=== PATIENT | female | born 1940 | race Caucasian/White ===

== ENCOUNTER → 2024-08-20 | Outpatient (REF) | payer MEDICARE, SELFPAY ==
[2024-08-20 09:56] LABS: Hematocrit 33.4 % (37-47); Hemoglobin 10.4 g/dL (12.0-15.0); Mean Corp Hgb Conc 31.1 g/dL (32-36); Mean Corpuscular Hgb 26.3 pg (27.0-32.0); Mean Corpuscular Volume 84.6 fL (81-99); Mean Platelet Vol. 9.7 fl (6.2-12.0); Platelet Count 405 K/mm3 (150-450); RBC Distribution Width CV 19.2 % (11.6-14.6); RBC Distribution Width SD 58.9 fl (35.1-43.9); Red Blood Count 3.95 M/mm3 (4.2-5.4); White Blood Count 5.9 K/mm3 (4.4-11.0)
[2024-08-20 10:56] LABS: ALB/GLOB Ratio 0.7 RATIO (0.9-2.4); AST(SGOT) 18 U/L (15-37); Alanine Aminotransfer ALT/SGPT 18 U/L (13-56); Albumin, Serum 2.7 g/dL (3.2-5.0); Alkaline Phosphatase 117 U/L (45-117); Anion Gap 7 (5-15); BUN 11 mg/dL (7-18); BUN/Creat Ratio 11.2 RATIO (10-20); Chloride 109 mmol/L (98-107); Creatinine, Serum 0.98 mg/dL (0.55-1.02); EST Glomerular Filtration Rate 57 mL/min (>60); Est Glom Filt Rate - Afr Amer 69 mL/min (>60); Globulin 4.1 g/dL (2.2-4.2); Glucose 97 mg/dL (74-106); Potassium 4.2 mmol/L (3.5-5.1); Protein, Total 6.8 g/dL (6.4-8.2); Sodium Level 138 mmol/L (136-145)
== END ==
LOC: OLS.SANC 05:22
PROVIDERS: Visit Provider Internal Medicine
DX: I48.91 Unspecified atrial fibrillation (principal); I10 Essential (primary) hypertension
CPT/HCPCS: 36415; 80053; 85027

== ENCOUNTER → 2024-09-03 | Outpatient (REF) | payer MEDICARE, SELFPAY ==
[2024-09-04 09:11] LABS: Color, Urine Yellow (Yellow); Glucose, Dipstick Normal (Normal); Ketone-Dipstick 5 mg/dl (Negative); Leukocyte Esterase-Dipstick 500 /ul (Negative); Nitrite-Dipstick Positive (Negative); Occult Blood-Urine 150 /ul (Negative); Protein-Dipstick 100 mg/dl (Negative); Urine Bilirubin Dipstick Negative (Negative); Urine Clarity Cloudy (Clear); Urine Urobilinogen Normal (Normal)
[2024-09-04 09:40] LABS: Bacteria 4+ /hpf (None Seen); Mucous, Urine 1+ /hpf (<or=2+); Red Blood Cells-Urine 5-10 SEEN /hpf (0-5); Squamous Epithelial Cells - UA 10-25 SEEN /hpf (5-10); White Blood Cells 50-100 SEEN /hpf (0-5)
== END ==
LOC: OLS.SANC 08:18
PROVIDERS: Referring Provider Internal Medicine; Visit Provider Internal Medicine
DX: I48.91 Unspecified atrial fibrillation (principal); I10 Essential (primary) hypertension; J44.9 Chronic obstructive pulmonary disease, unspecified; R41.82 Altered mental status, unspecified
CPT/HCPCS: 81001; 87077; 87086; 87088; 87186

== ENCOUNTER → 2024-09-03 | Outpatient (REF) | payer MEDICARE, SELFPAY ==
[2024-09-03 09:26] LABS: Hematocrit 30.8 % (37-47); Hemoglobin 9.5 g/dL (12.0-15.0); Mean Corp Hgb Conc 30.8 g/dL (32-36); Mean Corpuscular Hgb 25.7 pg (27.0-32.0); Mean Corpuscular Volume 83.5 fL (81-99); Mean Platelet Vol. 10.2 fl (6.2-12.0); Platelet Count 431 K/mm3 (150-450); RBC Distribution Width CV 17.9 % (11.6-14.6); RBC Distribution Width SD 54.3 fl (35.1-43.9); Red Blood Count 3.69 M/mm3 (4.2-5.4); White Blood Count 10.6 K/mm3 (4.4-11.0)
[2024-09-03 10:04] LABS: Anion Gap 9 (5-15); BUN 19 mg/dL (7-18); BUN/Creat Ratio 20.7 RATIO (10-20); Calcium,Total 9.4 mg/dL (8.5-10.1); Chloride 109 mmol/L (98-107); Creatinine, Serum 0.92 mg/dL (0.55-1.02); EST Glomerular Filtration Rate 62 mL/min (>60); Est Glom Filt Rate - Afr Amer 75 mL/min (>60); Glucose 115 mg/dL (74-106); Potassium 4.4 mmol/L (3.5-5.1); Sodium Level 139 mmol/L (136-145)
== END ==
LOC: OLS.SANC 05:00
PROVIDERS: Visit Provider Internal Medicine
DX: J44.9 Chronic obstructive pulmonary disease, unspecified (principal); I10 Essential (primary) hypertension; Z79.899 Other long term (current) drug therapy
CPT/HCPCS: 36415; 80048; 85027

== ENCOUNTER → 2024-09-10 | Outpatient (REF) | payer MEDICARE, SELFPAY ==
[2024-09-10 09:42] LABS: Hematocrit 31.9 % (37-47); Hemoglobin 9.7 g/dL (12.0-15.0); Mean Corp Hgb Conc 30.4 g/dL (32-36); Mean Corpuscular Hgb 26.1 pg (27.0-32.0); Mean Corpuscular Volume 85.8 fL (81-99); Mean Platelet Vol. 9.5 fl (6.2-12.0); Platelet Count 485 K/mm3 (150-450); RBC Distribution Width CV 17.8 % (11.6-14.6); RBC Distribution Width SD 55.2 fl (35.1-43.9); Red Blood Count 3.72 M/mm3 (4.2-5.4); White Blood Count 7.7 K/mm3 (4.4-11.0)
[2024-09-10 21:08] LABS: Anion Gap 5 (5-15); BUN 22 mg/dL (7-18); BUN/Creat Ratio 17.9 RATIO (10-20); Chloride 108 mmol/L (98-107); Creatinine, Serum 1.23 mg/dL (0.55-1.02); EST Glomerular Filtration Rate 44 mL/min (>60); Est Glom Filt Rate - Afr Amer 53 mL/min (>60); Glucose 98 mg/dL (74-106); Potassium 4.5 mmol/L (3.5-5.1); Sodium Level 137 mmol/L (136-145)
== END ==
LOC: OLS.SANC 05:00
PROVIDERS: Visit Provider Internal Medicine
DX: I48.91 Unspecified atrial fibrillation (principal); I10 Essential (primary) hypertension; J44.9 Chronic obstructive pulmonary disease, unspecified
CPT/HCPCS: 36415; 80048; 85027

== ENCOUNTER → 2024-09-17 | Outpatient (REF) | payer MEDICARE, SELFPAY ==
[2024-09-17 09:52] LABS: Anion Gap 10 (5-15); BUN 16 mg/dL (4-19); BUN/Creat Ratio 15.7 RATIO (10-20); Carbon Dioxide 21.6 mmol/L (22.0-29.0); Chloride 108 mmol/L (96-108); Creatinine, Serum 1.03 mg/dL (0.70-1.20); EST Glomerular Filtration Rate 54 (>60); Glucose 90 mg/dL (70-99); Potassium 4.5 mmol/L (3.3-5.1); Sodium Level 140 mmol/L (133-145)
== END ==
LOC: OLS.SANC 04:00
PROVIDERS: Referring Provider Internal Medicine; Visit Provider Internal Medicine
DX: J44.9 Chronic obstructive pulmonary disease, unspecified (principal)
CPT/HCPCS: 36415; 80048

== ENCOUNTER → 2024-10-08 | Outpatient (REF) | payer MEDICARE, SELFPAY ==
[2024-10-08 10:26] LABS: Hematocrit 30.4 % (37-47); Hemoglobin 9.6 g/dL (12.0-15.0); Mean Corp Hgb Conc 31.6 g/dL (32-36); Mean Corpuscular Hgb 27.4 pg (27.0-32.0); Mean Corpuscular Volume 86.9 fL (81-99); Mean Platelet Vol. 10.3 fl (6.2-12.0); Platelet Count 408 K/mm3 (150-450); RBC Distribution Width CV 17.5 % (11.6-14.6); RBC Distribution Width SD 56.2 fl (35.1-43.9); White Blood Count 6.4 K/mm3 (4.4-11.0)
[2024-10-08 15:30] LABS: Anion Gap 12 (5-15); BUN 17 mg/dL (4-19); BUN/Creat Ratio 16.5 RATIO (10-20); Chloride 106 mmol/L (98-108); Creatinine, Serum 1.05 mg/dL (0.70-1.20); EST Glomerular Filtration Rate 52 (>60); Glucose 98 mg/dL (70-99); Potassium 4.3 mmol/L (3.3-5.1); Sodium Level 137 mmol/L (133-145)
== END ==
LOC: OLS.SANC 05:00
PROVIDERS: Visit Provider Internal Medicine
DX: I48.91 Unspecified atrial fibrillation (principal); J44.9 Chronic obstructive pulmonary disease, unspecified; I82.409 Acute embolism and thrombosis of unspecified deep veins of unspecified lower extremity; I10 Essential (primary) hypertension
CPT/HCPCS: 36415; 80048; 85027

== ENCOUNTER → 2024-11-15 | Outpatient (REF) | payer MEDICARE, SELFPAY ==
[2024-11-15 08:46] LABS: Absolute Lymphocyte Count 1.77 X10^3/uL (0.83-4.51); Absolute Neutrophil Count 3.2 X10^3/uL (2.0-7.7); Basophil# 0.04 X10^3/uL; Basophil% 0.7 % (0-1); Eosinophil# 0.17 X10^3/uL; Eosinophils% 2.9 % (0-5); Hematocrit 30.9 % (37-47); Hemoglobin 9.8 g/dL (12.0-15.0); Lymphocyte # 1.77 X10^3/ul (0.83-4.51); Lymphocyte % 30.3 % (19-41); Mean Corp Hgb Conc 31.7 g/dL (32-36); Mean Corpuscular Hgb 28.4 pg (27.0-32.0); Mean Corpuscular Volume 89.6 fL (81-99); Mean Platelet Vol. 10.2 fl (6.2-12.0); Monocyte# 0.66 X10^3/uL; Monocyte% 11.3 % (0-10); NRBC Flagged by Analyzer 0 % (0-5); Neutrophil # 3.19 X10^3/uL (2.7-7.7); Neutrophil % 54.6 % (47-70); Platelet Count 303 K/mm3 (150-450); RBC Distribution Width CV 18.8 % (11.6-14.6); RBC Distribution Width SD 61.8 fl (35.1-43.9); Red Blood Count 3.45 M/mm3 (4.2-5.4); White Blood Count 5.8 K/mm3 (4.4-11.0)
[2024-11-15 09:02] LABS: Anion Gap 9 (5-15); BUN 19 mg/dL (4-19); BUN/Creat Ratio 18.3 RATIO (10-20); Carbon Dioxide 22.1 mmol/L (21.0-32.0); Chloride 108 mmol/L (98-108); Creatinine, Serum 1.03 mg/dL (0.70-1.20); EST Glomerular Filtration Rate 53 (>60); Glucose 91 mg/dL (70-99); Potassium 4.8 mmol/L (3.3-5.1); Sodium Level 138 mmol/L (133-145)
== END ==
LOC: OLS.SANC 05:00
PROVIDERS: Visit Provider Internal Medicine
DX: I48.91 Unspecified atrial fibrillation (principal); J44.9 Chronic obstructive pulmonary disease, unspecified; I10 Essential (primary) hypertension
CPT/HCPCS: 36415; 80048; 85025

== ENCOUNTER → 2025-01-07 04:00 | Outpatient (REF) | payer MEDICARE, SELFPAY ==
[2025-01-07 08:45] LABS: Hematocrit 30.4 % (37-47); Hemoglobin 9.8 g/dL (12.0-15.0); Mean Corp Hgb Conc 32.2 g/dL (32-36); Mean Corpuscular Hgb 29.9 pg (27.0-32.0); Mean Corpuscular Volume 92.7 fL (81-99); Platelet Count 254 K/mm3 (150-450); RBC Distribution Width CV 16.5 % (11.6-14.6); RBC Distribution Width SD 55.9 fl (35.1-43.9); Red Blood Count 3.28 M/mm3 (4.2-5.4); White Blood Count 4.5 K/mm3 (4.4-11.0)
[2025-01-07 09:09] LABS: Anion Gap 10 (5-15); BUN 20 mg/dL (4-19); BUN/Creat Ratio 17.7 RATIO (10-20); Calcium,Total 9.1 mg/dL (7.6-11.0); Carbon Dioxide 19.7 mmol/L (21.0-32.0); Chloride 109 mmol/L (98-108); Creatinine, Serum 1.15 mg/dL (0.70-1.20); EST Glomerular Filtration Rate 47 (>60); Glucose 87 mg/dL (70-99); Sodium Level 138 mmol/L (133-145)
== END ==
LOC: OLS.SANC 04:00
PROVIDERS: Referring Provider Internal Medicine; Visit Provider Internal Medicine
DX: I48.91 Unspecified atrial fibrillation (principal); J44.9 Chronic obstructive pulmonary disease, unspecified; I10 Essential (primary) hypertension
CPT/HCPCS: 36415; 80048; 85027

== ENCOUNTER → 2025-01-15 | Outpatient (REF) | payer MEDICARE, SELFPAY ==
[2025-01-15 11:48] LABS: Prothrombin Time (Protime)PT. 15.4 SECONDS (11.7-14.9)
== END ==
LOC: OLS.SANC 04:00
PROVIDERS: Referring Provider Internal Medicine; Visit Provider Internal Medicine
DX: Z79.01 Long term (current) use of anticoagulants (principal)
CPT/HCPCS: 36415; 85610

== ENCOUNTER → 2025-01-16 | Outpatient (REF) | payer MEDICARE, SELFPAY ==
[2025-01-16 08:40] LABS: INR Fingerstick 1.5
== END ==
LOC: OLS.SANC 05:00
PROVIDERS: Visit Provider Internal Medicine
DX: Z79.01 Long term (current) use of anticoagulants (principal)
CPT/HCPCS: 36416; 85610

== ENCOUNTER → 2025-01-17 | Outpatient (REF) | payer MEDICARE, SELFPAY ==
[2025-01-17 07:45] LABS: INR Fingerstick 1.9
== END ==
LOC: OLS.SANC 04:00
PROVIDERS: Referring Provider Internal Medicine; Visit Provider Internal Medicine
DX: Z79.01 Long term (current) use of anticoagulants (principal)
CPT/HCPCS: 36416; 85610

== ENCOUNTER → 2025-01-21 | Outpatient (REF) | payer MEDICARE, SELFPAY ==
[2025-01-21 09:22] LABS: Prothrombin Time (Protime)PT. 26.9 SECONDS (11.7-14.9)
== END ==
LOC: OLS.SANC 04:00
PROVIDERS: Referring Provider Internal Medicine; Visit Provider Internal Medicine
DX: Z79.01 Long term (current) use of anticoagulants (principal)
CPT/HCPCS: 85610

== ENCOUNTER → 2025-01-22 05:00 | Outpatient (REF) | payer MEDICARE, SELFPAY ==
[2025-01-22 08:27] LABS: Prothrombin Time (Protime)PT. 27.1 SECONDS (11.7-14.9)
== END ==
LOC: OLS.SANC 05:00
PROVIDERS: Visit Provider Internal Medicine
DX: Z79.01 Long term (current) use of anticoagulants (principal)
CPT/HCPCS: 36415; 85610

== ENCOUNTER → 2025-01-23 | Outpatient (REF) | payer MEDICARE, SELFPAY ==
[2025-01-23 08:59] LABS: Prothrombin Time (Protime)PT. 30.5 SECONDS (11.7-14.9)
== END ==
LOC: OLS.SANC 05:00
PROVIDERS: Visit Provider Internal Medicine
DX: Z79.01 Long term (current) use of anticoagulants (principal)
CPT/HCPCS: 36415; 85610

== ENCOUNTER → 2025-01-25 05:00 | Outpatient (REF) | payer MEDICARE, SELFPAY ==
--- OUTSIDE RECORDS SUMMARY | 2025-01-25 04:48 | XMS RPT_ITS | CCD ---
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 Name Role Phone Maryuri King Primary Care Provider Jared Evans Primary Care Provider Pcp, No Primary Care Provider Unavailabl Jared Barahona MD Primary Care Provider [phone] BERNIE MANE Admitting Unavailable IWONA CHU Attending Unavailable MING OLSON Consulting Unavailable SIM ELIZABETH Attending Unavailable PRIMO DODD Referring Unavailable Jared Evans MD Primary Care Provider Jared Evans MD Primary Care Provider [phone] Henok Hernandez PA-C Unavailable Henok Santizo PA-C Unavailable Jared Evans MD Primary Care Provider SYSTEM, PROVIDER NOT IN Referring Unavaila Megan Rice Attending Provider Unavailab Megan Porras Referring Provider Unavailab Megan Porras Attending Provider Unavailab Megan Porras Referring Provider Unavailab TORSTEN Hernandez Consulting Unavailable JARED EVANS Primary Care Unavailable FELICIA COREAS Admitting Unavailable DON EDWARDS Attending Unavailable Megan Montoya Primary Care Provider [phone] Kristyn Blankenship MD Unavailable RED HENDERSON Referring Unavail able JARED EVANS Primary Care Unavailable FELICIA LEVY Admitting Unavailable BRIANA PRITCHARD Attending Unavailable MAMMO, SAVANA A Attending Unavailable MAMMO, SAVANA A Referring Unavailable EVANS, MANDAREE N Primary Care Unavailable MAMMO, SAVANA A Referring Unavailable EVANS, [facility] Primary Care Unavailable MAMMO, SAVANA A Attending Unavailable EVANS, MANDAREE N Primary Care Unavailable MAMMO, SAVANA A Attending Unavailable EVANS, MANDAREE N Primary Care Unavailable MAMMO, SAVANA A Attending Unavailable EVANS, MANDAREE N Primary Care Unavailable MAMMO, SAVANA A Referring Unavailable EVANS, MANDAREE N Primary Care Unavailable MADHU, DEVIKA A Admitting Unavailable MADHU, DEVIKA A Attending Unavailable EVANS, MANDAREE N Primary Care Unavailable AZAR BURK Consulting Unavailable MAMMO, SAVANA A Admitting Unavailable MAMMO, SAVANA A Attending Unavailable EVANS, MANDAREE N Primary Care Unavailable MAMMO, SAVANA A Attending Unavailable SELF Referring Unavailable EVANS, [facility] Primary Care Unavailable EVANS, [facility] Primary Care Unavailable SELF Referring Unavailable EVANS, [facility] Primary Care Unavailable SELF Referring Unavailable EVANS, [facility] Primary Care Unavailable SELF Referring Unavailable EVANS, [facility] Primary Care Unavailable MAMMO, SAVANA A Attending Unavailable MAMMO, SAVANA A Referring Unavailable EVANS, [facility] Primary Care Unavailable SELF Referring Unavailable EVANS, [facility] Primary Care Unavailable EVANS, MANDAREE Primary Care Unavailable ANDRE WHIPPLE Consulting Unavailable PRATIBHA AVELAR Admitting Unavailable JORDIN ROLDAN Attending Unavailable EVANS, MANDAREE Primary Care Unavailable DEVIN, RED Attending Unavailable DEVIN, RED Admitting Unavailable EVANS, MANDAREE Primary Care Unavailable KRZYSZTOF, KRISTYN Admitting Unavailable KRZYSZTOF, KRISTYN Attending Unavailable EVANS, MANDAREE Primary Care Unavailable EVANS, MANDAREE Primary Care Unavailable EVANS, MANDAREE Primary Care Unavailable TRISTA, MARTHA Admitting Unavailable BARAGANADIRDEVIKA Attending Unavailable EVANS, MANDAREE Primary Care Unavailable DARLYNHENOK Attending Unavailable EVANS, MANDAREE Primary Care Unavailable KRZYSZTOF, KRISTYN Attending Unavailable EVANS, MANDAREE Primary Care Unavailable KRZYSZTOF, KRISTYN Attending Unavailable MERGY, ANTHONY K Referring Unavailable EVANS, MANDAREE Primary Care Unavailable EVANS, MANDAREE Primary Care Unavailable EVANS, MANDAREE Primary Care Unavailable MARIANA KING Referring Unavailable EVANS, MANDAREE Primary Care Unavailable MARIANA KING Referring Unavailable MEGAN MONTOYA Primary Care Unavailable KRZYSZTOF, KRISTYN Referring Unavailable KRZYSZTOF, KRISTYN Attending Unavailable EVANS, JARED Primary Care Unavailable EVANS, JARED Referring Unavailable EVANS, JARED Attending Unavailable EVANS, JARED Primary Care Unavailable EVANS, JARED Primary Care Unavailable EVANS, JARED Primary Care Unavailable GODJESSICA, HARMONY Attending Unavailable DARLYNHENOK ROMERO Attending Unavailable EVANS, JARED Primary Care Unavailable EVANS, JARED Primary Care Unavailable EVANS, JARED Referring Unavailable HERMILA PADILLA Attending Unavailable KRZYSZTOF, KRISTYN Attending Unavailable KATSAROS, PETER Primary Care Unavailable Katsaros OLS, Megan Attending Unavailable Katsaros OLS, Megan Attending Unavailable Katsaros OLS, Megan Attending Unavailable Katsaros OLS, Megan Attending Unavailable Katsaros OLS, Megan Referring Unavailable Katsaros OLS, Megan Attending Unavailable Katsaros OLS, Megan Attending Unavailable Katsaros OLS, Megan Referring Unavailable Katsaros OLS, Megan Attending Unavailable Katsaros OLS, Megan Attending Unavailable Katsaros, Megan Attending Unavailable Katsaros, Megan Referring Unavailable Katsaros OLS, Megan Attending Unavailable Katsaros OLS, Megan Attending Unavailable Katsaros OLS, Megan Attending Unavailable Katsaros OLS, Megan Attending Unavailable Katsaros OLS, Megan Attending Unavailable Katsaros OLS, Megan Attending Unavailable Allergies Allergy Classification Reported Allergen(s) Allergy Type Date of Onset Reaction(s) Facility (20 sources) Amoxicillin Drug Allergy 0 [place] (20 sources) fluticasone / salmeterol Drug Allergy 0 Intolerance [place], [place] (20 sources) Acetaminophen / oxyCODONE; Translations: [OXYCODONE-ACETAM INOPHEN] Drug Allergy 2 Itching [facility] Repository (9 sources) Ampicillin; Translations: [AMPICILLIN] Drug Allergy 4 Unknown [facility] (11 sources) Amoxicillin-Pot Clavulanate Drug Allergy 5 [facility] (1 source) FLUTICASONE PROPION-SALMETERO L; Translations: [FLUTICASONE PROPION-SALMETERO L] Propensity to adverse reactions to drug (disorder) 0 [facility] Repository Medications Current Medications Medication Drug Class(es) Dates Sig (Normalized) Sig (Original) acetaminophen 325 mg / HYDROcodone bitartrate 5 mg oral tablet (1 source) Opioid Agonist Start: 03-07-2020 End: 03-12-2020 take 1 tablet by mouth every eight hours as needed for pain HYDROcodone-acetami nophen (NORCO) 5-325 MG per tablet Indications: S/P surgical amputation of finger, right , Finger osteomyelitis, right (HCC) Take 1 tablet by mouth every 8 hours as needed for Pain for up to 5 days. 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 9 tablet 0 05/25/2022 05/28/2022 Active Comment on above: Take 1 tablet by donna every 8 hours as needed for pain for up to 3 days. [id number] 200 actuat albuterol 0.09 mg/actuat metered dose inhaler (20 sources) beta2-Adrenergic Agonist Start: 07-17-2024 take 2 puff(s) by inhalation every six hours as needed for wheezing albuterol HFA (PROVENTIL HFA, VENTOLIN HFA) 90 mcg/actuation inhaler Inhale 2 Puffs as instructed every 6 hours as needed for wheezing/shortness of breath. 07/17/2024 Active Start: 04-04-2024 End: 04-13-2024 Start: 02-17-2023 End: 07-07-2024 take 1 puff(s) by mouth every six hours albuterol 108 (90 Base) MCG/ACT inhaler inhale 1 puff by mouth and INTO THE LUNGS every 6 hours if needed for shortness of breath 02/17/2023 07/07/2024 Discontinued (Stop taking at discharge) End: 07-09-2024 take 2 puff(s) by inhalation every six hours as needed for wheezing albuterol HFA (PROVENTIL HFA, VENTOLIN HFA) 90 mcg/actuation inhaler Inhale 2 Puffs as instructed every 6 hours as needed for wheezing/shortness of breath. 07/09/2024 Discontinued amLODIPine 5 mg oral tablet (17 sources) Dihydropyridine Calcium Channel Essie Start: 08-12-2024 End: 08-12-2025 take 1 tablet by mouth once daily amLODIPine (Norvasc) 5 MG tablet Take 1 tablet (5 mg) by mouth daily. 08/12/2024 08/12/2025 Active Start: 05-26-2022 End: 06-25-2022 take 1 tablet by mouth once daily amLODIPine (NORVASC) 10 mg tablet Take 1 tablet by mouth once daily. 30 tablet 0 05/26/2022 06/25/2022 Active Start: 04-20-2007 End: 05-14-2022 take 1 tablet by mouth once daily amlodipine 5 mg ORAL Tab 1 Tab ORAL DAILY 0 0 04/20/2007 05/14/2022 Discontinued Comment on above: 1 Tab ORAL DAILY Take 1 tablet by donna th once daily. amoxicillin 875 mg / clavulanate 125 mg oral tablet (3 sources) Penicillin-class Antibacterial Start: 05-25-2022 End: 05-28-2022 take 1 tablet by mouth every twelve hours amoxicillin-cla vulanic acid (AUGMENTIN) 875-125 mg per tablet Take 1 tablet by mouth every 12 hours for 3 days. 6 tablet 0 05/25/2022 05/28/2022 Active Start: 05-14-2022 End: 05-24-2022 take 1 tablet by mouth twice daily at mealtime amoxicillin-clavulanic acid (AUGMENTIN) 875-125 mg per tablet Indications: Salivary gland swelling Take 1 tablet by mouth twice daily with meals for 10 days. 20 tablet 0 05/14/2022 05/24/2022 Active Comment on above: Take 1 tablet by donna th twice daily with meals for 10 days. Take 1 tablet by donna th every 12 hours for 3 days. apixaban 5 mg oral tablet (20 sources) Factor Xa Inhibitor Start: 07-17-2024 End: 08-16-2024 take 1 tablet by mouth twice daily apixaban (ELIQUIS) 5 mg tab(s) Take 1 tablet by mouth two times a day. 07/17/2024 Active Start: 02-18-2023 End: 04-13-2024 take 1 tablet by mouth twice daily Eliquis 5 MG tablet Take 5 mg by mouth 2 times daily. 02/18/2023 04/13/2024 Discontinued (Stop taking at discharge) Start: 06-28-2022 take 2 tablets by mo [facility] twice daily, then take 1 tablet by mouth twice daily apixaban (ELIQUIS) 5 mg (74 tabs) Take 2 tablets (10 mg) by mouth twice daily for 7 days. Then take 1 tablet (5 mg) by mouth twice daily for 23 days 74 tablet 0 06/28/2022 Active Comment on above: Take 2 tablets (10 m g) by mouth twice daily for 7 days. Then take 1 tablet (5 mg) by mouth twice daily for 23 days ascorbic acid 500 mg oral tablet (20 sources) Vitamin C Start: 07-17-2024 End: 08-16-2024 take 1 tablet by mouth three times daily ascorbic acid, vitamin C, (VITAMIN C) 500 mg tablet Take 1 tablet by mouth three times a day. 90 tablet 07/17/2024 Active Start: 06-28-2022 End: 07-07-2024 ascorbic acid (Vitamin C) 50 0 MG tablet Take 500 mg by mouth in the morning and 500 mg at noon and 500 mg in the evening. 06/28/2022 Active Start: 06-28-2022 End: 07-29-2022 take 1 tablet by mouth three times daily ascorbic acid, vitamin C, (VITAMIN C) 500 mg tablet Take 1 tablet by mouth three times daily. 90 tablet 06/28/2022 Suspended Comment on above: Take 1 tablet by [facility] three times daily. atorvastatin 80 mg oral tablet (20 sources) HMG-CoA Reductase Inhibitor Start: 4 End: take 1 tablet by mouth once daily at bedtime atorvastatin (LIPITOR) 80 mg tablet Take 1 tablet by mouth daily at bedtime. 06/19/2024 Active bacitracin 0.5 unt/mg topical ointment (1 source) Start: 2 End: 2 bacitracin 500 unit/gram ointment Apply to affected area once daily for 7 days. 28.4 g 1 06/29/2022 07/06/2022 Active Comment on above: Apply to affected ar ea once daily for 7 days. benoxinate hydrochloride 4 mg/ml / fluorescein sodium 3 mg/ml ophthalmic solution (5 sources) Diagnostic Dye Start: End: fluorescein-benoxina te 0.3-0.4 % 1 Drop (FLURESS) Start: 09-05-2024 End: 09-05-2024 fluorescein-benoxinate 0.3-0 .4 % 1 Drop (FLURESS) Start: 08-01-2024 End: 08-02-2024 fluorescein-benoxinate 0.3-0 .4 % 1 Drop (FLURESS) Start: 08-01-2024 End: 08-02-2024 1 Drop, BOTH EYES, DIRECT ED, Starting on Tue08/01/24 at 1300, Until Maida 08/02/24 at 0059, Administer for applanation tonometry. In the event of a Fluress shortage, administer Antonietta-Fluor 1 drop into both eyes as directed for applanation tonometry, [facility]HT CLINIC MED ORDERS Start: 07-12-2024 End: 07-12-2024 fluorescein-benoxinate 0.3-0 .4 % 1 Drop (FLURESS) bisacodyl 5 mg delayed release oral tablet (2 sources) Stimulant Laxative bisacodyl (Du lcolax) 10 MG suppository Insert into the rectum Daily as needed for constipation. Active take 1 tablet by donna th every twenty-four hours as needed for constipation bisacodyl (Dulcolax) 5 MG EC tablet Take 5 mg by mouth Daily as needed for constipation. Do not crush, chew, or split. Active cephalexin 500 mg oral capsule (3 sources) Cephalosporin Antibacterial Start: 03-05-2020 cephALEXin (KEFLEX) 500 MG capsule Start: 02-08-2020 End: 02-15-2020 cephALEXin (KEFLEX) capsule 500 mg clopidogrel 75 mg oral tablet (8 sources) [id number] Platelet Inhibitor Start: 11-22-2024 End: 11-22-2025 take 1 tablet by mouth once daily in the evening clopidogrel (Plavix) 75 MG tablet Take 1 tablet (75 mg) by mouth daily. 90 tablet 3 11/22/2024 1:31 PM EDT 11/22/2024 11/22/2025 Active Start: 11-22-2024 End: 11-22-2024 take 150 mg by mouth once 150 mg, Oral, Once, On Maida at 1145, For 1 dose dexamethasone 4 mg oral tablet (1 source) Corticosteroid Start: 05-25-2022 End: 06-01-2022 take 2 tablets by mouth every twelve hours, then take 1 tablet by mouth every twelve hours, then take 1 tablet by mouth once daily dexAMETHasone (DECADRON) 4 mg tablet Take 2 tablets by mouth every 12 hours for 3 days, THEN 1 tablet every 12 hours for 2 days, THEN 1 tablet once daily for 2 days. 18 tablet 0 05/25/2022 06/01/2022 Active Comment on above: Take 2 tablets by mo [facility] every 12 hours for 3 days, THEN 1 tablet every 12 hours for 2 days, THEN 1 tablet once daily for 2 days. 12 hr guaiFENesin 600 mg extended release oral tablet (1 source) Start: 06-28-2022 End: 07-06-2022 take 1 tablet by mouth every twelve hours guaiFENesin (MUCINEX) 600 mg 12 hr tablet Take 1 tablet by mouth every 12 hours for 7 days. 14 tablet 0 06/28/2022 07/06/2022 Active Comment on above: Take 1 tablet by [facility] every 12 hours for 7 days. 0.5 ml HYDROmorphone hydrochloride 1 mg/ml prefilled syringe (6 sources) Opioid Agonist Start: 07-17-2024 End: 07-24-2024 take 1 mg by mouth every four hours as needed HYDROmorphone (DILAUDID) 2 mg tablet Take 0.5 tablets by mouth every 4 hours as needed for up to 7 days. 0 07/17/2024 07/24/2024 Active Start: 07-17-2024 End: 07-24-2024 take 0.2 mg intravenously every two hours as needed HYDROmorphone (DILAUDID) 0.5 mg/0.5 mL injection Inject 0.2 mL intravenously every 2 hours as needed for up to 7 days. 0 07/17/2024 07/24/2024 Active Start: 04-06-2024 End: 04-10-2024 take 0.5 mg intravenously every four hours as needed for pain 0.5 mg, IntraVENous, Every 4 hours PRN, severe pain (7-10), Starting on 9/20/24 at 0726, If oral and IV narcotics ordered, use oral first and only use IV if oral is ineffective or cannot take oral. Do Not give oral and IV within 1 hour of each other unless specifically ordered. Start: 04-04-2024 End: 04-05-2024 take 1 tablet by mouth every four hours as needed for pain and pain 1 mg, Oral, Every 4 hours PRN, severe pain (7-10), moderate pain (4-6), Starting on Tue04/04/24 at 3, For 2 doses ammonium lactate 120 mg/ml topical cream (1 source) ammonium lactate (Amlactin) 12 % cream Apply topically if needed for dry skin. Active lactobacillus rhamnosus gg [id number] unt oral capsule (2 sources) Start: 06-29-20 End: 07-29-19 23 take 1 capsule by mouth once daily lactobacillus rhamnosus (CULTURELLE) 10 billion cell capsule Take 1 capsule by mouth once daily. 30 capsule 0 06/29/2022 07/29/2022 Active Comment on above: Take 1 capsule by [facility] once daily. lidocaine 0.04 mg/mg medicated patch (11 sources) Antiarrhythmic, Amide Local Anesthetic Start: 07-18-19 apply 1 dose transdermal route once daily lidocaine (SALONPAS) 4 % patch Apply 1 Patch as directed once daily. 07/18/2024 Active Start: 06-20-2024 End: 07-09-2024 apply 1 dose transdermal route once daily, then apply 1 dose transdermal route every twelve hours lidocaine (SALONPAS) 4 % patch Apply 1 Patch as directed once daily. APPLY TO: SHOULDER Left - Remove patch after 12 hours. 06/20/2024 07/09/2024 Discontinued (Adjust Sig - Block E-Cancel) magnesium hydroxide 80 mg/ml oral suspension (1 source) magnesium hydrox alexandra (Milk of Magnesia) 400 MG/5ML suspension Take by mouth Nightly. Active 24 hr metoprolol succinate 25 mg extended release oral tablet (20 sources) beta-Adrenergic Essie Start: 07-18-2024 take 1 tablet by mouth once daily metoprolol succinate ER (TOPROL XL) 25 mg 24 hr tablet Take 1 tablet by mouth once daily. 07/18/2024 Active Start: 06-19-2024 take 0.5 tablet by m outh every twelve hours metoprolol tartrate, short acting, (LOPRESSOR) 25 mg tablet Take 0.5 tablets by mouth every 12 hours. 06/19/2024 Suspended Start: 03-12-2024 End: 08-16-2024 take 1 tablet by mouth in the morning metoprolol tartrate (Lopressor) 25 MG tablet Take 25 mg by mouth in the morning and 25 mg in the evening. Take with meals. Take with food.. 03/12/2024 Active Start: 06-28-2022 End: 07-29-2022 take 1 tablet by mouth every twelve hours metoprolol tartrate, short acting, (LOPRESSOR) 25 mg tablet Take 1 tablet by mouth every 12 hours. 60 tablet 0 06/28/2022 07/29/2022 Active Comment on above: Take 1 tablet by donna th every 12 hours. 14 actuat mometasone furoate 0.22 mg/actuat dry powder inhaler (7 sources) Corticosteroid Start: take 1 puff(s) by inhalation once daily mometasone (ASMANEX) 220 mcg/ actuation (14) aepb Inhale 1 Puff as instructed once daily. 07/18/2024 Active Multiple Vitamin (multivitamin) tablet (1 source) take 1 tablet by mouth once daily Multiple Vitamin (multivitamin) tablet Take 1 tablet by mouth daily. Active naloxone 4 mg/actuation nasal spray (NARCAN) (7 sources) Start: naloxone 4 mg/actuation nasal spray (NARCAN) Use 1 spray in one nostril as needed for overdose. May repeat every 2 to 3 min in alternating nostrils until medical assistance is available 2 Each 07/17/2024 Active 10 actuat olodaterol 0.0025 mg/actuat / tiotropium 0.0025 mg/actuat inhalation spray (7 sources) Anticholinergic, beta2-Adrenergic Agonist Start: take 2 puff(s) by inhalation once daily tiotropium 2.5 mcg-olodateroL 2.5 mcg/actuation mist for inhalation (STIOLTO RESPIMAT) Inhale 2 Puffs as instructed once daily. 0 07/18/2024 Active phenylephrine hydrochloride 25 mg/ml ophthalmic solution (11 sources) alpha-1 Adrenergic Agonist Start: End: PHENYLephrine 2.5 % 1 drop (AK-DILATE, KEL-SYNEPHRINE) Start: 01-02-2025 End: 01-02-2025 1 drop, RIGHT EYE, DIRECT ED, Starting on Tue01/02/25 at 1100, Until Tue01/02/25 at 2259, Administer for dilation [facility] FROM L[facility], [facility] Start: 10-01-2024 End: 10-01-2024 PHENYLephrine 2.5 % 1 Drop ( AK-DILATE, KEL-SYNEPHRINE) Start: 10-01-2024 End: 10-01-2024 1 Drop, RIGHT EYE, DIRECT ED, Starting on Tue10/01/24 at 1030, Until Tue10/01/24 at 2229, Administer for dilation [facility] L[facility], [facility] Start: 09-05-2024 End: 09-05-2024 PHENYLephrine 2.5 % 1 Drop ( AK-DILATE, KEL-SYNEPHRINE) Start: 09-05-2024 End: 09-05-2024 1 Drop, RIGHT EYE, DIRECT ED, Starting on Tue09/05/24 at 1030, Until Tue09/05/24 at 2229, Administer for dilation PR[facility] FROM LIGHT, [facility] Start: 08-01-2024 End: 08-02-2024 PHENYLephrine 2.5 % 1 Drop ( AK-DILATE, KEL-SYNEPHRINE) Start: 08-01-2024 End: 08-02-2024 1 Drop, RIGHT EYE, DIRECT ED, Starting on Tue08/01/24 at 1300, Until Tue08/02/24 at 0059, Administer for dilation PROTECT FROM LIGHT, [facility] MED ORDERS Start: 07-16-2024 End: 07-16-2024 PHENYLephrine 2.5 % 1 Drop ( AK-DILATE, KEL-SYNEPHRINE) Start: 07-16-2024 End: 07-16-2024 1 Drop, RIGHT EYE, DIRECT ED, Starting on 07/16/24 at 0900, Until Tue07/16/24 at 2059, Administer for dilation PROTECT FROM LIGHT Start: 07-09-2024 End: 07-09-2024 PHENYLephrine 2.5 % 1 Drop ( AK-DILATE, KEL-SYNEPHRINE) polyethylene glycol 3350 25153 mg powder for oral solution (11 sources) Osmotic Laxative Start: 07-17-2024 polyethylene glycol 3350 17 gram packet Take 1 Packet by mouth once daily as needed. Dissolve dose in 4 - 8 ounces of liquid and take as directed. 07/17/2024 Active Start: 07-05-2024 End: 07-07-2024 take 17 g by mouth every twenty-four hours as needed for constipation 17 g, Oral, Daily PRN, constipation, Starting on Maida 07/05/24 at 1324, 1st line for treatment of constipation - give scheduled if no bowel movement in past 24 hours. Start: 04-04-2024 End: 04-13-2024 take 17 g by mouth every twenty-four hours as needed for constipation polyvinyl alcohol 0.014 ml/ml ophthalmic solution (7 sources) Start: 07-17-2024 take 2 drop(s) into the eye(s) five times daily polyvinyl alcohol (LIQUIFILM TEARS) 1.4 % ophthalmic solution Use 2 Drops in the right eye five times a day. 07/17/2024 Active potassium phosphate 155 mg / sodium phosphate, dibasic 852 mg / sodium phosphate, monobasic 130 mg oral tablet (7 sources) Start: 07-17-2024 take 1 tablet by mouth twice daily phosphorus (K PHOS NEUTRAL) 250 mg tablet Take 1 tablet by mouth two times a day. 07/17/2024 Active prednisoLONE acetate 10 mg/ml ophthalmic suspension (20 sources) Corticosteroid Start: 09-05-2024 prednisoLONE acetate (PRED FORTE) 1 % ophthalmic suspension Use 1 Drop in the right eye two times a day. 5 mL 09/05/2024 Active Start: 08-03-2024 End: 08-16-2024 take 1 drop(s) into the eye(s) four times daily 1 drop, Right Eye, 4 times daily, First dose on Tue08/03/24 at 1300 Start: 07-13-2024 End: 09-05-2024 prednisoLONE acetate (PRED F ORTE) 1 % ophthalmic suspension Use 1 Drop in the right eye four times daily. 5 mL 07/27/2024 09/05/2024 Discontinued Start: 07-06-2024 take 1 drop(s) into the eye(s) every four hours prednisoLONE acetate (Pred-Forte) 1 % ophthalmic suspension Administer 1 drop into the right eye every 4 hours. 07/06/2024 Active Start: 07-05-2024 End: 07-07-2024 1 drop, Right Eye, Every 4 h ours scheduled (6 times per day), First dose on Maida 07/05/24 at 1210 predniSONE 20 mg oral tablet (7 sources) Start: 07-18-2024 take 1 tablet by mouth once daily predniSONE (DELTASONE) 20 mg tablet 1 tablet by ORAL/FEEDING TUBE route once daily. 07/18/2024 Active proparacaine hydrochloride 5 mg/ml ophthalmic solution (6 sources) Local Anesthetic Start: 10-01-2024 End: 10-01-2024 proparacaine 0.5 % 1 Drop (ALCAINE) Start: 10-01-2024 End: 10-01-2024 1 Drop, BOTH EYES, DIRECT ED, Starting on Tue10/01/24 at 1030, Until Tue10/01/24 at 2229, Administer for pneumo tonometry, tonopen tonometry, or pachymetry. In the event of a proparacaine shortage, administer tetracaine 0.5% ophthalmic drops 1 drop in both eyes as directed for pneumo tonometry, tonopen tonometry, or pachymetry, [facility] CL[facility]IC MED ORDERS Start: 09-05-2024 End: 09-05-2024 proparacaine 0.5 % 1 Drop (A LCAINE) Start: 07-16-2024 End: 07-16-2024 proparacaine 0.5 % 1 Drop (A LCAINE) Start: 07-16-2024 End: 07-16-2024 1 Drop, RIGHT EYE, DIRECT ED, Starting on Tue07/16/24 at 0900, Until Tue07/16/24 at 2059, Administer for pneumo tonometry, tonopen tonometry, or pachymetry. In the event of a proparacaine shortage, administer tetracaine 0.5% ophthalmic drops 1 drop in the right eye as directed for pneumo tonometry, tonopen tonometry, or pachymetry Start: 07-12-2024 End: 07-12-2024 proparacaine 0.5 % 1 Drop (A LCAINE) sucralfate 1000 mg oral tablet (2 sources) Aluminum Complex Start: 06-28-2022 End: 07-29-2022 take 1 tablet by mouth four times daily sucralfate (CARAFATE) 1 gram tablet Take 1 tablet by mouth four times daily. 120 tablet 0 06/28/2022 07/29/2022 Active Comment on above: Take 1 tablet by donna th four times daily. sulfamethoxazole 800 mg / trimethoprim 160 mg oral tablet (1 source) Dihydrofolate Reductase Inhibitor Antibacterial, Sulfonamide Antimicrobial Start: 03-05-2020 sulfamethoxazole -trimethoprim (BACTRIM DS;SEPTRA DS) 800-160 MG per tablet tropicamide 10 mg/ml ophthalmic solution (11 sources) Anticholinergic Start: 01-02-2025 End: 01-02-2025 tropicamide 1 % 1 drop (MYDRIACYL) Start: 01-02-2025 End: 01-02-2025 1 drop, RIGHT EYE, DIRECT ED, Starting on Tue01/02/25 at 1100, Until Tue01/02/25 at 2259, Administer for dilation, OPHT CLINIC MED ORDERS Start: 10-01-2024 End: 10-01-2024 tropicamide 1 % 1 Drop (MYDR IACYL) Start: 10-01-2024 End: 10-01-2024 1 Drop, RIGHT EYE, DIRECT ED, Starting on Tue10/01/24 at 1030, Until Tue10/01/24 at 2229, Administer for dilation, OPHT CLINIC MED ORDERS Start: 09-05-2024 End: 09-05-2024 tropicamide 1 % 1 Drop (MYDR IACYL) Start: 09-05-2024 End: 09-05-2024 1 Drop, RIGHT EYE, DIRECT ED, Starting on Tue09/05/24 at 1030, Until Tue09/05/24 at 2229, Administer for dilation, OPHT CLINIC MED ORDERS Start: 08-01-2024 End: 08-02-2024 tropicamide 1 % 1 Drop (MYDR IACYL) Start: 08-01-2024 End: 08-02-2024 1 Drop, RIGHT EYE, DIRECT ED, Starting on 08/01/24 at 1300, Until [place] 08/02/24 at 0059, Administer for dilation, OPHT CLINIC MED ORDERS Start: 07-16-2024 End: 07-16-2024 tropicamide 1 % 1 Drop (MYDR IACYL) Start: 07-16-2024 End: 07-16-2024 1 Drop, RIGHT EYE, DIRECT ED, Starting on Tue07/16/24 at 0900, Until Tue07/16/24 at 2058, Administer for dilation Start: 07-09-2024 End: 07-09-2024 tropicamide 1 % 1 Drop (MYDR IACYL) 7 actuat umeclidinium 0.0625 mg/actuat dry powder inhaler (10 sources) Anticholinergic Start: 09-29-2024 take 1 puff(s) by inhalation once daily Incruse Ellipta 62.5 MCG/ACT inhalation Inhale 1 puff daily. 09/29/2024 Active zinc oxide 0.2 mg/mg topical ointment (4 sources) Start: 06-28-2022 End: 07-28-2022 zinc oxide 20 % ointment Apply to affected area as needed. 0 06/28/2022 07/28/2022 Active Comment on above: Apply to affected ar ea as needed. Apply to affected ar ea twice daily. Completed/Discontinued Medications Medication Drug Class(es) Dates Sig (Normalized) Sig (Original) acetaminophen 500 mg oral tablet (20 sources) Start: 11-22-2024 End: 11-22-2024 take 1000 mg by mouth once, then take 4000 mg by mouth every twenty-four hours 1,000 mg, Oral, Once, On [facility] 11/22/24 at 0830, For 1 dose, Preprocedure, Maximum dose of acetaminophen is 4000 mg from all sources in 24 hours. Do not administer if patient has taken tylenol Start: 08-03-2024 End: 08-16-2024 take 1 tablet by mouth every six hours as needed for pain and fever acetaminophen (Tylenol) tablet 650 mg Start: 07-17-2024 take 2 tablets by [facility] four times daily acetaminophen (Tylenol) 325 MG tablet Take 650 mg by mouth 4 times a day. 07/17/2024 Active Start: 07-05-2024 End: 07-07-2024 take 1 tablet by mouth every six hours as needed for pain and fever acetaminophen (Tylenol) tablet 650 mg Start: 04-04-2024 End: 04-13-2024 take 1 tablet by mouth every six hours as needed for pain and fever acetaminophen (Tylenol) tablet 650 mg Start: 06-28-2022 take 2 tablets by mo ut every six hours acetaminophen (TYLENOL) 325 mg tablet Take 2 tablets by mouth every 6 hours. 07/17/2024 Active acetaminophen (T YLENOL) 325 mg cap Take by mouth. 0 Active Comment on above: Take by mouth. Take 2 tablets by mo uth every 6 hours as needed for pain. albuterol 0.833 mg/ml / ipratropium bromide 0.167 mg/ml inhalation solution (2 sources) Anticholinergic, beta2-Adrenergic Agonist Start: End: ALPRAZolam 0.25 mg disintegrating oral tablet (2 sources) Benzodiazepine Start: End: take 0.25 mg by mouth once as needed for anxiety 0.25 mg, Oral, Once PRN, anxiety, Starting on Tue11/22/24 at 0809, For 1 dose, Preprocedure, Please do not administer prior to obtaining consent and/or history and physical. ampicillin-sulbactam (Unasyn) 3,000 mg in sodium chloride 0.9 % 100 mL IVPB (Add-[place]) (2 sources) Start: End: take 3000 mg intravenously every six hours 3,000 mg, IntraVENous, at 200 mL/hr, Administer over 30 Minutes, Every 6 hours, First dose on Tue08/03/24 at 1200, For 18 doses, ADD-[place] bag, Suspected Indication (Select all that apply): Aspiration Pneumonia aspirin 81 mg delayed release oral tablet (8 sources) Platelet Aggregation Inhibitor, Nonsteroidal Anti-inflammatory Drug Start: End: take 81 mg by mouth once 81 mg, Oral, Once, On Tue11/22/24 at 1145, For 1 dose, Do not crush, chew, or split. take 1 tablet by mouth once deyanira y Aspirin 81 mg tab Take 81 mg by mouth once daily. Active atropine sulfate 10 mg/ml ophthalmic solution (6 sources) Anticholinergic, Cholinergic Muscarinic Antagonist Start: 08-03-2024 End: 08-16-2024 take 1 drop(s) into the eye(s) once daily 1 drop, Right Eye, Daily, First dose on Tue08/03/24 at 1100 Start: 07-18-2024 End: 09-05-2024 take 1 drop(s) into the eye(s) once daily atropine 1 % ophthalmic solution Use 1 Drop in the right eye once daily. 07/18/2024 09/05/2024 Discontinued (Course of therapy completed) brimonidine tartrate 2 mg/ml ophthalmic solution (7 sources) alpha-Adrenergic Agonist Start: 07-06-2024 End: 07-06-2025 take 1 drop(s) into the eye(s) three times daily brimonidine (AlphaGAN) 0.2 % ophthalmic solution Administer 1 drop into the right eye 3 times daily. 07/06/2024 08/03/2024 Discontinued (Therapy completed) Start: 07-05-2024 End: 07-07-2024 take 1 drop(s) into the eye(s) three times daily 1 drop, Right Eye, 3 times daily, First dose on Tue07/05/24 at 1400 12 hr buPROPion hydrochloride 150 mg extended release oral tablet (2 sources) Aminoketone take 1 tablet by mouth once daily buPROPion SR (WELLBUTRIN SR) 150 mg ORAL TbSR 1 tab po daily 0 Active Comment on above: 1 tab po daily ciprofloxacin 3 mg/ml ophthalmic solution (5 sources) Quinolone Antimicrobial Start: 07-27-19 End: 09-05-19 take 1 drop(s) into the eye(s) four times daily ciprofloxacin HCl (CILOXAN) 0.3 % ophthalmic solution Use 1 Drop in the right eye four times daily. 5 mL 07/27/2024 09/05/2024 Discontinued (Course of therapy completed) Start: 07-13-2024 End: 07-18-2024 take 1 drop(s) into the eye(s) four times daily ciprofloxacin HCl (CILOXAN) 0.3 % ophthalmic solution Use 1 drop in the right eye four times daily. 5 mL 07/16/2024 07/18/2024 Active cyclobenzaprine hydrochloride 10 mg oral tablet (1 source) Muscle Relaxant Start: 04-20-2007 End: 05-14-2022 take 1 tablet by mouth three times daily cyclobenzaprine 10 mg ORAL Tab 1 Tab ORAL 3 TIMES DAILY 0 0 04/20/2007 05/14/2022 Discontinued Comment on above: 1 Tab ORAL 3 TIMES D AILY docusate sodium 100 mg oral capsule (1 source) Start: 04-20-2007 End: 05-14-2022 take 1 capsule by mouth twice daily as needed docusate sodium 100 mg ORAL Cap 1 Cap ORAL 2 TIMES DAILY NEEDED 0 0 04/20/2007 05/14/2022 Discontinued Comment on above: 1 Cap ORAL 2 TIMES D AILY NEEDED dorzolamide 20 mg/ml ophthalmic solution (6 sources) Carbonic Anhydrase Inhibitor Start: 07-06-2024 End: 07-06-2025 take 1 drop(s) into the eye(s) three times daily dorzolamide (Trusopt) 2 % ophthalmic solution Indications: Visual disturbance, subjective Administer 1 drop into the right eye 3 times daily. 07/06/2024 08/03/2024 Discontinued (Therapy completed) Start: 07-05-2024 End: 07-07-2024 take 1 drop(s) into the eye(s) three times daily 1 drop, Right Eye, 3 times daily, First dose on [place] 07/05/24 at 1400 0.8 ml enoxaparin sodium 100 mg/ml prefilled syringe (13 sources) Low Molecular Weight Heparin Start: 06-19-2024 End: 08-16-2024 enoxaparin (Lovenox) 80 MG/0.8ML solution prefilled syringe Inject 70 mg under the skin twice a day. 06/19/2024 08/16/2024 Discontinued (Stop taking at discharge) Start: 06-19-2024 End: 07-07-2024 inject 70 mg by subcutaneous injection every twelve hours enoxaparin (LOVENOX) 80 mg/0.8 mL Inject 0.7 mL subcutaneously every 12 hours. 06/19/2024 Suspended EPINEPHrine 0.01 mg/ml / lidocaine hydrochloride 10 mg/ml injectable solution (1 source) Antiarrhythmic, alpha-Adrenergic Agonist, beta-Adrenergic Agonist, Catecholamine, Amide Local Anesthetic Start: 03-07-2020 End: 03-07-2020 lidocaine-EPINEPHrine 1 percent-1:[id number] injection 8 mL ergocalciferol 1.25 mg oral capsule (3 sources) Provitamin D2 Compound End: 07-05-2024 take 1 capsule by mouth every week ergocalciferol (Vitamin D2) 1.25 MG (44952 UT) capsule Take 1.25 mg by mouth 1 (one) time per week. 07/05/2024 Discontinued (Entered in error) erythromycin 0.005 mg/mg ophthalmic ointment (2 sources) Macrolide, Macrolide Antimicrobial Start: 08-03-2024 End: 08-16-2024 Right Eye, As needed, right eye drainage, Starting on Tue08/03/24 at 1033, Apply Amount per Dose: 0.5 inch (~1 cm) per dose. For eye discharge famotidine (Pepcid) 20 mg in sodium chloride (PF) 0.9 % 10 mL injection (2 sources) Start: 08-03-2024 End: 08-03-2024 20 mg, IntraVENous, Administer over 2 Minutes, Once, On Tue08/03/24 at 0245, For 1 dose, IV Push over minimum of 2 minutes - Dilute with 10 mL NS 2 ml fentaNYL 0.05 mg/ml injection (2 sources) Opioid Agonist Start: 07-05-2024 End: 07-05-2024 take 1 dose by mouth every hour 25 mcg, IntraVENous, Once, On [place] 07/05/24 at 0455, For 1 dose, If oral and IV narcotics ordered, use oral first and only use IV if oral is ineffective or cannot take oral. Do Not give oral and IV within 1 hour of each other unless specifically ordered. Start: 07-05-2024 End: 07-05-2024 take 1 dose by mouth every hour 25 mcg, IntraVENous, Once, On [place] 07/05/24 at 0455, For 1 dose, If oral and IV narcotics ordered, use oral first and only use IV if oral is ineffective or cannot take oral. Do Not give oral and IV within 1 hour of each other unless specifically ordered. FLUoxetine 40 mg oral capsule (1 source) Serotonin Reuptake Inhibitor End: 05-14-2022 take 1 tablet by mouth once daily Fluoxetine HCl 40 mg ORAL Cap 1 tab po daily 0 05/14/2022 Discontinued Comment on above: 1 tab po daily fluticasone / salmeterol (1 source) Corticosteroid, beta2-Adrenergic Agonist Start: 04-20-2007 End: 05-14-2022 take 1 puff(s) by inhalation twice daily fluticasone-salmet mary 100-50 mcg/Dose INHALATION DsDv 1 Puff INHALATION 2 TIMES DAILY 0 0 04/20/2007 05/14/2022 Discontinued Comment on above: 1 Puff INHALATION 2 TIMES DAILY 30 actuat fluticasone furoate 0.1 mg/actuat / umeclidinium 0.0625 mg/actuat / vilanterol 0.025 mg/actuat dry powder inhaler (20 sources) Anticholinergic, Corticosteroid, beta2-Adrenergic Agonist Start: 04-11-2024 End: 04-13-2024 take 1 puff(s) by inhalation once daily 1 puff, Inhalation, Daily, First dose (after last modification) on Tue04/11/24 at 0600, Drug Name: Trelegy Ellipta 100-62.5-25mcg/act , Form: aerosol powder, Length of Therapy: Indefinite, How soon needed? (normally 72 hrs needed to procure): 0-24 hrs, Reason for Non-Formulary: home med Start: 05-19-2023 take 1 puff(s) by mo [facility] once daily Trelegy Ellipta 100-62.5-25 MCG/ACT aerosol powder Take 1 puff by mouth daily. 05/19/2023 Active Start: 05-19-2023 Trelegy Ellipt a 100-62.5-25 MCG/ACT aerosol powder 05/19/2023 Active 60 actuat formoterol fumarate 0.005 mg/actuat / mometasone furoate 0.1 mg/actuat metered dose inhaler (6 sources) Corticosteroid, beta2-Adrenergic Agonist Start: 08-03-2024 End: 08-16-2024 take 2 puff(s) by mouth twice daily 2 puff, Inhalation, 2 times daily, First dose on Tue08/03/24 at 1030, Rinse mouth with water after use to reduce aftertaste and incidence of candidiasis. Do not swallow. Start: 07-05-2024 End: 07-07-2024 take 2 puff(s) by mouth twice daily 2 puff, Inhalation, 2 times daily, First dose on Tue07/05/24 at 2000, Rinse mouth with water after use to reduce aftertaste and incidence of candidiasis. Do not swallow. Start: 04-04-2024 End: 04-10-2024 take 2 puff(s) by mouth twice daily 2 puff, Inhalation, 2 times daily, First dose on Tue04/04/24 at 0800, Rinse mouth with water after use to reduce aftertaste and incidence of candidiasis. Do not swallow. furosemide 40 mg oral tablet (14 sources) Loop Diuretic Start: 04-20-2024 End: 07-07-2024 take 1 tablet by mouth once daily as needed furosemide (Lasix) 40 MG tablet TAKE 1 TABLET BY MOUTH EVERY DAY NEEDED SWELLING 04/20/2024 07/07/2024 Discontinued (Stop taking at discharge) Start: 04-09-2024 End: 04-09-2024 40 mg, IntraVENous, Once, On Tue04/09/24 at 1430, For 1 dose gadobutrol (Gadavist) injection 1 mL (2 sources) Start: 06-15-2023 End: 06-15-2023 gadobutrol (Gadavist) injection 1 mL 250 ml heparin sodium, porcine 100 unt/ml injection (6 sources) Unfractionated Heparin, Anti-coagulant Start: 04-03-2024 End: 04-03-2024 5,784 Units (80 Units/kg 72.3 kg), IntraVENous, Once, On Tue04/03/24 at 2235, For 1 dose, Initial one time bolus Start: 04-03-2024 End: 04-13-2024 5-30 Units/kg/hr 72.3 kg (3. 615-21.69 mL/hr, rounded to 3.6- 21.7 mL/hr), IntraVENous, Continuous, Starting on Tue04/03/24 at 2235, HIGH Dose Heparin Weight Based Dosing (VTE/DVT/PE) >>>>Initial dose: 18 units/kg/hr 100.9 Hold heparin for 60 min Decrease infusion by 2 units/kg/hr - notify prescriber; Check aPTT: 6 hours after initiation and 6 hours after every dose change - every 12 hrs x 1 day after 2 consecutive therapeutic aPTT - daily after every 12 hrs x 1 day is complete. Start: 04-03-2024 End: 04-13-2024 2,892 Units (40 Units/kg 72. 3 kg), IntraVENous, As needed, heparin dosing algorithm, Starting on Tue04/03/24 at 2233, Half dose re-bolus based on pharmacy algorithm 1 ml hydrALAZINE hydrochloride 20 mg/ml injection (4 sources) Arteriolar Vasodilator Start: 07-05-2024 End: 07-05-2024 take 10 mg intravenously every four hours as needed for hypertension 10 mg, IntraVENous, Every 4 hours PRN, high blood pressure, SBP >150, Starting on [place] 07/05/24 at 0527 Start: 07-05-2024 End: 07-05-2024 10 mg, IntraVENous, Once, On [place] 07/05/24 at 0520, For 1 dose Start: 07-05-2024 End: 07-05-2024 10 mg, IntraVENous, Once, On [place] 07/05/24 at 0520, For 1 dose hydroCHLOROthiazide 25 mg oral tablet (1 source) Thiazide Diuretic Start: 04-22-2007 End: 05-14-2022 take 1 tablet by mouth once daily hydrochlorothiazide 25 mg ORAL Tab Take one(1) tablet daily. 30 0 04/22/2007 05/14/2022 Discontinued Comment on above: Take one(1) tablet d aily. HYDROmorphone (Dilaudid) injection 0.25 mg (2 sources) Start: 07-05-2024 End: 07-07-2024 take 0.25 mg intravenously every four hours as needed for pain HYDROmorphone (Dilaudid) injection 0.25 mg iopamidol (Isovue-370) 76 % injection 100 mL (2 sources) Start: 07-05-2024 End: 07-05-2024 take 100 mL intravenously once as needed 100 mL, IntraVENous, IMG once PRN, contrast, Starting on [place] 07/05/24 at 0440, For 1 dose iopamidol (Isovue-370) 76 % injection 75 mL (4 sources) Start: 04-03-2024 End: 04-03-2024 take 75 mL intravenously once as needed 75 mL, IntraVENous, IMG once PRN, contrast, Starting on e 04/03/24 at 2112, For 1 dose Start: 03-08-2023 End: 03-08-2023 iopamidol (Isovue-370) 76 % injection 75 mL ipratropium bromide 0.2 mg/ml inhalation solution (1 source) Anticholinergic Start: 04-20-2007 End: 05-14-2022 take 2.5 mL by inhalation every six hours as needed ipratropium 0.02 % INHALATION Soln 2.5 mL INHALATION EVERY 6 HOURS NEEDED 0 0 04/20/2007 05/14/2022 Discontinued Comment on above: 2.5 mL INHALATION EV LUIS 6 HOURS NEEDED irbesartan 150 mg oral tablet (1 source) Angiotensin 2 Receptor Essie End: 05-14-2022 take 1 tablet by mouth once daily irbesartan (AVAPRO) 150 mg ORAL Tab 1 tab po daily 0 05/14/2022 Discontinued Comment on above: 1 tab po daily lisinopril 20 mg oral tablet (20 sources) Angiotensin Converting Enzyme Inhibitor Start: 08-04-2024 End: 08-16-2024 take 40 mg by mouth once daily 40 mg, Oral, Daily, First dose on 08/04/24 at 0800 Start: 07-05-2024 End: 07-07-2024 take 40 mg by mouth once daily 40 mg, Oral, Daily, Fir st dose on [place] 07/05/24 at 1615 Start: 06-20-2024 End: 07-09-2024 take 1 tablet by mouth once daily lisinopril (ZESTRIL) 10 mg tablet Take 1 tablet by mouth once daily. 06/20/2024 07/09/2024 Discontinued (Adjust Sig - Block E-Cancel) Start: 05-26-2022 take 1 tablet by donna th once daily lisinopril (ZESTRIL) 40 mg tablet Take 1 tablet by mouth once daily. 07/18/2024 Active Start: 05-26-2022 End: 04-13-2024 take 1 tablet by mouth in the morning lisinopril 5 MG tablet Take 5 mg by mouth in the morning. 05/26/2022 Active Comment on above: Take 1 tablet by donna th once daily. Take 5 mg by mouth o nce daily. lovastatin 40 mg oral tablet (1 source) HMG-CoA Reductase Inhibitor End: 05-14-2022 take 1 tablet by mouth once daily Lovastatin 40 mg ORAL Tab 1 tab po daily 0 05/14/2022 Discontinued Comment on above: 1 tab po daily 1 ml morphine sulfate 4 mg/ml cartridge (4 sources) Opioid Agonist Start: 08-03-2024 End: 08-03-2024 take 1 dose by mouth every hour 2 mg, IntraVENous, Once, On Tue08/03/24 at 0255, For 1 dose, If oral and IV narcotics ordered, use oral first and only use IV if oral is ineffective or cannot take oral. Do Not give oral and IV within 1 hour of each other unless specifically ordered. Start: 07-05-2024 End: 07-05-2024 take 1 dose by mouth every hour 4 mg, IntraVENous, Once, On [place] 07/05/24 at 1300, For 1 dose, If oral and IV narcotics ordered, use oral first and only use IV if oral is ineffective or cannot take oral. Do Not give oral and IV within 1 hour of each other unless specifically ordered. 1 ml naloxone hydrochloride 0.4 mg/ml injection (4 sources) Opioid Antagonist Start: 07-05-2024 End: 07-07-2024 0.4 mg, IntraVENous, As needed, opioid reversal, pinpoint pupils, Starting on Tue07/05/24 at 0540, administer IV PRN for oversedation, RR LESS than 10 Start: 04-04-2024 End: 04-13-2024 0.4 mg, IntraVENous, Every 5 min PRN, opioid reversal, respiratory depression, Starting on Tue04/04/24 at 2028, +++ For RR 2 ml ondansetron 2 mg/ml injection (12 sources) Serotonin-3 Receptor Antagonist Start: 08-03-2024 End: 08-03-2024 4 mg, IntraVENous, Once, On Tue08/03/24 at 0245, For 1 dose Start: 07-17-2024 take 4 mg intravenou sly every six hours as needed ondansetron, PF, (ZOFRAN) 4 mg/2 mL soln Inject 4 mg intravenously every 6 hours as needed. 07/17/2024 Active Start: 07-05-2024 End: 07-05-2024 4 mg, IntraVENous, Once, On [place] 07/05/24 at 0450, For 1 dose Start: 07-05-2024 End: 07-05-2024 4 mg, IntraVENous, Once, On [place] 07/05/24 at 0450, For 1 dose ondansetron (Zof ran) 4 MG tablet Take by mouth. Active ondansetron ODT (Zofran-ODT) disintegrating tablet 4 mg (6 sources) Start: 08-03-2024 End: 08-16-2024 take 1 tablet by mouth every eight hours as needed for nausea and vomiting ondansetron ODT (Zofran-ODT) disintegrating tablet 4 mg Start: 07-05-2024 End: 07-07-2024 take 1 tablet by mouth every eight hours as needed for nausea and vomiting ondansetron ODT (Zofran-ODT) disintegrating tablet 4 mg Start: 04-04-2024 End: 04-13-2024 take 1 tablet by mouth every eight hours as needed for nausea and vomiting ondansetron ODT (Zofran-ODT) disintegrating tablet 4 mg oxyCODONE hydrochloride 5 mg oral tablet (9 sources) Opioid Agonist Start: 07-05-2024 End: 07-07-2024 take 1 tablet by mouth every six hours as needed for pain and pain 5 mg, Oral, Every 6 hours PRN, severe pain (7-10), moderate pain (4-6), Starting on [facility] 07/05/24 at 1444 Start: 04-13-2024 End: 04-18-2024 take 1 tablet by mouth every six hours as needed for pain oxyCODONE (Roxicodone) 5 MG immediate release tablet Indications: Right leg pain , Peripheral arterial disease (HCC) Take 1 tablet (5 mg) by mouth every 6 hours as needed for severe pain (7-10) for up to 5 days. 12 tablet 04/13/2024 04/18/2024 Active Start: 04-05-2024 End: 04-13-2024 take 1 tablet by mouth every four hours as needed for pain oxyCODONE (Roxicodone) immediate release tablet 2.5 mg pantoprazole 40 mg delayed release oral tablet (20 sources) Proton Pump Inhibitor Start: 07-18-2023 End: 07-05-2024 take 1 tablet by mouth once daily before breakfast pantoprazole (ProtoNix) 40 MG EC tablet Take 40 mg by mouth every morning (before breakfast). 07/18/2023 07/05/2024 Discontinued (Entered in error) Start: 06-28-2022 End: 07-29-2022 take 1 tablet by mouth twice daily before mealtime pantoprazole DR (PROTONIX) 40 mg tablet Take 1 tablet by mouth twice daily before meals (0600/1600). 60 tablet 06/29/2022 4:23 PM EST 06/28/2022 Active Comment on above: Take 1 tablet by [facility] [place] twice daily before meals (0600/1600). prochlorperazine 5 mg/ml injectable solution (2 sources) Phenothiazine Start: 2023 End: 2023 take 5 mg intravenously every six hours as needed for nausea and vomiting 5 mg, IntraVENous, Every 6 hours PRN, nausea, vomiting, Starting on [place] 07/05/24 at 1444 1 ml promethazine hydrochloride 25 mg/ml injection (2 sources) Phenothiazine Start: 2024 End: 2024 inject 25 mg by intramuscular injection once 25 mg, IntraMUSCular, Once, On Tue08/03/24 at 0400, For 1 dose, Only to be given as IM injection. 10 ml sodium bicarbonate 42 mg/ml prefilled syringe (1 source) Start: 2019 End: 2019 sodium bicarbonate 4.2 % injection 3 mEq 5 ml sodium chloride 9 mg/ml injection (20 sources) Start: 2024 End: 2024 take 50 mL intravenously every hour 50 mL/hr, IntraVENous, Continuous, Starting on [place] 11/22/24 at 0830, Preprocedure, Upon admission to sameday - please start iv if patient does not have iv access. Start: 11-22-2024 End: 11-22-2024 take 100 mL intravenously every hour as needed, then take 20 mL intravenously every hour as needed 5-250 mL/hr, IntraVENous, PRN, if patient receiving piggyback infusions and maintenance fluids are not ordered OR KVO fluids to protect IV site / prevent frequent line interruptions / long duration, Starting on [place] 11/22/24 at 0815, Preprocedure, For piggyback infusion, administer at same rate as piggyback for a total of 25 mL. Enter 25 mL into dose field and piggyback rate into rate field of order. If piggyback is infusing at a rate less than 100 mL/hr, enter 25 mL into dose field and 100 mL/hr into rate field of order. For KVO fluids, enter rate of 20 mL/hr or less into rate field of order. Start: 11-22-2024 End: 11-22-2024 5-40 mL, IntraVENous, PRN, l ine care, After every IV line use, Starting on [place] 11/22/24 at 0815, Preprocedure, For Line Patency: Peripheral IV = 5 mL; Midline or Central Line = 10 mL/lumen. If following IV push medication, administer flush at same rate as the IV push. Flush volume is determined by type of infusion therapy being given. For non-viscous solutions use: Peripheral IV = 5 mL Midline or Central Line = 10 mL/lumen For viscous solutions (i.e. blood components, parenteral nutrition, contrast media, or after obtaining blood sample) use: Peripheral IV = 10 mL Midline or Central Line = 20 mL/lumen Start: 11-22-2024 End: 11-22-2024 take 5-40 mL intravenously every twelve hours 5-40 mL, IntraVENous, Every 12 hours, First dose on [place] 11/22/24 at 0830, Preprocedure, For Line Patency: Peripheral IV = 5 mL; Midline or Central Line = 10 mL/lumen. If following IV push medication, administer flush at same rate as the IV push. Flush volume is determined by type of infusion therapy being given. For non-viscous solutions use: Peripheral IV = 5 mL Midline or Central Line = 10 mL/lumen For viscous solutions (i.e. blood components, parenteral nutrition, contrast media, or after obtaining blood sample) use: Peripheral IV = 10 mL Midline or Central Line = 20 mL/lumen Start: 08-03-2024 End: 08-14-2024 take 100 mL intravenously every hour 100 mL/hr, IntraVENous, Continuous, Starting on Tue08/03/24 at 1030, On hold since Tue08/10/2024 at 2058 until manually unheld Start: 07-05-2024 End: 07-05-2024 250 mL, IntraVENous, at 250 mL/hr, Administer over 1 Hours, Once, On [place] 07/05/24 at 0430, For 1 dose Start: 07-05-2024 End: 12-21-2024 take 50 mL intravenously every hour 50 mL/hr, IntraVENous, Continuous, Starting on [place] 07/05/24 at 0430 Start: 07-05-2024 End: 07-07-2024 take 5-40 mL intravenously every twelve hours 5-40 mL, IntraVENous, Every 12 hours, First dose on [place] 07/05/24 at 0430, For Line Patency: Peripheral IV = 5 mL; Midline or Central Line = 10 mL/lumen. If following IV push medication, administer flush at same rate as the IV push. Flush volume is determined by type of infusion therapy being given. For non-viscous solutions use: Peripheral IV = 5 mL Midline or Central Line = 10 mL/lumen For viscous solutions (i.e. blood components, parenteral nutrition, contrast media, or after obtaining blood sample) use: Peripheral IV = 10 mL Midline or Central Line = 20 mL/lumen Start: 07-05-2024 End: 07-07-2024 take 100 mL intravenously every hour as needed, then take 20 mL intravenously every hour as needed 5-250 mL/hr, IntraVENous, PRN, if patient receiving piggyback infusions and maintenance fluids are not ordered OR KVO fluids to protect IV site / prevent frequent line interruptions / long duration, Starting on Maida 07/05/24 at 0427, For piggyback infusion, administer at same rate as piggyback for a total of 25 mL. Enter 25 mL into dose field and piggyback rate into rate field of order. If piggyback is infusing at a rate less than 100 mL/hr, enter 25 mL into dose field and 100 mL/hr into rate field of order. For KVO fluids, enter rate of 20 mL/hr or less into rate field of order. Start: 07-05-2024 End: 07-07-2024 5-40 mL, IntraVENous, PRN, l ine care, After every IV line use, Starting on Maida 07/05/24 at 0427, For Line Patency: Peripheral IV = 5 mL; Midline or Central Line = 10 mL/lumen. If following IV push medication, administer flush at same rate as the IV push. Flush volume is determined by type of infusion therapy being given. For non-viscous solutions use: Peripheral IV = 5 mL Midline or Central Line = 10 mL/lumen For viscous solutions (i.e. blood components, parenteral nutrition, contrast media, or after obtaining blood sample) use: Peripheral IV = 10 mL Midline or Central Line = 20 mL/lumen Start: 04-03-2024 End: 04-03-2024 500 mL, IntraVENous, at 500 mL/hr, Administer over 1 Hours, Once, On Tue04/03/24 at 1955, For 1 dose Start: 04-03-2024 End: 04-09-2024 take 125 mL intravenously every hour 125 mL/hr, IntraVENous, Continuous, Starting on Tue04/03/24 at 1820 sodium zirconium cyclosilicate 08619 mg powder for oral suspension (2 sources) Start: 04-04-2024 End: 04-04-2024 10 g, Oral, Once, On Tue04/04/24 at 0600, For 1 dose, Empty entire contents of packet(s) into 45 mL water. Stir well and administer immediately. If powder remains, rinse glass with water and administer. 12 hr timolol 5 mg/ml ophthalmic solution (20 sources) beta-Adrenergic Essie Start: 09-05-2024 End: 10-01-2024 timolol maleate (TIMOPTIC) 0.5 % ophthalmic solution Use 1 Drop in the right eye every morning. 5 mL 1 09/05/2024 10/01/2024 Discontinued (Course of therapy completed) Start: 08-03-2024 End: 08-16-2024 take 1 drop(s) into the eye(s) twice daily 1 drop, Right Eye, 2 times daily, First dose on Tue08/03/24 at 1100 Start: 07-06-2024 End: 07-06-2025 take 1 drop(s) into the eye(s) twice daily timolol (Timoptic) 0.5 % ophthalmic solution Administer 1 drop into the right eye 2 times daily. 07/06/2024 07/06/2025 Active Start: 07-05-2024 End: 07-07-2024 take 1 drop(s) into the eye(s) twice daily 1 drop, Right Eye, 2 times daily, First dose on Maida 07/05/24 at 1355 10 actuat tiotropium 0.0025 mg/actuat inhalation spray (6 sources) Anticholinergic Start: 08-03-2024 End: 08-16-2024 take 2 puff(s) by inhalation once daily 2 puff, Inhalation, Daily, First dose on Tue08/03/24 at 1030 Start: 07-05-2024 End: 07-07-2024 take 2 puff(s) by inhalation once daily 2 puff, Inhalation, Daily, First dose on Maida 07/05/24 at 1615 Start: 04-04-2024 End: 04-10-2024 take 2 puff(s) by inhalation once daily 2 puff, Inhalation, Daily, First dose on Tue04/04/24 at 0900 warfarin sodium 5 mg oral tablet (20 sources) Vitamin K Antagonist Start: 06-01-2024 End: 07-05-2024 warfarin (Coumadin) 5 MG tablet Indications: Deep vein thrombosis (DVT) of lower extremity, unspecified chronicity, unspecified laterality, unspecified vein (HCC) , Atrial fibrillation, unspecified type (HCC) , Acute venous embolism and thrombosis of deep vessels of proximal end of right lower extremity (HCC) Take as directed by [facility] (90 tablets = 90 day supply). Current dose: 5 mg daily. 90 tablet 06/01/2024 07/05/2024 Discontinued (Entered in error) Start: 04-13-2024 End: 04-27-2024 warfarin (Coumadin) 5 MG tab let Indications: Deep vein thrombosis (DVT) of lower extremity, unspecified chronicity, unspecified laterality, unspecified vein (HCC) , Atrial fibrillation, unspecified type (HCC) , Acute venous embolism and thrombosis of deep vessels of proximal end of right lower extremity (HCC) Take as directed by [facility] (45 tablets= 30 day supply) 45 tablet 1 04/27/2024 Active Start: 04-09-2024 7.5 mg, Oral, Once Warfarin, On Maida 04/12/24 at 1700, For 1 dose Start: 04-07-2024 warfarin (Coum jay jay) 5 MG tablet Take 1 tablet (5mg) on 04/13 in the evening Take 1.5 tablets (7.5mg) on 04/14 Take 1 tablet (5mg) on 04/15 Follow up with [facility] pharmacy for further dosing 30 tablet 04/13/2024 Active Start: 04-04-2024 2.5 mg, Oral, Once Warfarin, On Tue04/06/24 at 1700, For 1 dose End: 05-14-2022 take 1 tablet by mouth once daily warfarin (COUMADIN) 5 mg ORAL Tab 1 tab po daily 0 05/14/2022 Discontinued Comment on above: 1 tab po daily Problems Active Problems Problem Classification Problem Date Documented Da te Episodic/Chronic Acute cerebrovascular disease (20 sources) Embolic stroke; Translations: [Cerebral infarction, unspecified] Onset: 4 06-11-2024 Chronic Blindness and vision defects (20 sources) Visual impairment; Translations: [Unqualified visual loss, right eye, normal vision left eye] Onset: 4 07-05-2024 Chronic Blindness and vision defects (2 sources) Unqualified visual loss, right eye, normal vision left eye; Translations: [Unqualified visual loss, right eye, normal vision left eye] Onset: 4 Chronic Cancer of bone and connective tissue (1 source) Lipoma of left lower limb; Translations: [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, including hip] 07-27-2023 Chronic Cardiac dysrhythmias (20 sources) Atrial fibrillation; Translations: [Unspecified atrial fibrillation] Onset: 0 03-07-2020 Chronic Cataract (7 sources) Pseudophakia of right eye; Translations: [Presence of intraocular lens] Onset: 4 07-14-2024 Chronic Chronic kidney disease (20 sources) Chronic kidney disease stage 3; Translations: [Chronic renal insufficiency, stage III (moderate)] Onset: 0 03-07-2020 Chronic Chronic kidney disease (2 sources) Chronic kidney disease; Translations: [Chronic kidney disease, stage 3 unspecified (HCC)] Onset: 2 Chronic obstructive pulmonary disease and bronchiectasis (20 sources) Chronic obstructive lung disease; Translations: [Chronic obstructive pulmonary disease, unspecified] Onset: 0 03-07-2020 Chronic Chronic ulcer of skin (9 sources) Non-pressure chronic ulcer of other part of right foot limited to breakdown of skin; Translations: [Ulcer of other part of foot] Onset: 5 11-06-2024 Chronic Coagulation and hemorrhagic disorders (20 sources) Thrombophilia; Translations: [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] Onset: 4 07-27-2023 Chronic Diseases of mouth; excluding dental (2 sources) Acute bacterial sialadenitis; Translations: [Acute sialoadenitis] Episodic Disorders of lipid metabolism (20 sources) Pure hypercholesterolemia; Translations: [Pure hypercholesterolemia, unspecified] Onset: 0 03-07-2020 Chronic Esophageal disorders (20 sources) Gastroesophageal reflux disease without esophagitis; Translations: [Gastroesophageal reflux disease] Onset: 0 03-07-2020 Chronic Essential hypertension (20 sources) Essential hypertension; Translations: [Essential (primary) hypertension] Onset: 0 03-07-2020 Chronic Glaucoma (8 sources) Acute angle-closure glaucoma of right eye; Translations: [Acute angle-closure glaucoma, right eye] Onset: 4 07-14-2024 Chronic Headache; including migraine (2 sources) Acute headache; Translations: [Acute intractable headache, unspecified headache type] 07-05-2024 Episodic Headache; including migraine (2 sources) Headache; including migraine; Translations: [Headache, unspecified] Onset: 4 Immunity disorders (20 sources) Secondary immune deficiency disorder; Translations: [Immunodeficiency due to conditions classified elsewhere] Onset: 4 07-27-2023 Chronic Infective arthritis and osteomyelitis (except that caused by tuberculosis or sexually transmitted disease) (20 sources) Osteomyelitis of finger of right hand; Translations: [Osteomyelitis, unspecified] Onset: 0 05-02-2022 Chronic Infective arthritis and osteomyelitis (except that caused by tuberculosis or sexually transmitted disease) (3 sources) Osteomyelitis of finger of right hand; Translations: [Finger osteomyelitis, right] Onset: 0 03-06-2020 Mood disorders (20 sources) 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; Translations: [Major depressive disorder, single episode, in full remission] Onset: 0 03-07-2020 Chronic Other aftercare (8 sources) Surgical follow-up; Translations: [Encounter for surgical aftercare following surgery on the circulatory system] 12-05-2024 Episodic Other aftercare (2 sources) Encounter for surgical aftercare following surgery on the circulatory system; Translations: [Encounter for surgical aftercare following surgery on the circulatory system] Onset: 05-29-202 5 Episodic Other aftercare (3 sources) 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; Translations: [prison (current) use of anticoagulants] Onset: 2 Episodic Other and ill-defined heart disease (2 sources) Other ill-defined heart diseases; Translations: [Other ill-defined heart diseases] Onset: 4 Chronic Other bone disease and musculoskeletal deformities (1 source) History of amputation of finger; Translations: [S/P surgical amputation of finger, right] Episodic Other connective tissue disease (3 sources) Disorder of soft tissue; Translations: [Other specified soft tissue disorders] 05-24-2023 Episodic Other connective tissue disease (3 sources) Pain in left lower limb; Translations: [Pain in left leg] 06-15-2023 Episodic Other connective tissue disease (2 sources) Pain in right lower limb; Translations: [Pain in right leg] 04-03-2024 Episodic Other eye disorders (12 sources) Hemorrhagic choroidal detachment, right eye; Translations: [Hemorrhagic choroidal detachment] Onset: 4 07-07-2024 Chronic Other eye disorders (5 sources) Subluxation of lens of right eye; Translations: [Subluxation of lens, right eye] 07-14-2024 Chronic Other eye disorders (1 source) Subluxation of lens, right eye; Translations: [Subluxation of right lens] Onset: 4 Chronic Other gastrointestinal disorders (20 sources) Irritable bowel syndrome with diarrhea; Translations: [Irritable bowel syndrome with diarrhea] Onset: 0 03-07-2020 Chronic Other gastrointestinal disorders (1 source) Irritable bowel syndrome with diarrhea; Translations: [Irritable bowel syndrome with diarrhea] Onset: 5 Chronic Other inflammatory condition of skin (20 sources) Psoriasis; Translations: [Psoriasis, unspecified] Onset: 0 03-07-2020 Chronic Other nutritional; endocrine; and metabolic disorders (1 source) Overweight; Translations: [Overweight] Onset: 0 03-07-2020 Chronic Other screening for suspected conditions (not mental disorders or infectious disease) (3 sources) Radiology result abnormal; Translations: [Abnormal findings on diagnostic imaging of other specified body structures] 06-15-2023 Chronic Other skin disorders (6 sources) Finding of neck region; Translations: [Localized swelling, mass and lump, neck] 02-22-2023 Episodic Other upper respiratory disease (20 sources) Seasonal allergy; Translations: [Other seasonal allergic rhinitis] Onset: 0 03-07-2020 Chronic Peripheral and visceral atherosclerosis (20 sources) Unspecified atherosclerosis; Translations: [Peripheral vascular disease, unspecified] Onset: 2 04-13-2024 Chronic Residual codes; unclassified (1 source) Swelling of salivary gland; Translations: [Localized edema] Episodic Residual codes; unclassified (1 source) Tobacco use; Translations: [Tobacco abuse] Onset: 2 Episodic Residual codes; unclassified (6 sources) Postoperative state; Translations: [Other specified postprocedural states] 07-14-2024 Episodic Retinal detachments; defects; vascular occlusion; and retinopathy (20 sources) Detachment of retina of left eye; Translations: [Serous retinal detachment, left eye] Onset: 0 05-02-2022 Episodic Retinal detachments; defects; vascular occlusion; and retinopathy (1 source) Detachment of retina of left eye; Translations: [Left retinal detachment] Onset: 0 03-07-2020 Substance-related disorders (20 sources) Nicotine dependence; Translations: [Nicotine dependence, unspecified, uncomplicated] Onset: 2 05-18-2022 Chronic Thyroid disorders (20 sources) Hypothyroidism, unspecified; Translations: [Hypothyroidism] Onset: 2 06-16-2022 Chronic Viral infection (1 source) COVID-19; Translations: [COVID-19] Onset: 2 Past or Other Problems Problem Classification Problem Date Documented Da te Episodic/Chronic Acute and unspecified renal failure (4 sources) Acute renal failure syndrome; Translations: [Acute kidney failure, unspecified] Onset: 5 08-03-2024 Episodic Aspiration pneumonitis; food/vomitus (20 sources) Aspiration pneumonitis; Translations: [Pneumonitis due to inhalation of food and vomit] Onset: 5 08-03-2024 Episodic Blindness and vision defects (20 sources) Subjective visual disturbance; Translations: [Unspecified subjective visual disturbances] Onset: 4 07-06-2024 Episodic Complication of device; implant or graft (3 sources) Dislocated intraocular lens; Translations: [Displacement of intraocular lens, initial encounter] Onset: 4 07-07-2024 Episodic Conditions associated with dizziness or vertigo (15 sources) Dizziness; Translations: [Dizziness and giddiness] Onset: 4 06-19-2024 Episodic Diabetes mellitus without complication (20 sources) Hyperglycemia; Translations: [Hyperglycemia, unspecified] Onset: 0 03-07-2020 Episodic Genitourinary symptoms and ill-defined conditions (20 sources) Microscopic hematuria; Translations: [Other microscopic hematuria] Onset: 0 03-07-2020 Episodic Nausea and vomiting (19 sources) Vomiting; Translations: [Vomiting, unspecified] Onset: 4 Resolved: 4 06-19-2024 Episodic Other aftercare (20 sources) Long-term current use of anticoagulant; Translations: [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] Onset: 0 03-07-2020 Episodic Other aftercare (1 source) Other superintendent [employer] (current) drug therapy; Translations: [Other superintendent [employer] (current) drug therapy] Onset: 5 Episodic Other bone disease and musculoskeletal deformities (20 sources) Osteopenia; Translations: [Other specified disorders of bone density and structure, left thigh] Onset: 0 03-07-2020 Episodic Other circulatory disease (20 sources) History of cerebrovascular accident; Translations: [Personal history of transient ischemic attack (TIA), and cerebral infarction without residual deficits] Onset: 0 03-07-2020 Episodic Other circulatory disease (3 sources) Other disorder of circulatory system; Translations: [Ischemic leg] Onset: 2 Episodic Other circulatory disease (20 sources) Lower limb ischemia; Translations: [Other disorder of circulatory system] Onset: 2 06-16-2022 Episodic Other connective tissue disease (4 sources) Other symptoms and signs involving the musculoskeletal system; Translations: [Other musculoskeletal symptoms referable to limbs] Onset: 4 04-03-2024 Episodic Other connective tissue disease (2 sources) Pain in right leg; Translations: [Pain in right leg] Onset: 4 Episodic Other diseases of kidney and ureters (14 sources) Bilateral hydronephrosis ; Translations: [Unspecified hydronephrosis] Onset: 4 06-19-2024 Episodic Other diseases of kidney and ureters (14 sources) Kidney lesion; Translations: [Disorder of kidney and ureter, unspecified] Onset: 4 06-19-2024 Episodic Other gastrointestinal disorders (2 sources) Diarrhea, unspecified; Translations: [Diarrhea, unspecified] Onset: 5 Episodic Other nutritional; endocrine; and metabolic disorders (20 sources) Overweight; Translations: [Overweight] Onset: 0 05-02-2022 Episodic Other screening for suspected conditions (not mental disorders or infectious disease) (2 sources) Abnormal findings on diagnostic imaging of heart and coronary circulation; Translations: [Abnormal findings on diagnostic imaging of heart and coronary circulation] Onset: 4 Episodic Phlebitis; thrombophlebitis and thromboembolism (20 sources) Acute embolism and thrombosis of unspecified deep veins of left proximal lower extremity; Translations: [Phlebitis and thrombophlebitis of unspecified deep vessels of left lower extremity] Onset: 2 06-16-2022 Episodic Pneumonia (except that caused by tuberculosis or sexually transmitted disease) (20 sources) Pneumonia, unspecified organism; Translations: [Bilateral pneumonia] Onset: 2 06-16-2022 Episodic Residual codes; unclassified (16 sources) Tobacco user; Translations: [Tobacco use] Onset: 2 06-16-2022 Episodic Residual codes; unclassified (1 source) Other specified postprocedural states; Translations: [Postoperative eye state] Onset: 4 Episodic Residual codes; unclassified (1 source) Altered mental status, unspecified; Translations: [Altered mental status, unspecified] Onset: 5 Episodic Skin and subcutaneous tissue infections (20 sources) Infection of finger; Translations: [Cellulitis] Onset: 2 05-18-2022 Episodic Unclassified (3 sources) Skin ulcer of toe of right foot, limited to breakdown of skin ([facility]) 12-05-2024 Unclassified (4 sources) PAD (peripheral artery disease) ([facility]) 12-05-2024 Viral infection (20 sources) Disease caused by 2019-nCoV; Translations: [COVID-19] Onset: 2 06-16-2022 Episodic Results Test Name Value Interpretation Reference Range Facility Prothrombin Time w/INRon INR Coag (PPP) [Relative time] 2.8 {INR} Normal [facility] Comment on above: Order Comment: 104-1 Performed By: #### L 300.3900 #### [facility] [address] [place], [address] PT Coag (PPP) [Time] 30.5 s High 11.7-14.9 [facility] Comment on above: Order Comment: 104-1 Performed By: #### L 300.3900 #### [facility] [address] [place], [address] Prothrombin Time w/INRon INR Coag (PPP) [Relative time] 2.5 {INR} Normal [facility] Comment on above: Order Comment: 104.1 Performed By: #### L 100.0500, L500.4050 #### [facility] [address] [place], [address] PT Coag (PPP) [Time] 27.1 s High 11.7-14.9 [facility] Comment on above: Order Comment: 104.1 Performed By: #### L 100.0500, [id number] #### [facility] [address] [place], [address] Prothrombin Time w/INRon INR Coag (PPP) [Relative time] 2.4 {INR} Normal [facility] Comment on above: Order Comment: DID Kareem MENDELDIANAKONRAD TWICE, BOTH TIMES GOT A 'NO CLOT DETECTED'MESSAGE, SO VA A VENOUS SAMPLE. SPOKE WITH NURSE TINEO Performed By: #### L 100.0500, [id number] #### [facility] [address] [place], [address] PT Coag (PPP) [Time] 26.9 s High 11.7-14.9 [facility] Comment on above: Order Comment: DID Kareem STRANGE TWICE, BOTH TIMES GOT A 'NO CLOT DETECTED'MESSAGE, SO VA A VENOUS SAMPLE. SPOKE WITH NURSE TINEO Performed By: #### L 100.0500, [id number] #### [facility] [address] [place], [address] Protime w/INR Fingerstickon 01-17-2025 INR Coag (PPP) [Relative time] 1.9 {INR} Normal [facility] Comment on above: Result Comment: Crit ical Value > 4.0 Performed By: #### L 9200.0000 #### [facility] [address] [place], [address] Protime Coagsen 20.8 SEC High 11.7-14.9 [facility] Comment on above: Performed By: #### L 9200.0000 #### [facility] [address] [place], [address] Protime w/INR Fingerstickon 01-16-2025 INR Coag (PPP) [Relative time] 1.5 {INR} Normal [facility] Comment on above: Result Comment: Crit ical Value > 4.0 Performed By: #### L 100.0500, [id number] #### [facility] [address] [place], [address] Protime Coagsen 17.2 SEC High 11.7-14.9 [facility] Comment on above: Performed By: #### L 100.0500, [id number] #### [facility] [address] [place], [address] Prothrombin Time w/INRon INR Coag (PPP) [Relative time] 1.2 {INR} Normal [facility] Comment on above: Performed By: #### L 300.3900 #### [facility] [address] [place], [address] PT Coag (PPP) [Time] 15.4 s High 11.7-14.9 [facility] Comment on above: Performed By: #### L 300.3900 #### [facility] [address] [place], [address] 36on 01-08-2025 36 Normal [facility] Basic Metabolic Profile (BMP )on 01-07-2025 BUN/CRE 17.7 RATIO Normal 10-20 [facility] Comment on above: Order Comment: 104.1 Performed By: #### L 100.0500, [id number] #### [facility] [address] [place], [address] Calcium [Mass/Vol] 9.1 mg/dL Normal 7.6-11.0 [facility] Comment on above: Order Comment: 104.1 Performed By: #### L 100.0500, [id number] #### [facility] [address] [place], [address] Chloride [Moles/Vol] 109 mmol/L High 98-108 [facility] Comment on above: Order Comment: 104.1 Performed By: #### L 100.0500, [id number] #### [facility] [address] [place], [address] CO2 [Moles/Vol] 19.7 mmol/L Low 21.0-32.0 [facility] Comment on above: Order Comment: 104.1 Performed By: #### L 100.0500, [id number] #### [facility] [address] [place], [address] Creatinine [Mass/Vol] 1.15 mg/dL Normal 0.70-1.20 [facility] Comment on above: Order Comment: 104.1 Performed By: #### L 100.0500, [id number] #### [facility] [address] [place], [address] GAP 10 Normal 5-15 [facility] Comment on above: Order Comment: 104.1 Performed By: #### L 100.0500, [id number] #### [facility] [address] [place], [address] GFR/1.73 sq M.predicted among non-blacks MDRD (S/P/Bld) [Vol rate/Area] 47 mL/min/{1.73_m2} Low >60 [facility] Comment on above: Order Comment: 104.1 Result Comment: mL/m in/1.73m2 CKD-EPI Creatinine Equation (2020) Performed By: #### L 100.0500, [id number] #### [facility] [address] [place], [address] Glucose [Mass/Vol] 87 mg/dL Normal 70-99 [facility] Comment on above: Order Comment: 104.1 Performed By: #### L 100.0500, [id number] #### [facility] [address] [place], [address] Potassium [Moles/Vol] 5.0 mmol/L Normal 3.3-5.1 [facility] Comment on above: Order Comment: 104.1 Performed By: #### L 100.0500, [id number] #### [facility] [address] [place], [address] Sodium [Moles/Vol] 138 mmol/L Normal 133-145 [facility] Comment on above: Order Comment: 104.1 Performed By: #### L 100.0500, [id number] #### [facility] [address] [place], [address] Urea nitrogen [Mass/Vol] 20 mg/dL High 4-19 [facility] Comment on above: Order Comment: 104.1 Performed By: #### L 100.0500, [id number] #### [facility] [address] [place], [address] CBC-Complete Blood Cnt No Di ffon 01-07-2025 Erythrocyte distribution width (RBC) [Ratio] 16.5 % High 11.6-14.6 [facility] Comment on above: Order Comment: 104.1 Performed By: #### L 100.0500, [id number] #### [facility] [address] [place], [address] Hematocrit (Bld) [Volume fraction] 30.4 % Low 37-47 [facility] Comment on above: Order Comment: 104.1 Performed By: #### L 100.0500, L500.4050 #### [facility] [address] [place], [address] Hemoglobin (Bld) [Mass/Vol] 9.8 g/dL Low 12.0-15.0 [facility] Comment on above: Order Comment: 104.1 Performed By: #### L 100.0500, L500.4050 #### [facility] [address] [place], [address] MCH (RBC) [Entitic mass] 29.9 pg Normal 27.0-32.0 [facility] Comment on above: Order Comment: 104.1 Performed By: #### L 100.0500, L500.4050 #### [facility] [address] [place], [address] MCHC (RBC) [Mass/Vol] 32.2 g/dL Normal 32-36 [facility] Comment on above: Order Comment: 104.1 Performed By: #### L 100.0500, L500.4050 #### [facility] [address] [place], [address] MCV (RBC) [Entitic vol] 92.7 fL Normal 81-99 [facility] Comment on above: Order Comment: 104.1 Performed By: #### L 100.0500, L500.4050 #### [facility] [address] [place], [address] Platelet mean volume (Bld) [Entitic vol] 10.0 fL Normal 6.2-12.0 [facility] Comment on above: Order Comment: 104.1 Performed By: #### L 100.0500, L500.4050 #### [facility] [address] [place], [address] Platelets (Bld) [#/Vol] 254 10*3/uL Normal 150-450 [facility] Comment on above: Order Comment: 104.1 Performed By: #### L 100.0500, L500.4050 #### [facility] [address] [place], [address] RBC (Bld) [#/Vol] 3.28 10*6/uL Low 4.2-5.4 [facility] Comment on above: Order Comment: 104.1 Performed By: #### L 100.0500, L500.4050 #### [facility] [address] [place], [address] RDW SD 55.9 fl High 35.1-43.9 [facility] Comment on above: Order Comment: 104.1 Performed By: #### L 100.0500, L500.4050 #### [facility] [address] [place], [address] WBC (Bld) [#/Vol] 4.5 10*3/uL Normal 4.4-11.0 [facility] Comment on above: Order Comment: 104.1 Performed By: #### L 100.0500, L500.4050 #### [facility] [address] [place], [address] 36on 01-04-2025 36 Normal [facility] 36 Normal [facility] Progress Noteon 12-24-2024 Progress Note Normal [facility] No Panel Informationon 12-13 Left MICHELLE 0.71 [facility] Left arm BP 121 mmHg [facility] Left Dist Outflow EDV 6.5 cm/s [facility] Left Dist Outflow PSV 51.5 cm/s [facility] Left dorsalis pedis BP 67 mmHg [facility] Left Graft 1 Proximal Popliteal Stent [facility] Left Inflow Artery EDV 8.5 cm/s [facility] Left Inflow Artery PSV 46.5 cm/s [facility] Left Mid Outflow EDV 6.5 cm/s [facility] Left Mid Outflow PSV 58.1 cm/s [facility] Left Outflow Vessel EDV 9.8 cm/s [facility] Left Outflow Vessel PSV 89.9 cm/s [facility] Left posterior tibial 94 mmHg [facility] Left Prox Outflow EDV 6.5 cm/s [facility] Left Prox Outflow PSV 51.5 cm/s [facility] Right MICHELLE 0.96 [facility] Right arm BP 133 mmHg [facility] Right YARITZA dist PSV 53.6 cm/s [facility] Right PARTS COUNTER REPRESENTATIVE dist PSV 144.6 cm/s [facility] Right PARTS COUNTER REPRESENTATIVE mid AP diameter 0.92 cm [facility] Right PARTS COUNTER REPRESENTATIVE mid TR diameter 0.89 cm [facility] Right PARTS COUNTER REPRESENTATIVE prox PSV 133.7 cm/s [facility] Right Dist Outflow EDV 0 cm/s [facility] Right Dist Outflow PSV 45.3 cm/s [facility] Right dorsalis pedis BP 107 mmHg [facility] Right EIA dist PSV 144.6 cm/s [facility] Right Graft 1 Distal SFA Stent [facility] Right Inflow Artery EDV 4.6 cm/s [facility] Right Inflow Artery PSV 100.7 cm/s [facility] Right Mid Outflow EDV 2.3 cm/s [facility] Right Mid Outflow PSV 66.2 cm/s [facility] Right Outflow Vessel EDV 2.3 cm/s [facility] Right Outflow Vessel PSV 56.4 cm/s [facility] Right PFA AP diameter 0.59 cm [facility] Right PFA TR diameter 0.73 cm [facility] Right Pop A dist PSV 157.6 cm/s [facility] Right Pop A mid PSV 89.9 cm/s [facility] Right popliteal artery mid AP diameter 0.52 cm [facility] Right popliteal artery mid TR diameter 0.6 cm [facility] Right posterior tibial 128 mmHg [facility] Right Prox Outflow EDV 0 cm/s [facility] Right Prox Outflow PSV 68.6 cm/s [facility] Right MANAGER DIGITAL AD OPERATIONS dist PSV 48.1 cm/s [facility] Right SFA dist PSV 100.7 cm/s [facility] Right SFA distal AP diameter 0.71 cm [facility] Right SFA distal TR diameter 0.71 cm [facility] Right SFA mid AP diameter 0.68 cm [facility] Right SFA mid PSV 261 cm/s [facility] Right SFA mid TR diameter 0.69 cm [facility] Right SFA prox PSV 81.7 cm/s [facility] Right SFA proximal AP diameter 0.55 cm [facility] Right SFA proximal TR diameter 0.61 cm [facility] Stents in SFA and popliteal artery are patent without evidence of stenosis. Middle Superficial Femoral Artery: >50% stenosis. Right side findings: Resting MICHELLE is 0.96. This is within the normal range. Left side findings: Resting MICHELLE is 0.71. This is moderately decreased. Study Details A george scale, color Doppler imaging and spectral Doppler analysis ultrasound was performed. During the study 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 and transverse views were obtained. Pulsed wave doppler was performed. The exam was performed with the patient in the supine position. Overall the study quality was adequate. Right Lower Arterial Common Femoral Artery: Mild heterogeneous plaque. Profunda Artery: Mild plaque. Proximal Superficial Femoral Artery: Mild plaque. Middle Superficial Femoral Artery: >50% stenosis. Distal Superficial Femoral Artery: Patent. Proximal Popliteal Artery: Patent. Distal Popliteal Artery: Mild plaque. Anterior Tibial Artery: Patent. Posterior Tibial Artery: Patent. Peroneal Artery: Not visualized. Stent location: Distal SFA. Patent segments - inflow, proximal, mid, distal and outflow. Stent in proximal popliteal artery is patent without evidence of stenosis MICHELLE Right side findings: Normal resting MICHELLE. Left side findings: Moderately decreased resting MICHELLE. 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 Left PVR waveforms: Consistent with MODERATE disease - ankle. CV CPACS Progress Noteon 12-05-2024 Progress Note Normal [facility] 36on 11-23-2024 36 Normal [facility] 36 Normal [facility] 36 Normal [facility] [id number] 11-22-2024 [id number] Normal [facility] Anesthesia Noteon 11-22-2024 Anesthesia Note Normal [facility] No Panel Informationon 11-22 There is no interpretation needed for this exam. IMAGING Nursing Noteon 11-22-2024 Nursing Note Patient arrived on unit. Name and date verified. Attached to monitors. Vital signs stable. Normal [facility] Op Noteon 11-22-2024 Op Note Normal [facility] Progress Noteon 11-22-2024 Progress Note POA called to bedsid e and discharge instructions reviewed. Groin site remains intact and LE distal pulses unchanged via assessment with doppler. Transportation called for leaf size picker Normal [facility] Progress Note POA given updated vi a phone call. Made aware of patient's orders to lay flat until 1325. Daughter in law stated that she will call care facility later to make arrangements for transportation back. Normal [facility] Anesthesia Noteon 11-21-2024 Anesthesia Note Normal [facility] Basic Metabolic Profile (BMP )on 11-15-2024 BUN/CRE 18.3 RATIO Normal 10-20 [facility] Comment on above: Order Comment: 104-1 Performed By: #### L 300.3900 #### [facility] [address] [place], [address] Calcium [Mass/Vol] 9.0 mg/dL Normal 7.6-11.0 [facility] Comment on above: Order Comment: 104-1 Performed By: #### L 300.3900 #### [facility] [address] [place], [address] Chloride [Moles/Vol] 108 mmol/L Normal 98-108 [facility] Comment on above: Order Comment: 104-1 Performed By: #### L 300.3900 #### [facility] [address] [place], [address] CO2 [Moles/Vol] 22.1 mmol/L Normal 21.0-32.0 [facility] Comment on above: Order Comment: 104-1 Performed By: #### L 300.3900 #### [facility] [address] [place], [address] Creatinine [Mass/Vol] 1.03 mg/dL Normal 0.70-1.20 [facility] Comment on above: Order Comment: 104-1 Performed By: #### L 300.3900 #### [facility] [address] [place], [address] GAP 9 Normal 5-15 [facility] Comment on above: Order Comment: 104-1 Performed By: #### L 300.3900 #### [facility] [address] [place], [address] GFR/1.73 sq M.predicted among non-blacks MDRD (S/P/Bld) [Vol rate/Area] 53 mL/min/{1.73_m2} Low >60 [facility] Comment on above: Order Comment: 104- Result Comment: mL/m in/1.73m2 CKD-EPI Creatinine Equation (2020) Performed By: #### L 300.3900 #### [facility] [address] [place], [address] Glucose [Mass/Vol] 91 mg/dL Normal 70-99 [facility] Comment on above: Order Comment: 104-1 Performed By: #### L 300.3900 #### [facility] [address] [place], [address] Potassium [Moles/Vol] 4.8 mmol/L Normal 3.3-5.1 [facility] Comment on above: Order Comment: 104-1 Performed By: #### L 300.3900 #### [facility] [address] [place], [address] Sodium [Moles/Vol] 138 mmol/L Normal 133-145 [facility] Comment on above: Order Comment: 104-1 Performed By: #### L 300.3900 #### [facility] [address] [place], [address] Urea nitrogen [Mass/Vol] 19 mg/dL Normal 4-19 [facility] Comment on above: Order Comment: 104-1 Performed By: #### L 300.3900 #### [facility] [address] [place], [address] CBC W/Diff, Automatedon 05-0 1-202 Absolute Lymph 1.77 X10 3/uL Normal 0.83-4.51 [facility] Comment on above: Order Comment: 104-1 Performed By: #### L 100.0500, L500.4050 #### [facility] [address] [place], [address] Absolute Neut 3.2 X10 3/uL Normal 2.0-7.7 [facility] Comment on above: Order Comment: 104-1 Performed By: #### L 100.0500, L500.4050 #### [facility] [address] [place], [address] Basophils/100 WBC (Bld) 0.7 % Normal 0-1 [facility] Comment on above: Order Comment: 104-1 Performed By: #### L 100.0500, L500.4050 #### [facility] [address] [place], [address] Eosinophils/100 WBC (Bld) 2.9 % Normal 0-5 [facility] Comment on above: Order Comment: 104-1 Performed By: #### L 100.0500, L500.4050 #### [facility] [address] [place], [address] Erythrocyte distribution width (RBC) [Ratio] 18.8 % High 11.6-14.6 [facility] Comment on above: Order Comment: 104-1 Performed By: #### L 100.0500, L500.4050 #### [facility] [address] [place], [address] Hematocrit (Bld) [Volume fraction] 30.9 % Low 37-47 [facility] Comment on above: Order Comment: 104-1 Performed By: #### L 100.0500, L500.4050 #### [facility] [address] [place], [address] Hemoglobin (Bld) [Mass/Vol] 9.8 g/dL Low 12.0-15.0 [facility] Comment on above: Order Comment: 104-1 Performed By: #### L 100.0500, L500.4050 #### [facility] [address] [place], [address] IG% 0.200 Normal 0.0-0.9 [facility] Comment on above: Order Comment: 104-1 Result Comment: IG% - Immature Granulocytes (promyelocytes, myelocytes and metamyelocytes) > 1% indicates that a LEFT SHIFT is Present. Performed By: #### L 100.0500, L500.4050 #### [facility] [address] [place], [address] Lymphocytes/100 WBC (Bld) 30.3 % Normal 19-41 [facility] Comment on above: Order Comment: 104-1 Performed By: #### L 100.0500, L500.4050 #### [facility] [address] [place], [address] MCH (RBC) [Entitic mass] 28.4 pg Normal 27.0-32.0 [facility] Comment on above: Order Comment: 104-1 Performed By: #### L 100.0500, L500.4050 #### [facility] [address] [place], [address] MCHC (RBC) [Mass/Vol] 31.7 g/dL Low 32-36 [facility] Comment on above: Order Comment: 104-1 Performed By: #### L 100.0500, L500.4050 #### [facility] [address] [place], [address] MCV (RBC) [Entitic vol] 89.6 fL Normal 81-99 [facility] Comment on above: Order Comment: 104-1 Performed By: #### L 100.0500, L500.4050 #### [facility] [address] [place], [address] Monocytes/100 WBC (Bld) 11.3 % High 0-10 [facility] Comment on above: Order Comment: 104-1 Performed By: #### L 100.0500, L500.4050 #### [facility] [address] [place], [address] Neutrophils/100 WBC (Bld) 54.6 % Normal 47-70 [facility] Comment on above: Order Comment: 104-1 Performed By: #### L 100.0500, L500.4050 #### [facility] [address] [place], [address] Nucleated RBC (Bld) [#/Vol] 0 10*3/uL Normal 0-5 [facility] Comment on above: Order Comment: 104-1 Performed By: #### L 100.0500, L500.4050 #### [facility] [address] [place], [address] Platelet mean volume (Bld) [Entitic vol] 10.2 fL Normal 6.2-12.0 [facility] Comment on above: Order Comment: 104-1 Performed By: #### L 100.0500, L500.4050 #### [facility] [address] [place], [address] Platelets (Bld) [#/Vol] 303 10*3/uL Normal 150-450 [facility] Comment on above: Order Comment: 104-1 Performed By: #### L 100.0500, L500.4050 #### [facility] [address] [place], [address] RBC (Bld) [#/Vol] 3.45 10*6/uL Low 4.2-5.4 [facility] Comment on above: Order Comment: 104-1 Performed By: #### L 100.0500, L500.4050 #### [facility] [address] [place], [address] RDW SD 61.8 fl High 35.1-43.9 [facility] Comment on above: Order Comment: 104-1 Performed By: #### L 100.0500, L500.4050 #### [facility] [address] [place], [address] WBC (Bld) [#/Vol] 5.8 10*3/uL Normal 4.4-11.0 [facility] Comment on above: Order Comment: 104-1 Performed By: #### L 100.0500, L500.4050 #### [facility] [address] [place], [address] 36on 11-14-2024 36 Normal [facility] 36on 11-08-2024 36 Fidel called to state that she spoke with Mel and she would like to proceed with angio. Normal [facility] Progress Noteon 11-05-2024 Progress Note Normal [facility] Anion gap in Serum or Plasma Ordered By: Megan Montoya on 10-08-2024 Anion gap [Moles/Vol] 12 mmol/L 11-29 [facility] BUN/creatinine ratioOrdered By: Megan Montoya on 10-08-2024 Urea nitrogen/Creatinine [Mass ratio] 16.5 mg/mg - [facility] Basic Metabolic Profile (BMP )on 10-08-2024 BUN/CRE 16.5 RATIO Normal 05-06 [facility] Comment on above: Order Comment: 104.1 Performed By: #### L 100.0500, L500.4050 #### [facility] [address] [place], [address] Calcium [Mass/Vol] 9.0 mg/dL Normal 7.6-11.0 [facility] Comment on above: Order Comment: 104.1 Performed By: #### L 100.0500, L500.4050 #### [facility] [address] [place], [address] Chloride [Moles/Vol] 106 mmol/L Normal 98-108 [facility] Comment on above: Order Comment: 104.1 Performed By: #### L 100.0500, L500.4050 #### [facility] [address] [place], [address] CO2 [Moles/Vol] 20.0 mmol/L Low 21.0-32.0 [facility] Comment on above: Order Comment: 104.1 Performed By: #### L 100.0500, L500.4050 #### [facility] [address] [place], [address] Creatinine [Mass/Vol] 1.05 mg/dL Normal 0.70-1.20 [facility] Comment on above: Order Comment: 104.1 Performed By: #### L 100.0500, L500.4050 #### [facility] [address] [place], [address] GAP 12 Normal 5-15 [facility] Comment on above: Order Comment: 104.1 Performed By: #### L 100.0500, L500.4050 #### [facility] [address] [place], [address] GFR/1.73 sq M.predicted among non-blacks MDRD (S/P/Bld) [Vol rate/Area] 52 mL/min/{1.73_m2} Low >60 [facility] Comment on above: Order Comment: 104.1 Result Comment: mL/m in/1.73m2 CKD-EPI Creatinine Equation (2020) Performed By: #### L 100.0500, L500.4050 #### [facility] [address] [place], [address] Glucose [Mass/Vol] 98 mg/dL Normal 70-99 [facility] Comment on above: Order Comment: 104.1 Performed By: #### L 100.0500, L500.4050 #### [facility] [address] [place], [address] Potassium [Moles/Vol] 4.3 mmol/L Normal 3.3-5.1 [facility] Comment on above: Order Comment: 104.1 Result Comment: Hemo lysis present, Results??could be affected. ?? Performed By: #### L 100.0500, L500.4050 #### [facility] [address] [place], [address] Sodium [Moles/Vol] 137 mmol/L Normal 133-145 [facility] Comment on above: Order Comment: 104.1 Performed By: #### L 100.0500, L500.4050 #### [facility] [address] [place], [address] Urea nitrogen [Mass/Vol] 17 mg/dL Normal 4-19 [facility] Comment on above: Order Comment: 104.1 Performed By: #### L 100.0500, L500.4050 #### [facility] [address] [place], [address] CBC-Complete Blood Cnt No Di ffon 10-08-2024 Erythrocyte distribution width (RBC) [Ratio] 17.5 % High 11.6-14.6 [facility] Comment on above: Order Comment: 104.1 Performed By: #### L 100.0500, L500.4050 #### [facility] [address] [place], [address] Hematocrit (Bld) [Volume fraction] 30.4 % Low 37-47 [facility] Comment on above: Order Comment: 104.1 Performed By: #### L 100.0500, L500.4050 #### [facility] [address] [place], [address] Hemoglobin (Bld) [Mass/Vol] 9.6 g/dL Low 12.0-15.0 [facility] Comment on above: Order Comment: 104.1 Performed By: #### L 100.0500, L500.4050 #### [facility] [address] [place], [address] MCH (RBC) [Entitic mass] 27.4 pg Normal 27.0-32.0 [facility] Comment on above: Order Comment: 104.1 Performed By: #### L 100.0500, L500.4050 #### [facility] [address] [place], [address] MCHC (RBC) [Mass/Vol] 31.6 g/dL Low 32-36 [facility] Comment on above: Order Comment: 104.1 Performed By: #### L 100.0500, L500.4050 #### [facility] [address] [place], [address] MCV (RBC) [Entitic vol] 86.9 fL Normal 81-99 [facility] Comment on above: Order Comment: 104.1 Performed By: #### L 100.0500, L500.4050 #### [facility] [address] [place], [address] Platelet mean volume (Bld) [Entitic vol] 10.3 fL Normal 6.2-12.0 [facility] Comment on above: Order Comment: 104.1 Performed By: #### L 100.0500, L500.4050 #### [facility] [address] [place], [address] Platelets (Bld) [#/Vol] 408 10*3/uL Normal 150-450 [facility] Comment on above: Order Comment: 104.1 Performed By: #### L 100.0500, L500.4050 #### [facility] [address] [place], [address] RBC (Bld) [#/Vol] 3.50 10*6/uL Low 4.2-5.4 [facility] Comment on above: Order Comment: 104.1 Performed By: #### L 100.0500, L500.4050 #### [facility] [address] [place], [address] RDW SD 56.2 fl High 35.1-43.9 [facility] Comment on above: Order Comment: 104.1 Performed By: #### L 100.0500, L500.4050 #### [facility] [address] [place], [address] WBC (Bld) [#/Vol] 6.4 10*3/uL Normal 4.4-11.0 [facility] Comment on above: Order Comment: 104.1 Performed By: #### L 100.0500, L500.4050 #### [facility] [address] [place], [address] Carbon dioxide, total [Moles /volume] in Central venous bloodOrdered By: Megan Montoya on 10-08-2024 CO2 [Moles/Vol] 20.0 mmol/L Low 21.0-32.0 [facility] Chloride assayOrdered By: Johnathan Guzman on 10-08-2024 Chloride [Moles/Vol] 106 mmol/L 98-108 [facility] Erythrocyte distribution wid th ratioOrdered By: Megan Montoya on 10-08-2024 Erythrocyte distribution width (RBC) [Ratio] 17.5 % High 11.6-14.6 [facility] Erythrocyte distribution wid th standard deviationOrdered By: Megan Montoya on 10-08-2024 Erythrocyte distribution width (RBC) [Entitic vol] 56.2 fL High 35.1-43.9 [facility] GFR/1.73 sq M.predicted gricelda g non-blacks MDRD (S/P/Bld) [Vol rate/Area]Ordered By: Megan Montoya on 10-08-2024 Estimated GFR (MDRD) Non-Af Amer 52 Low >60 [facility] Comment on above: mL/min/1.73m2 CKD-EP I Creatinine Equation (2020) Hematocrit Auto (Bld) [Volum e fraction]Ordered By: Megan Montoya on 10-08-2024 Hematocrit (Bld) [Volume fraction] 30.4 % Low 37-47 [facility] Hemoglobin measurementOrdere d By: Megan Montoya on 10-08-2024 Hemoglobin (Bld) [Mass/Vol] 9.6 g/dL Low 12.0-15.0 [facility] [facility] MCV (mean corpuscular volume ) determinationOrdered By: Megan Montoya on 10-08-2024 MCV (RBC) [Entitic vol] 86.9 fL 81-99 [facility] Mean corpuscular hemoglobin (MCH) determinationOrdered By: Megan Montoya on 10-08-2024 MCH (RBC) [Entitic mass] 27.4 pg 27.0-32.0 [facility] Mean corpuscular hemoglobin concentration (MCHC) determinationOrdered By: Megan Montoya on 10-08-2024 MCHC (RBC) [Mass/Vol] 31.6 g/dL Low 32-36 [facility] Mean platelet volume determi nationOrdered By: Megan Montoya on 10-08-2024 Platelet mean volume (Bld) [Entitic vol] 10.3 fL 6.2-12.0 [facility] Platelet countOrdered By: Johnathan Guzman on 10-08-2024 Platelets (Bld) [#/Vol] 408 10*3/uL 150-450 [facility] Potassium (Unsp spec) [Mass/ Vol]Ordered By: Megan Montoya on 10-08-2024 Potassium [Moles/Vol] 4.3 mmol/L 3.3-5.1 [facility] Comment on above: Hemolysis present, R esults could be affected. RBC Auto (Bld) [#/Vol]Ordere d By: Megan Montoya on 10-08-2024 RBC (Bld) [#/Vol] 3.50 10*6/uL Low 4.2-5.4 [facility] Serum creatinine measurement (mass/volume)Ordered By: Megan Montoya on 10-08-2024 Creatinine [Mass/Vol] 1.05 mg/dL 0.70-1.20 [facility] Serum glucose measurement (m ass/volume)Ordered By: Megan Montoya on 10-08-2024 Glucose [Mass/Vol] 98 mg/dL 70-99 [facility] Serum or plasma calcium reyna urement (mass/volume)Ordered By: Megan Montoya on 10-08-2024 Calcium [Mass/Vol] 9.0 mg/dL 7.6-11.0 [facility] Serum or plasma urea nitroge n measurement (mass/volume)Ordered By: Megan Montoya on 10-08-2024 Urea nitrogen [Mass/Vol] 17 mg/dL 4-19 [facility] Sodium levelOrdered By: Juan C Montoya on 10-08-2024 Sodium [Moles/Vol] 137 mmol/L 133-145 [facility] White blood cell (WBC) count Ordered By: Megan Montoya on 10-08-2024 WBC (Bld) [#/Vol] 6.4 10*3/uL 4.4-11.0 [facility] BSCAN OD (RIGHT EYE)on 10-01 [facility] Radiology [facility] BUN/creatinine ratioOrdered By: Megan Montoya on 09-17-2024 Urea nitrogen/Creatinine [Mass ratio] 15.7 mg/mg 10-20 [facility] Basic Metabolic Profile (BMP )on 09-17-2024 Anion gap [Moles/Vol] 10 mmol/L Normal 5-15 [facility] Comment on above: Order Comment: 104.1 Performed By: #### L 500.2500 #### [facility] [address] [place], [address] BUN/CRE 15.7 RATIO Normal 10-20 [facility] Comment on above: Order Comment: 104.1 Performed By: #### L 500.2500 #### [facility] [address] [place], [address] Calcium [Mass/Vol] 9.0 mg/dL Normal 7.6-11.0 [facility] Comment on above: Order Comment: 104.1 Performed By: #### L 500.2500 #### [facility] [address] [place], [address] Chloride [Moles/Vol] 108 mmol/L Normal 96-108 [facility] Comment on above: Order Comment: 104.1 Performed By: #### L 500.2500 #### [facility] [address] [place], [address] CO2 [Moles/Vol] 21.6 mmol/L Low 22.0-29.0 [facility] Comment on above: Order Comment: 104.1 Performed By: #### L 500.2500 #### [facility] [address] [place], [address] Creatinine [Mass/Vol] 1.03 mg/dL Normal 0.70-1.20 [facility] Comment on above: Order Comment: 104.1 Performed By: #### L 500.2500 #### [facility] [address] [place], [address] GFR/1.73 sq M.predicted among non-blacks MDRD (S/P/Bld) [Vol rate/Area] 54 mL/min/{1.73_m2} Low >60 [facility] Comment on above: Order Comment: 104.1 Result Comment: mL/m in/1.73m2 CKD-EPI Creatinine Equation (2020) Performed By: #### L 500.2500 #### [facility] [address] [place], [address] Glucose [Mass/Vol] 90 mg/dL Normal 70-99 [facility] Comment on above: Order Comment: 104.1 Performed By: #### L 500.2500 #### [facility] [address] [place], [address] Potassium [Moles/Vol] 4.5 mmol/L Normal 3.3-5.1 [facility] Comment on above: Order Comment: 104.1 Performed By: #### L 500.2500 #### [facility] [address] [place], [address] Sodium [Moles/Vol] 140 mmol/L Normal 133-145 [facility] Comment on above: Order Comment: 104.1 Performed By: #### L 500.2500 #### [facility] [address] [place], [address] Urea nitrogen [Mass/Vol] 16 mg/dL Normal 4-19 [facility] Comment on above: Order Comment: 104.1 Performed By: #### L 500.2500 #### [facility] [address] [place], [address] Carbon dioxide measurementOr dered By: Megan Montoya on 09-17-2024 CO2 [Moles/Vol] 21.6 mmol/L Low 22.0-29.0 [facility] Chloride measurementOrdered By: Megan Montoya on 09-17-2024 Chloride [Moles/Vol] 108 mmol/L 96-108 [facility] GFR/1.73 sq M.predicted gricelda g non-blacks MDRD (S/P/Bld) [Vol rate/Area]Ordered By: Megan Montoya on 09-17-2024 Estimated GFR (MDRD) Non-Af Amer 54 Low >60 [facility] Comment on above: mL/min/1.73m2 CKD-EP I Creatinine Equation (2020) Serum creatinine measurement (mass/volume)Ordered By: Megan Montoya on 09-17-2024 Creatinine [Mass/Vol] 1.03 mg/dL 0.70-1.20 [facility] Serum glucose measurement (m ass/volume)Ordered By: Megan Montoya on 09-17-2024 Glucose [Mass/Vol] 90 mg/dL 70-99 [facility] Serum or plasma anion gap de termination (moles/volume)Ordered By: Megan Montoya on 09-17-2024 Anion gap [Moles/Vol] 10 mmol/L 5-15 [facility] Serum or plasma calcium reyna urement (mass/volume)Ordered By: Megan Montoya on 09-17-2024 Calcium [Mass/Vol] 9.0 mg/dL 7.6-11.0 [facility] Serum or plasma potassium me asurementOrdered By: Megan Montoya on 09-17-2024 Potassium [Moles/Vol] 4.5 mmol/L 3.3-5.1 [facility] Serum or plasma sodium measu rement (moles/volume)Ordered By: Megan Montoya on 09-17-2024 Sodium [Moles/Vol] 140 mmol/L 133-145 [facility] Serum or plasma urea nitroge n measurement (mass/volume)Ordered By: Megan Montoya on 09-17-2024 Urea nitrogen [Mass/Vol] 16 mg/dL 4-19 [facility] Basic Metabolic Profile (BMP )on 09-10-2024 BUN/CRE 17.9 RATIO Normal 10-20 [facility] Comment on above: Order Comment: 104.1 Performed By: #### L 100.0500, L500.2500 #### [facility] [address] [place], [address] CA,Total 9.0 mg/dL Normal 8.5-10.1 [facility] Comment on above: Order Comment: 104.1 Performed By: #### L 100.0500, L500.2500 #### [facility] [address] [place], [address] Chloride [Moles/Vol] 108 mmol/L High 98-107 [facility] Comment on above: Order Comment: 104.1 Performed By: #### L 100.0500, L500.2500 #### [facility] [address] [place], [address] CO2 [Moles/Vol] 24.0 mmol/L Normal 21.0-32.0 [facility] Comment on above: Order Comment: 104.1 Performed By: #### L 100.0500, L500.2500 #### [facility] [address] [place], [address] Creatinine [Mass/Vol] 1.23 mg/dL High 0.55-1.02 [facility] Comment on above: Order Comment: 104.1 Result Comment: The validity of the calculated GFR GFRAA in patients over 70 years has not been determined. Clinical correlation is essential. Performed By: #### L 100.0500, L500.2500 #### [facility] [address] [place], [address] EST GFR - AA 53 mL/min Low >60 [facility] Comment on above: Order Comment: 104.1 Result Comment: Afri can Bangladeshi GFR Calc Performed By: #### L 100.0500, L500.2500 #### [facility] [address] [place], [address] GAP 5 Normal 5-15 [facility] Comment on above: Order Comment: 104.1 Performed By: #### L 100.0500, L500.2500 #### [facility] [address] [place], [address] GFR/1.73 sq M.predicted among non-blacks MDRD (S/P/Bld) [Vol rate/Area] 44 mL/min/{1.73_m2} Low >60 [facility] Comment on above: Order Comment: 104.1 Result Comment: Non- GFR Calc Performed By: #### L 100.0500, L500.2500 #### [facility] [address] [place], [address] Glucose [Mass/Vol] 98 mg/dL Normal 74-106 [facility] Comment on above: Order Comment: 104.1 Performed By: #### L 100.0500, L500.2500 #### [facility] [address] [place], [address] Potassium [Moles/Vol] 4.5 mmol/L Normal 3.5-5.1 [facility] Comment on above: Order Comment: 104.1 Performed By: #### L 100.0500, L500.2500 #### [facility] [address] [place], [address] Sodium [Moles/Vol] 137 mmol/L Normal 136-145 [facility] Comment on above: Order Comment: 104.1 Performed By: #### L 100.0500, L500.2500 #### [facility] [address] [place], [address] Urea nitrogen [Mass/Vol] 22 mg/dL High 7-18 [facility] Comment on above: Order Comment: 104.1 Performed By: #### L 100.0500, L500.2500 #### [facility] [address] [place], [address] Blood urea nitrogen (BUN)/cr eatinine ratioOrdered By: Megan Montoya on 09-10-2024 Urea nitrogen/Creatinine [Mass ratio] 17.9 mg/mg 10-20 [facility] CBC-Complete Blood Cnt No Di ffon 09-10-2024 Erythrocyte distribution width (RBC) [Ratio] 17.8 % High 11.6-14.6 [facility] Comment on above: Order Comment: 104.1 Performed By: #### L 100.0500, L500.2500 #### [facility] [address] [place], [address] Hematocrit (Bld) [Volume fraction] 31.9 % Low 37-47 [facility] Comment on above: Order Comment: 104.1 Performed By: #### L 100.0500, L500.2500 #### [facility] [address] [place], [address] Hemoglobin (Bld) [Mass/Vol] 9.7 g/dL Low 12.0-15.0 [facility] Comment on above: Order Comment: 104.1 Performed By: #### L 100.0500, L500.2500 #### [facility] [address] [place], [address] MCH (RBC) [Entitic mass] 26.1 pg Low 27.0-32.0 [facility] Comment on above: Order Comment: 104.1 Performed By: #### L 100.0500, L500.2500 #### [facility] [address] [place], [address] MCHC (RBC) [Mass/Vol] 30.4 g/dL Low 32-36 [facility] Comment on above: Order Comment: 104.1 Performed By: #### L 100.0500, L500.2500 #### [facility] [address] [place], [address] MCV (RBC) [Entitic vol] 85.8 fL Normal 81-99 [facility] Comment on above: Order Comment: 104.1 Performed By: #### L 100.0500, L500.2500 #### [facility] [address] [place], [address] Platelet mean volume (Bld) [Entitic vol] 9.5 fL Normal 6.2-12.0 [facility] Comment on above: Order Comment: 104.1 Performed By: #### L 100.0500, L500.2500 #### [facility] [address] [place], [address] Platelets (Bld) [#/Vol] 485 10*3/uL High 150-450 [facility] Comment on above: Order Comment: 104.1 Performed By: #### L 100.0500, L500.2500 #### [facility] [address] [place], [address] RBC (Bld) [#/Vol] 3.72 10*6/uL Low 4.2-5.4 [facility] Comment on above: Order Comment: 104.1 Performed By: #### L 100.0500, L500.2500 #### [facility] [address] [place], [address] RDW SD 55.2 fl High 35.1-43.9 [facility] Comment on above: Order Comment: 104.1 Performed By: #### L 100.0500, L500.2500 #### [facility] [address] [place], [address] WBC (Bld) [#/Vol] 7.7 10*3/uL Normal 4.4-11.0 [facility] Comment on above: Order Comment: 104.1 Performed By: #### L 100.0500, L500.2500 #### [facility] [address] [place], [address] Carbon dioxide measurementOr dered By: Megan Montoya on 09-10-2024 CO2 [Moles/Vol] 24.0 mmol/L 21.0-32.0 [facility] Chloride measurementOrdered By: Megan Montoya on 09-10-2024 Chloride [Moles/Vol] 108 mmol/L High 98-107 [facility] Erythrocyte distribution wid th ratioOrdered By: Megan Montoya on 09-10-2024 Erythrocyte distribution width (RBC) [Ratio] 17.8 % High 11.6-14.6 [facility] Erythrocyte distribution wid th standard deviationOrdered By: Megan Montoya on 09-10-2024 Erythrocyte distribution width (RBC) [Entitic vol] 55.2 fL High 35.1-43.9 [facility] Estimated glomerular filtrat ion rate (GFR) AmericanOrdered By: Megan Montoya on 09-10-2024 Estimated GFR (MDRD) Amer 53 mL/min Low >60 [facility] Comment on above: GFR Calc Glomerular filtration rate ( GFR) estimationOrdered By: Megan Montoya on 09-10-2024 Estimated GFR (MDRD) Non-Af Amer 44 mL/min Low >60 [facility] Comment on above: Non- GFR Calc Glucose measurementOrdered B y: Megan Montoya on 09-10-2024 Glucose [Mass/Vol] 98 mg/dL 74-106 [facility] Hematocrit Auto (Bld) [Volum e fraction]Ordered By: Megan Montoya on 09-10-2024 Hematocrit (Bld) [Volume fraction] 31.9 % Low 37-47 [facility] Hemoglobin measurementOrdere d By: Megan Montoya on 09-10-2024 Hemoglobin (Bld) [Mass/Vol] 9.7 g/dL Low 12.0-15.0 [facility] MCV (mean corpuscular volume ) determinationOrdered By: Megan Montoya on 09-10-2024 MCV (RBC) [Entitic vol] 85.8 fL 81-99 [facility] Mean corpuscular hemoglobin (MCH) determinationOrdered By: Megan Montoya on 09-10-2024 MCH (RBC) [Entitic mass] 26.1 pg Low 27.0-32.0 [facility] Mean corpuscular hemoglobin concentration (MCHC) determinationOrdered By: Megan Montoya on 09-10-2024 MCHC (RBC) [Mass/Vol] 30.4 g/dL Low 32-36 [facility] Mean platelet volume determi nationOrdered By: Megan Montoya on 09-10-2024 Platelet mean volume (Bld) [Entitic vol] 9.5 fL 6.2-12.0 [facility] Platelet countOrdered By: Johnathan Guzman on 09-10-2024 Platelets (Bld) [#/Vol] 485 10*3/uL High 150-450 [facility] Potassium measurementOrdered By: Megan Montoya on 09-10-2024 Potassium [Moles/Vol] 4.5 mmol/L 3.5-5.1 [facility] RBC Auto (Bld) [#/Vol]Ordere d By: Megan Montoya on 02-24-2025 RBC (Bld) [#/Vol] 3.72 10*6/uL Low 4.2-5.4 [facility] Serum anion gap measurementO rdered By: Megan Montoya on 09-10-2024 Anion gap [Moles/Vol] 5 mmol/L 5-15 [facility] Serum or plasma calcium reyna urement (mass/volume)Ordered By: Megan Montoya on 09-10-2024 Calcium [Mass/Vol] 9.0 mg/dL 8.5-10.1 [facility] Serum or plasma creatinine m easurement (mass/volume)Ordered By: Megan Montoya on 09-10-2024 Creatinine [Mass/Vol] 1.23 mg/dL High 0.55-1.02 [facility] Comment on above: The validity of the calculated GFR & GFRAA in patients over 70 years has not been determined. Clinical correlation is essential. Serum or plasma urea nitroge n measurement (mass/volume)Ordered By: Megan Montoya on 09-10-2024 Urea nitrogen [Mass/Vol] 22 mg/dL High 7-18 [facility] Sodium levelOrdered By: Juan C Montoya on 09-10-2024 Sodium [Moles/Vol] 137 mmol/L 136-145 [facility] White blood cell (WBC) count Ordered By: Megan Montoya on 09-10-2024 WBC (Bld) [#/Vol] 7.7 10*3/uL 4.4-11.0 [facility] Urine Cultureon 09-06-2024 URC UNKNOWN METHOD OF COLLECTION Proteus mirabilis [place] Count 50,000-80,000 Klebsiella pneumoniae sp pneum Klebsiella pneumoniae sp pneum Proteus mirabilis: REACTION Ampicillin Islt AGATA <=2 S Ampicillin+Sulbac Islt AGATA <=2 Cefepime Islt AGATA <=0.12 S cefTRIAXone Islt AGATA <=0.25 S Ciprofloxacin Islt AGATA <=0.06 S Gentamicin Islt AGATA <=1 S levoFLOXacin Islt AGATA <=0.12 S Meropenem Islt AGATA <=0.25 S Nitrofurantoin Islt AGATA 128 R Pip+Tazo Islt AGATA <=4 S TMP SMX Islt AGATA <=20 S Klebsiella pneumoniae sp pneum: REACTION Ampicillin Islt AGATA R Ampicillin+Sulbac Islt AGATA <=2 Cefepime Islt AGATA <=0.12 S cefTRIAXone Islt AGATA <=0.25 S Ciprofloxacin Islt AGATA <=0.06 S B-Lactamase Extended Susc Islt NEG Gentamicin Islt AGATA <=1 S levoFLOXacin Islt AGATA <=0.12 S Meropenem Islt AGATA <=0.25 S Nitrofurantoin Islt AGATA 32 S Pip+Tazo Islt AGATA <=4 S TMP SMX Islt AGATA <=20 S Normal [facility] Comment on above: Performed By: #### M 100.2200, L400.0001 #### [facility] [address] [place], [address] Urinalysis, Completeon 09-04 BACTERIA 4+ /hpf Normal None Seen [facility] Comment on above: Order Comment: UNKNO WN METHOD OF COLLECTION CLEAN CATCH Performed By: #### M 100.2200, L400.0001 #### [facility] [address] [place], [address] EPI,SQUAMOUS 10-25 SEEN Normal 5-10 [facility] Comment on above: Order Comment: UNKNO WN METHOD OF COLLECTION CLEAN CATCH Performed By: #### M 100.2200, L400.0001 #### [facility] [address] [place], [address] Mucus Ql (Urine sed) 1+ /hpf Normal [facility] Comment on above: Order Comment: UNKNO WN METHOD OF COLLECTION CLEAN CATCH Performed By: #### M 100.2200, L400.0001 #### [facility] [address] [place], [address] RBC 5-10 SEEN Normal 0-5 [facility] Comment on above: Order Comment: UNKNO WN METHOD OF COLLECTION CLEAN CATCH Performed By: #### M 100.2200, L400.0001 #### [facility] [address] [place], [address] WBC 50-100 SEEN Normal 0-5 [facility] Comment on above: Order Comment: UNKNO WN METHOD OF COLLECTION CLEAN CATCH Performed By: #### M 100.2200, L400.0001 #### [facility] [address] [place], [address] Basic Metabolic Profile (BMP )on 09-03-2024 BUN/CRE 20.7 RATIO High 10-20 [facility] Comment on above: Order Comment: 104-1 Performed By: #### L 100.0500, L500.4050 #### [facility] [address] [place], [address] CA,Total 9.4 mg/dL Normal 8.5-10.1 [facility] Comment on above: Order Comment: 104-1 Performed By: #### L 100.0500, L500.4050 #### [facility] [address] [place], [address] Chloride [Moles/Vol] 109 mmol/L High 98-107 [facility] Comment on above: Order Comment: 104-1 Performed By: #### L 100.0500, L500.4050 #### [facility] [address] [place], [address] CO2 [Moles/Vol] 21.0 mmol/L Normal 21.0-32.0 [facility] Comment on above: Order Comment: 104-1 Performed By: #### L 100.0500, L500.4050 #### [facility] [address] [place], [address] Creatinine [Mass/Vol] 0.92 mg/dL Normal 0.55-1.02 [facility] Comment on above: Order Comment: 104-1 Result Comment: The validity of the calculated GFR GFRAA in patients over 70 years has not been determined. Clinical correlation is essential. Performed By: #### L 100.0500, L500.4050 #### [facility] [address] [place], [address] EST GFR - AA 75 mL/min Normal >60 [facility] Comment on above: Order Comment: 104-1 Result Comment: Afri can Banglades[place] GFR Calc Performed By: #### L 100.0500, L500.4050 #### [facility] [address] [place], [address] GAP 9 Normal 5-15 [facility] Comment on above: Order Comment: 104-1 Performed By: #### L 100.0500, L500.4050 #### [facility] [address] [place], [address] GFR/1.73 sq M.predicted among non-blacks MDRD (S/P/Bld) [Vol rate/Area] 62 mL/min/{1.73_m2} Normal >60 [facility] Comment on above: Order Comment: 104-1 Result Comment: Non- GFR Calc Performed By: #### L 100.0500, L500.4050 #### [facility] [address] [place], [address] Glucose [Mass/Vol] 115 mg/dL High 74-106 [facility] Comment on above: Order Comment: 104-1 Result Comment: Fast ing Glucose result from 100 to 125 mg/dL suggests IMPAIRED HOMEOSTASIS per A.D.A. criteria. Performed By: #### L 100.0500, L500.4050 #### [facility] [address] [place], [address] Potassium [Moles/Vol] 4.4 mmol/L Normal 3.5-5.1 [facility] Comment on above: Order Comment: 104-1 Performed By: #### L 100.0500, L500.4050 #### [facility] [address] [place], [address] Sodium [Moles/Vol] 139 mmol/L Normal 136-145 [facility] Comment on above: Order Comment: 104-1 Performed By: #### L 100.0500, L500.4050 #### [facility] [address] [place], [address] Urea nitrogen [Mass/Vol] 19 mg/dL High 7-18 [facility] Comment on above: Order Comment: 104-1 Performed By: #### L 100.0500, L500.4050 #### [facility] [address] [place], [address] Bilirubin Test strip Ql (U)O rdered By: Megan Montoya on 09-03-2024 Bilirubin Ql (U) Negative Negative [facility] Blood urea nitrogen (BUN)/cr eatinine ratioOrdered By: Megan Montoya on 09-03-2024 Urea nitrogen/Creatinine [Mass ratio] 20.7 mg/mg High 10-20 [facility] CBC-Complete Blood Cnt No Di ffon 09-03-2024 Erythrocyte distribution width (RBC) [Ratio] 17.9 % High 11.6-14.6 [facility] Comment on above: Order Comment: 104-1 Performed By: #### L 100.0500, L500.4050 #### [facility] [address] [place], [address] Hematocrit (Bld) [Volume fraction] 30.8 % Low 37-47 [facility] Comment on above: Order Comment: 104-1 Performed By: #### L 100.0500, L500.4050 #### [facility] [address] [place], [address] Hemoglobin (Bld) [Mass/Vol] 9.5 g/dL Low 12.0-15.0 [facility] Comment on above: Order Comment: 104-1 Performed By: #### L 100.0500, L500.4050 #### [facility] [address] [place], [address] MCH (RBC) [Entitic mass] 25.7 pg Low 27.0-32.0 [facility] Comment on above: Order Comment: 104-1 Performed By: #### L 100.0500, L500.4050 #### [facility] [address] [place], [address] MCHC (RBC) [Mass/Vol] 30.8 g/dL Low 32-36 [facility] Comment on above: Order Comment: 104-1 Performed By: #### L 100.0500, L500.4050 #### [facility] [address] [place], [address] MCV (RBC) [Entitic vol] 83.5 fL Normal 81-99 [facility] Comment on above: Order Comment: 104-1 Performed By: #### L 100.0500, L500.4050 #### [facility] [address] [place], [address] Platelet mean volume (Bld) [Entitic vol] 10.2 fL Normal 6.2-12.0 [facility] Comment on above: Order Comment: 104-1 Performed By: #### L 100.0500, L500.4050 #### [facility] [address] [place], [address] Platelets (Bld) [#/Vol] 431 10*3/uL Normal 150-450 [facility] Comment on above: Order Comment: 104-1 Performed By: #### L 100.0500, L500.4050 #### [facility] [address] [place], [address] RBC (Bld) [#/Vol] 3.69 10*6/uL Low 4.2-5.4 [facility] Comment on above: Order Comment: 104-1 Performed By: #### L 100.0500, L500.4050 #### [facility] [address] [place], [address] RDW SD 54.3 fl High 35.1-43.9 [facility] Comment on above: Order Comment: 104-1 Performed By: #### L 100.0500, L500.4050 #### [facility] [address] [place], [address] WBC (Bld) [#/Vol] 10.6 10*3/uL Normal 4.4-11.0 [facility] Comment on above: Order Comment: 104-1 Performed By: #### L 100.0500, L500.4050 #### [facility] [address] [place], [address] Carbon dioxide measurementOr dered By: Megan Montoya on 09-03-2024 CO2 [Moles/Vol] 21.0 mmol/L 21.0-32.0 [facility] Chloride measurementOrdered By: Megan Montoya on 09-03-2024 Chloride [Moles/Vol] 109 mmol/L High 98-107 [facility] Epithelial cells.squamous LM Ql (Urine sed)Ordered By: Megan Montoya on 09-03-2024 Epithelial cells.squamous LM.HPF (Urine sed) [#/Area] 10 /[HPF] 5-10 [facility] Erythrocyte distribution wid th ratioOrdered By: Megan Montoya on 09-03-2024 Erythrocyte distribution width (RBC) [Ratio] 17.9 % High 11.6-14.6 [facility] Erythrocyte distribution wid th standard deviationOrdered By: Megan Montoya on 09-03-2024 Erythrocyte distribution width (RBC) [Entitic vol] 54.3 fL High 35.1-43.9 [facility] Estimated glomerular filtrat ion rate (GFR) AmericanOrdered By: Megan Montoya on 09-03-2024 Estimated GFR (MDRD) Amer 75 mL/min >60 [facility] Comment on above: GFR Calc Glomerular filtration rate ( GFR) estimationOrdered By: Megan Montoya on 09-03-2024 Estimated GFR (MDRD) Non-Af Amer 62 mL/min >60 [facility] Comment on above: Non- GFR Calc Glucose Ql (U)Ordered By: Johnathan Guzman on 09-03-2024 Urine Glucose (UA) Normal mg/dl Normal [facility] Glucose measurementOrdered B y: Megan Montoya on 09-03-2024 Glucose [Mass/Vol] 115 mg/dL High 74-106 [facility] Comment on above: Fasting Glucose resu lt from 100 to 125 mg/dL suggests IMPAIRED HOMEOSTASIS per A.D.A. criteria. Hematocrit Auto (Bld) [Volum e fraction]Ordered By: Megan Montoya on 09-03-2024 Hematocrit (Bld) [Volume fraction] 30.8 % Low 37-47 [facility] Hemoglobin measurementOrdere d By: Megan Montoya on 09-03-2024 Hemoglobin (Bld) [Mass/Vol] 9.5 g/dL Low 12.0-15.0 [facility] Ketones Test strip Ql (U)Ord ered By: Megan Montoya on 09-03-2024 Ketones Ql (U) 5 mg/dl High Negative [facility] MCV (mean corpuscular volume ) determinationOrdered By: Megan Montoya on 09-03-2024 MCV (RBC) [Entitic vol] 83.5 fL 81-99 [facility] Mean corpuscular hemoglobin (MCH) determinationOrdered By: Megan Montoya on 09-03-2024 MCH (RBC) [Entitic mass] 25.7 pg Low 27.0-32.0 [facility] Mean corpuscular hemoglobin concentration (MCHC) determinationOrdered By: Megan Montoya on 09-03-2024 MCHC (RBC) [Mass/Vol] 30.8 g/dL Low 32-36 [facility] Mean platelet volume determi nationOrdered By: Megan Montoya on 09-03-2024 Platelet mean volume (Bld) [Entitic vol] 10.2 fL 6.2-12.0 [facility] Microscopic analysis of urin e for red blood cells (RBC)Ordered By: Megan Montoya on 09-03-2024 Urine RBC 5-10 SEEN /hpf 0-5 [facility] Mucus LM Ql (Urine sed)Order ed By: Megan Montoya on 09-03-2024 Mucus Ql (Urine sed) 1+ /hpf [facility] Nitrite Test strip Ql (U)Ord ered By: Megan Montoya on 09-03-2024 Nitrite Ql (U) Positive High Negative [facility] Platelet countOrdered By: Johnathan Guzman on 09-03-2024 Platelets (Bld) [#/Vol] 431 10*3/uL 150-450 [facility] Potassium measurementOrdered By: Megan Montoya on 09-03-2024 Potassium [Moles/Vol] 4.4 mmol/L 3.5-5.1 [facility] Protein Test strip Ql (U)Ord ered By: Megan Montoya on 09-03-2024 Protein Ql (U) 100 mg/dl High Negative [facility] RBC Auto (Bld) [#/Vol]Ordere d By: Megan Montoya on 09-03-2024 RBC (Bld) [#/Vol] 3.69 10*6/uL Low 4.2-5.4 [facility] Serum anion gap measurementO rdered By: Megan Montoya on 09-03-2024 Anion gap [Moles/Vol] 9 mmol/L 5-15 [facility] Serum or plasma calcium reyna urement (mass/volume)Ordered By: Megan Montoya on 09-03-2024 Calcium [Mass/Vol] 9.4 mg/dL 8.5-10.1 [facility] Serum or plasma creatinine m easurement (mass/volume)Ordered By: Megan Montoya on 09-03-2024 Creatinine [Mass/Vol] 0.92 mg/dL 0.55-1.02 [facility] Comment on above: The validity of the calculated GFR & GFRAA in patients over 70 years has not been determined. Clinical correlation is essential. Serum or plasma urea nitroge n measurement (mass/volume)Ordered By: Megan Montoya on 09-03-2024 Urea nitrogen [Mass/Vol] 19 mg/dL High 7-18 [facility] Sodium levelOrdered By: Juan C Montoya on 09-03-2024 Sodium [Moles/Vol] 139 mmol/L 136-145 [facility] Urine blood detectionOrdered By: Megan Montoya on 09-03-2024 Urine Occult Blood 150 /ul High Negative [facility] Urine clarityOrdered By: Pola Montoya on 09-03-2024 Clarity (U) Cloudy Clear [facility] Urine color determinationOrd ered By: Megan Montoya on 09-03-2024 Color (U) Yellow Yellow [facility] Urine cultureOrdered By: Pola Montoya on 09-03-2024 Bacteria identified Cx Nom (U) Proteus mirabilis Abnormal [facility] Bacteria identified Cx Nom (U) Klebsiella pneumoniae sp pneum Abnormal [facility] Bacteria identified Cx Nom (U) Proteus mirabilis Abnormal [facility] Bacteria identified Cx Nom (U) Klebsiella pneumoniae sp pneum Abnormal [facility] Urine leukocyte esterase det ection by dipstickOrdered By: Megan Montoya on 09-03-2024 Leukocyte esterase Test strip Ql (U) 500 /ul High Negative [facility] Urine pHOrdered By: Megan jimenez on 09-03-2024 pH (U) 6.0 [pH] 5.0 - 8.0 [facility] Urine sediment bacteria coun t by microscopy (number/high power field)Ordered By: Megan Montoya on 09-03-2024 Bacteria LM.HPF (Urine sed) [#/Area] 4 /[HPF] None Seen [facility] Urine specific gravity measu rementOrdered By: Megan Montoya on 09-03-2024 Specific gravity (U) [Rel density] 1.020 1.002-1.030 [facility] Urobilinogen Ql (U)Ordered B y: Megan Montoya on 09-03-2024 Urine Urobilinogen Normal mg/dl Normal [facility] White blood cell (WBC) count Ordered By: Megan Montoya on 09-03-2024 WBC (Bld) [#/Vol] 10.6 10*3/uL 4.4-11.0 [facility] White blood cell countOrdere d By: Megan Montoya on 09-03-2024 Urine WBC 50-100 SEEN /hpf 0-5 [facility] [id number] 08-27-2024 [id number] Patient Choice Patient Name: MEL POP Date of : 1940 Normal [facility] Progress Noteon 08-22-2024 Progress Note Normal [facility] Albumin to globulin ratioOrd ered By: Megan Montoya on 08-20-2024 Albumin/Globulin [Mass ratio] 0.7 {ratio} Low 0.9-2.4 [facility] Bilirubin, totalOrdered By: Megan Montoya on 08-20-2024 Bilirubin [Mass/Vol] 0.60 mg/dL 0.20-1.00 [facility] Comment on above: For patients on eltr ombopag therapy, use of Dimension [place] TBIL is not recommended. Blood urea nitrogen (BUN)/cr eatinine ratioOrdered By: Megan Montoya on 08-20-2024 Urea nitrogen/Creatinine [Mass ratio] 11.2 mg/mg 10-20 [facility] CBC-Complete Blood Cnt No Di ffon 08-20-2024 Erythrocyte distribution width (RBC) [Ratio] 19.2 % High 11.6-14.6 [facility] Comment on above: Performed By: #### L 100.0500, L500.4050 #### [facility] [address] [place], [address] Hematocrit (Bld) [Volume fraction] 33.4 % Low 37-47 [facility] Comment on above: Performed By: #### L 100.0500, L500.4050 #### [facility] [address] [place], [address] Hemoglobin (Bld) [Mass/Vol] 10.4 g/dL Low 12.0-15.0 [facility] Comment on above: Performed By: #### L 100.0500, L500.4050 #### [facility] [address] [place], [address] MCH (RBC) [Entitic mass] 26.3 pg Low 27.0-32.0 [facility] Comment on above: Performed By: #### L 100.0500, L500.4050 #### [facility] [address] [place], [address] MCHC (RBC) [Mass/Vol] 31.1 g/dL Low 32-36 [facility] Comment on above: Performed By: #### L 100.0500, L500.4050 #### [facility] [address] [place], [address] MCV (RBC) [Entitic vol] 84.6 fL Normal 81-99 [facility] Comment on above: Performed By: #### L 100.0500, L500.4050 #### [facility] [address] [place], [address] Platelet mean volume (Bld) [Entitic vol] 9.7 fL Normal 6.2-12.0 [facility] Comment on above: Performed By: #### L 100.0500, L500.4050 #### [facility] [address] [place], [address] Platelets (Bld) [#/Vol] 405 10*3/uL Normal 150-450 [facility] Comment on above: Performed By: #### L 100.0500, L500.4050 #### [facility] [address] [place], [address] RBC (Bld) [#/Vol] 3.95 10*6/uL Low 4.2-5.4 [facility] Comment on above: Performed By: #### L 100.0500, L500.4050 #### [facility] [address] [place], [address] RDW SD 58.9 fl High 35.1-43.9 [facility] Comment on above: Performed By: #### L 100.0500, L500.4050 #### [facility] [address] [place], [address] WBC (Bld) [#/Vol] 5.9 10*3/uL Normal 4.4-11.0 [facility] Comment on above: Performed By: #### L 100.0500, L500.4050 #### [facility] [address] [place], [address] Carbon dioxide measurementOr dered By: Megan Montoya on 08-20-2024 CO2 [Moles/Vol] 22.0 mmol/L 21.0-32.0 [facility] Chloride measurementOrdered By: Megan Montoya on 08-20-2024 Chloride [Moles/Vol] 109 mmol/L High 98-107 [facility] Comprehensive Metabolic Prof ilon 08-20-2024 Albumin [Mass/Vol] 2.7 g/dL Low 3.2-5.0 [facility] Comment on above: Performed By: #### L 100.0500, L500.4050 #### [facility] [address] [place], [address] Albumin/Globulin [Mass ratio] 0.7 {ratio} Low 0.9-2.4 [facility] Comment on above: Performed By: #### L 100.0500, L500.4050 #### [facility] [address] [place], [address] ALK P 117 U/L Normal 45-117 [facility] Comment on above: Performed By: #### L 100.0500, L500.4050 #### [facility] [address] [place], [address] ALT [Catalytic activity/Vol] 18 U/L Normal 13-56 [facility] Comment on above: Performed By: #### L 100.0500, L500.4050 #### [facility] [address] [place], [address] AST [Catalytic activity/Vol] 18 U/L Normal 15-37 [facility] Comment on above: Result Comment: Slig ht Hemolysis, Result may be falsely increased. Performed By: #### L 100.0500, L500.4050 #### [facility] [address] [place], [address] Bilirubin [Mass/Vol] 0.60 mg/dL Normal 0.20-1.00 [facility] Comment on above: Result Comment: For patients on eltrombopag therapy, use of Dimension [place] TBIL is not recommended. Performed By: #### L 100.0500, L500.4050 #### [facility] [address] [place], [address] BUN/CRE 11.2 RATIO Normal 10-20 [facility] Comment on above: Performed By: #### L 100.0500, L500.4050 #### [facility] [address] [place], [address] CA,Total 9.0 mg/dL Normal 8.5-10.1 [facility] Comment on above: Performed By: #### L 100.0500, L500.4050 #### [facility] [address] [place], [address] Chloride [Moles/Vol] 109 mmol/L High 98-107 [facility] Comment on above: Performed By: #### L 100.0500, L500.4050 #### [facility] [address] [place], [address] CO2 [Moles/Vol] 22.0 mmol/L Normal 21.0-32.0 [facility] Comment on above: Performed By: #### L 100.0500, L500.4050 #### [facility] [address] [place], [address] Creatinine [Mass/Vol] 0.98 mg/dL Normal 0.55-1.02 [facility] Comment on above: Result Comment: The validity of the calculated GFR GFRAA in patients over 70 years has not been determined. Clinical correlation is essential. Performed By: #### L 100.0500, L500.4050 #### [facility] [address] [place], [address] EST GFR - AA 69 mL/min Normal >60 [facility] Comment on above: Result Comment: Afri can Bangladeshi GFR Calc Performed By: #### L 100.0500, L500.4050 #### [facility] [address] [place], [address] GAP 7 Normal 5-15 [facility] Comment on above: Performed By: #### L 100.0500, L500.4050 #### [facility] [address] [place], [address] GFR/1.73 sq M.predicted among non-blacks MDRD (S/P/Bld) [Vol rate/Area] 57 mL/min/{1.73_m2} Low >60 [facility] Comment on above: Result Comment: Non- GFR Calc Performed By: #### L 100.0500, L500.4050 #### [facility] [address] [place], [address] Globulin (S) [Mass/Vol] 4.1 g/dL Normal 2.2-4.2 [facility] Comment on above: Performed By: #### L 100.0500, L500.4050 #### [facility] [address] [place], [address] Glucose [Mass/Vol] 97 mg/dL Normal 74-106 [facility] Comment on above: Performed By: #### L 100.0500, L500.4050 #### [facility] [address] [place], [address] Potassium [Moles/Vol] 4.2 mmol/L Normal 3.5-5.1 [facility] Comment on above: Result Comment: Slig ht Hemolysis, Result may be falsely increased. Performed By: #### L 100.0500, L500.4050 #### [facility] [address] [place], [address] Sodium [Moles/Vol] 138 mmol/L Normal 136-145 [facility] Comment on above: Performed By: #### L 100.0500, L500.4050 #### [facility] [address] [place], [address] T PROT 6.8 g/dL Normal 6.4-8.2 [facility] Comment on above: Performed By: #### L 100.0500, L500.4050 #### [facility] [address] [place], [address] Urea nitrogen [Mass/Vol] 11 mg/dL Normal 7-18 [facility] Comment on above: Performed By: #### L 100.0500, L500.4050 #### [facility] [address] [place], [place], [address] Erythrocyte distribution wid th ratioOrdered By: Megan Montoya on 08-20-2024 Erythrocyte distribution width (RBC) [Ratio] 19.2 % High 11.6-14.6 [facility] Erythrocyte distribution wid th standard deviationOrdered By: Megan Montoya on 08-20-2024 Erythrocyte distribution width (RBC) [Entitic vol] 58.9 fL High 35.1-43.9 [facility] Estimated glomerular filtrat ion rate (GFR) AmericanOrdered By: Megan Montoya on 08-20-2024 Estimated GFR (MDRD) Amer 69 mL/min >60 [facility] Comment on above: GFR Calc Glomerular filtration rate ( GFR) estimationOrdered By: Megan Montoya on 08-20-2024 Estimated GFR (MDRD) Non-Af Amer 57 mL/min Low >60 [facility] Comment on above: Non- GFR Calc Glucose measurementOrdered B y: Megan Montoya on 08-20-2024 Glucose [Mass/Vol] 97 mg/dL 74-106 [facility] Hematocrit Auto (Bld) [Volum e fraction]Ordered By: Megan Montoya on 08-20-2024 Hematocrit (Bld) [Volume fraction] 33.4 % Low 37-47 [facility] Hemoglobin measurementOrdere d By: Megan Montoya on 08-20-2024 Hemoglobin (Bld) [Mass/Vol] 10.4 g/dL Low 12.0-15.0 [facility] - Chemistry and C hemistry - challengeOrdered By: Megan Montoya on 08-20-2024 AST [Catalytic activity/Vol] 18 U/L 15-37 [facility] Comment on above: Slight Hemolysis, Re sult may be falsely increased. MCV (mean corpuscular volume ) determinationOrdered By: Megan Montoya on 08-20-2024 MCV (RBC) [Entitic vol] 84.6 fL 81-99 [facility] Mean corpuscular hemoglobin (MCH) determinationOrdered By: Megan Montoya on 08-20-2024 MCH (RBC) [Entitic mass] 26.3 pg Low 27.0-32.0 [facility] Mean corpuscular hemoglobin concentration (MCHC) determinationOrdered By: Megan Montoya on 08-20-2024 MCHC (RBC) [Mass/Vol] 31.1 g/dL Low 32-36 [facility] Mean platelet volume determi nationOrdered By: Megan Montoya on 08-20-2024 Platelet mean volume (Bld) [Entitic vol] 9.7 fL 6.2-12.0 [facility] Platelet countOrdered By: Johnathan Guzman on 08-20-2024 Platelets (Bld) [#/Vol] 405 10*3/uL 150-450 [facility] Potassium measurementOrdered By: Megan Montoya on 08-20-2024 Potassium [Moles/Vol] 4.2 mmol/L 3.5-5.1 [facility] Comment on above: Slight Hemolysis, Re sult may be falsely increased. RBC Auto (Bld) [#/Vol]Ordere d By: Megan Montoya on 08-20-2024 RBC (Bld) [#/Vol] 3.95 10*6/uL Low 4.2-5.4 [facility] Serum anion gap measurementO rdered By: Megan Montoya on 08-20-2024 Anion gap [Moles/Vol] 7 mmol/L 5-15 [facility] Serum globulin measurementOr dered By: Megan Montoya on 08-20-2024 Globulin (S) [Mass/Vol] 4.1 g/dL 2.2-4.2 [facility] Serum or plasma alanine hinojosa otransferase (ALT) measurementOrdered By: Megan Montoya on 08-20-2024 ALT [Catalytic activity/Vol] 18 U/L 13-56 [facility] Serum or plasma albumin reyna urement (mass/volume)Ordered By: Megan Montoya on 08-20-2024 Albumin [Mass/Vol] 2.7 g/dL Low 3.2-5.0 [facility] Serum or plasma alkaline silvia sphatase measurementOrdered By: Megan oMntoya on 08-20-2024 ALP [Catalytic activity/Vol] 117 U/L 45-117 [facility] Serum or plasma calcium reyna urement (mass/volume)Ordered By: Megan Montoya on 08-20-2024 Calcium [Mass/Vol] 9.0 mg/dL 8.5-10.1 [facility] Serum or plasma creatinine m easurement (mass/volume)Ordered By: Megan Montoya on 08-20-2024 Creatinine [Mass/Vol] 0.98 mg/dL 0.55-1.02 [facility] Comment on above: The validity of the calculated GFR & GFRAA in patients over 70 years has not been determined. Clinical correlation is essential. Serum or plasma urea nitroge n measurement (mass/volume)Ordered By: Megan Montoya on 08-20-2024 Urea nitrogen [Mass/Vol] 11 mg/dL 7-18 [facility] Sodium levelOrdered By: Juan C Montoya on 08-20-2024 Sodium [Moles/Vol] 138 mmol/L 136-145 [facility] Total proteinOrdered By: Pola Montoya on 08-20-2024 Protein [Mass/Vol] 6.8 g/dL 6.4-8.2 [facility] White blood cell (WBC) count Ordered By: Megan Montoya on 08-20-2024 WBC (Bld) [#/Vol] 5.9 10*3/uL 4.4-11.0 [facility] [id number] 08-16-2024 [id number] Normal [facility] [id number] Normal [facility] [id number] MAR & Discharge med list transmitted to [facility] via [employer] per TCC request. Electronically signed by JESSICA Leone Normal [facility] [id number] Normal [facility] Laboratory - Chemistry and C hemistry - challengeon 08-16-2024 Glucose [Mass/Vol] 120 mg/dL High 70 - 100 mg/dL [facility] No Panel Informationon 08-16 Interpretation and review of laboratory results Abnormal [facility]: [facility], [address] [place] [address], Replaced by [facility] [id number] CLIA ID: [id number] [facility] Nursing Noteon 08-16-2024 Nursing Note Patient picked up fo r transfer to [facility] by stretcher. Report already called to GENET Garcia. Normal [facility] Nursing Note Telephone report erin led to GENET Garcia at [facility]. Normal [facility] Progress Noteon 08-16-2024 Progress Note [facility] 30on 08-15-2024 30 Normal [facility] [id number] 08-15-2024 [id number] Authorization is pending with [facility]. Ref# [id number] to be DC'd to [facility]. Dtr Fdiel Sharma. CM to follow. Normal [facility] Progress Noteon 08-15-2024 Progress Note [facility] 30on 08-14-2024 30 Normal [facility] [id number] 08-14-2024 [id number] Normal [facility] Progress Noteon 08-14-2024 Progress Note Normal [facility] Progress Note Normal [facility] Progress Note Normal [facility] 30on 08-13-2024 30 Normal [facility] 30 Normal [facility] [id number] 08-13-2024 [id number] Normal [facility] Progress Noteon 08-13-2024 Progress Note Normal [facility] Progress Note Normal [facility] 30on 08-12-2024 30 Normal [facility] Progress Noteon 08-12-2024 Progress Note Normal [facility] 30on 08-11-2024 30 Normal [facility] 30 Normal [facility] [id number] 08-11-2024 [id number] CM noted DC orders i n place, Dgt touring facilities over the weekend. [place] pending acceptance, updates sent via careport. Normal [facility] Progress Noteon 08-11-2024 Progress Note Normal [facility] 30on 08-10-2024 30 Normal [facility] [id number] 08-10-2024 [id number] Normal [facility] Progress Noteon 08-10-2024 Progress Note [facility] [id number] 08-09-2024 [id number] Normal [facility] [id number] Normal [facility] [id number] Updated PT/OT notes placed to SNF [facility] via Careport per TCC request. Await review and response regarding ability to accept. TCC notified. Electronically signed by [facility] Aracelis Gardiner Normal [facility] [id number] Patient is medically ready for dc. PT/OT both continuing to recommend SNF. [facility] clinique counter manager asked to start auth. Plan to dc back to [facility] pending auth [facility] Progress Noteon 08-09-2024 Progress Note Normal [facility] [id number] 08-08-2024 [id number] Normal [facility] Progress Noteon 08-08-2024 Progress Note Normal [facility] Progress Note Normal [facility] Progress Note Normal [facility] 30on 08-07-2024 30 Normal [facility] 30 Normal [facility] 30 Normal [facility] [id number] 08-07-2024 [id number] Normal [facility] Progress Noteon 08-07-2024 Progress Note Normal [facility] 30on 08-06-2024 30 Normal [facility] 30 Normal [facility] [id number] 08-06-2024 [id number] Pt cont's on IV AtBs '. Plan is for pt to return to [facility]. Auth and HECTOR needed prior to DC. CM to follow. Normal [facility] [id number] Normal [facility] Comprehensive metabolic 1998 panelon 08-06-2024 Albumin [Mass/Vol] 2.4 g/dL Low 3.4 - 4.8 g/dL [facility] ALP [Catalytic activity/Vol] 72 U/L 40 - 150 U/L [facility] ALT [Catalytic activity/Vol] 24 U/L NINF - 30 U/L [facility] Anion gap [Moles/Vol] 7 mmol/L 3 - 13 mmol/L [facility] AST [Catalytic activity/Vol] 21 U/L NINF - 34 U/L [facility] Bilirubin [Mass/Vol] 0.9 mg/dL NINF - 1.2 mg/dL [facility] Calcium [Mass/Vol] 8.4 mg/dL Low 8.8 - 10. 0 mg/dL [facility] Chloride [Moles/Vol] 115 mmol/L High 98 - 10 7 mmol/L [facility] CO2 [Moles/Vol] 17 mmol/L Low 23 - 31 mmol/L [facility] Creatinine [Mass/Vol] 0.91 mg/dL 0.57 - 1.11 mg/dL [facility] GFR/1.73 sq M.predicted (S/P/Bld) [Vol rate/Area] 62.3 mL/min - PINF [facility] Comment on above: Calculation based on the Chronic Kidney Disease Epidemiology Collaboration (CKD-EPI) equation refit without adjustment for race Glucose [Mass/Vol] 92 mg/dL 82 - 115 mg/dL [facility] Interpretation and review of laboratory results Abnormal [facility] Potassium [Moles/Vol] 3.8 mmol/L 3.5 - 5.1 mmol/L [facility] Comment on above: Plasma potassium chris ues may be up to 0.5 mmol/L lower than serum values. Protein [Mass/Vol] 5.5 g/dL Low 6.4 - 8.3 g/dL [facility] Sodium [Moles/Vol] 139 mmol/L 136 - 145 mmol/L [facility] Urea nitrogen [Mass/Vol] 9 mg/dL 9 - 23 mg/dL [facility] Consulton 08-06-2024 Consult Normal [facility] Progress Noteon 08-06-2024 Progress Note Normal [facility] Progress Note Normal [facility] 30on 08-05-2024 30 Normal [facility] CBC W Auto Differential pane l (Bld)Ordered By: Frank Milligan on 08-05-2024 Basophils (Bld) [#/Vol] 0 10*3/uL 0.0 - 0.2 10*3/uL [facility] Basophils/100 WBC (Bld) 0.3 % 0.0 - 2.0 % [facility] Eosinophils (Bld) [#/Vol] 0.1 10*3/uL 0.0 - 0.5 10*3/uL [facility] Eosinophils/100 WBC (Bld) 1.6 % 0.0 - 6.0 % [facility] Erythrocyte distribution width (RBC) [Ratio] 18.9 % High 11.5 - 15.0 % [facility] Hematocrit (Bld) [Volume fraction] 33.3 % Low 35.0 - 47.0 % [facility] Hemoglobin (Bld) [Mass/Vol] 10.3 g/dL Low 11.7 - 16.0 g/dL [facility] Immature granulocytes (Bld) [#/Vol] 0.1 10*3/uL High NINF - 0.1 10*3/uL [facility] Immature granulocytes/100 WBC (Bld) 0.7 % 0.0 - 2.0 % [facility] Interpretation and review of laboratory results Abnormal [facility] Lymphocytes (Bld) [#/Vol] 1.1 10*3/uL 1.0 - 4.3 10*3/uL [facility] Lymphocytes/100 WBC (Bld) 15.6 % 15.0 - 45.0 % [facility] MCH (RBC) [Entitic mass] 26 pg 26.0 - 34.0 pg [facility] MCHC (RBC) [Mass/Vol] 30.9 % 30.5 - 36.0 % [facility] MCV (RBC) [Entitic vol] 84.1 fL 77.0 - 99.0 fL [facility] Monocytes (Bld) [#/Vol] 0.7 10*3/uL 0.0 - 0.9 10*3/uL [facility] Monocytes/100 WBC (Bld) 9.9 % 5.0 - 13.0 % [facility] Neutrophils (Bld) [#/Vol] 5.3 10*3/uL 1.8 - 7.5 10*3/uL [facility] Neutrophils/100 WBC (Bld) 71.9 % 38.0 - 82.0 % [facility] Nucleated RBC/100 WBC (Bld) [Ratio] 0 % [facility] Platelet mean volume (Bld) [Entitic vol] 9.2 fL 9.0 - 12.7 fL [facility] Platelets (Bld) [#/Vol] 235 10*3/uL 140 - 440 10*3/uL [facility] RBC (Bld) [#/Vol] 3.96 10*6/uL 3.80 - 5.2 0 10*6/uL [facility] WBC (Bld) [#/Vol] 7.3 10*3/uL 3.6 - 10.7 10*3/uL [facility] CBC W Auto Differential pane l (Bld)Ordered By: Aden Baires on 08-05-2024 Basophils (Bld) [#/Vol] 0 10*3/uL 0.0 - 0.2 10*3/uL [facility] Basophils/100 WBC (Bld) 0.3 % 0.0 - 2.0 % [facility] Eosinophils (Bld) [#/Vol] 0.1 10*3/uL 0.0 - 0.5 10*3/uL [facility] Eosinophils/100 WBC (Bld) 1.5 % 0.0 - 6.0 % [facility] Erythrocyte distribution width (RBC) [Ratio] 19.2 % High 11.5 - 15.0 % [facility] Hematocrit (Bld) [Volume fraction] 31.9 % Low 35.0 - 47.0 % [facility] Hemoglobin (Bld) [Mass/Vol] 9.9 g/dL Low 11.7 - 16.0 g/dL [facility] Immature granulocytes (Bld) [#/Vol] 0 10*3/uL NINF - 0.1 10*3/uL [facility] Immature granulocytes/100 WBC (Bld) 0.5 % 0.0 - 2.0 % [facility] Interpretation and review of laboratory results Abnormal [facility] Lymphocytes (Bld) [#/Vol] 1.1 10*3/uL 1.0 - 4.3 10*3/uL [facility] Lymphocytes/100 WBC (Bld) 16.6 % 15.0 - 45.0 % [facility] MCH (RBC) [Entitic mass] 26.2 pg 26.0 - 34.0 pg [facility] MCHC (RBC) [Mass/Vol] 31 % 30.5 - 36.0 % [facility] MCV (RBC) [Entitic vol] 84.4 fL 77.0 - 99.0 fL [facility] Monocytes (Bld) [#/Vol] 0.6 10*3/uL 0.0 - 0.9 10*3/uL [facility] Monocytes/100 WBC (Bld) 9.1 % 5.0 - 13.0 % [facility] Neutrophils (Bld) [#/Vol] 4.7 10*3/uL 1.8 - 7.5 10*3/uL [facility] Neutrophils/100 WBC (Bld) 72 % 38.0 - 82.0 % [facility] Nucleated RBC/100 WBC (Bld) [Ratio] 0 % [facility] Platelet mean volume (Bld) [Entitic vol] 10 fL 9.0 - 12.7 fL [facility] Platelets (Bld) [#/Vol] 242 10*3/uL 140 - 440 10*3/uL [facility] RBC (Bld) [#/Vol] 3.78 10*6/uL Low 3.80 - 5.2 0 10*6/uL [facility] WBC (Bld) [#/Vol] 6.5 10*3/uL 3.6 - 10.7 10*3/uL [facility] CBC WITH AUTO DIFFERENTIALon 08-05-2024 Basophils (Bld) [#/Vol] 0.0 10*3/uL Normal 0.0-0.2 [facility] Comment on above: Performed By: #### L [id number] ####Improvement Auditor: VELMA VALADEZ ([phone])[facility])[address] [place] [address] Basophils/100 WBC (Bld) 0.3 % Normal 0.0-2.0 [facility] Comment on above: Performed By: #### L [id number] ####Improvement Auditor: VELMA VALADEZ ([id number])[facility])[address] [place] [address] Eosinophils (Bld) [#/Vol] 0.1 10*3/uL Normal 0.0-0.5 [facility] Comment on above: Performed By: #### L [id number] ####Improvement Auditor: VELMA VALADEZ ([id number])[facility])[address] [place] [address] Eosinophils/100 WBC (Bld) 1.6 % Normal 0.0-6.0 [facility] Comment on above: Performed By: #### L [id number] ####Improvement Auditor: VELMA VALADEZ ([id number])[facility])[address] [place] [address] Erythrocyte distribution width (RBC) [Ratio] 18.9 % High 11.5-15.0 [facility] Comment on above: Performed By: #### L [id number] ####Improvement Auditor: VELMA VALADEZ ([id number])[facility])[address] [place] [address] Hematocrit (Bld) [Volume fraction] 33.3 % Low 35.0-47.0 [facility] Comment on above: Performed By: #### L [id number] ####Improvement Auditor: VELMA VALADEZ ([id number])[address] Hemoglobin (Bld) [Mass/Vol] 10.3 g/dL Low 11.7-16.0 [facility] Comment on above: Performed By: #### L [id number] ####Improvement Auditor: VELMA VALADEZ ([phone])[facility])[address] [place] [address] IMMATURE GRANS % 0.7 % Normal 0.0-2.0 [facility] Comment on above: Performed By: #### L [id number] ####Improvement Auditor: VELMA VALADEZ ([id number])[facility])[address] [place] [address] IMMATURE GRANS ABSOLUTE 0.1 10*3/uL High <0.1 [facility] Comment on above: Performed By: #### L [id number] ####Improvement Auditor: VELMA VALADEZ ([phone])[facility])[address] [place] [address] Lymphocytes (Bld) [#/Vol] 1.1 10*3/uL Normal 1.0-4.3 [facility] Comment on above: Performed By: #### L [id number] ####Improvement Auditor: VELMA VALADEZ ([id number])[facility])[address] [place] [address] Lymphocytes/100 WBC (Bld) 15.6 % Normal 15.0-45.0 [facility] Comment on above: Performed By: #### L [id number] ####Improvement Auditor: VELMA VALADEZ ([id number])[facility])[address] [place] [address] MCH (RBC) [Entitic mass] 26.0 pg Normal 26.0-34.0 [facility] Comment on above: Performed By: #### L [id number] ####Improvement Auditor: VELMA VALADEZ ([id number])[address] MCHC 30.9 % Normal 30.5-36.0 [facility] Comment on above: Performed By: #### L [id number] ####Improvement Auditor: VELMA VALADEZ ([phone])[facility])[address] [place] [address] MCV (RBC) [Entitic vol] 84.1 fL Normal 77.0-99.0 [facility] Comment on above: Performed By: #### L [id number] ####Improvement Auditor: VELMA VALADEZ ([id number])[facility])[address] [place] [address] Monocytes (Bld) [#/Vol] 0.7 10*3/uL Normal 0.0-0.9 [facility] Comment on above: Performed By: #### L [id number] ####Improvement Auditor: VELMA VALADEZ ([id number])[facility])[address] [place] [address] Monocytes/100 WBC (Bld) 9.9 % Normal 5.0-13.0 [facility] Comment on above: Performed By: #### L [id number] ####Improvement Auditor: VELMA VALADEZ ([id number])[facility])[address] [place] [address] NEUTROPHILS ABSOLUTE 5.3 10*3/uL Normal 1.8-7.5 [facility] Comment on above: Performed By: #### L [id number] ####Improvement Auditor: VELMA VALADEZ ([id number])[facility])[address] [place] [address] Neutrophils/100 WBC (Bld) 71.9 % Normal 38.0-82.0 [facility] Comment on above: Performed By: #### L [id number] ####Improvement Auditor: VELMA VALADEZ ([id number])[facility])[address] [place] [address] [place] NRBC 0.0 /100 WBCs Normal 0.0-2.0 [facility] Comment on above: Performed By: #### L [id number] ####Improvement Auditor: VELMA VALADEZ ([id number])[facility])[address] [place] [address] Platelet mean volume (Bld) [Entitic vol] 9.2 fL Normal 9.0-12.7 [facility] Comment on above: Performed By: #### L [id number] ####Improvement Auditor: VELMA VALADEZ ([id number])[facility])[address] [place] [address] Platelets (Bld) [#/Vol] 235 10*3/uL Normal 140-440 [facility] Comment on above: Performed By: #### L [id number] ####Improvement Auditor: VELMA VALADEZ ([id number])[facility])[address] [place] [address] RBC (Bld) [#/Vol] 3.96 10*6/uL Normal 3.80-5.20 [facility] Comment on above: Performed By: #### L [id number] ####Improvement Auditor: VELMA VALADEZ ([id number])[facility])[address] [place] [address] WBC (Bld) [#/Vol] 7.3 10*3/uL Normal 3.6-10.7 [facility] Comment on above: Performed By: #### L [id number] ####Improvement Auditor: VELMA VALADEZ ([id number])[facility])[address] [place] [address] Basophils (Bld) [#/Vol] 0.0 10*3/uL Normal 0.0-0.2 [facility] Comment on above: Performed By: #### L [id number] ####Improvement Auditor: VELMA VALADEZ ([id number])[facility])[address] [place] [address] [place] Basophils/100 WBC (Bld) 0.3 % Normal 0.0-2.0 [facility] Comment on above: Performed By: #### L [id number] ####Improvement Auditor: VELMA VALADEZ ([id number])[facility])[address] [place] [address] [place] Eosinophils (Bld) [#/Vol] 0.1 10*3/uL Normal 0.0-0.5 [facility] Comment on above: Performed By: #### L [id number] ####Improvement Auditor: VELMA VALADEZ ([id number])[address] Eosinophils/100 WBC (Bld) 1.5 % Normal 0.0-6.0 [facility] Comment on above: Performed By: #### L [id number] ####Improvement Auditor: EVLMA VALADEZ ([id number])[facility])[address] [place] [address] Erythrocyte distribution width (RBC) [Ratio] 19.2 % High 11.5-15.0 [facility] Comment on above: Performed By: #### L [id number] ####Improvement Auditor: VELMA VALADEZ ([id number])[address] Hematocrit (Bld) [Volume fraction] 31.9 % Low 35.0-47.0 [facility] Comment on above: Performed By: #### L [id number] ####Improvement Auditor: VELMA VALADEZ ([id number])[address] Hemoglobin (Bld) [Mass/Vol] 9.9 g/dL Low 11.7-16.0 [facility] Comment on above: Performed By: #### L [id number] ####Improvement Auditor: VELMA VALADEZ ([id number])[address] IMMATURE GRANS % 0.5 % Normal 0.0-2.0 [facility] Comment on above: Performed By: #### L [id number] ####Improvement Auditor: VELMA VLAADEZ ([id number])[address] IMMATURE GRANS ABSOLUTE 0.0 10*3/uL Normal <0.1 [facility] Comment on above: Performed By: #### L [id number] ####Improvement Auditor: VELMA VALADEZ ([id number])[facility])[address] [place] [address] Lymphocytes (Bld) [#/Vol] 1.1 10*3/uL Normal 1.0-4.3 [facility] Comment on above: Performed By: #### L [id number] ####Improvement Auditor: VELMA VALADEZ ([id number])[facility])[address] [place] [address] Lymphocytes/100 WBC (Bld) 16.6 % Normal 15.0-45.0 [facility] Comment on above: Performed By: #### L [id number] ####Improvement Auditor: VELMA VALADEZ ([id number])[facility])[address] [place] [address] MCH (RBC) [Entitic mass] 26.2 pg Normal 26.0-34.0 [facility] Comment on above: Performed By: #### L [id number] ####Improvement Auditor: VELMA VALADEZ ([id number])[facility])[address] [place] [address] MCHC 31.0 % Normal 30.5-36.0 [facility] Comment on above: Performed By: #### L [id number] ####Improvement Auditor: VELMA VALADEZ ([id number])[facility])[address] [place] [address] MCV (RBC) [Entitic vol] 84.4 fL Normal 77.0-99.0 [facility] Comment on above: Performed By: #### L [id number] ####Improvement Auditor: VELMA VALADEZ ([id number])[facility])[address] [place] [address] Monocytes (Bld) [#/Vol] 0.6 10*3/uL Normal 0.0-0.9 [facility] Comment on above: Performed By: #### L [id number] ####Improvement Auditor: VELMA VALADEZ ([id number])[facility])[address] [place] [address] [place] Monocytes/100 WBC (Bld) 9.1 % Normal 5.0-13.0 [facility] Comment on above: Performed By: #### L [id number] ####Improvement Auditor: VELMA VALADEZ ([id number])[facility])[address] [place] [address] NEUTROPHILS ABSOLUTE 4.7 10*3/uL Normal 1.8-7.5 [facility] Comment on above: Performed By: #### L [id number] ####Improvement Auditor: VELMA VALADEZ ([id number])[facility])[address] [place] [address] Neutrophils/100 WBC (Bld) 72.0 % Normal 38.0-82.0 [facility] Comment on above: Performed By: #### L [id number] ####Improvement Auditor: VELMA VALADEZ ([phone])[facility])[address] [place] [address] NRBC 0.0 /100 WBCs Normal 0.0-2.0 [facility] Comment on above: Performed By: #### L [id number] ####Improvement Auditor: VELMA VALADEZ ([id number])[facility])[address] [place] [address] Platelet mean volume (Bld) [Entitic vol] 10.0 fL Normal 9.0-12.7 [facility] Comment on above: Performed By: #### L [id number] ####Improvement Auditor: VELMA VALADEZ ([id number])[facility])[address] [place] [address] Platelets (Bld) [#/Vol] 242 10*3/uL Normal 140-440 [facility] Comment on above: Performed By: #### L [id number] ####Improvement Auditor: VELMA VALADEZ ([id number])[facility])[address] [place] [address] RBC (Bld) [#/Vol] 3.78 10*6/uL Low 3.80-5.20 [facility] Comment on above: Performed By: #### L [id number] ####Improvement Auditor: VELMA VALADEZ ([id number])[facility])[address] [place] [address] WBC (Bld) [#/Vol] 6.5 10*3/uL Normal 3.6-10.7 [facility] Comment on above: Performed By: #### L [id number] ####Improvement Auditor: VELMA VALADEZ ([id number])[facility])[address] [place] [address] COMPREHENSIVE METABOLIC PANE Gilberto 08-05-2024 Albumin [Mass/Vol] 2.4 g/dL Low 3.4-4.8 [facility] Comment on above: Performed By: #### L [id number] ####Improvement Auditor: VELMA VALADEZ ([id number])[facility])[address] [place] [address] ALP [Catalytic activity/Vol] 72 U/L Normal 40-150 [facility] Comment on above: Performed By: #### L AB17 ####Improvement Auditor: VELMA VALADEZ ([id number])[facility])[address] [place] [address] ALT [Catalytic activity/Vol] 24 U/L Normal <30 [facility] Comment on above: Performed By: #### L AB17 ####Improvement Auditor: VELMA VALADEZ ([id number])[facility])[address] [place] [address] Anion gap [Moles/Vol] 7 mmol/L Normal 3-13 [facility] Comment on above: Performed By: #### L AB17 ####Improvement Auditor: VELMA VALADEZ ([id number])[facility])[address] [place] [address] AST [Catalytic activity/Vol] 21 U/L Normal <34 [facility] Comment on above: Performed By: #### L AB17 ####Improvement Auditor: VELMA VALADEZ ([id number])[facility] [place] [address] Bilirubin [Mass/Vol] 0.9 mg/dL Normal <1.2 [facility] Comment on above: Performed By: #### L AB17 ####Improvement Auditor: VELMA VALADEZ ([id number])[facility] [place] [address] Calcium [Mass/Vol] 8.4 mg/dL Low 8.8-10.0 [facility] Comment on above: Performed By: #### L AB17 ####Improvement Auditor: VELMA VALADEZ ([id number])[facility] [place] [address] Chloride [Moles/Vol] 115 mmol/L High 98-107 [facility] Comment on above: Performed By: #### L AB17 ####Improvement Auditor: VELMA VALADEZ ([id number])[facility] [place] [address] CO2 [Moles/Vol] 17 mmol/L Low 23-31 [facility] Comment on above: Performed By: #### L AB17 ####Improvement Auditor: VELMA VALADEZ ([id number])[facility] [place] [address] Creatinine [Mass/Vol] 0.91 mg/dL Normal 0.57-1.11 [facility] Comment on above: Performed By: #### L AB17 ####Improvement Auditor: VELMA VALADEZ ([id number])[facility] [place] [address] GLOMERULAR FILTRATION RATE ML/MIN/1.73 SQ M.PREDICTED 62.3 mL/min/1.73m*2 Normal >60.0 [facility] Comment on above: Result Comment: Calc ulation based on the Chronic Kidney Disease Epidemiology Collaboration (CKD-EPI) equation refit without adjustment for race Performed By: #### L AB17 ####Improvement Auditor: VELMA VALADEZ ([id number])[facility])[address] [place] [address] Glucose [Mass/Vol] 92 mg/dL Normal 82-115 [facility] Comment on above: Performed By: #### L AB17 ####Improvement Auditor: VELMA VALAEDZ ([phone])[facility])[address] [place] [address] Potassium [Moles/Vol] 3.8 mmol/L Normal 3.5-5.1 [facility] Comment on above: Result Comment: [facility] potassium values may be up to 0.5 mmol/L lower than serum values. Performed By: #### L AB17 ####Improvement Auditor: VELMA VALADEZ ([phone])[facility])[address] [place] [address] Protein [Mass/Vol] 5.5 g/dL Low 6.4-8.3 [facility] Comment on above: Performed By: #### L AB17 ####Improvement Auditor: VELMA VALADEZ ([id number])[facility])[address] [place] [address] Sodium [Moles/Vol] 139 mmol/L Normal 136-145 [facility] Comment on above: Performed By: #### L AB17 ####Improvement Auditor: VELMA VALADEZ ([phone])[facility])[address] [place] [address] [place] Urea nitrogen [Mass/Vol] 9 mg/dL Normal 9-23 [facility] Comment on above: Performed By: #### L AB17 ####Improvement Auditor: VELMA VALADEZ ([id number])[facility])[address] [place] [address] [place] Albumin [Mass/Vol] 2.3 g/dL Low 3.4-4.8 [facility] Comment on above: Performed By: #### L AB17 ####Improvement Auditor: VELMA VALADEZ ([phone])[facility])[address] [place] [address] [place] ALP [Catalytic activity/Vol] 74 U/L Normal 40-150 [facility] Comment on above: Performed By: #### L [id number] ####Improvement Auditor: VELMA VALADEZ ([phone])[facility] ([facility])[address] [place] [address] ALT [Catalytic activity/Vol] 27 U/L Normal <30 [facility] Comment on above: Performed By: #### L [id number] ####Improvement Auditor: VELMA VALADEZ ([phone])[facility] ([facility])[address] [place] [address] Anion gap [Moles/Vol] 5 mmol/L Normal 3-13 [facility] Comment on above: Performed By: #### L [id number] ####Improvement Auditor: VELMA VALADEZ ([id number])[facility])[address] [place] [address] AST [Catalytic activity/Vol] 24 U/L Normal <34 [facility] Comment on above: Performed By: #### L [id number] ####Improvement Auditor: VELMA VALADEZ ([phone])[facility] ([facility])[address] [place] [address] Bilirubin [Mass/Vol] 0.6 mg/dL Normal <1.2 [facility] Comment on above: Performed By: #### L [id number] ####Improvement Auditor: VELMA VALADEZ ([phone])[facility] ([facility])[address] [place] [address] Calcium [Mass/Vol] 8.1 mg/dL Low 8.8-10.0 [facility] Comment on above: Performed By: #### L [id number] ####Improvement Auditor: VELMA VALADEZ ([id number])[facility] ([facility])[address] [place] [address] [place] Chloride [Moles/Vol] 108 mmol/L High 98-107 [facility] Comment on above: Performed By: #### L AB17 ####Improvement Auditor: VELMA VALADEZ ([phone])[facility] ([facility])[address] [place] [address] [place] CO2 [Moles/Vol] 21 mmol/L Low 23-31 [facility] Comment on above: Performed By: #### L [id number] ####Improvement Auditor: VELMA VALADEZ ([phone])[facility])[address] [place] [address] Creatinine [Mass/Vol] 0.89 mg/dL Normal 0.57-1.11 [facility] Comment on above: Performed By: #### L AB17 ####Improvement Auditor: VELMA VALADEZ ([id number])[facility])[address] [place] [address] GLOMERULAR FILTRATION RATE ML/MIN/1.73 SQ M.PREDICTED 64.0 mL/min/1.73m*2 Normal >60.0 [facility] Comment on above: Result Comment: Calc ulation based on the Chronic Kidney Disease Epidemiology Collaboration (CKD-EPI) equation refit without adjustment for race Performed By: #### L AB17 ####Improvement Auditor: VELMA VALADEZ ([phone])[facility])[address] [place] [address] Glucose [Mass/Vol] 85 mg/dL Normal 82-115 [facility] Comment on above: Performed By: #### L AB17 ####Improvement Auditor: VELMA VALADEZ ([id number])[address] Potassium [Moles/Vol] 3.8 mmol/L Normal 3.5-5.1 [facility] Comment on above: Result Comment: [facility] potassium values may be up to 0.5 mmol/L lower than serum values. Performed By: #### L AB17 ####Improvement Auditor: VELMA VALADEZ ([id number])[facility])[address] [place] [address] Protein [Mass/Vol] 5.2 g/dL Low 6.4-8.3 [facility] Comment on above: Performed By: #### L AB17 ####Improvement Auditor: VELMA VALADEZ ([id number])[facility])[address] [place] [address] Sodium [Moles/Vol] 134 mmol/L Low 136-145 [facility] Comment on above: Performed By: #### L [id number] ####Improvement Auditor: VELMA VALADEZ ([phone])[facility])[address] [place] [address] Urea nitrogen [Mass/Vol] 13 mg/dL Normal 9-23 [facility] Comment on above: Performed By: #### L [id number] ####Improvement Auditor: VELMA VALADEZ ([id number])[facility])[address] [place] [address] Comprehensive metabolic 1998 panelon 08-05-2024 Albumin [Mass/Vol] 2.3 g/dL Low 3.4 - 4.8 g/dL [facility] ALP [Catalytic activity/Vol] 74 U/L 40 - 150 U/L [facility] ALT [Catalytic activity/Vol] 27 U/L NINF - 30 U/L [facility] Anion gap [Moles/Vol] 5 mmol/L 3 - 13 mmol/L [facility] AST [Catalytic activity/Vol] 24 U/L NINF - 34 U/L [facility] Bilirubin [Mass/Vol] 0.6 mg/dL NINF - 1.2 mg/dL [facility] Calcium [Mass/Vol] 8.1 mg/dL Low 8.8 - 10. 0 mg/dL [facility] Chloride [Moles/Vol] 108 mmol/L High 98 - 10 7 mmol/L [facility] CO2 [Moles/Vol] 21 mmol/L Low 23 - 31 mmol/L [facility] Creatinine [Mass/Vol] 0.89 mg/dL 0.57 - 1.11 mg/dL [facility] GFR/1.73 sq M.predicted (S/P/Bld) [Vol rate/Area] 64 mL/min - PINF [facility] Comment on above: Calculation based on the Chronic Kidney Disease Epidemiology Collaboration (CKD-EPI) equation refit without adjustment for race Glucose [Mass/Vol] 85 mg/dL 82 - 115 mg/dL [facility] Interpretation and review of laboratory results Abnormal [facility] Potassium [Moles/Vol] 3.8 mmol/L 3.5 - 5.1 mmol/L [facility] Comment on above: Plasma potassium chris ues may be up to 0.5 mmol/L lower than serum values. Protein [Mass/Vol] 5.2 g/dL Low 6.4 - 8.3 g/dL [facility] Sodium [Moles/Vol] 134 mmol/L Low 136 - 145 mmol/L [facility] Urea nitrogen [Mass/Vol] 13 mg/dL 9 - 23 mg/dL [facility] Progress Noteon 08-05-2024 Progress Note Normal [facility] Progress Note Normal [facility] 30on 08-04-2024 30 Normal [facility] 30 Normal [facility] CBC W Auto Differential pane l (Bld)Ordered By: Devika Eisenberg on 08-04-2024 Basophils (Bld) [#/Vol] 0 10*3/uL 0.0 - 0.2 10*3/uL [facility] Basophils/100 WBC (Bld) 0.2 % 0.0 - 2.0 % [facility] Eosinophils (Bld) [#/Vol] 0.1 10*3/uL 0.0 - 0.5 10*3/uL [facility] Eosinophils/100 WBC (Bld) 1.4 % 0.0 - 6.0 % [facility] Erythrocyte distribution width (RBC) [Ratio] 19.3 % High 11.5 - 15.0 % [facility] Hematocrit (Bld) [Volume fraction] 33 % Low 35.0 - 47.0 % [facility] Hemoglobin (Bld) [Mass/Vol] 10 g/dL Low 11.7 - 16.0 g/dL [facility] Immature granulocytes (Bld) [#/Vol] 0 10*3/uL NINF - 0.1 10*3/uL [facility] Immature granulocytes/100 WBC (Bld) 0.5 % 0.0 - 2.0 % [facility] Interpretation and review of laboratory results Abnormal [facility] Lymphocytes (Bld) [#/Vol] 1 10*3/uL 1.0 - 4.3 10*3/uL [facility] Lymphocytes/100 WBC (Bld) 17.7 % 15.0 - 45.0 % [facility] MCH (RBC) [Entitic mass] 25.8 pg Low 26.0 - 34.0 pg [facility] MCHC (RBC) [Mass/Vol] 30.3 % Low 30.5 - 36.0 % [facility] MCV (RBC) [Entitic vol] 85.1 fL 77.0 - 99.0 fL [facility] Monocytes (Bld) [#/Vol] 0.5 10*3/uL 0.0 - 0.9 10*3/uL [facility] Monocytes/100 WBC (Bld) 9.5 % 5.0 - 13.0 % [facility] Neutrophils (Bld) [#/Vol] 3.9 10*3/uL 1.8 - 7.5 10*3/uL [facility] Neutrophils/100 WBC (Bld) 70.7 % 38.0 - 82.0 % [facility] Nucleated RBC/100 WBC (Bld) [Ratio] 0 % [facility] Platelet mean volume (Bld) [Entitic vol] 9.8 fL 9.0 - 12.7 fL [facility] Platelets (Bld) [#/Vol] 280 10*3/uL 140 - 440 10*3/uL [facility] RBC (Bld) [#/Vol] 3.88 10*6/uL 3.80 - 5.2 0 10*6/uL [facility] WBC (Bld) [#/Vol] 5.6 10*3/uL 3.6 - 10.7 10*3/uL [facility] CBC WITH AUTO DIFFERENTIALon 08-04-2024 Basophils (Bld) [#/Vol] 0.0 10*3/uL Normal 0.0-0.2 [facility] Comment on above: Performed By: #### L [id number] ####Improvement Auditor: VELMA VALADEZ ([id number])[facility])[address] [place] [address] Basophils/100 WBC (Bld) 0.2 % Normal 0.0-2.0 [facility] Comment on above: Performed By: #### L [id number] ####Improvement Auditor: VELMA VALADEZ ([phone])[facility])[address] [place] [address] Eosinophils (Bld) [#/Vol] 0.1 10*3/uL Normal 0.0-0.5 [facility] Comment on above: Performed By: #### L [id number] ####Improvement Auditor: VELMA VALADEZ ([id number])[address] Eosinophils/100 WBC (Bld) 1.4 % Normal 0.0-6.0 [facility] Comment on above: Performed By: #### L [id number] ####Improvement Auditor: VELMA VALADEZ ([id number])[facility])[address] [place] [address] Erythrocyte distribution width (RBC) [Ratio] 19.3 % High 11.5-15.0 [facility] Comment on above: Performed By: #### L [id number] ####Improvement Auditor: VELMA VALADEZ ([id number])[address] Hematocrit (Bld) [Volume fraction] 33.0 % Low 35.0-47.0 [facility] Comment on above: Performed By: #### L [id number] ####Improvement Auditor: VELMA VALADEZ ([id number])[address] Hemoglobin (Bld) [Mass/Vol] 10.0 g/dL Low 11.7-16.0 [facility] Comment on above: Performed By: #### L [id number] ####Improvement Auditor: VELMA VALADEZ ([id number])[address] IMMATURE GRANS % 0.5 % Normal 0.0-2.0 [facility] Comment on above: Performed By: #### L [id number] ####Improvement Auditor: VELMA VALADEZ ([phone])[address] IMMATURE GRANS ABSOLUTE 0.0 10*3/uL Normal <0.1 [facility] Comment on above: Performed By: #### L [id number] ####Improvement Auditor: VELMA VALADEZ ([id number])[facility])[address] [place] [address] Lymphocytes (Bld) [#/Vol] 1.0 10*3/uL Normal 1.0-4.3 [facility] Comment on above: Performed By: #### L [id number] ####Improvement Auditor: VELMA VALADEZ ([id number])[facility])[address] [place] [address] Lymphocytes/100 WBC (Bld) 17.7 % Normal 15.0-45.0 [facility] Comment on above: Performed By: #### L [id number] ####Improvement Auditor: VELMA VALADEZ ([id number])[facility])[address] [place] [address] MCH (RBC) [Entitic mass] 25.8 pg Low 26.0-34.0 [facility] Comment on above: Performed By: #### L [id number] ####Improvement Auditor: VELMA VALADEZ ([id number])[facility])[address] [place] [address] MCHC 30.3 % Low 30.5-36.0 [facility] Comment on above: Performed By: #### L [id number] ####Improvement Auditor: VELMA VALADEZ ([id number])[facility])[address] [place] [address] MCV (RBC) [Entitic vol] 85.1 fL Normal 77.0-99.0 [facility] Comment on above: Performed By: #### L [id number] ####Improvement Auditor: VELMA VALADEZ ([id number])[facility])[address] [place] [address] Monocytes (Bld) [#/Vol] 0.5 10*3/uL Normal 0.0-0.9 [facility] Comment on above: Performed By: #### L [id number] ####Improvement Auditor: VELMA VALADEZ ([phone])[facility])[address] [place] [address] Monocytes/100 WBC (Bld) 9.5 % Normal 5.0-13.0 [facility] Comment on above: Performed By: #### L [id number] ####Improvement Auditor: VELMA VALADEZ ([id number])[facility])[address] [place] [address] NEUTROPHILS ABSOLUTE 3.9 10*3/uL Normal 1.8-7.5 [facility] Comment on above: Performed By: #### L [id number] ####Improvement Auditor: VELMA VALADEZ ([id number])[facility])[address] [place] [address] Neutrophils/100 WBC (Bld) 70.7 % Normal 38.0-82.0 [facility] Comment on above: Performed By: #### L [id number] ####Improvement Auditor: VELMA VALADEZ ([id number])[facility])[address] [place] [address] NRBC 0.0 /100 WBCs Normal 0.0-2.0 [facility] Comment on above: Performed By: #### L [id number] ####Improvement Auditor: VELMA VALADEZ ([id number])[facility])[address] [place] [address] Platelet mean volume (Bld) [Entitic vol] 9.8 fL Normal 9.0-12.7 [facility] Comment on above: Performed By: #### L [id number] ####Improvement Auditor: VELMA VALADEZ ([id number])[facility])[address] [place] [address] Platelets (Bld) [#/Vol] 280 10*3/uL Normal 140-440 [facility] Comment on above: Performed By: #### L [id number] ####Improvement Auditor: VELMA VALADEZ ([id number])[facility])[address] [place] [address] RBC (Bld) [#/Vol] 3.88 10*6/uL Normal 3.80-5.20 [facility] Comment on above: Performed By: #### L [id number] ####Improvement Auditor: VELMA VALADEZ ([phone])[facility])[address] [place] [address] WBC (Bld) [#/Vol] 5.6 10*3/uL Normal 3.6-10.7 [facility] Comment on above: Performed By: #### L [id number] ####Improvement Auditor: VELMA VALADEZ ([id number])[facility])[address] [place] [address] COMPREHENSIVE METABOLIC PANE Gilberto 08-04-2024 Albumin [Mass/Vol] 2.3 g/dL Low 3.4-4.8 [facility] Comment on above: Performed By: #### L [id number] ####Improvement Auditor: VELMA VALADEZ ([id number])[facility])[address] [place] [address] ALP [Catalytic activity/Vol] 68 U/L Normal 40-150 [facility] Comment on above: Performed By: #### L [id number] ####Improvement Auditor: VELMA VALADEZ ([id number])[facility])[address] [place] [address] ALT [Catalytic activity/Vol] 26 U/L Normal <30 [facility] Comment on above: Performed By: #### L [id number] ####Improvement Auditor: VELMA VALADEZ ([phone])[facility])[address] [place] [address] Anion gap [Moles/Vol] 6 mmol/L Normal 3-13 [facility] Comment on above: Performed By: #### L AB17 ####Improvement Auditor: VELMA VALADEZ ([phone])[facility])[address] [place] [address] AST [Catalytic activity/Vol] 25 U/L Normal <34 [facility] Comment on above: Performed By: #### L AB17 ####Improvement Auditor: VELMA [id number])[facility])[address] [place] [address] Bilirubin [Mass/Vol] 0.5 mg/dL Normal <1.2 [facility] Comment on above: Performed By: #### L AB17 ####Improvement Auditor: VELMA VALADEZ ([id number])[facility] [place] [address] Calcium [Mass/Vol] 8.2 mg/dL Low 8.8-10.0 [facility] Comment on above: Performed By: #### L [id number] ####Improvement Auditor: VELMA VALADEZ ([phone])[facility] [place] [address] Chloride [Moles/Vol] 112 mmol/L High 98-107 [facility] Comment on above: Performed By: #### L AB17 ####Improvement Auditor: VELMA VALADEZ ([id number])[facility] [place] [address] CO2 [Moles/Vol] 21 mmol/L Low 23-31 [facility] Comment on above: Performed By: #### L AB17 ####Improvement Auditor: VELMA VALADEZ ([id number])[facility])[address] [place] [address] Creatinine [Mass/Vol] 1.13 mg/dL High 0.57-1.11 [facility] Comment on above: Performed By: #### L AB17 ####Improvement Auditor: VELMA VALADEZ ([id number])[facility])[address] [place] [address] GLOMERULAR FILTRATION RATE ML/MIN/1.73 SQ M.PREDICTED 48.1 mL/min/1.73m*2 Low >60.0 [facility] Comment on above: Result Comment: Calc ulation based on the Chronic Kidney Disease Epidemiology Collaboration (CKD-EPI) equation refit without adjustment for race Performed By: #### L AB17 ####Improvement Auditor: VELMA VALADEZ ([id number])[facility] Glucose [Mass/Vol] 153 mg/dL High 82-115 [facility] Comment on above: Performed By: #### L AB17 ####Improvement Auditor: VELMA VALADEZ ([id number])[facility])[address] [place] [address] Potassium [Moles/Vol] 3.9 mmol/L Normal 3.5-5.1 [facility] Comment on above: Result Comment: [facility] potassium values may be up to 0.5 mmol/L lower than serum values. Performed By: #### L AB17 ####Improvement Auditor: VELMA VALADEZ ([id number])[facility])[address] [place] [address] Protein [Mass/Vol] 5.2 g/dL Low 6.4-8.3 [facility] Comment on above: Performed By: #### L AB17 ####Improvement Auditor: VELMA VALADEZ ([phone])[facility])[address] [place] [address] Sodium [Moles/Vol] 139 mmol/L Normal 136-145 [facility] Comment on above: Performed By: #### L AB17 ####Improvement Auditor: VELMA VALADEZ ([id number])[address] Urea nitrogen [Mass/Vol] 26 mg/dL High 9-23 [facility] Comment on above: Performed By: #### L AB17 ####Improvement Auditor: VELMA VALADEZ ([phone])[facility])[address] [place] [address] Comprehensive metabolic 1998 panelon 08-04-2024 Albumin [Mass/Vol] 2.3 g/dL Low 3.4 - 4.8 g/dL [facility] ALP [Catalytic activity/Vol] 68 U/L 40 - 150 U/L [facility] ALT [Catalytic activity/Vol] 26 U/L NINF - 30 U/L [facility] Anion gap [Moles/Vol] 6 mmol/L 3 - 13 mmol/L [facility] AST [Catalytic activity/Vol] 25 U/L NINF - 34 U/L [facility] Bilirubin [Mass/Vol] 0.5 mg/dL NINF - 1.2 mg/dL [facility] Calcium [Mass/Vol] 8.2 mg/dL Low 8.8 - 10. 0 mg/dL [facility] Chloride [Moles/Vol] 112 mmol/L High 98 - 10 7 mmol/L [facility] CO2 [Moles/Vol] 21 mmol/L Low 23 - 31 mmol/L [facility] Creatinine [Mass/Vol] 1.13 mg/dL High 0.57 - 1.11 mg/dL [facility] GFR/1.73 sq M.predicted (S/P/Bld) [Vol rate/Area] 48.1 mL/min Low - PINF [facility] Comment on above: Calculation based on the Chronic Kidney Disease Epidemiology Collaboration (CKD-EPI) equation refit without adjustment for race Glucose [Mass/Vol] 153 mg/dL High 82 - 115 mg/dL [facility] Interpretation and review of laboratory results Abnormal [facility] Potassium [Moles/Vol] 3.9 mmol/L 3.5 - 5.1 mmol/L [facility] Comment on above: Plasma potassium chris ues may be up to 0.5 mmol/L lower than serum values. Protein [Mass/Vol] 5.2 g/dL Low 6.4 - 8.3 g/dL [facility] Sodium [Moles/Vol] 139 mmol/L 136 - 145 mmol/L [facility] Urea nitrogen [Mass/Vol] 26 mg/dL High 9 - 23 mg/dL [facility] Nursing Noteon 08-04-2024 Nursing Note Bedside swallow completed. Pt passed and tolerated well tolerated well. Normal [facility] Progress Noteon 08-04-2024 Progress Note Normal [facility] 30on 08-03-2024 30 Normal [facility] 30 Normal [facility] 30 Normal [facility] [id number] 08-03-2024 [id number] Normal [facility] BASIC METABOLIC PANELon 07-18 Anion gap [Moles/Vol] 6 mmol/L Normal 3-13 [facility] Comment on above: Performed By: #### L AB15 ####Improvement Auditor: VELMA [id number])[facility] [place] [address] Calcium [Mass/Vol] 8.5 mg/dL Low 8.8-10.0 [facility] Comment on above: Performed By: #### L AB15 ####Improvement Auditor: VELMA VALADEZ ([id number])[facility] [place] [address] [place] Chloride [Moles/Vol] 105 mmol/L Normal 98-107 [facility] Comment on above: Performed By: #### L AB15 ####Improvement Auditor: VELMA VALADEZ ([id number])[facility])[address] [place] [address] CO2 [Moles/Vol] 27 mmol/L Normal 23-31 [facility] Comment on above: Performed By: #### L AB15 ####Improvement Auditor: VELMA VALADEZ ([id number])[facility])[address] [place] [address] Creatinine [Mass/Vol] 1.18 mg/dL High 0.57-1.11 [facility] Comment on above: Performed By: #### L AB15 ####Improvement Auditor: VELMA VALADEZ ([id number])[facility])[address] [place] [address] GLOMERULAR FILTRATION RATE ML/MIN/1.73 SQ M.PREDICTED 45.6 mL/min/1.73m*2 Low >60.0 [facility] Comment on above: Result Comment: Calc ulation based on the Chronic Kidney Disease Epidemiology Collaboration (CKD-EPI) equation refit without adjustment for race Performed By: #### L AB15 ####Improvement Auditor: VELMA VALADEZ ([id number])[facility])[address] [place] [address] [place] Glucose [Mass/Vol] 100 mg/dL Normal 82-115 [facility] Comment on above: Performed By: #### L AB15 ####Improvement Auditor: VELMA VALADEZ ([phone])[facility] [place] [address] Potassium [Moles/Vol] 4.7 mmol/L Normal 3.5-5.1 [facility] Comment on above: Result Comment: [facility] potassium values may be up to 0.5 mmol/L lower than serum values. Performed By: #### L AB15 ####Improvement Auditor: VELMA VALADEZ ([id number])[facility])[address] [place] [address] Sodium [Moles/Vol] 138 mmol/L Normal 136-145 [facility] Comment on above: Performed By: #### L AB15 ####Improvement Auditor: VELMA VALADEZ ([phone])[facility])[address] [place] [address] Urea nitrogen [Mass/Vol] 33 mg/dL High 9-23 [facility] Comment on above: Performed By: #### L AB15 ####Improvement Auditor: VELMA VALADEZ ([phone])[facility])[address] [place] [address] Basic metabolic 1998 panelOr dered By: Juni Millard on 08-03-2024 Anion gap [Moles/Vol] 6 mmol/L 3 - 13 mmol/L [facility] Calcium [Mass/Vol] 8.5 mg/dL Low 8.8 - 10. 0 mg/dL [facility] Chloride [Moles/Vol] 105 mmol/L 98 - 10 7 mmol/L [facility] CO2 [Moles/Vol] 27 mmol/L 23 - 31 mmol/L [facility] Creatinine [Mass/Vol] 1.18 mg/dL High 0.57 - 1.11 mg/dL [facility] GFR/1.73 sq M.predicted (S/P/Bld) [Vol rate/Area] 45.6 mL/min Low - PINF [facility] Comment on above: Calculation based on the Chronic Kidney Disease Epidemiology Collaboration (CKD-EPI) equation refit without adjustment for race Glucose [Mass/Vol] 100 mg/dL 82 - 115 mg/dL [facility] Interpretation and review of laboratory results Abnormal [facility] Potassium [Moles/Vol] 4.7 mmol/L 3.5 - 5.1 mmol/L [facility] Comment on above: Plasma potassium chris ues may be up to 0.5 mmol/L lower than serum values. Sodium [Moles/Vol] 138 mmol/L 136 - 145 mmol/L [facility] Urea nitrogen [Mass/Vol] 33 mg/dL High 9 - 23 mg/dL [facility] CBC W Auto Differential pane l (Bld)Ordered By: Christin Mayes on 08-03-2024 Erythrocyte distribution width (RBC) [Ratio] 19.4 % High 11.5 - 15.0 % [facility] Hematocrit (Bld) [Volume fraction] 38.7 % 35.0 - 47.0 % [facility] Hemoglobin (Bld) [Mass/Vol] 12.1 g/dL 11.7 - 16.0 g/dL [facility] MCH (RBC) [Entitic mass] 26 pg 26.0 - 34.0 pg [facility] MCHC (RBC) [Mass/Vol] 31.3 % 30.5 - 36.0 % [facility] MCV (RBC) [Entitic vol] 83.2 fL 77.0 - 99.0 fL [facility] Nucleated RBC/100 WBC (Bld) [Ratio] 0 % [facility] Platelet mean volume (Bld) [Entitic vol] 9.8 fL 9.0 - 12.7 fL [facility] Comment on above: MPV is a calculated measurement using platelet volume ratio Platelets (Bld) [#/Vol] 303 10*3/uL 140 - 440 10*3/uL [facility] RBC (Bld) [#/Vol] 4.65 10*6/uL 3.80 - 5.2 0 10*6/uL [facility] WBC (Bld) [#/Vol] 9.1 10*3/uL 3.6 - 10.7 10*3/uL [facility] CBC WITH AUTO DIFFERENTIALon 08-03-2024 Erythrocyte distribution width (RBC) [Ratio] 19.4 % High 11.5-15.0 [facility] Comment on above: Performed By: #### L [id number], [id number] ####Improvement Auditor: VELMA VALADEZ ([id number])[facility]ITALROSANGELASUSAN GREEN[facility]G (RLAB)[address] Hematocrit (Bld) [Volume fraction] 38.7 % Normal 35.0-47.0 [facility] Comment on above: Performed By: #### L [id number], [id number] ####Improvement Auditor: VELMA VALADEZ ([phone])[facility] SYSTEMSimran ADAMES RITTMAN (SWRLAB)[address] [place] [address] Hemoglobin (Bld) [Mass/Vol] 12.1 g/dL Normal 11.7-16.0 [facility] Comment on above: Performed By: #### L [id number], [id number] ####Improvement Auditor: VELMA VALADEZ ([phone])[facility] SYSTEMSimran ADAMES RITTMAN (SWRLAB)[address] [place] [address] MCH (RBC) [Entitic mass] 26.0 pg Normal 26.0-34.0 [facility] Comment on above: Performed By: #### Weston [id number], [id number] ####Improvement Auditor: VELMA VALADEZ ([phone])[facility] SYSTEMSim[facility] ADAMES RITTMAN (SWRLAB)[address] [place] [address] MCHC 31.3 % Normal 30.5-36.0 [facility] Comment on above: Performed By: #### L [id number], [id number] ####Improvement Auditor: VELMA VALADEZ ([phone])[facility] SYSTEMSim[facility] ADAMES RITTMAN (SWRLAB)[address] [place] [address] MCV (RBC) [Entitic vol] 83.2 fL Normal 77.0-99.0 [facility] Comment on above: Performed By: #### L [id number], [id number] ####Improvement Auditor: VELMA VALADEZ ([phone])[facility] SYSTEMSim[facility] ADAMES RITTMAN (SWRLAB)[address] [place] [address] NRBC 0.0 /100 WBCs Normal 0.0-2.0 [facility] Comment on above: Performed By: #### L [id number], [id number] ####Improvement Auditor: VELMA VALADEZ ([phone])INNA ADAMES RITTMAN (SWRLAB)[address] Platelet mean volume (Bld) [Entitic vol] 9.8 fL Normal 9.0-12.7 [facility] Comment on above: Result Comment: MPV is a calculated measurement using platelet volume ratio Performed By: #### L [id number], [id number] ####Improvement Auditor: VELMA VALADEZ ([phone])INNA ADAMES RITTMAN (SWRLAB)[address] Platelets (Bld) [#/Vol] 303 10*3/uL Normal 140-440 [facility] Comment on above: Performed By: #### L [id number], [id number] ####Improvement Auditor: VELMA VALADEZ ([phone])[facility] SYSTEMSimran ADAMES RITTMAN (SWRLAB)[address] [place] [address] [place] RBC (Bld) [#/Vol] 4.65 10*6/uL Normal 3.80-5.20 [facility] Comment on above: Performed By: #### L [id number], [id number] ####Improvement Auditor: VELMA VALADEZ ([phone])INNA ADAMES RITTMAN (SWRLAB)[address] [place] [address] WBC (Bld) [#/Vol] 9.1 10*3/uL Normal 3.6-10.7 [facility] Comment on above: Performed By: #### L [id number], [id number] ####Improvement Auditor: VELMA VALADEZ ([phone])[facility] SYSTEMSim[facility] ADAMES RITTMAN (SWRLAB)[address] COMPREHENSIVE METABOLIC PANE Gilberto 08-03-2024 Albumin [Mass/Vol] 2.8 g/dL Low 3.4-4.8 [facility] Comment on above: Performed By: #### L AB17, [id number], LAB99 ####Improvement Auditor: VELMA VALADEZ ([phone])[facility] SYSTEMSimran SANCHEZROSANGELA RITTMAN (SWRLAB)[address] [place] [address] [place] ALP [Catalytic activity/Vol] 82 U/L Normal 40-150 [facility] Comment on above: Performed By: #### L AB17, [id number], LAB99 ####Improvement Auditor: VELMA VALADEZ ([id number])[facility] SYSTEMSimran SANCHEZROSANGELA RITTMAN (SWRLAB)[address] [place] [address] [place] ALT [Catalytic activity/Vol] 26 U/L Normal <30 [facility] Comment on above: Performed By: #### Weston AB17, IPL850, LAB99 ####Improvement Auditor: VELMA VALADEZ ([phone])[facility] SYSTEMSimran SANCHEZROSANGELA RITTMAN (SWRLAB)[address] Anion gap [Moles/Vol] 9 mmol/L Normal 3-13 [facility] Comment on above: Performed By: #### Weston REIS17, RJQ263, LAB99 ####Improvement Auditor: VELMA VALADEZ ([phone])[facility] SYSTEMSim[facility] ADAMES RITTMAN (SWRLAB)[address] [place] [address] [place] AST [Catalytic activity/Vol] 36 U/L High <34 [facility] Comment on above: Result Comment: TCSi gnificant interference from hemolysis. Result integrity compromised. Interpret with caution. Performed By: #### Weston REIS17, ICQ225, LAB99 ####Improvement Auditor: VELMA VALADEZ ([phone])[facility] SYSTEMSimran SANCHEZROSANGELA RITTMAN (SWRLAB)[address] [place] [address] [place] Bilirubin [Mass/Vol] 0.7 mg/dL Normal <1.2 [facility] Comment on above: Performed By: #### Weston AB17, [id number], LAB99 ####Improvement Auditor: VELMA VALADEZ ([phone])[facility] SYSTEMSimran SANCHEZROSANGELA RITTMAN (SWRLAB)[address] [place] [address] [place] Calcium [Mass/Vol] 9.0 mg/dL Normal 8.8-10.0 [facility] Comment on above: Performed By: #### Weston AB17, EHD349, LAB99 ####Improvement Auditor: VELMA VALADEZ ([phone])[facility] SYSTEMSim[facility] ADAMES RITTMAN (SWRLAB)[address] [place] [address] [place] Chloride [Moles/Vol] 109 mmol/L High 98-107 [facility] Comment on above: Performed By: #### Weston AB17, JPQ841, LAB99 ####Improvement Auditor: VELMA VALADEZ ([phone])[facility] SYSTEMSim[facility] ADAMES RITTMAN (SWRLAB)[address] [place] [address] [place] CO2 [Moles/Vol] 21 mmol/L Low 23-31 [facility] Comment on above: Performed By: #### Weston AB17, GKX542, LAB99 ####Improvement Auditor: VELMA VALADEZ ([phone])[facility] SYSTEMSim[facility] ADAMES RITTMAN (SWRLAB)[address] [place] [address] [place] Creatinine [Mass/Vol] 1.30 mg/dL High 0.57-1.11 [facility] Comment on above: Performed By: #### Weston HOLLY, [id number], LAB99 ####Improvement Auditor: VELMA VALADEZ ([phone])[facility] SYSTEMSimran VERDINTMAN (SWRLAB)[address] [place] [address] [place] GLOMERULAR FILTRATION RATE ML/MIN/1.73 SQ M.PREDICTED 40.6 mL/min/1.73m*2 Low >60.0 [facility] Comment on above: Result Comment: Calc ulation based on the Chronic Kidney Disease Epidemiology Collaboration (CKD-EPI) equation refit without adjustment for race Performed By: #### Weston AB17, QJY797, LAB99 ####Improvement Auditor: VELMA VALADEZ ([id number])[facility] SYSTEMSim[facility] VERDINTMAN (SWRLAB)[address] [place] [address] [place] Glucose [Mass/Vol] 103 mg/dL Normal 82-115 [facility] Comment on above: Performed By: #### Weston AB17, KAL756, LAB99 ####Improvement Auditor: VELMA VALADEZ ([phone])[facility] SYSTEMSim[facility] ADAMES RITTMAN (SWRLAB)[address] [place] [address] [place] Potassium [Moles/Vol] 5.9 mmol/L High 3.5-5.1 [facility] Comment on above: Result Comment: TCSi gnificant interference from hemolysis. Result integrity compromised. Interpret with caution. Performed By: #### L AB17, MGH601, LAB99 ####Improvement Auditor: VELMA VALADEZ ([id number])[facility] SYSTEMSim[facility] ADAMES RITTMAN (SWRLAB)[address] Protein [Mass/Vol] 6.7 g/dL Normal 6.4-8.3 [facility] Comment on above: Result Comment: TCPo tential interference from hemolysis Performed By: #### Weston AB17, BPS000, LAB99 ####Improvement Auditor: VELMA VALADEZ ([id number])[facility] SYSTEMSim[facility] ADAMES RITTMAN (SWRLAB)[address] Sodium [Moles/Vol] 139 mmol/L Normal 136-145 [facility] Comment on above: Performed By: #### Weston AB17, GRM131, LAB99 ####Improvement Auditor: VELMA VALADEZ ([phone])[facility] SYSTEM[facility] ADAMES RITTMAN (SWRLAB)[address] Urea nitrogen [Mass/Vol] 34 mg/dL High 9-23 [facility] Comment on above: Performed By: #### L AB17, LPD082, LAB99 ####Improvement Auditor: VELMA VALADEZ ([id number])[facility] SYSTEMSim[facility] ADAMES RITTMAN (SWRLAB)[address] ABDOMEN PELVIS WO IV CONT RASTon 08-03-2024 CT ABDOMEN PELVIS WO IV CONTRAST Normal [facility] CT Abdomen and Pelvis WO con traston 08-03-2024 1. Extensive colonic diverticulosis without evidence of diverticulitis 2. Consolidation in the medial left lower lobe, possibly pneumonia 3. No bowel dilatation Report Dictated on Electronically Signed By: Ming Fry MD Electronically Signed Date/Time: 08/03/2024 4:05 AM EST [email or web address] Patient Name: MEL CARVER RD : 1940 [facility]#: [id number] Exam Date/Time: 08/03/2024 03:05 Procedure: CT ABDOMEN PELVIS WO IV CONTRAST Ordering Provider: KING KATHRYN Reason For Exam: n/v/d, h/o CKD EXAM: CT Abdomen and Pelvis Without Intravenous Contrast CLINICAL INDICATION: n/v/d, h/o CKD Incontinence of stool. TECHNIQUE: Axial computed tomography images of the abdomen and pelvis without intravenous contrast. Sagittal and coronal reformatted images were created and reviewed. This CT exam was performed using one or more of the following dose reduction techniques: automated exposure control, adjustment of the mA and/or kV according to patient size, and/or use of iterative reconstruction technique. COMPARISON: CTA from 04/03/2024 FINDINGS: Lung bases: Consolidation within the medial left lower lung base over region of up to 7 cm may correspond to pneumonia. No other abnormality the right lung base. Mediastinum: Small hiatus hernia measures up to 4 cm. Liver: Calcified granulomas within the liver without other hepatic abnormality on this noncontrast examination. Gallbladder and bile ducts: Unremarkable. No calcified stones. No ductal dilation. Pancreas: Unremarkable as visualized. Spleen: Splenic granulomas without other splenic abnormality. Adrenals: Unremarkable. No nodule. Kidneys and ureters: Fluid attenuation cysts within the right kidney, not requiring follow-up. No other renal abnormality. Stomach and bowel: Extensive colonic diverticulosis without findings to suggest acute diverticulitis. No bowel dilatation. Appendix: No findings to suggest acute appendicitis. Bladder: Unremarkable. No stones. Reproductive: Unremarkable as visualized. Intraperitoneal space: Unremarkable. No free air. No significant fluid collection. Bones/joints: No acute fracture. Soft tissues: Serpiginous vessels noted within the anterior abdominal wall. Vasculature: An inferior vena cava filter device is identified. Dense atherosclerotic calcification of the aorta and iliac arteries with normal caliber. No abdominal aortic aneurysm. Lymph nodes: Unremarkable. No enlarged lymph nodes. [facility] [employer] Ming Fry MD - 08/03/2024 [facility]: [facility] POP : 1940 [id number] Exam Date/Time: 08/03/2024 03:05 Procedure: CT ABDOMEN PELVIS WO IV CONTRAST Ordering Provider: KING KATHRYN Reason For Exam: n/v/d, h/o CKD EXAM: CT Abdomen and Pelvis Without Intravenous Contrast CLINICAL INDICATION: n/v/d, h/o CKD Incontinence of stool. TECHNIQUE: Axial computed tomography images of the abdomen and pelvis without intravenous contrast. Sagittal and coronal reformatted images were created and reviewed. This CT exam was performed using one or more of the following dose reduction techniques: automated exposure control, adjustment of the mA and/or kV according to patient size, and/or use of iterative reconstruction technique. COMPARISON: CTA from 04/03/2024 FINDINGS: Lung bases: Consolidation within the medial left lower lung base over region of up to 7 cm may correspond to pneumonia. No other abnormality the right lung base. Mediastinum: Small hiatus hernia measures up to 4 cm. Liver: Calcified granulomas within the liver without other hepatic abnormality on this noncontrast examination. Gallbladder and bile ducts: Unremarkable. No calcified stones. No ductal dilation. Pancreas: Unremarkable as visualized. Spleen: Splenic granulomas without other splenic abnormality. Adrenals: Unremarkable. No nodule. Kidneys and ureters: Fluid attenuation cysts within the right kidney, not requiring follow-up. No other renal abnormality. Stomach and bowel: Extensive colonic diverticulosis without findings to suggest acute diverticulitis. No bowel dilatation. Appendix: No findings to suggest acute appendicitis. Bladder: Unremarkable. No stones. Reproductive: Unremarkable as visualized. Intraperitoneal space: Unremarkable. No free air. No significant fluid collection. Bones/joints: No acute fracture. Soft tissues: Serpiginous vessels noted within the anterior abdominal wall. Vasculature: An inferior vena cava filter device is identified. Dense atherosclerotic calcification of the aorta and iliac arteries with normal caliber. No abdominal aortic aneurysm. Lymph nodes: Unremarkable. No enlarged lymph nodes. IMPRESSION: 1. Extensive colonic diverticulosis without evidence of diverticulitis 2. Consolidation in the medial left lower lobe, possibly pneumonia 3. No bowel dilatation Report Dictated on Electronically Signed By: Ming Fry MD Electronically Signed Date/Time: 08/03/2024 4:05 AM EST [facility] Radiology Study observation (narrative) Inna Kemp alth CT Abdomen and Pelvis WO con trastOrdered By: Ming Fry on 08-03-2024 [facility] Work Phone: Comprehensive metabolic 1998 panelon 08-03-2024 Albumin [Mass/Vol] 2.8 g/dL Low 3.4 - 4.8 g/dL [facility] ALP [Catalytic activity/Vol] 82 U/L 40 - 150 U/L [facility] ALT [Catalytic activity/Vol] 26 U/L NINF - 30 U/L [facility] Anion gap [Moles/Vol] 9 mmol/L 3 - 13 mmol/L [facility] AST [Catalytic activity/Vol] 36 U/L [facility] U/L [facility] Comment on above: TC Significant interference from hemolysis. Result integrity compromised. Interpret with caution. Bilirubin [Mass/Vol] 0.7 mg/dL NINF - 1.2 mg/dL [facility] Calcium [Mass/Vol] 9 mg/dL 8.8 - 10. 0 mg/dL [facility] Chloride [Moles/Vol] 109 mmol/L High 98 - 10 7 mmol/L [facility] CO2 [Moles/Vol] 21 mmol/L Low 23 - 31 mmol/L [facility] Creatinine [Mass/Vol] 1.3 mg/dL High 0.57 - 1.11 mg/dL [facility] GFR/1.73 sq M.predicted (S/P/Bld) [Vol rate/Area] 40.6 mL/min Low - PINF [facility] Comment on above: Calculation based on the Chronic Kidney Disease Epidemiology Collaboration (CKD-EPI) equation refit without adjustment for race Glucose [Mass/Vol] 103 mg/dL 82 - 115 mg/dL [facility] Interpretation and review of laboratory results Abnormal [facility] Potassium [Moles/Vol] 5.9 mmol/L High 3.5 - 5.1 mmol/L [facility] Comment on above: TC Significant interference from hemolysis. Result integrity compromised. Interpret with caution. Protein [Mass/Vol] 6.7 g/dL 6.4 - 8.3 g/dL [facility] Comment on above: TC Potential interference from hemolysis Sodium [Moles/Vol] 139 mmol/L 136 - 145 mmol/L [facility] Urea nitrogen [Mass/Vol] 34 mg/dL High 9 - 23 mg/dL [facility] ED Nursing Noteon 08-03-2024 ED Nursing Note Pt placed in roundtrip Normal [facility] ED Nursing Note ED CT and ED xray notified that patient is ready Normal [facility] ED Provider Noteon ED Provider Note Normal [facility] GASTROINTESTINAL PCR PANELon 08-03-2024 GASTROINTESTINAL PCR PANEL Normal [facility] Comment on above: Performed By: #### L [id number] ####Improvement Auditor: VELMA VALADEZ ([phone])[facility] (SACLAB)[address] [place] [address] Gastrointestinal pathogens p masoud OXANA+probe (Stl)Ordered By: Maximus Dimas on 08-03-2024 Adenovirus F 40/41 Not detected Not Detected [facility] Astrovirus Not detected Not Detected [facility] Campylobacter Not detected Not Detected [facility] Cryptosporidium Not detected Not Detected [facility] Cyclospora cayetanensis Not detected Not Detected [facility] Entamoeba histolytica Not detected Not Detected [facility] Enterotoxigenic E coli (ETEC) Not detected Not Detected [facility] Giardia lamblia Not detected Not Detected [facility] Interpretation and review of laboratory results Abnormal [facility] Norovirus GI/GII Detected Abnormal Not Detected [facility] Plesiomonas shigelloides Not detected Not Detected [facility] Rotavirus A Not detected Not Detected [facility] Salmonella Not detected Not Detected [facility] Sapovirus Not detected Not Detected [facility] Shiga toxin-producing E coli (STEC) Not detected Not Detected [facility] Shigella/Enteroinvasive E coli (EIEC) Not detected Not Detected [facility] Vibrio cholerae Not detected Not Detected [facility] Vibrio species Not detected Not Detected [facility] Yersinia enterocolitica Not detected Not Detected [facility] A positive Norovirus result on the Film Array GI panel should be interpreted in the context of the patient's history and clinical picture. If results are not consistent, result should be confirmed with a Norovirus specific assay. Methodology: Multiplex PCR [facility] LACTIC ACID WITH REFLEXon Lactate [Moles/Vol] 1.9 mmol/L Normal 0.5-2.2 [facility] Comment on above: Performed By: #### L [id number] ####Improvement Auditor: VELMA VALADEZ ([phone])[facility] (SAC[facility])[address] [place] [address] LIPASEon 08-03-2024 Lipase [Catalytic activity/Vol] 8 U/L Normal <55 [facility] Comment on above: Performed By: #### L AB17, [id number], LAB99 ####Improvement Auditor: VELMA VALADEZ ([phone])[facility] (SWRLAB)[address] [place] [address] Laboratory - Chemistry and C hemistry - challengeon 08-03-2024 Lactate [Moles/Vol] 1.9 mmol/L 0.5 - 2. 2 mmol/L [facility] Anion gap (Bld) [Moles/Vol] 8 mmol/L 3.00 - 13.00 [facility] Calcium.ionized (Bld) [Moles/Vol] 4.7 mg/dl 4.30 - 5.20 mg/dl [facility] Chloride [Moles/Vol] 107 mmol/L 98 - 11 4 mmol/L [facility] CO2 [Moles/Vol] 23 mmol/L 21 - 29 mmol/L [facility] Creatinine [Mass/Vol] 1.3 mg/dL 0.6 - 1.3 mg/dL [facility] GFR/1.73 sq M.predicted CKD-EPI (S/P/Bld) [Vol rate/Area] 40.6 [facility] Comment on above: KDIGO guidelines pro vide the following GFR categories: Stage GFR (ml/min/1.73 m2) Terms G1 >=90 Normal or high G2 60-89 Mildly decreased* G3a 45-59 Mildly to moderately decreased G3b 30-44 Moderately to severely decreased G4 15-29 Severely decreased G5 <15 Kidney failure *Relative to young adult level. In the absence of evidence of kidney damage, neither GFR category G1 nor G2 fulfill the criteria for CKD. The CKD-EPI equation is validated in individuals 18 years of age and older. Currently the best equation for estimating glomerular filtration rate (GFR) from serum creatinine in children is the Bedside Pena equation. It is less accurate in patients with extremes of muscle mass, restriction of dietary protein, ingestion of creatine, extra-renal metabolism of creatinine, or treatment with medications that affect renal tubular creatinine secretion. Glucose [Mass/Vol] 118 mg/dL High 70 - 100 mg/dL [facility] Potassium [Moles/Vol] 4.3 mmol/L 3.4 - 5.1 mmol/L [facility] Sodium [Moles/Vol] 138 mmol/L 133 - 145 mmol/L [facility] Urea (Bld) [Mass/Vol] 33 mg/dL High 4 - 22 mg/dL [facility] Lipase [Catalytic activity/Vol] 8 U/L NINF - 55 U/L [facility] Magnesium [Mass/Vol] 1.9 mg/dL 1.6 - 2 .6 mg/dL [facility] Laboratory - Microbiology an d Antimicrobial susceptibilityon 08-03-2024 FLUAV RNA OXANA+probe Ql (Resp) Not detected Not Detected [facility] FLUBV RNA OXANA+probe Ql (Resp) Not detected Not Detected [facility] RSV RNA OXANA+probe Ql (Resp) Not detected Not Detected [facility] SARS-CoV-2 (COVID-19) RNA OXANA+probe Ql (Resp) Not detected Not Detected [facility] SARS-CoV-2 (COVID-19) RNA OXANA+probe Ql (Unsp spec) Methodology: real-time, RT-PCR The SARS-CoV-2, Flu A/B, and RSV Combo assay is intended for in vitro diagnostic use under the FDA Emergency Use Authorization (EUA). This test has not been FDA cleared or approved. In compliance with this authorization, please visit www.fda.gov/media/56021 5/download or www.fda.gov/media/87249 6/download to access the applicable information sheets. [facility] MAGNESIUMon 08-03-2024 Magnesium [Mass/Vol] 1.9 mg/dL Normal 1.6-2.6 [facility] Comment on above: Result Comment: ORDE R COMMENTS:Higher values can be expected in females during menses. Performed By: #### L AB17, [id number], LAB99 ####Improvement Auditor: VELMA VALADEZ ([phone])[facility] (SWRLAB)[address] [place] [address] MANUAL DIFFERENTIALon 2024 BASOPHILS (10*3/UL) IN BLOOD BY MANUAL COUNT 0.0 10*3/uL Normal 0.0-0.2 [facility] Comment on above: Performed By: #### L [id number], [id number] ####Improvement Auditor: VELMA VALADEZ ([phone])[facility] ROSANGELA RITTMAN (SWRLAB)[address] [place] [address] [place] BASOPHILS TOTAL PER COUNTED LEUKOCYTES BY MANUAL COUNT 0 Normal [facility] Comment on above: Performed By: #### Weston [id number], [id number] ####Improvement Auditor: VELMA VALADEZ ([phone])[facility] ROSANGELA RITTMAN (SWRLAB)[address] [place] [address] [place] BASOPHILS/100 LEUKOCYTES IN BLOOD BY MANUAL COUNT 0 % Normal 0-2 [facility] Comment on above: Performed By: #### Weston [id number], [id number] ####Improvement Auditor: VELMA VALADEZ ([phone])[facility] ROSANGELA RITTMAN (SWRLAB)[address] [place] [address] [place] CELLS COUNTED TOTAL (#) IN BLOOD 100 Normal [facility] Comment on above: Performed By: #### Weston [id number], [id number] ####Improvement Auditor: VELMA VALADEZ ([phone])[facility] ROSANGELA RITTMAN (SWRLAB)[address] [place] [address] [place] DIFFERENTIAL METHOD Automated differenti al reported after manual slide review Normal [facility] Comment on above: Performed By: #### [place] [id number], [id number] ####Improvement Auditor: VELMA VALADEZ ([phone])[facility] ROS[facility]ELA [facility] (SWRLAB)[address] [place] [address] [place] EOSINOPHILS (10*3/UL) IN BLOOD BY MANUAL COUNT 0.1 10*3/uL Normal 0.0-0.5 [facility] Comment on above: Performed By: #### L [id number], [id number] ####Improvement Auditor: VELMA VALADEZ ([phone])[facility] (SWRLAB)[address] [place] [address] [place] EOSINOPHILS TOTAL PER COUNTED LEUKOCYTES BY MANUAL COUNT 1 Normal 0-1 [facility] Comment on above: Performed By: #### L [id number], [id number] ####Improvement Auditor: VELMA VALADEZ ([phone])[facility] ROSANGELA RITTMAN (SWRLAB)[address] [place] [address] [place] EOSINOPHILS/100 LEUKOCYTES IN BLOOD BY MANUAL COUNT 1 % Normal 0-6 [facility] Comment on above: Performed By: #### L [id number], [id number] ####Improvement Auditor: VELMA VALADEZ ([id number])[facility] (SWRLAB)[address] [place] [address] [place] LEUKOCYTE MORPHOLOGY FINDING IN BLOOD Normal Normal [facility] Comment on above: Performed By: #### L [id number], [id number] ####Improvement Auditor: VELMA VALADEZ ([phone])[facility] (SWRLAB)[address] [place] [address] [place] LEUKOCYTES (10*3/UL) NUCLEATED ERYTHROCYTE ADJUST 9.1 10*3/uL Normal 3.6-10.7 [facility] Comment on above: Performed By: #### L [id number], [id number] ####Improvement Auditor: VELMA VALADEZ ([phone])[facility] (SWRLAB)[address] [place] [address] [place] LYMPHOCYTES (10*3/UL) IN BLOOD BY MANUAL COUNT 0.5 10*3/uL Low 1.0-4.3 [facility] Comment on above: Performed By: #### L [id number], [id number] ####Improvement Auditor: VELMA VALADEZ ([phone])[facility] (SWRLAB)[address] [place] [address] [place] LYMPHOCYTES TOTAL PER COUNTED LEUKOCYTES BY MANUAL COUNT 5 Normal [facility] Comment on above: Performed By: #### L [id number], [id number] ####Improvement Auditor: VELMA VALADEZ ([id number])[facility] (SWRLAB)[address] [place] [address] [place] LYMPHOCYTES/100 LEUKOCYTES IN BLOOD BY MANUAL COUNT 5 % Low 15-45 [facility] Comment on above: Performed By: #### L [id number], [id number] ####Improvement Auditor: VELMA VALADEZ ([id number])[facility] (SWRLAB)[address] [place] [address] [place] MONOCYTES (10*3/UL) IN BLOOD BY MANUAL COUNT 0.5 10*3/uL Normal 0.0-0.9 [facility] Comment on above: Performed By: #### L [id number], [id number] ####Improvement Auditor: VELMA VALADEZ ([id number])[facility] ADAMES RITTMAN (SWRLAB)[address] [place] [address] [place] MONOCYTES TOTAL PER COUNTED LEUKOCYTES BY MANUAL COUNT 6 Normal [facility] Comment on above: Performed By: #### L [id number], [id number] ####Improvement Auditor: VELMA VALADEZ ([id number])[facility] SYSTEM[facility] SANCHEZROSANGELA RITTMAN (SWRLAB)[address] [place] [address] [place] MONOCYTES/100 LEUKOCYTES IN BLOOD BY MANUAL COUNT 6 % Normal 5-13 [facility] Comment on above: Performed By: #### L [id number], [id number] ####Improvement Auditor: VELMA VALADEZ ([phone])[facility] ADAMES [facility]IT[facility]AN (SWRLAB)[address] [place] [address] [place] NEUTROPHILS (SEGS+BANDS) (10*3/UL) BY MANUAL COUNT 7.9 10*3/uL High 1.8-7.0 [facility] Comment on above: Performed By: #### L [id number], [id number] ####Improvement Auditor: VELMA VALADEZ ([phone])[facility] SANCHEZROSANGELA RITTMAN (SWRLAB)[address] [place] [address] [place] NEUTROPHILS TOTAL PER COUNTED LEUKOCYTES BY MANUAL COUNT 87 Normal [facility] Comment on above: Performed By: #### L [id number], [id number] ####Improvement Auditor: VELMA VALADEZ ([phone])[facility] ROSANGELA RITTMAN (SWRLAB)[address] [place] [address] [place] PLATELET MORPHOLOGY IN BLOOD Normal Normal [facility] Comment on above: Performed By: #### L [id number], [id number] ####Improvement Auditor: VELMA VALADEZ ([id number])TIFFANYA ROSANGELA RITTMAN (SWRLAB)[address] [place] [address] [place] RBC MORPHOLOGY IN BLOOD Normal Normal [facility] Comment on above: Performed By: #### L [id number], [id number] ####Improvement Auditor: VELMA VALADEZ ([id number])[facility] ROS[facility]ELA [facility]ITTMAN (SWRLAB)[address] [place] [address] [place] SEGEMENTED NEUTROPHILS/100 LEUKOCYTES BY MANUAL COUNT 87 % High 38-82 [facility] Comment on above: Performed By: #### L [id number], [id number] ####Improvement Auditor: VELMA VALADEZ ([phone])[facility]A [facility]TM[facility] (SWRLAB)[address] [place] [address] [place] UNCLASSIFIED CELLS (10*3/UL) IN BLOOD BY MANUAL COUNT 0.1 10*3/uL Normal [facility] Comment on above: Performed By: #### L [id number], [id number] ####Improvement Auditor: VELMA VALADEZ ([id number])[facility]A [facility]TMAN (SWRLAB)[address] [place] [address] [place] UNCLASSIFIED CELLS/100 LEUKOCYTES IN BLOOD 1.00 % Normal [facility] Comment on above: Performed By: #### L [id number], [id number] ####Improvement Auditor: VELMA VALADEZ ([phone])[facility] (SWRLAB)[address] [place] [address] [place] Magnesium [Mass/Vol]on 08-03 Higher values can be expected in females during menses. [facility] Manual differential performe d Ql (Bld)on 08-03-2024 Basophils (Bld) [#/Vol] 0 10*3/uL 0.0 - 0.2 10*3/uL [facility] Basophils Manual 0 [facility] Basophils/100 WBC (Bld) 0 % 0 - 2 % [facility] Cells Counted Total (Bld) [#] 100 {cells} [facility] Differential Method Automated differenti al reported after manual slide review [facility] Eosinophils (Bld) [#/Vol] 0.1 10*3/uL 0.0 - 0.5 10*3/uL [facility] Eosinophils Manual 1 0 - 1 [facility] Eosinophils/100 WBC (Bld) 1 % 0 - 6 % [facility] Leukocyte morphology finding Nom (Bld) Normal [facility] Lymphocytes (Bld) [#/Vol] 0.5 10*3/uL Low 1.0 - 4.3 10*3/uL [facility] Lymphocytes Manual 5 [facility] Lymphocytes/100 WBC (Bld) 5 % Low 15 - 45 % [facility] Monocytes (Bld) [#/Vol] 0.5 10*3/uL 0.0 - 0.9 10*3/uL [facility] Monocytes Manual 6 [facility] Monocytes/100 WBC (Bld) 6 % 5 - 13 % [facility] Neutrophils (Bld) [#/Vol] 7.9 10*3/uL High 1.8 - 7.0 10*3/uL [facility] Neutrophils Manual 87 [facility] Platelet morphology finding Nom (Bld) Normal [facility] RBC morphology finding Nom (Bld) Normal [facility] Segmented neutrophils/100 WBC (Bld) 87 % High 38 - 82 % [facility] Unclassified Cells % 1 % [facility] Unclassified Cells, Abs. 0.1 10*3/uL [facility] WBC corrected for nucl RBC (Bld) [#/Vol] 9.1 10*3/uL 3.6 - 10.7 10*3/uL [facility] No Panel Informationon 08-03 Interpretation and review of laboratory results Normal [facility] Interpretation and review of laboratory results Abnormal [facility] Performed by: [facility], [address] [place] [address] CLIA ID: [id number] [facility] Interpretation and review of laboratory results Normal [facility] No Panel InformationOrdered By: Christin Mayes on 08-03-2024 Interpretation and review of laboratory results Abnormal [facility] SARS-COV-2, FLU A/B, AND RSV COMBOon 08-03-2024 SARS-CoV-2 (COVID-19) RNA OXANA+probe Ql (Unsp spec) Normal [facility] Comment on above: Performed By: #### L [id number] ####Improvement Auditor: VELMA VALADEZ ([phone])[facility] (SWRLAB)[address] [place] [address] SARS-CoV-2, Flu A/B, and RSV Comboon 08-03-2024 Interpretation and review of laboratory results Normal [facility] XR Chest Single viewon 08-03 No acute abnormality Report Dictated on Electronically Signed By: Ming Fry MD Electronically Signed Date/Time: 08/03/2024 3:33 AM EST [facility] [employer] Patient Name: MEL CARVER RD : 1940 Exam Date/Time: 08/03/2024 02:53 Procedure: XR CHEST 1 VIEW Ordering Provider: KING KATHRYN Reason For Exam: cough EXAM: XR Chest, 1 View CLINICAL INDICATION: cough TECHNIQUE: Frontal view of the chest. COMPARISON: 04/09/2024 FINDINGS: Lungs and pleural spaces: Calcified granuloma in the left upper lobe. No consolidation or atelectasis. Heart: Unremarkable. No cardiomegaly. Mediastinum: Uncoiling of aorta with atherosclerotic calcification. Bones/joints: Metallic fixation within the right humerus. No acute fracture. [facility] Ming Fry MD - 08/03/2024 Patient Name: MEL POP : 1940 Exam Date/Time: 08/03/2024 02:53 Procedure: XR CHEST 1 VIEW Ordering Provider: KING KATHRYN Reason For Exam: cough EXAM: XR Chest, 1 View CLINICAL INDICATION: cough TECHNIQUE: Frontal view of the chest. COMPARISON: 04/09/2024 FINDINGS: Lungs and pleural spaces: Calcified granuloma in the left upper lobe. No consolidation or atelectasis. Heart: Unremarkable. No cardiomegaly. Mediastinum: Uncoiling of aorta with atherosclerotic calcification. Bones/joints: Metallic fixation within the right humerus. No acute fracture. IMPRESSION: No acute abnormality Report Dictated on Electronically Signed By: Ming Fry MD Electronically Signed Date/Time: 08/03/2024 3:33 AM EST [employer] Radiology Study observation (narrative) [facility] XR Chest Single viewOrdered By: Ming Fry on 08-03-2024 [employer] Work Phone: ANES POSTPROC EVALon 025 ANES POSTPROC EVAL HNO ID: [id number] Author: ROBINSON BRUNNER MD Service: ? Author Type: Anesthesiologist Type: Anesthesia Postprocedure Evaluation Filed: 07/31/2024 12:48 Note Text: POST ANESTHESIA EVALUATION NOTE : 1940 Procedure Summary Date: 07/27/24 Room / Location: [address] Anesthesia Start: 1114 Anesthesia Stop: 1322 Procedures[facility] W/ REMOVAL OF PRERETINAL CELLULAR MEMBRANE (Right: Eye) RELEASE OF VITREOUS, CHOROIDAL FLUID, PARS PLANA APPROACH (Right: Eye) Diagnosis: Hemorrhagic choroidal detachment of right eye (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]) Surgeons: Savana Lopez MD Responsible Provider: Robinson Brunner MD Anesthesia Type: general ASA Status: 3 Anesthesia Type: general Airway Type: LMA Last Vitals Vitals Value Taken Time BP 167/72 07/27/24 1409 Temp 36.8 ?C (98.2 ?F) 07/27/24 1352 Pulse 75 07/27/24 1409 Resp 16 07/27/24 1409 SpO2 96 % 07/27/24 1409 Post Anesthesia Patient Status Patient Evaluation: PACU. PACU/ICU Patient Condition: stable. Anticipated Disposition: phase 2 then home. Neurological Status: aware and responsive. Pulmonary Status: breathing comfortably on room air Airway Control: returned to baseline unsupported. Cardiovascular Status: stable. Pain Management: clinically adequate - multimodal analgesia pain management approach Postoperative Hydration: acceptable. Intraoperative Events: no significant anesthesia events Post Operative Nausea/Vomiting Status: no significant post operative nausea or vomiting Recommendation: continue current plan of care. Anesthesia Observations No notable events were associated with this procedure. Documented by Mikhail Nichols APRN.REVENUE FIELD AUDITOR 07/27/2024 1:22 PM EST SIGNATURE: Robinson Pizano MD PATIENT NAME: Mel Castillo DATE: July 31, 2024 TIME: 12:46 PM CSN: [id number] Normal [facility] ANES PRE-OPon 07-27-2024 ANES PRE-OP HNO ID: [id number] Author: ROBINSON BRUNNER MD Service: ? Author Type: Anesthesiologist Type: Anesthesia Preprocedure Evaluation Filed: 07/27/2024 11:10 Note Text: ANESTHESIOLOGY DAY OF SURGERY NOTE : 1940 Procedure Information Date/Time: 07/27/24 1110 Procedures: VITRECTOMY 25G [facility] PARS PLANA APPROACH W/ REMOVAL OF PRERETINAL CELLULAR MEMBRANE (Right: Eye) RELEASE OF VITREOUS, CHOROIDAL FLUID, PARS PLANA APPROACH (Right: Eye) Location: [place] [address] / [facility] Surgeons: Savana Lopez MD Estimated body mass index is 26.09 kg/m? as calculated from the following: Height as of 07/15/24: 162.6 cm (5' 4"). Weight as of 07/15/24: 68.9 kg (152 lb). 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 There is no evidence of intracardiac shunting as detected by agitated saline contrast. - The left ventricle is small. Left ventricular systolic function is normal. EF = 60 ? 5% (2D 4-ch.) - The right ventricle is normal in size. Right ventricular systolic function is normal. 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 - Suboptimal agitated saline study attempted x3 (clips 34, 37, 38). Appears negative, no obvious bubbles seen on left side. I - PHYSICAL EVALUATION AIRWAY Patient intubated: No. Tracheostomy tube not present Mallampati: II. TM distance: >3 FB. Neck ROM: full ROM without neurological symptoms. Mouth opening: adequate. Short neck: no. Thick neck: no DENTAL Dental findings: edentulous. Dentures, upper: complete. Dentures, lower: complete. II - ANESTHESIA PLAN ASA Score: 3 Anesthetic Plan: general Airway type: LMA NPO Status: adequate Beta Essie Monitoring Plan Monitoring plan: standard ASA. Post Procedure Analgesic Plan Postoperative analgesic plan: multimodal analgesia and per surgical service. Informed Consent Anesthetic risks, benefits, alternatives, personnel and consent discussed: yes. Patient / Responsible Constitution Party agrees to proceed: yes Patient / Surrogate agrees to blood products: blood products not planned Significant changes in the patient condition since the History and Physical, not otherwise documented in primary service progress note: no. Potential Anesthesia issues that may suggest increased risk of complications or contraindication to planned procedure: none. Vitals Value Taken Time BP 170/70 07/27/24 1040 Pulse 65 07/27/24 1040 Resp 16 07/27/24 1040 Temp 36.2 ?C (97.1 ?F) 07/27/24 1040 SpO2 99 % 07/27/24 1040 No current facility-administered medications on file as of 07/27/2024. Outpatient Medications as of 07/27/2024 Medication Sig acetaminophen (TYLENOL) 325 mg tablet Take 2 tablets by mouth every 6 hours. albuterol HFA (PROVENTIL HFA, VENTOLIN HFA) 90 mcg/actuation inhaler Inhale 2 Puffs as instructed every 6 hours as needed for wheezing/shortness of breath. ascorbic acid, vitamin C, (VITAMIN C) 500 mg tablet Take 1 tablet by mouth three times a day. lidocaine (SALONPAS) 4 % patch Apply 1 Patch as directed once daily. lisinopril (ZESTRIL) 40 mg tablet Take 1 tablet by mouth once daily. prednisoLONE acetate (PRED FORTE) 1 % ophthalmic suspension Use 1 Drop in the right eye four times daily. apixaban (ELIQUIS) 5 mg tab(s) Take 1 tablet by mouth two times a day. atropine 1 % ophthalmic solution Use 1 Drop in the right eye once daily. [] HYDROmorphone (DILAUDID) 0.5 mg/0.5 mL injection Inject 0.2 mL intravenously every 2 hours as needed for up to 7 days. [] HYDROmorphone (DILAUDID) 2 mg tablet Take 0.5 tablets by mouth every 4 hours as needed for up to 7 days. metoprolol succinate ER (TOPROL XL) 25 mg 24 hr tablet Take 1 tablet by mouth once daily. mometasone (ASMANEX) 220 mcg/ actuation (14) aepb Inhale 1 Puff as instructed once daily. tiotropium 2.5 (more content not included)... Normal [facility] OPERATIVE NOon 07-27-2024 OPERATIVE NO HNO ID: [id number] Author: SAVANA LOPEZ MD Service: Ophthalmology Author Type: Physician Type: Operative Report Filed: 07/27/2024 13:20 Note Text: [place] [address] [place] [facility] OPERATIVE REPORT LOG ID: [id number] Surgery/Procedure Date: 07/27/2024 Incision/Procedure Start Time: 11:39 AM Incision Close/Procedure End Time: 1:07 PM NAME: Mel Pop [facility] #: [id number] SURGEON(S) AND CHIEF LIBRARIAN EXTENSION DEPARTMENT(S): Surgeons and Role: Panel 1: * Savana Lopez MD - Primary * Nicolas Sahu MD - Fellow Panel 2: * Savana Lopez MD - Primary ANESTHESIA: General with retrobulbar block PREOPERATIVE DIAGNOSIS: 1. Complex rhegmatogenous retinal detachment with PVR, right eye 2. Hemorrhagic choroidals, right eye POSTOPERATIVE DIAGNOSIS: Same OPERATION: 1. 25 gauge pars plana vitrectomy, choroidal drainage, perfluorocarbon, membrane peel, endolaser 532um, fluid-air exchange with 16% C3F8 gas, right eye OPERATIVE INDICATIONS: This is a(n) 83 year old female presenting with a complex rhegmatogenous retinal detachment with complex PVR and hemorrhagic choroidals in the right eye requiring surgery for the rehabilitation of vision and a cataract which is visually significant and necessitates removal due to vision, to adequately visualize the fundus/posterior pole during surgery and the need for adequate dissection of the vitreous base for far peripheral vitreoretinal dissection. The risks/benefits/alternat camron/complications were discussed with the patient/legal guardian who agreed to proceed. All questions were answered. Written informed consent was obtained. OPERATIVE PROCEDURE: After proper informed consent was obtained, the patient was brought to the operating room, where appropriate monitoring leads were placed on their body by the anesthesia team, who were present during the entire case. A retrobulbar block consisting of 8 mL injection of 0.75% Marcaine mixed 50:50 with 2% lidocaine with wydase was instilled. The patient's face was prepped and draped in the usual sterile fashion. A wire lid speculum was placed in the eye. Next, a surgical timeout was performed and the surgical site and procedure were confirmed by all personnel. A superior peritomy was created. A paracentesis was created and an AC maintainer was placed and IOP increased to 60 mmHg. Two choroidal drainage sites 4.0 mm posterior to the limbus with a 20 gauge MVR blade were created and hemorrhage was expressed. The AC maintainer was removed. Using a 25 gauge vitrectomy system, trocars were used to place transcleral cannulas 3.5 mm from the limbus in the superotemporal, inferotemporal, and superonasal quadrants. The inferotemporal cannula was a 6.0 mm infusion cannula. A primed infusion line was secured to the inferotemporal cannula with the tip visualized directly in the vitreous cavity prior to the initiation of infusion. A wide field viewing system showed dense vitreous hemorrhage and significant choroidals with overlying superior retinal break. Using a micro-vitrectomy cutter and an endoilluminating light pipe, a core pars plana vitrectomy was performed with removal of vitreous up to the vitreous base 360 degrees. The posterior hyaloid was already detached. Attention was turned to the premacular portion of procedure. The PVR retinal detachment was repaired by the use of max professor of art history forceps and vitreous cutter. This was a complicated process involving meticulous removal of multiple areas of PVR membranes in order to get the retina to lay flat. During removal of the membranes retinal breaks were found. The retinal breaks were marked with diathermy and surrounded by 532 nm endolaser PFO was injected to flatten the retina. The choroidals were still significant and further hemorrhage was attempted to be drain with external drainage device and a more posterior cut down but was minimally successful. The PFO was removed and a fluid-air exchange was performed. 532 nm endolaser was used to treat the retinal breaks with good uptake as it was resting on the choroidal. A fluid-air exchange followed by an air-gas exchange was performed with 16% C3F8 gas. The cannulas were sequentially removed. The superotemporal, superonasal, and inferotemporal sclerotomy wounds were sutured with 6-0 plain suture. 6-0 plain suture was used to approximate the conjunctiva. Normal intraocular pressure was noted with globe palpation. Subconjunctival injections of antibiotic and dexamethasone were given prior to removal of the lid speculum. The speculum was removed and the drapes were removed. The eye was cleaned and patched with a [place] shield after maxitrol ointment was instilled. The patient was awakened and taken to the recovery room in stable condition having tolerated the procedure well. There were no complications. We will see the patient back in 1 days time. At all times thro (more content not included)... Normal [facility] BSCAN OD (RIGHT EYE)on 07-24 [facility] Right eye Photo documentatio non 07-24-2024 [facility] BSCAN OD (RIGHT EYE)on 07-23 Radiology Study observation [facility]narrative[facility] Right eye Photo documentatio non 07-23-2024 Radiology Study observation (narrative) [facility] CASE MANAGEMon 07-18-2024 CASE MANAGEM HNO ID: [id number] Author: DOMINIQUE RAMSAY LSW Service: ? Author Type: Grinding Wheel Facer Type: Care Mgt Progress Note Filed: 07/18/2024 11:21 Note Text: CARE MANAGEMENT DISCHARGE NOTE SERVICE DATE: July 18, 2024 SERVICE TIME: 11:19 AM Admission Date: 07/07/2024 LOS: 11 days Discharge Arrangement Discharge Arrangement: Intermediate Facility Services Arranged Medical Services: Other: See Comment (N/A) Caregiver Assessment Caregiver is ready, willing and able to meet the patient's needs as recommended by the inter-professional team: Yes Name of Caregiver: Rosangela Tomlin Transportation Arrangements Transportation Arrangements: Ambulance Transportation Agency and Phone #:: [facility] [phone] Date of Trip: 07/18/24 Time of Trip: 1100 Type of Service: BLS Non-emergency Handoff Communication: Handoff to: Primary Care Physician Primary Care Physician Name/Phone: Jared Evans Additional Information: Discharge Information Row Name Admission (Current) from 07/07/2024 in HOSP MAIN H060 [place] [address] Patient d/c ready to [facility] via [facility] with leaf size picker scheduled for 11am today by Stretcher. Patient aware of plan. Bedside RN aware of plan and provided number to call report for nurse report; call [phone] :) Mental Measurements Teacher can transfer you to the 2nd floor. . 7000 and DC instructions sent to [facility] via [employer] and are in DC packet. DC packet in chart to go with patient. SIGNATURE: SHAQUILLE Garay PATIENT NAME: Mel Castillo DATE: July 18, 2024 TIME: 11:19 AM Normal [facility] CBC panel Auto (Bld)on 07-18 Erythrocyte distribution width (RBC) [Ratio] 17.5 % High 11.5-15.0 [facility] Comment on above: Order Comment: Speci men Type: BLOOD SPECIMEN Ordering Facility: [facility] Address: [address] [place] [address] Performed By: #### 5 8410-2 #### [facility] CLIA [id number] [address] [place] [address] [place] Hematocrit (Bld) [Volume fraction] 33.8 % Low 36.0-46.0 [facility] Comment on above: Order Comment: Speci men Type: BLOOD SPECIMEN Ordering Facility: [facility] Address: [address] [place] [address] Performed By: #### 5 8410-2 #### [facility] CLIA [id number] [address] [place] [address] [place] Hemoglobin (Bld) [Mass/Vol] 10.5 g/dL Low 11.5-15.5 [facility] Comment on above: Order Comment: Speci men Type: BLOOD SPECIMEN Ordering Facility: [facility] Address: [address] [place] [address] Performed By: #### 5 8410-2 #### [facility] CLIA [id number] [address] [place] [address] [place] MCH (RBC) [Entitic mass] 26.0 pg Normal 26.0-34.0 [facility] Comment on above: Order Comment: Speci men Type: BLOOD SPECIMEN Ordering Facility: [facility] Address: [address] [place] [address] Performed By: #### 5 8410-2 #### [facility] CLIA [id number] [address] [place] [address] [place] MCHC (RBC) [Mass/Vol] 31.1 g/dL Normal 30.5-36.0 [facility] Comment on above: Order Comment: Speci men Type: BLOOD SPECIMEN Ordering Facility: [facility] Address: [address] [place], [place] [address] Performed By: #### 5 8410-2 #### [facility] CLIA [id number] [address] [place] [address] [place] MCV (RBC) [Entitic vol] 83.7 fL Normal 80.0-100.0 [facility] Comment on above: Order Comment: Speci men Type: BLOOD SPECIMEN Ordering Facility: [facility] Address: [address] [place] [address] Performed By: #### 5 8410-2 #### [facility] CLIA [id number] [address] [place] [address] [place] Nucleated RBC (Bld) [#/Vol] 10*3/uL Normal <0.01 [facility] Comment on above: Order Comment: Speci men Type: BLOOD SPECIMEN Ordering Facility: [facility] Address: [address] [place] [address] Performed By: #### 5 8410-2 #### [facility] CLIA [id number] [address] [place] [address] [place] Platelet mean volume (Bld) [Entitic vol] 9.3 fL Normal 9.0-12.7 [facility] Comment on above: Order Comment: Speci men Type: BLOOD SPECIMEN Ordering Facility: [facility] Address: [address] [place] [address] Performed By: #### 5 8410-2 #### [facility] CLIA [id number] [address] [place] [address] [place] Platelets (Bld) [#/Vol] 386 10*3/uL Normal 150-400 [facility] Comment on above: Order Comment: Speci men Type: BLOOD SPECIMEN Ordering Facility: [facility] Address: [address] [place] [address] Performed By: #### 5 8410-2 #### [facility] CLIA [id number] [address] [place] [address] [place] RBC (Bld) [#/Vol] 4.04 10*6/uL Normal 3.90-5.20 [facility] Comment on above: Order Comment: Speci men Type: BLOOD SPECIMEN Ordering Facility: [facility] Address: [address] [place] [address] Performed By: #### 5 8410-2 #### [facility] CLIA [id number] [address] [place] [address] [place] WBC (Bld) [#/Vol] 10.81 10*3/uL Normal 3.70-11.00 [facility] Comment on above: Order Comment: Speci men Type: BLOOD SPECIMEN Ordering Facility: [facility] Address: [address] [place] [address] Performed By: #### 5 8410-2 #### [facility] CLIA [id number] [address] [place] [address] [place] CNDSon 07-18-2024 [facility] HNO ID: [id number] Author: BRIANA PRITCHARD MD Service: General Internal Medicine Author Type: Physician Type: Discharge Summary Filed: 07/18/2024 08:53 Note Text: DISCHARGE SUMMARY PATIENT NAME: Mel Castillo ADMISSION DATE: 07/07/2024 DISCHARGE DATE: 07/18/24 ATTENDING PHYSICIAN: Briana Pritchard MD Code Status: DNR-CCA PCP: Jared Evans MD, MD Highest Readmission Risk Score: 32 The 30 day readmissions risk score is derived from an internally validated risk model which evaluates patient level characteristics, utilization history, medication orders and lab results up until the day of discharge. Patients with a score of 40 or above are considered highest risk for readmission. Specific patient level drivers will be listed at the bottom of the summary. TRANSITIONS OF CARE CRITICAL ISSUES: This patient is notably anxious and scared with her recent loss of vision. Pain, anxiousness, worry, and her being scared can lead to worsening of her choroidal hemorrhage. Please comfort this patient and help her to adjust to a new nursing facility with her loss of vision. She should always have access to a nursing call button (potentially as a necklace), and need to get all of her eye drops listed below. It is also critical that she attends all of her opthalmology follow up appointments, next one being 07/23 listed below. [facility] MEDICATION CHANGES: - Continue oral prednisone 20mg - Continue atropine daily right eye - Continue prednisolone QID right eye - Continue Brimonidine TID right eye - Continue Timolol BID right eye - Continue Ciprofloxacin QID right eye (last day 07/18/24) - Please ensure rapid treatment of any nausea, if patient vomits/significantly strains this could result in worsening of her choroidal hemorrhage - No positioning required FOLLOW UP: Future Appointments Date Time Provider Department Center 07/23/2024 10:45 AM Savana Lopez MD [facility] REASON FOR HOSPITALIZATION/PRINCIP AL DIAGNOSES: Acute angle-closure glaucoma of right eye c/b hemorrhagic choroidal detachment HOSPITAL PROBLEMS: Principal Problem: Retinal detachment (POA: Yes) Active Problems: Nicotine use disorder, F17.2 (POA: Yes) Chronic atrial fibrillation (HCC) (POA: Yes) 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 * HOSPITAL COURSE: Mel Castillo is a 83 year old female with a PMH of COPD, HTN, Afib (on Lovenox), CKD Stage 3, L retinal detachment, recurrent embolic events, and most recently a left cerebellar infarct in May 2024 who presents to OSH from [facility] for further evaluation of R acute angle closure glaucoma. Found to have IOP 81 s/p multiple peripheral iridotomies with subsequent improvement in IOP. Subsequently developed worsening pain and vision and underwent optos and B-scan 07/09 showing hemorrhagic choroidal detachment. Ophtho following and started her on PO prednisone and eye drops (atropine, prednisolone, dorzolamide, briminidine, timolol). Her pain was initially well managed, but developed worsening eye pain and vision on 07/12 (patient had found out her sister had on 07/11 and reports crying all day). Re-evaluated by optho and found to have worsening hemorrhagic choroidals s/p vitreous drainage on 07/13 with improvement her symptoms. Opacities mildly mobile on exam; not much but got some drainage 07/13/24 (1 week since onset); may require another surgery for more drainage once opacities more liquefied and PPV with 6 mm cannula. Unfortunately need to wait for more liquefaction. Per optho: she has a very poor prognosis; there is no guarantee surgery will improve her vision but need to wait for any possible surgery for more liquefaction; maybe could do 07/31/24? Optho to re-evaluate in the outpatient setting on 07/23 for repeat B-scan OD / Optos OD. Otherwise she was deemed stable for discharge to SNF due to loss of vision. #Acute closure glaucoma of the R eye #Hemorrhagic choroidal detachment, R eye Woke up with severe eye pain behind right eye with complete loss of vision 07/05. Found to have shallow AC with IOPD of 81 and diagnosed with acute angle-closure glaucoma s/p multiple peripheral iridotomy's performed, with subsequent improvement in intraocular pressure to 37 and improvement in pain. Subsequently developed worsening pain and vision that continued throughout admission although somewhat better pain. Underwent optos/B-scan 07/09 showing hemorrhagic choroidals. B-scan OD 07/16/24 with persistent 360 hemorrhagic choroidals, pockets of mobilization of fluid, more apparent serous RD from 6 to 12. Patient may have developed hemorraghic cho (more content not included)... Normal [facility] Renal function 2000 panelon 07-18-2024 Albumin [Mass/Vol] 3.2 g/dL Low 3.9-4.9 [facility] Comment on above: Order Comment: Speci men Type: BLOOD SPECIMEN Ordering Facility: [facility] Address: [address] [place] [address] Performed By: #### 2 4362-6 #### [facility] CLIA [id number] [address] [place] [address] [place] [address] [place] Anion gap [Moles/Vol] 11 mmol/L Normal 8-15 [facility] Comment on above: Order Comment: Speci men Type: BLOOD SPECIMEN Ordering Facility: [facility] Address: [address] [place] [address] Performed By: #### 2 4362-6 #### [facility] CLIA [id number] [address] [place], [place] [address] [place] Calcium [Mass/Vol] 9.3 mg/dL Normal 8.5-10.2 [facility] Comment on above: Order Comment: Speci men Type: BLOOD SPECIMEN Ordering Facility: [facility] Address: [address] [place], [place] [address] Performed By: #### 2 4362-6 #### [facility] CLIA [id number] [address] [place] [address] [place] Chloride [Moles/Vol] 102 mmol/L Normal 98-107 [facility] Comment on above: Order Comment: Speci men Type: BLOOD SPECIMEN Ordering Facility: [facility] Address: [address] [place], [place] [address] Performed By: #### 2 4362-6 #### [facility] CLIA [id number] [address] [place] [address] [place] CO2 [Moles/Vol] 25 mmol/L Normal 22-30 [facility] Comment on above: Order Comment: Speci men Type: BLOOD SPECIMEN Ordering Facility: [facility] Address: [address] [place], [place] [address] Performed By: #### 2 4362-6 #### [facility] CLIA [id number] [address] [place], [place] [id number] [place] Creatinine [Mass/Vol] 0.90 mg/dL Normal 0.58-0.96 [facility] Comment on above: Order Comment: Speci men Type: BLOOD SPECIMEN Ordering Facility: [facility] Address: [address] [place], [place] [address] Performed By: #### 2 4362-6 #### [facility] CLIA [id number] [address] [place] [address] [place] Creatinine and Glomerular filtration rate.predicted panel (S/P/Bld) 63 mL/min/1.73m??? Normal >=60 [facility] Comment on above: Order Comment: Rhina mason Type: BLOOD SPECIMEN Ordering Facility: [facility] Address: [address] [place] [address] Result Comment: Isa mated Glomerular Filtration Rate (eGFR) is calculated using the 2020 CKD-EPI creatinine equation. This equation utilizes serum creatinine, sex, and age as parameters. The creatinine assay has traceable calibration to isotope dilution-mass spectrometry. Refer to KDIGO guidelines for clinical interpretation. In patients with unstable renal function, e.g. those with acute kidney injury, the eGFR may not accurately reflect actual GFR. Performed By: #### 2 4362-6 #### [facility] CLIA [id number] [address] [place] [address] [place] Glucose [Mass/Vol] 105 mg/dL High 74-99 [facility] Comment on above: Order Comment: Rhina mason Type: BLOOD SPECIMEN Ordering Facility: [facility] Address: [address] [place] [address] Result Comment: The [place] [employer] (ADA) provides guidance for cutoff values for fasting glucose and random glucose. The ADA defines fasting as no caloric intake for at least 8 hours. Fasting plasma glucose results between 100 to 125 mg/dL indicate increased risk for diabetes (prediabetes). Fasting plasma glucose results greater than or equal to 126 mg/dL meet the criteria for diagnosis of diabetes. In the absence of unequivocal hyperglycemia, results should be confirmed by repeat testing. In a patient with classic symptoms of hyperglycemia or hyperglycemic crisis, random plasma glucose results greater than or equal to 200 mg/dL meet the criteria for diagnosis of diabetes. Reference: Standards of Medical Care in Diabetes 2016, [place] [employer]. Diabetes Care. 2016.39(Suppl 1). Performed By: #### 2 4362-6 #### [facility] CLIA [id number] [address] [id number] [address] [place] Phosphate [Mass/Vol] 3.0 mg/dL Normal 2.7-4.8 [facility] Comment on above: Order Comment: Speci men Type: BLOOD SPECIMEN Ordering Facility: [facility] Address: [address] [place] [address] Performed By: #### 2 4362-6 #### [facility] CLIA [id number] [address] [place] [address] [place] Potassium [Moles/Vol] 4.5 mmol/L Normal 3.7-5.1 [facility] Comment on above: Order Comment: Speci men Type: BLOOD SPECIMEN Ordering Facility: [facility] Address: [address] [place] [address] Performed By: #### 2 4362-6 #### [facility] CLIA [id number] [address] [place] [address] [place] Sodium [Moles/Vol] 138 mmol/L Normal 136-144 [facility] Comment on above: Order Comment: Speci men Type: BLOOD SPECIMEN Ordering Facility: [facility] Address: [address] [place] [address] Performed By: #### 2 4362-6 #### [facility] CLIA [id number] [address] [place] [address] [place] Urea nitrogen [Mass/Vol] 17 mg/dL Normal 7-21 [facility] Comment on above: Order Comment: Speci men Type: BLOOD SPECIMEN Ordering Facility: [facility] Address: [address] [place] [address] Performed By: #### 2 4362-6 #### [facility] CLIA [id number] [address] [place] [address] [place] CASE MANAGEMon 07-17-2024 CASE MANAGEM HNO ID: [id number] Author: ?, ?, ? Service: ? Author Type: ? Type: Care Mgt Progress Note Filed: 07/17/2024 14:07 Note Text: CARE MANAGEMENT PROGRESS NOTE SERVICE DATE: 07/17/2024 SERVICE TIME: 2:07 PM LOS: 10 days Discharge packet completed and dropped off by assistant facility manager Tamiko Holley. Packet is missing AVS/DC forms, please reach out to window caser with any discharge related questions. SIGNATURE: Tamiko Holley PATIENT NAME: Mel Castillo DATE: July 17, 2024 TIME: 2:07 PM [facility] CASE MANAGEM HNO ID: [id number] Author: DOMINIQUE RAMSYA LSW Service: ? Author Type: Grinding Wheel Facer Type: Care Mgt Progress Note Filed: 07/17/2024 13:44 Note Text: CARE MANAGEMENT HOLIDAY PLANNING NOTE DISCHARGE OR POSSIBLE DISCHARGE Date/Time: 07/18 at 11am Disposition: Intermediate Facility - Precert Obtained: Yes Facility Name: [facility] Facility Phone #: Transport: Mode of Transportation: Ambulance Transportation Agency and Phone #: [facility] [phone] . Date of Trip: 07/18/2024 at 11am Other Concerns: 11 am DC via [facility] trip# #[id number] to take Pt to [facility] SNF. Pre-cert is approved, a bed is available, and Pt is medically ready. 7000 has been tasked. DC packet has been tasked. DNR form is on green chart. Weekend Soldering Inspector Pager #: Please see Treatment Team for Care Management Weekend/Holiday coverage. SIGNATURE: SHAQUILLE Garay PATIENT NAME: Mel Castillo DATE: July 17, 2024 TIME: 1:42 PM PAGER/CONTACT #: [facility] CASE MANAGEM HNO ID: [id number] Author: BASILIA CAPPS, Mabel Service: ? Author Type: ? Type: Care Mgt Progress Note Filed: 07/17/2024 13:14 Note Text: [facility] PRECERT NOTE [employer] MEDICARE PPO approved Intermediate Facility for [facility] . Precert approved through 07/19/2024. For any additional questions regarding approvals, transport or care management needs, please contact the CM assigned to this patient in the Treatment Team. SIGNATURE: Basilia Kramerimelda DATE: July 17, 2024 TIME: 1:14 PM [facility] CASE MANAGEM HNO ID: [id number] Author: DOMINIQUE RAMSAY LSW Service: General Internal Medicine Author Type: Grinding Wheel Facer Type: Care Mgt Progress Note Filed: 07/17/2024 11:29 Note Text: Attestation signed by Thomas Car DO at 07/17/2024 11:37 AM Thomas Car D.O. PGY-2 Internal Medicine Resident [facility] Click here to page July 17, 2024 11:36 AM Physician Certification of Less Than 30 Days Skilled Needs Earliest Possible Discharge Date: 07/17/24 To the best of my knowledge, all information provided about the individual is a true and an accurate reflection of Mel Castillo's needs. 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 * Attending Physician: Briana Pritchard MD [facility] CBC panel Auto (Bld)on 07-17 Erythrocyte distribution width (RBC) [Ratio] 17.2 % High 11.5-15.0 [facility] Comment on above: Order Comment: Speci men Type: BLOOD SPECIMEN Ordering Facility: [facility] Address: [address] [place] [address] Performed By: #### 2 276-4 #### [facility] CLIA [id number] [address] [place] [address] [place] Hematocrit (Bld) [Volume fraction] 32.3 % Low 36.0-46.0 [facility] Comment on above: Order Comment: Speci men Type: BLOOD SPECIMEN Ordering Facility: [facility] Address: [address] [place] [address] Performed By: #### 2 276-4 #### [facility] CLIA [id number] [address] [place] [address] [place] Hemoglobin (Bld) [Mass/Vol] 10.2 g/dL Low 11.5-15.5 [facility] Comment on above: Order Comment: Speci men Type: BLOOD SPECIMEN Ordering Facility: [facility] Address: [address] [place] [address] Performed By: #### 2 276-4 #### [facility] CLIA [id number] [address] [place] [address] [place] MCH (RBC) [Entitic mass] 26.5 pg Normal 26.0-34.0 [facility] Comment on above: Order Comment: Speci men Type: BLOOD SPECIMEN Ordering Facility: [facility] Address: [address] [place] [address] Performed By: #### 2 276-4 #### [facility] CLIA [id number] [address] [place] [address] [place] MCHC (RBC) [Mass/Vol] 31.6 g/dL Normal 30.5-36.0 [facility] Comment on above: Order Comment: Speci men Type: BLOOD SPECIMEN Ordering Facility: [facility] Address: [address] [place] [address] Performed By: #### 2 276-4 #### [facility] CLIA [id number] [address] [place] [address] [place] MCV (RBC) [Entitic vol] 83.9 fL Normal 80.0-100.0 [facility] Comment on above: Order Comment: Speci men Type: BLOOD SPECIMEN Ordering Facility: [facility] Address: [address] [place] [address] Performed By: #### 2 276-4 #### [facility] CLIA [id number] [address] [place] [address] [place] Nucleated RBC (Bld) [#/Vol] 10*3/uL Normal <0.01 [facility] Comment on above: Order Comment: Speci men Type: BLOOD SPECIMEN Ordering Facility: [facility] Address: [address] [place] [address] Performed By: #### 2 276-4 #### [facility] CLIA [id number] [address] [place] [address] [place] Platelet mean volume (Bld) [Entitic vol] 9.7 fL Normal 9.0-12.7 [facility] Comment on above: Order Comment: Speci men Type: BLOOD SPECIMEN Ordering Facility: [facility] Address: [address] [place] [address] Performed By: #### 2 276-4 #### [facility] CLIA [id number] [address] [place] [address] [place] Platelets (Bld) [#/Vol] 362 10*3/uL Normal 150-400 [facility] Comment on above: Order Comment: Speci men Type: BLOOD SPECIMEN Ordering Facility: [facility] Address: [address] [place] [address] Performed By: #### 2 276-4 #### [facility] CLIA [id number] [address] [place] [address] [place] RBC (Bld) [#/Vol] 3.85 10*6/uL Low 3.90-5.20 [facility] Comment on above: Order Comment: Speci men Type: BLOOD SPECIMEN Ordering Facility: [facility] Address: [address] [place] [address] Performed By: #### 2 276-4 #### [facility] CLIA [id number] [address] [place] [address] [place] WBC (Bld) [#/Vol] 9.41 10*3/uL Normal 3.70-11.00 [facility] Comment on above: Order Comment: Speci men Type: BLOOD SPECIMEN Ordering Facility: [facility] Address: [address] [place] [address] Performed By: #### 2 276-4 #### [facility] [place] [id number] [address] [place] [address] [place] Renal function 2000 panelon 07-17-2024 Albumin [Mass/Vol] 3.3 g/dL Low 3.9-4.9 [facility] Comment on above: Order Comment: Speci men Type: BLOOD SPECIMENOrdering Facility: [facility] Address: [address] [place] [address] Performed By: #### 2 4362-6 ####[facility] [id number] [place] [address] [place] Anion gap [Moles/Vol] 10 mmol/L Normal 8-15 [facility] Comment on above: Order Comment: Speci men Type: BLOOD SPECIMENOrdering Facility: [facility] Address: [address] [place] [address] Performed By: #### 2 4362-6 ####[facility] [id number] [place] [address] [place] Calcium [Mass/Vol] 9.0 mg/dL Normal 8.5-10.2 [facility] Comment on above: Order Comment: Speci men Type: BLOOD SPECIMENOrdering Facility: [facility] Address: [address] [place] [address] Performed By: #### 2 4362-6 ####[facility] [id number] [place] [address] [place] Chloride [Moles/Vol] 101 mmol/L Normal 98-107 [facility] Comment on above: Order Comment: Speci men Type: BLOOD SPECIMENOrdering Facility: [facility] Address: [address] [place] [address] Performed By: #### 2 4362-6 ####[facility] LABIA [id number] [place] [address] [place] CO2 [Moles/Vol] 25 mmol/L Normal 22-30 [facility] Comment on above: Order Comment: Speci men Type: BLOOD SPECIMENOrdering Facility: [facility] Address: [address] [place] [address] Performed By: #### 2 4362-6 ####[facility]IA [id number] [place] [address] [place] Creatinine [Mass/Vol] 0.94 mg/dL Normal 0.58-0.96 [facility] Comment on above: Order Comment: Speci men Type: BLOOD SPECIMENOrdering Facility: [facility] Address: [address] [place] [address] Performed By: #### 2 4362-6 ####[facility]IA [id number] [address] [place] Creatinine and Glomerular filtration rate.predicted panel (S/P/Bld) 60 mL/min/1.73m??? Normal >=60 [facility] Comment on above: Order Comment: Speci men Type: BLOOD SPECIMENOrdering Facility: [facility] Address: [address] [place] [address] Result Comment: Isa mated Glomerular Filtration Rate (eGFR) is calculated using the 2020 CKD-EPI creatinine equation. This equation utilizes serum creatinine, sex, and age as parameters. The creatinine assay has traceable calibration to isotope dilution-mass spectrometry. Refer to KDIGO guidelines for clinical interpretation. In patients with unstable renal function, e.g. those with acute kidney injury, the eGFR may not accurately reflect actual GFR. Performed By: #### 2 4362-6 ####[facility] LABCLIA [id number] [place] [address] [place] Glucose [Mass/Vol] 112 mg/dL High 74-99 [facility] Comment on above: Order Comment: Speci men Type: BLOOD SPECIMENOrdering Facility: [facility] Address: [address] [place] [address] Result Comment: The [place] [employer] (ADA) provides guidance for cutoff values for fasting glucose and random glucose. The ADA defines fasting as no caloric intake for at least 8 hours. Fasting plasma glucose results between 100 to 125 mg/dL indicate increased risk for diabetes (prediabetes). Fasting plasma glucose results greater than or equal to 126 mg/dL meet the criteria for diagnosis of diabetes. In the absence of unequivocal hyperglycemia, results should be confirmed by repeat testing. In a patient with classic symptoms of hyperglycemia or hyperglycemic crisis, random plasma glucose results greater than or equal to 200 mg/dL meet the criteria for diagnosis of diabetes. Reference: Standards of Medical Care in Diabetes 2016, [place] [employer]. Diabetes Care. 2016.39(Suppl 1). Performed By: #### 2 4362-6 ####[facility] LABCLIA [id number] [place] [id number] [place] Phosphate [Mass/Vol] 2.2 mg/dL Low 2.7-4.8 [facility] Comment on above: Order Comment: Samiri men Type: BLOOD SPECIMENOrdering Facility: [facility] Address: [address] [id number] Performed By: #### 2 4362-6 ####[facility] LABCLIA [id number] [address] [address] [place] Potassium [Moles/Vol] 4.6 mmol/L Normal 3.7-5.1 [facility] Comment on above: Order Comment: Speci men Type: BLOOD SPECIMENOrdering Facility: [facility] Address: [address] [place] [address] Performed By: #### 2 4362-6 ####[facility] LABCLIA [id number] [address] [place] Sodium [Moles/Vol] 136 mmol/L Normal 136-144 [facility] Comment on above: Order Comment: Speci men Type: BLOOD SPECIMENOrdering Facility: [facility] Address: [address] [place] [address] Performed By: #### 2 4362-6 ####[facility] LABCLIA [id number] [address] [place] Urea nitrogen [Mass/Vol] 20 mg/dL Normal 7-21 [facility] Comment on above: Order Comment: Speci men Type: BLOOD SPECIMENOrdering Facility: [facility] Address: [address] [place] [address] Performed By: #### 2 4362-6 ####[facility]IA [id number] [address] [place] THERAPY NTon 07-17-2024 THERAPY NT HNO ID: [id number] Author: SANTIAGO GUZMAN OT/L Service: Occupational Therapy Author Type: Occupational Therapist Type: Therapy (PT/OT/Speech/Resp) Filed: 07/17/2024 15:14 Note Text: Occupational Therapy Treatment Summary SERVICE DATE: 07/17/2024 SERVICE TIME: 1425 to 1504 ROOM: [place] [address] OT 6 Clicks Score: 15 DISCHARGE RECOMMENDATIONS Subacute/SNF Recommended Discharge Disposition Comments: SNF rec at this time pending pt visual improvement, AND overall medical course. If pt were to d/c home she would require 24/7 assist d/t visual limitations. SNF rec at this time pending progress. OT to follow. Recommended Discharge Disposition Due to: Functional deficits requiring ongoing therapy service prior to discharge home., ADL impairment Anticipated Discharge Needs: Physical Assist at Home, Supervision at Home Physical Assist at Home for: Cleaning, Laundry, Meals, Shopping, Transportation, Safety, Self Care, Stairs, Medication Management, Finances, Ambulation Supervision at Home due to: Other: See Comment (impaired vision) Recommended Discharge Equipment: To Be Determined ASSESSMENT Response to Therapy Interventions: Good Participation in Activities Tx completed - pt pleasant throughout - AANDOx4. Bed mobility completed - functional mobility completed to bathroom for toileting. Good participation throughout. Maintain current rec at this time. Pt set up for comfort and RN notified upon OT departure. PRECAUTIONS Fall Risk, Lines/Tubes/Drains CURRENT HOSPITAL COURSE Mel Serna Jose Alberto Castillo is a 83 year old female with a PMH of COPD, HTN, Afib (on Lovenox), CKD Stage 3, L retinal detachment, recurrent embolic events, and most recently a left cerebellar infarct in May 2024 who presents as a transfer for further evaluation of R acute angle closure glaucoma. Relevant Past Medical History: + tobacco, A-fib, DVT with IVC filter, COPD. HOME LIVING Patient Lives With: Self/Alone Assistance Available: PRN Entry To Home: Stairs, With Rail Number Of Stairs Into Home: 4 Tub/Shower Type: Grab bars with built in seat. Laundry: Pt was able to complete. Equipment Owned: Grab Bars- Shower, Cane, Walker- Wheeled PRIOR FUNCTIONAL LEVEL Within Functional Limits Patient states that she is normally independent with self care and IADLs. Family helps get groceries. Does not use any DME at baseline. Does not drive, R handed. Baseline Cognition: Oriented to self, Oriented to place, Oriented to time SUBJECTIVE Hello! COGNITION Orientation Deficits: Not oriented to Time Responsiveness: Alert, Awake Follows Commands: 3-step Commands Executive Function Deficits: Safety Awareness Cog 6 Start of Session Total Points (Max Score = 24): 24 (07/17/24) Cog 6 End of Session Total Points (Max Score = 24): 24 (07/17/24) 4AT Score: 0 (07/17/24) Delirium Positive/Negative: Negative (07/17/24) Cognitive Activities Performed: Environmental mods made - lighting adjustments made. THERAPY DIAGNOSIS Reduced mobility-other, Decreased activities of daily living (ADL), Muscle Weakness (generalized) TREATMENT INTERVENTIONS Self Penitentiary Management (00305) Timed Code Treatment (minutes): 39 Skilled Treatment Time (minutes): 39 TRAINING AND EDUCATION PROVIDED Activity Adaptation/Compensatory Strategies, Altering Thinking Patterns, Assistive Device Use, Bed Mobility, Benefits of In-Hospital Mobility, Cognitive Skills, Command Following, Community Integration Skills, Coping Skills/Resiliency, Delirium Reduction Techniques, Discharge Planning, Energy Conservation, Environmental Modification, Exercise Program, Executive Functions/Problem Solving, Expected Functional Level, Fine Motor Coordination, Functional Mobility Involving ADLs, Grooming Tasks, Health Literacy, Health Management of Chronic Conditions, Insight into Deficits, Orientation, Positioning, Precautions/Restriction s, Role of Occupational Therapy, Visual Scanning/Attention Activities, Treatment Protocol, Transfer - Bed to Chair, Transfer - Sit to Stand, Standing Balance to Improve [place] with ADLs/Self-Care, Sitting Balance to Improve [place] with ADLs/Self-Care, Life Roles/Routines/Habits THERAPEUTIC SKILLS USED Therapeutic Use of Self, Physical Assist, Movement Facilitation, Management of Critical Lines, Tubes and/or Drains FUNCTIONAL STATUS Activities of Daily Living Assist Level Additional Information Feeding Minimal Assistance Grooming Moderate Assistance Bathing Upper Body Minimal Assistance Bathing Lower Body Maximal Assistance Dressing Upper Body Minimal Assistance Dressing Lower Body Maximal Assistance Toileting Minimal Assistance Mobility Assist Level Additional Information Bed Mobility Rolling: Contact Guard Assistance Supine To Sit: Contact Guard Assistance Sit To Supine: Contact Guard Assistance Sit to Stand Contact Guard Assistance Stand to Sit Contact Guard Assistance Bed to Radha (more content not included)... Normal [facility] THERAPY NT HNO ID: [id number] Author: GABRIELLA DALEY PT Service: Physical Therapy Author Type: Physical Therapist Type: Therapy (PT/OT/Speech/Resp) Filed: 07/17/2024 09:31 Note Text: Physical Therapy Evaluation Summary SERVICE DATE: 07/17/2024 SERVICE TIME: 832 to 911 ROOM: [place] [address] PT 6 Clicks Score: 18 DISCHARGE RECOMMENDATIONS Subacute/SNF Recommended Discharge Disposition Due to: Functional deficits requiring ongoing therapy service prior to discharge home., Requires multiple therapy disciplines Recommended Discharge Equipment: Wheeled Walker, Hand Held Shower, Grab Bars-Shower, Grab Bars-Toilet ASSESSMENT Response to Therapy Interventions: Good Participation in Activities, On-Track to Achieve Discharge Goals, Pain, Requires Additional Time to Complete Activities, Needs Frequent Redirection or Reinstruction VSS on RA; Pt tolerated session fairly with no adverse reactions to mobility. Pt required intermittent Francisca and continuous max verbal cues for navigation when mobilizing d/t dynamic balance deficits and recent visual changes. Pt would benefit from SNF at d/c to reduce fall risk and improve balance prior to returning home. Education provided to pt concerning reducing fall risk in hospital and the importance of in hospital mobility with pt verbalizing understanding. No further acute PT needs, PT to sign off. pt agreeable to plan. 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 Relevant Past Medical History: + tobacco, A-fib, DVT with IVC filter, COPD. HOME LIVING Patient Lives With: Self/Alone Assistance Available: PRN Entry To Home: Stairs, With Rail Number Of Stairs Into Home: 4 Tub/Shower Type: Grab bars with built in seat. Laundry: Pt was able to complete. Equipment Owned: Grab Bars- Shower, Cane, Walker- Wheeled PRIOR FUNCTIONAL LEVEL Within Functional Limits Patient states that she is normally independent with self care and IADLs. Family helps get groceries. Does not use any DME at baseline. Does not drive, R handed. SUBJECTIVE pt agreeable to PT THERAPY DIAGNOSIS Reduced mobility-other TREATMENT INTERVENTIONS $ Evaluation-Moderate (73269) Billed Units: 1 unit Therapeutic Activity (07736) Treatment Minutes: 10 $ Therapeutic Activity (79940) Billed Units: 1 unit Gait Training (50029) Treatment Minutes: 14 $ Gait Training (28123) Billed Units: 1 unit Evaluation, Therapeutic Activity (62802), Gait Training (81460) Timed Code Treatment (minutes): 24 Skilled Treatment Time (minutes): 39 TRAINING AND EDUCATION PROVIDED Bed Mobility, Assistive Device Use, Anatomy and Impact on Deficits, Benefits of In-Hospital Mobility, Discharge Planning, Disease Specific Education, Energy Conservation, Expected Functional Level, Falls Prevention, Gait Pattern, Reduction of Deviations, Home Safety, Patient Exercise/Therapy Program Support Needs, Positioning, Precautions/Restriction s, Role of Physical Therapy, Sitting Balance, Standing Balance, Transfers, Treatment Protocol THERAPEUTIC SKILLS USED Activity Dosing, Assessment of Tolerance Including Vitals Response to Activity, Cues for Sequencing/Proper Technique for Activity, Cuing Verbal, Cuing Visual, Movement Facilitation, Physical Assist, Postural Alignment Correction, Teach-Back for Education, Repetitive Task Learning FUNCTIONAL STATUS Bed Mobility Rolling: Contact Guard Assistance Supine To Sit: Contact Guard Assistance, Additional Information use of rails and HOB elevated Scooting: Contact Guard Assistance Transfers Sit To Stand: Minimal Assistance, Contact Guard Assistance, Additional Information Francisca from low seat, CGA from standard chair Stand To Sit: Contact Guard Assistance Bed to Chair Contact Guard Assistance Bed To Chair Transfer Type: Stepping Bed To Chair Transfer Equipment: Wheeled Walker Gait Contact Guard Assistance, Additional Information intermittent Francisca for walker steering and max VC for environment navigation d/t visual deficit.; standing rest required throughout d/t fatigue and PAINTING Gait Device: Wheeled Walker General Deviations/Observations : Jenni decreased, Step length decreased, Shuffling Gait, Path Deviation Gait Distance (feet): 50 Stairs GOALS Patient will demonstrate progress to optimize functional mobility, maximize activity tolerance and endurance to maximize function upon discharge. Rehab Potential: Good Progress Toward Goals: Progressing as expected PLAN PT Frequency: Discontinue Therapy Services Reasons Therapy Services Discontinued: Goals met (goals met in session) Treatment Interventions: Education, Energy Conservation Training, (more content not included)... Normal [facility] BSCAN OD (RIGHT EYE)on 07-16 [facility] Radiology Study observation (narrative) [facility] CBC panel Auto (Bld)on 07-16 Erythrocyte distribution width (RBC) [Ratio] 17.8 % High 11.5-15.0 [facility] Comment on above: Order Comment: Speci men Type: BLOOD SPECIMEN [facility] Address: [address] [place] [address] Performed By: #### 5 8410-2 #### [facility] CLIA [id number] [address] [place] [address] [place] Hematocrit (Bld) [Volume fraction] 33.2 % Low 36.0-46.0 [facility] Comment on above: Order Comment: Speci men Type: BLOOD SPECIMEN [facility] Address: [address] [place] [address] Performed By: #### 5 8410-2 #### [facility] CLIA [id number] [address] [place] [address] [place] Hemoglobin (Bld) [Mass/Vol] 10.3 g/dL Low 11.5-15.5 [facility] Comment on above: Order Comment: Speci men Type: BLOOD SPECIMEN [facility] Address: [address] [place] [address] Performed By: #### 5 8410-2 #### [facility] CLIA [id number] [address] [place] [address] [place] MCH (RBC) [Entitic mass] 25.6 pg Low 26.0-34.0 [facility] Comment on above: Order Comment: Speci men Type: BLOOD SPECIMEN [facility] Address: [address] [place] [address] Performed By: #### 5 8410-2 #### [facility] CLIA [id number] [address] [place] [address] [place] MCHC (RBC) [Mass/Vol] 31.0 g/dL Normal 30.5-36.0 [facility] Comment on above: Order Comment: Speci men Type: BLOOD SPECIMEN [facility] Address: [address] [place] [address] Performed By: #### 5 8410-2 #### [facility] CLIA [id number] [address] [place] [address] [place] MCV (RBC) [Entitic vol] 82.4 fL Normal 80.0-100.0 [facility] Comment on above: Order Comment: Speci men Type: BLOOD SPECIMEN [facility] Address: [address] [place] [address] Performed By: #### 5 8410-2 #### [facility] CLIA [id number] [address] [place] [address] [place] Nucleated RBC (Bld) [#/Vol] 10*3/uL Normal <0.01 [facility] Comment on above: Order Comment: Speci men Type: BLOOD SPECIMEN [facility] Address: [address] [place] [address] Performed By: #### 5 8410-2 #### [facility] CLIA [id number] [address] [place] [address] [place] Platelet mean volume (Bld) [Entitic vol] 9.8 fL Normal 9.0-12.7 [facility] Comment on above: Order Comment: Speci men Type: BLOOD SPECIMEN [facility] Address: [address] [place] [address] Performed By: #### 5 8410-2 #### [facility] CLIA [id number] [address] [place] [address] [place] Platelets (Bld) [#/Vol] 348 10*3/uL Normal 150-400 [facility] Comment on above: Order Comment: Speci men Type: BLOOD SPECIMEN [facility] Address: [address] [place] [address] Performed By: #### 5 8410-2 #### [facility] CLIA [id number] [address] [place] [address] [place] RBC (Bld) [#/Vol] 4.03 10*6/uL Normal 3.90-5.20 [facility] Comment on above: Order Comment: Speci men Type: BLOOD SPECIMEN [facility] Address: [address] [place] [address] Performed By: #### 5 8410-2 #### [facility] CLIA [id number] [address] [place] [address] [place] WBC (Bld) [#/Vol] 11.15 10*3/uL High 3.70-11.00 [facility] Comment on above: Order Comment: Speci men Type: BLOOD SPECIMEN [facility] Address: [address] [place] [address] Performed By: #### 5 8410-2 #### [facility] CLIA [id number] [address] [place] [address] [place] FUNDUS PHOTOS OU (BOTH EYES) on 07-16-2024 [facility] Radiology Study observation (narrative) [facility] Renal function 2000 panelon 07-16-2024 Albumin [Mass/Vol] 3.1 g/dL Low 3.9-4.9 [facility] Comment on above: Order Comment: Speci men Type: BLOOD SPECIMENOrdering Facility: [facility] Address: [address] [place] [address] Performed By: #### 2 4362-6 ####[facility] LABCLIA [id number] [place] [address] [place] Anion gap [Moles/Vol] 12 mmol/L Normal 8-15 [facility] Comment on above: Order Comment: Speci men Type: BLOOD SPECIMENOrdering Facility: [facility] Address: [address] [place] [address] Performed By: #### 2 4362-6 ####[facility] LABCLIA [id number] [place] [address] [place] Calcium [Mass/Vol] 9.0 mg/dL Normal 8.5-10.2 [facility] Comment on above: Order Comment: Speci men Type: BLOOD SPECIMENOrdering Facility: [facility] Address: [address] [place] [address] Performed By: #### 2 4362-6 ####[facility] LABCLIA [id number] [place] [address] [place] Chloride [Moles/Vol] 103 mmol/L Normal 98-107 [facility] Comment on above: Order Comment: Speci men Type: BLOOD SPECIMENOrdering Facility: [facility] Address: [address] [place] [address] Performed By: #### 2 4362-6 ####[facility] LABCLIA [id number] [place] [address] [place] CO2 [Moles/Vol] 23 mmol/L Normal 22-30 [facility] Comment on above: Order Comment: Speci men Type: BLOOD SPECIMENOrdering Facility: [facility] Address: [address] [place] [address] Performed By: #### 2 4362-6 ####[facility] LABIA [id number] [place] [address] [place] Creatinine [Mass/Vol] 1.09 mg/dL High 0.58-0.96 [facility] Comment on above: Order Comment: Speci men Type: BLOOD SPECIMENOrdering Facility: [facility] Address: [address] [place] [address] Performed By: #### 2 4362-6 ####[facility]IA [id number] [place] [address] [place] Creatinine and Glomerular filtration rate.predicted panel (S/P/Bld) 50 mL/min/1.73m??? Low >=60 [facility] Comment on above: Order Comment: Speci men Type: BLOOD SPECIMENOrdering Facility: [facility] Address: [address] [place] [address] Result Comment: Isa mated Glomerular Filtration Rate (eGFR) is calculated using the 2020 CKD-EPI creatinine equation. This equation utilizes serum creatinine, sex, and age as parameters. The creatinine assay has traceable calibration to isotope dilution-mass spectrometry. Refer to KDIGO guidelines for clinical interpretation. In patients with unstable renal function, e.g. those with acute kidney injury, the eGFR may not accurately reflect actual GFR. Performed By: #### 2 4362-6 ####[facility] LABCLIA [id number] [place] [id number] [place] Glucose [Mass/Vol] 103 mg/dL High 74-99 [facility] Comment on above: Order Comment: Speci men Type: BLOOD SPECIMENOrdering Facility: [facility] Address: [address] [place] [address] Result Comment: The [place] [employer] (ADA) provides guidance for cutoff values for fasting glucose and random glucose. The ADA defines fasting as no caloric intake for at least 8 hours. Fasting plasma glucose results between 100 to 125 mg/dL indicate increased risk for diabetes (prediabetes). Fasting plasma glucose results greater than or equal to 126 mg/dL meet the criteria for diagnosis of diabetes. In the absence of unequivocal hyperglycemia, results should be confirmed by repeat testing. In a patient with classic symptoms of hyperglycemia or hyperglycemic crisis, random plasma glucose results greater than or equal to 200 mg/dL meet the criteria for diagnosis of diabetes. Reference: Standards of Medical Care in Diabetes 2016, [place] [employer]. Diabetes Care. 2016.39(Suppl 1). Performed By: #### 2 4362-6 ####[facility] LABCLIA [id number] [place] [address] [place] Phosphate [Mass/Vol] 2.9 mg/dL Normal 2.7-4.8 [facility] Comment on above: Order Comment: Speci men Type: BLOOD SPECIMENOrdering Facility: [facility] Address: [address] [place] [address] Performed By: #### 2 4362-6 ####[facility]CLIA [id number] [place] [address] [place] Potassium [Moles/Vol] 4.5 mmol/L Normal 3.7-5.1 [facility] Comment on above: Order Comment: Speci men Type: BLOOD SPECIMENOrdering Facility: [facility] Address: [address] [place], [place] [address] Performed By: #### 2 4362-6 ####[facility]CLIA [id number] [place] [address] [place] Sodium [Moles/Vol] 138 mmol/L Normal 136-144 [facility] Comment on above: Order Comment: Speci men Type: BLOOD SPECIMENOrdering Facility: [facility] Address: [address] [place] [address] Performed By: #### 2 4362-6 ####[facility]CLIA [id number] [address] [place] Urea nitrogen [Mass/Vol] 22 mg/dL High 7-21 [facility] Comment on above: Order Comment: Speci men Type: BLOOD SPECIMENOrdering Facility: [facility] Address: [address] [place] [address] Performed By: #### 2 4362-6 ####[facility] [id number] [address] [place] THERAPY NTon 07-16-2024 THERAPY NT HNO ID: [id number] Author: SANTIAGO GUZMAN OT/L Service: Occupational Therapy Author Type: Occupational Therapist Type: Therapy (PT/OT/Speech/Resp) Filed: 07/16/2024 15:10 Note Text: Occupational Therapy Treatment Summary SERVICE DATE: 07/16/2024 SERVICE TIME: 1415 to 1500 ROOM: [place] [address] OT 6 Clicks Score: 15 DISCHARGE RECOMMENDATIONS Subacute/SNF Recommended Discharge Disposition Comments: SNF rec at this time pending pt visual improvement, AND overall medical course. If pt were to d/c home she would require 24/7 assist d/t visual limitations. SNF rec at this time pending progress. OT to follow. Recommended Discharge Disposition Due to: Functional deficits requiring ongoing therapy service prior to discharge home., ADL impairment Anticipated Discharge Needs: Physical Assist at Home, Supervision at Home Physical Assist at Home for: Transportation, Shopping, Self Care, Meals, Laundry, Cleaning, Transfers, Safety, Medication Management Supervision at Home due to: Decreased safety awareness Recommended Discharge Equipment: To Be Determined ASSESSMENT Response to Therapy Interventions: Good Participation in Activities OT tx completed - pt AANDOx3. Bed mobility completed - functional mobility assessed w wheeled walker to bathroom. Toileting / ADL's completed. Mod vc's required for all command following / mobility d/t visual deficits / vision loss. Pt reports not being able to see light.. only occasional shadows B/L. Pt in bed upon OT departure - RN informed of all updates. Maintain current rec - pt unsafe to d/c home at this time. 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 Relevant Past Medical History: + tobacco, A-fib, DVT with IVC filter, COPD. HOME LIVING Patient Lives With: Self/Alone Assistance Available: PRN Entry To Home: Stairs, With Rail Number Of Stairs Into Home: 4 Tub/Shower Type: Grab bars with built in seat. Laundry: Pt was able to complete. Equipment Owned: Grab Bars- Shower, Cane, Walker- Wheeled PRIOR FUNCTIONAL LEVEL Within Functional Limits Patient states that she is normally independent with self care and IADLs. Family helps get groceries. Does not use any DME at baseline. Does not drive, R handed. Baseline Cognition: Oriented to self, Oriented to place, Oriented to time SUBJECTIVE Hello! COGNITION Orientation Deficits: Not oriented to Time Responsiveness: Alert, Awake Follows Commands: 3-step Commands Executive Function Deficits: Safety Awareness Cog 6 Start of Session Total Points (Max Score = 24): 24 (07/16/24) Cog 6 End of Session Total Points (Max Score = 24): 24 (07/16/24) 4AT Score: 0 (07/16/24) Delirium Positive/Negative: Negative (07/16/24) Cognitive Activities Performed: Environmental mods made - lighting adjustments made. THERAPY DIAGNOSIS Reduced mobility-other, Decreased activities of daily living (ADL), Muscle Weakness (generalized) TREATMENT INTERVENTIONS Self Penitentiary Management (17701) Timed Code Treatment (minutes): 45 Skilled Treatment Time (minutes): 45 TRAINING AND EDUCATION PROVIDED Activity Adaptation/Compensatory Strategies, Altering Thinking Patterns, Assistive Device Use, Bed Mobility, Benefits of In-Hospital Mobility, Cognitive Skills, Command Following, Community Integration Skills, Coping Skills/Resiliency, Delirium Reduction Techniques, Discharge Planning, Energy Conservation, Environmental Modification, Exercise Program, Executive Functions/Problem Solving, Expected Functional Level, Fine Motor Coordination, Functional Mobility Involving ADLs, Grooming Tasks, Health Literacy, Health Management of Chronic Conditions, Insight into Deficits, Orientation, Positioning, Precautions/Restriction s, Role of Occupational Therapy, Visual Scanning/Attention Activities, Treatment Protocol, Transfer - Bed to Chair, Transfer - Sit to Stand, Standing Balance to Improve [place] with ADLs/Self-Care, Sitting Balance to Improve [place] with ADLs/Self-Care, Life Roles/Routines/Habits THERAPEUTIC SKILLS USED Therapeutic Use of Self, Physical Assist, Movement Facilitation, Management of Critical Lines, Tubes and/or Drains FUNCTIONAL STATUS Activities of Daily Living Assist Level Additional Information Feeding Minimal Assistance Grooming Moderate Assistance Bathing Upper Body Minimal Assistance Bathing Lower Body Maximal Assistance Dressing Upper Body Minimal Assistance Dressing Lower Body Maximal Assistance Toileting Minimal Assistance Mobility Assist Level Additional Information Bed Mobility Rolling: Minimal Assistance Supine To Sit: Minimal Assistance Sit (more content not included)... Normal [facility] CBC panel Auto (Bld)on 07-15 Erythrocyte distribution width (RBC) [Ratio] 17.8 % High 11.5-15.0 [facility] Comment on above: Order Comment: Speci men Type: BLOOD SPECIMEN [facility] Address: [address] [place] [address] Performed By: #### 2 4362-6 #### [facility] CLIA [id number] [address] [place] [address] [place] Hematocrit (Bld) [Volume fraction] 34.4 % Low 36.0-46.0 [facility] Comment on above: Order Comment: Speci men Type: BLOOD SPECIMEN [facility] Address: [address] [place] [address] Performed By: #### 2 4362-6 #### [facility] CLIA [id number] [address] [place] [address] [place] Hemoglobin (Bld) [Mass/Vol] 10.7 g/dL Low 11.5-15.5 [facility] Comment on above: Order Comment: Speci men Type: BLOOD SPECIMEN [facility] Address: [address] [place] [address] Performed By: #### 2 4362-6 #### [facility] CLIA [id number] [address] [place] [address] [place] MCH (RBC) [Entitic mass] 26.2 pg Normal 26.0-34.0 [facility] Comment on above: Order Comment: Speci men Type: BLOOD SPECIMEN [facility] Address: [address] [place] [address] Performed By: #### 2 4362-6 #### [facility] CLIA [id number] [address] [place] [address] [place] MCHC (RBC) [Mass/Vol] 31.1 g/dL Normal 30.5-36.0 [facility] Comment on above: Order Comment: Speci men Type: BLOOD SPECIMEN [facility] Address: [address] [place] [address] Performed By: #### 2 4362-6 #### [facility] CLIA [id number] [address] [place] [address] [place] MCV (RBC) [Entitic vol] 84.1 fL Normal 80.0-100.0 [facility] Comment on above: Order Comment: Speci men Type: BLOOD SPECIMEN [facility] Address: [address] [place] [address] Performed By: #### 2 4362-6 #### [facility] CLIA [id number] [address] [place] [address] [place] Nucleated RBC (Bld) [#/Vol] 10*3/uL Normal <0.01 [facility] Comment on above: Order Comment: Speci men Type: BLOOD SPECIMEN [facility] Address: [address] [place] [address] Performed By: #### 2 4362-6 #### [facility] CLIA [id number] [address] [place] [address] [place] Platelet mean volume (Bld) [Entitic vol] 10.1 fL Normal 9.0-12.7 [facility] Comment on above: Order Comment: Speci men Type: BLOOD SPECIMEN [facility] Address: [address] [place] [address] Performed By: #### 2 4362-6 #### [facility] CLIA [id number] [address] [place] [address] [place] Platelets (Bld) [#/Vol] 386 10*3/uL Normal 150-400 [facility] Comment on above: Order Comment: Speci men Type: BLOOD SPECIMEN [facility] Address: [address] [place] [address] Performed By: #### 2 4362-6 #### [facility] CLIA [id number] [address] [place] [address] [place] RBC (Bld) [#/Vol] 4.09 10*6/uL Normal 3.90-5.20 [facility] Comment on above: Order Comment: Speci men Type: BLOOD SPECIMEN [facility] Address: [address] [place] [address] Performed By: #### 2 4362-6 #### [facility] CLIA [id number] [address] [place] [address] [place] WBC (Bld) [#/Vol] 10.20 10*3/uL Normal 3.70-11.00 [facility] Comment on above: Order Comment: Speci men Type: BLOOD SPECIMEN [facility] Address: [address] [place] [address] Performed By: #### 2 4362-6 #### [facility] CLIA [id number] [address] [place] [address] [place] Renal function 2000 panelon 07-15-2024 Albumin [Mass/Vol] 3.5 g/dL Low 3.9-4.9 [facility] Comment on above: Order Comment: Speci men Type: BLOOD SPECIMENOrdering Facility: [facility] Address: [address] [place], [place] [address] Performed By: #### 2 4362-6 ####[facility]IA [id number] [place] [address] [place] Anion gap [Moles/Vol] 12 mmol/L Normal 8-15 [facility] Comment on above: Order Comment: Speci men Type: BLOOD SPECIMENOrdering Facility: [facility] Address: [address] [place] [address] Performed By: #### 2 4362-6 ####[facility] [id number] [place] [address] [place] Calcium [Mass/Vol] 9.1 mg/dL Normal 8.5-10.2 [facility] Comment on above: Order Comment: Speci men Type: BLOOD SPECIMENOrdering Facility: [facility] Address: [address] [place] [address] Performed By: #### 2 4362-6 ####[facility] [id number] [place] [address] [place] Chloride [Moles/Vol] 101 mmol/L Normal 98-107 [facility] Comment on above: Order Comment: Speci men Type: BLOOD SPECIMENOrdering Facility: [facility] Address: [address] [place] [address] Performed By: #### 2 4362-6 ####[facility] [id number] [place] [id number] [place] CO2 [Moles/Vol] 24 mmol/L Normal 22-30 [facility] Comment on above: Order Comment: Speci men Type: BLOOD SPECIMENOrdering Facility: [facility] Address: [address] [place], [place] [address] Performed By: #### 2 4362-6 ####[facility] [id number] [place] [id number] [place] Creatinine [Mass/Vol] 0.96 mg/dL Normal 0.58-0.96 [facility] Comment on above: Order Comment: Rhina mason Type: BLOOD SPECIMENOrdering Facility: [facility] Address: [address] [place] [address] Performed By: #### 2 4362-6 ####[facility] [id number] [place] [address] [place] [facility] Creatinine and Glomerular filtration rate.predicted panel (S/P/Bld) 58 mL/min/1.73m??? Low >=60 [facility] Comment on above: Order Comment: Rhina mason Type: BLOOD SPECIMENOrdering Facility: [facility] Address: [address] [place] [address] Result Comment: Isa mated Glomerular Filtration Rate (eGFR) is calculated using the 2020 CKD-EPI creatinine equation. This equation utilizes serum creatinine, sex, and age as parameters. The creatinine assay has traceable calibration to isotope dilution-mass spectrometry. Refer to KDIGO guidelines for clinical interpretation. In patients with unstable renal function, e.g. those with acute kidney injury, the eGFR may not accurately reflect actual GFR. Performed By: #### 2 4362-6 ####[facility]IA [id number] [place] [address] [place] Glucose [Mass/Vol] 93 mg/dL Normal 74-99 [facility] Comment on above: Order Comment: Rhina mason Type: BLOOD SPECIMENOrdering Facility: [facility] Address: [address] [place] [address] Result Comment: The [place] [employer] (ADA) provides guidance for cutoff values for fasting glucose and random glucose. The ADA defines fasting as no caloric intake for at least 8 hours. Fasting plasma glucose results between 100 to 125 mg/dL indicate increased risk for diabetes (prediabetes). Fasting plasma glucose results greater than or equal to 126 mg/dL meet the criteria for diagnosis of diabetes. In the absence of unequivocal hyperglycemia, results should be confirmed by repeat testing. In a patient with classic symptoms of hyperglycemia or hyperglycemic crisis, random plasma glucose results greater than or equal to 200 mg/dL meet the criteria for diagnosis of diabetes. Reference: Standards of Medical Care in Diabetes 2016, [place] [employer]. Diabetes Care. 2016.39(Suppl 1). Performed By: #### 2 4362-6 ####[facility]IA [id number] [place] [address] [place] Phosphate [Mass/Vol] 3.1 mg/dL Normal 2.7-4.8 [facility] Comment on above: Order Comment: Speci men Type: BLOOD SPECIMENOrdering Facility: [facility] Address: [address] [place] [address] Performed By: #### 2 4362-6 ####[facility]IA [id number] [place] [address] [place] Potassium [Moles/Vol] 4.3 mmol/L Normal 3.7-5.1 [facility] Comment on above: Order Comment: Speci men Type: BLOOD SPECIMENOrdering Facility: [facility] Address: [address] [place] [address] Performed By: #### 2 4362-6 ####[facility]IA [id number] [place] [address] [place] Sodium [Moles/Vol] 137 mmol/L Normal 136-144 [facility] Comment on above: Order Comment: Speci men Type: BLOOD SPECIMENOrdering Facility: [facility] Address: [address] [place] [address] Performed By: #### 2 4362-6 ####[facility] [id number] [place] [address] [place] Urea nitrogen [Mass/Vol] 19 mg/dL Normal 7-21 [facility] Comment on above: Order Comment: Speci men Type: BLOOD SPECIMENOrdering Facility: [facility] Address: [address] [place] [address] Performed By: #### 2 4362-6 ####[facility] [id number] [place] [address] [place] CBC panel Auto (Bld)on 07-14 Erythrocyte distribution width (RBC) [Ratio] 17.9 % High 11.5-15.0 [facility] Comment on above: Order Comment: Speci men Type: BLOOD SPECIMEN [facility] Address: [address] [place] [address] Performed By: #### 2 4362-6 #### [facility] CLIA [id number] [address] [place] [address] [place] Hematocrit (Bld) [Volume fraction] 33.8 % Low 36.0-46.0 [facility] Comment on above: Order Comment: Speci men Type: BLOOD SPECIMEN [facility] Address: [address] [place] [address] Performed By: #### 2 4362-6 #### [facility] CLIA [id number] [address] [place] [address] [place] Hemoglobin (Bld) [Mass/Vol] 10.7 g/dL Low 11.5-15.5 [facility] Comment on above: Order Comment: Speci men Type: BLOOD SPECIMEN [facility] Address: [address] [place] [address] Performed By: #### 2 4362-6 #### [facility] CLIA [id number] [address] [place] [address] [place] MCH (RBC) [Entitic mass] 26.4 pg Normal 26.0-34.0 [facility] Comment on above: Order Comment: Speci men Type: BLOOD SPECIMEN [facility] Address: [address] [place] [address] Performed By: #### 2 4362-6 #### [facility] CLIA [id number] [address] [place] [address] [place] MCHC (RBC) [Mass/Vol] 31.7 g/dL Normal 30.5-36.0 [facility] Comment on above: Order Comment: Speci men Type: BLOOD SPECIMEN [facility] Address: [address] [place] [address] Performed By: #### 2 4362-6 #### [facility] CLIA [id number] [address] [place] [address] [place] MCV (RBC) [Entitic vol] 83.5 fL Normal 80.0-100.0 [facility] Comment on above: Order Comment: Speci men Type: BLOOD SPECIMEN [facility] Address: [address] [place] [address] Performed By: #### 2 4362-6 #### [facility] CLIA [id number] [address] [place] [address] [place] Nucleated RBC (Bld) [#/Vol] 10*3/uL Normal <0.01 [facility] Comment on above: Order Comment: Speci men Type: BLOOD SPECIMEN [facility] Address: [address] [place] [address] Performed By: #### 2 4362-6 #### [facility] CLIA [id number] [address] [place] [address] [place] Platelet mean volume (Bld) [Entitic vol] 10.3 fL Normal 9.0-12.7 [facility] Comment on above: Order Comment: Speci men Type: BLOOD SPECIMEN [facility] Address: [address] [place] [address] Performed By: #### 2 4362-6 #### [facility] CLIA [id number] [address] [place] [address] [place] Platelets (Bld) [#/Vol] 345 10*3/uL Normal 150-400 [facility] Comment on above: Order Comment: Speci men Type: BLOOD SPECIMEN [facility] Address: [address] [place] [address] Performed By: #### 2 4362-6 #### [facility] CLIA [id number] [address] [place] [address] [place] RBC (Bld) [#/Vol] 4.05 10*6/uL Normal 3.90-5.20 [facility] Comment on above: Order Comment: Speci men Type: BLOOD SPECIMEN [facility] Address: [address] [place] [address] Performed By: #### 2 4362-6 #### [facility] CLIA [id number] [address] [place] [address] [place] WBC (Bld) [#/Vol] 11.07 10*3/uL High 3.70-11.00 [facility] Comment on above: Order Comment: Speci men Type: BLOOD SPECIMEN [facility] Address: [address] [place] [address] Performed By: #### 2 4362-6 #### [facility] CLIA [id number] [address] [place] [address] [place] Renal function 2000 panelon 07-14-2024 Albumin [Mass/Vol] 3.5 g/dL Low 3.9-4.9 [facility] Comment on above: Order Comment: Speci men Type: BLOOD SPECIMEN [facility] Address: [address] [place] [address] Performed By: #### 2 4362-6 #### [facility] CLIA [id number] [address] [place] [address] [place] Anion gap [Moles/Vol] 14 mmol/L Normal 8-15 [facility] Comment on above: Order Comment: Speci men Type: BLOOD SPECIMEN [facility] Address: [address] [place] [id number] Performed By: #### 2 4362-6 #### [facility] CLIA [id number] [address] [place] [address] [place] Calcium [Mass/Vol] 9.1 mg/dL Normal 8.5-10.2 [facility] Comment on above: Order Comment: Speci men Type: BLOOD SPECIMEN [facility] Address: [address] [place], [place] [address] Performed By: #### 2 4362-6 #### [facility] CLIA [id number] [address] [place] [address] [place] Chloride [Moles/Vol] 98 mmol/L Normal 98-107 [facility] Comment on above: Order Comment: Speci men Type: BLOOD SPECIMEN [facility] Address: [address] [place], [place] [address] Performed By: #### 2 4362-6 #### [facility] CLIA [id number] [address] [place] [address] [place] CO2 [Moles/Vol] 22 mmol/L Normal 22-30 [facility] Comment on above: Order Comment: Speci men Type: BLOOD SPECIMEN [facility] Address: [address] [place], [place] [address] Performed By: #### 2 4362-6 #### [facility] CLIA [id number] [address] [place], [place] [id number] [place] Creatinine [Mass/Vol] 1.01 mg/dL High 0.58-0.96 [facility] Comment on above: Order Comment: Speci men Type: BLOOD SPECIMEN [facility] Address: [address] [place], [place] [address] Performed By: #### 2 4362-6 #### [facility] CLIA [id number] [address] [place], [place] [id number] [place] Creatinine and Glomerular filtration rate.predicted panel (S/P/Bld) 55 mL/min/1.73m??? Low >=60 [facility] Comment on above: Order Comment: Rhina mason Type: BLOOD SPECIMEN [facility] Address: [address] [place] [address] Result Comment: Isa mated Glomerular Filtration Rate (eGFR) is calculated using the 2020 CKD-EPI creatinine equation. This equation utilizes serum creatinine, sex, and age as parameters. The creatinine assay has traceable calibration to isotope dilution-mass spectrometry. Refer to KDIGO guidelines for clinical interpretation. In patients with unstable renal function, e.g. those with acute kidney injury, the eGFR may not accurately reflect actual GFR. Performed By: #### 2 4362-6 #### [facility] CLIA [id number] [address] [place] [address] [place] Glucose [Mass/Vol] 131 mg/dL High 74-99 [facility] Comment on above: Order Comment: Rhina mason Type: BLOOD SPECIMEN [facility] Address: [address] [place] [address] Result Comment: The [place] [employer] (ADA) provides guidance for cutoff values for fasting glucose and random glucose. The ADA defines fasting as no caloric intake for at least 8 hours. Fasting plasma glucose results between 100 to 125 mg/dL indicate increased risk for diabetes (prediabetes). Fasting plasma glucose results greater than or equal to 126 mg/dL meet the criteria for diagnosis of diabetes. In the absence of unequivocal hyperglycemia, results should be confirmed by repeat testing. In a patient with classic symptoms of hyperglycemia or hyperglycemic crisis, random plasma glucose results greater than or equal to 200 mg/dL meet the criteria for diagnosis of diabetes. Reference: Standards of Medical Care in Diabetes 2016, [place] [employer]. Diabetes Care. 2016.39(Suppl 1). Performed By: #### 2 4362-6 #### [facility] CLIA [id number] [address] [place] [address] [place] Phosphate [Mass/Vol] 3.5 mg/dL Normal 2.7-4.8 [facility] Comment on above: Order Comment: Speci men Type: BLOOD SPECIMEN [facility] Address: [address] [place] [address] Performed By: #### 2 4362-6 #### [facility] CLIA [id number] [address] [place] [address] [place] Potassium [Moles/Vol] 4.1 mmol/L Normal 3.7-5.1 [facility] Comment on above: Order Comment: Speci men Type: BLOOD SPECIMEN Ordering Facility: [facility] Address: [address] [place] [address] Performed By: #### 2 4362-6 #### [facility] CLIA [id number] [address] [place] [address] [place] Sodium [Moles/Vol] 134 mmol/L Low 136-144 [facility] Comment on above: Order Comment: Speci men Type: BLOOD SPECIMEN Ordering Facility: [facility] Address: [address] [place] [address] Performed By: #### 2 4362-6 #### [facility] CLIA [id number] [address] [place] [address] [place] Urea nitrogen [Mass/Vol] 19 mg/dL Normal 7-21 [facility] Comment on above: Order Comment: Speci men Type: BLOOD SPECIMEN Ordering Facility: [facility] Address: [address] [place] [address] Performed By: #### 2 4362-6 #### [facility] CLIA [id number] [address] [place] [address] [place] ANES POSTPROC EVALon 024 ANES POSTPROC EVAL HNO ID: [id number] Author: SIERRA FALK MD Service: ? 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 Post Anesthesia Patient Status Patient Evaluation: bedside. Anticipated Disposition: phase 2 then home. Neurological Status: aware and responsive. Pulmonary Status: breathing comfortably on room air Airway Control: returned to baseline unsupported. Cardiovascular Status: stable. Pain Management: satisfactory to patient - multimodal analgesia pain management approach Postoperative Hydration: acceptable. Intraoperative Events: no significant anesthesia events Post Operative Nausea/Vomiting Status: no significant post operative nausea or vomiting Recommendation: continue current plan of care. Anesthesia Observations No Documentation SIGNATURE: Sierra Falk MD PATIENT NAME: Mel Castillo DATE: July 13, 2024 TIME: 3:57 PM CSN: [id number] Normal [facility] ANES PRE-OPon 07-13-2024 ANES PRE-OP HNO ID: [id number] Author: SIERRA FALK MD Service: ? Author Type: Anesthesiologist Type: Anesthesia Preprocedure Evaluation Filed: 07/13/2024 09:44 Note Text: ANESTHESIOLOGY DAY OF SURGERY NOTE : 1940 Procedure Information Date/Time: 07/13/24 1404 Procedure: ASPIRATION VITREOUS, CHOROIDAL FLUID, PARS PLANA APPROACH (Right: Eye) Location: [address] Surgeons: Savana Lopez MD Estimated body mass index is 26.11 kg/m? as calculated from the following: Height as of 11/25/24: 162.6 cm (5' 4"). Weight as of 06/13/24: 69 kg (152 lb 1.9 oz). 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 Tracheostomy tube not present Mallampati: III. TM distance: >3 FB. Neck ROM: full ROM without neurological symptoms. Mouth opening: adequate. Short neck: no. Thick neck: no II - ANESTHESIA PLAN ASA Score: 4 Anesthetic Plan: general Airway type: LMA NPO Status: adequate Beta Essie Monitoring Plan Monitoring plan: standard ASA. Post Procedure Analgesic Plan Postoperative analgesic plan: multimodal analgesia. Informed Consent Anesthetic risks, benefits, alternatives, personnel and consent discussed: yes. Patient / Responsible Constitution Party agrees to proceed: yes Patient / Surrogate agrees to blood products: blood products not planned Significant changes in the patient condition since the History and Physical, not otherwise documented in primary service progress note: no. Potential Anesthesia issues that may suggest increased risk of complications or contraindication to planned procedure: none. No vitals data found for the desired time range. Facility-Administered Medications as of 07/13/2024 Medication Dose Route Frequency lactated ringers iv infusion 30 mL/hr INTRAVENOUS CONTINUOUS tropicamide 0.5% - cyclopentolate 0.5% - PHENYLephrine 2.5% ophthalmic syringe 1 Drop RIGHT EYE q 5 MIN lisinopril 40 mg tab(s) (ZESTRIL) 40 mg ORAL DAILY [COMPLETED] ondansetron (PF) 4 mg injection (ZOFRAN) 4 mg INTRAVENOUS ONCE brimonidine 0.2 % 1 Drop (ALPHAGAN) 1 Drop RIGHT EYE TID timolol maleate 0.5 % 1 Drop (TIMOPTIC) 1 Drop RIGHT EYE BID [COMPLETED] HYDROmorphone 0.2 mg injection (DILAUDID) 0.2 mg INTRAVENOUS ONCE HYDROmorphone 1 mg tab(s) (DILAUDID) 1 mg ORAL q 4 H PRN polyvinyl alcohol 1.4 % 2 Drop (LIQUIFILM TEARS) 2 Drop RIGHT EYE PRN [COMPLETED] predniSONE (DELTASONE) tab(s) 30 mg 30 mg ORAL/FEEDING TUBE DAILY predniSONE 20 mg tab(s) (DELTASONE) 20 mg ORAL/FEEDING TUBE DAILY HYDROmorphone 0.2 mg injection (DILAUDID) 0.2 mg INTRAVENOUS q 2 H PRN dorzolamide 2 % 1 Drop (TRUSOPT) 1 Drop RIGHT EYE BID prednisoLONE acetate 1 % 1 Drop (PRED FORTE) 1 Drop RIGHT EYE QID [COMPLETED] phosphorus 250 mg tab(s) (K PHOS NEUTRAL) 250 mg ORAL BID PC [COMPLETED] metoprolol tartrate (short acting) 12.5 mg tab(s) (LOPRESSOR) 12.5 mg ORAL q 12 H metoprolol succinate ER 25 mg tab(s) (TOPROL XL) 25 mg ORAL DAILY [COMPLETED] enoxaparin 70 mg injection (LOVENOX) 1 mg/kg/dose (Order-Specific) SUBCUTANEOUS q 12 HR NaCl 0.9% iv flush bag 20 mL INTRAVENOUS PRN polyethylene glycol 3350 17 g packet 17 g ORAL DAILY PRN atorvastatin 80 mg tab(s) (LIPITOR) 80 mg ORAL AT BEDTIME albuterol HFA 90 mcg/actuation 2 Puff (PROVENTIL HFA, VENTOLIN HFA) 2 Puff INHALATION q [address] 40 mg tab(s) (PROTONIX) 40 mg ORAL BID AC (0600/1600) acetaminophen 650 mg tab(s) (TYLENOL) 650 mg ORAL q 6 H lidocaine 4 % 1 Patch (SALONPAS) 1 Patch TRANSDERMAL DAILY ascorbic acid (vitamin C) 500 mg tab(s) (VITAMIN C) 500 mg ORAL TID mometasone 220 mcg/ actuation (14) 1 Puff inhaler (ASMANEX) 1 Puff INHALATION DAILY And tiotropium 2.5 mcg - olodaterol 2.5 mcg inhaler (STIOLTO RESPIMAT) 2 Puff INHALATION DAILY lidocaine patch - REMOVE OTHER AT BEDTIME And lidocaine - VERIFY PATCH OTHER q 8 H atropine 1 % 1 Drop 1 Drop RIGHT EYE BID Outpatient Medications as of 07/13/2024 Medication Sig enoxaparin (LOVENOX) 80 mg/0.8 mL Inject 0.7 mL subcutaneously every 12 hours. atorvastatin (LIPITOR) 80 mg tablet Take 1 tablet by mouth daily at bedtime. metoprolol tartrate, short acting, (LOPRESSOR) 25 mg tablet Take 0.5 tablets by mouth every 12 hours. oahbadgaxnq-dsmasamvd-k ilanter (TRELEGY ELLIPTA) 100-62.5-25 mcg inhalation powder Inhale 1 Puff as instructed once daily. acetaminophen (TYLENOL) 325 mg tablet Take 2 tablets by mouth every 6 hours as needed for pain. ascorbic acid (more content not included)... Normal [facility] CASE MANAGEMon 07-13-2024 CASE MANAGEM HNO ID: [id number] Author: REBECA BELLE LSW Service: ? Author Type: Grinding Wheel Facer Type: Care Mgt Progress Note Filed: 07/13/2024 16:25 Note Text: CARE MANAGEMENT WEEKEND PLANNING NOTE NO WEEKEND DISCHARGE Disposition: Intermediate Facility Anticipated Discharge Date: TBD CM followed up with pt's daughter for SNF choices. Pt is currently in the OR- unable to send referrals in careport or complete "edit note" side bar. 1)[facility] 2)[facility] 3)[facility] 4)[facility] 5)[facility] Will need accepting SNF and precert prior to dc. UPDATE 4:24pm: Referrals sent; awaiting response. Weekend Soldering Inspector Pager #: Please see Treatment Team for Care Management Weekend/Holiday coverage. SIGNATURE: SHAQUILLE Nuñez PATIENT NAME: Mel Castillo DATE: July 13, 2024 TIME: 3:09 PM PAGER/CONTACT #: [phone] Normal [facility] CBC panel Auto (Bld)on 07-13 Erythrocyte distribution width (RBC) [Ratio] 17.6 % High 11.5-15.0 [facility] Comment on above: Order Comment: Speci men Type: BLOOD SPECIMENOrdering Facility: [facility] Address: [address] [place], [place] [id number] Performed By: #### 5 8410-2 ####[facility] [id number] [place] [address] [place] Hematocrit (Bld) [Volume fraction] 34.5 % Low 36.0-46.0 [facility] Comment on above: Order Comment: Speci men Type: BLOOD SPECIMENOrdering Facility: [facility] Address: [address] [place] [address] Performed By: #### 5 8410-2 ####[facility] [id number] [place] [address] [place] Hemoglobin (Bld) [Mass/Vol] 10.8 g/dL Low 11.5-15.5 [facility] Comment on above: Order Comment: Speci men Type: BLOOD SPECIMENOrdering Facility: [facility] Address: [address] [place] [address] Performed By: #### 5 8410-2 ####[facility] [id number] [place] [address] [place] MCH (RBC) [Entitic mass] 26.1 pg Normal 26.0-34.0 [facility] Comment on above: Order Comment: Speci men Type: BLOOD SPECIMENOrdering Facility: [facility] Address: [address] [place] [address] Performed By: #### 5 8410-2 ####[facility] [id number] [place] [address] [place] MCHC (RBC) [Mass/Vol] 31.3 g/dL Normal 30.5-36.0 [facility] Comment on above: Order Comment: Speci men Type: BLOOD SPECIMENOrdering Facility: [facility] Address: [address] [place] [address] Performed By: #### 5 8410-2 ####[facility] [id number] [place] [address] [place] MCV (RBC) [Entitic vol] 83.3 fL Normal 80.0-100.0 [facility] Comment on above: Order Comment: Speci men Type: BLOOD SPECIMENOrdering Facility: [facility] Address: [address] [place] [address] Performed By: #### 5 8410-2 ####[facility] [id number] [place] [address] [place] Nucleated RBC (Bld) [#/Vol] 10*3/uL Normal <0.01 [facility] Comment on above: Order Comment: Speci men Type: BLOOD SPECIMENOrdering Facility: [facility] Address: [address] [place] [address] Performed By: #### 5 8410-2 ####[facility] [id number] [place] [address] [place] Platelet mean volume (Bld) [Entitic vol] 9.7 fL Normal 9.0-12.7 [facility] Comment on above: Order Comment: Speci men Type: BLOOD SPECIMENOrdering Facility: [facility] Address: [address] [place] [address] Performed By: #### 5 8410-2 ####[facility] [id number] [place] [address] [place] Platelets (Bld) [#/Vol] 334 10*3/uL Normal 150-400 [facility] Comment on above: Order Comment: Speci men Type: BLOOD SPECIMENOrdering Facility: [facility] Address: [address] [place] [address] Performed By: #### 5 8410-2 ####[facility] [id number] [place] [address] [place] RBC (Bld) [#/Vol] 4.14 10*6/uL Normal 3.90-5.20 [facility] Comment on above: Order Comment: Speci men Type: BLOOD SPECIMENOrdering Facility: [facility] Address: [address] [place] [address] Performed By: #### 5 8410-2 ####[facility] [id number] [place] [id number] [place] WBC (Bld) [#/Vol] 10.74 10*3/uL Normal 3.70-11.00 [facility] Comment on above: Order Comment: Speci men Type: BLOOD SPECIMENOrdering Facility: [facility] Address: [address] [place] [address] Performed By: #### 5 8410-2 ####[facility] [id number] [place] [address] [place] ECHO WITH AGITATED SALINE CO NTRASTon 07-13-2024 ECHO WITH AGITATED SALINE CONTRAST Echocardiography Report: Transthoracic Echo [facility] Bedside Date of service: 07/13/2024 3:54:27 PM AIRMAN Ordering physician: FELICIA LEVY Indication: Limited KYLE - Bubble study Technologist: Iman Kauffman Interpreting physician: Shoaib Piña MD, PhD PATIENT: Name: MEL CASTILLO : 1940 Age: 83 years Gender: F History of hypertension and arrhythmia. Primary rhythm: atrial fib. Height: 162.60 cm BSA: 1.77 m Weight: 69.00 kg BMI: 26.1 kg/m Heart rate 72 bpm Blood pressure 128/58 mmHg Technically difficult exam due to body habitus, suboptimal positioning and pt in severe pain. Agitated saline was administered to rule out PFO. Color Doppler was utilized to interrogate the cardiac valves assessed and spectral Doppler was utilized to determine the flow velocities and pressure gradients reported in this exam. MEASUREMENTS: Value Indexed Normal LV stroke volume 29 ml (2D 4-ch.) LV end diastolic volume 48 ml (2D 4-ch.) 27.2 ml/m 29<=EDVi<62 LV end systolic volume 19 ml (2D 4-ch.) 10.8 ml/m Ejection Fraction 60 % (2D 4-ch.) EF > 54 FINDINGS: LEFT VENTRICLE The left ventricle is small. Left ventricular systolic function is normal. Wall Motion: All scored segments are normal. RIGHT VENTRICLE The right ventricle is normal in size. Right ventricular systolic function is normal. MITRAL VALVE There is moderate mitral annular calcification observed posterior. There is mild (1+) mitral valve regurgitation. TRICUSPID VALVE There is mild (1+ - 2+) tricuspid valve regurgitation. INTERATRIAL SEPTUM There is no evidence of intracardiac shunting as detected by agitated saline contrast. CONCLUSIONS: - Technically difficult exam due to body habitus, suboptimal positioning and pt in severe pain. - Exam indication: Limited KYLE - Bubble study - Agitated saline was administered to rule out PFO. There is no evidence of intracardiac shunting as detected by agitated saline contrast. - The left ventricle is small. Left ventricular systolic function is normal. EF = 60 5% (2D 4-ch.) - The right ventricle is normal in size. Right ventricular systolic function is normal. 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 - Suboptimal agitated saline study attempted x3 (clips 34, 37, 38). Appears negative, no obvious bubbles seen on left side. - Exam was compared with the prior CC echocardiographic exam performed on 06/11/2024 ([facility]). Similar findings * * * Final * * * [employer] : [id number] Normal [facility] NUTRITIONon 07-13-2024 NUTRITION HNO ID: [id number] Author: PAWAN PRESLEY DTR Service: Nutrition Therapy Author Type: Rotary Drier Feeder Type: Nutrition Filed: 07/13/2024 11:50 Note Text: NUTRITION THERAPY JEWELRY CONSULTANT NOTE SERVICE DATE: 07/13/2024 SERVICE TIME: 1045 Visit Type: Length of Stay Evaluation Goals Met: Not Met The patient was not available at time of visit. Per Epic, she has not met nutritional goals. Will start nutritional supplement and follow up for intake improvements and tolerance of nutritional supplements. Plan of Care: Supplements: Ensure Plus High Protein Follow-Up: Tech Reassessment Nursing Admission Assessment Malnutrition Score: Nutrition Intake: Diet Orders (From admission, onward) Start Ordered 07/13/24 0945 DIET NPO START NOW 07/13/24 0936 Average Daily Calorie Intake (kcal): 1005 kcal Average Daily Protein Intake (gm): 34 gm Average intake over: 5 days (As noted per [facility]. Kcal noted at an average of 50% per day of meals served.) Appetite: Unable to determine GI Symptoms: Unable to determine at this time Anthropometrics: There is no height or weight on file to calculate BMI. Food Preferences: Add nutritional supplements Allergies: No food allergies noted per [facility]. MNT Billing: $ Routine Care : 1-15 minutes SIGNATURE: Pawan Presley DTR PATIENT NAME: Mel Castillo DATE: July 13, 2024 TIME: 11:49 AM Normal [facility] OPERATIVE NOon 07-13-2024 OPERATIVE NO HNO ID: [id number] Author: SAVANA LOPEZ MD Service: Ophthalmology Author Type: Physician Type: Operative Report Filed: 07/13/2024 13:32 Note Text: [place] [address] [place] [facility] OPERATIVE REPORT LOG ID: [id number] Surgery/Procedure Date: 07/13/2024 Incision/Procedure Start Time: 12:43 PM Incision Close/Procedure End Time: 1:32 PM NAME: Mel Pop [facility] #: [id number] SURGEON(S) AND CHIEF LIBRARIAN EXTENSION DEPARTMENT(S): Surgeons and Role: * Savana Lopez MD - Primary * De Gambino MD - Resident - Observing * Nicolas Sahu MD - Fellow ANESTHESIA: General with retrobulbar block PREOPERATIVE DIAGNOSIS: 1. Hemorrhagic Choroidal effusions/detachment, right eye 2. Serous retinal detachment, right eye POSTOPERATIVE DIAGNOSIS: Same OPERATION: 1. Choroidal drainage, right eye OPERATIVE INDICATIONS: This is a(n) 83 year old female presenting with Hemorrhagic Choroidal effusions/detachment requiring surgery for the rehabilitation of vision in the right eye. The risks/benefits/alternat camron/complications were discussed with the patient/legal guardian who agreed to proceed. All questions were answered. Written informed consent was obtained. OPERATIVE PROCEDURE: After proper informed consent was obtained, the patient was brought to the operating room, where appropriate monitoring leads were placed on their body by the anesthesia team, who were present during the entire case. General anesthesia was induced. A retrobulbar block consisting of 6 mL injection of 0.75% Marcaine mixed 50:50 with 2% lidocaine with wydase was instilled. The patient's face was prepped and draped in the usual sterile fashion. A wire lid speculum was placed in the eye. Next, a surgical timeout was performed and the surgical site and procedure were confirmed by all personnel. A 360 degrees conjunctival peritomy was performed. Tenotomy scissors were used to separate the Tenon?s capsule in the four oblique globe quadrants. Next, each of the four rectus muscles were identified with the muscle hook, cleaned, and looped with 2-0 silk ligatures. The globe was examined and there were no signs of scleral thinning. A paracentesis was created and the IOL was repositioned with viscoelastic cannula. An anterior chamber maintainer was placed and infusion turned on and IOP elevated to 60 mmHg. An MVR 20 g was used at 12:00 to create a partial thickness incision and choroidal hemorrhage was drained with the assistance of 0.12 forceps, cyclodialysis spatula, and cotton tip applicators. Additional choroidal drainage sites at 3:00 and 9:00 were created. Serous fluid mixed with hemorrhage was released from the 12:00 incision site; some hemorrhage was released from the 3:00 and 9:00 sites. The blood must still have been clotted to not achieve a large amount of choroidal drainage. The anterior chamber was noted to relax even after clamping the infusion. The anterior chamber maintainer was removed and paracentesis site hydrated. The silk ligatures were removed. The conjunctiva was reapproximated at the limbus with 6-0 plain gut suture. Subconjunctival injections of antibiotic and dexamethasone were given prior to removal of the lid speculum. The speculum was removed and the drapes were removed. The eye was cleaned and patched with a Redmond shield after maxitrol ointment was instilled. The patient was awakened and taken to the recovery room in stable condition having tolerated the procedure well. There were no complications. We will see the patient back in 1 days time. At all times throughout the case light exposure to the macula and fovea were minimized to reduce the risk of phototoxicity ESTIMATED BLOOD LOSS: Less than 0.5 mL SPECIMENS: * No specimens in log * IMPLANTS: * No implants in log * DRAINS: None COMPLICATIONS: None PARTICIPATION: No qualified resident was available. Fellow closed under direct supervision and the remainder of the procedure was performed by the primary surgeon/proceduralist with assistance. Savana Lopez MD Vitreoretinal Surgery AND Ocular Inflammatory Diseases [facility] Eye [place] Normal [facility] Renal function 2000 panelon 07-13-2024 Albumin [Mass/Vol] 3.5 g/dL Low 3.9-4.9 [facility] Comment on above: Order Comment: Speci men Type: BLOOD SPECIMENOrdering Facility: [facility] Address: [address] [place] [address] Performed By: #### 2 4362-6 ####[facility] [id number] [place] [address] [place] Anion gap [Moles/Vol] 10 mmol/L Normal 8-15 [facility] Comment on above: Order Comment: Speci men Type: BLOOD SPECIMENOrdering Facility: [facility] Address: [address] [place] [address] Performed By: #### 2 4362-6 ####[facility] [id number] [place] [address] [place] Calcium [Mass/Vol] 9.3 mg/dL Normal 8.5-10.2 [facility] Comment on above: Order Comment: Speci men Type: BLOOD SPECIMENOrdering Facility: [facility] Address: [address] [place] [address] Performed By: #### 2 4362-6 ####[facility] [id number] [place] [address] [place] Chloride [Moles/Vol] 100 mmol/L Normal 98-107 [facility] Comment on above: Order Comment: Speci men Type: BLOOD SPECIMENOrdering Facility: [facility] Address: [address] [place] [address] Performed By: #### 2 4362-6 ####[facility] [id number] [place] [address] [place] CO2 [Moles/Vol] 27 mmol/L Normal 22-30 [facility] Comment on above: Order Comment: Speci men Type: BLOOD SPECIMENOrdering Facility: [facility] Address: [address] [place] [address] Performed By: #### 2 4362-6 ####[facility]IA [id number] [place] [address] [place] Creatinine [Mass/Vol] 0.92 mg/dL Normal 0.58-0.96 [facility] Comment on above: Order Comment: Speci men Type: BLOOD SPECIMENOrdering Facility: [facility] Address: [address] [place] [address] Performed By: #### 2 4362-6 ####[facility] [id number] [place] [address] [place] Creatinine and Glomerular filtration rate.predicted panel (S/P/Bld) 62 mL/min/1.73m??? Normal >=60 [facility] Comment on above: Order Comment: Speci men Type: BLOOD SPECIMENOrdering Facility: [facility] Address: [address] [place] [address] Result Comment: Isa mated Glomerular Filtration Rate (eGFR) is calculated using the 2020 CKD-EPI creatinine equation. This equation utilizes serum creatinine, sex, and age as parameters. The creatinine assay has traceable calibration to isotope dilution-mass spectrometry. Refer to KDIGO guidelines for clinical interpretation. In patients with unstable renal function, e.g. those with acute kidney injury, the eGFR may not accurately reflect actual GFR. Performed By: #### 2 4362-6 ####[facility] [facility] [id number] [place] [address] [place] Glucose [Mass/Vol] 103 mg/dL High 74-99 [facility] Comment on above: Order Comment: Speci men Type: BLOOD SPECIMENOrdering Facility: [facility] Address: [address] [place] [address] Result Comment: The [place] [employer] (ADA) provides guidance for cutoff values for fasting glucose and random glucose. The ADA defines fasting as no caloric intake for at least 8 hours. Fasting plasma glucose results between 100 to 125 mg/dL indicate increased risk for diabetes (prediabetes). Fasting plasma glucose results greater than or equal to 126 mg/dL meet the criteria for diagnosis of diabetes. In the absence of unequivocal hyperglycemia, results should be confirmed by repeat testing. In a patient with classic symptoms of hyperglycemia or hyperglycemic crisis, random plasma glucose results greater than or equal to 200 mg/dL meet the criteria for diagnosis of diabetes. Reference: Standards of Medical Care in Diabetes 2016, [place] [employer]. Diabetes Care. 2016.39(Suppl 1). Performed By: #### 2 4362-6 ####[facility] LABCLIA [id number] [place] [address] [place] Phosphate [Mass/Vol] 3.5 mg/dL Normal 2.7-4.8 [facility] Comment on above: Order Comment: Speci men Type: BLOOD SPECIMENOrdering Facility: [facility] Address: [address] [place] [address] Performed By: #### 2 4362-6 ####[facility] LABCLIA [id number] [place] [address] [place] Potassium [Moles/Vol] 4.2 mmol/L Normal 3.7-5.1 [facility] Comment on above: Order Comment: Speci men Type: BLOOD SPECIMENOrdering Facility: [facility] Address: [address] [id number] Performed By: #### 2 4362-6 ####[facility] LABCLIA [id number] [place] [address] [place] Sodium [Moles/Vol] 137 mmol/L Normal 136-144 [facility] Comment on above: Order Comment: Speci men Type: BLOOD SPECIMENOrdering Facility: [facility] Address: [address] [place] [address] Performed By: #### 2 4362-6 ####[facility] LABCLIA [id number] [place] [address] [place] Urea nitrogen [Mass/Vol] 12 mg/dL Normal 7-21 [facility] Comment on above: Order Comment: Speci men Type: BLOOD SPECIMENOrdering Facility: [facility] Address: [address] [place] [address] Performed By: #### 2 4362-6 ####[facility] LABIA [id number] [place] [address] [place] BSCAN OD (RIGHT EYE)on 07-12 [facility] Radiology Study observation (narrative) [facility] CBC panel Auto (Bld)on 07-12 Erythrocyte distribution width (RBC) [Ratio] 17.8 % High 11.5-15.0 [facility] Comment on above: Order Comment: Speci men Type: BLOOD SPECIMENOrdering Facility: [facility] Address: [address] [place] [address] Performed By: #### 5 8410-2 ####[facility] LABIA [id number] [place] [address] [place] Hematocrit (Bld) [Volume fraction] 34.7 % Low 36.0-46.0 [facility] Comment on above: Order Comment: Speci men Type: BLOOD SPECIMENOrdering Facility: [facility] Address: [address] [place] [address] Performed By: #### 5 8410-2 ####[facility] LABIA [id number] [place] [address] [place] Hemoglobin (Bld) [Mass/Vol] 10.6 g/dL Low 11.5-15.5 [facility] Comment on above: Order Comment: Speci men Type: BLOOD SPECIMENOrdering Facility: [facility] Address: [address] [place] [address] Performed By: #### 5 8410-2 ####[facility] LABIA [id number] [place] [address] [place] MCH (RBC) [Entitic mass] 26.4 pg Normal 26.0-34.0 [facility] Comment on above: Order Comment: Speci men Type: BLOOD SPECIMENOrdering Facility: [facility] Address: [address] [place] [address] Performed By: #### 5 8410-2 ####[facility] LABIA [id number] [place] [address] [place] MCHC (RBC) [Mass/Vol] 30.5 g/dL Normal 30.5-36.0 [facility] Comment on above: Order Comment: Speci men Type: BLOOD SPECIMENOrdering Facility: [facility] Address: [address] [place] [address] Performed By: #### 5 8410-2 ####[facility] [id number] [place] [address] [place] MCV (RBC) [Entitic vol] 86.3 fL Normal 80.0-100.0 [facility] Comment on above: Order Comment: Speci men Type: BLOOD SPECIMENOrdering Facility: [facility] Address: [address] [place] [address] Performed By: #### 5 8410-2 ####[facility] LABIA [id number] [place] [address] [place] Nucleated RBC (Bld) [#/Vol] 10*3/uL Normal <0.01 [facility] Comment on above: Order Comment: Speci men Type: BLOOD SPECIMENOrdering Facility: [facility] Address: [address] [place] [address] Performed By: #### 5 8410-2 ####[facility] LABIA [id number] [address] [id number] [address] [place] Platelet mean volume (Bld) [Entitic vol] 9.9 fL Normal 9.0-12.7 [facility] Comment on above: Order Comment: Speci men Type: BLOOD SPECIMENOrdering Facility: [facility] Address: [address] [place] [address] Performed By: #### 5 8410-2 ####[facility] LABIA [id number] [place] [address] [place] Platelets (Bld) [#/Vol] 301 10*3/uL Normal 150-400 [facility] Comment on above: Order Comment: Speci men Type: BLOOD SPECIMENOrdering Facility: [facility] Address: [address] [place] [address] Performed By: #### 5 8410-2 ####[facility] LABIA [id number] [place] [address] [place] RBC (Bld) [#/Vol] 4.02 10*6/uL Normal 3.90-5.20 [facility] Comment on above: Order Comment: Speci men Type: BLOOD SPECIMENOrdering Facility: [facility] Address: [address] [place] [address] Performed By: #### 5 8410-2 ####[facility] LABIA [id number] [place] [address] [place] WBC (Bld) [#/Vol] 10.07 10*3/uL Normal 3.70-11.00 [facility] Comment on above: Order Comment: Speci men Type: BLOOD SPECIMENOrdering Facility: [facility] Address: [address] [place] [address] Performed By: #### 5 8410-2 ####[facility] LABCLIA [id number] [place] [address] [place] PT EDon 07-12-2024 PT ED HNO ID: [id number] Author: GISSELL POPE RPh Service: Pharmacy Author Type: Pharmacist Type: Patient Education Filed: 07/12/2024 10:57 Note Text: PHARMACY ANTICOAGULATION EDUCATION Patient Name: Mel Castillo Account #: Data Unavailable Admission Date: 07/07/2024 11:35 AM Date of Contact: July 12, 2024 Time of Contact: 10:54 AM Patient anticipated to be discharged on Apixaban as oral anticoagulation therapy. Anticoagulant history: Patient is transitioning to a new oral anticoagulant. This patient was previously anticoagulated at home with enoxaparin. Prior to enoxaparin, patient was on apixaban 5 mg BID, reporting non-compliance vs failure. Indication for oral anticoagulation: atrial fibrillation/atrial flutter Anticoagulant education status: Pharmacy confirmed patient is not new start to anticoagulation therapy listed above. If additional education is needed, please consult pharmacy for inpatient anticoagulant education. Gissell Pope RPh Normal [facility] Renal function 2000 panelon 07-12-2024 Albumin [Mass/Vol] 3.4 g/dL Low 3.9-4.9 [facility] Comment on above: Order Comment: Speci men Type: BLOOD SPECIMENOrdering Facility: [facility] Address: [address] [place] [address] Performed By: #### 2 4362-6 ####[facility] LABCLIA [id number] [place] [address] [place] Anion gap [Moles/Vol] 14 mmol/L Normal 8-15 [facility] Comment on above: Order Comment: Speci isabella Type: BLOOD SPECIMENOrdering Facility: [facility] Address: [address] [id number] Performed By: #### 2 4362-6 ####[facility] LABCLIA [id number] [place] [address] [place] Calcium [Mass/Vol] 9.3 mg/dL Normal 8.5-10.2 [facility] Comment on above: Order Comment: Speci men Type: BLOOD SPECIMENOrdering Facility: [facility] Address: [address] [place] [address] Performed By: #### 2 4362-6 ####[facility] LABCLIA [id number] [place] [address] [place] Chloride [Moles/Vol] 101 mmol/L Normal 98-107 [facility] Comment on above: Order Comment: Speci men Type: BLOOD SPECIMENOrdering Facility: [facility] Address: [address] [place] [address] Performed By: #### 2 4362-6 ####[facility] LABIA [id number] [place] [address] [place] CO2 [Moles/Vol] 21 mmol/L Low 22-30 [facility] Comment on above: Order Comment: Speci men Type: BLOOD SPECIMENOrdering Facility: [facility] Address: [address] [place] [address] Performed By: #### 2 4362-6 ####[facility] LABIA [id number] [place] [address] [place] Creatinine [Mass/Vol] 0.81 mg/dL Normal 0.58-0.96 [facility] Comment on above: Order Comment: Speci men Type: BLOOD SPECIMENOrdering Facility: [facility] Address: [address] [place] [address] Performed By: #### 2 4362-6 ####[facility] LABIA [id number] [address] [place] Creatinine and Glomerular filtration rate.predicted panel (S/P/Bld) 72 mL/min/1.73m??? Normal >=60 [facility] Comment on above: Order Comment: Speci men Type: BLOOD SPECIMENOrdering Facility: [facility] Address: [address] [place] [address] Result Comment: Isa mated Glomerular Filtration Rate (eGFR) is calculated using the 2020 CKD-EPI creatinine equation. This equation utilizes serum creatinine, sex, and age as parameters. The creatinine assay has traceable calibration to isotope dilution-mass spectrometry. Refer to KDIGO guidelines for clinical interpretation. In patients with unstable renal function, e.g. those with acute kidney injury, the eGFR may not accurately reflect actual GFR. Performed By: #### 2 4362-6 ####[facility] LABCLIA [id number] [place] [address] [place] Glucose [Mass/Vol] 100 mg/dL High 74-99 [facility] Comment on above: Order Comment: Speci men Type: BLOOD SPECIMENOrdering Facility: [facility] Address: [address] [place] [address] Result Comment: The [place] [employer] (ADA) provides guidance for cutoff values for fasting glucose and random glucose. The ADA defines fasting as no caloric intake for at least 8 hours. Fasting plasma glucose results between 100 to 125 mg/dL indicate increased risk for diabetes (prediabetes). Fasting plasma glucose results greater than or equal to 126 mg/dL meet the criteria for diagnosis of diabetes. In the absence of unequivocal hyperglycemia, results should be confirmed by repeat testing. In a patient with classic symptoms of hyperglycemia or hyperglycemic crisis, random plasma glucose results greater than or equal to 200 mg/dL meet the criteria for diagnosis of diabetes. Reference: Standards of Medical Care in Diabetes 2016, [place] [employer]. Diabetes Care. 2016.39(Suppl 1). Performed By: #### 2 4362-6 ####[facility] LABCLIA [id number] [address] [place] [id number] [place] Phosphate [Mass/Vol] 2.7 mg/dL Normal 2.7-4.8 [facility] Comment on above: Order Comment: Samiri men Type: BLOOD SPECIMENOrdering Facility: [facility] Address: [address] [place] [address] Performed By: #### 2 4362-6 ####[facility] LABCLIA [id number] [address] [address] [place] Potassium [Moles/Vol] 4.0 mmol/L Normal 3.7-5.1 [facility] Comment on above: Order Comment: Speci men Type: BLOOD SPECIMENOrdering Facility: [facility] Address: [address] [place] [address] Performed By: #### 2 4362-6 ####[facility] LABCLIA [id number] [address] [id number] [place] Sodium [Moles/Vol] 136 mmol/L Normal 136-144 [facility] Comment on above: Order Comment: Speci men Type: BLOOD SPECIMENOrdering Facility: [facility] Address: [address] [place] [address] Performed By: #### 2 4362-6 ####[facility] LABCLIA [id number] [place] [address] [place] Urea nitrogen [Mass/Vol] 12 mg/dL Normal 7-21 [facility] Comment on above: Order Comment: Speci men Type: BLOOD SPECIMENOrdering Facility: [facility] Address: [address] [place] [address] Performed By: #### 2 4362-6 ####[facility] LABIA [id number] [place] [address] [place] Right eye Photo documentatio non 07-12-2024 [facility] Radiology Study observation (narrative) Amarjit chaudhry [facility] THERAPY NTon 07-12-2024 THERAPY NT HNO ID: [id number] Author: RYANN GUZMÁN OT/[place] Service: Occupational Therapy Author Type: Occupational Therapist Type: Therapy (PT/OT/Speech/Resp) Filed: 07/12/2024 12:26 Note Text: OCCUPATIONAL THERAPY MISSED VISIT SERVICE DATE: 07/12/2024 SERVICE TIME: 1226 ROOM: [place] [id number] ([facility] - OPHTHALMOLOGY) Patient not seen due to Test / Procedure. SIGNATURE: JUANY Willett PATIENT NAME: Mel Castillo DATE: July 12, 2024 TIME: 12:26 PM Normal [facility] CBC panel Auto (Bld)on 07-11 Erythrocyte distribution width (RBC) [Ratio] 17.6 % High 11.5-15.0 [facility] Comment on above: Order Comment: Speci men Type: BLOOD SPECIMEN [facility] Address: [address] [place] [address] Performed By: #### 5 8410-2 #### [facility] CLIA [id number] [address] [place] [address] [place] Hematocrit (Bld) [Volume fraction] 32.3 % Low 36.0-46.0 [facility] Comment on above: Order Comment: Speci men Type: BLOOD SPECIMEN [facility] Address: [address] [place] [address] Performed By: #### 5 8410-2 #### [facility] CLIA [id number] [address] [place] [address] [place] Hemoglobin (Bld) [Mass/Vol] 10.5 g/dL Low 11.5-15.5 [facility] Comment on above: Order Comment: Speci men Type: BLOOD SPECIMEN [facility] Address: [address] [place] [address] Performed By: #### 5 8410-2 #### [facility] CLIA [id number] [address] [place] [address] [place] MCH (RBC) [Entitic mass] 27.0 pg Normal 26.0-34.0 [facility] Comment on above: Order Comment: Speci men Type: BLOOD SPECIMEN [facility] Address: [address] [place] [address] Performed By: #### 5 8410-2 #### [facility] CLIA [id number] [address] [place] [address] [place] MCHC (RBC) [Mass/Vol] 32.5 g/dL Normal 30.5-36.0 [facility] Comment on above: Order Comment: Speci men Type: BLOOD SPECIMEN [facility] Address: [address] [place] [address] Performed By: #### 5 8410-2 #### [facility] CLIA [id number] [address] [place] [address] [place] MCV (RBC) [Entitic vol] 83.0 fL Normal 80.0-100.0 [facility] Comment on above: Order Comment: Speci men Type: BLOOD SPECIMEN [facility] Address: [address] [place] [address] Performed By: #### 5 8410-2 #### [facility] CLIA [id number] [address] [place] [address] [place] Nucleated RBC (Bld) [#/Vol] 10*3/uL Normal <0.01 [facility] Comment on above: Order Comment: Speci men Type: BLOOD SPECIMEN [facility] Address: [address] [place] [address] Performed By: #### 5 8410-2 #### [facility] CLIA [id number] [address] [place] [address] [place] Platelet mean volume (Bld) [Entitic vol] 9.9 fL Normal 9.0-12.7 [facility] Comment on above: Order Comment: Speci men Type: BLOOD SPECIMEN [facility] Address: [address] [place] [address] Performed By: #### 5 8410-2 #### [facility] CLIA [id number] [address] [place] [address] [place] Platelets (Bld) [#/Vol] 289 10*3/uL Normal 150-400 [facility] Comment on above: Order Comment: Speci men Type: BLOOD SPECIMEN [facility] Address: [address] [place] [address] Performed By: #### 5 8410-2 #### [facility] CLIA [id number] [address] [place] [address] [place] RBC (Bld) [#/Vol] 3.89 10*6/uL Low 3.90-5.20 [facility] Comment on above: Order Comment: Speci men Type: BLOOD SPECIMEN [facility] Address: [address] [place] [address] Performed By: #### 5 8410-2 #### [facility] CLIA [id number] [address] [place] [address] [place] WBC (Bld) [#/Vol] 8.32 10*3/uL Normal 3.70-11.00 [facility] Comment on above: Order Comment: Speci men Type: BLOOD SPECIMEN [facility] Address: [address] [place] [address] Performed By: #### 5 8410-2 #### [facility] CLIA [id number] [address] [place] [address] [place] Renal function 2000 panelon 07-11-2024 Albumin [Mass/Vol] 3.4 g/dL Low 3.9-4.9 [facility] Comment on above: Order Comment: Speci men Type: BLOOD SPECIMENOrdering Facility: [facility] Address: [address] [place] [address] Performed By: #### 2 4362-6 ####[facility] LABCLIA [id number] [place] [address] [place] Anion gap [Moles/Vol] 11 mmol/L Normal 8-15 [facility] Comment on above: Order Comment: Speci men Type: BLOOD SPECIMENOrdering Facility: [facility] Address: [address] [place] [address] Performed By: #### 2 4362-6 ####[facility] LABCLIA [id number] [place] [address] [place] Calcium [Mass/Vol] 8.9 mg/dL Normal 8.5-10.2 [facility] Comment on above: Order Comment: Speci men Type: BLOOD SPECIMENOrdering Facility: [facility] Address: [address] [place] [address] Performed By: #### 2 4362-6 ####[facility] LABCLIA [id number] [place] [address] [place] Chloride [Moles/Vol] 103 mmol/L Normal 98-107 [facility] Comment on above: Order Comment: Speci men Type: BLOOD SPECIMENOrdering Facility: [facility] Address: [address] [place] [address] Performed By: #### 2 4362-6 ####[facility] LABCLIA [id number] [place] [address] [place] CO2 [Moles/Vol] 23 mmol/L Normal 22-30 [facility] Comment on above: Order Comment: Speci men Type: BLOOD SPECIMENOrdering Facility: [facility] Address: [address] [place] [address] Performed By: #### 2 4362-6 ####[facility] LABCLIA [id number] [place] [address] [place] Creatinine [Mass/Vol] 0.91 mg/dL Normal 0.58-0.96 [facility] Comment on above: Order Comment: Speci men Type: BLOOD SPECIMENOrdering Facility: [facility] Address: [address] [place] [address] Performed By: #### 2 4362-6 ####[facility] LABCLIA [id number] [place] [address] [place] Creatinine and Glomerular filtration rate.predicted panel (S/P/Bld) 62 mL/min/1.73m??? Normal >=60 [facility] Comment on above: Order Comment: Speci men Type: BLOOD SPECIMENOrdering Facility: [facility] Address: [address] [place] [address] Result Comment: Isa mated Glomerular Filtration Rate (eGFR) is calculated using the 2020 CKD-EPI creatinine equation. This equation utilizes serum creatinine, sex, and age as parameters. The creatinine assay has traceable calibration to isotope dilution-mass spectrometry. Refer to KDIGO guidelines for clinical interpretation. In patients with unstable renal function, e.g. those with acute kidney injury, the eGFR may not accurately reflect actual GFR. Performed By: #### 2 4362-6 ####[facility] LABIA [id number] [place] [address] [place] Glucose [Mass/Vol] 98 mg/dL Normal 74-99 [facility] Comment on above: Order Comment: Rhina mason Type: BLOOD SPECIMENOrdering Facility: [facility] Address: [address] [place] [address] Result Comment: The [place] [employer] (ADA) provides guidance for cutoff values for fasting glucose and random glucose. The ADA defines fasting as no caloric intake for at least 8 hours. Fasting plasma glucose results between 100 to 125 mg/dL indicate increased risk for diabetes (prediabetes). Fasting plasma glucose results greater than or equal to 126 mg/dL meet the criteria for diagnosis of diabetes. In the absence of unequivocal hyperglycemia, results should be confirmed by repeat testing. In a patient with classic symptoms of hyperglycemia or hyperglycemic crisis, random plasma glucose results greater than or equal to 200 mg/dL meet the criteria for diagnosis of diabetes. Reference: Standards of Medical Care in Diabetes 2016, [place] [employer]. Diabetes Care. 2016.39(Suppl 1). Performed By: #### 2 4362-6 ####[facility] LABIA [id number] [place] [id number] [place] Phosphate [Mass/Vol] 2.8 mg/dL Normal 2.7-4.8 [facility] Comment on above: Order Comment: Rhina mason Type: BLOOD SPECIMENOrdering Facility: [facility] Address: [address] [place] [address] Performed By: #### 2 4362-6 ####[facility] LABIA [id number] [place] [id number] [place] Potassium [Moles/Vol] 3.6 mmol/L Low 3.7-5.1 [facility] Comment on above: Order Comment: Speci men Type: BLOOD SPECIMENOrdering Facility: [facility] Address: [address] [place] [address] Performed By: #### 2 4362-6 ####[facility] LABCLIA [id number] [place] [address] [place] Sodium [Moles/Vol] 137 mmol/L Normal 136-144 [facility] Comment on above: Order Comment: Speci men Type: BLOOD SPECIMENOrdering Facility: [facility] Address: [address] [place] [address] Performed By: #### 2 4362-6 ####[facility] LABCLIA [id number] [place] [address] [place] Urea nitrogen [Mass/Vol] 15 mg/dL Normal 7-21 [facility] Comment on above: Order Comment: Speci men Type: BLOOD SPECIMENOrdering Facility: [facility] Address: [address] [place] [address] Performed By: #### 2 4362-6 ####[facility] LABCLIA [id number] [place] [address] [place] CASE MANAGEMon 07-10-2024 CASE MANAGEM HNO ID: [id number] Author: TREY HUGHES LSW Service: Social Work Author Type: Grinding Wheel Facer Type: Care Mgt Progress Note Filed: 07/10/2024 14:42 Note Text: CARE MANAGEMENT PROGRESS NOTE SERVICE DATE: 07/10/2024 SERVICE TIME: 2:38 PM LOS: 3 days Post-Acute Discharge Planning Patient Goal(s): Increase strength Goodrich of Choice Explained: Goodrich of Choice Given: Yes Post-Acute Discharge Plan: OT skilled for SNF, patient in need of 24/7 assistance d/t visual limitations. Awaiting PT note. FOC sent to daughter in law, she will discuss with patient tomorrow. Will need precert, transport, 7000. CM will continue to follow and update transitional plan as needed and appropriate through discharge. SIGNATURE: SHAQUILLE Avila PATIENT NAME: Mel Castillo DATE: July 10, 2024 TIME: 2:38 PM Normal [facility] CBC panel Auto (Bld)on 07-10 Erythrocyte distribution width (RBC) [Ratio] 17.5 % High 11.5-15.0 [facility] Comment on above: Order Comment: Speci men Type: BLOOD SPECIMEN Ordering Facility: [facility] Address: [address] [place] [address] Performed By: #### 2 276-4 #### [facility] CLIA [id number] [address] [place] [address] [place] Hematocrit (Bld) [Volume fraction] 31.7 % Low 36.0-46.0 [facility] Comment on above: Order Comment: Speci men Type: BLOOD SPECIMEN Ordering Facility: [facility] Address: [address] [place] [address] Performed By: #### 2 276-4 #### [facility] CLIA [id number] [address] [place] [address] [place] Hemoglobin (Bld) [Mass/Vol] 9.9 g/dL Low 11.5-15.5 [facility] Comment on above: Order Comment: Speci men Type: BLOOD SPECIMEN Ordering Facility: [facility] Address: [address] [place] [address] Performed By: #### 2 276-4 #### [facility] CLIA [id number] [address] [place] [address] [place] MCH (RBC) [Entitic mass] 26.0 pg Normal 26.0-34.0 [facility] Comment on above: Order Comment: Speci men Type: BLOOD SPECIMEN Ordering Facility: [facility] Address: [address] [place] [address] Performed By: #### 2 276-4 #### [facility] CLIA [id number] [address] [place] [address] [place] MCHC (RBC) [Mass/Vol] 31.2 g/dL Normal 30.5-36.0 [facility] Comment on above: Order Comment: Speci men Type: BLOOD SPECIMEN Ordering Facility: [facility] Address: [address] [place] [address] Performed By: #### 2 276-4 #### [facility] CLIA [id number] [address] [place] [address] [place] MCV (RBC) [Entitic vol] 83.2 fL Normal 80.0-100.0 [facility] Comment on above: Order Comment: Speci men Type: BLOOD SPECIMEN Ordering Facility: [facility] Address: [address] [place] [address] Performed By: #### 2 276-4 #### [facility] CLIA [id number] [address] [place] [address] [place] Nucleated RBC (Bld) [#/Vol] 10*3/uL Normal <0.01 [facility] Comment on above: Order Comment: Speci men Type: BLOOD SPECIMEN Ordering Facility: [facility] Address: [address] [place] [address] Performed By: #### 2 276-4 #### [facility] CLIA [id number] [address] [place] [address] [place] Platelet mean volume (Bld) [Entitic vol] 10.3 fL Normal 9.0-12.7 [facility] Comment on above: Order Comment: Speci men Type: BLOOD SPECIMEN Ordering Facility: [facility] Address: [address] [place] [address] Performed By: #### 2 276-4 #### [facility] CLIA [id number] [address] [place] [address] [place] Platelets (Bld) [#/Vol] 336 10*3/uL Normal 150-400 [facility] Comment on above: Order Comment: Speci men Type: BLOOD SPECIMEN Ordering Facility: [facility] Address: [address] [place] [address] Performed By: #### 2 276-4 #### [facility] CLIA [id number] [address] [place] [address] [place] RBC (Bld) [#/Vol] 3.81 10*6/uL Low 3.90-5.20 [facility] Comment on above: Order Comment: Speci men Type: BLOOD SPECIMEN Ordering Facility: [facility] Address: [address] [place] [address] Performed By: #### 2 276-4 #### [facility] CLIA [id number] [address] [place] [address] [place] WBC (Bld) [#/Vol] 6.35 10*3/uL Normal 3.70-11.00 [facility] Comment on above: Order Comment: Speci men Type: BLOOD SPECIMEN Ordering Facility: [facility] Address: [address] [place] [address] Performed By: #### 2 276-4 #### [facility] CLIA [id number] [address] [place] [address] [place] Renal function 2000 panelon 07-10-2024 Albumin [Mass/Vol] 3.5 g/dL Low 3.9-4.9 [facility] Comment on above: Order Comment: Speci men Type: BLOOD SPECIMEN Ordering Facility: [facility] Address: [address] [place] [address] Performed By: #### 2 4362-6 #### [facility] CLIA [id number] [address] [address] [place] Anion gap [Moles/Vol] 12 mmol/L Normal 8-15 [facility] Comment on above: Order Comment: Speci men Type: BLOOD SPECIMEN Ordering Facility: [facility] Address: [address] [place] [address] Performed By: #### 2 4362-6 #### [facility] CLIA [id number] [address] [place] [address] [place] Calcium [Mass/Vol] 9.0 mg/dL Normal 8.5-10.2 [facility] Comment on above: Order Comment: Speci men Type: BLOOD SPECIMEN Ordering Facility: [facility] Address: [address] [place] [address] Performed By: #### 2 4362-6 #### [facility] CLIA [id number] [address] [place] [address] [place] Chloride [Moles/Vol] 104 mmol/L Normal 98-107 [facility] Comment on above: Order Comment: Speci men Type: BLOOD SPECIMEN Ordering Facility: [facility] Address: [address] [place] [address] Performed By: #### 2 4362-6 #### [facility] CLIA [id number] [address] [place] [address] [place] CO2 [Moles/Vol] 22 mmol/L Normal 22-30 [facility] Comment on above: Order Comment: Speci men Type: BLOOD SPECIMEN Ordering Facility: [facility] Address: [address] [place] [address] Performed By: #### 2 4362-6 #### [facility] CLIA [id number] [address] [place] [address] [place] Creatinine [Mass/Vol] 0.93 mg/dL Normal 0.58-0.96 [facility] Comment on above: Order Comment: Speci men Type: BLOOD SPECIMEN Ordering Facility: [facility] Address: [address] [place] [address] Performed By: #### 2 4362-6 #### [facility] CLIA [id number] [address] [place] [address] [place] Creatinine and Glomerular filtration rate.predicted panel (S/P/Bld) 61 mL/min/1.73m??? Normal >=60 [facility] Comment on above: Order Comment: Speci men Type: BLOOD SPECIMEN Ordering Facility: [facility] Address: [address] [place] [address] Result Comment: Isa mated Glomerular Filtration Rate (eGFR) is calculated using the 2020 CKD-EPI creatinine equation. This equation utilizes serum creatinine, sex, and age as parameters. The creatinine assay has traceable calibration to isotope dilution-mass spectrometry. Refer to KDIGO guidelines for clinical interpretation. In patients with unstable renal function, e.g. those with acute kidney injury, the eGFR may not accurately reflect actual GFR. Performed By: #### 2 4362-6 #### [facility] CLIA [id number] [address] [place] [address] [place] Glucose [Mass/Vol] 102 mg/dL High 74-99 [facility] Comment on above: Order Comment: Rhina mason Type: BLOOD SPECIMEN Ordering Facility: [facility] Address: [address] [place] [address] Result Comment: The [place] [employer] (ADA) provides guidance for cutoff values for fasting glucose and random glucose. The ADA defines fasting as no caloric intake for at least 8 hours. Fasting plasma glucose results between 100 to 125 mg/dL indicate increased risk for diabetes (prediabetes). Fasting plasma glucose results greater than or equal to 126 mg/dL meet the criteria for diagnosis of diabetes. In the absence of unequivocal hyperglycemia, results should be confirmed by repeat testing. In a patient with classic symptoms of hyperglycemia or hyperglycemic crisis, random plasma glucose results greater than or equal to 200 mg/dL meet the criteria for diagnosis of diabetes. Reference: Standards of Medical Care in Diabetes 2016, [place] [employer]. Diabetes Care. 2016.39(Suppl 1). Performed By: #### 2 4362-6 #### [facility] CLIA [id number] [address] [place] [address] [place] Phosphate [Mass/Vol] 2.6 mg/dL Low 2.7-4.8 [facility] Comment on above: Order Comment: Rhina mason Type: BLOOD SPECIMEN Ordering Facility: [facility] Address: [address] [place] [address] Performed By: #### 2 4362-6 #### [facility] CLIA [id number] [address] [place] [address] [place] Potassium [Moles/Vol] 3.9 mmol/L Normal 3.7-5.1 [facility] Comment on above: Order Comment: Speci men Type: BLOOD SPECIMEN Ordering Facility: [facility] Address: [address] [place] [address] Performed By: #### 2 4362-6 #### [facility] CLIA [id number] [address] [place] [address] [place] Sodium [Moles/Vol] 138 mmol/L Normal 136-144 [facility] Comment on above: Order Comment: Speci men Type: BLOOD SPECIMEN Ordering Facility: [facility] Address: [address] [place] [address] Performed By: #### 2 4362-6 #### [facility] CLIA [id number] [address] [place] [address] [place] Urea nitrogen [Mass/Vol] 21 mg/dL Normal 7-21 [facility] Comment on above: Order Comment: Speci men Type: BLOOD SPECIMEN Ordering Facility: [facility] Address: [address] [place] [address] Performed By: #### 2 4362-6 #### [facility] CLIA [id number] [address] [place] [address] [place] THERAPY NTon 07-10-2024 THERAPY NT HNO ID: [id number] Author: SANTIAGO GUZMAN, OT/L Service: Occupational Therapy Author Type: Occupational Therapist Type: Therapy (PT/OT/Speech/Resp) Filed: 07/10/2024 10:00 Note Text: Occupational Therapy Evaluation Summary SERVICE DATE: 07/10/2024 SERVICE TIME: 0840 to 0920 ROOM: [place] [address] OT 6 Clicks Score: 15 DISCHARGE RECOMMENDATIONS Subacute/SNF Recommended Discharge Disposition Comments: SNF rec at this time pending pt visual improvement, AND overall medical course. If pt were to d/c home she would require 24/7 assist d/t visual limitations. SNF rec at this time pending progress. OT to follow. Recommended Discharge Disposition Due to: Functional deficits requiring ongoing therapy service prior to discharge home., ADL impairment Anticipated Discharge Needs: Physical Assist at Home, Supervision at Home Physical Assist at Home for: Transportation, Shopping, Self Care, Meals, Laundry, Cleaning, Transfers, Safety, Medication Management Supervision at Home due to: Decreased safety awareness Recommended Discharge Equipment: To Be Determined ASSESSMENT Response to Therapy Interventions: Good Participation in Activities OT eval completed - pt pleasant throughout. AANDOx3 overall. Education provided. Bed mobility, functional mobility and ADL's completed this morning and wheeled walker utilized. Max vc's required for all tasks d/t visual deficits. Min assist required for functional mobility tasks d/t visual deficits. Pt reports only being able to see "shadows" and occasionally the color while / pediatric associate colors. SNF rec at this time pending pt visual improvement, AND overall medical course. If pt were to d/c home she would require 24/7 assist d/t visual limitations. SNF rec at this time pending progress. Pt states understanding at this time. OT to follow while pt in house. 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 Relevant Past Medical History: + tobacco, A-fib, DVT with IVC filter, COPD. HOME LIVING Patient Lives With: Self/Alone Assistance Available: PRN Entry To Home: Stairs, With Rail Number Of Stairs Into Home: 4 Tub/Shower Type: Grab bars with built in seat. Laundry: Pt was able to complete. Equipment Owned: Grab Bars- Shower, Cane, Walker- Wheeled PRIOR FUNCTIONAL LEVEL Within Functional Limits Patient states that she is normally independent with self care and IADLs. Family helps get groceries. Does not use any DME at baseline. Does not drive, R handed. Baseline Cognition: Oriented to self, Oriented to place, Oriented to time SUBJECTIVE Hello! COGNITION Orientation Deficits: Not oriented to Time Responsiveness: Alert, Awake Follows Commands: 3-step Commands Executive Function Deficits: Safety Awareness Cog 6 Start of Session Total Points (Max Score = 24): 24 (07/10/24) Cog 6 End of Session Total Points (Max Score = 24): 24 (07/10/24) 4AT Score: 0 (07/10/24) Delirium Positive/Negative: Negative (07/10/24) Cognitive Activities Performed: Environmental mods made - lighting adjustments made. THERAPY DIAGNOSIS Reduced mobility-other, Decreased activities of daily living (ADL), Muscle Weakness (generalized) TREATMENT INTERVENTIONS Evaluation, Self Penitentiary Management ([address]) Timed Code Treatment (minutes): 25 Skilled Treatment Time (minutes): 40 TRAINING AND EDUCATION PROVIDED Activity Adaptation/Compensatory Strategies, Altering Thinking Patterns, Assistive Device Use, Bed Mobility, Benefits of In-Hospital Mobility, Cognitive Skills, Command Following, Community Integration Skills, Coping Skills/Resiliency, Delirium Reduction Techniques, Discharge Planning, Energy Conservation, Environmental Modification, Exercise Program, Executive Functions/Problem Solving, Expected Functional Level, Fine Motor Coordination, Functional Mobility Involving ADLs, Grooming Tasks, Health Literacy, Health Management of Chronic Conditions, Insight into Deficits, Orientation, Positioning, Precautions/Restriction s, Role of Occupational Therapy, Visual Scanning/Attention Activities, Treatment Protocol, Transfer - Bed to Chair, Transfer - Sit to Stand, Standing Balance to Improve [place] with ADLs/Self-Care, Sitting Balance to Improve [place] with ADLs/Self-Care, Life Roles/Routines/Habits THERAPEUTIC SKILLS USED Therapeutic Use of Self, Physical Assist, Movement Facilitation, Management of Critical Lines, Tubes and/or Drains FUNCTIONAL STATUS Activities of Daily Living Assist Level Additional Information Feeding Minimal Assistance Grooming Moderate Assistance Bathing Upper Body Minimal Assistance Bathing Lower Body Ma (more content not included)... Normal [facility] CBC panel Auto (Bld)on 07-09 Erythrocyte distribution width (RBC) [Ratio] 17.7 % High 11.5-15.0 [facility] Comment on above: Order Comment: Speci men Type: BLOOD SPECIMEN Ordering Facility: [facility] Address: [address] [place], [place] [address] Performed By: #### 2 4362-6 #### [facility] CLIA [id number] [address] [place] [address] [place] Hematocrit (Bld) [Volume fraction] 33.9 % Low 36.0-46.0 [facility] Comment on above: Order Comment: Speci men Type: BLOOD SPECIMEN Ordering Facility: [facility] Address: [address] [place] [address] Performed By: #### 2 4362-6 #### [facility] CLIA [id number] [address] [place] [address] [place] Hemoglobin (Bld) [Mass/Vol] 10.5 g/dL Low 11.5-15.5 [facility] Comment on above: Order Comment: Speci men Type: BLOOD SPECIMEN Ordering Facility: [facility] Address: [address] [place] [address] Performed By: #### 2 4362-6 #### [facility] CLIA [id number] [address] [place] [address] [place] MCH (RBC) [Entitic mass] 26.6 pg Normal 26.0-34.0 [facility] Comment on above: Order Comment: Speci men Type: BLOOD SPECIMEN Ordering Facility: [facility] Address: [address] [place] [address] Performed By: #### 2 4362-6 #### [facility] CLIA [id number] [address] [place] [address] [place] MCHC (RBC) [Mass/Vol] 31.0 g/dL Normal 30.5-36.0 [facility] Comment on above: Order Comment: Speci men Type: BLOOD SPECIMEN Ordering Facility: [facility] Address: [address] [place] [address] Performed By: #### 2 4362-6 #### [facility] CLIA [id number] [address] [place] [address] [place] MCV (RBC) [Entitic vol] 86.0 fL Normal 80.0-100.0 [facility] Comment on above: Order Comment: Speci men Type: BLOOD SPECIMEN Ordering Facility: [facility] Address: [address] [place] [address] Performed By: #### 2 4362-6 #### [facility] CLIA [id number] [address] [place] [address] [place] Nucleated RBC (Bld) [#/Vol] 10*3/uL Normal <0.01 [facility] Comment on above: Order Comment: Speci men Type: BLOOD SPECIMEN Ordering Facility: [facility] Address: [address] [place] [address] Performed By: #### 2 4362-6 #### [facility] CLIA [id number] [address] [place] [address] [place] Platelet mean volume (Bld) [Entitic vol] 10.4 fL Normal 9.0-12.7 [facility] Comment on above: Order Comment: Speci men Type: BLOOD SPECIMEN Ordering Facility: [facility] Address: [address] [place] [address] Performed By: #### 2 4362-6 #### [facility] CLIA [id number] [address] [place] [address] [place] Platelets (Bld) [#/Vol] 346 10*3/uL Normal 150-400 [facility] Comment on above: Order Comment: Speci men Type: BLOOD SPECIMEN Ordering Facility: [facility] Address: [address] [place] [address] Performed By: #### 2 4362-6 #### [facility] CLIA [id number] [address] [place] [address] [place] RBC (Bld) [#/Vol] 3.94 10*6/uL Normal 3.90-5.20 [facility] Comment on above: Order Comment: Speci men Type: BLOOD SPECIMEN Ordering Facility: [facility] Address: [address] [place] [address] Performed By: #### 2 4362-6 #### [facility] CLIA [id number] [address] [place] [address] [place] WBC (Bld) [#/Vol] 8.22 10*3/uL Normal 3.70-11.00 [facility] Comment on above: Order Comment: Speci men Type: BLOOD SPECIMEN Ordering Facility: [facility] Address: [address] [place] [address] Performed By: #### 2 4362-6 #### [facility] CLIA [id number] [address] [place] [address] [place] Renal function 2000 panelon 07-09-2024 Albumin [Mass/Vol] 3.6 g/dL Low 3.9-4.9 [facility] Comment on above: Order Comment: Speci men Type: BLOOD SPECIMEN Ordering Facility: [facility] Address: [address] [place] [address] Performed By: #### 2 4362-6 #### [facility] CLIA [id number] [address] [place] [address] [place] Anion gap [Moles/Vol] 11 mmol/L Normal 8-15 [facility] Comment on above: Order Comment: Speci men Type: BLOOD SPECIMEN Ordering Facility: [facility] Address: [address] [place] [address] Performed By: #### 2 4362-6 #### [facility] CLIA [id number] [address] [place] [address] [place] Calcium [Mass/Vol] 8.8 mg/dL Normal 8.5-10.2 [facility] Comment on above: Order Comment: Speci men Type: BLOOD SPECIMEN Ordering Facility: [facility] Address: [address] [place] [address] Performed By: #### 2 4362-6 #### [facility] CLIA [id number] [address] [place] [address] [place] Chloride [Moles/Vol] 103 mmol/L Normal 98-107 [facility] Comment on above: Order Comment: Speci men Type: BLOOD SPECIMEN Ordering Facility: [facility] Address: [address] [place] [address] Performed By: #### 2 4362-6 #### [facility] CLIA [id number] [address] [place] [address] [place] CO2 [Moles/Vol] 22 mmol/L Normal 22-30 [facility] Comment on above: Order Comment: Speci men Type: BLOOD SPECIMEN Ordering Facility: [facility] Address: [address] [place] [address] Performed By: #### 2 4362-6 #### [facility] CLIA [id number] [address] [place] [address] [place] Creatinine [Mass/Vol] 0.94 mg/dL Normal 0.58-0.96 [facility] Comment on above: Order Comment: Speci men Type: BLOOD SPECIMEN Ordering Facility: [facility] Address: [address] [place] [address] Performed By: #### 2 4362-6 #### [facility] CLIA [id number] [address] [place] [address] [place] Creatinine and Glomerular filtration rate.predicted panel (S/P/Bld) 60 mL/min/1.73m??? Normal >=60 [facility] Comment on above: Order Comment: Speci men Type: BLOOD SPECIMEN Ordering Facility: [facility] Address: [address] [place] [address] Result Comment: Isa mated Glomerular Filtration Rate (eGFR) is calculated using the 2020 CKD-EPI creatinine equation. This equation utilizes serum creatinine, sex, and age as parameters. The creatinine assay has traceable calibration to isotope dilution-mass spectrometry. Refer to KDIGO guidelines for clinical interpretation. In patients with unstable renal function, e.g. those with acute kidney injury, the eGFR may not accurately reflect actual GFR. Performed By: #### 2 4362-6 #### [facility] CLIA [id number] [address] [place] [address] [place] Glucose [Mass/Vol] 158 mg/dL High 74-99 [facility] Comment on above: Order Comment: Speci men Type: BLOOD SPECIMEN Ordering Facility: [facility] Address: [address] [place] [address] Result Comment: The [place] [employer] (ADA) provides guidance for cutoff values for fasting glucose and random glucose. The ADA defines fasting as no caloric intake for at least 8 hours. Fasting plasma glucose results between 100 to 125 mg/dL indicate increased risk for diabetes (prediabetes). Fasting plasma glucose results greater than or equal to 126 mg/dL meet the criteria for diagnosis of diabetes. In the absence of unequivocal hyperglycemia, results should be confirmed by repeat testing. In a patient with classic symptoms of hyperglycemia or hyperglycemic crisis, random plasma glucose results greater than or equal to 200 mg/dL meet the criteria for diagnosis of diabetes. Reference: Standards of Medical Care in Diabetes 2016, [place] [employer]. Diabetes Care. 2016.39(Suppl 1). Performed By: #### 2 4362-6 #### [facility] CLIA [id number] [address] [place] [address] [place] Phosphate [Mass/Vol] 2.0 mg/dL Low 2.7-4.8 [facility] Comment on above: Order Comment: Speci men Type: BLOOD SPECIMEN Ordering Facility: [facility] Address: [address] [place] [address] Performed By: #### 2 4362-6 #### [facility] CLIA [id number] [address] [place] [address] [place] Potassium [Moles/Vol] 4.1 mmol/L Normal 3.7-5.1 [facility] Comment on above: Order Comment: Rhina mason Type: BLOOD SPECIMEN Ordering Facility: [facility] Address: [address] [place] [address] Performed By: #### 2 4362-6 #### [facility] CLIA [id number] [address] [place] [address] [place] Sodium [Moles/Vol] 136 mmol/L Normal 136-144 [facility] Comment on above: Order Comment: Rhina mason Type: BLOOD SPECIMEN Ordering Facility: [facility] Address: [address] [place] [address] Performed By: #### 2 4362-6 #### [facility] CLIA [id number] [address] [place] [address] [place] Urea nitrogen [Mass/Vol] 18 mg/dL Normal 7-21 [facility] Comment on above: Order Comment: Rhina mason Type: BLOOD SPECIMEN Ordering Facility: [facility] Address: [address] [place] [address] Performed By: #### 2 4362-6 #### [facility] CLIA [id number] [address] [place] [address] [place] CONSULTon 07-08-2024 CONSULT HNO ID: [id number] Author: JARED GILMORE MD Service: Ophthalmology Author Type: Resident Type: Consults Filed: 07/08/2024 14:39 Note Text: Attestation signed by Jared Gilmore MD at 07/08/2024 2:39 PM I have confirmed and edited as necessary the relevant ophthalmic history, ROS, and the neuro exam findings as obtained by others. I have not seen or examined this patient but I have discussed the case and the management of this patient's care with the Resident/Fellow. I also have reviewed and agree with the assessment and plan as stated above and agree with all of its relevant components. Jared Gilmore MD Vitreoretinal Surgery Fellow OPHTHALMOLOGY CONSULT PROGRESS NOTE Patient Name: Mel Castillo Patient Admission Date: 07/07/2024 Today's Date: 07/08/2024 4:53 AM Interval history: - CT orbits reviewed with good globe contour no evidence of open globe, known choroidal detachments present - Patient received first dose of oral prednisone yesterday - Feels like pain has significantly improved and feels improvement in vision about to make out my badge and see me moving now Assessment/Plan: PMH: COPD, HLD, HTN, Afib (on Lovenox currently previously has been on warfarin and eliquis but ?failed both), CKD 3, L retinal detachment, nicotine use, severe LE PAD, recurrent embolic events, 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), hx DVT s/p right venous thrombectomy, 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, right eye Inferior exudative retinal detachment, right eye PCIOL Dislocation, right eye - 06/10/24 presented to OSH with dizziness, dysarthria and dysphagia found to have acute infarcts in the left hippocampal head and the right cerebellar hemisphere - 06/19/24: Admitted to rehab center and discharged home 07/03/24, had significant right eye tearing but no pain or visual changes - 07/04/2024 noted blurriness in her vision, that subsequently slightly improved over the course of the day - 07/05/24 woke up with severe pain behind her right eye, complete loss of vision (seeing purple/red), swelling of her right eye with significant redness, nausea and vomiting - Presented to the ED, evaluated by ophthalmology (Dr. 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, multiple peripheral iridotomy's performed, with subsequent improvement in intraocular pressure to 37 - Per patient, pain improved somewhat and vision improved following LPI - Next day 07/06/24, she experienced worsening of pain and vision that has been constant since then - Patient denies any trauma to the eye, no recent falls or incidences where eye was hit - Currently eye is tender to touch with pain with EOM - Called patients family spoke to daughter in law who confirms no trauma Assessment: - Challenging clinical picture - Patient may have developed hemorraghic choroidals that caused angle closure and elevated IOP which lead to her initial presentation however no real inciting factor for choroidals, could they have been spontaneous? - Alternatively should pressure differential following LPI have induced hemorrhagic choroidals, additionally no explanation for acute closure as initial pathology given pseudophakic lens status - Patient adamantly denies any trauma but did have significant eye tearing with rubbing of eye day prior to development of symptoms - Cautiously evaluated for open globe given bullous CARLOS, small inferior hyphema, and IOL dislocation however if IOP at presentation was 80 and there is no history of trauma, then lower suspicion - Eye is likely still in significant pain from hemorrhagic choroidals - Will plan to treat with steroids and monitor choroidals closely - If no improvement in symptoms may consider surgical exploration Plan - Continue oral prednisone 40mg daily - Continue atropine BID OD - Continue moxifloxacin q2 hours while awake - Continue brimonidine TID OD - Continue cosopt BID OD - Ophthalmology to follow with daily examinations - Ok to eat today, keep NPO after midnight again Phthisical, left eye - History of two prior surgeries for retinal detachment - 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 Normal [facility] [id number] 07-07-2024 [id number] Normal [facility] BASIC METABOLIC PANELon 06-18 Anion gap [Moles/Vol] 4 mmol/L Normal 3-13 [facility] Comment on above: Performed By: #### L AB15 ####Improvement Auditor: VELMA VALADEZ ([phone])[facility] ([facility])[address] [place] [address] Calcium [Mass/Vol] 8.7 mg/dL Low 8.8-10.0 [facility] Comment on above: Performed By: #### L AB15 ####Improvement Auditor: VELMA VALADEZ ([id number])[facility] ([facility])[address] [place] [address] Chloride [Moles/Vol] 111 mmol/L High 98-107 [facility] Comment on above: Performed By: #### L AB15 ####Improvement Auditor: VELMA VALADEZ ([phone])[facility] ([facility])[address] [place] [address] CO2 [Moles/Vol] 23 mmol/L Normal 23-31 [facility] Comment on above: Performed By: #### L AB15 ####Improvement Auditor: VELMA VALADEZ ([phone])[facility] ([facility])[address] [place] [address] Creatinine [Mass/Vol] 0.84 mg/dL Normal 0.57-1.11 [facility] Comment on above: Performed By: #### L AB15 ####Improvement Auditor: VELMA VALADEZ ([phone])[facility])[address] [place] [address] GLOMERULAR FILTRATION RATE ML/MIN/1.73 SQ M.PREDICTED 68.6 mL/min/1.73m*2 Normal >60.0 [facility] Comment on above: Result Comment: Calc ulation based on the Chronic Kidney Disease Epidemiology Collaboration (CKD-EPI) equation refit without adjustment for race Performed By: #### L AB15 ####Improvement Auditor: VELMA VALADEZ ([phone])[facility])[address] [place] [address] Glucose [Mass/Vol] 102 mg/dL Normal 82-115 [facility] Comment on above: Performed By: #### L AB15 ####Improvement Auditor: VELMA VALADEZ ([phone])[facility])[address] [place] [address] Potassium [Moles/Vol] 4.0 mmol/L Normal 3.5-5.1 [facility] Comment on above: Result Comment: [facility] potassium values may be up to 0.5 mmol/L lower than serum values. Performed By: #### L AB15 ####Improvement Auditor: VELMA VALADEZ ([phone])[address] Sodium [Moles/Vol] 138 mmol/L Normal 136-145 [facility] Comment on above: Performed By: #### L AB15 ####Improvement Auditor: VELMA VALADEZ ([id number])[address] Urea nitrogen [Mass/Vol] 19 mg/dL Normal 9-23 [facility] Comment on above: Performed By: #### L AB15 ####Improvement Auditor: VELMA [id number])[address] Basic metabolic 1998 panelon 07-07-2024 Anion gap [Moles/Vol] 4 mmol/L 3 - 13 mmol/L [facility] Calcium [Mass/Vol] 8.7 mg/dL Low 8.8 - 10. 0 mg/dL [facility] Chloride [Moles/Vol] 111 mmol/L High 98 - 10 7 mmol/L [facility] CO2 [Moles/Vol] 23 mmol/L 23 - 31 mmol/L [facility] Creatinine [Mass/Vol] 0.84 mg/dL 0.57 - 1.11 mg/dL [facility] GFR/1.73 sq M.predicted (S/P/Bld) [Vol rate/Area] 68.6 mL/min - PINF [facility] Comment on above: Calculation based on the Chronic Kidney Disease Epidemiology Collaboration (CKD-EPI) equation refit without adjustment for race Glucose [Mass/Vol] 102 mg/dL 82 - 115 mg/dL [facility] Interpretation and review of laboratory results Abnormal [facility] Potassium [Moles/Vol] 4 mmol/L 3.5 - 5.1 mmol/L [facility] Comment on above: Plasma potassium chris ues may be up to 0.5 mmol/L lower than serum values. Sodium [Moles/Vol] 138 mmol/L 136 - 145 mmol/L [facility] Urea nitrogen [Mass/Vol] 19 mg/dL 9 - 23 mg/dL [facility] CBC W Auto Differential pane l (Bld)Ordered By: Devika Eisenberg on 07-07-2024 Basophils (Bld) [#/Vol] 0 10*3/uL 0.0 - 0.2 10*3/uL [facility] Basophils/100 WBC (Bld) 0.4 % 0.0 - 2.0 % [facility] Eosinophils (Bld) [#/Vol] 0.1 10*3/uL 0.0 - 0.5 10*3/uL [facility] Eosinophils/100 WBC (Bld) 1.3 % 0.0 - 6.0 % [facility] Erythrocyte distribution width (RBC) [Ratio] 17.6 % High 11.5 - 15.0 % [facility] Hematocrit (Bld) [Volume fraction] 29.9 % Low 35.0 - 47.0 % [facility] Hemoglobin (Bld) [Mass/Vol] 9.1 g/dL Low 11.7 - 16.0 g/dL [facility] Immature granulocytes (Bld) [#/Vol] 0 10*3/uL NINF - 0.1 10*3/uL [facility] Immature granulocytes/100 WBC (Bld) 0.2 % 0.0 - 2.0 % [facility] Interpretation and review of laboratory results Abnormal [facility] Lymphocytes (Bld) [#/Vol] 1.2 10*3/uL 1.0 - 4.3 10*3/uL [facility] Lymphocytes/100 WBC (Bld) 22 % 15.0 - 45.0 % [facility] MCH (RBC) [Entitic mass] 25.9 pg Low 26.0 - 34.0 pg [facility] MCHC (RBC) [Mass/Vol] 30.4 % Low 30.5 - 36.0 % [facility] MCV (RBC) [Entitic vol] 84.9 fL 77.0 - 99.0 fL [facility] Monocytes (Bld) [#/Vol] 0.6 10*3/uL 0.0 - 0.9 10*3/uL [facility] Monocytes/100 WBC (Bld) 10 % 5.0 - 13.0 % [facility] Neutrophils (Bld) [#/Vol] 3.7 10*3/uL 1.8 - 7.5 10*3/uL [facility] Neutrophils/100 WBC (Bld) 66.1 % 38.0 - 82.0 % [facility] Nucleated RBC/100 WBC (Bld) [Ratio] 0 % [facility] Platelet mean volume (Bld) [Entitic vol] 9.8 fL 9.0 - 12.7 fL [facility] Platelets (Bld) [#/Vol] 301 10*3/uL 140 - 440 10*3/uL [facility] RBC (Bld) [#/Vol] 3.52 10*6/uL Low 3.80 - 5.2 0 10*6/uL [facility] WBC (Bld) [#/Vol] 5.6 10*3/uL 3.6 - 10.7 10*3/uL [facility] CBC WITH AUTO DIFFERENTIALon 07-07-2024 Basophils (Bld) [#/Vol] 0.0 10*3/uL Normal 0.0-0.2 [facility] Comment on above: Performed By: #### L [id number] ####Improvement Auditor: VELMA VALADEZ ([phone])[facility] ([address] Basophils/100 WBC (Bld) 0.4 % Normal 0.0-2.0 [facility] Comment on above: Performed By: #### L [id number] ####Improvement Auditor: VELMA VALADEZ ([id number])[facility] [address] Eosinophils (Bld) [#/Vol] 0.1 10*3/uL Normal 0.0-0.5 [facility] Comment on above: Performed By: #### L [id number] ####Improvement Auditor: VELMA VALADEZ ([phone])[facility])[address] [place] [address] Eosinophils/100 WBC (Bld) 1.3 % Normal 0.0-6.0 [facility] Comment on above: Performed By: #### L [id number] ####Improvement Auditor: VELMA VALADEZ ([id number])[address] Erythrocyte distribution width (RBC) [Ratio] 17.6 % High 11.5-15.0 [facility] Comment on above: Performed By: #### L [id number] ####Improvement Auditor: VELMA VALADEZ ([id number])[address] Hematocrit (Bld) [Volume fraction] 29.9 % Low 35.0-47.0 [facility] Comment on above: Performed By: #### L [id number] ####Improvement Auditor: VEMLA VALADEZ ([id number])[address] Hemoglobin (Bld) [Mass/Vol] 9.1 g/dL Low 11.7-16.0 [facility] Comment on above: Performed By: #### L [id number] ####Improvement Auditor: VELMA VALADEZ ([id number])[facility])[address] [place] [address] IMMATURE GRANS % 0.2 % Normal 0.0-2.0 [facility] Comment on above: Performed By: #### L [id number] ####Improvement Auditor: VELMA VALADEZ ([id number])[address] IMMATURE GRANS ABSOLUTE 0.0 10*3/uL Normal <0.1 [facility] Comment on above: Performed By: #### L [id number] ####Improvement Auditor: VELMA VALADEZ ([id number])[facility])[address] [place] [address] Lymphocytes (Bld) [#/Vol] 1.2 10*3/uL Normal 1.0-4.3 [facility] Comment on above: Performed By: #### L [id number] ####Improvement Auditor: VELMA VALADEZ ([id number])[facility])[address] [place] [address] Lymphocytes/100 WBC (Bld) 22.0 % Normal 15.0-45.0 [facility] Comment on above: Performed By: #### L [id number] ####Improvement Auditor: VELMA VALADEZ ([id number])[facility])[address] [place] [address] MCH (RBC) [Entitic mass] 25.9 pg Low 26.0-34.0 [facility] Comment on above: Performed By: #### L [id number] ####Improvement Auditor: VELMA VALADEZ ([phone])[facility])[address] [place] [address] MCHC 30.4 % Low 30.5-36.0 [facility] Comment on above: Performed By: #### L [id number] ####Improvement Auditor: VELMA VALADEZ ([id number])[facility])[address] [place] [address] MCV (RBC) [Entitic vol] 84.9 fL Normal 77.0-99.0 [facility] Comment on above: Performed By: #### L [id number] ####Improvement Auditor: VELMA VALADEZ ([id number])[facility])[address] [place] [address] Monocytes (Bld) [#/Vol] 0.6 10*3/uL Normal 0.0-0.9 [facility] Comment on above: Performed By: #### L [id number] ####Improvement Auditor: VELMA VALADEZ ([id number])[facility] [place] [address] Monocytes/100 WBC (Bld) 10.0 % Normal 5.0-13.0 [facility] Comment on above: Performed By: #### L [id number] ####Improvement Auditor: VELMA VALADEZ ([id number])[facility] ([facility])[address] [place] [address] NEUTROPHILS ABSOLUTE 3.7 10*3/uL Normal 1.8-7.5 [facility] Comment on above: Performed By: #### L [id number] ####Improvement Auditor: VELMA VALADEZ ([id number])[facility] ([facility])[address] [place] [address] Neutrophils/100 WBC (Bld) 66.1 % Normal 38.0-82.0 [facility] Comment on above: Performed By: #### L [id number] ####Improvement Auditor: VELMA VALADEZ ([id number])[facility] [place] [address] NRBC 0.0 /100 WBCs Normal 0.0-2.0 [facility] Comment on above: Performed By: #### L [id number] ####Improvement Auditor: VELMA VALADEZ ([id number])[facility])[address] [place] [address] Platelet mean volume (Bld) [Entitic vol] 9.8 fL Normal 9.0-12.7 [facility] Comment on above: Performed By: #### L [id number] ####Improvement Auditor: VELMA VALADEZ ([id number])[facility] ([facility])[address] [place] [address] [place] Platelets (Bld) [#/Vol] 301 10*3/uL Normal 140-440 [facility] Comment on above: Performed By: #### L [id number] ####Improvement Auditor: VELMA VALADEZ ([id number])[facility] ([facility])[address] [place] [address] RBC (Bld) [#/Vol] 3.52 10*6/uL Low 3.80-5.20 [facility] Comment on above: Performed By: #### L [id number] ####Improvement Auditor: VELMA VALADEZ ([id number])[facility] ([facility])[address] [place] [address] WBC (Bld) [#/Vol] 5.6 10*3/uL Normal 3.6-10.7 [facility] Comment on above: Performed By: #### L [id number] ####Improvement Auditor: VELMA VALADEZ ([id number])[facility] ([facility])[address] [place] [address] CBC panel Auto (Bld)on 07-07 Erythrocyte distribution width (RBC) [Ratio] 17.5 % High 11.5-15.0 [facility] Comment on above: Order Comment: Speci men Type: BLOOD SPECIMEN Ordering Facility: [facility] Address: [address] [place] [address] Performed By: #### 2 4362-6 #### [facility] CLIA [id number] [address] [place] [address] [place] Hematocrit (Bld) [Volume fraction] 32.7 % Low 36.0-46.0 [facility] Comment on above: Order Comment: Speci men Type: BLOOD SPECIMEN Ordering Facility: [facility] Address: [address] [place] [address] Performed By: #### 2 4362-6 #### [facility] CLIA [id number] [address] [place] [address] [place] Hemoglobin (Bld) [Mass/Vol] 10.2 g/dL Low 11.5-15.5 [facility] Comment on above: Order Comment: Speci men Type: BLOOD SPECIMEN Ordering Facility: [facility] Address: [address] [place] [address] Performed By: #### 2 4362-6 #### [facility] CLIA [id number] [address] [place] [address] [place] MCH (RBC) [Entitic mass] 26.8 pg Normal 26.0-34.0 [facility] Comment on above: Order Comment: Speci men Type: BLOOD SPECIMEN Ordering Facility: [facility] Address: [address] [place] [address] Performed By: #### 2 4362-6 #### [facility] CLIA [id number] [address] [place] [address] [place] MCHC (RBC) [Mass/Vol] 31.2 g/dL Normal 30.5-36.0 [facility] Comment on above: Order Comment: Speci men Type: BLOOD SPECIMEN Ordering Facility: [facility] Address: [address] [place] [address] Performed By: #### 2 4362-6 #### [facility] CLIA [id number] [address] [place] [address] [place] MCV (RBC) [Entitic vol] 86.1 fL Normal 80.0-100.0 [facility] Comment on above: Order Comment: Speci men Type: BLOOD SPECIMEN Ordering Facility: [facility] Address: [address] [place] [address] Performed By: #### 2 4362-6 #### [facility] CLIA [id number] [address] [place] [address] [place] Nucleated RBC (Bld) [#/Vol] 10*3/uL Normal <0.01 [facility] Comment on above: Order Comment: Speci men Type: BLOOD SPECIMEN Ordering Facility: [facility] Address: [address] [place] [address] Performed By: #### 2 4362-6 #### [facility] CLIA [id number] [address] [place] [address] [place] Platelet mean volume (Bld) [Entitic vol] 9.8 fL Normal 9.0-12.7 [facility] Comment on above: Order Comment: Speci men Type: BLOOD SPECIMEN Ordering Facility: [facility] Address: [address] [place] [address] Performed By: #### 2 4362-6 #### [facility] CLIA [id number] [address] [place] [address] [place] Platelets (Bld) [#/Vol] 284 10*3/uL Normal 150-400 [facility] Comment on above: Order Comment: Speci men Type: BLOOD SPECIMEN Ordering Facility: [facility] Address: [address] [place] [address] Performed By: #### 2 4362-6 #### [facility] CLIA [id number] [address] [place] [address] [place] RBC (Bld) [#/Vol] 3.80 10*6/uL Low 3.90-5.20 [facility] Comment on above: Order Comment: Speci men Type: BLOOD SPECIMEN Ordering Facility: [facility] Address: [address] [place] [address] Performed By: #### 2 4362-6 #### [facility] CLIA [id number] [address] [place] [address] [place] WBC (Bld) [#/Vol] 5.72 10*3/uL Normal 3.70-11.00 [facility] Comment on above: Order Comment: Speci men Type: BLOOD SPECIMEN Ordering Facility: [facility] Address: [address] [place] [address] Performed By: #### 2 4362-6 #### [facility] CLIA [id number] [address] [place] [address] [place] [address] ORBITS WO IVCONon 12-21-[address] ORBITS WO IVCON * * *Final Report* * * DATE OF EXAM: Jul 07 2024 8:21PM [facility] [place] ORBITS WO IVCON / PROCEDURE REASON: Ocular pain * * * * Physician Interpretation * * * * EXAMINATION: CT ORBITS WO IVCON CLINICAL HISTORY: Ocular pain. 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 Technique: Spiral high resolution axial unenhanced images were obtained through the facial bones with sagittal and coronal planar reconstructions. MQ: [id number]_1 CT Radiation dose: Integrated Dose-Length Product (DLP) for this visit = 343 mGy*cm. CT Dose Reduction Employed: No dose reduction techniques were required COMPARISON: CT brain 06/12/2024, MRI brain 06/11/2024 RESULT: Localizer images: No significant findings. Soft Tissues: Asymmetric thickening/swelling of right eyelids compared to left. Facial bones: No evidence of an acute fracture in the visualized facial bones. Orbits: New from 06/12/2024 CT are multiple lobulated right subretinal high attenuation collections suggesting subretinal hemorrhage. No evidence of an acute fracture. Right preseptal/lid swelling as above. No significant right postseptal inflammatory changes or stranding. Unchanged appearance of left globe, again with homogeneously increased attenuation of the vitreous and scattered peripheral calcifications/phthisis bulbi. Paranasal Sinuses: The paranasal sinuses are clear. Foreign Bodies: No evidence of radiopaque foreign bodies. Other: No evidence of a remote fracture. No lytic or blastic process seen in the facial bones. IMPRESSION: Findings of the right globe subretinal hemorrhage as described compatible with clinical description of retinal detachment. Likely associated preseptal soft tissue thickening with no significant right orbital post septal inflammatory changes. Unchanged appearance of left globe/phthisis bulbi. Manager Hris: PSCB Transcribe Date/Time: Jul 07 2024 8:24P Dictated by : ULICES LEBLANC MD This examination was interpreted and the report reviewed and electronically signed by: DE JAIN MD on Jul 07 2024 9:18PM EST [id number] Normal [facility] HISTORY PHYSICALon HISTORY PHYSICAL HNO ID: [id number] Author: FELICIA LEVY MD Service: General Internal Medicine Author Type: Resident Type: H&P Filed: 07/07/2024 15:01 Note Text: Attestation signed by Felicia Levy MD at 07/07/2024 3:01 PM Attending Note I evaluated the patient and personally participated in the whatley components. I agree with the resident's findings and plan as documented and have discussed the case and management of the patient's care with the resident. Signature: Felicia Levy MD Date: 07/07/2024 Time: 3:01 PM DEPARTMENT OF HOSPITAL MEDICINE HISTORY AND PHYSICAL EXAM SERVICE DATE: 07/07/2024 SERVICE TIME: 3:01 PM Primary Care Physician: Jared Evans MD, MD PATIENT NAME: Mel Castillo DATE OF ADMISSION: 07/07/2024 11:35 AM ADMITTING PHYSICIAN: Manas Carmona MD PRIMARY SERVICE: Dae Chaudhry COVERAGE: DAY (Weekdays 7am to 5pm/Weekends 7am to 3pm): Please page Yuri Keith MD NIGHT (days 5pm to 7am/Weekends 3pm to 7am): Please page on-call resident [phone] (Jonathan Chaudhry Subjective CHIEF COMPLAINT: Acute angle closure glaucoma HPI: Mel Castillo is a 83 year old female with a PMH of COPD, HTN, Afib (on Lovenox), CKD Stage 3, L retinal detachment, recurrent embolic events, and 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 Ms. Pop shares that she returned home from acute rehab on July 03 and first noticed R eye tearing. She woke suddenly around 3 am on 07/04 to severe R eye pain and vision loss. Could only see purple and black out of her R eye. Further characterized the pain as throbbing and localized largely around the eyes 9/10 in intensity. Noted associated eye swelling, pain directly behind the eye, as well as intractable headache, nausea, and vomiting. She pressed her life alert button and presented to the ED immediately for further evaluation. Vitals at that time were notable for elevated blood pressure 197/99, otherwise stable, afebrile. Labs unremarkable. 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 CT perfusion showed no regional areas of infarct. MRI brain regions of old infarct in the cerebellar hemispheres and right middle cerebral artery territory. 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 She was subsequently taken by the catering manager for peripheral iridotomy's, which helped to reduce elevated intraocular pressure down to 10.2 mmHg in the R eye. Furthermore, was evaluated by stroke team at [facility] who reviewed her images and believed her headache and severe vision loss was secondary to the acute closure glaucoma and not stroke. Ultimately, it was determined that due to vision now being reduced to only one eye she required retinal specialist at [facility] for repair of acute retinal detachment on the right. PAST MEDICAL HISTORY Diagnosis Date Acute bacterial sialadenitis Chronic atrial fibrillation (HCC) GERD (gastroesophageal reflux disease) HTN (hypertension) Hypothyroidism PAST SURGICAL HISTORY Procedure Laterality Date DANDC, DIAG AND/OR THERAPEUTIC NASAL ENDOS,DIAG,UNI/ BILATERAL TOTAL ABDOM HYSTERECTOMY FAMILY HISTORY Problem Relation Age of Onset Lung Cancer Father Cancer Brother Social History Tobacco Use Smoking status: Every Day Current packs/day: 0.50 Average packs/day: 0.5 packs/day for 50.0 years (25.0 ttl pk-yrs) Types: Cigarettes Passive exposure: Never Smokeless tobacco: Never Substance Use Topics Alcohol use: Not Currently Comment: occ Drug use: Never PRIOR TO ADMISSION MEDICATIONS: enoxaparin (LOVENOX) 80 mg/0.8 mL, Inject 0.7 mL subcutaneously every 12 hours., Disp: , Rfl: , 07/06/2024 atorvastatin (LIPITOR) 80 mg tablet, Take 1 tablet by mouth daily at bedtime., Disp: , Rfl: , 07/06/2024 lisinopril (ZESTRIL) 10 mg tablet, Take 1 tablet by mouth once daily., Disp: , Rfl: , 07/06/2024 metoprolol tartrate, short acting, (LOPRESSOR) 25 mg tablet, Take 0.5 tablets by mouth every 12 hours., Disp: , Rfl: , 07/06/2024 lidocaine (SALONPAS) 4 % patch, Apply 1 Patch as directed once daily. APPLY TO: SHOULDER Left - Remove patch after 12 hours., Disp: , Rfl: , 07/06/2024 albuterol HFA (PROVENTIL HFA, VENTOLIN HFA) 90 mcg/actuation inhaler, Inhale 2 Puffs as instructed every 6 hours as needed for wheezing/shortness of breath., Disp: , Rfl: , 07/06/2024 snwmwlhrmrx-fnwgzwpui-x ilanter (TRELEGY ELLIPTA) 100-62.5-25 mcg inhalation powder, Inhale 1 (more content not included)... Normal [facility] NURSING PROGon 07-07-2024 NURSING PROG HNO ID: [id number] Author: SONNY CASTILLO RN Service: Nursing Author Type: Registered Nurse Type: Nursing Progress Note Filed: 07/08/2024 04:35 Note Text: Other: Patient stated that while she was at CT scan her head got bumped. Patient denies pain in the area where her head was bumped. Patient endorses right eye pain. She had this pain prior to CT scan. No abrasions or contusions noted. Dae team on-call notified. No new orders given at this time. Will continue to monitor. Instructed patient to notify nurse if she experiences pain. Normal [facility] NURSING PROG HNO ID: [id number] Author: WINIFRED HILLS RN Service: ? Author Type: Registered Nurse Type: Nursing Progress Note Filed: 07/07/2024 12:15 Note Text: Transfer Note: PATIENT NAME: Mel Castillo Patient Location: H060 [facility]/H060-31 Room: H060-31 Patient transferred into room/unit H60-31 in stable condition. Actions taken: Team notified. Patient belongings with patient. Pt oriented to the floor policy and fall prevention protocol. Call light within reach. Normal [facility] Nursing Noteon 07-07-2024 Nursing Note Report called to [facility]. Normal [facility] Progress Noteon 07-07-2024 Progress Note Nutrition rescreen completed. Chart reviewed. Patient to be monitored and followed by the diet orthodontic laboratory technician. Normal [facility] Renal function 2000 panelon 07-07-2024 Albumin [Mass/Vol] 3.7 g/dL Low 3.9-4.9 [facility] Comment on above: Order Comment: Speci men Type: BLOOD SPECIMEN Ordering Facility: [facility] Address: [address] [place] [address] Performed By: #### 2 4362-6 #### [facility] CLIA [id number] [address] [place] [address] [place] Anion gap [Moles/Vol] 12 mmol/L Normal 8-15 [facility] Comment on above: Order Comment: Speci men Type: BLOOD SPECIMEN Ordering Facility: [facility] Address: [address] [place] [address] Performed By: #### 2 4362-6 #### [facility] CLIA [id number] [address] [place] [address] [place] Calcium [Mass/Vol] 9.2 mg/dL Normal 8.5-10.2 [facility] Comment on above: Order Comment: Speci men Type: BLOOD SPECIMEN Ordering Facility: [facility] Address: [address] [place] [address] Performed By: #### 2 4362-6 #### [facility] CLIA [id number] [address] [place] [address] [place] Chloride [Moles/Vol] 107 mmol/L Normal 98-107 [facility] Comment on above: Order Comment: Speci men Type: BLOOD SPECIMEN Ordering Facility: [facility] Address: [address] [place] [address] Performed By: #### 2 4362-6 #### [facility] CLIA [id number] [address] [place] [address] [place] CO2 [Moles/Vol] 20 mmol/L Low 22-30 [facility] Comment on above: Order Comment: Speci men Type: BLOOD SPECIMEN Ordering Facility: [facility] Address: [address] [place] [address] Performed By: #### 2 4362-6 #### [facility] CLIA [id number] [address] [place] [address] [place] Creatinine [Mass/Vol] 0.82 mg/dL Normal 0.58-0.96 [facility] Comment on above: Order Comment: Speci men Type: BLOOD SPECIMEN Ordering Facility: [facility] Address: [address] [place] [address] Performed By: #### 2 4362-6 #### [facility] CLIA [id number] [address] [place] [address] [place] Creatinine and Glomerular filtration rate.predicted panel (S/P/Bld) 71 mL/min/1.73m??? Normal >=60 [facility] Comment on above: Order Comment: Speci men Type: BLOOD SPECIMEN Ordering Facility: [facility] Address: [address] [place] [address] Result Comment: Isa mated Glomerular Filtration Rate (eGFR) is calculated using the 2020 CKD-EPI creatinine equation. This equation utilizes serum creatinine, sex, and age as parameters. The creatinine assay has traceable calibration to isotope dilution-mass spectrometry. Refer to KDIGO guidelines for clinical interpretation. In patients with unstable renal function, e.g. those with acute kidney injury, the eGFR may not accurately reflect actual GFR. Performed By: #### 2 4362-6 #### [facility] CLIA [id number] [address] [place] [address] [place] Glucose [Mass/Vol] 106 mg/dL High 74-99 [facility] Comment on above: Order Comment: Rhina mason Type: BLOOD SPECIMEN Ordering Facility: [facility] Address: [address] [place] [address] Result Comment: The [place] Diabetes Association (ADA) provides guidance for cutoff values for fasting glucose and random glucose. The ADA defines fasting as no caloric intake for at least 8 hours. Fasting plasma glucose results between 100 to 125 mg/dL indicate increased risk for diabetes (prediabetes). Fasting plasma glucose results greater than or equal to 126 mg/dL meet the criteria for diagnosis of diabetes. In the absence of unequivocal hyperglycemia, results should be confirmed by repeat testing. In a patient with classic symptoms of hyperglycemia or hyperglycemic crisis, random plasma glucose results greater than or equal to 200 mg/dL meet the criteria for diagnosis of diabetes. Reference: Standards of Medical Care in Diabetes 2016, [place] [employer]. Diabetes Care. 2016.39(Suppl 1). Performed By: #### 2 4362-6 #### [facility] CLIA [id number] [address] [place] [address] [place] Phosphate [Mass/Vol] 3.0 mg/dL Normal 2.7-4.8 [facility] Comment on above: Order Comment: Rhina mason Type: BLOOD SPECIMEN Ordering Facility: [facility] Address: [address] [place] [address] Performed By: #### 2 4362-6 #### [facility] CLIA [id number] [address] [place] [address] [place] Potassium [Moles/Vol] 4.3 mmol/L Normal 3.7-5.1 [facility] Comment on above: Order Comment: Rhina mason Type: BLOOD SPECIMEN Ordering Facility: [facility] Address: [address] [place] [address] Performed By: #### 2 4362-6 #### [facility] CLIA [id number] [address] [place] [address] [place] Sodium [Moles/Vol] 139 mmol/L Normal 136-144 [facility] Comment on above: Order Comment: Speci men Type: BLOOD SPECIMEN Ordering Facility: [facility] Address: [address] [place] [address] Performed By: #### 2 4362-6 #### [facility] CLIA [id number] [address] [place] [address] [place] Urea nitrogen [Mass/Vol] 16 mg/dL Normal 7-21 [facility] Comment on above: Order Comment: Speci men Type: BLOOD SPECIMEN Ordering Facility: [facility] Address: [address] [place] [address] Performed By: #### 2 4362-6 #### [facility] CLIA [id number] [address] [place] [address] [place] [id number] 07-06-2024 [id number] Normal [facility] BASIC METABOLIC PANELon 06-18 Anion gap [Moles/Vol] 9 mmol/L Normal 3-13 [facility] Comment on above: Performed By: #### L AB15 ####Improvement Auditor: VELMA VALADEZ ([id number])[facility] [place] [address] Calcium [Mass/Vol] 8.9 mg/dL Normal 8.8-10.0 [facility] Comment on above: Performed By: #### L AB15 ####Improvement Auditor: VELMA VALADEZ ([phone])[facility])[address] [place] [address] [place] Chloride [Moles/Vol] 113 mmol/L High 98-107 [facility] Comment on above: Performed By: #### L AB15 ####Improvement Auditor: VELMA VALADEZ ([id number])[facility])[address] [place] [address] [place] CO2 [Moles/Vol] 18 mmol/L Low 23-31 [facility] Comment on above: Performed By: #### L AB15 ####Improvement Auditor: VELMA VALADEZ ([id number])[facility])[address] [place] [address] Creatinine [Mass/Vol] 0.86 mg/dL Normal 0.57-1.11 [facility] Comment on above: Performed By: #### L AB15 ####Improvement Auditor: VELMA VALADEZ ([phone])[facility])[address] [place] [address] GLOMERULAR FILTRATION RATE ML/MIN/1.73 SQ M.PREDICTED 66.7 mL/min/1.73m*2 Normal >60.0 [facility] Comment on above: Result Comment: Calc ulation based on the Chronic Kidney Disease Epidemiology Collaboration (CKD-EPI) equation refit without adjustment for race Performed By: #### L AB15 ####Improvement Auditor: VELMA VALADEZ ([id number])[facility])[address] [place] [address] Glucose [Mass/Vol] 74 mg/dL Low 82-115 [facility] Comment on above: Performed By: #### L AB15 ####Improvement Auditor: VELMA VALADEZ ([id number])[facility])[address] [place] [address] Potassium [Moles/Vol] 4.5 mmol/L Normal 3.5-5.1 [facility] Comment on above: Result Comment: [facility] potassium values may be up to 0.5 mmol/L lower than serum values. Performed By: #### L AB15 ####Improvement Auditor: VELMA VALADEZ ([phone])[facility])[address] [place] [address] Sodium [Moles/Vol] 140 mmol/L Normal 136-145 [facility] Comment on above: Performed By: #### L AB15 ####Improvement Auditor: VELMA VALADEZ ([id number])[facility])[address] [place] [address] [place] Urea nitrogen [Mass/Vol] 16 mg/dL Normal 9-23 [facility] Comment on above: Performed By: #### L AB15 ####Improvement Auditor: VELMA VALADEZ ([id number])[facility] ([address] Basic metabolic 1998 panelon 07-06-2024 Anion gap [Moles/Vol] 9 mmol/L 3 - 13 mmol/L [facility] Calcium [Mass/Vol] 8.9 mg/dL 8.8 - 10. 0 mg/dL [facility] Chloride [Moles/Vol] 113 mmol/L High 98 - 10 7 mmol/L [facility] CO2 [Moles/Vol] 18 mmol/L Low 23 - 31 mmol/L [facility] Creatinine [Mass/Vol] 0.86 mg/dL 0.57 - 1.11 mg/dL [facility] GFR/1.73 sq M.predicted (S/P/Bld) [Vol rate/Area] 66.7 mL/min - PINF [facility] Comment on above: Calculation based on the Chronic Kidney Disease Epidemiology Collaboration (CKD-EPI) equation refit without adjustment for race Glucose [Mass/Vol] 74 mg/dL Low 82 - 115 mg/dL [facility] Interpretation and review of laboratory results Abnormal [facility] Potassium [Moles/Vol] 4.5 mmol/L 3.5 - 5.1 mmol/L [facility] Comment on above: Plasma potassium chris ues may be up to 0.5 mmol/L lower than serum values. Sodium [Moles/Vol] 140 mmol/L 136 - 145 mmol/L [facility] Urea nitrogen [Mass/Vol] 16 mg/dL 9 - 23 mg/dL [facility] CBC W Auto Differential pane l (Bld)Ordered By: Daija Doran on 07-06-2024 Basophils (Bld) [#/Vol] 0 10*3/uL 0.0 - 0.2 10*3/uL [facility] Basophils/100 WBC (Bld) 0.5 % 0.0 - 2.0 % [facility] Eosinophils (Bld) [#/Vol] 0 10*3/uL 0.0 - 0.5 10*3/uL [facility] Eosinophils/100 WBC (Bld) 0.3 % 0.0 - 6.0 % [facility] Erythrocyte distribution width (RBC) [Ratio] 17.8 % High 11.5 - 15.0 % [facility] Hematocrit (Bld) [Volume fraction] 31.8 % Low 35.0 - 47.0 % [facility] Hemoglobin (Bld) [Mass/Vol] 9.7 g/dL Low 11.7 - 16.0 g/dL [facility] Immature granulocytes (Bld) [#/Vol] 0 10*3/uL NINF - 0.1 10*3/uL [facility] Immature granulocytes/100 WBC (Bld) 0.3 % 0.0 - 2.0 % [facility] Interpretation and review of laboratory results Abnormal [facility] Lymphocytes (Bld) [#/Vol] 1.2 10*3/uL 1.0 - 4.3 10*3/uL [facility] Lymphocytes/100 WBC (Bld) 18.9 % 15.0 - 45.0 % [facility] MCH (RBC) [Entitic mass] 26.4 pg 26.0 - 34.0 pg [facility] MCHC (RBC) [Mass/Vol] 30.5 % 30.5 - 36.0 % [facility] MCV (RBC) [Entitic vol] 86.4 fL 77.0 - 99.0 fL [facility] Monocytes (Bld) [#/Vol] 0.5 10*3/uL 0.0 - 0.9 10*3/uL [facility] Monocytes/100 WBC (Bld) 8.2 % 5.0 - 13.0 % [facility] Neutrophils (Bld) [#/Vol] 4.4 10*3/uL 1.8 - 7.5 10*3/uL [facility] Neutrophils/100 WBC (Bld) 71.8 % 38.0 - 82.0 % [facility] Nucleated RBC/100 WBC (Bld) [Ratio] 0 % [facility] Platelet mean volume (Bld) [Entitic vol] 10.9 fL 9.0 - 12.7 fL [facility] Platelets (Bld) [#/Vol] 278 10*3/uL 140 - 440 10*3/uL [facility] RBC (Bld) [#/Vol] 3.68 10*6/uL Low 3.80 - 5.2 0 10*6/uL [facility] WBC (Bld) [#/Vol] 6.1 10*3/uL 3.6 - 10.7 10*3/uL [facility] CBC WITH AUTO DIFFERENTIALon 07-06-2024 Basophils (Bld) [#/Vol] 0.0 10*3/uL Normal 0.0-0.2 [facility] Comment on above: Performed By: #### L [id number] ####Improvement Auditor: VELMA VALADEZ ([phone])[facility])[address] [place] [address] Basophils/100 WBC (Bld) 0.5 % Normal 0.0-2.0 [facility] Comment on above: Performed By: #### L [id number] ####Improvement Auditor: VELMA VALADEZ ([id number])[facility])[address] [place] [address] Eosinophils (Bld) [#/Vol] 0.0 10*3/uL Normal 0.0-0.5 [facility] Comment on above: Performed By: #### L [id number] ####Improvement Auditor: VELMA VALADEZ ([id number])[facility])[address] [place] [address] Eosinophils/100 WBC (Bld) 0.3 % Normal 0.0-6.0 [facility] Comment on above: Performed By: #### L [id number] ####Improvement Auditor: VELMA VALADEZ ([id number])[address] Erythrocyte distribution width (RBC) [Ratio] 17.8 % High 11.5-15.0 [facility] Comment on above: Performed By: #### L [id number] ####Improvement Auditor: VELMA VALADEZ ([id number])[facility])[address] [place] [address] Hematocrit (Bld) [Volume fraction] 31.8 % Low 35.0-47.0 [facility] Comment on above: Performed By: #### L [id number] ####Improvement Auditor: VELMA VALADEZ ([id number])[facility])[address] [place] [address] Hemoglobin (Bld) [Mass/Vol] 9.7 g/dL Low 11.7-16.0 [facility] Comment on above: Performed By: #### L [id number] ####Improvement Auditor: VELMA VALADEZ ([id number])[facility])[address] [place] [address] IMMATURE GRANS % 0.3 % Normal 0.0-2.0 [facility] Comment on above: Performed By: #### L [id number] ####Improvement Auditor: VELMA VALADEZ ([id number])[facility])[address] [place] [address] IMMATURE GRANS ABSOLUTE 0.0 10*3/uL Normal <0.1 [facility] Comment on above: Performed By: #### L [id number] ####Improvement Auditor: VELMA VALADEZ ([id number])[facility])[address] [place] [address] Lymphocytes (Bld) [#/Vol] 1.2 10*3/uL Normal 1.0-4.3 [facility] Comment on above: Performed By: #### L [id number] ####Improvement Auditor: VELMA VALADEZ ([id number])[facility])[address] [place] [address] Lymphocytes/100 WBC (Bld) 18.9 % Normal 15.0-45.0 [facility] Comment on above: Performed By: #### L [id number] ####Improvement Auditor: VELMA VALADEZ ([id number])[facility])[address] [place] [address] MCH (RBC) [Entitic mass] 26.4 pg Normal 26.0-34.0 [facility] Comment on above: Performed By: #### L [id number] ####Improvement Auditor: VELMA VALADEZ ([id number])[facility])[address] [place] [address] MCHC 30.5 % Normal 30.5-36.0 [facility] Comment on above: Performed By: #### L [id number] ####Improvement Auditor: VELMA VALADEZ ([id number])[facility])[address] [place] [address] MCV (RBC) [Entitic vol] 86.4 fL Normal 77.0-99.0 [facility] Comment on above: Performed By: #### L [id number] ####Improvement Auditor: VELMA VALADEZ ([id number])[facility])[address] [place] [address] Monocytes (Bld) [#/Vol] 0.5 10*3/uL Normal 0.0-0.9 [facility] Comment on above: Performed By: #### L [id number] ####Improvement Auditor: VELMA VALADEZ ([id number])[facility])[address] [place] [address] Monocytes/100 WBC (Bld) 8.2 % Normal 5.0-13.0 [facility] Comment on above: Performed By: #### L [id number] ####Improvement Auditor: VELMA VALADEZ ([id number])[facility])[address] [place] [address] NEUTROPHILS ABSOLUTE 4.4 10*3/uL Normal 1.8-7.5 [facility] Comment on above: Performed By: #### L [id number] ####Improvement Auditor: VELMA VALADEZ ([id number])[facility])[address] [place] [address] Neutrophils/100 WBC (Bld) 71.8 % Normal 38.0-82.0 [facility] Comment on above: Performed By: #### L [id number] ####Improvement Auditor: VELMA VALADEZ ([id number])[facility])[address] [place] [address] [place] NRBC 0.0 /100 WBCs Normal 0.0-2.0 [facility] Comment on above: Performed By: #### L [id number] ####Improvement Auditor: VELMA VALADEZ ([id number])[facility])[address] [place] [address] Platelet mean volume (Bld) [Entitic vol] 10.9 fL Normal 9.0-12.7 [facility] Comment on above: Performed By: #### L [id number] ####Improvement Auditor: VELMA VALADEZ ([id number])[facility])[address] [place] [address] Platelets (Bld) [#/Vol] 278 10*3/uL Normal 140-440 [facility] Comment on above: Performed By: #### L [id number] ####Improvement Auditor: VELMA VALADEZ ([phone])[facility])[address] [place] [address] RBC (Bld) [#/Vol] 3.68 10*6/uL Low 3.80-5.20 [facility] Comment on above: Performed By: #### L [id number] ####Improvement Auditor: VELMA VALADEZ ([phone])[facility] ([facility])[address] [place] [address] WBC (Bld) [#/Vol] 6.1 10*3/uL Normal 3.6-10.7 [facility] Comment on above: Performed By: #### L [id number] ####Improvement Auditor: VELMA VALADEZ ([phone])[facility] ([facility])[address] [place] [address] Lauren 07-06-2024 CNPN Telephone (OPHTMN) MEL GUADARRAMA ([id number]) 1940 F T Date Time Provider Department 07/06/24 RYAN ELIZONDO OPHJIMN During your visit today, we recorded the following information about you: Ryan Elizondo MD 07/06/2024 2:42 PM Signed TELEPHONE ENCOUNTER 07/06/2024 Patient with recent stroke and admitted to [facility] where she was noted to have elevated IOP with retinal detachment of the right eye by consult catering manager. 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 Was contacted about potential transfer to [facility] to be evaluated by retinal specialist. Discussed that given she is currently admitted on neurology floor the decision to transfer to [facility] should be discussed with medicine vs neurology and then ophthalmology service will be able to evaluate her potential retinal detachment and consider intervention as needed. PLAN: - discuss transferring to [facility] with medicine or neurology service - page ophthalmology when arrived - PLAN: VA, IOP, DFE, OCT mac OU, and optos OU Ryan Elizondo MD Ophthalmology Resident Allergies As of Date: 07/06/2024 Noted Allergy Reaction PERCOCET (OXYCODONE-ACETAMINOPHE N)06/16/2022 9 - Itching Date Reviewed: 06/13/2024 Reviewed by: Brianne Douglass, RN - Fully Assessed Prescriptions as of 07/06/2024 - enoxaparin (LOVENOX) 80 mg/0.8 mL Inject 0.7 mL subcutaneously every 12 hours. - atorvastatin (LIPITOR) 80 mg tablet Take 1 tablet by mouth daily at bedtime. - lisinopril (ZESTRIL) 10 mg tablet Take 1 tablet by mouth once daily. - metoprolol tartrate, short acting, (LOPRESSOR) 25 mg tablet Take 0.5 tablets by mouth every 12 hours. - lidocaine (SALONPAS) 4 % patch Apply 1 Patch as directed once daily. APPLY TO: SHOULDER Left - Remove patch after 12 hours. - albuterol HFA (PROVENTIL HFA, VENTOLIN HFA) 90 mcg/actuation inhaler Inhale 2 Puffs as instructed every 6 hours as needed for wheezing/shortness of breath. - aoanflnoqas-jjpklsxvl-g ilanter (TRELEGY ELLIPTA) 100-62.5-25 mcg inhalation powder Inhale 1 Puff as instructed once daily. - acetaminophen (TYLENOL) 325 mg tablet Take 2 tablets by mouth every 6 hours as needed for pain. - pantoprazole (PROTONIX) 40 mg tablet Take 1 tablet by mouth twice daily before meals (0600/1600). - ascorbic acid, vitamin C, (VITAMIN C) 500 mg tablet Take 1 tablet by mouth three times daily. Meds Comments as of 04/10/2007: . 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 Glasses that match the description are in lost and found. Will attempt to see if glasses are a match. Normal [facility] Progress Noteon 07-06-2024 Progress Note Normal [facility] Progress Note Normal [facility] CBC (HEMOGRAM)on 07-05-2024 Erythrocyte distribution width (RBC) [Ratio] 17.2 % High 11.5-15.0 [facility] Comment on above: Performed By: #### L [id number] ####Improvement Auditor: VELMA VALADEZ ([phone])[facility])[address] [place] [address] Hematocrit (Bld) [Volume fraction] 32.8 % Low 35.0-47.0 [facility] Comment on above: Performed By: #### L [id number] ####Improvement Auditor: VELMA VALADEZ ([phone])[facility])[address] [place] [address] Hemoglobin (Bld) [Mass/Vol] 10.6 g/dL Low 11.7-16.0 [facility] Comment on above: Performed By: #### L [id number] ####Improvement Auditor: VELMA VALADEZ ([phone])[facility])[address] [place] [address] MCH (RBC) [Entitic mass] 26.4 pg Normal 26.0-34.0 [facility] Comment on above: Performed By: #### L [id number] ####Improvement Auditor: VELMA VALADEZ ([phone])[facility])[address] [place] [address] MCHC 32.3 % Normal 30.5-36.0 [facility] Comment on above: Performed By: #### L [id number] ####Improvement Auditor: VELMA VALADEZ ([phone])[facility])[address] [place] [address] MCV (RBC) [Entitic vol] 81.8 fL Normal 77.0-99.0 [facility] Comment on above: Performed By: #### L [id number] ####Improvement Auditor: VELMA VALADEZ ([phone])[facility])[address] [place] [address] Platelet mean volume (Bld) [Entitic vol] 9.6 fL Normal 9.0-12.7 [facility] Comment on above: Performed By: #### L [id number] ####Improvement Auditor: VELMA VALADEZ ([phone])[facility])[address] [place] [address] Platelets (Bld) [#/Vol] 349 10*3/uL Normal 140-440 [facility] Comment on above: Performed By: #### L [id number] ####Improvement Auditor: VELMA VALADEZ ([phone])[facility])[address] [place] [address] RBC (Bld) [#/Vol] 4.01 10*6/uL Normal 3.80-5.20 [facility] Comment on above: Performed By: #### L [id number] ####Improvement Auditor: VELMA VALADEZ ([phone])[facility])[address] [place] [address] WBC (Bld) [#/Vol] 5.5 10*3/uL Normal 3.6-10.7 [facility] Comment on above: Performed By: #### L [id number] ####Improvement Auditor: VELMA VALADEZ ([phone])[address] CBC panel Auto (Bld)on 07-05 Erythrocyte distribution width (RBC) [Ratio] 17.2 % High 11.5 - 15.0 % [facility] Hematocrit (Bld) [Volume fraction] 32.8 % Low 35.0 - 47.0 % [facility] Hemoglobin (Bld) [Mass/Vol] 10.6 g/dL Low 11.7 - 16.0 g/dL [facility] Interpretation and review of laboratory results Abnormal [facility] MCH (RBC) [Entitic mass] 26.4 pg 26.0 - 34.0 pg [facility] MCHC (RBC) [Mass/Vol] 32.3 % 30.5 - 36.0 % [facility] MCV (RBC) [Entitic vol] 81.8 fL 77.0 - 99.0 fL [facility] Platelet mean volume (Bld) [Entitic vol] 9.6 fL 9.0 - 12.7 fL [facility] Platelets (Bld) [#/Vol] 349 10*3/uL 140 - 440 10*3/uL [facility] RBC (Bld) [#/Vol] 4.01 10*6/uL 3.80 - 5.2 0 10*6/uL [facility] WBC (Bld) [#/Vol] 5.5 10*3/uL 3.6 - 10.7 10*3/uL [facility] COMPREHENSIVE METABOLIC PANE Gilberto 07-05-2024 Albumin [Mass/Vol] 3.6 g/dL Normal 3.4-4.8 [facility] Comment on above: Performed By: #### L [id number], LAB17 ####Improvement Auditor: VELMA VALADEZ ([id number])[facility])[address] [place] [address] ALP [Catalytic activity/Vol] 94 U/L Normal 40-150 [facility] Comment on above: Performed By: #### L [id number], LAB17 ####Improvement Auditor: VELMA VALADEZ ([id number])[facility])[address] [place] [address] ALT [Catalytic activity/Vol] 23 U/L Normal <30 [facility] Comment on above: Performed By: #### L [id number], LAB17 ####Improvement Auditor: VELMA VALADEZ ([id number])[facility])[address] [place] [address] Anion gap [Moles/Vol] 10 mmol/L Normal 3-13 [facility] Comment on above: Performed By: #### L [id number], LAB17 ####Improvement Auditor: VELMA VALADEZ ([id number])[facility])[address] [place] [address] AST [Catalytic activity/Vol] 26 U/L Normal <34 [facility] Comment on above: Performed By: #### L [id number], LAB17 ####Improvement Auditor: VELMA VALADEZ ([phone])[facility])[address] Bilirubin [Mass/Vol] 0.7 mg/dL Normal <1.2 [facility] Comment on above: Performed By: #### L [id number], LAB17 ####Improvement Auditor: VELMA VALADEZ ([id number])[facility])[address] [place] [address] Calcium [Mass/Vol] 9.2 mg/dL Normal 8.8-10.0 [facility] Comment on above: Performed By: #### L [id number], LAB17 ####Improvement Auditor: VELMA VALADEZ ([phone])[facility])[address] [place] [address] Chloride [Moles/Vol] 107 mmol/L Normal 98-107 [facility] Comment on above: Performed By: #### [place] [id number], LAB17 ####Improvement Auditor: VELMA VALADEZ ([id number])[facility])[address] [place] [address] CO2 [Moles/Vol] 22 mmol/L Low 23-31 [facility] Comment on above: Performed By: #### L [id number], LAB17 ####Improvement Auditor: VELMA VALADEZ ([id number])[facility])[address] [place] [address] Creatinine [Mass/Vol] 0.82 mg/dL Normal 0.57-1.11 [facility] Comment on above: Performed By: #### L [id number], LAB17 ####Improvement Auditor: VELMA VALADEZ ([id number])[facility])[address] [place] [address] GLOMERULAR FILTRATION RATE ML/MIN/1.73 SQ M.PREDICTED 70.6 mL/min/1.73m*2 Normal >60.0 [facility] Comment on above: Result Comment: Calc ulation based on the Chronic Kidney Disease Epidemiology Collaboration (CKD-EPI) equation refit without adjustment for race Performed By: #### L [id number], LAB17 ####Improvement Auditor: VELMA VALADEZ ([phone])[facility])[address] [place] [address] Glucose [Mass/Vol] 118 mg/dL High 82-115 [facility] Comment on above: Performed By: #### L [id number], LAB17 ####Improvement Auditor: VELMA VALADEZ ([id number])[facility])[address] [place] [address] Potassium [Moles/Vol] 4.3 mmol/L Normal 3.5-5.1 [facility] Comment on above: Result Comment: [facility] potassium values may be up to 0.5 mmol/L lower than serum values. Performed By: #### L [id number], LAB17 ####Improvement Auditor: VELMA VALADEZ ([phone])[facility])[address] [place] [address] Protein [Mass/Vol] 7.0 g/dL Normal 6.4-8.3 [facility] Comment on above: Performed By: #### L [id number], LAB17 ####Improvement Auditor: VELMA VALADEZ ([phone])[facility])[address] [place] [address] Sodium [Moles/Vol] 139 mmol/L Normal 136-145 [facility] Comment on above: Performed By: #### L [id number], LAB17 ####Improvement Auditor: VELMA VALADEZ ([phone])[facility])[address] [place] [address] Urea nitrogen [Mass/Vol] 13 mg/dL Normal 9-23 [facility] Comment on above: Performed By: #### L [id number], LAB17 ####Improvement Auditor: VELMA VALADEZ ([id number])[facility])[address] [place] [address] CT HEAD NECK ANGIO W AND WO IV CONTRASTon 07-05-2024 CT HEAD NECK ANGIO W AND WO IV CONTRAST Normal [facility] CT HEAD WO IV CONTRASTon CT HEAD WO IV CONTRAST Normal [facility] CT Head WO contraston 2023 Patient Name: MEL CARVER RD : 1940 [facility]#: [id number] Exam Date/Time: 07/05/2024 04:36 Procedure: CT HEAD WO IV CONTRAST Ordering Provider: NUNES VISHNU Reason For Exam: Neuro deficit, acute, stroke suspected EXAM TYPE: CT HEAD WO IV CONTRAST, CT HEAD NECK ANGIO W AND WO IV CONTRAST, CT PERFUSION EXAM DATE AND TIME: 07/05/2024 4:36 AM EST INDICATION: Vision abnormality, headache COMPARISON: None available. TECHNIQUE: Noncontrast CT head was obtained. Thin section CT angiography from the aortic arch to the skull base was performed for CT angiography neck and from the skull base to vertex for CT angiography head, following the administration of intravenous contrast. MIP and volume rendered reformats were obtained using a separate workstation. Review of the axial source data and the reconstructed images was performed. A CT perfusion analysis of the intracranial vasculature was performed utilizing standard protocol. Perfusion data was analyzed at separate intracranial axial slice locations using submillimeter partitions during dynamic infusion of intravenous contrast. Perfusion parametric maps were generated from the dynamic data. Arterial and venous input functions were calculated from available arterial and venous reference points. A total of 75 mL Isovue 370 IV contrast was administered for intravenous contrast. FINDINGS: Noncontrast CT head: Ellipsoid mixed attenuation densities in the right ocular globe, new from 04/03/2024. Chronically small hyperdense left ocular globe with calcification and probable postsurgical changes. Chronic left cerebellar infarct. There is no CT evidence of an acute intracranial hemorrhage, territorial infarction, midline shift, mass effect, or extra-axial collection. The george-white differentiation remains preserved and the basal cisterns are patent. Ventricles are appropriate in size for the patient's age and level of parenchymal volume. The osseous structures are unremarkable without evidence of a fracture. The paranasal sinuses and mastoid air cells remain well aerated. ASPECTS SCORE: 10 CTA HEAD: ANTERIOR CIRCULATION Right Cavernous Carotid Artery: Patent. No focal stenosis, segmental occlusion or aneurysm. Right Middle Cerebral Artery: Patent. No focal stenosis, segmental occlusion or aneurysm. Right Anterior Cerebral Artery: Patent. No focal stenosis, segmental occlusion or aneurysm. Left Cavernous Carotid Artery: Patent. No focal stenosis, segmental occlusion or aneurysm. Left Middle Cerebral Artery: Patent. No focal stenosis, segmental occlusion or aneurysm. Left Anterior Cerebral Artery: Patent. No focal stenosis, segmental occlusion or aneurysm. Anterior Communicating Artery: Patent Posterior Communicating: Patent bilaterally POSTERIOR CIRCULATION Right Vertebral Artery: Patent. No focal stenosis, segmental occlusion, dissection, or aneurysm. Left Vertebral Artery: Patent. No focal stenosis, segmental occlusion, dissection, or aneurysm. Basilar Artery: Patent. No focal stenosis, segmental occlusion, or aneurysm. 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 No focal stenosis, segmental occlusion, dissection, or aneurysm. Left Posterior Cerebral Artery: Diminutive or absent P1 segment, likely congenital with predominant supply from posterior communicating artery. No focal stenosis, segmental occlusion, dissection, or aneurysm. Superior Cerebellar Arteries: Patent. AICAs: Patent. PICAs: Patent. CTA NECK: AORTIC ARCH: Three-vessel. BRACHIOCEPHALIC ORIGIN AND RIGHT COMMON CAROTID ORIGIN: Patent without significant stenosis. RIGHT COMMON CAROTID ARTERY: Patent with no hemodynamically significant stenosis. RIGHT CAROTID BIFURCATION/PROX INT CAROTID ARTERY: Mild amount of atherosclerotic plaque. Less than 10 percent stenosis by NASCET criteria. CERVICAL SEGMENT RIGHT CAROTID ARTERY: Patent with no hemodynamically significant stenosis. LEFT COMMON CAROTID: Patent with no hemodynamically significant stenosis. LEFT CAROTID BIFURCATION/PROX LEFT INT CAROTID: There is a mild amount of plaque within the carotid bulb. Less than 10 percent stenosis by NASCET criteria. CERVICAL SEGMENT LEFT INTERNAL CAROTID: Patent with no hemodynamically significant stenosis. RIGHT VERTEBRAL ARTERY:Patent with no hemodynamically significant stenosis or dissection. LEFT VERTEBRAL ARTERY: Moderate narrowing at the origin of the left vertebral artery. Otherwise patent with no hemodynamically significant stenosis or dissection. ACCESSORY STRUCTURES: To centimeter exophytic nodular extension of the right lobe of the thyroid into the upper mediastinum.. There is no cervical lymphadenopathy. Pulmonary emphysema with no acute consolidative process or suspicious nodules. Multilevel degenerative changes of the cervica (more content not included)... [facility], Cirilo Khalil MD - 07/05/2024 [facility]: [facility] POP : 1940 [id number] Exam Date/Time: 07/05/2024 04:36 Procedure: CT HEAD WO IV CONTRAST Ordering Provider: NUNES VISHNU Reason For Exam: Neuro deficit, acute, stroke suspected EXAM TYPE: CT HEAD WO IV CONTRAST, CT HEAD NECK ANGIO W AND WO IV CONTRAST, CT PERFUSION EXAM DATE AND TIME: 07/05/2024 4:36 AM EST INDICATION: Vision abnormality, headache COMPARISON: None available. TECHNIQUE: Noncontrast CT head was obtained. Thin section CT angiography from the aortic arch to the skull base was performed for CT angiography neck and from the skull base to vertex for CT angiography head, following the administration of intravenous contrast. MIP and volume rendered reformats were obtained using a separate workstation. Review of the axial source data and the reconstructed images was performed. A CT perfusion analysis of the intracranial vasculature was performed utilizing standard protocol. Perfusion data was analyzed at separate intracranial axial slice locations using submillimeter partitions during dynamic infusion of intravenous contrast. Perfusion parametric maps were generated from the dynamic data. Arterial and venous input functions were calculated from available arterial and venous reference points. A total of 75 mL Isovue 370 IV contrast was administered for intravenous contrast. FINDINGS: Noncontrast CT head: Ellipsoid mixed attenuation densities in the right ocular globe, new from 04/03/2024. Chronically small hyperdense left ocular globe with calcification and probable postsurgical changes. Chronic left cerebellar infarct. There is no CT evidence of an acute intracranial hemorrhage, territorial infarction, midline shift, mass effect, or extra-axial collection. The george-white differentiation remains preserved and the basal cisterns are patent. Ventricles are appropriate in size for the patient's age and level of parenchymal volume. The osseous structures are unremarkable without evidence of a fracture. The paranasal sinuses and mastoid air cells remain well aerated. ASPECTS SCORE: 10 CTA HEAD: ANTERIOR CIRCULATION Right Cavernous Carotid Artery: Patent. No focal stenosis, segmental occlusion or aneurysm. Right Middle Cerebral Artery: Patent. No focal stenosis, segmental occlusion or aneurysm. Right Anterior Cerebral Artery: Patent. No focal stenosis, segmental occlusion or aneurysm. Left Cavernous Carotid Artery: Patent. No focal stenosis, segmental occlusion or aneurysm. Left Middle Cerebral Artery: Patent. No focal stenosis, segmental occlusion or aneurysm. Left Anterior Cerebral Artery: Patent. No focal stenosis, segmental occlusion or aneurysm. Anterior Communicating Artery: Patent Posterior Communicating: Patent bilaterally POSTERIOR CIRCULATION Right Vertebral Artery: Patent. No focal stenosis, segmental occlusion, dissection, or aneurysm. Left Vertebral Artery: Patent. No focal stenosis, segmental occlusion, dissection, or aneurysm. Basilar Artery: Patent. No focal stenosis, segmental occlusion, or aneurysm. 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 No focal stenosis, segmental occlusion, dissection, or aneurysm. Left Posterior Cerebral Artery: Diminutive or absent P1 segment, likely congenital with predominant supply from posterior communicating artery. No focal stenosis, segmental occlusion, dissection, or aneurysm. Superior Cerebellar Arteries: Patent. AICAs: Patent. PICAs: Patent. CTA NECK: AORTIC ARCH: Three-vessel. BRACHIOCEPHALIC ORIGIN AND RIGHT COMMON CAROTID ORIGIN: Patent without significant stenosis. RIGHT COMMON CAROTID ARTERY: Patent with no hemodynamically significant stenosis. RIGHT CAROTID BIFURCATION/PROX INT CAROTID ARTERY: Mild amount of atherosclerotic plaque. Less than 10 percent stenosis by NASCET criteria. CERVICAL SEGMENT RIGHT CAROTID ARTERY: Patent with no hemodynamically significant stenosis. LEFT COMMON CAROTID: Patent with no hemodynamically significant stenosis. LEFT CAROTID BIFURCATION/PROX LEFT INT CAROTID: There is a mild amount of plaque within the carotid bulb. Less than 10 percent stenosis by NASCET criteria. CERVICAL SEGMENT LEFT INTERNAL CAROTID: Patent with no hemodynamically significant stenosis. RIGHT VERTEBRAL ARTERY:Patent with no hemodynamically significant stenosis or dissection. LEFT VERTEBRAL ARTERY: Moderate narrowing at the origin of the left vertebral artery. Otherwise patent with no hemodynamically significant stenosis or dissection. ACCESSORY STRUCTURES: To centimeter exophytic nodular extension of the right lobe of the thyroid into the upper mediastinum.. There is no cervical lymphadenopathy. Pulmonary emphysema with no acute consolidative process (more content not included)... [facility] CT PERFUSIONon 07-05-2024 CT PERFUSION Normal [facility] CTA Head vessels and Neck ve ssels WO and W contrast Cheryl 07-05-2024 Patient Name: MEL CARVER RD : 1940 [facility]#: [id number] Exam Date/Time: 07/05/2024 04:36 Procedure: CT HEAD NECK ANGIO W AND WO IV CONTRAST Ordering Provider: NUNES VISHNU Reason For Exam: Neuro deficit, acute, stroke suspected EXAM TYPE: CT HEAD WO IV CONTRAST, CT HEAD NECK ANGIO W AND WO IV CONTRAST, CT PERFUSION EXAM DATE AND TIME: 07/05/2024 4:36 AM EST INDICATION: Vision abnormality, headache COMPARISON: None available. TECHNIQUE: Noncontrast CT head was obtained. Thin section CT angiography from the aortic arch to the skull base was performed for CT angiography neck and from the skull base to vertex for CT angiography head, following the administration of intravenous contrast. MIP and volume rendered reformats were obtained using a separate workstation. Review of the axial source data and the reconstructed images was performed. A CT perfusion analysis of the intracranial vasculature was performed utilizing standard protocol. Perfusion data was analyzed at separate intracranial axial slice locations using submillimeter partitions during dynamic infusion of intravenous contrast. Perfusion parametric maps were generated from the dynamic data. Arterial and venous input functions were calculated from available arterial and venous reference points. A total of 75 mL Isovue 370 IV contrast was administered for intravenous contrast. FINDINGS: Noncontrast CT head: Ellipsoid mixed attenuation densities in the right ocular globe, new from 04/03/2024. Chronically small hyperdense left ocular globe with calcification and probable postsurgical changes. Chronic left cerebellar infarct. There is no CT evidence of an acute intracranial hemorrhage, territorial infarction, midline shift, mass effect, or extra-axial collection. The george-white differentiation remains preserved and the basal cisterns are patent. Ventricles are appropriate in size for the patient's age and level of parenchymal volume. The osseous structures are unremarkable without evidence of a fracture. The paranasal sinuses and mastoid air cells remain well aerated. ASPECTS SCORE: 10 CTA HEAD: ANTERIOR CIRCULATION Right Cavernous Carotid Artery: Patent. No focal stenosis, segmental occlusion or aneurysm. Right Middle Cerebral Artery: Patent. No focal stenosis, segmental occlusion or aneurysm. Right Anterior Cerebral Artery: Patent. No focal stenosis, segmental occlusion or aneurysm. Left Cavernous Carotid Artery: Patent. No focal stenosis, segmental occlusion or aneurysm. Left Middle Cerebral Artery: Patent. No focal stenosis, segmental occlusion or aneurysm. Left Anterior Cerebral Artery: Patent. No focal stenosis, segmental occlusion or aneurysm. Anterior Communicating Artery: Patent Posterior Communicating: Patent bilaterally POSTERIOR CIRCULATION Right Vertebral Artery: Patent. No focal stenosis, segmental occlusion, dissection, or aneurysm. Left Vertebral Artery: Patent. No focal stenosis, segmental occlusion, dissection, or aneurysm. Basilar Artery: Patent. No focal stenosis, segmental occlusion, or aneurysm. 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 No focal stenosis, segmental occlusion, dissection, or aneurysm. Left Posterior Cerebral Artery: Diminutive or absent P1 segment, likely congenital with predominant supply from posterior communicating artery. No focal stenosis, segmental occlusion, dissection, or aneurysm. Superior Cerebellar Arteries: Patent. AICAs: Patent. PICAs: Patent. CTA NECK: AORTIC ARCH: Three-vessel. BRACHIOCEPHALIC ORIGIN AND RIGHT COMMON CAROTID ORIGIN: Patent without significant stenosis. RIGHT COMMON CAROTID ARTERY: Patent with no hemodynamically significant stenosis. RIGHT CAROTID BIFURCATION/PROX INT CAROTID ARTERY: Mild amount of atherosclerotic plaque. Less than 10 percent stenosis by NASCET criteria. CERVICAL SEGMENT RIGHT CAROTID ARTERY: Patent with no hemodynamically significant stenosis. LEFT COMMON CAROTID: Patent with no hemodynamically significant stenosis. LEFT CAROTID BIFURCATION/PROX LEFT INT CAROTID: There is a mild amount of plaque within the carotid bulb. Less than 10 percent stenosis by NASCET criteria. CERVICAL SEGMENT LEFT INTERNAL CAROTID: Patent with no hemodynamically significant stenosis. RIGHT VERTEBRAL ARTERY:Patent with no hemodynamically significant stenosis or dissection. LEFT VERTEBRAL ARTERY: Moderate narrowing at the origin of the left vertebral artery. Otherwise patent with no hemodynamically significant stenosis or dissection. ACCESSORY STRUCTURES: To centimeter exophytic nodular extension of the right lobe of the thyroid into the upper mediastinum.. There is no cervical lymphadenopathy. Pulmonary emphysema with no acute consolidative process or suspicious nodules. Multilevel degenerative chopra (more content not included)... [facility] Cory, Cirilo Khalil MD - 07/05/2024 Patient Name: MEL POP : 1940 [facility]#: [id number] Exam Date/Time: 07/05/2024 04:36 Procedure: CT HEAD NECK ANGIO W AND WO IV CONTRAST Ordering Provider: NUNES VISHNU Reason For Exam: Neuro deficit, acute, stroke suspected EXAM TYPE: CT HEAD WO IV CONTRAST, CT HEAD NECK ANGIO W AND WO IV CONTRAST, CT PERFUSION EXAM DATE AND TIME: 07/05/2024 4:36 AM EST INDICATION: Vision abnormality, headache COMPARISON: None available. TECHNIQUE: Noncontrast CT head was obtained. Thin section CT angiography from the aortic arch to the skull base was performed for CT angiography neck and from the skull base to vertex for CT angiography head, following the administration of intravenous contrast. MIP and volume rendered reformats were obtained using a separate workstation. Review of the axial source data and the reconstructed images was performed. A CT perfusion analysis of the intracranial vasculature was performed utilizing standard protocol. Perfusion data was analyzed at separate intracranial axial slice locations using submillimeter partitions during dynamic infusion of intravenous contrast. Perfusion parametric maps were generated from the dynamic data. Arterial and venous input functions were calculated from available arterial and venous reference points. A total of 75 mL Isovue 370 IV contrast was administered for intravenous contrast. FINDINGS: Noncontrast CT head: Ellipsoid mixed attenuation densities in the right ocular globe, new from 04/03/2024. Chronically small hyperdense left ocular globe with calcification and probable postsurgical changes. Chronic left cerebellar infarct. There is no CT evidence of an acute intracranial hemorrhage, territorial infarction, midline shift, mass effect, or extra-axial collection. The george-white differentiation remains preserved and the basal cisterns are patent. Ventricles are appropriate in size for the patient's age and level of parenchymal volume. The osseous structures are unremarkable without evidence of a fracture. The paranasal sinuses and mastoid air cells remain well aerated. ASPECTS SCORE: 10 CTA HEAD: ANTERIOR CIRCULATION Right Cavernous Carotid Artery: Patent. No focal stenosis, segmental occlusion or aneurysm. Right Middle Cerebral Artery: Patent. No focal stenosis, segmental occlusion or aneurysm. Right Anterior Cerebral Artery: Patent. No focal stenosis, segmental occlusion or aneurysm. Left Cavernous Carotid Artery: Patent. No focal stenosis, segmental occlusion or aneurysm. Left Middle Cerebral Artery: Patent. No focal stenosis, segmental occlusion or aneurysm. Left Anterior Cerebral Artery: Patent. No focal stenosis, segmental occlusion or aneurysm. Anterior Communicating Artery: Patent Posterior Communicating: Patent bilaterally POSTERIOR CIRCULATION Right Vertebral Artery: Patent. No focal stenosis, segmental occlusion, dissection, or aneurysm. Left Vertebral Artery: Patent. No focal stenosis, segmental occlusion, dissection, or aneurysm. Basilar Artery: Patent. No focal stenosis, segmental occlusion, or aneurysm. 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 No focal stenosis, segmental occlusion, dissection, or aneurysm. Left Posterior Cerebral Artery: Diminutive or absent P1 segment, likely congenital with predominant supply from posterior communicating artery. No focal stenosis, segmental occlusion, dissection, or aneurysm. Superior Cerebellar Arteries: Patent. AICAs: Patent. PICAs: Patent. CTA NECK: AORTIC ARCH: Three-vessel. BRACHIOCEPHALIC ORIGIN AND RIGHT COMMON CAROTID ORIGIN: Patent without significant stenosis. RIGHT COMMON CAROTID ARTERY: Patent with no hemodynamically significant stenosis. RIGHT CAROTID BIFURCATION/PROX INT CAROTID ARTERY: Mild amount of atherosclerotic plaque. Less than 10 percent stenosis by NASCET criteria. CERVICAL SEGMENT RIGHT CAROTID ARTERY: Patent with no hemodynamically significant stenosis. LEFT COMMON CAROTID: Patent with no hemodynamically significant stenosis. LEFT CAROTID BIFURCATION/PROX LEFT INT CAROTID: There is a mild amount of plaque within the carotid bulb. Less than 10 percent stenosis by NASCET criteria. CERVICAL SEGMENT LEFT INTERNAL CAROTID: Patent with no hemodynamically significant stenosis. RIGHT VERTEBRAL ARTERY:Patent with no hemodynamically significant stenosis or dissection. LEFT VERTEBRAL ARTERY: Moderate narrowing at the origin of the left vertebral artery. Otherwise patent with no hemodynamically significant stenosis or dissection. ACCESSORY STRUCTURES: To centimeter exophytic nodular extension of the right lobe of the thyroid into the upper mediastinum.. There is no cervical lymphadenopathy. Pulmonary emphysema with no acute conso (more content not included)... [facility] Comprehensive metabolic 1998 panelon 07-05-2024 Albumin [Mass/Vol] 3.6 g/dL 3.4 - 4.8 g/dL [facility] ALP [Catalytic activity/Vol] 94 U/L 40 - 150 U/L [facility] ALT [Catalytic activity/Vol] 23 U/L [facility] - 30 U/L [facility] Anion gap [Moles/Vol] 10 mmol/L 3 - 13 mmol/L [facility] AST [Catalytic activity/Vol] 26 U/L [facility] - 34 U/L [facility] Bilirubin [Mass/Vol] 0.7 mg/dL [facility] - 1.2 mg/dL [facility] Calcium [Mass/Vol] 9.2 mg/dL 8.8 - 10. 0 mg/dL [facility] Chloride [Moles/Vol] 107 mmol/L 98 - 10 7 mmol/L [facility] CO2 [Moles/Vol] 22 mmol/L Low 23 - 31 mmol/L [facility] Creatinine [Mass/Vol] 0.82 mg/dL 0.57 - 1.11 mg/dL [facility] GFR/1.73 sq M.predicted (S/P/Bld) [Vol rate/Area] 70.6 mL/min - PINF [facility] Comment on above: Calculation based on the Chronic Kidney Disease Epidemiology Collaboration (CKD-EPI) equation refit without adjustment for race Glucose [Mass/Vol] 118 mg/dL High 82 - 115 mg/dL [facility] Interpretation and review of laboratory results Abnormal [facility] Potassium [Moles/Vol] 4.3 mmol/L 3.5 - 5.1 mmol/L [facility] Comment on above: Plasma potassium chris ues may be up to 0.5 mmol/L lower than serum values. Protein [Mass/Vol] 7 g/dL 6.4 - 8.3 g/dL [facility] Sodium [Moles/Vol] 139 mmol/L 136 - 145 mmol/L [facility] Urea nitrogen [Mass/Vol] 13 mg/dL 9 - 23 mg/dL [facility] Consulton 07-05-2024 Consult Normal [facility] Consult Normal [facility] Consult Normal [facility] Consult Normal [facility] ECG 12-LEADon 07-05-2024 ECG 12-LEAD IMPRESSION: Atrial fibrillation Electronically Signed On 07-05-2024 12:39:21 EST by Jhonatan Hernandez [facility] ED Nursing Noteon 07-05-[address] Carlson at bedside. Normal [facility] ED Nursing Note Provider notified of patient request for pain meds. Normal [facility] ED Nursing Note Dr. Carlson at bedside [facility] ED Nursing Note Patient is returning back to room 32 at this time with Jose, Medic. Normal [facility] ED Nursing Note Pt emergently going to eye clinic. Pt being transported in wheelchair with trauma float RADHA Hinkle and Maritza FRAGA Pt being transported on zoll monitor and acls kit. Normal [facility] ED Nursing Note Ophthalmology at bedside [facility] ED Nursing Note Report to Maritza FRAGA [facility] ED Provider Noteon ED Provider Note Normal [facility] HEMOGLOBIN A1Con 07-05-2024 Glucose [Mass/Vol] 120 mg/dL Normal [facility] Comment on above: Result Comment: ORDE R COMMENTS:HbA1c values of 5.7-6.4 percent indicate an increased risk for developing diabetes mellitus. HbA1c values greater than or equal to 6.5 percent are diagnostic of diabetes mellitus. For diagnosis of diabetes in individuals without unequivocal hyperglycemia, results should be confirmed by repeat testing. Performed By: #### L [id number] ####Improvement Auditor: VELMA VALADEZ ([phone])[facility] ([facility])[address] [place] [address] HEMOGLOBIN A1C 5.8 %HbA1C High <5.7 [facility] Comment on above: Result Comment: Norm al less than 5.7%Prediabetes 5.7% to 6.4%Diabetes 6.5% or higher--HgbA1C levels may not be accurate in patients who have renal disease, received recent blood transfusions, are anemic, or who have dyshemoglobinemia. Performed By: #### L [id number] ####Improvement Auditor: VELMA VALADEZ ([phone])[facility] ([facility])[address] [place] [address] HIGH SENSITIVITY TROPONIN, S ERIAL BASELINEon 07-05-2024 TROPONIN HIGH SENSITIVITY BASELINE 14 ng/L Normal <=14 [facility] Comment on above: Performed By: #### L [id number] ####Improvement Auditor: VELMA VALADEZ ([phone])[facility])[address] [place] [address] HIGH SENSITIVITY TROPONIN, S ERIAL, SECOND TESTon 07-05-2024 TROPONIN HS DELTA, BASELINE TO SECOND -5 ng/L Normal <=2 [facility] Comment on above: Result Comment: This specimen was collected more than 20 minutes away from the 2 hour target. Use of this delta with the 2 hour troponin algorithm is not recommended, individualized clinical assessment is needed.A troponin delta greater than or equal to 15 ng/L is significant for acute cardiac injury.Values less than 15 but greater than 2 are an intermediate change requiring a 3rd serial troponin to be drawn.Values less than or equal to 2 indicate acute cardiac injury is not likely, see external algorithms for further clinical guidance. Performed By: #### L [id number], [id number] ####Improvement Auditor: VELMA VALADEZ ([phone])[facility] ([facility])[address] [place] [address] TROPONIN HS, SERIAL REFLEX, TEST TWO 9 ng/L Normal <=14 [facility] Comment on above: Performed By: #### L [id number], [id number] ####Improvement Auditor: VELMA VALADEZ ([phone])[facility] ([facility])[address] [place] [address] Laboratory - Chemistry and C hemistry - challengeon 07-05-2024 Average glucose Estimated from glycated hemoglobin (Bld) [Mass/Vol] 120 mg/dL [facility] Anion gap (Bld) [Moles/Vol] 8 mmol/L 3.00 - 13.00 [facility] Calcium.ionized (Bld) [Moles/Vol] 4.5 mg/dl 4.30 - 5.20 mg/dl [facility] Comment on above: Performed by [employer] CLIA ID:[id number] [place], [place] Device: [id number] Retail Beauty Specialist ID: [id number] Chloride [Moles/Vol] 108 mmol/L 98 - 11 4 mmol/L [facility] CO2 [Moles/Vol] 23 mmol/L 21 - 29 mmol/L [facility] Creatinine [Mass/Vol] 0.9 mg/dL 0.6 - 1.3 mg/dL [facility] GFR/1.73 sq M.predicted CKD-EPI (S/P/Bld) [Vol rate/Area] 63.2 [facility] Comment on above: KDIGO guidelines pro vide the following GFR categories: Stage GFR (ml/min/1.73 m2) Terms G1 >=90 Normal or high G2 60-89 Mildly decreased* G3a 45-59 Mildly to moderately decreased G3b 30-44 Moderately to severely decreased G4 15-29 Severely decreased G5 <15 Kidney failure *Relative to young adult level. In the absence of evidence of kidney damage, neither GFR category G1 nor G2 fulfill the criteria for CKD. The CKD-EPI equation is validated in individuals 18 years of age and older. Currently the best equation for estimating glomerular filtration rate (GFR) from serum creatinine in children is the Bedside Pena equation. It is less accurate in patients with extremes of muscle mass, restriction of dietary protein, ingestion of creatine, extra-renal metabolism of creatinine, or treatment with medications that affect renal tubular creatinine secretion. Glucose [Mass/Vol] 104 mg/dL High 70 - 100 mg/dL [facility] Potassium [Moles/Vol] 4.5 mmol/L 3.4 - 5.1 mmol/L [facility] Sodium [Moles/Vol] 139 mmol/L 133 - 145 mmol/L [facility] Urea (Bld) [Mass/Vol] 14 mg/dL 4 - 22 mg/dL [facility] Glucose [Mass/Vol] 104 mg/dL High 70 - 100 mg/dL [facility] Laboratory - Coagulationon 1 09-05-2023 aPTT Coag (PPP) [Time] 30.4 s 20.0 - 30.5 s [facility] INR Coag (PPP) [Relative time] 1 {INR} 0.9 - 1.1 [facility] Comment on above: Recommended Anticoag ulant Therapy: SEE BELOW ----- INR of 2.0 - 3.0 : - Prophylaxis of Venous Thrombosis (high-risk surgery) - Treatment of Venous Thrombosis - Treatment of Pulmonary Embolism (Includes tissue heart valves, Acute Myocardial Infarction to prevent systemic embolism, Valvular Heart Disease, and Atrial Fibrillation) ----- INR of 2.5 - 3.5 : - Mechanical Prosthetic Valves (high risk) - If oral anticoagulant therapy is used to prevent Myocardial Infarction PT Coag (Bld) [Time] 11.7 s 9.0 - 1 2.0 s [facility] Laboratory - Hematology and Cell countson 07-05-2024 HbA1c (Bld) [Mass fraction] 5.8 % High NINF [facility] Comment on above: Normal less than 5.7 % Prediabetes 5.7% to 6.4% Diabetes 6.5% or higher --HgbA1C levels may not be accurate in patients who have renal disease, received recent blood transfusions, are anemic, or who have dyshemoglobinemia. MR Brain WO contraston 07-05 1. Regions of old infarct in the cerebellar hemispheres and right middle cerebral artery territory 2. No acute intracranial abnormality. Report Dictated on Electronically Signed By: Ming Fry MD Electronically Signed Date/Time: 07/05/2024 12:13 PM [facility] [email or web address] Patient Name: MEL CARVER RD : 1940 [id number] Exam Date/Time: 07/05/2024 11:45 Procedure: MR BRAIN WO CONTRAST Ordering Provider: NUNES VISHNU Reason For Exam: Headache, new or worsening (Age >= 50y) MRI BRAIN: CLINICAL INDICATION: Headache and nausea with visual disturbance TECHNIQUE: Sagittal T1, coronal T2, transaxial T2, FLAIR, gradient echo and diffusion weighted sequences performed through the brain COMPARISON: CT from earlier today and from 04/03/2024 FINDINGS: Exam quality: Limited due to patient motion during the examination. Ventricular system and Extra-axial spaces: Normal in size and morphology for the patient's age. No extracerebral collection with mass effect. Cerebral and cerebellar parenchyma: Ill-defined T2 hyperintensity without restricted diffusion within the central right cerebellar hemisphere and inferior left cerebellar hemisphere, likely correspond old infarcts.. There is some similar region of signal abnormality within the right frontal and parietal lobe and subcortical regions, corresponding to old infarct as well. No restricted diffusion is noted to suggest an acute process Brainstem: Normal. Sella turcica and pituitary: Normal. Vascular system: Normal signal void is noted within the major intracranial vessels. Paranasal sinuses: Clear. Mastoid air cells: Normal. Orbits: A diminutive deformed left globe is noted. There is artifact within the right globe. [facility] Ming Fry MD - 07/05/2024 [facility] Name: [facility]EL POP : 1940 [id number] Exam Date/Time: 07/05/2024 11:45 Procedure: MR BRAIN WO CONTRAST Ordering Provider: NUNES VISHNU Reason For Exam: Headache, new or worsening (Age >= 50y) MRI BRAIN: CLINICAL INDICATION: Headache and nausea with visual disturbance TECHNIQUE: Sagittal T1, coronal T2, transaxial T2, FLAIR, gradient echo and diffusion weighted sequences performed through the brain COMPARISON: CT from earlier today and from 04/03/2024 FINDINGS: Exam quality: Limited due to patient motion during the examination. Ventricular system and Extra-axial spaces: Normal in size and morphology for the patient's age. No extracerebral collection with mass effect. Cerebral and cerebellar parenchyma: Ill-defined T2 hyperintensity without restricted diffusion within the central right cerebellar hemisphere and inferior left cerebellar hemisphere, likely correspond old infarcts.. There is some similar region of signal abnormality within the right frontal and parietal lobe and subcortical regions, corresponding to old infarct as well. No restricted diffusion is noted to suggest an acute process Brainstem: Normal. Sella turcica and pituitary: Normal. Vascular system: Normal signal void is noted within the major intracranial vessels. Paranasal sinuses: Clear. Mastoid air cells: Normal. Orbits: A diminutive deformed left globe is noted. There is artifact within the right globe. IMPRESSION: 1. Regions of old infarct in the cerebellar hemispheres and right middle cerebral artery territory 2. No acute intracranial abnormality. Report Dictated on Electronically Signed By: Ming Fry MD Electronically Signed Date/Time: 07/05/2024 12:13 PM EST [facility] Radiology Study observation (narrative) [facility] MR Brain WO contrastOrdered By: Ming Fry on 07-05-2024 [facility] Work Phone: No Panel Informationon 07-05 Heart Rate 59 bpm [facility] P [place] 0 degrees [facility] ND Interval 0 ms [facility] QRS [place] 37 degrees [facility] QRSD Interval 98 ms [facility] QT Interval 423 ms [facility] QTC Interval 418 ms [facility] T Wave [place] 29 degrees [facility] Atrial fibrillation Electronically Signed On 07-05-2024 12:39:21 EST by Jhonatan Hernandez CV Jhonatan Abdi MD - 07/05/2024 IMPRESSION: Atrial fibrillation Electronically Signed On 07-05-2024 12:39:21 EST by Jhonatan Hernandez [facility] Interpretation and review of laboratory results Abnormal [facility] HbA1c values of 5.7- 6.4 percent indicate an increased risk for developing diabetes mellitus. HbA1c values greater than or equal to 6.5 percent are diagnostic of diabetes mellitus. For diagnosis of diabetes in individuals without unequivocal hyperglycemia, results should be confirmed by repeat testing. [facility] Troponin HS Delta, Baseline to Second -5 ng/L NINF - 2 ng/L [facility] Comment on above: This specimen was co llected more than 20 minutes away from the 2 hour target. Use of this delta with the 2 hour troponin algorithm is not recommended, individualized clinical assessment is needed. A troponin delta greater than or equal to 15 ng/L is significant for acute cardiac injury. Values less than 15 but greater than 2 are an intermediate change requiring a 3rd serial troponin to be drawn. Values less than or equal to 2 indicate acute cardiac injury is not likely, see external algorithms for further clinical guidance. Troponin HS, Serial Second 9 ng/L [facility]/L [facility] 1. No acute intracranial hemorrhage or territorial infarct. Chronic left cerebellar infarct. 2. 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 3. Moderate focal narrowing at the origin of left vertebral artery. 4. No regional areas of infarct or penumbra seen on CT perfusion imaging. 5. Ellipsoid mixed attenuation densities in the right ocular globe, new from 04/03/2024. These may be areas of intraocular hemorrhage among other possibilities. CRITICAL TEST RESULT COMMUNICATION: Critical findings discussed with Dr. Shabazz at 07/05/2024 4:46 AM EST. Report Dictated on Electronically Signed By: Cirilo Ray DR Electronically Signed Date/Time: 07/05/2024 5:03 AM EST [facility] Patient Name: MEL CARVER RD : 1940 [id number] Exam Date/Time: 07/05/2024 04:36 Procedure: CT PERFUSION Ordering Provider: NUNES VISHNU Reason For Exam: Neuro deficit, acute, stroke suspected EXAM TYPE: CT HEAD WO IV CONTRAST, CT HEAD NECK ANGIO W AND WO IV CONTRAST, CT PERFUSION EXAM DATE AND TIME: 07/05/2024 4:36 AM EST INDICATION: Vision abnormality, headache COMPARISON: None available. TECHNIQUE: Noncontrast CT head was obtained. Thin section CT angiography from the aortic arch to the skull base was performed for CT angiography neck and from the skull base to vertex for CT angiography head, following the administration of intravenous contrast. MIP and volume rendered reformats were obtained using a separate workstation. Review of the axial source data and the reconstructed images was performed. A CT perfusion analysis of the intracranial vasculature was performed utilizing standard protocol. Perfusion data was analyzed at separate intracranial axial slice locations using submillimeter partitions during dynamic infusion of intravenous contrast. Perfusion parametric maps were generated from the dynamic data. Arterial and venous input functions were calculated from available arterial and venous reference points. A total of 75 mL Isovue 370 IV contrast was administered for intravenous contrast. FINDINGS: Noncontrast CT head: Ellipsoid mixed attenuation densities in the right ocular globe, new from 04/03/2024. Chronically small hyperdense left ocular globe with calcification and probable postsurgical changes. Chronic left cerebellar infarct. There is no CT evidence of an acute intracranial hemorrhage, territorial infarction, midline shift, mass effect, or extra-axial collection. The george-white differentiation remains preserved and the basal cisterns are patent. Ventricles are appropriate in size for the patient's age and level of parenchymal volume. The osseous structures are unremarkable without evidence of a fracture. The paranasal sinuses and mastoid air cells remain well aerated. ASPECTS SCORE: 10 CTA HEAD: ANTERIOR CIRCULATION Right Cavernous Carotid Artery: Patent. No focal stenosis, segmental occlusion or aneurysm. Right Middle Cerebral Artery: Patent. No focal stenosis, segmental occlusion or aneurysm. Right Anterior Cerebral Artery: Patent. No focal stenosis, segmental occlusion or aneurysm. Left Cavernous Carotid Artery: Patent. No focal stenosis, segmental occlusion or aneurysm. Left Middle Cerebral Artery: Patent. No focal stenosis, segmental occlusion or aneurysm. Left Anterior Cerebral Artery: Patent. No focal stenosis, segmental occlusion or aneurysm. Anterior Communicating Artery: Patent Posterior Communicating: Patent bilaterally POSTERIOR CIRCULATION Right Vertebral Artery: Patent. No focal stenosis, segmental occlusion, dissection, or aneurysm. Left Vertebral Artery: Patent. No focal stenosis, segmental occlusion, dissection, or aneurysm. Basilar Artery: Patent. No focal stenosis, segmental occlusion, or aneurysm. 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 No focal stenosis, segmental occlusion, dissection, or aneurysm. Left Posterior Cerebral Artery: Diminutive or absent P1 segment, likely congenital with predominant supply from posterior communicating artery. No focal stenosis, segmental occlusion, dissection, or aneurysm. Superior Cerebellar Arteries: Patent. AICAs: Patent. PICAs: Patent. CTA NECK: AORTIC ARCH: Three-vessel. BRACHIOCEPHALIC ORIGIN AND RIGHT COMMON CAROTID ORIGIN: Patent without significant stenosis. RIGHT COMMON CAROTID ARTERY: Patent with no hemodynamically significant stenosis. RIGHT CAROTID BIFURCATION/PROX INT CAROTID ARTERY: Mild amount of atherosclerotic plaque. Less than 10 percent stenosis by NASCET criteria. CERVICAL SEGMENT RIGHT CAROTID ARTERY: Patent with no hemodynamically significant stenosis. LEFT COMMON CAROTID: Patent with no hemodynamically significant stenosis. LEFT CAROTID BIFURCATION/PROX LEFT INT CAROTID: There is a mild amount of plaque within the carotid bulb. Less than 10 percent stenosis by NASCET criteria. CERVICAL SEGMENT LEFT INTERNAL CAROTID: Patent with no hemodynamically significant stenosis. RIGHT VERTEBRAL ARTERY:Patent with no hemodynamically significant stenosis or dissection. LEFT VERTEBRAL ARTERY: Moderate narrowing at the origin of the left vertebral artery. Otherwise patent with no hemodynamically significant stenosis or dissection. ACCESSORY STRUCTURES: To centimeter exophytic nodular extension of the right lobe of the thyroid into the upper mediastinum.. There is no cervical lymphadenopathy. Pulmonary emphysema with no acute consolidative process or suspicious nodules. Multilevel degenerative changes of the cervical spine. (more content not included)... [facility] Cory, Cirilo Khalil MD - 07/05/2024 Patient Name: MEL POP : 1940 [facility]ly [facility]#: [id number] Exam Date/Time: 07/05/2024 04:36 Procedure: CT PERFUSION Ordering Provider: NUNES VISHNU Reason For Exam: Neuro deficit, acute, stroke suspected EXAM TYPE: CT HEAD WO IV CONTRAST, CT HEAD NECK ANGIO W AND WO IV CONTRAST, CT PERFUSION EXAM DATE AND TIME: 07/05/2024 4:36 AM EST INDICATION: Vision abnormality, headache COMPARISON: None available. TECHNIQUE: Noncontrast CT head was obtained. Thin section CT angiography from the aortic arch to the skull base was performed for CT angiography neck and from the skull base to vertex for CT angiography head, following the administration of intravenous contrast. MIP and volume rendered reformats were obtained using a separate workstation. Review of the axial source data and the reconstructed images was performed. A CT perfusion analysis of the intracranial vasculature was performed utilizing standard protocol. Perfusion data was analyzed at separate intracranial axial slice locations using submillimeter partitions during dynamic infusion of intravenous contrast. Perfusion parametric maps were generated from the dynamic data. Arterial and venous input functions were calculated from available arterial and venous reference points. A total of 75 mL Isovue 370 IV contrast was administered for intravenous contrast. FINDINGS: Noncontrast CT head: Ellipsoid mixed attenuation densities in the right ocular globe, new from 04/03/2024. Chronically small hyperdense left ocular globe with calcification and probable postsurgical changes. Chronic left cerebellar infarct. There is no CT evidence of an acute intracranial hemorrhage, territorial infarction, midline shift, mass effect, or extra-axial collection. The george-white differentiation remains preserved and the basal cisterns are patent. Ventricles are appropriate in size for the patient's age and level of parenchymal volume. The osseous structures are unremarkable without evidence of a fracture. The paranasal sinuses and mastoid air cells remain well aerated. ASPECTS SCORE: 10 CTA HEAD: ANTERIOR CIRCULATION Right Cavernous Carotid Artery: Patent. No focal stenosis, segmental occlusion or aneurysm. Right Middle Cerebral Artery: Patent. No focal stenosis, segmental occlusion or aneurysm. Right Anterior Cerebral Artery: Patent. No focal stenosis, segmental occlusion or aneurysm. Left Cavernous Carotid Artery: Patent. No focal stenosis, segmental occlusion or aneurysm. Left Middle Cerebral Artery: Patent. No focal stenosis, segmental occlusion or aneurysm. Left Anterior Cerebral Artery: Patent. No focal stenosis, segmental occlusion or aneurysm. Anterior Communicating Artery: Patent Posterior Communicating: Patent bilaterally POSTERIOR CIRCULATION Right Vertebral Artery: Patent. No focal stenosis, segmental occlusion, dissection, or aneurysm. Left Vertebral Artery: Patent. No focal stenosis, segmental occlusion, dissection, or aneurysm. Basilar Artery: Patent. No focal stenosis, segmental occlusion, or aneurysm. 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 No focal stenosis, segmental occlusion, dissection, or aneurysm. Left Posterior Cerebral Artery: Diminutive or absent P1 segment, likely congenital with predominant supply from posterior communicating artery. No focal stenosis, segmental occlusion, dissection, or aneurysm. Superior Cerebellar Arteries: Patent. AICAs: Patent. PICAs: Patent. CTA NECK: AORTIC ARCH: Three-vessel. BRACHIOCEPHALIC ORIGIN AND RIGHT COMMON CAROTID ORIGIN: Patent without significant stenosis. RIGHT COMMON CAROTID ARTERY: Patent with no hemodynamically significant stenosis. RIGHT CAROTID BIFURCATION/PROX INT CAROTID ARTERY: Mild amount of atherosclerotic plaque. Less than 10 percent stenosis by NASCET criteria. CERVICAL SEGMENT RIGHT CAROTID ARTERY: Patent with no hemodynamically significant stenosis. LEFT COMMON CAROTID: Patent with no hemodynamically significant stenosis. LEFT CAROTID BIFURCATION/PROX LEFT INT CAROTID: There is a mild amount of plaque within the carotid bulb. Less than 10 percent stenosis by NASCET criteria. CERVICAL SEGMENT LEFT INTERNAL CAROTID: Patent with no hemodynamically significant stenosis. RIGHT VERTEBRAL ARTERY:Patent with no hemodynamically significant stenosis or dissection. LEFT VERTEBRAL ARTERY: Moderate narrowing at the origin of the left vertebral artery. Otherwise patent with no hemodynamically significant stenosis or dissection. ACCESSORY STRUCTURES: To centimeter exophytic nodular extension of the right lobe of the thyroid into the upper mediastinum.. There is no cervical lymphadenopathy. Pulmonary emphysema with no acute consolidative process or suspici (more content not included)... [facility] Interpretation and review of laboratory results Normal [facility] Troponin HS, Serial Baseline 14 ng/L NINF - 14 ng/L [facility] Interpretation and review of laboratory results Normal [facility] Interpretation and review of laboratory results Abnormal [facility] Performed by: [employer] [facility], [address] [place] [address] CLIA ID: [id number] [facility] Radiology Study observation (narrative) [facility] Interpretation and review of laboratory results Abnormal [facility] Performed by: [facility], [address] [place] [address] CLIA ID: [id number] [facility] No Panel InformationOrdered By: Cirilo Ray on 07-05-2024 [facility] Work Phone: PROTIME AND APTTon aPTT Coag (Bld) [Time] 30.4 s Normal 20.0-30.5 [facility] Comment on above: Performed By: #### L [id number] ####Improvement Auditor: VELMA VALADEZ ([phone])[facility] ([facility])[address] [place] [address] INR Coag (PPP) [Relative time] 1.0 {INR} Normal 0.9-1.1 [facility] Comment on above: Result Comment: Timothy mmended Anticoagulant Therapy: SEE BELOW----- INR of 2.0 - 3.0 : - Prophylaxis of Venous Thrombosis (high-risk surgery) - Treatment of Venous Thrombosis - Treatment of Pulmonary Embolism (Includes tissue heart valves, Acute Myocardial Infarction to prevent systemic embolism, Valvular Heart Disease, and Atrial Fibrillation)----- INR of 2.5 - 3.5 : - Mechanical Prosthetic Valves (high risk) - If oral anticoagulant therapy is used to prevent Myocardial Infarction Performed By: #### L [id number] ####Improvement Auditor: VELMA VALADEZ ([phone])[facility] [place] [address] PT Coag (PPP) [Time] 11.7 s Normal 9.0-12.0 [facility] Comment on above: Performed By: #### L [id number] ####Improvement Auditor: VELMA VALADEZ ([phone])[facility] ([facility])[address] [place] [address] Progress Noteon 07-05-2024 Progress Note Normal [facility] CBC panel Auto (Bld)on 07-02 Erythrocyte distribution width (RBC) [Ratio] 16.9 % High 11.5 - 15.0 % [facility] Hematocrit (Bld) [Volume fraction] 29.6 % Low 36.0 - 46.0 % [facility] Hemoglobin (Bld) [Mass/Vol] 9.3 g/dL Low 11.5 - 15.5 g/dL [facility] Interpretation and review of laboratory results Abnormal [facility] MCH (RBC) [Entitic mass] 26.7 pg 26.0 - 34.0 pg [facility] MCHC (RBC) [Mass/Vol] 31.4 g/dL 30.5 - 36.0 g/dL [facility] MCV (RBC) [Entitic vol] 85.1 fL 80.0 - 100.0 fL [facility] Nucleated RBC (Bld) [#/Vol] NINF [facility] Platelet mean volume (Bld) [Entitic vol] 10.2 fL 9.0 - 12.7 fL [facility] Platelets (Bld) [#/Vol] 324 10*3/uL [facility] RBC (Bld) [#/Vol] 3.48 10*6/uL Low 3.90 - 5.2 0 m/uL [facility] WBC (Bld) [#/Vol] 5.12 10*3/uL [facility] Erythrocyte distribution width (RBC) [Ratio] 16.9 % High 11.5-15.0 [facility] Comment on above: Order Comment: Speci men Type: BLOOD SPECIMENOrdering Facility: [facility] Address: [address] [place] [address] Performed By: #### 5 8410-2 ####[facility] LABORATORYCLIA [id number] [address] Hematocrit (Bld) [Volume fraction] 29.6 % Low 36.0-46.0 [facility] Comment on above: Order Comment: Speci men Type: BLOOD SPECIMENOrdering Facility: [facility] Address: [address] [place] [address] Performed By: #### 5 8410-2 ####[facility] LABORATORYCLIA [id number] [place] [address] [place] Hemoglobin (Bld) [Mass/Vol] 9.3 g/dL Low 11.5-15.5 [facility] Comment on above: Order Comment: Speci men Type: BLOOD SPECIMENOrdering Facility: [facility] Address: [address] [place] [address] Performed By: #### 5 8410-2 ####[facility] LABORATORYCLIA [id number] [place] [address] [place] MCH (RBC) [Entitic mass] 26.7 pg Normal 26.0-34.0 [facility] Comment on above: Order Comment: Speci men Type: BLOOD SPECIMENOrdering Facility: [facility] Address: [address] [place] [address] Performed By: #### 5 8410-2 ####[facility]OR[facility] LABORATORYCLIA [id number] [address] [place] MCHC (RBC) [Mass/Vol] 31.4 g/dL Normal 30.5-36.0 [facility] Comment on above: Order Comment: Speci men Type: BLOOD SPECIMENOrdering Facility: [facility] Address: [address] [place] [address] Performed By: #### 5 8410-2 ####[facility] LABORATORYCLIA [id number] [address] [place] MCV (RBC) [Entitic vol] 85.1 fL Normal 80.0-100.0 [facility] Comment on above: Order Comment: Speci men Type: BLOOD SPECIMENOrdering Facility: [facility] Address: [address] [place] [address] Performed By: #### 5 8410-2 ####MORGAN LABORATORYCLIA [id number] [place] [address] [place] Nucleated RBC (Bld) [#/Vol] 10*3/uL Normal <0.01 [facility] Comment on above: Order Comment: Speci men Type: BLOOD SPECIMENOrdering Facility: [facility] Address: [address] [place] [address] Performed By: #### 5 8410-2 ####MORGAN LABORATORYCLIA [id number] [place] [address] [place] Platelet mean volume (Bld) [Entitic vol] 10.2 fL Normal 9.0-12.7 [facility] Comment on above: Order Comment: Speci men Type: BLOOD SPECIMENOrdering Facility: [facility] Address: [address] [place] [address] Performed By: #### 5 8410-2 ####MORGAN LABORATORYCLIA [id number] [place] [address] [place] Platelets (Bld) [#/Vol] 324 10*3/uL Normal 150-400 [facility] Comment on above: Order Comment: Speci men Type: BLOOD SPECIMENOrdering Facility: [facility] Address: [address] [place] [address] Performed By: #### 5 8410-2 ####MORGAN LABORATORYCLIA [id number] [place] [id number] [place] RBC (Bld) [#/Vol] 3.48 10*6/uL Low 3.90-5.20 [facility] Comment on above: Order Comment: Speci men Type: BLOOD SPECIMENOrdering Facility: [facility] Address: [address] [place] [address] Performed By: #### 5 8410-2 ####MORGAN LABORATORYCLIA [id number] [place] [address] [facility] WBC (Bld) [#/Vol] 5.12 10*3/uL Normal 3.70-11.00 [facility] Comment on above: Order Comment: Speci men Type: BLOOD SPECIMENOrdering Facility: [facility] Address: [address] [place] [address] Performed By: #### 5 8410-2 ####[facility] LABORATORYCLIA [id number] [place] [id number] [facility] CBC panel Auto (Bld)on 06-28 Erythrocyte distribution width (RBC) [Ratio] 16.6 % High 11.5 - 15.0 % [facility] Hematocrit (Bld) [Volume fraction] 28.8 % Low 36.0 - 46.0 % [facility] Hemoglobin (Bld) [Mass/Vol] 9.0 g/dL Low 11.5 - 15.5 g/dL [facility] Interpretation and review of laboratory results Abnormal [facility] MCH (RBC) [Entitic mass] 26.8 pg 26.0 - 34.0 pg [facility] MCHC (RBC) [Mass/Vol] 31.3 g/dL 30.5 - 36.0 g/dL [facility] MCV (RBC) [Entitic vol] 85.7 fL 80.0 - 100.0 fL [facility] Nucleated RBC (Bld) [#/Vol] NINF [facility] Platelet mean volume (Bld) [Entitic vol] 10.5 fL 9.0 - 12.7 fL [facility] Platelets (Bld) [#/Vol] 316 10*3/uL [facility] RBC (Bld) [#/Vol] 3.36 10*6/uL Low 3.90 - 5.2 0 m/uL [facility] WBC (Bld) [#/Vol] 5.27 10*3/uL [facility] Erythrocyte distribution width (RBC) [Ratio] 16.6 % High 11.5-15.0 [facility] Comment on above: Order Comment: Speci men Type: BLOOD SPECIMEN Ordering Facility: [facility] Address: [address] [place] [address] Performed By: #### 2 276-4 #### [facility] CLIA [id number] [address] [place] [address] [place] Hematocrit (Bld) [Volume fraction] 28.8 % Low 36.0-46.0 [facility] Comment on above: Order Comment: Speci men Type: BLOOD SPECIMEN Ordering Facility: [facility] Address: [address] [place] [address] Performed By: #### 2 276-4 #### [facility] CLIA [id number] [address] [place] [address] [place] Hemoglobin (Bld) [Mass/Vol] 9.0 g/dL Low 11.5-15.5 [facility] Comment on above: Order Comment: Speci men Type: BLOOD SPECIMEN Ordering Facility: [facility] Address: [address] [place] [address] Performed By: #### 2 276-4 #### [facility] CLIA [id number] [address] [place] [address] [place] MCH (RBC) [Entitic mass] 26.8 pg Normal 26.0-34.0 [facility] Comment on above: Order Comment: Speci men Type: BLOOD SPECIMEN Ordering Facility: [facility] Address: [address] [place] [address] Performed By: #### 2 276-4 #### [facility] CLIA [id number] [address] [place] [address] [place] MCHC (RBC) [Mass/Vol] 31.3 g/dL Normal 30.5-36.0 [facility] Comment on above: Order Comment: Speci men Type: BLOOD SPECIMEN Ordering Facility: [facility] Address: [address] [place] [address] Performed By: #### 2 276-4 #### [facility] CLIA [id number] [address] [place] [address] [place] MCV (RBC) [Entitic vol] 85.7 fL Normal 80.0-100.0 [facility] Comment on above: Order Comment: Speci men Type: BLOOD SPECIMEN Ordering Facility: [facility] Address: [address] [place] [address] Performed By: #### 2 276-4 #### [facility] CLIA [id number] [address] [place] [address] [place] Nucleated RBC (Bld) [#/Vol] 10*3/uL Normal <0.01 [facility] Comment on above: Order Comment: Speci men Type: BLOOD SPECIMEN Ordering Facility: [facility] Address: [address] [place] [address] Performed By: #### 2 276-4 #### [facility] CLIA [id number] [address] [place] [address] [place] Platelet mean volume (Bld) [Entitic vol] 10.5 fL Normal 9.0-12.7 [facility] Comment on above: Order Comment: Speci men Type: BLOOD SPECIMEN Ordering Facility: [facility] Address: [address] [place] [address] Performed By: #### 2 276-4 #### [facility] CLIA [id number] [address] [place] [address] [place] Platelets (Bld) [#/Vol] 316 10*3/uL Normal 150-400 [facility] Comment on above: Order Comment: Speci men Type: BLOOD SPECIMEN Ordering Facility: [facility] Address: [address] [place] [address] Performed By: #### 2 276-4 #### [facility] CLIA [id number] [address] [place] [address] [place] RBC (Bld) [#/Vol] 3.36 10*6/uL Low 3.90-5.20 [facility] Comment on above: Order Comment: Speci men Type: BLOOD SPECIMEN Ordering Facility: [facility] Address: [address] [place] [address] Performed By: #### 2 276-4 #### [facility] CLIA [id number] [address] [place] [address] [place] WBC (Bld) [#/Vol] 5.27 10*3/uL Normal 3.70-11.00 [facility] Comment on above: Order Comment: Speci men Type: BLOOD SPECIMEN Ordering Facility: [facility] Address: [address] [place] [address] Performed By: #### 2 276-4 #### [facility] CLIA [id number] [address] [place] [address] [place] FERRITINon 06-27-2024 Ferritin [Mass/Vol] 67.5 ng/mL 14.7 - 205.1 ng/mL [facility] Ferritin SerPl-mCncon 2023 Ferritin [Mass/Vol] 67.5 ng/mL Normal 14.7-205.1 [facility] Comment on above: Order Comment: Speci men Type: BLOOD SPECIMEN Ordering Facility: [facility] Address: [address] [place] [address] Performed By: #### 2 276-4 #### [facility] CLIA [id number] [address] [place] [address] [place] Ferritin [Mass/Vol]on 2023 Interpretation and review of laboratory results Normal [facility] Iron and Iron binding capaci ty panelon 06-27-2024 Interpretation and review of laboratory results Abnormal [facility] Iron [Mass/Vol] 30 ug/dL Low 41 - 186 ug/dL [facility] Iron binding capacity [Mass/Vol] 298 ug/dL 232 - 386 ug/dL [facility] Iron/TIBC [Molar ratio] 10.1 % Low 15.0 - 57.0 % [facility] Iron [Mass/Vol] 30 ug/dL Low 41-186 [facility] Comment on above: Order Comment: Speci men Type: BLOOD SPECIMEN Ordering Facility: [facility] Address: [address] [place] [address] Performed By: #### 2 276-4 #### [facility] CLIA [id number] [address] [place] [address] [facility] Iron binding capacity [Mass/Vol] 298 ug/dL Normal 232-386 [facility] Comment on above: Order Comment: Speci isabella Type: BLOOD SPECIMEN Ordering Facility: [facility] Address: [address] [place] [address] Performed By: #### 2 276-4 #### [facility] CLIA [id number] [address] [place] [address] Iron/TIBC [Molar ratio] 10.1 % Low 15.0-57.0 [facility] Comment on above: Order Comment: Speci men Type: BLOOD SPECIMEN [facility] [facility] Address: [address] [place] [address] Performed By: #### 2 276-4 #### [facility] CLIA [id number] [address] [place] [address] CBC panel Auto (Bld)on 06-25 Erythrocyte distribution width (RBC) [Ratio] 15.9 % High 11.5 - 15.0 % [facility] Hematocrit (Bld) [Volume fraction] 28.7 % Low 36.0 - 46.0 % [facility] Hemoglobin (Bld) [Mass/Vol] 9.0 g/dL Low 11.5 - 15.5 g/dL [facility] Interpretation and review of laboratory results Abnormal [facility] MCH (RBC) [Entitic mass] 26.7 pg 26.0 - 34.0 pg [facility] MCHC (RBC) [Mass/Vol] 31.4 g/dL 30.5 - 36.0 g/dL [facility] MCV (RBC) [Entitic vol] 85.2 fL 80.0 - 100.0 fL [facility] Nucleated RBC (Bld) [#/Vol] NINF [facility] Platelet mean volume (Bld) [Entitic vol] 10.8 fL 9.0 - 12.7 fL [facility] Platelets (Bld) [#/Vol] 315 10*3/uL [facility] RBC (Bld) [#/Vol] 3.37 10*6/uL Low 3.90 - 5.2 0 m/uL [facility] WBC (Bld) [#/Vol] 4.96 10*3/uL [facility] Erythrocyte distribution width (RBC) [Ratio] 15.9 % High 11.5-15.0 [facility] Comment on above: Order Comment: Speci men Type: BLOOD SPECIMEN Ordering Facility: [facility] Address: [address] [place] [address] Performed By: #### 2 4362-6 #### [facility] CLIA [id number] [address] [place] [address] [place] Hematocrit (Bld) [Volume fraction] 28.7 % Low 36.0-46.0 [facility] Comment on above: Order Comment: Speci men Type: BLOOD SPECIMEN Ordering Facility: [facility] Address: [address] [place] [address] Performed By: #### 2 4362-6 #### [facility] CLIA [id number] [address] [place] [address] [place] Hemoglobin (Bld) [Mass/Vol] 9.0 g/dL Low 11.5-15.5 [facility] Comment on above: Order Comment: Speci men Type: BLOOD SPECIMEN Ordering Facility: [facility] Address: [address] [place] [address] Performed By: #### 2 4362-6 #### [facility] CLIA [id number] [address] [place] [address] [place] MCH (RBC) [Entitic mass] 26.7 pg Normal 26.0-34.0 [facility] Comment on above: Order Comment: Speci men Type: BLOOD SPECIMEN Ordering Facility: [facility] Address: [address] [place] [address] Performed By: #### 2 4362-6 #### [facility] CLIA [id number] [address] [place] [address] [place] MCHC (RBC) [Mass/Vol] 31.4 g/dL Normal 30.5-36.0 [facility] Comment on above: Order Comment: Speci men Type: BLOOD SPECIMEN Ordering Facility: [facility] Address: [address] [place] [address] Performed By: #### 2 4362-6 #### [facility] CLIA [id number] [address] [place] [address] [place] MCV (RBC) [Entitic vol] 85.2 fL Normal 80.0-100.0 [facility] Comment on above: Order Comment: Speci men Type: BLOOD SPECIMEN Ordering Facility: [facility] Address: [address] [place] [address] Performed By: #### 2 4362-6 #### [facility] CLIA [id number] [address] [place] [address] [place] Nucleated RBC (Bld) [#/Vol] 10*3/uL Normal <0.01 [facility] Comment on above: Order Comment: Speci men Type: BLOOD SPECIMEN Ordering Facility: [facility] Address: [address] [place] [address] Performed By: #### 2 4362-6 #### [facility] CLIA [id number] [address] [place] [address] [place] Platelet mean volume (Bld) [Entitic vol] 10.8 fL Normal 9.0-12.7 [facility] Comment on above: Order Comment: Speci men Type: BLOOD SPECIMEN Ordering Facility: [facility] Address: [address] [place] [address] Performed By: #### 2 4362-6 #### [facility] CLIA [id number] [address] [place] [address] [place] Platelets (Bld) [#/Vol] 315 10*3/uL Normal 150-400 [facility] Comment on above: Order Comment: Speci men Type: BLOOD SPECIMEN Ordering Facility: [facility] Address: [address] [place] [address] Performed By: #### 2 4362-6 #### [facility] CLIA [id number] [address] [place] [address] [place] RBC (Bld) [#/Vol] 3.37 10*6/uL Low 3.90-5.20 [facility] Comment on above: Order Comment: Speci men Type: BLOOD SPECIMEN Ordering Facility: [facility] Address: [address] [place] [address] Performed By: #### 2 4362-6 #### [facility] CLIA [id number] [address] [place] [address] [place] WBC (Bld) [#/Vol] 4.96 10*3/uL Normal 3.70-11.00 [facility] Comment on above: Order Comment: Speci men Type: BLOOD SPECIMEN Ordering Facility: [facility] Address: [address] [place] [address] Performed By: #### 2 4362-6 #### [facility] CLIA [id number] [address] [place] [address] [place] Basic metabolic 2000 panelon 06-21-2024 Anion gap [Moles/Vol] 12 mmol/L 8 - 15 mmol/L [facility] Calcium [Mass/Vol] 9.3 mg/dL 8.5 - 10. 2 mg/dL [facility] Chloride [Moles/Vol] 108 mmol/L High 98 - 10 7 mmol/L [facility] CO2 [Moles/Vol] 21 mmol/L Low 22 - 30 mmol/L [facility] Creatinine [Mass/Vol] 0.92 mg/dL 0.58 - 0.96 mg/dL [facility] GFR/1.73 sq M.predicted among non-blacks MDRD (S/P/Bld) [Vol rate/Area] 62 mL/min/{1.73_m2} - PINF [facility] Comment on above: Estimated Glomerular Filtration Rate (eGFR) is calculated using the 2020 CKD-EPI creatinine equation. This equation utilizes serum creatinine, sex, and age as parameters. The creatinine assay has traceable calibration to isotope dilution-mass spectrometry. Refer to KDIGO guidelines for clinical interpretation. In patients with unstable renal function, e.g. those with acute kidney injury, the eGFR may not accurately reflect actual GFR. Glucose [Mass/Vol] 101 mg/dL High 74 - 99 mg/dL [facility] Comment on above: The [place] [employer] Association (ADA) provides guidance for cutoff values for fasting glucose and random glucose. The ADA defines fasting as no caloric intake for at least 8 hours. Fasting plasma glucose results between 100 to 125 mg/dL indicate increased risk for diabetes (prediabetes). Fasting plasma glucose results greater than or equal to 126 mg/dL meet the criteria for diagnosis of diabetes. In the absence of unequivocal hyperglycemia, results should be confirmed by repeat testing. In a patient with classic symptoms of hyperglycemia or hyperglycemic crisis, random plasma glucose results greater than or equal to 200 mg/dL meet the criteria for diagnosis of diabetes. Reference: Standards of Medical Care in Diabetes 2016, [place] [employer]. Diabetes Care. 2016.39(Suppl 1). Interpretation and review of laboratory results Abnormal [facility] Potassium [Moles/Vol] 4.6 mmol/L 3.7 - 5.1 mmol/L [facility] Sodium [Moles/Vol] 141 mmol/L 136 - 144 mmol/L [facility] Urea nitrogen [Mass/Vol] 22 mg/dL High 7 - 21 mg/dL [facility] Anion gap [Moles/Vol] 12 mmol/L Normal 8-15 [facility] Comment on above: Order Comment: Rhina mason Type: BLOOD SPECIMEN Ordering Facility: [facility] Address: [address] [place] [address] Performed By: #### 2 4362-6 #### [facility] CLIA [id number] [address] [place] [address] [place] Calcium [Mass/Vol] 9.3 mg/dL Normal 8.5-10.2 [facility] Comment on above: Order Comment: Samiri men Type: BLOOD SPECIMEN Ordering Facility: [facility] Address: [address] [place] [address] Performed By: #### 2 4362-6 #### [facility] CLIA [id number] [address] [place] [address] [place] Chloride [Moles/Vol] 108 mmol/L High 98-107 [facility] Comment on above: Order Comment: Speci men Type: BLOOD SPECIMEN Ordering Facility: [facility] Address: [address] [place] [address] Performed By: #### 2 4362-6 #### [facility] CLIA [id number] [address] [place] [address] [place] CO2 [Moles/Vol] 21 mmol/L Low 22-30 [facility] Comment on above: Order Comment: Speci men Type: BLOOD SPECIMEN Ordering Facility: [facility] Address: [address] [place] [address] Performed By: #### 2 4362-6 #### [facility] CLIA [id number] [address] [place] [address] [place] Creatinine [Mass/Vol] 0.92 mg/dL Normal 0.58-0.96 [facility] Comment on above: Order Comment: Speci men Type: BLOOD SPECIMEN Ordering Facility: [facility] Address: [address] [place] [address] Performed By: #### 2 4362-6 #### [facility] CLIA [id number] [address] [place] [address] [place] Creatinine and Glomerular filtration rate.predicted panel (S/P/Bld) 62 mL/min/1.73m??? Normal >=60 [facility] Comment on above: Order Comment: Speci men Type: BLOOD SPECIMEN Ordering Facility: [facility] Address: [address] [place] [address] Result Comment: Isa mated Glomerular Filtration Rate (eGFR) is calculated using the 2020 CKD-EPI creatinine equation. This equation utilizes serum creatinine, sex, and age as parameters. The creatinine assay has traceable calibration to isotope dilution-mass spectrometry. Refer to KDIGO guidelines for clinical interpretation. In patients with unstable renal function, e.g. those with acute kidney injury, the eGFR may not accurately reflect actual GFR. Performed By: #### 2 4362-6 #### [facility] CLIA [id number] [address] [place] [address] [place] Glucose [Mass/Vol] 101 mg/dL High 74-99 [facility] Comment on above: Order Comment: Rhina mason Type: BLOOD SPECIMEN Ordering Facility: [facility] Address: [address] [place] [address] Result Comment: The [place] Diabetes [employer] (ADA) provides guidance for cutoff values for fasting glucose and random glucose. The ADA defines fasting as no caloric intake for at least 8 hours. Fasting plasma glucose results between 100 to 125 mg/dL indicate increased risk for diabetes (prediabetes). Fasting plasma glucose results greater than or equal to 126 mg/dL meet the criteria for diagnosis of diabetes. In the absence of unequivocal hyperglycemia, results should be confirmed by repeat testing. In a patient with classic symptoms of hyperglycemia or hyperglycemic crisis, random plasma glucose results greater than or equal to 200 mg/dL meet the criteria for diagnosis of diabetes. Reference: Standards of Medical Care in Diabetes 2016, [place] [employer]. Diabetes Care. 2016.39(Suppl 1). Performed By: #### 2 4362-6 #### [facility] CLIA [id number] [address] [place] [address] [place] Potassium [Moles/Vol] 4.6 mmol/L Normal 3.7-5.1 [facility] Comment on above: Order Comment: Rhina mason Type: BLOOD SPECIMEN Ordering Facility: [facility] Address: [address] [place] [address] Performed By: #### 2 4362-6 #### [facility] CLIA [id number] [address] [place] [address] [place] Sodium [Moles/Vol] 141 mmol/L Normal 136-144 [facility] Comment on above: Order Comment: Rhina mason Type: BLOOD SPECIMEN Ordering Facility: [facility] Address: [address] [place] [address] Performed By: #### 2 4362-6 #### [facility] CLIA [id number] [address] [place] [address] [place] Urea nitrogen [Mass/Vol] 22 mg/dL High 7-21 [facility] Comment on above: Order Comment: Speci men Type: BLOOD SPECIMEN Ordering Facility: [facility] Address: [address] [place] [address] Performed By: #### 2 4362-6 #### [facility] CLIA [id number] [address] [place] [address] [place] CBC panel Auto (Bld)on 06-21 Erythrocyte distribution width (RBC) [Ratio] 15.8 % High 11.5 - 15.0 % [facility] Hematocrit (Bld) [Volume fraction] 34.2 % Low 36.0 - 46.0 % [facility] Hemoglobin (Bld) [Mass/Vol] 10.6 g/dL Low 11.5 - 15.5 g/dL [facility] Interpretation and review of laboratory results Abnormal [facility] MCH (RBC) [Entitic mass] 26.4 pg 26.0 - 34.0 pg [facility] MCHC (RBC) [Mass/Vol] 31.0 g/dL 30.5 - 36.0 g/dL [facility] MCV (RBC) [Entitic vol] 85.3 fL 80.0 - 100.0 fL [facility] Nucleated RBC (Bld) [#/Vol] NINF [facility] Platelet mean volume (Bld) [Entitic vol] 10.7 fL 9.0 - 12.7 fL [facility] Platelets (Bld) [#/Vol] 300 10*3/uL [facility] RBC (Bld) [#/Vol] 4.01 10*6/uL 3.90 - 5.2 0 m/uL [facility] WBC (Bld) [#/Vol] 5.52 10*3/uL [facility] Erythrocyte distribution width (RBC) [Ratio] 15.8 % High 11.5-15.0 [facility] Comment on above: Order Comment: Speci men Type: BLOOD SPECIMEN Ordering Facility: [facility] Address: [address] [place] [address] Performed By: #### 2 4362-6 #### [facility] CLIA [id number] [address] [place] [address] [place] Hematocrit (Bld) [Volume fraction] 34.2 % Low 36.0-46.0 [facility] Comment on above: Order Comment: Speci men Type: BLOOD SPECIMEN Ordering Facility: [facility] Address: [address] [place] [address] Performed By: #### 2 4362-6 #### [facility] CLIA [id number] [address] [place] [address] [place] Hemoglobin (Bld) [Mass/Vol] 10.6 g/dL Low 11.5-15.5 [facility] Comment on above: Order Comment: Speci men Type: BLOOD SPECIMEN Ordering Facility: [facility] Address: [address] [place] [address] Performed By: #### 2 4362-6 #### [facility] CLIA [id number] [address] [place] [address] [place] MCH (RBC) [Entitic mass] 26.4 pg Normal 26.0-34.0 [facility] Comment on above: Order Comment: Speci men Type: BLOOD SPECIMEN Ordering Facility: [facility] Address: [address] [place] [address] Performed By: #### 2 4362-6 #### [facility] CLIA [id number] [address] [place] [address] [place] MCHC (RBC) [Mass/Vol] 31.0 g/dL Normal 30.5-36.0 [facility] Comment on above: Order Comment: Speci men Type: BLOOD SPECIMEN Ordering Facility: [facility] Address: [address] [place] [address] Performed By: #### 2 4362-6 #### [facility] CLIA [id number] [address] [place] [address] [place] MCV (RBC) [Entitic vol] 85.3 fL Normal 80.0-100.0 [facility] Comment on above: Order Comment: Speci men Type: BLOOD SPECIMEN Ordering Facility: [facility] Address: [address] [place] [address] Performed By: #### 2 4362-6 #### [facility] CLIA [id number] [address] [place] [address] [place] Nucleated RBC (Bld) [#/Vol] 10*3/uL Normal <0.01 [facility] Comment on above: Order Comment: Speci men Type: BLOOD SPECIMEN Ordering Facility: [facility] Address: [address] [place] [address] Performed By: #### 2 4362-6 #### [facility] CLIA [id number] [address] [place] [address] [place] Platelet mean volume (Bld) [Entitic vol] 10.7 fL Normal 9.0-12.7 [facility] Comment on above: Order Comment: Speci men Type: BLOOD SPECIMEN Ordering Facility: [facility] Address: [address] [place] [address] Performed By: #### 2 4362-6 #### [facility] CLIA [id number] [address] [place] [address] [place] Platelets (Bld) [#/Vol] 300 10*3/uL Normal 150-400 [facility] Comment on above: Order Comment: Speci men Type: BLOOD SPECIMEN Ordering Facility: [facility] Address: [address] [place] [address] Performed By: #### 2 4362-6 #### [facility] CLIA [id number] [address] [place] [address] [place] RBC (Bld) [#/Vol] 4.01 10*6/uL Normal 3.90-5.20 [facility] Comment on above: Order Comment: Speci men Type: BLOOD SPECIMEN Ordering Facility: [facility] Address: [address] [place] [address] Performed By: #### 2 4362-6 #### [facility] CLIA [id number] [address] [place] [address] [place] WBC (Bld) [#/Vol] 5.52 10*3/uL Normal 3.70-11.00 [facility] Comment on above: Order Comment: Speci men Type: BLOOD SPECIMEN Ordering Facility: [facility] Address: [address] [place] [address] Performed By: #### 2 4362-6 #### [facility] CLIA [id number] [address] [place] [address] [place] Basic metabolic 2000 panelon 06-19-2024 Anion gap [Moles/Vol] 10 mmol/L Normal 8-15 [facility] Comment on above: Order Comment: Speci men Type: BLOOD SPECIMEN Ordering Facility: [facility] Address: [address] [place] [address] Performed By: #### 2 4321-2, 02828-9, 77058-8 #### [facility] CLIA [id number] [address] [place] [address] [place] Calcium [Mass/Vol] 8.9 mg/dL Normal 8.5-10.2 [facility] Comment on above: Order Comment: Speci men Type: BLOOD SPECIMEN Ordering Facility: [facility] Address: [address] [place] [address] Performed By: #### 2 4321-2, 68765-6, 57420-9 #### [facility] CLIA [id number] [address] [place] [address] [place] Chloride [Moles/Vol] 109 mmol/L High 98-107 [facility] Comment on above: Order Comment: Speci men Type: BLOOD SPECIMEN Ordering Facility: [facility] Address: [address] [id number] Performed By: #### 2 4321-2, 84530-1, #### [facility] CLIA [id number] [address] [place] [address] [place] CO2 [Moles/Vol] 21 mmol/L Low 22-30 [facility] Comment on above: Order Comment: Speci men Type: BLOOD SPECIMEN Ordering Facility: [facility] Address: [address] [place] [address] Performed By: #### 2 4321-2, 18072-5, #### [facility] CLIA [id number] [address] STATES OF [facility] Creatinine [Mass/Vol] 1.04 mg/dL High 0.58-0.96 [facility] Comment on above: Order Comment: Speci men Type: BLOOD SPECIMEN Ordering Facility: [facility] Address: [address] [place] [address] Performed By: #### 2 4321-2, 38003-8, #### [facility] CLIA [id number] [address] Creatinine and Glomerular filtration rate.predicted panel (S/P/Bld) 53 mL/min/1.73m??? Low >=60 [facility] Comment on above: Order Comment: Speci men Type: BLOOD SPECIMEN Ordering Facility: [facility] Address: [address] [place] [address] Result Comment: Isa mated Glomerular Filtration Rate (eGFR) is calculated using the 2020 CKD-EPI creatinine equation. This equation utilizes serum creatinine, sex, and age as parameters. The creatinine assay has traceable calibration to isotope dilution-mass spectrometry. Refer to KDIGO guidelines for clinical interpretation. In patients with unstable renal function, e.g. those with acute kidney injury, the eGFR may not accurately reflect actual GFR. Performed By: #### 2 4321-2, 86921-5, #### [facility] CLIA [id number] [address] [place] Glucose [Mass/Vol] 103 mg/dL High 74-99 [facility] Comment on above: Order Comment: Speci men Type: BLOOD SPECIMEN Ordering Facility: [facility] Address: [address] [place] [address] Result Comment: The [place] [employer] (ADA) provides guidance for cutoff values for fasting glucose and random glucose. The ADA defines fasting as no caloric intake for at least 8 hours. Fasting plasma glucose results between 100 to 125 mg/dL indicate increased risk for diabetes (prediabetes). Fasting plasma glucose results greater than or equal to 126 mg/dL meet the criteria for diagnosis of diabetes. In the absence of unequivocal hyperglycemia, results should be confirmed by repeat testing. In a patient with classic symptoms of hyperglycemia or hyperglycemic crisis, random plasma glucose results greater than or equal to 200 mg/dL meet the criteria for diagnosis of diabetes. Reference: Standards of Medical Care in Diabetes 2016, [place] [employer]. Diabetes Care. 2016.39(Suppl 1). Performed By: #### 2 4321-2, 47825-1, #### [facility] CLIA [id number] [address] [place] [address] [place] Potassium [Moles/Vol] 4.8 mmol/L Normal 3.7-5.1 [facility] Comment on above: Order Comment: Rhina mason Type: BLOOD SPECIMEN Ordering Facility: [facility] Address: [address] [place] [address] Performed By: #### 2 4321-2, 31765-1, #### [facility] CLIA [id number] [address] [place] [address] [place] Sodium [Moles/Vol] 140 mmol/L Normal 136-144 [facility] Comment on above: Order Comment: Rhina men Type: BLOOD SPECIMEN Ordering Facility: [facility] Address: [address] [place] [address] Performed By: #### 2 4321-2, 49402-9, #### [facility] CLIA [id number] [address] [place] [address] [place] Urea nitrogen [Mass/Vol] 25 mg/dL High 7-21 [facility] Comment on above: Order Comment: Speci men Type: BLOOD SPECIMEN Ordering Facility: [facility] Address: [address] [place] [address] Performed By: #### 2 4321-2, 30492-4, #### [facility] CLIA [id number] [address] [place] CBC panel Auto (Bld)on 06-19 Erythrocyte distribution width (RBC) [Ratio] 15.9 % High 11.5-15.0 [facility] Comment on above: Order Comment: Speci men Type: BLOOD SPECIMEN Ordering Facility: [facility] Address: [address] [place] [address] Performed By: #### 2 4321-2, 62663-0, #### [facility] CLIA [id number] [address] STATES OF [facility] Hematocrit (Bld) [Volume fraction] 30.6 % Low 36.0-46.0 [facility] Comment on above: Order Comment: Speci men Type: BLOOD SPECIMEN Ordering Facility: [facility] Address: [address] [place] [address] Performed By: #### 2 1-2, 06890-7, #### [facility] CLIA [id number] [address] [place] Hemoglobin (Bld) [Mass/Vol] 9.5 g/dL Low 11.5-15.5 [facility] Comment on above: Order Comment: Speci men Type: BLOOD SPECIMEN Ordering Facility: [facility] Address: [address] [place] [address] Performed By: #### 2 1-2, 72386-9, #### [facility] CLIA [id number] [address] [place] MCH (RBC) [Entitic mass] 26.5 pg Normal 26.0-34.0 [facility] Comment on above: Order Comment: Speci men Type: BLOOD SPECIMEN Ordering Facility: [facility] Address: [address] [place] [address] Performed By: #### 2 4321-2, 91525-1, #### [facility] CLIA [id number] [address] MCHC (RBC) [Mass/Vol] 31.0 g/dL Normal 30.5-36.0 [facility] Comment on above: Order Comment: Speci men Type: BLOOD SPECIMEN Ordering Facility: [facility] Address: [address] [place] [address] Performed By: #### 2 4321-2, 05006-8, #### [facility] CLIA [id number] [address] OF [facility] MCV (RBC) [Entitic vol] 85.5 fL Normal 80.0-100.0 [facility] Comment on above: Order Comment: Speci men Type: BLOOD SPECIMEN Ordering Facility: [facility] Address: [address] [place] [address] Performed By: #### 2 1-2, 58286-9, #### [facility] CLIA [id number] [address] Nucleated RBC (Bld) [#/Vol] 10*3/uL Normal <0.01 [facility] Comment on above: Order Comment: Speci men Type: BLOOD SPECIMEN Ordering Facility: [facility] Address: [address] [place] [address] Performed By: #### 2 4321-2, 61026-3, #### [facility] CLIA [id number] [address] Platelet mean volume (Bld) [Entitic vol] 10.4 fL Normal 9.0-12.7 [facility] Comment on above: Order Comment: Speci men Type: BLOOD SPECIMEN Ordering Facility: [facility] Address: [address] [place] [address] Performed By: #### 2 4321-2, 82393-8, 67284-8 #### [facility] CLIA [id number] [address] OF [place] Platelets (Bld) [#/Vol] 245 10*3/uL Normal 150-400 [facility] Comment on above: Order Comment: Speci men Type: BLOOD SPECIMEN Ordering Facility: [facility] Address: [address] [place] [address] Performed By: #### 2 4321-2, 66397-0, #### [facility] CLIA [id number] [address] OF [place] RBC (Bld) [#/Vol] 3.58 10*6/uL Low 3.90-5.20 [facility] Comment on above: Order Comment: Speci men Type: BLOOD SPECIMEN Ordering Facility: [facility] Address: [address] [place] [address] Performed By: #### 2 4321-2, 42423-1, #### [facility] CLIA [id number] [address] OF [facility] WBC (Bld) [#/Vol] 4.67 10*3/uL Normal 3.70-11.00 [facility] Comment on above: Order Comment: Speci men Type: BLOOD SPECIMEN Ordering Facility: [facility] Address: [address] [place] [address] Performed By: #### 2 4321-2, 10035-6, 44011-3 #### [facility] CLIA [id number] [address] OF [place] CNDSon 06-19-2024 CNDS HNO ID: [id number] Author: DON EDWARDS DO Service: Hospital Medicine Author Type: Physician Type: Discharge Summary Filed: 06/19/2024 13:02 Note Text: DISCHARGE SUMMARY PATIENT NAME: Mel Castillo Code Status: DNR-CCA Highest Readmission Risk Score: 21 The 30 day readmissions risk score is derived from an internally validated risk model which evaluates patient level characteristics, utilization history, medication orders and lab results up until the day of discharge. Patients with a score of 40 or above are considered highest risk for readmission. Specific patient level drivers will be listed at the bottom of the summary. Admission Information Admission Information ADMIT DATE: 06/10/2024 DISCHARGE DATE: 06/19/2024 MY DOCTORS AND MEDICAL TEAM: My Main Hospital Doctor: Don Edwards DO Primary Care Provider: Jared Evans MD MD My Medical Team Members: Treatment Team: Attending Provider: Don Edwards DO Consulting: Pratibha Logan MD Consulting: Torsten Otoole MD Primary Service: BLAS ALVAREZ MY CONDITION AT DISCHARGE: Stable REASON I WAS IN THE HOSPITAL: acute stroke, dysarthria and dysphagia SUMMARY OF WHAT HAPPENED WHILE I WAS IN THE HOSPITAL: Patient was admitted for acute stroke, dysarthria and dysphagia. 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 who is on warfarin for A-fib with subtherapeutic INR presenting with dizziness, vomiting, was admitted for CVA. MRI showed multiple sites of stroke but no large vessel cerebrovascular disease. Echo EF 60% large left atrial somewhat mobile mass that did not appear to be a thrombus crossing the interatrial septum. Cardiology saw patient in hospital and recommended Lovenox at discharge for lifelong as she had previously had a clot while on eliquis. She was seen by therapy and [facility] facility was recommended. He slowly was improving. She was discharged to [facility] facility in stable condition. 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 Wound/Surgical Site Care Wound/Surgical Site care No wounds Call Your Doctor If Call your Doctor For lightheadedness, fainting, or confusion. For temperature greater than 101F. For swollen glands or cold, clammy skin. For persistent or heavy bleeding. For a severe headache. For persistent nausea/vomiting over 24 hours. Follow Up Appointments Follow-Up Appointment When: In 1 week Patient/Parents to call for appointment?: Yes Jared Evans MD [phone] [address] [facility] [address] PCP Requested Referral Follow-Up Appointment When: In 2 weeks Patient/Parents to call for appointment?: Yes Hermila Padilla MD [phone] [facility] [address] PCP Requested Referral Follow-Up Appointment For hydronephrosis and renal lesion When: In 2 weeks Patient/Parents to call for appointment?: Yes Mikhail Vuong Jr., MD [phone] [address] [facility] [address] PCP Requested Referral Follow-Up Appointment With: neurology When: In 4 weeks Patient/Parents to call for appointment?: Yes Additional Provider to Provider Information: Treatment Team: Attending Provider: Don Edwards DO Consulting: Pratibha Logan MD Consulting: Torsten Otoole MD Primary Service: [place] SHILO [facility] Critical Issues: SPECIALIST FOLLOW-UP: urology, cardiology, neurology LABS AND PROCEDURES PENDING AT DISCHARGE: No pending results. FOLLOW-UP APPOINTMENTS ALREADY SCHEDULED WITH A [facility] PROVIDER: No future appointments. Discharge Information Row Name ED to Hosp-Admission (Current) from 06/10/2024 in [place] [facility] NEURO/CARD Rehab Facility Agency [facility] ALLERGIES Allergen Reactions Percocet [Oxycodone* Itching DISCHARGE MEDICA (more content not included)... Normal [facility] Basic metabolic 2000 panelon 06-18-2024 Anion gap [Moles/Vol] 10 mmol/L Normal 8-15 [facility] Comment on above: Order Comment: Speci men Type: BLOOD SPECIMEN Ordering Facility: [facility] Address: [address] [place] [address] [place] [address] Performed By: #### 2 4321-2, 84585-6, #### [facility] CLIA [id number] 1 [place] [address] [place] Calcium [Mass/Vol] 8.9 mg/dL Normal 8.5-10.2 [facility] Comment on above: Order Comment: Speci men Type: BLOOD SPECIMEN Ordering Facility: [facility] Address: [address] [place] [address] Performed By: #### 2 4321-2, 35892-2, #### [facility] CLIA [id number] 1 [place] [address] [place] Chloride [Moles/Vol] 110 mmol/L High 98-107 [facility] Comment on above: Order Comment: Speci men Type: BLOOD SPECIMEN Ordering Facility: [facility] Address: [address] [place] [address] Performed By: #### 2 4321-2, 25198-6, #### [facility] CLIA [id number] 1 [place] [address] [place] CO2 [Moles/Vol] 21 mmol/L Low 22-30 [facility] Comment on above: Order Comment: Speci men Type: BLOOD SPECIMEN Ordering Facility: [facility] Address: [address] [place] [address] Performed By: #### 2 4321-2, 95183-4, #### [facility] CLIA [id number] 1 [place] [address] [place] Creatinine [Mass/Vol] 0.96 mg/dL Normal 0.58-0.96 [facility] Comment on above: Order Comment: Speci men Type: BLOOD SPECIMEN Ordering Facility: [facility] Address: [address] [place] [address] Performed By: #### 2 4321-2, 23981-0, #### [facility] CLIA [id number] 1 [place] [address] [place] Creatinine and Glomerular filtration rate.predicted panel (S/P/Bld) 58 mL/min/1.73m??? Low >=60 [facility] Comment on above: Order Comment: Rhina mason Type: BLOOD SPECIMEN Ordering Facility: [facility] Address: [address] [place] [address] Result Comment: Isa mated Glomerular Filtration Rate (eGFR) is calculated using the 2020 CKD-EPI creatinine equation. This equation utilizes serum creatinine, sex, and age as parameters. The creatinine assay has traceable calibration to isotope dilution-mass spectrometry. Refer to KDIGO guidelines for clinical interpretation. In patients with unstable renal function, e.g. those with acute kidney injury, the eGFR may not accurately reflect actual GFR. Performed By: #### 2 4321-2, 79369-5, #### [facility] CLIA [id number] 1 [place] [address] [place] Glucose [Mass/Vol] 112 mg/dL High 74-99 [facility] Comment on above: Order Comment: Rhina mason Type: BLOOD SPECIMEN Ordering Facility: [facility] Address: [address] [place] [address] Result Comment: The [place] Diabetes [employer] (ADA) provides guidance for cutoff values for fasting glucose and random glucose. The ADA defines fasting as no caloric intake for at least 8 hours. Fasting plasma glucose results between 100 to 125 mg/dL indicate increased risk for diabetes (prediabetes). Fasting plasma glucose results greater than or equal to 126 mg/dL meet the criteria for diagnosis of diabetes. In the absence of unequivocal hyperglycemia, results should be confirmed by repeat testing. In a patient with classic symptoms of hyperglycemia or hyperglycemic crisis, random plasma glucose results greater than or equal to 200 mg/dL meet the criteria for diagnosis of diabetes. Reference: Standards of Medical Care in Diabetes 2016, [place] [employer]. Diabetes Care. 2016.39(Suppl 1). Performed By: #### 2 4321-2, 04937-6, #### [facility] CLIA [id number] 1 [place] [address] [place] Potassium [Moles/Vol] 4.4 mmol/L Normal 3.7-5.1 [facility] Comment on above: Order Comment: Speci men Type: BLOOD SPECIMEN Ordering Facility: [facility] Address: [address] [place] [address] Performed By: #### 2 4321-2, 66550-9, #### [facility] CLIA [id number] [address] OF [facility] Sodium [Moles/Vol] 141 mmol/L Normal 136-144 [facility] Comment on above: Order Comment: Speci men Type: BLOOD SPECIMEN Ordering Facility: [facility] Address: [address] [place] [address] Performed By: #### 2 4321-2, 38465-5, #### [facility] CLIA [id number] [address] STATES [place] Urea nitrogen [Mass/Vol] 22 mg/dL High 7-21 [facility] Comment on above: Order Comment: Speci men Type: BLOOD SPECIMEN Ordering Facility: [facility] Address: [address] [place] [address] Performed By: #### 2 4321-2, 73987-1, #### [facility] CLIA [id number] [address] [place] CBC panel Auto (Bld)on 06-18 Erythrocyte distribution width (RBC) [Ratio] 15.9 % High 11.5-15.0 [facility] Comment on above: Order Comment: Speci men Type: BLOOD SPECIMENOrdering Facility: [facility] Address: [address] [place] [address] Performed By: #### 5 8410-2 ####[facility] [id number] [place] [address] OF [facility] Hematocrit (Bld) [Volume fraction] 34.3 % Low 36.0-46.0 [facility] Comment on above: Order Comment: Speci men Type: BLOOD SPECIMENOrdering Facility: [facility] Address: [address] [place] [address] Performed By: #### 5 8410-2 ####[facility] [id number] [address] STATES OF [facility] Hemoglobin (Bld) [Mass/Vol] 10.7 g/dL Low 11.5-15.5 [facility] Comment on above: Order Comment: Speci men Type: BLOOD SPECIMENOrdering Facility: [facility] Address: [address] [place] [address] Performed By: #### 5 8410-2 ####[facility] [id number] [address] MCH (RBC) [Entitic mass] 26.7 pg Normal 26.0-34.0 [facility] Comment on above: Order Comment: Speci men Type: BLOOD SPECIMENOrdering Facility: [facility] Address: [address] [place] [address] Performed By: #### 5 8410-2 ####[facility] [id number] [address] MCHC (RBC) [Mass/Vol] 31.2 g/dL Normal 30.5-36.0 [facility] Comment on above: Order Comment: Speci men Type: BLOOD SPECIMENOrdering Facility: [facility] Address: [address] [place] [address] Performed By: #### 5 8410-2 ####[facility]IA [id number] [address] OF [place] MCV (RBC) [Entitic vol] 85.5 fL Normal 80.0-100.0 [facility] Comment on above: Order Comment: Speci men Type: BLOOD SPECIMENOrdering Facility: [facility] Address: [address] [place] [address] Performed By: #### 5 8410-2 ####[facility] [id number] [address] Nucleated RBC (Bld) [#/Vol] 10*3/uL Normal <0.01 [facility] Comment on above: Order Comment: Speci men Type: BLOOD SPECIMENOrdering Facility: [facility] Address: [address] [place] [address] Performed By: #### 5 8410-2 ####[facility]IA [id number] [address] [place] Platelet mean volume (Bld) [Entitic vol] 10.0 fL Normal 9.0-12.7 [facility] Comment on above: Order Comment: Speci men Type: BLOOD SPECIMENOrdering Facility: [facility] Address: [address] [place] [address] Performed By: #### 5 8410-2 ####[facility]IA [id number] [address] [place] Platelets (Bld) [#/Vol] 273 10*3/uL Normal 150-400 [facility] Comment on above: Order Comment: Speci men Type: BLOOD SPECIMENOrdering Facility: [facility] Address: [address] [place] [address] Performed By: #### 5 8410-2 ####[facility]ORYCLIA [id number] [place] [address] [place] RBC (Bld) [#/Vol] 4.01 10*6/uL Normal 3.90-5.20 [facility] Comment on above: Order Comment: Speci men Type: BLOOD SPECIMENOrdering Facility: [facility] Address: [address] [place] [address] Performed By: #### 5 8410-2 ####[facility]ORYCLIA [id number] [place] [address] [place] WBC (Bld) [#/Vol] 5.29 10*3/uL Normal 3.70-11.00 [facility] Comment on above: Order Comment: Speci men Type: BLOOD SPECIMENOrdering Facility: [facility] Address: [address] [place] [address] Performed By: #### 5 8410-2 ####[facility]ORYCLIA [id number] [address] Hepatic function 2000 panelo n 06-18-2024 Albumin [Mass/Vol] 3.5 g/dL Low 3.9-4.9 [facility] Comment on above: Order Comment: Speci men Type: BLOOD SPECIMEN Ordering Facility: [facility] Address: [address] [place] [address] Performed By: #### 2 4321-2, 76353-2, #### [facility] CLIA [id number] [address] OF [facility] ALP [Catalytic activity/Vol] 80 U/L Normal 34-123 [facility] Comment on above: Order Comment: Speci men Type: BLOOD SPECIMEN Ordering Facility: [facility] Address: [address] [place] [address] Performed By: #### 2 4321-2, 99176-8, #### [facility] CLIA [id number] [address] ALT With P-5'-P [Catalytic activity/Vol] 16 U/L Normal 7-38 [facility] Comment on above: Order Comment: Speci men Type: BLOOD SPECIMEN Ordering Facility: [facility] Address: [address] [place] [address] Performed By: #### 2 4321-2, 68538-9, #### [facility] CLIA [id number] [address] OF [facility] AST With P-5'-P [Catalytic activity/Vol] 20 U/L Normal 13-35 [facility] Comment on above: Order Comment: Speci men Type: BLOOD SPECIMEN Ordering Facility: [facility] Address: [address] [place] [address] Performed By: #### 2 4321-2, 93048-3, #### [facility] CLIA [id number] [address] [place] Bilirubin [Mass/Vol] 0.3 mg/dL Normal 0.2-1.3 [facility] Comment on above: Order Comment: Speci men Type: BLOOD SPECIMEN Ordering Facility: [facility] Address: [address] [place] [address] Performed By: #### 2 4321-2, 45909-1, #### [facility] CLIA [id number] 1 [place] [address] [place] Bilirubin.conjugated [Mass/Vol] mg/dL Normal <0.2 [facility] Comment on above: Order Comment: Speci men Type: BLOOD SPECIMEN Ordering Facility: [facility] Address: [address] [place] [address] Performed By: #### 2 4321-2, 14974-6, #### [facility] CLIA [id number] [address] Protein [Mass/Vol] 6.0 g/dL Low 6.3-8.0 [facility] Comment on above: Order Comment: Speci men Type: BLOOD SPECIMEN Ordering Facility: [facility] Address: [address] [place] [address] Performed By: #### 2 4321-2, 34459-4, #### [facility] CLIA [id number] [address] [place] Magnesium SerPl-mCncon 06-18 Magnesium [Mass/Vol] 1.9 mg/dL Normal 1.7-2.3 [facility] Comment on above: Order Comment: Speci men Type: BLOOD SPECIMEN Ordering Facility: [facility] Address: [address] [place] [address] Performed By: #### 2 4321-2, 02276-5, #### [facility] CLIA [id number] [address] [place] NUTRITIONon 06-18-2024 NUTRITION HNO ID: [id number] Author: NELSON AVILA RD Service: Nutrition Therapy Author Type: Registered Dietitian Type: Nutrition Filed: 06/18/2024 11:21 Note Text: NUTRITION THERAPY SCREEN NOTE SERVICE DATE: 06/18/2024 SERVICE TIME: 1105 Care Plan: Continue current diet --please reweigh Discharge Recommendations: Diet Diet: Heart Healthy Monitor and Evaluation: Meet greater than 75% of estimated needs Intake History: Current Nutrition Intake: Greater than 75% estimated energy needs Current Intake Over time: Greater than or equal to 7 days Average Daily Calorie Intake (kcal): 2535 kcal Average Daily Protein Intake (gm): 94 gm Average intake over: 3 days -Good appetite, but dislikes hospital food. Eating 100% of meals though. -C/o increased BM frequency overnight--pt attributes loose stools to large salad consumed yesterday. 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; 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) MNT Billing: $ Initial Assessment: 1-15 minutes SIGNATURE: Nelson Avila RD PATIENT NAME: Mel Castillo DATE: June 18, 2024 TIME: 11:18 AM Normal [facility] THERAPY NTon 06-18-2024 THERAPY NT HNO ID: [id number] Author: SELENA BARR, PT Service: Physical Therapy Author Type: Physical Therapist Type: Therapy (PT/OT/Speech/Resp) Filed: 06/18/2024 12:53 Note Text: Physical Therapy Treatment Summary SERVICE DATE: 06/18/2024 SERVICE TIME: 1056 to 1129 ROOM: [id number] PT 6 Clicks Score: 16 DISCHARGE RECOMMENDATIONS Acute Rehab Recommended Discharge Disposition Comments: Very unsteady and has poor perception of vertical mid line balance. Pt is a high risk of falls. Recommend Acute rehab at d/c Recommended Discharge Disposition Due to: Patient requires active, intensive rehabilitation by multiple therapy disciplines. Anticipate the patient will tolerate 3 hours of therapy per day., Ataxia, Balance deficits, Functional status decline, Requires multiple therapy disciplines, Coordination deficits ASSESSMENT Response to Therapy Interventions: Good Participation in Activities Pt with ongoing PT goals, making steady progress. Today improved transfers to min A and improved ambulation distance to 10 ftx2 with mod A. Reports dizziness with standing activity but demonstrates less trunk instability/lean during ambulation compared to prior sessions. Continues to express some fear/anxiety about falling but receptive to encouragement, pleased with her performance today and happy to be able to sit up in chair at end of session. Remains below baseline and appropriate for ongoing PT services. Will tolerate 3h/day combined therapies 5d/wk at d/c. PRECAUTIONS Bed/Chair Alarm, Fall Risk, Lines/Tubes/Drains CURRENT HOSPITAL COURSE Patient presents with acute onset of vertigo and nausea vomiting and weakness. 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 Also found to have hydronephrosis and L renal lesion, non-operative. 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 Family helps get groceries. Does not use any DME at baseline. Still drives. SUBJECTIVE Pt pleasant and agreeable to PT. Frustrated she's been here for so long. A bit anxious with mobility but receptive to encouragement. THERAPY DIAGNOSIS Ataxic gait, Unsteadiness on feet, Reduced mobility-other, Lack of coordination-other TREATMENT INTERVENTIONS Therapeutic Activity (10386) Therapeutic Activity (79589) Treatment Minutes: 25 $ Therapeutic Activity (36443) Billed Units: 2 units Timed Code Treatment (minutes): 25 Skilled Treatment Time (minutes): 25 TRAINING AND EDUCATION PROVIDED Anatomy and Impact on Deficits, Assistive Device Use, Bed Mobility, Benefits of In-Hospital Mobility, Discharge Planning, Gait Pattern, Reduction of Deviations, Role of Physical Therapy, Standing Balance, Transfers THERAPEUTIC SKILLS USED Cues for Sequencing/Proper Technique for Activity, Cuing Tactile, Cuing Verbal, Movement Facilitation, Muscle Activation Facilitation, Physical Assist FUNCTIONAL STATUS Mobility performed during session in bold, other mobility completed during prior session and may no longer be correct or appropriate to complete. Bed Mobility Rolling: Independent Supine To Sit: Contact Guard Assistance initially dizzy and with increased sway Sit to Supine: Minimal Assistance, Additional Information Scooting: Contact Guard Assistance Transfers Sit To Stand: Minimal Assistance, Additional Information cues to scoot to edge, push from edge; once up needs UE support immediately and is somewhat fearful; second trial with walker improved stability; x3 trials Stand To Sit: Minimal Assistance, Additional Information cued to back up fully to surface with legs touching, reach back for armrests and sit slowly Bed to Chair Minimal Assistance, Additional Information Bed To Chair Transfer Type: Stand Pivot Bed To Chair Transfer Equipment: (hand held assist) hand held assist for support during transition, cued to reach for chair armrest and light assist for stability during turning Gait Moderate Assistance, Additional Information pt with slow gait, fearful of falling but receptive to encouragement, afterward pleased with her performance; cues for walker management and keeping close, keeping eyes fixed on a single subject to limit dizziness with head turns/dynamic movement, taking small steps during turning; further distance limited by fatigue Gait Device: Wheeled Walker General Deviations/Observations : Jenni decreased, Lateral sway increased, Loss of Balance, Non-func (more content not included)... Normal [facility] THERAPY NT HNO ID: [id number] Author: ULI JEFFERSON OTR/[place] Service: Occupational Therapy Author Type: Occupational Therapist Type: Therapy (PT/OT/Speech/Resp) Filed: 06/18/2024 13:34 Note Text: Occupational Therapy Treatment Summary SERVICE DATE: 06/18/2024 SERVICE TIME: 1130 to 1154 ROOM: [id number] OT 6 Clicks Score: 15 DISCHARGE RECOMMENDATIONS Acute Rehab Recommended Discharge Disposition Comments: Patient can tolerate 3 hours of therapy at d/c Recommended Discharge Disposition Due to: Patient requires active, intensive rehabilitation by multiple therapy disciplines. Anticipate the patient will tolerate 3 hours of therapy per day., ADL impairment ASSESSMENT Response to Therapy Interventions: Good Participation in Activities Ms. Castillo was seen today for an occupational therapy treatment session today. Pt was Axox3 throughout session, however, demonstrated impairments in functional cognition, insight, and judgment. Pt also demonstrates impaired functional strength and coordination with Adls. Pt continues to be appropriate for AR at dc once medically stable for dc. PRECAUTIONS Bed/Chair Alarm, Fall Risk, Lines/Tubes/Drains CURRENT HOSPITAL COURSE Patient presents with acute onset of vertigo and nausea vomiting and weakness. 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 Also found to have hydronephrosis and L renal lesion, non-operative. 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 Family helps get groceries. Does not use any DME at baseline. Still drives. Baseline Cognition: Oriented to self, Oriented to place, Oriented to time SUBJECTIVE Pt pleasant and agreeable to OT evaluation COGNITION Responsiveness: Awake, Alert Follows Commands: 2-step Commands, Cueing Needed Cueing to Follow Commands: Minimum Executive Function Deficits: Safety Awareness SLUMS Total Score ( /30): 12 (06/18/24) 4AT Score: 3 (06/12/24) Delirium Positive/Negative: Negative (06/12/24) THERAPY DIAGNOSIS Reduced mobility-other, Decreased activities of daily living (ADL), Muscle Weakness (generalized), General symptoms and signs-other TREATMENT INTERVENTIONS Self Penitentiary Management (69134), Cognitive Training (79014 and 44934) Timed Code Treatment (minutes): 24 Skilled Treatment Time (minutes): 24 Self Penitentiary Management (15276) Treatment Minutes: 11 $ Self Penitentiary Management (60251) Billed Units: 1 unit Minimal assist with meal set-up. Cueing for physical assist with maintaining functional grasp on packaging to tear open. Pt demonstrated impaired hand-eye coordination/visual spatial awareness with bringing food to mouth. Provided further cueing and tactile awareness/sequencing to maximize ease with self feeding. Cognitive Training First 15 Minutes (58164) : 13 $ Cognitive Training First 15 Minutes (54918) Billed Units: 1 unit Facilitated completion of [facility] Mental Examination (UMS) to screen performance with orientation, memory, attention, and executive functioning. The screen is scored out of 30 points with the cut off levels for dementia or mild cognitive impairment determined by highest level of education. A score of 25-30 (for individuals with below high school education) or 26-30 (for individuals with above high school education) indicates normal cognitive functioning. A score of 20-24 (for individuals with below high school education) or 21-26 (for individuals with above high school education) indicates mild cognitive impairment. A score of 1-19 (for individuals with below high school education) or 1-20 (for individuals with above high school education) indicates dementia. Based on results (07/16), patient demonstrates min deficits in orientation, mod/max deficits in short term memory, mod/max deficits in functional math, mod/max deficits in attention, mod/max deficits in visual-spatial skills, and mod/max deficits in working memory. TRAINING AND EDUCATION PROVIDED Assistive Device Use, Benefits of In-Hospital Mobility, Cognitive Stimulation Activities, Discharge Planning, Disease Specific Education, Role of Occupational Therapy, Safety/Judgment, Sitting Balance to Improve [place] with ADLs/Self-Care, Cognitive Skills, Command Following, Expected Functional Level, Feeding Tasks, Low Vision Strategies, Positioning, Visual Scanning/Attention Activities THERAPEUTIC SKILLS USED Activity Dosing, Cues for (more content not included)... Normal [facility] CBC panel Auto (Bld)on 06-17 Erythrocyte distribution width (RBC) [Ratio] 15.7 % High 11.5-15.0 [facility] Comment on above: Order Comment: Rhina mason Type: BLOOD SPECIMEN Ordering Facility: [facility] Address: [address] [place] [address] Performed By: #### 2 4321-2, 42673-5, #### [employer] [facility] CLIA [id number] [address] [place] [address] [place] Hematocrit (Bld) [Volume fraction] 35.1 % Low 36.0-46.0 [facility] Comment on above: Order Comment: Rhina mason Type: BLOOD SPECIMEN Ordering Facility: [facility] Address: [address] [place] [address] Performed By: #### 2 4321-2, 68463-8, #### [employer] [facility] CLIA [id number] [address] Hemoglobin (Bld) [Mass/Vol] 11.0 g/dL Low 11.5-15.5 [facility] Comment on above: Order Comment: Speci men Type: BLOOD SPECIMEN Ordering Facility: [facility] Address: [address] [place] [address] Performed By: #### 2 4321-2, 89821-7, #### [facility] CLIA [id number] [address] MCH (RBC) [Entitic mass] 26.4 pg Normal 26.0-34.0 [facility] Comment on above: Order Comment: Speci men Type: BLOOD SPECIMEN Ordering Facility: [facility] Address: [address] [place] [address] Performed By: #### 2 4321-2, 39428-4, #### [facility] CLIA [id number] [address] MCHC (RBC) [Mass/Vol] 31.3 g/dL Normal 30.5-36.0 [facility] Comment on above: Order Comment: Speci men Type: BLOOD SPECIMEN Ordering Facility: [facility] Address: [address] [place] [address] Performed By: #### 2 4321-2, 04097-3, #### [facility] CLIA [id number] [address] MCV (RBC) [Entitic vol] 84.4 fL Normal 80.0-100.0 [facility] Comment on above: Order Comment: Speci men Type: BLOOD SPECIMEN Ordering Facility: [facility] Address: [address] [place] [address] Performed By: #### 2 4321-2, 81810-7, #### [facility] CLIA [id number] [address] Nucleated RBC (Bld) [#/Vol] 10*3/uL Normal <0.01 [facility] Comment on above: Order Comment: Speci men Type: BLOOD SPECIMEN Ordering Facility: [facility] Address: [address] [place] [address] Performed By: #### 2 4321-2, 10510-3, #### [facility] CLIA [id number] [address] STATES OF [facility] Platelet mean volume (Bld) [Entitic vol] 10.1 fL Normal 9.0-12.7 [facility] Comment on above: Order Comment: Speci men Type: BLOOD SPECIMEN Ordering Facility: [facility] Address: [address] [place] [address] Performed By: #### 2 4321-2, 97478-4, #### [facility] CLIA [id number] [address] [place] Platelets (Bld) [#/Vol] 294 10*3/uL Normal 150-400 [facility] Comment on above: Order Comment: Speci men Type: BLOOD SPECIMEN Ordering Facility: [facility] Address: [address] [place] [address] Performed By: #### 2 4321-2, 43376-1, #### [facility] CLIA [id number] [address] [place] RBC (Bld) [#/Vol] 4.16 10*6/uL Normal 3.90-5.20 [facility] Comment on above: Order Comment: Speci men Type: BLOOD SPECIMEN Ordering Facility: [facility] Address: [address] [place] [address] Performed By: #### 2 4321-2, 14299-2, #### [facility] CLIA [id number] [address] [place] WBC (Bld) [#/Vol] 5.63 10*3/uL Normal 3.70-11.00 [facility] Comment on above: Order Comment: Speci men Type: BLOOD SPECIMEN Ordering Facility: [facility] Address: [address] [place] [address] Performed By: #### 2 4321-2, 21078-1, #### [facility] CLIA [id number] [address] CBC panel Auto (Bld)on 06-16 Erythrocyte distribution width (RBC) [Ratio] 15.4 % High 11.5-15.0 [facility] Comment on above: Order Comment: Speci men Type: BLOOD SPECIMEN Ordering Facility: [facility] Address: [address] [place] [address] Performed By: #### 2 4321-2, 12138-3, #### [employer] [facility] CLIA [id number] [address] STATES OF [facility] Hematocrit (Bld) [Volume fraction] 34.9 % Low 36.0-46.0 [facility] Comment on above: Order Comment: Speci men Type: BLOOD SPECIMEN Ordering Facility: [facility] Address: [address] [place] [address] Performed By: #### 2 4321-2, 62551-5, #### [facility] CLIA [id number] [address] [place] Hemoglobin (Bld) [Mass/Vol] 10.9 g/dL Low 11.5-15.5 [facility] Comment on above: Order Comment: Speci men Type: BLOOD SPECIMEN Ordering Facility: [facility] Address: [address] [place] [address] Performed By: #### 2 4321-2, 10853-1, #### [employer] CLIA [id number] [address] MCH (RBC) [Entitic mass] 26.4 pg Normal 26.0-34.0 [facility] Comment on above: Order Comment: Speci men Type: BLOOD SPECIMEN Ordering Facility: [facility] Address: [address], [place] [address] Performed By: #### 2 4321-2, 27270-3, #### [facility] CLIA [id number] [address] MCHC (RBC) [Mass/Vol] 31.2 g/dL Normal 30.5-36.0 [facility] Comment on above: Order Comment: Speci men Type: BLOOD SPECIMEN Ordering Facility: [facility] Address: [address] [place] [address] Performed By: #### 2 4321-2, 59620-7, #### [facility] CLIA [id number] [address] MCV (RBC) [Entitic vol] 84.5 fL Normal 80.0-100.0 [facility] Comment on above: Order Comment: Speci men Type: BLOOD SPECIMEN Ordering Facility: [facility] Address: [address] [place] [address] Performed By: #### 2 4321-2, 63556-3, #### [facility] CLIA [id number] [address] Nucleated RBC (Bld) [#/Vol] 10*3/uL Normal <0.01 [facility] Comment on above: Order Comment: Speci men Type: BLOOD SPECIMEN Ordering Facility: [facility] Address: [address] [place] [address] Performed By: #### 2 4321-2, 59024-5, #### [facility] CLIA [id number] [address] Platelet mean volume (Bld) [Entitic vol] 9.8 fL Normal 9.0-12.7 [facility] Comment on above: Order Comment: Speci men Type: BLOOD SPECIMEN Ordering Facility: [facility] Address: [address] [place] [address] Performed By: #### 2 4321-2, 08999-5, #### [facility] CLIA [id number] [address] OF [facility] Platelets (Bld) [#/Vol] 274 10*3/uL Normal 150-400 [facility] Comment on above: Order Comment: Speci men Type: BLOOD SPECIMEN Ordering Facility: [facility] Address: [address] [place] [address] Performed By: #### 2 4321-2, 80527-3, 60159-8 #### [facility] CLIA [id number] [address] RBC (Bld) [#/Vol] 4.13 10*6/uL Normal 3.90-5.20 [facility] Comment on above: Order Comment: Speci men Type: BLOOD SPECIMEN Ordering Facility: [facility] Address: [address] [place] [address] Performed By: #### 2 4321-2, 73845-6, #### [facility] CLIA [id number] [address] WBC (Bld) [#/Vol] 6.06 10*3/uL Normal 3.70-11.00 [facility] Comment on above: Order Comment: Speci men Type: BLOOD SPECIMEN Ordering Facility: [facility] Address: [address] [place] [address] Performed By: #### 2 4321-2, 94974-3, #### [facility] CLIA [id number] [address] OF [facility] CBC panel Auto (Bld)on 06-15 Erythrocyte distribution width (RBC) [Ratio] 15.4 % High 11.5-15.0 [facility] Comment on above: Order Comment: Speci men Type: BLOOD SPECIMEN Ordering Facility: [facility] Address: [address] [place] [address] Performed By: #### 2 4321-2, 99494-8, 40378-2 #### [facility] CLIA [id number] [address] [place] [address] [place] Hematocrit (Bld) [Volume fraction] 33.9 % Low 36.0-46.0 [facility] Comment on above: Order Comment: Speci men Type: BLOOD SPECIMEN Ordering Facility: [facility] Address: [address] [place] [address] Performed By: #### 2 4321-2, 59134-4, #### [facility] CLIA [id number] [address] [place] Hemoglobin (Bld) [Mass/Vol] 10.6 g/dL Low 11.5-15.5 [facility] Comment on above: Order Comment: Speci men Type: BLOOD SPECIMEN Ordering Facility: [facility] Address: [address] [place] [address] Performed By: #### 2 4321-2, 64913-3, #### [facility] CLIA [id number] [address] MCH (RBC) [Entitic mass] 26.2 pg Normal 26.0-34.0 [facility] Comment on above: Order Comment: Speci men Type: BLOOD SPECIMEN Ordering Facility: [facility] Address: [address] [place] [address] Performed By: #### 2 4321-2, 67842-0, #### [facility] CLIA [id number] [address] [place] MCHC (RBC) [Mass/Vol] 31.3 g/dL Normal 30.5-36.0 [facility] Comment on above: Order Comment: Speci men Type: BLOOD SPECIMEN Ordering Facility: [facility] Address: [address] [place] [address] Performed By: #### 2 4321-2, 23656-1, #### [facility] CLIA [id number] [address] OF [facility] MCV (RBC) [Entitic vol] 83.9 fL Normal 80.0-100.0 [facility] Comment on above: Order Comment: Speci men Type: BLOOD SPECIMEN Ordering Facility: [facility] Address: [address] [place] [address] Performed By: #### 2 4321-2, 92569-5, #### [facility] CLIA [id number] [address] [place] [address] [place] Nucleated RBC (Bld) [#/Vol] 10*3/uL Normal <0.01 [facility] Comment on above: Order Comment: Speci men Type: BLOOD SPECIMEN Ordering Facility: [facility] Address: [address] [place] [address] Performed By: #### 2 4321-2, 10492-5, #### [facility] CLIA [id number] [address] [place] Platelet mean volume (Bld) [Entitic vol] 9.9 fL Normal 9.0-12.7 [facility] Comment on above: Order Comment: Speci men Type: BLOOD SPECIMEN Ordering Facility: [facility] Address: [address] [place] [address] Performed By: #### 2 4321-2, 66992-1, #### [facility] CLIA [id number] [address] [place] Platelets (Bld) [#/Vol] 280 10*3/uL Normal 150-400 [facility] Comment on above: Order Comment: Speci men Type: BLOOD SPECIMEN Ordering Facility: [facility] Address: [address] [place] [address] Performed By: #### 2 4321-2, 35591-8, #### [facility] CLIA [id number] [address] [place] [address] [place] RBC (Bld) [#/Vol] 4.04 10*6/uL Normal 3.90-5.20 [facility] Comment on above: Order Comment: Speci men Type: BLOOD SPECIMEN Ordering Facility: [facility] Address: [address] [place] [address] Performed By: #### 2 4321-2, 30210-8, #### [facility] CLIA [id number] 1 [place] [address] [place] WBC (Bld) [#/Vol] 5.80 10*3/uL Normal 3.70-11.00 [facility] Comment on above: Order Comment: Speci men Type: BLOOD SPECIMEN Ordering Facility: [facility] Address: [facility] [place] [address] Performed By: #### 2 4321-2, 62214-4, #### [facility] CLIA [id number] [address] [place] [address] [facility] [place] THERAPY NTon 06-15-2024 THERAPY NT HNO ID: [id number] Author: MEHREEN MANCERA PT Service: Physical Therapy Author Type: Physical Therapist Type: Therapy (PT/OT/Speech/Resp) Filed: 06/15/2024 16:13 Note Text: Physical Therapy Treatment Summary SERVICE DATE: 06/15/2024 SERVICE TIME: 1518 to 1547 ROOM: [place] [address] PT 6 Clicks Score: 13 DISCHARGE RECOMMENDATIONS Acute Rehab Recommended Discharge Disposition Comments: Very unsteady and has poor perception of vertical mid line balance. Pt is a high risk of falls. Recommend Acute rehab at d/c ASSESSMENT Response to Therapy Interventions: Good Participation in Activities Patient continues to be very off balance with a high risk of falls. Recommend Acute rehab for stroke. Re-assessed positional testing (roll test that produced positional nystagmus on day of initial eval.). Unable to reproduce the torsional up-beating nystagmus observed on day of eval. PRECAUTIONS Bed/Chair Alarm, Fall Risk, Lines/Tubes/Drains CURRENT HOSPITAL COURSE Patient presents with acute onset of vertigo and nausea vomiting and weakness. 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 Also found to have hydronephrosis and L renal lesion, non-operative. 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 Family helps get groceries. Does not use any DME at baseline. Still drives. SUBJECTIVE Agreeable to PT. Reports continued dizziness. THERAPY DIAGNOSIS Ataxic gait, Unsteadiness on feet, Reduced mobility-other, Lack of coordination-other TREATMENT INTERVENTIONS Therapeutic Activity (82221), Neuromuscular Reeducation (92714) Timed Code Treatment (minutes): 29 Skilled Treatment Time (minutes): 29 Therapeutic Activity (25197) Treatment Minutes: 10 $ Therapeutic Activity (87994) Billed Units: 1 unit Neuromuscular Reeducation (75726) Treatment Minutes: 19 $ Neuromuscular Reeducation (84348) Billed Units: 1 unit Sitting balance and working on perception of vertical midline for balance. Patient senses that she is leaning to her L/falling L but she is actually leaning to her R in sitting. Gave patient outside cues and use of internal sensation of how much pressure she is feeling on her L and R buttocks. Patient did admit to feeling more pressure on the R buttock as a cue to which way actually leaning. Patient also used the bedside curtain to determine if she was sitting cori. Patient able to tell that she was actually leaning R and able to correct. These corrections has limited carryover as she was able to remain balanced with hands in her lap for ~1 min. However patient would startle easily and then return to the R lean and report perceiving she is falling L. Worked also with standing to walker. Patient stands with R hip very near R handle compared to L hip to L handle. Patient also startles very easily and has loss of bal. Working on weight shifts and then marching. Patient picks her feet up but then quickly puts it down due to fear of falling. Again feels as if falling L. Able to walk several steps using walker and assist noted. Patient with very short step length. Patient able to increase stride with instruct on using UEs and to balance longer on stance foot. TRAINING AND EDUCATION PROVIDED Anatomy and Impact on Deficits, Assistive Device Use, Bed Mobility, Benefits of In-Hospital Mobility, Discharge Planning, Disease Specific Education, Falls Prevention, Precautions/Restriction s, Role of Physical Therapy THERAPEUTIC SKILLS USED Activity Dosing, Cues for Sequencing/Proper Technique for Activity, Cuing Verbal, Movement Facilitation, Physical Assist, Vestibular Dysfunction Management FUNCTIONAL STATUS mobility performed during session in bold, other mobility completed during prior session and may no longer be correct or appropriate to complete. Bed Mobility Rolling: Independent Supine To Sit: Contact Guard Assistance, Additional Information CGA for trunk steadying support due to pt feels as if she's falling Sit to Supine: Minimal Assistance, Additional Information light assist to guide trunk to the bed due to pt feels as if she's falling Scooting: Contact Guard Assistance Transfers Sit To Stand: Moderate Assistance, Additional Information light assist to boost to standing; allowed pt to pull up from the walker with PT bracing walker, assist for balance Stand To Sit: Minimal Assistance, Additional Information assist to control (more content not included)... Normal [facility] CBC panel Auto (Bld)on 06-14 Erythrocyte distribution width (RBC) [Ratio] 15.5 % High 11.5-15.0 [facility] Comment on above: Order Comment: Speci men Type: BLOOD SPECIMENOrdering Facility: [facility] Address: [address] [place] [address] Performed By: #### 5 8410-2 ####[facility] LABORATORYCLIA [id number] [place] [address] [place] Hematocrit (Bld) [Volume fraction] 34.8 % Low 36.0-46.0 [facility] Comment on above: Order Comment: Speci men Type: BLOOD SPECIMENOrdering Facility: [facility] Address: [address] [place] [address] Performed By: #### 5 8410-2 ####[facility] LABORATORYCLIA [id number] [place] [address] [place] Hemoglobin (Bld) [Mass/Vol] 11.0 g/dL Low 11.5-15.5 [facility] Comment on above: Order Comment: Speci men Type: BLOOD SPECIMENOrdering Facility: [facility] Address: [address] [place] [address] Performed By: #### 5 8410-2 ####[facility] LABORATORYCLIA [id number] [address] MCH (RBC) [Entitic mass] 26.6 pg Normal 26.0-34.0 [facility] Comment on above: Order Comment: Speci men Type: BLOOD SPECIMENOrdering Facility: [facility] Address: [address] [place] [address] Performed By: #### 5 8410-2 ####[facility] LABORATORYCLIA [id number] [address] MCHC (RBC) [Mass/Vol] 31.6 g/dL Normal 30.5-36.0 [facility] Comment on above: Order Comment: Speci men Type: BLOOD SPECIMENOrdering Facility: [facility] Address: [address] [place] [address] Performed By: #### 5 8410-2 ####[facility] LABORATORYCLIA [id number] [address] MCV (RBC) [Entitic vol] 84.3 fL Normal 80.0-100.0 [facility] Comment on above: Order Comment: Speci men Type: BLOOD SPECIMENOrdering Facility: [facility] Address: [address] [place] [address] Performed By: #### 5 8410-2 ####[facility] LABORATORYCLIA [id number] [address] Nucleated RBC (Bld) [#/Vol] 10*3/uL Normal <0.01 [facility] Comment on above: Order Comment: Speci men Type: BLOOD SPECIMENOrdering Facility: [facility] Address: [address] [place] [address] Performed By: #### 5 8410-2 ####[facility] LABORATORYCLIA [id number] [address] Platelet mean volume (Bld) [Entitic vol] 9.7 fL Normal 9.0-12.7 [facility] Comment on above: Order Comment: Speci men Type: BLOOD SPECIMENOrdering Facility: [facility] Address: [address] [place] [address] Performed By: #### 5 8410-2 ####[facility] LABORATORYCLIA [id number] [address] [place] Platelets (Bld) [#/Vol] 278 10*3/uL Normal 150-400 [facility] Comment on above: Order Comment: Speci men Type: BLOOD SPECIMENOrdering Facility: [facility] Address: [address] [place] [address] Performed By: #### 5 8410-2 ####[facility] LABORATORYCLIA [id number] [address] [place] RBC (Bld) [#/Vol] 4.13 10*6/uL Normal 3.90-5.20 [facility] Comment on above: Order Comment: Speci men Type: BLOOD SPECIMENOrdering Facility: [facility] Address: [address] [place] [address] Performed By: #### 5 8410-2 ####[facility] LABORATORYCLIA [id number] [address] OF [facility] WBC (Bld) [#/Vol] 4.70 10*3/uL Normal 3.70-11.00 [facility] Comment on above: Order Comment: Speci men Type: BLOOD SPECIMENOrdering Facility: [facility] Address: [address] [place] [address] Performed By: #### 5 8410-2 ####[facility] LABORATORYCLIA [id number] [address] [place] NURSING PROGon 06-14-2024 NURSING PROG HNO ID: [id number] Author: JOSE JERNIGAN RN Service: Nursing Author Type: Registered Nurse Type: Nursing Progress Note Filed: 06/14/2024 12:52 Note Text: 1200 - Pt continues to complain of RUE pain / discomfort at the shoulder which is decreasing ROM and strength in RUE. Pt w/ hx rotator cuff repair, but states pain has started in hospital without any known injury. - Provider made aware - ordered XR and lidocaine patch Normal [facility] XR SHLDR >/=3V AP/JASON AP/OTH R RTon 06-14-2024 XR SHLDR >/=3V AP/JASON AP/OTHR RT * * *Final Report* * * DATE OF EXAM: Jun 14 2024 1:05PM AKX [id number] - XR SHLDR >/=3V AP/JASON AP/OTHR RT / PROCEDURE REASON: Arthritis * * * * Physician Interpretation * * * * EXAM:XR SHLDR >/=3V AP/JASON AP/OTHR RT HISTORY: Arthritis COMPARISON:None IMPRESSION:Intramedulla ry raad with proximal interlocking screw is traversing healed humeral mid diaphyseal fracture. Glenohumeral and acromioclavicular joints are maintained. There is no evidence of hardware loosening. There is diffuse osteopenia. Visualized portions of the right lung are clear. Manager Hris: PSCB Transcribe Date/Time: Jun 14 2024 1:33P Dictated by : DEV WELCH MD This examination was interpreted and the report reviewed and electronically signed by: DEV WELCH MD on Jun 14 2024 1:35PM EST [id number] Normal [facility] ALLIED HEALTHon 06-13-2024 ALLIED HEALTH HNO ID: [id number] Author: ALFRED DALEY Chaplain Service: ? Author Type: Unified Communications Engineer Type: Allied Health Filed: 06/13/2024 14:38 Note Text: SPIRITUAL CARE ASSESSMENT SERVICE DATE: 06/13/2024 SERVICE TIME: 11:53 Visit with: Patient Length of visit (minutes): 5 Amish / Spirituality: Pt did not Disc. Reason: ASSESSMENT Emotional Disposition: Neutral Relational Concerns: None Spiritual Concerns: None INTERVENTIONS Empowerment: Informed patient of spiritual care resources available Exploration: Explored emotional needs and resources Relationship Building: Provided hospitality and Provided silent and supportive presence Ritual: None / Not Applicable OUTCOMES Unknown outcome PLAN Will follow as circumstances allow COMMENTS: SIGNATURE: Chaplain Nanci PATIENT NAME: Mel Castillo DATE: June 13, 2024 TIME: 2:31 PM PAGER/CONTACT #: [phone] Normal [facility] Basic metabolic 2000 panelon 06-13-2024 Anion gap [Moles/Vol] 11 mmol/L Normal 8-15 [facility] Comment on above: Order Comment: Speci men Type: BLOOD SPECIMEN [facility] Address: [address] [place] [address] Performed By: #### 2 4321-2, 31307-7, #### [facility] CLIA [id number] [address] [place] [address] [place] Calcium [Mass/Vol] 8.9 mg/dL Normal 8.5-10.2 [facility] Comment on above: Order Comment: Speci men Type: BLOOD SPECIMEN [facility] Address: [address] [place] [address] Performed By: #### 2 4321-2, 36372-2, #### [facility] CLIA [id number] [address] [place] [address] [place] Chloride [Moles/Vol] 101 mmol/L Normal 98-107 [facility] Comment on above: Order Comment: Speci men Type: BLOOD SPECIMEN [facility] Address: [address] [place] [address] Performed By: #### 2 4321-2, 06049-2, #### [facility] CLIA [id number] [address] [place] [address] [place] CO2 [Moles/Vol] 24 mmol/L Normal 22-30 [facility] Comment on above: Order Comment: Speci men Type: BLOOD SPECIMEN [facility] Address: [address] [place] [address] Performed By: #### 2 4321-2, 37407-7, #### [facility] CLIA [id number] [address] [place] [address] [place] Creatinine [Mass/Vol] 1.04 mg/dL High 0.58-0.96 [facility] Comment on above: Order Comment: Speci men Type: BLOOD SPECIMEN [facility] Address: [address] [place] [address] Performed By: #### 2 4321-2, 96619-1, #### [facility] CLIA [id number] [address] [place] Creatinine and Glomerular filtration rate.predicted panel (S/P/Bld) 53 mL/min/1.73m??? Low >=60 [facility] Comment on above: Order Comment: Rhina mason Type: BLOOD SPECIMEN [facility] Address: [address] [place] [address] Result Comment: Isa mated Glomerular Filtration Rate (eGFR) is calculated using the 2020 CKD-EPI creatinine equation. This equation utilizes serum creatinine, sex, and age as parameters. The creatinine assay has traceable calibration to isotope dilution-mass spectrometry. Refer to KDIGO guidelines for clinical interpretation. In patients with unstable renal function, e.g. those with acute kidney injury, the eGFR may not accurately reflect actual GFR. Performed By: #### 2 4321-2, 77929-6, #### [facility] CLIA [id number] [address] [place] [address] [place] Glucose [Mass/Vol] 95 mg/dL Normal 74-99 [facility] Comment on above: Order Comment: Rhina mason Type: BLOOD SPECIMEN [facility] Address: [address] [place] [address] Result Comment: The [place] [employer] (ADA) provides guidance for cutoff values for fasting glucose and random glucose. The ADA defines fasting as no caloric intake for at least 8 hours. Fasting plasma glucose results between 100 to 125 mg/dL indicate increased risk for diabetes (prediabetes). Fasting plasma glucose results greater than or equal to 126 mg/dL meet the criteria for diagnosis of diabetes. In the absence of unequivocal hyperglycemia, results should be confirmed by repeat testing. In a patient with classic symptoms of hyperglycemia or hyperglycemic crisis, random plasma glucose results greater than or equal to 200 mg/dL meet the criteria for diagnosis of diabetes. Reference: Standards of Medical Care in Diabetes 2016, [place] [employer]. Diabetes Care. 2016.39(Suppl 1). Performed By: #### 2 4321-2, 44908-5, #### [facility] CLIA [id number] [address] [place] Potassium [Moles/Vol] 3.8 mmol/L Normal 3.7-5.1 [facility] Comment on above: Order Comment: Speci men Type: BLOOD SPECIMEN [facility] Address: [address] [place] [address] Performed By: #### 2 4321-2, 91654-2, #### [facility] CLIA [id number] [address] [place] Sodium [Moles/Vol] 136 mmol/L Normal 136-144 [facility] Comment on above: Order Comment: Speci men Type: BLOOD SPECIMEN [facility] Address: [address] [place] [address] Performed By: #### 2 4321-2, 28299-7, #### [facility] CLIA [id number] [address] [place] Urea nitrogen [Mass/Vol] 16 mg/dL Normal 7-21 [facility] Comment on above: Order Comment: Speci men Type: BLOOD SPECIMEN [facility] Address: [address] [place] [address] Performed By: #### 2 4321-2, 46059-3, #### [facility] CLIA [id number] [address] [place] CBC panel Auto (Bld)on 06-13 Erythrocyte distribution width (RBC) [Ratio] 15.5 % High 11.5-15.0 [facility] Comment on above: Order Comment: Speci men Type: BLOOD SPECIMENOrdering Facility: [facility] Address: [address] [place] [address] Performed By: #### 5 8410-2 ####[facility] LABORATORYCLIA [id number] [address] Hematocrit (Bld) [Volume fraction] 33.1 % Low 36.0-46.0 [facility] Comment on above: Order Comment: Speci men Type: BLOOD SPECIMENOrdering Facility: [facility] Address: [address] [place] [address] Performed By: #### 5 8410-2 ####[facility] LABORATORYCLIA [id number] [address] [place] Hemoglobin (Bld) [Mass/Vol] 10.2 g/dL Low 11.5-15.5 [facility] Comment on above: Order Comment: Speci men Type: BLOOD SPECIMENOrdering Facility: [facility] Address: [address] [place] [address] Performed By: #### 5 8410-2 ####[facility] LABORATORYCLIA [id number] [address] STATES OF [facility] MCH (RBC) [Entitic mass] 26.5 pg Normal 26.0-34.0 [facility] Comment on above: Order Comment: Speci men Type: BLOOD SPECIMENOrdering Facility: [facility] Address: [address] [place] [address] Performed By: #### 5 8410-2 ####[facility] LABORATORYCLIA [id number] [address] [place] MCHC (RBC) [Mass/Vol] 30.8 g/dL Normal 30.5-36.0 [facility] Comment on above: Order Comment: Speci men Type: BLOOD SPECIMENOrdering Facility: [facility] Address: [address] [place] [address] Performed By: #### 5 8410-2 ####[facility] LABORATORYCLIA [id number] [address] MCV (RBC) [Entitic vol] 86.0 fL Normal 80.0-100.0 [facility] Comment on above: Order Comment: Speci men Type: BLOOD SPECIMENOrdering Facility: [facility] Address: [address] [place] [address] Performed By: #### 5 8410-2 ####[facility] LABORATORYCLIA [id number] [address] [place] Nucleated RBC (Bld) [#/Vol] 10*3/uL Normal <0.01 [facility] Comment on above: Order Comment: Speci men Type: BLOOD SPECIMENOrdering Facility: [facility] Address: [address] [place] [address] Performed By: #### 5 8410-2 ####[facility] LABORATORYCLIA [id number] [address] [place] Platelet mean volume (Bld) [Entitic vol] 9.6 fL Normal 9.0-12.7 [facility] Comment on above: Order Comment: Speci men Type: BLOOD SPECIMENOrdering Facility: [facility] Address: [address] [place] [address] Performed By: #### 5 8410-2 ####[facility] LABORATORYCLIA [id number] [address] [place] Platelets (Bld) [#/Vol] 287 10*3/uL Normal 150-400 [facility] Comment on above: Order Comment: Speci men Type: BLOOD SPECIMENOrdering Facility: [facility] Address: [address] [place] [address] Performed By: #### 5 8410-2 ####[facility] LABORATORYCLIA [id number] [place] [address] [place] RBC (Bld) [#/Vol] 3.85 10*6/uL Low 3.90-5.20 [facility] Comment on above: Order Comment: Speci men Type: BLOOD SPECIMENOrdering Facility: [facility] Address: [address] [place] [address] Performed By: #### 5 8410-2 ####[facility] LABORATORYCLIA [id number] [address] [place] WBC (Bld) [#/Vol] 4.79 10*3/uL Normal 3.70-11.00 [facility] Comment on above: Order Comment: Speci men Type: BLOOD SPECIMENOrdering Facility: [facility] Address: [address] [place] [address] Performed By: #### 5 8410-2 ####[facility] LABORATORYCLIA [id number] [address] aPTT PPPon 06-13-2024 aPTT Coag (PPP) [Time] 51.3 s High 23.0-32.4 [facility] Comment on above: Order Comment: Speci men Type: BLOOD SPECIMEN [facility] Address: [address] [place] [address] Performed By: #### 2 4321-2, 04141-5, 32459-4 #### [facility] CLIA [id number] [address] aPTT Coag (PPP) [Time] 89.0 s High 23.0-32.4 [facility] Comment on above: Order Comment: Speci men Type: BLOOD SPECIMEN [facility] Address: [address] [place] [address] Performed By: #### 2 4321-2, 50048-5, #### [facility] CLIA [id number] [address] ALLIED HEALTHon 06-12-2024 ALLIED HEALTH HNO ID: [id number] Author: MONA SEVILLA RT(R) Service: Radiology Author Type: Technologist Type: Allied Health Filed: 06/12/2024 09:25 Note Text: Radiology Service Progress Note PATIENT NAME: Mel Castillo DATE OF SERVICE: June 12, 2024 TIME: 9:13 AM PATIENT IDENTITY VERIFICATION COMPLETED USING TWO (2) IDENTIFIERS: Name and Date of confirmed by patient verbally and Name and Date of confirmed by identification band. FALL SCREENING: Has the patient had 2 falls in the last year or 1 fall with injury or currently using an Ambulatory Assistive Device (Walker, Cane, Wheelchair, Crutches, etc.)? Inpatient: Screened on floor PATIENT GENDER DATA: Female. status: : No status: NO. PATIENT RELEVANT IMPLANT DATA REVIEWED: Not Applicable PATIENT PRESENTS WITH AN IMPLANTABLE OR ATTACHED DIRECTOR OF REVENUE CYCLE MANAGEMENT: No RADIOLOGY DEPARTMENT: CT; Exam(s) Completed: Brain PERIPHERAL IV DATA: Not applicable SIGNED BY: oMna Sevilla RT(R) June 12, 2024 9:13 AM Normal [facility] CBC W Auto Differential pane l (Bld)on 06-12-2024 Basophils (Bld) [#/Vol] 0.03 10*3/uL Normal <0.11 [facility] Comment on above: Order Comment: Speci men Type: BLOOD SPECIMEN [facility] Address: [address] [place] [address] Performed By: #### 2 4321-2, 22074-1, #### [facility] CLIA [id number] [address] [place] Basophils/100 WBC (Bld) 0.6 % Normal [facility] Comment on above: Order Comment: Speci men Type: BLOOD SPECIMEN [facility] Address: [address] [place] [address] Performed By: #### 2 1-2, 88317-3, #### [facility] CLIA [id number] [address] [place] Differential cell count method Nom (Bld) Auto Normal [facility] Comment on above: Order Comment: Speci men Type: BLOOD SPECIMEN [facility] Address: [address] [place] [address] Performed By: #### 2 4321-2, 73158-6, #### [facility] CLIA [id number] [address] [place] [address] [place] Eosinophils (Bld) [#/Vol] 0.05 10*3/uL Normal <0.46 [facility] Comment on above: Order Comment: Speci men Type: BLOOD SPECIMEN [facility] Address: [address] [place] [address] Performed By: #### 2 4321-2, 91843-3, #### [facility] CLIA [id number] [address] [place] Eosinophils/100 WBC (Bld) 1.0 % Normal [facility] Comment on above: Order Comment: Speci men Type: BLOOD SPECIMEN [facility] Address: [address] [place] [address] Performed By: #### 2 4321-2, 94792-9, #### [facility] CLIA [id number] [address] [place] Erythrocyte distribution width (RBC) [Ratio] 15.6 % High 11.5-15.0 [facility] Comment on above: Order Comment: Speci men Type: BLOOD SPECIMEN [facility] Address: [address] [place] [address] Performed By: #### 2 4321-2, 28146-7, #### [facility] CLIA [id number] [address] [place] Hematocrit (Bld) [Volume fraction] 34.6 % Low 36.0-46.0 [facility] Comment on above: Order Comment: Speci men Type: BLOOD SPECIMEN [facility] Address: [address] [place] [address] Performed By: #### 2 1-2, 19597-5, #### [facility] CLIA [id number] [address] [place] Hemoglobin (Bld) [Mass/Vol] 10.6 g/dL Low 11.5-15.5 [facility] Comment on above: Order Comment: Speci men Type: BLOOD SPECIMEN [facility] Address: [address] [place] [address] Performed By: #### 2 4321-2, 32332-8, #### [facility] CLIA [id number] [address] [place] Immature granulocytes (Bld) [#/Vol] 10*3/uL Normal <0.10 [facility] Comment on above: Order Comment: Speci men Type: BLOOD SPECIMEN [facility] Address: [address] [place] [address] Performed By: #### 2 4321-2, 44014-1, #### [facility] CLIA [id number] [address] Immature granulocytes/100 WBC (Bld) 0.2 % Normal [facility] Comment on above: Order Comment: Speci men Type: BLOOD SPECIMEN [facility] Address: [address] [place] [address] Performed By: #### 2 4321-2, 12952-6, #### [facility] CLIA [id number] [address] [place] Lymphocytes (Bld) [#/Vol] 1.65 10*3/uL Normal 1.00-4.00 [facility] Comment on above: Order Comment: Speci men Type: BLOOD SPECIMEN [facility] Address: [address] [place] [address] Performed By: #### 2 1-2, 13573-1, #### [facility] CLIA [id number] [address] Lymphocytes/100 WBC (Bld) 31.9 % Normal [facility] Comment on above: Order Comment: Speci men Type: BLOOD SPECIMEN [facility] Address: [address] [place] [address] Performed By: #### 2 4321-2, 66368-4, #### [facility] CLIA [id number] [address] [place] MCH (RBC) [Entitic mass] 26.2 pg Normal 26.0-34.0 [facility] Comment on above: Order Comment: Speci men Type: BLOOD SPECIMEN [facility] Address: [address] [place] [address] Performed By: #### 2 4321-2, 13802-3, #### [facility] CLIA [id number] [address] MCHC (RBC) [Mass/Vol] 30.6 g/dL Normal 30.5-36.0 [facility] Comment on above: Order Comment: Speci men Type: BLOOD SPECIMEN [facility] Address: [address] [place] [address] Performed By: #### 2 4321-2, 53554-5, #### [facility] CLIA [id number] [address] [place] MCV (RBC) [Entitic vol] 85.6 fL Normal 80.0-100.0 [facility] Comment on above: Order Comment: Speci men Type: BLOOD SPECIMEN [facility] Address: [address] [place] [address] Performed By: #### 2 4320-2, 57718-9, #### [facility] CLIA [id number] [address] OF [facility] Monocytes (Bld) [#/Vol] 0.46 10*3/uL Normal <0.87 [facility] Comment on above: Order Comment: Speci men Type: BLOOD SPECIMEN [facility] Address: [address] [place] [address] Performed By: #### 2 4321-2, 54886-3, #### [facility] CLIA [id number] [address] Monocytes/100 WBC (Bld) 8.9 % Normal A [facility] Comment on above: Order Comment: Speci men Type: BLOOD SPECIMEN [facility] Address: [address] [place] [address] Performed By: #### 2 4321-2, 62615-3, #### [facility] CLIA [id number] [address] [place] [address] [place] Neutrophils (Bld) [#/Vol] 2.97 10*3/uL Normal 1.45-7.50 [facility] Comment on above: Order Comment: Speci men Type: BLOOD SPECIMEN [facility] [facility] Address: [address] [place] [address] Performed By: #### 2 1-2, 58230-3, #### [facility] CLIA [id number] [address] [place] Neutrophils/100 WBC (Bld) 57.4 % Normal [facility] Comment on above: Order Comment: Speci men Type: BLOOD SPECIMEN Ordering Facility: [facility] Address: [address] [place] [address] Performed By: #### 2 4320-2, 27095-9, #### [facility] CLIA [id number] [address] [place] Nucleated RBC (Bld) [#/Vol] 10*3/uL Normal <0.01 [facility] Comment on above: Order Comment: Speci men Type: BLOOD SPECIMEN Ordering Facility: [facility] Address: [address] [place] [address] Performed By: #### 2 1-2, 40465-5, #### [facility] CLIA [id number] 1 [place] [address] [place] Nucleated RBC/100 WBC (Bld) [Ratio] 0.0 /100 WBC Normal [facility] Comment on above: Order Comment: Speci men Type: BLOOD SPECIMEN Ordering Facility: [facility] Address: [address] [place] [address] Performed By: #### 2 1-2, 41542-1, #### [facility] CLIA [id number] 1 [place] [address] [place] Platelet mean volume (Bld) [Entitic vol] 9.6 fL Normal 9.0-12.7 [facility] Comment on above: Order Comment: Speci men Type: BLOOD SPECIMEN Ordering Facility: [facility] Address: [address] [place] [address] Performed By: #### 2 4321-2, 82726-4, #### [facility] CLIA [id number] [address] Platelets (Bld) [#/Vol] 314 10*3/uL Normal 150-400 [facility] Comment on above: Order Comment: Speci men Type: BLOOD SPECIMEN Ordering Facility: [facility] Address: [address] [place] [address] Performed By: #### 2 4321-2, 91086-5, #### [facility] CLIA [id number] [address] RBC (Bld) [#/Vol] 4.04 10*6/uL Normal 3.90-5.20 [facility] Comment on above: Order Comment: Speci men Type: BLOOD SPECIMEN Ordering Facility: [facility] Address: [address] [place] [address] Performed By: #### 2 4321-2, 36728-5, #### [facility] CLIA [id number] [address] WBC (Bld) [#/Vol] 5.17 10*3/uL Normal 3.70-11.00 [facility] Comment on above: Order Comment: Speci men Type: BLOOD SPECIMEN Ordering Facility: [facility] Address: [address] [place] [address] Performed By: #### 2 4321-2, 33928-4, #### [facility] CLIA [id number] [address] CONSULTon 06-12-2024 CONSULT HNO ID: [id number] Author: MINA TALBERT MD Service: Cardiovascular Disease Author Type: Physician Type: Consults Filed: 06/12/2024 10:40 Note Text: CARDIOLOGY CONSULTATION- [facility] Patient Name: Mel Castillo : 1940 PRIMARY CARE PHYSICIAN: Jared Evans MD [address] [place] [id number] REFERRING PHYSICIAN No referring provider defined for this encounter. Chief Complaint Patient presents with: Nausea AND Vomiting: Sudden onset of n/v starting approx 5pm. Denies abd pain or diarrhea. Pt arriving from home, reporting general weakness after the vomiting History of Present Illness: Mel Castillo is a 83 year old female we are consulted to see to assess presumptive 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[facility] with history of prior stroke PAD COPD hypertension no diabetes. She quit smoking previously. She does not appear to be on a statin. Comes in taking warfarin. Previously on Eliquis but could not figure out why it was changed. History of DVT and reported IVC filter. Patient comes in with neurologic changes and dizziness. Found to have multiple sites of stroke on MRI but no large vessel cerebrovascular disease. Patient comes in mostly with severe dizziness. She has been taking her warfarin but again it did appear the to be low INR. She says when she was in the hospital a few months ago at [facility] she was taking her Eliquis and was found to have a thrombus in the leg: Unclear whether this was arterial or venous but at that point they thought she failed Eliquis per patient and that is why she was changed to warfarin. She denies any fevers or chills she has chronic dyspnea no chest pain or chest tightness no actual syncope. 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 PAST MEDICAL HISTORY Diagnosis Date Acute bacterial sialadenitis Chronic atrial fibrillation (HCC) GERD (gastroesophageal reflux disease) HTN (hypertension) Hypothyroidism PAST SURGICAL HISTORY Procedure Laterality Date DANDC, DIAG AND/OR THERAPEUTIC NASAL ENDOS,DIAG,UNI/ BILATERAL TOTAL ABDOM HYSTERECTOMY FAMILY HISTORY Problem Relation Age of Onset Lung Cancer Father Cancer Brother Social History Tobacco Use Smoking status: Every Day Current packs/day: 0.50 Average packs/day: 0.5 packs/day for 50.0 years (25.0 ttl pk-yrs) Types: Cigarettes Passive exposure: Never Smokeless tobacco: Never Substance Use Topics Alcohol use: Not Currently Comment: occ Drug use: Never Cardiac Risk Factors: ALLERGIES Allergen Reactions Percocet [Oxycodone* Itching Medications: Current Facility-Administered Medications Medication Dose Route Frequency Provider Last Rate Last Admin lisinopril 5 mg tab(s) (ZESTRIL) 5 mg ORAL DAILY Don Edwards DO 5 mg at 06/11/24 0920 metoprolol tartrate (short acting) 25 mg tab(s) (LOPRESSOR) 25 mg ORAL q 12 H Don Edwards DO 25 mg at 06/11/242133 pantoprazole DR 40 mg tab(s) (PROTONIX) 40 mg ORAL DAILY (6 AM) Don Edwards DO 40 mg at 06/11/24 09 NaCl 0.9% iv flush bag 20 mL INTRAVENOUS PRN Don Edwards DO atorvastatin 80 mg tab(s) (LIPITOR) 80 mg ORAL/FEEDING TUBE AT BEDTIME Don Edwards DO 80 mg at 06/11/242133 acetaminophen 650 mg tab(s) (TYLENOL) 650 mg ORAL/FEEDING TUBE q 4 H PRN Don Edwards DO sodium chloride 0.9 % (flush) 2-10 mL (BD POSIFLUSH) 2-10 mL INTRAVENOUS DIRECTED PRN Don Edwards DO And perflutren lipid microspheres 1.1 mg/mL 1.3 mL injection (DEFINITY) 1.3 mL INTRAVENOUS DIRECTED PRN Don Edwards DO ondansetron (PF) 4 mg injection (ZOFRAN) 4 mg INTRAVENOUS q 6 H PRN Don Edwards DO 4 mg at 06/11/24 194 heparin iv infusion 25,000 units in NaCl 0.45% 250 mL STROKE NOMOGRAM 0-3,000 Units/hr INTRAVENOUS CONTINUOUS Don Edwards DO 11 mL/hr at 06/12/24 0442 1,100 Units/hr at 06/12/24 0442 Review of Systems Constitutional: Positive for malaise/fatigue. Negative for chills, fever and weight loss. Eyes: Positive for blurred vision. Respiratory: Positive for shortness of breath. Negative for wheezing. Denies Chest Tightness Cardiovascular: Positive for palpitations. Gastrointestinal: Negative for abdominal pain, blood in stool and nausea. Genitourinary: Negative for hematuria. Musculoskeletal: Negative for falls. Neurological: Positive for dizziness and focal weakness. Negative for speech change and loss of consciousness. Denies syncope Endo/Heme/Allergies: Does not bruise/bleed easily. Physical Examination: Vitals:BP 167/71 Pulse 57 Temp (Src) 98.4 (Oral) Resp 18 Ht 5' 4" (1.63m) Wt 152 lb 8.9 oz (69.2kg) SpO2 92% BMI 26.17 kg/(m2). O2 Therapy: Room Air BP w/Orthostatic Vitals Date and Time Orthostatic BP Orthostatic Pulse (more content not included)... Normal [facility] CONSULT PROGon 06-12-2024 CONSULT PROG HNO ID: [id number] Author: NICOLAS TESFAYE APRN.APPLICATIONS PROJECT MANAGER Service: Neurology General Author Type: Nurse Practitioner Type: Consult Progress Note Filed: 06/12/2024 14:43 Note Text: NEURO STROKE CONSULT PROGRESS NOTE SERVICE DATE: 06/12/2024 SERVICE TIME: 0815 Subjective INTERVAL HISTORY: Resting in bed after CT brain this AM. Reports ongoing issues with Gait imbalances, dizziness, nausea, and poor PO intake. Discussed the MRI findings for acute stroke and the correlating neurologic symptoms. Answered questions regarding plan of care for continued anticoagulation and atorvastatin therapies. No further questions at this time. MEDICATIONS Current Facility-Administered Medications Medication Dose Route Frequency lisinopril 5 mg tab(s) (ZESTRIL) 5 mg ORAL DAILY pantoprazole DR 40 mg tab(s) (PROTONIX) 40 mg ORAL DAILY (6 AM) NaCl 0.9% iv flush bag 20 mL INTRAVENOUS PRN atorvastatin 80 mg tab(s) (LIPITOR) 80 mg ORAL/FEEDING TUBE AT BEDTIME acetaminophen 650 mg tab(s) (TYLENOL) 650 mg ORAL/FEEDING TUBE q 4 H PRN sodium chloride 0.9 % (flush) 2-10 mL (BD POSIFLUSH) 2-10 mL INTRAVENOUS DIRECTED PRN And perflutren lipid microspheres 1.1 mg/mL 1.3 mL injection (DEFINITY) 1.3 mL INTRAVENOUS DIRECTED PRN ondansetron (PF) 4 mg injection (ZOFRAN) 4 mg INTRAVENOUS q 6 H PRN heparin iv infusion 25,000 units in NaCl 0.45% 250 mL STROKE NOMOGRAM 0-3,000 Units/hr INTRAVENOUS CONTINUOUS metoprolol tartrate (short acting) 12.5 mg tab(s) (LOPRESSOR) 12.5 mg ORAL q 12 H Objective PHYSICAL EXAM Vital Signs: BP 113/80 Pulse (!) 56 Temp 36.9 ?C (98.5 ?F) (Oral) Resp 18 Ht 162.6 cm (5' 4") Wt 69.2 kg (152 lb 8.9 oz) SpO2 95% BMI 26.19 kg/m? GENERAL: Awake/easily arousable HEENT: Normocephalic/atraumati c, no lymphadenopathy RESPIRATORY: Normal respiratory effort. Clear to auscultation without rhonchi, rales, wheezing. CARDIOVASCULAR: S1,S2 irregular GI: Soft abdomen, nontender, nondistended without mass. No hepatosplenomegaly. Normal bowel sounds EXTREMITIES: No cyanosis, clubbing or edema. Good capillary refill. SKIN: Skin color pink. Dry NEUROLOGICAL: LOC: 0 - alert and responsive 0 LOC Questions: 0 - both correct 0 LOC Commands: 0 - both correct 0 Best Gaze: 0 - normal gaze 0 Visual: 0 - no visual loss 0 Facial Palsy: 0 - normal 0 Motor Left Arm: 0 - no drift 0 Motor Right Arm: 0 - no drift 0 Motor Left Le - no drift 0 Motor Right Le - no drift 0 Limb Ataxia: 0 - no ataxia (or aphasic, hemiplegic) 0 Sensory: 0 - normal 0 Best Language: 0 - normal 0 Dysarthria: 1 - mild-mod slurred 1 Extinction and Inattention: 0 - normal, none detected (or visual loss alone) 0 Daily NIHSS Score: 1 (06/12/24 0945 : Nicolas Tesfaye, SEBASTIAN.APPLICATIONS PROJECT MANAGER) 1 MENTAL STATUS: Alert, oriented to person, place and time and Follows commands CRANIAL NERVES: Left eye blind. Right Eye pupil is 3mm/brisk. Positive nystagmus MOTOR: No drift and Normal tone MOTOR STRENGTH: 4/5 all extremities SENSATION: Intact light touch COORDINATION: Finger-to- nose-finger intact bilaterally DATA: Diagnostic tests reviewed for today's visit: Lipids, HbA1c, Recent Labs 06/10/24 2330 CHOL 227* HDL 78 LDL 139* TG 49 HBA1C 5.8* Most recent labs and imaging results. MEDICAL EVENTS: No medical events have been recorded. STROKE 9 CARE AND PREVENTION CHECKLIST 1. Is the patient currently on an ANTITHROMBOTIC medication (Antiplatelet or Anticoagulant): Heparin gtt 2. Does the patient have known AFIB/FLUTTER: Chronic or Permanent atrial fibrillation Is the patient currently on anticoagulation: Yes 3. Is the patient on a STATIN: Atorvastatin 80 mg 4. Is the patient on VTE prophylaxis: Mechanical prophylaxis, Yes, therapeutic anticoagulation Pharmacological intervention type: Other - see comment (therapeutic anticoagulation) Mechanical intervention type: Intermittent compression stocking(s) 5. GLYCEMIC Control Medications: BG well controlled 6. Stroke BP Goals: <180/105 Stroke BP Control: BP well controlled 7. Stroke IVF/Nutrition: Diet 8. TEMPERATURE Control: Normothermic 9. 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 * Impression/Recommendati ons IMPRESSION Mel Hernandez (more content not included)... Normal [facility] CT BRAIN WO IVCONon 06-12-20 CT BRAIN WO IVCON * * *Final Report* * * DATE OF EXAM: Jun 12 2024 9:25AM [facility] 0504 - CT BRAIN WO IVCON / PROCEDURE REASON: Stroke, follow up * * * * Physician Interpretation * * * * EXAMINATION: CT BRAIN WO IVCON CLINICAL HISTORY: Stroke follow-up. TECHNIQUE: Serial axial images without IV contrast were obtained from the vertex to the foramen magnum. MQ: [id number]_3 CT Radiation dose: Integrated Dose-Length Product (DLP) for this visit = 736 mGy*cm CT Dose Reduction Employed: Automated exposure control(AEC) and iterative recon COMPARISON: MRI brain on 06/11/2024. RESULT: Acute change: Known acute infarcts within left hippocampal head and right cerebellum are better seen on MRI brain. No CT evidence of new large acute cortical infarct. Hemorrhage: No evidence of acute intracranial hemorrhage. ECASS hemorrhagic transformation score: Not Applicable Mass Lesion / Mass Effect: No significant midline shift. Chronic change: Patchy foci of low attenuation coefficient are present within the supratentorial white matter which is a nonspecific finding but likely represents moderate microvascular ischemia. Chronic left cerebellar infarct. Parenchyma: There is mild generalized volume loss. Ventricles: Ventricular enlargement concordant with the degree of parenchymal volume loss. Paranasal sinuses and skull base: The visualized paranasal sinuses are grossly clear. The skull base and imaged soft tissues are unremarkable. IMPRESSION: Known acute infarcts within left hippocampal head and right cerebellum are better seen on MRI brain. No CT evidence of new large acute cortical infarct. No CT evidence of acute intracranial hemorrhage. Chronic changes, as detailed above. Manager Hris: PSCB Transcribe Date/Time: Jun 12 2024 9:42A Dictated by : LYDIA EVANS MD This examination was interpreted and the report reviewed and electronically signed by: LYDIA EVANS MD on Jun 12 2024 9:47AM EST [id number] Normal [facility] Comprehensive metabolic 2000 panelon 06-12-2024 Albumin [Mass/Vol] 3.6 g/dL Low 3.9-4.9 [facility] Comment on above: Order Comment: Rhina mason Type: BLOOD SPECIMEN Ordering Facility: [facility] Address: [address] [place] [address] Performed By: #### 2 4321-2, 27341-0, 27536-1 #### [facility] CLIA [id number] 1 [place] [address] [place] [facility] ALP [Catalytic activity/Vol] 88 U/L Normal 34-123 [facility] Comment on above: Order Comment: Rhina mason Type: BLOOD SPECIMEN Ordering Facility: [facility] Address: [address] [place] [address] Performed By: #### 2 4321-2, 16318-5, #### [facility] CLIA [id number] 1 [place] [address] [place] ALT With P-5'-P [Catalytic activity/Vol] 6 U/L Low 7-38 [facility] Comment on above: Order Comment: Speci men Type: BLOOD SPECIMEN Ordering Facility: [facility] Address: [address] [place] [address] Performed By: #### 2 4321-2, 64933-2, #### [facility] CLIA [id number] [address] [place] Anion gap [Moles/Vol] 13 mmol/L Normal 8-15 [facility] Comment on above: Order Comment: Speci men Type: BLOOD SPECIMEN Ordering Facility: [facility] Address: [address] [place] [address] Performed By: #### 2 4320-2, 48033-6, #### [facility] CLIA [id number] [address] OF [facility] AST With P-5'-P [Catalytic activity/Vol] 9 U/L Low 13-35 [facility] Comment on above: Order Comment: Speci men Type: BLOOD SPECIMEN Ordering Facility: [facility] Address: [address] [place] [address] Performed By: #### 2 1-2, 22195-3, #### [facility] CLIA [id number] [address] [place] Bilirubin [Mass/Vol] 0.6 mg/dL Normal 0.2-1.3 [facility] Comment on above: Order Comment: Speci men Type: BLOOD SPECIMEN Ordering Facility: [facility] Address: [address] [place] [address] Performed By: #### 2 4321-2, 07220-0, #### [facility] CLIA [id number] [address] [place] Calcium [Mass/Vol] 9.2 mg/dL Normal 8.5-10.2 [facility] Comment on above: Order Comment: Speci men Type: BLOOD SPECIMEN Ordering Facility: [facility] Address: [address] [place] [address] Performed By: #### 2 4321-2, 86079-9, #### [facility] CLIA [id number] 1 [place] [address] [place] Chloride [Moles/Vol] 101 mmol/L Normal 98-107 [facility] Comment on above: Order Comment: Speci men Type: BLOOD SPECIMEN Ordering Facility: [facility] Address: [address] [place] [address] Performed By: #### 2 4321-2, 36580-2, #### [facility] CLIA [id number] [address] STATES OF [facility] CO2 [Moles/Vol] 23 mmol/L Normal 22-30 [facility] Comment on above: Order Comment: Speci men Type: BLOOD SPECIMEN Ordering Facility: [facility] Address: [address] [place] [address] Performed By: #### 2 4321-2, 57443-4, #### [facility] CLIA [id number] [address] [place] Creatinine [Mass/Vol] 1.02 mg/dL High 0.58-0.96 [facility] Comment on above: Order Comment: Speci men Type: BLOOD SPECIMEN Ordering Facility: [facility] Address: [address] [place] [address] Performed By: #### 2 4321-2, 99447-4, #### [facility] CLIA [id number] [address] Creatinine and Glomerular filtration rate.predicted panel (S/P/Bld) 54 mL/min/1.73m??? Low >=60 [facility] Comment on above: Order Comment: Speci men Type: BLOOD SPECIMEN Ordering Facility: [facility] Address: [address] [place] [address] Result Comment: Isa mated Glomerular Filtration Rate (eGFR) is calculated using the 2020 CKD-EPI creatinine equation. This equation utilizes serum creatinine, sex, and age as parameters. The creatinine assay has traceable calibration to isotope dilution-mass spectrometry. Refer to KDIGO guidelines for clinical interpretation. In patients with unstable renal function, e.g. those with acute kidney injury, the eGFR may not accurately reflect actual GFR. Performed By: #### 2 4321-2, 58295-8, #### [facility] CLIA [id number] [address] [place] [address] [place] Glucose [Mass/Vol] 109 mg/dL High 74-99 [facility] Comment on above: Order Comment: Rhina mason Type: BLOOD SPECIMEN Ordering Facility: [facility] Address: [address] [place] [address] Result Comment: The [place] [employer] (ADA) provides guidance for cutoff values for fasting glucose and random glucose. The ADA defines fasting as no caloric intake for at least 8 hours. Fasting plasma glucose results between 100 to 125 mg/dL indicate increased risk for diabetes (prediabetes). Fasting plasma glucose results greater than or equal to 126 mg/dL meet the criteria for diagnosis of diabetes. In the absence of unequivocal hyperglycemia, results should be confirmed by repeat testing. In a patient with classic symptoms of hyperglycemia or hyperglycemic crisis, random plasma glucose results greater than or equal to 200 mg/dL meet the criteria for diagnosis of diabetes. Reference: Standards of Medical Care in Diabetes 2016, [place] [employer]. Diabetes Care. 2016.39(Suppl 1). Performed By: #### 2 4321-2, 03298-8, #### [facility] CLIA [id number] [address] [place] [address] [place] Potassium [Moles/Vol] 4.0 mmol/L Normal 3.7-5.1 [facility] Comment on above: Order Comment: Rhina mason Type: BLOOD SPECIMEN Ordering Facility: [facility] Address: [address] [id number] Performed By: #### 2 4321-2, 90575-4, #### [facility] CLIA [id number] [address] [place] Protein [Mass/Vol] 6.4 g/dL Normal 6.3-8.0 [facility] Comment on above: Order Comment: Speci men Type: BLOOD SPECIMEN Ordering Facility: [facility] Address: [address] [place] [address] Performed By: #### 2 4321-2, 47775-4, #### [facility] CLIA [id number] [address] STATES OF [facility] Sodium [Moles/Vol] 137 mmol/L Normal 136-144 [facility] Comment on above: Order Comment: Speci men Type: BLOOD SPECIMEN Ordering Facility: [facility] Address: [address] [place] [address] Performed By: #### 2 1-2, 69807-4, #### [facility] CLIA [id number] [address] Urea nitrogen [Mass/Vol] 12 mg/dL Normal 7-21 [facility] Comment on above: Order Comment: Speci men Type: BLOOD SPECIMEN Ordering Facility: [facility] Address: [address] [place] [address] Performed By: #### 2 4321-2, 33359-4, #### [facility] CLIA [id number] [address] [place] Magnesium SerPl-mCncon 06-12 Magnesium [Mass/Vol] 2.3 mg/dL Normal 1.7-2.3 [facility] Comment on above: Order Comment: Speci men Type: BLOOD SPECIMEN Ordering Facility: [facility] Address: [address] [place] [address] Performed By: #### 2 4321-2, 80141-3, #### [facility] CLIA [id number] [address] OF [facility] NURSING PROGon 06-12-2024 NURSING PROG HNO ID: [id number] Author: ROBINSON VELÁSQUEZ, RN Service: ? Author Type: Registered Nurse Type: Nursing Progress Note Filed: 06/12/2024 16:25 Note Text: The previous RN did not choose the correct MAR action when changing the previous heparin dose at 055, therefore the nomogram will not calculate the correct rate/dose change. The current rate is 800 units/hr. Pharmacy called for dosage calculation. Per pharmacist Denia Dimas, after receiving aPTT result of 79, the current rate should be decreased to 700 units based off the calculation of 2units/kg/hr. Heparin is now running at 700 units/hr. Next PTT draw due at 1900 Normal [facility] PT EDon 06-12-2024 PT ED HNO ID: [id number] Author: DOT PETERSON RPh Service: Pharmacy Author Type: ? Type: Patient Education Filed: 06/12/2024 16:17 Note Text: Attestation signed by Dot Peterson RP at 06/12/2024 4:17 PM I have reviewed the documentation below and agree with the plan. A communication has been documented in the handoff tool for hopeful follow-up tomorrow. Dot Peterson, [facility] ANTICOAGULATION EDUCATION Patient Name: Mel Castillo Account #: Data Unavailable Admission Date: 06/10/2024 11:06 PM Date of Contact: June 12, 2024 Time of Contact: 3:45 PM Patient anticipated to be discharged on enoxaparin as injectable anticoagulation therapy. Anticoagulant history: Patient is transitioning to a new injectable anticoagulant. This patient was previously anticoagulated at home with warfarin and was subtherapeutic upon admission. History of DVT on Eliquis. Indication for oral anticoagulation: recurrent embolic strokes, atrial fibrillation/atrial flutter and stable coronary or peripheral artery disease (CAD/PAD) Anticoagulant education status: Attempted to provide anticoagulation patient education multiple times. Patient unable to participate in counseling session as patient was in care of others and/or sleeping. Anticoagulation education materials have been provided to patient's bedside, including enoxaparin injection instructions. Will attempt to follow-up at a later time to see if patient has any questions. Patient aware of copay. Nayana Rowan, Parks And Recreation Worker [facility] THERAPY NTon 06-12-2024 THERAPY NT HNO ID: [id number] Author: LATOYA LONG PT Service: Physical Therapy Author Type: Physical Therapist Type: Therapy (PT/OT/Speech/Resp) Filed: 06/12/2024 15:33 Note Text: Physical Therapy Treatment Summary SERVICE DATE: 06/12/2024 SERVICE TIME: 1445 to 1509 ROOM: [place] [address] PT 6 Clicks Score: 13 DISCHARGE RECOMMENDATIONS Acute Rehab Recommended Discharge Disposition Comments: Pt is highly unsteady. Limited by continued vertigo. She loses her balance easily. MRI brain + for acute cerebellar CVA. Pt has a high PLOF. ASSESSMENT Response to Therapy Interventions: Good Participation in Activities Pt is requiring increased assist with mobility since the initial PT eval yesterday. She is limited by persistent vertigo and is highly unsteady with sitting and worse with standing and ambulation attempts. DC recommendation updated to acute rehab upon DC. PRECAUTIONS Bed/Chair Alarm, Fall Risk, Lines/Tubes/Drains CURRENT HOSPITAL COURSE Patient presents with acute onset of vertigo and nausea vomiting and weakness. 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 Also found to have hydronephrosis and L renal lesion, non-operative. 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 Family helps get groceries. Does not use any DME at baseline. Still drives. SUBJECTIVE Agreeable to PT. Reports continued dizziness. THERAPY DIAGNOSIS Ataxic gait, Unsteadiness on feet, Reduced mobility-other, Lack of coordination-other TREATMENT INTERVENTIONS Therapeutic Activity (51417), Neuromuscular Reeducation (01516) Timed Code Treatment (minutes): 23 Skilled Treatment Time (minutes): 23 Therapeutic Activity (73720) Treatment Minutes: 10 $ Therapeutic Activity (65471) Billed Units: 1 unit Training and assist with bed mobility, transfers and taking steps in place and side steps along the EOB with the walker. Neuromuscular Reeducation (45330) Treatment Minutes: 13 $ Neuromuscular Reeducation (45086) Billed Units: 1 unit Instructed pt in upright/midline positioning with sitting and standing as she tends to lean slightly to the right. Right lean is worse with standing. Training and assist provided to attain midline positioning. Static sitting EOB, CGA-min A x 10 minutes. Static standing with moderate A, FWW x 2-3 minutes, R lateral lean. TRAINING AND EDUCATION PROVIDED Anatomy and Impact on Deficits, Assistive Device Use, Bed Mobility, Benefits of In-Hospital Mobility, Discharge Planning, Disease Specific Education, Falls Prevention, Precautions/Restriction s, Role of Physical Therapy THERAPEUTIC SKILLS USED Activity Dosing, Cues for Sequencing/Proper Technique for Activity, Cuing Verbal, Movement Facilitation, Physical Assist, Vestibular Dysfunction Management FUNCTIONAL STATUS Bed Mobility Rolling: Independent Supine To Sit: Contact Guard Assistance, Additional Information CGA for trunk steadying support due to pt feels as if she's falling Sit to Supine: Minimal Assistance, Additional Information light assist to guide trunk to the bed due to pt feels as if she's falling Scooting: Contact Guard Assistance Transfers Sit To Stand: Moderate Assistance, Additional Information light assist to boost to standing; allowed pt to pull up from the walker with PT bracing walker, assist for balance Stand To Sit: Minimal Assistance, Additional Information assist to control descent to sitting Bed to Chair Gait Moderate Assistance, Additional Information R lateral lean, becomes off-balance easily and quickly Gait Device: Wheeled Walker General Deviations/Observations : Jenni decreased, Loss of Balance, Wide base of support, Shuffling Gait, Step length decreased Gait Distance (feet): 4' x 2 Stairs BALANCE Static Sitting Balance: Fair (heavy reliance on UE support on the bed, easily becomes off-balance when she lifts one hand off the bed or when startled) Dynamic Sitting Balance: Poor Static Standing Balance: Poor Dynamic Standing Balance: Poor ACTIVITY TOLERANCE Sitting Activity: sitting EOB, CGA-min A for trunk balance Sitting Activity Tolerance (in minutes): 10 Standing Activity: static standing, marching in place, stepping along the EOB GOALS Transfer Sit to/from Stand with: Supervision Ambulate with: Supervision Distance: 100' Device: Wheeled Walker Goal: Pt will not have c/o vertigo or signs of nystagmus with position andrea (more content not included)... Normal [facility] THERAPY NT HNO ID: [id number] Author: SHANNAN SEGOVIA OTR/[place]on Service: Occupational Therapy Author Type: Occupational Therapist Type: Therapy (PT/OT/Speech/Resp) Filed: 06/12/2024 08:50 Note Text: Occupational Therapy Evaluation Summary SERVICE DATE: 06/12/2024 SERVICE TIME: 810 to 833 ROOM: [id number] OT 6 Clicks Score: 15 DISCHARGE RECOMMENDATIONS Acute Rehab Recommended Discharge Disposition Comments: Patient can tolerate 3 hours of therapy at d/c Recommended Discharge Disposition Due to: Patient requires active, intensive rehabilitation by multiple therapy disciplines. Anticipate the patient will tolerate 3 hours of therapy per day., ADL impairment ASSESSMENT Response to Therapy Interventions: Good Participation in Activities Patient presenting much different compared to PT evaluation yesterday. Today, patient was only able to sit EOB and had severe dizziness. Strong lean to the R side and when she moved any part of her body, she lost trunk control and needed max assistance to maintain upright and not fall over. Due to these new deficits patient unable to manage her ADLs and further OT services are warranted. PRECAUTIONS Bed/Chair Alarm, Fall Risk, Lines/Tubes/Drains CURRENT HOSPITAL COURSE Patient presents with acute onset of vertigo and nausea vomiting and weakness. 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 Also found to have hydronephrosis and L renal lesion, non-operative. 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 Family helps get groceries. Does not use any DME at baseline. Still drives. Baseline Cognition: Oriented to self, Oriented to place, Oriented to time SUBJECTIVE agreeable to session COGNITION Responsiveness: Alert Follows Commands: 2-step Commands Executive Function Deficits: Safety Awareness 4AT Score: 3 (06/12/24) Delirium Positive/Negative: Negative (06/12/24) THERAPY DIAGNOSIS Reduced mobility-other, Decreased activities of daily living (ADL), Muscle Weakness (generalized), General symptoms and signs-other TREATMENT INTERVENTIONS Evaluation, Therapeutic Activity (47353) Timed Code Treatment (minutes): 8 Skilled Treatment Time (minutes): 23 $ Evaluation - Moderate (10796) Billed Units: 1 unit Therapeutic Activity (24391) Treatment Minutes: 8 $ Therapeutic Activity (28308) Billed Units: 1 unit TRAINING AND EDUCATION PROVIDED Assistive Device Use, Bed Mobility, Benefits of In-Hospital Mobility, Cognitive Stimulation Activities, Discharge Planning, Disease Specific Education, Role of Occupational Therapy, Safety/Judgment, Sitting Balance to Improve [place] with ADLs/Self-Care THERAPEUTIC SKILLS USED Activity Dosing, Cues for Sequencing/Proper Technique for Activity, Cuing Tactile, Cuing Verbal, Cuing Visual, Physical Assist FUNCTIONAL STATUS Activities of Daily Living Assist Level Additional Information Feeding Set Up Grooming Set Up Bathing Upper Body Minimal Assistance Bathing Lower Body Maximal Assistance Dressing Upper Body Minimal Assistance Dressing Lower Body Maximal Assistance Toileting Maximal Assistance Mobility Assist Level Additional Information Bed Mobility Supine To Sit: Moderate Assistance Min direction to move each LE closer to the side of bed while engaging core in order to sit upright. Challenged patient to sit edge of bed for several minutes, moderate direction for good posture and body mechanics, as patient leans to the R side. Max cues for balance and stability, as when she would move or adjust herself at the side of the bed, her dizziness would get so bad that she would lose control of her sitting balance. Needed max assistance to maintain upright. Instructed patient on the benefit and value of receiving continued OT services at d/c to increased independence with self care and functional transfers. Sit To Supine: Moderate Assistance Sit to Stand Additional Information unable able to stand due to significant dizziness. Stand to Sit Bed to Chair Toilet/Commode Shower Functional Mobility STRENGTH Right Upper Extremity Strength Comments: 4-/5 Left Upper Extremity Strength Comments: 4-/5 ACTIVITY TOLERANCE Sitting Activity: sitting EOB Sitting Activity Tolerance (in minutes): 7 BALANCE Static Sitting Balance: Fair Dynamic Sitting Balance: Poor GOALS Grooming with: Set Up (sitting in chair) Upper Body Bathing with: Stand By (more content not included)... Normal [facility] aPTT PPPon 06-12-2024 aPTT Coag (PPP) [Time] 56.1 s High 23.0-32.4 [facility] Comment on above: Order Comment: Rhina men Type: BLOOD SPECIMEN Ordering Facility: [facility] Address: [address] [place] [address] Performed By: #### 2 4321-2, 39699-4, #### [facility] CLIA [id number] [address] aPTT Coag (PPP) [Time] 79.0 s High 23.0-32.4 [facility] Comment on above: Order Comment: Speci men Type: BLOOD SPECIMEN Ordering Facility: [facility] Address: [address] [place] [address] Performed By: #### 1 4979-9 #### [facility] CLIA [id number] [address] aPTT Coag (PPP) [Time] 123.9 s High 23.0-32.4 [facility] Comment on above: Order Comment: Samiri men Type: BLOOD SPECIMEN Ordering Facility: [facility] Address: [address] [place] [address] Performed By: #### 2 4321-2, 58009-0, #### [facility] CLIA [id number] [address] [place] [id number] [place] aPTT Coag (PPP) [Time] 117.3 s High 23.0-32.4 [facility] Comment on above: Order Comment: Speci men Type: BLOOD SPECIMEN Ordering Facility: [facility] Address: [address] [place] [address] Performed By: #### 2 4321-2, 24982-4, 23697-4 #### [facility] CLIA [id number] 1 [place] [address] [facility] 36on 06-11-2024 36 Normal [facility] ALLIED HEALTHon 06-11-2024 ALLIED HEALTH HNO ID: [id number] Author: FABIO KERR Tech Service: ? Author Type: Senior Net Developer Type: Allied Health Filed: 06/11/2024 14:16 Note Text: Radiology Service Progress Note PATIENT NAME: Mel Castillo DATE OF SERVICE: June 11, 2024 TIME: 2:15 PM PATIENT IDENTITY VERIFICATION COMPLETED USING TWO (2) IDENTIFIERS: Name and Date of confirmed by patient verbally and Name and Date of confirmed by identification band. FALL SCREENING: Has the patient had 2 falls in the last year or 1 fall with injury or currently using an Ambulatory Assistive Device (Walker, Cane, Wheelchair, Crutches, etc.)? Inpatient: Screened on floor PATIENT GENDER DATA: Female. status: : No status: NO. PATIENT RELEVANT IMPLANT DATA REVIEWED: Not Applicable PATIENT PRESENTS WITH AN IMPLANTABLE OR ATTACHED DIRECTOR OF REVENUE CYCLE MANAGEMENT: No RADIOLOGY DEPARTMENT: MR; Exam(s) Completed: Head: Routine Brain [place] MRA MRA Carotid PERIPHERAL IV DATA: Not applicable SIGNED BY: Anne Marie Carrillo June 11, 2024 2:15 PM Normal [facility] CBC W Auto Differential pane l (Bld)on 06-11-2024 Basophils (Bld) [#/Vol] 0.03 10*3/uL Normal <0.11 [facility] Comment on above: Order Comment: Speci men Type: BLOOD SPECIMEN Ordering Facility: [facility] Address: [address] [place] [address] Performed By: #### 2 4321-2, 84496-3, #### [facility] CLIA [id number] [address] Basophils/100 WBC (Bld) 0.4 % Normal [facility] Comment on above: Order Comment: Speci men Type: BLOOD SPECIMEN Ordering Facility: [facility] Address: [address] [place] [address] Performed By: #### 2 4321-2, 91847-9, #### [facility] CLIA [id number] [address] Differential cell count method Nom (Bld) Auto Normal [facility] Comment on above: Order Comment: Speci men Type: BLOOD SPECIMEN Ordering Facility: [facility] Address: [address] [place] [address] Performed By: #### 2 4320-2, 50620-9, #### [facility] CLIA [id number] [address] OF [facility] Eosinophils (Bld) [#/Vol] 10*3/uL Normal <0.46 [facility] Comment on above: Order Comment: Speci men Type: BLOOD SPECIMEN Ordering Facility: [facility] Address: [address] [place] [address] Performed By: #### 2 1-2, 60078-2, #### [facility] CLIA [id number] [address] Eosinophils/100 WBC (Bld) 0.3 % Normal [facility] Comment on above: Order Comment: Speci men Type: BLOOD SPECIMEN Ordering Facility: [facility] Address: [address] [place] [address] Performed By: #### 2 4321-2, 63878-7, #### [facility] CLIA [id number] [address] [place] Erythrocyte distribution width (RBC) [Ratio] 15.6 % High 11.5-15.0 [facility] Comment on above: Order Comment: Speci men Type: BLOOD SPECIMEN Ordering Facility: [facility] Address: [address] [place] [address] Performed By: #### 2 1-2, 92742-3, #### [facility] CLIA [id number] [address] [place] Hematocrit (Bld) [Volume fraction] 37.6 % Normal 36.0-46.0 [facility] Comment on above: Order Comment: Speci men Type: BLOOD SPECIMEN Ordering Facility: [facility] Address: [address] [place] [address] Performed By: #### 2 4321-2, 65204-7, #### [facility] CLIA [id number] [address] [place] [address] [place] Hemoglobin (Bld) [Mass/Vol] 11.5 g/dL Normal 11.5-15.5 [facility] Comment on above: Order Comment: Speci men Type: BLOOD SPECIMEN Ordering Facility: [facility] Address: [address] [place] [address] Performed By: #### 2 1-2, 40219-0, #### [facility] CLIA [id number] [address] [place] Immature granulocytes (Bld) [#/Vol] 0.03 10*3/uL Normal <0.10 [facility] Comment on above: Order Comment: Speci men Type: BLOOD SPECIMEN Ordering Facility: [facility] Address: [address] [place] [address] Performed By: #### 2 1-2, 83115-0, #### [facility] CLIA [id number] [address] [place] Immature granulocytes/100 WBC (Bld) 0.4 % Normal [facility] Comment on above: Order Comment: Speci men Type: BLOOD SPECIMEN Ordering Facility: [facility] Address: [address] [place] [address] Performed By: #### 2 4321-2, 38295-5, #### [facility] CLIA [id number] [address] OF [facility] Lymphocytes (Bld) [#/Vol] 1.26 10*3/uL Normal 1.00-4.00 [facility] Comment on above: Order Comment: Speci men Type: BLOOD SPECIMEN Ordering Facility: [facility] Address: [facility] [place] [address] Performed By: #### 2 4321-2, 54775-8, #### [facility] CLIA [id number] [address] Lymphocytes/100 WBC (Bld) 16.9 % Normal [facility] Comment on above: Order Comment: Speci men Type: BLOOD SPECIMEN Ordering Facility: [facility] Address: [address] [place] [address] Performed By: #### 2 1-2, 67517-4, #### [facility] CLIA [id number] [address] [place] [facility] MCH (RBC) [Entitic mass] 26.6 pg Normal 26.0-34.0 [facility] Comment on above: Order Comment: Speci men Type: BLOOD SPECIMEN Ordering Facility: [facility] Address: [address] [place] [address] Performed By: #### 2 4321-2, 84525-8, #### [facility] CLIA [id number] [address] [place] MCHC (RBC) [Mass/Vol] 30.6 g/dL Normal 30.5-36.0 [facility] Comment on above: Order Comment: Speci men Type: BLOOD SPECIMEN Ordering Facility: [facility] Address: [address] [place] [address] Performed By: #### 2 4321-2, 40924-6, #### [facility] CLIA [id number] [address] [place] [address] [place] MCV (RBC) [Entitic vol] 87.0 fL Normal 80.0-100.0 [facility] Comment on above: Order Comment: Speci men Type: BLOOD SPECIMEN Ordering Facility: [facility] Address: [address] [place] [address] Performed By: #### 2 4321-2, 67408-6, #### [facility] CLIA [id number] [address] [place] Monocytes (Bld) [#/Vol] 0.68 10*3/uL Normal <0.87 [facility] Comment on above: Order Comment: Speci men Type: BLOOD SPECIMEN Ordering Facility: [facility] Address: [address] [place] [address] Performed By: #### 2 4321-2, 32901-4, #### [facility] CLIA [id number] [address] OF [facility] Monocytes/100 WBC (Bld) 9.1 % Normal [facility] Comment on above: Order Comment: Speci men Type: BLOOD SPECIMEN Ordering Facility: [facility] Address: [address] [place] [address] Performed By: #### 2 4321-2, 15083-5, #### [facility] CLIA [id number] [address] [place] [address] [place] Neutrophils (Bld) [#/Vol] 5.43 10*3/uL Normal 1.45-7.50 [facility] Comment on above: Order Comment: Speci men Type: BLOOD SPECIMEN Ordering Facility: [facility] Address: [address] [place] [address] Performed By: #### 2 4321-2, 77550-9, #### [facility] CLIA [id number] [address] [place] Neutrophils/100 WBC (Bld) 72.9 % Normal [facility] Comment on above: Order Comment: Speci men Type: BLOOD SPECIMEN Ordering Facility: [facility] Address: [address] [place] [address] Performed By: #### 2 4321-2, 53064-5, #### [facility] CLIA [id number] [address] [place] Nucleated RBC (Bld) [#/Vol] 10*3/uL Normal <0.01 [facility] Comment on above: Order Comment: Speci men Type: BLOOD SPECIMEN Ordering Facility: [facility] Address: [address] [place] [address] Performed By: #### 2 4321-2, 47304-3, #### [facility] CLIA [id number] [address] [place] Nucleated RBC/100 WBC (Bld) [Ratio] 0.0 /100 WBC Normal [facility] Comment on above: Order Comment: Speci men Type: BLOOD SPECIMEN Ordering Facility: [facility] Address: [address] [place] [address] Performed By: #### 2 1-2, 23878-4, #### [facility] CLIA [id number] [address] [place] Platelet mean volume (Bld) [Entitic vol] 9.5 fL Normal 9.0-12.7 [facility] Comment on above: Order Comment: Speci men Type: BLOOD SPECIMEN Ordering Facility: [facility] Address: [address] [place] [address] Performed By: #### 2 4321-2, 72009-2, #### [facility] CLIA [id number] [address] [place] [address] [place] Platelets (Bld) [#/Vol] 329 10*3/uL Normal 150-400 [facility] Comment on above: Order Comment: Speci men Type: BLOOD SPECIMEN Ordering Facility: [facility] Address: [address] [place] [address] Performed By: #### 2 4321-2, 13638-2, 97601-1 #### [facility] CLIA [id number] [address] [place] RBC (Bld) [#/Vol] 4.32 10*6/uL Normal 3.90-5.20 [facility] Comment on above: Order Comment: Speci men Type: BLOOD SPECIMEN Ordering Facility: [facility] Address: [address] [place] [address] Performed By: #### 2 4321-2, 53719-3, #### [facility] CLIA [id number] [address] WBC (Bld) [#/Vol] 7.45 10*3/uL Normal 3.70-11.00 [facility] Comment on above: Order Comment: Speci men Type: BLOOD SPECIMEN Ordering Facility: [facility] Address: [address] [place] [address] Performed By: #### 2 4321-2, 32598-7, #### [facility] CLIA [id number] [address] CONSULTon 06-11-2024 CONSULT HNO ID: [id number] Author: JENNY WALLACE MD Service: Neurology General Author Type: Physician Type: Consults Filed: 06/11/2024 10:27 Note Text: NEURO STROKE INITIAL CONSULT SERVICE DATE: 06/11/2024 SERVICE TIME: 8 AM REQUESTING PHYSICIAN: Don Oliver PCP: Jared Evans MD, MD REASON FOR STROKE EVALUATION: R/O stroke Subjective HPI: Patient is a 83-year-old female with PMH of HTN, Afib on warfarin,hypothyroidism presenting to the emergency department for sudden onset nausea, vomiting and dizziness around 5 PM this evening. Patient states that she began having nausea and dizziness tonight and then had 5 episodes of nonbloody, nonbilious vomiting. She denies any fevers, chills, chest pain, shortness of breath, abdominal pain, diarrhea, dysuria or hematuria. Patient states she is never had this happen her before. She denies any recent head trauma. States that she feels so dizzy and weak that she cannot ambulate. Pre-admission Pre-morbid mRS: Premorbid Modified [place] Score: 0 - No symptoms at all PAST MEDICAL HISTORY Diagnosis Date Acute bacterial sialadenitis Chronic atrial fibrillation (HCC) GERD (gastroesophageal reflux disease) HTN (hypertension) Hypothyroidism PAST SURGICAL HISTORY Procedure Laterality Date DANDC, DIAG AND/OR THERAPEUTIC NASAL ENDOS,DIAG,UNI/ BILATERAL TOTAL ABDOM HYSTERECTOMY Social History Tobacco Use Smoking status: Every Day Current packs/day: 0.50 Average packs/day: 0.5 packs/day for 50.0 years (25.0 ttl pk-yrs) Types: Cigarettes Passive exposure: Never Smokeless tobacco: Never Substance Use Topics Alcohol use: Not Currently Comment: occ Drug use: Never FAMILY HISTORY Problem Relation Age of Onset Lung Cancer Father Cancer Brother ALLERGIES Allergen Reactions Percocet [Oxycodone* Itching MEDICATION Pre-admission warfarin (COUMADIN) 5 mg tablet, Take 5 mg by mouth daily as directed., Disp: , Rfl: pantoprazole DR (PROTONIX) 40 mg tablet, Take 1 tablet by mouth twice daily before meals (0600/1600)., Disp: 60 tablet, Rfl: 0, 06/10/2024 ascorbic acid, vitamin C, (VITAMIN C) 500 mg tablet, Take 1 tablet by mouth three times daily., Disp: 90 tablet, Rfl: 0, 06/10/2024 metoprolol tartrate, short acting, (LOPRESSOR) 25 mg tablet, Take 1 tablet by mouth every 12 hours., Disp: 60 tablet, Rfl: 0, 06/10/2024 lisinopril (ZESTRIL, PRINIVIL) 5 mg tablet, Take 1 tablet by mouth once daily., Disp: 30 tablet, Rfl: 0, 06/10/2024 acetaminophen (TYLENOL) 325 mg tablet, Take 2 tablets by mouth every 6 hours as needed for pain., Disp: , Rfl: , Unknown zinc oxide 20 % ointment, Apply to affected area as needed., Disp: , Rfl: zinc oxide 20 % ointment, Apply to affected area twice daily., Disp: , Rfl: lactobacillus rhamnosus (CULTURELLE) 10 billion cell capsule, Take 1 capsule by mouth once daily., Disp: 30 capsule, Rfl: 0 apixaban (ELIQUIS) 5 mg (74 tabs), Take 2 tablets (10 mg) by mouth twice daily for 7 days. Then take 1 tablet (5 mg) by mouth twice daily for 23 days, Disp: 74 tablet, Rfl: 0, Unknown lisinopril (ZESTRIL, PRINIVIL) 5 mg tablet, Take 5 mg by mouth once daily., Disp: , Rfl: Current warfarin (COUMADIN) 5 mg tabletTake 5 mg by mouth daily as directed.Disp: Rfl: pantoprazole DR (PROTONIX) 40 mg tabletTake 1 tablet by mouth twice daily before meals (0600/1600).Disp: 60 tabletRfl: 0 ascorbic acid, vitamin C, (VITAMIN C) 500 mg tabletTake 1 tablet by mouth three times daily.Disp: 90 tabletRfl: 0 metoprolol tartrate, short acting, (LOPRESSOR) 25 mg tabletTake 1 tablet by mouth every 12 hours.Disp: 60 tabletRfl: 0 lisinopril (ZESTRIL, PRINIVIL) 5 mg tabletTake 1 tablet by mouth once daily.Disp: 30 tabletRfl: 0 acetaminophen (TYLENOL) 325 mg tabletTake 2 tablets by mouth every 6 hours as needed for pain.Disp: Rfl: zinc oxide 20 % ointmentApply to affected area as needed.Disp: Rfl: zinc oxide 20 % ointmentApply to affected area twice daily.Disp: Rfl: lactobacillus rhamnosus (CULTURELLE) 10 billion cell capsuleTake 1 capsule by mouth once daily.Disp: 30 capsuleRfl: 0 apixaban (ELIQUIS) 5 mg (74 tabs)Take 2 tablets (10 mg) by mouth twice daily for 7 days. Then take 1 tablet (5 mg) by mouth twice daily for 23 daysDisp: 74 tabletRfl: 0 lisinopril (ZESTRIL, PRINIVIL) 5 mg tabletTake 5 mg by mouth once daily.Disp: Rfl: REVIEW OF SYSTEMS The following systems were reviewed with the patient, and are unremarkable other than as described below. SYSTEMIC: No fever, chills, or change in weight or appetite HEENT: No recent change in vision or hearing. : No recent hematuria or dysuria. SKIN: No recent itching or eruption. PSYCH: No recent active anxiety or depression. HEMATOLOGY/ONCOLOGY: No recent diagnosis of bleeding or cancer. ENDOCRINE: No recent diagnosis of DM or thyroid disease. RHEUMATOLOGY: No recent active connective tissue disease. Objective PHYSICAL EXAM Vital Signs: (more content not included)... Normal [facility] CONSULT HNO ID: [id number] Author: TOÑO MANZO MD Service: Urology Author Type: Physician Type: Consults Filed: 06/12/2024 10:19 Note Text: Urology Consult 06/10/2024 HISTORY OF PRESENT ILLNESS: The patient is a 83 year old female with past medical history as listed below. Pt admitted for n/v/weakness. Urology consulted for new bilateral hydronephrosis and new indeterminate L renal lesion seen on CT. Upon evaluation, pt denies any issues urinating in the past - no dysuria, hematuria. She has never seen a urologist. She currently has an external catheter draining clear yellow urine. No flank pain, no suprapubic tenderness reported. On evaluation, they are AF and HDS. PAST MEDICAL HISTORY: PAST MEDICAL HISTORY Diagnosis Date Acute bacterial sialadenitis Chronic atrial fibrillation (HCC) GERD (gastroesophageal reflux disease) HTN (hypertension) Hypothyroidism PAST SURGICAL HISTORY: PAST SURGICAL HISTORY Procedure Laterality Date DANDC, DIAG AND/OR THERAPEUTIC NASAL ENDOS,DIAG,UNI/ BILATERAL TOTAL ABDOM HYSTERECTOMY ALLERGIES: ALLERGIES Allergen Reactions Percocet [Oxycodone* Itching HOME MEDICATIONS: warfarin (COUMADIN) 5 mg tablet, Take 5 mg by mouth daily as directed., Disp: , Rfl: pantoprazole DR (PROTONIX) 40 mg tablet, Take 1 tablet by mouth twice daily before meals (0600/1600)., Disp: 60 tablet, Rfl: 0, 06/10/2024 ascorbic acid, vitamin C, (VITAMIN C) 500 mg tablet, Take 1 tablet by mouth three times daily., Disp: 90 tablet, Rfl: 0, 06/10/2024 metoprolol tartrate, short acting, (LOPRESSOR) 25 mg tablet, Take 1 tablet by mouth every 12 hours., Disp: 60 tablet, Rfl: 0, 06/10/2024 lisinopril (ZESTRIL, PRINIVIL) 5 mg tablet, Take 1 tablet by mouth once daily., Disp: 30 tablet, Rfl: 0, 06/10/2024 acetaminophen (TYLENOL) 325 mg tablet, Take 2 tablets by mouth every 6 hours as needed for pain., Disp: , Rfl: , Unknown zinc oxide 20 % ointment, Apply to affected area as needed., Disp: , Rfl: zinc oxide 20 % ointment, Apply to affected area twice daily., Disp: , Rfl: lactobacillus rhamnosus (CULTURELLE) 10 billion cell capsule, Take 1 capsule by mouth once daily., Disp: 30 capsule, Rfl: 0 apixaban (ELIQUIS) 5 mg (74 tabs), Take 2 tablets (10 mg) by mouth twice daily for 7 days. Then take 1 tablet (5 mg) by mouth twice daily for 23 days, Disp: 74 tablet, Rfl: 0, Unknown lisinopril (ZESTRIL, PRINIVIL) 5 mg tablet, Take 5 mg by mouth once daily., Disp: , Rfl: FAMILY HISTORY: Family History Problem Relation Age of Onset Lung Cancer Father Cancer Brother Social History: Tobacco Use: 0.5 packs/day, for 50 years. Types: Cigarettes Alcohol Use: Not Currently (occ) PHYSICAL EXAM: VITALS: 06/11/24 0632 06/11/24 0643 06/11/24 0740 06/11/24 0919 BP: 130/78 173/82 160/77 Pulse: 86 70 76 Resp: 20 18 Temp: 36.4 ?C (97.6 ?F) 36.5 ?C (97.7 ?F) 36.7 ?C (98 ?F) TempSrc: Oral Oral Oral SpO2: 94% 99% 95% Weight: 69.2 kg (152 lb 8.9 oz) Height: 162.6 cm (5' 4") General: Alert, in no acute distress : no flank pain, no SP tenderness/fullness, external catheter draining clear yellow urine The sensitive examination was discussed with the Patient or Patient's Authorized Engine Test Cell Technician. As applicable, any other physician, advance practice provider, medical student, or other health professional student that will be observing or involved in the sensitive examination for educational or training purposes was discussed with the Patient or Authorized Engine Test Cell Technician. The Patient or Authorized Engine Test Cell Technician has agreed to proceed with the sensitive examination. (Sensitive examination includes inspection and/or palpation of the breasts, pelvis, prostate and anorectal regions) DATA: LABS: BMP: . Glucose (mg/dL) Date Value 06/10/2024 157 04/23/2007 81 Potassium (mmol/L) Date Value 06/10/2024 4.3 04/23/2007 4.5 Sodium (mmol/L) Date Value 06/10/2024 136 04/23/2007 128 Chloride (mmol/L) Date Value 06/10/2024 101 04/23/2007 92 CO2 (mmol/L) Date Value 06/10/2024 23 04/23/2007 22 Creatinine (mg/dL) Date Value 06/10/2024 0.87 04/23/2007 1.1 BUN (mg/dL) Date Value 06/10/2024 14 04/23/2007 34 Anion Gap (mmol/L) Date Value 06/10/2024 12 04/23/2007 14 Calcium (mg/dL) Date Value 04/23/2007 9.3 Calcium, Total (mg/dL) Date Value 06/10/2024 9.5 CBC: Hemoglobin (g/dL) Date Value 06/10/2024 11.4 04/23/2007 14.2 Hematocrit (%) Date Value 06/10/2024 37.5 04/23/2007 42.5 WBC (k/uL) Date Value 06/10/2024 5.67 04/23/2007 11.79 Platelet Count Date Value 06/10/2024 330 k/uL 04/23/2007 392 K/uL RADIOLOGY: CT ABD/PEL W IVCON Final Result IMPRESSION: 1. Mild bilateral hydroureteronephrosis to the pelvic brim without evidence of ureterolithiasis. 2. Indeterminate left renal lesion. Consider follow-up renal CT/MR for characterization. Manager Hris: DEVEN Chaudhry (more content not included)... Normal [facility] CONSULT PROGon 06-11-2024 CONSULT PROG HNO ID: [id number] Author: CARL PERSAUD RPh Service: Pharmacy Author Type: Pharmacist Type: Consult Progress Note Filed: 06/11/2024 13:52 Note Text: PHARMACY ANTICOAGULATION CONSULT Patient Name:Binu Castillo Admission Date: 06/10/2024 Date: 06/11/2024 Time: 1:51 PM Consult for warfarin dosing per pharmacy has been discontinued. Pharmacy will sign off. Please place order for warfarin dosing per pharmacy" if pharmacy is to resume warfarin dosing. Thank you for allowing us to participate in the care of this patient. Carl Persaud RPh [facility] CONSULT PROG HNO ID: [id number] Author: CARL PERSAUD RPh Service: Pharmacy Author Type: Pharmacist Type: Consult Progress Note Filed: 06/11/2024 09:14 Note Text: PHARMACY ANTICOAGULATION CONSULT PATIENT NAME: Mel Castillo DATE of SERVICE: 06/11/2024 TIME of SERVICE: 9:01 AM Indication for Anticoagulation: A fib Goal INR: 2.0 to 3.0 Expected Duration of Therapy: Indefinite Assessment: New Start: No Home Dose: warfarin 5 mg daily. Patient reports she took her dose at 1700 prior to admission on 06/10/24. Patient was being managed by [facility] but was recently released due to insurance denial, she is going to follow up with her PCP for INR management. Other Anticoagulants: None Dosing Considerations/Precauti ons: High fall risk Drug Interactions:None Evidence of side effects?: No Date INR Dose 06/01/24 1.3 5 mg (planned) Plan: Patient is currently subtherapeutic. Based on the dosing algorithm approved by the hospital Pharmacy and Therapeutics Committee, the following order will be initiated: Warfarin 5 mg PO x 1 dose Patient?s INR, condition, and signs/symptoms of bleeding will be monitored daily. Recommended post discharge dosing: TBD Thank you for allowing me to participate in the care for this patient. Current Laboratory Values Recent Labs 06/10/24 2330 INR 1.3 Recent Labs 06/10/24 2330 HB 11.4* HCT 37.5 PLT 330 Estimated Creatinine Clearance: 46 mL/min (based on SCr of 0.87 mg/dL). Current Medications Current Facility-Administered Medications Medication Dose Route Frequency lisinopril 5 mg tab(s) (ZESTRIL) 5 mg ORAL DAILY metoprolol tartrate (short acting) 25 mg tab(s) (LOPRESSOR) 25 mg ORAL q [address] 40 mg tab(s) (PROTONIX) 40 mg ORAL DAILY (6 AM) NaCl 0.9% iv flush bag 20 mL INTRAVENOUS PRN atorvastatin 80 mg tab(s) (LIPITOR) 80 mg ORAL/FEEDING TUBE AT BEDTIME acetaminophen 650 mg tab(s) (TYLENOL) 650 mg ORAL/FEEDING TUBE q 4 H PRN sodium chloride 0.9 % (flush) 2-10 mL (BD POSIFLUSH) 2-10 mL INTRAVENOUS DIRECTED PRN And perflutren lipid microspheres 1.1 mg/mL 1.3 mL injection (DEFINITY) 1.3 mL INTRAVENOUS DIRECTED PRN WARFARIN DOSING PER PHARMACY 1 Each OTHER DAILY - WARFARIN Has patient received education: No Signature: Carl Persaud RPh Normal [facility] CT ABD/PEL W IVCONon 024 CT ABD/PEL W IVCON * * *Final Report* * * DATE OF EXAM: Jun 11 2024 3:07AM [facility] 0530 - CT ABD/PEL W IVCON / PROCEDURE REASON: Nausea/vomiting * * * * Physician Interpretation * * * * EXAMINATION: CT ABD/PEL W IVCON INDICATION: Nausea/vomiting Nausea/vomiting COMPARISON: 06/20/2022 TECHNIQUE: CT of the abdomen and pelvis was performed using standard technique, scanning from just above the dome of the diaphragm to the pubic symphysis. Contrast: IV: 100 ml of Omnipaque 350 : ml of CT Radiation dose: Integrated Dose-length product (DLP) for this visit = 477 mGy*cm. CT Dose Reduction Employed: Automated exposure control(AEC) and iterative recon FINDINGS: Lower Thorax: No consolidation. Liver: Focal fat along the pelvis from ligament. Gallbladder/Biliary: Unremarkable. No bile duct dilation. Spleen: Unremarkable. Pancreas: Unremarkable. Adrenals: No mass. Kidneys: Bilateral renal scarring. Right renal cyst. Indeterminate left renal lesion above simple fluid (1.1 cm 3:40, prior 0.9 cm). Too small to characterize hypodensities. Mild bilateral hydroureteronephrosis. Vasculature: Atherosclerotic disease. IVC filter with extruded struts, similar to prior. GI Tract: Small hiatal hernia. Diverticulosis. No wall thickening or obstruction. . Pelvis: No bladder wall thickening. Hysterectomy. Mesentery/Peritoneum/Re troperitoneum: No free air or fluid Lymph Nodes: No lymphadenopathy. Bones, soft tissues: Degenerative changes. Edema/fluid adjacent to bilateral greater trochanters, similar to prior. Quitline Counselor (topogram) images: No additional findings. IMPRESSION: 1. Mild bilateral hydroureteronephrosis to the pelvic brim without evidence of ureterolithiasis. 2. Indeterminate left renal lesion. Consider follow-up renal CT/MR for characterization. Manager Hris: DEVEN Transcribe Date/Time: Jun 11 2024 3:09A Dictated by : RAF AYALA MD This examination was interpreted and the report reviewed and electronically signed by: RAF AYALA MD on Jun 11 2024 3:40AM EST [id number] Normal [facility] CT BRAIN WO IVCONon 06-11-20 CT BRAIN WO IVCON * * *Final Report* * * DATE OF EXAM: Jun 11 2024 3:05AM [facility] 0504 - CT BRAIN WO IVCON / PROCEDURE REASON: Dizziness, non-specific * * * * Physician Interpretation * * * * EXAMINATION: CT BRAIN WO IVCON CLINICAL HISTORY: Dizziness. TECHNIQUE: Serial axial images without IV contrast were obtained from the vertex to the foramen magnum. MQ: [id number] CT Radiation dose: Integrated Dose-Length Product (DLP) for this visit = 751 mGy*cm CT Dose Reduction Employed: Iterative recon COMPARISON: None. RESULT: Localizer images: No additional findings. Post-operative change: None. Acute change: No evidence of an acute infarct or other acute parenchymal process. Hemorrhage: No evidence of acute intracranial hemorrhage. ECASS hemorrhagic transformation score: Not Applicable Mass Lesion / Mass Effect: There is no evidence of an intracranial mass or extraaxial fluid collection. No significant mass effect. Chronic change: Scattered patchy foci of low attenuation are present within supratentorial white matter which is a nonspecific finding but likely represents mild microvascular ischemia. Small area of encephalomalacia of the right occipital lobe consistent with prior infarct. Parenchyma: There is no significant volume loss. The brain parenchyma is otherwise within normal limits for age. Ventricles: The ventricles are within normal limits of size and configuration for age. Paranasal sinuses and skull base: The visualized paranasal sinuses are grossly clear. The skull base and imaged soft tissues are unremarkable. IMPRESSION: No acute intracranial abnormality. Subcortical white matter changes and small remote right occipital infarct. Manager Hris: DEVEN Transcribe Date/Time: Jun 11 2024 3:05A Dictated by : RIN LANE MD This examination was interpreted and the report reviewed and electronically signed by: RIN LANE MD on Jun 11 2024 3:16AM EST [id number] Normal [facility] ECHO WITH AGITATED SALINE CO NTRASTon 06-11-2024 ECHO WITH AGITATED SALINE CONTRAST Echocardiography Report: Transthoracic Echo [facility] Date of service: 06/11/2024 11:20:46 AM [facility] Ordering physician: DON EDWARDS Indication: TIA Technologist: Dinora Fields [facility] Interpreting physician: Nando Costa MD PATIENT: Name: MEL CASTILLO : 1940 Age: 83 years Gender: F History of arrhythmia and COPD. Primary rhythm: atrial fib. Height: 162.60 cm BSA: 1.77 m Weight: 69.20 kg BMI: 26.2 kg/m Heart rate 57 bpm Blood pressure 160/77 mmHg Technically difficult exam due to suboptimal positioning. Color Doppler was utilized to interrogate the cardiac valves assessed and spectral Doppler was utilized to determine the flow velocities and pressure gradients reported in this exam. MEASUREMENTS: Value Indexed Normal Max aortic dimension 3.0 cm Ao < 3.8 Left atrium diameter 4.4 cm (2D) Left atrial volume 65 ml (biplane A-L) 37 ml/m Giovanni <= 34 LV ID (diastole) 4.0 cm (2D) 2.29 cm/m LV ID (systole) 2.7 cm (2D) 1.50 cm/m IVS, leaflet tips 1.0 cm (2D) Posterior wall thickness 0.8 cm (2D) Left ventricular mass 116 g (2D) 66 g/m LV stroke volume 27 ml (2D biplane) LV end diastolic volume 46 ml (2D biplane) 26.2 ml/m 29<=EDVi<62 LV end systolic volume 19 ml (2D biplane) 11.0 ml/m Ejection Fraction 58 % (2D biplane) EF > 54 FINDINGS: LEFT VENTRICLE The left ventricle is small. There is no left ventricular hypertrophy. Left ventricular systolic function is normal globally. Left ventricular diastolic function was not evaluated due to AF. Wall Motion: All scored segments are normal. RIGHT VENTRICLE The right ventricle is normal in size. Right ventricular systolic function is normal. RV systolic tissue Doppler velocity is 11.5 cm/s. Tricuspid annular displacement is 1.2 cm. Estimated right ventricular systolic pressure is 46 mmHg consistent with mild pulmonary hypertension. Estimated right atrial pressure is 8 mmHg based on IVC assessment. LEFT ATRIUM The left atrial cavity is mildly dilated. RIGHT ATRIUM The right atrial cavity is normal in size. Inferior Vena Cava: The inferior vena cava appears normal measuring 1.8 cm. The vessel decreases less than 50 percent with inspiration. MITRAL VALVE There is moderate mitral annular calcification observed posterior. There is mild (1+) mitral valve regurgitation. There is mild thickening. TRICUSPID VALVE The tricuspid valve leaflets are structurally normal. There is mild (1+ - 2+) tricuspid valve regurgitation. AORTIC VALVE There is no aortic valve stenosis. There is no aortic valve regurgitation. Tricuspid aortic valve. There is mild thickening. PULMONIC VALVE The pulmonic valve cusps are structurally normal. There is no pulmonic valve regurgitation. AORTA The visualized aorta is normal in size. Measurements - Sinus: 2.5 cm. Mid ascending aorta 3.0 cm. PULMONARY ARTERIES The pulmonary arteries are unseen or not interrogated. INTERATRIAL SEPTUM There is no evidence of intracardiac shunting as detected by Doppler. PERICARDIUM There is no pericardial effusion. CONCLUSIONS: - Technically difficult exam due to suboptimal positioning. - Exam indication: TIA - The left ventricle is small. There is no left ventricular hypertrophy. Left ventricular systolic function is normal. EF = 58 5% (2D biplane) Left ventricular diastolic function was not evaluated due to AF. - The right ventricle is normal in size. Right ventricular systolic function is normal. - The left atrial cavity is mildly dilated. - Estimated right ventricular systolic pressure is 46 mmHg consistent with mild pulmonary hypertension. Estimated right atrial pressure is 8 mmHg based on IVC assessment. - Mobile echodensity measuring approx 2cm x 2cm noted in the left atrium; appears to be attached to the interatrial septum. Findings most concerning for thrombus although mass cannot be entirely excluded. - Agitated saline study not performed due to patient's advanced age and due to finding of suspected left atrium thrombus. - Exam was compared with the prior [facility] echocardiographic exam performed on 06/17/2022. Mobile echodensity concerning for thrombus noted in the left atrium on current study. Nursing staff notified of above finding on 06/11/2024 at 12:10 pm. * * * Final * * * [employer] : [id number] Normal [facility] ED NOTEon 06-11-2024 ED NOTE HNO ID: [id number] Author: GISSELL CARRINGTON RN Service: Emergency Medicine Author Type: Registered Nurse Type: ED Notes Filed: 06/11/2024 05:58 Note Text: Gave report to assigned RN on 2100. Assigned RN is ready to receive patient at this time. Normal [facility] ED NOTE HNO ID: [id number] Author: GISSELL CARRINGTON RN Service: Emergency Medicine Author Type: Registered Nurse Type: ED Notes Filed: 06/11/2024 00:40 Note Text: Dr. Mendoza at bedside placing a US IV at this time. Normal [facility] HIGH SENSITIVITY TROPONIN T (SECOND)on 06-11-2024 Troponin T.cardiac High sensitivity method [Mass/Vol] 14 ng/L High <12 [facility] Comment on above: Order Comment: Speci men Type: BLOOD SPECIMEN Ordering Facility: [facility] Address: [address] [place] [address] Performed By: #### 2 4321-2, 66295-4, #### [facility] CLIA [id number] [address] HIGH SENSITIVITY TROPONIN T (THIRD) 3 HRS AFTER INITIALon 06-11-2024 Troponin T.cardiac High sensitivity method [Mass/Vol] 14 ng/L High <12 [facility] Comment on above: Order Comment: Speci men Type: BLOOD SPECIMEN Ordering Facility: [facility] Address: [address] [place] [address] Performed By: #### 2 4321-2, 22524-3, #### [facility] CLIA [id number] [address] STATES OF [facility] HISTORY PHYSICALon HISTORY PHYSICAL HNO ID: [id number] Author: DON EDWARDS DO Service: Hospital Medicine Author Type: Physician Type: H&P Filed: 06/11/2024 14:14 Note Text: DEPARTMENT OF HOSPITAL MEDICINE HISTORY AND PHYSICAL EXAM SERVICE DATE: 06/11/2024 SERVICE TIME: 10:25 AM Primary Care Physician: Jared Evans MD, MD NIGHT AND WEEKEND COVERAGE: JENNIE COVERAGE: From 7am - 7pm, please call [phone] After 7pm, please call cross cover pager #[phone] Subjective CHIEF COMPLAINT: dizziness with vomiting, slurred speech, difficulty finding words HPI: This is a 83 year old female who presents with sudden onset dizziness and vomiting last night. Room spinning. Family noticed today that she is slurring sometimes and having problems finding her words. Think her voice is muffled. No arm or leg weakness. No tingling in face or limbs. Was seen by neurology and stat MRI/MRA ordered. Unable to have CTA yest due to CT with contrast done in ED last night. Per patient has been compliant with her coumadin but insurance stopped paying for home inr checks. She was due to have one checked tomorrow. Last one was 3 weeks ogo. PAST MEDICAL HISTORY Diagnosis Date Acute bacterial sialadenitis Chronic atrial fibrillation (HCC) GERD (gastroesophageal reflux disease) HTN (hypertension) Hypothyroidism PAST SURGICAL HISTORY Procedure Laterality Date DANDC, DIAG AND/OR THERAPEUTIC NASAL ENDOS,DIAG,UNI/ BILATERAL TOTAL ABDOM HYSTERECTOMY FAMILY HISTORY Problem Relation Age of Onset Lung Cancer Father Cancer Brother Social History Tobacco Use Smoking status: Every Day Current packs/day: 0.50 Average packs/day: 0.5 packs/day for 50.0 years (25.0 ttl pk-yrs) Types: Cigarettes Passive exposure: Never Smokeless tobacco: Never Substance Use Topics Alcohol use: Not Currently Comment: occ Drug use: Never MEDICATIONS: Reviewed warfarin (COUMADIN) 5 mg tablet, Take 5 mg by mouth daily as directed., Disp: , Rfl: pantoprazole DR (PROTONIX) 40 mg tablet, Take 1 tablet by mouth twice daily before meals (0600/1600)., Disp: 60 tablet, Rfl: 0, 06/10/2024 ascorbic acid, vitamin C, (VITAMIN C) 500 mg tablet, Take 1 tablet by mouth three times daily., Disp: 90 tablet, Rfl: 0, 06/10/2024 metoprolol tartrate, short acting, (LOPRESSOR) 25 mg tablet, Take 1 tablet by mouth every 12 hours., Disp: 60 tablet, Rfl: 0, 06/10/2024 lisinopril (ZESTRIL, PRINIVIL) 5 mg tablet, Take 1 tablet by mouth once daily., Disp: 30 tablet, Rfl: 0, 06/10/2024 acetaminophen (TYLENOL) 325 mg tablet, Take 2 tablets by mouth every 6 hours as needed for pain., Disp: , Rfl: , Unknown zinc oxide 20 % ointment, Apply to affected area as needed., Disp: , Rfl: zinc oxide 20 % ointment, Apply to affected area twice daily., Disp: , Rfl: lactobacillus rhamnosus (CULTURELLE) 10 billion cell capsule, Take 1 capsule by mouth once daily., Disp: 30 capsule, Rfl: 0 apixaban (ELIQUIS) 5 mg (74 tabs), Take 2 tablets (10 mg) by mouth twice daily for 7 days. Then take 1 tablet (5 mg) by mouth twice daily for 23 days, Disp: 74 tablet, Rfl: 0, Unknown lisinopril (ZESTRIL, PRINIVIL) 5 mg tablet, Take 5 mg by mouth once daily., Disp: , Rfl: ALLERGIES Allergen Reactions Percocet [Oxycodone* Itching REVIEW OF SYSTEM: GENERAL: Fatigue HEENT: Negative for frequent or significant headaches, No changes in hearing or vision, no nose bleeds or other nasal problems NECK: Negative for lumps, goiter, pain and significant neck swelling RESPIRATORY: Negative for cough, hemoptysis, wheezing, COPD, dyspnea or shortness of breath CARDIOVASCULAR: Hypertension GI: See HPI HEMATOLOGY/LYMPHOLOGY: Negative for prolonged bleeding, bruising easily or swollen nodes ENDOCRINE: Negative for cold or heat intolerance, polyuria, polydipsia and goiter NEURO: SEE HPI Objective PHYSICAL EXAM: BP 130/78 Pulse 86 Temp (Src) 97.6 (Oral) Resp 20 Ht 5' 4" (1.63m) Wt 152 lb 8.9 oz (69.2kg) SpO2 94% BMI 26.17 kg/(m2). O2 Therapy: Room Air Physical Exam Performed: GENERAL: Alert, no distress, cooperative HEAD/SINUSES: No significant findings EYES: PERRLA, EOMI OROPHARYNX: Lips, mucosa, and tongue normal. Teeth and gums normal. Oropharynx normal. LUNGS: Lungs clear to auscultation, Good diaphragmatic excursion CARDIAC: Normal S1 and S2; no rubs, murmurs, or gallops ABDOMEN: Abdomen soft, non-tender, BS normal, No masses or organomegaly EXTREMITIES: Extremities normal, no deformities, edema, clubbing or skin discoloration. Good capillary refill. NEURO: some dysarthria note. 5/5 strength bilat UE and LE. Lines, Drains, and Airways Line Duration Peripheral 06/11/24 [facility] Left Antecubital 20 Gauge <1 day Drain Duration External Collection Device 06/11/24 0250 [facility] <1 day Reviewed lines and needs to be continued: REASONS: Telemetry DATA: Diagnostic tests reviewed for today's visit: Most recent lab (more content not included)... Normal [facility] MRA BRAIN WO IVCONon 024 MRA BRAIN WO IVCON * * *Final Report* * * DATE OF EXAM: Jun 11 2024 3:52PM [facility] 0272 - MRA BRAIN WO IVCON / PROCEDURE REASON: Neuro deficit, acute, stroke suspected * * * * Physician Interpretation * * * * EXAMINATION: MRI BRAIN WO IVCON, MRA BRAIN WO IVCON, MRA CAROTID WO IVCON CLINICAL HISTORY: Neuro deficit, acute, stroke suspected TECHNIQUE: Routine noncontrast MRI brain protocol including diffusion images. Intracranial and carotid 3D wuuv-zv-zkxlii MRA. 3D maximum intensity projection images were created, reviewed and archived . MQ: MRAB_4 COMPARISON: CT head 06/11/2024 RESULT: BRAIN: Acute Change: Area of acute restricted diffusion and low ADC in the left hippocampal head and right cerebellar hemisphere, compatible with acute infarcts. Hemorrhage: Prior microhemorrhage in the right parietal lobe. Old blood in the bilateral cerebellar hemisphere. Mass Lesion/ Mass Effect: No evidence of an intracranial mass or extra-axial fluid collection. No significant mass effect. Chronic Change: Scattered patchy areas of increased T2 and FLAIR signal are present in the supratentorial white matter which is a nonspecific finding but likely represents mild chronic microvascular ischemia. 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 Chronic right temporal occipital infarct. Anatomic bilateral cerebellar infarcts. Parenchyma: There is mild generalized parenchymal volume loss. The brain parenchyma is otherwise within normal limits of signal intensity and morphology. Ventricles: Ventriculomegaly corresponds to the degree of parenchymal volume loss. Skull Base: Hypothalamic and pituitary region are grossly normal. Craniocervical junction is normal. No significant marrow replacement process. Vasculature: Major intracranial arterial structures, and dural venous sinuses show typical flow void, suggesting patency by spin echo criteria. Other: The visualized paranasal sinuses and mastoid air cells are clear. Left globe postsurgical changes.. Extracranial MRA: Carotid Stenosis: Right Common: No significant stenosis. Right Internal Plaque: No significant plaque formation. Right Internal Carotid Stenosis (% by NASCET Criteria): 0% Left Common: No significant stenosis. Left Internal Carotid Plaque: No significant plaque formation. Left Internal Carotid Stenosis (% by NASCET Criteria): 0% Cervical Vertebral Arteries: Patency: Bilateral Dominance: Left INTRACRANIAL MRA: The [place] is patent without significant stenosis. 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 IMPRESSION: Motion degraded study. 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 No hemorrhagic transformation or significant mass effect. Unremarkable carotid MRA. 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 Manager Hris: [facility] Transcribe Date/Time: Jun 11 2024 3:54P Dictated by : ESTHER MCKEON MD This examination was interpreted and the report reviewed and electronically signed by: ESTHER MCKEON MD on Jun 11 2024 4:13PM EST [id number] Normal [facility] MRA CAROTID WO IVCONon 06-11 MRA CAROTID WO IVCON * * *Final Report* * * DATE OF EXAM: Jun 11 2024 3:52PM [facility] 0275 - MRA CAROTID WO IVCON / PROCEDURE REASON: Neuro deficit, acute, stroke suspected * * * * Physician Interpretation * * * * EXAMINATION: MRI BRAIN WO IVCON, MRA BRAIN WO IVCON, MRA CAROTID WO IVCON CLINICAL HISTORY: Neuro deficit, acute, stroke suspected TECHNIQUE: Routine noncontrast MRI brain protocol including diffusion images. Intracranial and carotid 3D dqcm-qh-kjxmre MRA. 3D maximum intensity projection images were created, reviewed and archived . MQ: MRAB_4 COMPARISON: CT head 06/11/2024 RESULT: BRAIN: Acute Change: Area of acute restricted diffusion and low ADC in the left hippocampal head and right cerebellar hemisphere, compatible with acute infarcts. Hemorrhage: Prior microhemorrhage in the right parietal lobe. Old blood in the bilateral cerebellar hemisphere. Mass Lesion/ Mass Effect: No evidence of an intracranial mass or extra-axial fluid collection. No significant mass effect. Chronic Change: Scattered patchy areas of increased T2 and FLAIR signal are present in the supratentorial white matter which is a nonspecific finding but likely represents mild chronic microvascular ischemia. 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 Chronic right temporal occipital infarct. Anatomic bilateral cerebellar infarcts. Parenchyma: There is mild generalized parenchymal volume loss. The brain parenchyma is otherwise within normal limits of signal intensity and morphology. Ventricles: Ventriculomegaly corresponds to the degree of parenchymal volume loss. Skull Base: Hypothalamic and pituitary region are grossly normal. Craniocervical junction is normal. No significant marrow replacement process. Vasculature: Major intracranial arterial structures, and dural venous sinuses show typical flow void, suggesting patency by spin echo criteria. Other: The visualized paranasal sinuses and mastoid air cells are clear. Left globe postsurgical changes.. Extracranial MRA: Carotid Stenosis: Right Common: No significant stenosis. Right Internal Plaque: No significant plaque formation. Right Internal Carotid Stenosis (% by NASCET Criteria): 0% Left Common: No significant stenosis. Left Internal Carotid Plaque: No significant plaque formation. Left Internal Carotid Stenosis (% by NASCET Criteria): 0% Cervical Vertebral Arteries: Patency: Bilateral Dominance: Left INTRACRANIAL MRA: The [place] is patent without significant stenosis. 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 IMPRESSION: Motion degraded study. 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 No hemorrhagic transformation or significant mass effect. Unremarkable carotid MRA. 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 Manager Hris: DEVEN Transcribe Date/Time: Jun 11 2024 3:54P Dictated by : ESTHER MCKEON MD This examination was interpreted and the report reviewed and electronically signed by: ESTHER MCKEON MD on Jun 11 2024 4:13PM EST [id number] Normal [facility] MRI BRAIN WO IVCONon 024 MRI BRAIN WO IVCON * * *Final Report* * * DATE OF EXAM: Jun 11 2024 3:52PM [facility] 0294 - MRI BRAIN WO IVCON / PROCEDURE REASON: stroke * * * * Physician Interpretation * * * * EXAMINATION: MRI BRAIN WO IVCON, MRA BRAIN WO IVCON, MRA CAROTID WO IVCON CLINICAL HISTORY: Neuro deficit, acute, stroke suspected TECHNIQUE: Routine noncontrast MRI brain protocol including diffusion images. Intracranial and carotid 3D vyja-qn-husnnd MRA. 3D maximum intensity projection images were created, reviewed and archived . MQ: MRAB_4 COMPARISON: CT head 06/11/2024 RESULT: BRAIN: Acute Change: Area of acute restricted diffusion and low ADC in the left hippocampal head and right cerebellar hemisphere, compatible with acute infarcts. Hemorrhage: Prior microhemorrhage in the right parietal lobe. Old blood in the bilateral cerebellar hemisphere. Mass Lesion/ Mass Effect: No evidence of an intracranial mass or extra-axial fluid collection. No significant mass effect. Chronic Change: Scattered patchy areas of increased T2 and FLAIR signal are present in the supratentorial white matter which is a nonspecific finding but likely represents mild chronic microvascular ischemia. 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 Chronic right temporal occipital infarct. Anatomic bilateral cerebellar infarcts. Parenchyma: There is mild generalized parenchymal volume loss. The brain parenchyma is otherwise within normal limits of signal intensity and morphology. Ventricles: Ventriculomegaly corresponds to the degree of parenchymal volume loss. Skull Base: Hypothalamic and pituitary region are grossly normal. Craniocervical junction is normal. No significant marrow replacement process. Vasculature: Major intracranial arterial structures, and dural venous sinuses show typical flow void, suggesting patency by spin echo criteria. Other: The visualized paranasal sinuses and mastoid air cells are clear. Left globe postsurgical changes.. Extracranial MRA: Carotid Stenosis: Right Common: No significant stenosis. Right Internal Plaque: No significant plaque formation. Right Internal Carotid Stenosis (% by NASCET Criteria): 0% Left Common: No significant stenosis. Left Internal Carotid Plaque: No significant plaque formation. Left Internal Carotid Stenosis (% by NASCET Criteria): 0% Cervical Vertebral Arteries: Patency: Bilateral Dominance: Left INTRACRANIAL MRA: The [place] is patent without significant stenosis. 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 IMPRESSION: Motion degraded study. 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 No hemorrhagic transformation or significant mass effect. Unremarkable carotid MRA. 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 Manager Hris: DEVEN Transcribe Date/Time: Jun 11 2024 3:54P Dictated by : ESTHER MCKEON MD This examination was interpreted and the report reviewed and electronically signed by: ESTHER MCKEON MD on Jun 11 2024 4:13PM EST [id number] Normal [facility] PT panel Coag (PPP)on 2023 INR Coag (PPP) [Relative time] 1.2 {INR} Normal 0.9-1.3 [facility] Comment on above: Order Comment: Specrobson mason Type: BLOOD SPECIMEN Ordering Facility: [facility] Address: [address] [place], [place] [id number] Result Comment: Mayra min K Antagonist (VKA) Therapeutic Range: INR 2 to 3 (Target INR of 2.5) Note: For patients treated with VKA drugs, such as warfarin, the [employer] 2012 Guideline recommends a therapeutic INR range of 2 to 3 (target INR of 2.5). This recommendation includes high-risk patients with antiphospholipid syndrome with previous arterial or venous thromboembolism, current-generation mechanical or bioprosthetic aortic heart valve replacement. Note: Patients with mechanical aortic valve replacement and additional risk factors for thromboembolic events (atrial fibrillation, previous thromboembolism, LV dysfunction, hypercoagulable conditions) or an older generation mechanical AVR (i.e., ball in-Cage) or any mechanical MVR should have a INR therapeutic range of 2.5 to 3.5 (target INR of 3). Louise GH, et al. Chest 2012, 141:7S-47S Daren RA, et al. [facility] 2017, 70: 252-289 Performed By: #### 2 4321-2, 89217-4, #### [facility] CLIA [id number] [address] STATES OF [facility] PT Coag (PPP) [Time] 12.6 s Normal 9.7-13.0 [facility] Comment on above: Order Comment: Specrobson mason Type: BLOOD SPECIMEN Ordering Facility: [facility] Address: [address] [place] [address] Performed By: #### 2 4321-2, 79348-9, #### [facility] CLIA [id number] [address] [place] THERAPY NTon 06-11-2024 THERAPY NT HNO ID: [id number] Author: BASILIA MAGALLANES, CCC-PHLEBOTOMIST Service: Speech/Swallow Author Type: Speech Language Pathologist Type: Therapy (PT/OT/Speech/Resp) Filed: 06/11/2024 09:44 Note Text: Speech Therapy Clinical Swallow Evaluation SERVICE DATE: 06/11/2024 SERVICE TIME: 915 to 930 ROOM: [place] [address] IMPRESSION: Functional oropharyngeal phases of swallowing: without identified risk for aspiration Diet Recommendations: Regular Consistency Thin Liquids IDDSI Level 0 Swallowing Precautions Recommendations: Alert (patient should be fully alert for P.O. intake) Sit upright 90 degrees for all PO Reduced bite size Nursing Recommendations: Reinforce use of swallowing strategies Recommended Discharge Disposition: No further skilled speech therapy services anticipated Current Hospital Course: Admitted from home for acute onset of vertigo, nausea and vomiting, weakness. 06-11: CT Brain- No acute intracranial abnormality. Subcortical white matter changes and small remote right occipital infarct. Rehabilitation Precautions: None Reason for Speech Therapy Consult: swallowing evaluation Relevant Past Medical History: +tobacco, A-fib, DVT, ivc filter, COPD Response to Therapy Interventions: Good Participation in activities Subjective: Awake and agrees to testing Current Status Oral Hygiene: Clear, moist oral cavity, Oral Health Assessment Tool (OHAT) Dentition: Dentures-Full Current Feeding Method: IV Current Diet Textures: Regular Consistency, Thin Liquids IDDSI Level 0 Current Level Of Communication: Verbal Current Management Of Secretions: Able to self-manage Oral Motor Exam: Within Functional Limits Oral Health Assessment Tool (OHAT) Lips: 0 Tongue: 0 Gums and Tissues: 0 Saliva: 0 Natural Teeth: N/A Dentures: 0 Oral Cleanliness: 0 Dental Pain: 0 OHAT Total Score: 0 Swallow Position Of Patient During Assessment: Upright In Bed Consistencies Presented: Thin Liquids IDDSI Level 0, Pureed IDDSI Level 4, Solid Compensatory Strategies Utilized During Assessment: Alert (patient should be fully alert for P.O. intake), Feed / Eat at a slow rate, Self-monitoring, Sit upright 90 degrees for all PO, Small Bite/Sip, Voice checks Clinical Swallow Oral Pharyngeal Swallow Assessment: Within Functional Limits Suspected Esophageal Deficits: none Patient awake and alert Denies dysphagia Patient has full set of dentures Patient eats regular at home Patient swallowed thins without overt signs and symptoms of aspiration Patient swallowed puree without overt signs and symptoms of aspiration Chewing was timely with solids Patient swallowed solids without overt signs and symptoms of aspiration Laryngeal movement was detected upon palpation of the larynx Clear voice with all PO given Recommend the above diet and strategies Patient speaking at conversational level without aphasia, dysarthria No speech evaluation indicated at this time Will d/c from speech Patient /Caregiver Goals: Eat/Drink Without Restrictions Goals for Plan of Care: No skilled swallowing needs at this time Speech Rehab Potential: Good Patient will be discontinued from speech therapy when no further skilled needs are identified in this setting. PLAN: ST Frequency: Discontinue Therapy Services Reasons Inpatient Therapy Services Discontinued: No skilled needs Plan of Care Developed with: Patient, Nurse TREATMENT INTERVENTIONS: Therapy Diagnosis: No Skilled Need Interventions Provided: Clinical Swallow Evaluation (67095) $ Clinical Swallow Evaluation (27335) Billed Units: 1 unit Training and Education Provided in: Dysphagia Management The following therapeutic skills were used:: Education on role of discipline / importance of activity Skilled Treatment Time (minutes): 15 Home Environment Prior Functional Level: Within Functional Limits Patient Lives With: Self/Alone Assistance Available: PRN Prior Swallowing Function/Diet Textures: Regular Consistency, Thin Liquids IDDSI Level 0 Please see discipline specific clinical documentation flowsheet for complete details for this therapy evaluation/treatment. SIGNATURE: Basilia Magallanes CCC-PHLEBOTOMIST PATIENT NAME: Mel Castillo DATE: June 11, 2024 TIME: 9:39 AM Normal [facility] THERAPY NT HNO ID: [id number] Author: MEHREEN MANCERA PT Service: Physical Therapy Author Type: Physical Therapist Type: Therapy (PT/OT/Speech/Resp) Filed: 06/11/2024 09:27 Note Text: Physical Therapy Evaluation Summary SERVICE DATE: 06/11/2024 SERVICE TIME: 804 to 841 ROOM: [place] [address] PT 6 Clicks Score: 18 DISCHARGE RECOMMENDATIONS Outpatient PT Recommended Discharge Disposition Comments: Vestibular therapy if symptoms persist and if no central findings with MRI ASSESSMENT Response to Therapy Interventions: Good Participation in Activities Vestibular assessment completed. 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 Patient mentioned an MRI was suggested to be scheduled and would be appropriated due to inability to perform some bedside tests that help determine if central involvement (if physicians feel appropriate.) PRECAUTIONS Bed/Chair Alarm, Fall Risk CURRENT HOSPITAL COURSE Patient presents with acute onset of vertigo and nausea vomiting and weakness. She has had vertigo remotely several years in the past. History of A-fib. She is on Coumadin. 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 Family helps get groceries. Does not use any DME at baseline. SUBJECTIVE willing to participate THERAPY DIAGNOSIS Reduced mobility-other, Unsteadiness on feet, Abnormalities of gait and mobility-other, General symptoms and signs-other TREATMENT INTERVENTIONS Evaluation, Canalith Repositioning (60347) Skilled Treatment Time (minutes): 37 $ Evaluation-Moderate (44776) Billed Units: 1 unit $ Canalith Repositioning (32152) Billed Units: 1 unit Repositioning maneuver for L posterior canal but modified due to she was symptomatic in more upright (horizontal canal test position). Upon retest there was no signs. TRAINING AND EDUCATION PROVIDED Anatomy and Impact on Deficits, Assistive Device Use, Bed Mobility, Benefits of In-Hospital Mobility, Discharge Planning, Disease Specific Education, Falls Prevention, Precautions/Restriction s, Role of Physical Therapy THERAPEUTIC SKILLS USED Activity Dosing, Cues for Sequencing/Proper Technique for Activity, Cuing Verbal, Movement Facilitation, Physical Assist, Vestibular Dysfunction Management FUNCTIONAL STATUS Bed Mobility Rolling: Independent Supine To Sit: Modified Independent Sit to Supine: Modified Independent Scooting: Modified Independent Transfers Sit To Stand: Contact Guard Assistance Stand To Sit: Contact Guard Assistance Bed to Chair Gait Minimal Assistance, Additional Information Patient unsteady and unable to walk without assist Gait Device: Wheeled Walker, Hand Held Assist General Deviations/Observations : Jenni decreased, Loss of Balance, Wide base of support, Shuffling Gait, Step length decreased Gait Distance (feet): 20x2 Stairs Range of Motion: WFL Strength: WFL BALANCE Dynamic Standing Balance: Poor VESTIBULAR Vestibular Assessment Vestibular Assessment: Posterior canal BPPV (Left) Vestibular Treatment Intervention Options: Canalith repositioning maneuver Onset: Yesterday Duration: intermittent and ongoing Description of Symptoms: Feels dizzy when moves. Pt reports becoming nauseated and vomiting multiple times Position/Triggers: moving her head and changing positions Previous History of Symptoms: never had before Head Thrust: Positive (Possible positive bilaterally (pt unable to relax)) Direction Changing Nystagmus with Gaze to Same Side: (Negative) Test for Skew Deviation +/-: (Unable to test. 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 L torsional upbeating nystagmus (very brisk) Eris-Hallpike, Right: Neg Horizontal Canals, Left: Pt with signs of L posterior canal BPPV in this postion Horizontal Canals, Right: neg GOALS Transfer Sit to/from Stand with: Supervision Ambulate with: Supervision Distance: 100' Device: Wheeled Walker Goal: Pt will not have c/o vertigo or signs of nystagmus with position testing Rehab Potential: Good PLAN PT Frequency: 3 Times (more content not included)... Normal [facility] Urinalysis complete panel (U )on 06-11-2024 Bilirubin Ql (U) Negative Normal Negative [facility] Comment on above: Order Comment: Speci men Type: URINE SPECIMENOrdering Facility: [facility] Address: [address] [place] [address] Performed By: #### 2 4356-8 ####[facility]ORY[facility] [id number] [place] [address] [place] Clarity (Unsp spec) Clear Normal Clear [facility] Comment on above: Order Comment: Speci men Type: URINE SPECIMENOrdering Facility: [facility] Address: [address] [place] [address] Performed By: #### 2 4356-8 ####[facility]ORYCLIA [id number] [address] OF [facility] Color (U) Light Yellow Normal yellow [facility] Comment on above: Order Comment: Speci men Type: URINE SPECIMENOrdering Facility: [facility] Address: [address] [place] [address] Performed By: #### 2 4356-8 ####[facility]ORYCL[facility] [id number] [address] [place] Glucose Test strip (U) [Mass/Vol] Negative Normal Trace, Negative [facility] Comment on above: Order Comment: Speci men Type: URINE SPECIMENOrdering Facility: [facility] Address: [address] [place] [address] Performed By: #### 2 4356-8 ####[facility]ORYCLIA [id number] [address] [place] Hemoglobin Ql (U) Trace Normal Negative, Trace [facility] Comment on above: Order Comment: Speci men Type: URINE SPECIMENOrdering Facility: [facility] Address: [address] [place] [address] Performed By: #### 2 4356-8 ####[facility]ORYCL[facility] [id number] [address] [place] Ketones Ql (U) Negative Normal Negative, Trace [facility] Comment on above: Order Comment: Speci men Type: URINE SPECIMENOrdering Facility: [facility] Address: [address] [place] [address] Performed By: #### 2 4356-8 ####[facility]ORYCLIA [id number] [address] [place] Leukocyte esterase Test strip Ql (U) Negative Normal Negative, 25 Jose Luis/uL [facility] Comment on above: Order Comment: Speci men Type: URINE SPECIMENOrdering Facility: [facility] [facility] Address: [address] [place] [address] Performed By: #### 2 4356-8 ####[facility] LABORATORYCLIA [id number] [place] [address] [place] Nitrite Ql (U) Negative Normal Negative [facility] Comment on above: Order Comment: Speci men Type: URINE SPECIMENOrdering Facility: [facility] Address: [address] [place] [address] Performed By: #### 2 4356-8 ####[facility] LABORATORYCLIA [id number] [place] [address] [place] pH (U) [pH] High 5.0-8.0 [facility] Comment on above: Order Comment: Speci men Type: URINE SPECIMENOrdering Facility: [facility] Address: [address] [place] [address] Performed By: #### 2 4356-8 ####[facility] LABORATORYCLIA [id number] [address] [facility] Protein (U) [Mass/Vol] 1+ Abnormal Trace , Negative [facility] Comment on above: Order Comment: Speci men Type: URINE SPECIMENOrdering Facility: [facility] Address: [address] [place] [address] Performed By: #### 2 4356-8 ####[facility] LABORATORYCLIA [id number] [address] [place] [facility] RBC LM.HPF (Urine sed) [#/Area] 6-10 /HPF Abnormal 0-3 /HPF [facility] Comment on above: Order Comment: Speci men Type: URINE SPECIMENOrdering Facility: [facility] Address: [address] [place] [address] Performed By: #### 2 4356-8 ####[facility] LABORATORYCLIA [id number] [place] [address] [place] Specific gravity (U) [Rel density] 1.039 High 1.005-1.030 [facility] Comment on above: Order Comment: Speci men Type: URINE SPECIMENOrdering Facility: [facility] Address: [address] [place] [address] Performed By: #### 2 4356-8 ####[facility] LABORATORYCLIA [id number] [address] [place] Urobilinogen Ql (U) Normal Normal Normal [facility] Comment on above: Order Comment: Speci men Type: URINE SPECIMENOrdering Facility: [facility] Address: [address] [place] [address] Performed By: #### 2 4356-8 ####[facility] LABORATORYCLIA [id number] [address] WBC LM.HPF (Urine sed) [#/Area] 0-5 /HPF Normal 0-5 /HPF [facility] Comment on above: Order Comment: Speci men Type: URINE SPECIMENOrdering Facility: [facility] Address: [address] [place] [address] Performed By: #### 2 4356-8 ####[facility] LABORATORYCLIA [id number] [address] aPTT PPPon 06-11-2024 aPTT Coag (PPP) [Time] 28.2 s Normal 23.0-32.4 [facility] Comment on above: Order Comment: Speci men Type: BLOOD SPECIMENOrdering Facility: [facility] Address: [address] [place] [address] Performed By: #### 1 4979-9 ####[facility] LABORATORYCLIA [id number] [address] aPTT Coag (PPP) [Time] 28.9 s Normal 23.0-32.4 [facility] Comment on above: Order Comment: Speci men Type: BLOOD SPECIMEN [facility] Address: [address] [place] [address] Performed By: #### 2 4321-2, 34419-5, 89066-0 #### [facility] CLIA [id number] [address] CBC W Auto Differential pane l (Bld)on 06-10-2024 Basophils (Bld) [#/Vol] 0.04 10*3/uL Normal <0.11 [facility] Comment on above: Order Comment: Speci men Type: BLOOD SPECIMEN [facility] Address: [address] [place] [address] Performed By: #### 2 4321-2, 67461-5, #### [facility] CLIA [id number] [address] [place] Basophils/100 WBC (Bld) 0.7 % Normal A [facility] Comment on above: Order Comment: Speci men Type: BLOOD SPECIMEN [facility] Address: [address] [place] [address] Performed By: #### 2 4321-2, 31258-6, #### [facility] CLIA [id number] [address] [place] Differential cell count method Nom (Bld) Auto Normal [facility] Comment on above: Order Comment: Speci men Type: BLOOD SPECIMEN [facility] Address: [address] [place] [address] Performed By: #### 2 4321-2, 10716-7, #### [facility] CLIA [id number] [address] [place] Eosinophils (Bld) [#/Vol] 10*3/uL Normal <0.46 [facility] Comment on above: Order Comment: Speci men Type: BLOOD SPECIMEN [facility] Address: [address] [place] [address] Performed By: #### 2 4321-2, 64295-7, #### [facility] CLIA [id number] [address] [place] Eosinophils/100 WBC (Bld) 0.2 % Normal [facility] Comment on above: Order Comment: Speci men Type: BLOOD SPECIMEN [facility] Address: [address] [place] [address] Performed By: #### 2 4321-2, 89751-2, #### [facility] CLIA [id number] [address] [place] Erythrocyte distribution width (RBC) [Ratio] 15.6 % High 11.5-15.0 [facility] Comment on above: Order Comment: Speci men Type: BLOOD SPECIMEN [facility] Address: [address] [place] [address] Performed By: #### 2 4321-2, 71423-6, #### [facility] CLIA [id number] [address] [place] Hematocrit (Bld) [Volume fraction] 37.5 % Normal 36.0-46.0 [facility] Comment on above: Order Comment: Speci men Type: BLOOD SPECIMEN [facility] Address: [address] [place] [address] Performed By: #### 2 4321-2, 52612-0, #### [facility] CLIA [id number] [address] [place] Hemoglobin (Bld) [Mass/Vol] 11.4 g/dL Low 11.5-15.5 [facility] Comment on above: Order Comment: Speci men Type: BLOOD SPECIMEN [facility] Address: [address] [place] [address] Performed By: #### 2 4321-2, 94452-2, #### [facility] CLIA [id number] [address] [place] Immature granulocytes (Bld) [#/Vol] 10*3/uL Normal <0.10 [facility] Comment on above: Order Comment: Speci men Type: BLOOD SPECIMEN [facility] Address: [address] [place] [address] Performed By: #### 2 4321-2, 72312-1, #### [facility] CLIA [id number] [address] [place] Immature granulocytes/100 WBC (Bld) 0.4 % Normal [facility] Comment on above: Order Comment: Speci men Type: BLOOD SPECIMEN [facility] Address: [address] [place] [address] Performed By: #### 2 4321-2, 24512-4, #### [facility] CLIA [id number] [address] [place] Lymphocytes (Bld) [#/Vol] 0.61 10*3/uL Low 1.00-4.00 [facility] Comment on above: Order Comment: Speci men Type: BLOOD SPECIMEN [facility] Address: [address] [place] [address] Performed By: #### 2 4321-2, 39880-2, #### [facility] CLIA [id number] [address] OF [facility] Lymphocytes/100 WBC (Bld) 10.8 % Normal [facility] Comment on above: Order Comment: Speci men Type: BLOOD SPECIMEN [facility] Address: [address] [place] [address] Performed By: #### 2 1-2, 02280-7, #### [facility] CLIA [id number] [address] [place] MCH (RBC) [Entitic mass] 26.2 pg Normal 26.0-34.0 [facility] Comment on above: Order Comment: Speci men Type: BLOOD SPECIMEN [facility] Address: [address] [place] [address] Performed By: #### 2 4321-2, 54362-3, #### [facility] CLIA [id number] [address] [place] MCHC (RBC) [Mass/Vol] 30.4 g/dL Low 30.5-36.0 [facility] Comment on above: Order Comment: Speci men Type: BLOOD SPECIMEN [facility] Address: [address] [place] [address] Performed By: #### 2 4321-2, 54767-4, #### [facility] CLIA [id number] [address] [place] MCV (RBC) [Entitic vol] 86.2 fL Normal 80.0-100.0 A [facility] Comment on above: Order Comment: Speci men Type: BLOOD SPECIMEN [facility] Address: [address] [place] [address] Performed By: #### 2 4321-2, 85843-9, #### [facility] CLIA [id number] [address] [place] Monocytes (Bld) [#/Vol] 0.21 10*3/uL Normal <0.87 [facility] Comment on above: Order Comment: Speci men Type: BLOOD SPECIMEN [facility] Address: [address] [place] [address] Performed By: #### 2 4320-2, 39887-7, #### [facility] CLIA [id number] [address] [place] [facility] Monocytes/100 WBC (Bld) 3.7 % Normal A [facility] Comment on above: Order Comment: Speci men Type: BLOOD SPECIMEN [facility] Address: [address] [place] [address] Performed By: #### 2 1-2, 95621-3, #### [facility] CLIA [id number] [address] [place] Neutrophils (Bld) [#/Vol] 4.78 10*3/uL Normal 1.45-7.50 [facility] Comment on above: Order Comment: Speci men Type: BLOOD SPECIMEN [facility] Address: [address] [place] [address] Performed By: #### 2 1-2, 62194-5, #### [facility] CLIA [id number] [address] [place] Neutrophils/100 WBC (Bld) 84.2 % Normal [facility] Comment on above: Order Comment: Speci men Type: BLOOD SPECIMEN [facility] Address: [address] [place] [address] Performed By: #### 2 4321-2, 94787-4, #### [facility] CLIA [id number] [address] [place] Nucleated RBC (Bld) [#/Vol] 10*3/uL Normal <0.01 [facility] Comment on above: Order Comment: Speci men Type: BLOOD SPECIMEN [facility] Address: [address] [place] [address] Performed By: #### 2 1-2, 40384-1, #### [facility] CLIA [id number] [address] OF [facility] Nucleated RBC/100 WBC (Bld) [Ratio] 0.0 /100 WBC Normal [facility] Comment on above: Order Comment: Speci men Type: BLOOD SPECIMEN [facility] Address: [address] [place] [address] Performed By: #### 2 1-2, 59038-7, #### [facility] CLIA [id number] [address] [place] Platelet mean volume (Bld) [Entitic vol] 9.4 fL Normal 9.0-12.7 [facility] Comment on above: Order Comment: Speci men Type: BLOOD SPECIMEN [facility] Address: [address] [place] [address] Performed By: #### 2 1-2, 74011-9, #### [facility] CLIA [id number] [address] [place] [address] [place] Platelets (Bld) [#/Vol] 330 10*3/uL Normal 150-400 [facility] Comment on above: Order Comment: Speci men Type: BLOOD SPECIMEN [facility] Address: [address] [place] [address] Performed By: #### 2 4321-2, 39817-9, 68956-3 #### [facility] CLIA [id number] [address] RBC (Bld) [#/Vol] 4.35 10*6/uL Normal 3.90-5.20 [facility] Comment on above: Order Comment: Speci men Type: BLOOD SPECIMEN [facility] Address: [address] [place] [address] Performed By: #### 2 4321-2, 58390-8, 57203-5 #### [facility] CLIA [id number] [address] OF [facility] WBC (Bld) [#/Vol] 5.67 10*3/uL Normal 3.70-11.00 [facility] Comment on above: Order Comment: Speci men Type: BLOOD SPECIMEN [facility] Address: [address] [place] [address] Performed By: #### 2 4321-2, 71521-8, #### [facility] CLIA [id number] [address] OF [facility] Comprehensive metabolic 2000 panelon 06-10-2024 Albumin [Mass/Vol] 4.2 g/dL Normal 3.9-4.9 [facility] Comment on above: Order Comment: Speci men Type: BLOOD SPECIMENOrdering Facility: [facility] Address: [address] [place] [address] Performed By: #### 3 016-3, 95021-6, 3024-7, 56615-8 ####[facility] LABORATORYCLIA [id number] [address] OF [facility] ALP [Catalytic activity/Vol] 99 U/L Normal 34-123 [facility] Comment on above: Order Comment: Speci men Type: BLOOD SPECIMENOrdering Facility: [facility] Address: [address] [place] [address] Performed By: #### 3 016-3, 43999-3, 3023-7, 38122-0 ####[facility] LABORATORYCLIA [id number] [address] STATES OF [facility] ALT With P-5'-P [Catalytic activity/Vol] 8 U/L Normal 7-38 [facility] Comment on above: Order Comment: Speci men Type: BLOOD SPECIMENOrdering Facility: [facility] Address: [address] [place] [address] Performed By: #### 3 016-3, 87082-0, 7, 52950-0 ####[facility]ORATORYCLIA [id number] [address] OF [facility] Anion gap [Moles/Vol] 12 mmol/L Normal 8-15 [facility] Comment on above: Order Comment: Speci men Type: BLOOD SPECIMENOrdering Facility: [facility] Address: [address] [place] [address] Performed By: #### 3 016-3, 99266-2, 7, 92207-8 ####[facility]ORATORYCLIA [id number] [address] AST With P-5'-P [Catalytic activity/Vol] 12 U/L Low 13-35 [facility] Comment on above: Order Comment: Speci men Type: BLOOD SPECIMENOrdering Facility: [facility] Address: [address] [place] [address] Performed By: #### 3 016-3, 72662-5, 7, 85513-3 ####[facility]ORATORYCLIA [id number] [place] [id number] [place] [facility] Bilirubin [Mass/Vol] 0.4 mg/dL Normal 0.2-1.3 [facility] Comment on above: Order Comment: Speci men Type: BLOOD SPECIMENOrdering Facility: [facility] Address: [address] [place] [address] Performed By: #### 3 016-3, 12814-5, 7, 85786-3 ####[facility] LABORATORYCLIA [id number] [place] [address] [place] Calcium [Mass/Vol] 9.5 mg/dL Normal 8.5-10.2 [facility] Comment on above: Order Comment: Speci men Type: BLOOD SPECIMENOrdering Facility: [facility] Address: [address] [place] [address] Performed By: #### 3 016-3, 94580-4, 3024-01, 80421-8 ####[facility] LABORATORYCLIA [id number] [place] [address] [place] Chloride [Moles/Vol] 101 mmol/L Normal 98-107 [facility] Comment on above: Order Comment: Speci men Type: BLOOD SPECIMENOrdering Facility: [facility] Address: [address] [place] [address] Performed By: #### 3 016-3, 72480-4, 3024-01, ####[facility]ORATORYCLIA [id number] [place] [address] [place] CO2 [Moles/Vol] 23 mmol/L Normal 22-30 [facility] Comment on above: Order Comment: Speci men Type: BLOOD SPECIMENOrdering Facility: [facility] Address: [address] [place] [address] Performed By: #### 3 016-3, 85338-9, 7, 94464-5 ####[facility]ORATORYCLIA [id number] [place] [address] [place] Creatinine [Mass/Vol] 0.87 mg/dL Normal 0.58-0.96 [facility] Comment on above: Order Comment: Speci men Type: BLOOD SPECIMENOrdering Facility: [facility] Address: [address] [place] [address] Performed By: #### 3 016-3, 36253-5, 7, 18630-7 ####[facility]ORATORYCLIA [id number] [place] [address] [place] Creatinine and Glomerular filtration rate.predicted panel (S/P/Bld) 66 mL/min/1.73m??? Normal >=60 [facility] Comment on above: Order Comment: Rhina mason Type: BLOOD SPECIMENOrdering Facility: [facility] Address: [address] [place] [address] Result Comment: Isa mated Glomerular Filtration Rate (eGFR) is calculated using the 2020 CKD-EPI creatinine equation. This equation utilizes serum creatinine, sex, and age as parameters. The creatinine assay has traceable calibration to isotope dilution-mass spectrometry. Refer to KDIGO guidelines for clinical interpretation. In patients with unstable renal function, e.g. those with acute kidney injury, the eGFR may not accurately reflect actual GFR. Performed By: #### 3 016-3, 36245-3, 302-7, 90792-7 ####[facility]ATORYCLIA [id number] [place] [address] [place] Glucose [Mass/Vol] 157 mg/dL High 74-99 [facility] Comment on above: Order Comment: Rhina mason Type: BLOOD SPECIMENOrdering Facility: [facility] Address: [address] [place] [address] Result Comment: The [place] [employer] (ADA) provides guidance for cutoff values for fasting glucose and random glucose. The ADA defines fasting as no caloric intake for at least 8 hours. Fasting plasma glucose results between 100 to 125 mg/dL indicate increased risk for diabetes (prediabetes). Fasting plasma glucose results greater than or equal to 126 mg/dL meet the criteria for diagnosis of diabetes. In the absence of unequivocal hyperglycemia, results should be confirmed by repeat testing. In a patient with classic symptoms of hyperglycemia or hyperglycemic crisis, random plasma glucose results greater than or equal to 200 mg/dL meet the criteria for diagnosis of diabetes. Reference: Standards of Medical Care in Diabetes 2016, [place] [employer]. Diabetes Care. 2016.39(Suppl 1). Performed By: #### 3 016-3, 72404-8, 3024-7, 67584-4 ####[facility]ORATORYCLIA [id number] [place] [address] [place] Potassium [Moles/Vol] 4.3 mmol/L Normal 3.7-5.1 [facility] Comment on above: Order Comment: Speci men Type: BLOOD SPECIMENOrdering Facility: [facility] Address: [address] [place] [address] Performed By: #### 3 016-3, 44505-9, 3024-7, 01025-7 ####[facility]ATORYCLIA [id number] [address] STATES OF [facility] Protein [Mass/Vol] 7.1 g/dL Normal 6.3-8.0 [facility] Comment on above: Order Comment: Speci men Type: BLOOD SPECIMENOrdering Facility: [facility] Address: [address] [place] [address] Performed By: #### 3 016-3, 27330-3, 302-7, 41862-5 ####[facility]ORATORYCLIA [id number] [address] Sodium [Moles/Vol] 136 mmol/L Normal 136-144 [facility] Comment on above: Order Comment: Speci men Type: BLOOD SPECIMENOrdering Facility: [facility] Address: [address] [place] [address] Performed By: #### 3 016-3, 66099-1, 3027, 20356-2 ####[facility]ORATORYCLIA [id number] [address] STATES OF [facility] Urea nitrogen [Mass/Vol] 14 mg/dL Normal 7-21 [facility] Comment on above: Order Comment: Speci men Type: BLOOD SPECIMENOrdering Facility: [facility] Address: [address] [place] [address] Performed By: #### 3 016-3, 57581-5, 3023-7, 98284-8 ####[facility] LABORATORYCLIA [id number] [address] [place] ECG COMPLETEon 06-10-2024 ECG COMPLETE Ventricular Rate : 6 4 BPM QRS Duration : 90 ms Q-T Interval : 424 ms QTC Calculation(Bazett) : 437 ms Calculated R Cushing : 56 degrees Calculated T Cushing : 20 degrees ATRIAL FIBRILLATION ABNORMAL ECG NO PREVIOUS ECGS AVAILABLE Confirmed by SAKINA MELLO MD ([id number]) on 12/07/2024 10:44:28 PM NAME : MEL GUADARRAMA PID : [id number] : 1940 Gender : Female Race : ORD : [id number] Procedure Date : Jun 10 2024 23:35:14 Edit Date : Dec 07 2024 22:44:32 Diagnosis: ATRIAL FIBRILLATION ABNORMAL ECG NO PREVIOUS ECGS AVAILABLE Confirmed by SAKINA MELLO MD ([id number]) on 12/07/2024 10:44:28 PM Test Reason : Chest Pain Location : 4 : AKED EM Overread By : SAKINA MELLO MD Edited By : SAKINA MELLO MD Referred By : , Acquired by : REGAN RODRIGES [facility] ED NOTEon 06-10-2024 ED NOTE HNO ID: [id number] Author: DAMARIS HERNANDEZ RN Service: ? Author Type: Registered Nurse Type: ED Notes Filed: 06/10/2024 23:06 Note Text: Bed: 36-ED Expected date: Expected time: Means of arrival: Comments: RAMESH [facility] ED PROV NOTEon 06-10-2024 ED PROV NOTE HNO ID: [id number] Author: THOMAS SERNA MD Service: Emergency Medicine Author Type: Physician Type: ED Provider Notes Filed: 06/11/2024 05:19 Note Text: Attending Physician Attestation Note: Whatley findings confirmed. I saw the patient in coordination with the resident physician. I personally interviewed and examined the patient. I discussed the patient with the resident physician. I reviewed the resident physician's note. I was present for whatley portions of and personally supervised any/all procedures. I agree with the resident physician's findings and medical decision making unless otherwise documented. Physical Exam: Vital signs: Reviewed General: alert and oriented. No acute distress HEENT: Head is normocephalic and atraumatic, sinuses nontender, pupils equal round and reactive. Nares are patent. Oropharynx and throat exam is normal. Neck: Supple without lymphadenopathy nontender Cardiovascular. Regular rate and rhythm, no murmurs. No rubs or gallops. Normal S1 and S2 Respiratory: Clear to auscultation bilaterally. No wheezes, rales, rhonchi Abdomen: Soft and nontender. Normal bowel sounds. No guarding or rebound. Nonsurgical abdomen Extremities: No tenderness. No bruising. Normal range of motion. Normal sensation Skin: No rash or redness. Neurologic: Cranial nerves II through XII grossly intact. Normal strength and sensation. Acute vertigo when turning her head to the left or right the Tonica-Hallpike. No nystagmus noted vertical or lateral The rest of the physical exam is unremarkable Medical Decision Making: Patient presents with acute onset of vertigo and nausea vomiting and weakness. She has had vertigo remotely several years in the past. History of A-fib. He is on Coumadin. Denies any abdominal pain. She has had 6 episodes of emesis per patient. No home treatment. Came in for further evaluation. Lab work and imaging studies obtained. Given symptom control. Patient continued to have vertigo after multiple treatments. CT brain unremarkable. CT abdomen pelvis shows the following: IMPRESSION: 1. Mild bilateral hydroureteronephrosis to the pelvic brim without evidence of ureterolithiasis. 2. Indeterminate left renal lesion. Consider follow-up renal CT/MR for characterization. I do not feel the above findings are contributing to her acute vertigo. Will follow-up as an outpatient for these. Hemoglobin 11.4. Cardiac enzymes unremarkable 14 x 3. Will be admitted for further evaluation and treatment of her vertigo and intractable nausea vomiting. THOMAS SERNA 06/11/24 0519 Normal [facility] ED PROV NOTE HNO ID: [id number] Author: THOMAS SERNA MD Service: Emergency Medicine Author Type: Resident Type: ED Provider Notes Filed: 06/12/2024 02:27 Note Text: Attestation signed by Thomas Serna MD at 06/12/2024 2:27 AM Attending Attestation Note: Whatley findings confirmed. I evaluated the patient in conjunction with the resident physician. I personally examined the patient. I discussed the patient with the resident physician. I reviewed the resident physician's note. I was present for whatley portions of and personally supervised any/all procedures. I personally made/approved the management plan and take responsibility for the patient management. Please refer to my separately documented ED Provider Note for further details. Signature: Thomas Serna MD Date: 06/12/2024 Time: 2:27 AM ED Provider Note Patient Name: Mel Castillo : 1940 SERVICE DATE: 06/10/24 History Patient presents with: Nausea AND Vomiting: Sudden onset of n/v starting approx 5pm. Denies abd pain or diarrhea. Pt arriving from home, reporting general weakness after the vomiting Patient is a 83-year-old female presenting to the emergency department for sudden onset nausea, vomiting and dizziness around 5 PM this evening. Patient has a past medical history as below, notable for A-fib on warfarin. Patient states that she began having nausea and dizziness tonight and then had 5 episodes of nonbloody, nonbilious vomiting. She denies any fevers, chills, chest pain, shortness of breath, abdominal pain, diarrhea, dysuria or hematuria. Patient states she is never had this happen her before. She denies any recent head trauma. States that she feels so dizzy and weak that she cannot ambulate. PAST MEDICAL HISTORY Diagnosis Date Acute bacterial sialadenitis Chronic atrial fibrillation (HCC) GERD (gastroesophageal reflux disease) HTN (hypertension) Hypothyroidism PAST SURGICAL HISTORY Procedure Laterality Date DANDC, DIAG AND/OR THERAPEUTIC NASAL ENDOS,DIAG,UNI/ BILATERAL TOTAL ABDOM HYSTERECTOMY FAMILY HISTORY Problem Relation Age of Onset Lung Cancer Father Cancer Brother Social History Tobacco Use Smoking status: Every Day Current packs/day: 0.50 Average packs/day: 0.5 packs/day for 50.0 years (25.0 ttl pk-yrs) Types: Cigarettes Passive exposure: Never Smokeless tobacco: Never Substance and Sexual Activity Alcohol use: Not Currently Comment: occ Drug use: Never Sexual activity: Not on file ALLERGIES Allergen Reactions Percocet [Oxycodone* Itching Review of Systems Constitutional: Negative for chills and fever. HENT: Negative for congestion and sore throat. Eyes: Negative for photophobia and visual disturbance. Respiratory: Negative for cough, shortness of breath and wheezing. Cardiovascular: Negative for chest pain, palpitations and leg swelling. Gastrointestinal: Positive for nausea and vomiting. Negative for abdominal pain and diarrhea. Genitourinary: Negative for dysuria, flank pain and hematuria. Neurological: Positive for dizziness and light-headedness. Negative for syncope, weakness, numbness and headaches. All other systems reviewed and are negative. Physical Exam Vitals [06/10/24 2307] BP Pulse Temp Temp src Resp SpO2 Weight Height 180/85 68 36.3 ?C (97.3 ?F) Oral 18 95 % 71.2 kg (157 lb) -- Physical Exam Vitals and nursing note reviewed. Constitutional: General: She is not in acute distress. Appearance: She is well-developed. She is ill-appearing (chronically). She is not toxic-appearing or diaphoretic. HENT: Head: Normocephalic and atraumatic. Eyes: Extraocular Movements: Extraocular movements intact. Pupils: Pupils are equal, round, and reactive to light. Cardiovascular: Rate and Rhythm: Normal rate and regular rhythm. Heart sounds: Normal heart sounds. No murmur heard. No friction rub. No gallop. Pulmonary: Effort: Pulmonary effort is normal. Breath sounds: Normal breath sounds. No wheezing, rhonchi or rales. Abdominal: General: Abdomen is flat. There is no distension. Palpations: Abdomen is soft. Tenderness: There is no abdominal tenderness. There is no guarding or rebound. Skin: General: Skin is warm and dry. Neurological: General: No focal deficit present. Mental Status: She is alert and oriented to person, place, and time. GCS: GCS eye subscore is 4. GCS verbal subscore is 5. GCS motor subscore is 6. Cranial Nerves: Cranial nerves 2-12 are intact. Sensory: Sensation is intact. Motor: Motor function is intact. Coordination: Coordination is intact. Comments: Gait unable to be assessed, attempted to ambulate the patient but she could not get out of bed due to dizziness Diagnostic Testing ED Labs Ord (more content not included)... Normal [facility] HIGH SENSITIVITY TROPONIN T (INITIAL)on 06-10-2024 Troponin T.cardiac High sensitivity method [Mass/Vol] 14 ng/L High <12 [facility] Comment on above: Order Comment: Rhina mason Type: BLOOD SPECIMENOrdering Facility: [facility] Address: [address] [place] [address] Performed By: #### L [id number] ####[facility] LABORATORYCLIA [id number] [address] STATES OF [facility] HbA1c (Bld)on 06-10-2024 Average glucose Estimated from glycated hemoglobin (Bld) [Mass/Vol] 120 mg/dL Normal [facility] Comment on above: Order Comment: Rhina mason Type: BLOOD SPECIMEN [facility] Address: [address] [place] [address] Result Comment: eAG: (Estimated average glucose) is a calculated value from HgbA1c and is artist's representative of the average blood glucose level in the last 2-3 month period. Performed By: #### 2 4321-2, 01717-5, #### [facility] CLIA [id number] [address] STATES OF [facility] HbA1c (Bld) [Mass fraction] 5.8 % High 4.3-5.6 [facility] Comment on above: Order Comment: Rhina mason Type: BLOOD SPECIMEN [facility] Address: [address] [place] [address] Result Comment: Amer [place] Diabetes Association guidelines indicate that patients with HgbA1c in the range 5.7-6.4% are at increased risk for development of diabetes, and intervention by lifestyle modification may be beneficial. HgbA1c greater or equal to 6.5% is considered diagnostic of diabetes. Performed By: #### 2 4321-2, 42207-7, #### [facility] CLIA [id number] [address] [place] Lipid 1996 panelon 4 Cholesterol [Mass/Vol] 227 mg/dL High <200 [facility] Comment on above: Order Comment: Speci men Type: BLOOD SPECIMENOrdering Facility: [facility] Address: [address] [place] [address] Result Comment: <200 mg/dL, Desirable 200-239 mg/dL, Borderline high >239 mg/dL, High Performed By: #### 3 016-3, 90003-8, 3023-7, 61057-6 ####[facility] LABORATORYCLIA [id number] [address] STATES [place] Cholesterol in HDL [Mass/Vol] 78 mg/dL Normal >39 [facility] Comment on above: Order Comment: Speci men Type: BLOOD SPECIMENOrdering Facility: [facility] Address: [address] [place] [address] Result Comment: 40-5 9 mg/dL, Acceptable >59 mg/dL, High: Negative risk factor for coronary heart disease <40 mg/dL, Low: Positive risk factor for coronary heart disease Performed By: #### 3 016-3, 23236-0, 3023-7, 68124-3 ####[facility] LABORATORYCLIA [id number] [address] STATES OF [facility] Cholesterol in LDL [Mass/Vol] 139 mg/dL High <100 [facility] Comment on above: Order Comment: Speci men Type: BLOOD SPECIMENOrdering Facility: [facility] Address: [address] [place] [address] Result Comment: <100 mg/dL, Optimal 100-129 mg/dL, Near optimal/above optimal 130-159 mg/dL, Borderline high 160-189 mg/dL, High >189 mg/dL, Very high Secondary prevention optimal LDL Cholesterol levels are recommended to be < 70 mg/dL Performed By: #### 3 016-3, 53982-7, 3024-7, 55702-4 ####[facility] LABORATORYCLIA [id number] [address] [place] Cholesterol in LDL/Cholesterol in HDL [Mass ratio] 1.78 {ratio} Normal <2.54 [facility] Comment on above: Order Comment: Rhina mason Type: BLOOD SPECIMENOrdering Facility: [facility] Address: [address] [place] [address] Result Comment: Brii nath: 1. National Cholesterol Education Program ATP III Guideline At-A-Glance Quick Desk Reference: National Heart, Lung, and Blood [place]. National Institutes of Health. 2001: NIH Publication No. 01-3305. 2. An International Atherosclerosis Society position paper: global recommendations for the management of dyslipidemia: executive summary, Atherosclerosis. 2014: 232(2):410-413. Performed By: #### 3 016-3, 98234-8, 7, 85073-6 ####[facility] LABORATORYCLIA [id number] [place] [address] [place] Cholesterol in VLDL [Mass/Vol] 10 mg/dL Normal <30 [facility] Comment on above: Order Comment: Samirrobson mason Type: BLOOD SPECIMENOrdering Facility: [facility] Address: [address] [place] [address] Performed By: #### 3 016-3, 58021-0, 7, 99724-8 ####[facility] LABORATORYCLIA [id number] [address] STATES [place] Cholesterol non HDL [Mass/Vol] 149 mg/dL High <130 [facility] Comment on above: Order Comment: Rhina mason Type: BLOOD SPECIMENOrdering Facility: [facility] Address: [address] [place] [address] Result Comment: <130 mg/dL, Optimal 130-159 mg/dL, Near optimal/above optimal 160-189 mg/dL, Borderline high 190-219 mg/dL, High >219 mg/dL, Very high Secondary prevention optimal non HDL Cholesterol levels are recommended to be <100 mg/dL Performed By: #### 3 016-3, 75618-5, 3024-7, 77642-3 ####[facility] LABORATORYCLIA [id number] [address] [place] Cholesterol.total/Pastora sterol in HDL [Mass ratio] 2.91 {ratio} Normal <5.10 [facility] Comment on above: Order Comment: Rhina mason Type: BLOOD SPECIMENOrdering Facility: [facility] Address: [address] [place] [address] Performed By: #### 3 016-3, 26019-8, 3024-7, 36129-5 ####[facility] LABORATORYCLIA [id number] [address] FASTING TIME Normal [facility] Comment on above: Order Comment: Rhina mason Type: BLOOD SPECIMENOrdering Facility: [facility] Address: [address] [place] [address] Result Comment: Unkn own Performed By: #### 3 016-3, 27168-3, 7, 74730-1 ####[facility] LABORATORYCLIA [id number] [address] Triglyceride [Mass/Vol] 49 mg/dL Normal <150 [facility] Comment on above: Order Comment: Rhina mason Type: BLOOD SPECIMENOrdering Facility: [facility] Address: [address] [place] [address] Result Comment: <150 mg/dL, Normal 150-199 mg/dL, Borderline high 200-499 mg/dL, High >499 mg/dL, Very high Performed By: #### 3 016-3, 98422-8, 3024-7, 45819-2 ####[facility] LABORATORYCLIA [id number] [address] OF [facility] PT panel Coag (PPP)on 2023 INR Coag (PPP) [Relative time] 1.3 {INR} Normal 0.9-1.3 [facility] Comment on above: Order Comment: Samirrobson mason Type: BLOOD SPECIMENOrdering Facility: [facility] Address: [address] [place] [address] Result Comment: Mayra min K Antagonist (VKA) Therapeutic Range: INR 2 to 3 (Target INR of 2.5) Note: For patients treated with VKA drugs, such as warfarin, the [place] [employer] 2012 Guideline recommends a therapeutic INR range of 2 to 3 (target INR of 2.5). This recommendation includes high-risk patients with antiphospholipid syndrome with previous arterial or venous thromboembolism, current-generation mechanical or bioprosthetic aortic heart valve replacement. Note: Patients with mechanical aortic valve replacement and additional risk factors for thromboembolic events (atrial fibrillation, previous thromboembolism, LV dysfunction, hypercoagulable conditions) or an older generation mechanical AVR (i.e., ball in-Cage) or any mechanical MVR should have a INR therapeutic range of 2.5 to 3.5 (target INR of 3). Louise YANG, et al. Chest 2012, 141:7S-47S Daren RA, et al. [facility] 2017, 70: 252-289 Performed By: #### 3 4528-0 ####[facility] LABORATORYCLIA [id number] [place] [address] [place] PT Coag (PPP) [Time] 13.2 s High 9.7-13.0 [facility] Comment on above: Order Comment: Speci men Type: BLOOD SPECIMENOrdering Facility: [facility] Address: [address] [place] [address] Performed By: #### 3 4528-0 ####[facility]ITALCLIA [id number] [address] [place] T4 Free SerPl-mCncon 024 Free T4 [Mass/Vol] 1.3 ng/dL Normal 0.9-1.7 [facility] Comment on above: Order Comment: Speci men Type: BLOOD SPECIMENOrdering Facility: [facility] Address: [address] [place] [address] Performed By: #### 3 016-3, 83313-1, 3024-7, 45922-7 ####[facility] LABORATORYCLIA [id number] [place] [address] [place] TSH SerPl-aCncon 06-10-2024 TSH Qn 1.620 m[IU]/L Normal 0.270-4.200 [facility] Comment on above: Order Comment: Speci men Type: BLOOD SPECIMENOrdering Facility: [facility] Address: [address] [place] [id number] Performed By: #### 3 016-3, 23675-6, 3024-7, 41064-9 ####[facility] LABORATORYCLIA [id number] [place] [address] [place] 36on 06-04-2024 36 Normal [facility] 36on 06-01-2024 36 Normal [facility] Progress Noteon 05-22-2024 Progress Note Normal [facility] PT Coag (Bld) [Time]on 05-21 INR Coag (PPP) [Relative time] 2.8 {INR} Abnormal 0.9 - 1.1 [facility] Interpretation and review of laboratory results Abnormal [facility] Progress Noteon 05-21-2024 Progress Note Normal [facility] Progress Note INR reported on yoan y Christin with [facility]. Christin can be reached at [phone] with questions. Normal [facility] Protime-INRon 05-21-2024 PT Coag (Bld) [Time] 33.9 s Abnormal 9.0 - 12.0 [facility] Heart TransthoracicOrdere d By: Davian Landrum on 05-14-2024 Ao Root Index 1.63 cm/m2 [facility] Work Phone: [phone] Aortic Arch 2.6 cm [facility] Work Phone: Aortic Root 2.8 cm [facility] Work Phone: Aortic Sinus Valsalva 2.[address] [facility] Work Phone: Aortic Sinus Valsalva Index 1.63 cm/m2 [facility] Work Phone: Ascending Aorta 2.7 cm [facility] Work Phone: Ascending Aorta Index 1.57 cm/m2 [facility] Work Phone: AV Area by Peak Velocity 1.4 cm2 [facility] Work Phone: AV Area by VTI 1.4 cm2 [facility] Work Phone: AV Mean Gradient 3 mmHg [facility] Work Phone: AV Mean Velocity 0.9 m/s [facility] Work Phone: AV Peak Gradient 7 mmHg [facility] Work Phone: AV Peak Velocity 1.3 m/s [facility] Work Phone: AV Velocity Ratio 0.62 [facility] Work Phone: AV VTI 30 cm [facility] Work Phone: POLA/BSA Peak Velocity 0.8 cm2/m2 [facility] Work Phone: POLA/BSA VTI 0.8 cm2/m2 [facility] Work Phone: E/E' Lateral 14 [facility] Work Phone: E/E' Ratio (Averaged) 18 [facility] Work Phone: E/E' Septal 22 [facility] Work Phone: [phone] EF BP 61 % 55 - 100 % [facility] Work Phone: [phone] Est. RA Pressure 3 mmHg [facility] Work Phone: Fractional Shortening 2D 30 % 28 - 44 % [facility] Work Phone: [phone] Global Longitudinal Strain -15.3 % [facility] Work Phone: [phone] Interpretation and review of laboratory results Abnormal [facility] Work Phone: [phone] IVC Diameter 1.8 cm [facility] Work Phone: [phone] IVSd 1 cm Abnormal 0.6 - 0.9 cm [facility] Work Phone: [phone] LA Diameter 4.1 cm [facility] Work Phone: [phone] LA Size Index 2.38 cm/m2 [facility] He[facility] US Toxicology Work Phone: [phone] LA Volume 2C 63 mL Abnormal 22 - 52 mL [facility] Work Phone: [phone] LA Volume 4C 80 mL Abnormal 22 - 52 mL [facility] Work Phone: LA Volume A/L 76 mL [facility] Work Phone: LA Volume BP 72 mL Abnormal 22 - 52 mL [facility] Work Phone: [phone] LA Volume Index 2C 37 mL/m2 Abnormal 16 - 34 mL/m2 [facility] Work Phone: LA Volume Index 4C 47 mL/m2 Abnormal 16 - 34 mL/m2 [facility] Work Phone: LA Volume Index A/L 44 mL/m2 16 - 34 mL/m2 [facility] Work Phone: LA Volume Index BP 42 ml/m2 Abnormal 16 - 34 ml/m2 [facility] Work Phone: LA/AO Root Ratio 1.46 [facility] Work Phone: LV E' Lateral Velocity 11 cm/s [facility] Work Phone: LV E' Septal Velocity 7 cm/s [facility] Work Phone: LV EDV A2C 45 mL [facility] Work Phone: LV EDV A4C 48 mL [facility] Work Phone: LV EDV BP 47 mL Abnormal 56 - 104 mL [facility] Work Phone: LV EDV Index A2C 26 mL/m2 [facility] Work Phone: LV EDV Index A4C 28 mL/m2 [facility] Work Phone: LV EDV Index BP 27 mL/m2 [facility] Work Phone: LV Ejection Fraction A2C 68 % [facility] Work Phone: LV Ejection Fraction A4C 55 % [facility] Work Phone: LV ESV A2C 14 mL [facility] Work Phone: LV ESV A4C 21 mL [facility] Work Phone: LV ESV BP 18 mL Abnormal 19 - 49 mL [facility] Work Phone: LV ESV Index A2C 8 mL/m2 [facility] Work Phone: LV ESV Index A4C 12 mL/m2 [facility] Work Phone: [phone] LV ESV Index BP 10 mL/m2 [facility] lt Work Phone: [phone] LV Mass 2D 142.5 g 67 - 162 g [facility] Work Phone: [phone] LV Mass 2D Index 82.8 g/m2 43 - 95 g/m2 [facility] [employer] Work Phone: [phone] LV RWT Ratio 0.47 [facility] [employer] Work Phone: [phone] LVIDd 4.3 cm 3.9 - 5.3 cm [facility] [employer] Work Phone: [phone] LVIDd Index 2.5 cm/m2 [facility] [employer] Work Phone: [phone] LVIDs 3 cm [facility] Work Phone: [phone] LVIDs Index 1.74 cm/m2 [facility] [employer] Work Phone: [phone] LVOT Area 2.5 cm2 [facility] [employer] Work Phone: [phone] LVOT Cardiac Output 3.2 liter/mi nut e [facility] [employer] Work Phone: [phone] LVOT Diameter 1.8 cm [facility] [facility] Toxicology Work Phone: [phone] LVOT Mean Gradient 1 mmHg [facility] [employer] Work Phone: [phone] LVOT Peak Gradient 2 mmHg [facility] Work Phone: [phone] LVOT Peak Velocity 0.8 m/s [facility] [employer] Work Phone: [phone] LVOT Stroke Volume Index 25.1 mL/m2 [facility] [employer] Work Phone: [phone] LVOT SV 43.2 ml [facility] [employer] Work Phone: [phone] LVOT VTI 17 cm [facility] [employer] Work Phone: [phone] LVOT:AV VTI Index 0.57 [facility] ealth Work Phone: [phone] LVPWd 1 cm Abnormal 0.6 - 0.9 cm [facility] [employer] Work Phone: [phone] MV A Velocity 0.41 m/s [facility] Work Phone: MV Area by PHT 3.3 cm2 [facility] Work Phone: MV Area by VTI 1.2 cm2 [facility] Work Phone: MV E Velocity 1.54 m/s [facility] Work Phone: MV E Wave Deceleration Time 180.9 ms [facility] Work Phone: MV E/A 3.76 [facility] Work Phone: MV Max Velocity 1.7 m/s [facility] Work Phone: MV Mean Gradient 4 mmHg [facility] Work Phone: MV Mean Velocity 0.9 m/s [facility] Work Phone: MV Peak Gradient 11 mmHg [facility] Work Phone: MV PHT 66.9 ms [facility] Work Phone: MV VTI 35.1 cm [facility] Work Phone: MV:LVOT VTI Index 2.06 [facility] Work Phone: [phone] RA Area 4C 55.1 mL [facility] Work Phone: RV Basal Dimension 2.7 cm [facility] Work Phone: [phone] RV Free Wall Peak S' 11 cm/s [facility] Work Phone: RV Longitudinal Dimension 4.9 cm [facility] Work Phone: RV Mid Dimension 2.1 cm [facility] Work Phone: RVSP 54 mmHg [facility] Work Phone: Sinotubular Junction 2.7 cm [facility] Work Phone: TAPSE 1.5 cm Abnormal 1.7 cm [facility] Work Phone: TR Max Velocity 3.56 m/s [facility] Work Phone: TR Peak Gradient 51 mmHg [facility] Work Phone: TR Peak Velocity PISA 3.6 m/s [facility] Work Phone: [phone] TR VTI 120.8 cm [facility] [employer] Work Phone: [phone] TV EROA 0.2 cm2 [facility] Work Phone: [phone] TV Nyquist Velocity 39 cm/s [facility] Work Phone: [phone] [facility] [employer] Phone: US Heart Transthoracicon 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 Please consider consult with cardiology and cardiovascular surgery. Left Ventricle: Left ventricle size is normal. Normal wall thickness. Normal left ventricular systolic function. EF by 2D Simpsons Biplane is 61%. Global 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 strain is reduced with a value of -15.3%. Normal wall motion. Right Ventricle: Right ventricle size is normal. Normal systolic function. Left Atrium: Left atrium size is moderately increased (LA volume index 42-48 mL/m2). Tricuspid Valve: Moderate (2+) regurgitation. RVSP is 54 mmHg. Left Ventricle Left ventricle size is normal. Normal wall thickness. Normal left ventricular systolic function. EF by 2D Simpsons Biplane is 61%. Global 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 strain is reduced with a value of -15.3%. Normal wall motion. Right Ventricle Right ventricle size is normal. Normal systolic function. Left Atrium Left atrium size is moderately increased (LA volume index 42-48 mL/m2). Right Atrium Right atrium size is normal. IVC/SVC IVC diameter is normal and decreases greater than 50% during inspiration; therefore the estimated right atrial pressure is normal (~3 mmHg). Mitral Valve Mild annular calcification (posterior). Mild (1+) regurgitation. No stenosis noted. Tricuspid Valve Valve structure is normal. Moderate (2+) regurgitation. RVSP is 54 mmHg. Aortic Valve Trileaflet. Mildly thickened cusps. No cusp calcification. No regurgitation. No stenosis. Pulmonic Valve The pulmonic valve visualization is suboptimal but appears to be functioning normally. Trace regurgitation. Ascending Aorta Normal sized sinuses of Valsalva and ascending aorta. Pericardium No pericardial effusion. Septum No interatrial shunt visualized on color Doppler. Study Details Image quality: adequate. Additional technique includes myocardial strain. Heart rate: 68 bpm. Blood pressure: 159/79 mmHg. Technical qualifiers: Unable to obtain IV access. No contrast was given. Dr. Alex was notified at the time the test was being performed. He also notified the ordering physician of the findings. [facility] PT Coag (Bld) [Time]on 05-09 INR Coag (PPP) [Relative time] 2.7 {INR} Abnormal 0.9 - 1.1 [facility] Interpretation and review of laboratory results Abnormal [facility] Progress Noteon 05-09-2024 Progress Note Graciela from [facility] call ed in results. Normal [facility] Progress Note Normal [facility] Protime-INRon 05-09-2024 PT Coag (Bld) [Time] 32.1 s Abnormal 9.0 - 12.0 [facility] PT Coag (Bld) [Time]on 05-01 INR Coag (PPP) [Relative time] 2.7 {INR} Abnormal 0.9 - 1.1 [facility] Interpretation and review of laboratory results Abnormal [facility] Progress Noteon 05-01-2024 Progress Note Normal [facility] Progress Note Tia- [facility]- [phone] Normal [facility] Protime-INRon 05-01-2024 PT Coag (Bld) [Time] 32.4 s Abnormal 9.0 - 12.0 [facility] 36on 04-27-2024 36 Pt requested refill on warfarin 5mg. Sent to [facility]. Receipt confirmed by pharmacy. Normal [facility] Progress Noteon 04-27-2024 Progress Note Normal [facility] Progress Note Tia- [facility]- [phone] Normal [facility] Progress Noteon 04-25-2024 Progress Note Normal [facility] Progress Noteon 04-23-2024 Progress Note Normal [facility] Progress Note Christin [facility] called any questions or concerns [phone]. Normal [facility] PT Coag (Bld) [Time]on 04-19 INR Coag (PPP) [Relative time] 2.1 {INR} Abnormal 0.9 - 1.1 [facility] Interpretation and review of laboratory results Abnormal [facility] Progress Noteon 04-19-2024 Progress Note Normal [facility] Progress Note Graciela with [facility] repo rts INR on vm Graciela can be reached at [phone] with any questions. Normal [facility] Protime-INRon 04-19-2024 PT Coag (Bld) [Time] 24.9 s Abnormal 9.0 - 12.0 [facility] Progress Noteon 04-16-2024 Progress Note Christin- [facility]- [phone] Normal [facility] Progress Note Normal [facility] Progress Noteon 04-14-2024 Progress Note Placed new order for POCT INR, [facility] had not received. Normal [facility] [id number] 04-13-2024 [id number] Normal [facility] APTTon 04-13-2024 aPTT Coag (Bld) [Time] 132.2 s Critically high 20.0-30. 5 [facility] Comment on above: Result Comment: BUBBA Garcia COMMENTS:NOTE: The therapeutic time for Heparin anticoagulation, based on Xa activity inhibition, is an APTT of 46-80 seconds. Performed By: #### L [id number], [id number] ####Improvement Auditor: VELMA VALADEZ ([phone])[facility])[address] [place] [address] BASIC METABOLIC PANELon 09-2 Anion gap [Moles/Vol] 2 mmol/L Low 3-13 [facility] Comment on above: Performed By: #### L AB15 ####Improvement Auditor: VELMA VALADEZ ([id number])[facility])[address] [place] [address] Calcium [Mass/Vol] 9.0 mg/dL Normal 8.4-10.4 [facility] Comment on above: Performed By: #### L AB15 ####Improvement Auditor: VELMA VALADEZ ([id number])[facility] [place] [address] [place] Chloride [Moles/Vol] 108 mmol/L High 98-107 [facility] Comment on above: Performed By: #### L AB15 ####Improvement Auditor: VELMA VALADEZ ([id number])[facility])[address] [place] [address] CO2 [Moles/Vol] 25 mmol/L Normal 22-30 [facility] Comment on above: Performed By: #### L AB15 ####Improvement Auditor: VELMA VALADEZ ([id number])[facility])[address] [place] [address] Creatinine [Mass/Vol] 1.00 mg/dL Normal 0.52-1.04 [facility] Comment on above: Performed By: #### L AB15 ####Improvement Auditor: VELMA VALADEZ ([phone])[facility])[address] [place] [address] GLOMERULAR FILTRATION RATE ML/MIN/1.73 SQ M.PREDICTED 55.7 mL/min/1.73m*2 Low >60.0 [facility] Comment on above: Result Comment: Calc ulation based on the Chronic Kidney Disease Epidemiology Collaboration (CKD-EPI) equation refit without adjustment for race Performed By: #### L AB15 ####Improvement Auditor: VELMA VALADEZ ([phone])[facility])[address] [place] [address] Glucose [Mass/Vol] 98 mg/dL Normal 70-100 [facility] Comment on above: Performed By: #### L AB15 ####Improvement Auditor: VELMA VALADEZ ([phone])[facility])[address] [place] [address] Potassium [Moles/Vol] 4.3 mmol/L Normal 3.5-5.1 [facility] Comment on above: Performed By: #### L AB15 ####Improvement Auditor: VLEMA VALADEZ ([id number])[facility])[address] [place] [address] Sodium [Moles/Vol] 135 mmol/L Normal 135-145 [facility] Comment on above: Performed By: #### L AB15 ####Improvement Auditor: VELMA VALADEZ ([id number])[facility] ([facility])[address] [place] [address] Urea nitrogen [Mass/Vol] 18 mg/dL High 7-17 [facility] Comment on above: Performed By: #### L AB15 ####Improvement Auditor: VELMA VALADEZ ([id number])[facility] [place] [address] Basic metabolic 1998 panelon 04-13-2024 Anion gap [Moles/Vol] 2 mmol/L Low 3 - 13 mmol/L [facility] Calcium [Mass/Vol] 9.0 mg/dL 8.4 - 10. 4 mg/dL [facility] Chloride [Moles/Vol] 108 mmol/L High 98 - 10 7 mmol/L [facility] CO2 [Moles/Vol] 25 mmol/L 22 - 30 mmol/L [facility] Creatinine [Mass/Vol] 1.00 mg/dL 0.52 - 1.04 mg/dL [facility] GFR/1.73 sq M.predicted (S/P/Bld) [Vol rate/Area] 55.7 mL/min Low - PINF [facility] Comment on above: Calculation based on the Chronic Kidney Disease Epidemiology Collaboration (CKD-EPI) equation refit without adjustment for race Glucose [Mass/Vol] 98 mg/dL 70 - 100 mg/dL [facility] Interpretation and review of laboratory results Abnormal [facility] Potassium [Moles/Vol] 4.3 mmol/L 3.5 - 5.1 mmol/L [facility] Sodium [Moles/Vol] 135 mmol/L 135 - 145 mmol/L [facility] Urea nitrogen [Mass/Vol] 18 mg/dL High 7 - 17 mg/dL [facility] CARECOORDon 04-13-2024 CARECOORD Normal [facility] Normal [facility] CBC W Auto Differential pane l (Bld)on 04-13-2024 Basophils (Bld) [#/Vol] 0.0 10*3/uL 0.0 - 0.2 10*3/uL [facility] Basophils/100 WBC (Bld) 0.7 % 0.0 - 2.0 % [facility] Eosinophils (Bld) [#/Vol] 0.1 10*3/uL 0.0 - 0.5 10*3/uL [facility] Eosinophils/100 WBC (Bld) 2.6 % 0.0 - 6.0 % [facility] Erythrocyte distribution width (RBC) [Ratio] 14.5 % 11.5 - 15.0 % [facility] Hematocrit (Bld) [Volume fraction] 26.3 % Low 35.0 - 47.0 % [facility] Hemoglobin (Bld) [Mass/Vol] 8.6 g/dL Low 11.7 - 16.0 g/dL [facility] Immature granulocytes (Bld) [#/Vol] 0.0 10*3/uL NINF - 0.1 10*3/uL [facility] Immature granulocytes/100 WBC (Bld) 0.2 % 0.0 - 2.0 % [facility] Interpretation and review of laboratory results Abnormal [facility] Lymphocytes (Bld) [#/Vol] 1.4 10*3/uL 1.0 - 4.3 10*3/uL [facility] Lymphocytes/100 WBC (Bld) 33.5 % 15.0 - 45.0 % [facility] MCH (RBC) [Entitic mass] 29.8 pg 26.0 - 34.0 pg [facility] MCHC (RBC) [Mass/Vol] 32.7 % 30.5 - 36.0 % [facility] MCV (RBC) [Entitic vol] 91.0 fL 77.0 - 99.0 fL [facility] Monocytes (Bld) [#/Vol] 0.5 10*3/uL 0.0 - 0.9 10*3/uL [facility] Monocytes/100 WBC (Bld) 11.3 % 5.0 - 13.0 % [facility] Neutrophils (Bld) [#/Vol] 2.2 10*3/uL 1.8 - 7.5 10*3/uL [facility] Neutrophils/100 WBC (Bld) 51.7 % 38.0 - 82.0 % [facility] Nucleated RBC/100 WBC (Bld) [Ratio] 0.0 % [facility] Platelet mean volume (Bld) [Entitic vol] 9.4 fL 9.0 - 12.7 fL [facility] Platelets (Bld) [#/Vol] 317 10*3/uL 140 - 440 10*3/uL [facility] RBC (Bld) [#/Vol] 2.89 10*6/uL Low 3.80 - 5.2 0 10*6/uL [facility] WBC (Bld) [#/Vol] 4.2 10*3/uL 3.6 - 10.7 10*3/uL [facility] CBC WITH AUTO DIFFERENTIALon 04-13-2024 Basophils (Bld) [#/Vol] 0.0 10*3/uL Normal 0.0-0.2 [facility] Comment on above: Performed By: #### L [id number] ####Improvement Auditor: VELMA VALADEZ ([phone])[facility])[address] [place] [address] Basophils/100 WBC (Bld) 0.7 % Normal 0.0-2.0 [facility] Comment on above: Performed By: #### L [id number] ####Improvement Auditor: VELMA VALADEZ ([id number])[facility])[address] [place] [address] Eosinophils (Bld) [#/Vol] 0.1 10*3/uL Normal 0.0-0.5 [facility] Comment on above: Performed By: #### L [id number] ####Improvement Auditor: VELMA VALADEZ ([id number])[facility])[address] [place] [address] Eosinophils/100 WBC (Bld) 2.6 % Normal 0.0-6.0 [facility] Comment on above: Performed By: #### L [id number] ####Improvement Auditor: VELMA VALADEZ ([id number])[facility])[address] [place] [address] Erythrocyte distribution width (RBC) [Ratio] 14.5 % Normal 11.5-15.0 [facility] Comment on above: Performed By: #### L [id number] ####Improvement Auditor: VELMA VALADEZ ([id number])[facility])[address] [place] [address] Hematocrit (Bld) [Volume fraction] 26.3 % Low 35.0-47.0 [facility] Comment on above: Performed By: #### L [id number] ####Improvement Auditor: VELMA VALADEZ ([id number])[facility])[address] [place] [address] Hemoglobin (Bld) [Mass/Vol] 8.6 g/dL Low 11.7-16.0 [facility] Comment on above: Performed By: #### L [id number] ####Improvement Auditor: VELMA VALADEZ ([id number])[facility])[address] [place] [address] IMMATURE GRANS % 0.2 % Normal 0.0-2.0 [facility] Comment on above: Performed By: #### L [id number] ####Improvement Auditor: VELMA VALADEZ ([id number])[facility])[address] [place] [address] IMMATURE GRANS ABSOLUTE 0.0 10*3/uL Normal <0.1 [facility] Comment on above: Performed By: #### L [id number] ####Improvement Auditor: VELMA VALADEZ ([id number])[facility])[address] [place] [address] Lymphocytes (Bld) [#/Vol] 1.4 10*3/uL Normal 1.0-4.3 [facility] Comment on above: Performed By: #### L [id number] ####Improvement Auditor: VELMA VALADEZ ([id number])[facility])[address] [place] [address] Lymphocytes/100 WBC (Bld) 33.5 % Normal 15.0-45.0 [facility] Comment on above: Performed By: #### L [id number] ####Improvement Auditor: VELMA VALADEZ ([id number])[facility])[address] [place] [address] MCH (RBC) [Entitic mass] 29.8 pg Normal 26.0-34.0 [facility] Comment on above: Performed By: #### L [id number] ####Improvement Auditor: VELMA VALADEZ ([id number])[facility])[address] [place] [address] MCHC 32.7 % Normal 30.5-36.0 [facility] Comment on above: Performed By: #### L [id number] ####Improvement Auditor: VELMA VALADEZ ([id number])[facility])[address] [place] [address] MCV (RBC) [Entitic vol] 91.0 fL Normal 77.0-99.0 [facility] Comment on above: Performed By: #### L [id number] ####Improvement Auditor: VELMA VALADEZ ([id number])[facility])[address] [place] [address] Monocytes (Bld) [#/Vol] 0.5 10*3/uL Normal 0.0-0.9 [facility] Comment on above: Performed By: #### L [id number] ####Improvement Auditor: VELMA VALADEZ ([id number])[facility])[address] [place] [address] Monocytes/100 WBC (Bld) 11.3 % Normal 5.0-13.0 [facility] Comment on above: Performed By: #### L [id number] ####Improvement Auditor: VELMA VALADEZ ([id number])[facility])[address] [place] [address] NEUTROPHILS ABSOLUTE 2.2 10*3/uL Normal 1.8-7.5 [facility] Comment on above: Performed By: #### L [id number] ####Improvement Auditor: VELMA VALADEZ ([id number])[facility])[address] [place] [address] Neutrophils/100 WBC (Bld) 51.7 % Normal 38.0-82.0 [facility] Comment on above: Performed By: #### L [id number] ####Improvement Auditor: VELMA VALADEZ ([id number])[facility])[address] [place] [address] NRBC 0.0 /100 WBCs Normal 0.0-2.0 [facility] Comment on above: Performed By: #### L [id number] ####Improvement Auditor: VELMA VALADEZ ([id number])[facility])[address] [place] [address] Platelet mean volume (Bld) [Entitic vol] 9.4 fL Normal 9.0-12.7 [facility] Comment on above: Performed By: #### L [id number] ####Improvement Auditor: VELMA VALADEZ ([id number])[facility])[address] [place] [address] Platelets (Bld) [#/Vol] 317 10*3/uL Normal 140-440 [facility] Comment on above: Performed By: #### L [id number] ####Improvement Auditor: VELMA VALADEZ ([id number])[facility])[address] [place] [address] RBC (Bld) [#/Vol] 2.89 10*6/uL Low 3.80-5.20 [facility] Comment on above: Performed By: #### L [id number] ####Improvement Auditor: VELMA VALADEZ ([id number])[facility])[address] [place] [address] WBC (Bld) [#/Vol] 4.2 10*3/uL Normal 3.6-10.7 [facility] Comment on above: Performed By: #### L [id number] ####Improvement Auditor: VELMA VALADEZ ([phone])[facility])[address] [place] [address] IDNon 04-13-2024 IDN Normal [facility] Laboratory - Coagulationon 0 04-13-2024 PT Coag (Bld) [Time] 24.2 s High 9.0 - 1 2.0 s [facility] Nursing Noteon 04-13-2024 Nursing Note AVS explained. Discharged patient on stable condition. Normal [facility] Nursing Note Instructed patient o n warfarin dosing, she will take 7.5mg tomorrow, and 5mg Tuesday, and then we will check INR with home care on Tuesday as instructed. Normal [facility] PROTHROMBIN TIMEon INR Coag (PPP) [Relative time] 2.3 {INR} High 0.9-1.1 [facility] Comment on above: Result Comment: Timothy mmended Anticoagulant Therapy: SEE BELOW----- INR of 2.0 - 3.0 : - Prophylaxis of Venous Thrombosis (high-risk surgery) - Treatment of Venous Thrombosis - Treatment of Pulmonary Embolism (Includes tissue heart valves, Acute Myocardial Infarction to prevent systemic embolism, Valvular Heart Disease, and Atrial Fibrillation)----- INR of 2.5 - 3.5 : - Mechanical Prosthetic Valves (high risk) - If oral anticoagulant therapy is used to prevent Myocardial Infarction Performed By: #### Weston AB320, [id number] ####Improvement Auditor: VELMA VALADEZ ([id number])[facility] [place] [address] PT Coag (PPP) [Time] 24.2 s High 9.0-12.0 [facility] Comment on above: Performed By: #### Weston AB320, [id number] ####Improvement Auditor: VELMA VALADEZ ([phone])[facility] [place] [address] PT Coag (Bld) [Time]on 04-13 INR Coag (PPP) [Relative time] 2.3 {INR} High 0.9 - 1.1 [facility] Comment on above: Recommended Anticoag ulant Therapy: SEE BELOW ----- INR of 2.0 - 3.0 : - Prophylaxis of Venous Thrombosis (high-risk surgery) - Treatment of Venous Thrombosis - Treatment of Pulmonary Embolism (Includes tissue heart valves, Acute Myocardial Infarction to prevent systemic embolism, Valvular Heart Disease, and Atrial Fibrillation) ----- INR of 2.5 - 3.5 : - Mechanical Prosthetic Valves (high risk) - If oral anticoagulant therapy is used to prevent Myocardial Infarction Interpretation and review of laboratory results Abnormal [facility] Progress Noteon 04-13-2024 Progress Note Normal [facility] Progress Note Normal [facility] Progress Note Normal [facility] aPTT Coag (Bld) [Time]Lissettee d By: Melany Tejeda on 04-13-2024 aPTT Coag (PPP) [Time] 132.2 s Critically high 20 .0 - 30.5 s [facility] Interpretation and review of laboratory results Abnormal [facility] NOTE: The therapeuti c time for Heparin anticoagulation, based on Xa activity inhibition, is an APTT of 46-80 seconds. [facility] BASIC METABOLIC PANELon 03-19 Anion gap [Moles/Vol] 3 mmol/L Normal 3-13 [facility] Comment on above: Performed By: #### L AB15 ####Improvement Auditor: VELMA VALADEZ ([phone])[facility])[address] [place] [address] Calcium [Mass/Vol] 9.3 mg/dL Normal 8.4-10.4 [facility] Comment on above: Performed By: #### L AB15 ####Improvement Auditor: VELMA VALADEZ ([id number])[facility])[address] [place] [address] Chloride [Moles/Vol] 108 mmol/L High 98-107 [facility] Comment on above: Performed By: #### L AB15 ####Improvement Auditor: VELMA VALADEZ ([id number])[facility])[address] [place] [address] [place] CO2 [Moles/Vol] 24 mmol/L Normal 22-30 [facility] Comment on above: Performed By: #### L AB15 ####Improvement Auditor: VELMA VALADEZ ([id number])[facility])[address] [place] [address] Creatinine [Mass/Vol] 0.99 mg/dL Normal 0.52-1.04 [facility] Comment on above: Performed By: #### L AB15 ####Improvement Auditor: VELMA [id number])[facility])[address] [place] [address] GLOMERULAR FILTRATION RATE ML/MIN/1.73 SQ M.PREDICTED 56.3 mL/min/1.73m*2 Low >60.0 [facility] Comment on above: Result Comment: Calc ulation based on the Chronic Kidney Disease Epidemiology Collaboration (CKD-EPI) equation refit without adjustment for race Performed By: #### L AB15 ####Improvement Auditor: VELMA VALADEZ ([phone])[facility])[address] [place] [address] Glucose [Mass/Vol] 101 mg/dL High 70-100 [facility] Comment on above: Performed By: #### L AB15 ####Improvement Auditor: VELMA VALADEZ ([id number])[facility])[address] [place] [address] Potassium [Moles/Vol] 3.9 mmol/L Normal 3.5-5.1 [facility] Comment on above: Performed By: #### L AB15 ####Improvement Auditor: VELMA VALADEZ ([id number])[facility])[address] [place] [address] Sodium [Moles/Vol] 135 mmol/L Normal 135-145 [facility] Comment on above: Performed By: #### L AB15 ####Improvement Auditor: VELMA VALADEZ ([phone])[facility])[address] [place] [address] Urea nitrogen [Mass/Vol] 16 mg/dL Normal 7-17 [facility] Comment on above: Performed By: #### L AB15 ####Improvement Auditor: VELMA VALADEZ ([id number])[facility])[address] [place] [address] Basic metabolic 1998 panelon 04-12-2024 Anion gap [Moles/Vol] 3 mmol/L 3 - 13 mmol/L [facility] Calcium [Mass/Vol] 9.3 mg/dL 8.4 - 10. 4 mg/dL [facility] Chloride [Moles/Vol] 108 mmol/L High 98 - 10 7 mmol/L [facility] CO2 [Moles/Vol] 24 mmol/L 22 - 30 mmol/L [facility] Creatinine [Mass/Vol] 0.99 mg/dL 0.52 - 1.04 mg/dL [facility] GFR/1.73 sq M.predicted (S/P/Bld) [Vol rate/Area] 56.3 mL/min Low - PINF [facility] Comment on above: Calculation based on the Chronic Kidney Disease Epidemiology Collaboration (CKD-EPI) equation refit without adjustment for race Glucose [Mass/Vol] 101 mg/dL High 70 - 100 mg/dL [facility] Interpretation and review of laboratory results Abnormal [facility] Potassium [Moles/Vol] 3.9 mmol/L 3.5 - 5.1 mmol/L [facility] Sodium [Moles/Vol] 135 mmol/L 135 - 145 mmol/L [facility] Urea nitrogen [Mass/Vol] 16 mg/dL 7 - 17 mg/dL [facility] CARECOORDon 04-12-2024 CARECOORD Normal [facility] CBC W Auto Differential pane l (Bld)on 04-12-2024 Basophils (Bld) [#/Vol] 0.0 10*3/uL 0.0 - 0.2 10*3/uL [facility] Basophils/100 WBC (Bld) 0.5 % 0.0 - 2.0 % [facility] Eosinophils (Bld) [#/Vol] 0.1 10*3/uL 0.0 - 0.5 10*3/uL [facility] Eosinophils/100 WBC (Bld) 2.4 % 0.0 - 6.0 % [facility] Erythrocyte distribution width (RBC) [Ratio] 14.8 % 11.5 - 15.0 % [facility] Hematocrit (Bld) [Volume fraction] 28.3 % Low 35.0 - 47.0 % [facility] Hemoglobin (Bld) [Mass/Vol] 9.3 g/dL Low 11.7 - 16.0 g/dL [facility] Immature granulocytes (Bld) [#/Vol] 0.0 10*3/uL NINF - 0.1 10*3/uL [facility] Immature granulocytes/100 WBC (Bld) 0.2 % 0.0 - 2.0 % [facility] Interpretation and review of laboratory results Abnormal [facility] Lymphocytes (Bld) [#/Vol] 1.4 10*3/uL 1.0 - 4.3 10*3/uL [facility] Lymphocytes/100 WBC (Bld) 33.0 % 15.0 - 45.0 % [facility] MCH (RBC) [Entitic mass] 30.4 pg 26.0 - 34.0 pg [facility] MCHC (RBC) [Mass/Vol] 32.9 % 30.5 - 36.0 % [facility] MCV (RBC) [Entitic vol] 92.5 fL 77.0 - 99.0 fL [facility] Monocytes (Bld) [#/Vol] 0.5 10*3/uL 0.0 - 0.9 10*3/uL [facility] Monocytes/100 WBC (Bld) 11.9 % 5.0 - 13.0 % [facility] Neutrophils (Bld) [#/Vol] 2.1 10*3/uL 1.8 - 7.5 10*3/uL [facility] Neutrophils/100 WBC (Bld) 52.0 % 38.0 - 82.0 % [facility] Nucleated RBC/100 WBC (Bld) [Ratio] 0.0 % [facility] Platelet mean volume (Bld) [Entitic vol] 9.5 fL 9.0 - 12.7 fL [facility] Platelets (Bld) [#/Vol] 307 10*3/uL 140 - 440 10*3/uL [facility] RBC (Bld) [#/Vol] 3.06 10*6/uL Low 3.80 - 5.2 0 10*6/uL [facility] WBC (Bld) [#/Vol] 4.1 10*3/uL 3.6 - 10.7 10*3/uL [facility] CBC WITH AUTO DIFFERENTIALon 04-12-2024 Basophils (Bld) [#/Vol] 0.0 10*3/uL Normal 0.0-0.2 [facility] Comment on above: Performed By: #### L [id number] ####Improvement Auditor: VELMA VALADEZ ([phone])[facility] ([address] Basophils/100 WBC (Bld) 0.5 % Normal 0.0-2.0 [facility] Comment on above: Performed By: #### L [id number] ####Improvement Auditor: VELMA VALADEZ ([phone])[facility])[address] [place] [address] Eosinophils (Bld) [#/Vol] 0.1 10*3/uL Normal 0.0-0.5 [facility] Comment on above: Performed By: #### L [id number] ####Improvement Auditor: VELMA VALADEZ ([phone])[facility])[address] [place] [address] Eosinophils/100 WBC (Bld) 2.4 % Normal 0.0-6.0 [facility] Comment on above: Performed By: #### L [id number] ####Improvement Auditor: VELMA VALADEZ ([phone])[facility])[address] [place] [address] Erythrocyte distribution width (RBC) [Ratio] 14.8 % Normal 11.5-15.0 [facility] Comment on above: Performed By: #### L [id number] ####Improvement Auditor: VELMA VALADEZ ([phone])[facility])[address] [place] [address] Hematocrit (Bld) [Volume fraction] 28.3 % Low 35.0-47.0 [facility] Comment on above: Performed By: #### L [id number] ####Improvement Auditor: VELMA VALADEZ ([phone])[facility])[address] [place] [address] Hemoglobin (Bld) [Mass/Vol] 9.3 g/dL Low 11.7-16.0 [facility] Comment on above: Performed By: #### L [id number] ####Improvement Auditor: VELMA VALADEZ ([phone])[facility])[address] [place] [address] IMMATURE GRANS % 0.2 % Normal 0.0-2.0 [facility] Comment on above: Performed By: #### L [id number] ####Improvement Auditor: VELMA VALADEZ ([id number])[facility])[address] [place] [address] IMMATURE GRANS ABSOLUTE 0.0 10*3/uL Normal <0.1 [facility] Comment on above: Performed By: #### L [id number] ####Improvement Auditor: VELMA VALADEZ ([phone])[facility])[address] [place] [address] Lymphocytes (Bld) [#/Vol] 1.4 10*3/uL Normal 1.0-4.3 [facility] Comment on above: Performed By: #### L [id number] ####Improvement Auditor: VELMA VALADEZ ([id number])[address] Lymphocytes/100 WBC (Bld) 33.0 % Normal 15.0-45.0 [facility] Comment on above: Performed By: #### L [id number] ####Improvement Auditor: VELMA VALADEZ ([phone])[facility])[address] [place] [address] MCH (RBC) [Entitic mass] 30.4 pg Normal 26.0-34.0 [facility] Comment on above: Performed By: #### L [id number] ####Improvement Auditor: VELMA VALADEZ ([phone])[facility])[address] [place] [address] MCHC 32.9 % Normal 30.5-36.0 [facility] Comment on above: Performed By: #### L [id number] ####Improvement Auditor: VELMA VALADEZ ([phone])[facility])[address] [place] [address] MCV (RBC) [Entitic vol] 92.5 fL Normal 77.0-99.0 [facility] Comment on above: Performed By: #### L [id number] ####Improvement Auditor: VELMA VALADEZ ([phone])[facility])[address] [place] [address] Monocytes (Bld) [#/Vol] 0.5 10*3/uL Normal 0.0-0.9 [facility] Comment on above: Performed By: #### L [id number] ####Improvement Auditor: VELMA VALADEZ ([phone])[facility] [place] [address] Monocytes/100 WBC (Bld) 11.9 % Normal 5.0-13.0 [facility] Comment on above: Performed By: #### L [id number] ####Improvement Auditor: VELMA VALADEZ ([phone])[facility] ([facility])[address] [place] [address] NEUTROPHILS ABSOLUTE 2.1 10*3/uL Normal 1.8-7.5 [facility] Comment on above: Performed By: #### L [id number] ####Improvement Auditor: VELMA VALADEZ ([phone])[facility] ([facility])[address] [place] [address] Neutrophils/100 WBC (Bld) 52.0 % Normal 38.0-82.0 [facility] Comment on above: Performed By: #### L [id number] ####Improvement Auditor: VELMA VALADEZ ([id number])[facility] ([facility])[address] [place] [address] NRBC 0.0 /100 WBCs Normal 0.0-2.0 [facility] Comment on above: Performed By: #### L [id number] ####Improvement Auditor: VELMA VALADEZ ([id number])[facility] ([facility])[address] [place] [address] Platelet mean volume (Bld) [Entitic vol] 9.5 fL Normal 9.0-12.7 [facility] Comment on above: Performed By: #### L [id number] ####Improvement Auditor: VELMA VALADEZ ([id number])[facility] [place] [address] Platelets (Bld) [#/Vol] 307 10*3/uL Normal 140-440 [facility] Comment on above: Performed By: #### L [id number] ####Improvement Auditor: VELMA VALADEZ ([phone])[facility])[address] [place] [address] RBC (Bld) [#/Vol] 3.06 10*6/uL Low 3.80-5.20 [facility] Comment on above: Performed By: #### L [id number] ####Improvement Auditor: VELMA VALADEZ ([phone])[facility])[address] [place] [address] WBC (Bld) [#/Vol] 4.1 10*3/uL Normal 3.6-10.7 [facility] Comment on above: Performed By: #### L [id number] ####Improvement Auditor: VELMA VALADEZ ([phone])[address] IDNon 04-12-2024 IDN Normal [facility] IDN Normal [facility] Laboratory - Coagulationon 0 04-12-2024 PT Coag (Bld) [Time] 20.3 s High 9.0 - 1 2.0 s [facility] PROTHROMBIN TIMEon INR Coag (PPP) [Relative time] 1.9 {INR} High 0.9-1.1 [facility] Comment on above: Result Comment: Timothy mmended Anticoagulant Therapy: SEE BELOW----- INR of 2.0 - 3.0 : - Prophylaxis of Venous Thrombosis (high-risk surgery) - Treatment of Venous Thrombosis - Treatment of Pulmonary Embolism (Includes tissue heart valves, Acute Myocardial Infarction to prevent systemic embolism, Valvular Heart Disease, and Atrial Fibrillation)----- INR of 2.5 - 3.5 : - Mechanical Prosthetic Valves (high risk) - If oral anticoagulant therapy is used to prevent Myocardial Infarction Performed By: #### L [id number] ####Improvement Auditor: VELMA VALADEZ ([phone])[facility])[address] [place] [address] PT Coag (PPP) [Time] 20.3 s High 9.0-12.0 [facility] Comment on above: Performed By: #### L [id number] ####Improvement Auditor: VELMA VALADEZ ([phone])[facility] [place] [address] PT Coag (Bld) [Time]on 04-12 INR Coag (PPP) [Relative time] 1.9 {INR} High 0.9 - 1.1 [facility] Comment on above: Recommended Anticoag ulant Therapy: SEE BELOW ----- INR of 2.0 - 3.0 : - Prophylaxis of Venous Thrombosis (high-risk surgery) - Treatment of Venous Thrombosis - Treatment of Pulmonary Embolism (Includes tissue heart valves, Acute Myocardial Infarction to prevent systemic embolism, Valvular Heart Disease, and Atrial Fibrillation) ----- INR of 2.5 - 3.5 : - Mechanical Prosthetic Valves (high risk) - If oral anticoagulant therapy is used to prevent Myocardial Infarction Interpretation and review of laboratory results Abnormal [facility] Progress Noteon 04-12-2024 Progress Note Normal [facility] Progress Note Normal [facility] APTTon 04-11-2024 aPTT Coag (Bld) [Time] 62.7 s High 20.0-30.5 [facility] Comment on above: Result Comment: BUBBA Garcia COMMENTS:NOTE: The therapeutic time for Heparin anticoagulation, based on Xa activity inhibition, is an APTT of 46-80 seconds. Performed By: #### L [id number] ####Improvement Auditor: VELMA VALADEZ ([id number])[facility] ([facility])[address] [place] [address] aPTT Coag (Bld) [Time] 69.0 s High 20.0-30.5 [facility] Comment on above: Result Comment: BUBBA Garcia COMMENTS:NOTE: The therapeutic time for Heparin anticoagulation, based on Xa activity inhibition, is an APTT of 46-80 seconds. Performed By: #### L AB320, [id number] ####Improvement Auditor: VELMA VALADEZ ([phone])[facility] [place] [address] BASIC METABOLIC PANELon 09-2 Anion gap [Moles/Vol] 4 mmol/L Normal 3-13 [facility] Comment on above: Performed By: #### L AB15 ####Improvement Auditor: VELMA VALADEZ ([phone])[facility])[address] [place] [address] Calcium [Mass/Vol] 8.8 mg/dL Normal 8.4-10.4 [facility] Comment on above: Performed By: #### L AB15 ####Improvement Auditor: VELMA VALADEZ ([phone])[facility])[address] [place] [address] Chloride [Moles/Vol] 108 mmol/L High 98-107 [facility] Comment on above: Performed By: #### L AB15 ####Improvement Auditor: VELMA VALADEZ ([id number])[facility] [place] [address] CO2 [Moles/Vol] 22 mmol/L Normal 22-30 [facility] Comment on above: Performed By: #### L AB15 ####Improvement Auditor: VELMA VALADEZ ([id number])[facility] ([facility])[address] [place] [address] Creatinine [Mass/Vol] 1.01 mg/dL Normal 0.52-1.04 [facility] Comment on above: Performed By: #### L AB15 ####Improvement Auditor: VELMA VALADEZ ([phone])[facility] ([facility])[address] [place] [address] GLOMERULAR FILTRATION RATE ML/MIN/1.73 SQ M.PREDICTED 55.0 mL/min/1.73m*2 Low >60.0 [facility] Comment on above: Result Comment: Calc ulation based on the Chronic Kidney Disease Epidemiology Collaboration (CKD-EPI) equation refit without adjustment for race Performed By: #### L AB15 ####Improvement Auditor: VELMA VALADEZ ([phone])[facility] [place] [address] [place] Glucose [Mass/Vol] 112 mg/dL High 70-100 [facility] Comment on above: Performed By: #### L AB15 ####Improvement Auditor: VELMA VALADEZ ([id number])[facility])[address] [place] [address] Potassium [Moles/Vol] 4.0 mmol/L Normal 3.5-5.1 [facility] Comment on above: Performed By: #### L AB15 ####Improvement Auditor: VELMA VALADEZ ([id number])[facility] ([facility])[address] [place] [address] [place] Sodium [Moles/Vol] 134 mmol/L Low 135-145 [facility] Comment on above: Performed By: #### L AB15 ####Improvement Auditor: VELMA VALADEZ ([id number])[facility] ([facility])[address] [place] [address] Urea nitrogen [Mass/Vol] 16 mg/dL Normal 7-17 [facility] Comment on above: Performed By: #### L AB15 ####Improvement Auditor: VELMA VALADEZ ([phone])[facility] ([facility])[address] [place] [address] Basic metabolic 1998 panelon 04-11-2024 Anion gap [Moles/Vol] 4 mmol/L 3 - 13 mmol/L [facility] Calcium [Mass/Vol] 8.8 mg/dL 8.4 - 10. 4 mg/dL [facility] Chloride [Moles/Vol] 108 mmol/L High 98 - 10 7 mmol/L [facility] CO2 [Moles/Vol] 22 mmol/L 22 - 30 mmol/L [facility] Creatinine [Mass/Vol] 1.01 mg/dL 0.52 - 1.04 mg/dL [facility] GFR/1.73 sq M.predicted (S/P/Bld) [Vol rate/Area] 55.0 mL/min Low - PINF [facility] Comment on above: Calculation based on the Chronic Kidney Disease Epidemiology Collaboration (CKD-EPI) equation refit without adjustment for race Glucose [Mass/Vol] 112 mg/dL High 70 - 100 mg/dL [facility] Interpretation and review of laboratory results Abnormal [facility] Potassium [Moles/Vol] 4.0 mmol/L 3.5 - 5.1 mmol/L [facility] Sodium [Moles/Vol] 134 mmol/L Low 135 - 145 mmol/L [facility] Urea nitrogen [Mass/Vol] 16 mg/dL 7 - 17 mg/dL [facility] CARECOORDon 04-11-2024 CARECOORD Normal [facility] CBC W Auto Differential pane l (Bld)on 04-11-2024 Basophils (Bld) [#/Vol] 0.0 10*3/uL 0.0 - 0.2 10*3/uL [facility] Basophils/100 WBC (Bld) 0.9 % 0.0 - 2.0 % [facility] Eosinophils (Bld) [#/Vol] 0.1 10*3/uL 0.0 - 0.5 10*3/uL [facility] Eosinophils/100 WBC (Bld) 2.0 % 0.0 - 6.0 % [facility] Erythrocyte distribution width (RBC) [Ratio] 14.8 % 11.5 - 15.0 % [facility] Hematocrit (Bld) [Volume fraction] 24.6 % Low 35.0 - 47.0 % [facility] Hemoglobin (Bld) [Mass/Vol] 8.3 g/dL Low 11.7 - 16.0 g/dL [facility] Immature granulocytes (Bld) [#/Vol] 0.0 10*3/uL NINF - 0.1 10*3/uL [facility] Immature granulocytes/100 WBC (Bld) 0.2 % 0.0 - 2.0 % [facility] Interpretation and review of laboratory results Abnormal [facility] Lymphocytes (Bld) [#/Vol] 1.4 10*3/uL 1.0 - 4.3 10*3/uL [facility] Lymphocytes/100 WBC (Bld) 31.9 % 15.0 - 45.0 % [facility] MCH (RBC) [Entitic mass] 30.5 pg 26.0 - 34.0 pg [facility] MCHC (RBC) [Mass/Vol] 33.7 % 30.5 - 36.0 % [facility] MCV (RBC) [Entitic vol] 90.4 fL 77.0 - 99.0 fL [facility] Monocytes (Bld) [#/Vol] 0.5 10*3/uL 0.0 - 0.9 10*3/uL [facility] Monocytes/100 WBC (Bld) 11.2 % 5.0 - 13.0 % [facility] Neutrophils (Bld) [#/Vol] 2.4 10*3/uL 1.8 - 7.5 10*3/uL [facility] Neutrophils/100 WBC (Bld) 53.8 % 38.0 - 82.0 % [facility] Nucleated RBC/100 WBC (Bld) [Ratio] 0.0 % [facility] Platelet mean volume (Bld) [Entitic vol] 10.0 fL 9.0 - 12.7 fL [facility] Platelets (Bld) [#/Vol] 244 10*3/uL 140 - 440 10*3/uL [facility] RBC (Bld) [#/Vol] 2.72 10*6/uL Low 3.80 - 5.2 0 10*6/uL [facility] WBC (Bld) [#/Vol] 4.5 10*3/uL 3.6 - 10.7 10*3/uL [facility] CBC WITH AUTO DIFFERENTIALon 04-11-2024 Basophils (Bld) [#/Vol] 0.0 10*3/uL Normal 0.0-0.2 [facility] Comment on above: Performed By: #### L [id number] ####Improvement Auditor: VELMA VALADEZ ([phone])[address] Basophils/100 WBC (Bld) 0.9 % Normal 0.0-2.0 [facility] Comment on above: Performed By: #### L [id number] ####Improvement Auditor: VELMA [id number])[facility] ([facility])[address] [place] [address] Eosinophils (Bld) [#/Vol] 0.1 10*3/uL Normal 0.0-0.5 [facility] Comment on above: Performed By: #### L [id number] ####Improvement Auditor: VELMA [id number])[facility] [address] Eosinophils/100 WBC (Bld) 2.0 % Normal 0.0-6.0 [facility] Comment on above: Performed By: #### L [id number] ####Improvement Auditor: VELMA VALADEZ ([phone])[facility])[address] [place] [address] Erythrocyte distribution width (RBC) [Ratio] 14.8 % Normal 11.5-15.0 [facility] Comment on above: Performed By: #### L [id number] ####Improvement Auditor: VELMA VALADEZ ([phone])[address] Hematocrit (Bld) [Volume fraction] 24.6 % Low 35.0-47.0 [facility] Comment on above: Performed By: #### L [id number] ####Improvement Auditor: VELMA VALADEZ ([phone])[facility])[address] [place] [address] Hemoglobin (Bld) [Mass/Vol] 8.3 g/dL Low 11.7-16.0 [facility] Comment on above: Performed By: #### L [id number] ####Improvement Auditor: VELMA VALADEZ ([phone])[facility])[address] [place] [address] IMMATURE GRANS % 0.2 % Normal 0.0-2.0 [facility] Comment on above: Performed By: #### L [id number] ####Improvement Auditor: VELMA VALADEZ ([phone])[facility])[address] [place] [address] IMMATURE GRANS ABSOLUTE 0.0 10*3/uL Normal <0.1 [facility] Comment on above: Performed By: #### L [id number] ####Improvement Auditor: VELMA VALADEZ ([phone])[facility])[address] [place] [address] Lymphocytes (Bld) [#/Vol] 1.4 10*3/uL Normal 1.0-4.3 [facility] Comment on above: Performed By: #### L [id number] ####Improvement Auditor: VELMA VALADEZ ([id number])[facility])[address] [place] [address] Lymphocytes/100 WBC (Bld) 31.9 % Normal 15.0-45.0 [facility] Comment on above: Performed By: #### L [id number] ####Improvement Auditor: VELMA VALADEZ ([phone])[facility] ([facility])[address] [place] [address] MCH (RBC) [Entitic mass] 30.5 pg Normal 26.0-34.0 [facility] Comment on above: Performed By: #### L [id number] ####Improvement Auditor: VELMA VALADEZ ([phone])[facility])[address] [place] [address] MCHC 33.7 % Normal 30.5-36.0 [facility] Comment on above: Performed By: #### L [id number] ####Improvement Auditor: VELMA VALADEZ ([phone])[facility])[address] [place] [address] MCV (RBC) [Entitic vol] 90.4 fL Normal 77.0-99.0 [facility] Comment on above: Performed By: #### L [id number] ####Improvement Auditor: VELMA VALADEZ ([phone])[facility])[address] [place] [address] Monocytes (Bld) [#/Vol] 0.5 10*3/uL Normal 0.0-0.9 [facility] Comment on above: Performed By: #### L [id number] ####Improvement Auditor: VELMA VALADEZ ([phone])[facility])[address] [place] [address] Monocytes/100 WBC (Bld) 11.2 % Normal 5.0-13.0 [facility] Comment on above: Performed By: #### L [id number] ####Improvement Auditor: VELMA VALADEZ ([id number])[facility] ([facility])[address] [place] [address] NEUTROPHILS ABSOLUTE 2.4 10*3/uL Normal 1.8-7.5 [facility] Comment on above: Performed By: #### L [id number] ####Improvement Auditor: VELMA VALADEZ ([phone])[facility])[address] [place] [address] Neutrophils/100 WBC (Bld) 53.8 % Normal 38.0-82.0 [facility] Comment on above: Performed By: #### L [id number] ####Improvement Auditor: VELMA VALADEZ ([phone])[facility])[address] [place] [address] NRBC 0.0 /100 WBCs Normal 0.0-2.0 [facility] Comment on above: Performed By: #### L [id number] ####Improvement Auditor: VELMA VALADEZ ([id number])[facility] ([facility])[address] [place] [address] Platelet mean volume (Bld) [Entitic vol] 10.0 fL Normal 9.0-12.7 [facility] Comment on above: Performed By: #### L [id number] ####Improvement Auditor: VELMA VALADEZ ([phone])[facility] ([facility])[address] [place] [address] Platelets (Bld) [#/Vol] 244 10*3/uL Normal 140-440 [facility] Comment on above: Performed By: #### L [id number] ####Improvement Auditor: VELMA VALADZE ([phone])[facility] ([facility])[address] [place] [address] RBC (Bld) [#/Vol] 2.72 10*6/uL Low 3.80-5.20 [facility] Comment on above: Performed By: #### L [id number] ####Improvement Auditor: VELMA VALADEZ ([phone])[facility] ([facility])[address] [place] [address] [place] WBC (Bld) [#/Vol] 4.5 10*3/uL Normal 3.6-10.7 [facility] Comment on above: Performed By: #### Weston [id number] ####Improvement Auditor: VELMA VALADEZ ([id number])[facility] ([facility])[address] [place] [address] [place] IDNon 04-11-2024 IDN Normal [facility] IDN Normal [facility] Laboratory - Coagulationon 0 04-11-2024 PT Coag (Bld) [Time] 20.9 s High 9.0 - 1 2.0 s [facility] No Panel Informationon 04-11 Interpretation and review of laboratory results Abnormal [facility] PROTHROMBIN TIMEon INR Coag (PPP) [Relative time] 1.9 {INR} High 0.9-1.1 [facility] Comment on above: Result Comment: Timothy mmended Anticoagulant Therapy: SEE BELOW----- INR of 2.0 - 3.0 : - Prophylaxis of Venous Thrombosis (high-risk surgery) - Treatment of Venous Thrombosis - Treatment of Pulmonary Embolism (Includes tissue heart valves, Acute Myocardial Infarction to prevent systemic embolism, Valvular Heart Disease, and Atrial Fibrillation)----- INR of 2.5 - 3.5 : - Mechanical Prosthetic Valves (high risk) - If oral anticoagulant therapy is used to prevent Myocardial Infarction Performed By: #### Weston AB320, [id number] ####Improvement Auditor: VELMA VALADEZ ([id number])[facility] ([facility])[address] [place] [address] [place] PT Coag (PPP) [Time] 20.9 s High 9.0-12.0 [facility] Comment on above: Performed By: #### Weston AB320, [id number] ####Improvement Auditor: VELMA VALADEZ ([phone])[facility] ([facility])[address] [place] [address] [place] PT Coag (Bld) [Time]on 04-11 INR Coag (PPP) [Relative time] 1.9 {INR} High 0.9 - 1.1 [facility] Comment on above: Recommended Anticoag ulant Therapy: SEE BELOW ----- INR of 2.0 - 3.0 : - Prophylaxis of Venous Thrombosis (high-risk surgery) - Treatment of Venous Thrombosis - Treatment of Pulmonary Embolism (Includes tissue heart valves, Acute Myocardial Infarction to prevent systemic embolism, Valvular Heart Disease, and Atrial Fibrillation) ----- INR of 2.5 - 3.5 : - Mechanical Prosthetic Valves (high risk) - If oral anticoagulant therapy is used to prevent Myocardial Infarction Progress Noteon 04-11-2024 Progress Note Normal [facility] InterviewBestt h System [facility] Progress [facility] Progress Note Normal [facility] aPTT Coag (Bld) [Time]on aPTT Coag (PPP) [Time] 62.7 s High 20.0 - 30.5 s [facility] Interpretation and review of laboratory results Abnormal [facility] NOTE: The therapeuti c time for Heparin anticoagulation, based on Xa activity inhibition, is an APTT of 46-80 seconds. [facility] aPTT Coag (PPP) [Time] 69.0 s High 20.0 - 30.5 s [facility] NOTE: The therapeuti c time for Heparin anticoagulation, based on Xa activity inhibition, is an APTT of 46-80 seconds. [facility] APTTon 04-10-2024 aPTT Coag (Bld) [Time] 59.0 s High 20.0-30.5 [facility] Comment on above: Result Comment: BUBBA Garcia COMMENTS:NOTE: The therapeutic time for Heparin anticoagulation, based on Xa activity inhibition, is an APTT of 46-80 seconds. Performed By: #### L [id number] ####Improvement Auditor: VELMA VALADEZ ([phone])[address] aPTT Coag (Bld) [Time] 77.3 s High 20.0-30.5 [facility] Comment on above: Result Comment: BUBBA Garcia COMMENTS:NOTE: The therapeutic time for Heparin anticoagulation, based on Xa activity inhibition, is an APTT of 46-80 seconds. Performed By: #### L [id number], [id number] ####Improvement Auditor: VELMA VALADEZ ([phone])[facility])[address] [place] [address] BASIC METABOLIC PANELon 03-19 Anion gap [Moles/Vol] 3 mmol/L Normal 3-13 [facility] Comment on above: Performed By: #### L [id number] ####Improvement Auditor: VELMA VALADEZ ([phone])[facility] [facility])[address] [place] [address] Calcium [Mass/Vol] 9.0 mg/dL Normal 8.4-10.4 [facility] Comment on above: Performed By: #### L [id number] ####Improvement Auditor: VELMA VALADEZ ([phone])[facility])[address] [place] [address] Chloride [Moles/Vol] 111 mmol/L High 98-107 [facility] Comment on above: Performed By: #### L AB15 ####Improvement Auditor: VELMA VALADEZ ([phone])[facility] [place] [address] CO2 [Moles/Vol] 21 mmol/L Low 22-30 [facility] Comment on above: Performed By: #### L AB15 ####Improvement Auditor: EVLMA VALADEZ ([phone])[facility])[address] [place] [address] Creatinine [Mass/Vol] 1.00 mg/dL Normal 0.52-1.04 [facility] Comment on above: Performed By: #### L AB15 ####Improvement Auditor: VELMA VALADEZ ([phone])[facility] ([facility])[address] [place] [address] [place] GLOMERULAR FILTRATION RATE ML/MIN/1.73 SQ M.PREDICTED 55.7 mL/min/1.73m*2 Low >60.0 [facility] Comment on above: Result Comment: Calc ulation based on the Chronic Kidney Disease Epidemiology Collaboration (CKD-EPI) equation refit without adjustment for race Performed By: #### L AB15 ####Improvement Auditor: VELMA VALADEZ ([phone])[facility])[address] [place] [address] Glucose [Mass/Vol] 101 mg/dL High 70-100 [facility] Comment on above: Performed By: #### L AB15 ####Improvement Auditor: VELMA VALADEZ ([phone])[facility])[address] [place] [address] Potassium [Moles/Vol] 3.8 mmol/L Normal 3.5-5.1 [facility] Comment on above: Performed By: #### L AB15 ####Improvement Auditor: VELMA VALADEZ ([id number])[facility])[address] [place] [address] Sodium [Moles/Vol] 136 mmol/L Normal 135-145 [facility] Comment on above: Performed By: #### L AB15 ####Improvement Auditor: VELMA VALADEZ ([phone])[facility])[address] [place] [address] Urea nitrogen [Mass/Vol] 15 mg/dL Normal 7-17 [facility] Comment on above: Performed By: #### L AB15 ####Improvement Auditor: VELMA VALADEZ ([phone])[facility])[address] [place] [address] Basic metabolic 1998 panelon 04-10-2024 Anion gap [Moles/Vol] 3 mmol/L 3 - 13 mmol/L [facility] Calcium [Mass/Vol] 9.0 mg/dL 8.4 - 10. 4 mg/dL [facility] Chloride [Moles/Vol] 111 mmol/L High 98 - 10 7 mmol/L [facility] CO2 [Moles/Vol] 21 mmol/L Low 22 - 30 mmol/L [facility] Creatinine [Mass/Vol] 1.00 mg/dL 0.52 - 1.04 mg/dL [facility] GFR/1.73 sq M.predicted (S/P/Bld) [Vol rate/Area] 55.7 mL/min Low - PINF [facility] Comment on above: Calculation based on the Chronic Kidney Disease Epidemiology Collaboration (CKD-EPI) equation refit without adjustment for race Glucose [Mass/Vol] 101 mg/dL High 70 - 100 mg/dL [facility] Interpretation and review of laboratory results Abnormal [facility] Potassium [Moles/Vol] 3.8 mmol/L 3.5 - 5.1 mmol/L [facility] Sodium [Moles/Vol] 136 mmol/L 135 - 145 mmol/L [facility] Urea nitrogen [Mass/Vol] 15 mg/dL 7 - 17 mg/dL [facility] CARECOORDon 04-10-2024 [facility] Normal [facility] CBC W Auto Differential pane l (Bld)on 04-10-2024 Basophils (Bld) [#/Vol] 0.0 10*3/uL 0.0 - 0.2 10*3/uL [facility] Basophils/100 WBC (Bld) 0.7 % 0.0 - 2.0 % [facility] Eosinophils (Bld) [#/Vol] 0.1 10*3/uL 0.0 - 0.5 10*3/uL [facility] Eosinophils/100 WBC (Bld) 2.1 % 0.0 - 6.0 % [facility] Erythrocyte distribution width (RBC) [Ratio] 14.7 % 11.5 - 15.0 % [facility] Hematocrit (Bld) [Volume fraction] 26.0 % Low 35.0 - 47.0 % [facility] Hemoglobin (Bld) [Mass/Vol] 8.6 g/dL Low 11.7 - 16.0 g/dL [facility] Immature granulocytes (Bld) [#/Vol] 0.0 10*3/uL NINF - 0.1 10*3/uL [facility] Immature granulocytes/100 WBC (Bld) 0.2 % 0.0 - 2.0 % [facility] Interpretation and review of laboratory results Abnormal [facility] Lymphocytes (Bld) [#/Vol] 1.4 10*3/uL 1.0 - 4.3 10*3/uL [facility] Lymphocytes/100 WBC (Bld) 32.9 % 15.0 - 45.0 % [facility] MCH (RBC) [Entitic mass] 30.1 pg 26.0 - 34.0 pg [facility] MCHC (RBC) [Mass/Vol] 33.1 % 30.5 - 36.0 % [facility] MCV (RBC) [Entitic vol] 90.9 fL 77.0 - 99.0 fL [facility] Monocytes (Bld) [#/Vol] 0.6 10*3/uL 0.0 - 0.9 10*3/uL [facility] Monocytes/100 WBC (Bld) 13.6 % High 5.0 - 13.0 % [facility] Neutrophils (Bld) [#/Vol] 2.1 10*3/uL 1.8 - 7.5 10*3/uL [facility] Neutrophils/100 WBC (Bld) 50.5 % 38.0 - 82.0 % [facility] Nucleated RBC/100 WBC (Bld) [Ratio] 0.0 % [facility] Platelet mean volume (Bld) [Entitic vol] 10.0 fL 9.0 - 12.7 fL [facility] Platelets (Bld) [#/Vol] 238 10*3/uL 140 - 440 10*3/uL [facility] RBC (Bld) [#/Vol] 2.86 10*6/uL Low 3.80 - 5.2 0 10*6/uL [facility] WBC (Bld) [#/Vol] 4.3 10*3/uL 3.6 - 10.7 10*3/uL [facility] CBC WITH AUTO DIFFERENTIALon 04-10-2024 Basophils (Bld) [#/Vol] 0.0 10*3/uL Normal 0.0-0.2 [facility] Comment on above: Performed By: #### L [id number] ####Improvement Auditor: VELMA VALADEZ ([phone])[address] Basophils/100 WBC (Bld) 0.7 % Normal 0.0-2.0 [facility] Comment on above: Performed By: #### L [id number] ####Improvement Auditor: VELMA VALADEZ ([phone])[facility])[address] [place] [address] Eosinophils (Bld) [#/Vol] 0.1 10*3/uL Normal 0.0-0.5 [facility] Comment on above: Performed By: #### L [id number] ####Improvement Auditor: VELMA VALADEZ ([id number])[address] Eosinophils/100 WBC (Bld) 2.1 % Normal 0.0-6.0 [facility] Comment on above: Performed By: #### L [id number] ####Improvement Auditor: VELMA VALADEZ ([id number])[facility])[address] [place] [address] Erythrocyte distribution width (RBC) [Ratio] 14.7 % Normal 11.5-15.0 [facility] Comment on above: Performed By: #### L [id number] ####Improvement Auditor: VELMA VALADEZ ([id number])[address] Hematocrit (Bld) [Volume fraction] 26.0 % Low 35.0-47.0 [facility] Comment on above: Performed By: #### L [id number] ####Improvement Auditor: VELMA VALADEZ ([id number])[address] Hemoglobin (Bld) [Mass/Vol] 8.6 g/dL Low 11.7-16.0 [facility] Comment on above: Performed By: #### L [id number] ####Improvement Auditor: VELMA VALADEZ ([id number])[address] IMMATURE GRANS % 0.2 % Normal 0.0-2.0 [facility] Comment on above: Performed By: #### L [id number] ####Improvement Auditor: VELMA VALADEZ ([phone])[address] IMMATURE GRANS ABSOLUTE 0.0 10*3/uL Normal <0.1 [facility] Comment on above: Performed By: #### L [id number] ####Improvement Auditor: VELMA VALADEZ ([phone])[facility])[address] [place] [address] Lymphocytes (Bld) [#/Vol] 1.4 10*3/uL Normal 1.0-4.3 [facility] Comment on above: Performed By: #### L [id number] ####Improvement Auditor: VELMA VALADEZ ([phone])[facility])[address] [place] [address] Lymphocytes/100 WBC (Bld) 32.9 % Normal 15.0-45.0 [facility] Comment on above: Performed By: #### L [id number] ####Improvement Auditor: VELMA VALADEZ ([id number])[facility])[address] [place] [address] MCH (RBC) [Entitic mass] 30.1 pg Normal 26.0-34.0 [facility] Comment on above: Performed By: #### L [id number] ####Improvement Auditor: VELMA VALADEZ ([phone])[facility])[address] [place] [address] MCHC 33.1 % Normal 30.5-36.0 [facility] Comment on above: Performed By: #### L [id number] ####Improvement Auditor: VELMA VALADEZ ([phone])[facility])[address] [place] [address] MCV (RBC) [Entitic vol] 90.9 fL Normal 77.0-99.0 [facility] Comment on above: Performed By: #### L [id number] ####Improvement Auditor: VELMA VALADEZ ([phone])[facility])[address] [place] [address] Monocytes (Bld) [#/Vol] 0.6 10*3/uL Normal 0.0-0.9 [facility] Comment on above: Performed By: #### L [id number] ####Improvement Auditor: VELMA VALADEZ ([phone])[facility])[address] [place] [address] Monocytes/100 WBC (Bld) 13.6 % High 5.0-13.0 [facility] Comment on above: Performed By: #### L [id number] ####Improvement Auditor: VELMA VALADEZ ([phone])[facility])[address] [place] [address] NEUTROPHILS ABSOLUTE 2.1 10*3/uL Normal 1.8-7.5 [facility] Comment on above: Performed By: #### L [id number] ####Improvement Auditor: VELMA VALADEZ ([id number])[facility])[address] [place] [address] Neutrophils/100 WBC (Bld) 50.5 % Normal 38.0-82.0 [facility] Comment on above: Performed By: #### L [id number] ####Improvement Auditor: VELMA VALADEZ ([phone])[facility])[address] [place] [address] NRBC 0.0 /100 WBCs Normal 0.0-2.0 [facility] Comment on above: Performed By: #### L [id number] ####Improvement Auditor: VELMA VALADEZ ([id number])[facility])[address] [place] [address] Platelet mean volume (Bld) [Entitic vol] 10.0 fL Normal 9.0-12.7 [facility] Comment on above: Performed By: #### L [id number] ####Improvement Auditor: VELMA VALADEZ ([phone])[facility])[address] [place] [address] Platelets (Bld) [#/Vol] 238 10*3/uL Normal 140-440 [facility] Comment on above: Performed By: #### L [id number] ####Improvement Auditor: VELMA VALADEZ ([phone])[facility])[address] [place] [address] RBC (Bld) [#/Vol] 2.86 10*6/uL Low 3.80-5.20 [facility] Comment on above: Performed By: #### L [id number] ####Improvement Auditor: VELMA VALADEZ ([phone])[facility])[address] [place] [address] WBC (Bld) [#/Vol] 4.3 10*3/uL Normal 3.6-10.7 [facility] Comment on above: Performed By: #### L [id number] ####Improvement Auditor: VELMA VALADEZ ([phone])[facility])[address] [place] [address] IDNon 04-10-2024 IDN Normal [facility] Laboratory - Coagulationon 0 04-10-2024 PT Coag (Bld) [Time] 17.7 s High 9.0 - 1 2.0 s [facility] No Panel Informationon 04-10 Interpretation and review of laboratory results Abnormal [facility] PROTHROMBIN TIMEon INR Coag (PPP) [Relative time] 1.6 {INR} High 0.9-1.1 [facility] Comment on above: Result Comment: Timothy mmended Anticoagulant Therapy: SEE BELOW----- INR of 2.0 - 3.0 : - Prophylaxis of Venous Thrombosis (high-risk surgery) - Treatment of Venous Thrombosis - Treatment of Pulmonary Embolism (Includes tissue heart valves, Acute Myocardial Infarction to prevent systemic embolism, Valvular Heart Disease, and Atrial Fibrillation)----- INR of 2.5 - 3.5 : - Mechanical Prosthetic Valves (high risk) - If oral anticoagulant therapy is used to prevent Myocardial Infarction Performed By: #### L [id number], [id number] ####Improvement Auditor: VELMA VLAADEZ ([phone])[facility])[address] [place] [address] PT Coag (PPP) [Time] 17.7 s High 9.0-12.0 [facility] Comment on above: Performed By: #### L [id number], [id number] ####Improvement Auditor: VELMA VALADEZ ([phone])[facility])[address] [place] [address] [place] PT Coag (Bld) [Time]on 04-10 INR Coag (PPP) [Relative time] 1.6 {INR} High 0.9 - 1.1 [facility] Comment on above: Recommended Anticoag ulant Therapy: SEE BELOW ----- INR of 2.0 - 3.0 : - Prophylaxis of Venous Thrombosis (high-risk surgery) - Treatment of Venous Thrombosis - Treatment of Pulmonary Embolism (Includes tissue heart valves, Acute Myocardial Infarction to prevent systemic embolism, Valvular Heart Disease, and Atrial Fibrillation) ----- INR of 2.5 - 3.5 : - Mechanical Prosthetic Valves (high risk) - If oral anticoagulant therapy is used to prevent Myocardial Infarction Progress Noteon 04-10-2024 Progress Note Normal [facility] Progress Note Nutrition update completed. Chart reviewed. Patient to be monitored and followed by the diet orthodontic laboratory technician. Jessica Doran, DT Normal [facility] Progress Note Normal [facility] aPTT Coag (Bld) [Time]on aPTT Coag (PPP) [Time] 59.0 s High 20.0 - 30.5 s [facility] Interpretation and review of laboratory results Abnormal [facility] NOTE: The therapeuti c time for Heparin anticoagulation, based on Xa activity inhibition, is an APTT of 46-80 seconds. [facility] aPTT Coag (PPP) [Time] 77.3 s High 20.0 - 30.5 s [facility] NOTE: The therapeuti c time for Heparin anticoagulation, based on Xa activity inhibition, is an APTT of 46-80 seconds. [facility] APTTon 04-09-2024 aPTT Coag (Bld) [Time] 58.9 s High 20.0-30.5 [facility] Comment on above: Result Comment: BUBBA Garcia COMMENTS:NOTE: The therapeutic time for Heparin anticoagulation, based on Xa activity inhibition, is an APTT of 46-80 seconds. Performed By: #### L [id number] ####Improvement Auditor: VELMA VALADEZ ([id number])[facility] [id number] aPTT Coag (Bld) [Time] 64.6 s High 20.0-30.5 [facility] Comment on above: Result Comment: BUBBA Garcia COMMENTS:NOTE: The therapeutic time for Heparin anticoagulation, based on Xa activity inhibition, is an APTT of 46-80 seconds. Performed By: #### L [id number] ####Improvement Auditor: VELMA VALADEZ ([id number])[facility] [place] [address] aPTT Coag (Bld) [Time] 82.3 s High 20.0-30.5 [facility] Comment on above: Result Comment: BUBBA Garcia COMMENTS:NOTE: The therapeutic time for Heparin anticoagulation, based on Xa activity inhibition, is an APTT of 46-80 seconds. Performed By: #### L [id number], [id number] ####Improvement Auditor: VELMA VALADEZ ([phone])[facility])[address] [place] [address] BASIC METABOLIC PANELon 09-2 -2023 Anion gap [Moles/Vol] 5 mmol/L Normal 3-13 [facility] Comment on above: Performed By: #### L AB15 ####Improvement Auditor: VELMA VALADEZ ([id number])[facility])[address] [place] [address] Calcium [Mass/Vol] 8.9 mg/dL Normal 8.4-10.4 [facility] Comment on above: Performed By: #### L AB15 ####Improvement Auditor: VELMA VALADEZ ([id number])[facility] [place] [address] [place] Chloride [Moles/Vol] 116 mmol/L High 98-107 [facility] Comment on above: Performed By: #### L AB15 ####Improvement Auditor: VELMA VALADEZ ([id number])[facility])[address] [place] [address] CO2 [Moles/Vol] 16 mmol/L Low 22-30 [facility] Comment on above: Performed By: #### L AB15 ####Improvement Auditor: VELMA VALADEZ ([id number])[facility])[address] [place] [address] Creatinine [Mass/Vol] 0.93 mg/dL Normal 0.52-1.04 [facility] Comment on above: Performed By: #### L AB15 ####Improvement Auditor: VELMA VALADEZ ([phone])[facility] [place] [address] GLOMERULAR FILTRATION RATE ML/MIN/1.73 SQ M.PREDICTED 60.7 mL/min/1.73m*2 Normal >60.0 [facility] Comment on above: Result Comment: Calc ulation based on the Chronic Kidney Disease Epidemiology Collaboration (CKD-EPI) equation refit without adjustment for race Performed By: #### L AB15 ####Improvement Auditor: VELMA VALADEZ ([id number])[facility])[address] [place] [address] Glucose [Mass/Vol] 119 mg/dL High 70-100 [facility] Comment on above: Performed By: #### L AB15 ####Improvement Auditor: VELMA VALADEZ ([phone])[facility])[address] [place] [address] Potassium [Moles/Vol] 4.4 mmol/L Normal 3.5-5.1 [facility] Comment on above: Performed By: #### L AB15 ####Improvement Auditor: VELMA VALADEZ ([id number])[facility])[address] [place] [address] Sodium [Moles/Vol] 136 mmol/L Normal 135-145 [facility] Comment on above: Performed By: #### L AB15 ####Improvement Auditor: VELMA VALADEZ ([id number])[facility])[address] [place] [address] Urea nitrogen [Mass/Vol] 16 mg/dL Normal 7-17 [facility] Comment on above: Performed By: #### L AB15 ####Improvement Auditor: VELMA VALADEZ ([id number])[facility])[address] [place] [address] Basic metabolic 1998 panelon 04-09-2024 Anion gap [Moles/Vol] 5 mmol/L 3 - 13 mmol/L [facility] Calcium [Mass/Vol] 8.9 mg/dL 8.4 - 10. 4 mg/dL [facility] Chloride [Moles/Vol] 116 mmol/L High 98 - 10 7 mmol/L [facility] CO2 [Moles/Vol] 16 mmol/L Low 22 - 30 mmol/L [facility] Creatinine [Mass/Vol] 0.93 mg/dL 0.52 - 1.04 mg/dL [facility] GFR/1.73 sq M.predicted (S/P/Bld) [Vol rate/Area] 60.7 mL/min - PINF [facility] Comment on above: Calculation based on the Chronic Kidney Disease Epidemiology Collaboration (CKD-EPI) equation refit without adjustment for race Glucose [Mass/Vol] 119 mg/dL High 70 - 100 mg/dL [facility] Interpretation and review of laboratory results Abnormal [facility] Potassium [Moles/Vol] 4.4 mmol/L 3.5 - 5.1 mmol/L [facility] Sodium [Moles/Vol] 136 mmol/L 135 - 145 mmol/L [facility] Urea nitrogen [Mass/Vol] 16 mg/dL 7 - 17 mg/dL [facility] CARECOORDon 04-09-2024 CARECOORD Normal [facility] CBC W Auto Differential pane l (Bld)on 04-09-2024 Basophils (Bld) [#/Vol] 0.0 10*3/uL 0.0 - 0.2 10*3/uL [facility] Basophils/100 WBC (Bld) 0.6 % 0.0 - 2.0 % [facility] Eosinophils (Bld) [#/Vol] 0.1 10*3/uL 0.0 - 0.5 10*3/uL [facility] Eosinophils/100 WBC (Bld) 0.9 % 0.0 - 6.0 % [facility] Erythrocyte distribution width (RBC) [Ratio] 14.8 % 11.5 - 15.0 % [facility] Hematocrit (Bld) [Volume fraction] 28.2 % Low 35.0 - 47.0 % [facility] Hemoglobin (Bld) [Mass/Vol] 9.0 g/dL Low 11.7 - 16.0 g/dL [facility] Immature granulocytes (Bld) [#/Vol] 0.0 10*3/uL NINF - 0.1 10*3/uL [facility] Immature granulocytes/100 WBC (Bld) 0.4 % 0.0 - 2.0 % [facility] Interpretation and review of laboratory results Abnormal [facility] Lymphocytes (Bld) [#/Vol] 2.2 10*3/uL 1.0 - 4.3 10*3/uL [facility] Lymphocytes/100 WBC (Bld) 31.2 % 15.0 - 45.0 % [facility] MCH (RBC) [Entitic mass] 29.8 pg 26.0 - 34.0 pg [facility] MCHC (RBC) [Mass/Vol] 31.9 % 30.5 - 36.0 % [facility] MCV (RBC) [Entitic vol] 93.4 fL 77.0 - 99.0 fL [facility] Monocytes (Bld) [#/Vol] 0.7 10*3/uL 0.0 - 0.9 10*3/uL [facility] Monocytes/100 WBC (Bld) 10.7 % 5.0 - 13.0 % [facility] Neutrophils (Bld) [#/Vol] 3.9 10*3/uL 1.8 - 7.5 10*3/uL [facility] Neutrophils/100 WBC (Bld) 56.2 % 38.0 - 82.0 % [facility] Nucleated RBC/100 WBC (Bld) [Ratio] 0.0 % [facility] Platelet mean volume (Bld) [Entitic vol] 10.2 fL 9.0 - 12.7 fL [facility] Platelets (Bld) [#/Vol] 235 10*3/uL 140 - 440 10*3/uL [facility] RBC (Bld) [#/Vol] 3.02 10*6/uL Low 3.80 - 5.2 0 10*6/uL [facility] WBC (Bld) [#/Vol] 6.9 10*3/uL 3.6 - 10.7 10*3/uL [facility] CBC WITH AUTO DIFFERENTIALon 04-09-2024 Basophils (Bld) [#/Vol] 0.0 10*3/uL Normal 0.0-0.2 [facility] Comment on above: Performed By: #### L [id number] ####Improvement Auditor: VELMA VALADEZ ([phone])[facility])[address] [place] [address] Basophils/100 WBC (Bld) 0.6 % Normal 0.0-2.0 [facility] Comment on above: Performed By: #### L [id number] ####Improvement Auditor: VELMA VALADEZ ([phone])[facility])[address] [place] [address] Eosinophils (Bld) [#/Vol] 0.1 10*3/uL Normal 0.0-0.5 [facility] Comment on above: Performed By: #### L [id number] ####Improvement Auditor: VELMA VALADEZ ([phone])[address] Eosinophils/100 WBC (Bld) 0.9 % Normal 0.0-6.0 [facility] Comment on above: Performed By: #### L [id number] ####Improvement Auditor: VELMA VALADEZ ([phone])[address] Erythrocyte distribution width (RBC) [Ratio] 14.8 % Normal 11.5-15.0 [facility] Comment on above: Performed By: #### L [id number] ####Improvement Auditor: VELMA VALADEZ ([phone])[facility])[address] [place] [address] Hematocrit (Bld) [Volume fraction] 28.2 % Low 35.0-47.0 [facility] Comment on above: Performed By: #### L [id number] ####Improvement Auditor: VELMA VALADEZ ([id number])[address] Hemoglobin (Bld) [Mass/Vol] 9.0 g/dL Low 11.7-16.0 [facility] Comment on above: Performed By: #### L [id number] ####Improvement Auditor: VELMA VALADEZ ([id number])[facility])[address] [place] [address] IMMATURE GRANS % 0.4 % Normal 0.0-2.0 [facility] Comment on above: Performed By: #### L [id number] ####Improvement Auditor: VELMA VALADEZ ([id number])[facility])[address] [place] [address] IMMATURE GRANS ABSOLUTE 0.0 10*3/uL Normal <0.1 [facility] Comment on above: Performed By: #### L [id number] ####Improvement Auditor: VELMA VALADEZ ([id number])[facility])[address] [place] [address] Lymphocytes (Bld) [#/Vol] 2.2 10*3/uL Normal 1.0-4.3 [facility] Comment on above: Performed By: #### L [id number] ####Improvement Auditor: VELMA VALADEZ ([phone])[facility] ([facility])[address] [place] [address] Lymphocytes/100 WBC (Bld) 31.2 % Normal 15.0-45.0 [facility] Comment on above: Performed By: #### L [id number] ####Improvement Auditor: VELMA VALADEZ ([phone])[facility])[address] [place] [address] MCH (RBC) [Entitic mass] 29.8 pg Normal 26.0-34.0 [facility] Comment on above: Performed By: #### L [id number] ####Improvement Auditor: VELMA VALADEZ ([phone])[facility])[address] [place] [address] MCHC 31.9 % Normal 30.5-36.0 [facility] Comment on above: Performed By: #### L [id number] ####Improvement Auditor: VELMA VALADEZ ([phone])[facility])[address] [place] [address] MCV (RBC) [Entitic vol] 93.4 fL Normal 77.0-99.0 [facility] Comment on above: Performed By: #### L [id number] ####Improvement Auditor: VELMA VALADEZ ([phone])[facility] ([facility])[address] [place] [address] Monocytes (Bld) [#/Vol] 0.7 10*3/uL Normal 0.0-0.9 [facility] Comment on above: Performed By: #### L [id number] ####Improvement Auditor: VELMA VALADEZ ([phone])[facility] ([facility])[address] [place] [address] Monocytes/100 WBC (Bld) 10.7 % Normal 5.0-13.0 [facility] Comment on above: Performed By: #### L [id number] ####Improvement Auditor: VELMA VALADEZ ([phone])[facility] ([facility])[address] [place] [address] NEUTROPHILS ABSOLUTE 3.9 10*3/uL Normal 1.8-7.5 [facility] Comment on above: Performed By: #### L [id number] ####Improvement Auditor: VELMA VALADEZ ([phone])[facility] ([facility])[address] [place] [address] Neutrophils/100 WBC (Bld) 56.2 % Normal 38.0-82.0 [facility] Comment on above: Performed By: #### L [id number] ####Improvement Auditor: VELMA VALADEZ ([phone])[facility] ([facility])[address] [place] [address] NRBC 0.0 /100 WBCs Normal 0.0-2.0 [facility] Comment on above: Performed By: #### L [id number] ####Improvement Auditor: VELMA VALADEZ ([phone])[facility] ([facility])[address] [place] [address] [place] Platelet mean volume (Bld) [Entitic vol] 10.2 fL Normal 9.0-12.7 [facility] Comment on above: Performed By: #### L [id number] ####Improvement Auditor: VELMA VALADEZ ([phone])[facility])[address] [place] [address] Platelets (Bld) [#/Vol] 235 10*3/uL Normal 140-440 [facility] Comment on above: Performed By: #### L [id number] ####Improvement Auditor: VELMA VALADEZ ([phone])[facility])[address] [place] [address] RBC (Bld) [#/Vol] 3.02 10*6/uL Low 3.80-5.20 [facility] Comment on above: Performed By: #### L [id number] ####Improvement Auditor: VELMA VALADEZ ([id number])[facility])[address] [place] [address] WBC (Bld) [#/Vol] 6.9 10*3/uL Normal 3.6-10.7 [facility] Comment on above: Performed By: #### L [id number] ####Improvement Auditor: VELMA VALADEZ ([phone])[facility])[address] [place] [address] Laboratory - Coagulationon 0 04-09-2024 PT Coag (Bld) [Time] 13.8 s High 9.0 - 1 2.0 s [facility] No Panel Informationon 04-09 Interpretation and review of laboratory results Abnormal [facility] PROTHROMBIN TIMEon INR Coag (PPP) [Relative time] 1.2 {INR} High 0.9-1.1 [facility] Comment on above: Result Comment: Timothy mmended Anticoagulant Therapy: SEE BELOW----- INR of 2.0 - 3.0 : - Prophylaxis of Venous Thrombosis (high-risk surgery) - Treatment of Venous Thrombosis - Treatment of Pulmonary Embolism (Includes tissue heart valves, Acute Myocardial Infarction to prevent systemic embolism, Valvular Heart Disease, and Atrial Fibrillation)----- INR of 2.5 - 3.5 : - Mechanical Prosthetic Valves (high risk) - If oral anticoagulant therapy is used to prevent Myocardial Infarction Performed By: #### L [id number], [id number] ####Improvement Auditor: VELMA VALADEZ ([id number])[facility] [place] [address] PT Coag (PPP) [Time] 13.8 s High 9.0-12.0 [facility] Comment on above: Performed By: #### L AB320, [id number] ####Improvement Auditor: VELMA VALADEZ ([phone])[facility] ([facility])[address] [place] [address] PT Coag (Bld) [Time]on 04-09 INR Coag (PPP) [Relative time] 1.2 {INR} High 0.9 - 1.1 [facility] Comment on above: Recommended Anticoag ulant Therapy: SEE BELOW ----- INR of 2.0 - 3.0 : - Prophylaxis of Venous Thrombosis (high-risk surgery) - Treatment of Venous Thrombosis - Treatment of Pulmonary Embolism (Includes tissue heart valves, Acute Myocardial Infarction to prevent systemic embolism, Valvular Heart Disease, and Atrial Fibrillation) ----- INR of 2.5 - 3.5 : - Mechanical Prosthetic Valves (high risk) - If oral anticoagulant therapy is used to prevent Myocardial Infarction Progress Noteon 04-09-2024 Progress Note Normal [facility] Progress Note Normal [facility] XR CHEST 1 VIEWon 04-09-2024 XR CHEST 1 VIEW Normal [facility] XR Chest Single viewon 04-09 Mild cardiomegaly and pulmonary venous congestion with small pleural effusions. Report Dictated on Electronically Signed By: Di Leggett MD Electronically Signed Date/Time: 04/09/2024 1:42 PM [facility] EM[facility] [employer] Patient Name: MEL CARVER RD : 1940 Exam Date/Time: 04/09/2024 14:11 Procedure: XR CHEST 1 VIEW Ordering Provider: VIGIL TARANJOT Reason For Exam: Shortness of breath AP CHEST X-RAY CLINICAL INDICATION: Shortness of breath TECHNIQUE: AP portable x-ray of the chest. COMPARISON: None FINDINGS: Heart/Mediastinum: The cardiac silhouette is mildly enlarged. There is mild vascular redistribution suggesting pulmonary venous congestion. Lungs: Small pleural effusions are present bilaterally. No definite pulmonary edema. No lung consolidation or pneumothorax. Bones: Fixation hardware in the right humerus. Degenerative changes in the left shoulder. No acute osseous findings. [facility] Di Leggett M D - 04/09/2024 Patient Name: MEL POP : 1940 Exam Date/Time: 04/09/2024 14:11 Procedure: XR CHEST 1 VIEW Ordering Provider: VIGIL TARANJOT Reason For Exam: Shortness of breath AP CHEST X-RAY CLINICAL INDICATION: Shortness of breath TECHNIQUE: AP portable x-ray of the chest. COMPARISON: None FINDINGS: Heart/Mediastinum: The cardiac silhouette is mildly enlarged. There is mild vascular redistribution suggesting pulmonary venous congestion. Lungs: Small pleural effusions are present bilaterally. No definite pulmonary edema. No lung consolidation or pneumothorax. Bones: Fixation hardware in the right humerus. Degenerative changes in the left shoulder. No acute osseous findings. IMPRESSION: Mild cardiomegaly and pulmonary venous congestion with small pleural effusions. Report Dictated on Electronically Signed By: Di Leggett MD Electronically Signed Date/Time: 04/09/2024 1:42 PM EDT [facility] Radiology Study observation (narrative) [facility] XR Chest Single viewOrdered By: Di Leggett on 04-09-2024 [facility] Work Phone: aPTT Coag (Bld) [Time]on aPTT Coag (PPP) [Time] 58.9 s High 20.0 - 30.5 s [facility] Interpretation and review of laboratory results Abnormal [facility] NOTE: The therapeuti c time for Heparin anticoagulation, based on Xa activity inhibition, is an APTT of 46-80 seconds. [facility] aPTT Coag (PPP) [Time] 64.6 s High 20.0 - 30.5 s [facility] Interpretation and review of laboratory results Abnormal [facility] NOTE: The therapeuti c time for Heparin anticoagulation, based on Xa activity inhibition, is an APTT of 46-80 seconds. [facility] aPTT Coag (PPP) [Time] 82.3 s High 20.0 - 30.5 s [facility] NOTE: The therapeuti c time for Heparin anticoagulation, based on Xa activity inhibition, is an APTT of 46-80 seconds. [facility] APTTon 04-08-2024 aPTT Coag (Bld) [Time] 51.5 s High 20.0-30.5 [facility] Comment on above: Result Comment: BUBBA R COMMENTS:NOTE: The therapeutic time for Heparin anticoagulation, based on Xa activity inhibition, is an APTT of 46-80 seconds. Performed By: #### L [id number] ####Improvement Auditor: VELMA VALADEZ ([phone])[facility])[address] [place] [address] aPTT Coag (Bld) [Time] 59.8 s High 20.0-30.5 [facility] Comment on above: Result Comment: BUBBA Garcia COMMENTS:NOTE: The therapeutic time for Heparin anticoagulation, based on Xa activity inhibition, is an APTT of 46-80 seconds. Performed By: #### L [id number] ####Improvement Auditor: VELMA VALADEZ ([phone])[facility] ([facility])[address] [place] [address] aPTT Coag (Bld) [Time] 41.4 s High 20.0-30.5 [facility] Comment on above: Result Comment: BUBBA R COMMENTS:NOTE: The therapeutic time for Heparin anticoagulation, based on Xa activity inhibition, is an APTT of 46-80 seconds. Performed By: #### L AB325, [id number] ####Improvement Auditor: VELMA VALADEZ ([phone])[facility] ([facility])[address] [place] [address] BASIC METABOLIC PANELon 09- Anion gap [Moles/Vol] 5 mmol/L Normal 3-13 [facility] Comment on above: Performed By: #### L AB15 ####Improvement Auditor: VELMA VALADEZ ([phone])[facility] [place] [address] Calcium [Mass/Vol] 8.9 mg/dL Normal 8.4-10.4 [facility] Comment on above: Performed By: #### L AB15 ####Improvement Auditor: VELMA VALADEZ ([phone])[facility] [place] [address] Chloride [Moles/Vol] 113 mmol/L High 98-107 [facility] Comment on above: Performed By: #### L AB15 ####Improvement Auditor: VELMA VALADEZ ([id number])[facility] [place] [address] CO2 [Moles/Vol] 17 mmol/L Low 22-30 [facility] Comment on above: Performed By: #### L AB15 ####Improvement Auditor: VELMA VALADEZ ([id number])[facility] [place] [address] Creatinine [Mass/Vol] 0.98 mg/dL Normal 0.52-1.04 [facility] Comment on above: Performed By: #### L AB15 ####Improvement Auditor: VELMA VALADEZ ([phone])[facility] ([facility])[address] [place] [address] [place] GLOMERULAR FILTRATION RATE ML/MIN/1.73 SQ M.PREDICTED 57.0 mL/min/1.73m*2 Low >60.0 [facility] Comment on above: Result Comment: Calc ulation based on the Chronic Kidney Disease Epidemiology Collaboration (CKD-EPI) equation refit without adjustment for race Performed By: #### L AB15 ####Improvement Auditor: VELMA VALADEZ ([id number])[facility] [place] [address] [place] Glucose [Mass/Vol] 116 mg/dL High 70-100 [facility] Comment on above: Performed By: #### L AB15 ####Improvement Auditor: VELMA VALADEZ ([id number])[facility] ([facility])[address] [place] [address] Potassium [Moles/Vol] 4.5 mmol/L Normal 3.5-5.1 [facility] Comment on above: Performed By: #### L AB15 ####Improvement Auditor: VELMA VALADEZ ([phone])[facility])[address] [place] [address] Sodium [Moles/Vol] 135 mmol/L Normal 135-145 [facility] Comment on above: Performed By: #### L AB15 ####Improvement Auditor: VELMA VALADEZ ([phone])[facility])[address] [place] [address] Urea nitrogen [Mass/Vol] 18 mg/dL High 7-17 [facility] Comment on above: Performed By: #### L AB15 ####Improvement Auditor: VELMA VALADEZ ([phone])[facility])[address] [place] [address] Basic metabolic 1998 panelon 04-08-2024 Anion gap [Moles/Vol] 5 mmol/L 3 - 13 mmol/L [facility] Calcium [Mass/Vol] 8.9 mg/dL 8.4 - 10. 4 mg/dL [facility] Chloride [Moles/Vol] 113 mmol/L High 98 - 10 7 mmol/L [facility] CO2 [Moles/Vol] 17 mmol/L Low 22 - 30 mmol/L [facility] Creatinine [Mass/Vol] 0.98 mg/dL 0.52 - 1.04 mg/dL [facility] GFR/1.73 sq M.predicted (S/P/Bld) [Vol rate/Area] 57.0 mL/min Low - PINF [facility] Comment on above: Calculation based on the Chronic Kidney Disease Epidemiology Collaboration (CKD-EPI) equation refit without adjustment for race Glucose [Mass/Vol] 116 mg/dL High 70 - 100 mg/dL [facility] Interpretation and review of laboratory results Abnormal [facility] Potassium [Moles/Vol] 4.5 mmol/L 3.5 - 5.1 mmol/L [facility] Sodium [Moles/Vol] 135 mmol/L 135 - 145 mmol/L [facility] Urea nitrogen [Mass/Vol] 18 mg/dL High 7 - 17 mg/dL [facility] CBC W Auto Differential pane l (Bld)on 04-08-2024 Basophils (Bld) [#/Vol] 0.0 10*3/uL 0.0 - 0.2 10*3/uL [facility] Basophils/100 WBC (Bld) 0.5 % 0.0 - 2.0 % [facility] Eosinophils (Bld) [#/Vol] 0.1 10*3/uL 0.0 - 0.5 10*3/uL [facility] Eosinophils/100 WBC (Bld) 0.9 % 0.0 - 6.0 % [facility] Erythrocyte distribution width (RBC) [Ratio] 14.8 % 11.5 - 15.0 % [facility] Hematocrit (Bld) [Volume fraction] 27.0 % Low 35.0 - 47.0 % [facility] Hemoglobin (Bld) [Mass/Vol] 8.6 g/dL Low 11.7 - 16.0 g/dL [facility] Immature granulocytes (Bld) [#/Vol] 0.0 10*3/uL NINF - 0.1 10*3/uL [facility] Immature granulocytes/100 WBC (Bld) 0.4 % 0.0 - 2.0 % [facility] Interpretation and review of laboratory results Abnormal [facility] Lymphocytes (Bld) [#/Vol] 1.7 10*3/uL 1.0 - 4.3 10*3/uL [facility] Lymphocytes/100 WBC (Bld) 23.3 % 15.0 - 45.0 % [facility] MCH (RBC) [Entitic mass] 30.2 pg 26.0 - 34.0 pg [facility] MCHC (RBC) [Mass/Vol] 31.9 % 30.5 - 36.0 % [facility] MCV (RBC) [Entitic vol] 94.7 fL 77.0 - 99.0 fL [facility] Monocytes (Bld) [#/Vol] 0.8 10*3/uL 0.0 - 0.9 10*3/uL [facility] Monocytes/100 WBC (Bld) 10.2 % 5.0 - 13.0 % [facility] Neutrophils (Bld) [#/Vol] 4.8 10*3/uL 1.8 - 7.5 10*3/uL [facility] Neutrophils/100 WBC (Bld) 64.7 % 38.0 - 82.0 % [facility] Nucleated RBC/100 WBC (Bld) [Ratio] 0.0 % [facility] Platelet mean volume (Bld) [Entitic vol] 10.1 fL 9.0 - 12.7 fL [facility] Platelets (Bld) [#/Vol] 223 10*3/uL 140 - 440 10*3/uL [facility] RBC (Bld) [#/Vol] 2.85 10*6/uL Low 3.80 - 5.2 0 10*6/uL [facility] WBC (Bld) [#/Vol] 7.5 10*3/uL 3.6 - 10.7 10*3/uL [facility] CBC WITH AUTO DIFFERENTIALon 04-08-2024 Basophils (Bld) [#/Vol] 0.0 10*3/uL Normal 0.0-0.2 [facility] Comment on above: Performed By: #### L [id number] ####Improvement Auditor: VELMA VALADEZ ([phone])[address] Basophils/100 WBC (Bld) 0.5 % Normal 0.0-2.0 [facility] Comment on above: Performed By: #### L [id number] ####Improvement Auditor: VELMA VALADEZ ([id number])[facility] ([facility])[address] [place] [address] Eosinophils (Bld) [#/Vol] 0.1 10*3/uL Normal 0.0-0.5 [facility] Comment on above: Performed By: #### L [id number] ####Improvement Auditor: VELMA VALADEZ ([phone])[facility])[address] [place] [address] Eosinophils/100 WBC (Bld) 0.9 % Normal 0.0-6.0 [facility] Comment on above: Performed By: #### L [id number] ####Improvement Auditor: VELMA VALADEZ ([phone])[address] Erythrocyte distribution width (RBC) [Ratio] 14.8 % Normal 11.5-15.0 [facility] Comment on above: Performed By: #### L [id number] ####Improvement Auditor: VELMA VALADEZ ([id number])[address] Hematocrit (Bld) [Volume fraction] 27.0 % Low 35.0-47.0 [facility] Comment on above: Performed By: #### L [id number] ####Improvement Auditor: VELMA VALADEZ ([phone])[address] Hemoglobin (Bld) [Mass/Vol] 8.6 g/dL Low 11.7-16.0 [facility] Comment on above: Performed By: #### L [id number] ####Improvement Auditor: VELMA VALADEZ ([id number])[address] IMMATURE GRANS % 0.4 % Normal 0.0-2.0 [facility] Comment on above: Performed By: #### L [id number] ####Improvement Auditor: VELMA VALADEZ ([id number])[address] IMMATURE GRANS ABSOLUTE 0.0 10*3/uL Normal <0.1 [facility] Comment on above: Performed By: #### L [id number] ####Improvement Auditor: VELMA VALADEZ ([id number])[address] Lymphocytes (Bld) [#/Vol] 1.7 10*3/uL Normal 1.0-4.3 [facility] Comment on above: Performed By: #### L [id number] ####Improvement Auditor: VELMA VALADEZ ([phone])[facility])[address] [place] [address] Lymphocytes/100 WBC (Bld) 23.3 % Normal 15.0-45.0 [facility] Comment on above: Performed By: #### L [id number] ####Improvement Auditor: VELMA VALADEZ ([phone])[facility])[address] [place] [address] MCH (RBC) [Entitic mass] 30.2 pg Normal 26.0-34.0 [facility] Comment on above: Performed By: #### L [id number] ####Improvement Auditor: VELMA VALADEZ ([id number])[facility])[address] [place] [address] MCHC 31.9 % Normal 30.5-36.0 [facility] Comment on above: Performed By: #### L [id number] ####Improvement Auditor: VELMA VALADEZ ([phone])[facility])[address] [place] [address] MCV (RBC) [Entitic vol] 94.7 fL Normal 77.0-99.0 [facility] Comment on above: Performed By: #### L [id number] ####Improvement Auditor: VELMA VALADEZ ([id number])[facility])[address] [place] [address] Monocytes (Bld) [#/Vol] 0.8 10*3/uL Normal 0.0-0.9 [facility] Comment on above: Performed By: #### L [id number] ####Improvement Auditor: VELMA VALADEZ ([phone])[facility])[address] [place] [address] Monocytes/100 WBC (Bld) 10.2 % Normal 5.0-13.0 [facility] Comment on above: Performed By: #### L [id number] ####Improvement Auditor: VELMA VALADEZ ([phone])[facility])[address] [place] [address] NEUTROPHILS ABSOLUTE 4.8 10*3/uL Normal 1.8-7.5 [facility] Comment on above: Performed By: #### L [id number] ####Improvement Auditor: VELMA VALADEZ ([id number])[facility] ([facility])[address] [place] [address] Neutrophils/100 WBC (Bld) 64.7 % Normal 38.0-82.0 [facility] Comment on above: Performed By: #### L [id number] ####Improvement Auditor: VELMA VALADEZ ([phone])[facility] ([facility])[address] [place] [address] NRBC 0.0 /100 WBCs Normal 0.0-2.0 [facility] Comment on above: Performed By: #### L [id number] ####Improvement Auditor: VELMA VALADEZ ([id number])[facility] ([facility])[address] [place] [address] Platelet mean volume (Bld) [Entitic vol] 10.1 fL Normal 9.0-12.7 [facility] Comment on above: Performed By: #### L [id number] ####Improvement Auditor: VELMA VALADEZ ([id number])[facility] ([facility])[address] [place] [address] Platelets (Bld) [#/Vol] 223 10*3/uL Normal 140-440 [facility] Comment on above: Performed By: #### L [id number] ####Improvement Auditor: VELMA VALADEZ ([id number])[facility] ([facility])[address] [place] [address] RBC (Bld) [#/Vol] 2.85 10*6/uL Low 3.80-5.20 [facility] Comment on above: Performed By: #### L [id number] ####Improvement Auditor: VELMA VALADEZ ([phone])[facility])[address] [place] [address] WBC (Bld) [#/Vol] 7.5 10*3/uL Normal 3.6-10.7 [facility] Comment on above: Performed By: #### Weston [id number] ####Improvement Auditor: VELMA VALADEZ ([phone])[facility])[address] [place] [address] [place] IDNon 04-08-2024 IDN Progressing Normal [facility] Laboratory - Coagulationon 0 04-08-2024 PT Coag (Bld) [Time] 11.2 s 9.0 - 1 2.0 s [facility] No Panel Informationon 04-08 [facility] PROTHROMBIN TIMEon INR Coag (PPP) [Relative time] 1.0 {INR} Normal 0.9-1.1 [facility] Comment on above: Result Comment: Timothy mmended Anticoagulant Therapy: SEE BELOW----- INR of 2.0 - 3.0 : - Prophylaxis of Venous Thrombosis (high-risk surgery) - Treatment of Venous Thrombosis - Treatment of Pulmonary Embolism (Includes tissue heart valves, Acute Myocardial Infarction to prevent systemic embolism, Valvular Heart Disease, and Atrial Fibrillation)----- INR of 2.5 - 3.5 : - Mechanical Prosthetic Valves (high risk) - If oral anticoagulant therapy is used to prevent Myocardial Infarction Performed By: #### Weston AB325, [id number] ####Improvement Auditor: VELMA VALADEZ ([phone])[facility])[address] [place] [address] PT Coag (PPP) [Time] 11.2 s Normal 9.0-12.0 [facility] Comment on above: Performed By: #### Weston AB325, [id number] ####Improvement Auditor: VELMA VALADEZ ([phone])[facility])[address] [place] [address] PT Coag (Bld) [Time]on 04-08 INR Coag (PPP) [Relative time] 1.0 {INR} 0.9 - 1.1 [facility] Comment on above: Recommended Anticoag ulant Therapy: SEE BELOW ----- INR of 2.0 - 3.0 : - Prophylaxis of Venous Thrombosis (high-risk surgery) - Treatment of Venous Thrombosis - Treatment of Pulmonary Embolism (Includes tissue heart valves, Acute Myocardial Infarction to prevent systemic embolism, Valvular Heart Disease, and Atrial Fibrillation) ----- INR of 2.5 - 3.5 : - Mechanical Prosthetic Valves (high risk) - If oral anticoagulant therapy is used to prevent Myocardial Infarction Interpretation and review of laboratory results Normal [facility] Progress Noteon 04-08-2024 Progress Note Normal [facility] Progress Note Normal [facility] aPTT Coag (Bld) [Time]on aPTT Coag (PPP) [Time] 51.5 s High 20.0 - 30.5 s [facility] Interpretation and review of laboratory results Abnormal [facility] NOTE: The therapeuti c time for Heparin anticoagulation, based on Xa activity inhibition, is an APTT of 46-80 seconds. [facility] aPTT Coag (PPP) [Time] 59.8 s High 20.0 - 30.5 s [facility] Interpretation and review of laboratory results Abnormal [facility] NOTE: The therapeuti c time for Heparin anticoagulation, based on Xa activity inhibition, is an APTT of 46-80 seconds. [facility] aPTT Coag (PPP) [Time] 41.4 s High 20.0 - 30.5 s [facility] Interpretation and review of laboratory results Abnormal [facility] NOTE: The therapeuti c time for Heparin anticoagulation, based on Xa activity inhibition, is an APTT of 46-80 seconds. [facility] APTTon 04-07-2024 aPTT Coag (Bld) [Time] 54.7 s High 20.0-30.5 [facility] Comment on above: Result Comment: BUBBA Garcia COMMENTS:NOTE: The therapeutic time for Heparin anticoagulation, based on Xa activity inhibition, is an APTT of 46-80 seconds. Performed By: #### L [id number] ####Improvement Auditor: VELMA VALADEZ ([phone])[facility] ([address] aPTT Coag (Bld) [Time] 77.7 s High 20.0-30.5 [facility] Comment on above: Result Comment: BUBBA Garcia COMMENTS:NOTE: The therapeutic time for Heparin anticoagulation, based on Xa activity inhibition, is an APTT of 46-80 seconds. Performed By: #### L AB325, [id number] ####Improvement Auditor: VELMA VALADEZ ([phone])[facility] ([facility])[address] [place] [address] BASIC METABOLIC PANELon 09-2 Anion gap [Moles/Vol] 4 mmol/L Normal 3-13 [facility] Comment on above: Performed By: #### L AB15 ####Improvement Auditor: VELMA VALADEZ ([phone])[facility] ([facility])[address] [place] [address] Calcium [Mass/Vol] 8.8 mg/dL Normal 8.4-10.4 [facility] Comment on above: Performed By: #### L AB15 ####Improvement Auditor: VELMA VALADEZ ([phone])[facility] ([facility])[address] [place] [address] Chloride [Moles/Vol] 115 mmol/L High 98-107 [facility] Comment on above: Performed By: #### L AB15 ####Improvement Auditor: VELMA VALADEZ ([id number])[facility] ([facility])[address] [place] [address] CO2 [Moles/Vol] 17 mmol/L Low 22-30 [facility] Comment on above: Performed By: #### L AB15 ####Improvement Auditor: VELMA VALADEZ ([phone])[facility] ([facility])[address] [place] [address] Creatinine [Mass/Vol] 0.90 mg/dL Normal 0.52-1.04 [facility] Comment on above: Performed By: #### L AB15 ####Improvement Auditor: VELMA VALADEZ ([phone])[facility])[address] [place] [address] GLOMERULAR FILTRATION RATE ML/MIN/1.73 SQ M.PREDICTED 63.2 mL/min/1.73m*2 Normal >60.0 [facility] Comment on above: Result Comment: Calc ulation based on the Chronic Kidney Disease Epidemiology Collaboration (CKD-EPI) equation refit without adjustment for race Performed By: #### L AB15 ####Improvement Auditor: VELMA VALADEZ ([id number])[facility] ([facility])[address] [place] [address] Glucose [Mass/Vol] 139 mg/dL High 70-100 [facility] Comment on above: Performed By: #### L AB15 ####Improvement Auditor: VELMA VALADEZ ([id number])[facility] ([facility])[address] [place] [address] Potassium [Moles/Vol] 4.7 mmol/L Normal 3.5-5.1 [facility] Comment on above: Performed By: #### L AB15 ####Improvement Auditor: VELMA VALADEZ ([id number])[facility] ([facility])[address] [place] [address] Sodium [Moles/Vol] 136 mmol/L Normal 135-145 [facility] Comment on above: Performed By: #### L AB15 ####Improvement Auditor: VELMA VALADEZ ([id number])[facility] ([facility])[address] [place] [address] Urea nitrogen [Mass/Vol] 16 mg/dL Normal 7-17 [facility] Comment on above: Performed By: #### L AB15 ####Improvement Auditor: VELMA VALADEZ ([id number])[facility] ([facility])[address] [place] [address] Basic metabolic 1998 panelon 04-07-2024 Anion gap [Moles/Vol] 4 mmol/L 3 - 13 mmol/L [facility] Calcium [Mass/Vol] 8.8 mg/dL 8.4 - 10. 4 mg/dL [facility] Chloride [Moles/Vol] 115 mmol/L High 98 - 10 7 mmol/L [facility] CO2 [Moles/Vol] 17 mmol/L Low 22 - 30 mmol/L [facility] Creatinine [Mass/Vol] 0.90 mg/dL 0.52 - 1.04 mg/dL [facility] GFR/1.73 sq M.predicted (S/P/Bld) [Vol rate/Area] 63.2 mL/min - PINF [facility] Comment on above: Calculation based on the Chronic Kidney Disease Epidemiology Collaboration (CKD-EPI) equation refit without adjustment for race Glucose [Mass/Vol] 139 mg/dL High 70 - 100 mg/dL [facility] Interpretation and review of laboratory results Abnormal [facility] Potassium [Moles/Vol] 4.7 mmol/L 3.5 - 5.1 mmol/L [facility] Sodium [Moles/Vol] 136 mmol/L 135 - 145 mmol/L [facility] Urea nitrogen [Mass/Vol] 16 mg/dL 7 - 17 mg/dL [facility] CBC W Auto Differential pane l (Bld)on 04-07-2024 Basophils (Bld) [#/Vol] 0.0 10*3/uL 0.0 - 0.2 10*3/uL [facility] Basophils/100 WBC (Bld) 0.2 % 0.0 - 2.0 % [facility] Eosinophils (Bld) [#/Vol] 0.0 10*3/uL 0.0 - 0.5 10*3/uL [facility] Eosinophils/100 WBC (Bld) 0.0 % 0.0 - 6.0 % [facility] Erythrocyte distribution width (RBC) [Ratio] 14.3 % 11.5 - 15.0 % [facility] Hematocrit (Bld) [Volume fraction] 27.0 % Low 35.0 - 47.0 % [facility] Hemoglobin (Bld) [Mass/Vol] 8.6 g/dL Low 11.7 - 16.0 g/dL [facility] Immature granulocytes (Bld) [#/Vol] 0.0 10*3/uL NINF - 0.1 10*3/uL [facility] Immature granulocytes/100 WBC (Bld) 0.5 % 0.0 - 2.0 % [facility] Interpretation and review of laboratory results Abnormal [facility] Lymphocytes (Bld) [#/Vol] 0.8 10*3/uL Low 1.0 - 4.3 10*3/uL [facility] Lymphocytes/100 WBC (Bld) 19.2 % 15.0 - 45.0 % [facility] MCH (RBC) [Entitic mass] 30.1 pg 26.0 - 34.0 pg [facility] MCHC (RBC) [Mass/Vol] 31.9 % 30.5 - 36.0 % [facility] MCV (RBC) [Entitic vol] 94.4 fL 77.0 - 99.0 fL [facility] Monocytes (Bld) [#/Vol] 0.3 10*3/uL 0.0 - 0.9 10*3/uL [facility] Monocytes/100 WBC (Bld) 7.5 % 5.0 - 13.0 % [facility] Neutrophils (Bld) [#/Vol] 2.9 10*3/uL 1.8 - 7.5 10*3/uL [facility] Neutrophils/100 WBC (Bld) 72.6 % 38.0 - 82.0 % [facility] Nucleated RBC/100 WBC (Bld) [Ratio] 0.0 % [facility] Platelet mean volume (Bld) [Entitic vol] 10.5 fL 9.0 - 12.7 fL [facility] Platelets (Bld) [#/Vol] 202 10*3/uL 140 - 440 10*3/uL [facility] RBC (Bld) [#/Vol] 2.86 10*6/uL Low 3.80 - 5.2 0 10*6/uL [facility] WBC (Bld) [#/Vol] 4.0 10*3/uL 3.6 - 10.7 10*3/uL [facility] CBC WITH AUTO DIFFERENTIALon 04-07-2024 Basophils (Bld) [#/Vol] 0.0 10*3/uL Normal 0.0-0.2 [facility] Comment on above: Performed By: #### L [id number] ####Improvement Auditor: VELMA VALADEZ ([phone])[address] Basophils/100 WBC (Bld) 0.2 % Normal 0.0-2.0 [facility] Comment on above: Performed By: #### L [id number] ####Improvement Auditor: VELMA VALADEZ ([id number])[facility])[address] [place] [address] Eosinophils (Bld) [#/Vol] 0.0 10*3/uL Normal 0.0-0.5 [facility] Comment on above: Performed By: #### L [id number] ####Improvement Auditor: VELMA VALADEZ ([id number])[address] Eosinophils/100 WBC (Bld) 0.0 % Normal 0.0-6.0 [facility] Comment on above: Performed By: #### L [id number] ####Improvement Auditor: VELMA VALADEZ ([phone])[facility])[address] [place] [address] Erythrocyte distribution width (RBC) [Ratio] 14.3 % Normal 11.5-15.0 [facility] Comment on above: Performed By: #### L [id number] ####Improvement Auditor: VELMA VALADEZ ([phone])[address] Hematocrit (Bld) [Volume fraction] 27.0 % Low 35.0-47.0 [facility] Comment on above: Performed By: #### L [id number] ####Improvement Auditor: VELMA VALADEZ ([id number])[address] Hemoglobin (Bld) [Mass/Vol] 8.6 g/dL Low 11.7-16.0 [facility] Comment on above: Performed By: #### L [id number] ####Improvement Auditor: VELMA VALADEZ ([id number])[address] IMMATURE GRANS % 0.5 % Normal 0.0-2.0 [facility] Comment on above: Performed By: #### L [id number] ####Improvement Auditor: VELMA VALADEZ ([id number])[address] IMMATURE GRANS ABSOLUTE 0.0 10*3/uL Normal <0.1 [facility] Comment on above: Performed By: #### L [id number] ####Improvement Auditor: VELMA VALADEZ ([phone])[facility] ([facility])[address] [place] [address] Lymphocytes (Bld) [#/Vol] 0.8 10*3/uL Low 1.0-4.3 [facility] Comment on above: Performed By: #### L [id number] ####Improvement Auditor: VELMA VALADEZ ([id number])[facility])[address] [place] [address] Lymphocytes/100 WBC (Bld) 19.2 % Normal 15.0-45.0 [facility] Comment on above: Performed By: #### L [id number] ####Improvement Auditor: VELMA VALADEZ ([id number])[facility])[address] [place] [address] MCH (RBC) [Entitic mass] 30.1 pg Normal 26.0-34.0 [facility] Comment on above: Performed By: #### L [id number] ####Improvement Auditor: VELMA VALADEZ ([id number])[facility])[address] [place] [address] MCHC 31.9 % Normal 30.5-36.0 [facility] Comment on above: Performed By: #### L [id number] ####Improvement Auditor: VELMA VALADEZ ([id number])[facility])[address] [place] [address] MCV (RBC) [Entitic vol] 94.4 fL Normal 77.0-99.0 [facility] Comment on above: Performed By: #### L [id number] ####Improvement Auditor: VELMA VALADEZ ([phone])[facility])[address] [place] [address] Monocytes (Bld) [#/Vol] 0.3 10*3/uL Normal 0.0-0.9 [facility] Comment on above: Performed By: #### L [id number] ####Improvement Auditor: VELMA VALADEZ ([id number])[facility])[address] [place] [address] Monocytes/100 WBC (Bld) 7.5 % Normal 5.0-13.0 [facility] Comment on above: Performed By: #### L [id number] ####Improvement Auditor: VELMA VALADEZ ([phone])[facility] ([facility])[address] [place] [address] NEUTROPHILS ABSOLUTE 2.9 10*3/uL Normal 1.8-7.5 [facility] Comment on above: Performed By: #### L [id number] ####Improvement Auditor: VELMA VALADEZ ([id number])[facility] ([facility])[address] [place] [address] Neutrophils/100 WBC (Bld) 72.6 % Normal 38.0-82.0 [facility] Comment on above: Performed By: #### L [id number] ####Improvement Auditor: VELMA VALADEZ ([id number])[facility] ([facility])[address] [place] [address] NRBC 0.0 /100 WBCs Normal 0.0-2.0 [facility] Comment on above: Performed By: #### L [id number] ####Improvement Auditor: VELMA VALADEZ ([id number])[facility] ([facility])[address] [place] [address] Platelet mean volume (Bld) [Entitic vol] 10.5 fL Normal 9.0-12.7 [facility] Comment on above: Performed By: #### L [id number] ####Improvement Auditor: VELMA VALADEZ ([id number])[facility] ([facility])[address] [place] [address] Platelets (Bld) [#/Vol] 202 10*3/uL Normal 140-440 [facility] Comment on above: Performed By: #### L [id number] ####Improvement Auditor: VEMLA VALADEZ ([id number])[facility] ([facility])[address] [place] [address] RBC (Bld) [#/Vol] 2.86 10*6/uL Low 3.80-5.20 [facility] Comment on above: Performed By: #### L [id number] ####Improvement Auditor: VELMA VALADEZ ([id number])[facility])[address] [place] [address] WBC (Bld) [#/Vol] 4.0 10*3/uL Normal 3.6-10.7 [facility] Comment on above: Performed By: #### L [id number] ####Improvement Auditor: VELMA VALADEZ ([id number])[facility])[address] [place] [address] IDNon 04-07-2024 IDN Normal [facility] Laboratory - Coagulationon 0 04-07-2024 PT Coag (Bld) [Time] 11.1 s 9.0 - 1 2.0 s [facility] No Panel Informationon 04-07 [facility] Nursing Noteon 04-07-2024 Nursing Note NO changes to hepari n infusion at this time. Normal [facility] PROTHROMBIN TIMEon INR Coag (PPP) [Relative time] 1.0 {INR} Normal 0.9-1.1 [facility] Comment on above: Result Comment: Timothy mmended Anticoagulant Therapy: SEE BELOW----- INR of 2.0 - 3.0 : - Prophylaxis of Venous Thrombosis (high-risk surgery) - Treatment of Venous Thrombosis - Treatment of Pulmonary Embolism (Includes tissue heart valves, Acute Myocardial Infarction to prevent systemic embolism, Valvular Heart Disease, and Atrial Fibrillation)----- INR of 2.5 - 3.5 : - Mechanical Prosthetic Valves (high risk) - If oral anticoagulant therapy is used to prevent Myocardial Infarction Performed By: #### L [id number], [id number] ####Improvement Auditor: VELMA VALADEZ ([id number])[facility])[address] [place] [address] PT Coag (PPP) [Time] 11.1 s Normal 9.0-12.0 [facility] Comment on above: Performed By: #### L [id number], [id number] ####Improvement Auditor: VELMA VALADEZ ([phone])[facility] ([facility])[address] [place] [address] PT Coag (Bld) [Time]on 04-07 INR Coag (PPP) [Relative time] 1.0 {INR} 0.9 - 1.1 [facility] Comment on above: Recommended Anticoag ulant Therapy: SEE BELOW ----- INR of 2.0 - 3.0 : - Prophylaxis of Venous Thrombosis (high-risk surgery) - Treatment of Venous Thrombosis - Treatment of Pulmonary Embolism (Includes tissue heart valves, Acute Myocardial Infarction to prevent systemic embolism, Valvular Heart Disease, and Atrial Fibrillation) ----- INR of 2.5 - 3.5 : - Mechanical Prosthetic Valves (high risk) - If oral anticoagulant therapy is used to prevent Myocardial Infarction Interpretation and review of laboratory results Normal [facility] Progress Noteon 04-07-2024 Progress Note Normal [facility] Progress Note Normal [facility] Progress Note Normal [facility] aPTT Coag (Bld) [Time]on aPTT Coag (PPP) [Time] 54.7 s High 20.0 - 30.5 s [facility] Interpretation and review of laboratory results Abnormal [facility] NOTE: The therapeuti c time for Heparin anticoagulation, based on Xa activity inhibition, is an APTT of 46-80 seconds. [facility] aPTT Coag (PPP) [Time] 77.7 s High 20.0 - 30.5 s [facility] Interpretation and review of laboratory results Abnormal [facility] NOTE: The therapeuti c time for Heparin anticoagulation, based on Xa activity inhibition, is an APTT of 46-80 seconds. [facility] [id number] 04-06-2024 [id number] Normal [facility] APTTon 04-06-2024 aPTT Coag (Bld) [Time] 43.3 s High 20.0-30.[address] [facility] Comment on above: Result Comment: BUBBA Garcia COMMENTS:NOTE: The therapeutic time for Heparin anticoagulation, based on Xa activity inhibition, is an APTT of 46-80 seconds. Performed By: #### L [id number] ####Improvement Auditor: VELMA VALADEZ ([id number])[facility] ([address] [address] [facility] aPTT Coag (Bld) [Time] 97.6 s High 20.0-30.5 [facility] Comment on above: Result Comment: BUBBA Garcia COMMENTS:NOTE: The therapeutic time for Heparin anticoagulation, based on Xa activity inhibition, is an APTT of 46-80 seconds. Performed By: #### L [id number] ####Improvement Auditor: VELMA VALADEZ ([id number])[facility] ([facility])[address] [place] [address] Anesthesia Noteon 04-06-2024 Anesthesia Note Normal [facility] Anesthesia Note Normal [facility] BASIC METABOLIC PANELon 03-19 Anion gap [Moles/Vol] 4 mmol/L Normal 3-13 [facility] Comment on above: Performed By: #### L AB15 ####Improvement Auditor: VELMA VALADEZ ([id number])[facility] ([facility])[address] [place] [address] Calcium [Mass/Vol] 8.9 mg/dL Normal 8.4-10.4 [facility] Comment on above: Performed By: #### L AB15 ####Improvement Auditor: VELMA VALADEZ ([id number])[facility] ([facility])[address] [place] [address] Chloride [Moles/Vol] 114 mmol/L High 98-107 [facility] Comment on above: Performed By: #### L AB15 ####Improvement Auditor: VELMA VALADEZ ([phone])[facility] ([facility])[address] [place] [address] CO2 [Moles/Vol] 18 mmol/L Low 22-30 [facility] Comment on above: Performed By: #### L AB15 ####Improvement Auditor: VELMA [id number])[facility])[address] [place] [address] Creatinine [Mass/Vol] 0.96 mg/dL Normal 0.52-1.04 [facility] Comment on above: Performed By: #### L AB15 ####Improvement Auditor: VELMA [id number])[facility] ([facility])[address] [place] [address] GLOMERULAR FILTRATION RATE ML/MIN/1.73 SQ M.PREDICTED 58.5 mL/min/1.73m*2 Low >60.0 [facility] Comment on above: Result Comment: Calc ulation based on the Chronic Kidney Disease Epidemiology Collaboration (CKD-EPI) equation refit without adjustment for race Performed By: #### L AB15 ####Improvement Auditor: VELMA VALADEZ ([id number])[facility] ([facility])[address] [place] [address] Glucose [Mass/Vol] 97 mg/dL Normal 70-100 [facility] Comment on above: Performed By: #### L AB15 ####Improvement Auditor: VELMA VALADEZ ([id number])[facility])[address] [place] [address] Potassium [Moles/Vol] 4.6 mmol/L Normal 3.5-5.1 [facility] Comment on above: Performed By: #### L AB15 ####Improvement Auditor: VELMA VALADEZ ([id number])[facility] ([facility])[address] [place] [address] Sodium [Moles/Vol] 135 mmol/L Normal 135-145 [facility] Comment on above: Performed By: #### L AB15 ####Improvement Auditor: VELMA VALADEZ ([id number])[facility])[address] [place] [address] Urea nitrogen [Mass/Vol] 17 mg/dL Normal 7-17 [facility] Comment on above: Performed By: #### L AB15 ####Improvement Auditor: VELMA VALADEZ ([phone])[facility])[address] [place] [address] BLOOD TYPE AND SCREEN GELon 04-06-2024 ABO GROUPING AB Normal [facility] Comment on above: Performed By: #### L [id number] ####Improvement Auditor: VELMA VALADEZ ([id number])[facility] ([facility])[address] [place] [address] [place] RH TYPE IN BLOOD Positive Normal [facility] Comment on above: Performed By: #### L [id number] ####Improvement Auditor: VELMA VALADEZ ([phone])[facility] ([facility])[address] [place] [address] Basic metabolic 1998 panelon 04-06-2024 Anion gap [Moles/Vol] 4 mmol/L 3 - 13 mmol/L [facility] Calcium [Mass/Vol] 8.9 mg/dL 8.4 - 10. 4 mg/dL [facility] Chloride [Moles/Vol] 114 mmol/L High 98 - 10 7 mmol/L [facility] CO2 [Moles/Vol] 18 mmol/L Low 22 - 30 mmol/L [facility] Creatinine [Mass/Vol] 0.96 mg/dL 0.52 - 1.04 mg/dL [facility] GFR/1.73 sq M.predicted (S/P/Bld) [Vol rate/Area] 58.5 mL/min Low - PINF [facility] Comment on above: Calculation based on the Chronic Kidney Disease Epidemiology Collaboration (CKD-EPI) equation refit without adjustment for race Glucose [Mass/Vol] 97 mg/dL 70 - 100 mg/dL [facility] Interpretation and review of laboratory results Abnormal [facility] Potassium [Moles/Vol] 4.6 mmol/L 3.5 - 5.1 mmol/L [facility] Sodium [Moles/Vol] 135 mmol/L 135 - 145 mmol/L [facility] Urea nitrogen [Mass/Vol] 17 mg/dL 7 - 17 mg/dL [facility] Blood type and Crossmatch pa juan (Bld)on 04-06-2024 ABO group Nom (Bld) AB [facility] Blood group antibody screen GEL Ql Negative [facility] D Ag Ql (RBC) [facility] CARECOORDon 04-06-2024 CARECOORD Normal [facility] CARECOSTOCKWELL Normal [facility] CBC W Auto Differential pane l (Bld)on 04-06-2024 Basophils (Bld) [#/Vol] 0.1 10*3/uL 0.0 - 0.2 10*3/uL [facility] Basophils/100 WBC (Bld) 1.1 % 0.0 - 2.0 % [facility] Eosinophils (Bld) [#/Vol] 0.1 10*3/uL 0.0 - 0.5 10*3/uL [facility] Eosinophils/100 WBC (Bld) 2.7 % 0.0 - 6.0 % [facility] Erythrocyte distribution width (RBC) [Ratio] 14.3 % 11.5 - 15.0 % [facility] Hematocrit (Bld) [Volume fraction] 29.8 % Low 35.0 - 47.0 % [facility] Hemoglobin (Bld) [Mass/Vol] 9.7 g/dL Low 11.7 - 16.0 g/dL [facility] Immature granulocytes (Bld) [#/Vol] 0.0 10*3/uL NINF - 0.1 10*3/uL [facility] Immature granulocytes/100 WBC (Bld) 0.2 % 0.0 - 2.0 % [facility] Interpretation and review of laboratory results Abnormal [facility] Lymphocytes (Bld) [#/Vol] 1.5 10*3/uL 1.0 - 4.3 10*3/uL [facility] Lymphocytes/100 WBC (Bld) 33.0 % 15.0 - 45.0 % [facility] MCH (RBC) [Entitic mass] 30.3 pg 26.0 - 34.0 pg [facility] MCHC (RBC) [Mass/Vol] 32.6 % 30.5 - 36.0 % [facility] MCV (RBC) [Entitic vol] 93.1 fL 77.0 - 99.0 fL [facility] Monocytes (Bld) [#/Vol] 0.5 10*3/uL 0.0 - 0.9 10*3/uL [facility] Monocytes/100 WBC (Bld) 10.5 % 5.0 - 13.0 % [facility] Neutrophils (Bld) [#/Vol] 2.4 10*3/uL 1.8 - 7.5 10*3/uL [facility] Neutrophils/100 WBC (Bld) 52.5 % 38.0 - 82.0 % [facility] Nucleated RBC/100 WBC (Bld) [Ratio] 0.0 % [facility] Platelet mean volume (Bld) [Entitic vol] 10.4 fL 9.0 - 12.7 fL [facility] Platelets (Bld) [#/Vol] 207 10*3/uL 140 - 440 10*3/uL [facility] RBC (Bld) [#/Vol] 3.20 10*6/uL Low 3.80 - 5.2 0 10*6/uL [facility] WBC (Bld) [#/Vol] 4.5 10*3/uL 3.6 - 10.7 10*3/uL [facility] CBC WITH AUTO DIFFERENTIALon 04-06-2024 Basophils (Bld) [#/Vol] 0.1 10*3/uL Normal 0.0-0.2 [facility] Comment on above: Performed By: #### L [id number] ####Improvement Auditor: VELMA VALADEZ ([id number])[facility])[address] [place] [address] Basophils/100 WBC (Bld) 1.1 % Normal 0.0-2.0 [facility] Comment on above: Performed By: #### L [id number] ####Improvement Auditor: VELMA VALADEZ ([phone])[facility])[address] [place] [address] Eosinophils (Bld) [#/Vol] 0.1 10*3/uL Normal 0.0-0.5 [facility] Comment on above: Performed By: #### L [id number] ####Improvement Auditor: VELMA VALADEZ ([phone])[facility] [facility] [place] [address] Eosinophils/100 WBC (Bld) 2.7 % Normal 0.0-6.0 [facility] Comment on above: Performed By: #### L [id number] ####Improvement Auditor: VELMA VALADEZ ([phone])[facility] ([facility])[address] [place] [address] Erythrocyte distribution width (RBC) [Ratio] 14.3 % Normal 11.5-15.0 [facility] Comment on above: Performed By: #### L [id number] ####Improvement Auditor: VELMA [id number])[facility])[address] [place] [address] Hematocrit (Bld) [Volume fraction] 29.8 % Low 35.0-47.0 [facility] Comment on above: Performed By: #### L [id number] ####Improvement Auditor: VELMA VALADEZ ([phone])[facility])[address] [place] [address] Hemoglobin (Bld) [Mass/Vol] 9.7 g/dL Low 11.7-16.0 [facility] Comment on above: Performed By: #### L [id number] ####Improvement Auditor: VELMA VALADEZ ([phone])[facility])[address] [place] [address] IMMATURE GRANS % 0.2 % Normal 0.0-2.0 [facility] Comment on above: Performed By: #### L [id number] ####Improvement Auditor: VELMA VALADEZ ([id number])[facility])[address] [place] [address] IMMATURE GRANS ABSOLUTE 0.0 10*3/uL Normal <0.1 [facility] Comment on above: Performed By: #### L [id number] ####Improvement Auditor: VELMA VALADEZ ([phone])[facility])[address] [place] [address] Lymphocytes (Bld) [#/Vol] 1.5 10*3/uL Normal 1.0-4.3 [facility] Comment on above: Performed By: #### L [id number] ####Improvement Auditor: VELMA VALADEZ ([id number])[facility])[address] [place] [address] Lymphocytes/100 WBC (Bld) 33.0 % Normal 15.0-45.0 [facility] Comment on above: Performed By: #### L [id number] ####Improvement Auditor: VELMA VALADEZ ([phone])[facility])[address] [place] [address] MCH (RBC) [Entitic mass] 30.3 pg Normal 26.0-34.0 [facility] Comment on above: Performed By: #### L [id number] ####Improvement Auditor: VELMA VALADEZ ([phone])[facility])[address] [place] [address] MCHC 32.6 % Normal 30.5-36.0 [facility] Comment on above: Performed By: #### L [id number] ####Improvement Auditor: VELMA VALADEZ ([id number])[facility])[address] [place] [address] MCV (RBC) [Entitic vol] 93.1 fL Normal 77.0-99.0 [facility] Comment on above: Performed By: #### L [id number] ####Improvement Auditor: VELMA VALADEZ ([id number])[facility])[address] [place] [address] Monocytes (Bld) [#/Vol] 0.5 10*3/uL Normal 0.0-0.9 [facility] Comment on above: Performed By: #### L [id number] ####Improvement Auditor: VELMA VALADEZ ([id number])[facility])[address] [place] [address] Monocytes/100 WBC (Bld) 10.5 % Normal 5.0-13.0 [facility] Comment on above: Performed By: #### L [id number] ####Improvement Auditor: VELMA VALADEZ ([phone])[facility])[address] [place] [address] NEUTROPHILS ABSOLUTE 2.4 10*3/uL Normal 1.8-7.5 [facility] Comment on above: Performed By: #### L [id number] ####Improvement Auditor: VELMA VALADEZ ([phone])[facility])[address] [place] [address] Neutrophils/100 WBC (Bld) 52.5 % Normal 38.0-82.0 [facility] Comment on above: Performed By: #### L [id number] ####Improvement Auditor: VELMA VALADEZ ([phone])[facility])[address] [place] [address] NRBC 0.0 /100 WBCs Normal 0.0-2.0 [facility] Comment on above: Performed By: #### L [id number] ####Improvement Auditor: VELMA VALADEZ ([id number])[facility])[address] [place] [address] Platelet mean volume (Bld) [Entitic vol] 10.4 fL Normal 9.0-12.7 [facility] Comment on above: Performed By: #### L [id number] ####Improvement Auditor: VELMA VALADEZ ([id number])[facility])[address] [place] [address] Platelets (Bld) [#/Vol] 207 10*3/uL Normal 140-440 [facility] Comment on above: Performed By: #### L [id number] ####Improvement Auditor: VELMA VALADEZ ([id number])[facility])[address] [place] [address] RBC (Bld) [#/Vol] 3.20 10*6/uL Low 3.80-5.20 [facility] Comment on above: Performed By: #### L [id number] ####Improvement Auditor: VELMA VALADEZ ([id number])[facility])[address] [place] [address] WBC (Bld) [#/Vol] 4.5 10*3/uL Normal 3.6-10.7 [facility] Comment on above: Performed By: #### L [id number] ####Improvement Auditor: VELMA VALADEZ ([id number])[facility])[address] [place] [address] No Panel Informationon 04-06 There is no interpretation needed for this exam. IMAGING Nursing Noteon 04-06-2024 Nursing Note Patient report rader d to 4N RN and denies any further questions. Patient resting comfortably and no signs of distress. Per resident patient to lay flat for 2 hours and restart heparin GTT at 1215. Transport notified. Normal [facility] Op Noteon 04-06-2024 Op Note Normal [facility] Progress Noteon 04-06-2024 Progress Note Normal [facility] Progress Note Normal [facility] Progress Note Normal [facility] aPTT Coag (Bld) [Time]on aPTT Coag (PPP) [Time] 43.3 s High 20.0 - 30.5 s [facility] Interpretation and review of laboratory results Abnormal [facility] NOTE: The therapeuti c time for Heparin anticoagulation, based on Xa activity inhibition, is an APTT of 46-80 seconds. [facility] aPTT Coag (PPP) [Time] 97.6 s High 20.0 - 30.5 s [facility] Interpretation and review of laboratory results Abnormal [facility] NOTE: The therapeuti c time for Heparin anticoagulation, based on Xa activity inhibition, is an APTT of 46-80 seconds. [facility] 36on 04-05-2024 36 Surgery: Inpatient R LE venous mechanical thrombectomy Date of surgery: 04/06/24 Pre-testing: inpatient CPT codes: 89145 ICD 10: I82.401 Post-op or OV: Adriane to schedule Reps: Selvin Elaine) notified 04/05/24 Normal [facility] APTTon 04-05-2024 aPTT Coag (Bld) [Time] 76.6 s High 20.0-30.5 [facility] Comment on above: Result Comment: BUBBA Garcia COMMENTS:NOTE: The therapeutic time for Heparin anticoagulation, based on Xa activity inhibition, is an APTT of 46-80 seconds. Performed By: #### L AB325, [id number] ####Improvement Auditor: VELMA VALADEZ ([phone])[address] aPTT Coag (Bld) [Time] 69.9 s High 20.0-30.5 [facility] Comment on above: Result Comment: BUBBA Garcia COMMENTS:NOTE: The therapeutic time for Heparin anticoagulation, based on Xa activity inhibition, is an APTT of 46-80 seconds. Performed By: #### L AB325 ####Improvement Auditor: VELMA VALADEZ ([phone])[facility])[address] [place] [address] aPTT Coag (Bld) [Time] 88.8 s High 20.0-30.5 [facility] Comment on above: Result Comment: BUBBA Garcia COMMENTS:NOTE: The therapeutic time for Heparin anticoagulation, based on Xa activity inhibition, is an APTT of 46-80 seconds. Performed By: #### L AB320, [id number] ####Improvement Auditor: VELMA VALADEZ ([id number])[facility])[address] [place] [address] aPTT Coag (Bld) [Time] 109.7 s High 20.0-30.5 [facility] Comment on above: Result Comment: BUBBA Garcia COMMENTS:NOTE: The therapeutic time for Heparin anticoagulation, based on Xa activity inhibition, is an APTT of 46-80 seconds. Performed By: #### L AB325 ####Improvement Auditor: VELMA VALADEZ ([phone])[facility])[address] [place] [address] BASIC METABOLIC PANELon 09- Anion gap [Moles/Vol] 3 mmol/L Normal 3-13 [facility] Comment on above: Performed By: #### L AB15 ####Improvement Auditor: VELMA VALADEZ ([id number])[facility])[address] [place] [address] Calcium [Mass/Vol] 8.7 mg/dL Normal 8.4-10.4 [facility] Comment on above: Performed By: #### L AB15 ####Improvement Auditor: VELMA VALADEZ ([phone])[facility])[address] [place] [address] Chloride [Moles/Vol] 113 mmol/L High 98-107 [facility] Comment on above: Performed By: #### L AB15 ####Improvement Auditor: VELMA [id number])[facility])[address] [place] [address] CO2 [Moles/Vol] 17 mmol/L Low 22-30 [facility] Comment on above: Performed By: #### L AB15 ####Improvement Auditor: VELMA VALADEZ ([id number])[facility] [place] [address] Creatinine [Mass/Vol] 1.12 mg/dL High 0.52-1.04 [facility] Comment on above: Performed By: #### L AB15 ####Improvement Auditor: VELMA VALADEZ ([phone])[facility])[address] [place] [address] GLOMERULAR FILTRATION RATE ML/MIN/1.73 SQ M.PREDICTED 48.6 mL/min/1.73m*2 Low >60.0 [facility] Comment on above: Result Comment: Calc ulation based on the Chronic Kidney Disease Epidemiology Collaboration (CKD-EPI) equation refit without adjustment for race Performed By: #### L AB15 ####Improvement Auditor: VELMA VALADEZ ([id number])[facility] [place] [address] Glucose [Mass/Vol] 102 mg/dL High 70-100 [facility] Comment on above: Performed By: #### L AB15 ####Improvement Auditor: VELMA VALADEZ ([id number])[facility])[address] [place] [address] Potassium [Moles/Vol] 4.8 mmol/L Normal 3.5-5.1 [facility] Comment on above: Performed By: #### L AB15 ####Improvement Auditor: VELMA VALADEZ ([phone])[facility])[address] [place] [address] Sodium [Moles/Vol] 133 mmol/L Low 135-145 [facility] Comment on above: Performed By: #### L AB15 ####Improvement Auditor: VELMA VALADEZ ([id number])[facility])[address] [place] [address] Urea nitrogen [Mass/Vol] 25 mg/dL High 7-17 [facility] Comment on above: Performed By: #### L AB15 ####Improvement Auditor: VELMA VALADEZ ([id number])[facility] ([facility])[address] Basic metabolic 1998 panelon 04-05-2024 Anion gap [Moles/Vol] 3 mmol/L 3 - 13 mmol/L [facility] Calcium [Mass/Vol] 8.7 mg/dL 8.4 - 10. 4 mg/dL [facility] Chloride [Moles/Vol] 113 mmol/L High 98 - 10 7 mmol/L [facility] CO2 [Moles/Vol] 17 mmol/L Low 22 - 30 mmol/L [facility] Creatinine [Mass/Vol] 1.12 mg/dL High 0.52 - 1.04 mg/dL [facility] GFR/1.73 sq M.predicted (S/P/Bld) [Vol rate/Area] 48.6 mL/min Low - PINF [facility] Comment on above: Calculation based on the Chronic Kidney Disease Epidemiology Collaboration (CKD-EPI) equation refit without adjustment for race Glucose [Mass/Vol] 102 mg/dL High 70 - 100 mg/dL [facility] Interpretation and review of laboratory results Abnormal [facility] Potassium [Moles/Vol] 4.8 mmol/L 3.5 - 5.1 mmol/L [facility] Sodium [Moles/Vol] 133 mmol/L Low 135 - 145 mmol/L [facility] Urea nitrogen [Mass/Vol] 25 mg/dL High 7 - 17 mg/dL [facility] CARECOORDon 04-05-2024 CARECOORD Normal [facility] CBC W Auto Differential pane l (Bld)on 04-05-2024 Basophils (Bld) [#/Vol] 0.1 10*3/uL 0.0 - 0.2 10*3/uL [facility] Basophils/100 WBC (Bld) 1.0 % 0.0 - 2.0 % [facility] Eosinophils (Bld) [#/Vol] 0.2 10*3/uL 0.0 - 0.5 10*3/uL [facility] Eosinophils/100 WBC (Bld) 2.9 % 0.0 - 6.0 % [facility] Erythrocyte distribution width (RBC) [Ratio] 14.4 % 11.5 - 15.0 % [facility] Hematocrit (Bld) [Volume fraction] 32.3 % Low 35.0 - 47.0 % [facility] Hemoglobin (Bld) [Mass/Vol] 10.6 g/dL Low 11.7 - 16.0 g/dL [facility] Immature granulocytes (Bld) [#/Vol] 0.0 10*3/uL NINF - 0.1 10*3/uL [facility] Immature granulocytes/100 WBC (Bld) 0.3 % 0.0 - 2.0 % [facility] Interpretation and review of laboratory results Abnormal [facility] Lymphocytes (Bld) [#/Vol] 1.7 10*3/uL 1.0 - 4.3 10*3/uL [facility] Lymphocytes/100 WBC (Bld) 27.5 % 15.0 - 45.0 % [facility] MCH (RBC) [Entitic mass] 30.7 pg 26.0 - 34.0 pg [facility] MCHC (RBC) [Mass/Vol] 32.8 % 30.5 - 36.0 % [facility] MCV (RBC) [Entitic vol] 93.6 fL 77.0 - 99.0 fL [facility] Monocytes (Bld) [#/Vol] 0.6 10*3/uL 0.0 - 0.9 10*3/uL [facility] Monocytes/100 WBC (Bld) 9.0 % 5.0 - 13.0 % [facility] Neutrophils (Bld) [#/Vol] 3.6 10*3/uL 1.8 - 7.5 10*3/uL [facility] Neutrophils/100 WBC (Bld) 59.3 % 38.0 - 82.0 % [facility] Nucleated RBC/100 WBC (Bld) [Ratio] 0.0 % [facility] Platelet mean volume (Bld) [Entitic vol] 10.1 fL 9.0 - 12.7 fL [facility] Platelets (Bld) [#/Vol] 204 10*3/uL 140 - 440 10*3/uL [facility] RBC (Bld) [#/Vol] 3.45 10*6/uL Low 3.80 - 5.2 0 10*6/uL [facility] WBC (Bld) [#/Vol] 6.1 10*3/uL 3.6 - 10.7 10*3/uL [facility] CBC WITH AUTO DIFFERENTIALon 04-05-2024 Basophils (Bld) [#/Vol] 0.1 10*3/uL Normal 0.0-0.2 [facility] Comment on above: Performed By: #### L [id number] ####Improvement Auditor: VELMA VALADEZ ([phone])[facility])[address] [place] [address] Basophils/100 WBC (Bld) 1.0 % Normal 0.0-2.0 [facility] Comment on above: Performed By: #### L [id number] ####Improvement Auditor: VELMA VALADEZ ([phone])[facility])[address] [place] [address] Eosinophils (Bld) [#/Vol] 0.2 10*3/uL Normal 0.0-0.5 [facility] Comment on above: Performed By: #### L [id number] ####Improvement Auditor: VELMA VALADEZ ([phone])[facility])[address] [place] [address] Eosinophils/100 WBC (Bld) 2.9 % Normal 0.0-6.0 [facility] Comment on above: Performed By: #### L [id number] ####Improvement Auditor: VELMA VALADEZ ([id number])[facility])[address] [place] [address] Erythrocyte distribution width (RBC) [Ratio] 14.4 % Normal 11.5-15.0 [facility] Comment on above: Performed By: #### L [id number] ####Improvement Auditor: VELMA VALADEZ ([id number])[facility])[address] [place] [address] Hematocrit (Bld) [Volume fraction] 32.3 % Low 35.0-47.0 [facility] Comment on above: Performed By: #### L [id number] ####Improvement Auditor: VELMA VALADEZ ([phone])[facility])[address] [place] [address] Hemoglobin (Bld) [Mass/Vol] 10.6 g/dL Low 11.7-16.0 [facility] Comment on above: Performed By: #### L [id number] ####Improvement Auditor: VELMA VALADEZ ([phone])[facility])[address] [place] [address] IMMATURE GRANS % 0.3 % Normal 0.0-2.0 [facility] Comment on above: Performed By: #### L [id number] ####Improvement Auditor: VELMA VALADEZ ([id number])[address] IMMATURE GRANS ABSOLUTE 0.0 10*3/uL Normal <0.1 [facility] Comment on above: Performed By: #### L [id number] ####Improvement Auditor: VELMA VALADEZ ([phone])[facility])[address] [place] [address] Lymphocytes (Bld) [#/Vol] 1.7 10*3/uL Normal 1.0-4.3 [facility] Comment on above: Performed By: #### L [id number] ####Improvement Auditor: VELMA VALADEZ ([phone])[address] Lymphocytes/100 WBC (Bld) 27.5 % Normal 15.0-45.0 [facility] Comment on above: Performed By: #### L [id number] ####Improvement Auditor: VELMA VALADEZ ([phone])[facility])[address] [place] [address] MCH (RBC) [Entitic mass] 30.7 pg Normal 26.0-34.0 [facility] Comment on above: Performed By: #### L [id number] ####Improvement Auditor: VELMA VALADEZ ([phone])[facility])[address] [place] [address] MCHC 32.8 % Normal 30.5-36.0 [facility] Comment on above: Performed By: #### L [id number] ####Improvement Auditor: VELMA VALADEZ ([id number])[facility])[address] [place] [address] MCV (RBC) [Entitic vol] 93.6 fL Normal 77.0-99.0 [facility] Comment on above: Performed By: #### L [id number] ####Improvement Auditor: VELMA VALADEZ ([id number])[facility])[address] [place] [address] Monocytes (Bld) [#/Vol] 0.6 10*3/uL Normal 0.0-0.9 [facility] Comment on above: Performed By: #### L [id number] ####Improvement Auditor: VELMA VALADEZ ([id number])[facility])[address] [place] [address] Monocytes/100 WBC (Bld) 9.0 % Normal 5.0-13.0 [facility] Comment on above: Performed By: #### L [id number] ####Improvement Auditor: VELMA VALADEZ ([phone])[facility])[address] [place] [address] NEUTROPHILS ABSOLUTE 3.6 10*3/uL Normal 1.8-7.5 [facility] Comment on above: Performed By: #### L [id number] ####Improvement Auditor: VELMA VALADEZ ([phone])[facility])[address] [place] [address] Neutrophils/100 WBC (Bld) 59.3 % Normal 38.0-82.0 [facility] Comment on above: Performed By: #### L [id number] ####Improvement Auditor: VELMA VALADEZ ([phone])[facility])[address] [place] [address] NRBC 0.0 /100 WBCs Normal 0.0-2.0 [facility] Comment on above: Performed By: #### L [id number] ####Improvement Auditor: VELMA VALADEZ ([id number])[facility])[address] [place] [address] Platelet mean volume (Bld) [Entitic vol] 10.1 fL Normal 9.0-12.7 [facility] Comment on above: Performed By: #### L [id number] ####Improvement Auditor: VELMA VALADEZ ([phone])[facility])[address] [place] [address] Platelets (Bld) [#/Vol] 204 10*3/uL Normal 140-440 [facility] Comment on above: Performed By: #### L [id number] ####Improvement Auditor: VELMA VALADEZ ([phone])[facility])[address] [place] [address] RBC (Bld) [#/Vol] 3.45 10*6/uL Low 3.80-5.20 [facility] Comment on above: Performed By: #### L [id number] ####Improvement Auditor: VELMA VALADEZ ([id number])[facility])[address] [place] [address] WBC (Bld) [#/Vol] 6.1 10*3/uL Normal 3.6-10.7 [facility] Comment on above: Performed By: #### L [id number] ####Improvement Auditor: VELMA VALADEZ ([id number])[facility])[address] [place] [address] IDNon 04-05-2024 IDN The patient is Moderately Stable - Low risk of patient condition declining or worsening The patient's goals for the shift include met The clinical goals for the shift include met Normal [facility] Laboratory - Coagulationon 0 04-05-2024 PT Coag (Bld) [Time] 11.4 s 9.0 - 1 2.0 s [facility] PT Coag (Bld) [Time] 11.9 s 9.0 - 1 2.0 s [facility] No Panel Informationon 04-05 [facility] PROTHROMBIN TIMEon INR Coag (PPP) [Relative time] 1.0 {INR} Normal 0.9-1.1 [facility] Comment on above: Performed By: #### L AB325, [id number] ####Improvement Auditor: VELMA VALADEZ ([phone])[facility])[address] [place] [address] PT Coag (PPP) [Time] 11.4 s Normal 9.0-12.0 [facility] Comment on above: Performed By: #### L AB325, [id number] ####Improvement Auditor: VELMA VALADEZ ([id number])[facility])[address] [place] [address] INR Coag (PPP) [Relative time] 1.1 {INR} Normal 0.9-1.1 [facility] Comment on above: Result Comment: Timothy mmended Anticoagulant Therapy: SEE BELOW----- INR of 2.0 - 3.0 : - Prophylaxis of Venous Thrombosis (high-risk surgery) - Treatment of Venous Thrombosis - Treatment of Pulmonary Embolism (Includes tissue heart valves, Acute Myocardial Infarction to prevent systemic embolism, Valvular Heart Disease, and Atrial Fibrillation)----- INR of 2.5 - 3.5 : - Mechanical Prosthetic Valves (high risk) - If oral anticoagulant therapy is used to prevent Myocardial Infarction Performed By: #### Weston AB320, [id number] ####Improvement Auditor: VELMA VALADEZ ([phone])[facility])[address] [place] [address] [place] PT Coag (PPP) [Time] 11.9 s Normal 9.0-12.0 [facility] Comment on above: Performed By: #### L AB320, [id number] ####Improvement Auditor: VELMA VALADEZ ([phone])[facility])[address] [place] [address] [place] PT Coag (Bld) [Time]on 04-05 INR Coag (PPP) [Relative time] 1.0 {INR} 0.9 - 1.1 [facility] Interpretation and review of laboratory results Normal [facility] INR Coag (PPP) [Relative time] 1.1 {INR} 0.9 - 1.1 [facility] Comment on above: Recommended Anticoag ulant Therapy: SEE BELOW ----- INR of 2.0 - 3.0 : - Prophylaxis of Venous Thrombosis (high-risk surgery) - Treatment of Venous Thrombosis - Treatment of Pulmonary Embolism (Includes tissue heart valves, Acute Myocardial Infarction to prevent systemic embolism, Valvular Heart Disease, and Atrial Fibrillation) ----- INR of 2.5 - 3.5 : - Mechanical Prosthetic Valves (high risk) - If oral anticoagulant therapy is used to prevent Myocardial Infarction Interpretation and review of laboratory results Normal [facility] Progress Noteon 04-05-2024 Progress Note Normal [facility] Progress Note Nutrition rescreen completed. Chart reviewed. Patient to be monitored and followed by the diet orthodontic laboratory technician. FADI Harmon Normal [facility] Progress Note Normal [facility] Progress Note Normal [facility] aPTT Coag (Bld) [Time]on aPTT Coag (PPP) [Time] 76.6 s High 20.0 - 30.5 s [facility] Interpretation and review of laboratory results Abnormal [facility] NOTE: The therapeuti c time for Heparin anticoagulation, based on Xa activity inhibition, is an APTT of 46-80 seconds. [facility] aPTT Coag (PPP) [Time] 69.9 s High 20.0 - 30.5 s [facility] Interpretation and review of laboratory results Abnormal [facility] NOTE: The therapeuti c time for Heparin anticoagulation, based on Xa activity inhibition, is an APTT of 46-80 seconds. [facility] aPTT Coag (PPP) [Time] 88.8 s High 20.0 - 30.5 s [facility] Interpretation and review of laboratory results Abnormal [facility] NOTE: The therapeuti c time for Heparin anticoagulation, based on Xa activity inhibition, is an APTT of 46-80 seconds. [facility] aPTT Coag (Bld) [Time]Ordere d By: Juni Millard on 04-05-2024 aPTT Coag (PPP) [Time] 109.7 s High 20.0 - 30.5 s [facility] Interpretation and review of laboratory results Abnormal [facility] NOTE: The therapeuti c time for Heparin anticoagulation, based on Xa activity inhibition, is an APTT of 46-80 seconds. [facility] [id number] 04-04-2024 [id number] Normal [facility] [id number] Normal [facility] APTTon 04-04-2024 aPTT Coag (Bld) [Time] 81.8 s High 20.0-30.5 [facility] Comment on above: Result Comment: BUBBA Garcia COMMENTS:NOTE: The therapeutic time for Heparin anticoagulation, based on Xa activity inhibition, is an APTT of 46-80 seconds. Performed By: #### L [id number] ####Improvement Auditor: VELMA VALADEZ ([id number])[address] aPTT Coag (Bld) [Time] 81.4 s High 20.0-30.5 [facility] Comment on above: Result Comment: BUBBA Garcia COMMENTS:NOTE: The therapeutic time for Heparin anticoagulation, based on Xa activity inhibition, is an APTT of 46-80 seconds. Performed By: #### L [id number] ####Improvement Auditor: VELMA [id number])[address] aPTT Coag (Bld) [Time] 132.2 s Critically high 20.0-30. 5 [facility] Comment on above: Result Comment: BUBBA Garcia COMMENTS:NOTE: The therapeutic time for Heparin anticoagulation, based on Xa activity inhibition, is an APTT of 46-80 seconds. Performed By: #### L [id number] ####Improvement Auditor: VELMA [id number])[facility])[address] [place] [address] BASIC METABOLIC PANELon 03-18 Anion gap [Moles/Vol] 8 mmol/L Normal 3-13 [facility] Comment on above: Performed By: #### L AB15 ####Improvement Auditor: VELMA [id number])[address] [place] [address] [place] Calcium [Mass/Vol] 9.3 mg/dL Normal 8.4-10.4 [facility] Comment on above: Performed By: #### L AB15 ####Improvement Auditor: VEMLA VALADEZ ([id number])[facility] [place] [address] Chloride [Moles/Vol] 110 mmol/L High 98-107 [facility] Comment on above: Performed By: #### L AB15 ####Improvement Auditor: VELMA VALADEZ ([id number])[facility] ([facility])[address] [place] [address] CO2 [Moles/Vol] 18 mmol/L Low 22-30 [facility] Comment on above: Performed By: #### L AB15 ####Improvement Auditor: VELMA VALADEZ ([id number])[facility])[address] [place] [address] Creatinine [Mass/Vol] 1.45 mg/dL High 0.52-1.04 [facility] Comment on above: Performed By: #### L AB15 ####Improvement Auditor: VELMA VALADEZ ([id number])[facility] ([facility])[address] [place] [address] GLOMERULAR FILTRATION RATE ML/MIN/1.73 SQ M.PREDICTED 35.6 mL/min/1.73m*2 Low >60.0 [facility] Comment on above: Result Comment: Calc ulation based on the Chronic Kidney Disease Epidemiology Collaboration (CKD-EPI) equation refit without adjustment for race Performed By: #### L AB15 ####Improvement Auditor: VELMA VALADEZ ([id number])[facility] ([facility])[address] [place] [address] [place] Glucose [Mass/Vol] 100 mg/dL Normal 70-100 [facility] Comment on above: Performed By: #### L AB15 ####Improvement Auditor: VELMA VALADEZ ([id number])[facility] ([facility])[address] [place] [address] [place] Potassium [Moles/Vol] 4.5 mmol/L Normal 3.5-5.1 [facility] Comment on above: Performed By: #### L AB15 ####Improvement Auditor: VELMA VALADEZ ([id number])[facility] ([facility])[address] [place] [address] Sodium [Moles/Vol] 135 mmol/L Normal 135-145 [facility] Comment on above: Performed By: #### L AB15 ####Improvement Auditor: VELMA VALADEZ ([id number])[facility])[address] [place] [address] Urea nitrogen [Mass/Vol] 30 mg/dL High 7-17 [facility] Comment on above: Performed By: #### L AB15 ####Improvement Auditor: VELMA VALADEZ ([id number])[facility] ([facility])[address] [place] [address] Basic metabolic 1998 panelOr dered By: Marielle Garcia on 04-04-2024 Anion gap [Moles/Vol] 8 mmol/L 3 - 13 mmol/L [facility] Calcium [Mass/Vol] 9.3 mg/dL 8.4 - 10. 4 mg/dL [facility] Chloride [Moles/Vol] 110 mmol/L High 98 - 10 7 mmol/L [facility] CO2 [Moles/Vol] 18 mmol/L Low 22 - 30 mmol/L [facility] Creatinine [Mass/Vol] 1.45 mg/dL High 0.52 - 1.04 mg/dL [facility] GFR/1.73 sq M.predicted (S/P/Bld) [Vol rate/Area] 35.6 mL/min Low - PINF [facility] Comment on above: Calculation based on the Chronic Kidney Disease Epidemiology Collaboration (CKD-EPI) equation refit without adjustment for race Glucose [Mass/Vol] 100 mg/dL 70 - 100 mg/dL [facility] Interpretation and review of laboratory results Abnormal [facility] Potassium [Moles/Vol] 4.5 mmol/L 3.5 - 5.1 mmol/L [facility] Sodium [Moles/Vol] 135 mmol/L 135 - 145 mmol/L [facility] Urea nitrogen [Mass/Vol] 30 mg/dL High 7 - 17 mg/dL [facility] CARECOORDon 04-04-2024 CARECOORD Normal [facility] CBC W Auto Differential pane l (Bld)on 04-04-2024 Basophils (Bld) [#/Vol] 0.1 10*3/uL 0.0 - 0.2 10*3/uL [facility] Basophils/100 WBC (Bld) 0.7 % 0.0 - 2.0 % [facility] Eosinophils (Bld) [#/Vol] 0.3 10*3/uL 0.0 - 0.5 10*3/uL [facility] Eosinophils/100 WBC (Bld) 3.2 % 0.0 - 6.0 % [facility] Erythrocyte distribution width (RBC) [Ratio] 14.2 % 11.5 - 15.0 % [facility] Hematocrit (Bld) [Volume fraction] 38.8 % 35.0 - 47.0 % [facility] Hemoglobin (Bld) [Mass/Vol] 12.5 g/dL 11.7 - 16.0 g/dL [facility] Immature granulocytes (Bld) [#/Vol] 0.1 10*3/uL High NINF - 0.1 10*3/uL [facility] Immature granulocytes/100 WBC (Bld) 0.6 % 0.0 - 2.0 % [facility] Interpretation and review of laboratory results Abnormal [facility] Lymphocytes (Bld) [#/Vol] 1.6 10*3/uL 1.0 - 4.3 10*3/uL [facility] Lymphocytes/100 WBC (Bld) 19.2 % 15.0 - 45.0 % [facility] MCH (RBC) [Entitic mass] 29.7 pg 26.0 - 34.0 pg [facility] MCHC (RBC) [Mass/Vol] 32.2 % 30.5 - 36.0 % [facility] MCV (RBC) [Entitic vol] 92.2 fL 77.0 - 99.0 fL [facility] Monocytes (Bld) [#/Vol] 0.8 10*3/uL 0.0 - 0.9 10*3/uL [facility] Monocytes/100 WBC (Bld) 9.9 % 5.0 - 13.0 % [facility] Neutrophils (Bld) [#/Vol] 5.3 10*3/uL 1.8 - 7.5 10*3/uL [facility] Neutrophils/100 WBC (Bld) 66.4 % 38.0 - 82.0 % [facility] Nucleated RBC/100 WBC (Bld) [Ratio] 0.0 % [facility] Platelet mean volume (Bld) [Entitic vol] 10.0 fL 9.0 - 12.7 fL [facility] Platelets (Bld) [#/Vol] 266 10*3/uL 140 - 440 10*3/uL [facility] RBC (Bld) [#/Vol] 4.21 10*6/uL 3.80 - 5.2 0 10*6/uL [facility] WBC (Bld) [#/Vol] 8.1 10*3/uL 3.6 - 10.7 10*3/uL [facility] CBC WITH AUTO DIFFERENTIALon 04-04-2024 Basophils (Bld) [#/Vol] 0.1 10*3/uL Normal 0.0-0.2 [facility] Comment on above: Performed By: #### L [id number] ####Improvement Auditor: VELMA VALADEZ ([id number])[facility])[address] [place] [address] Basophils/100 WBC (Bld) 0.7 % Normal 0.0-2.0 [facility] Comment on above: Performed By: #### L [id number] ####Improvement Auditor: VELMA VALADEZ ([id number])[facility])[address] [place] [address] [place] Eosinophils (Bld) [#/Vol] 0.3 10*3/uL Normal 0.0-0.5 [facility] Comment on above: Performed By: #### L [id number] ####Improvement Auditor: VELMA VALADEZ ([id number])[facility])[address] [place] [address] Eosinophils/100 WBC (Bld) 3.2 % Normal 0.0-6.0 [facility] Comment on above: Performed By: #### L [id number] ####Improvement Auditor: VELMA [id number])[facility] ([facility])[address] [place] [address] Erythrocyte distribution width (RBC) [Ratio] 14.2 % Normal 11.5-15.0 [facility] Comment on above: Performed By: #### L [id number] ####Improvement Auditor: VELMA VALADEZ ([id number])[facility])[address] [place] [address] Hematocrit (Bld) [Volume fraction] 38.8 % Normal 35.0-47.0 [facility] Comment on above: Performed By: #### L [id number] ####Improvement Auditor: VELMA VALADEZ ([id number])[facility])[address] [place] [address] Hemoglobin (Bld) [Mass/Vol] 12.5 g/dL Normal 11.7-16.0 [facility] Comment on above: Performed By: #### L [id number] ####Improvement Auditor: VELMA VALADEZ ([id number])[facility] ([facility])[address] [place] [address] IMMATURE GRANS % 0.6 % Normal 0.0-2.0 [facility] Comment on above: Performed By: #### L [id number] ####Improvement Auditor: VELMA VALADEZ ([id number])[facility])[address] [place] [address] IMMATURE GRANS ABSOLUTE 0.1 10*3/uL High <0.1 [facility] Comment on above: Performed By: #### L [id number] ####Improvement Auditor: VELMA VALADEZ ([id number])[facility])[address] [place] [address] Lymphocytes (Bld) [#/Vol] 1.6 10*3/uL Normal 1.0-4.3 [facility] Comment on above: Performed By: #### L [id number] ####Improvement Auditor: VELMA VALADEZ ([id number])[facility])[address] [place] [address] Lymphocytes/100 WBC (Bld) 19.2 % Normal 15.0-45.0 [facility] Comment on above: Performed By: #### L [id number] ####Improvement Auditor: VELMA VALADEZ ([id number])[facility])[address] [place] [address] MCH (RBC) [Entitic mass] 29.7 pg Normal 26.0-34.0 [facility] Comment on above: Performed By: #### L [id number] ####Improvement Auditor: VELMA VALADEZ ([phone])[facility])[address] [place] [address] MCHC 32.2 % Normal 30.5-36.0 [facility] Comment on above: Performed By: #### L [id number] ####Improvement Auditor: VELMA VALADEZ ([id number])[facility])[address] [place] [address] MCV (RBC) [Entitic vol] 92.2 fL Normal 77.0-99.0 [facility] Comment on above: Performed By: #### L [id number] ####Improvement Auditor: VELMA VALADEZ ([id number])[facility])[address] [place] [address] Monocytes (Bld) [#/Vol] 0.8 10*3/uL Normal 0.0-0.9 [facility] Comment on above: Performed By: #### L [id number] ####Improvement Auditor: VELMA VALADEZ ([id number])[facility])[address] [place] [address] Monocytes/100 WBC (Bld) 9.9 % Normal 5.0-13.0 [facility] Comment on above: Performed By: #### L [id number] ####Improvement Auditor: VELMA VALADEZ ([id number])[facility])[address] [place] [address] NEUTROPHILS ABSOLUTE 5.3 10*3/uL Normal 1.8-7.5 [facility] Comment on above: Performed By: #### L [id number] ####Improvement Auditor: VELMA VALADEZ ([id number])[facility])[address] [place] [address] Neutrophils/100 WBC (Bld) 66.4 % Normal 38.0-82.0 [facility] Comment on above: Performed By: #### L [id number] ####Improvement Auditor: VELMA VALADEZ ([id number])[facility] ([facility])[address] [place] [address] NRBC 0.0 /100 WBCs Normal 0.0-2.0 [facility] Comment on above: Performed By: #### L [id number] ####Improvement Auditor: VELMA VALADEZ ([id number])[facility])[address] [place] [address] Platelet mean volume (Bld) [Entitic vol] 10.0 fL Normal 9.0-12.7 [facility] Comment on above: Performed By: #### L [id number] ####Improvement Auditor: VELMA VALADEZ ([id number])[facility])[address] [place] [address] Platelets (Bld) [#/Vol] 266 10*3/uL Normal 140-440 [facility] Comment on above: Performed By: #### L [id number] ####Improvement Auditor: VELMA VALADEZ ([id number])[facility] ([facility])[address] [place] [address] RBC (Bld) [#/Vol] 4.21 10*6/uL Normal 3.80-5.20 [facility] Comment on above: Performed By: #### L [id number] ####Improvement Auditor: VELMA VALADEZ ([id number])[facility])[address] [place] [address] WBC (Bld) [#/Vol] 8.1 10*3/uL Normal 3.6-10.7 [facility] Comment on above: Performed By: #### L [id number] ####Improvement Auditor: VELMA VALADEZ ([id number])[facility] [place] [address] Consulton 04-04-2024 Consult Normal [facility] Consult Normal [facility] ECG 12-LEADon 04-04-2024 ECG 12-LEAD IMPRESSION: Atrial fibrillation Borderline T abnormalities, inferior leads Compared to ECG 08/28/11 Sinus rhythm no longer noted Electronically Signed On 04-04-2024 03:48:37 EDT by Sourav Swenson Normal [facility] ED Nursing Noteon 04-04-2024 ED Nursing Note Report to Delia Bond RN 04/04/[address] [facility] ED Nursing Note Multiple attempts ma sheri to call report to [facility] with phone number provided by skidder lever operator, but when phone number dialed RN only gets busy tone. Will try again. Shannon Bond RN 04/04/[address] [facility] ED Nursing Note [facility] at bedside to transport pt to [facility]. Paperwork with EMS Shannon Bond RN 04/04/[address] [facility] IDNon 04-04-2024 IDN The patient is Moderately Stable - Low risk of patient condition declining or worsening The patient's goals for the shift include safety The clinical goals for the shift include therapeutic aptt Normal [facility] IDN [facility] No Panel Informationon 04-04 Left Pop Rfx 1.1 s [facility] Acute extensive DVT in the right lower extremity as described below. The right common iliac vein was not visualized. No evidence of superficial thrombosis in the right lower extremity. 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 Deep venous insufficiency (>1.0 sec) noted in the left popliteal vein. No evidence of superficial thrombosis in the left lower extremity. Right Lower Venous No evidence of superficial thrombosis in the right lower extremity. Common Iliac Vein: Not visualized. External Iliac Vein: Acute occlusive thrombus. Common Femoral Vein: Acute occlusive thrombus. Greater Saphenous Vein: Entire vessel patent, compressible Saphenofemoral Junction: Acute occlusive thrombus. Small Saphenous Vein: Patent, compressible. Profunda Femoral Vein: Acute occlusive thrombus. Femoral Vein: Acute occlusive thrombus. Popliteal Vein: Acute occlusive thrombus. Gastrocnemius Vein: Age indeterminate occlusive thrombus. Soleal Vein: Patent, compressible. Posterior Tibial Vein: Patent, compressible. Peroneal Vein: Acute occlusive thrombus. Attempted to image more proximally however bowel gas prevented CIV imaging. Left Lower Venous No evidence of superficial thrombosis in the left lower extremity. Common Femoral Vein: Chronic non-occlusive thrombus. Greater Saphenous Vein: Enitre vessel patent, compressible. Saphenofemoral Junction: Chronic non-occlusive thrombus. Small Saphenous Vein: Patent, compressible. Profunda Femoral Vein: Patent. Femoral Vein: Patent, normal phasicity, spontaneous, normal augmentation, compressible. Popliteal Vein: Patent, normal phasicity, spontaneous, normal augmentation, compressible. Gastrocnemius Vein: Patent, compressible. Soleal Vein: Patent, compressible. Posterior Tibial Vein: Patent, compressible. Peroneal Vein: Patent, compressible. Deep venous insufficiency (>1.0 sec) noted in the popliteal vein. History of DVT in 2021 Marketing Campaign Analyst Details A george scale, color Doppler imaging, spectral Doppler analysis and B-flow ultrasound was performed. During the study 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 and transverse views were obtained. Pulsed wave doppler was performed. The exam was performed with the patient in the supine position. Overall the study quality was adequate. Study was technically difficult due to: bowel gas. CV CPACS Left MICHELLE 0.62 [facility] Left dorsalis pedis BP 78 mmHg [facility] Left posterior tibial 86 mmHg [facility] Right MICHELLE 0.55 [facility] Right arm BP 139 mmHg [facility] Right dorsalis pedis BP 65 mmHg [facility] Right posterior tibial 76 mmHg [facility] Right side findings: Resting MICHELLE is 0.55. This is moderately decreased. Left side findings: Resting MICHELLE is 0.62. This is moderately decreased. Full PVR not completed secondary to newly diagnosed DVT. MICHELLE Right side findings: Moderately decreased resting MICHELLE. Left side findings: Moderately decreased resting MICHELLE. Right PVR waveforms: Consistent with SEVERE disease - metatarsal region. Consistent with MODERATE disease - ankle. Left PVR waveforms: Consistent with MODERATE disease - ankle and metatarsal region. The right posterior tibial artery and dorsalis pedis artery has monophasic waveforms. The left posterior tibial artery and dorsalis pedis artery has monophasic waveforms. Unable to complete full PVR due to acute DVT of RLE discovered just before PVR testing. Marketing Campaign Analyst Details A spectral Doppler analysis ultrasound was performed. Pulsed volume recording (PVR) was performed. The exam was performed with the patient in the supine position. Overall the study quality was limited. Study was technically difficult due to: IV or catheters and Extensive DVT in RLE limited exam.. CV CPACS Atrial fibrillation Borderline T abnormalities, inferior leads Compared to ECG 08/28/11 Sinus rhythm no longer noted Electronically Signed On 04-04-2024 03:48:37 EDT by Sourav Swenson CV Sourav Ren D O - 04/04/2024 IMPRESSION: Atrial fibrillation Borderline T abnormalities, inferior leads Compared to ECG 08/28/11 Sinus rhythm no longer noted Electronically Signed On 04-04-2024 03:48:37 EDT by Sourav Swenson [employer] No Panel InformationOrdered By: Sourav Swenson on 04-04-2024 P [place]ushing 0 degrees [employer] Work Phone: ND Interval 0 ms [facility] Phone: QRS [place] 40 degrees [employer] Work Phone: QRSD Interval 86 ms [employer] Work Phone: QT Interval 352 ms [facility] Phone: QTC Interval 411 ms [employer] Work Phone: T Wave [place] -3 degrees [employer] Work Phone: [employer] Work Phone: Progress Noteon 04-04-2024 Progress Note Normal [facility] Progress Note Normal [facility] Progress Note Normal [facility] Vital signsOrdered By: Cathy Swenson on 04-04-2024 Heart rate 82 /min bpm [employer] Work Phone: aPTT Coag (Bld) [Time]on aPTT Coag (PPP) [Time] 81.8 s High 20.0 - 30.5 s [employer] Interpretation and review of laboratory results Abnormal [employer] NOTE: The therapeuti c time for Heparin anticoagulation, based on Xa activity inhibition, is an APTT of 46-80 seconds. [facility] aPTT Coag (PPP) [Time] 81.4 s High 20.0 - 30.5 s [facility] Interpretation and review of laboratory results Abnormal [facility] NOTE: The therapeuti c time for Heparin anticoagulation, based on Xa activity inhibition, is an APTT of 46-80 seconds. [facility] aPTT Coag (Bld) [Time]Ordere d By: Devika Eisenberg on 04-04-2024 aPTT Coag (PPP) [Time] 132.2 s Critically high 20 .0 - 30.5 s [facility] Interpretation and review of laboratory results Abnormal [facility] NOTE: The therapeuti c time for Heparin anticoagulation, based on Xa activity inhibition, is an APTT of 46-80 seconds. [facility] APTTon 04-03-2024 aPTT Coag (Bld) [Time] 25.6 s Normal 20.0-30.5 [facility] Comment on above: Result Comment: BUBBA Garcia COMMENTS:NOTE: The therapeutic time for Heparin anticoagulation, based on Xa activity inhibition, is an APTT of 46-80 seconds. Performed By: #### L [id number] ####Improvement Auditor: MRAYLOU MAY ([id number])[facility] ([facility])[address] [place] [address] CBC (HEMOGRAM)on 04-03-2024 Erythrocyte distribution width (RBC) [Ratio] 14.4 % Normal 11.5-15.0 [facility] Comment on above: Performed By: #### L [id number] ####Improvement Auditor: MARYLOU MAY ([id number])[facility] [place] [address] Hematocrit (Bld) [Volume fraction] 38.6 % Normal 35.0-47.0 [facility] Comment on above: Performed By: #### L [id number] ####Improvement Auditor: MARYLOU MAY ([id number])[facility] ([facility])[address] [place] [address] Hemoglobin (Bld) [Mass/Vol] 12.7 g/dL Normal 11.7-16.0 [facility] Comment on above: Performed By: #### L [id number] ####Improvement Auditor: MARYLOU MAY ([id number])[facility] ([facility])[address] MCH (RBC) [Entitic mass] 30.4 pg Normal 26.0-34.0 [facility] Comment on above: Performed By: #### L [id number] ####Improvement Auditor: MARYLOU MAY ([id number])[facility] SYSTEM[facility]ZK[facility] ([facility])[address] MCHC 32.9 % Normal 30.5-36.0 [facility] Comment on above: Performed By: #### L [id number] ####Improvement Auditor: MARYLOU MAY ([id number])[facility] SYSTEMSimran VELASQUEZREHABILIT[facility] HOSPITAL OF SOUTHERN NEW MEXICOBossman ([facility])[address] MCV (RBC) [Entitic vol] 92.3 fL Normal 77.0-99.0 [facility] Comment on above: Performed By: #### L [id number] ####Improvement Auditor: MARYLOU MAY ([id number])[facility] SYSTEM[facility]ran VELASQUEZKANU ([facility])[address] Platelet mean volume (Bld) [Entitic vol] 10.0 fL Normal 9.0-12.7 [facility] Comment on above: Performed By: #### L [id number] ####Improvement Auditor: MARYLOU MAY ([id number])[facility] SYSTEM[facility] VELASQUEZKANU ([facility])[address] Platelets (Bld) [#/Vol] 283 10*3/uL Normal 140-440 [facility] Comment on above: Performed By: #### L [id number] ####Improvement Auditor: MARYLOU MAY ([id number])[facility] SYSTEMSimran [facility]ASQUEZKANU ([facility])[address] RBC (Bld) [#/Vol] 4.18 10*6/uL Normal 3.80-5.20 [facility] Comment on above: Performed By: #### L [id number] ####Improvement Auditor: MARYLOU MAY ([id number])[facility] ([facility])[address] [place] [address] WBC (Bld) [#/Vol] 9.3 10*3/uL Normal 3.6-10.7 [facility] Comment on above: Performed By: #### L [id number] ####Improvement Auditor: MARYLOU SEGURAPerriJHONATHAN ([id number])[facility] ([facility])[address] [place] [address] CBC panel Auto (Bld)on 04-03 Erythrocyte distribution width (RBC) [Ratio] 14.4 % 11.5 - 15.0 % [facility] Hematocrit (Bld) [Volume fraction] 38.6 % 35.0 - 47.0 % [facility] Hemoglobin (Bld) [Mass/Vol] 12.7 g/dL 11.7 - 16.0 g/dL [facility] [facility] Interpretation and review of laboratory results Normal [facility] MCH (RBC) [Entitic mass] 30.4 pg 26.0 - 34.0 pg [facility] MCHC (RBC) [Mass/Vol] 32.9 % 30.5 - 36.0 % [facility] MCV (RBC) [Entitic vol] 92.3 fL 77.0 - 99.0 fL [facility] Platelet mean volume (Bld) [Entitic vol] 10.0 fL 9.0 - 12.7 fL [facility] Platelets (Bld) [#/Vol] 283 10*3/uL 140 - 440 10*3/uL [facility] RBC (Bld) [#/Vol] 4.18 10*6/uL 3.80 - 5.2 0 10*6/uL [facility] WBC (Bld) [#/Vol] 9.3 10*3/uL 3.6 - 10.7 10*3/uL [facility] COMPREHENSIVE METABOLIC PANE Gilberto 04-03-2024 Albumin [Mass/Vol] 4.3 g/dL Normal 3.5-5.0 [facility] Comment on above: Performed By: #### L [id number], [id number], [id number] ####Improvement Auditor: MARYLOU MAY ([id number])[facility] [place] ([facility])[address] ALP [Catalytic activity/Vol] 91 U/L Normal 38-126 [facility] Comment on above: Performed By: #### L AB103, [id number], LAB17 ####Improvement Auditor: MARYLOU MAY ([id number])[facility] [place] ([facility] ALT [Catalytic activity/Vol] 10 U/L Normal 0-34 [facility] Comment on above: Performed By: #### L AB103, [id number], LAB17 ####Improvement Auditor: MARYLOU MAY ([phone])[facility] [place] ([facility])[address] Anion gap [Moles/Vol] 9 mmol/L Normal 3-13 [facility] Comment on above: Performed By: #### L AB103, [id number], LAB17 ####Improvement Auditor: MARYLOU MAY ([id number])[facility] (SB[facility])[address] AST [Catalytic activity/Vol] 19 U/L Normal 15-46 [facility] Comment on above: Performed By: #### L AB103, [id number], LAB17 ####Improvement Auditor: MARYLOU MAY ([id number])[facility] [place] ([facility])[address] Bilirubin [Mass/Vol] 1.1 mg/dL Normal 0.2-1.3 [facility] Comment on above: Performed By: #### L AB103, [id number], LAB17 ####Improvement Auditor: MARYLOU MAY ([id number])[facility] [place] ([facility])[address] Calcium [Mass/Vol] 9.3 mg/dL Normal 8.4-10.4 [facility] Comment on above: Performed By: #### L AB103, [id number], LAB17 ####Improvement Auditor: MARYLOU MAY ([id number])[facility] SYSTEM[facility] [place]EL[place]QUEZCORALN (SBHLAB)[address] Chloride [Moles/Vol] 107 mmol/L Normal 98-107 [facility] Comment on above: Performed By: #### L AB103, [id number], LAB17 ####Improvement Auditor: MARYLOU MAY ([id number])[facility] SYSTEMSimran [facility]ELASQUEZREHABIL[facility] (SBHLAB)[address] CO2 [Moles/Vol] 20 mmol/L Low 22-30 [facility] Comment on above: Performed By: #### Weston DAWSON, [id number], LAB17 ####Improvement Auditor: MARYLOU MAY ([phone])[facility] Creatinine [Mass/Vol] 1.54 mg/dL High 0.52-1.04 [facility] Comment on above: Performed By: #### Weston DAWSON, [id number], LAB17 ####Improvement Auditor: MARYLOU MAY ([id number])[facility] SYSTEM[facility] GLOMERULAR FILTRATION RATE ML/MIN/1.73 SQ M.PREDICTED 33.2 mL/min/1.73m*2 Low >60.0 [facility] Comment on above: Result Comment: Calc ulation based on the Chronic Kidney Disease Epidemiology Collaboration (CKD-EPI) equation refit without adjustment for race Performed By: #### L AB103, [id number], LAB17 ####Improvement Auditor: MARYLOU MAY ([id number])[facility] SYSTEMSmiran VELASQUEZREHABILITATION HOSP[facility] ([facility])[address] [place] [address] [place] Glucose [Mass/Vol] 115 mg/dL High 70-100 [facility] Comment on above: Performed By: #### L AB103, [id number], LAB17 ####Improvement Auditor: MARYLOU MAY ([id number])[facility] SYSTEM[facility] [place] (SB[facility])[address] Potassium [Moles/Vol] 5.7 mmol/L High 3.5-5.1 [facility] Comment on above: Performed By: #### L AB103, [id number], LAB17 ####Improvement Auditor: MARYLOU MAY ([id number])[facility] [place] ([facility])[address] Protein [Mass/Vol] 7.7 g/dL Normal 6.3-8.2 [facility] Comment on above: Performed By: #### L AB103, [id number], LAB17 ####Improvement Auditor: MARYLOU MAY ([id number])[facility] SYSTEM[facility] [place] ([facility])[address] Sodium [Moles/Vol] 135 mmol/L Normal 135-145 [facility] Comment on above: Performed By: #### L AB103, [id number], LAB17 ####Improvement Auditor: MARYLOU MAY ([id number])[facility] (SBHLAB)[address] Urea nitrogen [Mass/Vol] 29 mg/dL High 7-17 [facility] Comment on above: Performed By: #### L AB103, [id number], LAB17 ####Improvement Auditor: MARYLOU MAY ([id number])[facility] (SBHLAB)[address] HEAD WO IV CONTRASTon CT HEAD WO IV CONTRAST Normal [facility] CT Head WO contraston 2023 1. No acute finding. Chronic left cerebellar infarct.. Report Dictated on Electronically Signed By: Toño Tang MD Electronically Signed Date/Time: 04/03/2024 9:21 PM T [facility] Patient Name: MEL CARVER RD [facility] 1940 [id number] Exam Date/Time: 04/03/2024 21:06 Procedure: CT HEAD WO IV CONTRAST Ordering Provider: CUTLER DANIEL Reason For Exam: right leg numbness CT BRAIN WITHOUT CONTRAST CLINICAL INDICATION: right leg numbness TECHNIQUE: Noncontrast CT scan of the brain. Multiplanar reformations. Dose reduction was employed with automated exposure control. COMPARISON: None FINDINGS: Small chronic infarct in the caudal aspect of the left cerebellar hemisphere. No acute infarct or acute hemorrhage. No mass effect or midline shift. No hydrocephalus. Left globe prosthesis. [facility] Toño Tang MD - 04/03/2024 Patient Name: MEL POP : 1940 [id number] Exam Date/Time: 04/03/2024 21:06 Procedure: CT HEAD WO IV CONTRAST Ordering Provider: CUTLER DANIEL Reason For Exam: right leg numbness CT BRAIN WITHOUT CONTRAST CLINICAL INDICATION: right leg numbness TECHNIQUE: Noncontrast CT scan of the brain. Multiplanar reformations. Dose reduction was employed with automated exposure control. COMPARISON: None FINDINGS: Small chronic infarct in the caudal aspect of the left cerebellar hemisphere. No acute infarct or acute hemorrhage. No mass effect or midline shift. No hydrocephalus. Left globe prosthesis. IMPRESSION: 1. No acute finding. Chronic left cerebellar infarct.. Report Dictated on Electronically Signed By: Toño Tang MD Electronically Signed Date/Time: 04/03/2024 9:21 PM EDT [facility] Radiology Study observation (narrative) [facility] CT Head WO contrastOrdered B y: Toño Tang on 04-03-2024 [facility] [employer] Work Phone: CTA AORTA BL ILIOFEMORAL W W Oon 04-03-2024 CTA AORTA BL ILIOFEMORAL W WO Normal [facility] CTA Thoracic and Abdominal A zachary and Bilateral Runoff Vessels WO and W contrast Cheryl 04-03-2024 1. Severe lower extremity atherosclerotic disease. 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 2. 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 3. Severe diverticulosis. Report Dictated on Electronically Signed By: Toño Tang MD Electronically Signed Date/Time: 04/03/2024 9:36 PM EDT [facility] Patient Name: MEL CARVER RD : 1940 [facility]#: [id number] Exam Date/Time: 04/03/2024 21:14 Procedure: CTA AORTA BL ILIOFEMORAL W WO Ordering Provider: CUTLER DANIEL Reason For Exam: Claudication or leg ischemia CTA AORTA BL ILIOFEMORAL W WO CLINICAL INDICATION: Claudication or leg ischemia TECHNIQUE: CTA abdominal aorta with bilateral lower extremity runoff. IV contrast utilized. Multiplanar reformations. 3-D reconstructions provided to better evaluate the vascular and/or osseous structures. Dose reduction was employed with automated exposure control. COMPARISON: None FINDINGS: Lung bases are clear. Mild cardiac enlargement. Solid organ evaluation limited from arterial phase bolus. Liver shows no significant abnormality. Gallbladder and biliary tree appear normal. Spleen shows no significant abnormality. Adrenal glands show no significant abnormality. Kidneys show no significant abnormality. Pancreas shows no significant abnormality. IVC filter noted. Severe diverticulosis involving the sigmoid colon. No diverticulitis seen. No bowel obstruction. Abdominal aorta shows atherosclerotic changes but no aneurysm or dissection. No significant narrowing of celiac artery origin. No significant narrowing of the SMA origin. Moderate to severe stenosis involving the right renal artery origin. Less than 50 percent stenosis left renal artery origin. YOVANI is patent. Right side: Common iliac artery shows moderate atherosclerotic changes but no high-grade stenosis. 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 Moderate stenosis of right internal iliac artery origin. External iliac artery on the right appears widely patent. Common femoral and deep femoral arteries are patent. Proximal superficial femoral artery is patent. In the mid superficial femoral artery there is multifocal stenosis, and subsequent occlusion at the level of the mid femur. Reconstitution of the proximal popliteal artery which shows multifocal stenosis. Anterior tibial artery is patent proximally, but shows no contrast enhancement past the upper to mid lower leg. Tibioperoneal trunk is patent proximally. Peroneal and posterior tibial arteries are patent proximally but show severe atherosclerotic changes and multifocal stenoses. Multi focal occlusion of posterior tibial artery which does not appear to cross the ankle. Peroneal artery also shows severe atherosclerotic disease, and is not seen past just above the ankle. Left side: Common iliac external, and internal iliac arteries appear patent. Common femoral artery is patent. Deep femoral artery is patent. Superficial femoral artery is very small proximally and is occluded just distal to its origin. There is reconstitution of the popliteal artery. Anterior tibial artery is seen proximally, no contrast opacification passed the upper to mid lower leg. Tibial peroneal trunk is patent. Posterior tibial and peritoneal arteries are patent proximally, but appear badly diseased. Peroneal artery crosses through the interosseous membrane and appears to anastomose to the distal anterior tibial artery. Posterior tibial artery does not cross the ankle, but is seen into the mid to distal lower leg. [facility] Toño Tang MD - 04/03/2024 Patient Name: MEL POP : 1940 Exam Date/Time: 04/03/2024 21:14 Procedure: CTA AORTA BL ILIOFEMORAL W WO Ordering Provider: CUTLER DANIEL Reason For Exam: Claudication or leg ischemia CTA AORTA BL ILIOFEMORAL W WO CLINICAL INDICATION: Claudication or leg ischemia TECHNIQUE: CTA abdominal aorta with bilateral lower extremity runoff. IV contrast utilized. Multiplanar reformations. 3-D reconstructions provided to better evaluate the vascular and/or osseous structures. Dose reduction was employed with automated exposure control. COMPARISON: None FINDINGS: Lung bases are clear. Mild cardiac enlargement. Solid organ evaluation limited from arterial phase bolus. Liver shows no significant abnormality. Gallbladder and biliary tree appear normal. Spleen shows no significant abnormality. Adrenal glands show no significant abnormality. Kidneys show no significant abnormality. Pancreas shows no significant abnormality. IVC filter noted. Severe diverticulosis involving the sigmoid colon. No diverticulitis seen. No bowel obstruction. Abdominal aorta shows atherosclerotic changes but no aneurysm or dissection. No significant narrowing of celiac artery origin. No significant narrowing of the SMA origin. Moderate to severe stenosis involving the right renal artery origin. Less than 50 percent stenosis left renal artery origin. YOVANI is patent. Right side: Common iliac artery shows moderate atherosclerotic changes but no high-grade stenosis. 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 Moderate stenosis of right internal iliac artery origin. External iliac artery on the right appears widely patent. Common femoral and deep femoral arteries are patent. Proximal superficial femoral artery is patent. In the mid superficial femoral artery there is multifocal stenosis, and subsequent occlusion at the level of the mid femur. Reconstitution of the proximal popliteal artery which shows multifocal stenosis. Anterior tibial artery is patent proximally, but shows no contrast enhancement past the upper to mid lower leg. Tibioperoneal trunk is patent proximally. Peroneal and posterior tibial arteries are patent proximally but show severe atherosclerotic changes and multifocal stenoses. Multi focal occlusion of posterior tibial artery which does not appear to cross the ankle. Peroneal artery also shows severe atherosclerotic disease, and is not seen past just above the ankle. Left side: Common iliac external, and internal iliac arteries appear patent. Common femoral artery is patent. Deep femoral artery is patent. Superficial femoral artery is very small proximally and is occluded just distal to its origin. There is reconstitution of the popliteal artery. Anterior tibial artery is seen proximally, no contrast opacification passed the upper to mid lower leg. Tibial peroneal trunk is patent. Posterior tibial and peritoneal arteries are patent proximally, but appear badly diseased. Peroneal artery crosses through the interosseous membrane and appears to anastomose to the distal anterior tibial artery. Posterior tibial artery does not cross the ankle, but is seen into the mid to distal lower leg. IMPRESSION: 1. Severe lower extremity atherosclerotic disease. 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 2. 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 3. Severe diverticulosis. Report Dictated on Electronically Signed By: Toño Tang MD Electronically Signed Date/Time: 04/03/2024 9:36 PM EDT [facility] Radiology Study observation (narrative) [facility] Comprehensive metabolic 1998 panelon 04-03-2024 Albumin [Mass/Vol] 4.3 g/dL 3.5 - 5.0 g/dL [facility] ALP [Catalytic activity/Vol] 91 U/L 38 - 126 U/L [facility] ALT [Catalytic activity/Vol] 10 U/L 0 - 34 U/L [facility] Anion gap [Moles/Vol] 9 mmol/L 3 - 13 mmol/L [facility] AST [Catalytic activity/Vol] 19 U/L 15 - 46 U/L [facility] Bilirubin [Mass/Vol] 1.1 mg/dL 0.2 - 1 .3 mg/dL [facility] Calcium [Mass/Vol] 9.3 mg/dL 8.4 - 10. 4 mg/dL [facility] Chloride [Moles/Vol] 107 mmol/L 98 - 10 7 mmol/L [facility] CO2 [Moles/Vol] 20 mmol/L Low 22 - 30 mmol/L [facility] Creatinine [Mass/Vol] 1.54 mg/dL High 0.52 - 1.04 mg/dL [facility] GFR/1.73 sq M.predicted (S/P/Bld) [Vol rate/Area] 33.2 mL/min Low - PINF [facility] Comment on above: Calculation based on the Chronic Kidney Disease Epidemiology Collaboration (CKD-EPI) equation refit without adjustment for race Glucose [Mass/Vol] 115 mg/dL High 70 - 100 mg/dL [facility] Interpretation and review of laboratory results Abnormal [facility] Potassium [Moles/Vol] 5.7 mmol/L High 3.5 - 5.1 mmol/L [facility] Protein [Mass/Vol] 7.7 g/dL 6.3 - 8.2 g/dL [facility] Sodium [Moles/Vol] 135 mmol/L 135 - 145 mmol/L [facility] Urea nitrogen [Mass/Vol] 29 mg/dL High 7 - 17 mg/dL [facility] ED Nursing Noteon 04-03-2024 ED Nursing Note Normal [facility] ED Provider Noteon ED Provider Note Normal [facility] Laboratory - Chemistry and C hemistry - challengeon 04-03-2024 Troponin I.cardiac [Mass/Vol] 0.014 ng/mL NINF - 0.034 ng/mL [facility] Magnesium [Mass/Vol] 2.3 mg/dL 1.6 - 2 .3 mg/dL [facility] Laboratory - Coagulationon 0 04-03-2024 aPTT Coag (PPP) [Time] 26.7 s 20.0 - 30.5 s [facility] INR Coag (PPP) [Relative time] 1.0 {INR} 0.9 - 1.1 [facility] Comment on above: Recommended Anticoag ulant Therapy: SEE BELOW ----- INR of 2.0 - 3.0 : - Prophylaxis of Venous Thrombosis (high-risk surgery) - Treatment of Venous Thrombosis - Treatment of Pulmonary Embolism (Includes tissue heart valves, Acute Myocardial Infarction to prevent systemic embolism, Valvular Heart Disease, and Atrial Fibrillation) ----- INR of 2.5 - 3.5 : - Mechanical Prosthetic Valves (high risk) - If oral anticoagulant therapy is used to prevent Myocardial Infarction PT Coag (Bld) [Time] 11.7 s 9.0 - 1 2.0 s [facility] MAGNESIUMon 04-03-2024 Magnesium [Mass/Vol] 2.3 mg/dL Normal 1.6-2.3 [facility] Comment on above: Performed By: #### L [id number], [id number], LAB17 ####Improvement Auditor: MARYLOU MAY ([id number])[facility] ([facility])[address] [place] [address] Magnesium [Mass/Vol]on 04-03 Interpretation and review of laboratory results Normal [facility] No Panel Informationon 04-03 [facility] Interpretation and review of laboratory results Normal [facility] PROTIME AND APTTon aPTT Coag (Bld) [Time] 26.7 s Normal 20.0-30.5 [facility] Comment on above: Performed By: #### L [id number] ####Improvement Auditor: MARYLOU MAY ([id number])[facility] ([facility])[address] [place] [address] INR Coag (PPP) [Relative time] 1.0 {INR} Normal 0.9-1.1 [facility] Comment on above: Result Comment: Timothy mmended Anticoagulant Therapy: SEE BELOW----- INR of 2.0 - 3.0 : - Prophylaxis of Venous Thrombosis (high-risk surgery) - Treatment of Venous Thrombosis - Treatment of Pulmonary Embolism (Includes tissue heart valves, Acute Myocardial Infarction to prevent systemic embolism, Valvular Heart Disease, and Atrial Fibrillation)----- INR of 2.5 - 3.5 : - Mechanical Prosthetic Valves (high risk) - If oral anticoagulant therapy is used to prevent Myocardial Infarction Performed By: #### L [id number] ####Improvement Auditor: MARYLOU MAY ([id number])[facility] (HLAB)[address] PT Coag (PPP) [Time] 11.7 s Normal 9.0-12.0 [facility] Comment on above: Performed By: #### L [id number] ####Improvement Auditor: MARYLOU MAY ([phone])[facility] TROPONIN Ion 04-03-2024 Troponin I.cardiac [Mass/Vol] 0.014 ng/mL Normal <0.034 [facility] Comment on above: Result Comment: BUBBA Garcia COMMENTS:Patients with high levels of Biotin oral intake (ie >5 mg/day) may have falsely decreased Troponin levels. Performed By: #### L AB103, [id number], LAB17 ####Improvement Auditor: MARYLOU MAY ([id number])[facility] [place] [address] Troponin I.cardiac [Mass/Vol ]on 04-03-2024 Interpretation and review of laboratory results Normal [facility] Patients with high levels of Biotin oral intake (ie >5 mg/day) may have falsely decreased Troponin levels. [facility] aPTT Coag (Bld) [Time]on aPTT Coag (PPP) [Time] 25.6 s 20.0 - 30.5 s [facility] Interpretation and review of laboratory results Normal [facility] NOTE: The therapeuti c time for Heparin anticoagulation, based on Xa activity inhibition, is an APTT of 46-80 seconds. [facility] MR Lower leg - left WO and W contrast Cheryl 06-16-2023 Impression: 1. Mild, nonspecific muscle edema involving all compartments of the left leg, appearing similar to the right leg. 2. Within the mid to lower medial head of the gastrocnemius muscle, there is a circumscribed 1.3 x 2.9 x 6.0 cm lipomatous lesion without internal nodularity or septation. Report Dictated on Electronically Signed By: Dimas Woodward MD Electronically Signed Date/Time: 06/16/2023 8:10 AM EST [facility] Patient Name: MEL CARVER RD : 1940 Exam Date/Time: 06/15/2023 16:21 Procedure: MR TIBIA FIBULA LEFT W AND WO IV CONTRAST Ordering Provider: EVANS RACHEL Reason For Exam: Examination: MRI left tibia-fibula with and without contrast contrast Technique: Multiplanar multisequence MRI images were obtained through the left without intravenous gadolinium contrast. No contrast was provided to lack of venous access. Clinical Indication: Pain Comparison: None Findings: No abnormal bone marrow signal intensity. No fracture or periostitis. Mild, nonspecific muscle edema involving all compartments of the leg. No muscle tear or atrophy. Within the mid to lower medial head of the gastrocnemius muscle, there is a circumscribed 1.3 x 2.9 x 6.0 cm lipomatous lesion without internal nodularity or septation. No additional solid or cystic lesions within the subcutaneous soft tissues or intramuscular compartments. Although suboptimally evaluated on this exam, the knee and ankle joints are intact without evidence of fracture, subluxation, or effusion. The visualized portions of the right leg are unremarkable aside from susceptibility artifact at the medial and lateral ankle resulting from ORIF hardware. [facility] Dimas Woodward MD - 06/16/2023 Patient Name: MEL POP : 1940 Exam Date/Time: 06/15/2023 16:21 Procedure: MR TIBIA FIBULA LEFT W AND WO IV CONTRAST Ordering Provider: EVANS RACHEL Reason For Exam: Examination: MRI left tibia-fibula with and without contrast contrast Technique: Multiplanar multisequence MRI images were obtained through the left without intravenous gadolinium contrast. No contrast was provided to lack of venous access. Clinical Indication: Pain Comparison: None Findings: No abnormal bone marrow signal intensity. No fracture or periostitis. Mild, nonspecific muscle edema involving all compartments of the leg. No muscle tear or atrophy. Within the mid to lower medial head of the gastrocnemius muscle, there is a circumscribed 1.3 x 2.9 x 6.0 cm lipomatous lesion without internal nodularity or septation. No additional solid or cystic lesions within the subcutaneous soft tissues or intramuscular compartments. Although suboptimally evaluated on this exam, the knee and ankle joints are intact without evidence of fracture, subluxation, or effusion. The visualized portions of the right leg are unremarkable aside from susceptibility artifact at the medial and lateral ankle resulting from ORIF hardware. IMPRESSION: Impression: 1. Mild, nonspecific muscle edema involving all compartments of the left leg, appearing similar to the right leg. 2. Within the mid to lower medial head of the gastrocnemius muscle, there is a circumscribed 1.3 x 2.9 x 6.0 cm lipomatous lesion without internal nodularity or septation. Report Dictated on Electronically Signed By: Dimas Woodward MD Electronically Signed Date/Time: 06/16/2023 8:10 AM Plated MR Lower leg - left WO and W contrast IVOrdered By: Dimas Woodward on 06-16-2023 [employer] Work Phone: MR Lower leg - left WO and W contrast Cheryl 06-15-2023 Radiology Study observation (narrative) [facility] Panel Informationon 05-24 No evidence of venous thrombus in the left lower extremity. Report Dictated on Electronically Signed By: Yasmany Whyte MD Electronically Signed Date/Time: 05/24/2023 11:42 AM [employer] SYSTEM Patient Name: MEL CARVER RD : 1940 Exam Date/Time: 05/24/2023 12:35 Procedure: VASC US LOWER EXTREMITY VENOUS DUPLEX LEFT Ordering Provider: EVANS RACHEL Reason For Exam: m79.89 ULTRASOUND LEFT LOWER EXTREMITY VEINS History: Swelling Protocol: Ultrasound evaluation, including color flow and Doppler sonography, of the veins of the left lower extremity was performed. Color flow imaging demonstrates normal flow. Two-dimensional imaging demonstrates no evidence of a filling defect or reduced compressibility. Pulse Doppler demonstrates normal phasic flow with adequate augmentation and normal response to Valsalva maneuver. [facility] Yasmany Whyte MD - 05/24/2023 Patient Name: MEL POP : 1940 Exam Date/Time: 05/24/2023 12:35 Procedure: VASC US LOWER EXTREMITY VENOUS DUPLEX LEFT Ordering Provider: EVANS RACHEL Reason For Exam: m79.89 ULTRASOUND LEFT LOWER EXTREMITY VEINS History: Swelling Protocol: Ultrasound evaluation, including color flow and Doppler sonography, of the veins of the left lower extremity was performed. Color flow imaging demonstrates normal flow. Two-dimensional imaging demonstrates no evidence of a filling defect or reduced compressibility. Pulse Doppler demonstrates normal phasic flow with adequate augmentation and normal response to Valsalva maneuver. IMPRESSION: No evidence of venous thrombus in the left lower extremity. Report Dictated on Electronically Signed By: Yasmany Whyte MD Electronically Signed Date/Time: 05/24/2023 11:42 AM EST [employer] CT Neck W contrast Cheryl 02-16 Patient Name: MEL CARVER RD : 1940 Exam Date/Time: 03/08/2023 11:33 Procedure: CT SOFT TISSUE NECK W IV CONTRAST Ordering Provider: EVANS RACHEL Reason For Exam: R22.1 HISTORY: Neck mass After intravenous contrast sections performed through the neck (highest sections of both lateral ventricles, lowest sections aortic arch). Dose reduction was closed with automatic exposure control. FINDINGS: 1. Abnormal appearance of the left submandibular gland with generalized enhancement with enlargement (probably due to sialadenitis). A small calcification is present in the gland itself inferiorly with a large submandibular duct stone. These findings were reported on outside CT from 05/17/2022. 2. Mild thyromegaly with innumerable subcentimeter cysts or nodules. 3. Scattered calcific atherosclerosis with calcified plaquing about the bifurcations with mild ICA narrowing bilaterally. Changes of centrilobular emphysema lung apices. Multilevel degenerative disc disease cervical spine in this edentulous patient. Nasal septal deviation to right with spur with right nasal antral window. Report Dictated on Electronically Signed By: Efrain Yi MD Electronically Signed Date/Time: 03/11/2023 10:28 AM [facility] Efrain Yi MD - 03/11/2023 Patient Name: MEL POP : 1940 [facility]ly [facility]#: [id number] Exam Date/Time: 03/08/2023 11:33 Procedure: CT SOFT TISSUE NECK W IV CONTRAST Ordering Provider: EVANS RACHEL Reason For Exam: R22.1 HISTORY: Neck mass After intravenous contrast sections performed through the neck (highest sections of both lateral ventricles, lowest sections aortic arch). Dose reduction was closed with automatic exposure control. FINDINGS: 1. Abnormal appearance of the left submandibular gland with generalized enhancement with enlargement (probably due to sialadenitis). A small calcification is present in the gland itself inferiorly with a large submandibular duct stone. These findings were reported on outside CT from 05/17/2022. 2. Mild thyromegaly with innumerable subcentimeter cysts or nodules. 3. Scattered calcific atherosclerosis with calcified plaquing about the bifurcations with mild ICA narrowing bilaterally. Changes of centrilobular emphysema lung apices. Multilevel degenerative disc disease cervical spine in this edentulous patient. Nasal septal deviation to right with spur with right nasal antral window. Report Dictated on Electronically Signed By: Efrain Yi MD Electronically Signed Date/Time: 03/11/2023 10:28 AM [facility] [employer] CT Neck W contrast IVOrdered By: Efrain Yi on 03-11-2023 [employer] Work Phone: CT Neck W contrast Cheryl 02-16 Radiology Study observation (narrative) [facility] alth US Head and neck soft tissue on 02-24-2023 Indeterminate soft tissue nodules in the patients area of palpable concern in the left neck, which may represent enlarged left submandibular gland with obstructing sialolith and adjacent enlarged lymph node. Recommend further evaluation with contrast-enhanced neck CT. Report Dictated on Electronically Signed By: Ryan Mccollum MD Electronically Signed Date/Time: 02/24/2023 8:23 AM EDT [facility] Patient Name: MEL CARVER RD : 1940 Exam Date/Time: 02/22/2023 13:44 Procedure: US HEAD NECK SOFT TISSUE Ordering Provider: EVANS RACHEL Reason For Exam: R22.1 ULTRASOUND NECK LIMITED-NONVASCULAR CLINICAL INDICATION: Neck mass TECHNIQUE: Targeted sonographic imaging of the patient's area of palpable concern in the left submandibular region was performed. COMPARISON: None FINDINGS: Targeted sonographic imaging of the patient. During the left neck shows a hypoechoic soft tissue nodule with fluid-filled channels measuring 3.4 x 2.4 x 2.1 cm with associated 0.3 x 1.0 x 0.6 cm calculus noted. There is an adjacent lobular hypoechoic lesion measuring 1.8 x 1.6 x 1.4 cm. [facility] Ryan Mccollum MD - 02/24/2023 Patient Name: MEL POP : 1940 Exam Date/Time: 02/22/2023 13:44 Procedure: US HEAD NECK SOFT TISSUE Ordering Provider: EVANS RACHEL Reason For Exam: R22.1 ULTRASOUND NECK LIMITED-NONVASCULAR CLINICAL INDICATION: Neck mass TECHNIQUE: Targeted sonographic imaging of the patient's area of palpable concern in the left submandibular region was performed. COMPARISON: None FINDINGS: Targeted sonographic imaging of the patient. During the left neck shows a hypoechoic soft tissue nodule with fluid-filled channels measuring 3.4 x 2.4 x 2.1 cm with associated 0.3 x 1.0 x 0.6 cm calculus noted. There is an adjacent lobular hypoechoic lesion measuring 1.8 x 1.6 x 1.4 cm. IMPRESSION: Indeterminate soft tissue nodules in the patients area of palpable concern in the left neck, which may represent enlarged left submandibular gland with obstructing sialolith and adjacent enlarged lymph node. Recommend further evaluation with contrast-enhanced neck CT. Report Dictated on Electronically Signed By: Ryan Mccollum MD Electronically Signed Date/Time: 02/24/2023 8:23 AM EDT [employer] Head and neck soft tissue Ordered By: Ryan Mccollum on 02-24-2023 [employer] Work Phone: [phone] [facility] Head and neck soft tissue on 02-22-2023 Radiology Study observation (narrative) [facility] CONSULT PROGon 06-29-2022 CONSULT PROG HNO ID: [id number] Author: Nemo Petty APRN.APPLICATIONS PROJECT MANAGER Service: Wound/Ostomy Author Type: Nurse Practitioner Type: Consult Progress Note Filed: 06/29/2022 12:51 PM Note Text: WOUND CARE SERVICE PROGRESS FOOD SERVICES DIRECTOR NOTE SERVICE DATE: 06/29/2022 SERVICE TIME: 10:20 TIME SPENT (minutes): 30 REASON FOR CONSULT: follow up wound care visit to reassess skin/wounds CHIEF COMPLAINT: right finger wound Subjective HISTORY OF PRESENT ILLNESS: Ms. Jose Alberto Castillo is a 81 year old female who is seen today with Delia Bruno, Wound/wind science and planning, as a follow up wound care visit to reassess skin/wounds. Patient presented to hospital on 06/16/22 with complaints of left leg pain and discoloration. Patient has past medical history Tobacco abuse, COPD, paroxysmal atrial fibrillation, hypothyroidism, GERD remote DVT s/p IVC filter, and recent bacterial sialadenitis who called EMS after she awoke from a nap with left leg pain, discoloration and inability to ambulate. Patient had an attempted thrombectomy however it could not be completed. PERTINENT REVIEW OF SYSTEMS: GENERAL: denies fever or chills PAIN ASSESSMENT: denies pain to finger and left hip wounds SKIN: admits to wound on right 3rd finger RESPIRATORY: denies SOB GI/: denies nausea or vomiting PAST MEDICAL HISTORY Diagnosis Date Acute bacterial sialadenitis Chronic atrial fibrillation (HCC) GERD (gastroesophageal reflux disease) HTN (hypertension) Hypothyroidism PAST SURGICAL HISTORY Procedure Laterality Date DANDC, DIAG AND/OR THERAPEUTIC TOTAL ABDOM HYSTERECTOMY Social History Tobacco Use Smoking status: Every Day Packs/day: 0.50 Years: 50.00 Pack years: 25.00 Types: Cigarettes Smokeless tobacco: Never Substance Use Topics Alcohol use: Not Currently Drug use: Never FAMILY HISTORY Problem Relation Age of Onset Lung Cancer Father Cancer Brother MEDICATIONS: Current Facility-Administered Medications Medication Dose Route Frequency sodium chloride 0.9 % (flush) 3-5 mL (BD POSIFLUSH) 3-5 mL INTRAVENOUS q 12 H HYDROcodone 5 mg - acetaminophen 325 mg tablet (NORCO) 1-2 tablet ORAL q 6 H PRN acetaminophen 650 mg tab(s) (TYLENOL) 650 mg ORAL q 8 H metoprolol tartrate (short acting) 25 mg tab(s) (LOPRESSOR) 25 mg ORAL q 12 H NaCl 0.9% iv flush bag 20 mL INTRAVENOUS PRN HYDROmorphone (PF) 0.5 mg injection (DILAUDID) 0.5 mg INTRAVENOUS q 3 H PRN ascorbic acid (vitamin C) 500 mg tab(s) (VITAMIN C) 500 mg ORAL TID zinc oxide 20 % TOPICAL PRN lactobacillus rhamnosus 10 billion cell (CULTURELLE) capsule 1 capsule ORAL DAILY zinc oxide 20 % TOPICAL BID sucralfate 1 g tab(s) (CARAFATE) 1 g ORAL QID pantoprazole DR 40 mg tab(s) (PROTONIX) 40 mg ORAL BID AC (0600/1600) guaiFENesin 600 mg ER tab(s) (MUCINEX) 600 mg ORAL q 12 H ipratropium-albuterol 3 mL nebulizer solution (DUONEB) 3 mL INHALATION q 4 H PRN ampicillin-sulbactam iv piggyback 1.5 g in NaCl 0.9% 100 mL Vial-Bag (UNASYN) 1.5 g INTRAVENOUS q 6 H apixaban 10 mg tab(s) (ELIQUIS) 10 mg ORAL BID Followed by [START ON 07/02/2022] apixaban 5 mg tab(s) (ELIQUIS) 5 mg ORAL BID bacitracin 500 unit/gram topical ointment TOPICAL DAILY ALLERGIES Allergen Reactions Percocet [Oxycodone* Itching Objective PHYSICAL EXAM: BP 149/68 Pulse 93 Temp 36.4 ?C (97.5 ?F) (Oral) Resp 18 Ht 162.6 cm (5' 4") Wt 71.2 kg (156 lb 15.5 oz) SpO2 98% BMI 26.94 kg/m? General appearance: alert and oriented female lying in hospital bed Respiratory: no SOB or cough noted Extremities: wound to right 3rd finger, petechia rash to left hip Integumentary: moisture associated skin damage to buttocks DATA Labs: WBC 6.37 Presenting wound information: Wound 06/16/22 1630 Moisture Coccyx (Active) Assessments 06/29/2022 10:26 AM Wound Image Site Assessment Red;Intact Allie-Wound Assessment [place] Drainage Amount None Treatments Protective Barrier Ointment Dressing Foam- Adhesive Active Orders Date Order Priority Status Authorizing Provider 06/28/22 1423 zinc oxide 20 % ointment Active Iwona Chu, 06/21/22 1248 DRESSING CARE (SPECIFY) ([place]) Routine Active Fidel Carmen APRN.APPLICATIONS PROJECT MANAGER - Specify:: Apply allevyn foam to coccyx, peel down every shift to assess skin and to apply zinc oxide, change every 3 days or if soiled. 06/21/22 1248 zinc oxide 20 % Active Fidel Carmen APRN.APPLICATIONS PROJECT MANAGER Wound 06/16/22 Incision Knee Left;Posterior (Active) Assessments 06/29/2022 10:27 AM Wound Image Site Assessment Dry;Intact Allie-Wound Assessment Intact Closure Sutures Drainage Amount None Treatments Open to Air No Linked orders to display Wound 06/21/22 0948 Atypical Wound Finger (Comment which one) Right (Active) Assessments 06/29/2022 10:23 AM Wound Image Site Assessment Red;[place] Allie-Wound Assessment Intact Wound Length (cm) 2 cm Wound Width (cm) 2.5 cm Wound Surface Area (cm2) 5 cm2 Wound Depth (cm) 0.1 cm Wound Volume (cm3) 0.5 (more content not included)... Normal [facility] NUTRITIONon 06-29-2022 NUTRITION HNO ID: [id number] Author: Iwona Pelayo RD Service: Nutrition Therapy Author Type: Registered Dietitian Type: Nutrition Filed: 06/29/2022 1:38 PM Note Text: NUTRITION THERAPY PROGRESS NOTE SERVICE DATE: 06/29/2022 SERVICE TIME: 13:30 Nutrition Assessment: Recommended Malnutrition Diagnosis: No Malnutrition Identified (06/23/22 1109 : Parul Mcallister RD) Estimated kilocalorie needs: 3971-9834 Calorie Calculation Method: 25-30 kcals/kg Estimated protein needs (grams): 54-65 Grams protein determined by: 1.0 - 1.2 g/kg Care Plan: Continue current diet (Regular) Supplements: Ensure Max (continue 1x per day) Please continue to record meal and supplement intakes for nutrition assessment Monitor and Evaluation: Meet greater than 75% of estimated needs;Monitor fluid/electrolyte balance;Monitor labs, I/Os, vital signs, weight;Monitor bowel function Discharge Recommendations: Diet;Oral Supplements Diet: Regular Oral Supplements: protein supplement as needed Interval History: 81 year old female LOS day 13 on anticoagulant for LLE DVT. Chart reviewed. skin status noted. Labs and medications reviewed. Plan for return home at discharge. Patient reports possible d/c today Anthropometrics: Height: 162.6 cm (5' 4") Weight: 71.2 kg (156 lb 15.5 oz) Dosing Weight: 54.4 kg (120 lb) Usual Weight: 72.6 kg (160 lb) Usual Weight Obtained From: Patient Body mass index is 26.94 kg/m?. Overweight Weight change percentage over time: UTD. Patient declines noticable losses and limited hx per EMR. Also must take into account LE edema. Intake History: Current Nutrition Intake: Greater than 75% estimated energy needs Current Intake Over time: (x6 day. 100% meals per limited record of meal intakes. pt reports improved appetite and is drinking ensure max as ordered. observed >75% lunch meal eaten. BM 06/26) Diet Orders (From admission, onward) Start Ordered 06/23/22 1430 DIET SUPPLEMENTS START NOW Question Answer Comment Supplement 1 ENSURE MAX CHOCOLATE Supplement 1 Frequency DINNER 06/23/22 1426 06/22/22 1130 DIET REGULAR START NOW 06/22/22 1125 MNT Billing: $ Reassessment: 1-15 minutes SIGNATURE: Iwona Pelayo RD PATIENT NAME: Mel Castillo DATE: June 29, 2022 TIME: 10:17 AM Normal [facility] PT EDon 06-29-2022 PT ED HNO ID: [id number] Author: Joana Tolbert RPh Service: Pharmacy Author Type: Pharmacist Type: Patient Education Filed: 06/29/2022 3:42 PM Note Text: PHARMACY ANTICOAGULATION EDUCATION Patient Name: Mel Castillo Account #: Data Unavailable Admission Date: 06/16/2022 2:06 AM Date of Contact: June 29, 2022 Time of Contact: 3:39 PM Patient new to Apixaban? Yes Indication for anticoagulation: DVT LLE Thrombi and attempted thrombolysis on 06/16 but was unsucessful Pt with GIB, and now stable. Pt has been tolerating anticoag therapy (thrombi) RN [facility] aware medications are pending to be picked up or delivered to pt room (BSD) once pt's caregiver comes in to pay for the Copay-- RN aware of closing time Pt receiving free 30 days apixaban from us. Completed cost check as well after this- which was $47 per month Pt to follow up with provider (PCP) for refills as well as tx duration Patient received full anticoagulation education. Initial patient education included: * Reason for taking anticoagulation * How anticoagulant works * When to take medication and what to do if a dose is missed * Drug interactions (Rx, OTC, herbal) and importance of notifying the doctor with any changes. * Do not take or discontinue any medication or over the counter medication except on the advice of the physician or pharmacist. * Potential duration of therapy * Signs/symptoms of bleeding and what to do if they occur because anticoagulation increases the risk of bleeding * Precautionary measures to decrease trauma/bleeding * Signs/symptoms of thrombosis and what to do if they occur * Carrying identification * Importance of notifying healthcare provider when hospitalizations occur and when another healthcare provider has asked them to stop/hold anticoagulation medication before any procedure * Importance of notifying all healthcare providers they are taking an anticoagulant * Use of control measures if applicable * The importance of taking anticoagulation medication as instructed and the potential ramifications of non-compliance were explained to the patient. The patient was provided supplemental material which includes the following topics: compliance Issues, follow-up with physician, follow- up monitoring, potential adverse drug reactions and interactions. READINESS TO LEARN COGNITIVE ABILITY: Alert and oriented MOTIVATION TO LEARN: Eager Interested FAMILY SUPPORT: Unable to assess - Family not present INSTRUCTION PROVIDED TO: Patient PATIENT LEARNS BEST BY: Individual Instruction Written Instruction - Hand-outs Verbal Instruction FACTORS AFFECTING LEARNING: None PHYSICAL LIMITATIONS AFFECTING LEARNING: None LEARNING RESPONSE DIAGNOSIS: SEE INDICATION(S) ABOVE PATIENT/FAMILY RESPONSE: Verbalizes understanding of: The signs and symptoms of a worsening condition that warrant a call to the physician. The correct actions to take to manage symptoms associated with his/her disease/illness. The physical restrictions and recommendations after discharge from the hospital. Accurate knowledge of prescribed medication prior to discharge. The correct action to take if medication dose is missed. The side effects associated with the medication that warrant a call to the physician. Post discharge follow up instruction METHOD OF INSTRUCTION: Individual instruction Written instruction - handouts Verbal instruction SUPPLEMENTAL MATERIAL PROVIDED: Apixaban education booklet FURTHER RECOMMENDATIONS (if any) Continued education during health care visits EVIDENCE OF LEARNING Outcomes met: Describes/able to restate information Outcomes not met: N/A Joana Tolbert [facility] Normal [facility] CNDSon 06-28-2022 CNDS HNO ID: [id number] Author: Iwona Chu DO Service: Hospital Medicine Author Type: Physician Type: Discharge Summary Filed: 06/28/2022 2:25 PM Note Text: DISCHARGE SUMMARY PATIENT NAME: Mel Castillo Code Status: Full Code Highest Readmission Risk Score: 30 The 30 day readmissions risk score is derived from an internally validated risk model which evaluates patient level characteristics, utilization history, medication orders and lab results up until the day of discharge. Patients with a score of 40 or above are considered highest risk for readmission. Specific patient level drivers will be listed at the bottom of the summary. Admission Information Admission Information ADMIT DATE: 06/16/2022 DISCHARGE DATE: 06/28/2022 MY DOCTORS AND MEDICAL TEAM: My Main Hospital Doctor: Iwona Chu DO Primary Care Provider: No primary care provider on file. My Medical Team Members: Treatment Team: Attending Provider: Iwona Chu DO Consulting: Rahul German MD Attending: Collette Rahman DO Primary Service: [facility] MY CONDITION AT DISCHARGE: Stable REASON I WAS IN THE HOSPITAL: SUMMARY OF WHAT HAPPENED WHILE I WAS IN THE HOSPITAL: 81 yo F admit 06/16/22 for left leg pain, discoloration and inability to ambulate. Found to have LLE DVT 06/16/22 US Positive study for acute proximal DVT in the left lower extremity involving all veins with essentially occlusive thrombus. Nondiagnostic study for calf DVT in the left lower extremity. Positive study for superficial thrombophlebitis in the imaged segments of the left lower extremity involving the visualized segments of the greater and small saphenous veins. 06/16/22 Venogram with intravascular ultrasound Ultrasound guidance was used to identify the patient's left popliteal vein. This was accessed with a micropuncture needle and serially upsized to a 5-Cameroonian sheath. A venogram was then performed, which showed thrombus within the patient's left femoral vein including the common femoral vein. 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 Some collaterals were noted as well. The patient had a known existing IVC filter. There was flow through the filter noted indicating that the filter itself was not significantly thrombosed. At this time, the sheath was upsized to an 8-Cameroonian sheath. An intravascular ultrasound was performed. This showed again chronic thrombus throughout the iliac system as well as evidence of fresh thrombus in the femoral system. Multiple attempts were made at this point to upsize to a larger sheath, so that thrombectomy could be performed. However, the patient's veins were not of adequate size for this size sheath. Therefore, since the thrombus was thought to be primarily chronic within the iliac vein, the sheath was then pulled On anticoagulant: raghav # PAD CTA abd/pel 06/16/22 Occlusion of the left superficial femoral artery and left proximal and mid popliteal artery, with reconstitution of flow in the distal popliteal artery. Diminished caliber of the left anterior tibial artery with distal occlusion. Additional vascular findings in the body of report # pneumonia On antibiotics: Unasyn Azithromycin Pt has completed treatment with antibiotics. # tobacco Recently quit apr/may Encourage complete cessation # hypoxia on exertion-needs 2 L with exertion Suspect COPD given tobacco use 91% RA rest 83% RA walking in room 91% 2L walking in room # Anemia, melena EGD 06/21/22 LA Grade D esophagitis Large, 1.5cm duodenal bulb ulcer without high risk stigmata Recommendations: - Would continue with IV PPI BID for now - Ok to resume anticoagulation and we can monitor closely for signs of overt GIB - Ok for clear liquid diet and then advance as tolerated - Would recommend transfusing 1U PRBC today given soft BPs during procedure today (pre-procedural Hbg of 6.9) and anticipation of restarting anticoagulation - Please check for Hpylori serology and treat empirically if positive # Acute sigmoid diverticulitis per CT abd/pel w IV con 06/20/22 Pt was treated with zosyn # L hip deep tissue pressure injury See wound care eval and rec 06/21/22 # a fib Discharge planning: PT eval on 06/21/22 rec subacute/SNF OT eval on 06/22/22 rec subacute/SNF Per CM note 06/25/22 Plan for pt to return home with her son and his at d/c. [facility] is able to accept for [facility]hc. Await ambulatory Pulse ox for possible home O2 need. Family to transport. Note chart merge with Discharge Disposition Discharge Disposition: Home With Home Care Activity When You Leave the Hospital Other: As tolerated Diet Instructions Other: I recommend a whole food plant based diet. [email or web address] for educational literat (more content not included)... Normal [facility] NURSING PROGon 06-28-2022 NURSING PROG HNO ID: [id number] Author: John Castro RN Service: Nursing Author Type: Registered Nurse Type: Nursing Progress Note Filed: 06/28/2022 2:28 PM Note Text: Other: Ambulatory pulse ox per Dr. Chu SpO2 on Room air at rest: 91% SpO2 while ambulating on Room air: 83% SpO2 while ambulating on 2 liters of oxygen: 91% Normal [facility] Bacteria Spec Resp Culton Bacteria identified Respiratory culture Nom (Unsp spec) CULTURE, RESPIRATORY: Few Normal respiratory radha present ORGANISM ID: 1 Few Lactose fermenting gram negative rods Insignificant colony count. No further workup. GRAM STAIN: Rare Gram positive cocci Few Polymorphonuclear leukocytes Few Epithelial cells Abnormal [facility] Comment on above: Performed By: #### 3 [id number] #### [facility] CLIA [id number] [address] CONSULT PROGon 06-25-2022 CONSULT PROG HNO ID: [id number] Author: Cirilo Yip RPh Service: Pharmacy Author Type: Pharmacist Type: Consult Progress Note Filed: 06/25/2022 1:49 PM Note Text: PHARMACY ORAL ANTICOAGULATION PATIENT EDUCATION NOTE Oral anticoagulant: apixaban Indication: DVT/PE Patient New to medication: Yes LEARNERS Persons Present: Patient Primary Learner: Patient Operational Risk Consultant Present: No Patient educated on the followin. Counseled patient on purpose of therapy, dose, frequency, and expected duration 2. When to take medications and what to do if a dose is missed 3. Increased risk of bleeding with the use of anticoagulants 4. Signs and symptoms of bleeding or thromboembolism 5. Fall precautions 6. Inform healthcare providers that your are on anticoagulation therapy 7. Notify healthcare provider before starting any new drug, including OTC, herbals, or vitamins 8. Laboratory monitoring (Hgb, renal function, liver function) 9. Potential side effects of medications 10. Importance of regularly filling prescriptions and taking medication Patient was given the opportunity to ask questions and receive answers. Teaching Method: Verbal info provided and Written info provided READINESS TO LEARN Cognitive ability: Alert and oriented Motivation to learn: Interested Family support: Unable to assess - Family not present Instruction provided to: Patient Patient learns best by: Verbal Instruction Factors affecting learning: None Physical limitations affecting learning: Pain EVIDENCE OF LEARNING Outcomes met: Describes/able to restate information and Indicates understanding of topic Outcomes not met: N/A SIGNATURE: Cirilo Yip RPh PATIENT NAME: Mel Castillo DATE: June 25, 2022 TIME: 1:48 PM Normal [facility] Bacteria Spec Resp Culton Bacteria identified Respiratory culture Nom (Unsp spec) CULTURE, RESPIRATORY: Moderate Normal respiratory radha present GRAM STAIN: Moderate Mixed oral radha Few Polymorphonuclear leukocytes Few Epithelial cells Abnormal [facility] Comment on above: Performed By: #### 3 2355-0 ####[facility] LABORATORYCLIA [id number] [place] [address] [place] Basic metabolic 2000 panelon 06-24-2022 Anion gap [Moles/Vol] 10 mmol/L Normal 9-18 [facility] Comment on above: Order Comment: Speci isabella Type: BLOOD SPECIMENOrdering Facility: [facility] Address: [address] [place] [id number] Performed By: #### 2 4321-2, 14201-7 ####[facility] LABORATORYCLIA [id number] [address] [place] Calcium [Mass/Vol] 9.0 mg/dL Normal 8.5-10.2 [facility] Comment on above: Order Comment: Samiri men Type: BLOOD SPECIMENOrdering Facility: [facility] Address: [address] [address] Performed By: #### 2 4321-2, 32970-5 ####[facility] LABORATORYCLIA [id number] [address] STATES OF [facility] Chloride [Moles/Vol] 103 mmol/L Normal 97-105 [facility] Comment on above: Order Comment: Speci men Type: BLOOD SPECIMENOrdering Facility: [facility] Address: [address] [place] [address] Performed By: #### 2 4321-2, 72179-2 ####[facility] LABORATORYCLIA [id number] [address] OF [facility] CO2 [Moles/Vol] 23 mmol/L Normal 22-30 [facility] Comment on above: Order Comment: Speci men Type: BLOOD SPECIMENOrdering Facility: [facility] Address: [address] [place] [address] Performed By: #### 2 4321-2, 08240-6 ####[facility] LABORATORYCLIA [id number] [address] OF [facility] Creatinine [Mass/Vol] 0.73 mg/dL Normal 0.58-0.96 [facility] Comment on above: Order Comment: Speci men Type: BLOOD SPECIMENOrdering Facility: [facility] Address: [address] [place] [address] Performed By: #### 2 4321-2, 63082-3 ####[facility] LABORATORYCLIA [id number] [address] ESTIMATED GLOMERULAR FILTRATION RATE 82 mL/min/1.73m??? Normal >=60 [facility] Comment on above: Order Comment: Speci men Type: BLOOD SPECIMENOrdering Facility: [facility] Address: [address] [place] [address] Result Comment: Isa mated Glomerular Filtration Rate (eGFR) is calculated using the 2020 CKD-EPI creatinine equation. This equation utilizes serum creatinine, sex, and age as parameters. The creatinine assay has traceable calibration to isotope dilution-mass spectrometry. Refer to KDIGO guidelines for clinical interpretation. In patients with unstable renal function, e.g. those with acute kidney injury, the eGFR may not accurately reflect actual GFR. Performed By: #### 2 4321-2, 50913-2 ####[facility] LABORATORYCLIA [id number] [place] [address] [place] Glucose [Mass/Vol] 165 mg/dL High 74-99 [facility] Comment on above: Order Comment: Rhina mason Type: BLOOD SPECIMENOrdering Facility: [facility] Address: [address] [place] [address] Result Comment: The [place] [employer] (ADA) provides guidance for cutoff values for fasting glucose and random glucose. The ADA defines fasting as no caloric intake for at least 8 hours. Fasting plasma glucose results between 100 to 125 mg/dL indicate increased risk for diabetes (prediabetes). Fasting plasma glucose results greater than or equal to 126 mg/dL meet the criteria for diagnosis of diabetes. In the absence of unequivocal hyperglycemia, results should be confirmed by repeat testing. In a patient with classic symptoms of hyperglycemia or hyperglycemic crisis, random plasma glucose results greater than or equal to 200 mg/dL meet the criteria for diagnosis of diabetes. Reference: Standards of Medical Care in Diabetes 2016, [place] [employer]. Diabetes Care. 2016.39(Suppl 1). Performed By: #### 2 4321-2, 74169-0 ####[facility] LABORATORYCLIA [id number] [place] [address] [place] Potassium [Moles/Vol] 5.0 mmol/L Normal 3.7-5.1 [facility] Comment on above: Order Comment: Rhina mason Type: BLOOD SPECIMENOrdering Facility: [facility] Address: [address] [id number] Performed By: #### 2 4321-2, 43925-2 ####[facility] LABORATORYCLIA [id number] [place] [address] [place] Sodium [Moles/Vol] 136 mmol/L Normal 136-144 [facility] Comment on above: Order Comment: Rhina mason Type: BLOOD SPECIMENOrdering Facility: [facility] Address: [address] [address] Performed By: #### 2 4321-2, 36961-5 ####[facility] LABORATORYCLIA [id number] [address] Urea nitrogen [Mass/Vol] 14 mg/dL Normal 7-21 [facility] Comment on above: Order Comment: Speci men Type: BLOOD SPECIMENOrdering Facility: [facility] Address: [address] [address] Performed By: #### 2 4321-2, 45305-0 ####[facility] LABORATORYCLIA [id number] [address] CBC panel Auto (Bld)on 06-24 Erythrocyte distribution width (RBC) [Ratio] 17.0 % High 11.5-15.0 [facility] Comment on above: Order Comment: Speci men Type: BLOOD SPECIMENOrdering Facility: [facility] Address: [address] [place] [address] Performed By: #### 5 8410-2 ####[facility] LABORATORYCLIA [id number] [address] Hematocrit (Bld) [Volume fraction] 27.2 % Low 36.0-46.0 [facility] Comment on above: Order Comment: Speci men Type: BLOOD SPECIMENOrdering Facility: [facility] Address: [address] [place] [address] Performed By: #### 5 8410-2 ####[facility] LABORATORYCLIA [id number] [address] STATES OF [facility] Hemoglobin (Bld) [Mass/Vol] 8.9 g/dL Low 11.5-15.5 [facility] Comment on above: Order Comment: Speci men Type: BLOOD SPECIMENOrdering Facility: [facility] Address: [address] [place] [address] Performed By: #### 5 8410-2 ####[facility] LABORATORYCLIA [id number] [address] MCH (RBC) [Entitic mass] 30.9 pg Normal 26.0-34.0 [facility] Comment on above: Order Comment: Speci men Type: BLOOD SPECIMENOrdering Facility: [facility] Address: [address] [place] [address] Performed By: #### 5 8410-2 ####[facility] LABORATORYCLIA [id number] [address] MCHC (RBC) [Mass/Vol] 32.7 g/dL Normal 30.5-36.0 [facility] Comment on above: Order Comment: Speci men Type: BLOOD SPECIMENOrdering Facility: [facility] Address: [address] [place] [address] Performed By: #### 5 8410-2 ####[facility] LABORATORYCLIA [id number] [address] MCV (RBC) [Entitic vol] 94.4 fL Normal 80.0-100.0 [facility] Comment on above: Order Comment: Speci men Type: BLOOD SPECIMENOrdering Facility: [facility] Address: [address] [place] [address] Performed By: #### 5 8410-2 ####[facility] LABORATORYCLIA [id number] [address] Nucleated RBC (Bld) [#/Vol] 0.03 10*3/uL High <0.01 [facility] Comment on above: Order Comment: Speci men Type: BLOOD SPECIMENOrdering Facility: [facility] Address: [address] [place] [address] Performed By: #### 5 8410-2 ####[facility] LABORATORYCLIA [id number] [address] Platelet mean volume (Bld) [Entitic vol] 9.8 fL Normal 9.0-12.7 [facility] Comment on above: Order Comment: Speci men Type: BLOOD SPECIMENOrdering Facility: [facility] Address: [address] [address] Performed By: #### 5 8410-2 ####[facility] LABORATORYCLIA [id number] [address] Platelets (Bld) [#/Vol] 241 10*3/uL Normal 150-400 [facility] Comment on above: Order Comment: Speci men Type: BLOOD SPECIMENOrdering Facility: [facility] Address: [address] [address] Performed By: #### 5 8410-2 ####[facility] LABORATORYCLIA [id number] [address] [place] RBC (Bld) [#/Vol] 2.88 10*6/uL Low 3.90-5.20 [facility] Comment on above: Order Comment: Speci men Type: BLOOD SPECIMENOrdering Facility: [facility] Address: [address] [place] [address] Performed By: #### 5 8410-2 ####[facility] LABORATORYCLIA [id number] [address] OF [facility] WBC (Bld) [#/Vol] 6.37 10*3/uL Normal 3.70-11.00 [facility] Comment on above: Order Comment: Speci men Type: BLOOD SPECIMENOrdering Facility: [facility] Address: [address] [place] [address] Performed By: #### 5 8410-2 ####[facility] LABORATORYCLIA [id number] [address] NT-proBNP [facility] 06-24 Natriuretic peptide.B prohormone N-Terminal [Mass/Vol] 2971 pg/mL High <450 [facility] Comment on above: Order Comment: Speci men Type: BLOOD SPECIMENOrdering Facility: [facility] Address: [address] [place] [address] Performed By: #### 2 4321-2, 89368-5 ####[facility] LABORATORYCLIA [id number] [address] aPTT PPPon 06-24-2022 aPTT Coag (PPP) [Time] 64.2 s High 23.0-32.4 [facility] Comment on above: Order Comment: Speci men Type: BLOOD SPECIMEN [facility] Address: [address] [place] [address] Performed By: #### T SCR #### [facility] CLIA [id number] aPTT Coag (PPP) [Time] 45.8 s High 23.0-32.4 [facility] Comment on above: Order Comment: Speci men Type: BLOOD SPECIMENOrdering Facility: [facility] Address: [address] [place] [address] Performed By: #### 3 2355-0 #### [facility] CLIA [id number] [address] [place] [address] aPTT Coag (PPP) [Time] 116.8 s High 28.5-34.0 [facility] Comment on above: Order Comment: Speci men Type: BLOOD SPECIMENOrdering Facility: [facility] Address: [address] [place] [address] Performed By: #### 1 4979-9 ####[facility] LABORATORYCLIA [id number] [address] ALLIED HEALTHon 06-23-2022 ALLIED HEALTH HNO ID: [id number] Author: RT Rhina(R) Service: Radiology Author Type: Technologist Type: Allied Health Filed: 06/23/2022 9:45 PM Note Text: Radiology Service Progress Note PATIENT NAME: Mel Castillo DATE OF SERVICE: June 23, 2022 TIME: 9:41 PM PATIENT IDENTITY VERIFICATION COMPLETED USING TWO (2) IDENTIFIERS: Name and Date of confirmed by patient verbally and Name and Date of confirmed by identification band. FALL SCREENING: Has the patient had 2 falls in the last year or 1 fall with injury or currently using an Ambulatory Assistive Device (Walker, Cane, Wheelchair, Crutches, etc.)? Inpatient: Screened on floor PATIENT GENDER DATA: Female. status: : No status: NO. PATIENT RELEVANT IMPLANT DATA REVIEWED: Not Applicable RADIOLOGY DEPARTMENT: General X-ray: Exam(s) Completed: Chest X-Ray PERIPHERAL IV DATA: Not applicable SIGNED BY: Jessica Robledo RT(R) June 23, 2022 9:41 PM Normal [facility] CBC panel Auto (Bld)on 06-23 Erythrocyte distribution width (RBC) [Ratio] 16.6 % High 11.5-15.0 [facility] Comment on above: Order Comment: Speci men Type: BLOOD SPECIMENOrdering Facility: [facility] Address: [address] [place] [address] Performed By: #### 5 8410-2 ####[facility] LABORATORYCLIA [id number] [address] [place] Hematocrit (Bld) [Volume fraction] 29.6 % Low 36.0-46.0 [facility] Comment on above: Order Comment: Speci men Type: BLOOD SPECIMENOrdering Facility: [facility] Address: [address] [place] [address] Performed By: #### 5 8410-2 ####[facility] LABORATORYCLIA [id number] [address] [place] Hemoglobin (Bld) [Mass/Vol] 9.5 g/dL Low 11.5-15.5 [facility] Comment on above: Order Comment: Speci men Type: BLOOD SPECIMENOrdering Facility: [facility] Address: [address] [place] [address] Performed By: #### 5 8410-2 ####[facility] LABORATORYCLIA [id number] [address] [place] MCH (RBC) [Entitic mass] 30.4 pg Normal 26.0-34.0 [facility] Comment on above: Order Comment: Speci men Type: BLOOD SPECIMENOrdering Facility: [facility] Address: [address] [place] [address] Performed By: #### 5 8410-2 ####[facility] LABORATORYCLIA [id number] [address] STATES OF [facility] MCHC (RBC) [Mass/Vol] 32.1 g/dL Normal 30.5-36.0 [facility] Comment on above: Order Comment: Speci men Type: BLOOD SPECIMENOrdering Facility: [facility] Address: [address] [place] [address] Performed By: #### 5 8410-2 ####[facility] LABORATORYCLIA [id number] [address] [place] MCV (RBC) [Entitic vol] 94.6 fL Normal 80.0-100.0 [facility] Comment on above: Order Comment: Speci men Type: BLOOD SPECIMENOrdering Facility: [facility] Address: [address] [place] [address] Performed By: #### 5 8410-2 ####[facility] LABORATORYCLIA [id number] [address] [place] Nucleated RBC (Bld) [#/Vol] 0.07 10*3/uL High <0.01 [facility] Comment on above: Order Comment: Speci men Type: BLOOD SPECIMENOrdering Facility: [facility] Address: [address] [place] [address] Performed By: #### 5 8410-2 ####[facility] LABORATORYCLIA [id number] [address] [place] Platelet mean volume (Bld) [Entitic vol] 9.9 fL Normal 9.0-12.7 [facility] Comment on above: Order Comment: Speci men Type: BLOOD SPECIMENOrdering Facility: [facility] Address: [address] [place] [address] Performed By: #### 5 8410-2 ####[facility] LABORATORYCLIA [id number] [place] [address] [place] Platelets (Bld) [#/Vol] 241 10*3/uL Normal 150-400 [facility] Comment on above: Order Comment: Speci men Type: BLOOD SPECIMENOrdering Facility: [facility] Address: [address] [place] [address] Performed By: #### 5 8410-2 ####[facility] LABORATORYCLIA [id number] [address] OF [facility] RBC (Bld) [#/Vol] 3.13 10*6/uL Low 3.90-5.20 [facility] Comment on above: Order Comment: Speci men Type: BLOOD SPECIMENOrdering Facility: [facility] Address: [address] [place] [address] Performed By: #### 5 8410-2 ####[facility] LABORATORYCLIA [id number] [address] WBC (Bld) [#/Vol] 6.86 10*3/uL Normal 3.70-11.00 [facility] Comment on above: Order Comment: Speci men Type: BLOOD SPECIMENOrdering Facility: [facility] Address: [address] [place] [address] Performed By: #### 5 8410-2 ####[facility] LABORATORYCLIA [id number] [address] NUTRITIONon 06-23-2022 NUTRITION HNO ID: [id number] Author: Parul Mcallister RD Service: Nutrition Therapy Author Type: Registered Dietitian Type: Nutrition Filed: 06/23/2022 2:28 PM Note Text: NUTRITION THERAPY INITIAL ASSESSMENT SERVICE DATE: 06/23/2022 SERVICE TIME: 11:09 AM Nutrition Assessment: Recommended Malnutrition Diagnosis: No Malnutrition Identified Nutrition Diagnosis: Problem: Suboptimal protein/energy intake Related to: Inability to consume sufficient nutrients As evidenced by: Patient/family self-report;Intake records Estimated kilocalorie needs: 2109-6608 Calorie Calculation Method: 25-30 kcals/kg Estimated protein needs (grams): 54-65 Grams protein determined by: 1.0 - 1.2 g/kg Care Plan: Continue current diet Supplements: Ensure Max (1x/d) Monitor and Evaluation: Meet greater than 75% of estimated needs;Monitor bowel function;Monitor fluid/electrolyte balance;Monitor labs, I/Os, vital signs, weight Discharge Recommendations: Diet;Oral Supplements Diet: Regular Oral Supplements: Protein supplement as needed HPI: 81 yo female admitted with leg swelling and pain. S/p unsuccessful thrombolysis 06/16. GI consulted for concern of GI bleed. S/p EGD 06/21 significant for a large duodenal bulb ulcer. BM 06/22 without melena. Intake History: Nutrition Intake Prior to Admission: Greater than 75% estimated energy needs greater than or equal to 3 months Current Nutrition Intake: Less than 75% estimated energy needs Current Intake Over time: Greater than or equal to 7 days Diet Orders (From admission, onward) Start Ordered 06/22/22 1130 DIET REGULAR START NOW 06/22/22 1125 Anthropometrics: Height: 162.6 cm (5' 4") Weight: 71.2 kg (156 lb 15.5 oz) Dosing Weight: 54.4 kg (120 lb) Usual Weight: 72.6 kg (160 lb) Usual Weight Obtained From: Patient Body mass index is 26.94 kg/m?. Overweight Weight change percentage over time: UTD. Patient declines noticable losses and limited hx per EMR. Also must take into account LE edema. Physical Exam: Subcutaneous fat loss: No fat loss Muscle loss: Mild (Baseline for advanced age per pt) Potential micronutrient deficiency: No deficiency identified Edema/Ascites: Lower extremities Lower Extremity: Moderate 2+ (LLE) GI Symptoms: Anorexia (due to leg pain) ;Abdominal pain Functional Status: Not related to malnutrition status Potential Signs of Inflammation: Hypoalbuminemia;Chronic condition COPD MNT Billing: $ Initial Assessment: 1-15 minutes SIGNATURE: Parul Mcallister RD PATIENT NAME: Mel Castillo DATE: June 23, 2022 TIME: 11:09 AM Normal [facility] XR CHEST 2V FRONTAL/LATon XR CHEST 2V FRONTAL/LAT * * *Final Repor t* * * DATE OF EXAM: Jun 23 2022 9:44PM AKX [id number] - XR CHEST 2V FRONTAL/LAT / PROCEDURE REASON: Dyspnea on exertion (PAINTING) * * * * Physician Interpretation * * * * EXAMINATION: CHEST RADIOGRAPH (2 VIEW FRONTAL and LATERAL) CLINICAL HISTORY: Dyspnea on exertion (PAINTING) MQ: XC2_6 EXAM DATE/TIME: 06/23/2022 9:44 PM COMPARISON: 06/17/2022 RESULT: Lines, tubes, and devices: The patient has had previous repair of right humerus fracture. Lungs and pleura: Worsening opacity in the left midlung most suspicious for pneumonia. Persistent patchy opacities at both lung bases. Small bilateral pleural effusions. Cardiomediastinal silhouette: Heart size normal. Slight widening of the superior mediastinum. Stable. Bones and soft tissues: Deformity of the proximal left humerus most consistent with old fracture. IMPRESSION: Worsening opacity in the left midlung most suspicious for pneumonia. Stable opacities at the lung bases may represent other sites of pneumonia. Small bilateral pleural effusions. Manager Hris: DEVEN Transcribe Date/Time: Jun 24 2022 6:34A Dictated by : DI MINER MD This examination was interpreted and the report reviewed and electronically signed by: DI MINER MD on Jun 24 2022 6:36AM EST [id number] Normal [facility] aPTT PPPon 06-23-2022 aPTT Coag (PPP) [Time] 46.7 s High 23.0-32.4 [facility] Comment on above: Order Comment: Speci men Type: BLOOD SPECIMENOrdering Facility: [facility] Address: [address] [place] [address] Performed By: #### 1 4979-9 ####[facility] LABORATORYCLIA [id number] [address] OF [facility] aPTT Coag (PPP) [Time] 53.8 s High 23.0-32.4 [facility] Comment on above: Order Comment: Speci men Type: BLOOD SPECIMENOrdering Facility: [facility] Address: [address] [place] [address] Performed By: #### 1 4979-9 ####[facility] LABORATORYCLIA [id number] [address] aPTT Coag (PPP) [Time] 114.5 s High 23.0-32.4 [facility] Comment on above: Order Comment: Speci men Type: BLOOD SPECIMEN [facility] Address: [address] [address] Performed By: #### T SCR #### [facility] CLIA [id number] [address] CBC W Auto Differential pane l (Bld)on 06-22-2022 Basophils (Bld) [#/Vol] 0.03 10*3/uL Normal <0.11 [facility] Comment on above: Order Comment: Speci men Type: BLOOD SPECIMENOrdering Facility: [facility] Address: [address] [place] [address] Result Comment: Diff erential confirmed by visual scan of peripheral blood smear slide Performed By: #### 5 7021-8 ####[facility] LABORATORYCLIA [id number] [address] Basophils/100 WBC (Bld) 0.5 % Normal A [facility] Comment on above: Order Comment: Speci men Type: BLOOD SPECIMENOrdering Facility: [facility] Address: [address] [place] [address] Performed By: #### 5 7021-8 ####[facility] LABORATORYCLIA [id number] [address] Differential cell count method Nom (Bld) Auto Normal [facility] Comment on above: Order Comment: Speci men Type: BLOOD SPECIMENOrdering Facility: [facility] Address: [address] [address] Performed By: #### 5 7021-8 ####[facility] LABORATORYCLIA [id number] [address] STATES OF [facility] Eosinophils (Bld) [#/Vol] 10*3/uL Normal <0.46 [facility] Comment on above: Order Comment: Speci men Type: BLOOD SPECIMENOrdering Facility: [facility] Address: [address] [address] Performed By: #### 5 7021-8 ####[facility] LABORATORYCLIA [id number] [address] [place] Eosinophils/100 WBC (Bld) 0.0 % Normal [facility] Comment on above: Order Comment: Speci men Type: BLOOD SPECIMENOrdering Facility: [facility] Address: [address] [place] [address] Performed By: #### 5 7021-8 ####[facility] LABORATORYCLIA [id number] [address] [place] Erythrocyte distribution width (RBC) [Ratio] 16.2 % High 11.5-15.0 [facility] Comment on above: Order Comment: Speci men Type: BLOOD SPECIMENOrdering Facility: [facility] Address: [address] [place] [address] Performed By: #### 5 7021-8 ####[facility] LABORATORYCLIA [id number] [address] [place] Hematocrit (Bld) [Volume fraction] 25.1 % Low 36.0-46.0 [facility] Comment on above: Order Comment: Speci men Type: BLOOD SPECIMENOrdering Facility: [facility] Address: [address] [place] [address] Performed By: #### 5 7021-8 ####[facility] LABORATORYCLIA [id number] [address] [place] Hemoglobin (Bld) [Mass/Vol] 8.4 g/dL Low 11.5-15.5 [facility] Comment on above: Order Comment: Speci men Type: BLOOD SPECIMENOrdering Facility: [facility] Address: [address] [place] [address] Performed By: #### 5 7021-8 ####[facility] LABORATORYCLIA [id number] [address] [place] Immature granulocytes (Bld) [#/Vol] 0.60 10*3/uL High <0.10 [facility] Comment on above: Order Comment: Speci men Type: BLOOD SPECIMENOrdering Facility: [facility] Address: [address] [address] Performed By: #### 5 7021-8 ####[facility] LABORATORYCLIA [id number] [address] Immature granulocytes/100 WBC (Bld) 10.3 % Normal [facility] Comment on above: Order Comment: Speci men Type: BLOOD SPECIMENOrdering Facility: [facility] Address: [address] [place] [address] Performed By: #### 5 7021-8 ####[facility] LABORATORYCLIA [id number] [address] [place] Lymphocytes (Bld) [#/Vol] 1.38 10*3/uL Normal 1.00-4.00 [facility] Comment on above: Order Comment: Speci men Type: BLOOD SPECIMENOrdering Facility: [facility] Address: [address] [place] [address] Performed By: #### 5 7021-8 ####[facility] LABORATORYCLIA [id number] [address] Lymphocytes/100 WBC (Bld) 23.7 % Normal [facility] Comment on above: Order Comment: Speci men Type: BLOOD SPECIMENOrdering Facility: [facility] Address: [address] [place] [address] Performed By: #### 5 7021-8 ####[facility] LABORATORYCLIA [id number] [address] [place] MCH (RBC) [Entitic mass] 31.2 pg Normal 26.0-34.0 [facility] Comment on above: Order Comment: Speci men Type: BLOOD SPECIMENOrdering Facility: [facility] Address: [address] [place] [address] Performed By: #### 5 7021-8 ####[facility] LABORATORYCLIA [id number] [address] [place] MCHC (RBC) [Mass/Vol] 33.5 g/dL Normal 30.5-36.0 [facility] Comment on above: Order Comment: Speci men Type: BLOOD SPECIMENOrdering Facility: [facility] Address: [address] [place] [address] Performed By: #### 5 7021-8 ####[facility] LABORATORYCLIA [id number] [address] [place] MCV (RBC) [Entitic vol] 93.3 fL Normal 80.0-100.0 [facility] Comment on above: Order Comment: Speci men Type: BLOOD SPECIMENOrdering Facility: [facility] Address: [address] [place] [address] Performed By: #### 5 7021-8 ####[facility] LABORATORYCLIA [id number] [address] [place] Monocytes (Bld) [#/Vol] 0.50 10*3/uL Normal <0.87 [facility] Comment on above: Order Comment: Speci men Type: BLOOD SPECIMENOrdering Facility: [facility] Address: [address] [place] [address] Performed By: #### 5 7021-8 ####[facility] LABORATORYCLIA [id number] [address] Monocytes/100 WBC (Bld) 8.6 % Normal [facility] Comment on above: Order Comment: Speci men Type: BLOOD SPECIMENOrdering Facility: [facility] Address: [address] [place] [address] Performed By: #### 5 7021-8 ####[facility] LABORATORYCLIA [id number] [address] [place] Neutrophils (Bld) [#/Vol] 3.31 10*3/uL Normal 1.45-7.50 [facility] Comment on above: Order Comment: Speci men Type: BLOOD SPECIMENOrdering Facility: [facility] Address: [address] [place] [address] Performed By: #### 5 7021-8 ####[facility] LABORATORYCLIA [id number] [address] [place] Neutrophils/100 WBC (Bld) 56.9 % Normal [facility] Comment on above: Order Comment: Speci men Type: BLOOD SPECIMENOrdering Facility: [facility] Address: [address] [place] [address] Performed By: #### 5 7021-8 ####[facility] LABORATORYCLIA [id number] [place] [address] [place] Nucleated RBC (Bld) [#/Vol] 0.10 10*3/uL High <0.01 [facility] Comment on above: Order Comment: Speci men Type: BLOOD SPECIMENOrdering Facility: [facility] Address: [address] [place] [address] Performed By: #### 5 7021-8 ####[facility] LABORATORYCLIA [id number] [address] [place] Nucleated RBC/100 WBC (Bld) [Ratio] 1.7 /100 WBC Normal [facility] Comment on above: Order Comment: Speci men Type: BLOOD SPECIMENOrdering Facility: [facility] Address: [address] [place] [address] Performed By: #### 5 7021-8 ####[facility] LABORATORYCLIA [id number] [address] [place] Platelet mean volume (Bld) [Entitic vol] 9.7 fL Normal 9.0-12.7 [facility] Comment on above: Order Comment: Speci men Type: BLOOD SPECIMENOrdering Facility: [facility] Address: [address] [address] Performed By: #### 5 7021-8 ####[facility] LABORATORYCLIA [id number] [place] [address] [place] Platelets (Bld) [#/Vol] 209 10*3/uL Normal 150-400 [facility] Comment on above: Order Comment: Speci men Type: BLOOD SPECIMENOrdering Facility: [facility] Address: [address] [place] [address] Performed By: #### 5 7021-8 ####[facility] LABORATORYCLIA [id number] [address] RBC (Bld) [#/Vol] 2.69 10*6/uL Low 3.90-5.20 [facility] Comment on above: Order Comment: Speci men Type: BLOOD SPECIMENOrdering Facility: [facility] Address: [address] [place] [id number] Performed By: #### 5 7021-8 ####[facility] LABORATORYCLIA [id number] [address] WBC (Bld) [#/Vol] 5.82 10*3/uL Normal 3.70-11.00 [facility] Comment on above: Order Comment: Speci men Type: BLOOD SPECIMENOrdering Facility: [facility] Address: [address] [place], [place] [id number] Performed By: #### 5 7021-8 ####[facility] LABORATORYCLIA [id number] [address] CONSULT PROGon 06-22-2022 CONSULT PROG HNO ID: [id number] Author: Eliza Martin APRN.SIDE STITCHER Service: Gastroenterology Author Type: Nurse Specialist Type: Consult Progress Note Filed: 06/22/2022 3:24 PM Note Text: GI CONSULT PROGRESS NOTE SERVICE DATE: 06/22/2022 SERVICE TIME: 3:14 PM CONSULTING SERVICE: Gastroenterology Subjective INTERVAL HPI: GI following for GI bleed. S/p EGD on 06/21 which showed esophagitis and large duodenal bulb ulcer. Patient without GI complaints. BM brown. Hgb stable o Heparin infusion Current Facility-Administered Medications Medication Dose Route Frequency sodium chloride 0.9 % (flush) 3-5 mL (BD POSIFLUSH) 3-5 mL INTRAVENOUS q 12 H HYDROcodone 5 mg - acetaminophen 325 mg tablet (NORCO) 1-2 tablet ORAL q 6 H PRN acetaminophen 650 mg tab(s) (TYLENOL) 650 mg ORAL q 8 H metoprolol tartrate (short acting) 25 mg tab(s) (LOPRESSOR) 25 mg ORAL q 12 H NaCl 0.9% iv flush bag 20 mL INTRAVENOUS PRN HYDROmorphone (PF) 0.5 mg injection (DILAUDID) 0.5 mg INTRAVENOUS q 3 H PRN pantoprazole 40 mg injection (PROTONIX) 40 mg INTRAVENOUS BID AC (0600/1600) ascorbic acid (vitamin C) 500 mg tab(s) (VITAMIN C) 500 mg ORAL TID zinc oxide 20 % TOPICAL PRN lactobacillus rhamnosus 10 billion cell (CULTURELLE) capsule 1 capsule ORAL DAILY piperacillin-tazobactam iv piggyback 3.375 g in dextrose (iso-osmotic) 50 mL (ZOSYN) 3.375 g INTRAVENOUS q 6 H zinc oxide 20 % TOPICAL BID sucralfate 1 g tab(s) (CARAFATE) 1 g ORAL QID heparin iv infusion 25,000 units in NaCl 0.45% 250 mL STANDARD NOMOGRAM 0-3,000 Units/hr INTRAVENOUS CONTINUOUS And heparin RATE CHANGE bolus 1,000-10,000 Units for subtherapeutic PTTAC results 1,000-10,000 Units INTRAVENOUS PRN Objective PHYSICAL EXAM: Physical Exam Performed: Physical Exam Vitals and nursing note reviewed. Constitutional: General: She is not in acute distress. HENT: Head: Normocephalic. Nose: Nose normal. Mouth/Throat: Mouth: Mucous membranes are moist. Eyes: General: No scleral icterus. Cardiovascular: Rate and Rhythm: Normal rate and regular rhythm. Pulses: Normal pulses. Heart sounds: Normal heart sounds. Pulmonary: Effort: Pulmonary effort is normal. No respiratory distress. Breath sounds: Normal breath sounds. Abdominal: General: Bowel sounds are normal. There is no distension. Palpations: Abdomen is soft. Musculoskeletal: General: Normal range of motion. Cervical back: Normal range of motion. Skin: General: Skin is warm and dry. Capillary Refill: Capillary refill takes less than 2 seconds. Coloration: Skin is not jaundiced. Neurological: General: No focal deficit present. Mental Status: She is alert. Psychiatric: Mood and Affect: Mood normal. BP 141/63 Pulse 85 Temp (Src) 97.5 (Oral) Resp 20 Ht 5' 4" (1.63m) Wt 156 lb 15.5 oz (71.2kg) SpO2 96% BMI 26.93 kg/(m2). O2 Therapy: Nasal Cannula, Liters: 2 DATA: Diagnostic tests reviewed for today's visit: Most recent labs and imaging results. CBC, Coags, BMP, Mg, Phos Recent Labs 06/22/22 1145 06/22/22 0609 06/21/22 0554 06/20/22 1903 06/20/22 0552 WBC -- 5.82 -- -- 9.90 HB -- 8.4* 6.9* 7.0* 7.8* HCT -- 25.1* -- -- 23.9* PLT -- 209 -- -- 233 INR <0.9* -- -- -- -- APTT 25.6 -- -- -- -- NA -- 136 -- -- 136 K -- 4.7 -- -- 4.7 CHLOR -- 105 -- -- 106* CO2 -- 21* -- -- 22 BUN -- 7 -- -- 16 CREAT -- 0.88 -- -- 0.84 GLUC -- 95 -- -- 92 CA -- 8.6 -- -- 8.5 Liver Function, Amylase, AND Lipase Recent Labs 06/22/22 0609 TPROT 5.3* ALB 2.4* ALT 21 AST 19 ALKPHOS 129* TBILI 0.6 EGD 06/21 - [place] Grade D esophagitis. Large, 1.5cm duodenal bulb ulcer without high risk stigmata Impression/Recommendati ons Suspected GI bleed - with EGD findings of esophagitis. Stool brown. Hgb stable since EGD. On Heparin - Monitor Hgb/Hct - transfuse as needed - Monitor and document all episodes of GI bleeding - Diet as tolerated - Continue Protonix IV twice daily. Switch to oral twice daily on 06/24 - OK for Heparin per GI with transition to oral anticoagulants if Hgb remains stable. - Avoid NSAIDS - Follow results of H. Pylori antibody. Treat as needed. - Will need repeat EGD in 2-3 months as outpatient for assess for healing of ulcer. Acute uncomplicated diverticulitis - with no evidence of abscess or perforation. Reports continue bilateral lower quadrant abdominal pain - OK for diet as tolerated - On Zosyn. Recommend to continue for 7 days total. Can switch to oral - Recommend outpatient follow up with GI after discharge for colonoscopy in 2-3 months. Diverticulosis Guidelines: - Increase dietary fiber OR take fiber supplement - Reduce fat and red meat intake - Diet as tolerated - Continue frequent physical activity such as walking, biking or swimming - Lose weight. - Avoid smoking - Avoid NSAIDS (Aspirin, Motrin, Ibuprofen) - Increase water intake - Avoid constipation. Use laxatives and stool softene (more content not included)... Normal [facility] Comprehensive metabolic 2000 panelon 06-22-2022 Albumin [Mass/Vol] 2.4 g/dL Low 3.9-4.9 [facility] Comment on above: Order Comment: Speci men Type: BLOOD SPECIMENOrdering Facility: [facility] Address: [address] [address] Performed By: #### 2 4323-8 ####[facility] LABORATORYCLIA [id number] [address] STATES OF [facility] ALP [Catalytic activity/Vol] 129 U/L High 34-123 [facility] Comment on above: Order Comment: Speci men Type: BLOOD SPECIMENOrdering Facility: [facility] Address: [address] [address] Performed By: #### 2 4323-8 ####[facility] LABORATORYCLIA [id number] [address] [place] [facility] ALT With P-5'-P [Catalytic activity/Vol] 21 U/L Normal 7-38 [facility] Comment on above: Order Comment: Speci men Type: BLOOD SPECIMENOrdering Facility: [facility] Address: [address] [place] [address] Performed By: #### 2 4323-8 ####[facility] LABORATORYCLIA [id number] [address] [place] [facility] Anion gap [Moles/Vol] 10 mmol/L Normal 9-18 [facility] Comment on above: Order Comment: Speci men Type: BLOOD SPECIMENOrdering Facility: [facility] Address: [address] [address] Performed By: #### 2 4323-8 ####[facility] LABORATORYCLIA [id number] [place] [address] [place] AST With P-5'-P [Catalytic activity/Vol] 19 U/L Normal 13-35 [facility] Comment on above: Order Comment: Speci men Type: BLOOD SPECIMENOrdering Facility: [facility] Address: [address] [place] [address] Performed By: #### 2 4323-8 ####[facility]ORATORYCLIA [id number] [place] [address] [place] Bilirubin [Mass/Vol] 0.6 mg/dL Normal 0.2-1.3 [facility] Comment on above: Order Comment: Speci men Type: BLOOD SPECIMENOrdering Facility: [facility] Address: [address] [place] [address] Performed By: #### 2 4323-8 ####[facility] LABORATORYCLIA [id number] [place] [address] [place] Calcium [Mass/Vol] 8.6 mg/dL Normal 8.5-10.2 [facility] Comment on above: Order Comment: Speci men Type: BLOOD SPECIMENOrdering Facility: [facility] Address: [address] [place] [address] Performed By: #### 2 4323-8 ####[facility]ORATORYCLIA [id number] [place] [address] [place] Chloride [Moles/Vol] 105 mmol/L Normal 97-105 [facility] Comment on above: Order Comment: Speci men Type: BLOOD SPECIMENOrdering Facility: [facility] Address: [address] [place] [address] Performed By: #### 2 4323-8 ####[facility] LABORATORYCLIA [id number] [place] [address] [place] CO2 [Moles/Vol] 21 mmol/L Low 22-30 [facility] Comment on above: Order Comment: Speci men Type: BLOOD SPECIMENOrdering Facility: [facility] Address: [address] [place] [address] Performed By: #### 2 4323-8 ####[facility]ORATORYCLIA [id number] [address] STATES OF [facility] Creatinine [Mass/Vol] 0.88 mg/dL Normal 0.58-0.96 [facility] Comment on above: Order Comment: Rhina mason Type: BLOOD SPECIMENOrdering Facility: [facility] Address: [address] [place] [address] Performed By: #### 2 4323-8 ####[facility] LABORATORYIA [id number] [address] ESTIMATED GLOMERULAR FILTRATION RATE 66 mL/min/1.73m??? Normal >=60 [facility] Comment on above: Order Comment: Rhina mason Type: BLOOD SPECIMENOrdering Facility: [facility] Address: [address] [place] [address] Result Comment: Isa mated Glomerular Filtration Rate (eGFR) is calculated using the 2020 CKD-EPI creatinine equation. This equation utilizes serum creatinine, sex, and age as parameters. The creatinine assay has traceable calibration to isotope dilution-mass spectrometry. Refer to KDIGO guidelines for clinical interpretation. In patients with unstable renal function, e.g. those with acute kidney injury, the eGFR may not accurately reflect actual GFR. Performed By: #### 2 4323-8 ####[facility] HOSPITALIA [id number] [address] Glucose [Mass/Vol] 95 mg/dL Normal 74-99 [facility] Comment on above: Order Comment: Rhina isabella Type: BLOOD SPECIMENOrdering Facility: [facility] Address: [address] [place] [address] Result Comment: The [place] [employer] (ADA) provides guidance for cutoff values for fasting glucose and random glucose. The ADA defines fasting as no caloric intake for at least 8 hours. Fasting plasma glucose results between 100 to 125 mg/dL indicate increased risk for diabetes (prediabetes). Fasting plasma glucose results greater than or equal to 126 mg/dL meet the criteria for diagnosis of diabetes. In the absence of unequivocal hyperglycemia, results should be confirmed by repeat testing. In a patient with classic symptoms of hyperglycemia or hyperglycemic crisis, random plasma glucose results greater than or equal to 200 mg/dL meet the criteria for diagnosis of diabetes. Reference: Standards of Medical Care in Diabetes 2016, [place] [employer]. Diabetes Care. 2016.39(Suppl 1). Performed By: #### 2 4323-8 ####[facility] LABORATORYCLIA [id number] [address] [place] [facility] Potassium [Moles/Vol] 4.7 mmol/L Normal 3.7-5.1 [facility] Comment on above: Order Comment: Speci men Type: BLOOD SPECIMENOrdering Facility: [facility] Address: [address] [place] [address] Performed By: #### 2 4323-8 ####[facility] LABORATORYCLIA [id number] [address] STATES OF [facility] Protein [Mass/Vol] 5.3 g/dL Low 6.3-8.0 [facility] Comment on above: Order Comment: Speci men Type: BLOOD SPECIMENOrdering Facility: [facility] Address: [address] [place] [address] Performed By: #### 2 4323-8 ####[facility] LABORATORYCLIA [id number] [address] Sodium [Moles/Vol] 136 mmol/L Normal 136-144 [facility] Comment on above: Order Comment: Speci men Type: BLOOD SPECIMENOrdering Facility: [facility] Address: [address] [place] [address] Performed By: #### 2 4323-8 ####[facility] LABORATORYCLIA [id number] [address] [place] [facility] Urea nitrogen [Mass/Vol] 7 mg/dL Normal 7-21 [facility] Comment on above: Order Comment: Speci men Type: BLOOD SPECIMENOrdering Facility: [facility] Address: [address] [place] [address] Performed By: #### 2 4323-8 ####[facility] LABORATORYCLIA [id number] [address] [place] H. pylori IgG IA Qlon 2021 H. PYLORI IGG, QUAL Negative Normal Negative [facility] Comment on above: Order Comment: Rhina mason Type: BLOOD SPECIMENOrdering Facility: [facility] Address: [address] [place] [address] Result Comment: Shakeel ot exclude H. pylori infection if the specimen collected 3-4 weeks after onset of symptoms. Performed By: #### 1 7859-0 ####[facility] LABCLIA [id number] [facility]EDESK [id number] [place] PT panel Coag (PPP)on 2021 INR Coag (PPP) [Relative time] {INR} Low 0.9-1.3 [facility] Comment on above: Order Comment: Rhina mason Type: BLOOD SPECIMEN [facility] Address: [address] [place] [address] Result Comment: Mayra min K Antagonist (VKA) Therapeutic Range: INR 2 to 3 (Target INR of 2.5) Note: For patients treated with VKA drugs, such as warfarin, the [place] [employer] 2012 Guideline recommends a therapeutic INR range of 2 to 3 (target INR of 2.5). This recommendation includes high-risk patients with antiphospholipid syndrome with previous arterial or venous thromboembolism, current-generation mechanical or bioprosthetic aortic heart valve replacement. Note: Patients with mechanical aortic valve replacement and additional risk factors for thromboembolic events (atrial fibrillation, previous thromboembolism, LV dysfunction, hypercoagulable conditions) or an older generation mechanical AVR (i.e., ball in-Cage) or any mechanical MVR should have a INR therapeutic range of 2.5 to 3.5 (target INR of 3). Louise GH, et al. Chest 2012, 141:7S-47S Daren RA, et al. JACC 2017, 70: 252-289 Performed By: #### T SCR #### [facility] CLIA [id number] [address] [place] [address] [place] PT Coag (PPP) [Time] 9.9 s Normal 9.7-13.0 [facility] Comment on above: Order Comment: Rhina mason Type: BLOOD SPECIMEN [facility] Address: [place] [address] Performed By: #### T SCR #### [facility] CLIA [id number] 1 [place] [address] [place] THERAPY NTon 06-22-2022 THERAPY NT HNO ID: [id number] Author: Shannan Segovia, OTR/L Service: Occupational Therapy Author Type: Occupational Therapist Type: Therapy (PT/OT/Speech/Resp) Filed: 06/22/2022 11:27 AM Note Text: Occupational Therapy Evaluation SERVICE DATE: 06/22/2022 SERVICE TIME: 1037 to 1105 ROOM: [place] [address] Recommended Discharge Disposition: Subacute/SNF Recommended Discharge Disposition Comments: patient not at functional baseline. Recommended Discharge Disposition Due to: Patient requires daily, facility-based rehabilitation from at least one discipline due to:;ADL impairment resulting in caregiver dependence;decline in functional status requiring daily skilled care OT 6 Clicks Score: 16 Precautions/Activity Restrictions: Fall Risk;Bed/Chair Alarm;Lines/Tubes/Drain s Current Hospital Course: A-fib with RVR in ED as well as cyanotic skin sL knee down; found to have an occulsion L superfical femoral a.; s/p venogram 06/16; developed GI bleed--being prepped for colonoscopy Reason for Hospital Admission: LLE pain and discoloration Relevant Past Medical History: + tobacco, A-fib, DVT with IVC filter Response to Therapy Interventions: Good participation in activities Continue skilled needs due to: Functional impairment, Safety concerns Occupational Therapy Problem List: Safety Deficits;Impaired Self Care;Decreased Activity Tolerance;Functional Mobility Impairment;Decreased Strength;Balance Impaired Cognition/Communication Deficits Responsiveness: Alert Follows Commands: 2-step Commands Executive Function Deficits: Safety Awareness Safety Awareness Deficit: Minimal impairment Treatment Interventions: Education;Energy Conservation Training;Self Care / Home Management;Strengthenin g;Functional Mobility Training;Balance Training Plan for next visit: Bathing training, Dressing training Home Environment Patient Lives With: Self/Alone Assistance Available: PRN Entry To Home: Stairs;With Rail Number Of Stairs Into Home: 4 Tub/Shower Type: grab bars with built in seat Laundry: pt was able to complete Equipment Owned: Grab Bars-Shower Prior Functional Level: Required Assistance Assistance Required With: Meals;Transportation;Sh opping Prior Functional Level Comments: patient states that she is normally independent with self care and IADLs. Family helps get groceries. She takes care for her dog Brie. Does not use any DME at baseline. 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 Bathing Upper Body Minimal Assistance Bathing Lower Body Moderate Assistance Dressing Upper Body Minimal Assistance Dressing Lower Body Moderate Assistance Toileting Moderate Assistance Functional Mobility Assist Level Additional Information Rolling Supine to Sit Minimal Assistance Min direction to move each LE closer to the side of bed while engaging the core in order to sit upright. Provided increased time due to SOB. Sit to Supine Scooting Minimal Assistance Cues to scoot forward till feet were on the ground. Sit to Stand Minimal Assistance Cues for hand placement when standing. Stand to Sit Minimal Assistance Bed to Chair Minimal Assistance Stepping Wheeled Walker Min direction for safe, effective sequence when transitioning over to chair. Educated on fall prevention and walker management. Toilet/Commode Shower Functional Mobility Instructed patient on the benefit and value of receiving continued OT services at d/c to increased independence with self care and functional transfers. Therapist intervention for vital sign monitoring to assess hemodynamic and respiratory response to activity to prescribe safe intensity and duration of activity/exercise during above intervention. Blank martell indicate activity not attempted Range of Motion: WFL Strength: WFL Except;Upper Extremity Comments Right Upper Extremity Strength Comments: 4-/5 Left Upper Extremity Strength Comments: 4-/5 Balance: Static Standing;Dynamic Standing Static Standing Balance: Fair Patient able to maintain balance with handhold support, may require occasional minimal assistance Dynamic Standing Balance: Fair Patient accepts minimal challenge, able to maintain balance while turning head/trunk Learning/Educational Needs: Discharge Plan;Disease Process;Equipment;Famil y Education/Training;Func tional Activities/Mobility;Thiago abilitation Techniques and Procedures;Safety;Self Care Goals for Plan of Care: Patient/Caregiver Go (more content not included)... Normal [facility] US ARTERIAL PVR LOWERon 12-0 US ARTERIAL PVR LOWER * * *Final Report* * * DATE OF EXAM: Jun 22 2022 7:43AM A2U 1107 - US ARTERIAL PVR LOWER / PROCEDURE REASON: Arterial embolism * * * * Physician Interpretation * * * * Non-Invasive Vascular Laboratory [facility] Lower Extremity Arterial Physiology Study Bilateral/Complete Date of service/time: 06/22/2022 7:12:00 AM [facility] Name: MEL CASTILLO Date of : 1940 Age: 81 years Gender: F Medical History Tobacco: Former Hypertension: Yes Clinical Indication Rle mild pain. Lle swelling and pain. TECHNIQUE -------- An arterial physiological examination was performed, including measurement of blood pressures using continuous wave Doppler and recording of plethysmographic with or without Doppler waveforms at the below-mentioned limb segments. FINDINGS -------- RIGHT SIDE AT REST Right Pressures Brachial: 137 mmHg Low thigh: 186 mmHg Calf: 144 mmHg Ankle dorsalis pedis: 125 mmHg MICHELLE: 0.91 Ankle posterior tibial: 149 mmHg MICHELLE: 1.09 Digit: 50 mmHg Right PVR Waveforms Low thigh: Mildly dampened. Calf: Mildly dampened. Ankle: Mildly dampened. Transmetatarsal: Mildly dampened. Digit: Mildly dampened. LEFT SIDE AT REST Left PVR Waveforms Digit: Mildly dampened. IMPRESSION Multi-phasic waveforms possibly due to heart. RIGHT SIDE Resting right ankle brachial index: 1.09 Right toe brachial index: 0.36 Normal ankle brachial index at rest in the right leg. Abnormal toe brachial index at rest is evidence of peripheral artery disease. Right ankle: Normal at rest. Right small vessel disease versus vasoconstriction. Due to thigh waveform possible iliac disease. LEFT SIDE No pressures taken due to positive acute dvt involving all veins 06/16/22. Dopplers study was done. PARTS COUNTER REPRESENTATIVE - Biphasic MANAGER DIGITAL AD OPERATIONS - Multiphasic - possible stenosis DP - Monophasic [place] - Biphasic. Technologist: Azar Holcomb S Ordering physician: DWAYNE ZAIDI Interpreting physician: Supriya Ponce MD Final (Updated) RP Manager Hris: IRENE Transcribe Date/Time: Jun 22 2022 7:12A Dictated by : SUPRIYA PONCE MD This examination was interpreted and the report reviewed and electronically signed by: SUPRIYA PONCE MD on Jun 24 2022 1:27PM EST [id number] Normal [facility] aPTT PPPon 06-22-2022 aPTT Coag (PPP) [Time] 43.0 s High 23.0-32.4 [facility] Comment on above: Order Comment: Speci men Type: BLOOD SPECIMENOrdering Facility: [facility] Address: [address] [place] [address] Performed By: #### 1 [id number] ####[facility] LABORATORYCLIA [id number] [address] aPTT Coag (PPP) [Time] 25.6 s Normal 23.0-32.4 [facility] Comment on above: Order Comment: Speci men Type: BLOOD SPECIMEN [facility]ing [facility] Address: [address] [place] [address] Performed By: #### T SCR #### [facility] CLIA [id number] [address] ANES POSTPROC EVALon 022 ANES POSTPROC EVAL HNO ID: [id number] Author: Olu Vasquez MD Service: Anesthesiology Author Type: Physician Type: Anesthesia Postprocedure Evaluation Filed: 06/21/2022 3:20 PM Note Text: POST ANESTHESIA EVALUATION NOTE : 1940 Procedure Summary Date: 06/21/22 Room / Location: [facility] Anesthesia Start: 1134 Anesthesia Stop: 1158 Procedure: EGD DIAGNOSTIC Diagnosis: Scheduled Providers: Sim Elizabeth MD Responsible Provider: Olu Vasquez MD Anesthesia Type: MAC ASA Status: 3 Anesthesia Type: MAC Airway Type: No value filed. Last Vitals Vitals Value Taken Time BP 115/54 06/21/22 1210 Temp 36.3 ?C (97.3 ?F) 06/21/22 1155 Pulse 80 06/21/22 1210 Resp 16 06/21/22 1210 SpO2 96 % 06/21/22 1210 Post Anesthesia Patient Status Patient Evaluation: PACU. PACU/ICU Patient Condition: stable. Anticipated Disposition: inpatient floor planned admission. Neurological Status: aware and responsive. Pulmonary Status: breathing comfortably on supplemental oxygen Airway Control: returned to baseline unsupported. Cardiovascular Status: stable. Pain Management: clinically adequate Postoperative Hydration: acceptable. Intraoperative Events: no significant anesthesia events Post Operative Nausea/Vomiting Status: no significant post operative nausea or vomiting Recommendation: continue current plan of care and further care per PACU/ICU/floor team. Other Remarks: Floor told pt needs transfused once back on the floor. Anesthesia Observations No Documentation SIGNATURE: Olu Vasquez MD PATIENT NAME: eMl Castillo DATE: June 21, 2022 TIME: 3:19 PM CSN: [id number] Normal [facility] ANES PRE-OPon 06-21-2022 ANES PRE-OP HNO ID: [id number] Author: Olu Vasquez MD Service: Anesthesiology Author Type: Physician Type: Anesthesia Preprocedure Evaluation Filed: 06/21/2022 11:32 AM Note Text: ANESTHESIOLOGY DAY OF SURGERY NOTE : 1940 Procedure Information Date/Time: 06/21/22 1130 Scheduled providers: Sim Elizabeth MD Procedure: EGD DIAGNOSTIC Location: [facility] Estimated body mass index is 26.94 kg/m? as calculated from the following: Height as of this encounter: 162.6 cm (5' 4"). Weight as of this encounter: 71.2 kg (156 lb 15.5 oz). 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 Tracheostomy tube not present Mallampati: II. TM distance: >3 FB. Neck ROM: full ROM without neurological symptoms. Mouth opening: adequate. Short neck: no. Thick neck: no Arenas present: no DENTAL Dentures, upper: complete. Dentures, lower: complete. II - ANESTHESIA PLAN ASA Score: 3 Anesthetic Plan: MAC The patient is not a current smoker. NPO Status: adequate Beta Essie Monitoring Plan Monitoring plan: standard ASA. Post Procedure Analgesic Plan Postoperative analgesic plan: other. Informed Consent Anesthetic risks, benefits, alternatives, personnel and consent discussed: yes. Patient / Responsible Constitution Party agrees to proceed: yes Patient / Surrogate agrees to blood products: Yes Potential Anesthesia issues that may suggest increased risk of complications or contraindication to planned procedure: none. Vitals Value Taken Time BP 105/54 06/21/22 1122 Pulse 76 06/21/22 1122 Resp 20 06/21/22 1122 Temp 36.3 ?C (97.3 ?F) 06/21/22 1122 SpO2 99 % 06/21/22 1122 Facility-Administered Medications as of 06/21/2022 Medication Dose Route Frequency - [MAR Hold due to Transfer] zinc oxide 20 % TOPICAL PRN - [MAR Hold due to Transfer] lactobacillus rhamnosus 10 billion cell (CULTURELLE) capsule 1 capsule ORAL DAILY - [MAR Hold due to Transfer] diphenoxylate-atropine 2.5-0.025 mg 2 tablet (LOMOTIL) 2 tablet ORAL TID - [MAR Hold due to Transfer] dextrose 5% in NaCl 0.9% with KCl 20 mEq/L iv infusion 75 mL/hr INTRAVENOUS CONTINUOUS - [MAR Hold due to Transfer] iv contrast (radiology procedure) INTRAVENOUS DIRECTED PRN - [MAR Hold due to Transfer] piperacillin-tazobactam iv piggyback 3.375 g in dextrose (iso-osmotic) 50 mL (ZOSYN) 3.375 g INTRAVENOUS q 6 H - [MAR Hold due to Transfer] pantoprazole 40 mg injection (PROTONIX) 40 mg INTRAVENOUS BID AC (0600/1600) - [MAR Hold due to Transfer] ascorbic acid (vitamin C) 500 mg tab(s) (VITAMIN C) 500 mg ORAL TID - [COMPLETED] oxyCODONE IR 5 mg tab(s) (ROXICODONE) 5 mg ORAL ONCE - [MAR Hold due to Transfer] HYDROmorphone (PF) 0.5 mg injection (DILAUDID) 0.5 mg INTRAVENOUS q 3 H PRN - [MAR Hold due to Transfer] HYDROcodone 5 mg - acetaminophen 325 mg tablet (NORCO) 1-2 tablet ORAL q 6 H PRN - [MAR Hold due to Transfer] acetaminophen 650 mg tab(s) (TYLENOL) 650 mg ORAL q 8 H - [COMPLETED] sodium chloride 0.9 % (flush) 2-10 mL (BD POSIFLUSH) 2-10 mL INTRAVENOUS DIRECTED PRN And - [MAR Hold due to Transfer] perflutren lipid microspheres 1.1 mg/mL 1.3 mL injection (DEFINITY) 1.3 mL INTRAVENOUS DIRECTED PRN - [MAR Hold due to Transfer] metoprolol tartrate (short acting) 25 mg tab(s) (LOPRESSOR) 25 mg ORAL q 12 H - [MAR Hold due to Transfer] NaCl 0.9% iv flush bag 20 mL INTRAVENOUS PRN - [COMPLETED] NaCl 0.9% 1,000 mL iv bolus 1,000 mL INTRAVENOUS ONCE - [COMPLETED] fentaNYL 50 mcg/mL 50 mcg injection (SUBLIMAZE) 50 mcg INTRAVENOUS ONCE - [COMPLETED] heparin nomogram INITIAL BOLUS 80 units/kg/dose INTRAVENOUS ONCE (heparin bolus) - [COMPLETED] lactated ringers 500 mL iv bolus 500 mL INTRAVENOUS ONCE - [COMPLETED] HYDROmorphone (PF) 0.5 mg injection (DILAUDID) 0.5 mg INTRAVENOUS ONCE - [MAR Hold due to Transfer] sodium chloride 0.9 % (flush) 3-5 mL (BD POSIFLUSH) 3-5 mL INTRAVENOUS q 12 H Outpatient Medications as of 06/21/2022 Medication Sig - amLODIPine (NORVASC) 10 mg tablet Take 10 mg by mouth once daily. - dexAMETHasone (DECADRON) 4 mg tablet take 2 tablets by mouth every 12 hours for 3 days then 1 tablet once daily for 2 days - lisinopril (ZESTRIL, PRINIVIL) 5 mg tablet Take 5 mg by mouth once daily. I have interviewed and examined the patient. I have reviewed the medical record and/or the pre-anesthesia evaluation, pertinent labs, and test results. This contains updated information obtained within 48 hours of Surgery/Procedure. SIGNATURE: Olu Dietrich (more content not included)... Normal [facility] CONSULT PROGon 06-21-2022 CONSULT PROG HNO ID: [id number] Author: Fidel Carmen APRN.APPLICATIONS PROJECT MANAGER Service: Wound/Ostomy Author Type: Nurse Practitioner Type: Consult Progress Note Filed: 06/21/2022 1:41 PM Note Text: WOUND CARE SERVICE CONSULT FOOD SERVICES DIRECTOR NOTE SERVICE DATE: 06/21/2022 SERVICE TIME: 941 TIME SPENT (minutes): 30 REASON FOR CONSULT: MAD buttocks, atypical wound Right middle finger. CHIEF COMPLAINT: Right middle finger Subjective HISTORY OF PRESENT ILLNESS: Ms. Jose Alberto Castillo is a 81 year old female who is seen today with Delia Bruno, Wound/wind science and planning, and presented to hospital with complaints of left leg pain with an inability to ambulate. PMH acute bacterial sialadenitis, afib, GERD, HTN, and hypothyroidism. PERTINENT REVIEW OF SYSTEMS: GENERAL: denies fever or chills PAIN ASSESSMENT: denies SKIN: Right middle finger and buttocks RESPIRATORY: denies SOB or cough GI/: denies issues PAST MEDICAL HISTORY Diagnosis Date Acute bacterial sialadenitis Chronic atrial fibrillation (HCC) GERD (gastroesophageal reflux disease) HTN (hypertension) Hypothyroidism PAST SURGICAL HISTORY Procedure Laterality Date DANDC, DIAG AND/OR THERAPEUTIC TOTAL ABDOM HYSTERECTOMY Social History Tobacco Use Smoking status: Every Day Packs/day: 0.50 Years: 50.00 Pack years: 25.00 Types: Cigarettes Smokeless tobacco: Never Substance Use Topics Alcohol use: Not Currently Drug use: Never FAMILY HISTORY Problem Relation Age of Onset Lung Cancer Father Cancer Brother MEDICATIONS: Current Facility-Administered Medications Medication Dose Route Frequency sodium chloride 0.9 % (flush) 3-5 mL (BD POSIFLUSH) 3-5 mL INTRAVENOUS q 12 H HYDROcodone 5 mg - acetaminophen 325 mg tablet (NORCO) 1-2 tablet ORAL q 6 H PRN acetaminophen 650 mg tab(s) (TYLENOL) 650 mg ORAL q 8 H perflutren lipid microspheres 1.1 mg/mL 1.3 mL injection (DEFINITY) 1.3 mL INTRAVENOUS DIRECTED PRN metoprolol tartrate (short acting) 25 mg tab(s) (LOPRESSOR) 25 mg ORAL q 12 H NaCl 0.9% iv flush bag 20 mL INTRAVENOUS PRN HYDROmorphone (PF) 0.5 mg injection (DILAUDID) 0.5 mg INTRAVENOUS q 3 H PRN pantoprazole 40 mg injection (PROTONIX) 40 mg INTRAVENOUS BID AC (0600/1600) ascorbic acid (vitamin C) 500 mg tab(s) (VITAMIN C) 500 mg ORAL TID zinc oxide 20 % TOPICAL PRN lactobacillus rhamnosus 10 billion cell (CULTURELLE) capsule 1 capsule ORAL DAILY diphenoxylate-atropine 2.5-0.025 mg 2 tablet (LOMOTIL) 2 tablet ORAL TID dextrose 5% in NaCl 0.9% with KCl 20 mEq/L iv infusion 75 mL/hr INTRAVENOUS CONTINUOUS iv contrast (radiology procedure) INTRAVENOUS DIRECTED PRN piperacillin-tazobactam iv piggyback 3.375 g in dextrose (iso-osmotic) 50 mL (ZOSYN) 3.375 g INTRAVENOUS q 6 H zinc oxide 20 % TOPICAL BID ALLERGIES Allergen Reactions Percocet [Oxycodone* Itching Objective PHYSICAL EXAM: BP 142/70 Pulse 79 Temp 36.4 ?C (97.5 ?F) (Oral) Resp 18 Ht 162.6 cm (5' 4") Wt 71.2 kg (156 lb 15.5 oz) SpO2 93% BMI 26.94 kg/m? General appearance: A/O female resting in bed, pleasant and cooperative. Respiratory: even and unlabored on 2L O2 NC. Cardiovascular: pedal/radial pulses palpated bilaterally, good cap refill noted to bilateral nailbeds. Extremities: Right middle finger, atypical wound. Pt stated that it intermittently bleeds without warning, she denies bumping it or other trauma. Xeroform and gauze applied. 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 DTI noted to left hip, hospital acquired, pt stated that she sleeps on her left side. allevyn placed. Heels and elbows intact bilaterally. Skin beneath O2 tubing also intact. Integumentary: MAD to buttocks, zinc already ordered, applied and allevyn replaced. DATA Labs: Hgl 6.9 Presenting wound information: Wound 06/16/22 1630 Moisture Coccyx (Active) Assessments 06/21/2022 9:57 AM Wound Image Site Assessment [place];Red (small open area noted) Allie-Wound Assessment [place];Intact Drainage Amount None Odor None Treatments Cleansed;Protective Barrier Ointment Dressing Foam- Adhesive Dressing Changed Changed Dressing Status Clean;Dry;Intact Active Orders Date Order Priority Status Authorizing Provider 06/21/22 1248 DRESSING CARE (SPECIFY) ([place]) Routine Active Fidel Carmen APRN.APPLICATIONS PROJECT MANAGER - Specify:: Apply allevyn foam to coccyx, peel down every shift to assess skin and to apply zinc oxide, change every 3 days or if soiled. 06/21/22 1248 zinc oxide 20 % Active Fidel Carmen APRN.APPLICATIONS PROJECT MANAGER Wound 06/21/22 0948 Atypical Wound Finger (Comment which one) Right (Active) Assessments 06/21/2022 9:48 AM Wound Image Site Assessment [place];White (shiney) Allie-Wound Assessment Intact Shape irregular Drainage Description Sanguineous (intermittent, per pt.) Drainage Amount None Odor None Treatments Cleansed Dressing Xeroform;Gauze Dr (more content not included)... Normal [facility] Hgb Bld-mCncon 06-21-2022 Hemoglobin (Bld) [Mass/Vol] 6.9 g/dL Low 11.5-15.5 [facility] Comment on above: Order Comment: Speci men Type: BLOOD SPECIMENOrdering Facility: [facility] Address: [address] [place], [place] [id number] Performed By: #### 3 [id number] #### [facility] CLIA [id number] [address] [place] [address] [place] OPERATIVE NOon 06-21-2022 OPERATIVE NO HNO ID: [id number] Author: Sim Elizabeth MD Service: Gastroenterology Author Type: Physician Type: Operative Report Filed: 06/21/2022 12:01 PM Note Text: OPERATIVE/PROCEDURE REPORT LOG ID: [id number] Surgery/Procedure Date: 06/21/2022 Incision/Procedure Start Time: 11:44 AM Incision Close/Procedure End Time: 11:49 AM Surgeon(s)/Proceduralis t(s) and Extractor Operator(s): Surgeon(s) and Role: * Sim Elizabeth MD No Additional Staff Procedure(s): Esophagogastroduodenosc opy (EGD) Anesthesia: MAC Brief History: 81yoF with anemia and melena Procedure Details: The patient was placed in the left lateral decubitus position. A bite block was placed and medications administered as above. The Olympus gastroscope was used to intubate the oropharynx and esophagus with ease. We proceeded down to the second part of the duodenum. Within the anterior duodenal bulb, there was a 1.5cm cratered ulcer with overlying hematin material that washed away; no visible vessel or active bleeding noted. 2nd portion of duodenum normal. Mild gastropathy throughout. Severe, LA Grade D esophagitis noted. DH at 38cm and SCJ at 34cm consistent with a hiatal hernia. Pre-Op/Pre-Procedure Diagnosis: Anemia, melena Post-Op/Post-Procedure Diagnosis: LA Grade D esophagitis Large, 1.5cm duodenal bulb ulcer without high risk stigmata Specimens: See above EBL: None Complications: None Recommendations: - Would continue with IV PPI BID for now - Ok to resume anticoagulation and we can monitor closely for signs of overt GIB - Ok for clear liquid diet and then advance as tolerated - Would recommend transfusing 1U PRBC today given soft BPs during procedure today (pre-procedural Hbg of 6.9) and anticipation of restarting anticoagulation - Please check for Hpylori serology and treat empirically if positive Sim Elizabeth MD SIGNATURE: Sim Elizabeth MD PATIENT NAME: Mel Castillo DATE: June 21, 2022 TIME: 11:53 AM PAGER/CONTACT #: [phone] Normal [facility] THERAPY NTon 06-21-2022 THERAPY NT HNO ID: [id number] Author: Miranda Burroughs PT Service: Physical Therapy Author Type: Physical Therapist Type: Therapy (PT/OT/Speech/Resp) Filed: 06/21/2022 10:12 AM Note Text: Physical Therapy Evaluation SERVICE DATE: 06/21/2022 SERVICE TIME: 0832 to 0855 ROOM: [place] [id number] Recommended Discharge Disposition: Subacute/SNF Recommended Discharge Disposition Due to: Patient requires daily, facility-based rehabilitation from at least one discipline due to:;ADL impairment resulting in caregiver dependence;decline in functional status requiring daily skilled care;ongoing intervention of multiple therapy disciplines PT 6 Clicks Score: 14 Precautions/Activity Restrictions: Fall Risk;Bed/Chair Alarm;Lines/Tubes/Drain s Current Hospital Course: A-fib with RVR in ED as well as cyanotic skin sL knee down; found to have an occulsion L superfical femoral a.; s/p venogram 06/16; developed GI bleed--being prepped for colonoscopy Reason for Hospital Admission: LLE pain and discoloration Relevant Past Medical History: + tobacco, A-fib, DVT with IVC filter Response to Therapy Interventions: Good participation in activities, Multiple ongoing medical issues, Pain, Low activity tolerance Continue skilled needs due to: Functional mobility/skill impairments, Safety concerns Physical Therapy Problem List: Decreased Activity Tolerance;Decreased Strength;Functional Mobility Impairment;Balance Impaired;Decreased Range Of Motion Treatment Interventions: Education;Joint Mobility;Strengthening; Functional Mobility Training;Balance Training Home Environment Patient Lives With: Self/Alone Assistance Available: PRN (someone can drive her to [employer]; someone drops off food as they are able) Entry To Home: Stairs;With Rail Number Of Stairs Into Home: 4 Tub/Shower Type: grab bars with built in seat Laundry: pt was able to complete Equipment Owned: Grab Bars-Shower Prior Functional Level: Required Assistance Assistance Required With: Meals;Transportation;Sh opping Prior Functional Level Comments: per pt hasn't been able to go to the grocery store in a while, someone has to take her to [employer], ambulates without AD, takes care of home just limited d/t pain Patient Report: c/o pain LLE but eager to mobilize CURRENT FUNCTIONAL STATUS: Most recent performance Current Functional Mobility Assist Level Additional Information Rolling Supine to Sit Minimal Assistance;Additional Information HOB elevated, using bed rail for support and needed assist to bring trunk into upright Sit to Supine Additional Information;Minimal Assistance HOB elevated and used bed rail for support Scooting Minimal Assistance;Additional Information instruct to use UEs and weight shift on hips to scoot along EOB Sit to Stand Minimal Assistance;Additional Information instruct in hand placement and safety Stand to Sit Bed to Chair Toilet/Commode Gait Moderate Assistance Gait Device: Hand Held Assist (and bed rail) Gait Distance (feet): couple side steps along EOB; antagic Stairs Curb Step Car Transfer Range of Motion: WFL Except (L knee ROM limited) Strength: WFL Except (would benefit from optimization) General Deviations/Observations : Jenni decreased;Flexed trunk posture;Antalgic gait;Step length decreased -HLM: 5: Standing (1 or more minutes) Learning/Educational Needs: Discharge Plan;Family Education/Training;Func tional Activities/Mobility;Maximus n of Care;Precautions;Safety Goals for Plan of Care: Patient /Caregiver Goals: Go To Rehab Transfer supine to/from sit with: Stand By Assistance Transfer sit to/from stand with: Stand By Assistance Ambulate with: Stand By Assistance Distance: 20'x2 Device: Wheeled Walker Transfer: steps bed to chair with SBA Goal: x15 reps bilat LE AROM exericses Rehab Potential: Good Patient will be discontinued from Physical Therapy when no further skilled needs are identified in this setting. PLAN: PT Frequency: 4 times per week (2-4) Plan of Care developed with: Patient TREATMENT INTERVENTIONS: Therapy Diagnosis: Reduced mobility-other;Muscle Weakness (generalized);Unsteadin ess on feet;Abnormalities of gait and mobility-other Interventions Provided: Evaluation;Therapeutic Activity (06052) $ Evaluation-Moderate (21994) Billed Units: 1 unit Therapeutic Activity (76797) Treatment Minutes: 8 $ Therapeutic Activity (92991) Billed Units: 1 unit Educated pt on role of PT in acute care Facilitated functional mobility including bed mobility, transfers and ambulation Instruct in safety with mobility--hand placement with transfers Discussed D/C options and POC/goals in acute setting vs. SNF Training AND education provided in: Bed mobility, Benefits of in-hospital mobility, Discharge planning, Disease specific education, Falls prevention, Home safety, Role of Physical Therapy, Sitting balance, Standing balance, Transfers The following therapeutic skills (more content not included)... Normal [facility] TYPE + SCREENon 06-21-2022 ABO AB Normal [facility] Comment on above: Order Comment: Speci men Type: BLOOD SPECIMEN Ordering Facility: [facility] Address: [address] [place] [phone] Performed By: #### T SCR #### [facility] CLIA [id number] [address] HISTORICAL AB SCR STATUS Negative Normal [facility] Comment on above: Order Comment: Speci men Type: BLOOD SPECIMEN Ordering Facility: [facility] Address: [address] [place] [address] Performed By: #### T SCR #### [facility] CLIA [id number] [address] Rh Nom (Bld) Positive Normal [facility] Comment on above: Order Comment: Speci men Type: BLOOD SPECIMEN Ordering Facility: [facility] Address: [address] [place] [address] Performed By: #### T SCR #### [facility] CLIA [id number] [address] TYPE AND SCREEN EXPIRATION 06/24/2022 23:59 Normal [facility] Comment on above: Order Comment: Speci men Type: BLOOD SPECIMEN Ordering Facility: [facility] Address: [address] [place] [address] Performed By: #### T SCR #### [facility] CLIA [id number] [address] ALLIED HEALTHon 06-20-2022 ALLIED [facility]ALTH HNO ID: [id number] Author: RT Tamica(R) Service: Radiology Author Type: Technologist Type: Allied Health Filed: 06/20/2022 3:15 PM Note Text: Radiology Service Progress Note DATE OF SERVICE: June 20, 2022 TIME: 3:15 PM PATIENT IDENTITY VERIFICATION COMPLETED USING TWO (2) STANDARD IDENTIFIERS: Name and Date of confirmed by patient verbally and Name and Date of confirmed by identification band. FALL SCREENING: Has the patient had 2 falls in the last year or 1 fall with injury or currently using an Ambulatory Assistive Device (Walker, Cane, Wheelchair, Crutches, etc.)? Inpatient: Screened on floor PATIENT GENDER DATA: Female. status: : No status: NO. PATIENT RELEVANT IMPLANT DATA REVIEWED: Not Applicable ALLERGIES: Reviewed and updated CONTRAST ALLERGY: NO. EXAM: CT -CONTRAST INDUCED NEPHROPATHY RISK FACTORS: Patient age > 60 years CREATININE: Creatinine Date Value Ref Range Status 06/20/2022 0.84 0.58 - 0.96 mg/dL Final 06/19/2022 0.94 0.58 - 0.96 mg/dL Final 06/18/2022 1.17 (H) 0.58 - 0.96 mg/dL Final Estimated Glomerular Filtration Rate Date Value Ref Range Status 06/20/2022 69 >=60 mL/min/1.73m? Final Comment: Estimated Glomerular Filtration Rate (eGFR) is calculated using the 2020 CKD-EPI creatinine equation. This equation utilizes serum creatinine, sex, and age as parameters. The creatinine assay has traceable calibration to isotope dilution-mass spectrometry. Refer to KDIGO guidelines for clinical interpretation. In patients with unstable renal function, e.g. those with acute kidney injury, the eGFR may not accurately reflect actual GFR. P.O.C.T. RESULTS: POC done: Yes, See Lab Tab June 20, 2022 TREATMENT: N/A PERIPHERAL IV DATA: Inpatient - refer to [facility] documentation RADIOLOGY DEPARTMENT: CT; Exam(s) Completed: Abdomen/Pelvis SIGNATURE: RT Tamica(R) PATIENT NAME: Mel Castillo DATE: June 20, 2022 TIME: 3:15 PM Normal [facility] Basic metabolic 2000 panelon 06-20-2022 Anion gap [Moles/Vol] 8 mmol/L Low 9-18 [facility] Comment on above: Order Comment: Speci men Type: BLOOD SPECIMENOrdering Facility: [facility] Address: [address] [place] [address] Performed By: #### 2 4321-2 ####[facility] LABORATORYCLIA [id number] [place] [address] [place] Calcium [Mass/Vol] 8.5 mg/dL Normal 8.5-10.2 [facility] Comment on above: Order Comment: Speci men Type: BLOOD SPECIMENOrdering Facility: [facility] Address: [address] [place] [address] Performed By: #### 2 4321-2 ####[facility] LABORATORYCLIA [id number] [place] [address] [place] Chloride [Moles/Vol] 106 mmol/L High 97-105 [facility] Comment on above: Order Comment: Speci men Type: BLOOD SPECIMENOrdering Facility: [facility] Address: [address] [place] [address] Performed By: #### 2 4321-2 ####[facility] LABORATORYCLIA [id number] [address] CO2 [Moles/Vol] 22 mmol/L Normal 22-30 [facility] Comment on above: Order Comment: Speci men Type: BLOOD SPECIMENOrdering Facility: [facility] Address: [address] [place] [address] Performed By: #### 2 4321-2 ####[facility] [id number] [address] Creatinine [Mass/Vol] 0.84 mg/dL Normal 0.58-0.96 [facility] Comment on above: Order Comment: Speci men Type: BLOOD SPECIMENOrdering Facility: [facility] Address: [address] [place] [address] Performed By: #### 2 4321-2 ####[facility] LABORATORYCLIA [id number] [address] ESTIMATED GLOMERULAR FILTRATION RATE 69 mL/min/1.73m??? Normal >=60 [facility] Comment on above: Order Comment: Speci men Type: BLOOD SPECIMENOrdering Facility: [facility] Address: [address] [place] [address] Result Comment: Isa mated Glomerular Filtration Rate (eGFR) is calculated using the 2020 CKD-EPI creatinine equation. This equation utilizes serum creatinine, sex, and age as parameters. The creatinine assay has traceable calibration to isotope dilution-mass spectrometry. Refer to KDIGO guidelines for clinical interpretation. In patients with unstable renal function, e.g. those with acute kidney injury, the eGFR may not accurately reflect actual GFR. Performed By: #### 2 4321-2 ####[facility] LABORATORYCLIA [id number] [place] [address] [place] Glucose [Mass/Vol] 92 mg/dL Normal 74-99 [facility] Comment on above: Order Comment: Speci men Type: BLOOD SPECIMENOrdering Facility: [facility] Address: [address] [place] [address] Result Comment: The [place] Diabetes [employer] (ADA) provides guidance for cutoff values for fasting glucose and random glucose. The ADA defines fasting as no caloric intake for at least 8 hours. Fasting plasma glucose results between 100 to 125 mg/dL indicate increased risk for diabetes (prediabetes). Fasting plasma glucose results greater than or equal to 126 mg/dL meet the criteria for diagnosis of diabetes. In the absence of unequivocal hyperglycemia, results should be confirmed by repeat testing. In a patient with classic symptoms of hyperglycemia or hyperglycemic crisis, random plasma glucose results greater than or equal to 200 mg/dL meet the criteria for diagnosis of diabetes. Reference: Standards of Medical Care in Diabetes 2016, [place] [employer] Association. Diabetes Care. 2016.39(Suppl 1). Performed By: #### 2 4321-2 ####[facility] LABORATORYCLIA [id number] [place] [address] [place] Potassium [Moles/Vol] 4.7 mmol/L Normal 3.7-5.1 [facility] Comment on above: Order Comment: Rhina men Type: BLOOD SPECIMENOrdering Facility: [facility] Address: [address] [place] [address] Performed By: #### 2 4321-2 ####[facility] LABORATORYCLIA [id number] [place] [address] [place] Sodium [Moles/Vol] 136 mmol/L Normal 136-144 [facility] Comment on above: Order Comment: Speci men Type: BLOOD SPECIMENOrdering Facility: [facility] Address: [address] [place] [address] Performed By: #### 2 4321-2 ####[facility] LABORATORYCLIA [id number] [place] [address] [place] Urea nitrogen [Mass/Vol] 16 mg/dL Normal 7-21 [facility] Comment on above: Order Comment: Speci men Type: BLOOD SPECIMENOrdering Facility: [facility] Address: [address] [address] Performed By: #### 2 4321-2 ####[facility] LABORATORYCLIA [id number] [address] CBC panel Auto (Bld)on 06-20 Erythrocyte distribution width (RBC) [Ratio] 15.9 % High 11.5-15.0 [facility] Comment on above: Order Comment: Speci men Type: BLOOD SPECIMENOrdering Facility: [facility] Address: [address] [place] [address] Performed By: #### 3 2355-0 #### [facility] CLIA [id number] [address] Hematocrit (Bld) [Volume fraction] 23.9 % Low 36.0-46.0 [facility] Comment on above: Order Comment: Speci men Type: BLOOD SPECIMENOrdering Facility: [facility] Address: [address] [place] [address] Performed By: #### 3 2355-0 #### [facility] CLIA [id number] [address] Hemoglobin (Bld) [Mass/Vol] 7.8 g/dL Low 11.5-15.5 [facility] Comment on above: Order Comment: Speci men Type: BLOOD SPECIMENOrdering Facility: [facility] Address: [address] [place] [address] Performed By: #### 3 2355-0 #### [employer] [facility] CLIA [id number] [address] MCH (RBC) [Entitic mass] 30.7 pg Normal 26.0-34.0 [facility] Comment on above: Order Comment: Speci men Type: BLOOD SPECIMENOrdering Facility: [facility] Address: [address] [place] [address] Performed By: #### 3 2355-0 #### [facility] CLIA [id number] [address] MCHC (RBC) [Mass/Vol] 32.6 g/dL Normal 30.5-36.0 [facility] Comment on above: Order Comment: Speci men Type: BLOOD SPECIMENOrdering Facility: [facility] Address: [address] [place] [address] Performed By: #### 3 2355-0 #### [facility] CLIA [id number] [address] MCV (RBC) [Entitic vol] 94.1 fL Normal 80.0-100.0 [facility] Comment on above: Order Comment: Speci men Type: BLOOD SPECIMENOrdering Facility: [facility] Address: [address] [place] [address] Performed By: #### 3 2355-0 #### [facility] CLIA [id number] [address] OF [facility] Nucleated RBC (Bld) [#/Vol] 0.09 10*3/uL High <0.01 [facility] Comment on above: Order Comment: Speci men Type: BLOOD SPECIMENOrdering Facility: [facility] Address: [address] [place] [address] Performed By: #### 3 2355-0 #### [facility] CLIA [id number] [address] OF [facility] Platelet mean volume (Bld) [Entitic vol] 9.8 fL Normal 9.0-12.7 [facility] Comment on above: Order Comment: Speci men Type: BLOOD SPECIMENOrdering Facility: [facility] Address: [address] [place] [address] Performed By: #### 3 2355-0 #### [facility] CLIA [id number] [address] [place] Platelets (Bld) [#/Vol] 233 10*3/uL Normal 150-400 [facility] Comment on above: Order Comment: Speci men Type: BLOOD SPECIMENOrdering Facility: [facility] Address: [address] [place] [address] Performed By: #### 3 2355-0 #### [facility] CLIA [id number] [address] [facility] RBC (Bld) [#/Vol] 2.54 10*6/uL Low 3.90-5.20 [facility] Comment on above: Order Comment: Speci men Type: BLOOD SPECIMENOrdering Facility: [facility] Address: [address] [address] Performed By: #### 3 2355-0 #### [facility] CLIA [id number] [address] WBC (Bld) [#/Vol] 9.90 10*3/uL Normal 3.70-11.00 [facility] Comment on above: Order Comment: Speci men Type: BLOOD SPECIMENOrdering Facility: [facility] Address: [address] [place] [address] Performed By: #### 3 2355-0 #### [facility] CLIA [id number] [address] CONSULTon 06-20-2022 CONSULT HNO ID: [id number] Author: Christine Edouard MD Service: ? Author Type: Physician Type: Consults Filed: 06/20/2022 8:25 PM Note Text: GASTROENTEROLOGY CONSULT HPI: Mel Serna Jose Alberto Castillo is a 81 year old female who developed an acute thrombus left leg requiring anticoagulants which resulted in melena and decline hemoglobin from 11.4 to 7.8. She denies a history of GI bleeding, melena,abdominal pain,or blood stool prior admission. Recalls lower endoscopy 5 to 10 yrs ago but can't recall findings. Takes motrin several times daily to control chronic headaches and suffers with occasional mid chest pain. Chronic smoker but quit last month. 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 PAST MEDICAL HISTORY Diagnosis Date Acute bacterial sialadenitis Chronic atrial fibrillation (HCC) GERD (gastroesophageal reflux disease) HTN (hypertension) Hypothyroidism PAST SURGICAL HISTORY Procedure Laterality Date DANDC, DIAG AND/OR THERAPEUTIC TOTAL ABDOM HYSTERECTOMY Current Facility-Administered Medications Medication Dose Route Frequency zinc oxide 20 % TOPICAL PRN lactobacillus rhamnosus 10 billion cell (CULTURELLE) capsule 1 capsule ORAL DAILY diphenoxylate-atropine 2.5-0.025 mg 2 tablet (LOMOTIL) 2 tablet ORAL TID dextrose 5% in NaCl 0.9% with KCl 20 mEq/L iv infusion 75 mL/hr INTRAVENOUS CONTINUOUS iv contrast (radiology procedure) INTRAVENOUS DIRECTED PRN piperacillin-tazobactam iv piggyback 3.375 g in dextrose (iso-osmotic) 50 mL (ZOSYN) 3.375 g INTRAVENOUS q 6 H pantoprazole 40 mg injection (PROTONIX) 40 mg INTRAVENOUS BID AC (0600/1600) ascorbic acid (vitamin C) 500 mg tab(s) (VITAMIN C) 500 mg ORAL TID HYDROmorphone (PF) 0.5 mg injection (DILAUDID) 0.5 mg INTRAVENOUS q 3 H PRN HYDROcodone 5 mg - acetaminophen 325 mg tablet (NORCO) 1-2 tablet ORAL q 6 H PRN acetaminophen 650 mg tab(s) (TYLENOL) 650 mg ORAL q 8 H perflutren lipid microspheres 1.1 mg/mL 1.3 mL injection (DEFINITY) 1.3 mL INTRAVENOUS DIRECTED PRN metoprolol tartrate (short acting) 25 mg tab(s) (LOPRESSOR) 25 mg ORAL q 12 H NaCl 0.9% iv flush bag 20 mL INTRAVENOUS PRN sodium chloride 0.9 % (flush) 3-5 mL (BD POSIFLUSH) 3-5 mL INTRAVENOUS q 12 H ALLERGIES Allergen Reactions Percocet [Oxycodone* Itching Family history reviewed. No history of colon cancer or IBD. Social History Tobacco Use Smoking status: Every Day Packs/day: 0.50 Years: 50.00 Pack years: 25.00 Types: Cigarettes Smokeless tobacco: Never Substance Use Topics Alcohol use: Not Currently Drug use: Never REVIEW OF SYSTEMS GASTROINTESTINAL: SEE ABOVE URINARY: No dark urine or hematuria unless documented above CARDIOVASCULAR: + chest pain NEUROLOGICAL: No new focal neuro deficits CONSTITUTIONAL: No weight loss or fever EYES: No scleral icterus EARS, NOSE AND THROAT: No deformities or abnormalities RESPIRATORY: No dyspnea PHYSICAL EXAMINATION: BP 116/65 Pulse 86 Temp (Src) 97.9 (Oral) Resp 19 Ht 5' 4" (1.63m) Wt 156 lb 15.5 oz (71.2kg) SpO2 95% BMI 26.93 kg/(m2). O2 Therapy: Nasal Cannula, Liters: 2 GENERAL APPEARANCE: Well appearing, alert, in no acute distress, well-hydrated, well nourished. SKIN: Skin color, texture, turgor normal, no suspicious rashes or lesions. EYES: Anicteric sclera. Pupils are equally round and reactive to light. Extraocular movements are intact. NECK: Supple, no adenopathy; thyroid symmetric, normal size, no bruits. LUNGS: No accessory muscle use, no cyanosis, no asymmetric calf swelling, no bony deformity. HEART: Normal JVP, no significant peripheral edema, no thrill ABDOMEN: Abdomen soft, non-tender, non distended. No masses, ascites or hepatosplenomegaly. EXTREMITIES: No deformities, edema, skin discoloration, clubbing or cyanosis. NEUROLOGIC: OX3, CN intact LABS: Lab tests reviewed. Hemoglobin (g/dL) Date Value 06/20/2022 7.0 Hematocrit (%) Date Value 06/20/2022 23.9 WBC (k/uL) Date Value 06/20/2022 9.90 Platelet Count (k/uL) Date Value 06/20/2022 233 Creatinine Date Value Ref Range Status 06/20/2022 0.84 0.58 - 0.96 mg/dL Final AST Date Value Ref Range Status 06/16/2022 13 13 - 35 U/L Final ALT Date Value Ref Range Status 06/16/2022 20 7 - 38 U/L Final Bilirubin, Total (mg/dL) Date Value 06/16/2022 0.3 WBC (k/uL) Date Value 06/20/2022 9.90 RBC (m/uL) Date Value 06/20/2022 2.54 (L) %DIG,%DBS No results found for: TSH IMAGING: Imaging including X-rays, Ultrasound, CT scans, MRI scans reviewed. No old endoscopy records found. Plan ASSESSMENT AND PLAN: 1. Acute GI bleed with heparinization History of chronic overuse motrin with chronic cigarette use pre disposing for PUD 2. 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 PAT with rapid response - controlled 4. GERD Since chronic anti coagulation needed woul (more content not included)... Normal [facility] CT ABD/PEL W IVCONon 022 CT ABD/PEL W IVCON * * *Final Report* * * DATE OF EXAM: Jun 20 2022 2:57PM [facility] 0530 - CT ABD/PEL W IVCON / PROCEDURE REASON: Peritonitis or perforation suspected * * * * Physician Interpretation * * * * EXAMINATION: CT ABDOMEN AND PELVIS WITH IV CONTRAST CT ABD/PEL W IVCON HISTORY: Peritonitis or perforation suspected TECHNIQUE: CT of the abdomen and pelvis was performed using standard technique, scanning from just above the dome of the diaphragm to the symphysis pubis. MQ: CTAP_3 Contrast: Contrast Media: IV administration of 100 ml of Visipaque 320 CT Radiation dose: Integrated Dose-length product (DLP) for this visit = 664 mGy*cm. CT Dose Reduction Employed: Automated exposure correction (AEC). COMPARISON: None. RESULT: Liver: Focal fatty infiltration adjacent to the falciform ligament. Biliary: No bile duct dilatation. Spleen: Benign calcified granulomas. No mass. No splenomegaly. Pancreas: No mass or duct dilation. Adrenals: No mass. Kidneys: Bilateral renal cortical scarring and small cysts. No enhancing mass, calculus or hydronephrosis. GI tract: No small or large bowel dilatation. There is diverticulosis. There is mural thickening in the proximal sigmoid region with pericolonic inflammatory changes and a trace amount of free fluid. No extraluminal gas or discrete abscess. The appendix is inconspicuous or absent. Lymph nodes: No abdominal or pelvic lymphadenopathy. Mesentery/Peritoneum: No ascites or mass. Retroperitoneum: No mass. Vasculature: - Abdominal aorta and iliac arteries: Atherosclerotic calcifications without aneurysm. - Celiac and SMA: Atherosclerotic calcifications at the origins. - Portal venous system (SMV, splenic vein, portal vein and branches): Patent. - Hepatic veins: Patent. * IVC filter. Pelvis: No mass, ascites or fluid collection. Bones/Soft Tissues: There is diffuse subcutaneous edema of the left flank extending into the thigh, continuing outside the field of view. _ Lower thorax: Consolidation and volume loss with bronchial wall thickening in both lower lobes and right middle lobe. Small bilateral pleural effusions, larger on the right. Quitline Counselor (topogram) images: No additional findings. IMPRESSION: Acute sigmoid diverticulitis. No evidence of perforation or diverticular abscess. Consolidation and volume loss with bronchial wall thickening in both lower lobes and right middle lobe. Small bilateral pleural effusions, larger on the right. Diffuse subcutaneous edema of the left flank extending into the thigh. Bilateral renal cortical scarring and small cysts. Atherosclerotic arterial and aortic calcifications. Manager Hris: DEVEN Transcribe Date/Time: Jun 20 2022 3:18P Dictated by : DI MAYES MD This examination was interpreted and the report reviewed and electronically signed by: DI MAYES MD on Jun 20 2022 3:24PM EST [id number] Normal [facility] Hgb Bld-mCncon 06-20-2022 Hemoglobin (Bld) [Mass/Vol] 7.0 g/dL Low 11.5-15.5 [facility] Comment on above: Order Comment: Specrobson mason Type: BLOOD SPECIMEN Ordering Facility[facility] Address: [address] [place] [address] Performed By: #### T SCR #### [facility] [place] [id number] [address] HEALTH 06-19-2022 ALLIED [facility]ALTH HNO ID: [id number] Author: Parul Ryan RN Service: Infection Prevention Author Type: ? Type: Allied Health Filed: 06/19/2022 5:49 PM Note Text: INFECTION PREVENTION NOTE Admission Date: 06/16/2022 Patient meets ?COVID Resolved? criteria and isolation has been discontinued as per CDC guidance. SIGNATURE: Parul Ryan RN PATIENT NAME: Mel Castillo DATE: June 19, 2022 TIME: 5:49 PM PAGER/CONTACT #: Infection Prevention, [id number] Infection Prevention after hours/weekend pager: [phone] Normal [facility] Basic metabolic 2000 panelon 06-19-2022 Anion gap [Moles/Vol] 5 mmol/L Low 9-18 [facility] Comment on above: Order Comment: Specrobson mason Type: BLOOD SPECIMENOrdering Facility: [facility] Address: [address] [place] [address] Performed By: #### 3 2355-0 #### [facility] CLIA [id number] [address] Calcium [Mass/Vol] 8.1 mg/dL Low 8.5-10.2 [facility] Comment on above: Order Comment: Speci men Type: BLOOD SPECIMENOrdering Facility: [facility] Address: [address] [place] [address] Performed By: #### 3 2355-0 #### [facility] CLIA [id number] [address] [place] Chloride [Moles/Vol] 105 mmol/L Normal 97-105 [facility] Comment on above: Order Comment: Speci men Type: BLOOD SPECIMENOrdering Facility: [facility] Address: [address] [place] [address] Performed By: #### 3 2355-0 #### [facility] CLIA [id number] [address] CO2 [Moles/Vol] 23 mmol/L Normal 22-30 [facility] Comment on above: Order Comment: Speci men Type: BLOOD SPECIMENOrdering Facility: [facility] Address: [address] [place] [address] Performed By: #### 3 2355-0 #### [facility] CLIA [id number] [address] Creatinine [Mass/Vol] 0.94 mg/dL Normal 0.58-0.96 [facility] Comment on above: Order Comment: Speci men Type: BLOOD SPECIMENOrdering Facility: [facility] Address: [address] [place] [address] Performed By: #### 3 2355-0 #### [facility] CLIA [id number] [address] ESTIMATED GLOMERULAR FILTRATION RATE 61 mL/min/1.73m??? Normal >=60 [facility] Comment on above: Order Comment: Speci men Type: BLOOD SPECIMENOrdering Facility: [facility] Address: [address] [address] Result Comment: Isa mated Glomerular Filtration Rate (eGFR) is calculated using the 2020 CKD-EPI creatinine equation. This equation utilizes serum creatinine, sex, and age as parameters. The creatinine assay has traceable calibration to isotope dilution-mass spectrometry. Refer to KDIGO guidelines for clinical interpretation. In patients with unstable renal function, e.g. those with acute kidney injury, the eGFR may not accurately reflect actual GFR. Performed By: #### 3 2355-0 #### [facility] CLIA [id number] [address] [place] [address] [place] Glucose [Mass/Vol] 115 mg/dL High 74-99 [facility] Comment on above: Order Comment: Rhina mason Type: BLOOD SPECIMENOrdering Facility: [facility] Address: [address] [address] Result Comment: The [place] [employer] (ADA) provides guidance for cutoff values for fasting glucose and random glucose. The ADA defines fasting as no caloric intake for at least 8 hours. Fasting plasma glucose results between 100 to 125 mg/dL indicate increased risk for diabetes (prediabetes). Fasting plasma glucose results greater than or equal to 126 mg/dL meet the criteria for diagnosis of diabetes. In the absence of unequivocal hyperglycemia, results should be confirmed by repeat testing. In a patient with classic symptoms of hyperglycemia or hyperglycemic crisis, random plasma glucose results greater than or equal to 200 mg/dL meet the criteria for diagnosis of diabetes. Reference: Standards of Medical Care in Diabetes 2016, [place] [employer]. Diabetes Care. 2016.39(Suppl 1). Performed By: #### 3 2355-0 #### [facility] CLIA [id number] 1 [place] [address] [place] Potassium [Moles/Vol] 4.4 mmol/L Normal 3.7-5.1 [facility] Comment on above: Order Comment: Rhina mason Type: BLOOD SPECIMENOrdering Facility: [facility] Address: [address] [address] Performed By: #### 3 2355-0 #### [facility] CLIA [id number] [address] Sodium [Moles/Vol] 133 mmol/L Low 136-144 [facility] Comment on above: Order Comment: Speci men Type: BLOOD SPECIMENOrdering Facility: [facility] Address: [address] [address] Performed By: #### 3 2355-0 #### [facility] CLIA [id number] [address] [place] Urea nitrogen [Mass/Vol] 22 mg/dL High 7-21 [facility] Comment on above: Order Comment: Speci men Type: BLOOD SPECIMENOrdering Facility: [facility] Address: [address] [address] Performed By: #### 3 2355-0 #### [facility] CLIA [id number] [address] STATES OF [facility] CBC panel Auto (Bld)on 06-19 Erythrocyte distribution width (RBC) [Ratio] 15.6 % High 11.5-15.0 [facility] Comment on above: Order Comment: Speci men Type: BLOOD SPECIMENOrdering Facility: [facility] Address: [address] [address] Performed By: #### 5 8410-2 ####[facility]ORATORYCLIA [id number] [address] STATES OF [facility] Hematocrit (Bld) [Volume fraction] 24.0 % Low 36.0-46.0 [facility] Comment on above: Order Comment: Speci men Type: BLOOD SPECIMENOrdering Facility: [facility] Address: [address] [address] Performed By: #### 5 8410-2 ####[facility]ATORYCLIA [id number] [address] [place] Hemoglobin (Bld) [Mass/Vol] 7.6 g/dL Low 11.5-15.5 [facility] Comment on above: Order Comment: Speci men Type: BLOOD SPECIMENOrdering Facility: [facility] Address: [address] [address] Performed By: #### 5 8410-2 ####[facility]ATORYCLIA [id number] [address] MCH (RBC) [Entitic mass] 29.9 pg Normal 26.0-34.0 [facility] Comment on above: Order Comment: Speci men Type: BLOOD SPECIMENOrdering Facility: [facility] Address: [address] [place] [address] Performed By: #### 5 8410-2 ####[facility]ORATORYCLIA [id number] [address] MCHC (RBC) [Mass/Vol] 31.7 g/dL Normal 30.5-36.0 [facility] Comment on above: Order Comment: Speci men Type: BLOOD SPECIMENOrdering Facility: [facility] Address: [address] [place] [address] Performed By: #### 5 8410-2 ####[facility]ORATORYCLIA [id number] [address] MCV (RBC) [Entitic vol] 94.5 fL Normal 80.0-100.0 [facility] Comment on above: Order Comment: Speci men Type: BLOOD SPECIMENOrdering Facility: [facility] Address: [address] [place] [address] Performed By: #### 5 8410-2 ####[facility]ATORYCLIA [id number] [address] Nucleated RBC (Bld) [#/Vol] 0.04 10*3/uL High <0.01 [facility] Comment on above: Order Comment: Speci men Type: BLOOD SPECIMENOrdering Facility: [facility] Address: [address] [place] [address] Performed By: #### 5 8410-2 ####[facility]ATORYCLIA [id number] [address] Platelet mean volume (Bld) [Entitic vol] 10.0 fL Normal 9.0-12.7 [facility] Comment on above: Order Comment: Speci men Type: BLOOD SPECIMENOrdering Facility: [facility] Address: [address] [place] [address] Performed By: #### 5 8410-2 ####[facility]ATORYCLIA [id number] [address] [place] Platelets (Bld) [#/Vol] 219 10*3/uL Normal 150-400 [facility] Comment on above: Order Comment: Speci men Type: BLOOD SPECIMENOrdering Facility: [facility] Address: [address] [address] Performed By: #### 5 8410-2 ####[facility]ATORYCLIA [id number] [address] [place] RBC (Bld) [#/Vol] 2.54 10*6/uL Low 3.90-5.20 [facility] Comment on above: Order Comment: Speci men Type: BLOOD SPECIMENOrdering Facility: [facility] Address: [address] [address] Performed By: #### 5 8410-2 ####[facility]ATORYCLIA [id number] [address] OF [facility] WBC (Bld) [#/Vol] 8.55 10*3/uL Normal 3.70-11.00 [facility] Comment on above: Order Comment: Speci men Type: BLOOD SPECIMENOrdering Facility: [facility] Address: [address] [place] [address] Performed By: #### 5 8410-2 ####[facility]ATORYCLIA [id number] [address] [place] Hemoccult Stl Ql IAon 2021 Lower GI hemoglobin IA Ql (Stl) Positive Abnormal Negative [facility] Comment on above: Order Comment: Speci men Type: BLOOD SPECIMEN [facility] Address: [address] [place] [address] Performed By: #### T SCR #### [facility] CLIA [id number] [address] [place] Hgb Bld-mCncon 06-19-2022 Hemoglobin (Bld) [Mass/Vol] 7.6 g/dL Low 11.5-15.5 [facility] Comment on above: Order Comment: Speci men Type: BLOOD SPECIMENOrdering Facility: [facility] Address: [address] [place] [address] Performed By: #### 7 18-7 ####[facility]ATORYCLIA [id number] [address] [place] Magnesium SerPl-mCncon 06-19 Magnesium [Mass/Vol] 1.9 mg/dL Normal 1.7-2.3 [facility] Comment on above: Order Comment: Speci men Type: BLOOD SPECIMENOrdering Facility: [facility] Address: [address] [place] [address] Performed By: #### 3 2355-0 #### [facility] CLIA [id number] [address] [place] OPERATIVE NOon 06-19-2022 OPERATIVE NO HNO ID: [id number] Author: Frida Rodriguez MD Service: Vascular Surgery Author Type: Physician Type: Operative Report Filed: 06/19/2022 2:59 PM Note Text: [facility] - Operative Report MEL GUADARRAMA : 1940 AGE: 81. SEX: F PATIENT TYPE: I HOSP SVC: ICU LOCATION: [facility] ATTENDING PHYSICIAN: DWAYNE ZAIDI CSN NUMBER: [id number] DATE OF SURGERY/PROCEDURE: 06/16/2022 INCISION/PROCEDURE START TIME: 5:01 PM INCISION CLOSE/PROCEDURE END TIME: 6:58 PM PREOPERATIVE DIAGNOSIS: Left lower extremity deep vein thrombosis. POSTOPERATIVE DIAGNOSIS: Left lower extremity deep vein thrombosis. SURGEON: Frida Rodriguez MD [employer]IE[employer]RARIAN EXTENSION DEPARTMENT: Resident, Emanuel Hull SURGERY/PROCEDURE: Venogram with intravascular ultrasound. ANESTHESIA: General. DESCRIPTION OF PROCEDURE: Patient was seen in the preoperative area where risks and benefits of the procedure were reviewed with the patient. She was brought to the operating room where general anesthesia was induced. She was placed in a prone position. She was then prepped and draped in sterile fashion. Ultrasound guidance was used to identify the patient's left popliteal vein. This was accessed with a micropuncture needle and serially upsized to a 5-Cameroonian sheath. A venogram was then performed, which showed thrombus within the patient's left femoral vein including the common femoral vein. 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 Some collaterals were noted as well. The patient had a known existing IVC filter. There was flow through the filter noted indicating that the filter itself was not significantly thrombosed. At this time, the sheath was upsized to an 8-Cameroonian sheath. An intravascular ultrasound was performed. This showed again chronic thrombus throughout the iliac system as well as evidence of fresh thrombus in the femoral system. Multiple attempts were made at this point to upsize to a larger sheath, so that thrombectomy could be performed. However, the patient's veins were not of adequate size for this size sheath. Therefore, since the thrombus was thought to be primarily chronic within the iliac vein, the sheath was then pulled in and hemostasis was achieved by manual pressure. Patient tolerated the procedure well. She will be sent to the intensive care unit for further monitoring. Frida Rodriguez MD LM:[id number] /[id number] Normal [facility] Phosphate SerPl-mCncon 06-19 Phosphate [Mass/Vol] 2.4 mg/dL Low 2.7-4.8 [facility] Comment on above: Order Comment: Speci men Type: BLOOD SPECIMENOrdering Facility: [facility] Address: [facility] [place] [place] [address] Performed By: #### 3 2355-0 #### [facility] CLIA [id number] 1 [place] [address] [place] aPTT PPPon 06-19-2022 aPTT Coag (PPP) [Time] 46.9 s High 23.0-32.4 [facility] Comment on above: Order Comment: Speci men Type: BLOOD SPECIMENOrdering Facility: [facility] Address: [address] [place] [address] Performed By: #### 1 4979-9 ####[facility]ATORYCLIA [id number] [place] [address] [place] aPTT Coag (PPP) [Time] 83.8 s High 23.0-32.4 [facility] Comment on above: Order Comment: Speci men Type: BLOOD SPECIMENOrdering Facility: [facility] Address: [address] [place] [address] Performed By: #### 3 2355-0 #### [facility] CLIA [id number] [address] [place] Basic metabolic 2000 panelon 06-18-2022 Anion gap [Moles/Vol] 10 mmol/L Normal 9-18 [facility] Comment on above: Order Comment: Speci men Type: BLOOD SPECIMENOrdering Facility: [facility] Address: [address] [place] [address] Performed By: #### 2 4321-2, 93124-3, , 2776-07 ####[facility]ATORYCLIA [id number] [place] [address] [place] Calcium [Mass/Vol] 8.0 mg/dL Low 8.5-10.2 [facility] Comment on above: Order Comment: Speci men Type: BLOOD SPECIMENOrdering Facility: [facility] Address: [address] [place] [address] Performed By: #### 2 4321-2, 32157-1, , 2776-07 ####[facility]ATORYCLIA [id number] [address] [place] Chloride [Moles/Vol] 102 mmol/L Normal 97-105 [facility] Comment on above: Order Comment: Speci men Type: BLOOD SPECIMENOrdering Facility: [facility] Address: [address] [place] [address] Performed By: #### 2 4321-2, 35947-6, , 2776-07 ####[facility] [id number] [address] STATES OF [facility] CO2 [Moles/Vol] 21 mmol/L Low 22-30 [facility] Comment on above: Order Comment: Speci men Type: BLOOD SPECIMENOrdering Facility: [facility] Address: [address] [place] [address] Performed By: #### 2 4321-2, 77232-1, , 2776-07 ####[facility] [id number] [address] OF [facility] Creatinine [Mass/Vol] 1.17 mg/dL High 0.58-0.96 [facility] Comment on above: Order Comment: Speci men Type: BLOOD SPECIMENOrdering Facility: [facility] Address: [address] [place] [address] Performed By: #### 2 4321-2, 64921-1, , 2776-07 ####[facility] [id number] [address] OF [facility] ESTIMATED GLOMERULAR FILTRATION RATE 47 mL/min/1.73m??? Low >=60 [facility] Comment on above: Order Comment: Speci men Type: BLOOD SPECIMENOrdering Facility: [facility] Address: [address] [place] [address] Result Comment: Isa mated Glomerular Filtration Rate (eGFR) is calculated using the 2020 CKD-EPI creatinine equation. This equation utilizes serum creatinine, sex, and age as parameters. The creatinine assay has traceable calibration to isotope dilution-mass spectrometry. Refer to KDIGO guidelines for clinical interpretation. In patients with unstable renal function, e.g. those with acute kidney injury, the eGFR may not accurately reflect actual GFR. Performed By: #### 2 4321-2, 89750-3, , 2776-07 ####[facility]ATORYCLIA [id number] [place] [address] [place] Glucose [Mass/Vol] 112 mg/dL High 74-99 [facility] Comment on above: Order Comment: Speci men Type: BLOOD SPECIMENOrdering Facility: [facility] Address: [address] [place] [address] Result Comment: The [place] Diabetes Association (ADA) provides guidance for cutoff values for fasting glucose and random glucose. The ADA defines fasting as no caloric intake for at least 8 hours. Fasting plasma glucose results between 100 to 125 mg/dL indicate increased risk for diabetes (prediabetes). Fasting plasma glucose results greater than or equal to 126 mg/dL meet the criteria for diagnosis of diabetes. In the absence of unequivocal hyperglycemia, results should be confirmed by repeat testing. In a patient with classic symptoms of hyperglycemia or hyperglycemic crisis, random plasma glucose results greater than or equal to 200 mg/dL meet the criteria for diagnosis of diabetes. Reference: Standards of Medical Care in Diabetes 2016, [place] [employer]. Diabetes Care. 2016.39(Suppl 1). Performed By: #### 2 4321-2, 86881-7, , 2776-07 ####[facility]ORYCLIA [id number] [place] [address] [place] Potassium [Moles/Vol] 4.4 mmol/L Normal 3.7-5.1 [facility] Comment on above: Order Comment: Rhina isabella Type: BLOOD SPECIMENOrdering Facility: [facility] Address: [address] [place] [address] Performed By: #### 2 4321-2, 52293-9, , 2776-07 ####[facility]ATORYCLIA [id number] [place] [address] [place] Sodium [Moles/Vol] 133 mmol/L Low 136-144 [facility] Comment on above: Order Comment: Samiri isabella Type: BLOOD SPECIMENOrdering Facility: [facility] Address: [address] [place] [address] Performed By: #### 2 4321-2, 18387-0, , 2776-07 ####[facility]ATORYCLIA [id number] [place] [address] [place] Urea nitrogen [Mass/Vol] 25 mg/dL High 7-21 [facility] Comment on above: Order Comment: Speci men Type: BLOOD SPECIMENOrdering Facility: [facility] Address: [address] [place] [address] Performed By: #### 2 4321-2, 12188-2, 80253-7, 2777-1 ####[facility]ATORYCLIA [id number] [address] [place] CBC panel Auto (Bld)on 06-18 Erythrocyte distribution width (RBC) [Ratio] 15.6 % High 11.5-15.0 [facility] Comment on above: Order Comment: Speci men Type: BLOOD SPECIMENOrdering Facility: [facility] Address: [address] [place] [address] Performed By: #### 5 8410-2 ####[facility]ATORYCLIA [id number] [address] [place] Hematocrit (Bld) [Volume fraction] 26.8 % Low 36.0-46.0 [facility] Comment on above: Order Comment: Speci men Type: BLOOD SPECIMENOrdering Facility: [facility] Address: [address] [place] [address] Performed By: #### 5 8410-2 ####[facility]ATORYCLIA [id number] [address] [place] Hemoglobin (Bld) [Mass/Vol] 8.5 g/dL Low 11.5-15.5 [facility] Comment on above: Order Comment: Speci men Type: BLOOD SPECIMENOrdering Facility: [facility] Address: [address] [place] [address] Performed By: #### 5 8410-2 ####[facility]ATORYCLIA [id number] [address] [place] MCH (RBC) [Entitic mass] 30.1 pg Normal 26.0-34.0 [facility] Comment on above: Order Comment: Speci men Type: BLOOD SPECIMENOrdering Facility: [facility] Address: [address] [address] Performed By: #### 5 8410-2 ####[facility]ATORYCLIA [id number] [address] MCHC (RBC) [Mass/Vol] 31.7 g/dL Normal 30.5-36.0 [facility] Comment on above: Order Comment: Speci men Type: BLOOD SPECIMENOrdering Facility: [facility] Address: [address] [place] [address] Performed By: #### 5 8410-2 ####[facility]ATORYCLIA [id number] [address] MCV (RBC) [Entitic vol] 95.0 fL Normal 80.0-100.0 [facility] Comment on above: Order Comment: Speci men Type: BLOOD SPECIMENOrdering Facility: [facility] Address: [address] [place] [address] Performed By: #### 5 8410-2 ####[facility]ATORYCLIA [id number] [address] Nucleated RBC (Bld) [#/Vol] 0.03 10*3/uL High <0.01 [facility] Comment on above: Order Comment: Speci men Type: BLOOD SPECIMENOrdering Facility: [facility] Address: [address] [place] [address] Performed By: #### 5 8410-2 ####[facility]ATORYCLIA [id number] [address] Platelet mean volume (Bld) [Entitic vol] 10.2 fL Normal 9.0-12.7 [facility] Comment on above: Order Comment: Speci men Type: BLOOD SPECIMENOrdering Facility: [facility] Address: [address] [place] [address] Performed By: #### 5 8410-2 ####[facility]ATORYCLIA [id number] [place] [address] [place] Platelets (Bld) [#/Vol] 234 10*3/uL Normal 150-400 [facility] Comment on above: Order Comment: Speci men Type: BLOOD SPECIMENOrdering Facility: [facility] Address: [address] [place] [address] Performed By: #### 5 8410-2 ####[facility]ATORYCLIA [id number] [place] [address] [facility] [place] RBC (Bld) [#/Vol] 2.82 10*6/uL Low 3.90-5.20 [facility] Comment on above: Order Comment: Speci men Type: BLOOD SPECIMENOrdering Facility: [facility] Address: [address] [place] [address] Performed By: #### 5 8410-2 ####[facility]ATORYCLIA [id number] [address] WBC (Bld) [#/Vol] 8.77 10*3/uL Normal 3.70-11.00 [facility] Comment on above: Order Comment: Speci men Type: BLOOD SPECIMENOrdering Facility: [facility] Address: [address] [place] [address] Performed By: #### 5 8410-2 ####[facility] LABORATORYCLIA [id number] [address] CONSULT PROGon 06-18-2022 CONSULT PROG HNO ID: [id number] Author: Jessica Colmenares APRN.APPLICATIONS PROJECT MANAGER Service: Cardiovascular Medicine Author Type: Nurse Practitioner Type: Consult Progress Note Filed: 06/18/2022 2:46 PM Note Text: The ECHO reviewed, EF 59%. No significant valvular abnormalities. Chart reviewed, no further recommendations. Thank you, Jessica Colmenares APRN.APPLICATIONS PROJECT MANAGER Normal [facility] CONSULT PROG HNO ID: [id number] Author: Cirilo Yip [facility] Service: Pharmacy Author Type: Pharmacist Type: Consult Progress Note Filed: 06/18/2022 12:02 PM Note Text: PHARMACY PROGRESS NOTE Patient Name: Mel Castillo Admission Date: 06/16/2022 Date of Consult: 06/18/2022 Time of Consult: 12:02 PM In accordance with the inpatient pharmacy consult agreement the following medication changes have been made: Renal dosing Discontinue Zosyn 4.5 q6h, change to Zosyn 4.5 q8h per renal dosing guidelines. Creatinine (mg/dL) Date Value 06/18/2022 1.17 (H) CrCl: 36 mL/min Pharmacy will continue to monitor patient for continued eligibility of these medication changes. Please call with any questions or concerns. SIGNATURE: Cirilo Yip [facility] DATE/TIME: 06/18/2022 12:02 PM [facility] CONSULT PROG HNO ID: [id number] Author: Nimo Arzola MD Service: General Surgery Author Type: Resident Type: Consult Progress Note Filed: 06/18/2022 9:11 AM Note Text: Attestation signed by Frida Rodriguez MD at 06/19/2022 2:09 PM Attending Note I personally saw and examined the patient 06/18/22. I reviewed the resident's note. I agree with the resident's assessment and plan unless otherwise noted. Signature: Frida Rodriguez MD Date: 06/19/2022 Time: 2:09 PM Vascular Surgery Progress Note SERVICE DATE: June 18, 2022 Vascular and Thoracic Service Pager: For questions or concerns Tue-Tue 6a-5p please page [phone]. After 5pm and on Weekends and Holidays, please page [phone] if in ICU or [phone] if on RNF. Subjective SUBJECTIVE: No acute events overnight. Patient endorses left leg pain and some swelling. Tolerating diet. Denies N/V/CP/SOB Diet: DIET REGULAR Objective OBJECTIVE: Vitals: Temp (24hrs), Av.6 ?C (97.8 ?F), Min:36.3 ?C (97.3 ?F), Max:36.7 ?C (98.1 ?F) BP 99/57 Pulse 78 Temp 36.7 ?C (98.1 ?F) (Oral) Resp 18 Ht 162.6 cm (5' 4") Wt 71.2 kg (156 lb 15.5 oz) SpO2 97% BMI 26.94 kg/m? O2 Therapy: Room Air IANDO: Date 06/17/22 0700 - 06/18/22 0659 06/18/22 0700 - 06/19/22 0659 Shift 8920-7101 1255-0340 9976-3092 24 Hour Total 2782-3846 6185-9065 3137-7532 24 Hour Total INTAKE IV 350 15 365 Volume (mL) 15 15 Volume (mL) (lactated ringers iv infusion) 350 350 Shift Total 350 15 365 OUTPUT Urine 0328 774 6674 Void (ml) 1450 1450 Output ( External Collection Device 06/16/22 2331) 400 400 # of BMs Stool Incontinence 1 x 1 x Number of BMs 1 x 1 x Shift Total 1891 710 4562 Weight (kg) 71.2 71.2 71.2 71.2 71.2 71.2 71.2 71.2 MEDICATIONS Current Facility-Administered Medications Medication Dose Route Frequency HYDROcodone 5 mg - acetaminophen 325 mg tablet (NORCO) 1-2 tablet ORAL q 6 H PRN acetaminophen 650 mg tab(s) (TYLENOL) 650 mg ORAL q 8 H perflutren lipid microspheres 1.1 mg/mL 1.3 mL injection (DEFINITY) 1.3 mL INTRAVENOUS DIRECTED PRN metoprolol tartrate (short acting) 25 mg tab(s) (LOPRESSOR) 25 mg ORAL q 12 H piperacillin-tazobactam 4.5 g in D5W 100 mL Vial-Bag (ZOSYN) 4.5 g INTRAVENOUS q 6 H NaCl 0.9% iv flush bag 20 mL INTRAVENOUS PRN heparin iv infusion 25,000 units in NaCl 0.45% 250 mL STANDARD NOMOGRAM 0-3,000 Units/hr INTRAVENOUS CONTINUOUS And heparin RATE CHANGE bolus 1,000-10,000 Units for subtherapeutic PTTAC results 1,000-10,000 Units INTRAVENOUS PRN HYDROmorphone (PF) 0.5 mg injection (DILAUDID) 0.5 mg INTRAVENOUS q 3 H PRN sodium chloride 0.9 % (flush) 3-5 mL (BD POSIFLUSH) 3-5 mL INTRAVENOUS q 12 H Labs: Recent Labs 06/18/22 0416 06/17/22 0510 06/16/22 0826 06/16/22 0818 06/16/22 0458 06/16/22 0341 06/16/22 0304 0000 NA 133* 137 -- -- -- 139 -- < > K 4.4 4.3 -- -- -- 4.4 -- < > CHLOR 102 107* -- -- -- 104 -- < > CO2 21* 21* -- -- -- 18* -- < > BUN 25* 27* -- -- -- 35* -- < > CREAT 1.17* 0.99* -- -- -- 1.14* -- < > GLUC 112* 84 -- -- -- 122* -- < > ANION 10 9 -- -- -- 17 -- < > CA 8.0* 7.9* -- -- -- 9.1 -- < > MG 2.1 2.1 -- -- -- 2.4* -- < > P 3.3 3.8 -- -- -- -- -- -- ALB -- -- -- -- -- 3.2* -- -- AST -- -- -- -- -- 13 -- -- ALT -- -- -- -- -- 20 -- -- ALKPHOS -- -- -- -- -- 111 -- -- TBILI -- -- -- -- -- 0.3 -- -- WBC 8.77 8.61 < > -- -- 15.82* -- -- HB 8.5* 8.5* < > -- -- 11.4* -- -- HCT 26.8* 26.6* < > -- -- 35.3* -- -- PLT 234 223 < > -- -- 373 -- -- LACT -- -- -- 1.8 2.3* -- -- -- INR -- -- -- -- -- -- 1.1 -- < > = values in this interval not displayed. Physical Exam: GENERAL: No distress, Alert NEURO: AANDOx3, CN II-XII grossly intact HEENT: Normocephalic, atraumatic LUNGS: Equal chest rise, Unlabored breathing O2 Therapy: Room Air CARDIAC: Regular rate as above, warm extremities ABDOMEN: Soft, non-tender, non-distended. No rebound or guarding. EXTREMITIES: LLE with mild swelling/pitting edema . Two stitches in posterior knee. Hemostatic. LLE wrapped with bandage from thigh to ankle. PULSES: Dopplerable DP/PT in left lower extremity. 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 Normal [facility] Lipid 1996 panelon 2 Cholesterol [Mass/Vol] 139 mg/dL Normal <200 [facility] Comment on above: Order Comment: Speci men Type: BLOOD SPECIMENOrdering Facility: [facility] Address: [address] [place] [phone] Result Comment: <200 mg/dL, Desirable 200-239 mg/dL, Borderline high >239 mg/dL, High Performed By: #### 2 4321-2, 69422-1, , 2776-07 ####[facility] LABORATORYCLIA [id number] [address] Cholesterol in HDL [Mass/Vol] 56 mg/dL Normal >39 [facility] Comment on above: Order Comment: Speci men Type: BLOOD SPECIMENOrdering Facility: [facility] Address: [address] [address] Result Comment: 40-5 9 mg/dL, Acceptable >59 mg/dL, High: Negative risk factor for coronary heart disease <40 mg/dL, Low: Positive risk factor for coronary heart disease Performed By: #### 2 4321-2, 25095-2, , 2776-07 ####[facility] [id number] [address] Cholesterol in LDL [Mass/Vol] 64 mg/dL Normal <100 [facility] Comment on above: Order Comment: [facility] Type: BLOOD SPECIMENOrdering Facility: [facility] Address: [address] [place] [address] Result Comment: <100 mg/dL, Optimal 100-129 mg/dL, Near optimal/above optimal 130-159 mg/dL, Borderline high 160-189 mg/dL, High >189 mg/dL, Very high Secondary prevention optimal LDL Cholesterol levels are recommended to be < 70 mg/dL Performed By: #### 2 4321-2, 72642-5, , 2776-07 ####[facility] LABORATORYCLIA [id number] [address] Cholesterol in LDL/Cholesterol in HDL [Mass ratio] 1.14 {ratio} Normal <2.54 [facility] Comment on above: Order Comment: Samiri isabella Type: BLOOD SPECIMENOrdering Facility: [facility] Address: [address] [address] Result Comment: Refe rence: 1. National Cholesterol Education Program ATP III Guideline At-A-Glance Quick Desk Reference: National Heart, Lung, and Blood [place]. National Institutes of Health. 2001: NIH Publication No. 01-3305. 2. An International Atherosclerosis Society position paper: global recommendations for the management of dyslipidemia: executive summary, Atherosclerosis. 2014: 232(2):410-413. Performed By: #### 2 4321-2, 39327-7, , 2776-07 ####[facility] LABORATORYCLIA [id number] [address] [place] Cholesterol in VLDL [Mass/Vol] 19 mg/dL Normal <30 [facility] Comment on above: Order Comment: Speci men Type: BLOOD SPECIMENOrdering Facility: [facility] Address: [address] [place] [address] Performed By: #### 2 1-2, 36849-1, , 2776-07 ####[facility] LABORATORYCLIA [id number] [address] [place] Cholesterol non HDL [Mass/Vol] 83 mg/dL Normal <130 [facility] Comment on above: Order Comment: Speci men Type: BLOOD SPECIMENOrdering Facility: [facility] Address: [address] [place] [address] Result Comment: <130 mg/dL, Optimal 130-159 mg/dL, Near optimal/above optimal 160-189 mg/dL, Borderline high 190-219 mg/dL, High >219 mg/dL, Very high Secondary prevention optimal non HDL Cholesterol levels are recommended to be <100 mg/dL Performed By: #### 2 1-2, 75134-6, , 2776-07 ####[facility] LABORATORYCLIA [id number] [address] [place] Cholesterol.total/Pastora sterol in HDL [Mass ratio] 2.48 {ratio} Normal <5.10 [facility] Comment on above: Order Comment: Speci men Type: BLOOD SPECIMENOrdering Facility: [facility] Address: [address] [place] [address] Performed By: #### 2 4321-2, 15363-1, , 2776-07 ####[facility] LABORATORYCLIA [id number] [address] [place] FASTING TIME 8 hrs Normal [facility] Comment on above: Order Comment: Speci men Type: BLOOD SPECIMENOrdering Facility: [facility] Address: [address] [place] [address] Performed By: #### 2 4321-2, 00203-1, , 2776-07 ####[facility] LABORATORYCLIA [id number] [place] [address] [place] Triglyceride [Mass/Vol] 93 mg/dL Normal <150 [facility] Comment on above: Order Comment: Speci men Type: BLOOD SPECIMENOrdering Facility: [facility] Address: [address] [place] [address] Result Comment: <150 mg/dL, Normal 150-199 mg/dL, Borderline high 200-499 mg/dL, High >499 mg/dL, Very high Performed By: #### 2 4321-2, 49866-0, , 2776-07 ####[facility] LABORATORYCLIA [id number] [place] [address] [place] Magnesium SerPl-mCncon 06-18 Magnesium [Mass/Vol] 2.1 mg/dL Normal 1.7-2.3 [facility] Comment on above: Order Comment: Speci men Type: BLOOD SPECIMENOrdering Facility: [facility] Address: [address] [place] [address] Performed By: #### 2 4321-2, 76696-6, , 2776-07 ####[facility] LABORATORYCLIA [id number] [place] [address] [place] Phosphate SerPl-mCncon 06-18 Phosphate [Mass/Vol] 3.3 mg/dL Normal 2.7-4.8 [facility] Comment on above: Order Comment: Speci men Type: BLOOD SPECIMENOrdering Facility: [facility] Address: [address] [place] [address] Performed By: #### 2 4321-2, 09404-9, 99498-8, 2777-1 ####[facility] LABORATORYCLIA [id number] [address] aPTT PPPon 06-18-2022 aPTT Coag (PPP) [Time] 37.2 s High 23.0-32.4 [facility] Comment on above: Order Comment: Speci men Type: BLOOD SPECIMENOrdering Facility: [facility] Address: [address] [place] [address] Performed By: #### 9 4500-6 #### [facility] CLIA [id number] [address] [place] [address] aPTT Coag (PPP) [Time] 58.8 s High 23.0-32.4 [facility] Comment on above: Order Comment: Speci men Type: BLOOD SPECIMENOrdering Facility: [facility] Address: [address] [place] [address] Performed By: #### 1 4979-9 ####[facility] LABORATORYCLIA [id number] [address] aPTT Coag (PPP) [Time] 127.7 s High 23.0-32.4 [facility] Comment on above: Order Comment: Speci men Type: BLOOD SPECIMEN [facility] Address: [address] [place] [address] Performed By: #### T SCR #### [facility] CLIA [id number] [address] [place] [address] ALLIED HEALTHon 06-17-2022 ALLIED HEALTH HNO ID: [id number] Author: RT [place](R) Service: Radiology Author Type: Technologist Type: Allied Health Filed: 06/17/2022 9:30 AM Note Text: Radiology Service Progress Note PATIENT NAME: Mel Castillo DATE OF SERVICE: June 17, 2022 TIME: 9:30 AM PATIENT IDENTITY VERIFICATION COMPLETED USING TWO (2) IDENTIFIERS: Name and Date of confirmed by patient verbally and Name and Date of confirmed by identification band. FALL SCREENING: Has the patient had 2 falls in the last year or 1 fall with injury or currently using an Ambulatory Assistive Device (Walker, Cane, Wheelchair, Crutches, etc.)? Inpatient: Screened on floor PATIENT GENDER DATA: Female. status: : No status: NO. PATIENT RELEVANT IMPLANT DATA REVIEWED: Not Applicable RADIOLOGY DEPARTMENT: General X-ray: Exam(s) Completed: Chest X-Ray PERIPHERAL IV DATA: Not applicable SIGNED BY: RT [place](R) June 17, 2022 9:30 AM [facility] ALLIED HEALTH HNO ID: [id number] Author: Jeremías Bragg TAWNY Service: Infection Prevention Author Type: ? Type: Allied Health Filed: 06/17/2022 8:27 AM Note Text: ISOLATION NOTE Admission Date: 06/16/2022 Type of Isolation Recommended: Contact and Droplet Precautions Plus Eyewear (Cranberry Isolation Sign) Indication: COVID-19 Maintain Contact/Droplet and Eyewear isolation signage Remain in private room or cohort when deemed appropriate Don an N95 (or PAPR) prior to entering the patient room Avoid entering room during aerosol generating procedure when possible Restrict room access to essential personnel only Contact Infection Prevention prior to discontinuing precautions when criteria are met Limit transport and movement of the patient to medically necessary purposes Date Isolation Initiated: 06/17/2022 Anticipated Duration of Isolation: In consultation with Infection Prevention Type and Date of Positive Test(s): Positive for COVID19 in specimen collected 06/16/2022 SIGNATURE: Jeremías Bragg II PATIENT NAME: Mel Castillo DATE: June 17, 2022 TIME: 8:27 AM PAGER/CONTACT #: Infection Prevention, [id number] Infection Prevention after hours/weekend pager: [phone] [facility] ANES POSTPROC EVALon 022 ANES POSTPROC EVAL HNO ID: [id number] Author: Larry Moss MD Service: Anesthesiology Author Type: Anesthesiologist Type: Anesthesia Postprocedure Evaluation Filed: 06/17/2022 6:51 AM Note Text: POST ANESTHESIA EVALUATION NOTE : 1940 Procedure Summary Date: 06/16/22 Room / Location: [place] OR 10 / [place] OR Anesthesia Start: 1609 Anesthesia Stop: 1934 Procedure: TRANSCATHETER THERAPY VENOUS INFUSION FOR THROMBOLYSIS W/RADIOLOGICAL SUPERVISION/INTERPRETAT ION INITIAL TREATMENT DAY: VENOGRAM WITH IVUS (Left: Leg lower ) 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 Post Anesthesia Patient Status Patient Evaluation: ICU. PACU/ICU Patient Condition: stable. Anticipated Disposition: ICU planned admission. Neurological Status: aware and responsive. Pulmonary Status: breathing comfortably on supplemental oxygen Airway Control: returned to baseline unsupported. Cardiovascular Status: stable. Pain Management: clinically adequate Postoperative Hydration: acceptable. Intraoperative Events: no significant anesthesia events Recommendation: continue current plan of care. Anesthesia Observations No Documentation SIGNATURE: Larry Moss MD PATIENT NAME: Mel Castillo DATE: June 17, 2022 TIME: 6:50 AM CSN: [id number] Normal [facility] Basic metabolic 2000 panelon 06-17-2022 Anion gap [Moles/Vol] 9 mmol/L Normal 9-18 [facility] Comment on above: Order Comment: Speci men Type: BLOOD SPECIMENOrdering Facility: [facility] Address: [address] [place] [phone] Performed By: #### 2 4321-2, 46699-2, 2777-1 ####[facility] LABORATORYCLIA [id number] [place] [address] [place] Calcium [Mass/Vol] 7.9 mg/dL Low 8.5-10.2 [facility] Comment on above: Order Comment: Speci men Type: BLOOD SPECIMENOrdering Facility: [facility] Address: [address] [address] Performed By: #### 2 4321-2, , 2776-07 ####[facility] LABORATORYCLIA [id number] [place] [address] [place] Chloride [Moles/Vol] 107 mmol/L High 97-105 [facility] Comment on above: Order Comment: Speci men Type: BLOOD SPECIMENOrdering Facility: [facility] Address: [address] [place] [address] Performed By: #### 2 4321-2, , 2776-07 ####[facility] LABORATORYCLIA [id number] [place] [address] [place] CO2 [Moles/Vol] 21 mmol/L Low 22-30 [facility] Comment on above: Order Comment: Speci men Type: BLOOD SPECIMENOrdering Facility: [facility] Address: [address] [place] [address] Performed By: #### 2 4321-2, , 2776-07 ####[facility] LABORATORYCLIA [id number] [place] [address] [place] Creatinine [Mass/Vol] 0.99 mg/dL High 0.58-0.96 [facility] Comment on above: Order Comment: Speci men Type: BLOOD SPECIMENOrdering Facility: [facility] Address: [address] [place] [address] Performed By: #### 2 4321-2, , 2776-07 ####[facility] LABORATORYCLIA [id number] [address] [place] ESTIMATED GLOMERULAR FILTRATION RATE 57 mL/min/1.73m??? Low >=60 [facility] Comment on above: Order Comment: Speci men Type: BLOOD SPECIMENOrdering Facility: [facility] Address: [address] [place] [address] Result Comment: Isa mated Glomerular Filtration Rate (eGFR) is calculated using the 2020 CKD-EPI creatinine equation. This equation utilizes serum creatinine, sex, and age as parameters. The creatinine assay has traceable calibration to isotope dilution-mass spectrometry. Refer to KDIGO guidelines for clinical interpretation. In patients with unstable renal function, e.g. those with acute kidney injury, the eGFR may not accurately reflect actual GFR. Performed By: #### 2 4321-2, , 2776-07 ####[facility] LABORATORYCLIA [id number] [place] [address] [place] Glucose [Mass/Vol] 84 mg/dL Normal 74-99 [facility] Comment on above: Order Comment: Rhina mason Type: BLOOD SPECIMENOrdering Facility: [facility] Address: [address] [place] [address] Result Comment: The [place] [employer] (ADA) provides guidance for cutoff values for fasting glucose and random glucose. The ADA defines fasting as no caloric intake for at least 8 hours. Fasting plasma glucose results between 100 to 125 mg/dL indicate increased risk for diabetes (prediabetes). Fasting plasma glucose results greater than or equal to 126 mg/dL meet the criteria for diagnosis of diabetes. In the absence of unequivocal hyperglycemia, results should be confirmed by repeat testing. In a patient with classic symptoms of hyperglycemia or hyperglycemic crisis, random plasma glucose results greater than or equal to 200 mg/dL meet the criteria for diagnosis of diabetes. Reference: Standards of Medical Care in Diabetes 2016, [place] [employer]. Diabetes Care. 2016.39(Suppl 1). Performed By: #### 2 4321-2, , 2776-07 ####[facility] LABORATORYCLIA [id number] [address] [place] [id number] [place] Potassium [Moles/Vol] 4.3 mmol/L Normal 3.7-5.1 [facility] Comment on above: Order Comment: Rhina mason Type: BLOOD SPECIMENOrdering Facility: [facility] Address: [address] [phone] Performed By: #### 2 4321-2, , 2776-07 ####[facility] LABORATORYCLIA [id number] [place] [address] [place] Sodium [Moles/Vol] 137 mmol/L Normal 136-144 [facility] Comment on above: Order Comment: Speci men Type: BLOOD SPECIMENOrdering Facility: [facility] Address: [address] [place] [address] Performed By: #### 2 4321-2, , 2776-07 ####[facility] LABORATORYCLIA [id number] [address] [place] Urea nitrogen [Mass/Vol] 27 mg/dL High 7-21 [facility] Comment on above: Order Comment: Speci men Type: BLOOD SPECIMENOrdering Facility: [facility] Address: [address] [place] [address] Performed By: #### 2 4321-2, , 2776-07 ####[facility] LABORATORYCLIA [id number] [address] CBC panel Auto (Bld)on 06-17 Erythrocyte distribution width (RBC) [Ratio] 15.5 % High 11.5-15.0 [facility] Comment on above: Order Comment: Speci men Type: BLOOD SPECIMENOrdering Facility: [facility] Address: [address] [place] [address] Performed By: #### 5 8410-2 ####[facility] LABORATORYCLIA [id number] [address] STATES OF [facility] Hematocrit (Bld) [Volume fraction] 26.6 % Low 36.0-46.0 [facility] Comment on above: Order Comment: Speci men Type: BLOOD SPECIMENOrdering Facility: [facility] Address: [address] [place] [address] Performed By: #### 5 8410-2 ####[facility] LABORATORYCLIA [id number] [address] Hemoglobin (Bld) [Mass/Vol] 8.5 g/dL Low 11.5-15.5 [facility] Comment on above: Order Comment: Speci men Type: BLOOD SPECIMENOrdering Facility: [facility] Address: [address] [address] Performed By: #### 5 8410-2 ####[facility] LABORATORYCLIA [id number] [address] MCH (RBC) [Entitic mass] 30.0 pg Normal 26.0-34.0 [facility] Comment on above: Order Comment: Speci men Type: BLOOD SPECIMENOrdering Facility: [facility] Address: [address] [address] Performed By: #### 5 8410-2 ####[facility] LABORATORYCLIA [id number] [address] MCHC (RBC) [Mass/Vol] 32.0 g/dL Normal 30.5-36.0 [facility] Comment on above: Order Comment: Speci men Type: BLOOD SPECIMENOrdering Facility: [facility] Address: [address] [place] [address] Performed By: #### 5 8410-2 ####[facility] LABORATORYCLIA [id number] [address] MCV (RBC) [Entitic vol] 94.0 fL Normal 80.0-100.0 [facility] Comment on above: Order Comment: Speci men Type: BLOOD SPECIMENOrdering Facility: [facility] Address: [address] [place] [address] Performed By: #### 5 8410-2 ####[facility] LABORATORYCLIA [id number] [address] Nucleated RBC (Bld) [#/Vol] 0.02 10*3/uL High <0.01 [facility] Comment on above: Order Comment: Speci men Type: BLOOD SPECIMENOrdering Facility: [facility] Address: [address] [place] [address] Performed By: #### 5 8410-2 ####[facility] LABORATORYCLIA [id number] [place] [address] [place] Platelet mean volume (Bld) [Entitic vol] 9.5 fL Normal 9.0-12.7 [facility] Comment on above: Order Comment: Speci men Type: BLOOD SPECIMENOrdering Facility: [facility] Address: [address] [place] [address] Performed By: #### 5 8410-2 ####[facility] LABORATORYCLIA [id number] [place] [address] [place] Platelets (Bld) [#/Vol] 223 10*3/uL Normal 150-400 [facility] Comment on above: Order Comment: Speci men Type: BLOOD SPECIMENOrdering Facility: [facility] Address: [address] [place] [address] Performed By: #### 5 8410-2 ####[facility] LABORATORYCLIA [id number] [address] [place] RBC (Bld) [#/Vol] 2.83 10*6/uL Low 3.90-5.20 [facility] Comment on above: Order Comment: Speci men Type: BLOOD SPECIMENOrdering Facility: [facility] Address: [address] [place] [address] Performed By: #### 5 8410-2 ####[facility] LABORATORYCLIA [id number] [address] [place] WBC (Bld) [#/Vol] 8.61 10*3/uL Normal 3.70-11.00 [facility] Comment on above: Order Comment: Speci men Type: BLOOD SPECIMENOrdering Facility: [facility] Address: [address] [place] [address] Performed By: #### 5 8410-2 ####[facility] LABORATORYCLIA [id number] [address] CONSULTon 06-17-2022 CONSULT HNO ID: [id number] Author: García Monique MD Service: Cardiovascular Medicine Author Type: Physician Type: Consults Filed: 06/17/2022 11:14 AM Note Text: [facility]IOVASCULAR INTENSIVE [facility]ARE UNIT ([facility]) History AND Physical Note PATIENT NAME: Mel Castillo DATE: June 17, 2022 ADMITTED FOR: Subjective HPI Ms. Mel Castillo is a 81 year old female with PMH: - Paroxysmal Afib - GERD - HTN - Hypothyroidism Patient presented to [facility] on 06/16/2022 for evaluation of left leg pain found to have acute left femoral artery occlusion for which she underwent thrombolysis however was not able to achieve complete revascularization so patient was continued on heparin drip. She states that since she has been diagnosed with covid she is Sob and has intermittent chest pain joshua when she walks to the bathroom, which is pressure like in the centre of the chest all of which started around her covid symptoms. States doesnot see a image assembler and has no other past cardiac history other than paroxysmal Afib and HTN. CHRISTOPHER 28>22. EKG : Afib hr 120, no ischemic changes. Review of Systems Constitutional: Positive for fatigue. HENT: Negative. Respiratory: Positive for shortness of breath. Cardiovascular: Positive for chest pain and leg swelling. Genitourinary: Negative. Neurological: Negative. A complete 10 point review of systems was obtained and is otherwise negative PAST MEDICAL HISTORY Diagnosis Date Acute bacterial sialadenitis Chronic atrial fibrillation (HCC) GERD (gastroesophageal reflux disease) HTN (hypertension) Hypothyroidism PAST SURGICAL HISTORY Procedure Laterality Date DANDC, DIAG AND/OR THERAPEUTIC TOTAL ABDOM HYSTERECTOMY FAMILY HISTORY Problem Relation Age of Onset Lung Cancer Father Cancer Brother Social History Tobacco Use Smoking status: Every Day Packs/day: 0.50 Years: 50.00 Pack years: 25.00 Types: Cigarettes Smokeless tobacco: Never Substance Use Topics Alcohol use: Not Currently Drug use: Never No current facility-administered medications on file prior to encounter. No current outpatient medications on file prior to encounter. Objective OBJECTIVE Patient Vitals for the past 4 hrs: Arterial BP 1 Pulse Resp SpO2 06/17/22 0800 101/50 100 16 99 % 06/17/22 0600 106/50 87 17 98 % 06/17/22 0527 113/56 86 16 97 % 06/17/22 0500 136/64 97 18 98 % Body mass index is 26.94 kg/m?., No results found for: HBA1C Intake/Output Summary (Last 24 hours) at 06/17/2022 0837 Last data filed at 06/17/2022 0527 Gross per 24 hour Intake 2465 ml Output 1000 ml Net 1465 ml Physical Exam Constitutional: Appearance: Normal appearance. HENT: Head: Normocephalic. Eyes: Pupils: Pupils are equal, round, and reactive to light. Cardiovascular: Rate and Rhythm: Normal rate. Rhythm irregular. Pulses: Normal pulses. Heart sounds: Normal heart sounds. Pulmonary: Effort: Pulmonary effort is normal. Comments: Mild wheezing in right lower lobe and crackles in right middle and lower lobe Abdominal: General: Bowel sounds are normal. Palpations: Abdomen is soft. Musculoskeletal: General: Swelling (left leg with tenderness) present. Skin: General: Skin is warm. Capillary Refill: Capillary refill takes less than 2 seconds. Findings: Lesion present. Neurological: General: No focal deficit present. Mental Status: She is alert. LABORATORY: Cardiac:No results for input(s): CKTEST, CKMB, CKMBP, TROPONIN, BNP in the last 168 hours. BLOOD GAS: CBC: Recent Labs 06/17/22 0510 06/16/22 0826 06/16/22 0341 WBC 8.61 10.43 15.82* HB 8.5* 9.8* 11.4* HCT 26.6* 30.1* 35.3* PLT 223 277 373 MCV 94.0 94.7 93.6 RDWCV 15.5* 15.5* 15.6* NEUTP -- -- 76.0 ABSNEUT -- -- 12.02* LYMPHP -- -- 8.0 MONOP -- -- 11.0 COAG: Recent Labs 06/17/22 0027 06/16/22 2056 06/16/22 1215 06/16/22 0951 06/16/22 0304 APTT 28.5 74.2* 134.7* >139.0* 21.7* INR -- -- -- -- 1.1 CMP: Recent Labs 06/17/22 0510 06/16/22 0341 GLUC 84 122* NA 137 139 K 4.3 4.4 CHLOR 107* 104 CO2 21* 18* ANION 9 17 BUN 27* 35* CREAT 0.99* 1.14* TBILI -- 0.3 ALKPHOS -- 111 AST -- 13 ALT -- 20 TPROT -- 6.6 URINALYSIS:No results for input(s): PH, SPGR, UGLUC, UBILI, UKET, UHB, UPROT, UROBIL, UWBC, SSA in the last 168 hours. Invalid input(s): NITR BLOOD GAS: VENTILATOR INFORMATION: Settings: Patient Data: Weaning Data: Microbiology: Positive Micro-30 Days Procedure Component Value Units Date/Time Expedited COVID19 [[id number]] (Abnormal) Collected: 06/16/22826 Order Status: Completed Specimen: Nasal Swab from UPPER RESPIRATORY TRACT SWAB Updated: 06/16/221107 COVID 19 Result SARS-CoV-2 (Agent of COVID-19) Detected by RT-PCR or equivalent method. Comment: This test has been authorized by FDA under an Emergency Use Authorization (EUA). IMAGING: CT chest: No results found for: (more content not included)... Normal [facility] CONSULT PROGon 06-17-2022 CONSULT PROG HNO ID: [id number] Author: Dominique Lauren RPh Service: Pharmacy Author Type: Pharmacist Type: Consult Progress Note Filed: 06/17/2022 3:48 PM Note Text: PHARMACY PROGRESS NOTE Patient Name: Mel Castillo Admission Date: 06/16/2022 Date of Consult: 06/17/2022 Time of Consult: 3:47 PM In accordance with the inpatient pharmacy consult agreement the following medication changes have been made: Renal dosing Discontinue Zosyn 4.5g IV Q 8 hours, change to Zosyn 4.5g IV Q 6 hours per renal dosing guidelines. Creatinine (mg/dL) Date Value 06/17/2022 0.99 (H) CrCl: 42.4 mL/min Pharmacy will continue to monitor patient for continued eligibility of these medication changes. Please call with any questions or concerns. SIGNATURE: Dominique Lauren RPh DATE/TIME: 06/17/2022 3:47 PM [facility] CONSULT PROG HNO ID: [id number] Author: Emanuel Hull MD Service: General Surgery Author Type: Resident Type: Consult Progress Note Filed: 06/17/2022 7:42 AM Note Text: Attestation signed by Frida Rodriguez MD at 06/19/2022 2:08 PM Attending Note I personally saw and examined the patient 06/17/22. I reviewed the resident's note. I agree with the resident's assessment and plan unless otherwise noted. Signature: Frida Rodriguez MD Date: 06/19/2022 Time: 2:08 PM Vascular Surgery Progress Note SERVICE DATE: June 17, 2022 Vascular and Thoracic Service Pager: For questions or concerns Mon-Fri 6a-5p please page [phone]. After 5pm and on Weekends and Holidays, please page [phone] if in ICU or [phone] if on RNF. Subjective SUBJECTIVE: Was able to get some good sleep. Still having pain in her left leg but denies any weakness, numbness, tingling, etc. She has not been able to get up at this time yet. She is mostly very hungry and wants breakfast. Denies N/V/CP/SOB Diet: DIET NPO Objective OBJECTIVE: Vitals: Temp (24hrs), Av.6 ?C (97.9 ?F), Min:36.5 ?C (97.7 ?F), Max:36.7 ?C (98.1 ?F) BP 81/59 Pulse 87 Temp 36.6 ?C (97.9 ?F) Resp 17 Ht 162.6 cm (5' 4") Wt 71.2 kg (156 lb 15.5 oz) SpO2 98% BMI 26.94 kg/m? O2 Therapy: Nasal Cannula IANDO: Date 06/16/22 07 - 06/17/22 0659 06/17/22 0700 - 06/18/22 0659 Shift 5697-6033 7448-3280 0175-4536 24 Hour Total 6431-6606 8604-8954 4532-9660 24 Hour Total INTAKE IV 600 1000 1465 3065 Volume (mL) 65 65 Volume (mL) (lactated ringers 500 mL iv bolus) 500 500 Volume (mL) (piperacillin-tazobacta m 4.5 g in D5W 100 mL Vial-Bag (ZOSYN)) 100 100 Volume (mL) (piperacillin-tazobacta m 4.5 g in D5W 100 mL Vial-Bag (ZOSYN)) 200 200 Volume (mL) (lactated ringers iv infusion) 1200 1200 Volume (mL) (lactated ringers iv infusion) 200 200 Volume (mL) (lactated ringers iv infusion) 800 800 Shift Total 600 1000 1465 3065 OUTPUT Urine 700 200 900 OR Urine Output 700 700 Output ( External Collection Device 06/16/22 2331) 200 200 Blood 100 100 Estimated Blood loss 100 100 Shift Total 663 881 2191 Weight (kg) 72.6 71.2 71.2 71.2 71.2 71.2 71.2 71.2 MEDICATIONS Current Facility-Administered Medications Medication Dose Route Frequency heparin iv infusion 25,000 units in NaCl 0.45% 250 mL STANDARD NOMOGRAM 0-3,000 Units/hr INTRAVENOUS CONTINUOUS And heparin RATE CHANGE bolus 1,000-10,000 Units for subtherapeutic PTTAC results 1,000-10,000 Units INTRAVENOUS PRN piperacillin-tazobactam 4.5 g in D5W 100 mL Vial-Bag (ZOSYN) 4.5 g INTRAVENOUS q 8 H HYDROmorphone (PF) 0.5 mg injection (DILAUDID) 0.5 mg INTRAVENOUS q 3 H PRN sodium chloride 0.9 % (flush) 3-5 mL (BD POSIFLUSH) 3-5 mL INTRAVENOUS q 12 H lactated ringers iv infusion 100 mL/hr INTRAVENOUS CONTINUOUS acetaminophen 1,000 mg tab(s) (TYLENOL) 1,000 mg ORAL q 6 H Labs: Recent Labs 06/17/22 0510 06/16/22 0826 06/16/22 0818 06/16/22 0458 06/16/22 0341 06/16/22 0341 06/16/22 0304 NA 137 -- -- -- -- 139 -- K 4.3 -- -- -- -- 4.4 -- CHLOR 107* -- -- -- -- 104 -- CO2 21* -- -- -- -- 18* -- BUN 27* -- -- -- -- 35* -- CREAT 0.99* -- -- -- -- 1.14* -- GLUC 84 -- -- -- -- 122* -- ANION 9 -- -- -- -- 17 -- CA 7.9* -- -- -- -- 9.1 -- MG 2.1 -- -- -- -- 2.4* -- P 3.8 -- -- -- -- -- -- ALB -- -- -- -- -- 3.2* -- AST -- -- -- -- -- 13 -- ALT -- -- -- -- -- 20 -- ALKPHOS -- -- -- -- -- 111 -- TBILI -- -- -- -- -- 0.3 -- WBC 8.61 10.43 -- -- < > 15.82* -- HB 8.5* 9.8* -- -- < > 11.4* -- HCT 26.6* 30.1* -- -- < > 35.3* -- PLT 223 277 -- -- < > 373 -- LACT -- -- 1.8 2.3* -- -- -- INR -- -- -- -- -- -- 1.1 < > = values in this interval not displayed. Physical Exam: GENERAL: No distress, Alert NEURO: AANDOx3, CN II-XII grossly intact HEENT: Normocephalic, atraumatic LUNGS: Equal chest rise, Unlabored breathing O2 Therapy: Nasal Cannula CARDIAC: Regular rate as above, warm extremities ABDOMEN: Soft, non-tender, non-distended. No rebound or guarding. EXTREMITIES: LLE with significant swelling/pitting edema. Two stitches in posterior knee. Hemostatic. PULSES: Dopplerable DP/PT in bilateral lower extremities. 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 Normal [facility] ECHOon 06-17-2022 Echocardiography Echocardiography Report: Transthoracic Echo [facility] Date of service: 06/17/2022 10:27:19 AM [facility] Ordering physician: GARCÍA MONIQUE Indication: Nonsustained atrial fibrillation Technologist: Glendy Pena [facility] Interpreting physician: Nando Costa MD PATIENT: Name: MEL CASTILLO : 1940 Age: 81 years Gender: F History of arrhythmia and COPD. Primary rhythm: atrial fib. Height: 162.60 cm BSA: 1.79 m Weight: 71.20 kg BMI: 26.9 kg/m Blood pressure 108/56 mmHg Technically difficult exam due to body habitus and suboptimal positioning. Color Doppler was utilized to interrogate the cardiac valves assessed and spectral Doppler was utilized to determine the flow velocities and pressure gradients reported in this exam. MEASUREMENTS: Value Indexed Normal LV ID (diastole) 3.2 cm (2D) 1.79 cm/m LV ID (systole) 2.3 cm (2D) 1.26 cm/m IVS, leaflet tips 1.3 cm (2D) Posterior wall thickness 1.2 cm (2D) Left ventricular mass 130 g (2D) 72 g/m LV stroke volume 34 ml (2D biplane) LV end diastolic volume 58 ml (2D biplane) 32.3 ml/m 29<=EDVi<62 LV end systolic volume 24 ml (2D biplane) 13.2 ml/m Ejection Fraction 59 % (2D biplane) EF > 54 FINDINGS: LEFT VENTRICLE The left ventricle is normal in size. There is mild left ventricular hypertrophy. Left ventricular systolic function is normal globally. Left ventricular diastolic function was not evaluated due to AF. Wall Motion: All scored segments are normal. RIGHT VENTRICLE The right ventricle is not well visualized. On limited views, the right ventricle appears grossly normal in size and systolic function. RV systolic tissue Doppler velocity is 10.3 cm/s. Estimated right ventricular systolic pressure is likely underestimated due to a weak or incomplete tricuspid regurgitation signal and is, at least, 23 mmHg consistent with normal pulmonary artery pressures. Estimated right atrial pressure is 3 mmHg based on IVC assessment. LEFT ATRIUM The left atrial cavity appears grossly dilated based on limited visual evaluation. Unable to reliably measure LA volume due to technical limitations. RIGHT ATRIUM The right atrial cavity appears grossly dilated based on limited visual evaluation. Unable to reliably measure RA volume due to technical limitations. Inferior Vena Cava: The inferior vena cava appears normal measuring 1.6 cm. The vessel decreases greater than 50 percent with inspiration. MITRAL VALVE There is mild mitral annular calcification observed posterior. There is trace mitral valve regurgitation. There is mild thickening. TRICUSPID VALVE The tricuspid valve leaflets are structurally normal. There is mild (1+) tricuspid valve regurgitation. AORTIC VALVE There is no aortic valve stenosis. There is no aortic valve regurgitation. Tricuspid aortic valve. There is mild thickening. PULMONIC VALVE The pulmonic valve was not seen or not interrogated. AORTA The aorta is unseen or not interrogated. PULMONARY ARTERIES The pulmonary arteries are unseen or not interrogated. PERICARDIUM There is no pericardial effusion. CONCLUSIONS: - Technically difficult exam due to body habitus and suboptimal positioning. - Exam indication: Nonsustained atrial fibrillation - The left ventricle is normal in size. There is mild left ventricular hypertrophy. Left ventricular systolic function is normal. EF = 59 5% (2D biplane) Left ventricular diastolic function was not evaluated due to AF. - The left atrial cavity is dilated. - The right atrial cavity is dilated. - The right ventricle is not well visualized. On limited views, the right ventricle appears grossly normal in size and systolic function. - There are no significant valvular abnormalities. - The patient has not had a prior [facility] echocardiographic exam for comparison. * * * Final * * * [employer] : [id number] Normal [facility] Magnesium SerPl-mCncon 06-17 Magnesium [Mass/Vol] 2.1 mg/dL Normal 1.7-2.3 [facility] Comment on above: Order Comment: Speci men Type: BLOOD SPECIMENOrdering Facility: [facility] Address: [address] [place], [place] [id number] Performed By: #### 2 4321-2, 57580-2, 2777-1 ####[facility] LABORATORYCLIA [id number] [place] [address] [facility] Phosphate SerPl-mCncon 06-17 Phosphate [Mass/Vol] 3.8 mg/dL Normal 2.7-4.8 [facility] Comment on above: Order Comment: Speci [facility] Type: BLOOD SPECIMENOrdering Facility: [facility] Address: [address] [place] [address] Performed By: #### 2 4321-2, 86535-7, 2777-1 ####[facility] LABORATORYCLIA [id number] [address] [place] XR CHEST 1V FRONTALon 2021 XR CHEST 1V FRONTAL * * *Final Report* * * DATE OF EXAM: Jun 17 2022 9:31AM AKX [id number] - XR CHEST 1V FRONTAL / PROCEDURE REASON: Shortness of breath * * * * Physician Interpretation * * * * EXAMINATION: CHEST RADIOGRAPH (SINGLE VIEW AP OR PA) CLINICAL HISTORY: Shortness of breath MQ: XC1_5 Comparison: None. 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 Hardware noted in the proximal right humerus from previous fracture repair. Lungs and pleura: Vague opacity at right lung base and also in the left midlung. Patchy areas of pneumonia are the top consideration especially when compared to CT angiogram of the abdomen which included portions of the lungs dated 06/16/2022. Cardiomediastinal silhouette: Heart size normal. Other: No significant additional findings. IMPRESSION: Patchy opacities in both lungs suspicious for multifocal pneumonia. Manager Hris: DEVEN Transcribe Date/Time: Jun 17 2022 10:41A Dictated by : DI MINER MD This examination was interpreted and the report reviewed and electronically signed by: DI MINER MD on Jun 17 2022 10:43AM EST [id number] Normal [facility] aPTT PPPon 06-17-2022 aPTT Coag (PPP) [Time] 48.4 s High 23.0-32.4 [facility] Comment on above: Order Comment: Speci men Type: BLOOD SPECIMENOrdering Facility: [facility] Address: [address] [address] Performed By: #### 9 4500-6 #### [facility] CLIA [id number] [address] aPTT Coag (PPP) [Time] 29.4 s Normal 23.0-32.4 [facility] Comment on above: Order Comment: Speci men Type: BLOOD SPECIMENOrdering Facility: [facility] Address: [address] [place] [address] Performed By: #### 3 2355-0 #### [facility] CLIA [id number] [address] aPTT Coag (PPP) [Time] 125.1 s High 23.0-32.4 [facility] Comment on above: Order Comment: Speci men Type: BLOOD SPECIMEN [facility] Address: [address] [place] [address] Performed By: #### T SCR #### [facility] CLIA [id number] [address] aPTT Coag (PPP) [Time] s High 23.0-32.4 [facility] Comment on above: Order Comment: Speci men Type: BLOOD SPECIMENOrdering Facility: [facility] Address: [address] [place] [address] Performed By: #### 3 2355-0 #### [facility] CLIA [id number] [place] [address] [place] aPTT Coag (PPP) [Time] 28.5 s Normal 23.0-32.4 [facility] Comment on above: Order Comment: Speci men Type: BLOOD SPECIMENOrdering Facility: [facility] Address: [place] [address] Performed By: #### 1 4979-9 ####[facility] LABORATORYCLIA [id number] [address] OF [facility] ANES PRE-OPon 06-16-2022 ANES PRE-OP HNO ID: [id number] Author: Olu Winn MD Service: Anesthesiology Author Type: Physician Type: Anesthesia Preprocedure Evaluation Filed: 06/16/2022 5:41 PM Note Text: ANESTHESIOLOGY DAY OF SURGERY NOTE : 1940 Procedure Information Date/Time: 06/16/221539 Procedure: TRANSCATHETER THERAPY VENOUS INFUSION FOR THROMBOLYSIS W/RADIOLOGICAL SUPERVISION/INTERPRETAT ION INITIAL TREATMENT DAY, venogram (Left: Leg lower ) Location: ME OR / ME OR Surgeons: Frida Rodriguez MD Estimated body mass index is 27.46 kg/m? as calculated from the following: Height as of this encounter: 162.6 cm (5' 4"). Weight as of this encounter: 72.6 kg (160 lb). Most recent hematocrit and potassium results: Hematocrit 30.1 06/16/2022 Potassium 4.4 06/16/2022 Relevant Problems CARDIO (+) Chronic atrial fibrillation (HCC) (+) HTN (hypertension) (+) Ischemic leg ENDO (+) Hypothyroidism GI (+) GERD (gastroesophageal reflux disease) PULMONARY (+) Bilateral pneumonia (+) COPD (chronic obstructive pulmonary disease) (HCC) Smoker, COPD Paroxysmal atrial fibrillation with RVR, HR 130 on presentation - received metoprolol, HR now 90 in ED Hypothyroidism GERD Remote DVT s/p IVC filter Presented with leg pain and discoloration Found to have acute left proximal DVT, plan for endovascular thrombolysis COVID 19 positive with underlying COPD NC O2 in ED with SpO2 in mid 90s Bedbugs positive HTN I - PHYSICAL EVALUATION AIRWAY Patient intubated: No. Tracheostomy tube not present Mallampati: III. TM distance: >3 FB. Neck ROM: full ROM without neurological symptoms. Mouth opening: adequate. Short neck: no. Thick neck: no Arenas present: no DENTAL Dental findings: edentulous. Dentures, upper: complete. Dentures, lower: complete. Additional exam findings: no II - ANESTHESIA PLAN ASA Score: 3; emergent. Anesthetic Plan: general Airway type: ETT The patient is not a current smoker. NPO Status: adequate Beta Essie Monitoring Plan Monitoring plan: standard ASA and invasive hemodynamic monitoring. Monitoring method: arterial Line Post Procedure Analgesic Plan Postoperative analgesic plan: parenteral or oral opioids and go to ICU. Informed Consent Anesthetic risks, benefits, alternatives, personnel and consent discussed: yes. Patient / Responsible Constitution Party agrees to proceed: yes Patient / Surrogate agrees to blood products: Yes Significant changes in the patient condition since the History and Physical, not otherwise documented in primary service progress note: no. Potential Anesthesia issues that may suggest increased risk of complications or contraindication to planned procedure: none. Vitals Value Taken Time BP 95/52 06/16/22 1530 Pulse 80 06/16/22 1543 Resp 17 06/16/22 1543 Temp SpO2 96 % 06/16/22 1543 Vitals shown include unvalidated device data. Facility-Administered Medications as of 06/16/2022 Medication Dose Route Frequency - [COMPLETED] NaCl 0.9% 1,000 mL iv bolus 1,000 mL INTRAVENOUS ONCE - [COMPLETED] fentaNYL 50 mcg/mL 50 mcg injection (SUBLIMAZE) 50 mcg INTRAVENOUS ONCE - heparin iv infusion 25,000 units in NaCl 0.45% 250 mL STANDARD NOMOGRAM 0-3,000 Units/hr INTRAVENOUS CONTINUOUS And - heparin RATE CHANGE bolus 1,000-10,000 Units for subtherapeutic PTTAC results 1,000-10,000 Units INTRAVENOUS PRN - [COMPLETED] heparin nomogram INITIAL BOLUS 80 units/kg/dose INTRAVENOUS ONCE (heparin bolus) - NaCl 0.9% iv flush bag 20 mL INTRAVENOUS PRN - [COMPLETED] lactated ringers 500 mL iv bolus 500 mL INTRAVENOUS ONCE - lactated ringers iv infusion 100 mL/hr INTRAVENOUS CONTINUOUS - [COMPLETED] HYDROmorphone (PF) 0.5 mg injection (DILAUDID) 0.5 mg INTRAVENOUS ONCE - piperacillin-tazobactam 4.5 g in D5W 100 mL Vial-Bag (ZOSYN) 4.5 g INTRAVENOUS q 8 H - sodium chloride 0.9 % (flush) 3-5 mL (BD POSIFLUSH) 3-5 mL INTRAVENOUS q 12 H - ondansetron 4 mg tab(s) (ZOFRAN) 4 mg ORAL q 6 H PRN Or - ondansetron (PF) 4 mg injection (ZOFRAN) 4 mg INTRAVENOUS q 6 H PRN - acetaminophen 650 mg tab(s) (TYLENOL) 650 mg ORAL q 6 H PRN - HYDROmorphone (PF) 0.5 mg injection (DILAUDID) 0.5 mg INTRAVENOUS q 3 H PRN - albuterol HFA 90 mcg/actuation 2 Puff (PROVENTIL HFA, VENTOLIN HFA) 2 Puff INHALATION q 4 H PRN - metoprolol tartrate (short acting) 12.5 mg tab(s) (LOPRESSOR) 12.5 mg ORAL q 12 H No current outpatient medications on file as of 06/16/2022. I have interviewed and examined the patient. I have reviewed the medical record and/or the pre-anesthesia evaluation, pertinent labs, and test results. This contains updated information obtained within 48 hours of Surgery/Procedure. SIGNATURE: Olu Winn MD PATIENT NAME: Mel Castillo DATE: June 16, 2022 TIME: 3:44 PM CSN: [id number] [facility] BRIEF OP NOTon 06-16-2022 BRIEF OP NOT HNO ID: [id number] Author: Emanuel Hull MD Service: General Surgery Author Type: Resident Type: Brief Op Note Filed: 06/16/2022 7:23 PM Note Text: Attestation signed by Frida Rordiguez MD at 06/19/2022 2:07 PM Attending Note I personally saw and examined the patient 06/16/22. I reviewed the resident's note. I agree with the resident's assessment and plan unless otherwise noted. Signature: Frida Rodriguez MD Date: 06/19/2022 Time: 2:07 PM BRIEF OPERATIVE / PROCEDURE NOTE LOG ID: [id number] Surgery/Procedure Date: 06/16/2022 Incision/Procedure Start Time: 5:01 PM Incision Close/Procedure End Time: 6:58 PM Surgeon(s)/Proceduralis t(s) and Extractor Operator(s): Surgeon(s) and Role: * Frida Rodriguez MD - Primary * Emanuel Hull MD - Resident - Assisting * Devan Archer MD - Resident - Assisting No Additional Staff Procedure(s): Procedure(s): TRANSCATHETER THERAPY VENOUS INFUSION FOR THROMBOLYSIS W/RADIOLOGICAL SUPERVISION/INTERPRETAT ION INITIAL TREATMENT DAY: VENOGRAM WITH IVUS Procedure(s): GERALDINE Angio: Access: Left popliteal vein Closure: Pressure provided by Dr. Archer Contrast: 30 cc's Fluorotime: 16.7 min, 404 Gy Anesthesia: General ASA Class: 3 Findings: Please see operative report for full details Pulses: LLE: +2 DP, +2 PT Medications: Antiplatelet: No - Reason: Not needed Anticoagulation: Yes Statin: Yes - Medication: Heparin gtt Dose: To start at last level. Will need to be held 2 hours post-op Beta Essie: Yes - Medication: Metoprolol Dose: 12.5 mg BID Estimated Blood Loss: 50 mls IV Fluids: Per anesthesia report Urine output: Per anesthesia report Specimens: * No specimens in log * Complications: None Drains: None Wound Classification: Class 1, operative wound clean, non-traumatic, with no inflammation encountered, no break in technique, gastrointestinal and genitor-urinary tracts not entered PRE-OP/PRE-PROCEDURE DIAGNOSIS: Phlegmasia cerulea dolens POST-OP/POST-PROCEDURE DIAGNOSIS: Same as Preop From 5pm to 6 am and on weekends, please page surgery on-call [phone] (RNF) or [phone] (ICU) SIGNATURE: Emanuel Hull MD PATIENT NAME: Mel Castillo DATE: June 16, 2022 TIME: 7:19 PM PAGER/CONTACT #: [phone] Normal [facility] CBC W Auto Differential pane l (Bld)on 06-16-2022 Anisocytosis Ql (Bld) Present Normal [facility] Comment on above: Order Comment: Speci men Type: BLOOD SPECIMENOrdering Facility: [facility] Address: [address] [place] [address] Performed By: #### 5 7021-8 ####[facility] LABORATORYCLIA [id number] [address] OF [facility] Basophils (Bld) [#/Vol] 0.00 10*3/uL Normal <0.11 [facility] Comment on above: Order Comment: Speci men Type: BLOOD SPECIMENOrdering Facility: [facility] Address: [address] [place] [address] Performed By: #### 5 7021-8 ####[facility] LABORATORYCLIA [id number] [address] [place] Basophils/100 WBC (Bld) 0.0 % Normal A [facility] Comment on above: Order Comment: Speci men Type: BLOOD SPECIMENOrdering Facility: [facility] Address: [address] [place] [address] Performed By: #### 5 7021-8 ####[facility] LABORATORYCLIA [id number] [address] [place] Differential cell count method Nom (Bld) Manual Normal [facility] Comment on above: Order Comment: Speci men Type: BLOOD SPECIMENOrdering Facility: [facility] Address: [address] [place] [address] Performed By: #### 5 7021-8 ####[facility] LABORATORYCLIA [id number] [place] [address] [place] Eosinophils (Bld) [#/Vol] 0.00 10*3/uL Normal <0.46 [facility] Comment on above: Order Comment: Speci men Type: BLOOD SPECIMENOrdering Facility: [facility] Address: [address] [place] [address] Performed By: #### 5 7021-8 ####[facility] LABORATORYCLIA [id number] [address] [place] Eosinophils/100 WBC (Bld) 0.0 % Normal [facility] Comment on above: Order Comment: Speci men Type: BLOOD SPECIMENOrdering Facility: [facility] Address: [address] [place] [address] Performed By: #### 5 7021-8 ####[facility] LABORATORYCLIA [id number] [address] [place] Erythrocyte distribution width (RBC) [Ratio] 15.6 % High 11.5-15.0 [facility] Comment on above: Order Comment: Speci men Type: BLOOD SPECIMENOrdering Facility: [facility] Address: [address] [place] [address] Performed By: #### 5 7021-8 ####[facility] LABORATORYCLIA [id number] [address] [place] Hematocrit (Bld) [Volume fraction] 35.3 % Low 36.0-46.0 [facility] Comment on above: Order Comment: Speci men Type: BLOOD SPECIMENOrdering Facility: [facility] Address: [address] [place] [address] Performed By: #### 5 7021-8 ####[facility] LABORATORYCLIA [id number] [address] [place] Hemoglobin (Bld) [Mass/Vol] 11.4 g/dL Low 11.5-15.5 [facility] Comment on above: Order Comment: Speci men Type: BLOOD SPECIMENOrdering Facility: [facility] Address: [address] [place] [address] Performed By: #### 5 7021-8 ####[facility] LABORATORYCLIA [id number] [address] [place] Lymphocytes (Bld) [#/Vol] 1.27 10*3/uL Normal 1.00-4.00 [facility] Comment on above: Order Comment: Speci men Type: BLOOD SPECIMENOrdering Facility: [facility] Address: [address] [place] [address] Performed By: #### 5 7021-8 ####[facility] LABORATORYCLIA [id number] [address] Lymphocytes/100 WBC (Bld) 8.0 % Normal [facility] Comment on above: Order Comment: Speci men Type: BLOOD SPECIMENOrdering Facility: [facility] Address: [address] [place] [address] Performed By: #### 5 7021-8 ####[facility] LABORATORYCLIA [id number] [address] [place] MCH (RBC) [Entitic mass] 30.2 pg Normal 26.0-34.0 [facility] Comment on above: Order Comment: Speci men Type: BLOOD SPECIMENOrdering Facility: [facility] Address: [address] [place] [address] Performed By: #### 5 7021-8 ####[facility] LABORATORYCLIA [id number] [address] MCHC (RBC) [Mass/Vol] 32.3 g/dL Normal 30.5-36.0 [facility] Comment on above: Order Comment: Speci men Type: BLOOD SPECIMENOrdering Facility: [facility] Address: [address] [place] [address] Performed By: #### 5 7021-8 ####[facility] LABORATORYCLIA [id number] [address] [place] MCV (RBC) [Entitic vol] 93.6 fL Normal 80.0-100.0 [facility] Comment on above: Order Comment: Speci men Type: BLOOD SPECIMENOrdering Facility: [facility] Address: [address] [place] [address] Performed By: #### 5 7021-8 ####[facility]ORATORYCLIA [id number] [place] [address] [place] Monocytes (Bld) [#/Vol] 1.74 10*3/uL High <0.87 [facility] Comment on above: Order Comment: Speci men Type: BLOOD SPECIMENOrdering Facility: [facility] Address: [address] [address] Performed By: #### 5 7021-8 ####[facility]ORATORYCLIA [id number] [address] [place] Monocytes/100 WBC (Bld) 11.0 % Normal [facility] Comment on above: Order Comment: Speci men Type: BLOOD SPECIMENOrdering Facility: [facility] Address: [address] [place] [address] Performed By: #### 5 7021-8 ####[facility]ATORYCLIA [id number] [address] [place] MYELO% 4.0 % Normal [facility] Comment on above: Order Comment: Speci men Type: BLOOD SPECIMENOrdering Facility: [facility] Address: [address] [place] [address] Performed By: #### 5 7021-8 ####[facility]ATORYCLIA [id number] [address] [place] Neutrophils (Bld) [#/Vol] 12.02 10*3/uL High 1.45-7.50 [facility] Comment on above: Order Comment: Speci men Type: BLOOD SPECIMENOrdering Facility: [facility] Address: [address] [place] [address] Performed By: #### 5 7021-8 ####[facility]ATORYCLIA [id number] [address] Neutrophils/100 WBC (Bld) 76.0 % Normal [facility] Comment on above: Order Comment: Speci men Type: BLOOD SPECIMENOrdering Facility: [facility] Address: [address] [place], [place] [address] Performed By: #### 5 7021-8 ####[facility] LABORATORYCLIA [id number] [address] [place] Nucleated RBC (Bld) [#/Vol] 10*3/uL Normal <0.01 [facility] Comment on above: Order Comment: Speci men Type: BLOOD SPECIMENOrdering Facility: [facility] Address: [address] [place] [address] Performed By: #### 5 7021-8 ####[facility] LABORATORYCLIA [id number] [address] [place] Nucleated RBC/100 WBC (Bld) [Ratio] 0.0 /100 WBC Normal [facility] Comment on above: Order Comment: Speci men Type: BLOOD SPECIMENOrdering Facility: [facility] Address: [address] [place] [address] Performed By: #### 5 7021-8 ####[facility] LABORATORYCLIA [id number] [place] [address] [place] Platelet mean volume (Bld) [Entitic vol] 9.7 fL Normal 9.0-12.7 [facility] Comment on above: Order Comment: Speci men Type: BLOOD SPECIMENOrdering Facility: [facility] Address: [address] [place] [address] Performed By: #### 5 7021-8 ####[facility] LABORATORYCLIA [id number] [place] [address] [place] Platelets (Bld) [#/Vol] 373 10*3/uL Normal 150-400 [facility] Comment on above: Order Comment: Speci men Type: BLOOD SPECIMENOrdering Facility: [facility] Address: [address] [place] [address] Performed By: #### 5 7021-8 ####[facility] LABORATORYCLIA [id number] [place] [address] [place] Platelets Estimate (Bld) [#/Vol] Adequate Normal [facility] Comment on above: Order Comment: Speci men Type: BLOOD SPECIMENOrdering Facility: [facility] Address: [address] [place] [address] Performed By: #### 5 7021-8 ####[facility]ATORYCLIA [id number] [address] OF [facility] PROMYL% 1.0 % Normal [facility] Comment on above: Order Comment: Speci men Type: BLOOD SPECIMENOrdering Facility: [facility] Address: [address] [place] [address] Performed By: #### 5 7021-8 ####[facility] LABORATORYCLIA [id number] [address] RBC (Bld) [#/Vol] 3.77 10*6/uL Low 3.90-5.20 [facility] Comment on above: Order Comment: Speci men Type: BLOOD SPECIMENOrdering Facility: [facility] Address: [address] [place] [address] Performed By: #### 5 7021-8 ####[facility] LABORATORYCLIA [id number] [address] RED CELL MORPH Normal Normal [facility] Comment on above: Order Comment: Speci men Type: BLOOD SPECIMENOrdering Facility: [facility] Address: [address] [place] [address] Performed By: #### 5 7021-8 ####[facility]ATORYCLIA [id number] [address] SPHEROCYTES Few Normal [facility] Comment on above: Order Comment: Speci men Type: BLOOD SPECIMENOrdering Facility: [facility] Address: [address] [place] [address] Performed By: #### 5 7021-8 ####[facility]ORATORYCLIA [id number] [address] [place] WBC (Bld) [#/Vol] 15.82 10*3/uL High 3.70-11.00 [facility] Comment on above: Order Comment: Speci men Type: BLOOD SPECIMENOrdering Facility: [facility] Address: [address] [place] [address] Result Comment: Resu lts checked and verified. Performed By: #### 5 7021-8 ####[facility] LABORATORYCLIA [id number] [address] CBC panel Auto (Bld)on 06-16 Erythrocyte distribution width (RBC) [Ratio] 15.5 % High 11.5-15.0 [facility] Comment on above: Order Comment: Speci men Type: BLOOD SPECIMENOrdering Facility: [facility] Address: [address] [place] [address] Performed By: #### 5 8410-2 ####[facility] LABORATORYCLIA [id number] [address] STATES OF [facility] Hematocrit (Bld) [Volume fraction] 30.1 % Low 36.0-46.0 [facility] Comment on above: Order Comment: Speci men Type: BLOOD SPECIMENOrdering Facility: [facility] Address: [address] [place] [address] Performed By: #### 5 8410-2 ####[facility] LABORATORYCLIA [id number] [address] Hemoglobin (Bld) [Mass/Vol] 9.8 g/dL Low 11.5-15.5 [facility] Comment on above: Order Comment: Speci men Type: BLOOD SPECIMENOrdering Facility: [facility] Address: [address] [place] [address] Performed By: #### 5 8410-2 ####[facility] LABORATORYCLIA [id number] [address] MCH (RBC) [Entitic mass] 30.8 pg Normal 26.0-34.0 [facility] Comment on above: Order Comment: Speci men Type: BLOOD SPECIMENOrdering Facility: [facility] Address: [address] [place] [address] Performed By: #### 5 8410-2 ####[facility] LABORATORYCLIA [id number] [address] [place] MCHC (RBC) [Mass/Vol] 32.6 g/dL Normal 30.5-36.0 [facility] Comment on above: Order Comment: Speci men Type: BLOOD SPECIMENOrdering Facility: [facility] Address: [address] [place] [address] Performed By: #### 5 8410-2 ####[facility] LABORATORYCLIA [id number] [address] [place] MCV (RBC) [Entitic vol] 94.7 fL Normal 80.0-100.0 [facility] Comment on above: Order Comment: Speci men Type: BLOOD SPECIMENOrdering Facility: [facility] Address: [address] [place] [address] Performed By: #### 5 8410-2 ####[facility] LABORATORYCLIA [id number] [address] OF [facility] Nucleated RBC (Bld) [#/Vol] 0.08 10*3/uL High <0.01 [facility] Comment on above: Order Comment: Speci men Type: BLOOD SPECIMENOrdering Facility: [facility] Address: [address] [place] [address] Performed By: #### 5 8410-2 ####[facility] LABORATORYCLIA [id number] [address] [place] Platelet mean volume (Bld) [Entitic vol] 9.6 fL Normal 9.0-12.7 [facility] Comment on above: Order Comment: Speci men Type: BLOOD SPECIMENOrdering Facility: [facility] Address: [address] [place] [address] Performed By: #### 5 8410-2 ####[facility] LABORATORYCLIA [id number] [address] [place] Platelets (Bld) [#/Vol] 277 10*3/uL Normal 150-400 [facility] Comment on above: Order Comment: Speci men Type: BLOOD SPECIMENOrdering Facility: [facility] Address: [address] [address] Performed By: #### 5 8410-2 ####[facility] LABORATORYCLIA [id number] [address] RBC (Bld) [#/Vol] 3.18 10*6/uL Low 3.90-5.20 [facility] Comment on above: Order Comment: Speci men Type: BLOOD SPECIMENOrdering Facility: [facility] Address: [address] [place] [address] Performed By: #### 5 8410-2 ####[facility] LABORATORYCLIA [id number] [address] WBC (Bld) [#/Vol] 10.43 10*3/uL Normal 3.70-11.00 [facility] Comment on above: Order Comment: Speci men Type: BLOOD SPECIMENOrdering Facility: [facility] Address: [address] [place] [address] Performed By: #### 5 8410-2 ####[facility] LABORATORYCLIA [id number] [address] CONSULTon 06-16-2022 CONSULT HNO ID: [id number] Author: Iman Saldana DO Service: General Surgery Author Type: Resident Type: Consults Filed: 06/16/2022 5:00 AM Note Text: Attestation signed by Frida Rodriguez MD at 06/16/2022 12:28 PM Attending Note I personally saw and examined the patient. I reviewed the resident's note. I agree with the resident's assessment and plan unless otherwise noted. Patient with phelgmasia of LLE - IVC filter noted on CT that patient did not recall. Will plan for mechanical thrombectomy today Signature: Frida Rodriguez MD Date: 06/16/2022 Time: 12:27 PM VASCULAR AND THORACIC SURGERY CONSULT NOTE SERVICE DATE: 06/16/2022 SERVICE TIME: 4:53 AM URGENCY OF CONSULT: Semi-urgent REASON FOR CONSULT: Cold leg REQUESTING PHYSICIAN: Dr. Trevizo PRIMARY CARE PHYSICIAN: No primary care provider on file. Subjective HISTORY OF PRESENT ILLNESS: Ms. Jose Alberto Castillo is a 81 year old female with Afib who presented 06/16/2022 with left leg swelling and pain. She states that she woke up from a nap and noticed that her left leg was swollen, painful and discolored. She states prior to this she had no issues in her lower extremities, no history of vascular surgery and no difficulty walking. The left leg is swollen, purple discoloration and warm. Motor and sensory function is intact. She denies history of recent travel, hx of DVT/PE, or recent surgery. Vascular/Thoracic Surgical History or Testing: None Smoking Status: Unknown Ambulatory Status: Walks No past medical history on file. No past surgical history on file. No family history on file. (Not in a hospital admission) Current Facility-Administered Medications Medication Dose Route Frequency heparin iv infusion 25,000 units in NaCl 0.45% 250 mL STANDARD NOMOGRAM 0-3,000 Units/hr INTRAVENOUS CONTINUOUS And heparin RATE CHANGE bolus 1,000-10,000 Units for subtherapeutic PTTAC results 1,000-10,000 Units INTRAVENOUS PRN iv contrast (radiology procedure) INTRAVENOUS DIRECTED PRN ALLERGIES No Known Allergies COMPLETE REVIEW OF SYSTEMS: PAIN ASSESSMENT: positive for LLE pain. GENERAL: No weight loss, malaise or fevers NECK: Negative for lumps or significant neck swelling RESPIRATORY: Negative for cough, dyspnea or shortness of breath CARDIOVASCULAR: Negative for chest pain or palpitations GI: no nausea, vomiting, no Constipation or diarrhea : No history of dysuria, frequency or incontinence MUSCULOSKELETAL: Negative for joint pain or swelling SKIN: Positive for left leg discoloration Negative for lesions, rash, and itching HEMATOLOGY/LYMPHATIC: Negative for prolonged bleeding, bruising easily or swollen nodes NEURO: No history of headaches or seizures Objective PHYSICAL EXAM: GENERAL: Alert, no distress, cooperative HEENT: normocephalic, atraumatic, EOMI NECK: Trachea midline, no JVD SKIN: Left lower extremity with purple discoloration LUNGS: Unlabored breathing CARDIAC: Regular rate and rhythm as above ABDOMEN: Soft, non-tender, non-distended. EXTREMITIES: LEFT LE with purple discoloration, edema and warmth NEURO: AANDOx3, CN II-XII grossly intact, motor and sensory intact to b/l upper and lower extrmeities PSYCH: normal mood and affect PULSES/SIGNALS: LLE DP/PT/popliteal and femoral doppler signals intact RLE DP/PT doppler signals intact BP 117/97 Pulse (!) 124 Resp 21 Wt 72.6 kg (160 lb) SpO2 96% There is no height or weight on file to calculate BMI. DATA: Diagnostic tests reviewed for today's visit: CBC, Coags, BMP, Mg, Phos Recent Labs 06/16/22 03406/16/22 0304 WBC 15.82* -- HB 11.4* -- HCT 35.3* -- PLT 373 -- INR -- 1.1 APTT -- 21.7* NA 139 -- K 4.4 -- CHLOR 104 -- CO2 18* -- BUN 35* -- CREAT 1.14* -- GLUC 122* -- CA 9.1 -- MG 2.4* -- Liver Function, Amylase, AND Lipase Recent Labs 06/16/22 0341 TPROT 6.6 ALB 3.2* ALT 20 AST 13 ALKPHOS 111 TBILI 0.3 IMAGING: No orders to display Impression/Recommendati ons Active Problems: * No active hospital problems. * Resolved Problems: * No resolved hospital problems. * Assessment: This is a 81 year old female who presents with LLE pain/discoloration and edema with concern for ischemia Plan: Concern for LLE ischemia - Patient has good DP/PT signals bilaterally, motor and sensory function is intact bilaterally - Given the presence of edema and warmth, concern for phlegmasia curelens - DVT US and CTA with run off currently pending - Cont to monitor doppler signals - Discussed with Dr. Rodriguez 06/16/2022 SIGNATURE: Iman Saldana DO PATIENT NAME: Mel Castillo DATE: 06/16/2022 TIME: 4:53 AM PAGER/CONTACT #: below Vascular AND Thoracic Surgery Service Pager: For questions or co (more content not included)... Normal [facility] CTA ABD/PEL/LOWER EXT W IVCO Non 06-16-2022 CTA ABD/PEL/LOWER EXT W IVCON * * *Final Report* * * DATE OF EXAM: Jun 16 2022 7:33AM [facility] 0122 - CTA ABD/PEL/LOWER EXT W IVCON / PROCEDURE REASON: PULSE INDP/PT/PURPLE LLE * * * * Physician Interpretation * * * * CT ANGIOGRAPHY OF THE ABDOMINAL AORTA AND BILATERAL LOWER EXTREMITIES INDICATION:PULSE INDP/PT/PURPLE LLE TECHNIQUE: A helical CT scan was performed in the arterial phase of the abdominal aorta and bilateral lower extremities following intravenous contrast administration and images acquired on a multi-row detector CT scanner a slice thickness of 1 mm and reconstructions at 3 mm intervals. Advanced off-line 3-D processing was performed, with MIP and volume--rendering techniques. Contrast: IV administration of 100 ml of Omnipaque 350 CT Radiation dose: Integrated Dose-length product (DLP) for this visit = 716 mGy*cm. CT Dose Reduction Employed: [employer] COMPARISON: None ENCOUNTER: FINDINGS: AORTA: Atherosclerosis in the visualized aorta. No dissection or aneurysm. Moderate stenosis at celiac axis origin. Mild stenosis at SMA origin. YOVANI is patent. Bilateral renal arteries are patent with mild stenosis at origin. PELVIS: Atherosclerosis in bilateral iliac arteries. There is dilatation of the right common iliac artery measuring 1.4 cm in diameter. Moderate stenosis in the left distal common iliac artery. RIGHT LOWER EXTREMITY: COMMON FEMORAL:Patent DEEP FEMORAL:Patent SUPERFICIAL FEMORAL: Patent with mild stenosis. POPLITEAL:Patent ANTERIOR TIBIAL:Patent POSTERIOR TIBIAL: Intermittent occlusion in the mid and distal portion. PERONEAL:Patent LEFT LOWER EXTREMITY:... COMMON FEMORAL:Patent DEEP FEMORAL:Patent SUPERFICIAL FEMORAL:Occluded POPLITEAL:Occluded proximal to mid, reconstituted distally ANTERIOR TIBIAL:Diminished caliber. Occluded distally. POSTERIOR TIBIAL: Patent with intermittent stenosis distally. PERONEAL: Patent ADDITIONAL FINDINGS: Abdomen and pelvis: Small hiatal hernia. Bilateral subcentimeter hypodense renal lesions. The larger hypodense renal lesions likely represent cysts. No hydronephrosis or calculus. Unremarkable liver, pancreas, and gallbladder. No bowel wall thickening or dilatation. Diverticulosis without active inflammation. No significant lymphadenopathy. Lung bases: Bilateral lower lobe consolidation. Osseous structures: Left lower extremity swelling. No acute fracture. Right ankle hardware. 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 Diminished caliber of the left anterior tibial artery with distal occlusion. Additional vascular findings in the body of report. Left lower extremity swelling. No acute findings in the abdomen and pelvis. Bilateral lower lobe consolidation may represent pneumonia or atelectasis. Manager Hris: DEVEN Transcribe Date/Time: Jun 16 2022 7:54A Dictated by : ESTHER MCKEON MD This examination was interpreted and the report reviewed and electronically signed by: ESTHER MCKEON MD on Jun 16 2022 8:22AM EST [id number] Normal [facility] Comprehensive metabolic 2000 panelon 06-16-2022 Albumin [Mass/Vol] 3.2 g/dL Low 3.9-4.9 [facility] Comment on above: Order Comment: Speci men Type: BLOOD SPECIMENOrdering Facility: [facility] Address: [address] [address] Performed By: #### 3 3959-8, 24034-1, 70116-0, 17227-5 ####[facility] LABORATORYCLIA [id number] [address] [place] ALP [Catalytic activity/Vol] 111 U/L Normal 34-123 [facility] Comment on above: Order Comment: Speci men Type: BLOOD SPECIMENOrdering Facility: [facility] Address: [address] [address] Performed By: #### 3 3959-8, 82843-9, 85254-3, 10960-9 ####[facility] LABORATORYCLIA [id number] [place] [address] [place] ALT With P-5'-P [Catalytic activity/Vol] 20 U/L Normal 7-38 [facility] Comment on above: Order Comment: Speci men Type: BLOOD SPECIMENOrdering Facility: [facility] Address: [address] [place] [address] Performed By: #### 3 3959-8, 20496-2, 05184-2, 88720-9 ####[facility] LABORATORYCLIA [id number] [address] Anion gap [Moles/Vol] 17 mmol/L Normal 9-18 [facility] Comment on above: Order Comment: Speci men Type: BLOOD SPECIMENOrdering Facility: [facility] Address: [address] [place] [address] Performed By: #### 3 3959-8, 03088-6, 37324-5, 58025-2 ####[facility] LABORATORYCLIA [id number] [address] AST With P-5'-P [Catalytic activity/Vol] 13 U/L Normal 13-35 [facility] Comment on above: Order Comment: Speci men Type: BLOOD SPECIMENOrdering Facility: [facility] Address: [address] [place] [address] Performed By: #### 3 3959-8, 05901-1, 04989-0, 45988-6 ####[facility] LABORATORYCLIA [id number] [address] STATES OF [facility] Bilirubin [Mass/Vol] 0.3 mg/dL Normal 0.2-1.3 [facility] Comment on above: Order Comment: Speci men Type: BLOOD SPECIMENOrdering Facility: [facility] Address: [address] [place] [address] Performed By: #### 3 3959-8, 09639-0, 28148-9, 12479-7 ####[facility] LABORATORYCLIA [id number] [place] [address] [place] [facility] Calcium [Mass/Vol] 9.1 mg/dL Normal 8.5-10.2 [facility] Comment on above: Order Comment: Speci men Type: BLOOD SPECIMENOrdering Facility: [facility] Address: [address] [place] [address] Performed By: #### 3 3959-8, 22702-4, 89971-4, 60007-9 ####[facility] LABORATORYCLIA [id number] [place] [address] [place] Chloride [Moles/Vol] 104 mmol/L Normal 97-105 [facility] Comment on above: Order Comment: Speci men Type: BLOOD SPECIMENOrdering Facility: [facility] Address: [address] [place] [address] Performed By: #### 3 3959-8, 57255-0, 40563-4, 13448-6 ####[facility] LABORATORYCLIA [id number] [place] [address] [place] CO2 [Moles/Vol] 18 mmol/L Low 22-30 [facility] Comment on above: Order Comment: Speci men Type: BLOOD SPECIMENOrdering Facility: [facility] Address: [address] [place] [address] Performed By: #### 3 3959-8, 79256-3, 29017-9, 55008-6 ####[facility] LABORATORYCLIA [id number] [place] [address] [place] Creatinine [Mass/Vol] 1.14 mg/dL High 0.58-0.96 [facility] Comment on above: Order Comment: Speci men Type: BLOOD SPECIMENOrdering Facility: [facility] Address: [address] [place] [address] Performed By: #### 3 3959-8, 11030-5, 79165-7, 76155-5 ####[facility] LABORATORYCLIA [id number] [address] [place] ESTIMATED GLOMERULAR FILTRATION RATE 48 mL/min/1.73m??? Low >=60 [facility] Comment on above: Order Comment: Speci men Type: BLOOD SPECIMENOrdering Facility: [facility] Address: [address] [id number] Result Comment: Isa mated Glomerular Filtration Rate (eGFR) is calculated using the 2020 CKD-EPI creatinine equation. This equation utilizes serum creatinine, sex, and age as parameters. The creatinine assay has traceable calibration to isotope dilution-mass spectrometry. Refer to KDIGO guidelines for clinical interpretation. In patients with unstable renal function, e.g. those with acute kidney injury, the eGFR may not accurately reflect actual GFR. Performed By: #### 3 3959-8, 65656-7, 90279-1, 48907-1 ####[facility]ITALIA [id number] [place] [address] [place] Glucose [Mass/Vol] 122 mg/dL High 74-99 [facility] Comment on above: Order Comment: Rhina mason Type: BLOOD SPECIMENOrdering Facility: [facility] Address: [address] [place] [address] Result Comment: The [place] Diabetes Association (ADA) provides guidance for cutoff values for fasting glucose and random glucose. The ADA defines fasting as no caloric intake for at least 8 hours. Fasting plasma glucose results between 100 to 125 mg/dL indicate increased risk for diabetes (prediabetes). Fasting plasma glucose results greater than or equal to 126 mg/dL meet the criteria for diagnosis of diabetes. In the absence of unequivocal hyperglycemia, results should be confirmed by repeat testing. In a patient with classic symptoms of hyperglycemia or hyperglycemic crisis, random plasma glucose results greater than or equal to 200 mg/dL meet the criteria for diagnosis of diabetes. Reference: Standards of Medical Care in Diabetes 2016, [place] [employer] Association. Diabetes Care. 2016.39(Suppl 1). Performed By: #### 3 3959-8, 32959-6, 50877-1, 86394-7 ####[facility] LABORATORYCLIA [id number] [place] [address] [place] Potassium [Moles/Vol] 4.4 mmol/L Normal 3.7-5.1 [facility] Comment on above: Order Comment: Rhina mason Type: BLOOD SPECIMENOrdering Facility: [facility] Address: [address] [id number] Performed By: #### 3 3959-8, 26210-2, 22598-5, 46682-4 ####[facility] LABORATORYCLIA [id number] [address] [place] Protein [Mass/Vol] 6.6 g/dL Normal 6.3-8.0 [facility] Comment on above: Order Comment: Speci men Type: BLOOD SPECIMENOrdering Facility: [facility] Address: [address] [place] [address] Performed By: #### 3 3959-8, 03331-9, 54792-2, 51204-6 ####[facility] LABORATORYCLIA [id number] [address] STATES OF [facility] Sodium [Moles/Vol] 139 mmol/L Normal 136-144 [facility] Comment on above: Order Comment: Speci men Type: BLOOD SPECIMENOrdering Facility: [facility] Address: [address] [place] [address] Performed By: #### 3 3959-8, 40195-2, 25181-8, 81548-5 ####[facility] LABORATORYCLIA [id number] [address] [place] Urea nitrogen [Mass/Vol] 35 mg/dL High 7-21 [facility] Comment on above: Order Comment: Speci men Type: BLOOD SPECIMENOrdering Facility: [facility] Address: [address] [place] [address] Performed By: #### 3 3959-8, 60245-6, 96389-1, 19108-3 ####[facility] LABORATORYCLIA [id number] [place] [id number] [place] ED NOTEon 06-16-2022 ED NOTE HNO ID: [id number] Author: Adela Cortez RN Service: Emergency Medicine Author Type: Registered Nurse Type: ED Notes Filed: 06/16/2022 11:27 AM Note Text: Pts aptt is >139. Nongram states to hold dose and let MD know. Vascular resident made aware, ordered to hold dose x1 hour and then redraw aptt. [facility] ED NOTE HNO ID: [id number] Author: Nancy Scott RN Service: Emergency Medicine Author Type: Registered Nurse Type: ED Notes Filed: 06/16/2022 7:13 AM Note Text: CT notified that pt has been moved to new room and is ready for testing [facility] ED NOTE HNO ID: [id number] Author: Marleen Blank RN Service: ? Author Type: Registered Nurse Type: ED Notes Filed: 06/16/2022 6:59 AM Note Text: Bed: 19-ED Expected date: Expected time: Means of arrival: Comments: [facility] ED NOTE HNO ID: [id number] Author: Nancy Scott RN Service: Emergency Medicine Author Type: Registered Nurse Type: ED Notes Filed: 06/16/2022 6:44 AM Note Text: CT delayed due to pt needing to move rooms because of bed bugs. [facility] ED NOTE HNO ID: [id number] Author: Nancy Scott RN Service: Emergency Medicine Author Type: Registered Nurse Type: ED Notes Filed: 06/16/2022 3:09 AM Note Text: CT form faxed, ptt sent [facility] ED NOTE HNO ID: [id number] Author: Nancy Scott RN Service: Emergency Medicine Author Type: Registered Nurse Type: ED Notes Filed: 06/16/2022 3:02 AM Note Text: US notified [facility] ED NOTE HNO ID: [id number] Author: Nancy Scott RN Service: Emergency Medicine Author Type: Registered Nurse Type: ED Notes Filed: 06/16/2022 2:48 AM Note Text: CT notified [facility] ED NOTE HNO ID: [id number] Author: Nancy Scott RN Service: Emergency Medicine Author Type: Registered Nurse Type: ED Notes Filed: 06/16/2022 2:43 AM Note Text: Labs sent [facility] ED NOTE HNO ID: [id number] Author: Davian Chen RN Service: ? Author Type: Registered Nurse Type: ED Notes Filed: 06/16/2022 2:06 AM Note Text: Bed: 15-ED Expected date: Expected time: Means of arrival: Comments: ramesh Barrett [facility] ED PROV NOTEon 06-16-2022 ED PROV NOTE HNO ID: [id number] Author: Vanessa Trevizo DO Service: Emergency Medicine Author Type: Physician Type: ED Provider Notes Filed: 06/16/2022 11:28 PM Note Text: ED Provider Note Patient Name: Mel Castillo : 1940 SERVICE DATE: 06/16/22 History Patient presents with: Chest Pain: Pt called ems for chest pain and leg pain, pt found to be in afib rvr new onset. Pt's left lower leg is discolored and colder than the other leg. Pedal Pulse present HPI Patient presents with concern for chest pain and leg pain. Patient was found to be in A. fib with RVR via EMS. Patient denies a known history of A. fib though through chart review she has a history of it. She also has a purple left lower leg with diminished sensation. She is able to move her leg and states that it is painful. She does have cap refill. She states that her chest pain has now improved. She denies any fevers, nausea, vomiting. She does not have any known history of blood clots but also does not take any blood thinners. No known history of GI bleeds, head trauma, previous head bleeds. No past medical history on file. No past surgical history on file. No family history on file. Social History Tobacco Use - Smoking status: Not on file - Smokeless tobacco: Not on file Substance and Sexual Activity - Alcohol use: Not on file - Drug use: Not on file - Sexual activity: Not on file ALLERGIES No Known Allergies Review of Systems Constitutional: Negative for chills, fatigue and fever. HENT: Negative for congestion, hearing loss and sore throat. Eyes: Negative for pain, discharge and visual disturbance. Respiratory: Negative for cough, shortness of breath and wheezing. Cardiovascular: Positive for chest pain, palpitations and leg swelling. Gastrointestinal: Negative for abdominal pain, constipation, diarrhea, nausea and vomiting. Genitourinary: Negative for difficulty urinating, hematuria and urgency. Musculoskeletal: Negative for arthralgias, joint swelling and neck pain. Skin: Positive for color change. Negative for rash and wound. Neurological: Negative for dizziness, syncope and headaches. Psychiatric/Behavioral: Negative for confusion, self-injury and suicidal ideas. All other systems reviewed and are negative. Physical Exam Vitals BP Pulse Temp Temp src Resp SpO2 Weight Height 06/16/2221006/16/2221006/16/22 0811 -- 06/16/2221006/16/2221006/16/22210 -- 91/65 (!) 130 36.5 ?C (97.7 ?F) 22 100 % 72.6 kg (160 lb) Physical Exam Vitals reviewed. Constitutional: General: She is not in acute distress. HENT: Head: Normocephalic and atraumatic. Right Ear: External ear normal. Left Ear: External ear normal. Nose: Nose normal. Mouth/Throat: Mouth: Mucous membranes are moist. Pharynx: Oropharynx is clear. Eyes: Extraocular Movements: Extraocular movements intact. Conjunctiva/sclera: Conjunctivae normal. Cardiovascular: Rate and Rhythm: Tachycardia present. Rhythm irregular. Pulses: Radial pulses are 2+ on the right side and 2+ on the left side. Dorsalis pedis pulses are 2+ on the right side and 1+ on the left side. Heart sounds: Normal heart sounds. Pulmonary: Effort: Pulmonary effort is normal. No tachypnea. Breath sounds: Normal breath sounds. No decreased breath sounds, wheezing, rhonchi or rales. Abdominal: General: Abdomen is flat. Palpations: Abdomen is soft. Musculoskeletal: General: No deformity. Normal range of motion. Cervical back: Normal range of motion. Right lower leg: No tenderness. Left lower leg: Tenderness present. Comments: Left lower extremity purple up to the knee, colder to the touch than right leg, palpable dorsal pedal pulse on examination, capillary refill present, patient able to move extremity Skin: General: Skin is warm and dry. Capillary Refill: Capillary refill takes less than 2 seconds. Findings: No erythema. Comments: Mottled purple left lower extremity Neurological: General: No focal deficit present. Mental Status: She is alert and oriented to person, place, and time. Psychiatric: Mood and Affect: Mood normal. Behavior: Behavior normal. Diagnostic Testing ED Labs Ordered and Reviewed COMP METABOLIC PANEL - Abnormal; Notable for the following components: Result Value Ref Range Albumin 3.2 (*) 3.9 - 4.9 g/dL Glucose 122 (*) 74 - 99 mg/dL BUN 35 (*) 7 - 21 mg/dL Creatinine 1.14 (*) 0.58 - 0.96 mg/dL CO2 18 (*) 22 - 30 mmol/L Estimated Glomerular Filtration Rate 48 (*) >=60 mL/min/1.73m? All other components within normal limits MAGNESIUM BLD - Abnormal; Notable for the following components: Magnesium 2.4 (*) 1.7 - 2.3 mg/dL All other components within normal limits NT PRO BNP - Abnormal; Notable for the following components: NT Pro BNP 4,156 (*) <450 pg/mL All other components within normal limits HIGH SENSITIVITY TROPONIN T (INITIAL) - Abnormal; Notable (more content not included)... Normal [facility] ED PROV NOTE HNO ID: [id number] Author: Vanessa Trevizo DO Service: Emergency Medicine Author Type: Physician Type: ED Provider Notes Filed: 06/16/2022 3:23 AM Note Text: TEACHING ATTESTATION: I personally saw and examined the patient. I reviewed the resident?s note. I agree with the resident?s assessment and plan unless otherwise noted. This is an 81-year-old female seen with Dr. Torres, luis not physician, please see her note for full history and physical exam. I agree with the above without significant change. Patient presents in atrial fibrillation with rapid ventricular response as well as diagnosis of her left leg from the knee down. Patient does not have a dopplerable pulse over the left foot either dorsalis pedis or posterior tibial. Patient does not have a dopplerable popliteal pulse. Patient does have a dopplerable left femoral pulse. The skin is cyanotic from the knee down. Patient does have atrial fibrillation with rapid ventricular response. Patient will be started on heparin given concern for embolic process and pulseless left lower extremity. CTA with runoffs of the abdomen and pelvis will also be obtained. Vascular was consulted. Patient will require admission. Please see resident note for final disposition and diagnosis. Vanessa Trevizo DO 06/16/22 0323 Normal [facility] EKGon 06-16-2022 Electrocardiogram Ventricular Rate : 1 13 BPM Atrial Rate : 122 BPM QRS Duration : 100 ms Q-T Interval : 282 ms QTC Calculation(Bazett) : 386 ms Calculated R Cushing : 46 degrees Calculated T Cushing : -40 degrees ATRIAL FIBRILLATION WITH RAPID VENTRICULAR RESPONSE ABNORMAL QRS-T ANGLE, CONSIDER PRIMARY T WAVE ABNORMALITY ABNORMAL ECG NO PREVIOUS ECGS AVAILABLE Confirmed by MD LEONE CAROL ([id number]) on 06/16/2022 6:43:12 PM NAME : MEL GUADARRAMA PID : [id number] : 1940 Gender : Female Race : ORD : Procedure Date : Jun 16 2022 07:37:07 Edit Date : Jun 16 2022 18:43:17 Diagnosis: ATRIAL FIBRILLATION WITH RAPID VENTRICULAR RESPONSE ABNORMAL QRS-T ANGLE, CONSIDER PRIMARY T WAVE ABNORMALITY ABNORMAL ECG NO PREVIOUS ECGS AVAILABLE Confirmed by MD LEONE CAROL ([id number]) on 06/16/2022 6:43:12 PM Test Reason : Location : 4 : [place] [address] Overread By : MD LEONE CAROL Edited By : MD LEONE CAROL Referred By : , Acquired by : PATRICIA MOE [facility] HIGH SENSITIVITY TROPONIN T (INITIAL)on 06-16-2022 HIGH SENSITIVITY CHRISTOPHER 34 ng/L High <12 [facility] Comment on above: Order Comment: Rhina mason Type: BLOOD SPECIMENOrdering Facility: [facility] Address: [address] [place] [address] Result Comment: When assessing risk for acute coronary syndromes: In patients undergoing blood draw greater than or equal to 2 hours from symptom onset, with history of very low to moderate risk and non-ischemic ECG, an initial hs-Troponin T less than 12 ng/L AND a 1 hour delta hs-Troponin T less than 3 ng/L should be considered very low risk for 30 day MACE. Performed By: #### 3 2355-0 #### [facility] CLIA [id number] [address] STATES OF [facility] HIGH SENSITIVITY TROPONIN T (SECOND)on 06-16-2022 HIGH SENSITIVITY CHRISTOPHER 28 ng/L High <12 [facility] Comment on above: Order Comment: Rhina mason Type: BLOOD SPECIMENOrdering Facility: [facility] Address: [address] [place] [address] Result Comment: When assessing risk for acute coronary syndromes: In patients undergoing blood draw greater than or equal to 2 hours from symptom onset, with history of very low to moderate risk and non-ischemic ECG, an initial hs-Troponin T less than 12 ng/L AND a 1 hour delta hs-Troponin T less than 3 ng/L should be considered very low risk for 30 day MACE. Performed By: #### L [id number] ####[facility] LABORATORYCLIA [id number] [address] HIGH SENSITIVITY TROPONIN T (THIRD) 3 HRS AFTER INITIALon 06-16-2022 HIGH SENSITIVITY CHRISTOPHER 23 ng/L High <12 [facility] Comment on above: Order Comment: Speci men Type: BLOOD SPECIMENOrdering Facility: [facility] Address: [address] [place] [address] Result Comment: When assessing risk for acute coronary syndromes: In patients undergoing blood draw greater than or equal to 2 hours from symptom onset, with history of very low to moderate risk and non-ischemic ECG, an initial hs-Troponin T less than 12 ng/L AND a 1 hour delta hs-Troponin T less than 3 ng/L should be considered very low risk for 30 day MACE. Performed By: #### L [id number] ####[facility] LABORATORYCLIA [id number] [address] HISTORY PHYSICALon HISTORY PHYSICAL HNO ID: [id number] Author: Kristen Jones APRN.CNP Service: Hospital Medicine Author Type: Nurse Practitioner Type: HANDP Filed: 06/16/2022 1:27 PM Note Text: DEPARTMENT OF HOSPITAL MEDICINE HISTORY AND PHYSICAL EXAM SERVICE DATE: 06/16/2022 SERVICE TIME: 12:02 PM Primary Care Physician: Dr. Evans Admitting Provider: Kristen Jones APRN.CNP NIGHT AND WEEKEND COVERAGE: After 7pm, please call cross cover pager #[phone] Subjective CHIEF COMPLAINT: Left leg pain, discoloration HPI: This is a 81 year old female with a pertinent past medical history of Tobacco abuse, COPD, paroxysmal atrial fibrillation, hypothyroidism, GERD remote DVT s/p IVC filter, and recent bacterial sialadenitis who called EMS after she awoke from a nap with left leg pain, discoloration and inability to ambulate. Admitted here 05/17/22-05/25/22 for sialadenitis, discharged to home on Augmentin. States that she tested positive for COVID about 2 weeks ago. Has noted some weakness, and poor po intake for the last 10 days. Awoke from nap yesterday, noticed purplish left leg, and some pain. Crawled to the bathroom, incontinent of stool. Called EMS. In ED - Patient noted to have bedbugs. Room cleaned, patient bathed. Labs revealed potassium 4.4, co2 18, creatiine 1.14, WBC 15k. Lactic acid 2.3>1.8. Troponin 28>23. EKG atrial fib with RVR, heart rates 110s. Noted to have pulses via doppler to left leg, but left leg with purple discoloration, edema and warmth. US positive for acute proximal DVT in the left lower extremity involving all veins with essentially occlusive thrombus. Positive study for superficial thrombophlebitis in the imaged segments of the left lower extremity involving the visualized segments of the greater and small saphenous veins. CTA with run off showed Occlusion of the left superficial femoral artery and left proximal and mid popliteal artery, with reconstitution of flow in the distal popliteal artery. Diminished caliber of the left anterior tibial artery with distal occlusion. Given Heparin bolus and gtt at 1300u/hr. Also noted to to have bilateral lower lobe pulmonary infiltrates and leukocytosis, Zosyn initiated. Vascular surgery evaluated patient and plan for medical admission with Vascular consult, thrombectomy planned for today. Given Fentanyl and Dilaudid for pain, 1L NS, and 500cc LR. Seen in ED 19. Alert pleasant and cooperative. Left leg pain improved with pain medication. Lives in trailer home, with her dog. Independent with ADLs, drove prior to recent hospitalization. Assisted patient to call neighbors to care for her dog. Denies history of atrial fib or bleeding issues in the past, althought her medical record shows she has chronic vs PAF, previously on Coumadin at one time. Unclear when she last took anticoagulation. Please note this patient has 2 charts. Mel Garcia [id number] and Mel Castillo [id number]. PAST MEDICAL HISTORY Diagnosis Date Acute bacterial sialadenitis Chronic atrial fibrillation (HCC) GERD (gastroesophageal reflux disease) HTN (hypertension) Hypothyroidism PAST SURGICAL HISTORY Procedure Laterality Date DANDC, DIAG AND/OR THERAPEUTIC TOTAL ABDOM HYSTERECTOMY FAMILY HISTORY Problem Relation Age of Onset Lung Cancer Father Cancer Brother Social History Tobacco Use Smoking status: Every Day Packs/day: 0.50 Years: 50.00 Pack years: 25.00 Types: Cigarettes Smokeless tobacco: Never Substance Use Topics Alcohol use: Not Currently Drug use: Never HOME MEDICATIONS: (Not in a hospital admission) ALLERGIES Allergen Reactions Percocet [Oxycodone* Itching REVIEW OF SYSTEM: Constitutional: Denies fever or chills HEENT: Denies nasal congestion or sore throat Respiratory: + productive cough, sputum clear yellow Cardiovascular: Denies chest pain Gastrointestinal: + diarrhea x 1 [employer] Genitourinary: Denies dysuria Musculoskeletal: + left leg pain Integumentary: Denies rash Neurologic: Denies headache, focal weakness or sensory changes All systems review and negative unless noted above or in HPI. Objective PHYSICAL EXAM: BP 116/60 Pulse 103 Temp 97.7 Resp 13 Ht 5' 4" (1.63m) Wt 160 lb (72.6kg) SpO2 98% BMI 27.45 kg/(m2). O2 Therapy: Nasal Cannula, Liters: 2 GENERAL:Elderly female lying on ED in NAD SKIN: see extremities, and ecchymotic area left abdominal wall HEAD: Normocephalic, atraumatic EYES: Anicteric sclera. Pupils are equally round and reactive to light. Extraocular movements are intact. EARS: External ears normal, canals clear NOSE/SINUSES: Nares normal, septum midline, mucosa normal, no drainage or sinus tenderness OROPHARYNX: Lips, mucosa, and tongue normal, teeth and gums normal, oropharynx normal NECK: Supple, no adenopathy; thyroid symmetric, normal size, no bruits LUNGS: Clear to auscultation diminished in bases with mild expiratory wheezes, no rales or rh (more content not included)... Normal [facility] Magnesium SerPl-mCncon 06-16 Magnesium [Mass/Vol] 2.4 mg/dL High 1.7-2.3 [facility] Comment on above: Order Comment: Speci men Type: BLOOD SPECIMENOrdering Facility: [facility] Address: [address] [place] [address] [place] [address] Performed By: #### 3 5569-8, 94910-9, 34451-1, 49500-8 ####[facility] LABORATORYCLIA [id number] [address] NT-proBNP [facility] 06-16 Natriuretic peptide.B prohormone N-Terminal [Mass/Vol] 4156 pg/mL High <450 [facility] Comment on above: Order Comment: Rhina mason Type: BLOOD SPECIMEN [facility] Address: [address] [place] [address] Performed By: #### T SCR #### [facility] CLIA [id number] [address] OF [facility] NURSING PROGon 06-16-2022 NURSING PROG HNO ID: [id number] Author: Kayden José RN Service: Trauma Author Type: Registered Nurse Type: Nursing Progress Note Filed: 06/16/2022 4:27 PM Note Text: Other: O.R. NURSES NOTE PT CAME TO THE OPERATING ROOM WITH A SEALED RED BAG OF CLOTHING, WELL HAS HER GLASSES AND DENTURES.SHE ALSO HAD A WALLET, CELL PHONE, NECKLACE AND 5-6 RINGS. ALL BELONGINGS WHERE PACKED TOGETHER AND PT LABELED. ALL BELONGINGS WHERE SENT WITH PT TO THE UNIT AND HANDED TO THE RECEIVING NURSE. NIKKY FRAGA. Normal [facility] PT panel Coag (PPP)on 2021 INR Coag (PPP) [Relative time] 1.1 {INR} Normal 0.9-1.3 [facility] Comment on above: Order Comment: Rhina mason Type: BLOOD SPECIMENOrdering Facility: [facility] Address: [address] [place], [place] [id number] Result Comment: Mayra min K Antagonist (VKA) Therapeutic Range: INR 2 to 3 (Target INR of 2.5) Note: For patients treated with VKA drugs, such as warfarin, the [place] [employer] 2012 Guideline recommends a therapeutic INR range of 2 to 3 (target INR of 2.5). This recommendation includes high-risk patients with antiphospholipid syndrome with previous arterial or venous thromboembolism, current-generation mechanical or bioprosthetic aortic heart valve replacement. Note: Patients with mechanical aortic valve replacement and additional risk factors for thromboembolic events (atrial fibrillation, previous thromboembolism, LV dysfunction, hypercoagulable conditions) or an older generation mechanical AVR (i.e., ball in-Cage) or any mechanical MVR should have a INR therapeutic range of 2.5 to 3.5 (target INR of 3). Louise GH, et al. Chest 2012, 141:7S-47S Daren RA, et al. [facility] 2017, 70: 252-289 Performed By: #### 3 4528-0, 91235-5 ####[facility] LABORATORYCLIA [id number] [address] OF [facility] PT Coag (PPP) [Time] 11.3 s Normal 9.7-13.0 [facility] Comment on above: Order Comment: Specrobson mason Type: BLOOD SPECIMENOrdering Facility: [facility] Address: [address] [place] [address] Performed By: #### 3 4528-0, 73292-5 ####[facility] LABORATORYCLIA [id number] [address] [facility] 08-16-2021 Procalcitonin [Mass/Vol] 0.19 ng/mL High <0.09 [facility] Comment on above: Order Comment: Rhina [facility] Type: BLOOD SPECIMEN [facility] Address: [address] [place] [address] Result Comment: For a guided interpretation of test results, please visit the Change in Procalcitonin Calculator, [email or web address]. Performed By: #### T SCR #### [facility] CLIA [id number] [address] SARS-CoV-2 RNA Resp Ql OXANA+p robeon 06-16-2022 SARS-CoV-2 (COVID-19) RNA OXANA+probe Ql (Resp) COVID 19 RESULT: SARS-CoV-2 (Agent of COVID-19) Detected by RT-PCR or equivalent method. This test has been authorized by FDA under an Emergency Use Authorization (EUA). Normal [facility] Comment on above: Performed By: #### 9 4500-6 #### [facility] CLIA [id number] [address] [id number] [place] US DVT LOWER LTon 06-16-2022 US DVT LOWER LT * * *Final Report* * * DATE OF EXAM: Jun 16 2022 5:04AM AKU 1006 - US DVT LOWER LT / PROCEDURE REASON: DVT SUSPECTED * * * * Physician Interpretation * * * * EXAMINATION: LEFT LOWER EXTREMITY DEEP VENOUS ULTRASOUND WITH DOPPLER IMAGING CLINICAL HISTORY: Adult ER patient presented with TECHNIQUE: Grayscale with compression maneuvers, color Doppler and spectral Doppler imaging of the left proximal deep veins was performed. Grayscale with compression maneuvers of the peroneal and posterior tibial veins was performed. The left great and small saphenous veins were evaluated at their insertion to the deep system. The contralateral common femoral vein was imaged for comparison. Images were obtained and stored in a permanent archive. MQ: [id number] COMPARISON: None RESULT: LEFT LOWER EXTREMITY PROXIMAL DEEP VEINS Distal External Iliac, Common Femoral and proximal Profunda Veins: Compression: Abnormal Doppler: Abnormal, near absent spontaneous flow. Femoral vein: Compression: Abnormal Doppler: Abnormal, absent spontaneous flow. Popliteal vein: Compression: Abnormal Doppler: Abnormal, absent spontaneous flow. CALF DEEP VEINS: The calf veins are not imaged due to the patient's pain condition. Peroneal veins: Not identified. Posterior tibial veins: Not identified. Gastrocnemius and Soleal veins: Not imaged. SUPERFICIAL VEINS Great saphenous: Abnormal compression. Small Saphenous: Abnormal compression. RIGHT LOWER EXTREMITY (FOR COMPARISON) Common Femoral Vein: Compression: Normal Doppler: Normal, spontaneous respirophasic flow. Normal response to augmentation. IMPRESSION: Positive study for acute proximal DVT in the left lower extremity involving all veins with essentially occlusive thrombus. Nondiagnostic study for calf DVT in the left lower extremity. Positive study for superficial thrombophlebitis in the imaged segments of the left lower extremity involving the visualized segments of the greater and small saphenous veins. URGENT RESULTS Acuity: Urgent Communication: Communicated with Larissa Torres MD on 0516 via verbal communication. Manager Hris: DEVEN Transcribe Date/Time: Jun 16 2022 5:07A Dictated by : SKIP NOEL MD This examination was interpreted and the report reviewed and electronically signed by: SKIP NOEL MD on Jun 16 2022 5:17AM EST [id number] Normal [facility] aPTT PPPon 06-16-2022 aPTT Coag (PPP) [Time] 74.2 s High 23.0-32.4 [facility] Comment on above: Order Comment: Speci men Type: BLOOD SPECIMENOrdering Facility: [facility] Address: [address] [place] [address] Performed By: #### 1 4979-9 ####[facility] LABORATORYCLIA [id number] [address] aPTT Coag (PPP) [Time] 134.7 s High 23.0-32.4 [facility] Comment on above: Order Comment: Speci men Type: BLOOD SPECIMENOrdering Facility: [facility] Address: [address] [place] [address] Performed By: #### 1 4979-9 ####[facility] LABORATORYCLIA [id number] [address] aPTT Coag (PPP) [Time] s High 23.0-32.4 [facility] Comment on above: Order Comment: Speci men Type: BLOOD SPECIMENOrdering Facility: [facility] Address: [address] [place] [address] Performed By: #### 1 4979-9 ####[facility] LABORATORYCLIA [id number] [address] aPTT Coag (PPP) [Time] 21.7 s Low 23.0-32.4 [facility] Comment on above: Order Comment: Speci men Type: BLOOD SPECIMENOrdering Facility: [facility] Address: [address] [place] [address] Performed By: #### 3 4528-0, 59917-7 ####[facility] LABORATORYCLIA [id number] [place] [address] CULTURE AND STAIN - TISSUEon 03-10-2020 CULTURE AND STAIN - TISSUE 1 Organism Staphylococcus aureus Rare 1 Organism Antibiotic Result Intrp Nafcillin/Oxacillin(AGATA ) = 0.5 S Inducible Clindamycin Resistant(AGATA)Neg Neg Clindamycin(AGATA) = 0.25 S Vancomycin(AGATA) <= 0.5 S Trimeth/Sulfa(AGATA) <= 10 S Linezolid(AGATA) = 2 S Daptomycin(AGATA) = 0.25 S Gentamicin(AGATA) <= 0.5 S Doxycycline(AGATA) <= 0.5 S Tigecycline(AGATA) <= 0.12 S Rifampin(AGATA) <= 0.5 S Normal [facility] Comment on above: Performed By: #### C XTIS #### [address] [id number] #### C/DAMIÁN #### [address] CR Finger(s) Min 2 Views Rig hton 03-07-2020 CR Finger(s) Min 2 Views Right Patient Name: MEL POP Diagnostic Radiology Exam Date/Time 03/06/2020 10:30:00 EDT Exam CR Finger(s) Min 2 Views Right Ordering Physician GUSTAVOMD JOHN DEREK J Accession Number [id number] CPT4 Codes 69154 () Reason For Exam pain Report Right hand attention second finger CLINICAL INDICATION: Pain. Follow-up to burn. PA view of the hand and coned-down oblique and lateral views of the right second digit were obtained. There is soft tissue swelling particularly at the distal aspect of the second finger and there is a soft tissue irregularity at the distal tip of the finger. The distal phalanx of the second digit is fractured with comminution and articular involvement of the base of the distal phalanx. The shaft of the tuft also are demineralized, concerning for osteomyelitis. IMPRESSION: Comminuted fracture of the distal phalanx of the right second digit with demineralization of the distal phalanx concerning for osteomyelitis A notification was communicated to JAYLA MCMAHAN via the [employer] Critical Result system on 03/07/2020 8:07 PM EDT, Message ID [id number]. Report Dictated on Final Dictating Physician: MD PERRY DIANE Signed Date and Time: 03/07/2020 8:07 pm Signed by: MD PERRY DIANE Transcribed Date and Time: 03/07/2020 8:08 Normal [facility] CULTURE ANAEROBEon 0 CULTURE ANAEROBE CULTURE ANAEROBE --> Status: F No growth of anaerobes at 5 days. STAIN GRAM --> Status: F Few polymorphonuclear cells/lpf. No organisms seen. No organisms seen. Normal [facility] Comment on above: Performed By: #### C XTIS #### [address] [id number] [id number] #### C/DAMIÁN #### [address] Vital Signs Date Time Vital Sign Value Performing Clinician Facility 12-24-2024 14:45-0400 Body mass index (BMI) [Ratio] 27.1 kg/m2 Kristyn Blankenship MD Work Phone: [facility] 12-24-2024 14:45-0400 Body weight 69.4 kg Kristyn Blankenship MD Work Phone: [facility] 12-05-2024 10:20-0400 Body height 160 cm Kristyn Blankenship MD Work Phone: [facility] 12-05-2024 10:20-0400 Body mass index (BMI) [Ratio] 29.23 kg/m2 Kristyn Blankenship MD Work Phone: [facility] 12-05-2024 10:20-0400 Body weight 74.84 kg Kristyn Blankenship MD Work Phone: [facility] 12-05-2024 10:20-0400 Diastolic blood pressure 78 mm[Hg] Kristyn Blankenship MD Work Phone: [facility] 12-05-2024 10:20-0400 Heart rate 78 /min Kristyn Blankenship MD Work Phone: [facility] 12-05-2024 10:20-0400 Respiratory rate 18 /min Kristyn Blankenship MD Work Phone: [facility] 12-05-2024 10:20-0400 SaO2% (BldA) [Mass fraction] 94 % Kristyn Blankenship MD Work Phone: [facility] 12-05-2024 10:20-0400 Systolic blood pressure 102 mm[Hg] Kristyn Blankenship MD Work Phone: [facility] 11-22-2024 13:45-0400 Diastolic blood pressure 54 mm[Hg] Kristyn Blankenship MD Work Phone: [facility] 11-22-2024 13:45-0400 Heart rate 58 /min Kristyn Blankenship MD Work Phone: [facility] 11-22-2024 13:45-0400 Respiratory rate 18 /min Kristyn Blankenship MD Work Phone: [facility] 11-22-2024 13:45-0400 SaO2% (BldA) [Mass fraction] 95 % Kristyn Blankenship MD Work Phone: [facility] 11-22-2024 13:45-0400 Systolic blood pressure 139 mm[Hg] Kristyn Blankenship MD Work Phone: [facility] 11-22-2024 13:15-0400 Body temperature 97.11 [degF] Kristyn Blankenship MD Work Phone: [facility] 11-22-2024 08:25-0400 Body height 160 cm Kristyn Blankenship MD Work Phone: [facility] 11-22-2024 08:25-0400 Body mass index (BMI) [Ratio] 29.23 kg/m2 Kristyn Blankenship MD Work Phone: [facility] 11-22-2024 08:25-0400 Body weight 74.84 kg Kristyn Blankenship MD Work Phone: [facility] 11-05-2024 15:42-0400 Body height 160 cm Kristyn Blankenship MD Work Phone: [facility] 11-05-2024 15:42-0400 Body mass index (BMI) [Ratio] 29.23 kg/m2 Kristyn Blankenship MD Work Phone: [facility] 11-05-2024 15:42-0400 Body weight 74.84 kg Kristyn Blankenship MD Work Phone: [facility] 11-05-2024 15:42-0400 Diastolic blood pressure 64 mm[Hg] Kristyn Blankenship MD Work Phone: [facility] 11-05-2024 15:42-0400 Heart rate 65 /min Kristyn Blankenship MD Work Phone: [facility] 11-05-2024 15:42-0400 Respiratory rate 18 /min Kristyn Blankenship MD Work Phone: [facility] 11-05-2024 15:42-0400 SaO2% (BldA) [Mass fraction] 98 % Kristyn Blankenship MD Work Phone: [facility] 11-05-2024 15:42-0400 Systolic blood pressure 122 mm[Hg] Kristyn Blankenship MD Work Phone: [facility] 08-22-2024 10:32-0500 Body height 160 cm Henok Darlyn PA-C Work Phone: [employer] 08-22-2024 10:32-0500 Body mass index (BMI) [Ratio] 29.23 kg/m2 Henok Walkeron PA-C Work Phone: [employer] 08-22-2024 10:32-0500 Body weight 74.84 kg Henok Walkeron PA-C Work Phone: [employer] 08-22-2024 10:32-0500 Diastolic blood pressure 62 mm[Hg] Henok Walkeron PA-C Work Phone: [employer] 08-22-2024 10:32-0500 Respiratory rate 18 /min Henok Walkeron PA-C Work Phone: [employer] 08-22-2024 10:32-0500 Systolic blood pressure 104 mm[Hg] Henok Walkeron PA-C Work Phone: [employer] 08-16-2024 07:19-0500 Body temperature 97.59 [degF] Mariana King DO Work Phone: [employer] 08-16-2024 07:19-0500 Diastolic blood pressure 66 mm[Hg] Mariana King DO Work Phone: [employer] 08-16-2024 07:19-0500 Heart rate 85 /min Mariana King DO Work Phone: [employer] 08-16-2024 07:19-0500 Respiratory rate 18 /min Mariana King DO Work Phone: [employer] 08-16-2024 07:19-0500 SaO2% (BldA) [Mass fraction] 94 % Mariana King DO Work Phone: [employer] 08-16-2024 07:19-0500 Systolic blood pressure 135 mm[Hg] Mariana King DO Work Phone: [employer] 08-03-2024 08:32-0500 Body height 162 cm Mariana King DO Work Phone: [employer] 08-03-2024 08:32-0500 Body mass index (BMI) [Ratio] 28.58 kg/m2 Mariana King DO Work Phone: [employer] 08-03-2024 08:32-0500 Body weight 75 kg Mariana King DO Work Phone: [employer] 07-07-2024 06:03-0500 Body temperature 97.7 [degF] Wm Aracelirakola DO Work Phone: [employer] 07-07-2024 06:03-0500 Diastolic blood pressure 67 mm[Hg] Wm Aracelirakola DO Work Phone: [employer] 07-07-2024 06:03-0500 Heart rate 69 /min Wm Aracelirakola DO Work Phone: [employer] 07-07-2024 06:03-0500 Respiratory rate 12 /min Wm Alexandrekola DO Work Phone: [employer] 07-07-2024 06:03-0500 SaO2% (BldA) [Mass fraction] 94 % Wm Aracelirakola DO Work Phone: [employer] 07-07-2024 06:03-0500 Systolic blood pressure 149 mm[Hg] Wm Aracelirakola DO Work Phone: [employer] 07-05-2024 10:00-0500 Body height 162.6 cm Wm Alexandrekola DO Work Phone: [employer] 07-05-2024 10:00-0500 Body mass index (BMI) [Ratio] 27.46 kg/m2 Wm Aracelirakola DO Work Phone: [employer] 07-05-2024 10:00-0500 Body weight 72.58 kg Wm Aracelirakola DO Work Phone: [employer] 05-14-2024 15:34-0400 Body height 162.6 cm Jared Evans MD Work Phone: [employer] 05-14-2024 15:34-0400 Body mass index (BMI) [Ratio] 25.23 kg/m2 Jared Evans MD Work Phone: [facility] 05-14-2024 15:34-0400 Body weight 66.68 kg Jared Evans MD Work Phone: [facility] 04-25-2024 13:39-0400 Body height 162.6 cm Henok Hernandez PA-C Work Phone: [facility] 04-25-2024 13:39-0400 Body mass index (BMI) [Ratio] 25.23 kg/m2 Henok Hernandez PA-C Work Phone: [employer] [facility] 04-25-2024 13:39-0400 Body weight 66.68 kg Henok Hernandez PA-C Work Phone: [facility] 04-25-2024 13:39-0400 Diastolic blood pressure 66 mm[Hg] Henok Hernandez PA-C Work Phone: [facility] 04-25-2024 13:39-0400 Heart rate 98 /min Henok Hernandez PA-C Work Phone: [employer] [facility] 04-25-2024 13:39-0400 Respiratory rate 18 /min Henok Hernandez PA-C Work Phone: [facility] 04-25-2024 13:39-0400 SaO2% (BldA) [Mass fraction] 95 % Henok Hernandez PA-C Work Phone: [facility] 04-25-2024 13:39-0400 Systolic blood pressure 110 mm[Hg] Henok Hernandez PA-C Work Phone: [facility] 04-13-2024 08:04-0400 Heart rate 92 /min Winifred Cornell DO Work Phone: [employer] [facility] 04-13-2024 07:49-0400 Body temperature 97.2 [degF] Winifred Huertasffey DO Work Phone: [facility] 04-13-2024 07:49-0400 Diastolic blood pressure 89 mm[Hg] Winifred Cornell DO Work Phone: [employer] 04-13-2024 07:49-0400 Respiratory rate 20 /min Winifred Cornell DO Work Phone: [employer] 04-13-2024 07:49-0400 SaO2% (BldA) [Mass fraction] 98 % Winifred Cornell DO Work Phone: [employer] 04-13-2024 07:49-0400 Systolic blood pressure 156 mm[Hg] Winifred Cornell DO Work Phone: [employer] 04-03-2024 17:52-0400 Body height 162.6 cm Winifred Cornell DO Work Phone: [employer] 04-03-2024 17:52-0400 Body mass index (BMI) [Ratio] 27.38 kg/m2 Winifred Cornell DO Work Phone: [employer] 04-03-2024 17:52-0400 Body weight 72.35 kg Winifred Cornell DO Work Phone: [employer] 07-27-2023 14:23-0500 Body height 162.6 cm Ming Weinberg MD Work Phone: [employer] [facility] 07-27-2023 14:23-0500 Body mass index (BMI) [Ratio] 27.29 kg/m2 Ming Weinberg MD Work Phone: [employer] 07-27-2023 14:23-0500 Body weight 72.12 kg Ming Weinberg MD Work Phone: [facility] 05-14-2022 15:01-0400 Diastolic blood pressure 84 mm[Hg] Jared Velazquez PA-C Work Phone: [facility] 05-14-2022 15:01-0400 Systolic blood pressure 154 mm[Hg] Jared ARIZMENDI-C Work Phone: [facility] 05-14-2022 14:32-0400 Body height 162.6 cm Jared Velazquez PA-C Work Phone: [facility] 05-14-2022 14:32-0400 Body weight 72.58 kg Jared Velazquez PA-C Work Phone: [facility] 05-14-2022 14:32-0400 Heart rate 71 /min Jared Velazquez PA-C Work Phone: [facility] 05-14-2022 14:32-0400 Respiratory rate 16 /min Jared Velazquez PA-C Work Phone: [facility] 05-14-2022 14:32-0400 SaO2% (BldA) [Mass fraction] 98 % Jared Velazquez PA-C Work Phone: [facility] 03-07-2020 09:57-0400 Body Temperature 98.71 [degF] [facility]la [facility] [place] 03-07-2020 09:57-0400 BP Diastolic 64 mm[Hg] Jayla [facility] [place] [facility] [place] 03-07-2020 09:57-0400 BP Systolic 161 mm[Hg] Jayla [facility] [place] [facility] [place] 03-07-2020 09:57-0400 Pulse (Heart Rate) 77 /min Jayla [facility] [place] 03-07-2020 09:57-0400 Pulse Oximetry 96 % Jayla [employer] [place] , [place] 03-07-2020 08:32-0400 Respiratory Rate 14 /min [facility] [place] 02-08-2020 20:50-0400 Body Temperature 97.5 [degF] [facility] [place] 02-08-2020 20:50-0400 BP Diastolic 81 mm[Hg] Maryuri [employer] [facility] [place] [facility] [place] 02-08-2020 20:50-0400 BP Systolic 193 mm[Hg] [facility] [place] [facility] [place] 02-08-2020 20:50-0400 Pulse (Heart Rate) 68 /min [facility] [place] 02-08-2020 20:50-0400 Pulse Oximetry 97 % [facility] [place] , [place] 02-08-2020 20:50-0400 Respiratory Rate 16 /min Maryuri King [facility] [place], [place] Encounters Encounter Date Encounter Type Care Provider Facility Start: 01-23-2025 ambulatory Megan EVERETT Faci lity:[facility] Start: 01-22-2025 ambulatory Megan EVERETT Faci lity:[facility] Start: 01-21-2025 ambulatory Megan EVERETT Faci lity:[facility] Start: 01-17-2025 ambulatory Megan EVERETT Faci lity:[facility] Start: 01-16-2025 ambulatory Megan EVERETT Faci lity:[facility] Start: 01-15-2025 ambulatory Megan EVERETT Faci lity:[facility] Start: 01-07-2025 ambulatory Megan EVERETT Faci lity:[facility] Start: 01-02-2025 End: 01-02-2025 Orders Only Namrata Christensen [facility] Comment on above: 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) Right retinal detach ment (Primary Dx); Hemorrhagic choroidal detachment of right eye; Pseudophakia, right eye Start: 12-24-2024 End: 12-24-2024 ambulatory KRISTYN BLANKENSHIP [facility] Start: 12-24-2024 End: 12-24-2024 Office outpatient visit 15 minutes Kristyn Blankenship MD Work Phone: [facility] [place] Comment on above: Aftercare following surgery of the circulatory system (Primary Dx); PAD (peripheral artery disease) (HCC) Start: 12-13-2024 End: 12-13-2024 ambulatory MEGAN MONTOYA [facility] Start: 12-13-2024 End: 12-13-2024 Subsequent hospital visit by physician Kristyn Blankenship MD Work Phone: [facility] Comment on above: Skin ulcer of toe of right foot, limited to breakdown of skin (HCC); PAD (peripheral artery disease) (HCC); Aftercare following surgery of the circulatory system Start: 12-05-2024 End: 12-05-2024 ambulatory JARED EVANS [facility] Start: 12-05-2024 End: 12-05-2024 Office outpatient visit 10 minutes [facility] Comment on above: Skin ulcer of toe of right foot, limited to breakdown of skin (HCC) (Primary Dx); PAD (peripheral artery disease) (HCC); Aftercare following surgery of the circulatory system Start: 11-22-2024 End: 11-22-2024 ambulatory [facility] Start: 11-22-2024 End: 11-22-2024 Subsequent hospital visit by physician Kristyn Blankenship MD Work Phone: [facility] Start: 11-15-2024 End: 11-15-2024 ambulatory Megan EVERETT Facility:[facility] Start: 11-09-2024 End: 11-13-2024 ambulatory Henok ARIZMENDI-C [facility] Comment on above: 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) (Primary Dx) Pre-op evaluation (P rimary Dx) Start: 11-09-2024 End: 11-13-2024 Preprocedural examination done gumi Work Phone: [employer] Work Phone: Start: 11-05-2024 End: 11-05-2024 ambulatory [facility] Start: 11-05-2024 End: 11-05-2024 Office outpatient visit 25 minutes Kristyn Blankenship MD Work Phone: [facility] Comment on above: PAD (peripheral aidee ry disease) (HCC) (Primary Dx); Skin ulcer of toe of right foot, limited to breakdown of skin (HCC) Start: 10-08-2024 End: 10-08-2024 ambulatory Megan EVERETT [facility] Work Phone: Start: 10-08-2024 End: 10-08-2024 Departed Referred Megan Montoya [facility] [employer] [facility] Start: 10-08-2024 Registered Referred Megan Montoya [facility] [employer] Start: 10-08-2024 End: 10-08-2024 ambulatory Megan EVERETT Facility:[facility] Start: 10-01-2024 End: 10-01-2024 Patient encounter procedure Savana Lopez MD Work Phone: Ophthalmology Comment on above: 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); Right retinal detachment; Postoperative eye state; Pseudophakia, right eye; Subluxation of right lens Start: 10-01-2024 End: 10-01-2024 ambulatory SAVANA LOPEZ Facility:[facility] Start: 09-17-2024 End: 09-17-2024 ambulatory Megan EVERETT [facility] Work Phone: Start: 09-17-2024 End: 09-17-2024 Departed Referred Megan Montoya [employer] Start: 09-17-2024 Registered Referred Megan Montoya [employer] Start: 09-17-2024 End: 09-17-2024 ambulatory Megan EVERETT Facility:[facility] Start: 09-10-2024 End: 09-10-2024 ambulatory Megan EVERETT [facility] Work Phone: Start: 09-10-2024 End: 09-10-2024 Departed Referred Megan [facility] [employer] Start: 09-10-2024 Registered Referred Megan Montoya [employer] Start: 09-10-2024 End: 09-10-2024 ambulatory Megan EVERETT Facility:[facility] Start: 09-05-2024 End: 09-05-2024 ambulatory SAVANA LOPEZ Facility:[facility] Start: 09-05-2024 End: 09-05-2024 Patient encounter procedure Savana Lopez MD Work Phone: Ophthalmology Comment on above: Postoperative eye st ate; Hemorrhagic choroidal detachment of right eye; Pseudophakia, right eye; Subluxation of right lens Start: 09-03-2024 End: 09-03-2024 ambulatory Megan EVERETT [facility] Work Phone: Start: 09-03-2024 End: 09-03-2024 Departed Referred Megan BISWAS Start: 09-03-2024 Registered Referred Megan BISWAS Start: 09-03-2024 End: 09-03-2024 ambulatory Megan EVERETT Facility:[facility] Start: 08-22-2024 End: 08-22-2024 ambulatory [facility] Start: 08-22-2024 End: 08-22-2024 Office outpatient visit 15 minutes Henok Santizo PA-C Work Phone: [facility] [place] Comment on above: Acute deep vein thro mbosis (DVT) of iliac vein of right lower extremity (HCC) (Primary Dx); PAD (peripheral artery disease) (HCC) Start: 08-20-2024 End: 08-20-2024 ambulatory Megan EVERETT [facility] Work Phone: Start: 08-20-2024 End: 08-20-2024 Departed Referred Megan BISWAS Start: 08-20-2024 End: 08-20-2024 ambulatory Megan EVERETT Facility:[facility] Start: 08-03-2024 End: 08-03-2024 Subsequent hospital visit by physician [facility] Exam Room [address] [facility] [address] Comment on above: Arrived Start: 08-03-2024 End: 08-16-2024 ambulatory [facility] Start: 08-03-2024 End: 08-16-2024 Emergency department patient visit Mariana King DO Work Phone: [facility] Comment on above: Aspiration pneumonit is (CMS/HCC) (HCC) (Primary Dx); Vomiting and diarrhea; LORENZA (acute kidney injury) (HCC) Start: 08-01-2024 End: 08-01-2024 ambulatory SAVANA LOPEZ Facility:[facility] Start: 08-01-2024 End: 08-01-2024 Patient encounter procedure Savana Lopez MD Work Phone: Ophthalmology Comment on above: Postoperative eye st ate; Hemorrhagic choroidal detachment of right eye; Pseudophakia, right eye; Subluxation of right lens Start: 07-27-2024 End: 07-27-2024 Postop follow up visit related to original px [facility] Work Phone: Ophthalmology Comment on above: Post-operative state (Primary Dx) Start: 07-27-2024 ambulatory SAVANA A MAMMO Facility: [facility] Start: 07-23-2024 End: 07-23-2024 ambulatory SAVANA A MAMMO Facility:[facility] Start: 07-23-2024 End: 07-23-2024 Patient encounter procedure Savana Lopez MD Work Phone: Ophthalmology Comment on above: Postoperative eye st ate; Hemorrhagic choroidal detachment of right eye; Pseudophakia, right eye; Subluxation of right lens Start: 07-16-2024 End: 07-16-2024 Evaluation and management of inpatient Savana Lopez MD Work Phone: Ophthalmology Comment on above: Postoperative eye st ate (Primary Dx); Hemorrhagic choroidal detachment of right eye; Pseudophakia, right eye; Subluxation of right lens Start: 07-12-2024 End: 07-12-2024 Evaluation and management of inpatient SELF Facility:[facility] Start: 07-12-2024 End: 07-12-2024 Orders Only Namrata DE LA TORRE Ophthalmology Comment on above: 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); Dislocation of intraocular lens, initial encounter Start: 07-12-2024 End: 07-12-2024 Unlisted evaluation and management service John Phelan MD Work Phone: Ophthalmology Comment on above: 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) Start: 07-09-2024 End: 07-09-2024 Evaluation and management of inpatient SELF Facility:[facility] Start: 07-09-2024 End: 07-09-2024 Unlisted evaluation and management service John Phelan MD Work Phone: Ophthalmology Comment on above: 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) Start: 07-07-2024 End: 07-07-2024 Patient encounter procedure Tatyana Johnson MD Work Phone: Ophthalmology Comment on above: 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); Dislocation of intraocular lens, initial encounter Start: 07-07-2024 End: 07-18-2024 Evaluation and management of inpatient RED HENDERSON Facility:[facility] Start: 07-07-2024 Emergency department patient visit PROVIDER NOT IN SYSTEM Facility:[facility] Start: 07-06-2024 End: 07-06-2024 Telephone encounter Ryan Elizondo MD Work Phone: Ophthalmology Start: 07-05-2024 End: 07-07-2024 ambulatory [facility] Start: 07-05-2024 End: 07-07-2024 Emergency department patient visit Wm Des DO Work Phone: [facility] Trauma Neuro Progressive Care Unit PCU 3W Comment on above: Vision loss of right eye (Primary Dx); Acute intractable headache, unspecified headache type; Visual disturbance, subjective Start: 06-19-2024 End: 07-03-2024 ambulatory DEVIKA LEUNG Facility:[facility] Start: 06-19-2024 End: 07-03-2024 Subsequent hospital visit by physician Devika Leung DO Work Phone: [facility] Comment on above: [I63.9] - Cerebral i nfarction Start: 06-10-2024 End: 06-19-2024 Evaluation and management of inpatient TORSTEN Simran KEMPSHIRA Facility:[facility] Start: 05-22-2024 End: 05-22-2024 ambulatory [facility] Start: 05-21-2024 End: 05-21-2024 ambulatory [facility] Start: 05-21-2024 End: 05-21-2024 Anticoagulant drug monitoring Harmony Grey [facility] Work Phone: [facility] Anticoagulation Management Service Comment on above: Atrial fibrillation, unspecified type (HCC); Acute venous embolism and thrombosis of deep vessels of proximal end of right lower extremity (HCC) Start: 05-14-2024 End: 05-14-2024 Subsequent hospital visit by physician Jared Evans MD Work Phone: [facility] Non-Invasive Cardiology Comment on above: Paroxysmal atrial fi brillation (HCC) Start: 05-14-2024 End: 05-14-2024 ambulatory [facility] Start: 05-09-2024 End: 05-09-2024 [facility] Start: 05-09-2024 End: 05-09-2024 Anticoagulant drug monitoring Patty Duggan [facility] Work Phone: [facility] Anticoagulation Management Service Comment on above: Atrial fibrillation, unspecified type ([facility]); Acute venous embolism and thrombosis of deep vessels of proximal end of right lower extremity ([facility]) Start: 05-01-2024 End: 05-01-2024 [facility] Start: 05-01-2024 End: 05-01-2024 Anticoagulant drug monitoring Won Tipton RN [facility] Anticoagulation Management Service Comment on above: Atrial fibrillation, unspecified type ([facility]); Acute venous embolism and thrombosis of deep vessels of proximal end of right lower extremity (HCC) Start: 04-27-2024 End: 04-27-2024 Refill Phyllis Aguilera RN Work Phone: [facility] Anticoagulation Management Service Comment on above: Deep vein thrombosis (DVT) of lower extremity, unspecified chronicity, unspecified laterality, unspecified vein (HCC); Atrial fibrillation, unspecified type (HCC); Acute venous embolism and thrombosis of deep vessels of proximal end of right lower extremity (HCC) Start: 04-25-2024 End: 04-25-2024 Office outpatient visit 15 minutes Henok Hernandez PA-C Work Phone: [facility] Comment on above: Acute deep vein thro mbosis (DVT) of iliac vein of right lower extremity (HCC) (Primary Dx); PAD (peripheral artery disease) (HCC) Start: 04-25-2024 End: 04-25-2024 ambulatory HENOK SANTIZO [facility] Start: 04-23-2024 End: 04-23-2024 ambulatory [facility] Start: 04-20-2024 End: 07-20-2024 Transcribe Orders Jared Evans MD Work Phone: [facility] Central Scheduling Comment on above: Paroxysmal atrial fi brillation (HCC) (Primary Dx) Start: 04-19-2024 End: 04-19-2024 ambulatory JARED EVANS [facility] Start: 04-19-2024 End: 04-19-2024 Anticoagulant drug monitoring Marybeth Rahman [facility] Anticoagulation Management Service Comment on above: Atrial fibrillation, unspecified type (HCC); Acute venous embolism and thrombosis of deep vessels of proximal end of right lower extremity (HCC) Start: 04-16-2024 End: 04-16-2024 ambulatory ANTHONY YEE [facility] Start: 04-14-2024 End: 04-14-2024 Anticoagulant drug monitoring Ulices Orr PharmD [facility] Pharm[facility] Comment on above: Deep vein thrombosis (DVT) of lower extremity, unspecified chronicity, unspecified laterality, unspecified vein (HCC) (Primary Dx) Start: 04-03-2024 End: 04-13-2024 Evaluation and management of inpatient Winifred Cornell DO Work Phone: [facility] Medical Unit 4N Comment on above: Ischemic leg (Primar y Dx); Right leg pain; Peripheral arterial disease (HCC); Right leg weakness; Atrial fibrillation, unspecified type (HCC) Start: 07-27-2023 End: 07-27-2023 Office outpatient new 30 minutes Ming Weinberg MD Work Phone: [facility] Comment on above: 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) Start: 06-15-2023 End: 06-15-2023 Subsequent hospital visit by physician Jared Evans MD Work Phone: [facility] MRI Comment on above: Abnormal findings on diagnostic imaging of other specified body structures; Pain in left leg Start: 06-01-2023 Transcribe Orders Jared Evans MD Work Phone: [facility] Central Scheduling Comment on above: Abnormal findings on diagnostic imaging of other specified body structures (Primary Dx); Pain in left leg Start: 05-24-2023 End: 05-24-2023 Subsequent hospital visit by physician Jared Evans MD Work Phone: [facility] US Comment on above: Other specified soft tissue disorders Start: 05-23-2023 Transcribe Orders Jared Evans MD Work Phone: [facility] Central Scheduling Comment on above: Other specified soft tissue disorders (Primary Dx) Start: 03-08-2023 End: 03-08-2023 Subsequent hospital visit by physician Jared Evans MD Work Phone: [facility] CT Comment on above: Localized swelling, mass and lump, neck Start: 02-28-2023 Transcribe Orders Jared Evans MD Work Phone: [facility] Central Scheduling Comment on above: Localized swelling, mass and lump, neck (Primary Dx) Start: 02-22-2023 End: 02-22-2023 Subsequent hospital visit by physician Jared Evans MD Work Phone: [facility] US Comment on above: Localized swelling, mass and lump, neck Start: 02-17-2023 Transcribe Orders Jared Evans MD Work Phone: [facility] Central Scheduling Comment on above: Localized swelling, mass and lump, neck (Primary Dx) Start: 07-06-2022 Telephone encounter Inés Tubbs RN NOC Comment on above: Follow Up Phone Call (All Clear) Start: 06-21-2022 End: 06-21-2022 Evaluation and management of inpatient SIM ELIZABETH Facility:[facility] Start: 06-19-2022 ambulatory [facility] [place] [address] CARD/HF/PD Start: 06-16-2022 End: 06-29-2022 Evaluation and management of inpatient BERNIE MANE Facility:[facility] Start: 05-27-2022 Telephone encounter Jared pennington MD Work Phone: NOC Comment on above: Follow Up (Gyant int eraction - F/U - attempt made. No answer.) Start: 05-17-2022 End: 05-17-2022 Patient encounter procedure Josiah Barnes MD Work Phone: Otolaryngology Comment on above: Acute bacterial sial adenitis (Primary Dx); Bashir's, angina Start: 05-14-2022 End: 05-14-2022 Patient encounter procedure Jared Velazquez PA-C Work Phone: [facility] Comment on above: Salivary gland swell ing (Primary Dx) Start: 03-07-2020 End: 03-07-2020 Subsequent hospital visit by physician Jayla Mcmahan Work Phone: [facility] Comment on above: S/P surgical amputat ion of finger, right (Primary Dx); Finger osteomyelitis, right (HCC) Start: 03-06-2020 End: 03-06-2020 Subsequent hospital visit by physician Jayla Mcmahan Work Phone: [facility] Start: 02-08-2020 End: 02-08-2020 Emergency department patient visit Maryuri Fernando [facility] ED Comment on above: Felon of finger (Alice winifred Dx) Procedures Date Procedure Procedure Detail Performing Clinician Start: 12-24-2024 Follow-up visit JARED EVANS Start: 12-13-2024 Dup-scan lxtr art/ar tl bpgs uni/lmtd study Kristyn Blankenship MD Work Phone: Start: 12-05-2024 Follow-up visit JARED EVANS Start: 11-22-2024 FL GUIDANCE OR USE O NLY - NON-RESULTABLE Kristyn Blankenship MD Work Phone: Start: 11-05-2024 Follow-up visit JARED EVANS Start: 10-01-2024 Ophthalmic ultrasoun d dx b-scan w/wo a-scan Savana Lopez MD Work Phone: Start: 09-03-2024 Urine culture Megan EVERETT Start: 08-22-2024 Follow-up visit Follow-up HENOK HUGHES Start: 08-16-2024 Glucose quantitative blood xcpt reagent strip Devika Escobar MD Work Phone: Start: 08-05-2024 Comprehensive metabo lic panel Shivani Dimas PA-C Work Phone: Start: 08-05-2024 Comprehensive metabo lic panel Shivani Dimas DENITAC Work Phone: Start: 08-04-2024 Comprehensive metabo lic panel Shivani Dimas UGO-C Work Phone: Start: 08-03-2024 Iadna-dna/rna gi pth gn multiplex probe tq - Shivani Dimas UGO-C Work Phone: Start: 08-03-2024 Basic metabolic pane l calcium total Shivani Dimas UGO-C Work Phone: Start: 08-03-2024 Basic metabolic pane l calcium ionized Mariana King DO Work Phone: Start: 08-03-2024 Ct abdomen & pelvis w/o contrast material Mariana King DO Work Phone: Start: 08-03-2024 Radiologic exam ches t single view Mariana King DO Work Phone: Start: 08-03-2024 Comprehensive metabo lic panel Mariana King DO Work Phone: Start: 08-03-2024 Manual differential performed [Presence] in Blood Mariana King DO Work Phone: Start: 08-03-2024 SARS-COV-2, FLU A/B, AND RSV COMBO Mariana King DO Work Phone: Start: 07-23-2024 Ophthalmic ultrasoun d dx b-scan w/wo a-scan Savana Lopez MD Work Phone: Start: 07-23-2024 Fundus photography w/interpretation & report Savana Lopez MD Work Phone: Start: 07-16-2024 Ophthalmic ultrasoun d dx b-scan w/wo a-scan Savana Lopez MD Work Phone: Start: 07-16-2024 Fundus photography w/interpretation & report Savana Lopez MD Work Phone: Start: 07-12-2024 Ophthalmic ultrasoun d dx b-scan w/wo a-scan Eliecer Eric MD Work Phone: Start: 07-12-2024 Fundus photography w/interpretation & report Eliecer Eric MD Work Phone: Start: 07-07-2024 Basic metabolic pane l calcium total Silvio Peres MD Work Phone: Start: 07-06-2024 Basic metabolic pane l calcium total Silvio Peres MD Work Phone: Start: 07-05-2024 Mri brain brain stem w/o contrast material Corey Lopez MD Work Phone: Start: 07-05-2024 Comprehensive metabo lic panel Christy Tolentino DO Work Phone: Start: 07-05-2024 Ecg routine ecg w/le ast 12 lds trcg only w/o i&r Wm Mudrakola DO Work Phone: Start: 07-05-2024 Cerebral perfusion a nalys ct w/blood flow&volume Wm Mudrakola DO Work Phone: Start: 07-05-2024 Ct angiography head w/contrast/noncontrast Wm Mudrakola DO Work Phone: Start: 07-05-2024 End: 07-05-2024 Blood count complete automated Wm Mudrakola DO Work Phone: Start: 07-02-2024 Blood count complete automated Devika A Madhu DO Work Phone: Start: 06-28-2024 Blood count complete automated Devika A Madhu DO Work Phone: Start: 06-27-2024 Assay of ferritin Azar Burk MD Work Phone: Start: 06-25-2024 Blood count complete automated Devika A Madhu DO Work Phone: Start: 06-21-2024 Basic metabolic pane l calcium total Devika A Madhu DO Work Phone: Start: 06-10-2024 Thyrotropin [Units/v olume] in Serum or Plasma Wm Mudraylorenzo DO Work Phone: Start: 05-22-2024 Follow-up visit JARED EVANS Start: 05-21-2024 Prothrombin time Histor horacio Haywood MD Work Phone: Start: 05-14-2024 Echo tthrc r-t 2d w/wom-mode compl spec&colr d Jared Evans MD Work Phone: Start: 05-09-2024 Prothrombin time Histor horacio Haywood MD Work Phone: Start: 05-01-2024 Prothrombin time Histor horacio Haywood MD Work Phone: Start: 04-25-2024 Follow-up visit JARED EVANS Start: 04-19-2024 Prothrombin time Histor horacio Haywood MD Work Phone: Start: 04-13-2024 Basic metabolic pane l calcium total Robert Vigil MD Work Phone: Start: 04-12-2024 Basic metabolic pane l calcium total Robert Vigil MD Work Phone: Start: 04-11-2024 Thromboplastin time partial plasma/whole blood Jordin Roldan MD Work Phone: Start: 04-11-2024 Basic metabolic pane l calcium total Robert Vigil MD Work Phone: Start: 04-10-2024 Thromboplastin time partial plasma/whole blood Pratibha Avelar DO Work Phone: Start: 04-10-2024 Basic metabolic pane l calcium total Robert Vigil MD Work Phone: Start: 04-09-2024 Thromboplastin time partial plasma/whole blood Pratibha Avelar DO Work Phone: Start: 04-09-2024 Radiologic exam ches t single view Robert Vigil MD Work Phone: Start: 04-09-2024 Thromboplastin time partial plasma/whole blood Pratibha Avelar DO Work Phone: Start: 04-09-2024 Basic metabolic pane l calcium total Robert Vigil MD Work Phone: Start: 04-08-2024 Thromboplastin time partial plasma/whole blood Pratibha Dodie Avelar DO Work Phone: Start: 04-08-2024 Thromboplastin time partial plasma/whole blood Pratibha Dodie Avelar DO Work Phone: Start: 04-08-2024 Basic metabolic pane l calcium total Robert Vigil MD Work Phone: Start: 04-07-2024 Thromboplastin time partial plasma/whole blood Pratibha Dodie Avelar DO Work Phone: Start: 04-07-2024 Basic metabolic pane l calcium total Robert Vigil MD Work Phone: Start: 04-06-2024 Thromboplastin time partial plasma/whole blood Pratibha Dodie Avelar DO Work Phone: Start: 04-06-2024 FL GUIDANCE OR USE O NLY - NON-RESULTABLE Kristyn Blankenship MD Work Phone: Start: 04-06-2024 Antibody screen JARED EVANS Comment on above: Performed By: #### L [id number] ####Improvement Auditor: VELMA VALADEZ ([id number])[facility] ([address] Start: 04-06-2024 Blood typing serologic abo Kristyn Blankenship MD Work Phone: Start: 04-06-2024 End: 04-06-2024 Prq transluminal mechanical thrombectomy vein Kristyn Blankenship MD Work Phone: Start: 04-06-2024 Basic metabolic pane l calcium total Robert Vigil MD Work Phone: Start: 04-05-2024 Prothrombin time Ryan Valdez MD Work Phone: Start: 04-05-2024 Thromboplastin time partial plasma/whole blood Pratibha Felicianoi DO Work Phone: Start: 04-05-2024 End: 04-05-2024 Basic metabolic panel calcium total Robert Vigil MD Work Phone: Start: 04-04-2024 Thromboplastin time partial plasma/whole blood Pratibha Avelar DO Work Phone: Start: 04-04-2024 Thromboplastin time partial plasma/whole blood Pratibha Felicianoi DO Work Phone: Start: 04-04-2024 Non-invasive physiol ogic study extremity 3 carolyn Naik MD Work Phone: Start: 04-04-2024 Dup-scan xtr veins c omplete bilateral study Pratibha Avelar DO Work Phone: Start: 04-04-2024 Basic metabolic pane l calcium total Pratibha Avelar DO Work Phone: Start: 04-04-2024 Thromboplastin time partial plasma/whole blood Pratibha Avelar DO Work Phone: Start: 04-03-2024 Thromboplastin time partial plasma/whole blood Pratibha Felicianoi DO Work Phone: Start: 04-03-2024 Cta abdl aorta&bi il iofem w/contrast&postp Bernie Cutler FOOD SERVICES DIRECTOR - APPLICATIONS PROJECT MANAGER Work Phone: Start: 04-03-2024 Ct head/brain w/o co ntrast material Bernie Cutler FOOD SERVICES DIRECTOR - APPLICATIONS PROJECT MANAGER Work Phone: Start: 04-03-2024 Comprehensive metabo lic panel Bernie Cutler FOOD SERVICES DIRECTOR - APPLICATIONS PROJECT MANAGER Work Phone: Start: 04-03-2024 Ecg routine ecg w/le ast 12 lds trcg only w/o i&r Bernie Cutler FOOD SERVICES DIRECTOR - APPLICATIONS PROJECT MANAGER Work Phone: Start: 06-15-2023 Mri lower extrem oth /thn jt w/o & w/contr matr Jared Evans MD Work Phone: Start: 05-24-2023 Dup-scan xtr veins unilateral/limited study Jared Evans MD Work Phone: Start: 06-21-2022 Antibody screen BERNIE MNAE Comment on above: Order Comment: Speci men Type: BLOOD SPECIMEN Ordering Facility: [facility] Address: [address] [place], [place] [id number] Performed By: #### T SCR #### [facility] CLIA [id number] [address] OF [facility] Start: 03-07-2020 OPERATIVE REPORT 3m Sca nning Start: 02-08-2020 INCISION AND DRAINAGE R mona Morgan Work Phone: Plan of Treatment Date Care Activity Detail Author Start: 02-15-2029 DTaP/Tdap/Td vaccine (2 - Td) DTaP/Tdap/Td vaccine (2 - Td) [place] Start: 02-15-2029 DTaP/Tdap/Td Vaccines (2 - Td or Tdap) DTaP/Tdap/Td Vaccines (2 - Td or Tdap) [facility] Start: 02-15-2029 Urine microalbumin profile DTaP,Tdap,Td Vaccine (2 - Td or Tdap) [facility] Start: 08-05-2027 Diabetes Screening Diabetes Screening [facility] Start: 07-07-2027 Diabetes Screening Diabetes Screening [facility] Start: 07-06-2027 Diabetes Screening Diabetes Screening [facility] Start: 06-21-2027 Diabetes Screening Diabetes Screening [facility] Start: 08-16-2025 End: 01-23-2026 OCT MACULA CIRRUS OD (RIGHT EYE) OCT MACULA CIRRUS OD (RIGHT EYE) [facility] Imaging Routine Postoperative eye state 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, right eye Subluxation of right lens Expected: 08/16/2025, Expires: 01/23/2026 [facility] Work Phone: Comment on above: Expected: 08/16/2025, Expires: Start: 08-05-2025 Diabetes: Estimated Glomerular Filtration Rate for Kidney Health Diabetes: Estimated Glomerular Filtration Rate for [facility] Start: 08-04-2025 Diabetes: Estimated Glomerular Filtration Rate for [facility] Diabetes: Estimated Glomerular Filtration Rate for [facility] Start: 07-31-2025 End: 01-07-2026 Right eye Photo documentation FUNDUS PHOTOS OD (RIGHT EYE) [facility] Imaging Routine Postoperative eye state 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, right eye Subluxation of right lens Expected: 07/31/2025, Expires: 01/07/2026 [facility] Work Phone: Comment on above: Expected: 07/31/2025, Expires: Start: 07-07-2025 Diabetes: Estimated Glomerular Filtration Rate for [facility] Diabetes: Estimated Glomerular Filtration Rate for [facility] Start: 06-24-2025 DIABETES SCREEN DIABETES SCREEN [facility] Start: 06-10-2025 Thyroid stimulating hormone measurement TSH Level [facility] Start: 05-18-2025 DIABETES SCREEN DIABETES SCREEN [facility] Start: 03-18-2025 Influenza vaccination Influenza Vaccine (Season Ended) [facility] Start: 01-02-2025 End: 01-02-2025 Patient encounter procedure 01/02/2025 9:45 AM EDT Office Visit [facility] [address] [place] [address] Savana Lopez MD [address] [place] [address] *3 M, DFE Ophthalmology Comment on above: *3 M, DFE Start: 12-24-2024 End: 12-24-2024 Patient encounter procedure 12/24/2024 2:30 PM EDT Office Visit [facility] [place] [address] [facility] [address] [place] [phone] Kristyn Blankenship MD [address] [facility] [address] [place] [address] [facility] Start: 12-05-2024 End: 12-05-2024 Patient encounter procedure 12/05/2024 10:00 AM EDT Office Visit [facility] [place] [address] [place] [phone] Kristyn Blankenship MD [address] [place] [phone] [facility] [place] Start: 11-22-2024 End: 11-22-2024 Admission to same day surgery center 11/22/2024 9:30 AM EDT - 11/22/2024 11:30 AM EDT Surgery [facility] MAIN OR [address] [place] [address] Kristyn Blankenship MD [address] [place] [address] [phone] AORTOILIAC ANGIOGRAPHY, RIGHT LOWER EXTREMITY ANGIOGRAPHY WITH RUNOFF, POSSIBLE SUPERFICIAL FEMORAL ARTERY/POPLITEAL/TIBIAL ANGIOPLASTY/STENTING [42652 (CPT )] [facility] MAIN OR Comment on above: AORTOILIAC ANGIOGRAPHY, RIGHT LOWER EXTR EMITY ANGIOGRAPHY WITH RUNOFF, POSSIBLE SUPERFICIAL FEMORAL ARTERY/POPLITEAL/TIBIAL ANGIOPLASTY/STENTING [28212 (CPT )] Start: 11-22-2024 End: 11-22-2024 Angiography extremity unilateral rs&i ANGIOGRAM, EXTREMITY Skin ulcer of right great toe (HCC) Critical limb ischemia of right lower extremity (HCC) 11/22/2024 9:30 AM EDT [facility] Operating Room Start: 11-22-2024 Subsequent hospital visit by physician 11/22/2024 9:30 AM EDT Hospital Encounter [facility] [address] [place] [address] Kristyn Blankenship MD [address] [place] [phone] [facility] Start: 11-20-2024 Subsequent hospital visit by physician 11/20/2024 Hospital Encounter [facility] [address] [place] [address] Kristyn Blankenship MD [address] [place] [phone] [facility] Start: 11-13-2024 End: 11-13-2025 Basic metabolic 1998 panel - Serum or Plasma Basic metabolic panel Lab Routine Pre-op evaluation Expected: 11/13/2024 (Approximate), Expires: 11/13/2025 [facility] Comment on above: Expected: 11/13/2024 (Approximate), Expi res: 11/13/2025 Start: 11-13-2024 End: 11-13-2025 CBC W Auto Differential panel - Blood CBC auto differential Lab Routine Pre-op evaluation Expected: 11/13/2024 (Approximate), Expires: 11/13/2025 [facility] Work Phone: Comment on above: Expected: 11/13/2024 (Approximate), Expi res: 11/13/2025 Start: 10-01-2024 End: 10-01-2024 Patient encounter procedure 10/01/2024 10:30 AM EDT Office Visit [facility] Op[facility]mology [address] [address] Savana Lopez MD [address] [place], [place] [phone] Day F/U ~ DFE OD bscan OD . Ophthalmology Comment on above: 26 Day F/U ~ DFE OD bscan OD . Start: 08-22-2024 End: 08-22-2024 Patient encounter procedure 08/22/2024 10:30 AM EST Office Visit [facility] [place] [address] [place] [phone] Henok Santizo PA-C [address] [place] [address] [facility] [place] Start: 08-15-2024 End: 08-15-2024 Patient encounter procedure 08/15/2024 9:45 AM EST Office Visit [facility] [address] [place] [address] Savana Lopez MD [address] [place], [place] [phone] *1 month post op Ophthalmology Comment on above: *1 month post op Start: 08-06-2024 End: 08-06-2024 Patient encounter procedure 08/06/2024 11:00 AM EST Office Visit [facility] [place] [address] [place] [phone] Henok Santizo PA-C [address] [place], [place] [phone] [facility] [place] Start: 08-01-2024 End: 08-01-2024 Patient encounter procedure Ophthalmology Comment on above: *1 week post op Start: 07-31-2024 End: 07-31-2024 Patient encounter procedure [facility] Start: 07-27-2024 End: 07-27-2024 Admission to same day surgery center 07/27/2024 10:50 AM EST - 07/27/2024 12:40 PM EST Surgery Ophthalmology [address] [address] Savana Lopez MD [address] [place] [address] VITRECTOMY 25G [facility] PARS PLANA APPROACH W/ REMOVAL OF PRERETINAL CELLULAR MEMBRANE Ophthalmology Comment on above: [facility] W/ REMOVAL OF PRERETINAL CELLULAR MEMBRANE Start: 07-27-2024 End: 07-27-2024 Aspiration/release vitreous subretinal/choroidal RELEASE OF VITREOUS, CHOROIDAL FLUID, PARS PLANA APPROACH Hemorrhagic choroidal detachment of right eye 07/27/2024 10:50 AM EST [facility] Start: 07-27-2024 Subsequent hospital visit by physician 07/27/2024 10:50 AM EST Hospital Encounter Ophthalmology [address] [address] Savana Lopez MD [address] [place] [address] 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] Ophthalmology Comment on above: Hemorrhagic choroidal detachment of righ t eye [H31.411] Start: 07-27-2024 End: 07-27-2024 Vitrectomy pars plana remove preretinal membrane VITRECTOMY 25G [facility] PARS PLANA APPROACH W/ REMOVAL OF PRERETINAL CELLULAR MEMBRANE Hemorrhagic choroidal detachment of right eye 07/27/2024 10:50 AM EST [facility] Start: 07-23-2024 End: 07-23-2024 Patient encounter procedure 07/23/2024 10:45 AM EST Office Visit OPHT Ophthalmology [address] [address] Savana Lopez MD [address] [place] [address] *1 W, DFE OD/BSCAN OD/OPTOS OD Ophthalmology Comment on above: *1 W, DFE OD/BSCAN OD/OPTOS OD Start: 07-18-2024 Advance Directive Discussion Advance Directive Discussion [facility] Start: 07-18-2024 Medicare Advantage Annual Wellness Visit Medicare Advantage Annual Wellness Visit [facility] Start: 07-16-2024 End: 07-16-2024 Patient encounter procedure Ophthalmology Comment on above: Please schedule this patient with Dr. Jose Angel grey Tuesday07/16/24. Ok to over book per Dr. Lopez *NEW, HEMORRHAGIC CH OROIDALS/MONOCULAR, DFE OD/g SCAN OD ok per DM Start: 07-13-2024 End: 07-13-2024 Aspiration/release vitreous subretinal/choroidal ASPIRATION VITREOUS, CHOROIDAL FLUID, PARS PLANA APPROACH Hemorrhagic choroidal detachment of right eye 07/13/2024 2:04 PM EST [facility] Start: 07-13-2024 End: 07-13-2024 Evaluation and management of inpatient 07/13/2024 2:04 PM EST - 07/13/2024 3:24 PM EST Surgery Ophthalmology [address] [address] Savana Lopez MD [address] [place] [address] ASPIRATION VITREOUS, CHOROIDAL FLUID, PARS PLANA APPROACH Ophthalmology Comment on above: ASPIRATION VITREOUS, CHOROIDAL FLUID, PA RS PLANA APPROACH Start: 06-04-2024 End: 05-21-2025 POCT Prothrombin Time INR ([facility]) POCT Prothrombin Time INR ([facility]) Lab Routine Atrial fibrillation, unspecified type (HCC) Acute venous embolism and thrombosis of deep vessels of proximal end of right lower extremity (HCC) Expected: 06/04/2024, Expires: 05/21/2025 [employer] Work Phone: Comment on above: Expected: 06/04/2024, Expires: Start: 06-04-2024 End: 06-04-2024 Anticoagulant drug monitoring 06/04/2024 1:15 AM EST Anticoagulation - [facility] [address] [place] [address] [facility] Start: 05-22-2024 End: 05-22-2024 Patient encounter procedure 05/22/2024 3:00 PM EST Office Visit [facility] [address] [facility] [address] [place] [phone] Hermila Padilla MD [address] [facility] [address] [place], [place] [phone] [facility] Start: 05-22-2024 End: 05-22-2024 Anticoagulant drug monitoring 05/22/2024 12:45 AM EST Anticoagulation - Warfarin Visit [facility]tico[facility] Management [facility] [address] [facility] [address] [place] [phone] [facility] Start: 05-14-2024 End: 05-14-2024 Patient encounter procedure 05/14/2024 2:00 PM EDT Appointment [facility] Non-Invasive Cardiology [address] [place] [phone] [facility] Non-Invasive Cardiology Start: 05-08-2024 End: 05-01-2025 POCT Prothrombin Time INR ([facility]) POCT Prothrombin Time INR ([facility]) Lab Routine Atrial fibrillation, unspecified type (HCC) Acute venous embolism and thrombosis of deep vessels of proximal end of right lower extremity (HCC) Expected: 05/08/2024 (Approximate), Expires: 05/01/2025 [employer] Work Phone: Comment on above: Expected: 05/08/2024 (Approximate), Expi res: 05/01/2025 Start: 05-08-2024 End: 05-08-2024 Anticoagulant drug monitoring 05/08/2024 1:30 AM EDT Anticoagulation - Other Visit [facility] [address] [phone] [facility] Start: 05-01-2024 End: 05-01-2024 Anticoagulant drug monitoring 05/01/2024 Anticoagulation - Warfarin Visit [facility] [address] [phone] [facility] Start: 04-23-2024 End: 04-19-2025 POCT Prothrombin Time INR ([facility]) POCT Prothrombin Time INR ([facility]) Lab Routine Atrial fibrillation, unspecified type (HCC) Acute venous embolism and thrombosis of deep vessels of proximal end of right lower extremity (HCC) Expected: 04/23/2024 (Approximate), Expires: 04/19/2025 [facility] Work Phone: Comment on above: Expected: 04/23/2024 (Approximate), Expi res: 04/19/2025 Start: 04-23-2024 End: 04-23-2024 Patient encounter procedure 04/23/2024 9:15 AM EDT Office Visit [facility] [place] [address] [facility] [address] [place] [phone] Henok Hernandez PA-C [address] [facility] [address] [place], [place] [phone] [facility] [place] Start: 04-23-2024 End: 04-23-2024 Anticoagulant drug monitoring 04/23/2024 1:15 AM EDT Anticoagulation - Warfarin Visit [facility] [address] [phone] [facility] Start: 04-19-2024 End: 04-19-2024 Anticoagulant drug monitoring 04/19/2024 1:00 AM EDT Anticoagulation - Warfarin Visit [facility] [address] [phone] [facility] Start: 04-16-2024 End: 04-16-2025 POCT Prothrombin Time INR ([facility]) POCT Prothrombin Time INR ([facility]) Lab Routine Deep vein thrombosis (DVT) of lower extremity, unspecified chronicity, unspecified laterality, unspecified vein (HCC) Expected: 04/16/2024, Expires: 04/16/2025 [facility] Work Phone: Comment on above: Expected: 04/16/2024, Expires: Start: 03-18-2024 Covid-19 Vaccine ( season) Covid-19 Vaccine ( season) [facility] Start: 03-18-2024 Influenza vaccination Influenza Vaccine (#1) [facility] Start: 07-18-2023 Advance Directive Discussion Advance Directive Discussion [facility] Start: 07-18-2023 Medicare Advantage Annual Wellness Visit Medicare Advantage Annual Wellness Visit [facility] Start: 03-18-2023 Influenza vaccination Influenza Vaccine (#1) [facility] Start: 03-18-2022 Influenza vaccination INFLUENZA (#1) [facility] Start: 07-18-2021 ADVANCE DIRECTIVE DISCUSSION ADVANCE DIRECTIVE DISCUSSION [facility] Start: 07-18-2021 DEPRESSION ASSESSMENT DEPRESSION ASSESSMENT [facility] Start: 03-18-2020 [facility]enza [facility] Start: 03-13-2020 End: 03-13-2020 Office Visit 03/13/2020 Office Visit Orthopedic Surgery Jayla Mcmahan MD [address] [facility] [address] [place] [address] [phone] [facility] [place] Start: 03-07-2020 Hospital Encounter 03/07/2020 Hospital Encounter IP Unit Jayla Mcmahan MD [address] [facility] [address] [place] [address] [phone] Yoan Serrato Dept Start: 03-06-2020 Annual Wellness Visit (AWV) Annual Wellness Visit (AWV) [place] Start: 04-12-2019 Pneumococcal Vaccine: 50+ Years (2 of 2 - PPSV23) Pneumococcal Vaccine: 50+ Years (2 of 2 - PPSV23) [facility] Start: 04-12-2019 Pneumococcal Vaccine: 65+ Years (2 - PPSV23 if available, else PCV20) Pneumococcal Vaccine: 65+ Years (2 - PPSV23 if available, else PCV20) [facility] Start: 04-12-2019 Pneumococcal Vaccine: 65+ Years (2 - PPSV23 or PCV20) Pneumococcal Vaccine: 65+ Years (2 - PPSV23 or PCV20) [facility] Start: 04-12-2019 Pneumococcal Vaccine: 65+ Years (2 of 2 - PPSV23 or PCV20) Pneumococcal Vaccine: 65+ Years (2 of 2 - PPSV23 or PCV20) [facility] Start: 02-13-2016 DIABETES SCREEN DIABETES SCREEN [facility] Start: 09-24-2014 RSV Immunization for Adults (1 - 1-dose 75+ series) RSV Immunization for Adults (1 - 1-dose 75+ series) [facility] Start: 04-23-2010 DIABETES SCREEN DIABETES SCREEN [facility] Start: 09-24-2004 BONE DENSITY BONE DENSITY [facility] Start: 09-24-2004 Pneumococcal 65+ years Vaccine (2 of 2 - PPSV23) Pneumococcal 65+ years Vaccine (2 of 2 - PPSV23) [place] Start: 09-24-2004 PNEUMOCOCCAL: 65+ (1 - PCV) PNEUMOCOCCAL: 65+ (1 - PCV) [facility] Start: 09-24-2004 Screening for osteoporosis Bone Density Screening [facility] Start: 1999 RSV Immunization aged 60 or older (1 - 1-dose 60+ series) RSV Immunization aged 60 or older (1 - 1-dose 60+ series) [facility] Start: 09-24-1994 Screening for osteoporosis DEXA (modify frequency per FRAX score) [place] Start: 09-24-1989 Shingles Vaccine (1 of 2) Shingles Vaccine (1 of 2) [place] Start: 09-24-1989 SHINGRIX VACCINE (1 of 2) SHINGRIX VACCINE (1 of 2) [facility] Start: 09-24-1989 Zoster Vaccines (1 of 2) Zoster Vaccines (1 of 2) [facility] Start: 09-24-1958 Urine microalbumin profile DTAP,TDAP,TD (1 - Tdap) [facility] Start: 09-24-1958 Zoster Vaccines (1 of 2) Zoster Vaccines (1 of 2) [facility] Start: 09-24-1957 Anxiety Screening Anxiety Screening [facility] Start: 09-24-1957 Depression Screening Depression Screening [facility] Start: 09-24-1957 Diabetes: Urine Albumin-Creatinine Ratio for Kidney Health Diabetes: Urine Albumin-Creatinine Ratio for Kidney Health [facility] Start: 09-24-1957 SPIROMETRY SPIROMETRY [facility] Start: 1951 Depression Monitoring Depression Monitoring [facility] Start: 1951 Depresssion Monitoring Depresssion Monitoring [facility] Start: 09-24-1945 PNEUMOCOCCAL: 65+ (1 - PCV) PNEUMOCOCCAL: 65+ (1 - PCV) [facility] Start: 09-24-1944 COVID-19 Vaccine (#1) COVID-19 Vaccine (#1) [facility] Start: 03-27-1940 COVID-19 VACCINE (#1) COVID-19 VACCINE (#1) [facility] Start: 1939 Creatinine measurement Creatinine monitoring [facility] [place] Start: 1939 Lipid panel Lipid Panel [facility] Start: 1939 Medicare Advantage Annual Wellness Visit (AWV) Medicare Advantage Annual Wellness Visit (AWV) [facility] Start: 1939 Potassium monitoring Potassium monitoring [facility] [place], [place] Start: 1939 Screening for osteoporosis Bone Density Scan [facility] Start: 1939 Thyroid stimulating hormone measurement TSH Level [facility] Angiography extremit y unilateral rs&i AORTOGRAM, WITH SERIALOGRAPHY Critical limb ischemia of right lower extremity (HCC) [facility] Operating Room Aortography abdomina l serialography rs&i AORTOGRAM, WITH SERIALOGRAPHY Critical limb ischemia of right lower extremity (HCC) [facility] Operating Room BSCAN OD (RIGHT EYE) BSCAN OD (R IGHT EYE) [facility] Imaging Routine Hemorrhagic choroidal detachment of right eye 07/09/2024 9:09 AM EST [facility] Work Phone: End: 01-03-2026 BSCAN OD (RIGHT EYE) BSCAN OD (RIGHT EYE) [facility] Imaging Routine Hemorrhagic choroidal detachment of right eye Dislocation of intraocular lens, initial encounter 1 Occurrences starting 07/12/2024 until 01/03/2026 [facility] Work Phone: Comment on above: 1 Occurrences starting 07/12/2024 until 01/03/2026 End: 01-07-2026 BSCAN OD (RIGHT EYE) BSCAN OD (RIGHT EYE) [facility] Imaging Routine Postoperative eye state 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, right eye Subluxation of right lens 1 Occurrences starting 07/16/2024 until 01/07/2026 [facility] Comment on above: 1 Occurrences starting 07/16/2024 until 01/07/2026 End: 02-27-2026 BSCAN OD (RIGHT EYE) BSCAN OD (RIGHT EYE) [facility] Imaging Routine Postoperative eye state 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, right eye Subluxation of right lens 1 Occurrences starting 09/05/2024 until 02/27/2026 [facility] Work Phone: Comment on above: 1 Occurrences starting 09/05/2024 until 02/27/2026 Camera fundoscopy FUNDUS PHOTOS OU (BOTH EYES) [facility] Imaging Routine Hemorrhagic choroidal detachment of right eye 07/09/2024 8:35 AM EST [facility] End: 03-08-2023 CT Neck W [facility] Work Phone: Comment on above: Once for 1 Occurrences starting 03/08/20 until 03/08/2023 Incision/Drainage Incision/Drain age Procedures Routine 02/08/2020 7:17 PM EDT [employer] [facility] OUTSIDE PROCEDURE SCAN OUTSIDE P ROCEDURE SCAN Procedures Ordered: 02/21/2023 [facility] Comment on above: Ordered: 02/21/2023 OUTSIDE PROCEDURE SCAN OUTSIDE P ROCEDURE SCAN Procedures Ordered: 03/07/2023 [facility] Comment on above: Ordered: 03/07/2023 OUTSIDE PROCEDURE SCAN OUTSIDE P ROCEDURE SCAN Procedures Ordered: 05/24/2023 [facility] Comment on above: Ordered: 05/24/2023 OUTSIDE PROCEDURE SCAN OUTSIDE P ROCEDURE SCAN Procedures Ordered: 06/14/2023 [facility] Comment on above: Ordered: 06/14/2023 Oxygen therapy [Minimum Data Set] Initiate Oxygen Therapy Protocol Respiratory Care Routine Daily until discontinued starting 03/07/2020 [employer] Comment on above: Daily until discontinued starting 2019 End: 02-22-2023 US Head and neck soft tissue [employer] Work Phone: Comment on above: Once for 1 Occurrences starting 02/23/20 until 02/22/2023 End: 03-06-2020 XR FINGER RIGHT (MIN 2 VIEWS) XR FINGER RIGHT (MIN 2 VIEWS) Imaging Routine Once for 1 Occurrences starting 03/06/2020 until 03/06/2020 [place] Comment on above: Once for 1 Occurrences starting 03/06/20 until 03/06/2020 XR FINGER RIGHT (MIN 2 VIEWS) XR FINGER RIGHT (MIN 2 VIEWS) Imaging Routine 03/06/2020 10:20 AM EDT [facility] Immunizations Immunization Date Immunization Notes Care Provider [facility] 05-19-2021 Influenza, High-dose Seasonal, Quadrivalent, Preservative Free Ming Weinberg MD Work Phone: [employer] 05-19-2021 influenza virus vaccine, unspecified formulation Jared Evans MD Work Phone: [employer] 02-15-2019 pneumococcal conjuga te vaccine, 13 valent Ming Weinberg MD Work Phone: [employer] 02-15-2019 tetanus toxoid, redu larissa diphtheria toxoid, and acellular pertussis vaccine, adsorbed Ming Weinberg MD Work Phone: [employer] 06-29-2013 influenza, high dose seasonal, preservative-free Ming Weinberg MD Work Phone: [employer] NEGATED: Highlighted row has not occurred!04-05-2024 Seasonal trivalent influenza vaccine, adjuvanted, preservative free Winifred Cornell DO Work Phone: [employer] Comment on above: Deferred: Patient Re fused Payers Date Payer Category Payer Self-pay 2023 Private Health Insurance HUMANA HUMANA MEDICARE SUPPLEMENT [id number] 2023-2023 [address] [address] [place] [address] Commercial [id number] 2017 Medicare [id number] 2017 Medicare (Managed Care) NADEGE ESCOBAR [id number] 2017 Medicare HMO HUMANA MEDICARE [id number] 2017 Medicare [id number] 1939 Unknown [id number]. 2.594 Unknown [id number] Unknown [id number] Unknown [id number] [id number]. 2.462 Unknown [id number] 2.16.840.1.570546.3.579. 2.462 Unknown [id number] 2.16.840.1.565820.3.579. 2.462 Unknown [id number] 2.16.840.1.806257.3.579. 2.462 Unknown [id number] 2.16.840.1.329706.3.579. 2.462 Unknown [id number] 2.16.840.1.589165.3.579. 2.462 Unknown [id number] 2.16.840.1.624516.3.579. 2.462 Unknown [id number] 2.16.840.1.053395.3.579. 2.462 Unknown [id number] 2.16.840.1.591436.3.579. 2.462 Unknown [id number] 2.16.840.1.597165.3.579. 2.462 Unknown [id number] 2.16.840.1.468701.3.579. 2.462 Unknown [id number] 2.16.840.1.070358.3.579. 2.462 Unknown [id number] 2.16.840.1.104003.3.579. 2.462 Unknown [id number] 2.16.840.1.278881.3.579. 2.462 Unknown [id number]. 2.462 Social History Date Type Detail Facility Start: 02-08-[address] [facility] sm[facility] [place] Start: 02-08-2020 End: 04-20-2024 Alcohol intake Current drinker of alcohol (finding) [place] Start: 02-08-2020 End: 05-17-2022 Alcohol Comment occ [place], [place] Start: 1940 Sex Assigned At Not on file [place] Start: 05-04-2022 End: 03-08-2023 Exposure to SARS-CoV-2 (event) Not sure [facility] [place] Start: 03-06-2020 End: 07-16-2024 Tobacco smoking status NHIS Former smoker [employer] [facility] Start: 03-06-2020 End: 07-16-2024 Tobacco use and exposure Never used [facility] [employer] Tobacco smoking stat us [facility] Tobacco smoking consumption unknown [facility] Start: 05-17-2022 End: 04-04-2024 Tobacco smoking status NHIS Smokes tobacco daily [facility] History of tobacco use Cigarette Smoker [facility] Start: 05-17-2022 End: 06-11-2024 Cigarettes smoked current (pack per day) - Reported 0.5 [facility] Start: 05-18-2022 History SDOH Financial 5 [facility] Start: 05-18-2022 History SDOH Food Worry 1 [facility] Start: 05-18-2022 History SDOH Transpo rt Med 2 [facility] Start: 07-05-2022 End: 01-02-2025 Alcohol intake Ex-drinker (finding) [facility] History of tobacco use Current smoker [facility] Start: 07-27-2023 End: 06-11-2024 Gender identity Not on file [employer] [facility] How often do you nee d to have someone help you when you read instructions, pamphlets, or other written material from your doctor or pharmacy [SILS] Never [facility] Has the salgomed, Pops, or Service Route threatened to shut off services in your home in past 12Mo No [facility] Are you now , , , , never or living with a partner? [facility] How often to you hav e a drink containing alcohol? Monthly or less [facility] How often do you hav e 6 or more drinks on 1 occasion? Never [facility] How hard is it for y ou to pay for the very basics like food, housing, medical care, and heating Not very hard [facility] Do you feel stress - tense, restless, nervous, or anxious, or unable to sleep at night because your mind is troubled all the time - these days [OSQ] Not at all [facility] [facility] (I/We) worried wheth er (my/our) food would run out before (I/we) got money to buy more. Never true [facility] Start: 02-15-2022 End: 10-25-2024 Sex Female (finding) [facility] Start: 1940 Sex assigned at Female S [facility] Start: 08-03-2024 Gender identity Identifies as female gender (finding) [facility] Start: 08-03-2024 Sexual orientation Heterosexual (everardo mario) [facility] NEGATED: Highlighted rowStart: NINF History of tobacco use Passive smoker [facility] Medical Equipment Procedure Code Equipment Code Equipment Origin al Text Equipment Identifier Dates Gas Ispan [employer] Intraocular Vision System [id number] - [id number] Start: 07-27-2024 Stent Vasc 6x40x 125 6f [employer] - Sna - [id number] Start: 11-22-2024 Stent Oliva [id number] 25 6f [employer] - Sna - [id number] Start: 11-22-2024 Functional Status Date Assessment Result Facility 07-18-2024 Are you deaf, or do you have serious difficulty hearing No 07/18/2024 12:17 PM Jaci Umana RN No [facility] 07-18-2024 Are you blind, or do you have serious difficulty seeing, even when wearing glasses Yes 07/18/2024 12:17 PM Jaci Umana, RADHA Yes [facility] 07-18-2024 Do you have serious difficulty walking or climbing stairs Yes 07/18/2024 12:17 PM Jaci Umana, RADHA Yes [facility] 07-18-2024 Do you have difficul ty dressing or bathing Yes 07/18/2024 12:17 PM Jaci Umana RN Yes [facility] 07-18-2024 Because of a physica l, mental, or emotional condition, do you have difficulty doing errands alone such as visiting a physician's office or shopping Yes 07/18/2024 12:17 PM Jaci Umana RN Yes [facility] Mental Status Date Assessment Result Facility 07-18-2024 Because of a physica l, mental, or emotional condition, do you have serious difficulty concentrating, remembering, or making decisions No 07/18/2024 12:17 PM Jaci Umana RN No [facility] Clinical Notes 05-14-2022 to 01-02-2025 Savana Lopez MD - 01/02/2025 9:45 AM Cindy Blankenship MD - 12/24/2024 2:30 PM Cindy Blankenship MD - 12/05/2024 10:00 AM EDTPost-Procedure Note - Theresa De Santiago RN - 11/22/2024 1:29 PM EDT Note Date & Type Note Facility 01-02-2025 History of Present illness Narrative Can see shadows; No pain right eye Suprachoroidal hemorrhage RIGHT EYE S/p choroidal drainage RIGHT eye on 07/13/24 for choroidal hemorrhage with repositioning of IOL (Mammo/Luis Alberto) S/p Choroidal drainage/PPV/EL/PFO/FAX/C3F8 (16%) RIGHT eye on 07/27/24 for choroidal hemorrhage and retinal detachment (Mammo/[facility] [place]) - LP vision - AC with resolved hyphema / cornea more clear - Unfortunately limited VA potential limited by hemorrhagic choroidals and detached retina - B scan 10/01/24 Mild vitreous opacities; Decrease in the height of the 360 degrees hemorrhagic choroidals Maximal height is at 12:00 E is 4.6 mm The retina is detached in most clock hours with subretinal fluid and areas of focal adherence to the choroid Plan = - In past we have discussed repeat surgery OD (would do PPV/SB/AC washout/probably retinectomy/SO/MTX OD) vs observation - I explained poor prognosis and low chance of improvement, good chance of vision staying same, and chance also of NLP vision - Explained downsides to continued RD - patient elects monitor for now; against another surgery; unfortunately they had high bills from prior surgery - Continue PF BID OD F/u PRN now with any pain PMH: COPD, HLD, HTN, Afib (on apixaban), CKD 3, L retinal detachment, nicotine use, severe LE PAD, recurrent embolic events, 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), hx DVT s/p right venous thrombectomy, 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, right eye Exudative retinal detachment, right eye PCIOL Subluxation, right eye Course: - 06/10/24 presented to OSH with dizziness, dysarthria and dysphagia found to have acute infarcts in the left hippocampal head and the right cerebellar hemisphere - 06/19/24: Admitted to rehab center and discharged home 07/03/24, had significant right eye tearing but no pain or visual changes - 07/04/2024 noted blurriness in her vision, that subsequently slightly improved over the course of the day - 07/05/24 woke up with severe pain behind her right eye, complete loss of vision (seeing purple/red), swelling of her right eye with significant redness, nausea and vomiting - Presented to the ED, evaluated by ophthalmology (Dr. 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 Possible increased height maximum remains at 12:00 measuring 10.6 mm s/p drainage 07/12/24 (previously 10.0 mm) 2. Able to slightly assess for mobility today, only pockets were seen 3. SRF over choroidals in all quadrants and retina appears more off for 6:00 to 12:00 - B-scan OD 07/23/23 1. 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 Possible decrease in maximal height which remains at 12:00 measuring 10.0 mm today (s/p drainage 07/12/24) (previously 10.6 mm) 2. Able to slightly assess for mobility today, only pockets were seen 3. SRF over choroidals in all quadrants and retina appears more off but difficult to discern clock hour today - Post op Week 1 s/p choroidal drainage right eye on 07/13/24 for choroidal hemorrhage with repositioning of IOL - Took to OR for worsening pain and IOP; significant clotting; some heme drained but not much - Post-op with significantly improved pain but persistent choroidals Assessment: - 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 (SBP 199/99 at presentation to [facility]) and anticoagulation that led to angle closure and elevated IOP - Alternatively IOP change s/p LPI may have led to hemorrhagic choroidals but since pseudophakic, would be rare to have developed acute angle closure - Patient adamantly denies any trauma but did have significant eye tearing with rubbing of eye day prior to development of symptoms See above I have confirmed and edited as necessary the relevant ophthalmic history, ROS, reviewed the HPI and the neuro exam findings as obtained by others. I have seen and examined this patient. I have discussed the case and the management of this patient's care with the Resident, if applicable. I also have reviewed and agree with the assessment and plan as stated above and agree with all of its relevant components. documented in this encounter [facility] 01-02-2025 Note HNO ID: [id number] Author: SAVANA LOPEZ MD Service: ? Author Type: Physician Type: Progress Notes Filed: 01/02/2025 12:56 Note Text: Can see shadows; No pain right eye Suprachoroidal hemorrhage RIGHT EYE S/p choroidal drainage RIGHT eye on 07/13/24 for choroidal hemorrhage with repositioning of IOL (Mammo/[facility]) S/p Choroidal drainage/PPV/EL/PFO/FAX/C3F8 (16%) RIGHT eye on 07/27/24 for choroidal hemorrhage and retinal detachment (Mammo/[facility]) - LP vision - AC with resolved hyphema / cornea more clear - Unfortunately limited VA potential limited by hemorrhagic choroidals and detached retina - B scan 10/01/24 Mild vitreous opacities; Decrease in the height of the 360 degrees hemorrhagic choroidals Maximal height is at 12:00 E is 4.6 mm The retina is detached in most clock hours with subretinal fluid and areas of focal adherence to the choroid Plan = - In past we have discussed repeat surgery OD (would do PPV/SB/AC washout/probably retinectomy/SO/MTX OD) vs observation - I explained poor prognosis and low chance of improvement, good chance of vision staying same, and chance also of NLP vision - Explained downsides to continued RD - patient elects monitor for now; against another surgery; unfortunately they had high bills from prior surgery - Continue PF BID OD F/u PRN now with any pain PMH: COPD, HLD, HTN, Afib (on apixaban), CKD 3, L retinal detachment, nicotine use, severe LE PAD, recurrent embolic events, 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), hx DVT s/p right venous thrombectomy, 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, right eye Exudative retinal detachment, right eye PCIOL Subluxation, right eye Course: - 06/10/24 presented to OSH with dizziness, dysarthria and dysphagia found to have acute infarcts in the left hippocampal head and the right cerebellar hemisphere - 06/19/24: Admitted to rehab center and discharged home 07/03/24, had significant right eye tearing but no pain or visual changes - 07/04/2024 noted blurriness in her vision, that subsequently slightly improved over the course of the day - 07/05/24 woke up with severe pain behind her right eye, complete loss of vision (seeing purple/red), swelling of her right eye with significant redness, nausea and vomiting - Presented to the ED, evaluated by ophthalmology (Dr. 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 Possible increased height maximum remains at 12:00 measuring 10.6 mm s/p drainage 07/12/24 (previously 10.0 mm) 2. Able to slightly assess for mobility today, only pockets were seen 3. SRF over choroidals in all quadrants and retina appears more off for 6:00 to 12:00 - B-scan OD 07/23/23 1. 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 Possible decrease in maximal height which remains at 12:00 measuring 10.0 mm today (s/p drainage 07/12/24) (previously 10.6 mm) 2. Able to slightly assess for mobility today, only pockets were seen 3. SRF over choroidals in all quadrants and retina appears more off but difficult to discern clock hour today - Post op Week 1 s/p choroidal drainage right eye on 07/13/24 for choroidal hemorrhage with repositioning of IOL - Took to OR for worsening pain and IOP; significant clotting; some heme drained but not much - Post-op with significantly improved pain but persistent choroidals Assessment: - 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 (SBP 199/99 at presentation to [facility]) and anticoagulation that led to angle closure and elevated IOP - Alternatively IOP change s/p LPI may have led to hemorrhagic choroidals but since pseudophakic, would be rare to have developed acute angle closure - Patient adamantly denies any trauma but did have significant eye tearing with rubbing of eye day prior to development of symptoms See above I have confirmed and edited as necessary the relevant ophthalmic history, ROS, reviewed the HPI and the neuro exam findings as obtained by others. I have seen and examined this patient. I have discussed the case and the management of this patient's care with the Resident, if applicable. I also have reviewed and agree with the assessment and plan as state (more content not included)... [facility] 12-24-2024 History of Present illness Narrative 12/24/2024 Mel Pop 1940 Chief Complaint Patient presents with Follow-up Discuss Arterial Duplex Right 12/13/24; 2nd follow up RLE angio, SFA/pop/tib angioplasty/stenting 11/22/24 ([facility] [phone]) Patient returns for post operative evaluation s/p aortoiliac angiography and right lower extremity angiography with right SFA and above knee popliteal stent placement. The patient denies any unexpected problems since the procedure. She denies any pain or swelling at the access site. She initially had some right thigh pain but this has resolved. Her right great toe wound has almost completely healed. Surgical History[1] Physical Exam: The femoral puncture site is soft without evidence of infection or hematoma. Heart rhythm is regular. Right DP pulse is palpable. DP and PT doppler signals present bilaterally. Right great toe wound almost completely healed. Imaging: Arterial duplex right lower extremity performed 12/13/2024: Stents in SFA and popliteal artery are patent without evidence of stenosis. Middle Superficial Femoral Artery: >50% stenosis. Right side findings: Resting MICHELLE is 0.96. This is within the normal range. Left side findings: Resting MICHELLE is 0.71. This is moderately decreased. Assessment: s/p aortoiliac angiography and right lower extremity angiography with right SFA and above knee popliteal stent placement. Problem List Items Addressed This Visit None Visit Diagnoses Aftercare following surgery of the circulatory system - Primary Relevant Orders Vascular US lower extremity arterial duplex right with MICHELLE PAD (peripheral artery disease) (HCC) Relevant Orders Vascular US lower extremity arterial duplex right with MICHELLE Plan for arterial duplex in 3 months for surveillance. Continue ASA and Eliquis. Ok to to discontinue plavix on 01/07. Follow up in 3 months or sooner should there be any concerns. Kristyn Blankenship MD Vascular Surgery [1] Past Surgical History: Procedure Laterality Date ANKLE SURGERY ARM SURGERY (HISTORICAL) Right COLONOSCOPY ESOPHAGEAL DILATION EYE SURGERY Right 07/05/2024 [facility] EYE SURGERY Right 06/2024 x2, [facility] 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 HYSTERECTOMY ORTHOPEDIC SURGERY THROMBECTOMY Right 04/06/2024 RLE mechanical thrombectomy (Krzysztof) VASCULAR SURGERY Right 11/22/2024 AORTOILIAC ANGIOGRAPHY, RIGHT LOWER EXTREMITY ANGIOGRAPHY WITH RUNOFF, SUPERFICIAL FEMORAL ARTERY, POPLITEAL,TIBIAL ANGIOPLASTY and STENTING (Krzysztof) VASCULAR SURGERY Left 11/22/2024 Left femoral angiography (Krzysztof) documented in this encounter [facility] 12-05-2024 History of Present illness Narrative 12/05/2024 Mel Pop 1940 Chief Complaint Patient presents with Follow-up 1st follow up RLE angio, possible SFA/pop/tib angioplasty/stenting 11/22/24 Patient returns for post operative evaluation s/p aortoiliac angiography and right lower extremity angiography with right SFA and above knee popliteal stent placement. The patient denies any unexpected problems since the procedure. She denies any pain or swelling at the access site. She initially had some right thigh pain but this has resolved. Surgical History[1] Physical Exam: The femoral puncture site is soft without evidence of infection or hematoma. Heart rhythm is regular. DP pulse is palpable on the right. DP and PT doppler signals are present bilaterally. Assessment: s/p aortoiliac angiography and right lower extremity angiography with right SFA and above knee popliteal stent placement. Problem List Items Addressed This Visit None Visit Diagnoses Skin ulcer of toe of right foot, limited to breakdown of skin ([facility]) - Primary Relevant Orders Vascular US lower extremity arterial duplex right with MICHELLE PAD (peripheral artery disease) ([facility]) Relevant Orders Vascular US lower extremity arterial duplex right with MICHELLE Aftercare following surgery of the circulatory system Relevant Orders Vascular US lower extremity arterial duplex right with MICHELLE Given the patient's stent placement, she should be on dual antiplatelet therapy. It is unclear why she is not on ASA as she received a post-op dose, but this has been ordered today. We discussed that the plavix and ASA in addition to Eliquis puts her at an increased bleeding risk. We will plan to stop ASA in approximately 6 weeks. Plan for arterial duplex to evaluate the repair. I reviewed the images with the patient's [id number] who was present for today's visit as the patient is blind. Follow up after arterial duplex to discuss the results. Kristyn Blankenship MD Vascular Surgery [1] Past Surgical History: Procedure Laterality Date ANKLE SURGERY ARM SURGERY (HISTORICAL) Right COLONOSCOPY ESOPHAGEAL DILATION EYE SURGERY Right 07/05/2024 [facility] EYE SURGERY Right 06/2024 x2, [facility] 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 HYSTERECTOMY ORTHOPEDIC SURGERY THROMBECTOMY Right 04/06/2024 RLE mechanical thrombectomy (Krzysztof) VASCULAR SURGERY Right 11/22/2024 AORTOILIAC ANGIOGRAPHY, RIGHT LOWER EXTREMITY ANGIOGRAPHY WITH RUNOFF, SUPERFICIAL FEMORAL ARTERY, POPLITEAL,TIBIAL ANGIOPLASTY and STENTING (Krzysztof) documented in this encounter [facility] 11-22-2024 Procedure note POA called to bedside and discharge instructions reviewed. Groin site remains intact and LE distal pulses unchanged via assessment with doppler. Transportation called for leaf size picker [facility] 11-22-2024 Miscellaneous Notes POA called to bedside and discharge instructions reviewed. Groin site remains intact and LE distal pulses unchanged via assessment with doppler. Transportation called for leaf size picker POA given updated via phone call. Made aware of patient's orders to lay flat until 1325. Daughter in law stated that she will call care facility later to make arrangements for transportation back. Patient arrived on unit. Name and date verified. Attached to monitors. Vital signs stable. 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 with right great toe ulcer POST-PROCEDURE DIAGNOSIS: As above PROCEDURE PERFORMED: 1) Percutaneous access to the left common femoral artery under ultrasound guidance 2) Aortoiliac angiography 3) Right lower extremity angiography with runoff 4) Selective catheterization of right popliteal artery (third order) 5) Right popliteal artery angioplasty with 5 x 40 mm plain balloon 6) Right superficial femoral artery angioplasty with 5 x 100 plain balloon followed by 5 x 120 mm drug-coated balloon 7) Placement of 5 x 40 mm Cook Zilver Self-Expanding stent to right distal superficial femoral artery 8) Right popliteal artery angioplasty with 5 x 40 mm plain balloon followed by 5 x 40 mm drug coated balloon 9) Right 5 x 40 mm Cook Zilver stent Self-Expandingplacement to right above knee popliteal artery 10) Completion angiography 11) Left femoral angiography 12) Vascade closure to left common femoral artery access site SURGEON: Kristyn Blankenship MD ASSISTANTS: Mehreen Khanna MD (PGY-1) FINDINGS: The infrarenal abdominal aorta is patent. There is an IVC filter present in the inferior vena cava. The bilateral common iliac arteries are patent without evidence of stenosis. There is an area of dissection or saccular aneurysm present in the right common femoral artery. The internal iliac arteries are patent bilaterally as are the bilateral external iliac arteries without evidence of aneurysm or stenosis. The common femoral artery on the right is patent without evidence of stenosis. The profundofemoral artery is patent without evidence of stenosis. The superficial femoral artery is patent in the proximal segment. It becomes occluded at the at the distal portion of the superficial femoral artery. There is reconstitution via profundofemoral artery collaterals of the distal superficial femoral artery. The above-knee popliteal artery is patent. There is moderate stenosis present in the above-knee popliteal artery. The remainder of the popliteal artery is patent. The anterior tibial artery is patent onto the foot. This artery is small in caliber. The tibioperoneal trunk is patent. The peroneal artery is patent to the level of the ankle. The posterior tibial artery becomes occluded shortly after its origin. DP and PT Doppler signals were present bilaterally at the conclusion of the case with a biphasic DP Doppler signal present on the right which is an improvement over the patient's preoperative examination. ANESTHESIA: MAC and 1% lidocaine without epinephrine ESTIMATED BLOOD LOSS: Minimal COMPLICATIONS: None SPECIMENS: None IMPLANTS: 1) 6 x 40 mm Cook Zilver Self Expanding stent to right superficial femoral artery 2) 5 x 40 mm Cook Zilver Self-Expanding stent to right above knee popliteal artery WOUND CLASS: 1 FLUORO TIME: 15.1 min DOSE: 131 mGy CONTRAST: 126.9 ml INDICATIONS FOR PROCEDURE: The patient is an 84 yo female who has developed a right great toe ulceration with associated pain. She has known peripheral arterial disease but had not been experiencing any symptoms prior to this. ABIs performed in 03/2024 shows right Michelle of 0.55. CTA suggested SFA disease. Angiography was recommended for further evaluation, possible intervention, and possible surgical planning. The risks of the procedure were discussed with the patient as well as the patient's [id number] Fidel. They have elected to proceed. PROCEDURE IN DETAIL: The patient was taken to the operating room and placed in the supine position. MAC anesthesia was provided by the anesthesia team. The patient's bilateral groins were prepped and draped in the usual sterile fashion. A timeout was performed verifying the correct patient, side, site, procedure to be performed. Under ultrasound guidance, the patient's left common femoral artery was identified. 1% lidocaine without epinephrine was instilled overlying the artery for local anesthetic. The left common femoral artery was then accessed under ultrasound guidance using a micropuncture needle kit, and Seldinger technique was used to place a 5 Cameroonian sheath. The Bentson wire was positioned in the infrarenal abdominal aorta followed by an Omni Flush catheter. The wire was removed and aortoiliac angiography was performed. The infrarenal abdominal aorta is patent without evidence of aneurysm or stenosis. There is a noted inferior vena cava filter present within the inferior vena cava. The Omni Flush catheter was pulled down to the level of the iliac bifurcation and additional angiography was performed in oblique projection. The bilateral common iliac, external iliac, and internal iliac arteries are patent. There is what appears to be a saccular aneurysm present in the distal common iliac artery on the right. Using the Bentson wire and the Omni Flush catheter, the aortic bifurcation was traversed and the Omni Flush catheter was positioned with its distal tip in the external iliac artery on the right. Right lower extremity angiography was performed with runoff. The common femoral artery on the right is patent without evidence of stenosis. The profundofemoral artery is patent without evidence of stenosis. The superficial femoral artery is patent in the proximal segment. It becomes occluded at the at the distal portion of the superficial femoral artery. There is reconstitution via profundofemoral artery collaterals of the distal superficial femoral artery. The above-knee popliteal artery is patent. There is moderate stenosis present in the above-knee popliteal artery. The remainder of the popliteal artery is patent. The anterior tibial artery is patent onto the foot. This artery is small in caliber. The tibioperoneal trunk is patent. The peroneal artery is patent to the level of the ankle. The posterior tibial artery becomes occluded shortly after its origin. The Bentson wire was then placed through the Omni Flush catheter and the catheter removed. The 5 Cameroonian sheath was exchanged for a long 6 Cameroonian Ansell sheath which was positioned with its distal tip in the external iliac artery on the right. The patient was given 5000 units of heparin for systemic anticoagulation at this time. The Bentson wire was removed and a stiff angled Glidewire was placed through the sheath and access was obtained into the superficial femoral artery. The wire was passed as distally as possible without resistance in the SFA. This was at approximately the level of the SFA occlusion. A CXI catheter and the stiff glidewire was used to cross the lesion. The wire was then passed distally through the popliteal artery and positioned in the distal popliteal artery. The CXI was advanced to this level and the wire was removed. Angiography confirmed appropriate access within the true lumen with continued flow into the tibial vessels. The stiff angled Glidewire was then replaced through the CXI catheter the CXI catheter was removed. Angiography was performed through the sheath which identified the area in the above-knee popliteal artery with moderate stenosis. A 5 x 40 mm plain balloon angioplasty was performed across this area with improvement in flow. The balloon was removed. Angiography was performed through the sheath which showed improvement in this area with approximately 30% stenosis remaining. We next turned our attention to the superficial femoral artery lesion. Plain balloon angioplasty was performed with a 5 x 100 mm plain balloon. This showed significant improvement with inline flow present in the superficial femoral artery however in the mid leg there appeared to be a small dissection flap. A 5 x 120 mm drug-coated balloon was then deployed across the lesion in the area of concern. The balloon was inflated to 8 mmHg for 3 minutes. The balloon was deflated and then removed. Completion angiography showed continued concern for an area of irregularity in the mid superficial femoral artery. Because of this, we elected to place a 6 mm x 40 mm Cook Zilver self-expanding stent across the area. The stent was deployed and postdilated with a 6 x 40 mm plain balloon. Completion angiography showed resolution of the area of irregularity and improvement in flow through the superficial femoral artery. Completion angiography also showed what appeared to be recoil of the above-knee popliteal artery lesion. Plain balloon angioplasty was again performed using a 5 x 40 mm with a prolonged inflation time. Completion angiography following plain balloon angioplasty appeared to show a small dissection flap present in the area of treatment. A 5 x 40 mm drug-coated balloon was then deployed to 8 mmHg for 3 minutes. Completion angiography continued to show an area of dissection. Because of this, a 5 x 40 mm Cook Zilver self-expanding stent was placed across the dissection and deployed. It was postdilated using a 6 x 40 mm plain balloon to 7 mmHg. Completion angiography showed resolution of the dissection and continued flow through the superficial femoral and popliteal arteries. Additionally, there was continued flow into the tibial vessels. The wire and sheath were pulled back. The wire was positioned in the infrarenal abdominal aorta and the distal tip of the Ansell sheath was positioned in the left external iliac artery. Left femoral angiography was performed which showed appropriate placement of access within the common femoral artery on the left. The Ansell sheath was exchanged for a short 6 Cameroonian sheath. A Vascade closure device was deployed at the left femoral access site with success. The patient was also given 30 mg of protamine for reversal of anticoagulation. A sterile dressing was applied. The patient was transferred to the recovery area in stable condition. DP and PT Doppler signals were present bilaterally. The right DP Doppler signal was biphasic and significantly improved over preoperative examination. Kristyn Blankenship MD Vascular Surgery documented in this encounter [facility] 11-22-2024 Procedure note POA given updated via phone call. Made aware of patient's orders to lay flat until 1325. Daughter in law stated that she will call care facility later to make arrangements for transportation back. [facility] 11-22-2024 Hospital Discharge instructions Mehreen Khanna MD - 11/22/2024 11:39 AM EDT Arteriogram Discharge Instructions Restart Eliquis on 11/23 Start Plavix 75 mg once daily on 11/23 Activity: Return home and rest the remainder of the day. Avoid long periods of sitting The morning after your arteriogram you may resume your daily routine and light activity such as walking, using stairs, driving, etc. Sexual activity may be resumed You may resume normal activity in 24 hours Avoid strenuous activity for one week. This include jogging, tennis and other sports Do not lift anything over 5 pounds for one week or until your wound heals If you have any question about your activity, call the physician who performed the procedure Possible Complications: Bleeding from the puncture site: If you notice bleeding from the puncture site, lie down and apply pressure for 5 minutes. After 5 minutes, release pressure and observe the site for a few minutes for indications of further bleeding. If bleeding continues, resume pressure and have someone take you to the nearest Emergency Room Swelling or hard knot enlarging at the puncture site: This indicates bleeding from the artery which is collecting under the skin. Apply pressure over the site and hold for 5 minutes. After 5 minutes, release the pressure and observe the site for a few minutes for indications of further bleeding. If swelling continues, resume pressure and have someone take you to the nearest Emergency Room Enlarging bruise at the puncture site: If you believe that your bruise is getting larger, alfred the border with a pen or marker and observe. If it is enlarging, call the office immediately. This could indicate that the artery is oozing and may need more pressure applied Numbness, tingling, cold feeling or color change in the leg or arm with the arterial puncture: Call the office immediately or have someone take you to the nearest Emergency Room Fever over 100F or any sign of infection at puncture site: Call the office l documented in this encounter [facility] 11-22-2024 Nurse Note Patient arrived on unit. Name and date verified. Attached to monitors. Vital signs stable. 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 with right great toe ulcer POST-PROCEDURE DIAGNOSIS: As above PROCEDURE PERFORMED: 1) Percutaneous access to the left common femoral artery under ultrasound guidance 2) Aortoiliac angiography 3) Right lower extremity angiography with runoff 4) Selective catheterization of right popliteal artery (third order) 5) Right popliteal artery angioplasty with 5 x 40 mm plain balloon 6) Right superficial femoral artery angioplasty with 5 x 100 plain balloon followed by 5 x 120 mm drug-coated balloon 7) Placement of 5 x 40 mm Cook Zilver Self-Expanding stent to right distal superficial femoral artery 8) Right popliteal artery angioplasty with 5 x 40 mm plain balloon followed by 5 x 40 mm drug coated balloon 9) Right 5 x 40 mm Cook Zilver stent Self-Expandingplacement to right above knee popliteal artery 10) Completion angiography 11) Left femoral angiography 12) Vascade closure to left common femoral artery access site SURGEON: Kristyn Blankenship MD ASSISTANTS: Mehreen Khanna MD (PGY-1) FINDINGS: The infrarenal abdominal aorta is patent. There is an IVC filter present in the inferior vena cava. The bilateral common iliac arteries are patent without evidence of stenosis. There is an area of dissection or saccular aneurysm present in the right common femoral artery. The internal iliac arteries are patent bilaterally as are the bilateral external iliac arteries without evidence of aneurysm or stenosis. The common femoral artery on the right is patent without evidence of stenosis. The profundofemoral artery is patent without evidence of stenosis. The superficial femoral artery is patent in the proximal segment. It becomes occluded at the at the distal portion of the superficial femoral artery. There is reconstitution via profundofemoral artery collaterals of the distal superficial femoral artery. The above-knee popliteal artery is patent. There is moderate stenosis present in the above-knee popliteal artery. The remainder of the popliteal artery is patent. The anterior tibial artery is patent onto the foot. This artery is small in caliber. The tibioperoneal trunk is patent. The peroneal artery is patent to the level of the ankle. The posterior tibial artery becomes occluded shortly after its origin. DP and PT Doppler signals were present bilaterally at the conclusion of the case with a biphasic DP Doppler signal present on the right which is an improvement over the patient's preoperative examination. ANESTHESIA: MAC and 1% lidocaine without epinephrine ESTIMATED BLOOD LOSS: Minimal COMPLICATIONS: None SPECIMENS: None IMPLANTS: 1) 6 x 40 mm Cook Zilver Self Expanding stent to right superficial femoral artery 2) 5 x 40 mm Cook Zilver Self-Expanding stent to right above knee popliteal artery WOUND CLASS: 1 FLUORO TIME: 15.1 min DOSE: 131 mGy CONTRAST: 126.9 ml INDICATIONS FOR PROCEDURE: The patient is an 84 yo female who has developed a right great toe ulceration with associated pain. She has known peripheral arterial disease but had not been experiencing any symptoms prior to this. ABIs performed in 03/2024 shows right Michelle of 0.55. CTA suggested SFA disease. Angiography was recommended for further evaluation, possible intervention, and possible surgical planning. The risks of the procedure were discussed with the patient as well as the patient's [id number] Fidel. They have elected to proceed. PROCEDURE IN DETAIL: The patient was taken to the operating room and placed in the supine position. MAC anesthesia was provided by the anesthesia team. The patient's bilateral groins were prepped and draped in the usual sterile fashion. A timeout was performed verifying the correct patient, side, site, procedure to be performed. Under ultrasound guidance, the patient's left common femoral artery was identified. 1% lidocaine without epinephrine was instilled overlying the artery for local anesthetic. The left common femoral artery was then accessed under ultrasound guidance using a micropuncture needle kit, and Seldinger technique was used to place a 5 Cameroonian sheath. The Bentson wire was positioned in the infrarenal abdominal aorta followed by an Omni Flush catheter. The wire was removed and aortoiliac angiography was performed. The infrarenal abdominal aorta is patent without evidence of aneurysm or stenosis. There is a noted inferior vena cava filter present within the inferior vena cava. The Omni Flush catheter was pulled down to the level of the iliac bifurcation and additional angiography was performed in oblique projection. The bilateral common iliac, external iliac, and internal iliac arteries are patent. There is what appears to be a saccular aneurysm present in the distal common iliac artery on the right. Using the Bentson wire and the Omni Flush catheter, the aortic bifurcation was traversed and the Omni Flush catheter was positioned with its distal tip in the external iliac artery on the right. Right lower extremity angiography was performed with runoff. The common femoral artery on the right is patent without evidence of stenosis. The profundofemoral artery is patent without evidence of stenosis. The superficial femoral artery is patent in the proximal segment. It becomes occluded at the at the distal portion of the superficial femoral artery. There is reconstitution via profundofemoral artery collaterals of the distal superficial femoral artery. The above-knee popliteal artery is patent. There is moderate stenosis present in the above-knee popliteal artery. The remainder of the popliteal artery is patent. The anterior tibial artery is patent onto the foot. This artery is small in caliber. The tibioperoneal trunk is patent. The peroneal artery is patent to the level of the ankle. The posterior tibial artery becomes occluded shortly after its origin. The Bentson wire was then placed through the Omni Flush catheter and the catheter removed. The 5 Cameroonian sheath was exchanged for a long 6 Cameroonian Ansell sheath which was positioned with its distal tip in the external iliac artery on the right. The patient was given 5000 units of heparin for systemic anticoagulation at this time. The Bentson wire was removed and a stiff angled Glidewire was placed through the sheath and access was obtained into the superficial femoral artery. The wire was passed as distally as possible without resistance in the SFA. This was at approximately the level of the SFA occlusion. A CXI catheter and the stiff glidewire was used to cross the lesion. The wire was then passed distally through the popliteal artery and positioned in the distal popliteal artery. The CXI was advanced to this level and the wire was removed. Angiography confirmed appropriate access within the true lumen with continued flow into the tibial vessels. The stiff angled Glidewire was then replaced through the CXI catheter the CXI catheter was removed. Angiography was performed through the sheath which identified the area in the above-knee popliteal artery with moderate stenosis. A 5 x 40 mm plain balloon angioplasty was performed across this area with improvement in flow. The balloon was removed. Angiography was performed through the sheath which showed improvement in this area with approximately 30% stenosis remaining. We next turned our attention to the superficial femoral artery lesion. Plain balloon angioplasty was performed with a 5 x 100 mm plain balloon. This showed significant improvement with inline flow present in the superficial femoral artery however in the mid leg there appeared to be a small dissection flap. A 5 x 120 mm drug-coated balloon was then deployed across the lesion in the area of concern. The balloon was inflated to 8 mmHg for 3 minutes. The balloon was deflated and then removed. Completion angiography showed continued concern for an area of irregularity in the mid superficial femoral artery. Because of this, we elected to place a 6 mm x 40 mm Cook Zilver self-expanding stent across the area. The stent was deployed and postdilated with a 6 x 40 mm plain balloon. Completion angiography showed resolution of the area of irregularity and improvement in flow through the superficial femoral artery. Completion angiography also showed what appeared to be recoil of the above-knee popliteal artery lesion. Plain balloon angioplasty was again performed using a 5 x 40 mm with a prolonged inflation time. Completion angiography following plain balloon angioplasty appeared to show a small dissection flap present in the area of treatment. A 5 x 40 mm drug-coated balloon was then deployed to 8 mmHg for 3 minutes. Completion angiography continued to show an area of dissection. Because of this, a 5 x 40 mm Cook Zilver self-expanding stent was placed across the dissection and deployed. It was postdilated using a 6 x 40 mm plain balloon to 7 mmHg. Completion angiography showed resolution of the dissection and continued flow through the superficial femoral and popliteal arteries. Additionally, there was continued flow into the tibial vessels. The wire and sheath were pulled back. The wire was positioned in the infrarenal abdominal aorta and the distal tip of the Ansell sheath was positioned in the left external iliac artery. Left femoral angiography was performed which showed appropriate placement of access within the common femoral artery on the left. The Ansell sheath was exchanged for a short 6 Cameroonian sheath. A Vascade closure device was deployed at the left femoral access site with success. The patient was also given 30 mg of protamine for reversal of anticoagulation. A sterile dressing was applied. The patient was transferred to the recovery area in stable condition. DP and PT Doppler signals were present bilaterally. The right DP Doppler signal was biphasic and significantly improved over preoperative examination. Kristyn Blankenship MD Vascular Surgery [facility] 11-22-2024 Attending History and physical note H&P reviewed. The patient was examined and there are no changes to the H&P. Plan for right lower extremity angiography with possible SFA/popliteal intervention. I discussed the procedure with the patient and how it is performed. I reiterated the risk of access site complications. The patient's POA Fidel Castillo was also present in the pre-operative area. All questions were answered to their satisfaction. Recent lab work from 11/15/24 in media and reviewed. Creatinine 1.03. Source Note - Kristyn Blankenship MD - 11/05/2024 3:30 PM EDT Vascular Surgery Office Visit Chief Complaint Patient presents with Follow-up R leg pain with great toe wound-PVR and CTA w runoff 03/2024 HISTORY OF PRESENT ILLNESS: The patient is a 84 y.o. female who returns for follow-up of peripheral vascular disease. She also previousy underwent a venous thrombectomy in 03/2024. She has developed a right great toe wound at the tip of the toe. She is blind and is unable to evaluate the wound herself but has been told the wound has been improving. She denies pain except at night when she notices throbbing in the toe and "heat" but otherwise it does not bother her much. She amb[facility] with a walker [facility]T [facility] She is on Eliquis and statin. She is a former smoker. PastMedical History: Past Medical History: Diagnosis Date Arrhythmia PAF Asthma Chronic kidney disease COPD (chronic obstructive pulmonary disease) ([facility]) DVT (deep venous thrombosis) ([facility]) Essential hypertension 03/07/2020 GERD (gastroesophageal reflux disease) Hiatal hernia IBS (irritable bowel syndrome) Pure hypercholesterolemia 03/07/2020 PVD (peripheral vascular disease) ([facility]) Stroke ([facility]) Past Surgical History: Past Surgical History: Procedure Laterality Date ANKLE SURGERY ARM SURGERY (HISTORICAL) Right COLONOSCOPY ESOPHAGEAL DILATION EYE SURGERY Right 07/05/2024 [facility] EYE SURGERY Right 06/2024 , [facility] 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 Authorizing Provider amLODIPine (Norvasc) 5 MG tablet Take 1 tablet (5 mg) by mouth daily. 08/12/24 08/12/25 Kael [facility], apixaban (Eliquis) 5 MG tablet Take 1 tablet (5 mg) by mouth 2 times daily. 08/09/24 Kael [facility], ascorbic acid (Vitamin C) 500 MG tablet Take 500 mg by mouth in the morning and 500 mg at noon and 500 mg in the evening. 06/28/22 Historical Provider, atorvastatin (Lipitor) 80 MG tablet Take 1 tablet (80 mg) by mouth daily. 08/09/24 09/22/24 Kael [facility], lisinopril 40 MG tablet Take 40 mg by mouth daily. 05/26/22 Historical Provider, metoprolol tartrate (Lopressor) 25 MG tablet Take 25 mg by mouth in the morning and 25 mg in the evening. Take with meals. Take with food.. 03/12/24 Historical Provider, prednisoLONE acetate (Pred-Forte) 1 % ophthalmic suspension Administer 1 drop into the right eye every 4 hours. 07/06/24 Red Henderson DO timolol (Timoptic) 0.5 % ophthalmic solution Administer 1 drop into the right eye 2 times daily. 07/06/24 07/06/25 Red Henderson DO Trelegy Ellipta 100-62.5-25 MCG/ACT aerosol powder Take 1 puff by mouth daily. 05/19/23 Historical Provider, Allergies: Advair hfa [fluticasone-salmeterol], Amoxicillin, Amoxicillin-pot clavulanate, and Percocet [oxycodone-acetaminophen] Social History Socioeconomic History Marital status: Spouse name: Not on file Number of children: Not on file Years of education: Not on file Highest education level: Not on file Occupational History Not on file Tobacco Use Smoking status: Former Current packs/day: 0.50 Types: Cigarettes Smokeless tobacco: Never Substance and Sexual Activity Alcohol use: Not Currently Alcohol/week: 1.0 standard drink of alcohol Types: 1 Cans of beer per week Comment: occ Drug use: Never Sexual activity: Not on file Other Topics Concern Not on file Social History Narrative Not on file Social Drivers of Health Financial Resource Strain: Low Risk (06/20/2024) Received from [facility] Financial Resource Strain (CARDIA) Difficulty of Paying Living Expenses: Not very hard Food Insecurity: Patient Unable To Answer (08/03/2024) Hunger Vital Sign Worried About Running Out of Food in the Last Year: Patient unable to answer Ran Out of Food in the Last Year: Patient unable to answer Transportation Needs: Unmet Transportation Needs (08/11/2024) PRAPARE - Transportation Lack of Transportation (Medical): Yes Lack of Transportation (Non-Medical): No Physical Activity: Inactive (04/04/2024) Exercise Vital Sign Days of Exercise per Week: 0 days Minutes of Exercise per Session: 0 min Stress: Patient Unable To Answer (08/03/2024) [employer] [place] [employer] - Occupational Stress Questionnaire Feeling of Stress : Patient unable to answer Social Connections: Unknown (08/03/2024) Social Connection and Isolation Panel [NHANES] Frequency of Communication with Friends and Family: Patient unable to answer Frequency of Social Gatherings with Friends and Family: Patient unable to answer Attends [employer] Services: Patient unable to answer Active Member of Clubs or Organizations: Patient unable to answer Attends Club or Organization Meetings: Never Marital Status: Patient unable to answer Recent Concern: Social Connections - Moderately Isolated (06/20/2024) Received from [facility] Social Connection and Isolation Panel [NHANES] Frequency of Communication with Friends and Family: More than three times a week Frequency of Social Gatherings with Friends and Family: Once a week Attends [employer] Services: More than 4 times per year Active Member of Clubs or Organizations: No Attends Club or Organization Meetings: Never Marital Status: Intimate Partner Violence: Not At Risk (08/11/2024) Humiliation, Afraid, Rape, and Kick questionnaire Fear of Current or Ex-Partner: No Emotionally Abused: No Physically Abused: No Sexually Abused: No Housing Stability: Low Risk (08/11/2024) Housing Stability Vital Sign Unable to Pay for Housing in the Last Year: No Number of Times Moved in the Last Year: 1 Homeless in the Last Year: No Family History Problem Relation Name Age of Onset Melanoma Father Review of Systems Constitutional: Negative. HENT: Negative. Eyes: Negative. Respiratory: Negative. Cardiovascular: Palpitations: afib. Gastrointestinal: Negative. Endocrine: Negative. Genitourinary: Negative. Musculoskeletal: Positive for gait problem (wheelchair). Allergic/Immunologic: Negative. Neurological: Positive for weakness. Hematological: Negative. Psychiatric/Behavioral: Negative. LABS: Lab Results Component Value Date CREATININE 0.91 08/05/2024 Lab Results Component Value Date WBC 7.3 08/05/2024 HGB 10.3 (L) 08/05/2024 HCT 33.3 (L) 08/05/2024 MCV 84.1 08/05/2024 PLT 235 08/05/2024 Lab Results Component Value Date INR 1.0 07/05/2024 INR 2.8 (A) 05/21/2024 INR 2.7 (A) 05/09/2024 PROTIME 11.7 07/05/2024 PROTIME 33.9 (A) 05/21/2024 PROTIME 32.1 (A) 05/09/2024 No results found for: "VLDL" Physical Exam Vitals reviewed. HENT: Head: Normocephalic and atraumatic. Eyes: General: Visual field deficit (blindness bilaterally) present. Extraocular Movements: Extraocular movements intact. Neck: Vascular: No carotid bruit. Cardiovascular: Rate and Rhythm: Normal rate and regular rhythm. Pulses: Carotid pulses are 2+ on the right side and 2+ on the left side. Radial pulses are 2+ on the right side and 2+ on the left side. Dorsalis pedis pulses are detected w/ Doppler on the right side and detected w/ Doppler on the left side. Posterior tibial pulses are detected w/ Doppler on the right side and detected w/ Doppler on the left side. Heart sounds: Normal heart sounds. Pulmonary: Effort: Pulmonary effort is normal. Musculoskeletal: Cervical back: Neck supple. Right lower leg: No edema. Left lower leg: No edema. Right foot: Normal range of motion. Left foot: Normal range of motion. Feet: Right foot: Skin integrity: Skin integrity normal. No ulcer, blister or skin breakdown. Left foot: Skin integrity: Skin integrity normal. No ulcer, blister or skin breakdown. Skin: General: Skin is warm and dry. Neurological: General: No focal deficit present. Mental Status: She is alert and oriented to person, place, and time. GCS: GCS eye subscore is 4. GCS verbal subscore is 5. GCS motor subscore is 6. Sensory: Sensation is intact. Motor: Motor function is intact. Comments: In wheelchair Psychiatric: Mood and Affect: Mood normal. Behavior: Behavior normal. Thought Content: Thought content normal. Judgment: Judgment normal. Arterial studies: PVR performed 04/04/2024: Right side findings: Resting MICHELLE is 0.55. This is moderately decreased. Left side findings: Resting MICHELLE is 0.62. This is moderately decreased. Full PVR not completed secondary to newly diagnosed DVT. CTA abdomen and pelvis performed 04/03/2024: 1. Severe lower extremity atherosclerotic disease. 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 2. 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 3. Severe diverticulosis. IMPRESSION/RECOMMENDATIONS: Problem List Items Addressed This Visit None Visit Diagnoses PAD (peripheral artery disease) (HCC) - Primary Skin ulcer of toe of right foot, limited to breakdown of skin (HCC) Given patient's known peripheral vascular disease and now with development of toe ulceration, I recommend angiography of the right lower extremity with possible intervention. I discussed the procedure with the patient and how it is performed. We discussed the risks of bleeding, infection, damage to surrounding structures, and access site complications. She would like me to discuss this with her [id number]-uha Fidel Castillo. She states she is her POA. I have contacted Fidel via telephone and explained the above and the recommendations for angiography. She will speak with the patient and call the office to let us know how they would like to proceed. Kristyn Blankenship MD Vascular Surgery [facility] Work Phone: 11-22-2024 Note [facility] 11-22-2024 History and physical note H&P reviewed. The patient was examined and there are no changes to the H&P. Plan for right lower extremity angiography with possible SFA/popliteal intervention. I discussed the procedure with the patient and how it is performed. I reiterated the risk of access site complications. The patient's POA Fidel Castillo was also present in the pre-operative area. All questions were answered to their satisfaction. Recent lab work from 11/15/24 in media and reviewed. Creatinine 1.03. Source Note - Kristyn Blankenship MD - 11/05/2024 3:30 PM EDT Vascular Surgery Office Visit Chief Complaint Patient presents with Follow-up R leg pain with great toe wound-PVR and CTA w runoff 03/2024 HISTORY OF PRESENT ILLNESS: The patient is a 84 y.o. female who returns for follow-up of peripheral vascular disease. She also previousy underwent a venous thrombectomy in 03/2024. She has developed a right great toe wound at the tip of the toe. She is blind and is unable to evaluate the wound herself but has been told the wound has been improving. She denies pain except at night when she notices throbbing in the toe and "heat" but otherwise it does not bother her much. She ambulates with a walker with pT [facility]. She is on Eliquis and statin. She is a former smoker. PastMedical History: Past Medical History: Diagnosis Date Arrhythmia PAF Asthma Chronic kidney disease COPD (chronic obstructive pulmonary disease) ([facility]) DVT (deep venous thrombosis) ([facility]) Essential hypertension 03/07/2020 GERD (gastroesophageal reflux disease) Hiatal hernia IBS (irritable bowel syndrome) Pure hypercholesterolemia 03/07/2020 PVD (peripheral vascular disease) ([facility]) Stroke ([facility]) Past Surgical History: Past Surgical History: Procedure Laterality Date ANKLE SURGERY ARM SURGERY (HISTORICAL) Right COLONOSCOPY ESOPHAGEAL DILATION EYE SURGERY Right 07/05/2024 [facility] EYE SURGERY Right 06/2024 , [facility] 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 Authorizing Provider amLODIPine (Norvasc) 5 MG tablet Take 1 tablet (5 mg) by mouth daily. 08/12/24 08/12/25 Kael Anderson, apixaban (Eliquis) 5 MG tablet Take 1 tablet (5 mg) by mouth 2 times daily. 08/09/24 Kael Anderson, ascorbic acid (Vitamin C) 500 MG tablet Take 500 mg by mouth in the morning and 500 mg at noon and 500 mg in the evening. 06/28/22 Historical Provider, atorvastatin (Lipitor) 80 MG tablet Take 1 tablet (80 mg) by mouth daily. 08/09/24 09/22/24 Kael Anderson, DO lisinopril 40 MG tablet Take 40 mg by mouth daily. 05/26/22 Historical Provider, metoprolol tartrate (Lopressor) 25 MG tablet Take 25 mg by mouth in the morning and 25 mg in the evening. Take with meals. Take with food.. 03/12/24 Historical Provider, prednisoLONE acetate (Pred-Forte) 1 % ophthalmic suspension Administer 1 drop into the right eye every 4 hours. 07/06/24 Red Henderson DO timolol (Timoptic) 0.5 % ophthalmic solution Administer 1 drop into the right eye 2 times daily. 07/06/24 07/06/25 Red Henderson DO Trelegy Ellipta 100-62.5-25 MCG/ACT aerosol powder Take 1 puff by mouth daily. 05/19/23 Historical Provider, Allergies: Advair hfa [fluticasone-salmeterol], Amoxicillin, Amoxicillin-pot clavulanate, and Percocet [oxycodone-acetaminophen] Social History Socioeconomic History Marital status: Spouse name: Not on file Number of children: Not on file Years of education: Not on file Highest education level: Not on file Occupational History Not on file Tobacco Use Smoking status: Former Current packs/day: 0.50 Types: Cigarettes Smokeless tobacco: Never Substance and Sexual Activity Alcohol use: Not Currently Alcohol/week: 1.0 standard drink of alcohol Types: 1 Cans of beer per week Comment: occ Drug use: Never Sexual activity: Not on file Other Topics Concern Not on file Social History Narrative Not on file Social Drivers of Health Financial Resource Strain: Low Risk (06/20/2024) Received from [facility] Medical Overall Financial Resource Strain (CARDIA) Difficulty of Paying Living Expenses: Not very hard Food Insecurity: Patient Unable To Answer (08/03/2024) Hunger Vital Sign Worried About Running Out of Food in the Last Year: Patient unable to answer Ran Out of Food in the Last Year: Patient unable to answer Transportation Needs: Unmet Transportation Needs (08/11/2024) PRAPARE - Transportation Lack of Transportation (Medical): Yes Lack of Transportation (Non-Medical): No Physical Activity: Inactive (04/04/2024) Exercise Vital Sign Days of Exercise per Week: 0 days Minutes of Exercise per Session: 0 min Stress: Patient Unable To Answer (08/03/2024) [employer] - Occupational Stress Questionnaire Feeling of Stress : Patient unable to answer Social Connections: Unknown (08/03/2024) Social Connection and Isolation Panel [NHANES] Frequency of Communication with Friends and Family: Patient unable to answer Frequency of Social Gatherings with Friends and Family: Patient unable to answer Attends [employer] Services: Patient unable to answer Active Member of Clubs or Organizations: Patient unable to answer Attends Club or Organization Meetings: Never Marital Status: Patient unable to answer Recent Concern: Social Connections - Moderately Isolated (06/20/2024) Received from [facility] Social Connection and Isolation Panel [NHANES] Frequency of Communication with Friends and Family: More than three times a week Frequency of Social Gatherings with Friends and Family: Once a week Attends [employer] Services: More than 4 times per year Active Member of Clubs or Organizations: No Attends Club or Organization Meetings: Never Marital Status: Intimate Partner Violence: Not At Risk (08/11/2024) Humiliation, Afraid, Rape, and Kick questionnaire Fear of Current or Ex-Partner: No Emotionally Abused: No Physically Abused: No Sexually Abused: No Housing Stability: Low Risk (08/11/2024) Housing Stability Vital Sign Unable to Pay for Housing in the Last Year: No Number of Times Moved in the Last Year: 1 Homeless in the Last Year: No Family History Problem Relation Name Age of Onset Melanoma Father Review of Systems Constitutional: Negative. HENT: Negative. Eyes: Negative. Respiratory: Negative. Cardiovascular: Palpitations: afib. Gastrointestinal: Negative. Endocrine: Negative. Genitourinary: Negative. Musculoskeletal: Positive for gait problem (wheelchair). Allergic/Immunologic: Negative. Neurological: Positive for weakness. Hematological: Negative. Psychiatric/Behavioral: Negative. LABS: Lab Results Component Value Date CREATININE 0.91 08/05/2024 Lab Results Component Value Date WBC 7.3 08/05/2024 HGB 10.3 (L) 08/05/2024 HCT 33.3 (L) 08/05/2024 MCV 84.1 08/05/2024 PLT 235 08/05/2024 Lab Results Component Value Date INR 1.0 07/05/2024 INR 2.8 (A) 05/21/2024 INR 2.7 (A) 05/09/2024 PROTIME 11.7 07/05/2024 PROTIME 33.9 (A) 05/21/2024 PROTIME 32.1 (A) 05/09/2024 No results found for: "VLDL" Physical Exam Vitals reviewed. HENT: Head: Normocephalic and atraumatic. Eyes: General: Visual field deficit (blindness bilaterally) present. Extraocular Movements: Extraocular movements intact. Neck: Vascular: No carotid bruit. Cardiovascular: Rate and Rhythm: Normal rate and regular rhythm. Pulses: Carotid pulses are 2+ on the right side and 2+ on the left side. Radial pulses are 2+ on the right side and 2+ on the left side. Dorsalis pedis pulses are detected w/ Doppler on the right side and detected w/ Doppler on the left side. Posterior tibial pulses are detected w/ Doppler on the right side and detected w/ Doppler on the left side. Heart sounds: Normal heart sounds. Pulmonary: Effort: Pulmonary effort is normal. Musculoskeletal: Cervical back: Neck supple. Right lower leg: No edema. Left lower leg: No edema. Right foot: Normal range of motion. Left foot: Normal range of motion. Feet: Right foot: Skin integrity: Skin integrity normal. No ulcer, blister or skin breakdown. Left foot: Skin integrity: Skin integrity normal. No ulcer, blister or skin breakdown. Skin: General: Skin is warm and dry. Neurological: General: No focal deficit present. Mental Status: She is alert and oriented to person, place, and time. GCS: GCS eye subscore is 4. GCS verbal subscore is 5. GCS motor subscore is 6. Sensory: Sensation is intact. Motor: Motor function is intact. Comments: In wheelchair Psychiatric: Mood and Affect: Mood normal. Behavior: Behavior normal. Thought Content: Thought content normal. Judgment: Judgment normal. Arterial studies: PVR performed 04/04/2024: Right side findings: Resting MICHELLE is 0.55. This is moderately decreased. Left side findings: Resting MICHELLE is 0.62. This is moderately decreased. Full PVR not completed secondary to newly diagnosed DVT. CTA abdomen and pelvis performed 04/03/2024: 1. Severe lower extremity atherosclerotic disease. 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 2. 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 3. Severe diverticulosis. IMPRESSION/RECOMMENDATIONS: Problem List Items Addressed This Visit None Visit Diagnoses PAD (peripheral artery disease) (HCC) - Primary Skin ulcer of toe of right foot, limited to breakdown of skin (HCC) Given patient's known peripheral vascular disease and now with development of toe ulceration, I recommend angiography of the right lower extremity with possible intervention. I discussed the procedure with the patient and how it is performed. We discussed the risks of bleeding, infection, damage to surrounding structures, and access site complications. She would like me to discuss this with her [id number]-jpo Fidel Castillo. She states she is her POA. I have contacted Fidel via telephone and explained the above and the recommendations for angiography. She will speak with the patient and call the office to let us know how they would like to proceed. 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 Mailbox full & unable to leave voicemail. [facility] 11-05-2024 History of Present illness Narrative Vascular Surgery Office Visit Chief Complaint Patient presents with Follow-up R leg pain with great toe wound-PVR and CTA w runoff 03/2024 HISTORY OF PRESENT ILLNESS: The patient is a 84 y.o. female who returns for follow-up of peripheral vascular disease. She also previousy underwent a venous thrombectomy in 03/2024. She has developed a right great toe wound at the tip of the toe. She is blind and is unable to evaluate the wound herself but has been told the wound has been improving. She denies pain except at night when she notices throbbing in the toe and "heat" but otherwise it does not bother her much. She amb[facility] with a walker [facility] She is on Eliquis and statin. She is a former smoker. PastMedical History: Past Medical History: Diagnosis Date Arrhythmia PAF Asthma Chronic kidney disease COPD (chronic obstructive pulmonary disease) (HCC) DVT (deep venous thrombosis) (HCC) Essential hypertension 03/07/2020 GERD (gastroesophageal reflux disease) Hiatal hernia IBS (irritable bowel syndrome) Pure hypercholesterolemia 03/07/2020 PVD (peripheral vascular disease) (HCC) Stroke (HCC) Past Surgical History: Past Surgical History: Procedure Laterality Date ANKLE SURGERY ARM SURGERY (HISTORICAL) Right COLONOSCOPY ESOPHAGEAL DILATION EYE SURGERY Right 07/05/2024 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 Authorizing Provider amLODIPine (Norvasc) 5 MG tablet Take 1 tablet (5 mg) by mouth daily. 08/12/24 08/12/25 Kael Anderson DO apixaban (Eliquis) 5 MG tablet Take 1 tablet (5 mg) by mouth 2 times daily. 08/09/24 Kael Anderson DO ascorbic acid (Vitamin C) 500 MG tablet Take 500 mg by mouth in the morning and 500 mg at noon and 500 mg in the evening. 06/28/22 Historical Provider, atorvastatin (Lipitor) 80 MG tablet Take 1 tablet (80 mg) by mouth daily. 08/09/24 09/22/24 Kael Anderson DO lisinopril 40 MG tablet Take 40 mg by mouth daily. 05/26/22 Historical Provider, metoprolol tartrate (Lopressor) 25 MG tablet Take 25 mg by mouth in the morning and 25 mg in the evening. Take with meals. Take with food.. 03/12/24 Historical Provider, prednisoLONE acetate (Pred-Forte) 1 % ophthalmic suspension Administer 1 drop into the right eye every 4 hours. 07/06/24 Red Henderson DO timolol (Timoptic) 0.5 % ophthalmic solution Administer 1 drop into the right eye 2 times daily. 07/06/24 07/06/25 Red Henderson DO Trelegy Ellipta 100-62.5-25 MCG/ACT aerosol powder Take 1 puff by mouth daily. 05/19/23 Historical Provider, Allergies: Advair hfa [fluticasone-salmeterol], Amoxicillin, Amoxicillin-pot clavulanate, and Percocet [oxycodone-acetaminophen] Social History Socioeconomic History Marital status: Spouse name: Not on file Number of children: Not on file Years of education: Not on file Highest education level: Not on file Occupational History Not on file Tobacco Use Smoking status: Former Current packs/day: 0.50 Types: Cigarettes Smokeless tobacco: Never Substance and Sexual Activity Alcohol use: Not Currently Alcohol/week: 1.0 standard drink of alcohol Types: 1 Cans of beer per week Comment: occ Drug use: Never Sexual activity: Not on file Other Topics Concern Not on file Social History Narrative Not on file Social Drivers of Health Financial Resource Strain: Low Risk (06/20/2024) Received from [facility] Medical Overall Financial Resource Strain (CARDIA) Difficulty of Paying Living Expenses: Not very hard Food Insecurity: Patient Unable To Answer (08/03/2024) Hunger Vital Sign Worried About Running Out of Food in the Last Year: Patient unable to answer Ran Out of Food in the Last Year: Patient unable to answer Transportation Needs: Unmet Transportation Needs (08/11/2024) PRAPARE - Transportation Lack of Transportation (Medical): Yes Lack of Transportation (Non-Medical): No Physical Activity: Inactive (04/04/2024) Exercise Vital Sign Days of Exercise per Week: 0 days Minutes of Exercise per Session: 0 min Stress: Patient Unable To Answer (08/03/2024) [employer] - Occupational Stress Questionnaire Feeling of Stress : Patient unable to answer Social Connections: Unknown (08/03/2024) Social Connection and Isolation Panel [NHANES] Frequency of Communication with Friends and Family: Patient unable to answer Frequency of Social Gatherings with Friends and Family: Patient unable to answer Attends [employer] Services: Patient unable to answer Active Member of Clubs or Organizations: Patient unable to answer Attends Club or Organization Meetings: Never Marital Status: Patient unable to answer Recent Concern: Social Connections - Moderately Isolated (06/20/2024) Received from [facility] Social Connection and Isolation Panel [NHANES] Frequency of Communication with Friends and Family: More than three times a week Frequency of Social Gatherings with Friends and Family: Once a week Attends Advent Services: More than 4 times per year Active Member of Clubs or Organizations: No Attends Club or Organization Meetings: Never Marital Status: Intimate Partner Violence: Not At Risk (08/11/2024) Humiliation, Afraid, Rape, and Kick questionnaire Fear of Current or Ex-Partner: No Emotionally Abused: No Physically Abused: No Sexually Abused: No Housing Stability: Low Risk (08/11/2024) Housing Stability Vital Sign Unable to Pay for Housing in the Last Year: No Number of Times Moved in the Last Year: 1 Homeless in the Last Year: No Family History Problem Relation Name Age of Onset Melanoma Father Review of Systems Constitutional: Negative. HENT: Negative. Eyes: Negative. Respiratory: Negative. Cardiovascular: Palpitations: afib. Gastrointestinal: Negative. Endocrine: Negative. Genitourinary: Negative. Musculoskeletal: Positive for gait problem (wheelchair). Allergic/Immunologic: Negative. Neurological: Positive for weakness. Hematological: Negative. Psychiatric/Behavioral: Negative. LABS: Lab Results Component Value Date CREATININE 0.91 08/05/2024 Lab Results Component Value Date WBC 7.3 08/05/2024 HGB 10.3 (L) 08/05/2024 HCT 33.3 (L) 08/05/2024 MCV 84.1 08/05/2024 PLT 235 08/05/2024 Lab Results Component Value Date INR 1.0 07/05/2024 INR 2.8 (A) 05/21/2024 INR 2.7 (A) 05/09/2024 PROTIME 11.7 07/05/2024 PROTIME 33.9 (A) 05/21/2024 PROTIME 32.1 (A) 05/09/2024 No results found for: "VLDL" Physical Exam Vitals reviewed. HENT: Head: Normocephalic and atraumatic. Eyes: General: Visual field deficit (blindness bilaterally) present. Extraocular Movements: Extraocular movements intact. Neck: Vascular: No carotid bruit. Cardiovascular: Rate and Rhythm: Normal rate and regular rhythm. Pulses: Carotid pulses are 2+ on the right side and 2+ on the left side. Radial pulses are 2+ on the right side and 2+ on the left side. Dorsalis pedis pulses are detected w/ Doppler on the right side and detected w/ Doppler on the left side. Posterior tibial pulses are detected w/ Doppler on the right side and detected w/ Doppler on the left side. Heart sounds: Normal heart sounds. Pulmonary: Effort: Pulmonary effort is normal. Musculoskeletal: Cervical back: Neck supple. Right lower leg: No edema. Left lower leg: No edema. Right foot: Normal range of motion. Left foot: Normal range of motion. Feet: Right foot: Skin integrity: Skin integrity normal. No ulcer, blister or skin breakdown. Left foot: Skin integrity: Skin integrity normal. No ulcer, blister or skin breakdown. Skin: General: Skin is warm and dry. Neurological: General: No focal deficit present. Mental Status: She is alert and oriented to person, place, and time. GCS: GCS eye subscore is 4. GCS verbal subscore is 5. GCS motor subscore is 6. Sensory: Sensation is intact. Motor: Motor function is intact. Comments: In wheelchair Psychiatric: Mood and Affect: Mood normal. Behavior: Behavior normal. Thought Content: Thought content normal. Judgment: Judgment normal. Arterial studies: PVR performed 04/04/2024: Right side findings: Resting MICHELLE is 0.55. This is moderately decreased. Left side findings: Resting MICHELLE is 0.62. This is moderately decreased. Full PVR not completed secondary to newly diagnosed DVT. CTA abdomen and pelvis performed 04/03/2024: 1. Severe lower extremity atherosclerotic disease. 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 2. 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 3. Severe diverticulosis. IMPRESSION/RECOMMENDATIONS: Problem List Items Addressed This Visit None Visit Diagnoses PAD (peripheral artery disease) (HCC) - Primary Skin ulcer of toe of right foot, limited to breakdown of skin (HCC) Given patient's known peripheral vascular disease and now with development of toe ulceration, I recommend angiography of the right lower extremity with possible intervention. I discussed the procedure with the patient and how it is performed. We discussed the risks of bleeding, infection, damage to surrounding structures, and access site complications. She would like me to discuss this with her [id number] Fidel Castillo. She states she is her POA. I have contacted Fidel via telephone and explained the above and the recommendations for angiography. She will speak with the patient and call the office to let us know how they would like to proceed. Kristyn Blankenship MD Vascular Surgery documented in this encounter [facility] 11-05-2024 Note [facility] 10-01-2024 Note Date of Procedure 10/01/2024. Senior Net Developer Information CATALINA Donovan CDOS 10/01/2024 10:58 AM . Notes Interpretation of Ultrasound: ( B-Scan) Eye: OD (done from pt's wheel chair with areas of limited view due to gas bubble, inferior and superior Mild vitreous opacities Decrease in the height of the 360 degrees hemorrhagic choroidals Maximal height is at 12:00 E is 4.6 mm The retina is detached in most clock hours with subretinal fluid and areas of focal adherence to the choroid [facility] 10-01-2024 Instructions Savana Lopez MD - 10/01/2024 12:22 PM EDT Continue Prednisolone eye drops one drop two times per day right eye Discontinue Timolol eye drops right eye documented in this encounter [facility] 10-01-2024 Note HNO ID: [id number] Author: SAVANA LOPEZ MD Service: ? Author Type: Physician Type: Progress Notes Filed: 10/01/2024 13:42 Note Text: Can see shadows; No pain right eye S/p choroidal drainage right eye on 07/13/24 for choroidal hemorrhage with repositioning of IOL (Mammo/Luis Alberto) POM#2 Choroidal drainage/PPV/EL/PFO/FAX/C3F8 (16%) RIGHT eye on 07/27/24 for choroidal hemorrhage and retinal detachment (Mammo/Luis Alberto) - LP vision - AC with improving height of hyphema (4.0mm to 2.6mm) - Unfortunately limited VA potential limited by hemorrhagic choroidals and detached retina - B scan 10/01/24 Mild vitreous opacities; Decrease in the height of the 360 degrees hemorrhagic choroidals Maximal height is at 12:00 E is 4.6 mm The retina is detached in most clock hours with subretinal fluid and areas of focal adherence to the choroid Plan = - Extensive discussion today about repeat surgery OD (would do PPV/SB/AC washout/probably retinectomy/SO/MTX OD) vs observation - I explained poor prognosis and low chance of improvement, good chance of vision staying same, and chance also of NLP vision - Explained downsides to continued RD - patient elects monitor for now; against another surgery; unfortunately they had high bills from prior surgery - Continue PF BID OD - STOP Timolol QAM OD PMH: COPD, HLD, HTN, Afib (on apixaban), CKD 3, L retinal detachment, nicotine use, severe LE PAD, recurrent embolic events, 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), hx DVT s/p right venous thrombectomy, 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, right eye Exudative retinal detachment, right eye PCIOL Subluxation, right eye Course: - 06/10/24 presented to OSH with dizziness, dysarthria and dysphagia found to have acute infarcts in the left hippocampal head and the right cerebellar hemisphere - 06/19/24: Admitted to rehab center and discharged home 07/03/24, had significant right eye tearing but no pain or visual changes - 07/04/2024 noted blurriness in her vision, that subsequently slightly improved over the course of the day - 07/05/24 woke up with severe pain behind her right eye, complete loss of vision (seeing purple/red), swelling of her right eye with significant redness, nausea and vomiting - Presented to the ED, evaluated by ophthalmology (Dr. 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 Possible increased height maximum remains at 12:00 measuring 10.6 mm s/p drainage 07/12/24 (previously 10.0 mm) 2. Able to slightly assess for mobility today, only pockets were seen 3. SRF over choroidals in all quadrants and retina appears more off for 6:00 to 12:00 - B-scan OD 07/23/23 1. 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 Possible decrease in maximal height which remains at 12:00 measuring 10.0 mm today (s/p drainage 07/12/24) (previously 10.6 mm) 2. Able to slightly assess for mobility today, only pockets were seen 3. SRF over choroidals in all quadrants and retina appears more off but difficult to discern clock hour today - Post op Week 1 s/p choroidal drainage right eye on 07/13/24 for choroidal hemorrhage with repositioning of IOL - Took to OR for worsening pain and IOP; significant clotting; some heme drained but not much - Post-op with significantly improved pain but persistent choroidals Assessment: - 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 (SBP 199/99 at presentation to [facility]) and anticoagulation that led to angle closure and elevated IOP - Alternatively IOP change s/p LPI may have led to hemorrhagic choroidals but since pseudophakic, would be rare to have developed acute angle closure - Patient adamantly denies any trauma but did have significant eye tearing with rubbing of eye day prior to development of symptoms See above I have confirmed and edited as necessary the relevant ophthalmic history, ROS, reviewed the HPI and the neuro exam findings as obtained by others. I have seen and examined this patient. I have discussed the case and the management of this patient's care with the Resident, if applicable. I also have reviewed and agree with the assessment and plan as stated above and agree with al (more content not included)... [facility] 10-01-2024 History of Present illness Narrative Can see shadows; No pain right eye S/p choroidal drainage right eye on 07/13/24 for choroidal hemorrhage with repositioning of IOL (Mammo/Luis Alberto) POM#2 Choroidal drainage/PPV/EL/PFO/FAX/C3F8 (16%) RIGHT eye on 07/27/24 for choroidal hemorrhage and retinal detachment (Mammo/Luis Alberto) - LP vision - AC with improving height of hyphema (4.0mm to 2.6mm) - Unfortunately limited VA potential limited by hemorrhagic choroidals and detached retina - B scan 10/01/24 Mild vitreous opacities; Decrease in the height of the 360 degrees hemorrhagic choroidals Maximal height is at 12:00 E is 4.6 mm The retina is detached in most clock hours with subretinal fluid and areas of focal adherence to the choroid Plan = - Extensive discussion today about repeat surgery OD (would do PPV/SB/AC washout/probably retinectomy/SO/MTX OD) vs observation - I explained poor prognosis and low chance of improvement, good chance of vision staying same, and chance also of NLP vision - Explained downsides to continued RD - patient elects monitor for now; against another surgery; unfortunately they had high bills from prior surgery - Continue PF BID OD - STOP Timolol QAM OD PMH: COPD, HLD, HTN, Afib (on apixaban), CKD 3, L retinal detachment, nicotine use, severe LE PAD, recurrent embolic events, 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), hx DVT s/p right venous thrombectomy, 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, right eye Exudative retinal detachment, right eye PCIOL Subluxation, right eye Course: - 06/10/24 presented to OSH with dizziness, dysarthria and dysphagia found to have acute infarcts in the left hippocampal head and the right cerebellar hemisphere - 06/19/24: Admitted to rehab center and discharged home 07/03/24, had significant right eye tearing but no pain or visual changes - 07/04/2024 noted blurriness in her vision, that subsequently slightly improved over the course of the day - 07/05/24 woke up with severe pain behind her right eye, complete loss of vision (seeing purple/red), swelling of her right eye with significant redness, nausea and vomiting - Presented to the ED, evaluated by ophthalmology (Dr. 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 Possible increased height maximum remains at 12:00 measuring 10.6 mm s/p drainage 07/12/24 (previously 10.0 mm) 2. Able to slightly assess for mobility today, only pockets were seen 3. SRF over choroidals in all quadrants and retina appears more off for 6:00 to 12:00 - B-scan OD 07/23/23 1. 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 Possible decrease in maximal height which remains at 12:00 measuring 10.0 mm today (s/p drainage 07/12/24) (previously 10.6 mm) 2. Able to slightly assess for mobility today, only pockets were seen 3. SRF over choroidals in all quadrants and retina appears more off but difficult to discern clock hour today - Post op Week 1 s/p choroidal drainage right eye on 07/13/24 for choroidal hemorrhage with repositioning of IOL - Took to OR for worsening pain and IOP; significant clotting; some heme drained but not much - Post-op with significantly improved pain but persistent choroidals Assessment: - 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 (SBP 199/99 at presentation to [facility]) and anticoagulation that led to angle closure and elevated IOP - Alternatively IOP change s/p LPI may have led to hemorrhagic choroidals but since pseudophakic, would be rare to have developed acute angle closure - Patient adamantly denies any trauma but did have significant eye tearing with rubbing of eye day prior to development of symptoms See above I have confirmed and edited as necessary the relevant ophthalmic history, ROS, reviewed the HPI and the neuro exam findings as obtained by others. I have seen and examined this patient. I have discussed the case and the management of this patient's care with the Resident, if applicable. I also have reviewed and agree with the assessment and plan as stated above and agree with all of its relevant components. documented in this encounter [facility] 09-05-2024 History of Present illness Narrative - s/p choroidal drainage right eye on 07/13/24 for choroidal hemorrhage with repositioning of IOL (Mammo/Luis Alberto) POM#1 Choroidal drainage/PPV/EL/PFO/FAX/C3F8 (16%) RIGHT eye on 07/27/24 for choroidal hemorrhage and retinal detachment (Mammo/Luis Alberto) - LP vision - IOP good - AC 4.0 mm hyphema and VH posteriorly - Unfortunately limited VA potential limited by hemorrhagic choroidals - No B-scan [facility] Plan = - Decrease Pred BID OD - Decreases Timolol QAM OD - Continue antibiotic ointment as needed - Retinal detachment/endophthalmitis/gas bubble precautions discussed PMH: COPD, HLD, HTN, Afib (on apixaban), CKD 3, L retinal detachment, nicotine use, severe LE PAD, recurrent embolic events, 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), hx DVT s/p right venous thrombectomy, 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, right eye Exudative retinal detachment, right eye PCIOL Subluxation, right eye Course: - 06/10/24 presented to OSH with dizziness, dysarthria and dysphagia found to have acute infarcts in the left hippocampal head and the right cerebellar hemisphere - 06/19/24: Admitted to rehab center and discharged home 07/03/24, had significant right eye tearing but no pain or visual changes - 07/04/2024 noted blurriness in her vision, that subsequently slightly improved over the course of the day - 07/05/24 woke up with severe pain behind her right eye, complete loss of vision (seeing purple/red), swelling of her right eye with significant redness, nausea and vomiting - Presented to the ED, evaluated by ophthalmology (Dr. 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 Possible increased height maximum remains at 12:00 measuring 10.6 mm s/p drainage 07/12/24 (previously 10.0 mm) 2. Able to slightly assess for mobility today, only pockets were seen 3. SRF over choroidals in all quadrants and retina appears more off for 6:00 to 12:00 - B-scan OD 07/23/23 1. 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 Possible decrease in maximal height which remains at 12:00 measuring 10.0 mm today (s/p drainage 07/12/24) (previously 10.6 mm) 2. Able to slightly assess for mobility today, only pockets were seen 3. SRF over choroidals in all quadrants and retina appears more off but difficult to discern clock hour today - Post op Week 1 s/p choroidal drainage right eye on 07/13/24 for choroidal hemorrhage with repositioning of IOL - Took to OR for worsening pain and IOP; significant clotting; some heme drained but not much - Post-op with significantly improved pain but persistent choroidals Assessment: - 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 (SBP 199/99 at presentation to [facility]) and anticoagulation that led to angle closure and elevated IOP - Alternatively IOP change s/p LPI may have led to hemorrhagic choroidals but since pseudophakic, would be rare to have developed acute angle closure - Patient adamantly denies any trauma but did have significant eye tearing with rubbing of eye day prior to development of symptoms See above I have confirmed and edited as necessary the relevant ophthalmic history, ROS, reviewed the HPI and the neuro exam findings as obtained by others. I have seen and examined this patient. I have discussed the case and the management of this patient's care with the Resident, if applicable. I also have reviewed and agree with the assessment and plan as stated above and agree with all of its relevant components. documented in this encounter [facility] 09-05-2024 Note HNO ID: [id number] Author: SAVANA LOPEZ MD Service: ? Author Type: Physician Type: Progress Notes Filed: 09/05/2024 10:56 Note Text: - s/p choroidal drainage right eye on 07/13/24 for choroidal hemorrhage with repositioning of IOL (Mammo/Luis Alberto) POM#1 Choroidal drainage/PPV/EL/PFO/FAX/C3F8 (16%) RIGHT eye on 07/27/24 for choroidal hemorrhage and retinal detachment (Mammo/Luis Alberto) - LP vision - IOP good - AC 4.0 mm hyphema and VH posteriorly - Unfortunately limited VA potential limited by hemorrhagic choroidals - No B-scan [facility] Plan = - Decrease Pred BID OD - Decreases Timolol QAM OD - Continue antibiotic ointment as needed - Retinal detachment/endophthalmitis/gas bubble precautions discussed PMH: COPD, HLD, HTN, Afib (on apixaban), CKD 3, L retinal detachment, nicotine use, severe LE PAD, recurrent embolic events, 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), hx DVT s/p right venous thrombectomy, 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, right eye Exudative retinal detachment, right eye PCIOL Subluxation, right eye Course: - 06/10/24 presented to OSH with dizziness, dysarthria and dysphagia found to have acute infarcts in the left hippocampal head and the right cerebellar hemisphere - 06/19/24: Admitted to rehab center and discharged home 07/03/24, had significant right eye tearing but no pain or visual changes - 07/04/2024 noted blurriness in her vision, that subsequently slightly improved over the course of the day - 07/05/24 woke up with severe pain behind her right eye, complete loss of vision (seeing purple/red), swelling of her right eye with significant redness, nausea and vomiting - Presented to the ED, evaluated by ophthalmology (Dr. 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 Possible increased height maximum remains at 12:00 measuring 10.6 mm s/p drainage 07/12/24 (previously 10.0 mm) 2. Able to slightly assess for mobility today, only pockets were seen 3. SRF over choroidals in all quadrants and retina appears more off for 6:00 to 12:00 - B-scan OD 07/23/23 1. 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 Possible decrease in maximal height which remains at 12:00 measuring 10.0 mm today (s/p drainage 07/12/24) (previously 10.6 mm) 2. Able to slightly assess for mobility today, only pockets were seen 3. SRF over choroidals in all quadrants and retina appears more off but difficult to discern clock hour today - Post op Week 1 s/p choroidal drainage right eye on 07/13/24 for choroidal hemorrhage with repositioning of IOL - Took to OR for worsening pain and IOP; significant clotting; some heme drained but not much - Post-op with significantly improved pain but persistent choroidals Assessment: - 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 (SBP 199/99 at presentation to [facility]) and anticoagulation that led to angle closure and elevated IOP - Alternatively IOP change s/p LPI may have led to hemorrhagic choroidals but since pseudophakic, would be rare to have developed acute angle closure - Patient adamantly denies any trauma but did have significant eye tearing with rubbing of eye day prior to development of symptoms See above I have confirmed and edited as necessary the relevant ophthalmic history, ROS, reviewed the HPI and the neuro exam findings as obtained by others. I have seen and examined this patient. I have discussed the case and the management of this patient's care with the Resident, if applicable. I also have reviewed and agree with the assessment and plan as stated above and agree with all of its relevant components. [facility] 08-22-2024 History of Present illness Narrative [facility] Vascular Surgery Follow-up Office Visit CHIEF COMPLAINT: Chief Complaint Patient presents with Follow-up 3 month follow up, PAD check [facility] HISTORY OF PRESENT ILLNESS: Mel Pop is a 83 y.o. female who returns today for follow-up for peripheral artery disease and history of venous thrombectomy in 03/2024. She is s/p right venous thrombectomy last year with Dr. Blankenship. She states her right leg is doing well. She denies any significant edema or heaviness. She is tolerating anticoagulation. She had PVR last year showing bilateral arterial disease. She states she is ambulating with walker with PT at [facility] without difficulty. She denies any rest pain at night or any nonhealing wounds. Currently taking the following medications for vascular risk factor modification: Antiplatelet/Anticoagulant: Eliquis Statin: atorvastatin Smoking Status: not currently smoking Past Medical History: Past Medical History: Diagnosis Date Arrhythmia PAF Asthma Chronic kidney disease COPD (chronic obstructive pulmonary disease) (HCC) DVT (deep venous thrombosis) (HCC) Essential hypertension 03/07/2020 GERD (gastroesophageal reflux disease) Hiatal hernia IBS (irritable bowel syndrome) Pure hypercholesterolemia 03/07/2020 PVD (peripheral vascular disease) (HCC) Stroke (HCC) Past Surgical History: Past Surgical History: Procedure Laterality Date ANKLE SURGERY ARM SURGERY (HISTORICAL) Right COLONOSCOPY ESOPHAGEAL DILATION EYE SURGERY Right 07/05/2024 ACH EYE SURGERY Right 06/2024 x2, [facility] 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 HYSTERECTOMY ORTHOPEDIC SURGERY THROMBECTOMY Right 04/06/2024 RLE mechanical thrombectomy (Krzysztof) Current Medications: Current Outpatient Medications: amLODIPine (Norvasc) 5 MG tablet, Take 1 tablet (5 mg) by mouth daily., Disp: , Rfl: apixaban (Eliquis) 5 MG tablet, Take 1 tablet (5 mg) by mouth 2 times daily., Disp: , Rfl: ascorbic acid (Vitamin C) 500 MG tablet, Take 500 mg by mouth in the morning and 500 mg at noon and 500 mg in the evening., Disp: , Rfl: atorvastatin (Lipitor) 80 MG tablet, Take 1 tablet (80 mg) by mouth daily., Disp: , Rfl: lisinopril 40 MG tablet, Take 40 mg by mouth daily., Disp: , Rfl: metoprolol tartrate (Lopressor) 25 MG tablet, Take 25 mg by mouth in the morning and 25 mg in the evening. Take with meals. Take with food.., Disp: , Rfl: prednisoLONE acetate (Pred-Forte) 1 % ophthalmic suspension, Administer 1 drop into the right eye every 4 hours., Disp: , Rfl: timolol (Timoptic) 0.5 % ophthalmic solution, Administer 1 drop into the right eye 2 times daily., Disp: , Rfl: Trelegy Ellipta 100-62.5-25 MCG/ACT aerosol powder , Take 1 puff by mouth daily., Disp: , Rfl: Allergies: Advair hfa [fluticasone-salmeterol], Amoxicillin, Amoxicillin-pot clavulanate, and Percocet [oxycodone-acetaminophen] Social History: Social History Socioeconomic History Marital status: Spouse name: Not on file Number of children: Not on file Years of education: Not on file Highest education level: Not on file Occupational History Not on file Tobacco Use Smoking status: Former Current packs/day: 0.50 Types: Cigarettes Smokeless tobacco: Never Substance and Sexual Activity Alcohol use: Not Currently Alcohol/week: 1.0 standard drink of alcohol Types: 1 Cans of beer per week Comment: occ Drug use: Never Sexual activity: Not on file Other Topics Concern Not on file Social History Narrative Not on file Social Drivers of Health Financial Resource Strain: Low Risk (06/20/2024) Received from [facility] Medical Overall Financial Resource Strain (CARDIA) Difficulty of Paying Living Expenses: Not very hard Food Insecurity: Patient Unable To Answer (08/03/2024) Hunger Vital Sign Worried About Running Out of Food in the Last Year: Patient unable to answer Ran Out of Food in the Last Year: Patient unable to answer Transportation Needs: Unmet Transportation Needs (08/11/2024) PRAPARE - Transportation Lack of Transportation (Medical): Yes Lack of Transportation (Non-Medical): No Physical Activity: Inactive (04/04/2024) Exercise Vital Sign Days of Exercise per Week: 0 days Minutes of Exercise per Session: 0 min Stress: Patient Unable To Answer (08/03/2024) [employer] - Occupational Stress Questionnaire Feeling of Stress : Patient unable to answer Social Connections: Unknown (08/03/2024) Social Connection and Isolation Panel [NHANES] Frequency of Communication with Friends and Family: Patient unable to answer Frequency of Social Gatherings with Friends and Family: Patient unable to answer Attends [employer] Services: Patient unable to answer Active Member of Clubs or Organizations: Patient unable to answer Attends Club or Organization Meetings: Never Marital Status: Patient unable to answer Recent Concern: Social Connections - Moderately Isolated (06/20/2024) Received from [facility] Social Connection and Isolation Panel [NHANES] Frequency of Communication with Friends and Family: More than three times a week Frequency of Social Gatherings with Friends and Family: Once a week Attends [employer] Services: More than 4 times per year Active Member of Clubs or Organizations: No Attends Club or Organization Meetings: Never Marital Status: Intimate Partner Violence: Not At Risk (08/11/2024) Humiliation, Afraid, Rape, and Kick questionnaire Fear of Current or Ex-Partner: No Emotionally Abused: No Physically Abused: No Sexually Abused: No Housing Stability: Low Risk (08/11/2024) Housing Stability Vital Sign Unable to Pay for Housing in the Last Year: No Number of Times Moved in the Last Year: 1 Homeless in the Last Year: No Family History: Family History Problem Relation Name Age of Onset Melanoma Father REVIEW OF SYSTEMS: Review of Systems Constitutional: Negative. HENT: Negative. Eyes: Positive for visual disturbance (blindness). Respiratory: Negative. Cardiovascular: Negative. Gastrointestinal: Negative. Endocrine: Negative. Genitourinary: Negative. Musculoskeletal: Positive for gait problem (WC for distance, PT following). Skin: Negative. Allergic/Immunologic: Negative. Hematological: Negative. Psychiatric/Behavioral: Negative. LABS: Lab Results Component Value Date CREATININE 0.91 08/05/2024 Lab Results Component Value Date WBC 7.3 08/05/2024 HGB 10.3 (L) 08/05/2024 HCT 33.3 (L) 08/05/2024 MCV 84.1 08/05/2024 PLT 235 08/05/2024 Lab Results Component Value Date INR 1.0 07/05/2024 INR 2.8 (A) 05/21/2024 INR 2.7 (A) 05/09/2024 PROTIME 11.7 07/05/2024 PROTIME 33.9 (A) 05/21/2024 PROTIME 32.1 (A) 05/09/2024 No results found for: "VLDL" PHYSICAL EXAM: Vitals: 08/22/24 1032 BP: 104/62 Resp: 18 Physical Exam Vitals reviewed. HENT: Head: Normocephalic and atraumatic. Eyes: General: Visual field deficit (blindness bilaterally) present. Extraocular Movements: Extraocular movements intact. Neck: Vascular: No carotid bruit. Cardiovascular: Rate and Rhythm: Normal rate and regular rhythm. Pulses: Carotid pulses are 2+ on the right side and 2+ on the left side. Radial pulses are 2+ on the right side and 2+ on the left side. Dorsalis pedis pulses are detected w/ Doppler on the right side and detected w/ Doppler on the left side. Posterior tibial pulses are 0 on the right side and detected w/ Doppler on the left side. Heart sounds: Normal heart sounds. Pulmonary: Effort: Pulmonary effort is normal. Musculoskeletal: Cervical back: Neck supple. Right lower leg: No edema. Left lower leg: No edema. Right foot: Normal range of motion. Left foot: Normal range of motion. Feet: Right foot: Skin integrity: Skin integrity normal. No ulcer, blister or skin breakdown. Left foot: Skin integrity: Skin integrity normal. No ulcer, blister or skin breakdown. Skin: General: Skin is warm and dry. Neurological: General: No focal deficit present. Mental Status: She is alert and oriented to person, place, and time. GCS: GCS eye subscore is 4. GCS verbal subscore is 5. GCS motor subscore is 6. Sensory: Sensation is intact. Motor: Motor function is intact. Comments: In wheelchair Psychiatric: Mood and Affect: Mood normal. Behavior: Behavior normal. Thought Content: Thought content normal. Judgment: Judgment normal. ASSESSMENT/PLAN: Problem List Items Addressed This Visit None Visit Diagnoses Acute deep vein thrombosis (DVT) of iliac vein of right lower extremity (HCC) - Primary PAD (peripheral artery disease) (HCC) 1. Stable follow up of lower extremity PAD -Recommend monitoring for claudication when working with PT, rest pain in feet at night, and nonhealing wounds. -If she is not having any of these lower extremity symptoms, would not recommend regular testing. 2. Stable follow up of venous thrombectomy in 2023 -Continue anticoagulation if safe -Recommend elevating legs when able -Monitor for new or worsening lower extremity edema. Follow-Up: prn . documented in this encounter [facility] 08-16-2024 Note [facility] 08-16-2024 Nurse Note Patient picked up for transfer to [facility] by stretcher. Report already called to GENET Garcia. [facility] 08-16-2024 Nurse Note Patient picked up for transfer to [facility] by stretcher. Report already called to GENET Garcia. Telephone report called to GENET Garcia at [facility]. Bedside swallow completed. Pt passed and tolerated well tolerated well. documented in this encounter [facility] 08-16-2024 Nurse Note Telephone report called to GENET Garcia at [facility]. [facility] 08-16-2024 Note Formatting of this n ote might be different from the original. [facility] at 2[facility]. Notified snf of transport time via [employer] message; reviewed time with RN, unit aide tech and TCC. Called pt's daughter to review discharge time., plan; she is agreeable. [facility] 08-16-2024 Note Formatting of this n ote might be different from the original. Arranged transport to [facility] via [facility] with pickup at 2pm. Notified snf of transport time via [employer] message; reviewed time with RN, unit aide tech and TCC. Called pt's daughter to review discharge time., plan; she is agreeable. [facility] 08-16-2024 Miscellaneous Notes Arranged transport to [facility] via [facility] with pickup at 2pm. Notified snf of transport time via [employer] message; reviewed time with RN, unit aide tech and TCC. Called pt's daughter to review discharge time., plan; she is agreeable. Patient Choice Patient Name: MEL POP Date of : 1940 All Providers Sent Referral Name: Health system Phone: [phone] Address: [address] [place] [address] Name: [facility] ([facility] Phone: [phone] Address: [address] [place] [address] Name: [facility] Phone: [phone] Address: [address] [place] [address] MAR & Discharge med list transmitted to [facility] via Careport per TCC request. Pt has auth to go to [facility]. Dttiffanie Stokes,[phone] was called, message left @DC. Care Team was messaged...place DC orders/MAR. Dar YOUNG RN complete HECTOR. LICENSED VOCATIONAL NURSE will arrange transport for this am. DIRECTOR OF WEB MARKETING tasked to sebd DC orders/MAR. Problem: Knowledge Deficit Goal: Patient/family/caregiver demonstrates understanding of disease process, treatment plan, medications, and discharge instructions Outcome: Progressing Problem: Potential for Compromised Skin Integrity Goal: Skin Integrity is Maintained or Improved Outcome: Progressing Goal: Nutritional status is improving Outcome: Progressing Problem: Urinary Incontinence Goal: Perineal skin integrity is maintained or improved Outcome: Progressing Problem: Problem Interventions Goal: Assess Nutritional Intake Outcome: Progressing Problem: Potential for Falls Goal: I will remain free of falls Outcome: Progressing Problem: Discharge Barriers Goal: My discharge needs are met Outcome: Progressing Authorization is pending with [employer]. Ref# [id number] to be DC'd to [facility]. Dtr Fidel Updated. CM to follow. Patient progressing toward all goals. Problem: Knowledge Deficit Goal: Patient/family/caregiver demonstrates understanding of disease process, treatment plan, medications, and discharge instructions Outcome: Progressing Problem: Potential for Compromised Skin Integrity Goal: Skin Integrity is Maintained or Improved Outcome: Progressing Goal: Nutritional status is improving Outcome: Progressing Problem: Urinary Incontinence Goal: Perineal skin integrity is maintained or improved Outcome: Progressing Problem: Problem Interventions Goal: Assess Nutritional Intake Outcome: Progressing Problem: Potential for Falls Goal: I will remain free of falls Outcome: Progressing Problem: Discharge Barriers Goal: My discharge needs are met Outcome: Progressing Pt has Been accepted to [facility]. Need PT/OT to see so auth to be started. Therapy to see today was sent. Called and spoke with Dtr braxton Stokes. SNF tasked w update. CM to follow. Problem: Knowledge Deficit Goal: Patient/family/caregiver demonstrates understanding of disease process, treatment plan, medications, and discharge instructions Outcome: Progressing Problem: Potential for Compromised Skin Integrity Goal: Skin Integrity is Maintained or Improved Outcome: Progressing Goal: Nutritional status is improving Outcome: Progressing Problem: Urinary Incontinence Goal: Perineal skin integrity is maintained or improved Outcome: Progressing Problem: Problem Interventions Goal: Assess Nutritional Intake Outcome: Progressing Problem: Potential for Falls Goal: I will remain free of falls Outcome: Progressing Problem: Discharge Barriers Goal: My discharge needs are met Outcome: Progressing Referral placed to SNF- [facility] via [facility] per [facility] request. Await review and response regarding ability to accept. TCC notified. Electronically signed by Christine Morataya CMA, 08-13-2024 at 3:00 PM Called dgt to talk about dc planning. Dgt continues to tour SNFs this evening, since she was sick this weekend. Provided me with two more SNF choices. [facility] Tasked DIRECTOR OF WEB MARKETING to create these referrals. CM to follow. Problem: Knowledge Deficit Goal: Patient/family/caregiver demonstrates understanding of disease process, treatment plan, medications, and discharge instructions Outcome: Progressing Problem: Potential for Compromised Skin Integrity Goal: Skin Integrity is Maintained or Improved Outcome: Progressing Goal: Nutritional status is improving Outcome: Progressing Problem: Urinary Incontinence Goal: Perineal skin integrity is maintained or improved Outcome: Progressing Problem: Problem Interventions Goal: Assess Nutritional Intake Outcome: Progressing Problem: Potential for Falls Goal: I will remain free of falls Outcome: Progressing Problem: Discharge Barriers Goal: My discharge needs are met Outcome: Progressing Problem: Knowledge Deficit Goal: Patient/family/caregiver demonstrates understanding of disease process, treatment plan, medications, and discharge instructions Outcome: Progressing Problem: Knowledge Deficit Goal: Patient/family/caregiver demonstrates understanding of disease process, treatment plan, medications, and discharge instructions Outcome: Progressing Problem: Potential for Compromised Skin Integrity Goal: Skin Integrity is Maintained or Improved Outcome: Progressing Goal: Nutritional status is improving Outcome: Progressing Problem: Urinary Incontinence Goal: Perineal skin integrity is maintained or improved Outcome: Progressing Problem: Problem Interventions Goal: Assess Nutritional Intake Outcome: Progressing Problem: Potential for Falls Goal: I will remain free of falls Outcome: Progressing Problem: Discharge Barriers Goal: My discharge needs are met Outcome: Progressing Problem: Knowledge Deficit Goal: Patient/family/caregiver demonstrates understanding of disease process, treatment plan, medications, and discharge instructions Outcome: Progressing Flowsheets (Taken 08/11/2024 1030) Patient/family/caregiver demonstrates understanding of disease process, treatment plan, medications, and discharge instructions: Complete learning assessment and assess knowledge base Problem: Potential for Compromised Skin Integrity Goal: Skin Integrity is Maintained or Improved Outcome: Progressing Goal: Nutritional status is improving Outcome: Progressing Problem: Urinary Incontinence Goal: Perineal skin integrity is maintained or improved Outcome: Progressing Problem: Problem Interventions Goal: Assess Nutritional Intake Outcome: Progressing Problem: Potential for Falls Goal: I will remain free of falls Outcome: Progressing Note: safety Problem: Discharge Barriers Goal: My discharge needs are met Outcome: Progressing CM noted DC orders in place, Dgt touring facilities over the weekend. [facility] pending acceptance, [facility] Problem: Knowledge Deficit Goal: Patient/family/caregiver demonstrates understanding of disease process, treatment plan, medications, and discharge instructions Outcome: Progressing Problem: Potential for Compromised Skin Integrity Goal: Skin Integrity is Maintained or Improved Outcome: Progressing Goal: Nutritional status is improving Outcome: Progressing Problem: Urinary Incontinence Goal: Perineal skin integrity is maintained or improved Outcome: Progressing Problem: Problem Interventions Goal: Assess Nutritional Intake Outcome: Progressing Referral placed to [facility] via [facility] per [facility] request. Await review and response regarding ability to accept. [facility] notified. Electronically signed by Christine Morataya [facility], 08-10-2024 at 9:23AM Pt was to be DC to [facility]. Found out pt and dtr didn't want to return to [facility]. SNF was made aware. On adm spoke with Dtr Fidel, ok to return. Called Dtr this am, after speaking with pt and things that happened and didn't happen. Fidel requesting a referral to be made to [facility]. [facility] tasked to send. A SNF list was emailed to Fidel. [email or web address]. She will tour facilities over weekend. CM to follow. Problem: Knowledge Deficit Goal: Patient/family/caregiver demonstrates understanding of disease process, treatment plan, medications, and discharge instructions Outcome: Progressing Problem: Potential for Compromised Skin Integrity Goal: Skin Integrity is Maintained or Improved Outcome: Progressing Goal: Nutritional status is improving Outcome: Progressing Problem: Urinary Incontinence Goal: Perineal skin integrity is maintained or improved Outcome: Progressing Problem: Problem Interventions Goal: Assess Nutritional Intake Outcome: Progressing Discharge summary and med list sent via Careport to [facility] per TCC request. Auth received. Patient with active dc orders. [facility] with estimated leaf size picker time of 1929. VM left with daughter Fidel along with 3N phone number to call with questions. Bedside RN aware. Facility updated. [facility] supervisor sewing room sent orders to [facility]. biofuels technology manager was asked to assist with setting up transport back to [facility] this evening. pocketed spring assembler had already done so, but this clinique counter manager called daughter to inform her of discharge and transport set up. Daughter did not wish patient to return to the SNF. Air Shovel Operator told her that patient is medically stable for dc and that she should continue the discussion with the social security benefits interviewer and research administrator at The snf, and also get options from [employer]. Coordinator was to message the snf about return this evening via CarePort. Updated PT/OT notes placed to SNF [facility] via Careport per TCC request. Await review and response regarding ability to accept. TCC notified. Patient is medically ready for dc. PT/OT both continuing to recommend SNF. [facility] clinique counter manager asked to start auth. Plan to dc back to [facility] pending auth I was off Yesterday, PT note was in from Tuesday. Therapy to see today was sent out to OT Tuesday to see yesterday. Pt was not seen. I did sent a therapy to see today to PT/OT so an auth can be started. Pt will Be Dc'd to [facility]. CM to follow. Problem: Knowledge Deficit Goal: Patient/family/caregiver demonstrates understanding of disease process, treatment plan, medications, and discharge instructions Outcome: Progressing Problem: Potential for Compromised Skin Integrity Goal: Skin Integrity is Maintained or Improved Outcome: Progressing Goal: Nutritional status is improving Outcome: Progressing Problem: Knowledge Deficit Goal: Patient/family/caregiver demonstrates understanding of disease process, treatment plan, medications, and discharge instructions Outcome: Progressing Problem: Potential for Compromised Skin Integrity Goal: Skin Integrity is Maintained or Improved Outcome: Progressing Goal: Nutritional status is improving Outcome: Progressing Problem: Urinary Incontinence Goal: Perineal skin integrity is maintained or improved Outcome: Progressing Problem: Problem Interventions Goal: Assess Nutritional Intake Outcome: Progressing Case Management Progress Note: Patient remains on 5N for concern with aspiration 2/2 vomiting. Discharge Plan: Return to [facility]. Therapy eval needed for precert. TCC to assist and follow as needed. Problem: Knowledge Deficit Goal: Patient/family/caregiver demonstrates understanding of disease process, treatment plan, medications, and discharge instructions Outcome: Progressing Problem: Potential for Compromised Skin Integrity Goal: Skin Integrity is Maintained or Improved Outcome: Progressing Goal: Nutritional status is improving Outcome: Progressing Problem: Urinary Incontinence Goal: Perineal skin integrity is maintained or improved Outcome: Progressing Problem: Problem Interventions Goal: Assess Nutritional Intake Outcome: Progressing Problem: Knowledge Deficit Goal: Patient/family/caregiver demonstrates understanding of disease process, treatment plan, medications, and discharge instructions Outcome: Progressing Problem: Potential for Compromised Skin Integrity Goal: Skin Integrity is Maintained or Improved Outcome: Progressing Goal: Nutritional status is improving Outcome: Progressing Problem: Urinary Incontinence Goal: Perineal skin integrity is maintained or improved Outcome: Progressing Problem: Problem Interventions Goal: Assess Nutritional Intake Outcome: Progressing Pt cont's on IV AtBs'. Plan is for pt to return to [facility]. Auth and HECTOR needed prior to DC. CM to follow. Per attending pt ready for DC. Pt will return to [facility]. Pt needs PT/OT to start auth Therapy to see put in for alistair so auth can be started. HECTOR will need completed. CM to follow. Problem: Knowledge Deficit Goal: Patient/family/caregiver demonstrates understanding of disease process, treatment plan, medications, and discharge instructions Outcome: Progressing Problem: Potential for Compromised Skin Integrity Goal: Skin Integrity is Maintained or Improved Outcome: Progressing Goal: Nutritional status is improving Outcome: Progressing Problem: Urinary Incontinence Goal: Perineal skin integrity is maintained or improved Outcome: Progressing Problem: Knowledge Deficit Goal: Patient/family/caregiver demonstrates understanding of disease process, treatment plan, medications, and discharge instructions Outcome: Progressing Problem: Potential for Compromised Skin Integrity Goal: Skin Integrity is Maintained or Improved Outcome: Progressing Goal: Nutritional status is improving Outcome: Progressing Problem: Urinary Incontinence Goal: Perineal skin integrity is maintained or improved Outcome: Progressing Problem: Knowledge Deficit Goal: Patient/family/caregiver demonstrates understanding of disease process, treatment plan, medications, and discharge instructions Outcome: Progressing Problem: Potential for Compromised Skin Integrity Goal: Skin Integrity is Maintained or Improved Outcome: Progressing Goal: Nutritional status is improving Outcome: Progressing Problem: Urinary Incontinence Goal: Perineal skin integrity is maintained or improved Outcome: Progressing Problem: Knowledge Deficit Goal: Patient/family/caregiver demonstrates understanding of disease process, treatment plan, medications, and discharge instructions Outcome: Progressing Problem: Potential for Compromised Skin Integrity Goal: Skin Integrity is Maintained or Improved Outcome: Progressing Goal: Nutritional status is improving Outcome: Progressing Problem: Urinary Incontinence Goal: Perineal skin integrity is maintained or improved Outcome: Progressing Problem: Knowledge Deficit Goal: Patient/family/caregiver demonstrates understanding of disease process, treatment plan, medications, and discharge instructions 08/03/2024 1457 by Lima Saenz RN Outcome: Progressing 08/03/2024 0842 by Lima Saenz RN Outcome: Progressing 08/03/2024 0842 by Lima Saenz RN Outcome: Progressing Problem: Potential for Compromised Skin Integrity Goal: Skin Integrity is Maintained or Improved 08/03/2024 1457 by Lima Saenz RN Outcome: Progressing 08/03/2024 0842 by Lima Saenz RN Outcome: Progressing 08/03/2024 0842 by Lima Saenz RN Outcome: Progressing Return [facility] per [facility] request. Await review and response regarding ability to accept. TCC notified. Pt to ED w N/V/Diarrhea, was Dx w Aspiration pneumonitis. Started on IV ATB's. Called pt's Dtr, Fidel, . Pt is from [facility]. Plan on returning. [facility] tasked to send a return referral. Problem: Potential for Compromised Skin Integrity Goal: Skin Integrity is Maintained or Improved 08/03/2024 0842 by Lima Saenz RN Outcome: Progressing 08/03/2024 0842 by Lima Saenz RN Outcome: Progressing Problem: Potential for Compromised Skin Integrity Goal: Nutritional status is improving 08/03/2024 0842 by Lima Saenz RN Outcome: Progressing 08/03/2024 0842 by Lima Saenz RN Outcome: Progressing Problem: Knowledge Deficit Goal: Patient/family/caregiver demonstrates understanding of disease process, treatment plan, medications, and discharge instructions Outcome: Progressing Problem: Potential for Compromised Skin Integrity Goal: Skin Integrity is Maintained or Improved Outcome: Progressing documented in this encounter [facility] 08-16-2024 Note Formatting of this n ote might be different from the original. Patient Choice Patient Name: MEL POP Date of : 1940 All Providers Sent [facility] Phone: [phone] Address: [address] [place], [place] [address] Name: [facility] Phone: [phone] Address: [address] [place] [address] Name: [facility] Phone: [phone] Address: [address] [place] [address] [facility] 08-16-2024 Note Formatting of this n ote might be different from the original. Patient Choice Patient Name: MEL POP Date of : 1940 All Providers Sent Referral Name: Health system Phone: [phone] Address: [address] [place] [address] Name: [facility] Phone: [phone] Address: [address] [place] [address] Name: [facility] Phone: [phone] Address: [address] [place] [address] [facility] 08-16-2024 Note Formatting of this n ote might be different from the original. MAR & Discharge med list transmitted to [facility] via Careport per TCC request. [facility] 08-16-2024 Note Formatting of this n ote might be different from the original. MAR & Discharge med list transmitted to [facility] via Careport per TCC request. [facility] 08-16-2024 Note Formatting of this n ote might be different from the original. Pt has auth to go to [facility]. Dtr Fidel,[phone] was called, message left @DC. Care Team was messaged...place DC orders/MAR. Dar YOUNG RN complete HECTOR. LICENSED VOCATIONAL NURSE will arrange transport for this am. [facility] tasked to sebd DC orders/MAR. [facility] 08-16-2024 Note Formatting of this n ote might be different from the original. Pt has auth to go to [facility]. Dtr Fidel,[phone] was called, message left @DC. Care Team was messaged...place DC orders/MAR. Dar YOUNG RN complete HECTOR. LICENSED VOCATIONAL NURSE will arrange transport for this am. DIRECTOR OF WEB MARKETING tasked to sebd DC orders/MAR. [facility] [employer] 08-16-2024 History of Present illness Narrative Hospitalist Progress Note 08/16/2024 Subjective: Admit Date: 08/03/2024 PCP: Jared Evans MD Room#: N5-818/[id number] A BRIEF HOSPITAL COURSE: Mel is a 83 y.o. female with past medical history below who presents with chief complaint listed above.Patient is an 83 y/o female who presented to [place] [facility] early this AM from local [place] for vomiting and diarrhea. Patient reported she vomited a "large amount" early this AM. She didn't realized she had a BM until the nurses checked on her and she was incontinent of stool. Patient with recent hospitalization for acute angle closure glaucoma. Had surgery on the eye 1 week ago. Spoke with the daughter and she is to provide correct list of eye drops for the patient. Patient states she now feels fine. She denies abdominal pain or nausea. No SOB or CP, she has minimal cough. She was started on ABX for concern of aspiration and completed 5 day course of Unasyn on 08/07. GI panel positive for norovirus. Treated symptomatically. Pt discharged delayed awaiting auth to return to SNF. auth obtained to SNF 08/09. Discharge placed and transportation set, but daughter changed her mind and wanted a different facility so DC cancelled and now awaiting new facility and auth Interval History: 08/14- patient feels well, frustrated she is still in hospital. 08/15-patient continues to express frustration with not being discharged to rehab yet. She has no symptomatic complaints. 08/16 - Pending auth- DC orders complete over past 2 days. No complaints Adult diet Regular 24HR INTAKE/OUTPUT: Intake/Output Summary (Last 24 hours) at 08/16/2024 0911 Last data filed at 08/15/2024 1451 Gross per 24 hour Intake 240 ml Output -- Net 240 ml Past Medical History: Past Medical History: Diagnosis Date Arrhythmia PAF Asthma Chronic kidney disease COPD (chronic obstructive pulmonary disease) ([facility]) DVT (deep venous thrombosis) ([facility]) Essential hypertension 03/07/2020 GERD (gastroesophageal reflux disease) Hiatal hernia IBS (irritable bowel syndrome) Pure hypercholesterolemia 03/07/2020 PVD (peripheral vascular disease) ([facility]) Stroke ([facility]) LABS: CBC: No results for input(s): "WBC", "RBC", "HGB", "HCT", "MCV", "RDW", "PLT" in the last 72 hours. BMP: No results for input(s): "NA", "K", "CL", "CO2", "BUN", "CREATININE", "GLUCOSE", "CALCIUM", "ANIONGAP" in the last 72 hours. LIVER PROFILE: No results for input(s): "AST", "ALT", "BILITOT", "ALKPHOS", "PROT" in the last 72 hours. No lab exists for component: LABALBU PT/INR: No results for input(s): "PROTIME", "INR" in the last 72 hours. CARDIAC ENZYMES: No results for input(s): "TROPONINI" in the last 72 hours. Procalcitonin: No results found for: "PROCAL" COVID-19 PCR: No results for input(s): "COVID19" in the last 72 hours. Objective: Vitals: BP 135/66 (BP Location: Left arm, Patient Position: Sitting) Pulse 85 Temp 36.4 C (97.6 F) (Temporal) Resp 18 Ht 5' 3.78" (1.62 m) Wt 165 lb 5.5 oz (75 kg) LMP (LMP Unknown) SpO2 94% BMI 28.58 kg/m Pulse Ox: SpO2 Av % Min: 94 % Max: 96 % Supplemental O2: GENERAL: sitting in chair comfortably, awake and alert HEENT: normocephalic, non-traumatic, MMM NECK: supple, trachea midline HEART: RRR, normal S1 and S2 LUNGS: non labored, no wheeze ABD: soft, non-distended MSK: LE edema noted SKIN: warm, dry Medications: Scheduled PRN amLODIPine, 5 mg, Oral, Daily apixaban, 5 mg, Oral, BID atorvastatin, 80 mg, Oral, Nightly atropine, 1 drop, Right Eye, Daily lisinopril, 40 mg, Oral, Daily metoprolol tartrate, 25 mg, Oral, BID WC mometasone-formoterol, 2 puff, Inhalation, BID prednisoLONE acetate, 1 drop, Right Eye, 4x daily timolol, 1 drop, Right Eye, BID tiotropium, 2 puff, Inhalation, Daily PRN medications: acetaminophen OR acetaminophen, erythromycin, ipratropium-albuterol, ondansetron ODT OR ondansetron Continuous Assessment Data: Acute, acute on chronic, unstable/uncontrolled chronic problems/diagnoses: Aspiration pneumonitis Vomiting and diarrhea 2/2 norovirus LORENZA on CKD 3 Dependent LE edema - elevate legs Stable chronic problems affecting care, new non-acute diagnoses: Glaucoma and detached retina Afib COPD PAD HTN- added amlodipine due to persistent htn DVT 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 - medically stable to DC - nausea resolved - am labs, replace lytes prn - PT/OT/CM/SW- was set up for SNF prior to daughter changing her mind on facility, delay in deciding what facility is acceptable. Now 2 choices have been submitted- await acceptance and auth. *no changes to medical regimen today. While we continue to await authorization for SNF. - delirium precautions: increase activity - DVT prophylaxis: enoxaparin and encourage ambulation Advance Directive: DNR-CCA Anticipated Discharge - Date -0-1 day - Location - Skilled Facility - Pending the following - authorization Extended Emergency Contact Information Primary Emergency Contact: José Miguel Castillo/ Fidel Mobile Relation: Mother Secondary Emergency Contact: BroderickDamaris DO NOT CALL-TERMINALLY ILL Mobile Relation: Friend Devika Escobar MD Division of Hospitalist Medicine [facility] Hospitalist Progress Note 08/15/2024 Subjective: Admit Date: 08/03/2024 PCP: Jared Evans MD Room#: [id number] A BRIEF HOSPITAL COURSE: Mel is a 83 y.o. female with past medical history below who presents with chief complaint listed above.Patient is an 83 y/o female who presented to [place] ER early this AM from local [place]. Patient reported she vomited a "large amount" early this AM. She didn't realized she had a BM until the nurses checked on her and she was incontinent of stool. Patient with recent hospitalization for acute angle closure glaucoma. Had surgery on the eye 1 week ago. Spoke with the daughter and she is to provide correct list of eye drops for the patient. Patient states she now feels fine. She denies abdominal pain or nausea. No SOB or CP, she has minimal cough. She was started on ABX for concern of aspiration and completed 5 day course of Unasyn on 08/07. GI panel positive for norovirus. Treated symptomatically. Pt discharged delayed awaiting auth to return to SNF. auth obtained to SNF 08/09. Discharge placed and transportation set, but daughter changed her mind and wanted a different facility so DC cancelled and now awaiting new facility and auth Interval History: 08/14- patient feels well, frustrated she is still in hospital. 08/15-patient continues to express frustration with not being discharged to rehab yet. She has no symptomatic complaints. Adult diet Regular 24HR INTAKE/OUTPUT: No intake or output data in the 24 hours ending 08/15/24 0906 Past Medical History: Past Medical History: Diagnosis Date Arrhythmia PAF Asthma Chronic kidney disease COPD (chronic obstructive pulmonary disease) (HCC) DVT (deep venous thrombosis) ([facility]) Essential hypertension 03/07/2020 GERD (gastroesophageal reflux disease) Hiatal hernia IBS (irritable bowel syndrome) Pure hypercholesterolemia 03/07/2020 PVD (peripheral vascular disease) ([facility]) Stroke ([facility]) LABS: CBC: No results for input(s): "WBC", "RBC", "HGB", "HCT", "MCV", "RDW", "PLT" in the last 72 hours. BMP: No results for input(s): "NA", "K", "CL", "CO2", "BUN", "CREATININE", "GLUCOSE", "CALCIUM", "ANIONGAP" in the last 72 hours. LIVER PROFILE: No results for input(s): "AST", "ALT", "BILITOT", "ALKPHOS", "PROT" in the last 72 hours. No lab exists for component: LABALBU PT/INR: No results for input(s): "PROTIME", "INR" in the last 72 hours. CARDIAC ENZYMES: No results for input(s): "TROPONINI" in the last 72 hours. Procalcitonin: No results found for: "PROCAL" COVID-19 PCR: No results for input(s): "COVID19" in the last 72 hours. Objective: Vitals: BP 152/94 (BP Location: Left arm, Patient Position: Sitting) Pulse 87 Temp 36.5 C (97.7 F) (Temporal) Resp 16 Ht 5' 3.78" (1.62 m) Wt 165 lb 5.5 oz (75 kg) LMP (LMP Unknown) SpO2 97% BMI 28.58 kg/m Pulse Ox: SpO2 Av % Min: 96 % Max: 98 % Supplemental O2: GENERAL: sitting in chair comfortably, awake and alert HEENT: normocephalic, non-traumatic, MMM NECK: supple, trachea midline HEART: RRR, normal S1 and S2 LUNGS: non labored, no wheeze ABD: soft, non-distended MSK: LE edema noted SKIN: warm, dry Medications: Scheduled PRN amLODIPine, 5 mg, Oral, Daily apixaban, 5 mg, Oral, BID atorvastatin, 80 mg, Oral, Nightly atropine, 1 drop, Right Eye, Daily lisinopril, 40 mg, Oral, Daily metoprolol tartrate, 25 mg, Oral, BID WC mometasone-formoterol, 2 puff, Inhalation, BID prednisoLONE acetate, 1 drop, Right Eye, 4x daily timolol, 1 drop, Right Eye, BID tiotropium, 2 puff, Inhalation, Daily PRN medications: acetaminophen OR acetaminophen, erythromycin, ipratropium-albuterol, ondansetron ODT OR ondansetron Continuous Assessment Data: Acute, acute on chronic, unstable/uncontrolled chronic problems/diagnoses: Aspiration pneumonitis Vomiting and diarrhea 2/2 norovirus LORENZA on CKD 3 Dependent LE edema - elevate legs Stable chronic problems affecting care, new non-acute diagnoses: Glaucoma and detached retina Afib COPD PAD HTN- added amlodipine due to persistent htn DVT 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 - medically stable to DC - nausea resolved - am labs, replace lytes prn - PT/OT/CM/SW- was set up for SNF prior to daughter changing her mind on facility, delay in deciding what facility is acceptable. Now 2 choices have been submitted- await acceptance and auth. - delirium precautions: increase activity - DVT prophylaxis: enoxaparin and encourage ambulation Advance Directive: DNR-CCA Anticipated Discharge - Date - no medical barrier to discharge - Location - Skilled Facility - Pending the following - authorization and bed availability Extended Emergency Contact Information Primary Emergency Contact: José Miguel Castillo/ Fidel Mobile Relation: Mother Secondary Emergency Contact: Damaris Villafana DO NOT CALL-TERMINALLY ILL Mobile Relation: Friend Devika Escobar MD Division of Hospitalist Medicine [facility] Images from the original note were not included. PHYSICAL THERAPY [facility] Note Name/MRN: Mel Pop ([id number]) Date of : 1940 Age: 83 y.o. Room/Bed: N5628/N5[facility]3 A Discharge Recommendation: 24 hour supervision or assist, Intermediate Facility Equipment Needed: (pt uses FWW MANAGER DIGITAL AD OPERATIONS) Prior Level of Function Prior Level of ADL Function: Required Assist Prior Level of Mobility: Required Assist; Device: Front wheeled walker Prior Level of Transfers: Required Assist Assessment Progress made towards goals this session. Patient was able to ambulate increased distance with FWW and min assist, cues and assistance for device management due to blindness. Performs transfers with SBA, overall good safety awareness demonstrated. Good effort with all activities. Patient will require 24 hour assist, home health PT, and in home tutor if discharging home due to complete blindness. If 24 hour assist is not available, then recommend SNF at discharge. Subjective Seated in recliner upon arrival, agreeable to PT. Pain: Pt denies any current pain. Medical Precautions: Enhanced Contact Proper PPE donned/doffed in accordance with facility standards. Fall Risk: Nugent Fall Risk Score: 45 (Medium Risk) Nugent Fall Risk Score: 45 (High Risk) Precautions/Restrictions: (+)Norovirus Overall Cognitive Status: WNL Overall Orientation Status: Oriented x4 Family/Caregiver Present: none Objective Transfers/Mobility Sit to stand: SBA Stand to sit: SBA Good technique, no LOB or instability Device(s) used: Front wheeled walker Ambulation Ambulation 1 Assistive device(s) used: Front wheeled walker Assist level: min assist Distance (ft): 45ft x 2 Quality of gait: slow jenni, requires assistance for steering device around turns and to avoid hitting objects due to total blindness. Min cues for proximity to device. Balance During Session: Posture: fair Sitting - Static: Supervision Sitting - Dynamic: Supervision Standing - Static: Contact Guard Standing - Dynamic: Contact Guard Plan Continue acute PT per plan of care. Safety/Education Safety Safety Devices in place: All fall risk precautions in place, call light within reach, left in chair, and gait belt Restraints: No Education Transfers, gait, balance Outcome Measures AM-PAC AM-PAC Inpatient Mobility Raw Score (No Stairs) : 19 JH-HLM -HLM Score: Walked 25 ft or more (i.e. walked outside of room) Goals Patient Stated Goal: keep getting up, get back to [place]. Encounter Problems Encounter Problems (Active) Balance Patient will maintain static standing balance for 3 minutes with supervision in order to demonstrate decreased risk of falling. (Progressing) Start: 08/06/24 Expected End: 08/20/24 Mobility Patient will ambulate 75 feet with min assist and device in order to improve safety and independence with mobility. (Progressing) Start: 08/06/24 Expected End: 08/20/24 Will need assist due to vision Transfers Patient will perform bed mobility with supervision in order to improve independence and prepare for out of bed mobility. (Not Addressed) Start: 08/06/24 Expected End: 08/20/24 Patient will complete sit to stand transfer with supervision to device in order to improve safety and prepare for out of bed mobility. (Adequate for Discharge) Start: 08/06/24 Expected End: 08/20/24 Therapy Time Individual Co-treatment Time In 1351 Time Out 1410 Minutes 19 Timed Code Treatment Minutes: 19 Minutes (Gait) Oanh Grimes PTA Cosigned by Samantha Lora, PT at 08/14/2024 3:14 PM EST Images from the original note were not included. OCCUPATIONAL THERAPY [facility] Note Name/MRN: Mel Pop ([id number]) Date of : 1940 Age: 83 y.o. Room/Bed: [facility] A Discharge Recommendation: Intermediate Facility Prior Level of Function Prior Level of ADL Function: Required Assist Prior Level of Mobility: Required Assist; Device: Front wheeled walker Prior Level of Transfers: Required Assist Assessment Sit<->stand, and transfers CGA- min assist with max verbal cues due to pt. being blind. Static standing SBA for 4-5 min's using FWW. Pt's lunched arrived. OT open pt's container and verbally explained what she got and when it was located on her tray table using the clock method. With OTR co-signer approval, OT recommend home with 24/7 assist, home health OT and in home tutor. Pt. ( Who is totally BLIND), Would due better receiving therapy in her home due to familiar environment. If she can not get 24/7 assist at home then OT recommend SNF at nd. Subjective Pt. Remains in her recliner eating lunch. Pain: Pt denies any current pain. Medical Precautions: Enhanced Contact Proper PPE donned/doffed in accordance with facility standards. Fall Risk: Nguent Fall Risk Score: 45 (Medium Risk) Nugent Fall Risk Score: 45 (High Risk) Precautions/Restrictions: (+)Norovirus Family/Caregiver Present: none Objective ADLs Feeding: Supervision Set up and used the clock method to locate food items on food try. Transfers/Mobility Sit to stand: Min Assist Stand to sit: CGA Stand step: Min Assist Bedside commode: Min Assist Standing balance: SBA for static standing Pt. Stood with FWW 4-5 min's with SBA Device(s) used: Front wheeled walker Plan Continue acute OT per plan of care. Safety/Education Safety Safety Devices in place: All fall risk precautions in place, call light within reach, left in chair, gait belt, nurse notified, and no alarms engaged upon entry Restraints: No Education Education Given To: patient Education Provided: OT Role, Plan of Care, ADL Adaptive Strategies, Transfer Training, and Orientation Education Method: Verbal and Demonstration Barriers to Learning: Vision Education Outcome: Verbalized Understanding, Demonstrated Understanding, and Continued Education Needed AM-PAC AM-PAC Inpatient Daily Activity Raw Score: 18 ADL Inpatient CMS G-Code Modifier: CK Goals Patient Stated Goal: To get stronger. Encounter Problems Encounter Problems (Active) Dressings Lower Extremities LE dressing with supervision. (Not Addressed) Start: 08/08/24 Expected End: 09/05/24 Transfers Toilet transfer with supervision. (Progressing) Start: 08/08/24 Expected End: 09/05/24 Encounter Problems (Resolved) Balance Static standing balance x 2 mins with supervision. (Goal Met) Start: 08/08/24 Expected End: 09/05/24 Resolved: 08/14/24 Therapy Time Individual Co-treatment Time In 1141 Time Out 1201 Minutes 20 Timed Code Treatment Minutes: 20 Minutes (ther act-1) FERDINAND Castellanos Cosigned by NELLY Blackwell at 08/14/2024 2:25 PM EST Hospitalist Progress Note 08/14/2024 Subjective: Admit Date: 08/03/2024 PCP: Jared Evans MD Room#: [id number] A BRIEF HOSPITAL COURSE: Mel is a 83 y.o. female with past medical history below who presents with chief complaint listed above.Patient is an 83 y/o female who presented to [place] ER early this AM from [place]. Patient reported she vomited a "large amount" early this AM. She didn't realized she had a BM until the nurses checked on her and she was incontinent of stool. Patient with recent hospitalization for acute angle closure glaucoma. Had surgery on the eye 1 week ago. Spoke with the daughter and she is to provide correct list of eye drops for the patient. Patient states she now feels fine. She denies abdominal pain or nausea. No SOB or CP, she has minimal cough. She was started on ABX for concern of aspiration and completed 5 day course of Unasyn on 08/07. GI panel positive for norovirus. Treated symptomatically. Pt discharged delayed awaiting auth to return to SNF. auth obtained to SNF 08/09. Discharge placed and transportation set, but daughter changed her mind and wanted a different facility so DC cancelled and now awaiting new facility and auth Interval History: 08/14- patient feels well, frustrated she is still in hospital, Adult diet Regular 24HR INTAKE/OUTPUT: No intake or output data in the 24 hours ending 08/14/24 0957 Past Medical History: Past Medical History: Diagnosis Date Arrhythmia PAF Asthma Chronic kidney disease COPD (chronic obstructive pulmonary disease) (HCC) DVT (deep venous thrombosis) (HCC) Essential hypertension 03/07/2020 GERD (gastroesophageal reflux disease) Hiatal hernia IBS (irritable bowel syndrome) Pure hypercholesterolemia 03/07/2020 PVD (peripheral vascular disease) (HCC) Stroke (HCC) LABS: CBC: No results for input(s): "WBC", "RBC", "HGB", "HCT", "MCV", "RDW", "PLT" in the last 72 hours. BMP: No results for input(s): "NA", "K", "CL", "CO2", "BUN", "CREATININE", "GLUCOSE", "CALCIUM", "ANIONGAP" in the last 72 hours. LIVER PROFILE: No results for input(s): "AST", "ALT", "BILITOT", "ALKPHOS", "PROT" in the last 72 hours. No lab exists for component: LABALBU PT/INR: No results for input(s): "PROTIME", "INR" in the last 72 hours. CARDIAC ENZYMES: No results for input(s): "TROPONINI" in the last 72 hours. Procalcitonin: No results found for: "PROCAL" COVID-19 PCR: No results for input(s): "COVID19" in the last 72 hours. Objective: Vitals: BP 137/72 (BP Location: Left arm, Patient Position: Lying) Pulse 74 Temp 36.6 C (97.9 F) (Temporal) Resp 16 Ht 5' 3.78" (1.62 m) Wt 165 lb 5.5 oz (75 kg) LMP (LMP Unknown) SpO2 93% BMI 28.58 kg/m Pulse Ox: SpO2 Av % Min: 93 % Max: 93 % Supplemental O2: GENERAL: sitting in chair comfortably, awake and alert HEENT: normocephalic, non-traumatic, MMM NECK: supple, trachea midline HEART: RRR, normal S1 and S2 LUNGS: non labored, no wheeze ABD: soft, non-distended MSK: LE edema noted SKIN: warm, dry Medications: Scheduled PRN amLODIPine, 5 mg, Oral, Daily apixaban, 5 mg, Oral, BID atorvastatin, 80 mg, Oral, Nightly atropine, 1 drop, Right Eye, Daily lisinopril, 40 mg, Oral, Daily metoprolol tartrate, 25 mg, Oral, BID WC mometasone-formoterol, 2 puff, Inhalation, BID prednisoLONE acetate, 1 drop, Right Eye, 4x daily timolol, 1 drop, Right Eye, BID tiotropium, 2 puff, Inhalation, Daily PRN medications: acetaminophen OR acetaminophen, erythromycin, ipratropium-albuterol, ondansetron ODT OR ondansetron Continuous [Held by provider] sodium chloride, 100 mL/hr, Last Rate: Stopped (08/10/242057) Assessment Data: Acute, acute on chronic, unstable/uncontrolled chronic problems/diagnoses: Aspiration pneumonitis Vomiting and diarrhea 2/2 norovirus LORENZA on CKD 3 Dependent LE edema - elevate legs Stable chronic problems affecting care, new non-acute diagnoses: Glaucoma and detached retina Afib COPD PAD HTN- added amlodipine due to persistent htn DVT 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 - medically stable to DC - nausea resolved - am labs, replace lytes prn - PT/OT/CM/SW- was set up for SNF prior to daughter changing her mind on facility, delay in deciding what facility is acceptable. Now 2 choices have been submitted- await acceptance and auth. - delirium precautions: increase activity - DVT prophylaxis: enoxaparin and encourage ambulation Advance Directive: DNR-CCA Anticipated Discharge - Date - no medical barrier to discharge - Location - Skilled Facility - Pending the following - authorization and bed availability Total time spent (which include face to face and non face to face encounters) : 32 minutes Extended Emergency Contact Information Primary Emergency Contact: SanchezJosé Miguel/ Fidel Mobile Relation: Mother Secondary Emergency Contact: Damaris Villafana DO NOT CALL-TERMINALLY ILL Mobile Relation: Friend Devika Escobar MD Division of Hospitalist Medicine [facility] Hospitalist Progress Note 08/13/2024 Subjective: Admit Date: 08/03/2024 PCP: Jared Evans MD Room#: [id number] A BRIEF HOSPITAL COURSE: Mel is a 83 y.o. female with past medical history below who presents with chief complaint listed above.Patient is an 83 y/o female who presented to [place] ER early this AM from [place]. Patient reported she vomited a "large amount" early this AM. She didn't realized she had a BM until the nurses checked on her and she was incontinent of stool. Patient with recent hospitalization for acute angle closure glaucoma. Had surgery on the eye 1 week ago. Spoke with the daughter and she is to provide correct list of eye drops for the patient. Patient states she now feels fine. She denies abdominal pain or nausea. No SOB or CP, she has minimal cough. She was started on ABX for concern of aspiration and completed 5 day course of Unasyn on 08/07. GI panel positive for norovirus. Treated symptomatically. Pt discharged delayed awaiting auth to return to SNF. auth obtained to SNF 08/09. Discharge placed and transportation set, but daughter changed her mind and wanted a different facility so DC cancelled and now awaiting new facility and auth Interval History: 08/13: Pt seen and examined. BP better controlled. Some dependent edema - pt encourage to elevate legs as she sits in the chair most of the day Adult diet Regular 24HR INTAKE/OUTPUT: No intake or output data in the 24 hours ending 08/13/24 1308 Past Medical History: Past Medical History: Diagnosis Date Arrhythmia PAF Asthma Chronic kidney disease COPD (chronic obstructive pulmonary disease) (HCC) DVT (deep venous thrombosis) ([facility]) Essential hypertension 03/07/2020 GERD (gastroesophageal reflux disease) Hiatal hernia IBS (irritable bowel syndrome) Pure hypercholesterolemia 03/07/2020 PVD (peripheral vascular disease) ([facility]) Stroke ([facility]) LABS: CBC: No results for input(s): "WBC", "RBC", "HGB", "HCT", "MCV", "RDW", "PLT" in the last 72 hours. BMP: No results for input(s): "NA", "K", "CL", "CO2", "BUN", "CREATININE", "GLUCOSE", "CALCIUM", "ANIONGAP" in the last 72 hours. LIVER PROFILE: No results for input(s): "AST", "ALT", "BILITOT", "ALKPHOS", "PROT" in the last 72 hours. No lab exists for component: LABALBU PT/INR: No results for input(s): "PROTIME", "INR" in the last 72 hours. CARDIAC ENZYMES: No results for input(s): "TROPONINI" in the last 72 hours. Procalcitonin: No results found for: "PROCAL" COVID-19 PCR: No results for input(s): "COVID19" in the last 72 hours. Objective: Vitals: BP 153/86 (BP Location: Left arm, Patient Position: Lying) Pulse 95 Temp 36.4 C (97.5 F) (Temporal) Resp 16 Ht 5' 3.78" (1.62 m) Wt 165 lb 5.5 oz (75 kg) LMP (LMP Unknown) SpO2 93% BMI 28.58 kg/m Pulse Ox: SpO2 Av.5 % Min: 93 % Max: 94 % Supplemental O2: GENERAL: sitting in chair comfortably, awake and alert HEENT: normocephalic, non-traumatic, MMM NECK: supple, trachea midline HEART: RRR, normal S1 and S2 LUNGS: non labored, no wheeze ABD: soft, non-distended MSK: LE edema noted SKIN: warm, dry Medications: Scheduled PRN amLODIPine, 5 mg, Oral, Daily apixaban, 5 mg, Oral, BID atorvastatin, 80 mg, Oral, Nightly atropine, 1 drop, Right Eye, Daily lisinopril, 40 mg, Oral, Daily metoprolol tartrate, 25 mg, Oral, BID WC mometasone-formoterol, 2 puff, Inhalation, BID prednisoLONE acetate, 1 drop, Right Eye, 4x daily timolol, 1 drop, Right Eye, BID tiotropium, 2 puff, Inhalation, Daily PRN medications: acetaminophen OR acetaminophen, erythromycin, ipratropium-albuterol, ondansetron ODT OR ondansetron Continuous [Held by provider] sodium chloride, 100 mL/hr, Last Rate: Stopped (08/10/242057) Assessment Data: Acute, acute on chronic, unstable/uncontrolled chronic problems/diagnoses: Aspiration pneumonitis Vomiting and diarrhea 2/2 norovirus LORENZA on CKD 3 Dependent LE edema - elevate legs Stable chronic problems affecting care, new non-acute diagnoses: Glaucoma and detached retina Afib COPD PAD HTN- added amlodipine due to persistent htn DVT 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 HLD Blindness Plan As a result of the above findings & factors, the following mgmt was pursued: - completed ABX 08/07 (total 5 days per abx stewardship) - IVF - LORENZA resolved - passed bedside swallow - advance diet as tolerated - medically stable to DC - nausea resolved - am labs, replace lytes prn - PT/OT/CM/SW - delirium precautions: increase activity - DVT prophylaxis: enoxaparin and encourage ambulation Advance Directive: DNR-CCA Anticipated Discharge - Date - no medical barrier to discharge - Location - Skilled Facility - Pending the following - authorization and bed availability Pt had auth to SNF, but daughter wanted different facility so new facility chosen and now awaiting new auth Total time spent (which include face to face and non face to face encounters) : 25 minutes Extended Emergency Contact Information Primary Emergency Contact: José Mgiuel Castillo/ Fidel Mobile Relation: Mother Secondary Emergency Contact: BroderickDamaris DO NOT CALL-TERMINALLY ILL Mobile Relation: Friend Kael Anderson DO Division of Hospitalist Medicine [facility] Nutrition Assessment Type and Reason for Visit: Reassess Nutrition Recommendations/Plan: Continue with regular diet. Request a current weight. Please continue to record % of meals consumed daily on flow sheets. Monitor weight, labs, I/O, skin assessment, BM, and overall nutritional status. RD will follow up weekly. Malnutrition Assessment: Malnutrition Status: At risk for malnutrition (Comment) Context: Acute Illness Findings of the 6 clinical characteristics of malnutrition: Energy Intake: Mild decrease in energy intake (Comment) (Mainly consuming 51-100% of her meals based on flow sheets.) Weight Loss: No significant weight loss (Request a current weight to further assess.) Body Fat Loss: Unable to assess (Visually appear appropriate given her age.) Muscle Mass Loss: Unable to assess (Visually appear appropriate given her age) Fluid Accumulation: No significant fluid accumulation (per flow sheets) Flexible Shaft Winder Strength: Not Performed Nutrition Assessment: 83 y.o. female with past medical history of HTN, stroke, COPD, CKD, IBS. Admitted w/ vomiting and diarrhea. GI panel positive for Norovirus. Started on abx for concern of aspiration PNA and completed 5 day course of Unasyn 08/07. Pt's symptoms have improved during admission. Current diet is regular. Medically stable for discharge to SNF. Daughter wants a new facility- awaiting authorization. RD spoke with patient this am. Patient is blind- she prefers finger foods and requires someone to set up her trays. She is eating breakfast upon RD's visit- she so far consumed 1/2 breakfast sandwich and 1/2 banana bread. She is about to eat a banana. Per flow sheets- pt consumed 1-25% x 1 meal, 26-50% x 1 meal, 51-75% x 3 meals, and 76-100% x 7 meals. Patient denies need for oral nutrition supplements. Denies N/V, states BM this am. Spoke with diet office- patient is a room service assist. Instructed room service coordniator to go into patient's room to help with meal orders and not call as patient sometimes unable to locate her phone. Stated UBW 165#. RD unable to obtain a bed scale weight at this time as patient is sitting up in her bed. Estimated Daily Nutrient Needs: Energy Requirements Based On: Kcal/kg Weight Used for Energy Requirements: [place] Weight for Energy Calculation (kg): 54 kg Total Energy Requirements (kcals/day): 1647-3084 Weight Used for Protein Requirements: [place] Weight in Kg Used for Protein Requirements: 54 kg Estimated Total Protein (g/day): 54-65 Estimated Daily Total Fluid (ml/day): per MD Nutrition Related Findings: Vincent = 20, GI WDL, BM on 08/12, room service selective, no edema, I/O: 8951.7 (since admit) Wound Type: None Medications: amLODIPine, 5 mg, Oral, Daily apixaban, 5 mg, Oral, BID atorvastatin, 80 mg, Oral, Nightly atropine, 1 drop, Right Eye, Daily lisinopril, 40 mg, Oral, Daily metoprolol tartrate, 25 mg, Oral, BID WC mometasone-formoterol, 2 puff, Inhalation, BID prednisoLONE acetate, 1 drop, Right Eye, 4x daily timolol, 1 drop, Right Eye, BID tiotropium, 2 puff, Inhalation, Daily [Held by provider] sodium chloride, 100 mL/hr, Last Rate: Stopped (08/10/242057) Current Nutrition Therapies: Adult diet Regular Current Oral Intake Average Meal Intake: 51-75%, 76-100%, 26-50%, 1-25% Average Supplements Intake: None Ordered Anthropometric Measures: Height: 162 cm (5' 3.78") Current Body Weight: 74.8 kg (165 lb) (08/03) Weight Source: Bed Scale Usual Body Weight: 66.7 kg (147 lb) (per Epic 05/14; 160# 07/05) % Weight Change (Calculated): 12.2 [place] Body Weight (lbs) (Calculated): 119 lbs [place] Body Weight (Kg) (Calculated): 54 kg BMI (kg/m2) (Calculated): 28.5 Weight Adjustment For: No Adjustment BMI Categories: Overweight (BMI 25.0-29.9) Nutrition Interventions: Nutrition Education/Counseling: No recommendation at this time Coordination of Nutrition Care: Continue to monitor while inpatient Goals: Previous Goal Met: Progressing toward Goal(s) Goals: PO intake 50% or greater, by next RD assessment Nutrition Monitoring and Evaluation: Behavioral-Environmental Outcomes: None Identified Food/Nutrient Intake Outcomes: Food and Nutrient Intake Physical Signs/Symptoms Outcomes: Biochemical Data, GI Status, Fluid Status or Edema, Meal Time Behavior, Nutrition Focused Physical Findings, Skin, Weight Discharge Planning: Too soon to determine Janki Fields RD Contact: *[phone] Hospitalist Progress Note 08/12/2024 Subjective: Admit Date: 08/03/2024 PCP: Jared Evans MD Room#: [id number] A BRIEF HOSPITAL COURSE: Mel is a 83 y.o. female with past medical history below who presents with chief complaint listed above.Patient is an 83 y/o female who presented to [place] [facility] early this AM from local [place]. Patient reported she vomited a "large amount" early this AM. She didn't realized she had a BM until the nurses checked on her and she was incontinent of stool. Patient with recent hospitalization for acute angle closure glaucoma. Had surgery on the eye 1 week ago. Spoke with the daughter and she is to provide correct list of eye drops for the patient. Patient states she now feels fine. She denies abdominal pain or nausea. No SOB or CP, she has minimal cough. She was started on ABX for concern of aspiration and completed 5 day course of Unasyn on 08/07. GI panel positive for norovirus. Treated symptomatically. Pt discharged delayed awaiting auth to return to SNF. auth obtained to SNF 08/09. Discharge placed and transportation set, but daughter changed her mind and wanted a different facility so DC cancelled and now awaiting new facility and auth Interval History: 08/12: Pt seen and examined. Lying in bed. No complaints. Hypertensive all of yesterday, lowest SBP 160 so not at goal so added amlodipine 5mg today and will monitor Adult diet Regular 24HR INTAKE/OUTPUT: Intake/Output Summary (Last 24 hours) at 08/12/2024 1117 Last data filed at 08/12/2024 0830 Gross per 24 hour Intake 150 ml Output -- Net 150 ml Past Medical History: Past Medical History: Diagnosis Date Arrhythmia PAF Asthma Chronic kidney disease COPD (chronic obstructive pulmonary disease) (HCC) DVT (deep venous thrombosis) ([facility]) Essential hypertension 03/07/2020 GERD (gastroesophageal reflux disease) Hiatal hernia IBS (irritable bowel syndrome) Pure hypercholesterolemia 03/07/2020 PVD (peripheral vascular disease) ([facility]) Stroke ([facility]) LABS: CBC: No results for input(s): "WBC", "RBC", "HGB", "HCT", "MCV", "RDW", "PLT" in the last 72 hours. BMP: No results for input(s): "NA", "K", "CL", "CO2", "BUN", "CREATININE", "GLUCOSE", "CALCIUM", "ANIONGAP" in the last 72 hours. LIVER PROFILE: No results for input(s): "AST", "ALT", "BILITOT", "ALKPHOS", "PROT" in the last 72 hours. No lab exists for component: LABALBU PT/INR: No results for input(s): "PROTIME", "INR" in the last 72 hours. CARDIAC ENZYMES: No results for input(s): "TROPONINI" in the last 72 hours. Procalcitonin: No results found for: "PROCAL" COVID-19 PCR: No results for input(s): "COVID19" in the last 72 hours. Objective: Vitals: BP 155/98 (BP Location: Left arm, Patient Position: Sitting) Pulse 83 Temp 36.3 C (97.3 F) (Temporal) Resp 18 Ht 5' 3.78" (1.62 m) Wt 165 lb 5.5 oz (75 kg) LMP (LMP Unknown) SpO2 96% BMI 28.58 kg/m Pulse Ox: SpO2 Av % Min: 94 % Max: 96 % Supplemental O2: GENERAL: lying in bed comfortably, awake and alert HEENT: normocephalic, non-traumatic, MMM NECK: supple, trachea midline HEART: RRR, normal S1 and S2 LUNGS: non labored, no wheeze ABD: soft, non-distended MSK: no edema noted SKIN: warm, dry Medications: Scheduled PRN amLODIPine, 5 mg, Oral, Daily apixaban, 5 mg, Oral, BID atorvastatin, 80 mg, Oral, Nightly atropine, 1 drop, Right Eye, Daily lisinopril, 40 mg, Oral, Daily metoprolol tartrate, 25 mg, Oral, BID WC mometasone-formoterol, 2 puff, Inhalation, BID prednisoLONE acetate, 1 drop, Right Eye, 4x daily timolol, 1 drop, Right Eye, BID tiotropium, 2 puff, Inhalation, Daily PRN medications: acetaminophen OR acetaminophen, erythromycin, ipratropium-albuterol, ondansetron ODT OR ondansetron Continuous [Held by provider] sodium chloride, 100 mL/hr, Last Rate: Stopped (08/10/242057) Assessment Data: Acute, acute on chronic, unstable/uncontrolled chronic problems/diagnoses: Aspiration pneumonitis Vomiting and diarrhea 2/2 norovirus LORENZA on CKD 3 Stable chronic problems affecting care, new non-acute diagnoses: Glaucoma and detached retina Afib COPD PAD HTN- added amlodipine due to persistent htn DVT 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 HLD Blindness Plan As a result of the above findings & factors, the following mgmt was pursued: - completed ABX 08/07 (total 5 days per abx stewardship) - IVF - LORENZA resolved - passed bedside swallow - advance diet as tolerated - medically stable to DC - nausea resolved - am labs, replace lytes prn - PT/OT/CM/SW - delirium precautions: increase activity - DVT prophylaxis: enoxaparin and encourage ambulation Advance Directive: DNR-CCA Anticipated Discharge - Date - no medical barrier to discharge - Location - Skilled Facility - Pending the following - authorization and bed availability Pt had auth to SNF, but daughter wanted different facility so new facility chosen and now awaiting new auth Total time spent (which include face to face and non face to face encounters) : 25 minutes Extended Emergency Contact Information Primary Emergency Contact: José Miguel Castillo/ Fidel Mobile Relation: Mother Secondary Emergency Contact: Damaris Villafana NOT CALL-TERMINALLY ILL Mobile Relation: Friend Kael Anderson DO Division of Hospitalist Medicine [facility] Hospitalist Progress Note 08/11/2024 Subjective: Admit Date: 08/03/2024 PCP: Jared Evans MD Room#: [id number] A BRIEF HOSPITAL COURSE: Mel is a 83 y.o. female with past medical history below who presents with chief complaint listed above.Patient is an 83 y/o female who presented to [place] ER early this AM from local [place] for [place] and diarrhea. Patient reported she vomited a "large amount" early this AM. She didn't realized she had a BM until the nurses checked on her and she was incontinent of stool. Patient with recent hospitalization for acute angle closure glaucoma. Had surgery on the eye 1 week ago. Spoke with the daughter and she is to provide correct list of eye drops for the patient. Patient states she now feels fine. She denies abdominal pain or nausea. No SOB or CP, she has minimal cough. She was started on ABX for concern of aspiration and completed 5 day course of Unasyn on 08/07. GI panel positive for norovirus. Treated symptomatically. Pt discharged delayed awaiting auth to return to SNF. auth obtained to SNF 08/09. Discharge placed and transportation set, but daughter changed her mind and wanted a different facility so DC cancelled and now awaiting new facility and auth Interval History: 08/11: Pt seen and examined. Sitting in chair. No complaints. Adult diet Regular 24HR INTAKE/OUTPUT: No intake or output data in the 24 hours ending 08/11/24 1323 Past Medical History: Past Medical History: Diagnosis Date Arrhythmia PAF Asthma Chronic kidney disease COPD (chronic obstructive pulmonary disease) (HCC) DVT (deep venous thrombosis) (HCC) Essential hypertension 03/07/2020 GERD (gastroesophageal reflux disease) Hiatal hernia IBS (irritable bowel syndrome) Pure hypercholesterolemia 03/07/2020 PVD (peripheral vascular disease) (HCC) Stroke (HCC) LABS: CBC: No results for input(s): "WBC", "RBC", "HGB", "HCT", "MCV", "RDW", "PLT" in the last 72 hours. BMP: No results for input(s): "NA", "K", "CL", "CO2", "BUN", "CREATININE", "GLUCOSE", "CALCIUM", "ANIONGAP" in the last 72 hours. LIVER PROFILE: No results for input(s): "AST", "ALT", "BILITOT", "ALKPHOS", "PROT" in the last 72 hours. No lab exists for component: LABALBU PT/INR: No results for input(s): "PROTIME", "INR" in the last 72 hours. CARDIAC ENZYMES: No results for input(s): "TROPONINI" in the last 72 hours. Procalcitonin: No results found for: "PROCAL" COVID-19 PCR: No results for input(s): "COVID19" in the last 72 hours. Objective: Vitals: BP (!) 181/79 (BP Location: Left arm, Patient Position: Lying) Pulse 92 Temp 36.6 C (97.8 F) (Temporal) Resp 16 Ht 5' 3.78" (1.62 m) Wt 165 lb 5.5 oz (75 kg) LMP (LMP Unknown) SpO2 94% BMI 28.58 kg/m Pulse Ox: SpO2 Av.5 % Min: 93 % Max: 94 % Supplemental O2: GENERAL: sitting in chair comfortably, awake and alert HEENT: normocephalic, non-traumatic, MMM NECK: supple, trachea midline HEART: RRR, normal S1 and S2 LUNGS: non labored, no wheeze ABD: soft, non-distended MSK: no edema noted SKIN: warm, dry Medications: Scheduled PRN apixaban, 5 mg, Oral, BID atorvastatin, 80 mg, Oral, Nightly atropine, 1 drop, Right Eye, Daily lisinopril, 40 mg, Oral, Daily metoprolol tartrate, 25 mg, Oral, BID WC mometasone-formoterol, 2 puff, Inhalation, BID prednisoLONE acetate, 1 drop, Right Eye, 4x daily timolol, 1 drop, Right Eye, BID tiotropium, 2 puff, Inhalation, Daily PRN medications: acetaminophen OR acetaminophen, erythromycin, ipratropium-albuterol, ondansetron ODT OR ondansetron Continuous [Held by provider] sodium chloride, 100 mL/hr, Last Rate: Stopped (08/10/242057) Assessment Data: Acute, acute on chronic, unstable/uncontrolled chronic problems/diagnoses: Aspiration pneumonitis Vomiting and diarrhea 2/2 norovirus LORENZA on CKD 3 Stable chronic problems affecting care, new non-acute diagnoses: Glaucoma and detached retina Afib COPD PAD HTN DVT 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 HLD Blindness Plan As a result of the above findings & factors, the following mgmt was pursued: - completed ABX 08/07 (total 5 days per abx stewardship) - IVF - LORENZA resolved - passed bedside swallow - advance diet as tolerated - medically stable to DC - nausea resolved - am labs, replace lytes prn - PT/OT/CM/SW - delirium precautions: increase activity - DVT prophylaxis: enoxaparin and encourage ambulation Advance Directive: DNR-CCA Anticipated Discharge - Date - no medical barrier to discharge - Location - Skilled Facility - Pending the following - authorization and bed availability Pt had auth to SNF, but daughter wanted different facility so new facility chosen and now awaiting new auth Total time spent (which include face to face and non face to face encounters) : 25 minutes Extended Emergency Contact Information Primary Emergency Contact: José Miguel Castillo/ Fidel Mobile Relation: Mother Secondary Emergency Contact: Damaris Villafana DO NOT CALL-TERMINALLY ILL Mobile Relation: Friend Kael Anderson DO Division of Hospitalist Medicine Acute care [facility] Hospitalist Progress Note 08/10/2024 Subjective: Admit Date: 08/03/2024 PCP: Jared Evans MD Room#: [id number] A BRIEF HOSPITAL COURSE: Mel is a 83 y.o. female with past medical history below who presents with chief complaint listed above.Patient is an 83 y/o female who presented to [place] ER early this AM from local [place]. Patient reported she vomited a "large amount" early this AM. She didn't realized she had a BM until the nurses checked on her and she was incontinent of stool. Patient with recent hospitalization for acute angle closure glaucoma. Had surgery on the eye 1 week ago. Spoke with the daughter and she is to provide correct list of eye drops for the patient. Patient states she now feels fine. She denies abdominal pain or nausea. No SOB or CP, she has minimal cough. She was started on ABX for concern of aspiration and completed 5 day course of Unasyn on 08/07. GI panel positive for norovirus. Treated symptomatically. Pt discharged delayed awaiting auth to return to SNF. auth obtained to SNF 08/09. Discharge placed and transportation set, but daughter changed her mind and wanted a different facility so DC cancelled and now awaiting new facility and auth Interval History: 08/10: Pt seen and examined. Lying in bed. No complaints. Notified late yesterday that auth obtained to SNF. Discharge placed and transportation set, but daughter changed her mind and wanted a different facility so DC cancelled and now awaiting new facility and auth Adult diet Regular 24HR INTAKE/OUTPUT: Intake/Output Summary (Last 24 hours) at 08/10/2024 1243 Last data filed at 08/09/2024 1733 Gross per 24 hour Intake 150 ml Output -- Net 150 ml Past Medical History: Past Medical History: Diagnosis Date Arrhythmia PAF Asthma Chronic kidney disease COPD (chronic obstructive pulmonary disease) ([facility]) DVT (deep venous thrombosis) ([facility]) Essential hypertension 03/07/2020 GERD (gastroesophageal reflux disease) Hiatal hernia IBS (irritable bowel syndrome) Pure hypercholesterolemia 03/07/2020 PVD (peripheral vascular disease) ([facility]) Stroke ([facility]) LABS: CBC: No results for input(s): "WBC", "RBC", "HGB", "HCT", "MCV", "RDW", "PLT" in the last 72 hours. BMP: No results for input(s): "NA", "K", "CL", "CO2", "BUN", "CREATININE", "GLUCOSE", "CALCIUM", "ANIONGAP" in the last 72 hours. LIVER PROFILE: No results for input(s): "AST", "ALT", "BILITOT", "ALKPHOS", "PROT" in the last 72 hours. No lab exists for component: LABALBU PT/INR: No results for input(s): "PROTIME", "INR" in the last 72 hours. CARDIAC ENZYMES: No results for input(s): "TROPONINI" in the last 72 hours. Procalcitonin: No results found for: "PROCAL" COVID-19 PCR: No results for input(s): "COVID19" in the last 72 hours. Objective: Vitals: BP (!) 176/90 (BP Location: Right arm, Patient Position: Lying) Pulse 74 Temp 36.6 C (97.9 F) (Temporal) Resp 20 Ht 5' 3.78" (1.62 m) Wt 165 lb 5.5 oz (75 kg) LMP (LMP Unknown) SpO2 94% BMI 28.58 kg/m Pulse Ox: SpO2 Av.7 % Min: 94 % Max: 96 % Supplemental O2: GENERAL: lying in bed comfortably, awake and alert HEENT: normocephalic, non-traumatic, MMM NECK: supple, trachea midline HEART: RRR, normal S1 and S2 LUNGS: non labored, no wheeze ABD: soft, non-distended MSK: no edema noted SKIN: warm, dry Medications: Scheduled PRN apixaban, 5 mg, Oral, BID atorvastatin, 80 mg, Oral, Nightly atropine, 1 drop, Right Eye, Daily lisinopril, 40 mg, Oral, Daily metoprolol tartrate, 25 mg, Oral, BID WC mometasone-formoterol, 2 puff, Inhalation, BID prednisoLONE acetate, 1 drop, Right Eye, 4x daily timolol, 1 drop, Right Eye, BID tiotropium, 2 puff, Inhalation, Daily PRN medications: acetaminophen OR acetaminophen, erythromycin, ipratropium-albuterol, ondansetron ODT OR ondansetron Continuous sodium chloride, 100 mL/hr, Last Rate: 100 mL/hr (08/09/24 0813) Assessment Data: Acute, acute on chronic, unstable/uncontrolled chronic problems/diagnoses: Aspiration pneumonitis Vomiting and diarrhea 2/2 norovirus LORENZA on CKD 3 Stable chronic problems affecting care, new non-acute diagnoses: Glaucoma and detached retina Afib COPD PAD HTN DVT 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 HLD Blindness Plan As a result of the above findings & factors, the following mgmt was pursued: - completed ABX 08/07 (total 5 days per abx stewardship) - IVF - LORENZA resolved - passed bedside swallow - advance diet as tolerated - medically stable to DC - nausea resolved - am labs, replace lytes prn - PT/OT/CM/SW - delirium precautions: increase activity - DVT prophylaxis: enoxaparin and encourage ambulation Advance Directive: DNR-CCA Anticipated Discharge - Date - no medical barrier to discharge - Location - Skilled Facility - Pending the following - authorization and bed availability Pt had auth to SNF, but daughter wanted different facility so new facility chosen and now awaiting new auth Total time spent (which include face to face and non face to face encounters) : 25 minutes Extended Emergency Contact Information Primary Emergency Contact: José Miguel Castillo/ Fidel Mobile Relation: Mother Secondary Emergency Contact: Damaris Villafana DO NOT CALL-TERMINALLY ILL Mobile Relation: Friend Kael Anderson DO Division of Hospitalist Medicine [facility] Hospitalist Progress Note 08/09/2024 Subjective: Admit Date: 08/03/2024 PCP: Jared Evans MD Room#: [id number] A BRIEF HOSPITAL COURSE: Mel is a 83 y.o. female with past medical history below who presents with chief complaint listed above.Patient is an 83 y/o female who presented to [place] ER early this AM [place]. Patient reported she vomited a "large amount" early this AM. She didn't realized she had a BM until the nurses checked on her and she was incontinent of stool. Patient with recent hospitalization for acute angle closure glaucoma. Had surgery on the eye 1 week ago. Spoke with the daughter and she is to provide correct list of eye drops for the patient. Patient states she now feels fine. She denies abdominal pain or nausea. No SOB or CP, she has minimal cough. She was started on ABX for concern of aspiration and completed 5 day course of Unasyn on 08/07. GI panel positive for norovirus. Treated symptomatically. Pt discharged delayed awaiting auth to return to SNF Interval History: 08/09: Pt seen and examined. Sitting in bedside chair. No complaints. Awaiting auth to return to SNF Adult diet Regular 24HR INTAKE/OUTPUT: Intake/Output Summary (Last 24 hours) at 08/09/2024 1405 Last data filed at 08/09/2024 0934 Gross per 24 hour Intake 2810 ml Output -- Net 2810 ml Past Medical History: Past Medical History: Diagnosis Date Arrhythmia PAF Asthma Chronic kidney disease COPD (chronic obstructive pulmonary disease) (HCC) DVT (deep venous thrombosis) (HCC) Essential hypertension 03/07/2020 GERD (gastroesophageal reflux disease) Hiatal hernia IBS (irritable bowel syndrome) Pure hypercholesterolemia 03/07/2020 PVD (peripheral vascular disease) (HCC) Stroke (HCC) LABS: CBC: No results for input(s): "WBC", "RBC", "HGB", "HCT", "MCV", "RDW", "PLT" in the last 72 hours. BMP: No results for input(s): "NA", "K", "CL", "CO2", "BUN", "CREATININE", "GLUCOSE", "CALCIUM", "ANIONGAP" in the last 72 hours. LIVER PROFILE: No results for input(s): "AST", "ALT", "BILITOT", "ALKPHOS", "PROT" in the last 72 hours. No lab exists for component: LABALBU PT/INR: No results for input(s): "PROTIME", "INR" in the last 72 hours. CARDIAC ENZYMES: No results for input(s): "TROPONINI" in the last 72 hours. Procalcitonin: No results found for: "PROCAL" COVID-19 PCR: No results for input(s): "COVID19" in the last 72 hours. Objective: Vitals: BP (!) 156/104 Pulse 75 Temp 36.7 C (98 F) (Temporal) Resp 16 Ht 5' 3.78" (1.62 m) Wt 165 lb 5.5 oz (75 kg) LMP (LMP Unknown) SpO2 96% BMI 28.58 kg/m Pulse Ox: SpO2 Av % Min: 94 % Max: 96 % Supplemental O2: GENERAL: sitting in bed comfortably, awake and alert HEENT: normocephalic, non-traumatic, MMM NECK: supple, trachea midline HEART: RRR, normal S1 and S2 LUNGS: non labored, no wheeze ABD: soft, non-distended MSK: no edema noted SKIN: warm, dry Medications: Scheduled PRN apixaban, 5 mg, Oral, BID atorvastatin, 80 mg, Oral, Nightly atropine, 1 drop, Right Eye, Daily lisinopril, 40 mg, Oral, Daily metoprolol tartrate, 25 mg, Oral, BID WC mometasone-formoterol, 2 puff, Inhalation, BID prednisoLONE acetate, 1 drop, Right Eye, 4x daily timolol, 1 drop, Right Eye, BID tiotropium, 2 puff, Inhalation, Daily PRN medications: acetaminophen OR acetaminophen, erythromycin, ipratropium-albuterol, ondansetron ODT OR ondansetron Continuous sodium chloride, 100 mL/hr, Last Rate: 100 mL/hr (08/09/24 0813) Assessment Data: Acute, acute on chronic, unstable/uncontrolled chronic problems/diagnoses: Aspiration pneumonitis Vomiting and diarrhea 2/2 norovirus LORENZA on CKD 3 Stable chronic problems affecting care, new non-acute diagnoses: Glaucoma and detached retina Afib COPD PAD HTN DVT 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 HLD Blindness Plan As a result of the above findings & factors, the following mgmt was pursued: - completed ABX 08/07 (total 5 days per abx stewardship) - IVF - LORENZA resolved - passed bedside swallow - advance diet as tolerated - medically stable to DC - nausea resolved - am labs, replace lytes prn - PT/OT/CM/SW - delirium precautions: increase activity - DVT prophylaxis: enoxaparin and encourage ambulation Advance Directive: DNR-CCA Anticipated Discharge - Date - no medical barrier to discharge - Location - Skilled Facility - Pending the following - authorization and bed availability Total time spent (which include face to face and non face to face encounters) : 25 minutes Extended Emergency Contact Information Primary Emergency Contact: José Miguel Castillo/ Fidel Mobile Relation: Mother Secondary Emergency Contact: Damaris Villafana DO NOT CALL-TERMINALLY ILL Mobile Relation: Friend Kael Anderson DO Division of Hospitalist Medicine [facility] Images from the original note were not included. OCCUPATIONAL THERAPY [facility] Initial Evaluation Name/MRN: Mel Pop ([id number]) Evaluation Date: 08/08/2024 Date of : 1940 Admission Date: 08/03/2024 2:22 AM Age: 83 y.o. [facility] Discharge Recommendation: Intermediate Facility Assessment IMPRESSION: Pt would benefit from continued therapies to maximize potential and increase indep with ADLs and transfers. Recommend SNF level therapies at discharge. Admitting Diagnosis: Aspiration pneumonitis (+)Norovirus Performance Deficits /Impairments: Increased Pain, Decreased Functional Mobility, Decreased ADL status, Decreased Safety Awareness, Decreased Endurance, Decreased Balance, and Decreased Posture Prognosis: Fair Decision Making: Medium Complexity Subjective Pt reclined in bedside chair. Pt agreeable to OT. *Pt is blind.* Pain: 0-10 pain scale: 8/10 Location: behind right eye Past Medical History: Past Medical History: Diagnosis Date Arrhythmia PAF Asthma Chronic kidney disease COPD (chronic obstructive pulmonary disease) ([facility]) DVT (deep venous thrombosis) ([facility]) Essential hypertension 03/07/2020 GERD (gastroesophageal reflux disease) Hiatal hernia IBS (irritable bowel syndrome) Pure hypercholesterolemia 03/07/2020 PVD (peripheral vascular disease) ([facility]) Stroke ([facility]) Past Surgical History: Past Surgical History: Procedure Laterality Date ANKLE SURGERY ARM SURGERY (HISTORICAL) Right COLONOSCOPY ESOPHAGEAL DILATION EYE SURGERY 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 HYSTERECTOMY ORTHOPEDIC SURGERY THROMBECTOMY Right 04/06/2024 RLE mechanical thrombectomy (Krzysztof) Admission Diagnosis: Patient Active Problem List Diagnosis Date Noted Aspiration pneumonitis (CMS/HCC) ([facility]) 08/03/2024 Visual disturbance, subjective 07/06/2024 Retinal detachment, right 07/05/2024 Vision loss of right eye 07/05/2024 Acute venous embolism and thrombosis of deep vessels of proximal lower extremity ([facility]) 04/14/2024 Peripheral arterial disease ([facility]) 04/03/2024 Immunodeficiency due to conditions classified elsewhere ([facility]) 07/27/2023 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 ([facility]) 07/27/2023 Bilateral pneumonia 06/16/2022 COVID-19 06/16/2022 Hypothyroidism 06/16/2022 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[facility]) 06/16/2022 Cellulitis 05/18/2022 Nicotine use disorder 05/18/2022 Acute venous embolism and thrombosis of deep vessels of proximal end of right lower extremity ([facility]) 04/19/2024 Atrial fibrillation, unspecified type ([facility]) 04/19/2024 Irritable bowel syndrome with diarrhea 03/07/2020 Microscopic hematuria 03/07/2020 Left retinal detachment 03/07/2020 Hyperglycemia 03/07/2020 Osteopenia of left femoral neck 03/07/2020 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 03/07/2020 Seasonal allergies 03/07/2020 Chronic renal insufficiency, stage III (moderate) ([facility]) 03/07/2020 Major depression, single episode, in complete remission ([facility]) 03/07/2020 Gastroesophageal reflux disease without esophagitis 03/07/2020 Essential hypertension 03/07/2020 Pure hypercholesterolemia 03/07/2020 Overweight 03/07/2020 Psoriasis 03/07/2020 History of cerebrovascular accident 03/07/2020 Atrial fibrillation ([facility]) 03/07/2020 Chronic obstructive pulmonary disease ([facility]) 03/07/2020 Finger osteomyelitis, right ([facility]) 03/06/2020 Medical Precautions: Enhanced Contact Proper PPE donned/doffed in accordance with facility standards. Fall Risk: Nugent Fall Risk Score: 85 (Medium Risk) Nugent Fall Risk Score: 85 (High Risk) Precautions/Restrictions: (+)Norovirus Family/Caregiver Present: none Overall Cognitive Status: WFL Overall Orientation Status: Ox3 Social/Functional History Patient admitted from SNF. Assistive Equipment: front wheeled walker Prior Level of Function Prior Level of ADL Function: Required Assist Prior Level of Mobility: Required Assist; Device: Front wheeled walker Prior Level of Transfers: Required Assist Objective ADLs Toileting: Max Assist Upper Extremity Assessment AROM: WFL Strength: WFL Transfers/Mobility Sit to stand: Min Assist Stand to sit: Min Assist Sitting balance: SBA Standing balance: Min Assist, Static standing balance x 2 trials both with Min assist and bilateral UE support. Pt performed sit to stands from bedside chair 2-3 times Pt declined to ambulate to the bathroom. Used bedpan. Max assist for hygiene. Coordination: Normal Coordination Tone: Normal Tone Sensation: Normal Sensation Vision: Pt is blind. States she sees black. Hearing: normal AM-PAC AM-PAC Inpatient Daily Activity Raw Score: 14 ADL Inpatient CMS G-Code Modifier: CK Plan Pt would benefit from skilled acute OT services to address Balance Training, Self-Care/ADL Training, Functional Mobility Training, Endurance Training, Safety Education and Training, and Patient/Caregiver Training. Frequency: 3x/week for 4 weeks Barriers: Pain, Impaired balance, Decreased endurance, and Blind Safety/Education Safety Safety Devices in place: All fall risk precautions in place, call light within reach, left in chair, and no alarms engaged upon entry Restraints: No Education Education Given To: patient Education Provided: OT Role, Plan of Care, ADL Adaptive Strategies, and Transfer Training Education Method: Verbal Barriers to Learning: Vision Education Outcome: Continued Education Needed Goals Patient Stated Goal: To get stronger. Encounter Problems Encounter Problems (Active) Balance Static standing balance x 2 mins with supervision. Start: 08/08/24 Expected End: 09/05/24 Dressings Lower Extremities LE dressing with supervision. Start: 08/08/24 Expected End: 09/05/24 Transfers Toilet transfer with supervision. Start: 08/08/24 Expected End: 09/05/24 Therapy Time Individual Co-Treatment Co-Evaluation Time In 1430 Time Out 1455 Minutes 25 Timed Code Treatment Minutes: 9 Minutes (funct act - 1) Patient's Occupational Therapy Plan of Care supervision is transferred to a [facility] Occupational Therapist. Goals and/or treatment plan was established in collaboration with patient/family/other representatives. Shannon Fernandez MS, OTR/L Images from the original note were not included. PHYSICAL THERAPY [facility] Treatment Note Name/MRN: Mel Pop ([id number]) Date of : 1940 Age: 83 y.o. 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 Pt ambulated 50 ft in room with FWW and CGA. Pt required direction on where to walk due to pt being blind. Pt experienced SOB/decreased endurance after ambulation. Pt unsafe to return home due to decreased endurance and decreased functional mobility independence. Upon discharge recommend pt goes to SNF. Subjective Pt awake in chair upon PT arrival. Pt agreeable to PT session. Pain: Pt did not complain of pain during PT session. Medical Precautions: Enhanced Contact Proper PPE donned/doffed in accordance with facility standards. Fall Risk: Nugent Fall Risk Score: 85 (Medium Risk) Nugent Fall Risk Score: 85 (High Risk) Precautions/Restrictions: Other Position/Activity Restriction: IV, vitrectomy OD Overall Cognitive Status: WNL Overall Orientation Status: Oriented to Person Family/Caregiver Present: none Objective Transfers/Mobility Sit to stand: Min Assist Stand to sit: Min Assist Pt requring Min (A) for STS transfers. Stating she needs something to hold on to. Pt felt more comfortable holding onto FWW. Device(s) used: Front wheeled walker Ambulation Ambulation 1 Assistive device(s) used: Front wheeled walker Assist level: Contact Guard Distance (ft): 50 Quality of gait: slow jenni, v/c's for direction, SOB upon ambulation. Gaitbelt used. Exercises Exercises Comments: Standing marches bLE 1x12 while holding onto walker and CGA. Plan Continue acute PT per plan of care. Safety/Education Safety Safety Devices in place: call light within reach, left in chair, and no alarms engaged upon entry Restraints: No Education Education Given To: patient Education Provided: PT Role Education Method: Verbal Barriers to Learning: Education Outcome: Outcome Measures AM-PAC AM-PAC Inpatient Mobility Raw Score (No Stairs) : 15 JH-HLM JH-HLM Score: Walked 25 ft or more (i.e. walked outside of room) Goals Patient Stated Goal: keep getting up, get back to [place]. Encounter Problems Encounter Problems (Active) Balance Patient will maintain static standing balance for 3 minutes with supervision in order to demonstrate decreased risk of falling. (Progressing) Start: 08/06/24 Expected End: 08/20/24 Mobility Patient will ambulate 75 feet with min assist and device in order to improve safety and independence with mobility. (Progressing) Start: 08/06/24 Expected End: 08/20/24 Will need assist due to vision Transfers Patient will perform bed mobility with supervision in order to improve independence and prepare for out of bed mobility. (Not Addressed) Start: 08/06/24 Expected End: 08/20/24 Patient will complete sit to stand transfer with supervision to device in order to improve safety and prepare for out of bed mobility. (Progressing) Start: 08/06/24 Expected End: 08/20/24 Therapy Time Individual Co-treatment Time In 1409 Time Out 1423 Minutes 14 [place], SPT Cosigned by Cathi Hough PT at 08/08/2024 2:49 PM EST Hospitalist Progress Note 08/08/2024 Subjective: Admit Date: 08/03/2024 PCP: Jared Evans MD Room#: [id number] A BRIEF HOSPITAL COURSE: Mel is a 83 y.o. female with past medical history below who presents with chief complaint listed above.Patient is an 83 y/o female who presented to [place] ER early this AM from local [place] for vomiting and diarrhea. Patient reported she vomited a "large amount" early this AM. She didn't realized she had a BM until the nurses checked on her and she was incontinent of stool. Patient with recent hospitalization for acute angle closure glaucoma. Had surgery on the eye 1 week ago. Spoke with the daughter and she is to provide correct list of eye drops for the patient. Patient states she now feels fine. She denies abdominal pain or nausea. No SOB or CP, she has minimal cough. She was started on ABX for concern of aspiration and completed 5 day course of Unasyn on 08/07. GI panel positive for norovirus. Treated symptomatically. Pt discharged delayed awaiting auth to return to SNF Interval History: 08/08: Pt seen and examined. Sitting in bedside chair. No complaints. Awaiting auth to return to SNF- needs repeat PT/OT evals per [facility] Adult diet Regular 24HR INTAKE/OUTPUT: Intake/Output Summary (Last 24 hours) at 08/08/2024 1432 Last data filed at 08/08/2024 0619 Gross per 24 hour Intake 1200 ml Output -- Net 1200 ml Past Medical History: Past Medical History: Diagnosis Date Arrhythmia PAF Asthma Chronic kidney disease COPD (chronic obstructive pulmonary disease) ([facility]) DVT (deep venous thrombosis) ([facility]) Essential hypertension 03/07/2020 GERD (gastroesophageal reflux disease) Hiatal hernia IBS (irritable bowel syndrome) Pure hypercholesterolemia 03/07/2020 PVD (peripheral vascular disease) ([facility]) Stroke ([facility]) LABS: CBC: Recent Labs 08/05/24 2343 WBC 7.3 RBC 3.96 HGB 10.3* HCT 33.3* MCV 84.1 RDW 18.9* PLT 235 BMP: Recent Labs 08/05/24 2343 NA 139 K 3.8 CL 115* CO2 17* BUN 9 CREATININE 0.91 GLUCOSE 92 CALCIUM 8.4* ANIONGAP 7 LIVER PROFILE: Recent Labs 08/05/24 2343 AST 21 ALT 24 BILITOT 0.9 ALKPHOS 72 PROT 5.5* PT/INR: No results for input(s): "PROTIME", "INR" in the last 72 hours. CARDIAC ENZYMES: No results for input(s): "TROPONINI" in the last 72 hours. Procalcitonin: No results found for: "PROCAL" COVID-19 PCR: No results for input(s): "COVID19" in the last 72 hours. Objective: Vitals: BP 153/83 (BP Location: Left arm, Patient Position: Sitting) Pulse 110 Temp 36.4 C (97.6 F) (Temporal) Resp 16 Ht 5' 3.78" (1.62 m) Wt 165 lb 5.5 oz (75 kg) LMP (LMP Unknown) SpO2 96% BMI 28.58 kg/m Pulse Ox: SpO2 Av % Min: 94 % Max: 96 % Supplemental O2: GENERAL: sitting in bed comfortably, awake and alert HEENT: normocephalic, non-traumatic, MMM NECK: supple, trachea midline HEART: RRR, normal S1 and S2 LUNGS: non labored, no wheeze ABD: soft, non-distended MSK: no edema noted SKIN: warm, dry Medications: Scheduled PRN apixaban, 5 mg, Oral, BID atorvastatin, 80 mg, Oral, Nightly atropine, 1 drop, Right Eye, Daily lisinopril, 40 mg, Oral, Daily metoprolol tartrate, 25 mg, Oral, BID WC mometasone-formoterol, 2 puff, Inhalation, BID prednisoLONE acetate, 1 drop, Right Eye, 4x daily timolol, 1 drop, Right Eye, BID tiotropium, 2 puff, Inhalation, Daily PRN medications: acetaminophen OR acetaminophen, erythromycin, ipratropium-albuterol, ondansetron ODT OR ondansetron Continuous sodium chloride, 100 mL/hr, Last Rate: 100 mL/hr (08/08/24 0200) Assessment Data: Acute, acute on chronic, unstable/uncontrolled chronic problems/diagnoses: Aspiration pneumonitis Vomiting and diarrhea 2/2 norovirus LORENZA on CKD 3 Stable chronic problems affecting care, new non-acute diagnoses: Glaucoma and detached retina Afib COPD PAD HTN DVT 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 HLD Blindness Plan As a result of the above findings & factors, the following mgmt was pursued: - completed ABX 08/07 (total 5 days per abx stewardship) - IVF - LORENZA resolved - passed bedside swallow - advance diet as tolerated - medically stable to DC - nausea resolved - am labs, replace lytes prn - PT/OT/CM/SW - delirium precautions: increase activity - DVT prophylaxis: enoxaparin and encourage ambulation Advance Directive: DNR-CCA Anticipated Discharge - Date - no medical barrier to discharge - Location - Skilled Facility - Pending the following - authorization and bed availability Total time spent (which include face to face and non face to face encounters) : 25 minutes Extended Emergency Contact Information Primary Emergency Contact: José Miguel Castillo/ Fidel Mobile Relation: Mother Secondary Emergency Contact: Damaris Villafana DO NOT CALL-TERMINALLY ILL Mobile Relation: Friend Kael Anderson DO Division of Hospitalist Medicine [employer] Hospitalist Progress Note 08/07/2024 Subjective: Admit Date: 08/03/2024 PCP: Jared Evans MD Room#: [id number] A BRIEF HOSPITAL COURSE: Mel is a 83 y.o. female with past medical history below who presents with chief complaint listed above.Patient is an 83 y/o female who presented to [place] ER early this AM from local [place] for vomiting and diarrhea. Patient reported she vomited a "large amount" early this AM. She didn't realized she had a BM until the nurses checked on her and she was incontinent of stool. Patient with recent hospitalization for acute angle closure glaucoma. Had surgery on the eye 1 week ago. Spoke with the daughter and she is to provide correct list of eye drops for the patient. Patient states she now feels fine. She denies abdominal pain or nausea. No SOB or CP, she has minimal cough. She was started on ABX for concern of aspiration and completed 5 day course of Unasyn on 08/07. GI panel positive for norovirus. Treated symptomatically. Pt discharged delayed awaiting auth to return to SNF Interval History: 08/07: Pt seen and examined. Sitting in bedside chair. No complaints. Awaiting auth to return to SNF Adult diet Regular 24HR INTAKE/OUTPUT: No intake or output data in the 24 hours ending 08/07/24 1526 Past Medical History: Past Medical History: Diagnosis Date Arrhythmia PAF Asthma Chronic kidney disease COPD (chronic obstructive pulmonary disease) ([facility]) DVT (deep venous thrombosis) ([facility]) Essential hypertension 03/07/2020 GERD (gastroesophageal reflux disease) Hiatal hernia IBS (irritable bowel syndrome) Pure hypercholesterolemia 03/07/2020 PVD (peripheral vascular disease) ([facility]) Stroke ([facility]) LABS: CBC: Recent Labs 08/05/24 0358 08/05/24 2343 WBC 6.5 7.3 RBC 3.78* 3.96 HGB 9.9* 10.3* HCT 31.9* 33.3* MCV 84.4 84.1 RDW 19.2* 18.9* PLT 242 235 BMP: Recent Labs 08/05/24 0358 08/05/24 2343 NA 134* 139 K 3.8 3.8 CL 108* 115* CO2 21* 17* BUN 13 9 CREATININE 0.89 0.91 GLUCOSE 85 92 CALCIUM 8.1* 8.4* ANIONGAP 5 7 LIVER PROFILE: Recent Labs 08/05/24 0358 08/05/24 2343 AST 24 21 ALT 27 24 BILITOT 0.6 0.9 ALKPHOS 74 72 PROT 5.2* 5.5* PT/INR: No results for input(s): "PROTIME", "INR" in the last 72 hours. CARDIAC ENZYMES: No results for input(s): "TROPONINI" in the last 72 hours. Procalcitonin: No results found for: "PROCAL" COVID-19 PCR: No results for input(s): "COVID19" in the last 72 hours. Objective: Vitals: BP (!) 171/99 (BP Location: Left arm, Patient Position: Sitting) Pulse 67 Temp 36.4 C (97.5 F) (Temporal) Resp 16 Ht 5' 3.78" (1.62 m) Wt 165 lb 5.5 oz (75 kg) LMP (LMP Unknown) SpO2 92% BMI 28.58 kg/m Pulse Ox: SpO2 Av.5 % Min: 92 % Max: 97 % Supplemental O2: GENERAL: sitting in bed comfortably, awake and alert HEENT: normocephalic, non-traumatic, MMM NECK: supple, trachea midline HEART: RRR, normal S1 and S2 LUNGS: non labored, no wheeze ABD: soft, non-distended MSK: no edema noted SKIN: warm, dry Medications: Scheduled PRN ampicillin-sulbactam, 3,000 mg, IntraVENous, q6h apixaban, 5 mg, Oral, BID atorvastatin, 80 mg, Oral, Nightly atropine, 1 drop, Right Eye, Daily lisinopril, 40 mg, Oral, Daily metoprolol tartrate, 25 mg, Oral, BID WC mometasone-formoterol, 2 puff, Inhalation, BID prednisoLONE acetate, 1 drop, Right Eye, 4x daily timolol, 1 drop, Right Eye, BID tiotropium, 2 puff, Inhalation, Daily PRN medications: acetaminophen OR acetaminophen, erythromycin, ipratropium-albuterol, ondansetron ODT OR ondansetron Continuous sodium chloride, 100 mL/hr, Last Rate: 100 mL/hr (08/06/24 3794) Assessment Data: Acute, acute on chronic, unstable/uncontrolled chronic problems/diagnoses: Aspiration pneumonitis Vomiting and diarrhea 2/2 norovirus LORENZA on CKD 3 Stable chronic problems affecting care, new non-acute diagnoses: Glaucoma and detached retina Afib COPD PAD HTN DVT 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 HLD Blindness Plan As a result of the above findings & factors, the following mgmt was pursued: - completed ABX 08/07 (total 5 days per abx stewardship) - IVF - LORENZA resolved - passed bedside swallow - advance diet as tolerated - medically stable to DC - nausea resolved - am labs, replace lytes prn - PT/OT/CM/SW - delirium precautions: increase activity - DVT prophylaxis: enoxaparin and encourage ambulation Advance Directive: DNR-CCA Anticipated Discharge - Date - no medical barrier to discharge - Location - Skilled Facility - Pending the following - authorization and bed availability Total time spent (which include face to face and non face to face encounters) : 25 minutes Extended Emergency Contact Information Primary Emergency Contact: SanchezJosé Miguel/ Fidel Mobile Relation: Mother Secondary Emergency Contact: Damaris Villafana DO NOT CALL-TERMINALLY ILL Mobile Relation: Friend Kael Anderson DO Division of Hospitalist Medicine [facility] Hospitalist Progress Note 08/06/2024 Subjective: Admit Date: 08/03/2024 PCP: Jared Evans MD Room#: [id number] A BRIEF HOSPITAL COURSE: Mel is a 83 y.o. female with past medical history below who presents with chief complaint listed above.Patient is an 83 y/o female who presented to [place] ER early this AM from local [place] for vomiting and diarrhea. Patient reported she vomited a "large amount" early this AM. She didn't realized she had a BM until the nurses checked on her and she was incontinent of stool. Patient with recent hospitalization for acute angle closure glaucoma. Had surgery on the eye 1 week ago. Spoke with the daughter and she is to provide correct list of eye drops for the patient. Patient states she now feels fine. She denies abdominal pain or nausea. No SOB or CP, she has minimal cough. She was started on ABX for concern of aspiration. Interval History: 08/04: She states she is feeling better. No new complaints. No overnight issues. Case and plan discussed with patient and bedside nurse. All questions answered. 08/05: Patient reports symptomatic improvement. No new complaints. Continues to have cough but improving. 08/06: No acute events overnight. Patient ready for DC. Adult diet Regular 24HR INTAKE/OUTPUT: No intake or output data in the 24 hours ending 08/06/24 1348 Past Medical History: Past Medical History: Diagnosis Date Arrhythmia PAF Asthma Chronic kidney disease COPD (chronic obstructive pulmonary disease) ([facility]) DVT (deep venous thrombosis) ([facility]) Essential hypertension 03/07/2020 GERD (gastroesophageal reflux disease) Hiatal hernia IBS (irritable bowel syndrome) Pure hypercholesterolemia 03/07/2020 PVD (peripheral vascular disease) ([facility]) Stroke ([facility]) LABS: CBC: Recent Labs 08/04/2444608/05/2435708/05/24 2343 WBC 5.6 6.5 7.3 RBC 3.88 3.78* 3.96 HGB 10.0* 9.9* 10.3* HCT 33.0* 31.9* 33.3* MCV 85.1 84.4 84.1 RDW 19.3* 19.2* 18.9* PLT 280 242 235 BMP: Recent Labs 08/04/2444608/05/248 08/05/24 2343 NA 139 134* 139 K 3.9 3.8 3.8 CL 112* 108* 115* CO2 21* 21* 17* BUN 26* 13 9 CREATININE 1.13* 0.89 0.91 GLUCOSE 153* 85 92 CALCIUM 8.2* 8.1* 8.4* ANIONGAP 6 5 7 LIVER PROFILE: Recent Labs 08/04/2444608/05/24 0358 08/05/24 2343 AST 25 24 21 ALT 26 27 24 BILITOT 0.5 0.6 0.9 ALKPHOS 68 74 72 PROT 5.2* 5.2* 5.5* PT/INR: No results for input(s): "PROTIME", "INR" in the last 72 hours. CARDIAC ENZYMES: No results for input(s): "TROPONINI" in the last 72 hours. Procalcitonin: No results found for: "PROCAL" COVID-19 PCR: No results for input(s): "COVID19" in the last 72 hours. Objective: Vitals: BP 123/73 (BP Location: Left arm, Patient Position: Sitting) Pulse 63 Temp 36.2 C (97.1 F) (Temporal) Resp 16 Ht 5' 3.78" (1.62 m) Wt 165 lb 5.5 oz (75 kg) LMP (LMP Unknown) SpO2 92% BMI 28.58 kg/m Pulse Ox: SpO2 Av.5 % Min: 91 % Max: 92 % Supplemental O2: Physical Exam Vitals reviewed. Constitutional: General: She is not in acute distress. Comments: Blind Cardiovascular: Rate and Rhythm: Normal rate and regular rhythm. Pulmonary: Effort: Pulmonary effort is normal. Breath sounds: Normal breath sounds. Abdominal: General: Bowel sounds are normal. Palpations: Abdomen is soft. Neurological: Mental Status: She is alert. Medications: Scheduled PRN ampicillin-sulbactam, 3,000 mg, IntraVENous, q6h apixaban, 5 mg, Oral, BID atorvastatin, 80 mg, Oral, Nightly atropine, 1 drop, Right Eye, Daily lisinopril, 40 mg, Oral, Daily metoprolol tartrate, 25 mg, Oral, BID WC mometasone-formoterol, 2 puff, Inhalation, BID prednisoLONE acetate, 1 drop, Right Eye, 4x daily timolol, 1 drop, Right Eye, BID tiotropium, 2 puff, Inhalation, Daily PRN medications: acetaminophen OR acetaminophen, erythromycin, ipratropium-albuterol, ondansetron ODT OR ondansetron Continuous sodium chloride, 100 mL/hr, Last Rate: 100 mL/hr (08/05/24 1815) Assessment Data: NA (LOW: 2x CAT1 or independent historian MOD: 3x CAT1 or 1x CAT3 EXTENSIVE: 3x CAT1 and 1x CAT3) 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 Risk: Low risk diagnostic testing or treatment (LOW). Advance Directive: DNR-CCA Anticipated Discharge - Date - 08/06 - 08/07 - Location - Skilled Facility - Pending the following - authorization and bed availability Total time spent (which include face to face and non face to face encounters) : 25 minutes Toxic drug monitoring/narrow therapeutic index drug monitoring : # Drug name : N/A # Route administered : N/A # Method of monitoring : N/A Extended Emergency Contact Information Primary Emergency Contact: Maxwell Castilloweston/ Fidel Mobile Relation: Mother Secondary Emergency Contact: Damaris Villafana DO NOT CALL-TERMINALLY ILL Mobile Relation: Friend Kayden Tatum MD Division of Hospitalist Medicine [facility] Images from the original note were not included. PHYSICAL THERAPY [facility] Initial Evaluation Name/MRN: Mel Pop ([id number]) Evaluation Date: 08/06/2024 Date of : 1940 Admission Date: 08/03/2024 2:22 AM Age: 83 y.o. Room/Bed: N3-772/N7-793 A Discharge Recommendation: Intermediate Facility (pt from SNF at baseline) Equipment Needed: (pt uses FWW MANAGER [employer]) Assessment IMPRESSION: Pt's Vincent scoring has varied between 12 and 18-thus therapy did sign off on 08-05. Pt is appropriate to be seen by PT. Pt s/o vitrectomy, so pt has no vision currently. Pt incontinent of stool. Supine to sit and sit to stand min of 1. Then stood to FWW min of 1. Amb in room 20'-min to guide FWW (pt has zero vision currently). Pt has not been keeping head down position as would be ideal. Pt elated to be out of bed. Plan is for pt to return to SNF-level care (pt was receiving PT [employer]NAGER [employer]) Admitting Diagnosis: aspiration pneumonitis, + Norovirus. S/p vitrectomy OD approx one week ago. Prognosis: good Performance Deficits /Impairments: Decreased Functional Mobility, Decreased Endurance, and Decreased Vision/Visual Deficit Decision Making: Medium Complexity Subjective Pt in bed. Due to vision loss she states she has no idea what day it is or what time it is. She states she feels like she has been hospitalized for 10 days (today is day 4). Denies pain at rest. Was incontinent of stool and did not know. Pt with very sore perineum during hygiene Wants to be up OOB. Past Medical History: Past Medical History: Diagnosis Date Arrhythmia PAF Asthma Chronic kidney disease COPD (chronic obstructive pulmonary disease) ([facility]) DVT (deep venous thrombosis) ([facility]) Essential hypertension 03/07/2020 GERD (gastroesophageal reflux disease) Hiatal hernia IBS (irritable bowel syndrome) Pure hypercholesterolemia 03/07/2020 PVD (peripheral vascular disease) ([facility]) Stroke ([facility]) Past Surgical History: Past Surgical History: Procedure Laterality Date ANKLE SURGERY ARM SURGERY (HISTORICAL) Right COLONOSCOPY ESOPHAGEAL DILATION EYE SURGERY 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 HYSTERECTOMY ORTHOPEDIC SURGERY THROMBECTOMY Right 04/06/2024 RLE mechanical thrombectomy (Krzysztof) Admission Diagnosis: Patient Active Problem List Diagnosis Date Noted Aspiration pneumonitis ([facility]/HCC) ([facility]) 08/03/2024 Visual disturbance, subjective 07/06/2024 Retinal detachment, right 07/05/2024 Vision loss of right eye 07/05/2024 Acute venous embolism and thrombosis of deep vessels of proximal lower extremity ([facility]) 04/14/2024 Peripheral arterial disease ([facility]) 04/03/2024 Immunodeficiency due to conditions classified elsewhere ([facility]) 07/27/2023 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 ([facility]) 07/27/2023 Bilateral pneumonia 06/16/2022 COVID-19 06/16/2022 Hypothyroidism 06/16/2022 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 Cellulitis 05/18/2022 Nicotine use disorder 05/18/2022 Acute venous embolism and thrombosis of deep vessels of proximal end of right lower extremity (HCC) 04/19/2024 Atrial fibrillation, unspecified type ([facility]) 04/19/2024 Irritable bowel syndrome with diarrhea 03/07/2020 Microscopic hematuria 03/07/2020 Left retinal detachment 03/07/2020 Hyperglycemia 03/07/2020 Osteopenia of left femoral neck 03/07/2020 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 03/07/2020 Seasonal allergies 03/07/2020 Chronic renal insufficiency, stage III (moderate) ([facility]) 03/07/2020 Major depression, single episode, in complete remission ([facility]) 03/07/2020 Gastroesophageal reflux disease without esophagitis 03/07/2020 Essential hypertension 03/07/2020 Pure hypercholesterolemia 03/07/2020 Overweight 03/07/2020 Psoriasis 03/07/2020 History of cerebrovascular accident 03/07/2020 Atrial fibrillation (HCC) 03/07/2020 Chronic obstructive pulmonary disease ([facility]) 03/07/2020 Finger osteomyelitis, right ([facility]) 03/06/2020 Medical Precautions: Enhanced Contact Proper PPE donned/doffed in accordance with facility standards. Fall Risk: Nugent Fall Risk Score: 75 (Medium Risk) Nugent Fall Risk Score: 75 (High Risk) Precautions/Restrictions: Other Position/Activity Restriction: IV, vitrectomy OD Family/Caregiver Present: none Overall Cognitive Status: while pt has some confusion b\\c loss of vision and new environment, pt functionally WFL Vision: pt has no vision at all currently. 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 Goes to therapy and ambulates with FWW. Likes to be as active as possible--is limited primarily by vision--which does necessitate assist with ADLs. Prior Level of Function Prior Level of ADL Function: Required Assist Prior Level of Mobility: Required Assist; Device: Front wheeled walker Prior Level of Transfers: Required Assist Objective Lower Extremity Assessment AROM: WFL UE ROM WFL--R shldr flex approx 140 actively (note R superior shldr scar) Strength: Hip extn good- oliva, Hip ABD fair+, knee extn 4/5, ankles 4/4 oliva--no significant R vs. L difference in strength Sensation: identifies touch oliva LEs Balance: sitting good-, standing min of 1 (hampered by decreased vision) Bed Mobility: Supine to sit: Min Assist Rolling to right: Min Assist Scooting: Supervision Transfers Sit to stand: Min Assist--min with PT in front and to FWW Stand to sit: Min Assist (pt did not reach for chair) Ambulation Ambulation 1 Assistive device(s) used: Front wheeled walker Assist level: Min Assist Distance (ft): 20 Quality of gait: step length approx 8"--pt requires full verbal cues for gait, PT assist physically with turning of FWW Fairly strong cough-no expectoration noted. Outcome Measures AM-PAC How much HELP from another person do you currently need Turning from your back to your side while in a flat bed without using bedrails?: A Little Moving from lying on your back to sitting on the side of a flat bed without using bedrails?: A Little Moving to and from a bed to a chair (including a wheelchair)?: A Little Standing up from a chair using your arms (wheelchair or bedside chair)?: A Little Walking in a hospital room?: A Little Stair climbing assessed?: No AM-PAC Inpatient Mobility Raw Score (No Stairs) : 15 [facility] Score: Walked 10 steps or more (i.e. walked to restroom) Plan Pt would benefit from skilled acute PT services to address Strengthening, ROM, Gait Training, Balance Training, Functional Mobility Training, Home Management Training, and Patient/Caregiver Training. Frequency: 3x/week for 2 weeks if admitted Barriers: Impaired balance, Impaired vision, and Skin Care Safety/Education Safety Safety Devices in place: call light within reach, left in chair, and nurse notified Restraints: No Education Ensure assist for mobility; proper head positioning Goals Patient Stated Goal: keep getting up, get back to [place]. Encounter Problems Encounter Problems (Active) Balance Patient will maintain static standing balance for 3 minutes with supervision in order to demonstrate decreased risk of falling. Start: 08/06/24 Expected End: 08/20/24 Mobility Patient will ambulate 75 feet with min assist and device in order to improve safety and independence with mobility. Start: 08/06/24 Expected End: 08/20/24 Will need assist due to vision Transfers Patient will perform bed mobility with supervision in order to improve independence and prepare for out of bed mobility. Start: 08/06/24 Expected End: 08/20/24 Patient will complete sit to stand transfer with supervision to device in order to improve safety and prepare for out of bed mobility. Start: 08/06/24 Expected End: 08/20/24 Therapy Time Individual Co-Treatment Co-Evaluation Time In 1001 Time Out 1024 Minutes 23 Jayla Steve PT Patient's Physical Therapy Plan of Care supervision is transferred to a [facility] Therapy Services Physical Therapist. Goals and/or treatment plan was established in collaboration with patient/family/other representatives. Hospitalist Progress Note 08/05/2024 Subjective: Admit Date: 08/03/2024 PCP: Jared Evans MD Room#: N5-548/N5-548 A BRIEF HOSPITAL COURSE: Mel is a 83 y.o. female with past medical history below who presents with chief complaint listed above.Patient is an 83 y/o female who presented to [place] ER early this AM from local [place] for vomiting and diarrhea. Patient reported she vomited a "large amount" early this AM. She didn't realized she had a BM until the nurses checked on her and she was incontinent of stool. Patient with recent hospitalization for acute angle closure glaucoma. Had surgery on the eye 1 week ago. Spoke with the daughter and she is to provide correct list of eye drops for the patient. Patient states she now feels fine. She denies abdominal pain or nausea. No SOB or CP, she has minimal cough. She was started on ABX for concern of aspiration. Interval History: 08/04: She states she is feeling better. No new complaints. No overnight issues. Case and plan discussed with patient and bedside nurse. All questions answered. 08/05: Patient reports symptomatic improvement. No new complaints. Continues to have cough but improving. Adult diet Clear liquid 24HR INTAKE/OUTPUT: Intake/Output Summary (Last 24 hours) at 08/05/2024 1255 Last data filed at 08/05/2024 0900 Gross per 24 hour Intake 2209.99 ml Output -- Net 2209.99 ml Past Medical History: Past Medical History: Diagnosis Date Arrhythmia PAF Asthma Chronic kidney disease COPD (chronic obstructive pulmonary disease) (HCC) DVT (deep venous thrombosis) (HCC) Essential hypertension 03/07/2020 GERD (gastroesophageal reflux disease) Hiatal hernia IBS (irritable bowel syndrome) Pure hypercholesterolemia 03/07/2020 PVD (peripheral vascular disease) (HCC) Stroke (HCC) LABS: CBC: Recent Labs 08/03/24 0251 08/04/24 0447 08/05/24 0358 WBC 9.1 5.6 6.5 RBC 4.65 3.88 3.78* HGB 12.1 10.0* 9.9* HCT 38.7 33.0* 31.9* MCV 83.2 85.1 84.4 RDW 19.4* 19.3* 19.2* PLT 303 280 242 BMP: Recent Labs 08/03/24 1421 08/04/24 0447 08/05/24 0358 NA 138 139 134* K 4.7 3.9 3.8 CL 105 112* 108* CO2 27 21* 21* BUN 33* 26* 13 CREATININE 1.18* 1.13* 0.89 GLUCOSE 100 153* 85 CALCIUM 8.5* 8.2* 8.1* ANIONGAP 6 6 5 LIVER PROFILE: Recent Labs 08/03/24 0251 08/04/24 0447 08/05/24 0358 AST 36* 25 24 ALT 26 26 27 BILITOT 0.7 0.5 0.6 ALKPHOS 82 68 74 PROT 6.7 5.2* 5.2* PT/INR: No results for input(s): "PROTIME", "INR" in the last 72 hours. CARDIAC ENZYMES: No results for input(s): "TROPONINI" in the last 72 hours. Procalcitonin: No results found for: "PROCAL" COVID-19 PCR: No results for input(s): "COVID19" in the last 72 hours. Objective: Vitals: BP 158/74 Pulse 78 Temp 36.2 C (97.1 F) (Temporal) Resp 16 Ht 5' 3.78" (1.62 m) Wt 165 lb 5.5 oz (75 kg) LMP (LMP Unknown) SpO2 93% BMI 28.58 kg/m Pulse Ox: SpO2 Av % Min: 93 % Max: 95 % Supplemental O2: Physical Exam Vitals reviewed. Constitutional: General: She is not in acute distress. Comments: Blind Cardiovascular: Rate and Rhythm: Normal rate and regular rhythm. Pulmonary: Effort: Pulmonary effort is normal. Breath sounds: Normal breath sounds. Abdominal: General: Bowel sounds are normal. Palpations: Abdomen is soft. Neurological: Mental Status: She is alert. Medications: Scheduled PRN ampicillin-sulbactam, 3,000 mg, IntraVENous, q6h apixaban, 5 mg, Oral, BID atorvastatin, 80 mg, Oral, Nightly atropine, 1 drop, Right Eye, Daily lisinopril, 40 mg, Oral, Daily metoprolol tartrate, 25 mg, Oral, BID WC mometasone-formoterol, 2 puff, Inhalation, BID prednisoLONE acetate, 1 drop, Right Eye, 4x daily timolol, 1 drop, Right Eye, BID tiotropium, 2 puff, Inhalation, Daily PRN medications: acetaminophen OR acetaminophen, erythromycin, ipratropium-albuterol, ondansetron ODT OR ondansetron Continuous sodium chloride, 100 mL/hr, Last Rate: 100 mL/hr (08/05/24 3167) Assessment Data: NA (LOW: 2x CAT1 or independent historian MOD: 3x CAT1 or 1x CAT3 EXTENSIVE: 3x CAT1 and 1x CAT3) 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 Risk: Low risk diagnostic testing or treatment (LOW). Advance Directive: DNR-CCA Anticipated Discharge - Date - 08/06 - Location - Skilled Facility - Pending the following - authorization and bed availability Total time spent (which include face to face and non face to face encounters) : 25 minutes Toxic drug monitoring/narrow therapeutic index drug monitoring : # Drug name : N/A # Route administered : N/A # Method of monitoring : N/A Extended Emergency Contact Information Primary Emergency Contact: José Miguel Castillo/ Fidel Mobile Relation: Mother Secondary Emergency Contact: Damaris Villafana DO NOT CALL-TERMINALLY ILL Mobile Relation: Friend Kayden Tatum MD Division of Hospitalist Medicine [facility] Images from the original note were not included. PHYSICAL THERAPY [facility] Name/MRN: Mel Pop ([id number]) Date: 08/05/2024 PT orders received per Vincent activity/mobility score. Patient currently with Vincent activity/mobility score greater than 2. Per therapy services guidelines, will discharge PT orders. Please place regular PT eval/treat orders if deemed appropriate. Padmaja Wilson PT Hospitalist Progress Note 08/04/2024 Subjective: Admit Date: 08/03/2024 PCP: Jared Evans MD Room#: N5-048/[id number] A BRIEF HOSPITAL COURSE: Mel is a 83 y.o. female with past medical history below who presents with chief complaint listed above.Patient is an 83 y/o female who presented to [place] ER early this AM from local [place] for vomiting and diarrhea. Patient reported she vomited a "large amount" early this AM. She didn't realized she had a BM until the nurses checked on her and she was incontinent of stool. Patient with recent hospitalization for acute angle closure glaucoma. Had surgery on the eye 1 week ago. Spoke with the daughter and she is to provide correct list of eye drops for the patient. Patient states she now feels fine. She denies abdominal pain or nausea. No SOB or CP, she has minimal cough. She was started on ABX for concern of aspiration. Interval History: 08/04: She states she is feeling better. No new complaints. No overnight issues. Case and plan discussed with patient and bedside nurse. All questions answered. Adult diet Clear liquid 24HR INTAKE/OUTPUT: Intake/Output Summary (Last 24 hours) at 08/04/2024 1245 Last data filed at 08/04/2024 0626 Gross per 24 hour Intake 2181.68 ml Output -- Net 2181.68 ml Past Medical History: Past Medical History: Diagnosis Date Arrhythmia PAF Asthma Chronic kidney disease COPD (chronic obstructive pulmonary disease) ([facility]) DVT (deep venous thrombosis) ([facility]) Essential hypertension 03/07/2020 GERD (gastroesophageal reflux disease) Hiatal hernia IBS (irritable bowel syndrome) Pure hypercholesterolemia 03/07/2020 PVD (peripheral vascular disease) ([facility]) Stroke ([facility]) LABS: CBC: Recent Labs 08/03/24 0251 08/04/24 0447 WBC 9.1 5.6 RBC 4.65 3.88 HGB 12.1 10.0* HCT 38.7 33.0* MCV 83.2 85.1 RDW 19.4* 19.3* PLT 303 280 BMP: Recent Labs 08/03/24 0251 08/03/24 0405 08/03/24 1421 08/04/24 0447 NA 139 138 138 139 K 5.9* 4.3 4.7 3.9 CL 109* -- 105 112* CO2 21* -- 27 21* BUN 34* -- 33* 26* CREATININE 1.30* 1.3 1.18* 1.13* GLUCOSE 103 -- 100 153* CALCIUM 9.0 -- 8.5* 8.2* ANIONGAP 9 -- 6 6 LIVER PROFILE: Recent Labs 08/03/24 0251 08/04/24 0447 AST 36* 25 ALT 26 26 BILITOT 0.7 0.5 ALKPHOS 82 68 PROT 6.7 5.2* PT/INR: No results for input(s): "PROTIME", "INR" in the last 72 hours. CARDIAC ENZYMES: No results for input(s): "TROPONINI" in the last 72 hours. Procalcitonin: No results found for: "PROCAL" COVID-19 PCR: No results for input(s): "COVID19" in the last 72 hours. Objective: Vitals: BP 140/83 (BP Location: Left arm, Patient Position: Lying) Pulse 63 Temp 36.8 C (98.3 F) (Temporal) Resp 16 Ht 5' 3.78" (1.62 m) Wt 165 lb 5.5 oz (75 kg) LMP (LMP Unknown) SpO2 96% BMI 28.58 kg/m Pulse Ox: SpO2 Av % Min: 96 % Max: 96 % Supplemental O2: Physical Exam Vitals reviewed. Constitutional: General: She is not in acute distress. Comments: Blind Cardiovascular: Rate and Rhythm: Normal rate and regular rhythm. Pulmonary: Effort: Pulmonary effort is normal. Breath sounds: Normal breath sounds. Abdominal: General: Bowel sounds are normal. Palpations: Abdomen is soft. Neurological: Mental Status: She is alert. Medications: Scheduled PRN ampicillin-sulbactam, 3,000 mg, IntraVENous, q6h apixaban, 5 mg, Oral, BID atorvastatin, 80 mg, Oral, Nightly atropine, 1 drop, Right Eye, Daily lisinopril, 40 mg, Oral, Daily metoprolol tartrate, 25 mg, Oral, BID WC mometasone-formoterol, 2 puff, Inhalation, BID prednisoLONE acetate, 1 drop, Right Eye, 4x daily timolol, 1 drop, Right Eye, BID tiotropium, 2 puff, Inhalation, Daily PRN medications: acetaminophen OR acetaminophen, erythromycin, ipratropium-albuterol, ondansetron ODT OR ondansetron Continuous sodium chloride, 100 mL/hr, Last Rate: 100 mL/hr (08/04/24 1211) Assessment Data: NA (LOW: 2x CAT1 or independent historian MOD: 3x CAT1 or 1x CAT3 EXTENSIVE: 3x CAT1 and 1x CAT3) 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 Risk: Low risk diagnostic testing or treatment (LOW). Advance Directive: DNR-CCA Anticipated Discharge - Date - 08/05 - Location - Skilled Facility - Pending the following - improvement in creatinine Total time spent (which include face to face and non face to face encounters) : 25 minutes Toxic drug monitoring/narrow therapeutic index drug monitoring : # Drug name : N/A # Route administered : N/A # Method of monitoring : N/A Extended Emergency Contact Information Primary Emergency Contact: Maxwell Castilloweston/ Fidel Mobile Relation: Mother Secondary Emergency Contact: Damaris Villafana DO NOT CALL-TERMINALLY ILL Mobile Relation: Friend Kayden Tatum MD Division of Hospitalist Medicine [facility] documented in this encounter [facility] 08-15-2024 Plan of care note Problem: Knowledge Deficit Goal: Patient/family/caregiver demonstrates understanding of disease process, treatment plan, medications, and discharge instructions Outcome: Progressing Problem: Potential for Compromised Skin Integrity Goal: Skin Integrity is Maintained or Improved Outcome: Progressing Goal: Nutritional status is improving Outcome: Progressing Problem: Urinary Incontinence Goal: Perineal skin integrity is maintained or improved Outcome: Progressing Problem: Problem Interventions Goal: Assess Nutritional Intake Outcome: Progressing Problem: Potential for Falls Goal: I will remain free of falls Outcome: Progressing Problem: Discharge Barriers Goal: My discharge needs are met Outcome: Progressing [facility] 08-15-2024 Note Formatting of this n ote might be different from the original. Authorization is pending with [employer]. Ref# [id number] to be DC'd to [facility]. Dtr Fidel Sharma. CM to follow. [facility] 08-15-2024 Note Formatting of this n ote might be different from the original. [facility] Ref# [id number] to be DC'd to [facility]. Dtr Fidel Sharma. CM to follow. [facility] 08-15-2024 Note Patient progressing toward all goals. [facility] 08-15-2024 Plan of care note Patient progressing toward all goals. [facility] 08-14-2024 Plan of care note Problem: Knowledge Deficit Goal: Patient/family/caregiver demonstrates understanding of disease process, treatment plan, medications, and discharge instructions Outcome: Progressing Problem: Potential for Compromised Skin Integrity Goal: Skin Integrity is Maintained or Improved Outcome: Progressing Goal: Nutritional status is improving Outcome: Progressing Problem: Urinary Incontinence Goal: Perineal skin integrity is maintained or improved Outcome: Progressing Problem: Problem Interventions Goal: Assess Nutritional Intake Outcome: Progressing Problem: Potential for Falls Goal: I will remain free of falls Outcome: Progressing Problem: Discharge Barriers Goal: My discharge needs are met Outcome: Progressing [facility] 08-14-2024 Hospital Discharge instructions Devika Escobar MD - 08/14/2024 1:30 PM EST As tolerated with PT/OT Devika Escobar MD - 08/14/2024 1:30 PM EST Regular diet STINE Perez RN - 08/06/2024 5:31 PM EST Images from the original note were not included. Continuity of Care Form Patient Name: Mel Pop : 1940 Admit date: 08/03/2024 Discharge date: Code Status Order: DNR-CCA Advance Directives: N Admitting Physician: Martha Parrish MD PCP: Jared Evans MD Discharging Nurse: Cici Perez Discharging Hospital Unit/Room#: N5-548/N5-548 A Discharging Unit Emergency Contact: Extended Emergency Contact Information Primary Emergency Contact: Maxwell Castilloweston/ Fidel Mobile Relation: Mother Secondary Emergency Contact: VasughassanDamaris NOT CALL-TERMINALLY ILL Mobile Relation: Friend Past Surgical History: Past Surgical History: Procedure Laterality Date ANKLE SURGERY ARM SURGERY (HISTORICAL) Right COLONOSCOPY ESOPHAGEAL DILATION EYE SURGERY 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 HYSTERECTOMY ORTHOPEDIC SURGERY THROMBECTOMY Right 04/06/2024 RLE mechanical thrombectomy (Krzysztof) Immunization History: Immunization History Administered Date(s) Administered Influenza, High Dose Seasonal, Preservative Free 06/29/2013 Influenza, High-dose Seasonal, Quadrivalent, Preservative Free 05/19/2021 Pneumococcal Conjugate PCV 13 02/15/2019 Tdap 02/15/2019 Active Problems: Medical Problems Problem List * (Principal) Aspiration pneumonitis ([facility]) (HCC) Bilateral pneumonia Cellulitis COVID-19 Hypothyroidism 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) Overview Signed 07/27/2023 2:25 PM by Kourtney Haque MA Noted by CRISTINA Keita MD last documented on [id number] Ischemic leg Nicotine use disorder 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 ([facility]) Overview Signed 07/27/2023 2:25 PM by Kourtney Haque MA Noted by CRISTINA Keita MD last documented on [id number] 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) Peripheral arterial disease (HCC) Acute venous embolism and thrombosis of deep vessels of proximal lower extremity (HCC) Retinal detachment, right Vision loss of right eye Visual disturbance, subjective Finger osteomyelitis, right (HCC) Irritable bowel syndrome with diarrhea Microscopic hematuria Left retinal detachment Hyperglycemia Osteopenia of left femoral neck 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 Seasonal allergies Chronic renal insufficiency, stage III (moderate) (HCC) Major depression, single episode, in complete remission (HCC) Gastroesophageal reflux disease without esophagitis Essential hypertension Pure hypercholesterolemia Overweight Psoriasis History of cerebrovascular accident Atrial fibrillation (HCC) Chronic obstructive pulmonary disease (HCC) Acute venous embolism and thrombosis of deep vessels of proximal end of right lower extremity (HCC) Atrial fibrillation, unspecified type ([facility]) Isolation/Infection: Enhanced Contact Norovirus Nurse Assessment: Last Vital Signs: BP 123/73 (BP Location: Left arm, Patient Position: Sitting) Pulse 63 Temp 36.2 C (97.1 F) (Temporal) Resp 16 Ht 5' 3.78" (1.62 m) Wt 165 lb 5.5 oz (75 kg) LMP (LMP Unknown) SpO2 92% BMI 28.58 kg/m Last documented pain score (0-10 scale): Last Weight: Wt Readings from Last 1 Encounters: 08/03/24 165 lb 5.5 oz (75 kg) Mental Status: HECTOR Patient Mental Status: oriented and alert IV Access: HECTOR IV Access: None Nursing Mobility/ADLs: Walking Total assistance Transfer Minimal assistance Bathing Minimal assistance Dressing Minimal assistance Toileting Total assistance Feeding Minimal assistance Lip Cutter Minimal assistance Med Delivery yes Wound Care Documentation and Therapy: Wound/Incision 04/06/24 Incision Knee Right;Posterior (Active) Number of days: 122 Elimination: Continence: Bowel: yes Bladder: yes Urinary Catheter: None Colostomy/Ileostomy/Ileal Conduit: None Date of Last BM: 08/15/2024 No intake or output data in the 24 hours ending 08/06/24 1731 I/O last 3 completed shifts: In: 2210 (29.5 mL/kg) [P.O.:600; I.V.:1610 (21.5 mL/kg)] Out: - (0 mL/kg) Weight: 75 kg Safety Concerns: at risk for falls Impairments/Disabilities: vision Nutrition Therapy: Current Nutrition Therapy: Oral diet: general Routes of Feeding: oral Liquids: thin liquids Daily Fluid Restriction: no Last Modified Barium Swallow with Video (Video Swallowing Test): not done Treatments at the Time of Hospital Discharge: Respiratory Treatments: inhalers Oxygen Therapy: is not on home oxygen therapy. Ventilator: No ventilator support Rehab Therapies: physical therapy and occupational therapy Weight Bearing Status/Restrictions: no restriction Other Medical Equipment (for information only, NOT a DME order): none Other Treatments: none Patient's personal belongings (please select all that are sent with patient): [place] RN SIGNATURE: MANAGEMENT/SOCIAL WORK SECTION Inpatient Status Date: 08/03/2024 [facility] Address: [address] [place] [address] Fax: Dialysis Facility (if applicable) Name: NA Address: Dialysis Schedule: Phone: Fax: Soldering Inspector/Grinding Wheel Facer signature: ICIAN SECTION Name: Mel Pop Prognosis: good Condition at Discharge: stable Rehab Potential (if transferring to Rehab): good Recommended Labs or Other Treatments After Discharge: none The individual is being admitted to a nursing facility directly from an [facility] or a unit of a [facility] that is not operated by or licensed by [facility] under section 5119.14 or 5160-3-15.1 5 The individual requires the level of services provided by a nursing facility for the condition for which he or she was treated in the hospital and, Physician Certification: I certify the above information and transfer of Mel Pop is necessary for the continuing treatment of the diagnosis listed and that she requires penitentiary facility for less than 30 days. Update Admission H&P: No change in H&P PHYSICIAN SIGNATURE: documented in this encounter [facility] 08-14-2024 Note Formatting of this n ote might be different from the original. Pt has Been accepted to [facility]. Need PT/OT to see so auth to be started. Therapy to see today was sent. Called and spoke with Dtbraxton Verdin. SNF tasked w update. CM to follow. [facility] 08-14-2024 Note Formatting of this n ote might be different from the original. Pt has Been accepted to [facility]. Need PT/OT to see so auth to be started. Therapy to see today was sent. Called and spoke with Dtbraxton Verdin. SNF tasked w update. CM to follow. [facility] 08-13-2024 Plan of care note Problem: Knowledge Deficit Goal: Patient/family/caregiver demonstrates understanding of disease process, treatment plan, medications, and discharge instructions Outcome: Progressing Problem: Potential for Compromised Skin Integrity Goal: Skin Integrity is Maintained or Improved Outcome: Progressing Goal: Nutritional status is improving Outcome: Progressing Problem: Urinary Incontinence Goal: Perineal skin integrity is maintained or improved Outcome: Progressing Problem: Problem Interventions Goal: Assess Nutritional Intake Outcome: Progressing Problem: Potential for Falls Goal: I will remain free of falls Outcome: Progressing Problem: Discharge Barriers Goal: My discharge needs are met Outcome: Progressing [facility] 08-13-2024 Note Formatting of this n ote might be different from the original. Referral placed to SNF- [facility] via [facility] per TCC request. Await review and response regarding ability to accept. TCC notified. Electronically signed by Christine Morataya [facility], 08-13-2024 at 3:00 PM [facility] 08-13-2024 Note Formatting of this n ote might be different from the original. Referral placed to SNF- [facility] via [facility] per TCC request. Await review and response regarding ability to accept. TCC notified. Electronically signed by Christine Morataya [facility], 08-13-2024 at 3:00 PM [facility] 08-13-2024 Note Referral placed to S - [facility] via [facility]port per TCC request. Await review and response regarding ability to accept. TCC notified. Electronically signed by Christine Morataya [facility], 08-13-2024 at 3:00 PM [facility] 08-13-2024 Note Formatting of this n ote might be different from the original. Called dgt to talk about dc planning. Dgt continues to tour SNFs this evening, since she was sick this weekend. Provided me with two more SNF choices. [facility]. Tasked [facility] to create these referrals. CM to follow. [facility] 08-13-2024 Note Formatting of this n ote might be different from the original. Called dgt to talk about dc planning. Dgt continues to tour SNFs this evening, since she was sick this weekend. Provided me with two more SNF choices. [facility]. Tasked [facility] to create these referrals. CM to follow. [facility] 08-13-2024 Plan of care note Problem: Knowledge Deficit Goal: Patient/family/caregiver demonstrates understanding of disease process, treatment plan, medications, and discharge instructions Outcome: Progressing Problem: Potential for Compromised Skin Integrity Goal: Skin Integrity is Maintained or Improved Outcome: Progressing Goal: Nutritional status is improving Outcome: Progressing Problem: Urinary Incontinence Goal: Perineal skin integrity is maintained or improved Outcome: Progressing Problem: Problem Interventions Goal: Assess Nutritional Intake Outcome: Progressing Problem: Potential for Falls Goal: I will remain free of falls Outcome: Progressing Problem: Discharge Barriers Goal: My discharge needs are met Outcome: Progressing [facility] 08-12-2024 Note Problem: Knowledge D eficit Goal: Patient/family/caregiver demonstrates understanding of disease process, treatment plan, medications, and discharge instructions Outcome: Progressing [facility] 08-12-2024 Plan of care note Problem: Knowledge Deficit Goal: Patient/family/caregiver demonstrates understanding of disease process, treatment plan, medications, and discharge instructions Outcome: Progressing [facility] 08-12-2024 Plan of care note Problem: Knowledge Deficit Goal: Patient/family/caregiver demonstrates understanding of disease process, treatment plan, medications, and discharge instructions Outcome: Progressing Problem: Potential for Compromised Skin Integrity Goal: Skin Integrity is Maintained or Improved Outcome: Progressing Goal: Nutritional status is improving Outcome: Progressing Problem: Urinary Incontinence Goal: Perineal skin integrity is maintained or improved Outcome: Progressing Problem: Problem Interventions Goal: Assess Nutritional Intake Outcome: Progressing Problem: Potential for Falls Goal: I will remain free of falls Outcome: Progressing Problem: Discharge Barriers Goal: My discharge needs are met Outcome: Progressing [facility] 08-11-2024 Plan of care note Problem: Knowledge Deficit Goal: Patient/family/caregiver demonstrates understanding of disease process, treatment plan, medications, and discharge instructions Outcome: Progressing Flowsheets (Taken 08/11/2024 1030) Patient/family/caregiver demonstrates understanding of disease process, treatment plan, medications, and discharge instructions: Complete learning assessment and assess knowledge base Problem: Potential for Compromised Skin Integrity Goal: Skin Integrity is Maintained or Improved Outcome: Progressing Goal: Nutritional status is improving Outcome: Progressing Problem: Urinary Incontinence Goal: Perineal skin integrity is maintained or improved Outcome: Progressing Problem: Problem Interventions Goal: Assess Nutritional Intake Outcome: Progressing Problem: Potential for Falls Goal: I will remain free of falls Outcome: Progressing Note: safety Problem: Discharge Barriers Goal: My discharge needs are met Outcome: Progressing [facility] 08-11-2024 Note Formatting of this n ote might be different from the original. CM noted DC orders in place, Dgt touring facilities over the weekend. [facility] pending acceptance, updates sent via careport. [facility] 08-11-2024 Note Formatting of this n ote might be different from the original. CM noted DC orders in place, Dgt touring facilities over the weekend. [place]. [facility] pending acceptance, updates sent via careport. [facility] 08-11-2024 Plan of care note Problem: Knowledge Deficit Goal: Patient/family/caregiver demonstrates understanding of disease process, treatment plan, medications, and discharge instructions Outcome: Progressing Problem: Potential for Compromised Skin Integrity Goal: Skin Integrity is Maintained or Improved Outcome: Progressing Goal: Nutritional status is improving Outcome: Progressing Problem: Urinary Incontinence Goal: Perineal skin integrity is maintained or improved Outcome: Progressing Problem: Problem Interventions Goal: Assess Nutritional Intake Outcome: Progressing [facility] 08-10-2024 Note Formatting of this n ote might be different from the original. Referral placed to [facility] via [facility] per TCC request. Await review and response regarding ability to accept. TCC notified. Electronically signed by Christine Morataya [facility], 08-10-2024 at 9:23AM [facility] 08-10-2024 Note Formatting of this n ote might be different from the original. Referral placed to [facility] via [facility] per TCC request. Await review and response regarding ability to accept. TCC notified. Electronically signed by Christine Morataya CMA, 08-10-2024 at 9:23AM [facility] 08-10-2024 Note Referral placed to [facility] via [facility]port per TCC request. Await review and response regarding ability to accept. TCC notified. Electronically signed by Christine Morataya [facility], 08-10-2024 at 9:23AM [facility] 08-10-2024 Note Formatting of this n ote might be different from the original. Pt was to be DC to [facility]. Found out pt and dtr didn't want to return to [facility]. SNF was made aware. On adm spoke with Dtr Fidel, ok to return. Called Dtr this am, after speaking with pt and things that happened and didn't happen. Fidel requesting a referral to be made to [facility]. [facility] tasked to send. A SNF list was emailed to Fidel. [email or web address]. She will tour facilities over weekend. CM to follow. [facility] 08-10-2024 Note Formatting of this n ote might be different from the original. Pt was to be DC to [facility]. Found out pt and dtr didn't want to return to [facility]. SNF was made aware. On adm spoke with Dtr Fidel, ok to return. Called Dtr this am, after speaking with pt and things that happened and didn't happen. Fidel requesting a referral to be made to [facility]. DIRECTOR OF WEB MARKETING tasked to send. A SNF list was emailed to Fidel. [email or web address]. She will tour facilities over weekend. CM to follow. [facility] 08-10-2024 Plan of care note Problem: Knowledge Deficit Goal: Patient/family/caregiver demonstrates understanding of disease process, treatment plan, medications, and discharge instructions Outcome: Progressing Problem: Potential for Compromised Skin Integrity Goal: Skin Integrity is Maintained or Improved Outcome: Progressing Goal: Nutritional status is improving Outcome: Progressing Problem: Urinary Incontinence Goal: Perineal skin integrity is maintained or improved Outcome: Progressing Problem: Problem Interventions Goal: Assess Nutritional Intake Outcome: Progressing [facility] 08-09-2024 Note Formatting of this n ote might be different from the original. Discharge summary and med list sent via Careport to [facility] per TCC request. [facility] 08-09-2024 Note Formatting of this n ote might be different from the original. Discharge summary and med list sent via Careport to [facility] per TCC request. [facility] 08-09-2024 Note Discharge summary an d med list sent via Careport to [facility] per TCC request. [facility] 08-09-2024 Note Formatting of this n ote might be different from the original. Auth received. Patient with active dc orders. Transportation arranged through [employer] with estimated leaf size picker time of 1930. VM left with daughter Fidel along with 3N phone number to call with questions. Bedside RN aware. Facility updated. [facility] supervisor sewing room sent orders to [facility]. [facility] 08-09-2024 Note Formatting of this n ote might be different from the original. Auth received. Patient with active dc orders. Transportation arranged through [employer] with estimated leaf size picker time of 1930. VM left with daughter Fidel along with 3N phone number to call with questions. Bedside RN aware. Facility updated. [facility] supervisor sewing room sent orders to [facility]. [facility] 08-09-2024 Note Formatting of this n ote might be different from the original. biofuels technology manager was asked to assist with setting up transport back to [facility] this evening. pocketed spring assembler had already done so, but this clinique counter manager called daughter to inform her of discharge and transport set up. Daughter did not wish patient to return to the SNF. Air Shovel Operator told her that patient is medically stable for dc and that she should continue the discussion with the social security benefits interviewer and research administrator at The snf, and also get options from [employer]. Coordinator was to message the snf about return this evening via [employer]. [facility] 08-09-2024 Note Formatting of this n ote might be different from the original. biofuels technology manager was asked to assist with setting up transport back to [facility] this evening. pocketed spring assembler had already done so, but this clinique counter manager called daughter to inform her of discharge and transport set up. Daughter did not wish patient to return to the SNF. Air Shovel Operator told her that patient is medically stable for dc and that she should continue the discussion with the social security benefits interviewer and research administrator at The snf, and also get options from [employer]. Coordinator was to message the snf about return this evening via [employer]. [facility] 08-09-2024 Note [facility] 08-09-2024 Hospital course Narrative Hospitalist Discharge Summary Mel Pop : 1940 Admit date: 08/03/2024 Discharge date: 08/09/2024 Admitting Physician: Martha Parrish MD Primary Care Physician: Jared Evans MD Visit Status: Observation Code Status: DNR-CCA Acute, acute on chronic, unstable/uncontrolled chronic problems/diagnoses: Aspiration pneumonitis Vomiting and diarrhea 2/2 norovirus LORENZA on CKD 3 Stable chronic problems affecting care, new non-acute diagnoses: Glaucoma and detached retina Afib COPD PAD HTN DVT 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 female with past medical history below who presents with chief complaint listed above.Patient is an 83 y/o female who presented to [facility] early this AM from local [place] for vomiting and diarrhea. Patient reported she vomited a "large amount" early this AM. She didn't realized she had a BM until the nurses checked on her and she was incontinent of stool. Patient with recent hospitalization for acute angle closure glaucoma. Had surgery on the eye 1 week ago. Spoke with the daughter and she is to provide correct list of eye drops for the patient. Patient states she now feels fine. She denies abdominal pain or nausea. No SOB or CP, she has minimal cough. She was started on ABX for concern of aspiration and completed 5 day course of Unasyn on 08/07. GI panel positive for norovirus. Treated symptomatically. Pt discharged delayed awaiting auth to return to SNF. Auth obtained on 08/09 and pt discharged in stable and improved condition. See discharge diagnoses list above and medication adjustments below in med rec.The patient is discharged in improved and stable condition. Consults: IP CONSULT TO DIETITIAN Discharge Instructions: Diet: Dietary Orders (From admission, onward) Start Ordered 08/06/24 1345 Adult diet Regular Diet effective now Question: Diet type Answer: Regular 08/06/24 1344 Activity: as tolerated Recommended Outpatient Tests: Disposition: Patient discharged in stable condition to SNF. Greater than 50 minutes spent discharging the patient and coming up with patient discharge plan. Vitals: BP (!) 156/104 Pulse 75 Temp 36.7 C (98 F) (Temporal) Resp 16 Ht 5' 3.78" (1.62 m) Wt 165 lb 5.5 oz (75 kg) LMP (LMP Unknown) SpO2 96% BMI 28.58 kg/m Pulse Ox: SpO2 Av % Min: 94 % Max: 96 % Supplemental O2: See daily progress note for PE LABS: No results for input(s): "NA", "K", "CL", "CO2", "BUN", "CREATININE", "GLUCOSE", "CALCIUM" in the last 72 hours. No results for input(s): "WBC", "RBC", "HGB", "HCT", "MCV", "MCH", "MCHC", "RDW", "PLT", "MPV" in the last 72 hours. Discharge Medications: Medication List START taking these medications apixaban 5 MG tablet Commonly known as: Eliquis Take 1 tablet (5 mg) by mouth 2 times daily. CONTINUE taking these medications ascorbic acid 500 MG tablet Commonly known as: Vitamin C atorvastatin 80 MG tablet Commonly known as: Lipitor Take 1 tablet (80 mg) by mouth daily. lisinopril 40 MG tablet metoprolol tartrate 25 MG tablet Commonly known as: Lopressor prednisoLONE acetate 1 % ophthalmic suspension Commonly known as: Pred-Forte Administer 1 drop into the right eye every 4 hours. timolol 0.5 % ophthalmic solution Commonly known as: Timoptic Administer 1 drop into the right eye 2 times daily. Trelegy Ellipta 100-62.5-25 MCG/ACT aerosol powder Generic drug: Cazsbsallvn-Demzmlrov-Szjirb STOP taking these medications enoxaparin 80 MG/0.8ML solution prefilled syringe Commonly known as: Lovenox Where to Get Your Medications Information about where to get these medications is not yet available Ask your nurse or doctor about these medications apixaban 5 MG tablet atorvastatin 80 MG tablet Recommended Follow-up: No follow-up provider specified. Complexity of Follow up: [] Moderate Complexity: follow up within 7-14 calendar days (13142) [x] Severe Complexity: follow up within 7 calendar days (13969) Follow up Testing, Pending results or Referrals at Transitional Care Visit: [x] yes [] no Instructions to MA: Please call patient on day after discharge (must document patient contacted within 2 business days of discharge). Follow up questions for MA: 1. Did you get medications filled and taking them as instructed from discharge? 2. Are you following your discharge instructions from your hospital stay? 3. Please confirm patient is scheduled for a follow up appointment within the above time frame. Signed: Kael Anderson DO Division of Hospitalist Medicine [facility] [employer] 08/09/2024, 4:23 PM documented in this encounter [facility] 08-09-2024 Note Formatting of this n ote might be different from the original. Updated PT/OT notes placed to [facility] via [facility]port per TCC request. Await review and response regarding ability to accept. TCC notified. [facility] 08-09-2024 Note Formatting of this n ote might be different from the original. Updated PT/OT notes placed to SNF [facility] via [facility]port per TCC request. Await review and response regarding ability to accept. TCC notified. Electronically signed by [facility] Aracelis Gardiner [facility] 08-09-2024 Note Formatting of this n ote might be different from the original. Patient is medically ready for dc. PT/OT both continuing to recommend SNF. [facility] clinique counter manager asked to start auth. Plan to dc back to [facility] pending auth [facility] 08-09-2024 Note Formatting of this n ote might be different from the original. Patient is medically ready for dc. PT/OT both continuing to recommend SNF. [facility] clinique counter manager asked to start auth. Plan to dc back to [facility] pending auth [facility] 08-08-2024 Note Formatting of this n ote might be different from the original. I was off Yesterday, PT note was in from Tuesday. Therapy to see today was sent out to OT Tuesday to see yester. Pt was not seen. I did sent a therapy to see today to PT/OT so an auth can be started. Pt will Be Dc'd to [facility]. CM to follow. [facility] 08-08-2024 Note Formatting of this n ote might be different from the original. I was off Yesterday, PT note was in from Tuesday. Therapy to see today was sent out to OT Tuesday to see yesterday. Pt was not seen. I did sent a therapy to see today to PT/OT so an auth can be started. Pt will Be Dc'd to [facility]. CM to follow. [facility] 08-07-2024 Plan of care note Problem: Knowledge Deficit Goal: Patient/family/caregiver demonstrates understanding of disease process, treatment plan, medications, and discharge instructions Outcome: Progressing Problem: Potential for Compromised Skin Integrity Goal: Skin Integrity is Maintained or Improved Outcome: Progressing Goal: Nutritional status is improving Outcome: Progressing [facility] 08-07-2024 Plan of care note Problem: Knowledge Deficit Goal: Patient/family/caregiver demonstrates understanding of disease process, treatment plan, medications, and discharge instructions Outcome: Progressing Problem: Potential for Compromised Skin Integrity Goal: Skin Integrity is Maintained or Improved Outcome: Progressing Goal: Nutritional status is improving Outcome: Progressing Problem: Urinary Incontinence Goal: Perineal skin integrity is maintained or improved Outcome: Progressing Problem: Problem Interventions Goal: Assess Nutritional Intake Outcome: Progressing [facility] 08-07-2024 Note Formatting of this n ote might be different from the original. Case Management Progress Note: Patient remains on 5N for concern with aspiration 2/2 vomiting. Discharge Plan: Return to [facility]. Therapy eval needed for precert. TCC to assist and follow as needed. [facility] 08-07-2024 Note Formatting of this n ote might be different from the original. Case Management Progress Note: Patient remains on 5N for concern with aspiration 2/2 vomiting. Discharge Plan: Return to [facility]. Therapy eval needed for precert. TCC to assist and follow as needed. [facility] 08-07-2024 Plan of care note Problem: Knowledge Deficit Goal: Patient/family/caregiver demonstrates understanding of disease process, treatment plan, medications, and discharge instructions Outcome: Progressing Problem: Potential for Compromised Skin Integrity Goal: Skin Integrity is Maintained or Improved Outcome: Progressing Goal: Nutritional status is improving Outcome: Progressing Problem: Urinary Incontinence Goal: Perineal skin integrity is maintained or improved Outcome: Progressing Problem: Problem Interventions Goal: Assess Nutritional Intake Outcome: Progressing [facility] 08-06-2024 Plan of care note Problem: Knowledge Deficit Goal: Patient/family/caregiver demonstrates understanding of disease process, treatment plan, medications, and discharge instructions Outcome: Progressing Problem: Potential for Compromised Skin Integrity Goal: Skin Integrity is Maintained or Improved Outcome: Progressing Goal: Nutritional status is improving Outcome: Progressing Problem: Urinary Incontinence Goal: Perineal skin integrity is maintained or improved Outcome: Progressing Problem: Problem Interventions Goal: Assess Nutritional Intake Outcome: Progressing [facility] 08-06-2024 Note Formatting of this n ote might be different from the original. Pt cont's on IV AtBs'. Plan is for pt to return to [facility]. Auth and HECTOR needed prior to DC. CM to follow. [facility] 08-06-2024 Note Formatting of this n ote might be different from the original. Pt cont's on IV AtBs'. Plan is for pt to return to [facility]. Auth and HECTOR needed prior to DC. CM to follow. [facility] 08-06-2024 Note Formatting of this n ote might be different from the original. Per attending pt ready for DC. Pt will return to [facility]. Pt needs PT/OT to start auth Therapy to see put in for alistair so auth can be started. HECTOR will need completed. CM to follow. [facility] 08-06-2024 Note Formatting of this n ote might be different from the original. Per attending pt ready for DC. Pt will return to [facility]. Pt needs PT/OT to start auth Therapy to see put in for alistair so auth can be started. HECTOR will need completed. CM to follow. [facility] 08-06-2024 Consult note Associated Order (s): IP CONSULT TO DIETITIAN Nutrition Assessment Type and Reason for Visit: Initial, Consult (Vincent) Nutrition Recommendations/Plan: Advance CLD as tolerated w/ goal of General. Monitor adequacy of PO for need to initiate ONS. Please document % meal intakes under I/O flowsheet. Monitor nutrition status, intakes, wt trends, labs, and fluid balance. RD will continue to follow. Malnutrition Assessment: Malnutrition Status: At risk for malnutrition (Comment) Context: Acute Illness Findings of the 6 clinical characteristics of malnutrition: Energy Intake: Mild decrease in energy intake (Comment) (CLD x3 days) Weight Loss: No significant weight loss Body Fat Loss: Unable to assess Muscle Mass Loss: Unable to assess Fluid Accumulation: No significant fluid accumulation Flexible Shaft Winder Strength: Not Performed Nutrition Assessment: Pt hx HTN, stroke, COPD, CKD, IBS. Admitted w/ vomiting and diarrhea. +norovirus. Started on abx for concern of aspiration pna. Pt's symptoms have improved during admission. Consuming and tolerating CLD. Medically stable for discharge back to SNF per notes. Estimated Daily Nutrient Needs: Energy Requirements Based On: Kcal/kg Weight Used for Energy Requirements: [place] Weight for Energy Calculation (kg): 54 kg Total Energy Requirements (kcals/day): 7461-0496 Weight Used for Protein Requirements: [place] Weight in Kg Used for Protein Requirements: 54 kg Estimated Total Protein (g/day): 54-65 Estimated Daily Total Fluid (ml/day): per MD Nutrition Related Findings: +BS. No edema. +I&O. Vincent 12 Wound Type: None BMP: Recent Labs 08/04/24 0447 08/05/24 0358 08/05/24 2343 NA 139 134* 139 K 3.9 3.8 3.8 CL 112* 108* 115* CO2 21* 21* 17* BUN 26* 13 9 CREATININE 1.13* 0.89 0.91 GLUCOSE 153* 85 92 CALCIUM 8.2* 8.1* 8.4* HEPATIC: Recent Labs 08/04/247 08/05/24 0358 08/05/24 2343 AST 25 24 21 ALT 26 27 24 BILITOT 0.5 0.6 0.9 ALKPHOS 68 74 72 Lab Results Component Value Date HGBA1C 5.8 (H) 07/05/2024 Current Nutrition Therapies: Adult diet Clear liquid Current Oral Intake Average Meal Intake: 76-100% (CLD) Average Supplements Intake: None Ordered Anthropometric Measures: Height: 162 cm (5' 3.78") Current Body Weight: 74.8 kg (165 lb) (08/03) Weight Source: Bed Scale Usual Body Weight: 66.7 kg (147 lb) (per Epic 05/14; 160# 07/05) % Weight Change (Calculated): 12.2 [place] Body Weight (lbs) (Calculated): 119 lbs [place] Body Weight (Kg) (Calculated): 54 kg BMI (kg/m2) (Calculated): 28.5 Weight Adjustment For: No Adjustment BMI Categories: Overweight (BMI 25.0-29.9) Nutrition Diagnosis: Inadequate oral intake related to altered GI function as evidenced by NPO or clear liquid status due to medical condition Nutrition Interventions: Nutrition Education/Counseling: No recommendation at this time Coordination of Nutrition Care: Continue to monitor while inpatient Goals: Goals: PO intake 50% or greater, by next RD assessment Nutrition Monitoring and Evaluation: Behavioral-Environmental Outcomes: None Identified Food/Nutrient Intake Outcomes: Diet Advancement/Tolerance, Food and Nutrient Intake Physical Signs/Symptoms Outcomes: Biochemical Data, GI Status, Fluid Status or Edema, Nutrition Focused Physical Findings, Skin, Weight Discharge Planning: Too soon to determine Gabriella Michelle RD, LD Contact: [phone] [facility] 08-06-2024 Consult note Associated Order (s): IP CONSULT TO DIETITIAN Nutrition Assessment Type and Reason for Visit: Initial, Consult (Vincent) Nutrition Recommendations/Plan: Advance CLD as tolerated w/ goal of General. Monitor adequacy of PO for need to initiate ONS. Please document % meal intakes under I/O flowsheet. Monitor nutrition status, intakes, wt trends, labs, and fluid balance. RD will continue to follow. Malnutrition Assessment: Malnutrition Status: At risk for malnutrition (Comment) Context: Acute Illness Findings of the 6 clinical characteristics of malnutrition: Energy Intake: Mild decrease in energy intake (Comment) (CLD x3 days) Weight Loss: No significant weight loss Body Fat Loss: Unable to assess Muscle Mass Loss: Unable to assess Fluid Accumulation: No significant fluid accumulation Flexible Sh[place] Winder Strength: Not Performed Nutrition Assessment: Pt hx HTN, stroke, COPD, CKD, IBS. Admitted w/ vomiting and diarrhea. +norovirus. Started on abx for concern of aspiration pna. Pt's symptoms have improved during admission. Consuming and tolerating CLD. Medically stable for discharge back to SNF per notes. Estimated Daily Nutrient Needs: Energy Requirements Based On: Kcal/kg Weight Used for Energy Requirements: [place] Weight for Energy Calculation (kg): 54 kg Total Energy Requirements (kcals/day): 9112-9520 Weight Used for Protein Requirements: [place] Weight in Kg Used for Protein Requirements: 54 kg Estimated Total Protein (g/day): 54-65 Estimated Daily Total Fluid (ml/day): per MD Nutrition Related Findings: +BS. No edema. +I&O. Vincent 12 Wound Type: None BMP: Recent Labs 08/04/24 0447 08/05/24 0358 08/05/24 2343 NA 139 134* 139 K 3.9 3.8 3.8 CL 112* 108* 115* CO2 21* 21* 17* BUN 26* 13 9 CREATININE 1.13* 0.89 0.91 GLUCOSE 153* 85 92 CALCIUM 8.2* 8.1* 8.4* HEPATIC: Recent Labs 08/04/24 0447 08/05/24 0358 08/05/24 2343 AST 25 24 21 ALT 26 27 24 BILITOT 0.5 0.6 0.9 ALKPHOS 68 74 72 Lab Results Component Value Date HGBA1C 5.8 (H) 07/05/2024 Current Nutrition Therapies: Adult diet Clear liquid Current Oral Intake Average Meal Intake: 76-100% (CLD) Average Supplements Intake: None Ordered Anthropometric Measures: Height: 162 cm (5' 3.78") Current Body Weight: 74.8 kg (165 lb) (08/03) Weight Source: Bed Scale Usual Body Weight: 66.7 kg (147 lb) (per Epic 05/14; 160# 07/05) % Weight Change (Calculated): 12.2 [place] Body Weight (lbs) (Calculated): 119 lbs [place] Body Weight (Kg) (Calculated): 54 kg BMI (kg/m2) (Calculated): 28.5 Weight Adjustment For: No Adjustment BMI Categories: Overweight (BMI 25.0-29.9) Nutrition Diagnosis: Inadequate oral intake related to altered GI function as evidenced by NPO or clear liquid status due to medical condition Nutrition Interventions: Nutrition Education/Counseling: No recommendation at this time Coordination of Nutrition Care: Continue to monitor while inpatient Goals: Goals: PO intake 50% or greater, by next RD assessment Nutrition Monitoring and Evaluation: Behavioral-Environmental Outcomes: None Identified Food/Nutrient Intake Outcomes: Diet Advancement/Tolerance, Food and Nutrient Intake Physical Signs/Symptoms Outcomes: Biochemical Data, GI Status, Fluid Status or Edema, Nutrition Focused Physical Findings, Skin, Weight Discharge Planning: Too soon to determine Gabriella Michelle RD, LD Contact: [phone] documented in this encounter [facility] 08-06-2024 Plan of care note Problem: Knowledge Deficit Goal: Patient/family/caregiver demonstrates understanding of disease process, treatment plan, medications, and discharge instructions Outcome: Progressing Problem: Potential for Compromised Skin Integrity Goal: Skin Integrity is Maintained or Improved Outcome: Progressing Goal: Nutritional status is improving Outcome: Progressing Problem: Urinary Incontinence Goal: Perineal skin integrity is maintained or improved Outcome: Progressing [facility] [employer] [place] 08-05-2024 Plan of care note Problem: Knowledge Deficit Goal: Patient/family/caregiver demonstrates understanding of disease process, treatment plan, medications, and discharge instructions Outcome: Progressing Problem: Potential for Compromised Skin Integrity Goal: Skin Integrity is Maintained or Improved Outcome: Progressing Goal: Nutritional status is improving Outcome: Progressing Problem: Urinary Incontinence Goal: Perineal skin integrity is maintained or improved Outcome: Progressing [employer] [place] 08-04-2024 Plan of care note Problem: Knowledge Deficit Goal: Patient/family/caregiver demonstrates understanding of disease process, treatment plan, medications, and discharge instructions Outcome: Progressing Problem: Potential for Compromised Skin Integrity Goal: Skin Integrity is Maintained or Improved Outcome: Progressing Goal: Nutritional status is improving Outcome: Progressing Problem: Urinary Incontinence Goal: Perineal skin integrity is maintained or improved Outcome: Progressing [facility] [employer] [place] 08-04-2024 Nurse Note Bedside swallow completed. Pt passed and tolerated well tolerated well. [facility] [employer] [place] 08-04-2024 Plan of care note Problem: Knowledge Deficit Goal: Patient/family/caregiver demonstrates understanding of disease process, treatment plan, medications, and discharge instructions Outcome: Progressing Problem: Potential for Compromised Skin Integrity Goal: Skin Integrity is Maintained or Improved Outcome: Progressing Goal: Nutritional status is improving Outcome: Progressing Problem: Urinary Incontinence Goal: Perineal skin integrity is maintained or improved Outcome: Progressing [facility] 08-03-2024 Plan of care note Problem: Knowledge Deficit Goal: Patient/family/caregiver demonstrates understanding of disease process, treatment plan, medications, and discharge instructions 08/03/2024 1457 by Lima Saenz RN Outcome: Progressing 08/03/2024 0842 by Lima Saenz RN Outcome: Progressing 08/03/2024 0842 by Lima Saenz RN Outcome: Progressing Problem: Potential for Compromised Skin Integrity Goal: Skin Integrity is Maintained or Improved 08/03/2024 1457 by Lima Saenz RN Outcome: Progressing 08/03/2024 0842 by Lima Saenz RN Outcome: Progressing 08/03/2024 0842 by Lima Saenz RN Outcome: Progressing [facility] 08-03-2024 Note Formatting of this n ote might be different from the original. Return referral placed to [facility] via [facility] per TCC request. Await review and response regarding ability to accept. TCC notified. [facility] 08-03-2024 Note Formatting of this n ote might be different from the original. Return referral placed to [facility] via [facility] per TCC request. Await review and response regarding ability to accept. TCC notified. [facility] 08-03-2024 Note Return referral plac ed to [facility] via [facility] per TCC request. Await review and response regarding ability to accept. TCC notified. [facility] 08-03-2024 Note Formatting of this n ote might be different from the original. Pt to ED w N/V/Diarrhea, was Dx w Aspiration pneumonitis. Started on IV ATB's. Called pt's Divine, Fidel, . Pt is from [facility]. Plan on returning. [facility] tasked to send a return referral. [facility] 08-03-2024 Note Formatting of this n ote might be different from the original. Pt to ED w N/V/Diarrhea, was Dx w Aspiration pneumonitis. Started on IV ATB's. Called pt's Dtr, Fidel, . Pt is from [facility]. Plan on returning. [facility] tasked to send a return referral. [facility] 08-03-2024 History and physical note Attending History and Physical Admit Date: 08/03/2024 PCP: Jared Evans MD CHIEF COMPLAINT: vomiting/diarrhea Reason for Admission: aspiration pneumonitis History Obtained From: patient HISTORY OF PRESENT ILLNESS: Mel is a 83 y.o. female with past medical history below who presents with chief complaint listed above.Patient is an 83 y/o female who presented to [facility] early this AM from local [place] for vomiting and diarrhea. Patient reported she vomited a "large amount" early this AM. She didn't realized she had a BM until the nurses checked on her and she was incontinent of stool. Patient with recent hospitalization for acute angle closure glaucoma. Had surgery on the eye 1 week ago. Spoke with the daughter and she is to provide correct list of eye drops for the patient. Patient states she now feels fine. She denies abdominal pain or nausea. No SOB or CP, she has minimal cough. Will admit for further evaluation and management. Past Medical History: Past Medical History: Diagnosis Date Arrhythmia PAF Asthma Chronic kidney disease COPD (chronic obstructive pulmonary disease) (HCC) DVT (deep venous thrombosis) (HCC) Essential hypertension 03/07/2020 GERD (gastroesophageal reflux disease) Hiatal hernia IBS (irritable bowel syndrome) Pure hypercholesterolemia 03/07/2020 PVD (peripheral vascular disease) (HCC) Stroke (HCC) Past Surgical History: Past Surgical History: Procedure Laterality Date ANKLE SURGERY ARM SURGERY (HISTORICAL) Right COLONOSCOPY ESOPHAGEAL DILATION EYE SURGERY 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 HYSTERECTOMY ORTHOPEDIC SURGERY THROMBECTOMY Right 04/06/2024 RLE mechanical thrombectomy (Krzysztof) Social History: Social History Socioeconomic History Marital status: Spouse name: Not on file Number of children: Not on file Years of education: Not on file Highest education level: Not on file Occupational History Not on file Tobacco Use Smoking status: Former Current packs/day: 0.50 Types: Cigarettes Smokeless tobacco: Never Substance and Sexual Activity Alcohol use: Not Currently Alcohol/week: 1.0 standard drink of alcohol Types: 1 Cans of beer per week Comment: occ Drug use: Never Sexual activity: Not on file Other Topics Concern Not on file Social History Narrative Not on file Social Drivers of Health Financial Resource Strain: Low Risk (06/20/2024) Received from [facility] Overall Financial Resource Strain (CARDIA) Difficulty of Paying Living Expenses: Not very hard Food Insecurity: Patient Unable To Answer (08/03/2024) Hunger Vital Sign Worried About Running Out of Food in the Last Year: Patient unable to answer Ran Out of Food in the Last Year: Patient unable to answer Transportation Needs: Unmet Transportation Needs (08/03/2024) PRAPARE - Transportation Lack of Transportation (Medical): Yes Lack of Transportation (Non-Medical): No Physical Activity: Inactive (04/04/2024) Exercise Vital Sign Days of Exercise per Week: 0 days Minutes of Exercise per Session: 0 min Stress: Patient Unable To Answer (08/03/2024) [employer] [place] [employer] - Occupational Stress Questionnaire Feeling of Stress : Patient unable to answer Social Connections: Unknown (08/03/2024) Social Connection and Isolation Panel [NHANES] Frequency of Communication with Friends and Family: Patient unable to answer Frequency of Social Gatherings with Friends and Family: Patient unable to answer Attends [employer] Services: Patient unable to answer Active Member of Clubs or Organizations: Patient unable to answer Attends Club or Organization Meetings: Never Marital Status: Patient unable to answer Recent Concern: Social Connections - Moderately Isolated (06/20/2024) Received from [facility] Medical Social Connection and Isolation Panel [NHANES] Frequency of Communication with Friends and Family: More than three times a week Frequency of Social Gatherings with Friends and Family: Once a week Attends [employer] Services: More than 4 times per year Active Member of Clubs or Organizations: No Attends Club or Organization Meetings: Never Marital Status: Intimate Partner Violence: Not At Risk (08/03/2024) Humiliation, Afraid, Rape, and Kick questionnaire Fear of Current or Ex-Partner: No Emotionally Abused: No Physically Abused: No Sexually Abused: No Housing Stability: Low Risk (08/03/2024) Housing Stability Vital Sign Unable to Pay for Housing in the Last Year: No Number of Times Moved in the Last Year: 1 Homeless in the Last Year: No Family History: Family History Problem Relation Name Age of Onset Melanoma Father Medications Prior to Admission: No current facility-administered medications on file prior to encounter. Current Outpatient Medications on File Prior to Encounter Medication Sig Dispense Refill ascorbic acid (Vitamin C) 500 MG tablet Take 500 mg by mouth in the morning and 500 mg at noon and 500 mg in the evening. brimonidine (AlphaGAN) 0.2 % ophthalmic solution Administer 1 drop into the right eye 3 times daily. dorzolamide (Trusopt) 2 % ophthalmic solution Administer 1 drop into the right eye 3 times daily. lisinopril 40 MG tablet Take 40 mg by mouth daily. metoprolol tartrate (Lopressor) 25 MG tablet Take 25 mg by mouth in the morning and 25 mg in the evening. Take with meals. Take with food.. prednisoLONE acetate (Pred-Forte) 1 % ophthalmic suspension Administer 1 drop into the right eye every 4 hours. timolol (Timoptic) 0.5 % ophthalmic solution Administer 1 drop into the right eye 2 times daily. Trelegy Ellipta 100-62.5-25 MCG/ACT aerosol powder Take 1 puff by mouth daily. [] atorvastatin (Lipitor) 80 MG tablet Take 80 mg by mouth daily. [] enoxaparin (Lovenox) 80 MG/0.8ML solution prefilled syringe Inject 70 mg under the skin twice a day. 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 Respiratory: minimal cough, no SOB Cardiovascular: Negative for chest pain. Gastrointestinal: N/V/D earlier now resolved Genitourinary: Negative for dysuria, frequency and flank pain. Musculoskeletal: Negative for myalgias and joint swelling. Skin: Negative for rash. Neurological:no GABRIEL Hematological: Negative for adenopathy. Psychiatric/Behavioral: Negative for suicidal ideas Vitals: BP 136/72 (BP Location: Right arm, Patient Position: Sitting) Pulse 99 Temp 36.3 C (97.3 F) (Temporal) Resp 20 Ht 5' 3.78" (1.62 m) Wt 165 lb 5.5 oz (75 kg) LMP (LMP Unknown) SpO2 94% BMI 28.58 kg/m BMI Classification: Overweight (BMI 25.0-29.9) Pulse Ox: SpO2 Av.2 % Min: 93 % Max: 100 % Supplemental O2: PHYSICAL EXAM: Physical Exam Vitals reviewed. HENT: Head: Normocephalic. Mouth/Throat: Mouth: Mucous membranes are dry. Eyes: Comments: Cloudy cornea left eye, pupil dilated right eye, scleral injection right eye Cardiovascular: Rate and Rhythm: Normal rate. Rhythm irregular. Pulmonary: Effort: Pulmonary effort is normal. Breath sounds: No wheezing. Abdominal: General: Bowel sounds are normal. Palpations: Abdomen is soft. Musculoskeletal: Cervical back: Neck supple. Right lower leg: No edema. Left lower leg: No edema. Comments: Venous stasis LEs Skin: General: Skin is warm and dry. Neurological: Mental Status: She is alert and oriented to person, place, and time. Psychiatric: Mood and Affect: Mood normal. DATA: CBC: Recent Labs 08/03/24 0251 WBC 9.1 RBC 4.65 HGB 12.1 HCT 38.7 MCV 83.2 RDW 19.4* PLT 303 BMP: Recent Labs 08/03/24 0251 08/03/24 0405 NA 139 138 K 5.9* 4.3 CL 109* -- CO2 21* -- BUN 34* -- CREATININE 1.30* 1.3 GLUCOSE 103 -- CALCIUM 9.0 -- ANIONGAP 9 -- LIVER PROFILE: Recent Labs 08/03/24 0251 AST 36* ALT 26 BILITOT 0.7 ALKPHOS 82 PROT 6.7 CXR: reviewed by me neg acute process IMPRESSION: CT abd/pelvis 1. Extensive colonic diverticulosis without evidence of diverticulitis 2. Consolidation in the medial left lower lobe, possibly pneumonia 3. No bowel dilatation PT/INR: No results for input(s): "PROTIME", "INR" in the last 72 hours. CARDIAC ENZYMES: No results for input(s): "TROPONINI" in the last 72 hours. Procalcitonin: No results found for: "PROCAL" Urine Culture: No results found for this or any previous visit. COVID-19 PCR: No results for input(s): "COVID19" in the last 72 hours. I reviewed: [x] laboratory results [x] radiographic results At the time of today's encounter. Pt was advised of the results. Data: (CAT1) Reviewed 2 notes from different specialty or health system (each=1). (CAT1) Reviewed 3 or more labs/studies ordered by another provider not previously counted (each=1, panels count as 1). (CAT1) Reviewed 3 or more labs/studies previously ordered by me not previously counted (each=1, panels count as 1). (LOW: 2x CAT1 or independent historian MOD: 3x CAT1 or 1x CAT3 EXTENSIVE: 3x CAT1 and 1x CAT3) Assessment Discussed management with the ED provider and agree with hospitalization. 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 HLD Blindness Plan As a result of the above findings & factors, the following mgmt was pursued: - inpatient admission to [facility] tele - check stool studies and cdiff, LA - continue IVF - diet as tolerated - repeat BMP later today- specimen hemolyzed but repeat istat showed normal K+ - IV Unasyn, PRN duonebs- patient on RA no SOB - swallow eval before po - am labs, replace lytes prn - PT/OT/CM/SW - delirium precautions: increase activity and limit nighttime disturbances - DVT prophylaxis: encourage ambulation and already anticoagulated Complexity: Acute illness or injury posing a threat to life or body function (HIGH). Risk: Admission to hospital-level care was considered or occurred (HIGH). Advance Directive: DNR-CCA Anticipated Discharge - Date - 08/05/2024 - Location - Skilled Facility - Pending the following - clinical course Total time spent (which include face to face and non face to face encounters) : 54 minutes. Extended Emergency Contact Information Primary Emergency Contact: José Miguel Castillo/ Fidel Mobile Relation: Mother Secondary Emergency Contact: Damaris Villafana DO NOT CALL-TERMINALLY ILL Mobile Relation: Friend [employer] Mel Pop : 1940 Primary Care Physician: Jared Evans MD The patient and/or family/surrogate voluntarily agreed to participate in ACP services. Patient s cognitive capacity: A&O x 3 Code Status: [_] [FULL CODE - Continue all advanced life support: CPR,intubation,invasive procedures] [x_] [DNR-CCA - DO NOT do CPR, intubation] [_] [DNR-STEAMER TENDER - Comfort care only] [_] DNR form [was/was not] signed Summary of discussion: The patient health care POA/ surrogate is the following: daughter. [Condition that instigated the ACP on this DOS, relevant PMH, functional status, goals of care, and whom this was discussed with including names and relationship to the patient, and any relevant advance care documentation discussion] I answered all the patient/family questions that I could within the range and scope of the current medical situation. We discussed the medical conditions, risks, benefits, outcomes, and goals of care at this time for the patient's medical issues at hand in the face of the patient's chronic issues and current presentation. Total time spent: 2 minutes were spent discussing the patient's resuscitation status, advance care planning, and end of life care, with patient and/or family/surrogate. Shivani Dimas PA-C Division of Hospitalist Medicine [facility] Cosigned by Abbi Long DO at 08/03/2024 2:29 PM EST Associated attestation - Abbi Long DO - 08/03/2024 2:29 PM EST Patient seen evaluated a separate encounter Radha saenz at bedside patient reported large episode of emesis nonbloody this morning. Patient hospitalized for aspiration pneumonitis possible history of pneumonia and LORENZA. Started on Unasyn. Oxygen adequately on room air and hemodynamically stable. Other oriented x 3 No wheezing no use of accessory muscles Regular rate rhythm S1-S2 present No edema Soft nontender abdomen bowel sounds present no guarding or regular rigidity [employer] Work Phone: 08-03-2024 Note [employer] [facility] 08-03-2024 History and physical note Attending History and Physical Admit Date: 08/03/2024 PCP: Jared Evans MD CHIEF COMPLAINT: vomiting/diarrhea Reason for Admission: aspiration pneumonitis History Obtained From: patient HISTORY OF PRESENT ILLNESS: Mel is a 83 y.o. female with past medical history below who presents with chief complaint listed above.Patient is an 83 y/o female who presented to [place] ER early this AM from local [place] for vomiting and diarrhea. Patient reported she vomited a "large amount" early this AM. She didn't realized she had a BM until the nurses checked on her and she was incontinent of stool. Patient with recent hospitalization for acute angle closure glaucoma. Had surgery on the eye 1 week ago. Spoke with the daughter and she is to provide correct list of eye drops for the patient. Patient states she now feels fine. She denies abdominal pain or nausea. No SOB or CP, she has minimal cough. Will admit for further evaluation and management. Past Medical History: Past Medical History: Diagnosis Date Arrhythmia PAF Asthma Chronic kidney disease COPD (chronic obstructive pulmonary disease) (HCC) DVT (deep venous thrombosis) (HCC) Essential hypertension 03/07/2020 GERD (gastroesophageal reflux disease) Hiatal hernia IBS (irritable bowel syndrome) Pure hypercholesterolemia 03/07/2020 PVD (peripheral vascular disease) (HCC) Stroke (HCC) Past Surgical History: Past Surgical History: Procedure Laterality Date ANKLE SURGERY ARM SURGERY (HISTORICAL) Right COLONOSCOPY ESOPHAGEAL DILATION EYE SURGERY 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 HYSTERECTOMY ORTHOPEDIC SURGERY THROMBECTOMY Right 04/06/2024 RLE mechanical thrombectomy (Krzysztof) Social History: Social History Socioeconomic History Marital status: Spouse name: Not on file Number of children: Not on file Years of education: Not on file Highest education level: Not on file Occupational History Not on file Tobacco Use Smoking status: Former Current packs/day: 0.50 Types: Cigarettes Smokeless tobacco: Never Substance and Sexual Activity Alcohol use: Not Currently Alcohol/week: 1.0 standard drink of alcohol Types: 1 Cans of beer per week Comment: occ Drug use: Never Sexual activity: Not on file Other Topics Concern Not on file Social History Narrative Not on file Social Drivers of Health Financial Resource Strain: Low Risk (06/20/2024) Received from [facility] Medical Overall Financial Resource Strain (CARDIA) Difficulty of Paying Living Expenses: Not very hard Food Insecurity: Patient Unable To Answer (08/03/2024) Hunger Vital Sign Worried About Running Out of Food in the Last Year: Patient unable to answer Ran Out of Food in the Last Year: Patient unable to answer Transportation Needs: Unmet Transportation Needs (08/03/2024) PRAPARE - Transportation Lack of Transportation (Medical): Yes Lack of Transportation (Non-Medical): No Physical Activity: Inactive (04/04/2024) Exercise Vital Sign Days of Exercise per Week: 0 days Minutes of Exercise per Session: 0 min Stress: Patient Unable To Answer (08/03/2024) [employer] - Occupational Stress Questionnaire Feeling of Stress : Patient unable to answer Social Connections: Unknown (08/03/2024) Social Connection and Isolation Panel [NHANES] Frequency of Communication with Friends and Family: Patient unable to answer Frequency of Social Gatherings with Friends and Family: Patient unable to answer Attends [employer] Services: Patient unable to answer Active Member of Clubs or Organizations: Patient unable to answer Attends Club or Organization Meetings: Never Marital Status: Patient unable to answer Recent Concern: Social Connections - Moderately Isolated (06/20/2024) Received from [facility] Medical Social Connection and Isolation Panel [NHANES] Frequency of Communication with Friends and Family: More than three times a week Frequency of Social Gatherings with Friends and Family: Once a week Attends [employer] Services: More than 4 times per year Active Member of Clubs or Organizations: No Attends Club or Organization Meetings: Never Marital Status: Intimate Partner Violence: Not At Risk (08/03/2024) Humiliation, Afraid, Rape, and Kick questionnaire Fear of Current or Ex-Partner: No Emotionally Abused: No Physically Abused: No Sexually Abused: No Housing Stability: Low Risk (08/03/2024) Housing Stability Vital Sign Unable to Pay for Housing in the Last Year: No Number of Times Moved in the Last Year: 1 Homeless in the Last Year: No Family History: Family History Problem Relation Name Age of Onset Melanoma Father Medications Prior to Admission: No current facility-administered medications on file prior to encounter. Current Outpatient Medications on File Prior to Encounter Medication Sig Dispense Refill ascorbic acid (Vitamin C) 500 MG tablet Take 500 mg by mouth in the morning and 500 mg at noon and 500 mg in the evening. brimonidine (AlphaGAN) 0.2 % ophthalmic solution Administer 1 drop into the right eye 3 times daily. dorzolamide (Trusopt) 2 % ophthalmic solution Administer 1 drop into the right eye 3 times daily. lisinopril 40 MG tablet Take 40 mg by mouth daily. metoprolol tartrate (Lopressor) 25 MG tablet Take 25 mg by mouth in the morning and 25 mg in the evening. Take with meals. Take with food.. prednisoLONE acetate (Pred-Forte) 1 % ophthalmic suspension Administer 1 drop into the right eye every 4 hours. timolol (Timoptic) 0.5 % ophthalmic solution Administer 1 drop into the right eye 2 times daily. Trelegy Ellipta 100-62.5-25 MCG/ACT aerosol powder Take 1 puff by mouth daily. [] atorvastatin (Lipitor) 80 MG tablet Take 80 mg by mouth daily. [] enoxaparin (Lovenox) 80 MG/0.8ML solution prefilled syringe Inject 70 mg under the skin twice a day. 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 Respiratory: minimal cough, no SOB Cardiovascular: Negative for chest pain. Gastrointestinal: N/V/D earlier now resolved Genitourinary: Negative for dysuria, frequency and flank pain. Musculoskeletal: Negative for myalgias and joint swelling. Skin: Negative for rash. Neurological:no GABRIEL Hematological: Negative for adenopathy. Psychiatric/Behavioral: Negative for suicidal ideas Vitals: BP 136/72 (BP Location: Right arm, Patient Position: Sitting) Pulse 99 Temp 36.3 C (97.3 F) (Temporal) Resp 20 Ht 5' 3.78" (1.62 m) Wt 165 lb 5.5 oz (75 kg) LMP (LMP Unknown) SpO2 94% BMI 28.58 kg/m BMI Classification: Overweight (BMI 25.0-29.9) Pulse Ox: SpO2 Av.2 % Min: 93 % Max: 100 % Supplemental O2: PHYSICAL EXAM: Physical Exam Vitals reviewed. HENT: Head: Normocephalic. Mouth/Throat: Mouth: Mucous membranes are dry. Eyes: Comments: Cloudy cornea left eye, pupil dilated right eye, scleral injection right eye Cardiovascular: Rate and Rhythm: Normal rate. Rhythm irregular. Pulmonary: Effort: Pulmonary effort is normal. Breath sounds: No wheezing. Abdominal: General: Bowel sounds are normal. Palpations: Abdomen is soft. Musculoskeletal: Cervical back: Neck supple. Right lower leg: No edema. Left lower leg: No edema. Comments: Venous stasis LEs Skin: General: Skin is warm and dry. Neurological: Mental Status: She is alert and oriented to person, place, and time. Psychiatric: Mood and Affect: Mood normal. DATA: CBC: Recent Labs 08/03/24 0251 WBC 9.1 RBC 4.65 HGB 12.1 HCT 38.7 MCV 83.2 RDW 19.4* PLT 303 BMP: Recent Labs 08/03/24 0251 08/03/24 0405 NA 139 138 K 5.9* 4.3 CL 109* -- CO2 21* -- BUN 34* -- CREATININE 1.30* 1.3 GLUCOSE 103 -- CALCIUM 9.0 -- ANIONGAP 9 -- LIVER PROFILE: Recent Labs 08/03/24 0251 AST 36* ALT 26 BILITOT 0.7 ALKPHOS 82 PROT 6.7 CXR: reviewed by me neg acute process IMPRESSION: CT abd/pelvis 1. Extensive colonic diverticulosis without evidence of diverticulitis 2. Consolidation in the medial left lower lobe, possibly pneumonia 3. No bowel dilatation PT/INR: No results for input(s): "PROTIME", "INR" in the last 72 hours. CARDIAC ENZYMES: No results for input(s): "TROPONINI" in the last 72 hours. Procalcitonin: No results found for: "PROCAL" Urine Culture: No results found for this or any previous visit. COVID-19 PCR: No results for input(s): "COVID19" in the last 72 hours. I reviewed: [x] laboratory results [x] radiographic results At the time of today's encounter. Pt was advised of the results. Data: (CAT1) Reviewed 2 notes from different specialty or health system (each=1). (CAT1) Reviewed 3 or more labs/studies ordered by another provider not previously counted (each=1, panels count as 1). (CAT1) Reviewed 3 or more labs/studies previously ordered by me not previously counted (each=1, panels count as 1). (LOW: 2x CAT1 or independent historian MOD: 3x CAT1 or 1x CAT3 EXTENSIVE: 3x CAT1 and 1x CAT3) Assessment Discussed management with the ED provider and agree with hospitalization. 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 HLD Blindness Plan As a result of the above findings & factors, the following mgmt was pursued: - inpatient admission to [facility] tele - check stool studies and cdiff, LA - continue IVF - diet as tolerated - repeat BMP later today- specimen hemolyzed but repeat istat showed normal K+ - IV Unasyn, PRN duonebs- patient on RA no SOB - swallow eval before po - am labs, replace lytes prn - PT/OT/CM/SW - delirium precautions: increase activity and limit nighttime disturbances - DVT prophylaxis: encourage ambulation and already anticoagulated Complexity: Acute illness or injury posing a threat to life or body function (HIGH). Risk: Admission to hospital-level care was considered or occurred (HIGH). Advance Directive: DNR-CCA Anticipated Discharge - Date - 08/05/2024 - Location - Skilled Facility - Pending the following - clinical course Total time spent (which include face to face and non face to face encounters) : 54 minutes. Extended Emergency Contact Information Primary Emergency Contact: José Miguel Castillo/ Fidel Mobile Relation: Mother Secondary Emergency Contact: Damaris Villafana DO NOT CALL-TERMINALLY ILL Mobile Relation: Friend [employer] Mel Pop : 1940 Primary Care Physician: Jared Evans MD The patient and/or family/surrogate voluntarily agreed to participate in ACP services. Patient s cognitive capacity: A&O x 3 Code Status: [_] [FULL CODE - Continue all advanced life support: CPR,intubation,invasive procedures] [x_] [DNR-CCA - DO NOT do CPR, intubation] [_] [DNR-STEAMER TENDER - Comfort care only] [_] DNR form [was/was not] signed Summary of discussion: The patient health care POA/ surrogate is the following: daughter. [Condition that instigated the ACP on this DOS, relevant PMH, functional status, goals of care, and whom this was discussed with including names and relationship to the patient, and any relevant advance care documentation discussion] I answered all the patient/family questions that I could within the range and scope of the current medical situation. We discussed the medical conditions, risks, benefits, outcomes, and goals of care at this time for the patient's medical issues at hand in the face of the patient's chronic issues and current presentation. Total time spent: 2 minutes were spent discussing the patient's resuscitation status, advance care planning, and end of life care, with patient and/or family/surrogate. Shivani Dimas PA-C Division of Hospitalist Medicine [facility] Cosigned by Abbi Long DO at 08/03/2024 2:29 PM EST Associated attestation - Abbi Long DO - 08/03/2024 2:29 PM EST Patient seen evaluated a separate encounter Radha saenz at bedside patient reported large episode of emesis nonbloody this morning. Patient hospitalized for aspiration pneumonitis possible history of pneumonia and LORENZA. Started on Unasyn. Oxygen adequately on room air and hemodynamically stable. Other oriented x 3 No wheezing no use of accessory muscles Regular rate rhythm S1-S2 present No edema Soft nontender abdomen bowel sounds present no guarding or regular rigidity documented in this encounter [facility] 08-03-2024 Plan of care note Problem: Potential for Compromised Skin Integrity Goal: Skin Integrity is Maintained or Improved 08/03/2024 0842 by Lima Saenz RN Outcome: Progressing 08/03/2024 0842 by Lima Saenz RN Outcome: Progressing Problem: Potential for Compromised Skin Integrity Goal: Nutritional status is improving 08/03/2024 0842 by Lima Saenz RN Outcome: Progressing 08/03/2024 0842 by Lima Saenz RN Outcome: Progressing [facility] 08-03-2024 Plan of care note Problem: Knowledge Deficit Goal: Patient/family/caregiver demonstrates understanding of disease process, treatment plan, medications, and discharge instructions Outcome: Progressing Problem: Potential for Compromised Skin Integrity Goal: Skin Integrity is Maintained or Improved Outcome: Progressing [facility] 08-03-2024 Emergency department Note Pt placed in roundtrip [facility] 08-03-2024 Emergency department Note Pt placed in roundtrip ED CT and ED xray notified that patient is ready EMERGENCY DEPARTMENT ENCOUNTER Pt Name: Mel Pop Birthdate 1940 Date of evaluation: 08/03/2024 ED Provider: Mariana King DO CHIEF COMPLAINT Chief Complaint Patient presents with Nausea Vomiting States that she was told she threw up twice, pt does not remember. Diarrhea Pt states that she was sleeping when RN woke her up and notified her that she was incontinent of stool. HISTORY OF PRESENT ILLNESS (Location/Symptom, Timing/Onset, Context/Setting, Quality, Duration, Modifying Factors, Severity) Note limiting factors. I wore appropriate PPE for the entirety of this encounter. HPI Mel Pop is a 83 y.o. female medical history of IBS with diarrhea, CKD 3, history of hysterectomy, atrial fibrillation/history of DVT on Eliquis who presents to the emergency department from [facility] for acute onset nausea/vomiting/diarrhea x 3 episodes that began 45 minutes prior to arrival. No blood in emesis or diarrhea. Given single dose of Zofran by [facility] staff following first episode but subsequently soon after vomited prompting EMS call. On arrival, patient denying any acute complaints. Denies nausea or diarrhea. Denies abdominal pain. Denies chest pain or shortness of breath. States that she had felt well prior to going to bed. Confirmed that patient was at baseline and had no complaints prior to acute onset of symptoms 45 minutes prior to ED transport for [facility]. [facility] reports a second resident with similar symptoms earlier today. No known flu or COVID exposures. Patient denying other flu or COVID symptoms such as headache, myalgias, fevers, congestion, cough. Nursing Notes were reviewed. Limitations to history: None Outside historians: [facility] staff (Jabari) REVIEW OF SYSTEMS Review of Systems Negative except per HPI PAST MEDICAL HISTORY Past Medical History: Diagnosis Date Arrhythmia PAF Asthma Chronic kidney disease COPD (chronic obstructive pulmonary disease) (HCC) DVT (deep venous thrombosis) (HCC) Essential hypertension 03/07/2020 GERD (gastroesophageal reflux disease) Hiatal hernia IBS (irritable bowel syndrome) Pure hypercholesterolemia 03/07/2020 PVD (peripheral vascular disease) (HCC) Stroke (HCC) SURGICAL HISTORY Past Surgical History: Procedure Laterality Date ANKLE SURGERY ARM SURGERY (HISTORICAL) Right COLONOSCOPY ESOPHAGEAL DILATION EYE SURGERY 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 HYSTERECTOMY ORTHOPEDIC SURGERY THROMBECTOMY Right 04/06/2024 RLE mechanical thrombectomy (Krzysztof) CURRENT MEDICATIONS Previous Medications ASCORBIC ACID (VITAMIN C) 500 MG TABLET Take 500 mg by mouth in the morning and 500 mg at noon and 500 mg in the evening. BRIMONIDINE (ALPHAGAN) 0.2 % OPHTHALMIC SOLUTION Administer 1 drop into the right eye 3 times daily. DORZOLAMIDE (TRUSOPT) 2 % OPHTHALMIC SOLUTION Administer 1 drop into the right eye 3 times daily. LISINOPRIL 40 MG TABLET Take 40 mg by mouth daily. METOPROLOL TARTRATE (LOPRESSOR) 25 MG TABLET Take 25 mg by mouth in the morning and 25 mg in the evening. Take with meals. Take with food.. PREDNISOLONE ACETATE (PRED-FORTE) 1 % OPHTHALMIC SUSPENSION Administer 1 drop into the right eye every 4 hours. TIMOLOL (TIMOPTIC) 0.5 % OPHTHALMIC SOLUTION Administer 1 drop into the right eye 2 times daily. TRELEGY ELLIPTA 100-62.5-25 MCG/ACT AEROSOL POWDER Take 1 puff by mouth daily. ALLERGIES Advair hfa [fluticasone-salmeterol], Amoxicillin, and Percocet [oxycodone-acetaminophen] FAMILY HISTORY Family History Problem Relation Name Age of Onset Melanoma Father SOCIAL HISTORY Social History Socioeconomic History Marital status: Tobacco Use Smoking status: Former Current packs/day: 0.50 Types: Cigarettes Smokeless tobacco: Never Substance and Sexual Activity Alcohol use: Not Currently Alcohol/week: 1.0 standard drink of alcohol Types: 1 Cans of beer per week Comment: occ Drug use: Never Social Drivers of Health Financial Resource Strain: Low Risk (06/20/2024) Received from [facility] Medical Overall Financial Resource Strain (CARDIA) Difficulty of Paying Living Expenses: Not very hard Food Insecurity: No Food Insecurity (07/09/2024) Received from [facility] Hunger Vital Sign Worried About Running Out of Food in the Last Year: Never true Ran Out of Food in the Last Year: Never true Transportation Needs: No Transportation Needs (07/09/2024) Received from [facility] PRAPARE - Transportation Lack of Transportation (Medical): No Lack of Transportation (Non-Medical): No Physical Activity: Inactive (04/04/2024) Exercise Vital Sign Days of Exercise per Week: 0 days Minutes of Exercise per Session: 0 min Stress: No Stress Concern Present (06/19/2024) Received from [facility] [employer] - Occupational Stress Questionnaire Feeling of Stress : Not at all Social Connections: Moderately Isolated (06/20/2024) Received from [facility] Social Connection and Isolation Panel [NHANES] Frequency of Communication with Friends and Family: More than three times a week Frequency of Social Gatherings with Friends and Family: Once a week Attends [employer] Services: More than 4 times per year Active Member of Clubs or Organizations: No Attends Club or Organization Meetings: Never Marital Status: Intimate Partner Violence: Not At Risk (06/19/2024) Received from [facility] Medical Domestic Abuse Assessment Do you feel safe in your relationships at home?: Yes Physical Abuse: Denies Verbal Abuse: Denies Housing Stability: Low Risk (07/09/2024) Received from [facility] Housing Stability Vital Sign Unable to Pay for Housing in the Last Year: No Number of Times Moved in the Last Year: 0 Homeless in the Last Year: No SCREENINGS PHYSICAL EXAM ED Triage Vitals [08/03/24 0224] Temp Heart Rate Resp BP 37.1 C (98.7 F) 83 18 129/88 SpO2 Temp Source Heart Rate Source Patient Position 94 % Oral Monitor -- BP Location FiO2 (%) Right arm -- Physical Exam BP 129/88 (BP Location: Right arm) Pulse 83 Temp 37.1 C (98.7 F) (Oral) Resp 18 Ht 1.626 m (5' 4") Wt 72.6 kg (160 lb) LMP (LMP Unknown) SpO2 94% BMI 27.46 kg/m Gen: Nontoxic appearing CV: RRR, no murmurs Pulm: CTA BL Abdomen: Soft, nontender, no distension, no rebound/guarding, no peritoneal signs and no masses. DIAGNOSTIC RESULTS RADIOLOGY (Per Emergency Physician): Chest x-ray without consolidation CT abdomen/pelvis without acute abdominal pathology. Noted to have consolidation left lower lobe Interpretation per the Radiologist below, if available at the time of this note: CT abdomen pelvis wo IV contrast Final Result 1. Extensive colonic diverticulosis without evidence of diverticulitis 2. Consolidation in the medial left lower lobe, possibly pneumonia 3. No bowel dilatation Report Dictated on Electronically Signed By: Ming Fry MD Electronically Signed Date/Time: 08/03/2024 4:05 AM EST XR chest 1 view Final Result No acute abnormality Report Dictated on Electronically Signed By: Ming Fry MD Electronically Signed Date/Time: 08/03/2024 3:33 AM EST LABS: Labs Reviewed CBC WITH AUTO DIFFERENTIAL - Abnormal Result Value Auto WBC 9.1 RBC 4.65 Hemoglobin 12.1 Hematocrit 38.7 MCV 83.2 MCH 26.0 MCHC 31.3 RDW 19.4 (*) Platelets 303 MPV 9.8 nRBC 0.0 COMPREHENSIVE METABOLIC PANEL - Abnormal SODIUM 139 POTASSIUM 5.9 (*) CHLORIDE 109 (*) CARBON DIOXIDE 21 (*) ANION GAP 9 UREA NITROGEN 34 (*) CREATININE 1.30 (*) GLUCOSE 103 CALCIUM 9.0 AST (SGOT) 36 (*) ALT 26 ALKALINE PHOSPHATASE 82 ALBUMIN 2.8 (*) BILIRUBIN, TOTAL 0.7 TOTAL PROTEIN 6.7 eGFR 40.6 (*) MANUAL DIFFERENTIAL - Abnormal Adjusted WBC 9.1 Neutrophils % 87 (*) Lymphocytes % 5 (*) Monocytes % 6 Eosinophils % 1 Basophils % 0 Unclassified Cells % 1.00 Absolute Neutrophil Count 7.9 (*) Lymphocytes Absolute 0.5 (*) Monocytes Absolute 0.5 Eosinophils Absolute 0.1 Basophils Absolute 0.0 Unclassified Cells, Abs. 0.1 RBC Morphology Normal WBC Morphology Normal PLT Morphology Normal Total Counted 100 Neutrophils Manual 87 Lymphocytes Manual 5 Monocytes Manual 6 Eosinophils Manual 1 Basophils Manual 0 Differential Method Value: Automated differential reported after manual slide review SARS-COV-2, FLU A/B, AND RSV COMBO - Normal SARS-CoV-2 Not Detected Respiratory Syncytial Virus Not Detected Influenza A Not Detected Influenza B Not Detected Narrative: Methodology: real-time, RT-PCR The SARS-CoV-2, Flu A/B, and RSV Combo assay is intended for in vitro diagnostic use under the FDA Emergency Use Authorization (EUA). This test has not been FDA cleared or approved. In compliance with this authorization, please visit www.fda.gov/media/287275/download or www.fda.gov/media/159848/download to access the applicable information sheets. LIPASE - Normal LIPASE 8 MAGNESIUM - Normal MAGNESIUM 1.9 Narrative: Higher values can be expected in females during menses. BMPI ISTAT (LAB ONLY) All other labs were within normal range or not returned as of this dictation. EMERGENCY DEPARTMENT COURSE and DIFFERENTIAL DIAGNOSIS/MDM: Vitals: Vitals: 08/03/24 0224 BP: 129/88 BP Location: Right arm Pulse: 83 Resp: 18 Temp: 37.1 C (98.7 F) TempSrc: Oral SpO2: 94% Weight: 72.6 kg (160 lb) Height: 1.626 m (5' 4") 83 y.o. female medical history of blindness, IBS with diarrhea, CKD 3, history of hysterectomy, atrial fibrillation/history of DVT on Eliquis who presents to the emergency department from [facility] for acute onset nausea/vomiting/diarrhea x 3 episodes that began 45 minutes prior to arrival. No blood in emesis or diarrhea. Given single dose of Zofran by fdc staff following first episode of emesis but subsequently soon after vomited prompting EMS call. On arrival, patient denying any acute complaints. Denies nausea or diarrhea. Denies abdominal pain. Denies chest pain or shortness of breath. States that she had felt well prior to going to bed. Confirmed that patient was at baseline and had no complaints prior to acute onset of symptoms 45 minutes prior to ED transport for [facility]dc. [facility]ent[facility] reports a second resident with similar symptoms earlier today. No known flu or COVID exposures. Patient denying other flu or COVID symptoms such as headache, myalgias, fevers, congestion, cough. Considered viral syndrome, dyspepsia, bowel obstruction, pancreatitis, electrolyte abnormality. Exam benign. Abdomen soft and nontender. Patient denying any acute complaints. Given brief episode of vomiting and diarrhea with complete resolution of symptoms upon ED arrival with benign evaluation, will obtain labs with plan to defer imaging if labs unremarkable. Treated symptomatically with IV Pepcid and Zofran empirically pending results of labs. IV morphine ordered for chronic ocular pain for which patient is on prescribed oral narcotics. Abdominal labs with LORENZA and hemolyzed potassium. Repeat BMP ordered. Given noted productive cough it bedside, chest x-ray obtained to evaluate for aspiration pneumonia/pneumonitis. Patient with history of COPD. Chest x-ray as interpreted by myself without aspiration pneumonitis or pneumonia. Despite patient reporting no nausea, patient with multiple episodes of emesis prompting acquisition of CT abdomen/pelvis noncontrast. CT abdomen/pelvis as interpreted by myself with diverticulosis without diverticulitis. Patient noted to have left lower lobe consolidation on CT chest. Vital signs stable and patient is saturating at baseline on room air. Labs without leukocytosis. Given chronic lung disease with consolidation on chest CT concerning for aspiration pneumonitis versus developing aspiration pneumonia, will admit for temperature trending and interval chest x-ray to determine need for antibiotics. Patient poor historian and states that cough is at baseline. Patient admitted to medical service at [facility] under Dr. Parrish. ED Medications managed: Medications ondansetron (Zofran) injection 4 mg (4 mg IntraVENous Given 08/03/24254) famotidine (Pepcid) 20 mg in sodium chloride (PF) 0.9 % 10 mL injection (20 mg IntraVENous Given 08/03/24254) morphine injection 2 mg (2 mg IntraVENous Given 08/03/24254) promethazine (Phenergan) injection 25 mg (25 mg IntraMUSCular Given 08/03/24 0406) FINAL IMPRESSION 1. Aspiration pneumonitis (CMS/HCC) ([facility]) 2. Vomiting and diarrhea 3. LORENZA (acute kidney injury) ([facility]) DISPOSITION Observation 08/03/2024 04:20:39 AM PATIENT REFERRED TO: No follow-up provider specified. DISCHARGE MEDICATIONS: New Prescriptions No medications on file (Comment: Please note this report has been produced using speech recognition software and may contain errors related to that system including errors in grammar, punctuation, and spelling, as well as words and phrases that may be inappropriate. If there are any questions or concerns please feel free to contact the dictating provider for clarification.) Mariana King DO (electronically signed) Emergency Medicine Provider Mariana King DO 08/03/24 0422 documented in this encounter [facility] 08-03-[address] CT and ED xray notified that patient is ready [facility] 08-03-2024 Physician Emergency department Note EMERGENCY DEPARTMENT ENCOUNTER Pt Name: Mel Pop Birthdate 1940 Date of evaluation: 08/03/2024 ED Provider: Mariana King DO CHIEF COMPLAINT Chief Complaint Patient presents with Nausea Vomiting States that she was told she threw up twice, pt does not remember. Diarrhea Pt states that she was sleeping when RN woke her up and notified her that she was incontinent of stool. HISTORY OF PRESENT ILLNESS (Location/Symptom, Timing/Onset, Context/Setting, Quality, Duration, Modifying Factors, Severity) Note limiting factors. I wore appropriate PPE for the entirety of this encounter. HPI Mel Pop is a 83 y.o. female medical history of IBS with diarrhea, CKD 3, history of hysterectomy, atrial fibrillation/history of DVT on Eliquis who presents to the emergency department from [facility] for acute onset nausea/vomiting/diarrhea x 3 episodes that began 45 minutes prior to arrival. No blood in emesis or diarrhea. Given single dose of Zofran by fdc staff following first episode but subsequently soon after vomited prompting EMS call. On arrival, patient denying any acute complaints. Denies nausea or diarrhea. Denies abdominal pain. Denies chest pain or shortness of breath. States that she had felt well prior to going to bed. Confirmed that patient was at baseline and had no complaints prior to acute onset of symptoms 45 minutes prior to ED transport for [facility]. [facility] reports a second resident with similar symptoms earlier today. No known flu or COVID exposures. Patient denying other flu or COVID symptoms such as headache, myalgias, fevers, congestion, cough. Nursing Notes were reviewed. Limitations to history: None Outside historians: penitentiary staff (Jabari) REVIEW OF SYSTEMS Review of Systems Negative except per HPI PAST MEDICAL HISTORY Past Medical History: Diagnosis Date Arrhythmia PAF Asthma Chronic kidney disease COPD (chronic obstructive pulmonary disease) (HCC) DVT (deep venous thrombosis) (HCC) Essential hypertension 03/07/2020 GERD (gastroesophageal reflux disease) Hiatal hernia IBS (irritable bowel syndrome) Pure hypercholesterolemia 03/07/2020 PVD (peripheral vascular disease) (HCC) Stroke (HCC) SURGICAL HISTORY Past Surgical History: Procedure Laterality Date ANKLE SURGERY ARM SURGERY (HISTORICAL) Right COLONOSCOPY ESOPHAGEAL DILATION EYE SURGERY 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 HYSTERECTOMY ORTHOPEDIC SURGERY THROMBECTOMY Right 04/06/2024 RLE mechanical thrombectomy (Krzysztof) CURRENT MEDICATIONS Previous Medications ASCORBIC ACID (VITAMIN C) 500 MG TABLET Take 500 mg by mouth in the morning and 500 mg at noon and 500 mg in the evening. BRIMONIDINE (ALPHAGAN) 0.2 % OPHTHALMIC SOLUTION Administer 1 drop into the right eye 3 times daily. DORZOLAMIDE (TRUSOPT) 2 % OPHTHALMIC SOLUTION Administer 1 drop into the right eye 3 times daily. LISINOPRIL 40 MG TABLET Take 40 mg by mouth daily. METOPROLOL TARTRATE (LOPRESSOR) 25 MG TABLET Take 25 mg by mouth in the morning and 25 mg in the evening. Take with meals. Take with food.. PREDNISOLONE ACETATE (PRED-FORTE) 1 % OPHTHALMIC SUSPENSION Administer 1 drop into the right eye every 4 hours. TIMOLOL (TIMOPTIC) 0.5 % OPHTHALMIC SOLUTION Administer 1 drop into the right eye 2 times daily. TRELEGY ELLIPTA 100-62.5-25 MCG/ACT AEROSOL POWDER Take 1 puff by mouth daily. ALLERGIES Advair hfa [fluticasone-salmeterol], Amoxicillin, and Percocet [oxycodone-acetaminophen] FAMILY HISTORY Family History Problem Relation Name Age of Onset Melanoma Father SOCIAL HISTORY Social History Socioeconomic History Marital status: Tobacco Use Smoking status: Former Current packs/day: 0.50 Types: Cigarettes Smokeless tobacco: Never Substance and Sexual Activity Alcohol use: Not Currently Alcohol/week: 1.0 standard drink of alcohol Types: 1 Cans of beer per week Comment: occ Drug use: Never Social Drivers of Health Financial Resource Strain: Low Risk (06/20/2024) Received from [facility] Overall Financial Resource Strain (CARDIA) Difficulty of Paying Living Expenses: Not very hard Food Insecurity: No Food Insecurity (07/09/2024) Received from [facility] Hunger Vital Sign Worried About Running Out of Food in the Last Year: Never true Ran Out of Food in the Last Year: Never true Transportation Needs: No Transportation Needs (07/09/2024) Received from [facility] PRAPARE - Transportation Lack of Transportation (Medical): No Lack of Transportation (Non-Medical): No Physical Activity: Inactive (04/04/2024) Exercise Vital Sign Days of Exercise per Week: 0 days Minutes of Exercise per Session: 0 min Stress: No Stress Concern Present (06/19/2024) Received from [facility] [place] [facility] Occupational [facility] - Occupational Stress Questionnaire Feeling of Stress : Not at all Social Connections: Moderately Isolated (06/20/2024) Received from [facility] Social Connection and Isolation Panel [NHANES] Frequency of Communication with Friends and Family: More than three times a week Frequency of Social Gatherings with Friends and Family: Once a week Attends Advent Services: More than 4 times per year Active Member of Clubs or Organizations: No Attends Club or Organization Meetings: Never Marital Status: Intimate Partner Violence: Not At Risk (06/19/2024) Received from [facility] Domestic Abuse Assessment Do you feel safe in your relationships at home?: Yes Physical Abuse: Denies Verbal Abuse: Denies Housing Stability: Low Risk (07/09/2024) Received from [facility] Housing Stability Vital Sign Unable to Pay for Housing in the Last Year: No Number of Times Moved in the Last Year: 0 Homeless in the Last Year: No SCREENINGS PHYSICAL EXAM ED Triage Vitals [08/03/24 0224] Temp Heart Rate Resp BP 37.1 C (98.7 F) 83 18 129/88 SpO2 Temp Source Heart Rate Source Patient Position 94 % Oral Monitor -- BP Location FiO2 (%) Right arm -- Physical Exam BP 129/88 (BP Location: Right arm) Pulse 83 Temp 37.1 C (98.7 F) (Oral) Resp 18 Ht 1.626 m (5' 4") Wt 72.6 kg (160 lb) LMP (LMP Unknown) SpO2 94% BMI 27.46 kg/m Gen: Nontoxic appearing CV: RRR, no murmurs Pulm: CTA BL Abdomen: Soft, nontender, no distension, no rebound/guarding, no peritoneal signs and no masses. DIAGNOSTIC RESULTS RADIOLOGY (Per Emergency Physician): Chest x-ray without consolidation CT abdomen/pelvis without acute abdominal pathology. Noted to have consolidation left lower lobe Interpretation per the Radiologist below, if available at the time of this note: CT abdomen pelvis wo IV contrast Final Result 1. Extensive colonic diverticulosis without evidence of diverticulitis 2. Consolidation in the medial left lower lobe, possibly pneumonia 3. No bowel dilatation Report Dictated on Workstation: Mozy Electronically Signed By: Ming Fry MD Electronically Signed Date/Time: 08/03/2024 4:05 AM EST XR chest 1 view Final Result No acute abnormality Report Dictated on Workstation: Mozy Electronically Signed By: Ming Fry MD Electronically Signed Date/Time: 08/03/2024 3:33 AM EST LABS: Labs Reviewed CBC WITH AUTO DIFFERENTIAL - Abnormal Result Value Auto WBC 9.1 RBC 4.65 Hemoglobin 12.1 Hematocrit 38.7 MCV 83.2 MCH 26.0 MCHC 31.3 RDW 19.4 (*) Platelets 303 MPV 9.8 nRBC 0.0 COMPREHENSIVE METABOLIC PANEL - Abnormal SODIUM 139 POTASSIUM 5.9 (*) CHLORIDE 109 (*) CARBON DIOXIDE 21 (*) ANION GAP 9 UREA NITROGEN 34 (*) CREATININE 1.30 (*) GLUCOSE 103 CALCIUM 9.0 AST (SGOT) 36 (*) ALT 26 ALKALINE PHOSPHATASE 82 ALBUMIN 2.8 (*) BILIRUBIN, TOTAL 0.7 TOTAL PROTEIN 6.7 eGFR 40.6 (*) MANUAL DIFFERENTIAL - Abnormal Adjusted WBC 9.1 Neutrophils % 87 (*) Lymphocytes % 5 (*) Monocytes % 6 Eosinophils % 1 Basophils % 0 Unclassified Cells % 1.00 Absolute Neutrophil Count 7.9 (*) Lymphocytes Absolute 0.5 (*) Monocytes Absolute 0.5 Eosinophils Absolute 0.1 Basophils Absolute 0.0 Unclassified Cells, Abs. 0.1 RBC Morphology Normal WBC Morphology Normal PLT Morphology Normal Total Counted 100 Neutrophils Manual 87 Lymphocytes Manual 5 Monocytes Manual 6 Eosinophils Manual 1 Basophils Manual 0 Differential Method Value: Automated differential reported after manual slide review SARS-COV-2, FLU A/B, AND RSV COMBO - Normal SARS-CoV-2 Not Detected Respiratory Syncytial Virus Not Detected Influenza A Not Detected Influenza B Not Detected Narrative: Methodology: real-time, RT-PCR The SARS-CoV-2, Flu A/B, and RSV Combo assay is intended for in vitro diagnostic use under the FDA Emergency Use Authorization (EUA). This test has not been FDA cleared or approved. In compliance with this authorization, please visit www.fda.gov/media/122194/download or www.fda.gov/media/352897/download to access the applicable information sheets. LIPASE - Normal LIPASE 8 MAGNESIUM - Normal MAGNESIUM 1.9 Narrative: Higher values can be expected in females during menses. BMPI ISTAT (LAB ONLY) All other labs were within normal range or not returned as of this dictation. EMERGENCY DEPARTMENT COURSE and DIFFERENTIAL DIAGNOSIS/MDM: Vitals: Vitals: 08/03/24 0224 BP: 129/88 BP Location: Right arm Pulse: 83 Resp: 18 Temp: 37.1 C (98.7 F) TempSrc: Oral SpO2: 94% Weight: 72.6 kg (160 lb) Height: 1.626 m (5' 4") 83 y.o. female medical history of blindness, IBS with diarrhea, CKD 3, history of hysterectomy, atrial fibrillation/history of DVT on Eliquis who presents to the emergency department from [facility] for acute onset nausea/vomiting/diarrhea x 3 episodes that began 45 minutes prior to arrival. No blood in emesis or diarrhea. Given single dose of Zofran by fdc staff following first episode of emesis but subsequently soon after vomited prompting EMS call. On arrival, patient denying any acute complaints. Denies nausea or diarrhea. Denies abdominal pain. Denies chest pain or shortness of breath. States that she had felt well prior to going to bed. Confirmed that patient was at baseline and had no complaints prior to acute onset of symptoms 45 minutes prior to ED transport for [facility]dc. penitentiary reports a second resident with similar symptoms earlier today. No known flu or COVID exposures. Patient denying other flu or COVID symptoms such as headache, myalgias, fevers, congestion, cough. Considered viral syndrome, dyspepsia, bowel obstruction, pancreatitis, electrolyte abnormality. Exam benign. Abdomen soft and nontender. Patient denying any acute complaints. Given brief episode of vomiting and diarrhea with complete resolution of symptoms upon ED arrival with benign evaluation, will obtain labs with plan to defer imaging if labs unremarkable. Treated symptomatically with IV Pepcid and Zofran empirically pending results of labs. IV morphine ordered for chronic ocular pain for which patient is on prescribed oral narcotics. Abdominal labs with LORENZA and hemolyzed potassium. Repeat BMP ordered. Given noted productive cough it bedside, chest x-ray obtained to evaluate for aspiration pneumonia/pneumonitis. Patient with history of COPD. Chest x-ray as interpreted by myself without aspiration pneumonitis or pneumonia. Despite patient reporting no nausea, patient with multiple episodes of emesis prompting acquisition of CT abdomen/pelvis noncontrast. CT abdomen/pelvis as interpreted by myself with diverticulosis without diverticulitis. Patient noted to have left lower lobe consolidation on CT chest. Vital signs stable and patient is saturating at baseline on room air. Labs without leukocytosis. Given chronic lung disease with consolidation on chest CT concerning for aspiration pneumonitis versus developing aspiration pneumonia, will admit for temperature trending and interval chest x-ray to determine need for antibiotics. Patient poor historian and states that cough is at baseline. Patient admitted to medical service at [facility] under Dr. Parrish. ED Medications managed: Medications ondansetron (Zofran) injection 4 mg (4 mg IntraVENous Given 08/03/24 025) famotidine (Pepcid) 20 mg in sodium chloride (PF) 0.9 % 10 mL injection (20 mg IntraVENous Given 08/03/24 025) morphine injection 2 mg (2 mg IntraVENous Given 08/03/24 025) promethazine (Phenergan) injection 25 mg (25 mg IntraMUSCular Given 08/03/24 0406) FINAL IMPRESSION 1. Aspiration pneumonitis (CMS/HCC) ([facility]) 2. Vomiting and diarrhea 3. LORENZA (acute kidney injury) ([facility]) DISPOSITION Observation 08/03/2024 04:20:39 AM PATIENT REFERRED TO: No follow-up provider specified. DISCHARGE MEDICATIONS: New Prescriptions No medications on file (Comment: Please note this report has been produced using speech recognition software and may contain errors related to that system including errors in grammar, punctuation, and spelling, as well as words and phrases that may be inappropriate. If there are any questions or concerns please feel free to contact the dictating provider for clarification.) Mariana King DO (electronically signed) Emergency Medicine Provider Mariana King DO 08/03/24 0422 [facility] 08-01-2024 Instructions Savana Lopez MD - 08/01/2024 1:06 PM EST - Continue Pred forte 4x / day right eye - Stop Cipro - Stop Brimonidine - Continue erythromycin antibiotic ointment as needed - Continue Atropine daily RIGHT eye - Continue Timolol 2x / day RIGHT EYE documented in this encounter [facility] 08-01-2024 Note HNO ID: [id number] Author: SAVANA LOPEZ MD Service: ? Author Type: Physician Type: Progress Notes Filed: 08/01/2024 13:09 Note Text: POW #1 Choroidal drainage/PPV/EL/PFO/FAX/C3F8 (16%) RIGHT eye on 07/27/24 for choroidal hemorrhage and retinal detachment (Mammo/[facility]) - LP vision - IOP good - Full gas fill still; peripheral choroidals - hazy view but can see nerve and macula Plan = - Continue Pred QID OD - Stop Cipro - Stop Brimonidine - Continue antibiotic ointment as needed - Continue Atropine daily OD - Continue Timolol BID OD - Retinal detachment/endophthalmitis/gas bubble precautions discussed PMH: COPD, HLD, HTN, Afib (on apixaban), CKD 3, L retinal detachment, nicotine use, severe LE PAD, recurrent embolic events, 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), hx DVT s/p right venous thrombectomy, 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, right eye Exudative retinal detachment, right eye PCIOL Subluxation, right eye Course: - 06/10/24 presented to OSH with dizziness, dysarthria and dysphagia found to have acute infarcts in the left hippocampal head and the right cerebellar hemisphere - 06/19/24: Admitted to rehab center and discharged home 07/03/24, had significant right eye tearing but no pain or visual changes - 07/04/2024 noted blurriness in her vision, that subsequently slightly improved over the course of the day - 07/05/24 woke up with severe pain behind her right eye, complete loss of vision (seeing purple/red), swelling of her right eye with significant redness, nausea and vomiting - Presented to the ED, evaluated by ophthalmology (Dr. 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 Possible increased height maximum remains at 12:00 measuring 10.6 mm s/p drainage 07/12/24 (previously 10.0 mm) 2. Able to slightly assess for mobility today, only pockets were seen 3. SRF over choroidals in all quadrants and retina appears more off for 6:00 to 12:00 - B-scan OD 07/23/23 1. 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 Possible decrease in maximal height which remains at 12:00 measuring 10.0 mm today (s/p drainage 07/12/24) (previously 10.6 mm) 2. Able to slightly assess for mobility today, only pockets were seen 3. SRF over choroidals in all quadrants and retina appears more off but difficult to discern clock hour today - Post op Week 1 s/p choroidal drainage right eye on 07/13/24 for choroidal hemorrhage with repositioning of IOL - Took to OR for worsening pain and IOP; significant clotting; some heme drained but not much - Post-op with significantly improved pain but persistent choroidals Assessment: - 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 (SBP 199/99 at presentation to [facility]) and anticoagulation that led to angle closure and elevated IOP - Alternatively IOP change s/p LPI may have led to hemorrhagic choroidals but since pseudophakic, would be rare to have developed acute angle closure - Patient adamantly denies any trauma but did have significant eye tearing with rubbing of eye day prior to development of symptoms - POW1 s/p choroidal drainage right eye on 07/13/24 for choroidal hemorrhage with repositioning of IOL (Mammo/[facility]) - Today IOP low; from RD?? - [facility] LP, poor progrnosis - Difficult view posterior, could not visualize macula/nerve with persistent choroidals I have confirmed and edited as necessary the relevant ophthalmic history, ROS, reviewed the HPI and the neuro exam findings as obtained by others. I have seen and examined this patient. I have discussed the case and the management of this patient's care with the Resident, if applicable. I also have reviewed and agree with the assessment and plan as stated above and agree with all of its relevant components. [facility] 08-01-2024 History of Present illness Narrative POW #1 Choroidal drainage/PPV/EL/PFO/FAX/C3F8 (16%) RIGHT eye on 07/27/24 for choroidal hemorrhage and retinal detachment (Mammo/Luis Alberto) - LP vision - IOP good - Full gas fill still; peripheral choroidals - hazy view but can see nerve and macula Plan = - Continue Pred QID OD - Stop Cipro - Stop Brimonidine - Continue antibiotic ointment as needed - Continue Atropine daily OD - Continue Timolol BID OD - Retinal detachment/endophthalmitis/gas bubble precautions discussed PMH: COPD, HLD, HTN, Afib (on apixaban), CKD 3, L retinal detachment, nicotine use, severe LE PAD, recurrent embolic events, 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), hx DVT s/p right venous thrombectomy, 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, right eye Exudative retinal detachment, right eye PCIOL Subluxation, right eye Course: - 06/10/24 presented to OSH with dizziness, dysarthria and dysphagia found to have acute infarcts in the left hippocampal head and the right cerebellar hemisphere - 06/19/24: Admitted to rehab center and discharged home 07/03/24, had significant right eye tearing but no pain or visual changes - 07/04/2024 noted blurriness in her vision, that subsequently slightly improved over the course of the day - 07/05/24 woke up with severe pain behind her right eye, complete loss of vision (seeing purple/red), swelling of her right eye with significant redness, nausea and vomiting - Presented to the ED, evaluated by ophthalmology (Dr. 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 Possible increased height maximum remains at 12:00 measuring 10.6 mm s/p drainage 07/12/24 (previously 10.0 mm) 2. Able to slightly assess for mobility today, only pockets were seen 3. SRF over choroidals in all quadrants and retina appears more off for 6:00 to 12:00 - B-scan OD 07/23/23 1. 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 Possible decrease in maximal height which remains at 12:00 measuring 10.0 mm today (s/p drainage 07/12/24) (previously 10.6 mm) 2. Able to slightly assess for mobility today, only pockets were seen 3. SRF over choroidals in all quadrants and retina appears more off but difficult to discern clock hour today - Post op Week 1 s/p choroidal drainage right eye on 07/13/24 for choroidal hemorrhage with repositioning of IOL - Took to OR for worsening pain and IOP; significant clotting; some heme drained but not much - Post-op with significantly improved pain but persistent choroidals Assessment: - 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 (SBP 199/99 at presentation to [facility]) and anticoagulation that led to angle closure and elevated IOP - Alternatively IOP change s/p LPI may have led to hemorrhagic choroidals but since pseudophakic, would be rare to have developed acute angle closure - Patient adamantly denies any trauma but did have significant eye tearing with rubbing of eye day prior to development of symptoms - POW1 s/p choroidal drainage right eye on 07/13/24 for choroidal hemorrhage with repositioning of IOL (Mammo/Luis Alberto) - Today IOP low; from RD?? - [facility] LP, poor progrnosis - Difficult view posterior, could not visualize macula/nerve with persistent choroidals I have confirmed and edited as necessary the relevant ophthalmic history, ROS, reviewed the HPI and the neuro exam findings as obtained by others. I have seen and examined this patient. I have discussed the case and the management of this patient's care with the Resident, if applicable. I also have reviewed and agree with the assessment and plan as stated above and agree with all of its relevant components. documented in this encounter [facility] 07-30-2024 Note HNO ID: [id number] Author: JOHN PHELAN MD Service: ? Author Type: Fellow Type: Progress Notes Filed: 07/30/2024 08:03 Note Text: I have confirmed and edited as necessary the relevant HPI, ophthalmic history, ROS, and the neuro exam findings as obtained by others. I have discussed the case and the management of this patient's care with the Resident/Fellow, if applicable. I also have reviewed and agree with the assessment and plan as stated above and agree with all of its relevant components. [facility] 07-30-2024 Note HNO ID: [id number] Author: JOHN PHELAN MD Service: ? Author Type: Fellow Type: Progress Notes Filed: 07/30/2024 08:03 Note Text: I have confirmed and edited as necessary the relevant HPI, ophthalmic history, ROS, and the neuro exam findings as obtained by others. I have seen the patient and discussed the case and the management of this patient's care with the Resident/Fellow, if applicable. I also have reviewed and agree with the assessment and plan as stated above and agree with all of its relevant components. [facility] 07-27-2024 Instructions Nicolas Sahu MD - 07/27/2024 2:38 PM EST Images from the original note were not included. Instructions After Vitreoretinal Surgery It is very important to follow these instructions after vitreoretinal eye surgery to ensure its success. A responsible adult must drive you home after the surgery. You might feel well, but the medications given during the surgery might affect you for several hours. Do not drive, operate machinery, or participate in any activity that requires coordination or judgment for at least 24 hours after surgery. We recommend that a responsible adult stay with you for 24 hours after the surgery. Eye Protection - You should wear an eye patch during the day. You may wear you glasses during the day. Put the metal redmond shield on at bedtime only. Pain-relieving medications - You may take acetaminophen to relieve pain. Follow the instructions on the bottle. Do not use aspirin or products containing aspirin during the first month after surgery. Diet - If you feel sick to you stomach, drink only clear liquids. Clear liquids include: clear broth, tea, strained fruit juices, strained vegetable soup, black coffee, plain gelatin, and eric anderson. Eat a regular meal when you do not feel sick. Do not drink alcoholic beverages for 24 hours after the surgery. Position after surgery - You should stay upright, never on back, sleep in a recliner ideally. Eye medications - You will use the drops as follows starting tomorrow at 9am when you can remove your patch: Prednisilone (pink cap) 4x daily spread throughout the day Ciprofloxacin (flores cap) 4x daily Atropine (accredited legal secretary) 1x daily Continue timolol (yellow cap) 2x daily Leave a few minutes between each drop and use them throughout the day. How to give yourself eye drops or ointment Wash your hands with soap and warm water. Dry them with a clean towel. If you are putting in your own eye medicine, lie down or use a mirror. Ask someone to check that you are getting the medicine in your eye. Look up to the ceiling with both eyes. Pull the lower lid of your eye down with one hand. Hold the medicine bottle or tube in your other hand. (If necessary, rest part of your hand on your forehead to keep it steady). Place a drop of medicine or a small amount of ointment inside your lower lid. The tip of the medicine bottle or tube should not touch your eye. Close your eyes for a minute after putting in the medicine. If you are prescribed both eye drops and eye ointment, use the eye drops first. If you have more than one eye medicine to put in your eyes, wait about 5 minutes after the first medicine before putting the second medicine. Avoid the following activities for 2 weeks after surgery: Bending Swimming Heavy lifting Working in heidi places Strenuous exercise or activity Activities that might injure your eye Call your surgeon immediately if you experience: Increased or severe eye pain Bleeding from the eye Sudden decrease in vision or decreased ability to see light Discharge from the eye Any questions or problems Call your doctor immediately or go to the nearest emergency room if you experience: Nausea or vomiting that won't go away Chest pain Leg cramps A temperature above 101 F or 38.3 C Trouble breathing Contact Dr. Savana Lopez [phone] from 8am-5pm During non-business hours, please call [phone] or ext [phone] and ask for the eye doctor contract coordinator. documented in this encounter [facility] 07-27-2024 Note HNO ID: [id number] Author: NICOLAS SAHU MD Service: ? Author Type: Fellow Type: Progress Notes Filed: 07/30/2024 14:23 Note Text: Post-op Day #1 Choroidal drainage/PPV/EL/PFO/FAX/C3F8 (16%) right eye on 07/27/24 for choroidal hemorrhage and retinal detachment (Mammo/Luis Alberto) - Doing well - Bare [facility] and 10 IOP - exam significant for corneal edema, significant choroidals with some retina visible, mostly superonasal/central though could not clearly visualize macula/nerve - Not flat on back positioning reviewed - Prednisolone/Ciprofloxacin drops reviewed - Post-op precautions reviewed, including: Signs and symptoms of endophthalmitis, and retinal detachment warning signs reviewed, including increasing floaters, flashes or changes in peripheral vision. - Shield at bedtime reviewed Return 1 week as scheduled Nicolas Sahu MD Vitreoretinal Surgery Fellow [facility] 07-27-2024 History of Present illness Narrative Post-op Day #1 Choroidal drainage/PPV/EL/PFO/FAX/C3F8 (16%) right eye on 07/27/24 for choroidal hemorrhage and retinal detachment (Mammo/Luis Alberto) - Doing well - Bare HM VA and 10 IOP - exam significant for corneal edema, significant choroidals with some retina visible, mostly superonasal/central though could not clearly visualize macula/nerve - Not flat on back positioning reviewed - Prednisolone/Ciprofloxacin drops reviewed - Post-op precautions reviewed, including: Signs and symptoms of endophthalmitis, and retinal detachment warning signs reviewed, including increasing floaters, flashes or changes in peripheral vision. - Shield at bedtime reviewed Return 1 week as scheduled Nicolas Sahu MD Vitreoretinal Surgery Fellow documented in this encounter [facility] 07-27-2024 Note HNO ID: [id number] Author: MIKHAIL NICHOLS APRN.REVENUE FIELD AUDITOR Service: ? Author Type: Nurse Information Security Risk Analyst Type: Anesthesia Procedure Notes Filed: 07/27/2024 11:25 Note Text: ANESTHESIOLOGY PROCEDURE NOTE Airway General Information Procedure Start Time/Medication Administration: 07/27/2024 11:21 AM Procedure End Time: 07/27/2024 11:24 AM Staffing Anesthesiologist: Robinson Brunner MD REVENUE FIELD AUDITOR: Mikhail Nichols APRN.REVENUE FIELD AUDITOR Performed by: anesthesiologist and REVENUE FIELD AUDITOR Indications and Patient Condition Indications for airway management: anesthesia Preoxygenated: yes Patient position: sniffing Method: asleep Final Airway Details Final airway type: supraglottic airway Number of attempts at approach: 1 Final Supraglottic Airway: LMA Classic Size 4 Seal Adequate: yes Failed airway: no Unrecognized esophageal intubation: no SIGNATURE: Mikhail Nichols APRN.REVENUE FIELD AUDITOR PATIENT NAME: Mel Castillo DATE: July 27, 2024 TIME: 11:24 AM CSN: [id number] [facility] 07-24-2024 Note Date of Procedure 07/23/2024. Senior Net Developer Information Workers' Compensation Claims Supervisor: WESLEY. Start time: 10:44 AM. No view. In wheelchair. Unable to get low enough for photo in downgaze without discomfort. Notes Hazy view, VH; choroidals; possible RD ZEISS 07-24-2024 Note Date of Procedure 07/23/2024. Senior Net Developer Information STEWART Donovan CDMARVIN 07/23/2024 11:[address] Lopez. Notes Eye: OD From wheelchair. Best images possible. On very tender eye over lid 1. 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 Possible decrease in maximal height which remains at 12:00 measuring 10.0 mm today (s/p drainage 12/26/24) (previously 10.6 mm) 2. Able to slightly assess for mobility today, only pockets were seen 3. SRF over choroidals in all quadrants and retina appears more off but difficult to discern clock hour today due to multiple membranes noted [facility]EISS 07-23-2024 Instructions Savana Lopez MD - 07/23/2024 11:37 AM EST Continue oral prednisone 20mg - Decrease atropine daily right eye (accredited legal secretary) - Continue prednisolone QID right eye (pink cap) - Stop dorzolamide TID right eye (orange cap) - Stop Brimonidine TID right eye (brimonidine cap) - Continue Timolol BID right eye (yellow cap) - Stop Ciprofloxacin (flores cap) - OK to stop shield You are going to have surgery with Dr. Lopez It is essential that you have Pre-Admission Testing of your medical history and physical condition no more than 30 days before your surgery. My surgical services tech will be contacting you to schedule this appointment. Your exact time of surgery will not be determined until the day before surgery. My surgical services tech will call you the day before your surgery to advise you what time to arrive at the [facility] on the first floor at the [facility]. My surgical services tech is Gaston, her number is [phone] Please do no wear contact lenses. We request that you wear very light makeup or no makeup at all. You are to have nothing to eat or drink after midnight the night before surgery. The doctor performing your preoperative physical will determine the medications you should take the morning of surgery. If you usually take prescription medications in the morning, you may take this medication on the morning of surgery only with a sip of water (not a glass). Please do not chew any gum on the day of your surgery. If you are taking blood thinners, notify us immediately so that we may determine if your physician needs to alter the dose to make your surgery safe. Report to your doctor any change in your physical condition between the time you were scheduled for surgery and the date of surgery. Your surgery may need to be rescheduled if you have the flu or a severe cold. Please inform us if you experience any chest pain, heart problems or breathing difficulties prior to surgery. Please make sure you have arranged for a ride home on your surgical day. The day of surgery you will be sent home with a bag of eye drops and an instruction sheet. Bring everything with you to your appointment the next day. Do not remove your eye patch. Your eye patch will be removed the day after surgery at your post-operative day 1 appointment. You do not need to use any drops the night of surgery as your eye patch should still be in place. Dr. Lopez's retina fellow will see you the day after surgery in the morning. They will let you know exactly what time on the day of surgery when they meet you. Your appointment sheet may say "8 AM" but this is usually a placeholder and exact time in the morning will be given to you by the retina fellow. It will be at the [facility] on the 2nd floor. We will review all your instructions at your appointment the day after surgery. THE BELOW IS ONLY PERTINENT IF YOU HAVE DIABETES OR TAKE CERTAIN WEIGHT LOSS MEDS For Surgery Patients who are taking Medications for Diabetes and/or Weight Loss The two types of medications, GLP-1 agonists and SGLT2 inhibitors, can cause problems with surgery and anesthesia. If you take these medications, you will need to stop them before surgery. Please discuss this with your surgeon or with Regine Gan in the Pre-anesthesia Consultation Clinic ([phone]) to get instructions on their use before stopping them. GLP-1 agonists can cause your stomach to empty more slowly. If you stomach is not empty at the time of surgery, it increases the risk of vomiting during anesthesia and surgery can be dangerous. Usually, injectable GLP-1 agonists that are used weekly should be stopped at least 7 days prior to surgery. GLP-1 agonists that are taken orally should be stopped the day before surgery. If you do not stop taking these medications as directed, your surgery may be cancelled or delayed. Example of these medications include (but not limited to) the following: GLP-1 agonists Injectable Oral Dulaglutide (Trulicity ) Semaglutide (Rybelsus ) Exenatide (Byeta , Bydureon ) Liraglutide (Victoza , Saxenda ) Semaglutide (Ozempic , Wegovy ) Tirzepatide (Mounjaro , Zepbound ) SGLT-2 inhibitors can cause blood chemistry problems in patients who stop eating. Because surgery patients are asked to stop eating before surgery, you will need to stop taking these medications 3-4 days before surgery. SGLT2 Inhibitors include: Oral Bexagliflozin (Benzavvy ) Canagliflozin (Invokana ) Dapagliflozin (Farziga ) Empagliflozin (Jardiance ) Ertugliflozin (Steglatro ) If you have any questions regarding these presurgical instructions on how to take these medications, please call your surgeon's office or call Regine Gan or a Pre-Anesthesia Testing warehouse team member at [phone]. documented in this encounter [facility] 07-23-2024 Note HNO ID: [id number] Author: SAVANA LOPEZ MD Service: ? 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, right eye Exudative retinal detachment, right eye PCIOL Subluxation, right eye Course: - 06/10/24 presented to OSH with dizziness, dysarthria and dysphagia found to have acute infarcts in the left hippocampal head and the right cerebellar hemisphere - 06/19/24: Admitted to rehab center and discharged home 07/03/24, had significant right eye tearing but no pain or visual changes - 07/04/2024 noted blurriness in her vision, that subsequently slightly improved over the course of the day - 07/05/24 woke up with severe pain behind her right eye, complete loss of vision (seeing purple/red), swelling of her right eye with significant redness, nausea and vomiting - Presented to the ED, evaluated by ophthalmology (Dr. 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 Possible increased height maximum remains at 12:00 measuring 10.6 mm s/p drainage 07/12/24 (previously 10.0 mm) 2. Able to slightly assess for mobility today, only pockets were seen 3. SRF over choroidals in all quadrants and retina appears more off for 6:00 to 12:00 - B-scan OD 07/23/23 1. 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 Possible decrease in maximal height which remains at 12:00 measuring 10.0 mm today (s/p drainage 07/12/24) (previously 10.6 mm) 2. Able to slightly assess for mobility today, only pockets were seen 3. SRF over choroidals in all quadrants and retina appears more off but difficult to discern clock hour today - Post op Week 1 s/p choroidal drainage right eye on 07/13/24 for choroidal hemorrhage with repositioning of IOL - Took to OR for worsening pain and IOP; significant clotting; some heme drained but not much - Post-op with significantly improved pain but persistent choroidals Assessment: - 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 (SBP 199/99 at presentation to [place]) and anticoagulation that led to angle closure and elevated IOP - Alternatively IOP change s/p LPI may have led to hemorrhagic choroidals but since pseudophakic, would be rare to have developed acute angle closure - Patient adamantly denies any trauma but did have significant eye tearing with rubbing of eye day prior to development of symptoms - POW1 s/p choroidal drainage right eye on 07/13/24 for choroidal hemorrhage with repositioning of IOL (Mammo/Luis Alberto) - Today IOP low; from RD?? - [facility], poor progrnosis - Difficult view posterior, could not visualize macula/nerve with persistent choroidals Plan: - Much improved pain - Continue oral prednisone 20mg - Decrease atropine daily right eye - Continue prednisolone QID right eye - Stop dorzolamide TID right eye - Stop Brimonidine TID right eye - Continue Timolol BID right eye - Stop Ciprofloxacin - OK to stop shield - Ok to restart AC - discussed with primary team - Please ensure rapid treatment of any nausea, if patient vomits/significantly strains this could result in worsening of her choroidal hemorrhage - No positioning required - Schedule PPV/repeat choroidal drainage/MP/gas vs SO for possible RD Tuesday - General anesthesia - POD0 Call Fidel Castillo (Other) I have confirmed and edited as necessary the relevant ophthalmic history, ROS, reviewed the HPI and the neuro exam findings as obtained by others. I have seen and examined this patient. I have discussed the case and the management of this patient's care with the Resident, if applicable. I also have reviewed and agree with the assessment and plan as stated above and agree with all of its relevant components. 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, right eye Exudative retinal detachment, right eye PCIOL Subluxation, right eye Course: - 06/10/24 presented to OSH with dizziness, dysarthria and dysphagia found to have acute infarcts in the left hippocampal head and the right cerebellar hemisphere - 06/19/24: Admitted to rehab center and discharged home 07/03/24, had significant right eye tearing but no pain or visual changes - 07/04/2024 noted blurriness in her vision, that subsequently slightly improved over the course of the day - 07/05/24 woke up with severe pain behind her right eye, complete loss of vision (seeing purple/red), swelling of her right eye with significant redness, nausea and vomiting - Presented to the ED, evaluated by ophthalmology (Dr. 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 Possible increased height maximum remains at 12:00 measuring 10.6 mm s/p drainage 07/12/24 (previously 10.0 mm) 2. Able to slightly assess for mobility today, only pockets were seen 3. SRF over choroidals in all quadrants and retina appears more off for 6:00 to 12:00 - B-scan OD 07/23/23 1. 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 Possible decrease in maximal height which remains at 12:00 measuring 10.0 mm today (s/p drainage 07/12/24) (previously 10.6 mm) 2. Able to slightly assess for mobility today, only pockets were seen 3. SRF over choroidals in all quadrants and retina appears more off but difficult to discern clock hour today - Post op Week 1 s/p choroidal drainage right eye on 07/13/24 for choroidal hemorrhage with repositioning of IOL - Took to OR for worsening pain and IOP; significant clotting; some heme drained but not much - Post-op with significantly improved pain but persistent choroidals Assessment: - 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 (SBP 199/99 at presentation to [facility]) and anticoagulation that led to angle closure and elevated IOP - Alternatively IOP change s/p LPI may have led to hemorrhagic choroidals but since pseudophakic, would be rare to have developed acute angle closure - Patient adamantly denies any trauma but did have significant eye tearing with rubbing of eye day prior to development of symptoms - POW1 s/p choroidal drainage right eye on 07/13/24 for choroidal hemorrhage with repositioning of IOL (Mammo/Luis Alberto) - Today IOP low; from RD?? - [facility], poor progrnosis - Difficult view posterior, could not visualize macula/nerve with persistent choroidals Plan: - Much improved pain - Continue oral prednisone 20mg - Decrease atropine daily right eye - Continue prednisolone QID right eye - Stop dorzolamide TID right eye - Stop Brimonidine TID right eye - Continue Timolol BID right eye - Stop Ciprofloxacin - OK to stop shield - Ok to restart AC - discussed with primary team - Please ensure rapid treatment of any nausea, if patient vomits/significantly strains this could result in worsening of her choroidal hemorrhage - No positioning required - Schedule PPV/repeat choroidal drainage/MP/gas vs SO for possible RD Tuesday - General anesthesia - POD0 Call Fidel Castillo (Other) I have confirmed and edited as necessary the relevant ophthalmic history, ROS, reviewed the HPI and the neuro exam findings as obtained by others. I have seen and examined this patient. I have discussed the case and the management of this patient's care with the Resident, if applicable. I also have reviewed and agree with the assessment and plan as stated above and agree with all of its relevant components. documented in this encounter [facility] 07-18-2024 Note HNO ID: [id number] Author: JACI JUAREZ, RADHA Service: Nursing Author Type: Registered Nurse Type: Progress Notes Filed: 07/18/2024 14:08 Note Text: Report given to nurse at [facility]. Transport running behind schedule. [facility] 07-16-2024 Note HNO ID: [id number] Author: MICHAEL SOARES MD Service: Ophthalmology Author Type: Resident Type: Plan of Care Filed: 07/16/2024 21:02 Note Text: Patient evaluated today at [facility] by retina attending Dr. Lopez. Assessment/plan copied below for convenience, however please refer to outpatient encounter for full history, exam, and assessment/plan. 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, right eye Exudative retinal detachment, right eye PCIOL Subluxation, right eye Course: - 06/10/24 presented to OSH with dizziness, dysarthria and dysphagia found to have acute infarcts in the left hippocampal head and the right cerebellar hemisphere - 06/19/24: Admitted to rehab center and discharged home 07/03/24, had significant right eye tearing but no pain or visual changes - 07/04/2024 noted blurriness in her vision, that subsequently slightly improved over the course of the day - 07/05/24 woke up with severe pain behind her right eye, complete loss of vision (seeing purple/red), swelling of her right eye with significant redness, nausea and vomiting - Presented to the ED, evaluated by ophthalmology (Dr. 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, multiple peripheral iridotomy's performed, with subsequent improvement in intraocular pressure to 37 - Per patient, pain improved and vision improved following LPI - Next day 07/06/24, experienced worsening of pain and vision that has been constant since then - Patient denies any trauma to the eye, no recent falls or incidences where eye was hit - Called patients family spoke to daughter in law who confirms no apparent trauma -Documented optos and B-scan 07/09/24 showing 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) - Evaluated at [facility] 07/12/24 with intense nausea and multiple episodes of vomiting - IOP slightly elevated 31 - Repeat B scan 07/16/24 1. 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 Possible increased height maximum remains at 12:00 measuring 10.6 mm s/p drainage 07/12/24 (previously 10.0 mm) 2. Able to slightly assess for mobility today, only pockets were seen 3. SRF over choroidals in all quadrants and retina appears more off for 6:00 to 12:00 Assessment: - Challenging clinical picture - 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 (SBP 199/99 at presentation to [facility]) and anticoagulation that led to angle closure and elevated IOP - Alternatively IOP change s/p LPI may have led to hemorrhagic choroidals but since pseudophakic, would be rare to have developed acute angle closure - Patient adamantly denies any trauma but did have significant eye tearing with rubbing of eye day prior to development of symptoms - POD3 s/p choroidal drainage right eye on 07/13/24 for choroidal hemorrhage with repositioning of IOL (Mammo/Luis Alberto) - Today IOP 17, HM [facility] - Difficult view posterior, could not visualize macula/nerve with persistent choroidals - B-scan OD 07/16/24 with persistent 360 hemorrhagic choroidals, pockets of mobilization of fluid, more apparent serous RD from to 12 Plan: - Much improved pain - Continue oral prednisone 20mg - Decrease atropine daily right eye - Continue prednisolone QID right eye - Stop dorzolamide TID right eye - Continue Brimonidine TID right eye - Continue Timolol BID right eye - Continue Ciprofloxacin QID right eye 2 more days and then stop - OK to stop shield - Ok to restart AC - discussed with primary team - Please ensure rapid treatment of any nausea, if patient vomits/significantly strains this could result in worsening of her choroidal hemorrhage - No positioning required - Opacities mildly mobile on exam; not much but got some drainage 07/13/24 (1 week since onset); may require another surgery for more drainage once opacities more liquefied and PPV with 6 mm cannula - Unfortunately need to wait for more liquefaction; she does not need to be admitted for this but may need penitentiary facility due to limited vision in her monocular eye; she has a very poor prognosis; there is no guarantee surgery will improve her vision but need to wait for any possible surgery for more liquefaction; maybe could do 07/31/24? - I will see her in 1 week for repeat B-scan OD / Optos OD" [facility] 07-16-2024 Note HNO ID: [id number] Author: ALAINA TIPTON RN Service: ? Author Type: Registered Nurse Type: Progress Notes Filed: 07/16/2024 19:27 Note Text: At 15:00 PM, Per Doctor Josep, place connector to Call Light for the patient. Clip placed onto the Call Light for patient to reach. Sign placed onto the patient's door to set patient up to eat, and assist feed. Doctor Josep, on the division, and aware. [facility] 07-16-2024 Note HNO ID: [id number] Author: TRACEY NANCE RN Service: Care Management Author Type: Registered Nurse Type: Care Mgt Progress Note Filed: 07/16/2024 16:49 Note Text: CARE MANAGEMENT PROGRESS NOTE SERVICE DATE: 07/16/2024 SERVICE TIME: 1:04 PM LOS: 9 days Post-Acute Discharge Planning Patient Goal(s): Increase strength [place] of Choice Explained: Discharge Planning Participant(s): Patient/Family Comments: Anticipated # of Days Until Discharge: 0 Transport at Discharge: Needs Prior to Discharge: Needs Prior to Discharge: OT/PT Evaluation Post-Acute Discharge Plan: Discharge to [facility] per [facility]OC. Await updated PT for pre cert initiation. SIGNATURE: Tracey Nance RN PATIENT NAME: Mel Castillo DATE: July 16, 2024 TIME: 1:04 PM [facility] 07-16-2024 Note Date of Procedure 07/16/2024. Senior Net Developer Information Workers[employer] Compensation Claims Supervisor: Arin Vital. Start time: 8:56 AM. Stop time: 8:56 AM. Notes OD only; Hard view 360 hemorrhagic choroidals [facility] 07-16-2024 Note Date of Procedure 07/16/2024. Senior Net Developer Information STEWART Donovan 07/16/2024 9:34 AM . Notes Interpretation of Ultrasound: ( B-Scan) Eye: OD From wheelchair. Best images possible. On very tender eye over lid 1. 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 Possible increased height maximum remains at 12:00 measuring 10.6 mm s/p drainage 07/12/24 (previously 10.0 mm) 2. Able to slightly assess for mobility today, only pockets were seen 3. 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, right eye Exudative retinal detachment, right eye PCIOL Subluxation, right eye Course: - 06/10/24 presented to OSH with dizziness, dysarthria and dysphagia found to have acute infarcts in the left hippocampal head and the right cerebellar hemisphere - 06/19/24: Admitted to rehab center and discharged home 07/03/24, had significant right eye tearing but no pain or visual changes - 07/04/2024 noted blurriness in her vision, that subsequently slightly improved over the course of the day - 07/05/24 woke up with severe pain behind her right eye, complete loss of vision (seeing purple/red), swelling of her right eye with significant redness, nausea and vomiting - Presented to the ED, evaluated by ophthalmology (Dr. 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, multiple peripheral iridotomy's performed, with subsequent improvement in intraocular pressure to 37 - Per patient, pain improved and vision improved following LPI - Next day 07/06/24, experienced worsening of pain and vision that has been constant since then - Patient denies any trauma to the eye, no recent falls or incidences where eye was hit - Called patients family spoke to daughter in law who confirms no apparent trauma -Documented optos and B-scan 07/09/24 showing 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) - Evaluated at [facility] 07/12/24 with intense nausea and multiple episodes of vomiting - IOP slightly elevated 31 - Repeat B scan 07/16/24 1. 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 Possible increased height maximum remains at 12:00 measuring 10.6 mm s/p drainage 07/12/24 (previously 10.0 mm) 2. Able to slightly assess for mobility today, only pockets were seen 3. SRF over choroidals in all quadrants and retina appears more off for 6:00 to 12:00 Assessment: - Challenging clinical picture - 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 (SBP 199/99 at presentation to [facility]) and anticoagulation that led to angle closure and elevated IOP - Alternatively IOP change s/p LPI may have led to hemorrhagic choroidals but since pseudophakic, would be rare to have developed acute angle closure - Patient adamantly denies any trauma but did have significant eye tearing with rubbing of eye day prior to development of symptoms - POD3 s/p choroidal drainage right eye on 07/13/24 for choroidal hemorrhage with repositioning of IOL (Mammo/Luis Alberto) - Today IOP 17, [facility] - Difficult view posterior, could not visualize macula/nerve with persistent choroidals - B-scan OD 07/16/24 with persistent 360 hemorrhagic choroidals, pockets of mobilization of fluid, more apparent serous RD from 6 to 12 Plan: - Much improved pain - Continue oral prednisone 20mg - Decrease atropine daily right eye - Continue prednisolone QID right eye - Stop dorzolamide TID right eye - Continue Brimonidine TID right eye - Continue Timolol BID right eye - Continue Ciprofloxacin QID right eye 2 more days and then stop - OK to stop shield - Ok to restart AC - discussed with primary team - Please ensure rapid treatment of any nausea, if patient vomits/significantly strains this could result in worsening of her choroidal hemorrhage - No positioning required - Opacities mildly mobile on exam; not much but got some drainage 07/13/24 (1 week since onset); may require another surgery for more drainage once opacities more liquefied and PPV with 6 mm cannula - Unfortunately need to wait for more liquefaction; she does not need to be admitted for this but may need penitentiary facility due to limited vision in her monocular eye; she has a very poor prognosis; there is no guarantee surgery will improve her vision but need to wait for any possible surgery for more liquefaction; maybe could do 07/31/24? - I will see her in 1 week for repeat B-scan OD / Optos OD I have confirmed and edited as necessary the relevant ophthalmic history, ROS, reviewed the HPI and the neuro exam findings as obtained by others. I have seen and examined this patient. I have discussed the case and the management of this patient's care with the Resident, if applicable. I also have reviewed and agree with the assessment and plan as stated above and agree with all of its relevant components. documented in this encounter [facility] 07-16-2024 Note HNO ID: [id number] Author: SAVANA LOPEZ MD Service: ? 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, right eye Exudative retinal detachment, right eye PCIOL Subluxation, right eye Course: - 06/10/24 presented to OSH with dizziness, dysarthria and dysphagia found to have acute infarcts in the left hippocampal head and the right cerebellar hemisphere - 06/19/24: Admitted to rehab center and discharged home 07/03/24, had significant right eye tearing but no pain or visual changes - 07/04/2024 noted blurriness in her vision, that subsequently slightly improved over the course of the day - 07/05/24 woke up with severe pain behind her right eye, complete loss of vision (seeing purple/red), swelling of her right eye with significant redness, nausea and vomiting - Presented to the ED, evaluated by ophthalmology (Dr. 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, multiple peripheral iridotomy's performed, with subsequent improvement in intraocular pressure to 37 - Per patient, pain improved and vision improved following LPI - Next day 07/06/24, experienced worsening of pain and vision that has been constant since then - Patient denies any trauma to the eye, no recent falls or incidences where eye was hit - Called patients family spoke to daughter in law who confirms no apparent trauma -Documented optos and B-scan 07/09/24 showing 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) - Evaluated at [facility] 07/12/24 with intense nausea and multiple episodes of vomiting - IOP slightly elevated 31 - Repeat B scan 07/16/24 1. 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 Possible increased height maximum remains at 12:00 measuring 10.6 mm s/p drainage 07/12/24 (previously 10.0 mm) 2. Able to slightly assess for mobility today, only pockets were seen 3. SRF over choroidals in all quadrants and retina appears more off for 6:00 to 12:00 Assessment: - Challenging clinical picture - 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 (SBP 199/99 at presentation to [facility]) and anticoagulation that led to angle closure and elevated IOP - Alternatively IOP change s/p LPI may have led to hemorrhagic choroidals but since pseudophakic, would be rare to have developed acute angle closure - Patient adamantly denies any trauma but did have significant eye tearing with rubbing of eye day prior to development of symptoms - POD3 s/p choroidal drainage right eye on 07/13/24 for choroidal hemorrhage with repositioning of IOL (Mammo/Luis Alberto) - Today IOP 17, HM [facility] - Difficult view posterior, could not visualize macula/nerve with persistent choroidals - B-scan OD 07/16/24 with persistent 360 hemorrhagic choroidals, pockets of mobilization of fluid, more apparent serous RD from 6 to 12 Plan: - Much improved pain - Continue oral prednisone 20mg - Decrease atropine daily right eye - Continue prednisolone QID right eye - Stop dorzolamide TID right eye - Continue Brimonidine TID right eye - Continue Timolol BID right eye - Continue Ciprofloxacin QID right eye 2 more days and then stop - OK to stop shield - Ok to restart AC - discussed with primary team - Please ensure rapid treatment of any nausea, if patient vomits/significantly strains this could result in worsening of her choroidal hemorrhage - No positioning required - Opacities mildly mobile on exam; not much but got some drainage 07/13/24 (1 week since onset); may require another surgery for more drainage once opacities more liquefied and PPV with 6 mm cannula - Unfortunately need to wait for more liquefaction; she does not need to be admitted for this but may need penitentiary facility due to limited vision in her monocular eye; she has a very poor prognosis; there is no guarantee surgery will improve her vision but need to wait for any possible surgery for more liquefaction; maybe could do 07/31/24? - I will see her in 1 week for repeat B-scan OD / Optos OD I have confirmed and edited as necessary the relevant ophthalmic history, ROS, reviewed the HPI and the neuro exam findings as obtained by others. I have seen and examined this patient. I have discussed the case and the management of this patient's care with the Resident, if applicable. I also have reviewed and agree with the assessment and plan as stated above and agree with all of its relev (more content not included)... [facility] 07-16-2024 Note HNO ID: [id number] Author: BRIANA PRITCHARD MD Service: General Internal Medicine Author Type: Physician Type: Progress Notes Filed: 07/16/2024 14:26 Note Text: Internal Medicine - Dae Chaudhry Progress Note Patient Name: Mel Castillo Patient Location: [place] [id number] Admission Date: 07/07/2024 Length of Stay: 9 Primary Service: DAE Chaudhry Staff: Briana Pritchard MD Primary Service: Dae Chaudhry INTERVAL HISTORY: - No acute events overnight. Bradycardic to 50s overnight but this AM HDS and afebrile - This AM seen by ophthalmology at [facility] appointment Objective MEDICATIONS: Current Facility-Administered Medications Medication Dose Route Frequency NaCl 0.9% iv flush bag 20 mL INTRAVENOUS PRN polyethylene glycol 3350 17 g packet 17 g ORAL DAILY PRN atorvastatin 80 mg tab(s) (LIPITOR) 80 mg ORAL AT BEDTIME albuterol HFA 90 mcg/actuation 2 Puff (PROVENTIL HFA, VENTOLIN HFA) 2 Puff INHALATION q [address] 40 mg tab(s) (PROTONIX) 40 mg ORAL BID AC (0600/1600) acetaminophen 650 mg tab(s) (TYLENOL) 650 mg ORAL q 6 H lidocaine 4 % 1 Patch (SALONPAS) 1 Patch TRANSDERMAL DAILY ascorbic acid (vitamin C) 500 mg tab(s) (VITAMIN C) 500 mg ORAL TID mometasone 220 mcg/ actuation (14) 1 Puff inhaler (ASMANEX) 1 Puff INHALATION DAILY And tiotropium 2.5 mcg - olodaterol 2.5 mcg inhaler (STIOLTO RESPIMAT) 2 Puff INHALATION DAILY lidocaine patch - REMOVE OTHER AT BEDTIME And lidocaine - VERIFY PATCH OTHER q 8 H atropine 1 % 1 Drop 1 Drop RIGHT EYE BID HYDROmorphone 0.2 mg injection (DILAUDID) 0.2 mg INTRAVENOUS q 2 H PRN dorzolamide 2 % 1 Drop (TRUSOPT) 1 Drop RIGHT EYE BID prednisoLONE acetate 1 % 1 Drop (PRED FORTE) 1 Drop RIGHT EYE QID metoprolol succinate ER 25 mg tab(s) (TOPROL XL) 25 mg ORAL DAILY predniSONE 20 mg tab(s) (DELTASONE) 20 mg ORAL/FEEDING TUBE DAILY HYDROmorphone 1 mg tab(s) (DILAUDID) 1 mg ORAL q 4 H PRN lisinopril 40 mg tab(s) (ZESTRIL) 40 mg ORAL DAILY brimonidine 0.2 % 1 Drop (ALPHAGAN) 1 Drop RIGHT EYE TID timolol maleate 0.5 % 1 Drop (TIMOPTIC) 1 Drop RIGHT EYE BID sodium chloride 0.9 % (flush) 2-10 mL (BD POSIFLUSH) 2-10 mL INTRAVENOUS DIRECTED PRN And perflutren lipid microspheres 1.1 mg/mL 1.3 mL injection (DEFINITY) 1.3 mL INTRAVENOUS DIRECTED PRN ondansetron (PF) 4 mg injection (ZOFRAN) 4 mg INTRAVENOUS q 6 H PRN ciprofloxacin HCl 0.3 % 2 Drop (CILOXAN) 2 Drop RIGHT EYE QID polyvinyl alcohol 1.4 % 2 Drop (LIQUIFILM TEARS) 2 Drop RIGHT EYE 5X/DAY enoxaparin 70 mg injection (LOVENOX) 1 mg/kg/dose (Order-Specific) SUBCUTANEOUS q 12 HR ALLERGIES: Ampicillin and Percocet [Oxycodone-Acetaminophen] PHYSICAL EXAM: Vital Signs (last filed) Range in last 24h Temp: 36.6 ?C (97.9 ?F) (07/16/24422) Temp Min: 36.6 ?C (97.9 ?F) Max: 36.9 ?C (98.4 ?F) Pulse: (!) 59 (07/16/24422) Pulse Min: 59 Max: 90 Resp: 17 (07/16/24422) Resp Min: 15 Max: 18 BP: 151/64 (07/16/24422) BP Min: 113/54 Max: 151/64 MAP Non Invasive (Mean Arterial Pressure): 86 (07/16/24422) MAP Non Invasive (Mean Arterial Pressure) Min: 62 Max: 86 No data recorded SpO2: 99 % (07/16/24422) SpO2 Min: 95 % Max: 99 % Pain Level: 8 (07/15/242132) Physical Exam not performed this AM as patient away from room. Lines, Drains, and Airways Line Duration Peripheral 07/13/24 1458 Left Antecubital 24 Gauge 2 days Drain Duration External Collection Device 07/15/24 1000 [facility] <1 day Intake/Output 07/12/24 0700 - 07/13/24 0659 07/13/24 0700 - 07/14/24 0659 07/14/24 0700 - 07/15/24 0659 07/15/24 0700 - 07/16/24 0659 Intake (ml) 675 200 0 480 Output (ml) -- 0 -- -- Net (ml) 675 200 0 480 Last Weight: 68.9 kg (152 lb) (07/15/241745) Admit Weight: 68.9 kg (152 lb) (07/15/24 174) LABS: CBC: Recent Labs 07/16/24 0544 07/15/24 0400 07/14/24 0546 07/13/24 0652 07/12/24 0538 07/11/24 0707 07/10/24 0451 07/09/24 1349 WBC 11.15* 10.20 11.07* 10.74 10.07 8.32 6.35 8.22 HB 10.3* 10.7* 10.7* 10.8* 10.6* 10.5* 9.9* 10.5* HCT 33.2* 34.4* 33.8* 34.5* 34.7* 32.3* 31.7* 33.9* PLT 348 386 345 334 301 289 336 346 MCV 82.4 84.1 83.5 83.3 86.3 83.0 83.2 86.0 RDWCV 17.8* 17.8* 17.9* 17.6* 17.8* 17.6* 17.5* 17.7* BMP: Recent Labs 07/15/24 0400 07/14/24 0546 07/13/24 0652 07/12/24 0538 07/11/24 0707 07/10/24 0451 07/09/24 1349 GLUC 93 131* 103* 100* 98 102* 158* NA 137 134* 137 136 137 138 136 K 4.3 4.1 4.2 4.0 3.6* 3.9 4.1 CHLOR 101 98 100 101 103 104 103 CO2 24 22 27 21* 23 22 22 ANION 12 14 10 14 11 12 11 BUN 19 19 12 12 15 21 18 CREAT 0.96 1.01* 0.92 0.81 0.91 0.93 0.94 CHEM: Recent Labs 07/15/24 0400 07/14/24 0546 07/13/24 0652 07/12/24 0538 07/11/24 0707 07/10/24 0451 07/09/24 1349 ALB 3.5* 3.5* 3.5* 3.4* 3.4* 3.5* 3.6* CA 9.1 9.1 9.3 9.3 8.9 9.0 8.8 ASSESSMENT AND PLAN: Mel Castillo is a 83 year old female with a PMH of COPD (more content not included)... 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, right eye Inferior exudative retinal detachment, right eye PCIOL Dislocation, right eye -see prior notes for course Assessment: - Challenging clinical picture - 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 (SBP 199/99 at presentation to [facility]) that caused angle closure and elevated IOP which lead to her initial presentation - Alternatively should pressure differential following LPI have induced hemorrhagic choroidals, additionally no explanation for acute closure as initial pathology given pseudophakic lens status - Patient adamantly denies any trauma but did have significant eye tearing with rubbing of eye day prior to development of symptoms - Cautiously evaluated for open globe given bullous CARLOS, small inferior hyphema, and IOL dislocation however if IOP at presentation was 80 and there is no history of trauma, then lower suspicion - Eye is likely still in pain from hemorrhagic choroidals but much improved after drainage - POD2 s/p choroidal drainage right eye on 07/13/24 for choroidal hemorrhage (Chelita/Luis Alberto) - Doing better - IOP 18, HM [facility] - Difficult view posterior, could not visualize macula/nerve but choroidals seem less prominent superiorly and nasal than pre-op Plan - Continue oral prednisone 20mg - Continue atropine BID right eye - Continue prednisolone QID right eye - Continue dorzolamide TID right eye (ordered as BID okay for now given pressure is controlled) - Continue Brimonidine TID right eye - Continue Timolol BID right eye - Continue Ciprofloxacin QID right eye -Start artifical tears 5x daily right eye (ordered) Be sure to place tears first prior to the other drops - Please tape shield over eye at bedtime/when patient sleeping - Ok to restart AC - Please ensure rapid treatment of any nausea, if patient vomits/significantly strains this could result in worsening of her choroidal hemorrhage - Please keep admitted for return visit with Dr. Lopez coming Tuesday, scheduling request sent - No positioning required PLEASE ENSURE TRANSPORTATION ORDER IS STILL ACTIVE TUESDAY MORNING TO BRING PATIENT DOWN FOR FOLLOW UP AT [facility] - Post-op precautions reviewed, including: Signs and symptoms of endophthalmitis, and retinal detachment warning signs reviewed, including increasing floaters, flashes or changes in peripheral vision. [facility] 07-15-2024 Note HNO ID: [id number] Author: BRIANA PRITCHARD MD Service: General Internal Medicine Author Type: Physician Type: Progress Notes Filed: 07/15/2024 12:59 Note Text: Internal Medicine - Dae Chaudhry Progress Note Patient Name: Mel Castillo Patient Location: [place] [address] Admission Date: 07/07/2024 Length of Stay: 8 Primary Service: DAE Chaudhry Staff: Briana Pritchard MD Primary Service: Dae Chaudhry INTERVAL HISTORY: - NAEO. - Afebrile. VSS. - This AM: Unable to see objects, but able to see light/dark. Pain is significantly improved after procedure. Now 09/24. - Denies nausea/vomiting. Reports nausea only seems to happen with oxycodone. Objective MEDICATIONS: Current Facility-Administered Medications Medication Dose Route Frequency NaCl 0.9% iv flush bag 20 mL INTRAVENOUS PRN polyethylene glycol 3350 17 g packet 17 g ORAL DAILY PRN atorvastatin 80 mg tab(s) (LIPITOR) 80 mg ORAL AT BEDTIME albuterol HFA 90 mcg/actuation 2 Puff (PROVENTIL HFA, VENTOLIN HFA) 2 Puff INHALATION q [address] 40 mg tab(s) (PROTONIX) 40 mg ORAL BID AC (0600/1600) acetaminophen 650 mg tab(s) (TYLENOL) 650 mg ORAL q 6 H lidocaine 4 % 1 Patch (SALONPAS) 1 Patch TRANSDERMAL DAILY ascorbic acid (vitamin C) 500 mg tab(s) (VITAMIN C) 500 mg ORAL TID mometasone 220 mcg/ actuation (14) 1 Puff inhaler (ASMANEX) 1 Puff INHALATION DAILY And tiotropium 2.5 mcg - olodaterol 2.5 mcg inhaler (STIOLTO RESPIMAT) 2 Puff INHALATION DAILY lidocaine patch - REMOVE OTHER AT BEDTIME And lidocaine - VERIFY PATCH OTHER q 8 H atropine 1 % 1 Drop 1 Drop RIGHT EYE BID HYDROmorphone 0.2 mg injection (DILAUDID) 0.2 mg INTRAVENOUS q 2 H PRN dorzolamide 2 % 1 Drop (TRUSOPT) 1 Drop RIGHT EYE BID prednisoLONE acetate 1 % 1 Drop (PRED FORTE) 1 Drop RIGHT EYE QID metoprolol succinate ER 25 mg tab(s) (TOPROL XL) 25 mg ORAL DAILY polyvinyl alcohol 1.4 % 2 Drop (LIQUIFILM TEARS) 2 Drop RIGHT EYE PRN predniSONE 20 mg tab(s) (DELTASONE) 20 mg ORAL/FEEDING TUBE DAILY HYDROmorphone 1 mg tab(s) (DILAUDID) 1 mg ORAL q 4 H PRN lisinopril 40 mg tab(s) (ZESTRIL) 40 mg ORAL DAILY brimonidine 0.2 % 1 Drop (ALPHAGAN) 1 Drop RIGHT EYE TID timolol maleate 0.5 % 1 Drop (TIMOPTIC) 1 Drop RIGHT EYE BID sodium chloride 0.9 % (flush) 2-10 mL (BD POSIFLUSH) 2-10 mL INTRAVENOUS DIRECTED PRN And perflutren lipid microspheres 1.1 mg/mL 1.3 mL injection (DEFINITY) 1.3 mL INTRAVENOUS DIRECTED PRN ondansetron (PF) 4 mg injection (ZOFRAN) 4 mg INTRAVENOUS q 6 H PRN enoxaparin 70 mg injection (LOVENOX) 1 mg/kg/dose (Order-Specific) SUBCUTANEOUS q 12 HR ciprofloxacin HCl 0.3 % 2 Drop (CILOXAN) 2 Drop RIGHT EYE QID ALLERGIES: Ampicillin and Percocet [Oxycodone-Acetaminophen] PHYSICAL EXAM: Vital Signs (last filed) Range in last 24h Temp: 36.7 ?C (98.1 ?F) (07/15/24432) Temp Min: 36.6 ?C (97.9 ?F) Max: 36.9 ?C (98.4 ?F) Pulse: 69 (07/15/24432) Pulse Min: 59 Max: 85 Resp: 17 (07/15/24432) Resp Min: 17 Max: 22 BP: 150/69 (07/15/24432) BP Min: 131/69 Max: 160/58 MAP Non Invasive (Mean Arterial Pressure): 92 (07/15/24432) MAP Non Invasive (Mean Arterial Pressure) Min: 66 Max: 92 No data recorded SpO2: 98 % (07/15/24432) SpO2 Min: 95 % Max: 99 % Pain Level: 7 (07/15/24 0045) GENERAL: No acute distress, alert and oriented to person place and time HEENT: Normocephalic atraumatic, R eye swelling and injected conjunctiva. Right pupil is not reactive to light. EOMI. Unable to see objects. Can see light/dark. LUNG: Talking comfortably on room air. EXTREMITIES: No pitting edema bilaterally. Lines, Drains, and Airways Line Duration Peripheral 07/13/24 1458 Left Antecubital 24 Gauge 1 day Intake/Output 07/11/24 0700 - 07/12/24 0659 07/12/24 0700 - 07/13/24 0659 07/13/24 0700 - 07/14/24 0659 07/14/24 0700 - 07/15/24 0659 Intake (ml) 360 675 200 0 Output (ml) -- -- 0 -- Net (ml) 360 675 200 0 Last Admit LABS: CBC: Recent Labs 07/15/24 0400 07/14/24 0546 07/13/24 0652 07/12/24 0538 07/11/24 0707 07/10/24 0451 07/09/24 1349 WBC 10.20 11.07* 10.74 10.07 8.32 6.35 8.22 HB 10.7* 10.7* 10.8* 10.6* 10.5* 9.9* 10.5* HCT 34.4* 33.8* 34.5* 34.7* 32.3* 31.7* 33.9* PLT 386 345 334 301 289 336 346 MCV 84.1 83.5 83.3 86.3 83.0 83.2 86.0 RDWCV 17.8* 17.9* 17.6* 17.8* 17.6* 17.5* 17.7* BMP: Recent Labs 07/15/24 0400 07/14/24 0546 07/13/24 0652 07/12/24 0538 07/11/24 0707 07/10/24 0451 07/09/24 1349 GLUC 93 131* 103* 100* 98 102* 158* NA 137 134* 137 136 137 138 136 K 4.3 4.1 4.2 4.0 3.6* 3.9 4.1 CHLOR 101 98 100 101 103 104 103 CO2 24 22 27 21* 23 22 22 ANION 12 14 10 14 11 12 11 BUN 19 19 12 12 15 21 18 CREAT 0.96 1.01* 0.92 0.81 0.91 0.93 0.94 CHEM: Recent Labs 07/15/24 0400 07/14/24 0546 07/13/24 0652 07/12/24 0538 07/11/24 0707 07/10/24 0451 07/09/24 1349 ALB 3.5* 3.5* 3.5* 3.4* 3.4* 3.5* 3.6* CA 9.1 9.1 9.3 9.3 (more content not included)... [facility] 07-14-2024 Note HNO ID: [id number] Author: BRIANA PRITCHARD MD Service: Hospital Medicine Author Type: Physician Type: Progress Notes Filed: 07/14/2024 13:37 Note Text: Internal Medicine - Dae Chaudhry Progress Note Patient Name: Mel Castillo Patient Location: [id number] Admission Date: 07/07/2024 Length of Stay: 7 Primary Service: DAE Chaudhry Staff: Briana Pritchard MD Primary Service: Dae Chaudhry INTERVAL HISTORY: - NAEO. - Afebrile. VSS. - This AM: Still unable to see objects. Still complaining of right eye pain (stable). Requiring less dilaudid - nausea controlled Objective MEDICATIONS: Current Facility-Administered Medications Medication Dose Route Frequency NaCl 0.9% iv flush bag 20 mL INTRAVENOUS PRN polyethylene glycol 3350 17 g packet 17 g ORAL DAILY PRN atorvastatin 80 mg tab(s) (LIPITOR) 80 mg ORAL AT BEDTIME albuterol HFA 90 mcg/actuation 2 Puff (PROVENTIL HFA, VENTOLIN HFA) 2 Puff INHALATION q [address] 40 mg tab(s) (PROTONIX) 40 mg ORAL BID AC (0600/1600) acetaminophen 650 mg tab(s) (TYLENOL) 650 mg ORAL q 6 H lidocaine 4 % 1 Patch (SALONPAS) 1 Patch TRANSDERMAL DAILY ascorbic acid (vitamin C) 500 mg tab(s) (VITAMIN C) 500 mg ORAL TID mometasone 220 mcg/ actuation (14) 1 Puff inhaler (ASMANEX) 1 Puff INHALATION DAILY And tiotropium 2.5 mcg - olodaterol 2.5 mcg inhaler (STIOLTO RESPIMAT) 2 Puff INHALATION DAILY lidocaine patch - REMOVE OTHER AT BEDTIME And lidocaine - VERIFY PATCH OTHER q 8 H atropine 1 % 1 Drop 1 Drop RIGHT EYE BID HYDROmorphone 0.2 mg injection (DILAUDID) 0.2 mg INTRAVENOUS q 2 H PRN dorzolamide 2 % 1 Drop (TRUSOPT) 1 Drop RIGHT EYE BID prednisoLONE acetate 1 % 1 Drop (PRED FORTE) 1 Drop RIGHT EYE QID metoprolol succinate ER 25 mg tab(s) (TOPROL XL) 25 mg ORAL DAILY polyvinyl alcohol 1.4 % 2 Drop (LIQUIFILM TEARS) 2 Drop RIGHT EYE PRN predniSONE 20 mg tab(s) (DELTASONE) 20 mg ORAL/FEEDING TUBE DAILY HYDROmorphone 1 mg tab(s) (DILAUDID) 1 mg ORAL q 4 H PRN lisinopril 40 mg tab(s) (ZESTRIL) 40 mg ORAL DAILY brimonidine 0.2 % 1 Drop (ALPHAGAN) 1 Drop RIGHT EYE TID timolol maleate 0.5 % 1 Drop (TIMOPTIC) 1 Drop RIGHT EYE BID sodium chloride 0.9 % (flush) 2-10 mL (BD POSIFLUSH) 2-10 mL INTRAVENOUS DIRECTED PRN And perflutren lipid microspheres 1.1 mg/mL 1.3 mL injection (DEFINITY) 1.3 mL INTRAVENOUS DIRECTED PRN ondansetron (PF) 4 mg injection (ZOFRAN) 4 mg INTRAVENOUS q 6 H PRN enoxaparin 70 mg injection (LOVENOX) 1 mg/kg/dose (Order-Specific) SUBCUTANEOUS q 12 HR ciprofloxacin HCl 0.3 % 2 Drop (CILOXAN) 2 Drop RIGHT EYE QID ALLERGIES: Ampicillin and Percocet [Oxycodone-Acetaminophen] PHYSICAL EXAM: Vital Signs (last filed) Range in last 24h Temp: 36.6 ?C (97.9 ?F) (07/14/24 0942) Temp Min: 36.3 ?C (97.3 ?F) Max: 36.8 ?C (98.2 ?F) Pulse: 78 (07/14/24 09) Pulse Min: 59 Max: 115 Resp: 18 (07/14/24941) Resp Min: 15 Max: 18 BP: (!) 143/44 (07/14/24 09) BP Min: 82/50 Max: 167/84 MAP Non Invasive (Mean Arterial Pressure): 67 (07/14/24 09) MAP Non Invasive (Mean Arterial Pressure) Min: 62 Max: 120 No data recorded SpO2: 97 % (07/14/24 1030) SpO2 Min: 79 % Max: 100 % Pain Level: 7 (07/14/24 1030) GENERAL: No acute distress, alert and oriented to person place and time HEENT: Normocephalic atraumatic, R eye swelling and injected conjunctiva. Right pupil is not reactive to light. EOMI. No longer able to see light and objects. LUNG: Talking comfortably on room air. EXTREMITIES: No pitting edema bilaterally. Lines, Drains, and Airways Line Duration Peripheral 07/13/24 1458 Left Antecubital 24 Gauge <1 day Intake/Output 07/10/24 0700 - 07/11/24 0659 07/11/24 0700 - 07/12/24 0659 07/12/24 0700 - 07/13/24 0659 07/13/24 0700 - 07/14/24 0659 Intake (ml) 480 360 675 200 Output (ml) -- -- -- 0 Net (ml) 480 360 675 200 Last Admit LABS: CBC: Recent Labs 07/14/24 0546 07/13/24 0652 07/12/24 0538 07/11/24 0707 07/10/24 0451 07/09/24 1349 07/07/24 1853 WBC 11.07* 10.74 10.07 8.32 6.35 8.22 5.72 HB 10.7* 10.8* 10.6* 10.5* 9.9* 10.5* 10.2* HCT 33.8* 34.5* 34.7* 32.3* 31.7* 33.9* 32.7* PLT 345 334 301 289 336 346 284 MCV 83.5 83.3 86.3 83.0 83.2 86.0 86.1 RDWCV 17.9* 17.6* 17.8* 17.6* 17.5* 17.7* 17.5* BMP: Recent Labs 07/14/24 0546 07/13/24 0652 07/12/24 0538 07/11/24 0707 07/10/24 0451 07/09/24 1349 07/07/24 1853 GLUC 131* 103* 100* 98 102* 158* 106* NA 134* 137 136 137 138 136 139 K 4.1 4.2 4.0 3.6* 3.9 4.1 4.3 CHLOR 98 100 101 103 104 103 107 CO2 22 27 21* 23 22 22 20* ANION 14 10 14 11 12 11 12 BUN 19 12 12 15 21 18 16 CREAT 1.01* 0.92 0.81 0.91 0.93 0.94 0.82 CHEM: Recent Labs 07/14/24 0546 07/13/24 0652 07/12/24 0538 07/11/24 0707 07/10/24 0451 07/09/24 1349 07/07/24 1853 ALB 3.5* 3.5* 3.4* 3.4* 3.5* 3.6* 3.7* CA 9.1 9.3 9.3 8.9 9.0 8.8 9.2 ASSESSMENT AND PLAN: Mel Castillo is a (more content not included)... 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, right eye Inferior exudative retinal detachment, right eye PCIOL Dislocation, right eye - 06/10/24 presented to OSH with dizziness, dysarthria and dysphagia found to have acute infarcts in the left hippocampal head and the right cerebellar hemisphere - 06/19/24: Admitted to rehab center and discharged home 07/03/24, had significant right eye tearing but no pain or visual changes - 07/04/2024 noted blurriness in her vision, that subsequently slightly improved over the course of the day - 07/05/24 woke up with severe pain behind her right eye, complete loss of vision (seeing purple/red), swelling of her right eye with significant redness, nausea and vomiting - Presented to the ED, evaluated by ophthalmology (Dr. 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, multiple peripheral iridotomy's performed, with subsequent improvement in intraocular pressure to 37 - Per patient, pain improved somewhat and vision improved following LPI - Next day 07/06/24, she experienced worsening of pain and vision that has been constant since then - Patient denies any trauma to the eye, no recent falls or incidences where eye was hit - Currently eye is tender to touch with pain with EOM - Called patients family spoke to daughter in law who confirms no trauma -Documented optos and B-scan 07/09/24 showing 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) - Evaluated at [facility] 07/12/24 with intense nausea and multiple episodes of vomiting - IOP slightly elevated 31 - Repeat B scan 07/12/24 1) Hemorrhagic choroidal detachments 360-degrees. Possible increased height maximum now at 12:00 measuring 10.0 mm. 2) Not able to assess for mobility today due to patient discomfort 3) SRF over choroidals in three quadrants. Assessment: - Challenging clinical picture - 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 (SBP 199/99 at presentation to [facility]) that caused angle closure and elevated IOP which lead to her initial presentation - Alternatively should pressure differential following LPI have induced hemorrhagic choroidals, additionally no explanation for acute closure as initial pathology given pseudophakic lens status - Patient adamantly denies any trauma but did have significant eye tearing with rubbing of eye day prior to development of symptoms - Cautiously evaluated for open globe given bullous CARLOS, small inferior hyphema, and IOL dislocation however if IOP at presentation was 80 and there is no history of trauma, then lower suspicion - Eye is likely still in pain from hemorrhagic choroidals but much improved after drainage - POD1 s/p choroidal drainage right eye on 07/13/24 for choroidal hemorrhage (Chelita/Luis Alberto) - Doing better - IOP 17, HM [facility] - Difficult view posterior, could not visualize macula/nerve but choroidals seem less prominent superiorly and nasal than pre-op Plan - Continue oral prednisone 20mg - Continue atropine BID right eye - Continue prednisolone QID right eye - Continue dorzolamide TID right eye - Continue Brimonidine TID right eye - Continue Timolol BID right eye - Add Ciprofloxacin QID right eye - Please tape shield over eye at bedtime/when patient sleeping - Ok to restart AC - discussed with primary team last night - Please ensure rapid treatment of any nausea, if patient vomits/significantly strains this could result in worsening of her choroidal hemorrhage - Please keep admitted for return visit with Dr. Lopez coming Tuesday, scheduling request sent - No positioning required - Post-op precautions reviewed, including: Signs and symptoms of endophthalmitis, and retinal detachment warning signs reviewed, including increasing floaters, flashes or changes in peripheral vision. Nicolas Sahu MD Vitreoretinal Surgery Fellow [facility] 07-13-2024 Note HNO ID: [id number] Author: MARCIA MARTINS APRN.REVENUE FIELD AUDITOR Service: ? 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 Size 4 Seal Adequate: yes Failed airway: no Unrecognized esophageal intubation: no Airway not difficult Comments atraumatic SIGNATURE: Marcia Martins APRN.REVENUE FIELD AUDITOR PATIENT NAME: Mel Castillo DATE: July 13, 2024 TIME: 12:42 PM CSN: [id number] [facility] 07-13-2024 Note HNO ID: [id number] Author: FELICIA LEVY MD Service: General Internal Medicine Author Type: Resident Type: Progress Notes Filed: 07/13/2024 14:34 Note Text: Attestation signed by Felicia Levy MD at 07/13/2024 2:34 PM Attending Note I evaluated the patient and personally participated in the whatley components. I agree with the resident's findings and plan as documented and have discussed the case and management of the patient's care with the resident. 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 S/p multiple peripheral iridotomies (IOP 81 => 37 => 6) with improvement of eye pain and some improvement in vision. She is currently on Oral Prednisone (Taper to 30 starting Tuesday 07/10 for 3 days, then to 20 mg starting 07/13 until seen by Ophthalmology) and eye drops. Plan: - Ophthalmology consults - recs appreciated - had worsening pain and vision in the right eye after initial improvement likely due to Hemorrhagic Choroidal effusions/detachment, underwent Choroidal drainage, right eye with ophtho today. - Appreciate recommendations for: PO steroids Eye drops Safety of full systemic anticoagulation with Apixaban (vs other agents if further surgical intervention that requires interruption of AC is planned in the near future. - As for long-term choice of anticoagulant, after careful chart review, discussion with the patient and with her family, it is more likely that the patient was not compliant with taking Apixaban rather than had failure of apixaban. The patient herself says that she was often taking it once daily, and sometimes not at all. The family confirmed that she often had many pills remaining in her pill box at the time of refilling it (weekly). I discussed thoroughly with the patient and family. The challenge with Enoxaparin is that it will be hard to use by the patient with her vision being so poor, especially that she has to waist 1 ml (at her current weight) and inject 7 ml. Via shared-decision making, we agreed to restart the patient on Apixaban 5 mg BID rather than Enoxaparin for her anticoagulant of choice. - Given patient is unable to see at all, she is still requiring IV opioids for pain control and having no safe way of leaving the hospital (lives alone) will continue in-patient management for now pending possible dispo to SNF - Rest per excellent note by resident Signature: Felicia Levy MD Date: 07/13/2024 Time: 2:31 PM Internal Medicine - Dae Chaudhry Progress Note Patient Name: Mel Castillo Patient Location: [id number] Admission Date: 07/07/2024 Length of Stay: 6 Primary Service: DAE Chaudhry Staff: Felicia Levy* Primary Service: Dae Chaudhry INTERVAL HISTORY: - NAEO. - Afebrile. VSS. - Evaluated by Ophtho 07/12. IOP slightly elevated 31. Underwent repeat B scan showing possibly worsening hemorrhagic choroidal detachments. Plan for surgical exploration today PM. - This AM: Still unable to see objects. Still complaining of worsening right eye pain. Deep throbbing and gritty sensation. Requiring dilaudid nearly every 2 hours. Objective MEDICATIONS: Current Facility-Administered Medications Medication Dose Route Frequency NaCl 0.9% iv flush bag 20 mL INTRAVENOUS PRN polyethylene glycol 3350 17 g packet 17 g ORAL DAILY PRN atorvastatin 80 mg tab(s) (LIPITOR) 80 mg ORAL AT BEDTIME albuterol HFA 90 mcg/actuation 2 Puff (PROVENTIL HFA, VENTOLIN HFA) 2 Puff INHALATION q [address] 40 mg tab(s) (PROTONIX) 40 mg ORAL BID AC (0600/1600) acetaminophen 650 mg tab(s) (TYLENOL) 650 mg ORAL q 6 H lidocaine 4 % 1 Patch (SALONPAS) 1 Patch TRANSDERMAL DAILY ascorbic acid (vitamin C) 500 mg tab(s) (VITAMIN C) 500 mg ORAL TID mometasone 220 mcg/ actuation (14) 1 Puff inhaler (ASMANEX) 1 Puff INHALATION DAILY And tiotropium 2.5 mcg - olodaterol 2.5 mcg inhaler (STIOLTO RESPIMAT) 2 Puff INHALATION DAILY lidocaine patch - REMOVE OTHER AT BEDTIME And lidocaine - VERIFY PATCH OTHER q 8 H atropine 1 % 1 Drop 1 Drop RIGHT EYE BID HYDROmorphone 0.2 mg injection (DILAUDID) 0.2 mg INTRAVENOUS q 2 H PRN dorzolamide 2 % 1 Drop (TRUSOPT) 1 Drop RIGHT EYE BID prednisoLONE acetate 1 % 1 Drop (PRED FORTE) 1 Drop RIGHT EYE QID metoprolol succinate ER 25 mg tab(s) (TOPROL XL) 25 mg ORAL DAILY polyvinyl alcohol 1.4 % 2 Drop (LIQUIFILM TEARS) 2 Drop RIGHT EYE PRN predniSONE 20 mg tab(s) (DELTASONE) 20 mg ORAL/FEEDING TUBE DAILY HYDROmorphone 1 mg tab(s) (DILAUDID) 1 mg ORAL q 4 H PRN lisinopril 40 mg tab(s) (ZESTRIL) 40 mg ORAL DAILY (more content not included)... [facility] 07-12-2024 Note HNO ID: [id number] Author: TRACEY NANCE RN Service: Care Management Author Type: Registered Nurse Type: Care Mgt Progress Note Filed: 07/12/2024 16:50 Note Text: CARE MANAGEMENT PROGRESS NOTE SERVICE DATE: 07/12/2024 SERVICE TIME: 4:46 PM LOS: 5 days Post-Acute Discharge Planning Patient Goal(s): Increase strength [place] of Choice Explained: Discharge Planning Participant(s): Patient/Family Comments: Anticipated # of Days Until Discharge: 0 Transport at Discharge: Needs Prior to Discharge: Post-Acute Discharge Plan: Await SNF choices spoke w/ daughter in law Fidel Garcia sent to [facility] yesterday. This CM reached out to [facility] via email for choices. Daughter In law cannot recall selections. covering CM will need to reach out to [facility] tomorrow for selections that were emailed to her. SIGNATURE: Tracey Nance RN PATIENT NAME: Mel Castillo DATE: July 12, 2024 TIME: 4:46 PM [facility] 07-12-2024 Note Date of Procedure 07/12/2024. Senior Net Developer Information CHAR Veliz ROUB 07/12/2024 12:15 PM . Notes B scan OD: From wheelchair. Patient vomiting during this visit. Best images possible. 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 Possible increased height maximum now at 12:00 measuring 10.0 mm. 2) Not able to assess for mobility today due to patient discomfort 3) SRF over choroidals in three quadrants. [facility] 07-12-2024 Note Date of Procedure 07/12/2024. Senior [employer] Compensation Claims Supervisor: JACQUELINE. Imaging Comments: Limited exam due to patient discomfort-best images possible . Notes Worsening choroid detachments [facility] 07-12-2024 Note HNO ID: [id number] Author: THOMAS SCHMITZ MD Service: ? 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, right eye Inferior exudative retinal detachment, right eye PCIOL Dislocation, right eye - 06/10/24 presented to OSH with dizziness, dysarthria and dysphagia found to have acute infarcts in the left hippocampal head and the right cerebellar hemisphere - 06/19/24: Admitted to rehab center and discharged home 07/03/24, had significant right eye tearing but no pain or visual changes - 07/04/2024 noted blurriness in her vision, that subsequently slightly improved over the course of the day - 07/05/24 woke up with severe pain behind her right eye, complete loss of vision (seeing purple/red), swelling of her right eye with significant redness, nausea and vomiting - Presented to the ED, evaluated by ophthalmology (Dr. 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, multiple peripheral iridotomy's performed, with subsequent improvement in intraocular pressure to 37 - Per patient, pain improved somewhat and vision improved following LPI - Next day 07/06/24, she experienced worsening of pain and vision that has been constant since then - Patient denies any trauma to the eye, no recent falls or incidences where eye was hit - Currently eye is tender to touch with pain with EOM - Called patients family spoke to daughter in law who confirms no trauma -Documented optos and B-scan 07/09/24 showing 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) - Evaluated at [facility] 07/12/24 with intense nausea and multiple episodes of vomiting - IOP slightly elevated 31 - Repeat B scan 07/12/24 1) Hemorrhagic choroidal detachments 360-degrees. Possible increased height maximum now at 12:00 measuring 10.0 mm. 2) Not able to assess for mobility today due to patient discomfort 3) SRF over choroidals in three quadrants. Assessment: - Challenging clinical picture - 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 (SBP 199/99 at presentation to [facility]) that caused angle closure and elevated IOP which lead to her initial presentation - Alternatively should pressure differential following LPI have induced hemorrhagic choroidals, additionally no explanation for acute closure as initial pathology given pseudophakic lens status - Patient adamantly denies any trauma but did have significant eye tearing with rubbing of eye day prior to development of symptoms - Cautiously evaluated for open globe given bullous CARLOS, small inferior hyphema, and IOL dislocation however if IOP at presentation was 80 and there is no history of trauma, then lower suspicion - Eye is likely still in significant pain from hemorrhagic choroidals - Given worsening symptoms + examination will arrange for surgical exploration Plan - Continue oral prednisone 20mg - Continue atropine BID right eye - Continue prednisolone QID right eye - Continue dorzolamide TID right eye - Restart Brimonidine TID right eye - Restart Timolol BID right eye - Will arrange for OR tomorrow afternoon for choroidal drainage - NPO at midnight - Discussed with primary - Plan to hold anticoagulation for procedure and then re-start afterward -Primary to please aid in possible home healthcare to help with eye drop and medication administration Phthisical, left eye - History of two prior surgeries for retinal detachment - 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, right eye Inferior exudative retinal detachment, right eye PCIOL Dislocation, right eye - 06/10/24 presented to OSH with dizziness, dysarthria and dysphagia found to have acute infarcts in the left hippocampal head and the right cerebellar hemisphere - 06/19/24: Admitted to rehab center and discharged home 07/03/24, had significant right eye tearing but no pain or visual changes - 07/04/2024 noted blurriness in her vision, that subsequently slightly improved over the course of the day - 07/05/24 woke up with severe pain behind her right eye, complete loss of vision (seeing purple/red), swelling of her right eye with significant redness, nausea and vomiting - Presented to the ED, evaluated by ophthalmology (Dr. 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, multiple peripheral iridotomy's performed, with subsequent improvement in intraocular pressure to 37 - Per patient, pain improved somewhat and vision improved following LPI - Next day 07/06/24, she experienced worsening of pain and vision that has been constant since then - Patient denies any trauma to the eye, no recent falls or incidences where eye was hit - Currently eye is tender to touch with pain with EOM - Called patients family spoke to daughter in law who confirms no trauma -Documented optos and B-scan 07/09/24 showing 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) - Evaluated at [facility] 07/12/24 with intense nausea and multiple episodes of vomiting - IOP slightly elevated 31 - Repeat B scan 07/12/24 1) Hemorrhagic choroidal detachments 360-degrees. Possible increased height maximum now at 12:00 measuring 10.0 mm. 2) Not able to assess for mobility today due to patient discomfort 3) SRF over choroidals in three quadrants. Assessment: - Challenging clinical picture - 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 (SBP 199/99 at presentation to [facility]) that caused angle closure and elevated IOP which lead to her initial presentation - Alternatively should pressure differential following LPI have induced hemorrhagic choroidals, additionally no explanation for acute closure as initial pathology given pseudophakic lens status - Patient adamantly denies any trauma but did have significant eye tearing with rubbing of eye day prior to development of symptoms - Cautiously evaluated for open globe given bullous CARLOS, small inferior hyphema, and IOL dislocation however if IOP at presentation was 80 and there is no history of trauma, then lower suspicion - Eye is likely still in significant pain from hemorrhagic choroidals - Given worsening symptoms + examination will arrange for surgical exploration Plan - Continue oral prednisone 20mg - Continue atropine BID right eye - Continue prednisolone QID right eye - Continue dorzolamide TID right eye - Restart Brimonidine TID right eye - Restart Timolol BID right eye - Will arrange for OR tomorrow afternoon for choroidal drainage - NPO at midnight - Discussed with primary - Plan to hold anticoagulation for procedure and then re-start afterward -Primary to please aid in possible home healthcare to help with eye drop and medication administration Phthisical, left eye - History of two prior surgeries for retinal detachment - 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 Phelan documented in this encounter [facility] 07-12-2024 Note HNO ID: [id number] Author: FELICIA LEVY MD Service: General Internal Medicine Author Type: Resident Type: Progress Notes Filed: 07/12/2024 13:31 Note Text: Attestation signed by Felicia Levy MD at 07/12/2024 1:31 PM Attending Note I evaluated the patient and personally participated in the whatley components. I agree with the resident's findings and plan as documented and have discussed the case and management of the patient's care with the resident. 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 S/p multiple peripheral iridotomies (IOP 81 => 37 => 6) with improvement of eye pain and some improvement in vision. She is currently on Oral Prednisone (Taper to 30 starting Tuesday 07/10 for 3 days, then to 20 mg starting 07/13 until seen by Ophthalmology) and eye drops. Plan: - Ophthalmology consults - recs appreciated - reassessed today in light of worsening pain (she has been crying all day yesterday due to loss of Sister). Evaluated in clinic today, restarted fluorescein-benoxinate and proparacaine 0.5 % as well as - Safe to continue Anticoagulation from Ophthalmology standpoint. As for choice of anticoagulant, after careful chart review, discussion with the patient and with her family, it is more likely that the patient was not compliant with taking Apixaban rather than had failure of apixaban. The patient herself says that she was often taking it once daily, and sometimes not at all. The family confirmed that she often had many pills remaining in her pill box at the time of refilling it (weekly). I discussed thoroughly with the patient and family. The challenge with Enoxaparin is that it will be hard to use by the patient with her vision being so poor, especially that she has to waist 1 ml (at her current weight) and inject 7 ml. Via shared-decision making, we agreed to restart the patient on Apixaban 5 mg BID rather than Enoxaparin for her anticoagulant of choice. - Given patient is unable to see at all, she is still requiring opioids for pain control and having no safe way of leaving the hospital (lives alone) will continue in-patient management for now pending possible dispo to SNF or home with [facility] (challenging given multiple daily eye drops and medications) - Rest per excellent note by resident Signature: Felicia Levy MD Date: 07/12/2024 Time: 1:27 PM Internal Medicine - Dae Chaudhry Progress Note Patient Name: Mel Castillo Patient Location: [id number] Admission Date: 07/07/2024 Length of Stay: 5 Primary Service: DAE Chaudhry Staff: Felicia Levy* Primary Service: Dae Chaudhry INTERVAL HISTORY: - NAEO. - Afebrile. VSS. - Worsening eye pain today. 8/10. Deep throbbing pain with gritty eye sensation. Unable to see light/dark compared to yesterday. Notes she has been crying yesterday due to finding out her sister yesterday. Using dilaudid more frequently for pain now. Objective MEDICATIONS: Current Facility-Administered Medications Medication Dose Route Frequency NaCl 0.9% iv flush bag 20 mL INTRAVENOUS PRN polyethylene glycol 3350 17 g packet 17 g ORAL DAILY PRN atorvastatin 80 mg tab(s) (LIPITOR) 80 mg ORAL AT BEDTIME albuterol HFA 90 mcg/actuation 2 Puff (PROVENTIL HFA, VENTOLIN HFA) 2 Puff INHALATION q [address] 40 mg tab(s) (PROTONIX) 40 mg ORAL BID AC (0600/1600) acetaminophen 650 mg tab(s) (TYLENOL) 650 mg ORAL q 6 H lidocaine 4 % 1 Patch (SALONPAS) 1 Patch TRANSDERMAL DAILY ascorbic acid (vitamin C) 500 mg tab(s) (VITAMIN C) 500 mg ORAL TID mometasone 220 mcg/ actuation (14) 1 Puff inhaler (ASMANEX) 1 Puff INHALATION DAILY And tiotropium 2.5 mcg - olodaterol 2.5 mcg inhaler (STIOLTO RESPIMAT) 2 Puff INHALATION DAILY lidocaine patch - REMOVE OTHER AT BEDTIME And lidocaine - VERIFY PATCH OTHER q 8 H atropine 1 % 1 Drop 1 Drop RIGHT EYE BID HYDROmorphone 0.2 mg injection (DILAUDID) 0.2 mg INTRAVENOUS q 2 H PRN dorzolamide 2 % 1 Drop (TRUSOPT) 1 Drop RIGHT EYE BID prednisoLONE acetate 1 % 1 Drop (PRED FORTE) 1 Drop RIGHT EYE QID lisinopril 20 mg tab(s) (ZESTRIL) 20 mg ORAL DAILY metoprolol succinate ER 25 mg tab(s) (TOPROL XL) 25 mg ORAL DAILY polyvinyl alcohol 1.4 % 2 Drop (LIQUIFILM TEARS) 2 Drop RIGHT EYE PRN predniSONE (DELTASONE) tab(s) 30 mg 30 mg ORAL/FEEDING TUBE DAILY [START ON 07/13/2024] predniSONE 20 mg tab(s) (DELTASONE) 20 mg ORAL/FEEDING TUBE DAILY apixaban 10 mg tab(s) (ELIQUIS) 10 mg ORAL BID Followed by [START ON 07/15/2024] apixaban 5 mg tab(s) (ELIQUIS) 5 mg ORAL BID HYDROmorpho (more content not included)... [facility] 07-11-2024 Note HNO ID: [id number] Author: FELICIA LEVY MD Service: General Internal Medicine Author Type: Resident Type: Progress Notes Filed: 07/11/2024 14:19 Note Text: Attestation signed by Felicia Levy MD at 07/11/2024 2:19 PM Attending Note I evaluated the patient and personally participated in the whatley components. I agree with the resident's findings and plan as documented and have discussed the case and management of the patient's care with the resident. 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 S/p multiple peripheral iridotomies (IOP 81 => 37 => 6) with improvement of eye pain and some improvement in vision. She is currently on Oral Prednisone (Taper to 30 starting Tuesday 07/10 for 3 days, then to 20 mg starting 07/13 until seen by Ophthalmology) and eye drops (Atropine and Prednisolone to continue while timolol, brimonidine, and Moxifloxacin stopped). Plan: - Ophthalmology consults - recs appreciated - will reassess - Safe to continue Anticoagulation from Ophthalmology standpoint. As for choice of anticoagulant, after careful chart review, discussion with the patient and with her family, it is more likely that the patient was not compliant with taking Apixaban rather than had failure of apixaban. The patient herself says that she was often taking it once daily, and sometimes not at all. The family confirmed that she often had many pills remaining in her pill box at the time of refilling it (weekly). I discussed thoroughly with the patient and family. The challenge with Enoxaparin is that it will be hard to use by the patient with her vision being so poor, especially that she has to waist 1 ml (at her current weight) and inject 7 ml. Via shared-decision making, we agreed to restart the patient on Apixaban 5 mg BID rather than Enoxaparin for her anticoagulant of choice. - Given patient is unable to see at all, she is still requiring opioids for pain control and having no safe way of leaving the hospital (lives alone) will continue in-patient management for now pending possible dispo to SNF. - Rest per excellent note by resident Signature: Felicia Levy MD Date: 07/11/2024 Time: 2:16 PM Internal Medicine - Dae Chaudhry Progress Note Patient Name: Mel Castillo [id number] Admission Date: 07/07/2024 Length of Stay: 4 Primary Service: DAE Chaudhry Staff: Felicia Levy* Primary Service: Dae Chaudhry INTERVAL HISTORY: - NAEO. - Afebrile. VSS. - Per Ophtho, no need for further imaging on . Can follow up in outpatient setting on 07/16 unless change in symptoms. - Did not tolerate oxycodone yesterday. Had nausea and episode of emesis. - Pain is well controlled with IV dilaudid and tylenol. Reports 4/10 pain at baseline that fluctuates. Intermittent throbby pain with gritty sensation of eyes. Objective MEDICATIONS: Current Facility-Administered Medications Medication Dose Route Frequency NaCl 0.9% iv flush bag 20 mL INTRAVENOUS PRN polyethylene glycol 3350 17 g packet 17 g ORAL DAILY PRN atorvastatin 80 mg tab(s) (LIPITOR) 80 mg ORAL AT BEDTIME albuterol HFA 90 mcg/actuation 2 Puff (PROVENTIL HFA, VENTOLIN HFA) 2 Puff INHALATION q [address] 40 mg tab(s) (PROTONIX) 40 mg ORAL BID AC (0600/1600) acetaminophen 650 mg tab(s) (TYLENOL) 650 mg ORAL q 6 H lidocaine 4 % 1 Patch (SALONPAS) 1 Patch TRANSDERMAL DAILY ascorbic acid (vitamin C) 500 mg tab(s) (VITAMIN C) 500 mg ORAL TID mometasone 220 mcg/ actuation (14) 1 Puff inhaler (ASMANEX) 1 Puff INHALATION DAILY And tiotropium 2.5 mcg - olodaterol 2.5 mcg inhaler (STIOLTO RESPIMAT) 2 Puff INHALATION DAILY lidocaine patch - REMOVE OTHER AT BEDTIME And lidocaine - VERIFY PATCH OTHER q 8 H atropine 1 % 1 Drop 1 Drop RIGHT EYE BID HYDROmorphone 0.2 mg injection (DILAUDID) 0.2 mg INTRAVENOUS q 2 H PRN dorzolamide 2 % 1 Drop (TRUSOPT) 1 Drop RIGHT EYE BID prednisoLONE acetate 1 % 1 Drop (PRED FORTE) 1 Drop RIGHT EYE QID lisinopril 20 mg tab(s) (ZESTRIL) 20 mg ORAL DAILY metoprolol succinate ER 25 mg tab(s) (TOPROL XL) 25 mg ORAL DAILY polyvinyl alcohol 1.4 % 2 Drop (LIQUIFILM TEARS) 2 Drop RIGHT EYE PRN predniSONE (DELTASONE) tab(s) 30 mg 30 mg ORAL/FEEDING TUBE DAILY [START ON 07/13/2024] predniSONE 20 mg tab(s) (DELTASONE) 20 mg ORAL/FEEDING TUBE DAILY apixaban 10 mg tab(s) (ELIQUIS) 10 mg ORAL BID Followed by [START ON 07/18/2024] apixaban 5 mg tab(s) (ELIQUIS) 5 mg ORAL BID oxyCODONE IR 2.5 mg tab(s) (ROXICODONE) 2.5 mg ORAL/FEEDING TUBE q 4 H PRN AL (more content not included)... [facility] 07-10-2024 Note HNO ID: [id number] Author: FELICIA LEVY MD Service: General Internal Medicine Author Type: Resident Type: Progress Notes Filed: 07/10/2024 13:07 Note Text: Attestation signed by Felicia Levy MD at 07/10/2024 1:07 PM Attending Note I evaluated the patient and personally participated in the whatley components. I agree with the resident's findings and plan as documented and have discussed the case and management of the patient's care with the resident. 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 S/p multiple peripheral iridotomies (IOP 81 => 37 => 6) with improvement of eye pain and some improvement in vision. She is currently on Oral Prednisone (Taper to 30 starting Tuesday 07/10 for 3 days, then to 20 mg starting 07/13 until seen by Ophthalmology) and eye drops (Atropine and Prednisolone to continue while timolol, brimonidine, and Moxifloxacin stopped). Plan: - Ophthalmology consults - recs appreciated - will reassess - Safe to continue Anticoagulation from Ophthalmology standpoint. As for choice of anticoagulant, after careful chart review, discussion with the patient and with her family, it is more likely that the patient was not compliant with taking Apixaban rather than had failure of apixaban. The patient herself says that she was often taking it once daily, and sometimes not at all. The family confirmed that she often had many pills remaining in her pill box at the time of refilling it (weekly). I discussed thoroughly with the patient and family. The challenge with Enoxaparin is that it will be hard to use by the patient with her vision being so poor, especially that she has to waist 1 ml (at her current weight) and inject 7 ml. Via shared-decision making, we agreed to restart the patient on Apixaban 5 mg BID rather than Enoxaparin for her anticoagulant of choice. - Given patient is unable to see at all, she is still requiring opioids for pain control and having no safe way of leaving the hospital (lives alone) will continue in-patient management for now - Rest per excellent note by resident Signature: Felicia Levy MD Date: 07/10/2024 Time: 12:53 PM Internal Medicine - Dae Chaudhry Progress Note Patient Name: Mel Castillo Patient Location: [id number] Admission Date: 07/07/2024 Length of Stay: 3 Primary Service: DAE Chaudhry Staff: Felicia Levy* Primary Service: Dae Chaudhry INTERVAL HISTORY: - Overnight: NAEON. C/o of gritty eyes overnight. Night team started her on liquid tears, which helped. - VSS: SBPs 150-170s. HR 60-80s. 98% RA. - Adjusted pain management yesterday. - Did not request any oxycodone - Taking IV dilaudid 0.2 mg - This morning, denies eye pain. Vision better compared to yesterday. Able to see the outline of her hands. Yesterday, only able to see light. Objective MEDICATIONS: Current Facility-Administered Medications Medication Dose Route Frequency NaCl 0.9% iv flush bag 20 mL INTRAVENOUS PRN polyethylene glycol 3350 17 g packet 17 g ORAL DAILY PRN atorvastatin 80 mg tab(s) (LIPITOR) 80 mg ORAL AT BEDTIME albuterol HFA 90 mcg/actuation 2 Puff (PROVENTIL HFA, VENTOLIN HFA) 2 Puff INHALATION q [address] 40 mg tab(s) (PROTONIX) 40 mg ORAL BID AC (0600/1600) acetaminophen 650 mg tab(s) (TYLENOL) 650 mg ORAL q 6 H lidocaine 4 % 1 Patch (SALONPAS) 1 Patch TRANSDERMAL DAILY ascorbic acid (vitamin C) 500 mg tab(s) (VITAMIN C) 500 mg ORAL TID mometasone 220 mcg/ actuation (14) 1 Puff inhaler (ASMANEX) 1 Puff INHALATION DAILY And tiotropium 2.5 mcg - olodaterol 2.5 mcg inhaler (STIOLTO RESPIMAT) 2 Puff INHALATION DAILY lidocaine patch - REMOVE OTHER AT BEDTIME And lidocaine - VERIFY PATCH OTHER q 8 H atropine 1 % 1 Drop 1 Drop RIGHT EYE BID predniSONE 40 mg tab(s) (DELTASONE) 40 mg ORAL/FEEDING TUBE DAILY enoxaparin 70 mg injection (LOVENOX) 1 mg/kg/dose (Order-Specific) SUBCUTANEOUS q 12 HR oxyCODONE IR 5 mg tab(s) (ROXICODONE) 5 mg ORAL/FEEDING TUBE q 4 H PRN HYDROmorphone 0.2 mg injection (DILAUDID) 0.2 mg INTRAVENOUS q 2 H PRN dorzolamide 2 % 1 Drop (TRUSOPT) 1 Drop RIGHT EYE BID prednisoLONE acetate 1 % 1 Drop (PRED FORTE) 1 Drop RIGHT EYE QID lisinopril 20 mg tab(s) (ZESTRIL) 20 mg ORAL DAILY phosphorus 250 mg tab(s) (K PHOS NEUTRAL) 250 mg ORAL BID PC metoprolol succinate ER 25 mg tab(s) (TOPROL XL) 25 mg ORAL DAILY polyvinyl alcohol 1.4 % 2 Drop (LIQUIFILM TEARS) 2 Drop RIGHT EYE PRN ALLERGIES: Percocet [Oxycodone-Acetaminophen] PHYSICAL EXAM: Vital Signs (last filed) Range in last (more content not included)... [facility] 07-09-2024 Note HNO ID: [id number] Author: TRACEY NANCE RN Service: Care Management Author Type: Registered Nurse Type: Care Mgt Initial Assessment Filed: 07/09/2024 16:17 Note Text: CARE MANAGEMENT: ASSESSMENT AND DISCHARGE PLAN SERVICE DATE: July 09, 2024 SERVICE TIME:4:17 PM PCP: Jared Evans MD, MD Primary Contact: Extended Emergency Contact Information Primary Emergency Contact: Fidel Hdez Mobile Relation: Other Secondary Emergency Contact: Davide Castillo Relation: Other Admission Status: Inpatient Insurance Provider: [facility] MEDIC[facility] PPO Discharge Planning requested by: Per Department Practice Potential Transition Plans Home Care Advance Directives Current Advance Directive: Health Care Power of Zinc Miner In Chart: Yes Up To Date and Valid: Yes Current Living Arrangements and Support Lives with: Alone Type of Residence: Mobile Home Support: Friends/neighbors, Family members How do you manage to accomplish the following: Independent: Ambulation;Bathe/Shower;Dress;Angélica g to the bathroom Needs Assistance: Meals/Meal Prep;Medication Management;Transportation to appointments/community Current Services/Equipment Discharge Planning Patient Goal(s): Increase strength [place] of Choice Explained: [place] of Choice Given: Yes Level of Care Discussed: Home Care Are you interested in bedside delivery of your medications? Yes Discharge Planning Participant(s): Caregiver;Family Patient/Family Comments: Fidel Hdez (Other) Caregiver Assessment: Caregiver is ready, willing and able to meet the patient's needs as recommended by the inter-professional team: (friends) Transport at Discharge: Transportation Arrangements: Car Destination: [address] [address] [place] [id number] Needs Prior to Discharge: Post-Acute Discharge Plan: Anticipate DC home with [facility] 24-48 hours. HC referrals placed . Await OT evaluation. Patient lives alone in trailer , There are 4 steps to entrance, Using rolator prior to admission. Patient independent with ADL and assist with iADL prior to admission.Patient receives meals on wheels. Family transport to appointments and can provide glazing department supervisor assist. Family transport home. This CM spoke with sister in law for initial assessment. Per sister in law. Family is concerned with DC home with current vision status as patient does not have 07/02 supervision. Concerned with patient seeing her meds . Concerned for falls. Family works during day . Request medical team to follow up with Fidel regarding medical plans and possible future surgery. SIGNATURE: Tracey Nance RN PATIENT NAME: Mel Castillo DATE: July 09, 2024 TIME: 4:07 PM [facility] 07-09-2024 Note HNO ID: [id number] Author: NADIA VIDAL ? Service: Pharmacy Author Type: Seo Consultant Type: Plan of Care Filed: 07/09/2024 12:31 Note Text: Insurance investigation completed Patient has active prescription insurance: Yes - Patient's insurance is in-network with [facility] Insurance loaded into [employer] [place]: Yes Test claim was completed to verify insurance is active: Successful Any questions, please reach out to your medication product marketing coordinator. [facility] 07-09-2024 Note HNO ID: [id number] Author: GISSELL POPE RPh Service: Pharmacy Author Type: Pharmacist Type: Plan of Care Filed: 07/09/2024 12:32 Note Text: PHARMACY MEDICATION REVIEW Patient Name: Mel Castillo : 1940 The following medications were updated within the [employer] medication list: Medications ADDED to [employer] medication list Furosemide 40 mg prn swelling Medications CHANGED on [employer] medication list Lisinopril 10 mg changed to 40 mg Increased from 5 mg daily to 40 mg daily on last hospital discharge Medications REMOVED from [employer] medication list Albuterol HFA PRN Lidocaine 4% patch Additional comments: Significant past medications:apixaban (patient reports noncompliance) and warfarin The below information represents the best possible medication history: Yes Medication history completed by: Pharmacist: Gissell Pope RPh Source of history: Patient: Reliability of source: Appears reliable, clearly identified: Medication name, Medication dose, Medication route, Medication frequency, Timing of last dose, and Indications Medication nonadherence identified: No barriers noted Reconciliation completed: Yes Completed by: Gissell Pope RPh All [employer] medications addressed by LIP Patient interested in Bedside Delivery Services or using [facility] OP Pharmacy at discharge? Yes. Discharge Pharmacy Updated Preferred outpatient pharmacy: e- [id number] [place] [address] [address] [facility] [phone] [facility] Allergies: Percocet [Oxycodone* Itching Prior to Admission Medications Prescriptions Last Dose Informant Patient Reported? Taking? acetaminophen (TYLENOL) 325 mg tablet 07/06/2024 No Yes Sig: Take 2 tablets by mouth every 6 hours as needed for pain. ascorbic acid, vitamin C, (VITAMIN C) 500 mg tablet No Yes Sig: Take 1 tablet by mouth three times daily. atorvastatin (LIPITOR) 80 mg tablet 07/06/2024 No Yes Sig: Take 1 tablet by mouth daily at bedtime. enoxaparin (LOVENOX) 80 mg/0.8 mL 07/06/2024 No Yes Sig: Inject 0.7 mL subcutaneously every 12 hours. hlicwxnnlly-xqtkayfxg-htumuviz (TRELEGY ELLIPTA) 100-62.5-25 mcg inhalation powder 07/06/2024 Yes Yes Sig: Inhale 1 Puff as instructed once daily. furosemide (LASIX) 40 mg tablet Yes No Sig: Take 40 mg by mouth as needed (swelling). lisinopril (ZESTRIL) 40 mg tablet Yes No Sig: Take 40 mg by mouth once daily. metoprolol tartrate, short acting, (LOPRESSOR) 25 mg tablet 07/06/2024 No Yes Sig: Take 0.5 tablets by mouth every [address] (PROTONIX) 40 mg tablet No No Sig: Take 1 tablet by mouth twice daily before meals (0600/1600). Facility-Administered Medications Last Administration Doses Remaining PHENYLephrine 2.5 % 1 Drop (AK-DILATE, KEL-SYNEPHRINE) None recorded 1 tropicamide 1 % 1 Drop (MYDRIACYL) None recorded [address] [facility] 07/09/2024 [facility] 07-09-2024 Note HNO ID: [id number] Author: OTILIO GERBER MD Service: ? 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), hx DVT s/p right venous thrombectomy, 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, right eye Inferior exudative retinal detachment, right eye PCIOL Dislocation, right eye - 06/10/24 presented to OSH with dizziness, dysarthria and dysphagia found to have acute infarcts in the left hippocampal head and the right cerebellar hemisphere - 06/19/24: Admitted to rehab center and discharged home 07/03/24, had significant right eye tearing but no pain or visual changes - 07/04/2024 noted blurriness in her vision, that subsequently slightly improved over the course of the day - 07/05/24 woke up with severe pain behind her right eye, complete loss of vision (seeing purple/red), swelling of her right eye with significant redness, nausea and vomiting - Presented to the ED, evaluated by ophthalmology (Dr. 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, multiple peripheral iridotomy's performed, with subsequent improvement in intraocular pressure to 37 - Per patient, pain improved somewhat and vision improved following LPI - Next day 07/06/24, she experienced worsening of pain and vision that has been constant since then - Patient denies any trauma to the eye, no recent falls or incidences where eye was hit - Currently eye is tender to touch with pain with EOM - Called patients family spoke to daughter in law who confirms no trauma -Documented optos and B-scan 07/09/24 showing 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) Assessment: - Challenging clinical picture - 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 (SBP 199/99 at presentation to [facility]) that caused angle closure and elevated IOP which lead to her initial presentation - Alternatively should pressure differential following LPI have induced hemorrhagic choroidals, additionally no explanation for acute closure as initial pathology given pseudophakic lens status - Patient adamantly denies any trauma but did have significant eye tearing with rubbing of eye day prior to development of symptoms - Cautiously evaluated for open globe given bullous CARLOS, small inferior hyphema, and IOL dislocation however if IOP at presentation was 80 and there is no history of trauma, then lower suspicion - Eye is likely still in significant pain from hemorrhagic choroidals - Will plan to treat with steroids and monitor choroidals closely - If no improvement in symptoms may consider surgical exploration Plan - Continue oral prednisone 40mg through today then 30mg for 3 days then remain on 20mg till follow up - Continue atropine BID OD -Start prednisolone QID right eye - STOP Moxifloxacin - Stop brimonidine TID OD - Stop timolol OD - Continue dorzolamide TID - Follow up with Dr. Lopez Monday 07/16 [facility] eye clinic -Can continue anticoagulation -Patient can be discharged from ophthalmology stand point. 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 Phelan [facility] 07-09-2024 History of Present illness Narrative OPHTHALMOLOGY CONSULT PROGRESS NOTE Patient Name: Mel Castillo Patient Admission Date: 07/07/2024 Today's Date: 07/09/24 Interval history: - CT orbits reviewed with good globe contour no evidence of open globe, known choroidal detachments present -Still with 8/10 pain OD improved form 10 on presentation Assessment/Plan: PMH: COPD, HLD, HTN, Afib (on Lovenox currently previously has been on warfarin and eliquis but ?failed both), CKD 3, L retinal detachment, nicotine use, severe LE PAD, recurrent embolic events, 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), hx DVT s/p right venous thrombectomy, 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, right eye Inferior exudative retinal detachment, right eye PCIOL Dislocation, right eye - 06/10/24 presented to OSH with dizziness, dysarthria and dysphagia found to have acute infarcts in the left hippocampal head and the right cerebellar hemisphere - 06/19/24: Admitted to rehab center and discharged home 07/03/24, had significant right eye tearing but no pain or visual changes - 07/04/2024 noted blurriness in her vision, that subsequently slightly improved over the course of the day - 07/05/24 woke up with severe pain behind her right eye, complete loss of vision (seeing purple/red), swelling of her right eye with significant redness, nausea and vomiting - Presented to the ED, evaluated by ophthalmology (Dr. 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, multiple peripheral iridotomy's performed, with subsequent improvement in intraocular pressure to 37 - Per patient, pain improved somewhat and vision improved following LPI - Next day 07/06/24, she experienced worsening of pain and vision that has been constant since then - Patient denies any trauma to the eye, no recent falls or incidences where eye was hit - Currently eye is tender to touch with pain with EOM - Called patients family spoke to daughter in law who confirms no trauma -Documented optos and B-scan 07/09/24 showing 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) Assessment: - Challenging clinical picture - 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 (SBP 199/99 at presentation to [facility]) that caused angle closure and elevated IOP which lead to her initial presentation - Alternatively should pressure differential following LPI have induced hemorrhagic choroidals, additionally no explanation for acute closure as initial pathology given pseudophakic lens status - Patient adamantly denies any trauma but did have significant eye tearing with rubbing of eye day prior to development of symptoms - Cautiously evaluated for open globe given bullous CARLOS, small inferior hyphema, and IOL dislocation however if IOP at presentation was 80 and there is no history of trauma, then lower suspicion - Eye is likely still in significant pain from hemorrhagic choroidals - Will plan to treat with steroids and monitor choroidals closely - If no improvement in symptoms may consider surgical exploration Plan - Continue oral prednisone 40mg through today then 30mg for 3 days then remain on 20mg till follow up - Continue atropine BID OD -Start prednisolone QID right eye - STOP Moxifloxacin - Stop brimonidine TID OD - Stop timolol OD - Continue dorzolamide TID - Follow up with Dr. Lopez Monday 07/16 [facility] eye clinic -Can continue anticoagulation -Patient can be discharged from ophthalmology stand point. 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 Phelan documented in this encounter [facility] 07-09-2024 Note HNO ID: [id number] Author: FELICIA LEVY MD Service: General Internal Medicine Author Type: Resident Type: Progress Notes Filed: 07/09/2024 13:22 Note Text: Attestation signed by Felicia Levy MD at 07/09/2024 1:22 PM Attending Note I evaluated the patient and personally participated in the whatley components. I agree with the resident's findings and plan as documented and have discussed the case and management of the patient's care with the resident. 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 S/p multiple peripheral iridotomies (IOP 81 => 37 => 6) with improvement of eye pain and some improvement in vision. She is currently on Oral Prednisone (Taper to 30 starting Tuesday for 3 days, then to 20 mg until seen by Ophthalmology) and eye drops (Atropine and Prednisolone (timolol, brimonidine, and Moxifloxacin stopped). Plan: - Ophthalmology follow-up on 07/16 - Continue AC with Enoxaparin 1 mg/kg BID for history of afib with strokes (she failed DOACs) - Given patient is unable to see at all, she is still requiring opioids for pain control and having no safe way of leaving the hospital (lives alone) will continue in-patient management for now - Rest per excellent note by resident Signature: Felicia Levy MD Date: 07/09/2024 Time: 1:18 PM Internal Medicine - Dae Chaudhry Progress Note Patient Name: Mel Castillo Patient Location: [facility] [id number] Admission Date: 07/07/2024 Length of Stay: 2 Primary Service: DAE Chaudhry Staff: Felicia Levy* Primary Service: Dae Chaudhry INTERVAL HISTORY: - Overnight: NAEON. Afebrile, HDS. - Improved, but has ongoing eye pain - burning and throbbing. Improved with dilaudid but does not last long enough. - Per ghulam gallegosay to discharge from their perspective. Has follow up arranged 07/16. Objective MEDICATIONS: Current Facility-Administered Medications Medication Dose Route Frequency NaCl 0.9% iv flush bag 20 mL INTRAVENOUS PRN polyethylene glycol 3350 17 g packet 17 g ORAL DAILY PRN atorvastatin 80 mg tab(s) (LIPITOR) 80 mg ORAL AT BEDTIME lisinopril 10 mg tab(s) (ZESTRIL) 10 mg ORAL DAILY metoprolol tartrate (short acting) 12.5 mg tab(s) (LOPRESSOR) 12.5 mg ORAL q 12 H albuterol HFA 90 mcg/actuation 2 Puff (PROVENTIL HFA, VENTOLIN HFA) 2 Puff INHALATION q [address] 40 mg tab(s) (PROTONIX) 40 mg ORAL BID AC (0600/1600) acetaminophen 650 mg tab(s) (TYLENOL) 650 mg ORAL q 6 H lidocaine 4 % 1 Patch (SALONPAS) 1 Patch TRANSDERMAL DAILY ascorbic acid (vitamin C) 500 mg tab(s) (VITAMIN C) 500 mg ORAL TID mometasone 220 mcg/ actuation (14) 1 Puff inhaler (ASMANEX) 1 Puff INHALATION DAILY And tiotropium 2.5 mcg - olodaterol 2.5 mcg inhaler (STIOLTO RESPIMAT) 2 Puff INHALATION DAILY lidocaine patch - REMOVE OTHER AT BEDTIME And lidocaine - VERIFY PATCH OTHER q 8 H HYDROmorphone 0.2 mg injection (DILAUDID) 0.2 mg INTRAVENOUS q 2 H PRN atropine 1 % 1 Drop 1 Drop RIGHT EYE BID dorzolamide 2 % 1 Drop (TRUSOPT) 1 Drop RIGHT EYE BID And timolol maleate 0.5 % 1 Drop (TIMOPTIC) 1 Drop RIGHT EYE BID brimonidine 0.2 % 1 Drop (ALPHAGAN) 1 Drop RIGHT EYE TID predniSONE 40 mg tab(s) (DELTASONE) 40 mg ORAL/FEEDING TUBE DAILY moxifloxacin 0.5 % 1 Drop (VIGAMOX) 1 Drop RIGHT EYE q 2 H while awake enoxaparin 70 mg injection (LOVENOX) 1 mg/kg/dose (Order-Specific) SUBCUTANEOUS q 12 HR ALLERGIES: Percocet [Oxycodone-Acetaminophen] PHYSICAL EXAM: Vital Signs (last filed) Range in last 24h Temp: 36.7 ?C (98.1 ?F) (07/09/24407) Temp Min: 36.4 ?C (97.5 ?F) Max: 36.8 ?C (98.2 ?F) Pulse: 61 (07/09/24407) Pulse Min: 58 Max: 74 Resp: 17 (07/09/24407) Resp Min: 16 Max: 18 BP: 167/61 (07/09/24407) BP Min: 139/56 Max: 167/61 MAP Non Invasive (Mean Arterial Pressure): 87 (07/09/24407) MAP Non Invasive (Mean Arterial Pressure) Min: 67 Max: 87 No data recorded SpO2: 95 % (07/09/24407) SpO2 Min: 91 % Max: 97 % Pain Level: 7 (07/09/24 0339) GENERAL: No acute distress, alert and oriented to person place and time HEENT: Normocephalic atraumatic, R eye swelling and injected conjunctiva. Right pupil is not reactive to light. EOMI. Unable to see face but able to tell when light is shown on her eye. LUNG: Talking comfortably on room air. EXTREMITIES: No lower extremity edema Lines, Drains, and Airways Line Duration Peripheral 07/07/24 External Facility Right Forearm 20 Gauge 2 days Intake/Output 07/07/24 0700 - 07/08/24 0659 07/08/24 0700 - 07/09/24 0659 Intake (ml) 0 350 Output (ml) 2 0 Net (ml) -2 350 (more content not included)... [facility] 07-08-2024 Note HNO ID: [id number] Author: FELICIA LEVY MD Service: Hospital Medicine Author Type: Resident Type: Progress Notes Filed: 07/08/2024 11:43 Note Text: Attestation signed by Felicia Levy MD at 07/08/2024 11:43 AM Attending Note I evaluated the patient and personally participated in the whatley components. I agree with the resident's findings and plan as documented and have discussed the case and management of the patient's care with the resident. 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 Plan: - Ophthalmology consult - appreciate recs (on systemic prednisone and local treatment, serial exams). - Residents discussed with Ophtho - Ok to continue AC for afib and prior embolic strokes. Will keep on Enoxaparin 1 mg/kg BID - Rest per excellent note by resident Signature: Felicia Levy MD Date: 07/08/2024 Time: 11:41 AM Internal Medicine - Dae Chaudhry Progress Note Patient Name: Mel Castillo Patient Location: [id number] Admission Date: 07/07/2024 Length of Stay: 1 Primary Service: DAE Chaudhry Staff: Felicia Levy* Primary Service: Dae Chaudhry INTERVAL HISTORY: - Overnight: NAEON. Afebrile, HDS. - This morning: Reports improved eye pain and vision. Says she can see to her hands and make out shapes of faces nearby. - Imaging: CT orbit showing right globe subretinal hemorrhage with preseptal soft tissue thickening, no post septal inflammatory changes. - Consultants: Ophtho - Med changes: Started on po pred, atropine bid, moxifloxacin q2h, brimonidine, timolol and dorzolamide Objective MEDICATIONS: Current Facility-Administered Medications Medication Dose Route Frequency NaCl 0.9% iv flush bag 20 mL INTRAVENOUS PRN polyethylene glycol 3350 17 g packet 17 g ORAL DAILY PRN atorvastatin 80 mg tab(s) (LIPITOR) 80 mg ORAL AT BEDTIME lisinopril 10 mg tab(s) (ZESTRIL) 10 mg ORAL DAILY metoprolol tartrate (short acting) 12.5 mg tab(s) (LOPRESSOR) 12.5 mg ORAL q 12 H albuterol HFA 90 mcg/actuation 2 Puff (PROVENTIL HFA, VENTOLIN HFA) 2 Puff INHALATION q [address] 40 mg tab(s) (PROTONIX) 40 mg ORAL BID AC (0600/1600) acetaminophen 650 mg tab(s) (TYLENOL) 650 mg ORAL q 6 H lidocaine 4 % 1 Patch (SALONPAS) 1 Patch TRANSDERMAL DAILY ascorbic acid (vitamin C) 500 mg tab(s) (VITAMIN C) 500 mg ORAL TID mometasone 220 mcg/ actuation (14) 1 Puff inhaler (ASMANEX) 1 Puff INHALATION DAILY And tiotropium 2.5 mcg - olodaterol 2.5 mcg inhaler (STIOLTO RESPIMAT) 2 Puff INHALATION DAILY lidocaine patch - REMOVE OTHER AT BEDTIME And lidocaine - VERIFY PATCH OTHER q 8 H HYDROmorphone 0.2 mg injection (DILAUDID) 0.2 mg INTRAVENOUS q 2 H PRN atropine 1 % 1 Drop 1 Drop RIGHT EYE BID dorzolamide 2 % 1 Drop (TRUSOPT) 1 Drop RIGHT EYE BID And timolol maleate 0.5 % 1 Drop (TIMOPTIC) 1 Drop RIGHT EYE BID brimonidine 0.2 % 1 Drop (ALPHAGAN) 1 Drop RIGHT EYE TID predniSONE 40 mg tab(s) (DELTASONE) 40 mg ORAL/FEEDING TUBE DAILY moxifloxacin 0.5 % 1 Drop (VIGAMOX) 1 Drop RIGHT EYE q 2 H while awake enoxaparin 70 mg injection (LOVENOX) 1 mg/kg/dose (Order-Specific) SUBCUTANEOUS q 12 HR ALLERGIES: Percocet [Oxycodone-Acetaminophen] PHYSICAL EXAM: Vital Signs (last filed) Range in last 24h Temp: 36.4 ?C (97.5 ?F) (07/08/24 0940) Temp Min: 36.4 ?C (97.5 ?F) Max: 36.7 ?C (98.1 ?F) Pulse: 61 (07/08/24 1005) Pulse Min: 58 Max: 69 Resp: 16 (07/08/24 1005) Resp Min: 16 Max: 18 BP: (!) 148/41 (07/08/24 0940) BP Min: 148/41 Max: 177/67 MAP Non Invasive (Mean Arterial Pressure): 67 (07/08/24 0940) MAP Non Invasive (Mean Arterial Pressure) Min: 67 Max: 96 No data recorded SpO2: 97 % (07/08/24 1005) SpO2 Min: 94 % Max: 99 % Pain Level: 1 (07/08/24 0800) GENERAL: No acute distress, alert and oriented to person place and time HEENT: Normocephalic atraumatic, severe R eye swelling and injected conjunctiva. Limited vision bilaterally but can see her hands and distinguish face several feet away with light on. CARDIAC: Regular rate and rhythm LUNG: Clear to auscultation ABDOMEN: Normoactive bowel sounds, soft, and mildly tender to palpation EXTREMITIES: No lower extremity edema SKIN: No visible rashes, abrasions, or lesions to the extremities or trunk Lines, Drains, and Airways Line Duration Peripheral 07/07/24 External Facility Right Forearm 20 Gauge 1 day Intake/Output 07/07/24 0700 - 07/08/24 0659 07/08/24 0700 - 07/09/24 0659 Intake (ml) 0 -- Output (ml) 2 0 Net (ml) -2 0 Last Admit LABS: CBC: Recent Labs 07/07/24 1853 12 (more content not included)... [facility] 07-07-2024 Note HNO ID: [id number] Author: JARED GILMORE MD Service: ? 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, right eye PCIOL Dislocation, right eye - 06/10/24 presented to OSH with dizziness, dysarthria and dysphagia found to have acute infarcts in the left hippocampal head and the right cerebellar hemisphere - 06/19/24: Admitted to rehab center and discharged home 07/03/24, had significant right eye tearing but no pain or visual changes - 07/04/2024 noted blurriness in her vision, that subsequently slightly improved over the course of the day - 07/05/24 woke up with severe pain behind her right eye, complete loss of vision (seeing purple/red), swelling of her right eye with significant redness, nausea and vomiting - Presented to the ED, evaluated by ophthalmology (Dr. 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, multiple peripheral iridotomy's performed, with subsequent improvement in intraocular pressure to 37 - Per patient, pain improved somewhat and vision improved following LPI - Next day 07/06/24, she experienced worsening of pain and vision that has been constant since then - Patient denies any trauma to the eye, no recent falls or incidences where eye was hit - Currently eye is tender to touch with pain with EOM - Called patients family spoke to daughter in law who confirms no trauma Assessment: - Challenging clinical picture - Patient may have developed hemorraghic choroidals that caused angle closure and elevated IOP which lead to her initial presentation however no real inciting factor for choroidals, could they have been spontaneous? - Alternatively should pressure differential following LPI have induced hemorrhagic choroidals, additionally no explanation for acute closure as initial pathology given pseudophakic lens status - Patient adamantly denies any trauma but did have significant eye tearing with rubbing of eye day prior to development of symptoms - Cautiously evaluated for open globe given bullous CARLOS, small inferior hyphema, and IOL dislocation however if IOP at presentation was 80 and there is no history of trauma, then lower suspicion - Eye is likely still in significant pain from hemorrhagic choroidals - Will plan to treat with steroids and monitor choroidals closely - If no improvement in symptoms may consider surgical exploration Plan - Obtain CT Orbits wo - Start oral prednisone 40mg daily - Start atropine BID OD - Start moxifloxacin q2 hours while awake - Start brimonidine TID OD - Start cosopt BID OD - Ophthalmology to follow with daily examinations - Ok to eat tonight but keep NPO after midnight Phthisical, left eye - History of two prior surgeries for retinal detachment - Chronically small hyperdense left ocular globe with calcification on prior CT - NLP vision Tatyana Johnson MD Ophthalmology Resident Seen with Dr. Gilmore I have confirmed and edited as necessary the relevant ophthalmic history, ROS, and the neuro exam findings as obtained by others. I have seen and examined this patient. I have discussed the case and the management of this patient's care with the Resident/Fellow, if applicable. I also have reviewed and agree with the assessment and plan as stated above and agree with all of its relevant components. 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, right eye PCIOL Dislocation, right eye - 06/10/24 presented to OSH with dizziness, dysarthria and dysphagia found to have acute infarcts in the left hippocampal head and the right cerebellar hemisphere - 06/19/24: Admitted to rehab center and discharged home 07/03/24, had significant right eye tearing but no pain or visual changes - 07/04/2024 noted blurriness in her vision, that subsequently slightly improved over the course of the day - 07/05/24 woke up with severe pain behind her right eye, complete loss of vision (seeing purple/red), swelling of her right eye with significant redness, nausea and vomiting - Presented to the ED, evaluated by ophthalmology (Dr. 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, multiple peripheral iridotomy's performed, with subsequent improvement in intraocular pressure to 37 - Per patient, pain improved somewhat and vision improved following LPI - Next day 07/06/24, she experienced worsening of pain and vision that has been constant since then - Patient denies any trauma to the eye, no recent falls or incidences where eye was hit - Currently eye is tender to touch with pain with EOM - Called patients family spoke to daughter in law who confirms no trauma Assessment: - Challenging clinical picture - Patient may have developed hemorraghic choroidals that caused angle closure and elevated IOP which lead to her initial presentation however no real inciting factor for choroidals, could they have been spontaneous? - Alternatively should pressure differential following LPI have induced hemorrhagic choroidals, additionally no explanation for acute closure as initial pathology given pseudophakic lens status - Patient adamantly denies any trauma but did have significant eye tearing with rubbing of eye day prior to development of symptoms - Cautiously evaluated for open globe given bullous CARLOS, small inferior hyphema, and IOL dislocation however if IOP at presentation was 80 and there is no history of trauma, then lower suspicion - Eye is likely still in significant pain from hemorrhagic choroidals - Will plan to treat with steroids and monitor choroidals closely - If no improvement in symptoms may consider surgical exploration Plan - Obtain CT Orbits wo - Start oral prednisone 40mg daily - Start atropine BID OD - Start moxifloxacin q2 hours while awake - Start brimonidine TID OD - Start cosopt BID OD - Ophthalmology to follow with daily examinations - Ok to eat tonight but keep NPO after midnight Phthisical, left eye - History of two prior surgeries for retinal detachment - Chronically small hyperdense left ocular globe with calcification on prior CT - NLP vision Tatyana Johnson MD Ophthalmology Resident Seen with Dr. 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 She had a CT head and MRI brain which showed no infarct but incidental 3 mm right ICA aneurysm. She was seen by neurology and no acute TIA or stroke. Patient was seen by ophthalmology and underwent multiple peripheral iridotomy's due to acute angle-closure glaucoma. During subsequent eye exam noticed to have a retinal detachment and ophthalmology recommended retinal specialist evaluation. She was able to be accepted at [facility] for retinal evaluation. Acute angle-closure glaucoma - seen by ophthalmology; multiple peripheral iridotomy; contacted Dr. Carlson and recommended evaluation by retinal specialist; contacted [facility] and placed on high priority transfer list; contacted and [facility] to see about possible transfer there as potential wait at [facility]; contacted this AM and accepted at [facility] and patient prefers to go there rather than [facility]; transfer AIDAN to [facility]; RN, patient, and DAYA Stokes aware Hx of recent left cerebellar infarct Incidental right ICA aneurysm - followup outpatient in endovascular clinic HTN COPD and asthma - no exacerbation CKD stage III Severe LE PAD Hx of DVT s/p right venous thrombectomy - failed Eliquis and on lovenox injections A-fib Past Medical History: Diagnosis Date Arrhythmia PAF Asthma Chronic kidney disease COPD (chronic obstructive pulmonary disease) (HCC) DVT (deep venous thrombosis) (HCC) Essential hypertension 03/07/2020 GERD (gastroesophageal reflux disease) Hiatal hernia IBS (irritable bowel syndrome) Pure hypercholesterolemia 03/07/2020 PVD (peripheral vascular disease) (HCC) Stroke (HCC) Procedures: multiple peripheral iridotomies Hospital Course: See above. See discharge diagnoses list above and medication adjustments below in med rec.The patient is discharged in improved and stable condition. Consults: IP CONSULT TO NEUROLOGY IP CONSULT TO STROKE TEAM IP CONSULT TO OPHTHALMOLOGY IP CONSULT TO ENDOVASCULAR NEUROLOGY Discharge Instructions: Diet: Dietary Orders (From admission, onward) Start Ordered 07/05/24 1325 Adult diet Regular Diet effective now Question: Diet type Answer: Regular 07/05/24 7934 Activity: as tolerated Recommended Outpatient Tests: Disposition: Patient discharged in stable condition to Transfer to Acute Care Hospital. Greater than 31 minutes spent discharging the patient and coming up with patient discharge plan. Vitals: BP 149/67 (BP Location: Right arm, Patient Position: Lying) Pulse 69 Temp 36.5 C (97.7 F) (Temporal) Resp 12 Ht 5' 4" (1.626 m) Wt 160 lb (72.6 kg) SpO2 94% BMI 27.46 kg/m Pulse Ox: SpO2 Av.6 % Min: 92 % Max: 98 % Supplemental O2: Physical Exam Constitutional: General: She is not in acute distress. HENT: Head: Normocephalic and atraumatic. Mouth/Throat: Mouth: Mucous membranes are moist. Eyes: Comments: +right eye injected Cardiovascular: Rate and Rhythm: Normal rate and regular rhythm. Pulmonary: Effort: Pulmonary effort is normal. Breath sounds: Normal breath sounds. Abdominal: General: There is no distension. Palpations: Abdomen is soft. Tenderness: There is no abdominal tenderness. Musculoskeletal: General: No swelling. Skin: General: Skin is warm and dry. Neurological: General: No focal deficit present. Mental Status: She is alert and oriented to person, place, and time. Psychiatric: Mood and Affect: Mood normal. Judgment: Judgment normal. LABS: Recent Labs 07/05/24 0833 07/06/24 0609 07/07/24 0421 NA 139 140 138 K 4.3 4.5 4.0 CL 107 113* 111* CO2 22* 18* 23 BUN 13 16 19 CREATININE 0.82 0.86 0.84 GLUCOSE 118* 74* 102 CALCIUM 9.2 8.9 8.7* Recent Labs 07/05/24 0435 07/06/24 0609 07/07/24 0421 WBC 5.5 6.1 5.6 RBC 4.01 3.68* 3.52* HGB 10.6* 9.7* 9.1* HCT 32.8* 31.8* 29.9* MCV 81.8 86.4 84.9 MCH 26.4 26.4 25.9* MCHC 32.3 30.5 30.4* RDW 17.2* 17.8* 17.6* PLT 349 278 301 MPV 9.6 10.9 9.8 Discharge Medications: Medication List START taking these medications brimonidine 0.2 % ophthalmic solution Commonly known as: AlphaGAN Administer 1 drop into the right eye 3 times daily. dorzolamide 2 % ophthalmic solution Commonly known as: Trusopt Administer 1 drop into the right eye 3 times daily. prednisoLONE acetate 1 % ophthalmic suspension Commonly known as: Pred-Forte Administer 1 drop into the right eye every 4 hours. timolol 0.5 % ophthalmic solution Commonly known as: Timoptic Administer 1 drop into the right eye 2 times daily. CONTINUE taking these medications ascorbic acid 500 MG tablet Commonly known as: Vitamin C atorvastatin 80 MG tablet Commonly known as: Lipitor enoxaparin 80 MG/0.8ML solution prefilled syringe Commonly known as: Lovenox lisinopril 40 MG tablet metoprolol tartrate 25 MG tablet Commonly known as: Lopressor Trelegy Ellipta 100-62.5-25 MCG/ACT aerosol powder Generic drug: Vsaenhmvpxf-[id number]-Jwkmwo STOP taking these medications albuterol 108 (90 Base) MCG/ACT inhaler furosemide 40 MG tablet Commonly known as: Lasix Where to Get Your Medications Information about where to get these medications is not yet available Ask your nurse or doctor about these medications brimonidine 0.2 % ophthalmic solution dorzolamide 2 % ophthalmic solution prednisoLONE acetate 1 % ophthalmic suspension timolol 0.5 % ophthalmic solution Recommended Follow-up: Tre Lombardi MD [address] [place] [phone] Call in 2 month(s) Need follow up in December 2024 for aneurysm surveillence Complexity of Follow up: [] Moderate Complexity: follow up within 7-14 calendar days (10554) [x] Severe Complexity: follow up within 7 calendar days (45321) - after DC from [facility] Follow up Testing, Pending results or Referrals at Transitional Care Visit: [] yes [x] no Instructions to MA: Please call patient on day after discharge (must document patient contacted within 2 business days of discharge). Follow up questions for MA: 1. Did you get medications filled and taking them as instructed from discharge? 2. Are you following your discharge instructions from your hospital stay? 3. Please confirm patient is scheduled for a follow up appointment within the above time frame. Signed: Red Henderson DO Division of Hospitalist Medicine Acute care [facility] 07/07/2024, 11:08 AM documented in this encounter [facility] 07-07-2024 Nurse Note Report called to [facility]. [facility] 07-07-2024 Nurse Note Report called to [facility]. This RN called [employer] to try and locate pts lost glasses from 07/05/2024. Glasses that match the description are in lost and found. Will attempt to see if glasses are a match. documented in this encounter [facility] 07-07-2024 Note Formatting of this n ote might be different from the original. Care Management Progress Note DC plan - Transfer to [facility]. Received message from RN who reports pt has a bed at the [facility] and dc orders to go today and is requesting transportation be set up AIDAN. Transportation set up through roundtrip via cot with [employer] for 10:30am. RN, pt and pt's dtr Fidel notified of dc plan and transportation time. No add'l needs for dc noted or identified at this time. Length of Stay (Days): 0 GMLOS: 2.3 [facility] 07-07-2024 Note Formatting of this n ote might be different from the original. Care Management Progress Note DC plan - Transfer to [facility]. Received message from RN who reports pt has a bed at the [facility] and dc orders to go today and is requesting transportation be set up AIDAN. Transportation set up through roundtrip via cot with [employer] for 10:30am. RN, pt and pt's dtr Fidel notified of dc plan and transportation time. No add'l needs for dc noted or identified at this time. Length of Stay (Days): 0 GMLOS: 2.3 [facility] 07-07-2024 Miscellaneous Notes Care Management Progress Note DC plan - Transfer to [facility]. Received message from RN who reports pt has a bed at the [facility] and dc orders to go today and is requesting transportation be set up AIDAN. Transportation set up through roundtrip via cot with [employer] for 10:30am. RN, pt and pt's dtr Fidel notified of dc plan and transportation time. No add'l needs for dc noted or identified at this time. Length of Stay (Days): 0 GMLOS: 2.3 Complicated discharge , live alone, poor vision - PT/OT now ordered- live in mobile home. Consults in progress. Need [facility] to follow - does have pcp , script coverage. , tcc met with her family and patient- she is comfortable going home to her mobile hme- has supportive neighbors , family and friends who confirmed will assist ., and drive- her - they do now., the OPHTHALMOLOGY needs to confirm if transfer to [facility] or go home and see a retinal specialist ? Dr Henderson is working on this . With staff. [facility] she is agreeable to it if goes home . [employer] Mel Pop : 1940 Primary Care Physician: Jared Evans MD The patient and/or family/surrogate voluntarily agreed to participate in ACP services. Patient s cognitive capacity: intact Code Status: [ ] [FULL CODE - Continue all advanced life support: CPR,intubation,invasive procedures] [ X ] [DNR-CCA - DO NOT do CPR, intubation] [_] [DNR-STEAMER TENDER - Comfort care only] [_] DNR form [was/was not] signed Summary of discussion: The patient health care POA/ surrogate is the following: Fidel STAPLETON ([facility]) I answered all the patient/family questions that I could within the range and scope of the current medical situation. We discussed the medical conditions, risks, benefits, outcomes, and goals of care at this time for the patient's medical issues at hand in the face of the patient's chronic issues and current presentation. Total time spent: 2 minutes were spent discussing the patient's resuscitation status, advance care planning, and end of life care, with patient and/or family/surrogate. Silvio Peres MD [facility] 07/05/2024, 1:18 PM documented in this encounter [facility] 07-07-2024 History of Present illness Narrative Nutrition rescreen completed. Chart reviewed. Patient to be monitored and followed by the diet orthodontic laboratory technician. Images from the original note were not included. PHYSICAL THERAPY [facility] Initial Evaluation Name/MRN: Mel Pop ([id number]) Evaluation Date: 07/06/2024 Date of : 1940 Admission Date: 07/05/2024 4:21 AM Age: 83 y.o. Room/Bed: W3324/W3-324 A Discharge Recommendation: Intermediate Facility Equipment Needed: (tbd) Assessment IMPRESSION: The pt is admitted with a retinal detachment in her Rt eye, and she will benefit from therapy for the listed impairments and to improve her overall functional capacity. The pt is currently below her prior level of function and is currently unsafe to return home. The pt is a fall risk, and SNF is recommended at discharge. Increased time was needed for mobility was needed and increased anxiety was reported secondary to visual limitations. Her vision is limited on the Rt and she is able to see some color and shapes that are close. Detail vision is limited and Lt sided vision is absent. If the pt did return home then she would need 24 hour assistance. Due to visual limitations she is not safe to be alone. Admitting Diagnosis: Rt retinal detachment Prognosis: fair Performance Deficits /Impairments: Decreased Functional Mobility, Decreased ADL status, Decreased Endurance, Decreased Balance, Decreased ROM, Decreased Vision/Visual Deficit, and Decreased Posture Decision Making: Low Complexity Subjective Pt in bed and agreed to PT. Pt would like to try to walk. Pain: Pt denies any current pain. Past Medical History: Past Medical History: Diagnosis Date Arrhythmia PAF Asthma Chronic kidney disease COPD (chronic obstructive pulmonary disease) ([facility]) DVT (deep venous thrombosis) ([facility]) Essential hypertension 03/07/2020 GERD (gastroesophageal reflux disease) Hiatal hernia IBS (irritable bowel syndrome) Pure hypercholesterolemia 03/07/2020 PVD (peripheral vascular disease) ([facility]) Stroke ([facility]) Past Surgical History: Past Surgical History: Procedure Laterality Date ANKLE SURGERY ARM SURGERY (HISTORICAL) Right COLONOSCOPY ESOPHAGEAL DILATION EYE SURGERY 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 HYSTERECTOMY ORTHOPEDIC SURGERY THROMBECTOMY Right 04/06/2024 RLE mechanical thrombectomy (Krzysztof) Admission Diagnosis: Patient Active Problem List Diagnosis Date Noted Visual disturbance, subjective 07/06/2024 Retinal detachment, right 07/05/2024 Vision loss of right eye 07/05/2024 Acute venous embolism and thrombosis of deep vessels of proximal lower extremity ([facility]) 04/14/2024 Peripheral arterial disease ([facility]) 04/03/2024 Immunodeficiency due to conditions classified elsewhere ([facility]) 07/27/2023 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 ([facility]) 07/27/2023 Bilateral pneumonia 06/16/2022 COVID-19 06/16/2022 Hypothyroidism 06/16/2022 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[facility]) 06/16/2022 Cellulitis 05/18/2022 Nicotine use disorder 05/18/2022 Acute venous embolism and thrombosis of deep vessels of proximal end of right lower extremity ([facility]) 04/19/2024 Atrial fibrillation, unspecified type ([facility]) 04/19/2024 Irritable bowel syndrome with diarrhea 03/07/2020 Microscopic hematuria 03/07/2020 Left retinal detachment 03/07/2020 Hyperglycemia 03/07/2020 Osteopenia of left femoral neck 03/07/2020 prison current use of anticoagulant therapy 03/07/2020 Seasonal allergies 03/07/2020 Chronic renal insufficiency, stage III (moderate) ([facility]) 03/07/2020 Major depression, single episode, in complete remission ([facility]) 03/07/2020 Gastroesophageal reflux disease without esophagitis 03/07/2020 Essential hypertension 03/07/2020 Pure hypercholesterolemia 03/07/2020 Overweight 03/07/2020 Psoriasis 03/07/2020 History of cerebrovascular accident 03/07/2020 Atrial fibrillation ([facility]) 03/07/2020 Chronic obstructive pulmonary disease ([facility]) 03/07/2020 Finger osteomyelitis, right ([facility]) 03/06/2020 Medical Precautions: No active isolations Proper PPE donned/doffed in accordance with facility standards. Fall Risk: Nugent Fall Risk Score: 60 (High Risk) Precautions/Restrictions: Lines/Drains/Airways: PIV Bed alarm, fall risk arm band, blind Lt eye Family/Caregiver Present: none Overall Cognitive Status: WFL Overall Orientation Status: Oriented x4 Vision: blind Lt eye, very limited Rt eye Hearing: functional for therapy Social/Functional History Patient admitted from home. Lives With: Alone Type of Home: trailer Home Layout: Single Level Home Home Access: Stairs to Enter with Rails (# of stairs: 4-5) Bathroom Shower/Tub: Tub/Shower Combo and Tub transfer bench Toilet: high toilet Home Equipment: front wheeled walker and rollator Homemaking Responsibilities: Needs Assist Receives Help From: pt has a close support system of friends and family Active Coat Checker: Prior Level of Function Prior Level of ADL Function: Independent Prior Level of Mobility: Independent; Device: Front wheeled walker Prior Level of Transfers: Independent Objective Lower Extremity Assessment AROM: WFL Strength: WFL Sensation: no numbness and tingling reported. Balance: Balance During Session: Posture: fair Sitting - Static: Supervision Sitting - Dynamic: Contact Guard Standing - Static: Contact Guard Standing - Dynamic: Min Assist Pt able to sit on commode with use of UE support without a LOB. Pt able to perform hygiene post voiding without a LOB with UE support with CGA. Pt stood at sink with min assist/CGA to wash her hands. Bed Mobility: Supine to sit: SBA Scooting: SBA Increased time, hand held assist, use of rail, HOB elevated Transfers Sit to stand: Min Assist Stand to sit: Min Assist From EOB to FWW, from commode with grab bar Ambulation Ambulation 1 Assistive device(s) used: Front wheeled walker Assist level: Min Assist Distance (ft): 60 ft seated break, 12 ft seated break Quality of gait: flexed posture, shuffle steps, head down, assist to steer walker, unsteady, cues for environment Tone: WFL Upper Extremity: 90 degrees shoulder elevation observed bilat, elbow ROM is WFL and equal bilat, strength is equal bilat and WFL Outcome Measures AM-PAC How much HELP from another person do you currently need Turning from your back to your side while in a flat bed without using bedrails?: A Little Moving from lying on your back to sitting on the side of a flat bed without using bedrails?: A Little Moving to and from a bed to a chair (including a wheelchair)?: A Little Standing up from a chair using your arms (wheelchair or bedside chair)?: A Little Walking in a hospital room?: A Little Stair climbing assessed?: No AM-PAC Inpatient Mobility Raw Score (No Stairs) : 15 JH-HLM -HL Score: Walked 25 ft or more (i.e. walked outside of room) Plan Pt would benefit from skilled acute PT services to address Strengthening, ROM, Gait Training, Balance Training, Functional Mobility Training, Endurance Training, Safety Education and Training, Stair Training, and Equipment Evaluation/Education. Frequency: 2x/week for 2 weeks Barriers: Impaired balance, Decreased endurance, Stairs at home, Long standing deficits, and Impaired vision Safety/Education Safety Safety Devices in place: call light within reach, left in chair, chair alarm in place, gait belt, and nurse notified Restraints: No Education Education Given To: patient Education Provided: PT Role, PT Goals, Gait Training, Plan of Care, Transfer Training, and Discharge Recommendations Education Method: Verbal Barriers to Learning: None Education Outcome: Verbalized Understanding and Continued Education Needed Goals Patient Stated Goal: to go home Encounter Problems Encounter Problems (Active) Mobility Patient will ambulate 50 feet with supervision and least restrictive device in order to improve safety and independence with mobility. Start: 07/06/24 Expected End: 07/20/24 Patient will ascend and descend 4-5 stairs with least restrictive device and supervision in order to safely negotiate home. Start: 07/06/24 Expected End: 07/20/24 Pain - Adult Transfers Patient will perform bed mobility with modified independence in order to improve independence and prepare for out of bed mobility. Start: 07/06/24 Expected End: 07/20/24 Patient will complete functional transfer with least restrictive device with supervision in order to prepare for ambulation. Start: 07/06/24 Expected End: 07/20/24 Therapy Time Individual Co-Treatment Co-Evaluation Time In 1423 (one eval low complex) Time Out 1443 Minutes 20 Plan to be activated only if patient is admitted or for assessing discharge needs. Mikhail Reese PT Patient's Physical Therapy Plan of Care supervision is transferred to a [facility] Therapy Services Physical Therapist. Goals and/or treatment plan was established in collaboration with patient/family/other representatives. Hospitalist Progress Note 07/06/2024 Subjective: Admit Date: 07/05/2024 PCP: Jared Evans MD [facility] BRIEF HOSPITAL COURSE: Per admitting hospitalist's HPI: Mel is a 83 y.o. female with past medical history below who presents with chief complaint listed above. 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 Of note just discharged from rehab on 07/03/2024 after recently being hospitalized for CVA. She was doing okay at home until 07/04/2024 morning when she noted blurriness in her vision, that subsequently slightly improved over the course of the day. They initially attributed it to possible allergies or dust after returning home after prolonged absence. However this morning she woke up with severe pain behind her right eye into her head, as well as complete loss of vision, swelling of her right eye with significant redness. She was nauseous and vomiting. She presented to the ED immediately for further evaluation. ED Course: Vital signs notable for elevated blood pressure, otherwise stable, afebrile. Labs unremarkable. 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 CT perfusion showed no regional areas of infarct. MRI brain regions of old infarct in the cerebellar hemispheres and right middle cerebral artery territory. Ophthalmology, Dr. 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 Eyedrop recommendations made and ordered. She remains quite symptomatic in regards to nausea and eye pain, however very much improved as compared to previously Will admit for further evaluation and management. " Interval History: Patient seen and examined. Chart reviewed. Seen by ophthalmology this AM and concern for retinal detachment of the right eye. Denies fever, chills, CP, dyspnea, abd pain, N/V. Has moderate, sharp frontal headache. Vision diminished in right eye. She has previous left eye blindness. Case and plan discussed with patient and bedside nurse. All questions answered. Adult diet Regular 24HR INTAKE/OUTPUT: No intake or output data in the 24 hours ending 07/06/24 1311 Past Medical History: Past Medical History: Diagnosis Date Arrhythmia PAF Asthma Chronic kidney disease COPD (chronic obstructive pulmonary disease) ([facility]) DVT (deep venous thrombosis) ([facility]) Essential hypertension 03/07/2020 GERD (gastroesophageal reflux disease) Hiatal hernia IBS (irritable bowel syndrome) Pure hypercholesterolemia 03/07/2020 PVD (peripheral vascular disease) ([facility]) Stroke ([facility]) LABS: CBC: Recent Labs 07/05/24 0435 07/06/24 0609 WBC 5.5 6.1 RBC 4.01 3.68* HGB 10.6* 9.7* HCT 32.8* 31.8* MCV 81.8 86.4 RDW 17.2* 17.8* PLT 349 278 BMP: Recent Labs 07/05/24 0441 07/05/24 0833 07/06/24 0609 NA 139 139 140 K 4.5 4.3 4.5 CL -- 107 113* CO2 -- 22* 18* BUN -- 13 16 CREATININE 0.9 0.82 0.86 GLUCOSE -- 118* 74* CALCIUM -- 9.2 8.9 ANIONGAP -- 10 9 LIVER PROFILE: Recent Labs 07/05/24 0833 AST 26 ALT 23 BILITOT 0.7 ALKPHOS 94 PROT 7.0 PT/INR: Recent Labs 07/05/24 0435 PROTIME 11.7 INR 1.0 CARDIAC ENZYMES: No results for input(s): "TROPONINI" in the last 72 hours. Procalcitonin: No results found for: "PROCAL" COVID-19 PCR: No results for input(s): "COVID19" in the last 72 hours. Objective: Vitals: BP 144/57 (BP Location: Right arm, Patient Position: Lying) Pulse 65 Temp 36.8 C (98.3 F) (Temporal) Resp 18 Ht 5' 4" (1.626 m) Wt 160 lb (72.6 kg) SpO2 93% BMI 27.46 kg/m Pulse Ox: SpO2 Av.1 % Min: 92 % Max: 100 % Supplemental O2: Physical Exam Constitutional: General: She is not in acute distress. HENT: Head: Normocephalic and atraumatic. Mouth/Throat: Mouth: Mucous membranes are moist. Eyes: Comments: Right eye injected Cardiovascular: Rate and Rhythm: Normal rate and regular rhythm. Pulmonary: Effort: Pulmonary effort is normal. Breath sounds: Normal breath sounds. Abdominal: General: There is no distension. Palpations: Abdomen is soft. Tenderness: There is no abdominal tenderness. Musculoskeletal: General: No swelling. Skin: General: Skin is warm and dry. Neurological: Mental Status: She is alert and oriented to person, place, and time. Comments: +globally weak Psychiatric: Mood and Affect: Mood normal. Judgment: Judgment normal. Medications: Scheduled PRN ascorbic acid, 500 mg, Oral, TID atorvastatin, 80 mg, Oral, Daily brimonidine, 1 drop, Right Eye, TID dorzolamide, 1 drop, Right Eye, TID enoxaparin, 70 mg, SubCUTAneous, q12h lisinopril, 40 mg, Oral, Daily metoprolol tartrate, 25 mg, Oral, BID WC mometasone-formoterol, 2 puff, Inhalation, BID prednisoLONE acetate, 1 drop, Right Eye, 6 times per day sodium chloride 0.9%, 5-40 mL, IntraVENous, q12h timolol, 1 drop, Right Eye, BID tiotropium, 2 puff, Inhalation, Daily PRN medications: acetaminophen OR acetaminophen, HYDROmorphone OR HYDROmorphone, naloxone, ondansetron ODT OR ondansetron, oxyCODONE, polyethylene glycol (PEG) 3350, prochlorperazine, sodium chloride, sodium chloride 0.9% Continuous sodium chloride, 50 mL/hr, Last Rate: 50 mL/hr (07/06/24917) Assessment Plan Acute angle-closure glaucoma - seen by ophthalmology; multiple peripheral iridotomy; contacted Dr. Carlson and recommended evaluation by retinal specialist; contacted [facility] and placed on high priority transfer list; contacted and [facility] to see about possible transfer there as potential wait at [facility] Hx of recent left cerebellar infarct Incidental right ICA aneurysm - followup outpatient in endovascular clinic HTN COPD and asthma - no exacerbation CKD stage III Severe LE PAD Hx of DVT s/p right venous thrombectomy A-fib Advance Directive: DNR-CCA Anticipated Discharge - Date - Transfer to tertiary center with retinal specialist Extended Emergency Contact Information Primary Emergency Contact: CastilloJosé Miguel/ Fidel Mobile Relation: Mother Secondary Emergency Contact: Damaris Villafana DO NOT CALL-TERMINALLY ILL Mobile Relation: Friend Red Henderson DO Division of Hospitalist Medicine Acute care [facility] documented in this encounter [facility] 07-06-2024 Nurse Note This RN called Protective Services to try and locate pts lost glasses from 07/05/2024. Glasses that match the description are in lost and found. Will attempt to see if glasses are a match. [facility] 07-06-2024 Telephone encounter Note TELEPHONE ENCOUNTER 07/06/2024 Patient with recent stroke and admitted to [facility] where she was noted to have elevated IOP with retinal detachment of the right eye by consult catering manager. 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 Was contacted about potential transfer to [facility] to be evaluated by retinal specialist. Discussed that given she is currently admitted on neurology floor the decision to transfer to [facility] should be discussed with medicine vs neurology and then ophthalmology service will be able to evaluate her potential retinal detachment and consider intervention as needed. PLAN: - discuss transferring to [facility] with medicine or neurology service - page ophthalmology when arrived - PLAN: VA, IOP, DFE, OCT mac OU, and optos OU Ryan Elizondo MD Ophthalmology Resident [facility] Work Phone: 07-06-2024 Miscellaneous Notes TELEPHONE ENCOUNTER 07/06/2024 Patient with recent stroke and admitted to [facility] where she was noted to have elevated IOP with retinal detachment of the right eye by consult catering manager. 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 Was contacted about potential transfer to [facility] to be evaluated by retinal specialist. Discussed that given she is currently admitted on neurology floor the decision to transfer to [facility] should be discussed with medicine vs neurology and then ophthalmology service will be able to evaluate her potential retinal detachment and consider intervention as needed. PLAN: - discuss transferring to [facility] with medicine or neurology service - page ophthalmology when arrived - PLAN: VA, IOP, DFE, OCT mac OU, and optos OU Ryan Elizondo MD Ophthalmology Resident documented in this encounter [facility] 07-06-2024 Note Formatting of this n ote might be different from the original. Complicated discharge , live alone, poor vision - PT/OT now ordered- live in mobile home. Consults in progress. Need HHC to follow - does have pcp , script coverage. , tcc met with her family and patient- she is comfortable going home to her mobile hme- has supportive neighbors , family and friends who confirmed will assist ., and drive- her - they do now., the OPHTHALMOLOGY needs to confirm if transfer to [facility] or go home and see a retinal specialist ? Dr Henderson is working on this . With staff. [facility] she is agreeable to it if goes home . Plated 07-06-2024 Note Formatting of this n ote might be different from the original. Complicated discharge , live alone, poor vision - PT/OT now ordered- live in mobile home. Consults in progress. Need [facility] to follow - does have pcp , script coverage. , tcc met with her family and patient- she is comfortable going home to her mobile hme- has supportive neighbors , family and friends who confirmed will assist ., and drive- her - they do now., the OPHTHALMOLOGY needs to confirm if transfer to [facility] or go home and see a retinal specialist ? Dr Henderson is working on this . With staff. [facility] she is agreeable to it if goes home . Plated 07-06-2024 Consult note Formatting of th is note might be different from the original. Ophthalmology follow-up note Exam right eye (OD): Conjunctiva right eye (OD) injected. No discharge. Vision right eye (OD) improved. Now counts fingers at 1 foot. Intraocular pressure (IOP) right eye (OD) measures 10.2 mmHg. Presently on intraocular pressure lowering ophthalmic meds (drops) right eye (OD). Retro-illumination of peripheral laser iridotomy at 2 oclock right eye (OD) indicates patent iridotomy. Pupil right eye (OD) mid-dilated. Funduscopic exam right eye (OD) reveals temporal retinal detachment involving macula right eye (OD). Impression: #1 Status post successful YAG laser iridotomy right eye (OD) for acute angle closure glaucoma. #2 Retinal detachment right eye (OD). 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 Recommendation: Since patient has only one seeing eye, referral to a retinal subspecialist at either [facility] or [facility] for repair of retinal detachment right eye (OD). Continue ophthalmic pressure lowering ophthalmic meds right eye (OD) until seen by retinal subspecialist. [employer] Work Phone: 07-06-2024 Consult note Formatting of th is note might be different from the original. Ophthalmology follow-up note Exam right eye (OD): Conjunctiva right eye (OD) injected. No discharge. Vision right eye (OD) improved. Now counts fingers at 1 foot. Intraocular pressure (IOP) right eye (OD) measures 10.2 mmHg. Presently on intraocular pressure lowering ophthalmic meds (drops) right eye (OD). Retro-illumination of peripheral laser iridotomy at 2 oclock right eye (OD) indicates patent iridotomy. Pupil right eye (OD) mid-dilated. Funduscopic exam right eye (OD) reveals temporal retinal detachment involving macula right eye (OD). Impression: #1 Status post successful YAG laser iridotomy right eye (OD) for acute angle closure glaucoma. #2 Retinal detachment right eye (OD). 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 Recommendation: Since patient has only one seeing eye, referral to a retinal subspecialist at either [facility] or [facility] for repair of retinal detachment right eye (OD). Continue ophthalmic pressure lowering ophthalmic meds right eye (OD) until seen by retinal subspecialist. 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 Patient much more comfortable. Severe headache and nausea and vomiting resolved. Has not received any intraocular pressure lowering ophthalmic drops as recommended due to delays from pharmacy. Intraocular pressure (IOP) right eye (OD) measures 37 mmHg. Down from pre laser intraocular pressure (IOP) of 81.7 mmHg. Vision improved from finger counting 2 inches pre laser to finger counting 6 inches now. Eye appears to be quieter and clearing. Intraocular pressure (IOP) should improve once pressure lowering drops are started. Will continue to follow. Associated Order(s): IP CONSULT TO OPHTHALMOLOGY Ophthalmology ED consult note Present illness: 83 yo female presented to ED early this AM complaining of severe headache and nausea. History of previous retinal detachment left eye (OS) with resulting blindness. Eye examination: Vision finger counting right eye (OD) at 3 inches. Left eye (OS) no light perception (NLP) with opaque cornea and exotropic eye. Exam right eye (OD) revealed injected edematous conjunctiva. Pupil right eye (OD) nonreactive and mid-dilated. Cornea, anterior chamber and iris clear. Anterior chamber shallow. Intraocular pressure (IOP) right eye (OD) measured 81.7 mmHg. Impression: #1 Acute angle closure glaucoma right eye (OD). #2 Status post retinal detachment left eye (OS) by history with eventual resulting blindness. Disposition: Patient taken to Eye clinic and multiple peripheral peripheral iridotomies performed with YAG laser (3) due to thick edematous iris. Intraocular pressure (IOP) following iridotomies 43.4 mmHg right eye (OD), eye much more comfortable and nausea and vomiting terminated. Patient admitted to hospital. Patient is to receive eye drops: Timolol 1% ophthalmic drops-1 drop right eye (OD) bid; Bromonidine ophthalmic drops-1 drop right eye (OD) tid; Dorzolamide Ophthalmic drops-1 drop right eye (OD) tid and Pred forte ophthalmic drops-1 drop right eye (OD) tid. Pred forte drops to be discontinued after 4 days. Associated Order(s): Inpatient consult to Endovascular Neurology--[facility] Inpatient consult to Endovascular Neurology--[facility] Consult performed by: Helga Naik, FOOD SERVICES DIRECTOR - APPLICATIONS PROJECT MANAGER Consult ordered by: Wm Nunes DO Reason for consult: R ICA aneurysm History Of Present Illness Mel Pop is a 83 y.o. female presenting with woke from sleep with sudden severe headache and alteration in vision in right eye. Pt has history of PAD, stroke (06/10), afib on lovenox, CKD, and chronic left eye vision loss. 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 Pt was taken to ophthalmology clinic for emergent treatment of increased ocular pressure. MRI brain is pending at this time. Past Medical History She has a past medical history of Arrhythmia, Asthma, Chronic kidney disease, COPD (chronic obstructive pulmonary disease) ([facility]), DVT (deep venous thrombosis) ([facility]), Essential hypertension (03/07/2020), GERD (gastroesophageal reflux disease), Hiatal hernia, IBS (irritable bowel syndrome), Pure hypercholesterolemia (03/07/2020), PVD (peripheral vascular disease) ([facility]), and Stroke ([facility]). She has no past medical history of Cancer ([facility]) ([facility]), Cerebral artery occlusion with cerebral infarction ([facility]), CHF (congestive heart failure) ([facility]), Diabetes mellitus ([facility]), Hemodialysis patient ([facility]) ([facility]), blood clots, or MDRO (multiple drug resistant organisms) resistance. Surgical History She has a past surgical history that includes Finger amputation (Right, 03/07/2020); orthopedic surgery; Hysterectomy; Thrombectomy (Right, 04/06/2024); Eye surgery; Colonoscopy; Esophageal dilation; Ankle surgery; and Arm Surgery (Right). Social History She reports that she has quit smoking. Her smoking use included cigarettes. She has never used smokeless tobacco. She reports that she does not currently use alcohol after a past usage of about 1.0 standard drink of alcohol per week. She reports that she does not use drugs. Allergies Advair hfa [fluticasone-salmeterol], Amoxicillin, and Percocet [oxycodone-acetaminophen] Medications (Not in a hospital admission) Review of Systems Constitutional: Positive for activity change. HENT: Negative. Eyes: Positive for pain and visual disturbance. Respiratory: Negative. Cardiovascular: Negative. Gastrointestinal: Negative. Endocrine: Negative. Genitourinary: Negative. Musculoskeletal: Positive for neck pain. Skin: Negative. Allergic/Immunologic: Negative. Neurological: Positive for headaches. Hematological: Negative. Psychiatric/Behavioral: The patient is nervous/anxious. Neurological Exam Mental Status Alert. Oriented to person, place, time and situation. Recent and remote memory are intact. Speech is normal. Language is fluent with no aphasia. Attention and concentration are normal. R pupil dilated 2/2 procedure/ medications Left eye opaque, no reactive TRUJILLO x 4 Severe headache Sensation intact Physical Exam Cardiovascular: Rate and Rhythm: Normal rate and regular rhythm. Pulmonary: Effort: Pulmonary effort is normal. Breath sounds: Normal breath sounds. Skin: General: Skin is warm and dry. Capillary Refill: Capillary refill takes less than 2 seconds. Neurological: Mental Status: She is alert. Psychiatric: Speech: Speech normal. Last Recorded Vitals Blood pressure (!) 156/58, pulse 61, temperature 36.4 C (97.6 F), temperature source Axillary, resp. rate 14, height 1.626 m (5' 4"), weight 72.6 kg (160 lb), SpO2 97%. Relevant Results mpression 1. No acute intracranial hemorrhage or territorial infarct. Chronic left cerebellar infarct. 2. 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 3. Moderate focal narrowing at the origin of left vertebral artery. 4. No regional areas of infarct or penumbra seen on CT perfusion imaging. 5. Ellipsoid mixed attenuation densities in the right ocular globe, new from 04/03/2024. These may be areas of intraocular hemorrhage among other possibilities. 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 Recommend close monitoring of blood pressure and continued smoking cessation 30 minute MERLIN time spent reviewing chart and images as well as completing assessment and plan. Pt seen and discussed with Dr. Lombardi Attending Note: Patient seen independently and examined at bedside with my MERLIN. I performed a history and physical examination of the patient as well as have personally reviewed imaging documented in the note. Management dicussed with my MERLIN during rounds. I reviewed the note and agree with the History, physical examination, documented findings and plan of care with the following addendum: 83 yo woman sudden severe headache and vomiting, likely attributed to acute glaucoma. No evidence of hemorrhage on CT (done 2 hours after symptom onset) or MRI (approx 10 hours). Incidental finding of 3mm cavernous carotid artery noted and images reviewed with patient and daughter. We discussed aneurysm rupture risk, stroke risk factors, and warning signs. Discussed imaging and treatment options, benefits, risks, and alternatives. At this time recommend continued smoking cessation and BP control. Can fu in outpatient endovascular clinic in 6 months for vascular surveillance. Please call with questions. MD Maria C Personal discussion of test results and plan of care with: Family, ., ., ., . Personal review of: Imaging,Labs,Old Records},.},. Associated Order(s): IP CONSULT TO STROKE TEAM STROKE TEAM NOTE Patient Name: Mel Pop Patient : 1940 Acct: [id number] Date of Admission: 07/05/2024 Room/Bed: 60/60 PCP: aJred Evans MD Stroke team; ED History of Present Ilness: 83 y.o. female with past medical history of Afib on Lovenox (previously had clot while on Eliquis), left atrial myxoma, L retinal detachment, severe LE PAD, hypertension, hyperlipidemia, asthma, GERD, and Left cerebellar infarct in May 2024 with chief Complaint of:worst headache of her life and decreased vision. Patient notes that at about 2:30am this morning she woke up with a severe headache with radiation down her neck. She notes decreased vision at baseline but reports she started seeing colored purple and white spots in her vision. Pain is described as pressure and throbbing mostly around bilateral eyes. Endorses nausea and vomiting. States she went to bed at around 9:30pm last night and is currently on Lovenox for her Afib. In ED, patient was hypertensive at 197/99 with HR of 63. Labs were remarkable for hemoglobin 10.6. INR was at 1.0 and aPTT at 30.4. 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 CT perfusion showed no regional areas of infarct. Additionally, imaging showed areas of intraocular hemorrhage of right eye. She was given 10mg of hydralazine for blood pressure control and ophthalmology was consulted. Onset time: last seen well;9:30PM 07/04/24 ED arrival: 4:22AM Stroke teamactivation 04:23 AM NIHSS upon arrival:3 Associated symptoms: headache, nausea, visual changes This occurred in the setting of:waking up from sleep Current use of anticoagulants: Lovenox 70mg BID If on anticoagulants when was last dose:07/04/24 unsure of time Preadmission secondary prevention antiplatelets and statins:None History of AF:yes Contraindications for thrombolytic treatment: Yes Past Medical History: Past Medical History: Diagnosis Date Arrhythmia PAF Asthma Chronic kidney disease COPD (chronic obstructive pulmonary disease) ([facility]) DVT (deep venous thrombosis) ([facility]) Essential hypertension 03/07/2020 GERD (gastroesophageal reflux disease) Hiatal hernia IBS (irritable bowel syndrome) Pure hypercholesterolemia 03/07/2020 PVD (peripheral vascular disease) ([facility]) Stroke ([facility]) Past Surgical History: Past Surgical History: Procedure Laterality Date ANKLE SURGERY ARM SURGERY (HISTORICAL) Right COLONOSCOPY ESOPHAGEAL DILATION EYE SURGERY 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 HYSTERECTOMY ORTHOPEDIC SURGERY THROMBECTOMY Right 04/06/2024 RLE mechanical thrombectomy (Krzysztof) Home Medications: Prior to Admission medications Medication Sig Start Date End Date Taking? Authorizing Provider albuterol 108 (90 Base) MCG/ACT inhaler inhale 1 puff by mouth and INTO THE LUNGS every 6 hours if needed for shortness of breath 02/17/23 Historical Provider, ascorbic acid (Vitamin C) 500 MG tablet Take 500 mg by mouth in the morning and 500 mg at noon and 500 mg in the evening. 06/28/22 Historical Provider, ergocalciferol (Vitamin D2) 1.25 MG (54492 UT) capsule Take 1.25 mg by mouth 1 (one) time per week. Historical Provider, furosemide (Lasix) 40 MG tablet TAKE 1 TABLET BY MOUTH EVERY DAY NEEDED SWELLING 04/20/24 Historical Provider, lisinopril 5 MG tablet Take 5 mg by mouth in the morning. 05/26/22 Historical Provider, metoprolol tartrate (Lopressor) 25 MG tablet Take 25 mg by mouth in the morning and 25 mg in the evening. Take with meals. Take with food.. 03/12/24 Historical Provider, pantoprazole (ProtoNix) 40 MG EC tablet 07/18/23 Historical Provider, MD Flores Ellipta 100-62.5-25 MCG/ACT aerosol powder 05/19/23 Historical Provider, warfarin (Coumadin) 5 MG tablet Take as directed by [facility] (90 tablets = 90 day supply). Current dose: 5 mg daily. 06/01/24 Ryan Valdez MD Current Hospital Medications: Current Facility-Administered Medications: fentaNYL (Sublimaze) injection 25 mcg, 25 mcg, IntraVENous, Once, Wm Mudrakola, DO labetalol (Normodyne,Trandate) injection 10 mg, 10 mg, IntraVENous, q10 min PRN, Wm Mudrakola, DO sodium chloride 0.9 % bolus 250 mL, 250 mL, IntraVENous, Once, Wm Mudrakola, DO sodium chloride 0.9 % infusion, 5-250 mL/hr, IntraVENous, PRN, Wm Mudrakola, DO sodium chloride 0.9 % infusion, 50 mL/hr, IntraVENous, Continuous, Wm Mudrakola, DO sodium chloride 0.9% (NS) flush 5-40 mL, 5-40 mL, IntraVENous, q12h, Wm Mudrakola, DO sodium chloride 0.9% (NS) flush 5-40 mL, 5-40 mL, IntraVENous, PRN, Wm Mudrakola, DO Current Outpatient Medications: albuterol 108 (90 Base) MCG/ACT inhaler, inhale 1 puff by mouth and INTO THE LUNGS every 6 hours if needed for shortness of breath, Disp: , Rfl: ascorbic acid (Vitamin C) 500 MG tablet, Take 500 mg by mouth in the morning and 500 mg at noon and 500 mg in the evening., Disp: , Rfl: ergocalciferol (Vitamin D2) 1.25 MG (60943 UT) capsule, Take 1.25 mg by mouth 1 (one) time per week., Disp: , Rfl: furosemide (Lasix) 40 MG tablet, TAKE 1 TABLET BY MOUTH EVERY DAY NEEDED SWELLING, Disp: , Rfl: lisinopril 5 MG tablet, Take 5 mg by mouth in the morning., Disp: , Rfl: metoprolol tartrate (Lopressor) 25 MG tablet, Take 25 mg by mouth in the morning and 25 mg in the evening. Take with meals. Take with food.., Disp: , Rfl: pantoprazole (ProtoNix) 40 MG EC tablet, , Disp: , Rfl: Trelegy Ellipta 100-62.5-25 MCG/ACT aerosol powder , , Disp: , Rfl: warfarin (Coumadin) 5 MG tablet, Take as directed by [facility]tico[facility] (90 tablets = 90 day supply). Current dose: 5 mg daily., Disp: 90 tablet, Rfl: 0 Continuous Infusions: sodium chloride, 50 mL/hr Allergies: Advair hfa [fluticasone-salmeterol], Amoxicillin, and Percocet [oxycodone-acetaminophen] Social History: TOBACCO: reports that she has quit smoking. Her smoking use included cigarettes. She has never used smokeless tobacco. ETOH: reports that she does not currently use alcohol after a past usage of about 1.0 standard drink of alcohol per week. RECREATIONAL DRUG USE: Social History Substance and Sexual Activity Drug Use Never FamilyHistory: :. Family History Problem Relation Name Age of Onset Melanoma Father ROS; :A complete review of system was performed , pertinent positives noted and remainderare negative Review of Systems Eyes: Left eye with presence of blood pooling on conjuctiva. No evidence of foreign body or opacity. Painful to light and extraocular movement. Cardiovascular: Negative. Physical Examination: Patient Vitals for the past 8 hrs: BP Pulse SpO2 Weight 07/05/24 0434 (!) 197/99 65 99 % -- 07/05/24 0429 -- -- -- 160 lb (72.6 kg) 07/05/24 0428 (!) 160/105 63 -- -- No intake/output data recorded. VITAL SIGNS : HR 63 , BP 197/99 , RR 20. Pulse Ox 99 Neurological Examination: Higher Functions: Mental Status Exam: Level of Alertness:Awake Orientation: Normal to self, time, place Memory: Normal Fund of Knowledge: Normal Language: Normal Dysarthria not present Cranial Nerves: -II Visual acuity: abnormal, limited due to patient unable to perform exam -II Visual maretll: poor reliability due to patient level ofconsciousness or structural limitation -III Pupils ) equal, round, reactive to light -III-IV- Extraocular Movements: abnormal limited due to pain -Nystagmus not present -Saccades and pursuits normal -V Facial sensation: intact Corneal's Limited due to pain -VII Facial strength: intact -VIII Hearing: intact -IX-X- Gag reflex present -X Palate:intact -XI Shoulder shrug: "intact"normal -XII Tongue movement: normal Funduscopic Exam: normal, no edema or exudates both eyes Sensory Intact to light touch, pain / temperature, proprioception, Coordination: Arms Normal finger to nose Legs Intact heel knee taveras testing Tremors not present Gait abnormal, patient unable to walk due to acute circumstances / bedrest / safety concerns NIHSS 1a Level of consciousness: 0=alert; keenly responsive 1b. LOC questions: 0=Performs both tasks correctly 1c. LOC commands: 0=Performs both tasks correctly 2. Best Gaze: 0=normal 3. Visual: 2=Complete hemianopia 4. Facial Palsy: 0=Normal symmetric movement 5a. Motor left arm: 0=No drift, limb holds 90 (or 45) degrees for full 10 seconds 5b. Motor right arm: 0=No drift, limb holds 90 (or 45) degrees for full 10 seconds 6a. motor left le=No drift, limb holds 90 (or 45) degrees for full 10 seconds 6b Motor right le=No drift, limb holds 90 (or 45) degrees for full 10 seconds 7. Limb Ataxia: 0=Absent 8. Sensory: 0=Normal; no sensory loss 9. Best Language: 0=No aphasia, normal 10. Dysarthria: 0=Normal 11. Extinction and Inattention: 0=No abnormality 12. Distal motor function: 0=Normal Total: 2 Pre-admission Modified [place] Score: 1 __ 0 No symptoms at all __ 1 No significant disability despite symptoms; able to carry out all usual duties and activities __ 2 Slight disability; unable to carry out all previous activities, but able to look after own affairs without assistance __ 3 Moderate disability; requiring some help, but able to walk without assistance __ 4 Moderately severe disability; unable to walk without assistance and unable to attend to own bodily needs without assistance __ 5 Severe disability; bedridden, incontinent and requiring constant nursing care and attention Ancillary Data: Labs: Recent Results (from the past 24 hours) POCT glucose meter Collection Time: 07/05/24 4:26 AM Result Value Ref Range Glucose 104 (H) 70 - 100 mg/dL CBC Collection Time: 07/05/24 4:35 AM Result Value Ref Range Auto WBC 5.5 3.6 - 10.7 10*3/uL RBC 4.01 3.80 - 5.20 10*6/uL Hemoglobin 10.6 (L) 11.7 - 16.0 g/dL Hematocrit 32.8 (L) 35.0 - 47.0 % MCV 81.8 77.0 - 99.0 fL MCH 26.4 26.0 - 34.0 pg MCHC 32.3 30.5 - 36.0 % RDW 17.2 (H) 11.5 - 15.0 % Platelets 349 140 - 440 10*3/uL MPV 9.6 9.0 - 12.7 fL BMPI iSTAT (Lab Only) Collection Time: 07/05/24 4:41 AM Result Value Ref Range Sodium, WB 139 133 - 145 mmol/L POTASSIUM,WB 4.5 3.4 - 5.1 mmol/L CHLORIDE,WB 108 98 - 114 mmol/L CO2 WHOLE BLOOD 23 21 - 29 mmol/L ANION GAP 8.00 3.00 - 13.00 GLUCOSE, WB 104 (H) 70 - 100 mg/dL UREA NITROGEN, WB 14 4 - 22 mg/dL eGFR, Whole Blood 63.2 CREATININE, WB 0.9 0.6 - 1.3 mg/dL CALCIUM,IONIZED 4.50 4.30 - 5.20 mg/dl No results for input(s): "PH", "PO2", "PCO2", "HCO3", "O2SAT" in the last 72 hours. No lab exists for component: "BE" No results for input(s): "INR" in the last 72 hours. Radiology: CT head wo IV contrast Final Result 1. No acute intracranial hemorrhage or territorial infarct. Chronic left cerebellar infarct. 2. 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 3. Moderate focal narrowing at the origin of left vertebral artery. 4. No regional areas of infarct or penumbra seen on CT perfusion imaging. 5. Ellipsoid mixed attenuation densities in the right ocular globe, new from 04/03/2024. These may be areas of intraocular hemorrhage among other possibilities. CRITICAL TEST RESULT COMMUNICATION: Critical findings discussed with Dr. Shabazz at 07/05/2024 4:46 AM EST. Report Dictated on Workstation: Mozy Electronically Signed By: Cirilo Ray DR Electronically Signed Date/Time: 07/05/2024 5:03 AM EST CTA head neck angio w and wo IV contrast Final Result 1. No acute intracranial hemorrhage or territorial infarct. Chronic left cerebellar infarct. 2. 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 3. Moderate focal narrowing at the origin of left vertebral artery. 4. No regional areas of infarct or penumbra seen on CT perfusion imaging. 5. Ellipsoid mixed attenuation densities in the right ocular globe, new from 04/03/2024. These may be areas of intraocular hemorrhage among other possibilities. CRITICAL TEST RESULT COMMUNICATION: Critical findings discussed with Dr. Shabazz at 07/05/2024 4:46 AM EST. Report Dictated on Electronically Signed By: Cirilo Ray DR Electronically Signed Date/Time: 07/05/2024 5:[address] PERFUSION Final Result 1. No acute intracranial hemorrhage or territorial infarct. Chronic left cerebellar infarct. 2. 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 3. Moderate focal narrowing at the origin of left vertebral artery. 4. No regional areas of infarct or penumbra seen on CT perfusion imaging. 5. Ellipsoid mixed attenuation densities in the right ocular globe, new from 04/03/2024. These may be areas of intraocular hemorrhage among other possibilities. CRITICAL TEST RESULT COMMUNICATION: Critical findings discussed with Dr. Shabazz at 07/05/2024 4:46 AM EST. Report Dictated on Electronically Signed By: Cirilo Ray DR Electronically Signed Date/Time: 07/05/2024 5:03 AM EST ASSESSMENT Control blood pressure, SBP <150 Emergent ophthalmology consult MRI in AM Treat as aneurysm Endovascular consult for aneurysm PLAN/RECOMMENDATIONS: Reason for no use of thrombolytic if applicable:NOT A STROKE Reason if no thrombectomy if applicable: not identified vascular occlusion accesable for intervention ICH score: GCS score at presentation:.points ICH volume (ABC/2 cm3): . points Intraventricular hemorrhage: No= 0 points Origin of ICH : . points Age: > 80 =1 points Final score :N/A SAH H&H score: __ 1 No symptoms at all. minimal headache and slight nuchal rigidity __ 1 Minimal headache and or slight nuchal rigidity NO FOCAL DEFICITS __ 2 Severe headache or nuchal rigidity, NO Focal neurological deficits EXCEPT for CN palsy __ 3 Drowsiness with minimal neurological deficits __ 4 Stupor; moderate to severe hemiparesis; possible early decerebrate rigidity and vegetative disturbances __ 5 Deep coma; decerebrate rigidity; moribund Final score [address] Shabazz Cosigned by Sirisha Shabazz MD at 07/05/2024 3:26 PM EST Associated attestation - Sirisha Shabazz MD - 07/05/2024 3:26 PM EST Neuro Critical Care / stroke Attending Patient seen via remote access , personal discussion however with significant aid from the resident at bedside as patient was uncomfortable do to pain around her right eye She developed her sudden headache and visual changes at the same time , Her CT suggested presence of a heterogenous density on her right orbit , new when comparing to the prior studies which could represent a retine detachment or a vitreous hemorrhage We consulted ophthalmology stat who identified acute angle closure glaucoma, and vitreous hemorrhage This was felt to be the cause of her headache and sudden visual changes and NOT a stroke The remaining of her imaging's CT head was normal other than above CTP was negative CTA head and neck significant for the presence of right 3 mm cavernous aneurysm, this was felt to be an incidental finding, however because of the anatomicals location in ipsilateral eye decided to ask endovascular to see while in the hospital , If no need to do anything as inpatient at least they can follow up as outpatient Since evaluation this morning MRI brain also obtained ( this was to ensure absence of pathology around the area of the aneurysm ) This demonstrated NO acute findings , Since evaluation this morning ,endovascular has seen patient and also plan to follow up aneurysm in 6 months as outpatient I personally interviewed and examined this patient , reviewed , corrected, agreed and attested the note for this patient. I reviewed the chart including MAR, labs, neuroimaging, other imaging studies and discussed my diagnostic impression and patient's plan of care with my [facility]/resident/ Fellow , student and the consulting team and patient's family members/surrogate decision makers (in cases where the patient is incapacitated and unable to participate in their own care). [x] Encounter Remote acces [x] Critical care time [x] Time spend [x] 50 [x] No longer neurological follow up needed, will sign off, let us know if need for further assistance Personal discussion of test results and plan of care with: Patient treatments and testing options informed consent and plan of care, ED physician, Neuroradiology, Interventional team, . Thank you Jared Evans MD for the opportunity to be involved in this patient's care. documented in this encounter [facility] 07-05-2024 Consult note Formatting of th is note might be different from the original. 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 Patient much more comfortable. Severe headache and nausea and vomiting resolved. Has not received any intraocular pressure lowering ophthalmic drops as recommended due to delays from pharmacy. Intraocular pressure (IOP) right eye (OD) measures 37 mmHg. Down from pre laser intraocular pressure (IOP) of 81.7 mmHg. Vision improved from finger counting 2 inches pre laser to finger counting 6 inches now. Eye appears to be quieter and clearing. Intraocular pressure (IOP) should improve once pressure lowering drops are started. Will continue to follow. [facility] 07-05-[address] Carlson at bedside. [facility] 07-05-[address] Carlson at bedside. Provider notified of patient request for pain meds. Dr. Carlson at bedside Patient is returning back to room 32 at this time with Jose, Medic. Pt currently at eye clinic with RADHA Hinkle for emergent eye laser procedure. Pt emergently going to eye clinic. Pt being transported in wheelchair with trauma float RADHA Hinkle and Maritza FRAGA Pt being transported on zoll monitor and acls kit. Ophthalmology at bedside Report to Maritza FRAGA Emergency Department Encounter Location: [facility] EMERGENCY DEPT Patient: Mel Pop : 1940 Date of evaluation: 07/05/2024 ED Provider: Jhonatan Hernandez MD Time received sign-out: 0700 Mel Pop was checked out to me by Dr. Nunes. Please see his/her initial documentation for details of the patient's initial ED presentation, physical exam and completed studies. In brief, Mel Pop is a 83 y.o. adult that presented to the emergency department with right eye vision loss and a headache. I have reviewed and interpreted all of the currently available lab results and diagnostics from this visit: Results for orders placed or performed during the hospital encounter of 07/05/24 POCT glucose meter Collection Time: 07/05/24 4:26 AM Result Value Ref Range Glucose 104 (H) 70 - 100 mg/dL CBC Collection Time: 07/05/24 4:35 AM Result Value Ref Range Auto WBC 5.5 3.6 - 10.7 10*3/uL RBC 4.01 3.80 - 5.20 10*6/uL Hemoglobin 10.6 (L) 11.7 - 16.0 g/dL Hematocrit 32.8 (L) 35.0 - 47.0 % MCV 81.8 77.0 - 99.0 fL MCH 26.4 26.0 - 34.0 pg MCHC 32.3 30.5 - 36.0 % RDW 17.2 (H) 11.5 - 15.0 % Platelets 349 140 - 440 10*3/uL MPV 9.6 9.0 - 12.7 fL Serial Troponin, High Sensitivity Collection Time: 07/05/24 4:35 AM Result Value Ref Range Troponin HS, Serial Baseline 14 <=14 ng/L PROTIME/INR & PTT Collection Time: 07/05/24 4:35 AM Result Value Ref Range PROTHROMBIN TIME 11.7 9.0 - 12.0 s INR 1.0 0.9 - 1.1 APTT 30.4 20.0 - 30.5 s BMPI iSTAT (Lab Only) Collection Time: 07/05/24 4:41 AM Result Value Ref Range Sodium, WB 139 133 - 145 mmol/L POTASSIUM,WB 4.5 3.4 - 5.1 mmol/L CHLORIDE,WB 108 98 - 114 mmol/L CO2 WHOLE BLOOD 23 21 - 29 mmol/L ANION GAP 8.00 3.00 - 13.00 GLUCOSE, WB 104 (H) 70 - 100 mg/dL UREA NITROGEN, WB 14 4 - 22 mg/dL eGFR, Whole Blood 63.2 CREATININE, WB 0.9 0.6 - 1.3 mg/dL CALCIUM,IONIZED 4.50 4.30 - 5.20 mg/dl ECG 12 lead if not already done by Squad Collection Time: 07/05/24 5:54 AM Result Value Ref Range Heart Rate 59 bpm QRSD Interval 98 ms QT Interval 423 ms QTC Interval 418 ms P [place] 0 degrees QRS [place] 37 degrees T Wave [place] 29 degrees ND Interval 0 ms Troponin, High Sensitivity, Serial, Second Test Collection Time: 07/05/24 8:33 AM Result Value Ref Range Troponin HS, Serial Second 9 <=14 ng/L Troponin HS Delta, Baseline to Second -5 <=2 ng/L Comprehensive metabolic panel Collection Time: 07/05/24 8:33 AM Result Value Ref Range SODIUM 139 136 - 145 mmol/L POTASSIUM 4.3 3.5 - 5.1 mmol/L CHLORIDE 107 98 - 107 mmol/L CARBON DIOXIDE 22 (L) 23 - 31 mmol/L ANION GAP 10 3 - 13 mmol/L UREA NITROGEN 13 9 - 23 mg/dL CREATININE 0.82 0.57 - 1.11 mg/dL GLUCOSE 118 (H) 82 - 115 mg/dL CALCIUM 9.2 8.8 - 10.0 mg/dL AST (SGOT) 26 <34 U/L ALT 23 <30 U/L ALKALINE PHOSPHATASE 94 40 - 150 U/L ALBUMIN 3.6 3.4 - 4.8 g/dL BILIRUBIN, TOTAL 0.7 <1.2 mg/dL TOTAL PROTEIN 7.0 6.4 - 8.3 g/dL eGFR 70.6 >60.0 mL/min/1.73m*2 Hemoglobin A1c Collection Time: 07/05/24 8:33 AM Result Value Ref Range HEMOGLOBIN A1C 5.8 (H) <5.7 %HbA1C ESTIMATED AVERAGE GLUCOSE 120 mg/dL MR brain wo contrast Final Result 1. Regions of old infarct in the cerebellar hemispheres and right middle cerebral artery territory 2. No acute intracranial abnormality. Report Dictated on Electronically Signed By: Ming Fry MD Electronically Signed Date/Time: 07/05/2024 12:[address] head wo IV contrast Final Result 1. No acute intracranial hemorrhage or territorial infarct. Chronic left cerebellar infarct. 2. 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 3. Moderate focal narrowing at the origin of left vertebral artery. 4. No regional areas of infarct or penumbra seen on CT perfusion imaging. 5. Ellipsoid mixed attenuation densities in the right ocular globe, new from 04/03/2024. These may be areas of intraocular hemorrhage among other possibilities. CRITICAL TEST RESULT COMMUNICATION: Critical findings discussed with Dr. Shabazz at 07/05/2024 4:46 AM EST. Report Dictated on Electronically Signed By: Cirilo Ray DR Electronically Signed Date/Time: 07/05/2024 5:03 AM EST CTA head neck angio w and wo IV contrast Final Result 1. No acute intracranial hemorrhage or territorial infarct. Chronic left cerebellar infarct. 2. 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 3. Moderate focal narrowing at the origin of left vertebral artery. 4. No regional areas of infarct or penumbra seen on CT perfusion imaging. 5. Ellipsoid mixed attenuation densities in the right ocular globe, new from 04/03/2024. These may be areas of intraocular hemorrhage among other possibilities. CRITICAL TEST RESULT COMMUNICATION: Critical findings discussed with Dr. Shabazz at 07/05/2024 4:46 AM EST. Report Dictated on Electronically Signed By: Cirilo Ray DR Electronically Signed Date/Time: 07/05/2024 5:[address] PERFUSION Final Result 1. No acute intracranial hemorrhage or territorial infarct. Chronic left cerebellar infarct. 2. 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 3. Moderate focal narrowing at the origin of left vertebral artery. 4. No regional areas of infarct or penumbra seen on CT perfusion imaging. 5. Ellipsoid mixed attenuation densities in the right ocular globe, new from 04/03/2024. These may be areas of intraocular hemorrhage among other possibilities. CRITICAL TEST RESULT COMMUNICATION: Critical findings discussed with Dr. Shabazz at 07/05/2024 4:46 AM EST. Report Dictated on Electronically Signed By: Cirilo Ray DR Electronically Signed Date/Time: 07/05/2024 5:03 AM EST Final ED Course and MDM: Mel Pop is a 83 y.o. whose care was signed out to me by the outgoing provider. In brief, this patient presents with right eye vision loss and headache. Stroke code was called. An aneurysm was found on CT angiogram. CT perfusion showed no regional areas of infarct. Imaging also showed areas of intraocular hemorrhage in the right eye. Ophthalmology was consulted. Dr. Carlson from ophthalmology evaluated the patient. He noted increased intraocular pressure in the right eye. He took the patient emergently to his eye clinic and performed a iridotomy. Placed recommendations for eyedrops for further treatment of glaucoma and I placed the orders for these meds. Agreed with admission. In the interim, patient received an MRI brain that showed older infarcts. Will continue with admission given the persistent hypertension and also for treatment of glaucoma. Pt continued to have headache so ordered morphine 4 mg IV. I discussed [place]. Peres [place] [facility] [place] who accepted the admit. Medications sodium chloride 0.9% (NS) flush 5-40 mL ( IntraVENous Not Given 07/05/24 0430) sodium chloride 0.9% (NS) flush 5-40 mL (has no administration in time range) sodium chloride 0.9 % infusion (has no administration in time range) sodium chloride 0.9 % infusion (50 mL/hr IntraVENous Rate/Dose Verify 07/05/24 0922) labetalol (Normodyne,Trandate) injection 10 mg (has no administration in time range) sodium chloride 0.9% (NS) flush 10 mL (10 mL IntraVENous Not Given 07/05/24 0900) sodium chloride 0.9% (NS) flush 10 mL (has no administration in time range) ondansetron ODT (Zofran-ODT) disintegrating tablet 4 mg ( Oral See Alternative 07/05/24 1228) Or ondansetron (Zofran) injection 4 mg (4 mg IntraVENous Given 07/05/24 1228) bisacodyl (Dulcolax) suppository 10 mg (has no administration in time range) magnesium sulfate 1,000 mg in sodium chloride 0.9 % 100 mL IVPB (has no administration in time range) hydrALAZINE (Apresoline) injection 10 mg (10 mg IntraVENous Given 07/05/24 1226) naloxone (Narcan) injection 0.4 mg (has no administration in time range) HYDROmorphone (Dilaudid) injection 0.25 mg ( IntraVENous See Alternative 07/05/24 1005) Or HYDROmorphone (Dilaudid) injection 0.5 mg (0.5 mg IntraVENous Given 07/05/24 1005) timolol (Timoptic) 0.5 % ophthalmic solution 1 drop (has no administration in time range) brimonidine (AlphaGAN) 0.2 % ophthalmic solution 1 drop (has no administration in time range) dorzolamide (Trusopt) 2 % ophthalmic solution 1 drop (has no administration in time range) prednisoLONE acetate (Pred-Forte) 1 % ophthalmic suspension 1 drop (1 drop Right Eye Given 07/05/24 1235) morphine injection 4 mg (has no administration in time range) sodium chloride 0.9 % bolus 250 mL (0 mL IntraVENous Stopped 07/05/24 0642) iopamidol (Isovue-370) 76 % injection 100 mL (100 mL IntraVENous Given 07/05/24 0440) ondansetron (Zofran) injection 4 mg (4 mg IntraVENous Given 07/05/24 0445) fentaNYL (Sublimaze) injection 25 mcg (25 mcg IntraVENous Given 07/05/24 0451) hydrALAZINE (Apresoline) injection 10 mg (10 mg IntraVENous Given 07/05/24 0517) I am not the ice cream chef of record. Dr. Nunes is the ice cream chef of record. Final Impression 1. Vision loss of right eye 2. Acute intractable headache, unspecified headache type DISPOSITION Observation 07/05/2024 01:21:52 PM (Please note that portions of this note may have been completed with a voice recognition program. Efforts were made to edit the dictations but occasionally words are mis-transcribed.) Jhonatan Hernandez MD [employer] Jhonatan Hernandez MD 07/05/24 1322 documented in this encounter [facility] 07-05-2024 Note Formatting of this n ote is different from the original. [employer] Mel Pop : 1940 Primary Care Physician: Jared Evans MD The patient and/or family/surrogate voluntarily agreed to participate in ACP services. Patient s cognitive capacity: intact Code Status: [ ] [FULL CODE - Continue all advanced life support: CPR,intubation,invasive procedures] [ X ] [DNR-CCA - DO NOT do CPR, intubation] [_] [DNR-STEAMER TENDER - Comfort care only] [_] DNR form [was/was not] signed Summary of discussion: The patient health care POA/ surrogate is the following: Fidel STAPLETON (Bacel) I answered all the patient/family questions that I could within the range and scope of the current medical situation. We discussed the medical conditions, risks, benefits, outcomes, and goals of care at this time for the patient's medical issues at hand in the face of the patient's chronic issues and current presentation. Total time spent: 2 minutes were spent discussing the patient's resuscitation status, advance care planning, and end of life care, with patient and/or family/surrogate. Silvio Peres MD [facility] 07/05/2024, 1:18 PM [facility] 07-05-2024 Note Formatting of this n ote is different from the original. [employer] Mel Pop : 1940 Primary Care Physician: Jared Evans MD The patient and/or family/surrogate voluntarily agreed to participate in ACP services. Patient s cognitive capacity: intact Code Status: [ ] [FULL CODE - Continue all advanced life support: CPR,intubation,invasive procedures] [ X ] [DNR-CCA - DO NOT do CPR, intubation] [_] [DNR-STEAMER TENDER - Comfort care only] [_] DNR form [was/was not] signed Summary of discussion: The patient health care POA/ surrogate is the following: Fidel STAPLETON (Bacel) I answered all the patient/family questions that I could within the range and scope of the current medical situation. We discussed the medical conditions, risks, benefits, outcomes, and goals of care at this time for the patient's medical issues at hand in the face of the patient's chronic issues and current presentation. Total time spent: 2 minutes were spent discussing the patient's resuscitation status, advance care planning, and end of life care, with patient and/or family/surrogate. 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 female with past medical history below who presents with chief complaint listed above. 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 Of note just discharged from rehab on 07/03/2024 after recently being hospitalized for CVA. She was doing okay at home until 07/04/2024 morning when she noted blurriness in her vision, that subsequently slightly improved over the course of the day. They initially attributed it to possible allergies or dust after returning home after prolonged absence. However this morning she woke up with severe pain behind her right eye into her head, as well as complete loss of vision, swelling of her right eye with significant redness. She was nauseous and vomiting. She presented to the ED immediately for further evaluation. ED Course: Vital signs notable for elevated blood pressure, otherwise stable, afebrile. Labs unremarkable. 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 CT perfusion showed no regional areas of infarct. MRI brain regions of old infarct in the cerebellar hemispheres and right middle cerebral artery territory. Ophthalmology, Dr. 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 Eyedrop recommendations made and ordered. She remains quite symptomatic in regards to nausea and eye pain, however very much improved as compared to previously Will admit for further evaluation and management. Patient was discussed with ED provider, Dr. Hernandez, who agrees with plan for admission. Past Medical History: Past Medical History: Diagnosis Date Arrhythmia PAF Asthma Chronic kidney disease COPD (chronic obstructive pulmonary disease) (HCC) DVT (deep venous thrombosis) (HCC) Essential hypertension 03/07/2020 GERD (gastroesophageal reflux disease) Hiatal hernia IBS (irritable bowel syndrome) Pure hypercholesterolemia 03/07/2020 PVD (peripheral vascular disease) (HCC) Stroke (HCC) Past Surgical History: Past Surgical History: Procedure Laterality Date ANKLE SURGERY ARM SURGERY (HISTORICAL) Right COLONOSCOPY ESOPHAGEAL DILATION EYE SURGERY 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 HYSTERECTOMY ORTHOPEDIC SURGERY THROMBECTOMY Right 04/06/2024 RLE mechanical thrombectomy (Krzysztof) Social History: Social History Socioeconomic History Marital status: Spouse name: Not on file Number of children: Not on file Years of education: Not on file Highest education level: Not on file Occupational History Not on file Tobacco Use Smoking status: Former Current packs/day: 0.50 Types: Cigarettes Smokeless tobacco: Never Substance and Sexual Activity Alcohol use: Not Currently Alcohol/week: 1.0 standard drink of alcohol Types: 1 Cans of beer per week Comment: occ Drug use: Never Sexual activity: Not on file Other Topics Concern Not on file Social History Narrative Not on file Social Drivers of Health Financial Resource Strain: Low Risk (06/20/2024) Received from [facility] Overall Financial Resource Strain (CARDIA) Difficulty of Paying Living Expenses: Not very hard Food Insecurity: No Food Insecurity (06/20/2024) Received from [facility] Hunger Vital Sign Worried About Running Out of Food in the Last Year: Never true Ran Out of Food in the Last Year: Never true Transportation Needs: No Transportation Needs (07/02/2024) Received from [facility] [place] Transportation Source Has lack of transportation kept you from medical appointments or from getting medications?: No Has lack of transportation kept you from meetings, work, or from getting things needed for daily living?: No Physical Activity: Inactive (04/04/2024) Exercise Vital Sign Days of Exercise per Week: 0 days Minutes of Exercise per Session: 0 min Stress: No Stress Concern Present (06/19/2024) Received from [facility] [employer] [facility] [employer] - Occupational Stress Questionnaire Feeling of Stress : Not at all Social Connections: Moderately Isolated (06/20/2024) Received from [facility] Social Connection and Isolation Panel [NHANES] Frequency of Communication with Friends and Family: More than three times a week Frequency of Social Gatherings with Friends and Family: Once a week Attends [employer] Services: More than 4 times per year Active Member of Clubs or Organizations: No Attends Club or Organization Meetings: Never Marital Status: Intimate Partner Violence: Not At Risk (06/19/2024) Received from [facility] Domestic Abuse Assessment Do you feel safe in your relationships at home?: Yes Physical Abuse: Denies [facility] Domestic Abuse - Type of Abuse: Not on file [facility] Domestic Abuse - Time Frame: Not on file [facility] Domestic Abuse - Signs and Symptoms: Not on file Verbal Abuse: Denies [facility] Domestic Abuse - Reported To: Not on file Housing Stability: Low Risk (06/20/2024) Received from [facility] Housing Stability Vital Sign Unable to Pay for Housing in the Last Year: No Number of Times Moved in the Last Year: 0 Homeless in the Last Year: No Family History: Family History Problem Relation Name Age of Onset Melanoma Father Medications Prior to Admission: No current facility-administered medications on file prior to encounter. Current Outpatient Medications on File Prior to Encounter Medication Sig Dispense Refill albuterol 108 (90 Base) MCG/ACT inhaler inhale 1 puff by mouth and INTO THE LUNGS every 6 hours if needed for shortness of breath ascorbic acid (Vitamin C) 500 MG tablet Take 500 mg by mouth in the morning and 500 mg at noon and 500 mg in the evening. ergocalciferol (Vitamin D2) 1.25 MG (87299 UT) capsule Take 1.25 mg by mouth 1 (one) time per week. furosemide (Lasix) 40 MG tablet TAKE 1 TABLET BY MOUTH EVERY DAY NEEDED SWELLING lisinopril 5 MG tablet Take 5 mg by mouth in the morning. metoprolol tartrate (Lopressor) 25 MG tablet Take 25 mg by mouth in the morning and 25 mg in the evening. Take with meals. Take with food.. pantoprazole (ProtoNix) 40 MG EC tablet Trelegy Ellipta 100-62.5-25 MCG/ACT aerosol powder warfarin (Coumadin) 5 MG tablet Take as directed by [facility] (90 tablets = 90 day supply). Current dose: 5 mg daily. 90 tablet 0 Allergies: Allergies Allergen Reactions Advair Hfa [Fluticasone-Salmeterol] Arm numbness Amoxicillin Vomiting and diarrhea Percocet [Oxycodone-Acetaminophen] Itching REVIEW OF SYSTEMS: ROS negative except for what is mentioned in HPI Vitals: BP (!) 185/53 Pulse 68 Temp 36.4 C (97.6 F) (Axillary) Resp 18 Ht 5' 4" (1.626 m) Wt 160 lb (72.6 kg) SpO2 99% BMI 27.46 kg/m BMI Classification: Pulse Ox: SpO2 Av.8 % Min: 95 % Max: 100 % Supplemental O2: PHYSICAL EXAM: Physical Exam GENERAL: Pleasant, alert, oriented. No acute distress. HEENT: right eye swollen with conjunctival hemorrhage, EOMI however limited by pain. No scleral icterus. Oropharynx moist. CV: Regular rate and rhythm. No murmurs, rubs, or gallops appreciated. PULM: CTA bilaterally. No respiratory distress. No crackles, no wheezing, ronchi. GI: Soft. Non-distended. Nontender to palpation. EXT: No pedal edema. NEURO: Non-focal; CN 2-12 grossly intact, moving all extremities SKIN: Normal color. Warm and dry. PSYCH: Normal affect and thought. DATA: CBC: Recent Labs 07/05/24 0435 WBC 5.5 RBC 4.01 HGB 10.6* HCT 32.8* MCV 81.8 RDW 17.2* PLT 349 BMP: Recent Labs 07/05/24 0441 07/05/24 0833 NA 139 139 K 4.5 4.3 CL -- 107 CO2 -- 22* BUN -- 13 CREATININE 0.9 0.82 GLUCOSE -- 118* CALCIUM -- 9.2 ANIONGAP -- 10 LIVER PROFILE: Recent Labs 07/05/24 0833 AST 26 ALT 23 BILITOT 0.7 ALKPHOS 94 PROT 7.0 PT/INR: Recent Labs 07/05/24 0435 PROTIME 11.7 INR 1.0 CARDIAC ENZYMES: No results for input(s): "TROPONINI" in the last 72 hours. Procalcitonin: No results found for: "PROCAL" Urine Culture: No results found for this or any previous visit. COVID-19 PCR: No results for input(s): "COVID19" in the last 72 hours. I reviewed: [x] laboratory results [x] radiographic results At the time of today's encounter. Pt was advised of the results. Data: (LOW: 2x CAT1 or independent historian MOD: 3x CAT1 or 1x CAT3 EXTENSIVE: 3x CAT1 and 1x CAT3) ECG 12 lead if not already done by Squad Result Date: 07/05/2024 Atrial fibrillation Electronically Signed On 07-05-2024 12:39:21 EST by Jhonatan Hernandez MR brain wo contrast Result Date: 07/05/2024 Patient Name: MEL POP : 1940 Exam Date/Time: 07/05/2024 11:45 Procedure: MR BRAIN WO CONTRAST Ordering Provider: NUNES VISHNU Reason For Exam: Headache, new or worsening (Age >= 50y) MRI BRAIN: CLINICAL INDICATION: Headache and nausea with visual disturbance TECHNIQUE: Sagittal T1, coronal T2, transaxial T2, FLAIR, gradient echo and diffusion weighted sequences performed through the brain COMPARISON: CT from earlier today and from 04/03/2024 FINDINGS: Exam quality: Limited due to patient motion during the examination. Ventricular system and Extra-axial spaces: Normal in size and morphology for the patient's age. No extracerebral collection with mass effect. Cerebral and cerebellar parenchyma: Ill-defined T2 hyperintensity without restricted diffusion within the central right cerebellar hemisphere and inferior left cerebellar hemisphere, likely correspond old infarcts.. There is some similar region of signal abnormality within the right frontal and parietal lobe and subcortical regions, corresponding to old infarct as well. No restricted diffusion is noted to suggest an acute process Brainstem: Normal. Sella turcica and pituitary: Normal. Vascular system: Normal signal void is noted within the major intracranial vessels. Paranasal sinuses: Clear. Mastoid air cells: Normal. Orbits: A diminutive deformed left globe is noted. There is artifact within the right globe. 1. Regions of old infarct in the cerebellar hemispheres and right middle cerebral artery territory 2. No acute intracranial abnormality. Report Dictated on Electronically Signed By: Ming Fry MD Electronically Signed Date/Time: 07/05/2024 12:[address] head wo IV contrast Result Date: 07/05/2024 Patient Name: MEL POP : 1940 [facility]#: [id number] Exam Date/Time: 07/05/2024 04:36 Procedure: CT HEAD WO IV CONTRAST Ordering Provider: NUNES VISHNU Reason For Exam: Neuro deficit, acute, stroke suspected EXAM TYPE: CT HEAD WO IV CONTRAST, CT HEAD NECK ANGIO W AND WO IV CONTRAST, CT PERFUSION EXAM DATE AND TIME: 07/05/2024 4:36 AM EST INDICATION: Vision abnormality, headache COMPARISON: None available. TECHNIQUE: Noncontrast CT head was obtained. Thin section CT angiography from the aortic arch to the skull base was performed for CT angiography neck and from the skull base to vertex for CT angiography head, following the administration of intravenous contrast. MIP and volume rendered reformats were obtained using a separate workstation. Review of the axial source data and the reconstructed images was performed. A CT perfusion analysis of the intracranial vasculature was performed utilizing standard protocol. Perfusion data was analyzed at separate intracranial axial slice locations using submillimeter partitions during dynamic infusion of intravenous contrast. Perfusion parametric maps were generated from the dynamic data. Arterial and venous input functions were calculated from available arterial and venous reference points. A total of 75 mL Isovue 370 IV contrast was administered for intravenous contrast. FINDINGS: Noncontrast CT head: Ellipsoid mixed attenuation densities in the right ocular globe, new from 04/03/2024. Chronically small hyperdense left ocular globe with calcification and probable postsurgical changes. Chronic left cerebellar infarct. There is no CT evidence of an acute intracranial hemorrhage, territorial infarction, midline shift, mass effect, or extra-axial collection. The george-white differentiation remains preserved and the basal cisterns are patent. Ventricles are appropriate in size for the patient's age and level of parenchymal volume. The osseous structures are unremarkable without evidence of a fracture. The paranasal sinuses and mastoid air cells remain well aerated. ASPECTS SCORE: 10 CTA HEAD: ANTERIOR CIRCULATION Right Cavernous Carotid Artery: Patent. No focal stenosis, segmental occlusion or aneurysm. Right Middle Cerebral Artery: Patent. No focal stenosis, segmental occlusion or aneurysm. Right Anterior Cerebral Artery: Patent. No focal stenosis, segmental occlusion or aneurysm. Left Cavernous Carotid Artery: Patent. No focal stenosis, segmental occlusion or aneurysm. Left Middle Cerebral Artery: Patent. No focal stenosis, segmental occlusion or aneurysm. Left Anterior Cerebral Artery: Patent. No focal stenosis, segmental occlusion or aneurysm. Anterior Communicating Artery: Patent Posterior Communicating: Patent bilaterally POSTERIOR CIRCULATION Right Vertebral Artery: Patent. No focal stenosis, segmental occlusion, dissection, or aneurysm. Left Vertebral Artery: Patent. No focal stenosis, segmental occlusion, dissection, or aneurysm. Basilar Artery: Patent. No focal stenosis, segmental occlusion, or aneurysm. 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 No focal stenosis, segmental occlusion, dissection, or aneurysm. Left Posterior Cerebral Artery: Diminutive or absent P1 segment, likely congenital with predominant supply from posterior communicating artery. No focal stenosis, segmental occlusion, dissection, or aneurysm. Superior Cerebellar Arteries: Patent. AICAs: Patent. PICAs: Patent. CTA NECK: AORTIC ARCH: Three-vessel. BRACHIOCEPHALIC ORIGIN AND RIGHT COMMON CAROTID ORIGIN: Patent without significant stenosis. RIGHT COMMON CAROTID ARTERY: Patent with no hemodynamically significant stenosis. RIGHT CAROTID BIFURCATION/PROX INT CAROTID ARTERY: Mild amount of atherosclerotic plaque. Less than 10 percent stenosis by NASCET criteria. CERVICAL SEGMENT RIGHT CAROTID ARTERY: Patent with no hemodynamically significant stenosis. LEFT COMMON CAROTID: Patent with no hemodynamically significant stenosis. LEFT CAROTID BIFURCATION/PROX LEFT INT CAROTID: There is a mild amount of plaque within the carotid bulb. Less than 10 percent stenosis by NASCET criteria. CERVICAL SEGMENT LEFT INTERNAL CAROTID: Patent with no hemodynamically significant stenosis. RIGHT VERTEBRAL ARTERY:Patent with no hemodynamically significant stenosis or dissection. LEFT VERTEBRAL ARTERY: Moderate narrowing at the origin of the left vertebral artery. Otherwise patent with no hemodynamically significant stenosis or dissection. ACCESSORY STRUCTURES: To centimeter exophytic nodular extension of the right lobe of the thyroid into the upper mediastinum.. There is no cervical lymphadenopathy. Pulmonary emphysema with no acute consolidative process or suspicious nodules. Multilevel degenerative changes of the cervical spine. CT BRAIN PERFUSION: No regional areas of infarct or penumbra are seen. CT perfusion quantitative findings: Cerebral maps: CBF <30%= 0 ml. Tmax >6 sec= 0 ml. Mismatch volume: 0 ml. 1. No acute intracranial hemorrhage or territorial infarct. Chronic left cerebellar infarct. 2. 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 3. Moderate focal narrowing at the origin of left vertebral artery. 4. No regional areas of infarct or penumbra seen on CT perfusion imaging. 5. Ellipsoid mixed attenuation densities in the right ocular globe, new from 04/03/2024. These may be areas of intraocular hemorrhage among other possibilities. CRITICAL TEST RESULT COMMUNICATION: Critical findings discussed with Dr. Shabazz at 07/05/2024 4:46 AM EST. Report Dictated on Electronically Signed By: Cirilo Ray DR Electronically Signed Date/Time: 07/05/2024 5:03 AM EST CTA head neck angio w and wo IV contrast Result Date: 07/05/2024 [facility]: [facility] : 1940 [id number] Exam Date/Time: 07/05/2024 04:36 Procedure: CT HEAD NECK ANGIO W AND WO IV CONTRAST Ordering Provider: NUNES VISHNU Reason For Exam: Neuro deficit, acute, stroke suspected EXAM TYPE: CT HEAD WO IV CONTRAST, CT HEAD NECK ANGIO W AND WO IV CONTRAST, CT PERFUSION EXAM DATE AND TIME: 07/05/2024 4:36 AM EST INDICATION: Vision abnormality, headache COMPARISON: None available. TECHNIQUE: Noncontrast CT head was obtained. Thin section CT angiography from the aortic arch to the skull base was performed for CT angiography neck and from the skull base to vertex for CT angiography head, following the administration of intravenous contrast. MIP and volume rendered reformats were obtained using a separate workstation. Review of the axial source data and the reconstructed images was performed. A CT perfusion analysis of the intracranial vasculature was performed utilizing standard protocol. Perfusion data was analyzed at separate intracranial axial slice locations using submillimeter partitions during dynamic infusion of intravenous contrast. Perfusion parametric maps were generated from the dynamic data. Arterial and venous input functions were calculated from available arterial and venous reference points. A total of 75 mL Isovue 370 IV contrast was administered for intravenous contrast. FINDINGS: Noncontrast CT head: Ellipsoid mixed attenuation densities in the right ocular globe, new from 04/03/2024. Chronically small hyperdense left ocular globe with calcification and probable postsurgical changes. Chronic left cerebellar infarct. There is no CT evidence of an acute intracranial hemorrhage, territorial infarction, midline shift, mass effect, or extra-axial collection. The george-white differentiation remains preserved and the basal cisterns are patent. Ventricles are appropriate in size for the patient's age and level of parenchymal volume. The osseous structures are unremarkable without evidence of a fracture. The paranasal sinuses and mastoid air cells remain well aerated. ASPECTS SCORE: 10 CTA HEAD: ANTERIOR CIRCULATION Right Cavernous Carotid Artery: Patent. No focal stenosis, segmental occlusion or aneurysm. Right Middle Cerebral Artery: Patent. No focal stenosis, segmental occlusion or aneurysm. Right Anterior Cerebral Artery: Patent. No focal stenosis, segmental occlusion or aneurysm. Left Cavernous Carotid Artery: Patent. No focal stenosis, segmental occlusion or aneurysm. Left Middle Cerebral Artery: Patent. No focal stenosis, segmental occlusion or aneurysm. Left Anterior Cerebral Artery: Patent. No focal stenosis, segmental occlusion or aneurysm. Anterior Communicating Artery: Patent Posterior Communicating: Patent bilaterally POSTERIOR CIRCULATION Right Vertebral Artery: Patent. No focal stenosis, segmental occlusion, dissection, or aneurysm. Left Vertebral Artery: Patent. No focal stenosis, segmental occlusion, dissection, or aneurysm. Basilar Artery: Patent. No focal stenosis, segmental occlusion, or aneurysm. 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 No focal stenosis, segmental occlusion, dissection, or aneurysm. Left Posterior Cerebral Artery: Diminutive or absent P1 segment, likely congenital with predominant supply from posterior communicating artery. No focal stenosis, segmental occlusion, dissection, or aneurysm. Superior Cerebellar Arteries: Patent. AICAs: Patent. PICAs: Patent. CTA NECK: AORTIC ARCH: Three-vessel. BRACHIOCEPHALIC ORIGIN AND RIGHT COMMON CAROTID ORIGIN: Patent without significant stenosis. RIGHT COMMON CAROTID ARTERY: Patent with no hemodynamically significant stenosis. RIGHT CAROTID BIFURCATION/PROX INT CAROTID ARTERY: Mild amount of atherosclerotic plaque. Less than 10 percent stenosis by NASCET criteria. CERVICAL SEGMENT RIGHT CAROTID ARTERY: Patent with no hemodynamically significant stenosis. LEFT COMMON CAROTID: Patent with no hemodynamically significant stenosis. LEFT CAROTID BIFURCATION/PROX LEFT INT CAROTID: There is a mild amount of plaque within the carotid bulb. Less than 10 percent stenosis by NASCET criteria. CERVICAL SEGMENT LEFT INTERNAL CAROTID: Patent with no hemodynamically significant stenosis. RIGHT VERTEBRAL ARTERY:Patent with no hemodynamically significant stenosis or dissection. LEFT VERTEBRAL ARTERY: Moderate narrowing at the origin of the left vertebral artery. Otherwise patent with no hemodynamically significant stenosis or dissection. ACCESSORY STRUCTURES: To centimeter exophytic nodular extension of the right lobe of the thyroid into the upper mediastinum.. There is no cervical lymphadenopathy. Pulmonary emphysema with no acute consolidative process or suspicious nodules. Multilevel degenerative changes of the cervical spine. CT BRAIN PERFUSION: No regional areas of infarct or penumbra are seen. CT perfusion quantitative findings: Cerebral maps: CBF <30%= 0 ml. Tmax >6 sec= 0 ml. Mismatch volume: 0 ml. 1. No acute intracranial hemorrhage or territorial infarct. Chronic left cerebellar infarct. 2. 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 3. Moderate focal narrowing at the origin of left vertebral artery. 4. No regional areas of infarct or penumbra seen on CT perfusion imaging. 5. Ellipsoid mixed attenuation densities in the right ocular globe, new from 04/03/2024. These may be areas of intraocular hemorrhage among other possibilities. CRITICAL TEST RESULT COMMUNICATION: Critical findings discussed with Dr. Shabazz at 07/05/2024 4:46 AM EST. Report Dictated on Electronically Signed By: Cirilo Ray DR Electronically Signed Date/Time: 07/05/2024 5:[address] PERFUSION Result Date: 07/05/2024 Patient Name: MEL POP : 1940 [facility]ly [facility]#: [id number] Exam Date/Time: 07/05/2024 04:36 Procedure: CT PERFUSION Ordering Provider: NUNES VISHNU Reason For Exam: Neuro deficit, acute, stroke suspected EXAM TYPE: CT HEAD WO IV CONTRAST, CT HEAD NECK ANGIO W AND WO IV CONTRAST, CT PERFUSION EXAM DATE AND TIME: 07/05/2024 4:36 AM EST INDICATION: Vision abnormality, headache COMPARISON: None available. TECHNIQUE: Noncontrast CT head was obtained. Thin section CT angiography from the aortic arch to the skull base was performed for CT angiography neck and from the skull base to vertex for CT angiography head, following the administration of intravenous contrast. MIP and volume rendered reformats were obtained using a separate workstation. Review of the axial source data and the reconstructed images was performed. A CT perfusion analysis of the intracranial vasculature was performed utilizing standard protocol. Perfusion data was analyzed at separate intracranial axial slice locations using submillimeter partitions during dynamic infusion of intravenous contrast. Perfusion parametric maps were generated from the dynamic data. Arterial and venous input functions were calculated from available arterial and venous reference points. A total of 75 mL Isovue 370 IV contrast was administered for intravenous contrast. FINDINGS: Noncontrast CT head: Ellipsoid mixed attenuation densities in the right ocular globe, new from 04/03/2024. Chronically small hyperdense left ocular globe with calcification and probable postsurgical changes. Chronic left cerebellar infarct. There is no CT evidence of an acute intracranial hemorrhage, territorial infarction, midline shift, mass effect, or extra-axial collection. The george-white differentiation remains preserved and the basal cisterns are patent. Ventricles are appropriate in size for the patient's age and level of parenchymal volume. The osseous structures are unremarkable without evidence of a fracture. The paranasal sinuses and mastoid air cells remain well aerated. ASPECTS SCORE: 10 CTA HEAD: ANTERIOR CIRCULATION Right Cavernous Carotid Artery: Patent. No focal stenosis, segmental occlusion or aneurysm. Right Middle Cerebral Artery: Patent. No focal stenosis, segmental occlusion or aneurysm. Right Anterior Cerebral Artery: Patent. No focal stenosis, segmental occlusion or aneurysm. Left Cavernous Carotid Artery: Patent. No focal stenosis, segmental occlusion or aneurysm. Left Middle Cerebral Artery: Patent. No focal stenosis, segmental occlusion or aneurysm. Left Anterior Cerebral Artery: Patent. No focal stenosis, segmental occlusion or aneurysm. Anterior Communicating Artery: Patent Posterior Communicating: Patent bilaterally POSTERIOR CIRCULATION Right Vertebral Artery: Patent. No focal stenosis, segmental occlusion, dissection, or aneurysm. Left Vertebral Artery: Patent. No focal stenosis, segmental occlusion, dissection, or aneurysm. Basilar Artery: Patent. No focal stenosis, segmental occlusion, or aneurysm. 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 No focal stenosis, segmental occlusion, dissection, or aneurysm. Left Posterior Cerebral Artery: Diminutive or absent P1 segment, likely congenital with predominant supply from posterior communicating artery. No focal stenosis, segmental occlusion, dissection, or aneurysm. Superior Cerebellar Arteries: Patent. AICAs: Patent. PICAs: Patent. CTA NECK: AORTIC ARCH: Three-vessel. BRACHIOCEPHALIC ORIGIN AND RIGHT COMMON CAROTID ORIGIN: Patent without significant stenosis. RIGHT COMMON CAROTID ARTERY: Patent with no hemodynamically significant stenosis. RIGHT CAROTID BIFURCATION/PROX INT CAROTID ARTERY: Mild amount of atherosclerotic plaque. Less than 10 percent stenosis by NASCET criteria. CERVICAL SEGMENT RIGHT CAROTID ARTERY: Patent with no hemodynamically significant stenosis. LEFT COMMON CAROTID: Patent with no hemodynamically significant stenosis. LEFT CAROTID BIFURCATION/PROX LEFT INT CAROTID: There is a mild amount of plaque within the carotid bulb. Less than 10 percent stenosis by NASCET criteria. CERVICAL SEGMENT LEFT INTERNAL CAROTID: Patent with no hemodynamically significant stenosis. RIGHT VERTEBRAL ARTERY:Patent with no hemodynamically significant stenosis or dissection. LEFT VERTEBRAL ARTERY: Moderate narrowing at the origin of the left vertebral artery. Otherwise patent with no hemodynamically significant stenosis or dissection. ACCESSORY STRUCTURES: To centimeter exophytic nodular extension of the right lobe of the thyroid into the upper mediastinum.. There is no cervical lymphadenopathy. Pulmonary emphysema with no acute consolidative process or suspicious nodules. Multilevel degenerative changes of the cervical spine. CT BRAIN PERFUSION: No regional areas of infarct or penumbra are seen. CT perfusion quantitative findings: Cerebral maps: CBF <30%= 0 ml. Tmax >6 sec= 0 ml. Mismatch volume: 0 ml. 1. No acute intracranial hemorrhage or territorial infarct. Chronic left cerebellar infarct. 2. 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 3. Moderate focal narrowing at the origin of left vertebral artery. 4. No regional areas of infarct or penumbra seen on CT perfusion imaging. 5. Ellipsoid mixed attenuation densities in the right ocular globe, new from 04/03/2024. These may be areas of intraocular hemorrhage among other possibilities. CRITICAL TEST RESULT COMMUNICATION: Critical findings discussed with Dr. Shabazz at 07/05/2024 4:46 AM EST. Report Dictated on Electronically Signed By: Cirilo Ray DR Electronically Signed Date/Time: 07/05/2024 5:03 AM EST POCT glucose meter Result Date: 07/05/2024 Performed by: [facility], [address] [place] [address] CLIA ID: [id number] Assessment / Plan Discussed management with the ED provider and agree with hospitalization. 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 Risk: Admission to hospital-level care was considered or occurred (HIGH). Advance Directive: DNR-CCA Anticipated Discharge - Date -07/07/2024 - Location - Home with Home Health Care versus SNF - Pending the following -above evaluation Total time spent (which include face to face and non face to face encounters) : 65 minutes. Toxic drug monitoring/narrow therapeutic index drug monitoring : N/A Extended Emergency Contact Information Primary Emergency Contact: Damaris Villafana Mobile Relation: Friend Secondary Emergency Contact: SanchezJosé Miguel/ Fidel Mobile Relation: Child Silvio Peres MD Division of Hospitalist Medicine [employer] Dictated using [employer] Speaking Medical Version 2.4 Proof read however unrecognized voice recognition errors may have occurred [employer] Work Phone: 07-05-2024 Note [employer] [facility] 07-05-2024 History and physical note Attending History and Physical Admit Date: 07/05/2024 PCP: Jared Evans MD CHIEF COMPLAINT: Loss of vision right eye, headache/eye pain, nausea, eye swelling Reason for Admission: 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 History Obtained From: patient and patient's [id number]-av-ape HISTORY OF PRESENT ILLNESS: Mel is a 83 y.o. female with past medical history below who presents with chief complaint listed above. 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 Of note just discharged from rehab on 07/03/2024 after recently being hospitalized for CVA. She was doing okay at home until 07/04/2024 morning when she noted blurriness in her vision, that subsequently slightly improved over the course of the day. They initially attributed it to possible allergies or dust after returning home after prolonged absence. However this morning she woke up with severe pain behind her right eye into her head, as well as complete loss of vision, swelling of her right eye with significant redness. She was nauseous and vomiting. She presented to the ED immediately for further evaluation. ED Course: Vital signs notable for elevated blood pressure, otherwise stable, afebrile. Labs unremarkable. 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 CT perfusion showed no regional areas of infarct. MRI brain regions of old infarct in the cerebellar hemispheres and right middle cerebral artery territory. Ophthalmology, Dr. 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 Eyedrop recommendations made and ordered. She remains quite symptomatic in regards to nausea and eye pain, however very much improved as compared to previously Will admit for further evaluation and management. Patient was discussed with ED provider, Dr. Hernandez, who agrees with plan for admission. Past Medical History: Past Medical History: Diagnosis Date Arrhythmia PAF Asthma Chronic kidney disease COPD (chronic obstructive pulmonary disease) (HCC) DVT (deep venous thrombosis) (HCC) Essential hypertension 03/07/2020 GERD (gastroesophageal reflux disease) Hiatal hernia IBS (irritable bowel syndrome) Pure hypercholesterolemia 03/07/2020 PVD (peripheral vascular disease) (HCC) Stroke (HCC) Past Surgical History: Past Surgical History: Procedure Laterality Date ANKLE SURGERY ARM SURGERY (HISTORICAL) Right COLONOSCOPY ESOPHAGEAL DILATION EYE SURGERY 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 HYSTERECTOMY ORTHOPEDIC SURGERY THROMBECTOMY Right 04/06/2024 RLE mechanical thrombectomy (Krzysztof) Social History: Social History Socioeconomic History Marital status: Spouse name: Not on file Number of children: Not on file Years of education: Not on file Highest education level: Not on file Occupational History Not on file Tobacco Use Smoking status: Former Current packs/day: 0.50 Types: Cigarettes Smokeless tobacco: Never Substance and Sexual Activity Alcohol use: Not Currently Alcohol/week: 1.0 standard drink of alcohol Types: 1 Cans of beer per week Comment: occ Drug use: Never Sexual activity: Not on file Other Topics Concern Not on file Social History Narrative Not on file Social Drivers of Health Financial Resource Strain: Low Risk (06/20/2024) Received from [facility] Overall Financial Resource Strain (CARDIA) Difficulty of Paying Living Expenses: Not very hard Food Insecurity: No Food Insecurity (06/20/2024) Received from [facility] Medical Hunger Vital Sign Worried About Running Out of Food in the Last Year: Never true Ran Out of Food in the Last Year: Never true Transportation Needs: No Transportation Needs (07/02/2024) Received from [facility] Transportation Source Has lack of transportation kept you from medical appointments or from getting medications?: No Has lack of transportation kept you from meetings, work, or from getting things needed for daily living?: No Physical Activity: Inactive (04/04/2024) Exercise Vital Sign Days of Exercise per Week: 0 days Minutes of Exercise per Session: 0 min Stress: No Stress Concern Present (06/19/2024) Received from [facility] [place] [employer] - Occupational Stress Questionnaire Feeling of Stress : Not at all Social Connections: Moderately Isolated (06/20/2024) Received from [facility] Medical Social Connection and Isolation Panel [NHANES] Frequency of Communication with Friends and Family: More than three times a week Frequency of Social Gatherings with Friends and Family: Once a week Attends [employer] Services: More than 4 times per year Active Member of Clubs or Organizations: No Attends Club or Organization Meetings: Never Marital Status: Intimate Partner Violence: Not At Risk (06/19/2024) Received from [facility] Medical Domestic Abuse Assessment Do you feel safe in your relationships at home?: Yes Physical Abuse: Denies HRSN Domestic Abuse - Type of Abuse: Not on file [facility] Domestic Abuse - Time Frame: Not on file [facility] Domestic Abuse - Signs and Symptoms: Not on file Verbal Abuse: Denies [facility] Domestic Abuse - Reported To: Not on file Housing Stability: Low Risk (06/20/2024) Received from [facility] Housing Stability Vital Sign Unable to Pay for Housing in the Last Year: No Number of Times Moved in the Last Year: 0 Homeless in the Last Year: No Family History: Family History Problem Relation Name Age of Onset Melanoma Father Medications Prior to Admission: No current facility-administered medications on file prior to encounter. Current Outpatient Medications on File Prior to Encounter Medication Sig Dispense Refill albuterol 108 (90 Base) MCG/ACT inhaler inhale 1 puff by mouth and INTO THE LUNGS every 6 hours if needed for shortness of breath ascorbic acid (Vitamin C) 500 MG tablet Take 500 mg by mouth in the morning and 500 mg at noon and 500 mg in the evening. ergocalciferol (Vitamin D2) 1.25 MG (56354 UT) capsule Take 1.25 mg by mouth 1 (one) time per week. furosemide (Lasix) 40 MG tablet TAKE 1 TABLET BY MOUTH EVERY DAY NEEDED SWELLING lisinopril 5 MG tablet Take 5 mg by mouth in the morning. metoprolol tartrate (Lopressor) 25 MG tablet Take 25 mg by mouth in the morning and 25 mg in the evening. Take with meals. Take with food.. pantoprazole (ProtoNix) 40 MG EC tablet Trelegy Ellipta 100-62.5-25 MCG/ACT aerosol powder warfarin (Coumadin) 5 MG tablet Take as directed by [facility] Antico[facility] (90 tablets = 90 day supply). Current dose: 5 mg daily. 90 tablet 0 Allergies: Allergies Allergen Reactions Advair Hfa [Fluticasone-Salmeterol] Arm numbness Amoxicillin Vomiting and diarrhea Percocet [Oxycodone-Acetaminophen] Itching REVIEW OF SYSTEMS: ROS negative except for what is mentioned in HPI Vitals: BP (!) 185/53 Pulse 68 Temp 36.4 C (97.6 F) (Axillary) Resp 18 Ht 5' 4" (1.626 m) Wt 160 lb (72.6 kg) SpO2 99% BMI 27.46 kg/m BMI Classification: Pulse Ox: SpO2 Av.8 % Min: 95 % Max: 100 % Supplemental O2: PHYSICAL EXAM: Physical Exam GENERAL: Pleasant, alert, oriented. No acute distress. HEENT: right eye swollen with conjunctival hemorrhage, EOMI however limited by pain. No scleral icterus. Oropharynx moist. CV: Regular rate and rhythm. No murmurs, rubs, or gallops appreciated. PULM: CTA bilaterally. No respiratory distress. No crackles, no wheezing, ronchi. GI: Soft. Non-distended. Nontender to palpation. EXT: No pedal edema. NEURO: Non-focal; CN 2-12 grossly intact, moving all extremities SKIN: Normal color. Warm and dry. PSYCH: Normal affect and thought. DATA: CBC: Recent Labs 07/05/24 0435 WBC 5.5 RBC 4.01 HGB 10.6* HCT 32.8* MCV 81.8 RDW 17.2* PLT 349 BMP: Recent Labs 07/05/24 0441 07/05/24 0833 NA 139 139 K 4.5 4.3 CL -- 107 CO2 -- 22* BUN -- 13 CREATININE 0.9 0.82 GLUCOSE -- 118* CALCIUM -- 9.2 ANIONGAP -- 10 LIVER PROFILE: Recent Labs 07/05/24 0833 AST 26 ALT 23 BILITOT 0.7 ALKPHOS 94 PROT 7.0 PT/INR: Recent Labs 07/05/24 0435 PROTIME 11.7 INR 1.0 CARDIAC ENZYMES: No results for input(s): "TROPONINI" in the last 72 hours. Procalcitonin: No results found for: "PROCAL" Urine Culture: No results found for this or any previous visit. COVID-19 PCR: No results for input(s): "COVID19" in the last 72 hours. I reviewed: [x] laboratory results [x] radiographic results At the time of today's encounter. Pt was advised of the results. Data: (LOW: 2x CAT1 or independent historian MOD: 3x CAT1 or 1x CAT3 EXTENSIVE: 3x CAT1 and 1x CAT3) ECG 12 lead if not already done by Squad Result Date: 07/05/2024 Atrial fibrillation Electronically Signed On 07-05-2024 12:39:21 EST by Jhonatan Hernandez MR brain wo contrast Result Date: 07/05/2024 Patient Name: MEL POP : 1940 Exam Date/Time: 07/05/2024 11:45 Procedure: MR BRAIN WO CONTRAST Ordering Provider: NUNES VISHNU Reason For Exam: Headache, new or worsening (Age >= 50y) MRI BRAIN: CLINICAL INDICATION: Headache and nausea with visual disturbance TECHNIQUE: Sagittal T1, coronal T2, transaxial T2, FLAIR, gradient echo and diffusion weighted sequences performed through the brain COMPARISON: CT from earlier today and from 04/03/2024 FINDINGS: Exam quality: Limited due to patient motion during the examination. Ventricular system and Extra-axial spaces: Normal in size and morphology for the patient's age. No extracerebral collection with mass effect. Cerebral and cerebellar parenchyma: Ill-defined T2 hyperintensity without restricted diffusion within the central right cerebellar hemisphere and inferior left cerebellar hemisphere, likely correspond old infarcts.. There is some similar region of signal abnormality within the right frontal and parietal lobe and subcortical regions, corresponding to old infarct as well. No restricted diffusion is noted to suggest an acute process Brainstem: Normal. Sella turcica and pituitary: Normal. Vascular system: Normal signal void is noted within the major intracranial vessels. Paranasal sinuses: Clear. Mastoid air cells: Normal. Orbits: A diminutive deformed left globe is noted. There is artifact within the right globe. 1. Regions of old infarct in the cerebellar hemispheres and right middle cerebral artery territory 2. No acute intracranial abnormality. Report Dictated on Electronically Signed By: Ming Fry MD Electronically Signed Date/Time: 07/05/2024 12:[address] head wo IV contrast Result Date: 07/05/2024 Patient Name: MEL POP : 1940 Exam Date/Time: 07/05/2024 04:36 Procedure: CT HEAD WO IV CONTRAST Ordering Provider: NUNES VISHNU Reason For Exam: Neuro deficit, acute, stroke suspected EXAM TYPE: CT HEAD WO IV CONTRAST, CT HEAD NECK ANGIO W AND WO IV CONTRAST, CT PERFUSION EXAM DATE AND TIME: 07/05/2024 4:36 AM EST INDICATION: Vision abnormality, headache COMPARISON: None available. TECHNIQUE: Noncontrast CT head was obtained. Thin section CT angiography from the aortic arch to the skull base was performed for CT angiography neck and from the skull base to vertex for CT angiography head, following the administration of intravenous contrast. MIP and volume rendered reformats were obtained using a separate workstation. Review of the axial source data and the reconstructed images was performed. A CT perfusion analysis of the intracranial vasculature was performed utilizing standard protocol. Perfusion data was analyzed at separate intracranial axial slice locations using submillimeter partitions during dynamic infusion of intravenous contrast. Perfusion parametric maps were generated from the dynamic data. Arterial and venous input functions were calculated from available arterial and venous reference points. A total of 75 mL Isovue 370 IV contrast was administered for intravenous contrast. FINDINGS: Noncontrast CT head: Ellipsoid mixed attenuation densities in the right ocular globe, new from 04/03/2024. Chronically small hyperdense left ocular globe with calcification and probable postsurgical changes. Chronic left cerebellar infarct. There is no CT evidence of an acute intracranial hemorrhage, territorial infarction, midline shift, mass effect, or extra-axial collection. The george-white differentiation remains preserved and the basal cisterns are patent. Ventricles are appropriate in size for the patient's age and level of parenchymal volume. The osseous structures are unremarkable without evidence of a fracture. The paranasal sinuses and mastoid air cells remain well aerated. ASPECTS SCORE: 10 CTA HEAD: ANTERIOR CIRCULATION Right Cavernous Carotid Artery: Patent. No focal stenosis, segmental occlusion or aneurysm. Right Middle Cerebral Artery: Patent. No focal stenosis, segmental occlusion or aneurysm. Right Anterior Cerebral Artery: Patent. No focal stenosis, segmental occlusion or aneurysm. Left Cavernous Carotid Artery: Patent. No focal stenosis, segmental occlusion or aneurysm. Left Middle Cerebral Artery: Patent. No focal stenosis, segmental occlusion or aneurysm. Left Anterior Cerebral Artery: Patent. No focal stenosis, segmental occlusion or aneurysm. Anterior Communicating Artery: Patent Posterior Communicating: Patent bilaterally POSTERIOR CIRCULATION Right Vertebral Artery: Patent. No focal stenosis, segmental occlusion, dissection, or aneurysm. Left Vertebral Artery: Patent. No focal stenosis, segmental occlusion, dissection, or aneurysm. Basilar Artery: Patent. No focal stenosis, segmental occlusion, or aneurysm. 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 No focal stenosis, segmental occlusion, dissection, or aneurysm. Left Posterior Cerebral Artery: Diminutive or absent P1 segment, likely congenital with predominant supply from posterior communicating artery. No focal stenosis, segmental occlusion, dissection, or aneurysm. Superior Cerebellar Arteries: Patent. AICAs: Patent. PICAs: Patent. CTA NECK: AORTIC ARCH: Three-vessel. BRACHIOCEPHALIC ORIGIN AND RIGHT COMMON CAROTID ORIGIN: Patent without significant stenosis. RIGHT COMMON CAROTID ARTERY: Patent with no hemodynamically significant stenosis. RIGHT CAROTID BIFURCATION/PROX INT CAROTID ARTERY: Mild amount of atherosclerotic plaque. Less than 10 percent stenosis by NASCET criteria. CERVICAL SEGMENT RIGHT CAROTID ARTERY: Patent with no hemodynamically significant stenosis. LEFT COMMON CAROTID: Patent with no hemodynamically significant stenosis. LEFT CAROTID BIFURCATION/PROX LEFT INT CAROTID: There is a mild amount of plaque within the carotid bulb. Less than 10 percent stenosis by NASCET criteria. CERVICAL SEGMENT LEFT INTERNAL CAROTID: Patent with no hemodynamically significant stenosis. RIGHT VERTEBRAL ARTERY:Patent with no hemodynamically significant stenosis or dissection. LEFT VERTEBRAL ARTERY: Moderate narrowing at the origin of the left vertebral artery. Otherwise patent with no hemodynamically significant stenosis or dissection. ACCESSORY STRUCTURES: To centimeter exophytic nodular extension of the right lobe of the thyroid into the upper mediastinum.. There is no cervical lymphadenopathy. Pulmonary emphysema with no acute consolidative process or suspicious nodules. Multilevel degenerative changes of the cervical spine. CT BRAIN PERFUSION: No regional areas of infarct or penumbra are seen. CT perfusion quantitative findings: Cerebral maps: CBF <30%= 0 ml. Tmax >6 sec= 0 ml. Mismatch volume: 0 ml. 1. No acute intracranial hemorrhage or territorial infarct. Chronic left cerebellar infarct. 2. 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 3. Moderate focal narrowing at the origin of left vertebral artery. 4. No regional areas of infarct or penumbra seen on CT perfusion imaging. 5. Ellipsoid mixed attenuation densities in the right ocular globe, new from 04/03/2024. These may be areas of intraocular hemorrhage among other possibilities. CRITICAL TEST RESULT COMMUNICATION: Critical findings discussed with Dr. Shabazz at 07/05/2024 4:46 AM EST. Report Dictated on Electronically Signed By: Cirilo Ray DR Electronically Signed Date/Time: 07/05/2024 5:03 AM EST CTA head neck angio w and wo IV contrast Result Date: 07/05/2024 Patient Name: MEL POP : 1940 [facility]#: [id number] Exam Date/Time: 07/05/2024 04:36 Procedure: CT HEAD NECK ANGIO W AND WO IV CONTRAST Ordering Provider: NUNES VISHNU Reason For Exam: Neuro deficit, acute, stroke suspected EXAM TYPE: CT HEAD WO IV CONTRAST, CT HEAD NECK ANGIO W AND WO IV CONTRAST, CT PERFUSION EXAM DATE AND TIME: 07/05/2024 4:36 AM EST INDICATION: Vision abnormality, headache COMPARISON: None available. TECHNIQUE: Noncontrast CT head was obtained. Thin section CT angiography from the aortic arch to the skull base was performed for CT angiography neck and from the skull base to vertex for CT angiography head, following the administration of intravenous contrast. MIP and volume rendered reformats were obtained using a separate workstation. Review of the axial source data and the reconstructed images was performed. A CT perfusion analysis of the intracranial vasculature was performed utilizing standard protocol. Perfusion data was analyzed at separate intracranial axial slice locations using submillimeter partitions during dynamic infusion of intravenous contrast. Perfusion parametric maps were generated from the dynamic data. Arterial and venous input functions were calculated from available arterial and venous reference points. A total of 75 mL Isovue 370 IV contrast was administered for intravenous contrast. FINDINGS: Noncontrast CT head: Ellipsoid mixed attenuation densities in the right ocular globe, new from 04/03/2024. Chronically small hyperdense left ocular globe with calcification and probable postsurgical changes. Chronic left cerebellar infarct. There is no CT evidence of an acute intracranial hemorrhage, territorial infarction, midline shift, mass effect, or extra-axial collection. The george-white differentiation remains preserved and the basal cisterns are patent. Ventricles are appropriate in size for the patient's age and level of parenchymal volume. The osseous structures are unremarkable without evidence of a fracture. The paranasal sinuses and mastoid air cells remain well aerated. ASPECTS SCORE: 10 CTA HEAD: ANTERIOR CIRCULATION Right Cavernous Carotid Artery: Patent. No focal stenosis, segmental occlusion or aneurysm. Right Middle Cerebral Artery: Patent. No focal stenosis, segmental occlusion or aneurysm. Right Anterior Cerebral Artery: Patent. No focal stenosis, segmental occlusion or aneurysm. Left Cavernous Carotid Artery: Patent. No focal stenosis, segmental occlusion or aneurysm. Left Middle Cerebral Artery: Patent. No focal stenosis, segmental occlusion or aneurysm. Left Anterior Cerebral Artery: Patent. No focal stenosis, segmental occlusion or aneurysm. Anterior Communicating Artery: Patent Posterior Communicating: Patent bilaterally POSTERIOR CIRCULATION Right Vertebral Artery: Patent. No focal stenosis, segmental occlusion, dissection, or aneurysm. Left Vertebral Artery: Patent. No focal stenosis, segmental occlusion, dissection, or aneurysm. Basilar Artery: Patent. No focal stenosis, segmental occlusion, or aneurysm. 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 No focal stenosis, segmental occlusion, dissection, or aneurysm. Left Posterior Cerebral Artery: Diminutive or absent P1 segment, likely congenital with predominant supply from posterior communicating artery. No focal stenosis, segmental occlusion, dissection, or aneurysm. Superior Cerebellar Arteries: Patent. AICAs: Patent. PICAs: Patent. CTA NECK: AORTIC ARCH: Three-vessel. BRACHIOCEPHALIC ORIGIN AND RIGHT COMMON CAROTID ORIGIN: Patent without significant stenosis. RIGHT COMMON CAROTID ARTERY: Patent with no hemodynamically significant stenosis. RIGHT CAROTID BIFURCATION/PROX INT CAROTID ARTERY: Mild amount of atherosclerotic plaque. Less than 10 percent stenosis by NASCET criteria. CERVICAL SEGMENT RIGHT CAROTID ARTERY: Patent with no hemodynamically significant stenosis. LEFT COMMON CAROTID: Patent with no hemodynamically significant stenosis. LEFT CAROTID BIFURCATION/PROX LEFT INT CAROTID: There is a mild amount of plaque within the carotid bulb. Less than 10 percent stenosis by NASCET criteria. CERVICAL SEGMENT LEFT INTERNAL CAROTID: Patent with no hemodynamically significant stenosis. RIGHT VERTEBRAL ARTERY:Patent with no hemodynamically significant stenosis or dissection. LEFT VERTEBRAL ARTERY: Moderate narrowing at the origin of the left vertebral artery. Otherwise patent with no hemodynamically significant stenosis or dissection. ACCESSORY STRUCTURES: To centimeter exophytic nodular extension of the right lobe of the thyroid into the upper mediastinum.. There is no cervical lymphadenopathy. Pulmonary emphysema with no acute consolidative process or suspicious nodules. Multilevel degenerative changes of the cervical spine. CT BRAIN PERFUSION: No regional areas of infarct or penumbra are seen. CT perfusion quantitative findings: Cerebral maps: CBF <30%= 0 ml. Tmax >6 sec= 0 ml. Mismatch volume: 0 ml. 1. No acute intracranial hemorrhage or territorial infarct. Chronic left cerebellar infarct. 2. 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 3. Moderate focal narrowing at the origin of left vertebral artery. 4. No regional areas of infarct or penumbra seen on CT perfusion imaging. 5. Ellipsoid mixed attenuation densities in the right ocular globe, new from 04/03/2024. These may be areas of intraocular hemorrhage among other possibilities. CRITICAL TEST RESULT COMMUNICATION: Critical findings discussed with Dr. Shabazz at 07/05/2024 4:46 AM EST. Report Dictated on Electronically Signed By: Cirilo Ray DR Electronically Signed Date/Time: 07/05/2024 5:[address] PERFUSION Result Date: 07/05/2024 Patient Name: [facility]EL POP : 1940 [id number] Exam Date/Time: 07/05/2024 04:36 Procedure: CT PERFUSION Ordering Provider: NUNES VISHNU Reason For Exam: Neuro deficit, acute, stroke suspected EXAM TYPE: CT HEAD WO IV CONTRAST, CT HEAD NECK ANGIO W AND WO IV CONTRAST, CT PERFUSION EXAM DATE AND TIME: 07/05/2024 4:36 AM EST INDICATION: Vision abnormality, headache COMPARISON: None available. TECHNIQUE: Noncontrast CT head was obtained. Thin section CT angiography from the aortic arch to the skull base was performed for CT angiography neck and from the skull base to vertex for CT angiography head, following the administration of intravenous contrast. MIP and volume rendered reformats were obtained using a separate workstation. Review of the axial source data and the reconstructed images was performed. A CT perfusion analysis of the intracranial vasculature was performed utilizing standard protocol. Perfusion data was analyzed at separate intracranial axial slice locations using submillimeter partitions during dynamic infusion of intravenous contrast. Perfusion parametric maps were generated from the dynamic data. Arterial and venous input functions were calculated from available arterial and venous reference points. A total of 75 mL Isovue 370 IV contrast was administered for intravenous contrast. FINDINGS: Noncontrast CT head: Ellipsoid mixed attenuation densities in the right ocular globe, new from 04/03/2024. Chronically small hyperdense left ocular globe with calcification and probable postsurgical changes. Chronic left cerebellar infarct. There is no CT evidence of an acute intracranial hemorrhage, territorial infarction, midline shift, mass effect, or extra-axial collection. The george-white differentiation remains preserved and the basal cisterns are patent. Ventricles are appropriate in size for the patient's age and level of parenchymal volume. The osseous structures are unremarkable without evidence of a fracture. The paranasal sinuses and mastoid air cells remain well aerated. ASPECTS SCORE: 10 CTA HEAD: ANTERIOR CIRCULATION Right Cavernous Carotid Artery: Patent. No focal stenosis, segmental occlusion or aneurysm. Right Middle Cerebral Artery: Patent. No focal stenosis, segmental occlusion or aneurysm. Right Anterior Cerebral Artery: Patent. No focal stenosis, segmental occlusion or aneurysm. Left Cavernous Carotid Artery: Patent. No focal stenosis, segmental occlusion or aneurysm. Left Middle Cerebral Artery: Patent. No focal stenosis, segmental occlusion or aneurysm. Left Anterior Cerebral Artery: Patent. No focal stenosis, segmental occlusion or aneurysm. Anterior Communicating Artery: Patent Posterior Communicating: Patent bilaterally POSTERIOR CIRCULATION Right Vertebral Artery: Patent. No focal stenosis, segmental occlusion, dissection, or aneurysm. Left Vertebral Artery: Patent. No focal stenosis, segmental occlusion, dissection, or aneurysm. Basilar Artery: Patent. No focal stenosis, segmental occlusion, or aneurysm. 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 No focal stenosis, segmental occlusion, dissection, or aneurysm. Left Posterior Cerebral Artery: Diminutive or absent P1 segment, likely congenital with predominant supply from posterior communicating artery. No focal stenosis, segmental occlusion, dissection, or aneurysm. Superior Cerebellar Arteries: Patent. AICAs: Patent. PICAs: Patent. CTA NECK: AORTIC ARCH: Three-vessel. BRACHIOCEPHALIC ORIGIN AND RIGHT COMMON CAROTID ORIGIN: Patent without significant stenosis. RIGHT COMMON CAROTID ARTERY: Patent with no hemodynamically significant stenosis. RIGHT CAROTID BIFURCATION/PROX INT CAROTID ARTERY: Mild amount of atherosclerotic plaque. Less than 10 percent stenosis by NASCET criteria. CERVICAL SEGMENT RIGHT CAROTID ARTERY: Patent with no hemodynamically significant stenosis. LEFT COMMON CAROTID: Patent with no hemodynamically significant stenosis. LEFT CAROTID BIFURCATION/PROX LEFT INT CAROTID: There is a mild amount of plaque within the carotid bulb. Less than 10 percent stenosis by NASCET criteria. CERVICAL SEGMENT LEFT INTERNAL CAROTID: Patent with no hemodynamically significant stenosis. RIGHT VERTEBRAL ARTERY:Patent with no hemodynamically significant stenosis or dissection. LEFT VERTEBRAL ARTERY: Moderate narrowing at the origin of the left vertebral artery. Otherwise patent with no hemodynamically significant stenosis or dissection. ACCESSORY STRUCTURES: To centimeter exophytic nodular extension of the right lobe of the thyroid into the upper mediastinum.. There is no cervical lymphadenopathy. Pulmonary emphysema with no acute consolidative process or suspicious nodules. Multilevel degenerative changes of the cervical spine. CT BRAIN PERFUSION: No regional areas of infarct or penumbra are seen. CT perfusion quantitative findings: Cerebral maps: CBF <30%= 0 ml. Tmax >6 sec= 0 ml. Mismatch volume: 0 ml. 1. No acute intracranial hemorrhage or territorial infarct. Chronic left cerebellar infarct. 2. 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 3. Moderate focal narrowing at the origin of left vertebral artery. 4. No regional areas of infarct or penumbra seen on CT perfusion imaging. 5. Ellipsoid mixed attenuation densities in the right ocular globe, new from 04/03/2024. These may be areas of intraocular hemorrhage among other possibilities. CRITICAL TEST RESULT COMMUNICATION: Critical findings discussed with Dr. Shabazz at 07/05/2024 4:46 AM EST. Report Dictated on Electronically Signed By: Cirilo Ray DR Electronically Signed Date/Time: 07/05/2024 5:03 AM EST POCT glucose meter Result Date: 07/05/2024 Performed by: [facility], [address] [place] [address] CLIA ID: [id number] Assessment / Plan Discussed management with the ED provider and agree with hospitalization. 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 Risk: Admission to hospital-level care was considered or occurred (HIGH). Advance Directive: DNR-CCA Anticipated Discharge - Date -07/07/2024 - Location - Home with Home Health Care versus SNF - Pending the following -above evaluation Total time spent (which include face to face and non face to face encounters) : 65 minutes. Toxic drug monitoring/narrow therapeutic index drug monitoring : N/A Extended Emergency Contact Information Primary Emergency Contact: Damaris Villafana Mobile Relation: Friend Secondary Emergency Contact: SanchezJosé Miguel/ Fidel Mobile Relation: Child Silvio Peres MD Division of Hospitalist Medicine tab ticketbroker [facility] Dictated using aka-[employer] Version 2.4 Proof read however unrecognized voice recognition errors may have occurred documented in this encounter [facility] 07-05-2024 Emergency department Note Provider notified of patient request for pain meds. [facility] 07-05-2024 Consult note Associated Order (s): IP CONSULT TO OPHTHALMOLOGY Ophthalmology ED consult note Present illness: 83 yo female presented to ED early this AM complaining of severe headache and nausea. History of previous retinal detachment left eye (OS) with resulting blindness. Eye examination: Vision finger counting right eye (OD) at 3 inches. Left eye (OS) no light perception (NLP) with opaque cornea and exotropic eye. Exam right eye (OD) revealed injected edematous conjunctiva. Pupil right eye (OD) nonreactive and mid-dilated. Cornea, anterior chamber and iris clear. Anterior chamber shallow. Intraocular pressure (IOP) right eye (OD) measured 81.7 mmHg. Impression: #1 Acute angle closure glaucoma right eye (OD). #2 Status post retinal detachment left eye (OS) by history with eventual resulting blindness. Disposition: Patient taken to Eye clinic and multiple peripheral peripheral iridotomies performed with YAG laser (3) due to thick edematous iris. Intraocular pressure (IOP) following iridotomies 43.4 mmHg right eye (OD), eye much more comfortable and nausea and vomiting terminated. Patient admitted to hospital. Patient is to receive eye drops: Timolol 1% ophthalmic drops-1 drop right eye (OD) bid; Bromonidine ophthalmic drops-1 drop right eye (OD) tid; Dorzolamide Ophthalmic drops-1 drop right eye (OD) tid and Pred forte ophthalmic drops-1 drop right eye (OD) tid. Pred forte drops to be discontinued after 4 days. [facility] 07-05-2024 Consult note Associated Order (s): Inpatient consult to Endovascular Neurology--[facility] Inpatient consult to Endovascular Neurology--[facility] Consult performed by: Helga Naik APRN - [facility] Consult ordered by: Wm Nunes DO Reason for consult: R ICA aneurysm History Of Present Illness Mel oPp is a 83 y.o. female presenting with woke from sleep with sudden severe headache and alteration in vision in right eye. Pt has history of PAD, stroke (06/10), afib on lovenox, CKD, and chronic left eye vision loss. 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 Pt was taken to ophthalmology clinic for emergent treatment of increased ocular pressure. MRI brain is pending at this time. Past Medical History She has a past medical history of Arrhythmia, Asthma, Chronic kidney disease, COPD (chronic obstructive pulmonary disease) ([facility]), DVT (deep venous thrombosis) ([facility]), Essential hypertension (03/07/2020), GERD (gastroesophageal reflux disease), Hiatal hernia, IBS (irritable bowel syndrome), Pure hypercholesterolemia (03/07/2020), PVD (peripheral vascular disease) ([facility]), and Stroke ([facility]). She has no past medical history of Cancer (CMS/HCC) ([facility]), Cerebral artery occlusion with cerebral infarction ([facility]), CHF (congestive heart failure) ([facility]), Diabetes mellitus ([facility]), Hemodialysis patient ([facility]) ([facility]), blood clots, or MDRO (multiple drug resistant organisms) resistance. Surgical History She has a past surgical history that includes Finger amputation (Right, 03/07/2020); orthopedic surgery; Hysterectomy; Thrombectomy (Right, 04/06/2024); Eye surgery; Colonoscopy; Esophageal dilation; Ankle surgery; and Arm Surgery (Right). Social History She reports that she has quit smoking. Her smoking use included cigarettes. She has never used smokeless tobacco. She reports that she does not currently use alcohol after a past usage of about 1.0 standard drink of alcohol per week. She reports that she does not use drugs. Allergies Advair hfa [fluticasone-salmeterol], Amoxicillin, and Percocet [oxycodone-acetaminophen] Medications (Not in a hospital admission) Review of Systems Constitutional: Positive for activity change. HENT: Negative. Eyes: Positive for pain and visual disturbance. Respiratory: Negative. Cardiovascular: Negative. Gastrointestinal: Negative. Endocrine: Negative. Genitourinary: Negative. Musculoskeletal: Positive for neck pain. Skin: Negative. Allergic/Immunologic: Negative. Neurological: Positive for headaches. Hematological: Negative. Psychiatric/Behavioral: The patient is nervous/anxious. Neurological Exam Mental Status Alert. Oriented to person, place, time and situation. Recent and remote memory are intact. Speech is normal. Language is fluent with no aphasia. Attention and concentration are normal. R pupil dilated 2/2 procedure/ medications Left eye opaque, no reactive TRUJILLO x 4 Severe headache Sensation intact Physical Exam Cardiovascular: Rate and Rhythm: Normal rate and regular rhythm. Pulmonary: Effort: Pulmonary effort is normal. Breath sounds: Normal breath sounds. Skin: General: Skin is warm and dry. Capillary Refill: Capillary refill takes less than 2 seconds. Neurological: Mental Status: She is alert. Psychiatric: Speech: Speech normal. Last Recorded Vitals Blood pressure (!) 156/58, pulse 61, temperature 36.4 C (97.6 F), temperature source Axillary, resp. rate 14, height 1.626 m (5' 4"), weight 72.6 kg (160 lb), SpO2 97%. Relevant Results mpression 1. No acute intracranial hemorrhage or territorial infarct. Chronic left cerebellar infarct. 2. 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 3. Moderate focal narrowing at the origin of left vertebral artery. 4. No regional areas of infarct or penumbra seen on CT perfusion imaging. 5. Ellipsoid mixed attenuation densities in the right ocular globe, new from 04/03/2024. These may be areas of intraocular hemorrhage among other possibilities. 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 Recommend close monitoring of blood pressure and continued smoking cessation 30 minute MERLIN time spent reviewing chart and images as well as completing assessment and plan. Pt seen and discussed with Dr. Lombardi Attending Note: Patient seen independently and examined at bedside with my MERLIN. I performed a history and physical examination of the patient as well as have personally reviewed imaging documented in the note. Management dicussed with my MERLIN during rounds. I reviewed the note and agree with the History, physical examination, documented findings and plan of care with the following addendum: 83 yo woman sudden severe headache and vomiting, likely attributed to acute glaucoma. No evidence of hemorrhage on CT (done 2 hours after symptom onset) or MRI (approx 10 hours). Incidental finding of 3mm cavernous carotid artery noted and images reviewed with patient and daughter. We discussed aneurysm rupture risk, stroke risk factors, and warning signs. Discussed imaging and treatment options, benefits, risks, and alternatives. At this time recommend continued smoking cessation and BP control. Can fu in outpatient endovascular clinic in 6 months for vascular surveillance. Please call with questions. MD Maria C Personal discussion of test results and plan of care with: Family, ., ., ., . Personal review of: Imaging,Labs,Old Records},.},. [facility] Work Phone: 07-05-[address] Carlson at bedside [facility] 07-05-2024 Emergency department Note Patient is returning back to room 32 at this time with Jose, Medic. [facility] 07-05-2024 Emergency department Note Pt currently at eye clinic with RADHA Hinkle for emergent eye laser procedure. [facility] 07-05-2024 Note Pt currently at eye clinic with RADHA Hinkle for emergent eye laser procedure. [facility] 07-05-2024 Emergency department Note Pt emergently going to eye clinic. Pt being transported in wheelchair with trauma float RADHA Hinkle and Maritza FRAGA Pt being transported on zoll monitor and acls kit. [facility] 07-05-2024 Emergency department Note Ophthalmology at bedside [facility] 07-05-2024 Emergency department Note Report to Maritza FRAGA [facility] 07-05-2024 Consult note Associated Order (s): IP CONSULT TO STROKE TEAM STROKE TEAM NOTE Patient Name: Mel Pop Patient : 1940 Acct: [id number] Date of Admission: 07/05/2024 Room/Bed: 60/60 PCP: Jared Evans MD Stroke team; ED History of Present Ilness: 83 y.o. female with past medical history of Afib on Lovenox (previously had clot while on Eliquis), left atrial myxoma, L retinal detachment, severe LE PAD, hypertension, hyperlipidemia, asthma, GERD, and Left cerebellar infarct in May 2024 with chief Complaint of:worst headache of her life and decreased vision. Patient notes that at about 2:30am this morning she woke up with a severe headache with radiation down her neck. She notes decreased vision at baseline but reports she started seeing colored purple and white spots in her vision. Pain is described as pressure and throbbing mostly around bilateral eyes. Endorses nausea and vomiting. States she went to bed at around 9:30pm last night and is currently on Lovenox for her Afib. In ED, patient was hypertensive at 197/99 with HR of 63. Labs were remarkable for hemoglobin 10.6. INR was at 1.0 and aPTT at 30.4. 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 CT perfusion showed no regional areas of infarct. Additionally, imaging showed areas of intraocular hemorrhage of right eye. She was given 10mg of hydralazine for blood pressure control and ophthalmology was consulted. Onset time: last seen well;9:30PM 07/04/24 ED arrival: 4:22AM Stroke teamactivation 04:23 AM NIHSS upon arrival:3 Associated symptoms: headache, nausea, visual changes This occurred in the setting of:waking up from sleep Current use of anticoagulants: Lovenox 70mg BID If on anticoagulants when was last dose:07/04/24 unsure of time Preadmission secondary prevention antiplatelets and statins:None History of AF:yes Contraindications for thrombolytic treatment: Yes Past Medical History: Past Medical History: Diagnosis Date Arrhythmia PAF Asthma Chronic kidney disease COPD (chronic obstructive pulmonary disease) (HCC) DVT (deep venous thrombosis) (HCC) Essential hypertension 03/07/2020 GERD (gastroesophageal reflux disease) Hiatal hernia IBS (irritable bowel syndrome) Pure hypercholesterolemia 03/07/2020 PVD (peripheral vascular disease) (HCC) Stroke (HCC) Past Surgical History: Past Surgical History: Procedure Laterality Date ANKLE SURGERY ARM SURGERY (HISTORICAL) Right COLONOSCOPY ESOPHAGEAL DILATION EYE SURGERY 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 HYSTERECTOMY ORTHOPEDIC SURGERY THROMBECTOMY Right 04/06/2024 RLE mechanical thrombectomy (Krzysztof) Home Medications: Prior to Admission medications Medication Sig Start Date End Date Taking? Authorizing Provider albuterol 108 (90 Base) MCG/ACT inhaler inhale 1 puff by mouth and INTO THE LUNGS every 6 hours if needed for shortness of breath 02/17/23 Historical Provider, ascorbic acid (Vitamin C) 500 MG tablet Take 500 mg by mouth in the morning and 500 mg at noon and 500 mg in the evening. 06/28/22 Historical Provider, ergocalciferol (Vitamin D2) 1.25 MG (25807 UT) capsule Take 1.25 mg by mouth 1 (one) time per week. Historical Provider, furosemide (Lasix) 40 MG tablet TAKE 1 TABLET BY MOUTH EVERY DAY NEEDED SWELLING 04/20/24 Historical Provider, lisinopril 5 MG tablet Take 5 mg by mouth in the morning. 05/26/22 Historical Provider, metoprolol tartrate (Lopressor) 25 MG tablet Take 25 mg by mouth in the morning and 25 mg in the evening. Take with meals. Take with food.. 03/12/24 Historical Provider, pantoprazole (ProtoNix) 40 MG EC tablet 07/18/23 Historical Provider, MD Mark Maazriegosta 100-62.5-25 MCG/ACT aerosol powder 05/19/23 Historical Provider, warfarin (Coumadin) 5 MG tablet Take as directed by [facility] (90 tablets = 90 day supply). Current dose: 5 mg daily. 06/01/24 Ryan Valdez MD Current Hospital Medications: Current Facility-Administered Medications: fentaNYL (Sublimaze) injection 25 mcg, 25 mcg, IntraVENous, Once, Wm Mudrakola, DO labetalol (Normodyne,Trandate) injection 10 mg, 10 mg, IntraVENous, q10 min PRN, Wm Mudrakola, DO sodium chloride 0.9 % bolus 250 mL, 250 mL, IntraVENous, Once, Wm Mudrakola, DO sodium chloride 0.9 % infusion, 5-250 mL/hr, IntraVENous, PRN, Wm Mudrakola, DO sodium chloride 0.9 % infusion, 50 mL/hr, IntraVENous, Continuous, Wm Mudrakola, DO sodium chloride 0.9% (NS) flush 5-40 mL, 5-40 mL, IntraVENous, q12h, Wm Mudrakola, DO sodium chloride 0.9% (NS) flush 5-40 mL, 5-40 mL, IntraVENous, PRN, Wm Mudrakola, DO Current Outpatient Medications: albuterol 108 (90 Base) MCG/ACT inhaler, inhale 1 puff by mouth and INTO THE LUNGS every 6 hours if needed for shortness of breath, Disp: , Rfl: ascorbic acid (Vitamin C) 500 MG tablet, Take 500 mg by mouth in the morning and 500 mg at noon and 500 mg in the evening., Disp: , Rfl: ergocalciferol (Vitamin D2) 1.25 MG (15649 UT) capsule, Take 1.25 mg by mouth 1 (one) time per week., Disp: , Rfl: furosemide (Lasix) 40 MG tablet, TAKE 1 TABLET BY MOUTH EVERY DAY NEEDED SWELLING, Disp: , Rfl: lisinopril 5 MG tablet, Take 5 mg by mouth in the morning., Disp: , Rfl: metoprolol tartrate (Lopressor) 25 MG tablet, Take 25 mg by mouth in the morning and 25 mg in the evening. Take with meals. Take with food.., Disp: , Rfl: pantoprazole (ProtoNix) 40 MG EC tablet, , Disp: , Rfl: Trelegy Ellipta 100-62.5-25 MCG/ACT aerosol powder , , Disp: , Rfl: warfarin (Coumadin) 5 MG tablet, Take as directed by [facility]tico[facility] (90 tablets = 90 day supply). Current dose: 5 mg daily., Disp: 90 tablet, Rfl: 0 Continuous Infusions: sodium chloride, 50 mL/hr Allergies: Advair hfa [fluticasone-salmeterol], Amoxicillin, and Percocet [oxycodone-acetaminophen] Social History: TOBACCO: reports that she has quit smoking. Her smoking use included cigarettes. She has never used smokeless tobacco. ETOH: reports that she does not currently use alcohol after a past usage of about 1.0 standard drink of alcohol per week. RECREATIONAL DRUG USE: Social History Substance and Sexual Activity Drug Use Never FamilyHistory: :. Family History Problem Relation Name Age of Onset Melanoma Father ROS; :A complete review of system was performed , pertinent positives noted and remainderare negative Review of Systems Eyes: Left eye with presence of blood pooling on conjuctiva. No evidence of foreign body or opacity. Painful to light and extraocular movement. Cardiovascular: Negative. Physical Examination: Patient Vitals for the past 8 hrs: BP Pulse SpO2 Weight 07/05/24 0434 (!) 197/99 65 99 % -- 07/05/24 0429 -- -- -- 160 lb (72.6 kg) 07/05/24 0428 (!) 160/105 63 -- -- No intake/output data recorded. VITAL SIGNS : HR 63 , BP 197/99 , RR 20. Pulse Ox 99 Neurological Examination: Higher Functions: Mental Status Exam: Level of Alertness:Awake Orientation: Normal to self, time, place Memory: Normal Fund of Knowledge: Normal Language: Normal Dysarthria not present Cranial Nerves: -II Visual acuity: abnormal, limited due to patient unable to perform exam -II Visual martell: poor reliability due to patient level ofconsciousness or structural limitation -III Pupils ) equal, round, reactive to light -III-IV- Extraocular Movements: abnormal limited due to pain -Nystagmus not present -Saccades and pursuits normal -V Facial sensation: intact Corneal's Limited due to pain -VII Facial strength: intact -VIII Hearing: intact -IX-X- Gag reflex present -X Palate:intact -XI Shoulder shrug: "intact"normal -XII Tongue movement: normal Funduscopic Exam: normal, no edema or exudates both eyes Sensory Intact to light touch, pain / temperature, proprioception, Coordination: Arms Normal finger to nose Legs Intact heel knee taveras testing Tremors not present Gait abnormal, patient unable to walk due to acute circumstances / bedrest / safety concerns NIHSS 1a Level of consciousness: 0=alert; keenly responsive 1b. LOC questions: 0=Performs both tasks correctly 1c. LOC commands: 0=Performs both tasks correctly 2. Best Gaze: 0=normal 3. Visual: 2=Complete hemianopia 4. Facial Palsy: 0=Normal symmetric movement 5a. Motor left arm: 0=No drift, limb holds 90 (or 45) degrees for full 10 seconds 5b. Motor right arm: 0=No drift, limb holds 90 (or 45) degrees for full 10 seconds 6a. motor left le=No drift, limb holds 90 (or 45) degrees for full 10 seconds 6b Motor right le=No drift, limb holds 90 (or 45) degrees for full 10 seconds 7. Limb Ataxia: 0=Absent 8. Sensory: 0=Normal; no sensory loss 9. Best Language: 0=No aphasia, normal 10. Dysarthria: 0=Normal 11. Extinction and Inattention: 0=No abnormality 12. Distal motor function: 0=Normal Total: 2 Pre-admission Modified [place] Score: 1 __ 0 No symptoms at all __ 1 No significant disability despite symptoms; able to carry out all usual duties and activities __ 2 Slight disability; unable to carry out all previous activities, but able to look after own affairs without assistance __ 3 Moderate disability; requiring some help, but able to walk without assistance __ 4 Moderately severe disability; unable to walk without assistance and unable to attend to own bodily needs without assistance __ 5 Severe disability; bedridden, incontinent and requiring constant nursing care and attention Ancillary Data: Labs: Recent Results (from the past 24 hours) POCT glucose meter Collection Time: 07/05/24 4:26 AM Result Value Ref Range Glucose 104 (H) 70 - 100 mg/dL CBC Collection Time: 07/05/24 4:35 AM Result Value Ref Range Auto WBC 5.5 3.6 - 10.7 10*3/uL RBC 4.01 3.80 - 5.20 10*6/uL Hemoglobin 10.6 (L) 11.7 - 16.0 g/dL Hematocrit 32.8 (L) 35.0 - 47.0 % MCV 81.8 77.0 - 99.0 fL MCH 26.4 26.0 - 34.0 pg MCHC 32.3 30.5 - 36.0 % RDW 17.2 (H) 11.5 - 15.0 % Platelets 349 140 - 440 10*3/uL MPV 9.6 9.0 - 12.7 fL BMPI iSTAT (Lab Only) Collection Time: 07/05/24 4:41 AM Result Value Ref Range Sodium, WB 139 133 - 145 mmol/L POTASSIUM,WB 4.5 3.4 - 5.1 mmol/L CHLORIDE,WB 108 98 - 114 mmol/L CO2 WHOLE BLOOD 23 21 - 29 mmol/L ANION GAP 8.00 3.00 - 13.00 GLUCOSE, WB 104 (H) 70 - 100 mg/dL UREA NITROGEN, WB 14 4 - 22 mg/dL eGFR, Whole Blood 63.2 CREATININE, WB 0.9 0.6 - 1.3 mg/dL CALCIUM,IONIZED 4.50 4.30 - 5.20 mg/dl No results for input(s): "PH", "PO2", "PCO2", "HCO3", "O2SAT" in the last 72 hours. No lab exists for component: "BE" No results for input(s): "INR" in the last 72 hours. Radiology: CT head wo IV contrast Final Result 1. No acute intracranial hemorrhage or territorial infarct. Chronic left cerebellar infarct. 2. 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 3. Moderate focal narrowing at the origin of left vertebral artery. 4. No regional areas of infarct or penumbra seen on CT perfusion imaging. 5. Ellipsoid mixed attenuation densities in the right ocular globe, new from 04/03/2024. These may be areas of intraocular hemorrhage among other possibilities. CRITICAL TEST RESULT COMMUNICATION: Critical findings discussed with Dr. Shabazz at 07/05/2024 4:46 AM EST. Report Dictated on Electronically Signed By: Cirilo Ray DR Electronically Signed Date/Time: 07/05/2024 5:03 AM EST CTA head neck angio w and wo IV contrast Final Result 1. No acute intracranial hemorrhage or territorial infarct. Chronic left cerebellar infarct. 2. 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 3. Moderate focal narrowing at the origin of left vertebral artery. 4. No regional areas of infarct or penumbra seen on CT perfusion imaging. 5. Ellipsoid mixed attenuation densities in the right ocular globe, new from 04/03/2024. These may be areas of intraocular hemorrhage among other possibilities. CRITICAL TEST RESULT COMMUNICATION: Critical findings discussed with Dr. Shabazz at 07/05/2024 4:46 AM EST. Report Dictated on Electronically Signed By: Cirilo Ray DR Electronically Signed Date/Time: 07/05/2024 5:[address] PERFUSION Final Result 1. No acute intracranial hemorrhage or territorial infarct. Chronic left cerebellar infarct. 2. 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 3. Moderate focal narrowing at the origin of left vertebral artery. 4. No regional areas of infarct or penumbra seen on CT perfusion imaging. 5. Ellipsoid mixed attenuation densities in the right ocular globe, new from 04/03/2024. These may be areas of intraocular hemorrhage among other possibilities. CRITICAL TEST RESULT COMMUNICATION: Critical findings discussed with Dr. Shabazz at 07/05/2024 4:46 AM EST. Report Dictated on Electronically Signed By: Cirilo Ray DR Electronically Signed Date/Time: 07/05/2024 5:03 AM EST ASSESSMENT Control blood pressure, SBP <150 Emergent ophthalmology consult MRI in AM Treat as aneurysm Endovascular consult for aneurysm PLAN/RECOMMENDATIONS: Reason for no use of thrombolytic if applicable:NOT A STROKE Reason if no thrombectomy if applicable: not identified vascular occlusion accesable for intervention ICH score: GCS score at presentation:.points ICH volume (ABC/2 cm3): . points Intraventricular hemorrhage: No= 0 points Origin of ICH : . points Age: > 80 =1 points Final score :N/A SAH H&H score: __ 1 No symptoms at all. minimal headache and slight nuchal rigidity __ 1 Minimal headache and or slight nuchal rigidity NO FOCAL DEFICITS __ 2 Severe headache or nuchal rigidity, NO Focal neurological deficits EXCEPT for CN palsy __ 3 Drowsiness with minimal neurological deficits __ 4 Stupor; moderate to severe hemiparesis; possible early decerebrate rigidity and vegetative disturbances __ 5 Deep coma; decerebrate rigidity; moribund Final score [address] Shabazz Cosigned by Sirisha Shabazz MD at 07/05/2024 3:26 PM EST Associated attestation - Sirisha Shabazz MD - 07/05/2024 3:26 PM EST Neuro Critical Care / stroke Attending Patient seen via remote access , personal discussion however with significant aid from the resident at bedside as patient was uncomfortable do to pain around her right eye She developed her sudden headache and visual changes at the same time , Her CT suggested presence of a heterogenous density on her right orbit , new when comparing to the prior studies which could represent a retine detachment or a vitreous hemorrhage We consulted ophthalmology stat who identified acute angle closure glaucoma, and vitreous hemorrhage This was felt to be the cause of her headache and sudden visual changes and NOT a stroke The remaining of her imaging's CT head was normal other than above CTP was negative CTA head and neck significant for the presence of right 3 mm cavernous aneurysm, this was felt to be an incidental finding, however because of the anatomicals location in ipsilateral eye decided to ask endovascular to see while in the hospital , If no need to do anything as inpatient at least they can follow up as outpatient Since evaluation this morning MRI brain also obtained ( this was to ensure absence of pathology around the area of the aneurysm ) This demonstrated NO acute findings , Since evaluation this morning ,endovascular has seen patient and also plan to follow up aneurysm in 6 months as outpatient I personally interviewed and examined this patient , reviewed , corrected, agreed and attested the note for this patient. I reviewed the chart including MAR, labs, neuroimaging, other imaging studies and discussed my diagnostic impression and patient's plan of care with my [facility]/resident/ Fellow , student and the consulting team and patient's family members/surrogate decision makers (in cases where the patient is incapacitated and unable to participate in their own care). [x] Encounter Remote acces [x] Critical care time [x] Time spend [x] 50 [x] No longer neurological follow up needed, will sign off, let us know if need for further assistance Personal discussion of test results and plan of care with: Patient treatments and testing options informed consent and plan of care, ED physician, Neuroradiology, Interventional team, . Thank you Jared Evans MD for the opportunity to be involved in this patient's care. [facility] Phone: 07-05-2024 Physician Emergency department Note Emergency Department Encounter Location: [facility] EMERGENCY DEPT Patient: Mel Pop : 1940 Date of evaluation: 07/05/2024 ED Provider: Jhonatan Hernandez MD Time received sign-out: 0700 Mel Pop was checked out to me by Dr. Nunes. Please see his/her initial documentation for details of the patient's initial ED presentation, physical exam and completed studies. In brief, Mel Pop is a 83 y.o. adult that presented to the emergency department with right eye vision loss and a headache. I have reviewed and interpreted all of the currently available lab results and diagnostics from this visit: Results for orders placed or performed during the hospital encounter of 07/05/24 POCT glucose meter Collection Time: 07/05/24 4:26 AM Result Value Ref Range Glucose 104 (H) 70 - 100 mg/dL CBC Collection Time: 07/05/24 4:35 AM Result Value Ref Range Auto WBC 5.5 3.6 - 10.7 10*3/uL RBC 4.01 3.80 - 5.20 10*6/uL Hemoglobin 10.6 (L) 11.7 - 16.0 g/dL Hematocrit 32.8 (L) 35.0 - 47.0 % MCV 81.8 77.0 - 99.0 fL MCH 26.4 26.0 - 34.0 pg MCHC 32.3 30.5 - 36.0 % RDW 17.2 (H) 11.5 - 15.0 % Platelets 349 140 - 440 10*3/uL MPV 9.6 9.0 - 12.7 fL Serial Troponin, High Sensitivity Collection Time: 07/05/24 4:35 AM Result Value Ref Range Troponin HS, Serial Baseline 14 <=14 ng/L PROTIME/INR & PTT Collection Time: 07/05/24 4:35 AM Result Value Ref Range PROTHROMBIN TIME 11.7 9.0 - 12.0 s INR 1.0 0.9 - 1.1 APTT 30.4 20.0 - 30.5 s BMPI iSTAT (Lab Only) Collection Time: 07/05/24 4:41 AM Result Value Ref Range Sodium, WB 139 133 - 145 mmol/L POTASSIUM,WB 4.5 3.4 - 5.1 mmol/L CHLORIDE,WB 108 98 - 114 mmol/L CO2 WHOLE BLOOD 23 21 - 29 mmol/L ANION GAP 8.00 3.00 - 13.00 GLUCOSE, WB 104 (H) 70 - 100 mg/dL UREA NITROGEN, WB 14 4 - 22 mg/dL eGFR, Whole Blood 63.2 CREATININE, WB 0.9 0.6 - 1.3 mg/dL CALCIUM,IONIZED 4.50 4.30 - 5.20 mg/dl ECG 12 lead if not already done by Squad Collection Time: 07/05/24 5:54 AM Result Value Ref Range Heart Rate 59 bpm QRSD Interval 98 ms QT Interval 423 ms QTC Interval 418 ms P [place] 0 degrees QRS [place] 37 degrees T Wave [place] 29 degrees ND Interval 0 ms Troponin, High Sensitivity, Serial, Second Test Collection Time: 07/05/24 8:33 AM Result Value Ref Range Troponin HS, Serial Second 9 <=14 ng/L Troponin HS Delta, Baseline to Second -5 <=2 ng/L Comprehensive metabolic panel Collection Time: 07/05/24 8:33 AM Result Value Ref Range SODIUM 139 136 - 145 mmol/L POTASSIUM 4.3 3.5 - 5.1 mmol/L CHLORIDE 107 98 - 107 mmol/L CARBON DIOXIDE 22 (L) 23 - 31 mmol/L ANION GAP 10 3 - 13 mmol/L UREA NITROGEN 13 9 - 23 mg/dL CREATININE 0.82 0.57 - 1.11 mg/dL GLUCOSE 118 (H) 82 - 115 mg/dL CALCIUM 9.2 8.8 - 10.0 mg/dL AST (SGOT) 26 <34 U/L ALT 23 <30 U/L ALKALINE PHOSPHATASE 94 40 - 150 U/L ALBUMIN 3.6 3.4 - 4.8 g/dL BILIRUBIN, TOTAL 0.7 <1.2 mg/dL TOTAL PROTEIN 7.0 6.4 - 8.3 g/dL eGFR 70.6 >60.0 mL/min/1.73m*2 Hemoglobin A1c Collection Time: 07/05/24 8:33 AM Result Value Ref Range HEMOGLOBIN A1C 5.8 (H) <5.7 %HbA1C ESTIMATED AVERAGE GLUCOSE 120 mg/dL MR brain wo contrast Final Result 1. Regions of old infarct in the cerebellar hemispheres and right middle cerebral artery territory 2. No acute intracranial abnormality. Report Dictated on Electronically Signed By: Ming Fry MD Electronically Signed Date/Time: 07/05/2024 12:[address] head wo IV contrast Final Result 1. No acute intracranial hemorrhage or territorial infarct. Chronic left cerebellar infarct. 2. 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 3. Moderate focal narrowing at the origin of left vertebral artery. 4. No regional areas of infarct or penumbra seen on CT perfusion imaging. 5. Ellipsoid mixed attenuation densities in the right ocular globe, new from 04/03/2024. These may be areas of intraocular hemorrhage among other possibilities. CRITICAL TEST RESULT COMMUNICATION: Critical findings discussed with Dr. Shabazz at 07/05/2024 4:46 AM EST. Report Dictated on Electronically Signed By: Cirilo Ray DR Electronically Signed Date/Time: 07/05/2024 5:03 AM EST CTA head neck angio w and wo IV contrast Final Result 1. No acute intracranial hemorrhage or territorial infarct. Chronic left cerebellar infarct. 2. 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 3. Moderate focal narrowing at the origin of left vertebral artery. 4. No regional areas of infarct or penumbra seen on CT perfusion imaging. 5. Ellipsoid mixed attenuation densities in the right ocular globe, new from 04/03/2024. These may be areas of intraocular hemorrhage among other possibilities. CRITICAL TEST RESULT COMMUNICATION: Critical findings discussed with Dr. Shabazz at 07/05/2024 4:46 AM EST. Report Dictated on Electronically Signed By: Cirilo Ray DR Electronically Signed Date/Time: 07/05/2024 5:[address] PERFUSION Final Result 1. No acute intracranial hemorrhage or territorial infarct. Chronic left cerebellar infarct. 2. 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 3. Moderate focal narrowing at the origin of left vertebral artery. 4. No regional areas of infarct or penumbra seen on CT perfusion imaging. 5. Ellipsoid mixed attenuation densities in the right ocular globe, new from 04/03/2024. These may be areas of intraocular hemorrhage among other possibilities. CRITICAL TEST RESULT COMMUNICATION: Critical findings discussed with Dr. Shabazz at 07/05/2024 4:46 AM EST. Report Dictated on Electronically Signed By: Cirilo Ray DR Electronically Signed Date/Time: 07/05/2024 5:03 AM EST Final ED Course and MDM: Mel Pop is a 83 y.o. whose care was signed out to me by the outgoing provider. In brief, this patient presents with right eye vision loss and headache. Stroke code was called. An aneurysm was found on CT angiogram. CT perfusion showed no regional areas of infarct. Imaging also showed areas of intraocular hemorrhage in the right eye. Ophthalmology was consulted. Dr. Carlson from ophthalmology evaluated the patient. He noted increased intraocular pressure in the right eye. He took the patient emergently to his eye clinic and performed a iridotomy. Placed recommendations for eyedrops for further treatment of glaucoma and I placed the orders for these meds. Agreed with admission. In the interim, patient received an MRI brain that showed older infarcts. Will continue with admission given the persistent hypertension and also for treatment of glaucoma. Pt continued to have headache so ordered morphine 4 mg IV. I [place]. [place] [facility] [place] who accepted the admit. Medications sodium chloride 0.9% (NS) flush 5-40 mL ( IntraVENous Not Given 07/05/24 0430) sodium chloride 0.9% (NS) flush 5-40 mL (has no administration in time range) sodium chloride 0.9 % infusion (has no administration in time range) sodium chloride 0.9 % infusion (50 mL/hr IntraVENous Rate/Dose Verify 07/05/24 0922) labetalol (Normodyne,Trandate) injection 10 mg (has no administration in time range) sodium chloride 0.9% (NS) flush 10 mL (10 mL IntraVENous Not Given 07/05/24 0900) sodium chloride 0.9% (NS) flush 10 mL (has no administration in time range) ondansetron ODT (Zofran-ODT) disintegrating tablet 4 mg ( Oral See Alternative 07/05/24 1228) Or ondansetron (Zofran) injection 4 mg (4 mg IntraVENous Given 07/05/24 1228) bisacodyl (Dulcolax) suppository 10 mg (has no administration in time range) magnesium sulfate 1,000 mg in sodium chloride 0.9 % 100 mL IVPB (has no administration in time range) hydrALAZINE (Apresoline) injection 10 mg (10 mg IntraVENous Given 07/05/24 1226) naloxone (Narcan) injection 0.4 mg (has no administration in time range) HYDROmorphone (Dilaudid) injection 0.25 mg ( IntraVENous See Alternative 07/05/24 1005) Or HYDROmorphone (Dilaudid) injection 0.5 mg (0.5 mg IntraVENous Given 07/05/24 1005) timolol (Timoptic) 0.5 % ophthalmic solution 1 drop (has no administration in time range) brimonidine (AlphaGAN) 0.2 % ophthalmic solution 1 drop (has no administration in time range) dorzolamide (Trusopt) 2 % ophthalmic solution 1 drop (has no administration in time range) prednisoLONE acetate (Pred-Forte) 1 % ophthalmic suspension 1 drop (1 drop Right Eye Given 07/05/24 1235) morphine injection 4 mg (has no administration in time range) sodium chloride 0.9 % bolus 250 mL (0 mL IntraVENous Stopped 07/05/24 0642) iopamidol (Isovue-370) 76 % injection 100 mL (100 mL IntraVENous Given 07/05/24 0440) ondansetron (Zofran) injection 4 mg (4 mg IntraVENous Given 07/05/24 0445) fentaNYL (Sublimaze) injection 25 mcg (25 mcg IntraVENous Given 07/05/24 0451) hydrALAZINE (Apresoline) injection 10 mg (10 mg IntraVENous Given 07/05/24 0517) I am not the ice cream chef of record. Dr. Nunes is the ice cream chef of record. Final Impression 1. Vision loss of right eye 2. Acute intractable headache, unspecified headache type DISPOSITION Observation 07/05/2024 01:21:52 PM (Please note that portions of this note may have been completed with a voice recognition program. Efforts were made to edit the dictations but occasionally words are mis-transcribed.) Jhonatan Hernandez MD [employer] Jhonatan Hernandez MD 07/05/24 1322 [facility] 06-19-2024 Note HNO ID: [id number] Author: JOSE GONZALEZ RPh Service: Pharmacy Author Type: Pharmacist Type: Plan of Care Filed: 06/19/2024 13:35 Note Text: DISCHARGE MEDICATION REVIEW BY PHARMACY Patient Name: Mel Castillo Account #: Data Unavailable Admission Date: 06/10/2024 Date of Contact: June 19, 2024 Time of Contact: 1:31 PM Medication list was reviewed by a Pharmacist for drug interactions or drug related problems:Yes Below is a summary of pharmacist recommendations discussed with LIP: No recommendations at this time from discharge medication list. Ischemic Stroke Care Path Core Measures High intensity statin ordered? Yes: Atorvastatin 80 mg daily Antithrombotic ordered? AC: enoxaparin subq 70 mg (1 mg/kg) q12 hours Additional Neuro Recs? -Follow up outpatient with neuroendovascular for ICA aneurysm Jose Gonzalez RPh Pager: Nora/Hailey chat 06/19/2024 1:31 PM Medication List START taking these medications atorvastatin 80 mg tablet Commonly known as: LIPITOR Take 1 tablet by mouth daily at bedtime. enoxaparin 80 mg/0.8 mL Commonly known as: LOVENOX Inject 0.7 mL subcutaneously every 12 hours. lidocaine 4 % patch Commonly known as: SALONPAS Apply 1 Patch as directed once daily. APPLY TO: SHOULDER Left - Remove patch after 12 hours. Start taking on: June 20, 2024 CHANGE how you take these medications lisinopril 10 mg tablet Commonly known as: ZESTRIL Take 1 tablet by mouth once daily. Start taking on: June 20, 2024 What changed: medication strength how much to take metoprolol tartrate (short acting) 25 mg tablet Commonly known as: LOPRESSOR Take 0.5 tablets by mouth every 12 hours. What changed: how much to take CONTINUE taking these medications acetaminophen 325 mg tablet Commonly known as: TYLENOL Take 2 tablets by mouth every 6 hours as needed for pain. albuterol HFA 90 mcg/actuation inhaler Commonly known as: PROVENTIL HFA, VENTOLIN HFA pantoprazole DR 40 mg tablet Commonly known as: PROTONIX Take 1 tablet by mouth twice daily before meals (0600/1600). TRELEGY ELLIPTA 100-62.5-25 mcg inhalation powder Generic drug: qupfswkckrz-tyglpnyki-itkneyjw VITAMIN C 500 mg tablet Generic drug: ascorbic acid (vitamin C) Take 1 tablet by mouth three times daily. STOP taking these medications EWAQUIS DVT-PE TREAT 30D START 5 mg (74 tabs) Generic drug: apixaban lactobacillus rhamnosus 10 billion cell capsule Commonly known as: CULTURELLE LASIX 40 mg tablet Generic drug: furosemide warfarin 5 mg tablet Commonly known as: COUMADIN zinc oxide 20 % ointment [facility] 06-19-2024 Note HNO ID: [id number] Author: ROSLYN ROSE RN Service: Care Management Author Type: Registered Nurse Type: Care Mgt Progress Note Filed: 06/19/2024 13:11 Note Text: CARE MANAGEMENT DISCHARGE NOTE SERVICE DATE: June 19, 2024 SERVICE TIME: 1:10 PM Admission Date: 06/10/2024 LOS: 8 days Discharge Arrangement Discharge Arrangement: Acute Rehabilitation Facility Services Arranged Provider Name: Taylor Patiño [facility] Caregiver Assessment Caregiver is ready, willing and able to meet the patient's needs as recommended by the inter-professional team: Yes Name of Caregiver: Taylor Muir Transportation Arrangements Transportation Arrangements: Ambulance Transportation Agency and Phone #:: [facility] ( [place] ) [phone] / [phone] Date of Trip: 06/19/24 Time of Trip: 1800 Type of Service: BLS Non-emergency [place] Location: [facility] Destination: [facility] Financial Care Management Responsibility: None Handoff Communication: Handoff to: Specialty Nude Model Specialty Nude Model Name/Phone: Taylor Patiño [facility] Additional Information: Patient has insurance precert and is discharging to [facility] today via [facility] at 6:00 PM. Spoke with patient at bedside and son José Miguel via phone who are aware and agreeable. Transfer envelope with chart. Care team aware via [employer] chat. Discharge Information Row Name ED to Hosp-Admission (Current) from 06/10/2024 in [place] [address] NEURO/CARD Rehab Facility Agency [facility] - Taylor Patiño SIGNATURE: Roslyn Rose RN PATIENT NAME: Mel Castillo DATE: June 19, 2024 TIME: 1:10 PM CONTACT #: [phone] [facility] 06-19-2024 Note HNO ID: [id number] Author: DON EDWARDS DO Service: Hospital Medicine Author Type: Physician Type: Progress Notes Filed: 06/19/2024 12:53 Note Text: DEPARTMENT OF HOSPITAL MEDICINE PROGRESS NOTE SERVICE DATE: 06/19/2024 SERVICE TIME: 10:10 AM Hospital Medicine/Primary Attending: Don Edwards DO NIGHT AND WEEKEND COVERAGE: [place] COVER[employer]: From 7am - 7pm, please call [phone] After 7pm, please call cross cover pager #[phone] Subjective INTERVAL HPI: Pt seen and examined. EPIC reviewed. Diarrhea yest morning. None documented yesterday afternoon, evening. No further episodes of diarrhea. Ready to go! MEDICATIONS: Reviewed Objective PHYSICAL EXAM: BP 146/61 Pulse 61 Temp (Src) 97.9 (Oral) Resp 18 Ht 5' 4" (1.63m) Wt 152 lb 1.9 oz (69.0kg) SpO2 99% BMI 26.10 kg/(m2). O2 Therapy: Room Air Physical Exam Performed GENERAL: Alert, no distress, cooperative HEAD/SINUSES: No significant findings EYES: PERRLA, EOMI OROPHARYNX: Lips, mucosa, and tongue normal. Teeth and gums normal. Oropharynx normal. LUNGS: Lungs clear to auscultation, Good diaphragmatic excursion CARDIAC: Normal S1 and S2; no rubs, murmurs, or gallops ABDOMEN: Abdomen soft, non-tender, BS normal, No masses or organomegaly EXTREMITIES: Extremities normal, no deformities, edema, clubbing or skin discoloration. Good capillary refill. NEURO: dysarthria and episode expressive aphasia. Lines, Drains, and Airways Line Duration Peripheral Short Right Forearm 22 Gauge -- days Peripheral 06/12/24 0427 [facility] Short Right Forearm 20 Gauge 7 days Reviewed lines and needs to be continued: REASONS: Difficulty in obtaining/maintaining access DATA: Diagnostic tests reviewed for today's visit: Most recent labs and imaging results. 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 Rehab at [place]. Will need to follow up with neurology as OP. Lipitor 80 mg daily. Cardiac mass: lovenox for anticoagulation and clotting with eliquis and now stroke with coumadin. Patient declined further work up for surgical intervention due to comorbidities. Seen by cardiology this stay. Recommend OP follow up. Chronic atrial fibrillation: lovenox for stroke prevention and lopressor 12.5 mg bid for rate control. R cavernous ICA aneurysm: outpatient follow up with NIL. R shoulder pain: cont with salonpas patch. Bilateral hydronephrosis: on consult. Ceballos placed. Plan on voiding trial day of discharge per urology note. Hematuria: urology following. Monitoring and improving. L Renal lesion: follow up with urology. COPD: not in acute exacerbation. HTN: increased lisinopril to 10 mg daily. Cont with lopressor. Cannot increase due to heart rate. Monitor trend and adjust meds as needed. Diarrhea: resolved. Medication and Non-Pharmacologic VTE Prophylaxis/Anticoagulants Anticoagulant AND Antiplatelet Medications (From admission, onward) Start Dose Route Frequency Last Action Ordered Stop 06/13/24 1800 enoxaparin 70 mg injection (LOVENOX) (enoxaparin injection (LOVENOX)) 1 mg/kg/dose SUBCUTANEOUS EVERY 12 HOURS Given, 06/19 0443 06/13/24 1331 -- 06/11/24 0730 vte current anticoag therapy ([place], [place]) 06/11/24 0730 activity - mobilize patient ([place], [place]) VTE Prophylaxis: VTE prophylaxis appropriate Disposition: Acute Rehab Plan of care discussed with: Provider, RN, Patient SIGNATURE: Don Edwards DO PATIENT NAME: Mel Castillo DATE: June 19, 2024 TIME: 10:10 AM etx [id number] [facility] 06-18-2024 Note HNO ID: [id number] Author: ANABEL VEGA, ? Service: Care Management Author Type: ? Type: Care Mgt Progress Note Filed: 06/18/2024 17:18 Note Text: [facility] PRECERT NOTE [employer] MEDICARE PPO approved Inpatient Rehab Facility for [facility] - Taylor Patiño. Precert approved for dates: - 06/26/2024. For any additional questions regarding approvals, transport or care management needs, please contact the CM assigned to this patient in the Treatment Team. SIGNATURE: Anabel Khalil Page DATE: June 18, 2024 TIME: 5:17 PM [facility] 06-18-2024 Note HNO ID: [id number] Author: MARK MINOR DO Service: Hospital Medicine Author Type: Physician Type: Progress Notes Filed: 06/18/2024 16:17 Note Text: DEPARTMENT OF HOSPITAL MEDICINE PROGRESS NOTE SERVICE DATE: 06/18/2024 SERVICE TIME: 4:06 PM Hospital Medicine/Primary Attending: Mark Minor DO NIGHT AND WEEKEND COVERAGE: After 7pm please page [phone] SUBJECTIVE: Patient seen examined at bedside. No new acute complaints or concerns reported, no events reported overnight. This morning has had diarrhea with 5 episodes prior to lunchtime no further episodes since lunch. Denies any abdominal pain. OBJECTIVE: PHYSICAL EXAM: BP 156/62 Pulse 61 Temp (Src) 98.9 (Oral) Resp 17 Ht 5' 4" (1.63m) Wt 152 lb 1.9 oz (69.0kg) SpO2 98% BMI 26.10 kg/(m2). O2 Therapy: Room Air GENERAL: Alert, no distress, cooperative HEAD/SINUSES: No significant findings EYES: PERRLA, EOMI OROPHARYNX: Lips, mucosa, and tongue normal. Teeth and gums normal. Oropharynx normal. LUNGS: Lungs clear to auscultation, Good diaphragmatic excursion CARDIAC: Normal S1 and S2; no rubs, murmurs, or gallops ABDOMEN: Abdomen soft, non-tender, BS normal, No masses or organomegaly EXTREMITIES: Extremities normal, no deformities, edema, clubbing or skin discoloration. Good capillary refill. NEURO: dysarthria and some intermittent expressive aphasia. MEDICATIONS: Current Facility-Administered Medications Medication Dose Route Frequency pantoprazole DR 40 mg tab(s) (PROTONIX) 40 mg ORAL DAILY (6 AM) NaCl 0.9% iv flush bag 20 mL INTRAVENOUS PRN atorvastatin 80 mg tab(s) (LIPITOR) 80 mg ORAL/FEEDING TUBE AT BEDTIME acetaminophen 650 mg tab(s) (TYLENOL) 650 mg ORAL/FEEDING TUBE q 4 H PRN ondansetron (PF) 4 mg injection (ZOFRAN) 4 mg INTRAVENOUS q 6 H PRN metoprolol tartrate (short acting) 12.5 mg tab(s) (LOPRESSOR) 12.5 mg ORAL q 12 H enoxaparin 70 mg injection (LOVENOX) 1 mg/kg/dose SUBCUTANEOUS q 12 HR polyethylene glycol 3350 17 g packet 17 g ORAL DAILY senna-docusate 8.6-50 mg 2 tablet (SENNA-S) 2 tablet ORAL BID lidocaine 4 % 1 Patch (SALONPAS) 1 Patch TRANSDERMAL DAILY And lidocaine patch - REMOVE OTHER AT BEDTIME And lidocaine - VERIFY PATCH OTHER q 8 H lisinopril 10 mg tab(s) (ZESTRIL) 10 mg ORAL DAILY DATA: Diagnostic tests reviewed for today's visit: CBC: Recent Labs 06/18/24 0600 WBC 5.29 RBC 4.01 HB 10.7* HCT 34.3* PLT 273 MCV 85.5 MCH 26.7 MPV 10.0 Coags: No results for input(s): "PT", "INR", "APTT" in the last 24 hours. BMP: Recent Labs 06/18/24 0600 NA 141 K 4.4 CHLOR 110* CO2 21* BUN 22* CREAT 0.96 GLUC 112* CMP: Recent Labs 06/18/24 0600 NA 141 K 4.4 CHLOR 110* CO2 21* BUN 22* CREAT 0.96 GLUC 112* TPROT 6.0* CA 8.9 MG 1.9 TBILI 0.3 ALKPHOS 80 ALT 16 AST 20 ANION 10 Cardiac Enzymes: No results for input(s): "CK", "MB", "CKMB", "TROPT" in the last 24 hours. Liver Function, Amylase, Lipase: Recent Labs 06/18/24 0600 TPROT 6.0* ALB 3.5* ALT 16 AST 20 ALKPHOS 80 TBILI 0.3 MG/PHOS: Recent Labs 06/18/24 0600 MG 1.9 Renal Panel: Recent Labs 06/18/24 0600 CREAT 0.96 BUN 22* GLUC 112* CA 8.9 CHLOR 110* K 4.4 CO2 21* NA 141 Heme: No results for input(s): "RETICP", "ABSRETIC", "LD", "MIKALA", "FE", "TIBC","TRANSFERSAT" in the last 24 hours. No results found for: "UALBCR" Assessment/Plan This is a 83 year old female with: #Diarrhea-5 episodes today none since noon -Monitor-if continues to have a need to send for stool studies/c.dif -Hold laxatives #Acute embolic stroke with subtherapeutic INR and cardiac mass: lovenox weight based BID as patient has had clots on eliquis in past and now event with subtherapeutic coumadin. Rehab at [place]. Will need to follow up with neurology as OP. Lipitor 80 mg daily. #Cardiac mass: lovenox for anticoagulation and clotting with eliquis and now stroke with coumadin. Patient declined further work up for surgical intervention due to comorbidities. Seen by cardiology this stay. Recommend OP follow up. #Chronic atrial fibrillation: lovenox for stroke prevention and lopressor 12.5 mg bid for rate control. #R cavernous ICA aneurysm: outpatient follow up with NIL. #R shoulder pain: cont with salonpas patch. #Bilateral hydronephrosis: on consult. Ceballos placed. Plan on voiding trial day of discharge per urology note. #Hematuria: urology following. Monitoring and improving. #L Renal lesion: follow up with urology. #COPD: not in acute exacerbation. #HTN: increase lisinopril to 10 mg daily. Cont with lopressor. Cannot increase due to heart rate. Monitor trend and adjust meds as needed. VTE Prophylaxis: lovenox 70 BID Disposition: Acute rehab Plan of care discussed with: Provider, RN, Patient. Problem List Dizziness (POA: Status not on file) HTN (hypertension) (POA: Yes) Hypothyroidism (POA: Yes) Chronic atrial (more content not included)... [facility] 06-18-2024 Note HNO ID: [id number] Author: ROSLYN ROSE RN Service: Care Management Author Type: Registered Nurse Type: Care Mgt Progress Note Filed: 06/18/2024 12:32 Note Text: CARE MANAGEMENT PROGRESS NOTE SERVICE DATE: 06/18/2024 SERVICE TIME: 9:01 AM LOS: 7 days Chart reviewed. [facility] Will need [facility] and cot transport. CM to follow for transitional care planning. ADDENDUM at 10:20 AM- Spoke with patient at bedside and provided update on pending precert. Received message from [facility] that insurance is requesting updated PT/OT evals and notified therapy. SIGNATURE: Roslyn Rose RN PATIENT NAME: Mel Castillo DATE: June 18, 2024 TIME: 9:01 AM PAGER/CONTACT #: [phone] [facility] 06-17-2024 Note HNO ID: [id number] Author: DON EDWARDS DO Service: Hospital Medicine Author Type: Physician Type: Progress Notes Filed: 06/17/2024 13:52 Note Text: DEPARTMENT OF HOSPITAL MEDICINE PROGRESS NOTE SERVICE DATE: 06/17/2024 SERVICE TIME: 11:15 AM Hospital Medicine/Primary Attending: Don Edwards DO NIGHT AND WEEKEND COVERAGE: [employer] COVERAGE: From 7am - 7pm, please call [phone] After 7pm, please call cross cover pager #[phone] Subjective INTERVAL HPI: Pt seen and examined. EPIC reviewed. Dizziness still about the same. Angry about not being discharged yet. MEDICATIONS: Reviewed Objective PHYSICAL EXAM: BP 178/84 Pulse 61 Temp (Src) 96.2 (Oral) Resp 19 Ht 5' 4" (1.63m) Wt 152 lb 1.9 oz (69.0kg) SpO2 96% BMI 26.10 kg/(m2). O2 Therapy: Room Air Physical Exam Performed GENERAL: Alert, no distress, cooperative HEAD/SINUSES: No significant findings EYES: PERRLA, EOMI OROPHARYNX: Lips, mucosa, and tongue normal. Teeth and gums normal. Oropharynx normal. LUNGS: Lungs clear to auscultation, Good diaphragmatic excursion CARDIAC: Normal S1 and S2; no rubs, murmurs, or gallops ABDOMEN: Abdomen soft, non-tender, BS normal, No masses or organomegaly EXTREMITIES: Extremities normal, no deformities, edema, clubbing or skin discoloration. Good capillary refill. NEURO: dysarthria and some intermittent expressive aphasia. Lines, Drains, and Airways Line Duration Peripheral Short Right Forearm 22 Gauge -- days Peripheral 06/12/24 0427 [facility] Short Right Forearm 20 Gauge 5 days Reviewed lines and needs to be continued: REASONS: Difficulty in obtaining/maintaining access DATA: Diagnostic tests reviewed for today's visit: Most recent labs and imaging results. 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 who is on warfarin for A-fib with subtherapeutic INR presenting with dizziness, vomiting, was admitted for CVA. MRI showed multiple sites of stroke but no large vessel cerebrovascular disease. Echo EF 60% large left atrial somewhat mobile mass that did not appear to be a thrombus crossing the interatrial septum. Cardiology saw patient in hospital and recommended Lovenox at discharge for lifelong as she had previously had a clot while on eliquis. She was seen by therapy and [facility]. 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 Rehab at [place]. Will need to follow up with neurology as OP. Lipitor 80 mg daily. Cardiac mass: lovenox for anticoagulation and clotting with eliquis and now stroke with coumadin. Patient declined further work up for surgical intervention due to comorbidities. Seen by cardiology this stay. Recommend OP follow up. Chronic atrial fibrillation: lovenox for stroke prevention and lopressor 12.5 mg bid for rate control. R cavernous ICA aneurysm: outpatient follow up with NIL. R shoulder pain: cont with salonpas patch. Bilateral hydronephrosis: on consult. Ceballos placed. Plan on voiding trial day of discharge per urology note. Hematuria: urology following. Monitoring and improving. L Renal lesion: follow up with urology. COPD: not in acute exacerbation. HTN: increase lisinopril to 10 mg daily. Cont with lopressor. Cannot increase due to heart rate. Monitor trend and adjust meds as needed. Medication and Non-Pharmacologic VTE Prophylaxis/Anticoagulants Anticoagulant AND Antiplatelet Medications (From admission, onward) Start Dose Route Frequency Last Action Ordered Stop 06/13/24 1800 enoxaparin 70 mg injection (LOVENOX) (enoxaparin injection (LOVENOX)) 1 mg/kg/dose SUBCUTANEOUS EVERY 12 HOURS Given, 06/17 0515 06/13/24 1331 -- 11/25/24 0730 vte current [place]ag therapy ([place]) 06/11/24729 activity - mobilize [place] ([place]) VTE Prophylaxis: VTE prophylaxis appropriate Disposition: Acute Rehab Plan of care discussed with: Provider, RN, Patient SIGNATURE: Don Edwards DO PATIENT NAME: Mel Castillo DATE: June 17, 2024 TIME: 11:15 AM etx [id number] [facility] 06-16-2024 Note HNO ID: [id number] Author: DON EDWARDS DO Service: Hospital Medicine Author Type: Physician Type: Progress Notes Filed: 06/16/2024 13:06 Note Text: DEPARTMENT OF HOSPITAL MEDICINE PROGRESS NOTE SERVICE DATE: 06/16/2024 SERVICE TIME: 11:00 AM Hospital Medicine/Primary Attending: Don Edwards DO NIGHT AND WEEKEND COVERAGE: [employer] COVERAGE: From 7am - 7pm, please call [phone] After 7pm, please call cross cover pager #[phone] Subjective INTERVAL HPI: Pt seen and examined. EPIC reviewed. Still with dizziness when she moves her head certain ways. And speech is still off. Slurred and sometimes things come out wrong. She is waiting for rehab and hoping it will be today. MEDICATIONS: Reviewed Objective PHYSICAL EXAM: BP 174/70 Pulse 59 Temp (Src) 97.5 (Oral) Resp 17 Ht 5' 4" (1.63m) Wt 152 lb 1.9 oz (69.0kg) SpO2 96% BMI 26.10 kg/(m2). O2 Therapy: Room Air Physical Exam Performed GENERAL: Alert, no distress, cooperative HEAD/SINUSES: No significant findings EYES: PERRLA, EOMI OROPHARYNX: Lips, mucosa, and tongue normal. Teeth and gums normal. Oropharynx normal. LUNGS: Lungs clear to auscultation, Good diaphragmatic excursion CARDIAC: Normal S1 and S2; no rubs, murmurs, or gallops ABDOMEN: Abdomen soft, non-tender, BS normal, No masses or organomegaly EXTREMITIES: Extremities normal, no deformities, edema, clubbing or skin discoloration. Good capillary refill. NEURO: dysarthia with some intermittent expressive aphasia Lines, Drains, and Airways Line Duration Peripheral Short Right Forearm 22 Gauge -- days Peripheral 06/12/24 0427 [facility] Short Right Forearm 20 Gauge 4 days Drain Duration Indwelling Urinary Catheter 06/11/24 1535 [facility] Ceballos 16 Fr 4 days Reviewed lines and needs to be continued: REASONS: Difficulty in obtaining/maintaining access DATA: Diagnostic tests reviewed for today's visit: Most recent labs and imaging results. 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 Rehab at [place]. Will need to follow up with neurology as OP. Lipitor 80 mg daily. Cardiac mass: lovenox for anticoagulation and clotting with eliquis and now stroke with coumadin. Patient declined further work up for surgical intervention due to comorbidities. Seen by cardiology this stay. Recommend OP follow up. Chronic atrial fibrillation: lovenox for stroke prevention and lopressor 12.5 mg bid for rate control. R cavernous ICA aneurysm: outpatient follow up with NIL. R shoulder pain: cont with salonpas patch. Bilateral hydronephrosis: on consult. Ceballos placed. Plan on voiding trial day of discharge per urology note. Hematuria: urology following. Monitoring and improving. L Renal lesion: follow up with urology. COPD: not in acute exacerbation. HTN: increase lisinopril to 10 mg daily. Cont with lopressor. Cannot increase due to heart rate. Monitor trend and adjust meds as needed. Medication and Non-Pharmacologic VTE Prophylaxis/Anticoagulants Anticoagulant AND Antiplatelet Medications (From admission, onward) Start Dose Route Frequency Last Action Ordered Stop 06/13/24 1800 enoxaparin 70 mg injection (LOVENOX) (enoxaparin injection (LOVENOX)) 1 mg/kg/dose SUBCUTANEOUS EVERY 12 HOURS Given, 06/16 0442 06/13/24 1331 -- 06/11/24 0730 vte current anticoag therapy ([place], [place]) 06/11/24 0730 activity - mobilize patient ([place]) VTE Prophylaxis: VTE prophylaxis appropriate Disposition: Acute Rehab Plan of care discussed with: Provider, RN, Patient SIGNATURE: Don Edwards DO PATIENT NAME: Mel Castillo DATE: June 16, 2024 TIME: 11:00 AM etx [phone] [facility] 06-15-2024 Note HNO ID: [id number] Author: ERA TELLES MD Service: Hospital Medicine Author Type: Physician Type: Progress Notes Filed: 06/15/2024 14:43 Note Text: INPATIENT PROGRESS NOTE CHIEF COMPLAINT: vertigo INTERVAL HPI: no new complaints. Still with R shoulder pain but better with lidocaine patch. Pt still with dizziness when trying to sit or change positions. PHYSICAL EXAM: BP 157/69 Pulse 55 Temp (Src) 97.5 (Oral) Resp 17 Ht 5' 4" (1.63m) Wt 152 lb 1.9 oz (69.0kg) SpO2 99% BMI 26.10 kg/(m2). O2 Therapy: Room Air GENERAL: Alert, no distress, cooperative LUNGS: Lungs clear to auscultation, Good diaphragmatic excursion CARDIAC: Normal S1 and S2; no rubs, murmurs, or gallops ABDOMEN: Abdomen soft, non-tender, BS normal, No masses or organomegaly, ceballos with bloody urine EXTREMITIES: no edema R shoulder pain with abduction DATA: Diagnostic tests reviewed for today's visit: CBC, Coags, BMP, Mg, Phos Recent Labs 06/15/24 0320 06/14/24 0441 06/13/24 0825 06/13/24 0137 06/12/24 1903 WBC 5.80 4.70 -- 4.79 -- HB 10.6* 11.0* -- 10.2* -- HCT 33.9* 34.8* -- 33.1* -- PLT 280 278 -- 287 -- APTT -- -- 51.3* 89.0* 56.1* NA -- -- -- 136 -- K -- -- -- 3.8 -- CHLOR -- -- -- 101 -- CO2 -- -- -- 24 -- BUN -- -- -- 16 -- CREAT -- -- -- 1.04* -- GLUC -- -- -- 95 -- CA -- -- -- 8.9 -- 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 (HCC) (POA: Status not on file) Recent Labs 06/15/24 1051 06/15/24 0721 06/14/24 2040 06/14/24 1610 06/14/24 1046 06/14/24 0750 06/13/24 1959 06/13/24 1616 PCGLUCOSE 101* 105* 112* 125* 100* 114* 113* 199* Assessment/Plan #Acute embolic strokes 2/2 chronic afib in the setting of subtherapeutic INR and Cardiac mass -was on heparin gtt and transitioned to lovenox -OP follow up with stroke neurology C/w lovenox, statn -PT/OT, plan for acute rehab #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 Diffuse osteopenia C/w lidocaine patch. No signs of infection May need ortho referral if not improving #Bilateral hydronephrosis Indeterminate L renal lesion Noted to have hematuria this am Seen by urology. Plan for VT tomorrow Hematuria improved. May need to hold lovenox if recurs Constipation -resolved GERD -PPI daily COPD Prior smoker -Not currently on oxygen Plan for acute rehab at [place] [facility] able to accept. Await precert Plan of care discussed with: Provider, RN, Patient. SIGNATURE: Era Telles MD PATIENT NAME: Mel Castillo DATE: June 15, 2024 TIME: 2:40 PM PAGER: [facility] 06-15-2024 Note HNO ID: [id number] Author: ISHAN MELIZA, FOOD SERVICES DIRECTOR.APPLICATIONS PROJECT MANAGER Service: Urology Author Type: Nurse Practitioner Type: Plan of Care Filed: 06/15/2024 12:16 Note Text: Urology Plan of Care Note RN reached out asking about a void trial today. Notes pt has bloody urine. Pt seen at bedside. Pt eating lunch. Vanessa urine in tubing at this time. Will place PRN irrigation orders if urine is bloody again. Page urology resident contract coordinator if urine is grade 4 or higher. Plan was to void trial prior to DC. Pt currently states she is unsure when she is going to rehab. CM note from this morning states waiting precert to [facility]. Since it is already after 12pm,, will maintain ceballos catheter. Can void trial tomorrow morning if plan is to DC 06/16. [facility] urology resident at 7am on day of DC for void trial orders. - D/W team. RN sent a secure chat message as she was in with another patient when I was on the unit. October06/15/2024 12:11 PM Page contract coordinator resident with questions [facility] 06-15-2024 Note HNO ID: [id number] Author: ROSLYN ROSE RN Service: Care Management Author Type: Registered Nurse Type: Care Mgt Progress Note Filed: 06/15/2024 09:38 Note Text: CARE MANAGEMENT PROGRESS NOTE SERVICE DATE: 06/15/2024 SERVICE TIME: 9:36 AM LOS: 4 days Chart reviewed. Insurance precert is pending for [facility]. Will need precert and cot transport. Will place transfer envelope with chart that has signed portable DNR form attached. CM to follow for transitional care planning. SIGNATURE: Roslyn Rose RN PATIENT NAME: Mel Castillo DATE: June 15, 2024 TIME: 9:36 AM PAGER/CONTACT #: [phone] [facility] 06-14-2024 Note HNO ID: [id number] Author: JENNIFER FERNANDEZ RN Service: Nursing Author Type: Registered Nurse Type: Nursing Progress Note Filed: 06/14/2024 17:35 Note Text: [id number]: paged urology for voiding trial awaiting response [facility] 06-14-2024 Note HNO ID: [id number] Author: ERA TELLES MD Service: Hospital Medicine Author Type: Physician Type: Progress Notes Filed: 06/14/2024 14:57 Note Text: INPATIENT PROGRESS NOTE CHIEF COMPLAINT: vertigo, R shoulder pain INTERVAL HPI: Pt c/o pain in her right shoulder . Still with dizziness on sitting up/walking No GABRIEL No fever/chills PHYSICAL EXAM: BP 141/70 Pulse 64 Temp (Src) 98.8 (Oral) Resp 18 Ht 5' 4" (1.63m) Wt 152 lb 1.9 oz (69.0kg) SpO2 94% BMI 26.10 kg/(m2). O2 Therapy: Room Air GENERAL: Alert, no distress, cooperative LUNGS: Lungs clear to auscultation, Good diaphragmatic excursion CARDIAC: Normal S1 and S2; no rubs, murmurs, or gallops ABDOMEN: Abdomen soft, non-tender, BS normal, No masses or organomegaly EXTREMITIES: right shoulder pain on abduction DATA: Diagnostic tests reviewed for today's visit: CBC, Coags, BMP, Mg, Phos Recent Labs 06/14/24 0441 06/13/24 0825 06/13/24 0137 06/12/24 1903 06/12/24 0450 06/12/24 0351 WBC 4.70 -- 4.79 -- -- 5.17 HB 11.0* -- 10.2* -- -- 10.6* HCT 34.8* -- 33.1* -- -- 34.6* PLT 278 -- 287 -- -- 314 APTT -- 51.3* 89.0* 56.1* < > 117.3* NA -- -- 136 -- -- 137 K -- -- 3.8 -- -- 4.0 CHLOR -- -- 101 -- -- 101 CO2 -- -- 24 -- -- 23 BUN -- -- 16 -- -- 12 CREAT -- -- 1.04* -- -- 1.02* GLUC -- -- 95 -- -- 109* CA -- -- 8.9 -- -- 9.2 MG -- -- -- -- -- 2.3 < > = values in this interval not displayed. 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 (HCC) (POA: Status not on file) Recent Labs 06/14/24 1046 06/14/24 0750 06/13/24 1959 06/13/24 1616 06/13/24 1124 PCGLUCOSE 100* 114* 113* 199* 114* Assessment/Plan #Acute embolic strokes 2/2 chronic afib in the setting of subtherapeutic INR and Cardiac mass -was on heparin gtt and transitioned to lovenox -OP follow up with stroke neurology C/w lovenox, statn -PT/OT, plan for acute rehab #3 mm right cavernous ICA saccular aneurysm - follow up with neuroendovascular OP # chronic Afib- c/w lopressor for rate control and lovenox for stroke prevention # right shoulder pain- suspect 2/2 arthritis Xray ordered today- shows intramedullary raad with no evidence of hardware loosening. Diffuse osteopenia Will order lidocaine patch. No signs of infection May need ortho referral if not improving #Bilateral hydronephrosis Indeterminate L renal lesion -cont ceballos per urology recs, call urology close to discharge for void trial Constipation -resolved GERD -PPI daily COPD Prior smoker -Not currently on oxygen Plan for acute rehab at [place] [facility] able to accept. Await precert Plan of care discussed with: Provider, RN, Patient. SIGNATURE: Era Telles MD PATIENT NAME: Mel Castillo DATE: June 14, 2024 TIME: 2:47 PM PAGER: [facility] 06-13-2024 Note HNO ID: [id number] Author: EDIE CASTAÑEDA MD Service: Hospital Medicine Author Type: Physician Type: Progress Notes Filed: 06/13/2024 14:18 Note Text: DEPARTMENT OF HOSPITAL MEDICINE Hospital Medicine/Primary Attending: Edie Castañeda MD NIGHT AND WEEKEND COVERAGE: After 7pm please page [phone] MEDICATIONS: Current Facility-Administered Medications Medication Dose Route Frequency lisinopril 5 mg tab(s) (ZESTRIL) 5 mg ORAL DAILY pantoprazole DR 40 mg tab(s) (PROTONIX) 40 mg ORAL DAILY (6 AM) NaCl 0.9% iv flush bag 20 mL INTRAVENOUS PRN atorvastatin 80 mg tab(s) (LIPITOR) 80 mg ORAL/FEEDING TUBE AT BEDTIME acetaminophen 650 mg tab(s) (TYLENOL) 650 mg ORAL/FEEDING TUBE q 4 H PRN sodium chloride 0.9 % (flush) 2-10 mL (BD POSIFLUSH) 2-10 mL INTRAVENOUS DIRECTED PRN And perflutren lipid microspheres 1.1 mg/mL 1.3 mL injection (DEFINITY) 1.3 mL INTRAVENOUS DIRECTED PRN ondansetron (PF) 4 mg injection (ZOFRAN) 4 mg INTRAVENOUS q 6 H PRN heparin iv infusion 25,000 units in NaCl 0.45% 250 mL STROKE NOMOGRAM 0-3,000 Units/hr INTRAVENOUS CONTINUOUS metoprolol tartrate (short acting) 12.5 mg tab(s) (LOPRESSOR) 12.5 mg ORAL q 12 H enoxaparin 70 mg injection (LOVENOX) 1 mg/kg/dose SUBCUTANEOUS q 12 HR DATA: Diagnostic tests reviewed for today's visit: Lab data: CBC: Recent Labs 06/13/24 0137 06/12/24 0351 06/11/24 1353 06/10/24 2330 WBC 4.79 5.17 7.45 5.67 HB 10.2* 10.6* 11.5 11.4* HCT 33.1* 34.6* 37.6 37.5 PLT 287 314 329 330 MCV 86.0 85.6 87.0 86.2 RDWCV 15.5* 15.6* 15.6* 15.6* NEUTP -- 57.4 72.9 84.2 ABSNEUT -- 2.97 5.43 4.78 LYMPHP -- 31.9 16.9 10.8 MONOP -- 8.9 9.1 3.7 EODINP -- 1.0 0.3 0.2 COAG: Recent Labs 06/13/24 0825 06/13/24 0137 06/12/24 1903 06/12/24 1156 06/12/24 0450 06/12/24 03506/11/24202106/11/24 1353 06/10/242329 APTT 51.3* 89.0* 56.1* 79.0* 123.9* 117.3* 28.2 28.9 -- INR -- -- -- -- -- -- -- 1.2 1.3 BMP: Recent Labs 06/13/2413606/12/2435006/10/242329 GLUC 95 109* 157* NA 136 137 136 K 3.8 4.0 4.3 CHLOR 101 101 101 CO2 23 ANION 11 13 12 BUN 16 12 14 CREAT 1.04* 1.02* 0.87 CHEM: Recent Labs 06/13/2413606/12/2435006/10/242329 ALB -- 3.6* 4.2 TPROT -- 6.4 7.1 CA 8.9 9.2 9.5 MG -- 2.3 -- HEPATIC: Recent Labs 06/12/2435006/10/242329 ALKPHOS 88 99 ALT 6* 8 AST 9* 12* TBILI 0.6 0.4 URINALYSIS: Recent Labs 06/11/24 0533 SPGR 1.039* UGLUC Negative UBILI Negative UKET Negative UHB Trace UPROT 1+* UWBC 0-5 /HPF CARDIAC: No results for input(s): "PBNP" in the last 168 hours. 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 O2 Therapy: Room Air Follow up : Pt seen and examined. She reports right arm/shoulder pain and dizziness/vertigo with head movements and sitting up. She called her daughter in a panic this morning stating she was ready to "give up" but she is feeling better now. Tolerating diet. No BM in several days. Constitutional - Vitals as above, NAD Respiratory - Clear to auscultate both sides. 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 who is on warfarin for A-fib with subtherapeutic INR presenting with dizziness, vomiting, admitted for CVA. Found to have multiple sites of stroke on MRI but no large vessel cerebrovascular disease. Echo EF 60% large left atrial somewhat mobile mass does not appear to be a thrombus crossing the interatrial septum. Patient sees Dr. Padilla at [facility]. Cardiology saw patient in hospital, recommended Lovenox at discharge for lifelong. 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 Continue heparin drip. Will transition to therapeutic lovenox tonight (discussed patel and affordability with patient, lin (more content not included)... [facility] 06-13-2024 Note HNO ID: [id number] Author: CARLYLE GUZMÁN, RN Service: Care Management Author Type: Registered Nurse Type: Care Mgt Progress Note Filed: 06/13/2024 13:00 Note Text: CARE MANAGEMENT PROGRESS NOTE SERVICE DATE: 06/13/2024 SERVICE TIME: 12:54 PM LOS: 2 days Needs Prior to Discharge: To Be Determined;Precertification;Discha rge Transportation Chart reviewed. HCPOA paperwork sent to admitting and copy placed in patient's chart. Spoke with the patient and CHERYL Stokes about accepting facilities. [facility]. Precert started for [facility]. Cot transport is on standby. Will to continue to follow for transitional care planning. SIGNATURE: Carlyle Guzmán RN PATIENT NAME: Mel Castillo DATE: June 13, 2024 TIME: 12:54 PM PAGER/CONTACT #: [phone] [facility] 06-12-2024 Note HNO ID: [id number] Author: SHARONA MCDERMOTT MD Service: Hospital Medicine Author Type: Physician Type: Progress Notes Filed: 06/12/2024 17:08 Note Text: DEPARTMENT OF HOSPITAL MEDICINE Hospital Medicine/Primary Attending: Sharona Mcdermott MD NIGHT AND WEEKEND COVERAGE: After 7pm please page [phone] Saw patient at bedside with friend visiting. Continues to have dizziness with head movement. Confirmed that she does not wanted to further workup with cardiac mass. Discussed about Lovenox. MEDICATIONS: Current Facility-Administered Medications Medication Dose Route Frequency lisinopril 5 mg tab(s) (ZESTRIL) 5 mg ORAL DAILY pantoprazole DR 40 mg tab(s) (PROTONIX) 40 mg ORAL DAILY (6 AM) NaCl 0.9% iv flush bag 20 mL INTRAVENOUS PRN atorvastatin 80 mg tab(s) (LIPITOR) 80 mg ORAL/FEEDING TUBE AT BEDTIME acetaminophen 650 mg tab(s) (TYLENOL) 650 mg ORAL/FEEDING TUBE q 4 H PRN sodium chloride 0.9 % (flush) 2-10 mL (BD POSIFLUSH) 2-10 mL INTRAVENOUS DIRECTED PRN And perflutren lipid microspheres 1.1 mg/mL 1.3 mL injection (DEFINITY) 1.3 mL INTRAVENOUS DIRECTED PRN ondansetron (PF) 4 mg injection (ZOFRAN) 4 mg INTRAVENOUS q 6 H PRN heparin iv infusion 25,000 units in NaCl 0.45% 250 mL STROKE NOMOGRAM 0-3,000 Units/hr INTRAVENOUS CONTINUOUS metoprolol tartrate (short acting) 12.5 mg tab(s) (LOPRESSOR) 12.5 mg ORAL q 12 H DATA: Diagnostic tests reviewed for today's visit: Lab data: CBC: Recent Labs 06/12/24 0351 06/11/24 1353 06/10/24 2330 WBC 5.17 7.45 5.67 HB 10.6* 11.5 11.4* HCT 34.6* 37.6 37.5 PLT 314 329 330 MCV 85.6 87.0 86.2 RDWCV 15.6* 15.6* 15.6* NEUTP 57.4 72.9 84.2 ABSNEUT 2.97 5.43 4.78 LYMPHP 31.9 16.9 10.8 MONOP 8.9 9.1 3.7 EODINP 1.0 0.3 0.2 COAG: Recent Labs 06/12/24 1156 06/12/24 0450 06/12/24 0351 06/11/24202106/11/24 1353 06/10/24 233 APTT 79.0* 123.9* 117.3* 28.2 28.9 -- INR -- -- -- -- 1.2 1.3 BMP: Recent Labs 06/12/24 03506/10/24 233 GLUC 109* 157* NA 137 136 K 4.0 4.3 CHLOR 101 101 CO2 23 23 ANION 13 12 BUN 12 14 CREAT 1.02* 0.87 CHEM: Recent Labs 06/12/24 0351 06/10/24 2330 ALB 3.6* 4.2 TPROT 6.4 7.1 CA 9.2 9.5 MG 2.3 -- HEPATIC: Recent Labs 06/12/24 0351 06/10/24 233 ALKPHOS 88 99 ALT 6* 8 AST 9* 12* TBILI 0.6 0.4 URINALYSIS: Recent Labs 06/11/24 0533 SPGR 1.039* UGLUC Negative UBILI Negative UKET Negative UHB Trace UPROT 1+* UWBC 0-5 /HPF CARDIAC: No results for input(s): "PBNP" in the last 168 hours. 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 O2 Therapy: Room Air Follow up : Pt seen and examined. Constitutional - Vitals as above, NAD Respiratory - Clear to auscultate both sides. 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 who is on warfarin for A-fib with subtherapeutic INR presenting with dizziness, vomiting, admitted for CVA. Found to have multiple sites of stroke on MRI but no large vessel cerebrovascular disease. Echo EF 60% large left atrial somewhat mobile mass does not appear to be a thrombus crossing the interatrial septum. Patient sees Dr. Padilla at [facility]. Cardiology saw patient in hospital, recommended Lovenox at discharge for lifelong. Further discussion can be made with her regular cardiology. Acute embolic stroke Cardioembolic in nature. Neurocheck every 4 hours. Goal SBP less than 180 (on lisinopril 5 mg daily, Lopressor 12.5 mg twice daily) Blood pressure is fluctuating. Can consider increasing dose on lisinopril if persistently elevated. On heparin drip currently. Continue with atorvastatin 80 mg nightly Can consider malignancy/hypercoagulability workup. PT, OT, speech Chronic A-fib Longstanding Rate control Continue with metoprolol 12.5 mg twice daily. Currently on heparin by weight drip Right cavernous ICA saccular aneurysm Outpatient follow-up with neuroendovascular Severe PAD-atorvastatin COPD Smoker Not (more content not included)... [facility] 06-12-2024 Note HNO ID: [id number] Author: DEBORAH PEACE RN Service: Care Management Author Type: Registered Nurse Type: Care Mgt Progress Note Filed: 06/12/2024 16:10 Note Text: CARE MANAGEMENT PROGRESS NOTE SERVICE DATE: 06/12/2024 SERVICE TIME: 4:09 PM LOS: 1 day Goodrich of Choice Given: Yes Level of Care Discussed: Inpatient Rehab Facility Financial Disclosure Provided: Yes Provider List: Rehab Facility Provider list within the patient's requested geographic area shared with the patient/family: Yes within: 15 miles of zip code: [address] Quality and resource use metrics shared with the patient that are relevant to the patient's goals of care and treatment preferences:: Yes Spoke with pt about pt/ot recs for acute rehab, pt agreeable to list , [facility] foc but pt would like to discuss acute rehab with her ; referral sent to [facility] SIGNATURE: Deborah Peace RN PATIENT NAME: Mel Castillo DATE: June 12, 2024 TIME: 4:09 PM PAGER/CONTACT #: [phone] [facility] 06-12-2024 Note HNO ID: [id number] Author: ANDREEA KING LSW Service: Care Management Author Type: Grinding Wheel Facer Type: Care Mgt Progress Note Filed: 06/12/2024 15:25 Note Text: CARE MANAGEMENT PROGRESS NOTE SERVICE DATE: 06/12/2024 SERVICE TIME: 3:20 PM LOS: 1 day SW Consult GERIATRIC DEPRESSION SCREEN 1. Are you basically satisfied with your life? Yes 2. Have you dropped many of your activities and interests? No 3. Do you feel that your life is empty? No 4. Do you often get bored? No 5. Are you in good spirits most of the time? Yes 6. Are you afraid that something bad is going to happen to you? Yes (1 point) 7 Do you feel happy most of the time? Yes 8 Do you often feel helpless? No 9. Do you prefer to stay home, rather than going out and doing new things? No 10. Do you feel that you have more problems with memory than most? Yes (1 point) 11. Do you think it is wonderful to be alive now? Yes 12. Do you feel worthless the way you are now? No 13. Do you feel full of energy? No (1 point) 14. Do you feel that your situation is hopeless? No 15. Do you think that most people are better off than you are? No Total Score: 3 Scores greater than 5 indicate probably depression Score Result 0-4 No Depression 5-10 Suggestive of Mild Depression 11+ Suggestive of Severe Depression SW met with pt at bedside to complete stroke depression screen. Pt scored a 3. SW educated pt on post stroke emotions and provided pt with stroke handout. SIGNATURE: SHAQUILLE Kaye PATIENT NAME: Mel Castillo DATE: June 12, 2024 TIME: 3:20 PM PAGER/CONTACT #: [phone] [facility] 06-11-2024 Note HNO ID: [id number] Author: CARLYLE GUZMÁN RN Service: Care Management Author Type: Registered Nurse Type: Care Mgt Initial Assessment Filed: 06/11/2024 15:43 Note Text: CARE MANAGEMENT: ASSESSMENT AND DISCHARGE PLAN SERVICE DATE: June 11, 2024 SERVICE TIME: 3:41 PM PCP: Jared Evans MD, MD Primary Contact: Extended Emergency Contact Information Primary Emergency Contact: Davide Castillo Mobile Relation: Son Secondary Emergency Contact: Nicolas Castillo Mobile Relation: Son Admission Status: Observation Insurance Provider: [employer] MEDICARE PPO Discharge Planning requested by: Per Department Practice Potential Transition Plans Home Advance Directives Current Advance Directive: None Employee Benefits Administrator Attempted to Assist with AD Completion: Yes Action: Education Provided Current Living Arrangements and Support Lives with: Alone Type of Residence: Private Residence (Apartment or Condo) Does the patient have to climb stairs at home?: Yes;stairs outside the home Support: Family members How do you manage to accomplish the following: Independent: Ambulation;Bathe/Shower;Dress;Meal s/Meal Prep;Going to the bathroom;Medication Management Needs Assistance: Transportation to appointments/community Current Services/Equipment Current Post-Acute Service(s): DME Current DME Type: Cane, Walker, Other: See Comment (life alert) Discharge Planning Patient Goal(s): General wellness, Be able to go home Goodrich of Choice Explained: Goodrich of Choice Given: No Reason Not Given: No placements necessary Are you interested in bedside delivery of your medications? No Discharge Planning Participant(s): Family;Patient Patient/Family Comments: questions answered Caregiver Assessment: Caregiver is ready, willing and able to meet the patient's needs as recommended by the inter-professional team: Yes Name of Caregiver: home with family Transport at Discharge: Transportation Arrangements: Car Destination: home Needs Prior to Discharge: Needs Prior to Discharge: To Be Determined Post-Acute Discharge Plan: Patient admitted from home due to dizziness. Spoke to the patient and family who said she was mostly IND MANAGER DIGITAL AD OPERATIONS and does not endorse any skilled needs at this time. +PCP, +DME, +RX coverage, family to provide DC transportation. Will to continue to follow for transitional care planning. SIGNATURE: Carlyle Guzmán RN PATIENT NAME: Mel Castillo DATE: June 11, 2024 TIME: 3:41 PM CONTACT #: [phone] [facility] 06-11-2024 Note Spoke with Melany Evans's office and she stated that patient is scheduled in their office tomorrow, 06/12 for INR check. I faxed her out last progress note. I will inactivate patient from our service. [facility] 05-21-2024 History of Present illness Narrative INR reported on by Christin with [facility]. Christin can be reached at [phone] with questions. Images from the original note were not included. [facility] Anticoagulation Management Service ([facility]) Anticoagulation Clinic [address], [address], [place] [address] Subjective TYSON Choi (1940) had INR completed by homecare, visit was completed by phone, audio only. Diagnoses of Atrial fibrillation, unspecified type (HCC) and Acute venous embolism and thrombosis of deep vessels of proximal end of right lower extremity (HCC) were pertinent to this visit. and has a goal INR 2.0-3.0. Pt has Coumadin 5mg tablets and at last visit was instructed to take 5mg daily. Pt confirms taking this dose and adherence to current regimen: yes Any changes in prescriptions, OTC, and/or herbal medications: no Changes in alcohol, tobacco, or marijuana use: no Any recent hospitalizations or ED visits: no Any recent falls or head trauma: no Any changes in diet (vit K): no Upcoming surgeries or procedure: no Does pt need refills on warfarin prescription: no Review of Systems Constitutional: Negative for activity change, appetite change and fatigue. HENT: Negative for nosebleeds. Respiratory: Negative for shortness of breath. Cardiovascular: Negative for chest pain and leg swelling. Gastrointestinal: Negative for blood in stool, diarrhea, nausea and vomiting. Genitourinary: Negative for hematuria. Neurological: Negative for weakness, light-headedness and headaches. Hematological: Does not bruise/bleed easily. Assessment Lab Results Component Value Date INR 2.8 (A) 05/21/2024 INR 2.7 (A) 05/09/2024 INR 2.7 (A) 05/01/2024 INR 2.9 (A) 04/27/2024 INR 3.3 (A) 04/23/2024 Plan INR is therapeutic at 2.8. Dosinmg daily Next INR Check: 06/04/2024 Patient educated on the following: N/A Patient care coordination completed: Reviewed other office notes Patient given verbal instructions. Patient expressed understanding utilizing the teach back method. Time spent 10 Minutes Faye Castillo with L[facility] PharmD, BCACP, CACP documented in this encounter [facility] 05-09-2024 History of Present illness Narrative Graciela from [facility] called in results. Images from the original note were not included. [facility] Anticoagulation Management Service ([facility]) Anticoagulation Clinic [address] [place] [address], [address], [place] [phone] Megan Choi (1940) had INR completed by homecare, visit was completed by phone- audio only. Diagnoses of Atrial fibrillation, unspecified type (HCC) and Acute venous embolism and thrombosis of deep vessels of proximal end of right lower extremity (HCC) were pertinent to this visit. and has a goal INR 2.0-3.0. Pt has Coumadin 5mg tablets and at last visit was instructed to take 5 mg daily. Pt confirms taking this dose and adherence to current regimen. Any medication changes: no Any changes in diet (vit K), alcohol, or tobacco: no Any falls or head trauma: no Any bleeding: no Any SOB, chest pain, swelling: yes, always has SOB but not bad Any upcoming surgeries or procedures: yes, Echo on 05-14 Any other changes or concerns: yes, dizzy and lightheaded when she first gets up. She gets up too fast. Therapist is working with her on that. Refills needed: no Review of Systems Assessment Lab Results Component Value Date INR 2.7 (A) 05/09/2024 INR 2.7 (A) 05/01/2024 INR 2.9 (A) 04/27/2024 INR 3.3 (A) 04/23/2024 INR 2.1 (A) 04/19/2024 Plan Dosing as below: Continue taking 5 mg daily Next INR Check: 05-22-24 Patient educated on the following: medication adherence Positive ROS findings are: n/a, no positive findings Mel was instructed to notify [facility] of any unusual bruising or active/uncontrollable bleeding, medication changes within 24 hours, missed doses, dietary changes, illnesses or hospitalizations, and upcoming surgeries. Patient given verbal instructions. Patient expressed understanding utilizing the teach back method. Time spent 10 Minutes JOSE ANGEL Perez, PharmD, BCPS documented in this encounter [facility] 05-01-2024 History of Present illness Narrative Tia- [facility]- [phone] Images from the original note were not included. [facility] Anticoagulation Management Service ([facility]) Anticoagulation Clinic [address] [place] [address], [address] [place] [address] Subjective HPI Mel (1940) had INR completed by homecare, visit was completed by phone, audio only. Diagnoses of Atrial fibrillation, unspecified type (HCC) and Acute venous embolism and thrombosis of deep vessels of proximal end of right lower extremity (HCC) were pertinent to this visit. and has a goal INR 2.0-3.0. Pt has Coumadin 5mg tablets and at last visit was instructed to continue 5 mg daily for the next 4 days . Pt confirms taking this dose and adherence to current regimen: yes Any changes in prescriptions, OTC, and/or herbal medications: no Changes in alcohol, tobacco, or marijuana use: no Any recent hospitalizations or ED visits: no Any recent falls or head trauma: no Any changes in diet (vit K): no Upcoming surgeries or procedure: no Does pt need refills on warfarin prescription: no Review of Systems Assessment Lab Results Component Value Date INR 2.7 (A) 05/01/2024 INR 2.9 (A) 04/27/2024 INR 3.3 (A) 04/23/2024 INR 2.1 (A) 04/19/2024 INR 4.7 (A) 04/16/2024 Plan INR is therapeutic Dosing: continue 5 mg daily Next INR Check: 05/08/2024 [facility] Patient educated on the following: dietary/lifestyle considerations and Vitamin K content and consistency Patient care coordination completed: N/A Patient given verbal instructions. Patient expressed understanding utilizing the teach back method. Time spent 10 Minutes Won Tipton RN staffed with Chalino Tolbert, BCACP, CACP documented in this encounter [facility] 04-27-2024 Telephone encounter Note Pt requested refill on warfarin 5mg. Sent to [facility]. Receipt confirmed by pharmacy. [facility] 04-27-2024 Miscellaneous Notes Pt requested refill on warfarin 5mg. Sent to [facility]. Receipt confirmed by pharmacy. documented in this encounter [facility] 04-25-2024 History of Present illness Narrative Vascular Surgery Office Visit Chief Complaint Patient presents with Follow-up 1st follow up RLE mechanical thrombectomy 04/06/24 (Krzysztof) HISTORY OF PRESENT ILLNESS: The patient is a 83 y.o. female who returns for follow-up for RLE mechanical venous thrombectomy with Dr. Blankenship on 04/06/24. Patient states overall her RLE has been doing well since surgery. She notes edema has improved and denies any significant pain. She is following with [facility] clinic for Warfarin, switched from Eliquis. She denies any hematuria, melena, hematochezia, or epistaxis. She states when she walks longer distances bilateral thighs will begin to ache. She states this is not new and she has worked with PT. She denies rest pain or wounds. MICHELLE in hospital were 0.55 on right and 0.62 on left. Past Medical History: Past Medical History: Diagnosis Date Asthma Essential hypertension 03/07/2020 GERD (gastroesophageal reflux disease) Hiatal hernia Pure hypercholesterolemia 03/07/2020 Stroke (HCC) Past Surgical History: Past Surgical History: Procedure Laterality Date 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 Authorizing Provider albuterol 108 (90 Base) MCG/ACT inhaler inhale 1 puff by mouth and INTO THE LUNGS every 6 hours if needed for shortness of breath 02/17/23 Historical Provider, ascorbic acid (Vitamin C) 500 MG tablet Take 500 mg by mouth in the morning and 500 mg at noon and 500 mg in the evening. 06/28/22 Historical Provider, furosemide (Lasix) 40 MG tablet TAKE 1 TABLET BY MOUTH EVERY DAY NEEDED SWELLING 04/20/24 Historical Provider, lisinopril 5 MG tablet Take 5 mg by mouth in the morning. 05/26/22 Historical Provider, metoprolol tartrate (Lopressor) 25 MG tablet Take 25 mg by mouth in the morning and 25 mg in the evening. Take with meals. Take with food.. 03/12/24 Historical Provider, oxyCODONE (Roxicodone) 5 MG immediate release tablet Take 1 tablet (5 mg) by mouth every 6 hours as needed for severe pain (7-10) for up to 5 days. 04/13/24 04/18/24 Jordin Roldan MD pantoprazole (ProtoNix) 40 MG EC tablet 07/18/23 Historical Provider, MD Flores Ellipta 100-62.5-25 MCG/ACT aerosol powder 05/19/23 Historical Provider, warfarin (Coumadin) 5 MG tablet Take 1 tablet (5mg) on 04/13 in the evening Take 1.5 tablets (7.5mg) on 04/14 Take 1 tablet (5mg) on 04/15 Follow up with [facility] pharmacy for further dosing 04/13/24 Jordin Roldan MD Allergies: Advair hfa [fluticasone-salmeterol], Amoxicillin, and Percocet [oxycodone-acetaminophen] Social History Socioeconomic History Marital status: Spouse name: Not on file Number of children: Not on file Years of education: Not on file Highest education level: Not on file Occupational History Not on file Tobacco Use Smoking status: Former Current packs/day: 0.50 Types: Cigarettes Smokeless tobacco: Never Substance and Sexual Activity Alcohol use: Yes Alcohol/week: 1.0 standard drink of alcohol Types: 1 Cans of beer per week Drug use: Never Sexual activity: Not on file Other Topics Concern Not on file Social History Narrative Not on file Social Determinants of Health Financial Resource Strain: Low Risk (04/04/2024) Overall Financial Resource Strain (CARDIA) Difficulty of Paying Living Expenses: Not very hard Food Insecurity: No Food Insecurity (04/04/2024) Hunger Vital Sign Worried About Running Out of Food in the Last Year: Never true Ran Out of Food in the Last Year: Never true Transportation Needs: No Transportation Needs (04/04/2024) PRAPARE - Transportation Lack of Transportation (Medical): No Lack of Transportation (Non-Medical): No Physical Activity: Inactive (04/04/2024) Exercise Vital Sign Days of Exercise per Week: 0 days Minutes of Exercise per Session: 0 min Stress: No Stress Concern Present (04/04/2024) [employer] - Occupational Stress Questionnaire Feeling of Stress : Not at all Social Connections: Moderately Isolated (04/04/2024) Social Connection and Isolation Panel [NHANES] Frequency of Communication with Friends and Family: More than three times a week Frequency of Social Gatherings with Friends and Family: More than three times a week Attends [employer] Services: 1 to 4 times per year Active Member of Clubs or Organizations: No Attends Club or Organization Meetings: Never Marital Status: Intimate Partner Violence: Not At Risk (04/04/2024) Humiliation, Afraid, Rape, and Kick questionnaire Fear of Current or Ex-Partner: No Emotionally Abused: No Physically Abused: No Sexually Abused: No Housing Stability: Low Risk (04/05/2024) Housing Stability Vital Sign Unable to Pay for Housing in the Last Year: No Number of Times Moved in the Last Year: 0 Homeless in the Last Year: No No family history on file. Review of Systems Constitutional: Negative. HENT: Negative. Eyes: Positive for visual disturbance (blind left eye). Cardiovascular: Negative. Gastrointestinal: Negative. Endocrine: Negative. Genitourinary: Negative. Musculoskeletal: Positive for gait problem (states she doesnt have a good balance and starting PT soon). Skin: Negative. Allergic/Immunologic: Negative. Hematological: Negative. Psychiatric/Behavioral: Negative. LABS: Lab Results Component Value Date CREATININE 1.00 04/13/2024 Lab Results Component Value Date WBC 4.2 04/13/2024 HGB 8.6 (L) 04/13/2024 HCT 26.3 (L) 04/13/2024 MCV 91.0 04/13/2024 PLT 317 04/13/2024 Lab Results Component Value Date INR 3.3 (A) 04/23/2024 INR 2.1 (A) 04/19/2024 INR 4.7 (A) 04/16/2024 PROTIME 40.1 (A) 04/23/2024 PROTIME 24.9 (A) 04/19/2024 PROTIME 56.1 (A) 04/16/2024 No results found for: "VLDL" Physical Exam Vitals reviewed. Constitutional: Appearance: Normal appearance. HENT: Head: Normocephalic and atraumatic. Eyes: Extraocular Movements: Extraocular movements intact. Neck: Vascular: No carotid bruit. Cardiovascular: Rate and Rhythm: Normal rate and regular rhythm. Pulses: Radial pulses are 2+ on the right side and 2+ on the left side. Dorsalis pedis pulses are 0 on the right side and 0 on the left side. Posterior tibial pulses are 0 on the right side and 0 on the left side. Comments: No tenderness to palpation of lower legs bilaterally. Chronic skin changes to lower extrmities noted. No erythema surrounding varicosities. Multiple telangiectasias noted around ankles bilaterally. Knee puncture site healed. Pulmonary: Effort: Pulmonary effort is normal. Abdominal: General: Abdomen is flat. Bowel sounds are normal. Palpations: Abdomen is soft. Musculoskeletal: Cervical back: Normal range of motion. Right lower leg: Edema present. Left lower le+ Edema present. Feet: Right foot: Skin integrity: Skin integrity normal. Left foot: Skin integrity: Skin integrity normal. Skin: General: Skin is warm and dry. Neurological: General: No focal deficit present. Mental Status: She is alert and oriented to person, place, and time. GCS: GCS eye subscore is 4. GCS verbal subscore is 5. GCS motor subscore is 6. Sensory: Sensation is intact. Motor: Motor function is intact. Psychiatric: Mood and Affect: Mood normal. Behavior: Behavior normal. Thought Content: Thought content normal. Judgment: Judgment normal. IMPRESSION/RECOMMENDATIONS: Problem List Items Addressed This Visit None Visit Diagnoses Acute deep vein thrombosis (DVT) of iliac vein of right lower extremity (HCC) - Primary PAD (peripheral artery disease) ([facility]) Plan: S/p right venous thrombectomy -Recovering well -Recommend continuing warfarin per [facility] clinic -Continue to elevate as needed. -Discussed signs and symptoms to monitor for. PAD -Went over ABIs with patient -Discussed moderate disease bilaterally. -She has claudication, no limb threatening symptoms -Discussed options of starting ASA and statin -Will plan to have her follow up in 3 months to discuss PAD symptoms. Follow up in about 3 months (around 07/26/2024). . documented in this encounter [facility] 04-19-2024 History of Present illness Narrative Graciela with [facility] reports INR on Graciela can be reached at [phone] with any questions. Images from the original note were not included. [facility] Anticoagulation Management Service ([facility]) Anticoagulation Clinic [address] [place] [address], [address], [place] [phone] Subjective TYSON Choi (1940) had INR completed by homecare, visit was completed by phone- audio only. Diagnoses of Atrial fibrillation, unspecified type (HCC) and Acute venous embolism and thrombosis of deep vessels of proximal end of right lower extremity (HCC) were pertinent to this visit. and has a goal INR 2.0-3.0. Pt has Coumadin 5mg tablets and at last visit was instructed to hold x 1 then 5 mg daily. Pt confirms taking this dose and adherence to current regimen. Any medication changes: no Any changes in diet (vit K), alcohol, or tobacco: yes, still drinking green tea daily. She has only had a couple cigarettes since coming home from the hospital. She stated that she only has 2 left and she will probably use one tomorrow and one on Tuesday and then she is not buying anymore ("she feels too good"). Any falls or head trauma: no Any bleeding: no Any SOB, chest pain, swelling: yes, some SOB but uses her Trilogy and then she's fine Any upcoming surgeries or procedures: no Any other changes or concerns: no Refills needed: no Review of Systems Assessment Lab Results Component Value Date INR 2.1 (A) 04/19/2024 INR 4.7 (A) 04/16/2024 INR 2.3 (H) 04/13/2024 INR 1.9 (H) 04/12/2024 INR 1.9 (H) 04/11/2024 Plan Dosing as below: Take 7.5 mg today and Tuesday and 5 mg on Tuesday and Tuesday Next INR Check: 04-23-24 Patient educated on the following: medication adherence and Vitamin K content and consistency Positive ROS findings are: n/a, no positive findings Mel was instructed to notify [facility] of any unusual bruising or active/uncontrollable bleeding, medication changes within 24 hours, missed doses, dietary changes, illnesses or hospitalizations, and upcoming surgeries. Patient given verbal instructions. Patient expressed understanding utilizing the teach back method. Time spent 15 Minutes JOSE ANGEL Perez, PharmD, BCPS documented in this encounter [facility] 04-14-2024 History of Present illness Narrative Placed new order for POCT INR, [facility] had not received. documented in this encounter [facility] 04-14-2024 Miscellaneous Notes Addended by: PATTY DUGGAN on: 04/16/2024 07:01 AM Modules accepted: Orders Addended by: HARMONY GREY on: 04/16/2024 08:41 AM Modules accepted: Orders documented in this encounter [facility] 04-14-2024 Note Addended by: PATTY DUGGAN on: 04/16/2024 07:01 AM Modules accepted: Orders [facility] 04-14-2024 Note Addended by: HARMONY GREY on: 04/16/2024 08:41 AM Modules accepted: Orders [facility] 04-14-2024 Note Addended by: PATTY DUGGAN on: 04/16/2024 07:01 AM Modules accepted: Orders [facility] 04-14-2024 Note Addended by: HARMONY GREY on: 04/16/2024 08:41 AM Modules accepted: Orders [facility] 04-14-2024 Note Addended by: PATTY DUGGAN on: 04/16/2024 07:01 AM Modules accepted: [facility] 04-14-2024 Note Addended by: HARMONY GREY on: 04/16/2024 08:41 AM Modules accepted: [facility] 04-13-2024 Nurse Note AVS explained. Discharged patient on stable condition. [facility] 04-13-2024 Nurse Note AVS explained. Discharged patient on stable condition. Instructed patient on warfarin dosing, she will take 7.5mg tomorrow, and 5mg Tuesday, and then we will check INR with home care on Tuesday as instructed. NO changes to heparin infusion at this time. documented in this encounter [facility] 04-13-2024 Nurse Note Instructed patient on warfarin dosing, she will take 7.5mg tomorrow, and 5mg Tuesday, and then we will check INR with home care on Tuesday as instructed. [facility] 04-13-2024 Note Formatting of this n ote might be different from the original. Phone conversation with the patient at their request from the [facility] regarding her established home care. Patient was wondering what services were being provided and what expectations to have for [facility]. I explained her current ordered services and she stated she understood. Patient then asked if she could have meals delivered. I explained I would reach out to her social security benefits interviewer here at the hospital for further guidance on resources when she gets home. Secure chat sent to KEESHA Kateil regarding this. [facility] 04-13-2024 Note Formatting of this n ote might be different from the original. Phone conversation with the patient at their request from the [facility] regarding her established home care. Patient was wondering what services were being provided and what expectations to have for HHC. I explained her current ordered services and she stated she understood. Patient then asked if she could have meals delivered. I explained I would reach out to her social security benefits interviewer here at the hospital for further guidance on resources when she gets home. Secure chat sent to KEESHA Kateil regarding this. [facility] 04-13-2024 Miscellaneous Notes Phone conversation with the patient at their request from the [facility] regarding her established home care. Patient was wondering what services were being provided and what expectations to have for HHC. I explained her current ordered services and she stated she understood. Patient then asked if she could have meals delivered. I explained I would reach out to her social security benefits interviewer here at the hospital for further guidance on resources when she gets home. Secure chat sent to KEESHA Kateil regarding this. Images from the original note were not included. Care Management Progress Note INR 2.3 today. Hep drip continued, plan to DC to [facility] today. Plan to have PT seen patient today per her request. Patient is active with [facility]. Await treatment plan and clinical progress. trust manager will continue to follow for transitional care needs and discharge planning. Discharge Milestones and Delays Expected date/time: 04/13/2024 Expected discharge disposition: Home Health Services Discharge Milestones Place discharge order Complete med reconciliation Case mgmt discharge readiness Clinical Stability Diagnostic Workup Facility Choice Selection Imaging Results Patient Education Complete Expected Discharge History Expected Date/Time Set By Reviewed At 04/13/2024 Cathi Avila RN 04/13/2024 8:23 AM hep gtt- transitioning to coumadin, INR 2.3" 04/13/2024 Cathi Avila RN 04/12/2024 8:02 AM hep gtt- transitioning to coumadin, INR 1.9" 04/11/2024 Cathi Avila RN 04/11/2024 8:03 AM 04/11/2024 Cathi Avila RN 04/10/2024 8:41 AM hep gtt- transitioning to coumadin" 04/10/2024 Virginia Rehman RN 04/09/2024 8:13 AM 04/08/2024 Virginia Rehman RN 04/06/2024 8:13 AM hep gtt, poss thrombectomy 04/07/2024 Virginia Rehman RN 04/05/2024 8:03 AM hep gtt, poss thrombectomy tomorrow" 04/06/2024 Virginia Rehman RN 04/04/2024 8:48 AM hep gtt, oliva lower US, vasc consult" 04/06/2024 SEBASTIAN Herrera CNP 04/04/2024 4:04 AM 04/06/2024 SEBASTIAN Herrera CNP 04/03/2024 11:17 PM Length of Stay (Days): 10 GMLOS: 4 The patient is Moderately Stable - Low risk of patient condition declining or worsening The patient's goals for the shift include pain control/rest The clinical goals for the shift include hemodynamic stability Problem: Pain - Adult Goal: Verbalizes/displays adequate comfort level or baseline comfort level Outcome: Progressing Problem: Safety - Adult Goal: Free from fall injury Outcome: Progressing Problem: Chronic Conditions and Co-morbidities Goal: Patient's chronic conditions and co-morbidity symptoms are monitored and maintained or improved Outcome: Progressing Problem: Knowledge Deficit Goal: Patient/family/caregiver demonstrates understanding of disease process, treatment plan, medications, and discharge instructions Outcome: Progressing Problem: Pain - Adult Goal: Verbalizes/displays adequate comfort level or baseline comfort level Outcome: Progressing Problem: Safety - Adult Goal: Free from fall injury Outcome: Progressing Problem: Discharge Planning Goal: Discharge to home or other facility with appropriate resources Outcome: Progressing Problem: Chronic Conditions and Co-morbidities Goal: Patient's chronic conditions and co-morbidity symptoms are monitored and maintained or improved Outcome: Progressing Problem: Knowledge Deficit Goal: Patient/family/caregiver demonstrates understanding of disease process, treatment plan, medications, and discharge instructions Outcome: Progressing Problem: Potential for Compromised Skin Integrity Goal: Skin Integrity is Maintained or Improved Outcome: Progressing Goal: Nutritional status is improving Outcome: Progressing Problem: Urinary Incontinence Goal: Perineal skin integrity is maintained or improved Outcome: Progressing The patient is Moderately Stable - Low risk of patient condition declining or worsening Images from the original note were not included. Care Management Progress Note Patent currently still on Hep Drip, INR 1.9. Will convert to oral when appropriate. Pt active with inna GABRIEL- will continue services at discharge. Await treatment plan and clinical progress. trust manager will continue to follow for transitional care needs for discharge planning. Discharge Milestones and Delays Expected date/time: 04/13/2024 Expected discharge disposition: Home Health Services Discharge Milestones Place discharge order Complete med reconciliation Case mgmt discharge readiness Clinical Stability Diagnostic Workup Product Transfer Pumper Recommendations Facility Choice Selection Imaging Results PT discharge readiness OT discharge readiness Patient Education Complete Expected Discharge History Expected Date/Time Set By Reviewed At 04/13/2024 Cathi Avila RN 04/12/2024 8:02 AM hep gtt- transitioning to coumadin, INR 1.9" 04/11/2024 Cathi Avila RN 04/11/2024 8:03 AM 04/11/2024 Cathi Avila RN 04/10/2024 8:41 AM hep gtt- transitioning to coumadin" 04/10/2024 Virginia Rehman RN 04/09/2024 8:13 AM 04/08/2024 Virginia Rehman RN 04/06/2024 8:13 AM hep gtt, poss thrombectomy 04/07/2024 Virginia Rehman RN 04/05/2024 8:03 AM hep gtt, poss thrombectomy tomorrow" 04/06/2024 Virginia Rehman RN 04/04/2024 8:48 AM hep gtt, oliva lower US, vasc consult" 04/06/2024 Bernie Cutler APRN - APPLICATIONS PROJECT MANAGER 04/04/2024 4:04 AM 04/06/2024 Bernie Cutler APRN - APPLICATIONS PROJECT MANAGER 04/03/2024 11:17 PM Length of Stay (Days): 9 GMLOS: 4 The patient is Moderately Stable - Low risk of patient condition declining or worsening The patient's goals for the shift include rest, safety The clinical goals for the shift include safety, hemodynamic stability Problem: Safety - Adult Goal: Free from fall injury Outcome: Progressing Problem: Pain - Adult Goal: Verbalizes/displays adequate comfort level or baseline comfort level Outcome: Progressing Problem: Chronic Conditions and Co-morbidities Goal: Patient's chronic conditions and co-morbidity symptoms are monitored and maintained or improved Outcome: Progressing Problem: Knowledge Deficit Goal: Patient/family/caregiver demonstrates understanding of disease process, treatment plan, medications, and discharge instructions Outcome: Progressing Images from the original note were not included. Care Management Progress Note Patent currently still on Hep Drip, INR 1.9. Will convert to oral when appropriate. Pt active with inna WIGGINS- will continue services at discharge. Await treatment plan and clinical progress. trust manager will continue to follow for transitional care needs for discharge planning. Discharge Milestones and Delays Expected date/time: 04/11/2024 Expected discharge disposition: Home Health Services Discharge Milestones Place discharge order Complete med reconciliation Case mgmt discharge readiness Clinical Stability Diagnostic Workup Facility Choice Selection Imaging Results Patient Education Complete Expected Discharge History Expected Date/Time Set By Reviewed At 04/11/2024 Cathi Avila RN 04/11/2024 8:03 AM hep gtt- transitioning to coumadin, INR 1.9" 04/11/2024 Cathi Avila RN 04/10/2024 8:41 AM hep gtt- transitioning to coumadin" 04/10/2024 Virginia Rehman RN 04/09/2024 8:13 AM 04/08/2024 Virginia Rehman RN 04/06/2024 8:13 AM hep gtt, poss thrombectomy 04/07/2024 Virginia Rehman RN 04/05/2024 8:03 AM hep gtt, poss thrombectomy tomorrow" 04/06/2024 Virginia Rehman RN 04/04/2024 8:48 AM hep gtt, oliva lower US, vasc consult" 04/06/2024 SEBASTIAN Herrera CNP 04/04/2024 4:04 AM 04/06/2024 SEBASTIAN Herrera CNP 04/03/2024 11:17 PM Length of Stay (Days): 8 GMLOS: 4 Problem: Pain - Adult Goal: Verbalizes/displays adequate comfort level or baseline comfort level Outcome: Progressing Problem: Safety - Adult Goal: Free from fall injury Outcome: Progressing Problem: Discharge Planning Goal: Discharge to home or other facility with appropriate resources Outcome: Progressing Problem: Chronic Conditions and Co-morbidities Goal: Patient's chronic conditions and co-morbidity symptoms are monitored and maintained or improved Outcome: Progressing Problem: Knowledge Deficit Goal: Patient/family/caregiver demonstrates understanding of disease process, treatment plan, medications, and discharge instructions Outcome: Progressing Problem: Potential for Compromised Skin Integrity Goal: Skin Integrity is Maintained or Improved Outcome: Progressing Goal: Nutritional status is improving Outcome: Progressing Problem: Urinary Incontinence Goal: Perineal skin integrity is maintained or improved Outcome: Progressing The patient is Moderately Stable - Low risk of patient condition declining or worsening The patient is Moderately Stable - Low risk of patient condition declining or worsening The patient's goals for the shift include rest The clinical goals for the shift include safety Problem: Chronic Conditions and Co-morbidities Goal: Patient's chronic conditions and co-morbidity symptoms are monitored and maintained or improved Outcome: Progressing Problem: Safety - Adult Goal: Free from fall injury Outcome: Progressing Problem: Pain - Adult Goal: Verbalizes/displays adequate comfort level or baseline comfort level Outcome: Progressing Problem: Pain - Adult Goal: Verbalizes/displays adequate comfort level or baseline comfort level Outcome: Progressing Problem: Safety - Adult Goal: Free from fall injury Outcome: Progressing Problem: Discharge Planning Goal: Discharge to home or other facility with appropriate resources Outcome: Progressing Problem: Chronic Conditions and Co-morbidities Goal: Patient's chronic conditions and co-morbidity symptoms are monitored and maintained or improved Outcome: Progressing Problem: Knowledge Deficit Goal: Patient/family/caregiver demonstrates understanding of disease process, treatment plan, medications, and discharge instructions Outcome: Progressing Problem: Potential for Compromised Skin Integrity Goal: Skin Integrity is Maintained or Improved Outcome: Progressing Goal: Nutritional status is improving Outcome: Progressing Problem: Urinary Incontinence Goal: Perineal skin integrity is maintained or improved Outcome: Progressing The patient is Moderately Stable - Low risk of patient condition declining or worsening Images from the original note were not included. Care Management Progress Note Patient currently still on Heparin Drip, INR 1.6 today.Will convert to oral when appropriate. Pt active with inna WIGGINS- will continue services at discharge. Await treatment plan and clinical progress. trust manager will continue to follow for transitional care needs for discharge planning. Discharge Milestones and Delays Expected date/time: 04/11/2024 Expected discharge disposition: Home or Self Care Discharge Milestones Place discharge order Complete med reconciliation Case mgmt discharge readiness Clinical Stability Diagnostic Workup Product Transfer Pumper Recommendations Facility Choice Selection Imaging Results Patient Education Complete Expected Discharge History Expected Date/Time Set By Reviewed At 04/11/2024 Cathi Avila RN 04/10/2024 8:41 AM hep gtt- transitioning to coumadin" 04/10/2024 Virginia Rehman RN 04/09/2024 8:13 AM 04/08/2024 Virginia Rehman RN 04/06/2024 8:13 AM hep gtt, poss thrombectomy 04/07/2024 Virginia Rehman RN 04/05/2024 8:03 AM hep gtt, poss thrombectomy tomorrow" 04/06/2024 Virginia Rehman RN 04/04/2024 8:48 AM hep gtt, oliva lower US, vasc consult" 04/06/2024 Bernie Cutler APRN - APPLICATIONS PROJECT MANAGER 04/04/2024 4:04 AM 04/06/2024 Bernie Cutler APRN - APPLICATIONS PROJECT MANAGER 04/03/2024 11:17 PM Length of Stay (Days): 7 GMLOS: 4 Images from the original note were not included. Care Management Progress Note Remains on heparin gtt while transitioning to coumadin. Consult Hemology. Pt active with inna WIGGINS- will continue services at discharge. Await treatment plan and clinical progress. trust manager will continue to follow for transitional care needs for discharge planning. Discharge Milestones and Delays Expected date/time: 04/10/2024 Expected discharge disposition: Home or Self Care Discharge Milestones Place discharge order Complete med reconciliation Case mgmt discharge readiness Clinical Stability Diagnostic Workup Product Transfer Pumper Recommendations Facility Choice Selection Imaging Results Patient Education Complete Expected Discharge History Expected Date/Time Set By Reviewed At 04/10/2024 Virginia Rehman RN 04/09/2024 8:13 AM hep gtt- transitioning to coumadin" 04/08/2024 Virginia Rehman RN 04/06/2024 8:13 AM hep gtt, poss thrombectomy 04/07/2024 Virginia Rehman RN 04/05/2024 8:03 AM hep gtt, poss thrombectomy tomorrow" 04/06/2024 Virignia Rehman RN 04/04/2024 8:48 AM hep gtt, oliva lower US, vasc consult" 04/06/2024 Bernie Cutler APRN - APPLICATIONS PROJECT MANAGER 04/04/2024 4:04 AM 04/06/2024 Bernie Cutler APRN - APPLICATIONS PROJECT MANAGER 04/03/2024 11:17 PM Length of Stay (Days): 6 GMLOS: 3.1 Progressing The patient is Moderately Stable - Low risk of patient condition declining or worsening The patient's goals for the shift include met The clinical goals for the shift include met Over the shift, the patient did not make progress toward the following goals. Barriers to progression include Problem: Safety - Adult Goal: Free from fall injury Outcome: Progressing . Recommendations to address these barriers include Problem: Pain - Adult Goal: Verbalizes/displays adequate comfort level or baseline comfort level Outcome: Progressing . Images from the original note were not included. Care Management Progress Note Pt s/p thrombectomy this am with vascular. Remains on heparin gtt while transitioning to coumadin. Pt active with inna WIGGINS- will continue services at discharge. Discharge Milestones and Delays Expected date/time: 04/08/2024 Expected discharge disposition: Home or Self Care Discharge Milestones Place discharge order Complete med reconciliation Case mgmt discharge readiness Clinical Stability Diagnostic Workup Facility Choice Selection Patient Education Complete Expected Discharge History Expected Date/Time Set By Reviewed At 04/08/2024 Virginia Rehman RN 04/06/2024 8:13 AM hep gtt, poss thrombectomy 04/07/2024 Virginia Rehman RN 04/05/2024 8:03 AM hep gtt, poss thrombectomy tomorrow" 04/06/2024 Virginia Rheman RN 04/04/2024 8:48 AM hep gtt, oliva lower US, vasc consult" 04/06/2024 Bernie Cutler APRN - APPLICATIONS PROJECT MANAGER 04/04/2024 4:04 AM 04/06/2024 Bernie Cutler APRN - APPLICATIONS PROJECT MANAGER 04/03/2024 11:17 PM Length of Stay (Days): 3 GMLOS: 3.1 Patient report called to 4N RN and denies any further questions. Patient resting comfortably and no signs of distress. Per resident patient to lay flat for 2 hours and restart heparin GTT at 1215. Transport notified. SW assisted patient with completion of Health Care Power of [employer]. One copy placed in patient chart, one copy sent to medical records and two copies given to patient. Requested by patient, while at bedside this SW spoke to patient's son via patients phone to explain that HCPOA was being completed by patient. Patients son José Miguel Castillo ([phone]) agreed to be this patients agent on the HCPOA and confirmed understanding. OPERATIVE REPORT DATE OF SERVICE: 04/06/2024 PRE-PROCEDURE DIAGNOSIS: Extensive right lower extremity deep venous thrombosis POST-PROCEDURE DIAGNOSIS: As above PROCEDURE PERFORMED: 1) Percutaneous access to the right popliteal vein 2) Right lower extremity and iliocaval venography 3) suction thrombectomy with Penumbra Flash of inferior vena cava, right common iliac vein, right external iliac vein, right common femoral vein, and right femoral vein 4) Completion venogram SURGEON: Kritsyn Blankenship MD ASSISTANTS: Selene Naik MD (PGY-4) FINDINGS: Consistent with diagnosis. Thrombus present in previously placed IVC Filter and inferior vena cava as well as in the imaged vessels on duplex. Completion venogram shows significant improvement with resolution of thrombus in the right lower extremity. A small amount of thrombus remained present within the filter. ANESTHESIA: General ESTIMATED BLOOD LOSS: 300 ml COMPLICATIONS: None SPECIMENS: None IMPLANTS: None WOUND CLASS: 1 FLUORO TIME: 8.3 min DOSE: 251 mGy CONTRAST: 50 ml INDICATIONS FOR PROCEDURE: The patient is an 83-year-old female who presented with right lower extremity pain to the emergency department. While she has concurrent lower extremity arterial disease, she had significant right lower extremity swelling. A venous duplex was performed which revealed extensive right lower extremity DVT with proximal extension into the external iliac vein. It was noted on that examination of the right common iliac vein was not visualized. The patient was trialed on nonoperative management with anticoagulation however her pain persisted which limited her walking abilities. Mechanical thrombectomy was recommended. Risks benefits and alternatives were discussed with the patient and she elected to proceed. PROCEDURE IN DETAIL: The patient was taken to the operating room placed in the prone position. General anesthesia was induced prior to positioning. The patient's bilateral popliteal spaces were prepped and draped in the usual sterile fashion. A timeout was performed verifying the correct patient, side, site, procedure to be performed. Under ultrasound guidance, the patient's right popliteal vein was accessed using a micropuncture needle kit and Seldinger technique was used to place a 5 Cameroonian sheath. A Bentson wire was able to be advanced in the inferior vena cava without difficulty. The 5 Cameroonian sheath was then upsized to a 16 Cameroonian sheath and the penumbra flash suction thrombectomy device was prepared per glass polisher's instructions. The patient was also given 5000 units of heparin for systemic anticoagulation at this time. The Penumbra device was then inserted through the 16 Cameroonian sheath and a suction thrombectomy was performed of the right lower extremity including the right femoral vein, right common femoral vein, right external iliac vein, right common iliac vein, and inferior vena cava. Frequent venograms were performed to ensure appropriate device placement. Of note, a previously placed inferior vena cava filter was present with struts lying outside of the inferior vena cava. Thrombus was present within the filter as well as in the inferior vena cava below the filter which was not specifically visualized on preoperative imaging. Several passes were made with the penumbra suction device which showed significant improvement in the thrombus burden within inferior vena cava as well as the common iliac vein on the right. Venogram of the right lower extremity showed resolution of thrombus within the common iliac vein, external iliac vein, common femoral vein, and femoral vein following mechanical thrombectomy. The device was removed as was the 16 Cameroonian sheath and an 0 silk suture was placed at the access site with manual pressure held to achieve hemostasis. A sterile dressing was then applied. All sponge and needle counts were correct at the conclusion of the case. The patient was awakened from general anesthesia and transferred to the recovery area in stable condition. Doppler signals remained present in the AT and PT at the conclusion of the case. Kristyn Blankenship MD Vascular Surgery Date: 04/06/2024 Location: [facility] OR Name: Mel Pop, : 1940, Diagnosis Pre-op Diagnosis * Right leg DVT (HCC) [I82.401] Post-op Diagnosis * Right leg DVT (HCC) [I82.401] Procedures RIGHT LOWER EXTREMITY VENOUS MECHANICAL THROMBECTOMY 16464 - ND PRQ TRANSLUMINAL MECHANICAL THROMBECTOMY VEIN Surgeons * Kristyn Blankenship - Primary Procedure Summary Anesthesia: General ASA: III Estimated Blood Loss: 300 mL Drains: * None in log * Staff: Used Car Renovator: Negrita Rey RN; Amira Burton RN Scrub Person: Linnette Shukla RN Findings: Significant clot burden removed. Post op pulse exam in RLE: Strong AT, faint PT Patient to lay flat 2hrs post op Restart heparin gtt at 12:15PM Okay to resume regular diet Behind knee suture to removed tomorrow Complications: None; patient tolerated the procedure well. Specimens Collected: Order Name Source Comment Collection Info Order Time BLOOD TYPE AND SCREEN GEL Blood, Venous 04/06/2024 9:58 AM Wound Class: Class I: Clean Blood Products: None Prophylactic Antibiotics: Pre-operative antibiotics were not given because antibiotics are not indicated for this procedure. Dr Blankenship at bedside. She called family to update them on procedure time change Images from the original note were not included. Care Management Progress Note Vascular following with noted plan for possible thrombectomy tomorrow. Remains on heparin gtt while transitioning to coumadin per oncology recommendation. Pt from home alone- indep and active with inna WIGGINS- will return. Discharge Milestones and Delays Expected date/time: 04/07/2024 Expected discharge disposition: Home or Self Care Discharge Milestones Place discharge order Complete med reconciliation Case mgmt discharge readiness Clinical Stability Diagnostic Workup Facility Choice Selection Patient Education Complete Expected Discharge History Expected Date/Time Set By Reviewed At 04/07/2024 Virginia Rehman RN 04/05/2024 8:03 AM hep gtt, poss thrombectomy tomorrow" 04/06/2024 Virginia Rehman RN 04/04/2024 8:48 AM hep gtt, oliva lower US, vasc consult" 04/06/2024 Bernie Cutler APRN - APPLICATIONS PROJECT MANAGER 04/04/2024 4:04 AM 04/06/2024 Bernie Cutler APRN - APPLICATIONS PROJECT MANAGER 04/03/2024 11:17 PM Length of Stay (Days): 2 GMLOS: 3.1 The patient is Moderately Stable - Low risk of patient condition declining or worsening The patient's goals for the shift include met The clinical goals for the shift include met Care Managment Initial Assessment Date: 04/04/2024 Patient Name: Mel Pop : 1940 Patient Information Source of Information: Patient Cognition/Language: WFL - Within Functional Limits Permission given to speak with patient artist's representative/caregiver as indicated: Confirmation of Payer with patient/family: Yes Payer Name: nadege : No Confirmation of Primary Care Physician: Confirmed PCP Name: jared evans Seen in last 2 years?: Yes Primary Caregiver: Self If assistance needed, confirmed caregiver ready, willing and able to care for patient at discharge: Confirmed with: pt indep Living Arrangements Current Residence: (mobile home) Number of Floors 3 Number of Entry Steps: 1 Bed/Bath Levels: Both first floor Facility: Facility Name: Plan to Return: Lives with: Alone Support Systems: Children, Family members, Friends/neighbors Activities of Daily Living Ambulation: Independent (uses cane and walker) Bathing/Dressing: Independent Elimination/Continence/Toileting: Independent Feeding: Independent Who Assists with Activities of Daily Living: Instrumental Activities of Daily Living Prescription Coverage: Yes [facility] Used: [facility] Medication Management: Independent Transportation/Shopping: Assistance Provider Transportation/Shopping Assistance Provider Name: natividad Transportation Mode: Car Needs Assistance with Transportation at Discharge: No Meal Preparation: Independent Laundry/Cleaning: Independent Finances/Bill Paying: Independent Communication: Independent Types of Care Services/Equipment Utilized Care Services: Skilled Home Health Services Care Services Provider Name: inna WIGGINS Dialysis Type: POLO Durable Medical Equipment: Cane, Walker Patient's Goal/Discharge Plan Patient expects to be discharged to: home with Discharge Planning Actions: Continue to follow Patient's Choice Rights and [employer] and Collaborative Relationships Disclosed as Indicated for Post-Acute Care: NA Interdisciplinary Team Engagement: Home Health Care Social Work Referral for: Additional Information: Pt adm for tx/evaluation of right leg pain/peripheral artery disease/right leg weakness/aFib. Vascular evaluated- no surgical plans, recommend hemoc consult and continue heparin gtt. Consult to hemoc placed. Met with pt- introduced self and role. Pt from home alone and indep. [facility] liaison following for continued services. Pt uses walker/cane at baseline. Pt has insurance, PCP and able to obtain meds. Pt's friends help with transportation. No needs antic at discharge. Virginia Rehman RN Start PACC Note Home Health Referral Educated patient on Home Care and services available. Patient offered choice of available HHC and agreeable to SN/PT services with [facility]. Care Types: None Isolation Precautions: No active isolations Social Determinates of Health: Tobacco Use: High Risk (04/04/2024) Patient History Smoking Tobacco Use: Every Day Smokeless Tobacco Use: Never Passive Exposure: Not on file Social History Substance and Sexual Activity Alcohol Use Yes Alcohol/week: 1.0 standard drink of alcohol Types: 1 Cans of beer per week Social History Substance and Sexual Activity Drug Use Never Does the patient have any financial resource strain? No Does the patient have any food insecurities? No Does the patient have any housing instabilities? No If any of the above is noted as yes - consider a LABOR TRAINING MANAGER evaluation once the patient returns home. START PATIENT REGISTRATION INFORMATION Order Information Order Signing Physician: Robert Vigil MD Service Ordered RN ?: Yes Service Ordered PT ?: Yes Service Ordered OT ?: No Service Ordered ST ?: No Service Ordered LABOR TRAINING MANAGER?:No Service Ordered DINING ROOM BUSSER?: No Following Physician: Jared Evans MD Following Physician Overseeing Physician: Jared Evans MD (Required for Residents only) Agreeable to Follow? Yes Date/Time of Call 04/04/24 11:36 AM, Spoke with: Patient is a DEB. Care Coordination Same Day SOC?: No Primary Care Physician: Jared Evans MD Primary Care Physician Primary Care Physician Address: [address] [place] [address] / [facility] [id number] Visit Instructions: N/A Service Discharge Location Type: Home with Home Care Service Facility Name: N/A Service Floor Facility: N/A Service Room No: N/A Demographics Patient Last Name: Jose Alberto Patient First Name: Mel Language/Communication Barrier: none Service Address: [facility] [address] Service City: [place] Service ST: [place] Service ZIP: [address] Service Other phone numbers: Telephone Information: Emergency Contact: Extended Emergency Contact Information Primary Emergency Contact: Damaris Villafana Mobile Relation: Friend Secondary Emergency Contact: José Miguel Castillo/ Fidel Mobile Relation: Child Admission Information Admit Date: 04/03/2024 Patient status at discharge: Inpatient Admitting Diagnosis: Right leg pain [M79.604] Peripheral arterial disease (HCC) [I73.9] Right leg weakness [R29.898] Atrial fibrillation, unspecified type (HCC) [I48.91] Caregiver Information Caregiver First Name: na Caregiver Last Name: na Caregiver Relationship to Patient na Caregiver Phone Number: na Caregiver Notes: N/A [employer] List No END PATIENT REGISTRATION INFORMATION Pt Home Health goal Return home and prevent readmission. COVID Status 1. Do you have any upper respiratory symptoms (cough, SOB, Fever)? No 2. Have you been exposed to anyone with COVID-19 Virus? No Answer only if pending or positive for COVID-19? 1. Agreeable to wear PPE at each visit? No 2. Is the hospital supplying them with PPE upon Discharge? No Start PACC Summary General Report/ Additional Comments 83 y.o. female with past medical history below who presents with chief complaint listed above. Patient states she developed right leg numbness and tingling pain which caused her some difficulty with ambulation earlier today. She was first evaluated at an outside facility where she underwent CTA of the LE, showing severe lower extremity atherosclerotic disease with bilateral superficial femoral artery occlusion. Discussion there with vascular surgery recommended transfer in case she requires acute vascular surgical intervention. Discharge Date: pending Referral Source-PACC: (Hospital/Unit): [facility] / N4-461/N4-461 B End PACC Note The patient is Moderately Stable - Low risk of patient condition declining or worsening The patient's goals for the shift include safety The clinical goals for the shift include therapeutic aptt Patient is currently active with [facility]. The patients current certification period will on 05/18/24. The patient is currently receiving PT services through the agency. [facility] K[facility] Head to continue to follow. [facility]ANNING Mel Pop : 1940 Primary Care Physician: Jared Evans MD The patient and/or family/surrogate voluntarily agreed to participate in ACP services. Patient s cognitive capacity: intact Code Status: [ ] [FULL CODE - Continue all advanced life support: CPR,intubation,invasive procedures] [X] [DNR-CCA - DO NOT do CPR, intubation] [_] [DNR-STEAMER TENDER - Comfort care only] [_] DNR form [was/was not] signed Summary of discussion: [Condition that instigated the ACP on this DOS, relevant PMH, functional status, goals of care, and whom this was discussed with including names and relationship to the patient, and any relevant advance care documentation discussion] I answered all the patient/family questions that I could within the range and scope of the current medical situation. We discussed the medical conditions, risks, benefits, outcomes, and goals of care at this time for the patient's medical issues at hand in the face of the patient's chronic issues and current presentation. Total time spent: 10 minutes were spent discussing the patient's resuscitation status, advance care planning, and end of life care, with patient and/or family/surrogate. Pratibha Avelar DO Acute care [facility] 04/04/2024, 5:40 AM The patient is Moderately Stable - Low risk of patient condition declining or worsening The patient's goals for the shift include met The clinical goals for the shift include met Over the shift, the patient did not make progress toward the following goals. Barriers to progression include . Recommendations to address these barriers include . documented in this encounter [facility] 04-13-2024 Note [facility] 04-13-2024 Hospital course Narrative Discharge Summary Mel Pop : 1940 ADMIT DATE: 04/03/2024 DISCHARGE DATE: 04/13/2024 PRIMARY CARE PHYSICIAN: Jared Evans VISIT STATUS: Admission CODE STATUS: DNR-CCA DISCHARGE DIAGNOSES: Principal Problem: Peripheral arterial disease (HCC) Bilateral lower extremity DVTs RLE thrombectomy HOSPITAL COURSE: 83-year-old woman with history of A-fib on Eliquis, tobacco use, hypertension, hyperlipidemia, asthma, hiatal hernia, GERD presented to [facility] on 04/03 with right leg pain, numbness, tingling causing difficulty ambulating. CTA of lower extremity showed severe atherosclerotic disease with bilateral superficial femoral artery occlusion and transferred to [facility]. She underwent venous thrombectomy with vascular surgery and was initiated on warfarin bridging with heparin. [facility] followed and managed bridging anticoagulation. Pt reported feeling improvement from day to day. Though she was concerned that being stuck in the hospital will debilitate her.Her INR was therapeutic on 04/13. [facility] recommended transition to Warfarin alternating 5mg/7.5mg dosing and close OP follow up for INR check. SIGNIFICANT DIAGNOSTIC STUDIES: BLE Duplex CONSULTANTS: Vascular surgery Pharmacy RECOMMENDED NEXT STEPS: Follow up with [facility] and vascular DISCHARGE MEDICATIONS: Medication List START taking these medications oxyCODONE 5 MG immediate release tablet Commonly known as: Roxicodone Take 1 tablet (5 mg) by mouth every 6 hours as needed for severe pain (7-10) for up to 5 days. warfarin 5 MG tablet Commonly known as: Coumadin Take 1 tablet (5mg) on 04/13 in the evening Take 1.5 tablets (7.5mg) on 04/14 Take 1 tablet (5mg) on 04/15 Follow up with [facility] pharmacy for further dosing CONTINUE taking these medications albuterol 108 (90 Base) MCG/ACT inhaler ascorbic acid 500 MG tablet Commonly known as: Vitamin C lisinopril 5 MG tablet pantoprazole 40 MG EC tablet Commonly known as: ProtoNix Trelegy Ellipta 100-62.5-25 MCG/ACT aerosol powder Generic drug: Ktumgsnebcv-Qiymfmvxd-Ciirby STOP taking these medications Eliquis 5 MG tablet Generic drug: apixaban Where to Get Your Medications These medications were sent to [facility] [address] [place] [address], [facility] [id number] Hours: Tuesday to Tuesday 10 am to 6 pm oxyCODONE 5 MG immediate release tablet warfarin 5 MG tablet DIET: Adult diet Regular ACTIVITY: No restriction. COMPLEXITY OF FOLLOW UP: [x] Moderate Complexity: follow up within 7-14 calendar days (53413) [] Severe Complexity: follow up within 7 calendar days (67370) FOLLOW UP TESTING, PENDING RESULTS OR REFERRALS AT TRANSITIONAL CARE VISIT: [] Yes [x] No PENDING STUDIES: none DISPOSITION: Home with Home Health Care FACILITY/HOME CARE AGENCY NAME: [facility] Follow up with Kristyn Blankenship MD [address] [place], [place] [id number] Schedule an appointment as soon as possible for a visit [facility] clinic for INR check next week INSTRUCTIONS TO MA/SW: Please call patient on day after discharge (must document patient contacted within 2 business days of discharge). FOLLOW UP QUESTIONS FOR MA/SW: 1. Did you get medications filled and taking them as instructed from discharge? 2. Are you following your discharge instructions from your hospital stay? 3. Please confirm patient is scheduled for a follow up appointment within the above time frame. DISCHARGE TIME: > 30 minutes SIGNED: Jordin Roldan MD 04/13/2024, 2:20 PM documented in this encounter [facility] 04-13-2024 History of Present illness Narrative Images from the original note were not included. PHYSICAL THERAPY [facility] Note Name/MRN: Mel Pop ([id number]) Date of : 1940 Age: 83 y.o. Room/Bed: N4-461/N4-461 B Discharge Recommendation: Home with Home health PT Prior Level of Function ADL Assistance: Independent Ambulation Assistance: Independent Device(s) used: Front wheeled walker Transfer Assistance: Independent Assessment Pt modif indep for bed mobility. Pt indep for transfers. Pt supervision for ambulation with FWW. Recommend home with home PT. Subjective Pt in bed. Agreeable to PT. Pain: some pain/tingling in R calf after ambulation Medical Precautions: No active isolations Proper PPE donned/doffed in accordance with facility standards. Fall Risk: Nugent Fall Risk Score: 35 (Medium Risk) Precautions/Restrictions: Lines/Drains/Airways: PIV Overall Cognitive Status: Exceptions - Arousal/alertness: appropriate responses to stimuli - Following commands: follows one step commands consistently - Safety judgement: no bed alarm Overall Orientation Status: Oriented to Person Family/Caregiver Present: none Objective Bed Mobility Supine to sit: Modified Independent Sit to supine: Modified Independent Scooting: Independent HOB elevated Transfers/Mobility Sit to stand: Independent Stand to sit: Independent From bed; from toilet modif indep with grab bar Device(s) used: Front wheeled walker Ambulation Ambulation 1 Assistive device(s) used: Front wheeled walker Assist level: SBA Distance (ft): 12 Quality of gait: slow jenni, decreased step length, Ambulation 2 Assistive device(s) used: Front wheeled walker Assist level: Supervision Distance (ft): 100ft Quality of gait: slower jenni, no LOB with walker. Balance During Session: Sat on EOB indep. Static stance with supervision. Able to perform her own pericare. Supervision for balance during hand hygiene. Plan Continue acute PT per plan of care. Safety/Education Safety Safety Devices in place: call light within reach, left in bed, gait belt, and no alarms engaged upon entry Restraints: No Education Education Given To: patient Education Provided: PT Role Education Method: Verbal Barriers to Learning: Education Outcome: Outcome Measures AM-PAC AM-PAC Inpatient Mobility Raw Score (No Stairs) : 19 JH-HLM -HLM Score: Walked 25 ft or more (i.e. walked outside of room) Goals Patient Stated Goal: to get better Encounter Problems Encounter Problems (Active) Mobility Patient will ambulate 50 feet with modified independence and rolling walker in order to improve safety and independence with mobility. (Progressing) Start: 04/11/24 Expected End: 05/09/24 Patient will ascend and descend entry stairs with least restrictive device and modified independence in order to safely negotiate home. (Not Addressed) Start: 04/11/24 Expected End: 05/09/24 Pain - Adult Transfers Patient will perform bed mobility with independence in order to improve independence and prepare for out of bed mobility. (Progressing) Start: 04/11/24 Expected End: 05/09/24 Patient will complete sit to stand transfer with independence to walker in order to improve safety and prepare for out of bed mobility. (Progressing) Start: 04/11/24 Expected End: 05/09/24 Therapy Time Individual Co-treatment Time In 1032 Time Out 1045 Minutes 13 (Gait) Christin Gu PT [facility] Anticoagulation Management Service ([facility]) Inpatient Warfarin Consult HPI: Mel Pop is a 83 y.o. female admitted on 04/03/2024 for Peripheral arterial disease (HCC). Past Medical History: Diagnosis Date Asthma Essential hypertension 03/07/2020 GERD (gastroesophageal reflux disease) Hiatal hernia Pure hypercholesterolemia 03/07/2020 Patient is newly referred to the [facility] clinic for warfarin management. Pt was referred by SEBASTIAN Tate CNP. Pt is on warfarin for DVT and has a goal INR 2.0 - 3.0. Patient also has a history of afib. Duration of therapy= likely indefinite. Reason for warfarin instead of DOAC: Eliquis failure PCP: Jared Evans MD S/sx of bleeding= no active signs of bleeding noted, did have hgb drop post OR 04/06 Interacting medications= therapeutic heparin infusion Labs: Recent Labs 04/11/24 0027 04/12/24 0519 04/13/24 0359 HGB 8.3* 9.3* 8.6* HCT 24.6* 28.3* 26.3* PLT 244 307 317 Recent Labs 04/13/24 0359 INR 2.3* Date INR Dose 04/13 2.3 5mg 04/12 1.9 7.5mg 04/11 1.9 5mg 04/10 1.6 5mg 04/09 1.2 7.5mg 04/08 1.0 5 mg 04/07 1.0 5 mg 04/06 1.0 2.5 mg 04/05 1.1 Held for OR 04/04 --- 2.5 mg 04/03 1.0 --- Assessment/Plan: 1. INR is therapeutic today and patient has been requiring a mix of 5mg and 7.5mg doses. Will give warfarin 5mg today. 2. Will monitor for s/s of bleeding and drug interactions and adjust dose accordingly. 3. Will facilitate [facility] follow-up upon discharge. Patient is agreeable to [facility] follow up. If discharged today, recommend sending home with 5mg tablets with instructions to take 5mg Tuesday (if not already received in hospital), 7.5mg Tuesday, 5mg Tuesday, and will recheck INR Tuesday via home care. 4. Provided warfarin education. Marybeth Rahman RPh, PharmD [facility] Consult Service is available daily [phone] via [employer]. If no response, please page [phone]. Hospitalist Progress Note 04/13/2024 Subjective: Admit Date: 04/03/2024 PCP: Jared Evans MD Room#: N4-181/N4-431 B BRIEF HOSPITAL COURSE: 83-year-old woman with history of A-fib on Eliquis, tobacco use, hypertension, hyperlipidemia, asthma, hiatal hernia, GERD presented to [facility] on 04/03 with right leg pain, numbness, tingling causing difficulty ambulating. CTA of lower extremity showed severe atherosclerotic disease with bilateral superficial femoral artery occlusion and transferred to [facility]. She underwent venous thrombectomy with vascular surgery and was initiated on warfarin bridging with heparin. [facility] followed and managed bridging anticoagulation. Pt reported feeling improvement from day to day. Though she was concerned that being stuck in the hospital will debilitate her.Her INR was therapeutic on 04/13. [facility] recommended transition to Warfarin alternating 5mg/7.5mg dosing and close OP follow up for INR check. Interval History: Pt seen and examined at bedside. No acute events overnight. Requested to work with PT this morning. They recommend home PT. Heparin gtt discontinued, plan for alternating 5/7.5 dosed warfarin and close OP follow up with [facility]. Case and plan discussed with patient and bedside nurse. All questions answered. Adult diet Regular 24HR INTAKE/OUTPUT: Intake/Output Summary (Last 24 hours) at 04/13/2024 0710 Last data filed at 04/13/2024 0639 Gross per 24 hour Intake 543.24 ml Output 275 ml Net 268.24 ml Past Medical History: Past Medical History: Diagnosis Date Asthma Essential hypertension 03/07/2020 GERD (gastroesophageal reflux disease) Hiatal hernia Pure hypercholesterolemia 03/07/2020 LABS: CBC: Recent Labs 04/11/242604/12/2451804/13/24 035 WBC 4.5 4.1 4.2 RBC 2.72* 3.06* 2.89* HGB 8.3* 9.3* 8.6* HCT 24.6* 28.3* 26.3* MCV 90.4 92.5 91.0 RDW 14.8 14.8 14.5 PLT 244 307 317 BMP: Recent Labs 04/11/242604/12/2451804/13/24 0359 NA 134* 135 135 K 4.0 3.9 4.3 CL 108* 108* 108* CO2 22 24 25 BUN 16 16 18* CREATININE 1.01 0.99 1.00 GLUCOSE 112* 101* 98 CALCIUM 8.8 9.3 9.0 ANIONGAP 4 3 2* LIVER PROFILE:No results for input(s): "AST", "ALT", "BILITOT", "ALKPHOS", "PROT" in the last 72 hours. No lab exists for component: LABALBU PT/INR: Recent Labs 04/11/242604/12/2451804/13/24 035 PROTIME 20.9* 20.3* 24.2* INR 1.9* 1.9* 2.3* CARDIAC ENZYMES: No results for input(s): "TROPONINI" in the last 72 hours. Procalcitonin: No results found for: "PROCAL" COVID-19 PCR: No results for input(s): "COVID19" in the last 72 hours. Objective: Vitals: BP 154/86 (BP Location: Left arm) Pulse 82 Temp 36 C (96.8 F) Resp 16 Ht 5' 4" (1.626 m) Wt 159 lb 8 oz (72.3 kg) SpO2 98% BMI 27.38 kg/m Pulse Ox: SpO2 Av % Min: 96 % Max: 98 % Supplemental O2: O2 Flow Rate (L/min): 2 L/min Physical Exam Constitutional: Appearance: Normal appearance. HENT: Head: Normocephalic and atraumatic. Mouth/Throat: Mouth: Mucous membranes are moist. Eyes: Pupils: Pupils are equal, round, and reactive to light. Cardiovascular: Rate and Rhythm: Normal rate. Pulmonary: Effort: Pulmonary effort is normal. Breath sounds: Normal breath sounds. Abdominal: General: Bowel sounds are normal. Palpations: Abdomen is soft. 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 Right lower leg: Right lower leg edema: mild. Left lower leg: Left lower leg edema: mild. Skin: Capillary Refill: Capillary refill takes less than 2 seconds. Neurological: Mental Status: She is alert and oriented to person, place, and time. Medications: Scheduled PRN Vwkwpyvlozg-Ebfhxieix-Hnjpvr, 1 puff, Inhalation, Daily influenza, 0.5 mL, IntraMUSCular, Once lisinopril, 5 mg, Oral, Daily pantoprazole, 40 mg, Oral, qAM AC PRN medications: acetaminophen OR acetaminophen, albuterol, heparin, heparin, naloxone, ondansetron ODT OR ondansetron, oxyCODONE OR oxyCODONE, polyethylene glycol (PEG) 3350 Continuous heparin, 5-30 Units/kg/hr, Last Rate: 14 Units/kg/hr (04/13/24 0637) Assessment Data: (CAT1) Reviewed 3 or more notes from different specialty or health system (each=1). (CAT1) Reviewed 3 or more labs/studies ordered by another provider not previously counted (each=1, panels count as 1). (LOW: 2x CAT1 or independent historian MOD: 3x CAT1 or 1x CAT3 EXTENSIVE: 3x CAT1 and 1x CAT3) Acute, acute on chronic, unstable/uncontrolled chronic problems/diagnoses: Bilateral lower extremity DVTs, status post right lower extremity thrombectomy Stable chronic problems affecting care, new non-acute diagnoses: A-fib Tobacco use Hypertension Hyperlipidemia Asthma Hiatal hernia GERD Failed Eliquis Mild CKD Plan As a result of the above findings & factors, the following mgmt was pursued: -Heparin bridge to warfarin per [facility] recommendations - INR therapeutic on 04/13 - 5mg dose warfarin today, 7.5mg 04/14, 5mg 04/15 and follow up with [facility] on 04/16 for repeat INR -Resumed home Trelegy (patient's family brought from home) -Continue lisinopril - Continue oxycodone for acute pain, discontinue IV pain medication - am labs, replace lytes prn - PT recommending home PT - PT/OT/CM/SW - delirium precautions: increase activity - DVT prophylaxis: heparin and encourage ambulation Complexity: Acute illness or injury posing a threat to life or body function (HIGH). Risk: Admission to hospital-level care was considered or occurred (HIGH). Advance Directive: DNR-CCA Anticipated Discharge - Date - 04/13 - Location - Home with home health and home PT - Pending the following - none Total time spent (which include face to face and non face to face encounters) : 32 minutes Extended Emergency Contact Information Primary Emergency Contact: Damaris Villafana Mobile Relation: Friend Secondary Emergency Contact: José Miguel Castillo/ Fidel Mobile Relation: Child Jordin Roldan MD Division of Hospitalist Medicine Acute [facility] Hospitalist Progress Note 04/12/2024 Subjective: Admit Date: 04/03/2024 PCP: Jared Evans MD Room#: N4461/N4460 B BRIEF HOSPITAL COURSE: 83-year-old woman with history of A-fib on Eliquis, tobacco use, hypertension, hyperlipidemia, asthma, hiatal hernia, GERD presented to [facility] on 04/03 with right leg pain, numbness, tingling causing difficulty ambulating. CTA of lower extremity showed severe atherosclerotic disease with bilateral superficial femoral artery occlusion and transferred to [facility]. She underwent venous thrombectomy with vascular surgery and was initiated on warfarin bridging with heparin. [facility] followed and managed bridging anticoagulation. Pt reported feeling improvement from day to day. Though she was concerned that being stuck in the hospital will debilitate her. Interval History: Patient seen and examined at bedside this morning. No acute events overnight. Leg edema continues to improve. She has been up and walking and has been feeling steady and had no complaints. Her INR is still subtherapeutic. [facility] managing bridge.. Case and plan discussed with patient and bedside nurse. All questions answered. Adult diet Regular 24HR INTAKE/OUTPUT: Intake/Output Summary (Last 24 hours) at 04/12/2024 1253 Last data filed at 04/12/2024 1018 Gross per 24 hour Intake 245.09 ml Output 275 ml Net -29.91 ml Past Medical History: Past Medical History: Diagnosis Date Asthma Essential hypertension 03/07/2020 GERD (gastroesophageal reflux disease) Hiatal hernia Pure hypercholesterolemia 03/07/2020 LABS: CBC: Recent Labs 04/10/24 0601 04/11/24 0027 04/12/24 0519 WBC 4.3 4.5 4.1 RBC 2.86* 2.72* 3.06* HGB 8.6* 8.3* 9.3* HCT 26.0* 24.6* 28.3* MCV 90.9 90.4 92.5 RDW 14.7 14.8 14.8 PLT 238 244 307 BMP: Recent Labs 04/10/24 0601 04/11/24 0027 04/12/24 0519 NA 136 134* 135 K 3.8 4.0 3.9 CL 111* 108* 108* CO2 21* 22 24 BUN 15 16 16 CREATININE 1.00 1.01 0.99 GLUCOSE 101* 112* 101* CALCIUM 9.0 8.8 9.3 ANIONGAP 3 4 3 LIVER PROFILE:No results for input(s): "AST", "ALT", "BILITOT", "ALKPHOS", "PROT" in the last 72 hours. No lab exists for component: LABALBU PT/INR: Recent Labs 04/10/24 0601 04/11/24 0027 04/12/24 0519 PROTIME 17.7* 20.9* 20.3* INR 1.6* 1.9* 1.9* CARDIAC ENZYMES: No results for input(s): "TROPONINI" in the last 72 hours. Procalcitonin: No results found for: "PROCAL" COVID-19 PCR: No results for input(s): "COVID19" in the last 72 hours. Objective: Vitals: BP 135/76 Pulse 80 Temp 36.3 C (97.4 F) (Temporal) Resp 18 Ht 5' 4" (1.626 m) Wt 159 lb 8 oz (72.3 kg) SpO2 96% BMI 27.38 kg/m Pulse Ox: SpO2 Av.5 % Min: 95 % Max: 96 % Supplemental O2: O2 Flow Rate (L/min): 2 L/min Physical Exam Constitutional: Appearance: Normal appearance. HENT: Head: Normocephalic and atraumatic. Mouth/Throat: Mouth: Mucous membranes are moist. Eyes: Pupils: Pupils are equal, round, and reactive to light. Cardiovascular: Rate and Rhythm: Normal rate. Pulmonary: Effort: Pulmonary effort is normal. Breath sounds: Normal breath sounds. Abdominal: General: Bowel sounds are normal. Palpations: Abdomen is soft. 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 Right lower leg: Right lower leg edema: mild. Left lower leg: Left lower leg edema: mild. Skin: Capillary Refill: Capillary refill takes less than 2 seconds. Neurological: Mental Status: She is alert and oriented to person, place, and time. Medications: Scheduled PRN Mzjqhwujimy-Mbhqyffku-Eoltwu, 1 puff, Inhalation, Daily influenza, 0.5 mL, IntraMUSCular, Once lisinopril, 5 mg, Oral, Daily pantoprazole, 40 mg, Oral, qAM AC warfarin, 7.5 mg, Oral, Once PRN medications: acetaminophen OR acetaminophen, albuterol, heparin, heparin, naloxone, ondansetron ODT OR ondansetron, oxyCODONE OR oxyCODONE, polyethylene glycol (PEG) 3350 Continuous heparin, 5-30 Units/kg/hr, Last Rate: 14 Units/kg/hr (04/12/24 1018) Assessment Data: (CAT1) Reviewed 3 or more notes from different specialty or health system (each=1). (CAT1) Reviewed 3 or more labs/studies ordered by another provider not previously counted (each=1, panels count as 1). (LOW: 2x CAT1 or independent historian MOD: 3x CAT1 or 1x CAT3 EXTENSIVE: 3x CAT1 and 1x CAT3) Acute, acute on chronic, unstable/uncontrolled chronic problems/diagnoses: Bilateral lower extremity DVTs, status post right lower extremity thrombectomy Stable chronic problems affecting care, new non-acute diagnoses: A-fib Tobacco use Hypertension Hyperlipidemia Asthma Hiatal hernia GERD Failed Eliquis Mild CKD Plan As a result of the above findings & factors, the following mgmt was pursued: -Continue heparin bridge to warfarin per [facility] recommendations - anticipate 1 more day of bridge at a minimum -Resumed home Trelegy (patient's family brought from home) -Continue lisinopril - Continue oxycodone for acute pain, discontinue IV pain medication - am labs, replace lytes prn - PT/OT/CM/SW - delirium precautions: increase activity - DVT prophylaxis: heparin and encourage ambulation Complexity: Acute illness or injury posing a threat to life or body function (HIGH). Risk: Admission to hospital-level care was considered or occurred (HIGH). Advance Directive: DNR-CCA Anticipated Discharge - Date - 04/13-? - Location - Home - Pending the following - Therapeutic INR Total time spent (which include face to face and non face to face encounters) : 32 minutes Toxic drug monitoring/narrow therapeutic index drug monitoring : # Drug name : Heparin # Route administered : IV # Method of monitoring : PTT Extended Emergency Contact Information Primary Emergency Contact: Damaris Villafana Mobile Relation: Friend Secondary Emergency Contact: José Miguel Castillo/ Fidel Mobile Relation: Child Jordin Roldan MD Division of Hospitalist Medicine [facility] Anticoagulation Management Service ([facility]) Inpatient Warfarin Consult HPI: Mel Pop is a 83 y.o. female admitted on 04/03/2024 for Peripheral arterial disease (HCC). Past Medical History: Diagnosis Date Asthma Essential hypertension 03/07/2020 GERD (gastroesophageal reflux disease) Hiatal hernia Pure hypercholesterolemia 03/07/2020 Patient is newly referred to the [facility] clinic for warfarin management. Pt was referred by Anthony Yee APRN - [facility]. Pt is on warfarin for DVT and has a goal INR 2.0 - 3.0. Patient also has a history of afib. Duration of therapy= likely indefinite. Reason for warfarin instead of DOAC: Eliquis failure PCP: Jared Evans MD S/sx of bleeding= no active signs of bleeding noted, did have hgb drop post OR 04/06 Interacting medications= therapeutic heparin infusion Labs: Recent Labs 04/10/24 0601 04/11/24 0027 04/12/24 0519 HGB 8.6* 8.3* 9.3* HCT 26.0* 24.6* 28.3* PLT 238 244 307 Recent Labs 04/12/24 0519 INR 1.9* Date INR Dose 04/12 1.9 7.5mg 04/11 1.9 5mg 04/10 1.6 5mg 04/09 1.2 7.5mg 04/08 1.0 5 mg 04/07 1.0 5 mg 04/06 1.0 2.5 mg 04/05 1.1 Held for OR 04/04 --- 2.5 mg 04/03 1.0 --- Assessment/Plan: 1. INR is subtherapeutic due to new start warfarin and stayed the same as yesterday - will give warfarin 7.5mg today. 2. Will monitor for s/s of bleeding and drug interactions and adjust dose accordingly. 3. Will facilitate [facility] follow-up upon discharge. Patient is agreeable to [facility] follow up. 4. Provided warfarin education. Marybeth Rahman RPh, PharmD [facility] Consult Service is available daily [phone] via [employer] Secure [employer]. If no response, please page [phone]. Images from the original note were not included. OCCUPATIONAL THERAPY [facility] Initial Evaluation Name/MRN: Mel Pop ([id number]) Evaluation Date: 04/11/2024 Date of : 1940 Admission Date: 04/03/2024 5:47 PM Age: 83 y.o. Room[facility]Bed: N4461/[facility] B Discharge Recommendation: Home with assist PRN, Home with Home health OT Equipment Needed: No Assessment IMPRESSION: 83 y/o female admitted for peripheral arterial disease s/p mechanical thrombectomy 04/06. Pt limited by R leg pain, decreased balance/endurance, and generalized weakness impacting ADLs. SBA functional transfers. Min-mod assist LB ADLs. Educated on adaptive strategies for LB ADLs. Anticipate home with assist prn and home health OT. Admitting Diagnosis: peripheral arterial disease s/p mechanical thrombectomy 04/06 Performance Deficits /Impairments: Increased Pain, Decreased Functional Mobility, Decreased ADL status, Decreased Strength, Decreased Endurance, and Decreased Balance Prognosis: Fair Decision Making: Low Complexity Subjective Pt sitting upright in bed, agreeable to OT. Pt c/o LLE swelling, nursing notified and in EOS to assess. Pain: RN managing pain. [place] Pain Ratin = Hurts little more Pain Location: RLE with movement Past Medical History: Past Medical History: Diagnosis Date Asthma Essential hypertension 03/07/2020 GERD (gastroesophageal reflux disease) Hiatal hernia Pure hypercholesterolemia 03/07/2020 Past Surgical History: Past Surgical History: Procedure Laterality Date FINGER AMPUTATION Right 03/07/2020 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 HYSTERECTOMY ORTHOPEDIC SURGERY OTHER CELL (HISTORICAL) Right 04/06/2024 RIGHT LOWER EXTREMITY VENOUS MECHANICAL THROMBECTOMY - Right Admission Diagnosis: Patient Active Problem List Diagnosis Date Noted Peripheral arterial disease (HCC) 04/03/2024 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) 07/27/2023 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 (HCC) 07/27/2023 Bilateral pneumonia 06/16/2022 COVID-19 06/16/2022 Hypothyroidism 06/16/2022 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 Cellulitis 05/18/2022 Nicotine use disorder 05/18/2022 Irritable bowel syndrome with diarrhea 03/07/2020 Microscopic hematuria 03/07/2020 Left retinal detachment 03/07/2020 Hyperglycemia 03/07/2020 Osteopenia of left femoral neck 03/07/2020 prison current use of anticoagulant therapy 03/07/2020 Seasonal allergies 03/07/2020 Chronic renal insufficiency, stage III (moderate) ([facility]) 03/07/2020 Major depression, single episode, in complete remission ([facility]) 03/07/2020 Gastroesophageal reflux disease without esophagitis 03/07/2020 Essential hypertension 03/07/2020 Pure hypercholesterolemia 03/07/2020 Overweight 03/07/2020 Psoriasis 03/07/2020 History of cerebrovascular accident 03/07/2020 Atrial fibrillation ([facility]) 03/07/2020 Chronic obstructive pulmonary disease ([facility]) 03/07/2020 Finger osteomyelitis, right ([facility]) 03/06/2020 Medical Precautions: No active isolations Proper PPE donned/doffed in accordance with facility standards. Fall Risk: Nugent Fall Risk Score: 60 (High Risk) Precautions/Restrictions: Lines/Drains/Airways: PIV Family/Caregiver Present: none Overall Cognitive Status: WFL Overall Orientation Status: Oriented x4 Social/Functional History Patient admitted from home. Lives With: Alone Type of Home: single family home Home Layout: Single Level Home Home Access: Stairs to Enter with Rails (# of stairs: 5) Bathroom Shower/Tub: Tub/Shower Combo and Walk in Shower Toilet: Standard Home Equipment: front wheeled walker Homemaking Responsibilities: Independent Receives Help From: None Active Coat Checker: Yes Prior Level of Function ADL Assistance: Independent Ambulation Assistance: Independent Device(s) used: Front wheeled walker Transfer Assistance: Independent Objective ADLs LE Dressing: Min Assist, Mod Assist Upper Extremity Assessment AROM: WFL PROM: Not assessed this session Strength: Exceptions: BUE 4/5 Vision: wears glasses at all times and and are being used during the eval and reports no vision in L eye Hearing: normal Bed Mobility Supine to sit: SBA Sit to supine: SBA Transfers/Functional Mobility Sit to stand: SBA Stand to sit: SBA Stand step: SBA Limited transfers d/t new, per pt, swelling in LLE. Nursing notified and in EOS to assess. Device(s) used: None AM-PAC AM-PAC Inpatient Daily Activity Raw Score: 21 ADL Inpatient CMS G-Code Modifier: CJ Plan Pt would benefit from skilled acute OT services to address Strengthening, ROM, Balance Training, Self-Care/ADL Training, Functional Mobility Training, Endurance Training, and Safety Education and Training. Frequency: 3x/week for 4 weeks Barriers: Pain, Impaired balance, Lower extremity weakness, and Decreased endurance Safety/Education Safety Safety Devices in place: All fall risk precautions in place, call light within reach, left in bed, nurse notified, and no alarms engaged upon entry Restraints: No Education Education Given To: patient Education Provided: OT Role, Plan of Care, Precautions, ADL Adaptive Strategies, Transfer Training, Energy Conservation, Equipment, Fall Prevention Education, Discharge Recommendations, and Benefits of Increasing Activity Education Method: Verbal Barriers to Learning: None Education Outcome: Verbalized Understanding Goals Patient Stated Goal: go home when medically able Encounter Problems Encounter Problems (Active) Bathing Patient will utilize adaptive techniques to bathe body mod indep. Start: 04/11/24 Expected End: 05/09/24 Cognition Patient will demonstrate good safety awareness with the use of FWW with no cues. Start: 04/11/24 Expected End: 05/09/24 Dressings Lower Extremities Patient will dress lower body mod indep. Start: 04/11/24 Expected End: 05/09/24 Grooming Patient will complete daily grooming tasks at sink SUP. Start: 04/11/24 Expected End: 05/09/24 Instrumental Activities of Daily Living Patient will verbalize use of 2 energy conservation techniques with no cues. Start: 04/11/24 Expected End: 05/09/24 Toileting Patient will complete toileting tasks mod indep. Start: 04/11/24 Expected End: 05/09/24 Therapy Time Individual Co-treatment Time In 1132 Time Out 1144 Minutes 12 NELLY Lantigua Patient's Occupational Therapy Plan of Care supervision is transferred to a [facility] Therapy Services Occupational Therapist. Goals and/or treatment plan was established in collaboration with patient/family/other representatives. Hospitalist Progress Note 04/11/2024 Subjective: Admit Date: 04/03/2024 PCP: Jared Evans MD Room#: N4-461/N4-461 B BRIEF HOSPITAL COURSE: 83-year-old woman with history of A-fib on Eliquis, tobacco use, hypertension, hyperlipidemia, asthma, hiatal hernia, GERD presented to [facility] on 04/03 with right leg pain, numbness, tingling causing difficulty ambulating. CTA of lower extremity showed severe atherosclerotic disease with bilateral superficial femoral artery occlusion and transferred to [facility]. She underwent venous thrombectomy with vascular surgery and was initiated on warfarin bridging with heparin. Gabriella followed and managed bridging anticoagulation. Pt reported feeling improvement from day to day. Interval History: Patient seen and examined at bedside this morning. Sleeping well and feeling improvement. She understands that she has to remain on the heparin gtt while waiting for therapeutic level of warfarin. Case and plan discussed with patient and bedside nurse. All questions answered. Adult diet Regular 24HR INTAKE/OUTPUT: Intake/Output Summary (Last 24 hours) at 04/11/2024 1110 Last data filed at 04/11/2024 1002 Gross per 24 hour Intake 2137.67 ml Output -- Net 2137.67 ml Past Medical History: Past Medical History: Diagnosis Date Asthma Essential hypertension 03/07/2020 GERD (gastroesophageal reflux disease) Hiatal hernia Pure hypercholesterolemia 03/07/2020 LABS: CBC: Recent Labs 04/09/24 0153 04/10/24 0601 04/11/24 0027 WBC 6.9 4.3 4.5 RBC 3.02* 2.86* 2.72* HGB 9.0* 8.6* 8.3* HCT 28.2* 26.0* 24.6* MCV 93.4 90.9 90.4 RDW 14.8 14.7 14.8 PLT 235 238 244 BMP: Recent Labs 04/09/24 0153 04/10/24 0601 04/11/24 0027 NA 136 136 134* K 4.4 3.8 4.0 CL 116* 111* 108* CO2 16* 21* 22 BUN 16 15 16 CREATININE 0.93 1.00 1.01 GLUCOSE 119* 101* 112* CALCIUM 8.9 9.0 8.8 ANIONGAP 5 3 4 LIVER PROFILE:No results for input(s): "AST", "ALT", "BILITOT", "ALKPHOS", "PROT" in the last 72 hours. No lab exists for component: LABALBU PT/INR: Recent Labs 04/09/24 0153 04/10/24 0601 04/11/24 0027 PROTIME 13.8* 17.7* 20.9* INR 1.2* 1.6* 1.9* CARDIAC ENZYMES: No results for input(s): "TROPONINI" in the last 72 hours. Procalcitonin: No results found for: "PROCAL" COVID-19 PCR: No results for input(s): "COVID19" in the last 72 hours. Objective: Vitals: BP 158/62 (BP Location: Right arm, Patient Position: Sitting) Pulse 101 Temp 36.1 C (96.9 F) (Temporal) Resp 16 Ht 5' 4" (1.626 m) Wt 159 lb 8 oz (72.3 kg) SpO2 97% BMI 27.38 kg/m Pulse Ox: SpO2 Av % Min: 97 % Max: 99 % Supplemental O2: O2 Flow Rate (L/min): 2 L/min Physical Exam Constitutional: Appearance: Normal appearance. HENT: Head: Normocephalic and atraumatic. Mouth/Throat: Mouth: Mucous membranes are moist. Eyes: Pupils: Pupils are equal, round, and reactive to light. Cardiovascular: Rate and Rhythm: Normal rate. Pulmonary: Effort: Pulmonary effort is normal. Breath sounds: Normal breath sounds. Abdominal: General: Bowel sounds are normal. Palpations: Abdomen is soft. 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 Right lower leg: Edema present. Left lower leg: Edema present. Skin: Capillary Refill: Capillary refill takes less than 2 seconds. Neurological: Mental Status: She is alert and oriented to person, place, and time. Medications: Scheduled PRN [id number]-[id number]-[id number], 1 puff, Inhalation, Daily influenza, 0.5 mL, IntraMUSCular, Once lisinopril, 5 mg, Oral, Daily pantoprazole, 40 mg, Oral, qAM AC warfarin, 5 mg, Oral, Once PRN medications: acetaminophen OR acetaminophen, albuterol, heparin, heparin, naloxone, ondansetron ODT OR ondansetron, oxyCODONE OR oxyCODONE, polyethylene glycol (PEG) 3350 Continuous heparin, 5-30 Units/kg/hr, Last Rate: 14 Units/kg/hr (04/11/24 1002) Assessment Data: (CAT1) Reviewed 3 or more notes from different specialty or health system (each=1). (CAT1) Reviewed 3 or more labs/studies ordered by another provider not previously counted (each=1, panels count as 1). (LOW: 2x CAT1 or independent historian MOD: 3x CAT1 or 1x CAT3 EXTENSIVE: 3x CAT1 and 1x CAT3) Acute, acute on chronic, unstable/uncontrolled chronic problems/diagnoses: Bilateral lower extremity DVTs, status post right lower extremity thrombectomy Stable chronic problems affecting care, new non-acute diagnoses: A-fib Tobacco use Hypertension Hyperlipidemia Asthma Hiatal hernia GERD Failed Eliquis Mild CKD Plan As a result of the above findings & factors, the following mgmt was pursued: -Continue heparin bridge to warfarin per Gabriella recommendations - anticipate 1 more day of bridge at a minimum -Resume home Trelegy (patient's family brought from home) -Continue lisinopril - Continue oxycodone for acute pain, discontinue IV pain medication - am labs, replace lytes prn - PT/OT/CM/SW - delirium precautions: increase activity - DVT prophylaxis: heparin and encourage ambulation Complexity: Acute illness or injury posing a threat to life or body function (HIGH). Risk: Admission to hospital-level care was considered or occurred (HIGH). Advance Directive: DNR-CCA Anticipated Discharge - Date - 04/12-? - Location - Home - Pending the following - Therapeutic INR Total time spent (which include face to face and non face to face encounters) : 32 minutes Toxic drug monitoring/narrow therapeutic index drug monitoring : # Drug name : Heparin # Route administered : IV # Method of monitoring : PTT Extended Emergency Contact Information Primary Emergency Contact: Damaris Villafana Mobile Relation: Friend Secondary Emergency Contact: José Miguel Castillo/ Fidel Mobile Relation: Child Jordin Roldan MD Division of Hospitalist Medicine tab ticketbroker [facility] Images from the original note were not included. PHYSICAL THERAPY [facility] Initial Evaluation Name/MRN: Mel Pop ([id number]) Evaluation Date: 04/11/2024 Date of : 1940 Admission Date: 04/03/2024 5:47 PM Age: 83 y.o. Room/Bed: N4-461/N4-461 B Discharge Recommendation: Home with Home health PT Assessment IMPRESSION: Pt admitted R leg pain, peripheral arterial disease, R leg weakness, atrial fibrillation. Pt stand by assist for functional mobility. Recommend home with home PT. Admitting Diagnosis: R leg pain, peripheral arterial disease, R leg weakness, atrial fibrillation, s/p mechanical thrombectomy 04/06 Prognosis: fair Performance Deficits /Impairments: Decreased Functional Mobility, Decreased ADL status, Decreased Strength, and Decreased Balance Decision Making: Low Complexity Subjective Pt up on bedside commode. Agreeable to PT. Pain: no c/o Past Medical History: Past Medical History: Diagnosis Date Asthma Essential hypertension 03/07/2020 GERD (gastroesophageal reflux disease) Hiatal hernia Pure hypercholesterolemia 03/07/2020 Past Surgical History: Past Surgical History: Procedure Laterality Date FINGER AMPUTATION Right 03/07/2020 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 HYSTERECTOMY ORTHOPEDIC SURGERY OTHER CELL (HISTORICAL) Right 04/06/2024 RIGHT LOWER EXTREMITY VENOUS MECHANICAL THROMBECTOMY - Right Admission Diagnosis: Patient Active Problem List Diagnosis Date Noted Peripheral arterial disease (HCC) 04/03/2024 Immunodeficiency due to conditions classified elsewhere ([facility]) 07/27/2023 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 ([facility]) 07/27/2023 Bilateral pneumonia 06/16/2022 COVID-19 06/16/2022 Hypothyroidism 06/16/2022 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[facility]) 06/16/2022 Cellulitis 05/18/2022 Nicotine use disorder 05/18/2022 Irritable bowel syndrome with diarrhea 03/07/2020 Microscopic hematuria 03/07/2020 Left retinal detachment 03/07/2020 Hyperglycemia 03/07/2020 Osteopenia of left femoral neck 03/07/2020 prison current use of anticoagulant therapy 03/07/2020 Seasonal allergies 03/07/2020 Chronic renal insufficiency, stage III (moderate) ([facility]) 03/07/2020 Major depression, single episode, in complete remission ([facility]) 03/07/2020 Gastroesophageal reflux disease without esophagitis 03/07/2020 Essential hypertension 03/07/2020 Pure hypercholesterolemia 03/07/2020 Overweight 03/07/2020 Psoriasis 03/07/2020 History of cerebrovascular accident 03/07/2020 Atrial fibrillation (HCC) 03/07/2020 Chronic obstructive pulmonary disease (HCC) 03/07/2020 Finger osteomyelitis, right (HCC) 03/06/2020 Medical Precautions: No active isolations Proper PPE donned/doffed in accordance with facility standards. Fall Risk: Nugent Fall Risk Score: 45 (High Risk) Precautions/Restrictions: Lines/Drains/Airways: IV Fall Precautions Family/Caregiver Present: none Overall Cognitive Status: Exceptions - Arousal/alertness: appropriate responses to stimuli - Following commands: follows one step commands consistently - Safety judgement: no bed alarm Overall Orientation Status: Oriented to Person Vision: not assessed this session Hearing: grossly WFL Social/Functional History Lives in mobile home, 3 entry steps, ambulates with walker, working with home PT Prior Level of Function ADL Assistance: Independent Ambulation Assistance: Independent Device(s) used: Front wheeled walker Transfer Assistance: Independent Objective Lower Extremity Assessment AROM: Exceptions: grossly WFL PROM: Not assessed this session Strength: Exceptions: observed at least 3/5 BLEs through functional mobility Balance: supervision for sitting balance. Assist to don socks. Static stance with stand by assist. Bed Mobility: Scooting: Independent Transfers Sit to stand: Supervision Stand to sit: Supervision Times 2 reps, FWW Ambulation Ambulation 1 Assistive device(s) used: Front wheeled walker Assist level: SBA Distance (ft): 14 Quality of gait: slower jenni, decreased step length, Outcome Measures AM-PAC How much HELP from another person do you currently need Turning from your back to your side while in a flat bed without using bedrails?: None Moving from lying on your back to sitting on the side of a flat bed without using bedrails?: None Moving to and from a bed to a chair (including a wheelchair)?: None Standing up from a chair using your arms (wheelchair or bedside chair)?: None Walking in a hospital room?: A Little Stair climbing assessed?: No AM-PAC Inpatient Mobility Raw Score (No Stairs) : 19 JH-HLM JH-HLM Score: Walked 10 steps or more (i.e. walked to restroom) Plan Pt would benefit from skilled acute PT services to address Strengthening, Gait Training, Balance Training, Self-Care/ADL Training, Functional Mobility Training, Safety Education and Training, and Stair Training. Frequency: 2x/week during current hospital admission or until additional recommendations are made Barriers: Safety/Education Safety Safety Devices in place: call light within reach, left in chair, and no alarms engaged upon entry Restraints: No Education Education Given To: patient Education Provided: PT Role Education Method: Verbal Barriers to Learning: Education Outcome: Goals Patient Stated Goal: to get better Encounter Problems Encounter Problems (Active) Mobility Patient will ambulate 50 feet with modified independence and rolling walker in order to improve safety and independence with mobility. Start: 04/11/24 Expected End: 05/09/24 Patient will ascend and descend entry stairs with least restrictive device and modified independence in order to safely negotiate home. Start: 04/11/24 Expected End: 05/09/24 Pain - Adult Transfers Patient will perform bed mobility with independence in order to improve independence and prepare for out of bed mobility. Start: 04/11/24 Expected End: 05/09/24 Patient will complete sit to stand transfer with independence to walker in order to improve safety and prepare for out of bed mobility. Start: 04/11/24 Expected End: 05/09/24 Therapy Time Individual Co-treatment Time In 0755 Time Out 0812 Minutes 17 Christin Gu PT Patient's Physical Therapy Plan of Care supervision is transferred to a [facility] Therapy Services Physical Therapist. Goals and/or treatment plan was established in collaboration with patient/family/other representatives. [facility] Anticoagulation Management Service ([facility]) Inpatient Warfarin Consult HPI: Mel Pop is a 83 y.o. female admitted on 04/03/2024 for Peripheral arterial disease (HCC). Past Medical History: Diagnosis Date Asthma Essential hypertension 03/07/2020 GERD (gastroesophageal reflux disease) Hiatal hernia Pure hypercholesterolemia 03/07/2020 Patient is newly referred to the [facility] clinic for warfarin management. Pt was referred by Anthony Yee APRN - SHAMIKA. Pt is on warfarin for DVT and has a goal INR 2.0 - 3.0. Patient also has a history of afib. Duration of therapy= likely indefinite. Reason for warfarin instead of DOAC: Eliquis failure PCP: Jared Evans MD S/sx of bleeding= no active signs of bleeding noted, did have hgb drop post OR 04/06 Interacting medications= therapeutic heparin infusion Labs: Recent Labs 04/09/24 0153 04/10/24 0601 04/11/24 0027 HGB 9.0* 8.6* 8.3* HCT 28.2* 26.0* 24.6* PLT 235 238 244 Recent Labs 04/11/24 0027 INR 1.9* Date INR Dose 04/11 1.9 5mg 04/10 1.6 5mg 04/09 1.2 7.5mg 04/08 1.0 5 mg 04/07 1.0 5 mg 04/06 1.0 2.5 mg 04/05 1.1 Held for OR 04/04 --- 2.5 mg 04/03 1.0 --- Assessment/Plan: 1. INR is subtherapeutic due to new start warfarin but now trending up appropriately. Anticipate further increase in INR tomorrow so will continue warfarin 5mg today. 2. Will monitor for s/s of bleeding and drug interactions and adjust dose accordingly. 3. Will facilitate [facility] follow-up upon discharge. Patient is agreeable to [facility] follow up. 4. Provided warfarin education. Marybeth Rahman RPh, PharmD [facility] Consult Service is available daily [phone] via [employer]. If no response, please page [phone]. Hospitalist Progress Note 04/10/2024 Subjective: Admit Date: 04/03/2024 PCP: Jared Evans MD Room#: N4-411/N4-768 B BRIEF HOSPITAL COURSE: 83-year-old woman with history of A-fib on Eliquis, tobacco use, hypertension, hyperlipidemia, asthma, hiatal hernia, GERD presented to [facility] on 04/03 with right leg pain, numbness, tingling causing difficulty ambulating. CTA of lower extremity showed severe atherosclerotic disease with bilateral superficial femoral artery occlusion and transferred to [facility]. She underwent venous thrombectomy with vascular surgery and was initiated on warfarin bridging with heparin.. Interval History: Patient seen and examined at bedside this morning. Reports low bit of tingling sensation in the right lower extremity, but otherwise is feeling improved. No overnight issues. Case and plan discussed with patient and bedside nurse. All questions answered. Adult diet Regular 24HR INTAKE/OUTPUT: Intake/Output Summary (Last 24 hours) at 04/10/2024 1351 Last data filed at 04/10/2024 1127 Gross per 24 hour Intake 1527.57 ml Output 2900 ml Net -1372.43 ml Past Medical History: Past Medical History: Diagnosis Date Asthma Essential hypertension 03/07/2020 GERD (gastroesophageal reflux disease) Hiatal hernia Pure hypercholesterolemia 03/07/2020 LABS: CBC: Recent Labs 04/08/24 0020 04/09/24 0153 04/10/24 0601 WBC 7.5 6.9 4.3 RBC 2.85* 3.02* 2.86* HGB 8.6* 9.0* 8.6* HCT 27.0* 28.2* 26.0* MCV 94.7 93.4 90.9 RDW 14.8 14.8 14.7 PLT 223 235 238 BMP: Recent Labs 04/08/24 00204/09/24 0153 04/10/24 0601 NA 135 136 136 K 4.5 4.4 3.8 CL 113* 116* 111* CO2 17* 16* 21* BUN 18* 16 15 CREATININE 0.98 0.93 1.00 GLUCOSE 116* 119* 101* CALCIUM 8.9 8.9 9.0 ANIONGAP 5 5 3 LIVER PROFILE:No results for input(s): "AST", "ALT", "BILITOT", "ALKPHOS", "PROT" in the last 72 hours. No lab exists for component: LABALBU PT/INR: Recent Labs 04/08/24 0020 04/09/24 0153 04/10/24 0601 PROTIME 11.2 13.8* 17.7* INR 1.0 1.2* 1.6* CARDIAC ENZYMES: No results for input(s): "TROPONINI" in the last 72 hours. Procalcitonin: No results found for: "PROCAL" COVID-19 PCR: No results for input(s): "COVID19" in the last 72 hours. Objective: Vitals: BP 142/67 (BP Location: Left arm) Pulse 79 Temp 36.7 C (98.1 F) (Temporal) Resp 16 Ht 5' 4" (1.626 m) Wt 159 lb 8 oz (72.3 kg) SpO2 96% BMI 27.38 kg/m Pulse Ox: SpO2 Av.5 % Min: 95 % Max: 96 % Supplemental O2: O2 Flow Rate (L/min): 2 L/min Physical Exam Constitutional: Appearance: Normal appearance. HENT: Head: Normocephalic and atraumatic. Mouth/Throat: Mouth: Mucous membranes are moist. Eyes: Pupils: Pupils are equal, round, and reactive to light. Cardiovascular: Rate and Rhythm: Normal rate. Pulmonary: Effort: Pulmonary effort is normal. Breath sounds: Normal breath sounds. Abdominal: General: Bowel sounds are normal. Palpations: Abdomen is soft. Musculoskeletal: Right lower leg: Edema present. Left lower leg: Edema present. Skin: Capillary Refill: Capillary refill takes less than 2 seconds. Neurological: Mental Status: She is alert and oriented to person, place, and time. Medications: Scheduled PRN influenza, 0.5 mL, IntraMUSCular, Once lisinopril, 5 mg, Oral, Daily [START ON 04/11/2024] Non-Formulary Medication, 1 puff, Inhalation, Daily pantoprazole, 40 mg, Oral, qAM AC warfarin, 5 mg, Oral, Once PRN medications: acetaminophen OR acetaminophen, albuterol, heparin, heparin, HYDROmorphone, naloxone, ondansetron ODT OR ondansetron, oxyCODONE OR oxyCODONE, polyethylene glycol (PEG) 3350 Continuous heparin, 5-30 Units/kg/hr, Last Rate: 14 Units/kg/hr (04/10/24 1127) Assessment Data: (CAT1) Reviewed 3 or more notes from different specialty or health system (each=1). (CAT1) Reviewed 3 or more labs/studies ordered by another provider not previously counted (each=1, panels count as 1). (LOW: 2x CAT1 or independent historian MOD: 3x CAT1 or 1x CAT3 EXTENSIVE: 3x CAT1 and 1x CAT3) Acute, acute on chronic, unstable/uncontrolled chronic problems/diagnoses: Bilateral lower extremity DVTs, status post right lower extremity thrombectomy Stable chronic problems affecting care, new non-acute diagnoses: A-fib Tobacco use Hypertension Hyperlipidemia Asthma Hiatal hernia GERD Failed Eliquis Mild CKD Plan As a result of the above findings & factors, the following mgmt was pursued: -Continue heparin bridge to warfarin -Resume home Trelegy (patient's family brought from home) -Continue lisinopril - Continue oxycodone for acute pain, discontinue IV pain medication - am labs, replace lytes prn - PT/OT/CM/SW - delirium precautions: increase activity - DVT prophylaxis: heparin and encourage ambulation Complexity: Acute illness or injury posing a threat to life or body function (HIGH). Risk: Admission to hospital-level care was considered or occurred (HIGH). Advance Directive: DNR-CCA Anticipated Discharge - Date - 04/12-? - Location - Home - Pending the following - Therapeutic INR Total time spent (which include face to face and non face to face encounters) : 32 minutes Toxic drug monitoring/narrow therapeutic index drug monitoring : # Drug name : Heparin # Route administered : IV # Method of monitoring : PTT Extended Emergency Contact Information Primary Emergency Contact: Damaris Villafana Mobile Relation: Friend Secondary Emergency Contact: SanchezJosé Miguel/ Fidel Mobile Relation: Child Jordin Roldan MD Division of Hospitalist Medicine Acute care [facility] Nutrition update completed. Chart reviewed. Patient to be monitored and followed by the diet orthodontic laboratory technician. FADI Farrar [facility] Anticoagulation Management Service ([facility]) Inpatient Warfarin Consult HPI: Mel Pop is a 83 y.o. female admitted on 04/03/2024 for Peripheral arterial disease (HCC). Past Medical History: Diagnosis Date Asthma Essential hypertension 03/07/2020 GERD (gastroesophageal reflux disease) Hiatal hernia Pure hypercholesterolemia 03/07/2020 Patient is newly referred to the [facility] clinic for warfarin management. Pt was referred by Anthony Yee APRN - [facility]. Pt is on warfarin for DVT and has a goal INR 2.0 - 3.0. Patient also has a history of afib. Duration of therapy= likely indefinite. Reason for warfarin instead of DOAC: Eliquis failure PCP: Jared Evans MD S/sx of bleeding= no active signs of bleeding noted, did have hgb drop post OR 04/06 Interacting medications= therapeutic heparin infusion Labs: Recent Labs 04/08/24 0020 04/09/24 0153 04/10/24 0601 HGB 8.6* 9.0* 8.6* HCT 27.0* 28.2* 26.0* PLT 223 235 238 Recent Labs 04/10/24 0601 INR 1.6* Date INR Dose 04/10 1.6 5mg 04/09 1.2 7.5mg 04/08 1.0 5 mg 04/07 1.0 5 mg 04/06 1.0 2.5 mg 04/05 1.1 Held for OR 04/04 --- 2.5 mg 04/03 1.0 --- Assessment/Plan: 1. INR is subtherapeutic due to new start warfarin but now trending up appropriately. Anticipate further increase in INR tomorrow from 7.5mg dose given yesterday so will give warfarin 5mg today. 2. Will monitor for s/s of bleeding and drug interactions and adjust dose accordingly. 3. Will determine if pt is agreeable to [facility] follow-up. 4. Will provide warfarin education. Marybeth Rahman RPh, PharmD [facility] Consult Service is available daily [phone] via [employer]. If no response, please page [phone]. Hospitalist Progress Note 04/09/2024 Assessment/Plan: Data: (CAT1) Reviewed 2 notes from different specialty or health system (each=1). (CAT1) Reviewed 2 labs/studies ordered by another provider not previously counted (each=1, panels count as 1). 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 Heme-onc consulted, patient started on Coumadin -Appreciate pharmacy, on Coumadin bridge -Strongly recommend smoking cessation -Pain control -Stop IVF, give IV Lasix - PT/OT/CM/SW - delirium precautions: increase activity - DVT prophylaxis: encourage ambulation and already anticoagulated Discharge Disposition: Anticipate DC pending clinical Coumadin bridge, therapy evaluations Total time spent (which include face to face and non face to face encounters) : 36 minutes Complexity: Acute illness with systemic symptoms (MOD). Multiple stable chronic illnesses (MOD). Risk: Admission to hospital-level care was considered or occurred (HIGH). Advance Directive: DNR-CCA Toxic drug monitoring/narrow therapeutic index drug monitoring : # Drug name : # Route administered: # Method of monitoring: Subjective: Admit Date: 04/03/2024 PCP: Jared Evans MD Room#: N4-461/N4-461 B Brief Hospital course: Patient is an 83-year-old female with history of A-fib on Eliquis, significant tobacco use, HTN, HLD, asthma, hiatal hernia, GERD who presented to [place] 04/03 with right leg pain, numbness, tingling causing difficulty ambulating. CTA of LE, showing severe LE atherosclerotic disease with bilateral superficial femoral artery occlusion, and was transferred to [facility] for admission. Interval History: Mild shortness of breath today Fluids stopped, CXR with congestion. Given Lasix In good spirits INR 1.2 Adult diet Regular 24HR INTAKE/OUTPUT: Intake/Output Summary (Last 24 hours) at 04/09/2024 1414 Last data filed at 04/09/2024 0630 Gross per 24 hour Intake 8388.67 ml Output -- Net 8388.67 ml Past Medical History: Past Medical History: Diagnosis Date Asthma Essential hypertension 03/07/2020 GERD (gastroesophageal reflux disease) Hiatal hernia Pure hypercholesterolemia 03/07/2020 LABS: CBC: Recent Labs 04/07/24 0251 04/08/24 0020 04/09/24 0153 WBC 4.0 7.5 6.9 RBC 2.86* 2.85* 3.02* HGB 8.6* 8.6* 9.0* HCT 27.0* 27.0* 28.2* MCV 94.4 94.7 93.4 RDW 14.3 14.8 14.8 PLT 202 223 235 BMP: Recent Labs 04/07/24 02504/08/24 0020 04/09/24 0153 NA 136 135 136 K 4.7 4.5 4.4 CL 115* 113* 116* CO2 17* 17* 16* BUN 16 18* 16 CREATININE 0.90 0.98 0.93 GLUCOSE 139* 116* 119* CALCIUM 8.8 8.9 8.9 ANIONGAP 4 5 5 LIVER PROFILE: No results for input(s): "AST", "ALT", "BILITOT", "ALKPHOS", "PROT" in the last 72 hours. No lab exists for component: LABALBU PT/INR: Recent Labs 04/07/24 02504/08/24 0020 04/09/24 0153 PROTIME 11.1 11.2 13.8* INR 1.0 1.0 1.2* CARDIAC ENZYMES: No results for input(s): "TROPONINI" in the last 72 hours. Procalcitonin: No results found for: "PROCAL" COVID-19 PCR: No results for input(s): "COVID19" in the last 72 hours. Objective: Vitals: BP (!) 169/82 (BP Location: Left arm, Patient Position: Lying) Pulse 77 Temp 36.6 C (97.9 F) (Temporal) Resp 16 Ht 5' 4" (1.626 m) Wt 159 lb 8 oz (72.3 kg) SpO2 99% BMI 27.38 kg/m Pulse Ox: SpO2 Av % Min: 84 % Max: 99 % Supplemental O2: O2 Flow Rate (L/min): 2 L/min Physical Exam Vitals and nursing note reviewed. Constitutional: Appearance: Normal appearance. Cardiovascular: Rate and Rhythm: Normal rate. Pulmonary: Effort: Pulmonary effort is normal. Abdominal: General: Abdomen is flat. Neurological: Mental Status: She is alert. Psychiatric: Mood and Affect: Mood normal. Behavior: Behavior normal. Medications: influenza, 0.5 mL, IntraMUSCular, Once lisinopril, 5 mg, Oral, Daily mometasone-formoterol, 2 puff, Inhalation, BID pantoprazole, 40 mg, Oral, qAM AC tiotropium, 2 puff, Inhalation, Daily warfarin, 7.5 mg, Oral, Once Extended Emergency Contact Information Primary Emergency Contact: Damaris Villafana Mobile Relation: Friend Secondary Emergency Contact: José Miguel Castillo/ Fidel Mobile Relation: Child Robert Vigil MD Division of Hospitalist Medicine [facility] Anticoagulation Management Service ([facility]) Inpatient Warfarin Consult HPI: Mel Pop is a 83 y.o. female admitted on 04/03/2024 for Peripheral arterial disease (HCC). Past Medical History: Diagnosis Date Asthma Essential hypertension 03/07/2020 GERD (gastroesophageal reflux disease) Hiatal hernia Pure hypercholesterolemia 03/07/2020 Patient is newly referred to the [facility] clinic for warfarin management. Pt was referred by SEBASTIAN Tate CNP. Pt is on warfarin for DVT and has a goal INR 2.0 - 3.0. Patient also has a history of afib. Duration of therapy= likely indefinite. Reason for warfarin instead of DOAC: Eliquis failure PCP: Jared Evans MD S/sx of bleeding= no active signs of bleeding noted, did have hgb drop post OR 04/06 Interacting medications= therapeutic heparin infusion Labs: Recent Labs 04/07/24 0251 04/08/24 0020 04/09/24 0153 HGB 8.6* 8.6* 9.0* HCT 27.0* 27.0* 28.2* PLT 202 223 235 Recent Labs 04/09/24 0153 INR 1.2* Date INR Dose 04/09 1.2 7.5mg 04/08 1.0 5 mg 04/07 1.0 5 mg 04/06 1.0 2.5 mg 04/05 1.1 Held for OR 04/04 --- 2.5 mg 04/03 1.0 --- Assessment/Plan: 1. INR is subtherapeutic due to new start warfarin. Will further increase warfarin dose to 7.5mg today to attempt to get INR moving faster. 2. Will monitor for s/s of bleeding and drug interactions and adjust dose accordingly. 3. Will determine if pt is agreeable to [facility] follow-up. 4. Will provide warfarin education. Marybeth Rahman RPh, PharmD [facility] Consult Service is available daily [phone] via [employer]. If no response, please page [phone]. Hospitalist Progress Note 04/08/2024 Assessment/Plan: Data: (CAT1) Reviewed 2 notes from different specialty or health system (each=1). (CAT1) Reviewed 2 labs/studies ordered by another provider not previously counted (each=1, panels count as 1). 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 Heme-onc consulted, patient started on Coumadin -Appreciate pharmacy, on Coumadin bridge -Strongly recommend smoking cessation -Pain control - PT/OT/CM/SW - delirium precautions: increase activity - DVT prophylaxis: encourage ambulation and already anticoagulated Discharge Disposition: Anticipate DC pending clinical Coumadin bridge, therapy evaluations Total time spent (which include face to face and non face to face encounters) : 36 minutes Complexity: Acute illness with systemic symptoms (MOD). Multiple stable chronic illnesses (MOD). Risk: Admission to hospital-level care was considered or occurred (HIGH). Advance Directive: DNR-CCA Toxic drug monitoring/narrow therapeutic index drug monitoring : # Drug name : # Route administered: # Method of monitoring: Subjective: Admit Date: 04/03/2024 PCP: Jared Evans MD Room#: N4-461/N4461 B Brief Hospital course: Patient is an 83-year-old female with history of A-fib on Eliquis, significant tobacco use, HTN, HLD, asthma, hiatal hernia, GERD who presented to [place] 04/03 with right leg pain, numbness, tingling causing difficulty ambulating. CTA of LE, showing severe LE atherosclerotic disease with bilateral superficial femoral artery occlusion, and was transferred to [facility] for admission. Interval History: Pain continues to be improved INR still subtherapeutic Good appetite Adult diet Regular 24HR INTAKE/OUTPUT: No intake or output data in the 24 hours ending 04/08/24 1420 Past Medical History: Past Medical History: Diagnosis Date Asthma Essential hypertension 03/07/2020 GERD (gastroesophageal reflux disease) Hiatal hernia Pure hypercholesterolemia 03/07/2020 LABS: CBC: Recent Labs 04/06/24 0711 04/07/24 0251 04/08/24 0020 WBC 4.5 4.0 7.5 RBC 3.20* 2.86* 2.85* HGB 9.7* 8.6* 8.6* HCT 29.8* 27.0* 27.0* MCV 93.1 94.4 94.7 RDW 14.3 14.3 14.8 PLT 207 202 223 BMP: Recent Labs 04/06/24 0711 04/07/24 0251 04/08/24 0020 NA 135 136 135 K 4.6 4.7 4.5 CL 114* 115* 113* CO2 18* 17* 17* BUN 17 16 18* CREATININE 0.96 0.90 0.98 GLUCOSE 97 139* 116* CALCIUM 8.9 8.8 8.9 ANIONGAP 4 4 5 LIVER PROFILE: No results for input(s): "AST", "ALT", "BILITOT", "ALKPHOS", "PROT" in the last 72 hours. No lab exists for component: LABALBU PT/INR: Recent Labs 04/05/24 2307 04/07/24 0251 04/08/24 0020 PROTIME 11.4 11.1 11.2 INR 1.0 1.0 1.0 CARDIAC ENZYMES: No results for input(s): "TROPONINI" in the last 72 hours. Procalcitonin: No results found for: "PROCAL" COVID-19 PCR: No results for input(s): "COVID19" in the last 72 hours. Objective: Vitals: BP 154/70 (BP Location: Left arm, Patient Position: Sitting) Pulse 76 Temp 36.7 C (98.1 F) (Temporal) Resp 16 Ht 5' 4" (1.626 m) Wt 159 lb 8 oz (72.3 kg) SpO2 92% BMI 27.38 kg/m Pulse Ox: SpO2 Av.5 % Min: 91 % Max: 92 % Supplemental O2: O2 Flow Rate (L/min): 2 L/min Physical Exam Vitals and nursing note reviewed. Constitutional: Appearance: Normal appearance. Cardiovascular: Rate and Rhythm: Normal rate. Pulmonary: Effort: Pulmonary effort is normal. Abdominal: General: Abdomen is flat. Neurological: Mental Status: She is alert. Psychiatric: Mood and Affect: Mood normal. Behavior: Behavior normal. Medications: influenza, 0.5 mL, IntraMUSCular, Once lisinopril, 5 mg, Oral, Daily mometasone-formoterol, 2 puff, Inhalation, BID pantoprazole, 40 mg, Oral, qAM AC tiotropium, 2 puff, Inhalation, Daily warfarin, 5 mg, Oral, Once Extended Emergency Contact Information Primary Emergency Contact: Damaris Villafana Mobile Relation: Friend Secondary Emergency Contact: José Miguel Castillo/ Fidel Mobile Relation: Child Robert Vigil MD Division of Hospitalist Medicine [facility] Anticoagulation Management Service ([facility]) Inpatient Warfarin Consult HPI: Mel Pop is a 83 y.o. female admitted on 04/03/2024 for Peripheral arterial disease (HCC). Past Medical History: Diagnosis Date Asthma Essential hypertension 03/07/2020 GERD (gastroesophageal reflux disease) Hiatal hernia Pure hypercholesterolemia 03/07/2020 Patient is newly referred to the [facility] clinic for warfarin management. Pt was referred by Anthony Yee APRN - [facility]. Pt is on warfarin for DVT and has a goal INR 2.0 - 3.0. Patient also has a history of afib. Duration of therapy= likely indefinite. Reason for warfarin instead of DOAC: Eliquis failure PCP: Jared Evans MD S/sx of bleeding= no active signs of bleeding noted, did have hgb drop post OR 04/06 Interacting medications= therapeutic heparin infusion Labs: Recent Labs 04/06/24 0711 04/07/24 0251 04/08/24 0020 HGB 9.7* 8.6* 8.6* HCT 29.8* 27.0* 27.0* PLT 207 202 223 Recent Labs 04/08/24 0020 INR 1.0 Date INR Dose 04/08 1.0 5 mg 04/07 1.0 5 mg 04/06 1.0 2.5 mg 04/05 1.1 Held for OR 04/04 --- 2.5 mg 04/03 1.0 --- Assessment/Plan: 1. INR is subtherapeutic due to new start warfarin, day #4. Will continue warfarin 5 mg x 1 today and if no meaningful increase in INR again, will increase dose. 2. Will monitor for s/s of bleeding and drug interactions and adjust dose accordingly. 3. Will determine if pt is agreeable to [facility] follow-up. 4. Will provide warfarin education. Michelle Lugo RPh, PharmD [facility] Consult Service is available daily [phone] via [employer]. If no response, please page [phone]. Hospitalist Progress Note 04/07/2024 Assessment/Plan: Data: (CAT1) Reviewed 2 notes from different specialty or health system (each=1). (CAT1) Reviewed 2 labs/studies ordered by another provider not previously counted (each=1, panels count as 1). 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 Heme-onc consulted, patient started on Coumadin -Appreciate pharmacy, on Coumadin bridge -Strongly recommend smoking cessation -Pain control - PT/OT/CM/SW - delirium precautions: increase activity - DVT prophylaxis: encourage ambulation and already anticoagulated Discharge Disposition: Anticipate DC pending clinical improvement and pain., Product Transfer Pumper recommendations, Coumadin bridge with heparin Total time spent (which include face to face and non face to face encounters) : 36 minutes D/W TCC, RN Complexity: Acute illness with systemic symptoms (MOD). Multiple stable chronic illnesses (MOD). Risk: Admission to hospital-level care was considered or occurred (HIGH). Advance Directive: DNR-CCA Toxic drug monitoring/narrow therapeutic index drug monitoring : # Drug name : # Route administered: # Method of monitoring: Subjective: Admit Date: 04/03/2024 PCP: Jared Evans MD Room#: N4-461/N4-461 B Brief Hospital course: Patient is an 83-year-old female with history of A-fib on Eliquis, significant tobacco use, HTN, HLD, asthma, hiatal hernia, GERD who presented to [place] 04/03 with right leg pain, numbness, tingling causing difficulty ambulating. CTA of LE, showing severe LE atherosclerotic disease with bilateral superficial femoral artery occlusion, and was transferred to [facility] for admission. Interval History: Pain improved today, after surgery In better spirits Was able to stand on legs Adult diet Regular 24HR INTAKE/OUTPUT: No intake or output data in the 24 hours ending 04/07/24 1805 Past Medical History: Past Medical History: Diagnosis Date Asthma Essential hypertension 03/07/2020 GERD (gastroesophageal reflux disease) Hiatal hernia Pure hypercholesterolemia 03/07/2020 LABS: CBC: Recent Labs 04/05/24 0739 04/06/24 0711 04/07/24 0251 WBC 6.1 4.5 4.0 RBC 3.45* 3.20* 2.86* HGB 10.6* 9.7* 8.6* HCT 32.3* 29.8* 27.0* MCV 93.6 93.1 94.4 RDW 14.4 14.3 14.3 PLT 204 207 202 BMP: Recent Labs 04/05/24 0739 04/06/24 0711 04/07/24 0251 NA 133* 135 136 K 4.8 4.6 4.7 CL 113* 114* 115* CO2 17* 18* 17* BUN 25* 17 16 CREATININE 1.12* 0.96 0.90 GLUCOSE 102* 97 139* CALCIUM 8.7 8.9 8.8 ANIONGAP 3 4 4 LIVER PROFILE: No results for input(s): "AST", "ALT", "BILITOT", "ALKPHOS", "PROT" in the last 72 hours. No lab exists for component: LABALBU PT/INR: Recent Labs 04/05/24 0739 04/05/24 2307 04/07/24 0251 PROTIME 11.9 11.4 11.1 INR 1.1 1.0 1.0 CARDIAC ENZYMES: No results for input(s): "TROPONINI" in the last 72 hours. Procalcitonin: No results found for: "PROCAL" COVID-19 PCR: No results for input(s): "COVID19" in the last 72 hours. Objective: Vitals: BP 121/59 (BP Location: Right arm, Patient Position: Sitting) Pulse 65 Temp 36.5 C (97.7 F) (Temporal) Resp 16 Ht 5' 4" (1.626 m) Wt 159 lb 8 oz (72.3 kg) SpO2 94% BMI 27.38 kg/m Pulse Ox: SpO2 Av.5 % Min: 89 % Max: 94 % Supplemental O2: O2 Flow Rate (L/min): 2 L/min Physical Exam Vitals and nursing note reviewed. Constitutional: Appearance: Normal appearance. Cardiovascular: Rate and Rhythm: Normal rate. Pulmonary: Effort: Pulmonary effort is normal. Abdominal: General: Abdomen is flat. Neurological: Mental Status: She is alert. Psychiatric: Mood and Affect: Mood normal. Behavior: Behavior normal. Medications: influenza, 0.5 mL, IntraMUSCular, Once lisinopril, 5 mg, Oral, Daily mometasone-formoterol, 2 puff, Inhalation, BID pantoprazole, 40 mg, Oral, qAM AC tiotropium, 2 puff, Inhalation, Daily Extended Emergency Contact Information Primary Emergency Contact: Damaris Villafana Mobile Relation: Friend Secondary Emergency Contact: José Miguel Castillo/ Fidel Mobile Relation: Child Robert Vigil MD Division of Hospitalist Medicine [facility] Anticoagulation Management Service ([facility]) Inpatient Warfarin Consult HPI: Mel Pop is a 83 y.o. female admitted on 04/03/2024 for Peripheral arterial disease (HCC). Past Medical History: Diagnosis Date Asthma Essential hypertension 03/07/2020 GERD (gastroesophageal reflux disease) Hiatal hernia Pure hypercholesterolemia 03/07/2020 Patient is newly referred to the [facility] for warfarin management. Pt was referred by SEBASTIAN Tate CNP. Pt is on warfarin for DVT and has a goal INR 2.0 - 3.0. Patient also has a history of afib. Duration of therapy= likely indefinite. Reason for warfarin instead of DOAC: Eliquis failure PCP: Jared Evans MD S/sx of bleeding= no active signs of bleeding noted, did have hgb drop post OR 04/06 Interacting medications= therapeutic heparin infusion Labs: Recent Labs 04/05/24 0739 04/06/24 0711 04/07/24 0251 HGB 10.6* 9.7* 8.6* HCT 32.3* 29.8* 27.0* PLT 204 207 202 Recent Labs 04/07/24 0251 INR 1.0 Date INR Dose 04/07 1.0 5 mg 04/06 1.0 2.5 mg 04/05 1.1 Held for OR 04/04 --- 2.5 mg 04/03 1.0 --- Assessment/Plan: 1. INR is subtherapeutic due to new start warfarin, day #3. No meaningful increase in INR after two doses. Will increase warfarin to 5 mg x 1 today. 2. Will monitor for s/s of bleeding and drug interactions and adjust dose accordingly. 3. Will determine if pt is agreeable to [facility] follow-up. 4. Will provide warfarin education. Michelle Lugo RPh, PharmD [facility] Consult Service is available daily [phone] via [employer]. If no response, please page [phone]. Department of General Surgery Daily Progress Note Vascular Service ADMIT DATE: 04/03/2024 TODAY'S DATE: 04/07/2024 SUBJECTIVE: NAEON. POD1 RLE venous thrombectomy. Feeling better this am. Edema much better OBJECTIVE: VITALS: BP 137/63 (BP Location: Right arm, Patient Position: Sitting) Pulse 81 Temp 36.8 C (98.3 F) (Temporal) Resp 14 Ht 1.626 m (5' 4") Wt 72.3 kg (159 lb 8 oz) SpO2 (!) 89% BMI 27.38 kg/m INTAKE/OUTPUT: I/O last 3 completed shifts: In: 576.4 (8 mL/kg) [I.V.:572.4 (7.9 mL/kg); IV Piggyback:4] Out: 300 (4.1 mL/kg) [Blood:300] Weight: 72.3 kg No intake/output data recorded. PHYSICAL EXAM: Gen: NAD, A&Ox3 Heart: RRR Vasc: Weak right PT DS Lungs: symmetric chest rise, normal work of breathing Abd: soft, non tender, non distended. Non rigid. Ext: no c/c/e no gross deformities Skin: R posterior knee wound with hemostatic stitch - removed LABS CBC: Recent Labs 04/04/24 0608 04/05/24 0739 04/06/24 0711 WBC 8.1 6.1 4.5 HGB 12.5 10.6* 9.7* HCT 38.8 32.3* 29.8* PLT 266 204 207 BMP: Recent Labs 04/04/24 0608 04/05/24 0739 04/06/24 0711 NA 135 133* 135 K 4.5 4.8 4.6 CL 110* 113* 114* CO2 18* 17* 18* BUN 30* 25* 17 CREATININE 1.45* 1.12* 0.96 GLUCOSE 100 102* 97 Hepatic: No results for input(s): "AST", "ALT", "BILITOT", "ALKPHOS" in the last 72 hours. No lab exists for component: "ALB" Current Inpatient Medications Scheduled Meds:influenza, 0.5 mL, IntraMUSCular, Once lisinopril, 5 mg, Oral, Daily mometasone-formoterol, 2 puff, Inhalation, BID pantoprazole, 40 mg, Oral, qAM AC tiotropium, 2 puff, Inhalation, Daily Continuous Infusions:heparin, 5-30 Units/kg/hr, Last Rate: 14 Units/kg/hr (04/06/24 1856) sodium chloride, 125 mL/hr, Last Rate: 125 mL/hr (04/06/24 1205) PRN Meds:PRN medications: acetaminophen OR acetaminophen, albuterol, heparin, heparin, HYDROmorphone, naloxone, ondansetron ODT OR ondansetron, oxyCODONE OR oxyCODONE, polyethylene glycol (PEG) 3350 ASSESSMENT AND PLAN: 83 y.o. female with acute right lower extremity pain. At this time it would seem that her new proximal right femoral DVT is the cause of this, as opposed to her diffuse atherosclerotic disease. S/p RLE venous thrombectomy 04/06. - Ok to resume heparin to coumadin bridge - PRN ARTURO wrap support to help with edema, left off this am - OOB and ambulate - Vascular will sign off, follow-up 2wk placed in chart for Dr Blankens[facility] Sarah MD PGY5, General Surgery Pager #[phone] CDI Query Response: Acute thrombus within the inferior vena cava filter is associated with the filter. Hospitalist Progress Note 04/06/2024 Assessment/Plan: Data: (CAT1) Reviewed 2 notes from different specialty or health system (each=1). (CAT1) Reviewed 2 labs/studies ordered by another provider not previously counted (each=1, panels count as 1). 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 Heme-onc consulted, patient started on Coumadin -Appreciate pharmacy, on Coumadin bridge -Strongly recommend smoking cessation -Pain control - PT/OT/CM/SW - delirium precautions: increase activity - DVT prophylaxis: encourage ambulation and already anticoagulated Discharge Disposition: Anticipate DC pending clinical improvement and pain., Product Transfer Pumper recommendations, Coumadin bridge with heparin Total time spent (which include face to face and non face to face encounters) : 36 minutes D/W TCC, RN Complexity: Acute illness with systemic symptoms (MOD). Multiple stable chronic illnesses (MOD). Risk: Admission to hospital-level care was considered or occurred (HIGH). Advance Directive: DNR-CCA Toxic drug monitoring/narrow therapeutic index drug monitoring : # Drug name : # Route administered: # Method of monitoring: Subjective: Admit Date: 04/03/2024 PCP: Jared Evans MD Room#: N4-461/N4-461 B Brief Hospital course: Patient is an 83-year-old female with history of A-fib on Eliquis, significant tobacco use, HTN, HLD, asthma, hiatal hernia, GERD who presented to [place] 04/03 with right leg pain, numbness, tingling causing difficulty ambulating. CTA of LE, showing severe LE atherosclerotic disease with bilateral superficial femoral artery occlusion, and was transferred to [facility] for admission. Interval History: Has significant pain this morning preop, pain meds did help. Underwent thrombectomy with vascular surgery Adult diet Regular 24HR INTAKE/OUTPUT: Intake/Output Summary (Last 24 hours) at 04/06/2024 1329 Last data filed at 04/06/2024 1123 Gross per 24 hour Intake 576.42 ml Output 300 ml Net 276.42 ml Past Medical History: Past Medical History: Diagnosis Date Asthma Essential hypertension 03/07/2020 GERD (gastroesophageal reflux disease) Hiatal hernia Pure hypercholesterolemia 03/07/2020 LABS: CBC: Recent Labs 04/04/24 0608 04/05/24 0739 04/06/24 0711 WBC 8.1 6.1 4.5 RBC 4.21 3.45* 3.20* HGB 12.5 10.6* 9.7* HCT 38.8 32.3* 29.8* MCV 92.2 93.6 93.1 RDW 14.2 14.4 14.3 PLT 266 204 207 BMP: Recent Labs 04/04/24 0608 04/05/24 0739 04/06/24 0711 NA 135 133* 135 K 4.5 4.8 4.6 CL 110* 113* 114* CO2 18* 17* 18* BUN 30* 25* 17 CREATININE 1.45* 1.12* 0.96 GLUCOSE 100 102* 97 CALCIUM 9.3 8.7 8.9 ANIONGAP 8 3 4 LIVER PROFILE: Recent Labs 04/03/241917 AST 19 ALT 10 BILITOT 1.1 ALKPHOS 91 PROT 7.7 PT/INR: Recent Labs 04/03/248 04/05/24 0739 04/05/24 2307 PROTIME 11.7 11.9 11.4 INR 1.0 1.1 1.0 CARDIAC ENZYMES: Recent Labs 04/03/241917 TROPONINI 0.014 Procalcitonin: No results found for: "PROCAL" COVID-19 PCR: No results for input(s): "COVID19" in the last 72 hours. Objective: Vitals: BP 147/71 Pulse 73 Temp 36.3 C (97.4 F) (Temporal) Resp 18 Ht 5' 4" (1.626 m) Wt 159 lb 8 oz (72.3 kg) SpO2 96% BMI 27.38 kg/m Pulse Ox: SpO2 Av.5 % Min: 94 % Max: 99 % Supplemental O2: O2 Flow Rate (L/min): 2 L/min Physical Exam Vitals and nursing note reviewed. Constitutional: Appearance: Normal appearance. Cardiovascular: Rate and Rhythm: Normal rate. Pulmonary: Effort: Pulmonary effort is normal. Abdominal: General: Abdomen is flat. Neurological: Mental Status: She is alert. Psychiatric: Mood and Affect: Mood normal. Behavior: Behavior normal. Medications: influenza, 0.5 mL, IntraMUSCular, Once lisinopril, 5 mg, Oral, Daily mometasone-formoterol, 2 puff, Inhalation, BID pantoprazole, 40 mg, Oral, qAM AC tiotropium, 2 puff, Inhalation, Daily Extended Emergency Contact Information Primary Emergency Contact: Damaris Villafana Mobile Relation: Friend Secondary Emergency Contact: José Miguel Castillo/ Fidel Mobile Relation: Child Klarissaautumn Elise Vigil MD Division of Hospitalist Medicine [facility] Department of General Surgery Daily Progress Note Vascular Service ADMIT DATE: 04/03/2024 TODAY'S DATE: 04/06/2024 SUBJECTIVE: NAEON. Patient endorses RLE pain that she states she is unable to live with. Notes that she walks fairly often at home. OBJECTIVE: VITALS: BP 136/56 (BP Location: Left arm, Patient Position: Sitting) Pulse 77 Temp 36.3 C (97.4 F) (Temporal) Resp 14 Ht 5' 4" (1.626 m) Wt 159 lb 8 oz (72.3 kg) SpO2 97% BMI 27.38 kg/m INTAKE/OUTPUT: No intake/output data recorded. No intake/output data recorded. PHYSICAL EXAM: Gen: NAD, A&Ox3 Heart: RRR Vasc: Weak right PT DS Lungs: symmetric chest rise, normal work of breathing Abd: soft, non tender, non distended. Non rigid. Ext: no c/c/e no gross deformities Skin: warm, well perfused, <2 cm cap refill, no obvious rashes, cellulitis or gross discoloration LABS CBC: Recent Labs 04/04/24 0608 04/05/24 0739 04/06/24 0711 WBC 8.1 6.1 4.5 HGB 12.5 10.6* 9.7* HCT 38.8 32.3* 29.8* PLT 266 204 207 BMP: Recent Labs 04/03/24191704/04/24 0608 04/05/24 0739 NA 135 135 133* K 5.7* 4.5 4.8 CL 107 110* 113* CO2 20* 18* 17* BUN 29* 30* 25* CREATININE 1.54* 1.45* 1.12* GLUCOSE 115* 100 102* Hepatic: Recent Labs 04/03/241917 AST 19 ALT 10 BILITOT 1.1 ALKPHOS 91 Current Inpatient Medications Scheduled Meds:influenza, 0.5 mL, IntraMUSCular, Once lisinopril, 5 mg, Oral, Daily mometasone-formoterol, 2 puff, Inhalation, BID pantoprazole, 40 mg, Oral, qAM AC tiotropium, 2 puff, Inhalation, Daily Continuous Infusions:heparin, 5-30 Units/kg/hr, Last Rate: 13 Units/kg/hr (04/05/24 1617) sodium chloride, 125 mL/hr, Last Rate: 125 mL/hr (04/05/24 1616) PRN Meds:PRN medications: acetaminophen OR acetaminophen, albuterol, heparin, heparin, HYDROmorphone, naloxone, ondansetron ODT OR ondansetron, oxyCODONE OR oxyCODONE, polyethylene glycol (PEG) 3350 ASSESSMENT AND PLAN: 83 y.o. female with acute right lower extremity pain. At this time it would seem that her new proximal right femoral DVT is the cause of this, as opposed to her diffuse atherosclerotic disease - Heparin gtt being held prior to OR today - To OR today for venous thrombectomy - NPO, consented - Vascular will continue to follow post-operatively Josiah Diaz MD PGY1 04/06/2024 7:49 AM Associated attestation - Kristyn Blankenship MD - 04/06/2024 9:58 AM EDT I saw and evaluated the patient. I agree with the findings and plan of care as documented in the resident s note unless otherwise noted below. The patient's swelling has not improved and she continues to have pain secondary to this. We discussed mechanical venous thrombectomy and how the procedure is performed. We discussed the risks of the procedure including the risks of bleeding, access site complications and possible failure to see significant improvement following the procedure. She has expressed understanding and has elected to proceed. I have also contact the patient's family at her request and I spoke with Fidel Castillo and updated her as well. All questions have been answered to their satisfaction. [facility] Anticoagulation Management Service ([facility]) Inpatient Warfarin Consult HPI: Mel Pop is a 83 y.o. female admitted on 04/03/2024 for Peripheral arterial disease (HCC). Past Medical History: Diagnosis Date Asthma Essential hypertension 03/07/2020 GERD (gastroesophageal reflux disease) Hiatal hernia Pure hypercholesterolemia 03/07/2020 Patient is newly referred to the [facility] clinic for warfarin management. Pt was referred by Anthony Yee APRN - SH[facility]. Pt is on warfarin for DVT and has a goal INR 2.0 - 3.0. Patient also has a history of afib. Duration of therapy= likely indefinite. Reason for warfarin instead of DOAC: Eliquis failure PCP: Jared Evans MD S/sx of bleeding= none Interacting medications= heparin drip Labs: Recent Labs 04/03/24 1918 04/04/24 0608 04/05/24 0739 HGB 12.7 12.5 10.6* HCT 38.6 38.8 32.3* PLT 283 266 204 Recent Labs 04/05/24 2307 INR 1.0 Date INR Dose 04/06 1.0 2.5mg 04/05 1.1 Held 04/04 --- 2.5mg 04/03 1.0 --- Assessment/Plan: 1. INR is subtherapeutic due to new start warfarin. Warfarin was held yesterday for thrombectomy today. Per Dr. Vigil, GHULAM to resume warfarin tonight - will give 2.5mg. Bridging with heparin drip. 2. Will monitor for s/s of bleeding and drug interactions and adjust dose accordingly. 3. Will determine if pt is agreeable to [facility] follow-up 4. Will provide warfarin education. Marybeth Rahman RPh, PharmD [facility] Consult Service is available daily [phone] via [employer]. If no response, please page [phone]. Hospitalist Progress Note 04/05/2024 Assessment/Plan: Data: (CAT1) Reviewed 2 notes from different specialty or health system (each=1). (CAT1) Reviewed 2 labs/studies ordered by another provider not previously counted (each=1, panels count as 1). 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 Heme-onc consulted, patient started on Coumadin -Appreciate pharmacy, on Coumadin bridge -Strongly recommend smoking cessation - PT/OT/CM/SW - delirium precautions: increase activity - DVT prophylaxis: encourage ambulation and already anticoagulated Discharge Disposition: Anticipate DC pending clinical improvement, e business consultant recommendations Total time spent (which include face to face and non face to face encounters) : 36 minutes D/W TCC Complexity: Acute illness with systemic symptoms (MOD). Multiple stable chronic illnesses (MOD). Risk: Admission to hospital-level care was considered or occurred (HIGH). Advance Directive: DNR-CCA Toxic drug monitoring/narrow therapeutic index drug monitoring : # Drug name : # Route administered: # Method of monitoring: Subjective: Admit Date: 04/03/2024 PCP: Jared Evans MD Room#: N4-461/N4-461 B Brief Hospital course: Patient is an 83-year-old female with history of A-fib on Eliquis, significant tobacco use, HTN, HLD, asthma, hiatal hernia, GERD who presented to [place] 04/03 with right leg pain, numbness, tingling causing difficulty ambulating. CTA of LE, showing severe LE atherosclerotic disease with bilateral superficial femoral artery occlusion, and was transferred to [facility] for admission. Interval History: Had more RLE pain earlier this morning, but improved on my evaluation Adult diet Regular NPO diet with enteral medications 24HR INTAKE/OUTPUT: No intake or output data in the 24 hours ending 04/05/24 1453 Past Medical History: Past Medical History: Diagnosis Date Asthma Essential hypertension 03/07/2020 GERD (gastroesophageal reflux disease) Hiatal hernia Pure hypercholesterolemia 03/07/2020 LABS: CBC: Recent Labs 04/03/24 1918 04/04/24 0608 04/05/24 0739 WBC 9.3 8.1 6.1 RBC 4.18 4.21 3.45* HGB 12.7 12.5 10.6* HCT 38.6 38.8 32.3* MCV 92.3 92.2 93.6 RDW 14.4 14.2 14.4 PLT 283 266 204 BMP: Recent Labs 04/03/24191704/04/24 0608 04/05/24 0739 NA 135 135 133* K 5.7* 4.5 4.8 CL 107 110* 113* CO2 20* 18* 17* BUN 29* 30* 25* CREATININE 1.54* 1.45* 1.12* GLUCOSE 115* 100 102* CALCIUM 9.3 9.3 8.7 ANIONGAP 9 8 3 LIVER PROFILE: Recent Labs 04/03/241917 AST 19 ALT 10 BILITOT 1.1 ALKPHOS 91 PROT 7.7 PT/INR: Recent Labs 04/03/24191704/05/24 0739 PROTIME 11.7 11.9 INR 1.0 1.1 CARDIAC ENZYMES: Recent Labs 04/03/241917 TROPONINI 0.014 Procalcitonin: No results found for: "PROCAL" COVID-19 PCR: No results for input(s): "COVID19" in the last 72 hours. Objective: Vitals: BP 112/73 (BP Location: Left arm, Patient Position: Sitting) Pulse 73 Temp 36.7 C (98 F) (Temporal) Resp 16 Ht 5' 4" (1.626 m) Wt 159 lb 8 oz (72.3 kg) SpO2 98% BMI 27.38 kg/m Pulse Ox: SpO2 Av.5 % Min: 93 % Max: 98 % Supplemental O2: Physical Exam Vitals and nursing note reviewed. Constitutional: Appearance: Normal appearance. Cardiovascular: Rate and Rhythm: Normal rate. Pulmonary: Effort: Pulmonary effort is normal. Abdominal: General: Abdomen is flat. Neurological: Mental Status: She is alert. Psychiatric: Mood and Affect: Mood normal. Behavior: Behavior normal. Medications: influenza, 0.5 mL, IntraMUSCular, Once lisinopril, 5 mg, Oral, Daily mometasone-formoterol, 2 puff, Inhalation, BID pantoprazole, 40 mg, Oral, qAM AC tiotropium, 2 puff, Inhalation, Daily [Held by provider] warfarin, 2.5 mg, Oral, Once Extended Emergency Contact Information Primary Emergency Contact: Damaris Villafana Mobile Relation: Friend Secondary Emergency Contact: José Miguel Castillo/ Fidel Mobile Relation: Child Robert Vigil MD Division of Hospitalist Medicine [facility] Nutrition rescreen completed. Chart reviewed. Patient to be monitored and followed by the diet orthodontic laboratory technician. FADI Harmon [facility] Anticoagulation Management Service ([facility]) Inpatient Warfarin Consult HPI: Mel Pop is a 83 y.o. female admitted on 04/03/2024 for Peripheral arterial disease (HCC). Past Medical History: Diagnosis Date Asthma Essential hypertension 03/07/2020 GERD (gastroesophageal reflux disease) Hiatal hernia Pure hypercholesterolemia 03/07/2020 Patient is newly referred to the [facility] clinic for warfarin management. Pt was referred by SEBASTIAN Tate CNP. Pt is on warfarin for DVT and has a goal INR 2.0 - 3.0. Patient also has a history of afib. Duration of therapy= likely indefinite. Reason for warfarin instead of DOAC: Eliquis failure PCP: Jared Evans MD S/sx of bleeding= none Interacting medications= heparin drip Labs: Recent Labs 04/03/24 1918 04/04/24 0608 04/05/24 0739 HGB 12.7 12.5 10.6* HCT 38.6 38.8 32.3* PLT 283 266 204 Recent Labs 04/05/24 0739 INR 1.1 Date INR Dose 04/05 1.1 2.5mg 04/04 --- 2.5mg 04/03 1.0 --- Assessment/Plan: 1. INR is subtherapeutic due to new start warfarin - today is day 2. Will continue warfarin 2.5mg today. Bridging with heparin drip. 2. Will monitor for s/s of bleeding and drug interactions and adjust dose accordingly. 3. Will determine if pt is agreeable to [facility] follow-up 4. Will provide warfarin education. Thank you for this consult Patty Duggan RPh, PharmD [facility] Consult Service is available daily [phone] via [employer]. If no response, please page [phone]. Department of General Surgery Daily Progress Note Vascular Service ADMIT DATE: 04/03/2024 TODAY'S DATE: 04/05/2024 SUBJECTIVE: NAEON. Patient endorses RLE pain, states that her foot pain is worse than her thigh pain. Notes that she walks fairly often at home. OBJECTIVE: VITALS: BP 140/83 (BP Location: Left arm, Patient Position: Sitting) Pulse 84 Temp 36.4 C (97.6 F) (Temporal) Resp 18 Ht 1.626 m (5' 4") Wt 72.3 kg (159 lb 8 oz) SpO2 93% BMI 27.38 kg/m INTAKE/OUTPUT: I/O last 3 completed shifts: In: 500 (6.9 mL/kg) [IV Piggyback:500] Out: - (0 mL/kg) Weight: 72.3 kg No intake/output data recorded. PHYSICAL EXAM: Gen: NAD, A&Ox3 Heart: RRR Vasc: Weak right PT DS Lungs: symmetric chest rise, normal work of breathing Abd: soft, non tender, non distended. Non rigid. Ext: no c/c/e no gross deformities Skin: warm, well perfused, <2 cm cap refill, no obvious rashes, cellulitis or gross discoloration LABS CBC: Recent Labs 04/03/24191704/04/24 0608 WBC 9.3 8.1 HGB 12.7 12.5 HCT 38.6 38.8 PLT 283 266 BMP: Recent Labs 04/03/24191704/04/24 0608 NA 135 135 K 5.7* 4.5 CL 107 110* CO2 20* 18* BUN 29* 30* CREATININE 1.54* 1.45* GLUCOSE 115* 100 Hepatic: Recent Labs 04/03/241917 AST 19 ALT 10 BILITOT 1.1 ALKPHOS 91 Current Inpatient Medications Scheduled Meds:influenza, 0.5 mL, IntraMUSCular, Once lisinopril, 5 mg, Oral, Daily mometasone-formoterol, 2 puff, Inhalation, BID pantoprazole, 40 mg, Oral, qAM AC tiotropium, 2 puff, Inhalation, Daily Continuous Infusions:heparin, 5-30 Units/kg/hr, Last Rate: 14 Units/kg/hr (04/05/24 0123) sodium chloride, 125 mL/hr, Last Rate: 125 mL/hr (04/05/24 0123) PRN Meds:PRN medications: acetaminophen OR acetaminophen, albuterol, heparin, heparin, HYDROmorphone, naloxone, ondansetron ODT OR ondansetron, polyethylene glycol (PEG) 3350 ASSESSMENT AND PLAN: 83 y.o. female with acute right lower extremity pain. At this time it would seem that her new proximal right femoral DVT is the cause of this, as opposed to her diffuse atherosclerotic disease - Continue heparin gtt - Considering possible venous thrombectomy tomorrow, will further discuss with Dr Blankenship today - Vascular will continue to follow Selene Naik MD General Surgery PGY-4 Pager # [phone] Associated attestation - Kristyn Blankenship MD - 04/05/2024 3:31 PM EDT I saw and evaluated the patient. I agree with the findings and plan of care as documented in the resident s note unless otherwise noted below. Swelling no worse but also not improved. She did not tolerate compression, possible it was too tight given her concomitant arterial disease. I discussed with her the importance of compression and I wrapped her right lower extremity with mild compression to see if she tolerates this better. Will continue to monitor. If no better tomorrow, may benefit from thrombectomy to improve swelling/symptoms. Hold coumadin. Continue heparin gtt. NPO at midnight for possible thrombectomy tomorrow. [facility] Anticoagulation Management Service ([facility]) Inpatient Warfarin Consult HPI: Mel Pop is a 83 y.o. female admitted on 04/03/2024 for Peripheral arterial disease (HCC). Past Medical History: Diagnosis Date Asthma Essential hypertension 03/07/2020 GERD (gastroesophageal reflux disease) Hiatal hernia Pure hypercholesterolemia 03/07/2020 Patient is newly referred to the [facility] clinic for warfarin management. Pt was referred by SEBASTIAN Tate CNP. Pt is on warfarin for DVT and has a goal INR 2.0 - 3.0. Patient also has a history of afib. Duration of therapy= likely indefinite. Reason for warfarin instead of DOAC: Eliquis failure PCP: Jared Evans MD S/sx of bleeding= none Interacting medications= heparin drip Labs: Recent Labs 04/03/24191704/04/24 0608 HGB 12.7 12.5 HCT 38.6 38.8 PLT 283 266 Recent Labs 04/03/241917 INR 1.0 Date INR Dose 04/04 --- 2.5mg 04/03 1.0 --- Assessment/Plan: 1. INR is subtherapeutic due to new start warfarin - today is day 1. Will start warfarin 2.5mg today. Bridging with heparin drip. 2. Will monitor for s/s of bleeding and drug interactions and adjust dose accordingly. 3. Will determine if pt is agreeable to [facility] follow-up 4. Will provide warfarin education. Thank you for this consult Marybeth Rahman RPh, PharmD [facility] Consult Service is available daily [phone] via [employer]. If no response, please page [phone]. Nonbillable encounter. Patient was seen by provider earlier today Patient is an 83-year-old female with history of A-fib on Eliquis, significant tobacco use, HTN, HLD, asthma, hiatal hernia, GERD who presented to [place] 04/03 with right leg pain, numbness, tingling causing difficulty ambulating. CTA of LE, showing severe LE atherosclerotic disease with bilateral superficial femoral artery occlusion, and was transferred to [facility] for admission. 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 Images from the original note were not included. Care Management Progress Note INR 2.3 today. Hep drip continued, plan to DC to [facility] today. Plan to have PT seen patient today per her request. Patient is active with [facility]. Await treatment plan and clinical progress. trust manager will continue to follow for transitional care needs and discharge planning. Discharge Milestones and Delays Expected date/time: 04/13/2024 Expected discharge disposition: Home Health Services Discharge Milestones Place discharge order Complete med reconciliation Case mgmt discharge readiness Clinical Stability Diagnostic Workup Facility Choice Selection Imaging Results Patient Education Complete Expected Discharge History Expected Date/Time Set By Reviewed At 04/13/2024 Cathi Avila RN 04/13/2024 8:23 AM hep gtt- transitioning to coumadin, INR 2.3" 04/13/2024 Cathi Avila RN 04/12/2024 8:02 AM hep gtt- transitioning to coumadin, INR 1.9" 04/11/2024 Ctahi Avila RN 04/11/2024 8:03 AM 04/11/2024 Cathi Avila RN 04/10/2024 8:41 AM hep gtt- transitioning to coumadin" 04/10/2024 Virginia Rehman, RADHA 04/09/2024 8:13 AM 04/08/2024 Virginia Rehman, RADHA 04/06/2024 8:13 AM hep gtt, poss thrombectomy 04/07/2024 Virginia Rehman, RN 04/05/2024 8:03 AM hep gtt, poss thrombectomy tomorrow" 04/06/2024 Virginia Rehman, RN 04/04/2024 8:48 AM hep gtt, loiva lower US, vasc consult" 04/06/2024 SEBASTIAN Herrera CNP 04/04/2024 4:04 AM 04/06/2024 SEBASTIAN Herrera CNP 04/03/2024 11:17 PM Length of Stay (Days): 10 GMLOS: 4 [facility] 04-13-2024 Note Formatting of this n ote is different from the original. Images from the original note were not included. Care Management Progress Note INR 2.3 today. Hep drip continued, plan to DC to [facility] today. Plan to have PT seen patient today per her request. Patient is active with [facility]. Await treatment plan and clinical progress. trust manager will continue to follow for transitional care needs and discharge planning. Discharge Milestones and Delays Expected date/time: 04/13/2024 Expected discharge disposition: Home Health Services Discharge Milestones Place discharge order Complete med reconciliation Case mgmt discharge readiness Clinical Stability Diagnostic Workup Facility Choice Selection Imaging Results Patient Education Complete Expected Discharge History Expected Date/Time Set By Reviewed At 04/13/2024 Cathi Avila RN 04/13/2024 8:23 AM hep gtt- transitioning to coumadin, INR 2.3" 04/13/2024 Cathi Avila RN 04/12/2024 8:02 AM hep gtt- transitioning to coumadin, INR 1.9" 04/11/2024 Cathi Avila RN 04/11/2024 8:03 AM 04/11/2024 Cathi Avila RN 04/10/2024 8:41 AM hep gtt- transitioning to coumadin" 04/10/2024 Virginia Rehman, RADHA 04/09/2024 8:13 AM 04/08/2024 Virginia Rehman, RADHA 04/06/2024 8:13 AM hep gtt, poss thrombectomy 04/07/2024 Virginia Rehman, RADHA 04/05/2024 8:03 AM hep gtt, poss thrombectomy tomorrow" 04/06/2024 Virginia Rehman, RADHA 04/04/2024 8:48 AM hep gtt, oliva lower [place], vasc consult" 04/06/2024 SEBASTIAN Herrera CNP 04/04/2024 4:04 AM 04/06/2024 SEBASTIAN Herrera CNP 04/03/2024 11:17 PM Length of Stay (Days): 10 GMLOS: 4 [facility] 04-13-2024 Plan of care note The patient is Moderately Stable - Low risk of patient condition declining or worsening The patient's goals for the shift include pain control/rest The clinical goals for the shift include hemodynamic stability Problem: Pain - Adult Goal: Verbalizes/displays adequate comfort level or baseline comfort level Outcome: Progressing Problem: Safety - Adult Goal: Free from fall injury Outcome: Progressing Problem: Chronic Conditions and Co-morbidities Goal: Patient's chronic conditions and co-morbidity symptoms are monitored and maintained or improved Outcome: Progressing Problem: Knowledge Deficit Goal: Patient/family/caregiver demonstrates understanding of disease process, treatment plan, medications, and discharge instructions Outcome: Progressing [facility] 04-12-2024 Plan of care note Problem: Pain - Adult Goal: Verbalizes/displays adequate comfort level or baseline comfort level Outcome: Progressing Problem: Safety - Adult Goal: Free from fall injury Outcome: Progressing Problem: Discharge Planning Goal: Discharge to home or other facility with appropriate resources Outcome: Progressing Problem: Chronic Conditions and Co-morbidities Goal: Patient's chronic conditions and co-morbidity symptoms are monitored and maintained or improved Outcome: Progressing Problem: Knowledge Deficit Goal: Patient/family/caregiver demonstrates understanding of disease process, treatment plan, medications, and discharge instructions Outcome: Progressing Problem: Potential for Compromised Skin Integrity Goal: Skin Integrity is Maintained or Improved Outcome: Progressing Goal: Nutritional status is improving Outcome: Progressing Problem: Urinary Incontinence Goal: Perineal skin integrity is maintained or improved Outcome: Progressing The patient is Moderately Stable - Low risk of patient condition declining or worsening [facility] 04-12-2024 Note Formatting of this n ote is different from the original. Images from the original note were not included. Care Management Progress Note Patent currently still on Hep Drip, INR 1.9. Will convert to oral when appropriate. Pt active with [facility]- will continue services at discharge. Await treatment plan and clinical progress. trust manager will continue to follow for transitional care needs for discharge planning. Discharge Milestones and Delays Expected date/time: 04/13/2024 Expected discharge disposition: Home Health Services Discharge Milestones Place discharge order Complete med reconciliation Case mgmt discharge readiness Clinical Stability Diagnostic Workup Product Transfer Pumper Recommendations Facility Choice Selection Imaging Results PT discharge readiness OT discharge readiness Patient Education Complete Expected Discharge History Expected Date/Time Set By Reviewed At 04/13/2024 Cathi Avila RN 04/12/2024 8:02 AM hep gtt- transitioning to coumadin, INR 1.9" 04/11/2024 Cathi Avila RN 04/11/2024 8:03 AM 04/11/2024 Cathi Avila RN 04/10/2024 8:41 AM hep gtt- transitioning to coumadin" 04/10/2024 Virginia Rehman RN 04/09/2024 8:13 AM 04/08/2024 Virginia Rehman RN 04/06/2024 8:13 AM hep gtt, poss thrombectomy 04/07/2024 Virginia Rehman RN 04/05/2024 8:03 AM hep gtt, poss thrombectomy tomorrow" 04/06/2024 Virginia Rehman RN 04/04/2024 8:48 AM hep gtt, oliva lower [place], vasc consult" 04/06/2024 SEBASTIAN Herrera CNP 04/04/2024 4:04 AM 04/06/2024 SEBASTIAN Herrera CNP 04/03/2024 11:17 PM Length of Stay (Days): 9 GMLOS: 4 [facility] 04-12-2024 Note Formatting of this n ote is different from the original. Images from the original note were not included. Care Management Progress Note Patent currently still on Hep Drip, INR 1.9. Will convert to oral when appropriate. Pt active with [facility]- will continue services at discharge. Await treatment plan and clinical progress. trust manager will continue to follow for transitional care needs for discharge planning. Discharge Milestones and Delays Expected date/time: 04/13/2024 Expected discharge disposition: Home Health Services Discharge Milestones Place discharge order Complete med reconciliation Case mgmt discharge readiness Clinical Stability Diagnostic Workup Product Transfer Pumper Recommendations Facility Choice Selection Imaging Results PT discharge readiness OT discharge readiness Patient Education Complete Expected Discharge History Expected Date/Time Set By Reviewed At 04/13/2024 Cathi Avila RN 04/12/2024 8:02 AM hep gtt- transitioning to coumadin, INR 1.9" 04/11/2024 Cathi Avila RN 04/11/2024 8:03 AM 04/11/2024 Cathi Avila RN 04/10/2024 8:41 AM hep gtt- transitioning to coumadin" 04/10/2024 Virginia Rehman RN 04/09/2024 8:13 AM 04/08/2024 Virginia Rehman, RADHA 04/06/2024 8:13 AM hep gtt, poss thrombectomy 04/07/2024 Virginia Rehman RN 04/05/2024 8:03 AM hep gtt, poss thrombectomy tomorrow" 04/06/2024 Virginia Rehman RN 04/04/2024 8:48 AM hep gtt, oliva lower [place], vasc consult" 04/06/2024 SEBASTIAN Herrera CNP 04/04/2024 4:04 AM 04/06/2024 SEBASTIAN Herrera CNP 04/03/2024 11:17 PM Length of Stay (Days): 9 GMLOS: 4 [facility] 04-12-2024 Plan of care note The patient is Moderately Stable - Low risk of patient condition declining or worsening The patient's goals for the shift include rest, safety The clinical goals for the shift include safety, hemodynamic stability Problem: Safety - Adult Goal: Free from fall injury Outcome: Progressing Problem: Pain - Adult Goal: Verbalizes/displays adequate comfort level or baseline comfort level Outcome: Progressing Problem: Chronic Conditions and Co-morbidities Goal: Patient's chronic conditions and co-morbidity symptoms are monitored and maintained or improved Outcome: Progressing Problem: Knowledge Deficit Goal: Patient/family/caregiver demonstrates understanding of disease process, treatment plan, medications, and discharge instructions Outcome: Progressing [facility] 04-11-2024 Note Formatting of this n ote is different from the original. Images from the original note were not included. Care Management Progress Note Patent currently still on Hep Drip, INR 1.9. Will convert to oral when appropriate. Pt active with [facility]- will continue services at discharge. Await treatment plan and clinical progress. trust manager will continue to follow for transitional care needs for discharge planning. Discharge Milestones and Delays Expected date/time: 04/11/2024 Expected discharge disposition: Home Health Services Discharge Milestones Place discharge order Complete med reconciliation Case mgmt discharge readiness Clinical Stability Diagnostic Workup Facility Choice Selection Imaging Results Patient Education Complete Expected Discharge History Expected Date/Time Set By Reviewed At 04/11/2024 Cathi Avila RN 04/11/2024 8:03 AM hep gtt- transitioning to coumadin, INR 1.9" 04/11/2024 Cathi Avila RN 04/10/2024 8:41 AM hep gtt- transitioning to coumadin" 04/10/2024 Virginia Rehman, RADHA 04/09/2024 8:13 AM 04/08/2024 Virginia Rehman, RADHA 04/06/2024 8:13 AM hep gtt, poss thrombectomy 04/07/2024 Virginia Rehman, RADHA 04/05/2024 8:03 AM hep gtt, poss thrombectomy tomorrow" 04/06/2024 Virginia Rehman RN 04/04/2024 8:48 AM hep gtt, oliva lower [place], vasc consult" 04/06/2024 SEBASTIAN Herrera CNP 04/04/2024 4:04 AM 04/06/2024 SEBASTIAN Herrera CNP 04/03/2024 11:17 PM Length of Stay (Days): 8 GMLOS: 4 [facility] 04-11-2024 Note Formatting of this n ote is different from the original. Images from the original note were not included. Care Management Progress Note Patent currently still on Hep Drip, INR 1.9. Will convert to oral when appropriate. Pt active with [facility]- will continue services at discharge. Await treatment plan and clinical progress. trust manager will continue to follow for transitional care needs for discharge planning. Discharge Milestones and Delays Expected date/time: 04/11/2024 Expected discharge disposition: Home Health Services Discharge Milestones Place discharge order Complete med reconciliation Case mgmt discharge readiness Clinical Stability Diagnostic Workup Facility Choice Selection Imaging Results Patient Education Complete Expected Discharge History Expected Date/Time Set By Reviewed At 04/11/2024 Cathi Avila RN 04/11/2024 8:03 AM hep gtt- transitioning to coumadin, INR 1.9" 04/11/2024 Cathi Avila RN 04/10/2024 8:41 AM hep gtt- transitioning to coumadin" 04/10/2024 Virginia Rehman, RADHA 04/09/2024 8:13 AM 04/08/2024 Virginia Rehman, RADHA 04/06/2024 8:13 AM hep gtt, poss thrombectomy 04/07/2024 Virginia Rehman RN 04/05/2024 8:03 AM hep gtt, poss thrombectomy tomorrow" 04/06/2024 Virginia Rehman RN 04/04/2024 8:48 AM hep gtt, oliva lower [place], vasc consult" 04/06/2024 SEBASTIAN Herrera CNP 04/04/2024 4:04 AM 04/06/2024 SEBASTIAN Herrera CNP 04/03/2024 11:17 PM Length of Stay (Days): 8 GMLOS: 4 [facility] 04-11-2024 Plan of care note Problem: Pain - Adult Goal: Verbalizes/displays adequate comfort level or baseline comfort level Outcome: Progressing Problem: Safety - Adult Goal: Free from fall injury Outcome: Progressing Problem: Discharge Planning Goal: Discharge to home or other facility with appropriate resources Outcome: Progressing Problem: Chronic Conditions and Co-morbidities Goal: Patient's chronic conditions and co-morbidity symptoms are monitored and maintained or improved Outcome: Progressing Problem: Knowledge Deficit Goal: Patient/family/caregiver demonstrates understanding of disease process, treatment plan, medications, and discharge instructions Outcome: Progressing Problem: Potential for Compromised Skin Integrity Goal: Skin Integrity is Maintained or Improved Outcome: Progressing Goal: Nutritional status is improving Outcome: Progressing Problem: Urinary Incontinence Goal: Perineal skin integrity is maintained or improved Outcome: Progressing The patient is Moderately Stable - Low risk of patient condition declining or worsening [facility] 04-11-2024 Plan of care note The patient is Moderately Stable - Low risk of patient condition declining or worsening The patient's goals for the shift include rest The clinical goals for the shift include safety Problem: Chronic Conditions and Co-morbidities Goal: Patient's chronic conditions and co-morbidity symptoms are monitored and maintained or improved Outcome: Progressing Problem: Safety - Adult Goal: Free from fall injury Outcome: Progressing Problem: Pain - Adult Goal: Verbalizes/displays adequate comfort level or baseline comfort level Outcome: Progressing [facility] 04-10-2024 Plan of care note Problem: Pain - Adult Goal: Verbalizes/displays adequate comfort level or baseline comfort level Outcome: Progressing Problem: Safety - Adult Goal: Free from fall injury Outcome: Progressing Problem: Discharge Planning Goal: Discharge to home or other facility with appropriate resources Outcome: Progressing Problem: Chronic Conditions and Co-morbidities Goal: Patient's chronic conditions and co-morbidity symptoms are monitored and maintained or improved Outcome: Progressing Problem: Knowledge Deficit Goal: Patient/family/caregiver demonstrates understanding of disease process, treatment plan, medications, and discharge instructions Outcome: Progressing Problem: Potential for Compromised Skin Integrity Goal: Skin Integrity is Maintained or Improved Outcome: Progressing Goal: Nutritional status is improving Outcome: Progressing Problem: Urinary Incontinence Goal: Perineal skin integrity is maintained or improved Outcome: Progressing The patient is Moderately Stable - Low risk of patient condition declining or worsening [facility] 04-10-2024 Note Formatting of this n ote is different from the original. Images from the original note were not included. Care Management Progress Note Patient currently still on Heparin Drip, INR 1.6 today.Will convert to oral when appropriate. Pt active with [facility]- will continue services at discharge. Await treatment plan and clinical progress. trust manager will continue to follow for transitional care needs for discharge planning. Discharge Milestones and Delays Expected date/time: 04/11/2024 Expected discharge disposition: Home or Self Care Discharge Milestones Place discharge order Complete med reconciliation Case mgmt discharge readiness Clinical Stability Diagnostic Workup Product Transfer Pumper Recommendations Facility Choice Selection Imaging Results Patient Education Complete Expected Discharge History Expected Date/Time Set By Reviewed At 04/11/2024 Cathi Avila RN 04/10/2024 8:41 AM hep gtt- transitioning to coumadin" 04/10/2024 Virginia Rehman RN 04/09/2024 8:13 AM 04/08/2024 Virginia Rehman RN 04/06/2024 8:13 AM hep gtt, poss thrombectomy 04/07/2024 Virginia Rehman RN 04/05/2024 8:03 AM hep gtt, poss thrombectomy tomorrow" 04/06/2024 Virginia Rehman RN 04/04/2024 8:48 AM hep gtt, oliva lower [place], vasc consult" 04/06/2024 Bernie Cutler APRN - APPLICATIONS PROJECT MANAGER 04/04/2024 4:04 AM 04/06/2024 SEBASTIAN Herrera CNP 04/03/2024 11:17 PM Length of Stay (Days): 7 GMLOS: 4 [facility] 04-10-2024 Note Formatting of this n ote is different from the original. Images from the original note were not included. Care Management Progress Note Patient currently still on Heparin Drip, INR 1.6 today.Will convert to oral when appropriate. Pt active with [facility]- will continue services at discharge. Await treatment plan and clinical progress. trust manager will continue to follow for transitional care needs for discharge planning. Discharge Milestones and Delays Expected date/time: 04/11/2024 Expected discharge disposition: Home or Self Care Discharge Milestones Place discharge order Complete med reconciliation Case mgmt discharge readiness Clinical Stability Diagnostic Workup Product Transfer Pumper Recommendations Facility Choice Selection Imaging Results Patient Education Complete Expected Discharge History Expected Date/Time Set By Reviewed At 04/11/2024 Cathi Avila RN 04/10/2024 8:41 AM hep gtt- transitioning to coumadin" 04/10/2024 Virginia Rehman RN 04/09/2024 8:13 AM 04/08/2024 Virginia Rehman RN 04/06/2024 8:13 AM hep gtt, poss thrombectomy 04/07/2024 Virginia Rehman RN 04/05/2024 8:03 AM hep gtt, poss thrombectomy tomorrow" 04/06/2024 Virginia Rehman RN 04/04/2024 8:48 AM hep gtt, oliva lower [place], vasc consult" 04/06/2024 Bernie Cutler APRN - SHAMIKA 04/04/2024 4:04 AM 04/06/2024 SEBASTIAN Herrera CNP 04/03/2024 11:17 PM Length of Stay (Days): 7 GMLOS: 4 [facility] 04-09-2024 Note Formatting of this n ote is different from the original. Images from the original note were not included. Care Management Progress Note Remains on heparin gtt while transitioning to coumadin. Consult Hemology. Pt active with [facility]- will continue services at discharge. Await treatment plan and clinical progress. trust manager will continue to follow for transitional care needs for discharge planning. Discharge Milestones and Delays Expected date/time: 04/10/2024 Expected discharge disposition: Home or Self Care Discharge Milestones Place discharge order Complete med reconciliation Case mgmt discharge readiness Clinical Stability Diagnostic Workup Product Transfer Pumper Recommendations Facility Choice Selection Imaging Results Patient Education Complete Expected Discharge History Expected Date/Time Set By Reviewed At 04/10/2024 Virginia Rehman RN 04/09/2024 8:13 AM hep gtt- transitioning to coumadin" 04/08/2024 Virginia Rehman RN 04/06/2024 8:13 AM hep gtt, poss thrombectomy 04/07/2024 Virginia Rehman RN 04/05/2024 8:03 AM hep gtt, poss thrombectomy tomorrow" 04/06/2024 Virginia Rehman RN 04/04/2024 8:48 AM hep gtt, oliva lower [place], vasc consult" 04/06/2024 SEBASTIAN Herrera CNP 04/04/2024 4:04 AM 04/06/2024 SEBASTIAN Herrera CNP 04/03/2024 11:17 PM Length of Stay (Days): 6 GMLOS: 3.1 [facility] 04-09-2024 Note Formatting of this n ote is different from the original. Images from the original note were not included. Care Management Progress Note Remains on heparin gtt while transitioning to coumadin. Consult Hemology. Pt active with [facility]- will continue services at discharge. Await treatment plan and clinical progress. trust manager will continue to follow for transitional care needs for discharge planning. Discharge Milestones and Delays Expected date/time: 04/10/2024 Expected discharge disposition: Home or Self Care Discharge Milestones Place discharge order Complete med reconciliation Case mgmt discharge readiness Clinical Stability Diagnostic Workup Product Transfer Pumper Recommendations Facility Choice Selection Imaging Results Patient Education Complete Expected Discharge History Expected Date/Time Set By Reviewed At 04/10/2024 Virginia Rehman RN 04/09/2024 8:13 AM hep gtt- transitioning to coumadin" 04/08/2024 Virginia Rehman RN 04/06/2024 8:13 AM hep gtt, poss thrombectomy 04/07/2024 Virginia Rehman RN 04/05/2024 8:03 AM hep gtt, poss thrombectomy tomorrow" 04/06/2024 Virginia Rehman RN 04/04/2024 8:48 AM hep gtt, oliva lower [place], vasc consult" 04/06/2024 Bernie Cutler APRN - APPLICATIONS PROJECT MANAGER 04/04/2024 4:04 AM 04/06/2024 Bernie Cutler APRN - APPLICATIONS PROJECT MANAGER 04/03/2024 11:17 PM Length of Stay (Days): 6 GMLOS: 3.1 T [facility] 04-08-2024 Plan of care note Progressing [facility] 04-07-2024 Plan of care note The patient is Moderately Stable - Low risk of patient condition declining or worsening The patient's goals for the shift include met The clinical goals for the shift include met Over the shift, the patient did not make progress toward the following goals. Barriers to progression include Problem: Safety - Adult Goal: Free from fall injury Outcome: Progressing . Recommendations to address these barriers include Problem: Pain - Adult Goal: Verbalizes/displays adequate comfort level or baseline comfort level Outcome: Progressing . [facility] 04-07-2024 Hospital Discharge instructions Lolita Sarah MD - 04/07/2024 8:33 AM EDT Pain Control: You may be prescribed an opiate pain medication after your procedure. These are otherwise known as narcotics and should be taken only as prescribed. DO NOT operate a vehicle, heavy machinery, appliances, or drink alcohol while on this medication. For additional pain/swelling relief, you may ice and elevate the surgical site(s). Note: It is normal to have a certain degree of pain after an operation. Our office is only able to prescribe pain medications within a short period after surgery with few exceptions. Due to certain limitations, prescriptions may need to be picked up in person. If requiring a refill over a weekend, we ask that you please call our office before 1:00pm on Tuesday. Constipation: One of the side effects of opiate medications is constipation. We recommend that patients take precautions to prevent this: Drink plenty of water (6-8 glasses of 8 oz. per day). Avoid alcohol or excessive caffeine. Eat plenty of fiber (fruits, vegetables and whole grains). Take an over the counter stool softener (Colace or Miralax) as instructed on the bottle. You can take this each day that you continue to take opiates. Nausea: Some pain medications may cause you to feel nauseous. If this occurs, you can call your doctor who may prescribe anti-nausea medication as needed. Diet: Resume low-fat, low cholesterol diet high in vegetables. Make sure to include protein with each meal while recovering from surgery. If you are on a specific type of diet for your condition, please resume that instead. Activity: DO NOT lift anything over 10 pounds for 2 weeks. You may slowly resume normal activities as tolerated with certain restrictions. Driving: DO NOT operate a motor vehicle unless released by your doctor DO NOT operate a motor vehicle if you are still on pain medicine DO NOT operate a motor vehicle unless you can safely press the gas and brake, even under emergency conditions. Dressing and Wound Care Instructions: You will be discharged with ARTURO bandages on one or both legs. Under the ARTURO wrap is an operative bandage. Both should be removed after 24 hours. You may have Steri-Strips on this incision in your groin and along your legs. These can be carefully removed after 1 week. Bruising and swelling are to be expected. You may use a warm heating pad to help with the pain. Do not place heating pad on area for long periods of time. Elevate your legs above the level of your heart to help prevent excessive swelling. Re-wrap your surgical leg with the ARTURO bandage starting from your foot up to the level that you were wrapped immediately after surgery. DO NOT apply lotions, peroxide or alcohol. You may wash your incision or shower with soap and water after 72 hours. Rinse and pat dry. DO NOT use baths, hot tubs, and pools unless told otherwise. This can increase your risk of infection. Emergency: Call 911 if you develop sudden chest pain or shortness of breath. If you develop signs of infection, you should call our office as soon as possible. These include: redness, warmth, severe swelling, pus-like drainage, and fever of >100 degrees Fahrenheit. If you have any additional questions about your surgery, please call our office. Marybeth Rahman RPh - 04/13/2024 1:07 PM EDT [facility] will monitor your warfarin after you go home. [facility] Phone number: [phone]. Home care nurse will check your INR Monday 04/16 and [facility] will contact you with warfarin dosing instructions. Eliseo Clark RN - 04/04/2024 11:36 AM EDT Images from the original note were not included. Continuity of Care Form Patient Name: Mel Pop : 1940 Admit date: 04/03/2024 Discharge date: Code Status Order: DNR-CCA Advance Directives: N Admitting Physician: Pratibha Avelar DO PCP: Jared Evans MD Discharging Nurse: Discharging Hospital Unit/Room#: N4-461/N4-461 B Discharging Unit Phone Number: Emergency Contact: Extended Emergency Contact Information Primary Emergency Contact: Damaris Villafana Mobile Relation: Friend Secondary Emergency Contact: Maxwell Cast[place]/ Fidel Mobile Relation: Child Past Surgical History: Past Surgical History: Procedure Laterality Date FINGER AMPUTATION Right 03/07/2020 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 HYSTERECTOMY ORTHOPEDIC SURGERY Immunization History: Immunization History Administered Date(s) Administered Influenza, High Dose Seasonal, Preservative Free 06/29/2013 Influenza, High-dose Seasonal, Quadrivalent, Preservative Free 05/19/2021 Pneumococcal Conjugate PCV 13 02/15/2019 Tdap 02/15/2019 Active Problems: Medical Problems Problem List * (Principal) Peripheral arterial disease (HCC) Bilateral pneumonia Cellulitis COVID-19 Hypothyroidism 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) Overview Signed 07/27/2023 2:25 PM by Kourtney Haque MA Noted by CRISTINA Keita MD last documented on [id number] Ischemic leg Nicotine use disorder 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 (HCC) Overview Signed 07/27/2023 2:25 PM by Kourtney Haque MA Noted by CRISTINA Keita MD last documented on [id number] 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, right (HCC) Irritable bowel syndrome with diarrhea Microscopic hematuria Left retinal detachment Hyperglycemia Osteopenia of left femoral neck prison current use of anticoagulant therapy Seasonal allergies Chronic renal insufficiency, stage III (moderate) (HCC) Major depression, single episode, in complete remission (HCC) Gastroesophageal reflux disease without esophagitis Essential hypertension Pure hypercholesterolemia Overweight Psoriasis History of cerebrovascular accident Atrial fibrillation (HCC) Chronic obstructive pulmonary disease (HCC) Isolation/Infection: No active isolations No active infections Nurse Assessment: Last Vital Signs: BP 148/72 (BP Location: Right arm) Pulse 72 Temp 36.7 C (98.1 F) (Temporal) Resp 18 Ht 1.626 m (5' 4") Wt 72.3 kg (159 lb 8 oz) SpO2 98% BMI 27.38 kg/m Last documented pain score (0-10 scale): Last Weight: Wt Readings from Last 1 Encounters: 04/03/24 72.3 kg (159 lb 8 oz) Mental Status: {HECTOR Patient Mental Status:89797} IV Access: {HECTOR IV Access:35144} Nursing Mobility/ADLs: Walking {MAHESH ADL:::"Independent"} Transfer {MAHESH ADL:::"Independent"} Bathing {MAHESH ADL:::"Independent"} Dressing {MAHESH ADL:::"Independent"} Toileting {MAHESH ADL:::"Independent"} Feeding {MAHESH ADL:::"Independent"} Lip Cutter {MAHESH ADL:::"Independent"} Med Delivery {yes/no:04856} Wound Care Documentation and Therapy: Elimination: Continence: Bowel: {yes/no:86545} Bladder: {yes/no:81993} Urinary Catheter: {HECTOR Urinary Catheter:79445} Colostomy/Ileostomy/Ileal Conduit: {YES / NO:} Date of Last BM: Intake/Output Summary (Last 24 hours) at 04/04/2024 1135 Last data filed at 04/03/20242056 Gross per 24 hour Intake 500 ml Output -- Net 500 ml I/O last 3 completed shifts: In: 500 (6.9 mL/kg) [IV Piggyback:500] Out: - (0 mL/kg) Weight: 72.3 kg Safety Concerns: {HECTOR Safety Concerns:12051} Impairments/Disabilities: {HECTOR Impairments/Disabilities:52818} Nutrition Therapy: Current Nutrition Therapy: {HECTOR Diet List:36152} Routes of Feeding: {routes of feedin} Liquids: {liquid consistency:07484} Daily Fluid Restriction: {daily fluid restriction:57025} Last Modified Barium Swallow with Video (Video Swallowing Test): {done not done:33038} Treatments at the Time of Hospital Discharge: Respiratory Treatments: Oxygen Therapy: {Therapy; copd oxygen:66242} Ventilator: {HECTOR Ventilator:84131} Rehab Therapies: {GEN THERAPY DISCIPLINE SCAL:7710813} Weight Bearing Status/Restrictions: {POD WEIGHT BEARIN} Other Medical Equipment (for information only, NOT a DME order): {Assistive Devices DME:98461} Other Treatments: Patient's personal belongings (please select all that are sent with patient): {HECTOR Patient Belongings:57687} RN SIGNATURE: {E-signature:65981} CASE MANAGEMENT/SOCIAL WORK SECTION Inpatient Status Date: Discharging to Facility/ Agency Name: [facility] Address: [address] [facility] [address] [place] [address] Dialysis Facility (if applicable) Name: Address: Dialysis Schedule: Phone: Fax: Soldering Inspector/Grinding Wheel Facer signature: {E-signature:68687} PHYSICIAN SECTION Name: Mel Pop Prognosis: {Rehab Prognosis:38735} Condition at Discharge: {Patient Condition:61157} Rehab Potential (if transferring to Rehab): {Rehab Prognosis:06499} Recommended Labs or Other Treatments After Discharge: The individual is being admitted to a nursing facility directly from an [facility] or a unit of a [facility] that is not operated by or licensed by [facility] under section 5119.14 or 5160-3-15.1 5 The individual requires the level of services provided by a nursing facility for the condition for which he or she was treated in the hospital and, Physician Certification: I certify the above information and transfer of Mel Pop is necessary for the continuing treatment of the diagnosis listed and that she requires {HECTOR Level of Care:60816} for {greater less than:84322} 30 days. Update Admission H&P: {HECTOR Changes in H&P:05398} PHYSICIAN SIGNATURE: {E-signature:64440} documented in this encounter [facility] 04-07-2024 Nurse Note NO changes to heparin infusion at this time. [facility] 04-06-2024 Note Formatting of this n ote is different from the original. Images from the original note were not included. Care Management Progress Note Pt s/p thrombectomy this am with vascular. Remains on heparin gtt while transitioning to coumadin. Pt active with [facility]- will continue services at discharge. Discharge Milestones and Delays Expected date/time: 04/08/2024 Expected discharge disposition: Home or Self Care Discharge Milestones Place discharge order Complete med reconciliation Case mgmt discharge readiness Clinical Stability Diagnostic Workup Facility Choice Selection Patient Education Complete Expected Discharge History Expected Date/Time Set By Reviewed At 04/08/2024 Virginia Rehman RN 04/06/2024 8:13 AM hep gtt, poss thrombectomy 04/07/2024 Virginia Rehman RN 04/05/2024 8:03 AM hep gtt, poss thrombectomy tomorrow" 04/06/2024 Virginia Rehman RN 04/04/2024 8:48 AM hep gtt, oliva lower US, vasc consult" 04/06/2024 Bernie Cutler APRN - APPLICATIONS PROJECT MANAGER 04/04/2024 4:04 AM 04/06/2024 Bernie Cutler APRN - APPLICATIONS PROJECT MANAGER 04/03/2024 11:17 PM Length of Stay (Days): 3 GMLOS: 3.1 [facility] 04-06-2024 Note Formatting of this n ote is different from the original. Images from the original note were not included. Care Management Progress Note Pt s/p thrombectomy this am with vascular. Remains on heparin gtt while transitioning to coumadin. Pt active with [facility]- will continue services at discharge. Discharge Milestones and Delays Expected date/time: 04/08/2024 Expected discharge disposition: Home or Self Care Discharge Milestones Place discharge order Complete med reconciliation Case mgmt discharge readiness Clinical Stability Diagnostic Workup Facility Choice Selection Patient Education Complete Expected Discharge History Expected Date/Time Set By Reviewed At 04/08/2024 Virginia Rehman RN 04/06/2024 8:13 AM hep gtt, poss thrombectomy 04/07/2024 Virginia Rehman RN 04/05/2024 8:03 AM hep gtt, poss thrombectomy tomorrow" 04/06/2024 Virginia Rehman RN 04/04/2024 8:48 AM hep gtt, oliva lower US, vasc consult" 04/06/2024 Bernie Cutler APRN - APPLICATIONS PROJECT MANAGER 04/04/2024 4:04 AM 04/06/2024 Bernie Cutler, FOOD SERVICES DIRECTOR - APPLICATIONS PROJECT MANAGER 04/03/2024 11:17 PM Length of Stay (Days): 3 GMLOS: 3.1 [facility] 04-06-2024 Note Formatting of this n ote might be different from the original. Patient report called to 4N RN and denies any further questions. Patient resting comfortably and no signs of distress. Per resident patient to lay flat for 2 hours and restart heparin GTT at 1215. Transport notified. [facility] 04-06-2024 Note Formatting of this n ote might be different from the original. Patient report called to 4N RN and denies any further questions. Patient resting comfortably and no signs of distress. Per resident patient to lay flat for 2 hours and restart heparin GTT at 1215. Transport notified. [facility] 04-06-2024 Note Formatting of this n ote might be different from the original. SW assisted patient with completion of Health Care Power of [employer]. One copy placed in patient chart, one copy sent to medical records and two copies given to patient. Requested by patient, while at bedside this SW spoke to patient's son via patients phone to explain that HCPOA was being completed by patient. Patients son José Miguel Castillo ([phone]) agreed to be this patients agent on the HCPOA and confirmed understanding. [facility] 04-06-2024 Note Formatting of this n ote might be different from the original. KEESHA assisted patient with completion of Health Care Power of [employer]er. One copy placed in patient chart, one copy sent to medical records and two copies given to patient. Requested by patient, while at bedside this SW spoke to patient's son via patients phone to explain that HCPOA was being completed by patient. Patients son Bacel Castillo ([phone]) agreed to be this patients agent on the HCPOA and confirmed understanding. [facility] 04-06-2024 Note Formatting of this n ote might be different from the original. OPERATIVE REPORT DATE OF SERVICE: 04/06/2024 PRE-PROCEDURE DIAGNOSIS: Extensive right lower extremity deep venous thrombosis POST-PROCEDURE DIAGNOSIS: As above PROCEDURE PERFORMED: 1) Percutaneous access to the right popliteal vein 2) Right lower extremity and iliocaval venography 3) suction thrombectomy with Penumbra Flash of inferior vena cava, right common iliac vein, right external iliac vein, right common femoral vein, and right femoral vein 4) Completion venogram SURGEON: Kristyn Blankenship MD ASSISTANTS: Selene Naik MD (PGY-4) FINDINGS: Consistent with diagnosis. Thrombus present in previously placed IVC Filter and inferior vena cava as well as in the imaged vessels on duplex. Completion venogram shows significant improvement with resolution of thrombus in the right lower extremity. A small amount of thrombus remained present within the filter. ANESTHESIA: General ESTIMATED BLOOD LOSS: 300 ml COMPLICATIONS: None SPECIMENS: None IMPLANTS: None WOUND CLASS: 1 FLUORO TIME: 8.3 min DOSE: 251 mGy CONTRAST: 50 ml INDICATIONS FOR PROCEDURE: The patient is an 83-year-old female who presented with right lower extremity pain to the emergency department. While she has concurrent lower extremity arterial disease, she had significant right lower extremity swelling. A venous duplex was performed which revealed extensive right lower extremity DVT with proximal extension into the external iliac vein. It was noted on that examination of the right common iliac vein was not visualized. The patient was trialed on nonoperative management with anticoagulation however her pain persisted which limited her walking abilities. Mechanical thrombectomy was recommended. Risks benefits and alternatives were discussed with the patient and she elected to proceed. PROCEDURE IN DETAIL: The patient was taken to the operating room placed in the prone position. General anesthesia was induced prior to positioning. The patient's bilateral popliteal spaces were prepped and draped in the usual sterile fashion. A timeout was performed verifying the correct patient, side, site, procedure to be performed. Under ultrasound guidance, the patient's right popliteal vein was accessed using a micropuncture needle kit and Seldinger technique was used to place a 5 Cameroonian sheath. A Bentson wire was able to be advanced in the inferior vena cava without difficulty. The 5 Cameroonian sheath was then upsized to a 16 Cameroonian sheath and the penumbra flash suction thrombectomy device was prepared per glass polisher's instructions. The patient was also given 5000 units of heparin for systemic anticoagulation at this time. The Penumbra device was then inserted through the 16 Cameroonian sheath and a suction thrombectomy was performed of the right lower extremity including the right femoral vein, right common femoral vein, right external iliac vein, right common iliac vein, and inferior vena cava. Frequent venograms were performed to ensure appropriate device placement. Of note, a previously placed inferior vena cava filter was present with struts lying outside of the inferior vena cava. Thrombus was present within the filter as well as in the inferior vena cava below the filter which was not specifically visualized on preoperative imaging. Several passes were made with the penumbra suction device which showed significant improvement in the thrombus burden within inferior vena cava as well as the common iliac vein on the right. Venogram of the right lower extremity showed resolution of thrombus within the common iliac vein, external iliac vein, common femoral vein, and femoral vein following mechanical thrombectomy. The device was removed as was the 16 Cameroonian sheath and an 0 silk suture was placed at the access site with manual pressure held to achieve hemostasis. A sterile dressing was then applied. All sponge and needle counts were correct at the conclusion of the case. The patient was awakened from general anesthesia and transferred to the recovery area in stable condition. Doppler signals remained present in the AT and PT at the conclusion of the case. Kristyn Blankenship MD Vascular Surgery [facility] 04-06-2024 Note Formatting of this n ote is different from the original. Date: 04/06/2024 Location: [facility] OR Name: Mel Pop, : 1940, Diagnosis Pre-op Diagnosis * Right leg DVT (HCC) [I82.401] Post-op Diagnosis * Right leg DVT (HCC) [I82.401] Procedures RIGHT LOWER EXTREMITY VENOUS MECHANICAL THROMBECTOMY 58142 - ND PRQ TRANSLUMINAL MECHANICAL THROMBECTOMY VEIN Surgeons * Kristyn Blankenship - Primary Procedure Summary Anesthesia: General ASA: III Estimated Blood Loss: 300 mL Drains: * None in log * Staff: Used Car Renovator: Negrita Rey, RN; Amira Burton RN Scrub Person: Linnette Shukla RN Findings: Significant clot burden removed. Post op pulse exam in RLE: Strong AT, faint PT Patient to lay flat 2hrs post op Restart heparin gtt at 12:15PM Okay to resume regular diet Behind knee suture to removed tomorrow Complications: None; patient tolerated the procedure well. Specimens Collected: Order Name Source Comment Collection Info Order Time BLOOD TYPE AND SCREEN GEL Blood, Venous 04/06/2024 9:58 AM Wound Class: Class I: Clean Blood Products: None Prophylactic Antibiotics: Pre-operative antibiotics were not given because antibiotics are not indicated for this procedure. [facility] 04-06-2024 Note Formatting of this n ote might be different from the original. OPERATIVE REPORT DATE OF SERVICE: 04/06/2024 PRE-PROCEDURE DIAGNOSIS: Extensive right lower extremity deep venous thrombosis POST-PROCEDURE DIAGNOSIS: As above PROCEDURE PERFORMED: 1) Percutaneous access to the right popliteal vein 2) Right lower extremity and iliocaval venography 3) suction thrombectomy with Penumbra Flash of inferior vena cava, right common iliac vein, right external iliac vein, right common femoral vein, and right femoral vein 4) Completion venogram SURGEON: Kristyn Blankenship MD ASSISTANTS: Selene Naik MD (PGY-4) FINDINGS: Consistent with diagnosis. Thrombus present in previously placed IVC Filter and inferior vena cava as well as in the imaged vessels on duplex. Completion venogram shows significant improvement with resolution of thrombus in the right lower extremity. A small amount of thrombus remained present within the filter. ANESTHESIA: General ESTIMATED BLOOD LOSS: 300 ml COMPLICATIONS: None SPECIMENS: None IMPLANTS: None WOUND CLASS: 1 FLUORO TIME: 8.3 min DOSE: 251 mGy CONTRAST: 50 ml INDICATIONS FOR PROCEDURE: The patient is an 83-year-old female who presented with right lower extremity pain to the emergency department. While she has concurrent lower extremity arterial disease, she had significant right lower extremity swelling. A venous duplex was performed which revealed extensive right lower extremity DVT with proximal extension into the external iliac vein. It was noted on that examination of the right common iliac vein was not visualized. The patient was trialed on nonoperative management with anticoagulation however her pain persisted which limited her walking abilities. Mechanical thrombectomy was recommended. Risks benefits and alternatives were discussed with the patient and she elected to proceed. PROCEDURE IN DETAIL: The patient was taken to the operating room placed in the prone position. General anesthesia was induced prior to positioning. The patient's bilateral popliteal spaces were prepped and draped in the usual sterile fashion. A timeout was performed verifying the correct patient, side, site, procedure to be performed. Under ultrasound guidance, the patient's right popliteal vein was accessed using a micropuncture needle kit and Seldinger technique was used to place a 5 Cameroonian sheath. A WatchDoxson wire was able to be advanced in the inferior vena cava without difficulty. The 5 Cameroonian sheath was then upsized to a 16 Cameroonian sheath and the penumbra flash suction thrombectomy device was prepared per glass polisher's instructions. The patient was also given 5000 units of heparin for systemic anticoagulation at this time. The Penumbra device was then inserted through the 16 Cameroonian sheath and a suction thrombectomy was performed of the right lower extremity including the right femoral vein, right common femoral vein, right external iliac vein, right common iliac vein, and inferior vena cava. Frequent venograms were performed to ensure appropriate device placement. Of note, a previously placed inferior vena cava filter was present with struts lying outside of the inferior vena cava. Thrombus was present within the filter as well as in the inferior vena cava below the filter which was not specifically visualized on preoperative imaging. Several passes were made with the penumbra suction device which showed significant improvement in the thrombus burden within inferior vena cava as well as the common iliac vein on the right. Venogram of the right lower extremity showed resolution of thrombus within the common iliac vein, external iliac vein, common femoral vein, and femoral vein following mechanical thrombectomy. The device was removed as was the 16 Cameroonian sheath and an 0 silk suture was placed at the access site with manual pressure held to achieve hemostasis. A sterile dressing was then applied. All sponge and needle counts were correct at the conclusion of the case. The patient was awakened from general anesthesia and transferred to the recovery area in stable condition. Doppler signals remained present in the AT and PT at the conclusion of the case. Kristyn Blankenship MD Vascular Surgery [facility] 04-06-2024 Note Formatting of this n ote is different from the original. Date: 04/06/2024 Location: [facility] OR Name: Mel Pop, : 1940, Diagnosis Pre-op Diagnosis * Right leg DVT (HCC) [I82.401] Post-op Diagnosis * Right leg DVT (HCC) [I82.401] Procedures RIGHT LOWER EXTREMITY VENOUS MECHANICAL THROMBECTOMY 92952 - ND PRQ TRANSLUMINAL MECHANICAL THROMBECTOMY VEIN Surgeons * Kristyn Blankenship - Primary Procedure Summary Anesthesia: General ASA: III Estimated Blood Loss: 300 mL Drains: * None in log * Staff: Used Car Renovator: Negrita Rey RN; Amira Burton RN Scrub Person: Linnette Shukla RN Findings: Significant clot burden removed. Post op pulse exam in RLE: Strong AT, faint PT Patient to lay flat 2hrs post op Restart heparin gtt at 12:15PM Okay to resume regular diet Behind knee suture to removed tomorrow Complications: None; patient tolerated the procedure well. Specimens Collected: Order Name Source Comment Collection Info Order Time BLOOD TYPE AND SCREEN GEL Blood, Venous 04/06/2024 9:58 AM Wound Class: Class I: Clean Blood Products: None Prophylactic Antibiotics: Pre-operative antibiotics were not given because antibiotics are not indicated for this procedure. [facility] 04-06-2024 Note Formatting of this n ote might be different from the original. Dr Blankenship at bedside. She called family to update them on procedure time change [facility] 04-06-2024 Note Formatting of this n ote might be different from the original. Dr Blankenship at bedside. She called family to update them on procedure time change [facility] 04-06-[address] Blankenship at bedside. She called family to update them on procedure time change [facility] 04-05-2024 Note Formatting of this n ote is different from the original. Images from the original note were not included. Care Management Progress Note Vascular following with noted plan for possible thrombectomy tomorrow. Remains on heparin gtt while transitioning to coumadin per oncology recommendation. Pt from home alone- indep and active with [facility]- will return. Discharge Milestones and Delays Expected date/time: 04/07/2024 Expected discharge disposition: Home or Self Care Discharge Milestones Place discharge order Complete med reconciliation Case mgmt discharge readiness Clinical Stability Diagnostic Workup Facility Choice Selection Patient Education Complete Expected Discharge History Expected Date/Time Set By Reviewed At 04/07/2024 Virginia Rehman RN 04/05/2024 8:03 AM hep gtt, poss thrombectomy tomorrow" 04/06/2024 Virginia Rehman RN 04/04/2024 8:48 AM hep gtt, oliva lower US, vasc consult" 04/06/2024 SEBASTIAN Herrera CNP 04/04/2024 4:04 AM 04/06/2024 SEBASTIAN Herrera CNP 04/03/2024 11:17 PM Length of Stay (Days): 2 GMLOS: 3.1 [facility] 04-05-2024 Note Formatting of this n ote is different from the original. Images from the original note were not included. Care Management Progress Note Vascular following with noted plan for possible thrombectomy tomorrow. Remains on heparin gtt while transitioning to coumadin per oncology recommendation. Pt from home alone- indep and active with [facility]- will return. Discharge Milestones and Delays Expected date/time: 04/07/2024 Expected discharge disposition: Home or Self Care Discharge Milestones Place discharge order Complete med reconciliation Case mgmt discharge readiness Clinical Stability Diagnostic Workup Facility Choice Selection Patient Education Complete Expected Discharge History Expected Date/Time Set By Reviewed At 04/07/2024 Virginia Rehman RN 04/05/2024 8:03 AM hep gtt, poss thrombectomy tomorrow" 04/06/2024 Virginia Rehman RN 04/04/2024 8:48 AM hep gtt, oliva lower US, vasc consult" 04/06/2024 Bernie Cutler APRN - APPLICATIONS PROJECT MANAGER 04/04/2024 4:04 AM 04/06/2024 Bernie Cutler APRN - APPLICATIONS PROJECT MANAGER 04/03/2024 11:17 PM Length of Stay (Days): 2 GMLOS: 3.1 [facility] 04-05-2024 Plan of care note The patient is Moderately Stable - Low risk of patient condition declining or worsening The patient's goals for the shift include met The clinical goals for the shift include met [facility] 04-04-2024 Consult note Formatting of th is note is different from the original. Images from the original note were not included. [facility] Hematology Oncology Inpatient Consultation [facility] Mel Pop : 1940(83 y.o.) Date: April 04, 2024 Attending: Dr. Patel Reason for consult: Primary Care Physician - Jared Evans MD Date of Admission - 04/03/2024 5:47 PM Subjective: Chief Complaint Patient presents with Numbness Leg Swelling HPI Mel Pop is a 83 y.o. woman with a history of severe atherosclerosis, COPD, former smoker, diverticulosis, afib, hypertension, and GERD who presented to [facility] for right lower extremity pain. Reports after working with home PT, she attempted to stand and almost fell. Reports her pain was in her right calf and upper right leg. Also had tingling, numbness, and weakness. Labs with creatinine 1.54, CBC WNL. Coags WNL. CTA with severe lower extremity atherosclerotic disease, bilateral superficial femoral artery occlusion, severely diseased trifurcation vessels. Vascular surgery recommended transfer to [facility]. PVR and BLE US results pending however prelim revealed an acute extensive DVT in the right lower extremity from the external iliac to peroneal vein. 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 Hematology consulted for acute DVT while on Eliquis. She also has a history of DVT in 2021 and an IVC filter documented on imaging. Unclear compliance with Eliquis. Reports she probably misses doses occasionally, but is not clear about if she has missed any recently. She uses a pill box. I called her listed contacts (her friend and [id number] however they do not manage her pill box. Fidel reports the patient gets confused at times but she does not think she has missed any doses). She is a poor historian in regards to her clotting history. She does not recall a history of PE and does not remember why an IVC filter was placed. She does remember her admission in 2021 for an extensive blood clot in her LLE. She reports a history of afib. She also reports being on coumadin in the past. Lives alone. Former smoker of 60 pack years, quit in 2021. Occasional alcohol. Denies recent falls, prolonged travel, trauma. Reports she is active at home because she has to let her dog out. Has had a colonoscopy in past, unsure when. 2021 records reviewed, admitted for acute LLE ischemia from thrombosis vs embolism of the right femoral artery, she was discharged on 6 mos of eliquis. I have left a voicemail with [facility] pharmacy in [place] to see if the Eliquis is being filled, will await call back. Past Medical History: Diagnosis Date Asthma Essential hypertension 03/07/2020 GERD (gastroesophageal reflux disease) Hiatal hernia Pure hypercholesterolemia 03/07/2020 Past Surgical History: Procedure Laterality Date FINGER AMPUTATION Right 03/07/2020 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 HYSTERECTOMY ORTHOPEDIC SURGERY No family history on file. Social History Socioeconomic History Marital status: Spouse name: Not on file Number of children: Not on file Years of education: Not on file Highest education level: Not on file Occupational History Not on file Tobacco Use Smoking status: Every Day Current packs/day: 0.50 Types: Cigarettes Smokeless tobacco: Never Substance and Sexual Activity Alcohol use: Yes Alcohol/week: 1.0 standard drink of alcohol Types: 1 Cans of beer per week Drug use: Never Sexual activity: Not on file Other Topics Concern Not on file Social History Narrative Not on file Social Determinants of Health Financial Resource Strain: Low Risk (04/04/2024) Overall Financial Resource Strain (CARDIA) Difficulty of Paying Living Expenses: Not very hard Food Insecurity: No Food Insecurity (04/04/2024) Hunger Vital Sign Worried About Running Out of Food in the Last Year: Never true Ran Out of Food in the Last Year: Never true Transportation Needs: No Transportation Needs (04/04/2024) PRAPARE - Transportation Lack of Transportation (Medical): No Lack of Transportation (Non-Medical): No Physical Activity: Inactive (04/04/2024) Exercise Vital Sign Days of Exercise per Week: 0 days Minutes of Exercise per Session: 0 min Stress: No Stress Concern Present (04/04/2024) [employer] - Occupational Stress Questionnaire Feeling of Stress : Not at all Social Connections: Moderately Isolated (04/04/2024) Social Connection and Isolation Panel [NHANES] Frequency of Communication with Friends and Family: More than three times a week Frequency of Social Gatherings with Friends and Family: More than three times a week Attends [employer] Services: 1 to 4 times per year Active Member of Clubs or Organizations: No Attends Club or Organization Meetings: Never Marital Status: Intimate Partner Violence: Not At Risk (04/04/2024) Humiliation, Afraid, Rape, and Kick questionnaire Fear of Current or Ex-Partner: No Emotionally Abused: No Physically Abused: No Sexually Abused: No Housing Stability: Low Risk (04/04/2024) Housing Stability Vital Sign Unable to Pay for Housing in the Last Year: No Number of Times Moved in the Last Year: 0 Homeless in the Last Year: No Allergies Allergen Reactions Advair Hfa [Fluticasone-Salmeterol] Arm numbness Amoxicillin Vomiting and diarrhea Percocet [Oxycodone-Acetaminophen] Itching Prior to Admission medications Medication Sig Start Date End Date Taking? Authorizing Provider albuterol 108 (90 Base) MCG/ACT inhaler inhale 1 puff by mouth and INTO THE LUNGS every 6 hours if needed for shortness of breath 02/17/23 Yes Historical Provider, ascorbic acid (Vitamin C) 500 MG tablet Take 500 mg by mouth in the morning and 500 mg at noon and 500 mg in the evening. 06/28/22 Yes Historical Provider, Eliquis 5 MG tablet Take 5 mg by mouth 2 times daily. 02/18/23 Yes Historical Provider, lisinopril 5 MG tablet Take 5 mg by mouth in the morning. 05/26/22 Yes Historical Provider, pantoprazole (ProtoNix) 40 MG EC tablet 07/18/23 Yes Historical Provider, MD Mark Gomez 100-62.5-25 MCG/ACT aerosol powder 05/19/23 Yes Historical Provider, Review of Systems Constitutional: Negative for activity change, appetite change, chills, diaphoresis, fatigue, fever and unexpected weight change. HENT: Negative for dental problem, facial swelling, mouth sores, nosebleeds, trouble swallowing and voice change. Eyes: Negative for photophobia and visual disturbance. Respiratory: Negative for cough, shortness of breath and wheezing. Cardiovascular: Negative for chest pain and leg swelling. Gastrointestinal: Negative for abdominal distention, abdominal pain, blood in stool, constipation, diarrhea, nausea and vomiting. Endocrine: Negative for polydipsia, polyphagia and polyuria. Genitourinary: Negative for difficulty urinating and dysuria. Musculoskeletal: Positive for arthralgias and gait problem. Negative for back pain. Skin: Negative for color change, rash and wound. Neurological: Positive for weakness and numbness. Negative for dizziness, seizures, speech difficulty and headaches. Hematological: Negative for adenopathy. Does not bruise/bleed easily. Psychiatric/Behavioral: Negative for agitation and confusion. Objective: ECOG PS: 2 Vitals: 04/04/24 0240 04/04/24 0314 04/04/24 0404 04/04/24 0930 BP: (!) 147/67 134/68 145/80 148/72 BP Location: Right arm Right arm Pulse: 75 75 74 72 Resp: Temp: 36.4 C (97.6 F) 36.7 C (98.1 F) TempSrc: Temporal Temporal SpO2: 96% 97% 98% 98% Weight: Height: Wt Readings from Last 3 Encounters: 04/03/24 72.3 kg (159 lb 8 oz) 07/27/23 72.1 kg (159 lb) 03/20/20 68.9 kg (152 lb) Physical Exam Constitutional: Appearance: She is ill-appearing (chronic). HENT: Head: Normocephalic and atraumatic. Right Ear: External ear normal. Left Ear: External ear normal. Nose: Nose normal. Mouth/Throat: Pharynx: No oropharyngeal exudate. Eyes: Conjunctiva/sclera: Conjunctivae normal. Cardiovascular: Rate and Rhythm: Normal rate and regular rhythm. Pulses: Normal pulses. Pulmonary: Comments: Diminished breath sounds. Abdominal: General: Bowel sounds are normal. Palpations: Abdomen is soft. Musculoskeletal: Right lower leg: Edema present. Left lower leg: Edema present. Lymphadenopathy: Cervical: No cervical adenopathy. Skin: General: Skin is warm and dry. Comments: Vascular changes of BLE Neurological: Mental Status: She is oriented to person, place, and time. Psychiatric: Mood and Affect: Mood normal. INTAKE/OUTPUT: Intake/Output Summary (Last 24 hours) at 04/04/2024 1319 Last data filed at 04/03/20242056 Gross per 24 hour Intake 500 ml Output -- Net 500 ml Labs Lab Results Component Value Date NA 135 04/04/2024 K 4.5 04/04/2024 CL 110 (H) 04/04/2024 CO2 18 (L) 04/04/2024 BUN 30 (H) 04/04/2024 CREATININE 1.45 (H) 04/04/2024 GLUCOSE 100 04/04/2024 CALCIUM 9.3 04/04/2024 PROT 7.7 04/03/2024 BILITOT 1.1 04/03/2024 ALKPHOS 91 04/03/2024 AST 19 04/03/2024 ALT 10 04/03/2024 Lab Results Component Value Date WBC 8.1 04/04/2024 HGB 12.5 04/04/2024 HCT 38.8 04/04/2024 MCV 92.2 04/04/2024 PLT 266 04/04/2024 Imaging ECG 12 lead Result Date: 04/04/2024 Atrial fibrillation Borderline T abnormalities, inferior leads Compared to ECG 08/28/11 Sinus rhythm no longer noted Electronically Signed On 04-04-2024 03:48:37 EDT by Sourav Swenson CTA aorta BL iliofemoral runoff w wo Result Date: 04/03/2024 Patient Name: MEL POP : 1940 [facility]#: [id number] Exam Date/Time: 04/03/2024 21:14 Procedure: CTA AORTA BL ILIOFEMORAL W WO Ordering Provider: CUTLER DANIEL Reason For Exam: Claudication or leg ischemia CTA AORTA BL ILIOFEMORAL W WO CLINICAL INDICATION: Claudication or leg ischemia TECHNIQUE: CTA abdominal aorta with bilateral lower extremity runoff. IV contrast utilized. Multiplanar reformations. 3-D reconstructions provided to better evaluate the vascular and/or osseous structures. Dose reduction was employed with automated exposure control. COMPARISON: None FINDINGS: Lung bases are clear. Mild cardiac enlargement. Solid organ evaluation limited from arterial phase bolus. Liver shows no significant abnormality. Gallbladder and biliary tree appear normal. Spleen shows no significant abnormality. Adrenal glands show no significant abnormality. Kidneys show no significant abnormality. Pancreas shows no significant abnormality. IVC filter noted. Severe diverticulosis involving the sigmoid colon. No diverticulitis seen. No bowel obstruction. Abdominal aorta shows atherosclerotic changes but no aneurysm or dissection. No significant narrowing of celiac artery origin. No significant narrowing of the SMA origin. Moderate to severe stenosis involving the right renal artery origin. Less than 50 percent stenosis left renal artery origin. YOVANI is patent. Right side: Common iliac artery shows moderate atherosclerotic changes but no high-grade stenosis. 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 Moderate stenosis of right internal iliac artery origin. External iliac artery on the right appears widely patent. Common femoral and deep femoral arteries are patent. Proximal superficial femoral artery is patent. In the mid superficial femoral artery there is multifocal stenosis, and subsequent occlusion at the level of the mid femur. Reconstitution of the proximal popliteal artery which shows multifocal stenosis. Anterior tibial artery is patent proximally, but shows no contrast enhancement past the upper to mid lower leg. Tibioperoneal trunk is patent proximally. Peroneal and posterior tibial arteries are patent proximally but show severe atherosclerotic changes and multifocal stenoses. Multi focal occlusion of posterior tibial artery which does not appear to cross the ankle. Peroneal artery also shows severe atherosclerotic disease, and is not seen past just above the ankle. Left side: Common iliac external, and internal iliac arteries appear patent. Common femoral artery is patent. Deep femoral artery is patent. Superficial femoral artery is very small proximally and is occluded just distal to its origin. There is reconstitution of the popliteal artery. Anterior tibial artery is seen proximally, no contrast opacification passed the upper to mid lower leg. Tibial peroneal trunk is patent. Posterior tibial and peritoneal arteries are patent proximally, but appear badly diseased. Peroneal artery crosses through the interosseous membrane and appears to anastomose to the distal anterior tibial artery. Posterior tibial artery does not cross the ankle, but is seen into the mid to distal lower leg. 1. Severe lower extremity atherosclerotic disease. 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 2. 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 3. Severe diverticulosis. Report Dictated on Electronically Signed By: Toño Tang MD Electronically Signed Date/Time: 04/03/2024 9:[address] head wo IV contrast Result Date: 04/03/2024 Patient Name: MEL POP : 1940 [facility]#: [id number] Exam Date/Time: 04/03/2024 21:06 Procedure: CT HEAD WO IV CONTRAST Ordering Provider: CUTLER DANIEL Reason For Exam: right leg numbness CT BRAIN WITHOUT CONTRAST CLINICAL INDICATION: right leg numbness TECHNIQUE: Noncontrast CT scan of the brain. Multiplanar reformations. Dose reduction was employed with automated exposure control. COMPARISON: None FINDINGS: Small chronic infarct in the caudal aspect of the left cerebellar hemisphere. No acute infarct or acute hemorrhage. No mass effect or midline shift. No hydrocephalus. Left globe prosthesis. 1. No acute finding. Chronic left cerebellar infarct.. Report Dictated on Electronically Signed By: Toño Tang MD Electronically Signed Date/Time: 04/03/2024 9:21 PM EDT Assessment and Plan: Acute extensive DVT of the RLE. On reported Eliquis. Currently on heparin gtt. Will d/w Dr. Patel regarding switching to coumadin given unknown compliance. Severe atherosclerosis, chronic. Vascular surgery consulted. History of LLE DVT in 2021, provoked in the setting of recent COVID. Initiated on Eliquis at that time. The patient was given the opportunity to ask questions and all questions were answered to the best of my ability. The patient agrees with the above noted plan. Thank you for allowing us to participate in this patient's care. Please call with any questions. I have spent 20 minutes preparing to see the patient, reviewing previous notes and test results, completing clinical documentation as well as with [id number] patient care, performing a medically appropriate examination, counseling / educating the patient/family/caregiver, and ordering medications, tests, or procedures. Electronically signed by Anthony Yee APRN - APPLICATIONS PROJECT MANAGER Attending Attestation Note: I have personally performed a face to face diagnostic evaluation on this patient on 04/04/24 . I have reviewed and agree with the care plan outlined above per Anthony Yee. My assessment as well as plan/recommendations are as follows: I have reviewed the entire case including the past history as well as the most recent imaging which showed an extensive right lower extremity DVT. The patient is currently on a heparin drip. With the patient previously being on Eliquis, I would classify this as an Eliquis failure. The patient has been on Coumadin in the past so we did discuss transitioning to Coumadin which she was agreeable to Our recommendation is the patient transition to Coumadin going forward for ongoing and indefinite anticoagulation Defer to primary team for bridge to Coumadin, arranging for anticoagulation clinic enrollment and follow-up. No further workup or evaluation from hematology at this point - Will sign off I spent the 45 min visit with patient , counseling patient/documenting and coordinating care regarding diagnosis, workup/testing, treatment as well as answering questions. Andre Patel MD [employer] Work Phone: 04-04-2024 Consult note Formatting of th is note is different from the original. Images from the original note were not included. [facility] Hematology Oncology Inpatient Consultation [facility] Mel Pop : 1940(83 y.o.) Date: April 04, 2024 Attending: Dr. Patel Reason for consult: Primary Care Physician - Jared Evans MD Date of Admission - 04/03/2024 5:47 PM Subjective: Chief Complaint Patient presents with Numbness Leg Swelling HPI Mel Pop is a 83 y.o. woman with a history of severe atherosclerosis, COPD, former smoker, diverticulosis, afib, hypertension, and GERD who presented to [facility] for right lower extremity pain. Reports after working with home PT, she attempted to stand and almost fell. Reports her pain was in her right calf and upper right leg. Also had tingling, numbness, and weakness. Labs with creatinine 1.54, CBC WNL. Coags WNL. CTA with severe lower extremity atherosclerotic disease, bilateral superficial femoral artery occlusion, severely diseased trifurcation vessels. Vascular surgery recommended transfer to [facility]. PVR and BLE US results pending however prelim revealed an acute extensive DVT in the right lower extremity from the external iliac to peroneal vein. 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 Hematology consulted for acute DVT while on Eliquis. She also has a history of DVT in 2021 and an IVC filter documented on imaging. Unclear compliance with Eliquis. Reports she probably misses doses occasionally, but is not clear about if she has missed any recently. She uses a pill box. I called her listed contacts (her friend and [id number] however they do not manage her pill box. Fidel reports the patient gets confused at times but she does not think she has missed any doses). She is a poor historian in regards to her clotting history. She does not recall a history of PE and does not remember why an IVC filter was placed. She does remember her admission in 2021 for an extensive blood clot in her LLE. She reports a history of afib. She also reports being on coumadin in the past. Lives alone. Former smoker of 60 pack years, quit in 2021. Occasional alcohol. Denies recent falls, prolonged travel, trauma. Reports she is active at home because she has to let her dog out. Has had a colonoscopy in past, unsure when. 2021 records reviewed, admitted for acute LLE ischemia from thrombosis vs embolism of the right femoral artery, she was discharged on 6 mos of eliquis. I have left a voicemail with [facility] pharmacy in [place] to see if the Eliquis is being filled, will await call back. Past Medical History: Diagnosis Date Asthma Essential hypertension 03/07/2020 GERD (gastroesophageal reflux disease) Hiatal hernia Pure hypercholesterolemia 03/07/2020 Past Surgical History: Procedure Laterality Date FINGER AMPUTATION Right 03/07/2020 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 HYSTERECTOMY ORTHOPEDIC SURGERY No family history on file. Social History Socioeconomic History Marital status: Spouse name: Not on file Number of children: Not on file Years of education: Not on file Highest education level: Not on file Occupational History Not on file Tobacco Use Smoking status: Every Day Current packs/day: 0.50 Types: Cigarettes Smokeless tobacco: Never Substance and Sexual Activity Alcohol use: Yes Alcohol/week: 1.0 standard drink of alcohol Types: 1 Cans of beer per week Drug use: Never Sexual activity: Not on file Other Topics Concern Not on file Social History Narrative Not on file Social Determinants of Health Financial Resource Strain: Low Risk (04/04/2024) Overall Financial Resource Strain (CARDIA) Difficulty of Paying Living Expenses: Not very hard Food Insecurity: No Food Insecurity (04/04/2024) Hunger Vital Sign Worried About Running Out of Food in the Last Year: Never true Ran Out of Food in the Last Year: Never true Transportation Needs: No Transportation Needs (04/04/2024) PRAPARE - Transportation Lack of Transportation (Medical): No Lack of Transportation (Non-Medical): No Physical Activity: Inactive (04/04/2024) Exercise Vital Sign Days of Exercise per Week: 0 days Minutes of Exercise per Session: 0 min Stress: No Stress Concern Present (04/04/2024) [employer] - Occupational Stress Questionnaire Feeling of Stress : Not at all Social Connections: Moderately Isolated (04/04/2024) Social Connection and Isolation Panel [NHANES] Frequency of Communication with Friends and Family: More than three times a week Frequency of Social Gatherings with Friends and Family: More than three times a week Attends [employer] Services: 1 to 4 times per year Active Member of Clubs or Organizations: No Attends Club or Organization Meetings: Never Marital Status: Intimate Partner Violence: Not At Risk (04/04/2024) Humiliation, Afraid, Rape, and Kick questionnaire Fear of Current or Ex-Partner: No Emotionally Abused: No Physically Abused: No Sexually Abused: No Housing Stability: Low Risk (04/04/2024) Housing Stability Vital Sign Unable to Pay for Housing in the Last Year: No Number of Times Moved in the Last Year: 0 Homeless in the Last Year: No Allergies Allergen Reactions Advair Hfa [Fluticasone-Salmeterol] Arm numbness Amoxicillin Vomiting and diarrhea Percocet [Oxycodone-Acetaminophen] Itching Prior to Admission medications Medication Sig Start Date End Date Taking? Authorizing Provider albuterol 108 (90 Base) MCG/ACT inhaler inhale 1 puff by mouth and INTO THE LUNGS every 6 hours if needed for shortness of breath 02/17/23 Yes Historical Provider, ascorbic acid (Vitamin C) 500 MG tablet Take 500 mg by mouth in the morning and 500 mg at noon and 500 mg in the evening. 06/28/22 Yes Historical Provider, Eliquis 5 MG tablet Take 5 mg by mouth 2 times daily. 02/18/23 Yes Historical Provider, lisinopril 5 MG tablet Take 5 mg by mouth in the morning. 05/26/22 Yes Historical Provider, pantoprazole (ProtoNix) 40 MG EC tablet 07/18/23 Yes Historical Provider, MD Mark Gomez 100-62.5-25 MCG/ACT aerosol powder 05/19/23 Yes Historical Provider, Review of Systems Constitutional: Negative for activity change, appetite change, chills, diaphoresis, fatigue, fever and unexpected weight change. HENT: Negative for dental problem, facial swelling, mouth sores, nosebleeds, trouble swallowing and voice change. Eyes: Negative for photophobia and visual disturbance. Respiratory: Negative for cough, shortness of breath and wheezing. Cardiovascular: Negative for chest pain and leg swelling. Gastrointestinal: Negative for abdominal distention, abdominal pain, blood in stool, constipation, diarrhea, nausea and vomiting. Endocrine: Negative for polydipsia, polyphagia and polyuria. Genitourinary: Negative for difficulty urinating and dysuria. Musculoskeletal: Positive for arthralgias and gait problem. Negative for back pain. Skin: Negative for color change, rash and wound. Neurological: Positive for weakness and numbness. Negative for dizziness, seizures, speech difficulty and headaches. Hematological: Negative for adenopathy. Does not bruise/bleed easily. Psychiatric/Behavioral: Negative for agitation and confusion. Objective: ECOG PS: 2 Vitals: 04/04/24 0240 04/04/24 0314 04/04/24 0404 04/04/24 0930 BP: (!) 147/67 134/68 145/80 148/72 BP Location: Right arm Right arm Pulse: 75 75 74 72 Resp: Temp: 36.4 C (97.6 F) 36.7 C (98.1 F) TempSrc: Temporal Temporal SpO2: 96% 97% 98% 98% Weight: Height: Wt Readings from Last 3 Encounters: 04/03/24 72.3 kg (159 lb 8 oz) 07/27/23 72.1 kg (159 lb) 03/20/20 68.9 kg (152 lb) Physical Exam Constitutional: Appearance: She is ill-appearing (chronic). HENT: Head: Normocephalic and atraumatic. Right Ear: External ear normal. Left Ear: External ear normal. Nose: Nose normal. Mouth/Throat: Pharynx: No oropharyngeal exudate. Eyes: Conjunctiva/sclera: Conjunctivae normal. Cardiovascular: Rate and Rhythm: Normal rate and regular rhythm. Pulses: Normal pulses. Pulmonary: Comments: Diminished breath sounds. Abdominal: General: Bowel sounds are normal. Palpations: Abdomen is soft. Musculoskeletal: Right lower leg: Edema present. Left lower leg: Edema present. Lymphadenopathy: Cervical: No cervical adenopathy. Skin: General: Skin is warm and dry. Comments: Vascular changes of BLE Neurological: Mental Status: She is oriented to person, place, and time. Psychiatric: Mood and Affect: Mood normal. INTAKE/OUTPUT: Intake/Output Summary (Last 24 hours) at 04/04/2024 1319 Last data filed at 04/03/20242056 Gross per 24 hour Intake 500 ml Output -- Net 500 ml Labs Lab Results Component Value Date NA 135 04/04/2024 K 4.5 04/04/2024 CL 110 (H) 04/04/2024 CO2 18 (L) 04/04/2024 BUN 30 (H) 04/04/2024 CREATININE 1.45 (H) 04/04/2024 GLUCOSE 100 04/04/2024 CALCIUM 9.3 04/04/2024 PROT 7.7 04/03/2024 BILITOT 1.1 04/03/2024 ALKPHOS 91 04/03/2024 AST 19 04/03/2024 ALT 10 04/03/2024 Lab Results Component Value Date WBC 8.1 04/04/2024 HGB 12.5 04/04/2024 HCT 38.8 04/04/2024 MCV 92.2 04/04/2024 PLT 266 04/04/2024 Imaging ECG 12 lead Result Date: 04/04/2024 Atrial fibrillation Borderline T abnormalities, inferior leads Compared to ECG 08/28/11 Sinus rhythm no longer noted Electronically Signed On 04-04-2024 03:48:37 EDT by Sourav Swenson CTA aorta BL iliofemoral runoff w wo Result Date: 04/03/2024 Patient Name: MEL POP : 1940 Exam Date/Time: 04/03/2024 21:14 Procedure: CTA AORTA BL ILIOFEMORAL W WO Ordering Provider: CUTLER DANIEL Reason For Exam: Claudication or leg ischemia CTA AORTA BL ILIOFEMORAL W WO CLINICAL INDICATION: Claudication or leg ischemia TECHNIQUE: CTA abdominal aorta with bilateral lower extremity runoff. IV contrast utilized. Multiplanar reformations. 3-D reconstructions provided to better evaluate the vascular and/or osseous structures. Dose reduction was employed with automated exposure control. COMPARISON: None FINDINGS: Lung bases are clear. Mild cardiac enlargement. Solid organ evaluation limited from arterial phase bolus. Liver shows no significant abnormality. Gallbladder and biliary tree appear normal. Spleen shows no significant abnormality. Adrenal glands show no significant abnormality. Kidneys show no significant abnormality. Pancreas shows no significant abnormality. IVC filter noted. Severe diverticulosis involving the sigmoid colon. No diverticulitis seen. No bowel obstruction. Abdominal aorta shows atherosclerotic changes but no aneurysm or dissection. No significant narrowing of celiac artery origin. No significant narrowing of the SMA origin. Moderate to severe stenosis involving the right renal artery origin. Less than 50 percent stenosis left renal artery origin. YOVANI is patent. Right side: Common iliac artery shows moderate atherosclerotic changes but no high-grade stenosis. 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 Moderate stenosis of right internal iliac artery origin. External iliac artery on the right appears widely patent. Common femoral and deep femoral arteries are patent. Proximal superficial femoral artery is patent. In the mid superficial femoral artery there is multifocal stenosis, and subsequent occlusion at the level of the mid femur. Reconstitution of the proximal popliteal artery which shows multifocal stenosis. Anterior tibial artery is patent proximally, but shows no contrast enhancement past the upper to mid lower leg. Tibioperoneal trunk is patent proximally. Peroneal and posterior tibial arteries are patent proximally but show severe atherosclerotic changes and multifocal stenoses. Multi focal occlusion of posterior tibial artery which does not appear to cross the ankle. Peroneal artery also shows severe atherosclerotic disease, and is not seen past just above the ankle. Left side: Common iliac external, and internal iliac arteries appear patent. Common femoral artery is patent. Deep femoral artery is patent. Superficial femoral artery is very small proximally and is occluded just distal to its origin. There is reconstitution of the popliteal artery. Anterior tibial artery is seen proximally, no contrast opacification passed the upper to mid lower leg. Tibial peroneal trunk is patent. Posterior tibial and peritoneal arteries are patent proximally, but appear badly diseased. Peroneal artery crosses through the interosseous membrane and appears to anastomose to the distal anterior tibial artery. Posterior tibial artery does not cross the ankle, but is seen into the mid to distal lower leg. 1. Severe lower extremity atherosclerotic disease. 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 2. 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 3. Severe diverticulosis. Report Dictated on Electronically Signed By: Toño Tang MD Electronically Signed Date/Time: 04/03/2024 9:[address] head wo IV contrast Result Date: 04/03/2024 Patient Name: MEL POP : 1940 [facility]ly [facility]#: [id number] Exam Date/Time: 04/03/2024 21:06 Procedure: CT HEAD WO IV CONTRAST Ordering Provider: CUTLER DANIEL Reason For Exam: right leg numbness CT BRAIN WITHOUT CONTRAST CLINICAL INDICATION: right leg numbness TECHNIQUE: Noncontrast CT scan of the brain. Multiplanar reformations. Dose reduction was employed with automated exposure control. COMPARISON: None FINDINGS: Small chronic infarct in the caudal aspect of the left cerebellar hemisphere. No acute infarct or acute hemorrhage. No mass effect or midline shift. No hydrocephalus. Left globe prosthesis. 1. No acute finding. Chronic left cerebellar infarct.. Report Dictated on Electronically Signed By: Toño Tang MD Electronically Signed Date/Time: 04/03/2024 9:21 PM EDT Assessment and Plan: Acute extensive DVT of the RLE. On reported Eliquis. Currently on heparin gtt. Will d/w Dr. Patel regarding switching to coumadin given unknown compliance. Severe atherosclerosis, chronic. Vascular surgery consulted. History of LLE DVT in 2021, provoked in the setting of recent COVID. Initiated on Eliquis at that time. The patient was given the opportunity to ask questions and all questions were answered to the best of my ability. The patient agrees with the above noted plan. Thank you for allowing us to participate in this patient's care. Please call with any questions. I have spent 20 minutes preparing to see the patient, reviewing previous notes and test results, completing clinical documentation as well as with [id number] patient care, performing a medically appropriate examination, counseling / educating the patient/family/caregiver, and ordering medications, tests, or procedures. Electronically signed by Anthony Yee APRN - SHAMIKA Attending Attestation Note: I have personally performed a face to face diagnostic evaluation on this patient on 04/04/24 . I have reviewed and agree with the care plan outlined above per Anthony Yee. My assessment as well as plan/recommendations are as follows: I have reviewed the entire case including the past history as well as the most recent imaging which showed an extensive right lower extremity DVT. The patient is currently on a heparin drip. With the patient previously being on Eliquis, I would classify this as an Eliquis failure. The patient has been on Coumadin in the past so we did discuss transitioning to Coumadin which she was agreeable to Our recommendation is the patient transition to Coumadin going forward for ongoing and indefinite anticoagulation Defer to primary team for bridge to Coumadin, arranging for anticoagulation clinic enrollment and follow-up. No further workup or evaluation from hematology at this point - Will sign off I spent the 45 min visit with patient , counseling patient/documenting and coordinating care regarding diagnosis, workup/testing, treatment as well as answering questions. Andre Patel MD Associated Order(s): IP CONSULT TO VASCULAR SURGERY Vascular Surgery Consultation Note Reason for Consult: acute on chronic RLE pain HISTORY OF PRESENT ILLNESS: The patient is a 83 y.o. 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 Vascular surgery is consulted for evaluation and treatment. Patient reports acute on chronic pain mostly in the right lower extremity. At baseline she does have short distance claudication mostly in the right extremity. She denies wounds to the bilateral lower extremity. Her pain began acutely in the proximal right thigh and is only improved with elevation. she reports compliance with her home Eliquis. Patient is a current smoker, greater than 60-year smoking Hx. On review of chart patient afebrile, hemodynamically stable on room air. Labs with WBC 8.1, hemoglobin 12.5, platelets 266, BUN 30, creatinine 1.45. Troponin negative. Patient is now heparinized most recent PTT supratherapeutic 132. She has prelim results of her ultrasounds from today -bilateral lower extremity venous duplex shows large acute occlusive clot from the external iliac distally on the right side, her arterial PVRs show MICHELLE of 0.55 on the right and 0.62 on the left, full waveforms are not available for review. She had a CTA performed yesterday at outside hospital which shows severe diffuse atherosclerotic disease most notably mid/distal SFA occlusion on the right and proximal SFA occlusion on the left with distal collateral flow. On CT imaging patient has evidence of IVC filter in place, no procedural records in the chart. IMPRESSION: 83-year-old female with acute right lower extremity pain. At this time it would seem that her new proximal right femoral DVT is the cause of this, as opposed to her diffuse atherosclerotic disease RECOMMENDATIONS: No acute vascular surgery intervention Patient not a good candidate for surgical thrombectomy or thrombolysis due to age, baseline functional status, and burden of medical comorbidities Continue heparin drip and right lower extremity elevation Recommend hematology consult, would consider this failure of Eliquis therapy if the patient is truly compliant, will need to consider other agent Patient needs smoking cessation Discussed with Dr. Blankenship on-call vascular surgeon Lolita Sarah MD PGY5, General Surgery Pager #[phone] Past Medical History: Diagnosis Date Asthma Essential hypertension 03/07/2020 GERD (gastroesophageal reflux disease) Hiatal hernia Pure hypercholesterolemia 03/07/2020 Past Surgical History: Procedure Laterality Date FINGER AMPUTATION Right 03/07/2020 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 HYSTERECTOMY ORTHOPEDIC SURGERY Current Medications: heparin, 5-30 Units/kg/hr, Last Rate: 18 Units/kg/hr (04/04/24 0409) sodium chloride, 125 mL/hr, Last Rate: 125 mL/hr (04/03/24 1919) PRN medications: acetaminophen OR acetaminophen, albuterol, heparin, heparin, ondansetron ODT OR ondansetron, polyethylene glycol (PEG) 3350 [START ON 04/05/2024] influenza, 0.5 mL, IntraMUSCular, Once lisinopril, 5 mg, Oral, Daily mometasone-formoterol, 2 puff, Inhalation, BID pantoprazole, 40 mg, Oral, qAM AC sodium zirconium cyclosilicate, 10 g, Oral, Once tiotropium, 2 puff, Inhalation, Daily Allergies: Advair hfa [fluticasone-salmeterol], Amoxicillin, and Percocet [oxycodone-acetaminophen] Social History Socioeconomic History Marital status: Spouse name: Not on file Number of children: Not on file Years of education: Not on file Highest education level: Not on file Occupational History Not on file Tobacco Use Smoking status: Every Day Current packs/day: 0.50 Types: Cigarettes Smokeless tobacco: Never Substance and Sexual Activity Alcohol use: Yes Alcohol/week: 1.0 standard drink of alcohol Types: 1 Cans of beer per week Drug use: Never Sexual activity: Not on file Other Topics Concern Not on file Social History Narrative Not on file Social Determinants of Health Financial Resource Strain: Low Risk (04/04/2024) Overall Financial Resource Strain (CARDIA) Difficulty of Paying Living Expenses: Not very hard Food Insecurity: No Food Insecurity (04/04/2024) Hunger Vital Sign Worried About Running Out of Food in the Last Year: Never true Ran Out of Food in the Last Year: Never true Transportation Needs: No Transportation Needs (04/04/2024) PRAPARE - Transportation Lack of Transportation (Medical): No Lack of Transportation (Non-Medical): No Physical Activity: Inactive (04/04/2024) Exercise Vital Sign Days of Exercise per Week: 0 days Minutes of Exercise per Session: 0 min Stress: No Stress Concern Present (04/04/2024) [employer] - Occupational Stress Questionnaire Feeling of Stress : Not at all Social Connections: Moderately Isolated (04/04/2024) Social Connection and Isolation Panel [NHANES] Frequency of Communication with Friends and Family: More than three times a week Frequency of Social Gatherings with Friends and Family: More than three times a week Attends [employer] Services: 1 to 4 times per year Active Member of Clubs or Organizations: No Attends Club or Organization Meetings: Never Marital Status: Intimate Partner Violence: Not At Risk (04/04/2024) Humiliation, Afraid, Rape, and Kick questionnaire Fear of Current or Ex-Partner: No Emotionally Abused: No Physically Abused: No Sexually Abused: No Housing Stability: Low Risk (04/04/2024) Housing Stability Vital Sign Unable to Pay for Housing in the Last Year: No Number of Times Moved in the Last Year: 0 Homeless in the Last Year: No No family history on file. REVIEW OF SYSTEMS: The chart was reviewed. Review of Systems 11 point review systems obtained, negative unless listed in HPI LABS: Lab Results Component Value Date CREATININE 1.54 (H) 04/03/2024 Lab Results Component Value Date WBC 9.3 04/03/2024 HGB 12.7 04/03/2024 HCT 38.6 04/03/2024 MCV 92.3 04/03/2024 PLT 283 04/03/2024 Lab Results Component Value Date INR 1.0 04/03/2024 PROTIME 11.7 04/03/2024 No results found for: "VLDL" PHYSICAL EXAM: Vitals: 04/04/24 0404 BP: 145/80 Pulse: 74 Resp: 16 Temp: 36.4 C (97.6 F) SpO2: 98% Physical Exam Constitutional: General: She is not in acute distress. Appearance: Normal appearance. HENT: Head: Normocephalic and atraumatic. Right Ear: External ear normal. Left Ear: External ear normal. Nose: No congestion. Mouth/Throat: Mouth: Mucous membranes are moist. Pharynx: No oropharyngeal exudate. Eyes: Pupils: Pupils are equal, round, and reactive to light. Cardiovascular: Rate and Rhythm: Normal rate and regular rhythm. Heart sounds: No murmur heard. Pulmonary: Effort: Pulmonary effort is normal. No respiratory distress. Abdominal: General: Abdomen is flat. There is no distension. Tenderness: There is no abdominal tenderness. Musculoskeletal: General: Swelling and tenderness present. Normal range of motion. Cervical back: Normal range of motion. Right lower leg: Edema present. Left lower leg: No edema. Skin: General: Skin is warm. Capillary Refill: Capillary refill takes 2 to 3 seconds. Coloration: Skin is not jaundiced. Neurological: General: No focal deficit present. Mental Status: She is alert and oriented to person, place, and time. Psychiatric: Mood and Affect: Mood normal. Behavior: Behavior normal. Vascular exam: Right lower extremity mildly swollen and tender, unable to evaluate skin due to patient wearing pants. She has chronic telangiectasias to the bilateral feet. She has very weak PT and DP Doppler signals bilaterally LABS: Lab Results Component Value Date WBC 9.3 04/03/2024 HGB 12.7 04/03/2024 HCT 38.6 04/03/2024 PLT 283 04/03/2024 PROTIME 11.7 04/03/2024 INR 1.0 04/03/2024 K 5.7 (H) 04/03/2024 BUN 29 (H) 04/03/2024 CREATININE 1.54 (H) 04/03/2024 VASCULAR TESTING: Patient Name: MEL POP : 1940 [facility]#: [id number] Exam Date/Time: 04/03/2024 21:14 Procedure: CTA AORTA BL ILIOFEMORAL W WO Ordering Provider: CUTLER DANIEL Reason For Exam: Claudication or leg ischemia CTA AORTA BL ILIOFEMORAL W WO CLINICAL INDICATION: Claudication or leg ischemia TECHNIQUE: CTA abdominal aorta with bilateral lower extremity runoff. IV contrast utilized. Multiplanar reformations. 3-D reconstructions provided to better evaluate the vascular and/or osseous structures. Dose reduction was employed with automated exposure control. COMPARISON: None FINDINGS: Lung bases are clear. Mild cardiac enlargement. Solid organ evaluation limited from arterial phase bolus. Liver shows no significant abnormality. Gallbladder and biliary tree appear normal. Spleen shows no significant abnormality. Adrenal glands show no significant abnormality. Kidneys show no significant abnormality. Pancreas shows no significant abnormality. IVC filter noted. Severe diverticulosis involving the sigmoid colon. No diverticulitis seen. No bowel obstruction. Abdominal aorta shows atherosclerotic changes but no aneurysm or dissection. No significant narrowing of celiac artery origin. No significant narrowing of the SMA origin. Moderate to severe stenosis involving the right renal artery origin. Less than 50 percent stenosis left renal artery origin. YOVANI is patent. Right side: Common iliac artery shows moderate atherosclerotic changes but no high-grade stenosis. 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 Moderate stenosis of right internal iliac artery origin. External iliac artery on the right appears widely patent. Common femoral and deep femoral arteries are patent. Proximal superficial femoral artery is patent. In the mid superficial femoral artery there is multifocal stenosis, and subsequent occlusion at the level of the mid femur. Reconstitution of the proximal popliteal artery which shows multifocal stenosis. Anterior tibial artery is patent proximally, but shows no contrast enhancement past the upper to mid lower leg. Tibioperoneal trunk is patent proximally. Peroneal and posterior tibial arteries are patent proximally but show severe atherosclerotic changes and multifocal stenoses. Multi focal occlusion of posterior tibial artery which does not appear to cross the ankle. Peroneal artery also shows severe atherosclerotic disease, and is not seen past just above the ankle. Left side: Common iliac external, and internal iliac arteries appear patent. Common femoral artery is patent. Deep femoral artery is patent. Superficial femoral artery is very small proximally and is occluded just distal to its origin. There is reconstitution of the popliteal artery. Anterior tibial artery is seen proximally, no contrast opacification passed the upper to mid lower leg. Tibial peroneal trunk is patent. Posterior tibial and peritoneal arteries are patent proximally, but appear badly diseased. Peroneal artery crosses through the interosseous membrane and appears to anastomose to the distal anterior tibial artery. Posterior tibial artery does not cross the ankle, but is seen into the mid to distal lower leg. IMPRESSION: 1. Severe lower extremity atherosclerotic disease. 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 2. 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 3. Severe diverticulosis. Report Dictated on Electronically Signed By: Toño Tang MD Electronically Signed Date/Time: 04/03/2024 9:36 PM EDT . Associated attestation - Kristyn Blankenship MD - 04/04/2024 4:47 PM EDT I saw and evaluated the patient. I agree with the findings and plan of care as documented in the resident s note unless otherwise noted below. Patient with extensive smoking history and claudication symptoms. Abs show right MICHELLE 0.55. and left MICHELLE 0.62. 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 On exam there is right lower extremity swelling. No evidence of phlegmasia. Heparin gtt initiated at [facility] prior to transfer and continued here. She notes missed doses of her Eliquis. Recommend compression and elevation of the right lower extremity. Can consider mechanical thrombectomy however given patient's age, this may be more risk than of benefit. Will continue to monitor for symptom improvement on anticoagulation alone. documented in this encounter [facility] 04-04-2024 Note Formatting of this n ote might be different from the original. Care Managment Initial Assessment Date: 04/04/2024 Patient Name: Mel Pop : 1940 Patient Information Source of Information: Patient Cognition/Language: WFL - Within Functional Limits Permission given to speak with patient artist's representative/caregiver as indicated: Confirmation of Payer with patient/family: Yes Payer Name: humana [place]: No Confirmation of Primary Care Physician: Confirmed PCP Name: jared evans Seen in last 2 years?: Yes Primary Caregiver: Self If assistance needed, confirmed caregiver ready, willing and able to care for patient at discharge: Confirmed with: pt indep Living Arrangements Current Residence: (mobile home) Number of Floors 3 Number of Entry Steps: 1 Bed/Bath Levels: Both first floor Facility: Facility Name: Plan to Return: Lives with: Alone Support Systems: Children, Family members, Friends/neighbors Activities of Daily Living Ambulation: Independent (uses cane and walker) Bathing/Dressing: Independent Elimination/Continence/Toileting: Independent Feeding: Independent Who Assists with Activities of Daily Living: Instrumental Activities of Daily Living Prescription Coverage: Yes [facility] Used[facility] Medication Management: Independent Transportation/Shopping: Assistance Provider Transportation/Shopping Assistance Provider Name: natividad Transportation Mode: Car Needs Assistance with Transportation at Discharge: No Meal Preparation: Independent Laundry/Cleaning: Independent Finances/Bill Paying: Independent Communication: Independent Types of Care Services/Equipment Utilized Care Services: Skilled Home Health Services Care Services Provider Name: [facility] Dialysis Type: NA Durable Medical Equipment: Cane, Walker Patient's Goal/Discharge Plan Patient expects to be discharged to: home with HC Discharge Planning Actions: Continue to follow Patient's Choice Rights and [employer] and Collaborative Relationships Disclosed as Indicated for Post-Acute Care: NA Interdisciplinary Team Engagement: Home Health Care Social Work Referral for: Additional Information: Pt adm for tx/evaluation of right leg pain/peripheral artery disease/right leg weakness/aFib. Vascular evaluated- no surgical plans, recommend hemoc consult and continue heparin gtt. Consult to hemoc placed. Met with pt- introduced self and role. Pt from home alone and indep. Pt active with [facility]- liaison following for continued services. Pt uses walker/cane at baseline. Pt has insurance, PCP and able to obtain meds. Pt's friends help with transportation. No needs antic at discharge. Virginia Rehman RN [facility] 04-04-2024 Note Formatting of this n ote might be different from the original. Care Managment Initial Assessment Date: 04/04/2024 Patient Name: Mel Pop : 1940 Patient Information Source of Information: Patient Cognition/Language: WFL - Within Functional Limits Permission given to speak with patient artist's representative/caregiver as indicated: Confirmation of Payer with patient/family: Yes Payer Name: [employer] : No Confirmation of Primary Care Physician: Confirmed PCP Name: jared evans Seen in last 2 years?: Yes Primary Caregiver: Self If assistance needed, confirmed caregiver ready, willing and able to care for patient at discharge: Confirmed with: pt indep Living Arrangements Current Residence: (mobile home) Number of Floors 3 Number of Entry Steps: 1 Bed/Bath Levels: Both first floor Facility: Facility Name: Plan to Return: Lives with: Alone Support Systems: Children, Family members, Friends/neighbors Activities of Daily Living Ambulation: Independent (uses cane and walker) Bathing/Dressing: Independent Elimination/Continence/Toileting: Independent Feeding: Independent Who Assists with Activities of Daily Living: Instrumental Activities of Daily Living Prescription Coverage: Yes Pharmacy Used: [facility] Medication Management: Independent Transportation/Shopping: Assistance Provider Transportation/Shopping Assistance Provider Name: natividad Transportation Mode: Car Needs Assistance with Transportation at Discharge: No Meal Preparation: Independent Laundry/Cleaning: Independent Finances/Bill Paying: Independent Communication: Independent Types of Care Services/Equipment Utilized Care Services: Skilled Home Health Services Care Services Provider Name: [facility] Dialysis Type: NA Durable Medical Equipment: Cane, Walker Patient's Goal/Discharge Plan Patient expects to be discharged to: home with HC Discharge Planning Actions: Continue to follow Patient's Choice Rights and [employer] and Collaborative Relationships Disclosed as Indicated for Post-Acute Care: NA Interdisciplinary Team Engagement: Home Health Care Social Work Referral for: Additional Information: Pt adm for tx/evaluation of right leg pain/peripheral artery disease/right leg weakness/aFib. Vascular evaluated- no surgical plans, recommend hemoc consult and continue heparin gtt. Consult to hemoc placed. Met with pt- introduced self and role. Pt from home alone and indep. Pt active with [facility]- liaison following for continued services. Pt uses walker/cane at baseline. Pt has insurance, PCP and able to obtain meds. Pt's friends help with transportation. No needs antic at discharge. Virginia Rehman RN [facility] 04-04-2024 Note Formatting of this n ote is different from the original. Start PACC Note Home Health Referral Educated patient on Home Care and services available. Patient offered choice of available HHC and agreeable to SN/PT services with [facility]. Care Types: None Isolation Precautions: No active isolations Social Determinates of Health: Tobacco Use: High Risk (04/04/2024) Patient History Smoking Tobacco Use: Every Day Smokeless Tobacco Use: Never Passive Exposure: Not on file Social History Substance and Sexual Activity Alcohol Use Yes Alcohol/week: 1.0 standard drink of alcohol Types: 1 Cans of beer per week Social History Substance and Sexual Activity Drug Use Never Does the patient have any financial resource strain? No Does the patient have any food insecurities? No Does the patient have any housing instabilities? No If any of the above is noted as yes - consider a LABOR TRAINING MANAGER evaluation once the patient returns home. START PATIENT REGISTRATION INFORMATION Order Information Order Signing Physician: Robert Vigil MD Service Ordered RN ?: Yes Service Ordered PT ?: Yes Service Ordered OT ?: No Service Ordered ST ?: No Service Ordered LABOR TRAINING MANAGER?:No Service Ordered DINING ROOM BUSSER?: No Following Physician: Jared Evans MD Following Physician Overseeing Physician: Jared Evans MD (Required for Residents only) Agreeable to Follow? Yes Date/Time of Call 04/04/24 11:36 AM, Spoke with: Patient is a DEB. Care Coordination Same Day SOC?: No Primary Care Physician: Jared Evans MD Primary Care Physician Primary Care Physician Address: [address] [place] [id number] Visit Instructions: N/A Service Discharge Location Type: Home with Home Care Service Facility Name: N/A Service Floor Facility: N/A Service Room No: N/A Demographics Patient Last Name: Jose Alberto Patient First Name: Mel Language/Communication Barrier: none Service Address: [address] Service City: [place] Service ST: [place] Service ZIP: [address] Service Other phone numbers: Telephone Information: Emergency Contact: Extended Emergency Contact Information Primary Emergency Contact: Damaris Villafana Mobile Relation: Friend Secondary Emergency Contact: José Miguel Castillo/ Fidel Mobile Relation: Child Admission Information Admit Date: 04/03/2024 Patient status at discharge: Inpatient Admitting Diagnosis: Right leg pain [M79.604] Peripheral arterial disease (HCC) [I73.9] Right leg weakness [R29.898] Atrial fibrillation, unspecified type (HCC) [I48.91] Caregiver Information Caregiver First Name: na Caregiver Last Name: na Caregiver Relationship to Patient na Caregiver Phone Number: na Caregiver Notes: N/A [employer] List No END PATIENT REGISTRATION INFORMATION Pt Home Health goal Return home and prevent readmission. COVID Status 1. Do you have any upper respiratory symptoms (cough, SOB, Fever)? No 2. Have you been exposed to anyone with COVID-19 Virus? No Answer only if pending or positive for COVID-19? 1. Agreeable to wear PPE at each visit? No 2. Is the hospital supplying them with PPE upon Discharge? No Start PACC Summary General Report/ Additional Comments 83 y.o. female with past medical history below who presents with chief complaint listed above. Patient states she developed right leg numbness and tingling pain which caused her some difficulty with ambulation earlier today. She was first evaluated at an outside facility where she underwent CTA of the LE, showing severe lower extremity atherosclerotic disease with bilateral superficial femoral artery occlusion. Discussion there with vascular surgery recommended transfer in case she requires acute vascular surgical intervention. Discharge Date: pending Referral Source-PACC: (Hospital/Unit): [facility] / [id number] B End PACC Note [facility] 04-04-2024 Note Formatting of this n ote is different from the original. Start PACC Note Home Health Referral Educated patient on Home Care and services available. Patient offered choice of available HHC and agreeable to SN/PT services with [facility]. Care Types: None Isolation Precautions: No active isolations Social Determinates of Health: Tobacco Use: High Risk (04/04/2024) Patient History Smoking Tobacco Use: Every Day Smokeless Tobacco Use: Never Passive Exposure: Not on file Social History Substance and Sexual Activity Alcohol Use Yes Alcohol/week: 1.0 standard drink of alcohol Types: 1 Cans of beer per week Social History Substance and Sexual Activity Drug Use Never Does the patient have any financial resource strain? No Does the patient have any food insecurities? No Does the patient have any housing instabilities? No If any of the above is noted as yes - consider a LABOR TRAINING MANAGER evaluation once the patient returns home. START PATIENT REGISTRATION INFORMATION Order Information Order Signing Physician: Robert Vigil MD Service Ordered RN ?: Yes Service Ordered PT ?: Yes Service Ordered OT ?: No Service Ordered ST ?: No Service Ordered LABOR TRAINING MANAGER?:No Service Ordered DINING ROOM BUSSER?: No Following Physician: Jared Evans MD Following Physician Overseeing Physician: Jared Evans MD (Required for Residents only) Agreeable to Follow? Yes Date/Time of Call 04/04/24 11:36 AM, Spoke with: Patient is a DEB. Care Coordination Same Day SOC?: No Primary Care Physician: Jared Evans MD Primary Care Physician Primary Care Physician Address: [address] [place] [address] Visit Instructions: N/A Service Discharge Location Type: Home with Home Care Service Facility Name: N/A Service Floor Facility: N/A Service Room No: N/A Demographics Patient Last Name: Jose Alberto Patient First Name: Mel Language/Communication Barrier: none Service Address: [address] [place] [address] [address] Service City: [place] Service ST: [place] Service ZIP: [address] Service Other phone numbers: Telephone Information: Emergency Contact: Extended Emergency Contact Information Primary Emergency Contact: Damaris Villafana Mobile Relation: Friend Secondary Emergency Contact: José Miguel Castillo/ Fidel Mobile Relation: Child Admission Information Admit Date: 04/03/2024 Patient status at discharge: Inpatient Admitting Diagnosis: Right leg pain [M79.604] Peripheral arterial disease (HCC) [I73.9] Right leg weakness [R29.898] Atrial fibrillation, unspecified type (HCC) [I48.91] Caregiver Information Caregiver First Name: na Caregiver Last Name: na Caregiver Relationship to Patient na Caregiver Phone Number: na Caregiver Notes: N/A Sviral List No END PATIENT REGISTRATION INFORMATION Pt Home Health goal Return home and prevent readmission. COVID Status 1. Do you have any upper respiratory symptoms (cough, SOB, Fever)? No 2. Have you been exposed to anyone with COVID-19 Virus? No Answer only if pending or positive for COVID-19? 1. Agreeable to wear PPE at each visit? No 2. Is the hospital supplying them with PPE upon Discharge? No Start PACC Summary General Report/ Additional Comments 83 y.o. female with past medical history below who presents with chief complaint listed above. Patient states she developed right leg numbness and tingling pain which caused her some difficulty with ambulation earlier today. She was first evaluated at an outside facility where she underwent CTA of the LE, showing severe lower extremity atherosclerotic disease with bilateral superficial femoral artery occlusion. Discussion there with vascular surgery recommended transfer in case she requires acute vascular surgical intervention. Discharge Date: pending Referral Source-PACC: (Hospital/Unit): [facility] / [id number] B End PACC Note [facility] 04-04-2024 Plan of care note The patient is Moderately Stable - Low risk of patient condition declining or worsening The patient's goals for the shift include safety The clinical goals for the shift include therapeutic aptt [facility] 04-04-2024 Note Formatting of this n ote might be different from the original. Patient is currently active with [facility]. The patients current certification period will on 05/18/24. The patient is currently receiving PT services through the agency. Animal Keeper Head to continue to follow. [facility] 04-04-2024 Note Formatting of this n ote might be different from the original. Patient is currently active with [facility]. The patients current certification period will on 05/18/24. The patient is currently receiving PT services through the agency. Animal Keeper Head to continue to follow. [facility] 04-04-2024 Consult note Associated Order (s): IP CONSULT TO VASCULAR SURGERY Vascular Surgery Consultation Note Reason for Consult: acute on chronic RLE pain HISTORY OF PRESENT ILLNESS: The patient is a 83 y.o. 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 Vascular surgery is consulted for evaluation and treatment. Patient reports acute on chronic pain mostly in the right lower extremity. At baseline she does have short distance claudication mostly in the right extremity. She denies wounds to the bilateral lower extremity. Her pain began acutely in the proximal right thigh and is only improved with elevation. she reports compliance with her home Eliquis. Patient is a current smoker, greater than 60-year smoking Hx. On review of chart patient afebrile, hemodynamically stable on room air. Labs with WBC 8.1, hemoglobin 12.5, platelets 266, BUN 30, creatinine 1.45. Troponin negative. Patient is now heparinized most recent PTT supratherapeutic 132. She has prelim results of her ultrasounds from today -bilateral lower extremity venous duplex shows large acute occlusive clot from the external iliac distally on the right side, her arterial PVRs show MICHELLE of 0.55 on the right and 0.62 on the left, full waveforms are not available for review. She had a CTA performed yesterday at outside hospital which shows severe diffuse atherosclerotic disease most notably mid/distal SFA occlusion on the right and proximal SFA occlusion on the left with distal collateral flow. On CT imaging patient has evidence of IVC filter in place, no procedural records in the chart. IMPRESSION: 83-year-old female with acute right lower extremity pain. At this time it would seem that her new proximal right femoral DVT is the cause of this, as opposed to her diffuse atherosclerotic disease RECOMMENDATIONS: No acute vascular surgery intervention Patient not a good candidate for surgical thrombectomy or thrombolysis due to age, baseline functional status, and burden of medical comorbidities Continue heparin drip and right lower extremity elevation Recommend hematology consult, would consider this failure of Eliquis therapy if the patient is truly compliant, will need to consider other agent Patient needs smoking cessation Discussed with Dr. 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 HYSTERECTOMY ORTHOPEDIC SURGERY Current Medications: heparin, 5-30 Units/kg/hr, Last Rate: 18 Units/kg/hr (04/04/24 0409) sodium chloride, 125 mL/hr, Last Rate: 125 mL/hr (04/03/24 191) PRN medications: acetaminophen OR acetaminophen, albuterol, heparin, heparin, ondansetron ODT OR ondansetron, polyethylene glycol (PEG) 3350 [START ON 04/05/2024] influenza, 0.5 mL, IntraMUSCular, Once lisinopril, 5 mg, Oral, Daily mometasone-formoterol, 2 puff, Inhalation, BID pantoprazole, 40 mg, Oral, qAM AC sodium zirconium cyclosilicate, 10 g, Oral, Once tiotropium, 2 puff, Inhalation, Daily Allergies: Advair hfa [fluticasone-salmeterol], Amoxicillin, and Percocet [oxycodone-acetaminophen] Social History Socioeconomic History Marital status: Spouse name: Not on file Number of children: Not on file Years of education: Not on file Highest education level: Not on file Occupational History Not on file Tobacco Use Smoking status: Every Day Current packs/day: 0.50 Types: Cigarettes Smokeless tobacco: Never Substance and Sexual Activity Alcohol use: Yes Alcohol/week: 1.0 standard drink of alcohol Types: 1 Cans of beer per week Drug use: Never Sexual activity: Not on file Other Topics Concern Not on file Social History Narrative Not on file Social Determinants of Health Financial Resource Strain: Low Risk (04/04/2024) Overall Financial Resource Strain (CARDIA) Difficulty of Paying Living Expenses: Not very hard Food Insecurity: No Food Insecurity (04/04/2024) Hunger Vital Sign Worried About Running Out of Food in the Last Year: Never true Ran Out of Food in the Last Year: Never true Transportation Needs: No Transportation Needs (04/04/2024) PRAPARE - Transportation Lack of Transportation (Medical): No Lack of Transportation (Non-Medical): No Physical Activity: Inactive (04/04/2024) Exercise Vital Sign Days of Exercise per Week: 0 days Minutes of Exercise per Session: 0 min Stress: No Stress Concern Present (04/04/2024) [employer] - Occupational Stress Questionnaire Feeling of Stress : Not at all Social Connections: Moderately Isolated (04/04/2024) Social Connection and Isolation Panel [NHANES] Frequency of Communication with Friends and Family: More than three times a week Frequency of Social Gatherings with Friends and Family: More than three times a week Attends [employer] Services: 1 to 4 times per year Active Member of Clubs or Organizations: No Attends Club or Organization Meetings: Never Marital Status: Intimate Partner Violence: Not At Risk (04/04/2024) Humiliation, Afraid, Rape, and Kick questionnaire Fear of Current or Ex-Partner: No Emotionally Abused: No Physically Abused: No Sexually Abused: No Housing Stability: Low Risk (04/04/2024) Housing Stability Vital Sign Unable to Pay for Housing in the Last Year: No Number of Times Moved in the Last Year: 0 Homeless in the Last Year: No No family history on file. REVIEW OF SYSTEMS: The chart was reviewed. Review of Systems 11 point review systems obtained, negative unless listed in HPI LABS: Lab Results Component Value Date CREATININE 1.54 (H) 04/03/2024 Lab Results Component Value Date WBC 9.3 04/03/2024 HGB 12.7 04/03/2024 HCT 38.6 04/03/2024 MCV 92.3 04/03/2024 PLT 283 04/03/2024 Lab Results Component Value Date INR 1.0 04/03/2024 PROTIME 11.7 04/03/2024 No results found for: "VLDL" PHYSICAL EXAM: Vitals: 04/04/24 0404 BP: 145/80 Pulse: 74 Resp: 16 Temp: 36.4 C (97.6 F) SpO2: 98% Physical Exam Constitutional: General: She is not in acute distress. Appearance: Normal appearance. HENT: Head: Normocephalic and atraumatic. Right Ear: External ear normal. Left Ear: External ear normal. Nose: No congestion. Mouth/Throat: Mouth: Mucous membranes are moist. Pharynx: No oropharyngeal exudate. Eyes: Pupils: Pupils are equal, round, and reactive to light. Cardiovascular: Rate and Rhythm: Normal rate and regular rhythm. Heart sounds: No murmur heard. Pulmonary: Effort: Pulmonary effort is normal. No respiratory distress. Abdominal: General: Abdomen is flat. There is no distension. Tenderness: There is no abdominal tenderness. Musculoskeletal: General: Swelling and tenderness present. Normal range of motion. Cervical back: Normal range of motion. Right lower leg: Edema present. Left lower leg: No edema. Skin: General: Skin is warm. Capillary Refill: Capillary refill takes 2 to 3 seconds. Coloration: Skin is not jaundiced. Neurological: General: No focal deficit present. Mental Status: She is alert and oriented to person, place, and time. Psychiatric: Mood and Affect: Mood normal. Behavior: Behavior normal. Vascular exam: Right lower extremity mildly swollen and tender, unable to evaluate skin due to patient wearing pants. She has chronic telangiectasias to the bilateral feet. She has very weak PT and DP Doppler signals bilaterally LABS: Lab Results Component Value Date WBC 9.3 04/03/2024 HGB 12.7 04/03/2024 HCT 38.6 04/03/2024 PLT 283 04/03/2024 PROTIME 11.7 04/03/2024 INR 1.0 04/03/2024 K 5.7 (H) 04/03/2024 BUN 29 (H) 04/03/2024 CREATININE 1.54 (H) 04/03/2024 VASCULAR TESTING: [facility] 1940 [id number] Exam Date/Time: 04/03/2024 21:14 Procedure: CTA AORTA BL ILIOFEMORAL W WO Ordering Provider: CUTLER DANIEL Reason For Exam: Claudication or leg ischemia CTA AORTA BL ILIOFEMORAL W WO CLINICAL INDICATION: Claudication or leg ischemia TECHNIQUE: CTA abdominal aorta with bilateral lower extremity runoff. IV contrast utilized. Multiplanar reformations. 3-D reconstructions provided to better evaluate the vascular and/or osseous structures. Dose reduction was employed with automated exposure control. COMPARISON: None FINDINGS: Lung bases are clear. Mild cardiac enlargement. Solid organ evaluation limited from arterial phase bolus. Liver shows no significant abnormality. Gallbladder and biliary tree appear normal. Spleen shows no significant abnormality. Adrenal glands show no significant abnormality. Kidneys show no significant abnormality. Pancreas shows no significant abnormality. IVC filter noted. Severe diverticulosis involving the sigmoid colon. No diverticulitis seen. No bowel obstruction. Abdominal aorta shows atherosclerotic changes but no aneurysm or dissection. No significant narrowing of celiac artery origin. No significant narrowing of the SMA origin. Moderate to severe stenosis involving the right renal artery origin. Less than 50 percent stenosis left renal artery origin. YOVANI is patent. Right side: Common iliac artery shows moderate atherosclerotic changes but no high-grade stenosis. 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 Moderate stenosis of right internal iliac artery origin. External iliac artery on the right appears widely patent. Common femoral and deep femoral arteries are patent. Proximal superficial femoral artery is patent. In the mid superficial femoral artery there is multifocal stenosis, and subsequent occlusion at the level of the mid femur. Reconstitution of the proximal popliteal artery which shows multifocal stenosis. Anterior tibial artery is patent proximally, but shows no contrast enhancement past the upper to mid lower leg. Tibioperoneal trunk is patent proximally. Peroneal and posterior tibial arteries are patent proximally but show severe atherosclerotic changes and multifocal stenoses. Multi focal occlusion of posterior tibial artery which does not appear to cross the ankle. Peroneal artery also shows severe atherosclerotic disease, and is not seen past just above the ankle. Left side: Common iliac external, and internal iliac arteries appear patent. Common femoral artery is patent. Deep femoral artery is patent. Superficial femoral artery is very small proximally and is occluded just distal to its origin. There is reconstitution of the popliteal artery. Anterior tibial artery is seen proximally, no contrast opacification passed the upper to mid lower leg. Tibial peroneal trunk is patent. Posterior tibial and peritoneal arteries are patent proximally, but appear badly diseased. Peroneal artery crosses through the interosseous membrane and appears to anastomose to the distal anterior tibial artery. Posterior tibial artery does not cross the ankle, but is seen into the mid to distal lower leg. IMPRESSION: 1. Severe lower extremity atherosclerotic disease. 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 2. 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 3. Severe diverticulosis. Report Dictated on Electronically Signed By: Toño Tang MD Electronically Signed Date/Time: 04/03/2024 9:36 PM EDT . Associated attestation - Kristyn Blankenship MD - 04/04/2024 4:47 PM EDT I saw and evaluated the patient. I agree with the findings and plan of care as documented in the resident s note unless otherwise noted below. Patient with extensive smoking history and claudication symptoms. Abs show right MICHELLE 0.55. and left MICHELLE 0.62. 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 On exam there is right lower extremity swelling. No evidence of phlegmasia. Heparin gtt initiated at [facility] prior to transfer and continued here. She notes missed doses of her Eliquis. Recommend compression and elevation of the right lower extremity. Can consider mechanical thrombectomy however given patient's age, this may be more risk than of benefit. Will continue to monitor for symptom improvement on anticoagulation alone. [facility] Phone: 04-04-2024 Note Formatting of this n ote is different from the original. [employer] Mel Pop : 1940 Primary Care Physician: Jared Evans MD The patient and/or family/surrogate voluntarily agreed to participate in ACP services. Patient s cognitive capacity: intact Code Status: [ ] [FULL CODE - Continue all advanced life support: CPR,intubation,invasive procedures] [X] [DNR-CCA - DO NOT do CPR, intubation] [_] [DNR-STEAMER TENDER - Comfort care only] [_] DNR form [was/was not] signed Summary of discussion: [Condition that instigated the ACP on this DOS, relevant PMH, functional status, goals of care, and whom this was discussed with including names and relationship to the patient, and any relevant advance care documentation discussion] I answered all the patient/family questions that I could within the range and scope of the current medical situation. We discussed the medical conditions, risks, benefits, outcomes, and goals of care at this time for the patient's medical issues at hand in the face of the patient's chronic issues and current presentation. Total time spent: 10 minutes were spent discussing the patient's resuscitation status, advance care planning, and end of life care, with patient and/or family/surrogate. Pratibha Avelar DO [facility] 04/04/2024, 5:40 AM [facility] 04-04-2024 Note Formatting of this n ote is different from the original. [employer] Mel Pop : 1940 Primary Care Physician: Jared Evans MD The patient and/or family/surrogate voluntarily agreed to participate in ACP services. Patient s cognitive capacity: intact Code Status: [ ] [FULL CODE - Continue all advanced life support: CPR,intubation,invasive procedures] [X] [DNR-CCA - DO NOT do CPR, intubation] [_] [DNR-STEAMER TENDER - Comfort care only] [_] DNR form [was/was not] signed Summary of discussion: [Condition that instigated the ACP on this DOS, relevant PMH, functional status, goals of care, and whom this was discussed with including names and relationship to the patient, and any relevant advance care documentation discussion] I answered all the patient/family questions that I could within the range and scope of the current medical situation. We discussed the medical conditions, risks, benefits, outcomes, and goals of care at this time for the patient's medical issues at hand in the face of the patient's chronic issues and current presentation. Total time spent: 10 minutes were spent discussing the patient's resuscitation status, advance care planning, and end of life care, with patient and/or family/surrogate. Pratibha Avelar DO [facility] 04/04/2024, 5:40 AM T [facility] 04-04-2024 History and physical note Attending History and Physical Admit Date: 04/03/2024 PCP: Jared Evans MD CHIEF COMPLAINT: right leg pain Reason for Admission: Right leg pain due to PAD History Obtained From: patient HISTORY OF PRESENT ILLNESS: Mel is a 83 y.o. female with past medical history below who presents with chief complaint listed above. Patient states she developed right leg numbness and tingling pain which caused her some difficulty with ambulation earlier today. She was first evaluated at an outside facility where she underwent CTA of the LE, showing severe lower extremity atherosclerotic disease with bilateral superficial femoral artery occlusion. Discussion there with vascular surgery recommended transfer in case she requires acute vascular surgical intervention. Will admit for further evaluation and management. Past Medical History: Past Medical History: Diagnosis Date Asthma Essential hypertension 03/07/2020 GERD (gastroesophageal reflux disease) Hiatal hernia Pure hypercholesterolemia 03/07/2020 Past Surgical History: Past Surgical History: Procedure Laterality Date FINGER AMPUTATION Right 03/07/2020 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 HYSTERECTOMY ORTHOPEDIC SURGERY Social History: Social History Socioeconomic History Marital status: Spouse name: Not on file Number of children: Not on file Years of education: Not on file Highest education level: Not on file Occupational History Not on file Tobacco Use Smoking status: Every Day Current packs/day: 0.50 Types: Cigarettes Smokeless tobacco: Never Substance and Sexual Activity Alcohol use: Yes Alcohol/week: 1.0 standard drink of alcohol Types: 1 Cans of beer per week Drug use: Never Sexual activity: Not on file Other Topics Concern Not on file Social History Narrative Not on file Social Determinants of Health Financial Resource Strain: Low Risk (04/04/2024) Overall Financial Resource Strain (CARDIA) Difficulty of Paying Living Expenses: Not very hard Food Insecurity: No Food Insecurity (04/04/2024) Hunger Vital Sign Worried About Running Out of Food in the Last Year: Never true Ran Out of Food in the Last Year: Never true Transportation Needs: No Transportation Needs (04/04/2024) PRAPARE - Transportation Lack of Transportation (Medical): No Lack of Transportation (Non-Medical): No Physical Activity: Inactive (04/04/2024) Exercise Vital Sign Days of Exercise per Week: 0 days Minutes of Exercise per Session: 0 min Stress: No Stress Concern Present (04/04/2024) [employer] - Occupational Stress Questionnaire Feeling of Stress : Not at all Social Connections: Moderately Isolated (04/04/2024) Social Connection and Isolation Panel [NHANES] Frequency of Communication with Friends and Family: More than three times a week Frequency of Social Gatherings with Friends and Family: More than three times a week Attends [employer] Services: 1 to 4 times per year Active Member of Clubs or Organizations: No Attends Club or Organization Meetings: Never Marital Status: Intimate Partner Violence: Not At Risk (04/04/2024) Humiliation, Afraid, Rape, and Kick questionnaire Fear of Current or Ex-Partner: No Emotionally Abused: No Physically Abused: No Sexually Abused: No Housing Stability: Low Risk (04/04/2024) Housing Stability Vital Sign Unable to Pay for Housing in the Last Year: No Number of Times Moved in the Last Year: 0 Homeless in the Last Year: No Family History: No family history on file. Medications Prior to Admission: No current facility-administered medications on file prior to encounter. Current Outpatient Medications on File Prior to Encounter Medication Sig Dispense Refill albuterol 108 (90 Base) MCG/ACT inhaler inhale 1 puff by mouth and INTO THE LUNGS every 6 hours if needed for shortness of breath ascorbic acid (Vitamin C) 500 MG tablet Take 500 mg by mouth in the morning and 500 mg at noon and 500 mg in the evening. Eliquis 5 MG tablet Take 5 mg by mouth 2 times daily. lisinopril 5 MG tablet Take 5 mg by mouth in the morning. pantoprazole (ProtoNix) 40 MG EC tablet Trelegy Ellipta 100-62.5-25 MCG/ACT aerosol powder Allergies: Allergies Allergen Reactions Advair Hfa [Fluticasone-Salmeterol] Arm numbness Amoxicillin Vomiting and diarrhea Percocet [Oxycodone-Acetaminophen] Itching REVIEW OF SYSTEMS: Constitutional: Negative for fever, chills, activity change and unexpected weight change. HEENT: Negative for congestion, postnasal drip and sneezing. Eyes: Negative for itching and visual disturbance. Respiratory: Negative for apnea, cough, choking, chest tightness, shortness of breath, wheezing and stridor. Cardiovascular: Negative for chest pain. Gastrointestinal: Negative for nausea, vomiting, abdominal pain, diarrhea and blood in stool. Genitourinary: Negative for dysuria, frequency and flank pain. Musculoskeletal: Negative for myalgias and joint swelling. Skin: Negative for rash. Neurological: Negative for dizziness, tremors, seizures, syncope, facial asymmetry, speech difficulty, weakness, numbness and headaches. Hematological: Negative for adenopathy. Psychiatric/Behavioral: Negative for suicidal ideas, behavioral problems, self-injury and dysphoric mood. Vitals: BP 145/80 (BP Location: Right arm) Pulse 74 Temp 36.4 C (97.6 F) (Temporal) Resp 16 Ht 5' 4" (1.626 m) Wt 159 lb 8 oz (72.3 kg) SpO2 98% BMI 27.38 kg/m BMI Classification: Overweight (BMI 25.0-29.9) Pulse Ox: SpO2 Av.9 % Min: 96 % Max: 100 % Supplemental O2: PHYSICAL EXAM: Physical Exam Vitals reviewed. Constitutional: General: She is not in acute distress. Appearance: Normal appearance. She is not ill-appearing. HENT: Head: Normocephalic and atraumatic. Right Ear: External ear normal. Left Ear: External ear normal. Nose: Nose normal. Mouth/Throat: Mouth: Mucous membranes are moist. Pharynx: Oropharynx is clear. Eyes: General: Right eye: No discharge. Left eye: No discharge. Pupils: Pupils are equal, round, and reactive to light. Cardiovascular: Rate and Rhythm: Normal rate. Pulses: Normal pulses. Pulmonary: Effort: Pulmonary effort is normal. No respiratory distress. Abdominal: General: Bowel sounds are normal. Palpations: Abdomen is soft. Musculoskeletal: General: No deformity. Normal range of motion. Cervical back: Normal range of motion and neck supple. No rigidity. Skin: General: Skin is warm and dry. Neurological: General: No focal deficit present. Mental Status: She is alert. Psychiatric: Mood and Affect: Mood normal. Behavior: Behavior normal. DATA: CBC: Recent Labs 04/03/241917 WBC 9.3 RBC 4.18 HGB 12.7 HCT 38.6 MCV 92.3 RDW 14.4 PLT 283 BMP: Recent Labs 04/03/241917 NA 135 K 5.7* CL 107 CO2 20* BUN 29* CREATININE 1.54* GLUCOSE 115* CALCIUM 9.3 ANIONGAP 9 LIVER PROFILE: Recent Labs 04/03/241917 AST 19 ALT 10 BILITOT 1.1 ALKPHOS 91 PROT 7.7 PT/INR: Recent Labs 04/03/241917 PROTIME 11.7 INR 1.0 CARDIAC ENZYMES: Recent Labs 04/03/241917 TROPONINI 0.014 Procalcitonin: No results found for: "PROCAL" Urine Culture: No results found for this or any previous visit. COVID-19 PCR: No results for input(s): "COVID19" in the last 72 hours. I reviewed: [x] laboratory results [x] radiographic results At the time of today's encounter. Pt was advised of the results. Data: (CAT3) Discussed with ED provider, Bernie Cutler APRN, regarding patient's eval & mgmt thus far, and agree with the plan for hospitalization. (LOW: 2x CAT1 or independent historian MOD: 3x CAT1 or 1x CAT3 EXTENSIVE: 3x CAT1 and 1x CAT3) Assessment Discussed management with the ED provider and agree with hospitalization. Acute, acute on chronic, unstable/uncontrolled chronic problems/diagnoses: Right leg pain due to PAD Hyperkalemia LORENZA vs CKD Stable chronic problems affecting care, new non-acute diagnoses: A fib Plan As a result of the above findings & factors, the following mgmt was pursued: PAD Right leg pain - CTA showed: Severe lower extremity atherosclerotic disease. 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 - vascular surg discussed pt prior to transfer to this facility, rec transfer in case need for acute surgical intervention - on heparin gtt (holding Eliquis) - consult vasc surg - also has swelling with pain on palpation of right calf (and to a lesser extent right thigh); will rule out DVT though less likely given her Eliquis compliance reported. Hyperkalemia LORENZA vs CKD - will repeat BMP - lokelma x 1 dose - hyperkalemia in setting of LORENZA vs CKD (last known baseline Cr normal in 2021) - will trend Cr as well after IVF given in ED A fib - on heparin gtt (holding Eliquis as above) - am labs, replace lytes prn - PT/OT/CM/SW - delirium precautions: increase activity - DVT prophylaxis: heparin and encourage ambulation Complexity: Acute illness or injury posing a threat to life or body function (HIGH). Risk: Admission to hospital-level care was considered or occurred (HIGH). Advance Directive: No Order Anticipated Discharge - Date - 04/06/24 - Location - Home - Pending the following - vascular surg consultation Total time spent (which include face to face and non face to face encounters) : 78 minutes. Extended Emergency Contact Information Primary Emergency Contact: Damaris Villafana Mobile Relation: Friend Secondary Emergency Contact: José Miguel Castillo/ Fidel Mobile Relation: Child Pratibha Avelar DO Division of Hospitalist Medicine [place] [place] [employer] Work Phone: 04-04-2024 Note [employer] [facility] 04-04-2024 History and physical note Attending History and Physical Admit Date: 04/03/2024 PCP: Jared Evans MD CHIEF COMPLAINT: right leg pain Reason for Admission: Right leg pain due to PAD History Obtained From: patient HISTORY OF PRESENT ILLNESS: Mel is a 83 y.o. female with past medical history below who presents with chief complaint listed above. Patient states she developed right leg numbness and tingling pain which caused her some difficulty with ambulation earlier today. She was first evaluated at an outside facility where she underwent CTA of the LE, showing severe lower extremity atherosclerotic disease with bilateral superficial femoral artery occlusion. Discussion there with vascular surgery recommended transfer in case she requires acute vascular surgical intervention. Will admit for further evaluation and management. Past Medical History: Past Medical History: Diagnosis Date Asthma Essential hypertension 03/07/2020 GERD (gastroesophageal reflux disease) Hiatal hernia Pure hypercholesterolemia 03/07/2020 Past Surgical History: Past Surgical History: Procedure Laterality Date FINGER AMPUTATION Right 03/07/2020 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 HYSTERECTOMY ORTHOPEDIC SURGERY Social History: Social History Socioeconomic History Marital status: Spouse name: Not on file Number of children: Not on file Years of education: Not on file Highest education level: Not on file Occupational History Not on file Tobacco Use Smoking status: Every Day Current packs/day: 0.50 Types: Cigarettes Smokeless tobacco: Never Substance and Sexual Activity Alcohol use: Yes Alcohol/week: 1.0 standard drink of alcohol Types: 1 Cans of beer per week Drug use: Never Sexual activity: Not on file Other Topics Concern Not on file Social History Narrative Not on file Social Determinants of Health Financial Resource Strain: Low Risk (04/04/2024) Overall Financial Resource Strain (CARDIA) Difficulty of Paying Living Expenses: Not very hard Food Insecurity: No Food Insecurity (04/04/2024) Hunger Vital Sign Worried About Running Out of Food in the Last Year: Never true Ran Out of Food in the Last Year: Never true Transportation Needs: No Transportation Needs (04/04/2024) PRAPARE - Transportation Lack of Transportation (Medical): No Lack of Transportation (Non-Medical): No Physical Activity: Inactive (04/04/2024) Exercise Vital Sign Days of Exercise per Week: 0 days Minutes of Exercise per Session: 0 min Stress: No Stress Concern Present (04/04/2024) [employer] - Occupational Stress Questionnaire Feeling of Stress : Not at all Social Connections: Moderately Isolated (04/04/2024) Social Connection and Isolation Panel [NHANES] Frequency of Communication with Friends and Family: More than three times a week Frequency of Social Gatherings with Friends and Family: More than three times a week Attends [employer] Services: 1 to 4 times per year Active Member of Clubs or Organizations: No Attends Club or Organization Meetings: Never Marital Status: Intimate Partner Violence: Not At Risk (04/04/2024) Humiliation, Afraid, Rape, and Kick questionnaire Fear of Current or Ex-Partner: No Emotionally Abused: No Physically Abused: No Sexually Abused: No Housing Stability: Low Risk (04/04/2024) Housing Stability Vital Sign Unable to Pay for Housing in the Last Year: No Number of Times Moved in the Last Year: 0 Homeless in the Last Year: No Family History: No family history on file. Medications Prior to Admission: No current facility-administered medications on file prior to encounter. Current Outpatient Medications on File Prior to Encounter Medication Sig Dispense Refill albuterol 108 (90 Base) MCG/ACT inhaler inhale 1 puff by mouth and INTO THE LUNGS every 6 hours if needed for shortness of breath ascorbic acid (Vitamin C) 500 MG tablet Take 500 mg by mouth in the morning and 500 mg at noon and 500 mg in the evening. Eliquis 5 MG tablet Take 5 mg by mouth 2 times daily. lisinopril 5 MG tablet Take 5 mg by mouth in the morning. pantoprazole (ProtoNix) 40 MG EC tablet Trelegy Ellipta 100-62.5-25 MCG/ACT aerosol powder Allergies: Allergies Allergen Reactions Advair Hfa [Fluticasone-Salmeterol] Arm numbness Amoxicillin Vomiting and diarrhea Percocet [Oxycodone-Acetaminophen] Itching REVIEW OF SYSTEMS: Constitutional: Negative for fever, chills, activity change and unexpected weight change. HEENT: Negative for congestion, postnasal drip and sneezing. Eyes: Negative for itching and visual disturbance. Respiratory: Negative for apnea, cough, choking, chest tightness, shortness of breath, wheezing and stridor. Cardiovascular: Negative for chest pain. Gastrointestinal: Negative for nausea, vomiting, abdominal pain, diarrhea and blood in stool. Genitourinary: Negative for dysuria, frequency and flank pain. Musculoskeletal: Negative for myalgias and joint swelling. Skin: Negative for rash. Neurological: Negative for dizziness, tremors, seizures, syncope, facial asymmetry, speech difficulty, weakness, numbness and headaches. Hematological: Negative for adenopathy. Psychiatric/Behavioral: Negative for suicidal ideas, behavioral problems, self-injury and dysphoric mood. Vitals: BP 145/80 (BP Location: Right arm) Pulse 74 Temp 36.4 C (97.6 F) (Temporal) Resp 16 Ht 5' 4" (1.626 m) Wt 159 lb 8 oz (72.3 kg) SpO2 98% BMI 27.38 kg/m BMI Classification: Overweight (BMI 25.0-29.9) Pulse Ox: SpO2 Av.9 % Min: 96 % Max: 100 % Supplemental O2: PHYSICAL EXAM: Physical Exam Vitals reviewed. Constitutional: General: She is not in acute distress. Appearance: Normal appearance. She is not ill-appearing. HENT: Head: Normocephalic and atraumatic. Right Ear: External ear normal. Left Ear: External ear normal. Nose: Nose normal. Mouth/Throat: Mouth: Mucous membranes are moist. Pharynx: Oropharynx is clear. Eyes: General: Right eye: No discharge. Left eye: No discharge. Pupils: Pupils are equal, round, and reactive to light. Cardiovascular: Rate and Rhythm: Normal rate. Pulses: Normal pulses. Pulmonary: Effort: Pulmonary effort is normal. No respiratory distress. Abdominal: General: Bowel sounds are normal. Palpations: Abdomen is soft. Musculoskeletal: General: No deformity. Normal range of motion. Cervical back: Normal range of motion and neck supple. No rigidity. Skin: General: Skin is warm and dry. Neurological: General: No focal deficit present. Mental Status: She is alert. Psychiatric: Mood and Affect: Mood normal. Behavior: Behavior normal. DATA: CBC: Recent Labs 04/03/241917 WBC 9.3 RBC 4.18 HGB 12.7 HCT 38.6 MCV 92.3 RDW 14.4 PLT 283 BMP: Recent Labs 04/03/241917 NA 135 K 5.7* CL 107 CO2 20* BUN 29* CREATININE 1.54* GLUCOSE 115* CALCIUM 9.3 ANIONGAP 9 LIVER PROFILE: Recent Labs 04/03/241917 AST 19 ALT 10 BILITOT 1.1 ALKPHOS 91 PROT 7.7 PT/INR: Recent Labs 04/03/241917 PROTIME 11.7 INR 1.0 CARDIAC ENZYMES: Recent Labs 04/03/241917 TROPONINI 0.014 Procalcitonin: No results found for: "PROCAL" Urine Culture: No results found for this or any previous visit. COVID-19 PCR: No results for input(s): "COVID19" in the last 72 hours. I reviewed: [x] laboratory results [x] radiographic results At the time of today's encounter. Pt was advised of the results. Data: (CAT3) Discussed with ED provider, Bernie Cutler APRN, regarding patient's eval & mgmt thus far, and agree with the plan for hospitalization. (LOW: 2x CAT1 or independent historian MOD: 3x CAT1 or 1x CAT3 EXTENSIVE: 3x CAT1 and 1x CAT3) Assessment Discussed management with the ED provider and agree with hospitalization. Acute, acute on chronic, unstable/uncontrolled chronic problems/diagnoses: Right leg pain due to PAD Hyperkalemia LORENZA vs CKD Stable chronic problems affecting care, new non-acute diagnoses: A fib Plan As a result of the above findings & factors, the following mgmt was pursued: PAD Right leg pain - CTA showed: Severe lower extremity atherosclerotic disease. 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 - vascular surg discussed pt prior to transfer to this facility, rec transfer in case need for acute surgical intervention - on heparin gtt (holding Eliquis) - consult vasc surg - also has swelling with pain on palpation of right calf (and to a lesser extent right thigh); will rule out DVT though less likely given her Eliquis compliance reported. Hyperkalemia LORENZA vs CKD - will repeat BMP - lokelma x 1 dose - hyperkalemia in setting of LORENZA vs CKD (last known baseline Cr normal in 2021) - will trend Cr as well after IVF given in ED A fib - on heparin gtt (holding Eliquis as above) - am labs, replace lytes prn - PT/OT/CM/SW - delirium precautions: increase activity - DVT prophylaxis: heparin and encourage ambulation Complexity: Acute illness or injury posing a threat to life or body function (HIGH). Risk: Admission to hospital-level care was considered or occurred (HIGH). Advance Directive: No Order Anticipated Discharge - Date - 04/06/24 - Location - Home - Pending the following - vascular surg consultation Total time spent (which include face to face and non face to face encounters) : 78 minutes. Extended Emergency Contact Information Primary Emergency Contact: Damaris Villafana Mobile Relation: Friend Secondary Emergency Contact: José Miguel Castillo/ Fidel Mobile Relation: Child Pratibha Avelar DO Division of Hospitalist Medicine [place] [place] in this encounter [facility] 04-04-2024 Plan of care note The patient is Moderately Stable - Low risk of patient condition declining or worsening The patient's goals for the shift include met The clinical goals for the shift include met Over the shift, the patient did not make progress toward the following goals. Barriers to progression include . Recommendations to address these barriers include . [facility] 04-04-2024 Emergency department Note Report to Delia Bond RN 04/04/24 034 [facility] 04-04-2024 Emergency department Note Report to Delia Bond RN 04/04/24 034 Multiple attempts made to call report to [facility] with phone number provided by skidder lever operator, but when phone number dialed RN only gets busy tone. Will try again. Shannon Bond RN 04/04/24 0331 [facility] at bedside to transport pt to [facility]. Paperwork with EMS Shannon Bond RN 04/04/24 0314 EMERGENCY DEPARTMENT ENCOUNTER Pt Name: Mel Pop Birthdate 1940 Date of evaluation: 04/03/2024 ED Provider: Bernie Cutler APRN - [facility] This patient was seen in conjunction with Dr. Cornell CHIEF COMPLAINT Chief Complaint Patient presents with Numbness Leg Swelling HISTORY OF PRESENT ILLNESS (Location/Symptom, Timing/Onset, Context/Setting, Quality, Duration, Modifying Factors, Severity) Note limiting factors. I wore appropriate PPE for the entirety of this encounter. HPI Mel Pop is a 83 y.o. who presents to the emergency department with chief complaint of right leg pain, tingling numbness and weakness of the right leg. Patient states that started after physical therapy today she been having problems with her hip and her right leg with intermittent pain and what she describes as charley horses, PCP set her up for some physical therapy today which she did today no issues she sat afterwards and watch movie and then she went to get up and her legs felt numb and she had trouble walking because of the weakness and numbness. She is on Eliquis. She denies any other neurologic sequelae. She has a greater than 60-year smoking history. Nursing Notes were reviewed. Limitations to history: None Outside historians: None REVIEW OF SYSTEMS Review of Systems Constitutional: Negative for activity change, appetite change, chills and fever. HENT: Negative for congestion, nosebleeds, sinus pain and trouble swallowing. Eyes: Negative for pain and visual disturbance. Respiratory: Negative for cough, chest tightness and shortness of breath. Cardiovascular: Negative for chest pain. Gastrointestinal: Negative for abdominal pain, diarrhea, nausea and vomiting. Genitourinary: Negative for dysuria, hematuria, pelvic pain, vaginal bleeding, vaginal discharge and vaginal pain. Musculoskeletal: Negative for arthralgias, back pain and myalgias. Skin: Negative for rash and wound. Neurological: Positive for weakness and numbness. Negative for syncope, speech difficulty, light-headedness and headaches. Hematological: Negative for adenopathy. Psychiatric/Behavioral: Negative for agitation and confusion. All other systems reviewed and are negative. Pertinent positives and negatives as per HPI. PAST MEDICAL HISTORY Past Medical History: Diagnosis Date Asthma Essential hypertension 03/07/2020 GERD (gastroesophageal reflux disease) Hiatal hernia Pure hypercholesterolemia 03/07/2020 SURGICAL HISTORY Past Surgical History: Procedure Laterality Date FINGER AMPUTATION Right 03/07/2020 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 HYSTERECTOMY ORTHOPEDIC SURGERY CURRENT MEDICATIONS Previous Medications ALBUTEROL 108 (90 BASE) MCG/ACT INHALER inhale 1 puff by mouth and INTO THE LUNGS every 6 hours if needed for shortness of breath ASCORBIC ACID (VITAMIN C) 500 MG TABLET Take 500 mg by mouth in the morning and 500 mg at noon and 500 mg in the evening. ELIQUIS 5 MG TABLET Take 5 mg by mouth 2 times daily. LISINOPRIL 5 MG TABLET Take 5 mg by mouth in the morning. PANTOPRAZOLE (PROTONIX) 40 MG EC TABLET TRELEGY ELLIPTA 100-62.5-25 MCG/ACT AEROSOL POWDER ALLERGIES Advair hfa [fluticasone-salmeterol], Amoxicillin, and Percocet [oxycodone-acetaminophen] FAMILY HISTORY No family history on file. SOCIAL HISTORY Social History Socioeconomic History Marital status: Tobacco Use Smoking status: Former Smokeless tobacco: Never Substance and Sexual Activity Alcohol use: Yes Drug use: Never Social Determinants of Health Financial Resource Strain: Low Risk (05/18/2022) Received from [facility] Overall Financial Resource Strain (CARDIA) Difficulty of Paying Living Expenses: Not hard at all Food Insecurity: No Food Insecurity (05/18/2022) Received from [facility] Hunger Vital Sign Worried About Running Out of Food in the Last Year: Never true Ran Out of Food in the Last Year: Never true Transportation Needs: No Transportation Needs (05/18/2022) Received from [facility] PRAPARE - Transportation Lack of Transportation (Medical): No Lack of Transportation (Non-Medical): No Housing Stability: Unknown (05/18/2022) Received from [facility] Housing Stability Vital Sign Unable to Pay for Housing in the Last Year: No Unstable Housing in the Last Year: No SCREENINGS PHYSICAL EXAM ED Triage Vitals [04/03/24 1748] Temp Heart Rate Resp BP 36.6 C (97.9 F) 83 16 135/76 SpO2 Temp Source Heart Rate Source Patient Position 97 % Oral Monitor Lying BP Location FiO2 (%) Left arm -- Physical Exam Vitals and nursing note reviewed. Constitutional: General: She is not in acute distress. Appearance: Normal appearance. She is not ill-appearing or toxic-appearing. HENT: Head: Normocephalic and atraumatic. Right Ear: External ear normal. Left Ear: External ear normal. Mouth/Throat: Mouth: Mucous membranes are moist. Pharynx: Oropharynx is clear. Eyes: Extraocular Movements: Extraocular movements intact. Conjunctiva/sclera: Conjunctivae normal. Pupils: Pupils are equal, round, and reactive to light. Cardiovascular: Comments: Regular rate and rhythm, normal S1-S2, no murmurs noted. Radial pulses 2+ and symmetric. Pulmonary: Effort: Pulmonary effort is normal. No respiratory distress. Breath sounds: Normal breath sounds. No stridor. No wheezing or rhonchi. Abdominal: Comments: The abdomen is soft, nondistended and nontender. There is no rebound tenderness or guarding. Bowel sounds are normal. Musculoskeletal: Cervical back: Normal range of motion and neck supple. No rigidity or tenderness. Comments: There is no pain on palpation to the spine. Straight leg raise is negative on the left and right. There is no weakness noted with adduction of either thigh. There is no weakness noted hip flexion, knee extension, knee flexion. There is no weakness noted to dorsiflexion of the foot, dorsiflexion of the great toe or plantarflexion of the foot. Patellar reflexes are 2+ bilaterally. There are no sensory deficits to the lower extremities, no saddle anesthesia. Sensation is intact to the groin, perianal sensation is intact. Both feet are cool to the touch, no pulse can be dopplered in the right DP and PT but the patient has intact dorsiflexion plantarflexion range of motion of the toes cap refill is sluggish in the toes on the right. Lymphadenopathy: Cervical: No cervical adenopathy. Skin: General: Skin is warm and dry. Capillary Refill: Capillary refill takes less than 2 seconds. Coloration: Skin is not jaundiced or pale. Findings: No bruising or erythema. Neurological: General: No focal deficit present. Mental Status: She is alert and oriented to person, place, and time. Mental status is at baseline. Cranial Nerves: No cranial nerve deficit. Sensory: No sensory deficit. Motor: No weakness. Coordination: Coordination normal. Comments: No sensory deficits to the right leg actually when testing sensation the patient states it hurts when you are touching her right leg, there is no numbness or sensory deficit. Psychiatric: Mood and Affect: Mood normal. DIAGNOSTIC RESULTS Procedures/EKG: EKG was reviewed by myself. Physician EKG interpretation can be found in [facility] RADIOLOGY (Per Emergency Physician): Interpretation per the Radiologist below, if available at the time of this note: CTA aorta BL iliofemoral runoff w wo Final Result 1. Severe lower extremity atherosclerotic disease. 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 2. 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 3. Severe diverticulosis. Report Dictated on Electronically Signed By: Toño Tang MD Electronically Signed Date/Time: 04/03/2024 9:[address] head wo IV contrast Final Result 1. No acute finding. Chronic left cerebellar infarct.. Report Dictated on Electronically Signed By: Toño Tang MD Electronically Signed Date/Time: 04/03/2024 9:21 PM EDT ED BEDSIDE ULTRASOUND: Performed by ED Physician - none LABS: Labs Reviewed COMPREHENSIVE METABOLIC PANEL - Abnormal Result Value SODIUM 135 POTASSIUM 5.7 (*) CHLORIDE 107 CARBON DIOXIDE 20 (*) ANION GAP 9 UREA NITROGEN 29 (*) CREATININE 1.54 (*) GLUCOSE 115 (*) CALCIUM 9.3 AST (SGOT) 19 ALT 10 ALKALINE PHOSPHATASE 91 ALBUMIN 4.3 BILIRUBIN, TOTAL 1.1 TOTAL PROTEIN 7.7 eGFR 33.2 (*) PROTIME & APTT - Normal PROTHROMBIN TIME 11.7 INR 1.0 APTT 26.7 MAGNESIUM - Normal MAGNESIUM 2.3 TROPONIN I - Normal TROPONIN I 0.014 Narrative: Patients with high levels of Biotin oral intake (ie >5 mg/day) may have falsely decreased Troponin levels. CBC (HEMOGRAM) - Normal Auto WBC 9.3 RBC 4.18 Hemoglobin 12.7 Hematocrit 38.6 MCV 92.3 MCH 30.4 MCHC 32.9 RDW 14.4 Platelets 283 MPV 10.0 APTT APTT APTT All other labs were within normal range or not returned as of this dictation. EMERGENCY DEPARTMENT COURSE and DIFFERENTIAL DIAGNOSIS/MDM: Vitals: Vitals: 04/03/243 04/03/24204504/03/24220204/03/242203 BP: (!) 142/63 (!) 142/63 (!) 151/86 BP Location: Patient Position: Pulse: 75 73 71 76 Resp: 16 Temp: TempSrc: SpO2: 98% 98% 97% Weight: Height: Diagnoses as of 04/03/24 2317 Right leg pain Peripheral arterial disease (HCC) Right leg weakness Atrial fibrillation, unspecified type (HCC) The patient presented with chief complaint of with chief complaint of right leg pain, tingling numbness and weakness of the right leg. Patient states that started after physical therapy today she been having problems with her hip and her right leg with intermittent pain and what she describes as charley horses, PCP set her up for some physical therapy today which she did today no issues she sat afterwards and watch movie and then she went to get up and her legs felt numb and she had trouble walking because of the weakness and numbness. She is on Eliquis. She denies any other neurologic sequelae. She has a greater than 60-year smoking history.. The differential diagnosis associated with this patient's presentation includes sciatica, lumbar radiculopathy, peripheral arterial disease, arterial occlusion, CVA. Our workup consisted of ordering/reviewing: CMP, PT/INR, magnesium, troponin, CBC, CT head, EKG, CTA aorta with runoffs. Diagnostic tests considered but not performed: Considered stroke team activation but the patient has an NIH of 0 and she is on Eliquis making her not a candidate for TNK. To aid in management, I performed an independent interpretation of EKG(s) EKG per my interpretation atrial fibrillation rate 82. I also reviewed external records from [facility]. I discussed their care with hugh. Consideration for escalation of care with: Admission/observation discussed case with Dr. Blankenship, will place her on heparin, she does have reconstitution past the mid femoral occlusion and she has normal range of motion to the lower extremities but she has severe disease to the lower extremities will heparinize or admit her to [facility] in case she needs an emergent angio.. The patient will be Admitted. Patient is in agreement with this plan. Medications sodium chloride 0.9 % infusion (125 mL/hr IntraVENous New Bag 04/03/241918) heparin injection 5,784 Units (has no administration in time range) heparin injection 5,784 Units (has no administration in time range) heparin injection 2,892 Units (has no administration in time range) heparin 25,000 units in dextrose 5% 250mL infusion (premix) (has no administration in time range) sodium chloride 0.9 % bolus 500 mL (0 mL IntraVENous Stopped 04/03/242056) iopamidol (Isovue-370) 76 % injection 75 mL (75 mL IntraVENous Given 04/03/242111) REVAL: CRITICAL CARE TIME None CONSULTS: None PROCEDURES: Unless otherwise noted below, none Procedures Patients symptoms are consistent with sepsis, severe sepsis, or septic shock (If yes use ".sepsiscoremeasure"): no FINAL IMPRESSION 1. Right leg pain 2. Peripheral arterial disease (HCC) 3. Right leg weakness DISPOSITION Admit 04/03/2024 10:27:39 PM PATIENT REFERRED TO: No follow-up provider specified. DISCHARGE MEDICATIONS: New Prescriptions No medications on file (Comment: Please note this report has been produced using speech recognition software and may contain errors related to that system including errors in grammar, punctuation, and spelling, as well as words and phrases that may be inappropriate. If there are any questions or concerns please feel free to contact the dictating provider for clarification.) SEBASTIAN Herrera CNP (electronically signed) Emergency Medicine Provider SEBASTIAN Herrera CNP 04/03/242237 Emergency Department Encounter [facility] Patient: Mel Pop : 1940 Date of Evaluation: 04/03/2024 ED Supervising Physician: Winifred Cornell DO I personally evaluated Mel Pop and made/approved the management plan and take responsibility for the patient management. This will serve as my Supervisory note and shared attestation. I did perform a substantive portion of the visit including all aspects of the Medical Decision Making. I wore appropriate PPE for the entirety of this encounter. In brief, Mel Pop is a 83 y.o. that presents to the emergency department for right leg pain numbness, swelling and weakness after physical therapy. Patient on Eliquis. Focused exam: Vital signs stable afebrile no acute distress, eyes PERRL unremarkable oropharynx, RRR, clear lungs without respiratory distress, bilateral feet cool to the touch no palpable or dopplerable pulse to the right foot range of motion, sensation intact prolonged capillary refill Brief ED course/MDM: 83-year-old female presented to the ED for right leg pain numbness swelling and weakness detailed above. Exam as above. Differential diagnosis includes aortic occlusion, electrolyte abnormality, CVA. Workup significant for severe lower extremity atherosclerotic disease bilateral superficial femoral artery occlusion severely diseased trifurcation vessels small saccular aneurysm right common iliac. Vascular surgery consulted recommends heparin drip and transferred to [facility], 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 Patient admitted to [facility]. Patient in agreement with plan. Diagnostics interpreted by me: I personally discussed the patient's management with other clinicians: All diagnostic, treatment, and disposition decisions were made by myself in conjunction with the [facility]. For all further details of the patient's emergency department visit, please see their documentation. (Comment: Please note this report has been produced using speech recognition software and may contain errors related to that system including errors in grammar, punctuation, and spelling, as well as words and phrases that may be inappropriate. If there are any questions or concerns please feel free to contact the dictating provider for clarification.) Winifred Cornell DO [employer] Winifred Cornell DO 04/06/24 1624 Pt presents via EMS from home. States she had home physical therapy today and did well. After that, she sat down for a few hours and when she stood back up, she almost fell to the floor. Complains of right leg numbness and pain. Bilateral lower leg edema and discoloring. Hx of blood clots in left leg. Vitals stable upon arrival. No SOB or other complaints. documented in this encounter [facility] 04-04-2024 Emergency department Note Multiple attempts made to call report to [facility] with phone number provided by skidder lever operator, but when phone number dialed RN only gets busy tone. Will try again. Shannon Bond RN 04/04/24 [id number] [facility] 04-04-2024 Emergency department Note [facility] at bedside to transport pt to [facility]. Paperwork with EMS Shannon Bond RN 04/04/24 9558 [facility] 04-03-2024 Emergency department Triage note Pt presents via EMS from home. States she had home physical therapy today and did well. After that, she sat down for a few hours and when she stood back up, she almost fell to the floor. Complains of right leg numbness and pain. Bilateral lower leg edema and discoloring. Hx of blood clots in left leg. Vitals stable upon arrival. No SOB or other complaints. [facility] 04-03-2024 Physician Emergency department Note EMERGENCY DEPARTMENT ENCOUNTER Pt Name: Mel Pop Birthdate 1940 Date of evaluation: 04/03/2024 ED Provider: Bernie Cutler APRN - [facility] This patient was seen in conjunction with Dr. Cornell CHIEF COMPLAINT Chief Complaint Patient presents with Numbness Leg Swelling HISTORY OF PRESENT ILLNESS (Location/Symptom, Timing/Onset, Context/Setting, Quality, Duration, Modifying Factors, Severity) Note limiting factors. I wore appropriate PPE for the entirety of this encounter. HPI Mel Pop is a 83 y.o. who presents to the emergency department with chief complaint of right leg pain, tingling numbness and weakness of the right leg. Patient states that started after physical therapy today she been having problems with her hip and her right leg with intermittent pain and what she describes as charley horses, PCP set her up for some physical therapy today which she did today no issues she sat afterwards and watch movie and then she went to get up and her legs felt numb and she had trouble walking because of the weakness and numbness. She is on Eliquis. She denies any other neurologic sequelae. She has a greater than 60-year smoking history. Nursing Notes were reviewed. Limitations to history: None Outside historians: None REVIEW OF SYSTEMS Review of Systems Constitutional: Negative for activity change, appetite change, chills and fever. HENT: Negative for congestion, nosebleeds, sinus pain and trouble swallowing. Eyes: Negative for pain and visual disturbance. Respiratory: Negative for cough, chest tightness and shortness of breath. Cardiovascular: Negative for chest pain. Gastrointestinal: Negative for abdominal pain, diarrhea, nausea and vomiting. Genitourinary: Negative for dysuria, hematuria, pelvic pain, vaginal bleeding, vaginal discharge and vaginal pain. Musculoskeletal: Negative for arthralgias, back pain and myalgias. Skin: Negative for rash and wound. Neurological: Positive for weakness and numbness. Negative for syncope, speech difficulty, light-headedness and headaches. Hematological: Negative for adenopathy. Psychiatric/Behavioral: Negative for agitation and confusion. All other systems reviewed and are negative. Pertinent positives and negatives as per HPI. PAST MEDICAL HISTORY Past Medical History: Diagnosis Date Asthma Essential hypertension 03/07/2020 GERD (gastroesophageal reflux disease) Hiatal hernia Pure hypercholesterolemia 03/07/2020 SURGICAL HISTORY Past Surgical History: Procedure Laterality Date FINGER AMPUTATION Right 03/07/2020 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 HYSTERECTOMY ORTHOPEDIC SURGERY CURRENT MEDICATIONS Previous Medications ALBUTEROL 108 (90 BASE) MCG/ACT INHALER inhale 1 puff by mouth and INTO THE LUNGS every 6 hours if needed for shortness of breath ASCORBIC ACID (VITAMIN C) 500 MG TABLET Take 500 mg by mouth in the morning and 500 mg at noon and 500 mg in the evening. ELIQUIS 5 MG TABLET Take 5 mg by mouth 2 times daily. LISINOPRIL 5 MG TABLET Take 5 mg by mouth in the morning. PANTOPRAZOLE (PROTONIX) 40 MG EC TABLET TRELEGY ELLIPTA 100-62.5-25 MCG/ACT AEROSOL POWDER ALLERGIES Advair hfa [fluticasone-salmeterol], Amoxicillin, and Percocet [oxycodone-acetaminophen] FAMILY HISTORY No family history on file. SOCIAL HISTORY Social History Socioeconomic History Marital status: Tobacco Use Smoking status: Former Smokeless tobacco: Never Substance and Sexual Activity Alcohol use: Yes Drug use: Never Social Determinants of Health Financial Resource Strain: Low Risk (05/18/2022) Received from [facility] Overall Financial Resource Strain (CARDIA) Difficulty of Paying Living Expenses: Not hard at all Food Insecurity: No Food Insecurity (05/18/2022) Received from [facility] Hunger Vital Sign Worried About Running Out of Food in the Last Year: Never true Ran Out of Food in the Last Year: Never true Transportation Needs: No Transportation Needs (05/18/2022) Received from [facility] PRAPARE - Transportation Lack of Transportation (Medical): No Lack of Transportation (Non-Medical): No Housing Stability: Unknown (05/18/2022) Received from [facility] Housing Stability Vital Sign Unable to Pay for Housing in the Last Year: No Unstable Housing in the Last Year: No SCREENINGS PHYSICAL EXAM ED Triage Vitals [04/03/24 1748] Temp Heart Rate Resp BP 36.6 C (97.9 F) 83 16 135/76 SpO2 Temp Source Heart Rate Source Patient Position 97 % Oral Monitor Lying BP Location FiO2 (%) Left arm -- Physical Exam Vitals and nursing note reviewed. Constitutional: General: She is not in acute distress. Appearance: Normal appearance. She is not ill-appearing or toxic-appearing. HENT: Head: Normocephalic and atraumatic. Right Ear: External ear normal. Left Ear: External ear normal. Mouth/Throat: Mouth: Mucous membranes are moist. Pharynx: Oropharynx is clear. Eyes: Extraocular Movements: Extraocular movements intact. Conjunctiva/sclera: Conjunctivae normal. Pupils: Pupils are equal, round, and reactive to light. Cardiovascular: Comments: Regular rate and rhythm, normal S1-S2, no murmurs noted. Radial pulses 2+ and symmetric. Pulmonary: Effort: Pulmonary effort is normal. No respiratory distress. Breath sounds: Normal breath sounds. No stridor. No wheezing or rhonchi. Abdominal: Comments: The abdomen is soft, nondistended and nontender. There is no rebound tenderness or guarding. Bowel sounds are normal. Musculoskeletal: Cervical back: Normal range of motion and neck supple. No rigidity or tenderness. Comments: There is no pain on palpation to the spine. Straight leg raise is negative on the left and right. There is no weakness noted with adduction of either thigh. There is no weakness noted hip flexion, knee extension, knee flexion. There is no weakness noted to dorsiflexion of the foot, dorsiflexion of the great toe or plantarflexion of the foot. Patellar reflexes are 2+ bilaterally. There are no sensory deficits to the lower extremities, no saddle anesthesia. Sensation is intact to the groin, perianal sensation is intact. Both feet are cool to the touch, no pulse can be dopplered in the right DP and PT but the patient has intact dorsiflexion plantarflexion range of motion of the toes cap refill is sluggish in the toes on the right. Lymphadenopathy: Cervical: No cervical adenopathy. Skin: General: Skin is warm and dry. Capillary Refill: Capillary refill takes less than 2 seconds. Coloration: Skin is not jaundiced or pale. Findings: No bruising or erythema. Neurological: General: No focal deficit present. Mental Status: She is alert and oriented to person, place, and time. Mental status is at baseline. Cranial Nerves: No cranial nerve deficit. Sensory: No sensory deficit. Motor: No weakness. Coordination: Coordination normal. Comments: No sensory deficits to the right leg actually when testing sensation the patient states it hurts when you are touching her right leg, there is no numbness or sensory deficit. Psychiatric: Mood and Affect: Mood normal. DIAGNOSTIC RESULTS Procedures/EKG: EKG was reviewed by myself. Physician EKG interpretation can be found in [facility] RADIOLOGY (Per Emergency Physician): Interpretation per the Radiologist below, if available at the time of this note: CTA aorta BL iliofemoral runoff w wo Final Result 1. Severe lower extremity atherosclerotic disease. 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 2. 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 3. Severe diverticulosis. Report Dictated on Electronically Signed By: Toño Tang MD Electronically Signed Date/Time: 04/03/2024 9:[address] head wo IV contrast Final Result 1. No acute finding. Chronic left cerebellar infarct.. Report Dictated on Electronically Signed By: Toño Tang MD Electronically Signed Date/Time: 04/03/2024 9:21 PM EDT ED BEDSIDE ULTRASOUND: Performed by ED Physician - none LABS: Labs Reviewed COMPREHENSIVE METABOLIC PANEL - Abnormal Result Value SODIUM 135 POTASSIUM 5.7 (*) CHLORIDE 107 CARBON DIOXIDE 20 (*) ANION GAP 9 UREA NITROGEN 29 (*) CREATININE 1.54 (*) GLUCOSE 115 (*) CALCIUM 9.3 AST (SGOT) 19 ALT 10 ALKALINE PHOSPHATASE 91 ALBUMIN 4.3 BILIRUBIN, TOTAL 1.1 TOTAL PROTEIN 7.7 eGFR 33.2 (*) PROTIME & APTT - Normal PROTHROMBIN TIME 11.7 INR 1.0 APTT 26.7 MAGNESIUM - Normal MAGNESIUM 2.3 TROPONIN I - Normal TROPONIN I 0.014 Narrative: Patients with high levels of Biotin oral intake (ie >5 mg/day) may have falsely decreased Troponin levels. CBC (HEMOGRAM) - Normal Auto WBC 9.3 RBC 4.18 Hemoglobin 12.7 Hematocrit 38.6 MCV 92.3 MCH 30.4 MCHC 32.9 RDW 14.4 Platelets 283 MPV 10.0 APTT APTT APTT All other labs were within normal range or not returned as of this dictation. EMERGENCY DEPARTMENT COURSE and DIFFERENTIAL DIAGNOSIS/MDM: Vitals: Vitals: 04/03/24 2033 04/03/24204504/03/24220204/03/242203 BP: (!) 142/63 (!) 142/63 (!) 151/86 BP Location: Patient Position: Pulse: 75 73 71 76 Resp: 16 Temp: TempSrc: SpO2: 98% 98% 97% Weight: Height: Diagnoses as of 04/03/24 2317 Right leg pain Peripheral arterial disease (HCC) Right leg weakness Atrial fibrillation, unspecified type (HCC) The patient presented with chief complaint of with chief complaint of right leg pain, tingling numbness and weakness of the right leg. Patient states that started after physical therapy today she been having problems with her hip and her right leg with intermittent pain and what she describes as charley horses, PCP set her up for some physical therapy today which she did today no issues she sat afterwards and watch movie and then she went to get up and her legs felt numb and she had trouble walking because of the weakness and numbness. She is on Eliquis. She denies any other neurologic sequelae. She has a greater than 60-year smoking history.. The differential diagnosis associated with this patient's presentation includes sciatica, lumbar radiculopathy, peripheral arterial disease, arterial occlusion, CVA. Our workup consisted of ordering/reviewing: CMP, PT/INR, magnesium, troponin, CBC, CT head, EKG, CTA aorta with runoffs. Diagnostic tests considered but not performed: Considered stroke team activation but the patient has an NIH of 0 and she is on Eliquis making her not a candidate for TNK. To aid in management, I performed an independent interpretation of EKG(s) EKG per my interpretation atrial fibrillation rate 82. I also reviewed external records from none. I discussed their care with none. Consideration for escalation of care with: Admission/observation discussed case with Dr. Blankenship, will place her on heparin, she does have reconstitution past the mid femoral occlusion and she has normal range of motion to the lower extremities but she has severe disease to the lower extremities will heparinize or admit her to [facility] in case she needs an emergent angio.. The patient will be Admitted. Patient is in agreement with this plan. Medications sodium chloride 0.9 % infusion (125 mL/hr IntraVENous New Bag 04/03/241918) heparin injection 5,784 Units (has no administration in time range) heparin injection 5,784 Units (has no administration in time range) heparin injection 2,892 Units (has no administration in time range) heparin 25,000 units in dextrose 5% 250mL infusion (premix) (has no administration in time range) sodium chloride 0.9 % bolus 500 mL (0 mL IntraVENous Stopped 04/03/242056) iopamidol (Isovue-370) 76 % injection 75 mL (75 mL IntraVENous Given 04/03/242111) REVAL: CRITICAL CARE TIME None CONSULTS: None PROCEDURES: Unless otherwise noted below, none Procedures Patients symptoms are consistent with sepsis, severe sepsis, or septic shock (If yes use ".sepsiscoremeasure"): no FINAL IMPRESSION 1. Right leg pain 2. Peripheral arterial disease (HCC) 3. Right leg weakness DISPOSITION Admit 04/03/2024 10:27:39 PM PATIENT REFERRED TO: No follow-up provider specified. DISCHARGE MEDICATIONS: New Prescriptions No medications on file (Comment: Please note this report has been produced using speech recognition software and may contain errors related to that system including errors in grammar, punctuation, and spelling, as well as words and phrases that may be inappropriate. If there are any questions or concerns please feel free to contact the dictating provider for clarification.) SEBASTIAN Herrera CNP (electronically signed) Emergency Medicine Provider SEBASTIAN Herrera CNP 04/03/24 2238 [facility] 04-03-2024 Physician Emergency department Note Emergency Department Encounter [facility] Patient: Mel Pop : 1940 Date of Evaluation: 04/03/2024 ED Supervising Physician: Winifred Cornell DO I personally evaluated Mel Pop and made/approved the management plan and take responsibility for the patient management. This will serve as my Supervisory note and shared attestation. I did perform a substantive portion of the visit including all aspects of the Medical Decision Making. I wore appropriate PPE for the entirety of this encounter. In brief, Mel Pop is a 83 y.o. that presents to the emergency department for right leg pain numbness, swelling and weakness after physical therapy. Patient on Eliquis. Focused exam: Vital signs stable afebrile no acute distress, eyes PERRL unremarkable oropharynx, RRR, clear lungs without respiratory distress, bilateral feet cool to the touch no palpable or dopplerable pulse to the right foot range of motion, sensation intact prolonged capillary refill Brief ED course/MDM: 83-year-old female presented to the ED for right leg pain numbness swelling and weakness detailed above. Exam as above. Differential diagnosis includes aortic occlusion, electrolyte abnormality, CVA. Workup significant for severe lower extremity atherosclerotic disease bilateral superficial femoral artery occlusion severely diseased trifurcation vessels small saccular aneurysm right common iliac. Vascular surgery consulted recommends heparin drip and transferred to [facility], 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 Patient admitted to [facility]. Patient in agreement with plan. Diagnostics interpreted by me: I personally discussed the patient's management with other clinicians: All diagnostic, treatment, and disposition decisions were made by myself in conjunction with the [facility]. For all further details of the patient's emergency department visit, please see their documentation. (Comment: Please note this report has been produced using speech recognition software and may contain errors related to that system including errors in grammar, punctuation, and spelling, as well as words and phrases that may be inappropriate. If there are any questions or concerns please feel free to contact the dictating provider for clarification.) Winifred Cornell DO [employer] Winifred Cornell DO 04/06/24 [id number] [employer] Work Phone: 07-27-2023 History of Present illness Narrative [facility] [address] [place] [address] [address] [place] [address] Dept: [phone] Dept Mel Pop [phone] 07/27/2023 HISTORY OF PRESENT ILLNESS: Mel is a 82 y.o. female here today for evaluation of her left LE Mel states the problem has been present for about 1-2 month. She has been complaining of left LE pain with no injury. She has has a US that was normal. Her PCP ordered a MRI for further evaluation. She was told that the MRI showed a tumor and to follow up with ortho. She reports that she feels some tightness in her legs. She has fallen in the past and her greatest fear is falling again. She has a walker at home which she does not use. She feels that her balance is not very good. Mel has tried or has been treated with the following: modifying her activity level and avoiding those activities which aggravate the problem, NSAID's, and walking aids (crutches, cane, a walker,knee scooter,wheelchair, etc). Review of Systems Constitutional: Negative for activity change. HENT: Negative for congestion. Cardiovascular: Negative for leg swelling. Musculoskeletal: Positive for gait problem and joint swelling. Negative for arthralgias. Skin: Negative for wound. Neurological: Positive for weakness. PAST MEDICAL HISTORY: Past Medical History: Diagnosis Date Asthma Essential hypertension 03/07/2020 GERD (gastroesophageal reflux disease) Hiatal hernia Pure hypercholesterolemia 03/07/2020 Allergies Allergen Reactions Advair Hfa [Fluticasone-Salmeterol] Arm numbness Amoxicillin Vomiting and diarrhea Percocet [Oxycodone-Acetaminophen] Itching PHYSICAL EXAM: Ht 5' 4" (1.626 m) Wt 159 lb (72.1 kg) BMI 27.29 kg/m This is an age appropriate appearing female who is alert and oriented x 3. The patient appears well nourished. Psychiatric: The patient is able to verbalize normally and seems to have a good understanding of her situation. left lower extremity examination Lymphatic System: No areas of swelling are seen Vascular: Dorsalis pedis pulse: 2+ Posterior tibial pulse: 2+ Capillary refill is less than 3 seconds Skin/nails: Normal appearance, warm and dry Hair growth present on foot and toes Neurologic: Sensation intact to light touch throughout the foot and the ankle Muscle: Muscle strength testing: Anterior tibialis: 5/5 Posterior tibialis: 5/5 Peroneus brevis: 5/5 Peroneus longus: 5/5 Gastrocsoleus: 5/5 No palpable mass is noted along the medial aspect of the leg. The skin is normal in appearance. Straight leg raise was negative except for tight posterior musculature. Gait and Station: Mel is able to ambulate with a shuffling type gait Mel is unable to stand unassisted but does maintain balance RADIOGRAPHIC INTERPRETATION: I reviewed the MRI images with Mel and her daughter. I pointed out the area of the lipoma and explained that no signs of malignant degeneration were seen within the lipoma itself. No other abnormalities were noted within the leg. MRI: 06/15/23 Findings: No abnormal bone marrow signal intensity. No fracture or periostitis. Mild, nonspecific muscle edema involving all compartments of the leg. No muscle tear or atrophy. Within the mid to lower medial head of the gastrocnemius muscle, there is a circumscribed 1.3 x 2.9 x 6.0 cm lipomatous lesion without internal nodularity or septation. No additional solid or cystic lesions within the subcutaneous soft tissues or intramuscular compartments. Although suboptimally evaluated on this exam, the knee and ankle joints are intact without evidence of fracture, subluxation, or effusion. The visualized portions of the right leg are unremarkable aside from susceptibility artifact at the medial and lateral ankle resulting from ORIF hardware. IMPRESSION: Impression: 1. Mild, nonspecific muscle edema involving all compartments of the left leg, appearing similar to the right leg. 2. Within the mid to lower medial head of the gastrocnemius muscle, there is a circumscribed 1.3 x 2.9 x 6.0 cm lipomatous lesion without internal nodularity or septation. REVIEW OF RELATED PREVIOUS DOCUMENTATION: No documents related to the current problem(s) were reviewed or no documents were available for review. 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 I explained to Mel and her daughter that the lipoma appears to be benign and does not explain some of her discomfort or gait abnormalities. I explained that some of her gait abnormalities are likely due to her age. I recommended that she use a walker is much as possible which should help with her balance issues. I explained that removal of the lipoma would not improve her current complaints. I explained that the lipoma is benign and does not pose risks to her health. I did explain that if the lipoma starts to grow in size she needs to call the office so that she can be seen for reevaluation. Follow up if symptoms worsen or fail to improve. Electronically signed by Ming Weinberg MD [facility] Department of Orthopedic surgery 07/27/2023 5:21 PM Voice recognition was used for portions of this note and although it was reviewed prior to signing some incorrect words or phrases could be present. documented in this encounter [facility] 07-06-2022 Miscellaneous Notes PATIENT INFORMATION Record ID: [id number] Patient Name: Mel [facility] Hospital: [facility] [place]: [facility] Attending: Iwona Chu Center: Internal Medicine and Geriatrics INSTRUCTIONS All Clear SN to remind patient of next upcoming appointment date, time, location All Clear All Clear All Clear SURVEY INFORMATION Medical/Nurse Extractor Operator: Inés Tubbs 1. Your discharge instructions are important in guiding you through the recovery process. Is there anything I could help you clarify on your discharge instructions? (Standard Question) No 2. Do you have your follow up appointment related to your hospital stay scheduled within the next 30 days? (Standard Question) Yes 3. Do you have all the necessary equipment and supplies at home? (Standard Question) Yes 4. Many patients have concerns about their medications once they are home. Do you have any questions about getting or taking your medications? (Standard Question) No 5. Do you have any new or different symptoms? (Standard Question) No documented in this encounter [facility] 06-29-2022 Note HNO ID: [id number] Author: Joana Tolbert RPh Service: Pharmacy Author Type: Pharmacist Type: Plan of Care Filed: 06/29/2022 3:39 PM Note Text: DISCHARGE MEDICATION REVIEW AND COUNSELING BY PHARMACY Patient Name: Mel Castillo Account #: Data Unavailable Admission Date: 06/16/2022 Date of Contact: June 29, 2022 Time of Contact: 3:32 PM LEARNERS Persons Present: Patient Primary Learner: Patient Medication list was reviewed by a Pharmacist for drug interactions or drug related problems:Yes Below is a summary of pharmacist recommendations discussed with LIP: No Recommendations at this time from Discharge Medication List. Apixaban education completed (see formal note on 06/29) Pt with GIB, and now stable. Pt has been tolerating anticoag therapy (thrombi) Noted opioid Rx for 3 days- appropriate, pt has tolerated. Pt will not need more than 3 days Reviewed medications- appropriate RN and outpatient [facility] pharmacy aware medications are pending to be picked up or delivered to pt room (BSD) once pt's caregiver comes in to pay for the Copay-- RN aware of closing time Pt receiving free 30 days apixaban from us. Completed cost check as well after this- which was $47 per month The patient was counseled on the medication(s) listed below and was given the opportunity to ask questions regarding indication, dosage, side effects and drug interactions READINESS TO LEARN COGNITIVE ABILITY:Alert and oriented MOTIVATION TO LEARN:Eager Interested FAMILY SUPPORT:Unable to assess - Family not present INSTRUCTION PROVIDED TO:Patient PATIENT LEARNS BEST BY:Individual Instruction Written Instruction - Hand-outs Verbal Instruction FACTORS AFFECTING LEARNING:None PHYSICAL LIMITATIONS AFFECTING LEARNING:None LEARNING RESPONSE PATIENT / FAMILY RESPONSE:Verbalizes understanding of: The signs and symptoms of a worsening condition that warrant a call to the physician. The correct actions to take to manage symptoms associated with his/her disease/illness. The physical restrictions and recommendations after discharge from the hospital. Accurate knowledge of prescribed medication prior to discharge. The correct action to take if medication dose is missed. The side effects associated with the medication that warrant a call to the physician. Post discharge follow up instruction Joana Tolbert tim June 29, 2022 3:32 PM Medication List START taking these medications acetaminophen 325 mg tablet Commonly known as: TYLENOL Take 2 tablets by mouth every 6 hours as needed for pain. apixaban 5 mg (74 tabs) Commonly known as: ELIQUIS Take 2 tablets (10 mg) by mouth twice daily for 7 days. Then take 1 tablet (5 mg) by mouth twice daily for 23 days ascorbic acid (vitamin C) 500 mg tablet Commonly known as: VITAMIN C Take 1 tablet by mouth three times daily. bacitracin 500 unit/gram ointment Apply to affected area once daily for 7 days. guaiFENesin 600 mg 12 hr tablet Commonly known as: MUCINEX Take 1 tablet by mouth every 12 hours for 7 days. HYDROcodone-acetaminophen 5-325 mg per tablet Commonly known as: NORCO Take 1-2 tablets by mouth every 6 hours as needed for up to 3 days. lactobacillus rhamnosus 10 billion cell capsule Commonly known as: CULTURELLE Take 1 capsule by mouth once daily. metoprolol tartrate (short acting) 25 mg tablet Commonly known as: LOPRESSOR Take 1 tablet by mouth every [address] 40 mg tablet Commonly known as: PROTONIX Take 1 tablet by mouth twice daily before meals (0600/1600). sucralfate 1 gram tablet Commonly known as: CARAFATE Take 1 tablet by mouth four times daily. * zinc oxide 20 % ointment Apply to affected area as needed. * zinc oxide 20 % ointment Apply to affected area twice daily. * This list has 2 medication(s) that are the same as other medications prescribed for you. Read the directions carefully, and ask your doctor or other care provider to review them with you. CONTINUE taking these medications lisinopril 5 mg tablet Commonly known as: ZESTRIL, PRINIVIL STOP taking these medications amLODIPine 10 mg tablet Commonly known as: NORVASC dexAMETHasone 4 mg tablet Commonly known as: DECADRON Where to Get Your Medications These medications were sent to [facility] [address] [place] [id number] Hours: Tuesday-Tuesday, 8am-4:30pm apixaban 5 mg (74 tabs) ascorbic acid (vitamin C) 500 mg tablet bacitracin 500 unit/gram ointment guaiFENesin 600 mg 12 hr tablet HYDROcodone-acetaminophen 5-325 mg per tablet lactobacillus rhamnosus 10 billion cell capsule metoprolol tartrate (short acting) [address] 40 mg tablet sucralfate 1 gram tablet [facility] 06-29-2022 Note HNO ID: [id number] Author: Kassidy Mejia RN Service: Care Management Author Type: Registered Nurse Type: Care Mgt Progress Note Filed: 06/29/2022 12:39 PM Note Text: CARE MANAGEMENT DISCHARGE NOTE SERVICE DATE: 06/29/2022 SERVICE TIME: 12:38 PM LOS: 13 days Admission Date: 06/16/2022 DISCHARGE ARRANGEMENT (list agency and phone number) Discharge Arrangement: Home with Home Health Provider Name: [facility] CAREGIVER ASSESSMENT: Caregiver is ready, willing and able to meet the patient's needs as recommended by the inter-professional team:: Yes Patient's transition needs and plan for meeting these needs: [facility] HANDOFF COMMUNICATION: TRANSPORTATION ARRANGEMENTS: Transportation Arrangements: Car ADDITIONAL CONTACT RESOURCES: [facility] was able to approve and deliver home O2. SIGNATURE: Kassidy Mejia RN PATIENT NAME: Mel Castillo DATE: June 29, 2022 TIME: 12:38 PM PAGER/CONTACT #: [phone] [facility] 06-28-2022 Note HNO ID: [id number] Author: Iwona Chu DO Service: Hospital Medicine Author Type: Physician Type: Progress Notes Filed: 06/28/2022 8:58 PM Note Text: Needs O2 arranged before discharge [facility] 06-28-2022 Note HNO ID: [id number] Author: Irene Han RN Service: Care Management Author Type: Registered Nurse Type: Care Mgt Progress Note Filed: 06/28/2022 2:39 PM Note Text: CARE MANAGEMENT PROGRESS NOTE SERVICE DATE: 06/28/2022 SERVICE TIME: 1358 LOS: 12 days Needs Prior to Discharge: To Be Determined;Home Care Order;Equipment Delivery;Discharge Prescriptions;Pharmacy Bedside Delivery;Other: See Comment;Oxygen Set-up;Procedure;Patient/Family (medical clearance) IMM Follow Up Copy Given: Yes Copy given to:: Patient Method: In Person (verbalized understanding) Referral sent to [facility] for home going O2. Awaiting ambulatory pox to be completed. Plan to return home with family support and HHC through [facility]. Family to transport. Will need home O2/HC orders, prior to dc. IMM completed. UPDATE @ 1435: [facility] is outside of the patient's service area. Additional DMR referrals sent to [facility] and [facility]; awaiting response. Will need accepting DMR provider and home O2 delivery, prior to discharge. Oxygen/HC orders in [facility]. SIGNATURE: Irene Han RN PATIENT NAME: Mel Castillo DATE: June 28, 2022 TIME: 1:58 PM PAGER/CONTACT #: [phone] [facility] 06-28-2022 Note HNO ID: [id number] Author: Iwona Chu DO Service: Hospital Medicine Author Type: Physician Type: Progress Notes Filed: 06/28/2022 2:24 PM Note Text: INPATIENT PROGRESS NOTE SERVICE DATE: 06/28/2022 SERVICE TIME: Subjective CHIEF COMPLAINT: f/u medical issues listed below INTERVAL HPI: 91% RA rest 83% RA walking in room 91% 2L walking in room Current Facility-Administered Medications Medication Dose Route Frequency sodium chloride 0.9 % (flush) 3-5 mL (BD POSIFLUSH) 3-5 mL INTRAVENOUS q 12 H HYDROcodone 5 mg - acetaminophen 325 mg tablet (NORCO) 1-2 tablet ORAL q 6 H PRN acetaminophen 650 mg tab(s) (TYLENOL) 650 mg ORAL q 8 H metoprolol tartrate (short acting) 25 mg tab(s) (LOPRESSOR) 25 mg ORAL q 12 H NaCl 0.9% iv flush bag 20 mL INTRAVENOUS PRN HYDROmorphone (PF) 0.5 mg injection (DILAUDID) 0.5 mg INTRAVENOUS q 3 H PRN ascorbic acid (vitamin C) 500 mg tab(s) (VITAMIN C) 500 mg ORAL TID zinc oxide 20 % TOPICAL PRN lactobacillus rhamnosus 10 billion cell (CULTURELLE) capsule 1 capsule ORAL DAILY zinc oxide 20 % TOPICAL BID sucralfate 1 g tab(s) (CARAFATE) 1 g ORAL QID pantoprazole DR 40 mg tab(s) (PROTONIX) 40 mg ORAL BID AC (0600/1600) guaiFENesin 600 mg ER tab(s) (MUCINEX) 600 mg ORAL q 12 H ipratropium-albuterol 3 mL nebulizer solution (DUONEB) 3 mL INHALATION q 4 H PRN ampicillin-sulbactam iv piggyback 1.5 g in NaCl 0.9% 100 mL Vial-Bag (UNASYN) 1.5 g INTRAVENOUS q 6 H apixaban 10 mg tab(s) (ELIQUIS) 10 mg ORAL BID Followed by [START ON 07/02/2022] apixaban 5 mg tab(s) (ELIQUIS) 5 mg ORAL BID Objective PHYSICAL EXAM: BP 149/76 Pulse 100 Temp (Src) 97.2 (Oral) Resp 20 Ht 5' 4" (1.63m) Wt 156 lb 15.5 oz (71.2kg) SpO2 95% BMI 26.93 kg/(m2). O2 Therapy: Nasal Cannula, Liters: 2 Physical Exam Performed GENERAL: Alert, no distress, cooperative Weak- HEAD/SINUSES: No significant findings EARS: External ears normal NOSE: Nares normal. Septum midline. OROPHARYNX: Lips normal. LUNGS: Lungs clear CARDIAC:reg ABDOMEN: Abdomen soft, NT EXTREMITIES: 2+LE edema- LLE arturo wrap in place- L posterior knee suture noted- DATA: Diagnostic tests reviewed for today's visit: Most recent labs and imaging results. Assessment/Plan 81 yo F admit 06/16/22 for left leg pain, discoloration and inability to ambulate. Found to have LLE DVT 06/16/22 US Positive study for acute proximal DVT in the left lower extremity involving all veins with essentially occlusive thrombus. Nondiagnostic study for calf DVT in the left lower extremity. Positive study for superficial thrombophlebitis in the imaged segments of the left lower extremity involving the visualized segments of the greater and small saphenous veins. 06/16/22 Venogram with intravascular ultrasound Ultrasound guidance was used to identify the patient's left popliteal vein. This was accessed with a micropuncture needle and serially upsized to a 5-Cameroonian sheath. A venogram was then performed, which showed thrombus within the patient's left femoral vein including the common femoral vein. 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 Some collaterals were noted as well. The patient had a known existing IVC filter. There was flow through the filter noted indicating that the filter itself was not significantly thrombosed. At this time, the sheath was upsized to an 8-Cameroonian sheath. An intravascular ultrasound was performed. This showed again chronic thrombus throughout the iliac system as well as evidence of fresh thrombus in the femoral system. Multiple attempts were made at this point to upsize to a larger sheath, so that thrombectomy could be performed. However, the patient's veins were not of adequate size for this size sheath. Therefore, since the thrombus was thought to be primarily chronic within the iliac vein, the sheath was then pulled On anticoagulant: eliquis # PAD CTA abd/pel 06/16/22 Occlusion of the left superficial femoral artery and left proximal and mid popliteal artery, with reconstitution of flow in the distal popliteal artery. Diminished caliber of the left anterior tibial artery with distal occlusion. Additional vascular findings in the body of report # pneumonia On antibiotics: Unasyn Azithromycin Pt has completed treatment with antibiotics. # tobacco Recently quit apr/may Encourage complete cessation # hypoxia on exertion-needs 2 L with exertion Suspect COPD given tobacco use 91% RA rest 83% RA walking in room 91% 2L walking in room # Anemia, melena EGD 06/21/22 LA Grade D esophagitis Large, 1.5cm duodenal bulb ulcer without high risk stigmata Recommendations: - Would continue with IV PPI BID for now - Ok to resume anticoagulation and we can monitor closely for signs of overt GI (more content not included)... [facility] 06-27-2022 Note HNO ID: [id number] Author: Iwona Chu DO Service: Hospital Medicine Author Type: Physician Type: Progress Notes Filed: 06/27/2022 4:17 PM Note Text: INPATIENT PROGRESS NOTE SERVICE DATE: 06/27/2022 SERVICE TIME: Subjective CHIEF COMPLAINT: f/u medical issues listed below INTERVAL HPI: Still SOB Current Facility-Administered Medications Medication Dose Route Frequency sodium chloride 0.9 % (flush) 3-5 mL (BD POSIFLUSH) 3-5 mL INTRAVENOUS q 12 H HYDROcodone 5 mg - acetaminophen 325 mg tablet (NORCO) 1-2 tablet ORAL q 6 H PRN acetaminophen 650 mg tab(s) (TYLENOL) 650 mg ORAL q 8 H metoprolol tartrate (short acting) 25 mg tab(s) (LOPRESSOR) 25 mg ORAL q 12 H NaCl 0.9% iv flush bag 20 mL INTRAVENOUS PRN HYDROmorphone (PF) 0.5 mg injection (DILAUDID) 0.5 mg INTRAVENOUS q 3 H PRN ascorbic acid (vitamin C) 500 mg tab(s) (VITAMIN C) 500 mg ORAL TID zinc oxide 20 % TOPICAL PRN lactobacillus rhamnosus 10 billion cell (CULTURELLE) capsule 1 capsule ORAL DAILY zinc oxide 20 % TOPICAL BID sucralfate 1 g tab(s) (CARAFATE) 1 g ORAL QID pantoprazole DR 40 mg tab(s) (PROTONIX) 40 mg ORAL BID AC (0600/1600) guaiFENesin 600 mg ER tab(s) (MUCINEX) 600 mg ORAL q 12 H ipratropium-albuterol 3 mL nebulizer solution (DUONEB) 3 mL INHALATION q 4 H PRN ampicillin-sulbactam iv piggyback 1.5 g in NaCl 0.9% 100 mL Vial-Bag (UNASYN) 1.5 g INTRAVENOUS q 6 H apixaban 10 mg tab(s) (ELIQUIS) 10 mg ORAL BID Followed by [START ON 07/02/2022] apixaban 5 mg tab(s) (ELIQUIS) 5 mg ORAL BID azithromycin 250 mg tab(s) (ZITHROMAX) 250 mg ORAL DAILY Objective PHYSICAL EXAM: BP 128/68 Pulse 90 Temp (Src) 97.5 (Oral) Resp 18 Ht 5' 4" (1.63m) Wt 156 lb 15.5 oz (71.2kg) SpO2 96% BMI 26.93 kg/(m2). O2 Therapy: Nasal Cannula, Liters: 2 Physical Exam Performed GENERAL: Alert, no distress, cooperative Weak- HEAD/SINUSES: No significant findings EARS: External ears normal NOSE: Nares normal. Septum midline. OROPHARYNX: Lips normal. LUNGS: Lungs clear CARDIAC:reg ABDOMEN: Abdomen soft, NT EXTREMITIES: 2+LE edema- LLE arturo wrap in place- L posterior knee suture noted- DATA: Diagnostic tests reviewed for today's visit: Most recent labs and imaging results. Assessment/Plan # Left lower extremity deep vein thrombosis. 06/16/22 Venogram with intravascular ultrasound Ultrasound guidance was used to identify the patient's left popliteal vein. This was accessed with a micropuncture needle and serially upsized to a 5-Cameroonian sheath. A venogram was then performed, which showed thrombus within the patient's left femoral vein including the common femoral vein. 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 Some collaterals were noted as well. The patient had a known existing IVC filter. There was flow through the filter noted indicating that the filter itself was not significantly thrombosed. At this time, the sheath was upsized to an 8-Cameroonian sheath. An intravascular ultrasound was performed. This showed again chronic thrombus throughout the iliac system as well as evidence of fresh thrombus in the femoral system. Multiple attempts were made at this point to upsize to a larger sheath, so that thrombectomy could be performed. However, the patient's veins were not of adequate size for this size sheath. Therefore, since the thrombus was thought to be primarily chronic within the iliac vein, the sheath was then pulled On anticoagulant: eliquis # PAD CTA abd/pel 06/16/22 Occlusion of the left superficial femoral artery and left proximal and mid popliteal artery, with reconstitution of flow in the distal popliteal artery. Diminished caliber of the left anterior tibial artery with distal occlusion. Additional vascular findings in the body of report # pneumonia On antibiotics: Unasyn Azithromycin # tobacco Recently quit apr/may # Anemia, melena EGD 06/21/22 LA Grade D esophagitis Large, 1.5cm duodenal bulb ulcer without high risk stigmata Recommendations: - Would continue with IV PPI BID for now - Ok to resume anticoagulation and we can monitor closely for signs of overt GIB - Ok for clear liquid diet and then advance as tolerated - Would recommend transfusing 1U PRBC today given soft BPs during procedure today (pre-procedural Hbg of 6.9) and anticipation of restarting anticoagulation - Please check for Hpylori serology and treat empirically if positive # Acute sigmoid diverticulitis per CT abd/pel w IV con 06/20/22 Pt was on zosyn # L hip deep tissue pressure injury See wound care eval and rec 06/21/22 Discharge planning: PT eval on 06/21/22 rec subacute/SNF OT eval on 06/22/22 rec subacute/SNF Per CM note 06/25/22 Plan for pt to return home with her son and his at d/c. [facility] is able to accept for hh (more content not included)... [facility] 06-26-2022 Note HNO ID: [id number] Author: Iwona Chu DO Service: Hospital Medicine Author Type: Physician Type: Progress Notes Filed: 06/27/2022 3:43 PM Note Text: INPATIENT PROGRESS NOTE SERVICE DATE: 06/26/2022 SERVICE TIME: 12:28 p Subjective CHIEF COMPLAINT: f/u medical issues listed below INTERVAL HPI: Coughing yellow thick sputum Current Facility-Administered Medications Medication Dose Route Frequency sodium chloride 0.9 % (flush) 3-5 mL (BD POSIFLUSH) 3-5 mL INTRAVENOUS q 12 H HYDROcodone 5 mg - acetaminophen 325 mg tablet (NORCO) 1-2 tablet ORAL q 6 H PRN acetaminophen 650 mg tab(s) (TYLENOL) 650 mg ORAL q 8 H metoprolol tartrate (short acting) 25 mg tab(s) (LOPRESSOR) 25 mg ORAL q 12 H NaCl 0.9% iv flush bag 20 mL INTRAVENOUS PRN HYDROmorphone (PF) 0.5 mg injection (DILAUDID) 0.5 mg INTRAVENOUS q 3 H PRN ascorbic acid (vitamin C) 500 mg tab(s) (VITAMIN C) 500 mg ORAL TID zinc oxide 20 % TOPICAL PRN lactobacillus rhamnosus 10 billion cell (CULTURELLE) capsule 1 capsule ORAL DAILY zinc oxide 20 % TOPICAL BID sucralfate 1 g tab(s) (CARAFATE) [address] QID [address] 40 mg tab(s) (PROTONIX) 40 mg ORAL BID AC (0600/1600) guaiFENesin 600 mg ER tab(s) (MUCINEX) 600 mg ORAL q 12 H methylPREDNISolone sod succinate(PF) 40 mg injection (SOLU-Medrol) 40 mg INTRAVENOUS DAILY ipratropium-albuterol 3 mL nebulizer solution (DUONEB) 3 mL INHALATION q 4 H PRN ampicillin-sulbactam iv piggyback 1.5 g in NaCl 0.9% 100 mL Vial-Bag (UNASYN) 1.5 g INTRAVENOUS q 6 H apixaban 10 mg tab(s) (ELIQUIS) 10 mg ORAL BID Followed by [START ON 07/02/2022] apixaban 5 mg tab(s) (ELIQUIS) 5 mg ORAL BID azithromycin 250 mg tab(s) (ZITHROMAX) 250 mg ORAL DAILY Objective PHYSICAL EXAM: BP 124/60 Pulse 81 Temp (Src) 97.7 (Oral) Resp 18 Ht 5' 4" (1.63m) Wt 156 lb 15.5 oz (71.2kg) SpO2 96% BMI 26.93 kg/(m2). O2 Therapy: Nasal Cannula, Liters: 2 Physical Exam Performed GENERAL: Alert, no distress, cooperative SKIN: Skin color, texture, turgor normal. No rashes or lesions. HEAD/SINUSES: No significant findings EARS: External ears normal NOSE: Nares normal. Septum midline. OROPHARYNX: Lips normal. LUNGS: Lungs clear CARDIAC:reg ABDOMEN: Abdomen soft EXTREMITIES: 2+LE edema LLE deep pink in color DATA: Diagnostic tests reviewed for today's visit: Most recent labs and imaging results. Assessment/Plan # Left lower extremity deep vein thrombosis. 06/16/22 Venogram with intravascular ultrasound Ultrasound guidance was used to identify the patient's left popliteal vein. This was accessed with a micropuncture needle and serially upsized to a 5-Cameroonian sheath. A venogram was then performed, which showed thrombus within the patient's left femoral vein including the common femoral vein. 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 Some collaterals were noted as well. The patient had a known existing IVC filter. There was flow through the filter noted indicating that the filter itself was not significantly thrombosed. At this time, the sheath was upsized to an 8-Cameroonian sheath. An intravascular ultrasound was performed. This showed again chronic thrombus throughout the iliac system as well as evidence of fresh thrombus in the femoral system. Multiple attempts were made at this point to upsize to a larger sheath, so that thrombectomy could be performed. However, the patient's veins were not of adequate size for this size sheath. Therefore, since the thrombus was thought to be primarily chronic within the iliac vein, the sheath was then pulled On anticoagulant: eliquis # PAD CTA abd/pel 06/16/22 Occlusion of the left superficial femoral artery and left proximal and mid popliteal artery, with reconstitution of flow in the distal popliteal artery. Diminished caliber of the left anterior tibial artery with distal occlusion. Additional vascular findings in the body of report # pneumonia On antibiotics: Unasyn Azithromycin # tobacco Recently quit # Anemia, melena EGD 06/21/22 [place] Grade D esophagitis Large, 1.5cm duodenal bulb ulcer without high risk stigmata Recommendations: - Would continue with IV PPI BID for now - Ok to resume anticoagulation and we can monitor closely for signs of overt GIB - Ok for clear liquid diet and then advance as tolerated - Would recommend transfusing 1U PRBC today given soft BPs during procedure today (pre-procedural Hbg of 6.9) and anticipation of restarting anticoagulation - Please check for Hpylori serology and treat empirically if positive # Acute sigmoid diverticulitis per CT abd/pel w IV con 06/20/22 # L hip deep tissue pressure injury See wound care eval and rec 06/21/22 Discharge planning: PT eval on 06/21/22 rec subacute/SNF OT eval on 06/22/22 rec subacute/SNF (more content not included)... [facility] 06-25-2022 Note HNO ID: [id number] Author: Heron Ayers MD Service: Hospital Medicine Author Type: Physician Type: Progress Notes Filed: 06/25/2022 4:25 PM Note Text: DEPARTMENT OF HOSPITAL MEDICINE PROGRESS NOTE SERVICE DATE: 06/25/2022 SERVICE TIME: 12:03 PM Hospital Medicine/Primary Attending: Heron Ayers MD Subjective INTERVAL HPI: 81-year-old female admitted to the hospital with a community-acquired lobar pneumonia. Patient remains short of breath with minimal exertion. She reports that her leg still hurts but feels better than when she first was admitted. MEDICATIONS: Reviewed Objective PHYSICAL EXAM: BP 128/68 Pulse 77 Temp (Src) 97.9 (Oral) Resp 20 Ht 5' 4" (1.63m) Wt 156 lb 15.5 oz (71.2kg) SpO2 93% BMI 26.93 kg/(m2). O2 Therapy: Nasal Cannula, Liters: 1 Physical Exam Performed LUNGS: Positive findings: diminished breath sounds R mid anterior, R lower posterior, L mid anterior, and L lower anterior CARDIAC: Normal S1 and S2; no rubs, murmurs, or gallops Lines, Drains, and Airways Line Duration Peripheral 06/22/22 1024 Right Forearm 22 Gauge 3 days Peripheral 06/23/22 0600 Left Forearm 20 Gauge 2 days Drain Duration External Collection Device 06/16/22 2331 8 days Reviewed lines and needs to be continued: REASONS: Intravenous antibiotics DATA: Diagnostic tests reviewed for today's visit: Most recent labs Assessment/Plan Principal Problem: Ischemic leg POA: Unknown Assessment AND Plan: Continue anticoagulation Active Problems: Bilateral pneumonia POA: Unknown Assessment AND Plan: Continue IV antibiotics, aggressive pulm toiletry, wean oxygen when able COVID-19 POA: Unknown Assessment AND Plan: Likely the cause of her ischemic leg Resolved Problems: * No resolved hospital problems. * Medication and Non-Pharmacologic VTE Prophylaxis/Anticoagulants Anticoagulant AND Antiplatelet Medications (From admission, onward) Start Dose Route Frequency Last Action Ordered Stop 07/02/22 0900 apixaban 5 mg tab(s) (ELIQUIS) (apixaban tab(s) (ELIQUIS)) See Hyperspace for full Linked Orders Report. 5 mg ORAL 2 TIMES DAILY Ordered 06/24/22 1813 -- 06/25/22 0900 apixaban 10 mg tab(s) (ELIQUIS) (apixaban tab(s) (ELIQUIS)) See Hyperspace for full Linked Orders Report. 10 mg ORAL 2 TIMES DAILY Given, 06/25 0841 06/24/22 1813 07/02/22 0859 06/16/22 194 vte current anticoag therapy ([place], [place]) 06/16/221944 activity - mobilize patient ([place]) VTE Prophylaxis: VTE prophylaxis appropriate Disposition: Home Plan of care discussed with: Provider, RN, Patient SIGNATURE: Heron Ayers MD PATIENT NAME: Mel Castillo DATE: June 25, 2022 TIME: 12:03 PM etx [id number] [facility] 06-25-2022 Note HNO ID: [id number] Author: Kassidy Mejia RN Service: Care Management Author Type: Registered Nurse Type: Care Mgt Progress Note Filed: 06/25/2022 11:37 AM Note Text: CARE MANAGEMENT PROGRESS NOTE SERVICE DATE: 06/25/2022 SERVICE TIME: 11:30 AM LOS: 9 days IMM Follow Up Copy Given: Yes Copy given to:: Patient Method: In Person (verbal) Chart reviewed. Plan for pt to return home with her son and his at d/c. [facility] is able to accept for hhc. Await ambulatory Pulse ox for possible home O2 need. Family to transport. CM to follow. SIGNATURE: Kassidy Mejia RN PATIENT NAME: Mel Castillo DATE: June 25, 2022 TIME: 11:30 AM PAGER/CONTACT #: [phone] [facility] 06-24-2022 Note HNO ID: [id number] Author: Richie Yi MD Service: General Internal Medicine Author Type: Physician Type: Progress Notes Filed: 06/24/2022 6:34 PM Note Text: DEPARTMENT OF HOSPITAL MEDICINE PROGRESS NOTE SERVICE DATE: 06/23/2022 SERVICE TIME: 7:19 PM Hospital Medicine/Primary Attending: Richie Yi MD NIGHT AND WEEKEND COVERAGE: [place] COVERAGE: After 7pm, please call cross cover pager #[phone] Subjective Patient was seen today. She is still short of breath, but overall better, other review of systes is unremarkable. MEDICATIONS: Reviewed Objective PHYSICAL EXAM: BP 127/60 Pulse 92 Temp (Src) 97.7 (Axillary) Resp 20 Ht 5' 4" (1.63m) Wt 156 lb 15.5 oz (71.2kg) SpO2 97% BMI 26.93 kg/(m2). O2 Therapy: Nasal Cannula, Liters: 1 Physical Exam Performed SKIN: Skin color, texture, turgor normal. No rashes or lesions. LUNGS: Bilateral expiratory wheezes CARDIAC: Normal S1 and S2; no rubs, murmurs, or gallops ABDOMEN: Abdomen soft, non-tender, BS normal, No masses or organomegaly EXTREMITIES: Extremities normal, no deformities, edema, clubbing or skin discoloration. Good capillary refill., No ulcers NEURO: Negative Lines, Drains, and Airways Line Duration Peripheral 06/22/22 1024 Right Forearm 22 Gauge 2 days Peripheral 06/23/22 0600 Left Forearm 20 Gauge 1 day Drain Duration External Collection Device 11/30/22 2331 7 days Reviewed lines and needs to be continued: REASONS: Intravenous fluids and Intravenous antibiotics DATA: Diagnostic tests reviewed for today's visit: Most recent labs and imaging results. Most recent labs Most recent imaging Assessment/Plan Community acquired lobar pneumonia - Start Unasyn and Azithromycin total 5 days - Follow sputum culture - Chest X Ray reviewed - Target SO2 92% or more, down to 1L NC but still dyspneic 2. Acute left lower extremity ischemia secondary to thrombosis versus embolism of the right femoral artery. - Switch heparin gtt to eliquis, stop Unfractionated for at least 6 hours prior to starting the eliquis. Will need AC for 6 months (Provoked by COVID infection) 3. 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 Attempted endovascular thrombolysis but this was unsuccessful. Switch to DOAC when Hb continue to be stable 4.. Paroxysmal atrial fibrillation with controlled ventricular response. 5. Recent COVID-19 infection. May have predisposed to thrombosis. 6. Acute blood loss anemia, stable Hb 7. Acute upper GI bleeding in the setting of anticoagulation with heparin and prior excessive NSAID use. Patient having black tarry stools and drop in hemoglobin. Hold heparin by weight for now. Started on PPIs. Consulted gastroenterology and yesterday patient underwent EGD that showed large duodenal ulcer and severe esophagitis. Biopsies taken for H. pylori. Resume anticoagulation today. Continue to monitor hemoglobin 8. Left femoral artery thrombosis. Medication and Non-Pharmacologic VTE Prophylaxis/Anticoagulants Anticoagulant AND Antiplatelet Medications (From admission, onward) Start Dose Route Frequency Last Action Ordered Stop 07/02/22 0900 apixaban 5 mg tab(s) (ELIQUIS) (apixaban tab(s) (ELIQUIS)) See Hyperspace for full Linked Orders Report. 5 mg ORAL 2 TIMES DAILY Ordered 06/24/22 181 -- 06/25/22 0900 apixaban 10 mg tab(s) (ELIQUIS) (apixaban tab(s) (ELIQUIS)) See Hyperspace for full Linked Orders Report. 10 mg ORAL 2 TIMES DAILY Ordered 06/24/22 18107/02/22 0859 06/24/22 1730 heparin iv infusion 25,000 units in NaCl 0.45% 250 mL STANDARD NOMOGRAM (Heparin Infusion + Bolus for Subtherapeutic PTTAC) 0-30 mL/hr See Hyperspace for full Linked Orders Report. 0-3,000 Units/hr INTRAVENOUS CONTINUOUS Rate Verify, 06/24 1730 06/24/22 1729 06/25/22 0300 06/16/221944 vte current anticoag therapy ([place]) 06/16/221944 activity - mobilize patient ([place], [place]) VTE Prophylaxis: VTE prophylaxis appropriate Disposition: To be determined Plan of care discussed with: Provider, RN, Patient SIGNATURE: Richie Yi MD PATIENT NAME: Mel Castillo DATE: June 23, 2022 TIME: 7:19 PM etx [id number] [facility] 06-24-2022 Note HNO ID: [id number] Author: SHAQUILLE Kaye Service: Care Management Author Type: Grinding Wheel Facer Type: Care Mgt Progress Note Filed: 06/24/2022 1:04 PM Note Text: CARE MANAGEMENT PROGRESS NOTE SERVICE DATE: 06/24/2022 SERVICE TIME: 1:02 PM LOS: 8 days Needs Prior to Discharge: To Be Determined;Home Care Order;Oxygen Set-up Chart reviewed. KEESHA spoke with attending, pt is not ready for discharge yet. Pt now declining SNF. [facility] accepted pt for HHC. Pt will need HHC orders. Pt may also need home O2, pt will need ambulatory pulse ox and script. Family may be able to transport. SIGNATURE: SHAQUILLE Kaye PATIENT NAME: Mel Castillo DATE: June 24, 2022 TIME: 1:02 PM PAGER/CONTACT #: [phone] [facility] 06-23-2022 Note HNO ID: [id number] Author: Richie Yi MD Service: General Internal Medicine Author Type: Physician Type: Progress Notes Filed: 06/23/2022 7:28 PM Note Text: DEPARTMENT OF HOSPITAL MEDICINE PROGRESS NOTE SERVICE DATE: 06/23/2022 SERVICE TIME: 7:19 PM Hospital Medicine/Primary Attending: Richie Yi MD NIGHT AND WEEKEND COVERAGE: [place] COVERAGE: After 7pm, please call cross cover pager #[phone] Subjective Patient was seen today. She is still short of breath, stated that she started to smoke more after her a year ago. MEDICATIONS: Reviewed Objective PHYSICAL EXAM: BP 117/51 Pulse 80 Temp (Src) 97.3 (Oral) Resp 18 Ht 5' 4" (1.63m) Wt 156 lb 15.5 oz (71.2kg) SpO2 100% BMI 26.93 kg/(m2). O2 Therapy: Nasal Cannula, Liters: 2 Physical Exam Performed SKIN: Skin color, texture, turgor normal. No rashes or lesions. LUNGS: Bilateral expiratory wheezes CARDIAC: Normal S1 and S2; no rubs, murmurs, or gallops ABDOMEN: Abdomen soft, non-tender, BS normal, No masses or organomegaly EXTREMITIES: Extremities normal, no deformities, edema, clubbing or skin discoloration. Good capillary refill., No ulcers NEURO: Negative Lines, Drains, and Airways Line Duration Peripheral 06/22/22 1024 Right Forearm 22 Gauge 1 day Peripheral 06/23/22 0600 Left Forearm 20 Gauge <1 day Drain Duration External Collection Device 06/16/22 2331 6 days Reviewed lines and needs to be continued: REASONS: Intravenous fluids and Intravenous antibiotics DATA: Diagnostic tests reviewed for today's visit: Most recent labs and imaging results. Most recent labs Most recent imaging Assessment/Plan 1. Acute left lower extremity ischemia secondary to thrombosis versus embolism of the right femoral artery. 2. 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 Attempted endovascular thrombolysis but this was unsuccessful. Switch to DOAC when Hb continue to be stable 3. Paroxysmal atrial fibrillation with controlled ventricular response. 4. Recent COVID-19 infection. May have predisposed to thrombosis. 5. Acute blood loss anemia, stable Hb 6. Acute upper GI bleeding in the setting of anticoagulation with heparin and prior excessive NSAID use. Patient having black tarry stools and drop in hemoglobin. Hold heparin by weight for now. Started on PPIs. Consulted gastroenterology and yesterday patient underwent EGD that showed large duodenal ulcer and severe esophagitis. Biopsies taken for H. pylori. Resume anticoagulation today. Continue to monitor hemoglobin 7. Left femoral artery thrombosis. 8. COPD exacerbation, start mucolytic, IV steroids, inhalers. Medication and Non-Pharmacologic VTE Prophylaxis/Anticoagulants Anticoagulant AND Antiplatelet Medications (From admission, onward) Start Dose Route Frequency Last Action Ordered Stop 06/22/22 1030 heparin iv infusion 25,000 units in NaCl 0.45% 250 mL STANDARD NOMOGRAM (Heparin Infusion + Bolus for Subtherapeutic PTTAC) 0-30 mL/hr See Hyperspace for full Linked Orders Report. 0-3,000 Units/hr INTRAVENOUS CONTINUOUS Rate Verify, 06/23 1617 06/22/22 1028 -- 06/16/221944 vte current anticoag therapy ([place]) 06/16/221944 activity - mobilize patient ([place], [place]) VTE Prophylaxis: VTE prophylaxis appropriate Disposition: To be determined Plan of care discussed with: Provider, RN, Patient SIGNATURE: Richie Yi MD PATIENT NAME: Mel Csatillo DATE: June 23, 2022 TIME: 7:19 PM etx [id number] [facility] 06-23-2022 Note HNO ID: [id number] Author: Kassidy Mejia RN Service: Care Management Author Type: Registered Nurse Type: Care Mgt Progress Note Filed: 06/23/2022 4:00 PM Note Text: CARE MANAGEMENT PROGRESS NOTE SERVICE DATE: 06/23/2022 SERVICE TIME: 3:55 PM LOS: 7 days Spoke with pt at the bedside. Discussed SNF placement. Auth obtained for [facility]- pt would be responsible for copay 50% of cost per day for days 1-100. Pt refusing SNF at this time. Pt would like to d/c home with her son and dtr-in-law to ([address] [place] [address]). [facility] would [facility] to [facility]- Referrals sent. Pt may need home O2- await ambulatory pulse ox. Family likely able to transport at d/c. CM to follow. SIGNATURE: Kassidy Mejia RN PATIENT NAME: Mel Castillo DATE: June 23, 2022 TIME: 3:53 PM PAGER/CONTACT #: [phone] [facility] 06-22-2022 Note HNO ID: [id number] Author: Dwayne Zaidi MD Service: Hospital Medicine Author Type: Physician Type: Progress Notes Filed: 06/22/2022 6:47 PM Note Text: DEPARTMENT OF HOSPITAL MEDICINE PROGRESS NOTE SERVICE DATE: 06/22/2022 SERVICE TIME: 6:42 PM Hospital Medicine/Primary Attending: Dwayne Zaidi MD NIGHT AND WEEKEND COVERAGE: After 7pm please page [phone] CHIEF COMPLAINT: Follow-up for acute left lower extremity DVT and upper GI bleeding SUBJECTIVE: 81-year-old female with a history of COPD. Admitted to the hospital on account of severe left lower extremity pain. Diagnosed with a phlegmasia cerulea dolens secondary to proximal DVT involving the left femoral vein down to the popliteal vein. 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 Was started on heparin by weight. Few days later developed passage of black tarry stools and acute blood loss anemia. Underwent EGD yesterday that showed large duodenal ulcer and severe esophagitis. Patient has been on PPIs and started on Carafate. Was transfused with 1 unit of packed red blood cells with good effect and monitoring of hemoglobin continues. Resumed heparin by weight today cautiously and will continue to monitor for any bleeding at least for the next 48 hours and if no signs or symptoms of GI bleeding can start on full anticoagulation with Eliquis. OBJECTIVE: PHYSICAL EXAM: BP 95/64 Pulse 90 Temp (Src) 97.5 (Oral) Resp 20 Ht 5' 4" (1.63m) Wt 156 lb 15.5 oz (71.2kg) SpO2 95% BMI 26.93 kg/(m2). O2 Therapy: Nasal Cannula, Liters: 2 Constitutional - Vitals as above, not in acute distress Resp - Clear to auscultate both sides, no wheezes, crackles or rales, no labored breathing CVS- RRR. No murmur, gallop or rub, pulse 2+ GI - NTND, bowel sounds normally heard, no mass palpable SIDE STITCHER- cranial nerves 2 to 12 grossly intact, Psych- A ANDO x 3 left lower extremity compression, mood chavo extremities-left lower extremity in compression bandage Skin- Normal tugor, no ulcers or rashes MEDICATIONS: Current Facility-Administered Medications Medication Dose Route Frequency sodium chloride 0.9 % (flush) 3-5 mL (BD POSIFLUSH) 3-5 mL INTRAVENOUS q 12 H HYDROcodone 5 mg - acetaminophen 325 mg tablet (NORCO) 1-2 tablet ORAL q 6 H PRN acetaminophen 650 mg tab(s) (TYLENOL) 650 mg ORAL q 8 H metoprolol tartrate (short acting) 25 mg tab(s) (LOPRESSOR) 25 mg ORAL q 12 H NaCl 0.9% iv flush bag 20 mL INTRAVENOUS PRN HYDROmorphone (PF) 0.5 mg injection (DILAUDID) 0.5 mg INTRAVENOUS q 3 H PRN pantoprazole 40 mg injection (PROTONIX) 40 mg INTRAVENOUS BID AC (0600/1599) ascorbic acid (vitamin C) 500 mg tab(s) (VITAMIN C) 500 mg ORAL TID zinc oxide 20 % TOPICAL PRN lactobacillus rhamnosus 10 billion cell (CULTURELLE) capsule 1 capsule ORAL DAILY zinc oxide 20 % TOPICAL BID sucralfate 1 g tab(s) (CARAFATE) 1 g ORAL QID heparin iv infusion 25,000 units in NaCl 0.45% 250 mL STANDARD NOMOGRAM 0-3,000 Units/hr INTRAVENOUS CONTINUOUS And heparin RATE CHANGE bolus 1,000-10,000 Units for subtherapeutic PTTAC results 1,000-10,000 Units INTRAVENOUS PRN [START ON 06/24/2022] pantoprazole DR 40 mg tab(s) (PROTONIX) 40 mg ORAL BID AC () [START ON 06/23/2022] amoxicillin-clavulanic acid 875 mg tab(s) (AUGMENTIN) 875 mg ORAL q 12 H DATA: Diagnostic tests reviewed for today's visit: Lab data: CBC: Recent Labs 06/22/22 0609 06/21/22 0554 06/20/22 1903 06/20/22 0552 06/19/22 2033 06/19/22 0513 06/18/22 0416 06/17/22 0510 06/16/22 0826 06/16/22 0341 WBC 5.82 -- -- 9.90 -- 8.55 8.77 8.61 10.43 15.82* HB 8.4* 6.9* 7.0* 7.8* 7.6* 7.6* 8.5* 8.5* 9.8* 11.4* HCT 25.1* -- -- 23.9* -- 24.0* 26.8* 26.6* 30.1* 35.3* PLT 209 -- -- 233 -- 219 234 223 277 373 MCV 93.3 -- -- 94.1 -- 94.5 95.0 94.0 94.7 93.6 RDWCV 16.2* -- -- 15.9* -- 15.6* 15.6* 15.5* 15.5* 15.6* NEUTP 56.9 -- -- -- -- -- -- -- -- 76.0 ABSNEUT 3.31 -- -- -- -- -- -- -- -- 12.02* LYMPHP 23.7 -- -- -- -- -- -- -- -- 8.0 MONOP 8.6 -- -- -- -- -- -- -- -- 11.0 COAG: Recent Labs 06/22/22 1145 06/19/22 1355 06/19/22 0513 06/18/22 2140 06/18/22 1305 06/18/22 0416 06/17/22 2136 06/17/22 1337 06/16/22 0951 06/16/22 0304 APTT 25.6 46.9* 83.8* 37.2* 58.8* 127.7* 48.4* 29.4 < > 21.7* INR <0.9* -- -- -- -- -- -- -- -- 1.1 < > = values in this interval not displayed. BMP: Recent Labs 06/22/22 0606/20/22 0552 06/19/22 0513 06/18/226 06/17/22 0510 06/16/22 0341 GLUC 95 92 115* 112* 84 122* NA 136 136 133* 133* 137 139 K 4.7 4.7 4.4 4.4 4.3 4.4 CHLOR 105 106* 105 102 107* 104 CO2 21* 22 23 21* 21* 18* ANION 10 8* 5* 10 9 17 BUN 7 16 22* 25* 27* 35* CREAT 0.88 0.84 0.94 1.17* 0.99* 1.14* CHEM: Recent Labs 06/22/22 0609 06/20/22 0552 06/19/22 0513 06/18/22 0416 06/17/22 0510 06/16/22 0341 ALB 2.4* -- -- -- -- 3.2* TPROT 5.3* -- (more content not included)... [facility] 06-22-2022 Note HNO ID: [id number] Author: Kassidy Mejia RN Service: Care Management Author Type: Registered Nurse Type: Care Mgt Progress Note Filed: 06/22/2022 10:15 AM Note Text: CARE MANAGEMENT PROGRESS NOTE SERVICE DATE: 06/22/2022 SERVICE TIME: 10:15 AM LOS: 6 days IMM Follow Up Copy Given: Yes Copy given to:: Patient Method: In Person (verbal) [facility] is able to accept pt. Precert tasked. Pt will need cot for transport. CM to follow. SIGNATURE: Kassidy Mejia RN PATIENT NAME: Mel Castillo DATE: June 22, 2022 TIME: 10:14 AM PAGER/CONTACT #: [phone] [facility] 06-21-2022 Note HNO ID: [id number] Author: Dwayne Zaidi MD Service: Hospital Medicine Author Type: Physician Type: Progress Notes Filed: 06/21/2022 4:10 PM Note Text: DEPARTMENT OF HOSPITAL MEDICINE PROGRESS NOTE SERVICE DATE: 06/21/2022 SERVICE TIME: 4:04 PM Hospital Medicine/Primary Attending: Dwayne Zaidi MD NIGHT AND WEEKEND COVERAGE: After 7pm please page [phone] CHIEF COMPLAINT: Follow-up for acute left lower extremity DVT. SUBJECTIVE: Pt seen and examined. Just returned from EGD. Asking for food. OBJECTIVE: PHYSICAL EXAM: BP 123/53 Pulse 77 Temp (Src) 97.7 (Oral) Resp 18 Ht 5' 4" (1.63m) Wt 156 lb 15.5 oz (71.2kg) SpO2 97% BMI 26.93 kg/(m2). O2 Therapy: Nasal Cannula, Liters: 2 Constitutional - Vitals as above, not in acute distress Resp - Clear to auscultate both sides, no wheezes, crackles or rales, no labored breathing CVS- RRR. No murmur, gallop or rub, pulse 2+ GI - NTND, bowel sounds normally heard, no mass palpable SIDE STITCHER- cranial nerves 2 to 12 grossly intact, Psych- A ANDO x 3 left lower extremity compression, mood chavo extremities-left lower extremity in compression bandage Skin- Normal tugor, no ulcers or rashes MEDICATIONS: Current Facility-Administered Medications Medication Dose Route Frequency sodium chloride 0.9 % (flush) 3-5 mL (BD POSIFLUSH) 3-5 mL INTRAVENOUS q 12 H HYDROcodone 5 mg - acetaminophen 325 mg tablet (NORCO) 1-2 tablet ORAL q 6 H PRN acetaminophen 650 mg tab(s) (TYLENOL) 650 mg ORAL q 8 H perflutren lipid microspheres 1.1 mg/mL 1.3 mL injection (DEFINITY) 1.3 mL INTRAVENOUS DIRECTED PRN metoprolol tartrate (short acting) 25 mg tab(s) (LOPRESSOR) 25 mg ORAL q 12 H NaCl 0.9% iv flush bag 20 mL INTRAVENOUS PRN HYDROmorphone (PF) 0.5 mg injection (DILAUDID) 0.5 mg INTRAVENOUS q 3 H PRN pantoprazole 40 mg injection (PROTONIX) 40 mg INTRAVENOUS BID AC (0600/1600) ascorbic acid (vitamin C) 500 mg tab(s) (VITAMIN C) 500 mg ORAL TID zinc oxide 20 % TOPICAL PRN lactobacillus rhamnosus 10 billion cell (CULTURELLE) capsule 1 capsule ORAL DAILY piperacillin-tazobactam iv piggyback 3.375 g in dextrose (iso-osmotic) 50 mL (ZOSYN) 3.375 g INTRAVENOUS q 6 H zinc oxide 20 % TOPICAL BID sucralfate 1 g tab(s) (CARAFATE) 1 g ORAL QID DATA: Diagnostic tests reviewed for today's visit: Lab data: CBC: Recent Labs 06/21/22 0554 06/20/22 1903 06/20/22 0552 06/19/22 2033 06/19/22 0513 06/18/22 0416 06/17/22 0510 06/16/22 0826 06/16/22 0341 WBC -- -- 9.90 -- 8.55 8.77 8.61 10.43 15.82* HB 6.9* 7.0* 7.8* 7.6* 7.6* 8.5* 8.5* 9.8* 11.4* HCT -- -- 23.9* -- 24.0* 26.8* 26.6* 30.1* 35.3* PLT -- -- 233 -- 219 234 223 277 373 MCV -- -- 94.1 -- 94.5 95.0 94.0 94.7 93.6 RDWCV -- -- 15.9* -- 15.6* 15.6* 15.5* 15.5* 15.6* NEUTP -- -- -- -- -- -- -- -- 76.0 ABSNEUT -- -- -- -- -- -- -- -- 12.02* LYMPHP -- -- -- -- -- -- -- -- 8.0 MONOP -- -- -- -- -- -- -- -- 11.0 COAG: Recent Labs 06/19/22 1355 06/19/22 0513 06/18/22 2140 06/18/22 1305 06/18/22 0416 06/17/22 2136 06/17/22 1337 06/17/22 1029 06/16/22 0951 06/16/22 0304 APTT 46.9* 83.8* 37.2* 58.8* 127.7* 48.4* 29.4 125.1* < > 21.7* INR -- -- -- -- -- -- -- -- -- 1.1 < > = values in this interval not displayed. BMP: Recent Labs 06/20/22 0552 06/19/22 0513 06/18/22 0416 06/17/22 0510 06/16/22 0341 GLUC 92 115* 112* 84 122* NA 136 133* 133* 137 139 K 4.7 4.4 4.4 4.3 4.4 CHLOR 106* 105 102 107* 104 CO2 22 23 21* 21* 18* ANION 8* 5* 10 9 17 BUN 16 22* 25* 27* 35* CREAT 0.84 0.94 1.17* 0.99* 1.14* CHEM: Recent Labs 06/20/22 0552 06/19/22 0513 06/18/22 0416 06/17/22 0510 06/16/22 0341 ALB -- -- -- -- 3.2* TPROT -- -- -- -- 6.6 CA 8.5 8.1* 8.0* 7.9* 9.1 MG -- 1.9 2.1 2.1 2.4* HEPATIC: Recent Labs 06/16/22340 ALKPHOS 111 ALT 20 AST 13 TBILI 0.3 URINALYSIS:No results for input(s): PH, SPGR, UGLUC, UBILI, UKET, UHB, UPROT, UROBIL, UWBC, SSA in the last 168 hours. 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 Acute left lower extremity ischemia secondary to thrombosis versus embolism of the right femoral artery. Vascular surgery on consult. 2. 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 Attempted endovascular thrombolysis but this was unsuccessful. Overall improving with heparin by weight. Has (more content not included)... [facility] 06-21-2022 Note HNO ID: [id number] Author: Kassidy Mejia RN Service: Care Management Author Type: Registered Nurse Type: Care Mgt Progress Note Filed: 06/21/2022 3:44 PM Note Text: CARE MANAGEMENT PROGRESS NOTE SERVICE DATE: 06/21/2022 SERVICE TIME: 3:41 PM LOS: 5 days Spoke with pt at the bedside. Pt states that she lives at home alone. PT/OT rec SNF. Pt would like [facility]- referral sent. Await acceptance. Pt will need precert when medically stable. Pt will need cot for transport. Cm to follow. SIGNATURE: Kassidy Mejia RN PATIENT NAME: Mel Castillo DATE: June 21, 2022 TIME: 3:41 PM PAGER/CONTACT #: [phone] [facility] 06-21-2022 Note HNO ID: [id number] Author: Primo Dodd APRN.SHAMIKA Service: Gastroenterology Author Type: Nurse Practitioner Type: Progress Notes Filed: 06/21/2022 3:52 PM Note Text: SERVICE CONSULT PROGRESS NOTE SERVICE DATE: 06/21/2022 SERVICE TIME: 927 Subjective INTERVAL HPI: GI consulted for GI bleed. The patient developed melena after starting anticoagulation therapy for acute left lower extremity thrombus. She had a BM last night. She is unsure of the color. Her hemoglobin is 6.9 this morning. She reports c/o lower abdominal cramping that improves after a bowel movement. CT scan shows acute sigmoid diverticulitis. No evidence of perforation or diverticular abscess. No c/o nausea or vomiting. No c/o hematemesis. No c/o heartburn or dysphagia. Current Facility-Administered Medications Medication Dose Route Frequency sodium chloride 0.9 % (flush) 3-5 mL (BD POSIFLUSH) 3-5 mL INTRAVENOUS q 12 H HYDROcodone 5 mg - acetaminophen 325 mg tablet (NORCO) 1-2 tablet ORAL q 6 H PRN acetaminophen 650 mg tab(s) (TYLENOL) 650 mg ORAL q 8 H perflutren lipid microspheres 1.1 mg/mL 1.3 mL injection (DEFINITY) 1.3 mL INTRAVENOUS DIRECTED PRN metoprolol tartrate (short acting) 25 mg tab(s) (LOPRESSOR) 25 mg ORAL q 12 H NaCl 0.9% iv flush bag 20 mL INTRAVENOUS PRN HYDROmorphone (PF) 0.5 mg injection (DILAUDID) 0.5 mg INTRAVENOUS q 3 H PRN pantoprazole 40 mg injection (PROTONIX) 40 mg INTRAVENOUS BID AC (0600/1600) ascorbic acid (vitamin C) 500 mg tab(s) (VITAMIN C) 500 mg ORAL TID zinc oxide 20 % TOPICAL PRN lactobacillus rhamnosus 10 billion cell (CULTURELLE) capsule 1 capsule ORAL DAILY diphenoxylate-atropine 2.5-0.025 mg 2 tablet (LOMOTIL) 2 tablet ORAL TID dextrose 5% in NaCl 0.9% with KCl 20 mEq/L iv infusion 75 mL/hr INTRAVENOUS CONTINUOUS iv contrast (radiology procedure) INTRAVENOUS DIRECTED PRN piperacillin-tazobactam iv piggyback 3.375 g in dextrose (iso-osmotic) 50 mL (ZOSYN) 3.375 g INTRAVENOUS q 6 H Objective PHYSICAL EXAM: Physical Exam Performed: Physical Exam Vitals reviewed. Constitutional: Appearance: Normal appearance. HENT: Head: Normocephalic and atraumatic. Mouth/Throat: Mouth: Mucous membranes are moist. Eyes: General: No scleral icterus. Extraocular Movements: Extraocular movements intact. Conjunctiva/sclera: Conjunctivae normal. Cardiovascular: Rate and Rhythm: Normal rate and regular rhythm. Pulses: Normal pulses. Heart sounds: Normal heart sounds. Pulmonary: Effort: Pulmonary effort is normal. Breath sounds: Normal breath sounds. Abdominal: General: Bowel sounds are normal. There is no distension. Palpations: Abdomen is soft. There is no mass. Tenderness: There is abdominal tenderness. There is no guarding or rebound. Musculoskeletal: Cervical back: Neck supple. Left lower leg: Edema present. Skin: General: Skin is warm and dry. Coloration: Skin is pale. Skin is not jaundiced. Neurological: General: No focal deficit present. Mental Status: She is alert and oriented to person, place, and time. Psychiatric: Mood and Affect: Mood normal. Behavior: Behavior normal. BP 123/66 Pulse 89 Temp (Src) 98.4 (Oral) Resp 18 Ht 5' 4" (1.63m) Wt 156 lb 15.5 oz (71.2kg) SpO2 95% BMI 26.93 kg/(m2). O2 Therapy: Nasal Cannula, Liters: 2 DATA: Diagnostic tests reviewed for today's visit: Most recent labs WBC (k/uL) Date Value 06/20/2022 9.90 RBC (m/uL) Date Value 06/20/2022 2.54 (L) Hemoglobin (g/dL) Date Value 06/21/2022 6.9 (L) Hematocrit (%) Date Value 06/20/2022 23.9 (L) MCV (fL) Date Value 06/20/2022 94.1 MCH (pg) Date Value 06/20/2022 30.7 MCHC (g/dL) Date Value 06/20/2022 32.6 RDW-CV (%) Date Value 06/20/2022 15.9 (H) Platelet Count (k/uL) Date Value 06/20/2022 233 MPV (fL) Date Value 06/20/2022 9.8 Glucose (mg/dL) Date Value 06/20/2022 92 BUN (mg/dL) Date Value 06/20/2022 16 Creatinine (mg/dL) Date Value 06/20/2022 0.84 Sodium (mmol/L) Date Value 06/20/2022 136 Potassium (mmol/L) Date Value 06/20/2022 4.7 Chloride (mmol/L) Date Value 06/20/2022 106 (H) CO2 (mmol/L) Date Value 06/20/2022 22 Protein, Total (g/dL) Date Value 06/16/2022 6.6 Albumin (g/dL) Date Value 06/16/2022 3.2 (L) Calcium, Total (mg/dL) Date Value 06/20/2022 8.5 Alkaline Phosphatase (U/L) Date Value 06/16/2022 111 Bilirubin, Total (mg/dL) Date Value 06/16/2022 0.3 AST (U/L) Date Value 06/16/2022 13 ALT (U/L) Date Value 06/16/2022 20 Cholesterol, Total (mg/dL) Date Value 06/18/2022 139 Triglyceride (mg/dL) Date Value 06/18/2022 93 Impression/Recommendations Acute GI bleed in the setting of anticoagulation therapy. Acute anemia. Lower extremity, left DVT Acute diverticulitis. Diarrhea on Lomotil. Last BM 06/20. GERD. Plan: The patient is NPO. Plan for endoscopy for evaluation given evidence (more content not included)... [facility] 06-20-2022 Note HNO ID: [id number] Author: Acacia Hardin DO Service: General Surgery Author Type: Resident Type: Plan of Care Filed: 06/20/2022 1:40 PM Note Text: Plan of Care Dr. 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 Spoke with Dr. Wilson, contract coordinator for Dr. Rodriguez, and she states these findings are chronic. In addition, patient's pain has improved and she has no rest pain. Recommend that if patient is in hospital for another couple of days, can obtain PVRs to obtain a baseline. However, if she were to go home, it is acceptable to have her follow up with vascular surgery as an outpatient. No acute intervention needed during this admission. BP 118/56 Pulse 92 Temp 36.3 ?C (97.3 ?F) (Oral) Resp 16 Ht 162.6 cm (5' 4") Wt 71.2 kg (156 lb 15.5 oz) SpO2 97% BMI 26.94 kg/m? Acacia Fuantonioata, 06/20/2022 1:36 PM [facility] 06-20-2022 Note HNO ID: [id number] Author: Dwayne Zaidi MD Service: Hospital Medicine Author Type: Physician Type: Progress Notes Filed: 06/20/2022 12:39 PM Note Text: DEPARTMENT OF HOSPITAL MEDICINE PROGRESS NOTE SERVICE DATE: 06/20/2022 SERVICE TIME: 12:35 PM Hospital Medicine/Primary Attending: Dwayne Zaidi MD NIGHT AND WEEKEND COVERAGE: After 7pm please page [phone] CHIEF COMPLAINT: Follow-up for acute left lower extremity edema complicated by phlegmasia cerulea dolens SUBJECTIVE: Pt seen and examined. Updated regarding plan of care. All questions answered and concerns addressed. Patient still having diarrheal stools that are black. OBJECTIVE: PHYSICAL EXAM: BP 118/56 Pulse 92 Temp (Src) 97.3 (Oral) Resp 16 Ht 5' 4" (1.63m) Wt 156 lb 15.5 oz (71.2kg) SpO2 97% BMI 26.93 kg/(m2). O2 Therapy: Nasal Cannula, Liters: 2 Constitutional - Vitals as above, not in acute distress Resp - Clear to auscultate both sides, no wheezes, crackles or rales, no labored breathing CVS- RRR. No murmur, gallop or rub, pulse 2+ GI - NTND, bowel sounds normally heard, no mass palpable SIDE STITCHER- cranial nerves 2 to 12 grossly intact, Psych- A ANDO x 3 left lower extremity compression, mood chavo extremities-left lower extremity in compression bandage Skin- Normal tugor, no ulcers or rashes MEDICATIONS: Current Facility-Administered Medications Medication Dose Route Frequency sodium chloride 0.9 % (flush) 3-5 mL (BD POSIFLUSH) 3-5 mL INTRAVENOUS q 12 H HYDROcodone 5 mg - acetaminophen 325 mg tablet (NORCO) 1-2 tablet ORAL q 6 H PRN acetaminophen 650 mg tab(s) (TYLENOL) 650 mg ORAL q 8 H perflutren lipid microspheres 1.1 mg/mL 1.3 mL injection (DEFINITY) 1.3 mL INTRAVENOUS DIRECTED PRN metoprolol tartrate (short acting) 25 mg tab(s) (LOPRESSOR) 25 mg ORAL q 12 H NaCl 0.9% iv flush bag 20 mL INTRAVENOUS PRN HYDROmorphone (PF) 0.5 mg injection (DILAUDID) 0.5 mg INTRAVENOUS q 3 H PRN pantoprazole 40 mg injection (PROTONIX) 40 mg INTRAVENOUS BID AC (0600/1600) ascorbic acid (vitamin C) 500 mg tab(s) (VITAMIN C) 500 mg ORAL TID levoFLOXacin 500 mg tab(s) (LEVAQUIN) 500 mg ORAL DAILY zinc oxide 20 % TOPICAL PRN lactobacillus rhamnosus 10 billion cell (CULTURELLE) capsule 1 capsule ORAL DAILY diphenoxylate-atropine 2.5-0.025 mg 2 tablet (LOMOTIL) 2 tablet ORAL TID DATA: Diagnostic tests reviewed for today's visit: Lab data: CBC: Recent Labs 06/20/22 0552 06/19/22 2033 06/19/22 0513 06/18/22 0416 06/17/22 0510 06/16/22 0826 06/16/22 0341 WBC 9.90 -- 8.55 8.77 8.61 10.43 15.82* HB 7.8* 7.6* 7.6* 8.5* 8.5* 9.8* 11.4* HCT 23.9* -- 24.0* 26.8* 26.6* 30.1* 35.3* PLT 233 -- 219 234 223 277 373 MCV 94.1 -- 94.5 95.0 94.0 94.7 93.6 RDWCV 15.9* -- 15.6* 15.6* 15.5* 15.5* 15.6* NEUTP -- -- -- -- -- -- 76.0 ABSNEUT -- -- -- -- -- -- 12.02* LYMPHP -- -- -- -- -- -- 8.0 MONOP -- -- -- -- -- -- 11.0 COAG: Recent Labs 06/19/22 1355 06/19/22 0513 06/18/22 2140 06/18/22 1305 06/18/22 0416 06/17/22 2136 06/17/22 1337 06/17/22 1029 06/16/22 0951 06/16/22 0304 APTT 46.9* 83.8* 37.2* 58.8* 127.7* 48.4* 29.4 125.1* < > 21.7* INR -- -- -- -- -- -- -- -- -- 1.1 < > = values in this interval not displayed. BMP: Recent Labs 06/20/22 0552 06/19/22 0513 06/18/22 0416 06/17/22 0510 06/16/22 0341 GLUC 92 115* 112* 84 122* NA 136 133* 133* 137 139 K 4.7 4.4 4.4 4.3 4.4 CHLOR 106* 105 102 107* 104 CO2 22 23 21* 21* 18* ANION 8* 5* 10 9 17 BUN 16 22* 25* 27* 35* CREAT 0.84 0.94 1.17* 0.99* 1.14* CHEM: Recent Labs 06/20/22 0552 06/19/22 0513 06/18/22 0416 06/17/22 0510 06/16/22 0341 ALB -- -- -- -- 3.2* TPROT -- -- -- -- 6.6 CA 8.5 8.1* 8.0* 7.9* 9.1 MG -- 1.9 2.1 2.1 2.4* HEPATIC: Recent Labs 06/16/22 034 ALKPHOS 111 ALT 20 AST 13 TBILI 0.3 URINALYSIS:No results for input(s): PH, SPGR, UGLUC, UBILI, UKET, UHB, UPROT, UROBIL, UWBC, SSA in the last 168 hours. 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 Acute left lower extremity ischemia secondary to thrombosis versus embolism of the right femoral artery. Vascular surgery on consult. 2. 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 Attempted endovascular thrombolysis but this was unsuccessful. Overall improving with heparin by weight. Has previous IVC tahmina (more content not included)... [facility] 06-19-2022 Note HNO ID: [id number] Author: Dwayne Zaidi MD Service: Hospital Medicine Author Type: Physician Type: Progress Notes Filed: 06/19/2022 4:33 PM Note Text: DEPARTMENT OF HOSPITAL MEDICINE PROGRESS NOTE SERVICE DATE: 06/19/2022 SERVICE TIME: 4:29 PM Hospital Medicine/Primary Attending: Dwayne Zaidi MD NIGHT AND WEEKEND COVERAGE: After 7pm please page [phone] CHIEF COMPLAINT: Follow-up for acute left lower extremity DVT SUBJECTIVE: Pt seen and examined. Nursing staff reports passage of black tarry stools. Patient having diarrhea as well. OBJECTIVE: PHYSICAL EXAM: BP 135/56 Pulse 82 Temp (Src) 97.2 (Oral) Resp 18 Ht 5' 4" (1.63m) Wt 156 lb 15.5 oz (71.2kg) SpO2 99% BMI 26.93 kg/(m2). O2 Therapy: Nasal Cannula, Liters: 2 Constitutional - Vitals as above, not in acute distress Resp - Clear to auscultate both sides, no wheezes, crackles or rales, no labored breathing CVS- RRR. No murmur, gallop or rub, pulse 2+ GI - NTND, bowel sounds normally heard, no mass palpable SIDE STITCHER- cranial nerves 2 to 12 grossly intact, Psych- A ANDO x 3 left lower extremity compression, mood chavo extremities-left lower extremity in compression bandage Skin- Normal tugor, no ulcers or rashes MEDICATIONS: Current Facility-Administered Medications Medication Dose Route Frequency sodium chloride 0.9 % (flush) 3-5 mL (BD POSIFLUSH) 3-5 mL INTRAVENOUS q 12 H HYDROcodone 5 mg - acetaminophen 325 mg tablet (NORCO) 1-2 tablet ORAL q 6 H PRN acetaminophen 650 mg tab(s) (TYLENOL) 650 mg ORAL q 8 H perflutren lipid microspheres 1.1 mg/mL 1.3 mL injection (DEFINITY) 1.3 mL INTRAVENOUS DIRECTED PRN metoprolol tartrate (short acting) 25 mg tab(s) (LOPRESSOR) 25 mg ORAL q 12 H NaCl 0.9% iv flush bag 20 mL INTRAVENOUS PRN HYDROmorphone (PF) 0.5 mg injection (DILAUDID) 0.5 mg INTRAVENOUS q 3 H PRN pantoprazole 40 mg injection (PROTONIX) 40 mg INTRAVENOUS BID AC (0600/1600) ascorbic acid (vitamin C) 500 mg tab(s) (VITAMIN C) 500 mg ORAL TID diphenoxylate-atropine 2.5-0.025 mg 1 tablet (LOMOTIL) 1 tablet ORAL QID PRN DATA: Diagnostic tests reviewed for today's visit: Lab data: CBC: Recent Labs 06/19/22 0513 06/18/22 0416 06/17/22 0510 06/16/22 0826 06/16/22 0341 WBC 8.55 8.77 8.61 10.43 15.82* HB 7.6* 8.5* 8.5* 9.8* 11.4* HCT 24.0* 26.8* 26.6* 30.1* 35.3* PLT 219 234 223 277 373 MCV 94.5 95.0 94.0 94.7 93.6 RDWCV 15.6* 15.6* 15.5* 15.5* 15.6* NEUTP -- -- -- -- 76.0 ABSNEUT -- -- -- -- 12.02* LYMPHP -- -- -- -- 8.0 MONOP -- -- -- -- 11.0 COAG: Recent Labs 06/19/22 1355 06/19/22 0513 06/18/22 2140 06/18/22 1305 06/18/22 0416 06/17/22 2136 06/17/22 1337 06/17/22 1029 06/16/22 0951 06/16/22 0304 APTT 46.9* 83.8* 37.2* 58.8* 127.7* 48.4* 29.4 125.1* < > 21.7* INR -- -- -- -- -- -- -- -- -- 1.1 < > = values in this interval not displayed. BMP: Recent Labs 06/19/22 0513 06/18/22 0416 06/17/22 0510 06/16/22 034 GLUC 115* 112* 84 122* NA 133* 133* 137 139 K 4.4 4.4 4.3 4.4 CHLOR 105 102 107* 104 CO2 23 21* 21* 18* ANION 5* 10 9 17 BUN 22* 25* 27* 35* CREAT 0.94 1.17* 0.99* 1.14* CHEM: Recent Labs 06/19/22 0513 06/18/22 0416 06/17/22 0510 06/16/22 034 ALB -- -- -- 3.2* TPROT -- -- -- 6.6 CA 8.1* 8.0* 7.9* 9.1 MG 1.9 2.1 2.1 2.4* HEPATIC: Recent Labs 06/16/22 034 ALKPHOS 111 ALT 20 AST 13 TBILI 0.3 URINALYSIS:No results for input(s): PH, SPGR, UGLUC, UBILI, UKET, UHB, UPROT, UROBIL, UWBC, SSA in the last 168 hours. 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 Acute left lower extremity ischemia secondary to thrombosis versus embolism of the right femoral artery. Vascular surgery on consult. 2. 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 Attempted endovascular thrombolysis but this was unsuccessful. Patient is on heparin by weight. We will continue. Vascular surgery following. Has previous IVC filter that was noted to be patent on venogram. 3. Paroxysmal atrial fibrillation with rapid ventricular response. Rate better controlled. 4. COVID-19 infection. May have predisposed to thrombosis. 5. Acute blood loss anemia. Noted downward trending hemoglobin over the last 4 days since admission. 6. Possible upper GI bleeding in the setting of anticoagulation with heparin. Patient having black tarry stools and andrew (more content not included)... [facility] 06-18-2022 Note HNO ID: [id number] Author: Emanuel Hull MD Service: General Surgery Author Type: Resident Type: Plan of Care Filed: 06/18/2022 5:39 PM Note Text: Vascular Surgery Plan of Care No other vascular surgical intervention needed. Anticoagulation to be managed by primary team. Should still wrap the leg from the toes to the hip to prevent swelling of the foot. We will sign off now. Please call with questions or concerns. Emanuel Hull M.D. General Surgery PGY-3 June 18, 2022 5:39 PM [facility] 06-18-2022 Note HNO ID: [id number] Author: Dwayne Zaidi MD Service: Hospital Medicine Author Type: Physician Type: Progress Notes Filed: 06/18/2022 5:37 PM Note Text: DEPARTMENT OF HOSPITAL MEDICINE PROGRESS NOTE SERVICE DATE: 06/18/2022 SERVICE TIME: 5:35 PM Hospital Medicine/Primary Attending: Dwayne Zaidi MD NIGHT AND WEEKEND COVERAGE: After 7pm please page [phone] CHIEF COMPLAINT: Follow-up for acute left lower extremity DVT and acute left lower extremity ischemia SUBJECTIVE: Pt seen and examined. Sleeping at this time. OBJECTIVE: PHYSICAL EXAM: BP 112/51 Pulse 77 Temp (Src) 98.2 (Oral) Resp 18 Ht 5' 4" (1.63m) Wt 156 lb 15.5 oz (71.2kg) SpO2 97% BMI 26.93 kg/(m2). O2 Therapy: Room Air Constitutional - Vitals as above, not in acute distress Resp -nonlabored breathing CVS- RRR. No murmur, gallop or rub, pulse 2+ GI - NTND, bowel sounds normally heard, no mass palpable SIDE STITCHER- cranial nerves 2 to 12 grossly intact, Psych- A ANDO x 3, mood normal Skin- Normal tugor, no ulcers or rashes MEDICATIONS: Current Facility-Administered Medications Medication Dose Route Frequency heparin iv infusion 25,000 units in NaCl 0.45% 250 mL STANDARD NOMOGRAM 0-3,000 Units/hr INTRAVENOUS CONTINUOUS And heparin RATE CHANGE bolus 1,000-10,000 Units for subtherapeutic PTTAC results 1,000-10,000 Units INTRAVENOUS PRN sodium chloride 0.9 % (flush) 3-5 mL (BD POSIFLUSH) 3-5 mL INTRAVENOUS q 12 H HYDROcodone 5 mg - acetaminophen 325 mg tablet (NORCO) 1-2 tablet ORAL q 6 H PRN acetaminophen 650 mg tab(s) (TYLENOL) 650 mg ORAL q 8 H perflutren lipid microspheres 1.1 mg/mL 1.3 mL injection (DEFINITY) 1.3 mL INTRAVENOUS DIRECTED PRN metoprolol tartrate (short acting) 25 mg tab(s) (LOPRESSOR) 25 mg ORAL q 12 H NaCl 0.9% iv flush bag 20 mL INTRAVENOUS PRN HYDROmorphone (PF) 0.5 mg injection (DILAUDID) 0.5 mg INTRAVENOUS q 3 H PRN piperacillin-tazobactam 4.5 g in D5W 100 mL Vial-Bag (ZOSYN) 4.5 g INTRAVENOUS q 8 H DATA: Diagnostic tests reviewed for today's visit: Lab data: CBC: Recent Labs 06/18/22 0416 06/17/22 0510 06/16/22 0826 06/16/22 0341 WBC 8.77 8.61 10.43 15.82* HB 8.5* 8.5* 9.8* 11.4* HCT 26.8* 26.6* 30.1* 35.3* PLT 234 223 277 373 MCV 95.0 94.0 94.7 93.6 RDWCV 15.6* 15.5* 15.5* 15.6* NEUTP -- -- -- 76.0 ABSNEUT -- -- -- 12.02* LYMPHP -- -- -- 8.0 MONOP -- -- -- 11.0 COAG: Recent Labs 06/18/22 1305 06/18/22 0416 06/17/22 2136 06/17/22 1337 06/17/22 1029 06/17/22 0739 06/17/22 0027 06/16/22 2056 06/16/22 0951 06/16/22 0304 APTT 58.8* 127.7* 48.4* 29.4 125.1* >139.0* 28.5 74.2* < > 21.7* INR -- -- -- -- -- -- -- -- -- 1.1 < > = values in this interval not displayed. BMP: Recent Labs 06/18/22 0416 06/17/22 0510 06/16/22 034 GLUC 112* 84 122* NA 133* 137 139 K 4.4 4.3 4.4 CHLOR 102 107* 104 CO2 21* 21* 18* ANION 10 9 17 BUN 25* 27* 35* CREAT 1.17* 0.99* 1.14* CHEM: Recent Labs 06/18/22 0416 06/17/22 0510 06/16/22 0341 ALB -- -- 3.2* TPROT -- -- 6.6 CA 8.0* 7.9* 9.1 MG 2.1 2.1 2.4* HEPATIC: Recent Labs 06/16/22 034 ALKPHOS 111 ALT 20 AST 13 TBILI 0.3 URINALYSIS:No results for input(s): PH, SPGR, UGLUC, UBILI, UKET, UHB, UPROT, UROBIL, UWBC, SSA in the last 168 hours. 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 Acute left lower extremity ischemia secondary to thrombosis versus embolism of the right femoral artery. Vascular surgery on consult. 2. 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 Attempted endovascular thrombolysis but this was unsuccessful. Patient is on heparin by weight. We will continue. Vascular surgery following. Has previous IVC filter that was noted to be patent on venogram. 3. Paroxysmal atrial fibrillation with rapid ventricular response. Rate better controlled. 4. COVID-19 infection. May have predisposed to thrombosis. VTE Prophylaxis: Patient is already anti-coagulated. Disposition: To be determined Plan of care discussed with: Care Management Medication and Non-Pharmacologic VTE Prophylaxis/Anticoagulants Anticoagulant AND Antiplatelet Medications (From admission, onward) Start Dose Route Frequency Last Action Ordered Stop 06/16/22 0300 heparin iv infusion 25,000 units in NaCl 0.45% 250 mL STANDARD NOMOGRAM (Heparin Infusion + Bolus for (more content not included)... [facility] 06-18-2022 Note HNO ID: [id number] Author: Kassidy Mejia RN Service: Care Management Author Type: Registered Nurse Type: Care Mgt Progress Note Filed: 06/18/2022 3:58 PM Note Text: CARE MANAGEMENT PROGRESS NOTE SERVICE DATE: 06/18/2022 SERVICE TIME: 3:47 PM LOS: 2 days Chart reviewed. Pt admitted with ischemic leg- noted to have bed bugs on admission. Attempted to call pts room to complete IA as pt is COVID +, no answer. left for pts POA friend Damaris to help with IA. Per notes await PT/OT evals- no currently order for therapy, notified. Cm to follow clinical progress. SIGNATURE: Kassidy Mejia RN PATIENT NAME: Mel Castillo DATE: June 18, 2022 TIME: 3:46 PM PAGER/CONTACT #: [phone] [facility] 06-17-2022 Note HNO ID: [id number] Author: Eliza Parikh RN Service: Nursing Author Type: Registered Nurse Type: Nursing Progress Note Filed: 06/17/2022 7:24 PM Note Text: Pt to 4200 via bed. Pt tolerated well. [facility] 06-17-2022 Note HNO ID: [id number] Author: Eliza Parikh RN Service: Nursing Author Type: Registered Nurse Type: Nursing Progress Note Filed: 06/17/2022 4:35 PM Note Text: Report to 4200 Jayne RN [facility] 06-17-2022 Note HNO ID: [id number] Author: Efrain Ivey ([employer]) Service: Pharmacy Author Type: Senior Net Developer Type: Plan of Care Filed: 06/17/2022 2:16 PM Note Text: PHARMACY MEDICATION REVIEW Patient Name: Mel Castillo : 1940 The following medications were updated within the MANAGER [employer]PER[employer] medication list: Medications ADDED to [employer] medication list amLODIPine (NORVASC) 10 mg tablet OTHER Yes Yes dexAMETHasone (DECADRON) 4 mg tablet OTHER Yes Yes lisinopril (ZESTRIL, PRINIVIL) 5 mg tablet OTHER Yes Yes RX filled via [employer] and verified with pt. herself Medications CHANGED on [employer] medication list na Medications REMOVED from [employer] medication list na Additional comments: I was able to talk with the pt. about her home medications. She states she takes the 3 RX medications recorded below. These 3 medications were added to her [employer]NAGER [employer]PER[employer] list. She has finished Paxlovid and a physician stopped Augmentin per pt. interview Required follow up for nursing. Medication history completed by Historian. No nursing follow up required. The below information represents the best possible medication history: Yes Medication history completed by: Senior Net Developer: Efrain Ivey ([employer]) Source of history: Patient: Reliability of source: Appears reliable, clearly identified: Medication name, Medication dose, Medication route, and Medication frequency and Pharmacy records: [facility] Medication nonadherence identified: No barriers noted Reconciliation completed: No, pharmacist not yet reviewed Patient interested in Bedside Delivery Services or using OP Pharmacy at discharge? No Preferred outpatient pharmacy: [id number] [place] [address] - [phone] [id number] Allergies: Percocet [Oxycodone* Itching Prior to Admission Medications Prescriptions Last Dose Informant Patient Reported? Taking? amLODIPine (NORVASC) 10 mg tablet OTHER Yes Yes Sig: Take 10 mg by mouth once daily. dexAMETHasone (DECADRON) 4 mg tablet OTHER Yes Yes Sig: take 2 tablets by mouth every 12 hours for 3 days then 1 tablet once daily for 2 days lisinopril (ZESTRIL, PRINIVIL) 5 mg tablet OTHER Yes Yes Sig: Take 5 mg by mouth once daily. Facility-Administered Medications: None Efrain Ivey (Animal Treatment Investigator) phone [phone] 06/17/2022 [facility] 06-17-2022 Note HNO ID: [id number] Author: Ladan Adame RN Service: Care Management Author Type: Registered Nurse Type: Care Mgt Progress Note Filed: 06/17/2022 12:38 PM Note Text: CARE MANAGEMENT PROGRESS NOTE SERVICE DATE: 06/17/2022 SERVICE TIME: 12:37 PM LOS: 1 day Needs Prior to Discharge: To Be Determined Epic notes reviewed. Patient in isolation for Covid. TC made to her friend/CHERYL Rowan. Left a VM. Awaiting a return call. CM to continue to follow. SIGNATURE: Ladan Adame RN PATIENT NAME: Mel Castillo DATE: June 17, 2022 TIME: 12:37 PM PAGER/CONTACT #: [phone] [facility] 06-17-2022 Note HNO ID: [id number] Author: Eliza Parikh RN Service: Nursing Author Type: Registered Nurse Type: Nursing Progress Note Filed: 06/17/2022 10:40 AM Note Text: Echo at bedside [facility] 06-16-2022 Note HNO ID: [id number] Author: Cirilo Alaniz APRN.CRNA Service: Anesthesiology Author Type: Nurse Information Security Risk Analyst Type: Anesthesia Procedure Notes Filed: 06/16/2022 5:04 PM Note Text: ANESTHESIOLOGY PROCEDURE NOTE Airway General Information Procedure Start Time/Medication Administration: 06/16/2022 4:29 PM Patient location during procedure: OR Timeout Performed Pre-procedure: timeout performed Consent Obtained: Yes Patient identity confirmed: arm band and patient Staffing REVENUE FIELD AUDITOR: Cirilo Alaniz APRN.REVENUE FIELD AUDITOR Indications and Patient Condition Indications for airway management: anesthesia Preoxygenated: yes anesthesia circuit Method: asleep Difficult Mask: No Final Airway Details Final airway type: endotracheal airway Final Endotracheal Airway: ETT Cuffed: yes Successful intubation technique: video laryngoscopy Devices used: Redd Endotracheal tube insertion site: oral Blade: Kit Blade size: #3 ETT size (mm): 7.0 Measured from: lips Measurement (cm): 21 Placement verified by: chest auscultation and capnometry Cormack-Lehane Classification: grade I - full view of glottis Number of attempts at approach: 1 Airway not difficult SIGNATURE: Cirilo Alaniz APRN.REVENUE FIELD AUDITOR PATIENT NAME: Mel Castillo DATE: June 16, 2022 TIME: 5:03 PM CSN: [id number] [facility] 06-16-2022 Note HNO ID: [id number] Author: Jean Pierre Gamboa RPh Service: Pharmacy Author Type: Pharmacist Type: Progress Notes Filed: 06/16/2022 11:35 AM Note Text: Pharmacy Consult Agreement: Renal Dose Adjustment Patient Name: Mel Castillo Service Date: 06/16/2022 Service Time: 11:33 AM The following changes have been made to the patient's medication therapy as part of the pharmacy consult agreement. Estimated CrCl: Estimated Creatinine Clearance: 37.2 mL/min (A) (based on SCr of 1.14 mg/dL (H)). Current Therapy: Piperacillin-Tazobactam 4.5 Gm in D5W 100 ml Every 6 Hours New Therapy: Piperacillin-Tazobactam 4.5 Gm in D5W 100 ml Every 8 Hours Thank you for allowing me to participate in the care for this patient. Signature: Jean Pierre Gamboa RPh Pager/Extension: [phone] [facility] 05-17-2022 History of Present illness Narrative HPI Mel Pop is a 81 year old female who presents with left submandibular sialadenitis. Patient presented with approximately a week history of swelling in the submandibular gland. Patient was seen in urgent care and placed on Augmentin. Patient feels it is getting worse and pushing on her tongue. Patient also complains of pain into her left ear ROS General Weight loss: No Fatigue: No Night sweats:No Cardiac Chest pain:No Fast heart rate:No Swelling in the feet:No Respiratory Short of breath:No Cough:No Wheezing:No Gastrointestinal Nausea:No Vomiting:No Indigestion:No Past medical history, family history, and social history reviewed. PE There were no vitals taken for this visit. General: Patient is awake, alert, NAD. Voice is normal. Skin: normal Eyes: Extraocular motion and Gaze is normal. Ears: Right external auditory canal is normal. TMJ: normal. Right tympanic membranes normal. Left external auditory canal is normal. Left tympanic membrane normal. Nose: Septum is normal. Turbinates are normal. Nasopharynx:normal Oral Cavity/Oropharynx: Lips normal Dentition normal swelling left floor of mouth with purulence cannot palpate stone quite tender pushing tongue slightly posterior consistent with Ludewig's angina swollen tender gland purulence expressed floor of mouth Tongue normal. Tonsils normal. Palate and uvula normal. Pharynx posterior normal Hypopharynx: Base of tongue normal Pyriform sinus normal. Larynx: Vocal cords normal. Epiglottis normal. Post cricoid normal. Salivary glands: Parotid normal. Submandibular and sublingual normal. Thyroid: normal. Lymphatic/Neck: Lymph nodes normal. Neurologic: Facial nerve normal. ASSESSMENT/PLAN: 1. Acute bacterial sialadenitis - ICD9: 527.2, 041.9, ICD10: K11.21, B96.89 (primary diagnosis) 2. 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 for probable admission for IV antibiotics and airway concern. Patient understands this and will leave shortly. Josiah Barnes MD Findings will be communicated to the referring physician via mail or electronic medical record. documented in this encounter [facility] 05-14-2022 Instructions Jared Velazquez PA-C - 05/14/2022 2:57 PM EDT ASSESSMENT/PLAN: 1. Salivary gland swelling - Tender swelling of left salivary gland Tenderness under the left tongue X 2 days - AMOXICILLIN 875 MG-POTASSIUM CLAVULANATE 125 MG TABLET - CONSULT TO ENT - ER for worsening over the weekend - Follow up with PCP Suck on lemon drops Encourage fluids, rest. Tylenol Try Cepocol lozenges or Chloraseptic throat spray. Warm salt water gargles. Take entire course of Antibiotics. Call PCP if sx worsen or no better. If symptoms worsen, or new symptoms develop go to ER. If you have worsening of breathing or breathing changes- go to ER. If you have persistent fever unrelieved by Tylenol/Motrin- go to the ER. Follow up as needed. Pt agreeable with plan. Barriers to learning: none. The patient verbalizes understanding and is in agreement with plan of care. Jared Velazquez PA-C documented in this encounter [facility] 05-14-2022 History of Present illness Narrative Images from the original note were not included. 05/14/2022 Patient presents with: Mouth Sores: Has lump in jaw area, has sore in mouth SUBJECTIVE: This is a 81 year old that is here today for acute onset tenderness under her tongue on the left side and and a swollen lump under the left jaw x 2 days No sore throat, mouth sores, sinus symptoms, cough, n/v, GABRIEL, or rash. No other sick symptoms. No other URI symptoms. Denies fever, chills, sweats, or fatigue. Patient denies wheezing, shortness of breath, increased WOB, or chest pain. Asthma: none Pneumonia: none Tobacco: none Pain on scale of 0-10 with 0 being no pain and 10 being greatest pain: 0 Nothing makes the symptoms better. Nothing makes them worse. Self-treatment:. none The severity is mild and the symptoms are not improving. The patient did not have a similar problem in the last 3 months. The patient did not take any antibiotics in the last 3 months. The patient was not exposed to strep. Barriers to learning: none. Reviewed meds, OTCs, herbals or supplements. Reviewed allergies, medications, social history, and past medical history. No past medical history on file. ALLERGIES Patient has no known allergies. MEDICATIONS Current Outpatient Medications Medication Sig hydrochlorothiazide 25 mg ORAL Tab Take one(1) tablet daily. amlodipine 5 mg ORAL Tab 1 Tab ORAL DAILY fluticasone-salmeterol 100-50 mcg/Dose INHALATION DsDv 1 Puff INHALATION 2 TIMES DAILY cyclobenzaprine 10 mg ORAL Tab 1 Tab ORAL 3 TIMES DAILY docusate sodium 100 mg ORAL Cap 1 Cap ORAL 2 TIMES DAILY NEEDED ipratropium 0.02 % INHALATION Soln 2.5 mL INHALATION EVERY 6 HOURS NEEDED irbesartan (AVAPRO) 150 mg ORAL Tab 1 tab po daily Fluoxetine HCl 40 mg ORAL Cap 1 tab po daily buPROPion SR (WELLBUTRIN SR) 150 mg ORAL TbSR 1 tab po daily warfarin (COUMADIN) 5 mg ORAL Tab 1 tab po daily Lovastatin 40 mg ORAL Tab 1 tab po daily No current facility-administered medications for this visit. Medications and allergies reviewed by this provider. SOCIAL HISTORY REVIEW OF SYSTEMS Review of Systems ROS: constitutional-neg, HENT-sore throat, Eyes- neg, Allergy- neg, heart-neg, respiratory-neg, GI-neg, skin-neg, lymph-neg, - All systems neg except as noted above in HPI. OBJECTIVE: BP 181/80 Pulse 71 Resp 16 Ht 162.6 cm (5' 4") Wt 72.6 kg (160 lb) SpO2 98% BMI 27.46 kg/m . Vital signs reviewed by this provider. Physical Exam Vitals reviewed. Constitutional: General: She is not in acute distress. Appearance: Normal appearance. She is well-developed and normal weight. She is not ill-appearing, toxic-appearing or diaphoretic. HENT: Head: Normocephalic and atraumatic. No right periorbital erythema or left periorbital erythema. Salivary Glands: Right salivary gland is not diffusely enlarged or tender. Left salivary gland is diffusely enlarged and tender. Right Ear: Tympanic membrane, ear canal and external ear normal. Left Ear: Tympanic membrane, ear canal and external ear normal. Nose: Nose normal. No congestion or rhinorrhea. Right Sinus: No maxillary sinus tenderness or frontal sinus tenderness. Left Sinus: No maxillary sinus tenderness or frontal sinus tenderness. Mouth/Throat: Lips: No lesions. Mouth: Mucous membranes are moist. No oral lesions. Dentition: No gum lesions. Tongue: No lesions. Tongue does not deviate from midline. Palate: No mass and lesions. Pharynx: Oropharynx is clear. No pharyngeal swelling, oropharyngeal exudate, posterior oropharyngeal erythema or uvula swelling. Tonsils: No tonsillar exudate or tonsillar abscesses. Eyes: General: Lids are normal. No scleral icterus. Right eye: No discharge. Left eye: No discharge. Extraocular Movements: Extraocular movements intact. Conjunctiva/sclera: Conjunctivae normal. Pupils: Pupils are equal, round, and reactive to light. Cardiovascular: Rate and Rhythm: Normal rate and regular rhythm. Heart sounds: Normal heart sounds. Pulmonary: Effort: Pulmonary effort is normal. Breath sounds: Normal breath sounds and air entry. Musculoskeletal: Cervical back: Full passive range of motion without pain. No spinous process tenderness or muscular tenderness. Lymphadenopathy: Head: Right side of head: No submental, submandibular, tonsillar, preauricular or posterior auricular adenopathy. Left side of head: No submental, submandibular, tonsillar, preauricular or posterior auricular adenopathy. Cervical: No cervical adenopathy. Skin: General: Skin is warm. Capillary Refill: Capillary refill takes less than 2 seconds. Findings: No rash. Neurological: General: No focal deficit present. Mental Status: She is alert and oriented to person, place, and time. Cranial Nerves: No facial asymmetry. Psychiatric: Attention and Perception: Attention normal. Behavior: Behavior is cooperative. ASSESSMENT/PLAN: 1. Salivary gland swelling - ICD9: 782.3, ICD10: R60.0 Tender swelling of left salivary gland Tenderness under the left tongue X 2 days Consider infection vs inflammatory from a stone Consider lymph node or abscess. - AMOXICILLIN 875 MG-POTASSIUM CLAVULANATE 125 MG TABLET - CONSULT TO ENT - ER for worsening over the weekend - Follow up with PCP Suck on lemon drops Encourage fluids, rest. Tylenol Try Cepocol lozenges or Chloraseptic throat spray. Warm salt water gargles. Take entire course of Antibiotics. Call PCP if sx worsen or no better. If symptoms worsen, or new symptoms develop go to ER. If you have worsening of breathing or breathing changes- go to ER. If you have persistent fever unrelieved by Tylenol/Motrin- go to the ER. Follow up as needed. Pt agreeable with plan. Barriers to learning: none. The patient verbalizes understanding and is in agreement with plan of care. Jared Velazquez PA-C Medical Decision Making: Problems: Moderate: Acute illness with systemic symptoms Risk: Low: Low risk from testing/treatment Moderate: Drug management Medical Decision Making Level: 4 - Moderate I spent a total of 20 minutes on the date of the service which included preparing to see the patient, [id number] patient care, completing clinical documentation, performing a medically appropriate examination, counseling and educating the patient/family/caregiver, and ordering medications, tests, or procedures. documented in this encounter [facility] Evaluation note Diagnosis Salivary gland swelling- Primary Hypertrophy of salivary gland [facility] Diagnosis Acute bacterial sialadenitis- Primary Bashir's, angina [facility] Diagnosis Localized swelling, mass and lump, neck Swelling, mass, or lump in head and neck [facility] Diagnosis Localized swelling, mass and lump, neck Swelling, mass, or lump in head and neck [facility] Diagnosis Localized swelling, mass and lump, neck- Primary Swelling, mass, or lump in head and neck Localized swelling, mass and lump, neck Swelling, mass, or lump in head and neck [facility]* Diagnosis Other specified soft tissue disorders documented [facility] encounter [facility]* Diagnosis Localized swelling, mass and lump, neck- Primary Swelling, mass, or lump in head and neck Localized swelling, mass and lump, neck Swelling, mass, or lump in head and neck [facility] Diagnosis Abnormal findings on diagnostic imaging of other specified body structures Pain in left leg [facility]* 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[facility]* Diagnosis Other specified soft tissue disorders- Primary Other specified soft tissue disorders documented in this encounter [facility]* Diagnosis Abnormal findings on diagnostic imaging of other specified body structures- Primary Pain in left leg Abnormal findings on diagnostic imaging of other specified body structures Pain in left leg [facility]* Diagnosis Peripheral arterial disease (HCC)- Primary Unspecified peripheral vascular disease Right leg pain Pain in soft tissues of limb Peripheral arterial disease (HCC) Unspecified peripheral vascular disease Right leg weakness Muscle weakness (generalized) Atrial fibrillation, unspecified type (HCC) Ischemic leg Unspecified circulatory system disorder documented in this encounter [facility]* Diagnosis Deep vein thrombosis (DVT) of lower extremity, unspecified chronicity, unspecified laterality, unspecified vein (HCC)- Primary documented in this encounter [facility]* Diagnosis Atrial fibrillation, unspecified type (HCC) Acute venous embolism and thrombosis of deep vessels of proximal end of right lower extremity (HCC) documented in this encounter [facility]* Diagnosis Acute deep vein thrombosis (DVT) of iliac vein of right lower extremity (HCC)- Primary PAD (peripheral artery disease) (HCC) Unspecified peripheral vascular disease documented in this encounter [facility]* Diagnosis Deep vein thrombosis (DVT) of lower extremity, unspecified chronicity, unspecified laterality, unspecified vein (HCC) Atrial fibrillation, unspecified type (HCC) Acute venous embolism and thrombosis of deep vessels of proximal end of right lower extremity (HCC) documented in this encounter [facility]* Diagnosis Atrial fibrillation, unspecified type (HCC) Acute venous embolism and thrombosis of deep vessels of proximal end of right lower extremity (HCC) documented in this encounter [facility]* Diagnosis Atrial fibrillation, unspecified type (HCC) Acute venous embolism and thrombosis of deep vessels of proximal end of right lower extremity (HCC) documented in this encounter [facility]* Diagnosis Paroxysmal atrial fibrillation (HCC) Atrial fibrillation documented in this encounter [facility]* Diagnosis Atrial fibrillation, unspecified type (HCC) Acute venous embolism and thrombosis of deep vessels of proximal end of right lower extremity (HCC) Chronic obstructive pulmonary disease, unspecified COPD type (HCC)- Primary Peripheral arterial disease (HCC) Unspecified peripheral vascular disease Essential hypertension Unspecified essential hypertension Atrial fibrillation, unspecified type (HCC) Chronic renal impairment, stage 3 (moderate), unspecified whether stage 3a or 3b CKD (HCC) 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 Nicotine use disorder Tobacco use disorder Abnormal echocardiogram Nonspecific (abnormal) findings on radiological and other examination of other intrathoracic organs Left atrial mass documented in this encounter [facility] note* Diagnosis Retinal detachment, right- Primary Unspecified retinal detachment Vision loss of right eye Unqualified visual loss, one eye Acute intractable headache, unspecified headache type Visual disturbance, subjective Unspecified subjective visual disturbance Vision loss of right eye Unqualified visual loss, one eye Visual disturbance, subjective Unspecified subjective visual disturbance documented in this encounter [facility] note* Diagnosis 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 Hemorrhagic choroidal detachment Dislocation of intraocular lens, initial encounter [facility] Diagnosis 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 Hemorrhagic choroidal detachment [facility] Diagnosis 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 Hemorrhagic choroidal detachment Dislocation of intraocular lens, initial encounter Hemorrhagic choroidal detachment of right eye Hemorrhagic choroidal detachment [facility] Diagnosis 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 Hemorrhagic choroidal detachment Hemorrhagic choroidal detachment of right eye Hemorrhagic choroidal detachment [facility]* Diagnosis Postoperative eye state- Primary Other states following surgery of eye and adnexa Hemorrhagic choroidal detachment of right eye Hemorrhagic choroidal detachment Pseudophakia, right eye Lens replaced by other means Subluxation of right lens Subluxation of lens [facility]* Diagnosis Paroxysmal atrial fibrillation (HCC)- Primary Atrial fibrillation Paroxysmal atrial fibrillation (HCC) Atrial fibrillation documented in this encounter [facility] note* Diagnosis Postoperative eye state Other states following surgery of eye and adnexa Hemorrhagic choroidal detachment of right eye Hemorrhagic choroidal detachment Pseudophakia, right eye Lens replaced by other means Subluxation of right lens Subluxation of lens Hemorrhagic choroidal detachment of right eye Hemorrhagic choroidal detachment [facility]* Diagnosis Post-operative state- Primary Other postprocedural status [facility]* Diagnosis Postoperative eye state Other states following surgery of eye and adnexa Hemorrhagic choroidal detachment of right eye Hemorrhagic choroidal detachment Pseudophakia, right eye Lens replaced by other means Subluxation of right lens Subluxation of lens [facility]* Diagnosis Aspiration pneumonitis (CMS/HCC) (HCC)- Primary Pneumonitis due to inhalation of food or vomitus Aspiration pneumonitis (CMS/HCC) (HCC) Pneumonitis due to inhalation of food or vomitus Vomiting and diarrhea LORENZA (acute kidney injury) (HCC) [facility]* Diagnosis Acute deep vein thrombosis (DVT) of iliac vein of right lower extremity (HCC)- Primary PAD (peripheral artery disease) (HCC) Unspecified peripheral vascular disease [facility]* Diagnosis Postoperative eye state Other states following surgery of eye and adnexa Hemorrhagic choroidal detachment of right eye Hemorrhagic choroidal detachment Pseudophakia, right eye Lens replaced by other means Subluxation of right lens Subluxation of lens documented in this encounter [facility] note* Diagnosis 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 Hemorrhagic choroidal detachment Right retinal detachment Unspecified retinal detachment Postoperative eye state Other states following surgery of eye and adnexa Pseudophakia, right eye Lens replaced by other means Subluxation of right lens Subluxation of lens documented in this encounter [facility] noteNo assessment information availableWPomerene Hospital Work Phone: Evaluation note* Diagnosis PAD (peripheral artery disease) (HCC)- Primary Unspecified peripheral vascular disease Skin ulcer of toe of right foot, limited to breakdown of skin (HCC) [facility]* Diagnosis Critical limb ischemia of right lower extremity (HCC)- Primary [facility]* Diagnosis Pre-op evaluation- Primary Skin ulcer of right great toe (HCC) Critical limb ischemia of right lower extremity (HCC) [facility] Diagnosis Skin ulcer of toe of right foot, limited to breakdown of skin (HCC)- Primary PAD (peripheral artery disease) (HCC) Unspecified peripheral vascular disease Aftercare following surgery of the circulatory system Aftercare following surgery of the circulatory system, NEC [facility] Diagnosis Skin ulcer of toe of right foot, limited to breakdown of skin (HCC) PAD (peripheral artery disease) (HCC) Unspecified peripheral vascular disease Aftercare following surgery of the circulatory system Aftercare following surgery of the circulatory system, NEC [facility]* Diagnosis Aftercare following surgery of the circulatory system- Primary Aftercare following surgery of the circulatory system, NEC PAD (peripheral artery disease) (HCC) Unspecified peripheral vascular disease [facility] Diagnosis 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 Hemorrhagic choroidal detachment [facility] Diagnosis Right retinal detachment- Primary Unspecified retinal detachment Hemorrhagic choroidal detachment of right eye Hemorrhagic choroidal detachment Pseudophakia, right eye Lens replaced by other means [facility]No reason for referral information availableWPomerene Hospital Work Phone: Reason for visit Narrative* Imaging (Routine) - Closed Specialty Diagnoses / Procedures Referred By Elvin t Referred To Contact Cardiology Diagnoses Paroxysmal atrial fibrillation (HCC) Procedures Transthoracic echocardiogram (TTE) complete with contrast, bubble, strain, and 3D PRN ND ECHO TTHRC R-T 2D W/WOM-MODE COMPL SPEC&COLR D ND TTE W OR WO FOL WCON,Jared De La Garza MD [address] [place] [phone] Phone: tel: fax: Referral ID Status Reason Start Date Expiration Date Visits Re quested Visits Authorized [id number] Closed 04/20/2024 04/20/2025 1 1 [facility] for visit Narrative* Auth/Cert (Routine) Specialty Diagnoses / Procedures Referred By Contac t Referred To Contact Diagnoses Aspiration pneumonitis (CMS/HCC) (HCC) LORENZA (acute kidney injury) (HCC) Vomiting and diarrhea Procedures . Abbi Long DO [address] [place] [address] Phone: tel: fax: [facility] [address] [place] [address] Phone: tel: Referral ID Status Reason Start Date Expiration Date Visits Re quested Visits Authorized [id number] 1 1 [facility] for visit Narrative* Auth/Cert (Routine) Specialty Diagnoses / Procedures Referred By Contac t Referred To Contact Diagnoses Skin ulcer of right great toe (HCC) Critical limb ischemia of right lower extremity (HCC) Skin ulcer of right great toe (HCC) [L97.519] Critical limb ischemia of right lower extremity (HCC) [I70.221] Procedures CHG ANGIOGRAPHY EXTREMITY UNILATERAL RS&I CHG AORTOGRAPHY ABDL BI ILIOFEM LOW EXTREM CATH RS&I CHG AORTOGRAPHY ABDOMINAL SERIALOGRAPHY RS&I ND INTRODUCTION CATHETER AORTA ND REVSC OPN/PRG FEM/POP W/ANGIOPLASTY UNI ND REVSC OPN/PRQ TIB/PAMELA W/ANGIOPLASTY UNI ND REVSC OPN/PRQ TIB/PAMELA W/STNT/ANGIOP SM VSL ND REVSC OPN/PRQ FEM/POP W/STNT/ANGIOP SM VSL AORTOILIAC ANGIOGRAPHY, RIGHT LOWER EXTREMITY ANGIOGRAPHY WITH RUNOFF, POSSIBLE SUPERFICIAL FEMORAL ARTERY/POPLITEAL/TIBIAL ANGIOPLASTY/STENTING Kristyn Blankenship MD [address] [address] Phone: tel: fax: [facility] [address] [facility] [place] [address] Phone: tel: Referral ID Status Reason Start Date Expiration Date Visits Re quested Visits Authorized [id number] 1 1 [facility] for visit Narrative* Imaging (Routine) - Closed Specialty Diagnoses / Procedures Referred By Elvin leyva Referred To Contact Vascular Surgery / Radiology Diagnoses Skin ulcer of toe of right foot, limited to breakdown of skin (HCC) PAD (peripheral artery disease) (HCC) Aftercare following surgery of the circulatory system Procedures Vascular US lower extremity arterial duplex right with MICHELLE Kristyn Blankenship MD [address] [place] [id number] Phone: tel: fax: [facility] Imaging [address] [place] [address] Phone: tel: fax: Referral ID Status Reason Start Date Expiration Date Visits Re quested Visits Authorized [id number] Closed 12/05/2024 12/05/2025 1 1 [facility] Discharge Instructions * Attachments The following attachments cannot be sent through Care Everywhere. * Pulp-Space Infection (Sinhala) documented in this encounter* Instructions* Tiffany Zhu PA - 03/07/2020 Keep dressing on, clean, and dry for 3 days (the weekend) following surgery. Then okay to remove the dressing and start soaks (instructions per below) on Tuesday morning. It is okay to shower but do not soak the incision. Please keep a dry dressing or band aid with small amount of antibiotic ointment over the incision until follow up appointment in 1-2 weeks. You received a local injection with lidocaine and epinephrine today. It is normal for your finger tip to look pale or white for up to 10 hours after surgery but if this persists past the 10 hours please call the office immediately. Elevate and Ice for pain control. Encourage ROM of index finger, long finger, ring finger, little finger, thumb, and wrist in dressing with goal of touching fingertips to palm by initial post op appointment. Non weight bearing in operative extremity. Soaks for Open Wounds Dr. Jayla Mcmahan Please remove all dressings so that you may see the skin fully Prepare a clean sink full of warm water (bath temperature). Add 3 or 4 squirts of liquid antibacterial soap Insert hand and soak for approximately 15 minutes, making sure to exercise your fingers under the water After finished soaking, pat wound dry Apply dressing as instructed in the office Layer #1 - Light cotton gauze Layer #2 - ARTURO wrap or other loose covering I typically recommend soaking 3 times per day with a clean dressing change after each soak. To be continued until wound completely closed with no drainage in dressings. documented in this encounter Assessments Diagnosis Felon of finger Diagnosis S/P surgical amputation of finger, right Finger osteomyelitis, right (HCC) Unspecified osteomyelitis, hand History of Present Illness * Jessica Bennett RN - 03/07/2020 10:03 AM EDT Phase II indicated, pt awake and talking, VS stable, pt dressed and ambulated to wheelchair withoutdifficulty, home going instructions reviewed with patient, verbal understanding demonstrated and opportunity given for questions documented in this encounter Advance Directives No Advanced Directives Records FoundLatest Code Status on File Code Status Date Activated Date Inactivated Comments Full Code 03/07/2020 7:56 AM Latest Code Status on File Code Status Date Activated Date Inactivated Comments Full Code 05/18/2022 2:32 AM 05/25/2022 6:16 PM Full Code Order Discussed With: Patient Surrogate Decision Maker Latest Code Status on File Code Status Date Activated Date Inactivated Comments Full Code 06/17/2022 8:30 AM 06/29/2022 8:39 PM Full Code Order Discussed With: Patient Full Code 06/16/2022 11:42 AM 06/16/2022 7:32 PM Full Code 05/18/2022 2:32 AM 05/25/2022 6:16 PM Documents on File Type Date Recorded Patient Engine Test Cell Technician Expl anation Power of Zinc Miner 04/06/2024 10:04 AM Date Activated Date Inactivated Comments 04/04/2024 5:46 AM 04/13/2024 7:54 PM Question Answer Comments ICU transfer: Yes Intubation: No Healthcare Agents on File Name Relationship Healthcare Agent Relationshi p Communication Bacel/ Fidel Castillo Child First Alternat e Health Care Agent Damaris [place] Friend Second Alternate Health Care Agent Healthcare Agents on File Name Relationship Healthcare Agent Relationshi p Communication Bacel/ Fidel Castillo Child First Alternat e Health Care Agent Damaris [place] Friend Second Alternate Health Care Agent Healthcare Agents on File Name Relationship Healthcare Agent Relationshi p Communication Bacel/ Fidel Castillo Child First Alternat e Health Care Agent Damaris [place] Friend Second Alternate Health Care Agent Documents on File Type Date Recorded Patient Engine Test Cell Technician Expl anation Power of Zinc Miner 04/16/2024 1:26 PM Power of Zinc Miner 04/06/2024 10:04 AM Healthcare Agents on File Name Relationship Healthcare Agent Relationshi p Communication Bacel/ Fidelsimran Castillo Child First Alternat e Health Care Agent Damaris [place] Friend Second Alternate Health Care Agent Healthcare Agents on File Name Relationship Healthcare Agent Relationshi p Communication Bacel/ Fidel Sanchez Child First Alternat e Health Care Agent Damaris [place] Friend Second Alternate Health Care Agent Healthcare Agents on File Name Relationship Healthcare Agent Relationshi p Communication Bacel/ Fidel Sanchez Child First Alternat e Health Care Agent Damaris Escobar Second Alternate Health Care Agent Healthcare Agents on File Name Relationship Healthcare Agent Relationshi p Communication Maxwelll/ Fidel Castillo Child First Alternat e Health Care Agent Damaris Escobar Second Alternate Health Care Agent Healthcare Agents on File Name Relationship Healthcare Agent Relationshi p Communication Bacel/ Fidel Castillo Child First Alternat e Health Care Agent Damaris Escobar Second Alternate Health Care Agent Documents on File Type Date Recorded Patient Engine Test Cell Technician Expl anation Power of Zinc Miner 04/16/2024 1:26 PM Power of Zinc Miner 04/06/2024 10:04 AM Date Activated Date Inactivated Comments 04/04/2024 5:46 AM 04/13/2024 7:54 PM Question Answer Comments ICU transfer: Yes Intubation: No Healthcare Agents on File Name Relationship Healthcare Agent Relationshi p Communication José Miguel/ Fidel Castillo Child First Alternat e Health Care Agent Damaris Villafana Friend Second Alternate Health Care Agent Healthcare Agents on File Name Relationship Healthcare Agent Relationshi p Communication Bacel/ Fidel Castillo Child First Alternat e Health Care Agent Damaris Escobar Second Alternate Health Care Agent Documents on File Type Date Recorded Patient Engine Test Cell Technician Expl anation Advance Directive(s) 06/27/2024 12:58 PM Advance Directive(s) 06/20/2024 2:39 PM Advance Directive(s) 06/13/2024 12:39 PM Date Activated Date Inactivated Comments 06/11/2024 10:35 AM 06/19/2024 8:53 PM Question Answer Comments DNR Order Discussed With: Patient Date Activated Date Inactivated Comments 06/17/2022 8:30 AM 06/29/2022 8:39 PM Question Answer Comments Full Code Order Discussed With: Patient Date Activated Date Inactivated Comments 06/16/2022 11:42 AM 06/16/2022 7:32 PM Question Answer Comments Full Code Order Discussed With: Patient Date Activated Date Inactivated Comments 05/18/2022 2:32 AM 05/25/2022 6:16 PM Question Answer Comments Full Code Order Discussed With: PatientSurrogate Decision Maker Documents on File Type Date Recorded Patient Engine Test Cell Technician Expl anation Advance Directive(s) 06/27/2024 12:58 PM Advance Directive(s) 06/20/2024 2:39 PM Advance Directive(s) 06/13/2024 12:39 PM Date Activated Date Inactivated Comments 06/11/2024 10:35 AM 06/19/2024 8:53 PM Question Answer Comments DNR Order Discussed With: Patient Date Activated Date Inactivated Comments 06/17/2022 8:30 AM 06/29/2022 8:39 PM Question Answer Comments Full Code Order Discussed With: Patient Date Activated Date Inactivated Comments 06/16/2022 11:42 AM 06/16/2022 7:32 PM Question Answer Comments Full Code Order Discussed With: Patient Date Activated Date Inactivated Comments 05/18/2022 2:32 AM 05/25/2022 6:16 PM Question Answer Comments Full Code Order Discussed With: PatientSurrogate Decision Maker Date Activated Date Inactivated Comments 07/05/2024 2:17 PM 07/07/2024 1:26 PM Date Activated Date Inactivated Comments 07/05/2024 5:29 AM 07/05/2024 2:17 PM Date Activated Date Inactivated Comments 04/04/2024 5:46 AM 04/13/2024 7:54 PM Question Answer Comments ICU transfer: Yes Intubation: No Healthcare Agents on File Name Relationship Healthcare Agent Relationship Communication Damaris DO NOT CALL-TERMINALLY ILL Broderick Friend First Alternate Health Care Agent Bacel/ Fidel Castillo Mother First Alternat e Health Care Agent Date Activated Date Inactivated Comments 07/07/2024 12:21 PM Date Activated Date Inactivated Comments 06/11/2024 10:35 AM 06/19/2024 8:53 PM Question Answer Comments DNR Order Discussed With: Patient Date Activated Date Inactivated Comments 06/17/2022 8:30 AM 06/29/2022 8:39 PM Date Activated Date Inactivated Comments 06/16/2022 11:42 AM 06/16/2022 7:32 PM Question Answer Comments Full Code Order Discussed With: Patient Date Activated Date Inactivated Comments 05/18/2022 2:32 AM 05/25/2022 6:16 PM Question Answer Comments Full Code Order Discussed With: PatientSurrogate Decision Maker Date Activated Date Inactivated Comments 07/05/2024 2:17 PM 07/07/2024 1:26 PM Date Activated Date Inactivated Comments 07/05/2024 5:29 AM 07/05/2024 2:17 PM Date Activated Date Inactivated Comments 04/04/2024 5:46 AM 04/13/2024 7:54 PM Question Answer Comments ICU transfer: Yes Intubation: No Healthcare Agents on File Name Relationship Healthcare Agent Relationship Communication Damaris DO NOT CALL-TERMINALLY ILL Broderick Escobar First Alternate Health Care Agent Nadira Sheikh First Alternat e Health Care Agent Date Activated Date Inactivated Comments 07/07/2024 12:21 PM 07/18/2024 5:56 PM Documents on File Type Date Recorded Patient Engine Test Cell Technician Expl anation DNR (Do Not Resuscitate) 07/13/2024 10:35 AM Power of Zinc Miner 04/16/2024 1:26 PM Power of Zinc Miner 04/06/2024 10:04 AM Date Activated Date Inactivated Comments 08/03/2024 10:17 AM Question Answer Comments ICU transfer: No Date Activated Date Inactivated Comments 07/05/2024 2:17 PM 07/07/2024 1:26 PM Question Answer Comments ICU transfer: Yes Intubation: No Date Activated Date Inactivated Comments 07/05/2024 5:29 AM 07/05/2024 2:17 PM Date Activated Date Inactivated Comments 04/04/2024 5:46 AM 04/13/2024 7:54 PM Question Answer Comments ICU transfer: Yes Intubation: No Healthcare Agents on File Name Relationship Healthcare Agent Relationship Communication Damaris DO NOT CALL-TERMINALLY ILL Broderick Friend First Alternate Health Care Agent Nadira Sheikh First Alternat e Health Care Agent Documents on File Type Date Recorded Patient Engine Test Cell Technician Expl anation DNR (Do Not Resuscitate) 07/13/2024 10:35 AM Power of Zinc Miner 04/16/2024 1:26 PM Power of Zinc Miner 04/06/2024 10:04 AM Date Activated Date Inactivated Comments 08/03/2024 10:17 AM 08/16/2024 4:47 PM Question Answer Comments ICU transfer: No Date Activated Date Inactivated Comments 07/05/2024 2:17 PM 07/07/2024 1:26 PM Question Answer Comments ICU transfer: Yes Intubation: No Date Activated Date Inactivated Comments 07/05/2024 5:29 AM 07/05/2024 2:17 PM Date Activated Date Inactivated Comments 04/04/2024 5:46 AM 04/13/2024 7:54 PM Question Answer Comments ICU transfer: Yes Intubation: No Healthcare Agents on File Name Relationship Healthcare Agent Relationship Communication Damaris DO NOT CALL-TERMINALLY ILL [place] Friend First Alternate Health Care Agent Nadira Castillo Mother First Alternat e Health Care Agent Healthcare Agents on File Name Relationship Healthcare Agent Relationship Communication Damaris DO NOT CALL-TERMINALLY ILL [place] Friend First Alternate Health Care Agent Nadira Castillo Mother First Alternat e Health Care Agent Healthcare Agents on File Name Relationship Healthcare Agent Relationship Communication Damaris DO NOT CALL-TERMINALLY ILL [place] Friend First Alternate Health Care Agent Nadira Castillo [id number] First Alternat e Health Care Agent Healthcare Agents on File Name Relationship Healthcare Agent Relationship Communication Damaris DO NOT CALL-TERMINALLY ILL [place] Friend First Alternate Health Care Agent Nadira Castillo [id number] First Alternat e Health Care Agent Healthcare Agents on File Name Relationship Healthcare Agent Relationship Communication Damaris DO NOT CALL-TERMINALLY ILL [place] Friend First Alternate Health Care Agent Nadira Castillo [id number] First Alternat e Health Care Agent Date Activated Date Inactivated Comments 08/03/2024 10:17 AM 08/16/2024 4:47 PM Healthcare Agents on File Name Relationship Healthcare Agent Relationship Communication Damaris DO NOT CALL-TERMINALLY ILL [place] Friend First Alternate Health Care Agent Nadira Castillo [id number] First Alternat e Health Care Agent Healthcare Agents on File Name Relationship Healthcare Agent Relationship Communication Damaris DO NOT CALL-TERMINALLY ILL [place] Friend First Alternate Health Care Agent Nadira Castillo [id number] First Alternat e Health Care Agent Healthcare Agents on File Name Relationship Healthcare Agent Relationship Communication Damaris DO NOT CALL-TERMINALLY ILL [place] Friend First Alternate Health Care Agent Nadira Castillo [id number] First Alternat e Health Care Agent Summary Purpose Family History No Family History Records FoundNo Family History Records FoundNo Family History Records FoundNo Family History Records FoundNo Family History Records FoundNo Family History Records FoundNo Family History Records Found Reason for Referral Specialty Diagnoses / Procedures Referred By Contac t Referred To Contact Ent - Otolaryngology Diagnoses Salivary gland swelling Procedures CONSULT TO ENT OFFICE/OUTPATIENT [facility] 60-74 MINUTES Jared Velazquez PA-C [address] [place] [address] Referral ID Status Reason Start Date Expiration Date Visits Requested Visits Authorized [id number] Authorized PCP Requested Referral 2 05/14/2023 1 1 Specialty Diagnoses / Procedures Referred By Elvin t Referred To Contact Radiology Diagnoses Localized swelling, mass and lump, neck Procedures CT soft tissue neck w IV contrast Jared Evans MD [address] [place] [phone] Referral ID Status Reason Start Date Expiration Date Visits Re quested Visits Authorized [id number] Closed 03/08/2023 04/07/2023 1 1 Specialty Diagnoses / Procedures Referred By Elvin t Referred To Contact Cardiology Diagnoses Other specified soft tissue disorders Procedures Vascular US lower extremity venous duplex left Jared Evans MD [address] [place] [phone] Referral ID Status Reason Start Date Expiration Date V isits Requested Visits Authorized [id number] Pending Review 05/24/2023 05/23/2024 1 1 Specialty Diagnoses / Procedures Referred By Elvin t Referred To Contact Radiology Diagnoses Abnormal findings on diagnostic imaging of other specified body structures Pain in left leg Procedures MR tibia fibula left w and wo IV contrast Jared Evans MD [address] [place] [phone] Referral ID Status Reason Start Date Expiration Date Visits Re quested Visits Authorized [id number] Closed 06/01/2023 05/31/2024 1 1 Health Concerns Infection Onset Date Last Indicated Resolved Time COVID-19 Confirmed Comment:First positive per [facility] system 06/02/2022. 06/16/2022 06/16/2022 06/19/2022 5:[address] Chief Complaint and Reason for Visit Chief Complaint Admit Date LABWORK August 20, 2024 5 :22am LABWORK September 03, 2024 5:00am CORRECTION LAB WORK September 03 8:18am CORRECTION LAB WORK September 10 5:00am Chief Complaint Admit Date LABWORK August 20, 2024 5 :22am LABWORK September 03, 2024 5:00am CORRECTION LAB WORK September 03 8:18am CORRECTION LAB WORK September 10 5:00am CORRECTION LAB WORK September 17, 2024 4: 00am Chief Complaint Admit Date LABWORK August 20, 2024 5 :22am LABWORK September 03, 2024 5:00am CORRECTION LAB WORK September 03 8:18am CORRECTION LAB WORK September 10 5:00am CORRECTION LAB WORK September 17, 2024 4: 00am CORRECTION LAB WORK October 08, 2024 5 :00am Additional Source Comments Reason for Visit (unrecogniz ed section and content) Reason Comments Post-op (Ophthalmology) Right Eye Specialty Diagnoses / Procedures Referred By Elvin leyva Referred To Contact HOSP INPATIENT Diagnoses Retinal detachment Acute retinal detachment Retinal detachment Procedures [facility] [address] [place] [address] Referral ID Status Reason Start Date Expiration Date Visits Re quested Visits Authorized [id number] 1 1 Reason Comments 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 Reason Comments Mouth Sores Has lump in jaw area , has sore in mouth Reason Comments salivary gland swelling Left side for 4 days. Was seen in Urgent Care. Treated with Augmentin. Sucking on lemon drops Specialty Diagnoses / Procedures Referred By Contac t Referred To Contact Ent - Otolaryngology Diagnoses Salivary gland swelling Procedures CONSULT TO ENT OFFICE/OUTPATIENT NEW HIGH MDM 60-74 MINUTES Jared Velazquez PA-C [address] [place] [address] Referral ID Status Reason Start Date Expiration Date V isits Requested Visits Authorized [id number] Closed PCP Requested Referral 05/14/2022 05/14/2023 1 1 Reason Comments Follow Up Gyant interaction - F/U - attempt made. No answer. Reason Comments Follow Up Phone Call All Clear Specialty Diagnoses / Procedures Referred By Contac t Referred To Contact Radiology Diagnoses Localized swelling, mass and lump, neck Procedures CT soft tissue neck w IV contrast Jared Evans MD [address] [place] [phone] Referral ID Status Reason Start Date Expiration Date Visits Re quested Visits Authorized [id number] Closed 03/08/2023 04/07/2023 1 1 Specialty Diagnoses / Procedures Referred By Contac t Referred To Contact Cardiology Diagnoses Other specified soft tissue disorders Procedures Vascular US lower extremity venous duplex left Jared Evans MD [address] [place] [phone] Referral ID Status Reason Start Date Expiration Date V isits Requested Visits Authorized [id number] Pending Review 05/24/2023 05/23/2024 1 1 Specialty Diagnoses / Procedures Referred By Contac t Referred To Contact Radiology Diagnoses Abnormal findings on diagnostic imaging of other specified body structures Pain in left leg Procedures MR tibia fibula left w and wo IV contrast Jared Evans MD [address] [place] [phone] Referral ID Status Reason Start Date Expiration Date Visits Re quested Visits Authorized [id number] Closed 06/01/2023 05/31/2024 1 1 Reason Comments New Patient Mass left LE Specialty Diagnoses / Procedures Referred By Elvin t Referred To Contact Sports Medicine Diagnoses Pain in leg, unspecified Jared Evans MD [address] [place] [phone] [place] [address] Referral ID Status Reason Start Date Expiration Date Visits Re quested Visits Authorized [id number] Closed 07/06/2023 07/05/2024 1 1 Reason Comments Numbness Leg Swelling Specialty Diagnoses / Procedures Referred By Contac t Referred To Contact Diagnoses Right leg pain Peripheral arterial disease (HCC) Right leg weakness Atrial fibrillation, unspecified type (HCC) Procedures . Pratibha Avelar DO [address] [place] [address] [facility] [address] [place] [phone] Referral ID Status Reason Start Date Expiration Date Visits Re quested Visits Authorized [id number] 1 1 Reason Comments Follow-up 1st follow up RLE me chanical thrombectomy 04/06/24 (Krzysztof) Reason Onset Date Comments Med Refill 04/27/2024 Specialty Diagnoses / Procedures Referred By Contac t Referred To Contact Diagnoses [I63.9] - Cerebral infarction [facility] [address] [place] [address] Referral ID Status Reason Start Date Expiration Date V isits Requested Visits Authorized [id number] New Request 06/20/2024 08/19/2024 Reason Comments Eye Problem Pt reports blurred v ision, dizziness, and headache. LNW 07/04/24 @ 2130. Hx of strokes x 2, HTN, Afib, and right eye retinal detachment. Specialty Diagnoses / Procedures Referred By Contac t Referred To Contact Diagnoses Retinal detachment, right Vision loss of right eye Procedures . 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 Eye Burning Right Eye Reason Comments Nausea Vomiting States that she was told she threw up twice, pt does not remember. Diarrhea Pt states that she w as sleeping when RN woke her up and notified her that she was incontinent of stool. Specialty Diagnoses / Procedures Referred By Elvin leyva Referred To Contact Diagnoses Aspiration pneumonitis (CMS/HCC) (HCC) LORENZA (acute kidney injury) (HCC) Vomiting and diarrhea Procedures . Abbi Long, [address] [place] [address] Phone: tel: fax: [facility] [address] [address] [place] [address] Phone: tel: Referral ID Status Reason Start Date Expiration Date Visits Re quested Visits Authorized [id number] 1 1 Reason Comments Follow-up 3 month follow up, P AD check ([facility]) Reason Comments Post-op (Ophthalmology) Right Eye 1 marisela h Reason Comments Post op OD Reason Comments Follow-up R leg pain with grea t toe wound-PVR and CTA w runoff 03/2024 Reason Comments Follow-up 1st follow up RLE an juliana, possible SFA/pop/tib angioplasty/stenting 11/22/24 Reason Comments 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; 2nd follow up RLE angio, SFA/pop/tib angioplasty/stenting 11/22/24 ([facility] [phone]) Reason Comments Post-op (Ophthalmology) Right Eye Retinal Detachment OD Eye Crusting OD In the mornings INFORMATION SOURCE (unrecogn ized section and content) DATE CREATED AUTHOR 03/13/2020 [facility] DATE CREATED AUTHOR AUTHOR'S ORGANIZ ATION 06/30/2022 [facility] DATE CREATED AUTHOR AUTHOR'S ORGANIZ ATION 07/10/[address] [facility] DATE CREATED AUTHOR AUTHOR'S ORGANIZ ATION 12/14/2024 [facility] DATE CREATED AUTHOR AUTHOR'S ORGANIZ ATION 01/05/2025 [facility] DATE CREATED AUTHOR AUTHOR'S ORGANIZ ATION 01/09/2025 [facility] DATE CREATED AUTHOR AUTHOR'S ORGANIZ ATION 01/24/2025 [facility] Source Comments (unrecognize d section and content) In the event this informatio n is protected by the Federal Confidentiality of Alcohol and Drug Abuse Patient Records regulations: The Federal rules restrict any use of the information to criminally investigate or prosecute any alcohol or drug abuse patient.[facility] the event this information is protected by the Federal Confidentiality of Alcohol and Drug Abuse Patient Records regulations: The Federal rules restrict any use of the information to criminally investigate or prosecute any alcohol or drug abuse patient.[facility] HospitalIn the event this information is protected by the Federal Confidentiality of Alcohol and Drug Abuse Patient Records regulations: The Federal rules restrict any use of the information to criminally investigate or prosecute any alcohol or drug abuse patient.[facility] Hospital[facility] the event this information is protected by the Federal Confidentiality of Alcohol and Drug Abuse Patient Records regulations: The Federal rules restrict any use of the information to criminally investigate or prosecute any alcohol or drug abuse patient.[facility] Hospital[facility] the event this information is protected by the Federal Confidentiality of Alcohol and Drug Abuse Patient Records regulations: The Federal rules restrict any use of the information to criminally investigate or prosecute any alcohol or drug abuse patient.[facility] HospitalIn the event this information is protected by the Federal Confidentiality of Alcohol and Drug Abuse Patient Records regulations: The Federal rules restrict any use of the information to criminally investigate or prosecute any alcohol or drug abuse patient.[facility] HospitalIn the event this information is protected by the Federal Confidentiality of Alcohol and Drug Abuse Patient Records regulations: The Federal rules restrict any use of the information to criminally investigate or prosecute any alcohol or drug abuse patient.[facility] Hospital[facility] the event this information is protected by the Federal Confidentiality of Alcohol and Drug Abuse Patient Records regulations: The Federal rules restrict any use of the information to criminally investigate or prosecute any alcohol or drug abuse patient.[facility] HospitalIn the event this information is protected by the Federal Confidentiality of Alcohol and Drug Abuse Patient Records regulations: The Federal rules restrict any use of the information to criminally investigate or prosecute any alcohol or drug abuse patient.[facility] Hospital[facility] the event this information is protected by the Federal Confidentiality of Alcohol and Drug Abuse Patient Records regulations: The Federal rules restrict any use of the information to criminally investigate or prosecute any alcohol or drug abuse patient.[facility] HospitalIn the event this information is protected by the Federal Confidentiality of Alcohol and Drug Abuse Patient Records regulations: The Federal rules restrict any use of the information to criminally investigate or prosecute any alcohol or drug abuse patient.[facility] HospitalIn the event this information is protected by the Federal Confidentiality of Alcohol and Drug Abuse Patient Records regulations: The Federal rules restrict any use of the information to criminally investigate or prosecute any alcohol or drug abuse patient.[facility] HospitalIn the event this information is protected by the Federal Confidentiality of Alcohol and Drug Abuse Patient Records regulations: The Federal rules restrict any use of the information to criminally investigate or prosecute any alcohol or drug abuse patient.[facility] HospitalIn the event this information is protected by the Federal Confidentiality of Alcohol and Drug Abuse Patient Records regulations: The Federal rules restrict any use of the information to criminally investigate or prosecute any alcohol or drug abuse patient.[facility] HospitalIn the event this information is protected by the Federal Confidentiality of Alcohol and Drug Abuse Patient Records regulations: The Federal rules restrict any use of the information to criminally investigate or prosecute any alcohol or drug abuse patient.[facility] HospitalIn the event this information is protected by the Federal Confidentiality of Alcohol and Drug Abuse Patient Records regulations: The Federal rules restrict any use of the information to criminally investigate or prosecute any alcohol or drug abuse patient.[facility] HospitalIn the event this information is protected by the Federal Confidentiality of Alcohol and Drug Abuse Patient Records regulations: The Federal rules restrict any use of the information to criminally investigate or prosecute any alcohol or drug abuse patient.[facility] HospitalIn the event this information is protected by the Federal Confidentiality of Alcohol and Drug Abuse Patient Records regulations: The Federal rules restrict any use of the information to criminally investigate or prosecute any alcohol or drug abuse patient.[facility] HospitalIn the event this information is protected by the Federal Confidentiality of Alcohol and Drug Abuse Patient Records regulations: The Federal rules restrict any use of the information to criminally investigate or prosecute any alcohol or drug abuse patient.[facility] Care Teams (unrecognized sec tion and content) Raw Stock Machine Loader Relationship Specialty Start Date End Date Pcp, No PCP - General 01/30/22 08/17/22 Raw Stock Machine Loader Relationship Specialty Start Date End Date Pcp, No PCP - General 01/30/22 08/17/22 Raw Stock Machine Loader Relationship Specialty Start Date End Date Jared Evans MD [address] [place] [address] PCP - General Family Medicine 05/18/22 Raw Stock Machine Loader Relationship Specialty Start Date End Date Jared Evans MD [address] [place] [address] PCP - General Family Medicine 05/18/22 Raw Stock Machine Loader Relationship Specialty Start Date End Date Jared Evans MD [address] [place] [address] PCP - General Family Medicine 05/18/22 Raw Stock Machine Loader Relationship Specialty Start Date End Date Jared Evans MD [facility] [place] [address] [address] PCP - General 03/06/20 Raw Stock Machine Loader Relationship Specialty Start Date End Date Jared Evans MD [address] [place] [address] PCP - General 03/06/20 Raw Stock Machine Loader Relationship Specialty Start Date End Date Jared Evans MD [address] [place] [address] PCP - General 03/06/20 Raw Stock Machine Loader Relationship Specialty Start Date End Date Jared Evans MD [address] [place] [address] PCP - General 03/06/20 Raw Stock Machine Loader Relationship Specialty Start Date End Date Jared Evans MD [address] [place] [address] PCP - General 03/06/20 Raw Stock Machine Loader Relationship Specialty Start Date End Date Jared Evans MD [address] [place] [address] PCP - General 03/06/20 Raw Stock Machine Loader Relationship Specialty Start Date End Date Jared Evans MD [address] [place] [address] PCP - General 03/06/20 Raw Stock Machine Loader Relationship Specialty Start Date End Date Jared Evans MD [address] [place] [address] PCP - General 03/06/20 Raw Stock Machine Loader Relationship Specialty Start Date End Date Jared Evans MD [address] [place] [address] PCP - General 03/06/20 Raw Stock Machine Loader Relationship Specialty Start Date End Date Jared Evans MD [address] [place] [address] PCP - General 03/06/20 Raw Stock Machine Loader Relationship Specialty Start Date End Date Jared Evans MD [address] [place] [address] PCP - General 03/06/20 Raw Stock Machine Loader Relationship Specialty Start Date End Date Jared Evans MD [address] [place] [address] PCP - General 03/06/20 Raw Stock Machine Loader Relationship Specialty Start Date End Date Jared Evans MD [address] [place] [address] PCP - General 03/06/20 Henok Hernandez PA-C [address] [place] [address] [place] [address] Physician Extractor Operator Physician Extractor Operator 04/19/24 Raw Stock Machine Loader Relationship Specialty Start Date End Date Jared Evans MD [address] [place] [address] PCP - General 03/06/20 Henok Hernandez PA-C [address] [place] [address] [place] [address] Physician Extractor Operator Physician Extractor Operator 04/19/24 Raw Stock Machine Loader Relationship Specialty Start Date End Date Jared Evans MD [address] [place] [address] PCP - General 03/06/20 Henok Hernandez PA-C [address] [place] [address] [place] [address] Physician Extractor Operator Physician Extractor Operator 04/19/24 Raw Stock Machine Loader Relationship Specialty Start Date End Date Jared Evans MD [address] [place] [place] [address] PCP - General 03/06/20 Henok Hernandez PA-C [address] [place] [place] [address] Physician Extractor Operator Physician Extractor Operator 04/19/24 Raw Stock Machine Loader Relationship Specialty Start Date End Date Jared Evans MD [address] [place] [place] [address] PCP - General 03/06/20 Henok Hernandez PA-C [address] [place] [address] [place] [address] Physician Extractor Operator Physician Extractor Operator 04/19/24 Raw Stock Machine Loader Relationship Specialty Start Date End Date Jared Evans MD [address] [place] [address] PCP - General 03/06/20 Henok Santizo PA-C [address] [place] [address] [place] [address] Physician Extractor Operator Physician Extractor Operator 04/19/24 Raw Stock Machine Loader Relationship Specialty Start Date End Date Jared Evans MD [address] [place] [address] PCP - General 03/06/20 Henok Santizo PA-C [address] [place] [address] [place] [address] Physician Extractor Operator Physician Extractor Operator 04/19/24 Raw Stock Machine Loader Relationship Specialty Start Date End Date Jared Evans MD [address] [place] [address] PCP - General Family Medicine 05/18/22 Raw Stock Machine Loader Relationship Specialty Start Date End Date Jared Evans MD [address] [place] [address] PCP - General Family Medicine 05/18/22 Raw Stock Machine Loader Relationship Specialty Start Date End Date Jared Evans MD [address] [place] [address] PCP - General 03/06/20 Henok Santizo PA-C [address] [place] [address] Physician Extractor Operator Physician Extractor Operator 04/19/24 Raw Stock Machine Loader Relationship Specialty Start Date End Date Jared vEans MD [address] [place] [address] PCP - General Family Medicine 05/18/22 Raw Stock Machine Loader Relationship Specialty Start Date End Date Jared Evans MD [address] [place] [address] PCP - General Family Medicine 05/18/22 Raw Stock Machine Loader Relationship Specialty Start Date End Date Jared Evans MD [address] [place] [address] PCP - General Family Medicine 05/18/22 Raw Stock Machine Loader Relationship Specialty Start Date End Date Jared Evans MD [address] [place] [address] PCP - General Family Medicine 05/18/22 Raw Stock Machine Loader Relationship Specialty Start Date End Date Jared Evans MD [address] [place] [address] PCP - General Family Medicine 05/18/22 Raw Stock Machine Loader Relationship Specialty Start Date End Date Jared Evans MD [facility] [place] [address] PCP - General 03/06/20 Henok Santizo PA-C [address] [place] [address] Physician Extractor Operator Physician Extractor Operator 04/19/24 Raw Stock Machine Loader Relationship Specialty Start Date End Date Jared Evans MD [address] [place] [address] PCP - General Family Medicine 05/18/22 Raw Stock Machine Loader Relationship Specialty Start Date End Date Jared Evans MD [address] [place] [address] PCP - General Family Medicine 05/18/22 Raw Stock Machine Loader Relationship Specialty Start Date End Date Jared Evans MD [address] [place] [address] PCP - General Family Medicine 05/18/22 Raw Stock Machine Loader Relationship Specialty Start Date End Date Jared Evans MD [facility] [place] [address] PCP - General 03/06/20 Henok Santizo PA-C [address] [place] [address] Physician Extractor Operator Physician Extractor Operator 04/19/24 Raw Stock Machine Loader Relationship Specialty Start Date End Date Jared Evans MD [address] [place] [address] PCP - General 03/06/20 Henok Santizo PA-C [address] [address] Physician Extractor Operator Physician Extractor Operator 04/19/24 Raw Stock Machine Loader Relationship Specialty Start Date End Date Jared Evans MD [address] [place] [address] PCP - General 03/06/20 Henok Santizo PA-C [address] [facility] [address] [place] [address] Physician Extractor Operator Physician Extractor Operator 04/19/[address] [address] Intermediate Facility 08/22/24 Raw Stock Machine Loader Relationship Specialty Start Date End Date Jared Evans MD [address] [place] [address] PCP - General Family Medicine 05/18/22 Raw Stock Machine Loader Relationship Specialty Start Date End Date Jared Evans MD [address] [place] [address] PCP - General Family Medicine 05/18/22 Team Status: Inactive Member Role Status Dates Megan EVERETT Attending Provider Active Sta rt: August 20, 2024 End: August 20, 2024 Team Status: Active Member Role Status Dates Megan EVERETT Attending Provider Active Sta rt: September 03, 2024 Team Status: Active Member Role Status Dates Megan EVERETT Attending Provider Active Sta rt: September 03, 2024 Megan EVERETT Referring Provider Active Sta rt: September 03, 2024 Team Status: Active Member Role Status Dates Megan EVERETT Attending Provider Active Sta rt: September 10, 2024 Team Status: Active Member Role Status Dates Megan EVERETT Attending Provider Active Sta rt: September 17, 2024 Team Status: Inactive Member Role Status Dates Megan EVERETT Attending Provider Active Sta rt: September 03, 2024 End: September 03, 2024 Team Status: Inactive Member Role Status Dates Megan EVERETT Attending Provider Active Sta rt: September 10, 2024 End: September 10, 2024 Team Status: Inactive Member Role Status Dates Megan EVERETT Attending Provider Active Sta rt: September 03, 2024 End: September 03, 2024 Megan EVERETT Referring Provider Active Sta rt: September 03, 2024 End: September 03, 2024 Team Status: Inactive Member Role Status Dates Megan EVERETT Attending Provider Active Sta rt: September 17, 2024 End: September 17, 2024 Megan EVERETT Referring Provider Active Sta rt: September 17, 2024 End: September 17, 2024 Team Status: Active Member Role Status Dates Megan EVERETT Attending Provider Active Sta rt: October 08, 2024 Team Status: Inactive Member Role Status Dates Megan EVERETT Attending Provider Active Sta rt: October 08, 2024 End: October 08, 2024 Raw Stock Machine Loader Relationship Specialty Start Date End Date Jared Evans MD [address] [place] [address] PCP - General 03/06/20 Henok Santizo PA-C [address] [facility] [address] [place] [address] Physician Extractor Operator Physician Extractor Operator 04/19/[address] [place] [address] Intermediate Facility 08/22/24 Raw Stock Machine Loader Relationship Specialty Start Date End Date Jared Evans MD [address] [place] [address] PCP - General 03/06/20 Henok Santizo PA-C [address] [place] [address] Physician Extractor Operator Physician Extractor Operator 04/19/24 [facility] [address] [place] [address] Intermediate Facility 08/22/24 Raw Stock Machine Loader Relationship Specialty Start Date End Date Jared Evans MD [address] [place] [address] PCP - General 03/06/20 eHnok Santizo PA-C [address] [address] Physician Extractor Operator Physician Extractor Operator 04/19/24 [facility] [address] [place] [address] Intermediate Facility 08/22/24 Raw Stock Machine Loader Relationship Specialty Start Date End Date Jared Evans MD [address] [place] [address] PCP - General 03/06/20 Henok Santizo PA-C [address] [address] Physician Extractor Operator Physician Extractor Operator 04/19/24 [facility] [address] [place] [address] Intermediate Facility 08/22/24 Raw Stock Machine Loader Relationship Specialty Start Date End Date Jared Evans MD [address] [place] [address] PCP - General 03/06/20 Henok Santizo PA-C [address] [place] [place] [address] Physician Extractor Operator Physician Extractor Operator 04/19/24 [facility] [address] [place] [address] Intermediate Facility 08/22/24 Raw Stock Machine Loader Relationship Specialty Start Date End Date Megan Montoya [address] [place] [id number] PCP - General Internal Medicine 12/13/24 Henok Santizo PA-C [address] [place] [address] [place] [address] Physician Extractor Operator Physician Extractor Operator 04/19/24 [facility] [address] [place] [address] Intermediate Facility 08/22/24 Raw Stock Machine Loader Relationship Specialty Start Date End Date AbielMegan [address] [place] [id number] PCP - General Internal Medicine 12/13/24 Henok Santizo PA-C [address] [place] [address] Physician Extractor Operator Physician Extractor Operator 04/19/24 Kristyn Blankenship MD [address] [place] [address] Consulting Physician Vascular Surgery 12/24/24 [facility] [address] [place] [address] Intermediate Facility 08/22/24 Raw Stock Machine Loader Relationship Specialty Start Date End Date Jared Evans MD [address] [place] [address] PCP - General Family Medicine 05/18/22 Raw Stock Machine Loader Relationship Specialty Start Date End Date Jared Evans MD [address] [place] [address] PCP - General Family Medicine 05/18/22 Scheduled Active and Recently Administ ered Medications (unrecognized section and content) Medication Order 04/11/2024 04/12/2024 04/13/2024 Fluticasone-Umeclidin- Vilant 100-62.5-25 MCG/ACT aerosol powder 1 puff 1 puff, Inhalation, Daily, First dose (after last modification) on Tue04/11/24 at 0600, Drug Name: Trejamey Ellipta 100-62.5-25mcg/act, Form: aerosol powder, Length of Therapy: Indefinite, How soon needed? (normally 72 hrs needed to procure): 0-24 hrs, Reason for Non-Formulary: home med 0628 (Given - Provider: Norma Davis RN) 0501 (Given - Provider: Norma Davis RN) 0600 (Given - Provider: Norma Davis RN) lisinopril tablet 5 mg 5 mg, Oral, Daily, First dose on Tue04/04/24 at 0800 0849 (Given - Provider: Sravanthi Nichole RN) 0921 (Given - Provider: Arin Thomas) 0807 (Given - Provider: Alin Wallis RN) pantoprazole (ProtoNix) EC tablet 40 mg 40 mg, Oral, Daily before breakfast, First dose on Tue04/04/24 at 0600, Do not crush, chew, or split. 0627 (Given - Provider: Norma Davis RN) 0501 (Given - Provider: Norma Davis RN) 0559 (Given - Provider: Norma Davis RN) warfarin (Coumadin) tablet 5 mg (COMPLETED) 5 mg, Oral, Once Warfarin, On Tue04/11/24 at 1700, For 1 dose 1653 (Given - Provider: Sravanthi Nichole RN) warfarin (Coumadin) tablet 5 mg (COMPLETED) 5 mg, Oral, Once Warfarin, On Tue04/13/24 at 1700, For 1 dose 1604 (Given - Provider: Alin Wallis RN - Comment: patient is about to be discharged) warfarin (Coumadin) tablet 7.5 mg (COMPLETED) 7.5 mg, Oral, Once Warfarin, On Maida 04/12/24 at 1700, For 1 dose 1722 (Given - Provider: Sravanthi Nichole RN) Continuous Medication Order 04/11/2024 04/12/2024 04/13/2024 heparin 25,000 units in dextrose 5% 250mL infusion (premix) (CANCELED) 5-30 Units/kg/hr 72.3 kg (3.615-21.69 mL/hr, rounded to 3.6-21.7 mL/hr), IntraVENous, Continuous, Starting on Tue04/03/24 at 2235, HIGH Dose Heparin Weight Based Dosing (VTE/DVT/PE) >>>>Initial dose: 18 units/kg/hr<<<< Subsequent dosing: aPTT < 30 Heparin Full re-bolus Increase infusion by 2 units/kg/hr - notify prescriber; aPTT 30-45.9 Heparin Half re-bolus Increase infusion by 1 unit/kg/hr; aPTT 46-80.9 No bolus No change; aPTT 81-100.9 Hold heparin for 60 min Decrease infusion by 1 unit/kg/hr; aPTT > 100.9 Hold heparin for 60 min Decrease infusion by 2 units/kg/hr - notify prescriber; Check aPTT: 6 hours after initiation and 6 hours after every dose change - every 12 hrs x 1 day after 2 consecutive therapeutic aPTT - daily after every 12 hrs x 1 day is complete. 0335 (Rate/Dose Verify - Provider: Norma Davis RN)0625 (Rate/Dose Verify - Provider: Norma Davis RN)0700 (Handoff - Provider: Norma Davis RN)0858 (New Bag - Provider: Sravanthi Nichole RN)1002 (Rate/Dose Verify - Provider: Sravanthi Nichole RN)1508 (Rate/Dose Verify - Provider: Sravanthi Nichole RN)1914 (New Bag - Provider: Sravanthi Nichole RN)2244 (Rate/Dose Verify - Provider: Norma Davis RN) 0415 (Rate/Dose Verify - Provider: Norma Davis RN)0632 (Rate/Dose Verify - Provider: Norma Davis RN)0714 (Handoff - Provider: Norma Davis RN)1018 (Rate/Dose Verify - Provider: Sravanthi Nichole RN)1530 (Rate/Dose Verify - Provider: Sravanthi Nichole RN)1823 (New Bag - Provider: Sravanthi Nichole RN)1923 (Handoff - Provider: Norma Davis, RADHA) 0426 (Rate/Dose Verify - Provider: Norma Davis RN)0637 (Rate/Dose Verify - Provider: Norma Davis RN)0728 (Rate/Dose Verify - Provider: Alin Wallis RN)1100 (Stopped - Provider: Alin Wallis RN) PRN Medication Order 04/11/2024 04/12/2024 04/13/2024 acetaminophen (Tylenol) suppository 650 mg(Linked Group 1) 650 mg, Rectal, Every 6 hours PRN, mild pain (1-3), fever, For temp greater than 100.4 F (38 C), Starting on Tue04/04/24 at 0539, Administer if oral route cannot be used. Maximum dose of acetaminophen is 4000 mg from all sources in 24 hours. 0850 (See Alternative - Provider: Sravanthi Nichole RN) 0907 (See Alternative - Provider: Arin Thomas) acetaminophen (Tylenol) tablet 650 mg(Linked Group 1) 650 mg, Oral, Every 6 hours PRN, mild pain (1-3), fever, For temp greater than 100.4 F (38 C), Starting on Tue04/04/24 at 0539, Maximum dose of acetaminophen is 4000 mg from all sources in 24 hours. 0850 (Given - Provider: Sravanthi Nichole RN) 0907 (Given - Provider: Arin Thomas) albuterol 108 (90 Base) MCG/ACT inhaler 1 puff 1 puff, Inhalation, Every 6 hours PRN, wheezing, Starting on Tue04/04/24 at 0513 naloxone (Narcan) injection 0.4 mg 0.4 mg, IntraVENous, Every 5 min PRN, opioid reversal, respiratory depression, Starting on Tue04/04/24 at 2028, +++ For RR <10, pinpoint pupils, over sedation for opioid reversal - MUST notify contract coordinator provider immediately after first dose, may give IM or SQ if no IV access +++ ondansetron (Zofran) injection 4 mg(Linked Group 2) 4 mg, IntraVENous, Every 6 hours PRN, nausea, vomiting, Starting on Tue04/04/24 at 0539, 1st Line. Give IV if patient is unable to take orally. If inadequate response within 60 minutes, proceed to next-line agent or contact provider if no further options ordered. ondansetron ODT (Zofran-ODT) disintegrating tablet 4 mg(Linked Group 2) 4 mg, Oral, Every 8 hours PRN, nausea, vomiting, Starting on Tue04/04/24 at 0539, 1st Line. If inadequate response within 60 minutes, proceed to next-line agent or contact provider if no further options ordered. Patient should allow tablet to dissolve on tongue. Do not remove from blister pack until just before administering. oxyCODONE (Roxicodone) immediate release tablet 2.5 mg(Linked Group 3) 2.5 mg, Oral, Every 4 hours PRN, moderate pain (4-6), Starting on Maida 04/05/24 at 1342 2048 (See Alternative - Provider: Norma Davis RN) 2019 (Given - Provider: Norma Davis, RADHA) oxyCODONE (Roxicodone) immediate release tablet 5 mg(Linked Group 3) 5 mg, Oral, Every 4 hours PRN, severe pain (7-10), Starting on Maida 04/05/24 at 1342 2048 (Given - Provider: Norma Davis, RADHA) 2019 (See Alternative - Provider: Norma Davis, RADHA) polyethylene glycol (PEG) 3350 (Miralax) packet 17 g 17 g, Oral, Daily PRN, constipation, Starting on Tue04/04/24 at 0539, 1st line for treatment of constipation - give scheduled if no bowel movement in past 24 hours. Linked Groups Order Group 1: acetaminophen (Tylenol) tablet 650 mgJump to med 650 mg, Oral, Every 6 hours PRN, mild pain (1-3), fever, For temp greater than 100.4 F (38 C), Starting on Tue04/04/24 at 0539, Maximum dose of acetaminophen is 4000 mg from all sources in 24 hours. Or acetaminophen (Tylenol) suppository 650 mgJump to med 650 mg, Rectal, Every 6 hours PRN, mild pain (1-3), fever, For temp greater than 100.4 F (38 C), Starting on Tue04/04/24 at 0539, Administer if oral route cannot be used. Maximum dose of acetaminophen is 4000 mg from all sources in 24 hours. Group 2: ondansetron ODT (Zofran-ODT) disintegrating tablet 4 mgJump to med 4 mg, Oral, Every 8 hours PRN, nausea, vomiting, Starting on Tue04/04/24 at 0539, 1st Line. If inadequate response within 60 minutes, proceed to next-line agent or contact provider if no further options ordered. Patient should allow tablet to dissolve on tongue. Do not remove from blister pack until just before administering. Or ondansetron (Zofran) injection 4 mgJump to med 4 mg, IntraVENous, Every 6 hours PRN, nausea, vomiting, Starting on Tue04/04/24 at 0539, 1st Line. Give IV if patient is unable to take orally. If inadequate response within 60 minutes, proceed to next-line agent or contact provider if no further options ordered. Group 3: oxyCODONE (Roxicodone) immediate release tablet 2.5 mgJump to med 2.5 mg, Oral, Every 4 hours PRN, moderate pain (4-6), Starting on Maida 04/05/24 at 1342 Or oxyCODONE (Roxicodone) immediate release tablet 5 mgJump to med 5 mg, Oral, Every 4 hours PRN, severe pain (7-10), Starting on Maida 04/05/24 at 1342 Scheduled Medication Order 07/05/2024 07/06/2024 07/07/2024 ascorbic acid (Vitamin C) tablet 500 mg 500 mg, Oral, 3 times daily, First dose on Tue07/05/24 at 1615 1738 (Given - Provider: Cecilia Lopes RN)2028 (Given - Provider: Luis Murry RN) 0907 (Given - Provider: Cecilia Lopes RN)1444 (Given - Provider: Cecilia Lopes RN)210 (Given - Provider: Luis Murry RN) 0936 (Given - Provider: La Avila, RADHA) atorvastatin (Lipitor) tablet 80 mg 80 mg, Oral, Daily, First dose on Tue07/06/24 at 0800 0907 (Given - Provider: Cecilia Lopes RN) 0936 (Given - Provider: La Avila, RADHA) brimonidine (AlphaGAN) 0.2 % ophthalmic solution 1 drop 1 drop, Right Eye, 3 times daily, First dose on Tue07/05/24 at 1400 1524 (Given - Provider: Aurea Castellon RN)2028 (Given - Provider: Luis Murry RN) 0914 (Given - Provider: Cecilia Lopes RN)144 (Given - Provider: Cecilia Lopes RN)2105 (Given - Provider: Luis Murry RN) 0936 (Given - Provider: La Avila, RADHA) dorzolamide (Trusopt) 2 % ophthalmic solution 1 drop 1 drop, Right Eye, 3 times daily, First dose on Tue07/05/24 at 1400 1524 (Given - Provider: Aurea Castellon RN)2028 (Given - Provider: Luis Murry RN) 09 (Given - Provider: Cecilia Lopes RN)144 (Given - Provider: Cecilia Lopes RN)210 (Given - Provider: Luis Murry, RADHA) 0936 (Given - Provider: La Avila, RADHA) enoxaparin (Lovenox) syringe 70 mg 70 mg, SubCUTAneous, Every 12 hours, First dose on Tue07/05/24 at 1500 1738 (Given - Provider: Cecilia Lopes RN) 0406 (Given - Provider: Luis Murry RN)1443 (Given - Provider: Cecilia Lopes RN) 0349 (Given - Provider: Luis Murry RN) fentaNYL (Sublimaze) injection 25 mcg (COMPLETED) 25 mcg, IntraVENous, Once, On Maida 07/05/24 at 0455, For 1 dose, If oral and IV narcotics ordered, use oral first and only use IV if oral is ineffective or cannot take oral. Do Not give oral and IV within 1 hour of each other unless specifically ordered. 0451 (Given - Provider: Arin Jama RN) hydrALAZINE (Apresoline) injection 10 mg (COMPLETED) 10 mg, IntraVENous, Once, On Maida 07/05/24 at 0520, For 1 dose 0517 (Given - Provider: Arin Jama, RN) lisinopril tablet 40 mg 40 mg, Oral, Daily, First dose on Maida 07/05/24 at 1615 1738 (Given - Provider: Cecilia Lopes RN) 0907 (Given - Provider: Cecilia Lopes RN) 0936 (Given - Provider: La Avila, RADHA) metoprolol tartrate (Lopressor) tablet 25 mg 25 mg, Oral, 2 times daily with meals, First dose on Maida 07/05/24 at 1700 1738 (Given - Provider: Cecilia Lopes RN) 0907 (Given - Provider: Cecilia Lopes RN)1626 (Given - Provider: Cecilia Lopes RN) 0936 (Given - Provider: La Avila, RADHA) mometasone-formoterol (Dulera 200) 200-5 MCG/ACT inhaler 2 puff 2 puff, Inhalation, 2 times daily, First dose on Maida 07/05/24 at 2000, Rinse mouth with water after use to reduce aftertaste and incidence of candidiasis. Do not swallow. 1999 (Not Given - Provider: Luis Murry RN - Reason: Patient/family refused) 09 (Given - Provider: Cecilia Lopes RN)1999 (Not Given - Provider: Luis Murry RN - Reason: Patient/family refused) 0936 (Given - Provider: La Avila, RADHA) morphine injection 4 mg (COMPLETED) 4 mg, IntraVENous, Once, On Maida 07/05/24 at 1300, For 1 dose, If oral and IV narcotics ordered, use oral first and only use IV if oral is ineffective or cannot take oral. Do Not give oral and IV within 1 hour of each other unless specifically ordered. 1356 (Given - Provider: Esther Raya RN) ondansetron (Zofran) injection 4 mg (COMPLETED) 4 mg, IntraVENous, Once, On Maida 07/05/24 at 0450, For 1 dose 0445 (Given - Provider: Arin Jama RN) prednisoLONE acetate (Pred-Forte) 1 % ophthalmic suspension 1 drop 1 drop, Right Eye, Every 4 hours scheduled (6 times per day), First dose on Maida 07/05/24 at 1210 1235 (Given - Provider: Esther Raya RN)1742 (Given - Provider: Cecilia Lopes RN)2029 (Given - Provider: Luis Murry RN) 0000 (Given - Provider: Luis Murry RN)0406 (Given - Provider: Luis Murry RN)0908 (Given - Provider: Cecilia Lopes RN)1303 (Given - Provider: Cecilia Lopes, RADHA)1627 (Given - Provider: Cecilia Lopes, RADHA)2106 (Given - Provider: Luis Murry, RADHA) 0000 (Given - Provider: Luis Murry RN)0349 (Given - Provider: Luis Murry RN)0936 (Given - Provider: La Avila RN)1200 (Canceled Entry - Provider: Automatic Discharge Provider - Comment: Automatically canceled at discontinue of medication order) sodium chloride 0.9 % bolus 250 mL (COMPLETED) 250 mL, IntraVENous, at 250 mL/hr, Administer over 1 Hours, Once, On Maida 07/05/24 at 0430, For 1 dose 0542 (New Bag - Provider: Arin Jama RN)0642 (Stopped - Provider: Maritza Armstrong RN) sodium chloride 0.9% (NS) flush 5-40 mL 5-40 mL, IntraVENous, Every 12 hours, First dose on Maida 07/05/24 at 0430, For Line Patency: Peripheral IV = 5 mL; Midline or Central Line = 10 mL/lumen. If following IV push medication, administer flush at same rate as the IV push. Flush volume is determined by type of infusion therapy being given. For non-viscous solutions use: Peripheral IV = 5 mL Midline or Central Line = 10 mL/lumen For viscous solutions (i.e. blood components, parenteral nutrition, contrast media, or after obtaining blood sample) use: Peripheral IV = 10 mL Midline or Central Line = 20 mL/lumen 0430 (Not Given - Provider: Arin Jama RN - Reason: Other)1630 (Not Given - Provider: Cecilia Lopes RN - Reason: IV Fluids Infusing) 0430 (Not Given - Provider: Luis Murry RN - Reason: IV Fluids Infusing)1630 (Not Given - Provider: Cecilia Lopes RN - Reason: IV Fluids Infusing) 0430 (Given - Provider: Luis Murry RN) timolol (Timoptic) 0.5 % ophthalmic solution 1 drop 1 drop, Right Eye, 2 times daily, First dose on Maida 07/05/24 at 1355 1523 (Given - Provider: Aurea Castellon RN)2029 (Given - Provider: Luis Murry RN) 0914 (Given - Provider: Cecilia Lopes RN)2106 (Given - Provider: Luis Murry RN) 0936 (Given - Provider: La Avila RN) tiotropium (Spiriva Respimat) 2.5 MCG/ACT inhaler 2 puff 2 puff, Inhalation, Daily, First dose on Maida 07/05/24 at 1615 1742 (Given - Provider: Cecilia Lopes RN) 0909 (Given - Provider: Cecilia Lopes RN) 0936 (Given - Provider: La Avila, RADHA) Continuous Medication Order 07/05/2024 07/06/2024 07/07/2024 sodium chloride 0.9 % infusion 50 mL/hr, IntraVENous, Continuous, Starting on Maida 07/05/24 at 0430 0645 (New Bag - Provider: Arin Jama RN)0922 (Rate/Dose Verify - Provider: De Lopez RN) 0918 (New Bag - Provider: Cecilia Lopes RN) PRN Medication Order 07/05/2024 07/06/2024 07/07/2024 acetaminophen (Tylenol) suppository 650 mg(Linked Group 1) 650 mg, Rectal, Every 6 hours PRN, mild pain (1-3), fever, For temp greater than 100.4 F (38 C), Starting on Maida 07/05/24 at 1324, Administer if oral route cannot be used. Maximum dose of acetaminophen is 4000 mg from all sources in 24 hours. 0918 (See Alternative - Provider: Cecilia Lopes, RADHA) acetaminophen (Tylenol) tablet 650 mg(Linked Group 1) 650 mg, Oral, Every 6 hours PRN, mild pain (1-3), fever, For temp greater than 100.4 F (38 C), Starting on Maida 07/05/24 at 1324, Maximum dose of acetaminophen is 4000 mg from all sources in 24 hours. 0918 (Given - Provider: Ceiclia Lopes, RADHA) hydrALAZINE (Apresoline) injection 10 mg (CANCELED) 10 mg, IntraVENous, Every 4 hours PRN, high blood pressure, SBP >150, Starting on Maida 07/05/24 at 0527 1226 (Given - Provider: Esther Raya, RADHA) HYDROmorphone (Dilaudid) injection 0.25 mg(Linked Group 2) 0.25 mg, IntraVENous, Every 4 hours PRN, moderate pain (4-6), Starting on Maida 07/05/24 at 0540, If oral and IV narcotics ordered, use oral first and only use IV if oral is ineffective or cannot take oral. Do Not give oral and IV within 1 hour of each other unless specifically ordered. 0554 (See Alternative - Provider: Arin Jama, RADHA)1005 (See Alternative - Provider: De Lopez RN) 1217 (See Alternative - Provider: Cecilia Lopes RN)2108 (See Alternative - Provider: Luis Murry, RADHA) 0300 (See Alternative - Provider: Luis Murry, RADHA)0724 (See Alternative - Provider: La Avila, RADHA) HYDROmorphone (Dilaudid) injection 0.5 mg(Linked Group 2) 0.5 mg, IntraVENous, Every 4 hours PRN, severe pain (7-10), Starting on Maida 24 at 0540, If oral and IV narcotics ordered, use oral first and only use IV if oral is ineffective or cannot take oral. Do Not give oral and IV within 1 hour of each other unless specifically ordered. 0554 (Given - Provider: Arin Jama, RN)1005 (Given - Provider: De Lopez, RN) 1217 (Given - Provider: Cecilia Lopes, RADHA)2108 (Given - Provider: Luis Murry, RN) 0300 (Given - Provider: Luis Murry, RN)0724 (Given - Provider: La Avila, RADHA) iopamidol (Isovue-370) 76 % injection 100 mL (COMPLETED) 100 mL, IntraVENous, IMG once PRN, contrast, Starting on Maida 24 at 0440, For 1 dose 0440 (Given - Provider: Neida Galindo, RT (R)(CT)) naloxone (Narcan) injection 0.4 mg 0.4 mg, IntraVENous, As needed, opioid reversal, pinpoint pupils, Starting on Maida 24 at 0540, administer IV PRN for oversedation, RR LESS than 10 ondansetron (Zofran) injection 4 mg(Linked Group 3) 4 mg, IntraVENous, Every 6 hours PRN, nausea, vomiting, Starting on Maida 12/24 at 0523, 1st Line. Give IV if patient is unable to take orally. If inadequate response within 60 minutes, proceed to next-line agent or contact provider if no further options ordered. 1228 (Given - Provider: Esther Raya RN) 1513 (See Alternative - Provider: Cecilia Lopes, RADHA) ondansetron ODT (Zofran-ODT) disintegrating tablet 4 mg(Linked Group 3) 4 mg, Oral, Every 8 hours PRN, nausea, vomiting, Starting on Maida //24 at 0523, 1st Line. If inadequate response within 60 minutes, proceed to next-line agent or contact provider if no further options ordered. Patient should allow tablet to dissolve on tongue. Do not remove from blister pack until just before administering. 1228 (See Alternative - Provider: Esther Raya RN) 1513 (Given - Provider: Cecilia Lopes RN) oxyCODONE (Roxicodone) immediate release tablet 5 mg 5 mg, Oral, Every 6 hours PRN, severe pain (7-10), moderate pain (4-6), Starting on Maida 07/05/24 at 1444 1659 (Given - Provider: Cecilia Lopes RN) 1103 (Given - Provider: Cecilia Lopes RN) polyethylene glycol (PEG) 3350 (Miralax) packet 17 g 17 g, Oral, Daily PRN, constipation, Starting on Maida 07/05/24 at 1324, 1st line for treatment of constipation - give scheduled if no bowel movement in past 24 hours. prochlorperazine (Compazine) injection 5 mg 5 mg, IntraVENous, Every 6 hours PRN, nausea, vomiting, Starting on Maida 07/05/24 at 1444 1700 (Given - Provider: Cecilia Lopes RN) sodium chloride 0.9 % infusion 5-250 mL/hr, IntraVENous, PRN, if patient receiving piggyback infusions and maintenance fluids are not ordered OR KVO fluids to protect IV site / prevent frequent line interruptions / long duration, Starting on Maida 07/05/24 at 0427, For piggyback infusion, administer at same rate as piggyback for a total of 25 mL. Enter 25 mL into dose field and piggyback rate into rate field of order. If piggyback is infusing at a rate less than 100 mL/hr, enter 25 mL into dose field and 100 mL/hr into rate field of order. For KVO fluids, enter rate of 20 mL/hr or less into rate field of order. sodium chloride 0.9% (NS) flush 5-40 mL 5-40 mL, IntraVENous, PRN, line care, After every IV line use, Starting on Maida 07/05/24 at 0427, For Line Patency: Peripheral IV = 5 mL; Midline or Central Line = 10 mL/lumen. If following IV push medication, administer flush at same rate as the IV push. Flush volume is determined by type of infusion therapy being given. For non-viscous solutions use: Peripheral IV = 5 mL Midline or Central Line = 10 mL/lumen For viscous solutions (i.e. blood components, parenteral nutrition, contrast media, or after obtaining blood sample) use: Peripheral IV = 10 mL Midline or Central Line = 20 mL/lumen Linked Groups Order Group 1: acetaminophen (Tylenol) tablet 650 mgJump to med 650 mg, Oral, Every 6 hours PRN, mild pain (1-3), fever, For temp greater than 100.4 F (38 C), Starting on Maida 07/05/24 at 1324, Maximum dose of acetaminophen is 4000 mg from all sources in 24 hours. Or acetaminophen (Tylenol) suppository 650 mgJump to med 650 mg, Rectal, Every 6 hours PRN, mild pain (1-3), fever, For temp greater than 100.4 F (38 C), Starting on Maida 07/05/24 at 1324, Administer if oral route cannot be used. Maximum dose of acetaminophen is 4000 mg from all sources in 24 hours. Group 2: HYDROmorphone (Dilaudid) injection 0.25 mgJump to med 0.25 mg, IntraVENous, Every 4 hours PRN, moderate pain (4-6), Starting on Maida 07/05/24 at 0540, If oral and IV narcotics ordered, use oral first and only use IV if oral is ineffective or cannot take oral. Do Not give oral and IV within 1 hour of each other unless specifically ordered. Or HYDROmorphone (Dilaudid) injection 0.5 mgJump to med 0.5 mg, IntraVENous, Every 4 hours PRN, severe pain (7-10), Starting on Maida 07/05/24 at 0540, If oral and IV narcotics ordered, use oral first and only use IV if oral is ineffective or cannot take oral. Do Not give oral and IV within 1 hour of each other unless specifically ordered. Group 3: ondansetron ODT (Zofran-ODT) disintegrating tablet 4 mgJump to med 4 mg, Oral, Every 8 hours PRN, nausea, vomiting, Starting on Maida 07/05/24 at 0523, 1st Line. If inadequate response within 60 minutes, proceed to next-line agent or contact provider if no further options ordered. Patient should allow tablet to dissolve on tongue. Do not remove from blister pack until just before administering. Or ondansetron (Zofran) injection 4 mgJump to med 4 mg, IntraVENous, Every 6 hours PRN, nausea, vomiting, Starting on Maida 07/05/24 at 0523, 1st Line. Give IV if patient is unable to take orally. If inadequate response within 60 minutes, proceed to next-line agent or contact provider if no further options ordered. Scheduled Medication Order 08/14/2024 08/15/2024 08/16/2024 amLODIPine (Norvasc) tablet 5 mg 5 mg, Oral, Daily, First dose on Tue08/12/24 at 0900 1014 (Given - Provider: Mp Fallon RN) 0943 (Given - Provider: Cici Perez RN) 1022 (Given - Provider: Cici Perez RN) apixaban (Eliquis) tablet 5 mg 5 mg, Oral, 2 times daily, First dose on Tue08/03/24 at 1100, Anticoagulant 1014 (Given - Provider: Mp Fallon RN)2135 (Given - Provider: Wanda Mendoza RN) 0943 (Given - Provider: Cici Perez RN)2141 (Given - Provider: Jessica Bailey RN) 1023 (Given - Provider: Cici Perez RN) atorvastatin (Lipitor) tablet 80 mg 80 mg, Oral, Nightly, First dose on Tue08/03/24 at 2100 2135 (Given - Provider: Wanda Mendoza RN) 2141 (Given - Provider: Jessica Bailey RN) atropine 1 % ophthalmic solution 1 drop 1 drop, Right Eye, Daily, First dose on Tue08/03/24 at 1100 1015 (Given - Provider: Mp Fallon RN) 0944 (Given - Provider: Cici Perez RN) 1024 (Given - Provider: Cici Perez RN) lisinopril tablet 40 mg 40 mg, Oral, Daily, First dose on Tue08/04/24 at 0800 1014 (Given - Provider: Mp Fallon RN) 0943 (Given - Provider: Cici Perez RN) 1023 (Given - Provider: Cici Perez RN - Comment: not given at scheduled time) metoprolol tartrate (Lopressor) tablet 25 mg 25 mg, Oral, 2 times daily with meals, First dose on Tue08/03/24 at 1700 1014 (Given - Provider: Mp Fallon RN)1709 (Given - Provider: Mp Fallon RN) 0944 (Given - Provider: Cici Perez RN)1805 (Given - Provider: Cici Perez RN) 1022 (Given - Provider: Cici Perez RN - Comment: not given at scheduled time) mometasone-formoterol (Dulera 100) 100-5 MCG/ACT inhaler 2 puff 2 puff, Inhalation, 2 times daily, First dose on Tue08/03/24 at 1030, Rinse mouth with water after use to reduce aftertaste and incidence of candidiasis. Do not swallow. 1015 (Given - Provider: Mp Fallon RN)2135 (Given - Provider: Wanda Mendoza RN) 0945 (Given - Provider: Cici Perez RN)2141 (Given - Provider: Jessica Bailey RN) 1024 (Given - Provider: Cici Perez RN - Comment: not given at scheduled time) prednisoLONE acetate (Pred-Forte) 1 % ophthalmic suspension 1 drop 1 drop, Right Eye, 4 times daily, First dose on Tue08/03/24 at 1300 1015 (Given - Provider: Mp Fallon RN)1251 (Given - Provider: Mp Fallon RN)1709 (Given - Provider: Mp Fallon RN)2136 (Given - Provider: Wanda Mendoza RN) 0944 (Given - Provider: Cici Perez RN)1342 (Given - Provider: Cici Perez RN)1806 (Given - Provider: Cici Perez RN)2140 (Given - Provider: Jessica Bailey RN) 1024 (Given - Provider: Cici Perez RN)1300 (Canceled Entry - Provider: Automatic Discharge Provider - Comment: Automatically canceled at discontinue of medication order) timolol (Timoptic) 0.5 % ophthalmic solution 1 drop 1 drop, Right Eye, 2 times daily, First dose on Tue08/03/24 at 1100 1015 (Given - Provider: Mp Fallon RN)2136 (Given - Provider: Wanda Mendoza RN) 0944 (Given - Provider: Cici Perez RN)2146 (Given - Provider: Jessica Bailey RN) 1024 (Given - Provider: Cici Perez RN) tiotropium (Spiriva Respimat) 2.5 MCG/ACT inhaler 2 puff 2 puff, Inhalation, Daily, First dose on Tue08/03/24 at 1030 0900 (Not Given - Provider: Mp Fallon RN - Reason: Medication not available) 0945 (Given - Provider: Cici Perez RN) 1024 (Given - Provider: Cici Perez RN) PRN Medication Order 08/14/2024 08/15/2024 08/16/2024 acetaminophen (Tylenol) suppository 650 mg(Linked Group 1) 650 mg, Rectal, Every 6 hours PRN, mild pain (1-3), fever, For temp greater than 100.4 F (38 C), Starting on Tue08/03/24 at 1002, Administer if oral route cannot be used. Maximum dose of acetaminophen is 4000 mg from all sources in 24 hours. acetaminophen (Tylenol) tablet 650 mg(Linked Group 1) 650 mg, Oral, Every 6 hours PRN, mild pain (1-3), fever, For temp greater than 100.4 F (38 C), Starting on Tue08/03/24 at 1002, Maximum dose of acetaminophen is 4000 mg from all sources in 24 hours. erythromycin (Romycin) 5 MG/GM ophthalmic ointment Right Eye, As needed, right eye drainage, Starting on Tue08/03/24 at 1033, Apply Amount per Dose: 0.5 inch (~1 cm) per dose. For eye discharge 1015 (Given - Provider: Mp Fallon RN) ipratropium-albuterol (Duo-Neb) 0.5-2.5 mg/3 mL nebulizer solution 3 mL 3 mL, Nebulization, As needed, wheezing, Starting on Tue08/03/24 at 1049 ondansetron (Zofran) injection 4 mg(Linked Group 2) 4 mg, IntraVENous, Every 6 hours PRN, nausea, vomiting, Starting on Tue08/03/24 at 1002, 1st Line. Give IV if patient is unable to take orally. If inadequate response within 60 minutes, proceed to next-line agent or contact provider if no further options ordered. ondansetron ODT (Zofran-ODT) disintegrating tablet 4 mg(Linked Group 2) 4 mg, Oral, Every 8 hours PRN, nausea, vomiting, Starting on Tue08/03/24 at 1002, 1st Line. If inadequate response within 60 minutes, proceed to next-line agent or contact provider if no further options ordered. Patient should allow tablet to dissolve on tongue. Do not remove from blister pack until just before administering. Linked Groups Order Group 1: acetaminophen (Tylenol) tablet 650 mgJump to med 650 mg, Oral, Every 6 hours PRN, mild pain (1-3), fever, For temp greater than 100.4 F (38 C), Starting on Tue08/03/24 at 1002, Maximum dose of acetaminophen is 4000 mg from all sources in 24 hours. Or acetaminophen (Tylenol) suppository 650 mgJump to med 650 mg, Rectal, Every 6 hours PRN, mild pain (1-3), fever, For temp greater than 100.4 F (38 C), Starting on Tue08/03/24 at 1002, Administer if oral route cannot be used. Maximum dose of acetaminophen is 4000 mg from all sources in 24 hours. Group 2: ondansetron ODT (Zofran-ODT) disintegrating tablet 4 mgJump to med 4 mg, Oral, Every 8 hours PRN, nausea, vomiting, Starting on Tue08/03/24 at 1002, 1st Line. If inadequate response within 60 minutes, proceed to next-line agent or contact provider if no further options ordered. Patient should allow tablet to dissolve on tongue. Do not remove from blister pack until just before administering. Or ondansetron (Zofran) injection 4 mgJump to med 4 mg, IntraVENous, Every 6 hours PRN, nausea, vomiting, Starting on Tue08/03/24 at 1002, 1st Line. Give IV if patient is unable to take orally. If inadequate response within 60 minutes, proceed to next-line agent or contact provider if no further options ordered. Scheduled Medication Order 11/20/2024 11/21/2024 11/22/2024 acetaminophen (Tylenol) tablet 1,000 mg (COMPLETED) 1,000 mg, Oral, Once, On Maida 11/22/24 at 0830, For 1 dose, Preprocedure, Maximum dose of acetaminophen is 4000 mg from all sources in 24 hours. Do not administer if patient has taken tylenol <6 hours earlier. Do not give if contraindicated ie. patient has active liver disease or cirrhosis. 0845 (Given - Provid er: Jessica Martinez RN) aspirin EC tablet 81 mg (COMPLETED) 81 mg, Oral, Once, On Maida 11/22/24 at 1145, For 1 dose, Do not crush, chew, or split. 1304 (Given - Provid er: Theresa De Santiago RN) clopidogrel (Plavix) tablet 150 mg (COMPLETED) 150 mg, Oral, Once, On Maida 11/22/24 at 1145, For 1 dose 1304 (Given - Provid er: Theresa De Santiago RN) famotidine (Pepcid) tablet 20 mg (COMPLETED)(Linked Group 1) 20 mg, Oral, Once, On Maida 11/22/24 at 0830, For 1 dose, Preprocedure, IV or ORAL 0845 (Given - Provid er: Jessica Martinez RN) sodium chloride 0.9% (NS) flush 5-40 mL 5-40 mL, IntraVENous, Every 12 hours, First dose on Maida 11/22/24 at 0815, Preprocedure, For Line Patency: Peripheral IV = 5 mL; Midline or Central Line = 10 mL/lumen. If following IV push medication, administer flush at same rate as the IV push. Flush volume is determined by type of infusion therapy being given. For non-viscous solutions use: Peripheral IV = 5 mL Midline or Central Line = 10 mL/lumen For viscous solutions (i.e. blood components, parenteral nutrition, contrast media, or after obtaining blood sample) use: Peripheral IV = 10 mL Midline or Central Line = 20 mL/lumen 0815 (Canceled Entry - Provider: Automatic Discharge Provider - Comment: Automatically canceled at discontinue of medication order) sodium chloride 0.9% (NS) flush 5-40 mL 5-40 mL, IntraVENous, Every 12 hours, First dose on Maida 11/22/24 at 0830, Preprocedure, For Line Patency: Peripheral IV = 5 mL; Midline or Central Line = 10 mL/lumen. If following IV push medication, administer flush at same rate as the IV push. Flush volume is determined by type of infusion therapy being given. For non-viscous solutions use: Peripheral IV = 5 mL Midline or Central Line = 10 mL/lumen For viscous solutions (i.e. blood components, parenteral nutrition, contrast media, or after obtaining blood sample) use: Peripheral IV = 10 mL Midline or Central Line = 20 mL/lumen 0830 (Canceled Entry - Provider: Automatic Discharge Provider - Comment: Automatically canceled at discontinue of medication order) Continuous Medication Order 11/20/2024 11/21/2024 11/22/2024 sodium chloride 0.9 % infusion 50 mL/hr, IntraVENous, Continuous, Starting on Maida 11/22/24 at 0815, Preprocedure, Upon admission to sameday - please start iv if patient does not have iv access. 0815 (Canceled Entry - Provider: Automatic Discharge Provider - Comment: Automatically canceled at discontinue of medication order) sodium chloride 0.9 % infusion 50 mL/hr, IntraVENous, Continuous, Starting on Maida 11/22/24 at 0830, Preprocedure, Upon admission to sameday - please start iv if patient does not have iv access. 0845 (New Bag - Prov ider: Jessica Martinez RN) PRN Medication Order 11/20/2024 11/21/2024 11/22/2024 ALPRAZolam (Xanax) disintegrating tablet 0.25 mg 0.25 mg, Oral, Once PRN, anxiety, Starting on Maida 11/22/24 at 0809, For 1 dose, Preprocedure, Please do not administer prior to obtaining consent and/or history and physical. heparin 1,000 Units in sodium chloride 0.9 % 500 mL OR irrigation (CANCELED) As needed, Starting on Maida 11/22/24 at 0952, Intraprocedure 0952 (Given - Provid er: Kristyn Blankenship MD) iodixanol (VISIPaque) 320 MG/ML injection (COMPLETED) Continuous PRN, Starting on Maida 11/22/24 at 1105, Intraprocedure 1105 (New Bag - Prov ider: Kristyn Blankenship MD) lidocaine (Xylocaine) 1 % injection (CANCELED) As needed, Starting on Maida 11/22/24 at 0946, Intraprocedure 0946 (Given - Provid er: Kristyn Blankenship MD) sodium chloride 0.9 % infusion 5-250 mL/hr, IntraVENous, PRN, if patient receiving piggyback infusions and maintenance fluids are not ordered OR KVO fluids to protect IV site / prevent frequent line interruptions / long duration, Starting on Maida 11/22/24 at 0809, Preprocedure, For piggyback infusion, administer at same rate as piggyback for a total of 25 mL. Enter 25 mL into dose field and piggyback rate into rate field of order. If piggyback is infusing at a rate less than 100 mL/hr, enter 25 mL into dose field and 100 mL/hr into rate field of order. For KVO fluids, enter rate of 20 mL/hr or less into rate field of order. sodium chloride 0.9 % infusion 5-250 mL/hr, IntraVENous, PRN, if patient receiving piggyback infusions and maintenance fluids are not ordered OR KVO fluids to protect IV site / prevent frequent line interruptions / long duration, Starting on Maida 11/22/24 at 0815, Preprocedure, For piggyback infusion, administer at same rate as piggyback for a total of 25 mL. Enter 25 mL into dose field and piggyback rate into rate field of order. If piggyback is infusing at a rate less than 100 mL/hr, enter 25 mL into dose field and 100 mL/hr into rate field of order. For KVO fluids, enter rate of 20 mL/hr or less into rate field of order. sodium chloride 0.9% (NS) flush 5-40 mL 5-40 mL, IntraVENous, PRN, line care, After every IV line use, Starting on Maida 11/22/24 at 0809, Preprocedure, For Line Patency: Peripheral IV = 5 mL; Midline or Central Line = 10 mL/lumen. If following IV push medication, administer flush at same rate as the IV push. Flush volume is determined by type of infusion therapy being given. For non-viscous solutions use: Peripheral IV = 5 mL Midline or Central Line = 10 mL/lumen For viscous solutions (i.e. blood components, parenteral nutrition, contrast media, or after obtaining blood sample) use: Peripheral IV = 10 mL Midline or Central Line = 20 mL/lumen sodium chloride 0.9% (NS) flush 5-40 mL 5-40 mL, IntraVENous, PRN, line care, After every IV line use, Starting on Maida 11/22/24 at 0815, Preprocedure, For Line Patency: Peripheral IV = 5 mL; Midline or Central Line = 10 mL/lumen. If following IV push medication, administer flush at same rate as the IV push. Flush volume is determined by type of infusion therapy being given. For non-viscous solutions use: Peripheral IV = 5 mL Midline or Central Line = 10 mL/lumen For viscous solutions (i.e. blood components, parenteral nutrition, contrast media, or after obtaining blood sample) use: Peripheral IV = 10 mL Midline or Central Line = 20 mL/lumen Linked Groups Order Group 1: famotidine (Pepcid) tablet 20 mg (COMPLETED)Jump to med 20 mg, Oral, Once, On Maida 11/22/24 at 0830, For 1 dose, Preprocedure, IV or ORAL Or famotidine (Pepcid) 20 mg in sodium chloride (PF) 0.9 % 10 mL injection (COMPLETED) 20 mg, IntraVENous, Administer over 2 Minutes, Once, On Maida 11/22/24 at 0830, For 1 dose, Preprocedure, IV or ORAL Goals (unrecognized section and content) Goals may be documented in a n alternate sectionGoals may be documented in an alternate sectionGoals may be documented in an alternate sectionGoals may be documented in an alternate sectionGoals may be documented in an alternate sectionGoals may be documented in an alternate section FOR RECORDS PERTAINING TO PATIENTS WHO ARE OR HAVE BEEN ENROLLED IN A CHEMICAL DEPENDENCY/SUBSTANCEABUSE PROGRAM, SOME INFORMATION MAY BE OMITTED. This clinical summary was aggregated from multiple sources. Caution should be exercised in using it in the provision of clinical care. This summary normalizes information from multiple sources, and as a consequence, information in this document may materially change the coding, format and clinical context of patient data. In addition, data may be omitted in some cases. CLINICAL DECISIONS SHOULD BE BASED ON THE PRIMARY CLINICAL RECORDS. [facility]. provides no warranty or guarantee of the accuracy or completeness of information in this document.
[2025-01-25 07:59] LABS: INR Fingerstick 3.4
== END ==
LOC: OLS.SANC 05:00
PROVIDERS: Visit Provider Internal Medicine
DX: Z79.01 Long term (current) use of anticoagulants (principal)
CPT/HCPCS: 36416; 85610

== ENCOUNTER → 2025-01-28 05:00 | Outpatient (REF) | payer MEDICARE, SELFPAY ==
--- OUTSIDE RECORDS SUMMARY | 2025-01-28 04:15 | XMS RPT_ITS | CCD ---
Author Organization [facility] Care Team Providers Care Slate Splitter Name Role Phone Maryuri King Primary Care Provider Jared Evans Primary Care Provider Pcp, No Primary Care Provider Unavailabl Jared Barahona MD Primary Care Provider [phone] BERNIE MANE Admitting Unavailable IWONA CHU Attending Unavailable MING OLSON Consulting Unavailable SIM ELIZABETH Attending Unavailable PRIMO DODD Referring Unavailable Jared Evans MD Primary Care Provider Jared Evans MD Primary Care Provider Henok Hernandez PA-C Unavailable Henok Santizo PA-C Unavailable Jared Evans MD Primary Care Provider [phone] SYSTEM, PROVIDER NOT IN Referring Unavaila Megan Rice Attending Provider Unavailab Megan Porras Referring Provider Unavailab Megan Porras Attending Provider Unavailab Megan Porras Referring Provider Unavailab TORSTEN Hernandez Consulting Unavailable JARED EVANS Primary Care Unavailable FELICIA COREAS Admitting Unavailable DON EDWARDS Attending Unavailable Megan Montoya Primary Care Provider Kristyn Blankenship MD Unavailable [phone] RED HENDERSON Referring Unavail able JARED EVANS Primary Care Unavailable FELICIA LEVY Admitting Unavailable BRIANA PRITCHARD Attending Unavailable MAMMO, SAVANA A Attending Unavailable MAMMO, SAVANA A Referring Unavailable EVANS, WEBSTER N Primary Care Unavailable MAMMO, SAVANA A Referring Unavailable EVANS, [facility] Primary Care Unavailable MAMMO, SAVANA A Attending Unavailable EVANS, WEBSTER N Primary Care Unavailable MAMMO, SAVANA A Attending Unavailable EVANS, WEBSTER N Primary Care Unavailable MAMMO, SAVANA A Attending Unavailable EVANS, WEBSTER N Primary Care Unavailable MAMMO, SAVANA A Referring Unavailable EVANS, WEBSTER N Primary Care Unavailable MADHU, DEVIKA A Admitting Unavailable MADHU, DEVIKA A Attending Unavailable EVANS, WEBSTER N Primary Care Unavailable AZAR BURK Consulting Unavailable MAMMO, SAVANA A Admitting Unavailable MAMMO, SAVANA A Attending Unavailable EVANS, WEBSTER N Primary Care Unavailable MAMMO, SAVANA A Attending Unavailable SELF Referring Unavailable EVANS, [facility] Primary Care Unavailable EVANS, [facility] Primary Care Unavailable SELF Referring Unavailable EVANS, [facility] Primary Care Unavailable SELF Referring Unavailable EVANS, [facility] Primary Care Unavailable SELF Referring Unavailable EVANS, [facility] Primary Care Unavailable MAMMO, SAVANA A Attending Unavailable MAMMO, SAVANA A Referring Unavailable EVANS, [facility] Primary Care Unavailable SELF Referring Unavailable EVANS, [facility] Primary Care Unavailable EVANS, WEBSTER Primary Care Unavailable ANDRE WHIPPLE Consulting Unavailable PRATIBHA AVELAR Admitting Unavailable JORDIN ROLDAN Attending Unavailable EVANS, WEBSTER Primary Care Unavailable DEVIN, RED Attending Unavailable DEVIN, RED Admitting Unavailable EVANS, WEBSTER Primary Care Unavailable KRZYSZTOF, KRISTYN Admitting Unavailable KRZYSZTOF, KRISTYN Attending Unavailable EVANS, WEBSTER Primary Care Unavailable EVANS, WEBSTER Primary Care Unavailable EVANS, WEBSTER Primary Care Unavailable TRISTA, MARTHA Admitting Unavailable BARAGANADIRDEVIKA Attending Unavailable EVANS, WEBSTER Primary Care Unavailable DARLYNHENOK Attending Unavailable EVANS, WEBSTER Primary Care Unavailable KRZYSZTOF, KRISTYN Attending Unavailable EVANS, WEBSTER Primary Care Unavailable KRZYSZTOF, KRISTYN Attending Unavailable MERGY, ANTHONY K Referring Unavailable EVANS, WEBSTER Primary Care Unavailable EVANS, WEBSTER Primary Care Unavailable EVANS, WEBSTER Primary Care Unavailable MARIANA KING Referring Unavailable EVANS, WEBSTER Primary Care Unavailable MARIANA KING Referring Unavailable [...] Facility (20 sources) Amoxicillin Drug Allergy 0 [place], [place] (20 sources) fluticasone / salmeterol Drug Allergy 0 Intolerance [place], [place] (20 sources) Acetaminophen / oxyCODONE; Translations: [OXYCODONE-ACETAM INOPHEN] Drug Allergy 2 Itching [facility] Repository (9 sources) Ampicillin; Translations: [AMPICILLIN] Drug Allergy 4 Unknown [facility] (11 sources) Amoxicillin-Pot Clavulanate Drug Allergy 5 [facility] (1 source) FLUTICASONE PROPION-SALMETERO L; Translations: [FLUTICASONE PROPION-SALMETERO L] Propensity to adverse reactions to drug (disorder) 0 [facility] Repository Medications Current Medications Medication Drug Class(es) [...] for pain for up to 3 days. [id number] 200 actuat albuterol 0.09 mg/actuat metered dose [...] Start: 06-28-2022 take 2 tablets by mo [facility] twice daily, then take 1 tablet by [...] Comment on above: Take 1 tablet by [facility] three times daily. atorvastatin 80 mg oral [...] on above: Take 2 tablets by mo [facility] every 12 hours for 3 days, THEN [...] Comment on above: Take 1 tablet by [facility] every 12 hours for 7 days. 0.5 [...] for dry skin. Active lactobacillus rhamnosus gg [id number] unt oral capsule (2 sources) Start: 06-29-20 End: 07-29-19 23 take 1 capsule by mouth once daily lactobacillus rhamnosus (CULTURELLE) 10 billion cell capsule Take 1 capsule by mouth once daily. 30 capsule 0 06/29/2022 07/29/2022 Active Comment on above: Take 1 capsule by [facility] once daily. lidocaine 0.04 mg/mg medicated patch [...] 2259, Administer for dilation PROT[facility] FROM [facility] Start: 10-01-2024 End: 10-01-2024 PHENYLephrine 2.5 % 1 Drop ( AK-DILATE, KEL-SYNEPHRINE) Start: 10-01-2024 End: 10-01-2024 1 Drop, RIGHT EYE, DIRECT ED, Starting on Tue10/01/24 at 1030, Until Tue10/01/24 at 2229, Administer for dilation PROTECT FROM [facility] Start: 09-05-2024 End: 09-05-2024 PHENYLephrine 2.5 % 1 Drop ( AK-DILATE, KEL-SYNEPHRINE) Start: 09-05-2024 End: 09-05-2024 1 Drop, RIGHT EYE, DIRECT ED, Starting on Tue09/05/24 at 1030, Until Tue09/05/24 at 2229, Administer for dilation PROT[facility] FROM [facility] Start: 08-01-2024 End: [...] Drop ( AK-DILATE, KEL-SYNEPHRINE) polyethylene glycol 3350 74045 mg powder for oral solution (11 sources) [...] twenty-four hours 1,000 mg, Oral, Once, On [facility] 11/22/24 at 0830, For 1 dose, Preprocedure, Maximum dose of acetaminophen is 4000 mg from all sources in 24 hours. Do not administer if patient has taken tylenol Start: 08-03-2024 End: 08-16-2024 take 1 tablet by mouth every six hours as needed for pain and fever acetaminophen (Tylenol) tablet 650 mg Start: 07-17-2024 take 2 tablets by [facility] four times daily acetaminophen (Tylenol) 325 MG [...] sodium chloride 0.9 % 100 mL IVPB (Add-Ponderay) (2 sources) Start: End: take 3000 mg intravenously every six hours 3,000 mg, IntraVENous, at 200 mL/hr, Administer over 30 Minutes, Every 6 hours, First dose on Tue08/03/24 at 1200, For 18 doses, ADD-Ponderay bag, Suspected Indication (Select all that apply): [...] Anesthetic Start: 03-07-2020 End: 03-07-2020 lidocaine-EPINEPHrine 1 percent-1:[id number] injection 8 mL ergocalciferol 1.25 mg oral capsule (3 sources) Provitamin D2 Compound End: 07-05-2024 take 1 capsule by mouth every week ergocalciferol (Vitamin D2) 1.25 MG (88909 UT) capsule Take 1.25 mg by mouth [...] Start: 05-19-2023 take 1 puff(s) by mo [facility] once daily Trelegy Ellipta 100-62.5-25 MCG/ACT aerosol [...] pain (7-10), moderate pain (4-6), Starting on [facility] 07/05/24 at 1444 Start: 04-13-2024 End: [...] Comment on above: Take 1 tablet by [facility] twice daily before meals (0600/1600). prochlorperazine 5 [...] on Tue04/03/24 at 1820 sodium zirconium cyclosilicate 36505 mg powder for oral suspension (2 sources) [...] lower extremity (HCC) Take as directed by [facility] (90 tablets = 90 [...] lower extremity (HCC) Take as directed by [facility] (45 tablets= 30 day supply) 45 tablet 1 04/27/2024 Active Start: 04-09-2024 7.5 mg, Oral, Once Warfarin, On Maida 04/12/24 at 1700, For 1 dose Start: 04-07-2024 warfarin (Coum jay jay) 5 MG tablet Take 1 tablet (5mg) on 04/13 in the evening Take 1.5 tablets (7.5mg) on 04/14 Take 1 tablet (5mg) on 04/15 Follow up with [facility] pharmacy for further dosing 30 tablet [...] 05-29-202 5 Episodic Other aftercare (3 sources) terminal make up operator (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) 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 anticoagulants; Translations: [long-term (current) use of anticoagulants] Onset: 2 Episodic [...] sources) Long-term current use of anticoagulant; Translations: [terminal make up operator (current) use of anticoagulants] Onset: 0 03-07-2020 Episodic Other aftercare (1 source) Other predatory animal exterminator (current) drug therapy; Translations: [Other predatory animal exterminator (current) drug therapy] Onset: 5 Episodic Other [...] limited to breakdown of skin ([facility]) 12-05-2024 Unclassified (4 sources) PAD (peripheral artery disease) ([facility]) 12-05-2024 Viral infection (20 sources) Disease caused by 2019-nCoV; Translations: [COVID-19] Onset: 2 06-16-2022 Episodic Results Test Name Value Interpretation Reference Range Facility Prothrombin Time w/INRon INR Coag (PPP) [Relative time] 2.8 {INR} Normal [facility] Comment on above: Order Comment: 104-1 Performed By: #### L 300.3900 #### [facility] [address] [place], [address] PT Coag (PPP) [Time] 30.5 s High 11.7-14.9 [facility] Comment on above: Order Comment: 104-1 Performed By: #### L 300.3900 #### [facility] [address] [place], [address] Prothrombin Time w/INRon INR Coag (PPP) [Relative time] 2.5 {INR} Normal [facility] Comment on above: Order Comment: 104.1 Performed By: #### L 100.0500, L500.4050 #### [facility] [address] [place], [address] PT Coag (PPP) [Time] 27.1 s High 11.7-14.9 [facility] Comment on above: Order Comment: 104.1 Performed By: #### L 100.0500, L500.4050 #### [facility] [address] [place], [address] Prothrombin Time w/INRon INR Coag (PPP) [Relative time] 2.4 {INR} Normal [facility] Comment on above: Order Comment: DID Kareem MENDELDIANAKONRAD TWICE, BOTH TIMES GOT A 'NO CLOT DETECTED'MESSAGE, SO VA A VENOUS SAMPLE. SPOKE WITH NURSE TINEO Performed By: #### L 100.0500, L500.4050 #### [facility] [address] [place], [address] PT Coag (PPP) [Time] 26.9 s High 11.7-14.9 [facility] Comment on above: Order Comment: DID Kareem STRANEG TWICE, BOTH TIMES GOT A 'NO CLOT DETECTED'MESSAGE, SO VA A VENOUS SAMPLE. SPOKE WITH NURSE TINEO Performed By: #### L 100.0500, L500.4050 #### [facility] [address] [place], [address] Protime w/INR Fingerstickon 01-17-2025 INR Coag (PPP) [Relative time] 1.9 {INR} Normal [facility] Comment on above: Result Comment: Crit ical Value > 4.0 Performed By: #### L 9200.0000 #### [facility] [address] [place], [address] Protime Coagsen 20.8 SEC High 11.7-14.9 [facility] Comment on above: Performed By: #### L 9200.0000 #### [facility] [address] [place], [address] Protime w/INR Fingerstickon 01-16-2025 INR Coag (PPP) [Relative time] 1.5 {INR} Normal [facility] Comment on above: Result Comment: Crit ical Value > 4.0 Performed By: #### L 100.0500, L500.4050 #### [facility] [address] [place], [address] Protime Coagsen 17.2 SEC High 11.7-14.9 [facility] Comment on above: Performed By: #### L 100.0500, L500.4050 #### [facility] [address] [place], [address] Prothrombin Time w/INRon INR Coag (PPP) [Relative time] 1.2 {INR} Normal [facility] Comment on above: Performed By: #### L 300.3900 #### [facility] [address] [place], [address] PT Coag (PPP) [Time] 15.4 s High 11.7-14.9 [facility] Comment on above: Performed By: #### L 300.3900 #### [facility] [address] [place], [address] 36on 01-08-2025 36 Normal [facility] Basic Metabolic Profile (BMP )on 01-07-2025 BUN/CRE 17.7 RATIO Normal 10-20 [facility] Comment on above: Order Comment: 104.1 Performed By: #### L 100.0500, L500.4050 #### [facility] [address] [place], [address] Calcium [Mass/Vol] 9.1 mg/dL Normal 7.6-11.0 [facility] Comment on above: Order Comment: 104.1 Performed By: #### L 100.0500, L500.4050 #### [facility] [address] [place], [address] Chloride [Moles/Vol] 109 mmol/L High 98-108 [facility] Comment on above: Order Comment: 104.1 Performed By: #### L 100.0500, L500.4050 #### [facility] [address] [place], [address] CO2 [Moles/Vol] 19.7 mmol/L Low 21.0-32.0 [facility] Comment on above: Order Comment: 104.1 Performed By: #### L 100.0500, L500.4050 #### [facility] [address] [place], [address] Creatinine [Mass/Vol] 1.15 mg/dL Normal 0.70-1.20 [facility] Comment on above: Order Comment: 104.1 Performed By: #### L 100.0500, L500.4050 #### [facility] [address] [place], [address] GAP 10 Normal 5-15 [facility] Comment on above: Order Comment: 104.1 Performed By: #### L 100.0500, L500.4050 #### [facility] [address] [place], [address] GFR/1.73 sq M.predicted among non-blacks MDRD (S/P/Bld) [Vol rate/Area] 47 mL/min/{1.73_m2} Low >60 [facility] Comment on above: Order Comment: 104.1 Result Comment: mL/m in/1.73m2 CKD-EPI Creatinine Equation (2020) Performed By: #### L 100.0500, L500.4050 #### [facility] [address] [place], [address] Glucose [Mass/Vol] 87 mg/dL Normal 70-99 [facility] Comment on above: Order Comment: 104.1 Performed By: #### L 100.0500, L500.4050 #### [facility] [address] [place], [address] Potassium [Moles/Vol] 5.0 mmol/L Normal 3.3-5.1 [facility] Comment on above: Order Comment: 104.1 Performed By: #### L 100.0500, L500.4050 #### [facility] [address] [place], [address] Sodium [Moles/Vol] 138 mmol/L Normal 133-145 [facility] Comment on above: Order Comment: 104.1 Performed By: #### L 100.0500, [id number] #### [facility] [address] [place], [address] Urea nitrogen [Mass/Vol] 20 mg/dL High 4-19 [facility] Comment on above: Order Comment: 104.1 Performed By: #### L 100.0500, L500.4050 #### [facility] [address] [place], [address] CBC-Complete Blood Cnt No Di ffon 01-07-2025 Erythrocyte distribution width (RBC) [Ratio] 16.5 % High 11.6-14.6 [facility] Comment on above: Order Comment: 104.1 Performed By: #### L 100.0500, L500.4050 #### [facility] [address] [place], [address] Hematocrit (Bld) [Volume fraction] 30.4 % Low 37-47 [facility] Comment on above: Order Comment: 104.1 Performed By: #### L 100.0500, L500.4050 #### [facility] [address] [place], [address] Hemoglobin (Bld) [Mass/Vol] 9.8 g/dL Low 12.0-15.0 [facility] Comment on above: Order Comment: 104.1 Performed By: #### L 100.0500, L500.4050 #### [facility] [address] [place], [address] MCH (RBC) [Entitic mass] 29.9 pg Normal 27.0-32.0 [facility] Comment on above: Order Comment: 104.1 Performed By: #### L 100.0500, L500.4050 #### [facility] [address] [place], [address] MCHC (RBC) [Mass/Vol] 32.2 g/dL Normal 32-36 [facility] Comment on above: Order Comment: 104.1 Performed By: #### L 100.0500, L500.4050 #### [facility] [address] [place], [address] MCV (RBC) [Entitic vol] 92.7 fL Normal 81-99 [facility] Comment on above: Order Comment: 104.1 Performed By: #### L 100.0500, L500.4050 #### [facility] [address] [place], [address] Platelet mean volume (Bld) [Entitic vol] 10.0 fL Normal 6.2-12.0 [facility] Comment on above: Order Comment: 104.1 Performed By: #### L 100.0500, L500.4050 #### [facility] [address] [place], [address] Platelets (Bld) [#/Vol] 254 10*3/uL Normal 150-450 [facility] Comment on above: Order Comment: 104.1 Performed By: #### L 100.0500, L500.4050 #### [facility] [address] [place], [address] RBC (Bld) [#/Vol] 3.28 10*6/uL Low 4.2-5.4 [facility] Comment on above: Order Comment: 104.1 Performed By: #### L 100.0500, L500.4050 #### [facility] [address] [place], [address] RDW SD 55.9 fl High 35.1-43.9 [facility] Comment on above: Order Comment: 104.1 Performed By: #### L 100.0500, L500.4050 #### [facility] [address] [place], [address] WBC (Bld) [#/Vol] 4.5 10*3/uL Normal 4.4-11.0 [facility] Comment on above: Order Comment: 104.1 Performed By: #### L 100.0500, L500.4050 #### [facility] [address] [place], [address] 36on 01-04-2025 36 Normal [facility] 36 Normal [facility] Progress Noteon 12-24-2024 Progress Note Normal [facility] No Panel Informationon 12-13 Left MICHELLE 0.71 [facility] Left arm BP 121 mmHg [facility] Left Dist Outflow EDV 6.5 cm/s [facility] Left Dist Outflow PSV 51.5 cm/s [facility] Left dorsalis pedis BP 67 mmHg [facility] Left Graft 1 Proximal Popliteal Stent [facility] Left Inflow Artery EDV 8.5 cm/s [facility] Left Inflow Artery PSV 46.5 cm/s [facility] Left Mid Outflow EDV 6.5 cm/s [facility] Left Mid Outflow PSV 58.1 cm/s [facility] Left Outflow Vessel EDV 9.8 cm/s S [facility] Left Outflow Vessel PSV 89.9 cm/s S [facility] Left posterior tibial 94 mmHg [facility] Left Prox Outflow EDV 6.5 cm/s [facility] Left Prox Outflow PSV 51.5 cm/s [facility] Right MICHELLE 0.96 [facility] Right arm BP 133 mmHg [facility] Right YARITZA dist PSV 53.6 cm/s [facility] Right MANAGER SAFE dist PSV 144.6 cm/s [facility] Right MANAGER SAFE mid AP diameter 0.92 cm [facility] Right MANAGER SAFE mid TR diameter 0.89 cm [facility] Right MANAGER SAFE prox PSV 133.7 cm/s [facility] Right Dist Outflow EDV 0 cm/s [facility] Right Dist Outflow PSV 45.3 cm/s [facility] Right dorsalis pedis BP 107 mmHg S [facility] Right EIA dist PSV 144.6 cm/s [facility] Right Graft 1 Distal SFA Stent [facility] Right Inflow Artery EDV 4.6 cm/s S [facility] Right Inflow Artery PSV 100.7 cm/s S [facility] Right Mid Outflow EDV 2.3 cm/s [facility] Right Mid Outflow PSV 66.2 cm/s [facility] Right Outflow Vessel EDV 2.3 cm/s [facility] Right Outflow Vessel PSV 56.4 cm/s [facility] Right PFA AP diameter 0.59 cm [facility] Right PFA TR diameter 0.73 cm [...] PSV 68.6 cm/s [facility] Right HEALTH PHYSICS TECHNICIAN dist PSV 48.1 cm/s [facility] Right [...] Right SFA proximal TR diameter 0.61 cm [facility] Stents in SFA and popliteal artery [...] Progress Note Normal [facility] 36on 11-23-2024 36 Normal [facility] 36 Normal [facility] 36 Normal [facility] [id number] 11-22-2024 [id number] Normal [facility] Anesthesia Noteon 11-22-2024 Anesthesia Note Normal [facility] No Panel Informationon 11-22 There is no interpretation needed for this exam. IMAGING Nursing Noteon 11-22-2024 Nursing Note Patient arrived on unit. Name and date verified. Attached to monitors. Vital signs stable. Normal [facility] Op Noteon 11-22-2024 Op Note Normal [facility] Progress Noteon 11-22-2024 Progress Note POA called to bedsid e and discharge instructions reviewed. Groin site remains intact and LE distal pulses unchanged via assessment with doppler. 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 Made aware of patient's orders to lay flat until 1325. Daughter in law stated that she will call care facility later to make arrangements for transportation back. Normal [facility] Anesthesia Noteon 11-21-2024 Anesthesia Note Normal [facility] Basic Metabolic Profile (BMP )on 11-15-2024 BUN/CRE 18.3 RATIO Normal 10-20 [facility] Comment on above: Order Comment: 104-1 Performed By: #### L 300.3900 #### [facility] [address] [place], [address] Calcium [Mass/Vol] 9.0 mg/dL Normal 7.6-11.0 [facility] Comment on above: Order Comment: 104-1 Performed By: #### L 300.3900 #### [facility] [address] [place], [address] Chloride [Moles/Vol] 108 mmol/L Normal 98-108 [facility] Comment on above: Order Comment: 104-1 Performed By: #### L 300.3900 #### [facility] [address] [place], [address] CO2 [Moles/Vol] 22.1 mmol/L Normal 21.0-32.0 [facility] Comment on above: Order Comment: 104-1 Performed By: #### L 300.3900 #### [facility] [address] [place], [address] Creatinine [Mass/Vol] 1.03 mg/dL Normal 0.70-1.20 [facility] Comment on above: Order Comment: 104-1 Performed By: #### L 300.3900 #### [facility] [address] [place], [address] GAP 9 Normal 5-15 [facility] Comment on above: Order Comment: 104-1 Performed By: #### L 300.3900 #### [facility] [address] [place], [address] GFR/1.73 sq M.predicted among non-blacks MDRD (S/P/Bld) [Vol rate/Area] 53 mL/min/{1.73_m2} Low >60 [facility] Comment on above: Order Comment: 104- Result Comment: mL/m in/1.73m2 CKD-EPI Creatinine Equation (2020) Performed By: #### L 300.3900 #### [facility] [address] [place], [address] Glucose [Mass/Vol] 91 mg/dL Normal 70-99 [facility] Comment on above: Order Comment: 104-1 Performed By: #### L 300.3900 #### [facility] [address] [place], [address] Potassium [Moles/Vol] 4.8 mmol/L Normal 3.3-5.1 [facility] Comment on above: Order Comment: 104-1 Performed By: #### L 300.3900 #### [facility] [address] [place], [address] Sodium [Moles/Vol] 138 mmol/L Normal 133-145 [facility] Comment on above: Order Comment: 104-1 Performed By: #### L 300.3900 #### [facility] [address] [place], [address] Urea nitrogen [Mass/Vol] 19 mg/dL Normal 4-19 [facility] Comment on above: Order Comment: 104-1 Performed By: #### L 300.3900 #### [facility] [address] [place], [address] CBC W/Diff, Automatedon 05-0 1-202 Absolute Lymph 1.77 X10 3/uL Normal 0.83-4.51 [facility] Comment on above: Order Comment: 104-1 Performed By: #### L 100.0500, L500.4050 #### [facility] [address] [place], [address] Absolute Neut 3.2 X10 3/uL Normal 2.0-7.7 [facility] Comment on above: Order Comment: 104-1 Performed By: #### L 100.0500, L500.4050 #### [facility] [address] [place], [address] Basophils/100 WBC (Bld) 0.7 % Normal 0-1 [facility] Comment on above: Order Comment: 104-1 Performed By: #### L 100.0500, L500.4050 #### [facility] [address] [place], [address] Eosinophils/100 WBC (Bld) 2.9 % Normal 0-5 [facility] Comment on above: Order Comment: 104-1 Performed By: #### L 100.0500, L500.4050 #### [facility] [address] [place], [address] Erythrocyte distribution width (RBC) [Ratio] 18.8 % High 11.6-14.6 [facility] Comment on above: Order Comment: 104-1 Performed By: #### L 100.0500, L500.4050 #### [facility] [address] [place], [address] Hematocrit (Bld) [Volume fraction] 30.9 % Low 37-47 [facility] Comment on above: Order Comment: 104-1 Performed By: #### L 100.0500, L500.4050 #### [facility] [address] [place], [address] Hemoglobin (Bld) [Mass/Vol] 9.8 g/dL Low 12.0-15.0 [facility] Comment on above: Order Comment: 104-1 Performed By: #### L 100.0500, L500.4050 #### [facility] [address] [place], [address] IG% 0.200 Normal 0.0-0.9 [facility] Comment on above: Order Comment: 104-1 Result Comment: IG% - Immature Granulocytes (promyelocytes, myelocytes and metamyelocytes) > 1% indicates that a LEFT SHIFT is Present. Performed By: #### L 100.0500, L500.4050 #### [facility] [address] [place], [address] Lymphocytes/100 WBC (Bld) 30.3 % Normal 19-41 [facility] Comment on above: Order Comment: 104-1 Performed By: #### L 100.0500, L500.4050 #### [facility] [address] [place], [address] MCH (RBC) [Entitic mass] 28.4 pg Normal 27.0-32.0 [facility] Comment on above: Order Comment: 104-1 Performed By: #### L 100.0500, L500.4050 #### [facility] [address] [place], [address] MCHC (RBC) [Mass/Vol] 31.7 g/dL Low 32-36 [facility] Comment on above: Order Comment: 104-1 Performed By: #### L 100.0500, L500.4050 #### [facility] [address] [place], [address] MCV (RBC) [Entitic vol] 89.6 fL Normal 81-99 [facility] Comment on above: Order Comment: 104-1 Performed By: #### L 100.0500, L500.4050 #### [facility] [address] [place], [address] Monocytes/100 WBC (Bld) 11.3 % High 0-10 [facility] Comment on above: Order Comment: 104-1 Performed By: #### L 100.0500, L500.4050 #### [facility] [address] [place], [address] Neutrophils/100 WBC (Bld) 54.6 % Normal 47-70 [facility] Comment on above: Order Comment: 104-1 Performed By: #### L 100.0500, L500.4050 #### [facility] [address] [place], [address] Nucleated RBC (Bld) [#/Vol] 0 10*3/uL Normal 0-5 [facility] Comment on above: Order Comment: 104-1 Performed By: #### L 100.0500, L500.4050 #### [facility] [address] [place], [address] Platelet mean volume (Bld) [Entitic vol] 10.2 fL Normal 6.2-12.0 [facility] Comment on above: Order Comment: 104-1 Performed By: #### L 100.0500, L500.4050 #### [facility] [address] [place], [address] Platelets (Bld) [#/Vol] 303 10*3/uL Normal 150-450 [facility] Comment on above: Order Comment: 104-1 Performed By: #### L 100.0500, L500.4050 #### [facility] [address] [place], [address] RBC (Bld) [#/Vol] 3.45 10*6/uL Low 4.2-5.4 [facility] Comment on above: Order Comment: 104-1 Performed By: #### L 100.0500, L500.4050 #### [facility] [address] [place], [address] RDW SD 61.8 fl High 35.1-43.9 [facility] Comment on above: Order Comment: 104-1 Performed By: #### L 100.0500, L500.4050 #### [facility] [address] [place], [address] WBC (Bld) [#/Vol] 5.8 10*3/uL Normal 4.4-11.0 [facility] Comment on above: Order Comment: 104-1 Performed By: #### L 100.0500, L500.4050 #### [facility] [address] [place], [address] 36on 11-14-2024 36 Normal [facility] 36on 11-08-2024 36 Fidel called to state that she spoke with Mel and she would like to proceed with angio. Normal [facility] Progress Noteon 11-05-2024 Progress Note Normal [facility] Anion gap in Serum or Plasma Ordered By: Megan Montoya on 10-08-2024 Anion gap [Moles/Vol] 12 mmol/L 11-29 [facility] BUN/creatinine ratioOrdered By: Megan Montoya on 10-08-2024 Urea nitrogen/Creatinine [Mass ratio] 16.5 mg/mg - [facility] Basic Metabolic Profile (BMP )on 10-08-2024 BUN/CRE 16.5 RATIO Normal 05-06 [facility] Comment on above: Order Comment: 104.1 Performed By: #### L 100.0500, L500.4050 #### [facility] [address] [place], [address] Calcium [Mass/Vol] 9.0 mg/dL Normal 7.6-11.0 [facility] Comment on above: Order Comment: 104.1 Performed By: #### L 100.0500, L500.4050 #### [facility] [address] [place], [address] Chloride [Moles/Vol] 106 mmol/L Normal 98-108 [facility] Comment on above: Order Comment: 104.1 Performed By: #### L 100.0500, L500.4050 #### [facility] [address] [place], [address] CO2 [Moles/Vol] 20.0 mmol/L Low 21.0-32.0 [facility] Comment on above: Order Comment: 104.1 Performed By: #### L 100.0500, L500.4050 #### [facility] [address] [place], [address] Creatinine [Mass/Vol] 1.05 mg/dL Normal 0.70-1.20 [facility] Comment on above: Order Comment: 104.1 Performed By: #### L 100.0500, L500.4050 #### [facility] [address] [place], [address] GAP 12 Normal 5-15 [facility] Comment on above: Order Comment: 104.1 Performed By: #### L 100.0500, L500.4050 #### [facility] [address] [place], [address] GFR/1.73 sq M.predicted among non-blacks MDRD (S/P/Bld) [Vol rate/Area] 52 mL/min/{1.73_m2} Low >60 [facility] Comment on above: Order Comment: 104.1 Result Comment: mL/m in/1.73m2 CKD-EPI Creatinine Equation (2020) Performed By: #### L 100.0500, L500.4050 #### [facility] [address] [place], [address] Glucose [Mass/Vol] 98 mg/dL Normal 70-99 [facility] Comment on above: Order Comment: 104.1 Performed By: #### L 100.0500, L500.4050 #### [facility] [address] [place], [address] Potassium [Moles/Vol] 4.3 mmol/L Normal 3.3-5.1 [facility] Comment on above: Order Comment: 104.1 Result Comment: Hemo lysis present, Results??could be affected. ?? Performed By: #### L 100.0500, L500.4050 #### [facility] [address] [place], [address] Sodium [Moles/Vol] 137 mmol/L Normal 133-145 [facility] Comment on above: Order Comment: 104.1 Performed By: #### L 100.0500, L500.4050 #### [facility] [address] [place], [address] Urea nitrogen [Mass/Vol] 17 mg/dL Normal 4-19 [facility] Comment on above: Order Comment: 104.1 Performed By: #### L 100.0500, L500.4050 #### [facility] [address] [place], [address] CBC-Complete Blood Cnt No Di ffon 10-08-2024 Erythrocyte distribution width (RBC) [Ratio] 17.5 % High 11.6-14.6 [facility] Comment on above: Order Comment: 104.1 Performed By: #### L 100.0500, L500.4050 #### [facility] [address] [place], [address] Hematocrit (Bld) [Volume fraction] 30.4 % Low 37-47 [facility] Comment on above: Order Comment: 104.1 Performed By: #### L 100.0500, L500.4050 #### [facility] [address] [place], [address] Hemoglobin (Bld) [Mass/Vol] 9.6 g/dL Low 12.0-15.0 [facility] Comment on above: Order Comment: 104.1 Performed By: #### L 100.0500, L500.4050 #### [facility] [address] [place], [address] MCH (RBC) [Entitic mass] 27.4 pg Normal 27.0-32.0 [facility] Comment on above: Order Comment: 104.1 Performed By: #### L 100.0500, L500.4050 #### [facility] [address] [place], [address] MCHC (RBC) [Mass/Vol] 31.6 g/dL Low 32-36 [facility] Comment on above: Order Comment: 104.1 Performed By: #### L 100.0500, L500.4050 #### [facility] [address] [place], [address] MCV (RBC) [Entitic vol] 86.9 fL Normal 81-99 [facility] Comment on above: Order Comment: 104.1 Performed By: #### L 100.0500, L500.4050 #### [facility] [address] [place], [address] Platelet mean volume (Bld) [Entitic vol] 10.3 fL Normal 6.2-12.0 [facility] Comment on above: Order Comment: 104.1 Performed By: #### L 100.0500, L500.4050 #### [facility] [address] [place], [address] Platelets (Bld) [#/Vol] 408 10*3/uL Normal 150-450 [facility] Comment on above: Order Comment: 104.1 Performed By: #### L 100.0500, L500.4050 #### [facility] [address] [place], [address] RBC (Bld) [#/Vol] 3.50 10*6/uL Low 4.2-5.4 [facility] Comment on above: Order Comment: 104.1 Performed By: #### L 100.0500, L500.4050 #### [facility] [address] [place], [address] RDW SD 56.2 fl High 35.1-43.9 [facility] Comment on above: Order Comment: 104.1 Performed By: #### L 100.0500, L500.4050 #### [facility] [address] [place], [address] WBC (Bld) [#/Vol] 6.4 10*3/uL Normal 4.4-11.0 [facility] Comment on above: Order Comment: 104.1 Performed By: #### L 100.0500, L500.4050 #### [facility] [address] [place], [address] Carbon dioxide, total [Moles /volume] in Central venous bloodOrdered By: Megan Montoya on 10-08-2024 CO2 [Moles/Vol] 20.0 mmol/L Low 21.0-32.0 [facility] Chloride assayOrdered By: Johnathan Guzman on 10-08-2024 Chloride [Moles/Vol] 106 mmol/L 98-108 [facility] Erythrocyte distribution wid th ratioOrdered By: Megan Montoya on 10-08-2024 Erythrocyte distribution width (RBC) [Ratio] 17.5 % High 11.6-14.6 [facility] Erythrocyte distribution wid th standard deviationOrdered By: Megan Montoya on 10-08-2024 Erythrocyte distribution width (RBC) [Entitic vol] 56.2 fL High 35.1-43.9 [facility] GFR/1.73 sq M.predicted gricelda g non-blacks MDRD (S/P/Bld) [Vol rate/Area]Ordered By: Megan Montoya on 10-08-2024 Estimated GFR (MDRD) Non-Af Amer 52 Low >60 [facility] Comment on above: mL/min/1.73m2 CKD-EP I Creatinine Equation (2020) Hematocrit Auto (Bld) [Volum e fraction]Ordered By: Megan Montoya on 10-08-2024 Hematocrit (Bld) [Volume fraction] 30.4 % Low 37-47 [facility] Hemoglobin measurementOrdere d By: Megan Montoya on 10-08-2024 Hemoglobin (Bld) [Mass/Vol] 9.6 g/dL Low 12.0-15.0 [facility] MCV (mean corpuscular volume ) determinationOrdered By: Megan Montoya on 10-08-2024 MCV (RBC) [Entitic vol] 86.9 fL 81-99 [facility] Mean corpuscular hemoglobin (MCH) determinationOrdered By: Megan Montoya on 10-08-2024 MCH (RBC) [Entitic mass] 27.4 pg 27.0-32.0 [facility] Mean corpuscular hemoglobin concentration (MCHC) determinationOrdered By: Megan Montoya on 10-08-2024 MCHC (RBC) [Mass/Vol] 31.6 g/dL Low 32-36 [facility] Mean platelet volume determi nationOrdered By: Megan Montoya on 10-08-2024 Platelet mean volume (Bld) [Entitic vol] 10.3 fL 6.2-12.0 [facility] Platelet countOrdered By: Johnathan Guzman on 10-08-2024 Platelets (Bld) [#/Vol] 408 10*3/uL 150-450 [facility] Potassium (Unsp spec) [Mass/ Vol]Ordered By: Megan Montoya on 10-08-2024 Potassium [Moles/Vol] 4.3 mmol/L 3.3-5.1 [facility] Comment on above: Hemolysis present, R esults could be affected. RBC Auto (Bld) [#/Vol]Ordere d By: Megan Montoya on 10-08-2024 RBC (Bld) [#/Vol] 3.50 10*6/uL Low 4.2-5.4 [facility] Serum creatinine measurement (mass/volume)Ordered By: Megan Montoya on 10-08-2024 Creatinine [Mass/Vol] 1.05 mg/dL 0.70-1.20 [facility] Serum glucose measurement (m ass/volume)Ordered By: Megan Montoya on 10-08-2024 Glucose [Mass/Vol] 98 mg/dL 70-99 [facility] Serum or plasma calcium reyna urement (mass/volume)Ordered By: Megan Montoya on 10-08-2024 Calcium [Mass/Vol] 9.0 mg/dL 7.6-11.0 [facility] Serum or plasma urea nitroge n measurement (mass/volume)Ordered By: Megan Montoya on 10-08-2024 Urea nitrogen [Mass/Vol] 17 mg/dL 4-19 [facility] Sodium levelOrdered By: Juan C Montoya on 10-08-2024 Sodium [Moles/Vol] 137 mmol/L 133-145 [facility] White blood cell (WBC) count Ordered By: Megan Montoya on 10-08-2024 WBC (Bld) [#/Vol] 6.4 10*3/uL 4.4-11.0 [facility] BSCAN OD (RIGHT EYE)on 10-01 [facility] Radiology [facility]ative[facility] B[facility]/creatinine ratioOrdered By: Megan Montoya on 09-17-2024 Urea nitrogen/Creatinine [Mass ratio] 15.7 mg/mg 10-20 [facility] Basic Metabolic Profile (BMP )on 09-17-2024 Anion gap [Moles/Vol] 10 mmol/L Normal 5-15 [facility] Comment on above: Order Comment: 104.1 Performed By: #### L 500.2500 #### [facility] [address] [place], [address] BUN/CRE 15.7 RATIO Normal 10-20 [facility] Comment on above: Order Comment: 104.1 Performed By: #### L 500.2500 #### [facility] [address] [place], [address] Calcium [Mass/Vol] 9.0 mg/dL Normal 7.6-11.0 [facility] Comment on above: Order Comment: 104.1 Performed By: #### L 500.2500 #### [facility] [address] [place], [address] Chloride [Moles/Vol] 108 mmol/L Normal 96-108 [facility] Comment on above: Order Comment: 104.1 Performed By: #### L 500.2500 #### [facility] [address] [place], [address] CO2 [Moles/Vol] 21.6 mmol/L Low 22.0-29.0 [facility] Comment on above: Order Comment: 104.1 Performed By: #### L 500.2500 #### [facility] [address] [place], [address] Creatinine [Mass/Vol] 1.03 mg/dL Normal 0.70-1.20 [facility] Comment on above: Order Comment: 104.1 Performed By: #### L 500.2500 #### [facility] [address] [place], [address] GFR/1.73 sq M.predicted among non-blacks MDRD (S/P/Bld) [Vol rate/Area] 54 mL/min/{1.73_m2} Low >60 [facility] Comment on above: Order Comment: 104.1 Result Comment: mL/m in/1.73m2 CKD-EPI Creatinine Equation (2020) Performed By: #### L 500.2500 #### [facility] [address] [place], [address] Glucose [Mass/Vol] 90 mg/dL Normal 70-99 [facility] Comment on above: Order Comment: 104.1 Performed By: #### L 500.2500 #### [facility] [address] [place], [address] Potassium [Moles/Vol] 4.5 mmol/L Normal 3.3-5.1 [facility] Comment on above: Order Comment: 104.1 Performed By: #### L 500.2500 #### [facility] [address] [place], [address] Sodium [Moles/Vol] 140 mmol/L Normal 133-145 [facility] Comment on above: Order Comment: 104.1 Performed By: #### L 500.2500 #### [facility] [address] [place], [address] Urea nitrogen [Mass/Vol] 16 mg/dL Normal 4-19 [facility] Comment on above: Order Comment: 104.1 Performed By: #### L 500.2500 #### [facility] [address] [place], [address] Carbon dioxide measurementOr dered By: Megan Montoya on 09-17-2024 CO2 [Moles/Vol] 21.6 mmol/L Low 22.0-29.0 [facility] Chloride measurementOrdered By: Megan Montoya on 09-17-2024 Chloride [Moles/Vol] 108 mmol/L 96-108 [facility] GFR/1.73 sq M.predicted gricelda g non-blacks MDRD (S/P/Bld) [Vol rate/Area]Ordered By: Megan Montoya on 09-17-2024 Estimated GFR (MDRD) Non-Af Amer 54 Low >60 [facility] Comment on above: mL/min/1.73m2 CKD-EP I Creatinine Equation (2020) Serum creatinine measurement (mass/volume)Ordered By: Megan Montoya on 09-17-2024 Creatinine [Mass/Vol] 1.03 mg/dL 0.70-1.20 [facility] Serum glucose measurement (m ass/volume)Ordered By: Megan Montoya on 09-17-2024 Glucose [Mass/Vol] 90 mg/dL 70-99 [facility] Serum or plasma anion gap de termination (moles/volume)Ordered By: Megan Montoya on 09-17-2024 Anion gap [Moles/Vol] 10 mmol/L 5-15 [facility] Serum or plasma calcium reyna urement (mass/volume)Ordered By: Megan Montoya on 09-17-2024 Calcium [Mass/Vol] 9.0 mg/dL 7.6-11.0 [facility] Serum or plasma potassium me asurementOrdered By: Megan Montoya on 09-17-2024 Potassium [Moles/Vol] 4.5 mmol/L 3.3-5.1 [facility] Serum or plasma sodium measu rement (moles/volume)Ordered By: Megan Montoya on 09-17-2024 Sodium [Moles/Vol] 140 mmol/L 133-145 [facility] Serum or plasma urea nitroge n measurement (mass/volume)Ordered By: Megan Montoya on 09-17-2024 Urea nitrogen [Mass/Vol] 16 mg/dL 4-19 [facility] Basic Metabolic Profile (BMP )on 09-10-2024 BUN/CRE 17.9 RATIO Normal 10-20 [facility] Comment on above: Order Comment: 104.1 Performed By: #### L 100.0500, L500.2500 #### [facility] [address] [place], [address] CA,Total 9.0 mg/dL Normal 8.5-10.1 [facility] Comment on above: Order Comment: 104.1 Performed By: #### L 100.0500, L500.2500 #### [facility] [address] [place], [address] Chloride [Moles/Vol] 108 mmol/L High 98-107 [facility] Comment on above: Order Comment: 104.1 Performed By: #### L 100.0500, L500.2500 #### [facility] [address] [place], [address] CO2 [Moles/Vol] 24.0 mmol/L Normal 21.0-32.0 [facility] Comment on above: Order Comment: 104.1 Performed By: #### L 100.0500, L500.2500 #### [facility] [address] [place], [address] Creatinine [Mass/Vol] 1.23 mg/dL High 0.55-1.02 [facility] Comment on above: Order Comment: 104.1 Result Comment: The validity of the calculated GFR GFRAA in patients over 70 years has not been determined. Clinical correlation is essential. Performed By: #### L 100.0500, L500.2500 #### [facility] [address] [place], [address] EST GFR - AA 53 mL/min Low >60 [facility] Comment on above: Order Comment: 104.1 Result Comment: Afri can [place] GFR Calc Performed By: #### L 100.0500, L500.2500 #### [facility] [address] [place], [address] GAP 5 Normal 5-15 [facility] Comment on above: Order Comment: 104.1 Performed By: #### L 100.0500, L500.2500 #### [facility] [address] [place], [address] GFR/1.73 sq M.predicted among non-blacks MDRD (S/P/Bld) [Vol rate/Area] 44 mL/min/{1.73_m2} Low >60 [facility] Comment on above: Order Comment: 104.1 Result Comment: Non- GFR Calc Performed By: #### L 100.0500, L500.2500 #### [facility] [address] [place], [address] Glucose [Mass/Vol] 98 mg/dL Normal 74-106 [facility] Comment on above: Order Comment: 104.1 Performed By: #### L 100.0500, L500.2500 #### [facility] [address] [place], [address] Potassium [Moles/Vol] 4.5 mmol/L Normal 3.5-5.1 [facility] Comment on above: Order Comment: 104.1 Performed By: #### L 100.0500, L500.2500 #### [facility] [address] [place], [address] Sodium [Moles/Vol] 137 mmol/L Normal 136-145 [facility] Comment on above: Order Comment: 104.1 Performed By: #### L 100.0500, L500.2500 #### [facility] [address] [place], [address] Urea nitrogen [Mass/Vol] 22 mg/dL High 7-18 [facility] Comment on above: Order Comment: 104.1 Performed By: #### L 100.0500, L500.2500 #### [facility] [address] [place], [address] Blood urea nitrogen (BUN)/cr eatinine ratioOrdered By: Megan Montoya on 09-10-2024 Urea nitrogen/Creatinine [Mass ratio] 17.9 mg/mg 10-20 [facility] CBC-Complete Blood Cnt No Di ffon 09-10-2024 Erythrocyte distribution width (RBC) [Ratio] 17.8 % High 11.6-14.6 [facility] Comment on above: Order Comment: 104.1 Performed By: #### L 100.0500, L500.2500 #### [facility] [address] [place], [address] Hematocrit (Bld) [Volume fraction] 31.9 % Low 37-47 [facility] Comment on above: Order Comment: 104.1 Performed By: #### L 100.0500, L500.2500 #### [facility] [address] [place], [address] Hemoglobin (Bld) [Mass/Vol] 9.7 g/dL Low 12.0-15.0 [facility] Comment on above: Order Comment: 104.1 Performed By: #### L 100.0500, L500.2500 #### [facility] [address] [place], [address] MCH (RBC) [Entitic mass] 26.1 pg Low 27.0-32.0 [facility] Comment on above: Order Comment: 104.1 Performed By: #### L 100.0500, L500.2500 #### [facility] [address] [place], [address] MCHC (RBC) [Mass/Vol] 30.4 g/dL Low 32-36 [facility] Comment on above: Order Comment: 104.1 Performed By: #### L 100.0500, L500.2500 #### [facility] [address] [place], [address] MCV (RBC) [Entitic vol] 85.8 fL Normal 81-99 [facility] Comment on above: Order Comment: 104.1 Performed By: #### L 100.0500, L500.2500 #### [facility] [address] [place], [address] Platelet mean volume (Bld) [Entitic vol] 9.5 fL Normal 6.2-12.0 [facility] Comment on above: Order Comment: 104.1 Performed By: #### L 100.0500, L500.2500 #### [facility] [address] [place], [address] Platelets (Bld) [#/Vol] 485 10*3/uL High 150-450 [facility] Comment on above: Order Comment: 104.1 Performed By: #### L 100.0500, L500.2500 #### [facility] [address] [place], [address] RBC (Bld) [#/Vol] 3.72 10*6/uL Low 4.2-5.4 [facility] Comment on above: Order Comment: 104.1 Performed By: #### L 100.0500, L500.2500 #### [facility] [address] [place], [address] RDW SD 55.2 fl High 35.1-43.9 [facility] Comment on above: Order Comment: 104.1 Performed By: #### L 100.0500, L500.2500 #### [facility] [address] [place], [address] WBC (Bld) [#/Vol] 7.7 10*3/uL Normal 4.4-11.0 [facility] Comment on above: Order Comment: 104.1 Performed By: #### L 100.0500, L500.2500 #### [facility] [address] [place], [address] Carbon dioxide measurementOr dered By: Megan Montoya on 09-10-2024 CO2 [Moles/Vol] 24.0 mmol/L 21.0-32.0 [facility] Chloride measurementOrdered By: Megan Montoya on 09-10-2024 Chloride [Moles/Vol] 108 mmol/L High 98-107 [facility] Erythrocyte distribution wid th ratioOrdered By: Megan Montoya on 09-10-2024 Erythrocyte distribution width (RBC) [Ratio] 17.8 % High 11.6-14.6 [facility] Erythrocyte distribution wid th standard deviationOrdered By: Megan Montoya on 09-10-2024 Erythrocyte distribution width (RBC) [Entitic vol] 55.2 fL High 35.1-43.9 [facility] Estimated glomerular filtrat ion rate (GFR) AmericanOrdered By: Megan Montoya on 09-10-2024 Estimated GFR (MDRD) Amer 53 mL/min Low >60 [facility] Comment on above: GFR Calc Glomerular filtration rate ( GFR) estimationOrdered By: Megan Montoya on 09-10-2024 Estimated GFR (MDRD) Non-Af Amer 44 mL/min Low >60 [facility] Comment on above: Non- GFR Calc Glucose measurementOrdered B y: Megan Montoya on 09-10-2024 Glucose [Mass/Vol] 98 mg/dL 74-106 [facility] Hematocrit Auto (Bld) [Volum e fraction]Ordered By: Megan Montoya on 09-10-2024 Hematocrit (Bld) [Volume fraction] 31.9 % Low 37-47 [facility] Hemoglobin measurementOrdere d By: Megan Montoya on 09-10-2024 Hemoglobin (Bld) [Mass/Vol] 9.7 g/dL Low 12.0-15.0 [facility] MCV (mean corpuscular volume ) determinationOrdered By: Megan Montoya on 09-10-2024 MCV (RBC) [Entitic vol] 85.8 fL 81-99 [facility] Mean corpuscular hemoglobin (MCH) determinationOrdered By: Megan Montoya on 09-10-2024 MCH (RBC) [Entitic mass] 26.1 pg Low 27.0-32.0 [facility] Mean corpuscular hemoglobin concentration (MCHC) determinationOrdered By: Megan Montoya on 09-10-2024 MCHC (RBC) [Mass/Vol] 30.4 g/dL Low 32-36 [facility] Mean platelet volume determi nationOrdered By: Megan Montoya on 09-10-2024 Platelet mean volume (Bld) [Entitic vol] 9.5 fL 6.2-12.0 [facility] Platelet countOrdered By: Johnathan Guzman on 09-10-2024 Platelets (Bld) [#/Vol] 485 10*3/uL High 150-450 [facility] Potassium measurementOrdered By: Megan Montoya on 09-10-2024 Potassium [Moles/Vol] 4.5 mmol/L 3.5-5.1 [facility] RBC Auto (Bld) [#/Vol]Ordere d By: Megan Montoya on 02-24-2025 RBC (Bld) [#/Vol] 3.72 10*6/uL Low 4.2-5.4 [facility] Serum anion gap measurementO rdered By: Megan Montoya on 09-10-2024 Anion gap [Moles/Vol] 5 mmol/L 5-15 [facility] Serum or plasma calcium reyna urement (mass/volume)Ordered By: Megan Montoya on 09-10-2024 Calcium [Mass/Vol] 9.0 mg/dL 8.5-10.1 [facility] Serum or plasma creatinine m easurement (mass/volume)Ordered By: Megan Montoya on 09-10-2024 Creatinine [Mass/Vol] 1.23 mg/dL High 0.55-1.02 [facility] Comment on above: The validity of the calculated GFR & GFRAA in patients over 70 years has not been determined. Clinical correlation is essential. Serum or plasma urea nitroge n measurement (mass/volume)Ordered By: Megan Montoya on 09-10-2024 Urea nitrogen [Mass/Vol] 22 mg/dL High 7-18 [facility] Sodium levelOrdered By: Juan C Montoya on 09-10-2024 Sodium [Moles/Vol] 137 mmol/L 136-145 [facility] White blood cell (WBC) count Ordered By: Megan Montoya on 09-10-2024 WBC (Bld) [#/Vol] 7.7 10*3/uL 4.4-11.0 [facility] Urine Cultureon 09-06-2024 URC UNKNOWN METHOD OF COLLECTION Proteus mirabilis [place] Count 50,000-80,000 Klebsiella pneumoniae sp pneum Klebsiella [...] TMP SMX Islt AGATA <=20 S Normal [facility] Comment on above: Performed By: #### M 100.2200, L400.0001 #### [facility] [address] [place], [address] Urinalysis, Completeon 09-04 BACTERIA 4+ /hpf Normal None Seen [facility] Comment on above: Order Comment: UNKNO WN METHOD OF COLLECTION CLEAN CATCH Performed By: #### M 100.2200, L400.0001 #### [facility] [address] [place], [address] EPI,SQUAMOUS 10-25 SEEN Normal 5-10 [facility] Comment on above: Order Comment: UNKNO WN METHOD OF COLLECTION CLEAN CATCH Performed By: #### M 100.2200, L400.0001 #### [facility] [address] [place], [address] Mucus Ql (Urine sed) 1+ /hpf Normal [facility] Comment on above: Order Comment: UNKNO WN METHOD OF COLLECTION CLEAN CATCH Performed By: #### M 100.2200, L400.0001 #### [facility] [address] [place], [address] RBC 5-10 SEEN Normal 0-5 [facility] Comment on above: Order Comment: UNKNO WN METHOD OF COLLECTION CLEAN CATCH Performed By: #### M 100.2200, L400.0001 #### [facility] [address] [place], [address] WBC 50-100 SEEN Normal 0-5 [facility] Comment on above: Order Comment: UNKNO WN METHOD OF COLLECTION CLEAN CATCH Performed By: #### M 100.2200, L400.0001 #### [facility] [address] [place], [address] Basic Metabolic Profile (BMP )on 09-03-2024 BUN/CRE 20.7 RATIO High 10-20 [facility] Comment on above: Order Comment: 104-1 Performed By: #### L 100.0500, L500.4050 #### [facility] [address] [place], [address] CA,Total 9.4 mg/dL Normal 8.5-10.1 [facility] Comment on above: Order Comment: 104-1 Performed By: #### L 100.0500, L500.4050 #### [facility] [address] [place], [address] Chloride [Moles/Vol] 109 mmol/L High 98-107 [facility] Comment on above: Order Comment: 104-1 Performed By: #### L 100.0500, L500.4050 #### [facility] [address] [place], [address] CO2 [Moles/Vol] 21.0 mmol/L Normal 21.0-32.0 [facility] Comment on above: Order Comment: 104-1 Performed By: #### L 100.0500, L500.4050 #### [facility] [address] [place], [address] Creatinine [Mass/Vol] 0.92 mg/dL Normal 0.55-1.02 [facility] Comment on above: Order Comment: 104-1 Result Comment: The validity of the calculated GFR GFRAA in patients over 70 years has not been determined. Clinical correlation is essential. Performed By: #### L 100.0500, L500.4050 #### [facility] [address] [place], [address] EST GFR - AA 75 mL/min Normal >60 [facility] Comment on above: Order Comment: 104-1 Result Comment: Afri can [place] GFR Calc Performed By: #### L 100.0500, L500.4050 #### [facility] [address] [place], [address] GAP 9 Normal 5-15 [facility] Comment on above: Order Comment: 104-1 Performed By: #### L 100.0500, L500.4050 #### [facility] [address] [place], [address] GFR/1.73 sq M.predicted among non-blacks MDRD (S/P/Bld) [Vol rate/Area] 62 mL/min/{1.73_m2} Normal >60 [facility] Comment on above: Order Comment: 104-1 Result Comment: Non- GFR Calc Performed By: #### L 100.0500, L500.4050 #### [facility] [address] [place], [address] Glucose [Mass/Vol] 115 mg/dL High 74-106 [facility] Comment on above: Order Comment: 104-1 Result Comment: Fast ing Glucose result from 100 to 125 mg/dL suggests IMPAIRED HOMEOSTASIS per A.D.A. criteria. Performed By: #### L 100.0500, L500.4050 #### [facility] [address] [place], [address] Potassium [Moles/Vol] 4.4 mmol/L Normal 3.5-5.1 [facility] Comment on above: Order Comment: 104-1 Performed By: #### L 100.0500, L500.4050 #### [facility] [address] [place], [address] Sodium [Moles/Vol] 139 mmol/L Normal 136-145 [facility] Comment on above: Order Comment: 104-1 Performed By: #### L 100.0500, L500.4050 #### [facility] [address] [place], [address] Urea nitrogen [Mass/Vol] 19 mg/dL High 7-18 [facility] Comment on above: Order Comment: 104-1 Performed By: #### L 100.0500, L500.4050 #### [facility] [address] [place], [address] Bilirubin Test strip Ql (U)O rdered By: Megan Montoya on 09-03-2024 Bilirubin Ql (U) Negative Negative [facility] Blood urea nitrogen (BUN)/cr eatinine ratioOrdered By: Megan Montoya on 09-03-2024 Urea nitrogen/Creatinine [Mass ratio] 20.7 mg/mg High 10-20 [facility] CBC-Complete Blood Cnt No Di ffon 09-03-2024 Erythrocyte distribution width (RBC) [Ratio] 17.9 % High 11.6-14.6 [facility] Comment on above: Order Comment: 104-1 Performed By: #### L 100.0500, L500.4050 #### [facility] [address] [place], [address] Hematocrit (Bld) [Volume fraction] 30.8 % Low 37-47 [facility] Comment on above: Order Comment: 104-1 Performed By: #### L 100.0500, L500.4050 #### [facility] [address] [place], [address] Hemoglobin (Bld) [Mass/Vol] 9.5 g/dL Low 12.0-15.0 [facility] Comment on above: Order Comment: 104-1 Performed By: #### L 100.0500, L500.4050 #### [facility] [address] [place], [address] MCH (RBC) [Entitic mass] 25.7 pg Low 27.0-32.0 [facility] Comment on above: Order Comment: 104-1 Performed By: #### L 100.0500, L500.4050 #### [facility] [address] [place], [address] MCHC (RBC) [Mass/Vol] 30.8 g/dL Low 32-36 [facility] Comment on above: Order Comment: 104-1 Performed By: #### L 100.0500, L500.4050 #### [facility] [address] [place], [address] MCV (RBC) [Entitic vol] 83.5 fL Normal 81-99 [facility] Comment on above: Order Comment: 104-1 Performed By: #### L 100.0500, L500.4050 #### [facility] [address] [place], [address] Platelet mean volume (Bld) [Entitic vol] 10.2 fL Normal 6.2-12.0 [facility] Comment on above: Order Comment: 104-1 Performed By: #### L 100.0500, L500.4050 #### [facility] [address] [place], [address] Platelets (Bld) [#/Vol] 431 10*3/uL Normal 150-450 [facility] Comment on above: Order Comment: 104-1 Performed By: #### L 100.0500, L500.4050 #### [facility] [address] [place], [address] RBC (Bld) [#/Vol] 3.69 10*6/uL Low 4.2-5.4 [facility] Comment on above: Order Comment: 104-1 Performed By: #### L 100.0500, L500.4050 #### [facility] [address] [place], [address] RDW SD 54.3 fl High 35.1-43.9 [facility] Comment on above: Order Comment: 104-1 Performed By: #### L 100.0500, L500.4050 #### [facility] [address] [place], [address] WBC (Bld) [#/Vol] 10.6 10*3/uL Normal 4.4-11.0 [facility] Comment on above: Order Comment: 104-1 Performed By: #### L 100.0500, L500.4050 #### [facility] [address] [place], [address] Carbon dioxide measurementOr dered By: Megan Montoya on 09-03-2024 CO2 [Moles/Vol] 21.0 mmol/L 21.0-32.0 [facility] Chloride measurementOrdered By: Megan Montoya on 09-03-2024 Chloride [Moles/Vol] 109 mmol/L High 98-107 [facility] Epithelial cells.squamous LM Ql (Urine sed)Ordered By: Megan Montoya on 09-03-2024 Epithelial cells.squamous LM.HPF (Urine sed) [#/Area] 10 /[HPF] 5-10 [facility] Erythrocyte distribution wid th ratioOrdered By: Megan Montoya on 09-03-2024 Erythrocyte distribution width (RBC) [Ratio] 17.9 % High 11.6-14.6 [facility] Erythrocyte distribution wid th standard deviationOrdered By: Megan Montoya on 09-03-2024 Erythrocyte distribution width (RBC) [Entitic vol] 54.3 fL High 35.1-43.9 [facility] Estimated glomerular filtrat ion rate (GFR) AmericanOrdered By: Megan Montoya on 09-03-2024 Estimated GFR (MDRD) Amer 75 mL/min >60 [facility] Comment on above: GFR Calc Glomerular filtration rate ( GFR) estimationOrdered By: Megan Montoya on 09-03-2024 Estimated GFR (MDRD) Non-Af Amer 62 mL/min >60 [facility] Comment on above: Non- GFR Calc Glucose Ql (U)Ordered By: Johnathan Guzman on 09-03-2024 Urine Glucose (UA) Normal mg/dl Normal [facility] Glucose measurementOrdered B y: Megan Montoya on 09-03-2024 Glucose [Mass/Vol] 115 mg/dL High 74-106 [facility] Comment on above: Fasting Glucose resu lt from 100 to 125 mg/dL suggests IMPAIRED HOMEOSTASIS per A.D.A. criteria. Hematocrit Auto (Bld) [Volum e fraction]Ordered By: Megan Montoya on 09-03-2024 Hematocrit (Bld) [Volume fraction] 30.8 % Low 37-47 [facility] Hemoglobin measurementOrdere d By: Megan Montoya on 09-03-2024 Hemoglobin (Bld) [Mass/Vol] 9.5 g/dL Low 12.0-15.0 [facility] Ketones Test strip Ql (U)Ord ered By: Megan Montoya on 09-03-2024 Ketones Ql (U) 5 mg/dl High Negative [facility] MCV (mean corpuscular volume ) determinationOrdered By: Megan Montoya on 09-03-2024 MCV (RBC) [Entitic vol] 83.5 fL 81-99 [facility] Mean corpuscular hemoglobin (MCH) determinationOrdered By: Megan Montoya on 09-03-2024 MCH (RBC) [Entitic mass] 25.7 pg Low 27.0-32.0 [facility] Mean corpuscular hemoglobin concentration (MCHC) determinationOrdered By: Megan Montoya on 09-03-2024 MCHC (RBC) [Mass/Vol] 30.8 g/dL Low 32-36 [facility] Mean platelet volume determi nationOrdered By: Megan Montoya on 09-03-2024 Platelet mean volume (Bld) [Entitic vol] 10.2 fL 6.2-12.0 [facility] Microscopic analysis of urin e for red blood cells (RBC)Ordered By: Megan Montoya on 09-03-2024 Urine RBC 5-10 SEEN /hpf 0-5 [facility] Mucus LM Ql (Urine sed)Order ed By: Megan Montoya on 09-03-2024 Mucus Ql (Urine sed) 1+ /hpf [facility] Nitrite Test strip Ql (U)Ord ered By: Megan Montoya on 09-03-2024 Nitrite Ql (U) Positive High Negative [facility] Platelet countOrdered By: Johnathan Guzman on 09-03-2024 Platelets (Bld) [#/Vol] 431 10*3/uL 150-450 [facility] Potassium measurementOrdered By: Megan Montoya on 09-03-2024 Potassium [Moles/Vol] 4.4 mmol/L 3.5-5.1 [facility] Protein Test strip Ql (U)Ord ered By: Megan Montoya on 09-03-2024 Protein Ql (U) 100 mg/dl High Negative [facility] RBC Auto (Bld) [#/Vol]Ordere d By: Megan Montoya on 09-03-2024 RBC (Bld) [#/Vol] 3.69 10*6/uL Low 4.2-5.4 [facility] Serum anion gap measurementO rdered By: Megan Montoya on 09-03-2024 Anion gap [Moles/Vol] 9 mmol/L 5-15 [facility] Serum or plasma calcium reyna urement (mass/volume)Ordered By: Megan Montoya on 09-03-2024 Calcium [Mass/Vol] 9.4 mg/dL 8.5-10.1 [facility] Serum or plasma creatinine m easurement (mass/volume)Ordered By: Megan Montoya on 09-03-2024 Creatinine [Mass/Vol] 0.92 mg/dL 0.55-1.02 [facility] Comment on above: The validity of the calculated GFR & GFRAA in patients over 70 years has not been determined. Clinical correlation is essential. Serum or plasma urea nitroge n measurement (mass/volume)Ordered By: Megan Montoya on 09-03-2024 Urea nitrogen [Mass/Vol] 19 mg/dL High 7-18 [facility] Sodium levelOrdered By: Juan C Montoya on 09-03-2024 Sodium [Moles/Vol] 139 mmol/L 136-145 [facility] Urine blood detectionOrdered By: Megan Montoya on 09-03-2024 Urine Occult Blood 150 /ul High Negative [facility] Urine clarityOrdered By: Pola Montoya on 09-03-2024 Clarity (U) Cloudy Clear [facility] Urine color determinationOrd ered By: Megan Montoya on 09-03-2024 Color (U) Yellow Yellow [facility] Urine cultureOrdered By: Pola Montoya on 09-03-2024 Bacteria identified Cx Nom (U) Proteus mirabilis Abnormal [facility] Bacteria identified Cx Nom (U) Klebsiella pneumoniae sp pneum Abnormal [facility] Bacteria identified Cx Nom (U) Proteus mirabilis Abnormal [facility] Bacteria identified Cx Nom (U) Klebsiella pneumoniae sp pneum Abnormal [facility] Urine leukocyte esterase det ection by dipstickOrdered By: Megan Montoya on 09-03-2024 Leukocyte esterase Test strip Ql (U) 500 /ul High Negative [facility] Urine pHOrdered By: Megan jimenez on 09-03-2024 pH (U) 6.0 [pH] 5.0 - 8.0 [facility] Urine sediment bacteria coun t by microscopy (number/high power field)Ordered By: Megan Montoya on 09-03-2024 Bacteria LM.HPF (Urine sed) [#/Area] 4 /[HPF] None Seen [facility] Urine specific gravity measu rementOrdered By: Megan Montoay on 09-03-2024 Specific gravity (U) [Rel density] 1.020 1.002-1.030 [facility] Urobilinogen Ql (U)Ordered B y: Megan Montoya on 09-03-2024 Urine Urobilinogen Normal mg/dl Normal [facility] White blood cell (WBC) count Ordered By: Megan Montoya on 09-03-2024 WBC (Bld) [#/Vol] 10.6 10*3/uL 4.4-11.0 [facility] White blood cell countOrdere d By: Megan Montoya on 09-03-2024 Urine WBC 50-100 SEEN /hpf 0-5 [facility] [id number] 08-27-2024 [id number] Patient Choice Patient Name: MEL POP Date of : 1940 Normal [facility] Progress Noteon 08-22-2024 Progress Note Normal [facility] Albumin to globulin ratioOrd ered By: Megan Montoya on 08-20-2024 Albumin/Globulin [Mass ratio] 0.7 {ratio} Low 0.9-2.4 [facility] Bilirubin, totalOrdered By: Megan Montoya on 08-20-2024 Bilirubin [Mass/Vol] 0.60 mg/dL 0.20-1.00 [facility] Comment on above: For patients on eltr ombopag therapy, use of Dimension [place] TBIL is not recommended. Blood urea nitrogen (BUN)/cr eatinine ratioOrdered By: Megan Mnotoya on 08-20-2024 Urea nitrogen/Creatinine [Mass ratio] 11.2 mg/mg 10-20 [facility] CBC-Complete Blood Cnt No Di ffon 08-20-2024 Erythrocyte distribution width (RBC) [Ratio] 19.2 % High 11.6-14.6 [facility] Comment on above: Performed By: #### L 100.0500, L500.4050 #### [facility] Laboratory [address] [place], [address] Hematocrit (Bld) [Volume fraction] 33.4 % Low 37-47 [facility] Comment on above: Performed By: #### L 100.0500, L500.4050 #### [facility] Laboratory [address] [place], [address] Hemoglobin (Bld) [Mass/Vol] 10.4 g/dL Low 12.0-15.0 [facility] Comment on above: Performed By: #### L 100.0500, L500.4050 #### [facility] Laboratory [address] [place], [address] MCH (RBC) [Entitic mass] 26.3 pg Low 27.0-32.0 [facility] Comment on above: Performed By: #### L 100.0500, L500.4050 #### [facility] Laboratory [address] [place], [address] MCHC (RBC) [Mass/Vol] 31.1 g/dL Low 32-36 [facility] Comment on above: Performed By: #### L 100.0500, L500.4050 #### [facility] Laboratory [address] [place], [address] MCV (RBC) [Entitic vol] 84.6 fL Normal 81-99 [facility] Comment on above: Performed By: #### L 100.0500, L500.4050 #### [facility] Laboratory [address] [place], [address] Platelet mean volume (Bld) [Entitic vol] 9.7 fL Normal 6.2-12.0 [facility] Comment on above: Performed By: #### L 100.0500, L500.4050 #### [facility] Laboratory [address] [place], [address] Platelets (Bld) [#/Vol] 405 10*3/uL Normal 150-450 [facility] Comment on above: Performed By: #### L 100.0500, L500.4050 #### [facility] Laboratory [address] [place], [address] RBC (Bld) [#/Vol] 3.95 10*6/uL Low 4.2-5.4 [facility] Comment on above: Performed By: #### L 100.0500, L500.4050 #### [facility] Laboratory [address] [place], [address] RDW SD 58.9 fl High 35.1-43.9 [facility] Comment on above: Performed By: #### L 100.0500, L500.4050 #### [facility] [address] [place], [address] WBC (Bld) [#/Vol] 5.9 10*3/uL Normal 4.4-11.0 [facility] Comment on above: Performed By: #### L 100.0500, L500.4050 #### [facility] Laboratory [address] [place], [address] Carbon dioxide measurementOr dered By: Megan Montoya on 08-20-2024 CO2 [Moles/Vol] 22.0 mmol/L 21.0-32.0 [facility] Chloride measurementOrdered By: Megan Montoya on 08-20-2024 Chloride [Moles/Vol] 109 mmol/L High 98-107 [facility] Comprehensive Metabolic Prof ilon 08-20-2024 Albumin [Mass/Vol] 2.7 g/dL Low 3.2-5.0 [facility] Comment on above: Performed By: #### L 100.0500, L500.4050 #### [facility] Laboratory [address] [place], [address] Albumin/Globulin [Mass ratio] 0.7 {ratio} Low 0.9-2.4 [facility] Comment on above: Performed By: #### L 100.0500, L500.4050 #### [facility] Laboratory [address] [place], [address] ALK P 117 U/L Normal 45-117 [facility] Comment on above: Performed By: #### L 100.0500, L500.4050 #### [facility] Laboratory [address] [place], [address] ALT [Catalytic activity/Vol] 18 U/L Normal 13-56 [facility] Comment on above: Performed By: #### L 100.0500, L500.4050 #### [facility] Laboratory [address] [place], [address] AST [Catalytic activity/Vol] 18 U/L Normal 15-37 [facility] Comment on above: Result Comment: Slig ht Hemolysis, Result may be falsely increased. Performed By: #### L 100.0500, L500.4050 #### [facility] Laboratory [address] [place], [address] Bilirubin [Mass/Vol] 0.60 mg/dL Normal 0.20-1.00 [facility] Comment on above: Result Comment: For patients on eltrombopag therapy, use of Dimension [place] TBIL is not recommended. Performed By: #### L 100.0500, L500.4050 #### [facility] Laboratory [address] [place], [address] BUN/CRE 11.2 RATIO Normal 10-20 [facility] Comment on above: Performed By: #### L 100.0500, L500.4050 #### [facility] Laboratory [address] [place], [address] CA,Total 9.0 mg/dL Normal 8.5-10.1 [facility] Comment on above: Performed By: #### L 100.0500, L500.4050 #### [facility] Laboratory [address] [place], [address] Chloride [Moles/Vol] 109 mmol/L High 98-107 [facility] Comment on above: Performed By: #### L 100.0500, L500.4050 #### [facility] Laboratory [address] [place], [address] CO2 [Moles/Vol] 22.0 mmol/L Normal 21.0-32.0 [facility] Comment on above: Performed By: #### L 100.0500, L500.4050 #### [facility] Laboratory [address] [place], [address] Creatinine [Mass/Vol] 0.98 mg/dL Normal 0.55-1.02 [facility] Comment on above: Result Comment: The validity of the calculated GFR GFRAA in patients over 70 years has not been determined. Clinical correlation is essential. Performed By: #### L 100.0500, L500.4050 #### [facility] Laboratory [address] [place], [address] EST GFR - AA 69 mL/min Normal >60 [facility] Comment on above: Result Comment: Afri can [place] GFR Calc Performed By: #### L 100.0500, L500.4050 #### [facility] Laboratory [address] [place], [address] GAP 7 Normal 5-15 [facility] Comment on above: Performed By: #### L 100.0500, L500.4050 #### [facility] Laboratory [address] [place], [address] GFR/1.73 sq M.predicted among non-blacks MDRD (S/P/Bld) [Vol rate/Area] 57 mL/min/{1.73_m2} Low >60 [facility] Comment on above: Result Comment: Non- GFR Calc Performed By: #### L 100.0500, L500.4050 #### [facility] Laboratory [address] [place], [address] Globulin (S) [Mass/Vol] 4.1 g/dL Normal 2.2-4.2 [facility] Comment on above: Performed By: #### L 100.0500, L500.4050 #### [facility] Laboratory [address] [place], [address] Glucose [Mass/Vol] 97 mg/dL Normal 74-106 [facility] Comment on above: Performed By: #### L 100.0500, L500.4050 #### [facility] Laboratory [address] [place], [address] Potassium [Moles/Vol] 4.2 mmol/L Normal 3.5-5.1 [facility] Comment on above: Result Comment: Slig ht Hemolysis, Result may be falsely increased. Performed By: #### L 100.0500, L500.4050 #### [facility] Laboratory [address] [place], [address] Sodium [Moles/Vol] 138 mmol/L Normal 136-145 [facility] Comment on above: Performed By: #### L 100.0500, L500.4050 #### [facility] Laboratory [address] [place], [address] T PROT 6.8 g/dL Normal 6.4-8.2 [facility] Comment on above: Performed By: #### L 100.0500, L500.4050 #### [facility] Laboratory [address] [place], [address] Urea nitrogen [Mass/Vol] 11 mg/dL Normal 7-18 [facility] Comment on above: Performed By: #### L 100.0500, L500.4050 #### [facility] Laboratory [address] [place], [place], [address] Erythrocyte distribution wid th ratioOrdered By: Megan Montoya on 08-20-2024 Erythrocyte distribution width (RBC) [Ratio] 19.2 % High 11.6-14.6 [facility] Erythrocyte distribution wid th standard deviationOrdered By: Megan Montoya on 08-20-2024 Erythrocyte distribution width (RBC) [Entitic vol] 58.9 fL High 35.1-43.9 [facility] Estimated glomerular filtrat ion rate (GFR) AmericanOrdered By: Megan Montoya on 08-20-2024 Estimated GFR (MDRD) Amer 69 mL/min >60 [facility] Comment on above: GFR Calc Glomerular filtration rate ( GFR) estimationOrdered By: Megan Montoya on 08-20-2024 Estimated GFR (MDRD) Non-Af Amer 57 mL/min Low >60 [facility] Comment on above: Non- GFR Calc Glucose measurementOrdered B y: Megan Montoya on 08-20-2024 Glucose [Mass/Vol] 97 mg/dL 74-106 [facility] Hematocrit Auto (Bld) [Volum e fraction]Ordered By: Megan Montoya on 08-20-2024 Hematocrit (Bld) [Volume fraction] 33.4 % Low 37-47 [facility] Hemoglobin measurementOrdere d By: Megan Montoya on 08-20-2024 Hemoglobin (Bld) [Mass/Vol] 10.4 g/dL Low 12.0-15.0 [facility] Laboratory - Chemistry and C hemistry - challengeOrdered By: Megan Montoya on 08-20-2024 AST [Catalytic activity/Vol] 18 U/L 15-37 [facility] Comment on above: Slight Hemolysis, Re sult may be falsely increased. MCV (mean corpuscular volume ) determinationOrdered By: Megan Montoya on 08-20-2024 MCV (RBC) [Entitic vol] 84.6 fL 81-99 [facility] Mean corpuscular hemoglobin (MCH) determinationOrdered By: Megan Montoya on 08-20-2024 MCH (RBC) [Entitic mass] 26.3 pg Low 27.0-32.0 [facility] Mean corpuscular hemoglobin concentration (MCHC) determinationOrdered By: Megan Montoya on 08-20-2024 MCHC (RBC) [Mass/Vol] 31.1 g/dL Low 32-36 [facility] Mean platelet volume determi nationOrdered By: Megan Montoya on 08-20-2024 Platelet mean volume (Bld) [Entitic vol] 9.7 fL 6.2-12.0 [facility] Platelet countOrdered By: Johnathan Guzman on 08-20-2024 Platelets (Bld) [#/Vol] 405 10*3/uL 150-450 [facility] Potassium measurementOrdered By: Megan Montoya on 08-20-2024 Potassium [Moles/Vol] 4.2 mmol/L 3.5-5.1 [facility] Comment on above: Slight Hemolysis, Re sult may be falsely increased. RBC Auto (Bld) [#/Vol]Ordere d By: Meagn Montoya on 08-20-2024 RBC (Bld) [#/Vol] 3.95 10*6/uL Low 4.2-5.4 [facility] Serum anion gap measurementO rdered By: Megan Montoya on 08-20-2024 Anion gap [Moles/Vol] 7 mmol/L 5-15 [facility] Serum globulin measurementOr dered By: Megan Montoya on 08-20-2024 Globulin (S) [Mass/Vol] 4.1 g/dL 2.2-4.2 [facility] Serum or plasma alanine hinojosa otransferase (ALT) measurementOrdered By: Megan Montoya on 08-20-2024 ALT [Catalytic activity/Vol] 18 U/L 13-56 [facility] Serum or plasma albumin reyna urement (mass/volume)Ordered By: Megan Montoya on 08-20-2024 Albumin [Mass/Vol] 2.7 g/dL Low 3.2-5.0 [facility] Serum or plasma alkaline silvia sphatase measurementOrdered By: Megan Montoya on 08-20-2024 ALP [Catalytic activity/Vol] 117 U/L 45-117 [facility] Serum or plasma calcium reyna urement (mass/volume)Ordered By: Megan Montoya on 08-20-2024 Calcium [Mass/Vol] 9.0 mg/dL 8.5-10.1 [facility] Serum or plasma creatinine m easurement (mass/volume)Ordered By: Megan Montoya on 08-20-2024 Creatinine [Mass/Vol] 0.98 mg/dL 0.55-1.02 [facility] Comment on above: The validity of the calculated GFR & GFRAA in patients over 70 years has not been determined. Clinical correlation is essential. Serum or plasma urea nitroge n measurement (mass/volume)Ordered By: Megan Montoya on 08-20-2024 Urea nitrogen [Mass/Vol] 11 mg/dL 7-18 [facility] Sodium levelOrdered By: Juan C Montoya on 08-20-2024 Sodium [Moles/Vol] 138 mmol/L 136-145 [facility] Total proteinOrdered By: Pola Montoya on 08-20-2024 Protein [Mass/Vol] 6.8 g/dL 6.4-8.2 [facility] White blood cell (WBC) count Ordered By: Megan Montoya on 08-20-2024 WBC (Bld) [#/Vol] 5.9 10*3/uL 4.4-11.0 [facility] [id number] 08-16-2024 [id number] Normal [facility] [id number] Normal [facility] [id number] MAR & Discharge med list transmitted to [facility] via Careport per TCC request. Electronically signed by JESSICA Leone Normal [facility] [id number] Normal [facility] Laboratory - Chemistry and C hemistry - challengeon 08-16-2024 Glucose [Mass/Vol] 120 mg/dL High 70 - 100 mg/dL [facility] No Panel Informationon 08-16 Interpretation and review of laboratory results Abnormal [facility] Performed by: [facility], [address] [place] [address], [facility] [address] CLIA ID: [id number] [facility] Nursing Noteon 08-16-2024 Nursing Note Patient picked up fo r transfer to [facility] by stretcher. Report already called to GENET Garcia. Normal [facility] Nursing Note Telephone report erin led to GENET Garcia at [facility]. Normal [facility] Progress Noteon 08-16-2024 Progress Note [facility] 30on 08-15-2024 30 Normal [facility] [id number] 08-15-2024 [id number] Authorization is pending with [facility]. Ref# [id number] to be DC'd to [facility]. Dtr Fidel Sharma. CM to follow. Normal [facility] Progress Noteon 08-15-2024 Progress Note [facility] 30on 08-14-2024 30 Normal [facility] [id number] 08-14-2024 [id number] Normal [facility] Progress Noteon 08-14-2024 Progress Note [facility] Progress Note [facility] Progress Note Normal [facility] 30on 08-13-2024 30 Normal [facility] 30 Normal [facility] [id number] 08-13-2024 [id number] Normal [facility] Progress Noteon 08-13-2024 Progress Note [facility] Progress Note [facility] 08-12-2024 30 Normal [facility] Progress Noteon 08-12-2024 Progress Note [facility] 08-11-2024 30 Normal [facility] 30 Normal [facility] [id number] 08-11-2024 [id number] CM noted DC orders i n place, Dgt touring facilities over the weekend. Moira. [facility] pending acceptance, updates sent via careport. Normal [facility] Progress Noteon 08-11-2024 Progress Note Normal [facility] 30on 08-10-2024 30 Normal [facility] [id number] 08-10-2024 [id number] Normal [facility] Progress Noteon 08-10-2024 Progress Note [facility] [id number] 08-09-2024 [id number] Normal [facility] [id number] Normal [facility] [id number] Updated PT/OT notes placed to [facility] via Careport per TCC request. Await review and response regarding ability to accept. TCC notified. Electronically signed by [facility] Aracelis Gardiner Normal [facility] [id number] Patient is medically ready for dc. PT/OT both continuing to recommend SNF. [facility] manager presentation asked to start auth. Plan to dc back to [facility] pending auth [facility] Progress Noteon 08-09-2024 Progress Note Normal [facility] [id number] 08-08-2024 [id number] Normal [facility] Progress Noteon 08-08-2024 Progress Note Normal [facility] Progress Note [facility] Progress Note Normal [facility] 30on 08-07-2024 30 Normal [facility] 30 Normal [facility] 30 Normal [facility] [id number] 08-07-2024 [id number] Normal [facility] Progress Noteon 08-07-2024 Progress Note Normal [facility] 30on 08-06-2024 30 Normal [facility] 30 Normal [facility] [id number] 08-06-2024 [id number] Pt cont's on IV AtBs '. Plan is for pt to return to [facility]. Auth and HECTOR needed prior to DC. CM to follow. Normal [facility] [id number] Normal [facility] Comprehensive metabolic 1998 panelon 08-06-2024 Albumin [Mass/Vol] 2.4 g/dL Low 3.4 - 4.8 g/dL [facility] ALP [Catalytic activity/Vol] 72 U/L 40 - 150 U/L [facility] ALT [Catalytic activity/Vol] 24 U/L NINF - 30 U/L [facility] Anion gap [Moles/Vol] 7 mmol/L 3 - 13 mmol/L [facility] AST [Catalytic activity/Vol] 21 U/L NINF - 34 U/L [facility] Bilirubin [Mass/Vol] 0.9 mg/dL NINF - 1.2 mg/dL [facility] Calcium [Mass/Vol] 8.4 mg/dL Low 8.8 - 10. 0 mg/dL [facility] Chloride [Moles/Vol] 115 mmol/L High 98 - 10 7 mmol/L [facility] CO2 [Moles/Vol] 17 mmol/L Low 23 - 31 mmol/L [facility] Creatinine [Mass/Vol] 0.91 mg/dL 0.57 - 1.11 mg/dL [facility] GFR/1.73 sq M.predicted (S/P/Bld) [Vol rate/Area] 62.3 mL/min - PINF [facility] Comment on above: Calculation based on the Chronic Kidney Disease Epidemiology Collaboration (CKD-EPI) equation refit without adjustment for race Glucose [Mass/Vol] 92 mg/dL 82 - 115 mg/dL [facility] Interpretation and review of laboratory results Abnormal [facility] Potassium [Moles/Vol] 3.8 mmol/L 3.5 - 5.1 mmol/L [facility] Comment on above: Plasma potassium chris ues may be up to 0.5 mmol/L lower than serum values. Protein [Mass/Vol] 5.5 g/dL Low 6.4 - 8.3 g/dL [facility] Sodium [Moles/Vol] 139 mmol/L 136 - 145 mmol/L [facility] Urea nitrogen [Mass/Vol] 9 mg/dL 9 - 23 mg/dL [facility] Consulton 08-06-2024 Consult Normal [facility] Progress Noteon 08-06-2024 Progress Note Normal [facility] Progress Note Normal [facility] 30on 08-05-2024 30 Normal [facility] CBC W Auto Differential pane l (Bld)Ordered By: Frank Milligan on 08-05-2024 Basophils (Bld) [#/Vol] 0 10*3/uL 0.0 - 0.2 10*3/uL [facility] Basophils/100 WBC (Bld) 0.3 % 0.0 - 2.0 % [facility] Eosinophils (Bld) [#/Vol] 0.1 10*3/uL 0.0 - 0.5 10*3/uL [facility] Eosinophils/100 WBC (Bld) 1.6 % 0.0 - 6.0 % [facility] Erythrocyte distribution width (RBC) [Ratio] 18.9 % High 11.5 - 15.0 % [facility] Hematocrit (Bld) [Volume fraction] 33.3 % Low 35.0 - 47.0 % [facility] Hemoglobin (Bld) [Mass/Vol] 10.3 g/dL Low 11.7 - 16.0 g/dL [facility] Immature granulocytes (Bld) [#/Vol] 0.1 10*3/uL High NINF - 0.1 10*3/uL [facility] Immature granulocytes/100 WBC (Bld) 0.7 % 0.0 - 2.0 % [facility] Interpretation and review of laboratory results Abnormal [facility] Lymphocytes (Bld) [#/Vol] 1.1 10*3/uL 1.0 - 4.3 10*3/uL [facility] Lymphocytes/100 WBC (Bld) 15.6 % 15.0 - 45.0 % [facility] MCH (RBC) [Entitic mass] 26 pg 26.0 [...] [#/Vol] 7.3 10*3/uL 3.6 - 10.7 10*3/uL [facility] [facility] CBC W Auto Differential pane l [...] 9.9 g/dL Low 11.7 - 16.0 g/dL [facility] Immature granulocytes (Bld) [#/Vol] 0 10*3/uL NINF - 0.1 10*3/uL [facility] Immature granulocytes/100 WBC (Bld) 0.5 % 0.0 - 2.0 % [facility] Interpretation and review of laboratory results Abnormal [facility] Lymphocytes (Bld) [#/Vol] 1.1 10*3/uL 1.0 - 4.3 10*3/uL [facility] Lymphocytes/100 WBC (Bld) 16.6 % 15.0 - 45.0 % [facility] MCH (RBC) [Entitic mass] 26.2 pg 26.0 - 34.0 pg [facility] MCHC (RBC) [Mass/Vol] 31 % 30.5 - 36.0 % [facility] MCV (RBC) [Entitic vol] 84.4 fL 77.0 - 99.0 fL [facility] Monocytes (Bld) [#/Vol] 0.6 10*3/uL 0.0 - 0.9 10*3/uL [facility] Monocytes/100 WBC (Bld) 9.1 % 5.0 - 13.0 % [facility] Neutrophils (Bld) [#/Vol] 4.7 10*3/uL 1.8 - 7.5 10*3/uL [facility] Neutrophils/100 WBC (Bld) 72 % 38.0 - 82.0 % [facility] Nucleated RBC/100 WBC (Bld) [Ratio] 0 % [facility] Platelet mean volume (Bld) [Entitic vol] 10 fL 9.0 - 12.7 fL [facility] Platelets (Bld) [#/Vol] 242 10*3/uL 140 - 440 10*3/uL [facility] RBC (Bld) [#/Vol] 3.78 10*6/uL Low 3.80 - 5.2 0 10*6/uL [facility] WBC (Bld) [#/Vol] 6.5 10*3/uL 3.6 - 10.7 10*3/uL [facility] CBC WITH AUTO DIFFERENTIALon 08-05-2024 Basophils (Bld) [#/Vol] 0.0 10*3/uL Normal 0.0-0.2 [facility] Comment on above: Performed By: #### L [id number] ####Gas Shovel Operator: VELMA VALADEZ ([phone])[facility])[address] [place] [address] Basophils/100 WBC (Bld) 0.3 % Normal 0.0-2.0 S [facility] Comment on above: Performed By: #### L [id number] ####Gas Shovel Operator: VELMA VALADEZ ([phone])[facility])[address] [place] [address] Eosinophils (Bld) [#/Vol] 0.1 10*3/uL Normal 0.0-0.5 [facility] Comment on above: Performed By: #### L [id number] ####Gas Shovel Operator: VELMA VALADEZ ([phone])[facility])[address] [place] [address] Eosinophils/100 WBC (Bld) 1.6 % Normal 0.0-6.0 [facility] Comment on above: Performed By: #### L [id number] ####Gas Shovel Operator: VELMA VALADEZ ([phone])[facility])[address] [place] [address] Erythrocyte distribution width (RBC) [Ratio] 18.9 % High 11.5-15.0 [facility] Comment on above: Performed By: #### L [id number] ####Gas Shovel Operator: VELMA VALADEZ ([phone])[facility])[address] [place] [address] Hematocrit (Bld) [Volume fraction] 33.3 % Low 35.0-47.0 [facility] Comment on above: Performed By: #### L [id number] ####Gas Shovel Operator: VELMA VALADEZ ([phone])[address] Hemoglobin (Bld) [Mass/Vol] 10.3 g/dL Low 11.7-16.0 [facility] Comment on above: Performed By: #### L [id number] ####Gas Shovel Operator: VELMA VALADEZ ([phone])[facility])[address] [place] [address] IMMATURE GRANS % 0.7 % Normal 0.0-2.0 [facility] Comment on above: Performed By: #### L [id number] ####Gas Shovel Operator: VELMA VALADEZ ([phone])[facility])[address] [place] [address] IMMATURE GRANS ABSOLUTE 0.1 10*3/uL High <0.1 [facility] Comment on above: Performed By: #### L [id number] ####Gas Shovel Operator: VELMA VALADEZ ([phone])[facility])[address] [place] [address] Lymphocytes (Bld) [#/Vol] 1.1 10*3/uL Normal 1.0-4.3 [facility] Comment on above: Performed By: #### L [id number] ####Gas Shovel Operator: VELMA VALADEZ ([phone])[facility])[address] [place] [address] Lymphocytes/100 WBC (Bld) 15.6 % Normal 15.0-45.0 [facility] Comment on above: Performed By: #### L [id number] ####Gas Shovel Operator: VELMA VALADEZ ([phone])[facility])[address] [place] [address] MCH (RBC) [Entitic mass] 26.0 pg Normal 26.0-34.0 [facility] Comment on above: Performed By: #### L [id number] ####Gas Shovel Operator: VELMA VALADEZ ([phone])[address] MCHC 30.9 % Normal 30.5-36.0 [facility] Comment on above: Performed By: #### L [id number] ####Gas Shovel Operator: VELMA VALADEZ ([phone])[facility])[address] [place] [address] MCV (RBC) [Entitic vol] 84.1 fL Normal 77.0-99.0 [facility] Comment on above: Performed By: #### L [id number] ####Gas Shovel Operator: VELMA VALADEZ ([phone])[facility] ([facility])[address] [place] [address] Monocytes (Bld) [#/Vol] 0.7 10*3/uL Normal 0.0-0.9 [facility] Comment on above: Performed By: #### L [id number] ####Gas Shovel Operator: VELMA VALADEZ ([phone])[facility])[address] [place] [address] Monocytes/100 WBC (Bld) 9.9 % Normal 5.0-13.0 [facility] Comment on above: Performed By: #### L [id number] ####Gas Shovel Operator: VELMA VALADEZ ([phone])[facility] ([facility])[address] [place] [address] NEUTROPHILS ABSOLUTE 5.3 10*3/uL Normal 1.8-7.5 [facility] Comment on above: Performed By: #### L [id number] ####Gas Shovel Operator: VELMA VALADEZ ([phone])[facility] ([facility])[address] [place] [address] Neutrophils/100 WBC (Bld) 71.9 % Normal 38.0-82.0 [facility] Comment on above: Performed By: #### L [id number] ####Gas Shovel Operator: VELMA VALADEZ ([phone])[facility] ([facility])[address] [place] [address] [place] NRBC 0.0 /100 WBCs Normal 0.0-2.0 [facility] Comment on above: Performed By: #### L [id number] ####Gas Shovel Operator: VELMA VALADEZ ([phone])[facility] ([facility])[address] [place] [address] Platelet mean volume (Bld) [Entitic vol] 9.2 fL Normal 9.0-12.7 [facility] Comment on above: Performed By: #### L [id number] ####Gas Shovel Operator: VELMA VALADEZ ([phone])[facility])[address] [place] [address] Platelets (Bld) [#/Vol] 235 10*3/uL Normal 140-440 [facility] Comment on above: Performed By: #### L [id number] ####Gas Shovel Operator: VELMA VALADEZ ([phone])[facility] ([facility])[address] [place] [address] RBC (Bld) [#/Vol] 3.96 10*6/uL Normal 3.80-5.20 [facility] Comment on above: Performed By: #### L [id number] ####Gas Shovel Operator: VELMA VALADEZ ([phone])[facility])[address] [place] [address] WBC (Bld) [#/Vol] 7.3 10*3/uL Normal 3.6-10.7 [facility] Comment on above: Performed By: #### L [id number] ####Gas Shovel Operator: VELMA VALADEZ ([phone])[facility])[address] [place] [address] Basophils (Bld) [#/Vol] 0.0 10*3/uL Normal 0.0-0.2 [facility] Comment on above: Performed By: #### L [id number] ####Gas Shovel Operator: VELMA VALADEZ ([phone])[facility] ([facility])[address] [place] [address] [place] Basophils/100 WBC (Bld) 0.3 % Normal 0.0-2.0 S [facility] Comment on above: Performed By: #### L [id number] ####Gas Shovel Operator: VELMA VALADEZ ([phone])[facility] ([facility])[address] [place] [address] [place] Eosinophils (Bld) [#/Vol] 0.1 10*3/uL Normal 0.0-0.5 [facility] Comment on above: Performed By: #### L [id number] ####Gas Shovel Operator: VELMA VALADEZ ([phone])[address] Eosinophils/100 WBC (Bld) 1.5 % Normal 0.0-6.0 [facility] Comment on above: Performed By: #### L [id number] ####Gas Shovel Operator: VELMA VALADEZ ([phone])[facility])[address] [place] [address] Erythrocyte distribution width (RBC) [Ratio] 19.2 % High 11.5-15.0 [facility] Comment on above: Performed By: #### L [id number] ####Gas Shovel Operator: VELMA VALADEZ ([phone])[address] Hematocrit (Bld) [Volume fraction] 31.9 % Low 35.0-47.0 [facility] Comment on above: Performed By: #### L [id number] ####Gas Shovel Operator: VELMA VALADEZ ([phone])[address] Hemoglobin (Bld) [Mass/Vol] 9.9 g/dL Low 11.7-16.0 [facility] Comment on above: Performed By: #### L [id number] ####Gas Shovel Operator: VELMA VALADEZ ([phone])[address] IMMATURE GRANS % 0.5 % Normal 0.0-2.0 [facility] Comment on above: Performed By: #### L [id number] ####Gas Shovel Operator: VELMA VALADEZ ([phone])[address] IMMATURE GRANS ABSOLUTE 0.0 10*3/uL Normal <0.1 [facility] Comment on above: Performed By: #### L [id number] ####Gas Shovel Operator: VELMA VALADEZ ([phone])[facility])[address] [place] [address] Lymphocytes (Bld) [#/Vol] 1.1 10*3/uL Normal 1.0-4.3 [facility] Comment on above: Performed By: #### L [id number] ####Gas Shovel Operator: VELMA VALADEZ ([phone])[facility])[address] [place] [address] Lymphocytes/100 WBC (Bld) 16.6 % Normal 15.0-45.0 [facility] Comment on above: Performed By: #### L [id number] ####Gas Shovel Operator: VELMA VALADEZ ([phone])[facility])[address] [place] [address] MCH (RBC) [Entitic mass] 26.2 pg Normal 26.0-34.0 [facility] Comment on above: Performed By: #### L [id number] ####Gas Shovel Operator: VELMA VALADEZ ([phone])[facility])[address] [place] [address] MCHC 31.0 % Normal 30.5-36.0 [facility] Comment on above: Performed By: #### L [id number] ####Gas Shovel Operator: VELMA VALADEZ ([phone])[facility])[address] [place] [address] MCV (RBC) [Entitic vol] 84.4 fL Normal 77.0-99.0 S [facility] Comment on above: Performed By: #### L [id number] ####Gas Shovel Operator: VELMA VALADEZ ([phone])[facility])[address] [place] [address] Monocytes (Bld) [#/Vol] 0.6 10*3/uL Normal 0.0-0.9 [facility] Comment on above: Performed By: #### L [id number] ####Gas Shovel Operator: VELMA VALADEZ ([phone])[facility])[address] [place] [address] [place] Monocytes/100 WBC (Bld) 9.1 % Normal 5.0-13.0 [facility] Comment on above: Performed By: #### L [id number] ####Gas Shovel Operator: VELMA VALADEZ ([phone])[facility] ([facility])[address] [place] [address] NEUTROPHILS ABSOLUTE 4.7 10*3/uL Normal 1.8-7.5 [facility] Comment on above: Performed By: #### L [id number] ####Gas Shovel Operator: VELMA VALADEZ ([phone])[facility] ([facility])[address] [place] [address] Neutrophils/100 WBC (Bld) 72.0 % Normal 38.0-82.0 [facility] Comment on above: Performed By: #### L [id number] ####Gas Shovel Operator: VELMA VALADEZ ([phone])[facility] ([facility])[address] [place] [address] NRBC 0.0 /100 WBCs Normal 0.0-2.0 [facility] Comment on above: Performed By: #### L [id number] ####Gas Shovel Operator: VELMA VALADEZ ([phone])[facility] ([facility])[address] [place] [address] Platelet mean volume (Bld) [Entitic vol] 10.0 fL Normal 9.0-12.7 [facility] Comment on above: Performed By: #### L [id number] ####Gas Shovel Operator: VELMA VALADEZ ([phone])[facility] ([facility])[address] [place] [address] Platelets (Bld) [#/Vol] 242 10*3/uL Normal 140-440 [facility] Comment on above: Performed By: #### L [id number] ####Gas Shovel Operator: VELMA VALADEZ ([phone])[facility] ([facility])[address] [place] [address] RBC (Bld) [#/Vol] 3.78 10*6/uL Low 3.80-5.20 [facility] Comment on above: Performed By: #### L [id number] ####Gas Shovel Operator: VELMA VALADEZ ([phone])[facility])[address] [place] [address] WBC (Bld) [#/Vol] 6.5 10*3/uL Normal 3.6-10.7 [facility] Comment on above: Performed By: #### L [id number] ####Gas Shovel Operator: VELMA VALADEZ ([phone])[facility])[address] [place] [address] COMPREHENSIVE METABOLIC PANE Gilberto 08-05-2024 Albumin [Mass/Vol] 2.4 g/dL Low 3.4-4.8 [facility] Comment on above: Performed By: #### L [id number] ####Gas Shovel Operator: VELMA VALADEZ ([phone])[facility])[address] [place] [address] ALP [Catalytic activity/Vol] 72 U/L Normal 40-150 [facility] Comment on above: Performed By: #### L [id number] ####Gas Shovel Operator: VELMA VALADEZ ([phone])[facility])[address] [place] [address] ALT [Catalytic activity/Vol] 24 U/L Normal <30 [facility] Comment on above: Performed By: #### L [id number] ####Gas Shovel Operator: VELMA VALADEZ ([phone])[facility])[address] [place] [address] Anion gap [Moles/Vol] 7 mmol/L Normal 3-13 [facility] Comment on above: Performed By: #### L [id number] ####Gas Shovel Operator: VELMA VALADEZ ([phone])[facility])[address] [place] [address] AST [Catalytic activity/Vol] 21 U/L Normal <34 [facility] Comment on above: Performed By: #### L [id number] ####Gas Shovel Operator: VELMA VALADEZ ([phone])[facility])[address] [place] [address] Bilirubin [Mass/Vol] 0.9 mg/dL Normal <1.2 [facility] Comment on above: Performed By: #### L [id number] ####Gas Shovel Operator: VELMA VALADEZ ([phone])[facility] [place] [address] Calcium [Mass/Vol] 8.4 mg/dL Low 8.8-10.0 [facility] Comment on above: Performed By: #### L [id number] ####Gas Shovel Operator: VELMA VALADEZ ([phone])[facility])[address] [place] [address] Chloride [Moles/Vol] 115 mmol/L High 98-107 [facility] Comment on above: Performed By: #### L [id number] ####Gas Shovel Operator: VELMA VALADEZ ([phone])[facility])[address] [place] [address] CO2 [Moles/Vol] 17 mmol/L Low 23-31 [facility] Comment on above: Performed By: #### L [id number] ####Gas Shovel Operator: VELMA VALADEZ ([phone])[facility])[address] [place] [address] Creatinine [Mass/Vol] 0.91 mg/dL Normal 0.57-1.11 [facility] Comment on above: Performed By: #### L [id number] ####Gas Shovel Operator: VELMA VALADEZ ([phone])[facility])[address] [place] [address] GLOMERULAR FILTRATION RATE ML/MIN/1.73 SQ M.PREDICTED 62.3 mL/min/1.73m*2 Normal >60.0 [facility] Comment on above: Result Comment: Calc ulation based on the Chronic Kidney Disease Epidemiology Collaboration (CKD-EPI) equation refit without adjustment for race Performed By: #### L [id number] ####Gas Shovel Operator: VELMA VALADEZ ([phone])[facility] ([facility])[address] [place] [address] Glucose [Mass/Vol] 92 mg/dL Normal 82-115 [facility] Comment on above: Performed By: #### L [id number] ####Gas Shovel Operator: VELMA VALADEZ ([phone])[facility])[address] [place] [address] Potassium [Moles/Vol] 3.8 mmol/L Normal 3.5-5.1 [facility] Comment on above: Result Comment: [facility] potassium values may be up to 0.5 mmol/L lower than serum values. Performed By: #### L [id number] ####Gas Shovel Operator: VELMA VALADEZ ([phone])[facility])[address] [place] [address] Protein [Mass/Vol] 5.5 g/dL Low 6.4-8.3 [facility] Comment on above: Performed By: #### L [id number] ####Gas Shovel Operator: VELMA VALADEZ ([phone])[facility] ([facility])[address] [place] [address] Sodium [Moles/Vol] 139 mmol/L Normal 136-145 [facility] Comment on above: Performed By: #### L [id number] ####Gas Shovel Operator: VELMA VALADEZ ([phone])[facility])[address] [place] [address] [place] Urea nitrogen [Mass/Vol] 9 mg/dL Normal 9-23 [facility] Comment on above: Performed By: #### L [id number] ####Gas Shovel Operator: VELMA VALADEZ ([phone])[facility])[address] [place] [address] [place] Albumin [Mass/Vol] 2.3 g/dL Low 3.4-4.8 [facility] Comment on above: Performed By: #### L [id number] ####Gas Shovel Operator: VELMA VALADEZ ([phone])[facility])[address] [place] [address] [place] ALP [Catalytic activity/Vol] 74 U/L Normal 40-150 [facility] Comment on above: Performed By: #### L [id number] ####Gas Shovel Operator: VELMA VALADEZ ([phone])[facility] ([facility])[address] [place] [address] ALT [Catalytic activity/Vol] 27 U/L Normal <30 [facility] Comment on above: Performed By: #### L AB17 ####Gas Shovel Operator: VELMA VALADEZ ([phone])[facility] ([facility])[address] [place] [address] Anion gap [Moles/Vol] 5 mmol/L Normal 3-13 [facility] Comment on above: Performed By: #### L AB17 ####Gas Shovel Operator: VELMA VALADEZ ([phone])[facility])[address] [place] [address] AST [Catalytic activity/Vol] 24 U/L Normal <34 [facility] Comment on above: Performed By: #### L AB17 ####Gas Shovel Operator: VELMA VALADEZ ([phone])[facility] ([facility])[address] [place] [address] Bilirubin [Mass/Vol] 0.6 mg/dL Normal <1.2 [facility] Comment on above: Performed By: #### L AB17 ####Gas Shovel Operator: VELMA VALADEZ ([phone])[facility] ([facility])[address] [place] [address] Calcium [Mass/Vol] 8.1 mg/dL Low 8.8-10.0 [facility] Comment on above: Performed By: #### L AB17 ####Gas Shovel Operator: VELMA VALADEZ ([phone])[facility] ([facility])[address] [place] [address] [place] Chloride [Moles/Vol] 108 mmol/L High 98-107 [facility] Comment on above: Performed By: #### L AB17 ####Gas Shovel Operator: VELMA VALADEZ ([phone])[facility] ([facility])[address] [place] [address] [place] CO2 [Moles/Vol] 21 mmol/L Low 23-31 [facility] Comment on above: Performed By: #### L AB17 ####Gas Shovel Operator: VELMA VALADEZ ([phone])[facility])[address] [place] [address] Creatinine [Mass/Vol] 0.89 mg/dL Normal 0.57-1.11 [facility] Comment on above: Performed By: #### L AB17 ####Gas Shovel Operator: VELMA VALADEZ ([phone])[facility])[address] [place] [address] GLOMERULAR FILTRATION RATE ML/MIN/1.73 SQ M.PREDICTED 64.0 mL/min/1.73m*2 Normal >60.0 [facility] Comment on above: Result Comment: Calc ulation based on the Chronic Kidney Disease Epidemiology Collaboration (CKD-EPI) equation refit without adjustment for race Performed By: #### L AB17 ####Gas Shovel Operator: VELMA VALADEZ ([phone])[facility])[address] [place] [address] Glucose [Mass/Vol] 85 mg/dL Normal 82-115 [facility] Comment on above: Performed By: #### L AB17 ####Gas Shovel Operator: VELMA VALADEZ ([phone])[address] Potassium [Moles/Vol] 3.8 mmol/L Normal 3.5-5.1 [facility] Comment on above: Result Comment: [facility] potassium values may be up to 0.5 mmol/L lower than serum values. Performed By: #### L AB17 ####Gas Shovel Operator: VELMA VALADEZ ([phone])[facility])[address] [place] [address] Protein [Mass/Vol] 5.2 g/dL Low 6.4-8.3 [facility] Comment on above: Performed By: #### L AB17 ####Gas Shovel Operator: VELMA VALADEZ ([phone])[facility])[address] [place] [address] Sodium [Moles/Vol] 134 mmol/L Low 136-145 [facility] Comment on above: Performed By: #### L AB17 ####Gas Shovel Operator: VELMA VALADEZ ([phone])[facility] ([facility])[address] [place] [address] Urea nitrogen [Mass/Vol] 13 mg/dL Normal 9-23 [facility] Comment on above: Performed By: #### L AB17 ####Gas Shovel Operator: VELMA VALADEZ ([phone])[facility] ([facility])[address] [place] [address] Comprehensive metabolic 1998 panelon 08-05-2024 Albumin [Mass/Vol] 2.3 g/dL Low 3.4 - 4.8 g/dL [facility] ALP [Catalytic activity/Vol] 74 U/L 40 - 150 U/L [facility] ALT [Catalytic activity/Vol] 27 U/L NINF - 30 U/L [facility] Anion gap [Moles/Vol] 5 mmol/L 3 - 13 mmol/L [facility] AST [Catalytic activity/Vol] 24 U/L NINF - 34 U/L [facility] Bilirubin [Mass/Vol] 0.6 mg/dL NINF - 1.2 mg/dL [facility] Calcium [Mass/Vol] 8.1 mg/dL Low 8.8 - 10. 0 mg/dL [facility] Chloride [Moles/Vol] 108 mmol/L High 98 - 10 7 mmol/L [facility] CO2 [Moles/Vol] 21 mmol/L Low 23 - 31 mmol/L [facility] Creatinine [Mass/Vol] 0.89 mg/dL 0.57 - 1.11 mg/dL [facility] GFR/1.73 sq M.predicted (S/P/Bld) [Vol rate/Area] 64 mL/min - PINF [facility] Comment on above: Calculation based on the Chronic Kidney Disease Epidemiology Collaboration (CKD-EPI) equation refit without adjustment for race Glucose [Mass/Vol] 85 mg/dL 82 - 115 mg/dL [facility] Interpretation and review of laboratory results Abnormal [facility] Potassium [Moles/Vol] 3.8 mmol/L 3.5 - 5.1 mmol/L [facility] Comment on above: Plasma potassium chris ues may be up to 0.5 mmol/L lower than serum values. Protein [Mass/Vol] 5.2 g/dL Low 6.4 - 8.3 g/dL [facility] Sodium [Moles/Vol] 134 mmol/L Low 136 - 145 mmol/L [facility] Urea nitrogen [Mass/Vol] 13 mg/dL 9 - 23 mg/dL [facility] Progress Noteon 08-05-2024 Progress Note Normal [facility] Progress Note Normal [facility] 30on 08-04-2024 30 Normal [facility] 30 Normal [facility] CBC W Auto Differential pane l (Bld)Ordered By: Devika Eisenberg on 08-04-2024 Basophils (Bld) [#/Vol] 0 10*3/uL 0.0 - 0.2 10*3/uL [facility] Basophils/100 WBC (Bld) 0.2 % 0.0 - 2.0 % [facility] Eosinophils (Bld) [#/Vol] 0.1 10*3/uL 0.0 - 0.5 10*3/uL [facility] Eosinophils/100 WBC (Bld) 1.4 % 0.0 - 6.0 % [facility] Erythrocyte distribution width (RBC) [Ratio] 19.3 % High 11.5 - 15.0 % [facility] Hematocrit (Bld) [Volume fraction] 33 % Low 35.0 - 47.0 % [facility] Hemoglobin (Bld) [Mass/Vol] 10 g/dL Low 11.7 - 16.0 g/dL [facility] Immature granulocytes (Bld) [#/Vol] 0 10*3/uL NINF - 0.1 10*3/uL [facility] Immature granulocytes/100 WBC (Bld) 0.5 % 0.0 - 2.0 % [facility] Interpretation and review of laboratory results Abnormal [facility] Lymphocytes (Bld) [#/Vol] 1 10*3/uL 1.0 - 4.3 10*3/uL [facility] Lymphocytes/100 WBC (Bld) 17.7 % 15.0 - 45.0 % [facility] MCH (RBC) [Entitic mass] 25.8 pg Low 26.0 - 34.0 pg [facility] MCHC (RBC) [Mass/Vol] 30.3 % Low 30.5 - 36.0 % [facility] MCV (RBC) [Entitic vol] 85.1 fL 77.0 - 99.0 fL [facility] Monocytes (Bld) [#/Vol] 0.5 10*3/uL 0.0 - 0.9 10*3/uL [facility] Monocytes/100 WBC (Bld) 9.5 % 5.0 - 13.0 % [facility] Neutrophils (Bld) [#/Vol] 3.9 10*3/uL 1.8 - 7.5 10*3/uL [facility] Neutrophils/100 WBC (Bld) 70.7 % 38.0 - 82.0 % [facility] Nucleated RBC/100 WBC (Bld) [Ratio] 0 % [facility] Platelet mean volume (Bld) [Entitic vol] 9.8 fL 9.0 - 12.7 fL [facility] Platelets (Bld) [#/Vol] 280 10*3/uL 140 - 440 10*3/uL [facility] RBC (Bld) [#/Vol] 3.88 10*6/uL 3.80 - 5.2 0 10*6/uL [facility] WBC (Bld) [#/Vol] 5.6 10*3/uL 3.6 - 10.7 10*3/uL [facility] CBC WITH AUTO DIFFERENTIALon 08-04-2024 Basophils (Bld) [#/Vol] 0.0 10*3/uL Normal 0.0-0.2 [facility] Comment on above: Performed By: #### L [id number] ####Gas Shovel Operator: VELMA VALADEZ ([phone])[facility])[address] [place] [address] Basophils/100 WBC (Bld) 0.2 % Normal 0.0-2.0 [facility] Comment on above: Performed By: #### L [id number] ####Gas Shovel Operator: VELMA VALADEZ ([phone])[facility])[address] [place] [address] Eosinophils (Bld) [#/Vol] 0.1 10*3/uL Normal 0.0-0.5 [facility] Comment on above: Performed By: #### L [id number] ####Gas Shovel Operator: VELMA VALADEZ ([phone])[address] Eosinophils/100 WBC (Bld) 1.4 % Normal 0.0-6.0 [facility] Comment on above: Performed By: #### L [id number] ####Gas Shovel Operator: VELMA VALADEZ ([phone])[facility])[address] [place] [address] Erythrocyte distribution width (RBC) [Ratio] 19.3 % High 11.5-15.0 [facility] Comment on above: Performed By: #### L [id number] ####Gas Shovel Operator: VELMA VALADEZ ([phone])[address] Hematocrit (Bld) [Volume fraction] 33.0 % Low 35.0-47.0 [facility] Comment on above: Performed By: #### L [id number] ####Gas Shovel Operator: VELMA VALADEZ ([phone])[address] Hemoglobin (Bld) [Mass/Vol] 10.0 g/dL Low 11.7-16.0 [facility] Comment on above: Performed By: #### L [id number] ####Gas Shovel Operator: VELMA VALADEZ ([phone])[address] IMMATURE GRANS % 0.5 % Normal 0.0-2.0 [facility] Comment on above: Performed By: #### L [id number] ####Gas Shovel Operator: VELMA VALADEZ ([phone])[address] IMMATURE GRANS ABSOLUTE 0.0 10*3/uL Normal <0.1 [facility] Comment on above: Performed By: #### L [id number] ####Gas Shovel Operator: VELMA VALADEZ ([phone])[facility])[address] [place] [address] Lymphocytes (Bld) [#/Vol] 1.0 10*3/uL Normal 1.0-4.3 [facility] Comment on above: Performed By: #### L [id number] ####Gas Shovel Operator: VELMA VALADEZ ([phone])[facility])[address] [place] [address] Lymphocytes/100 WBC (Bld) 17.7 % Normal 15.0-45.0 [facility] Comment on above: Performed By: #### L [id number] ####Gas Shovel Operator: VELMA VALADEZ ([phone])[facility])[address] [place] [address] MCH (RBC) [Entitic mass] 25.8 pg Low 26.0-34.0 [facility] Comment on above: Performed By: #### L [id number] ####Gas Shovel Operator: VELMA VALADEZ ([phone])[facility])[address] [place] [address] MCHC 30.3 % Low 30.5-36.0 [facility] Comment on above: Performed By: #### L [id number] ####Gas Shovel Operator: VELMA VALADEZ ([phone])[facility])[address] [place] [address] MCV (RBC) [Entitic vol] 85.1 fL Normal 77.0-99.0 S [facility] Comment on above: Performed By: #### L [id number] ####Gas Shovel Operator: VELMA VALADEZ ([phone])[facility])[address] [place] [address] Monocytes (Bld) [#/Vol] 0.5 10*3/uL Normal 0.0-0.9 [facility] Comment on above: Performed By: #### L [id number] ####Gas Shovel Operator: VELMA VALADEZ ([phone])[facility])[address] [place] [address] Monocytes/100 WBC (Bld) 9.5 % Normal 5.0-13.0 [facility] Comment on above: Performed By: #### L [id number] ####Gas Shovel Operator: VELMA VALADEZ ([phone])[facility] ([facility])[address] [place] [address] NEUTROPHILS ABSOLUTE 3.9 10*3/uL Normal 1.8-7.5 [facility] Comment on above: Performed By: #### L [id number] ####Gas Shovel Operator: VELMA VALADEZ ([phone])[facility] ([facility])[address] [place] [address] Neutrophils/100 WBC (Bld) 70.7 % Normal 38.0-82.0 [facility] Comment on above: Performed By: #### L [id number] ####Gas Shovel Operator: VELMA VALADEZ ([phone])[facility] ([facility])[address] [place] [address] NRBC 0.0 /100 WBCs Normal 0.0-2.0 [facility] Comment on above: Performed By: #### L [id number] ####Gas Shovel Operator: VELMA VALADEZ ([phone])[facility] ([facility])[address] [place] [address] Platelet mean volume (Bld) [Entitic vol] 9.8 fL Normal 9.0-12.7 [facility] Comment on above: Performed By: #### L [id number] ####Gas Shovel Operator: VELMA VALADEZ ([phone])[facility] ([facility])[address] [place] [address] Platelets (Bld) [#/Vol] 280 10*3/uL Normal 140-440 [facility] Comment on above: Performed By: #### L [id number] ####Gas Shovel Operator: VELMA VALADEZ ([phone])[facility] ([facility])[address] [place] [address] RBC (Bld) [#/Vol] 3.88 10*6/uL Normal 3.80-5.20 [facility] Comment on above: Performed By: #### L [id number] ####Gas Shovel Operator: VELMA VALADEZ ([phone])[facility])[address] [place] [address] WBC (Bld) [#/Vol] 5.6 10*3/uL Normal 3.6-10.7 [facility] Comment on above: Performed By: #### L [id number] ####Gas Shovel Operator: VELMA VALADEZ ([phone])[facility])[address] [place] [address] COMPREHENSIVE METABOLIC PANE Gilberto 08-04-2024 Albumin [Mass/Vol] 2.3 g/dL Low 3.4-4.8 [facility] Comment on above: Performed By: #### L [id number] ####Gas Shovel Operator: VELMA VALADEZ ([phone])[facility])[address] [place] [address] ALP [Catalytic activity/Vol] 68 U/L Normal 40-150 [facility] Comment on above: Performed By: #### L [id number] ####Gas Shovel Operator: VELMA VALADEZ ([phone])[facility])[address] [place] [address] ALT [Catalytic activity/Vol] 26 U/L Normal <30 [facility] Comment on above: Performed By: #### L [id number] ####Gas Shovel Operator: VELMA VALADEZ ([phone])[facility])[address] [place] [address] Anion gap [Moles/Vol] 6 mmol/L Normal 3-13 [facility] Comment on above: Performed By: #### L [id number] ####Gas Shovel Operator: VELMA VALADEZ ([phone])[facility])[address] [place] [address] AST [Catalytic activity/Vol] 25 U/L Normal <34 [facility] Comment on above: Performed By: #### L [id number] ####Gas Shovel Operator: VELMA [phone])[facility])[address] [place] [address] Bilirubin [Mass/Vol] 0.5 mg/dL Normal <1.2 [facility] Comment on above: Performed By: #### L [id number] ####Gas Shovel Operator: VELMA VALADEZ ([phone])[facility] [place] [address] Calcium [Mass/Vol] 8.2 mg/dL Low 8.8-10.0 [facility] Comment on above: Performed By: #### L [id number] ####Gas Shovel Operator: VELMA VALADEZ ([phone])[facility])[address] [place] [address] Chloride [Moles/Vol] 112 mmol/L High 98-107 [facility] Comment on above: Performed By: #### L [id number] ####Gas Shovel Operator: VELAM VALADEZ ([phone])[facility])[address] [place] [address] CO2 [Moles/Vol] 21 mmol/L Low 23-31 [facility] Comment on above: Performed By: #### L [id number] ####Gas Shovel Operator: VELMA VALADEZ ([phone])[facility] ([facility])[address] [place] [address] Creatinine [Mass/Vol] 1.13 mg/dL High 0.57-1.11 [facility] Comment on above: Performed By: #### L [id number] ####Gas Shovel Operator: VELMA VALADEZ ([phone])[facility])[address] [place] [address] GLOMERULAR FILTRATION RATE ML/MIN/1.73 SQ M.PREDICTED 48.1 mL/min/1.73m*2 Low >60.0 [facility] Comment on above: Result Comment: Calc ulation based on the Chronic Kidney Disease Epidemiology Collaboration (CKD-EPI) equation refit without adjustment for race Performed By: #### L [id number] ####Gas Shovel Operator: VELMA VALADEZ ([phone])[facility] Glucose [Mass/Vol] 153 mg/dL High 82-115 [facility] Comment on above: Performed By: #### L [id number] ####Gas Shovel Operator: VELMA VALADEZ ([phone])[facility])[address] [place] [address] Potassium [Moles/Vol] 3.9 mmol/L Normal 3.5-5.1 [facility] Comment on above: Result Comment: [facility] potassium values may be up to 0.5 mmol/L lower than serum values. Performed By: #### L [id number] ####Gas Shovel Operator: VELMA VALADEZ ([phone])[facility])[address] [place] [address] Protein [Mass/Vol] 5.2 g/dL Low 6.4-8.3 [facility] Comment on above: Performed By: #### L [id number] ####Gas Shovel Operator: VELMA VALADEZ ([phone])[facility])[address] [place] [address] Sodium [Moles/Vol] 139 mmol/L Normal 136-145 [facility] Comment on above: Performed By: #### L [id number] ####Gas Shovel Operator: VELMA VALADEZ ([phone])[address] Urea nitrogen [Mass/Vol] 26 mg/dL High 9-23 [facility] Comment on above: Performed By: #### L [id number] ####Gas Shovel Operator: VELMA VALADEZ ([phone])[facility])[address] [place] [address] Comprehensive metabolic 1998 panelon 08-04-2024 Albumin [Mass/Vol] 2.3 g/dL Low 3.4 - 4.8 g/dL [facility] ALP [Catalytic activity/Vol] 68 U/L 40 - 150 U/L [facility] ALT [Catalytic activity/Vol] 26 U/L NINF - 30 U/L [facility] Anion gap [Moles/Vol] 6 mmol/L 3 - 13 mmol/L [facility] AST [Catalytic activity/Vol] 25 U/L NINF - 34 U/L [facility] Bilirubin [Mass/Vol] 0.5 mg/dL NINF - 1.2 mg/dL [facility] Calcium [Mass/Vol] 8.2 mg/dL Low 8.8 - 10. 0 mg/dL [facility] Chloride [Moles/Vol] 112 mmol/L High 98 - 10 7 mmol/L [facility] CO2 [Moles/Vol] 21 mmol/L Low 23 - 31 mmol/L [facility] Creatinine [Mass/Vol] 1.13 mg/dL High 0.57 - 1.11 mg/dL [facility] GFR/1.73 sq M.predicted (S/P/Bld) [Vol rate/Area] 48.1 mL/min Low - PINF [facility] Comment on above: Calculation based on the Chronic Kidney Disease Epidemiology Collaboration (CKD-EPI) equation refit without adjustment for race Glucose [Mass/Vol] 153 mg/dL High 82 - 115 mg/dL [facility] Interpretation and review of laboratory results Abnormal [facility] Potassium [Moles/Vol] 3.9 mmol/L 3.5 - 5.1 mmol/L [facility] Comment on above: Plasma potassium chris ues may be up to 0.5 mmol/L lower than serum values. Protein [Mass/Vol] 5.2 g/dL Low 6.4 - 8.3 g/dL [facility] Sodium [Moles/Vol] 139 mmol/L 136 - 145 mmol/L [facility] Urea nitrogen [Mass/Vol] 26 mg/dL High 9 - 23 mg/dL [facility] Nursing Noteon 08-04-2024 Nursing Note Bedside swallow completed. Pt passed and tolerated well tolerated well. Normal [facility] Progress Noteon 08-04-2024 Progress Note Normal [facility] 30on 08-03-2024 30 Normal [facility] 30 Normal [facility] 30 Normal [facility] [id number] 08-03-2024 [id number] Normal [facility] BASIC METABOLIC PANELon 07-18 Anion gap [Moles/Vol] 6 mmol/L Normal 3-13 [facility] Comment on above: Performed By: #### L [id number] ####Gas Shovel Operator: VELMA [phone])[facility] [place] [address] Calcium [Mass/Vol] 8.5 mg/dL Low 8.8-10.0 [facility] Comment on above: Performed By: #### L AB15 ####Gas Shovel Operator: VELMA VALADEZ ([phone])[facility])[address] [place] [address] [place] Chloride [Moles/Vol] 105 mmol/L Normal 98-107 [facility] Comment on above: Performed By: #### L AB15 ####Gas Shovel Operator: VELMA VALADEZ ([phone])[facility] ([facility])[address] [place] [address] CO2 [Moles/Vol] 27 mmol/L Normal 23-31 [facility] Comment on above: Performed By: #### L AB15 ####Gas Shovel Operator: VELMA VALADEZ ([phone])[facility] ([facility])[address] [place] [address] Creatinine [Mass/Vol] 1.18 mg/dL High 0.57-1.11 [facility] Comment on above: Performed By: #### L AB15 ####Gas Shovel Operator: VELMA VALADEZ ([phone])[facility] ([facility])[address] [place] [address] GLOMERULAR FILTRATION RATE ML/MIN/1.73 SQ M.PREDICTED 45.6 mL/min/1.73m*2 Low >60.0 [facility] Comment on above: Result Comment: Calc ulation based on the Chronic Kidney Disease Epidemiology Collaboration (CKD-EPI) equation refit without adjustment for race Performed By: #### L AB15 ####Gas Shovel Operator: VELMA VALADEZ ([phone])[facility] ([facility])[address] [place] [address] [place] Glucose [Mass/Vol] 100 mg/dL Normal 82-115 [facility] Comment on above: Performed By: #### L AB15 ####Gas Shovel Operator: VELMA VALADEZ ([phone])[facility])[address] [place] [address] Potassium [Moles/Vol] 4.7 mmol/L Normal 3.5-5.1 [facility] Comment on above: Result Comment: [facility] potassium values may be up to 0.5 mmol/L lower than serum values. Performed By: #### L AB15 ####Gas Shovel Operator: VELMA VALADEZ ([phone])[facility] ([facility])[address] [place] [address] Sodium [Moles/Vol] 138 mmol/L Normal 136-145 [facility] Comment on above: Performed By: #### L AB15 ####Gas Shovel Operator: VELMA VALADEZ ([phone])[facility])[address] [place] [address] Urea nitrogen [Mass/Vol] 33 mg/dL High 9-23 [facility] Comment on above: Performed By: #### L AB15 ####Gas Shovel Operator: VELMA VALADEZ ([phone])[facility])[address] [place] [address] Basic metabolic 1998 panelOr dered By: Juni Millard on 08-03-2024 Anion gap [Moles/Vol] 6 mmol/L 3 - 13 mmol/L [facility] Calcium [Mass/Vol] 8.5 mg/dL Low 8.8 - 10. 0 mg/dL [facility] Chloride [Moles/Vol] 105 mmol/L 98 - 10 7 mmol/L [facility] CO2 [Moles/Vol] 27 mmol/L 23 - 31 mmol/L [facility] Creatinine [Mass/Vol] 1.18 mg/dL High 0.57 - 1.11 mg/dL [facility] GFR/1.73 sq M.predicted (S/P/Bld) [Vol rate/Area] 45.6 mL/min Low - PINF [facility] Comment on above: Calculation based on the Chronic Kidney Disease Epidemiology Collaboration (CKD-EPI) equation refit without adjustment for race Glucose [Mass/Vol] 100 mg/dL 82 - 115 mg/dL [facility] Interpretation and review of laboratory results Abnormal [facility] Potassium [Moles/Vol] 4.7 mmol/L 3.5 - 5.1 mmol/L [facility] Comment on above: Plasma potassium chris ues may be up to 0.5 mmol/L lower than serum values. Sodium [Moles/Vol] 138 mmol/L 136 - 145 mmol/L [facility] Urea nitrogen [Mass/Vol] 33 mg/dL High 9 - 23 mg/dL [facility] CBC W Auto Differential pane l (Bld)Ordered By: Christin Mayes on 08-03-2024 Erythrocyte distribution width (RBC) [Ratio] 19.4 % High 11.5 - 15.0 % [facility] Hematocrit (Bld) [Volume fraction] 38.7 % 35.0 - 47.0 % [facility] Hemoglobin (Bld) [Mass/Vol] 12.1 g/dL 11.7 - 16.0 g/dL [facility] MCH (RBC) [Entitic mass] 26 pg 26.0 - 34.0 pg [facility] MCHC (RBC) [Mass/Vol] 31.3 % 30.5 - 36.0 % [facility] MCV (RBC) [Entitic vol] 83.2 fL 77.0 - 99.0 fL [facility] Nucleated RBC/100 WBC (Bld) [Ratio] 0 % [facility] Platelet mean volume (Bld) [Entitic vol] 9.8 fL 9.0 - 12.7 fL [facility] Comment on above: MPV is a calculated measurement using platelet volume ratio Platelets (Bld) [#/Vol] 303 10*3/uL 140 - 440 10*3/uL [facility] [place] RBC (Bld) [#/Vol] 4.65 10*6/uL 3.80 - 5.2 0 10*6/uL [facility] WBC (Bld) [#/Vol] 9.1 10*3/uL 3.6 - 10.7 10*3/uL [facility] CBC WITH AUTO DIFFERENTIALon 08-03-2024 Erythrocyte distribution width (RBC) [Ratio] 19.4 % High 11.5-15.0 [facility] Comment on above: Performed By: #### L [id number], [id number] ####Gas Shovel Operator: VELMA VALADEZ ([phone])[facility]EL[facility]EN[facility] (RLAB)[address] Hematocrit (Bld) [Volume fraction] 38.7 % Normal 35.0-47.0 [facility] Comment on above: Performed By: #### L [id number], [id number] ####Gas Shovel Operator: VELMA VALADEZ ([phone])[facility]PITAL[facility] (SWRLAB)[address] [place] [address] Hemoglobin (Bld) [Mass/Vol] 12.1 g/dL Normal 11.7-16.0 [facility] Comment on above: Performed By: #### L [id number], [id number] ####Gas Shovel Operator: VELMA VALADEZ ([phone])[facility]OS[facility]ITAL[facility] (SWRL[facility])[address] [place] [address] MCH (RBC) [Entitic mass] 26.0 pg Normal 26.0-34.0 [facility] Comment on above: Performed By: #### [place]on [id number], [id number] ####Gas Shovel Operator: VELMA VALADEZ ([phone])[facility]ITAL[facility] AD[facility] RITTMAN (SWRL[facility])[address] [place] [address] MCHC 31.3 % Normal 30.5-36.0 [facility] Comment on above: Performed By: #### L [id number], [id number] ####Gas Shovel Operator: VELMA VALADEZ ([phone])[facility]ITAL[facility] AD[facility] RITTMAN (SWRL[facility])[address] [place] [address] MCV (RBC) [Entitic vol] 83.2 fL Normal 77.0-99.0 [facility] Comment on above: Performed By: #### L [id number], [id number] ####Gas Shovel Operator: VELMA VALADEZ ([phone])[facility]OS[facility]ITAL[facility] AD[facility] RITTMAN (SWRL[facility])[address] [place] [address] NRBC 0.0 /100 WBCs Normal 0.0-2.0 [facility] Comment on above: Performed By: #### L [id number], [id number] ####Gas Shovel Operator: VELMA VALADEZ ([phone])[facility] ADAMES RITTMAN (SWRLAB)[address] Platelet mean volume (Bld) [Entitic vol] 9.8 fL Normal 9.0-12.7 [facility] Comment on above: Result Comment: MPV is a calculated measurement using platelet volume ratio Performed By: #### L [id number], [id number] ####Gas Shovel Operator: VELMA VALADEZ ([phone])[facility] ADAMES RITTMAN (SWRLAB)[address] Platelets (Bld) [#/Vol] 303 10*3/uL Normal 140-440 [facility] Comment on above: Performed By: #### L [id number], [id number] ####Gas Shovel Operator: VELMA VALADEZ ([phone])[facility]OSPITAL[facility] ADAMES RITTMAN (SWRLAB)[address] [place] [address] [place] RBC (Bld) [#/Vol] 4.65 10*6/uL Normal 3.80-5.20 [facility] Comment on above: Performed By: #### L [id number], [id number] ####Gas Shovel Operator: VELMA VALADEZ ([phone])INNA ADAMES RITTMAN (SWRLAB)[address] [place] [address] WBC (Bld) [#/Vol] 9.1 10*3/uL Normal 3.6-10.7 [facility] Comment on above: Performed By: #### L [id number], [id number] ####Gas Shovel Operator: VELMA VALADEZ ([phone])[facility]PITALSim[facility] ADAMES RITTMAN (SWRLAB)[address] COMPREHENSIVE METABOLIC PANE Gilberto 08-03-2024 Albumin [Mass/Vol] 2.8 g/dL Low 3.4-4.8 [facility] Comment on above: Performed By: #### L [id number], [id number], [id number] ####Gas Shovel Operator: VELMA VALADEZ ([phone])[facility]OSPITALSimran SANCHEZROSANGELA RITTMAN (SWRLAB)[address] [place] [address] [place] ALP [Catalytic activity/Vol] 82 U/L Normal 40-150 [facility] Comment on above: Performed By: #### L AB17, [id number], LAB99 ####Gas Shovel Operator: VELMA VALADEZ ([phone])[facility] HOSPITAL[facility] SANCHEZROSANGELA RITTMAN (SWRLAB)[address] [place] [address] [place] ALT [Catalytic activity/Vol] 26 U/L Normal <30 [facility] Comment on above: Performed By: #### Weston AB17, [id number], LAB99 ####Gas Shovel Operator: VELMA VALADEZ ([phone])[facility] HOSPITALSimran SANCHEZROSANGELA RITTMAN (SWRLAB)[address] Anion gap [Moles/Vol] 9 mmol/L Normal 3-13 [facility] Comment on above: Performed By: #### Weston REIS17, [id number], LAB99 ####Gas Shovel Operator: VELMA VALADEZ ([phone])[facility]OSPITALSimran DAAMES RITTMAN (SWRLAB)[address] [place] [address] [place] AST [Catalytic activity/Vol] 36 U/L High <34 [facility] Comment on above: Result Comment: TCSi gnificant interference from hemolysis. Result integrity compromised. Interpret with caution. Performed By: #### Weston REIS17, [id number], LAB99 ####Gas Shovel Operator: VELMA VALADEZ ([phone])[facility]OSPITALSimran SANCHEZROSANGELA RITTMAN (SWRLAB)[address] [place] [address] [place] Bilirubin [Mass/Vol] 0.7 mg/dL Normal <1.2 [facility] Comment on above: Performed By: #### Weston AB17, [id number], LAB99 ####Gas Shovel Operator: VELMA VALADEZ ([phone])[facility]ITALSimran SANCHEZROSANGELA RITTMAN (SWRLAB)[address] [place] [address] [place] Calcium [Mass/Vol] 9.0 mg/dL Normal 8.8-10.0 [facility] Comment on above: Performed By: #### Weston AB17, [id number], LAB99 ####Gas Shovel Operator: VELMA VALADEZ ([phone])[facility]OSPITALSimran ADAMES RITTMAN (SWRLAB)[address] [place] [address] [place] Chloride [Moles/Vol] 109 mmol/L High 98-107 [facility] Comment on above: Performed By: #### Weston AB17, [id number], LAB99 ####Gas Shovel Operator: VELMA VALADEZ ([phone])[facility] HOSPITALSimran ADAMES RITTMAN (SWRLAB)[address] [place] [address] [place] CO2 [Moles/Vol] 21 mmol/L Low 23-31 [facility] Comment on above: Performed By: #### Weston AB17, [id number], LAB99 ####Gas Shovel Operator: VELMA VALADEZ ([phone])[facility]OSPITALSimran ADAMES RITTMAN (SWRLAB)[address] [place] [address] [place] Creatinine [Mass/Vol] 1.30 mg/dL High 0.57-1.11 [facility] Comment on above: Performed By: #### Weston HOLLY, [id number], LAB99 ####Gas Shovel Operator: VELMA VALADEZ ([phone])[facility]OSPITALSimran VERDINTMAN (SWRLAB)[address] [place] [address] [place] GLOMERULAR FILTRATION RATE ML/MIN/1.73 SQ M.PREDICTED 40.6 mL/min/1.73m*2 Low >60.0 [facility] Comment on above: Result Comment: Calc ulation based on the Chronic Kidney Disease Epidemiology Collaboration (CKD-EPI) equation refit without adjustment for race Performed By: #### Weston AB17, [id number], LAB99 ####Gas Shovel Operator: VELMA VALADEZ ([phone])[facility]ITALSimran VERDINTMAN (SWRLAB)[address] [place] [address] [place] Glucose [Mass/Vol] 103 mg/dL Normal 82-115 [facility] Comment on above: Performed By: #### Weston AB17, [id number], LAB99 ####Gas Shovel Operator: VELMA VALADEZ ([phone])[facility]ITALSim[facility] ADAMES RITTMAN (SWRLAB)[address] [place] [address] [place] Potassium [Moles/Vol] 5.9 mmol/L High 3.5-5.1 [facility] Comment on above: Result Comment: TCSi gnificant interference from hemolysis. Result integrity compromised. Interpret with caution. Performed By: #### L AB17, [id number], LAB99 ####Gas Shovel Operator: VELMA VALADEZ ([phone])[facility]ITALSim[facility] ADAMES RITTMAN (SWRLAB)[address] Protein [Mass/Vol] 6.7 g/dL Normal 6.4-8.3 [facility] Comment on above: Result Comment: TCPo tential interference from hemolysis Performed By: #### Weston AB17, [id number], LAB99 ####Gas Shovel Operator: VELMA VALADEZ ([phone])[facility]ITALSim[facility] ADAMES RITTMAN (SWRLAB)[address] Sodium [Moles/Vol] 139 mmol/L Normal 136-145 [facility] Comment on above: Performed By: #### Weston AB17, [id number], LAB99 ####Gas Shovel Operator: VELMA VALADEZ ([phone])[facility]ITALSim[facility] ADAMES RITTMAN (SWRLAB)[address] Urea nitrogen [Mass/Vol] 34 mg/dL High 9-23 [facility] Comment on above: Performed By: #### L AB17, [id number], LAB99 ####Gas Shovel Operator: VELMA VALADEZ ([phone])[facility]ITALSim[facility] ADAMES RITTMAN (SWRLAB)[address] ABDOMEN PELVIS WO IV CONT RASTon 08-03-2024 CT ABDOMEN PELVIS WO IV CONTRAST Normal [facility] CT Abdomen and Pelvis WO con traston 08-03-2024 1. Extensive colonic diverticulosis without evidence of diverticulitis 2. Consolidation in the medial left lower lobe, possibly pneumonia 3. No bowel dilatation Report Dictated on Electronically Signed By: Ming Fry MD Electronically Signed Date/Time: 08/03/2024 4:05 AM EST [employer] Patient Name: MEL CARVER RD : 1940 [facility]#: [id number] Exam Date/Time: 08/03/2024 03:05 Procedure: CT ABDOMEN [...] Lymph nodes: Unremarkable. No enlarged lymph nodes. [facility] [employer] Ming Fry MD - 08/03/2024 Patient Name: MEL POP [facility] 1940 [id number] Exam Date/Time: 08/03/2024 03:05 Procedure: CT ABDOMEN [...] Electronically Signed Date/Time: 08/03/2024 4:05 AM EST [facility] Radiology Study observation (narrative) Inna Kemp alth CT Abdomen and Pelvis WO con trastOrdered By: Ming Fry on 08-03-2024 [facility] ID AMERICA Work Phone: Comprehensive metabolic 1998 panelon 08-03-2024 Albumin [Mass/Vol] 2.8 g/dL Low 3.4 - 4.8 g/dL [facility] ALP [Catalytic activity/Vol] 82 U/L 40 - 150 U/L [facility] ALT [Catalytic activity/Vol] 26 U/L NINF - 30 U/L [facility] Anion gap [Moles/Vol] 9 mmol/L 3 - 13 mmol/L [facility] AST [Catalytic activity/Vol] 36 U/L High [facility] - [facility] U/L [facility] Comment on above: TC Significant interference from hemolysis. Result integrity compromised. Interpret with caution. Bilirubin [Mass/Vol] 0.7 mg/dL NINF - 1.2 mg/dL [facility] Calcium [Mass/Vol] 9 mg/dL 8.8 - 10. 0 mg/dL [facility] Chloride [Moles/Vol] 109 mmol/L High 98 - 10 7 mmol/L [facility] CO2 [Moles/Vol] 21 mmol/L Low 23 - 31 mmol/L [facility] Creatinine [Mass/Vol] 1.3 mg/dL High 0.57 - 1.11 mg/dL [facility] GFR/1.73 sq M.predicted (S/P/Bld) [Vol rate/Area] 40.6 mL/min Low - PINF [facility] Comment on above: Calculation based on the Chronic Kidney Disease Epidemiology Collaboration (CKD-EPI) equation refit without adjustment for race Glucose [Mass/Vol] 103 mg/dL 82 - 115 mg/dL [facility] Interpretation and review of laboratory results Abnormal [facility] Potassium [Moles/Vol] 5.9 mmol/L High 3.5 - 5.1 mmol/L [facility] Comment on above: TC Significant interference from hemolysis. Result integrity compromised. Interpret with caution. Protein [Mass/Vol] 6.7 g/dL 6.4 - 8.3 g/dL [facility] Comment on above: TC Potential interference from hemolysis Sodium [Moles/Vol] 139 mmol/L 136 - 145 mmol/L [facility] Urea nitrogen [Mass/Vol] 34 mg/dL High 9 - 23 mg/dL [facility] ED Nursing Noteon 08-03-2024 ED Nursing Note Pt placed in roundtrip Normal [facility] ED Nursing Note ED CT and ED xray notified that patient is ready Normal [facility] ED Provider Noteon ED Provider Note Normal [facility] GASTROINTESTINAL PCR PANELon 08-03-2024 GASTROINTESTINAL PCR PANEL Normal [facility] Comment on above: Performed By: #### L [id number] ####Gas Shovel Operator: VELMA VALADEZ ([phone])[facility] (SACLAB)[address] [place] [address] Gastrointestinal pathogens p masoud OXANA+probe (Stl)Ordered By: Maximus Dimas on 08-03-2024 Adenovirus F 40/41 Not detected Not Detected [facility] Astrovirus Not detected Not Detected [facility] Campylobacter Not detected Not Detected [facility] Cryptosporidium Not detected Not Detected [facility] Cyclospora cayetanensis Not detected Not Detected [facility] Entamoeba histolytica Not detected Not Detected [facility] Enterotoxigenic E coli (ETEC) Not detected Not Detected [facility] Giardia lamblia Not detected Not Detected [facility] Interpretation and review of laboratory results Abnormal [facility] Norovirus GI/GII Detected Abnormal Not Detected [facility] Plesiomonas shigelloides Not detected Not Detected [facility] Rotavirus A Not detected Not Detected [facility] Salmonella Not detected Not Detected [facility] Sapovirus Not detected Not Detected [facility] Shiga toxin-producing E coli (STEC) Not detected Not Detected [facility] Shigella/Enteroinvasive E coli (EIEC) Not detected Not Detected [facility] Vibrio cholerae Not detected Not Detected [facility] Vibrio species Not detected Not Detected [facility] Yersinia enterocolitica Not detected Not Detected [facility] A positive Norovirus result on the Film [employer] GI panel should be interpreted in the context of the patient's history and clinical picture. If results are not consistent, result should be confirmed with a Norovirus specific assay. Methodology: Multiplex PCR [facility] LACTIC ACID WITH REFLEXon Lactate [Moles/Vol] 1.9 mmol/L Normal 0.5-2.2 [facility] Comment on above: Performed By: #### L [id number] ####Gas Shovel Operator: VELMA VALADEZ ([phone])[facility] (SACLAB)[address] [place] [address] LIPASEon 08-03-2024 Lipase [Catalytic activity/Vol] 8 U/L Normal <55 [facility] Comment on above: Performed By: #### L AB17, [id number], LAB99 ####Gas Shovel Operator: VELMA VALADEZ ([phone])[facility] (SWRLAB)[address] [place] [address] Laboratory - Chemistry and C hemistry - challengeon 08-03-2024 Lactate [Moles/Vol] 1.9 mmol/L 0.5 - 2. 2 mmol/L [facility] Anion gap (Bld) [Moles/Vol] 8 mmol/L 3.00 - 13.00 [facility] Calcium.ionized (Bld) [Moles/Vol] 4.7 mg/dl 4.30 - 5.20 mg/dl [facility] Chloride [Moles/Vol] 107 mmol/L 98 - 11 4 mmol/L [facility] CO2 [Moles/Vol] 23 mmol/L 21 - 29 mmol/L [facility] Creatinine [Mass/Vol] 1.3 mg/dL 0.6 - 1.3 mg/dL [facility] GFR/1.73 sq M.predicted CKD-EPI (S/P/Bld) [Vol rate/Area] 40.6 [facility] Comment on above: KDIGO guidelines pro vide [...] 118 mg/dL High 70 - 100 mg/dL [facility] Potassium [Moles/Vol] 4.3 mmol/L 3.4 - 5.1 mmol/L [facility] Sodium [Moles/Vol] 138 mmol/L 133 - 145 mmol/L [facility] Urea (Bld) [Mass/Vol] 33 mg/dL High 4 - 22 mg/dL [facility] Lipase [Catalytic activity/Vol] 8 U/L NINF - 55 U/L [facility] Magnesium [Mass/Vol] 1.9 mg/dL 1.6 - 2 .6 mg/dL [facility] Laboratory - Microbiology an d Antimicrobial susceptibilityon 08-03-2024 FLUAV RNA OXANA+probe Ql (Resp) Not detected Not Detected [facility] FLUBV RNA OXANA+probe Ql (Resp) Not detected Not Detected [facility] RSV RNA OXANA+probe Ql (Resp) Not detected Not Detected [facility] SARS-CoV-2 (COVID-19) RNA OXANA+probe Ql (Resp) Not detected Not Detected [facility] SARS-CoV-2 (COVID-19) RNA OXANA+probe Ql (Unsp spec) Methodology: real-time, RT-PCR The SARS-CoV-2, Flu A/B, and RSV Combo assay is intended for in vitro diagnostic use under the FDA Emergency Use Authorization (EUA). This test has not been FDA cleared or approved. In compliance with this authorization, please visit www.fda.gov/media/70051 5/download or www.fda.gov/media/03297 6/download to access the applicable information sheets. [facility] MAGNESIUMon 08-03-2024 Magnesium [Mass/Vol] 1.9 mg/dL Normal 1.6-2.6 [facility] Comment on above: Result Comment: ORDE R COMMENTS:Higher values can be expected in females during menses. Performed By: #### L AB17, [id number], LAB99 ####Gas Shovel Operator: VELMA VALADEZ ([phone])[facility] (SWRLAB)[address] [place] [address] MANUAL DIFFERENTIALon 2024 BASOPHILS (10*3/UL) IN BLOOD BY MANUAL COUNT 0.0 10*3/uL Normal 0.0-0.2 [facility] Comment on above: Performed By: #### L [id number], [id number] ####Gas Shovel Operator: VELMA VALADEZ ([phone])[facility]ITALA ROSANGELA RITTMAN (SWRLAB)[address] [place] [address] [place] BASOPHILS TOTAL PER COUNTED LEUKOCYTES BY MANUAL COUNT 0 Normal [facility] Comment on above: Performed By: #### Weston [id number], [id number] ####Gas Shovel Operator: VELMA VALADEZ ([phone])[facility]ITALA ROSANGELA RITTMAN (SWRLAB)[address] [place] [address] [place] BASOPHILS/100 LEUKOCYTES IN BLOOD BY MANUAL COUNT 0 % Normal 0-2 [facility] Comment on above: Performed By: #### Weston [id number], [id number] ####Gas Shovel Operator: VELMA VALADEZ ([phone])[facility] ROSANGELA RITTMAN (SWRLAB)[address] [place] [address] [place] CELLS COUNTED TOTAL (#) IN BLOOD 100 Normal [facility] Comment on above: Performed By: #### Weston [id number], [id number] ####Gas Shovel Operator: VELMA VALADEZ ([phone])[facility] ROSANGELA RITTMAN (SWRLAB)[address] [place] [address] [place] DIFFERENTIAL METHOD Automated differenti al reported after manual slide review Normal [facility] Comment on above: Performed By: #### Weston [id number], [id number] ####Gas Shovel Operator: VELMA VALADEZ ([phone])[facility] ROSANGELA RITTMAN (SWRLAB)[address] [place] [address] [place] EOSINOPHILS (10*3/UL) IN BLOOD BY MANUAL COUNT 0.1 10*3/uL Normal 0.0-0.5 [facility] Comment on above: Performed By: #### L [id number], [id number] ####Gas Shovel Operator: VELMA VALADEZ ([phone])[facility] ROSANGELA RITTMAN (SWRLAB)[address] [place] [address] [place] EOSINOPHILS TOTAL PER COUNTED LEUKOCYTES BY MANUAL COUNT 1 Normal 0-1 [facility] Comment on above: Performed By: #### L [id number], [id number] ####Gas Shovel Operator: VELMA VALADEZ ([phone])[facility] ROSANGELA RITTMAN (SWRLAB)[address] [place] [address] [place] EOSINOPHILS/100 LEUKOCYTES IN BLOOD BY MANUAL COUNT 1 % Normal 0-6 [facility] Comment on above: Performed By: #### L [id number], [id number] ####Gas Shovel Operator: VELMA VALADEZ ([phone])[facility] ROSANGELA RITTMAN (SWRLAB)[address] [place] [address] [place] LEUKOCYTE MORPHOLOGY FINDING IN BLOOD Normal Normal [facility] Comment on above: Performed By: #### L [id number], [id number] ####Gas Shovel Operator: VELMA VALADEZ ([phone])[facility] ROSANGELA RITTMAN (SWRLAB)[address] [place] [address] [place] LEUKOCYTES (10*3/UL) NUCLEATED ERYTHROCYTE ADJUST 9.1 10*3/uL Normal 3.6-10.7 [facility] Comment on above: Performed By: #### L [id number], [id number] ####Gas Shovel Operator: VELMA VALADEZ ([phone])[facility] ROSANGELA RITTMAN (SWRLAB)[address] [place] [address] [place] LYMPHOCYTES (10*3/UL) IN BLOOD BY MANUAL COUNT 0.5 10*3/uL Low 1.0-4.3 [facility] Comment on above: Performed By: #### L [id number], [id number] ####Gas Shovel Operator: VELMA VALADEZ ([phone])[facility] ROSANGELA RITTMAN (SWRLAB)[address] [place] [address] [place] LYMPHOCYTES TOTAL PER COUNTED LEUKOCYTES BY MANUAL COUNT 5 Normal [facility] Comment on above: Performed By: #### L [id number], [id number] ####Gas Shovel Operator: VELMA VALADEZ ([phone])[facility] ROSANGELA RITTMAN (SWRLAB)[address] [place] [address] [place] LYMPHOCYTES/100 LEUKOCYTES IN BLOOD BY MANUAL COUNT 5 % Low 15-45 [facility] Comment on above: Performed By: #### L [id number], [id number] ####Gas Shovel Operator: VELMA VALADEZ ([phone])[facility] ROSANGELA RITTMAN (SWRLAB)[address] [place] [address] [place] MONOCYTES (10*3/UL) IN BLOOD BY MANUAL COUNT 0.5 10*3/uL Normal 0.0-0.9 [facility] Comment on above: Performed By: #### L [id number], [id number] ####Gas Shovel Operator: VELMA VALADEZ ([phone])[facility]ITALSim[facility] ADAMES RITTMAN (SWRLAB)[address] [place] [address] [place] MONOCYTES TOTAL PER COUNTED LEUKOCYTES BY MANUAL COUNT 6 Normal [facility] Comment on above: Performed By: #### L [id number], [id number] ####Gas Shovel Operator: VELMA VALADEZ ([phone])[facility]ITALSim[facility] SANCHEZROSANGELA RITTMAN (SWRLAB)[address] [place] [address] [place] MONOCYTES/100 LEUKOCYTES IN BLOOD BY MANUAL COUNT 6 % Normal 5-13 [facility] Comment on above: Performed By: #### L [id number], [id number] ####Gas Shovel Operator: VELMA VALADEZ ([phone])[facility]ITAL[facility] ADAMES RITTMAN (SWRLAB)[address] [place] [address] [place] NEUTROPHILS (SEGS+BANDS) (10*3/UL) BY MANUAL COUNT 7.9 10*3/uL High 1.8-7.0 [facility] Comment on above: Performed By: #### L [id number], [id number] ####Gas Shovel Operator: VELMA VALADEZ ([phone])[facility]ITALSimran SANCHEZROSANGELA RITTMAN (SWRLAB)[address] [place] [address] [place] NEUTROPHILS TOTAL PER COUNTED LEUKOCYTES BY MANUAL COUNT 87 Normal [facility] Comment on above: Performed By: #### L [id number], [id number] ####Gas Shovel Operator: VELMA VALADEZ ([phone])[facility] ROSANGELA RITTMAN (SWRLAB)[address] [place] [address] [place] PLATELET MORPHOLOGY IN BLOOD Normal Normal [facility] Comment on above: Performed By: #### L [id number], [id number] ####Gas Shovel Operator: VELMA VALADEZ ([phone])[facility] ROSANGELA RITTMAN (SWRLAB)[address] [place] [address] [place] RBC MORPHOLOGY IN BLOOD Normal Normal [facility] Comment on above: Performed By: #### L [id number], [id number] ####Gas Shovel Operator: VELMA VALADEZ ([phone])[facility] ROSANGELA RITTMAN (SWRLAB)[address] [place] [address] [place] SEGEMENTED NEUTROPHILS/100 LEUKOCYTES BY MANUAL COUNT 87 % High 38-82 [facility] Comment on above: Performed By: #### L [id number], [id number] ####Gas Shovel Operator: VELMA VALADEZ ([phone])[facility] ROSANGELA RITTMAN (SWRLAB)[address] [place] [address] [place] UNCLASSIFIED CELLS (10*3/UL) IN BLOOD BY MANUAL COUNT 0.1 10*3/uL Normal [facility] Comment on above: Performed By: #### L [id number], [id number] ####Gas Shovel Operator: VELMA VALADEZ ([phone])[facility] ROSANGELA RITTMAN (SWRLAB)[address] [place] [address] [place] UNCLASSIFIED CELLS/100 LEUKOCYTES IN BLOOD 1.00 % Normal [facility] Comment on above: Performed By: #### L [id number], [id number] ####Gas Shovel Operator: VELMA VALADEZ ([phone])[facility] ROSANGELA RITTMAN (SWRLAB)[address] [place] [address] [place] Magnesium [Mass/Vol]on 08-03 Higher values can be expected in females during menses. [facility] Manual differential performe d Ql (Bld)on 08-03-2024 Basophils (Bld) [#/Vol] 0 10*3/uL 0.0 - 0.2 10*3/uL [facility] Basophils Manual 0 [facility] alth Basophils/100 WBC (Bld) 0 % 0 - 2 % [facility] Cells Counted Total (Bld) [#] 100 {cells} [facility] Differential Method Automated differenti al reported after manual slide review [facility] Eosinophils (Bld) [#/Vol] 0.1 10*3/uL 0.0 - 0.5 10*3/uL [facility] Eosinophils Manual 1 0 - 1 [facility] Eosinophils/100 WBC (Bld) 1 % 0 - 6 % [facility] Leukocyte morphology finding Nom (Bld) Normal [facility] Lymphocytes (Bld) [#/Vol] 0.5 10*3/uL Low 1.0 - 4.3 10*3/uL [facility] Lymphocytes Manual 5 [facility] Lymphocytes/100 WBC (Bld) 5 % Low 15 - 45 % [facility] Monocytes (Bld) [#/Vol] 0.5 10*3/uL 0.0 - 0.9 10*3/uL [facility] Monocytes Manual 6 [facility] alth Monocytes/100 WBC (Bld) 6 % 5 - 13 % [facility] Neutrophils (Bld) [#/Vol] 7.9 10*3/uL High 1.8 - 7.0 10*3/uL [facility] Neutrophils Manual 87 [facility] Platelet morphology finding Nom (Bld) Normal [facility] RBC morphology finding Nom (Bld) Normal [facility] Segmented neutrophils/100 WBC (Bld) 87 % High 38 - 82 % [facility] Unclassified Cells % 1 % [facility] Unclassified Cells, Abs. 0.1 10*3/uL [facility] WBC corrected for nucl RBC (Bld) [#/Vol] 9.1 10*3/uL 3.6 - 10.7 10*3/uL [facility] No Panel Informationon 08-03 Interpretation and review of laboratory results Normal [facility] Interpretation and review of laboratory results Abnormal [facility] Performed by: Inna SanchezE[facility], [address] [place] [address] CLIA ID: [id number] [facility] Interpretation and review of laboratory results Normal [facility] No Panel InformationOrdered By: Christin Mayes on 08-03-2024 Interpretation and review of laboratory results Abnormal [facility] SARS-COV-2, FLU A/B, AND RSV COMBOon 08-03-2024 SARS-CoV-2 (COVID-19) RNA OXANA+probe Ql (Unsp spec) Normal [facility] Comment on above: Performed By: #### L [id number] ####Gas Shovel Operator: VELMA VALADEZ ([phone])[facility] (SWRLAB)[address] [place] [address] SARS-CoV-2, Flu A/B, and RSV Comboon 08-03-2024 Interpretation and review of laboratory results Normal [facility] XR Chest Single viewon 08-03 No acute abnormality Report Dictated on Electronically Signed By: Ming Fry MD Electronically Signed Date/Time: 08/03/2024 3:33 AM EST [facility] [employer] Patient Name: MEL CARVER RD : [...] within the right humerus. No acute fracture. [facility] Ming Fry MD - 08/03/2024 Patient [...] Electronically Signed Date/Time: 08/03/2024 3:33 AM EST [facility] Study observation (narrative) [facility] XR Chest Single viewOrdered By: Ming Fry on 08-03-2024 [facility] Work Phone: ANES POSTPROC EVALon 025 ANES POSTPROC EVAL HNO ID: [id number] Author: ROBINSON BRUNNER MD Service: ? Author Type: Anesthesiologist Type: Anesthesia Postprocedure Evaluation Filed: 07/31/2024 12:48 Note Text: POST ANESTHESIA EVALUATION NOTE : 1940 Procedure Summary Date: 07/27/24 Room / Location: [address] Anesthesia Start: 1114 Anesthesia Stop: 1322 Procedures: VITRECTOMY 25G [facility] APPROACH W/ REMOVAL OF PRERETINAL [...] with this procedure. Documented by Mikhail Nichols APRN.PAPER COLORER 07/27/2024 1:22 PM EST SIGNATURE: Robinson Pizano MD PATIENT NAME: Mel Castillo DATE: July 31, 2024 TIME: 12:46 PM CSN: [id number] Normal [facility] ANES PRE-OPon 07-27-2024 ANES PRE-OP HNO ID: [id number] Author: ROBINSON BRUNNER MD Service: ? Author Type: Anesthesiologist Type: Anesthesia Preprocedure Evaluation Filed: 07/27/2024 11:10 Note Text: ANESTHESIOLOGY DAY OF SURGERY NOTE : 1940 Procedure Information Date/Time: 07/27/24 1110 Procedures: VITRECTOMY 25G [facility] PARS PLANA APPROACH W/ REMOVAL OF PRERETINAL CELLULAR MEMBRANE (Right: Eye) RELEASE OF VITREOUS, CHOROIDAL FLUID, PARS PLANA APPROACH (Right: Eye) Location: [place] [address] / [facility] Surgeons: Savana Lopez MD Estimated [...] and consent discussed: yes. Patient / Responsible Libertarian agrees to proceed: yes Patient / Surrogate [...] tiotropium 2.5 (more content not included)... Normal [facility] OPERATIVE NOon 07-27-2024 OPERATIVE NO HNO ID: [id number] Author: SAVANA LOPEZ MD Service: Ophthalmology Author Type: Physician Type: Operative Report Filed: 07/27/2024 13:20 Note Text: [place] [address] [facility] OPERATIVE REPORT LOG ID: [id number] Surgery/Procedure Date: 07/27/2024 Incision/Procedure Start Time: 11:39 AM Incision Close/Procedure End Time: 1:07 PM NAME: [facility] #: [id number] SURGEON(S) AND SLATE WORKER(S): Surgeons and Role: Panel 1: * Savana [...] was repaired by the use of max streetsweeper operator forceps and vitreous cutter. This was a [...] times thro (more content not included)... Normal [facility] BSCAN OD (RIGHT EYE)on 07-24 [facility] Right eye Photo documentatio non 07-24-2024 [facility] BSCAN OD (RIGHT EYE)on 07-23 [facility]ative[facility] Right eye Photo documentatio non 07-23-2024 Radiology Study observation (narrative) [facility] CASE MANAGEMon 07-18-2024 CASE MANAGEM HNO ID: [id number] Author: DOMINIQUE RAMSAY LSW Service: ? Author Type: Chief Dispatcher Service Type: Care Mgt Progress Note Filed: 07/18/2024 11:21 Note Text: CARE MANAGEMENT DISCHARGE NOTE SERVICE DATE: July 18, 2024 SERVICE TIME: 11:19 AM Admission Date: 07/07/2024 LOS: 11 days Discharge Arrangement Discharge Arrangement: [facility] Services Arranged Medical Services: Other: See Comment (N/A) Caregiver Assessment Caregiver is ready, willing and able to meet the patient's needs as recommended by the inter-professional team: Yes Name of Caregiver: Rosangela Tomlin Transportation Arrangements Transportation Arrangements: Ambulance Transportation Agency and Phone #:: [facility] [phone] Date of Trip: 07/18/24 Time of Trip: 1100 Type of Service: BLS Non-emergency Handoff Communication: Handoff to: Primary Care Physician Primary Care Physician Name/Phone: Jared Evans Additional Information: Discharge Information Row Name Admission (Current) from 07/07/2024 in HOSP MAIN H[facility] [place] [address] Patient d/c ready to [facility] via [facility] with picking crew supervisor scheduled for 11am today by Stretcher. Patient aware of plan. Bedside RN aware of plan and provided number to call report for nurse report; call [phone] :) Command And Control Specialist can transfer you to the 2nd floor. . 7000 and DC instructions sent to [facility] via [facility] and are in DC packet. DC packet in chart to go with patient. SIGNATURE: SHAQUILLE Garay PATIENT NAME: Mel Castillo DATE: July 18, 2024 TIME: 11:19 AM Normal [facility] CBC panel Auto (Bld)on 07-18 Erythrocyte distribution width (RBC) [Ratio] 17.5 % High 11.5-15.0 [facility] Comment on above: Order Comment: Speci men Type: BLOOD SPECIMEN Ordering Facility: [facility] Address: [address] [place] [address] Performed By: #### 5 8410-2 #### [facility] CLIA [id number] [address] [place] [address] [place] Hematocrit (Bld) [Volume fraction] 33.8 % Low 36.0-46.0 [facility] Comment on above: Order Comment: Speci men Type: BLOOD SPECIMEN Ordering Facility: [facility] Address: [address] [place] [address] Performed By: #### 5 8410-2 #### [facility] CLIA [id number] [address] [place] [address] [place] Hemoglobin (Bld) [Mass/Vol] 10.5 g/dL Low 11.5-15.5 [facility] Comment on above: Order Comment: Speci men Type: BLOOD SPECIMEN Ordering Facility: [facility] Address: [address] [place] [address] Performed By: #### 5 8410-2 #### [facility] CLIA [id number] [address] [place] [address] [place] MCH (RBC) [Entitic mass] 26.0 pg Normal 26.0-34.0 [facility] Comment on above: Order Comment: Speci men Type: BLOOD SPECIMEN Ordering Facility: [facility] Address: [address] [place] [address] Performed By: #### 5 8410-2 #### [facility] CLIA [id number] [address] [place] [address] [place] MCHC (RBC) [Mass/Vol] 31.1 g/dL Normal 30.5-36.0 [facility] Comment on above: Order Comment: Speci men Type: BLOOD SPECIMEN Ordering Facility: [facility] Address: [address] [place], [place] [address] Performed By: #### 5 8410-2 #### [facility] CLIA [id number] [address] [place] [address] [place] MCV (RBC) [Entitic vol] 83.7 fL Normal 80.0-100.0 [facility] Comment on above: Order Comment: Speci men Type: BLOOD SPECIMEN Ordering Facility: [facility] Address: [address] [place] [address] Performed By: #### 5 8410-2 #### [facility] CLIA [id number] [address] [place] [address] [place] Nucleated RBC (Bld) [#/Vol] 10*3/uL Normal <0.01 [facility] Comment on above: Order Comment: Speci men Type: BLOOD SPECIMEN Ordering Facility: [facility] Address: [address] [place] [address] Performed By: #### 5 8410-2 #### [facility] CLIA [id number] [address] [place] [address] [place] Platelet mean volume (Bld) [Entitic vol] 9.3 fL Normal 9.0-12.7 [facility] Comment on above: Order Comment: Speci men Type: BLOOD SPECIMEN Ordering Facility: [facility] Address: [address] [place] [address] Performed By: #### 5 8410-2 #### [facility] CLIA [id number] [address] [place] [address] [place] Platelets (Bld) [#/Vol] 386 10*3/uL Normal 150-400 [facility] Comment on above: Order Comment: Speci men Type: BLOOD SPECIMEN Ordering Facility: [facility] Address: [address] [place] [address] Performed By: #### 5 8410-2 #### [facility] CLIA [id number] [address] [place] [address] [place] RBC (Bld) [#/Vol] 4.04 10*6/uL Normal 3.90-5.20 [facility] Comment on above: Order Comment: Speci men Type: BLOOD SPECIMEN Ordering Facility: [facility] Address: [address] [place] [address] Performed By: #### 5 8410-2 #### [facility] CLIA [id number] [address] [place] [address] [place] WBC (Bld) [#/Vol] 10.81 10*3/uL Normal 3.70-11.00 [facility] Comment on above: Order Comment: Speci men Type: BLOOD SPECIMEN Ordering Facility: [facility] Address: [address] [place] [address] Performed By: #### 5 8410-2 #### [facility] CLIA [id number] [address] [place] [address] [place] CNDSon 07-18-2024 CNDS HNO ID: [id number] Author: BRIANA PRITCHARD MD Service: General Internal [...] May 2024 who presents to OSH from [facility] for further evaluation of R acute angle [...] hemorraghic cho (more content not included)... Normal [facility] Renal function 2000 panelon 07-18-2024 Albumin [Mass/Vol] 3.2 g/dL Low 3.9-4.9 [facility] Comment on above: Order Comment: Speci men Type: BLOOD SPECIMEN Ordering Facility: [facility] Address: [address] [place] [address] Performed By: #### 2 4362-6 #### [facility] CLIA [id number] [address] [place] [address] [place] [address] [place] Anion gap [Moles/Vol] 11 mmol/L Normal 8-15 [facility] Comment on above: Order Comment: Speci men Type: BLOOD SPECIMEN Ordering Facility: [facility] Address: [address] [place] [address] Performed By: #### 2 4362-6 #### [facility] CLIA [id number] [address] [place], [place] [address] [place] Calcium [Mass/Vol] 9.3 mg/dL Normal 8.5-10.2 [facility] Comment on above: Order Comment: Speci men Type: BLOOD SPECIMEN Ordering Facility: [facility] Address: [address] [place], [place] [address] Performed By: #### 2 4362-6 #### [facility] CLIA [id number] [address] [place] [address] [place] Chloride [Moles/Vol] 102 mmol/L Normal 98-107 [facility] Comment on above: Order Comment: Speci men Type: BLOOD SPECIMEN Ordering Facility: [facility] Address: [address] [place], [place] [address] Performed By: #### 2 4362-6 #### [facility] CLIA [id number] [address] [place] [address] [place] CO2 [Moles/Vol] 25 mmol/L Normal 22-30 [facility] Comment on above: Order Comment: Speci men Type: BLOOD SPECIMEN Ordering Facility: [facility] Address: [address] [place], [place] [address] Performed By: #### 2 4362-6 #### [facility] CLIA [id number] [address] [place], [place] [address] [place] Creatinine [Mass/Vol] 0.90 mg/dL Normal 0.58-0.96 [facility] Comment on above: Order Comment: Speci men Type: BLOOD SPECIMEN Ordering Facility: [facility] Address: [address] [place], [place] [address] Performed By: #### 2 4362-6 #### [facility] CLIA [id number] [address] [place] [address] [place] Creatinine and Glomerular filtration rate.predicted panel (S/P/Bld) 63 mL/min/1.73m??? Normal >=60 [facility] Comment on above: Order Comment: Rhina mason Type: BLOOD SPECIMEN Ordering Facility: [facility] Address: [address] [place] [address] Result Comment: Isa mated Glomerular Filtration Rate [...] GFR. Performed By: #### 2 4362-6 #### [facility] CLIA [id number] [address] [place] [address] [place] Glucose [Mass/Vol] 105 mg/dL High 74-99 [facility] Comment on above: Order Comment: Rhina mason Type: BLOOD SPECIMEN Ordering Facility: [facility] Address: [address] [place] [address] Result Comment: The [place] Diabetes Association (ADA) provides guidance for cutoff [...] Standards of Medical Care in Diabetes 2016, [place] Diabetes Association. Diabetes Care. 2016.39(Suppl 1). Performed By: #### 2 4362-6 #### [facility] CLIA [id number] [address] [id number] [address] [place] Phosphate [Mass/Vol] 3.0 mg/dL Normal 2.7-4.8 [facility] Comment on above: Order Comment: Speci men Type: BLOOD SPECIMEN Ordering Facility: [facility] Address: [address] [place] [address] Performed By: #### 2 4362-6 #### [facility] CLIA [id number] [address] [place] [address] [place] Potassium [Moles/Vol] 4.5 mmol/L Normal 3.7-5.1 [facility] Comment on above: Order Comment: Speci men Type: BLOOD SPECIMEN Ordering Facility: [facility] Address: [address] [place] [address] Performed By: #### 2 4362-6 #### [facility] CLIA [id number] [address] [place] [address] [place] Sodium [Moles/Vol] 138 mmol/L Normal 136-144 [facility] Comment on above: Order Comment: Speci men Type: BLOOD SPECIMEN Ordering Facility: [facility] Address: [address] [place] [address] Performed By: #### 2 4362-6 #### [facility] CLIA [id number] [address] [place] [address] [place] Urea nitrogen [Mass/Vol] 17 mg/dL Normal 7-21 [facility] Comment on above: Order Comment: Speci men Type: BLOOD SPECIMEN Ordering Facility: [facility] Address: [address] [place] [address] Performed By: #### 2 4362-6 #### [facility] CLIA [id number] [address] [place] [address] [place] CASE MANAGEMon 07-17-2024 CASE MANAGEM HNO ID: [id number] Author: ?, ?, ? Service: ? Author Type: ? Type: Care Mgt Progress Note Filed: 07/17/2024 14:07 Note Text: CARE MANAGEMENT PROGRESS NOTE SERVICE DATE: 07/17/2024 SERVICE TIME: 2:07 PM LOS: 10 days Discharge packet completed and dropped off by legal administrative assistant Tamiko Holley. Packet is missing AVS/DC forms, please reach out to case investigator with any discharge related questions. SIGNATURE: Tamiko Holley PATIENT NAME: Mel Castillo DATE: July 17, 2024 TIME: 2:07 PM [facility] CASE MANAGEM HNO ID: [id number] Author: DOMINIQUE RAMSAY LSW Service: ? Author Type: Chief Dispatcher Service Type: Care Mgt Progress Note Filed: 07/17/2024 13:44 Note Text: CARE MANAGEMENT HOLIDAY PLANNING NOTE DISCHARGE OR POSSIBLE DISCHARGE Date/Time: 07/18 at 11am Disposition: [facility] Facility - Precert Obtained: Yes Facility Name: [facility] Facility Phone #: Transport: Mode of Transportation: Ambulance Transportation Agency and Phone #: [facility] [phone] . Date of Trip: 07/18/2024 at 11am Other Concerns: 11 am DC via [facility] trip# #[id number] to take Pt to [facility] SNF. Pre-cert is approved, a bed is available, and Pt is medically ready. 7000 has been tasked. DC packet has been tasked. DNR form is on green chart. Weekend Personal Care Aide Pager #: Please see Treatment Team for Care Management Weekend/Holiday coverage. SIGNATURE: SHAQUILLE Garay PATIENT NAME: Mel Castillo DATE: July 17, 2024 TIME: 1:42 PM PAGER/CONTACT #: [facility] CASE MANAGEM HNO ID: [id number] Author: BASILIA CAPPS, Mabel Service: ? Author Type: ? Type: Care Mgt Progress Note Filed: 07/17/2024 13:14 Note Text: [facility] PRECERT NOTE HUMAN MEDICARE PPO approved [facility] Facility for [facility] . Precert approved through 07/19/2024. For any additional questions regarding approvals, transport or care management needs, please contact the CM assigned to this patient in the Treatment Team. SIGNATURE: Basilia Kramerimelda DATE: July 17, 2024 TIME: 1:14 PM [facility] CASE MANAGEM HNO ID: [id number] Author: DOMINIQUE RAMSAY LSW Service: General Internal Medicine Author Type: Chief Dispatcher Service Type: Care Mgt Progress Note Filed: 07/17/2024 11:29 Note Text: Attestation signed by Thomas Car DO at 07/17/2024 11:37 AM Thomas Car D.O. PGY-2 Internal Medicine Resident [facility] Click here to page July 17, 2024 [...] problems. * Attending Physician: Briana Pritchard MD [facility] CBC panel Auto (Bld)on 07-17 Erythrocyte distribution width (RBC) [Ratio] 17.2 % High 11.5-15.0 [facility] Comment on above: Order Comment: Speci men Type: BLOOD SPECIMEN Ordering Facility: [facility] Address: [address] [place] [address] Performed By: #### 2 276-4 #### [facility] CLIA [id number] [address] [place] [address] [place] Hematocrit (Bld) [Volume fraction] 32.3 % Low 36.0-46.0 [facility] Comment on above: Order Comment: Speci men Type: BLOOD SPECIMEN Ordering Facility: [facility] Address: [address] [place] [address] Performed By: #### 2 276-4 #### [facility] CLIA [id number] [address] [place] [address] [place] Hemoglobin (Bld) [Mass/Vol] 10.2 g/dL Low 11.5-15.5 [facility] Comment on above: Order Comment: Speci men Type: BLOOD SPECIMEN Ordering Facility: [facility] Address: [address] [place] [address] Performed By: #### 2 276-4 #### [facility] CLIA [id number] [address] [place] [address] [place] MCH (RBC) [Entitic mass] 26.5 pg Normal 26.0-34.0 [facility] Comment on above: Order Comment: Speci men Type: BLOOD SPECIMEN Ordering Facility: [facility] Address: [address] [place] [address] Performed By: #### 2 276-4 #### [facility] CLIA [id number] [address] [place] [address] [place] MCHC (RBC) [Mass/Vol] 31.6 g/dL Normal 30.5-36.0 [facility] Comment on above: Order Comment: Speci men Type: BLOOD SPECIMEN Ordering Facility: [facility] Address: [address] [place] [address] Performed By: #### 2 276-4 #### [facility] CLIA [id number] [address] [place] [address] [place] MCV (RBC) [Entitic vol] 83.9 fL Normal 80.0-100.0 [facility] Comment on above: Order Comment: Speci men Type: BLOOD SPECIMEN Ordering Facility: [facility] Address: [address] [place] [address] Performed By: #### 2 276-4 #### [facility] CLIA [id number] [address] [place] [address] [place] Nucleated RBC (Bld) [#/Vol] 10*3/uL Normal <0.01 [facility] Comment on above: Order Comment: Speci men Type: BLOOD SPECIMEN Ordering Facility: [facility] Address: [address] [place] [address] Performed By: #### 2 276-4 #### [facility] CLIA [id number] [address] [place] [address] [place] Platelet mean volume (Bld) [Entitic vol] 9.7 fL Normal 9.0-12.7 [facility] Comment on above: Order Comment: Speci men Type: BLOOD SPECIMEN Ordering Facility: [facility] Address: [address] [place] [address] Performed By: #### 2 276-4 #### [facility] CLIA [id number] [address] [place] [address] [place] Platelets (Bld) [#/Vol] 362 10*3/uL Normal 150-400 [facility] Comment on above: Order Comment: Speci men Type: BLOOD SPECIMEN Ordering Facility: [facility] Address: [address] [place] [address] Performed By: #### 2 276-4 #### [facility] CLIA [id number] [address] [place] [address] [place] RBC (Bld) [#/Vol] 3.85 10*6/uL Low 3.90-5.20 [facility] Comment on above: Order Comment: Speci men Type: BLOOD SPECIMEN Ordering Facility: [facility] Address: [address] [place] [address] Performed By: #### 2 276-4 #### [facility] CLIA [id number] [address] [place] [address] [place] WBC (Bld) [#/Vol] 9.41 10*3/uL Normal 3.70-11.00 [facility] Comment on above: Order Comment: Speci men Type: BLOOD SPECIMEN Ordering Facility: [facility] Address: [address] [place] [address] Performed By: #### 2 276-4 #### [facility] [place] [id number] [address] [place] [address] [place] Renal function 2000 panelon 07-17-2024 Albumin [Mass/Vol] 3.3 g/dL Low 3.9-4.9 [facility] Comment on above: Order Comment: Speci men Type: BLOOD SPECIMENOrdering Facility: [facility] Address: [address] [place] [address] Performed By: #### 2 4362-6 ####[facility] [id number] [place] [address] [place] Anion gap [Moles/Vol] 10 mmol/L Normal 8-15 [facility] Comment on above: Order Comment: Speci men Type: BLOOD SPECIMENOrdering Facility: [facility] Address: [address] [place] [address] Performed By: #### 2 4362-6 ####[facility] [id number] [place] [address] [place] Calcium [Mass/Vol] 9.0 mg/dL Normal 8.5-10.2 [facility] Comment on above: Order Comment: Speci men Type: BLOOD SPECIMENOrdering Facility: [facility] Address: [address] [place] [address] Performed By: #### 2 4362-6 ####[facility] [id number] [place] [address] [place] Chloride [Moles/Vol] 101 mmol/L Normal 98-107 [facility] Comment on above: Order Comment: Speci men Type: BLOOD SPECIMENOrdering Facility: [facility] Address: [address] [place] [address] Performed By: #### 2 4362-6 ####[facility] [id number] [place] [address] [place] CO2 [Moles/Vol] 25 mmol/L Normal 22-30 [facility] Comment on above: Order Comment: Speci men Type: BLOOD SPECIMENOrdering Facility: [facility] Address: [address] [place] [address] Performed By: #### 2 4362-6 ####[facility] [id number] [place] [address] [place] Creatinine [Mass/Vol] 0.94 mg/dL Normal 0.58-0.96 [facility] Comment on above: Order Comment: Speci men Type: BLOOD SPECIMENOrdering Facility: [facility] Address: [address] [place] [address] Performed By: #### 2 4362-6 ####[facility] [id number] [address] [place] Creatinine and Glomerular filtration rate.predicted panel (S/P/Bld) 60 mL/min/1.73m??? Normal >=60 [facility] Comment on above: Order Comment: Speci men Type: BLOOD SPECIMENOrdering Facility: [facility] Address: [address] [place] [address] Result Comment: Isa mated Glomerular Filtration Rate [...] actual GFR. Performed By: #### 2 4362-6 ####[facility] [id number] [place] [address] [place] Glucose [Mass/Vol] 112 mg/dL High 74-99 [facility] Comment on above: Order Comment: Speci men Type: BLOOD SPECIMENOrdering Facility: [facility] Address: [address] [place] [address] Result Comment: The [place] Diabetes Association (ADA) provides guidance for cutoff [...] Standards of Medical Care in Diabetes 2016, [place] Diabetes Association. Diabetes Care. 2016.39(Suppl 1). Performed By: #### 2 4362-6 ####[facility] [id number] [place] [id number] [place] Phosphate [Mass/Vol] 2.2 mg/dL Low 2.7-4.8 [facility] Comment on above: Order Comment: Samiri men Type: BLOOD SPECIMENOrdering Facility: [facility] Address: [address] [place] [address] Performed By: #### 2 4362-6 ####[facility] [id number] [address] [address] [place] Potassium [Moles/Vol] 4.6 mmol/L Normal 3.7-5.1 [facility] Comment on above: Order Comment: Speci men Type: BLOOD SPECIMENOrdering Facility: [facility] Address: [address] [place] [address] Performed By: #### 2 4362-6 ####[facility] [id number] [address] [place] Sodium [Moles/Vol] 136 mmol/L Normal 136-144 [facility] Comment on above: Order Comment: Speci men Type: BLOOD SPECIMENOrdering Facility: [facility] Address: [address] [place] [address] Performed By: #### 2 4362-6 ####[facility] [id number] [address] [place] Urea nitrogen [Mass/Vol] 20 mg/dL Normal 7-21 [facility] Comment on above: Order Comment: Speci men Type: BLOOD SPECIMENOrdering Facility: [facility] Address: [address] [place] [address] Performed By: #### 2 4362-6 ####[facility]IA [id number] [address] [place] THERAPY NTon 07-17-2024 THERAPY NT HNO ID: [id number] Author: SANTIAGO GUZMAN OT/L Service: Occupational Therapy Author Type: Occupational Therapist Type: Therapy (PT/OT/Speech/Resp) Filed: 07/17/2024 15:14 Note Text: Occupational Therapy Treatment Summary SERVICE DATE: 07/17/2024 SERVICE TIME: 1425 to 1504 ROOM: [place] [address] OT 6 Clicks Score: 15 DISCHARGE RECOMMENDATIONS [...] (ADL), Muscle Weakness (generalized) TREATMENT INTERVENTIONS Self Half-Way Management (81560) Timed Code Treatment (minutes): 39 Skilled Treatment [...] Sit to Stand, Standing Balance to Improve [place] with ADLs/Self-Care, Sitting Balance to Improve [place] with ADLs/Self-Care, Life Roles/Routines/Habits THERAPEUTIC SKILLS USED [...] to Radha (more content not included)... Normal [facility] THERAPY NT HNO ID: [id number] Author: GABRIELLA DALEY PT Service: Physical Therapy Author Type: Physical Therapist Type: Therapy (PT/OT/Speech/Resp) Filed: 07/17/2024 09:31 Note Text: Physical Therapy Evaluation Summary SERVICE DATE: 07/17/2024 SERVICE TIME: 832 to 911 ROOM: [place] [address] PT 6 Clicks Score: 18 DISCHARGE RECOMMENDATIONS [...] DIAGNOSIS Reduced mobility-other TREATMENT INTERVENTIONS $ Evaluation-Moderate (95914) Billed Units: 1 unit Therapeutic Activity (08339) Treatment Minutes: 10 $ Therapeutic Activity (07207) Billed Units: 1 unit Gait Training (75077) Treatment Minutes: 14 $ Gait Training (58455) Billed Units: 1 unit Evaluation, Therapeutic Activity (76318), Gait Training (41549) Timed Code Treatment (minutes): 24 Skilled Treatment [...] Conservation Training, (more content not included)... Normal [facility] BSCAN OD (RIGHT EYE)on 07-16 [facility] Radiology Study observation (narrative) [facility] CBC panel Auto (Bld)on 07-16 Erythrocyte distribution width (RBC) [Ratio] 17.8 % High 11.5-15.0 [facility] Comment on above: Order Comment: Speci men Type: BLOOD SPECIMEN [facility] Address: [address] [place] [address] Performed By: #### 5 8410-2 #### [facility] CLIA [id number] [address] [place] [address] [place] Hematocrit (Bld) [Volume fraction] 33.2 % Low 36.0-46.0 [facility] Comment on above: Order Comment: Speci men Type: BLOOD SPECIMEN [facility] Address: [address] [place] [address] Performed By: #### 5 8410-2 #### [facility] CLIA [id number] [address] [place] [address] [place] Hemoglobin (Bld) [Mass/Vol] 10.3 g/dL Low 11.5-15.5 [facility] Comment on above: Order Comment: Speci men Type: BLOOD SPECIMEN [facility] Address: [address] [place] [address] Performed By: #### 5 8410-2 #### [facility] CLIA [id number] [address] [place] [address] [place] MCH (RBC) [Entitic mass] 25.6 pg Low 26.0-34.0 [facility] Comment on above: Order Comment: Speci men Type: BLOOD SPECIMEN [facility] Address: [address] [place] [address] Performed By: #### 5 8410-2 #### [facility] CLIA [id number] [address] [place] [address] [place] MCHC (RBC) [Mass/Vol] 31.0 g/dL Normal 30.5-36.0 [facility] Comment on above: Order Comment: Speci men Type: BLOOD SPECIMEN [facility] Address: [address] [place] [address] Performed By: #### 5 8410-2 #### [facility] CLIA [id number] [address] [place] [address] [place] MCV (RBC) [Entitic vol] 82.4 fL Normal 80.0-100.0 [facility] Comment on above: Order Comment: Speci men Type: BLOOD SPECIMEN [facility] Address: [address] [place] [address] Performed By: #### 5 8410-2 #### [facility] CLIA [id number] [address] [place] [address] [place] Nucleated RBC (Bld) [#/Vol] 10*3/uL Normal <0.01 [facility] Comment on above: Order Comment: Speci men Type: BLOOD SPECIMEN [facility] Address: [address] [place] [address] Performed By: #### 5 8410-2 #### [facility] CLIA [id number] [address] [place] [address] [place] Platelet mean volume (Bld) [Entitic vol] 9.8 fL Normal 9.0-12.7 [facility] Comment on above: Order Comment: Speci men Type: BLOOD SPECIMEN [facility] Address: [address] [place] [address] Performed By: #### 5 8410-2 #### [facility] CLIA [id number] [address] [place] [address] [place] Platelets (Bld) [#/Vol] 348 10*3/uL Normal 150-400 [facility] Comment on above: Order Comment: Speci men Type: BLOOD SPECIMEN [facility] Address: [address] [place] [address] Performed By: #### 5 8410-2 #### [facility] CLIA [id number] [address] [place] [address] [place] RBC (Bld) [#/Vol] 4.03 10*6/uL Normal 3.90-5.20 [facility] Comment on above: Order Comment: Speci men Type: BLOOD SPECIMEN [facility] Address: [address] [place] [address] Performed By: #### 5 8410-2 #### [facility] CLIA [id number] [address] [place] [address] [place] WBC (Bld) [#/Vol] 11.15 10*3/uL High 3.70-11.00 [facility] Comment on above: Order Comment: Speci men Type: BLOOD SPECIMEN [facility] Address: [address] [place] [address] Performed By: #### 5 8410-2 #### [facility] CLIA [id number] [address] [place] [address] [place] FUNDUS PHOTOS OU (BOTH EYES) on 07-16-2024 [facility] Radiology Study observation (narrative) [facility] Renal function 2000 panelon 07-16-2024 Albumin [Mass/Vol] 3.1 g/dL Low 3.9-4.9 [facility] Comment on above: Order Comment: Speci men Type: BLOOD SPECIMENOrdering Facility: [facility] Address: [address] [place] [address] Performed By: #### 2 4362-6 ####[facility] LABCLIA [id number] [place] [address] [place] Anion gap [Moles/Vol] 12 mmol/L Normal 8-15 [facility] Comment on above: Order Comment: Speci men Type: BLOOD SPECIMENOrdering Facility: [facility] Address: [address] [place] [address] Performed By: #### 2 4362-6 ####[facility] LABCLIA [id number] [place] [address] [place] Calcium [Mass/Vol] 9.0 mg/dL Normal 8.5-10.2 [facility] Comment on above: Order Comment: Speci men Type: BLOOD SPECIMENOrdering Facility: [facility] Address: [address] [place] [address] Performed By: #### 2 4362-6 ####[facility] LABCLIA [id number] [place] [address] [place] Chloride [Moles/Vol] 103 mmol/L Normal 98-107 [facility] Comment on above: Order Comment: Speci men Type: BLOOD SPECIMENOrdering Facility: [facility] Address: [address] [place] [address] Performed By: #### 2 4362-6 ####[facility] LABCLIA [id number] [place] [address] [place] CO2 [Moles/Vol] 23 mmol/L Normal 22-30 [facility] Comment on above: Order Comment: Speci men Type: BLOOD SPECIMENOrdering Facility: [facility] Address: [address] [place] [address] Performed By: #### 2 4362-6 ####[facility]IA [id number] [place] [address] [place] Creatinine [Mass/Vol] 1.09 mg/dL High 0.58-0.96 [facility] Comment on above: Order Comment: Speci men Type: BLOOD SPECIMENOrdering Facility: [facility] Address: [address] [place] [address] Performed By: #### 2 4362-6 ####[facility]IA [id number] [place] [address] [place] Creatinine and Glomerular filtration rate.predicted panel (S/P/Bld) 50 mL/min/1.73m??? Low >=60 [facility] Comment on above: Order Comment: Speci men Type: BLOOD SPECIMENOrdering Facility: [facility] Address: [address] [place] [address] Result Comment: Isa mated Glomerular Filtration Rate [...] actual GFR. Performed By: #### 2 4362-6 ####[facility] LABCLIA [id number] [place] [id number] [place] Glucose [Mass/Vol] 103 mg/dL High 74-99 [facility] Comment on above: Order Comment: Speci men Type: BLOOD SPECIMENOrdering Facility: [facility] Address: [address] [place] [address] Result Comment: The [place] Diabetes Association (ADA) provides guidance for cutoff [...] Standards of Medical Care in Diabetes 2016, [place] Diabetes Association. Diabetes Care. 2016.39(Suppl 1). Performed By: #### 2 4362-6 ####[facility] LABCLIA [id number] [place] [address] [place] Phosphate [Mass/Vol] 2.9 mg/dL Normal 2.7-4.8 [facility] Comment on above: Order Comment: Speci men Type: BLOOD SPECIMENOrdering Facility: [facility] Address: [address] [place] [address] Performed By: #### 2 4362-6 ####[facility] LABCLIA [id number] [place] [address] [place] Potassium [Moles/Vol] 4.5 mmol/L Normal 3.7-5.1 [facility] Comment on above: Order Comment: Speci men Type: BLOOD SPECIMENOrdering Facility: [facility] Address: [address] [place], [place] [address] Performed By: #### 2 4362-6 ####[facility] LABCLIA [id number] [place] [address] [place] Sodium [Moles/Vol] 138 mmol/L Normal 136-144 [facility] Comment on above: Order Comment: Speci men Type: BLOOD SPECIMENOrdering Facility: [facility] Address: [address] [place] [address] Performed By: #### 2 4362-6 ####[facility] LABCLIA [id number] [address] [place] Urea nitrogen [Mass/Vol] 22 mg/dL High 7-21 [facility] Comment on above: Order Comment: Speci men Type: BLOOD SPECIMENOrdering Facility: [facility] Address: [address] [place] [address] Performed By: #### 2 4362-6 ####[facility] LABCLIA [id number] [address] [place] THERAPY NTon 07-16-2024 THERAPY NT HNO ID: [id number] Author: SANTIAGO GUZMAN OT/L Service: Occupational Therapy Author Type: Occupational Therapist Type: Therapy (PT/OT/Speech/Resp) Filed: 07/16/2024 15:10 Note Text: Occupational Therapy Treatment Summary SERVICE DATE: 07/16/2024 SERVICE TIME: 1415 to 1500 ROOM: [place] [address] OT 6 Clicks Score: 15 DISCHARGE RECOMMENDATIONS [...] (ADL), Muscle Weakness (generalized) TREATMENT INTERVENTIONS Self Half-Way Management (79440) Timed Code Treatment (minutes): 45 Skilled Treatment [...] Sit to Stand, Standing Balance to Improve [place] with ADLs/Self-Care, Sitting Balance to Improve [place] with ADLs/Self-Care, Life Roles/Routines/Habits THERAPEUTIC SKILLS USED [...] Assistance Sit (more content not included)... Normal [facility] CBC panel Auto (Bld)on 07-15 Erythrocyte distribution width (RBC) [Ratio] 17.8 % High 11.5-15.0 [facility] Comment on above: Order Comment: Speci men Type: BLOOD SPECIMEN [facility] Address: [address] [place] [address] Performed By: #### 2 4362-6 #### [facility] CLIA [id number] [address] [place] [address] [place] Hematocrit (Bld) [Volume fraction] 34.4 % Low 36.0-46.0 [facility] Comment on above: Order Comment: Speci men Type: BLOOD SPECIMEN [facility] Address: [address] [place] [address] Performed By: #### 2 4362-6 #### [facility] CLIA [id number] [address] [place] [address] [place] Hemoglobin (Bld) [Mass/Vol] 10.7 g/dL Low 11.5-15.5 [facility] Comment on above: Order Comment: Speci men Type: BLOOD SPECIMEN [facility] Address: [address] [place] [address] Performed By: #### 2 4362-6 #### [facility] CLIA [id number] [address] [place] [address] [place] MCH (RBC) [Entitic mass] 26.2 pg Normal 26.0-34.0 [facility] Comment on above: Order Comment: Speci men Type: BLOOD SPECIMEN [facility] Address: [address] [place] [address] Performed By: #### 2 4362-6 #### [facility] CLIA [id number] [address] [place] [address] [place] MCHC (RBC) [Mass/Vol] 31.1 g/dL Normal 30.5-36.0 [facility] Comment on above: Order Comment: Speci men Type: BLOOD SPECIMEN [facility] Address: [address] [place] [address] Performed By: #### 2 4362-6 #### [facility] CLIA [id number] [address] [place] [address] [place] MCV (RBC) [Entitic vol] 84.1 fL Normal 80.0-100.0 [facility] Comment on above: Order Comment: Speci men Type: BLOOD SPECIMEN [facility] Address: [address] [place] [address] Performed By: #### 2 4362-6 #### [facility] CLIA [id number] [address] [place] [address] [place] Nucleated RBC (Bld) [#/Vol] 10*3/uL Normal <0.01 [facility] Comment on above: Order Comment: Speci men Type: BLOOD SPECIMEN [facility] Address: [address] [place] [address] Performed By: #### 2 4362-6 #### [facility] CLIA [id number] [address] [place] [address] [place] Platelet mean volume (Bld) [Entitic vol] 10.1 fL Normal 9.0-12.7 [facility] Comment on above: Order Comment: Speci men Type: BLOOD SPECIMEN [facility] Address: [address] [place] [address] Performed By: #### 2 4362-6 #### [facility] CLIA [id number] [address] [place] [address] [place] Platelets (Bld) [#/Vol] 386 10*3/uL Normal 150-400 [facility] Comment on above: Order Comment: Speci men Type: BLOOD SPECIMEN [facility] Address: [address] [place] [address] Performed By: #### 2 4362-6 #### [facility] CLIA [id number] [address] [place] [address] [place] RBC (Bld) [#/Vol] 4.09 10*6/uL Normal 3.90-5.20 [facility] Comment on above: Order Comment: Speci men Type: BLOOD SPECIMEN [facility] Address: [address] [place] [address] Performed By: #### 2 4362-6 #### [facility] CLIA [id number] [address] [place] [address] [place] WBC (Bld) [#/Vol] 10.20 10*3/uL Normal 3.70-11.00 [facility] Comment on above: Order Comment: Speci men Type: BLOOD SPECIMEN [facility] Address: [address] [place] [address] Performed By: #### 2 4362-6 #### [facility] CLIA [id number] [address] [place] [address] [place] Renal function 2000 panelon 07-15-2024 Albumin [Mass/Vol] 3.5 g/dL Low 3.9-4.9 [facility] Comment on above: Order Comment: Speci men Type: BLOOD SPECIMENOrdering Facility: [facility] Address: [address] [place], [place] [address] Performed By: #### 2 4362-6 ####[facility] LABCLIA [id number] [place] [address] [place] Anion gap [Moles/Vol] 12 mmol/L Normal 8-15 [facility] Comment on above: Order Comment: Speci men Type: BLOOD SPECIMENOrdering Facility: [facility] Address: [address] [place] [address] Performed By: #### 2 4362-6 ####[facility] LABCLIA [id number] [place] [address] [place] Calcium [Mass/Vol] 9.1 mg/dL Normal 8.5-10.2 [facility] Comment on above: Order Comment: Speci men Type: BLOOD SPECIMENOrdering Facility: [facility] Address: [address] [place] [address] Performed By: #### 2 4362-6 ####[facility] LABCLIA [id number] [place] [address] [place] Chloride [Moles/Vol] 101 mmol/L Normal 98-107 [facility] Comment on above: Order Comment: Speci men Type: BLOOD SPECIMENOrdering Facility: [facility] Address: [address] [place] [address] Performed By: #### 2 4362-6 ####[facility] LABCLIA [id number] [place] [id number] [place] CO2 [Moles/Vol] 24 mmol/L Normal 22-30 [facility] Comment on above: Order Comment: Speci men Type: BLOOD SPECIMENOrdering Facility: [facility] Address: [address] [place], [place] [address] Performed By: #### 2 4362-6 ####[facility] LABCLIA [id number] [place] [id number] [place] Creatinine [Mass/Vol] 0.96 mg/dL Normal 0.58-0.96 [facility] Comment on above: Order Comment: Rhina mason Type: BLOOD SPECIMENOrdering Facility: [facility] Address: [address] [place] [address] Performed By: #### 2 4362-6 ####[facility]IA [id number] [place] [address] [place] [facility] Creatinine and Glomerular filtration rate.predicted panel (S/P/Bld) 58 mL/min/1.73m??? Low >=60 [facility] Comment on above: Order Comment: Rhina mason Type: BLOOD SPECIMENOrdering Facility: [facility] Address: [address] [place] [address] Result Comment: Isa mated Glomerular Filtration Rate [...] actual GFR. Performed By: #### 2 4362-6 ####[facility]IA [id number] [place] [address] [place] Glucose [Mass/Vol] 93 mg/dL Normal 74-99 [facility] Comment on above: Order Comment: Rhina mason Type: BLOOD SPECIMENOrdering Facility: [facility] Address: [address] [place] [address] Result Comment: The [place] Diabetes Association (ADA) provides guidance for cutoff [...] Standards of Medical Care in Diabetes 2016, [place] Diabetes Association. Diabetes Care. 2016.39(Suppl 1). Performed By: #### 2 4362-6 ####[facility] LABCLIA [id number] [place] [address] [place] Phosphate [Mass/Vol] 3.1 mg/dL Normal 2.7-4.8 [facility] Comment on above: Order Comment: Speci men Type: BLOOD SPECIMENOrdering Facility: [facility] Address: [address] [place] [address] Performed By: #### 2 4362-6 ####[facility]IA [id number] [place] [address] [place] Potassium [Moles/Vol] 4.3 mmol/L Normal 3.7-5.1 [facility] Comment on above: Order Comment: Speci men Type: BLOOD SPECIMENOrdering Facility: [facility] Address: [address] [place] [address] Performed By: #### 2 4362-6 ####[facility]IA [id number] [place] [address] [place] Sodium [Moles/Vol] 137 mmol/L Normal 136-144 [facility] Comment on above: Order Comment: Speci men Type: BLOOD SPECIMENOrdering Facility: [facility] Address: [address] [place] [address] Performed By: #### 2 4362-6 ####[facility]IA [id number] [place] [address] [place] Urea nitrogen [Mass/Vol] 19 mg/dL Normal 7-21 [facility] Comment on above: Order Comment: Speci men Type: BLOOD SPECIMENOrdering Facility: [facility] Address: [address] [place] [address] Performed By: #### 2 4362-6 ####[facility] LABCLIA [id number] [place] [address] [place] CBC panel Auto (Bld)on 07-14 Erythrocyte distribution width (RBC) [Ratio] 17.9 % High 11.5-15.0 [facility] Comment on above: Order Comment: Speci men Type: BLOOD SPECIMEN [facility] Address: [address] [place] [address] Performed By: #### 2 4362-6 #### [facility] CLIA [id number] [address] [place] [address] [place] Hematocrit (Bld) [Volume fraction] 33.8 % Low 36.0-46.0 [facility] Comment on above: Order Comment: Speci men Type: BLOOD SPECIMEN [facility] Address: [address] [place] [address] Performed By: #### 2 4362-6 #### [facility] CLIA [id number] [address] [place] [address] [place] Hemoglobin (Bld) [Mass/Vol] 10.7 g/dL Low 11.5-15.5 [facility] Comment on above: Order Comment: Speci men Type: BLOOD SPECIMEN [facility] Address: [address] [place] [address] Performed By: #### 2 4362-6 #### [facility] CLIA [id number] [address] [place] [address] [place] MCH (RBC) [Entitic mass] 26.4 pg Normal 26.0-34.0 [facility] Comment on above: Order Comment: Speci men Type: BLOOD SPECIMEN [facility] Address: [address] [place] [address] Performed By: #### 2 4362-6 #### [facility] CLIA [id number] [address] [place] [address] [place] MCHC (RBC) [Mass/Vol] 31.7 g/dL Normal 30.5-36.0 [facility] Comment on above: Order Comment: Speci men Type: BLOOD SPECIMEN [facility] Address: [address] [place] [address] Performed By: #### 2 4362-6 #### [facility] CLIA [id number] [address] [place] [address] [place] MCV (RBC) [Entitic vol] 83.5 fL Normal 80.0-100.0 [facility] Comment on above: Order Comment: Speci men Type: BLOOD SPECIMEN [facility] Address: [address] [place] [address] Performed By: #### 2 4362-6 #### [facility] CLIA [id number] [address] [place] [address] [place] Nucleated RBC (Bld) [#/Vol] 10*3/uL Normal <0.01 [facility] Comment on above: Order Comment: Speci men Type: BLOOD SPECIMEN [facility] Address: [address] [place] [address] Performed By: #### 2 4362-6 #### [facility] CLIA [id number] [address] [place] [address] [place] Platelet mean volume (Bld) [Entitic vol] 10.3 fL Normal 9.0-12.7 [facility] Comment on above: Order Comment: Speci men Type: BLOOD SPECIMEN [facility] Address: [address] [place] [address] Performed By: #### 2 4362-6 #### [facility] CLIA [id number] [address] [place] [address] [place] Platelets (Bld) [#/Vol] 345 10*3/uL Normal 150-400 [facility] Comment on above: Order Comment: Speci men Type: BLOOD SPECIMEN [facility] Address: [address] [place] [address] Performed By: #### 2 4362-6 #### [facility] CLIA [id number] [address] [place] [address] [place] RBC (Bld) [#/Vol] 4.05 10*6/uL Normal 3.90-5.20 [facility] Comment on above: Order Comment: Speci men Type: BLOOD SPECIMEN Ordering Facility: [facility] Address: [address] [place] [address] Performed By: #### 2 4362-6 #### [facility] CLIA [id number] [address] [place] [address] [place] WBC (Bld) [#/Vol] 11.07 10*3/uL High 3.70-11.00 [facility] Comment on above: Order Comment: Speci men Type: BLOOD SPECIMEN Ordering Facility: [facility] Address: [address] [place] [address] Performed By: #### 2 4362-6 #### [facility] CLIA [id number] [address] [place] [address] [place] Renal function 2000 panelon 07-14-2024 Albumin [Mass/Vol] 3.5 g/dL Low 3.9-4.9 [facility] Comment on above: Order Comment: Speci men Type: BLOOD SPECIMEN Ordering Facility: [facility] Address: [address] [place] [address] Performed By: #### 2 4362-6 #### [facility] CLIA [id number] [address] [place] [address] [place] Anion gap [Moles/Vol] 14 mmol/L Normal 8-15 [facility] Comment on above: Order Comment: Speci men Type: BLOOD SPECIMEN Ordering Facility: [facility] Address: [address] [id number] Performed By: #### 2 4362-6 #### [facility] CLIA [id number] [address] [place] [address] [place] Calcium [Mass/Vol] 9.1 mg/dL Normal 8.5-10.2 [facility] Comment on above: Order Comment: Speci men Type: BLOOD SPECIMEN Ordering Facility: [facility] Address: [address] [place], [place] [address] Performed By: #### 2 4362-6 #### [facility] CLIA [id number] [address] [place] [address] [place] Chloride [Moles/Vol] 98 mmol/L Normal 98-107 [facility] Comment on above: Order Comment: Speci men Type: BLOOD SPECIMEN Ordering Facility: [facility] Address: [address] [place], [place] [address] Performed By: #### 2 4362-6 #### [facility] CLIA [id number] [address] [place] [address] [place] CO2 [Moles/Vol] 22 mmol/L Normal 22-30 [facility] Comment on above: Order Comment: Speci men Type: BLOOD SPECIMEN Ordering Facility: [facility] Address: [address] [place], [place] [address] Performed By: #### 2 4362-6 #### [facility] CLIA [id number] [address] [place], [place] [address] [place] Creatinine [Mass/Vol] 1.01 mg/dL High 0.58-0.96 [facility] Comment on above: Order Comment: Speci men Type: BLOOD SPECIMEN Ordering Facility: [facility] Address: [address] [place], [place] [address] Performed By: #### 2 4362-6 #### [facility] CLIA [id number] [address] [place], [place] [address] [place] Creatinine and Glomerular filtration rate.predicted panel (S/P/Bld) 55 mL/min/1.73m??? Low >=60 [facility] Comment on above: Order Comment: Rhina mason Type: BLOOD SPECIMEN Ordering Facility: [facility] Address: [address] [place] [address] Result Comment: Isa mated Glomerular Filtration Rate [...] GFR. Performed By: #### 2 4362-6 #### [facility] CLIA [id number] [address] [place] [address] [place] Glucose [Mass/Vol] 131 mg/dL High 74-99 [facility] Comment on above: Order Comment: Rhina mason Type: BLOOD SPECIMEN Ordering Facility: [facility] Address: [address] [place] [address] Result Comment: The [place] Diabetes Association (ADA) provides guidance for cutoff [...] Standards of Medical Care in Diabetes 2016, [place] Diabetes Association. Diabetes Care. 2016.39(Suppl 1). Performed By: #### 2 4362-6 #### [facility] CLIA [id number] [address] [place] [address] [place] Phosphate [Mass/Vol] 3.5 mg/dL Normal 2.7-4.8 [facility] Comment on above: Order Comment: Speci men Type: BLOOD SPECIMEN Ordering Facility: [facility] Address: [address] [place] [address] Performed By: #### 2 4362-6 #### [facility] CLIA [id number] [address] [place] [address] [place] Potassium [Moles/Vol] 4.1 mmol/L Normal 3.7-5.1 [facility] Comment on above: Order Comment: Speci men Type: BLOOD SPECIMEN Ordering Facility: [facility] Address: [address] [place] [address] Performed By: #### 2 4362-6 #### [facility] CLIA [id number] [address] [place] [address] [place] Sodium [Moles/Vol] 134 mmol/L Low 136-144 [facility] Comment on above: Order Comment: Speci men Type: BLOOD SPECIMEN Ordering Facility: [facility] Address: [address] [place] [address] Performed By: #### 2 4362-6 #### [facility] CLIA [id number] [address] [place] [address] [place] Urea nitrogen [Mass/Vol] 19 mg/dL Normal 7-21 [facility] Comment on above: Order Comment: Speci men Type: BLOOD SPECIMEN Ordering Facility: [facility] Address: [address] [place] [address] Performed By: #### 2 4362-6 #### [facility] CLIA [id number] [address] [place] [address] [place] ANES POSTPROC EVALon 024 ANES POSTPROC EVAL HNO ID: [id number] Author: SIERRA FALK MD Service: ? Author Type: Anesthesiologist Type: Anesthesia Postprocedure Evaluation Filed: 07/13/2024 15:57 Note Text: POST ANESTHESIA EVALUATION NOTE : 1940 Procedure Summary Date: 07/13/24 Room / Location: [address] Anesthesia Start: 1222 Anesthesia Stop: 1337 [...] July 13, 2024 TIME: 3:57 PM CSN: [id number] Normal [facility] ANES PRE-OPon 07-13-2024 ANES PRE-OP HNO ID: [id number] Author: SIERRA FALK MD Service: ? Author Type: Anesthesiologist Type: Anesthesia Preprocedure Evaluation Filed: 07/13/2024 09:44 Note Text: ANESTHESIOLOGY DAY OF SURGERY NOTE : 1940 Procedure Information Date/Time: 07/13/24 1404 Procedure: ASPIRATION VITREOUS, CHOROIDAL FLUID, PARS PLANA APPROACH (Right: Eye) Location: [address] Surgeons: Savana Lopez MD Estimated body [...] and consent discussed: yes. Patient / Responsible Libertarian agrees to proceed: yes Patient / Surrogate [...] 0.5 tablets by mouth every 12 hours. grgnswirevo-whaytplxc-l ilanter (TRELEGY ELLIPTA) 100-62.5-25 mcg inhalation powder Inhale 1 Puff as instructed once daily. acetaminophen (TYLENOL) 325 mg tablet Take 2 tablets by mouth every 6 hours as needed for pain. ascorbic acid (more content not included)... Normal [facility] CASE MANAGEMon 07-13-2024 CASE MANAGEM HNO ID: [id number] Author: REBECA BELLE LSW Service: ? Author Type: Chief Dispatcher Service Type: Care Mgt Progress Note Filed: 07/13/2024 16:25 Note Text: CARE MANAGEMENT WEEKEND PLANNING NOTE NO WEEKEND DISCHARGE Disposition: Halfway Facility Anticipated Discharge Date: TBD CM followed up with pt's daughter for SNF choices. Pt is currently in the OR- unable to send referrals in careport or complete "edit note" side bar. 1)[facility] 2)[facility] 3)[facility] 4)[facility] 5)[facility] Will need accepting SNF and precert prior to dc. UPDATE 4:24pm: Referrals sent; awaiting response. Weekend Personal Care Aide Pager #: Please see Treatment Team for Care Management Weekend/Holiday coverage. SIGNATURE: SHAQUILLE Nuñez PATIENT NAME: Mel Castillo DATE: July 13, 2024 TIME: 3:09 PM PAGER/CONTACT #: [phone] Normal [facility] CBC panel Auto (Bld)on 07-13 Erythrocyte distribution width (RBC) [Ratio] 17.6 % High 11.5-15.0 [facility] Comment on above: Order Comment: Speci men Type: BLOOD SPECIMENOrdering Facility: [facility] Address: [address] [place], [place] [address] Performed By: #### 5 8410-2 ####[facility] [id number] [place] [address] [place] Hematocrit (Bld) [Volume fraction] 34.5 % Low 36.0-46.0 [facility] Comment on above: Order Comment: Speci men Type: BLOOD SPECIMENOrdering Facility: [facility] Address: [address] [place] [address] Performed By: #### 5 8410-2 ####[facility] [id number] [place] [address] [place] Hemoglobin (Bld) [Mass/Vol] 10.8 g/dL Low 11.5-15.5 [facility] Comment on above: Order Comment: Speci men Type: BLOOD SPECIMENOrdering Facility: [facility] Address: [address] [place] [address] Performed By: #### 5 8410-2 ####[facility] [id number] [place] [address] [place] MCH (RBC) [Entitic mass] 26.1 pg Normal 26.0-34.0 [facility] Comment on above: Order Comment: Speci men Type: BLOOD SPECIMENOrdering Facility: [facility] Address: [address] [place] [address] Performed By: #### 5 8410-2 ####[facility] [id number] [place] [address] [place] MCHC (RBC) [Mass/Vol] 31.3 g/dL Normal 30.5-36.0 [facility] Comment on above: Order Comment: Speci men Type: BLOOD SPECIMENOrdering Facility: [facility] Address: [address] [place] [address] Performed By: #### 5 8410-2 ####[facility] [id number] [place] [address] [place] MCV (RBC) [Entitic vol] 83.3 fL Normal 80.0-100.0 [facility] Comment on above: Order Comment: Speci men Type: BLOOD SPECIMENOrdering Facility: [facility] Address: [address] [place] [address] Performed By: #### 5 8410-2 ####[facility] [id number] [place] [address] [place] Nucleated RBC (Bld) [#/Vol] 10*3/uL Normal <0.01 [facility] Comment on above: Order Comment: Speci men Type: BLOOD SPECIMENOrdering Facility: [facility] Address: [address] [place] [address] Performed By: #### 5 8410-2 ####[facility] [id number] [place] [address] [place] Platelet mean volume (Bld) [Entitic vol] 9.7 fL Normal 9.0-12.7 [facility] Comment on above: Order Comment: Speci men Type: BLOOD SPECIMENOrdering Facility: [facility] Address: [address] [place] [address] Performed By: #### 5 8410-2 ####[facility] [id number] [place] [address] [place] Platelets (Bld) [#/Vol] 334 10*3/uL Normal 150-400 [facility] Comment on above: Order Comment: Speci men Type: BLOOD SPECIMENOrdering Facility: [facility] Address: [address] [place] [address] Performed By: #### 5 8410-2 ####[facility] [id number] [place] [address] [place] RBC (Bld) [#/Vol] 4.14 10*6/uL Normal 3.90-5.20 [facility] Comment on above: Order Comment: Speci men Type: BLOOD SPECIMENOrdering Facility: [facility] Address: [address] [place] [address] Performed By: #### 5 8410-2 ####[facility] [id number] [address] [id number] [place] WBC (Bld) [#/Vol] 10.74 10*3/uL Normal 3.70-11.00 [facility] Comment on above: Order Comment: Speci men Type: BLOOD SPECIMENOrdering Facility: [facility] Address: [address] [place] [address] Performed By: #### 5 8410-2 ####[facility] [id number] [place] [address] [place] ECHO WITH AGITATED SALINE CO NTRASTon 07-13-2024 ECHO WITH AGITATED SALINE CONTRAST Echocardiography Report: Transthoracic Echo [facility] Bedside Date of service: 07/13/2024 3:54:27 PM [employer] Ordering physician: FELICIA LEVY Indication: Limited KYLE [...] * * Final * * * CC [facility] : [id number] Normal [facility] NUTRITIONon 07-13-2024 NUTRITION HNO ID: [id number] Author: PAWAN PRESLEY DTR Service: Nutrition Therapy Author Type: Associate Designer Type: Nutrition Filed: 07/13/2024 11:50 Note Text: NUTRITION THERAPY SCHEDULING SPECIALIST NOTE SERVICE DATE: 07/13/2024 SERVICE TIME: 1045 [...] July 13, 2024 TIME: 11:49 AM Normal [facility] OPERATIVE NOon 07-13-2024 OPERATIVE NO HNO ID: [id number] Author: SAVANA LOPEZ MD Service: Ophthalmology Author Type: Physician Type: Operative Report Filed: 07/13/2024 13:32 Note Text: [place] [address] [facility] OPERATIVE REPORT LOG ID: [id number] Surgery/Procedure Date: 07/13/2024 Incision/Procedure Start Time: 12:43 PM Incision Close/Procedure End Time: 1:32 PM NAME: Mel Pop [facility] #: [id number] SURGEON(S) AND SLATE WORKER(S): Surgeons and Role: * Savana Lopez MD [...] MD Vitreoretinal Surgery AND Ocular Inflammatory Diseases [facility] [place] Normal [facility] Renal function 2000 panelon 07-13-2024 Albumin [Mass/Vol] 3.5 g/dL Low 3.9-4.9 [facility] Comment on above: Order Comment: Speci men Type: BLOOD SPECIMENOrdering Facility: [facility] Address: [address] [place] [address] Performed By: #### 2 4362-6 ####[facility] [id number] [place] [address] [place] Anion gap [Moles/Vol] 10 mmol/L Normal 8-15 [facility] Comment on above: Order Comment: Speci men Type: BLOOD SPECIMENOrdering Facility: [facility] Address: [address] [place] [address] Performed By: #### 2 4362-6 ####[facility]IA [id number] [place] [address] [place] Calcium [Mass/Vol] 9.3 mg/dL Normal 8.5-10.2 [facility] Comment on above: Order Comment: Speci men Type: BLOOD SPECIMENOrdering Facility: [facility] Address: [address] [place] [address] Performed By: #### 2 4362-6 ####[facility] [id number] [place] [address] [place] Chloride [Moles/Vol] 100 mmol/L Normal 98-107 [facility] Comment on above: Order Comment: Speci men Type: BLOOD SPECIMENOrdering Facility: [facility] Address: [address] [place] [address] Performed By: #### 2 4362-6 ####[facility]IA [id number] [place] [address] [place] CO2 [Moles/Vol] 27 mmol/L Normal 22-30 [facility] Comment on above: Order Comment: Speci men Type: BLOOD SPECIMENOrdering Facility: [facility] Address: [address] [place] [address] Performed By: #### 2 4362-6 ####[facility]IA [id number] [place] [address] [place] Creatinine [Mass/Vol] 0.92 mg/dL Normal 0.58-0.96 [facility] Comment on above: Order Comment: Speci men Type: BLOOD SPECIMENOrdering Facility: [facility] Address: [address] [place] [address] Performed By: #### 2 4362-6 ####[facility] [id number] [place] [address] [place] Creatinine and Glomerular filtration rate.predicted panel (S/P/Bld) 62 mL/min/1.73m??? Normal >=60 [facility] Comment on above: Order Comment: Speci men Type: BLOOD SPECIMENOrdering Facility: [facility] Address: [address] [place] [address] Result Comment: Isa mated Glomerular Filtration Rate [...] actual GFR. Performed By: #### 2 4362-6 ####[facility]IA [id number] [place] [address] [place] Glucose [Mass/Vol] 103 mg/dL High 74-99 [facility] Comment on above: Order Comment: Speci men Type: BLOOD SPECIMENOrdering Facility: [facility] Address: [address] [place] [address] Result Comment: The [place] Diabetes Association (ADA) provides guidance for cutoff [...] Standards of Medical Care in Diabetes 2016, [place] Diabetes Association. Diabetes Care. 2016.39(Suppl 1). Performed By: #### 2 4362-6 ####[facility] [id number] [place] [address] [place] Phosphate [Mass/Vol] 3.5 mg/dL Normal 2.7-4.8 [facility] Comment on above: Order Comment: Speci men Type: BLOOD SPECIMENOrdering Facility: [facility] Address: [address] [place] [address] Performed By: #### 2 4362-6 ####[facility]IA [id number] [place] [address] [place] Potassium [Moles/Vol] 4.2 mmol/L Normal 3.7-5.1 [facility] Comment on above: Order Comment: Speci men Type: BLOOD SPECIMENOrdering Facility: [facility] Address: [address] [address] Performed By: #### 2 4362-6 ####[facility]IA [id number] [place] [address] [place] Sodium [Moles/Vol] 137 mmol/L Normal 136-144 [facility] Comment on above: Order Comment: Speci men Type: BLOOD SPECIMENOrdering Facility: [facility] Address: [address] [place] [address] Performed By: #### 2 4362-6 ####[facility]IA [id number] [place] [address] [place] Urea nitrogen [Mass/Vol] 12 mg/dL Normal 7-21 [facility] Comment on above: Order Comment: Speci men Type: BLOOD SPECIMENOrdering Facility: [facility] Address: [address] [place] [address] Performed By: #### 2 4362-6 ####[facility]IA [id number] [place] [address] [place] BSCAN OD (RIGHT EYE)on 07-12 [facility] Radiology Study observation (narrative) [facility] CBC panel Auto (Bld)on 07-12 Erythrocyte distribution width (RBC) [Ratio] 17.8 % High 11.5-15.0 [facility] Comment on above: Order Comment: Speci men Type: BLOOD SPECIMENOrdering Facility: [facility] Address: [address] [place] [address] Performed By: #### 5 8410-2 ####[facility]IA [id number] [place] [address] [place] Hematocrit (Bld) [Volume fraction] 34.7 % Low 36.0-46.0 [facility] Comment on above: Order Comment: Speci men Type: BLOOD SPECIMENOrdering Facility: [facility] Address: [address] [place] [address] Performed By: #### 5 8410-2 ####[facility]IA [id number] [place] [address] [place] Hemoglobin (Bld) [Mass/Vol] 10.6 g/dL Low 11.5-15.5 [facility] Comment on above: Order Comment: Speci men Type: BLOOD SPECIMENOrdering Facility: [facility] Address: [address] [place] [address] Performed By: #### 5 8410-2 ####[facility]IA [id number] [place] [address] [place] MCH (RBC) [Entitic mass] 26.4 pg Normal 26.0-34.0 [facility] Comment on above: Order Comment: Speci men Type: BLOOD SPECIMENOrdering Facility: [facility] Address: [address] [place] [address] Performed By: #### 5 8410-2 ####[facility]IA [id number] [place] [address] [place] MCHC (RBC) [Mass/Vol] 30.5 g/dL Normal 30.5-36.0 [facility] Comment on above: Order Comment: Speci men Type: BLOOD SPECIMENOrdering Facility: [facility] Address: [address] [place] [address] Performed By: #### 5 8410-2 ####[facility] [id number] [place] [address] [place] MCV (RBC) [Entitic vol] 86.3 fL Normal 80.0-100.0 [facility] Comment on above: Order Comment: Speci men Type: BLOOD SPECIMENOrdering Facility: [facility] Address: [address] [place] [address] Performed By: #### 5 8410-2 ####[facility]IA [id number] [place] [address] [place] Nucleated RBC (Bld) [#/Vol] 10*3/uL Normal <0.01 [facility] Comment on above: Order Comment: Speci men Type: BLOOD SPECIMENOrdering Facility: [facility] Address: [address] [place] [address] Performed By: #### 5 8410-2 ####[facility]IA [id number] [id number] [address] [place] Platelet mean volume (Bld) [Entitic vol] 9.9 fL Normal 9.0-12.7 [facility] Comment on above: Order Comment: Speci men Type: BLOOD SPECIMENOrdering Facility: [facility] Address: [address] [place] [address] Performed By: #### 5 8410-2 ####[facility]IA [id number] [place] [address] [place] Platelets (Bld) [#/Vol] 301 10*3/uL Normal 150-400 [facility] Comment on above: Order Comment: Speci men Type: BLOOD SPECIMENOrdering Facility: [facility] Address: [address] [place] [address] Performed By: #### 5 8410-2 ####[facility]IA [id number] [place] [address] [place] RBC (Bld) [#/Vol] 4.02 10*6/uL Normal 3.90-5.20 [facility] Comment on above: Order Comment: Speci men Type: BLOOD SPECIMENOrdering Facility: [facility] Address: [address] [place] [address] Performed By: #### 5 8410-2 ####[facility]IA [id number] [place] [address] [place] WBC (Bld) [#/Vol] 10.07 10*3/uL Normal 3.70-11.00 [facility] Comment on above: Order Comment: Speci men Type: BLOOD SPECIMENOrdering Facility: [facility] Address: [address] [place] [address] Performed By: #### 5 8410-2 ####[facility] [id number] [place] [address] [place] PT EDon 07-12-2024 PT ED HNO ID: [id number] Author: GISSELL POPE RPh Service: Pharmacy Author [...] inpatient anticoagulant education. Gissell Pope RPh Normal [facility] Renal function 2000 panelon 07-12-2024 Albumin [Mass/Vol] 3.4 g/dL Low 3.9-4.9 [facility] Comment on above: Order Comment: Speci men Type: BLOOD SPECIMENOrdering Facility: [facility] Address: [address] [place] [address] Performed By: #### 2 4362-6 ####[facility]CLIA [id number] [place] [address] [place] Anion gap [Moles/Vol] 14 mmol/L Normal 8-15 [facility] Comment on above: Order Comment: Speci isabella Type: BLOOD SPECIMENOrdering Facility: [facility] Address: [address] [address] Performed By: #### 2 4362-6 ####[facility]IA [id number] [place] [address] [place] Calcium [Mass/Vol] 9.3 mg/dL Normal 8.5-10.2 [facility] Comment on above: Order Comment: Speci men Type: BLOOD SPECIMENOrdering Facility: [facility] Address: [address] [place] [address] Performed By: #### 2 4362-6 ####[facility] [id number] [place] [address] [place] Chloride [Moles/Vol] 101 mmol/L Normal 98-107 [facility] Comment on above: Order Comment: Speci men Type: BLOOD SPECIMENOrdering Facility: [facility] Address: [address] [place] [address] Performed By: #### 2 4362-6 ####[facility]IA [id number] [place] [address] [place] CO2 [Moles/Vol] 21 mmol/L Low 22-30 [facility] Comment on above: Order Comment: Speci men Type: BLOOD SPECIMENOrdering Facility: [facility] Address: [address] [place] [address] Performed By: #### 2 4362-6 ####[facility]IA [id number] [place] [address] [place] Creatinine [Mass/Vol] 0.81 mg/dL Normal 0.58-0.96 [facility] Comment on above: Order Comment: Speci men Type: BLOOD SPECIMENOrdering Facility: [facility] [facility] Address: [address] [place] [address] Performed By: #### 2 4362-6 ####[facility] LABIA [id number] [address] [place] Creatinine and Glomerular filtration rate.predicted panel (S/P/Bld) 72 mL/min/1.73m??? Normal >=60 [facility] Comment on above: Order Comment: Speci men Type: BLOOD SPECIMENOrdering Facility: [facility] Address: [address] [place] [address] Result Comment: Isa mated Glomerular Filtration Rate [...] actual GFR. Performed By: #### 2 4362-6 ####[facility] LABCLIA [id number] [place] [address] [place] Glucose [Mass/Vol] 100 mg/dL High 74-99 [facility] Comment on above: Order Comment: Speci men Type: BLOOD SPECIMENOrdering Facility: [facility] Address: [address] [place] [address] Result Comment: The Australian Diabetes Association (ADA) provides guidance for cutoff [...] Standards of Medical Care in Diabetes 2016, [place] Diabetes Association. Diabetes Care. 2016.39(Suppl 1). Performed By: #### 2 4362-6 ####[facility] LABCLIA [id number] [place] [id number] [place] Phosphate [Mass/Vol] 2.7 mg/dL Normal 2.7-4.8 [facility] Comment on above: Order Comment: Samiri men Type: BLOOD SPECIMENOrdering Facility: [facility] Address: [address] [place] [address] Performed By: #### 2 4362-6 ####[facility] LABCLIA [id number] [address] [address] [place] Potassium [Moles/Vol] 4.0 mmol/L Normal 3.7-5.1 [facility] Comment on above: Order Comment: Speci men Type: BLOOD SPECIMENOrdering Facility: [facility] Address: [address] [place] [address] Performed By: #### 2 4362-6 ####[facility] LABCLIA [id number] [place] [id number] [place] Sodium [Moles/Vol] 136 mmol/L Normal 136-144 [facility] Comment on above: Order Comment: Speci men Type: BLOOD SPECIMENOrdering Facility: [facility] Address: [address] [place] [address] Performed By: #### 2 4362-6 ####[facility] LABCLIA [id number] [place] [address] [place] Urea nitrogen [Mass/Vol] 12 mg/dL Normal 7-21 [facility] Comment on above: Order Comment: Speci men Type: BLOOD SPECIMENOrdering Facility: [facility] Address: [address] [place] [address] Performed By: #### 2 4362-6 ####[facility] LABIA [id number] [place] [address] [place] Right eye Photo documentatio non 07-12-2024 [facility] Radiology Study observation (narrative) Amarjit chaudhry [facility] THERAPY NTon 07-12-2024 THERAPY NT HNO ID: [id number] Author: RYANN GUZMÁN OT/[place] Service: Occupational Therapy Author Type: Occupational Therapist Type: Therapy (PT/OT/Speech/Resp) Filed: 07/12/2024 12:26 Note Text: OCCUPATIONAL THERAPY MISSED VISIT SERVICE DATE: 07/12/2024 SERVICE TIME: 1226 ROOM: [place] [address] ([facility] - OPHTHALMOLOGY) Patient not seen due to Test / Procedure. SIGNATURE: JUANY Willett PATIENT NAME: Mel Castillo DATE: July 12, 2024 TIME: 12:26 PM Normal [facility] CBC panel Auto (Bld)on 07-11 Erythrocyte distribution width (RBC) [Ratio] 17.6 % High 11.5-15.0 [facility] Comment on above: Order Comment: Speci men Type: BLOOD SPECIMEN [facility] Address: [address] [place] [address] Performed By: #### 5 8410-2 #### [facility] CLIA [id number] [address] [place] [address] [place] Hematocrit (Bld) [Volume fraction] 32.3 % Low 36.0-46.0 [facility] Comment on above: Order Comment: Speci men Type: BLOOD SPECIMEN [facility] Address: [address] [place] [address] Performed By: #### 5 8410-2 #### [facility] CLIA [id number] [address] [place] [address] [place] Hemoglobin (Bld) [Mass/Vol] 10.5 g/dL Low 11.5-15.5 [facility] Comment on above: Order Comment: Speci men Type: BLOOD SPECIMEN [facility] Address: [address] [place] [address] Performed By: #### 5 8410-2 #### [facility] CLIA [id number] [address] [place] [address] [place] MCH (RBC) [Entitic mass] 27.0 pg Normal 26.0-34.0 [facility] Comment on above: Order Comment: Speci men Type: BLOOD SPECIMEN [facility] Address: [address] [place] [address] Performed By: #### 5 8410-2 #### [facility] CLIA [id number] [address] [place] [address] [place] MCHC (RBC) [Mass/Vol] 32.5 g/dL Normal 30.5-36.0 [facility] Comment on above: Order Comment: Speci men Type: BLOOD SPECIMEN [facility] Address: [address] [place] [address] Performed By: #### 5 8410-2 #### [facility] CLIA [id number] [address] [place] [address] [place] MCV (RBC) [Entitic vol] 83.0 fL Normal 80.0-100.0 [facility] Comment on above: Order Comment: Speci men Type: BLOOD SPECIMEN [facility] Address: [address] [place] [address] Performed By: #### 5 8410-2 #### [facility] CLIA [id number] [address] [place] [address] [place] Nucleated RBC (Bld) [#/Vol] 10*3/uL Normal <0.01 [facility] Comment on above: Order Comment: Speci men Type: BLOOD SPECIMEN [facility] Address: [address] [place] [address] Performed By: #### 5 8410-2 #### [facility] CLIA [id number] [address] [place] [address] [place] Platelet mean volume (Bld) [Entitic vol] 9.9 fL Normal 9.0-12.7 [facility] Comment on above: Order Comment: Speci men Type: BLOOD SPECIMEN [facility] Address: [address] [place] [address] Performed By: #### 5 8410-2 #### [facility] CLIA [id number] [address] [place] [address] [place] Platelets (Bld) [#/Vol] 289 10*3/uL Normal 150-400 [facility] Comment on above: Order Comment: Speci men Type: BLOOD SPECIMEN [facility] Address: [address] [place] [address] Performed By: #### 5 8410-2 #### [facility] CLIA [id number] [address] [place] [address] [place] RBC (Bld) [#/Vol] 3.89 10*6/uL Low 3.90-5.20 [facility] Comment on above: Order Comment: Speci men Type: BLOOD SPECIMEN [facility] Address: [address] [place] [address] Performed By: #### 5 8410-2 #### [facility] CLIA [id number] [address] [place] [address] [place] WBC (Bld) [#/Vol] 8.32 10*3/uL Normal 3.70-11.00 [facility] Comment on above: Order Comment: Speci men Type: BLOOD SPECIMEN [facility] Address: [address] [place] [address] Performed By: #### 5 8410-2 #### [facility] CLIA [id number] [address] [place] [address] [place] Renal function 2000 panelon 07-11-2024 Albumin [Mass/Vol] 3.4 g/dL Low 3.9-4.9 [facility] Comment on above: Order Comment: Speci men Type: BLOOD SPECIMENOrdering Facility: [facility] Address: [address] [place] [address] Performed By: #### 2 4362-6 ####[facility] LABCLIA [id number] [place] [address] [place] Anion gap [Moles/Vol] 11 mmol/L Normal 8-15 [facility] Comment on above: Order Comment: Speci men Type: BLOOD SPECIMENOrdering Facility: [facility] Address: [address] [place] [address] Performed By: #### 2 4362-6 ####[facility] LABCLIA [id number] [place] [address] [place] Calcium [Mass/Vol] 8.9 mg/dL Normal 8.5-10.2 [facility] Comment on above: Order Comment: Speci men Type: BLOOD SPECIMENOrdering Facility: [facility] Address: [address] [place] [address] Performed By: #### 2 4362-6 ####[facility] LABCLIA [id number] [place] [address] [place] Chloride [Moles/Vol] 103 mmol/L Normal 98-107 [facility] Comment on above: Order Comment: Speci men Type: BLOOD SPECIMENOrdering Facility: [facility] Address: [address] [place] [address] Performed By: #### 2 4362-6 ####[facility] LABCLIA [id number] [place] [address] [place] CO2 [Moles/Vol] 23 mmol/L Normal 22-30 [facility] Comment on above: Order Comment: Speci men Type: BLOOD SPECIMENOrdering Facility: [facility] Address: [address] [place] [address] Performed By: #### 2 4362-6 ####[facility] LABCLIA [id number] [place] [address] [place] Creatinine [Mass/Vol] 0.91 mg/dL Normal 0.58-0.96 [facility] Comment on above: Order Comment: Speci men Type: BLOOD SPECIMENOrdering Facility: [facility] Address: [address] [place] [address] Performed By: #### 2 4362-6 ####[facility] LABCLIA [id number] [place] [address] [place] Creatinine and Glomerular filtration rate.predicted panel (S/P/Bld) 62 mL/min/1.73m??? Normal >=60 [facility] Comment on above: Order Comment: Speci men Type: BLOOD SPECIMENOrdering Facility: [facility] Address: [address] [place] [address] Result Comment: Isa mated Glomerular Filtration Rate [...] actual GFR. Performed By: #### 2 4362-6 ####[facility] LABIA [id number] [place] [address] [place] Glucose [Mass/Vol] 98 mg/dL Normal 74-99 [facility] Comment on above: Order Comment: Rhina mason Type: BLOOD SPECIMENOrdering Facility: [facility] Address: [address] [place] [address] Result Comment: The [place] Diabetes Association (ADA) provides guidance for cutoff [...] Standards of Medical Care in Diabetes 2016, [place] Diabetes Association. Diabetes Care. 2016.39(Suppl 1). Performed By: #### 2 4362-6 ####[facility] LABIA [id number] [place] [id number] [place] Phosphate [Mass/Vol] 2.8 mg/dL Normal 2.7-4.8 [facility] Comment on above: Order Comment: Rhina mason Type: BLOOD SPECIMENOrdering Facility: [facility] Address: [address] [place] [address] Performed By: #### 2 4362-6 ####[facility] LABIA [id number] [place] [id number] [place] Potassium [Moles/Vol] 3.6 mmol/L Low 3.7-5.1 [facility] Comment on above: Order Comment: Speci men Type: BLOOD SPECIMENOrdering Facility: [facility] Address: [address] [place] [address] Performed By: #### 2 4362-6 ####[facility] LABCLIA [id number] [place] [address] [place] Sodium [Moles/Vol] 137 mmol/L Normal 136-144 [facility] Comment on above: Order Comment: Speci men Type: BLOOD SPECIMENOrdering Facility: [facility] Address: [address] [place] [address] Performed By: #### 2 4362-6 ####[facility] LABCLIA [id number] [place] [address] [place] Urea nitrogen [Mass/Vol] 15 mg/dL Normal 7-21 [facility] Comment on above: Order Comment: Speci men Type: BLOOD SPECIMENOrdering Facility: [facility] Address: [address] [place] [address] Performed By: #### 2 4362-6 ####[facility] LABCLIA [id number] [place] [address] [place] CASE MANAGEMon 07-10-2024 CASE MANAGEM HNO ID: [id number] Author: TREY HUGHES LSW Service: Social Work Author Type: Chief Dispatcher Service Type: Care Mgt Progress Note Filed: 07/10/2024 14:42 Note Text: CARE MANAGEMENT PROGRESS NOTE SERVICE DATE: 07/10/2024 SERVICE TIME: 2:38 PM LOS: 3 days Post-Acute Discharge Planning Patient Goal(s): Increase strength [place] of Choice Explained: [place] of Choice Given: Yes Post-Acute Discharge Plan: [...] July 10, 2024 TIME: 2:38 PM Normal [facility] CBC panel Auto (Bld)on 07-10 Erythrocyte distribution width (RBC) [Ratio] 17.5 % High 11.5-15.0 [facility] Comment on above: Order Comment: Speci men Type: BLOOD SPECIMEN Ordering Facility: [facility] Address: [address] [place] [address] Performed By: #### 2 276-4 #### [facility] CLIA [id number] [address] [place] [address] [place] Hematocrit (Bld) [Volume fraction] 31.7 % Low 36.0-46.0 [facility] Comment on above: Order Comment: Speci men Type: BLOOD SPECIMEN Ordering Facility: [facility] Address: [address] [place] [address] Performed By: #### 2 276-4 #### [facility] CLIA [id number] [address] [place] [address] [place] Hemoglobin (Bld) [Mass/Vol] 9.9 g/dL Low 11.5-15.5 [facility] Comment on above: Order Comment: Speci men Type: BLOOD SPECIMEN Ordering Facility: [facility] Address: [address] [place] [address] Performed By: #### 2 276-4 #### [facility] CLIA [id number] [address] [place] [address] [place] MCH (RBC) [Entitic mass] 26.0 pg Normal 26.0-34.0 [facility] Comment on above: Order Comment: Speci men Type: BLOOD SPECIMEN Ordering Facility: [facility] Address: [address] [place] [address] Performed By: #### 2 276-4 #### [facility] CLIA [id number] [address] [place] [address] [place] MCHC (RBC) [Mass/Vol] 31.2 g/dL Normal 30.5-36.0 [facility] Comment on above: Order Comment: Speci men Type: BLOOD SPECIMEN Ordering Facility: [facility] Address: [address] [place] [address] Performed By: #### 2 276-4 #### [facility] CLIA [id number] [address] [place] [address] [place] MCV (RBC) [Entitic vol] 83.2 fL Normal 80.0-100.0 [facility] Comment on above: Order Comment: Speci men Type: BLOOD SPECIMEN Ordering Facility: [facility] Address: [address] [place] [address] Performed By: #### 2 276-4 #### [facility] CLIA [id number] [address] [place] [address] [place] Nucleated RBC (Bld) [#/Vol] 10*3/uL Normal <0.01 [facility] Comment on above: Order Comment: Speci men Type: BLOOD SPECIMEN Ordering Facility: [facility] Address: [address] [place] [address] Performed By: #### 2 276-4 #### [facility] CLIA [id number] [address] [place] [address] [place] Platelet mean volume (Bld) [Entitic vol] 10.3 fL Normal 9.0-12.7 [facility] Comment on above: Order Comment: Speci men Type: BLOOD SPECIMEN Ordering Facility: [facility] Address: [address] [place] [address] Performed By: #### 2 276-4 #### [facility] CLIA [id number] [address] [place] [address] [place] Platelets (Bld) [#/Vol] 336 10*3/uL Normal 150-400 [facility] Comment on above: Order Comment: Speci men Type: BLOOD SPECIMEN Ordering Facility: [facility] Address: [address] [place] [address] Performed By: #### 2 276-4 #### [facility] CLIA [id number] [address] [place] [address] [place] RBC (Bld) [#/Vol] 3.81 10*6/uL Low 3.90-5.20 [facility] Comment on above: Order Comment: Speci men Type: BLOOD SPECIMEN Ordering Facility: [facility] Address: [address] [place] [address] Performed By: #### 2 276-4 #### [facility] CLIA [id number] [address] [place] [address] [place] WBC (Bld) [#/Vol] 6.35 10*3/uL Normal 3.70-11.00 [facility] Comment on above: Order Comment: Speci men Type: BLOOD SPECIMEN Ordering Facility: [facility] Address: [address] [place] [address] Performed By: #### 2 276-4 #### [facility] CLIA [id number] [address] [place] [address] [place] Renal function 2000 panelon 07-10-2024 Albumin [Mass/Vol] 3.5 g/dL Low 3.9-4.9 [facility] Comment on above: Order Comment: Speci men Type: BLOOD SPECIMEN [facility] Address: [address] [place] [address] Performed By: #### 2 4362-6 #### [facility] CLIA [id number] [address] [address] [place] Anion gap [Moles/Vol] 12 mmol/L Normal 8-15 [facility] Comment on above: Order Comment: Speci men Type: BLOOD SPECIMEN [facility] Address: [address] [place] [address] Performed By: #### 2 4362-6 #### [facility] CLIA [id number] [address] [place] [address] [place] Calcium [Mass/Vol] 9.0 mg/dL Normal 8.5-10.2 [facility] Comment on above: Order Comment: Speci men Type: BLOOD SPECIMEN [facility] Address: [address] [place] [address] Performed By: #### 2 4362-6 #### [facility] CLIA [id number] [address] [place] [address] [place] Chloride [Moles/Vol] 104 mmol/L Normal 98-107 [facility] Comment on above: Order Comment: Speci men Type: BLOOD SPECIMEN [facility] Address: [address] [place] [address] Performed By: #### 2 4362-6 #### [facility] CLIA [id number] [address] [place] [address] [place] CO2 [Moles/Vol] 22 mmol/L Normal 22-30 [facility] Comment on above: Order Comment: Speci men Type: BLOOD SPECIMEN [facility] Address: [address] [place] [address] Performed By: #### 2 4362-6 #### [facility] CLIA [id number] [address] [place] [address] [place] Creatinine [Mass/Vol] 0.93 mg/dL Normal 0.58-0.96 [facility] Comment on above: Order Comment: Speci men Type: BLOOD SPECIMEN [facility] Address: [address] [place] [address] Performed By: #### 2 4362-6 #### [facility] CLIA [id number] [address] [place] [address] [place] Creatinine and Glomerular filtration rate.predicted panel (S/P/Bld) 61 mL/min/1.73m??? Normal >=60 [facility] Comment on above: Order Comment: Speci men Type: BLOOD SPECIMEN [facility] Address: [address] [place] [address] Result Comment: Isa mated Glomerular Filtration Rate [...] GFR. Performed By: #### 2 4362-6 #### [facility] CLIA [id number] [address] [place] [address] [place] Glucose [Mass/Vol] 102 mg/dL High 74-99 [facility] Comment on above: Order Comment: Rhina mason Type: BLOOD SPECIMEN [facility] Address: [address] [place] [address] Result Comment: The [place] Diabetes Association (ADA) provides guidance for cutoff [...] Standards of Medical Care in Diabetes 2016, [place] Diabetes Association. Diabetes Care. 2016.39(Suppl 1). Performed By: #### 2 4362-6 #### [facility] CLIA [id number] [address] [place] [address] [place] Phosphate [Mass/Vol] 2.6 mg/dL Low 2.7-4.8 [facility] Comment on above: Order Comment: Rhina mason Type: BLOOD SPECIMEN [facility] Address: [address] [place] [address] Performed By: #### 2 4362-6 #### [facility] CLIA [id number] [address] [place] [address] [place] Potassium [Moles/Vol] 3.9 mmol/L Normal 3.7-5.1 [facility] Comment on above: Order Comment: Speci men Type: BLOOD SPECIMEN [facility] Address: [address] [place] [address] Performed By: #### 2 4362-6 #### [facility] CLIA [id number] [address] [place] [address] [place] Sodium [Moles/Vol] 138 mmol/L Normal 136-144 [facility] Comment on above: Order Comment: Speci men Type: BLOOD SPECIMEN [facility] Address: [address] [place] [address] Performed By: #### 2 4362-6 #### [facility] CLIA [id number] [address] [place] [address] [place] Urea nitrogen [Mass/Vol] 21 mg/dL Normal 7-21 [facility] Comment on above: Order Comment: Speci men Type: BLOOD SPECIMEN [facility] Address: [address] [place] [address] Performed By: #### 2 4362-6 #### [facility] CLIA [id number] [address] [place] [address] [place] THERAPY NTon 07-10-2024 THERAPY NT HNO ID: [id number] Author: SANTIAGO GUZMAN, OT/L Service: Occupational Therapy Author Type: Occupational Therapist Type: Therapy (PT/OT/Speech/Resp) Filed: 07/10/2024 10:00 Note Text: Occupational Therapy Evaluation Summary SERVICE DATE: 07/10/2024 SERVICE TIME: 0840 to 0920 ROOM: [place] [address] OT 6 Clicks Score: 15 DISCHARGE RECOMMENDATIONS [...] "shadows" and occasionally the color while / online producer colors. SNF rec at this time pending [...] Muscle Weakness (generalized) TREATMENT INTERVENTIONS Evaluation, Self Half-Way Management (19953) Timed Code Treatment (minutes): 25 Skilled Treatment [...] Sit to Stand, Standing Balance to Improve [place] with ADLs/Self-Care, Sitting Balance to Improve [place] with ADLs/Self-Care, Life Roles/Routines/Habits THERAPEUTIC SKILLS USED Therapeutic Use of Self, Physical Assist, Movement Facilitation, Management of Critical Lines, Tubes and/or Drains FUNCTIONAL STATUS Activities of Daily Living Assist Level Additional Information Feeding Minimal Assistance Grooming Moderate Assistance Bathing Upper Body Minimal Assistance Bathing Lower Body Ma (more content not included)... Normal [facility] CBC panel Auto (Bld)on 07-09 Erythrocyte distribution width (RBC) [Ratio] 17.7 % High 11.5-15.0 [facility] Comment on above: Order Comment: Speci men Type: BLOOD SPECIMEN [facility] Address: [address] [place], [place] [address] Performed By: #### 2 4362-6 #### [facility] CLIA [id number] [address] [place] [address] [place] Hematocrit (Bld) [Volume fraction] 33.9 % Low 36.0-46.0 [facility] Comment on above: Order Comment: Speci men Type: BLOOD SPECIMEN [facility] Address: [address] [place] [address] Performed By: #### 2 4362-6 #### [facility] CLIA [id number] [address] [place] [address] [place] Hemoglobin (Bld) [Mass/Vol] 10.5 g/dL Low 11.5-15.5 [facility] Comment on above: Order Comment: Speci men Type: BLOOD SPECIMEN [facility] Address: [address] [place] [address] Performed By: #### 2 4362-6 #### [facility] CLIA [id number] [address] [place] [address] [place] MCH (RBC) [Entitic mass] 26.6 pg Normal 26.0-34.0 [facility] [facility] Comment on above: Order Comment: Speci men Type: BLOOD SPECIMEN Ordering Facility: [facility] Address: [address] [place] [address] Performed By: #### 2 4362-6 #### [facility] CLIA [id number] [address] [place] [address] [place] MCHC (RBC) [Mass/Vol] 31.0 g/dL Normal 30.5-36.0 [facility] Comment on above: Order Comment: Speci men Type: BLOOD SPECIMEN Ordering Facility: [facility] Address: [address] [place] [address] Performed By: #### 2 4362-6 #### [facility] CLIA [id number] [address] [place] [address] [place] MCV (RBC) [Entitic vol] 86.0 fL Normal 80.0-100.0 [facility] Comment on above: Order Comment: Speci men Type: BLOOD SPECIMEN Ordering Facility: [facility] Address: [address] [place] [address] Performed By: #### 2 4362-6 #### [facility] CLIA [id number] [address] [place] [address] [place] Nucleated RBC (Bld) [#/Vol] 10*3/uL Normal <0.01 [facility] Comment on above: Order Comment: Speci men Type: BLOOD SPECIMEN Ordering Facility: [facility] Address: [address] [place] [address] Performed By: #### 2 4362-6 #### [facility] CLIA [id number] [address] [place] [address] [place] Platelet mean volume (Bld) [Entitic vol] 10.4 fL Normal 9.0-12.7 [facility] Comment on above: Order Comment: Speci men Type: BLOOD SPECIMEN Ordering Facility: [facility] Address: [address] [place] [address] Performed By: #### 2 4362-6 #### [facility] CLIA [id number] [address] [place] [address] [place] Platelets (Bld) [#/Vol] 346 10*3/uL Normal 150-400 [facility] Comment on above: Order Comment: Speci men Type: BLOOD SPECIMEN Ordering Facility: [facility] Address: [address] [place] [address] Performed By: #### 2 4362-6 #### [facility] CLIA [id number] [address] [place] [address] [place] RBC (Bld) [#/Vol] 3.94 10*6/uL Normal 3.90-5.20 [facility] Comment on above: Order Comment: Speci men Type: BLOOD SPECIMEN Ordering Facility: [facility] Address: [address] [place] [address] Performed By: #### 2 4362-6 #### [facility] CLIA [id number] [address] [place] [address] [place] WBC (Bld) [#/Vol] 8.22 10*3/uL Normal 3.70-11.00 [facility] Comment on above: Order Comment: Speci men Type: BLOOD SPECIMEN Ordering Facility: [facility] Address: [address] [place] [address] Performed By: #### 2 4362-6 #### [facility] CLIA [id number] [address] [place] [address] [place] Renal function 2000 panelon 07-09-2024 Albumin [Mass/Vol] 3.6 g/dL Low 3.9-4.9 [facility] Comment on above: Order Comment: Speci men Type: BLOOD SPECIMEN Ordering Facility: [facility] Address: [address] [place] [address] Performed By: #### 2 4362-6 #### [facility] CLIA [id number] [address] [place] [address] [place] Anion gap [Moles/Vol] 11 mmol/L Normal 8-15 [facility] Comment on above: Order Comment: Speci men Type: BLOOD SPECIMEN Ordering Facility: [facility] Address: [address] [place] [address] Performed By: #### 2 4362-6 #### [facility] CLIA [id number] [address] [place] [address] [place] Calcium [Mass/Vol] 8.8 mg/dL Normal 8.5-10.2 [facility] Comment on above: Order Comment: Speci men Type: BLOOD SPECIMEN Ordering Facility: [facility] Address: [address] [place] [address] Performed By: #### 2 4362-6 #### [facility] CLIA [id number] [address] [place] [address] [place] Chloride [Moles/Vol] 103 mmol/L Normal 98-107 [facility] Comment on above: Order Comment: Speci men Type: BLOOD SPECIMEN Ordering Facility: [facility] Address: [address] [place] [address] Performed By: #### 2 4362-6 #### [facility] CLIA [id number] [address] [place] [address] [place] CO2 [Moles/Vol] 22 mmol/L Normal 22-30 [facility] Comment on above: Order Comment: Speci men Type: BLOOD SPECIMEN Ordering Facility: [facility] Address: [address] [place] [address] Performed By: #### 2 4362-6 #### [facility] CLIA [id number] [address] [place] [address] [place] Creatinine [Mass/Vol] 0.94 mg/dL Normal 0.58-0.96 [facility] Comment on above: Order Comment: Speci men Type: BLOOD SPECIMEN Ordering Facility: [facility] Address: [address] [place] [address] Performed By: #### 2 4362-6 #### [facility] CLIA [id number] [address] [place] [address] [place] Creatinine and Glomerular filtration rate.predicted panel (S/P/Bld) 60 mL/min/1.73m??? Normal >=60 [facility] Comment on above: Order Comment: Speci men Type: BLOOD SPECIMEN Ordering Facility: [facility] Address: [address] [place] [address] Result Comment: Isa mated Glomerular Filtration Rate [...] GFR. Performed By: #### 2 4362-6 #### [facility] CLIA [id number] [address] [place] [address] [place] Glucose [Mass/Vol] 158 mg/dL High 74-99 [facility] Comment on above: Order Comment: Speci men Type: BLOOD SPECIMEN Ordering Facility: [facility] Address: [address] [place] [address] Result Comment: The [place] Diabetes Association (ADA) provides guidance for cutoff [...] Standards of Medical Care in Diabetes 2016, [place] Diabetes Association. Diabetes Care. 2016.39(Suppl 1). Performed By: #### 2 4362-6 #### [facility] CLIA [id number] [address] [place] [address] [place] Phosphate [Mass/Vol] 2.0 mg/dL Low 2.7-4.8 [facility] Comment on above: Order Comment: Speci men Type: BLOOD SPECIMEN Ordering Facility: [facility] Address: [address] [place] [address] Performed By: #### 2 4362-6 #### [facility] CLIA [id number] [address] [place] [address] [place] Potassium [Moles/Vol] 4.1 mmol/L Normal 3.7-5.1 [facility] Comment on above: Order Comment: Rhina mason Type: BLOOD SPECIMEN Ordering Facility: [facility] Address: [address] [place] [address] Performed By: #### 2 4362-6 #### [facility] CLIA [id number] [address] [place] [address] [place] Sodium [Moles/Vol] 136 mmol/L Normal 136-144 [facility] Comment on above: Order Comment: Rhina mason Type: BLOOD SPECIMEN Ordering Facility: [facility] Address: [address] [place] [address] Performed By: #### 2 4362-6 #### [facility] CLIA [id number] [address] [place] [address] [place] Urea nitrogen [Mass/Vol] 18 mg/dL Normal 7-21 [facility] Comment on above: Order Comment: Rhina mason Type: BLOOD SPECIMEN Ordering Facility: [facility] Address: [address] [place] [address] Performed By: #### 2 4362-6 #### [facility] CLIA [id number] [address] [place] [address] [place] CONSULTon 07-08-2024 CONSULT HNO ID: [id number] Author: JARED GILMORE MD Service: Ophthalmology Author [...] Mon-Tue, 7 am - 5 pm, page [phone] Mon-Tue, 5 pm - 7 am, page [phone] Weekends (Fri 5 pm to Mon 7 am), page [phone] EXAM: Base Eye Exam Visual Acuity Right Left Dist sc CF at 3' Tonometry (Applanation, 8:30 AM) Right Left Pressure 14 Pupils Dark Light Shape React Right 6 (more content not included)... Normal [facility] [id number] 07-07-2024 [id number] Normal [facility] BASIC METABOLIC PANELon 06-18 Anion gap [Moles/Vol] 4 mmol/L Normal 3-13 [facility] Comment on above: Performed By: #### L AB15 ####Gas Shovel Operator: VELMA VALADEZ ([phone])[facility] ([facility])[address] [place] [address] Calcium [Mass/Vol] 8.7 mg/dL Low 8.8-10.0 [facility] Comment on above: Performed By: #### L AB15 ####Gas Shovel Operator: VELMA VALADEZ ([phone])[facility] ([facility])[address] [place] [address] Chloride [Moles/Vol] 111 mmol/L High 98-107 [facility] Comment on above: Performed By: #### L AB15 ####Gas Shovel Operator: VELMA VALADEZ ([phone])[facility] ([facility])[address] [place] [address] CO2 [Moles/Vol] 23 mmol/L Normal 23-31 [facility] Comment on above: Performed By: #### L AB15 ####Gas Shovel Operator: VELMA VALADEZ ([phone])[facility] ([facility])[address] [place] [address] Creatinine [Mass/Vol] 0.84 mg/dL Normal 0.57-1.11 [facility] Comment on above: Performed By: #### L AB15 ####Gas Shovel Operator: VELMA VALADEZ ([phone])[facility])[address] [place] [address] GLOMERULAR FILTRATION RATE ML/MIN/1.73 SQ M.PREDICTED 68.6 mL/min/1.73m*2 Normal >60.0 [facility] Comment on above: Result Comment: Calc ulation based on the Chronic Kidney Disease Epidemiology Collaboration (CKD-EPI) equation refit without adjustment for race Performed By: #### L AB15 ####Gas Shovel Operator: VELMA VALADEZ ([phone])[facility])[address] [place] [address] Glucose [Mass/Vol] 102 mg/dL Normal 82-115 [facility] Comment on above: Performed By: #### L AB15 ####[employer] Shovel Operator: VELMA VALADEZ ([phone])[facility])[address] [place] [address] Potassium [Moles/Vol] 4.0 mmol/L Normal 3.5-5.1 [facility] Comment on above: Result Comment: [facility] potassium values may be up to 0.5 mmol/L lower than serum values. Performed By: #### L AB15 ####Gas Shovel Operator: VELMA VALADEZ ([phone])[address] Sodium [Moles/Vol] 138 mmol/L Normal 136-145 [facility] Comment on above: Performed By: #### L AB15 ####[employer] Shovel Operator: VELMA VALADEZ ([phone])[address] Urea nitrogen [Mass/Vol] 19 mg/dL Normal 9-23 [facility] Comment on above: Performed By: #### L AB15 ####[employer] Operator: VELMA [phone])[address] Basic metabolic 1998 panelon 07-07-2024 Anion gap [Moles/Vol] 4 mmol/L 3 - 13 mmol/L [facility] Calcium [Mass/Vol] 8.7 mg/dL Low 8.8 - 10. 0 mg/dL [facility] Chloride [Moles/Vol] 111 mmol/L High 98 - 10 7 mmol/L [facility] CO2 [Moles/Vol] 23 mmol/L 23 - 31 mmol/L [facility] Creatinine [Mass/Vol] 0.84 mg/dL 0.57 - 1.11 mg/dL [facility] GFR/1.73 sq M.predicted (S/P/Bld) [Vol rate/Area] 68.6 mL/min - PINF [facility] Comment on above: Calculation based on the Chronic Kidney Disease Epidemiology Collaboration (CKD-EPI) equation refit without adjustment for race Glucose [Mass/Vol] 102 mg/dL 82 - 115 mg/dL [facility] Interpretation and review of laboratory results Abnormal [facility] Potassium [Moles/Vol] 4 mmol/L 3.5 - 5.1 mmol/L [facility] Comment on above: Plasma potassium chris ues may be up to 0.5 mmol/L lower than serum values. Sodium [Moles/Vol] 138 mmol/L 136 - 145 mmol/L [facility] [place] Urea nitrogen [Mass/Vol] 19 mg/dL 9 - 23 mg/dL [facility] [place] CBC W Auto Differential pane l (Bld)Ordered By: Devika Eisenberg on 07-07-2024 Basophils (Bld) [#/Vol] 0 10*3/uL 0.0 - 0.2 10*3/uL [facility] [place] Basophils/100 WBC (Bld) 0.4 % 0.0 - 2.0 % [facility] Eosinophils (Bld) [#/Vol] 0.1 10*3/uL 0.0 - 0.5 10*3/uL [facility] [place] Eosinophils/100 WBC (Bld) 1.3 % 0.0 - 6.0 % [facility] Erythrocyte distribution width (RBC) [Ratio] 17.6 % High 11.5 - 15.0 % [facility] [place] Hematocrit (Bld) [Volume fraction] 29.9 % Low 35.0 - 47.0 % [facility] [place] Hemoglobin (Bld) [Mass/Vol] 9.1 g/dL Low 11.7 - 16.0 g/dL [facility] [place] Immature granulocytes (Bld) [#/Vol] 0 10*3/uL NINF - 0.1 10*3/uL [facility] [place] Immature granulocytes/100 WBC (Bld) 0.2 % 0.0 - 2.0 % [facility] Interpretation and review of laboratory results Abnormal [facility] [place] Lymphocytes (Bld) [#/Vol] 1.2 10*3/uL 1.0 - 4.3 10*3/uL [facility] [place] Lymphocytes/100 WBC (Bld) 22 % 15.0 - 45.0 % [facility] MCH (RBC) [Entitic mass] 25.9 pg Low 26.0 - 34.0 pg [facility] MCHC (RBC) [Mass/Vol] 30.4 % Low 30.5 - 36.0 % [facility] MCV (RBC) [Entitic vol] 84.9 fL 77.0 - 99.0 fL [facility] Monocytes (Bld) [#/Vol] 0.6 10*3/uL 0.0 - 0.9 10*3/uL [facility] Monocytes/100 WBC (Bld) 10 % 5.0 - 13.0 % [facility] Neutrophils (Bld) [#/Vol] 3.7 10*3/uL 1.8 - 7.5 10*3/uL [facility] Neutrophils/100 WBC (Bld) 66.1 % 38.0 - 82.0 % [facility] Nucleated RBC/100 WBC (Bld) [Ratio] 0 % [facility] Platelet mean volume (Bld) [Entitic vol] 9.8 fL 9.0 - 12.7 fL [facility] Platelets (Bld) [#/Vol] 301 10*3/uL 140 - 440 10*3/uL [facility] RBC (Bld) [#/Vol] 3.52 10*6/uL Low 3.80 - 5.2 0 10*6/uL [facility] WBC (Bld) [#/Vol] 5.6 10*3/uL 3.6 - 10.7 10*3/uL [facility] CBC WITH AUTO DIFFERENTIALon 07-07-2024 Basophils (Bld) [#/Vol] 0.0 10*3/uL Normal 0.0-0.2 [facility] Comment on above: Performed By: #### L [id number] ####Gas Shovel Operator: VELMA VALADEZ ([phone])[facility] ([address] Basophils/100 WBC (Bld) 0.4 % Normal 0.0-2.0 [facility] Comment on above: Performed By: #### L [id number] ####Gas Shovel Operator: VELMA VALADEZ ([phone])[facility] [address] Eosinophils (Bld) [#/Vol] 0.1 10*3/uL Normal 0.0-0.5 [facility] Comment on above: Performed By: #### L [id number] ####Gas Shovel Operator: VELMA VALADEZ ([phone])[facility])[address] [place] [address] Eosinophils/100 WBC (Bld) 1.3 % Normal 0.0-6.0 [facility] Comment on above: Performed By: #### L [id number] ####Gas Shovel Operator: VELMA VALADEZ ([phone])[address] Erythrocyte distribution width (RBC) [Ratio] 17.6 % High 11.5-15.0 [facility] Comment on above: Performed By: #### L [id number] ####[employer] Shovel Operator: VELMA VALADEZ ([phone])[address] Hematocrit (Bld) [Volume fraction] 29.9 % Low 35.0-47.0 [facility] Comment on above: Performed By: #### L [id number] ####[employer] Sho[employer] Operator: VELMA VALADEZ ([phone])[address] Hemoglobin (Bld) [Mass/Vol] 9.1 g/dL Low 11.7-16.0 [facility] Comment on above: Performed By: #### L [id number] ####[employer] Shovel Operator: VELMA VALADEZ ([phone])[facility])[address] [place] [address] IMMATURE GRANS % 0.2 % Normal 0.0-2.0 [facility] Comment on above: Performed By: #### L [id number] ####[employer] Shovel Operator: VELMA VALADEZ ([phone])[address] IMMATURE GRANS ABSOLUTE 0.0 10*3/uL Normal <0.1 [facility] Comment on above: Performed By: #### L [id number] ####Gas Shovel Operator: VELMA VALADEZ ([phone])[facility])[address] [place] [address] Lymphocytes (Bld) [#/Vol] 1.2 10*3/uL Normal 1.0-4.3 [facility] Comment on above: Performed By: #### L [id number] ####[employer] Shovel Operator: VELMA VALADEZ ([phone])[facility])[address] [place] [address] Lymphocytes/100 WBC (Bld) 22.0 % Normal 15.0-45.0 [facility] Comment on above: Performed By: #### L [id number] ####Gas Shovel Operator: VELMA VALADEZ ([phone])[facility])[address] [place] [address] MCH (RBC) [Entitic mass] 25.9 pg Low 26.0-34.0 [facility] Comment on above: Performed By: #### L [id number] ####Gas Shovel Operator: VELMA VALADEZ ([phone])[facility])[address] [place] [address] MCHC 30.4 % Low 30.5-36.0 [facility] Comment on above: Performed By: #### L [id number] ####Gas Shovel Operator: VELMA VALADEZ ([phone])[facility])[address] [place] [address] MCV (RBC) [Entitic vol] 84.9 fL Normal 77.0-99.0 [facility] Comment on above: Performed By: #### L [id number] ####Gas Shovel Operator: VELMA VALADEZ ([phone])[facility])[address] [place] [address] Monocytes (Bld) [#/Vol] 0.6 10*3/uL Normal 0.0-0.9 [facility] Comment on above: Performed By: #### L [id number] ####Gas Shovel Operator: VELMA VALADEZ ([phone])[facility] [place] [address] Monocytes/100 WBC (Bld) 10.0 % Normal 5.0-13.0 [facility] Comment on above: Performed By: #### L [id number] ####Gas Shovel Operator: VELMA VALADEZ ([phone])[facility] ([facility])[address] [place] [address] NEUTROPHILS ABSOLUTE 3.7 10*3/uL Normal 1.8-7.5 [facility] Comment on above: Performed By: #### L [id number] ####Gas Shovel Operator: VELMA VALADEZ ([phone])[facility] ([facility])[address] [place] [address] Neutrophils/100 WBC (Bld) 66.1 % Normal 38.0-82.0 [facility] Comment on above: Performed By: #### L [id number] ####Gas Shovel Operator: VELMA VALADEZ ([phone])[facility] [place] [address] NRBC 0.0 /100 WBCs Normal 0.0-2.0 [facility] Comment on above: Performed By: #### L [id number] ####Gas Shovel Operator: VELMA VALADEZ ([phone])[facility] ([facility])[address] [place] [address] Platelet mean volume (Bld) [Entitic vol] 9.8 fL Normal 9.0-12.7 [facility] Comment on above: Performed By: #### L [id number] ####Gas Shovel Operator: VELMA VALADEZ ([phone])[facility] ([facility])[address] [place] [address] [place] Platelets (Bld) [#/Vol] 301 10*3/uL Normal 140-440 [facility] Comment on above: Performed By: #### L [id number] ####Gas Shovel Operator: VELMA VALADEZ ([phone])[facility] ([facility])[address] [place] [address] RBC (Bld) [#/Vol] 3.52 10*6/uL Low 3.80-5.20 [facility] Comment on above: Performed By: #### L [id number] ####Gas Shovel Operator: VELMA VALADEZ ([phone])[facility] ([facility])[address] [place] [address] WBC (Bld) [#/Vol] 5.6 10*3/uL Normal 3.6-10.7 [facility] Comment on above: Performed By: #### L [id number] ####Gas Shovel Operator: VELMA AVLADEZ ([phone])[facility] ([facility])[address] [place] [address] CBC panel Auto (Bld)on 07-07 Erythrocyte distribution width (RBC) [Ratio] 17.5 % High 11.5-15.0 [facility] Comment on above: Order Comment: Speci men Type: BLOOD SPECIMEN Ordering Facility: [facility] Address: [address] [place] [address] Performed By: #### 2 4362-6 #### [facility] CLIA [id number] [address] [place] [address] [place] Hematocrit (Bld) [Volume fraction] 32.7 % Low 36.0-46.0 [facility] Comment on above: Order Comment: Speci men Type: BLOOD SPECIMEN Ordering Facility: [facility] Address: [address] [place] [address] Performed By: #### 2 4362-6 #### [facility] CLIA [id number] [address] [place] [address] [place] Hemoglobin (Bld) [Mass/Vol] 10.2 g/dL Low 11.5-15.5 [facility] Comment on above: Order Comment: Speci men Type: BLOOD SPECIMEN Ordering Facility: [facility] Address: [address] [place] [address] Performed By: #### 2 4362-6 #### [facility] CLIA [id number] [address] [place] [address] [place] MCH (RBC) [Entitic mass] 26.8 pg Normal 26.0-34.0 [facility] Comment on above: Order Comment: Speci men Type: BLOOD SPECIMEN Ordering Facility: [facility] Address: [address] [place] [address] Performed By: #### 2 4362-6 #### [facility] CLIA [id number] [address] [place] [address] [place] MCHC (RBC) [Mass/Vol] 31.2 g/dL Normal 30.5-36.0 [facility] Comment on above: Order Comment: Speci men Type: BLOOD SPECIMEN Ordering Facility: [facility] Address: [address] [place] [address] Performed By: #### 2 4362-6 #### [facility] CLIA [id number] [address] [place] [address] [place] MCV (RBC) [Entitic vol] 86.1 fL Normal 80.0-100.0 [facility] Comment on above: Order Comment: Speci men Type: BLOOD SPECIMEN Ordering Facility: [facility] Address: [address] [place] [address] Performed By: #### 2 4362-6 #### [facility] CLIA [id number] [address] [place] [address] [place] Nucleated RBC (Bld) [#/Vol] 10*3/uL Normal <0.01 [facility] Comment on above: Order Comment: Speci men Type: BLOOD SPECIMEN Ordering Facility: [facility] Address: [address] [place] [address] Performed By: #### 2 4362-6 #### [facility] CLIA [id number] [address] [place] [address] [place] Platelet mean volume (Bld) [Entitic vol] 9.8 fL Normal 9.0-12.7 [facility] Comment on above: Order Comment: Speci men Type: BLOOD SPECIMEN Ordering Facility: [facility] Address: [address] [place] [address] Performed By: #### 2 4362-6 #### [facility] CLIA [id number] [address] [place] [address] [place] Platelets (Bld) [#/Vol] 284 10*3/uL Normal 150-400 [facility] Comment on above: Order Comment: Speci men Type: BLOOD SPECIMEN Ordering Facility: [facility] Address: [address] [place] [address] Performed By: #### 2 4362-6 #### [facility] CLIA [id number] [address] [place] [address] [place] RBC (Bld) [#/Vol] 3.80 10*6/uL Low 3.90-5.20 [facility] Comment on above: Order Comment: Speci men Type: BLOOD SPECIMEN Ordering Facility: [facility] Address: [address] [place] [address] Performed By: #### 2 4362-6 #### [facility] CLIA [id number] [address] [place] [address] [place] WBC (Bld) [#/Vol] 5.72 10*3/uL Normal 3.70-11.00 [facility] Comment on above: Order Comment: Speci men Type: BLOOD SPECIMEN Ordering Facility: [facility] Address: [address] [place] [address] Performed By: #### 2 4362-6 #### [facility] CLIA [id number] [address] [place] [address] [place] ORBITS WO IVCONon 12-21-[address] ORBITS WO IVCON * * *Final Report* * * DATE OF EXAM: Jul 07 2024 8:21PM [facility] 0510 - CT ORBITS WO IVCON / [...] changes. Unchanged appearance of left globe/phthisis bulbi. 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: PSCB Transcribe Date/Time: Jul 07 2024 8:24P Dictated by : ULICES LEBLANC MD This examination was interpreted and the report reviewed and electronically signed by: DE JAIN MD on Jul 07 2024 9:18PM EST [id number] Normal [facility] HISTORY PHYSICALon HISTORY PHYSICAL HNO ID: [id number] Author: FELICIA LEVY MD Service: General Internal [...] 3pm to 7am): Please page on-call resident [phone] (Jonathan Chaudhry Subjective CHIEF COMPLAINT: Acute angle closure glaucoma HPI: Mel Castillo is a 83 year old female with a PMH of COPD, HTN, Afib (on Lovenox), CKD Stage 3, L retinal detachment, recurrent embolic events, and 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 She was subsequently taken by the furniture upholsterer apprentice for peripheral iridotomy's, which helped to reduce elevated intraocular pressure down to 10.2 mmHg in the R eye. Furthermore, was evaluated by stroke team at [place] who reviewed her images and believed her headache and severe vision loss was secondary to the acute closure glaucoma and not stroke. Ultimately, it was determined that due to vision now being reduced to only one eye she required retinal specialist at [place] for repair of acute retinal detachment on [...] of breath., Disp: , Rfl: , 07/06/2024 loslzukblpq-npctbaupp-y ilanter (TRELEGY ELLIPTA) 100-62.5-25 mcg inhalation powder, Inhale 1 (more content not included)... Normal [facility] NURSING PROGon 07-07-2024 NURSING PROG HNO ID: [id number] Author: SONNY CASTILLO RN Service: Nursing Author [...] notify nurse if she experiences pain. Normal [facility] NURSING PROG HNO ID: [id number] Author: WINIFRED HILLS RN Service: ? Author Type: Registered Nurse Type: Nursing Progress Note Filed: 07/07/2024 12:15 Note Text: Transfer Note: PATIENT NAME: Mel Castillo Patient Location: H060 [facility]/H060-31 Room: H060-31 Patient transferred into room/unit H60-31 in stable condition. Actions taken: Team notified. Patient belongings with patient. Pt oriented to the floor policy and fall prevention protocol. Call light within reach. Normal [facility] Nursing Noteon 07-07-2024 Nursing Note Report called to [facility]. Normal [facility] Progress Noteon 07-07-2024 Progress Note Nutrition rescreen completed. Chart reviewed. Patient to be monitored and followed by the diet factory maintenance technician. Normal [facility] Renal function 2000 panelon 07-07-2024 Albumin [Mass/Vol] 3.7 g/dL Low 3.9-4.9 [facility] Comment on above: Order Comment: Speci men Type: BLOOD SPECIMEN Ordering Facility: [facility] Address: [address] [place] [address] Performed By: #### 2 4362-6 #### [facility] CLIA [id number] [address] [place] [address] [place] Anion gap [Moles/Vol] 12 mmol/L Normal 8-15 [facility] Comment on above: Order Comment: Speci men Type: BLOOD SPECIMEN Ordering Facility: [facility] Address: [address] [place] [address] Performed By: #### 2 4362-6 #### [facility] CLIA [id number] [address] [place] [address] [place] Calcium [Mass/Vol] 9.2 mg/dL Normal 8.5-10.2 [facility] Comment on above: Order Comment: Speci men Type: BLOOD SPECIMEN Ordering Facility: [facility] Address: [address] [place] [address] Performed By: #### 2 4362-6 #### [facility] CLIA [id number] [address] [place] [address] [place] Chloride [Moles/Vol] 107 mmol/L Normal 98-107 [facility] Comment on above: Order Comment: Speci men Type: BLOOD SPECIMEN Ordering Facility: [facility] Address: [address] [place] [address] Performed By: #### 2 4362-6 #### [facility] CLIA [id number] [address] [place] [address] [place] CO2 [Moles/Vol] 20 mmol/L Low 22-30 [facility] Comment on above: Order Comment: Speci men Type: BLOOD SPECIMEN Ordering Facility: [facility] Address: [address] [place] [address] Performed By: #### 2 4362-6 #### [facility] CLIA [id number] [address] [place] [address] [place] Creatinine [Mass/Vol] 0.82 mg/dL Normal 0.58-0.96 [facility] Comment on above: Order Comment: Speci men Type: BLOOD SPECIMEN Ordering Facility: [facility] Address: [address] [place] [address] Performed By: #### 2 4362-6 #### [facility] CLIA [id number] [address] [place] [address] [place] Creatinine and Glomerular filtration rate.predicted panel (S/P/Bld) 71 mL/min/1.73m??? Normal >=60 [facility] Comment on above: Order Comment: Speci men Type: BLOOD SPECIMEN Ordering Facility: [facility] Address: [address] [place] [address] Result Comment: Isa mated Glomerular Filtration Rate [...] GFR. Performed By: #### 2 4362-6 #### [facility] CLIA [id number] [address] [place] [address] [place] Glucose [Mass/Vol] 106 mg/dL High 74-99 [facility] Comment on above: Order Comment: Rhina mason Type: BLOOD SPECIMEN Ordering Facility: [facility] Address: [address] [place] [address] Result Comment: The [place] Diabetes Association (ADA) provides guidance for cutoff [...] Standards of Medical Care in Diabetes 2016, [place] Diabetes Association. Diabetes Care. 2016.39(Suppl 1). Performed By: #### 2 4362-6 #### [facility] CLIA [id number] [address] [place] [address] [place] Phosphate [Mass/Vol] 3.0 mg/dL Normal 2.7-4.8 [facility] Comment on above: Order Comment: Rhina mason Type: BLOOD SPECIMEN Ordering Facility: [facility] Address: [address] [place] [address] Performed By: #### 2 4362-6 #### [facility] CLIA [id number] [address] [place] [address] [place] Potassium [Moles/Vol] 4.3 mmol/L Normal 3.7-5.1 [facility] Comment on above: Order Comment: Rhina mason Type: BLOOD SPECIMEN Ordering Facility: [facility] Address: [address] [place] [address] Performed By: #### 2 4362-6 #### [facility] CLIA [id number] [address] [place] [address] [place] Sodium [Moles/Vol] 139 mmol/L Normal 136-144 [facility] Comment on above: Order Comment: Speci men Type: BLOOD SPECIMEN Ordering Facility: [facility] Address: [address] [place] [address] Performed By: #### 2 4362-6 #### [facility] CLIA [id number] [address] [place] [address] [place] Urea nitrogen [Mass/Vol] 16 mg/dL Normal 7-21 [facility] Comment on above: Order Comment: Speci men Type: BLOOD SPECIMEN Ordering Facility: [facility] Address: [address] [place] [address] Performed By: #### 2 4362-6 #### [facility] CLIA [id number] [address] [place] [address] [place] [id number] 07-06-2024 [id number] Normal [facility] BASIC METABOLIC PANELon 06-18 Anion gap [Moles/Vol] 9 mmol/L Normal 3-13 [facility] Comment on above: Performed By: #### L AB15 ####Gas Shovel Operator: VEMLA VALADEZ ([phone])[facility] ([facility])[address] [place] [address] Calcium [Mass/Vol] 8.9 mg/dL Normal 8.8-10.0 [facility] Comment on above: Performed By: #### L AB15 ####Gas Shovel Operator: VELMA VALADEZ ([phone])[facility] ([facility])[address] [place] [address] [place] Chloride [Moles/Vol] 113 mmol/L High 98-107 [facility] Comment on above: Performed By: #### L AB15 ####Gas Shovel Operator: VELMA VALADEZ ([phone])[facility] ([facility])[address] [place] [address] [place] CO2 [Moles/Vol] 18 mmol/L Low 23-31 [facility] Comment on above: Performed By: #### L AB15 ####Gas Shovel Operator: VELMA VALADEZ ([phone])[facility])[address] [place] [address] Creatinine [Mass/Vol] 0.86 mg/dL Normal 0.57-1.11 [facility] Comment on above: Performed By: #### L AB15 ####Gas Shovel Operator: VELMA VALADEZ ([phone])[facility])[address] [place] [address] GLOMERULAR FILTRATION RATE ML/MIN/1.73 SQ M.PREDICTED 66.7 mL/min/1.73m*2 Normal >60.0 [facility] Comment on above: Result Comment: Calc ulation based on the Chronic Kidney Disease Epidemiology Collaboration (CKD-EPI) equation refit without adjustment for race Performed By: #### L AB15 ####Gas Shovel Operator: VELMA VALADEZ ([phone])[facility])[address] [place] [address] Glucose [Mass/Vol] 74 mg/dL Low 82-115 [facility] Comment on above: Performed By: #### L AB15 ####Gas Shovel Operator: VELMA VALADEZ ([phone])[facility])[address] [place] [address] Potassium [Moles/Vol] 4.5 mmol/L Normal 3.5-5.1 [facility] Comment on above: Result Comment: [facility] potassium values may be up to 0.5 mmol/L lower than serum values. Performed By: #### L AB15 ####Gas Shovel Operator: VELMA VALADEZ ([phone])[facility])[address] [place] [address] Sodium [Moles/Vol] 140 mmol/L Normal 136-145 [facility] Comment on above: Performed By: #### L AB15 ####Gas Shovel Operator: VELMA VALADEZ ([phone])[facility])[address] [place] [address] [place] Urea nitrogen [Mass/Vol] 16 mg/dL Normal 9-23 [facility] Comment on above: Performed By: #### L AB15 ####Gas Shovel Operator: VELMA VALADEZ ([phone])[facility] ([address] Basic metabolic 1998 panelon 07-06-2024 Anion gap [Moles/Vol] 9 mmol/L 3 - 13 mmol/L [facility] Calcium [Mass/Vol] 8.9 mg/dL 8.8 - 10. 0 mg/dL [facility] Chloride [Moles/Vol] 113 mmol/L High 98 - 10 7 mmol/L [facility] CO2 [Moles/Vol] 18 mmol/L Low 23 - 31 mmol/L [facility] Creatinine [Mass/Vol] 0.86 mg/dL 0.57 - 1.11 mg/dL [facility] GFR/1.73 sq M.predicted (S/P/Bld) [Vol rate/Area] 66.7 mL/min - PINF [facility] Comment on above: Calculation based on the Chronic Kidney Disease Epidemiology Collaboration (CKD-EPI) equation refit without adjustment for race Glucose [Mass/Vol] 74 mg/dL Low 82 - 115 mg/dL [facility] Interpretation and review of laboratory results Abnormal [facility] Potassium [Moles/Vol] 4.5 mmol/L 3.5 - 5.1 mmol/L [facility] Comment on above: Plasma potassium chris ues may be up to 0.5 mmol/L lower than serum values. Sodium [Moles/Vol] 140 mmol/L 136 - 145 mmol/L [facility] Urea nitrogen [Mass/Vol] 16 mg/dL 9 - 23 mg/dL [facility] CBC W Auto Differential pane l (Bld)Ordered By: Daija Doran on 07-06-2024 Basophils (Bld) [#/Vol] 0 10*3/uL 0.0 - 0.2 10*3/uL [facility] Basophils/100 WBC (Bld) 0.5 % 0.0 - 2.0 % [facility] Eosinophils (Bld) [#/Vol] 0 10*3/uL 0.0 - 0.5 10*3/uL [facility] Eosinophils/100 WBC (Bld) 0.3 % 0.0 - 6.0 % [facility] [place] Erythrocyte distribution width (RBC) [Ratio] 17.8 % High 11.5 - 15.0 % [facility] Hematocrit (Bld) [Volume fraction] 31.8 % Low 35.0 - 47.0 % [facility] Hemoglobin (Bld) [Mass/Vol] 9.7 g/dL Low 11.7 - 16.0 g/dL [facility] Immature granulocytes (Bld) [#/Vol] 0 10*3/uL NINF - 0.1 10*3/uL [facility] Health Immature granulocytes/100 WBC (Bld) 0.3 % 0.0 - 2.0 % [facility] Interpretation and review of laboratory results Abnormal [facility] Lymphocytes (Bld) [#/Vol] 1.2 10*3/uL 1.0 - 4.3 10*3/uL [facility] Lymphocytes/100 WBC (Bld) 18.9 % 15.0 - 45.0 % [facility] MCH (RBC) [Entitic mass] 26.4 pg 26.0 - 34.0 pg [facility] MCHC (RBC) [Mass/Vol] 30.5 % 30.5 - 36.0 % [facility] MCV (RBC) [Entitic vol] 86.4 fL 77.0 - 99.0 fL [facility] [place] Monocytes (Bld) [#/Vol] 0.5 10*3/uL 0.0 - 0.9 10*3/uL [facility] Monocytes/100 WBC (Bld) 8.2 % 5.0 - 13.0 % [facility] Neutrophils (Bld) [#/Vol] 4.4 10*3/uL 1.8 - 7.5 10*3/uL [facility] Neutrophils/100 WBC (Bld) 71.8 % 38.0 - 82.0 % [facility] Nucleated RBC/100 WBC (Bld) [Ratio] 0 % [facility] [place] Platelet mean volume (Bld) [Entitic vol] 10.9 fL 9.0 - 12.7 fL [facility] Platelets (Bld) [#/Vol] 278 10*3/uL 140 - 440 10*3/uL [facility] RBC (Bld) [#/Vol] 3.68 10*6/uL Low 3.80 - 5.2 0 10*6/uL [facility] WBC (Bld) [#/Vol] 6.1 10*3/uL 3.6 - 10.7 10*3/uL [facility] CBC WITH AUTO DIFFERENTIALon 07-06-2024 Basophils (Bld) [#/Vol] 0.0 10*3/uL Normal 0.0-0.2 [facility] Comment on above: Performed By: #### L [id number] ####Gas Shovel Operator: VELMA VALADEZ ([phone])[facility])[address] [place] [address] Basophils/100 WBC (Bld) 0.5 % Normal 0.0-2.0 [facility] Comment on above: Performed By: #### L [id number] ####Gas Shovel Operator: VELMA VALADEZ ([phone])[facility])[address] [place] [address] Eosinophils (Bld) [#/Vol] 0.0 10*3/uL Normal 0.0-0.5 [facility] Comment on above: Performed By: #### L [id number] ####Gas Shovel Operator: VELMA VALADEZ ([phone])[facility])[address] [place] [address] Eosinophils/100 WBC (Bld) 0.3 % Normal 0.0-6.0 [facility] Comment on above: Performed By: #### L [id number] ####Gas Shovel Operator: VELMA VALADEZ ([phone])[address] Erythrocyte distribution width (RBC) [Ratio] 17.8 % High 11.5-15.0 [facility] Comment on above: Performed By: #### L [id number] ####Gas Shovel Operator: VELMA VALADEZ ([phone])[facility])[address] [place] [address] Hematocrit (Bld) [Volume fraction] 31.8 % Low 35.0-47.0 [facility] Comment on above: Performed By: #### L [id number] ####Gas Shovel Operator: VELMA VALADEZ ([phone])[facility])[address] [place] [address] Hemoglobin (Bld) [Mass/Vol] 9.7 g/dL Low 11.7-16.0 [facility] Comment on above: Performed By: #### L [id number] ####Gas Shovel Operator: VELMA VALADEZ ([phone])[facility])[address] [place] [address] IMMATURE GRANS % 0.3 % Normal 0.0-2.0 [facility] Comment on above: Performed By: #### L [id number] ####Gas Shovel Operator: VELMA VALADEZ ([phone])[facility])[address] [place] [address] IMMATURE GRANS ABSOLUTE 0.0 10*3/uL Normal <0.1 [facility] Comment on above: Performed By: #### L [id number] ####Gas Shovel Operator: VELMA VALADEZ ([phone])[facility])[address] [place] [address] Lymphocytes (Bld) [#/Vol] 1.2 10*3/uL Normal 1.0-4.3 [facility] Comment on above: Performed By: #### L [id number] ####Gas Shovel Operator: VELMA VALADEZ ([phone])[facility])[address] [place] [address] Lymphocytes/100 WBC (Bld) 18.9 % Normal 15.0-45.0 [facility] Comment on above: Performed By: #### L [id number] ####Gas Shovel Operator: VELMA VALADEZ ([phone])[facility])[address] [place] [address] MCH (RBC) [Entitic mass] 26.4 pg Normal 26.0-34.0 [facility] Comment on above: Performed By: #### L [id number] ####Gas Shovel Operator: VELMA VALADEZ ([phone])[facility])[address] [place] [address] MCHC 30.5 % Normal 30.5-36.0 [facility] Comment on above: Performed By: #### L [id number] ####Gas Shovel Operator: VELMA VALADEZ ([phone])[facility] ([facility])[address] [place] [address] MCV (RBC) [Entitic vol] 86.4 fL Normal 77.0-99.0 [facility] Comment on above: Performed By: #### L [id number] ####Gas Shovel Operator: VELMA VALADEZ ([phone])[facility] ([facility])[address] [place] [address] Monocytes (Bld) [#/Vol] 0.5 10*3/uL Normal 0.0-0.9 [facility] Comment on above: Performed By: #### L [id number] ####Gas Shovel Operator: VELMA VALADEZ ([phone])[facility] ([facility])[address] [place] [address] Monocytes/100 WBC (Bld) 8.2 % Normal 5.0-13.0 [facility] Comment on above: Performed By: #### L [id number] ####Gas Shovel Operator: VELMA VALADEZ ([phone])[facility] ([facility])[address] [place] [address] NEUTROPHILS ABSOLUTE 4.4 10*3/uL Normal 1.8-7.5 [facility] Comment on above: Performed By: #### L [id number] ####Gas Shovel Operator: VELMA VALADEZ ([phone])[facility] ([facility])[address] [place] [address] Neutrophils/100 WBC (Bld) 71.8 % Normal 38.0-82.0 [facility] Comment on above: Performed By: #### L [id number] ####Gas Shovel Operator: VELMA VALADEZ ([phone])[facility] ([facility])[address] [place] [address] [place] NRBC 0.0 /100 WBCs Normal 0.0-2.0 [facility] Comment on above: Performed By: #### L [id number] ####Gas Shovel Operator: VELMA VALADEZ ([phone])[facility] ([facility])[address] [place] [address] Platelet mean volume (Bld) [Entitic vol] 10.9 fL Normal 9.0-12.7 [facility] Comment on above: Performed By: #### L [id number] ####Gas Shovel Operator: VELMA VALADEZ ([phone])[facility] ([facility])[address] [place] [address] Platelets (Bld) [#/Vol] 278 10*3/uL Normal 140-440 [facility] Comment on above: Performed By: #### L [id number] ####Gas Shovel Operator: VELMA VALADEZ ([phone])[facility] ([facility])[address] [place] [address] RBC (Bld) [#/Vol] 3.68 10*6/uL Low 3.80-5.20 [facility] Comment on above: Performed By: #### L [id number] ####Gas Shovel Operator: VELMA VALADEZ ([phone])[facility] ([facility])[address] [place] [address] WBC (Bld) [#/Vol] 6.1 10*3/uL Normal 3.6-10.7 [facility] Comment on above: Performed By: #### L [id number] ####Gas Shovel Operator: VELMA VALADEZ ([phone])[facility] (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 - ypbqtoxqoyf-pqyhyblqt-j ilanter (TRELEGY ELLIPTA) 100-62.5-25 mcg inhalation powder [...] Status:Closed by RYAN ELIZONDO on 07/06/24 [facility]24 Consult Normal [facility] Nursing Noteon 07-06-2024 Nursing Note This RN called Protective Services to try and locate pts lost glasses from 07/05/2024. Glasses that match the description are in lost and found. Will attempt to see if glasses are a match. Normal [facility] Progress Noteon 07-06-2024 Progress Note Normal [facility] Progress Note Normal [facility] CBC (HEMOGRAM)on 07-05-2024 Erythrocyte distribution width (RBC) [Ratio] 17.2 % High 11.5-15.0 [facility] Comment on above: Performed By: #### L [id number] ####Gas Shovel Operator: VELMA VALADEZ ([phone])[facility])[address] [place] [address] Hematocrit (Bld) [Volume fraction] 32.8 % Low 35.0-47.0 [facility] Comment on above: Performed By: #### L [id number] ####Gas Shovel Operator: VELMA VALADEZ ([phone])[facility])[address] [place] [address] Hemoglobin (Bld) [Mass/Vol] 10.6 g/dL Low 11.7-16.0 [facility] Comment on above: Performed By: #### L [id number] ####Gas Shovel Operator: VELMA VALADEZ ([phone])[facility])[address] [place] [address] MCH (RBC) [Entitic mass] 26.4 pg Normal 26.0-34.0 [facility] Comment on above: Performed By: #### L [id number] ####Gas Shovel Operator: VELMA VALADEZ ([phone])[facility])[address] [place] [address] MCHC 32.3 % Normal 30.5-36.0 [facility] Comment on above: Performed By: #### L [id number] ####Gas Shovel Operator: VELMA VALADEZ ([phone])[facility])[address] [place] [address] MCV (RBC) [Entitic vol] 81.8 fL Normal 77.0-99.0 S [facility] Comment on above: Performed By: #### L [id number] ####Gas Shovel Operator: VELMA VALADEZ ([phone])[facility])[address] [place] [address] Platelet mean volume (Bld) [Entitic vol] 9.6 fL Normal 9.0-12.7 [facility] Comment on above: Performed By: #### L [id number] ####Gas Shovel Operator: VELMA VALADEZ ([phone])[facility])[address] [place] [address] Platelets (Bld) [#/Vol] 349 10*3/uL Normal 140-440 [facility] Comment on above: Performed By: #### L [id number] ####Gas Shovel Operator: VELMA VALADEZ ([phone])[facility])[address] [place] [address] RBC (Bld) [#/Vol] 4.01 10*6/uL Normal 3.80-5.20 [facility] Comment on above: Performed By: #### L [id number] ####Gas Shovel Operator: VELMA VALADEZ ([phone])[facility])[address] [place] [address] WBC (Bld) [#/Vol] 5.5 10*3/uL Normal 3.6-10.7 [facility] Comment on above: Performed By: #### L [id number] ####Gas Shovel Operator: VELMA VALADEZ ([phone])[address] CBC panel Auto (Bld)on 07-05 Erythrocyte distribution width (RBC) [Ratio] 17.2 % High 11.5 - 15.0 % [facility] Hematocrit (Bld) [Volume fraction] 32.8 % Low 35.0 - 47.0 % [facility] Hemoglobin (Bld) [Mass/Vol] 10.6 g/dL Low 11.7 - 16.0 g/dL [facility] Interpretation and review of laboratory results Abnormal [facility] MCH (RBC) [Entitic mass] 26.4 pg 26.0 - 34.0 pg [facility] MCHC (RBC) [Mass/Vol] 32.3 % 30.5 - 36.0 % [facility] MCV (RBC) [Entitic vol] 81.8 fL 77.0 - 99.0 fL [facility] Platelet mean volume (Bld) [Entitic vol] 9.6 fL 9.0 - 12.7 fL [facility] Platelets (Bld) [#/Vol] 349 10*3/uL 140 - 440 10*3/uL [facility] RBC (Bld) [#/Vol] 4.01 10*6/uL 3.80 - 5.2 0 10*6/uL [facility] WBC (Bld) [#/Vol] 5.5 10*3/uL 3.6 - 10.7 10*3/uL [facility] COMPREHENSIVE METABOLIC PANE Gilberto 07-05-2024 Albumin [Mass/Vol] 3.6 g/dL Normal 3.4-4.8 [facility] Comment on above: Performed By: #### L [id number], [id number] ####Gas Shovel Operator: VELMA VALADEZ ([phone])[facility] ([facility])[address] [place] [address] ALP [Catalytic activity/Vol] 94 U/L Normal 40-150 [facility] Comment on above: Performed By: #### L [id number], [id number] ####Gas Shovel Operator: VELMA VALADEZ ([phone])[facility] ([facility])[address] [place] [address] ALT [Catalytic activity/Vol] 23 U/L Normal <30 [facility] Comment on above: Performed By: #### L [id number], [id number] ####Gas Shovel Operator: VELMA VALADEZ ([phone])[facility] ([facility])[address] [place] [address] Anion gap [Moles/Vol] 10 mmol/L Normal 3-13 [facility] Comment on above: Performed By: #### L [id number], [id number] ####Gas Shovel Operator: VELMA VALADEZ ([phone])[facility] ([facility])[address] [place] [address] AST [Catalytic activity/Vol] 26 U/L Normal <34 [facility] Comment on above: Performed By: #### L [id number], [id number] ####Gas Shovel Operator: VELMA VALADEZ ([phone])[facility] ([facility])[address] Bilirubin [Mass/Vol] 0.7 mg/dL Normal <1.2 [facility] Comment on above: Performed By: #### L [id number], [id number] ####Gas Shovel Operator: VELMA VALADEZ ([phone])[facility] ([facility])[address] [place] [address] Calcium [Mass/Vol] 9.2 mg/dL Normal 8.8-10.0 [facility] Comment on above: Performed By: #### L [id number], [id number] ####Gas Shovel Operator: VELMA VALADEZ ([phone])[facility] ([facility])[address] [place] [address] Chloride [Moles/Vol] 107 mmol/L Normal 98-107 [facility] Comment on above: Performed By: #### Weston [id number], [id number] ####Gas Shovel Operator: VELMA VALADEZ ([phone])[facility] ([facility])[address] [place] [address] CO2 [Moles/Vol] 22 mmol/L Low 23-31 [facility] Comment on above: Performed By: #### L [id number], [id number] ####Gas Shovel Operator: VELMA VALADEZ ([phone])[facility] ([facility])[address] [place] [address] Creatinine [Mass/Vol] 0.82 mg/dL Normal 0.57-1.11 [facility] Comment on above: Performed By: #### L [id number], [id number] ####Gas Shovel Operator: VELMA VALADEZ ([phone])[facility] ([facility])[address] [place] [address] GLOMERULAR FILTRATION RATE ML/MIN/1.73 SQ M.PREDICTED 70.6 mL/min/1.73m*2 Normal >60.0 [facility] Comment on above: Result Comment: Calc ulation based on the Chronic Kidney Disease Epidemiology Collaboration (CKD-EPI) equation refit without adjustment for race Performed By: #### L [id number], [id number] ####Gas Shovel Operator: VELMA VALADEZ ([phone])[facility] ([facility])[address] [place] [address] Glucose [Mass/Vol] 118 mg/dL High 82-115 [facility] Comment on above: Performed By: #### L [id number], [id number] ####Gas Shovel Operator: VELMA VALADEZ ([phone])[facility] ([facility])[address] [place] [address] Potassium [Moles/Vol] 4.3 mmol/L Normal 3.5-5.1 [facility] Comment on above: Result Comment: [facility] potassium values may be up to 0.5 mmol/L lower than serum values. Performed By: #### L [id number], [id number] ####Gas Shovel Operator: VELMA VALADEZ ([phone])[facility] ([facility])[address] [place] [address] Protein [Mass/Vol] 7.0 g/dL Normal 6.4-8.3 [facility] Comment on above: Performed By: #### L [id number], LAB17 ####Gas Shovel Operator: VELMA VALADEZ ([phone])[facility] ([facility])[address] [place] [address] Sodium [Moles/Vol] 139 mmol/L Normal 136-145 [facility] Comment on above: Performed By: #### L [id number], [id number] ####Gas Shovel Operator: VELMA VALADEZ ([phone])[facility])[address] [place] [address] Urea nitrogen [Mass/Vol] 13 mg/dL Normal 9-23 [facility] Comment on above: Performed By: #### L [id number], LAB17 ####Gas Shovel Operator: VELMA VALADEZ ([phone])[facility])[address] [place] [address] CT HEAD NECK ANGIO W AND WO IV CONTRASTon 07-05-2024 CT HEAD NECK ANGIO W AND WO IV CONTRAST Normal [facility] CT HEAD WO IV CONTRASTon CT HEAD WO IV CONTRAST Normal [facility] CT Head WO contraston 2023 Patient Name: MEL CARVER RD : 1940 [facility]#: [id number] Exam Date/Time: 07/05/2024 04:36 Procedure: CT HEAD [...] of the cervica (more content not included)... [facility], Cirilo Khalil MD - 07/05/2024 [facility] Name: [facility] POP [facility] 1940 [id number] Exam Date/Time: 07/05/2024 04:36 Procedure: CT HEAD [...] acute consolidative process (more content not included)... [facility] CT PERFUSIONon 07-05-2024 CT PERFUSION Normal [facility] CTA Head vessels and Neck ve ssels WO and W contrast Cheryl 07-05-2024 Patient Name: MEL CARVER RD : 1940 [facility]#: [id number] Exam Date/Time: 07/05/2024 04:36 Procedure: CT HEAD [...] Multilevel degenerative chopra (more content not included)... [facility] Cory, Cirilo Khalil MD - 07/05/2024 Patient Name: MEL POP : 1940 [facility]#: [id number] Exam Date/Time: 07/05/2024 04:36 Procedure: CT HEAD [...] no acute conso (more content not included)... [facility] Comprehensive metabolic 1998 panelon 07-05-2024 Albumin [Mass/Vol] 3.6 g/dL 3.4 - 4.8 g/dL [facility] ALP [Catalytic activity/Vol] 94 U/L 40 - 150 U/L [facility] ALT [Catalytic activity/Vol] 23 U/L [facility] - 30 U/L [facility] Anion gap [Moles/Vol] 10 mmol/L 3 - 13 mmol/L [facility] AST [Catalytic activity/Vol] 26 U/L [facility] - 34 U/L [facility] Bilirubin [Mass/Vol] 0.7 mg/dL [facility] - 1.2 mg/dL [facility] Calcium [Mass/Vol] 9.2 mg/dL 8.8 - 10. 0 mg/dL [facility] Chloride [Moles/Vol] 107 mmol/L 98 - 10 7 mmol/L [facility] CO2 [Moles/Vol] 22 mmol/L Low 23 - 31 mmol/L [facility] Creatinine [Mass/Vol] 0.82 mg/dL 0.57 - 1.11 mg/dL [facility] GFR/1.73 sq M.predicted (S/P/Bld) [Vol rate/Area] 70.6 mL/min - PINF [facility] Comment on above: Calculation based on the Chronic Kidney Disease Epidemiology Collaboration (CKD-EPI) equation refit without adjustment for race Glucose [Mass/Vol] 118 mg/dL High 82 - 115 mg/dL [facility] Interpretation and review of laboratory results Abnormal [facility] Potassium [Moles/Vol] 4.3 mmol/L 3.5 - 5.1 mmol/L [facility] Comment on above: Plasma potassium chris ues may be up to 0.5 mmol/L lower than serum values. Protein [Mass/Vol] 7 g/dL 6.4 - 8.3 g/dL [facility] Sodium [Moles/Vol] 139 mmol/L 136 - 145 mmol/L [facility] Urea nitrogen [Mass/Vol] 13 mg/dL 9 - 23 mg/dL [facility] Consulton 07-05-2024 Consult Normal [facility] Consult Normal [facility] Consult Normal [facility] Consult Normal [facility] ECG 12-LEADon 07-05-2024 ECG 12-LEAD IMPRESSION: Atrial fibrillation Electronically Signed On 07-05-2024 12:39:21 EST by Jhonatan Hernandez [facility] ED Nursing Noteon 07-05-[address] Carlson at bedside. Normal [facility] ED Nursing Note Provider notified of patient request for pain meds. Normal [facility] ED Nursing Note Dr. Carlson at bedside [facility] ED Nursing Note Patient is returning back to room 32 at this time with Jose, Medic. Normal [facility] ED Nursing Note Pt emergently going to eye clinic. Pt being transported in wheelchair with trauma float RADHA Hinkle and Maritza FRAGA Pt being transported on zoll monitor and acls kit. Normal [facility] ED Nursing Note Ophthalmology at bedside [facility] ED Nursing Note Report to Maritza FRAGA [facility] ED Provider Noteon ED Provider Note Normal [facility] HEMOGLOBIN A1Con 07-05-2024 Glucose [Mass/Vol] 120 mg/dL Normal [facility] Comment on above: Result Comment: ORDE R COMMENTS:HbA1c values of 5.7-6.4 percent indicate an increased risk for developing diabetes mellitus. HbA1c values greater than or equal to 6.5 percent are diagnostic of diabetes mellitus. For diagnosis of diabetes in individuals without unequivocal hyperglycemia, results should be confirmed by repeat testing. Performed By: #### L [id number] ####Gas Shovel Operator: VELMA VALADEZ ([phone])[facility] ([facility])[address] [place] [address] HEMOGLOBIN A1C 5.8 %HbA1C High <5.7 [facility] Comment on above: Result Comment: Norm al less than 5.7%Prediabetes 5.7% to 6.4%Diabetes 6.5% or higher--HgbA1C levels may not be accurate in patients who have renal disease, received recent blood transfusions, are anemic, or who have dyshemoglobinemia. Performed By: #### L [id number] ####Gas Shovel Operator: VELMA VALADEZ ([phone])[facility] ([facility])[address] [place] [address] HIGH SENSITIVITY TROPONIN, S ERIAL BASELINEon 07-05-2024 TROPONIN HIGH SENSITIVITY BASELINE 14 ng/L Normal <=14 [facility] Comment on above: Performed By: #### L [id number] ####Gas Shovel Operator: VELMA VALADEZ ([phone])[facility] ([facility])[address] [place] [address] HIGH SENSITIVITY TROPONIN, S ERIAL, SECOND TESTon 07-05-2024 TROPONIN HS DELTA, BASELINE TO SECOND -5 ng/L Normal <=2 [facility] Comment on above: Result Comment: This specimen [...] further clinical guidance. Performed By: #### L [id number], [id number] ####Gas Shovel Operator: VELMA VALADEZ ([phone])[facility] ([facility])[address] [place] [address] TROPONIN HS, SERIAL REFLEX, TEST TWO 9 ng/L Normal <=14 [facility] Comment on above: Performed By: #### L [id number], [id number] ####Gas Shovel Operator: VELMA VALADEZ ([phone])[facility] ([facility])[address] [place] [address] Laboratory - Chemistry and C hemistry - challengeon 07-05-2024 Average glucose Estimated from glycated hemoglobin (Bld) [Mass/Vol] 120 mg/dL [facility] [place] Anion gap (Bld) [Moles/Vol] 8 mmol/L 3.00 - 13.00 [facility] Calcium.ionized (Bld) [Moles/Vol] 4.5 mg/dl 4.30 - 5.20 mg/dl [facility] Comment on above: Performed by [employer] CLIA ID:[id number] [place], [place] Device: [id number] Milking Worker ID: [id number] Chloride [Moles/Vol] 108 mmol/L 98 - 11 4 mmol/L [facility] [place] CO2 [Moles/Vol] 23 mmol/L 21 - 29 mmol/L [facility] Creatinine [Mass/Vol] 0.9 mg/dL 0.6 - 1.3 mg/dL [facility] GFR/1.73 sq M.predicted CKD-EPI (S/P/Bld) [Vol rate/Area] 63.2 [facility] Comment on above: KDIGO guidelines pro vide [...] 104 mg/dL High 70 - 100 mg/dL [facility] Potassium [Moles/Vol] 4.5 mmol/L 3.4 - 5.1 mmol/L [facility] Sodium [Moles/Vol] 139 mmol/L 133 - 145 mmol/L [facility] Urea (Bld) [Mass/Vol] 14 mg/dL 4 - 22 mg/dL [facility] Glucose [Mass/Vol] 104 mg/dL High 70 - 100 mg/dL [facility] Laboratory - Coagulationon 1 09-05-2023 aPTT Coag (PPP) [Time] 30.4 s 20.0 - 30.5 s [facility] INR Coag (PPP) [Relative time] 1 {INR} 0.9 - 1.1 [facility] Comment on above: Recommended Anticoag ulant Therapy: [...] 11.7 s 9.0 - 1 2.0 s [facility] Laboratory - Hematology and Cell countson 07-05-2024 HbA1c (Bld) [Mass fraction] 5.8 % High NINF [facility] Comment on above: Normal less than 5.7 [...] MD Electronically Signed Date/Time: 07/05/2024 12:13 PM [facility] [employer] Patient Name: MEL CARVER RD [facility] 1940 [id number] Exam Date/Time: 07/05/2024 11:45 Procedure: MR BRAIN [...] There is artifact within the right globe. [facility] Ming Fry MD - 07/05/2024 Patient Name: MEL POP [facility] 1940 [id number] Exam Date/Time: 07/05/2024 11:45 Procedure: MR BRAIN [...] Electronically Signed Date/Time: 07/05/2024 12:13 PM EST [facility] Radiology Study observation (narrative) [facility] MR Brain WO contrastOrdered By: Ming Fry on 07-05-2024 [facility] Work Phone: No Panel Informationon 07-05 Heart Rate 59 bpm [facility] [place] P Butler 0 degrees [facility] VA Interval 0 ms [facility] QRS Butler 37 degrees [facility] [place] QRSD Interval 98 ms [facility] Healt [facility] QT Interval 423 ms [facility] QTC Interval 418 ms [facility] T Wave Butler 29 degrees [facility] Atrial fibrillation Electronically Signed On 07-05-2024 12:39:21 EST by Jhonatan Hernandez CV Jhonatan Abdi MD - 07/05/2024 IMPRESSION: Atrial fibrillation Electronically Signed On 07-05-2024 12:39:21 EST by Jhonatan Hernandez [facility] Interpretation and review of laboratory results Abnormal [facility] HbA1c values of 5.7- 6.4 percent indicate an increased risk for developing diabetes mellitus. HbA1c values greater than or equal to 6.5 percent are diagnostic of diabetes mellitus. For diagnosis of diabetes in individuals without unequivocal hyperglycemia, results should be confirmed by repeat testing. [facility] Troponin HS Delta, Baseline to Second -5 ng/L NINF - 2 ng/L [facility] Comment on above: This specimen was co [...] guidance. Troponin HS, Serial Second 9 ng/L [facility] ng/L [facility] 1. No acute intracranial hemorrhage or territorial [...] Electronically Signed Date/Time: 07/05/2024 5:03 AM EST [facility] Patient Name: MEL CARVER RD [facility] 1940 [facility] [id number] Exam Date/Time: 07/05/2024 04:36 Procedure: CT PERFUSION [...] the cervical spine. (more content not included)... [facility] Cory, Cirilo Khalil MD - 07/05/2024 Patient Name: MEL POP : 1940 [facility]#: [id number] Exam Date/Time: 07/05/2024 04:36 Procedure: CT PERFUSION [...] process or suspici (more content not included)... [facility] Interpretation and review of laboratory results Normal [facility] [place] Troponin HS, Serial Baseline 14 ng/L NINF - 14 ng/L [facility] [place] [facility] Interpretation and review of laboratory results Normal [facility] Interpretation and review of laboratory results Abnormal [facility] Performed by: Tuebora FIZZA [facility], [address] [place] [address] CLIA ID: [id number] [facility] Radiology Study observation (narrative) [facility] Interpretation and review of laboratory results Abnormal [facility] Performed by: TueboraHenry Ford Jackson HospitalRock Rapids [facility], [address] [place] [address] CLIA ID: [id number] [facility] [place] No Panel InformationOrdered By: Cirilo Ray on 07-05-2024 [facility] [place] Work Phone: PROTIME AND APTTon aPTT Coag (Bld) [Time] 30.4 s Normal 20.0-30.5 [facility] Comment on above: Performed By: #### L [id number] ####Gas Shovel Operator: VELMA VALADEZ ([phone])[facility] ([facility])[address] [place] [address] INR Coag (PPP) [Relative time] 1.0 {INR} Normal 0.9-1.1 [facility] Comment on above: Result Comment: Timothy mmended [...] prevent Myocardial Infarction Performed By: #### L [id number] ####Gas Shovel Operator: VELMA VALADEZ ([phone])[facility])[address] [place] [address] PT Coag (PPP) [Time] 11.7 s Normal 9.0-12.0 [facility] Comment on above: Performed By: #### L [id number] ####Gas Shovel Operator: VELMA VALADEZ ([phone])[facility] ([facility])[address] [place] [address] Progress Noteon 07-05-2024 Progress Note Normal [facility] CBC panel Auto (Bld)on 07-02 Erythrocyte distribution width (RBC) [Ratio] 16.9 % High 11.5 - 15.0 % [facility] Hematocrit (Bld) [Volume fraction] 29.6 % Low 36.0 - 46.0 % [facility] Hemoglobin (Bld) [Mass/Vol] 9.3 g/dL Low 11.5 - 15.5 g/dL [facility] Interpretation and review of laboratory results Abnormal [facility] MCH (RBC) [Entitic mass] 26.7 pg 26.0 - 34.0 pg [facility] MCHC (RBC) [Mass/Vol] 31.4 g/dL 30.5 - 36.0 g/dL [facility] MCV (RBC) [Entitic vol] 85.1 fL 80.0 - 100.0 fL [facility] Nucleated RBC (Bld) [#/Vol] NINF [facility] Platelet mean volume (Bld) [Entitic vol] 10.2 fL 9.0 - 12.7 fL [facility] Platelets (Bld) [#/Vol] 324 10*3/uL [facility] RBC (Bld) [#/Vol] 3.48 10*6/uL Low 3.90 - 5.2 0 m/uL [facility] WBC (Bld) [#/Vol] 5.12 10*3/uL [facility] Erythrocyte distribution width (RBC) [Ratio] 16.9 % High 11.5-15.0 [facility] Comment on above: Order Comment: Speci men Type: BLOOD SPECIMENOrdering Facility: [facility] Address: [address] [place] [address] Performed By: #### 5 8410-2 ####[facility]ORGAN LABORATORYCLIA [id number] [address] Hematocrit (Bld) [Volume fraction] 29.6 % Low 36.0-46.0 [facility] Comment on above: Order Comment: Speci men Type: BLOOD SPECIMENOrdering Facility: [facility] Address: [address] [place] [address] Performed By: #### 5 8410-2 ####MORGAN LABORATORYCLIA [id number] [place] [address] [place] Hemoglobin (Bld) [Mass/Vol] 9.3 g/dL Low 11.5-15.5 [facility] Comment on above: Order Comment: Speci men Type: BLOOD SPECIMENOrdering Facility: [facility] Address: [address] [place] [address] Performed By: #### 5 8410-2 ####MORGAN LABORATORYCLIA [id number] [place] [address] [place] MCH (RBC) [Entitic mass] 26.7 pg Normal 26.0-34.0 [facility] Comment on above: Order Comment: Speci men Type: BLOOD SPECIMENOrdering Facility: [facility] Address: [address] [place] [address] Performed By: #### 5 8410-2 ####MORGAN LABORATORYCLIA [id number] [address] [place] MCHC (RBC) [Mass/Vol] 31.4 g/dL Normal 30.5-36.0 [facility] Comment on above: Order Comment: Speci men Type: BLOOD SPECIMENOrdering Facility: [facility] Address: [address] [place] [address] Performed By: #### 5 8410-2 ####MORGAN LABORATORYCLIA [id number] [address] [place] MCV (RBC) [Entitic vol] 85.1 fL Normal 80.0-100.0 [facility] Comment on above: Order Comment: Speci men Type: BLOOD SPECIMENOrdering Facility: [facility] Address: [address] [place] [address] Performed By: #### 5 8410-2 ####MORGAN LABORATORYCLIA [id number] [place] [address] [place] Nucleated RBC (Bld) [#/Vol] 10*3/uL Normal <0.01 [facility] Comment on above: Order Comment: Speci men Type: BLOOD SPECIMENOrdering Facility: [facility] Address: [address] [place] [address] Performed By: #### 5 8410-2 ####MORGAN LABORATORYCLIA [id number] [place] [address] [place] Platelet mean volume (Bld) [Entitic vol] 10.2 fL Normal 9.0-12.7 [facility] Comment on above: Order Comment: Speci men Type: BLOOD SPECIMENOrdering Facility: [facility] Address: [address] [place] [address] Performed By: #### 5 8410-2 ####MORGAN LABORATORYCLIA [id number] [place] [address] [place] Platelets (Bld) [#/Vol] 324 10*3/uL Normal 150-400 [facility] Comment on above: Order Comment: Speci men Type: BLOOD SPECIMENOrdering Facility: [facility] Address: [address] [place] [address] Performed By: #### 5 8410-2 ####MORGAN LABORATORYCLIA [id number] [place] [id number] [place] RBC (Bld) [#/Vol] 3.48 10*6/uL Low 3.90-5.20 [facility] Comment on above: Order Comment: Speci men Type: BLOOD SPECIMENOrdering Facility: [facility] Address: [address] [place] [address] Performed By: #### 5 8410-2 ####MORGAN LABORATORYCLIA [id number] [place] [address] [facility] WBC (Bld) [#/Vol] 5.12 10*3/uL Normal 3.70-11.00 [facility] Comment on above: Order Comment: Speci men Type: BLOOD SPECIMENOrdering Facility: [facility] Address: [address] [place] [address] Performed By: #### 5 8410-2 ####[facility] [facility] [id number] [place] [id number] [facility] CBC panel Auto (Bld)on 06-28 Erythrocyte distribution width (RBC) [Ratio] 16.6 % High 11.5 - 15.0 % [facility] Hematocrit (Bld) [Volume fraction] 28.8 % Low 36.0 - 46.0 % [facility] Hemoglobin (Bld) [Mass/Vol] 9.0 g/dL Low 11.5 - 15.5 g/dL [facility] Interpretation and review of laboratory results Abnormal [facility] MCH (RBC) [Entitic mass] 26.8 pg 26.0 - 34.0 pg [facility] MCHC (RBC) [Mass/Vol] 31.3 g/dL 30.5 - 36.0 g/dL [facility] MCV (RBC) [Entitic vol] 85.7 fL 80.0 - 100.0 fL [facility] Nucleated RBC (Bld) [#/Vol] NINF [facility] Platelet mean volume (Bld) [Entitic vol] 10.5 fL 9.0 - 12.7 fL [facility] Platelets (Bld) [#/Vol] 316 10*3/uL [facility] RBC (Bld) [#/Vol] 3.36 10*6/uL Low 3.90 - 5.2 0 m/uL [facility] WBC (Bld) [#/Vol] 5.27 10*3/uL [facility] Erythrocyte distribution width (RBC) [Ratio] 16.6 % High 11.5-15.0 [facility] Comment on above: Order Comment: Speci men Type: BLOOD SPECIMEN [facility] Facility: [facility] Address: [address] [place] [address] Performed By: #### 2 276-4 #### [facility] CLIA [id number] [address] [place] [address] [place] Hematocrit (Bld) [Volume fraction] 28.8 % Low 36.0-46.0 [facility] Comment on above: Order Comment: Speci men Type: BLOOD SPECIMEN [facility] Facility: [facility] Address: [address] [place] [address] Performed By: #### 2 276-4 #### [facility] CLIA [id number] [address] [place] [address] [place] Hemoglobin (Bld) [Mass/Vol] 9.0 g/dL Low 11.5-15.5 [facility] Comment on above: Order Comment: Speci men Type: BLOOD SPECIMEN [facility] Facility: [facility] Address: [address] [place] [address] Performed By: #### 2 276-4 #### [facility] CLIA [id number] [address] [place] [address] [place] MCH (RBC) [Entitic mass] 26.8 pg Normal 26.0-34.0 [facility] Comment on above: Order Comment: Speci men Type: BLOOD SPECIMEN [facility] Facility: [facility] Address: [address] [place] [address] Performed By: #### 2 276-4 #### [facility] CLIA [id number] [address] [place] [address] [place] MCHC (RBC) [Mass/Vol] 31.3 g/dL Normal 30.5-36.0 [facility] Comment on above: Order Comment: Speci men Type: BLOOD SPECIMEN [facility] Facility: [facility] Address: [address] [place] [address] Performed By: #### 2 276-4 #### [facility] CLIA [id number] [address] [place] [address] [place] MCV (RBC) [Entitic vol] 85.7 fL Normal 80.0-100.0 [facility] Comment on above: Order Comment: Speci men Type: BLOOD SPECIMEN [facility] Facility: [facility] Address: [address] [place] [address] Performed By: #### 2 276-4 #### [facility] CLIA [id number] [address] [place] [address] [place] Nucleated RBC (Bld) [#/Vol] 10*3/uL Normal <0.01 [facility] Comment on above: Order Comment: Speci men Type: BLOOD SPECIMEN [facility] Facility: [facility] Address: [address] [place] [address] Performed By: #### 2 276-4 #### [facility] CLIA [id number] [address] [place] [address] [place] Platelet mean volume (Bld) [Entitic vol] 10.5 fL Normal 9.0-12.7 [facility] Comment on above: Order Comment: Speci men Type: BLOOD SPECIMEN [facility] Facility: [facility] Address: [address] [place] [address] Performed By: #### 2 276-4 #### [facility] CLIA [id number] [address] [place] [address] [place] Platelets (Bld) [#/Vol] 316 10*3/uL Normal 150-400 [facility] Comment on above: Order Comment: Speci men Type: BLOOD SPECIMEN [facility] Facility: [facility] Address: [address] [place] [address] Performed By: #### 2 276-4 #### [facility] CLIA [id number] [address] [place] [address] [place] RBC (Bld) [#/Vol] 3.36 10*6/uL Low 3.90-5.20 [facility] Comment on above: Order Comment: Speci men Type: BLOOD SPECIMEN [facility] Facility: [facility] Address: [address] [place] [address] Performed By: #### 2 276-4 #### [facility] CLIA [id number] [address] [place] [address] [place] WBC (Bld) [#/Vol] 5.27 10*3/uL Normal 3.70-11.00 [facility] Comment on above: Order Comment: Speci men Type: BLOOD SPECIMEN [facility] Facility: [facility] Address: [address] [place] [address] Performed By: #### 2 276-4 #### [facility] CLIA [id number] [address] [place] [address] [place] FERRITINon 06-27-2024 Ferritin [Mass/Vol] 67.5 ng/mL 14.7 - 205.1 ng/mL [facility] Ferritin SerPl-mCncon 2023 Ferritin [Mass/Vol] 67.5 ng/mL Normal 14.7-205.1 [facility] Comment on above: Order Comment: Speci men Type: BLOOD SPECIMEN [facility] Facility: [facility] Address: [address] [place] [address] Performed By: #### 2 276-4 #### [facility] CLIA [id number] [address] [place] [address] [place] Ferritin [Mass/Vol]on 2023 Interpretation and review of laboratory results Normal [facility] Iron and Iron binding capaci ty panelon 06-27-2024 Interpretation and review of laboratory results Abnormal [facility] Iron [Mass/Vol] 30 ug/dL Low 41 - 186 ug/dL [facility] Iron binding capacity [Mass/Vol] 298 ug/dL 232 - 386 ug/dL [facility] Iron/TIBC [Molar ratio] 10.1 % Low 15.0 - 57.0 % [facility] Iron [Mass/Vol] 30 ug/dL Low 41-186 [facility] Comment on above: Order Comment: Speci men Type: BLOOD SPECIMEN [facility] Facility: [facility] Address: [address] [place] [address] Performed By: #### 2 276-4 #### [facility] CLIA [id number] [address] [place] [address] [facility] Iron binding capacity [Mass/Vol] 298 ug/dL Normal 232-386 [facility] Comment on above: Order Comment: Speci isabella Type: BLOOD SPECIMEN [facility] Facility: [facility] Address: [address] [place] [address] Performed By: #### 2 276-4 #### [facility] CLIA [id number] [address] [place] [address] Iron/TIBC [Molar ratio] 10.1 % Low 15.0-57.0 [facility] Comment on above: Order Comment: Speci men Type: BLOOD SPECIMEN [facility] Facility[facility] Address: [address] [place] [address] Performed By: #### 2 276-4 #### [facility] CLIA [id number] [address] [place] [address] CBC panel Auto (Bld)on 06-25 Erythrocyte distribution width (RBC) [Ratio] 15.9 % High 11.5 - 15.0 % [facility] Hematocrit (Bld) [Volume fraction] 28.7 % Low 36.0 - 46.0 % [facility] Hemoglobin (Bld) [Mass/Vol] 9.0 g/dL Low 11.5 - 15.5 g/dL [facility] Interpretation and review of laboratory results Abnormal [facility] MCH (RBC) [Entitic mass] 26.7 pg 26.0 - 34.0 pg [facility] MCHC (RBC) [Mass/Vol] 31.4 g/dL 30.5 - 36.0 g/dL [facility] MCV (RBC) [Entitic vol] 85.2 fL 80.0 - 100.0 fL [facility] Nucleated RBC (Bld) [#/Vol] NINF [facility] Platelet mean volume (Bld) [Entitic vol] 10.8 fL 9.0 - 12.7 fL [facility] Platelets (Bld) [#/Vol] 315 10*3/uL [facility] RBC (Bld) [#/Vol] 3.37 10*6/uL Low 3.90 - 5.2 0 m/uL [facility] WBC (Bld) [#/Vol] 4.96 10*3/uL [facility] Erythrocyte distribution width (RBC) [Ratio] 15.9 % High 11.5-15.0 [facility] Comment on above: Order Comment: Speci men Type: BLOOD SPECIMEN Ordering Facility: [facility] Address: [address] [place] [address] Performed By: #### 2 4362-6 #### [facility] CLIA [id number] [address] [place] [address] [place] Hematocrit (Bld) [Volume fraction] 28.7 % Low 36.0-46.0 [facility] Comment on above: Order Comment: Speci men Type: BLOOD SPECIMEN Ordering Facility: [facility] Address: [address] [place] [address] Performed By: #### 2 4362-6 #### [facility] CLIA [id number] [address] [place] [address] [place] Hemoglobin (Bld) [Mass/Vol] 9.0 g/dL Low 11.5-15.5 [facility] Comment on above: Order Comment: Speci men Type: BLOOD SPECIMEN Ordering Facility: [facility] Address: [address] [place] [address] Performed By: #### 2 4362-6 #### [facility] CLIA [id number] [address] [place] [address] [place] MCH (RBC) [Entitic mass] 26.7 pg Normal 26.0-34.0 [facility] Comment on above: Order Comment: Speci men Type: BLOOD SPECIMEN Ordering Facility: [facility] Address: [address] [place] [address] Performed By: #### 2 4362-6 #### [facility] CLIA [id number] [address] [place] [address] [place] MCHC (RBC) [Mass/Vol] 31.4 g/dL Normal 30.5-36.0 [facility] Comment on above: Order Comment: Speci men Type: BLOOD SPECIMEN Ordering Facility: [facility] Address: [address] [place] [address] Performed By: #### 2 4362-6 #### [facility] CLIA [id number] [address] [place] [address] [place] MCV (RBC) [Entitic vol] 85.2 fL Normal 80.0-100.0 [facility] Comment on above: Order Comment: Speci men Type: BLOOD SPECIMEN Ordering Facility: [facility] Address: [address] [place] [address] Performed By: #### 2 4362-6 #### [facility] CLIA [id number] [address] [place] [address] [place] Nucleated RBC (Bld) [#/Vol] 10*3/uL Normal <0.01 [facility] Comment on above: Order Comment: Speci men Type: BLOOD SPECIMEN Ordering Facility: [facility] Address: [address] [place] [address] Performed By: #### 2 4362-6 #### [facility] CLIA [id number] [address] [place] [address] [place] Platelet mean volume (Bld) [Entitic vol] 10.8 fL Normal 9.0-12.7 [facility] Comment on above: Order Comment: Speci men Type: BLOOD SPECIMEN Ordering Facility: [facility] Address: [address] [place] [address] Performed By: #### 2 4362-6 #### [facility] CLIA [id number] [address] [place] [address] [place] Platelets (Bld) [#/Vol] 315 10*3/uL Normal 150-400 [facility] Comment on above: Order Comment: Speci men Type: BLOOD SPECIMEN Ordering Facility: [facility] Address: [address] [place] [address] Performed By: #### 2 4362-6 #### [facility] CLIA [id number] [address] [place] [address] [place] RBC (Bld) [#/Vol] 3.37 10*6/uL Low 3.90-5.20 [facility] Comment on above: Order Comment: Speci men Type: BLOOD SPECIMEN Ordering Facility: [facility] Address: [address] [place] [address] Performed By: #### 2 4362-6 #### [facility] CLIA [id number] [address] [place] [address] [place] WBC (Bld) [#/Vol] 4.96 10*3/uL Normal 3.70-11.00 [facility] Comment on above: Order Comment: Speci men Type: BLOOD SPECIMEN Ordering Facility: [facility] Address: [address] [place] [address] Performed By: #### 2 4362-6 #### [facility] CLIA [id number] [address] [place] [address] [place] Basic metabolic 2000 panelon 06-21-2024 Anion gap [Moles/Vol] 12 mmol/L 8 - 15 mmol/L [facility] Calcium [Mass/Vol] 9.3 mg/dL 8.5 - 10. 2 mg/dL [facility] Chloride [Moles/Vol] 108 mmol/L High 98 - 10 7 mmol/L [facility] CO2 [Moles/Vol] 21 mmol/L Low 22 - 30 mmol/L [facility] Creatinine [Mass/Vol] 0.92 mg/dL 0.58 - 0.96 mg/dL [facility] GFR/1.73 sq M.predicted among non-blacks MDRD (S/P/Bld) [Vol rate/Area] 62 mL/min/{1.73_m2} - PINF [facility] Comment on above: Estimated Glomerular Filtration [...] 101 mg/dL High 74 - 99 mg/dL [facility] Comment on above: The [place] Diabete s Association (ADA) provides guidance for [...] Standards of Medical Care in Diabetes 2016, [place] Diabetes Association. Diabetes Care. 2016.39(Suppl 1). Interpretation and review of laboratory results Abnormal [facility] Potassium [Moles/Vol] 4.6 mmol/L 3.7 - 5.1 mmol/L [facility] Sodium [Moles/Vol] 141 mmol/L 136 - 144 mmol/L [facility] Urea nitrogen [Mass/Vol] 22 mg/dL High 7 - 21 mg/dL [facility] Anion gap [Moles/Vol] 12 mmol/L Normal 8-15 [facility] Comment on above: Order Comment: Rhina mason Type: BLOOD SPECIMEN Ordering Facility: [facility] Address: [address] [place] [address] Performed By: #### 2 4362-6 #### [facility] CLIA [id number] [address] [place] [address] [place] Calcium [Mass/Vol] 9.3 mg/dL Normal 8.5-10.2 [facility] Comment on above: Order Comment: Samiri men Type: BLOOD SPECIMEN Ordering Facility: [facility] Address: [address] [place] [address] Performed By: #### 2 4362-6 #### [facility] CLIA [id number] [address] [place] [address] [place] Chloride [Moles/Vol] 108 mmol/L High 98-107 [facility] Comment on above: Order Comment: Speci men Type: BLOOD SPECIMEN Ordering Facility: [facility] Address: [address] [place] [address] Performed By: #### 2 4362-6 #### [facility] CLIA [id number] [address] [place] [address] [place] CO2 [Moles/Vol] 21 mmol/L Low 22-30 [facility] Comment on above: Order Comment: Speci men Type: BLOOD SPECIMEN Ordering Facility: [facility] Address: [address] [place] [address] Performed By: #### 2 4362-6 #### [facility] CLIA [id number] [address] [place] [address] [place] Creatinine [Mass/Vol] 0.92 mg/dL Normal 0.58-0.96 [facility] Comment on above: Order Comment: Speci men Type: BLOOD SPECIMEN Ordering Facility: [facility] Address: [address] [place] [address] Performed By: #### 2 4362-6 #### [facility] CLIA [id number] [address] [place] [address] [place] Creatinine and Glomerular filtration rate.predicted panel (S/P/Bld) 62 mL/min/1.73m??? Normal >=60 [facility] Comment on above: Order Comment: Speci men Type: BLOOD SPECIMEN Ordering Facility: [facility] Address: [address] [place] [address] Result Comment: Isa mated Glomerular Filtration Rate [...] GFR. Performed By: #### 2 4362-6 #### [facility] CLIA [id number] [address] [place] [address] [place] Glucose [Mass/Vol] 101 mg/dL High 74-99 [facility] Comment on above: Order Comment: Rhina mason Type: BLOOD SPECIMEN Ordering Facility: [facility] Address: [address] [place] [address] Result Comment: The [place] Diabetes Association (ADA) provides guidance for cutoff [...] Standards of Medical Care in Diabetes 2016, [place] Diabetes Association. Diabetes Care. 2016.39(Suppl 1). Performed By: #### 2 4362-6 #### [facility] CLIA [id number] [address] [place] [address] [place] Potassium [Moles/Vol] 4.6 mmol/L Normal 3.7-5.1 [facility] Comment on above: Order Comment: Rhina mason Type: BLOOD SPECIMEN Ordering Facility: [facility] Address: [address] [place] [address] Performed By: #### 2 4362-6 #### [facility] CLIA [id number] [address] [place] [address] [place] Sodium [Moles/Vol] 141 mmol/L Normal 136-144 [facility] Comment on above: Order Comment: Rhina mason Type: BLOOD SPECIMEN Ordering Facility: [facility] Address: [address] [place] [address] Performed By: #### 2 4362-6 #### [facility] CLIA [id number] [address] [place] [address] [place] Urea nitrogen [Mass/Vol] 22 mg/dL High 7-21 [facility] Comment on above: Order Comment: Speci men Type: BLOOD SPECIMEN Ordering Facility: [facility] Address: [address] [place] [address] Performed By: #### 2 4362-6 #### [facility] CLIA [id number] [address] [place] [address] [place] CBC panel Auto (Bld)on 06-21 Erythrocyte distribution width (RBC) [Ratio] 15.8 % High 11.5 - 15.0 % [facility] Hematocrit (Bld) [Volume fraction] 34.2 % Low 36.0 - 46.0 % [facility] Hemoglobin (Bld) [Mass/Vol] 10.6 g/dL Low 11.5 - 15.5 g/dL [facility] Interpretation and review of laboratory results Abnormal [facility] MCH (RBC) [Entitic mass] 26.4 pg 26.0 - 34.0 pg [facility] MCHC (RBC) [Mass/Vol] 31.0 g/dL 30.5 - 36.0 g/dL [facility] MCV (RBC) [Entitic vol] 85.3 fL 80.0 - 100.0 fL [facility] Nucleated RBC (Bld) [#/Vol] NINF [facility] Platelet mean volume (Bld) [Entitic vol] 10.7 fL 9.0 - 12.7 fL [facility] Platelets (Bld) [#/Vol] 300 10*3/uL [facility] RBC (Bld) [#/Vol] 4.01 10*6/uL 3.90 - 5.2 0 m/uL [facility] WBC (Bld) [#/Vol] 5.52 10*3/uL [facility] Erythrocyte distribution width (RBC) [Ratio] 15.8 % High 11.5-15.0 [facility] Comment on above: Order Comment: Speci men Type: BLOOD SPECIMEN Ordering Facility: [facility] Address: [address] [place] [address] Performed By: #### 2 4362-6 #### [facility] CLIA [id number] [address] [place] [address] [place] Hematocrit (Bld) [Volume fraction] 34.2 % Low 36.0-46.0 [facility] Comment on above: Order Comment: Speci men Type: BLOOD SPECIMEN Ordering Facility: [facility] Address: [address] [place] [address] Performed By: #### 2 4362-6 #### [facility] CLIA [id number] [address] [place] [address] [place] Hemoglobin (Bld) [Mass/Vol] 10.6 g/dL Low 11.5-15.5 [facility] Comment on above: Order Comment: Speci men Type: BLOOD SPECIMEN Ordering Facility: [facility] Address: [address] [place] [address] Performed By: #### 2 4362-6 #### [facility] CLIA [id number] [address] [place] [address] [place] MCH (RBC) [Entitic mass] 26.4 pg Normal 26.0-34.0 [facility] Comment on above: Order Comment: Speci men Type: BLOOD SPECIMEN Ordering Facility: [facility] Address: [address] [place] [address] Performed By: #### 2 4362-6 #### [facility] CLIA [id number] [address] [place] [address] [place] MCHC (RBC) [Mass/Vol] 31.0 g/dL Normal 30.5-36.0 [facility] Comment on above: Order Comment: Speci men Type: BLOOD SPECIMEN Ordering Facility: [facility] Address: [address] [place] [address] Performed By: #### 2 4362-6 #### [facility] CLIA [id number] [address] [place] [address] [place] MCV (RBC) [Entitic vol] 85.3 fL Normal 80.0-100.0 [facility] Comment on above: Order Comment: Speci men Type: BLOOD SPECIMEN Ordering Facility: [facility] Address: [address] [place] [address] Performed By: #### 2 4362-6 #### [facility] CLIA [id number] [address] [place] [address] [place] Nucleated RBC (Bld) [#/Vol] 10*3/uL Normal <0.01 [facility] Comment on above: Order Comment: Speci men Type: BLOOD SPECIMEN Ordering Facility: [facility] Address: [address] [place] [address] Performed By: #### 2 4362-6 #### [facility] CLIA [id number] [address] [place] [address] [place] Platelet mean volume (Bld) [Entitic vol] 10.7 fL Normal 9.0-12.7 [facility] Comment on above: Order Comment: Speci men Type: BLOOD SPECIMEN Ordering Facility: [facility] Address: [address] [place] [address] Performed By: #### 2 4362-6 #### [facility] CLIA [id number] [address] [place] [address] [place] Platelets (Bld) [#/Vol] 300 10*3/uL Normal 150-400 [facility] Comment on above: Order Comment: Speci men Type: BLOOD SPECIMEN Ordering Facility: [facility] Address: [address] [place] [address] Performed By: #### 2 4362-6 #### [facility] CLIA [id number] [address] [place] [address] [place] RBC (Bld) [#/Vol] 4.01 10*6/uL Normal 3.90-5.20 [facility] Comment on above: Order Comment: Speci men Type: BLOOD SPECIMEN Ordering Facility: [facility] Address: [address] [place] [address] Performed By: #### 2 4362-6 #### [facility] CLIA [id number] [address] [place] [address] [place] WBC (Bld) [#/Vol] 5.52 10*3/uL Normal 3.70-11.00 [facility] Comment on above: Order Comment: Speci men Type: BLOOD SPECIMEN Ordering Facility: [facility] Address: [address] [place] [address] Performed By: #### 2 4362-6 #### [facility] CLIA [id number] [address] [place] [address] [place] Basic metabolic 2000 panelon 06-19-2024 Anion gap [Moles/Vol] 10 mmol/L Normal 8-15 [facility] Comment on above: Order Comment: Speci men Type: BLOOD SPECIMEN Ordering Facility: [facility] Address: [address] [place] [address] Performed By: #### 2 4321-2, 48135-4, 34816-4 #### [facility] CLIA [id number] [address] [place] [address] [place] Calcium [Mass/Vol] 8.9 mg/dL Normal 8.5-10.2 [facility] Comment on above: Order Comment: Speci men Type: BLOOD SPECIMEN Ordering Facility: [facility] Address: [address] [place] [address] Performed By: #### 2 4321-2, 43194-0, 64503-0 #### [facility] CLIA [id number] [address] [place] [address] [place] Chloride [Moles/Vol] 109 mmol/L High 98-107 [facility] Comment on above: Order Comment: Speci men Type: BLOOD SPECIMEN Ordering Facility: [facility] Address: [address] [id number] Performed By: #### 2 4321-2, 23647-6, #### [facility] CLIA [id number] [address] [place] [address] [place] CO2 [Moles/Vol] 21 mmol/L Low 22-30 [facility] Comment on above: Order Comment: Speci men Type: BLOOD SPECIMEN Ordering Facility: [facility] Address: [address] [place] [address] Performed By: #### 2 4321-2, 10485-6, #### [facility] CLIA [id number] [address] STATES OF [facility] Creatinine [Mass/Vol] 1.04 mg/dL High 0.58-0.96 [facility] Comment on above: Order Comment: Speci men Type: BLOOD SPECIMEN Ordering Facility: [facility] Address: [address] [place] [address] Performed By: #### 2 4321-2, 64634-1, #### [facility] CLIA [id number] [address] Creatinine and Glomerular filtration rate.predicted panel (S/P/Bld) 53 mL/min/1.73m??? Low >=60 [facility] Comment on above: Order Comment: Speci men Type: BLOOD SPECIMEN Ordering Facility: [facility] Address: [address] [place] [address] Result Comment: Isa mated Glomerular Filtration Rate [...] actual GFR. Performed By: #### 2 4321-2, 97666-7, #### [facility] CLIA [id number] [address] [place] Glucose [Mass/Vol] 103 mg/dL High 74-99 [facility] Comment on above: Order Comment: Speci men Type: BLOOD SPECIMEN Ordering Facility: [facility] Address: [address] [place] [address] Result Comment: The [place] Diabetes Association (ADA) provides guidance for cutoff [...] Standards of Medical Care in Diabetes 2016, [place] Diabetes Association. Diabetes Care. 2016.39(Suppl 1). Performed By: #### 2 4321-2, 49585-8, #### [facility] CLIA [id number] [address] [place] [address] [place] Potassium [Moles/Vol] 4.8 mmol/L Normal 3.7-5.1 [facility] Comment on above: Order Comment: Rhina mason Type: BLOOD SPECIMEN Ordering Facility: [facility] Address: [address] [place] [address] Performed By: #### 2 4321-2, 21545-0, #### [facility] CLIA [id number] [address] [place] [address] [place] Sodium [Moles/Vol] 140 mmol/L Normal 136-144 [facility] Comment on above: Order Comment: Rhina men Type: BLOOD SPECIMEN Ordering Facility: [facility] Address: [address] [place] [address] Performed By: #### 2 4321-2, 54372-3, #### [facility] CLIA [id number] [address] [place] [address] [place] Urea nitrogen [Mass/Vol] 25 mg/dL High 7-21 [facility] Comment on above: Order Comment: Speci men Type: BLOOD SPECIMEN Ordering Facility: [facility] Address: [address] [place] [address] Performed By: #### 2 4321-2, 07541-8, #### [facility] CLIA [id number] [address] [place] CBC panel Auto (Bld)on 06-19 Erythrocyte distribution width (RBC) [Ratio] 15.9 % High 11.5-15.0 [facility] Comment on above: Order Comment: Speci men Type: BLOOD SPECIMEN Ordering Facility: [facility] Address: [address] [place] [address] Performed By: #### 2 4321-2, 41651-3, #### [facility] CLIA [id number] [address] STATES OF [facility] Hematocrit (Bld) [Volume fraction] 30.6 % Low 36.0-46.0 [facility] Comment on above: Order Comment: Speci men Type: BLOOD SPECIMEN Ordering Facility: [facility] Address: [address] [place] [address] Performed By: #### 2 1-2, 51564-5, #### [facility] CLIA [id number] [address] [place] Hemoglobin (Bld) [Mass/Vol] 9.5 g/dL Low 11.5-15.5 [facility] Comment on above: Order Comment: Speci men Type: BLOOD SPECIMEN Ordering Facility: [facility] Address: [address] [place] [address] Performed By: #### 2 1-2, 70991-9, #### [facility] CLIA [id number] [address] [place] MCH (RBC) [Entitic mass] 26.5 pg Normal 26.0-34.0 [facility] Comment on above: Order Comment: Speci men Type: BLOOD SPECIMEN Ordering Facility: [facility] Address: [address] [place] [address] Performed By: #### 2 4321-2, 87818-2, #### [facility] CLIA [id number] [address] MCHC (RBC) [Mass/Vol] 31.0 g/dL Normal 30.5-36.0 [facility] Comment on above: Order Comment: Speci men Type: BLOOD SPECIMEN Ordering Facility: [facility] Address: [address] [place] [address] Performed By: #### 2 4321-2, 29872-5, #### [facility] CLIA [id number] [address] OF [facility] MCV (RBC) [Entitic vol] 85.5 fL Normal 80.0-100.0 [facility] Comment on above: Order Comment: Speci men Type: BLOOD SPECIMEN Ordering Facility: [facility] Address: [address] [place] [address] Performed By: #### 2 1-2, 38572-7, #### [facility] CLIA [id number] [address] Nucleated RBC (Bld) [#/Vol] 10*3/uL Normal <0.01 [facility] Comment on above: Order Comment: Speci men Type: BLOOD SPECIMEN Ordering Facility: [facility] Address: [address] [place] [address] Performed By: #### 2 4321-2, 77379-0, #### [facility] CLIA [id number] [address] Platelet mean volume (Bld) [Entitic vol] 10.4 fL Normal 9.0-12.7 [facility] Comment on above: Order Comment: Speci men Type: BLOOD SPECIMEN Ordering Facility: [facility] Address: [address] [place] [address] Performed By: #### 2 4321-2, 15433-5, 52243-1 #### [facility] CLIA [id number] [address] [place] Platelets (Bld) [#/Vol] 245 10*3/uL Normal 150-400 [facility] Comment on above: Order Comment: Speci men Type: BLOOD SPECIMEN Ordering Facility: [facility] Address: [address] [place] [address] Performed By: #### 2 4321-2, 73762-3, #### [facility] CLIA [id number] [address] [place] RBC (Bld) [#/Vol] 3.58 10*6/uL Low 3.90-5.20 [facility] Comment on above: Order Comment: Speci men Type: BLOOD SPECIMEN Ordering Facility: [facility] Address: [address] [place] [address] Performed By: #### 2 4321-2, 68188-5, #### [facility] CLIA [id number] [address] OF [facility] WBC (Bld) [#/Vol] 4.67 10*3/uL Normal 3.70-11.00 [facility] Comment on above: Order Comment: Speci men Type: BLOOD SPECIMEN Ordering Facility: [facility] Address: [address] [place] [address] Performed By: #### 2 4321-2, 93546-5, 65246-0 #### [facility] CLIA [id number] [address] [place] CNDSon 06-19-2024 [facility] HNO ID: [id number] Author: DON EDWRADS DO Service: Hospital Medicine Author Type: Physician [...] Medical Team Members: Treatment Team: Attending Provider: oDn Edwards DO Consulting: Pratibha Logan MD Consulting: [...] eliquis. She was seen by therapy and senior care facility was recommended. He slowly was improving. She was discharged to senior care facility in stable condition. OTHER PROBLEMS/DIAGNOSIS: Principal [...] call for appointment?: Yes Jared Evans MD [phone] [facility] [address] PCP Requested Referral Follow-Up Appointment When: In 2 weeks Patient/Parents to call for appointment?: Yes Hermila Padilla MD [phone] [facility] [address] PCP Requested Referral Follow-Up Appointment For hydronephrosis and renal lesion When: In 2 weeks Patient/Parents to call for appointment?: Yes Mikhail Vuong Jr., MD [phone] [facility] [address] PCP Requested Referral Follow-Up Appointment With: neurology When: In 4 weeks Patient/Parents to call for appointment?: Yes Additional Provider to Provider Information: Treatment Team: Attending Provider: Don Ewdards DO Consulting: Pratibha Logan MD Consulting: Torsten Otoole MD Primary Service: [place] [facility] Critical Issues: SPECIALIST FOLLOW-UP: urology, cardiology, neurology LABS AND PROCEDURES PENDING AT DISCHARGE: No pending results. FOLLOW-UP APPOINTMENTS ALREADY SCHEDULED WITH A [facility] PROVIDER: No future appointments. Discharge Information Row Name ED to Hosp-Admission (Current) from 06/10/2024 in [place] NEURO/CARD Rehab Facility Agency [facility] ALLERGIES Allergen Reactions Percocet [Oxycodone* Itching DISCHARGE MEDICA (more content not included)... Normal [facility] Basic metabolic 2000 panelon 06-18-2024 Anion gap [Moles/Vol] 10 mmol/L Normal 8-15 [facility] Comment on above: Order Comment: Speci men Type: BLOOD SPECIMEN Ordering Facility: [facility] Address: [address] [place] [address] [place] [address] Performed By: #### 2 4321-2, 72665-7, #### [facility] CLIA [id number] [address] [place] [address] [place] Calcium [Mass/Vol] 8.9 mg/dL Normal 8.5-10.2 [facility] Comment on above: Order Comment: Speci men Type: BLOOD SPECIMEN Ordering Facility: [facility] Address: [address] [place] [address] Performed By: #### 2 4321-2, 76862-1, #### [facility] CLIA [id number] [address] [place] [address] [place] Chloride [Moles/Vol] 110 mmol/L High 98-107 [facility] Comment on above: Order Comment: Speci men Type: BLOOD SPECIMEN Ordering Facility: [facility] Address: [address] [place] [address] Performed By: #### 2 4321-2, 79738-3, #### [facility] CLIA [id number] [address] [place] [address] [place] CO2 [Moles/Vol] 21 mmol/L Low 22-30 [facility] Comment on above: Order Comment: Speci men Type: BLOOD SPECIMEN Ordering Facility: [facility] Address: [address] [place] [address] Performed By: #### 2 4321-2, 68572-8, #### [facility] CLIA [id number] [address] [place] [address] [place] Creatinine [Mass/Vol] 0.96 mg/dL Normal 0.58-0.96 [facility] Comment on above: Order Comment: Speci men Type: BLOOD SPECIMEN Ordering Facility: [facility] Address: [address] [place] [address] Performed By: #### 2 4321-2, 36056-7, #### [facility] CLIA [id number] [address] [place] [address] [place] Creatinine and Glomerular filtration rate.predicted panel (S/P/Bld) 58 mL/min/1.73m??? Low >=60 [facility] Comment on above: Order Comment: Rhina mason Type: BLOOD SPECIMEN Ordering Facility: [facility] Address: [address] [place] [address] Result Comment: Isa mated Glomerular Filtration Rate [...] actual GFR. Performed By: #### 2 4321-2, 42119-7, #### [facility] CLIA [id number] [address] [place] [address] [place] Glucose [Mass/Vol] 112 mg/dL High 74-99 [facility] Comment on above: Order Comment: Rhina mason Type: BLOOD SPECIMEN Ordering Facility: [facility] Address: [address] [place] [address] Result Comment: The [place] Diabetes Association (ADA) provides guidance for cutoff [...] Standards of Medical Care in Diabetes 2016, [place] Diabetes Association. Diabetes Care. 2016.39(Suppl 1). Performed By: #### 2 4321-2, 85564-0, #### [facility] CLIA [id number] [address] [place] [address] [place] Potassium [Moles/Vol] 4.4 mmol/L Normal 3.7-5.1 [facility] Comment on above: Order Comment: Speci men Type: BLOOD SPECIMEN Ordering Facility: [facility] Address: [address] [place] [address] Performed By: #### 2 4321-2, 58702-2, #### [facility] CLIA [id number] [address] OF [facility] Sodium [Moles/Vol] 141 mmol/L Normal 136-144 [facility] Comment on above: Order Comment: Speci men Type: BLOOD SPECIMEN Ordering Facility: [facility] Address: [address] [place] [address] Performed By: #### 2 4321-2, 83128-5, #### [facility] CLIA [id number] [address] [place] Urea nitrogen [Mass/Vol] 22 mg/dL High 7-21 [facility] Comment on above: Order Comment: Speci men Type: BLOOD SPECIMEN Ordering Facility: [facility] Address: [address] [place] [address] Performed By: #### 2 4321-2, 09767-9, #### [facility] CLIA [id number] [address] [place] CBC panel Auto (Bld)on 06-18 Erythrocyte distribution width (RBC) [Ratio] 15.9 % High 11.5-15.0 [facility] Comment on above: Order Comment: Speci men Type: BLOOD SPECIMENOrdering Facility: [facility] Address: [address] [place] [address] Performed By: #### 5 8410-2 ####[facility] [id number] [place] [address] OF [facility] Hematocrit (Bld) [Volume fraction] 34.3 % Low 36.0-46.0 [facility] Comment on above: Order Comment: Speci men Type: BLOOD SPECIMENOrdering Facility: [facility] Address: [address] [place] [address] Performed By: #### 5 8410-2 ####[facility]ORY[facility]IA [id number] [address] STATES OF [facility] Hemoglobin (Bld) [Mass/Vol] 10.7 g/dL Low 11.5-15.5 [facility] Comment on above: Order Comment: Speci men Type: BLOOD SPECIMENOrdering Facility: [facility] Address: [address] [place] [address] Performed By: #### 5 8410-2 ####[facility]ORY[facility]IA [id number] [address] MCH (RBC) [Entitic mass] 26.7 pg Normal 26.0-34.0 [facility] Comment on above: Order Comment: Speci men Type: BLOOD SPECIMENOrdering Facility: [facility] Address: [address] [place] [address] Performed By: #### 5 8410-2 ####[facility]ORYCLIA [id number] [address] MCHC (RBC) [Mass/Vol] 31.2 g/dL Normal 30.5-36.0 [facility] Comment on above: Order Comment: Speci men Type: BLOOD SPECIMENOrdering Facility: [facility] Address: [address] [place] [address] Performed By: #### 5 8410-2 ####[facility]ORYCLIA [id number] [address] [place] MCV (RBC) [Entitic vol] 85.5 fL Normal 80.0-100.0 [facility] Comment on above: Order Comment: Speci men Type: BLOOD SPECIMENOrdering Facility: [facility] Address: [address] [place] [address] Performed By: #### 5 8410-2 ####[facility]ORYCLIA [id number] [address] Nucleated RBC (Bld) [#/Vol] 10*3/uL Normal <0.01 [facility] Comment on above: Order Comment: Speci men Type: BLOOD SPECIMENOrdering Facility: [facility] Address: [address] [place] [address] Performed By: #### 5 8410-2 ####[facility]ORYCLIA [id number] [address] [place] Platelet mean volume (Bld) [Entitic vol] 10.0 fL Normal 9.0-12.7 [facility] Comment on above: Order Comment: Speci men Type: BLOOD SPECIMENOrdering Facility: [facility] Address: [address] [place] [address] Performed By: #### 5 8410-2 ####[facility]ORYCLIA [id number] [address] [place] Platelets (Bld) [#/Vol] 273 10*3/uL Normal 150-400 [facility] Comment on above: Order Comment: Speci men Type: BLOOD SPECIMENOrdering Facility: [facility] Address: [address] [place] [address] Performed By: #### 5 8410-2 ####[facility]ATORYCLIA [id number] [place] [address] [place] RBC (Bld) [#/Vol] 4.01 10*6/uL Normal 3.90-5.20 [facility] Comment on above: Order Comment: Speci men Type: BLOOD SPECIMENOrdering Facility: [facility] Address: [address] [place] [address] Performed By: #### 5 8410-2 ####[facility]ATORYCLIA [id number] [place] [address] [place] WBC (Bld) [#/Vol] 5.29 10*3/uL Normal 3.70-11.00 [facility] Comment on above: Order Comment: Speci men Type: BLOOD SPECIMENOrdering Facility: [facility] Address: [address] [place] [address] Performed By: #### 5 8410-2 ####[facility]ORYCLIA [id number] [address] Hepatic function 2000 panelo n 06-18-2024 Albumin [Mass/Vol] 3.5 g/dL Low 3.9-4.9 [facility] Comment on above: Order Comment: Speci men Type: BLOOD SPECIMEN Ordering Facility: [facility] Address: [address] [place] [address] Performed By: #### 2 4321-2, 77803-5, #### [facility] CLIA [id number] [address] OF [facility] ALP [Catalytic activity/Vol] 80 U/L Normal 34-123 [facility] Comment on above: Order Comment: Speci men Type: BLOOD SPECIMEN Ordering Facility: [facility] Address: [address] [place] [address] Performed By: #### 2 4321-2, 35825-5, #### [facility] CLIA [id number] [address] ALT With P-5'-P [Catalytic activity/Vol] 16 U/L Normal 7-38 [facility] Comment on above: Order Comment: Speci men Type: BLOOD SPECIMEN Ordering Facility: [facility] Address: [address] [place] [address] Performed By: #### 2 4321-2, 13730-7, #### [facility] CLIA [id number] [address] OF [facility] AST With P-5'-P [Catalytic activity/Vol] 20 U/L Normal 13-35 [facility] Comment on above: Order Comment: Speci men Type: BLOOD SPECIMEN Ordering Facility: [facility] Address: [address] [place] [address] Performed By: #### 2 4321-2, 41707-7, #### [facility] CLIA [id number] [address] [place] Bilirubin [Mass/Vol] 0.3 mg/dL Normal 0.2-1.3 [facility] Comment on above: Order Comment: Speci men Type: BLOOD SPECIMEN Ordering Facility: [facility] Address: [address] [place] [address] Performed By: #### 2 4321-2, 48514-9, #### [facility] CLIA [id number] [address] [place] [address] [place] Bilirubin.conjugated [Mass/Vol] mg/dL Normal <0.2 [facility] Comment on above: Order Comment: Speci men Type: BLOOD SPECIMEN Ordering Facility: [facility] Address: [address] [place] [address] Performed By: #### 2 4321-2, 66714-5, #### [facility] CLIA [id number] [address] Protein [Mass/Vol] 6.0 g/dL Low 6.3-8.0 [facility] Comment on above: Order Comment: Speci men Type: BLOOD SPECIMEN Ordering Facility: [facility] Address: [address] [place] [address] Performed By: #### 2 4321-2, 80700-7, #### [facility] CLIA [id number] [address] [place] Magnesium SerPl-mCncon 06-18 Magnesium [Mass/Vol] 1.9 mg/dL Normal 1.7-2.3 [facility] Comment on above: Order Comment: Speci men Type: BLOOD SPECIMEN Ordering Facility: [facility] Address: [address] [place] [address] Performed By: #### 2 4321-2, 74551-5, #### [facility] CLIA [id number] [address] [place] NUTRITIONon 06-18-2024 NUTRITION HNO ID: [id number] Author: NELSON [address]IL[address] Service: Nutrition Therapy [...] Obtained From: Patient 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; 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) MNT Billing: $ Initial Assessment: 1-15 minutes SIGNATURE: Nelson Avila RD PATIENT NAME: Mel Castillo DATE: June 18, 2024 TIME: 11:18 AM Normal [facility] THERAPY NTon 06-18-2024 THERAPY NT HNO ID: [id number] Author: SELENA BARR, PT Service: Physical Therapy Author Type: Physical Therapist Type: Therapy (PT/OT/Speech/Resp) Filed: 06/18/2024 12:53 Note Text: Physical Therapy Treatment Summary SERVICE DATE: 06/18/2024 SERVICE TIME: 1056 to 1129 ROOM: [id number] PT 6 Clicks Score: 16 DISCHARGE RECOMMENDATIONS [...] Lack of coordination-other TREATMENT INTERVENTIONS Therapeutic Activity (06042) Therapeutic Activity (08790) Treatment Minutes: 25 $ Therapeutic Activity (30390) Billed Units: 2 units Timed Code Treatment [...] Balance, Non-func (more content not included)... Normal [facility] THERAPY NT HNO ID: [id number] Author: ULI JEFFERSON OTR/[place] Service: Occupational Therapy Author Type: Occupational Therapist Type: Therapy (PT/OT/Speech/Resp) Filed: 06/18/2024 13:34 Note Text: Occupational Therapy Treatment Summary SERVICE DATE: 06/18/2024 SERVICE TIME: 1130 to 1154 ROOM: [id number] OT 6 Clicks Score: 15 DISCHARGE RECOMMENDATIONS [...] General symptoms and signs-other TREATMENT INTERVENTIONS Self Half-Way Management (59820), Cognitive Training (61706 and 24364) Timed Code Treatment (minutes): 24 Skilled Treatment Time (minutes): 24 Self Half-Way Management (94039) Treatment Minutes: 11 $ Self Half-Way Management (45998) Billed Units: 1 unit Minimal assist with meal set-up. Cueing for physical assist with maintaining functional grasp on packaging to tear open. Pt demonstrated impaired hand-eye coordination/visual spatial awareness with bringing food to mouth. Provided further cueing and tactile awareness/sequencing to maximize ease with self feeding. Cognitive Training First 15 Minutes (56025) : 13 $ Cognitive Training First 15 Minutes (52301) Billed Units: 1 unit Facilitated completion of [facility] Mental Examination (UMS) to screen performance [...] Occupational Therapy, Safety/Judgment, Sitting Balance to Improve [place] with ADLs/Self-Care, Cognitive Skills, Command Following, Expected Functional Level, Feeding Tasks, Low Vision Strategies, Positioning, Visual Scanning/Attention Activities THERAPEUTIC SKILLS USED Activity Dosing, Cues for (more content not included)... Normal [facility] CBC panel Auto (Bld)on 06-17 Erythrocyte distribution width (RBC) [Ratio] 15.7 % High 11.5-15.0 [facility] Comment on above: Order Comment: Rhina mason Type: BLOOD SPECIMEN Ordering Facility: [facility] Address: [address] [place] [address] Performed By: #### 2 4321-2, 90893-0, #### [employer] [facility] CLIA [id number] [address] [place] [address] [place] Hematocrit (Bld) [Volume fraction] 35.1 % Low 36.0-46.0 [facility] Comment on above: Order Comment: Rhina mason Type: BLOOD SPECIMEN Ordering Facility: [facility] Address: [address] [place] [address] Performed By: #### 2 4321-2, 60434-6, #### [employer] [facility] CLIA [id number] [address] Hemoglobin (Bld) [Mass/Vol] 11.0 g/dL Low 11.5-15.5 [facility] Comment on above: Order Comment: Speci men Type: BLOOD SPECIMEN Ordering Facility: [facility] Address: [address] [place] [address] Performed By: #### 2 4321-2, 91849-1, #### [facility] CLIA [id number] [address] MCH (RBC) [Entitic mass] 26.4 pg Normal 26.0-34.0 [facility] Comment on above: Order Comment: Speci men Type: BLOOD SPECIMEN Ordering Facility: [facility] Address: [address] [place] [address] Performed By: #### 2 4321-2, 09945-3, #### [facility] CLIA [id number] [address] MCHC (RBC) [Mass/Vol] 31.3 g/dL Normal 30.5-36.0 [facility] Comment on above: Order Comment: Speci men Type: BLOOD SPECIMEN Ordering Facility: [facility] Address: [address] [place] [address] Performed By: #### 2 4321-2, 38983-7, #### [facility] CLIA [id number] [address] MCV (RBC) [Entitic vol] 84.4 fL Normal 80.0-100.0 [facility] Comment on above: Order Comment: Speci men Type: BLOOD SPECIMEN Ordering Facility: [facility] Address: [address] [place] [address] Performed By: #### 2 4321-2, 06117-2, #### [facility] CLIA [id number] [address] Nucleated RBC (Bld) [#/Vol] 10*3/uL Normal <0.01 [facility] Comment on above: Order Comment: Speci men Type: BLOOD SPECIMEN Ordering Facility: [facility] Address: [address] [place] [address] Performed By: #### 2 4321-2, 76256-4, #### [facility] CLIA [id number] [address] STATES [place] [facility] Platelet mean volume (Bld) [Entitic vol] 10.1 fL Normal 9.0-12.7 [facility] Comment on above: Order Comment: Speci men Type: BLOOD SPECIMEN Ordering Facility: [facility] Address: [address] [place] [address] Performed By: #### 2 4321-2, 17201-1, #### [facility] CLIA [id number] [address] [place] Platelets (Bld) [#/Vol] 294 10*3/uL Normal 150-400 [facility] Comment on above: Order Comment: Speci men Type: BLOOD SPECIMEN Ordering Facility: [facility] Address: [address] [place] [address] Performed By: #### 2 4321-2, 97758-4, #### [facility] CLIA [id number] [address] [place] RBC (Bld) [#/Vol] 4.16 10*6/uL Normal 3.90-5.20 [facility] Comment on above: Order Comment: Speci men Type: BLOOD SPECIMEN Ordering Facility: [facility] Address: [address] [place] [address] Performed By: #### 2 4321-2, 63143-2, #### [facility] CLIA [id number] [address] [place] WBC (Bld) [#/Vol] 5.63 10*3/uL Normal 3.70-11.00 [facility] Comment on above: Order Comment: Speci men Type: BLOOD SPECIMEN Ordering Facility: [facility] Address: [address] [place] [address] Performed By: #### 2 4321-2, 02205-7, #### [facility] CLIA [id number] [address] CBC panel Auto (Bld)on 06-16 Erythrocyte distribution width (RBC) [Ratio] 15.4 % High 11.5-15.0 [facility] Comment on above: Order Comment: Speci men Type: BLOOD SPECIMEN Ordering Facility: [facility] Address: [address] [place] [address] Performed By: #### 2 4321-2, 03337-6, #### [employer] [facility] CLIA [id number] [address] [place] [facility] Hematocrit (Bld) [Volume fraction] 34.9 % Low 36.0-46.0 [facility] Comment on above: Order Comment: Speci men Type: BLOOD SPECIMEN Ordering Facility: [facility] Address: [address] [place] [address] Performed By: #### 2 4321-2, 50150-8, #### [facility] CLIA [id number] [address] [place] Hemoglobin (Bld) [Mass/Vol] 10.9 g/dL Low 11.5-15.5 [facility] Comment on above: Order Comment: Speci men Type: BLOOD SPECIMEN Ordering Facility: [facility] Address: [address] [place] [address] Performed By: #### 2 4321-2, 16307-4, #### [facility] CLIA [id number] [address] MCH (RBC) [Entitic mass] 26.4 pg Normal 26.0-34.0 [facility] Comment on above: Order Comment: Speci men Type: BLOOD SPECIMEN Ordering Facility: [facility] Address: [address], [place] [address] Performed By: #### 2 4321-2, 24981-0, #### [facility] CLIA [id number] [address] MCHC (RBC) [Mass/Vol] 31.2 g/dL Normal 30.5-36.0 [facility] Comment on above: Order Comment: Speci men Type: BLOOD SPECIMEN Ordering Facility: [facility] Address: [address] [place] [address] Performed By: #### 2 4321-2, 02544-6, #### [facility] CLIA [id number] [address] MCV (RBC) [Entitic vol] 84.5 fL Normal 80.0-100.0 [facility] Comment on above: Order Comment: Speci men Type: BLOOD SPECIMEN Ordering Facility: [facility] Address: [address] [place] [address] Performed By: #### 2 4321-2, 35817-2, #### [facility] CLIA [id number] [address] Nucleated RBC (Bld) [#/Vol] 10*3/uL Normal <0.01 [facility] Comment on above: Order Comment: Speci men Type: BLOOD SPECIMEN Ordering Facility: [facility] Address: [address] [place] [address] Performed By: #### 2 4321-2, 26073-7, #### [facility] CLIA [id number] [address] Platelet mean volume (Bld) [Entitic vol] 9.8 fL Normal 9.0-12.7 [facility] Comment on above: Order Comment: Speci men Type: BLOOD SPECIMEN Ordering Facility: [facility] Address: [address] [place] [address] Performed By: #### 2 4321-2, 51005-1, #### [facility] CLIA [id number] [address] OF [facility] Platelets (Bld) [#/Vol] 274 10*3/uL Normal 150-400 [facility] Comment on above: Order Comment: Speci men Type: BLOOD SPECIMEN Ordering Facility: [facility] Address: [address] [place] [address] Performed By: #### 2 4321-2, 23976-8, 05953-8 #### [facility] CLIA [id number] [address] RBC (Bld) [#/Vol] 4.13 10*6/uL Normal 3.90-5.20 [facility] Comment on above: Order Comment: Speci men Type: BLOOD SPECIMEN Ordering Facility: [facility] Address: [address] [place] [address] Performed By: #### 2 4321-2, 25384-8, #### [facility] CLIA [id number] [address] WBC (Bld) [#/Vol] 6.06 10*3/uL Normal 3.70-11.00 [facility] Comment on above: Order Comment: Speci men Type: BLOOD SPECIMEN Ordering Facility: [facility] Address: [address] [place] [address] Performed By: #### 2 4321-2, 90589-6, #### [facility] CLIA [id number] [address] OF [facility] CBC panel Auto (Bld)on 06-15 Erythrocyte distribution width (RBC) [Ratio] 15.4 % High 11.5-15.0 [facility] Comment on above: Order Comment: Speci men Type: BLOOD SPECIMEN Ordering Facility: [facility] Address: [address] [place] [address] Performed By: #### 2 4321-2, 07511-5, 50810-7 #### [facility] CLIA [id number] [address] [place] [address] [place] Hematocrit (Bld) [Volume fraction] 33.9 % Low 36.0-46.0 [facility] Comment on above: Order Comment: Speci men Type: BLOOD SPECIMEN Ordering Facility: [facility] Address: [address] [place] [address] Performed By: #### 2 4321-2, 27626-8, #### [facility] CLIA [id number] [address] [place] Hemoglobin (Bld) [Mass/Vol] 10.6 g/dL Low 11.5-15.5 [facility] Comment on above: Order Comment: Speci men Type: BLOOD SPECIMEN Ordering Facility: [facility] Address: [address] [place] [address] Performed By: #### 2 4321-2, 47311-0, #### [facility] CLIA [id number] [address] MCH (RBC) [Entitic mass] 26.2 pg Normal 26.0-34.0 [facility] Comment on above: Order Comment: Speci men Type: BLOOD SPECIMEN Ordering Facility: [facility] Address: [address] [place] [address] Performed By: #### 2 4321-2, 67250-3, #### [facility] CLIA [id number] [address] [place] MCHC (RBC) [Mass/Vol] 31.3 g/dL Normal 30.5-36.0 [facility] Comment on above: Order Comment: Speci men Type: BLOOD SPECIMEN Ordering Facility: [facility] Address: [address] [place] [address] Performed By: #### 2 4321-2, 71402-7, #### [facility] CLIA [id number] [address] OF [facility] MCV (RBC) [Entitic vol] 83.9 fL Normal 80.0-100.0 [facility] Comment on above: Order Comment: Speci men Type: BLOOD SPECIMEN Ordering Facility: [facility] Address: [address] [place] [address] Performed By: #### 2 4321-2, 34900-2, #### [facility] CLIA [id number] [address] [place] [address] [place] Nucleated RBC (Bld) [#/Vol] 10*3/uL Normal <0.01 [facility] Comment on above: Order Comment: Speci men Type: BLOOD SPECIMEN Ordering Facility: [facility] Address: [address] [place] [address] Performed By: #### 2 4321-2, 10489-6, #### [facility] CLIA [id number] [address] [place] Platelet mean volume (Bld) [Entitic vol] 9.9 fL Normal 9.0-12.7 [facility] Comment on above: Order Comment: Speci men Type: BLOOD SPECIMEN Ordering Facility: [facility] Address: [address] [place] [address] Performed By: #### 2 4321-2, 93574-2, #### [facility] CLIA [id number] [address] [place] Platelets (Bld) [#/Vol] 280 10*3/uL Normal 150-400 [facility] Comment on above: Order Comment: Speci men Type: BLOOD SPECIMEN Ordering Facility: [facility] Address: [address] [place] [address] Performed By: #### 2 4321-2, 37498-9, #### [facility] CLIA [id number] [address] [place] [address] [place] RBC (Bld) [#/Vol] 4.04 10*6/uL Normal 3.90-5.20 [facility] Comment on above: Order Comment: Speci men Type: BLOOD SPECIMEN Ordering Facility: [facility] Address: [address] [place] [address] Performed By: #### 2 4321-2, 62122-1, #### [facility] CLIA [id number] 1 [place] [address] [place] WBC (Bld) [#/Vol] 5.80 10*3/uL Normal 3.70-11.00 [facility] Comment on above: Order Comment: Speci men Type: BLOOD SPECIMEN Ordering Facility: [facility] Address: [facility] [place] [address] Performed By: #### 2 4321-2, 31472-6, #### [facility] CLIA [id number] 1 [place] [address] [facility] [place] THERAPY NTon 06-15-2024 THERAPY NT HNO ID: [id number] Author: MEHREEN MANCERA PT Service: Physical Therapy Author Type: Physical Therapist Type: Therapy (PT/OT/Speech/Resp) Filed: 06/15/2024 16:13 Note Text: Physical Therapy Treatment Summary SERVICE DATE: 06/15/2024 SERVICE TIME: 1518 to 1547 ROOM: [place] [address] PT 6 Clicks Score: 13 DISCHARGE RECOMMENDATIONS [...] Lack of coordination-other TREATMENT INTERVENTIONS Therapeutic Activity (88169), Neuromuscular Reeducation (78688) Timed Code Treatment (minutes): 29 Skilled Treatment Time (minutes): 29 Therapeutic Activity (27346) Treatment Minutes: 10 $ Therapeutic Activity (13611) Billed Units: 1 unit Neuromuscular Reeducation (75855) Treatment Minutes: 19 $ Neuromuscular Reeducation (49107) Billed Units: 1 unit Sitting balance and [...] to control (more content not included)... Normal [facility] CBC panel Auto (Bld)on 06-14 Erythrocyte distribution width (RBC) [Ratio] 15.5 % High 11.5-15.0 [facility] Comment on above: Order Comment: Speci men Type: BLOOD SPECIMENOrdering Facility: [facility] Address: [address] [place] [address] Performed By: #### 5 8410-2 ####[facility] [id number] [place] [address] [place] Hematocrit (Bld) [Volume fraction] 34.8 % Low 36.0-46.0 [facility] Comment on above: Order Comment: Speci men Type: BLOOD SPECIMENOrdering Facility: [facility] Address: [address] [place] [address] Performed By: #### 5 8410-2 ####[facility] [id number] [place] [address] [place] Hemoglobin (Bld) [Mass/Vol] 11.0 g/dL Low 11.5-15.5 [facility] Comment on above: Order Comment: Speci men Type: BLOOD SPECIMENOrdering Facility: [facility] Address: [address] [place] [address] Performed By: #### 5 8410-2 ####[facility] [id number] [address] MCH (RBC) [Entitic mass] 26.6 pg Normal 26.0-34.0 [facility] Comment on above: Order Comment: Speci men Type: BLOOD SPECIMENOrdering Facility: [facility] Address: [address] [place] [address] Performed By: #### 5 8410-2 ####[facility] [id number] [address] MCHC (RBC) [Mass/Vol] 31.6 g/dL Normal 30.5-36.0 [facility] Comment on above: Order Comment: Speci men Type: BLOOD SPECIMENOrdering Facility: [facility] Address: [address] [place] [address] Performed By: #### 5 8410-2 ####[facility] [id number] [address] MCV (RBC) [Entitic vol] 84.3 fL Normal 80.0-100.0 [facility] Comment on above: Order Comment: Speci men Type: BLOOD SPECIMENOrdering Facility: [facility] Address: [address] [place] [address] Performed By: #### 5 8410-2 ####[facility] [id number] [address] Nucleated RBC (Bld) [#/Vol] 10*3/uL Normal <0.01 [facility] Comment on above: Order Comment: Speci men Type: BLOOD SPECIMENOrdering Facility: [facility] Address: [address] [place] [address] Performed By: #### 5 8410-2 ####[facility] [id number] [address] Platelet mean volume (Bld) [Entitic vol] 9.7 fL Normal 9.0-12.7 [facility] Comment on above: Order Comment: Speci men Type: BLOOD SPECIMENOrdering Facility: [facility] Address: [address] [place] [address] Performed By: #### 5 8410-2 ####[facility] [id number] [address] [place] Platelets (Bld) [#/Vol] 278 10*3/uL Normal 150-400 [facility] Comment on above: Order Comment: Speci men Type: BLOOD SPECIMENOrdering Facility: [facility] Address: [address] [place] [address] Performed By: #### 5 8410-2 ####[facility] [id number] [address] [place] RBC (Bld) [#/Vol] 4.13 10*6/uL Normal 3.90-5.20 [facility] Comment on above: Order Comment: Speci men Type: BLOOD SPECIMENOrdering Facility: [facility] Address: [address] [place] [address] Performed By: #### 5 8410-2 ####[facility]IA [id number] [address] OF [facility] WBC (Bld) [#/Vol] 4.70 10*3/uL Normal 3.70-11.00 [facility] Comment on above: Order Comment: Speci men Type: BLOOD SPECIMENOrdering Facility: [facility] Address: [address] [place] [address] Performed By: #### 5 8410-2 ####[facility] [id number] [address] [place] NURSING PROGon 06-14-2024 NURSING PROG HNO ID: [id number] Author: JOSE JERNIGAN RN Service: Nursing Author [...] - ordered XR and lidocaine patch Normal [facility] XR SHLDR >/=3V AP/JASON AP/OTH R RTon [...] portions of the right lung are clear. 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: PSCB Transcribe Date/Time: Jun 14 2024 1:33P Dictated by : DEV WELCH MD This examination was interpreted and the report reviewed and electronically signed by: DEV WELCH MD on Jun 14 2024 1:35PM EST [id number] Normal [facility] ALLIED HEALTHon 06-13-2024 ALLIED HEALTH HNO ID: [id number] Author: ALFRED DALEY Chaplain Service: ? Author Type: Correctional Captain Type: Allied Health Filed: 06/13/2024 14:38 Note Text: SPIRITUAL CARE ASSESSMENT SERVICE DATE: 06/13/2024 SERVICE TIME: 11:53 Visit with: Patient Length of visit (minutes): 5 Judaism / Spirituality: Pt did not Disc. Reason: [...] 13, 2024 TIME: 2:31 PM PAGER/CONTACT #: [phone] Normal [facility] Basic metabolic 2000 panelon 06-13-2024 Anion gap [Moles/Vol] 11 mmol/L Normal 8-15 [facility] Comment on above: Order Comment: Speci men Type: BLOOD SPECIMEN Ordering Facility: [facility] Address: [address] [place] [address] Performed By: #### 2 4321-2, 48152-9, #### [facility] CLIA [id number] [address] [place] [address] [place] Calcium [Mass/Vol] 8.9 mg/dL Normal 8.5-10.2 [facility] Comment on above: Order Comment: Speci men Type: BLOOD SPECIMEN Ordering Facility: [facility] Address: [address] [place] [address] Performed By: #### 2 4321-2, 25063-9, #### [facility] CLIA [id number] [address] [place] [address] [place] Chloride [Moles/Vol] 101 mmol/L Normal 98-107 [facility] Comment on above: Order Comment: Speci men Type: BLOOD SPECIMEN Ordering Facility: [facility] Address: [address] [place] [address] Performed By: #### 2 4321-2, 96832-8, #### [facility] CLIA [id number] [address] [place] [address] [place] CO2 [Moles/Vol] 24 mmol/L Normal 22-30 [facility] Comment on above: Order Comment: Speci men Type: BLOOD SPECIMEN Ordering Facility: [facility] Address: [address] [place] [address] Performed By: #### 2 4321-2, 21408-3, #### [facility] CLIA [id number] [address] [place] [address] [place] Creatinine [Mass/Vol] 1.04 mg/dL High 0.58-0.96 [facility] Comment on above: Order Comment: Speci men Type: BLOOD SPECIMEN Ordering Facility: [facility] Address: [address] [place] [address] Performed By: #### 2 4321-2, 47624-7, #### [facility] CLIA [id number] [address] [place] Creatinine and Glomerular filtration rate.predicted panel (S/P/Bld) 53 mL/min/1.73m??? Low >=60 [facility] Comment on above: Order Comment: Rhina mason Type: BLOOD SPECIMEN Ordering Facility: [facility] Address: [address] [place] [address] Result Comment: Isa mated Glomerular Filtration Rate [...] actual GFR. Performed By: #### 2 4321-2, 68510-0, #### [facility] CLIA [id number] [address] [place] [address] [place] Glucose [Mass/Vol] 95 mg/dL Normal 74-99 [facility] Comment on above: Order Comment: Rhina mason Type: BLOOD SPECIMEN Ordering Facility: [facility] Address: [address] [place] [address] Result Comment: The [place] Diabetes Association (ADA) provides guidance for cutoff [...] Standards of Medical Care in Diabetes 2016, [place] Diabetes Association. Diabetes Care. 2016.39(Suppl 1). Performed By: #### 2 4321-2, 52578-7, #### [facility] CLIA [id number] [address] [place] Potassium [Moles/Vol] 3.8 mmol/L Normal 3.7-5.1 [facility] Comment on above: Order Comment: Speci men Type: BLOOD SPECIMEN Ordering Facility: [facility] Address: [address] [place] [address] Performed By: #### 2 4321-2, 30525-3, #### [facility] CLIA [id number] [address] [place] Sodium [Moles/Vol] 136 mmol/L Normal 136-144 [facility] Comment on above: Order Comment: Speci men Type: BLOOD SPECIMEN Ordering Facility: [facility] Address: [address] [place] [address] Performed By: #### 2 4321-2, 56833-2, #### [facility] CLIA [id number] [address] [place] Urea nitrogen [Mass/Vol] 16 mg/dL Normal 7-21 [facility] Comment on above: Order Comment: Speci men Type: BLOOD SPECIMEN Ordering Facility: [facility] Address: [address] [place] [address] Performed By: #### 2 4321-2, 29612-4, #### [facility] CLIA [id number] [address] [place] CBC panel Auto (Bld)on 06-13 Erythrocyte distribution width (RBC) [Ratio] 15.5 % High 11.5-15.0 [facility] Comment on above: Order Comment: Speci men Type: BLOOD SPECIMENOrdering Facility: [facility] Address: [address] [place] [address] Performed By: #### 5 8410-2 ####[facility]ORY[facility]IA [id number] [address] Hematocrit (Bld) [Volume fraction] 33.1 % Low 36.0-46.0 [facility] Comment on above: Order Comment: Speci men Type: BLOOD SPECIMENOrdering Facility: [facility] Address: [address] [place] [address] Performed By: #### 5 8410-2 ####[facility]ORY[facility]IA [id number] [address] [place] Hemoglobin (Bld) [Mass/Vol] 10.2 g/dL Low 11.5-15.5 [facility] Comment on above: Order Comment: Speci men Type: BLOOD SPECIMENOrdering Facility: [facility] Address: [address] [place] [address] Performed By: #### 5 8410-2 ####[facility]ORYCLIA [id number] [address] STATES OF [facility] MCH (RBC) [Entitic mass] 26.5 pg Normal 26.0-34.0 [facility] Comment on above: Order Comment: Speci men Type: BLOOD SPECIMENOrdering Facility: [facility] Address: [address] [place] [address] Performed By: #### 5 8410-2 ####[facility]ORYCLIA [id number] [address] [place] MCHC (RBC) [Mass/Vol] 30.8 g/dL Normal 30.5-36.0 [facility] Comment on above: Order Comment: Speci men Type: BLOOD SPECIMENOrdering Facility: [facility] Address: [address] [place] [address] Performed By: #### 5 8410-2 ####[facility]ORYCLIA [id number] [address] MCV (RBC) [Entitic vol] 86.0 fL Normal 80.0-100.0 [facility] Comment on above: Order Comment: Speci men Type: BLOOD SPECIMENOrdering Facility: [facility] Address: [address] [place] [address] Performed By: #### 5 8410-2 ####[facility]ORYCLIA [id number] [address] [place] Nucleated RBC (Bld) [#/Vol] 10*3/uL Normal <0.01 [facility] Comment on above: Order Comment: Speci men Type: BLOOD SPECIMENOrdering Facility: [facility] Address: [address] [place] [address] Performed By: #### 5 8410-2 ####[facility] LABORATORYCLIA [id number] [address] [place] Platelet mean volume (Bld) [Entitic vol] 9.6 fL Normal 9.0-12.7 [facility] Comment on above: Order Comment: Speci men Type: BLOOD SPECIMENOrdering Facility: [facility] Address: [address] [place] [address] Performed By: #### 5 8410-2 ####[facility] LABORATORYCLIA [id number] [address] [place] Platelets (Bld) [#/Vol] 287 10*3/uL Normal 150-400 [facility] Comment on above: Order Comment: Speci men Type: BLOOD SPECIMENOrdering Facility: [facility] Address: [address] [place] [address] Performed By: #### 5 8410-2 ####[facility] LABORATORYCLIA [id number] [place] [address] [place] RBC (Bld) [#/Vol] 3.85 10*6/uL Low 3.90-5.20 [facility] Comment on above: Order Comment: Speci men Type: BLOOD SPECIMENOrdering Facility: [facility] Address: [address] [place] [address] Performed By: #### 5 8410-2 ####[facility]ATORYCLIA [id number] [address] [place] WBC (Bld) [#/Vol] 4.79 10*3/uL Normal 3.70-11.00 [facility] Comment on above: Order Comment: Speci men Type: BLOOD SPECIMENOrdering Facility: [facility] Address: [address] [place] [address] Performed By: #### 5 8410-2 ####[facility] LABORATORYCLIA [id number] [address] aPTT PPPon 06-13-2024 aPTT Coag (PPP) [Time] 51.3 s High 23.0-32.4 [facility] Comment on above: Order Comment: Speci men Type: BLOOD SPECIMEN [facility] Address: [address] [place] [address] Performed By: #### 2 4321-2, 55940-3, 81050-4 #### [facility] CLIA [id number] [address] aPTT Coag (PPP) [Time] 89.0 s High 23.0-32.4 [facility] Comment on above: Order Comment: Speci men Type: BLOOD SPECIMEN [facility] Address: [address] [place] [address] Performed By: #### 2 4321-2, 94617-5, #### [facility] CLIA [id number] [address] ALLIED HEALTHon 06-12-2024 ALLIED HEALTH HNO ID: [id number] Author: MONA SEVILLA RT(R) Service: Radiology Author [...] PATIENT PRESENTS WITH AN IMPLANTABLE OR ATTACHED POWER GENERATING PLANT OPERATOR: No RADIOLOGY DEPARTMENT: CT; Exam(s) Completed: Brain PERIPHERAL IV DATA: Not applicable SIGNED BY: Mona Sevilla RT(R) June 12, 2024 9:13 AM Normal [facility] CBC W Auto Differential pane l (Bld)on 06-12-2024 Basophils (Bld) [#/Vol] 0.03 10*3/uL Normal <0.11 [facility] Comment on above: Order Comment: Speci men Type: BLOOD SPECIMEN [facility] Address: [address] [place] [address] Performed By: #### 2 4321-2, 56995-6, #### [facility] CLIA [id number] [address] [place] Basophils/100 WBC (Bld) 0.6 % Normal A [facility] Comment on above: Order Comment: Speci men Type: BLOOD SPECIMEN [facility] Address: [address] [place] [address] Performed By: #### 2 1-2, 92644-1, #### [facility] CLIA [id number] [address] [place] Differential cell count method Nom (Bld) Auto Normal [facility] Comment on above: Order Comment: Speci men Type: BLOOD SPECIMEN [facility] Address: [address] [place] [address] Performed By: #### 2 4321-2, 49594-7, #### [facility] CLIA [id number] [address] [place] [address] [place] Eosinophils (Bld) [#/Vol] 0.05 10*3/uL Normal <0.46 [facility] Comment on above: Order Comment: Speci men Type: BLOOD SPECIMEN [facility] Address: [address] [place] [address] Performed By: #### 2 4321-2, 68827-5, #### [facility] CLIA [id number] [address] [place] Eosinophils/100 WBC (Bld) 1.0 % Normal [facility] Comment on above: Order Comment: Speci men Type: BLOOD SPECIMEN [facility] Address: [address] [place] [address] Performed By: #### 2 4321-2, 50909-5, #### [facility] CLIA [id number] [address] [place] Erythrocyte distribution width (RBC) [Ratio] 15.6 % High 11.5-15.0 [facility] Comment on above: Order Comment: Speci men Type: BLOOD SPECIMEN [facility] Address: [address] [place] [address] Performed By: #### 2 4321-2, 47130-4, #### [facility] CLIA [id number] [address] [place] Hematocrit (Bld) [Volume fraction] 34.6 % Low 36.0-46.0 [facility] Comment on above: Order Comment: Speci men Type: BLOOD SPECIMEN [facility] Address: [address] [place] [address] Performed By: #### 2 1-2, 14265-6, #### [facility] CLIA [id number] [address] [place] Hemoglobin (Bld) [Mass/Vol] 10.6 g/dL Low 11.5-15.5 [facility] Comment on above: Order Comment: Speci men Type: BLOOD SPECIMEN [facility] Address: [address] [place] [address] Performed By: #### 2 4321-2, 25078-8, #### [facility] CLIA [id number] [address] [place] Immature granulocytes (Bld) [#/Vol] 10*3/uL Normal <0.10 [facility] Comment on above: Order Comment: Speci men Type: BLOOD SPECIMEN [facility] Address: [address] [place] [address] Performed By: #### 2 4321-2, 56212-7, #### [facility] CLIA [id number] [address] Immature granulocytes/100 WBC (Bld) 0.2 % Normal [facility] Comment on above: Order Comment: Speci men Type: BLOOD SPECIMEN [facility] Address: [address] [place] [address] Performed By: #### 2 4321-2, 83392-2, #### [facility] CLIA [id number] [address] [place] Lymphocytes (Bld) [#/Vol] 1.65 10*3/uL Normal 1.00-4.00 [facility] Comment on above: Order Comment: Speci men Type: BLOOD SPECIMEN [facility] Address: [address] [place] [address] Performed By: #### 2 1-2, 65695-6, #### [facility] CLIA [id number] [address] Lymphocytes/100 WBC (Bld) 31.9 % Normal [facility] Comment on above: Order Comment: Speci men Type: BLOOD SPECIMEN [facility] Address: [address] [place] [address] Performed By: #### 2 4321-2, 35616-7, #### [facility] CLIA [id number] [address] [place] MCH (RBC) [Entitic mass] 26.2 pg Normal 26.0-34.0 [facility] Comment on above: Order Comment: Speci men Type: BLOOD SPECIMEN [facility] Address: [address] [place] [address] Performed By: #### 2 4321-2, 64077-0, #### [facility] CLIA [id number] [address] MCHC (RBC) [Mass/Vol] 30.6 g/dL Normal 30.5-36.0 [facility] Comment on above: Order Comment: Speci men Type: BLOOD SPECIMEN [facility] Address: [address] [place] [address] Performed By: #### 2 4321-2, 79052-0, #### [facility] CLIA [id number] [address] [place] MCV (RBC) [Entitic vol] 85.6 fL Normal 80.0-100.0 [facility] Comment on above: Order Comment: Speci men Type: BLOOD SPECIMEN [facility] Address: [address] [place] [address] Performed By: #### 2 4320-2, 81665-5, #### [facility] CLIA [id number] [address] OF [facility] Monocytes (Bld) [#/Vol] 0.46 10*3/uL Normal <0.87 [facility] Comment on above: Order Comment: Speci men Type: BLOOD SPECIMEN [facility] Address: [address] [place] [address] Performed By: #### 2 4321-2, 08548-9, #### [facility] CLIA [id number] [address] Monocytes/100 WBC (Bld) 8.9 % Normal A [facility] Comment on above: Order Comment: Speci men Type: BLOOD SPECIMEN [facility] Address: [address] [place] [address] Performed By: #### 2 4321-2, 42269-3, #### [facility] CLIA [id number] [address] [place] [address] [place] Neutrophils (Bld) [#/Vol] 2.97 10*3/uL Normal 1.45-7.50 [facility] Comment on above: Order Comment: Speci men Type: BLOOD SPECIMEN [facility] Address: [address] [place] [address] Performed By: #### 2 1-2, 46671-2, #### [facility] CLIA [id number] [address] [place] Neutrophils/100 WBC (Bld) 57.4 % Normal [facility] Comment on above: Order Comment: Speci men Type: BLOOD SPECIMEN [facility] Address: [address] [place] [address] Performed By: #### 2 4320-2, 97783-2, #### [facility] CLIA [id number] [address] [place] Nucleated RBC (Bld) [#/Vol] 10*3/uL Normal <0.01 [facility] Comment on above: Order Comment: Speci men Type: BLOOD SPECIMEN [facility] Address: [address] [place] [address] Performed By: #### 2 1-2, 19154-5, #### [facility] CLIA [id number] [address] [place] [address] [place] Nucleated RBC/100 WBC (Bld) [Ratio] 0.0 /100 WBC Normal [facility] Comment on above: Order Comment: Speci men Type: BLOOD SPECIMEN [facility] Address: [address] [place] [address] Performed By: #### 2 1-2, 31725-2, #### [facility] CLIA [id number] [address] [place] [address] [place] Platelet mean volume (Bld) [Entitic vol] 9.6 fL Normal 9.0-12.7 [facility] Comment on above: Order Comment: Speci men Type: BLOOD SPECIMEN [facility] Address: [address] [place] [address] Performed By: #### 2 4321-2, 95032-9, #### [facility] CLIA [id number] [address] Platelets (Bld) [#/Vol] 314 10*3/uL Normal 150-400 [facility] Comment on above: Order Comment: Speci men Type: BLOOD SPECIMEN [facility] Address: [address] [place] [address] Performed By: #### 2 4321-2, 79127-7, #### [facility] CLIA [id number] [address] RBC (Bld) [#/Vol] 4.04 10*6/uL Normal 3.90-5.20 [facility] Comment on above: Order Comment: Speci men Type: BLOOD SPECIMEN [facility] Address: [address] [place] [address] Performed By: #### 2 4321-2, 52914-7, #### [facility] CLIA [id number] [address] WBC (Bld) [#/Vol] 5.17 10*3/uL Normal 3.70-11.00 [facility] Comment on above: Order Comment: Speci men Type: BLOOD SPECIMEN [facility] Address: [address] [place] [address] Performed By: #### 2 4321-2, 26314-8, #### [facility] CLIA [id number] [address] CONSULTon 06-12-2024 CONSULT HNO ID: [id number] Author: MINA TALBERT MD Service: Cardiovascular Disease Author Type: Physician Type: Consults Filed: 06/12/2024 10:40 Note Text: CARDIOLOGY CONSULTATION- [facility] Patient Name: Mel Castillo : 1940 PRIMARY CARE PHYSICIAN: Jared Evans MD [address] [place] [id number] REFERRING PHYSICIAN No referring provider defined for [...] presumptive 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[facility] with history of prior stroke PAD COPD [...] the hospital a few months ago at [facility] she was taking her Eliquis and [...] Orthostatic Pulse (more content not included)... Normal [facility] CONSULT PROGon 06-12-2024 CONSULT PROG HNO ID: [id number] Author: NICOLAS TESFAYE APRN.HAZARDOUS MATERIALS TANKER DRIVER Service: Neurology General Author Type: Nurse Practitioner [...] Score: 1 (06/12/24 0945 : Nicolas Tesfaye, SEBASTIAN.HAZARDOUS MATERIALS TANKER DRIVER) 1 MENTAL STATUS: Alert, oriented to person, [...] and Prevention (personally reviewed by Nicolas Tesfaye APRN.HAZARDOUS MATERIALS TANKER DRIVER): Daily Rounding Date: 06/12/24 Daily Rounding Time: [...] Mel Hernandez (more content not included)... Normal [facility] CT BRAIN WO IVCONon 06-12-20 CT BRAIN WO IVCON * * *Final Report* * * DATE OF EXAM: Jun 12 2024 9:25AM [facility] 0504 - CT BRAIN WO IVCON / [...] intracranial hemorrhage. Chronic changes, as detailed above. 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: PSCB Transcribe Date/Time: Jun 12 2024 9:42A Dictated by : LYDIA EVANS MD This examination was interpreted and the report reviewed and electronically signed by: LYDIA EVANS MD on Jun 12 2024 9:47AM EST [id number] Normal [facility] Comprehensive metabolic 2000 panelon 06-12-2024 Albumin [Mass/Vol] 3.6 g/dL Low 3.9-4.9 [facility] Comment on above: Order Comment: Rhina mason Type: BLOOD SPECIMEN [facility] Address: [address] [place] [address] Performed By: #### 2 4321-2, 23063-5, 09764-2 #### [facility] CLIA [id number] [address] [place] [address] [place] [facility] ALP [Catalytic activity/Vol] 88 U/L Normal 34-123 [facility] Comment on above: Order Comment: Rhina mason Type: BLOOD SPECIMEN [facility] Address: [address] [place] [address] Performed By: #### 2 4321-2, 00939-2, #### [facility] CLIA [id number] [address] [place] [address] [place] ALT With P-5'-P [Catalytic activity/Vol] 6 U/L Low 7-38 [facility] Comment on above: Order Comment: Speci men Type: BLOOD SPECIMEN [facility] Address: [address] [place] [address] Performed By: #### 2 4321-2, 58968-1, #### [facility] CLIA [id number] [address] [place] Anion gap [Moles/Vol] 13 mmol/L Normal 8-15 [facility] Comment on above: Order Comment: Speci men Type: BLOOD SPECIMEN [facility] Address: [address] [place] [address] Performed By: #### 2 4320-2, 81744-7, #### [facility] CLIA [id number] [address] [facility] AST With P-5'-P [Catalytic activity/Vol] 9 U/L Low 13-35 [facility] Comment on above: Order Comment: Speci men Type: BLOOD SPECIMEN [facility] Address: [address] [place] [address] Performed By: #### 2 1-2, 09883-1, #### [facility] CLIA [id number] [address] [place] Bilirubin [Mass/Vol] 0.6 mg/dL Normal 0.2-1.3 [facility] Comment on above: Order Comment: Speci men Type: BLOOD SPECIMEN [facility] Address: [address] [place] [address] Performed By: #### 2 4321-2, 80469-8, #### [facility] CLIA [id number] [address] [place] Calcium [Mass/Vol] 9.2 mg/dL Normal 8.5-10.2 [facility] Comment on above: Order Comment: Speci men Type: BLOOD SPECIMEN [facility] Address: [address] [place] [address] Performed By: #### 2 4321-2, 68645-9, #### [facility] CLIA [id number] [address] [place] [address] [place] Chloride [Moles/Vol] 101 mmol/L Normal 98-107 [facility] Comment on above: Order Comment: Speci men Type: BLOOD SPECIMEN [facility] Address: [address] [place] [address] Performed By: #### 2 4321-2, 88407-3, #### [facility] CLIA [id number] [address] STATES OF [facility] CO2 [Moles/Vol] 23 mmol/L Normal 22-30 [facility] Comment on above: Order Comment: Speci men Type: BLOOD SPECIMEN [facility] Address: [address] [place] [address] Performed By: #### 2 4321-2, 86854-9, #### [facility] CLIA [id number] [address] [place] Creatinine [Mass/Vol] 1.02 mg/dL High 0.58-0.96 [facility] Comment on above: Order Comment: Speci men Type: BLOOD SPECIMEN [facility] Address: [address] [place] [address] Performed By: #### 2 4321-2, 50468-9, #### [facility] CLIA [id number] [address] Creatinine and Glomerular filtration rate.predicted panel (S/P/Bld) 54 mL/min/1.73m??? Low >=60 [facility] Comment on above: Order Comment: Speci men Type: BLOOD SPECIMEN [facility] Address: [address] [place] [address] Result Comment: Isa mated Glomerular Filtration Rate [...] actual GFR. Performed By: #### 2 4321-2, 43917-9, #### [facility] CLIA [id number] [address] [place] [address] [place] Glucose [Mass/Vol] 109 mg/dL High 74-99 [facility] Comment on above: Order Comment: Rhina mason Type: BLOOD SPECIMEN [facility] Address: [address] [place] [address] Result Comment: The [place] Diabetes Association (ADA) provides guidance for cutoff [...] Standards of Medical Care in Diabetes 2016, [place] Diabetes Association. Diabetes Care. 2016.39(Suppl 1). Performed By: #### 2 4321-2, 87291-5, #### [facility] CLIA [id number] [address] [place] [address] [place] Potassium [Moles/Vol] 4.0 mmol/L Normal 3.7-5.1 [facility] Comment on above: Order Comment: Rhina mason Type: BLOOD SPECIMEN Ordering Facility[facility] Address: [address] [id number] Performed By: #### 2 4321-2, 38586-5, #### [facility] CLIA [id number] [address] [place] Protein [Mass/Vol] 6.4 g/dL Normal 6.3-8.0 [facility] Comment on above: Order Comment: Speci men Type: BLOOD SPECIMEN Order[facility] Address: [address] [place] [address] Performed By: #### 2 4321-2, 32838-5, #### [facility] CLIA [id number] [address] STATES OF [facility] Sodium [Moles/Vol] 137 mmol/L Normal 136-144 [facility] Comment on above: Order Comment: Speci men Type: BLOOD SPECIMEN Ordering Facility[facility] Address: [address] [place] [address] Performed By: #### 2 1-2, 50017-7, #### [facility] CLIA [id number] [address] Urea nitrogen [Mass/Vol] 12 mg/dL Normal 7-21 [facility] Comment on above: Order Comment: Speci men Type: BLOOD SPECIMEN Ordering Facility[facility] Address: [address] [place] [address] Performed By: #### 2 4321-2, 99749-6, #### [facility] CLIA [id number] [address] [place] Magnesium SerPl-mCncon 06-12 Magnesium [Mass/Vol] 2.3 mg/dL Normal 1.7-2.3 [facility] Comment on above: Order Comment: Speci men Type: BLOOD SPECIMEN Ordering Facility[facility] Address: [address] [place] [address] Performed By: #### 2 4321-2, 51559-4, #### [facility] CLIA [id number] [address] [facility] NURSING PROGon 06-12-2024 NURSING PROG HNO ID: [id number] Author: ROBINSON VELÁSQUEZ, RN Service: ? Author [...] Next PTT draw due at 1900 Normal [facility] PT EDon 06-12-2024 PT ED HNO ID: [id number] Author: DOT PETERSON RPh Service: Pharmacy Author [...] questions. Patient aware of copay. Nayana Rowan, Proof Machine Operator [facility] THERAPY NTon 06-12-2024 THERAPY NT HNO ID: [id number] Author: LATOYA LONG PT Service: Physical Therapy Author Type: Physical Therapist Type: Therapy (PT/OT/Speech/Resp) Filed: 06/12/2024 15:33 Note Text: Physical Therapy Treatment Summary SERVICE DATE: 06/12/2024 SERVICE TIME: 1445 to 1509 ROOM: [place] [address] PT 6 Clicks Score: 13 DISCHARGE RECOMMENDATIONS [...] Lack of coordination-other TREATMENT INTERVENTIONS Therapeutic Activity (19233), Neuromuscular Reeducation (35865) Timed Code Treatment (minutes): 23 Skilled Treatment Time (minutes): 23 Therapeutic Activity (55734) Treatment Minutes: 10 $ Therapeutic Activity (75316) Billed Units: 1 unit Training and assist with bed mobility, transfers and taking steps in place and side steps along the EOB with the walker. Neuromuscular Reeducation (80193) Treatment Minutes: 13 $ Neuromuscular Reeducation (28641) Billed Units: 1 unit Instructed pt in [...] position andrea (more content not included)... Normal [facility] THERAPY NT HNO ID: [id number] Author: SHANNAN SEGOVIA OTR/[place] Service: Occupational Therapy Author Type: Occupational Therapist Type: Therapy (PT/OT/Speech/Resp) Filed: 06/12/2024 08:50 Note Text: Occupational Therapy Evaluation Summary SERVICE DATE: 06/12/2024 SERVICE TIME: 810 to 833 ROOM: [id number] OT 6 Clicks Score: 15 DISCHARGE RECOMMENDATIONS [...] and signs-other TREATMENT INTERVENTIONS Evaluation, Therapeutic Activity (19328) Timed Code Treatment (minutes): 8 Skilled Treatment Time (minutes): 23 $ Evaluation - Moderate (69928) Billed Units: 1 unit Therapeutic Activity (04871) Treatment Minutes: 8 $ Therapeutic Activity (36285) Billed Units: 1 unit TRAINING AND EDUCATION PROVIDED Assistive Device Use, Bed Mobility, Benefits of In-Hospital Mobility, Cognitive Stimulation Activities, Discharge Planning, Disease Specific Education, Role of Occupational Therapy, Safety/Judgment, Sitting Balance to Improve [place] with ADLs/Self-Care THERAPEUTIC SKILLS USED Activity Dosing, [...] Stand By (more content not included)... Normal [facility] aPTT PPPon 06-12-2024 aPTT Coag (PPP) [Time] 56.1 s High 23.0-32.4 [facility] Comment on above: Order Comment: Rhina men Type: BLOOD SPECIMEN [facility] Facility[facility] Address: [address] [place] [address] Performed By: #### 2 4321-2, 51094-7, #### [facility] CLIA [id number] [address] aPTT Coag (PPP) [Time] 79.0 s High 23.0-32.4 [facility] Comment on above: Order Comment: Speci men Type: BLOOD SPECIMEN Ordering Facility: [facility] Address: [address] [place] [address] Performed By: #### 1 4979-9 #### [facility] CLIA [id number] [address] aPTT Coag (PPP) [Time] 123.9 s High 23.0-32.4 [facility] Comment on above: Order Comment: Samiri men Type: BLOOD SPECIMEN Ordering Facility: [facility] Address: [address] [place] [address] Performed By: #### 2 4321-2, 51602-7, #### [facility] CLIA [id number] [address] [id number] [place] aPTT Coag (PPP) [Time] 117.3 s High 23.0-32.4 [facility] Comment on above: Order Comment: Speci men Type: BLOOD SPECIMEN Ordering Facility: [facility] Address: [address] [place] [address] Performed By: #### 2 4321-2, 10217-5, 23505-2 #### [facility] CLIA [id number] [address] [place] [address] [facility] 36on 06-11-2024 36 Normal [facility] ALLIED HEALTHon 06-11-2024 ALLIED HEALTH HNO ID: [id number] Author: FABIO KERR Tech Service: ? Author Type: Pipeline Technician Type: Allied Health Filed: 06/11/2024 14:16 Note [...] PATIENT PRESENTS WITH AN IMPLANTABLE OR ATTACHED POWER GENERATING PLANT OPERATOR: No RADIOLOGY DEPARTMENT: MR; Exam(s) Completed: Head: Routine Brain [place] MRA MRA Carotid PERIPHERAL IV DATA: Not applicable SIGNED BY: Anne Marie Carrillo June 11, 2024 2:15 PM Normal [facility] CBC W Auto Differential pane l (Bld)on 06-11-2024 Basophils (Bld) [#/Vol] 0.03 10*3/uL Normal <0.11 [facility] Comment on above: Order Comment: Speci men Type: BLOOD SPECIMEN Ordering Facility: [facility] Address: [address] [place] [address] Performed By: #### 2 4321-2, 86106-8, #### [facility] CLIA [id number] [address] Basophils/100 WBC (Bld) 0.4 % Normal [facility] Comment on above: Order Comment: Speci men Type: BLOOD SPECIMEN Ordering Facility: [facility] Address: [address] [place] [address] Performed By: #### 2 4321-2, 57469-8, #### [facility] CLIA [id number] [address] Differential cell count method Nom (Bld) Auto Normal [facility] Comment on above: Order Comment: Speci men Type: BLOOD SPECIMEN Ordering Facility: [facility] Address: [address] [place] [address] Performed By: #### 2 4320-2, 28457-1, #### [facility] CLIA [id number] [address] [facility] Eosinophils (Bld) [#/Vol] 10*3/uL Normal <0.46 [facility] Comment on above: Order Comment: Speci men Type: BLOOD SPECIMEN Ordering Facility: [facility] Address: [address] [place] [address] Performed By: #### 2 1-2, 47785-9, #### [facility] CLIA [id number] [address] Eosinophils/100 WBC (Bld) 0.3 % Normal [facility] Comment on above: Order Comment: Speci men Type: BLOOD SPECIMEN Ordering Facility: [facility] Address: [address] [place] [address] Performed By: #### 2 4321-2, 68565-9, #### [facility] CLIA [id number] [address] [place] Erythrocyte distribution width (RBC) [Ratio] 15.6 % High 11.5-15.0 [facility] Comment on above: Order Comment: Speci men Type: BLOOD SPECIMEN Ordering Facility: [facility] Address: [address] [place] [address] Performed By: #### 2 1-2, 80603-9, #### [facility] CLIA [id number] [address] [place] Hematocrit (Bld) [Volume fraction] 37.6 % Normal 36.0-46.0 [facility] Comment on above: Order Comment: Speci men Type: BLOOD SPECIMEN Ordering Facility: [facility] Address: [address] [place] [address] Performed By: #### 2 4321-2, 28971-9, #### [facility] CLIA [id number] [address] [place] [address] [place] Hemoglobin (Bld) [Mass/Vol] 11.5 g/dL Normal 11.5-15.5 [facility] Comment on above: Order Comment: Speci men Type: BLOOD SPECIMEN Ordering Facility: [facility] Address: [address] [place] [address] Performed By: #### 2 1-2, 02434-8, #### [facility] CLIA [id number] [address] [place] Immature granulocytes (Bld) [#/Vol] 0.03 10*3/uL Normal <0.10 [facility] Comment on above: Order Comment: Speci men Type: BLOOD SPECIMEN Ordering Facility: [facility] Address: [address] [place] [address] Performed By: #### 2 1-2, 15041-9, #### [facility] CLIA [id number] [address] [place] Immature granulocytes/100 WBC (Bld) 0.4 % Normal [facility] Comment on above: Order Comment: Speci men Type: BLOOD SPECIMEN Ordering Facility: [facility] Address: [address] [place] [address] Performed By: #### 2 4321-2, 41678-6, #### [facility] CLIA [id number] [address] [facility] Lymphocytes (Bld) [#/Vol] 1.26 10*3/uL Normal 1.00-4.00 [facility] Comment on above: Order Comment: Speci men Type: BLOOD SPECIMEN Ordering Facility: [facility] Address: [facility] [place] [address] Performed By: #### 2 4321-2, 54696-0, #### [facility] CLIA [id number] [address] Lymphocytes/100 WBC (Bld) 16.9 % Normal [facility] Comment on above: Order Comment: Speci men Type: BLOOD SPECIMEN Ordering Facility: [facility] Address: [address] [place] [address] Performed By: #### 2 1-2, 66553-3, #### [facility] CLIA [id number] [address] STATES OF [facility] MCH (RBC) [Entitic mass] 26.6 pg Normal 26.0-34.0 [facility] Comment on above: Order Comment: Speci men Type: BLOOD SPECIMEN Ordering Facility: [facility] Address: [address] [place] [address] Performed By: #### 2 4321-2, 96517-3, #### [facility] CLIA [id number] [address] [place] MCHC (RBC) [Mass/Vol] 30.6 g/dL Normal 30.5-36.0 [facility] Comment on above: Order Comment: Speci men Type: BLOOD SPECIMEN Ordering Facility: [facility] Address: [address] [place] [address] Performed By: #### 2 4321-2, 55928-0, #### [facility] CLIA [id number] [address] [place] [address] [place] MCV (RBC) [Entitic vol] 87.0 fL Normal 80.0-100.0 [facility] Comment on above: Order Comment: Speci men Type: BLOOD SPECIMEN Ordering Facility: [facility] Address: [address] [place] [address] Performed By: #### 2 4321-2, 84259-8, #### [facility] CLIA [id number] [address] [place] Monocytes (Bld) [#/Vol] 0.68 10*3/uL Normal <0.87 [facility] Comment on above: Order Comment: Speci men Type: BLOOD SPECIMEN Ordering Facility: [facility] Address: [address] [place] [address] Performed By: #### 2 4321-2, 44794-0, #### [facility] CLIA [id number] [address] OF [facility] Monocytes/100 WBC (Bld) 9.1 % Normal [facility] Comment on above: Order Comment: Speci men Type: BLOOD SPECIMEN Ordering Facility: [facility] Address: [address] [place] [address] Performed By: #### 2 4321-2, 82017-8, #### [facility] CLIA [id number] [address] [place] [address] [place] Neutrophils (Bld) [#/Vol] 5.43 10*3/uL Normal 1.45-7.50 [facility] Comment on above: Order Comment: Speci men Type: BLOOD SPECIMEN Ordering Facility: [facility] Address: [address] [place] [address] Performed By: #### 2 4321-2, 47171-7, #### [facility] CLIA [id number] [address] [place] Neutrophils/100 WBC (Bld) 72.9 % Normal [facility] Comment on above: Order Comment: Speci men Type: BLOOD SPECIMEN Ordering Facility: [facility] Address: [address] [place] [address] Performed By: #### 2 4321-2, 24837-3, #### [facility] CLIA [id number] [address] [place] Nucleated RBC (Bld) [#/Vol] 10*3/uL Normal <0.01 [facility] Comment on above: Order Comment: Speci men Type: BLOOD SPECIMEN Ordering Facility: [facility] Address: [address] [place] [address] Performed By: #### 2 4321-2, 66974-8, #### [facility] CLIA [id number] [address] [place] Nucleated RBC/100 WBC (Bld) [Ratio] 0.0 /100 WBC Normal [facility] Comment on above: Order Comment: Speci men Type: BLOOD SPECIMEN Ordering Facility: [facility] Address: [address] [place] [address] Performed By: #### 2 1-2, 53063-3, #### [facility] CLIA [id number] [address] [place] Platelet mean volume (Bld) [Entitic vol] 9.5 fL Normal 9.0-12.7 [facility] Comment on above: Order Comment: Speci men Type: BLOOD SPECIMEN Ordering Facility: [facility] Address: [address] [place] [address] Performed By: #### 2 4321-2, 62463-0, #### [facility] CLIA [id number] [address] [place] [address] [place] Platelets (Bld) [#/Vol] 329 10*3/uL Normal 150-400 [facility] Comment on above: Order Comment: Speci men Type: BLOOD SPECIMEN Ordering Facility: [facility] Address: [address] [place] [address] Performed By: #### 2 4321-2, 51257-2, 30187-4 #### [facility] CLIA [id number] [address] [place] RBC (Bld) [#/Vol] 4.32 10*6/uL Normal 3.90-5.20 [facility] Comment on above: Order Comment: Speci men Type: BLOOD SPECIMEN Ordering Facility: [facility] Address: [address] [place] [address] Performed By: #### 2 4321-2, 92204-7, #### [facility] CLIA [id number] [address] WBC (Bld) [#/Vol] 7.45 10*3/uL Normal 3.70-11.00 [facility] Comment on above: Order Comment: Speci men Type: BLOOD SPECIMEN Ordering Facility: [facility] Address: [address] [place] [address] Performed By: #### 2 4321-2, 48288-6, #### [facility] CLIA [id number] [address] CONSULTon 06-11-2024 CONSULT HNO ID: [id number] Author: JENNY WALLACE MD Service: Neurology General [...] cannot ambulate. Pre-admission Pre-morbid mRS: Premorbid Modified Miner Score: 0 - No symptoms at all [...] Vital Signs: (more content not included)... Normal [facility] CONSULT HNO ID: [id number] Author: TOÑO MANZO MD Service: Urology Author [...] discussed with the Patient or Patient's Authorized Vest Presser. As applicable, any other physician, advance practice provider, medical student, or other health professional student that will be observing or involved in the sensitive examination for educational or training purposes was discussed with the Patient or Authorized Vest Presser. The Patient or Authorized Vest Presser has agreed to proceed with the sensitive [...] lesion. Consider follow-up renal CT/MR for characterization. 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 Chaudhry (more content not included)... Normal [facility] CONSULT PROGon 06-11-2024 CONSULT PROG HNO ID: [id number] Author: CARL PERSAUD RPh Service: Pharmacy Author [...] care of this patient. Carl Persaud RPh [facility] CONSULT PROG HNO ID: [id number] Author: CARL PERSAUD RPh Service: Pharmacy Author [...] education: No Signature: Carl Persaud RPh Normal [facility] CT ABD/PEL W IVCONon 024 CT ABD/PEL W IVCON * * *Final Report* * * DATE OF EXAM: Jun 11 2024 3:07AM [facility] 0530 - CT ABD/PEL W IVCON / [...] to bilateral greater trochanters, similar to prior. Electrification Adviser (topogram) images: No additional findings. IMPRESSION: 1. Mild bilateral hydroureteronephrosis to the pelvic brim without evidence of ureterolithiasis. 2. Indeterminate left renal lesion. Consider follow-up renal CT/MR for characterization. 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 Transcribe Date/Time: Jun 11 2024 3:09A Dictated by : RAF AYALA MD This examination was interpreted and the report reviewed and electronically signed by: RAF AYALA MD on Jun 11 2024 3:40AM EST [id number] Normal [facility] CT BRAIN WO IVCONon 06-11-20 CT BRAIN WO IVCON * * *Final Report* * * DATE OF EXAM: Jun 11 2024 3:05AM [facility] 0504 - CT BRAIN WO IVCON / [...] changes and small remote right occipital infarct. 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 Transcribe Date/Time: Jun 11 2024 3:05A Dictated by : RIN LANE MD This examination was interpreted and the report reviewed and electronically signed by: RIN LANE MD on Jun 11 2024 3:16AM EST [id number] Normal [facility] ECHO WITH AGITATED SALINE CO NTRASTon 06-11-2024 ECHO WITH AGITATED SALINE CONTRAST Echocardiography Report: Transthoracic Echo [facility] Date of service: 06/11/2024 11:20:46 AM [facility]OSPITAL Ordering physician: DON EDWARDS Indication: TIA Technologist: Dinora Fields [facility] Interpreting physician: Nando Costa MD PATIENT: Name: [...] * * Final * * * CC [facility] Image : [id number] Normal [facility] ED NOTEon 06-11-2024 ED NOTE HNO ID: [id number] Author: GISSELL CARRINGTON RN Service: Emergency Medicine Author Type: Registered Nurse Type: ED Notes Filed: 06/11/2024 05:58 Note Text: Gave report to assigned RN on 2100. Assigned RN is ready to receive patient at this time. Normal [facility] ED NOTE HNO ID: [id number] Author: GISSELL CARRINGTON RN Service: Emergency Medicine Author Type: Registered Nurse Type: ED Notes Filed: 06/11/2024 00:40 Note Text: Dr. Mendoza at bedside placing a US IV at this time. Normal [facility] HIGH SENSITIVITY TROPONIN T (SECOND)on 06-11-2024 Troponin T.cardiac High sensitivity method [Mass/Vol] 14 ng/L High <12 [facility] Comment on above: Order Comment: Speci men Type: BLOOD SPECIMEN Ordering Facility: [facility] Address: [address] [place] [address] Performed By: #### 2 4321-2, 24664-9, #### [facility] CLIA [id number] [address] HIGH SENSITIVITY TROPONIN T (THIRD) 3 HRS AFTER INITIALon 06-11-2024 Troponin T.cardiac High sensitivity method [Mass/Vol] 14 ng/L High <12 [facility] Comment on above: Order Comment: Speci men Type: BLOOD SPECIMEN Ordering Facility: [facility] Address: [address] [place] [address] Performed By: #### 2 4321-2, 54044-8, #### [facility] CLIA [id number] [address] STATES [place] [facility] HISTORY PHYSICALon HISTORY PHYSICAL HNO ID: [id number] Author: DON EDWARDS DO Service: Hospital Medicine Author Type: Physician Type: H&P Filed: 06/11/2024 14:14 Note Text: DEPARTMENT OF HOSPITAL MEDICINE HISTORY AND PHYSICAL EXAM SERVICE DATE: 06/11/2024 SERVICE TIME: 10:25 AM Primary Care Physician: Jared Evans MD, MD NIGHT AND WEEKEND COVERAGE: JENNIE COVERAGE: From 7am - 7pm, please call [phone] After 7pm, please call cross cover pager #[phone] Subjective CHIEF COMPLAINT: dizziness with vomiting, slurred [...] Drains, and Airways Line Duration Peripheral 06/11/24 [facility] Left Antecubital 20 Gauge <1 day Drain Duration External Collection Device 06/11/24 0250 [facility] <1 day Reviewed lines and needs to be continued: REASONS: Telemetry DATA: Diagnostic tests reviewed for today's visit: Most recent lab (more content not included)... Normal [facility] MRA BRAIN WO IVCONon 024 MRA BRAIN WO IVCON * * *Final Report* * * DATE OF EXAM: Jun 11 2024 3:52PM [facility] 0272 - MRA BRAIN WO IVCON / PROCEDURE REASON: Neuro deficit, acute, stroke suspected * * * * Physician Interpretation * * * * EXAMINATION: MRI BRAIN WO IVCON, MRA BRAIN WO IVCON, MRA CAROTID WO IVCON CLINICAL HISTORY: Neuro deficit, acute, stroke suspected TECHNIQUE: Routine noncontrast MRI brain protocol including diffusion images. Intracranial and carotid 3D fagf-wb-rudxgx MRA. 3D maximum intensity projection images were [...] Patency: Bilateral Dominance: Left INTRACRANIAL MRA: The nulato of [place] is patent without significant stenosis. 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 IMPRESSION: Motion degraded study. 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 No hemorrhagic transformation or significant mass effect. Unremarkable carotid MRA. 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: [facility] Transcribe Date/Time: Jun 11 2024 3:54P Dictated by : ESTHER MCKEON MD This examination was interpreted and the report reviewed and electronically signed by: ESTHER MCKEON MD on Jun 11 2024 4:13PM EST [id number] Normal [facility] MRA CAROTID WO IVCONon 06-11 MRA CAROTID WO IVCON * * *Final Report* * * DATE OF EXAM: Jun 11 2024 3:52PM [facility] 0275 - MRA CAROTID WO IVCON / PROCEDURE REASON: Neuro deficit, acute, stroke suspected * * * * Physician Interpretation * * * * EXAMINATION: MRI BRAIN WO IVCON, MRA BRAIN WO IVCON, MRA CAROTID WO IVCON CLINICAL HISTORY: Neuro deficit, acute, stroke suspected TECHNIQUE: Routine noncontrast MRI brain protocol including diffusion images. Intracranial and carotid 3D xkme-un-hnffjq MRA. 3D maximum intensity projection images were [...] Patency: Bilateral Dominance: Left INTRACRANIAL MRA: The nulato of [place] is patent without significant stenosis. 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 IMPRESSION: Motion degraded study. 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 No hemorrhagic transformation or significant mass effect. Unremarkable carotid MRA. 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 Transcribe Date/Time: Jun 11 2024 3:54P Dictated by : ESHTER MCKEON MD This examination was interpreted and the report reviewed and electronically signed by: ESTHER MCKEON MD on Jun 11 2024 4:13PM EST [id number] Normal [facility] MRI BRAIN WO IVCONon 024 MRI BRAIN WO IVCON * * *Final Report* * * DATE OF EXAM: Jun 11 2024 3:52PM [facility] 0294 - MRI BRAIN WO IVCON / PROCEDURE REASON: stroke * * * * Physician Interpretation * * * * EXAMINATION: MRI BRAIN WO IVCON, MRA BRAIN WO IVCON, MRA CAROTID WO IVCON CLINICAL HISTORY: Neuro deficit, acute, stroke suspected TECHNIQUE: Routine noncontrast MRI brain protocol including diffusion images. Intracranial and carotid 3D xmsw-mu-lfilkf MRA. 3D maximum intensity projection images were [...] Patency: Bilateral Dominance: Left INTRACRANIAL MRA: The nulato of [place] is patent without significant stenosis. 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 IMPRESSION: Motion degraded study. 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 No hemorrhagic transformation or significant mass effect. Unremarkable carotid MRA. 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 Transcribe Date/Time: Jun 11 2024 3:54P Dictated by : ESTHER MCKEON MD This examination was interpreted and the report reviewed and electronically signed by: ESTHER MCKEON MD on Jun 11 2024 4:13PM EST [id number] Normal [facility] PT panel Coag (PPP)on 2023 INR Coag (PPP) [Relative time] 1.2 {INR} Normal 0.9-1.3 [facility] Comment on above: Order Comment: Specrobson mason Type: BLOOD SPECIMEN Ordering Facility: [facility] Address: [address] [place], [place] [address] Result Comment: Mayra min K Antagonist (VKA) Therapeutic Range: INR 2 to 3 (Target INR of 2.5) Note: For patients treated with VKA drugs, such as warfarin, the [employer] 2012 Guideline recommends [...] Chest 2012, 141:7S-47S Daren RA, et al. [facility] 2017, 70: 252-289 Performed By: #### 2 4321-2, 62522-6, #### [facility] CLIA [id number] [address] [place] [facility] PT Coag (PPP) [Time] 12.6 s Normal 9.7-13.0 [facility] Comment on above: Order Comment: Specrobson mason Type: BLOOD SPECIMEN Ordering Facility: [facility] Address: [address] [place] [address] Performed By: #### 2 4321-2, 22769-3, #### [facility] CLIA [id number] [address] [place] THERAPY NTon 06-11-2024 THERAPY NT HNO ID: [id number] Author: BASILIA MAGALLANES, CCC-THREAD SPINNER Service: Speech/Swallow Author Type: Speech Language Pathologist Type: Therapy (PT/OT/Speech/Resp) Filed: 06/11/2024 09:44 Note Text: Speech Therapy Clinical Swallow Evaluation SERVICE DATE: 06/11/2024 SERVICE TIME: 915 to 930 ROOM: [place] [address] IMPRESSION: Functional oropharyngeal phases of swallowing: without [...] Skilled Need Interventions Provided: Clinical Swallow Evaluation (15826) $ Clinical Swallow Evaluation (69176) Billed Units: 1 unit Training and Education [...] for this therapy evaluation/treatment. SIGNATURE: Basilia Magallanes CCC-THREAD SPINNER PATIENT NAME: Mel Castillo DATE: June 11, 2024 TIME: 9:39 AM Normal [facility] THERAPY NT HNO ID: [id number] Author: MEHREEN MANCERA PT Service: Physical Therapy Author Type: Physical Therapist Type: Therapy (PT/OT/Speech/Resp) Filed: 06/11/2024 09:27 Note Text: Physical Therapy Evaluation Summary SERVICE DATE: 06/11/2024 SERVICE TIME: 804 to 841 ROOM: [place] [address] PT 6 Clicks Score: 18 DISCHARGE RECOMMENDATIONS [...] and signs-other TREATMENT INTERVENTIONS Evaluation, Canalith Repositioning (65876) Skilled Treatment Time (minutes): 37 $ Evaluation-Moderate (18719) Billed Units: 1 unit $ Canalith Repositioning (76647) Billed Units: 1 unit Repositioning maneuver for [...] due to blind L eye Positional Testing: Berwind-Hallpike, Left, Horizontal Canals, Left Berwind-Hallpike, Left: Note: pt with vertigo pattern of [...] 3 Times (more content not included)... Normal [facility] Urinalysis complete panel (U )on 06-11-2024 Bilirubin Ql (U) Negative Normal Negative [facility] Comment on above: Order Comment: Speci men Type: URINE SPECIMENOrdering Facility: [facility] Address: [address] [place] [address] Performed By: #### 2 4356-8 ####[facility]ORY[facility]IA [id number] [place] [address] [place] Clarity (Unsp spec) Clear Normal Clear [facility] Comment on above: Order Comment: Speci men Type: URINE SPECIMENOrdering Facility: [facility] Address: [address] [place] [address] Performed By: #### 2 4356-8 ####[facility]ORY[facility]IA [id number] [address] OF [facility] Color (U) Light Yellow Normal yellow [facility] Comment on above: Order Comment: Speci men Type: URINE SPECIMENOrdering Facility: [facility] Address: [address] [place] [address] Performed By: #### 2 4356-8 ####[facility]ORY[facility]IA [id number] [address] [place] Glucose Test strip (U) [Mass/Vol] Negative Normal Trace, Negative [facility] Comment on above: Order Comment: Speci men Type: URINE SPECIMENOrdering Facility: [facility] Address: [address] [place] [address] Performed By: #### 2 4356-8 ####[facility]ORYCLIA [id number] [address] [place] Hemoglobin Ql (U) Trace Normal Negative, Trace [facility] Comment on above: Order Comment: Speci men Type: URINE SPECIMENOrdering Facility: [facility] Address: [address] [place] [address] Performed By: #### 2 4356-8 ####[facility]ORYCLIA [id number] [address] [place] Ketones Ql (U) Negative Normal Negative, Trace [facility] Comment on above: Order Comment: Speci men Type: URINE SPECIMENOrdering Facility: [facility] Address: [address] [place] [address] Performed By: #### 2 4356-8 ####[facility]ORYCLIA [id number] [address] [place] Leukocyte esterase Test strip Ql (U) Negative Normal Negative, 25 Jose Luis/uL [facility] Comment on above: Order Comment: Speci men Type: URINE SPECIMENOrdering Facility: [facility] Address: [address] [place] [address] Performed By: #### 2 4356-8 ####[facility]ORYCLIA [id number] [place] [address] [place] Nitrite Ql (U) Negative Normal Negative [facility] Comment on above: Order Comment: Speci men Type: URINE SPECIMENOrdering Facility: [facility] Address: [address] [place] [address] Performed By: #### 2 4356-8 ####[facility] LABORATORYCLIA [id number] [place] [address] [place] pH (U) [pH] High 5.0-8.0 [facility] Comment on above: Order Comment: Speci men Type: URINE SPECIMENOrdering Facility: [facility] Address: [address] [place] [address] Performed By: #### 2 4356-8 ####[facility] LABORATORYCLIA [id number] [address] [place] [employer] [facility] Protein (U) [Mass/Vol] 1+ Abnormal Trace , Negative [facility] Comment on above: Order Comment: Speci men Type: URINE SPECIMENOrdering Facility: [facility] Address: [address] [place] [address] Performed By: #### 2 4356-8 ####[facility] LABORATORYCLIA [id number] [address] [place] [employer] [facility] RBC LM.HPF (Urine sed) [#/Area] 6-10 /HPF Abnormal 0-3 /HPF [facility] Comment on above: Order Comment: Speci men Type: URINE SPECIMENOrdering Facility: [facility] Address: [address] [place] [address] Performed By: #### 2 4356-8 ####[facility] LABORATORYCLIA [id number] [place] [address] [place] Specific gravity (U) [Rel density] 1.039 High 1.005-1.030 [facility] Comment on above: Order Comment: Speci men Type: URINE SPECIMENOrdering Facility: [facility] Address: [address] [place] [address] Performed By: #### 2 4356-8 ####[facility] LABORATORYCLIA [id number] [address] [place] Urobilinogen Ql (U) Normal Normal Normal [facility] Comment on above: Order Comment: Speci men Type: URINE SPECIMENOrdering Facility: [facility] Address: [address] [place] [address] Performed By: #### 2 4356-8 ####[facility] LABORATORYCLIA [id number] [address] WBC LM.HPF (Urine sed) [#/Area] 0-5 /HPF Normal 0-5 /HPF [facility] Comment on above: Order Comment: Speci men Type: URINE SPECIMENOrdering Facility: [facility] Address: [address] [place] [address] Performed By: #### 2 4356-8 ####[facility] LABORATORYCLIA [id number] [address] aPTT PPPon 06-11-2024 aPTT Coag (PPP) [Time] 28.2 s Normal 23.0-32.4 [facility] Comment on above: Order Comment: Speci men Type: BLOOD SPECIMENOrdering Facility: [facility] Address: [address] [place] [address] Performed By: #### 1 4979-9 ####[facility] LABORATORYCLIA [id number] [address] aPTT Coag (PPP) [Time] 28.9 s Normal 23.0-32.4 [facility] Comment on above: Order Comment: Speci men Type: BLOOD SPECIMEN [facility] Address: [address] [place] [address] Performed By: #### 2 4321-2, 98797-0, 72678-3 #### [facility] CLIA [id number] [address] CBC W Auto Differential pane l (Bld)on 06-10-2024 Basophils (Bld) [#/Vol] 0.04 10*3/uL Normal <0.11 [facility] Comment on above: Order Comment: Speci men Type: BLOOD SPECIMEN [facility] Address: [address] [place] [address] Performed By: #### 2 4321-2, 62944-6, #### [facility] CLIA [id number] [address] [place] Basophils/100 WBC (Bld) 0.7 % Normal A [facility] Comment on above: Order Comment: Speci men Type: BLOOD SPECIMEN [facility] Address: [address] [place] [address] Performed By: #### 2 4321-2, 24669-0, #### [facility] CLIA [id number] [address] [place] Differential cell count method Nom (Bld) Auto Normal [facility] Comment on above: Order Comment: Speci men Type: BLOOD SPECIMEN [facility] Address: [address] [place] [address] Performed By: #### 2 4321-2, 95948-8, #### [facility] CLIA [id number] [address] [place] Eosinophils (Bld) [#/Vol] 10*3/uL Normal <0.46 [facility] Comment on above: Order Comment: Speci men Type: BLOOD SPECIMEN [facility] Address: [address] [place] [address] Performed By: #### 2 4321-2, 36164-9, #### [facility] CLIA [id number] [address] [place] Eosinophils/100 WBC (Bld) 0.2 % Normal [facility] Comment on above: Order Comment: Speci men Type: BLOOD SPECIMEN [facility] Address: [address] [place] [address] Performed By: #### 2 4321-2, 06726-5, #### [facility] CLIA [id number] [address] [place] Erythrocyte distribution width (RBC) [Ratio] 15.6 % High 11.5-15.0 [facility] Comment on above: Order Comment: Speci men Type: BLOOD SPECIMEN [facility] Address: [address] [place] [address] Performed By: #### 2 4321-2, 05021-7, #### [facility] CLIA [id number] [address] [place] Hematocrit (Bld) [Volume fraction] 37.5 % Normal 36.0-46.0 [facility] Comment on above: Order Comment: Speci men Type: BLOOD SPECIMEN [facility] Address: [address] [place] [address] Performed By: #### 2 4321-2, 82861-0, #### [facility] CLIA [id number] [address] [place] Hemoglobin (Bld) [Mass/Vol] 11.4 g/dL Low 11.5-15.5 [facility] Comment on above: Order Comment: Speci men Type: BLOOD SPECIMEN [facility] Address: [address] [place] [address] Performed By: #### 2 4321-2, 81515-7, #### [facility] CLIA [id number] [address] [place] Immature granulocytes (Bld) [#/Vol] 10*3/uL Normal <0.10 [facility] Comment on above: Order Comment: Speci men Type: BLOOD SPECIMEN [facility] Address: [address] [place] [address] Performed By: #### 2 4321-2, 92406-9, #### [facility] CLIA [id number] [address] [place] Immature granulocytes/100 WBC (Bld) 0.4 % Normal [facility] Comment on above: Order Comment: Speci men Type: BLOOD SPECIMEN [facility] Address: [address] [place] [address] Performed By: #### 2 4321-2, 33598-8, #### [facility] CLIA [id number] [address] [place] Lymphocytes (Bld) [#/Vol] 0.61 10*3/uL Low 1.00-4.00 [facility] Comment on above: Order Comment: Speci men Type: BLOOD SPECIMEN [facility] Address: [address] [place] [address] Performed By: #### 2 4321-2, 93118-5, #### [facility] CLIA [id number] [address] OF [facility] Lymphocytes/100 WBC (Bld) 10.8 % Normal [facility] Comment on above: Order Comment: Speci men Type: BLOOD SPECIMEN [facility] Address: [address] [place] [address] Performed By: #### 2 1-2, 67887-6, #### [facility] CLIA [id number] [address] [place] MCH (RBC) [Entitic mass] 26.2 pg Normal 26.0-34.0 [facility] Comment on above: Order Comment: Speci men Type: BLOOD SPECIMEN [facility] Address: [address] [place] [address] Performed By: #### 2 4321-2, 78467-5, #### [facility] CLIA [id number] [address] [place] MCHC (RBC) [Mass/Vol] 30.4 g/dL Low 30.5-36.0 [facility] Comment on above: Order Comment: Speci men Type: BLOOD SPECIMEN [facility] Address: [address] [place] [address] Performed By: #### 2 4321-2, 65656-5, #### [facility] CLIA [id number] [address] [place] MCV (RBC) [Entitic vol] 86.2 fL Normal 80.0-100.0 [facility] Comment on above: Order Comment: Speci men Type: BLOOD SPECIMEN [facility] Address: [address] [place] [address] Performed By: #### 2 4321-2, 99484-5, #### [facility] CLIA [id number] [address] [place] Monocytes (Bld) [#/Vol] 0.21 10*3/uL Normal <0.87 [facility] Comment on above: Order Comment: Speci men Type: BLOOD SPECIMEN [facility] Address: [address] [place] [address] Performed By: #### 2 4320-2, 77396-3, #### [facility] CLIA [id number] [address] [place] [facility] Monocytes/100 WBC (Bld) 3.7 % Normal A [facility] Comment on above: Order Comment: Speci men Type: BLOOD SPECIMEN [facility] Address: [address] [place] [address] Performed By: #### 2 1-2, 25618-3, #### [facility] CLIA [id number] [address] [place] Neutrophils (Bld) [#/Vol] 4.78 10*3/uL Normal 1.45-7.50 [facility] Comment on above: Order Comment: Speci men Type: BLOOD SPECIMEN [facility] Address: [address] [place] [address] Performed By: #### 2 1-2, 24257-0, #### [facility] CLIA [id number] [address] [place] Neutrophils/100 WBC (Bld) 84.2 % Normal [facility] Comment on above: Order Comment: Speci men Type: BLOOD SPECIMEN [facility] Address: [address] [place] [address] Performed By: #### 2 4321-2, 89283-3, #### [facility] CLIA [id number] [address] [place] Nucleated RBC (Bld) [#/Vol] 10*3/uL Normal <0.01 [facility] Comment on above: Order Comment: Speci men Type: BLOOD SPECIMEN [facility] Address: [address] [place] [address] Performed By: #### 2 1-2, 03405-9, #### [facility] CLIA [id number] [address] OF [facility] Nucleated RBC/100 WBC (Bld) [Ratio] 0.0 /100 WBC Normal [facility] Comment on above: Order Comment: Speci men Type: BLOOD SPECIMEN [facility] Address: [address] [place] [address] Performed By: #### 2 1-2, 49969-6, #### [facility] CLIA [id number] [address] [place] Platelet mean volume (Bld) [Entitic vol] 9.4 fL Normal 9.0-12.7 [facility] Comment on above: Order Comment: Speci men Type: BLOOD SPECIMEN [facility] Address: [address] [place] [address] Performed By: #### 2 1-2, 26743-6, #### [facility] CLIA [id number] [address] [place] [address] [place] Platelets (Bld) [#/Vol] 330 10*3/uL Normal 150-400 [facility] Comment on above: Order Comment: Speci men Type: BLOOD SPECIMEN [facility] Address: [address] [place] [address] Performed By: #### 2 4321-2, 42213-6, 57537-2 #### [facility] CLIA [id number] [address] RBC (Bld) [#/Vol] 4.35 10*6/uL Normal 3.90-5.20 [facility] Comment on above: Order Comment: Speci men Type: BLOOD SPECIMEN [facility] Address: [address] [place] [address] Performed By: #### 2 4321-2, 90692-3, 33925-6 #### [facility] CLIA [id number] [address] OF [facility] WBC (Bld) [#/Vol] 5.67 10*3/uL Normal 3.70-11.00 [facility] Comment on above: Order Comment: Speci men Type: BLOOD SPECIMEN [facility] Address: [address] [place] [address] Performed By: #### 2 4321-2, 84086-1, #### [facility] CLIA [id number] [address] OF [facility] Comprehensive metabolic 2000 panelon 06-10-2024 Albumin [Mass/Vol] 4.2 g/dL Normal 3.9-4.9 [facility] Comment on above: Order Comment: Speci men Type: BLOOD SPECIMENOrdering Facility: [facility] Address: [address] [place] [address] Performed By: #### 3 016-3, 57294-8, 3024-7, 29856-9 ####[facility] LABORATORYCLIA [id number] [address] OF [facility] ALP [Catalytic activity/Vol] 99 U/L Normal 34-123 [facility] Comment on above: Order Comment: Speci men Type: BLOOD SPECIMENOrdering Facility: [facility] Address: [address] [place] [address] Performed By: #### 3 016-3, 95752-7, 3023-7, 22684-0 ####[facility] LABORATORYCLIA [id number] [address] STATES [facility] ALT With P-5'-P [Catalytic activity/Vol] 8 U/L Normal 7-38 [facility] Comment on above: Order Comment: Speci men Type: BLOOD SPECIMENOrdering Facility: [facility] Address: [address] [place] [address] Performed By: #### 3 016-3, 28783-4, 7, 16400-0 ####[facility] LABORATORYCLIA [id number] [address] OF [facility] Anion gap [Moles/Vol] 12 mmol/L Normal 8-15 [facility] Comment on above: Order Comment: Speci men Type: BLOOD SPECIMENOrdering Facility: [facility] Address: [address] [place] [address] Performed By: #### 3 016-3, 97256-0, 7, 56460-4 ####[facility] LABORATORYCLIA [id number] [address] AST With P-5'-P [Catalytic activity/Vol] 12 U/L Low 13-35 [facility] Comment on above: Order Comment: Speci men Type: BLOOD SPECIMENOrdering Facility: [facility] Address: [address] [place] [address] Performed By: #### 3 016-3, 72296-4, 7, 68392-0 ####[facility] LABORATORYCLIA [id number] [place] [id number] [place] [facility] Bilirubin [Mass/Vol] 0.4 mg/dL Normal 0.2-1.3 [facility] Comment on above: Order Comment: Speci men Type: BLOOD SPECIMENOrdering Facility: [facility] Address: [address] [place] [address] Performed By: #### 3 016-3, 51233-4, 7, 76549-5 ####[facility] LABORATORYCLIA [id number] [place] [address] [place] Calcium [Mass/Vol] 9.5 mg/dL Normal 8.5-10.2 [facility] Comment on above: Order Comment: Speci men Type: BLOOD SPECIMENOrdering Facility: [facility] Address: [address] [place] [address] Performed By: #### 3 016-3, 52464-7, 3024-01, 67933-7 ####[facility] LABORATORYCLIA [id number] [place] [address] [place] Chloride [Moles/Vol] 101 mmol/L Normal 98-107 [facility] Comment on above: Order Comment: Speci men Type: BLOOD SPECIMENOrdering Facility: [facility] Address: [address] [place] [address] Performed By: #### 3 016-3, 99110-6, 3024-01, ####[facility] LABORATORYCLIA [id number] [place] [address] [place] CO2 [Moles/Vol] 23 mmol/L Normal 22-30 [facility] Comment on above: Order Comment: Speci men Type: BLOOD SPECIMENOrdering Facility: [facility] Address: [address] [place] [address] Performed By: #### 3 016-3, 86217-5, 7, 03179-3 ####[facility] LABORATORYCLIA [id number] [place] [address] [place] Creatinine [Mass/Vol] 0.87 mg/dL Normal 0.58-0.96 [facility] Comment on above: Order Comment: Speci men Type: BLOOD SPECIMENOrdering Facility: [facility] Address: [address] [place] [address] Performed By: #### 3 016-3, 61015-0, 7, 68928-5 ####[facility] LABORATORYCLIA [id number] [place] [address] [place] Creatinine and Glomerular filtration rate.predicted panel (S/P/Bld) 66 mL/min/1.73m??? Normal >=60 [facility] Comment on above: Order Comment: Rhina mason Type: BLOOD SPECIMENOrdering Facility: [facility] Address: [address] [place] [address] Result Comment: Isa mated Glomerular Filtration Rate [...] actual GFR. Performed By: #### 3 016-3, 55049-8, 302-7, 17448-8 ####[facility] LABORATORYCLIA [id number] [place] [address] [place] Glucose [Mass/Vol] 157 mg/dL High 74-99 [facility] Comment on above: Order Comment: Rhina mason Type: BLOOD SPECIMENOrdering Facility: [facility] Address: [address] [place] [address] Result Comment: The [place] Diabetes Association (ADA) provides guidance for cutoff [...] Standards of Medical Care in Diabetes 2016, [place] Diabetes Association. Diabetes Care. 2016.39(Suppl 1). Performed By: #### 3 016-3, 60633-8, 3024-7, 12680-9 ####[facility] LABORATORYCLIA [id number] [place] [address] [place] Potassium [Moles/Vol] 4.3 mmol/L Normal 3.7-5.1 [facility] Comment on above: Order Comment: Speci men Type: BLOOD SPECIMENOrdering Facility: [facility] Address: [address] [place] [address] Performed By: #### 3 016-3, 54131-0, 3024-7, 45765-3 ####[facility] LABORATORYCLIA [id number] [address] STATES [facility] Protein [Mass/Vol] 7.1 g/dL Normal 6.3-8.0 [facility] Comment on above: Order Comment: Speci men Type: BLOOD SPECIMENOrdering Facility: [facility] Address: [address] [place] [address] Performed By: #### 3 016-3, 77345-1, 302-7, 59864-4 ####[facility] LABORATORYCLIA [id number] [address] Sodium [Moles/Vol] 136 mmol/L Normal 136-144 [facility] Comment on above: Order Comment: Speci men Type: BLOOD SPECIMENOrdering Facility: [facility] Address: [address] [place] [address] Performed By: #### 3 016-3, 71513-5, 3027, 36917-6 ####[facility] LABORATORYCLIA [id number] [address] STATES [facility] Urea nitrogen [Mass/Vol] 14 mg/dL Normal 7-21 [facility] Comment on above: Order Comment: Speci men Type: BLOOD SPECIMENOrdering Facility: [facility] Address: [address] [place] [address] Performed By: #### 3 016-3, 64991-4, 3023-7, 63188-1 ####[facility] LABORATORYCLIA [id number] [address] [place] ECG COMPLETEon 06-10-2024 ECG COMPLETE Ventricular Rate : 6 4 BPM QRS Duration : 90 ms Q-T Interval : 424 ms QTC Calculation(Bazett) : 437 ms Calculated R Butler : 56 degrees Calculated T Butler : 20 degrees ATRIAL FIBRILLATION ABNORMAL ECG NO PREVIOUS ECGS AVAILABLE Confirmed by SAKINA MELLO MD ([id number]) on 12/07/2024 10:44:28 PM NAME : MEL GUADARRAMA PID : [id number] : 1940 Gender : Female Race : ORD : [id number] Procedure Date : Jun 10 2024 23:35:14 Edit Date : Dec 07 2024 22:44:32 Diagnosis: ATRIAL FIBRILLATION ABNORMAL ECG NO PREVIOUS ECGS AVAILABLE Confirmed by SAKINA MELLO MD ([id number]) on 12/07/2024 10:44:28 PM Test Reason : Chest Pain Location : 4 : [facility] EM Overread By : SAKINA MELLO MD Edited By : SAKINA MELLO MD Referred By : , Acquired by : REGAN RODRIGES [facility] ED NOTEon 06-10-2024 ED NOTE HNO ID: [id number] Author: DAMARIS HERNANDEZ RN Service: ? Author Type: Registered Nurse Type: ED Notes Filed: 06/10/2024 23:06 Note Text: Bed: 36-ED Expected date: Expected time: Means of arrival: Comments: RAMESH [facility] ED PROV NOTEon 06-10-2024 ED PROV NOTE HNO ID: [id number] Author: THOMAS SERNA MD Service: Emergency Medicine [...] head to the left or right the Berwind-Hallpike. No nystagmus noted vertical or lateral The [...] nausea vomiting. THOMAS SERNA 06/11/24 0519 Normal [facility] ED PROV NOTE HNO ID: [id number] Author: THOMAS SERNA MD Service: Emergency Medicine [...] Labs Ord (more content not included)... Normal [facility] HIGH SENSITIVITY TROPONIN T (INITIAL)on 06-10-2024 Troponin T.cardiac High sensitivity method [Mass/Vol] 14 ng/L High <12 [facility] Comment on above: Order Comment: Rhina mason Type: BLOOD SPECIMENOrdering Facility: [facility] Address: [address] [place] [address] Performed By: #### L [id number] ####[facility] LABORATORYCLIA [id number] [address] [place] [facility] HbA1c (Bld)on 06-10-2024 Average glucose Estimated from glycated hemoglobin (Bld) [Mass/Vol] 120 mg/dL Normal [facility] Comment on above: Order Comment: Rhina mason Type: BLOOD SPECIMEN [facility] Address: [address] [place] [address] Result Comment: eAG: (Estimated average glucose) is a calculated value from HgbA1c and is automotive sales representative of the average blood glucose level in the last 2-3 month period. Performed By: #### 2 4321-2, 94888-4, #### [facility] CLIA [id number] [address] [place] [facility] HbA1c (Bld) [Mass fraction] 5.8 % High 4.3-5.6 [facility] Comment on above: Order Comment: Rhina mason Type: BLOOD SPECIMEN [facility] Address: [address] [place] [address] Result Comment: Amer [place] Diabetes Association guidelines indicate that patients with HgbA1c in the range 5.7-6.4% are at increased risk for development of diabetes, and intervention by lifestyle modification may be beneficial. HgbA1c greater or equal to 6.5% is considered diagnostic of diabetes. Performed By: #### 2 4321-2, 82993-7, #### [facility] CLIA [id number] [address] [place] Lipid 1996 panelon 4 Cholesterol [Mass/Vol] 227 mg/dL High <200 [facility] Comment on above: Order Comment: Speci men Type: BLOOD SPECIMENOrdering Facility: [facility] Address: [address] [place] [address] Result Comment: <200 mg/dL, Desirable 200-239 mg/dL, Borderline high >239 mg/dL, High Performed By: #### 3 016-3, 66792-0, 3023-7, 49903-4 ####[facility] LABORATORYCLIA [id number] [address] [place] Cholesterol in HDL [Mass/Vol] 78 mg/dL Normal >39 [facility] Comment on above: Order Comment: Speci men Type: BLOOD SPECIMENOrdering Facility: [facility] Address: [address] [place] [address] Result Comment: 40-5 9 mg/dL, Acceptable >59 mg/dL, High: Negative risk factor for coronary heart disease <40 mg/dL, Low: Positive risk factor for coronary heart disease Performed By: #### 3 016-3, 94167-6, 3023-7, 72337-9 ####[facility] LABORATORYCLIA [id number] [address] [place] [facility] Cholesterol in LDL [Mass/Vol] 139 mg/dL High <100 [facility] Comment on above: Order Comment: Speci men Type: BLOOD SPECIMENOrdering Facility: [facility] Address: [address] [place] [address] Result Comment: <100 mg/dL, Optimal 100-129 mg/dL, Near optimal/above optimal 130-159 mg/dL, Borderline high 160-189 mg/dL, High >189 mg/dL, Very high Secondary prevention optimal LDL Cholesterol levels are recommended to be < 70 mg/dL Performed By: #### 3 016-3, 88502-7, 3024-7, 39097-3 ####[facility] LABORATORYCLIA [id number] [address] [place] Cholesterol in LDL/Cholesterol in HDL [Mass ratio] 1.78 {ratio} Normal <2.54 [facility] Comment on above: Order Comment: Rhina mason Type: BLOOD SPECIMENOrdering Facility: [facility] Address: [address] [place] [address] Result Comment: Brii nath: 1. National Cholesterol Education Program ATP III Guideline At-A-Glance Quick Desk Reference: National Heart, Lung, and Blood [place]. National Institutes of Health. 2001: NIH Publication No. [id number]. 2. An International Atherosclerosis Society position paper: global recommendations for the management of dyslipidemia: executive summary, Atherosclerosis. 2014: 232(2):410-413. Performed By: #### 3 016-3, 81134-8, 7, 00779-9 ####[facility] LABORATORYCLIA [id number] [place] [address] [place] Cholesterol in VLDL [Mass/Vol] 10 mg/dL Normal <30 [facility] Comment on above: Order Comment: Samirrobson mason Type: BLOOD SPECIMENOrdering Facility: [facility] Address: [address] [place] [address] Performed By: #### 3 016-3, 91757-3, 7, 14828-3 ####[facility] LABORATORYCLIA [id number] [address] [place] Cholesterol non HDL [Mass/Vol] 149 mg/dL High <130 [facility] Comment on above: Order Comment: Rhina mason Type: BLOOD SPECIMENOrdering Facility: [facility] Address: [address] [place] [address] Result Comment: <130 mg/dL, Optimal 130-159 mg/dL, Near optimal/above optimal 160-189 mg/dL, Borderline high 190-219 mg/dL, High >219 mg/dL, Very high Secondary prevention optimal non HDL Cholesterol levels are recommended to be <100 mg/dL Performed By: #### 3 016-3, 03108-8, 3024-7, 00875-5 ####[facility] LABORATORYCLIA [id number] [address] [place] Cholesterol.total/Pastora sterol in HDL [Mass ratio] 2.91 {ratio} Normal <5.10 [facility] Comment on above: Order Comment: Rhina mason Type: BLOOD SPECIMENOrdering Facility: [facility] Address: [address] [place] [address] Performed By: #### 3 016-3, 08039-2, 3024-7, 39148-8 ####[facility] LABORATORYCLIA [id number] [address] FASTING TIME Normal [facility] Comment on above: Order Comment: Rhina mason Type: BLOOD SPECIMENOrdering Facility: [facility] Address: [address] [place] [address] Result Comment: Unkn own Performed By: #### 3 016-3, 83072-3, 7, 96363-8 ####[facility] LABORATORYCLIA [id number] [address] Triglyceride [Mass/Vol] 49 mg/dL Normal <150 [facility] Comment on above: Order Comment: Rhina mason Type: BLOOD SPECIMENOrdering Facility: [facility] Address: [address] [place] [address] Result Comment: <150 mg/dL, Normal 150-199 mg/dL, Borderline high 200-499 mg/dL, High >499 mg/dL, Very high Performed By: #### 3 016-3, 20868-4, 3024-7, 98685-9 ####[facility] LABORATORYCLIA [id number] [address] [facility] PT panel Coag (PPP)on 2023 INR Coag (PPP) [Relative time] 1.3 {INR} Normal 0.9-1.3 [facility] Comment on above: Order Comment: Samirrobson mason Type: BLOOD SPECIMENOrdering Facility: [facility] Address: [address] [place] [address] Result Comment: Mayra min K Antagonist (VKA) Therapeutic Range: INR 2 to 3 (Target INR of 2.5) Note: For patients treated with VKA drugs, such as warfarin, the [employer] 2012 Guideline recommends [...] Chest 2012, 141:7S-47S Daren RA, et al. [facility] 2017, 70: 252-289 Performed By: #### 3 4528-0 ####[facility] LABORATORYCLIA [id number] [place] [address] [place] PT Coag (PPP) [Time] 13.2 s High 9.7-13.0 [facility] Comment on above: Order Comment: Speci men Type: BLOOD SPECIMENOrdering Facility: [facility] Address: [address] [place] [address] Performed By: #### 3 4528-0 ####[facility] CARMELCLIA [id number] [address] [place] T4 Free SerPl-mCncon 024 Free T4 [Mass/Vol] 1.3 ng/dL Normal 0.9-1.7 [facility] Comment on above: Order Comment: Speci men Type: BLOOD SPECIMENOrdering Facility: [facility] Address: [address] [place] [address] Performed By: #### 3 016-3, 72244-2, 3024-7, 56801-6 ####[facility] LABORATORYCLIA [id number] [place] [address] [place] TSH SerPl-aCncon 06-10-2024 TSH Qn 1.620 m[IU]/L Normal 0.270-4.200 [facility] Comment on above: Order Comment: Speci men Type: BLOOD SPECIMENOrdering Facility: [facility] Address: [address] [id number] Performed By: #### 3 016-3, 33474-0, 3024-7, 90740-7 ####[facility] LABORATORYCLIA [id number] [place] [address] [place] 36on 06-04-2024 36 Normal [facility] 36on 06-01-2024 36 Normal [facility] Progress Noteon 05-22-2024 Progress Note Normal [facility] PT Coag (Bld) [Time]on 05-21 INR Coag (PPP) [Relative time] 2.8 {INR} Abnormal 0.9 - 1.1 [facility] Interpretation and review of laboratory results Abnormal [facility] Progress Noteon 05-21-2024 Progress Note Normal [facility] Progress Note INR reported on yoan y Christin with [facility]. Christin can be reached at [phone] with questions. Normal [facility] Protime-INRon 05-21-2024 PT Coag (Bld) [Time] 33.9 s Abnormal 9.0 - 12.0 [facility] Heart TransthoracicOrdere d By: Davian Landrum on 05-14-2024 Ao Root Index 1.63 cm/m2 [facility] Work Phone: [phone] Aortic Arch 2.6 cm [facility] Work Phone: Aortic Root 2.8 cm [facility] Work Phone: Aortic Sinus Valsalva 2.8 cm [facility] Work Phone: Aortic Sinus Valsalva Index 1.63 cm/m2 [facility] Work Phone: Ascending Aorta 2.7 cm [facility] Work Phone: Ascending Aorta Index 1.57 cm/m2 [facility] Work Phone: AV Area by Peak Velocity 1.4 cm2 [facility] Work Phone: AV Area by VTI 1.4 cm2 [facility] Work Phone: AV Mean Gradient 3 mmHg [facility] Work Phone: AV Mean Velocity 0.9 m/s [facility] Work Phone: AV Peak Gradient 7 mmHg [facility] Work Phone: AV Peak Velocity 1.3 m/s [facility] Work Phone: AV Velocity Ratio 0.62 [facility] Work Phone: AV VTI 30 cm [facility] Work Phone: POLA/BSA Peak Velocity 0.8 cm2/m2 [facility] Work Phone: POLA/BSA VTI 0.8 cm2/m2 [facility] Work Phone: E/E' Lateral 14 [facility] Work Phone: E/E' Ratio (Averaged) 18 [facility] Work Phone: E/E' Septal 22 [facility] Work Phone: [phone] EF BP 61 % 55 - 100 % [facility] Work Phone: [phone] Est. RA Pressure 3 mmHg [facility] Work Phone: Fractional Shortening 2D 30 % 28 - 44 % [facility] Work Phone: [phone] Global Longitudinal Strain -15.3 % [facility] [employer] Work Phone: [phone] Interpretation and review of laboratory results Abnormal [facility] Work Phone: [phone] IVC Diameter 1.8 cm [facility] Work Phone: [phone] IVSd 1 cm Abnormal 0.6 - 0.9 cm [facility] Work Phone: [phone] LA Diameter 4.1 cm [facility] Work Phone: [phone] LA Size Index 2.38 cm/m2 [facility] [employer] Work Phone: [phone] LA Volume 2C 63 mL Abnormal 22 - 52 mL [facility] Work Phone: [phone] LA Volume 4C 80 mL Abnormal 22 - 52 mL [facility] Work Phone: LA Volume A/L 76 mL [facility] Healt h Work Phone: LA Volume BP 72 mL Abnormal 22 - 52 mL [facility] Work Phone: [phone] LA Volume Index 2C 37 mL/m2 Abnormal 16 - 34 mL/m2 [facility] Work Phone: LA Volume Index 4C 47 mL/m2 Abnormal 16 - 34 mL/m2 [facility] Work Phone: LA Volume Index A/L 44 mL/m2 16 - 34 mL/m2 [facility] Work Phone: LA Volume Index BP 42 ml/m2 Abnormal 16 - 34 ml/m2 [facility] Work Phone: LA/AO Root Ratio 1.46 [facility] Work Phone: LV E' Lateral Velocity 11 cm/s [facility] Work Phone: LV E' Septal Velocity 7 cm/s [facility] Work Phone: LV EDV A2C 45 mL [facility] Work Phone: LV EDV A4C 48 mL [facility] Work Phone: LV EDV BP 47 mL Abnormal 56 - 104 mL [facility] Work Phone: LV EDV Index A2C 26 mL/m2 [facility] Work Phone: LV EDV Index A4C 28 mL/m2 [facility] Work Phone: LV EDV Index BP 27 mL/m2 [facility] Work Phone: LV Ejection Fraction A2C 68 % [facility] Work Phone: LV Ejection Fraction A4C 55 % [facility] Work Phone: LV ESV A2C 14 mL [facility] Work Phone: LV ESV A4C 21 mL [facility] Work Phone: LV ESV BP 18 mL Abnormal 19 - 49 mL [facility] Work Phone: LV ESV Index A2C 8 mL/m2 [facility] Work Phone: LV ESV Index A4C 12 mL/m2 [facility] Work Phone: [phone] LV ESV Index BP 10 mL/m2 [facility] Hea lt Work Phone: [phone] LV Mass 2D 142.5 g 67 - 162 g [facility] [employer] Work Phone: [phone] LV Mass 2D Index 82.8 g/m2 43 - 95 g/m2 [facility] [employer] Work Phone: [phone] LV RWT Ratio 0.47 [facility] [employer] Work Phone: [phone] LVIDd 4.3 cm 3.9 - 5.3 cm [facility] [employer] Work Phone: [phone] LVIDd Index 2.5 cm/m2 [facility] [employer] Work Phone: [phone] LVIDs 3 cm [facility] [employer] Work Phone: [phone] LVIDs Index 1.74 cm/m2 [facility] [employer] Work Phone: [phone] LVOT Area 2.5 cm2 [facility] [employer] Work Phone: [phone] LVOT Cardiac Output 3.2 liter/mi nut e [facility] [employer] Work Phone: [phone] LVOT Diameter 1.8 cm [facility] [employer] Work Phone: [phone] LVOT Mean Gradient 1 mmHg [facility] [employer] Work Phone: [phone] LVOT Peak Gradient 2 mmHg [facility] [employer] Work Phone: [phone] LVOT Peak Velocity 0.8 m/s [facility] [employer] Work Phone: [phone] Stroke Volume Index 25.1 mL/m2 [facility] [employer] Work Phone: [phone] LVOT SV 43.2 ml [facility] [employer] Work Phone: [phone] LVOT VTI 17 cm [facility] [employer] Work Phone: [phone] LVOT:AV VTI Index 0.57 [facility] ealth Work Phone: [phone] LVPWd 1 cm Abnormal 0.6 - 0.9 cm [facility] [employer] Work Phone: [phone] MV A Velocity 0.41 m/s [facility] Healt h Work Phone: MV Area by [...] alth Work Phone: MV PHT 66.9 ms [facility] Work Phone: MV VTI 35.1 cm [facility] Work Phone: MV:LVOT VTI Index 2.06 [facility] Work Phone: [phone] RA Area 4C 55.1 mL [facility] Work Phone: RV Basal Dimension 2.7 cm [facility] Work Phone: [phone] RV Free Wall Peak S' 11 cm/s [facility] Work Phone: RV Longitudinal Dimension 4.9 cm [facility] Work Phone: RV Mid Dimension 2.1 cm [facility] Work Phone: RVSP 54 mmHg [facility] Work Phone: Sinotubular Junction 2.7 cm [facility] Work Phone: TAPSE 1.5 cm Abnormal 1.7 cm [facility] Work Phone: TR Max Velocity 3.56 m/s [facility] Work Phone: TR Peak Gradient 51 mmHg [facility] Work Phone: TR Peak Velocity PISA 3.6 m/s [facility] [employer] Work Phone: [phone] TR VTI 120.8 cm [facility] [employer] Work Phone: [phone] TV EROA 0.2 cm2 [facility] [employer] Work Phone: [phone] TV Nyquist Velocity 39 cm/s [facility] [employer] Work Phone: [phone] [facility] [employer] Phone: [place] Heart Transthoracicon There is a [...] notified the ordering physician of the findings. [facility] PT Coag (Bld) [Time]on 05-09 INR Coag (PPP) [Relative time] 2.7 {INR} Abnormal 0.9 - 1.1 [facility] Interpretation and review of laboratory results Abnormal [facility] Progress Noteon 05-09-2024 Progress Note Graciela from [facility] call ed in results. Normal [facility] Progress Note Normal [facility] Protime-INRon 05-09-2024 PT Coag (Bld) [Time] 32.1 s Abnormal 9.0 - 12.0 [facility] PT Coag (Bld) [Time]on 05-01 INR Coag (PPP) [Relative time] 2.7 {INR} Abnormal 0.9 - 1.1 [facility] Interpretation and review of laboratory results Abnormal [facility] Progress Noteon 05-01-2024 Progress Note Normal [facility] Progress Note Tia- [facility]- [phone] Normal [facility] Protime-INRon 05-01-2024 PT Coag (Bld) [Time] 32.4 s Abnormal 9.0 - 12.0 [facility] 36on 04-27-2024 36 Pt requested refill on warfarin 5mg. Sent to [facility]. Receipt confirmed by pharmacy. Normal [facility] Progress Noteon 04-27-2024 Progress Note Normal [facility] Progress Note Tia- [facility]- [phone] Normal [facility] Progress Noteon 04-25-2024 Progress Note Normal [facility] Progress Noteon 04-23-2024 Progress Note Normal [facility] Progress Note Christin [facility] called any questions or concerns [phone]. Normal [facility] PT Coag (Bld) [Time]on 04-19 INR Coag (PPP) [Relative time] 2.1 {INR} Abnormal 0.9 - 1.1 [facility] Interpretation and review of laboratory results Abnormal [facility] Progress Noteon 04-19-2024 Progress Note Normal [facility] Progress Note Graciela with [facility] repo rts INR on vm Graciela can be reached at [phone] with any questions. Normal [facility] Protime-INRon 04-19-2024 PT Coag (Bld) [Time] 24.9 s Abnormal 9.0 - 12.0 [facility] Progress Noteon 04-16-2024 Progress Note Christin- [facility]- [phone] Normal [facility] Progress Note Normal [facility] Progress Noteon 04-14-2024 Progress Note Placed new order for POCT INR, [facility] had not received. Normal [facility] [id number] 04-13-2024 [id number] Normal [facility] APTTon 04-13-2024 aPTT Coag (Bld) [Time] 132.2 s Critically high 20.0-30. 5 [facility] Comment on above: Result Comment: BUBBA Garcia COMMENTS:NOTE: The therapeutic time for Heparin anticoagulation, based on Xa activity inhibition, is an APTT of 46-80 seconds. Performed By: #### L [id number], [id number] ####Gas Shovel Operator: VELMA VALADEZ ([phone])[facility])[address] [place] [address] BASIC METABOLIC PANELon 09-2 Anion gap [Moles/Vol] 2 mmol/L Low 3-13 [facility] Comment on above: Performed By: #### L AB15 ####Gas Shovel Operator: VELMA VALADEZ ([phone])[facility] ([facility])[address] [place] [address] Calcium [Mass/Vol] 9.0 mg/dL Normal 8.4-10.4 [facility] Comment on above: Performed By: #### L AB15 ####Gas Shovel Operator: VELMA VALADEZ ([phone])[facility] ([facility])[address] [place] [address] [place] Chloride [Moles/Vol] 108 mmol/L High 98-107 [facility] Comment on above: Performed By: #### L AB15 ####Gas Shovel Operator: VELMA VALADEZ ([phone])[facility])[address] [place] [address] CO2 [Moles/Vol] 25 mmol/L Normal 22-30 [facility] Comment on above: Performed By: #### L AB15 ####Gas Shovel Operator: VELMA VALADEZ ([phone])[facility])[address] [place] [address] Creatinine [Mass/Vol] 1.00 mg/dL Normal 0.52-1.04 [facility] Comment on above: Performed By: #### L AB15 ####[employer] Operator: VELMA VALADEZ ([phone])[facility])[address] [place] [address] GLOMERULAR FILTRATION RATE ML/MIN/1.73 SQ M.PREDICTED 55.7 mL/min/1.73m*2 Low >60.0 [facility] Comment on above: Result Comment: Calc ulation based on the Chronic Kidney Disease Epidemiology Collaboration (CKD-EPI) equation refit without adjustment for race Performed By: #### L AB15 ####Gas Shovel Operator: VELMA VALADEZ ([phone])[facility])[address] [place] [address] Glucose [Mass/Vol] 98 mg/dL Normal 70-100 [facility] Comment on above: Performed By: #### L AB15 ####Gas Sho[employer] Operator: VELMA VALADEZ ([phone])[facility])[address] [place] [address] Potassium [Moles/Vol] 4.3 mmol/L Normal 3.5-5.1 [facility] Comment on above: Performed By: #### L AB15 ####Gas Shovel Operator: VELMA VALADEZ ([phone])[facility])[address] [place] [address] Sodium [Moles/Vol] 135 mmol/L Normal 135-145 [facility] Comment on above: Performed By: #### L AB15 ####Gas Shovel Operator: VELMA VALADEZ ([phone])[facility] ([facility])[address] [place] [address] Urea nitrogen [Mass/Vol] 18 mg/dL High 7-17 [facility] Comment on above: Performed By: #### L AB15 ####Gas Shovel Operator: VELMA VALADEZ ([phone])[facility])[address] [place] [address] Basic metabolic 1998 panelon 04-13-2024 Anion gap [Moles/Vol] 2 mmol/L Low 3 - 13 mmol/L [facility] Calcium [Mass/Vol] 9.0 mg/dL 8.4 - 10. 4 mg/dL [facility] Chloride [Moles/Vol] 108 mmol/L High 98 - 10 7 mmol/L [facility] CO2 [Moles/Vol] 25 mmol/L 22 - 30 mmol/L [facility] Creatinine [Mass/Vol] 1.00 mg/dL 0.52 - 1.04 mg/dL [facility] GFR/1.73 sq M.predicted (S/P/Bld) [Vol rate/Area] 55.7 mL/min Low - PINF [facility] Comment on above: Calculation based on the Chronic Kidney Disease Epidemiology Collaboration (CKD-EPI) equation refit without adjustment for race Glucose [Mass/Vol] 98 mg/dL 70 - 100 mg/dL [facility] Interpretation and review of laboratory results Abnormal [facility] Potassium [Moles/Vol] 4.3 mmol/L 3.5 - 5.1 mmol/L [facility] Sodium [Moles/Vol] 135 mmol/L 135 - 145 mmol/L [facility] Urea nitrogen [Mass/Vol] 18 mg/dL High 7 - 17 mg/dL [facility] CARECOORDon 04-13-2024 CARECOORD Normal [facility] Normal [facility] CBC W Auto Differential pane l (Bld)on 04-13-2024 Basophils (Bld) [#/Vol] 0.0 10*3/uL 0.0 - 0.2 10*3/uL [facility] Basophils/100 WBC (Bld) 0.7 % 0.0 - 2.0 % [facility] Eosinophils (Bld) [#/Vol] 0.1 10*3/uL 0.0 - 0.5 10*3/uL [facility] Eosinophils/100 WBC (Bld) 2.6 % 0.0 - 6.0 % [facility] Erythrocyte distribution width (RBC) [Ratio] 14.5 % 11.5 - 15.0 % [facility] Hematocrit (Bld) [Volume fraction] 26.3 % Low 35.0 - 47.0 % [facility] Hemoglobin (Bld) [Mass/Vol] 8.6 g/dL Low 11.7 - 16.0 g/dL [facility] Immature granulocytes (Bld) [#/Vol] 0.0 10*3/uL NINF - 0.1 10*3/uL [facility] Immature granulocytes/100 WBC (Bld) 0.2 % 0.0 - 2.0 % [facility] Interpretation and review of laboratory results Abnormal [facility] Lymphocytes (Bld) [#/Vol] 1.4 10*3/uL 1.0 - 4.3 10*3/uL [facility] Lymphocytes/100 WBC (Bld) 33.5 % 15.0 - 45.0 % [facility] MCH (RBC) [Entitic mass] 29.8 pg 26.0 - 34.0 pg [facility] MCHC (RBC) [Mass/Vol] 32.7 % 30.5 - 36.0 % [facility] MCV (RBC) [Entitic vol] 91.0 fL 77.0 - 99.0 fL [facility] Monocytes (Bld) [#/Vol] 0.5 10*3/uL 0.0 - 0.9 10*3/uL [facility] Monocytes/100 WBC (Bld) 11.3 % 5.0 - 13.0 % [facility] Neutrophils (Bld) [#/Vol] 2.2 10*3/uL 1.8 - 7.5 10*3/uL [facility] Neutrophils/100 WBC (Bld) 51.7 % 38.0 - 82.0 % [facility] Nucleated RBC/100 WBC (Bld) [Ratio] 0.0 % [facility] Platelet mean volume (Bld) [Entitic vol] 9.4 fL 9.0 - 12.7 fL [facility] Platelets (Bld) [#/Vol] 317 10*3/uL 140 - 440 10*3/uL [facility] RBC (Bld) [#/Vol] 2.89 10*6/uL Low 3.80 - 5.2 0 10*6/uL [facility] WBC (Bld) [#/Vol] 4.2 10*3/uL 3.6 - 10.7 10*3/uL [facility] CBC WITH AUTO DIFFERENTIALon 04-13-2024 Basophils (Bld) [#/Vol] 0.0 10*3/uL Normal 0.0-0.2 [facility] Comment on above: Performed By: #### L [id number] ####Gas Shovel Operator: VELMA VALADEZ ([phone])[facility])[address] [place] [address] Basophils/100 WBC (Bld) 0.7 % Normal 0.0-2.0 S [facility] Comment on above: Performed By: #### L [id number] ####Gas Shovel Operator: VELMA VALADEZ ([phone])[facility] ([facility])[address] [place] [address] Eosinophils (Bld) [#/Vol] 0.1 10*3/uL Normal 0.0-0.5 [facility] Comment on above: Performed By: #### L [id number] ####[employer] Operator: VELMA VALADEZ ([phone])[facility])[address] [place] [address] Eosinophils/100 WBC (Bld) 2.6 % Normal 0.0-6.0 [facility] Comment on above: Performed By: #### L [id number] ####[employer] Sho[employer] Operator: VELMA VALADEZ ([phone])[facility] ([facility])[address] [place] [address] Erythrocyte distribution width (RBC) [Ratio] 14.5 % Normal 11.5-15.0 [facility] Comment on above: Performed By: #### L [id number] ####[employer] Operator: VELMA VALADEZ ([id number])[facility])[address] [place] [address] Hematocrit (Bld) [Volume fraction] 26.3 % Low 35.0-47.0 [facility] Comment on above: Performed By: #### L [id number] ####[employer] Operator: VELMA AVLADEZ ([phone])[facility])[address] [place] [address] Hemoglobin (Bld) [Mass/Vol] 8.6 g/dL Low 11.7-16.0 [facility] Comment on above: Performed By: #### L [id number] ####[employer] Operator: VELMA VALADEZ ([phone])[facility] HOSPITAL ([facility])[address] [place] [address] IMMATURE GRANS % 0.2 % Normal 0.0-2.0 [facility] Comment on above: Performed By: #### L [id number] ####Gas Shovel Operator: VELMA VALADEZ ([phone])[facility])[address] [place] [address] IMMATURE GRANS ABSOLUTE 0.0 10*3/uL Normal <0.1 [facility] Comment on above: Performed By: #### L [id number] ####Gas Shovel Operator: VELMA VALADEZ ([phone])[facility])[address] [place] [address] Lymphocytes (Bld) [#/Vol] 1.4 10*3/uL Normal 1.0-4.3 [facility] Comment on above: Performed By: #### L [id number] ####Gas Shovel Operator: VELMA VALADEZ ([phone])[facility])[address] [place] [address] Lymphocytes/100 WBC (Bld) 33.5 % Normal 15.0-45.0 [facility] Comment on above: Performed By: #### L [id number] ####Gas Shovel Operator: VELMA VALADEZ ([phone])[facility])[address] [place] [address] MCH (RBC) [Entitic mass] 29.8 pg Normal 26.0-34.0 [facility] Comment on above: Performed By: #### L [id number] ####Gas Shovel Operator: VELMA VALADEZ ([phone])[facility])[address] [place] [address] MCHC 32.7 % Normal 30.5-36.0 [facility] Comment on above: Performed By: #### L [id number] ####Gas Shovel Operator: VELMA VALADEZ ([phone])[facility])[address] [place] [address] MCV (RBC) [Entitic vol] 91.0 fL Normal 77.0-99.0 S [facility] Comment on above: Performed By: #### L [id number] ####Gas Shovel Operator: VEMLA VALADEZ ([phone])[facility])[address] [place] [address] Monocytes (Bld) [#/Vol] 0.5 10*3/uL Normal 0.0-0.9 [facility] Comment on above: Performed By: #### L [id number] ####Gas Shovel Operator: VELMA VALADEZ ([phone])[facility])[address] [place] [address] Monocytes/100 WBC (Bld) 11.3 % Normal 5.0-13.0 [facility] Comment on above: Performed By: #### L [id number] ####Gas Shovel Operator: VELMA VALADEZ ([phone])[facility])[address] [place] [address] NEUTROPHILS ABSOLUTE 2.2 10*3/uL Normal 1.8-7.5 [facility] Comment on above: Performed By: #### L [id number] ####Gas Shovel Operator: VELMA VALADEZ ([phone])[facility])[address] [place] [address] Neutrophils/100 WBC (Bld) 51.7 % Normal 38.0-82.0 [facility] Comment on above: Performed By: #### L [id number] ####Gas Shovel Operator: VELMA VALADEZ ([phone])[facility])[address] [place] [address] NRBC 0.0 /100 WBCs Normal 0.0-2.0 [facility] Comment on above: Performed By: #### L [id number] ####Gas Shovel Operator: VELMA VALADEZ ([phone])[facility])[address] [place] [address] Platelet mean volume (Bld) [Entitic vol] 9.4 fL Normal 9.0-12.7 [facility] Comment on above: Performed By: #### L [id number] ####Gas Shovel Operator: VELMA VALADEZ ([phone])[facility])[address] [place] [address] Platelets (Bld) [#/Vol] 317 10*3/uL Normal 140-440 [facility] Comment on above: Performed By: #### L [id number] ####Gas Shovel Operator: VELMA VALADEZ ([phone])[facility])[address] [place] [address] RBC (Bld) [#/Vol] 2.89 10*6/uL Low 3.80-5.20 [facility] Comment on above: Performed By: #### L [id number] ####Gas Shovel Operator: VELMA VALADEZ ([phone])[facility])[address] [place] [address] WBC (Bld) [#/Vol] 4.2 10*3/uL Normal 3.6-10.7 [facility] Comment on above: Performed By: #### L [id number] ####Gas Shovel Operator: VELMA VALADEZ ([phone])[facility])[address] [place] [address] IDNon 04-13-2024 IDN Normal [facility] - Coagulationon 0 04-13-2024 PT Coag (Bld) [Time] 24.2 s High 9.0 - 1 2.0 s [facility] Nursing Noteon 04-13-2024 Nursing Note AVS explained. Discharged patient on stable condition. Normal [facility] Nursing Note Instructed patient o n warfarin dosing, she will take 7.5mg tomorrow, and 5mg Tuesday, and then we will check INR with home care on Tuesday as instructed. Normal [facility] PROTHROMBIN TIMEon INR Coag (PPP) [Relative time] 2.3 {INR} High 0.9-1.1 [facility] Comment on above: Result Comment: Timothy mmended [...] Myocardial Infarction Performed By: #### [place] [id number], [id number] ####Gas Shovel Operator: VELMA VALADEZ ([phone])[facility] [place] [address] PT Coag (PPP) [Time] 24.2 s High 9.0-12.0 [facility] Comment on above: Performed By: #### [place]on [id number], [id number] ####Gas Shovel Operator: VELMA VALADEZ ([phone])[facility] [place] [address] PT Coag (Bld) [Time]on 04-13 INR Coag (PPP) [Relative time] 2.3 {INR} High 0.9 - 1.1 [facility] Comment on above: Recommended Anticoag ulant Therapy: [...] Interpretation and review of laboratory results Abnormal [facility] Progress Noteon 04-13-2024 Progress Note Normal [facility] Progress Note Normal [facility] Progress Note Normal [facility] aPTT Coag (Bld) [Time]Lissettee d By: Melany Tejeda on 04-13-2024 aPTT Coag (PPP) [Time] 132.2 s Critically high 20 .0 - 30.5 s [facility] Interpretation and review of laboratory results Abnormal [facility] NOTE: The therapeuti c time for Heparin anticoagulation, based on Xa activity inhibition, is an APTT of 46-80 seconds. [facility] BASIC METABOLIC PANELon 03-19 Anion gap [Moles/Vol] 3 mmol/L Normal 3-13 [facility] Comment on above: Performed By: #### L AB15 ####Gas Shovel Operator: VELMA VALADEZ ([phone])[facility])[address] [place] [address] Calcium [Mass/Vol] 9.3 mg/dL Normal 8.4-10.4 [facility] Comment on above: Performed By: #### L AB15 ####Gas Shovel Operator: VELMA VALADEZ ([phone])[facility] ([facility])[address] [place] [address] Chloride [Moles/Vol] 108 mmol/L High 98-107 [facility] Comment on above: Performed By: #### L AB15 ####Gas Shovel Operator: VELMA VALADEZ ([phone])[facility] ([facility])[address] [place] [address] [place] CO2 [Moles/Vol] 24 mmol/L Normal 22-30 [facility] Comment on above: Performed By: #### L AB15 ####Gas Shovel Operator: VELMA VALADEZ ([phone])[facility])[address] [place] [address] Creatinine [Mass/Vol] 0.99 mg/dL Normal 0.52-1.04 [facility] Comment on above: Performed By: #### L AB15 ####Gas Shovel Operator: VELMA [phone])[facility])[address] [place] [address] GLOMERULAR FILTRATION RATE ML/MIN/1.73 SQ M.PREDICTED 56.3 mL/min/1.73m*2 Low >60.0 [facility] Comment on above: Result Comment: Calc ulation based on the Chronic Kidney Disease Epidemiology Collaboration (CKD-EPI) equation refit without adjustment for race Performed By: #### L AB15 ####Gas Shovel Operator: VELMA VALADEZ ([phone])[facility] ([facility])[address] [place] [address] Glucose [Mass/Vol] 101 mg/dL High 70-100 [facility] Comment on above: Performed By: #### L AB15 ####Gas Shovel Operator: VELMA VALADEZ ([phone])[facility])[address] [place] [address] Potassium [Moles/Vol] 3.9 mmol/L Normal 3.5-5.1 [facility] Comment on above: Performed By: #### L AB15 ####Gas Shovel Operator: VELMA VALADEZ ([phone])[facility] ([facility])[address] [place] [address] Sodium [Moles/Vol] 135 mmol/L Normal 135-145 [facility] Comment on above: Performed By: #### L AB15 ####Gas Shovel Operator: VELMA VALADEZ ([phone])[facility])[address] [place] [address] Urea nitrogen [Mass/Vol] 16 mg/dL Normal 7-17 [facility] Comment on above: Performed By: #### L AB15 ####Gas Shovel Operator: VELMA VALADEZ ([phone])[facility])[address] [place] [address] Basic metabolic 1998 panelon 04-12-2024 Anion gap [Moles/Vol] 3 mmol/L 3 - 13 mmol/L [facility] Calcium [Mass/Vol] 9.3 mg/dL 8.4 - 10. 4 mg/dL [facility] Chloride [Moles/Vol] 108 mmol/L High 98 - 10 7 mmol/L [facility] CO2 [Moles/Vol] 24 mmol/L 22 - 30 mmol/L [facility] Creatinine [Mass/Vol] 0.99 mg/dL 0.52 - 1.04 mg/dL [facility] GFR/1.73 sq M.predicted (S/P/Bld) [Vol rate/Area] 56.3 mL/min Low - PINF [facility] Comment on above: Calculation based on the Chronic Kidney Disease Epidemiology Collaboration (CKD-EPI) equation refit without adjustment for race Glucose [Mass/Vol] 101 mg/dL High 70 - 100 mg/dL [facility] Interpretation and review of laboratory results Abnormal [facility] Potassium [Moles/Vol] 3.9 mmol/L 3.5 - 5.1 mmol/L [facility] Sodium [Moles/Vol] 135 mmol/L 135 - 145 mmol/L [facility] Urea nitrogen [Mass/Vol] 16 mg/dL 7 - 17 mg/dL [facility] CARECOORDon 04-12-2024 CARECOORD Normal [facility] CBC W Auto Differential pane l (Bld)on 04-12-2024 Basophils (Bld) [#/Vol] 0.0 10*3/uL 0.0 - 0.2 10*3/uL [facility] Basophils/100 WBC (Bld) 0.5 % 0.0 - 2.0 % [facility] Eosinophils (Bld) [#/Vol] 0.1 10*3/uL 0.0 - 0.5 10*3/uL [facility] Eosinophils/100 WBC (Bld) 2.4 % 0.0 - 6.0 % [facility] Erythrocyte distribution width (RBC) [Ratio] 14.8 % 11.5 - 15.0 % [facility] Hematocrit (Bld) [Volume fraction] 28.3 % Low 35.0 - 47.0 % [facility] Hemoglobin (Bld) [Mass/Vol] 9.3 g/dL Low 11.7 - 16.0 g/dL [facility] Immature granulocytes (Bld) [#/Vol] 0.0 10*3/uL NINF - 0.1 10*3/uL [facility] Immature granulocytes/100 WBC (Bld) 0.2 % 0.0 - 2.0 % [facility] Interpretation and review of laboratory results Abnormal [facility] Lymphocytes (Bld) [#/Vol] 1.4 10*3/uL 1.0 - 4.3 10*3/uL [facility] Lymphocytes/100 WBC (Bld) 33.0 % 15.0 - 45.0 % [facility] MCH (RBC) [Entitic mass] 30.4 pg 26.0 - 34.0 pg [facility] MCHC (RBC) [Mass/Vol] 32.9 % 30.5 - 36.0 % [facility] MCV (RBC) [Entitic vol] 92.5 fL 77.0 - 99.0 fL [facility] Monocytes (Bld) [#/Vol] 0.5 10*3/uL 0.0 - 0.9 10*3/uL [facility] Monocytes/100 WBC (Bld) 11.9 % 5.0 - 13.0 % [facility] Neutrophils (Bld) [#/Vol] 2.1 10*3/uL 1.8 - 7.5 10*3/uL [facility] Neutrophils/100 WBC (Bld) 52.0 % 38.0 - 82.0 % [facility] Nucleated RBC/100 WBC (Bld) [Ratio] 0.0 % [facility] [place] Platelet mean volume (Bld) [Entitic vol] 9.5 fL 9.0 - 12.7 fL [facility] [place] Platelets (Bld) [#/Vol] 307 10*3/uL 140 - 440 10*3/uL [facility] RBC (Bld) [#/Vol] 3.06 10*6/uL Low 3.80 - 5.2 0 10*6/uL [facility] WBC (Bld) [#/Vol] 4.1 10*3/uL 3.6 - 10.7 10*3/uL [facility] CBC WITH AUTO DIFFERENTIALon 04-12-2024 Basophils (Bld) [#/Vol] 0.0 10*3/uL Normal 0.0-0.2 [facility] Comment on above: Performed By: #### L [id number] ####Gas Shovel Operator: VELMA VALADEZ ([phone])[facility] ([address] Basophils/100 WBC (Bld) 0.5 % Normal 0.0-2.0 [facility] Comment on above: Performed By: #### L [id number] ####Gas Shovel Operator: VELMA VALADEZ ([phone])[facility])[address] [place] [address] Eosinophils (Bld) [#/Vol] 0.1 10*3/uL Normal 0.0-0.5 [facility] Comment on above: Performed By: #### L [id number] ####Gas Shovel Operator: VELMA AVLADEZ ([phone])[facility])[address] [place] [address] Eosinophils/100 WBC (Bld) 2.4 % Normal 0.0-6.0 [facility] Comment on above: Performed By: #### L [id number] ####Gas Shovel Operator: VELMA VALADEZ ([phone])[facility])[address] [place] [address] Erythrocyte distribution width (RBC) [Ratio] 14.8 % Normal 11.5-15.0 [facility] Comment on above: Performed By: #### L [id number] ####Gas Shovel Operator: VELMA VALADEZ ([phone])[facility])[address] [place] [address] Hematocrit (Bld) [Volume fraction] 28.3 % Low 35.0-47.0 [facility] Comment on above: Performed By: #### L [id number] ####Gas Shovel Operator: VELMA VALADEZ ([phone])[facility])[address] [place] [address] Hemoglobin (Bld) [Mass/Vol] 9.3 g/dL Low 11.7-16.0 [facility] Comment on above: Performed By: #### L [id number] ####Gas Shovel Operator: VELMA VALADEZ ([phone])[facility])[address] [place] [address] IMMATURE GRANS % 0.2 % Normal 0.0-2.0 [facility] Comment on above: Performed By: #### L [id number] ####Gas Shovel Operator: VELMA VALADEZ ([phone])[facility])[address] [place] [address] IMMATURE GRANS ABSOLUTE 0.0 10*3/uL Normal <0.1 [facility] Comment on above: Performed By: #### L [id number] ####Gas Shovel Operator: VELMA VALADEZ ([phone])[facility])[address] [place] [address] Lymphocytes (Bld) [#/Vol] 1.4 10*3/uL Normal 1.0-4.3 [facility] Comment on above: Performed By: #### L [id number] ####Gas Shovel Operator: VELMA VALADEZ ([phone])[address] Lymphocytes/100 WBC (Bld) 33.0 % Normal 15.0-45.0 [facility] Comment on above: Performed By: #### L [id number] ####Gas Shovel Operator: VELMA VALADEZ ([phone])[facility])[address] [place] [address] MCH (RBC) [Entitic mass] 30.4 pg Normal 26.0-34.0 [facility] Comment on above: Performed By: #### L [id number] ####Gas Shovel Operator: VELMA VALADEZ ([phone])[facility])[address] [place] [address] MCHC 32.9 % Normal 30.5-36.0 [facility] Comment on above: Performed By: #### L [id number] ####Gas Shovel Operator: VELMA VALADEZ ([phone])[facility])[address] [place] [address] MCV (RBC) [Entitic vol] 92.5 fL Normal 77.0-99.0 S [facility] Comment on above: Performed By: #### L [id number] ####Gas Shovel Operator: VELMA VALADEZ ([phone])[facility])[address] [place] [address] Monocytes (Bld) [#/Vol] 0.5 10*3/uL Normal 0.0-0.9 [facility] Comment on above: Performed By: #### L [id number] ####Gas Shovel Operator: VELMA VALADEZ ([phone])[facility] [place] [address] Monocytes/100 WBC (Bld) 11.9 % Normal 5.0-13.0 [facility] Comment on above: Performed By: #### L [id number] ####Gas Shovel Operator: VELMA VALADEZ ([phone])[facility] ([facility])[address] [place] [address] NEUTROPHILS ABSOLUTE 2.1 10*3/uL Normal 1.8-7.5 [facility] Comment on above: Performed By: #### L [id number] ####Gas Shovel Operator: VELMA VALADZE ([phone])[facility] ([facility])[address] [place] [address] Neutrophils/100 WBC (Bld) 52.0 % Normal 38.0-82.0 [facility] Comment on above: Performed By: #### L [id number] ####Gas Shovel Operator: VELMA VALADEZ ([phone])[facility] ([facility])[address] [place] [address] NRBC 0.0 /100 WBCs Normal 0.0-2.0 [facility] Comment on above: Performed By: #### L [id number] ####Gas Shovel Operator: VELMA VALADEZ ([phone])[facility] ([facility])[address] [place] [address] Platelet mean volume (Bld) [Entitic vol] 9.5 fL Normal 9.0-12.7 [facility] Comment on above: Performed By: #### L [id number] ####Gas Shovel Operator: VELMA VALADEZ ([phone])[facility])[address] [place] [address] Platelets (Bld) [#/Vol] 307 10*3/uL Normal 140-440 [facility] Comment on above: Performed By: #### L [id number] ####Gas Shovel Operator: VELMA VALADEZ ([phone])[facility])[address] [place] [address] RBC (Bld) [#/Vol] 3.06 10*6/uL Low 3.80-5.20 [facility] Comment on above: Performed By: #### L [id number] ####Gas Shovel Operator: VELMA VALADEZ ([phone])[facility])[address] [place] [address] WBC (Bld) [#/Vol] 4.1 10*3/uL Normal 3.6-10.7 [facility] Comment on above: Performed By: #### L [id number] ####Gas Shovel Operator: VELMA VALADEZ ([phone])[address] IDNon 04-12-2024 IDN Normal [facility] IDN Normal [facility] - Coagulationon 0 04-12-2024 PT Coag (Bld) [Time] 20.3 s High 9.0 - 1 2.0 s [facility] PROTHROMBIN TIMEon INR Coag (PPP) [Relative time] 1.9 {INR} High 0.9-1.1 [facility] Comment on above: Result Comment: Timothy mmended [...] Myocardial Infarction Performed By: #### L [id number] ####Gas Shovel Operator: VELMA VALADEZ ([phone])[facility])[address] [place] [address] PT Coag (PPP) [Time] 20.3 s High 9.0-12.0 [facility] Comment on above: Performed By: #### L [id number] ####Gas Shovel Operator: VELMA VALADEZ ([phone])[facility])[address] [place] [address] PT Coag (Bld) [Time]on 04-12 INR Coag (PPP) [Relative time] 1.9 {INR} High 0.9 - 1.1 [facility] Comment on above: Recommended Anticoag ulant Therapy: [...] Interpretation and review of laboratory results Abnormal [facility] Progress Noteon 04-12-2024 Progress Note Normal [facility] Progress Note Normal [facility] APTTon 04-11-2024 aPTT Coag (Bld) [Time] 62.7 s High 20.0-30.5 [facility] Comment on above: Result Comment: BUBBA Garcia COMMENTS:NOTE: The therapeutic time for Heparin anticoagulation, based on Xa activity inhibition, is an APTT of 46-80 seconds. Performed By: #### L [id number] ####Gas Shovel Operator: VELMA VALADEZ ([phone])[facility] ([facility])[address] [place] [address] aPTT Coag (Bld) [Time] 69.0 s High 20.0-30.5 [facility] Comment on above: Result Comment: BUBBA Garcia COMMENTS:NOTE: The therapeutic time for Heparin anticoagulation, based on Xa activity inhibition, is an APTT of 46-80 seconds. Performed By: #### L AB320, [id number] ####Gas Shovel Operator: VELMA VALADEZ ([phone])[facility] [place] [address] BASIC METABOLIC PANELon 09-2 Anion gap [Moles/Vol] 4 mmol/L Normal 3-13 [facility] Comment on above: Performed By: #### L AB15 ####Gas Shovel Operator: VELMA VALADEZ ([phone])[facility])[address] [place] [address] Calcium [Mass/Vol] 8.8 mg/dL Normal 8.4-10.4 [facility] Comment on above: Performed By: #### L AB15 ####Gas Shovel Operator: VELMA VALADEZ ([phone])[facility])[address] [place] [address] Chloride [Moles/Vol] 108 mmol/L High 98-107 [facility] Comment on above: Performed By: #### L AB15 ####Gas Shovel Operator: VELMA VALADEZ ([phone])[facility])[address] [place] [address] CO2 [Moles/Vol] 22 mmol/L Normal 22-30 [facility] Comment on above: Performed By: #### L AB15 ####Gas Shovel Operator: VELMA VALADEZ ([phone])[facility] ([facility])[address] [place] [address] Creatinine [Mass/Vol] 1.01 mg/dL Normal 0.52-1.04 [facility] Comment on above: Performed By: #### L AB15 ####Gas Shovel Operator: VELMA VALADEZ ([phone])[facility] ([facility])[address] [place] [address] GLOMERULAR FILTRATION RATE ML/MIN/1.73 SQ M.PREDICTED 55.0 mL/min/1.73m*2 Low >60.0 [facility] Comment on above: Result Comment: Calc ulation based on the Chronic Kidney Disease Epidemiology Collaboration (CKD-EPI) equation refit without adjustment for race Performed By: #### L AB15 ####Gas Shovel Operator: VELMA VALADEZ ([phone])[facility] [place] [address] [place] Glucose [Mass/Vol] 112 mg/dL High 70-100 [facility] Comment on above: Performed By: #### L AB15 ####Gas Shovel Operator: VELMA VALADEZ ([phone])[facility])[address] [place] [address] Potassium [Moles/Vol] 4.0 mmol/L Normal 3.5-5.1 [facility] Comment on above: Performed By: #### L AB15 ####Gas Shovel Operator: VELMA VALADEZ ([phone])[facility] ([facility])[address] [place] [address] [place] Sodium [Moles/Vol] 134 mmol/L Low 135-145 [facility] Comment on above: Performed By: #### L AB15 ####Gas Shovel Operator: VELMA VALADEZ ([phone])[facility] ([facility])[address] [place] [address] Urea nitrogen [Mass/Vol] 16 mg/dL Normal 7-17 [facility] Comment on above: Performed By: #### L AB15 ####Gas Shovel Operator: VELMA VALADEZ ([phone])[facility] ([facility])[address] [place] [address] Basic metabolic 1998 panelon 04-11-2024 Anion gap [Moles/Vol] 4 mmol/L 3 - 13 mmol/L [facility] Calcium [Mass/Vol] 8.8 mg/dL 8.4 - 10. 4 mg/dL [facility] Chloride [Moles/Vol] 108 mmol/L High 98 - 10 7 mmol/L [facility] CO2 [Moles/Vol] 22 mmol/L 22 - 30 mmol/L [facility] Creatinine [Mass/Vol] 1.01 mg/dL 0.52 - 1.04 mg/dL [facility] GFR/1.73 sq M.predicted (S/P/Bld) [Vol rate/Area] 55.0 mL/min Low - PINF [facility] Comment on above: Calculation based on the Chronic Kidney Disease Epidemiology Collaboration (CKD-EPI) equation refit without adjustment for race Glucose [Mass/Vol] 112 mg/dL High 70 - 100 mg/dL [facility] Interpretation and review of laboratory results Abnormal [facility] Potassium [Moles/Vol] 4.0 mmol/L 3.5 - 5.1 mmol/L [facility] Sodium [Moles/Vol] 134 mmol/L Low 135 - 145 mmol/L [facility] Urea nitrogen [Mass/Vol] 16 mg/dL 7 - 17 mg/dL [facility] CARECOORDon 04-11-2024 CARECOORD Normal [facility] CBC W Auto Differential pane l (Bld)on 04-11-2024 Basophils (Bld) [#/Vol] 0.0 10*3/uL 0.0 - 0.2 10*3/uL [facility] Basophils/100 WBC (Bld) 0.9 % 0.0 - 2.0 % [facility] Eosinophils (Bld) [#/Vol] 0.1 10*3/uL 0.0 - 0.5 10*3/uL [facility] Eosinophils/100 WBC (Bld) 2.0 % 0.0 - 6.0 % [facility] Erythrocyte distribution width (RBC) [Ratio] 14.8 % 11.5 - 15.0 % [facility] Hematocrit (Bld) [Volume fraction] 24.6 % Low 35.0 - 47.0 % [facility] Hemoglobin (Bld) [Mass/Vol] 8.3 g/dL Low 11.7 - 16.0 g/dL [facility] Immature granulocytes (Bld) [#/Vol] 0.0 10*3/uL NINF - 0.1 10*3/uL [facility] Immature granulocytes/100 WBC (Bld) 0.2 % 0.0 - 2.0 % [facility] Interpretation and review of laboratory results Abnormal [facility] Lymphocytes (Bld) [#/Vol] 1.4 10*3/uL 1.0 - 4.3 10*3/uL [facility] Lymphocytes/100 WBC (Bld) 31.9 % 15.0 - 45.0 % [facility] MCH (RBC) [Entitic mass] 30.5 pg 26.0 - 34.0 pg [facility] MCHC (RBC) [Mass/Vol] 33.7 % 30.5 - 36.0 % [facility] MCV (RBC) [Entitic vol] 90.4 fL 77.0 - 99.0 fL [facility] Monocytes (Bld) [#/Vol] 0.5 10*3/uL 0.0 - 0.9 10*3/uL [facility] Monocytes/100 WBC (Bld) 11.2 % 5.0 - 13.0 % [facility] Neutrophils (Bld) [#/Vol] 2.4 10*3/uL 1.8 - 7.5 10*3/uL [facility] Neutrophils/100 WBC (Bld) 53.8 % 38.0 - 82.0 % [facility] Nucleated RBC/100 WBC (Bld) [Ratio] 0.0 % [facility] Platelet mean volume (Bld) [Entitic vol] 10.0 fL 9.0 - 12.7 fL [facility] Platelets (Bld) [#/Vol] 244 10*3/uL 140 - 440 10*3/uL [facility] RBC (Bld) [#/Vol] 2.72 10*6/uL Low 3.80 - 5.2 0 10*6/uL [facility] WBC (Bld) [#/Vol] 4.5 10*3/uL 3.6 - 10.7 10*3/uL [facility] CBC WITH AUTO DIFFERENTIALon 04-11-2024 Basophils (Bld) [#/Vol] 0.0 10*3/uL Normal 0.0-0.2 [facility] Comment on above: Performed By: #### L [id number] ####Gas Shovel Operator: VELMA VALADEZ ([phone])[address] Basophils/100 WBC (Bld) 0.9 % Normal 0.0-2.0 S [facility] Comment on above: Performed By: #### L [id number] ####Gas Shovel Operator: VELMA [id number])[facility] ([facility])[address] [place] [address] Eosinophils (Bld) [#/Vol] 0.1 10*3/uL Normal 0.0-0.5 [facility] Comment on above: Performed By: #### L [id number] ####Gas Shovel Operator: VELAM [id number])[facility] [address] Eosinophils/100 WBC (Bld) 2.0 % Normal 0.0-6.0 [facility] Comment on above: Performed By: #### L [id number] ####Gas Shovel Operator: VELMA VALADEZ ([phone])[facility])[address] [place] [address] Erythrocyte distribution width (RBC) [Ratio] 14.8 % Normal 11.5-15.0 [facility] Comment on above: Performed By: #### L [id number] ####Gas Shovel Operator: VELMA VALADEZ ([phone])[address] Hematocrit (Bld) [Volume fraction] 24.6 % Low 35.0-47.0 [facility] Comment on above: Performed By: #### L [id number] ####Gas Shovel Operator: VELMA VALADEZ ([phone])[facility])[address] [place] [address] Hemoglobin (Bld) [Mass/Vol] 8.3 g/dL Low 11.7-16.0 [facility] Comment on above: Performed By: #### L [id number] ####Gas Shovel Operator: VELMA VALADEZ ([phone])[facility])[address] [place] [address] IMMATURE GRANS % 0.2 % Normal 0.0-2.0 [facility] Comment on above: Performed By: #### L [id number] ####Gas Shovel Operator: VELMA VALADEZ ([phone])[facility])[address] [place] [address] IMMATURE GRANS ABSOLUTE 0.0 10*3/uL Normal <0.1 [facility] Comment on above: Performed By: #### L [id number] ####Gas Shovel Operator: VELMA VALADEZ ([phone])[facility])[address] [place] [address] Lymphocytes (Bld) [#/Vol] 1.4 10*3/uL Normal 1.0-4.3 [facility] Comment on above: Performed By: #### L [id number] ####Gas Shovel Operator: VELMA VALADEZ ([phone])[facility])[address] [place] [address] Lymphocytes/100 WBC (Bld) 31.9 % Normal 15.0-45.0 [facility] Comment on above: Performed By: #### L [id number] ####Gas Shovel Operator: VELMA VALADEZ ([phone])[facility] ([facility])[address] [place] [address] MCH (RBC) [Entitic mass] 30.5 pg Normal 26.0-34.0 [facility] Comment on above: Performed By: #### L [id number] ####Gas Shovel Operator: VELMA VALADEZ ([phone])[facility])[address] [place] [address] MCHC 33.7 % Normal 30.5-36.0 [facility] Comment on above: Performed By: #### L [id number] ####Gas Shovel Operator: VELAM VALADEZ ([phone])[facility])[address] [place] [address] MCV (RBC) [Entitic vol] 90.4 fL Normal 77.0-99.0 [facility] Comment on above: Performed By: #### L [id number] ####Gas Shovel Operator: VELMA VALADEZ ([phone])[facility])[address] [place] [address] Monocytes (Bld) [#/Vol] 0.5 10*3/uL Normal 0.0-0.9 [facility] Comment on above: Performed By: #### L [id number] ####Gas Shovel Operator: VELMA VALADEZ ([phone])[facility])[address] [place] [address] Monocytes/100 WBC (Bld) 11.2 % Normal 5.0-13.0 [facility] Comment on above: Performed By: #### L [id number] ####Gas Shovel Operator: VELMA VALADEZ ([phone])[facility] ([facility])[address] [place] [address] NEUTROPHILS ABSOLUTE 2.4 10*3/uL Normal 1.8-7.5 [facility] Comment on above: Performed By: #### L [id number] ####Gas Shovel Operator: VELMA VALADEZ ([phone])[facility])[address] [place] [address] Neutrophils/100 WBC (Bld) 53.8 % Normal 38.0-82.0 [facility] Comment on above: Performed By: #### L [id number] ####Gas Shovel Operator: VELMA VALADEZ ([phone])[facility])[address] [place] [address] NRBC 0.0 /100 WBCs Normal 0.0-2.0 [facility] Comment on above: Performed By: #### L [id number] ####Gas Shovel Operator: VELMA VALADEZ ([phone])[facility] ([facility])[address] [place] [address] Platelet mean volume (Bld) [Entitic vol] 10.0 fL Normal 9.0-12.7 [facility] Comment on above: Performed By: #### L [id number] ####Gas Shovel Operator: VELMA VALADEZ ([phone])[facility] ([facility])[address] [place] [address] Platelets (Bld) [#/Vol] 244 10*3/uL Normal 140-440 [facility] Comment on above: Performed By: #### L [id number] ####Gas Shovel Operator: VELMA VALADEZ ([phone])[facility] ([facility])[address] [place] [address] RBC (Bld) [#/Vol] 2.72 10*6/uL Low 3.80-5.20 [facility] Comment on above: Performed By: #### L [id number] ####Gas Shovel Operator: VELMA VALADEZ ([phone])[facility] ([facility])[address] [place] [address] [place] WBC (Bld) [#/Vol] 4.5 10*3/uL Normal 3.6-10.7 [facility] Comment on above: Performed By: #### Weston [id number] ####Gas Shovel Operator: VELMA VALADEZ ([phone])[facility] ([facility])[address] [place] [address] [place] IDNon 04-11-2024 IDN Normal [facility] IDN Normal [facility] - Coagulationon 0 04-11-2024 PT Coag (Bld) [Time] 20.9 s High 9.0 - 1 2.0 s [facility] No Panel Informationon 04-11 Interpretation and review of laboratory results Abnormal [facility] PROTHROMBIN TIMEon INR Coag (PPP) [Relative time] 1.9 {INR} High 0.9-1.1 [facility] Comment on above: Result Comment: Timothy mmended [...] Myocardial Infarction Performed By: #### Weston [id number], [id number] ####Gas Shovel Operator: VELMA VALADEZ ([phone])[facility] ([facility])[address] [place] [address] [place] PT Coag (PPP) [Time] 20.9 s High 9.0-12.0 [facility] Comment on above: Performed By: #### Weston [id number], [id number] ####Gas Shovel Operator: VELMA VALADEZ ([phone])[facility] ([facility])[address] [place] [address] [place] PT Coag (Bld) [Time]on 04-11 INR Coag (PPP) [Relative time] 1.9 {INR} High 0.9 - 1.1 [facility] Comment on above: Recommended Anticoag ulant Therapy: [...] Infarction Progress Noteon 04-11-2024 Progress Note Normal [facility] Progress Note Normal [facility] aPTT Coag (Bld) [Time]on aPTT Coag (PPP) [Time] 62.7 s High 20.0 - 30.5 s [facility] Interpretation and review of laboratory results Abnormal [facility] NOTE: The therapeuti c time for Heparin anticoagulation, based on Xa activity inhibition, is an APTT of 46-80 seconds. [facility] aPTT Coag (PPP) [Time] 69.0 s High 20.0 - 30.5 s [facility] NOTE: The therapeuti c time for Heparin anticoagulation, based on Xa activity inhibition, is an APTT of 46-80 seconds. [facility] APTTon 04-10-2024 aPTT Coag (Bld) [Time] 59.0 s High 20.0-30.5 [facility] Comment on above: Result Comment: BUBBA Garcia COMMENTS:NOTE: The therapeutic time for Heparin anticoagulation, based on Xa activity inhibition, is an APTT of 46-80 seconds. Performed By: #### L [id number] ####Gas Shovel Operator: VELAM VALADEZ ([phone])[address] aPTT Coag (Bld) [Time] 77.3 s High 20.0-30.5 [facility] Comment on above: Result Comment: BUBBA Garcia COMMENTS:NOTE: The therapeutic time for Heparin anticoagulation, based on Xa activity inhibition, is an APTT of 46-80 seconds. Performed By: #### L [id number], [id number] ####Gas Shovel Operator: VELMA VALADEZ ([phone])[facility] ([facility])[address] [place] [address] BASIC METABOLIC PANELon 03-19 Anion gap [Moles/Vol] 3 mmol/L Normal 3-13 [facility] Comment on above: Performed By: #### L [id number] ####Gas Shovel Operator: VELMA VALADEZ ([phone])[facility] ([facility])[address] [place] [address] Calcium [Mass/Vol] 9.0 mg/dL Normal 8.4-10.4 [facility] Comment on above: Performed By: #### L [id number] ####Gas Shovel Operator: VELMA VALADEZ ([phone])[facility] ([facility])[address] [place] [address] Chloride [Moles/Vol] 111 mmol/L High 98-107 [facility] Comment on above: Performed By: #### L AB15 ####Gas Shovel Operator: VELMA VALADEZ ([phone])[facility] [place] [address] CO2 [Moles/Vol] 21 mmol/L Low 22-30 [facility] Comment on above: Performed By: #### L AB15 ####Gas Shovel Operator: VELMA VALADEZ ([phone])[facility] ([facility])[address] [place] [address] Creatinine [Mass/Vol] 1.00 mg/dL Normal 0.52-1.04 [facility] Comment on above: Performed By: #### L AB15 ####Gas Shovel Operator: VELMA VALADEZ ([phone])[facility] ([facility])[address] [place] [address] [place] GLOMERULAR FILTRATION RATE ML/MIN/1.73 SQ M.PREDICTED 55.7 mL/min/1.73m*2 Low >60.0 [facility] Comment on above: Result Comment: Calc ulation based on the Chronic Kidney Disease Epidemiology Collaboration (CKD-EPI) equation refit without adjustment for race Performed By: #### L AB15 ####Gas Shovel Operator: VELMA VALADEZ ([phone])[facility] ([facility])[address] [place] [address] Glucose [Mass/Vol] 101 mg/dL High 70-100 [facility] Comment on above: Performed By: #### L AB15 ####Gas Shovel Operator: VELMA VALADEZ ([phone])[facility] ([facility])[address] [place] [address] Potassium [Moles/Vol] 3.8 mmol/L Normal 3.5-5.1 [facility] Comment on above: Performed By: #### L AB15 ####Gas Shovel Operator: VELMA VALADEZ ([phone])[facility] ([facility])[address] [place] [address] Sodium [Moles/Vol] 136 mmol/L Normal 135-145 [facility] Comment on above: Performed By: #### L AB15 ####Gas Shovel Operator: VELMA VALADEZ ([phone])[facility] ([facility])[address] [place] [address] Urea nitrogen [Mass/Vol] 15 mg/dL Normal 7-17 [facility] Comment on above: Performed By: #### L AB15 ####Gas Shovel Operator: VELMA VALADEZ ([phone])[facility] ([facility])[address] [place] [address] Basic metabolic 1998 panelon 04-10-2024 Anion gap [Moles/Vol] 3 mmol/L 3 - 13 mmol/L [facility] Calcium [Mass/Vol] 9.0 mg/dL 8.4 - 10. 4 mg/dL [facility] Chloride [Moles/Vol] 111 mmol/L High 98 - 10 7 mmol/L [facility] CO2 [Moles/Vol] 21 mmol/L Low 22 - 30 mmol/L [facility] Creatinine [Mass/Vol] 1.00 mg/dL 0.52 - 1.04 mg/dL [facility] GFR/1.73 sq M.predicted (S/P/Bld) [Vol rate/Area] 55.7 mL/min Low - PINF [facility] Comment on above: Calculation based on the Chronic Kidney Disease Epidemiology Collaboration (CKD-EPI) equation refit without adjustment for race Glucose [Mass/Vol] 101 mg/dL High 70 - 100 mg/dL [facility] Interpretation and review of laboratory results Abnormal [facility] Potassium [Moles/Vol] 3.8 mmol/L 3.5 - 5.1 mmol/L [facility] Sodium [Moles/Vol] 136 mmol/L 135 - 145 mmol/L [facility] Urea nitrogen [Mass/Vol] 15 mg/dL 7 - 17 mg/dL [facility]ECOORDon 04-10-[address] [facility] Normal [facility] CBC W Auto Differential pane l (Bld)on 04-10-2024 Basophils (Bld) [#/Vol] 0.0 10*3/uL 0.0 - 0.2 10*3/uL [facility] Basophils/100 WBC (Bld) 0.7 % 0.0 - 2.0 % [facility] Eosinophils (Bld) [#/Vol] 0.1 10*3/uL 0.0 - 0.5 10*3/uL [facility] Eosinophils/100 WBC (Bld) 2.1 % 0.0 - 6.0 % [facility] Erythrocyte distribution width (RBC) [Ratio] 14.7 % 11.5 - 15.0 % [facility] Hematocrit (Bld) [Volume fraction] 26.0 % Low 35.0 - 47.0 % [facility] Hemoglobin (Bld) [Mass/Vol] 8.6 g/dL Low 11.7 - 16.0 g/dL [facility] Immature granulocytes (Bld) [#/Vol] 0.0 10*3/uL NINF - 0.1 10*3/uL [facility] Immature granulocytes/100 WBC (Bld) 0.2 % 0.0 - 2.0 % [facility] Interpretation and review of laboratory results Abnormal [facility] Lymphocytes (Bld) [#/Vol] 1.4 10*3/uL 1.0 - 4.3 10*3/uL [facility] Lymphocytes/100 WBC (Bld) 32.9 % 15.0 - 45.0 % [facility] MCH (RBC) [Entitic mass] 30.1 pg 26.0 - 34.0 pg [facility] MCHC (RBC) [Mass/Vol] 33.1 % 30.5 - 36.0 % [facility] MCV (RBC) [Entitic vol] 90.9 fL 77.0 - 99.0 fL [facility] Monocytes (Bld) [#/Vol] 0.6 10*3/uL 0.0 - 0.9 10*3/uL [facility] Monocytes/100 WBC (Bld) 13.6 % High 5.0 - 13.0 % [facility] Neutrophils (Bld) [#/Vol] 2.1 10*3/uL 1.8 - 7.5 10*3/uL [facility] Neutrophils/100 WBC (Bld) 50.5 % 38.0 - 82.0 % [facility] Nucleated RBC/100 WBC (Bld) [Ratio] 0.0 % [facility] Platelet mean volume (Bld) [Entitic vol] 10.0 fL 9.0 - 12.7 fL [facility] Platelets (Bld) [#/Vol] 238 10*3/uL 140 - 440 10*3/uL [facility] RBC (Bld) [#/Vol] 2.86 10*6/uL Low 3.80 - 5.2 0 10*6/uL [facility] WBC (Bld) [#/Vol] 4.3 10*3/uL 3.6 - 10.7 10*3/uL [facility] CBC WITH AUTO DIFFERENTIALon 04-10-2024 Basophils (Bld) [#/Vol] 0.0 10*3/uL Normal 0.0-0.2 [facility] Comment on above: Performed By: #### L [id number] ####Gas Shovel Operator: VELMA VALADEZ ([phone])[address] Basophils/100 WBC (Bld) 0.7 % Normal 0.0-2.0 S [facility] Comment on above: Performed By: #### L [id number] ####Gas Shovel Operator: VELMA VALADEZ ([phone])[facility])[address] [place] [address] Eosinophils (Bld) [#/Vol] 0.1 10*3/uL Normal 0.0-0.5 [facility] Comment on above: Performed By: #### L [id number] ####Gas Shovel Operator: VELMA VALADEZ ([phone])[address] Eosinophils/100 WBC (Bld) 2.1 % Normal 0.0-6.0 [facility] Comment on above: Performed By: #### L [id number] ####Gas Shovel Operator: VELMA VALADEZ ([phone])[facility])[address] [place] [address] Erythrocyte distribution width (RBC) [Ratio] 14.7 % Normal 11.5-15.0 [facility] Comment on above: Performed By: #### L [id number] ####Gas Shovel Operator: VELMA VALADEZ ([phone])[address] Hematocrit (Bld) [Volume fraction] 26.0 % Low 35.0-47.0 [facility] Comment on above: Performed By: #### L [id number] ####Gas Shovel Operator: VELMA VALADEZ ([phone])[address] Hemoglobin (Bld) [Mass/Vol] 8.6 g/dL Low 11.7-16.0 [facility] Comment on above: Performed By: #### L [id number] ####Gas Shovel Operator: VELMA VALADEZ ([phone])[address] IMMATURE GRANS % 0.2 % Normal 0.0-2.0 [facility] Comment on above: Performed By: #### L [id number] ####Gas Shovel Operator: VELMA VALADEZ ([phone])[address] IMMATURE GRANS ABSOLUTE 0.0 10*3/uL Normal <0.1 [facility] Comment on above: Performed By: #### L [id number] ####Gas Shovel Operator: VELMA VALADEZ ([phone])[facility])[address] [place] [address] Lymphocytes (Bld) [#/Vol] 1.4 10*3/uL Normal 1.0-4.3 [facility] Comment on above: Performed By: #### L [id number] ####Gas Shovel Operator: VELMA VALADEZ ([phone])[facility])[address] [place] [address] Lymphocytes/100 WBC (Bld) 32.9 % Normal 15.0-45.0 [facility] Comment on above: Performed By: #### L [id number] ####Gas Shovel Operator: VELMA VALADEZ ([phone])[facility])[address] [place] [address] MCH (RBC) [Entitic mass] 30.1 pg Normal 26.0-34.0 [facility] Comment on above: Performed By: #### L [id number] ####Gas Shovel Operator: VELMA VALADEZ ([phone])[facility])[address] [place] [address] MCHC 33.1 % Normal 30.5-36.0 [facility] Comment on above: Performed By: #### L [id number] ####Gas Shovel Operator: VELMA VALADEZ ([phone])[facility])[address] [place] [address] MCV (RBC) [Entitic vol] 90.9 fL Normal 77.0-99.0 [facility] Comment on above: Performed By: #### L [id number] ####Gas Shovel Operator: VELMA VALADEZ ([phone])[facility])[address] [place] [address] Monocytes (Bld) [#/Vol] 0.6 10*3/uL Normal 0.0-0.9 [facility] Comment on above: Performed By: #### L [id number] ####Gas Shovel Operator: VELMA VALADEZ ([phone])[facility])[address] [place] [address] Monocytes/100 WBC (Bld) 13.6 % High 5.0-13.0 [facility] Comment on above: Performed By: #### L [id number] ####Gas Shovel Operator: VELMA VALADEZ ([phone])[facility] ([facility])[address] [place] [address] NEUTROPHILS ABSOLUTE 2.1 10*3/uL Normal 1.8-7.5 [facility] Comment on above: Performed By: #### L [id number] ####Gas Shovel Operator: VELMA VALADEZ ([phone])[facility] ([facility])[address] [place] [address] Neutrophils/100 WBC (Bld) 50.5 % Normal 38.0-82.0 [facility] Comment on above: Performed By: #### L [id number] ####Gas Shovel Operator: VELMA VALADEZ ([phone])[facility] ([facility])[address] [place] [address] NRBC 0.0 /100 WBCs Normal 0.0-2.0 [facility] Comment on above: Performed By: #### L [id number] ####Gas Shovel Operator: VELMA VALADEZ ([phone])[facility] ([facility])[address] [place] [address] Platelet mean volume (Bld) [Entitic vol] 10.0 fL Normal 9.0-12.7 [facility] Comment on above: Performed By: #### L [id number] ####Gas Shovel Operator: VELMA VALADEZ ([phone])[facility] ([facility])[address] [place] [address] Platelets (Bld) [#/Vol] 238 10*3/uL Normal 140-440 [facility] Comment on above: Performed By: #### L [id number] ####Gas Shovel Operator: VELMA VALADEZ ([id number])[facility] ([facility])[address] [place] [address] RBC (Bld) [#/Vol] 2.86 10*6/uL Low 3.80-5.20 [facility] Comment on above: Performed By: #### L [id number] ####Gas Shovel Operator: VELMA VALADEZ ([id number])[facility])[address] [place] [address] WBC (Bld) [#/Vol] 4.3 10*3/uL Normal 3.6-10.7 [facility] Comment on above: Performed By: #### L [id number] ####Gas Shovel Operator: VELMA VALADEZ ([phone])[facility] ([facility])[address] [place] [address] IDNon 04-10-2024 IDN Normal [facility] - Coagulationon 0 04-10-2024 PT Coag (Bld) [Time] 17.7 s High 9.0 - 1 2.0 s [facility] No Panel Informationon 04-10 Interpretation and review of laboratory results Abnormal [facility] PROTHROMBIN TIMEon INR Coag (PPP) [Relative time] 1.6 {INR} High 0.9-1.1 [facility] Comment on above: Result Comment: Timothy mmended [...] Myocardial Infarction Performed By: #### L [id number], [id number] ####Gas Shovel Operator: VELMA VALADEZ ([phone])[facility] ([facility])[address] [place] [address] PT Coag (PPP) [Time] 17.7 s High 9.0-12.0 [facility] Comment on above: Performed By: #### L [id number], [id number] ####Gas Shovel Operator: VELMA VALADEZ ([phone])[facility])[address] [place] [address] [place] PT Coag (Bld) [Time]on 04-10 INR Coag (PPP) [Relative time] 1.6 {INR} High 0.9 - 1.1 [facility] Comment on above: Recommended Anticoag ulant Therapy: [...] Infarction Progress Noteon 04-10-2024 Progress Note Normal [facility] Progress Note Nutrition update completed. Chart reviewed. Patient to be monitored and followed by the diet factory maintenance technician. Jessica Doran, DT Normal [facility] Progress Note Normal [facility] aPTT Coag (Bld) [Time]on aPTT Coag (PPP) [Time] 59.0 s High 20.0 - 30.5 s [facility] Interpretation and review of laboratory results Abnormal [facility] NOTE: The therapeuti c time for Heparin anticoagulation, based on Xa activity inhibition, is an APTT of 46-80 seconds. [facility] aPTT Coag (PPP) [Time] 77.3 s High 20.0 - 30.5 s [facility] NOTE: The therapeuti c time for Heparin anticoagulation, based on Xa activity inhibition, is an APTT of 46-80 seconds. [facility] APTTon 04-09-2024 aPTT Coag (Bld) [Time] 58.9 s High 20.0-30.5 [facility] Comment on above: Result Comment: BUBBA Garcia COMMENTS:NOTE: The therapeutic time for Heparin anticoagulation, based on Xa activity inhibition, is an APTT of 46-80 seconds. Performed By: #### L [id number] ####Gas Shovel Operator: VELMA VALADEZ ([phone])[facility] [place] [id number] [facility] aPTT Coag (Bld) [Time] 64.6 s High 20.0-30.5 [facility] Comment on above: Result Comment: BUBBA Garcia COMMENTS:NOTE: The therapeutic time for Heparin anticoagulation, based on Xa activity inhibition, is an APTT of 46-80 seconds. Performed By: #### L [id number] ####Gas Shovel Operator: VELMA VALADEZ ([phone])[facility] [place] [address] aPTT Coag (Bld) [Time] 82.3 s High 20.0-30.5 [facility] Comment on above: Result Comment: BUBBA Garcia COMMENTS:NOTE: The therapeutic time for Heparin anticoagulation, based on Xa activity inhibition, is an APTT of 46-80 seconds. Performed By: #### L [id number], [id number] ####Gas Shovel Operator: VELMA VALADEZ ([phone])[facility] ([facility])[address] [place] [address] BASIC METABOLIC PANELon 09-2 -2023 Anion gap [Moles/Vol] 5 mmol/L Normal 3-13 [facility] Comment on above: Performed By: #### L [id number] ####Gas Shovel Operator: VELMA VALADEZ ([phone])[facility] ([facility])[address] [place] [address] Calcium [Mass/Vol] 8.9 mg/dL Normal 8.4-10.4 [facility] Comment on above: Performed By: #### L [id number] ####Gas Shovel Operator: VELMA VALADEZ ([phone])[facility] [place] [address] [place] Chloride [Moles/Vol] 116 mmol/L High 98-107 [facility] Comment on above: Performed By: #### L [id number] ####Gas Shovel Operator: VELMA VALADEZ ([phone])[facility] ([facility])[address] [place] [address] CO2 [Moles/Vol] 16 mmol/L Low 22-[address] [facility] Comment on above: Performed By: #### L AB15 ####Gas Shovel Operator: VELMA VALADEZ ([phone])[facility])[address] [place] [address] Creatinine [Mass/Vol] 0.93 mg/dL Normal 0.52-1.04 [facility] Comment on above: Performed By: #### L [id number] ####Gas Shovel Operator: VELMA VALADEZ ([phone])[facility])[address] [place] [address] GLOMERULAR FILTRATION RATE ML/MIN/1.73 SQ M.PREDICTED 60.7 mL/min/1.73m*2 Normal >60.0 [facility] Comment on above: Result Comment: Calc ulation based on the Chronic Kidney Disease Epidemiology Collaboration (CKD-EPI) equation refit without adjustment for race Performed By: #### L [id number] ####Gas Shovel Operator: VELMA VALADEZ ([phone])[facility] ([facility])[address] [place] [address] Glucose [Mass/Vol] 119 mg/dL High 70-100 [facility] Comment on above: Performed By: #### L AB15 ####Gas Shovel Operator: VELMA VALADEZ ([phone])[facility] ([facility])[address] [place] [address] Potassium [Moles/Vol] 4.4 mmol/L Normal 3.5-5.1 [facility] Comment on above: Performed By: #### L [id number] ####Gas Shovel Operator: VELMA VALADEZ ([phone])[facility] ([facility])[address] [place] [address] Sodium [Moles/Vol] 136 mmol/L Normal 135-145 [facility] Comment on above: Performed By: #### L AB15 ####Gas Shovel Operator: VELMA VALADEZ ([phone])[facility] ([facility])[address] [place] [address] Urea nitrogen [Mass/Vol] 16 mg/dL Normal 7-17 [facility] Comment on above: Performed By: #### L AB15 ####Gas Shovel Operator: VELMA VALADEZ ([phone])[facility] ([facility])[address] [place] [address] Basic metabolic 1998 panelon 04-09-2024 Anion gap [Moles/Vol] 5 mmol/L 3 - 13 mmol/L [facility] Calcium [Mass/Vol] 8.9 mg/dL 8.4 - 10. 4 mg/dL [facility] Chloride [Moles/Vol] 116 mmol/L High 98 - 10 7 mmol/L [facility] CO2 [Moles/Vol] 16 mmol/L Low 22 - 30 mmol/L [facility] Creatinine [Mass/Vol] 0.93 mg/dL 0.52 - 1.04 mg/dL [facility] GFR/1.73 sq M.predicted (S/P/Bld) [Vol rate/Area] 60.7 mL/min - PINF [facility] Comment on above: Calculation based on the Chronic Kidney Disease Epidemiology Collaboration (CKD-EPI) equation refit without adjustment for race Glucose [Mass/Vol] 119 mg/dL High 70 - 100 mg/dL [facility] Interpretation and review of laboratory results Abnormal [facility] Potassium [Moles/Vol] 4.4 mmol/L 3.5 - 5.1 mmol/L [facility] Sodium [Moles/Vol] 136 mmol/L 135 - 145 mmol/L [facility] Urea nitrogen [Mass/Vol] 16 mg/dL 7 - 17 mg/dL [facility] CARECOORDon 04-09-2024 CARECOORD Normal [facility] CBC W Auto Differential pane l (Bld)on 04-09-2024 Basophils (Bld) [#/Vol] 0.0 10*3/uL 0.0 - 0.2 10*3/uL [facility] Basophils/100 WBC (Bld) 0.6 % 0.0 - 2.0 % [facility] Eosinophils (Bld) [#/Vol] 0.1 10*3/uL 0.0 - 0.5 10*3/uL [facility] Eosinophils/100 WBC (Bld) 0.9 % 0.0 - 6.0 % [facility] Erythrocyte distribution width (RBC) [Ratio] 14.8 % 11.5 - 15.0 % [facility] Hematocrit (Bld) [Volume fraction] 28.2 % Low 35.0 - 47.0 % [facility] Hemoglobin (Bld) [Mass/Vol] 9.0 g/dL Low 11.7 - 16.0 g/dL [facility] [place] Immature granulocytes (Bld) [#/Vol] 0.0 10*3/uL NINF - 0.1 10*3/uL [facility] [place] Immature granulocytes/100 WBC (Bld) 0.4 % 0.0 - 2.0 % [facility] Interpretation and review of laboratory results Abnormal [facility] [place] Lymphocytes (Bld) [#/Vol] 2.2 10*3/uL 1.0 - 4.3 10*3/uL [facility] [place] Lymphocytes/100 WBC (Bld) 31.2 % 15.0 - 45.0 % [facility] MCH (RBC) [Entitic mass] 29.8 pg 26.0 - 34.0 pg [facility] MCHC (RBC) [Mass/Vol] 31.9 % 30.5 - 36.0 % [facility] MCV (RBC) [Entitic vol] 93.4 fL 77.0 - 99.0 fL [facility] [place] Monocytes (Bld) [#/Vol] 0.7 10*3/uL 0.0 - 0.9 10*3/uL [facility] Monocytes/100 WBC (Bld) 10.7 % 5.0 - 13.0 % [facility] Neutrophils (Bld) [#/Vol] 3.9 10*3/uL 1.8 - 7.5 10*3/uL [facility] Neutrophils/100 WBC (Bld) 56.2 % 38.0 - 82.0 % [facility] Nucleated RBC/100 WBC (Bld) [Ratio] 0.0 % [facility] [place] Platelet mean volume (Bld) [Entitic vol] 10.2 fL 9.0 - 12.7 fL [facility] [place] Platelets (Bld) [#/Vol] 235 10*3/uL 140 - 440 10*3/uL [facility] RBC (Bld) [#/Vol] 3.02 10*6/uL Low 3.80 - 5.2 0 10*6/uL [facility] [place] WBC (Bld) [#/Vol] 6.9 10*3/uL 3.6 - 10.7 10*3/uL [facility] CBC WITH AUTO DIFFERENTIALon 04-09-2024 Basophils (Bld) [#/Vol] 0.0 10*3/uL Normal 0.0-0.2 [facility] Comment on above: Performed By: #### L [id number] ####Gas Shovel Operator: VELMA VALADEZ ([phone])[facility])[address] [place] [address] Basophils/100 WBC (Bld) 0.6 % Normal 0.0-2.0 S [facility] Comment on above: Performed By: #### L [id number] ####Gas Shovel Operator: VELMA VALADEZ ([phone])[facility])[address] [place] [address] Eosinophils (Bld) [#/Vol] 0.1 10*3/uL Normal 0.0-0.5 [facility] Comment on above: Performed By: #### L [id number] ####Gas Shovel Operator: VELMA VALADEZ ([phone])[address] Eosinophils/100 WBC (Bld) 0.9 % Normal 0.0-6.0 [facility] Comment on above: Performed By: #### L [id number] ####Gas Shovel Operator: VELMA VALADEZ ([phone])[address] Erythrocyte distribution width (RBC) [Ratio] 14.8 % Normal 11.5-15.0 [facility] Comment on above: Performed By: #### L [id number] ####Gas Shovel Operator: VELMA VALADEZ ([phone])[facility])[address] [place] [address] Hematocrit (Bld) [Volume fraction] 28.2 % Low 35.0-47.0 [facility] Comment on above: Performed By: #### L [id number] ####Gas Shovel Operator: VELMA VALADEZ ([phone])[address] Hemoglobin (Bld) [Mass/Vol] 9.0 g/dL Low 11.7-16.0 [facility] Comment on above: Performed By: #### L [id number] ####Gas Shovel Operator: VELMA VALADEZ ([phone])[facility] ([facility])[address] [place] [address] IMMATURE GRANS % 0.4 % Normal 0.0-2.0 [facility] Comment on above: Performed By: #### L [id number] ####Gas Shovel Operator: VELMA VALADEZ ([phone])[facility])[address] [place] [address] IMMATURE GRANS ABSOLUTE 0.0 10*3/uL Normal <0.1 [facility] Comment on above: Performed By: #### L [id number] ####Gas Shovel Operator: VELMA VALADEZ ([phone])[facility])[address] [place] [address] Lymphocytes (Bld) [#/Vol] 2.2 10*3/uL Normal 1.0-4.3 [facility] Comment on above: Performed By: #### L [id number] ####Gas Shovel Operator: VELMA VALADEZ ([phone])[facility] ([facility])[address] [place] [address] Lymphocytes/100 WBC (Bld) 31.2 % Normal 15.0-45.0 [facility] Comment on above: Performed By: #### L [id number] ####Gas Shovel Operator: VELMA VALADEZ ([phone])[facility])[address] [place] [address] MCH (RBC) [Entitic mass] 29.8 pg Normal 26.0-34.0 [facility] Comment on above: Performed By: #### L [id number] ####Gas Shovel Operator: VELMA VALADEZ ([phone])[facility])[address] [place] [address] MCHC 31.9 % Normal 30.5-36.0 [facility] Comment on above: Performed By: #### L [id number] ####Gas Shovel Operator: VELMA VALADEZ ([phone])[facility])[address] [place] [address] MCV (RBC) [Entitic vol] 93.4 fL Normal 77.0-99.0 S [facility] Comment on above: Performed By: #### L [id number] ####Gas Shovel Operator: VELMA VALADEZ ([phone])[facility] ([facility])[address] [place] [address] Monocytes (Bld) [#/Vol] 0.7 10*3/uL Normal 0.0-0.9 [facility] Comment on above: Performed By: #### L [id number] ####Gas Shovel Operator: VELMA VALADEZ ([phone])[facility] ([facility])[address] [place] [address] Monocytes/100 WBC (Bld) 10.7 % Normal 5.0-13.0 S [facility] Comment on above: Performed By: #### L [id number] ####Gas Shovel Operator: VELMA VALADEZ ([phone])[facility] ([facility])[address] [place] [address] NEUTROPHILS ABSOLUTE 3.9 10*3/uL Normal 1.8-7.5 [facility] Comment on above: Performed By: #### L [id number] ####Gas Shovel Operator: VELMA VALADEZ ([phone])[facility] ([facility])[address] [place] [address] Neutrophils/100 WBC (Bld) 56.2 % Normal 38.0-82.0 [facility] Comment on above: Performed By: #### L [id number] ####Gas Shovel Operator: VELMA VALADEZ ([phone])[facility] ([facility])[address] [place] [address] NRBC 0.0 /100 WBCs Normal 0.0-2.0 [facility] Comment on above: Performed By: #### L [id number] ####Gas Shovel Operator: VELMA VALADEZ ([phone])[facility] ([facility])[address] [place] [address] [place] Platelet mean volume (Bld) [Entitic vol] 10.2 fL Normal 9.0-12.7 [facility] Comment on above: Performed By: #### L [id number] ####Gas Shovel Operator: VELMA VALADEZ ([phone])[facility])[address] [place] [address] Platelets (Bld) [#/Vol] 235 10*3/uL Normal 140-440 [facility] Comment on above: Performed By: #### L [id number] ####Gas Shovel Operator: VELMA VALADEZ ([phone])[facility])[address] [place] [address] RBC (Bld) [#/Vol] 3.02 10*6/uL Low 3.80-5.20 [facility] Comment on above: Performed By: #### L [id number] ####Gas Shovel Operator: VELMA VALADEZ ([phone])[facility])[address] [place] [address] WBC (Bld) [#/Vol] 6.9 10*3/uL Normal 3.6-10.7 [facility] Comment on above: Performed By: #### L [id number] ####Gas Shovel Operator: VELMA VALADEZ ([phone])[facility])[address] [place] [address] Laboratory - Coagulationon 0 04-09-2024 PT Coag (Bld) [Time] 13.8 s High 9.0 - 1 2.0 s [facility] No Panel Informationon 04-09 Interpretation and review of laboratory results Abnormal [facility] PROTHROMBIN TIMEon INR Coag (PPP) [Relative time] 1.2 {INR} High 0.9-1.1 [facility] Comment on above: Result Comment: Timothy mmended [...] Myocardial Infarction Performed By: #### L [id number], [id number] ####Gas Shovel Operator: VELMA VALADEZ ([phone])[facility] [place] [address] PT Coag (PPP) [Time] 13.8 s High 9.0-12.0 [facility] Comment on above: Performed By: #### L [id number], [id number] ####Gas Shovel Operator: VELMA VALADEZ ([phone])[facility] ([facility])[address] [place] [address] PT Coag (Bld) [Time]on 04-09 INR Coag (PPP) [Relative time] 1.2 {INR} High 0.9 - 1.1 [facility] Comment on above: Recommended Anticoag ulant Therapy: [...] Infarction Progress Noteon 04-09-2024 Progress Note Normal [facility] Progress Note Normal [facility] XR CHEST 1 VIEWon 04-09-2024 XR CHEST 1 VIEW Normal [facility] XR Chest Single viewon 04-09 Mild cardiomegaly and pulmonary venous congestion with small pleural effusions. Report Dictated on Electronically Signed By: Di Leggett MD Electronically Signed Date/Time: 04/09/2024 1:42 PM [facility] [employer] Patient Name: MEL CARVER RD : [...] the left shoulder. No acute osseous findings. [facility] Di Leggett M D - 04/09/2024 [...] Electronically Signed Date/Time: 04/09/2024 1:42 PM EDT [facility] Radiology Study observation (narrative) [facility] XR Chest Single viewOrdered By: Di Leggett on 04-09-2024 [facility] Work Phone: aPTT Coag (Bld) [Time]on aPTT Coag (PPP) [Time] 58.9 s High 20.0 - 30.5 s [facility] Interpretation and review of laboratory results Abnormal [facility] NOTE: The therapeuti c time for Heparin anticoagulation, based on Xa activity inhibition, is an APTT of 46-80 seconds. [facility] aPTT Coag (PPP) [Time] 64.6 s High 20.0 - 30.5 s [facility] Interpretation and review of laboratory results Abnormal [facility] NOTE: The therapeuti c time for Heparin anticoagulation, based on Xa activity inhibition, is an APTT of 46-80 seconds. [facility] aPTT Coag (PPP) [Time] 82.3 s High 20.0 - 30.5 s [facility] NOTE: The therapeuti c time for Heparin anticoagulation, based on Xa activity inhibition, is an APTT of 46-80 seconds. [facility] APTTon 04-08-2024 aPTT Coag (Bld) [Time] 51.5 s High 20.0-30.5 [facility] Comment on above: Result Comment: BUBBA R COMMENTS:NOTE: The therapeutic time for Heparin anticoagulation, based on Xa activity inhibition, is an APTT of 46-80 seconds. Performed By: #### L [id number] ####Gas Shovel Operator: VELMA VALADEZ ([phone])[facility])[address] [place] [address] aPTT Coag (Bld) [Time] 59.8 s High 20.0-30.5 [facility] Comment on above: Result Comment: BUBBA Garcia COMMENTS:NOTE: The therapeutic time for Heparin anticoagulation, based on Xa activity inhibition, is an APTT of 46-80 seconds. Performed By: #### L [id number] ####Gas Shovel Operator: VELMA VALADEZ ([phone])[facility] ([facility])[address] [place] [address] aPTT Coag (Bld) [Time] 41.4 s High 20.0-30.5 [facility] Comment on above: Result Comment: BUBBA R COMMENTS:NOTE: The therapeutic time for Heparin anticoagulation, based on Xa activity inhibition, is an APTT of 46-80 seconds. Performed By: #### L [id number], [id number] ####Gas Shovel Operator: VELMA VALADEZ ([phone])[facility] ([facility])[address] [place] [address] BASIC METABOLIC PANELon 09- Anion gap [Moles/Vol] 5 mmol/L Normal 3-13 [facility] Comment on above: Performed By: #### L AB15 ####Gas Shovel Operator: VELMA VALADEZ ([phone])[facility] [place] [address] Calcium [Mass/Vol] 8.9 mg/dL Normal 8.4-10.4 [facility] Comment on above: Performed By: #### L AB15 ####Gas Shovel Operator: VELMA VALADEZ ([phone])[facility] [place] [address] Chloride [Moles/Vol] 113 mmol/L High 98-107 [facility] Comment on above: Performed By: #### L [id number] ####Gas Shovel Operator: VELMA VALADEZ ([phone])[facility] [place] [address] CO2 [Moles/Vol] 17 mmol/L Low 22-30 [facility] Comment on above: Performed By: #### L AB15 ####Gas Shovel Operator: VELMA VALADEZ ([phone])[facility] [place] [address] Creatinine [Mass/Vol] 0.98 mg/dL Normal 0.52-1.04 [facility] Comment on above: Performed By: #### L AB15 ####Gas Shovel Operator: VELMA VALADEZ ([phone])[facility] ([facility])[address] [place] [address] [place] GLOMERULAR FILTRATION RATE ML/MIN/1.73 SQ M.PREDICTED 57.0 mL/min/1.73m*2 Low >60.0 [facility] Comment on above: Result Comment: Calc ulation based on the Chronic Kidney Disease Epidemiology Collaboration (CKD-EPI) equation refit without adjustment for race Performed By: #### L [id number] ####Gas Shovel Operator: VELMA VALADEZ ([phone])[facility] [place] [address] [place] Glucose [Mass/Vol] 116 mg/dL High 70-100 [facility] Comment on above: Performed By: #### L AB15 ####Gas Shovel Operator: VELMA VALADEZ ([phone])[facility] ([facility])[address] [place] [address] Potassium [Moles/Vol] 4.5 mmol/L Normal 3.5-5.1 [facility] Comment on above: Performed By: #### L AB15 ####Gas Shovel Operator: VELMA VALADEZ ([phone])[facility])[address] [place] [address] Sodium [Moles/Vol] 135 mmol/L Normal 135-145 [facility] Comment on above: Performed By: #### L AB15 ####Gas Shovel Operator: VELMA VALADEZ ([phone])[facility])[address] [place] [address] Urea nitrogen [Mass/Vol] 18 mg/dL High 7-17 [facility] Comment on above: Performed By: #### L AB15 ####Gas Shovel Operator: VELMA VALADEZ ([phone])[facility])[address] [place] [address] Basic metabolic 1998 panelon 04-08-2024 Anion gap [Moles/Vol] 5 mmol/L 3 - 13 mmol/L [facility] Calcium [Mass/Vol] 8.9 mg/dL 8.4 - 10. 4 mg/dL [facility] Chloride [Moles/Vol] 113 mmol/L High 98 - 10 7 mmol/L [facility] CO2 [Moles/Vol] 17 mmol/L Low 22 - 30 mmol/L [facility] Creatinine [Mass/Vol] 0.98 mg/dL 0.52 - 1.04 mg/dL [facility] GFR/1.73 sq M.predicted (S/P/Bld) [Vol rate/Area] 57.0 mL/min Low - PINF [facility] Comment on above: Calculation based on the Chronic Kidney Disease Epidemiology Collaboration (CKD-EPI) equation refit without adjustment for race Glucose [Mass/Vol] 116 mg/dL High 70 - 100 mg/dL [facility] Interpretation and review of laboratory results Abnormal [facility] Potassium [Moles/Vol] 4.5 mmol/L 3.5 - 5.1 mmol/L [facility] Sodium [Moles/Vol] 135 mmol/L 135 - 145 mmol/L [facility] Urea nitrogen [Mass/Vol] 18 mg/dL High 7 - 17 mg/dL [facility] CBC W Auto Differential pane l (Bld)on 04-08-2024 Basophils (Bld) [#/Vol] 0.0 10*3/uL 0.0 - 0.2 10*3/uL [facility] Basophils/100 WBC (Bld) 0.5 % 0.0 - 2.0 % [facility] Eosinophils (Bld) [#/Vol] 0.1 10*3/uL 0.0 - 0.5 10*3/uL [facility] [facility] Eosin[facility]/100 WBC (Bld) 0.9 % 0.0 - 6.0 % [facility] Erythrocyte distribution width (RBC) [Ratio] 14.8 % 11.5 - 15.0 % [facility] Hematocrit (Bld) [Volume fraction] 27.0 % Low 35.0 - 47.0 % [facility] Hemoglobin (Bld) [Mass/Vol] 8.6 g/dL Low 11.7 - 16.0 g/dL [facility] Immature granulocytes (Bld) [#/Vol] 0.0 10*3/uL NINF - 0.1 10*3/uL [facility] Immature granulocytes/100 WBC (Bld) 0.4 % 0.0 - 2.0 % [facility] Interpretation and review of laboratory results Abnormal [facility] Lymphocytes (Bld) [#/Vol] 1.7 10*3/uL 1.0 - 4.3 10*3/uL [facility] Lymphocytes/100 WBC (Bld) 23.3 % 15.0 - 45.0 % [facility] MCH (RBC) [Entitic mass] 30.2 pg 26.0 - 34.0 pg [facility] MCHC (RBC) [Mass/Vol] 31.9 % 30.5 - 36.0 % [facility] MCV (RBC) [Entitic vol] 94.7 fL 77.0 - 99.0 fL [facility] Monocytes (Bld) [#/Vol] 0.8 10*3/uL 0.0 - 0.9 10*3/uL [facility] Monocytes/100 WBC (Bld) 10.2 % 5.0 - 13.0 % [facility] Neutrophils (Bld) [#/Vol] 4.8 10*3/uL 1.8 - 7.5 10*3/uL [facility] Neutrophils/100 WBC (Bld) 64.7 % 38.0 - 82.0 % [facility] Nucleated RBC/100 WBC (Bld) [Ratio] 0.0 % [facility] Platelet mean volume (Bld) [Entitic vol] 10.1 fL 9.0 - 12.7 fL [facility] Platelets (Bld) [#/Vol] 223 10*3/uL 140 - 440 10*3/uL [facility] RBC (Bld) [#/Vol] 2.85 10*6/uL Low 3.80 - 5.2 0 10*6/uL [facility] WBC (Bld) [#/Vol] 7.5 10*3/uL 3.6 - 10.7 10*3/uL [facility] CBC WITH AUTO DIFFERENTIALon 04-08-2024 Basophils (Bld) [#/Vol] 0.0 10*3/uL Normal 0.0-0.2 [facility] Comment on above: Performed By: #### L [id number] ####Gas Shovel Operator: VELMA VALADEZ ([phone])[address] Basophils/100 WBC (Bld) 0.5 % Normal 0.0-2.0 [facility] Comment on above: Performed By: #### L [id number] ####Gas Shovel Operator: VELMA VALADEZ ([phone])[facility] ([facility])[address] [place] [address] Eosinophils (Bld) [#/Vol] 0.1 10*3/uL Normal 0.0-0.5 [facility] Comment on above: Performed By: #### L [id number] ####Gas Shovel Operator: VELMA VALADEZ ([phone])[facility])[address] [place] [address] Eosinophils/100 WBC (Bld) 0.9 % Normal 0.0-6.0 [facility] Comment on above: Performed By: #### L [id number] ####Gas Shovel Operator: VELMA VALADEZ ([phone])[address] Erythrocyte distribution width (RBC) [Ratio] 14.8 % Normal 11.5-15.0 [facility] Comment on above: Performed By: #### L [id number] ####Gas Shovel Operator: VELMA VALADEZ ([phone])[address] Hematocrit (Bld) [Volume fraction] 27.0 % Low 35.0-47.0 [facility] Comment on above: Performed By: #### L [id number] ####Gas Shovel Operator: VELMA VALADEZ ([phone])[address] Hemoglobin (Bld) [Mass/Vol] 8.6 g/dL Low 11.7-16.0 [facility] Comment on above: Performed By: #### L [id number] ####Gas Shovel Operator: VELMA VALADEZ ([phone])[address] IMMATURE GRANS % 0.4 % Normal 0.0-2.0 [facility] Comment on above: Performed By: #### L [id number] ####Gas Shovel Operator: VELMA VALADEZ ([phone])[address] IMMATURE GRANS ABSOLUTE 0.0 10*3/uL Normal <0.1 [facility] Comment on above: Performed By: #### L [id number] ####Gas Shovel Operator: VELMA VALADEZ ([phone])[address] Lymphocytes (Bld) [#/Vol] 1.7 10*3/uL Normal 1.0-4.3 [facility] Comment on above: Performed By: #### L [id number] ####Gas Shovel Operator: VELMA VALADEZ ([phone])[facility])[address] [place] [address] Lymphocytes/100 WBC (Bld) 23.3 % Normal 15.0-45.0 [facility] Comment on above: Performed By: #### L [id number] ####Gas Shovel Operator: VELMA VALADEZ ([phone])[facility])[address] [place] [address] MCH (RBC) [Entitic mass] 30.2 pg Normal 26.0-34.0 [facility] Comment on above: Performed By: #### L [id number] ####Gas Shovel Operator: VELMA VALADEZ ([phone])[facility])[address] [place] [address] MCHC 31.9 % Normal 30.5-36.0 [facility] Comment on above: Performed By: #### L [id number] ####Gas Shovel Operator: VELMA VALADEZ ([phone])[facility])[address] [place] [address] MCV (RBC) [Entitic vol] 94.7 fL Normal 77.0-99.0 S [facility] Comment on above: Performed By: #### L [id number] ####Gas Shovel Operator: VELMA VALADEZ ([phone])[facility])[address] [place] [address] Monocytes (Bld) [#/Vol] 0.8 10*3/uL Normal 0.0-0.9 [facility] Comment on above: Performed By: #### L [id number] ####Gas Shovel Operator: VELMA VALADEZ ([phone])[facility])[address] [place] [address] Monocytes/100 WBC (Bld) 10.2 % Normal 5.0-13.0 S [facility] Comment on above: Performed By: #### L [id number] ####Gas Shovel Operator: VELMA VALADEZ ([phone])[facility])[address] [place] [address] NEUTROPHILS ABSOLUTE 4.8 10*3/uL Normal 1.8-7.5 [facility] Comment on above: Performed By: #### L [id number] ####Gas Shovel Operator: VELMA VALADEZ ([phone])[facility] ([facility])[address] [place] [address] Neutrophils/100 WBC (Bld) 64.7 % Normal 38.0-82.0 [facility] Comment on above: Performed By: #### L [id number] ####Gas Shovel Operator: VELMA VALADEZ ([phone])[facility] ([facility])[address] [place] [address] NRBC 0.0 /100 WBCs Normal 0.0-2.0 [facility] Comment on above: Performed By: #### L [id number] ####Gas Shovel Operator: VELMA VALADEZ ([phone])[facility] ([facility])[address] [place] [address] Platelet mean volume (Bld) [Entitic vol] 10.1 fL Normal 9.0-12.7 [facility] Comment on above: Performed By: #### L [id number] ####Gas Shovel Operator: VELMA VALADEZ ([phone])[facility] ([facility])[address] [place] [address] Platelets (Bld) [#/Vol] 223 10*3/uL Normal 140-440 [facility] Comment on above: Performed By: #### L [id number] ####Gas Shovel Operator: VELMA VALADEZ ([phone])[facility] ([facility])[address] [place] [address] RBC (Bld) [#/Vol] 2.85 10*6/uL Low 3.80-5.20 [facility] Comment on above: Performed By: #### L [id number] ####Gas Shovel Operator: VELMA VALADEZ ([phone])[facility])[address] [place] [address] WBC (Bld) [#/Vol] 7.5 10*3/uL Normal 3.6-10.7 [facility] Comment on above: Performed By: #### [place] [id number] ####Gas Shovel Operator: VELMA VALADEZ ([phone])[facility])[address] [place] [address] [place] IDNon 04-08-2024 IDN Progressing Normal [facility] - Coagulationon 0 04-08-2024 PT Coag (Bld) [Time] 11.2 s 9.0 - 1 2.0 s [facility] No Panel Informationon 04-08 [facility] PROTHROMBIN TIMEon INR Coag (PPP) [Relative time] 1.0 {INR} Normal 0.9-1.1 [facility] Comment on above: Result Comment: Timothy mmended [...] Myocardial Infarction Performed By: #### [place] [id number], [id number] ####Gas Shovel Operator: VELMA VALADEZ ([phone])[facility])[address] [place] [address] PT Coag (PPP) [Time] 11.2 s Normal 9.0-12.0 [facility] Comment on above: Performed By: #### [place] [id number], [id number] ####Gas Shovel Operator: VELMA VALADEZ ([phone])[facility])[address] [place] [address] PT Coag (Bld) [Time]on 04-08 INR Coag (PPP) [Relative time] 1.0 {INR} 0.9 - 1.1 [facility] Comment on above: Recommended Anticoag ulant Therapy: [...] Interpretation and review of laboratory results Normal [facility] Progress Noteon 04-08-2024 Progress Note Normal [facility] Progress Note Normal [facility] aPTT Coag (Bld) [Time]on aPTT Coag (PPP) [Time] 51.5 s High 20.0 - 30.5 s [facility] Interpretation and review of laboratory results Abnormal [facility] NOTE: The therapeuti c time for Heparin anticoagulation, based on Xa activity inhibition, is an APTT of 46-80 seconds. [facility] aPTT Coag (PPP) [Time] 59.8 s High 20.0 - 30.5 s [facility] Interpretation and review of laboratory results Abnormal [facility] NOTE: The therapeuti c time for Heparin anticoagulation, based on Xa activity inhibition, is an APTT of 46-80 seconds. [facility] aPTT Coag (PPP) [Time] 41.4 s High 20.0 - 30.5 s [facility] Interpretation and review of laboratory results Abnormal [facility] NOTE: The therapeuti c time for Heparin anticoagulation, based on Xa activity inhibition, is an APTT of 46-80 seconds. [facility] APTTon 04-07-2024 aPTT Coag (Bld) [Time] 54.7 s High 20.0-30.5 [facility] Comment on above: Result Comment: BUBBA Garcia COMMENTS:NOTE: The therapeutic time for Heparin anticoagulation, based on Xa activity inhibition, is an APTT of 46-80 seconds. Performed By: #### L [id number] ####Gas Shovel Operator: VELMA VALADEZ ([phone])[facility] ([address] aPTT Coag (Bld) [Time] 77.7 s High 20.0-30.5 [facility] Comment on above: Result Comment: BUBBA Garcia COMMENTS:NOTE: The therapeutic time for Heparin anticoagulation, based on Xa activity inhibition, is an APTT of 46-80 seconds. Performed By: #### L [id number], [id number] ####Gas Shovel Operator: VELMA VALADEZ ([phone])[facility] ([facility])[address] [place] [address] BASIC METABOLIC PANELon 09-2 Anion gap [Moles/Vol] 4 mmol/L Normal 3-13 [facility] Comment on above: Performed By: #### L [id number] ####Gas Shovel Operator: VELMA VALADEZ ([phone])[facility] ([facility])[address] [place] [address] Calcium [Mass/Vol] 8.8 mg/dL Normal 8.4-10.4 [facility] Comment on above: Performed By: #### L AB15 ####Gas Shovel Operator: VELMA VALADEZ ([phone])[facility] ([facility])[address] [place] [address] Chloride [Moles/Vol] 115 mmol/L High 98-107 [facility] Comment on above: Performed By: #### L AB15 ####Gas Shovel Operator: VELMA VALADEZ ([phone])[facility] ([facility])[address] [place] [address] CO2 [Moles/Vol] 17 mmol/L Low 22-30 [facility] Comment on above: Performed By: #### L AB15 ####Gas Shovel Operator: VELMA VALADEZ ([phone])[facility] ([facility])[address] [place] [address] Creatinine [Mass/Vol] 0.90 mg/dL Normal 0.52-1.04 [facility] Comment on above: Performed By: #### L AB15 ####Gas Shovel Operator: VELMA VALADEZ ([phone])[facility])[address] [place] [address] GLOMERULAR FILTRATION RATE ML/MIN/1.73 SQ M.PREDICTED 63.2 mL/min/1.73m*2 Normal >60.0 [facility] Comment on above: Result Comment: Calc ulation based on the Chronic Kidney Disease Epidemiology Collaboration (CKD-EPI) equation refit without adjustment for race Performed By: #### L AB15 ####Gas Shovel Operator: VELMA VALADEZ ([phone])[facility] ([facility])[address] [place] [address] Glucose [Mass/Vol] 139 mg/dL High 70-100 [facility] Comment on above: Performed By: #### L AB15 ####Gas Shovel Operator: VELMA VALADEZ ([phone])[facility] ([facility])[address] [place] [address] Potassium [Moles/Vol] 4.7 mmol/L Normal 3.5-5.1 [facility] Comment on above: Performed By: #### L AB15 ####Gas Shovel Operator: VELMA VALADEZ ([phone])[facility] ([facility])[address] [place] [address] Sodium [Moles/Vol] 136 mmol/L Normal 135-145 [facility] Comment on above: Performed By: #### L AB15 ####Gas Shovel Operator: VELMA VALADEZ ([phone])[facility] ([facility])[address] [place] [address] Urea nitrogen [Mass/Vol] 16 mg/dL Normal 7-17 [facility] Comment on above: Performed By: #### L AB15 ####Gas Shovel Operator: VELMA VALADEZ ([phone])[facility] ([facility])[address] [place] [address] Basic metabolic 1998 panelon 04-07-2024 Anion gap [Moles/Vol] 4 mmol/L 3 - 13 mmol/L [facility] Calcium [Mass/Vol] 8.8 mg/dL 8.4 - 10. 4 mg/dL [facility] Chloride [Moles/Vol] 115 mmol/L High 98 - 10 7 mmol/L [facility] CO2 [Moles/Vol] 17 mmol/L Low 22 - 30 mmol/L [facility] Creatinine [Mass/Vol] 0.90 mg/dL 0.52 - 1.04 mg/dL [facility] GFR/1.73 sq M.predicted (S/P/Bld) [Vol rate/Area] 63.2 mL/min - PINF [facility] Comment on above: Calculation based on the Chronic Kidney Disease Epidemiology Collaboration (CKD-EPI) equation refit without adjustment for race Glucose [Mass/Vol] 139 mg/dL High 70 - 100 mg/dL [facility] Interpretation and review of laboratory results Abnormal [facility] Potassium [Moles/Vol] 4.7 mmol/L 3.5 - 5.1 mmol/L [facility] Sodium [Moles/Vol] 136 mmol/L 135 - 145 mmol/L [facility] Urea nitrogen [Mass/Vol] 16 mg/dL 7 - 17 mg/dL [facility] CBC W Auto Differential pane l (Bld)on 04-07-2024 Basophils (Bld) [#/Vol] 0.0 10*3/uL 0.0 - 0.2 10*3/uL [facility] Basophils/100 WBC (Bld) 0.2 % 0.0 - 2.0 % [facility] Eosinophils (Bld) [#/Vol] 0.0 10*3/uL 0.0 - 0.5 10*3/uL [facility] Eosinophils/100 WBC (Bld) 0.0 % 0.0 - 6.0 % [facility] Erythrocyte distribution width (RBC) [Ratio] 14.3 % 11.5 - 15.0 % [facility] Hematocrit (Bld) [Volume fraction] 27.0 % Low 35.0 - 47.0 % [facility] Hemoglobin (Bld) [Mass/Vol] 8.6 g/dL Low 11.7 - 16.0 g/dL [facility] Immature granulocytes (Bld) [#/Vol] 0.0 10*3/uL NINF - 0.1 10*3/uL [facility] Immature granulocytes/100 WBC (Bld) 0.5 % 0.0 - 2.0 % [facility] Interpretation and review of laboratory results Abnormal [facility] Lymphocytes (Bld) [#/Vol] 0.8 10*3/uL Low 1.0 - 4.3 10*3/uL [facility] Lymphocytes/100 WBC (Bld) 19.2 % 15.0 - 45.0 % [facility] MCH (RBC) [Entitic mass] 30.1 pg 26.0 - 34.0 pg [facility] MCHC (RBC) [Mass/Vol] 31.9 % 30.5 - 36.0 % [facility] MCV (RBC) [Entitic vol] 94.4 fL 77.0 - 99.0 fL [facility] Monocytes (Bld) [#/Vol] 0.3 10*3/uL 0.0 - 0.9 10*3/uL [facility] Monocytes/100 WBC (Bld) 7.5 % 5.0 - 13.0 % [facility] Neutrophils (Bld) [#/Vol] 2.9 10*3/uL 1.8 - 7.5 10*3/uL [facility] Neutrophils/100 WBC (Bld) 72.6 % 38.0 - 82.0 % [facility] Nucleated RBC/100 WBC (Bld) [Ratio] 0.0 % [facility] Platelet mean volume (Bld) [Entitic vol] 10.5 fL 9.0 - 12.7 fL [facility] Platelets (Bld) [#/Vol] 202 10*3/uL 140 - 440 10*3/uL [facility] RBC (Bld) [#/Vol] 2.86 10*6/uL Low 3.80 - 5.2 0 10*6/uL [facility] WBC (Bld) [#/Vol] 4.0 10*3/uL 3.6 - 10.7 10*3/uL [facility] CBC WITH AUTO DIFFERENTIALon 04-07-2024 Basophils (Bld) [#/Vol] 0.0 10*3/uL Normal 0.0-0.2 [facility] Comment on above: Performed By: #### L [id number] ####Gas Shovel Operator: VELMA VALADEZ ([phone])[address] Basophils/100 WBC (Bld) 0.2 % Normal 0.0-2.0 S [facility] Comment on above: Performed By: #### L [id number] ####Gas Shovel Operator: VELMA VALADEZ ([phone])[facility])[address] [place] [address] Eosinophils (Bld) [#/Vol] 0.0 10*3/uL Normal 0.0-0.5 [facility] Comment on above: Performed By: #### L [id number] ####Gas Shovel Operator: VELMA VALADEZ ([phone])[address] Eosinophils/100 WBC (Bld) 0.0 % Normal 0.0-6.0 [facility] Comment on above: Performed By: #### L [id number] ####Gas Shovel Operator: VELMA VALADEZ ([phone])[facility])[address] [place] [address] Erythrocyte distribution width (RBC) [Ratio] 14.3 % Normal 11.5-15.0 [facility] Comment on above: Performed By: #### L [id number] ####Gas Shovel Operator: VELMA VALADEZ ([phone])[address] Hematocrit (Bld) [Volume fraction] 27.0 % Low 35.0-47.0 [facility] Comment on above: Performed By: #### L [id number] ####Gas Shovel Operator: VELMA VALADEZ ([phone])[address] Hemoglobin (Bld) [Mass/Vol] 8.6 g/dL Low 11.7-16.0 [facility] Comment on above: Performed By: #### L [id number] ####Gas Shovel Operator: VELMA VALADEZ ([phone])[address] IMMATURE GRANS % 0.5 % Normal 0.0-2.0 [facility] Comment on above: Performed By: #### L [id number] ####Gas Shovel Operator: VELMA VALADEZ ([phone])[address] IMMATURE GRANS ABSOLUTE 0.0 10*3/uL Normal <0.1 [facility] Comment on above: Performed By: #### L [id number] ####Gas Shovel Operator: VELMA VALADEZ ([phone])[facility])[address] [place] [address] Lymphocytes (Bld) [#/Vol] 0.8 10*3/uL Low 1.0-4.3 [facility] Comment on above: Performed By: #### L [id number] ####Gas Shovel Operator: VELMA VALADEZ ([phone])[facility])[address] [place] [address] Lymphocytes/100 WBC (Bld) 19.2 % Normal 15.0-45.0 [facility] Comment on above: Performed By: #### L [id number] ####Gas Shovel Operator: VELMA VALADEZ ([phone])[facility])[address] [place] [address] MCH (RBC) [Entitic mass] 30.1 pg Normal 26.0-34.0 [facility] Comment on above: Performed By: #### L [id number] ####Gas Shovel Operator: VELMA VALADEZ ([phone])[facility])[address] [place] [address] MCHC 31.9 % Normal 30.5-36.0 [facility] Comment on above: Performed By: #### L [id number] ####Gas Shovel Operator: VELMA VALADEZ ([phone])[facility])[address] [place] [address] MCV (RBC) [Entitic vol] 94.4 fL Normal 77.0-99.0 S [facility] Comment on above: Performed By: #### L [id number] ####Gas Shovel Operator: VELMA VALADEZ ([phone])[facility])[address] [place] [address] Monocytes (Bld) [#/Vol] 0.3 10*3/uL Normal 0.0-0.9 [facility] Comment on above: Performed By: #### L [id number] ####Gas Shovel Operator: VELMA VALADEZ ([phone])[facility])[address] [place] [address] Monocytes/100 WBC (Bld) 7.5 % Normal 5.0-13.0 [facility] Comment on above: Performed By: #### L [id number] ####Gas Shovel Operator: VELMA VALADEZ ([phone])[facility] ([facility])[address] [place] [address] NEUTROPHILS ABSOLUTE 2.9 10*3/uL Normal 1.8-7.5 [facility] Comment on above: Performed By: #### L [id number] ####Gas Shovel Operator: VELMA VALADEZ ([phone])[facility] ([facility])[address] [place] [address] Neutrophils/100 WBC (Bld) 72.6 % Normal 38.0-82.0 [facility] Comment on above: Performed By: #### L [id number] ####Gas Shovel Operator: VELMA VALADEZ ([phone])[facility] ([facility])[address] [place] [address] NRBC 0.0 /100 WBCs Normal 0.0-2.0 [facility] Comment on above: Performed By: #### L [id number] ####Gas Shovel Operator: VELMA VALADEZ ([phone])[facility] ([facility])[address] [place] [address] Platelet mean volume (Bld) [Entitic vol] 10.5 fL Normal 9.0-12.7 [facility] Comment on above: Performed By: #### L [id number] ####Gas Shovel Operator: VELMA VALADEZ ([phone])[facility] ([facility])[address] [place] [address] Platelets (Bld) [#/Vol] 202 10*3/uL Normal 140-440 [facility] Comment on above: Performed By: #### L [id number] ####Gas Shovel Operator: VELMA VALADEZ ([phone])[facility] ([facility])[address] [place] [address] RBC (Bld) [#/Vol] 2.86 10*6/uL Low 3.80-5.20 [facility] Comment on above: Performed By: #### L [id number] ####Gas Shovel Operator: VELMA VALADEZ ([phone])[facility])[address] [place] [address] WBC (Bld) [#/Vol] 4.0 10*3/uL Normal 3.6-10.7 [facility] Comment on above: Performed By: #### L [id number] ####Gas Shovel Operator: VELMA VALADEZ ([phone])[facility])[address] [place] [address] IDNon 04-07-2024 IDN Normal [facility] - Coagulationon 0 04-07-2024 PT Coag (Bld) [Time] 11.1 s 9.0 - 1 2.0 s [facility] No Panel Informationon 04-07 [facility] Nursing Noteon 04-07-2024 Nursing Note NO changes to hepari n infusion at this time. Normal [facility] PROTHROMBIN TIMEon INR Coag (PPP) [Relative time] 1.0 {INR} Normal 0.9-1.1 [facility] Comment on above: Result Comment: Timothy mmended [...] Myocardial Infarction Performed By: #### L [id number], [id number] ####Gas Shovel Operator: VELMA VALADEZ ([phone])[facility])[address] [place] [address] PT Coag (PPP) [Time] 11.1 s Normal 9.0-12.0 [facility] Comment on above: Performed By: #### L [id number], [id number] ####Gas Shovel Operator: VELMA VALADEZ ([phone])[facility] ([facility])[address] [place] [address] PT Coag (Bld) [Time]on 04-07 INR Coag (PPP) [Relative time] 1.0 {INR} 0.9 - 1.1 [facility] Comment on above: Recommended Anticoag ulant Therapy: [...] Interpretation and review of laboratory results Normal [facility] Progress Noteon 04-07-2024 Progress Note Normal [facility] Progress Note Normal [facility] Progress Note Normal [facility] aPTT Coag (Bld) [Time]on aPTT Coag (PPP) [Time] 54.7 s High 20.0 - 30.5 s [facility] Interpretation and review of laboratory results Abnormal [facility] NOTE: The therapeuti c time for Heparin anticoagulation, based on Xa activity inhibition, is an APTT of 46-80 seconds. [facility] aPTT Coag (PPP) [Time] 77.7 s High 20.0 - 30.5 s [facility] Interpretation and review of laboratory results Abnormal [facility] NOTE: The therapeuti c time for Heparin anticoagulation, based on Xa activity inhibition, is an APTT of 46-80 seconds. [facility] [id number] 04-06-2024 [id number] Normal [facility] APTTon 04-06-2024 aPTT Coag (Bld) [Time] 43.3 s High 20.0-30.5 [facility] Comment on above: Result Comment: BUBBA Garcia COMMENTS:NOTE: The therapeutic time for Heparin anticoagulation, based on Xa activity inhibition, is an APTT of 46-80 seconds. Performed By: #### L [id number] ####Gas Shovel Operator: VELMA VALADEZ ([phone])[facility] ([address] [address] [facility] aPTT Coag (Bld) [Time] 97.6 s High 20.0-30.5 [facility] Comment on above: Result Comment: BUBBA Garcia COMMENTS:NOTE: The therapeutic time for Heparin anticoagulation, based on Xa activity inhibition, is an APTT of 46-80 seconds. Performed By: #### L [id number] ####Gas Shovel Operator: VELMA VALADEZ ([phone])[facility] ([facility])[address] [place] [address] Anesthesia Noteon 04-06-2024 Anesthesia Note Normal [facility] Anesthesia Note Normal [facility] BASIC METABOLIC PANELon 03-19 Anion gap [Moles/Vol] 4 mmol/L Normal 3-13 [facility] Comment on above: Performed By: #### L AB15 ####Gas Shovel Operator: VELMA VALADEZ ([phone])[facility] ([facility])[address] [place] [address] Calcium [Mass/Vol] 8.9 mg/dL Normal 8.4-10.4 [facility] Comment on above: Performed By: #### L AB15 ####Gas Shovel Operator: VELMA VALADEZ ([phone])[facility] ([facility])[address] [place] [address] Chloride [Moles/Vol] 114 mmol/L High 98-107 [facility] Comment on above: Performed By: #### L AB15 ####Gas Shovel Operator: VELMA VALADEZ ([phone])[facility] ([facility])[address] [place] [address] CO2 [Moles/Vol] 18 mmol/L Low 22-30 [facility] Comment on above: Performed By: #### L AB15 ####Gas Shovel Operator: VELMA [phone])[facility])[address] [place] [address] Creatinine [Mass/Vol] 0.96 mg/dL Normal 0.52-1.04 [facility] Comment on above: Performed By: #### L AB15 ####Gas Shovel Operator: VELMA [phone])[facility] ([facility])[address] [place] [address] GLOMERULAR FILTRATION RATE ML/MIN/1.73 SQ M.PREDICTED 58.5 mL/min/1.73m*2 Low >60.0 [facility] Comment on above: Result Comment: Calc ulation based on the Chronic Kidney Disease Epidemiology Collaboration (CKD-EPI) equation refit without adjustment for race Performed By: #### L AB15 ####Gas Shovel Operator: VELMA VALADEZ ([phone])[facility] ([facility])[address] [place] [address] Glucose [Mass/Vol] 97 mg/dL Normal 70-100 [facility] Comment on above: Performed By: #### L AB15 ####Gas Shovel Operator: VELMA VALADEZ ([phone])[facility])[address] [place] [address] Potassium [Moles/Vol] 4.6 mmol/L Normal 3.5-5.1 [facility] Comment on above: Performed By: #### L AB15 ####Gas Shovel Operator: VELMA VALADEZ ([phone])[facility] ([facility])[address] [place] [address] Sodium [Moles/Vol] 135 mmol/L Normal 135-145 [facility] Comment on above: Performed By: #### L AB15 ####Gas Shovel Operator: EVLMA VALADEZ ([phone])[facility])[address] [place] [address] Urea nitrogen [Mass/Vol] 17 mg/dL Normal 7-17 [facility] Comment on above: Performed By: #### L AB15 ####Gas Shovel Operator: VELMA VALADEZ ([phone])[facility])[address] [place] [address] BLOOD TYPE AND SCREEN GELon 04-06-2024 ABO GROUPING AB Normal [facility] Comment on above: Performed By: #### L [id number] ####Gas Shovel Operator: VELMA VALADEZ ([phone])[facility]OD [facility] ([facility])[address] [place] [address] [place] RH TYPE IN BLOOD Positive Normal [facility] Comment on above: Performed By: #### L [id number] ####Gas Shovel Operator: VELMA VALADEZ ([phone])[facility] ([facility])[address] [place] [address] Basic metabolic 1998 panelon 04-06-2024 Anion gap [Moles/Vol] 4 mmol/L 3 - 13 mmol/L [facility] Calcium [Mass/Vol] 8.9 mg/dL 8.4 - 10. 4 mg/dL [facility] Chloride [Moles/Vol] 114 mmol/L High 98 - 10 7 mmol/L [facility] CO2 [Moles/Vol] 18 mmol/L Low 22 - 30 mmol/L [facility] Creatinine [Mass/Vol] 0.96 mg/dL 0.52 - 1.04 mg/dL [facility] GFR/1.73 sq M.predicted (S/P/Bld) [Vol rate/Area] 58.5 mL/min Low - PINF [facility] Comment on above: Calculation based on the Chronic Kidney Disease Epidemiology Collaboration (CKD-EPI) equation refit without adjustment for race Glucose [Mass/Vol] 97 mg/dL 70 - 100 mg/dL [facility] Interpretation and review of laboratory results Abnormal [facility] Potassium [Moles/Vol] 4.6 mmol/L 3.5 - 5.1 mmol/L [facility] Sodium [Moles/Vol] 135 mmol/L 135 - 145 mmol/L [facility] Urea nitrogen [Mass/Vol] 17 mg/dL 7 - 17 mg/dL [facility] Blood type and Crossmatch pa juan (Bld)on 04-06-2024 ABO group Nom (Bld) AB [facility] Blood group antibody screen GEL Ql Negative [facility] D Ag [facility]) [facility] CARECOORDon 04-06-2024 CARECOORD Normal [facility] CARECONEW [place] Normal [facility] CBC W Auto Differential pane l (Bld)on 04-06-2024 Basophils (Bld) [#/Vol] 0.1 10*3/uL 0.0 - 0.2 10*3/uL [facility] Basophils/100 WBC (Bld) 1.1 % 0.0 - 2.0 % [facility] Eosinophils (Bld) [#/Vol] 0.1 10*3/uL 0.0 - 0.5 10*3/uL [facility] Eosinophils/100 WBC (Bld) 2.7 % 0.0 - 6.0 % [facility] Erythrocyte distribution width (RBC) [Ratio] 14.3 % 11.5 - 15.0 % [facility] Hematocrit (Bld) [Volume fraction] 29.8 % Low 35.0 - 47.0 % [facility] Hemoglobin (Bld) [Mass/Vol] 9.7 g/dL Low 11.7 - 16.0 g/dL [facility] Immature granulocytes (Bld) [#/Vol] 0.0 10*3/uL NINF - 0.1 10*3/uL [facility] Immature granulocytes/100 WBC (Bld) 0.2 % 0.0 - 2.0 % [facility] Interpretation and review of laboratory results Abnormal [facility] Lymphocytes (Bld) [#/Vol] 1.5 10*3/uL 1.0 - 4.3 10*3/uL [facility] Lymphocytes/100 WBC (Bld) 33.0 % 15.0 - 45.0 % [facility] MCH (RBC) [Entitic mass] 30.3 pg 26.0 - 34.0 pg [facility] MCHC (RBC) [Mass/Vol] 32.6 % 30.5 - 36.0 % [facility] MCV (RBC) [Entitic vol] 93.1 fL 77.0 - 99.0 fL [facility] Monocytes (Bld) [#/Vol] 0.5 10*3/uL 0.0 - 0.9 10*3/uL [facility] Monocytes/100 WBC (Bld) 10.5 % 5.0 - 13.0 % [facility] Neutrophils (Bld) [#/Vol] 2.4 10*3/uL 1.8 - 7.5 10*3/uL [facility] Neutrophils/100 WBC (Bld) 52.5 % 38.0 - 82.0 % [facility] Nucleated RBC/100 WBC (Bld) [Ratio] 0.0 % [facility] Platelet mean volume (Bld) [Entitic vol] 10.4 fL 9.0 - 12.7 fL [facility] Platelets (Bld) [#/Vol] 207 10*3/uL 140 - 440 10*3/uL [facility] RBC (Bld) [#/Vol] 3.20 10*6/uL Low 3.80 - 5.2 0 10*6/uL [facility] WBC (Bld) [#/Vol] 4.5 10*3/uL 3.6 - 10.7 10*3/uL [facility] CBC WITH AUTO DIFFERENTIALon 04-06-2024 Basophils (Bld) [#/Vol] 0.1 10*3/uL Normal 0.0-0.2 [facility] Comment on above: Performed By: #### L [id number] ####Gas Shovel Operator: VELMA VALADEZ ([phone])[facility] ([facility])[address] [place] [address] Basophils/100 WBC (Bld) 1.1 % Normal 0.0-2.0 S [facility] Comment on above: Performed By: #### L [id number] ####Gas Shovel Operator: VELMA VALADEZ ([phone])[facility] ([facility])[address] [place] [address] Eosinophils (Bld) [#/Vol] 0.1 10*3/uL Normal 0.0-0.5 [facility] Comment on above: Performed By: #### L [id number] ####Gas Shovel Operator: VELMA VALADEZ ([phone])[facility] ([facility])[address] [place] [address] Eosinophils/100 WBC (Bld) 2.7 % Normal 0.0-6.0 [facility] Comment on above: Performed By: #### L [id number] ####Gas Shovel Operator: VELMA VALADEZ ([phone])[facility] ([facility])[address] [place] [address] Erythrocyte distribution width (RBC) [Ratio] 14.3 % Normal 11.5-15.0 [facility] Comment on above: Performed By: #### L [id number] ####Gas Shovel Operator: VELMA [phone])[facility])[address] [place] [address] Hematocrit (Bld) [Volume fraction] 29.8 % Low 35.0-47.0 [facility] Comment on above: Performed By: #### L [id number] ####Gas Shovel Operator: VELMA VALADEZ ([phone])[facility])[address] [place] [address] Hemoglobin (Bld) [Mass/Vol] 9.7 g/dL Low 11.7-16.0 [facility] Comment on above: Performed By: #### L [id number] ####Gas Shovel Operator: VEMLA VALADEZ ([phone])[facility])[address] [place] [address] IMMATURE GRANS % 0.2 % Normal 0.0-2.0 [facility] Comment on above: Performed By: #### L [id number] ####Gas Shovel Operator: VELMA VALADEZ ([phone])[facility])[address] [place] [address] IMMATURE GRANS ABSOLUTE 0.0 10*3/uL Normal <0.1 [facility] Comment on above: Performed By: #### L [id number] ####Gas Shovel Operator: VELMA VALADEZ ([phone])[facility])[address] [place] [address] Lymphocytes (Bld) [#/Vol] 1.5 10*3/uL Normal 1.0-4.3 [facility] Comment on above: Performed By: #### L [id number] ####Gas Shovel Operator: VELMA VALADEZ ([phone])[facility])[address] [place] [address] Lymphocytes/100 WBC (Bld) 33.0 % Normal 15.0-45.0 [facility] Comment on above: Performed By: #### L [id number] ####Gas Shovel Operator: VELMA VALADEZ ([phone])[facility])[address] [place] [address] MCH (RBC) [Entitic mass] 30.3 pg Normal 26.0-34.0 [facility] Comment on above: Performed By: #### L [id number] ####Gas Shovel Operator: VELMA VALADEZ ([phone])[facility])[address] [place] [address] MCHC 32.6 % Normal 30.5-36.0 [facility] Comment on above: Performed By: #### L [id number] ####Gas Shovel Operator: VELMA VALADEZ ([phone])[facility])[address] [place] [address] MCV (RBC) [Entitic vol] 93.1 fL Normal 77.0-99.0 S [facility] Comment on above: Performed By: #### L [id number] ####Gas Shovel Operator: VELMA VALADEZ ([phone])[facility])[address] [place] [address] Monocytes (Bld) [#/Vol] 0.5 10*3/uL Normal 0.0-0.9 [facility] Comment on above: Performed By: #### L [id number] ####Gas Shovel Operator: VELMA VALADEZ ([phone])[facility])[address] [place] [address] Monocytes/100 WBC (Bld) 10.5 % Normal 5.0-13.0 [facility] Comment on above: Performed By: #### L [id number] ####Gas Shovel Operator: VELMA VALADEZ ([phone])[facility])[address] [place] [address] NEUTROPHILS ABSOLUTE 2.4 10*3/uL Normal 1.8-7.5 [facility] Comment on above: Performed By: #### L [id number] ####Gas Shovel Operator: VELMA VALADEZ ([phone])[facility])[address] [place] [address] Neutrophils/100 WBC (Bld) 52.5 % Normal 38.0-82.0 [facility] Comment on above: Performed By: #### L [id number] ####Gas Shovel Operator: VELMA VALADEZ ([phone])[facility] ([facility])[address] [place] [address] NRBC 0.0 /100 WBCs Normal 0.0-2.0 [facility] Comment on above: Performed By: #### L [id number] ####Gas Shovel Operator: VELMA VALADEZ ([phone])[facility])[address] [place] [address] Platelet mean volume (Bld) [Entitic vol] 10.4 fL Normal 9.0-12.7 [facility] Comment on above: Performed By: #### L [id number] ####Gas Shovel Operator: VELMA VALADEZ ([phone])[facility])[address] [place] [address] Platelets (Bld) [#/Vol] 207 10*3/uL Normal 140-440 [facility] Comment on above: Performed By: #### L [id number] ####Gas Shovel Operator: VELMA VALADEZ ([phone])[facility])[address] [place] [address] RBC (Bld) [#/Vol] 3.20 10*6/uL Low 3.80-5.20 [facility] Comment on above: Performed By: #### L [id number] ####Gas Shovel Operator: VELMA VALADEZ ([phone])[facility])[address] [place] [address] WBC (Bld) [#/Vol] 4.5 10*3/uL Normal 3.6-10.7 [facility] Comment on above: Performed By: #### L [id number] ####Gas Shovel Operator: VELMA VALADEZ ([phone])[facility])[address] [place] [address] No Panel Informationon 04-06 There is no interpretation needed for this exam. IMAGING Nursing Noteon 04-06-2024 Nursing Note Patient report rader d to 4N RN and denies any further questions. Patient resting comfortably and no signs of distress. Per resident patient to lay flat for 2 hours and restart heparin GTT at 1215. Transport notified. Normal [facility] Op Noteon 04-06-2024 Op Note Normal [facility] Progress Noteon 04-06-2024 Progress Note Normal [facility] Progress Note Normal [facility] Progress Note Normal [facility] aPTT Coag (Bld) [Time]on aPTT Coag (PPP) [Time] 43.3 s High 20.0 - 30.5 s [facility] Interpretation and review of laboratory results Abnormal [facility] NOTE: The therapeuti c time for Heparin anticoagulation, based on Xa activity inhibition, is an APTT of 46-80 seconds. [facility] aPTT Coag (PPP) [Time] 97.6 s High 20.0 - 30.5 s [facility] Interpretation and review of laboratory results Abnormal [facility] NOTE: The therapeuti c time for Heparin anticoagulation, based on Xa activity inhibition, is an APTT of 46-80 seconds. [facility] 36on 04-05-2024 36 Surgery: Inpatient R LE venous mechanical thrombectomy Date of surgery: 04/06/24 Pre-testing: inpatient CPT codes: 72941 ICD 10: I82.401 Post-op or OV: Adriane to schedule Reps: Selvin Elaine) notified 04/05/24 Normal [facility] APTTon 04-05-2024 aPTT Coag (Bld) [Time] 76.6 s High 20.0-30.5 [facility] Comment on above: Result Comment: BUBBA Garcia COMMENTS:NOTE: The therapeutic time for Heparin anticoagulation, based on Xa activity inhibition, is an APTT of 46-80 seconds. Performed By: #### L [id number], [id number] ####Gas Shovel Operator: VELMA VALADEZ ([phone])[address] aPTT Coag (Bld) [Time] 69.9 s High 20.0-30.5 [facility] Comment on above: Result Comment: BUBBA Garcia COMMENTS:NOTE: The therapeutic time for Heparin anticoagulation, based on Xa activity inhibition, is an APTT of 46-80 seconds. Performed By: #### L [id number] ####Gas Shovel Operator: VELMA VALADEZ ([phone])[facility] ([facility])[address] [place] [address] aPTT Coag (Bld) [Time] 88.8 s High 20.0-30.5 [facility] Comment on above: Result Comment: BUBBA Garcia COMMENTS:NOTE: The therapeutic time for Heparin anticoagulation, based on Xa activity inhibition, is an APTT of 46-80 seconds. Performed By: #### L [id number], [id number] ####Gas Shovel Operator: VELMA VALADEZ ([phone])[facility])[address] [place] [address] aPTT Coag (Bld) [Time] 109.7 s High 20.0-30.5 [facility] Comment on above: Result Comment: BUBBA Garcia COMMENTS:NOTE: The therapeutic time for Heparin anticoagulation, based on Xa activity inhibition, is an APTT of 46-80 seconds. Performed By: #### L [id number] ####Gas Shovel Operator: VELMA VALADEZ ([phone])[facility] ([facility])[address] [place] [address] BASIC METABOLIC PANELon 09- Anion gap [Moles/Vol] 3 mmol/L Normal 3-13 [facility] Comment on above: Performed By: #### L [id number] ####Gas Shovel Operator: VELMA VALADEZ ([phone])[facility] ([facility])[address] [place] [address] Calcium [Mass/Vol] 8.7 mg/dL Normal 8.4-10.4 [facility] Comment on above: Performed By: #### L AB15 ####Gas Shovel Operator: VELMA VALADEZ ([phone])[facility])[address] [place] [address] Chloride [Moles/Vol] 113 mmol/L High 98-107 [facility] Comment on above: Performed By: #### L AB15 ####Gas Shovel Operator: VELMA [phone])[facility])[address] [place] [address] CO2 [Moles/Vol] 17 mmol/L Low 22-[address] [facility] Comment on above: Performed By: #### L AB15 ####Gas Shovel Operator: VELMA VALADEZ ([phone])[facility] [place] [address] Creatinine [Mass/Vol] 1.12 mg/dL High 0.52-1.04 [facility] Comment on above: Performed By: #### L AB15 ####Gas Shovel Operator: VELMA VALADEZ ([phone])[facility] ([facility])[address] [place] [address] GLOMERULAR FILTRATION RATE ML/MIN/1.73 SQ M.PREDICTED 48.6 mL/min/1.73m*2 Low >60.0 [facility] Comment on above: Result Comment: Calc ulation based on the Chronic Kidney Disease Epidemiology Collaboration (CKD-EPI) equation refit without adjustment for race Performed By: #### L [id number] ####Gas Shovel Operator: VELMA VALADEZ ([phone])[facility] [place] [address] Glucose [Mass/Vol] 102 mg/dL High 70-100 [facility] Comment on above: Performed By: #### L AB15 ####Gas Shovel Operator: VELMA VAALDEZ ([phone])[facility] ([facility])[address] [place] [address] Potassium [Moles/Vol] 4.8 mmol/L Normal 3.5-5.1 [facility] Comment on above: Performed By: #### L AB15 ####Gas Shovel Operator: VELMA VALADEZ ([phone])[facility] ([facility])[address] [place] [address] Sodium [Moles/Vol] 133 mmol/L Low 135-145 [facility] Comment on above: Performed By: #### L AB15 ####Gas Shovel Operator: VEMLA VALADEZ ([phone])[facility] ([facility])[address] [place] [address] Urea nitrogen [Mass/Vol] 25 mg/dL High 7-17 [facility] Comment on above: Performed By: #### L [id number] ####Gas Shovel Operator: VELMA VALADEZ ([phone])[facility] ([facility])[address] Basic metabolic 1998 panelon 04-05-2024 Anion gap [Moles/Vol] 3 mmol/L 3 - 13 mmol/L [facility] Calcium [Mass/Vol] 8.7 mg/dL 8.4 - 10. 4 mg/dL [facility] Chloride [Moles/Vol] 113 mmol/L High 98 - 10 7 mmol/L [facility] CO2 [Moles/Vol] 17 mmol/L Low 22 - 30 mmol/L [facility] Creatinine [Mass/Vol] 1.12 mg/dL High 0.52 - 1.04 mg/dL [facility] GFR/1.73 sq M.predicted (S/P/Bld) [Vol rate/Area] 48.6 mL/min Low - PINF [facility] Comment on above: Calculation based on the Chronic Kidney Disease Epidemiology Collaboration (CKD-EPI) equation refit without adjustment for race Glucose [Mass/Vol] 102 mg/dL High 70 - 100 mg/dL [facility] Interpretation and review of laboratory results Abnormal [facility] Potassium [Moles/Vol] 4.8 mmol/L 3.5 - 5.1 mmol/L [facility] Sodium [Moles/Vol] 133 mmol/L Low 135 - 145 mmol/L [facility] Urea nitrogen [Mass/Vol] 25 mg/dL High 7 - 17 mg/dL [facility] CARECOORDon 04-05-2024 CARECOORD Normal [facility] CBC W Auto Differential pane l (Bld)on 04-05-2024 Basophils (Bld) [#/Vol] 0.1 10*3/uL 0.0 - 0.2 10*3/uL [facility] Basophils/100 WBC (Bld) 1.0 % 0.0 - 2.0 % [facility] Eosinophils (Bld) [#/Vol] 0.2 10*3/uL 0.0 - 0.5 10*3/uL [facility] Eosinophils/100 WBC (Bld) 2.9 % 0.0 - 6.0 % [facility] Erythrocyte distribution width (RBC) [Ratio] 14.4 % 11.5 - 15.0 % [facility] Hematocrit (Bld) [Volume fraction] 32.3 % Low 35.0 - 47.0 % [facility] Hemoglobin (Bld) [Mass/Vol] 10.6 g/dL Low 11.7 - 16.0 g/dL [facility] Immature granulocytes (Bld) [#/Vol] 0.0 10*3/uL NINF - 0.1 10*3/uL [facility] Immature granulocytes/100 WBC (Bld) 0.3 % 0.0 - 2.0 % [facility] Interpretation and review of laboratory results Abnormal [facility] Lymphocytes (Bld) [#/Vol] 1.7 10*3/uL 1.0 - 4.3 10*3/uL [facility] Lymphocytes/100 WBC (Bld) 27.5 % 15.0 - 45.0 % [facility] MCH (RBC) [Entitic mass] 30.7 pg 26.0 - 34.0 pg [facility] MCHC (RBC) [Mass/Vol] 32.8 % 30.5 - 36.0 % [facility] MCV (RBC) [Entitic vol] 93.6 fL 77.0 - 99.0 fL [facility] Monocytes (Bld) [#/Vol] 0.6 10*3/uL 0.0 - 0.9 10*3/uL [facility] Monocytes/100 WBC (Bld) 9.0 % 5.0 - 13.0 % [facility] Neutrophils (Bld) [#/Vol] 3.6 10*3/uL 1.8 - 7.5 10*3/uL [facility] Neutrophils/100 WBC (Bld) 59.3 % 38.0 - 82.0 % [facility] Nucleated RBC/100 WBC (Bld) [Ratio] 0.0 % [facility] Platelet mean volume (Bld) [Entitic vol] 10.1 fL 9.0 - 12.7 fL [facility] Platelets (Bld) [#/Vol] 204 10*3/uL 140 - 440 10*3/uL [facility] RBC (Bld) [#/Vol] 3.45 10*6/uL Low 3.80 - 5.2 0 10*6/uL [facility] WBC (Bld) [#/Vol] 6.1 10*3/uL 3.6 - 10.7 10*3/uL [facility] CBC WITH AUTO DIFFERENTIALon 04-05-2024 Basophils (Bld) [#/Vol] 0.1 10*3/uL Normal 0.0-0.2 [facility] Comment on above: Performed By: #### L [id number] ####Gas Shovel Operator: VELMA VALADEZ ([phone])[facility] ([facility])[address] [place] [address] Basophils/100 WBC (Bld) 1.0 % Normal 0.0-2.0 S [facility] Comment on above: Performed By: #### L [id number] ####Gas Shovel Operator: VELMA VALADEZ ([phone])[facility])[address] [place] [address] Eosinophils (Bld) [#/Vol] 0.2 10*3/uL Normal 0.0-0.5 [facility] Comment on above: Performed By: #### L [id number] ####Gas Shovel Operator: VELMA VALADEZ ([phone])[facility])[address] [place] [address] Eosinophils/100 WBC (Bld) 2.9 % Normal 0.0-6.0 [facility] Comment on above: Performed By: #### L [id number] ####Gas Shovel Operator: VELMA VALADEZ ([phone])[facility])[address] [place] [address] Erythrocyte distribution width (RBC) [Ratio] 14.4 % Normal 11.5-15.0 [facility] Comment on above: Performed By: #### L [id number] ####Gas Shovel Operator: VELMA VALADEZ ([phone])[facility])[address] [place] [address] Hematocrit (Bld) [Volume fraction] 32.3 % Low 35.0-47.0 [facility] Comment on above: Performed By: #### L [id number] ####Gas Shovel Operator: VELMA VALADEZ ([phone])[facility])[address] [place] [address] Hemoglobin (Bld) [Mass/Vol] 10.6 g/dL Low 11.7-16.0 [facility] Comment on above: Performed By: #### L [id number] ####Gas Shovel Operator: VELMA VALADEZ ([phone])[facility])[address] [place] [address] IMMATURE GRANS % 0.3 % Normal 0.0-2.0 [facility] Comment on above: Performed By: #### L [id number] ####Gas Shovel Operator: VELMA VALADEZ ([phone])[address] IMMATURE GRANS ABSOLUTE 0.0 10*3/uL Normal <0.1 [facility] Comment on above: Performed By: #### L [id number] ####Gas Shovel Operator: VELMA VALADEZ ([phone])[facility])[address] [place] [address] Lymphocytes (Bld) [#/Vol] 1.7 10*3/uL Normal 1.0-4.3 [facility] Comment on above: Performed By: #### L [id number] ####Gas Shovel Operator: VELMA VALADEZ ([phone])[address] Lymphocytes/100 WBC (Bld) 27.5 % Normal 15.0-45.0 [facility] Comment on above: Performed By: #### L [id number] ####Gas Shovel Operator: VELMA VALADEZ ([phone])[facility])[address] [place] [address] MCH (RBC) [Entitic mass] 30.7 pg Normal 26.0-34.0 [facility] Comment on above: Performed By: #### L [id number] ####Gas Shovel Operator: VELMA VALADEZ ([phone])[facility])[address] [place] [address] MCHC 32.8 % Normal 30.5-36.0 [facility] Comment on above: Performed By: #### L [id number] ####Gas Shovel Operator: VELMA VALADEZ ([phone])[facility])[address] [place] [address] MCV (RBC) [Entitic vol] 93.6 fL Normal 77.0-99.0 S [facility] Comment on above: Performed By: #### L [id number] ####Gas Shovel Operator: VELMA VALADEZ ([phone])[facility])[address] [place] [address] Monocytes (Bld) [#/Vol] 0.6 10*3/uL Normal 0.0-0.9 [facility] Comment on above: Performed By: #### L [id number] ####Gas Shovel Operator: VELMA VALADEZ ([phone])[facility] ([facility])[address] [place] [address] Monocytes/100 WBC (Bld) 9.0 % Normal 5.0-13.0 S [facility] Comment on above: Performed By: #### L [id number] ####Gas Shovel Operator: VELMA VALADEZ ([phone])[facility] ([facility])[address] [place] [address] NEUTROPHILS ABSOLUTE 3.6 10*3/uL Normal 1.8-7.5 [facility] Comment on above: Performed By: #### L [id number] ####Gas Shovel Operator: VELMA VALADEZ ([phone])[facility])[address] [place] [address] Neutrophils/100 WBC (Bld) 59.3 % Normal 38.0-82.0 [facility] Comment on above: Performed By: #### L [id number] ####Gas Shovel Operator: VELMA VALADEZ ([phone])[facility])[address] [place] [address] NRBC 0.0 /100 WBCs Normal 0.0-2.0 [facility] Comment on above: Performed By: #### L [id number] ####Gas Shovel Operator: VELMA VALADEZ ([phone])[facility])[address] [place] [address] Platelet mean volume (Bld) [Entitic vol] 10.1 fL Normal 9.0-12.7 [facility] Comment on above: Performed By: #### L [id number] ####Gas Shovel Operator: VELMA VALADEZ ([phone])[facility] ([facility])[address] [place] [address] Platelets (Bld) [#/Vol] 204 10*3/uL Normal 140-440 [facility] Comment on above: Performed By: #### L [id number] ####Gas Shovel Operator: VELMA VALADZE ([phone])[facility])[address] [place] [address] RBC (Bld) [#/Vol] 3.45 10*6/uL Low 3.80-5.20 [facility] Comment on above: Performed By: #### L [id number] ####Gas Shovel Operator: VELMA VALADEZ ([phone])[facility])[address] [place] [address] WBC (Bld) [#/Vol] 6.1 10*3/uL Normal 3.6-10.7 [facility] Comment on above: Performed By: #### L [id number] ####Gas Shovel Operator: VELMA VALADEZ ([phone])[facility] ([facility])[address] [place] [address] IDNon 04-05-2024 IDN The patient is Moderately Stable - Low risk of patient condition declining or worsening The patient's goals for the shift include met The clinical goals for the shift include met Normal [facility] - Coagulationon 0 04-05-2024 PT Coag (Bld) [Time] 11.4 s 9.0 - 1 2.0 s [facility] ID [place] PT Coag (Bld) [Time] 11.9 s 9.0 - 1 2.0 s [facility] No Panel Informationon 04-05 [facility] PROTHROMBIN TIMEon INR Coag (PPP) [Relative time] 1.0 {INR} Normal 0.9-1.1 [facility] Comment on above: Performed By: #### L [id number], [id number] ####Gas Shovel Operator: VELMA VALADEZ ([phone])[facility])[address] [place] [address] PT Coag (PPP) [Time] 11.4 s Normal 9.0-12.0 [facility] Comment on above: Performed By: #### L [id number], [id number] ####Gas Shovel Operator: VELMA VALADEZ ([phone])[facility])[address] [place] [address] INR Coag (PPP) [Relative time] 1.1 {INR} Normal 0.9-1.1 [facility] Comment on above: Result Comment: Timothy mmended [...] Myocardial Infarction Performed By: #### [place] [id number], [id number] ####Gas Shovel Operator: VELMA VALADEZ ([phone])[facility])[address] [place] [address] [place] PT Coag (PPP) [Time] 11.9 s Normal 9.0-12.0 [facility] Comment on above: Performed By: #### L [id number], [id number] ####Gas Shovel Operator: VELMA VALADEZ ([phone])[facility])[address] [place] [address] [place] PT Coag (Bld) [Time]on 04-05 INR Coag (PPP) [Relative time] 1.0 {INR} 0.9 - 1.1 [facility] Interpretation and review of laboratory results Normal [facility] INR Coag (PPP) [Relative time] 1.1 {INR} 0.9 - 1.1 [facility] Comment on above: Recommended Anticoag ulant Therapy: [...] Interpretation and review of laboratory results Normal [facility] Progress Noteon 04-05-2024 Progress Note Normal [facility] Progress Note Nutrition rescreen completed. Chart reviewed. Patient to be monitored and followed by the diet factory maintenance technician. FADI Harmon Normal [facility] Progress Note Normal [facility] Progress Note Normal [facility] aPTT Coag (Bld) [Time]on aPTT Coag (PPP) [Time] 76.6 s High 20.0 - 30.5 s [facility] Interpretation and review of laboratory results Abnormal [facility] NOTE: The therapeuti c time for Heparin anticoagulation, based on Xa activity inhibition, is an APTT of 46-80 seconds. [facility] aPTT Coag (PPP) [Time] 69.9 s High 20.0 - 30.5 s [facility] Interpretation and review of laboratory results Abnormal [facility] NOTE: The therapeuti c time for Heparin anticoagulation, based on Xa activity inhibition, is an APTT of 46-80 seconds. [facility] aPTT Coag (PPP) [Time] 88.8 s High 20.0 - 30.5 s [facility] Interpretation and review of laboratory results Abnormal [facility] NOTE: The therapeuti c time for Heparin anticoagulation, based on Xa activity inhibition, is an APTT of 46-80 seconds. [facility] aPTT Coag (Bld) [Time]Ordere d By: Juni Millard on 04-05-2024 aPTT Coag (PPP) [Time] 109.7 s High 20.0 - 30.5 s [facility] Interpretation and review of laboratory results Abnormal [facility] NOTE: The therapeuti c time for Heparin anticoagulation, based on Xa activity inhibition, is an APTT of 46-80 seconds. [facility] [id number] 04-04-2024 [id number] Normal [facility] [id number] Normal [facility] APTTon 04-04-2024 aPTT Coag (Bld) [Time] 81.8 s High 20.0-30.5 [facility] Comment on above: Result Comment: BUBBA Garcia COMMENTS:NOTE: The therapeutic time for Heparin anticoagulation, based on Xa activity inhibition, is an APTT of 46-80 seconds. Performed By: #### L [id number] ####Gas Shovel Operator: VELMA VALADEZ ([phone])[address] aPTT Coag (Bld) [Time] 81.4 s High 20.0-30.5 [facility] Comment on above: Result Comment: BUBBA Garcia COMMENTS:NOTE: The therapeutic time for Heparin anticoagulation, based on Xa activity inhibition, is an APTT of 46-80 seconds. Performed By: #### L [id number] ####Gas Shovel Operator: VELMA [phone])[address] aPTT Coag (Bld) [Time] 132.2 s Critically high 20.0-30. 5 [facility] Comment on above: Result Comment: BUBBA Garcia COMMENTS:NOTE: The therapeutic time for Heparin anticoagulation, based on Xa activity inhibition, is an APTT of 46-80 seconds. Performed By: #### L [id number] ####Gas Shovel Operator: VELMA [phone])[facility])[address] [place] [address] BASIC METABOLIC PANELon 03-18 Anion gap [Moles/Vol] 8 mmol/L Normal 3-13 [facility] Comment on above: Performed By: #### L AB15 ####Gas Shovel Operator: VELMA [phone])[address] [place] [address] [place] Calcium [Mass/Vol] 9.3 mg/dL Normal 8.4-10.4 [facility] Comment on above: Performed By: #### L AB15 ####Gas Shovel Operator: VELMA VALADEZ ([phone])[facility] [place] [address] Chloride [Moles/Vol] 110 mmol/L High 98-107 [facility] Comment on above: Performed By: #### L AB15 ####Gas Shovel Operator: VELMA VALADEZ ([phone])[facility] ([facility])[address] [place] [address] CO2 [Moles/Vol] 18 mmol/L Low 22-30 [facility] Comment on above: Performed By: #### L AB15 ####Gas Shovel Operator: VELMA VALADEZ ([phone])[facility] ([facility])[address] [place] [address] Creatinine [Mass/Vol] 1.45 mg/dL High 0.52-1.04 [facility] Comment on above: Performed By: #### L AB15 ####Gas Shovel Operator: VELMA VALADEZ ([phone])[facility] ([facility])[address] [place] [address] GLOMERULAR FILTRATION RATE ML/MIN/1.73 SQ M.PREDICTED 35.6 mL/min/1.73m*2 Low >60.0 [facility] Comment on above: Result Comment: Calc ulation based on the Chronic Kidney Disease Epidemiology Collaboration (CKD-EPI) equation refit without adjustment for race Performed By: #### L AB15 ####Gas Shovel Operator: VELMA VALADEZ ([phone])[facility] ([facility])[address] [place] [address] [place] Glucose [Mass/Vol] 100 mg/dL Normal 70-100 [facility] Comment on above: Performed By: #### L AB15 ####Gas Shovel Operator: VELMA VALADEZ ([phone])[facility] ([facility])[address] [place] [address] [place] Potassium [Moles/Vol] 4.5 mmol/L Normal 3.5-5.1 [facility] Comment on above: Performed By: #### L AB15 ####Gas Shovel Operator: VELMA VALADEZ ([phone])[facility] ([facility])[address] [place] [address] Sodium [Moles/Vol] 135 mmol/L Normal 135-145 [facility] Comment on above: Performed By: #### L AB15 ####Gas Shovel Operator: VELMA VALADEZ ([phone])[facility] ([facility])[address] [place] [address] Urea nitrogen [Mass/Vol] 30 mg/dL High 7-17 [facility] Comment on above: Performed By: #### L AB15 ####Gas Shovel Operator: VELMA VALADEZ ([phone])[facility] ([facility])[address] [place] [address] Basic metabolic 1998 panelOr dered By: Marielle Garcia on 04-04-2024 Anion gap [Moles/Vol] 8 mmol/L 3 - 13 mmol/L [facility] Calcium [Mass/Vol] 9.3 mg/dL 8.4 - 10. 4 mg/dL [facility] Chloride [Moles/Vol] 110 mmol/L High 98 - 10 7 mmol/L [facility] CO2 [Moles/Vol] 18 mmol/L Low 22 - 30 mmol/L [facility] Creatinine [Mass/Vol] 1.45 mg/dL High 0.52 - 1.04 mg/dL [facility] GFR/1.73 sq M.predicted (S/P/Bld) [Vol rate/Area] 35.6 mL/min Low - PINF [facility] Comment on above: Calculation based on the Chronic Kidney Disease Epidemiology Collaboration (CKD-EPI) equation refit without adjustment for race Glucose [Mass/Vol] 100 mg/dL 70 - 100 mg/dL [facility] Interpretation and review of laboratory results Abnormal [facility] Potassium [Moles/Vol] 4.5 mmol/L 3.5 - 5.1 mmol/L [facility] Sodium [Moles/Vol] 135 mmol/L 135 - 145 mmol/L [facility] Urea nitrogen [Mass/Vol] 30 mg/dL High 7 - 17 mg/dL [facility] CARECOORDon 04-04-2024 CARECOORD Normal [facility] CBC W Auto Differential pane l (Bld)on 04-04-2024 Basophils (Bld) [#/Vol] 0.1 10*3/uL 0.0 - 0.2 10*3/uL [facility] Basophils/100 WBC (Bld) 0.7 % 0.0 - 2.0 % [facility] Eosinophils (Bld) [#/Vol] 0.3 10*3/uL 0.0 - 0.5 10*3/uL [facility] Eosinophils/100 WBC (Bld) 3.2 % 0.0 - 6.0 % [facility] Erythrocyte distribution width (RBC) [Ratio] 14.2 % 11.5 - 15.0 % [facility] Hematocrit (Bld) [Volume fraction] 38.8 % 35.0 - 47.0 % [facility] Hemoglobin (Bld) [Mass/Vol] 12.5 g/dL 11.7 - 16.0 g/dL [facility] Immature granulocytes (Bld) [#/Vol] 0.1 10*3/uL High NINF - 0.1 10*3/uL [facility] Immature granulocytes/100 WBC (Bld) 0.6 % 0.0 - 2.0 % [facility] Interpretation and review of laboratory results Abnormal [facility] Lymphocytes (Bld) [#/Vol] 1.6 10*3/uL 1.0 - 4.3 10*3/uL [facility] Lymphocytes/100 WBC (Bld) 19.2 % 15.0 - 45.0 % [facility] MCH (RBC) [Entitic mass] 29.7 pg 26.0 - 34.0 pg [facility] MCHC (RBC) [Mass/Vol] 32.2 % 30.5 - 36.0 % [facility] MCV (RBC) [Entitic vol] 92.2 fL 77.0 - 99.0 fL [facility] Monocytes (Bld) [#/Vol] 0.8 10*3/uL 0.0 - 0.9 10*3/uL [facility] Monocytes/100 WBC (Bld) 9.9 % 5.0 - 13.0 % [facility] Neutrophils (Bld) [#/Vol] 5.3 10*3/uL 1.8 - 7.5 10*3/uL [facility] Neutrophils/100 WBC (Bld) 66.4 % 38.0 - 82.0 % [facility] Nucleated RBC/100 WBC (Bld) [Ratio] 0.0 % [facility] Platelet mean volume (Bld) [Entitic vol] 10.0 fL 9.0 - 12.7 fL [facility] Platelets (Bld) [#/Vol] 266 10*3/uL 140 - 440 10*3/uL [facility] RBC (Bld) [#/Vol] 4.21 10*6/uL 3.80 - 5.2 0 10*6/uL [facility] WBC (Bld) [#/Vol] 8.1 10*3/uL 3.6 - 10.7 10*3/uL [facility] CBC WITH AUTO DIFFERENTIALon 04-04-2024 Basophils (Bld) [#/Vol] 0.1 10*3/uL Normal 0.0-0.2 [facility] Comment on above: Performed By: #### L [id number] ####Gas Shovel Operator: VELMA VALADEZ ([phone])[facility])[address] [place] [address] Basophils/100 WBC (Bld) 0.7 % Normal 0.0-2.0 [facility] Comment on above: Performed By: #### L [id number] ####Gas Shovel Operator: VELMA VALADEZ ([phone])[facility])[address] [place] [address] [place] Eosinophils (Bld) [#/Vol] 0.3 10*3/uL Normal 0.0-0.5 [facility] Comment on above: Performed By: #### L [id number] ####Gas Shovel Operator: VELMA VALADEZ ([phone])[facility])[address] [place] [address] Eosinophils/100 WBC (Bld) 3.2 % Normal 0.0-6.0 [facility] Comment on above: Performed By: #### L [id number] ####Gas Shovel Operator: VELMA [phone])[facility] ([facility])[address] [place] [address] Erythrocyte distribution width (RBC) [Ratio] 14.2 % Normal 11.5-15.0 [facility] Comment on above: Performed By: #### L [id number] ####Gas Shovel Operator: VELMA VALADEZ ([phone])[facility])[address] [place] [address] Hematocrit (Bld) [Volume fraction] 38.8 % Normal 35.0-47.0 [facility] Comment on above: Performed By: #### L [id number] ####Gas Shovel Operator: VELMA VALADEZ ([phone])[facility])[address] [place] [address] Hemoglobin (Bld) [Mass/Vol] 12.5 g/dL Normal 11.7-16.0 [facility] Comment on above: Performed By: #### L [id number] ####Gas Shovel Operator: VELMA VALADEZ ([phone])[facility] ([facility])[address] [place] [address] IMMATURE GRANS % 0.6 % Normal 0.0-2.0 [facility] Comment on above: Performed By: #### L [id number] ####Gas Shovel Operator: VELMA VALADEZ ([phone])[facility])[address] [place] [address] IMMATURE GRANS ABSOLUTE 0.1 10*3/uL High <0.1 [facility] Comment on above: Performed By: #### L [id number] ####Gas Shovel Operator: VELMA VALADEZ ([phone])[facility])[address] [place] [address] Lymphocytes (Bld) [#/Vol] 1.6 10*3/uL Normal 1.0-4.3 [facility] Comment on above: Performed By: #### L [id number] ####Gas Shovel Operator: VELMA VALADEZ ([phone])[facility])[address] [place] [address] Lymphocytes/100 WBC (Bld) 19.2 % Normal 15.0-45.0 [facility] Comment on above: Performed By: #### L [id number] ####Gas Shovel Operator: VELMA VALADEZ ([phone])[facility])[address] [place] [address] MCH (RBC) [Entitic mass] 29.7 pg Normal 26.0-34.0 [facility] Comment on above: Performed By: #### L [id number] ####Gas Shovel Operator: VELMA VALADEZ ([phone])[facility])[address] [place] [address] MCHC 32.2 % Normal 30.5-36.0 [facility] Comment on above: Performed By: #### L [id number] ####Gas Shovel Operator: VELMA VALADEZ ([phone])[facility])[address] [place] [address] MCV (RBC) [Entitic vol] 92.2 fL Normal 77.0-99.0 S [facility] Comment on above: Performed By: #### L [id number] ####Gas Shovel Operator: VELMA VALADEZ ([phone])[facility])[address] [place] [address] Monocytes (Bld) [#/Vol] 0.8 10*3/uL Normal 0.0-0.9 [facility] Comment on above: Performed By: #### L [id number] ####Gas Shovel Operator: VELMA VALADEZ ([phone])[facility])[address] [place] [address] Monocytes/100 WBC (Bld) 9.9 % Normal 5.0-13.0 S [facility] Comment on above: Performed By: #### L [id number] ####Gas Shovel Operator: VELMA VALADEZ ([phone])[facility])[address] [place] [address] NEUTROPHILS ABSOLUTE 5.3 10*3/uL Normal 1.8-7.5 [facility] Comment on above: Performed By: #### L [id number] ####Gas Shovel Operator: VELMA VALADEZ ([phone])[facility] ([facility])[address] [place] [address] Neutrophils/100 WBC (Bld) 66.4 % Normal 38.0-82.0 [facility] Comment on above: Performed By: #### L [id number] ####Gas Shovel Operator: VELMA VALADEZ ([phone])[facility] ([facility])[address] [place] [address] NRBC 0.0 /100 WBCs Normal 0.0-2.0 [facility] Comment on above: Performed By: #### L [id number] ####Gas Shovel Operator: VELMA VALADEZ ([phone])[facility])[address] [place] [address] Platelet mean volume (Bld) [Entitic vol] 10.0 fL Normal 9.0-12.7 [facility] Comment on above: Performed By: #### L [id number] ####Gas Shovel Operator: VELMA VALADEZ ([phone])[facility] ([facility])[address] [place] [address] Platelets (Bld) [#/Vol] 266 10*3/uL Normal 140-440 [facility] Comment on above: Performed By: #### L [id number] ####Gas Shovel Operator: VELMA VALADEZ ([phone])[facility] ([facility])[address] [place] [address] RBC (Bld) [#/Vol] 4.21 10*6/uL Normal 3.80-5.20 [facility] Comment on above: Performed By: #### L [id number] ####Gas Shovel Operator: VELMA VALADEZ ([phone])[facility])[address] [place] [address] WBC (Bld) [#/Vol] 8.1 10*3/uL Normal 3.6-10.7 [facility] Comment on above: Performed By: #### L [id number] ####Gas Shovel Operator: VELMA VALADEZ ([phone])[facility] ([facility])[address] [place] [address] Consulton 04-04-2024 Consult Normal [facility] Consult Normal [facility] [place] ECG 12-LEADon 04-04-2024 ECG 12-LEAD IMPRESSION: Atrial fibrillation Borderline T abnormalities, inferior leads Compared to ECG 08/28/11 Sinus rhythm no longer noted Electronically Signed On 04-04-2024 03:48:37 EDT by Sourav Swenson Normal [facility] ED Nursing Noteon 04-04-2024 ED Nursing Note Report to Delia Bond RN 04/04/24 0342 [facility] ED Nursing Note Multiple attempts ma sheri to call report to [facility] with phone number provided by auxiliary powerplant operator, but when phone number dialed RN only gets busy tone. Will try again. Shannon Bond RN 04/04/24 0331 [facility] ED Nursing Note [facility] at bedside to transport pt to [facility]. Paperwork with EMS Shannon Bond RN 04/04/24 0314 [facility] IDNon 04-04-2024 IDN The patient is Moderately Stable - Low risk of patient condition declining or worsening The patient's goals for the shift include safety The clinical goals for the shift include therapeutic aptt Normal [facility] IDN [facility] No Panel Informationon 04-04 Left Pop Rfx 1.1 s [facility] Acute extensive DVT in the right lower [...] popliteal vein. History of DVT in 2021 [employer] Details A george scale, color Doppler imaging, spectral Doppler analysis and B-flow ultrasound was performed. During the study 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 and transverse views were obtained. Pulsed wave doppler was performed. The exam was performed with the patient in the supine position. Overall the study quality was adequate. Study was technically difficult due to: bowel gas. CV CPACS Left MICHELLE 0.62 [facility] Left dorsalis pedis BP 78 mmHg [facility] Left posterior tibial 86 mmHg [facility] Right MICHELLE 0.55 [facility] Right arm BP 139 mmHg [facility] Right dorsalis pedis BP 65 mmHg S [facility] Right posterior tibial 76 mmHg [facility] Right side findings: Resting MICHELLE is 0.55. [...] of RLE discovered just before PVR testing. [employer] Details A spectral Doppler analysis ultrasound was [...] On 04-04-2024 03:48:37 EDT by Sourav Swenson [facility] No Panel InformationOrdered By: Sourav Swenson on 04-04-2024 P Butler 0 degrees [facility] Work Phone: VA Interval 0 ms [employer] Phone: QRS Butler 40 degrees [facility] Work Phone: QRSD Interval 86 ms [employer] Work Phone: QT Interval 352 ms [place] Phone: QTC Interval 411 ms [facility] Work Phone: T Wave Butler -3 degrees [facility] Work Phone: [facility] Work Phone: Progress Noteon 04-04-2024 Progress Note Normal [facility] Progress Note Normal [facility] Progress Note Normal [facility] Vital signsOrdered By: Cathy Swenson on 04-04-2024 Heart rate 82 /min bpm [facility] Work Phone: aPTT Coag (Bld) [Time]on aPTT Coag (PPP) [Time] 81.8 s High 20.0 - 30.5 s [facility] Interpretation and review of laboratory results Abnormal [facility] NOTE: The therapeuti c time for Heparin anticoagulation, based on Xa activity inhibition, is an APTT of 46-80 seconds. [facility] aPTT Coag (PPP) [Time] 81.4 s High 20.0 - 30.5 s [facility] Interpretation and review of laboratory results Abnormal [facility] NOTE: The therapeuti c time for Heparin anticoagulation, based on Xa activity inhibition, is an APTT of 46-80 seconds. [facility] aPTT Coag (Bld) [Time]Ordere d By: Devika Eisenberg on 04-04-2024 aPTT Coag (PPP) [Time] 132.2 s Critically high 20 .0 - 30.5 s [facility] Interpretation and review of laboratory results Abnormal [facility] NOTE: The therapeuti c time for Heparin anticoagulation, based on Xa activity inhibition, is an APTT of 46-80 seconds. [facility] APTTon 04-03-2024 aPTT Coag (Bld) [Time] 25.6 s Normal 20.0-30.5 [facility] Comment on above: Result Comment: BUBBA Garcia COMMENTS:NOTE: The therapeutic time for Heparin anticoagulation, based on Xa activity inhibition, is an APTT of 46-80 seconds. Performed By: #### L [id number] ####Gas Shovel Operator: MARYLOU MAY ([id number])[facility] ([facility])[address] [place] [address] CBC (HEMOGRAM)on 04-03-2024 Erythrocyte distribution width (RBC) [Ratio] 14.4 % Normal 11.5-15.0 [facility] Comment on above: Performed By: #### L [id number] ####Gas Shovel Operator: MARYLOU MAY ([phone])[facility] ([facility] [place] [address] Hematocrit (Bld) [Volume fraction] 38.6 % Normal 35.0-47.0 [facility] Comment on above: Performed By: #### L AB294 ####Gas Shovel Operator: MARYLOU MAY ([id number])[facility] ([facility])[address] [place] [address] Hemoglobin (Bld) [Mass/Vol] 12.7 g/dL Normal 11.7-16.0 [facility] Comment on above: Performed By: #### L AB294 ####Gas Shovel Operator: MARYLOU MAY ([id number])[place] ([facility])[address] MCH (RBC) [Entitic mass] 30.4 pg Normal 26.0-34.0 [facility] Comment on above: Performed By: #### L AB294 ####Gas Shovel Operator: MARYLOU MAY ([id number])[facility]ITAL[facility]EL[facility]QUEZKANU (SB[facility])[address] MCHC 32.9 % Normal 30.5-36.0 [facility] Comment on above: Performed By: #### L AB294 ####Gas Shovel Operator: MARYLOU MAY ([id number])[facility] HOSPITALSimran VELASQUEZCARLSBAD MEDICAL CENTERBossman (SBHLAB)[address] MCV (RBC) [Entitic vol] 92.3 fL Normal 77.0-99.0 S [facility] Comment on above: Performed By: #### L AB294 ####Gas Shovel Operator: MARYLOU MAY ([id number])[facility]OSPITAL[facility]ran [place]ZK[facility] (SBHL[facility])[address] Platelet mean volume (Bld) [Entitic vol] 10.0 fL Normal 9.0-12.7 [facility] Comment on above: Performed By: #### L AB294 ####Gas Shovel Operator: MARYLOU MAY ([phone])[facility]ITAL[facility] [place]ZK[place] (SB[facility])[address] Platelets (Bld) [#/Vol] 283 10*3/uL Normal 140-440 [facility] Comment on above: Performed By: #### L AB294 ####Gas Shovel Operator: MARYLOU MAY ([id number])[facility]ITAL[facility]ran [place]Z[facility] ([facility])[address] RBC (Bld) [#/Vol] 4.18 10*6/uL Normal 3.80-5.20 [facility] Comment on above: Performed By: #### L AB294 ####Gas Shovel Operator: MARYLOU MAY ([id number])[facility] ([facility])[address] [place] [address] WBC (Bld) [#/Vol] 9.3 10*3/uL Normal 3.6-10.7 [facility] Comment on above: Performed By: #### L AB294 ####Gas Shovel Operator: MARYLOU SEGURAPerriJHONATHAN ([id number])[facility] ([facility])[address] [place] [address] CBC panel Auto (Bld)on 04-03 Erythrocyte distribution width (RBC) [Ratio] 14.4 % 11.5 - 15.0 % [facility] Hematocrit (Bld) [Volume fraction] 38.6 % 35.0 - 47.0 % [facility] Hemoglobin (Bld) [Mass/Vol] 12.7 g/dL 11.7 - 16.0 g/dL [facility] Interpretation and review of laboratory results Normal [facility] MCH (RBC) [Entitic mass] 30.4 pg 26.0 - 34.0 pg [facility] MCHC (RBC) [Mass/Vol] 32.9 % 30.5 - 36.0 % [facility] MCV (RBC) [Entitic vol] 92.3 fL 77.0 - 99.0 fL [facility] Platelet mean volume (Bld) [Entitic vol] 10.0 fL 9.0 - 12.7 fL [facility] Platelets (Bld) [#/Vol] 283 10*3/uL 140 - 440 10*3/uL [facility] RBC (Bld) [#/Vol] 4.18 10*6/uL 3.80 - 5.2 0 10*6/uL [facility] WBC (Bld) [#/Vol] 9.3 10*3/uL 3.6 - 10.7 10*3/uL [facility] COMPREHENSIVE METABOLIC PANE Gilberto 04-03-2024 Albumin [Mass/Vol] 4.3 g/dL Normal 3.5-5.0 [facility] Comment on above: Performed By: #### L AB103, [id number], LAB17 ####Gas Shovel Operator: MARYLOU MAY ([id number])[facility]ITALA [place] (SB[facility]AB)[address] ALP [Catalytic activity/Vol] 91 U/L Normal 38-126 [facility] Comment on above: Performed By: #### L AB103, [id number], LAB17 ####Gas Shovel Operator: MARYLOU MAY ([id number])[facility] [place] ([facility])[address] ALT [Catalytic activity/Vol] 10 U/L Normal 0-34 [facility] Comment on above: Performed By: #### L AB103, [id number], LAB17 ####Gas Shovel Operator: MARYLOU MAY ([id number])[facility]ITAL[facility] [place] (SB[facility])[address] Anion gap [Moles/Vol] 9 mmol/L Normal 3-13 [facility] Comment on above: Performed By: #### L AB103, [id number], LAB17 ####Gas Shovel Operator: MARYLOU MAY ([id number])[facility]ITALA [facility] (SB[facility])[address] AST [Catalytic activity/Vol] 19 U/L Normal 15-46 [facility] Comment on above: Performed By: #### L AB103, [id number], LAB17 ####Gas Shovel Operator: MARYLOU MAY ([id number])[facility] [place] ([facility])[address] Bilirubin [Mass/Vol] 1.1 mg/dL Normal 0.2-1.3 [facility] Comment on above: Performed By: #### L AB103, [id number], LAB17 ####Gas Shovel Operator: MARYLOU MAY ([id number])[facility] [place] ([facility])[address] Calcium [Mass/Vol] 9.3 mg/dL Normal 8.4-10.4 [facility] Comment on above: Performed By: #### L AB103, [id number], LAB17 ####Gas Shovel Operator: MARYLOU MAY ([id number])[facility]OSPITALSimran VELASQUEZCORALN (SBHLAB)[address] Chloride [Moles/Vol] 107 mmol/L Normal 98-107 [facility] Comment on above: Performed By: #### L AB103, AGP126, LAB17 ####Gas Shovel Operator: MARYLOU MAY ([id number])[facility]OSPITALSimran VELASQUEZCARLSBAD MEDICAL CENTERN (SBHLAB)[address] CO2 [Moles/Vol] 20 mmol/L Low 22-30 [facility] Comment on above: Performed By: #### Weston DAWSON, [id number], LAB17 ####Gas Shovel Operator: MARYLOU MAY ([id number])[facility] ([facility])[address] Creatinine [Mass/Vol] 1.54 mg/dL High 0.52-1.04 [facility] Comment on above: Performed By: #### Weston DAWSON, [id number], LAB17 ####Gas Shovel Operator: MARYLOU MAY ([id number])[facility]OSPITALSimran VELASQUEZARIZONA STATE HOS[facility] ([facility])[address] GLOMERULAR FILTRATION RATE ML/MIN/1.73 SQ M.PREDICTED 33.2 mL/min/1.73m*2 Low >60.0 [facility] Comment on above: Result Comment: Calc ulation based on the Chronic Kidney Disease Epidemiology Collaboration (CKD-EPI) equation refit without adjustment for race Performed By: #### L AB103, HGD239, LAB17 ####Gas Shovel Operator: MARYLOU MAY ([id number])[facility]OSPITALSimran VELASQUEZCARLSBAD MEDICAL CENTERN ([facility])[address] [place] [address] [place] Glucose [Mass/Vol] 115 mg/dL High 70-100 [facility] Comment on above: Performed By: #### L AB103, [id number], LAB17 ####Gas Shovel Operator: MARYLOU MAY ([id number])[facility] HOSPITALSimran [place] (SBHLAB)[address] Potassium [Moles/Vol] 5.7 mmol/L High 3.5-5.1 [facility] Comment on above: Performed By: #### L AB103, [id number], LAB17 ####Gas Shovel Operator: MARYLOU MAY ([id number])[facility] [place] ([facility])[address] Protein [Mass/Vol] 7.7 g/dL Normal 6.3-8.2 [facility] Comment on above: Performed By: #### L AB103, XAD065, LAB17 ####Gas Shovel Operator: MARYLOU MAY ([id number])[facility]ITALSim[facility] [place] ([facility])[address] Sodium [Moles/Vol] 135 mmol/L Normal 135-145 [facility] Comment on above: Performed By: #### L AB103, [id number], LAB17 ####Gas Shovel Operator: MARYLOU MAY ([id number])[facility] ([facility])[address] Urea nitrogen [Mass/Vol] 29 mg/dL High 7-17 [facility] Comment on above: Performed By: #### L AB103, ISP605, LAB17 ####Gas Shovel Operator: MARYLOU MAY ([id number])[facility] ([facility])[address] HEAD WO IV CONTRASTon CT HEAD WO IV CONTRAST Normal [facility] CT Head WO contraston 2023 1. No acute finding. Chronic left cerebellar infarct.. Report Dictated on Electronically Signed By: Toño Tang MD Electronically Signed Date/Time: 04/03/2024 9:21 PM T [facility] Patient Name: MEL CARVER RD [facility] 1940 [id number] Exam Date/Time: 04/03/2024 21:06 Procedure: CT HEAD [...] midline shift. No hydrocephalus. Left globe prosthesis. [facility] Toño Tang MD - 04/03/2024 Patient Name: MEL POP : 1940 [facility] [id number] Exam Date/Time: 04/03/2024 21:06 Procedure: CT HEAD [...] Electronically Signed Date/Time: 04/03/2024 9:21 PM EDT [facility] Radiology Study observation (narrative) [facility] CT Head WO contrastOrdered B y: Toño Tang on 04-03-2024 [facility] ID [place] Work Phone: CTA AORTA BL ILIOFEMORAL W W Oon 04-03-2024 CTA AORTA BL ILIOFEMORAL W WO Normal [facility] CTA Thoracic and Abdominal A zachary and Bilateral Runoff Vessels WO and W contrast Cheryl 04-03-2024 1. Severe lower extremity atherosclerotic disease. 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 2. 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 3. Severe diverticulosis. Report Dictated on Electronically Signed By: Toño Tang MD Electronically Signed Date/Time: 04/03/2024 9:36 PM EDT [facility] Patient Name: MEL CARVER RD : 1940 [facility]#: [id number] Exam Date/Time: 04/03/2024 21:14 Procedure: CTA AORTA [...] into the mid to distal lower leg. [facility] Toño Tang MD - 04/03/2024 [...] Electronically Signed Date/Time: 04/03/2024 9:36 PM EDT [facility] Radiology Study observation (narrative) [facility] Comprehensive metabolic 1998 panelon 04-03-2024 Albumin [Mass/Vol] 4.3 g/dL 3.5 - 5.0 g/dL [facility] ALP [Catalytic activity/Vol] 91 U/L 38 - 126 U/L [facility] ALT [Catalytic activity/Vol] 10 U/L 0 - 34 U/L [facility] Anion gap [Moles/Vol] 9 mmol/L 3 - 13 mmol/L [facility] AST [Catalytic activity/Vol] 19 U/L 15 - 46 U/L [facility] Bilirubin [Mass/Vol] 1.1 mg/dL 0.2 - 1 .3 mg/dL [facility] Calcium [Mass/Vol] 9.3 mg/dL 8.4 - 10. 4 mg/dL [facility] Chloride [Moles/Vol] 107 mmol/L 98 - 10 7 mmol/L [facility] CO2 [Moles/Vol] 20 mmol/L Low 22 - 30 mmol/L [facility] Creatinine [Mass/Vol] 1.54 mg/dL High 0.52 - 1.04 mg/dL [facility] GFR/1.73 sq M.predicted (S/P/Bld) [Vol rate/Area] 33.2 mL/min Low - PINF [facility] Comment on above: Calculation based on the Chronic Kidney Disease Epidemiology Collaboration (CKD-EPI) equation refit without adjustment for race Glucose [Mass/Vol] 115 mg/dL High 70 - 100 mg/dL [facility] Interpretation and review of laboratory results Abnormal [facility] Potassium [Moles/Vol] 5.7 mmol/L High 3.5 - 5.1 mmol/L [facility] Protein [Mass/Vol] 7.7 g/dL 6.3 - 8.2 g/dL [facility] Sodium [Moles/Vol] 135 mmol/L 135 - 145 mmol/L [facility] Urea nitrogen [Mass/Vol] 29 mg/dL High 7 - 17 mg/dL [facility] ED Nursing Noteon 04-03-2024 ED Nursing Note Normal [facility] ED Provider Noteon ED Provider Note Normal [facility] Laboratory - Chemistry and C hemistry - challengeon 04-03-2024 Troponin I.cardiac [Mass/Vol] 0.014 ng/mL NINF - 0.034 ng/mL [facility] Magnesium [Mass/Vol] 2.3 mg/dL 1.6 - 2 .3 mg/dL [facility] Laboratory - Coagulationon 0 04-03-2024 aPTT Coag (PPP) [Time] 26.7 s 20.0 - 30.5 s [facility] INR Coag (PPP) [Relative time] 1.0 {INR} 0.9 - 1.1 [facility] Comment on above: Recommended Anticoag ulant Therapy: [...] 11.7 s 9.0 - 1 2.0 s [facility] MAGNESIUMon 04-03-2024 Magnesium [Mass/Vol] 2.3 mg/dL Normal 1.6-2.3 [facility] Comment on above: Performed By: #### L AB103, [id number], LAB17 ####Gas Shovel Operator: MARYLOU MAY ([id number])[facility] ([facility])[address] [place] [address] Magnesium [Mass/Vol]on 04-03 Interpretation and review of laboratory results Normal [facility] No Panel Informationon 04-03 [facility] Interpretation and review of laboratory results Normal [facility] PROTIME AND APTTon aPTT Coag (Bld) [Time] 26.7 s Normal 20.0-30.5 [facility] Comment on above: Performed By: #### L [id number] ####Gas Shovel Operator: MARYLOU MAY ([id number])[facility]ITAL[facility] ([facility])[address] [place] [address] INR Coag (PPP) [Relative time] 1.0 {INR} Normal 0.9-1.1 [facility] Comment on above: Result Comment: Timothy mmended [...] prevent Myocardial Infarction Performed By: #### L [id number] ####Gas Shovel Operator: MARYLOU MAY ([id number])[facility] (HLAB)[address] PT Coag (PPP) [Time] 11.7 s Normal 9.0-12.0 [facility] Comment on above: Performed By: #### L [id number] ####Gas Shovel Operator: MARYLOU MAY ([id number])[facility] ([facility])[address] TROPONIN Ion 04-03-2024 Troponin I.cardiac [Mass/Vol] 0.014 ng/mL Normal <0.034 [facility] Comment on above: Result Comment: BUBBA Garcia COMMENTS:Patients with high levels of Biotin oral intake (ie >5 mg/day) may have falsely decreased Troponin levels. Performed By: #### L AB103, [id number], LAB17 ####Gas Shovel Operator: MARYLOU MAY ([id number])[facility] ([facility])[address] [place] [address] Troponin I.cardiac [Mass/Vol ]on 04-03-2024 Interpretation and review of laboratory results Normal [facility] Patients with high levels of Biotin oral intake (ie >5 mg/day) may have falsely decreased Troponin levels. [facility] aPTT Coag (Bld) [Time]on aPTT Coag (PPP) [Time] 25.6 s 20.0 - 30.5 s [facility] Interpretation and review of laboratory results Normal [facility] NOTE: The therapeuti c time for Heparin anticoagulation, based on Xa activity inhibition, is an APTT of 46-80 seconds. [facility] MR Lower leg - left WO and [...] Electronically Signed Date/Time: 06/16/2023 8:10 AM EST [facility] Patient Name: MEL CARVER RD : [...] and lateral ankle resulting from ORIF hardware. [facility] Dimas Woodward MD - 06/16/2023 Patient Name: [...] MD Electronically Signed Date/Time: 06/16/2023 8:10 AM [facility] MR Lower leg - left WO and W contrast IVOrdered By: Dimas Woodward on 06-16-2023 [facility] Work Phone: MR Lower leg - left WO and W contrast Cheryl 06-15-2023 Radiology Study observation (narrative) [facility] Panel Informationon 05-24 No evidence of venous thrombus in the left lower extremity. Report Dictated on Electronically Signed By: Yasmany Whyte MD Electronically Signed Date/Time: 05/24/2023 11:42 AM [facility] Patient Name: MEL CARVER RD : [...] augmentation and normal response to Valsalva maneuver. [facility] Yasmany Whyte MD - 05/24/2023 [...] Electronically Signed Date/Time: 05/24/2023 11:[address] [facility] [address] Neck W contrast Cheryl 02-16 Patient [...] MD Electronically Signed Date/Time: 03/11/2023 10:28 AM [facility] Efrain Yi MD - 03/11/2023 Patient Name: MEL POP : 1940 [facility]#: [id number] Exam Date/Time: 03/08/2023 11:33 Procedure: CT SOFT [...] MD Electronically Signed Date/Time: 03/11/2023 10:28 AM [facility] CT Neck W contrast IVOrdered By: Efrain Yi on 03-11-2023 [facility] Work Phone: CT Neck W contrast Cheryl 02-16 Radiology Study observation (narrative) [facility]th US Head and neck soft tissue on 02-24-2023 Indeterminate soft tissue nodules in the patients area of palpable concern in the left neck, which may represent enlarged left submandibular gland with obstructing sialolith and adjacent enlarged lymph node. Recommend further evaluation with contrast-enhanced neck CT. Report Dictated on Electronically Signed By: Ryan Mccollum MD Electronically Signed Date/Time: 02/24/2023 8:23 AM EDT [facility] Patient Name: MEL CARVER RD : [...] measuring 1.8 x 1.6 x 1.4 cm. [facility] Ryan Mccollum MD - 02/24/2023 Patient [...] Electronically Signed Date/Time: 02/24/2023 8:23 AM EDT [facility] Head and neck soft tissue Ordered By: Ryan Mccollum on 02-24-2023 [facility] Work Phone: [phone] [facility] Head and neck soft tissue on 02-22-2023 Radiology Study observation (narrative) [facility] CONSULT PROGon 06-29-2022 CONSULT PROG HNO ID: [id number] Author: Nemo Petty APRN.HAZARDOUS MATERIALS TANKER DRIVER Service: Wound/Ostomy Author Type: Nurse Practitioner Type: Consult Progress Note Filed: 06/29/2022 12:51 PM Note Text: WOUND CARE SERVICE PROGRESS GROOMING ASSISTANT NOTE SERVICE DATE: 06/29/2022 SERVICE TIME: 10:20 TIME SPENT (minutes): 30 REASON FOR CONSULT: follow up wound care visit to reassess skin/wounds CHIEF COMPLAINT: right finger wound Subjective HISTORY OF PRESENT ILLNESS: Ms. 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, as a follow up wound care visit [...] Wound Image Site Assessment Red;Intact Allie-Wound Assessment [place] Drainage Amount None Treatments Protective Barrier Ointment Dressing Foam- Adhesive Active Orders Date Order Priority Status Authorizing Provider 06/28/22 1423 zinc oxide 20 % ointment Active Iwona Chu, 06/21/22 1248 DRESSING CARE (SPECIFY) ([place]) Routine Active Fidel Carmen APRN.HAZARDOUS MATERIALS TANKER DRIVER - Specify:: Apply allevyn foam to coccyx, peel down every shift to assess skin and to apply zinc oxide, change every 3 days or if soiled. 06/21/22 1248 zinc oxide 20 % Active Fidel Carmen APRN.HAZARDOUS MATERIALS TANKER DRIVER Wound 06/16/22 Incision Knee Left;Posterior (Active) Assessments 06/29/2022 10:27 AM Wound Image Site Assessment Dry;Intact Allie-Wound Assessment Intact Closure Sutures Drainage Amount None Treatments Open to Air No Linked orders to display Wound 06/21/22 0948 Atypical Wound Finger (Comment which one) Right (Active) Assessments 06/29/2022 10:23 AM Wound Image Site Assessment Red;[place] Allie-Wound Assessment Intact Wound Length (cm) 2 cm Wound Width (cm) 2.5 cm Wound Surface Area (cm2) 5 cm2 Wound Depth (cm) 0.1 cm Wound Volume (cm3) 0.5 (more content not included)... Normal [facility] NUTRITIONon 06-29-2022 NUTRITION HNO ID: [id number] Author: Iwona Pelayo RD Service: Nutrition Therapy Author Type: Registered Dietitian Type: Nutrition Filed: 06/29/2022 1:38 PM Note Text: NUTRITION THERAPY PROGRESS NOTE SERVICE DATE: 06/29/2022 SERVICE TIME: 13:30 Nutrition Assessment: Recommended Malnutrition Diagnosis: No Malnutrition Identified (06/23/22 1109 : Parul Mcallister RD) Estimated kilocalorie needs: 5089-1692 Calorie Calculation Method: 25-30 kcals/kg Estimated protein [...] June 29, 2022 TIME: 10:17 AM Normal [facility] PT EDon 06-29-2022 PT ED HNO ID: [id number] Author: Joana Tolbert RPh Service: Pharmacy Author [...] information Outcomes not met: N/A Joana Tolbert [facility] Normal [facility] CNDSon 06-28-2022 CNDS HNO ID: [id number] Author: Iwona Chu DO Service: Hospital Medicine [...] MD Attending: Collette Rahman DO Primary Service: [facility] MY CONDITION AT DISCHARGE: Stable REASON I [...] micropuncture needle and serially upsized to a 5-Danish sheath. A venogram was then performed, which [...] time, the sheath was upsized to an 8-Danish sheath. An intravascular ultrasound was performed. This [...] educational literat (more content not included)... Normal [facility] NURSING PROGon 06-28-2022 NURSING PROG HNO ID: [id number] Author: John Castro RN Service: Nursing Author Type: Registered Nurse Type: Nursing Progress Note Filed: 06/28/2022 2:28 PM Note Text: Other: Ambulatory pulse ox per Dr. Chu SpO2 on Room air at rest: 91% SpO2 while ambulating on Room air: 83% SpO2 while ambulating on 2 liters of oxygen: 91% Normal [facility] Bacteria Spec Resp Culton Bacteria identified Respiratory culture Nom (Unsp spec) CULTURE, RESPIRATORY: Few Normal respiratory radha present ORGANISM ID: 1 Few Lactose fermenting gram negative rods Insignificant colony count. No further workup. GRAM STAIN: Rare Gram positive cocci Few Polymorphonuclear leukocytes Few Epithelial cells Abnormal [facility] Comment on above: Performed By: #### 3 2355-0 #### [facility] CLIA [id number] [address] CONSULT PROGon 06-25-2022 CONSULT PROG HNO ID: [id number] Author: Cirilo Yip RPh Service: Pharmacy Author Type: Pharmacist Type: Consult Progress Note Filed: 06/25/2022 1:49 PM Note Text: PHARMACY ORAL ANTICOAGULATION PATIENT EDUCATION NOTE Oral anticoagulant: apixaban Indication: DVT/PE Patient New to medication: Yes LEARNERS Persons Present: Patient Primary Learner: Patient Urology Physician Present: No Patient educated on the followin. [...] June 25, 2022 TIME: 1:48 PM Normal [facility] Bacteria Spec Resp Culton Bacteria identified Respiratory culture Nom (Unsp spec) CULTURE, RESPIRATORY: Moderate Normal respiratory radha present GRAM STAIN: Moderate Mixed oral radha Few Polymorphonuclear leukocytes Few Epithelial cells Abnormal [facility] Comment on above: Performed By: #### 3 2355-0 ####[facility]ATORYCLIA [id number] [place] [address] [place] Basic metabolic 2000 panelon 06-24-2022 Anion gap [Moles/Vol] 10 mmol/L Normal 9-18 [facility] Comment on above: Order Comment: Speci isabella Type: BLOOD SPECIMENOrdering Facility: [facility] Address: [address] [place] [id number] Performed By: #### 2 4321-2, 13651-0 ####[facility]ATORYCLIA [id number] [address] [place] Calcium [Mass/Vol] 9.0 mg/dL Normal 8.5-10.2 [facility] Comment on above: Order Comment: Samiri men Type: BLOOD SPECIMENOrdering Facility: [facility] Address: [address] [address] Performed By: #### 2 4321-2, 22895-7 ####[facility]ORATORYCLIA [id number] [address] STATES [facility] Chloride [Moles/Vol] 103 mmol/L Normal 97-105 [facility] Comment on above: Order Comment: Speci men Type: BLOOD SPECIMENOrdering Facility: [facility] Address: [address] [place] [address] Performed By: #### 2 4321-2, 26936-6 ####[facility]ATORYCLIA [id number] [address] [facility] CO2 [Moles/Vol] 23 mmol/L Normal 22-30 [facility] Comment on above: Order Comment: Speci men Type: BLOOD SPECIMENOrdering Facility: [facility] Address: [address] [place] [address] Performed By: #### 2 4321-2, 91799-7 ####[facility]ATORYCLIA [id number] [address] [facility] Creatinine [Mass/Vol] 0.73 mg/dL Normal 0.58-0.96 [facility] Comment on above: Order Comment: Speci men Type: BLOOD SPECIMENOrdering Facility: [facility] Address: [address] [place] [address] Performed By: #### 2 4321-2, 07728-5 ####[facility]ATORYCLIA [id number] [address] ESTIMATED GLOMERULAR FILTRATION RATE 82 mL/min/1.73m??? Normal >=60 [facility] Comment on above: Order Comment: Speci men Type: BLOOD SPECIMENOrdering Facility: [facility] Address: [address] [place] [address] Result Comment: Isa mated Glomerular Filtration Rate [...] actual GFR. Performed By: #### 2 4321-2, 04526-2 ####[facility]ATORYCLIA [id number] [place] [address] [place] Glucose [Mass/Vol] 165 mg/dL High 74-99 [facility] Comment on above: Order Comment: Rhina mason Type: BLOOD SPECIMENOrdering Facility: [facility] Address: [address] [place] [address] Result Comment: The [place] Diabetes Association (ADA) provides guidance for cutoff [...] Standards of Medical Care in Diabetes 2016, [place] Diabetes Association. Diabetes Care. 2016.39(Suppl 1). Performed By: #### 2 4321-2, 01721-5 ####[facility]ATORYCLIA [id number] [place] [address] [place] Potassium [Moles/Vol] 5.0 mmol/L Normal 3.7-5.1 [facility] Comment on above: Order Comment: Rhina mason Type: BLOOD SPECIMENOrdering Facility: [facility] Address: [address] [phone] Performed By: #### 2 4321-2, 59684-4 ####[facility]ATORYCLIA [id number] [place] [address] [place] Sodium [Moles/Vol] 136 mmol/L Normal 136-144 [facility] Comment on above: Order Comment: Rhina mason Type: BLOOD SPECIMENOrdering Facility: [facility] Address: [address] [address] Performed By: #### 2 4321-2, 25448-5 ####[facility]ATORYCLIA [id number] [address] Urea nitrogen [Mass/Vol] 14 mg/dL Normal 7-21 [facility] Comment on above: Order Comment: Speci men Type: BLOOD SPECIMENOrdering Facility: [facility] Address: [address] [address] Performed By: #### 2 4321-2, 22763-3 ####[facility]ORATORYCLIA [id number] [address] CBC panel Auto (Bld)on 06-24 Erythrocyte distribution width (RBC) [Ratio] 17.0 % High 11.5-15.0 [facility] Comment on above: Order Comment: Speci men Type: BLOOD SPECIMENOrdering Facility: [facility] Address: [address] [place] [address] Performed By: #### 5 8410-2 ####[facility]ATORYCLIA [id number] [address] Hematocrit (Bld) [Volume fraction] 27.2 % Low 36.0-46.0 [facility] Comment on above: Order Comment: Speci men Type: BLOOD SPECIMENOrdering Facility: [facility] Address: [address] [place] [address] Performed By: #### 5 8410-2 ####[facility]ATORYCLIA [id number] [address] STATES [facility] Hemoglobin (Bld) [Mass/Vol] 8.9 g/dL Low 11.5-15.5 [facility] Comment on above: Order Comment: Speci men Type: BLOOD SPECIMENOrdering Facility: [facility] Address: [address] [place] [address] Performed By: #### 5 8410-2 ####[facility]ATORYCLIA [id number] [address] MCH (RBC) [Entitic mass] 30.9 pg Normal 26.0-34.0 [facility] Comment on above: Order Comment: Speci men Type: BLOOD SPECIMENOrdering Facility: [facility] Address: [address] [place] [address] Performed By: #### 5 8410-2 ####[facility]ATORYCLIA [id number] [address] MCHC (RBC) [Mass/Vol] 32.7 g/dL Normal 30.5-36.0 [facility] Comment on above: Order Comment: Speci men Type: BLOOD SPECIMENOrdering Facility: [facility] Address: [address] [place] [address] Performed By: #### 5 8410-2 ####[facility]ATORYCLIA [id number] [address] MCV (RBC) [Entitic vol] 94.4 fL Normal 80.0-100.0 [facility] Comment on above: Order Comment: Speci men Type: BLOOD SPECIMENOrdering Facility: [facility] Address: [address] [place] [address] Performed By: #### 5 8410-2 ####[facility]ATORYCLIA [id number] [address] Nucleated RBC (Bld) [#/Vol] 0.03 10*3/uL High <0.01 [facility] Comment on above: Order Comment: Speci men Type: BLOOD SPECIMENOrdering Facility: [facility] Address: [address] [place] [address] Performed By: #### 5 8410-2 ####[facility]ATORYCLIA [id number] [address] Platelet mean volume (Bld) [Entitic vol] 9.8 fL Normal 9.0-12.7 [facility] Comment on above: Order Comment: Speci men Type: BLOOD SPECIMENOrdering Facility: [facility] Address: [address] [address] Performed By: #### 5 8410-2 ####[facility]ATORYCLIA [id number] [address] Platelets (Bld) [#/Vol] 241 10*3/uL Normal 150-400 [facility] Comment on above: Order Comment: Speci men Type: BLOOD SPECIMENOrdering Facility: [facility] Address: [address] [address] Performed By: #### 5 8410-2 ####[facility]ATORYCLIA [id number] [address] [place] RBC (Bld) [#/Vol] 2.88 10*6/uL Low 3.90-5.20 [facility] Comment on above: Order Comment: Speci men Type: BLOOD SPECIMENOrdering Facility: [facility] Address: [address] [place] [address] Performed By: #### 5 8410-2 ####[facility]ATORYCLIA [id number] [address] [facility] WBC (Bld) [#/Vol] 6.37 10*3/uL Normal 3.70-11.00 [facility] Comment on above: Order Comment: Speci men Type: BLOOD SPECIMENOrdering Facility: [facility] Address: [address] [place] [address] Performed By: #### 5 8410-2 ####[facility]ATORYCLIA [id number] [address] NT-proBNP [facility] 06-24 Natriuretic peptide.B prohormone N-Terminal [Mass/Vol] 2971 pg/mL High <450 [facility] Comment on above: Order Comment: Speci men Type: BLOOD SPECIMENOrdering Facility: [facility] Address: [address] [place] [address] Performed By: #### 2 4321-2, 65103-2 ####[facility]ATORYCLIA [id number] [address] aPTT PPPon 06-24-2022 aPTT Coag (PPP) [Time] 64.2 s High 23.0-32.4 [facility] Comment on above: Order Comment: Speci men Type: BLOOD SPECIMEN [facility] Address: [address] [place] [address] Performed By: #### T SCR #### [facility] CLIA [id number] [address] aPTT Coag (PPP) [Time] 45.8 s High 23.0-32.4 [facility] Comment on above: Order Comment: Speci men Type: BLOOD SPECIMENOrdering Facility: [facility] Address: [address] [place] [address] Performed By: #### 3 2355-0 #### [facility] CLIA [id number] [address] [place] [address] aPTT Coag (PPP) [Time] 116.8 s High 28.5-34.0 [facility] Comment on above: Order Comment: Speci men Type: BLOOD SPECIMENOrdering Facility: [facility] Address: [address] [place] [address] Performed By: #### 1 4979-9 ####[facility]ATORYCLIA [id number] [address] ALLIED HEALTHon 06-23-2022 ALLIED HEALTH HNO ID: [id number] Author: RT Rhina(R) Service: Radiology Author Type: [...] RT(R) June 23, 2022 9:41 PM Normal [facility] CBC panel Auto (Bld)on 06-23 Erythrocyte distribution width (RBC) [Ratio] 16.6 % High 11.5-15.0 [facility] Comment on above: Order Comment: Speci men Type: BLOOD SPECIMENOrdering Facility: [facility] Address: [address] [place] [address] Performed By: #### 5 8410-2 ####[facility]ATORYCLIA [id number] [address] [place] Hematocrit (Bld) [Volume fraction] 29.6 % Low 36.0-46.0 [facility] Comment on above: Order Comment: Speci men Type: BLOOD SPECIMENOrdering Facility: [facility] Address: [address] [place] [address] Performed By: #### 5 8410-2 ####[facility]ATORYCLIA [id number] [address] [place] Hemoglobin (Bld) [Mass/Vol] 9.5 g/dL Low 11.5-15.5 [facility] Comment on above: Order Comment: Speci men Type: BLOOD SPECIMENOrdering Facility: [facility] Address: [address] [place] [address] Performed By: #### 5 8410-2 ####[facility]ATORYCLIA [id number] [address] [place] MCH (RBC) [Entitic mass] 30.4 pg Normal 26.0-34.0 [facility] Comment on above: Order Comment: Speci men Type: BLOOD SPECIMENOrdering Facility: [facility] Address: [address] [place] [address] Performed By: #### 5 8410-2 ####[facility]ATORYCLIA [id number] [address] STATES [facility] MCHC (RBC) [Mass/Vol] 32.1 g/dL Normal 30.5-36.0 [facility] Comment on above: Order Comment: Speci men Type: BLOOD SPECIMENOrdering Facility: [facility] Address: [address] [place] [address] Performed By: #### 5 8410-2 ####[facility]ATORYCLIA [id number] [address] [place] MCV (RBC) [Entitic vol] 94.6 fL Normal 80.0-100.0 [facility] Comment on above: Order Comment: Speci men Type: BLOOD SPECIMENOrdering Facility: [facility] Address: [address] [place] [address] Performed By: #### 5 8410-2 ####[facility]ATORYCLIA [id number] [address] [place] Nucleated RBC (Bld) [#/Vol] 0.07 10*3/uL High <0.01 [facility] Comment on above: Order Comment: Speci men Type: BLOOD SPECIMENOrdering Facility: [facility] Address: [address] [place] [address] Performed By: #### 5 8410-2 ####[facility]ORYCLIA [id number] [address] [place] Platelet mean volume (Bld) [Entitic vol] 9.9 fL Normal 9.0-12.7 [facility] Comment on above: Order Comment: Speci men Type: BLOOD SPECIMENOrdering Facility: [facility] Address: [address] [place] [address] Performed By: #### 5 8410-2 ####[facility]ATORYCLIA [id number] [place] [address] [place] Platelets (Bld) [#/Vol] 241 10*3/uL Normal 150-400 [facility] Comment on above: Order Comment: Speci men Type: BLOOD SPECIMENOrdering Facility: [facility] Address: [address] [place] [address] Performed By: #### 5 8410-2 ####[facility]ATORYCLIA [id number] [address] [facility] RBC (Bld) [#/Vol] 3.13 10*6/uL Low 3.90-5.20 [facility] Comment on above: Order Comment: Speci men Type: BLOOD SPECIMENOrdering Facility: [facility] Address: [address] [place] [address] Performed By: #### 5 8410-2 ####[facility]ATORYCLIA [id number] [address] WBC (Bld) [#/Vol] 6.86 10*3/uL Normal 3.70-11.00 [facility] Comment on above: Order Comment: Speci men Type: BLOOD SPECIMENOrdering Facility: [facility] Address: [address] [place] [address] Performed By: #### 5 8410-2 ####[facility]ATORYCLIA [id number] [address] NUTRITIONon 06-23-2022 NUTRITION HNO ID: [id number] Author: Parul Mcallister RD Service: Nutrition Therapy Author Type: Registered Dietitian Type: Nutrition Filed: 06/23/2022 2:28 PM Note Text: NUTRITION THERAPY INITIAL ASSESSMENT SERVICE DATE: 06/23/2022 SERVICE TIME: 11:09 AM Nutrition Assessment: Recommended Malnutrition Diagnosis: No Malnutrition Identified Nutrition Diagnosis: Problem: Suboptimal protein/energy intake Related to: Inability to consume sufficient nutrients As evidenced by: Patient/family self-report;Intake records Estimated kilocalorie needs: 1552-9139 Calorie Calculation Method: 25-30 kcals/kg Estimated protein [...] June 23, 2022 TIME: 11:09 AM Normal [facility] XR CHEST 2V FRONTAL/LATon XR CHEST 2V [...] sites of pneumonia. Small bilateral pleural effusions. 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 Transcribe Date/Time: Jun 24 2022 6:34A Dictated by : DI MINER MD This examination was interpreted and the report reviewed and electronically signed by: DI MINER MD on Jun 24 2022 6:36AM EST [id number] Normal [facility] aPTT PPPon 06-23-2022 aPTT Coag (PPP) [Time] 46.7 s High 23.0-32.4 [facility] Comment on above: Order Comment: Speci men Type: BLOOD SPECIMENOrdering Facility: [facility] Address: [address] [place] [address] Performed By: #### 1 4979-9 ####[facility]ATORYCLIA [id number] [address] [facility] aPTT Coag (PPP) [Time] 53.8 s High 23.0-32.4 [facility] Comment on above: Order Comment: Speci men Type: BLOOD SPECIMENOrdering Facility: [facility] Address: [address] [place] [address] Performed By: #### 1 4979-9 ####[facility]ATORYCLIA [id number] [address] aPTT Coag (PPP) [Time] 114.5 s High 23.0-32.4 [facility] Comment on above: Order Comment: Speci men Type: BLOOD SPECIMEN [facility] Address: [address] [address] Performed By: #### T SCR #### [facility] CLIA [id number] [address] CBC W Auto Differential pane l (Bld)on 06-22-2022 Basophils (Bld) [#/Vol] 0.03 10*3/uL Normal <0.11 [facility] Comment on above: Order Comment: Speci men Type: BLOOD SPECIMENOrdering Facility: [facility] Address: [address] [place] [address] Result Comment: Diff erential confirmed by visual scan of peripheral blood smear slide Performed By: #### 5 7021-8 ####[facility]ORATORYCLIA [id number] [address] Basophils/100 WBC (Bld) 0.5 % Normal A [facility] Comment on above: Order Comment: Speci men Type: BLOOD SPECIMENOrdering Facility: [facility] Address: [address] [place] [address] Performed By: #### 5 7021-8 ####[facility]ORATORYCLIA [id number] [address] Differential cell count method Nom (Bld) Auto Normal [facility] Comment on above: Order Comment: Speci men Type: BLOOD SPECIMENOrdering Facility: [facility] Address: [address] [address] Performed By: #### 5 7021-8 ####[facility]ORATORYCLIA [id number] [address] STATES [facility] Eosinophils (Bld) [#/Vol] 10*3/uL Normal <0.46 [facility] Comment on above: Order Comment: Speci men Type: BLOOD SPECIMENOrdering Facility: [facility] Address: [address] [address] Performed By: #### 5 7021-8 ####[facility]ATORYCLIA [id number] [address] [place] Eosinophils/100 WBC (Bld) 0.0 % Normal [facility] Comment on above: Order Comment: Speci men Type: BLOOD SPECIMENOrdering Facility: [facility] Address: [address] [place] [address] Performed By: #### 5 7021-8 ####[facility]ORATORYCLIA [id number] [address] [place] Erythrocyte distribution width (RBC) [Ratio] 16.2 % High 11.5-15.0 [facility] Comment on above: Order Comment: Speci men Type: BLOOD SPECIMENOrdering Facility: [facility] Address: [address] [place] [address] Performed By: #### 5 7021-8 ####[facility]ORATORYCLIA [id number] [address] [place] Hematocrit (Bld) [Volume fraction] 25.1 % Low 36.0-46.0 [facility] Comment on above: Order Comment: Speci men Type: BLOOD SPECIMENOrdering Facility: [facility] Address: [address] [place] [address] Performed By: #### 5 7021-8 ####[facility] LABORATORYCLIA [id number] [address] [place] Hemoglobin (Bld) [Mass/Vol] 8.4 g/dL Low 11.5-15.5 [facility] Comment on above: Order Comment: Speci men Type: BLOOD SPECIMENOrdering Facility: [facility] Address: [address] [place] [address] Performed By: #### 5 7021-8 ####[facility] LABORATORYCLIA [id number] [address] [place] Immature granulocytes (Bld) [#/Vol] 0.60 10*3/uL High <0.10 [facility] Comment on above: Order Comment: Speci men Type: BLOOD SPECIMENOrdering Facility: [facility] Address: [address] [address] Performed By: #### 5 7021-8 ####[facility] LABORATORYCLIA [id number] [address] Immature granulocytes/100 WBC (Bld) 10.3 % Normal [facility] Comment on above: Order Comment: Speci men Type: BLOOD SPECIMENOrdering Facility: [facility] Address: [address] [place] [address] Performed By: #### 5 7021-8 ####[facility] LABORATORYCLIA [id number] [address] [place] Lymphocytes (Bld) [#/Vol] 1.38 10*3/uL Normal 1.00-4.00 [facility] Comment on above: Order Comment: Speci men Type: BLOOD SPECIMENOrdering Facility: [facility] Address: [address] [place] [address] Performed By: #### 5 7021-8 ####[facility] LABORATORYCLIA [id number] [address] Lymphocytes/100 WBC (Bld) 23.7 % Normal [facility] Comment on above: Order Comment: Speci men Type: BLOOD SPECIMENOrdering Facility: [facility] Address: [address] [place] [address] Performed By: #### 5 7021-8 ####[facility] LABORATORYCLIA [id number] [address] [place] MCH (RBC) [Entitic mass] 31.2 pg Normal 26.0-34.0 [facility] Comment on above: Order Comment: Speci men Type: BLOOD SPECIMENOrdering Facility: [facility] Address: [address] [place] [address] Performed By: #### 5 7021-8 ####[facility] LABORATORYCLIA [id number] [address] [place] MCHC (RBC) [Mass/Vol] 33.5 g/dL Normal 30.5-36.0 [facility] Comment on above: Order Comment: Speci men Type: BLOOD SPECIMENOrdering Facility: [facility] Address: [address] [place] [address] Performed By: #### 5 7021-8 ####[facility] LABORATORYCLIA [id number] [address] [place] MCV (RBC) [Entitic vol] 93.3 fL Normal 80.0-100.0 A [facility] Comment on above: Order Comment: Speci men Type: BLOOD SPECIMENOrdering Facility: [facility] Address: [address] [place] [address] Performed By: #### 5 7021-8 ####[facility] LABORATORYCLIA [id number] [address] [place] Monocytes (Bld) [#/Vol] 0.50 10*3/uL Normal <0.87 [facility] Comment on above: Order Comment: Speci men Type: BLOOD SPECIMENOrdering Facility: [facility] Address: [address] [place] [address] Performed By: #### 5 7021-8 ####[facility] LABORATORYCLIA [id number] [address] Monocytes/100 WBC (Bld) 8.6 % Normal A [facility] Comment on above: Order Comment: Speci men Type: BLOOD SPECIMENOrdering Facility: [facility] Address: [address] [place] [address] Performed By: #### 5 7021-8 ####[facility] LABORATORYCLIA [id number] [address] [place] Neutrophils (Bld) [#/Vol] 3.31 10*3/uL Normal 1.45-7.50 [facility] Comment on above: Order Comment: Speci men Type: BLOOD SPECIMENOrdering Facility: [facility] Address: [address] [place] [address] Performed By: #### 5 7021-8 ####[facility] LABORATORYCLIA [id number] [address] [place] Neutrophils/100 WBC (Bld) 56.9 % Normal [facility] Comment on above: Order Comment: Speci men Type: BLOOD SPECIMENOrdering Facility: [facility] Address: [address] [place] [address] Performed By: #### 5 7021-8 ####[facility] LABORATORYCLIA [id number] [place] [address] [place] Nucleated RBC (Bld) [#/Vol] 0.10 10*3/uL High <0.01 [facility] Comment on above: Order Comment: Speci men Type: BLOOD SPECIMENOrdering Facility: [facility] Address: [address] [place] [address] Performed By: #### 5 7021-8 ####[facility] LABORATORYCLIA [id number] [address] [place] Nucleated RBC/100 WBC (Bld) [Ratio] 1.7 /100 WBC Normal [facility] Comment on above: Order Comment: Speci men Type: BLOOD SPECIMENOrdering Facility: [facility] Address: [address] [place] [address] Performed By: #### 5 7021-8 ####[facility] LABORATORYCLIA [id number] [address] [place] Platelet mean volume (Bld) [Entitic vol] 9.7 fL Normal 9.0-12.7 [facility] Comment on above: Order Comment: Speci men Type: BLOOD SPECIMENOrdering Facility: [facility] Address: [address] [address] Performed By: #### 5 7021-8 ####[facility] LABORATORYCLIA [id number] [place] [address] [place] Platelets (Bld) [#/Vol] 209 10*3/uL Normal 150-400 [facility] Comment on above: Order Comment: Speci men Type: BLOOD SPECIMENOrdering Facility: [facility] Address: [address] [place] [address] Performed By: #### 5 7021-8 ####[facility] LABORATORYCLIA [id number] [address] RBC (Bld) [#/Vol] 2.69 10*6/uL Low 3.90-5.20 [facility] Comment on above: Order Comment: Speci men Type: BLOOD SPECIMENOrdering Facility: [facility] Address: [address] [place] [address] Performed By: #### 5 7021-8 ####[facility] LABORATORYCLIA [id number] [address] WBC (Bld) [#/Vol] 5.82 10*3/uL Normal 3.70-11.00 [facility] Comment on above: Order Comment: Speci men Type: BLOOD SPECIMENOrdering Facility: [facility] Address: [address] [place], [place] [address] Performed By: #### 5 7021-8 ####[facility] LABORATORYCLIA [id number] [address] CONSULT PROGon 06-22-2022 CONSULT PROG HNO ID: [id number] Author: Eliza Martin APRN.ENERGY SCHEDULER Service: Gastroenterology Author Type: Nurse Specialist Type: [...] stool softene (more content not included)... Normal [facility] Comprehensive metabolic 2000 panelon 06-22-2022 Albumin [Mass/Vol] 2.4 g/dL Low 3.9-4.9 [facility] Comment on above: Order Comment: Speci men Type: BLOOD SPECIMENOrdering Facility: [facility] Address: [address] [address] Performed By: #### 2 4323-8 ####[facility] LABORATORYCLIA [id number] [address] STATES OF [facility] ALP [Catalytic activity/Vol] 129 U/L High 34-123 [facility] Comment on above: Order Comment: Speci men Type: BLOOD SPECIMENOrdering Facility: [facility] Address: [address] [address] Performed By: #### 2 4323-8 ####[facility] LABORATORYCLIA [id number] [address] STATES [facility] ALT With P-5'-P [Catalytic activity/Vol] 21 U/L Normal 7-38 [facility] Comment on above: Order Comment: Speci men Type: BLOOD SPECIMENOrdering Facility: [facility] Address: [address] [place] [address] Performed By: #### 2 4323-8 ####[facility] LABORATORYCLIA [id number] [address] STATES [facility] Anion gap [Moles/Vol] 10 mmol/L Normal 9-18 [facility] Comment on above: Order Comment: Speci men Type: BLOOD SPECIMENOrdering Facility: [facility] Address: [address] [address] Performed By: #### 2 4323-8 ####[facility] LABORATORYCLIA [id number] [place] [address] [place] AST With P-5'-P [Catalytic activity/Vol] 19 U/L Normal 13-35 [facility] Comment on above: Order Comment: Speci men Type: BLOOD SPECIMENOrdering Facility: [facility] Address: [address] [place] [address] Performed By: #### 2 4323-8 ####[facility]ORATORYCLIA [id number] [place] [address] [place] Bilirubin [Mass/Vol] 0.6 mg/dL Normal 0.2-1.3 [facility] Comment on above: Order Comment: Speci men Type: BLOOD SPECIMENOrdering Facility: [facility] Address: [address] [place] [address] Performed By: #### 2 4323-8 ####[facility] LABORATORYCLIA [id number] [place] [address] [place] Calcium [Mass/Vol] 8.6 mg/dL Normal 8.5-10.2 [facility] Comment on above: Order Comment: Speci men Type: BLOOD SPECIMENOrdering Facility: [facility] Address: [address] [place] [address] Performed By: #### 2 4323-8 ####[facility]ORATORYCLIA [id number] [place] [address] [place] Chloride [Moles/Vol] 105 mmol/L Normal 97-105 [facility] Comment on above: Order Comment: Speci men Type: BLOOD SPECIMENOrdering Facility: [facility] Address: [address] [place] [address] Performed By: #### 2 4323-8 ####[facility] LABORATORYCLIA [id number] [place] [address] [place] CO2 [Moles/Vol] 21 mmol/L Low 22-30 [facility] Comment on above: Order Comment: Speci men Type: BLOOD SPECIMENOrdering Facility: [facility] Address: [address] [place] [address] Performed By: #### 2 4323-8 ####[facility]ORATORYCLIA [id number] [address] STATES OF [facility] Creatinine [Mass/Vol] 0.88 mg/dL Normal 0.58-0.96 [facility] Comment on above: Order Comment: Rhina mason Type: BLOOD SPECIMENOrdering Facility: [facility] Address: [address] [place] [address] Performed By: #### 2 4323-8 ####[facility] LABORATORYIA [id number] [address] ESTIMATED GLOMERULAR FILTRATION RATE 66 mL/min/1.73m??? Normal >=60 [facility] Comment on above: Order Comment: Rhina mason Type: BLOOD SPECIMENOrdering Facility: [facility] Address: [address] [place] [address] Result Comment: Isa mated Glomerular Filtration Rate [...] actual GFR. Performed By: #### 2 4323-8 ####[facility] CENTERIA [id number] [address] Glucose [Mass/Vol] 95 mg/dL Normal 74-99 [facility] Comment on above: Order Comment: Rhina isabella Type: BLOOD SPECIMENOrdering Facility: [facility] Address: [address] [place] [address] Result Comment: The [place] Diabetes Association (ADA) provides guidance for cutoff [...] Standards of Medical Care in Diabetes 2016, [place] Diabetes Association. Diabetes Care. 2016.39(Suppl 1). Performed By: #### 2 4323-8 ####[facility] LABORATORYCLIA [id number] [address] STATES [facility] Potassium [Moles/Vol] 4.7 mmol/L Normal 3.7-5.1 [facility] Comment on above: Order Comment: Speci men Type: BLOOD SPECIMENOrdering Facility: [facility] Address: [address] [place] [address] Performed By: #### 2 4323-8 ####[facility] LABORATORYCLIA [id number] [address] STATES OF [facility] Protein [Mass/Vol] 5.3 g/dL Low 6.3-8.0 [facility] Comment on above: Order Comment: Speci men Type: BLOOD SPECIMENOrdering Facility: [facility] Address: [address] [place] [address] Performed By: #### 2 4323-8 ####[facility] LABORATORYCLIA [id number] [address] Sodium [Moles/Vol] 136 mmol/L Normal 136-144 [facility] Comment on above: Order Comment: Speci men Type: BLOOD SPECIMENOrdering Facility: [facility] Address: [address] [place] [address] Performed By: #### 2 4323-8 ####[facility] LABORATORYCLIA [id number] [address] STATES [facility] Urea nitrogen [Mass/Vol] 7 mg/dL Normal 7-21 [facility] Comment on above: Order Comment: Speci men Type: BLOOD SPECIMENOrdering Facility: [facility] Address: [address] [place] [address] Performed By: #### 2 4323-8 ####[facility] LABORATORYCLIA [id number] [address] [place] H. pylori IgG IA Qlon 2021 H. PYLORI IGG, QUAL Negative Normal Negative [facility] Comment on above: Order Comment: Rhina mason Type: BLOOD SPECIMENOrdering Facility: [facility] Address: [address] [place] [address] Result Comment: Shakeel ot exclude H. pylori infection if the specimen collected 3-4 weeks after onset of symptoms. Performed By: #### 1 7859-0 ####[facility] LABCLIA [id number] [facility] [id number] [place] PT panel Coag (PPP)on 2021 INR Coag (PPP) [Relative time] {INR} Low 0.9-1.3 [facility] Comment on above: Order Comment: Rhina mason Type: BLOOD SPECIMEN [facility] Address: [address] [place] [address] Result Comment: Mayra min K Antagonist (VKA) Therapeutic Range: INR 2 to 3 (Target INR of 2.5) Note: For patients treated with VKA drugs, such as warfarin, the [employer] 2012 Guideline recommends [...] 252-289 Performed By: #### T SCR #### [facility] CLIA [id number] [address] [place] [address] [place] PT Coag (PPP) [Time] 9.9 s Normal 9.7-13.0 [facility] Comment on above: Order Comment: Rhina mason Type: BLOOD SPECIMEN [facility] Address: [place] [address] Performed By: #### T SCR #### [facility] CLIA [id number] 1 [place] [address] [place] THERAPY NTon 06-22-2022 THERAPY NT HNO ID: [id number] Author: Shannan Segovia, OTR/L Service: Occupational Therapy Author Type: Occupational Therapist Type: Therapy (PT/OT/Speech/Resp) Filed: 06/22/2022 11:27 AM Note Text: Occupational Therapy Evaluation SERVICE DATE: 06/22/2022 SERVICE TIME: 1037 to 1105 ROOM: [address] [address] Recommended Discharge Disposition: Subacute/SNF Recommended Discharge Disposition [...] time Occupational Factors 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 Normal [facility] US ARTERIAL PVR LOWERon 12-0 US ARTERIAL PVR LOWER * * *Final Report* * * DATE OF EXAM: Jun 22 2022 7:43AM A2U 1107 - US ARTERIAL PVR LOWER / PROCEDURE REASON: Arterial embolism * * * * Physician Interpretation * * * * Non-Invasive Vascular Laboratory [facility] Lower Extremity Arterial Physiology Study Bilateral/Complete Date of service/time: 06/22/2022 7:12:00 AM HOSPITAL Name: [facility] Date of : 1940 [...] all veins 06/16/22. Dopplers study was done. 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 Technologist: Azar Holcomb S Ordering physician: DWAYNE ZAIDI Interpreting physician: Supriya Ponce MD Final (Updated) RP 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: IRENE Transcribe Date/Time: Jun 22 2022 7:12A Dictated by : SUPRIYA PONCE MD This examination was interpreted and the report reviewed and electronically signed by: SUPRIYA PONCE MD on Jun 24 2022 1:27PM EST [id number] Normal [facility] aPTT PPPon 06-22-2022 aPTT Coag (PPP) [Time] 43.0 s High 23.0-32.4 [facility] Comment on above: Order Comment: Speci men Type: BLOOD SPECIMENOrdering Facility: [facility] Address: [address] [place] [address] Performed By: #### 1 4979-9 ####[facility] LABORATORYCLIA [id number] [address] aPTT Coag (PPP) [Time] 25.6 s Normal 23.0-32.4 [facility] Comment on above: Order Comment: Speci men Type: BLOOD SPECIMEN [facility] Address: [address] [place] [address] Performed By: #### T SCR #### [facility] CLIA [id number] [address] ANES POSTPROC EVALon 022 ANES POSTPROC EVAL HNO ID: [id number] Author: Olu Vasquez MD Service: Anesthesiology Author Type: Physician Type: Anesthesia Postprocedure Evaluation Filed: 06/21/2022 3:20 PM Note Text: POST ANESTHESIA EVALUATION NOTE : 1940 Procedure Summary Date: 06/21/22 Room / Location: [facility] Anesthesia Start: 1134 Anesthesia Stop: 1158 Procedure: [...] Documentation SIGNATURE: Olu Vasquez MD PATIENT NAME: Mel Castillo DATE: June 21, 2022 TIME: 3:19 PM CSN: [id number] Normal [facility] ANES PRE-OPon 06-21-2022 ANES PRE-OP HNO ID: [id number] Author: Olu Vasquez MD Service: Anesthesiology Author Type: Physician Type: Anesthesia Preprocedure Evaluation Filed: 06/21/2022 11:32 AM Note Text: ANESTHESIOLOGY DAY OF SURGERY NOTE : 1940 Procedure Information Date/Time: 06/21/22 1130 Scheduled providers: Sim Elizabeth MD Procedure: EGD DIAGNOSTIC Location: [facility] Estimated body mass index is 26.94 kg/m? [...] and consent discussed: yes. Patient / Responsible Libertarian agrees to proceed: yes Patient / Surrogate [...] Olu Dietrich (more content not included)... Normal [facility] CONSULT PROGon 06-21-2022 CONSULT PROG HNO ID: [id number] Author: Fidel Carmen APRN.HAZARDOUS MATERIALS TANKER DRIVER Service: Wound/Ostomy Author Type: Nurse Practitioner Type: Consult Progress Note Filed: 06/21/2022 1:41 PM Note Text: WOUND CARE SERVICE CONSULT GROOMING ASSISTANT NOTE SERVICE DATE: 06/21/2022 SERVICE TIME: 941 TIME SPENT (minutes): 30 REASON FOR CONSULT: MAD buttocks, atypical wound Right middle finger. CHIEF COMPLAINT: Right middle finger Subjective HISTORY OF PRESENT ILLNESS: Ms. 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, and presented to hospital with complaints of [...] 06/21/2022 9:57 AM Wound Image Site Assessment [place];Red (small open area noted) Allie-Wound Assessment [place];Intact Drainage Amount None Odor None Treatments Cleansed;Protective Barrier Ointment Dressing Foam- Adhesive Dressing Changed Changed Dressing Status Clean;Dry;Intact Active Orders Date Order Priority Status Authorizing Provider 06/21/22 1248 DRESSING CARE (SPECIFY) ([place]) Routine Active Fidel Carmen APRN.HAZARDOUS MATERIALS TANKER DRIVER - Specify:: Apply allevyn foam to coccyx, peel down every shift to assess skin and to apply zinc oxide, change every 3 days or if soiled. 06/21/22 1248 zinc oxide 20 % Active Fidel Carmen APRN.HAZARDOUS MATERIALS TANKER DRIVER Wound 06/21/22 0948 Atypical Wound Finger (Comment which one) Right (Active) Assessments 06/21/2022 9:48 AM Wound Image Site Assessment [place];White (shiney) Allie-Wound Assessment Intact Shape irregular Drainage Description Sanguineous (intermittent, per pt.) Drainage Amount None Odor None Treatments Cleansed Dressing Xeroform;Gauze Dr (more content not included)... Normal [facility] Hgb Bld-mCncon 06-21-2022 Hemoglobin (Bld) [Mass/Vol] 6.9 g/dL Low 11.5-15.5 [facility] Comment on above: Order Comment: Speci men Type: BLOOD SPECIMENOrdering Facility: [facility] Address: [address] [place], [place] [address] Performed By: #### 3 2355-0 #### [facility] CLIA [id number] [address] [place] [address] [place] OPERATIVE NOon 06-21-2022 OPERATIVE NO HNO ID: [id number] Author: Sim Elizabeth MD Service: Gastroenterology Author Type: Physician Type: Operative Report Filed: 06/21/2022 12:01 PM Note Text: OPERATIVE/PROCEDURE REPORT LOG ID: [id number] Surgery/Procedure Date: 06/21/2022 Incision/Procedure Start Time: 11:44 AM Incision Close/Procedure End Time: 11:49 AM Surgeon(s)/Proceduralis t(s) and Picker Machine Operator(s): Surgeon(s) and Role: * Sim Elizabeth [...] 21, 2022 TIME: 11:53 AM PAGER/CONTACT #: [phone] Normal [facility] THERAPY NTon 06-21-2022 THERAPY NT HNO ID: [id number] Author: Miranda Burroughs PT Service: Physical Therapy Author Type: Physical Therapist Type: Therapy (PT/OT/Speech/Resp) Filed: 06/21/2022 10:12 AM Note Text: Physical Therapy Evaluation SERVICE DATE: 06/21/2022 SERVICE TIME: 0832 to 0855 ROOM: [place] [address] Recommended Discharge Disposition: Subacute/SNF Recommended Discharge Disposition [...] Available: PRN (someone can drive her to [facility]; someone drops off food as they are [...] while, someone has to take her to [facility], ambulates without AD, takes care of home [...] gait and mobility-other Interventions Provided: Evaluation;Therapeutic Activity (06194) $ Evaluation-Moderate (65118) Billed Units: 1 unit Therapeutic Activity (39034) Treatment Minutes: 8 $ Therapeutic Activity (42521) Billed Units: 1 unit Educated pt on [...] therapeutic skills (more content not included)... Normal [facility] TYPE + SCREENon 06-21-2022 ABO AB Normal [facility] Comment on above: Order Comment: Speci men Type: BLOOD SPECIMEN [facility] Address: [address] [place] [address] Performed By: #### T SCR #### [facility] CLIA [id number] [address] HISTORICAL AB SCR STATUS Negative Normal [facility] Comment on above: Order Comment: Speci men Type: BLOOD SPECIMEN [facility] Address: [address] [place] [address] Performed By: #### T SCR #### [facility] CLIA [id number] [address] Rh Nom (Bld) Positive Normal [facility] Comment on above: Order Comment: Speci men Type: BLOOD SPECIMEN [facility] Address: [address] [place] [address] Performed By: #### T SCR #### [facility] CLIA [id number] [address] TYPE AND SCREEN EXPIRATION 06/24/2022 23:59 Normal [facility] Comment on above: Order Comment: Speci men Type: BLOOD SPECIMEN [facility] Address: [address] [place] [address] Performed By: #### T SCR #### [facility] CLIA [id number] [address] ALLIED HEALTHon 06-20-2022 ALLIED HEALTH HNO ID: [id number] Author: RT Tamica(R) Service: Radiology Author Type: [...] PERIPHERAL IV DATA: Inpatient - refer to [facility] documentation RADIOLOGY DEPARTMENT: CT; Exam(s) Completed: Abdomen/Pelvis SIGNATURE: RT Tamica(R) PATIENT NAME: Mel Castillo DATE: June 20, 2022 TIME: 3:15 PM Normal [facility] Basic metabolic 2000 panelon 06-20-2022 Anion gap [Moles/Vol] 8 mmol/L Low 9-18 [facility] Comment on above: Order Comment: Speci men Type: BLOOD SPECIMENOrdering Facility: [facility] Address: [address] [place] [address] Performed By: #### 2 4321-2 ####[facility] LABORATORYCLIA [id number] [place] [address] [place] Calcium [Mass/Vol] 8.5 mg/dL Normal 8.5-10.2 [facility] Comment on above: Order Comment: Speci men Type: BLOOD SPECIMENOrdering Facility: [facility] Address: [address] [place] [address] Performed By: #### 2 4321-2 ####[facility] LABORATORYCLIA [id number] [place] [address] [place] Chloride [Moles/Vol] 106 mmol/L High 97-105 [facility] Comment on above: Order Comment: Speci men Type: BLOOD SPECIMENOrdering Facility: [facility] Address: [address] [place] [address] Performed By: #### 2 4321-2 ####[facility] LABORATORYCLIA [id number] [address] CO2 [Moles/Vol] 22 mmol/L Normal 22-30 [facility] Comment on above: Order Comment: Speci men Type: BLOOD SPECIMENOrdering Facility: [facility] Address: [address] [place] [address] Performed By: #### 2 4321-2 ####[facility]ELCL[facility] [id number] [address] Creatinine [Mass/Vol] 0.84 mg/dL Normal 0.58-0.96 [facility] Comment on above: Order Comment: Speci men Type: BLOOD SPECIMENOrdering Facility: [facility] Address: [address] [place] [address] Performed By: #### 2 4321-2 ####[facility] LABORATORYCLIA [id number] [address] ESTIMATED GLOMERULAR FILTRATION RATE 69 mL/min/1.73m??? Normal >=60 [facility] Comment on above: Order Comment: Speci men Type: BLOOD SPECIMENOrdering Facility: [facility] Address: [address] [place] [address] Result Comment: Isa mated Glomerular Filtration Rate [...] actual GFR. Performed By: #### 2 4321-2 ####[facility] LABORATORYCLIA [id number] [place] [address] [place] Glucose [Mass/Vol] 92 mg/dL Normal 74-99 [facility] Comment on above: Order Comment: Speci men Type: BLOOD SPECIMENOrdering Facility: [facility] Address: [address] [place] [address] Result Comment: The [place] Diabetes Association (ADA) provides guidance for cutoff [...] Standards of Medical Care in Diabetes 2016, [place] Diabetes Association. Diabetes Care. 2016.39(Suppl 1). Performed By: #### 2 4321-2 ####[facility] LABORATORYCLIA [id number] [place] [address] [place] Potassium [Moles/Vol] 4.7 mmol/L Normal 3.7-5.1 [facility] Comment on above: Order Comment: Rhina men Type: BLOOD SPECIMENOrdering Facility: [facility] Address: [address] [place] [address] Performed By: #### 2 4321-2 ####[facility] LABORATORYCLIA [id number] [place] [address] [place] Sodium [Moles/Vol] 136 mmol/L Normal 136-144 [facility] Comment on above: Order Comment: Speci men Type: BLOOD SPECIMENOrdering Facility: [facility] Address: [address] [place] [address] Performed By: #### 2 4321-2 ####[facility] LABORATORYCLIA [id number] [place] [address] [place] Urea nitrogen [Mass/Vol] 16 mg/dL Normal 7-21 [facility] Comment on above: Order Comment: Speci men Type: BLOOD SPECIMENOrdering Facility: [facility] Address: [address] [address] Performed By: #### 2 4321-2 ####[facility] LABORATORYCLIA [id number] [address] CBC panel Auto (Bld)on 06-20 Erythrocyte distribution width (RBC) [Ratio] 15.9 % High 11.5-15.0 [facility] Comment on above: Order Comment: Speci men Type: BLOOD SPECIMENOrdering Facility: [facility] Address: [address] [place] [address] Performed By: #### 3 2355-0 #### [facility] CLIA [id number] [address] Hematocrit (Bld) [Volume fraction] 23.9 % Low 36.0-46.0 [facility] Comment on above: Order Comment: Speci men Type: BLOOD SPECIMENOrdering Facility: [facility] Address: [address] [place] [address] Performed By: #### 3 2355-0 #### [facility] CLIA [id number] [address] Hemoglobin (Bld) [Mass/Vol] 7.8 g/dL Low 11.5-15.5 [facility] Comment on above: Order Comment: Speci men Type: BLOOD SPECIMENOrdering Facility: [facility] Address: [address] [place] [address] Performed By: #### 3 2355-0 #### [facility] [place] [facility] CLIA [id number] [address] MCH (RBC) [Entitic mass] 30.7 pg Normal 26.0-34.0 [facility] Comment on above: Order Comment: Speci men Type: BLOOD SPECIMENOrdering Facility: [facility] Address: [address] [place] [address] Performed By: #### 3 2355-0 #### [facility] [place] [facility] CLIA [id number] [address] MCHC (RBC) [Mass/Vol] 32.6 g/dL Normal 30.5-36.0 [facility] Comment on above: Order Comment: Speci men Type: BLOOD SPECIMENOrdering Facility: [facility] Address: [address] [place] [address] Performed By: #### 3 2355-0 #### [facility] CLIA [id number] [address] MCV (RBC) [Entitic vol] 94.1 fL Normal 80.0-100.0 [facility] Comment on above: Order Comment: Speci men Type: BLOOD SPECIMENOrdering Facility: [facility] Address: [address] [place] [address] Performed By: #### 3 2355-0 #### [facility] CLIA [id number] [address] [facility] Nucleated RBC (Bld) [#/Vol] 0.09 10*3/uL High <0.01 [facility] Comment on above: Order Comment: Speci men Type: BLOOD SPECIMENOrdering Facility: [facility] Address: [address] [place] [address] Performed By: #### 3 2355-0 #### [facility] CLIA [id number] [address] [facility] Platelet mean volume (Bld) [Entitic vol] 9.8 fL Normal 9.0-12.7 [facility] Comment on above: Order Comment: Speci men Type: BLOOD SPECIMENOrdering Facility: [facility] Address: [address] [place] [address] Performed By: #### 3 2355-0 #### [facility] CLIA [id number] [address] [place] Platelets (Bld) [#/Vol] 233 10*3/uL Normal 150-400 [facility] Comment on above: Order Comment: Speci men Type: BLOOD SPECIMENOrdering Facility: [facility] Address: [address] [address] Performed By: #### 3 2355-0 #### [facility] CLIA [id number] [address] [facility] RBC (Bld) [#/Vol] 2.54 10*6/uL Low 3.90-5.20 [facility] Comment on above: Order Comment: Speci men Type: BLOOD SPECIMENOrdering Facility: [facility] Address: [address] [address] Performed By: #### 3 2355-0 #### [facility] CLIA [id number] [address] WBC (Bld) [#/Vol] 9.90 10*3/uL Normal 3.70-11.00 [facility] Comment on above: Order Comment: Speci men Type: BLOOD SPECIMENOrdering Facility: [facility] Address: [address] [address] Performed By: #### 3 2355-0 #### [facility] CLIA [id number] [address] CONSULTon 06-20-2022 CONSULT HNO ID: [id number] Author: Christine Edouard MD Service: ? Author [...] needed woul (more content not included)... Normal [facility] CT ABD/PEL W IVCONon 022 CT ABD/PEL W IVCON * * *Final Report* * * DATE OF EXAM: Jun 20 2022 2:57PM [facility] 0530 - CT ABD/PEL W IVCON / [...] bilateral pleural effusions, larger on the right. Electrification Adviser (topogram) images: No additional findings. IMPRESSION: Acute sigmoid diverticulitis. No evidence of perforation or diverticular abscess. Consolidation and volume loss with bronchial wall thickening in both lower lobes and right middle lobe. Small bilateral pleural effusions, larger on the right. Diffuse subcutaneous edema of the left flank extending into the thigh. Bilateral renal cortical scarring and small cysts. Atherosclerotic arterial and aortic calcifications. 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 Transcribe Date/Time: Jun 20 2022 3:18P Dictated by : ID MAYES MD This examination was interpreted and the report reviewed and electronically signed by: DI MAYES MD on Jun 20 2022 3:24PM EST [id number] Normal [facility] Hgb Bld-mCncon 06-20-2022 Hemoglobin (Bld) [Mass/Vol] 7.0 g/dL Low 11.5-15.5 [facility] Comment on above: Order Comment: Specrobson mason Type: BLOOD SPECIMEN Ordering Facility[facility] Address: [address] [place] [address] Performed By: #### T SCR #### [facility] [place] [id number] [address] HEALTH 06-19-2022 ALLIED HEALTH HNO ID: [id number] Author: Parul Ryan RN Service: Infection Prevention Author Type: ? Type: Allied Health Filed: 06/19/2022 5:49 PM Note Text: INFECTION PREVENTION NOTE Admission Date: 06/16/2022 Patient meets ?COVID Resolved? criteria and isolation has been discontinued as per CDC guidance. SIGNATURE: Parul Ryan RN PATIENT NAME: Mel Castillo DATE: June 19, 2022 TIME: 5:49 PM PAGER/CONTACT #: Infection Prevention, [id number] Infection Prevention after hours/weekend pager: [phone] Normal [facility] Basic metabolic 2000 panelon 06-19-2022 Anion gap [Moles/Vol] 5 mmol/L Low 9-18 [facility] Comment on above: Order Comment: Specrobson mason Type: BLOOD SPECIMENOrdering Facility: [facility] Address: [address] [place] [address] Performed By: #### 3 2355-0 #### [facility] CLIA [id number] [address] Calcium [Mass/Vol] 8.1 mg/dL Low 8.5-10.2 [facility] Comment on above: Order Comment: Speci men Type: BLOOD SPECIMENOrdering Facility: [facility] Address: [address] [place] [address] Performed By: #### 3 2355-0 #### [facility] CLIA [id number] [address] [place] Chloride [Moles/Vol] 105 mmol/L Normal 97-105 [facility] Comment on above: Order Comment: Speci men Type: BLOOD SPECIMENOrdering Facility: [facility] Address: [address] [place] [address] Performed By: #### 3 2355-0 #### [facility] CLIA [id number] [address] CO2 [Moles/Vol] 23 mmol/L Normal 22-30 [facility] Comment on above: Order Comment: Speci men Type: BLOOD SPECIMENOrdering Facility: [facility] Address: [address] [place] [address] Performed By: #### 3 2355-0 #### [facility] CLIA [id number] [address] Creatinine [Mass/Vol] 0.94 mg/dL Normal 0.58-0.96 [facility] Comment on above: Order Comment: Speci men Type: BLOOD SPECIMENOrdering Facility: [facility] Address: [address] [place] [address] Performed By: #### 3 2355-0 #### [facility] CLIA [id number] [address] ESTIMATED GLOMERULAR FILTRATION RATE 61 mL/min/1.73m??? Normal >=60 [facility] Comment on above: Order Comment: Speci men Type: BLOOD SPECIMENOrdering Facility: [facility] Address: [address] [address] Result Comment: Isa mated Glomerular Filtration Rate [...] GFR. Performed By: #### 3 2355-0 #### [facility] CLIA [id number] [address] [place] [address] [place] Glucose [Mass/Vol] 115 mg/dL High 74-99 [facility] Comment on above: Order Comment: Rhina mason Type: BLOOD SPECIMENOrdering Facility: [facility] Address: [address] [address] Result Comment: The [place] Diabetes Association (ADA) provides guidance for cutoff [...] Standards of Medical Care in Diabetes 2016, [place] Diabetes Association. Diabetes Care. 2016.39(Suppl 1). Performed By: #### 3 2355-0 #### [facility] CLIA [id number] [address] [place] [address] [place] Potassium [Moles/Vol] 4.4 mmol/L Normal 3.7-5.1 [facility] Comment on above: Order Comment: Rhina mason Type: BLOOD SPECIMENOrdering Facility: [facility] Address: [address] [address] Performed By: #### 3 2355-0 #### [facility] CLIA [id number] [address] Sodium [Moles/Vol] 133 mmol/L Low 136-144 [facility] Comment on above: Order Comment: Speci men Type: BLOOD SPECIMENOrdering Facility: [facility] Address: [address] [address] Performed By: #### 3 2355-0 #### [facility] CLIA [id number] [address] [place] Urea nitrogen [Mass/Vol] 22 mg/dL High 7-21 [facility] Comment on above: Order Comment: Speci men Type: BLOOD SPECIMENOrdering Facility: [facility] Address: [address] [address] Performed By: #### 3 2355-0 #### [facility] CLIA [id number] [address] STATES [facility] CBC panel Auto (Bld)on 06-19 Erythrocyte distribution width (RBC) [Ratio] 15.6 % High 11.5-15.0 [facility] Comment on above: Order Comment: Speci men Type: BLOOD SPECIMENOrdering Facility: [facility] Address: [address] [address] Performed By: #### 5 8410-2 ####[facility]ORATORYCLIA [id number] [address] STATES OF [facility] Hematocrit (Bld) [Volume fraction] 24.0 % Low 36.0-46.0 [facility] Comment on above: Order Comment: Speci men Type: BLOOD SPECIMENOrdering Facility: [facility] Address: [address] [address] Performed By: #### 5 8410-2 ####[facility]ATORYCLIA [id number] [address] [place] Hemoglobin (Bld) [Mass/Vol] 7.6 g/dL Low 11.5-15.5 [facility] Comment on above: Order Comment: Speci men Type: BLOOD SPECIMENOrdering Facility: [facility] Address: [address] [address] Performed By: #### 5 8410-2 ####[facility] LABORATORYCLIA [id number] [address] MCH (RBC) [Entitic mass] 29.9 pg Normal 26.0-34.0 [facility] Comment on above: Order Comment: Speci men Type: BLOOD SPECIMENOrdering Facility: [facility] Address: [address] [place] [address] Performed By: #### 5 8410-2 ####[facility] LABORATORYCLIA [id number] [address] MCHC (RBC) [Mass/Vol] 31.7 g/dL Normal 30.5-36.0 [facility] Comment on above: Order Comment: Speci men Type: BLOOD SPECIMENOrdering Facility: [facility] Address: [address] [place] [address] Performed By: #### 5 8410-2 ####[facility] LABORATORYCLIA [id number] [address] MCV (RBC) [Entitic vol] 94.5 fL Normal 80.0-100.0 [facility] Comment on above: Order Comment: Speci men Type: BLOOD SPECIMENOrdering Facility: [facility] Address: [address] [place] [address] Performed By: #### 5 8410-2 ####[facility]ATORYCLIA [id number] [address] Nucleated RBC (Bld) [#/Vol] 0.04 10*3/uL High <0.01 [facility] Comment on above: Order Comment: Speci men Type: BLOOD SPECIMENOrdering Facility: [facility] Address: [address] [place] [address] Performed By: #### 5 8410-2 ####[facility]ATORYCLIA [id number] [address] Platelet mean volume (Bld) [Entitic vol] 10.0 fL Normal 9.0-12.7 [facility] Comment on above: Order Comment: Speci men Type: BLOOD SPECIMENOrdering Facility: [facility] Address: [address] [place] [address] Performed By: #### 5 8410-2 ####[facility]ATORYCLIA [id number] [address] [place] Platelets (Bld) [#/Vol] 219 10*3/uL Normal 150-400 [facility] Comment on above: Order Comment: Speci men Type: BLOOD SPECIMENOrdering Facility: [facility] Address: [address] [address] Performed By: #### 5 8410-2 ####[facility]ATORYCLIA [id number] [address] [place] RBC (Bld) [#/Vol] 2.54 10*6/uL Low 3.90-5.20 [facility] Comment on above: Order Comment: Speci men Type: BLOOD SPECIMENOrdering Facility: [facility] Address: [address] [address] Performed By: #### 5 8410-2 ####[facility]ATORYCLIA [id number] [address] [facility] WBC (Bld) [#/Vol] 8.55 10*3/uL Normal 3.70-11.00 [facility] Comment on above: Order Comment: Speci men Type: BLOOD SPECIMENOrdering Facility: [facility] Address: [address] [place] [address] Performed By: #### 5 8410-2 ####[facility]ORATORYCLIA [id number] [address] [place] Hemoccult Stl Ql IAon 2021 Lower GI hemoglobin IA Ql (Stl) Positive Abnormal Negative [facility] Comment on above: Order Comment: Speci men Type: BLOOD SPECIMEN [facility] Address: [address] [place] [address] Performed By: #### T SCR #### [facility] CLIA [id number] [address] [place] Hgb Bld-mCncon 06-19-2022 Hemoglobin (Bld) [Mass/Vol] 7.6 g/dL Low 11.5-15.5 [facility] Comment on above: Order Comment: Speci men Type: BLOOD SPECIMENOrdering Facility: [facility] Address: [address] [place] [address] Performed By: #### 7 18-7 ####[facility]ORATORYCLIA [id number] [address] [place] Magnesium SerPl-mCncon 06-19 Magnesium [Mass/Vol] 1.9 mg/dL Normal 1.7-2.3 [facility] Comment on above: Order Comment: Speci men Type: BLOOD SPECIMENOrdering Facility: [facility] Address: [address] [place] [address] Performed By: #### 3 2355-0 #### [facility] CLIA [id number] [address] [place] OPERATIVE NOon 06-19-2022 OPERATIVE NO HNO ID: [id number] Author: Frida Rodriguez MD Service: Vascular Surgery Author Type: Physician Type: Operative Report Filed: 06/19/2022 2:59 PM Note Text: [facility] - Operative Report MEL GUADARRAMA : 1940 AGE: 81. SEX: F PATIENT TYPE: I HOSP SVC: ICU LOCATION: [facility] ATTENDING PHYSICIAN: DWAYNE ZAIDI CSN NUMBER: [id number] DATE OF SURGERY/PROCEDURE: 06/16/2022 INCISION/PROCEDURE START TIME: 5:01 PM INCISION CLOSE/PROCEDURE END TIME: 6:58 PM PREOPERATIVE DIAGNOSIS: Left lower extremity deep vein thrombosis. POSTOPERATIVE DIAGNOSIS: Left lower extremity deep vein thrombosis. SURGEON: Frida Rodriguez MD SLATE WORKER: Resident, Emanuel Hull SURGERY/PROCEDURE: Venogram with intravascular [...] micropuncture needle and serially upsized to a 5-Danish sheath. A venogram was then performed, which [...] time, the sheath was upsized to an 8-Danish sheath. An intravascular ultrasound was performed. This [...] unit for further monitoring. Frida Rodriguez MD LM:[id number] Normal [facility] Phosphate SerPl-mCncon 06-19 Phosphate [Mass/Vol] 2.4 mg/dL Low 2.7-4.8 [facility] Comment on above: Order Comment: Speci men Type: BLOOD SPECIMENOrdering Facility: [facility] Address: [facility] [place] [address] Performed By: #### 3 2355-0 #### [facility] CLIA [id number] 1 [place] [address] [place] aPTT PPPon 06-19-2022 aPTT Coag (PPP) [Time] 46.9 s High 23.0-32.4 [facility] Comment on above: Order Comment: Speci men Type: BLOOD SPECIMENOrdering Facility: [facility] Address: [address] [place] [address] Performed By: #### 1 4979-9 ####[facility] LABORATORYCLIA [id number] [place] [address] [place] aPTT Coag (PPP) [Time] 83.8 s High 23.0-32.4 [facility] Comment on above: Order Comment: Speci men Type: BLOOD SPECIMENOrdering Facility: [facility] Address: [address] [place] [address] Performed By: #### 3 2355-0 #### [facility] CLIA [id number] [address] [place] Basic metabolic 2000 panelon 06-18-2022 Anion gap [Moles/Vol] 10 mmol/L Normal 9-18 [facility] Comment on above: Order Comment: Speci men Type: BLOOD SPECIMENOrdering Facility: [facility] Address: [address] [place] [address] Performed By: #### 2 4321-2, 84316-9, , 2776-07 ####[facility] LABORATORYCLIA [id number] [place] [address] [place] Calcium [Mass/Vol] 8.0 mg/dL Low 8.5-10.2 [facility] Comment on above: Order Comment: Speci men Type: BLOOD SPECIMENOrdering Facility: [facility] Address: [address] [place] [address] Performed By: #### 2 4321-2, 44687-7, , 2776-07 ####[facility] LABORATORYCLIA [id number] [address] [place] Chloride [Moles/Vol] 102 mmol/L Normal 97-105 [facility] Comment on above: Order Comment: Speci men Type: BLOOD SPECIMENOrdering Facility: [facility] Address: [address] [place] [address] Performed By: #### 2 4321-2, 74385-6, , 2776-07 ####[facility] [id number] [address] STATES [place] [facility] CO2 [Moles/Vol] 21 mmol/L Low 22-30 [facility] Comment on above: Order Comment: Speci men Type: BLOOD SPECIMENOrdering Facility: [facility] Address: [address] [place] [address] Performed By: #### 2 4321-2, 05662-5, , 2776-07 ####[facility]ENTERIA [id number] [address] [facility] Creatinine [Mass/Vol] 1.17 mg/dL High 0.58-0.96 [facility] Comment on above: Order Comment: Speci men Type: BLOOD SPECIMENOrdering Facility: [facility] Address: [address] [place] [address] Performed By: #### 2 4321-2, 04905-1, , 2776-07 ####[facility]IA [id number] [address] [facility] ESTIMATED GLOMERULAR FILTRATION RATE 47 mL/min/1.73m??? Low >=60 [facility] Comment on above: Order Comment: Speci men Type: BLOOD SPECIMENOrdering Facility: [facility] Address: [address] [place] [address] Result Comment: Isa mated Glomerular Filtration Rate [...] actual GFR. Performed By: #### 2 4321-2, 34316-1, , 2776-07 ####[facility] LABORATORYCLIA [id number] [place] [address] [place] Glucose [Mass/Vol] 112 mg/dL High 74-99 [facility] Comment on above: Order Comment: Speci men Type: BLOOD SPECIMENOrdering Facility: [facility] Address: [address] [place] [address] Result Comment: The [place] Diabetes Association (ADA) provides guidance for cutoff [...] Standards of Medical Care in Diabetes 2016, [place] Diabetes Association. Diabetes Care. 2016.39(Suppl 1). Performed By: #### 2 4321-2, 37842-6, , 2776-07 ####[facility] LABORATORYCLIA [id number] [place] [address] [place] Potassium [Moles/Vol] 4.4 mmol/L Normal 3.7-5.1 [facility] Comment on above: Order Comment: Rhina isabella Type: BLOOD SPECIMENOrdering Facility: [facility] Address: [address] [place] [address] Performed By: #### 2 4321-2, 65884-4, , 2776-07 ####[facility] LABORATORYCLIA [id number] [place] [address] [place] Sodium [Moles/Vol] 133 mmol/L Low 136-144 [facility] Comment on above: Order Comment: Samiri isabella Type: BLOOD SPECIMENOrdering Facility: [facility] Address: [address] [place] [address] Performed By: #### 2 4321-2, 30034-6, , 2776-07 ####[facility] LABORATORYCLIA [id number] [place] [address] [place] Urea nitrogen [Mass/Vol] 25 mg/dL High 7-21 [facility] Comment on above: Order Comment: Speci men Type: BLOOD SPECIMENOrdering Facility: [facility] Address: [address] [place] [address] Performed By: #### 2 4321-2, 55452-3, 20321-6, 2777-1 ####[facility] LABORATORYCLIA [id number] [address] [place] CBC panel Auto (Bld)on 06-18 Erythrocyte distribution width (RBC) [Ratio] 15.6 % High 11.5-15.0 [facility] Comment on above: Order Comment: Speci men Type: BLOOD SPECIMENOrdering Facility: [facility] Address: [address] [place] [address] Performed By: #### 5 8410-2 ####[facility] LABORATORYCLIA [id number] [address] [place] Hematocrit (Bld) [Volume fraction] 26.8 % Low 36.0-46.0 [facility] Comment on above: Order Comment: Speci men Type: BLOOD SPECIMENOrdering Facility: [facility] Address: [address] [place] [address] Performed By: #### 5 8410-2 ####[facility] LABORATORYCLIA [id number] [address] [place] Hemoglobin (Bld) [Mass/Vol] 8.5 g/dL Low 11.5-15.5 [facility] Comment on above: Order Comment: Speci men Type: BLOOD SPECIMENOrdering Facility: [facility] Address: [address] [place] [address] Performed By: #### 5 8410-2 ####[facility] LABORATORYCLIA [id number] [address] [place] MCH (RBC) [Entitic mass] 30.1 pg Normal 26.0-34.0 [facility] Comment on above: Order Comment: Speci men Type: BLOOD SPECIMENOrdering Facility: [facility] Address: [address] [address] Performed By: #### 5 8410-2 ####[facility] LABORATORYCLIA [id number] [address] MCHC (RBC) [Mass/Vol] 31.7 g/dL Normal 30.5-36.0 [facility] Comment on above: Order Comment: Speci men Type: BLOOD SPECIMENOrdering Facility: [facility] Address: [address] [place] [address] Performed By: #### 5 8410-2 ####[facility] LABORATORYCLIA [id number] [address] MCV (RBC) [Entitic vol] 95.0 fL Normal 80.0-100.0 [facility] Comment on above: Order Comment: Speci men Type: BLOOD SPECIMENOrdering Facility: [facility] Address: [address] [place] [address] Performed By: #### 5 8410-2 ####[facility] LABORATORYCLIA [id number] [address] Nucleated RBC (Bld) [#/Vol] 0.03 10*3/uL High <0.01 [facility] Comment on above: Order Comment: Speci men Type: BLOOD SPECIMENOrdering Facility: [facility] Address: [address] [place] [address] Performed By: #### 5 8410-2 ####[facility] LABORATORYCLIA [id number] [address] Platelet mean volume (Bld) [Entitic vol] 10.2 fL Normal 9.0-12.7 [facility] Comment on above: Order Comment: Speci men Type: BLOOD SPECIMENOrdering Facility: [facility] Address: [address] [place] [address] Performed By: #### 5 8410-2 ####[facility] LABORATORYCLIA [id number] [place] [address] [place] Platelets (Bld) [#/Vol] 234 10*3/uL Normal 150-400 [facility] Comment on above: Order Comment: Speci men Type: BLOOD SPECIMENOrdering Facility: [facility] Address: [address] [place] [address] Performed By: #### 5 8410-2 ####[facility] LABORATORYCLIA [id number] [place] [address] [place] [facility] [place] RBC (Bld) [#/Vol] 2.82 10*6/uL Low 3.90-5.20 [facility] Comment on above: Order Comment: Speci men Type: BLOOD SPECIMENOrdering Facility: [facility] Address: [address] [place] [address] Performed By: #### 5 8410-2 ####[facility] LABORATORYCLIA [id number] [address] WBC (Bld) [#/Vol] 8.77 10*3/uL Normal 3.70-11.00 [facility] Comment on above: Order Comment: Speci men Type: BLOOD SPECIMENOrdering Facility: [facility] Address: [address] [place] [address] Performed By: #### 5 8410-2 ####[facility] LABORATORYCLIA [id number] [address] CONSULT PROGon 06-18-2022 CONSULT PROG HNO ID: [id number] Author: Jessica Colmenares APRN.HAZARDOUS MATERIALS TANKER DRIVER Service: Cardiovascular Medicine Author Type: Nurse Practitioner Type: Consult Progress Note Filed: 06/18/2022 2:46 PM Note Text: The ECHO reviewed, EF 59%. No significant valvular abnormalities. Chart reviewed, no further recommendations. Thank you, Jessica Colmenares APRN.HAZARDOUS MATERIALS TANKER DRIVER Normal [facility] CONSULT PROG HNO ID: [id number] Author: Cirilo Yip [facility] Service: Pharmacy Author Type: Pharmacist Type: Consult [...] any questions or concerns. SIGNATURE: Cirilo Yip [facility] DATE/TIME: 06/18/2022 12:02 PM [facility] CONSULT PROG HNO ID: [id number] Author: Nimo Arzola MD Service: General Surgery [...] 0659 06/18/22 0700 - 06/19/22 0659 Shift 1403-8987 4725-8595 7871-5919 24 Hour Total 9376-9868 2884-4969 2794-8501 24 Hour Total INTAKE IV 350 15 365 Volume (mL) 15 15 Volume (mL) (lactated ringers iv infusion) 350 350 Shift Total 350 15 365 OUTPUT Urine 3826 803 4308 Void (ml) 1450 1450 Output ( External Collection Device 06/16/22 2331) 400 400 # of BMs Stool Incontinence 1 x 1 x Number of BMs 1 x 1 x Shift Total 1480 645 1556 Weight (kg) 71.2 71.2 71.2 71.2 71.2 [...] COPD (chronic obstructive pulmonary disease) ([facility]) 06/16/2022 Tobacco abuse 06/16/2022 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 Normal [facility] Lipid 1996 panelon 2 Cholesterol [Mass/Vol] 139 mg/dL Normal <200 [facility] Comment on above: Order Comment: Speci men Type: BLOOD SPECIMENOrdering Facility: [facility] Address: [address] [place] [phone] Result Comment: <200 mg/dL, Desirable 200-239 mg/dL, Borderline high >239 mg/dL, High Performed By: #### 2 4321-2, 89700-5, , 2776-07 ####[facility] LABORATORYCLIA [id number] [address] Cholesterol in HDL [Mass/Vol] 56 mg/dL Normal >39 [facility] Comment on above: Order Comment: Speci men Type: BLOOD SPECIMENOrdering Facility: [facility] Address: [address] [address] Result Comment: 40-5 9 mg/dL, Acceptable >59 mg/dL, High: Negative risk factor for coronary heart disease <40 mg/dL, Low: Positive risk factor for coronary heart disease Performed By: #### 2 4321-2, 58838-7, , 2776-07 ####[facility] [id number] [address] Cholesterol in LDL [Mass/Vol] 64 mg/dL Normal <100 [facility] Comment on above: Order Comment: Rhina [facility] Type: BLOOD SPECIMENOrdering Facility: [facility] Address: [address] [place] [address] Result Comment: <100 mg/dL, Optimal 100-129 mg/dL, Near optimal/above optimal 130-159 mg/dL, Borderline high 160-189 mg/dL, High >189 mg/dL, Very high Secondary prevention optimal LDL Cholesterol levels are recommended to be < 70 mg/dL Performed By: #### 2 4321-2, 48769-1, , 2776-07 ####[facility] LABORATORYCLIA [id number] [address] Cholesterol in LDL/Cholesterol in HDL [Mass ratio] 1.14 {ratio} Normal <2.54 [facility] Comment on above: Order Comment: Samiri isabella Type: BLOOD SPECIMENOrdering Facility: [facility] Address: [address] [address] Result Comment: Refe rence: 1. National Cholesterol Education Program ATP III Guideline At-A-Glance Quick Desk Reference: National Heart, Lung, and Blood [place]. National Institutes of Health. 2001: NIH Publication No. 01-3305. 2. An International Atherosclerosis Society position paper: global recommendations for the management of dyslipidemia: executive summary, Atherosclerosis. 2014: 232(2):410-413. Performed By: #### 2 4321-2, 06904-6, , 2776-07 ####[facility] LABORATORYCLIA [id number] [address] [place] Cholesterol in VLDL [Mass/Vol] 19 mg/dL Normal <30 [facility] Comment on above: Order Comment: Speci men Type: BLOOD SPECIMENOrdering Facility: [facility] Address: [address] [place] [address] Performed By: #### 2 1-2, 91499-1, , 2776-07 ####[facility] LABORATORYCLIA [id number] [address] [place] Cholesterol non HDL [Mass/Vol] 83 mg/dL Normal <130 [facility] Comment on above: Order Comment: Speci men Type: BLOOD SPECIMENOrdering Facility: [facility] Address: [address] [place] [address] Result Comment: <130 mg/dL, Optimal 130-159 mg/dL, Near optimal/above optimal 160-189 mg/dL, Borderline high 190-219 mg/dL, High >219 mg/dL, Very high Secondary prevention optimal non HDL Cholesterol levels are recommended to be <100 mg/dL Performed By: #### 2 1-2, 11528-3, , 2776-07 ####[facility] LABORATORYCLIA [id number] [address] [place] Cholesterol.total/Pastora sterol in HDL [Mass ratio] 2.48 {ratio} Normal <5.10 [facility] Comment on above: Order Comment: Speci men Type: BLOOD SPECIMENOrdering Facility: [facility] Address: [address] [place] [address] Performed By: #### 2 4321-2, 54435-3, , 2776-07 ####[facility] LABORATORYCLIA [id number] [address] [place] FASTING TIME 8 hrs Normal [facility] Comment on above: Order Comment: Speci men Type: BLOOD SPECIMENOrdering Facility: [facility] Address: [address] [place] [address] Performed By: #### 2 4321-2, 63647-9, , 2776-07 ####[facility] LABORATORYCLIA [id number] [place] [address] [place] Triglyceride [Mass/Vol] 93 mg/dL Normal <150 [facility] Comment on above: Order Comment: Speci men Type: BLOOD SPECIMENOrdering Facility: [facility] Address: [address] [place] [address] Result Comment: <150 mg/dL, Normal 150-199 mg/dL, Borderline high 200-499 mg/dL, High >499 mg/dL, Very high Performed By: #### 2 4321-2, 48612-4, , 2776-07 ####[facility] LABORATORYCLIA [id number] [place] [address] [place] Magnesium SerPl-mCncon 06-18 Magnesium [Mass/Vol] 2.1 mg/dL Normal 1.7-2.3 [facility] Comment on above: Order Comment: Speci men Type: BLOOD SPECIMENOrdering Facility: [facility] Address: [address] [place] [address] Performed By: #### 2 4321-2, 07815-7, , 2776-07 ####[facility] LABORATORYCLIA [id number] [place] [address] [place] Phosphate SerPl-mCncon 06-18 Phosphate [Mass/Vol] 3.3 mg/dL Normal 2.7-4.8 [facility] Comment on above: Order Comment: Speci men Type: BLOOD SPECIMENOrdering Facility: [facility] Address: [address] [place] [address] Performed By: #### 2 4321-2, 57816-8, 86109-9, 2777-1 ####[facility] LABORATORYCLIA [id number] [address] aPTT PPPon 06-18-2022 aPTT Coag (PPP) [Time] 37.2 s High 23.0-32.4 [facility] Comment on above: Order Comment: Speci men Type: BLOOD SPECIMENOrdering Facility: [facility] Address: [address] [place] [address] Performed By: #### 9 4500-6 #### [facility] CLIA [id number] [address] [place] [address] aPTT Coag (PPP) [Time] 58.8 s High 23.0-32.4 [facility] Comment on above: Order Comment: Speci men Type: BLOOD SPECIMENOrdering Facility: [facility] Address: [address] [place] [address] Performed By: #### 1 4979-9 ####[facility] LABORATORYCLIA [id number] [address] aPTT Coag (PPP) [Time] 127.7 s High 23.0-32.4 [facility] Comment on above: Order Comment: Speci men Type: BLOOD SPECIMEN [facility] Address: [address] [place] [address] Performed By: #### T SCR #### [facility] CLIA [id number] [address] [place] [address] ALLIED HEALTHon 06-17-2022 ALLIED HEALTH HNO ID: [id number] Author: RT [place](R) Service: Radiology Author Type: [...] RT [place](R) June 17, 2022 9:30 AM [facility] ALLIED HEALTH HNO ID: [id number] Author: Jeremías Bragg TAWNY Service: Infection Prevention [...] TIME: 8:27 AM PAGER/CONTACT #: Infection Prevention, [phone] Infection Prevention after hours/weekend pager: [phone] [facility] ANES POSTPROC EVALon 022 ANES POSTPROC EVAL HNO ID: [id number] Author: Larry Moss MD Service: Anesthesiology Author Type: Anesthesiologist Type: Anesthesia Postprocedure Evaluation Filed: 06/17/2022 6:51 AM Note Text: POST ANESTHESIA EVALUATION NOTE : 1940 Procedure Summary Date: 06/16/22 Room / Location: [place] 10 / [place] OR Anesthesia Start: [...] June 17, 2022 TIME: 6:50 AM CSN: [id number] Normal [facility] Basic metabolic 2000 panelon 06-17-2022 Anion gap [Moles/Vol] 9 mmol/L Normal 9-18 [facility] Comment on above: Order Comment: Speci men Type: BLOOD SPECIMENOrdering Facility: [facility] Address: [address] [place] [phone] Performed By: #### 2 4321-2, 19073-0, 2777-1 ####[facility] LABORATORYCLIA [id number] [place] [address] [place] Calcium [Mass/Vol] 7.9 mg/dL Low 8.5-10.2 [facility] Comment on above: Order Comment: Speci men Type: BLOOD SPECIMENOrdering Facility: [facility] Address: [address] [address] Performed By: #### 2 4321-2, , 2776-07 ####[facility] LABORATORYCLIA [id number] [place] [address] [place] Chloride [Moles/Vol] 107 mmol/L High 97-105 [facility] Comment on above: Order Comment: Speci men Type: BLOOD SPECIMENOrdering Facility: [facility] Address: [address] [place] [address] Performed By: #### 2 4321-2, , 2776-07 ####[facility] LABORATORYCLIA [id number] [place] [address] [place] CO2 [Moles/Vol] 21 mmol/L Low 22-30 [facility] Comment on above: Order Comment: Speci men Type: BLOOD SPECIMENOrdering Facility: [facility] Address: [address] [place] [address] Performed By: #### 2 4321-2, , 2776-07 ####[facility] LABORATORYCLIA [id number] [place] [address] [place] Creatinine [Mass/Vol] 0.99 mg/dL High 0.58-0.96 [facility] Comment on above: Order Comment: Speci men Type: BLOOD SPECIMENOrdering Facility: [facility] Address: [address] [place] [address] Performed By: #### 2 4321-2, , 2776-07 ####[facility] LABORATORYCLIA [id number] [address] [place] ESTIMATED GLOMERULAR FILTRATION RATE 57 mL/min/1.73m??? Low >=60 [facility] Comment on above: Order Comment: Speci men Type: BLOOD SPECIMENOrdering Facility: [facility] Address: [address] [place] [address] Result Comment: Isa mated Glomerular Filtration Rate [...] Performed By: #### 2 4321-2, , 2776-07 ####[facility] LABORATORYCLIA [id number] [place] [address] [place] Glucose [Mass/Vol] 84 mg/dL Normal 74-99 [facility] Comment on above: Order Comment: Rhina mason Type: BLOOD SPECIMENOrdering Facility: [facility] Address: [address] [place] [address] Result Comment: The [place] Diabetes Association (ADA) provides guidance for cutoff [...] Standards of Medical Care in Diabetes 2016, Australian Diabetes Association. Diabetes Care. 2016.39(Suppl 1). Performed By: #### 2 4321-2, , 2776-07 ####[facility] LABORATORYCLIA [id number] [place] [id number] [place] Potassium [Moles/Vol] 4.3 mmol/L Normal 3.7-5.1 [facility] Comment on above: Order Comment: Rhina mason Type: BLOOD SPECIMENOrdering Facility: [facility] Address: [address] [phone] Performed By: #### 2 4321-2, , 2776-07 ####[facility] LABORATORYCLIA [id number] [place] [address] [place] Sodium [Moles/Vol] 137 mmol/L Normal 136-144 [facility] Comment on above: Order Comment: Speci men Type: BLOOD SPECIMENOrdering Facility: [facility] Address: [address] [place] [address] Performed By: #### 2 4321-2, , 2776-07 ####[facility] LABORATORYCLIA [id number] [address] [place] Urea nitrogen [Mass/Vol] 27 mg/dL High 7-21 [facility] Comment on above: Order Comment: Speci men Type: BLOOD SPECIMENOrdering Facility: [facility] Address: [address] [place] [address] Performed By: #### 2 4321-2, , 2776-07 ####[facility] LABORATORYCLIA [id number] [address] CBC panel Auto (Bld)on 06-17 Erythrocyte distribution width (RBC) [Ratio] 15.5 % High 11.5-15.0 [facility] Comment on above: Order Comment: Speci men Type: BLOOD SPECIMENOrdering Facility: [facility] Address: [address] [place] [address] Performed By: #### 5 8410-2 ####[facility] LABORATORYCLIA [id number] [address] STATES OF [facility] Hematocrit (Bld) [Volume fraction] 26.6 % Low 36.0-46.0 [facility] Comment on above: Order Comment: Speci men Type: BLOOD SPECIMENOrdering Facility: [facility] Address: [address] [place] [address] Performed By: #### 5 8410-2 ####[facility] LABORATORYCLIA [id number] [address] Hemoglobin (Bld) [Mass/Vol] 8.5 g/dL Low 11.5-15.5 [facility] Comment on above: Order Comment: Speci men Type: BLOOD SPECIMENOrdering Facility: [facility] Address: [address] [address] Performed By: #### 5 8410-2 ####[facility] LABORATORYCLIA [id number] [address] MCH (RBC) [Entitic mass] 30.0 pg Normal 26.0-34.0 [facility] Comment on above: Order Comment: Speci men Type: BLOOD SPECIMENOrdering Facility: [facility] Address: [address] [address] Performed By: #### 5 8410-2 ####[facility] LABORATORYCLIA [id number] [address] MCHC (RBC) [Mass/Vol] 32.0 g/dL Normal 30.5-36.0 [facility] Comment on above: Order Comment: Speci men Type: BLOOD SPECIMENOrdering Facility: [facility] Address: [address] [place] [address] Performed By: #### 5 8410-2 ####[facility] LABORATORYCLIA [id number] [address] MCV (RBC) [Entitic vol] 94.0 fL Normal 80.0-100.0 [facility] Comment on above: Order Comment: Speci men Type: BLOOD SPECIMENOrdering Facility: [facility] Address: [address] [place] [address] Performed By: #### 5 8410-2 ####[facility] LABORATORYCLIA [id number] [address] Nucleated RBC (Bld) [#/Vol] 0.02 10*3/uL High <0.01 [facility] Comment on above: Order Comment: Speci men Type: BLOOD SPECIMENOrdering Facility: [facility] Address: [address] [place] [address] Performed By: #### 5 8410-2 ####[facility] LABORATORYCLIA [id number] [place] [address] [place] Platelet mean volume (Bld) [Entitic vol] 9.5 fL Normal 9.0-12.7 [facility] Comment on above: Order Comment: Speci men Type: BLOOD SPECIMENOrdering Facility: [facility] Address: [address] [place] [address] Performed By: #### 5 8410-2 ####[facility] LABORATORYCLIA [id number] [place] [address] [place] Platelets (Bld) [#/Vol] 223 10*3/uL Normal 150-400 [facility] Comment on above: Order Comment: Speci men Type: BLOOD SPECIMENOrdering Facility: [facility] Address: [address] [place] [address] Performed By: #### 5 8410-2 ####[facility] LABORATORYCLIA [id number] [address] [place] RBC (Bld) [#/Vol] 2.83 10*6/uL Low 3.90-5.20 [facility] Comment on above: Order Comment: Speci men Type: BLOOD SPECIMENOrdering Facility: [facility] Address: [address] [place] [address] Performed By: #### 5 8410-2 ####[facility] LABORATORYCLIA [id number] [address] [place] WBC (Bld) [#/Vol] 8.61 10*3/uL Normal 3.70-11.00 [facility] Comment on above: Order Comment: Speci men Type: BLOOD SPECIMENOrdering Facility: [facility] Address: [address] [place] [address] Performed By: #### 5 8410-2 ####[facility] LABORATORYCLIA [id number] [address] CONSULTon 06-17-2022 CONSULT HNO ID: [id number] Author: García Monique MD Service: Cardiovascular Medicine Author Type: Physician Type: Consults Filed: 06/17/2022 11:14 AM Note Text: [facility]IOVASCULAR INTENSIVE [facility]ARE UNIT ([facility]) History AND Physical Note PATIENT NAME: Mel Castillo DATE: June 17, 2022 ADMITTED FOR: Subjective HPI Ms. Mel Castillo is a 81 year old female with PMH: - Paroxysmal Afib - GERD - HTN - Hypothyroidism Patient presented to [facility] on 06/16/2022 for evaluation of left leg [...] her covid symptoms. States doesnot see a color checker roving or yarn and has no other past cardiac history [...] Procedure Component Value Units Date/Time Expedited COVID19 [[id number]] (Abnormal) Collected: 06/16/22826 Order Status: Completed Specimen: Nasal Swab from UPPER RESPIRATORY TRACT SWAB Updated: 06/16/221107 COVID 19 Result SARS-CoV-2 (Agent of COVID-19) Detected by RT-PCR or equivalent method. Comment: This test has been authorized by FDA under an Emergency Use Authorization (EUA). IMAGING: CT chest: No results found for: (more content not included)... Normal [facility] CONSULT PROGon 06-17-2022 CONSULT PROG HNO ID: [id number] Author: Dominique Lauren RPh Service: Pharmacy Author [...] Dominique Lauren RPh DATE/TIME: 06/17/2022 3:47 PM [facility] CONSULT PROG HNO ID: [id number] Author: Emanuel Hull MD Service: General Surgery [...] questions or concerns Mon-Fri 6a-5p please page [phone]. After 5pm and on Weekends and Holidays, please page [phone] if in ICU or [phone] if on RNF. Subjective SUBJECTIVE: Was able [...] 0659 06/17/22 0700 - 06/18/22 0659 Shift 6363-2335 8088-6193 6701-5730 24 Hour Total 6503-2713 2211-7542 5875-2228 24 Hour Total INTAKE IV 600 1000 [...] Estimated Blood loss 100 100 Shift Total 690 219 0766 Weight (kg) 72.6 71.2 71.2 71.2 71.2 [...] 06/16/2022 Assessme (more content not included)... Normal [facility] ECHOon 06-17-2022 Echocardiography Echocardiography Report: Transthoracic Echo [facility] Date of service: 06/17/2022 10:27:19 AM HOSPITAL Ordering physician: GARCÍA MONIQUE Indication: Nonsustained atrial fibrillation Technologist: Glendy Pena [facility] Interpreting physician: Nando Costa MD PATIENT: Name: [...] * * Final * * * CC [facility] Image : [id number] [id number] Normal [facility] Magnesium SerPl-mCncon 06-17 Magnesium [Mass/Vol] 2.1 mg/dL Normal 1.7-2.3 [facility] Comment on above: Order Comment: Speci men Type: BLOOD SPECIMENOrdering Facility: [facility] Address: [address] [place], [place] [address] Performed By: #### 2 4321-2, 67803-1, 2777-1 ####[facility] LABORATORYCLIA [id number] [place] [address] [facility] Phosphate SerPl-mCncon 06-17 Phosphate [Mass/Vol] 3.8 mg/dL Normal 2.7-4.8 [facility] Comment on above: Order Comment: Speci [facility] Type: BLOOD SPECIMENOrdering Facility: [facility] Address: [address] [place] [address] Performed By: #### 2 4321-2, 52569-9, 2777-1 ####[facility] LABORATORYCLIA [id number] [address] [place] XR CHEST 1V [...] Comparison: None. RESULT: Lines, tubes, and devices: painter drum leads. Hardware noted in the proximal right [...] in both lungs suspicious for multifocal pneumonia. 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 Transcribe Date/Time: Jun 17 2022 10:41A Dictated by : DI MINER MD This examination was interpreted and the report reviewed and electronically signed by: DI MINER MD on Jun 17 2022 10:43AM EST [id number] Normal [facility] aPTT PPPon 06-17-2022 aPTT Coag (PPP) [Time] 48.4 s High 23.0-32.4 [facility] Comment on above: Order Comment: Speci men Type: BLOOD SPECIMENOrdering Facility: [facility] Address: [address] [address] Performed By: #### 9 4500-6 #### [facility] CLIA [id number] [address] aPTT Coag (PPP) [Time] 29.4 s Normal 23.0-32.4 [facility] Comment on above: Order Comment: Speci men Type: BLOOD SPECIMENOrdering Facility: [facility] Address: [address] [place] [address] Performed By: #### 3 2355-0 #### [facility] CLIA [id number] [address] aPTT Coag (PPP) [Time] 125.1 s High 23.0-32.4 [facility] Comment on above: Order Comment: Speci men Type: BLOOD SPECIMEN [facility] Address: [address] [place] [address] Performed By: #### T SCR #### [facility] CLIA [id number] [address] aPTT Coag (PPP) [Time] s High 23.0-32.4 [facility] Comment on above: Order Comment: Speci men Type: BLOOD SPECIMENOrdering Facility: [facility] Address: [address] [place] [address] Performed By: #### 3 2355-0 #### [facility] CLIA [id number] [address] [place] [address] [place] aPTT Coag (PPP) [Time] 28.5 s Normal 23.0-32.4 [facility] Comment on above: Order Comment: Speci men Type: BLOOD SPECIMENOrdering Facility: [facility] Address: [place] [address] Performed By: #### 1 4979-9 ####[facility] LABORATORYCLIA [id number] [address] OF [facility] ANES PRE-OPon 06-16-2022 ANES PRE-OP HNO ID: [id number] Author: Olu Winn MD Service: Anesthesiology Author Type: Physician Type: Anesthesia Preprocedure Evaluation Filed: 06/16/2022 5:41 PM Note Text: ANESTHESIOLOGY DAY OF SURGERY NOTE : 1940 Procedure Information Date/Time: 06/16/221539 Procedure: TRANSCATHETER THERAPY VENOUS INFUSION FOR THROMBOLYSIS W/RADIOLOGICAL SUPERVISION/INTERPRETAT ION INITIAL TREATMENT DAY, venogram (Left: Leg lower ) Location: [place] [facility] / [place] Surgeons: Frida Rodriguez MD Estimated body [...] and consent discussed: yes. Patient / Responsible Libertarian agrees to proceed: yes Patient / Surrogate [...] June 16, 2022 TIME: 3:44 PM CSN: [id number] [facility] BRIEF OP NOTon 06-16-2022 BRIEF OP NOT HNO ID: [id number] Author: Emanuel Hull MD Service: General Surgery Author Type: Resident Type: Brief Op Note Filed: 06/16/2022 7:23 PM Note Text: Attestation signed by Frida Rodriguez MD at 06/19/2022 2:07 PM Attending Note I personally saw and examined the patient 06/16/22. I reviewed the resident's note. I agree with the resident's assessment and plan unless otherwise noted. Signature: Frida Rodriguez MD Date: 06/19/2022 Time: 2:07 PM BRIEF OPERATIVE / PROCEDURE NOTE LOG ID: [id number] Surgery/Procedure Date: 06/16/2022 Incision/Procedure Start Time: 5:01 PM Incision Close/Procedure End Time: 6:58 PM Surgeon(s)/Proceduralis t(s) and Picker Machine Operator(s): Surgeon(s) and Role: * Frida Rodriguez [...] and on weekends, please page surgery on-call [phone] (RNF) or [phone] (ICU) SIGNATURE: Emanuel Hull MD PATIENT NAME: Mel Castillo DATE: June 16, 2022 TIME: 7:19 PM PAGER/CONTACT #: [phone] Normal [facility] CBC W Auto Differential pane l (Bld)on 06-16-2022 Anisocytosis Ql (Bld) Present Normal [facility] Comment on above: Order Comment: Speci men Type: BLOOD SPECIMENOrdering Facility: [facility] Address: [address] [place] [address] Performed By: #### 5 7021-8 ####[facility] LABORATORYCLIA [id number] [address] [facility] Basophils (Bld) [#/Vol] 0.00 10*3/uL Normal <0.11 [facility] Comment on above: Order Comment: Speci men Type: BLOOD SPECIMENOrdering Facility: [facility] Address: [address] [place] [address] Performed By: #### 5 7021-8 ####[facility] LABORATORYCLIA [id number] [address] [place] Basophils/100 WBC (Bld) 0.0 % Normal [facility] Comment on above: Order Comment: Speci men Type: BLOOD SPECIMENOrdering Facility: [facility] Address: [address] [place] [address] Performed By: #### 5 7021-8 ####[facility] LABORATORYCLIA [id number] [address] [place] Differential cell count method Nom (Bld) Manual Normal [facility] Comment on above: Order Comment: Speci men Type: BLOOD SPECIMENOrdering Facility: [facility] Address: [address] [place] [address] Performed By: #### 5 7021-8 ####[facility] LABORATORYCLIA [id number] [place] [address] [place] Eosinophils (Bld) [#/Vol] 0.00 10*3/uL Normal <0.46 [facility] Comment on above: Order Comment: Speci men Type: BLOOD SPECIMENOrdering Facility: [facility] Address: [address] [place] [address] Performed By: #### 5 7021-8 ####[facility] LABORATORYCLIA [id number] [address] [place] Eosinophils/100 WBC (Bld) 0.0 % Normal [facility] Comment on above: Order Comment: Speci men Type: BLOOD SPECIMENOrdering Facility: [facility] Address: [address] [place] [address] Performed By: #### 5 7021-8 ####[facility] LABORATORYCLIA [id number] [address] [place] Erythrocyte distribution width (RBC) [Ratio] 15.6 % High 11.5-15.0 [facility] Comment on above: Order Comment: Speci men Type: BLOOD SPECIMENOrdering Facility: [facility] Address: [address] [place] [address] Performed By: #### 5 7021-8 ####[facility] LABORATORYCLIA [id number] [address] [place] Hematocrit (Bld) [Volume fraction] 35.3 % Low 36.0-46.0 [facility] Comment on above: Order Comment: Speci men Type: BLOOD SPECIMENOrdering Facility: [facility] Address: [address] [place] [address] Performed By: #### 5 7021-8 ####[facility] LABORATORYCLIA [id number] [address] [place] Hemoglobin (Bld) [Mass/Vol] 11.4 g/dL Low 11.5-15.5 [facility] Comment on above: Order Comment: Speci men Type: BLOOD SPECIMENOrdering Facility: [facility] Address: [address] [place] [address] Performed By: #### 5 7021-8 ####[facility] LABORATORYCLIA [id number] [address] [place] Lymphocytes (Bld) [#/Vol] 1.27 10*3/uL Normal 1.00-4.00 [facility] Comment on above: Order Comment: Speci men Type: BLOOD SPECIMENOrdering Facility: [facility] Address: [address] [place] [address] Performed By: #### 5 7021-8 ####[facility] LABORATORYCLIA [id number] [address] Lymphocytes/100 WBC (Bld) 8.0 % Normal [facility] Comment on above: Order Comment: Speci men Type: BLOOD SPECIMENOrdering Facility: [facility] Address: [address] [place] [address] Performed By: #### 5 7021-8 ####[facility] LABORATORYCLIA [id number] [address] [place] MCH (RBC) [Entitic mass] 30.2 pg Normal 26.0-34.0 [facility] Comment on above: Order Comment: Speci men Type: BLOOD SPECIMENOrdering Facility: [facility] Address: [address] [place] [address] Performed By: #### 5 7021-8 ####[facility] LABORATORYCLIA [id number] [address] MCHC (RBC) [Mass/Vol] 32.3 g/dL Normal 30.5-36.0 [facility] Comment on above: Order Comment: Speci men Type: BLOOD SPECIMENOrdering Facility: [facility] Address: [address] [place] [address] Performed By: #### 5 7021-8 ####[facility] LABORATORYCLIA [id number] [address] [place] MCV (RBC) [Entitic vol] 93.6 fL Normal 80.0-100.0 [facility] Comment on above: Order Comment: Speci men Type: BLOOD SPECIMENOrdering Facility: [facility] Address: [address] [place] [address] Performed By: #### 5 7021-8 ####[facility]ORATORYCLIA [id number] [place] [address] [place] Monocytes (Bld) [#/Vol] 1.74 10*3/uL High <0.87 [facility] Comment on above: Order Comment: Speci men Type: BLOOD SPECIMENOrdering Facility: [facility] Address: [address] [address] Performed By: #### 5 7021-8 ####[facility]ORATORYCLIA [id number] [address] [place] Monocytes/100 WBC (Bld) 11.0 % Normal [facility] Comment on above: Order Comment: Speci men Type: BLOOD SPECIMENOrdering Facility: [facility] Address: [address] [place] [address] Performed By: #### 5 7021-8 ####[facility]ATORYCLIA [id number] [address] [place] MYELO% 4.0 % Normal [facility] Comment on above: Order Comment: Speci men Type: BLOOD SPECIMENOrdering Facility: [facility] Address: [address] [place] [address] Performed By: #### 5 7021-8 ####[facility]ATORYCLIA [id number] [address] [place] Neutrophils (Bld) [#/Vol] 12.02 10*3/uL High 1.45-7.50 [facility] Comment on above: Order Comment: Speci men Type: BLOOD SPECIMENOrdering Facility: [facility] Address: [address] [place] [address] Performed By: #### 5 7021-8 ####[facility]ATORYCLIA [id number] [address] Neutrophils/100 WBC (Bld) 76.0 % Normal [facility] Comment on above: Order Comment: Speci men Type: BLOOD SPECIMENOrdering Facility: [facility] Address: [address] [place], [place] [address] Performed By: #### 5 7021-8 ####[facility] LABORATORYCLIA [id number] [address] [place] Nucleated RBC (Bld) [#/Vol] 10*3/uL Normal <0.01 [facility] Comment on above: Order Comment: Speci men Type: BLOOD SPECIMENOrdering Facility: [facility] Address: [address] [place] [address] Performed By: #### 5 7021-8 ####[facility] LABORATORYCLIA [id number] [address] [place] Nucleated RBC/100 WBC (Bld) [Ratio] 0.0 /100 WBC Normal [facility] Comment on above: Order Comment: Speci men Type: BLOOD SPECIMENOrdering Facility: [facility] Address: [address] [place] [address] Performed By: #### 5 7021-8 ####[facility] LABORATORYCLIA [id number] [place] [address] [place] Platelet mean volume (Bld) [Entitic vol] 9.7 fL Normal 9.0-12.7 [facility] Comment on above: Order Comment: Speci men Type: BLOOD SPECIMENOrdering Facility: [facility] Address: [address] [place] [address] Performed By: #### 5 7021-8 ####[facility] LABORATORYCLIA [id number] [place] [address] [place] Platelets (Bld) [#/Vol] 373 10*3/uL Normal 150-400 [facility] Comment on above: Order Comment: Speci men Type: BLOOD SPECIMENOrdering Facility: [facility] Address: [address] [place] [address] Performed By: #### 5 7021-8 ####[facility] LABORATORYCLIA [id number] [place] [address] [place] Platelets Estimate (Bld) [#/Vol] Adequate Normal [facility] Comment on above: Order Comment: Speci men Type: BLOOD SPECIMENOrdering Facility: [facility] Address: [address] [place] [address] Performed By: #### 5 7021-8 ####[facility]ATORYCLIA [id number] [address] [facility] PROMYL% 1.0 % Normal [facility] Comment on above: Order Comment: Speci men Type: BLOOD SPECIMENOrdering Facility: [facility] Address: [address] [place] [address] Performed By: #### 5 7021-8 ####[facility] LABORATORYCLIA [id number] [address] RBC (Bld) [#/Vol] 3.77 10*6/uL Low 3.90-5.20 [facility] Comment on above: Order Comment: Speci men Type: BLOOD SPECIMENOrdering Facility: [facility] Address: [address] [place] [address] Performed By: #### 5 7021-8 ####[facility] LABORATORYCLIA [id number] [address] RED CELL MORPH Normal Normal [facility] Comment on above: Order Comment: Speci men Type: BLOOD SPECIMENOrdering Facility: [facility] Address: [address] [place] [address] Performed By: #### 5 7021-8 ####[facility]ATORYCLIA [id number] [address] SPHEROCYTES Few Normal [facility] Comment on above: Order Comment: Speci men Type: BLOOD SPECIMENOrdering Facility: [facility] Address: [address] [place] [address] Performed By: #### 5 7021-8 ####[facility]ORATORYCLIA [id number] [address] [place] WBC (Bld) [#/Vol] 15.82 10*3/uL High 3.70-11.00 [facility] Comment on above: Order Comment: Speci men Type: BLOOD SPECIMENOrdering Facility: [facility] Address: [address] [place] [address] Result Comment: Resu lts checked and verified. Performed By: #### 5 7021-8 ####[facility] LABORATORYCLIA [id number] [address] CBC panel Auto (Bld)on 06-16 Erythrocyte distribution width (RBC) [Ratio] 15.5 % High 11.5-15.0 [facility] Comment on above: Order Comment: Speci men Type: BLOOD SPECIMENOrdering Facility: [facility] Address: [address] [place] [address] Performed By: #### 5 8410-2 ####[facility] LABORATORYCLIA [id number] [address] STATES OF [facility] Hematocrit (Bld) [Volume fraction] 30.1 % Low 36.0-46.0 [facility] Comment on above: Order Comment: Speci men Type: BLOOD SPECIMENOrdering Facility: [facility] Address: [address] [place] [address] Performed By: #### 5 8410-2 ####[facility] LABORATORYCLIA [id number] [address] Hemoglobin (Bld) [Mass/Vol] 9.8 g/dL Low 11.5-15.5 [facility] Comment on above: Order Comment: Speci men Type: BLOOD SPECIMENOrdering Facility: [facility] Address: [address] [place] [address] Performed By: #### 5 8410-2 ####[facility] LABORATORYCLIA [id number] [address] MCH (RBC) [Entitic mass] 30.8 pg Normal 26.0-34.0 [facility] Comment on above: Order Comment: Speci men Type: BLOOD SPECIMENOrdering Facility: [facility] Address: [address] [place] [address] Performed By: #### 5 8410-2 ####[facility] LABORATORYCLIA [id number] [address] [place] MCHC (RBC) [Mass/Vol] 32.6 g/dL Normal 30.5-36.0 [facility] Comment on above: Order Comment: Speci men Type: BLOOD SPECIMENOrdering Facility: [facility] Address: [address] [place] [address] Performed By: #### 5 8410-2 ####[facility] LABORATORYCLIA [id number] [address] [place] MCV (RBC) [Entitic vol] 94.7 fL Normal 80.0-100.0 [facility] Comment on above: Order Comment: Speci men Type: BLOOD SPECIMENOrdering Facility: [facility] Address: [address] [place] [address] Performed By: #### 5 8410-2 ####[facility] LABORATORYCLIA [id number] [address] [facility] Nucleated RBC (Bld) [#/Vol] 0.08 10*3/uL High <0.01 [facility] Comment on above: Order Comment: Speci men Type: BLOOD SPECIMENOrdering Facility: [facility] Address: [address] [place] [address] Performed By: #### 5 8410-2 ####[facility] LABORATORYCLIA [id number] [address] [place] Platelet mean volume (Bld) [Entitic vol] 9.6 fL Normal 9.0-12.7 [facility] Comment on above: Order Comment: Speci men Type: BLOOD SPECIMENOrdering Facility: [facility] Address: [address] [place] [address] Performed By: #### 5 8410-2 ####[facility] LABORATORYCLIA [id number] [address] [place] Platelets (Bld) [#/Vol] 277 10*3/uL Normal 150-400 [facility] Comment on above: Order Comment: Speci men Type: BLOOD SPECIMENOrdering Facility: [facility] Address: [address] [address] Performed By: #### 5 8410-2 ####[facility] LABORATORYCLIA [id number] [address] RBC (Bld) [#/Vol] 3.18 10*6/uL Low 3.90-5.20 [facility] Comment on above: Order Comment: Speci men Type: BLOOD SPECIMENOrdering Facility: [facility] Address: [address] [place] [address] Performed By: #### 5 8410-2 ####[facility] LABORATORYCLIA [id number] [address] WBC (Bld) [#/Vol] 10.43 10*3/uL Normal 3.70-11.00 [facility] Comment on above: Order Comment: Speci men Type: BLOOD SPECIMENOrdering Facility: [facility] Address: [address] [place] [address] Performed By: #### 5 8410-2 ####[facility] LABORATORYCLIA [id number] [address] CONSULTon 06-16-2022 CONSULT HNO ID: [id number] Author: Iman Saldana DO Service: General Surgery [...] or co (more content not included)... Normal [facility] CTA ABD/PEL/LOWER EXT W IVCO Non 06-16-2022 CTA ABD/PEL/LOWER EXT W IVCON * * *Final Report* * * DATE OF EXAM: Jun 16 2022 7:33AM [facility] 0122 - CTA ABD/PEL/LOWER EXT W IVCON [...] lobe consolidation may represent pneumonia or atelectasis. 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 Transcribe Date/Time: Jun 16 2022 7:54A Dictated by : ESTHER MCKEON MD This examination was interpreted and the report reviewed and electronically signed by: ESTHER MCKEON MD on Jun 16 2022 8:22AM EST [id number] Normal [facility] Comprehensive metabolic 2000 panelon 06-16-2022 Albumin [Mass/Vol] 3.2 g/dL Low 3.9-4.9 [facility] Comment on above: Order Comment: Speci men Type: BLOOD SPECIMENOrdering Facility: [facility] Address: [address] [address] Performed By: #### 3 3959-8, 84987-9, 79947-9, 44663-2 ####[facility] LABORATORYCLIA [id number] [address] [place] ALP [Catalytic activity/Vol] 111 U/L Normal 34-123 [facility] Comment on above: Order Comment: Speci men Type: BLOOD SPECIMENOrdering Facility: [facility] Address: [address] [address] Performed By: #### 3 3959-8, 77556-0, 41822-9, 77866-9 ####[facility] LABORATORYCLIA [id number] [place] [address] [place] ALT With P-5'-P [Catalytic activity/Vol] 20 U/L Normal 7-38 [facility] Comment on above: Order Comment: Speci men Type: BLOOD SPECIMENOrdering Facility: [facility] Address: [address] [place] [address] Performed By: #### 3 3959-8, 06412-9, 43408-5, 26755-3 ####[facility] LABORATORYCLIA [id number] [address] Anion gap [Moles/Vol] 17 mmol/L Normal 9-18 [facility] Comment on above: Order Comment: Speci men Type: BLOOD SPECIMENOrdering Facility: [facility] Address: [address] [place] [address] Performed By: #### 3 3959-8, 32697-5, 54231-2, 84328-4 ####[facility] LABORATORYCLIA [id number] [address] AST With P-5'-P [Catalytic activity/Vol] 13 U/L Normal 13-35 [facility] Comment on above: Order Comment: Speci men Type: BLOOD SPECIMENOrdering Facility: [facility] Address: [address] [place] [address] Performed By: #### 3 3959-8, 49741-1, 52039-4, 96770-7 ####[facility] LABORATORYCLIA [id number] [address] STATES OF [facility] Bilirubin [Mass/Vol] 0.3 mg/dL Normal 0.2-1.3 [facility] Comment on above: Order Comment: Speci men Type: BLOOD SPECIMENOrdering Facility: [facility] Address: [address] [place] [address] Performed By: #### 3 3959-8, 01618-2, 86735-5, 08973-3 ####[facility] LABORATORYCLIA [id number] [place] [address] [place] [facility] Calcium [Mass/Vol] 9.1 mg/dL Normal 8.5-10.2 [facility] Comment on above: Order Comment: Speci men Type: BLOOD SPECIMENOrdering Facility: [facility] Address: [address] [place] [address] Performed By: #### 3 3959-8, 29047-6, 67787-3, 45010-6 ####[facility] LABORATORYCLIA [id number] [place] [address] [place] Chloride [Moles/Vol] 104 mmol/L Normal 97-105 [facility] Comment on above: Order Comment: Speci men Type: BLOOD SPECIMENOrdering Facility: [facility] Address: [address] [place] [address] Performed By: #### 3 3959-8, 03149-3, 44350-9, 24450-1 ####[facility] LABORATORYCLIA [id number] [place] [address] [place] CO2 [Moles/Vol] 18 mmol/L Low 22-30 [facility] Comment on above: Order Comment: Speci men Type: BLOOD SPECIMENOrdering Facility: [facility] Address: [address] [place] [address] Performed By: #### 3 3959-8, 84824-2, 06277-8, 90926-9 ####[facility] LABORATORYCLIA [id number] [place] [address] [place] Creatinine [Mass/Vol] 1.14 mg/dL High 0.58-0.96 [facility] Comment on above: Order Comment: Speci men Type: BLOOD SPECIMENOrdering Facility: [facility] Address: [address] [place] [address] Performed By: #### 3 3959-8, 79863-5, 94864-3, 47784-7 ####[facility] LABORATORYCLIA [id number] [address] [place] ESTIMATED GLOMERULAR FILTRATION RATE 48 mL/min/1.73m??? Low >=60 [facility] Comment on above: Order Comment: Speci men Type: BLOOD SPECIMENOrdering Facility: [facility] Address: [address] [id number] Result Comment: Isa mated Glomerular Filtration Rate [...] actual GFR. Performed By: #### 3 3959-8, 47427-8, 94664-4, 63205-9 ####[facility]ENTERIA [id number] [place] [address] [place] Glucose [Mass/Vol] 122 mg/dL High 74-99 [facility] Comment on above: Order Comment: Rhina mason Type: BLOOD SPECIMENOrdering Facility: [facility] Address: [address] [place] [address] Result Comment: The [place] Diabetes Association (ADA) provides guidance for cutoff [...] Standards of Medical Care in Diabetes 2016, [place] Diabetes Association. Diabetes Care. 2016.39(Suppl 1). Performed By: #### 3 3959-8, 47301-0, 10743-5, 79790-4 ####[facility] LABORATORYCLIA [id number] [place] [address] [place] Potassium [Moles/Vol] 4.4 mmol/L Normal 3.7-5.1 [facility] Comment on above: Order Comment: Rhina mason Type: BLOOD SPECIMENOrdering Facility: [facility] Address: [address] [id number] Performed By: #### 3 3959-8, 39892-8, 28438-2, 84368-3 ####[facility] LABORATORYCLIA [id number] [address] [place] Protein [Mass/Vol] 6.6 g/dL Normal 6.3-8.0 [facility] Comment on above: Order Comment: Speci men Type: BLOOD SPECIMENOrdering Facility: [facility] Address: [address] [place] [address] Performed By: #### 3 3959-8, 63059-1, 57132-6, 70850-3 ####[facility] LABORATORYCLIA [id number] [address] STATES [place] [facility] Sodium [Moles/Vol] 139 mmol/L Normal 136-144 [facility] Comment on above: Order Comment: Speci men Type: BLOOD SPECIMENOrdering Facility: [facility] Address: [address] [place] [address] Performed By: #### 3 3959-8, 35445-7, 51862-5, 90375-7 ####[facility] LABORATORYCLIA [id number] [address] [place] Urea nitrogen [Mass/Vol] 35 mg/dL High 7-21 [facility] Comment on above: Order Comment: Speci men Type: BLOOD SPECIMENOrdering Facility: [facility] Address: [address] [place] [address] Performed By: #### 3 3959-8, 85295-7, 78495-1, 50026-7 ####[facility] LABORATORYCLIA [id number] [address] [id number] [place] ED NOTEon 06-16-2022 ED NOTE HNO ID: [id number] Author: Adela Cortez RN Service: Emergency Medicine Author Type: Registered Nurse Type: ED Notes Filed: 06/16/2022 11:27 AM Note Text: Pts aptt is >139. Nongram states to hold dose and let MD know. Vascular resident made aware, ordered to hold dose x1 hour and then redraw aptt. [facility] ED NOTE HNO ID: [id number] Author: Nancy Scott RN Service: Emergency Medicine Author Type: Registered Nurse Type: ED Notes Filed: 06/16/2022 7:13 AM Note Text: CT notified that pt has been moved to new room and is ready for testing [facility] ED NOTE HNO ID: [id number] Author: Marleen Blank RN Service: ? Author Type: Registered Nurse Type: ED Notes Filed: 06/16/2022 6:59 AM Note Text: Bed: 19-ED Expected date: Expected time: Means of arrival: Comments: [facility] ED NOTE HNO ID: [id number] Author: Nancy Scott RN Service: Emergency Medicine Author Type: Registered Nurse Type: ED Notes Filed: 06/16/2022 6:44 AM Note Text: CT delayed due to pt needing to move rooms because of bed bugs. [facility] ED NOTE HNO ID: [id number] Author: Nancy Scott RN Service: Emergency Medicine Author Type: Registered Nurse Type: ED Notes Filed: 06/16/2022 3:09 AM Note Text: CT form faxed, ptt sent [facility] ED NOTE HNO ID: [id number] Author: Nancy Scott RN Service: Emergency Medicine Author Type: Registered Nurse Type: ED Notes Filed: 06/16/2022 3:02 AM Note Text: US notified [facility] ED NOTE HNO ID: [id number] Author: Nancy Scott RN Service: Emergency Medicine Author Type: Registered Nurse Type: ED Notes Filed: 06/16/2022 2:48 AM Note Text: CT notified [facility] ED NOTE HNO ID: [id number] Author: Nancy Scott RN Service: Emergency Medicine Author Type: Registered Nurse Type: ED Notes Filed: 06/16/2022 2:43 AM Note Text: Labs sent [facility] ED NOTE HNO ID: [id number] Author: Davian Chen RN Service: ? Author Type: Registered Nurse Type: ED Notes Filed: 06/16/2022 2:06 AM Note Text: Bed: 15-ED Expected date: Expected time: Means of arrival: Comments: ramesh Barrett [facility] ED PROV NOTEon 06-16-2022 ED PROV NOTE HNO ID: [id number] Author: Vanessa Trevizo DO Service: Emergency Medicine [...] Abnormal; Notable (more content not included)... Normal [facility] ED PROV NOTE HNO ID: [id number] Author: Vanessa Trevizo DO Service: Emergency Medicine [...] diagnosis. Vanessa Trevizo DO 06/16/22 0323 Normal [facility] EKGon 06-16-2022 Electrocardiogram Ventricular Rate : 1 13 BPM Atrial Rate : 122 BPM QRS Duration : 100 ms Q-T Interval : 282 ms QTC Calculation(Bazett) : 386 ms Calculated R Butler : 46 degrees Calculated T Butler : -40 degrees ATRIAL FIBRILLATION WITH RAPID VENTRICULAR RESPONSE ABNORMAL QRS-T ANGLE, CONSIDER PRIMARY T WAVE ABNORMALITY ABNORMAL ECG NO PREVIOUS ECGS AVAILABLE Confirmed by MD LEONE CAROL ([id number]) on 06/16/2022 6:43:12 PM NAME : MEL GUADARRAMA PID : [id number] : 1940 Gender : Female Race : ORD : Procedure Date : Jun 16 2022 07:37:07 Edit Date : Jun 16 2022 18:43:17 Diagnosis: ATRIAL FIBRILLATION WITH RAPID VENTRICULAR RESPONSE ABNORMAL QRS-T ANGLE, CONSIDER PRIMARY T WAVE ABNORMALITY ABNORMAL ECG NO PREVIOUS ECGS AVAILABLE Confirmed by MD LEONE CAROL ([id number]) on 06/16/2022 6:43:12 PM Test Reason : Location : 4 : [place] [address] Overread By : MD LEONE CAROL Edited By : MD LEONE CAROL Referred By : , Acquired by : PATRICIA MOE [facility] HIGH SENSITIVITY TROPONIN T (INITIAL)on 06-16-2022 HIGH SENSITIVITY CHRISTOPHER 34 ng/L High <12 [facility] Comment on above: Order Comment: Rhina mason Type: BLOOD SPECIMENOrdering Facility: [facility] Address: [address] [place] [address] Result Comment: When assessing risk for acute [...] MACE. Performed By: #### 3 2355-0 #### [facility] CLIA [id number] STATES OF [facility] HIGH SENSITIVITY TROPONIN T (SECOND)on 06-16-2022 HIGH SENSITIVITY CHRISTOPHER 28 ng/L High <12 [facility] Comment on above: Order Comment: Rhina mason Type: BLOOD SPECIMENOrdering Facility: [facility] Address: [address] [place] [address] Result Comment: When assessing risk for acute [...] 30 day MACE. Performed By: #### L [id number] ####[facility]ORY[facility]IA [id number] [address] HIGH SENSITIVITY TROPONIN T (THIRD) 3 HRS AFTER INITIALon 06-16-2022 HIGH SENSITIVITY CHRISTOPHER 23 ng/L High <12 [facility] Comment on above: Order Comment: Speci men Type: BLOOD SPECIMENOrdering Facility: [facility] Address: [address] [place] [address] Result Comment: When assessing risk for acute [...] 30 day MACE. Performed By: #### L [id number] ####[facility]ORYCLIA [id number] [address] HISTORY PHYSICALon HISTORY PHYSICAL HNO ID: [id number] Author: Kristen Jones APRN.CNP Service: Hospital Medicine Author Type: Nurse Practitioner Type: HANDP Filed: 06/16/2022 1:27 PM Note Text: DEPARTMENT OF HOSPITAL MEDICINE HISTORY AND PHYSICAL EXAM SERVICE DATE: 06/16/2022 SERVICE TIME: 12:02 PM Primary Care Physician: Dr. Evans Admitting Provider: Kristen Jones APRN.CNP NIGHT AND WEEKEND COVERAGE: After 7pm, please call cross cover pager #[phone] Subjective CHIEF COMPLAINT: Left leg pain, discoloration [...] this patient has 2 charts. Mel Garcia [id number] and Mel Castillo [id number]. 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 Normal [facility] Magnesium SerPl-mCncon 06-16 Magnesium [Mass/Vol] 2.4 mg/dL High 1.7-2.3 [facility] Comment on above: Order Comment: Speci men Type: BLOOD SPECIMENOrdering Facility: [facility] Address: [address] [place] [address] [place] [address] Performed By: #### 3 9239-8, 34659-1, 77955-3, 96962-8 ####[facility]ATORYCLIA [id number] [address] NT-proBNP [facility] 06-16 Natriuretic peptide.B prohormone N-Terminal [Mass/Vol] 4156 pg/mL High <450 [facility] Comment on above: Order Comment: Rhina mason Type: BLOOD SPECIMEN [facility] Address: [address] [place] [address] Performed By: #### T SCR #### [facility] CLIA [id number] [address] OF [facility] NURSING PROGon 06-16-2022 NURSING PROG HNO ID: [id number] Author: Kayden José RN Service: Trauma Author [...] TO THE RECEIVING NURSE. NIKKY FRAGA. Normal [facility] PT panel Coag (PPP)on 2021 INR Coag (PPP) [Relative time] 1.1 {INR} Normal 0.9-1.3 [facility] Comment on above: Order Comment: Rhina mason Type: BLOOD SPECIMENOrdering Facility: [facility] Address: [address] [place], [place] [id number] Result Comment: Mayra min K Antagonist (VKA) Therapeutic Range: INR 2 to 3 (Target INR of 2.5) Note: For patients treated with VKA drugs, such as warfarin, the [employer] 2012 Guideline recommends [...] Chest 2012, 141:7S-47S Daren RA, et al. [facility] 2017, 70: 252-289 Performed By: #### 3 4528-0, 93225-2 ####[facility]ORYCLIA [id number] [address] OF [facility] PT Coag (PPP) [Time] 11.3 s Normal 9.7-13.0 [facility] Comment on above: Order Comment: Specrobson mason Type: BLOOD SPECIMENOrdering Facility: [facility] Address: [address] [place] [address] Performed By: #### 3 4528-0, 35076-6 ####[facility]ATORYCLIA [id number] [address] [facility] 08-16-2021 Procalcitonin [Mass/Vol] 0.19 ng/mL High <0.09 [facility] Comment on above: Order Comment: Rhina [facility] Type: BLOOD SPECIMEN [facility] Address: [address] [place] [address] Result Comment: For a guided interpretation of test results, please visit the Change in Procalcitonin Calculator, [email or web address]. Performed By: #### T SCR #### [facility] CLIA [id number] [address] SARS-CoV-2 RNA Resp Ql OXANA+p robeon 06-16-2022 SARS-CoV-2 (COVID-19) RNA OXANA+probe Ql (Resp) COVID 19 RESULT: SARS-CoV-2 (Agent of COVID-19) Detected by RT-PCR or equivalent method. This test has been authorized by FDA under an Emergency Use Authorization (EUA). Normal [facility] Comment on above: Performed By: #### 9 4500-6 #### [facility] CLIA [id number] 1 [place] [id number] [place] US DVT LOWER LTon 06-16-2022 US DVT [...] Torres MD on 0516 via verbal communication. 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 Transcribe Date/Time: Jun 16 2022 5:07A Dictated by : SKIP NOEL MD This examination was interpreted and the report reviewed and electronically signed by: SKIP NOEL MD on Jun 16 2022 5:17AM EST [id number] Normal [facility] aPTT PPPon 06-16-2022 aPTT Coag (PPP) [Time] 74.2 s High 23.0-32.4 [facility] Comment on above: Order Comment: Speci men Type: BLOOD SPECIMENOrdering Facility: [facility] Address: [address] [place] [address] Performed By: #### 1 4979-9 ####[facility]ORYCLIA [id number] [address] aPTT Coag (PPP) [Time] 134.7 s High 23.0-32.4 [facility] Comment on above: Order Comment: Speci men Type: BLOOD SPECIMENOrdering Facility: [facility] Address: [address] [place] [address] Performed By: #### 1 4979-9 ####[facility]ORYCLIA [id number] [address] aPTT Coag (PPP) [Time] s High 23.0-32.4 [facility] Comment on above: Order Comment: Speci men Type: BLOOD SPECIMENOrdering Facility: [facility] Address: [address] [place] [address] Performed By: #### 1 4979-9 ####[facility]ORYCLIA [id number] [address] aPTT Coag (PPP) [Time] 21.7 s Low 23.0-32.4 [facility] Comment on above: Order Comment: Speci men Type: BLOOD SPECIMENOrdering Facility: [facility] Address: [address] [place] [address] Performed By: #### 3 4528-0, 39343-3 ####[facility]ATORYCLIA [id number] [place] [address] CULTURE AND STAIN - TISSUEon 03-10-2020 CULTURE AND STAIN - TISSUE 1 Organism Staphylococcus aureus Rare 1 Organism Antibiotic Result Intrp Nafcillin/Oxacillin(AGATA ) = 0.5 S Inducible Clindamycin Resistant(AGATA)Neg Neg Clindamycin(AGATA) = 0.25 S Vancomycin(AGATA) <= 0.5 S Trimeth/Sulfa(AGATA) <= 10 S Linezolid(AGATA) = 2 S Daptomycin(AGATA) = 0.25 S Gentamicin(AGATA) <= 0.5 S Doxycycline(GAATA) <= 0.5 S Tigecycline(AGATA) <= 0.12 S Rifampin(AGATA) <= 0.5 S Normal [facility] Comment on above: Performed By: #### C XTIS #### [address] [id number] #### C/DAMIÁN #### [address] CR Finger(s) Min 2 Views Rig hton 03-07-2020 CR Finger(s) Min 2 Views Right Patient Name: MEL POP Diagnostic Radiology Exam Date/Time 03/06/2020 10:30:00 EDT Exam CR Finger(s) Min 2 Views Right Ordering Physician GUSTAVOMD JOHN DEREK J Accession Number [id number] CPT4 Codes [id number] () Reason For Exam pain Report Right [...] was communicated to JAYLA MCMAHAN via the [employer] Critical Result system on 03/07/2020 8:07 PM EDT, Message ID [id number]. Report Dictated on Final Dictating Physician: MD PERRY DIANE Signed Date and Time: 03/07/2020 8:07 pm Signed by: MD PERRY DIANE Transcribed Date and Time: 03/07/2020 8:08 Normal [facility] CULTURE ANAEROBEon 0 CULTURE ANAEROBE CULTURE ANAEROBE --> Status: F No growth of anaerobes at 5 days. STAIN GRAM --> Status: F Few polymorphonuclear cells/lpf. No organisms seen. No organisms seen. Normal [facility] Comment on above: Performed By: #### C XTIS #### [address] [id number] [id number] #### C/DAMIÁN #### [address] Vital Signs Date Time Vital Sign Value Performing Clinician Facility 12-24-2024 14:45-0400 Body mass index (BMI) [Ratio] 27.1 kg/m2 Kristyn Blankenship MD Work Phone: [facility] 12-24-2024 14:45-0400 Body weight 69.4 kg Kristyn Blankenship MD Work Phone: [facility] 12-05-2024 10:20-0400 Body height 160 cm Kristyn Blankenship MD Work Phone: [facility] 12-05-2024 10:20-0400 Body mass index (BMI) [Ratio] 29.23 kg/m2 Kristyn Blankenship MD Work Phone: [facility] 12-05-2024 10:20-0400 Body weight 74.84 kg Kristyn Blankenship MD Work Phone: [facility] 12-05-2024 10:20-0400 Diastolic blood pressure 78 mm[Hg] Kristyn Blankenship MD Work Phone: [facility] 12-05-2024 10:20-0400 Heart rate 78 /min Kristyn Blankenship MD Work Phone: [facility] 12-05-2024 10:20-0400 Respiratory rate 18 /min Kristyn Blankenship MD Work Phone: [facility] 12-05-2024 10:20-0400 SaO2% (BldA) [Mass fraction] 94 % Kristyn Blankenship MD Work Phone: [facility] 12-05-2024 10:20-0400 Systolic blood pressure 102 mm[Hg] Kristyn Blankenship MD Work Phone: [facility] 11-22-2024 13:45-0400 Diastolic blood pressure 54 mm[Hg] Kristyn Blankenship MD Work Phone: [facility] 11-22-2024 13:45-0400 Heart rate 58 /min Kristyn Blankenship MD Work Phone: [facility] 11-22-2024 13:45-0400 Respiratory rate 18 /min Kristyn Blankenship MD Work Phone: [facility] 11-22-2024 13:45-0400 SaO2% (BldA) [Mass fraction] 95 % Kristyn Blankenship MD Work Phone: [facility] 11-22-2024 13:45-0400 Systolic blood pressure 139 mm[Hg] Kristyn Blankenship MD Work Phone: [facility] 11-22-2024 13:15-0400 Body temperature 97.11 [degF] Kristyn Blankenship MD Work Phone: [facility] 11-22-2024 08:25-0400 Body height 160 cm Kristyn Blankenship MD Work Phone: [facility] 11-22-2024 08:25-0400 Body mass index (BMI) [Ratio] 29.23 kg/m2 Kristyn Blankenship MD Work Phone: [facility] 11-22-2024 08:25-0400 Body weight 74.84 kg Kristyn Blankenship MD Work Phone: [facility] 11-05-2024 15:42-0400 Body height 160 cm Kristyn Blankenship MD Work Phone: [facility] 11-05-2024 15:42-0400 Body mass index (BMI) [Ratio] 29.23 kg/m2 Kristyn Blankenship MD Work Phone: [facility] 11-05-2024 15:42-0400 Body weight 74.84 kg Kristyn Blankenship MD Work Phone: [facility] 11-05-2024 15:42-0400 Diastolic blood pressure 64 mm[Hg] Kristyn Blankenship MD Work Phone: [facility] 11-05-2024 15:42-0400 Heart rate 65 /min Kristyn Blankenship MD Work Phone: [facility] 11-05-2024 15:42-0400 Respiratory rate 18 /min Kristyn Blankenship MD Work Phone: [facility] 11-05-2024 15:42-0400 SaO2% (BldA) [Mass fraction] 98 % Kristyn Blankenship MD Work Phone: [facility] 11-05-2024 15:42-0400 Systolic blood pressure 122 mm[Hg] Kristyn Blankenship MD Work Phone: [facility] 08-22-2024 10:32-0500 Body height 160 cm Henok Darlyn PA-C Work Phone: [facility] 08-22-2024 10:32-0500 Body mass index (BMI) [Ratio] 29.23 kg/m2 Henok Walkeron PA-C Work Phone: [facility] 08-22-2024 10:32-0500 Body weight 74.84 kg Henok Walkeron PA-C Work Phone: [facility] 08-22-2024 10:32-0500 Diastolic blood pressure 62 mm[Hg] Henok Walkeron PA-C Work Phone: [facility] 08-22-2024 10:32-0500 Respiratory rate 18 /min Henok Walkeron PA-C Work Phone: [facility] 08-22-2024 10:32-0500 Systolic blood pressure 104 mm[Hg] Henok Walkeron PA-C Work Phone: [facility] 08-16-2024 07:19-0500 Body temperature 97.59 [degF] Mariana King DO Work Phone: [facility] 08-16-2024 07:19-0500 Diastolic blood pressure 66 mm[Hg] Mariana King DO Work Phone: [facility] 08-16-2024 07:19-0500 Heart rate 85 /min Mariana King DO Work Phone: [facility] 08-16-2024 07:19-0500 Respiratory rate 18 /min Mariana King DO Work Phone: [facility] 08-16-2024 07:19-0500 SaO2% (BldA) [Mass fraction] 94 % Mariana King DO Work Phone: [facility] 08-16-2024 07:19-0500 Systolic blood pressure 135 mm[Hg] Mariana King DO Work Phone: [facility] 08-03-2024 08:32-0500 Body height 162 cm Mariana King DO Work Phone: [facility] 08-03-2024 08:32-0500 Body mass index (BMI) [Ratio] 28.58 kg/m2 Mariana King DO Work Phone: [facility] 08-03-2024 08:32-0500 Body weight 75 kg Mariana King DO Work Phone: [facility] 07-07-2024 06:03-0500 Body temperature 97.7 [degF] Wm Aracelirakola DO Work Phone: [facility] 07-07-2024 06:03-0500 Diastolic blood pressure 67 mm[Hg] Wm Aracelirakola DO Work Phone: [facility] 07-07-2024 06:03-0500 Heart rate 69 /min Wm Aracelirakola DO Work Phone: [facility] 07-07-2024 06:03-0500 Respiratory rate 12 /min Wm Alexandrekola DO Work Phone: [facility] 07-07-2024 06:03-0500 SaO2% (BldA) [Mass fraction] 94 % Wm Aracelirakola DO Work Phone: [facility] 07-07-2024 06:03-0500 Systolic blood pressure 149 mm[Hg] Wm Aracelirakola DO Work Phone: [facility] 07-05-2024 10:00-0500 Body height 162.6 cm Wm Alexandrekola DO Work Phone: [facility] 07-05-2024 10:00-0500 Body mass index (BMI) [Ratio] 27.46 kg/m2 Wm Aracelirakola DO Work Phone: [facility] 07-05-2024 10:00-0500 Body weight 72.58 kg Wm Aracelirakola DO Work Phone: [facility] 05-14-2024 15:34-0400 Body height 162.6 cm Jared Evans MD Work Phone: [facility] 05-14-2024 15:34-0400 Body mass index (BMI) [Ratio] 25.23 kg/m2 Jared Evans MD Work Phone: [facility] 05-14-2024 15:34-0400 Body weight 66.68 kg Jared Evans MD Work Phone: [facility] 04-25-2024 13:39-0400 Body height 162.6 cm Henok Hernandez PA-C Work Phone: [facility] 04-25-2024 13:39-0400 Body mass index (BMI) [Ratio] 25.23 kg/m2 Henok Hernandez PA-C Work Phone: [facility] 04-25-2024 13:39-0400 Body weight 66.68 kg Henok Hernandez PA-C Work Phone: [facility] 04-25-2024 13:39-0400 Diastolic blood pressure 66 mm[Hg] Henok Hernandez PA-C Work Phone: [facility] 04-25-2024 13:39-0400 Heart rate 98 /min Henok Hernandez PA-C Work Phone: [facility] 04-25-2024 13:39-0400 Respiratory rate 18 /min Henok Hernandez PA-C Work Phone: [facility] 04-25-2024 13:39-0400 SaO2% (BldA) [Mass fraction] 95 % Henok Hernandez PA-C Work Phone: [facility] 04-25-2024 13:39-0400 Systolic blood pressure 110 mm[Hg] Henok Hernandez PA-C Work Phone: [facility] 04-13-2024 08:04-0400 Heart rate 92 /min Winifred Cornell DO Work Phone: [facility] 04-13-2024 07:49-0400 Body temperature 97.2 [degF] Winifred Huertasffey DO Work Phone: [facility] 04-13-2024 07:49-0400 Diastolic blood pressure 89 mm[Hg] Winifred Cornell DO Work Phone: [facility] 04-13-2024 07:49-0400 Respiratory rate 20 /min Winifred Cornell DO Work Phone: [facility] 04-13-2024 07:49-0400 SaO2% (BldA) [Mass fraction] 98 % Winifred Cornell DO Work Phone: [facility] 04-13-2024 07:49-0400 Systolic blood pressure 156 mm[Hg] Winifred Cornell DO Work Phone: [facility] 04-03-2024 17:52-0400 Body height 162.6 cm Winifred Cornell DO Work Phone: [facility] 04-03-2024 17:52-0400 Body mass index (BMI) [Ratio] 27.38 kg/m2 Winifred Cornell DO Work Phone: [facility] 04-03-2024 17:52-0400 Body weight 72.35 kg Winifred Cornell DO Work Phone: [facility] 07-27-2023 14:23-0500 Body height 162.6 cm Ming Weinberg MD Work Phone: [facility] 07-27-2023 14:23-0500 Body mass index (BMI) [Ratio] 27.29 kg/m2 Ming Weinberg MD Work Phone: [facility] 07-27-2023 14:23-0500 Body weight 72.12 kg Ming Weinberg MD Work Phone: [facility] 05-14-2022 15:01-0400 Diastolic blood pressure 84 mm[Hg] Jared Velazquez PA-C Work Phone: [facility] 05-14-2022 15:01-0400 Systolic blood pressure 154 mm[Hg] Jared ARIZMENDI-C Work Phone: [facility] 05-14-2022 14:32-0400 Body height 162.6 cm Jared Velazquez PA-C Work Phone: [facility] 05-14-2022 14:32-0400 Body weight 72.58 kg Jared Velazquez PA-C Work Phone: [facility] 05-14-2022 14:32-0400 Heart rate 71 /min Jared Velazquez PA-C Work Phone: [facility] 05-14-2022 14:32-0400 Respiratory rate 16 /min Jared Velazquez PA-C Work Phone: [facility] 05-14-2022 14:32-0400 SaO2% (BldA) [Mass fraction] 98 % Jared Velazquez PA-C Work Phone: [facility] 03-07-2020 09:57-0400 Body Temperature 98.71 [degF] Jayla [facility] [place] 03-07-2020 09:57-0400 BP Diastolic 64 mm[Hg] Jayla [facility] [place] , [place] 03-07-2020 09:57-0400 BP Systolic 161 mm[Hg] Jayla [facility] [place] , [place] 03-07-2020 09:57-0400 Pulse (Heart Rate) 77 /min Jayla [facility] [place] 03-07-2020 09:57-0400 Pulse Oximetry 96 % Jayla [facility] [place] , [place] 03-07-2020 08:32-0400 Respiratory Rate 14 /min [facility] [place] 02-08-2020 20:50-0400 Body Temperature 97.5 [degF] [facility] [place] 02-08-2020 20:50-0400 BP Diastolic 81 mm[Hg] Maryuri [facility] [place] , [place] 02-08-2020 20:50-0400 BP Systolic 193 mm[Hg] [facility] [place] [facility] [place] 02-08-2020 20:50-0400 Pulse (Heart Rate) 68 /min Maryuri [facility] [place] 02-08-2020 20:50-0400 Pulse Oximetry 97 % [facility] [place] , [place] 02-08-2020 20:50-0400 Respiratory Rate 16 /min Maryuri King [facility] [place] Encounters Encounter Date Encounter Type Care Provider Facility Start: 01-23-2025 ambulatory Megan EVERETT Faci lity:[facility] Start: 01-22-2025 ambulatory Megan EVERETT Faci lity:[facility] Start: 01-21-2025 ambulatory Megan EVERETT Faci lity:[facility] Start: 01-17-2025 ambulatory Megan EVERETT Faci lity:[facility] Start: 01-16-2025 ambulatory Megan EVERETT Faci lity:[facility] Start: 01-15-2025 ambulatory Megan EVERETT Faci lity:[facility] Start: 01-07-2025 ambulatory Megan EVERETT Faci lity:[facility] Start: 01-02-2025 End: 01-02-2025 Orders Only Namr[facility] Comment on above: 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) Right retinal detach ment (Primary Dx); Hemorrhagic choroidal detachment of right eye; Pseudophakia, right eye Start: 12-24-2024 End: 12-24-2024 ambulatory KRISTYN BLANKENSHIP [facility] Start: 12-24-2024 End: 12-24-2024 Office outpatient visit 15 minutes Kristyn Blankenship MD Work Phone: [facility] [place] Comment on above: Aftercare following surgery of the circulatory system (Primary Dx); PAD (peripheral artery disease) (HCC) Start: 12-13-2024 End: 12-13-2024 ambulatory MEGAN MONTOYA [facility] Start: 12-13-2024 End: 12-13-2024 Subsequent hospital visit by physician Kristyn Blankenship MD Work Phone: [facility] Comment on above: Skin ulcer of toe of right foot, limited to breakdown of skin (HCC); PAD (peripheral artery disease) (HCC); Aftercare following surgery of the circulatory system Start: 12-05-2024 End: 12-05-2024 ambulatory JARED EVANS [facility] Start: 12-05-2024 End: 12-05-2024 Office outpatient visit 10 minutes [facility]hip MD [facility] Comment on above: Skin ulcer of toe of right foot, limited to breakdown of skin (HCC) (Primary Dx); PAD (peripheral artery disease) (HCC); Aftercare following surgery of the circulatory system Start: 11-22-2024 End: 11-22-[address] 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 Start: 11-05-2024 End: 11-05-2024 Office outpatient visit 25 minutes Kristyn Blankenship MD Work Phone: [facility] [employer] Comment on above: PAD (peripheral aidee ry disease) (HCC) (Primary Dx); Skin ulcer of toe of right foot, limited to breakdown of skin (HCC) Start: 10-08-2024 End: 10-08-2024 ambulatory Megan EVERETT [facility] Work Phone: Start: 10-08-2024 End: 10-08-2024 Departed Referred Megan Montoya [facility] [employer] [facility] Start: 10-08-2024 Registered Referred Megan Montoya [facility] [employer] Start: 10-08-2024 End: 10-08-2024 ambulatory Megan EVERETT Facility:[facility] Start: 10-01-2024 End: 10-01-2024 Patient encounter procedure Savana Lopez MD Work Phone: Ophthalmology Comment on above: 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); Right retinal detachment; Postoperative eye state; Pseudophakia, right eye; Subluxation of right lens Start: 10-01-2024 End: 10-01-2024 ambulatory SAVANA LOPEZ Facility:[facility] Start: 09-17-2024 End: 09-17-2024 ambulatory Megan EVERETT [facility] Work Phone: Start: 09-17-2024 End: 09-17-2024 Departed Referred Megan Montoya [employer] Start: 09-17-2024 Registered Referred Megan Montoya [employer] Start: 09-17-2024 End: 09-17-2024 ambulatory Megan EVERETT Facility:[facility] Start: 09-10-2024 End: 09-10-2024 ambulatory Megan EVERETT [facility] Work Phone: Start: 09-10-2024 End: 09-10-2024 Departed Referred Megan Vegauary [employer] Start: 09-10-2024 Registered Referred Megna Montoya [employer] Start: 09-10-2024 End: 09-10-2024 ambulatory Megan EVERETT Facility:[facility] Start: 09-05-2024 End: 09-05-2024 ambulatory SAVANA LOPEZ Facility:[facility] Start: 09-05-2024 End: 09-05-2024 Patient encounter procedure Savana Lopez MD Work Phone: Ophthalmology Comment on above: Postoperative eye st ate; Hemorrhagic choroidal detachment of right eye; Pseudophakia, right eye; Subluxation of right lens Start: 09-03-2024 End: 09-03-2024 ambulatory Megan EVERETT [facility] Work Phone: Start: 09-03-2024 End: 09-03-2024 Departed Referred Megan BISWAS Start: 09-03-2024 Registered Referred Megan BISWAS Start: 09-03-2024 End: 09-03-2024 ambulatory Megan EVERETT Facility:[facility] Start: 08-22-2024 End: 08-22-[address] [facility] Start: 08-22-2024 End: 08-22-2024 Office outpatient visit 15 minutes Henok Santizo PA-C Work Phone: [facility] [place] Comment on above: Acute deep vein thro mbosis (DVT) of iliac vein of right lower extremity (HCC) (Primary Dx); PAD (peripheral artery disease) (HCC) Start: 08-20-2024 End: 08-20-2024 ambulatory Megan EVERETT [facility] Work Phone: Start: 08-20-2024 End: 08-20-2024 Departed Referred Megan BISWAS Start: 08-20-2024 End: 08-20-2024 ambulatory Megan EVERETT Facility:[facility] Start: 08-03-2024 End: 08-03-2024 Subsequent hospital visit by physician [facility] Exam Room 1 [facility] Comment on above: Arrived Start: 08-03-2024 End: 08-16-[address] [facility] Start: 08-03-2024 End: 08-16-2024 Emergency department patient visit Mariana King DO Work Phone: [facility] Comment on above: Aspiration pneumonit is (CMS/HCC) (HCC) (Primary Dx); Vomiting and diarrhea; LORENZA (acute kidney injury) (HCC) Start: 08-01-2024 End: 08-01-2024 ambulatory SAVANA LOPEZ Facility:[facility] Start: 08-01-2024 End: 08-01-2024 Patient encounter [...] Start: 07-27-2024 ambulatory SAVANA A MAMMO Facility: [facility] Start: 07-23-2024 End: 07-23-2024 ambulatory SAVANA A MAMMO Facility:[facility] Start: 07-23-2024 End: 07-23-2024 Patient encounter [...] 07-12-2024 Evaluation and management of inpatient SELF Facility:[facility] Start: 07-12-2024 End: 07-12-2024 Orders Only [...] 07-09-2024 Evaluation and management of inpatient SELF Facility:[facility] Start: 07-09-2024 End: 07-09-2024 Unlisted evaluation [...] Evaluation and management of inpatient RED HENDERSON Facility:[facility] Start: 07-07-2024 Emergency department patient visit PROVIDER NOT IN SYSTEM Facility:[facility] Start: 07-06-2024 End: 07-06-2024 Telephone encounter Ryan Elizondo MD Work Phone: Ophthalmology Start: 07-05-2024 End: 07-07-[address] [facility] Start: 07-05-2024 End: 07-07-2024 Emergency department patient visit Wm Des DO Work Phone: [facility] Trauma Neuro Progressive Care Unit PCU 3W Comment on above: Vision loss of right eye (Primary Dx); Acute intractable headache, unspecified headache type; Visual disturbance, subjective Start: 06-19-2024 End: 07-03-2024 ambulatory DEVIKA LEUNG Facility:[facility] Start: 06-19-2024 End: 07-03-2024 Subsequent hospital visit by physician Devika Leung DO Work Phone: [facility] Comment on above: [I63.9] - Cerebral i nfarction Start: 06-10-2024 End: 06-19-2024 Evaluation and management of inpatient TORSTEN Simran KEMPSHIRA Facility:[facility] Start: 05-22-2024 End: 05-22-[address] [facility] Start: 05-21-2024 End: 05-21-[address] [facility] Start: 05-21-2024 End: 05-21-2024 Anticoagulant drug monitoring Harmony Grey [facility] Work Phone: [facility] Anticoagulation Management Service Comment on above: Atrial fibrillation, unspecified type (HCC); Acute venous embolism and thrombosis of deep vessels of proximal end of right lower extremity (HCC) Start: 05-14-2024 End: 05-14-2024 Subsequent hospital visit by physician Jared Evans MD Work Phone: [facility] Non-Invasive Cardiology Comment on above: Paroxysmal atrial fi brillation (HCC) Start: 05-14-2024 End: 05-14-[address] [facility] Start: 05-09-2024 End: 05-09-2024 [facility] Start: 05-09-2024 End: 05-09-2024 Anticoagulant drug monitoring Patty Duggan [facility] Work Phone: [facility] Anticoagulation Management Service Comment on above: Atrial fibrillation, unspecified type ([facility]); Acute venous embolism and thrombosis of deep vessels of proximal end of right lower extremity ([facility]) Start: 05-01-2024 End: 05-01-2024 [facility] Start: 05-01-2024 End: 05-01-2024 Anticoagulant drug monitoring Won Tipton RN [facility] Anticoagulation Management Service Comment on above: Atrial fibrillation, unspecified type ([facility]); Acute venous embolism and thrombosis of deep vessels of proximal end of right lower extremity (HCC) Start: 04-27-2024 End: 04-27-2024 Refill Phyllis Aguilera RN Work Phone: [facility] Anticoagulation Management Service Comment on above: Deep vein thrombosis (DVT) of lower extremity, unspecified chronicity, unspecified laterality, unspecified vein (HCC); Atrial fibrillation, unspecified type (HCC); Acute venous embolism and thrombosis of deep vessels of proximal end of right lower extremity (HCC) Start: 04-25-2024 End: 04-25-2024 Office outpatient visit 15 minutes Henok Hernandez PA-C Work Phone: [facility] [place] Comment on above: Acute deep vein thro mbosis (DVT) of iliac vein of right lower extremity (HCC) (Primary Dx); PAD (peripheral artery disease) (HCC) Start: 04-25-2024 End: 04-25-2024 ambulatory HENOK SANTIZO [facility] Start: 04-23-2024 End: 04-23-[address] [facility] Start: 04-20-2024 End: 07-20-2024 Transcribe Orders Jared Evans MD Work Phone: [facility] Central Scheduling Comment on above: Paroxysmal atrial fi brillation (HCC) (Primary Dx) Start: 04-19-2024 End: 04-19-2024 ambulatory JARED EVANS [facility] Start: 04-19-2024 End: 04-19-2024 Anticoagulant drug monitoring Marybeth Rahman [facility] Anticoagulation Management Service Comment on above: Atrial fibrillation, unspecified type (HCC); Acute venous embolism and thrombosis of deep vessels of proximal end of right lower extremity (HCC) Start: 04-16-2024 End: 04-16-2024 ambulatory ANTHONY YEE [facility] Start: 04-14-2024 End: 04-14-2024 Anticoagulant drug monitoring Ulices Orr PharmD [facility] Pharmacy Comment on above: Deep vein thrombosis (DVT) of lower extremity, unspecified chronicity, unspecified laterality, unspecified vein (HCC) (Primary Dx) Start: 04-03-2024 End: 04-13-2024 Evaluation and management of inpatient Winifred Cornell DO Work Phone: [facility] Medical Unit 4N Comment on above: Ischemic leg (Primar y Dx); Right leg pain; Peripheral arterial disease (HCC); Right leg weakness; Atrial fibrillation, unspecified type (HCC) Start: 07-27-2023 End: 07-27-2023 Office outpatient new 30 minutes Ming Weinberg MD Work Phone: [facility] Comment on above: 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 MRI Comment on above: Abnormal findings on diagnostic imaging of other specified body structures; Pain in left leg Start: 06-01-2023 Transcribe Orders Jared Evans MD Work Phone: [facility] Central Scheduling Comment on above: Abnormal findings on diagnostic imaging of other specified body structures (Primary Dx); Pain in left leg Start: 05-24-2023 End: 05-24-2023 Subsequent hospital visit by physician Jared Evans MD Work Phone: [facility] [place] Comment on above: Other specified soft tissue disorders Start: 05-23-2023 Transcribe Orders Jared Evans MD Work Phone: [facility] Central Scheduling Comment on above: Other specified soft tissue disorders (Primary Dx) Start: 03-08-2023 End: 03-08-2023 Subsequent hospital visit by physician Jared Evans MD Work Phone: [facility] CT Comment on above: Localized swelling, mass and lump, neck Start: 02-28-2023 Transcribe Orders Jared Evans MD Work Phone: [facility] Central Scheduling Comment on above: Localized swelling, mass and lump, neck (Primary Dx) Start: 02-22-2023 End: 02-22-2023 Subsequent hospital visit by physician Jared Evans MD Work Phone: [facility] [place] Comment on above: Localized swelling, mass and lump, neck Start: 02-17-2023 Transcribe Orders Jared Evans MD Work Phone: [facility] Central Scheduling Comment on above: Localized swelling, mass and lump, neck (Primary Dx) Start: 07-06-2022 Telephone encounter Inés Tubbs RN NOC Comment on above: Follow Up Phone Call (All Clear) Start: 06-21-2022 End: 06-21-2022 Evaluation and management of inpatient SIM ELIZABETH Facility:[facility] Start: 06-19-2022 ambulatory [facility] [place] [facility] [address] CARD/HF/PD Start: 06-16-2022 End: 06-29-2022 Evaluation and management of inpatient BERNIE MANE Facility:[facility] Start: 05-27-2022 Telephone encounter Jared pennington [...] 02-08-2020 Emergency department patient visit Maryuri Fernando [facility] ED Comment on above: Felon of finger [...] 04-08-2024 Thromboplastin time partial plasma/whole blood Pratibha Doide Avelar DO Work Phone: Start: 04-08-2024 Basic metabolic pane l calcium total Robert Vigil MD Work Phone: Start: 04-07-2024 Thromboplastin time partial plasma/whole blood Pratibha Dodie Avelar DO Work Phone: Start: 04-07-2024 Basic metabolic pane l calcium total Robert Vigil MD Work Phone: Start: 04-06-2024 Thromboplastin time partial plasma/whole blood Pratibha Dodei Avelar DO Work Phone: Start: 04-06-2024 FL GUIDANCE OR USE O NLY - NON-RESULTABLE Kristyn Blankenship MD Work Phone: Start: 04-06-2024 Antibody screen JARED EVANS Comment on above: Performed By: #### L [id number] ####Gas Shovel Operator: VELMA VALADEZ ([phone])[facility] ([address] Start: 04-06-2024 Blood typing serologic abo [...] abdl aorta&bi il iofem w/contrast&postp Bernie Cutler GROOMING ASSISTANT - [employer] TANKER DRIVER Work Phone: Start: 04-03-2024 Ct head/brain w/o co ntrast material Bernie Cutler GROOMING ASSISTANT - [employer] TANKER DRIVER Work Phone: Start: 04-03-2024 Comprehensive metabo lic panel Bernie Cutler GROOMING ASSISTANT - [employer] TANKER DRIVER Work Phone: Start: 04-03-2024 Ecg routine ecg w/le ast 12 lds trcg only w/o i&r Bernie Cutler GROOMING ASSISTANT - [employer] TANKER DRIVER Work Phone: Start: 06-15-2023 Mri lower extrem oth /thn jt w/o & w/contr matr Jared Evans MD Work Phone: Start: 05-24-2023 Dup-scan xtr veins unilateral/limited study Jared Evans MD Work Phone: Start: 06-21-2022 Antibody screen BERNIE MANE Comment on above: Order Comment: Speci men Type: BLOOD SPECIMEN Ordering Facility: [facility] Address: [address] [place], [place] [id number] Performed By: #### T SCR #### [facility] CLIA [id number] [address] [facility] Start: 03-07-2020 OPERATIVE REPORT 3m Sca nning Start: 02-08-2020 INCISION AND DRAINAGE R mona Morgan Work Phone: Plan of Treatment Date Care Activity Detail Author Start: 02-15-2029 DTaP/Tdap/Td vaccine (2 - Td) DTaP/Tdap/Td vaccine (2 - Td) [place] Start: 02-15-2029 DTaP/Tdap/Td Vaccines (2 - Td or Tdap) DTaP/Tdap/Td Vaccines (2 - Td or Tdap) [facility] Start: 02-15-2029 Urine microalbumin profile DTaP,Tdap,Td Vaccine (2 - Td or Tdap) [facility] Start: 08-05-2027 Diabetes Screening Diabetes Screening [facility] Start: 07-07-2027 Diabetes Screening Diabetes Screening [facility] Start: 07-06-2027 Diabetes Screening Diabetes Screening [facility] Start: 06-21-2027 Diabetes Screening Diabetes Screening [facility] Start: 08-16-2025 End: 01-23-2026 OCT MACULA CIRRUS OD (RIGHT EYE) OCT MACULA CIRRUS OD (RIGHT EYE) [facility] Imaging Routine Postoperative eye state 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, right eye Subluxation of right lens Expected: 08/16/2025, Expires: 01/23/2026 [facility] Work Phone: Comment on above: Expected: 08/16/2025, Expires: Start: 08-05-2025 Diabetes: Estimated Glomerular Filtration Rate for Kidney Health Diabetes: Estimated Glomerular Filtration Rate for Kidney Health [facility] Start: 08-04-2025 Diabetes: Estimated Glomerular Filtration Rate for Kidney Health Diabetes: Estimated Glomerular Filtration Rate for Kidney Health [facility] Start: 07-31-2025 End: 01-07-2026 Right eye Photo documentation FUNDUS PHOTOS OD (RIGHT EYE) [facility] Imaging Routine Postoperative eye state 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, right eye Subluxation of right lens Expected: 07/31/2025, Expires: 01/07/2026 [facility] Work Phone: Comment on above: Expected: 07/31/2025, Expires: Start: 07-07-2025 Diabetes: Estimated Glomerular Filtration Rate for Kidney Health Diabetes: Estimated Glomerular Filtration Rate for Kidney Health [facility] Start: 06-24-2025 DIABETES SCREEN DIABETES SCREEN [facility] Start: 06-10-2025 Thyroid stimulating hormone measurement TSH Level [facility] Start: 05-18-2025 DIABETES SCREEN DIABETES SCREEN [facility] Start: 03-18-2025 Influenza vaccination Influenza Vaccine (Season Ended) [facility] Start: 01-02-2025 End: 01-02-2025 Patient encounter procedure 01/02/2025 9:45 AM EDT Office Visit [facility] Ophthalmology [address] [place] [address] Savana Lopez MD [address] [place] [address] *3 M, DFE Ophthalmology Comment on above: *3 M, DFE Start: 12-24-2024 End: 12-24-2024 Patient encounter procedure 12/24/2024 2:30 PM EDT Office Visit [facility] [place] [address] [facility] [address] [place] [phone] Kristyn Blankenship MD [address] [facility] [address] [place] [address] [facility] [place] Start: 12-05-2024 End: 12-05-2024 Patient encounter procedure 12/05/2024 10:00 AM EDT Office Visit [facility] [place] [address] [place] [phone] Kristyn Blankenship MD [address] [place] [phone] [facility] [place] Start: 11-22-2024 End: 11-22-2024 Admission to same day surgery center 11/22/2024 9:30 AM EDT - 11/22/2024 11:30 AM EDT Surgery [facility] MA[facility] OR [address] [place] [place] [address] Kristyn Blankenship MD [address] [place] [phone] AORTOILIAC ANGIOGRAPHY, RIGHT LOWER EXTREMITY ANGIOGRAPHY WITH RUNOFF, POSSIBLE SUPERFICIAL FEMORAL ARTERY/POPLITEAL/TIBIAL ANGIOPLASTY/STENTING [07099 (CPT )] [facility] MAIN OR Comment on above: AORTOILIAC ANGIOGRAPHY, RIGHT LOWER EXTR EMITY ANGIOGRAPHY WITH RUNOFF, POSSIBLE SUPERFICIAL FEMORAL ARTERY/POPLITEAL/TIBIAL ANGIOPLASTY/STENTING [41560 (CPT )] Start: 11-22-2024 End: 11-22-2024 Angiography extremity unilateral rs&i ANGIOGRAM, EXTREMITY Skin ulcer of right great toe (HCC) Critical limb ischemia of right lower extremity (HCC) 11/22/2024 9:30 AM EDT [facility] Operating Room Start: 11-22-2024 Subsequent hospital visit by physician 11/22/2024 9:30 AM EDT Hospital Encounter [facility] [address] [place] [place] [address] Kristyn Blankenship MD [address] [place] [phone] [facility] OR Start: 11-20-2024 Subsequent hospital visit by physician 11/20/2024 Hospital Encounter [facility] [address] [place] [place] [address] Kristyn Blankenship MD [address] [place] [phone] [facility] Start: 11-13-2024 End: 11-13-2025 Basic metabolic 1998 panel - Serum or Plasma Basic metabolic panel Lab Routine Pre-op evaluation Expected: 11/13/2024 (Approximate), Expires: 11/13/2025 [facility] Comment on above: Expected: 11/13/2024 (Approximate), Expi res: 11/13/2025 Start: 11-13-2024 End: 11-13-2025 CBC W Auto Differential panel - Blood CBC auto differential Lab Routine Pre-op evaluation Expected: 11/13/2024 (Approximate), Expires: 11/13/2025 [facility] Work Phone: Comment on above: Expected: 11/13/2024 (Approximate), Expi res: 11/13/2025 Start: 10-01-2024 End: 10-01-2024 Patient encounter procedure 10/01/2024 10:30 AM EDT Office Visit [facility] Op[facility]mology [address] [address] Savana Lopez MD [address] [place], [place] [phone] 26 Day F/U ~ DFE OD bscan OD . Ophthalmology Comment on above: 26 Day F/U ~ DFE OD bscan OD . Start: 08-22-2024 End: 08-22-2024 Patient encounter procedure 08/22/2024 10:30 AM EST Office Visit [facility] [place] [address] [place] [phone] Henok Santizo PA-C [address] [place] [address] [facility] [place] Start: 08-15-2024 End: 08-15-2024 Patient encounter procedure 08/15/2024 9:45 AM EST Office Visit [facility] Ophthalmology [address] [place] [address] Savana Lopez MD [address] [place], [place] [phone] *1 month post op Ophthalmology Comment on above: *1 month post op Start: 08-06-2024 End: 08-06-2024 Patient encounter procedure 08/06/2024 11:00 AM EST Office Visit [facility] [place] [address] [place] [phone] Henok Santizo PA-C [address] [place], [place] [phone] [facility] [place] Start: 08-01-2024 End: 08-01-2024 Patient encounter procedure Ophthalmology Comment on above: *1 week post op Start: 07-31-2024 End: 07-31-2024 Patient encounter procedure [facility] Start: 07-27-2024 End: 07-27-2024 Admission to same day surgery center 07/27/2024 10:50 AM EST - 07/27/2024 12:40 PM EST Surgery Ophthalmology [address] [address] Savana Lopez MD [address] [place] [address] VITRECTOMY 25G [facility] PARS PLANA APPROACH W/ REMOVAL OF PRERETINAL CELLULAR MEMBRANE Ophthalmology Comment on above: V[facility]OMY 25G [facility] PARS PLANA APPROACH W/ REMOVAL OF PRERETINAL CELLULAR MEMBRANE Start: 07-27-2024 End: 07-27-2024 Aspiration/release vitreous subretinal/choroidal RELEASE OF VITREOUS, CHOROIDAL FLUID, PARS PLANA APPROACH Hemorrhagic choroidal detachment of right eye 07/27/2024 10:50 AM EST [facility] Start: 07-27-2024 Subsequent hospital visit by physician 07/27/2024 10:50 AM EST Hospital Encounter Ophthalmology [address] [address] Savana Lopez MD [address] [place] [address] 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] Ophthalmology Comment on above: Hemorrhagic choroidal detachment of righ t eye [H31.411] Start: 07-27-2024 End: 07-27-2024 Vitrectomy pars plana remove preretinal membrane VITRECTOMY 25G [facility] PARS PLANA APPROACH W/ REMOVAL OF PRERETINAL CELLULAR MEMBRANE Hemorrhagic choroidal detachment of right eye 07/27/2024 10:50 AM EST [facility] Start: 07-23-2024 End: 07-23-2024 Patient encounter procedure 07/23/2024 10:45 AM EST Office Visit [facility] Ophthalmology [address] [address] Savana Lopez MD [address] [place] [address] *1 W, DFE OD/BSCAN OD/OPTOS OD Ophthalmology Comment on above: *1 W, DFE OD/BSCAN OD/OPTOS OD Start: 07-18-2024 Advance Directive Discussion Advance Directive Discussion [facility] Start: 07-18-2024 Medicare Advantage Annual Wellness Visit Medicare Advantage Annual Wellness Visit [facility] Start: 07-16-2024 End: 07-16-2024 Patient encounter procedure Ophthalmology Comment on above: Please schedule this patient with Dr. Jose Angel grey Tuesday07/16/24. Ok to over book per Dr. Lopez *NEW, HEMORRHAGIC CH OROIDALS/MONOCULAR, DFE OD/g SCAN OD ok per DM Start: 07-13-2024 End: 07-13-2024 Aspiration/release vitreous subretinal/choroidal ASPIRATION VITREOUS, CHOROIDAL FLUID, PARS PLANA APPROACH Hemorrhagic choroidal detachment of right eye 07/13/2024 2:04 PM EST [facility] Start: 07-13-2024 End: 07-13-2024 Evaluation and management of inpatient 07/13/2024 2:04 PM EST - 07/13/2024 3:24 PM EST Surgery Ophthalmology [address] [address] Savana Lopez MD [address] [place] [address] ASPIRATION VITREOUS, CHOROIDAL FLUID, PARS PLANA APPROACH Ophthalmology Comment on above: ASPIRATION VITREOUS, CHOROIDAL FLUID, PA RS PLANA APPROACH Start: 06-04-2024 End: 05-21-2025 POCT Prothrombin Time INR ([facility]) POCT Prothrombin Time INR ([facility]) Lab Routine Atrial fibrillation, unspecified type (HCC) Acute venous embolism and thrombosis of deep vessels of proximal end of right lower extremity (HCC) Expected: 06/04/2024, Expires: 05/21/2025 [facility] Work Phone: Comment on above: Expected: 06/04/2024, Expires: Start: 06-04-2024 End: 06-04-2024 Anticoagulant drug monitoring 06/04/2024 1:15 AM EST Anticoagulation - [facility] [address] [place] [address] [facility] Anticoagulation Management Service Start: 05-22-2024 End: 05-22-2024 Patient encounter procedure 05/22/2024 3:00 PM EST Office Visit [facility] [address] [facility] [address] [place] [phone] Hermila Padilla MD [address] [facility] [address] [place], [place] [phone] [facility] Start: 05-22-2024 End: 05-22-2024 Anticoagulant drug monitoring 05/22/2024 12:45 AM EST Anticoagulation - Warfarin Visit [facility] Anticoagulation Management Service [address] [facility] [address] [place] [phone] [facility] Anticoagulation Management Service Start: 05-14-2024 End: 05-14-2024 Patient encounter procedure 05/14/2024 2:00 PM EDT Appointment [facility] Non-Invasive Cardiology [address] [place] [phone] [facility] Non-Invasive Cardiology Start: 05-08-2024 End: 05-01-2025 POCT Prothrombin Time INR ([facility]) POCT Prothrombin Time INR ([facility]) Lab Routine Atrial fibrillation, unspecified type (HCC) Acute venous embolism and thrombosis of deep vessels of proximal end of right lower extremity (HCC) Expected: 05/08/2024 (Approximate), Expires: 05/01/2025 [employer] Work Phone: Comment on above: Expected: 05/08/2024 (Approximate), Expi res: 05/01/2025 Start: 05-08-2024 End: 05-08-2024 Anticoagulant drug monitoring 05/08/2024 1:30 AM EDT Anticoagulation - Other Visit [facility] [address] [phone] [facility] Start: 05-01-2024 End: 05-01-2024 Anticoagulant drug monitoring 05/01/2024 Anticoagulation - Warfarin Visit [facility] [address] [phone] [facility] Start: 04-23-2024 End: 04-19-2025 POCT Prothrombin Time INR ([facility]) POCT Prothrombin Time INR ([facility]) Lab Routine Atrial fibrillation, unspecified type (HCC) Acute venous embolism and thrombosis of deep vessels of proximal end of right lower extremity (HCC) Expected: 04/23/2024 (Approximate), Expires: 04/19/2025 [facility] Work Phone: Comment on above: Expected: 04/23/2024 (Approximate), Expi res: 04/19/2025 Start: 04-23-2024 End: 04-23-2024 Patient encounter procedure 04/23/2024 9:15 AM EDT Office Visit [facility] [place] [address] [facility] [address] [place] [phone] Henok Hernandez PA-C [address] [facility] [address] [place], [place] [phone] [facility] [place] Start: 04-23-2024 End: 04-23-2024 Anticoagulant drug monitoring 04/23/2024 1:15 AM EDT Anticoagulation - Warfarin Visit [facility] [address] [phone] [facility] Start: 04-19-2024 End: 04-19-2024 Anticoagulant drug monitoring 04/19/2024 1:00 AM EDT Anticoagulation - Warfarin Visit [facility] [address] [phone] [facility] Start: 04-16-2024 End: 04-16-2025 POCT Prothrombin Time INR ([facility]) POCT Prothrombin Time INR ([facility]) Lab Routine Deep vein thrombosis (DVT) of lower extremity, unspecified chronicity, unspecified laterality, unspecified vein (HCC) Expected: 04/16/2024, Expires: 04/16/2025 [facility] Work Phone: Comment on above: Expected: 04/16/2024, Expires: Start: 03-18-2024 Covid-19 Vaccine ( season) Covid-19 Vaccine ( season) [facility] Start: 03-18-2024 Influenza vaccination Influenza Vaccine (#1) [facility] Start: 07-18-2023 Advance Directive Discussion Advance Directive Discussion [facility] Start: 07-18-2023 Medicare Advantage Annual Wellness Visit Medicare Advantage Annual Wellness Visit [facility] Start: 03-18-2023 Influenza vaccination Influenza Vaccine (#1) [facility] Start: 03-18-2022 Influenza vaccination INFLUENZA (#1) [facility] Start: 07-18-2021 ADVANCE DIRECTIVE DISCUSSION ADVANCE DIRECTIVE DISCUSSION [facility] Start: 07-18-2021 DEPRESSION ASSESSMENT DEPRESSION ASSESSMENT [facility] Start: 03-18-2020 Influenza vaccination Flu vaccine (#[facility]) [facility] Start: 03-13-2020 End: 03-13-2020 Office Visit 03/13/2020 Office Visit Orthopedic Surgery Jayla Mcmahan MD [address] [facility] [address] [place] [address] [phone] [facility] Medical [facility] [place] Start: 03-07-2020 Hospital Encounter 03/07/2020 Hospital Encounter IP Unit Jayla Mcmahan MD [address] [facility] [address] [place] [address] [phone] Yo[facility] Serrato Dept Start: 03-06-2020 Annual Wellness Visit (AWV) Annual Wellness Visit (AWV) [place], [place] Start: 04-12-2019 Pneumococcal Vaccine: 50+ Years (2 of 2 - PPSV23) Pneumococcal Vaccine: 50+ Years (2 of 2 - PPSV23) [facility] Start: 04-12-2019 Pneumococcal Vaccine: 65+ Years (2 - PPSV23 if available, else PCV20) Pneumococcal Vaccine: 65+ Years (2 - PPSV23 if available, else PCV20) [facility] Start: 04-12-2019 Pneumococcal Vaccine: 65+ Years (2 - PPSV23 or PCV20) Pneumococcal Vaccine: 65+ Years (2 - PPSV23 or PCV20) [facility] Start: 04-12-2019 Pneumococcal Vaccine: 65+ Years (2 of 2 - PPSV23 or PCV20) Pneumococcal Vaccine: 65+ Years (2 of 2 - PPSV23 or PCV20) [facility] Start: 02-13-2016 DIABETES SCREEN DIABETES SCREEN [facility] Start: 09-24-2014 RSV Immunization for Adults (1 - 1-dose 75+ series) RSV Immunization for Adults (1 - 1-dose 75+ series) [facility] Start: 04-23-2010 DIABETES SCREEN DIABETES SCREEN [facility] Start: 09-24-2004 BONE DENSITY BONE DENSITY [facility] Start: 09-24-2004 Pneumococcal 65+ years Vaccine (2 of 2 - PPSV23) Pneumococcal 65+ years Vaccine (2 of 2 - PPSV23) [place] Start: 09-24-2004 PNEUMOCOCCAL: 65+ (1 - PCV) PNEUMOCOCCAL: 65+ (1 - PCV) [facility] Start: 09-24-2004 Screening for osteoporosis Bone Density Screening [facility] Start: 1999 RSV Immunization aged 60 or older (1 - 1-dose 60+ series) RSV Immunization aged 60 or older (1 - 1-dose 60+ series) [facility] Start: 09-24-1994 Screening for osteoporosis DEXA (modify frequency per FRAX score) [place] Start: 09-24-1989 Shingles Vaccine (1 of 2) Shingles Vaccine (1 of 2) [place] Start: 09-24-1989 SHINGRIX VACCINE (1 of 2) SHINGRIX VACCINE (1 of 2) [facility] Start: 09-24-1989 Zoster Vaccines (1 of 2) Zoster Vaccines (1 of 2) [facility] Start: 09-24-1958 Urine microalbumin profile DTAP,TDAP,TD (1 - Tdap) [facility] Start: 09-24-1958 Zoster Vaccines (1 of 2) Zoster Vaccines (1 of 2) [facility] Start: 09-24-1957 Anxiety Screening Anxiety Screening [facility] Start: 09-24-1957 Depression Screening Depression Screening [facility] Start: 09-24-1957 Diabetes: Urine Albumin-Creatinine Ratio for Kidney Health Diabetes: Urine Albumin-Creatinine Ratio for Kidney Health [facility] Start: 09-24-1957 SPIROMETRY SPIROMETRY [facility] Start: 1951 Depression Monitoring Depression Monitoring [facility] Start: 1951 Depresssion Monitoring Depresssion Monitoring [facility] Start: 09-24-1945 PNEUMOCOCCAL: 65+ (1 - PCV) PNEUMOCOCCAL: 65+ (1 - PCV) [facility] Start: 09-24-1944 COVID-19 Vaccine (#1) COVID-19 Vaccine (#1) [facility] Start: 03-27-1940 COVID-19 VACCINE (#1) COVID-19 VACCINE (#1) [facility] Start: 1939 Creatinine measurement Creatinine monitoring [facility] [place] Start: 1939 Lipid panel Lipid Panel [facility] Start: 1939 Medicare Advantage Annual Wellness Visit (AWV) Medicare Advantage Annual Wellness Visit (AWV) [facility] Start: 1939 Potassium monitoring Potassium monitoring [facility] [place], [place] Start: 1939 Screening for osteoporosis Bone Density Scan [facility] Start: 1939 Thyroid stimulating hormone measurement TSH Level [facility] Angiography extremit y unilateral rs&i AORTOGRAM, WITH SERIALOGRAPHY Critical limb ischemia of right lower extremity (HCC) [facility] Operating Room Aortography abdomina l serialography rs&i AORTOGRAM, WITH SERIALOGRAPHY Critical limb ischemia of right lower extremity (HCC) [facility] Operating Room BSCAN OD (RIGHT EYE) BSCAN OD (R IGHT EYE) OPHT Imaging Routine Hemorrhagic choroidal detachment of right eye 07/09/2024 9:09 AM EST [facility] Work Phone: End: 01-03-2026 BSCAN OD (RIGHT EYE) BSCAN OD (RIGHT EYE) OPHT Imaging Routine Hemorrhagic choroidal detachment of right eye Dislocation of intraocular lens, initial encounter 1 Occurrences starting 07/12/2024 until 01/03/2026 [facility] Work Phone: Comment on above: 1 Occurrences starting 07/12/2024 until 01/03/2026 End: 01-07-2026 BSCAN OD (RIGHT EYE) BSCAN OD (RIGHT EYE) OPHT Imaging Routine Postoperative eye state 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, right eye Subluxation of right lens 1 Occurrences starting 07/16/2024 until 01/07/2026 [facility] Comment on above: 1 Occurrences starting 07/16/2024 until 01/07/2026 End: 02-27-2026 BSCAN OD (RIGHT EYE) BSCAN OD (RIGHT EYE) [facility] Imaging Routine Postoperative eye state 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, right eye Subluxation of right lens 1 Occurrences starting 09/05/2024 until 02/27/2026 [facility] Work Phone: Comment on above: 1 Occurrences starting 09/05/2024 until 02/27/2026 Camera fundoscopy FUNDUS PHOTOS OU (BOTH EYES) [facility] Imaging Routine Hemorrhagic choroidal detachment of right eye 07/09/2024 8:35 AM EST [facility] End: 03-08-2023 CT Neck [facility] Work Phone: Comment on above: Once for 1 Occurrences starting 03/08/20 until 03/08/2023 Incision/Drainage Incision/Drain age Procedures Routine 02/08/2020 7:17 PM EDT [facility] OUTSIDE PROCEDURE SCAN OUTSIDE P ROCEDURE SCAN Procedures Ordered: 02/21/2023 [facility] Comment on above: Ordered: 02/21/2023 OUTSIDE PROCEDURE SCAN OUTSIDE P ROCEDURE SCAN Procedures Ordered: 03/07/2023 [facility] Comment on above: Ordered: 03/07/2023 OUTSIDE PROCEDURE SCAN OUTSIDE P ROCEDURE SCAN Procedures Ordered: 05/24/2023 [facility] Comment on above: Ordered: 05/24/2023 OUTSIDE PROCEDURE SCAN OUTSIDE P ROCEDURE SCAN Procedures Ordered: 06/14/2023 [facility] Comment on above: Ordered: 06/14/2023 Oxygen therapy [Minimum Data Set] Initiate Oxygen Therapy Protocol Respiratory Care Routine Daily until discontinued starting 03/07/2020 [facility] Comment on above: Daily until discontinued starting 2019 End: 02-22-2023 US Head and neck soft tissue [facility] Work Phone: Comment on above: Once for 1 Occurrences starting 02/23/20 until 02/22/2023 End: 03-06-2020 XR FINGER RIGHT (MIN 2 VIEWS) XR FINGER RIGHT (MIN 2 VIEWS) Imaging Routine Once for 1 Occurrences starting 03/06/2020 until 03/06/2020 [place] Comment on above: Once for 1 Occurrences starting 03/06/20 until 03/06/2020 XR FINGER RIGHT (MIN 2 VIEWS) XR FINGER RIGHT (MIN 2 VIEWS) Imaging Routine 03/06/2020 10:20 AM EDT [facility] Immunizations Immunization Date Immunization Notes Care Provider [facility] 05-19-2021 Influenza, High-dose Seasonal, Quadrivalent, Preservative Free Ming Weinberg MD Work Phone: [facility] 05-19-2021 influenza virus vaccine, unspecified formulation Jared Evans MD Work Phone: [facility] 02-15-2019 pneumococcal conjuga te vaccine, 13 valent Ming Weinberg MD Work Phone: [facility] 02-15-2019 tetanus toxoid, redu larissa diphtheria toxoid, and acellular pertussis vaccine, adsorbed Ming Weinberg MD Work Phone: [facility] 06-29-2013 influenza, high dose seasonal, preservative-free Ming Weinberg MD Work Phone: [facility] NEGATED: Highlighted row has not occurred!04-05-2024 Seasonal trivalent influenza vaccine, adjuvanted, preservative free Winifred Cornell DO Work Phone: [facility] Comment on above: Deferred: Patient Re fused Payers Date Payer Category Payer Self-pay 2023 Private Health Insurance HUMANA HUMANA MEDICARE SUPPLEMENT [id number] 2023-2023 [address] [address] [place] [address] Commercial [id number] 2017 Medicare [id number] 2017 Medicare (Managed Care) NADEGE ESCOBAR [id number] 2017 Medicare HMO HUMANA MEDICARE [id number] 2017 Medicare [id number] 1939 Unknown [id number] [id number]. 2.594 Unknown [id number] Unknown [id number] Unknown [id number] [id number]. 2.462 Unknown [id number] 2.16.840.1.115741.3.579. 2.462 Unknown [id number] 2.16.840.1.880558.3.579. 2.462 Unknown [id number] 2.16.840.1.116848.3.579. 2.462 Unknown [id number] 2.16.840.1.281155.3.579. 2.462 Unknown [id number] 2.16.840.1.913735.3.579. 2.462 Unknown [id number] 2.16.840.1.967905.3.579. 2.462 Unknown [id number] 2.16.840.1.641670.3.579. 2.462 Unknown [id number] 2.16.840.1.998477.3.579. 2.462 Unknown [id number] 2.16.840.1.194044.3.579. 2.462 Unknown [id number] 2.16.840.1.681781.3.579. 2.462 Unknown [id number] 2.16.840.1.514919.3.579. 2.462 Unknown [id number] 2.16.840.1.672327.3.579. 2.462 Unknown [id number] 2.16.840.1.426819.3.579. 2.462 Unknown [id number]. 2.462 Social History Date Type Detail Facility Start: 02-08-2020 Tobacco smoking stat [email or web address] Current some day smoker [place], [place] Start: 02-08-2020 End: 04-20-2024 Alcohol intake Current drinker of alcohol (finding) [place] Start: 02-08-2020 End: 05-17-2022 Alcohol Comment occ [place], [place] Start: 1940 Sex Assigned At Not on file M [place] Start: 05-04-2022 End: 03-08-2023 Exposure to SARS-CoV-2 (event) Not sure [facility] [place] Start: 03-06-2020 End: 07-16-2024 Tobacco smoking status NHIS Former smoker [facility] Start: 03-06-2020 End: 07-16-2024 Tobacco use and exposure Never used [facility] [employer] Tobacco smoking stat us OHIS Tobacco smoking consumption unknown [facility] Start: 05-17-2022 End: 04-04-2024 Tobacco smoking status NHIS Smokes tobacco daily [facility] History of tobacco use Cigarette Smoker [facility] Start: 05-17-2022 End: 06-11-2024 Cigarettes smoked current (pack per day) - Reported 0.5 [facility] Start: 05-18-2022 History SDOH Financial 5 [facility] Start: 05-18-2022 History SDOH Food Worry 1 [facility] Start: 05-18-2022 History SDOH Transpo rt Med 2 [facility] Start: 07-05-2022 End: 01-02-2025 Alcohol intake Ex-drinker (finding) [facility] History of tobacco use Current smoker [facility] Start: 07-27-2023 End: 06-11-2024 Gender identity Not on file [facility] How often do you nee d to have someone help you when you read instructions, pamphlets, or other written material from your doctor or pharmacy [SILS] Never [facility] Has the [place] [employer], tapviva, or Soapbox threatened to shut off services in your home in past 12Mo No [facility] Are you now , , , , never or living with a partner? [facility] How often to you hav e a drink containing alcohol? Monthly or less [facility] How often do you hav e 6 or more drinks on 1 occasion? Never [facility] How hard is it for y ou to pay for the very basics like food, housing, medical care, and heating Not very hard [facility] Do you feel stress - tense, restless, nervous, or anxious, or unable to sleep at night because your mind is troubled all the time - these days [OSQ] Not at all [facility] (I/We) worried wheth er (my/our) food would run out before (I/we) got money to buy more. Never true [facility] Start: 02-15-2022 End: 10-25-2024 Sex Female (finding) [facility] Start: 1940 Sex assigned at Female S [facility] Start: 08-03-2024 Gender identity Identifies as female gender (finding) [facility] Start: 08-03-2024 Sexual orientation Heterosexual (everardo mario) [facility] NEGATED: Highlighted rowStart: NINF History of tobacco use Passive smoker [facility] Medical Equipment Procedure Code Equipment Code Equipment Origin al Text Equipment Identifier Dates Gas Ispan [employer] Intraocular Vision System [id number] - [id number] Start: 07-27-2024 Stent Vasc 6x40x 125 6f Zilver - Sna - [id number] Start: 11-22-2024 Stent Oliva 5x40x1 25 6f Zilver - Sna - [id number] Start: 11-22-2024 Functional Status Date Assessment Result Facility 07-18-2024 Are you deaf, or do you have serious difficulty hearing No 07/18/2024 12:17 PM Jaci Umana RN No [facility] 07-18-2024 Are you blind, or do you have serious difficulty seeing, even when wearing glasses Yes 07/18/2024 12:17 PM Jaci Umana, RADHA Yes [facility] 07-18-2024 Do you have serious difficulty walking or climbing stairs Yes 07/18/2024 12:17 PM Jaci Umana, RADHA Yes [facility] 07-18-2024 Do you have difficul ty dressing or bathing Yes 07/18/2024 12:17 PM Jaci Umana RN Yes [facility] 07-18-2024 Because of a physica l, mental, or emotional condition, do you have difficulty doing errands alone such as visiting a physician's office or shopping Yes 07/18/2024 12:17 PM Jaci Umana RN Yes [facility] Mental Status Date Assessment Result Facility 07-18-2024 Because of a physica l, mental, or emotional condition, do you have serious difficulty concentrating, remembering, or making decisions No 07/18/2024 12:17 PM Jaci Umana RN No [facility] Clinical Notes 05-14-2022 to 01-02-2025 Savana [...] to HTN (SBP 199/99 at presentation to [place]) and anticoagulation that led to angle closure [...] its relevant components. documented in this encounter [facility] 01-02-2025 Note HNO ID: [id number] Author: SAVANA LOPEZ MD Service: ? Author Type: Physician Type: Progress Notes Filed: 01/02/2025 12:56 Note Text: Can see shadows; No pain right eye Suprachoroidal hemorrhage RIGHT EYE S/p choroidal drainage RIGHT eye on 07/13/24 for choroidal hemorrhage with repositioning of IOL (Mammo/Luis Alberto) S/p Choroidal drainage/PPV/EL/PFO/FAX/C3F8 (16%) RIGHT eye on 07/27/24 for choroidal hemorrhage and retinal detachment (Mammo/Luis Albetro) - LP vision - AC with resolved [...] choroidals (not yet appositional) - Evaluated at [facility] 07/12/24 with intense nausea and multiple episodes [...] plan as state (more content not included)... 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 HYSTERECTOMY ORTHOPEDIC SURGERY THROMBECTOMY Right 04/06/2024 RLE mechanical thrombectomy (Krzysztof) VASCULAR SURGERY Right 11/22/2024 AORTOILIAC ANGIOGRAPHY, RIGHT LOWER EXTREMITY ANGIOGRAPHY WITH RUNOFF, SUPERFICIAL FEMORAL ARTERY, POPLITEAL,TIBIAL ANGIOPLASTY and STENTING (Krzysztof) VASCULAR SURGERY Left 11/22/2024 Left femoral angiography (Krzysztof) documented in this encounter [facility] 12-05-2024 History of Present illness Narrative 12/05/2024 [...] limited to breakdown of skin ([facility]) - Primary Relevant Orders Vascular US lower extremity arterial duplex right with MICHELLE PAD (peripheral artery disease) ([facility]) Relevant Orders Vascular US lower [...] I reviewed the images with the patient's adfcqcid-ao-but who was present for today's visit as [...] and STENTING (Krzysztof) documented in this encounter [facility] 11-22-2024 Procedure note POA called to bedside and discharge instructions reviewed. Groin site remains intact and LE distal pulses unchanged via assessment with doppler. Transportation called for picking crew supervisor [facility] 11-22-2024 Miscellaneous Notes POA called to bedside and discharge instructions reviewed. Groin site remains intact and LE distal pulses unchanged via assessment with doppler. Transportation called for picking crew supervisor POA given updated via phone call. Made [...] the patient as well as the patient's uitagdug-bo-zhr Fidel. They have elected to proceed. PROCEDURE [...] technique was used to place a 5 Danish sheath. The Bentson wire was positioned in [...] catheter and the catheter removed. The 5 Danish sheath was exchanged for a long 6 Danish Ansell sheath which was positioned with its [...] sheath was exchanged for a short 6 Danish sheath. A Vascade closure device was deployed [...] MD Vascular Surgery documented in this encounter [facility] 11-22-2024 Procedure note POA given updated via phone call. Made aware of patient's orders to lay flat until 1325. Daughter in law stated that she will call care facility later to make arrangements for transportation back. [facility] 11-22-2024 Hospital Discharge instructions Mehreen Khanna MD [...] the office l documented in this encounter [facility] 11-22-2024 Nurse Note Patient arrived on unit. Name and date verified. Attached to monitors. Vital signs stable. [facility] 11-22-2024 Note [facility] 11-22-2024 Procedure note OPERATIVE REPORT DATE [...] the patient as well as the patient's uoegulhj-ts-kzl Fidel. They have elected to proceed. PROCEDURE [...] technique was used to place a 5 Danish sheath. The Bentson wire was positioned in [...] catheter and the catheter removed. The 5 Danish sheath was exchanged for a long 6 Danish Ansell sheath which was positioned with its [...] sheath was exchanged for a short 6 Danish sheath. A Vascade closure device was deployed [...] preoperative examination. Kristyn Blankenship MD Vascular Surgery [facility] 11-22-2024 Attending History and physical note H&P [...] with a walker with pT at her senior care facility. She is on Eliquis and statin. She is a former smoker. PastMedical History: Past Medical History: Diagnosis Date Arrhythmia PAF Asthma Chronic kidney disease COPD (chronic obstructive pulmonary disease) ([facility]) DVT (deep venous thrombosis) ([facility]) Essential hypertension 03/07/2020 GERD (gastroesophageal reflux disease) Hiatal hernia IBS (irritable bowel syndrome) Pure hypercholesterolemia 03/07/2020 PVD (peripheral vascular disease) ([facility]) Stroke ([facility]) Past Surgical History: Past Surgical History: Procedure Laterality Date ANKLE SURGERY ARM SURGERY (HISTORICAL) Right COLONOSCOPY ESOPHAGEAL DILATION EYE SURGERY Right 07/05/2024 [facility] EYE SURGERY Right 06/2024 , [facility] FINGER AMPUTATION Right 03/07/2020 right index [...] min Stress: Patient Unable To Answer (08/03/2024) [facility] [place] [facility] [employer] [facility] - Occupational Stress Questionnaire Feeling of Stress : Patient unable to answer Social Connections: Unknown (08/03/2024) Social Connection and Isolation Panel [NHANES] Frequency of Communication with Friends and Family: Patient unable to answer Frequency of Social Gatherings with Friends and Family: Patient unable to answer Attends Church Services: Patient unable to answer Active Member of Clubs or Organizations: Patient unable to answer Attends Club or Organization Meetings: Never Marital Status: Patient unable to answer Recent Concern: Social Connections - Moderately Isolated (06/20/2024) Received from [facility] Social Connection and Isolation Panel [NHANES] Frequency of Communication with Friends and Family: More than three times a week Frequency of Social Gatherings with Friends and Family: Once a week Attends Church Services: More than 4 times per year [...] like me to discuss this with her slfibunx-gn-hxs Fidel Castillo. She states she is her POA. I have contacted Fidel via telephone and explained the above and the recommendations for angiography. She will speak with the patient and call the office to let us know how they would like to proceed. Kristyn Blankenship MD Vascular Surgery [facility] Work Phone: 11-22-2024 Note [facility] 11-22-2024 History and physical note H&P [...] with a walker with pT at her senior care facility. She is on Eliquis and statin. She is a former smoker. PastMedical History: Past Medical History: Diagnosis Date Arrhythmia PAF Asthma Chronic kidney disease COPD (chronic obstructive pulmonary disease) ([facility]) DVT (deep venous thrombosis) ([facility]) Essential hypertension 03/07/2020 GERD (gastroesophageal reflux disease) Hiatal hernia IBS (irritable bowel syndrome) Pure hypercholesterolemia 03/07/2020 PVD (peripheral vascular disease) ([facility]) Stroke ([facility]) Past Surgical History: Past Surgical History: Procedure Laterality Date ANKLE SURGERY ARM SURGERY (HISTORICAL) Right COLONOSCOPY ESOPHAGEAL DILATION EYE SURGERY Right 07/05/2024 [facility] EYE SURGERY Right 06/2024 , [facility] FINGER AMPUTATION Right 03/07/2020 right index [...] Resource Strain: Low Risk (06/20/2024) Received from [facility] Medical Overall Financial Resource Strain (CARDIA) [...] min Stress: Patient Unable To Answer (08/03/2024) [facility] [place] [facility] - Occupational Stress Questionnaire Feeling of Stress : Patient unable to answer Social Connections: Unknown (08/03/2024) Social Connection and Isolation Panel [NHANES] Frequency of Communication with Friends and Family: Patient unable to answer Frequency of Social Gatherings with Friends and Family: Patient unable to answer Attends Church Services: Patient unable to answer Active Member [...] Friends and Family: Once a week Attends Church Services: More than 4 times per year [...] like me to discuss this with her rdepjpqm-vm-opy Fidel Castillo. She states she is her POA. I have contacted Fidel via telephone and explained the above and the recommendations for angiography. She will speak with the patient and call the office to let us know how they would like to proceed. Kristyn Blankenship MD Vascular Surgery documented in this encounter [facility] 11-09-2024 Note Tried to reach patie nt to discuss production control scheduler her procedure. Mailbox full & unable to leave voicemail. [facility] 11-05-2024 History of Present illness Narrative Vascular [...] with a walker with pT at her senior care facility. She is on Eliquis and statin. [...] 07/05/2024 [facility] Right 03/07/2020 right index [...] Resource Strain: Low Risk (06/20/2024) Received from [facility] Medical Overall Financial Resource Strain (CARDIA) [...] min Stress: Patient Unable To Answer (08/03/2024) [facility] [place] [facility] [employer] - Occupational Stress Questionnaire Feeling of Stress : Patient unable to answer Social Connections: Unknown (08/03/2024) Social Connection and Isolation Panel [NHANES] Frequency of Communication with Friends and Family: Patient unable to answer Frequency of Social Gatherings with Friends and Family: Patient unable to answer Attends Church Services: Patient unable to answer Active Member of Clubs or Organizations: Patient unable to answer Attends Club or Organization Meetings: Never Marital Status: Patient unable to answer Recent Concern: Social Connections - Moderately Isolated (06/20/2024) Received from [facility] Social Connection and Isolation Panel [NHANES] Frequency of Communication with Friends and Family: More than three times a week Frequency of Social Gatherings with Friends and Family: Once a week Attends Church Services: More than 4 times per year [...] like me to discuss this with her pqaspsdv-oe-seq Fidel Castillo. She states she is her POA. I have contacted Fidel via telephone and explained the above and the recommendations for angiography. She will speak with the patient and call the office to let us know how they would like to proceed. Kristyn Blankenship MD Vascular Surgery documented in this encounter [facility] 11-05-2024 Note [facility] 10-01-2024 Note Date of Procedure 10/01/2024. Pipeline Technician Information CATALINA Donovan CDOS 10/01/2024 10:58 AM [...] drops right eye documented in this encounter [facility] 10-01-2024 Note HNO ID: [id number] Author: SAVANA LOPEZ MD Service: ? Author [...] choroidals (not yet appositional) - Evaluated at [facility] 07/12/24 with intense nausea and multiple episodes [...] to HTN (SBP 199/99 at presentation to [place]) and anticoagulation that led to angle closure [...] agree with al (more content not included)... [facility] 10-01-2024 History of Present illness Narrative [...] choroidals (not yet appositional) - Evaluated at [facility] 07/12/24 with intense nausea and multiple episodes [...] to HTN (SBP 199/99 at presentation to [place]) and anticoagulation that led to angle closure [...] its relevant components. 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 documented in this encounter [facility] 09-05-2024 Note HNO ID: [id number] Author: SAVANA LOPEZ MD Service: ? 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 [facility] 08-22-2024 History of Present illness Narrative [facility] Vascular Surgery Follow-up Office Visit CHIEF COMPLAINT: Chief Complaint Patient presents with Follow-up 3 month follow up, P[facility] check [facility] HISTORY OF PRESENT ILLNESS: Mel Pop [...] is ambulating with walker with PT at [facility] without difficulty. She denies any rest pain [...] 07/05/2024 [facility] EYE SURGERY Right 06/2024 x2, [facility] FINGER AMPUTATION Right 03/07/2020 right index [...] Resource Strain: Low Risk (06/20/2024) Received from [facility] Medical Overall Financial Resource Strain (CARDIA) [...] min Stress: Patient Unable To Answer (08/03/2024) [facility] [facility] - Occupational Stress Questionnaire Feeling of Stress : Patient unable to answer Social Connections: Unknown (08/03/2024) Social Connection and Isolation Panel [NHANES] Frequency of Communication with Friends and Family: Patient unable to answer Frequency of Social Gatherings with Friends and Family: Patient unable to answer Attends Church Services: Patient unable to answer Active Member of Clubs or Organizations: Patient unable to answer Attends Club or Organization Meetings: Never Marital Status: Patient unable to answer Recent Concern: Social Connections - Moderately Isolated (06/20/2024) Received from [facility] Social Connection and Isolation Panel [NHANES] Frequency of Communication with Friends and Family: More than three times a week Frequency of Social Gatherings with Friends and Family: Once a week Attends Church Services: More than 4 times per year [...] Follow-Up: prn . documented in this encounter [facility] 08-16-2024 Note [facility] 08-16-2024 Nurse Note Patient picked up for transfer to [facility] by stretcher. Report already called to GENET Garcia. [facility] 08-16-2024 Nurse Note Patient picked up for transfer to [facility] by stretcher. Report already called to GENET Garcia. Telephone report called to GENET Garcia at [facility]. Bedside swallow completed. Pt passed and tolerated well tolerated well. documented in this encounter [facility] 08-16-2024 Nurse Note Telephone report called to GENET Garcia at [facility]. [facility] 08-16-2024 Note Formatting of this n ote might be different from the original. Arranged transport to [facility] via [facility] with pickup at 2pm. Notified snf of transport time via Careport message; reviewed time with RN, day camp unit leader and TCC. Called pt's daughter to review discharge time., plan; she is agreeable. [facility] 08-16-2024 Note Formatting of this n ote might be different from the original. Arranged transport to [facility] via [facility] with pickup at 2pm. Notified snf of transport time via Careport message; reviewed time with RN, day camp unit leader and TCC. Called pt's daughter to review discharge time., plan; she is agreeable. [facility] 08-16-2024 Miscellaneous Notes Arranged transport to [facility] via [facility] with pickup at 2pm. Notified snf of transport time via Careport message; reviewed time with RN, day camp unit leader and TCC. Called pt's daughter to review discharge time., plan; she is agreeable. Patient Choice Patient Name: MEL POP Date of : 1940 All Providers Sent Referral Name: [facility] Phone: [phone] Address: [address] [place] [address] Name: The [facility] Phone: [phone] Address: [address] [place] [address] Name: [facility] Phone: [phone] Address: [address] [place] [address] MAR & Discharge med list transmitted to [facility] via Careport per TCC request. Pt has auth to go to [facility]. Dttiffanie Stokes,[phone] was called, message left @DC. Care Team was messaged...place DC orders/MAR. Dar YOUNG RN complete HECTOR. ASSISTANT MANAGER AIRSIDE OPERATIONS will arrange transport for this am. ROLLER VARNISHER tasked to sebd DC orders/MAR. Problem: Knowledge [...] Progressing Authorization is pending with [employer]. Ref# [id number] to be DC'd to [facility]. Dtr Fidel Updated. CM to [...] Progressing Pt has Been accepted to [facility]. Need PT/OT to see so auth [...] Outcome: Progressing Referral placed to SNF- [facility] via [facility] per [facility] request. Await review and response regarding ability to accept. TCC notified. Electronically signed by Christine Morataya CMA, 08-13-2024 at 3:00 PM Called dgt to talk about dc planning. Dgt continues to tour SNFs this evening, since she was sick this weekend. Provided me with two more SNF choices. [facility] Tasked ROLLER VARNISHER to create these referrals. CM to follow. [...] place, Dgt touring facilities over the weekend. [facility] pending acceptance, [facility]. Problem: Knowledge Deficit Goal: Patient/family/caregiver demonstrates understanding [...] Nutritional Intake Outcome: Progressing Referral placed to [facility] via [facility] per [facility] request. Await review and response regarding ability to accept. [facility] notified. Electronically signed by Christine Morataya [facility], 08-10-2024 at 9:23AM Pt was to be DC to [facility]. Found out pt and dtr didn't want to return to [facility]. SNF was made aware. On adm spoke with Dtr Fidel, ok to return. Called Dtr this am, after speaking with pt and things that happened and didn't happen. Fidel requesting a referral to be made to [facility]. [facility] tasked to send. A SNF list was emailed to Fidel. [email or web address]. She will tour facilities over weekend. CM [...] and med list sent via Careport to [facility] per TCC request. Auth received. Patient with active dc orders. [facility] with estimated picking crew supervisor time of 1929. VM left with daughter Fidel along with 3N phone number to call with questions. Bedside RN aware. Facility updated. [facility] supervisor capacitor processing sent orders to [facility]. manager of learning was asked to assist with setting up transport back to [facility] this evening. litigation secretary had already done so, but this manager presentation called daughter to inform her of discharge and transport set up. Daughter did not wish patient to return to the SNF. Rehab Manager told her that patient is medically stable for dc and that she should continue the discussion with the licensed social worker and sccm administrator at The snf, and also get options from [employer]. Coordinator was to message the snf about return this evening via CarePort. Updated PT/OT notes placed to SNF [facility] via Careport per TCC request. Await review and response regarding ability to accept. TCC notified. Patient is medically ready for dc. PT/OT both continuing to recommend SNF. [facility] manager presentation asked to start auth. Plan to dc back to [facility] pending auth I was off Yesterday, PT note was in from Tuesday. Therapy to see today was sent out to OT Tuesday to see yesterday. Pt was not seen. I did sent a therapy to see today to PT/OT so an auth can be started. Pt will Be Dc'd to [facility]. CM to follow. Problem: Knowledge Deficit [...] aspiration 2/2 vomiting. Discharge Plan: Return to [facility]. Therapy eval needed for precert. TCC [...] Plan is for pt to return to [facility]. Auth and HECTOR needed prior to DC. CM to follow. Per attending pt ready for DC. Pt will return to [facility]. Pt needs PT/OT to start [...] RN Outcome: Progressing Return [facility] request. Await review and response regarding ability to accept. TCC notified. Pt to ED w N/V/Diarrhea, was Dx w Aspiration pneumonitis. Started on IV ATB's. Called pt's Dtr, Fidel, . Pt is from [facility]. Plan on returning. [facility] tasked to send a return referral. Problem: [...] Improved Outcome: Progressing documented in this encounter [facility] 08-16-2024 Note Formatting of this n ote might be different from the original. Patient Choice Patient Name: MEL POP Date of : 1940 All Providers Sent [facility] Phone: [phone] Address: [address] [place], [place] [id number] Name: [facility] Phone: [phone] Address: [address] [place] [address] Name: [facility] Phone: [phone] Address: [address] [place] [address] [facility] 08-16-2024 Note Formatting of this n ote might be different from the original. Patient Choice Patient Name: MEL POP Date of : 1940 All Providers Sent Referral Name: [facility] Phone: [phone] Address: [address] [place] [address] Name: [facility] Phone: [phone] Address: [address] [place] [address] Name: [facility] Phone: [phone] Address: [address] [place] [address] [facility] 08-16-2024 Note Formatting of this n ote might be different from the original. MAR & Discharge med list transmitted to [facility] via Careport per TCC request. [facility] 08-16-2024 Note Formatting of this n ote might be different from the original. MAR & Discharge med list transmitted to [facility] via Careport per TCC request. [facility] 08-16-2024 Note Formatting of this n ote might be different from the original. Pt has auth to go to [facility]. Dtr Fidel,[phone] was called, message left @DC. Care Team was messaged...place DC orders/MAR. Dar YOUNG RN complete HECTOR. ASSISTANT MANAGER AIRSIDE OPERATIONS will arrange transport for this am. [facility] tasked to sebd DC orders/MAR. [facility] 08-16-2024 Note Formatting of this n ote might be different from the original. Pt has auth to go to [facility]. Dtr Fidel,[phone] was called, message left @DC. Care Team was messaged...place DC orders/MAR. Dar YOUNG RN complete HECTOR. ASSISTANT MANAGER AIRSIDE OPERATIONS will arrange transport for this am. ROLLER VARNISHER tasked to sebd DC orders/MAR. [facility] 08-16-2024 History of Present illness Narrative Hospitalist Progress Note 08/16/2024 Subjective: Admit Date: 08/03/2024 PCP: Jared Evans MD Room#: [id number] A BRIEF HOSPITAL COURSE: Mel is a 83 y.o. female with past medical history below who presents with chief complaint listed above.Patient is an 83 y/o female who presented to [place] [facility] early this AM from local [place] for [place] and diarrhea. Patient reported she [...] COPD (chronic obstructive pulmonary disease) ([facility]) DVT (deep venous thrombosis) ([facility]) Essential hypertension 03/07/2020 GERD (gastroesophageal reflux disease) Hiatal hernia IBS (irritable bowel syndrome) Pure hypercholesterolemia 03/07/2020 PVD (peripheral vascular disease) ([facility]) Stroke ([facility]) LABS: CBC: No results for [...] Devika Escobar MD Division of Hospitalist Medicine [facility] Hospitalist Progress Note 08/15/2024 Subjective: Admit Date: 08/03/2024 PCP: Jared Evans MD Room#: [id number] A BRIEF HOSPITAL COURSE: Mel is a 83 y.o. female with past medical history below who presents with chief complaint listed above.Patient is an 83 y/o female who presented to [place] [facility] early this AM [place] local [place] for [place] and diarrhea. Patient reported she [...] (HCC) DVT (deep venous thrombosis) ([facility]) Essential hypertension 03/07/2020 GERD (gastroesophageal reflux disease) Hiatal hernia IBS (irritable bowel syndrome) Pure hypercholesterolemia 03/07/2020 PVD (peripheral vascular disease) ([facility]) Stroke ([facility]) LABS: CBC: No results for [...] Information Primary Emergency Contact: José Miguel Castillo/ Fdiel Mobile Relation: Mother Secondary Emergency Contact: Damaris Villafana DO NOT CALL-TERMINALLY ILL Mobile Relation: Friend Devika Escobar MD Division of Hospitalist Medicine [facility] Images from the original note were not included. PHYSICAL THERAPY [facility] Treatment Note Name/MRN: Mel Pop ([id number]) Date of : 1940 Age: 83 y.o. 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 [...] Goal: keep getting up, get back to [place]. Encounter Problems Encounter Problems (Active) Balance Patient [...] original note were not included. OCCUPATIONAL THERAPY [facility] Treatment Note Name/MRN: Mel Pop ([id number]) Date of : 1940 Age: 83 y.o. [facility]: [facility] A Discharge Recommendation: [facility] Facility Prior Level of Function Prior Level [...] with 24/7 assist, home health OT and home restoration service cleaner. Pt. ( Who is totally BLIND), Would due better receiving therapy in her home due to familiar environment. If she can not get 24/7 assist at home then OT [place] Subjective Pt. Remains in her recliner eating [...] Date: 08/03/2024 PCP: Jared Evans MD Room#: [id number] A BRIEF HOSPITAL COURSE: Mel is a 83 y.o. female with past medical history below who presents with chief complaint listed above.Patient is an 83 y/o female who presented to [place] [facility] early this AM [place] local [place] for [place] and diarrhea. Patient reported she [...] Devika Escobar MD Division of Hospitalist Medicine [facility] Hospitalist Progress Note 08/13/2024 Subjective: Admit Date: 08/03/2024 PCP: Jared Evans MD Room#: [id number] A BRIEF HOSPITAL COURSE: Mel is a 83 y.o. female with past medical history below who presents with chief complaint listed above.Patient is an 83 y/o female who presented to [place] [facility] early this AM [place] for [place] and diarrhea. Patient reported she [...] (HCC) DVT (deep venous thrombosis) ([facility]) Essential hypertension 03/07/2020 GERD (gastroesophageal reflux disease) Hiatal hernia IBS (irritable bowel syndrome) Pure hypercholesterolemia 03/07/2020 PVD (peripheral vascular disease) ([facility]) Stroke ([facility]) LABS: CBC: No results for [...] Kael Anderson DO Division of Hospitalist Medicine [facility] Nutrition Assessment Type and Reason for Visit: [...] No significant fluid accumulation (per flow sheets) Wind Turbine Installer Strength: Not Performed Nutrition Assessment: 83 y.o. [...] On: Kcal/kg Weight Used for Energy Requirements: [place] Weight for Energy Calculation (kg): 54 kg Total Energy Requirements (kcals/day): 7622-6813 Weight Used for Protein Requirements: [place] Weight in Kg Used for Protein Requirements: [...] 160# 07/05) % Weight Change (Calculated): 12.2 [place] Body Weight (lbs) (Calculated): 119 lbs [place] Body Weight (Kg) (Calculated): 54 kg BMI [...] soon to determine Janki Fields RD Contact: *[phone] Hospitalist Progress Note 08/12/2024 Subjective: Admit Date: 08/03/2024 PCP: Jared Evans MD Room#: [id number] A BRIEF HOSPITAL COURSE: Mel is a 83 y.o. female with past medical history below who presents with chief complaint listed above.Patient is an 83 y/o female who presented to [place] [facility] early this AM [place] local [place] for vomiting and diarrhea. Patient reported she [...] (HCC) DVT (deep venous thrombosis) ([facility]) Essential hypertension 03/07/2020 GERD (gastroesophageal reflux disease) Hiatal hernia IBS (irritable bowel syndrome) Pure hypercholesterolemia 03/07/2020 PVD (peripheral vascular disease) ([facility]) Stroke ([facility]) LABS: CBC: No results for [...] Kael Anderson DO Division of Hospitalist Medicine [facility] Hospitalist Progress Note 08/11/2024 Subjective: Admit Date: 08/03/2024 PCP: Jared Evans MD Room#: [id number] A BRIEF HOSPITAL COURSE: Mel is a 83 y.o. female with past medical history below who presents with chief complaint listed above.Patient is an 83 y/o female who presented to [place] [facility] early this AM [place] local [place] for [place] and diarrhea. Patient reported she [...] DO Division of Hospitalist Medicine Acute care [facility] Hospitalist Progress Note 08/10/2024 Subjective: Admit Date: 08/03/2024 PCP: Jared Evans MD Room#: N6-696/[id number] A BRIEF HOSPITAL COURSE: Mel is a 83 y.o. female with past medical history below who presents with chief complaint listed above.Patient is an 83 y/o female who presented to [place] [facility] early this AM [place] local [place] for [place] and diarrhea. Patient reported she [...] COPD (chronic obstructive pulmonary disease) ([facility]) DVT (deep venous thrombosis) ([facility]) Essential hypertension 03/07/2020 GERD (gastroesophageal reflux disease) Hiatal hernia IBS (irritable bowel syndrome) Pure hypercholesterolemia 03/07/2020 PVD (peripheral vascular disease) ([facility]) Stroke ([facility]) LABS: CBC: No results for [...] Kael Anderson DO Division of Hospitalist Medicine [facility] Hospitalist Progress Note 08/09/2024 Subjective: Admit Date: 08/03/2024 PCP: Jared Evans MD Room#: [id number]/[id number] A BRIEF HOSPITAL COURSE: Mel is a 83 y.o. female with past medical history below who presents with chief complaint listed above.Patient is an 83 y/o female who presented to [place] ER early this AM from local [place] for vomiting and diarrhea. Patient reported she [...] Kael Anderson DO Division of Hospitalist Medicine [facility] Images from the original note were not included. OCCUPATIONAL THERAPY [facility] Initial Evaluation Name/MRN: Mel Pop ([id number]) Evaluation Date: 08/08/2024 Date of : 1940 Admission Date: 08/03/2024 2:22 AM Age: 83 y.o. [facility] Discharge Recommendation: Halfway Facility Assessment IMPRESSION: Pt would benefit from [...] COPD (chronic obstructive pulmonary disease) ([facility]) DVT (deep venous thrombosis) ([facility]) Essential hypertension 03/07/2020 GERD (gastroesophageal reflux disease) Hiatal hernia IBS (irritable bowel syndrome) Pure hypercholesterolemia 03/07/2020 PVD (peripheral vascular disease) ([facility]) Stroke ([facility]) Past Surgical History: Past Surgical History: Procedure Laterality Date ANKLE SURGERY ARM SURGERY (HISTORICAL) Right COLONOSCOPY ESOPHAGEAL DILATION EYE SURGERY 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 HYSTERECTOMY ORTHOPEDIC SURGERY THROMBECTOMY Right 04/06/2024 RLE mechanical thrombectomy (Krzysztof) Admission Diagnosis: Patient Active Problem List Diagnosis Date Noted Aspiration pneumonitis (CMS/HCC) ([facility]) 08/03/2024 Visual disturbance, subjective 07/06/2024 Retinal detachment, right 07/05/2024 Vision loss of right eye 07/05/2024 Acute venous embolism and thrombosis of deep vessels of proximal lower extremity ([facility]) 04/14/2024 Peripheral arterial disease ([facility]) 04/03/2024 Immunodeficiency due to conditions classified elsewhere ([facility]) 07/27/2023 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 ([facility]) 07/27/2023 Bilateral pneumonia 06/16/2022 COVID-19 06/16/2022 Hypothyroidism 06/16/2022 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[facility]) 06/16/2022 Cellulitis 05/18/2022 Nicotine use disorder 05/18/2022 Acute venous embolism and thrombosis of deep vessels of proximal end of right lower extremity ([facility]) 04/19/2024 Atrial fibrillation, unspecified type ([facility]) 04/19/2024 Irritable bowel syndrome with diarrhea 03/07/2020 Microscopic hematuria 03/07/2020 Left retinal detachment 03/07/2020 Hyperglycemia 03/07/2020 Osteopenia of left femoral neck 03/07/2020 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 03/07/2020 Seasonal allergies 03/07/2020 Chronic renal insufficiency, stage III (moderate) ([facility]) 03/07/2020 Major depression, single episode, in complete remission ([facility]) 03/07/2020 Gastroesophageal reflux disease without esophagitis 03/07/2020 Essential hypertension 03/07/2020 Pure hypercholesterolemia 03/07/2020 Overweight 03/07/2020 Psoriasis 03/07/2020 History of cerebrovascular accident 03/07/2020 Atrial fibrillation ([facility]) 03/07/2020 Chronic obstructive pulmonary disease ([facility]) 03/07/2020 Finger osteomyelitis, right ([facility]) 03/06/2020 Medical Precautions: Enhanced Contact [...] of Care supervision is transferred to a [facility] Therapy Services Occupational Therapist. Goals and/or treatment plan was established in collaboration with patient/family/other representatives. Shannon Fernandez MS, OTR/L Images from the original note were not included. PHYSICAL THERAPY [facility] Treatment Note Name/MRN: Mel Pop ([id number]) Date of : 1940 Age: 83 y.o. Room/Bed: N5-548/N5-548 A Discharge Recommendation: Halfway Facility Equipment Needed: (pt uses [facility] HEALTH PHYSICS TECHNICIAN) Prior Level of Function Prior Level of [...] Goal: keep getting up, get back to [place]. Encounter Problems Encounter Problems (Active) Balance Patient [...] Date: 08/03/2024 PCP: Jared Evans MD Room#: N0-250/[id number] A BRIEF HOSPITAL COURSE: Mel is a 83 y.o. female with past medical history below who presents with chief complaint listed above.Patient is an 83 y/o female who presented to [place] [facility] early this AM [place] for [place] diarrhea. Patient reported she [...] (HCC) DVT (deep venous thrombosis) ([facility]) Essential hypertension 03/07/2020 GERD (gastroesophageal reflux disease) Hiatal hernia IBS (irritable bowel syndrome) Pure hypercholesterolemia 03/07/2020 PVD (peripheral vascular disease) ([facility]) Stroke ([facility]) LABS: CBC: Recent Labs 08/05/24 [...] Date: 08/03/2024 PCP: Jared Evans MD Room#: [id number]/[id number] A BRIEF HOSPITAL COURSE: Mel is a 83 y.o. female with past medical history below who presents with chief complaint listed above.Patient is an 83 y/o female who presented to [place] ER early this AM [place] local [place] for [place] and diarrhea. Patient reported she [...] 100 mL/hr, Last Rate: 100 mL/hr (08/06/24 2644) Assessment Data: Acute, acute on chronic, unstable/uncontrolled [...] Kael Anderson DO Division of Hospitalist Medicine [facility] Hospitalist Progress Note 08/06/2024 Subjective: Admit Date: 08/03/2024 PCP: Jared Evans MD Room#: [id number]/[id number] A BRIEF HOSPITAL COURSE: Mel is a 83 y.o. female with past medical history below who presents with chief complaint listed above.Patient is an 83 y/o female who presented to [place] [facility] early this AM [place] for [place]. Patient reported she [...] COPD (chronic obstructive pulmonary disease) ([facility]) DVT (deep venous thrombosis) ([facility]) Essential hypertension 03/07/2020 GERD (gastroesophageal reflux disease) Hiatal hernia IBS (irritable bowel syndrome) Pure hypercholesterolemia 03/07/2020 PVD (peripheral vascular disease) ([facility]) Stroke ([facility]) LABS: CBC: Recent Labs 08/04/2444608/05/2435708/05/24 [...] Kayden Tatum MD Division of Hospitalist Medicine [facility] Images from the original note were not included. PHYSICAL THERAPY [facility] Initial Evaluation Name/MRN: Mel Pop ([id number]) Evaluation Date: 08/06/2024 Date of : 1940 Admission Date: 08/03/2024 2:22 AM Age: 83 y.o. Room/Bed: N1-117/N3-849 A Discharge Recommendation: Halfway Facility (pt from SNF at baseline) Equipment Needed: (pt uses [facility] HEALTH PHYSICS TECHNICIAN) Assessment IMPRESSION: Pt's Vincent scoring has varied [...] to SNF-level care (pt was receiving PT HEALTH PHYSICS TECHNICIAN) Admitting Diagnosis: aspiration pneumonitis, + Norovirus. S/p [...] COPD (chronic obstructive pulmonary disease) ([facility]) DVT (deep venous thrombosis) ([facility]) Essential hypertension 03/07/2020 GERD (gastroesophageal reflux disease) Hiatal hernia IBS (irritable bowel syndrome) Pure hypercholesterolemia 03/07/2020 PVD (peripheral vascular disease) ([facility]) Stroke ([facility]) Past Surgical History: Past Surgical History: Procedure Laterality Date ANKLE SURGERY ARM SURGERY (HISTORICAL) Right COLONOSCOPY ESOPHAGEAL DILATION EYE SURGERY 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 HYSTERECTOMY ORTHOPEDIC SURGERY THROMBECTOMY Right 04/06/2024 RLE mechanical thrombectomy (Krzysztof) Admission Diagnosis: Patient Active Problem List Diagnosis Date Noted Aspiration pneumonitis ([facility]/HCC) ([facility]) 08/03/2024 Visual disturbance, subjective 07/06/2024 Retinal detachment, right 07/05/2024 Vision loss of right eye 07/05/2024 Acute venous embolism and thrombosis of deep vessels of proximal lower extremity ([facility]) 04/14/2024 Peripheral arterial disease ([facility]) 04/03/2024 Immunodeficiency due to conditions classified elsewhere ([facility]) 07/27/2023 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 ([facility]) 07/27/2023 Bilateral pneumonia 06/16/2022 COVID-19 06/16/2022 Hypothyroidism 06/16/2022 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 Cellulitis 05/18/2022 Nicotine use disorder 05/18/2022 Acute venous embolism and thrombosis of deep vessels of proximal end of right lower extremity (HCC) 04/19/2024 Atrial fibrillation, unspecified type ([facility]) 04/19/2024 Irritable bowel syndrome with diarrhea 03/07/2020 Microscopic hematuria 03/07/2020 Left retinal detachment 03/07/2020 Hyperglycemia 03/07/2020 Osteopenia of left femoral neck 03/07/2020 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 03/07/2020 Seasonal allergies 03/07/2020 Chronic renal insufficiency, stage III (moderate) ([facility]) 03/07/2020 Major depression, single episode, in complete remission ([facility]) 03/07/2020 Gastroesophageal reflux disease without esophagitis 03/07/2020 Essential hypertension 03/07/2020 Pure hypercholesterolemia 03/07/2020 Overweight 03/07/2020 Psoriasis 03/07/2020 History of cerebrovascular accident 03/07/2020 Atrial fibrillation (HCC) 03/07/2020 Chronic obstructive pulmonary disease ([facility]) 03/07/2020 Finger osteomyelitis, right ([facility]) 03/06/2020 Medical Precautions: Enhanced Contact [...] OD Hearing: normal Social/Functional History Resident at [facility] at baseline. Goes to therapy and [...] Raw Score (No Stairs) : 15 [facility] Score: Walked 10 steps or more (i.e. [...] Goal: keep getting up, get back to [place]. Encounter Problems Encounter Problems (Active) Balance Patient [...] of Care supervision is transferred to a [facility] Therapy Services Physical Therapist. Goals and/or treatment plan was established in collaboration with patient/family/other representatives. Hospitalist Progress Note 08/05/2024 Subjective: Admit Date: 08/03/2024 PCP: Jared Evans MD Room#: N5-548/N5-548 A BRIEF HOSPITAL COURSE: Mel is a 83 y.o. female with past medical history below who presents with chief complaint listed above.Patient is an 83 y/o female who presented to [place] ER early this AM [place] for [place] and diarrhea. Patient reported she [...] 100 mL/hr, Last Rate: 100 mL/hr (08/05/24 6475) Assessment Data: NA (LOW: 2x CAT1 or [...] Kayden Tatum MD Division of Hospitalist Medicine [facility] Images from the original note were not included. PHYSICAL THERAPY [facility] Name/MRN: Mel Pop ([id number]) Date: 08/05/2024 PT orders received per Vincent activity/mobility score. Patient currently with Vincent activity/mobility score greater than 2. Per therapy services guidelines, will discharge PT orders. Please place regular PT eval/treat orders if deemed appropriate. Padmaja Wilson PT Hospitalist Progress Note 08/04/2024 Subjective: Admit Date: 08/03/2024 PCP: Jared Evans MD Room#: N5-528/N4-533 A BRIEF HOSPITAL COURSE: Mel is a 83 y.o. female with past medical history below who presents with chief complaint listed above.Patient is an 83 y/o female who presented to [place] [facility] early this AM [place]. Patient reported she [...] COPD (chronic obstructive pulmonary disease) ([facility]) DVT (deep venous thrombosis) ([facility]) Essential hypertension 03/07/2020 GERD (gastroesophageal reflux disease) Hiatal hernia IBS (irritable bowel syndrome) Pure hypercholesterolemia 03/07/2020 PVD (peripheral vascular disease) ([facility]) Stroke ([facility]) LABS: CBC: Recent Labs 08/03/24 [...] Kayden Tatum MD Division of Hospitalist Medicine [facility] documented in this encounter [facility] 08-15-2024 Plan of care note Problem: Knowledge [...] My discharge needs are met Outcome: Progressing [facility] 08-15-2024 Note Formatting of this n ote might be different from the original. Authorization is pending with [employer]. Ref# [id number] to be DC'd to [facility]. Dtr Fidel Sharma. CM to follow. [facility] 08-15-2024 Note Formatting of this n ote might be different from the original. Authorization is pending with [facility]. Ref# [id number] to be DC'd to [facility]. Dtr Fidel Sharma. CM to follow. [facility] 08-15-2024 Note Patient progressing toward all goals. [facility] 08-15-2024 Plan of care note Patient progressing toward all goals. 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) Overview Signed 07/27/2023 2:25 PM by Kourtney Haque MA Noted by CRISTINA Keita MD last documented on [id number] Ischemic leg Nicotine use disorder 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 ([facility]) Overview Signed 07/27/2023 2:25 PM [...] detachment Hyperglycemia Osteopenia of left femoral neck 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 Seasonal allergies [...] (HCC) Atrial fibrillation, unspecified type ([facility]) Isolation/Infection: Enhanced Contact Norovirus Nurse [...] assistance Toileting Total assistance Feeding Minimal assistance Assistant Manager Airside Operations Minimal assistance Med Delivery yes Wound Care [...] select all that are sent with patient): Cary RN SIGNATURE: MANAGEMENT/SOCIAL WORK SECTION Inpatient Status Date: 08/03/2024 [facility] Address[facility] [address] [place] [address] Fax: Dialysis Facility (if applicable) Name: NA Address: Dialysis Schedule: Phone: Fax: Personal Care Aide/Chief Dispatcher Service signature: ICIAN SECTION Name: Mel Pop Prognosis: good Condition at Discharge: stable Rehab Potential (if transferring to Rehab): good Recommended Labs or Other Treatments After Discharge: none The individual is being admitted to a nursing facility directly from an [facility] or a unit of a [facility] that is not operated by or licensed by [facility] under section 5119.14 or 5160-3-15.1 5 The individual requires the level of services provided by a nursing facility for the condition for which he or she was treated in the hospital and, Physician Certification: I certify the above information and transfer of Mel Pop is necessary for the continuing treatment of the diagnosis listed and that she requires senior care facility for less than 30 days. Update Admission H&P: No change in H&P PHYSICIAN SIGNATURE: documented in this encounter [facility] 08-14-2024 Note Formatting of this n ote might be different from the original. Pt has Been accepted to [facility]. Need PT/OT to see so auth to be started. Therapy to see today was sent. Called and spoke with Dtbraxton Verdin. SNF tasked w update. CM to follow. [facility] 08-14-2024 Note Formatting of this n ote might be different from the original. Pt has Been accepted to [facility]. Need PT/OT to see so auth to be started. Therapy to see today was sent. Called and spoke with Dtbraxton Verdin. SNF tasked w update. CM to follow. [facility] 08-13-2024 Plan of care note Problem: [...] My discharge needs are met Outcome: Progressing [facility] 08-13-2024 Note Formatting of this n ote might be different from the original. Referral placed to SNF- [facility] via [facility] per TCC request. Await review and response regarding ability to accept. TCC notified. Electronically signed by Christine Morataya [facility], 08-13-2024 at 3:00 PM [facility] 08-13-2024 Note Formatting of this n ote might be different from the original. Referral placed to SNF- [facility] via [facility] per TCC request. Await review and response regarding ability to accept. TCC notified. Electronically signed by Christine Morataya [facility], 08-13-2024 at 3:00 PM [facility] 08-13-2024 Note Referral placed to S - [facility] via [facility] per TCC request. Await review and response regarding ability to accept. TCC notified. Electronically signed by Christine Morataya [facility], 08-13-2024 at 3:00 PM [facility] 08-13-2024 Note Formatting of this n ote might be different from the original. Called dgt to talk about dc planning. Dgt continues to tour SNFs this evening, since she was sick this weekend. Provided me with two more SNF choices. [facility]. Tasked [facility] to create these referrals. CM to follow. [facility] 08-13-2024 Note Formatting of this n ote might be different from the original. Called dgt to talk about dc planning. Dgt continues to tour SNFs this evening, since she was sick this weekend. Provided me with two more SNF choices. [facility]. Tasked [facility] to create these referrals. CM to follow. [facility] 08-13-2024 Plan of care note Problem: Knowledge [...] My discharge needs are met Outcome: Progressing [facility] 08-12-2024 Note Problem: Knowledge D eficit Goal: Patient/family/caregiver demonstrates understanding of disease process, treatment plan, medications, and discharge instructions Outcome: Progressing [facility] 08-12-2024 Plan of care note Problem: Knowledge Deficit Goal: Patient/family/caregiver demonstrates understanding of disease process, treatment plan, medications, and discharge instructions Outcome: Progressing [facility] 08-12-2024 Plan of care note Problem: Knowledge [...] My discharge needs are met Outcome: Progressing [facility] 08-11-2024 Plan of care note Problem: Knowledge [...] My discharge needs are met Outcome: Progressing [facility] 08-11-2024 Note Formatting of this n ote might be different from the original. CM noted DC orders in place, Dgt touring facilities over the weekend. Moira. [facility] pending acceptance, updates sent via careport. [facility] 08-11-2024 Note Formatting of this n ote might be different from the original. CM noted DC orders in place, Dgt touring facilities over the weekend. [place]. [facility] pending acceptance, updates sent via careport. [facility] 08-11-2024 Plan of care note Problem: Knowledge [...] Interventions Goal: Assess Nutritional Intake Outcome: Progressing [facility] 08-10-2024 Note Formatting of this n ote might be different from the original. Referral placed to [facility] via [facility] per TCC request. Await review and response regarding ability to accept. TCC notified. Electronically signed by Christine Morataya [facility], 08-10-2024 at 9:23AM [facility] 08-10-2024 Note Formatting of this n ote might be different from the original. Referral placed to [facility] via [facility] per TCC request. Await review and response regarding ability to accept. TCC notified. Electronically signed by Christine Morataya CMA, 08-10-2024 at 9:23AM [facility] 08-10-2024 Note Referral placed to [facility] via [facility] per TCC request. Await review and response regarding ability to accept. TCC notified. Electronically signed by Christine Morataya [facility], 08-10-2024 at 9:23AM [facility] 08-10-2024 Note Formatting of this n ote might be different from the original. Pt was to be DC to [facility]. Found out pt and dtr didn't want to return to [facility]. SNF was made aware. On adm spoke with Dtr Fidel, ok to return. Called Dtr this am, after speaking with pt and things that happened and didn't happen. Fidel requesting a referral to be made to [facility]. [facility] tasked to send. A SNF list was emailed to Fidel. [email or web address]. She will tour facilities over weekend. CM to follow. [facility] 08-10-2024 Note Formatting of this n ote might be different from the original. Pt was to be DC to [facility]. Found out pt and dtr didn't want to return to [facility]. SNF was made aware. On adm spoke with Dtr Fidel, ok to return. Called Dtr this am, after speaking with pt and things that happened and didn't happen. Fidel requesting a referral to be made to [facility]. [employer] tasked to send. A SNF list was emailed to Fidel. [email or web address]. She will tour facilities over weekend. CM to follow. [facility] 08-10-2024 Plan of care note Problem: Knowledge [...] Interventions Goal: Assess Nutritional Intake Outcome: Progressing [facility] 08-09-2024 Note Formatting of this n ote might be different from the original. Discharge summary and med list sent via [facility]port to [facility] per TCC request. [facility] 08-09-2024 Note Formatting of this n ote might be different from the original. Discharge summary and med list sent via [facility] to [facility] per TCC request. [facility] 08-09-2024 Note Discharge summary an d med list sent via [facility] to [facility] per TCC request. [facility] 08-09-2024 Note Formatting of this n ote might be different from the original. Auth received. Patient with active dc orders. Transportation arranged through [employer] with estimated picking crew supervisor time of 1930. VM left with daughter Fidel along with 3N phone number to call with questions. Bedside RN aware. Facility updated. [facility] supervisor capacitor processing sent orders to [facility]. [facility] 08-09-2024 Note Formatting of this n ote might be different from the original. Auth received. Patient with active dc orders. Transportation arranged through [employer] with estimated picking crew supervisor time of 1930. VM left with daughter Fidel along with 3N phone number to call with questions. Bedside RN aware. Facility updated. [facility] supervisor capacitor processing sent orders to [facility]. [facility] 08-09-2024 Note Formatting of this n ote might be different from the original. manager of learning was asked to assist with setting up transport back to [facility] this evening. litigation secretary had already done so, but this manager presentation called daughter to inform her of discharge and transport set up. Daughter did not wish patient to return to the SNF. Rehab Manager told her that patient is medically stable for dc and that she should continue the discussion with the licensed social worker and sccm administrator at The snf, and also get options from [employer]. Coordinator was to message the snf about return this evening via [facility]. [facility] 08-09-2024 Note Formatting of this n ote might be different from the original. manager of learning was asked to assist with setting up transport back to [facility] this evening. litigation secretary had already done so, but this manager presentation called daughter to inform her of discharge and transport set up. Daughter did not wish patient to return to the SNF. Rehab Manager told her that patient is medically stable for dc and that she should continue the discussion with the licensed social worker and sccm administrator at The snf, and also get options from [employer]. Coordinator was to message the snf about return this evening via [employer]. [facility] 08-09-2024 Note [facility] 08-09-2024 Hospital course Narrative Hospitalist Discharge [...] [facility] early [place] local [place] for [place] diarrhea. Patient reported she [...] Ellipta 100-62.5-25 MCG/ACT aerosol powder Generic drug: Glwnxlkdsgr-Fuvalkcgd-Blzdcj STOP taking these medications enoxaparin 80 MG/0.8ML [...] Complexity: follow up within 7-14 calendar days (77189) [x] Severe Complexity: follow up within 7 calendar days (48904) Follow up Testing, Pending results or Referrals [...] Anderson DO Division of Hospitalist Medicine [facility] [place] 08/09/2024, 4:23 PM documented in this encounter [facility] 08-09-2024 Note Formatting of this n ote might be different from the original. Updated PT/OT notes placed to [facility] Ashu Tomlin via [facility] per TCC request. Await review and response regarding ability to accept. TCC notified. [employer] [facility] [place] 08-09-2024 Note Formatting of this n ote might be different from the original. Updated PT/OT notes placed to SN[facility] via [facility] per TCC request. Await review and response regarding ability to accept. TCC notified. Electronically signed by [facility] Aracelis Gardiner [employer] [facility] [place] 08-09-2024 Note Formatting of this n ote might be different from the original. Patient is medically ready for dc. PT/OT both continuing to recommend SNF. [facility] manager presentation asked to start auth. Plan to dc back to [facility] pending auth [employer] [place] 08-09-2024 Note Formatting of this n ote might be different from the original. Patient is medically ready for dc. PT/OT both continuing to recommend SNF. [facility] manager presentation asked to start auth. Plan to dc back to [facility] pending auth [employer] [place] 08-08-2024 Note Formatting of this n ote might be different from the original. I was off Yesterday, PT note was in from Tuesday. Therapy to see today was sent out to OT Tuesday to see yester. Pt was not seen. I did sent a therapy to see today to PT/OT so an auth can be started. Pt will Be Dc'd to [facility]. CM to follow. [employer] [facility] [place] 08-08-2024 Note Formatting of this n ote might be different from the original. I was off Yesterday, PT note was in from Tuesday. Therapy to see today was sent out to OT Tuesday to see yesterday. Pt was not seen. I did sent a therapy to see today to PT/OT so an auth can be started. Pt will Be Dc'd to [facility]. CM to follow. [facility] [place] 08-07-2024 Plan of care note Problem: Knowledge Deficit Goal: Patient/family/caregiver demonstrates understanding of disease process, treatment plan, medications, and discharge instructions Outcome: Progressing Problem: Potential for Compromised Skin Integrity Goal: Skin Integrity is Maintained or Improved Outcome: Progressing Goal: Nutritional status is improving Outcome: Progressing [facility] [place] 08-07-2024 Plan of care note Problem: Knowledge [...] Interventions Goal: Assess Nutritional Intake Outcome: Progressing [facility] [place] 08-07-2024 Note Formatting of this n ote might be different from the original. Case Management Progress Note: Patient remains on 5N for concern with aspiration 2/2 vomiting. Discharge Plan: Return to [facility]. Therapy eval needed for precert. TCC to assist and follow as needed. [facility] [place] 08-07-2024 Note Formatting of this n ote might be different from the original. Case Management Progress Note: Patient remains on 5N for concern with aspiration 2/2 vomiting. Discharge Plan: Return to [facility]. Therapy eval needed for precert. TCC to assist and follow as needed. [facility] 08-07-2024 Plan of care note Problem: Knowledge [...] Interventions Goal: Assess Nutritional Intake Outcome: Progressing [facility] 08-06-2024 Plan of care note Problem: Knowledge [...] Interventions Goal: Assess Nutritional Intake Outcome: Progressing [facility] 08-06-2024 Note Formatting of this n ote might be different from the original. Pt cont's on IV AtBs'. Plan is for pt to return to [facility]. Auth and HECTOR needed prior to DC. CM to follow. [facility] [place] 08-06-2024 Note Formatting of this n ote might be different from the original. Pt cont's on IV AtBs'. Plan is for pt to return to [facility]. Auth and HECTOR needed prior to DC. CM to follow. [facility] [place] 08-06-2024 Note Formatting of this n ote might be different from the original. Per attending pt ready for DC. Pt will return to [facility]. Pt needs PT/OT to start auth Therapy to see put in for alistair so auth can be started. HECTOR will need completed. CM to follow. [facility] 08-06-2024 Note Formatting of this n ote might be different from the original. Per attending pt ready for DC. Pt will return to [facility]. Pt needs PT/OT to start auth Therapy to see put in for alistair so auth can be started. HECTOR will need completed. CM to follow. [facility] [place] 08-06-2024 Consult note Associated Order (s): IP [...] assess Fluid Accumulation: No significant fluid accumulation [employer] Turb[employer] Installer Strength: Not Performed Nutrition Assessment: Pt hx HTN, stroke, COPD, CKD, IBS. Admitted w/ vomiting and diarrhea. +norovirus. Started on abx for concern of aspiration pna. Pt's symptoms have improved during admission. Consuming and tolerating CLD. Medically stable for discharge back to SNF per notes. Estimated Daily Nutrient Needs: Energy Requirements Based On: Kcal/kg Weight Used for Energy Requirements: [place] Weight for Energy Calculation (kg): 54 kg Total Energy Requirements (kcals/day): 4353-5228 Weight Used for Protein Requirements: [place] Weight in Kg Used for Protein Requirements: [...] 160# 07/05) % Weight Change (Calculated): 12.2 [place] Body Weight (lbs) (Calculated): 119 lbs [place] Body Weight (Kg) (Calculated): 54 kg BMI [...] to determine Gabriella Michelle RD, LD Contact: [phone] [facility] 08-06-2024 Consult note Associated Order (s): IP [...] assess Fluid Accumulation: No significant fluid accumulation [employer] T[employer] Installer Strength: Not Performed Nutrition Assessment: Pt hx HTN, stroke, COPD, CKD, IBS. Admitted w/ vomiting and diarrhea. +norovirus. Started on abx for concern of aspiration pna. Pt's symptoms have improved during admission. Consuming and tolerating CLD. Medically stable for discharge back to SNF per notes. Estimated Daily Nutrient Needs: Energy Requirements Based On: Kcal/kg Weight Used for Energy Requirements: [place] Weight for Energy Calculation (kg): 54 kg Total Energy Requirements (kcals/day): 9956-4001 Weight Used for Protein Requirements: [place] Weight in Kg Used for Protein Requirements: [...] 160# 07/05) % Weight Change (Calculated): 12.2 [place] Body Weight (lbs) (Calculated): 119 lbs [place] Body Weight (Kg) (Calculated): 54 kg BMI [...] to determine Gabriella Michelle RD, LD Contact: [phone] documented in this encounter [facility] 08-06-2024 Plan of care note Problem: Knowledge Deficit Goal: Patient/family/caregiver demonstrates understanding of disease process, treatment plan, medications, and discharge instructions Outcome: Progressing Problem: Potential for Compromised Skin Integrity Goal: Skin Integrity is Maintained or Improved Outcome: Progressing Goal: Nutritional status is improving Outcome: Progressing Problem: Urinary Incontinence Goal: Perineal skin integrity is maintained or improved Outcome: Progressing [facility] [place] 08-05-2024 Plan of care note Problem: Knowledge Deficit Goal: Patient/family/caregiver demonstrates understanding of disease process, treatment plan, medications, and discharge instructions Outcome: Progressing Problem: Potential for Compromised Skin Integrity Goal: Skin Integrity is Maintained or Improved Outcome: Progressing Goal: Nutritional status is improving Outcome: Progressing Problem: Urinary Incontinence Goal: Perineal skin integrity is maintained or improved Outcome: Progressing [employer] [facility] [place] 08-04-2024 Plan of care note Problem: Knowledge Deficit Goal: Patient/family/caregiver demonstrates understanding of disease process, treatment plan, medications, and discharge instructions Outcome: Progressing Problem: Potential for Compromised Skin Integrity Goal: Skin Integrity is Maintained or Improved Outcome: Progressing Goal: Nutritional status is improving Outcome: Progressing Problem: Urinary Incontinence Goal: Perineal skin integrity is maintained or improved Outcome: Progressing [facility] [place] 08-04-2024 Nurse Note Bedside swallow completed. Pt passed and tolerated well tolerated well. [facility] [place] 08-04-2024 Plan of care note Problem: Knowledge Deficit Goal: Patient/family/caregiver demonstrates understanding of disease process, treatment plan, medications, and discharge instructions Outcome: Progressing Problem: Potential for Compromised Skin Integrity Goal: Skin Integrity is Maintained or Improved Outcome: Progressing Goal: Nutritional status is improving Outcome: Progressing Problem: Urinary Incontinence Goal: Perineal skin integrity is maintained or improved Outcome: Progressing [facility] 08-03-2024 Plan of care note Problem: Knowledge [...] 0842 by Lima Saenz RN Outcome: Progressing [facility] 08-03-2024 Note Formatting of this n ote might be different from the original. Return referral placed to [facility] via Careport per TCC request. Await review and response regarding ability to accept. TCC notified. [facility] 08-03-2024 Note Formatting of this n ote might be different from the original. Return referral placed to [facility] via [facility]port per TCC request. Await review and response regarding ability to accept. TCC notified. [facility] 08-03-2024 Note Return referral plac ed to [facility] via [facility]port per TCC request. Await review and response regarding ability to accept. TCC notified. [facility] 08-03-2024 Note Formatting of this n ote might be different from the original. Pt to ED w N/V/Diarrhea, was Dx w Aspiration pneumonitis. Started on IV ATB's. Called pt's Divine, Fidel, . Pt is from [facility]. Plan on returning. [facility] tasked to send a return referral. [facility] 08-03-2024 Note Formatting of this n ote might be different from the original. Pt to ED w N/V/Diarrhea, was Dx w Aspiration pneumonitis. Started on IV ATB's. Called pt's Dtr, Fidel, . Pt is from [facility]. Plan on returning. [facility] tasked to send a return referral. [facility] [place] 08-03-2024 History and physical note Attending History and Physical Admit Date: 08/03/2024 PCP: Jared Evans MD CHIEF COMPLAINT: vomiting/diarrhea Reason for Admission: aspiration pneumonitis History Obtained From: patient HISTORY OF PRESENT ILLNESS: Mel is a 83 y.o. female with past medical history below who presents with chief complaint listed above.Patient is an 83 y/o female who presented to [facility] early this AM from local [place] for vomiting and diarrhea. Patient reported she [...] Resource Strain: Low Risk (06/20/2024) Received from [facility] Overall Financial Resource Strain (CARDIA) [...] min Stress: Patient Unable To Answer (08/03/2024) [facility] [place] [facility] [employer] - Occupational Stress Questionnaire Feeling of Stress : Patient unable to answer Social Connections: Unknown (08/03/2024) Social Connection and Isolation Panel [NHANES] Frequency of Communication with Friends and Family: Patient unable to answer Frequency of Social Gatherings with Friends and Family: Patient unable to answer Attends Church Services: Patient unable to answer Active Member of Clubs or Organizations: Patient unable to answer Attends Club or Organization Meetings: Never Marital Status: Patient unable to answer Recent Concern: Social Connections - Moderately Isolated (06/20/2024) Received from [facility] Social Connection and Isolation Panel [NHANES] Frequency of Communication with Friends and Family: More than three times a week Frequency of Social Gatherings with Friends and Family: Once a week Attends Church Services: More than 4 times per year [...] mgmt was pursued: - inpatient admission to [facility] tele - check stool studies and cdiff, [...] - DO NOT do CPR, intubation] [_] [DNR-TRAINING AND QUALITY MANAGER - Comfort care only] [_] DNR form [...] Shivani Dimas PA-C Division of Hospitalist Medicine [facility] Cosigned by Abbi Long DO at 08/03/2024 [...] sounds present no guarding or regular rigidity [employer] Work Phone: 08-03-2024 Note [employer] [facility] 08-03-2024 History and physical note Attending History and Physical Admit Date: 08/03/2024 PCP: Jared Evans MD CHIEF COMPLAINT: vomiting/diarrhea Reason for Admission: aspiration pneumonitis History Obtained From: patient HISTORY OF PRESENT ILLNESS: Mel is a 83 y.o. female with past medical history below who presents with chief complaint listed above.Patient is an 83 y/o female who presented to [place] [facility] early this AM from local [place] for vomiting and diarrhea. Patient reported she [...] Resource Strain: Low Risk (06/20/2024) Received from [facility] Overall Financial Resource Strain (CARDIA) [...] min Stress: Patient Unable To Answer (08/03/2024) [facility] [place] [facility] [employer] [employer] - Occupational Stress Questionnaire Feeling of Stress : Patient unable to answer Social Connections: Unknown (08/03/2024) Social Connection and Isolation Panel [NHANES] Frequency of Communication with Friends and Family: Patient unable to answer Frequency of Social Gatherings with Friends and Family: Patient unable to answer Attends Church Services: Patient unable to answer Active Member of Clubs or Organizations: Patient unable to answer Attends Club or Organization Meetings: Never Marital Status: Patient unable to answer Recent Concern: Social Connections - Moderately Isolated (06/20/2024) Received from [facility] Social Connection and Isolation Panel [NHANES] Frequency of Communication with Friends and Family: More than three times a week Frequency of Social Gatherings with Friends and Family: Once a week Attends Church Services: More than 4 times per year [...] mgmt was pursued: - inpatient admission to [facility] tele - check stool studies and cdiff, [...] - DO NOT do CPR, intubation] [_] [DNR-TRAINING AND QUALITY MANAGER - Comfort care only] [_] DNR form [...] Shivani Dimas PA-C Division of Hospitalist Medicine [facility] Cosigned by Abbi Long DO at 08/03/2024 [...] or regular rigidity documented in this encounter [facility] 08-03-2024 Plan of care note Problem: Potential for Compromised Skin Integrity Goal: Skin Integrity is Maintained or Improved 08/03/2024 0842 by Lima Saenz RN Outcome: Progressing 08/03/2024 0842 by Lima Saenz RN Outcome: Progressing Problem: Potential for Compromised Skin Integrity Goal: Nutritional status is improving 08/03/2024 0842 by Lima Saenz RN Outcome: Progressing 08/03/2024 0842 by Lima Saenz RN Outcome: Progressing [facility] [place] 08-03-2024 Plan of care note Problem: Knowledge Deficit Goal: Patient/family/caregiver demonstrates understanding of disease process, treatment plan, medications, and discharge instructions Outcome: Progressing Problem: Potential for Compromised Skin Integrity Goal: Skin Integrity is Maintained or Improved Outcome: Progressing [facility] [place] 08-03-2024 Emergency department Note Pt placed in [facility] [place] 08-03-2024 Emergency department Note Pt placed in [...] who presents to the emergency department from [facility] for acute onset nausea/vomiting/diarrhea x 3 episodes that began 45 minutes prior to arrival. No blood in emesis or diarrhea. Given single dose of Zofran by long-term staff following first episode but subsequently soon [...] 45 minutes prior to ED transport for long-term. assisted reports a second resident with similar symptoms earlier today. No known flu or COVID exposures. Patient denying other flu or COVID symptoms such as headache, myalgias, fevers, congestion, cough. Nursing Notes were reviewed. Limitations to history: None Outside historians: assisted staff (Jabari) REVIEW OF SYSTEMS Review of [...] Resource Strain: Low Risk (06/20/2024) Received from [facility] Overall Financial Resource Strain (CARDIA) Difficulty of Paying Living Expenses: Not very hard Food Insecurity: No Food Insecurity (07/09/2024) Received from [facility] Hunger Vital Sign Worried About Running Out of Food in the Last Year: Never true Ran Out of Food in the Last Year: Never true Transportation Needs: No Transportation Needs (07/09/2024) Received from [facility] PRAPARE - Transportation Lack of Transportation (Medical): No Lack of Transportation (Non-Medical): No Physical Activity: Inactive (04/04/2024) Exercise Vital Sign Days of Exercise per Week: 0 days Minutes of Exercise per Session: 0 min Stress: No Stress Concern Present (06/19/2024) Received from [facility] [place] [facility] - Occupational Stress Questionnaire Feeling of Stress : Not at all Social Connections: Moderately Isolated (06/20/2024) Received from [facility] Social Connection and Isolation Panel [NHANES] Frequency of Communication with Friends and Family: More than three times a week Frequency of Social Gatherings with Friends and Family: Once a week Attends Church Services: More than 4 times per year Active Member of Clubs or Organizations: No Attends Club or Organization Meetings: Never Marital Status: Intimate Partner Violence: Not At Risk (06/19/2024) Received from [facility] Domestic Abuse Assessment Do you feel safe in your relationships at home?: Yes Physical Abuse: Denies Verbal Abuse: Denies Housing Stability: Low Risk (07/09/2024) Received from [facility] Housing Stability Vital Sign Unable to [...] In compliance with this authorization, please visit www.fda.gov/media/389452/download or www.fda.gov/media/183912/download to access the applicable information sheets. LIPASE [...] who presents to the emergency department from [facility] for acute onset nausea/vomiting/diarrhea x 3 episodes that began 45 minutes prior to arrival. No blood in emesis or diarrhea. Given single dose of Zofran by long-term staff following first episode of emesis but [...] 45 minutes prior to ED transport for long-term. assisted reports a second resident with similar symptoms [...] baseline. Patient admitted to medical service at [facility] under Dr. Parrish. ED Medications managed: [...] IMPRESSION 1. Aspiration pneumonitis (CMS/HCC) ([facility]) 2. Vomiting and diarrhea 3. LORENZA (acute kidney injury) ([facility]) DISPOSITION Observation 08/03/2024 04:20:39 AM [...] DO 08/03/24 0422 documented in this encounter [facility] 08-03-[address] and ED xray notified that patient is ready [facility] 08-03-2024 Physician Emergency department Note EMERGENCY DEPARTMENT [...] who presents to the emergency department from [facility] for acute onset nausea/vomiting/diarrhea x 3 episodes that began 45 minutes prior to arrival. No blood in emesis or diarrhea. Given single dose of Zofran by long-term staff following first episode but subsequently soon [...] 45 minutes prior to ED transport for long-term. assisted reports a second resident with similar symptoms earlier today. No known flu or COVID exposures. Patient denying other flu or COVID symptoms such as headache, myalgias, fevers, congestion, cough. Nursing Notes were reviewed. Limitations to history: None Outside historians: assisted staff (Jabari) REVIEW OF SYSTEMS Review of [...] Resource Strain: Low Risk (06/20/2024) Received from [facility] Overall Financial Resource Strain (CARDIA) Difficulty of Paying Living Expenses: Not very hard Food Insecurity: No Food Insecurity (07/09/2024) Received from [facility] Hunger Vital Sign Worried About Running Out of Food in the Last Year: Never true Ran Out of Food in the Last Year: Never true Transportation Needs: No Transportation Needs (07/09/2024) Received from [facility] PRAPARE - Transportation Lack of Transportation (Medical): No Lack of Transportation (Non-Medical): No Physical Activity: Inactive (04/04/2024) Exercise Vital Sign Days of Exercise per Week: 0 days Minutes of Exercise per Session: 0 min Stress: No Stress Concern Present (06/19/2024) Received from [facility] [place] [facility] [employer] - Occupational Stress Questionnaire Feeling of Stress : Not at all Social Connections: Moderately Isolated (06/20/2024) [facility] Social Connection and Isolation Panel [NHANES] Frequency of Communication with Friends and Family: More than three times a week Frequency of Social Gatherings with Friends and Family: Once a week Attends Church Services: More than 4 times per year Active Member of Clubs or Organizations: No Attends Club or Organization Meetings: Never Marital Status: Intimate Partner Violence: Not At Risk (06/19/2024) Received from [facility] Abuse Assessment Do you feel safe in your relationships at home?: Yes Physical Abuse: Denies Verbal Abuse: Denies Housing Stability: Low Risk (07/09/2024) Received from [facility] Housing Stability Vital Sign Unable to [...] 3. No bowel dilatation Report Dictated on [employer] Electronically Signed By: Ming Fry MD Electronically Signed Date/Time: 08/03/2024 4:05 AM EST XR chest 1 view Final Result No acute abnormality Report Dictated on [employer] Electronically Signed By: Ming Fry MD Electronically [...] In compliance with this authorization, please visit www.fda.gov/media/151521/download or www.fda.gov/media/306147/download to access the applicable information sheets. LIPASE [...] who presents to the emergency department from [facility] for acute onset nausea/vomiting/diarrhea x 3 episodes that began 45 minutes prior to arrival. No blood in emesis or diarrhea. Given single dose of Zofran by long-term staff following first episode of emesis but [...] 45 minutes prior to ED transport for long-term. assisted reports a second resident with similar symptoms [...] baseline. Patient admitted to medical service at [facility] under Dr. Parrish. ED Medications managed: [...] IMPRESSION 1. Aspiration pneumonitis (CMS/HCC) ([facility]) 2. Vomiting and diarrhea 3. LORENZA (acute kidney injury) ([facility]) DISPOSITION Observation 08/03/2024 04:20:39 AM [...] Medicine Provider Mariana King DO 08/03/24 0422 [facility] [place] 08-01-2024 Instructions Savana Lopez MD - 08/01/2024 1:06 PM EST - Continue Pred forte 4x / day right eye - Stop Cipro - Stop Brimonidine - Continue erythromycin antibiotic ointment as needed - Continue Atropine daily RIGHT eye - Continue Timolol 2x / day RIGHT EYE documented in this encounter [facility] 08-01-2024 Note HNO ID: [id number] Author: SAVANA LOPEZ MD Service: ? 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 [facility] 08-01-2024 History of Present illness Narrative [...] choroidals (not yet appositional) - Evaluated at [facility] 07/12/24 with intense nausea and multiple episodes [...] to HTN (SBP 199/99 at presentation to [place]) and anticoagulation that led to angle closure [...] its relevant components. documented in this encounter [facility] 07-30-2024 Note HNO ID: [id number] Author: JOHN PHELAN MD Service: ? Author [...] agree with all of its relevant components. [facility] 07-30-2024 Note HNO ID: [id number] Author: JONH PHELAN MD Service: ? Author Type: Fellow [...] agree with all of its relevant components. [facility] 07-27-2024 Instructions Nicolas Sahu MD - [...] day Ciprofloxacin (flores cap) 4x daily Atropine (manager credit risk) 1x daily Continue timolol (yellow cap) 2x [...] C Trouble breathing Contact Dr. Savana Lopez [phone] from 8am-5pm During non-business hours, please call [phone] or ext [phone] and ask for the eye doctor production team advisor. documented in this encounter [facility] 07-27-2024 Note HNO ID: [id number] Author: NICOLAS SAHU MD Service: ? Author [...] scheduled Nicolas Sahu MD Vitreoretinal Surgery Fellow [facility] 07-27-2024 History of Present illness Narrative [...] Vitreoretinal Surgery Fellow documented in this encounter [facility] 07-27-2024 Note HNO ID: [id number] Author: MIKHAIL NICHOLS APRN.PAPER COLORER Service: ? Author Type: Nurse Apparel Rental Clerk Type: Anesthesia Procedure Notes Filed: 07/27/2024 11:25 Note Text: ANESTHESIOLOGY PROCEDURE NOTE Airway General Information Procedure Start Time/Medication Administration: 07/27/2024 11:21 AM Procedure End Time: 07/27/2024 11:24 AM Staffing Anesthesiologist: Robinson Brunner MD PAPER COLORER: Mikhail Nichols APRN.PAPER COLORER Performed by: anesthesiologist and PAPER COLORER Indications and Patient Condition Indications for airway management: anesthesia Preoxygenated: yes Patient position: sniffing Method: asleep Final Airway Details Final airway type: supraglottic airway Number of attempts at approach: 1 Final Supraglottic Airway: LMA Classic Size 4 Seal Adequate: yes Failed airway: no Unrecognized esophageal intubation: no SIGNATURE: Mikhail Nichols APRN.PAPER COLORER PATIENT NAME: Mel Castillo DATE: July 27, 2024 TIME: 11:24 AM CSN: [id number] [facility] 07-24-2024 Note Date of Procedure 07/23/2024. Pipeline Technician Information Hot Tar Roofer: WESLEY. Start time: 10:44 AM. No view. In wheelchair. Unable to get low enough for photo in downgaze without discomfort. Notes Hazy view, VH; choroidals; possible RD [facility] 07-24-2024 Note Date of Procedure 07/23/2024. Pipeline Technician Information STEWART Donovan CDMARVIN 07/23/2024 11:24 AM [...] 20mg - Decrease atropine daily right eye (manager credit risk) - Continue prednisolone QID right eye (pink [...] than 30 days before your surgery. My agency service coordinator will be contacting you to schedule this appointment. Your exact time of surgery will not be determined until the day before surgery. My agency service coordinator will call you the day before your surgery to advise you what time to arrive at the Surgery Pavilion on the first floor at the [facility]. My agency service coordinator is Gaston, her number is [phone] Please do no wear contact lenses. We [...] fellow. It will be at the [facility] on the 2nd floor. We will [...] Regine Gan in the Pre-anesthesia Consultation Clinic ([phone]) to get instructions on their use before [...] call Regine Gan or a Pre-Anesthesia Testing presentation team member at [phone]. documented in this encounter [facility] 07-23-2024 Note HNO ID: [id number] Author: SAVANA LOPEZ MD Service: ? 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 [facility] 07-23-2024 History of Present illness Narrative [...] choroidals (not yet appositional) - Evaluated at [facility] 07/12/24 with intense nausea and multiple episodes [...] to HTN (SBP 199/99 at presentation to [place]) and anticoagulation that led to angle closure [...] its relevant components. documented in this encounter [facility] 07-18-2024 Note HNO ID: [id number] Author: JACI JUAREZ, RADHA Service: Nursing Author Type: Registered Nurse Type: Progress Notes Filed: 07/18/2024 14:08 Note Text: Report given to nurse at [facility]. Transport running behind schedule. [facility] 07-16-2024 Note HNO ID: [id number] Author: MICHAEL SOARES MD Service: Ophthalmology Author Type: Resident Type: Plan of Care Filed: 07/16/2024 21:02 Note Text: Patient evaluated today at [facility] by retina attending Dr. Lopez. Assessment/plan [...] choroidals (not yet appositional) - Evaluated at [facility] 07/12/24 with intense nausea and multiple episodes [...] be admitted for this but may need senior care facility due to limited vision in her monocular eye; she has a very poor prognosis; there is no guarantee surgery will improve her vision but need to wait for any possible surgery for more liquefaction; maybe could do 07/31/24? - I will see her in 1 week for repeat B-scan OD / Optos OD" [facility] 07-16-2024 Note HNO ID: [id number] Author: ALAINA TIPTON RN Service: ? Author [...] Doctor Josep, on the division, and aware. [facility] 07-16-2024 Note HNO ID: [id number] Author: TRACEY NANCE RN Service: Care Management Author Type: Registered Nurse Type: Care Mgt Progress Note Filed: 07/16/2024 16:49 Note Text: CARE MANAGEMENT PROGRESS NOTE SERVICE DATE: 07/16/2024 SERVICE TIME: 1:04 PM LOS: 9 days Post-Acute Discharge Planning Patient Goal(s): Increase strength [place] of Choice Explained: Discharge Planning Participant(s): Patient/Family Comments: Anticipated # of Days Until Discharge: 0 Transport at Discharge: Needs Prior to Discharge: Needs Prior to Discharge: OT/PT Evaluation Post-Acute Discharge Plan: Discharge to [facility] per [facility]OC. Await updated PT for pre cert initiation. SIGNATURE: Tracey Nance RN PATIENT NAME: Mel Castillo DATE: July 16, 2024 TIME: 1:04 PM [facility] 07-16-2024 Note Date of Procedure 07/16/2024. Pipeline Technician Information Hot Tar Roofer: Arin Vital. Start time: 8:56 AM. Stop time: 8:56 AM. Notes OD only; Hard view 360 hemorrhagic choroidals [facility] 07-16-2024 Note Date of Procedure 07/16/2024. Pipeline Technician Information STEWART Donovan 07/16/2024 9:34 AM . [...] choroidals (not yet appositional) - Evaluated at [facility] 07/12/24 with intense nausea and multiple episodes [...] be admitted for this but may need senior care facility due to limited vision in her [...] its relevant components. documented in this encounter [facility] 07-16-2024 Note HNO ID: [id number] Author: SAVANA LOPEZ MD Service: ? Author [...] choroidals (not yet appositional) - Evaluated at [facility] 07/12/24 with intense nausea and multiple episodes [...] to HTN (SBP 199/99 at presentation to [place]) and anticoagulation that led to angle closure [...] be admitted for this but may need senior care facility due to limited vision in her [...] of its relev (more content not included)... [facility] 07-16-2024 Note HNO ID: [id number] Author: BRIANA PRITCHARD MD Service: General Internal Medicine Author Type: Physician Type: Progress Notes Filed: 07/16/2024 14:26 Note Text: Internal Medicine - Dae Chaudhry Progress Note Patient Name: Mel Castillo Patient Location: [place] [address]/[id number] Admission Date: 07/07/2024 Length of Stay: 9 Primary Service: DAE Chaudhry Staff: Briana Pritchard MD Primary Service: Dae Chaudhry INTERVAL HISTORY: - No acute events overnight. Bradycardic to 50s overnight but this AM HDS and afebrile - This AM seen by ophthalmology at [facility] Optho appointment Objective MEDICATIONS: Current Facility-Administered Medications [...] Drain Duration External Collection Device 07/15/24 1000 [facility] <1 day Intake/Output 07/12/24 0700 - [...] PMH of COPD (more content not included)... [facility] 07-15-2024 Note HNO ID: [id number] Author: OTILIO GERBER MD Service: Ophthalmology Author [...] to HTN (SBP 199/99 at presentation to [place]) that caused angle closure and elevated IOP [...] BRING PATIENT DOWN FOR FOLLOW UP AT [facility] - Post-op precautions reviewed, including: Signs and symptoms of endophthalmitis, and retinal detachment warning signs reviewed, including increasing floaters, flashes or changes in peripheral vision. [facility] 07-15-2024 Note HNO ID: [id number] Author: BRIANA PRITCHARD MD Service: General Internal Medicine Author Type: Physician Type: Progress Notes Filed: 07/15/2024 12:59 Note Text: Internal Medicine - Dae Chaudhry Progress Note Patient Name: Mel Castillo Patient Location: [place] [address] Admission Date: 07/07/2024 Length of Stay: 8 [...] 9.1 9.3 9.3 (more content not included)... [facility] 07-14-2024 Note HNO ID: [id number] Author: BRIANA PRITCHARD MD Service: Hospital Medicine [...] Castillo is a (more content not included)... [facility] 07-14-2024 Note HNO ID: [id number] Author: NICOLAS SAHU MD Service: Ophthalmology Author [...] to HTN (SBP 199/99 at presentation to [place]) that caused angle closure and elevated IOP [...] vision. Nicolas Sahu MD Vitreoretinal Surgery Fellow [facility] 07-13-2024 Note HNO ID: [id number] Author: MARCIA MARTINS APRN.PAPER COLORER Service: ? Author Type: Nurse Apparel Rental Clerk Type: Anesthesia Procedure Notes Filed: 07/13/2024 12:43 Note Text: ANESTHESIOLOGY PROCEDURE NOTE Airway General Information Procedure Start Time/Medication Administration: 07/13/2024 12:28 PM Procedure End Time: 07/13/2024 12:42 PM Patient location during procedure: OR Timeout Performed Pre-procedure: timeout performed Consent Obtained: Yes Patient identity confirmed: arm alena, care presentation team member and patient Staffing PAPER COLORER: Marcia Martins APRN.PAPER COLORER Performed by: CARIE Indications and Patient Condition Indications for airway management: anesthesia Preoxygenated: yes anesthesia circuit Method: sleep Difficult Mask: No Final Airway Details Final airway type: supraglottic airway Number of attempts at approach: 1 Final Supraglottic Airway: Supraglottic airway: ambu auraonce. Size 4 Seal Adequate: yes Failed airway: no Unrecognized esophageal intubation: no Airway not difficult Comments atraumatic SIGNATURE: Marcia Martins APRN.PAPER COLORER PATIENT NAME: Mel Castillo DATE: July 13, 2024 TIME: 12:42 PM CSN: [id number] [facility] 07-13-2024 Note HNO ID: [id number] Author: FELICIA LEVY MD Service: General Internal [...] of vision now s/p laser iridotomy at [place] then trasnferred to [facility] [...] mg ORAL DAILY (more content not included)... [facility] 07-12-2024 Note HNO ID: [id number] Author: TRACEY NANCE RN Service: Care Management Author Type: Registered Nurse Type: Care Mgt Progress Note Filed: 07/12/2024 16:50 Note Text: CARE MANAGEMENT PROGRESS NOTE SERVICE DATE: 07/12/2024 SERVICE TIME: 4:46 PM LOS: 5 days Post-Acute Discharge Planning Patient Goal(s): Increase strength [place] of Choice Explained: Discharge Planning Participant(s): Patient/Family Comments: Anticipated # of Days Until Discharge: 0 Transport at Discharge: Needs Prior to Discharge: Post-Acute Discharge Plan: Await SNF choices spoke w/ daughter in law Fidel Garcia sent to [facility] yesterday. This CM reached out to [facility] via email for choices. Daughter In law cannot recall selections. covering CM will need to reach out to [facility] tomorrow for selections that were emailed to her. SIGNATURE: Tracey Nance RN PATIENT NAME: Mel Castillo DATE: July 12, 2024 TIME: 4:46 PM [facility] 07-12-2024 Note Date of Procedure 07/12/2024. Pipeline Technician Information CHAR Veliz ROUB 07/12/2024 12:15 PM . Notes B scan OD: From wheelchair. Patient vomiting during this visit. Best images possible. 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 Possible increased height maximum now at 12:00 measuring 10.0 mm. 2) Not able to assess for mobility today due to patient discomfort 3) SRF over choroidals in three quadrants. [facility] 07-12-2024 Note Date of Procedure 07/12/2024. Pipeline Technician Information Hot Tar Roofer: JACQUELINE. Imaging Comments: Limited exam due to patient discomfort-best images possible . Notes Worsening choroid detachments [facility] 07-12-2024 Note HNO ID: [id number] Author: THOMAS SCHMITZ MD Service: ? Author [...] choroidals (not yet appositional) - Evaluated at [facility] 07/12/24 with intense nausea and multiple episodes [...] to HTN (SBP 199/99 at presentation to [place]) that caused angle closure and elevated IOP [...] Resident, PGY-[address] Phelan [facility] 07-12-2024 History of Present illness Narrative [...] choroidals (not yet appositional) - Evaluated at [facility] 07/12/24 with intense nausea and multiple episodes [...] to HTN (SBP 199/99 at presentation to [place]) that caused angle closure and elevated IOP [...] with Dr. Phelan documented in this encounter [facility] 07-12-2024 Note HNO ID: [id number] Author: FELICIA LEVY MD Service: General Internal [...] of vision now s/p laser iridotomy at [place] then trasnferred to [facility] [...] possible dispo to SNF or home with [facility] (challenging given multiple daily eye drops and [...] ORAL BID HYDROmorpho (more content not included)... [facility] 07-11-2024 Note HNO ID: [id number] Author: FELICIA LEVY MD Service: General Internal [...] of vision now s/p laser iridotomy at [place] then trasnferred to [facility] [...] Note Patient Name: Mel Castillo [address] Admission Date: 07/07/2024 Length of Stay: [...] H PRN AL (more content not included)... [facility] 07-10-2024 Note HNO ID: [id number] Author: FELICIA LEVY MD Service: General Internal [...] of vision now s/p laser iridotomy at [place] then trasnferred to [facility] [...] - Dae Chaudhry Progress Note Patient Name: eMl Castillo Patient Location: 60 [id number] Admission Date: [...] Range in last (more content not included)... [facility] 07-09-2024 Note HNO ID: [id number] Author: TRACEY NANCE RN Service: Care Management [...] Relation: Other Admission Status: Inpatient Insurance Provider: [facility] MEDICARE PPO Discharge Planning requested by: Per Department Practice Potential Transition Plans Home Care Advance Directives Current Advance Directive: Health Care Power of Systems Integration Advisor In Chart: Yes Up To Date and Valid: Yes Current Living Arrangements and Support Lives with: Alone Type of Residence: Mobile Home Support: Friends/neighbors, Family members How do you manage to accomplish the following: Independent: Ambulation;Bathe/Shower;Dress;Angélica g to the bathroom Needs Assistance: Meals/Meal Prep;Medication Management;Transportation to appointments/community Current Services/Equipment Discharge Planning Patient Goal(s): Increase strength [place] of Choice Explained: [place] of Choice Given: Yes Level of Care Discussed: Home Care Are you interested in bedside delivery of your medications? Yes Discharge Planning Participant(s): Caregiver;Family Patient/Family Comments: Fidel Hdez (Other) Caregiver Assessment: Caregiver is ready, willing and able to meet the patient's needs as recommended by the inter-professional team: (friends) Transport at Discharge: Transportation Arrangements: Car Destination: [address] [place] [id number] Needs Prior to Discharge: Post-Acute Discharge Plan: Anticipate DC home with [facility] 24-48 hours. HC referrals placed . Await OT evaluation. Patient lives alone in trailer , There are 4 steps to entrance, Using rolator prior to admission. Patient independent with ADL and assist with iADL prior to admission.Patient receives meals on wheels. Family transport to appointments and can provide counseling department chair assist. Family transport home. This CM spoke [...] medical plans and possible future surgery. SIGNATURE: Trcaey Nance RN PATIENT NAME: Mel Castillo DATE: July 09, 2024 TIME: 4:07 PM [facility] 07-09-2024 Note HNO ID: [id number] Author: NADIA VIDAL ? Service: Pharmacy Author Type: Modern Dancer Type: Plan of Care Filed: 07/09/2024 12:31 Note Text: Insurance investigation completed Patient has active prescription insurance: Yes - Patient's insurance is in-network with [facility] Insurance loaded into [place]: Yes Test claim was completed to verify insurance is active: Successful Any questions, please reach out to your medication patient access. [facility] 07-09-2024 Note HNO ID: [id number] Author: GISSELL POPE RPh Service: Pharmacy Author Type: Pharmacist Type: Plan of Care Filed: 07/09/2024 12:32 Note Text: PHARMACY MEDICATION REVIEW Patient Name: Mel Castillo : 1940 The following medications were updated within the HEALTH PHYSICS TECHNICIAN medication list: Medications ADDED to HEALTH PHYSICS TECHNICIAN medication list Furosemide 40 mg prn swelling Medications CHANGED on HEALTH PHYSICS TECHNICIAN medication list Lisinopril 10 mg changed to 40 mg Increased from 5 mg daily to 40 mg daily on last hospital discharge Medications REMOVED from HEALTH PHYSICS TECHNICIAN medication list Albuterol HFA PRN Lidocaine 4% [...] Yes Completed by: Gissell Pope RPh All HEALTH PHYSICS TECHNICIAN medications addressed by LIP Patient interested in Bedside Delivery Services or using [facility] OP Pharmacy at discharge? Yes. Discharge Pharmacy Updated Preferred outpatient pharmacy: [id number] [place] [address] [address] [facility] [phone] [facility] Allergies: Percocet [Oxycodone* Itching [...] Inject 0.7 mL subcutaneously every 12 hours. ydplimyogmh-lxwbryszg-xbeovdpt (TRELEGY ELLIPTA) 100-62.5-25 mcg inhalation powder 07/06/2024 [...] Drop (MYDRIACYL) None recorded 1 Gissell Pope [facility] 07/09/2024 [facility] 07-09-2024 Note HNO ID: [id number] Author: OTLIIO GERBER MD Service: ? Author Type: Resident [...] to HTN (SBP 199/99 at presentation to [place]) that caused angle closure and elevated IOP [...] Follow up with Dr. Lopez Monday 07/16 [facility] eye clinic -Can continue anticoagulation -Patient can [...] NLP vision Otilio Gerber MD Ophthalmology Resident [facility] Patient seen and discussed with Dr. Phelan [facility] 07-09-2024 History of Present illness Narrative [...] Follow up with Dr. Lopez Monday 07/16 [facility] eye clinic -Can continue anticoagulation -Patient can [...] NLP vision Otilio Gerber MD Ophthalmology Resident [facility] Patient seen and discussed with Dr. Phelan documented in this encounter [facility] 07-09-2024 Note HNO ID: [id number] Author: FELICIA LEVY MD Service: General Internal [...] of vision now s/p laser iridotomy at [facility] then trasnferred to [facility] [...] Note Patient Name: Mel Castillo Patient Location: [facility] [id number] Admission Date: 07/07/2024 Length of Stay: [...] (ml) -2 350 (more content not included)... [facility] 07-08-2024 Note HNO ID: [id number] Author: FELICIA LEVY MD Service: Hospital Medicine [...] of vision now s/p laser iridotomy at [facility] then trasnferred to [facility] [...] 07/07/24 1853 12 (more content not included)... [facility] 07-07-2024 Note HNO ID: [id number] Author: JARED GILMORE MD Service: ? Author [...] components. Jared Gilmore MD Vitreoretinal Surgery Fellow [facility] 07-07-2024 History of Present illness Narrative [...] with Dr. Gilmore documented in this encounter [facility] 07-07-2024 Note [facility] 07-07-2024 Hospital course Narrative Discharge Summary Hospitalist Discharge Summary eMl Serna Pop : 1940 Admit date: 07/05/2024 [...] now Question: Diet type Answer: Regular 07/05/24 1994 Activity: as tolerated Recommended Outpatient Tests: Disposition: [...] Ellipta 100-62.5-25 MCG/ACT aerosol powder Generic drug: Pdwvcrnyxcv-Qpdrxhwiz-Cjxqex STOP taking these medications albuterol 108 (90 [...] solution Recommended Follow-up: Tre Lombardi MD [address] [facility] [address] [place] [id number] Call in 2 month(s) Need follow up in December 2024 for aneurysm surveillence Complexity of Follow up: [] Moderate Complexity: follow up within 7-14 calendar days (03354) [x] Severe Complexity: follow up within 7 calendar days (00890) - after DC from [facility] Follow up [...] DO Division of Hospitalist Medicine Acute care [facility] 07/07/2024, 11:08 AM documented in this encounter [facility] 07-07-2024 Nurse Note Report called to [facility]. [facility] 07-07-2024 Nurse Note Report called to [facility]. This RN called Protective Services to try and locate pts lost glasses from 07/05/2024. Glasses that match the description are in lost and found. Will attempt to see if glasses are a match. documented in this encounter [facility] 07-07-2024 Note Formatting of this n ote [...] Length of Stay (Days): 0 GMLOS: 2.3 [facility] 07-07-2024 Note Formatting of this n ote might be different from the original. Care Management Progress Note DC plan - Transfer to [facility]. Received message from RN who reports pt has a bed at the [facility] and dc orders to go today and is requesting transportation be set up [facility]. Transportation set up through roundtrip via cot with [employer] for 10:30am. RN, pt and pt's dtr Fidel notified of dc plan and transportation time. No add'l needs for dc noted or identified at this time. Length of Stay (Days): 0 GMLOS: 2.3 [facility] 07-07-2024 Miscellaneous Notes Care Management Progress Note DC plan - Transfer to [facility]. Received message from RN who reports pt has a bed at the [facility] and dc orders to go today and is requesting transportation be set up AIDAN. Transportation set up through roundtrip via cot with [employer] for 10:30am. RN, pt and pt's dtr Fidel notified of dc plan and transportation time. No add'l needs for dc noted or identified at this time. Length of Stay (Days): 0 GMLOS: 2.3 Complicated discharge , live alone, poor vision - PT/OT now ordered- live in mobile home. Consults in progress. Need [facility] to follow - does have pcp , [...] is working on this . With staff. [facility] she is agreeable to it if goes home . [employer] Mel Pop : 1940 Primary Care Physician: Jared Evans MD The patient and/or family/surrogate voluntarily agreed to participate in ACP services. Patient s cognitive capacity: intact Code Status: [ ] [FULL CODE - Continue all advanced life support: CPR,intubation,invasive procedures] [ X ] [DNR-CCA - DO NOT do CPR, intubation] [_] [DNR-TRAINING AND QUALITY MANAGER - Comfort care only] [_] DNR form [was/was not] signed Summary of discussion: The patient health care POA/ surrogate is the following: Fidel STAPLETON ([facility]) I answered all the patient/family questions that [...] and/or family/surrogate. Silvio Peres MD [facility] 07/05/2024, 1:18 PM documented in this encounter [facility] 07-07-2024 History of Present illness Narrative Nutrition rescreen completed. Chart reviewed. Patient to be monitored and followed by the diet factory maintenance technician. Images from the original note were not included. PHYSICAL THERAPY [facility] Initial Evaluation Name/MRN: Mel Pop ([id number]) Evaluation Date: 07/06/2024 Date of : 1940 Admission Date: 07/05/2024 4:21 AM Age: 83 y.o. Room/Bed: W3324/W3-324 A Discharge Recommendation: Halfway Facility Equipment Needed: (tbd) Assessment IMPRESSION: The [...] COPD (chronic obstructive pulmonary disease) ([facility]) DVT (deep venous thrombosis) ([facility]) Essential hypertension 03/07/2020 GERD (gastroesophageal reflux disease) Hiatal hernia IBS (irritable bowel syndrome) Pure hypercholesterolemia 03/07/2020 PVD (peripheral vascular disease) ([facility]) Stroke ([facility]) Past Surgical History: Past Surgical [...] vessels of proximal lower extremity ([facility]) 04/14/2024 Peripheral arterial disease ([facility]) 04/03/2024 Immunodeficiency due to conditions classified elsewhere ([facility]) 07/27/2023 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 ([facility]) 07/27/2023 Bilateral pneumonia 06/16/2022 COVID-19 06/16/2022 Hypothyroidism 06/16/2022 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[facility]) 06/16/2022 Cellulitis 05/18/2022 Nicotine use disorder 05/18/2022 Acute venous embolism and thrombosis of deep vessels of proximal end of right lower extremity ([facility]) 04/19/2024 Atrial fibrillation, unspecified type ([facility]) 04/19/2024 Irritable bowel syndrome with diarrhea 03/07/2020 Microscopic hematuria 03/07/2020 Left retinal detachment 03/07/2020 Hyperglycemia 03/07/2020 Osteopenia of left femoral neck 03/07/2020 long-term current use of anticoagulant therapy 03/07/2020 Seasonal allergies 03/07/2020 Chronic renal insufficiency, stage III (moderate) ([facility]) 03/07/2020 Major depression, single episode, in complete remission ([facility]) 03/07/2020 Gastroesophageal reflux disease without esophagitis 03/07/2020 Essential hypertension 03/07/2020 Pure hypercholesterolemia 03/07/2020 Overweight 03/07/2020 Psoriasis 03/07/2020 History of cerebrovascular accident 03/07/2020 Atrial fibrillation ([facility]) 03/07/2020 Chronic obstructive pulmonary disease ([facility]) 03/07/2020 Finger osteomyelitis, right ([facility]) 03/06/2020 Medical Precautions: No active [...] support system of friends and family Active [employer] Supervisor: Prior Level of Function Prior Level of [...] of Care supervision is transferred to a [facility] Therapy Services Physical Therapist. Goals and/or treatment plan was established in collaboration with patient/family/other representatives. Hospitalist Progress Note 07/06/2024 Subjective: Admit Date: 07/05/2024 PCP: Jared Evans MD Room#: W3-[facility] A BRIEF HOSPITAL COURSE: Per admitting [...] COPD (chronic obstructive pulmonary disease) ([facility]) DVT (deep venous thrombosis) ([facility]) Essential hypertension 03/07/2020 GERD (gastroesophageal reflux disease) Hiatal hernia IBS (irritable bowel syndrome) Pure hypercholesterolemia 03/07/2020 PVD (peripheral vascular disease) ([facility]) Stroke ([facility]) LABS: CBC: Recent Labs 07/05/24 [...] DO Division of Hospitalist Medicine Acute care [facility] documented in this encounter [facility] 07-06-2024 Nurse Note This RN called Protective Services to try and locate pts lost glasses from 07/05/2024. Glasses that match the description are in lost and found. Will attempt to see if glasses are a match. [facility] 07-06-2024 Telephone encounter Note TELEPHONE ENCOUNTER 07/06/2024 Patient with recent stroke and admitted to [facility] where she was noted to have elevated IOP with retinal detachment of the right eye by consult furniture upholsterer apprentice. She has a history of RD in [...] optos OU Ryan Elizondo MD Ophthalmology Resident [facility] Work Phone: 07-06-2024 Miscellaneous Notes TELEPHONE ENCOUNTER 07/06/2024 Patient with recent stroke and admitted to [facility] where she was noted to have elevated IOP with retinal detachment of the right eye by consult furniture upholsterer apprentice. She has a history of RD in [...] MD Ophthalmology Resident documented in this encounter [facility] 07-06-2024 Note Formatting of this n [...] is working on this . With staff. [facility] she is agreeable to it if goes home . [facility] 07-06-2024 Note Formatting of this n ote might be different from the original. Complicated discharge , live alone, poor vision - PT/OT now ordered- live in mobile home. Consults in progress. Need [facility] to follow - does have pcp , [...] is working on this . With staff. [facility] she is agreeable to it if goes home . [facility] 07-06-2024 Consult note Formatting of th is [...] referral to a retinal subspecialist at either [facility] or [facility] for repair of retinal detachment right eye (OD). Continue ophthalmic pressure lowering ophthalmic meds right eye (OD) until seen by retinal subspecialist. [facility] Work Phone: 07-06-2024 Consult note Formatting of [...] referral to a retinal subspecialist at either [facility] or [facility] for repair of retinal detachment right eye [...] days. Associated Order(s): Inpatient consult to Endovascular Neurology--[facility] Inpatient consult to Endovascular Neurology--[facility] Consult performed by: Helga Naik, GROOMING ASSISTANT - HAZARDOUS MATERIALS TANKER DRIVER Consult ordered by: Wm Nunes DO Reason [...] COPD (chronic obstructive pulmonary disease) ([facility]), DVT (deep venous thrombosis) ([facility]), Essential hypertension (03/07/2020), GERD (gastroesophageal reflux disease), Hiatal hernia, IBS (irritable bowel syndrome), Pure hypercholesterolemia (03/07/2020), PVD (peripheral vascular disease) ([facility]), and Stroke ([facility]). She has no past medical history of Cancer ([facility]) ([facility]), Cerebral artery occlusion with cerebral infarction ([facility]), CHF (congestive heart failure) ([facility]), Diabetes mellitus ([facility]), Hemodialysis patient ([facility]) ([facility]), blood clots, or MDRO (multiple [...] Name: Mel Pop Patient : 1940 Acct: [id number] Date of Admission: 07/05/2024 Room/Bed: 60/60 PCP: [...] COPD (chronic obstructive pulmonary disease) ([facility]) DVT (deep venous thrombosis) ([facility]) Essential hypertension 03/07/2020 GERD (gastroesophageal reflux disease) Hiatal hernia IBS (irritable bowel syndrome) Pure hypercholesterolemia 03/07/2020 PVD (peripheral vascular disease) ([facility]) Stroke ([facility]) Past Surgical History: Past Surgical [...] Historical Provider, ergocalciferol (Vitamin D2) 1.25 MG (14061 UT) capsule Take 1.25 mg by mouth [...] 5 MG tablet Take as directed by [facility] Anticoagulation Clinic (90 tablets = 90 day supply). Current dose: 5 mg daily. 06/01/24 Ryan Valdez MD Current Hospital Medications: Current Facility-Administered Medications: fentaNYL (Sublimaze) injection 25 mcg, 25 mcg, IntraVENous, Once, Wm Mudrakola, DO labetalol (Normodyne,Trandate) injection 10 mg, 10 mg, IntraVENous, q10 min PRN, Mw Mudrakola, DO sodium chloride 0.9 % bolus [...] , Rfl: ergocalciferol (Vitamin D2) 1.25 MG (06826 UT) capsule, Take 1.25 mg by mouth [...] 5 MG tablet, Take as directed by [facility] Anticoagulation Clinic (90 tablets = 90 [...] motor function: 0=Normal Total: 2 Pre-admission Modified Miner Score: 1 __ 0 No symptoms at [...] 07/05/2024 4:46 AM EST. Report Dictated on [employer] Electronically Signed By: Cirilo Ray DR Electronically [...] this patient's care. documented in this encounter [facility] 07-05-2024 Consult note Formatting of th is [...] drops are started. Will continue to follow. [facility] 07-05-[address] Carlson at bedside. [facility] 07-05-[address] Carlson at [...] to Maritza FRAGA Emergency Department Encounter Location: [facility] EMERGENCY DEPT Patient: Mel Pop [...] 423 ms QTC Interval 418 ms P Butler 0 degrees QRS Butler 37 degrees T Wave Butler 29 degrees [place] Interval 0 ms Troponin, High Sensitivity, Serial, [...] IV. I [place]. Pe[place] [facility] [place] who accepted the admit. Medications [...] Given 07/05/24 0517) I am not the primary school teacher librarian of record. Dr. Nunes is the primary school teacher librarian of record. Final Impression 1. Vision loss [...] MD 07/05/24 1322 documented in this encounter [facility] 07-05-2024 Note Formatting of this n [...] - DO NOT do CPR, intubation] [_] [DNR-TRAINING AND QUALITY MANAGER - Comfort care only] [_] DNR form [...] and/or family/surrogate. 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 History Obtained From: patient and patient's [id number] HISTORY OF PRESENT ILLNESS: Mel is a [...] Resource Strain: Low Risk (06/20/2024) Received from [facility] Overall Financial Resource Strain (CARDIA) Difficulty of Paying Living Expenses: Not very hard Food Insecurity: No Food Insecurity (06/20/2024) Received from [facility] Hunger Vital Sign Worried About Running Out of Food in the Last Year: Never true Ran Out of Food in the Last Year: Never true Transportation Needs: No Transportation Needs (07/02/2024) Received from [facility] SDMI Transportation Source Has lack of transportation kept you from medical appointments or from getting medications?: No Has lack of transportation kept you from meetings, work, or from getting things needed for daily living?: No Physical Activity: Inactive (04/04/2024) Exercise Vital Sign Days of Exercise per Week: 0 days Minutes of Exercise per Session: 0 min Stress: No Stress Concern Present (06/19/2024) Received from [facility] [place] of Occupational Health - Occupational Stress Questionnaire Feeling of Stress : Not at all Social Connections: Moderately Isolated (06/20/2024) Received from [facility] Social Connection and Isolation Panel [NHANES] Frequency of Communication with Friends and Family: More than three times a week Frequency of Social Gatherings with Friends and Family: Once a week Attends Church Services: More than 4 times per year Active Member of Clubs or Organizations: No Attends Club or Organization Meetings: Never Marital Status: Intimate Partner Violence: Not At Risk (06/19/2024) Received from [facility] Domestic Abuse Assessment Do you [...] Housing Stability: Low Risk (06/20/2024) Received from [facility] Housing Stability Vital Sign Unable to Pay [...] the evening. ergocalciferol (Vitamin D2) 1.25 MG (88762 UT) capsule Take 1.25 mg by mouth [...] 5 MG tablet Take as directed by [facility] Anticoagulation Clinic (90 tablets = 90 [...] 07/05/2024 Patient Name: MEL POP : 1940 [facility]#: [id number] Exam Date/Time: 07/05/2024 04:36 Procedure: CT HEAD [...] 07/05/2024 Patient Name: MEL POP [facility] 1940 [id number] Exam Date/Time: 07/05/2024 04:36 Procedure: CT HEAD [...] 07/05/2024 Patient Name: MEL POP : 1940 [facility]#: [id number] Exam Date/Time: 07/05/2024 04:36 Procedure: CT PERFUSION [...] glucose meter Result Date: 07/05/2024 Performed by: [facility], [address] [place] [address] CLIA ID: [id number] Assessment / Plan Discussed management with the [...] Hospitalist Medicine [facility] Dictated using [employer]ly Speaking Medical Version 2.4 Proof read however unrecognized voice recognition errors may have occurred [facility] Work Phone: 07-05-2024 Note [facility] 07-05-2024 History and physical note Attending History and Physical Admit Date: 07/05/2024 PCP: Jared Evans MD CHIEF COMPLAINT: Loss of vision right eye, headache/eye pain, nausea, eye swelling Reason for Admission: 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 History Obtained From: patient and patient's [id number] HISTORY OF PRESENT ILLNESS: Mel is a [...] Resource Strain: Low Risk (06/20/2024) Received from [facility] Overall Financial Resource Strain (CARDIA) Difficulty of Paying Living Expenses: Not very hard Food Insecurity: No Food Insecurity (06/20/2024) Received from [facility] Hunger Vital Sign Worried About Running Out of Food in the Last Year: Never true Ran Out of Food in the Last Year: Never true Transportation Needs: No Transportation Needs (07/02/2024) Received from [facility] SDMI Transportation Source Has lack of transportation kept you from medical appointments or from getting medications?: No Has lack of transportation kept you from meetings, work, or from getting things needed for daily living?: No Physical Activity: Inactive (04/04/2024) Exercise Vital Sign Days of Exercise per Week: 0 days Minutes of Exercise per Session: 0 min Stress: No Stress Concern Present (06/19/2024) Received from [facility] [place] [facility]ational [facility] - Occupational Stress Questionnaire Feeling of Stress : Not at all Social Connections: Moderately Isolated (06/20/2024) Received from [facility] Social Connection and Isolation Panel [NHANES] Frequency of Communication with Friends and Family: More than three times a week Frequency of Social Gatherings with Friends and Family: Once a week Attends Church Services: More than 4 times per year Active Member of Clubs or Organizations: No Attends Club or Organization Meetings: Never Marital Status: Intimate Partner Violence: Not At Risk (06/19/2024) Received from [facility] Domestic Abuse Assessment Do you [...] Housing Stability: Low Risk (06/20/2024) Received from [facility] Housing Stability Vital Sign Unable to Pay [...] the evening. ergocalciferol (Vitamin D2) 1.25 MG (16293 UT) capsule Take 1.25 mg by mouth [...] 5 MG tablet Take as directed by [facility] Anticoagulation Clinic (90 tablets = 90 [...] 07/05/2024 Patient Name: MEL POP : 1940 [facility]#: [id number] Exam Date/Time: 07/05/2024 04:36 Procedure: CT HEAD [...] PERFUSION Result Date: 07/05/2024 Patient Name: MEL PPO : 1940 [id number] Exam Date/Time: 07/05/2024 04:36 Procedure: CT PERFUSION [...] glucose meter Result Date: 07/05/2024 Performed by: [facility], [address] [place] [address] CLIA ID: [id number] Assessment / Plan Discussed management with the [...] Silvio Peres MD Division of Hospitalist Medicine [facility] Dictated using Choozle Version 2.4 Proof read however unrecognized voice recognition errors may have occurred documented in this encounter [facility] 07-05-2024 Emergency department Note Provider notified of patient request for pain meds. [facility] 07-05-2024 Consult note Associated Order (s): [...] drops to be discontinued after 4 days. [facility] 07-05-2024 Consult note Associated Order (s): Inpatient consult to Endovascular Neurology--[facility] Inpatient consult to Endovascular Neurology--[facility] Consult performed by: Helga Naik APRN - [facility] Consult ordered by: Wm Nunes DO [...] COPD (chronic obstructive pulmonary disease) ([facility]), DVT (deep venous thrombosis) ([facility]), Essential hypertension (03/07/2020), GERD (gastroesophageal reflux disease), Hiatal hernia, IBS (irritable bowel syndrome), Pure hypercholesterolemia (03/07/2020), PVD (peripheral vascular disease) ([facility]), and Stroke ([facility]). She has no past medical history of Cancer (CMS/HCC) ([facility]), Cerebral artery occlusion with cerebral infarction ([facility]), CHF (congestive heart failure) ([facility] Diabetes mellitus ([facility]), Hemodialysis patient ([facility]) ([facility]), blood clots, or MDRO (multiple [...] ., . Personal review of: Imaging,Labs,Old Records},.},. [facility] [employer] Work Phone: 07-05-[address] Carlson at bedside [facility] 07-05-2024 Emergency department Note Patient is returning back to room 32 at this time with Jose, Medic. [facility] 07-05-2024 Emergency department Note Pt currently at eye clinic with RADHA Hinkle for emergent eye laser procedure. [facility] 07-05-2024 Note Pt currently at eye clinic with RADHA Hinkle for emergent eye laser procedure. [facility] 07-05-2024 Emergency department Note Pt emergently going to eye clinic. Pt being transported in wheelchair with trauma float RADHA Hinkle and Maritza FRAGA Pt being transported on zoll monitor and acls kit. [facility] 07-05-2024 Emergency department Note Ophthalmology at bedside [facility] 07-05-2024 Emergency department Note Report to Maritza FRAGA [facility] 07-05-2024 Consult note Associated Order (s): IP CONSULT TO STROKE TEAM STROKE TEAM NOTE Patient Name: Mel Pop Patient : 1940 Acct: [id number] Date of Admission: 07/05/2024 Room/Bed: 60/60 PCP: [...] Historical Provider, ergocalciferol (Vitamin D2) 1.25 MG (25618 UT) capsule Take 1.25 mg by mouth [...] EC tablet 07/18/23 Historical Provider, MD Mark Mazariegosta 100-62.5-25 MCG/ACT aerosol powder 05/19/23 Historical Provider, warfarin (Coumadin) 5 MG tablet Take as directed by [facility] Anticoagulation Clinic (90 tablets = 90 [...] , Rfl: ergocalciferol (Vitamin D2) 1.25 MG (69752 UT) capsule, Take 1.25 mg by mouth [...] 5 MG tablet, Take as directed by [facility] Anticoagulation Clinic (90 tablets = 90 [...] motor function: 0=Normal Total: 2 Pre-admission Modified Miner Score: 1 __ 0 No symptoms at [...] to be involved in this patient's care. [place] Phone: 07-05-2024 Physician Emergency department Note Emergency Department Encounter Location: [facility] EMERGENCY DEPT Patient: Mel Pop [...] 423 ms QTC Interval 418 ms P Butler 0 degrees QRS Butler 37 degrees T Wave Butler 29 degrees [place] Interval 0 ms Troponin, High Sensitivity, Serial, [...] IV. I discussed [place]. Peres [place] [facility] [place] who accepted the admit. Medications [...] Given 07/05/24 0517) I am not the primary school teacher librarian of record. Dr. Nunes is the primary school teacher librarian of record. Final Impression 1. Vision loss of right eye 2. Acute intractable headache, unspecified headache type DISPOSITION Observation 07/05/2024 01:21:52 PM (Please note that portions of this note may have been completed with a voice recognition program. Efforts were made to edit the dictations but occasionally words are mis-transcribed.) Jhonatan Hernandez MD [employer] Jhonatan Hernandez MD 07/05/24 1322 [facility] 06-19-2024 Note HNO ID: [id number] Author: JOSE GONZALEZ RPh Service: Pharmacy Author [...] ELLIPTA 100-62.5-25 mcg inhalation powder Generic drug: orawvcrixsc-rnpxskycl-ehxxwlfz VITAMIN C 500 mg tablet Generic drug: [...] as: COUMADIN zinc oxide 20 % ointment [facility] 06-19-2024 Note HNO ID: [id number] Author: ROSLYN ROSE RN Service: Care Management Author Type: Registered Nurse Type: Care Mgt Progress Note Filed: 06/19/2024 13:11 Note Text: CARE MANAGEMENT DISCHARGE NOTE SERVICE DATE: June 19, 2024 SERVICE TIME: 1:10 PM Admission Date: 06/10/2024 LOS: 8 days Discharge Arrangement Discharge Arrangement: Acute Rehabilitation Facility Services Arranged Provider Name: Taylor Patiño [facility] Caregiver Assessment Caregiver is ready, willing and able to meet the patient's needs as recommended by the inter-professional team: Yes Name of Caregiver: Taylor Muir Transportation Arrangements Transportation Arrangements: Ambulance Transportation Agency and Phone #:: [facility] ( [facility] ) [phone] / [phone] Date of Trip: 06/19/24 Time of Trip: 1800 Type of Service: BLS Non-emergency Collections Attorney Location: [facility] Destination: [facility] Financial Care Management Responsibility: None Handoff Communication: Handoff to: Specialty Pesticide Use Medical Coordinator Specialty Pesticide Use Medical Coordinator Name/Phone: Taylor Patiño [facility] Additional Information: Patient has insurance precert and is discharging to [facility] today via [facility] cot at 6:00 PM. Spoke with patient at bedside and son José Miguel via phone who are aware and agreeable. Transfer envelope with chart. Care team aware via [employer] chat. Discharge Information Row Name ED to Hosp-Admission (Current) from 06/10/2024 in [place] [address] NEURO/CARD Rehab Facility Agency [facility] - Taylor Patiño SIGNATURE: Roslyn Rose RN PATIENT NAME: Mel Castillo DATE: June 19, 2024 TIME: 1:10 PM CONTACT #: [phone] [facility] 06-19-2024 Note HNO ID: [id number] Author: DON EDWARDS DO Service: Hospital Medicine Author Type: Physician Type: Progress Notes Filed: 06/19/2024 12:53 Note Text: DEPARTMENT OF HOSPITAL MEDICINE PROGRESS NOTE SERVICE DATE: 06/19/2024 SERVICE TIME: 10:10 AM Hospital Medicine/Primary Attending: Don Edwards DO NIGHT AND WEEKEND COVERAGE: OSSINING COVERAGE: From 7am - 7pm, please call [phone] After 7pm, please call cross cover pager #[phone] Subjective INTERVAL HPI: Pt seen and examined. [...] 22 Gauge -- days Peripheral 06/12/24 0427 [facility] Short Right Forearm 20 Gauge 7 [...] now event with subtherapeutic coumadin. Rehab at [place]. Will need to follow up with neurology [...] -- 06/11/24 0730 vte current [place] 06/11/24 0730 activity - mobilize [place] ([place] VTE Prophylaxis: VTE prophylaxis appropriate Disposition: Acute Rehab Plan of care discussed with: Provider, RN, Patient SIGNATURE: Don Edwards DO PATIENT NAME: Mel Castillo DATE: June 19, 2024 TIME: 10:10 AM etx [id number] [facility] 06-18-2024 Note HNO ID: [id number] Author: ANABEL VEGA, ? Service: Care Management Author Type: ? Type: Care Mgt Progress Note Filed: 06/18/2024 17:18 Note Text: [facility] PRECERT NOTE [employer] MEDICARE PPO approved Inpatient Rehab Facility for [facility] - Taylor Patiño. Precert approved for dates: - 06/26/2024. For any additional questions regarding approvals, transport or care management needs, please contact the CM assigned to this patient in the Treatment Team. SIGNATURE: Anabel Khalil Page DATE: June 18, 2024 TIME: 5:17 PM [facility] 06-18-2024 Note HNO ID: [id number] Author: MARK MINOR DO Service: Hospital Medicine Author Type: Physician Type: Progress Notes Filed: 06/18/2024 16:17 Note Text: DEPARTMENT OF HOSPITAL MEDICINE PROGRESS NOTE SERVICE DATE: 06/18/2024 SERVICE TIME: 4:06 PM Hospital Medicine/Primary Attending: Mark Minor DO NIGHT AND WEEKEND COVERAGE: After 7pm please page [phone] SUBJECTIVE: Patient seen examined at bedside. No [...] now event with subtherapeutic coumadin. Rehab at CT. Will need to follow up with neurology [...] Yes) Chronic atrial (more content not included)... [facility] 06-18-2024 Note HNO ID: [id number] Author: ROSLYN ROSE RN Service: Care Management Author Type: Registered Nurse Type: Care Mgt Progress Note Filed: 06/18/2024 12:32 Note Text: CARE MANAGEMENT PROGRESS NOTE SERVICE DATE: 06/18/2024 SERVICE TIME: 9:01 AM LOS: 7 days Chart reviewed. [facility] Will need precert and cot transport. CM to follow for transitional care planning. ADDENDUM at 10:20 AM- Spoke with patient at bedside and provided update on pending precert. Received message from [facility] that insurance is requesting updated PT/OT evals and notified therapy. SIGNATURE: Roslyn Rose RN PATIENT NAME: Mel Castillo DATE: June 18, 2024 TIME: 9:01 AM PAGER/CONTACT #: [phone] [facility] 06-17-2024 Note HNO ID: [id number] Author: DON EDWARDS DO Service: Hospital Medicine Author Type: Physician Type: Progress Notes Filed: 06/17/2024 13:52 Note Text: DEPARTMENT OF HOSPITAL MEDICINE PROGRESS NOTE SERVICE DATE: 06/17/2024 SERVICE TIME: 11:15 AM Hospital Medicine/Primary Attending: Don Edwards DO NIGHT AND WEEKEND COVERAGE: OSSINING COVERAGE: From 7am - 7pm, please call [phone] After 7pm, please call cross cover pager #[phone] Subjective INTERVAL HPI: Pt seen and examined. [...] 22 Gauge -- days Peripheral 06/12/24 0427 [facility] Short Right Forearm 20 Gauge 5 [...] eliquis. She was seen by therapy and senior care facility was recommended. 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 Rehab at CT. Will need to follow up with neurology [...] -- 11/25/24 0730 vte [place] 06/11/24729 activity - mobilize [place] VTE Prophylaxis: VTE prophylaxis appropriate Disposition: Acute Rehab Plan of care discussed with: Provider, RN, Patient SIGNATURE: Don Edwards DO PATIENT NAME: Mel Castillo DATE: June 17, 2024 TIME: 11:15 AM etx [id number] [facility] 06-16-2024 Note HNO ID: [id number] Author: DON EDWARDS DO Service: Hospital Medicine Author Type: Physician Type: Progress Notes Filed: 06/16/2024 13:06 Note Text: DEPARTMENT OF HOSPITAL MEDICINE PROGRESS NOTE SERVICE DATE: 06/16/2024 SERVICE TIME: 11:00 AM Hospital Medicine/Primary Attending: Don Edwards DO NIGHT AND WEEKEND COVERAGE: OSSINING COVERAGE: From 7am - 7pm, please call [phone] After 7pm, please call cross cover pager #[phone] Subjective INTERVAL HPI: Pt seen and examined. [...] 22 Gauge -- days Peripheral 06/12/24 0427 [facility] Short Right Forearm 20 Gauge 4 days Drain Duration Indwelling Urinary Catheter 06/11/24 1535 [facility] Ceballos 16 Fr 4 days Reviewed lines and needs to be continued: REASONS: Difficulty in obtaining/maintaining access DATA: Diagnostic tests reviewed for today's visit: Most recent labs and imaging results. 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 Rehab at CT. Will need to follow up with neurology [...] -- 06/11/24 0730 vte current [place] 06/11/24 0730 activity - [place] VTE Prophylaxis: VTE prophylaxis appropriate Disposition: Acute Rehab Plan of care discussed with: Provider, RN, Patient SIGNATURE: Don Edwards DO PATIENT NAME: Mel Castillo DATE: June 16, 2024 TIME: 11:00 AM etx [id number] [facility] 06-15-2024 Note HNO ID: [id number] Author: ERA TELLES MD Service: Hospital Medicine [...] on oxygen Plan for acute rehab at [facility] able to accept. Await precert Plan of care discussed with: Provider, RN, Patient. SIGNATURE: Era Telles MD PATIENT NAME: Mel Castillo DATE: June 15, 2024 TIME: 2:40 PM PAGER: [facility] 06-15-2024 Note HNO ID: [id number] Author: ISHAN MELIZA, GROOMING ASSISTANT.HAZARDOUS MATERIALS TANKER DRIVER Service: Urology Author Type: Nurse Practitioner Type: Plan of Care Filed: 06/15/2024 12:16 Note Text: Urology Plan of Care Note RN reached out asking about a void trial today. Notes pt has bloody urine. Pt seen at bedside. Pt eating lunch. Vanessa urine in tubing at this time. Will place PRN irrigation orders if urine is bloody again. Page urology resident production team advisor if urine is grade 4 or higher. [...] on the unit. October06/15/2024 12:11 PM Page production team advisor resident with questions [facility] 06-15-2024 Note HNO ID: [id number] Author: ROSLYN ROSE RN Service: Care Management Author Type: Registered Nurse Type: Care Mgt Progress Note Filed: 06/15/2024 09:38 Note Text: CARE MANAGEMENT PROGRESS NOTE SERVICE DATE: 06/15/2024 SERVICE TIME: 9:36 AM LOS: 4 days Chart reviewed. Insurance precert is pending for [facility]. Will need precert and cot transport. Will place transfer envelope with chart that has signed portable DNR form attached. CM to follow for transitional care planning. SIGNATURE: Roslyn Rose RN PATIENT NAME: Mel Castillo DATE: June 15, 2024 TIME: 9:36 AM PAGER/CONTACT #: [phone] [facility] 06-14-2024 Note HNO ID: [id number] Author: JENNIFER FERNANDEZ RN Service: Nursing Author Type: Registered Nurse Type: Nursing Progress Note Filed: 06/14/2024 17:35 Note Text: 1610: paged urology for voiding trial awaiting response [facility] 06-14-2024 Note HNO ID: [id number] Author: ERA TELLES MD Service: Hospital Medicine [...] on oxygen Plan for acute rehab at [facility] able to accept. Await precert Plan of care discussed with: Provider, RN, Patient. SIGNATURE: Era Telles MD PATIENT NAME: Mel Castillo DATE: June 14, 2024 TIME: 2:47 PM PAGER: [facility] 06-13-2024 Note HNO ID: [id number] Author: EDIE CASTAÑEDA MD Service: Hospital Medicine Author Type: Physician Type: Progress Notes Filed: 06/13/2024 14:18 Note Text: DEPARTMENT OF HOSPITAL MEDICINE Hospital Medicine/Primary Attending: Edie Castañeda MD NIGHT AND WEEKEND COVERAGE: After 7pm please page [phone] MEDICATIONS: Current Facility-Administered Medications Medication Dose Route [...] interatrial septum. Patient sees Dr. Padilla at [facility]. Cardiology saw patient in hospital, recommended Lovenox at discharge for lifelong. 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 Continue heparin drip. Will transition to therapeutic lovenox tonight (discussed patel and affordability with patient, lin (more content not included)... [facility] 06-13-2024 Note HNO ID: [id number] Author: CARLYLE GUZMÁN, RN Service: Care Management Author Type: Registered Nurse Type: Care Mgt Progress Note Filed: 06/13/2024 13:00 Note Text: CARE MANAGEMENT PROGRESS NOTE SERVICE DATE: 06/13/2024 SERVICE TIME: 12:54 PM LOS: 2 days Needs Prior to Discharge: To Be Determined;Precertification;Discha rge Transportation Chart reviewed. HCPOA paperwork sent to admitting and copy placed in patient's chart. Spoke with the patient and CHERYL Stoeks about accepting facilities. Taylor Patiño is FOC. Precert started for Taylor Patiño. Cot transport is on standby. Will to continue to follow for transitional care planning. SIGNATURE: Carlyle Guzmán RN PATIENT NAME: Mel Castillo DATE: June 13, 2024 TIME: 12:54 PM PAGER/CONTACT #: [phone] [facility] 06-12-2024 Note HNO ID: [id number] Author: SHARONA MCDERMOTT MD Service: Hospital Medicine Author Type: Physician Type: Progress Notes Filed: 06/12/2024 17:08 Note Text: DEPARTMENT OF HOSPITAL MEDICINE Hospital Medicine/Primary Attending: Sharona Mcdermott MD NIGHT AND WEEKEND COVERAGE: After 7pm please page [phone] Saw patient at bedside with friend visiting. [...] interatrial septum. Patient sees Dr. Padilla at [facility]. Cardiology saw patient in hospital, recommended [...] COPD Smoker Not (more content not included)... [facility] 06-12-2024 Note HNO ID: [id number] Author: DEBORAH PEACE RN Service: Care Management Author Type: Registered Nurse Type: Care Mgt Progress Note Filed: 06/12/2024 16:10 Note Text: CARE MANAGEMENT PROGRESS NOTE SERVICE DATE: 06/12/2024 SERVICE TIME: 4:09 PM LOS: 1 day [place] of Choice Given: Yes Level of Care Discussed: Inpatient Rehab Facility Financial Disclosure Provided: Yes Provider List: Rehab Facility Provider list within the patient's requested geographic area shared with the patient/family: Yes within: 15 miles of zip code: [address] Quality and resource use metrics shared with the patient that are relevant to the patient's goals of care and treatment preferences:: Yes Spoke with pt about pt/ot recs for acute rehab, pt agreeable to list , Taylor Patiño would be foc but pt would like to discuss acute rehab with her ; referral sent to [facility] SIGNATURE: Deborah Peace RN PATIENT NAME: Mel Castillo DATE: June 12, 2024 TIME: 4:09 PM PAGER/CONTACT #: [phone] [facility] 06-12-2024 Note HNO ID: [id number] Author: ANDREEA KING LSW Service: Care Management Author Type: Chief Dispatcher Service Type: Care Mgt Progress Note Filed: 06/12/2024 [...] 12, 2024 TIME: 3:20 PM PAGER/CONTACT #: [phone] [facility] 06-11-2024 Note HNO ID: [id number] Author: CARLYLE GUZMÁN RN Service: Care Management [...] Home Advance Directives Current Advance Directive: None Tire Mold Engraver Attempted to Assist with AD Completion: Yes [...] General wellness, Be able to go home [place] of Choice Explained: [place] of Choice Given: No Reason Not Given: [...] 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 +PCP, +DME, +RX coverage, family to provide DC transportation. Will to continue to follow for transitional care planning. SIGNATURE: Carlyle Guzmán RN PATIENT NAME: Mel Castillo DATE: June 11, 2024 TIME: 3:41 PM CONTACT #: [phone] [facility] 06-11-2024 Note Spoke with Melany Evans's office and she stated that patient is scheduled in their office tomorrow, 06/12 for INR check. I faxed her out last progress note. I will inactivate patient from our service. [facility] 05-21-2024 History of Present illness Narrative INR reported on by Christin with [facility]. Christin can be reached at [phone] with questions. Images from the original note were not included. [facility] Anticoagulation Management Service ([facility]) Anticoagulation Clinic [address], [address], [place] [address] Subjective TYSON Choi (1940) had INR completed [...] PharmD, BCACP, CACP documented in this encounter [facility] 05-09-2024 History of Present illness Narrative Graciela from [facility] called in results. Images from the original note were not included. [facility] Anticoagulation Management Service ([facility]) Anticoagulation Clinic [address] [place] [address], [address], [place] [phone] Megan Choi (1940) had INR completed by [...] Perez, PharmD, BCPS documented in this encounter [facility] 05-01-2024 History of Present illness Narrative Tia- [facility]- [phone] Images from the original note were not included. [facility] Anticoagulation Management Service ([facility]) Anticoagulation Clinic [address] [place] [address], [address] [place] [address] Subjective HPI Mel (1940) had INR completed [...] 5 mg daily Next INR Check: 05/08/2024 [facility] Patient educated on the following: dietary/lifestyle considerations and Vitamin K content and consistency Patient care coordination completed: N/A Patient given verbal instructions. Patient expressed understanding utilizing the teach back method. Time spent 10 Minutes Won Tipton RN staffed with Chalino Tolbert, BCACP, CACP documented in this encounter [facility] 04-27-2024 Telephone encounter Note Pt requested refill on warfarin 5mg. Sent to [facility]. Receipt confirmed by pharmacy. [facility] 04-27-2024 Miscellaneous Notes Pt requested refill on warfarin 5mg. Sent to [facility]. Receipt confirmed by pharmacy. documented in this encounter [facility] 04-25-2024 History of Present illness Narrative Vascular [...] any significant pain. She is following with [facility] clinic for Warfarin, switched from Eliquis. [...] tablet (5mg) on 04/15 Follow up with [facility] pharmacy for further dosing 04/13/24 Jordin [...] min Stress: No Stress Concern Present (04/04/2024) [facility] [place] [employer] - Occupational Stress Questionnaire Feeling of Stress : Not at all Social Connections: Moderately Isolated (04/04/2024) Social Connection and Isolation Panel [NHANES] Frequency of Communication with Friends and Family: More than three times a week Frequency of Social Gatherings with Friends and Family: More than three times a week Attends Church Services: 1 to 4 times per year [...] Primary PAD (peripheral artery disease) ([facility]) Plan: S/p right venous thrombectomy -Recovering well -Recommend continuing warfarin per [facility] clinic -Continue to elevate as needed. [...] (around 07/26/2024). . documented in this encounter [facility] 04-19-2024 History of Present illness Narrative Graciela with [facility] reports INR on Graciela can be reached at [phone] with any questions. Images from the original note were not included. [facility] Anticoagulation Management Service ([facility]) Anticoagulation Clinic [address] [place] [address], [address], [place] [phone] Subjective TYSON Choi (1940) had INR completed [...] positive findings Mel was instructed to notify [facility] of any unusual bruising or active/uncontrollable bleeding, medication changes within 24 hours, missed doses, dietary changes, illnesses or hospitalizations, and upcoming surgeries. Patient given verbal instructions. Patient expressed understanding utilizing the teach back method. Time spent 15 Minutes JOSE ANGEL Perez, PharmD, BCPS documented in this encounter [facility] 04-14-2024 History of Present illness Narrative Placed new order for POCT INR, [facility] had not received. documented in this encounter [facility] 04-14-2024 Miscellaneous Notes Addended by: PATTY DUGGAN on: 04/16/2024 07:01 AM Modules accepted: Orders Addended by: HARMONY GREY on: 04/16/2024 08:41 AM Modules accepted: Orders documented in this encounter [facility] 04-14-2024 Note Addended by: PATTY DUGGAN on: 04/16/2024 07:01 AM Modules accepted: Orders [facility] 04-14-2024 Note Addended by: HARMONY GREY on: 04/16/2024 08:41 AM Modules accepted: Orders [facility] 04-14-2024 Note Addended by: PATTY DUGGAN on: 04/16/2024 07:01 AM Modules accepted: Orders [facility] 04-14-2024 Note Addended by: HARMONY GREY on: 04/16/2024 08:41 AM Modules accepted: Orders [facility] 04-14-2024 Note Addended by: PATTY DUGGAN on: 04/16/2024 07:01 AM Modules accepted: [facility] 04-14-2024 Note Addended by: HARMONY GREY on: 04/16/2024 08:41 AM Modules accepted: [facility] 04-13-2024 Nurse Note AVS explained. Discharged patient on stable condition. [facility] 04-13-2024 Nurse Note AVS explained. Discharged patient on stable condition. Instructed patient on warfarin dosing, she will take 7.5mg tomorrow, and 5mg Tuesday, and then we will check INR with home care on Tuesday as instructed. NO changes to heparin infusion at this time. documented in this encounter [facility] 04-13-2024 Nurse Note Instructed patient on warfarin dosing, she will take 7.5mg tomorrow, and 5mg Tuesday, and then we will check INR with home care on Tuesday as instructed. [facility] 04-13-2024 Note Formatting of this n ote might be different from the original. Phone conversation with the patient at their request from the [facility] regarding her established home care. Patient was wondering what services were being provided and what expectations to have for [facility]. I explained her current ordered services and she stated she understood. Patient then asked if she could have meals delivered. I explained I would reach out to her licensed social worker here at the hospital for further guidance on resources when she gets home. Secure chat sent to KEESHA Kateil regarding this. [facility] 04-13-2024 Note Formatting of this n ote might be different from the original. Phone conversation with the patient at their request from the [facility] regarding her established home care. Patient was wondering what services were being provided and what expectations to have for HHC. I explained her current ordered services and she stated she understood. Patient then asked if she could have meals delivered. I explained I would reach out to her licensed social worker here at the hospital for further guidance on resources when she gets home. Secure chat sent to KEESHA Kateil regarding this. [facility] 04-13-2024 Miscellaneous Notes Phone conversation with the patient at their request from the [facility] regarding her established home care. Patient was wondering what services were being provided and what expectations to have for HHC. I explained her current ordered services and she stated she understood. Patient then asked if she could have meals delivered. I explained I would reach out to her licensed social worker here at the hospital for further guidance [...] GABRIEL. Await treatment plan and clinical progress. manager it security will continue to follow for transitional care [...] discharge. Await treatment plan and clinical progress. manager it security will continue to follow for transitional care needs for discharge planning. Discharge Milestones and Delays Expected date/time: 04/13/2024 Expected discharge disposition: Home Health Services Discharge Milestones Place discharge order Complete med reconciliation Case mgmt discharge readiness Clinical Stability Diagnostic Workup Teletray Operator Recommendations Facility Choice Selection Imaging Results PT [...] vasc consult" 04/06/2024 Bernie Cutler APRN - HAZARDOUS MATERIALS TANKER DRIVER 04/04/2024 4:04 AM 04/06/2024 Bernie Cutler APRN - HAZARDOUS MATERIALS TANKER DRIVER 04/03/2024 11:17 PM Length of Stay (Days): [...] discharge. Await treatment plan and clinical progress. manager it security will continue to follow for transitional care [...] discharge. Await treatment plan and clinical progress. manager it security will continue to follow for transitional care needs for discharge planning. Discharge Milestones and Delays Expected date/time: 04/11/2024 Expected discharge disposition: Home or Self Care Discharge Milestones Place discharge order Complete med reconciliation Case mgmt discharge readiness Clinical Stability Diagnostic Workup Teletray Operator Recommendations Facility Choice Selection Imaging Results Patient [...] vasc consult" 04/06/2024 Bernie Cutler APRN - HAZARDOUS MATERIALS TANKER DRIVER 04/04/2024 4:04 AM 04/06/2024 Bernie Cutler APRN - HAZARDOUS MATERIALS TANKER DRIVER 04/03/2024 11:17 PM Length of Stay (Days): 7 GMLOS: 4 Images from the original note were not included. Care Management Progress Note Remains on heparin gtt while transitioning to coumadin. Consult Hemology. Pt active with [facility]- will continue services at discharge. Await treatment plan and clinical progress. manager it security will continue to follow for transitional care needs for discharge planning. Discharge Milestones and Delays Expected date/time: 04/10/2024 Expected discharge disposition: Home or Self Care Discharge Milestones Place discharge order Complete med reconciliation Case mgmt discharge readiness Clinical Stability Diagnostic Workup Teletray Operator Recommendations Facility Choice Selection Imaging Results Patient [...] vasc consult" 04/06/2024 Bernie Cutler APRN - HAZARDOUS MATERIALS TANKER DRIVER 04/04/2024 4:04 AM 04/06/2024 Bernie Cutler APRN - HAZARDOUS MATERIALS TANKER DRIVER 04/03/2024 11:17 PM Length of Stay (Days): [...] vasc consult" 04/06/2024 Bernie Cutler APRN - HAZARDOUS MATERIALS TANKER DRIVER 04/04/2024 4:04 AM 04/06/2024 Bernie Cutler APRN - HAZARDOUS MATERIALS TANKER DRIVER 04/03/2024 11:17 PM Length of Stay (Days): 3 GMLOS: 3.1 Patient report called to 4N RN and denies any further questions. Patient resting comfortably and no signs of distress. Per resident patient to lay flat for 2 hours and restart heparin GTT at 1215. Transport notified. SW assisted patient with completion of Health Care Power of Systems Integration Advisor. One copy placed in patient chart, one copy sent to medical records and two copies given to patient. Requested by patient, while at bedside this SW spoke to patient's son via patients phone to explain that HCPOA was being completed by patient. Patients son José Miguel Castillo ([phone]) agreed to be this patients agent on [...] technique was used to place a 5 Danish sheath. A Bentson wire was able to be advanced in the inferior vena cava without difficulty. The 5 Danish sheath was then upsized to a 16 Danish sheath and the penumbra flash suction thrombectomy device was prepared per printing press machinist's instructions. The patient was also given 5000 units of heparin for systemic anticoagulation at this time. The Penumbra device was then inserted through the 16 Danish sheath and a suction thrombectomy was performed [...] device was removed as was the 16 Danish sheath and an 0 silk suture was [...] Blankenship MD Vascular Surgery Date: 04/06/2024 Location: [facility] OR Name: Mel Pop, : 1940, Diagnosis Pre-op Diagnosis * Right leg DVT (HCC) [I82.401] Post-op Diagnosis * Right leg DVT (HCC) [I82.401] Procedures RIGHT LOWER EXTREMITY VENOUS MECHANICAL THROMBECTOMY 43350 - VA PRQ TRANSLUMINAL MECHANICAL THROMBECTOMY VEIN Surgeons * Kristyn Blankenship - Primary Procedure Summary Anesthesia: General ASA: III Estimated Blood Loss: 300 mL Drains: * None in log * Staff: Roller Varnisher: Negrita Rey RN; mAira Burton RN Scrub Person: Linnette Shukla RN [...] vasc consult" 04/06/2024 Bernie Cutler APRN - HAZARDOUS MATERIALS TANKER DRIVER 04/04/2024 4:04 AM 04/06/2024 Bernie Cutler APRN - HAZARDOUS MATERIALS TANKER DRIVER 04/03/2024 11:17 PM Length of Stay (Days): [...] Limits Permission given to speak with patient automotive sales representative/caregiver as indicated: Confirmation of Payer with [...] home alone and indep. [facility] liaison following for continued services. Pt uses walker/cane at baseline. Pt has insurance, PCP and able to obtain meds. Pt's friends help with transportation. No needs antic at discharge. Virginia Rehman RN Start PACC Note Home Health Referral Educated patient on Home Care and services available. Patient offered choice of available HHC and agreeable to SN/PT services with [facility]. Care Types: [...] is noted as yes - consider a STONE HAND evaluation once the patient returns home. START PATIENT REGISTRATION INFORMATION Order Information Order Signing Physician: Robert Vigil MD Service Ordered RN ?: Yes Service Ordered PT ?: Yes Service Ordered OT ?: No Service Ordered ST ?: No Service Ordered STONE HAND?:No Service Ordered PUBLIC RELATIONS DIRECTOR?: No Following Physician: Jared Evans MD Following Physician Overseeing Physician: Jared Evans MD (Required for Residents only) Agreeable to Follow? Yes Date/Time of Call 04/04/24 11:36 AM, Spoke with: Patient is a DEB. Care Coordination Same Day SOC?: No Primary Care Physician: Jared Evans MD Primary Care Physician Primary Care Physician Address: [address] [place] [address] / [facility] [id number] Visit Instructions: N/A Service Discharge Location Type: Home with Home Care Service Facility Name: N/A Service Floor Facility: N/A Service Room No: N/A Demographics Patient Last Name: Jose Alberto Patient First Name: Mel Language/Communication Barrier: none Service Address: [facility] [address] Service City: [place] Service ST: [place] Service ZIP: [address] Service Other phone numbers: Telephone Information: Emergency [...] Caregiver Phone Number: na Caregiver Notes: N/A [employer] List No END PATIENT REGISTRATION INFORMATION Pt [...] intervention. Discharge Date: pending Referral Source-PACC: (Hospital/Unit): [facility] / N4-461/N4-461 B End PACC Note The patient is Moderately Stable - Low risk of patient condition declining or worsening The patient's goals for the shift include safety The clinical goals for the shift include therapeutic aptt Patient is currently active with [facility]. The patients current certification period will on 05/18/24. The patient is currently receiving PT services through the agency. Institutional Asset Manager to continue to follow. ADVANCED CARE PLANNING Mel Pop : 1940 Primary Care Physician: Jared Evans MD The patient and/or family/surrogate voluntarily agreed to participate in ACP services. Patient s cognitive capacity: intact Code Status: [ ] [FULL CODE - Continue all advanced life support: CPR,intubation,invasive procedures] [X] [DNR-CCA - DO NOT do CPR, intubation] [_] [DNR-TRAINING AND QUALITY MANAGER - Comfort care only] [_] DNR form [...] and/or family/surrogate. Pratibha Avelar DO Acute care [facility] 04/04/2024, 5:40 AM The patient is Moderately Stable - Low risk of patient condition declining or worsening The patient's goals for the shift include met The clinical goals for the shift include met Over the shift, the patient did not make progress toward the following goals. Barriers to progression include . Recommendations to address these barriers include . documented in this encounter [facility] 04-13-2024 Note [facility] 04-13-2024 Hospital course Narrative Discharge Summary Mel Pop : 1940 ADMIT DATE: 04/03/2024 DISCHARGE DATE: 04/13/2024 PRIMARY CARE PHYSICIAN: Jared Evans VISIT STATUS: Admission CODE STATUS: DNR-CCA DISCHARGE DIAGNOSES: Principal Problem: Peripheral arterial disease (HCC) Bilateral lower extremity DVTs RLE thrombectomy HOSPITAL COURSE: 83-year-old woman with history of A-fib on Eliquis, tobacco use, hypertension, hyperlipidemia, asthma, hiatal hernia, GERD presented to [facility] on 04/03 with right leg pain, numbness, tingling causing difficulty ambulating. CTA of lower extremity showed severe atherosclerotic disease with bilateral superficial femoral artery occlusion and transferred to [facility]. She underwent venous thrombectomy with vascular surgery and was initiated on warfarin bridging with heparin. [facility] followed and managed bridging anticoagulation. Pt reported feeling improvement from day to day. Though she was concerned that being stuck in the hospital will debilitate her.Her INR was therapeutic on 04/13. [facility] recommended transition to Warfarin alternating 5mg/7.5mg dosing [...] tablet (5mg) on 04/15 Follow up with [facility] pharmacy for further dosing CONTINUE taking these medications albuterol 108 (90 Base) MCG/ACT inhaler ascorbic acid 500 MG tablet Commonly known as: Vitamin C lisinopril 5 MG tablet pantoprazole 40 MG EC tablet Commonly known as: ProtoNix Trelegy Ellipta 100-62.5-25 MCG/ACT aerosol powder Generic drug: Xpdqxeiljle-Nnowmestk-Voewtc STOP taking these medications Eliquis 5 MG tablet Generic drug: apixaban Where to Get Your Medications These medications were sent to [facility] [address] [place] [address], [facility] [address] Hours: Tuesday to Tuesday 10 am to 6 pm oxyCODONE 5 MG immediate release tablet warfarin 5 MG tablet DIET: Adult diet Regular ACTIVITY: No restriction. COMPLEXITY OF FOLLOW UP: [x] Moderate Complexity: follow up within 7-14 calendar days (18542) [] Severe Complexity: follow up within 7 calendar days (19610) FOLLOW UP TESTING, PENDING RESULTS OR REFERRALS AT TRANSITIONAL CARE VISIT: [] Yes [x] No PENDING STUDIES: none DISPOSITION: Home with Home Health Care FACILITY/HOME CARE AGENCY NAME: [facility] Follow up with Kristyn Blankenship MD [address] [place], [place] [id number] Schedule an appointment as soon as possible for a visit [facility] clinic for INR check next week [...] 04/13/2024, 2:20 PM documented in this encounter [facility] 04-13-2024 History of Present illness Narrative Images from the original note were not included. PHYSICAL THERAPY [facility] Treatment Note Name/MRN: Mel Pop ([id number]) Date of : 1940 Age: 83 y.o. [...] 1045 Minutes 13 (Gait) Christin Gu PT [facility] Anticoagulation Management Service ([facility]) Inpatient Warfarin Consult HPI: Mel Pop is a 83 y.o. female admitted on 04/03/2024 for Peripheral arterial disease (HCC). Past Medical History: Diagnosis Date Asthma Essential hypertension 03/07/2020 GERD (gastroesophageal reflux disease) Hiatal hernia Pure hypercholesterolemia 03/07/2020 Patient is newly referred to the [facility] clinic for warfarin management. Pt was [...] PharmD [facility] Consult Service is available daily [phone] via [employer] [place] [facility]. If no response, please page [phone]. Hospitalist Progress Note 04/13/2024 Subjective: Admit Date: 04/03/2024 PCP: Jared Evans MD Room#: N4-001/N4-611 B BRIEF HOSPITAL COURSE: 83-year-old woman with history of A-fib on Eliquis, tobacco use, hypertension, hyperlipidemia, asthma, hiatal hernia, GERD presented to [facility] on 04/03 with right leg pain, numbness, tingling causing difficulty ambulating. CTA of lower extremity showed severe atherosclerotic disease with bilateral superficial femoral artery occlusion and transferred to [facility]. She underwent venous thrombectomy with vascular surgery and was initiated on warfarin bridging with heparin. [facility] followed and managed bridging anticoagulation. Pt reported feeling improvement from day to day. Though she was concerned that being stuck in the hospital will debilitate her.Her INR was therapeutic on 04/13. [facility] recommended transition to Warfarin alternating 5mg/7.5mg dosing and close OP follow up for INR check. Interval History: Pt seen and examined at bedside. No acute events overnight. Requested to work with PT this morning. They recommend home PT. Heparin gtt discontinued, plan for alternating 5/7.5 dosed warfarin and close OP follow up with [facility]. Case and plan discussed with patient [...] person, place, and time. Medications: Scheduled PRN Jbanpywffgp-Skcxrrcuo-Julrbi, 1 puff, Inhalation, Daily influenza, 0.5 mL, [...] was pursued: -Heparin bridge to warfarin per [facility] recommendations - INR therapeutic on 04/13 - [...] Roldan MD Division of Hospitalist Medicine Acute [facility] Hospitalist Progress Note 04/12/2024 Subjective: Admit Date: 04/03/2024 PCP: Jared Evans MD Room#: N4461/N4462 B BRIEF HOSPITAL COURSE: 83-year-old woman with history of A-fib on Eliquis, tobacco use, hypertension, hyperlipidemia, asthma, hiatal hernia, GERD presented to [facility] on 04/03 with right leg pain, numbness, tingling causing difficulty ambulating. CTA of lower extremity showed severe atherosclerotic disease with bilateral superficial femoral artery occlusion and transferred to [facility]. She underwent venous thrombectomy with [...] person, place, and time. Medications: Scheduled PRN Wdiaakanxux-Mmngujlzy-Ktbulz, 1 puff, Inhalation, Daily influenza, 0.5 mL, [...] Jordin Roldan MD Division of Hospitalist Medicine [facility] Anticoagulation Management Service ([facility]) Inpatient Warfarin Consult HPI: Mel Pop is a 83 y.o. female admitted on 04/03/2024 for Peripheral arterial disease (HCC). Past Medical History: Diagnosis Date Asthma Essential hypertension 03/07/2020 GERD (gastroesophageal reflux disease) Hiatal hernia Pure hypercholesterolemia 03/07/2020 Patient is newly referred to the [facility] clinic for warfarin management. Pt was [...] and adjust dose accordingly. 3. Will facilitate [facility] follow-up upon discharge. Patient is agreeable to [facility] follow up. 4. Provided warfarin education. Marybeth Rahman RPh, PharmD [facility] Consult Service is available daily [phone] via [employer] [facility] [place] [facility]. If no response, please page [phone]. Images from the original note were not included. OCCUPATIONAL THERAPY [facility] Initial Evaluation Name/MRN: Mel Pop ([id number]) Evaluation Date: 04/11/2024 Date of : 1940 Admission Date: 04/03/2024 5:47 PM Age: 83 y.o. Room[facility]Bed: N4461/[facility] Discharge Recommendation: Home with assist [...] 03/07/2020 Osteopenia of left femoral neck 03/07/2020 long-term current use of anticoagulant therapy 03/07/2020 Seasonal allergies 03/07/2020 Chronic renal insufficiency, stage III (moderate) ([facility]) 03/07/2020 Major depression, single episode, in complete remission ([facility]) 03/07/2020 Gastroesophageal reflux disease without esophagitis 03/07/2020 Essential hypertension 03/07/2020 Pure hypercholesterolemia 03/07/2020 Overweight 03/07/2020 Psoriasis 03/07/2020 History of cerebrovascular accident 03/07/2020 Atrial fibrillation ([facility]) 03/07/2020 Chronic obstructive pulmonary disease ([facility]) 03/07/2020 Finger osteomyelitis, right ([facility]) 03/06/2020 Medical Precautions: No active [...] Responsibilities: Independent Receives Help From: None Active Hydro Generation Supervisor: Yes Prior Level of Function ADL Assistance: [...] of Care supervision is transferred to a [facility] Therapy Services Occupational Therapist. Goals and/or treatment plan was established in collaboration with patient/family/other representatives. Hospitalist Progress Note 04/11/2024 Subjective: Admit Date: 04/03/2024 PCP: Jared Evans MD Room#: N4-461/N4-461 B BRIEF HOSPITAL COURSE: 83-year-old woman with history of A-fib on Eliquis, tobacco use, hypertension, hyperlipidemia, asthma, hiatal hernia, GERD presented to [facility] on 04/03 with right leg pain, numbness, tingling causing difficulty ambulating. CTA of lower extremity showed severe atherosclerotic disease with bilateral superficial femoral artery occlusion and transferred to [facility]. She underwent venous thrombectomy with [...] person, place, and time. Medications: Scheduled PRN Hrspwahjser-Ldbpahfne-Swfsnh, 1 puff, Inhalation, Daily influenza, 0.5 mL, [...] Jordin Roldan MD Division of Hospitalist Medicine [facility] Images from the original note were not included. 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[facility]) 06/16/2022 Cellulitis 05/18/2022 Nicotine use disorder 05/18/2022 Irritable bowel syndrome with diarrhea 03/07/2020 Microscopic hematuria 03/07/2020 Left retinal detachment 03/07/2020 Hyperglycemia 03/07/2020 Osteopenia of left femoral neck 03/07/2020 long-term current use of anticoagulant therapy 03/07/2020 Seasonal allergies 03/07/2020 Chronic renal insufficiency, stage III (moderate) ([facility]) 03/07/2020 Major depression, single episode, in complete remission ([facility]) 03/07/2020 Gastroesophageal reflux disease without [...] of Care supervision is transferred to a [facility] Therapy Services Physical Therapist. Goals and/or treatment plan was established in collaboration with patient/family/other representatives. [facility] Anticoagulation Management Service ([facility]) Inpatient Warfarin Consult HPI: Mel Pop is a 83 y.o. female admitted on 04/03/2024 for Peripheral arterial disease (HCC). Past Medical History: Diagnosis Date Asthma Essential hypertension 03/07/2020 GERD (gastroesophageal reflux disease) Hiatal hernia Pure hypercholesterolemia 03/07/2020 Patient is newly referred to the [facility] clinic for warfarin management. Pt was [...] PharmD [facility] Consult Service is available daily [phone] via [employer]. If no response, please page [phone]. Hospitalist Progress Note 04/10/2024 Subjective: Admit Date: 04/03/2024 PCP: Jared Evans MD Room#: N4-511/N4-413 B BRIEF HOSPITAL COURSE: 83-year-old woman with history of A-fib on Eliquis, tobacco use, hypertension, hyperlipidemia, asthma, hiatal hernia, GERD presented to [facility] on 04/03 with right leg pain, numbness, tingling causing difficulty ambulating. CTA of lower extremity showed severe atherosclerotic disease with bilateral superficial femoral artery occlusion and transferred to [facility]. She underwent venous thrombectomy with [...] MD Division of Hospitalist Medicine Acute care [facility] Nutrition update completed. Chart reviewed. Patient to be monitored and followed by the diet factory maintenance technician. FADI Farrar [facility] Anticoagulation Management Service ([facility]) Inpatient Warfarin Consult HPI: Mel Pop is a 83 y.o. female admitted on 04/03/2024 for Peripheral arterial disease (HCC). Past Medical History: Diagnosis Date Asthma Essential hypertension 03/07/2020 GERD (gastroesophageal reflux disease) Hiatal hernia Pure hypercholesterolemia 03/07/2020 Patient is newly referred to the [facility] clinic for warfarin management. Pt was [...] Will determine if pt is agreeable to [facility] follow-up. 4. Will provide warfarin education. Marybeth Rahman RPh, PharmD [facility] Consult Service is available daily [phone] via [employer] [place] [facility]. If no response, please page [phone]. Hospitalist Progress Note 04/09/2024 Assessment/Plan: Data: (CAT1) [...] asthma, hiatal hernia, GERD who presented to [facility] 04/03 with right leg pain, numbness, tingling causing difficulty ambulating. CTA of LE, showing severe LE atherosclerotic disease with bilateral superficial femoral artery occlusion, and was transferred to [facility] for admission. Interval History: Mild [...] Robert Vigil MD Division of Hospitalist Medicine [facility] Anticoagulation Management Service ([facility]) Inpatient Warfarin Consult HPI: Mel Pop is a 83 y.o. female admitted on 04/03/2024 for Peripheral arterial disease (HCC). Past Medical History: Diagnosis Date Asthma Essential hypertension 03/07/2020 GERD (gastroesophageal reflux disease) Hiatal hernia Pure hypercholesterolemia 03/07/2020 Patient is newly referred to the [facility] clinic for warfarin management. Pt was [...] PharmD [facility] Consult Service is available daily [phone] via [employer] [place] [facility]. If no response, please page [phone]. Hospitalist Progress Note 04/08/2024 Assessment/Plan: Data: (CAT1) [...] asthma, hiatal hernia, GERD who presented to [facility] 04/03 with right leg pain, numbness, tingling causing difficulty ambulating. CTA of LE, showing severe LE atherosclerotic disease with bilateral superficial femoral artery occlusion, and was transferred to [facility] for admission. Interval History: Pain [...] Robert Vigil MD Division of Hospitalist Medicine [facility] Anticoagulation Management Service ([facility]) Inpatient Warfarin Consult HPI: Mel Pop is a 83 y.o. female admitted on 04/03/2024 for Peripheral arterial disease (HCC). Past Medical History: Diagnosis Date Asthma Essential hypertension 03/07/2020 GERD (gastroesophageal reflux disease) Hiatal hernia Pure hypercholesterolemia 03/07/2020 Patient is newly referred to the [facility] clinic for warfarin management. Pt was [...] PharmD [facility] Consult Service is available daily [phone] via [employer] [place] [facility]. If no response, please page [phone]. Hospitalist Progress Note 04/07/2024 Assessment/Plan: Data: (CAT1) [...] Anticipate DC pending clinical improvement and pain., Teletray Operator recommendations, Coumadin bridge with heparin Total time [...] asthma, hiatal hernia, GERD who presented to [facility] 04/03 with right leg pain, numbness, tingling causing difficulty ambulating. CTA of LE, showing severe LE atherosclerotic disease with bilateral superficial femoral artery occlusion, and was transferred to [facility] for admission. Interval History: Pain [...] Robert Vigil MD Division of Hospitalist Medicine [facility] Anticoagulation Management Service ([facility]) Inpatient Warfarin Consult [...] Will determine if pt is agreeable to [facility] follow-up. 4. Will provide warfarin education. Michelle Lugo RPh, PharmD [facility] Consult Service is available daily [phone] via [employer]. If no response, please page [phone]. Department of General Surgery Daily Progress Note [...] in chart for Dr Blank[facility] Lolita Sarah MD PGY5, General Surgery Pager #[phone] CDI Query Response: Acute thrombus within the [...] Anticipate DC pending clinical improvement and pain., Teletray Operator recommendations, Coumadin bridge with heparin Total time [...] asthma, hiatal hernia, GERD who presented to [facility] 04/03 with right leg pain, numbness, tingling causing difficulty ambulating. CTA of LE, showing severe LE atherosclerotic disease with bilateral superficial femoral artery occlusion, and was transferred to [facility] for admission. Interval History: Has [...] Elise Vigil MD Division of Hospitalist Medicine [facility] Department of General Surgery Daily Progress Note [...] questions have been answered to their satisfaction. [facility] Anticoagulation Management Service ([facility]) Inpatient Warfarin Consult HPI: Mel Pop is a 83 y.o. female admitted on 04/03/2024 for Peripheral arterial disease (HCC). Past Medical History: Diagnosis Date Asthma Essential hypertension 03/07/2020 GERD (gastroesophageal reflux disease) Hiatal hernia Pure hypercholesterolemia 03/07/2020 Patient is newly referred to the [facility] clinic for warfarin management. Pt was [...] Will determine if pt is agreeable to [facility] follow-up 4. Will provide warfarin education. Marybeth Rahman RPh, PharmD [facility] Consult Service is available daily [phone] via [employer] [place] [facility]. If no response, please page [phone]. Hospitalist Progress Note 04/05/2024 Assessment/Plan: Data: (CAT1) [...] Discharge Disposition: Anticipate DC pending clinical improvement, websphere consultant recommendations Total time spent (which include [...] asthma, hiatal hernia, GERD who presented to [facility] 04/03 with right leg pain, numbness, tingling causing difficulty ambulating. CTA of LE, showing severe LE atherosclerotic disease with bilateral superficial femoral artery occlusion, and was transferred to [facility] for admission. Interval History: Had [...] Robert Vigil MD Division of Hospitalist Medicine [facility] Nutrition rescreen completed. Chart reviewed. Patient to be monitored and followed by the diet factory maintenance technician. FADI Harmon [facility] Anticoagulation Management Service ([facility]) Inpatient Warfarin Consult HPI: Mel Pop is a 83 y.o. female admitted on 04/03/2024 for Peripheral arterial disease (HCC). Past Medical History: Diagnosis Date Asthma Essential hypertension 03/07/2020 GERD (gastroesophageal reflux disease) Hiatal hernia Pure hypercholesterolemia 03/07/2020 Patient is newly referred to the [facility] clinic for warfarin management. Pt was [...] PharmD [facility] Consult Service is available daily [phone] via [employer]. If no response, please page [phone]. Department of General Surgery Daily Progress Note [...] Naik MD General Surgery PGY-4 Pager # [phone] Associated attestation - Kristyn Blankenship MD - [...] NPO at midnight for possible thrombectomy tomorrow. [facility] Anticoagulation Management Service ([facility]ELLA) Inpatient Warfarin Consult HPI: Mel Pop is a 83 y.o. female admitted on 04/03/2024 for Peripheral arterial disease (HCC). Past Medical History: Diagnosis Date Asthma Essential hypertension 03/07/2020 GERD (gastroesophageal reflux disease) Hiatal hernia Pure hypercholesterolemia 03/07/2020 Patient is newly referred to the [facility] clinic for warfarin management. Pt was [...] Will determine if pt is agreeable to [facility] follow-up 4. Will provide warfarin education. Thank you for this consult Marybeth Rahman RPh, PharmD [facility] Consult Service is available daily [phone] via [employer] [place] [facility]. If no response, please page [phone]. Nonbillable encounter. Patient was seen by provider earlier today Patient is an 83-year-old female with history of A-fib on Eliquis, significant tobacco use, HTN, HLD, asthma, hiatal hernia, GERD who presented to [facility] 04/03 with right leg pain, numbness, tingling causing difficulty ambulating. CTA of LE, showing severe LE atherosclerotic disease with bilateral superficial femoral artery occlusion, and was transferred to [facility] for admission. Severe bilateral LE [...] Eliquis -Smoking cessation documented in this encounter [facility] 04-13-2024 Note Formatting of this n ote is different from the original. Images from the original note were not included. Care Management Progress Note INR 2.3 today. Hep drip continued, plan to DC to [facility] today. Plan to have PT seen patient today per her request. Patient is active with [facility]. Await treatment plan and clinical progress. manager it security will continue to follow for transitional care [...] Rehman, RN 04/04/2024 8:48 AM hep gtt, oliva lower [place], vasc consult" 04/06/2024 SEBASTIAN Herrera CNP 04/04/2024 4:04 AM 04/06/2024 SEBASTIAN Herrera CNP 04/03/2024 11:17 PM Length of Stay (Days): 10 GMLOS: 4 [facility] 04-13-2024 Note Formatting of this n ote is different from the original. Images from the original note were not included. Care Management Progress Note INR 2.3 today. Hep drip continued, plan to DC to [facility] today. Plan to have PT seen patient today per her request. Patient is active with [facility]. Await treatment plan and clinical progress. manager it security will continue to follow for transitional care [...] Length of Stay (Days): 10 GMLOS: 4 [facility] 04-13-2024 Plan of care note The patient [...] plan, medications, and discharge instructions Outcome: Progressing [facility] 04-12-2024 Plan of care note Problem: Pain [...] risk of patient condition declining or worsening [facility] 04-12-2024 Note Formatting of this n ote is different from the original. Images from the original note were not included. Care Management Progress Note Patent currently still on Hep Drip, INR 1.9. Will convert to oral when appropriate. Pt active with [facility]- will continue services at discharge. Await treatment plan and clinical progress. manager it security will continue to follow for transitional care needs for discharge planning. Discharge Milestones and Delays Expected date/time: 04/13/2024 Expected discharge disposition: Home Health Services Discharge Milestones Place discharge order Complete med reconciliation Case mgmt discharge readiness Clinical Stability Diagnostic Workup Teletray Operator Recommendations Facility Choice Selection Imaging Results PT [...] Length of Stay (Days): 9 GMLOS: 4 [facility] 04-12-2024 Note Formatting of this n ote is different from the original. Images from the original note were not included. Care Management Progress Note Patent currently still on Hep Drip, INR 1.9. Will convert to oral when appropriate. Pt active with [facility]- will continue services at discharge. Await treatment plan and clinical progress. manager it security will continue to follow for transitional care needs for discharge planning. Discharge Milestones and Delays Expected date/time: 04/13/2024 Expected discharge disposition: Home Health Services Discharge Milestones Place discharge order Complete med reconciliation Case mgmt discharge readiness Clinical Stability Diagnostic Workup Teletray Operator Recommendations Facility Choice Selection Imaging Results PT discharge readiness OT discharge readiness Patient Education Complete Expected Discharge History Expected Date/Time Set By Reviewed At 04/13/2024 Cathi Avila RN 04/12/2024 8:02 AM hep gtt- transitioning to coumadin, INR 1.9" 04/11/2024 Cathi Avila RN 04/11/2024 8:03 AM 04/11/2024 Cathi Avila RN 04/10/2024 8:41 AM hep gtt- transitioning to coumadin" 04/10/2024 Vigrinia Rehman RN 04/09/2024 8:13 AM 04/08/2024 Virginia Rehman, RADHA 04/06/2024 8:13 AM hep gtt, poss thrombectomy 04/07/2024 Virginia Rehman RN 04/05/2024 8:03 AM hep gtt, poss thrombectomy tomorrow" 04/06/2024 Virginia Rehman RN 04/04/2024 8:48 AM hep gtt, oliva lower US, vasc consult" 04/06/2024 SEBASTIAN Herrera CNP 04/04/2024 4:04 AM 04/06/2024 SEBASTIAN Herrera CNP 04/03/2024 11:17 PM Length of Stay (Days): 9 GMLOS: 4 [facility] 04-12-2024 Plan of care note The patient [...] plan, medications, and discharge instructions Outcome: Progressing [facility] 04-11-2024 Note Formatting of this n ote is different from the original. Images from the original note were not included. Care Management Progress Note Patent currently still on Hep Drip, INR 1.9. Will convert to oral when appropriate. Pt active with [facility]- will continue services at discharge. Await treatment plan and clinical progress. manager it security will continue to follow for transitional care [...] Length of Stay (Days): 8 GMLOS: 4 [facility] 04-11-2024 Note Formatting of this n ote is different from the original. Images from the original note were not included. Care Management Progress Note Patent currently still on Hep Drip, INR 1.9. Will convert to oral when appropriate. Pt active with [facility]- will continue services at discharge. Await treatment plan and clinical progress. manager it security will continue to follow for transitional care [...] Length of Stay (Days): 8 GMLOS: 4 [facility] 04-11-2024 Plan of care note Problem: Pain [...] risk of patient condition declining or worsening [facility] 04-11-2024 Plan of care note The patient [...] level or baseline comfort level Outcome: Progressing [facility] 04-10-2024 Plan of care note Problem: Pain [...] risk of patient condition declining or worsening [facility] 04-10-2024 Note Formatting of this n ote is different from the original. Images from the original note were not included. Care Management Progress Note Patient currently still on Heparin Drip, INR 1.6 today.Will convert to oral when appropriate. Pt active with [facility]- will continue services at discharge. Await treatment plan and clinical progress. manager it security will continue to follow for transitional care needs for discharge planning. Discharge Milestones and Delays Expected date/time: 04/11/2024 Expected discharge disposition: Home or Self Care Discharge Milestones Place discharge order Complete med reconciliation Case mgmt discharge readiness Clinical Stability Diagnostic Workup Teletray Operator Recommendations Facility Choice Selection Imaging Results Patient [...] vasc consult" 04/06/2024 Bernie Cutler APRN - HAZARDOUS MATERIALS TANKER DRIVER 04/04/2024 4:04 AM 04/06/2024 SEBASTIAN Herrera CNP 04/03/2024 11:17 PM Length of Stay (Days): 7 GMLOS: 4 [facility] 04-10-2024 Note Formatting of this n ote is different from the original. Images from the original note were not included. Care Management Progress Note Patient currently still on Heparin Drip, INR 1.6 today.Will convert to oral when appropriate. Pt active with [facility]- will continue services at discharge. Await treatment plan and clinical progress. manager it security will continue to follow for transitional care needs for discharge planning. Discharge Milestones and Delays Expected date/time: 04/11/2024 Expected discharge disposition: Home or Self Care Discharge Milestones Place discharge order Complete med reconciliation Case mgmt discharge readiness Clinical Stability Diagnostic Workup Teletray Operator Recommendations Facility Choice Selection Imaging Results Patient [...] Length of Stay (Days): 7 GMLOS: 4 [facility] 04-09-2024 Note Formatting of this n ote is different from the original. Images from the original note were not included. Care Management Progress Note Remains on heparin gtt while transitioning to coumadin. Consult Hemology. Pt active with [facility]- will continue services at discharge. Await treatment plan and clinical progress. manager it security will continue to follow for transitional care needs for discharge planning. Discharge Milestones and Delays Expected date/time: 04/10/2024 Expected discharge disposition: Home or Self Care Discharge Milestones Place discharge order Complete med reconciliation Case mgmt discharge readiness Clinical Stability Diagnostic Workup Teletray Operator Recommendations Facility Choice Selection Imaging Results Patient [...] Length of Stay (Days): 6 GMLOS: 3.1 [facility] 04-09-2024 Note Formatting of this n ote is different from the original. Images from the original note were not included. Care Management Progress Note Remains on heparin gtt while transitioning to coumadin. Consult Hemology. Pt active with [facility]- will continue services at discharge. Await treatment plan and clinical progress. manager it security will continue to follow for transitional care needs for discharge planning. Discharge Milestones and Delays Expected date/time: 04/10/2024 Expected discharge disposition: Home or Self Care Discharge Milestones Place discharge order Complete med reconciliation Case mgmt discharge readiness Clinical Stability Diagnostic Workup Teletray Operator Recommendations Facility Choice Selection Imaging Results Patient [...] vasc consult" 04/06/2024 Bernie Cutler APRN - HAZARDOUS MATERIALS TANKER DRIVER 04/04/2024 4:04 AM 04/06/2024 Bernie Cutler APRN - HAZARDOUS MATERIALS TANKER DRIVER 04/03/2024 11:17 PM Length of Stay (Days): 6 GMLOS: 3.1 T [facility] 04-08-2024 Plan of care note Progressing [facility] 04-07-2024 Plan of care note The patient [...] or baseline comfort level Outcome: Progressing . [facility] 04-07-2024 Hospital Discharge instructions Lolita Sarah MD [...] Rahman RPh - 04/13/2024 1:07 PM EDT [facility] Clinic will monitor your warfarin after you go home. [facility] Phone number: [phone]. Home care nurse will check your INR Monday 04/16 and [facility] will contact you with warfarin dosing [...] detachment Hyperglycemia Osteopenia of left femoral neck long-term current use of anticoagulant therapy Seasonal allergies [...] 8 oz) Mental Status: {HECTOR Patient Mental Status:66954} IV Access: {HECTOR IV Access:12542} Nursing Mobility/ADLs: Walking {MAHESH ADL:::"Independent"} Transfer {MAHESH ADL:::"Independent"} Bathing {MAHESH ADL:::"Independent"} Dressing {MAHESH ADL:::"Independent"} Toileting {MAHESH ADL:::"Independent"} Feeding {MAHESH ADL:::"Independent"} Assistant Manager [employer] {MAHESH ADL:::"Independent"} Med Delivery {yes/no:90775} Wound Care Documentation and Therapy: Elimination: Continence: Bowel: {yes/no:60053} Bladder: {yes/no:33355} Urinary Catheter: {HECTOR Urinary Catheter:55033} Colostomy/Ileostomy/Ileal Conduit: {YES / NO:} Date of Last BM: Intake/Output Summary (Last 24 hours) at 04/04/2024 1135 Last data filed at 04/03/20242056 Gross per 24 hour Intake 500 ml Output -- Net 500 ml I/O last 3 completed shifts: In: 500 (6.9 mL/kg) [IV Piggyback:500] Out: - (0 mL/kg) Weight: 72.3 kg Safety Concerns: {HECTOR Safety Concerns:60973} Impairments/Disabilities: {HECTOR Impairments/Disabilities:44756} Nutrition Therapy: Current Nutrition Therapy: {HECTOR Diet List:10349} Routes of Feeding: {routes of feedin} Liquids: {liquid consistency:68620} Daily Fluid Restriction: {daily fluid restriction:83850} Last Modified Barium Swallow with Video (Video Swallowing Test): {done not done:83806} Treatments at the Time of Hospital Discharge: Respiratory Treatments: Oxygen Therapy: {Therapy; copd oxygen:19386} Ventilator: {HECTOR Ventilator:90972} Rehab Therapies: {GEN THERAPY DISCIPLINE SCAL:5528612} Weight Bearing Status/Restrictions: {POD WEIGHT BEARIN} Other Medical Equipment (for information only, NOT a DME order): {Assistive Devices DME:57664} Other Treatments: Patient's personal belongings (please select all that are sent with patient): {HECTOR Patient Belongings:32597} RN SIGNATURE: {E-signature:41282} CASE MANAGEMENT/SOCIAL WORK SECTION Inpatient Status Date: Discharging to Facility/ Agency Name: [facility] [place] [address] Dialysis Facility (if applicable) Name: Address: Dialysis Schedule: Phone: Fax: Personal Care Aide/Chief Dispatcher Service signature: {E-signature:57709} PHYSICIAN SECTION Name: Mel Pop Prognosis: {Rehab Prognosis:96509} Condition at Discharge: {Patient Condition:63097} Rehab Potential (if transferring to Rehab): {Rehab Prognosis:40638} Recommended Labs or Other Treatments After Discharge: The individual is being admitted to a nursing facility directly from an [facility] or a unit of a [facility] that is not operated by or licensed by [facility] under section 5119.14 or 5160-3-15.1 5 The individual requires the level of services provided by a nursing facility for the condition for which he or she was treated in the hospital and, Physician Certification: I certify the above information and transfer of Mel Pop is necessary for the continuing treatment of the diagnosis listed and that she requires {HECTOR Level of Care:67677} for {greater less than:23730} 30 days. Update Admission H&P: {HECTOR Changes in H&P:40812} PHYSICIAN SIGNATURE: {E-signature:97546} documented in this encounter [facility] 04-07-2024 Nurse Note NO changes to heparin infusion at this time. [facility] 04-06-2024 Note Formatting of this n ote is different from the original. Images from the original note were not included. Care Management Progress Note Pt s/p thrombectomy this am with vascular. Remains on heparin gtt while transitioning to coumadin. Pt active with [facility]- will continue services at discharge. Discharge Milestones [...] vasc consult" 04/06/2024 Bernie Cutler APRN - HAZARDOUS MATERIALS TANKER DRIVER 04/04/2024 4:04 AM 04/06/2024 Bernie Cutler APRN - HAZARDOUS MATERIALS TANKER DRIVER 04/03/2024 11:17 PM Length of Stay (Days): 3 GMLOS: 3.1 [facility] 04-06-2024 Note Formatting of this n ote is different from the original. Images from the original note were not included. Care Management Progress Note Pt s/p thrombectomy this am with vascular. Remains on heparin gtt while transitioning to coumadin. Pt active with [facility]- will continue services at discharge. Discharge Milestones [...] vasc consult" 04/06/2024 Bernie Cutler APRN - HAZARDOUS MATERIALS TANKER DRIVER 04/04/2024 4:04 AM 04/06/2024 Bernie Cutler, GROOMING ASSISTANT - HAZARDOUS MATERIALS TANKER DRIVER 04/03/2024 11:17 PM Length of Stay (Days): 3 GMLOS: 3.1 [facility] 04-06-2024 Note Formatting of this n ote might be different from the original. Patient report called to 4N RN and denies any further questions. Patient resting comfortably and no signs of distress. Per resident patient to lay flat for 2 hours and restart heparin GTT at 1215. Transport notified. [facility] 04-06-2024 Note Formatting of this n ote might be different from the original. Patient report called to 4N RN and denies any further questions. Patient resting comfortably and no signs of distress. Per resident patient to lay flat for 2 hours and restart heparin GTT at 1215. Transport notified. [facility] 04-06-2024 Note Formatting of this n ote might be different from the original. SW assisted patient with completion of Health Care Power of Systems Integration Advisor. One copy placed in patient chart, one copy sent to medical records and two copies given to patient. Requested by patient, while at bedside this SW spoke to patient's son via patients phone to explain that HCPOA was being completed by patient. Patients son José Miguel Castillo ([phone]) agreed to be this patients agent on the HCPOA and confirmed understanding. [facility] 04-06-2024 Note Formatting of this n ote might be different from the original. KEESHA assisted patient with completion of Health Care Power of Systems Integration Advisor. One copy placed in patient chart, one copy sent to medical records and two copies given to patient. Requested by patient, while at bedside this SW spoke to patient's son via patients phone to explain that HCPOA was being completed by patient. Patients son Bacel Castillo ([phone]) agreed to be this patients agent on the HCPOA and confirmed understanding. [facility] 04-06-2024 Note Formatting of this n ote [...] technique was used to place a 5 Danish sheath. A Bentson wire was able to be advanced in the inferior vena cava without difficulty. The 5 Danish sheath was then upsized to a 16 Danish sheath and the penumbra flash suction thrombectomy device was prepared per printing press machinist's instructions. The patient was also given 5000 units of heparin for systemic anticoagulation at this time. The Penumbra device was then inserted through the 16 Danish sheath and a suction thrombectomy was performed [...] device was removed as was the 16 Danish sheath and an 0 silk suture was [...] the case. Kristyn Blankenship MD Vascular Surgery [facility] 04-06-2024 Note Formatting of this n ote is different from the original. Date: 04/06/2024 Location: [facility] OR Name: Mel Pop, : 1940, Diagnosis Pre-op Diagnosis * Right leg DVT (HCC) [I82.401] Post-op Diagnosis * Right leg DVT (HCC) [I82.401] Procedures RIGHT LOWER EXTREMITY VENOUS MECHANICAL THROMBECTOMY 42371 - [facility] PRQ TRANSLUMINAL MECHANICAL THROMBECTOMY VEIN Surgeons * Kristyn Blankenship - Primary Procedure Summary Anesthesia: General ASA: III Estimated Blood Loss: 300 mL Drains: * None in log * Staff: Roller Varnisher: Negrita Rey, RN; Amira Burton RN Scrub [...] antibiotics are not indicated for this procedure. [facility] 04-06-2024 Note Formatting of this n ote [...] technique was used to place a 5 Danish sheath. A [employer] and [employer] wire was able to be advanced in the inferior vena cava without difficulty. The 5 Danish sheath was then upsized to a 16 Danish sheath and the penumbra flash suction thrombectomy device was prepared per printing press machinist's instructions. The patient was also given 5000 units of heparin for systemic anticoagulation at this time. The Penumbra device was then inserted through the 16 Danish sheath and a suction thrombectomy was performed [...] device was removed as was the 16 Danish sheath and an 0 silk suture was [...] the case. Kristyn Blankenship MD Vascular Surgery [facility] 04-06-2024 Note Formatting of this n ote is different from the original. Date: 04/06/2024 Location: [facility] OR Name: Mel Pop, : 1940, Diagnosis Pre-op Diagnosis * Right leg DVT (HCC) [I82.401] Post-op Diagnosis * Right leg DVT (HCC) [I82.401] Procedures RIGHT LOWER EXTREMITY VENOUS MECHANICAL THROMBECTOMY 99254 - [facility] PRQ TRANSLUMINAL MECHANICAL THROMBECTOMY VEIN Surgeons * Kristyn Blankenship - Primary Procedure Summary Anesthesia: General ASA: III Estimated Blood Loss: 300 mL Drains: * None in log * Staff: Roller Varnisher: Negrita Rey RN; Amira Burton RN Scrub [...] antibiotics are not indicated for this procedure. [facility] 04-06-2024 Note Formatting of this n ote might be different from the original. Dr Blankenship at bedside. She called family to update them on procedure time change [facility] 04-06-2024 Note Formatting of this n ote might be different from the original. Dr Blankenship at bedside. She called family to update them on procedure time change [facility] 04-06-[address] Blankenship at bedside. She called family to update them on procedure time change [facility] 04-05-2024 Note Formatting of this n ote is different from the original. Images from the original note were not included. Care Management Progress Note Vascular following with noted plan for possible thrombectomy tomorrow. Remains on heparin gtt while transitioning to coumadin per oncology recommendation. Pt from home alone- indep and active with [facility]- will return. Discharge Milestones and Delays Expected [...] Length of Stay (Days): 2 GMLOS: 3.1 [facility] 04-05-2024 Note Formatting of this n ote is different from the original. Images from the original note were not included. Care Management Progress Note Vascular following with noted plan for possible thrombectomy tomorrow. Remains on heparin gtt while transitioning to coumadin per oncology recommendation. Pt from home alone- indep and active with [facility]- will return. Discharge Milestones and Delays Expected [...] gtt, oliva lower US, vasc consult" 04/06/2024 Bernei Cutler APRN - HAZARDOUS MATERIALS TANKER DRIVER 04/04/2024 4:04 AM 04/06/2024 Bernie Cutler APRN - HAZARDOUS MATERIALS TANKER DRIVER 04/03/2024 11:17 PM Length of Stay (Days): 2 GMLOS: 3.1 [facility] 04-05-2024 Plan of care note The patient is Moderately Stable - Low risk of patient condition declining or worsening The patient's goals for the shift include met The clinical goals for the shift include met [facility] 04-04-2024 Consult note Formatting of th is note is different from the original. Images from the original note were not included. [facility] Hematology Oncology Inpatient Consultation [facility] Mel Pop : 1940(83 y.o.) Date: [...] afib, hypertension, and GERD who presented to [facility] for right lower extremity pain. Reports [...] trifurcation vessels. Vascular surgery recommended transfer to [facility]. PVR and BLE US results [...] called her listed contacts (her friend and [id number] however they do not manage her pill [...] eliquis. I have left a voicemail with [facility] pharmacy in [place] to see if the Eliquis is being [...] min Stress: No Stress Concern Present (04/04/2024) [facility] [place] [facility] - Occupational Stress Questionnaire Feeling of Stress : Not at all Social Connections: Moderately Isolated (04/04/2024) Social Connection and Isolation Panel [NHANES] Frequency of Communication with Friends and Family: More than three times a week Frequency of Social Gatherings with Friends and Family: More than three times a week Attends Church Services: 1 to 4 times per year [...] 04/03/2024 Patient Name: MEL POP : 1940 [facility]#: [id number] Exam Date/Time: 04/03/2024 21:14 Procedure: CTA AORTA [...] 04/03/2024 Patient Name: MEL POP : 1940 [facility]#: [id number] Exam Date/Time: 04/03/2024 21:06 Procedure: CT HEAD [...] completing clinical documentation as well as with [id number]-[id number] patient care, performing a medically appropriate examination, counseling / educating the patient/family/caregiver, and ordering medications, tests, or procedures. Electronically signed by Anthony Yee APRN - HAZARDOUS MATERIALS TANKER DRIVER Attending Attestation Note: I have personally performed [...] well as answering questions. Andre Patel MD [facility] Work Phone: 04-04-2024 Consult note Formatting of th is note is different from the original. Images from the original note were not included. [facility] Hematology Oncology Inpatient Consultation [facility] Mel Pop : 1940(83 y.o.) Date: [...] afib, hypertension, and GERD who presented to [facility] for right lower extremity pain. Reports [...] trifurcation vessels. Vascular surgery recommended transfer to [facility]. PVR and BLE US results [...] called her listed contacts (her friend and [id number] however they do not manage her pill [...] eliquis. I have left a voicemail with [facility] pharmacy in [place] to see if the Eliquis is being [...] min Stress: No Stress Concern Present (04/04/2024) [facility] [place] [facility] - Occupational Stress Questionnaire Feeling of Stress : Not at all Social Connections: Moderately Isolated (04/04/2024) Social Connection and Isolation Panel [NHANES] Frequency of Communication with Friends and Family: More than three times a week Frequency of Social Gatherings with Friends and Family: More than three times a week Attends Church Services: 1 to 4 times per year [...] 04/03/2024 Patient Name: MEL POP : 1940 [facility]#: [id number] Exam Date/Time: 04/03/2024 21:06 Procedure: CT HEAD [...] completing clinical documentation as well as with cbry-ky-cuih patient care, performing a medically appropriate examination, [...] Lolita Sarah MD PGY5, General Surgery Pager #[phone] Past Medical History: Diagnosis Date Asthma Essential [...] min Stress: No Stress Concern Present (04/04/2024) [facility] [place] [facility] - Occupational Stress Questionnaire Feeling of Stress : Not at all Social Connections: Moderately Isolated (04/04/2024) Social Connection and Isolation Panel [NHANES] Frequency of Communication with Friends and Family: More than three times a week Frequency of Social Gatherings with Friends and Family: More than three times a week Attends Church Services: 1 to 4 times per year [...] TESTING: Patient Name: MEL POP : 1940 [facility]#: [id number] Exam Date/Time: 04/03/2024 21:14 Procedure: CTA AORTA [...] evidence of phlegmasia. Heparin gtt initiated at [facility] prior to transfer and continued here. She notes missed doses of her Eliquis. Recommend compression and elevation of the right lower extremity. Can consider mechanical thrombectomy however given patient's age, this may be more risk than of benefit. Will continue to monitor for symptom improvement on anticoagulation alone. documented in this encounter [facility] 04-04-2024 Note Formatting of this n ote might be different from the original. 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 Pt active with [facility]- liaison following for continued services. Pt uses walker/cane at baseline. Pt has insurance, PCP and able to obtain meds. Pt's friends help with transportation. No needs antic at discharge. Virginia Rehman RN [facility] 04-04-2024 Note Formatting of this n ote might be different from the original. 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 Pt active with [facility]- liaison following for continued services. Pt uses walker/cane at baseline. Pt has insurance, PCP and able to obtain meds. Pt's friends help with transportation. No needs antic at discharge. Virginia Rehman RN [facility] 04-04-2024 Note Formatting of this n ote is different from the original. Start PACC Note Home Health Referral Educated patient on Home Care and services available. Patient offered choice of available HHC and agreeable to SN/PT services with [facility] at Home - Home Care. Care Types: [...] is noted as yes - consider a STONE HAND evaluation once the patient returns home. START PATIENT REGISTRATION INFORMATION Order Information Order Signing Physician: Robert Vigil MD Service Ordered RN ?: Yes Service Ordered PT ?: Yes Service Ordered OT ?: No Service Ordered ST ?: No Service Ordered STONE HAND?:No Service Ordered PUBLIC RELATIONS DIRECTOR?: No Following Physician: Jared Evans MD Following Physician Overseeing Physician: Jared Evans MD (Required for Residents only) Agreeable to Follow? Yes Date/Time of Call 04/04/24 11:36 AM, Spoke with: Patient is a DEB. Care Coordination Same Day SOC?: No Primary Care Physician: Jared Evans MD Primary Care Physician Primary Care Physician Address: [address] [place] [id number] Visit Instructions: N/A Service Discharge Location Type: Home with Home Care Service Facility Name: N/A Service Floor Facility: N/A Service Room No: N/A Demographics Patient Last Name: Jose Alberto Patient First Name: Mel Language/Communication Barrier: none Service Address: [address] Service City: [place] Service ST: [place] Service ZIP: [address] Service Other phone numbers: Telephone Information: Emergency [...] Caregiver Phone Number: na Caregiver Notes: N/A [employer] List No END PATIENT REGISTRATION INFORMATION Pt [...] intervention. Discharge Date: pending Referral Source-PACC: (Hospital/Unit): [facility] / N4-461/N4-461 B End PACC Note [facility] 04-04-2024 Note Formatting of this n ote is different from the original. Start PACC Note Home Health Referral Educated patient on Home Care and services available. Patient offered choice of available HHC and agreeable to SN/PT services with [facility] at Home - Home Care. Care Types: [...] is noted as yes - consider a STONE HAND evaluation once the patient returns home. START PATIENT REGISTRATION INFORMATION Order Information Order Signing Physician: Robert Vigil MD Service Ordered RN ?: Yes Service Ordered PT ?: Yes Service Ordered OT ?: No Service Ordered ST ?: No Service Ordered STONE HAND?:No Service Ordered PUBLIC RELATIONS DIRECTOR?: No Following Physician: Jared Evans MD Following Physician Overseeing Physician: Jaerd Evans MD (Required for Residents only) Agreeable to Follow? Yes Date/Time of Call 04/04/24 11:36 AM, Spoke with: Patient is a DEB. Care Coordination Same Day SOC?: No Primary Care Physician: Jared Evans MD Primary Care Physician Primary Care Physician Address: [address] [place] [address] Visit Instructions: N/A Service Discharge Location Type: Home with Home Care Service Facility Name: N/A Service Floor Facility: N/A Service Room No: N/A Demographics Patient Last Name: Jose Alberto Patient First Name: Mel Language/Communication Barrier: none Service Address: [address] [place] [address] [address] Service City: [place] Service ST: [place] Service ZIP: [address] Service Other phone numbers: Telephone Information: Emergency [...] Caregiver Phone Number: na Caregiver Notes: N/A [employer] List No END PATIENT REGISTRATION INFORMATION Pt [...] intervention. Discharge Date: pending Referral Source-PACC: (Hospital/Unit): [facility] / N4-461/N4-461 B End PACC Note [facility] 04-04-2024 Plan of care note The patient is Moderately Stable - Low risk of patient condition declining or worsening The patient's goals for the shift include safety The clinical goals for the shift include therapeutic aptt [facility] 04-04-2024 Note Formatting of this n ote might be different from the original. Patient is currently active with [facility]. The patients current certification period will on 05/18/24. The patient is currently receiving PT services through the agency. Institutional Asset Manager to continue to follow. [facility] 04-04-2024 Note Formatting of this n ote might be different from the original. Patient is currently active with [facility]. The patients current certification period will on 05/18/24. The patient is currently receiving PT services through the agency. Institutional Asset Manager to continue to follow. [facility] 04-04-2024 Consult note Associated Order (s): IP [...] Lolita Sarah MD PGY5, General Surgery Pager #[phone] Past Medical History: Diagnosis Date Asthma Essential [...] min Stress: No Stress Concern Present (04/04/2024) [facility] [place] [facility] - Occupational Stress Questionnaire Feeling of Stress : Not at all Social Connections: Moderately Isolated (04/04/2024) Social Connection and Isolation Panel [NHANES] Frequency of Communication with Friends and Family: More than three times a week Frequency of Social Gatherings with Friends and Family: More than three times a week Attends Church Services: 1 to 4 times per year [...] TESTING: Patient Name: MEL POP : 1940 [id number] Exam Date/Time: 04/03/2024 21:14 Procedure: CTA AORTA [...] evidence of phlegmasia. Heparin gtt initiated at [facility] prior to transfer and continued here. She notes missed doses of her Eliquis. Recommend compression and elevation of the right lower extremity. Can consider mechanical thrombectomy however given patient's age, this may be more risk than of benefit. Will continue to monitor for symptom improvement on anticoagulation alone. [facility] Work Phone: 04-04-2024 Note Formatting of this [...] - DO NOT do CPR, intubation] [_] [DNR-TRAINING AND QUALITY MANAGER - Comfort care only] [_] DNR form [...] and/or family/surrogate. Pratibha Avelar DO [facility] 04/04/2024, 5:40 AM [facility] 04-04-2024 Note Formatting of this n ote [...] - DO NOT do CPR, intubation] [_] [DNR-TRAINING AND QUALITY MANAGER - Comfort care only] [_] DNR form [...] [facility] 04/04/2024, 5:40 AM T [facility] 04-04-2024 History and physical note Attending [...] min Stress: No Stress Concern Present (04/04/2024) [facility] [facility] - Occupational Stress Questionnaire Feeling of Stress : Not at all Social Connections: Moderately Isolated (04/04/2024) Social Connection and Isolation Panel [NHANES] Frequency of Communication with Friends and Family: More than three times a week Frequency of Social Gatherings with Friends and Family: More than three times a week Attends Church Services: 1 to 4 times per year [...] DO Division of Hospitalist Medicine [place] [place] [facility] Work Phone: 04-04-2024 Note [facility] 04-04-2024 History and physical note Attending [...] min Stress: No Stress Concern Present (04/04/2024) [facility] [place] [facility] - Occupational Stress Questionnaire Feeling of Stress : Not at all Social Connections: Moderately Isolated (04/04/2024) Social Connection and Isolation Panel [NHANES] Frequency of Communication with Friends and Family: More than three times a week Frequency of Social Gatherings with Friends and Family: More than three times a week Attends Church Services: 1 to 4 times per year [...] DO Division of Hospitalist Medicine Inpatient Medical Services[place] [place] documented in this encounter [facility] 04-04-2024 Plan of care note The patient is Moderately Stable - Low risk of patient condition declining or worsening The patient's goals for the shift include met The clinical goals for the shift include met Over the shift, the patient did not make progress toward the following goals. Barriers to progression include . Recommendations to address these barriers include . [facility] 04-04-2024 Emergency department Note Report to Delia Bond RN 04/04/24 034 [facility] 04-04-2024 Emergency department Note Report to Delia Bond RN 04/04/24 034 Multiple attempts made to call report to [facility] with phone number provided by auxiliary powerplant operator, but when phone number dialed RN only gets busy tone. Will try again. Shannon Bond RN 04/04/24 0331 [facility] at bedside to transport pt to [facility]. Paperwork with EMS Shannon Bond RN 04/04/24 0314 EMERGENCY DEPARTMENT ENCOUNTER Pt Name: Mel Pop Birthdate 1940 Date of evaluation: 04/03/2024 ED Provider: Bernie Culter APRN - SHAMIKA This patient was seen [...] Resource Strain: Low Risk (05/18/2022) Received from [facility] Overall Financial Resource Strain (CARDIA) Difficulty of Paying Living Expenses: Not hard at all Food Insecurity: No Food Insecurity (05/18/2022) Received from [facility] Hunger Vital Sign Worried About Running Out of Food in the Last Year: Never true Ran Out of Food in the Last Year: Never true Transportation Needs: No Transportation Needs (05/18/2022) Received from [facility] PRAPARE - Transportation Lack of Transportation (Medical): No Lack of Transportation (Non-Medical): No Housing Stability: Unknown (05/18/2022) Received from [facility] Housing Stability Vital Sign Unable to [...] 82. I also reviewed external records from [facility]. I discussed their care with hugh. Consideration for escalation of care with: Admission/observation discussed case with Dr. 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 [...] SEBASTIAN Herrera CNP 04/03/242237 Emergency Department Encounter [facility]N Patient: Mel [...] consulted recommends heparin drip and transferred to [facility], 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 Patient admitted to [facility]. Patient in agreement with plan. [...] [facility] Winifred Cornell DO 04/06/24 1626 Pt presents via EMS from home. States [...] or other complaints. documented in this encounter [facility] 04-04-2024 Emergency department Note Multiple attempts made to call report to [facility] with phone number provided by auxiliary powerplant operator, but when phone number dialed RN only gets busy tone. Will try again. Shannon Bond RN 04/04/24 4506 [facility] 04-04-2024 Emergency department Note [facility] at bedside to transport pt to [facility]. Paperwork with EMS Shannon Bond RN 04/04/24 3256 [facility] 04-03-2024 Emergency department Triage note Pt presents [...] upon arrival. No SOB or other complaints. [facility] 04-03-2024 Physician Emergency department Note EMERGENCY DEPARTMENT [...] Resource Strain: Low Risk (05/18/2022) Received from [facility] Overall Financial Resource Strain (CARDIA) Difficulty of Paying Living Expenses: Not hard at all Food Insecurity: No Food Insecurity (05/18/2022) Received from [facility] Hunger Vital Sign Worried About Running Out of Food in the Last Year: Never true Ran Out of Food in the Last Year: Never true Transportation Needs: No Transportation Needs (05/18/2022) Received from [facility] PRAPARE - Transportation Lack of Transportation (Medical): No Lack of Transportation (Non-Medical): No Housing Stability: Unknown (05/18/2022) Received from [facility] Housing Stability Vital Sign Unable to [...] Physician EKG interpretation can be found in [facility] RADIOLOGY (Per Emergency Physician): Interpretation per the [...] extremities will heparinize or admit her to [facility] in case she needs an emergent angio.. 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 Patient admitted to [facility]. Patient in agreement with plan. [...] [facility] Winifred Cornell DO 04/06/24 1327 [facility] Work Phone: 07-27-2023 History of Present illness Narrative [facility] [address] [place] [address] [address] [place] [address] Dept: [phone] Dept Mel Pop 1940 [id number] 07/27/2023 HISTORY OF PRESENT ILLNESS: Mel is [...] improve. Electronically signed by Ming Weinberg MD [facility] Department of Orthopedic surgery 07/27/2023 5:21 PM Voice recognition was used for portions of this note and although it was reviewed prior to signing some incorrect words or phrases could be present. documented in this encounter [facility] 07-06-2022 Miscellaneous Notes PATIENT INFORMATION Record ID: [id number] Patient Name: Mel [facility] Hospital: [facility] [place]: [place] Attending: Iwona Chu Center: Internal Medicine and Geriatrics INSTRUCTIONS All Clear SN to remind patient of next upcoming appointment date, time, location All Clear All Clear All Clear SURVEY INFORMATION Medical/Nurse Picker Machine Operator: Inés Tubbs 1. Your discharge instructions [...] (Standard Question) No documented in this encounter [facility] 06-29-2022 Note HNO ID: [id number] Author: Joana Tolbert RPh Service: Pharmacy Author [...] Your Medications These medications were sent to [facility] [address] [place] [id number] Hours: Tuesday-Tuesday, 8am-4:30pm apixaban 5 mg (74 tabs) ascorbic acid (vitamin C) 500 mg tablet bacitracin 500 unit/gram ointment guaiFENesin 600 mg 12 hr tablet HYDROcodone-acetaminophen 5-325 mg per tablet lactobacillus rhamnosus 10 billion cell capsule metoprolol tartrate (short acting) [address] 40 mg tablet sucralfate 1 gram tablet [facility] 06-29-2022 Note HNO ID: [id number] Author: Kassidy Mejia RN Service: Care Management Author Type: Registered Nurse Type: Care Mgt Progress Note Filed: 06/29/2022 12:39 PM Note Text: CARE MANAGEMENT DISCHARGE NOTE SERVICE DATE: 06/29/2022 SERVICE TIME: 12:38 PM LOS: 13 days Admission Date: 06/16/2022 DISCHARGE ARRANGEMENT (list agency and phone number) Discharge Arrangement: Home with Home Health Provider Name: Moravia Polo/Madelaine CAREGIVER ASSESSMENT: Caregiver is ready, willing and able to meet the patient's needs as recommended by the inter-professional team:: Yes Patient's transition needs and plan for meeting these needs: [facility] HANDOFF COMMUNICATION: TRANSPORTATION ARRANGEMENTS: Transportation Arrangements: Car ADDITIONAL CONTACT RESOURCES: [facility] was able to approve and deliver home O2. SIGNATURE: Kassidy Mejia RN PATIENT NAME: Mel Castillo DATE: June 29, 2022 TIME: 12:38 PM PAGER/CONTACT #: [phone] [facility] 06-28-2022 Note HNO ID: [id number] Author: Iwona Chu DO Service: Hospital Medicine Author Type: Physician Type: Progress Notes Filed: 06/28/2022 8:58 PM Note Text: Needs O2 arranged before discharge [facility] 06-28-2022 Note HNO ID: [id number] Author: Irene Han RN Service: Care Management [...] In Person (verbalized understanding) Referral sent to [facility] for home going O2. Awaiting ambulatory pox to be completed. Plan to return home with family support and HHC through [facility]. Family to transport. Will need home O2/HC orders, prior to dc. IMM completed. UPDATE @ 1435: [facility] is outside of the patient's service area. Additional DMR referrals sent to [facility] and [facility]; awaiting response. Will need accepting DMR provider and home O2 delivery, prior to discharge. Oxygen/HC orders in [facility]. SIGNATURE: Irene Han RN PATIENT NAME: Mel Castillo DATE: June 28, 2022 TIME: 1:58 PM PAGER/CONTACT #: [phone] [facility] 06-28-2022 Note HNO ID: [id number] Author: Iwona Chu DO Service: Hospital Medicine [...] micropuncture needle and serially upsized to a 5-Danish sheath. A venogram was then performed, which [...] time, the sheath was upsized to an 8-Danish sheath. An intravascular ultrasound was performed. This [...] of overt GI (more content not included)... [facility] 06-27-2022 Note HNO ID: [id number] Author: Iwona Chu DO Service: Hospital Medicine [...] micropuncture needle and serially upsized to a 5-Danish sheath. A venogram was then performed, which [...] time, the sheath was upsized to an 8-Danish sheath. An intravascular ultrasound was performed. This [...] accept for hh (more content not included)... [facility] 06-26-2022 Note HNO ID: [id number] Author: Iwona Chu DO Service: Hospital Medicine [...] micropuncture needle and serially upsized to a 5-Danish sheath. A venogram was then performed, which [...] time, the sheath was upsized to an 8-Danish sheath. An intravascular ultrasound was performed. This [...] 06/22/22 rec subacute/SNF (more content not included)... [facility] 06-25-2022 Note HNO ID: [id number] Author: Heron Ayers MD Service: Hospital Medicine [...] 0859 06/16/22 194 vte current anticoag therapy ([place]) 06/16/221944 activity - mobilize patient ([place] VTE Prophylaxis: VTE prophylaxis appropriate Disposition: Home Plan of care discussed with: Provider, RN, Patient SIGNATURE: Heron Ayers MD PATIENT NAME: Mel Castillo DATE: June 25, 2022 TIME: 12:03 PM etx [id number] [facility] 06-25-2022 Note HNO ID: [id number] Author: Kassidy Mejia RN Service: Care Management [...] 25, 2022 TIME: 11:30 AM PAGER/CONTACT #: [phone] [facility] 06-24-2022 Note HNO ID: [id number] Author: Richie Yi MD Service: General Internal Medicine Author Type: Physician Type: Progress Notes Filed: 06/24/2022 6:34 PM Note Text: DEPARTMENT OF HOSPITAL MEDICINE PROGRESS NOTE SERVICE DATE: 06/23/2022 SERVICE TIME: 7:19 PM Hospital Medicine/Primary Attending: Richie Yi MD NIGHT AND WEEKEND COVERAGE: OSSINING COVERAGE: After 7pm, please call cross cover pager #[phone] Subjective Patient was seen today. She is [...] 06/25/22 0300 06/16/221944 vte current anticoag therapy ([place]) 06/16/221944 activity - mobilize patient ([place] VTE Prophylaxis: VTE prophylaxis appropriate Disposition: To be determined Plan of care discussed with: Provider, RN, Patient SIGNATURE: Richie Yi MD PATIENT NAME: Mel Castillo DATE: June 23, 2022 TIME: 7:19 PM etx [id number] [facility] 06-24-2022 Note HNO ID: [id number] Author: SHAQUILLE Kaye Service: Care Management Author Type: Chief Dispatcher Service Type: Care Mgt Progress Note Filed: 06/24/2022 [...] 24, 2022 TIME: 1:02 PM PAGER/CONTACT #: [phone] [facility] 06-23-2022 Note HNO ID: [id number] Author: Richie Yi MD Service: General Internal Medicine Author Type: Physician Type: Progress Notes Filed: 06/23/2022 7:28 PM Note Text: DEPARTMENT OF HOSPITAL MEDICINE PROGRESS NOTE SERVICE DATE: 06/23/2022 SERVICE TIME: 7:19 PM Hospital Medicine/Primary Attending: Richie Yi MD NIGHT AND WEEKEND COVERAGE: OSSINING COVERAGE: After 7pm, please call cross cover pager #[phone] Subjective Patient was seen today. She is [...] 1028 -- 06/16/221944 vte current anticoag therapy ([place]) 06/16/221944 activity - mobilize patient ([place] VTE Prophylaxis: VTE prophylaxis appropriate Disposition: To be determined Plan of care discussed with: Provider, RN, Patient SIGNATURE: Richie Yi MD PATIENT NAME: Mel Castillo DATE: June 23, 2022 TIME: 7:19 PM etx [id number] [facility] 06-23-2022 Note HNO ID: [id number] Author: Kassidy Mejia RN Service: Care Management Author Type: Registered Nurse Type: Care Mgt Progress Note Filed: 06/23/2022 4:00 PM Note Text: CARE MANAGEMENT PROGRESS NOTE SERVICE DATE: 06/23/2022 SERVICE TIME: 3:55 PM LOS: 7 days Spoke with pt at the bedside. Discussed SNF placement. Auth obtained for [facility]- pt would be responsible for copay 50% of cost per day for days 1-100. Pt refusing SNF at this time. Pt would like to d/c home with her son and dtr-in-law to ([address] [place] [address]). [facility]- Referrals sent. Pt may need home O2- await ambulatory pulse ox. Family likely able to transport at d/c. CM to follow. SIGNATURE: Kassidy Mejia RN PATIENT NAME: Mel Castillo DATE: June 23, 2022 TIME: 3:53 PM PAGER/CONTACT #: [phone] [facility] 06-22-2022 Note HNO ID: [id number] Author: Dwayne Zaidi MD Service: Hospital Medicine Author Type: Physician Type: Progress Notes Filed: 06/22/2022 6:47 PM Note Text: DEPARTMENT OF HOSPITAL MEDICINE PROGRESS NOTE SERVICE DATE: 06/22/2022 SERVICE TIME: 6:42 PM Hospital Medicine/Primary Attending: Dwayne Zaidi MD NIGHT AND WEEKEND COVERAGE: After 7pm please page [phone] CHIEF COMPLAINT: Follow-up for acute left lower [...] bowel sounds normally heard, no mass palpable ENERGY SCHEDULER- cranial nerves 2 to 12 grossly intact, [...] TPROT 5.3* -- (more content not included)... [facility] 06-22-2022 Note HNO ID: [id number] Author: Kassidy Mejia RN Service: Care Management Author Type: Registered Nurse Type: Care Mgt Progress Note Filed: 06/22/2022 10:15 AM Note Text: CARE MANAGEMENT PROGRESS NOTE SERVICE DATE: 06/22/2022 SERVICE TIME: 10:15 AM LOS: 6 days IMM Follow Up Copy Given: Yes Copy given to:: Patient Method: In Person (verbal) [facility] is able to accept pt. Precert tasked. Pt will need cot for transport. CM to follow. SIGNATURE: Kassidy Mejia RN PATIENT NAME: Mel Castillo DATE: June 22, 2022 TIME: 10:14 AM PAGER/CONTACT #: [phone] [facility] 06-21-2022 Note HNO ID: [id number] Author: Dwayne Zaidi MD Service: Hospital Medicine Author Type: Physician Type: Progress Notes Filed: 06/21/2022 4:10 PM Note Text: DEPARTMENT OF HOSPITAL MEDICINE PROGRESS NOTE SERVICE DATE: 06/21/2022 SERVICE TIME: 4:04 PM Hospital Medicine/Primary Attending: Dwayne Zaidi MD NIGHT AND WEEKEND COVERAGE: After 7pm please page [phone] CHIEF COMPLAINT: Follow-up for acute left lower [...] bowel sounds normally heard, no mass palpable ENERGY SCHEDULER- cranial nerves 2 to 12 grossly intact, [...] by weight. Has (more content not included)... [facility] 06-21-2022 Note HNO ID: [id number] Author: Kassidy Mejia RN Service: Care Management Author Type: Registered Nurse Type: Care Mgt Progress Note Filed: 06/21/2022 3:44 PM Note Text: CARE MANAGEMENT PROGRESS NOTE SERVICE DATE: 06/21/2022 SERVICE TIME: 3:41 PM LOS: 5 days Spoke with pt at the bedside. Pt states that she lives at home alone. PT/OT rec SNF. Pt would like [facility]- referral sent. Await acceptance. Pt will need precert when medically stable. Pt will need cot for transport. Cm to follow. SIGNATURE: Kassidy Mejia RN PATIENT NAME: Mel Castillo DATE: June 21, 2022 TIME: 3:41 PM PAGER/CONTACT #: [phone] [facility] 06-21-2022 Note HNO ID: [id number] Author: Primo Dodd APRN.SHAMIKA Service: Gastroenterology Author [...] evaluation given evidence (more content not included)... [facility] 06-20-2022 Note HNO ID: [id number] Author: Acacia Hardin DO Service: General Surgery Author Type: Resident Type: Plan of Care Filed: 06/20/2022 1:40 PM Note Text: Plan of Care Dr. 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 Spoke with Dr. Wilson, production team advisor for Dr. Rodriguez, and she states these [...] 26.94 kg/m? Acacia Fuantonioata, 06/20/2022 1:36 PM [facility] 06-20-2022 Note HNO ID: [id number] Author: Dwayne Zaidi MD Service: Hospital Medicine Author Type: Physician Type: Progress Notes Filed: 06/20/2022 12:39 PM Note Text: DEPARTMENT OF HOSPITAL MEDICINE PROGRESS NOTE SERVICE DATE: 06/20/2022 SERVICE TIME: 12:35 PM Hospital Medicine/Primary Attending: Dwayne Zaidi MD NIGHT AND WEEKEND COVERAGE: After 7pm please page [phone] CHIEF COMPLAINT: Follow-up for acute left lower [...] bowel sounds normally heard, no mass palpable ENERGY SCHEDULER- cranial nerves 2 to 12 grossly intact, [...] previous IVC tahmina (more content not included)... [facility] 06-19-2022 Note HNO ID: [id number] Author: Dwayne Zaidi MD Service: Hospital Medicine Author Type: Physician Type: Progress Notes Filed: 06/19/2022 4:33 PM Note Text: DEPARTMENT OF HOSPITAL MEDICINE PROGRESS NOTE SERVICE DATE: 06/19/2022 SERVICE TIME: 4:29 PM Hospital Medicine/Primary Attending: Dwayne Zaidi MD NIGHT AND WEEKEND COVERAGE: After 7pm please page [phone] CHIEF COMPLAINT: Follow-up for acute left lower [...] bowel sounds normally heard, no mass palpable ENERGY SCHEDULER- cranial nerves 2 to 12 grossly intact, [...] stools and andrew (more content not included)... [facility] 06-18-2022 Note HNO ID: [id number] Author: Emanuel Hull MD Service: General Surgery [...] Surgery PGY-3 June 18, 2022 5:39 PM [facility] 06-18-2022 Note HNO ID: [id number] Author: Dwayne Zaidi MD Service: Hospital Medicine Author Type: Physician Type: Progress Notes Filed: 06/18/2022 5:37 PM Note Text: DEPARTMENT OF HOSPITAL MEDICINE PROGRESS NOTE SERVICE DATE: 06/18/2022 SERVICE TIME: 5:35 PM Hospital Medicine/Primary Attending: Dwayne Zaidi MD NIGHT AND WEEKEND COVERAGE: After 7pm please page [phone] CHIEF COMPLAINT: Follow-up for acute left lower [...] bowel sounds normally heard, no mass palpable ENERGY SCHEDULER- cranial nerves 2 to 12 grossly intact, [...] + Bolus for (more content not included)... [facility] 06-18-2022 Note HNO ID: [id number] Author: Kassidy Mejia RN Service: Care Management [...] 18, 2022 TIME: 3:46 PM PAGER/CONTACT #: [phone] [facility] 06-17-2022 Note HNO ID: [id number] Author: Eliza Parikh RN Service: Nursing Author Type: Registered Nurse Type: Nursing Progress Note Filed: 06/17/2022 7:24 PM Note Text: Pt to 4200 via bed. Pt tolerated well. [facility] 06-17-2022 Note HNO ID: [id number] Author: Eliza Parikh RN Service: Nursing Author Type: Registered Nurse Type: Nursing Progress Note Filed: 06/17/2022 4:35 PM Note Text: Report to 4200 Jayne RN [facility] 06-17-2022 Note HNO ID: [id number] Author: Efrain Ivey (Stripe) Service: Pharmacy Author Type: Pipeline Technician Type: Plan of Care Filed: 06/17/2022 2:16 PM Note Text: PHARMACY MEDICATION REVIEW Patient Name: Mel Castillo : 1940 The following medications were updated within the HEALTH PHYSICS TECHNICIAN medication list: Medications ADDED to HEALTH PHYSICS TECHNICIAN medication list amLODIPine (NORVASC) 10 mg tablet OTHER Yes Yes dexAMETHasone (DECADRON) 4 mg tablet OTHER Yes Yes lisinopril (ZESTRIL, PRINIVIL) 5 mg tablet OTHER Yes Yes RX filled via [facility] and verified with pt. herself Medications CHANGED on HEALTH PHYSICS TECHNICIAN medication list na Medications REMOVED from HEALTH PHYSICS TECHNICIAN medication list na Additional comments: I was able to talk with the pt. about her home medications. She states she takes the 3 RX medications recorded below. These 3 medications were added to her HEALTH PHYSICS TECHNICIAN list. She has finished Paxlovid and a physician stopped Augmentin per pt. interview Required follow up for nursing. Medication history completed by Historian. No nursing follow up required. The below information represents the best possible medication history: Yes Medication history completed by: Pipeline Technician: Efrain Ivey ([employer]ri[employer]) Source of history: Patient: Reliability of source: Appears reliable, clearly identified: Medication name, Medication dose, Medication route, and Medication frequency and Pharmacy records: [facility] Medication nonadherence identified: No barriers noted Reconciliation completed: No, pharmacist not yet reviewed Patient interested in Bedside Delivery Services or using OP Pharmacy at discharge? No Preferred outpatient pharmacy: [id number] [place] [address] - [phone] Allergies: Percocet [Oxycodone* Itching Prior to Admission [...] once daily. Facility-Administered Medications: None Efrain Ivey (Cruise Director) phone [phone] 06/17/2022 [facility] 06-17-2022 Note HNO ID: [id number] Author: Ladan Adame RN Service: Care Management [...] 17, 2022 TIME: 12:37 PM PAGER/CONTACT #: [phone] [facility] 06-17-2022 Note HNO ID: [id number] Author: Eliza Parikh RN Service: Nursing Author Type: Registered Nurse Type: Nursing Progress Note Filed: 06/17/2022 10:40 AM Note Text: Echo at bedside [facility] 06-16-2022 Note HNO ID: [id number] Author: Cirilo Alaniz APRN.CRNA Service: Anesthesiology Author Type: Nurse Apparel Rental Clerk Type: Anesthesia Procedure Notes Filed: 06/16/2022 5:04 PM Note Text: ANESTHESIOLOGY PROCEDURE NOTE Airway General Information Procedure Start Time/Medication Administration: 06/16/2022 4:29 PM Patient location during procedure: OR Timeout Performed Pre-procedure: timeout performed Consent Obtained: Yes Patient identity confirmed: arm band and patient Staffing PAPER COLORER: Cirilo Alaniz APRN.PAPER COLORER Indications and Patient Condition Indications for airway [...] 1 Airway not difficult SIGNATURE: Cirilo Alaniz APRN.PAPER COLORER PATIENT NAME: Mel Castillo DATE: June 16, 2022 TIME: 5:03 PM CSN: [id number] [facility] 06-16-2022 Note HNO ID: [id number] Author: Jean Pierre Gamboa RPh Service: Pharmacy [...] patient. Signature: Jean Pierre Gamboa RPh Pager/Extension: [phone] [facility] 05-17-2022 History of Present illness Narrative HPI [...] be seen in the emergency room at [facility] for probable admission for IV antibiotics and airway concern. Patient understands this and will leave shortly. Josiah Barnes MD Findings will be communicated to the referring physician via mail or electronic medical record. documented in this encounter [facility] 05-14-2022 Instructions Jared Vealzquez PA-C - 05/14/2022 2:57 PM EDT ASSESSMENT/PLAN: [...] Jared Velazquez PA-C documented in this encounter [facility] 05-14-2022 History of Present illness Narrative [...] which included preparing to see the patient, [id number] patient care, completing clinical documentation, performing a medically appropriate examination, counseling and educating the patient/family/caregiver, and ordering medications, tests, or procedures. 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 [facility] [place] [facility] Diagnosis Acute bacterial sialadenitis- Primary Bashir's, angina [facility] [place] [facility] Diagnosis Localized swelling, mass and lump, neck Swelling, mass, or lump in head and neck [facility] Localized swelling, mass and lump, neck Swelling, mass, or lump in head and neck [facility] Diagnosis Localized swelling, mass and lump, neck- Primary Swelling, mass, or lump in head and neck Localized swelling, mass and lump, neck Swelling, mass, or lump in head and neck [facility] Diagnosis Other specified soft tissue disorders [facility]* Diagnosis Localized swelling, mass and lump, neck- Primary Swelling, mass, or lump in head and neck Localized swelling, mass and lump, neck Swelling, mass, or lump in head and neck [facility] Diagnosis Abnormal findings on diagnostic imaging of other specified body structures Pain in left leg [facility] 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[facility] Diagnosis Other specified soft tissue disorders- Primary Other specified soft tissue disorders documented [facility]* Diagnosis Abnormal findings on diagnostic imaging of other specified body structures- Primary Pain in left leg Abnormal findings on diagnostic imaging of other specified body structures Pain in left leg [facility] Diagnosis Peripheral arterial disease (HCC)- Primary Unspecified peripheral vascular disease Right leg pain Pain in soft tissues of limb Peripheral arterial disease (HCC) Unspecified peripheral vascular disease Right leg weakness Muscle weakness (generalized) Atrial fibrillation, unspecified type (HCC) Ischemic leg Unspecified circulatory system disorder [facility]* Diagnosis Deep vein thrombosis (DVT) of lower extremity, unspecified chronicity, unspecified laterality, unspecified vein (HCC)- Primary [facility]* Diagnosis Atrial fibrillation, unspecified type (HCC) Acute venous embolism and thrombosis of deep vessels of proximal end of right lower extremity (HCC) [facility]* Diagnosis Acute deep vein thrombosis (DVT) of iliac vein of right lower extremity (HCC)- Primary PAD (peripheral artery disease) (HCC) Unspecified peripheral vascular disease [facility]* Diagnosis Deep vein thrombosis (DVT) of lower extremity, unspecified chronicity, unspecified laterality, unspecified vein (HCC) Atrial fibrillation, unspecified type (HCC) Acute venous embolism and thrombosis of deep vessels of proximal end of right lower extremity (HCC) [facility]* Diagnosis Atrial fibrillation, unspecified type (HCC) Acute venous embolism and thrombosis of deep vessels of proximal end of right lower extremity (HCC) [facility]* Diagnosis Atrial fibrillation, unspecified type (HCC) Acute venous embolism and thrombosis of deep vessels of proximal end of right lower extremity (HCC) [facility]* Diagnosis Paroxysmal atrial fibrillation (HCC) Atrial fibrillation [facility]* Diagnosis Atrial fibrillation, unspecified type [...] or 3b CKD (HCC) 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 (HCC) 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 Nicotine use disorder Tobacco use disorder Abnormal echocardiogram Nonspecific (abnormal) findings on radiological and other examination of other intrathoracic organs Left atrial mass documented in this encounter [facility] note* Diagnosis Retinal detachment, right- Primary Unspecified retinal detachment Vision loss of right eye Unqualified visual loss, one eye Acute intractable headache, unspecified headache type Visual disturbance, subjective Unspecified subjective visual disturbance Vision loss of right eye Unqualified visual loss, one eye Visual disturbance, subjective Unspecified subjective visual disturbance documented in this encounter [facility] note* Diagnosis 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 Hemorrhagic choroidal detachment Dislocation of intraocular lens, initial encounter [facility] [place] [facility] Diagnosis 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 Hemorrhagic choroidal detachment [facility] [place] [facility] Diagnosis 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 Hemorrhagic choroidal detachment Dislocation of intraocular lens, initial encounter Hemorrhagic choroidal detachment of right eye Hemorrhagic choroidal detachment [facility] [place] [facility] Diagnosis 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 Hemorrhagic choroidal detachment Hemorrhagic choroidal detachment of right eye Hemorrhagic choroidal detachment [facility] [place] [facility]* Diagnosis Postoperative eye state- Primary Other states following surgery of eye and adnexa Hemorrhagic choroidal detachment of right eye Hemorrhagic choroidal detachment Pseudophakia, right eye Lens replaced by other means Subluxation of right lens Subluxation of lens [facility] [place] [facility] Diagnosis Paroxysmal atrial fibrillation (HCC)- Primary Atrial fibrillation Paroxysmal atrial fibrillation (HCC) Atrial fibrillation documented in this encounter [facility] note* Diagnosis Postoperative eye state Other states following surgery of eye and adnexa Hemorrhagic choroidal detachment of right eye Hemorrhagic choroidal detachment Pseudophakia, right eye Lens replaced by other means Subluxation of right lens Subluxation of lens Hemorrhagic choroidal detachment of right eye Hemorrhagic choroidal detachment [facility] [place] [facility]* Diagnosis Post-operative state- Primary Other postprocedural status [facility] [place] [facility]* Diagnosis Postoperative eye state Other states following surgery of eye and adnexa Hemorrhagic choroidal detachment of right eye Hemorrhagic choroidal detachment Pseudophakia, right eye Lens replaced by other means Subluxation of right lens Subluxation of lens [facility] [place] [facility]* Diagnosis Aspiration pneumonitis (CMS/HCC) (HCC)- Primary Pneumonitis due to inhalation of food or vomitus Aspiration pneumonitis (CMS/HCC) (HCC) Pneumonitis due to inhalation of food or vomitus Vomiting and diarrhea LORENZA (acute kidney injury) (HCC) [facility] [place] [facility] Diagnosis Acute deep vein thrombosis (DVT) of iliac vein of right lower extremity (HCC)- Primary PAD (peripheral artery disease) (HCC) Unspecified peripheral vascular disease [facility] [place] [facility]* Diagnosis Postoperative eye state Other states following surgery of eye and adnexa Hemorrhagic choroidal detachment of right eye Hemorrhagic choroidal detachment Pseudophakia, right eye Lens replaced by other means Subluxation of right lens Subluxation of lens documented in this encounter [facility] note* Diagnosis 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 Hemorrhagic choroidal detachment Right retinal detachment Unspecified retinal detachment Postoperative eye state Other states following surgery of eye and adnexa Pseudophakia, right eye Lens replaced by other means Subluxation of right lens Subluxation of lens documented in this encounter [facility] noteNo assessment information [facility] Work Phone: Evaluation note* Diagnosis PAD (peripheral artery disease) (HCC)- Primary Unspecified peripheral vascular disease Skin ulcer of toe of right foot, limited to breakdown of skin (HCC) [facility] [place] [facility] Diagnosis Critical limb ischemia of right lower extremity (HCC)- Primary [facility] [place] [facility]* Diagnosis Pre-op evaluation- Primary Skin ulcer of right great toe (HCC) Critical limb ischemia of right lower extremity (HCC) [facility] Diagnosis Skin ulcer of toe of right foot, limited to breakdown of skin (HCC)- Primary PAD (peripheral artery disease) (HCC) Unspecified peripheral vascular disease Aftercare following surgery of the circulatory system Aftercare following surgery of the circulatory system, NEC [facility] Diagnosis Skin ulcer of toe of right foot, limited to breakdown of skin (HCC) PAD (peripheral artery disease) (HCC) Unspecified peripheral vascular disease Aftercare following surgery of the circulatory system Aftercare following surgery of the circulatory system, NEC [facility] Diagnosis Aftercare following surgery of the circulatory system- Primary Aftercare following surgery of the circulatory system, NEC PAD (peripheral artery disease) (HCC) Unspecified peripheral vascular disease [facility] [place] [facility] Diagnosis 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 Hemorrhagic choroidal detachment [facility] [place] [facility] Diagnosis Right retinal detachment- Primary Unspecified retinal detachment Hemorrhagic choroidal detachment of right eye Hemorrhagic choroidal detachment Pseudophakia, right eye Lens replaced by other means [facility]narrative)No reason for referral information [facility] Work Phone: Reason for visit Narrative* Imaging (Routine) - Closed Specialty Diagnoses / Procedures Referred By Elvin t Referred To Contact Cardiology Diagnoses Paroxysmal atrial fibrillation (HCC) Procedures Transthoracic echocardiogram (TTE) complete with contrast, bubble, strain, and 3D PRN VA ECHO TTHRC R-T 2D W/WOM-MODE COMPL SPEC&COLR D VA TTE W OR WO FOL WCON,Jared De La Garza MD [address] [place] [phone] Phone: tel: fax: Referral ID Status Reason Start Date Expiration Date Visits Re quested Visits Authorized [id number] Closed 04/20/2024 04/20/2025 1 1 [facility] for visit Narrative* Auth/Cert (Routine) Specialty Diagnoses / Procedures Referred By Contac t Referred To Contact Diagnoses Aspiration pneumonitis (CMS/HCC) (HCC) LORENZA (acute kidney injury) (HCC) Vomiting and diarrhea Procedures . Abbi Long DO [address] [place] [address] Phone: tel: fax: [facility] [address] [place] [address] Phone: tel: Referral ID Status Reason Start Date Expiration Date Visits Re quested Visits Authorized [id number] 1 1 [facility] for visit Narrative* Auth/Cert (Routine) Specialty Diagnoses [...] CATH RS&I CHG AORTOGRAPHY ABDOMINAL SERIALOGRAPHY RS&I VA INTRODUCTION CATHETER AORTA VA REVSC OPN/PRG FEM/POP W/ANGIOPLASTY UNI VA REVSC OPN/PRQ TIB/PAMELA W/ANGIOPLASTY UNI VA REVSC OPN/PRQ TIB/PAMELA W/STNT/ANGIOP SM VSL VA REVSC OPN/PRQ FEM/POP W/STNT/ANGIOP SM VSL AORTOILIAC ANGIOGRAPHY, RIGHT LOWER EXTREMITY ANGIOGRAPHY WITH RUNOFF, POSSIBLE SUPERFICIAL FEMORAL ARTERY/POPLITEAL/TIBIAL ANGIOPLASTY/STENTING Kristyn Blankenship MD [address] [address] Phone: tel: fax: [facility] MA[facility] OR [address] [facility] [place] [address] Phone: tel: Referral ID Status Reason Start Date Expiration Date Visits Re quested Visits Authorized [id number] 1 1 [facility] for visit Narrative* Imaging (Routine) - Closed Specialty Diagnoses / Procedures Referred By Elvin leyva Referred To Contact Vascular Surgery / Radiology Diagnoses Skin ulcer of toe of right foot, limited to breakdown of skin (HCC) PAD (peripheral artery disease) (HCC) Aftercare following surgery of the circulatory system Procedures Vascular US lower extremity arterial duplex right with MICHELLE Kristyn Blankenship MD [address] [place] [address] Phone: tel: fax: [facility] Imaging [address] [place] [address] Phone: tel: fax: Referral ID Status Reason Start Date Expiration Date Visits Re quested Visits Authorized [id number] Closed 12/05/2024 12/05/2025 1 1 [facility] Discharge Instructions * Attachments The following attachments cannot be sent through Care Everywhere. * Pulp-Space Infection (Bulgarian) documented in this encounter* Instructions* Tiffany Zhu [...] Documents on File Type Date Recorded Patient Vest Presser Expl anation Power of Systems Integration Advisor 04/06/2024 10:04 AM Date Activated Date Inactivated [...] Documents on File Type Date Recorded Patient Vest Presser Expl anation Power of Systems Integration Advisor 04/16/2024 1:26 PM Power of Systems Integration Advisor 04/06/2024 10:04 AM Healthcare Agents on File [...] Documents on File Type Date Recorded Patient Vest Presser Expl anation Power of Systems Integration Advisor 04/16/2024 1:26 PM Power of Systems Integration Advisor 04/06/2024 10:04 AM Date Activated Date Inactivated [...] Documents on File Type Date Recorded Patient Vest Presser Expl anation Advance Directive(s) 06/27/2024 12:58 PM [...] Documents on File Type Date Recorded Patient Vest Presser Expl anation Advance Directive(s) 06/27/2024 12:58 PM [...] Documents on File Type Date Recorded Patient Vest Presser Expl anation DNR (Do Not Resuscitate) 07/13/2024 10:35 AM Power of Systems Integration Advisor 04/16/2024 1:26 PM Power of Systems Integration Advisor 04/06/2024 10:04 AM Date Activated Date Inactivated [...] Documents on File Type Date Recorded Patient Vest Presser Expl anation DNR (Do Not Resuscitate) 07/13/2024 10:35 AM Power of Systems Integration Advisor 04/16/2024 1:26 PM Power of Systems Integration Advisor 04/06/2024 10:04 AM Date Activated Date Inactivated [...] First Alternate Health Care Agent Nadira Castillo [id number] First Alternat e Health Care Agent Healthcare Agents on File Name Relationship Healthcare Agent Relationship Communication Damaris DO NOT CALL-TERMINALLY ILL [place] Friend First Alternate Health Care Agent Nadira Castillo Gsoxkvtu-xp-kos First Alternat e Health Care Agent Healthcare Agents on File Name Relationship Healthcare Agent Relationship Communication Damaris DO NOT CALL-TERMINALLY ILL [place] Friend First Alternate Health Care Agent Nadira Castillo Ecnxkjtj-kq-jpl First Alternat e Health Care Agent Date Activated Date Inactivated Comments 08/03/2024 10:17 AM 08/16/2024 4:47 PM Healthcare Agents on File Name Relationship Healthcare Agent Relationship Communication Damaris DO NOT CALL-TERMINALLY ILL [place] Friend First Alternate Health Care Agent Nadira Castillo Qketpsqp-la-jip First Alternat e Health Care Agent Healthcare Agents on File Name Relationship Healthcare Agent Relationship Communication Damaris DO NOT CALL-TERMINALLY ILL [place] Friend First Alternate Health Care Agent Nadira Castillo Dxzwfmoq-zm-cmb First Alternat e Health Care Agent Healthcare Agents on File Name Relationship Healthcare Agent Relationship Communication Damaris DO NOT CALL-TERMINALLY ILL [place] Friend First Alternate Health Care Agent Nadira Castillo Trblokms-te-uro First Alternat e Health Care Agent Summary [...] gland swelling Procedures CONSULT TO ENT OFFICE/[facility]PATIENT [facility]-74 MINUTES Jared Velazquez PA-C [address] [place] [address] Referral ID Status Reason Start Date Expiration Date Visits Requested Visits Authorized [id number] Authorized PCP Requested Referral 2 05/14/2023 1 1 Specialty Diagnoses / Procedures Referred By Elvin t Referred To Contact Radiology Diagnoses Localized swelling, mass and lump, neck Procedures CT soft tissue neck w IV contrast Jared Evans MD [address] [place] [phone] Referral ID Status Reason Start Date Expiration Date Visits Re quested Visits Authorized [id number] Closed 03/08/2023 04/07/2023 1 1 Specialty Diagnoses / Procedures Referred By Elvin t Referred To Contact Cardiology Diagnoses Other specified soft tissue disorders Procedures Vascular US lower extremity venous duplex left Jared Evans MD [address] [place] [phone] Referral ID Status Reason Start Date Expiration Date V isits Requested Visits Authorized [id number] Pending Review 05/24/2023 05/23/2024 1 1 Specialty Diagnoses / Procedures Referred By Elvin t Referred To Contact Radiology Diagnoses Abnormal findings on diagnostic imaging of other specified body structures Pain in left leg Procedures MR tibia fibula left w and wo IV contrast Jared Evans MD [address] [place] [phone] Referral ID Status Reason Start Date Expiration Date Visits Re quested Visits Authorized [id number] Closed 06/01/2023 05/31/2024 1 1 Health Concerns Infection Onset Date Last Indicated Resolved Time COVID-19 Confirmed Comment:First positive per [facility]/OD[facility] system 06/02/2022. 06/16/2022 06/16/2022 06/19/2022 5:[address] Chief Complaint and Reason for Visit Chief Complaint Admit Date LABWORK August 20, 2024 5 :22am LABWORK September 03, 2024 5:00am ASSISTED LAB WORK September 03 8:18am ASSISTED LAB WORK September 10 5:00am Chief Complaint Admit Date LABWORK August 20, 2024 5 :22am LABWORK September 03, 2024 5:00am ASSISTED LAB WORK September 03 8:18am ASSISTED LAB WORK September 10 5:00am ASSISTED LAB WORK September 17, 2024 4: 00am Chief Complaint Admit Date LABWORK August 20, 2024 5 :22am LABWORK September 03, 2024 5:00am ASSISTED LAB WORK September 03 8:18am ASSISTED LAB WORK September 10 5:00am ASSISTED LAB WORK September 17, 2024 4: 00am ASSISTED LAB WORK October 08, 2024 5 :00am Additional Source Comments Reason for Visit (unrecogniz ed section and content) Reason Comments Post-op (Ophthalmology) Right Eye Specialty Diagnoses / Procedures Referred By Elvin leyva Referred To Contact HOSP INPATIENT Diagnoses Retinal detachment Acute retinal detachment Retinal detachment Procedures EVAL [facility] TREAT OT [facility] [address] [place] [address] Referral ID Status Reason Start Date Expiration Date Visits Re quested Visits Authorized [id number] 1 1 Reason Comments Hemorrhagic choroidal detachment [...] MDM 60-74 MINUTES Jared Velazquez PA-C [address] [place] [address] Referral ID Status Reason Start Date Expiration Date V isits Requested Visits Authorized [id number] Closed PCP Requested Referral 05/14/2022 05/14/2023 1 1 Reason Comments Follow Up Gyant interaction - F/U - attempt made. No answer. Reason Comments Follow Up Phone Call All Clear Specialty Diagnoses / Procedures Referred By Contac t Referred To Contact Radiology Diagnoses Localized swelling, mass and lump, neck Procedures CT soft tissue neck w IV contrast Jared Evans MD [address] [place] [phone] Referral ID Status Reason Start Date Expiration Date Visits Re quested Visits Authorized [id number] Closed 03/08/2023 04/07/2023 1 1 Specialty Diagnoses / Procedures Referred By Contac t Referred To Contact Cardiology Diagnoses Other specified soft tissue disorders Procedures Vascular US lower extremity venous duplex left Jared Evans MD [address] [place] [phone] Referral ID Status Reason Start Date Expiration Date V isits Requested Visits Authorized [id number] Pending Review 05/24/2023 05/23/2024 1 1 Specialty Diagnoses / Procedures Referred By Contac t Referred To Contact Radiology Diagnoses Abnormal findings on diagnostic imaging of other specified body structures Pain in left leg Procedures MR tibia fibula left w and wo IV contrast Jared Evans MD [address] [place] [phone] Referral ID Status Reason Start Date Expiration Date Visits Re quested Visits Authorized [id number] Closed 06/01/2023 05/31/2024 1 1 Reason Comments New Patient Mass left LE Specialty Diagnoses / Procedures Referred By Elvin t Referred To Contact Sports Medicine Diagnoses Pain in leg, unspecified Jared Evans MD [address] [place] [phone] [place] [address] Referral ID Status Reason Start Date Expiration Date Visits Re quested Visits Authorized [id number] Closed 07/06/2023 07/05/2024 1 1 Reason Comments Numbness Leg Swelling Specialty Diagnoses / Procedures Referred By Contac t Referred To Contact Diagnoses Right leg pain Peripheral arterial disease (HCC) Right leg weakness Atrial fibrillation, unspecified type (HCC) Procedures . Pratibha Avelar DO [address] [place] [address] [facility] Medical [address] [place] [phone] Referral ID Status Reason Start Date Expiration Date Visits Re quested Visits Authorized [id number] 1 1 Reason Comments Follow-up 1st follow up RLE me chanical thrombectomy 04/06/24 (Krzysztof) Reason Onset Date Comments Med Refill 04/27/2024 Specialty Diagnoses / Procedures Referred By Contac t Referred To Contact Diagnoses [I63.9] - Cerebral infarction [facility] [address] [place] [address] Referral ID Status Reason Start Date Expiration Date V isits Requested Visits Authorized [id number] New Request 06/20/2024 08/19/2024 Reason Comments Eye Problem Pt reports blurred v ision, dizziness, and headache. LNW 07/04/24 @ 2130. Hx of strokes x 2, HTN, Afib, and right eye retinal detachment. Specialty Diagnoses / Procedures Referred By Contac t Referred To Contact Diagnoses Retinal detachment, right Vision loss of right eye Procedures . Silvio Peres MD [address] [place] [address] Phone: tel: fax: [facility] EMERGENCY DEPT [address] [place] [phone] Phone: tel: Referral ID Status Reason Start Date Expiration Date Visits Re quested Visits Authorized [id number] 1 1 Reason Comments Eye Pain Right [...] OF VITREOUS, CHOROIDAL FLUID, PARS PLANA APPROACH [facility] [address] [address] Referral ID Status Reason Start Date Expiration Date Visits Re quested Visits Authorized [id number] 1 1 Reason Comments 1 week post [...] Vomiting and diarrhea Procedures . Abbi Long, [address] [place] [address] Phone: tel: fax: [facility] [address] [place] [address] Phone: tel: Referral ID Status Reason Start Date Expiration Date Visits Re quested Visits Authorized [id number] 1 1 Reason Comments Follow-up 3 month follow up, P AD check ([facility] [place]) Reason Comments Post-op (Ophthalmology) Right Eye 1 marisela h Reason Comments Post op OD Reason Comments Follow-up R leg pain with grea t toe wound-PVR and CTA w runoff 03/2024 Reason Comments Follow-up 1st follow up RLE an juliana, possible SFA/pop/tib angioplasty/stenting 11/22/24 Reason Comments 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; 2nd follow up RLE angio, SFA/pop/tib angioplasty/stenting 11/22/24 ([facility] [phone]) Reason Comments Post-op (Ophthalmology) Right Eye Retinal Detachment OD Eye Crusting OD In the mornings INFORMATION SOURCE (unrecogn ized section and content) DATE CREATED AUTHOR 03/13/2020 [facility] DATE CREATED AUTHOR AUTHOR'S ORGANIZ ATION 06/30/2022 [facility] DATE CREATED AUTHOR AUTHOR'S ORGANIZ ATION 07/10/2024 [facility] DATE CREATED AUTHOR AUTHOR'S ORGANIZ ATION 12/14/2024 [facility] DATE CREATED AUTHOR AUTHOR'S ORGANIZ ATION 01/05/2025 [facility] DATE CREATED AUTHOR AUTHOR'S ORGANIZ ATION 01/09/2025 [facility] DATE CREATED AUTHOR AUTHOR'S ORGANIZ ATION 01/24/2025 [facility] Source Comments (unrecognize d section and content) In the event this informatio n is protected by the Federal Confidentiality of Alcohol and Drug Abuse Patient Records regulations: The Federal rules restrict any use of the information to criminally investigate or prosecute any alcohol or drug abuse patient.[facility] the event this information is protected by the Federal Confidentiality of Alcohol and Drug Abuse Patient Records regulations: The Federal rules restrict any use of the information to criminally investigate or prosecute any alcohol or drug abuse patient.[facility] the event this information is protected by the Federal Confidentiality of Alcohol and Drug Abuse Patient Records regulations: The Federal rules restrict any use of the information to criminally investigate or prosecute any alcohol or drug abuse patient.[facility] the event this information is protected by the Federal Confidentiality of Alcohol and Drug Abuse Patient Records regulations: The Federal rules restrict any use of the information to criminally investigate or prosecute any alcohol or drug abuse patient.[facility] the event this information is protected by the Federal Confidentiality of Alcohol and Drug Abuse Patient Records regulations: The Federal rules restrict any use of the information to criminally investigate or prosecute any alcohol or drug abuse patient.[facility] the event this information is protected by the Federal Confidentiality of Alcohol and Drug Abuse Patient Records regulations: The Federal rules restrict any use of the information to criminally investigate or prosecute any alcohol or drug abuse patient.[facility] the event this information is protected by the Federal Confidentiality of Alcohol and Drug Abuse Patient Records regulations: The Federal rules restrict any use of the information to criminally investigate or prosecute any alcohol or drug abuse patient.[facility] Hospital[facility] the event this information is protected by the Federal Confidentiality of Alcohol and Drug Abuse Patient Records regulations: The Federal rules restrict any use of the information to criminally investigate or prosecute any alcohol or drug abuse patient.[facility] the event this information is protected by the Federal Confidentiality of Alcohol and Drug Abuse Patient Records regulations: The Federal rules restrict any use of the information to criminally investigate or prosecute any alcohol or drug abuse patient.[facility] the event this information is protected by the Federal Confidentiality of Alcohol and Drug Abuse Patient Records regulations: The Federal rules restrict any use of the information to criminally investigate or prosecute any alcohol or drug abuse patient.[facility] Hospital[facility] the event this information is protected by the Federal Confidentiality of Alcohol and Drug Abuse Patient Records regulations: The Federal rules restrict any use of the information to criminally investigate or prosecute any alcohol or drug abuse patient.[facility] Hospital[facility] the event this information is protected by the Federal Confidentiality of Alcohol and Drug Abuse Patient Records regulations: The Federal rules restrict any use of the information to criminally investigate or prosecute any alcohol or drug abuse patient.[facility] Hospital[facility] the event this information is protected by the Federal Confidentiality of Alcohol and Drug Abuse Patient Records regulations: The Federal rules restrict any use of the information to criminally investigate or prosecute any alcohol or drug abuse patient.[facility] Hospital[facility] the event this information is protected by the Federal Confidentiality of Alcohol and Drug Abuse Patient Records regulations: The Federal rules restrict any use of the information to criminally investigate or prosecute any alcohol or drug abuse patient.[facility] Hospital[facility] the event this information is protected by the Federal Confidentiality of Alcohol and Drug Abuse Patient Records regulations: The Federal rules restrict any use of the information to criminally investigate or prosecute any alcohol or drug abuse patient.[facility] Hospital[facility] the event this information is protected by the Federal Confidentiality of Alcohol and Drug Abuse Patient Records regulations: The Federal rules restrict any use of the information to criminally investigate or prosecute any alcohol or drug abuse patient.[facility] Hospital[facility] the event this information is protected by the Federal Confidentiality of Alcohol and Drug Abuse Patient Records regulations: The Federal rules restrict any use of the information to criminally investigate or prosecute any alcohol or drug abuse patient.[facility] Hospital[facility] the event this information is protected by the Federal Confidentiality of Alcohol and Drug Abuse Patient Records regulations: The Federal rules restrict any use of the information to criminally investigate or prosecute any alcohol or drug abuse patient.[facility] Hospital[facility] the event this information is protected by the Federal Confidentiality of Alcohol and Drug Abuse Patient Records regulations: The Federal rules restrict any use of the information to criminally investigate or prosecute any alcohol or drug abuse patient.[facility] Care Teams (unrecognized sec tion and content) Slate Splitter Relationship Specialty Start Date End Date Pcp, No PCP - General 01/30/22 08/17/22 Slate Splitter Relationship Specialty Start Date End Date Pcp, No PCP - General 01/30/22 08/17/22 Slate Splitter Relationship Specialty Start Date End Date Jared Evans MD [address] [place] [address] PCP - General Family Medicine 05/18/22 Slate Splitter Relationship Specialty Start Date End Date Jared Evans MD [address] [place] [phone] PCP - General Family Medicine 05/18/22 Slate Splitter Relationship Specialty Start Date End Date Jared Evans MD [address] [place] [phone] PCP - General Family Medicine 05/18/22 Slate Splitter Relationship Specialty Start Date End Date Jared Evans MD [facility] [place] [place] [address] PCP - General 03/06/20 Slate Splitter Relationship Specialty Start Date End Date Jared Evans MD [address] [place] [address] PCP - General 03/06/20 Slate Splitter Relationship Specialty Start Date End Date Jared Evans MD [address] [place] [address] PCP - General 03/06/20 Slate Splitter Relationship Specialty Start Date End Date Jared Evans MD [address] [place] [address] PCP - General 03/06/20 Slate Splitter Relationship Specialty Start Date End Date Jared Evans MD [address] [place] [address] PCP - General 03/06/20 Slate Splitter Relationship Specialty Start Date End Date Jared Evans MD [address] [place] [address] PCP - General 03/06/20 Slate Splitter Relationship Specialty Start Date End Date Jared Evans MD [address] [place] [address] PCP - General 03/06/20 Slate Splitter Relationship Specialty Start Date End Date Jared Evans MD [address] [place] [address] PCP - General 03/06/20 Slate Splitter Relationship Specialty Start Date End Date Jared Evans MD [address] [place] [address] PCP - General 03/06/20 Slate Splitter Relationship Specialty Start Date End Date Jared Evans MD [address] [place] [address] PCP - General 03/06/20 Slate Splitter Relationship Specialty Start Date End Date Jared Evans MD [address] [place] [address] PCP - General 03/06/20 Slate Splitter Relationship Specialty Start Date End Date Jared Evans MD [address] [place] [address] PCP - General 03/06/20 Slate Splitter Relationship Specialty Start Date End Date Jared Evans MD [address] [place], [place] [address] PCP - General 03/06/20 Henok Hernandez PA-C [address] [place] [address] Physician Picker Machine Operator Physician Picker Machine Operator 04/19/24 Slate Splitter Relationship Specialty Start Date End Date Jared Evans MD [address] [place] [address] PCP - General 03/06/20 Henok Hernandez PA-C [address] [place] [address] Physician Picker Machine Operator Physician Picker Machine Operator 04/19/24 Slate Splitter Relationship Specialty Start Date End Date Jared Evans MD [address] [place] [address] PCP - General 03/06/20 Henok Hernandez PA-C [address] [place] [address] Physician Picker Machine Operator Physician Picker Machine Operator 04/19/24 Slate Splitter Relationship Specialty Start Date End Date Jared Evans MD [address] [place] [address] PCP - General 03/06/20 Henok Hernandze PA-C [address] [place] [address] Physician Picker Machine Operator Physician Picker Machine Operator 04/19/24 Slate Splitter Relationship Specialty Start Date End Date Jared Evans MD [address] [place] [address] PCP - General 03/06/20 Henok Hernandez PA-C [address] [place] [address] Physician Picker Machine Operator Physician Picker Machine Operator 04/19/24 Slate Splitter Relationship Specialty Start Date End Date Jared Evans MD [address] [place] [address] PCP - General 03/06/20 Henok Santizo PA-C [address] [place] [address] Physician Picker Machine Operator Physician Picker Machine Operator 04/19/24 Slate Splitter Relationship Specialty Start Date End Date Jared Evans MD [address] [place] [address] PCP - General 03/06/20 Henok Santizo PA-C [address] [place] [address] Physician Picker Machine Operator Physician Picker Machine Operator 04/19/24 Slate Splitter Relationship Specialty Start Date End Date Jared Evans MD [address] [place] [address] PCP - General Family Medicine 05/18/22 Slate Splitter Relationship Specialty Start Date End Date Jared Evans MD [address] [place] [address] PCP - General Family Medicine 05/18/22 Slate Splitter Relationship Specialty Start Date End Date Jared Evans MD [address] [place] [address] PCP - General 03/06/20 Henok Santizo PA-C [address] [place] [address] Physician Picker Machine Operator Physician Picker Machine Operator 04/19/24 Slate Splitter Relationship Specialty Start Date End Date Jared Evans MD [address] [place] [address] PCP - General Family Medicine 05/18/22 Slate Splitter Relationship Specialty Start Date End Date Jared Evans MD [address] [place] [address] PCP - General Family Medicine 05/18/22 Slate Splitter Relationship Specialty Start Date End Date Jared Evans MD [address] [place] [address] PCP - General Family Medicine 05/18/22 Slate Splitter Relationship Specialty Start Date End Date Jared Evans MD [address] [place] [address] PCP - General Family Medicine 05/18/22 Slate Splitter Relationship Specialty Start Date End Date Jared Evans MD [address] [place] [address] PCP - General Family Medicine 05/18/22 Slate Splitter Relationship Specialty Start Date End Date Jared Evans MD [facility] [place] [address] PCP - General 03/06/20 Henok Santizo PA-C [address] [place] [address] Physician Picker Machine Operator Physician Picker Machine Operator 04/19/24 Slate Splitter Relationship Specialty Start Date End Date Jared Evans MD [address] [place] [address] PCP - General Family Medicine 05/18/22 Slate Splitter Relationship Specialty Start Date End Date Jared Evans MD [address] [place] [address] PCP - General Family Medicine 05/18/22 Slate Splitter Relationship Specialty Start Date End Date Jared Evans MD [address] [place] [address] PCP - General Family Medicine 05/18/22 Slate Splitter Relationship Specialty Start Date End Date Jared Evans MD [facility] [place] [address] PCP - General 03/06/20 Henok Santizo PA-C [address] [place] [address] Physician Picker Machine Operator Physician Picker Machine Operator 04/19/24 Slate Splitter Relationship Specialty Start Date End Date Jared Evans MD [address] [place] [address] PCP - General 03/06/20 Henok Santizo PA-C [address] [address] Physician Picker Machine Operator Physician Picker Machine Operator 04/19/24 Slate Splitter Relationship Specialty Start Date End Date Jared Evans MD [address] [place] [place] [address] PCP - General 03/06/20 Henok Santizo PA-C [address] [facility] [address] [place] [address] Physician Picker Machine Operator Physician Picker Machine Operator 04/19/[address] [address] [facility] 08/22/24 Slate Splitter Relationship Specialty Start Date End Date Jared Evans MD [address] [place] [address] PCP - General Family Medicine 05/18/22 Slate Splitter Relationship Specialty Start Date End Date Jared Evans MD [address] [place] [address] PCP - General Family Medicine 05/18/22 Team [...] October 08, 2024 End: October 08, 2024 Slate Splitter Relationship Specialty Start Date End Date Jared Evans MD [address] [place] [address] PCP - General 03/06/20 Henok Santizo PA-C [address] [facility] [address] [place] [address] Physician Picker Machine Operator Physician Picker Machine Operator 04/19/[address] [place] [address] [facility] 08/22/24 Slate Splitter Relationship Specialty Start Date End Date Jared Evans MD [address] [place] [address] PCP - General 03/06/20 Henok Santizo PA-C [address] [place] [address] Physician Picker Machine Operator Physician Picker Machine Operator 04/19/24 [facility] [address] [place] [address] [facility] 08/22/24 Slate Splitter Relationship Specialty Start Date End Date Jared Evans MD [address] [place] [address] PCP - General 03/06/20 Henok Santizo PA-C [address] [address] Physician Picker Machine Operator Physician Picker Machine Operator 04/19/24 [facility] [address] [place] [address] [facility] 08/22/24 Slate Splitter Relationship Specialty Start Date End Date Jared Evans MD [address] [place] [address] PCP - General 03/06/20 Henok Santizo PA-C [address] [address] Physician Picker Machine Operator Physician Picker Machine Operator 04/19/24 [facility] [address] [place] [address] [facility] 08/22/24 Slate Splitter Relationship Specialty Start Date End Date Jared Evans MD [address] [place] [address] PCP - General 03/06/20 Henok Santizo PA-C [address] [place] [address] Physician Picker Machine Operator Physician Picker Machine Operator 04/19/24 [facility] [address] [place] [address] [facility] 08/22/24 Slate Splitter Relationship Specialty Start Date End Date Megan Montoya [address] [place] [phone] PCP - General Internal Medicine 12/13/24 Henok Santizo PA-C [address] [place] [address] Physician Picker Machine Operator Physician Picker Machine Operator 04/19/24 [facility] [address] [place] [address] [facility] 08/22/24 Slate Splitter Relationship Specialty Start Date End Date AbielMegan [address] [place] [phone] PCP - General Internal Medicine 12/13/24 Henok Santizo PA-C [address] [place] [address] Physician Picker Machine Operator Physician Picker Machine Operator 04/19/24 Kristyn Blankenship MD [address] [place] [address] Consulting Physician Vascular Surgery 12/24/24 [facility] [address] [place] [address] [facility] 08/22/24 Slate Splitter Relationship Specialty Start Date End Date Jared Evans MD [address] [place] [address] PCP - General Family Medicine 05/18/22 Slate Splitter Relationship Specialty Start Date End Date Jared Evans MD [address] [place] [address] PCP - General Family Medicine 05/18/22 Scheduled [...] Provider: Sravanthi Nichole RN)1923 (Handoff - Provider: Noram Davis, RADHA) 0426 (Rate/Dose Verify - Provider: [...] sedation for opioid reversal - MUST notify production team advisor provider immediately after first dose, may give [...] Cecilia Lopes RN) 0909 (Given - Provider: Ceiclia Lopes RN) 0936 (Given - Provider: La [...] in 24 hours. 0918 (Given - Provider: Cecilia Lopes, RADHA) hydrALAZINE (Apresoline) injection 10 mg [...] BE BASED ON THE PRIMARY CLINICAL RECORDS. [employer] [facility]. provides no warranty or guarantee of the accuracy or completeness of information in this document.
[2025-01-28 08:39] LABS: INR Fingerstick 2.8
== END ==
LOC: OLS.SANC 05:00
PROVIDERS: Visit Provider Internal Medicine
DX: Z79.01 Long term (current) use of anticoagulants (principal)
CPT/HCPCS: 36416; 85610

== ENCOUNTER → 2025-01-31 05:00 | Outpatient (REF) | payer MEDICARE, SELFPAY ==
--- OUTSIDE RECORDS SUMMARY | 2025-01-31 04:02 | XMS RPT_ITS | CCD ---
Author Organization [facility] Care Team Providers Care Facility Manager Histology Name Role Phone Maryuri King Primary Care Provider Jared Evans Primary Care Provider Pcp, No Primary Care Provider Unavailabl Jared Barahona MD Primary Care Provider BERNIE MANE Admitting Unavailable IWONA CHU Attending Unavailable MING OLSON Consulting Unavailable SIM ELIZABETH Attending Unavailable PRIMO DODD Referring Unavailable Jared Evans MD Primary Care Provider Jared Evans MD Primary Care Provider Henok Hernandez PA-C Unavailable Henok Santizo PA-C Unavailable Jared Evans MD Primary Care Provider [phone] SYSTEM, PROVIDER NOT IN Referring Unavaila Megan Rice Attending Provider Unavailab Megan Porras Referring Provider Unavailab Megan Porras Attending Provider Unavailab Megan Porras Referring Provider Unavailab TORSTEN Hernandez Consulting Unavailable JARED EVANS Primary Care Unavailable FELICIA COREAS Admitting Unavailable DON EDWARDS Attending Unavailable Megan Montoya Primary Care Provider Kristyn Blankenship MD Unavailable [phone] RED HENDERSON Referring Unavail able JARED EVANS Primary Care Unavailable FELICIA LEVY Admitting Unavailable BRIANA PRITCHARD Attending Unavailable MAMMO, SAVANA A Attending Unavailable MAMMO, SAVANA A Referring Unavailable EVANS, BAGLEY N Primary Care Unavailable MAMMO, SAVANA A Referring Unavailable EVANS, [facility] Primary Care Unavailable MAMMO, SAVANA A Attending Unavailable EVANS, BAGLEY N Primary Care Unavailable MAMMO, SAVANA A Attending Unavailable EVANS, BAGLEY N Primary Care Unavailable MAMMO, SAVANA A Attending Unavailable EVANS, BAGLEY N Primary Care Unavailable MAMMO, SAVANA A Referring Unavailable EVANS, BAGLEY N Primary Care Unavailable MADHU, DEVIKA A Admitting Unavailable MADHU, DEVIKA A Attending Unavailable EVANS, BAGLEY N Primary Care Unavailable AZAR BURK Consulting Unavailable MAMMO, SAVANA A Admitting Unavailable MAMMO, SAVANA A Attending Unavailable EVANS, BAGLEY N Primary Care Unavailable MAMMO, SAVANA A Attending Unavailable SELF Referring Unavailable EVANS, [facility] Primary Care Unavailable EVANS, [facility] Primary Care Unavailable SELF Referring Unavailable EVANS, [facility] Primary Care Unavailable SELF Referring Unavailable EVANS, [facility] Primary Care Unavailable SELF Referring Unavailable EVANS, [facility] Primary Care Unavailable MAMMO, SAVANA A Attending Unavailable MAMMO, SAVANA A Referring Unavailable EVANS, [facility] Primary Care Unavailable SELF Referring Unavailable EVANS, [facility] Primary Care Unavailable EVANS, BAGLEY Primary Care Unavailable ANDRE WHIPPLE Consulting Unavailable PRATIBHA AVELAR Admitting Unavailable JORDIN ROLDAN Attending Unavailable EVANS, BAGLEY Primary Care Unavailable DEVIN, RED Attending Unavailable DEVIN, RED Admitting Unavailable EVANS, BAGLEY Primary Care Unavailable KRZYSZTOF, KRISTYN Admitting Unavailable KRZYSZTOF, KRISTYN Attending Unavailable EVANS, BAGLEY Primary Care Unavailable EVANS, BAGLEY Primary Care Unavailable EVANS, BAGLEY Primary Care Unavailable TRISTA, MARTHA Admitting Unavailable BARAGANADIRDEVIKA Attending Unavailable EVANS, BAGLEY Primary Care Unavailable DARLYNHENOK Attending Unavailable EVANS, BAGLEY Primary Care Unavailable KRZYSZTOF, KRISTYN Attending Unavailable EVANS, BAGLEY Primary Care Unavailable KRZYSZTOF, KRISTYN Attending Unavailable MERGY, ANTHONY K Referring Unavailable EVANS, BAGLEY Primary Care Unavailable EVANS, BAGLEY Primary Care Unavailable EVANS, BAGLEY Primary Care Unavailable MARIANA KING Referring Unavailable EVANS, BAGLEY Primary Care Unavailable MARIANA KING Referring Unavailable MEGAN MONTOYA Primary Care Unavailable KRZYSZTOF, KRISTYN Referring Unavailable KRZYSZTOF, KRISTYN Attending Unavailable EVANS, JARED Primary Care Unavailable EVANS, JARED Referring Unavailable EVANS, JARED Attending Unavailable EVANS, JARED Primary Care Unavailable EVANS, JARED Primary Care Unavailable EVANS, JARED Primary Care Unavailable GODIOS, HARMONY Attending Unavailable DARLYN, HENOK Attending Unavailable EVANS, JARED Primary Care Unavailable EVANS, JARED Primary Care Unavailable EVANS, JARED Referring Unavailable HERMILA PADILLA Attending Unavailable KRZYSZTOF, KRISTYN Attending Unavailable KATSAROS, PETER Primary Care Unavailable Katsaros OLS, Megan Attending Unavailable Katsaros OLS, Megan Attending Unavailable Katsaros OLS, Megan Attending Unavailable Katsaros, Megan Referring Unavailable Katsaros, Megan Attending Unavailable Katsaros OLS, Megan Attending [...] OLS, Megan Referring Unavailable Katsaros OLS, Megan Referring Unavailable Katsaros OLS, Megan Attending Unavailable Allergies Allergy Classification Reported Allergen(s) Allergy Type Date of Onset Reaction(s) Facility (20 sources) Amoxicillin Drug Allergy 0 [place] (20 sources) fluticasone / salmeterol Drug Allergy 0 Intolerance [place] (20 sources) Acetaminophen / oxyCODONE; Translations: [OXYCODONE-ACETAM INOPHEN] Drug Allergy 2 Itching [facility] Other [place] [facility] (9 sources) Ampicillin; Translations: [AMPICILLIN] Drug Allergy 4 Unknown [facility] (11 sources) Amoxicillin-Pot Clavulanate Drug Allergy 5 [facility] (1 source) FLUTICASONE PROPION-SALMETERO L; Translations: [FLUTICASONE PROPION-SALMETERO L] Propensity to adverse reactions to drug (disorder) 0 [facility] Repository Medications Current Medications Medication [...] for pain for up to 3 days. [id number] 200 actuat albuterol 0.09 mg/actuat metered dose [...] Start: 06-28-2022 take 2 tablets by mo [facility] twice daily, then take 1 tablet by [...] Comment on above: Take 1 tablet by [facility] three times daily. atorvastatin 80 mg oral [...] on above: Take 2 tablets by mo [facility] every 12 hours for 3 days, THEN [...] Comment on above: Take 1 tablet by [facility] every 12 hours for 7 days. 0.5 [...] hours PRN, severe pain (7-10), Starting on Tue04/06/24 at 0726, If oral and IV narcotics [...] moderate pain (4-6), Starting on Tue04/04/24 at 2033, For 2 doses ammonium lactate 120 mg/ml topical cream (1 source) ammonium lactate (Amlactin) 12 % cream Apply topically if needed for dry skin. Active lactobacillus rhamnosus gg [id number] unt oral capsule (2 sources) Start: 06-29-20 End: 07-29-19 23 take 1 capsule by mouth once daily lactobacillus rhamnosus (CULTURELLE) 10 billion cell capsule Take 1 capsule by mouth once daily. 30 capsule 0 06/29/2022 07/29/2022 Active Comment on above: Take 1 capsule by [facility] once daily. lidocaine 0.04 mg/mg medicated patch [...] solution (11 sources) alpha-1 Adrenergic Agonist Start: 025 End: PHENYLephrine 2.5 % 1 drop (AK-DILATE, KEL-SYNEPHRINE) Start: 01-02-2025 End: 01-02-2025 1 drop, RIGHT EYE, DIRECT ED, Starting on Tue01/02/25 at 1100, Until Tue01/02/25 at 2259, Administer for dilation PROTECT FROM LIGHT, [facility] Start: 10-01-2024 End: 10-01-2024 PHENYLephrine 2.5 % 1 Drop ( AK-DILATE, KEL-SYNEPHRINE) Start: 10-01-2024 End: 10-01-2024 1 Drop, RIGHT EYE, DIRECT ED, Starting on 10/01/24 at 1030, Until Tue10/01/24 at 2229, Administer for dilation PROTECT FROM LIGHT, [facility] Start: 09-05-2024 End: 09-05-2024 PHENYLephrine 2.5 % 1 Drop ( AK-DILATE, KEL-SYNEPHRINE) Start: 09-05-2024 End: 09-05-2024 1 Drop, RIGHT EYE, DIRECT ED, Starting on Tue09/05/24 at 1030, Until Tue09/05/24 at 2229, Administer for dilation PROTECT FROM LIGHT, [facility] Start: 08-01-2024 End: 08-02-2024 PHENYLephrine 2.5 % 1 Drop ( AK-DILATE, KEL-SYNEPHRINE) Start: 08-01-2024 End: 08-02-2024 1 Drop, RIGHT EYE, DIRECT ED, Starting on Tue08/01/24 at 1300, Until Maida 08/02/24 at 0059, Administer for dilation PROTECT FROM LIGHT, [facility] Start: 07-16-2024 End: 07-16-2024 PHENYLephrine 2.5 % 1 Drop ( AK-DILATE, KEL-SYNEPHRINE) Start: 07-16-2024 End: 07-16-2024 1 Drop, RIGHT EYE, DIRECT ED, Starting on 07/16/24 at 0900, Until 07/16/24 at 2059, Administer for dilation PROTECT FROM LIGHT Start: 07-09-2024 End: 07-09-2024 PHENYLephrine 2.5 % 1 Drop ( AK-DILATE, KEL-SYNEPHRINE) polyethylene glycol 3350 46635 mg powder for oral solution (11 sources) [...] (6 times per day), First dose on [facility] 07/05/24 at 1210 predniSONE 20 mg oral [...] on Tue07/16/24 at 0900, Until Tue07/16/24 at 205, Administer for pneumo tonometry, tonopen tonometry, or [...] on above: Take 1 tablet by donna four times daily. sulfamethoxazole 800 mg / [...] Until Tue07/16/24 at 2059, Administer for dilation Start: 07-09-2024 End: 07-09-2024 [...] twenty-four hours 1,000 mg, Oral, Once, On [facility] 11/22/24 at 0830, For 1 dose, Preprocedure, Maximum dose of acetaminophen is 4000 mg from all sources in 24 hours. Do not administer if patient has taken tylenol Start: 08-03-2024 End: 08-16-2024 take 1 tablet by mouth every six hours as needed for pain and fever acetaminophen (Tylenol) tablet 650 mg Start: 07-17-2024 take 2 tablets by mo ut four times daily acetaminophen (Tylenol) 325 MG [...] Start: 06-28-2022 take 2 tablets by mo [facility] every six hours acetaminophen (TYLENOL) 325 mg tablet Take 2 tablets by mouth every 6 hours. 07/17/2024 Active acetaminophen (T YLENOL) 325 mg cap Take by mouth. 0 Active Comment on above: Take by mouth. Take 2 tablets by mo [facility] every 6 hours as needed for pain. [...] sodium chloride 0.9 % 100 mL IVPB (Add-Smackover) (2 sources) Start: End: take 3000 mg intravenously every six hours 3,000 mg, IntraVENous, at 200 mL/hr, Administer over 30 Minutes, Every 6 hours, First dose on Tue08/03/24 at 1200, For 18 doses, ADD-Smackover bag, Suspected Indication (Select all that apply): Aspiration Pneumonia aspirin 81 mg delayed release oral tablet (8 sources) Platelet Aggregation Inhibitor, Nonsteroidal Anti-inflammatory Drug Start: End: take 81 mg by mouth once 81 mg, Oral, Once, On [place] 11/22/24 [...] Anesthetic Start: 03-07-2020 End: 03-07-2020 lidocaine-EPINEPHrine 1 percent-1:[id number] injection 8 mL ergocalciferol 1.25 mg oral capsule (3 sources) Provitamin D2 Compound End: 07-05-2024 take 1 capsule by mouth every week ergocalciferol (Vitamin D2) 1.25 MG (02387 UT) capsule Take 1.25 mg by mouth [...] Start: 05-19-2023 take 1 puff(s) by mo ut once daily Trelegy Ellipta 100-62.5-25 MCG/ACT aerosol [...] IntraVENous, IMG once PRN, contrast, Starting on Tue04/03/24 at 2112, For 1 dose Start: 03-08-2023 [...] opioid reversal, pinpoint pupils, Starting on Maida 07/05/24 at 0540, administer IV PRN for oversedation, [...] (4-6), Starting on Ma[place] 07/05/24 at 1444 Start: 04-13-2024 End: 04-18-2024 [...] on above: Take 1 tablet by donna twice daily before meals (0600/1600). prochlorperazine 5 [...] 0430, For 1 dose Start: 07-05-2024 End: 07-07-2024 take 50 mL intravenously every hour 50 [...] on Tue04/03/24 at 1820 sodium zirconium cyclosilicate 70837 mg powder for oral suspension (2 sources) [...] lower extremity (HCC) Take as directed by [facility] Anticoagulation Clinic (90 tablets = 90 [...] lower extremity (HCC) Take as directed by [facility] Anticoagulation Clinic (45 tablets= 30 day supply) 45 tablet 1 04/27/2024 Active Start: 04-09-2024 7.5 mg, Oral, Once Warfarin, On Maida 04/12/24 at 1700, For 1 dose Start: 04-07-2024 warfarin (Coum jay ajy) 5 MG tablet Take 1 tablet (5mg) on 04/13 in the evening Take 1.5 tablets (7.5mg) on 04/14 Take 1 tablet (5mg) on 04/15 Follow up with 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; Translations: [assisted (current) use of anticoagulants] Onset: 2 Episodic Other aftercare (1 source) Other alf (current) drug therapy; Translations: [Other alf (current) drug therapy] Onset: 5 Episodic Other [...] foot, limited to breakdown of skin (HCC) 12-05-2024 Unclassified (4 sources) PAD (peripheral artery disease) (HCC) 12-05-2024 Viral infection (20 sources) Disease caused by 2019-nCoV; Translations: [COVID-19] Onset: 2 06-16-2022 Episodic Results Test Name Value Interpretation Reference Range Facility Protime w/INR Fingerstickon 01-28-2025 INR Coag (PPP) [Relative time] 2.8 {INR} Normal [facility] Comment on above: Result Comment: Crit ical Value > 4.0 Performed By: #### L 9200.0000 #### [facility] [address] [place], [address] Protime Coagsen 29.1 SEC High 11.7-14.9 [facility] Comment on above: Performed By: #### L 9200.0000 #### [facility] [address] [place], [address] Protime w/INR Fingerstickon 01-25-2025 INR Coag (PPP) [Relative time] 3.4 {INR} Normal [facility] Comment on above: Result Comment: Crit ical Value > 4.0 Performed By: #### L 9200.0000 #### [facility] [address] [place], [address] Protime Coagsen 34.5 SEC High 11.7-14.9 [facility] Comment on above: Performed By: #### L 9200.0000 #### [facility] [address] [place], [address] Prothrombin Time w/INRon INR Coag (PPP) [Relative time] 2.8 {INR} Normal [facility] Comment on above: Order Comment: 104-1 Performed By: #### L 300.3900 #### [facility] [address] [place], [address] PT Coag (PPP) [Time] 30.5 s High 11.7-14.9 [facility] Comment on above: Order Comment: 104-1 Performed By: #### L 300.3900 #### [facility] [address] [place], [address] Prothrombin Time w/INRon INR Coag (PPP) [Relative time] 2.5 {INR} Normal [facility] Comment on above: Order Comment: 104.1 Performed By: #### L 9200.0000 #### [facility] [address] [place], [address] PT Coag (PPP) [Time] 27.1 s High 11.7-14.9 [facility] Comment on above: Order Comment: 104.1 Performed By: #### L 9200.0000 #### [facility] [address] [place], [address] Prothrombin Time w/INRon INR Coag (PPP) [Relative time] 2.4 {INR} Normal [facility] Comment on above: Order Comment: DID F INGERSTICK TWICE, BOTH TIMES GOT A 'NO CLOT DETECTED'MESSAGE, SO VA A VENOUS SAMPLE. SPOKE WITH NURSE RIVKA Performed By: #### L 9200.0000 #### [facility] [address] [place], [address] PT Coag (PPP) [Time] 26.9 s High 11.7-14.9 [facility] Comment on above: Order Comment: DID F INGERSTICK TWICE, BOTH TIMES GOT A 'NO CLOT DETECTED'MESSAGE, SO AV A VENOUS SAMPLE. SPOKE WITH NURSE RIVKA Performed By: #### L 9200.0000 #### [facility] [address] [place], [address] Protime w/INR Fingerstickon 01-17-2025 INR Coag (PPP) [Relative time] 1.9 {INR} Normal [facility] Comment on above: Result Comment: Crit ical Value > 4.0 Performed By: #### L 9200.0000 #### [facility] [address] [place], [address] Protime Coagsen 20.8 SEC High 11.7-14.9 [facility] Comment on above: Performed By: #### L 9200.0000 #### [facility] [address] [place], [address] Protime w/INR Fingerstickon 01-16-2025 INR Coag (PPP) [Relative time] 1.5 {INR} Normal [facility] Comment on above: Result Comment: Crit ical Value > 4.0 Performed By: #### L 9200.0000 #### [facility] [address] [place], [address] Protime Coagsen 17.2 SEC High 11.7-14.9 [facility] Comment on above: Performed By: #### L 9200.0000 #### [facility] [address] [place], [address] Prothrombin Time w/INRon INR Coag (PPP) [Relative time] 1.2 {INR} Normal [facility] Comment on above: Performed By: #### L 100.0500, L500.2500 #### [facility] [address] [place], [address] PT Coag (PPP) [Time] 15.4 s High 11.7-14.9 [facility] Comment on above: Performed By: #### L 100.0500, L500.2500 #### [facility] [address] [place], [address] 36on 01-08-2025 36 Normal [facility] Basic Metabolic Profile (BMP )on 01-07-2025 BUN/CRE 17.7 RATIO Normal 10-20 [facility] Comment on above: Order Comment: 104.1 Performed By: #### L 500.2500, L100.0500 #### [facility] [address] [place], [address] Calcium [Mass/Vol] 9.1 mg/dL Normal 7.6-11.0 [facility] Comment on above: Order Comment: 104.1 Performed By: #### L 500.2500, L100.0500 #### [facility] [address] [place], [address] Chloride [Moles/Vol] 109 mmol/L High 98-108 [facility] Comment on above: Order Comment: 104.1 Performed By: #### L 500.2500, L100.0500 #### [facility] [address] [place], [address] CO2 [Moles/Vol] 19.7 mmol/L Low 21.0-32.0 [facility] Comment on above: Order Comment: 104.1 Performed By: #### L 500.2500, L100.0500 #### [facility] [address] [place], [address] Creatinine [Mass/Vol] 1.15 mg/dL Normal 0.70-1.20 [facility] Comment on above: Order Comment: 104.1 Performed By: #### L 500.2500, L100.0500 #### [facility] [address] [place], [address] GAP 10 Normal 5-15 [facility] Comment on above: Order Comment: 104.1 Performed By: #### L 500.2500, L100.0500 #### [facility] [address] [place], [address] GFR/1.73 sq M.predicted among non-blacks MDRD (S/P/Bld) [Vol rate/Area] 47 mL/min/{1.73_m2} Low >60 [facility] Comment on above: Order Comment: 104.1 Result Comment: mL/m in/1.73m2 CKD-EPI Creatinine Equation (2020) Performed By: #### L 500.2500, L100.0500 #### [facility] [address] [place], [address] Glucose [Mass/Vol] 87 mg/dL Normal 70-99 [facility] Comment on above: Order Comment: 104.1 Performed By: #### L 500.2500, L100.0500 #### [facility] [address] [place], [address] Potassium [Moles/Vol] 5.0 mmol/L Normal 3.3-5.1 [facility] Comment on above: Order Comment: 104.1 Performed By: #### L 500.2500, L100.0500 #### [facility] [address] [place], [address] Sodium [Moles/Vol] 138 mmol/L Normal 133-145 [facility] Comment on above: Order Comment: 104.1 Performed By: #### L 500.2500, L100.0500 #### [facility] [address] [place], [address] Urea nitrogen [Mass/Vol] 20 mg/dL High 4-19 [facility] Comment on above: Order Comment: 104.1 Performed By: #### L 500.2500, L100.0500 #### [facility] [address] [place], [address] CBC-Complete Blood Cnt No Di ffon 01-07-2025 Erythrocyte distribution width (RBC) [Ratio] 16.5 % High 11.6-14.6 [facility] Comment on above: Order Comment: 104.1 Performed By: #### L 500.2500, L100.0500 #### [facility] [address] [place], [address] Hematocrit (Bld) [Volume fraction] 30.4 % Low 37-47 [facility] Comment on above: Order Comment: 104.1 Performed By: #### L 500.2500, L100.0500 #### [facility] [address] [place], [address] Hemoglobin (Bld) [Mass/Vol] 9.8 g/dL Low 12.0-15.0 [facility] Comment on above: Order Comment: 104.1 Performed By: #### L 500.2500, L100.0500 #### [facility] [address] [place], [address] MCH (RBC) [Entitic mass] 29.9 pg Normal 27.0-32.0 [facility] Comment on above: Order Comment: 104.1 Performed By: #### L 500.2500, L100.0500 #### [facility] [address] [place], [address] MCHC (RBC) [Mass/Vol] 32.2 g/dL Normal 32-36 [facility] Comment on above: Order Comment: 104.1 Performed By: #### L 500.2500, L100.0500 #### [facility] [address] [place], [address] MCV (RBC) [Entitic vol] 92.7 fL Normal 81-99 [facility] Comment on above: Order Comment: 104.1 Performed By: #### L 500.2500, L100.0500 #### [facility] [address] [place], [address] Platelet mean volume (Bld) [Entitic vol] 10.0 fL Normal 6.2-12.0 [facility] Comment on above: Order Comment: 104.1 Performed By: #### L 500.2500, L100.0500 #### [facility] [address] [place], [address] Platelets (Bld) [#/Vol] 254 10*3/uL Normal 150-450 [facility] Comment on above: Order Comment: 104.1 Performed By: #### L 500.2500, L100.0500 #### [facility] [address] [place], [address] RBC (Bld) [#/Vol] 3.28 10*6/uL Low 4.2-5.4 [facility] Comment on above: Order Comment: 104.1 Performed By: #### L 500.2500, L100.0500 #### [facility] [address] [place], [address] RDW SD 55.9 fl High 35.1-43.9 [facility] Comment on above: Order Comment: 104.1 Performed By: #### L 500.2500, L100.0500 #### [facility] [address] [place], [address] WBC (Bld) [#/Vol] 4.5 10*3/uL Normal 4.4-11.0 [facility] Comment on above: Order Comment: 104.1 Performed By: #### L 500.2500, L100.0500 #### [facility] [address] [place], [address] 36on 01-04-2025 36 Normal [facility] 36 Normal [facility] Progress Noteon 12-24-2024 Progress Note Normal [facility] No Panel Informationon 12-13 Left MICHELLE 0.71 [facility] Left arm BP 121 mmHg [facility] Left Dist Outflow EDV 6.5 cm/s [facility] Left Dist Outflow PSV 51.5 cm/s [facility] Left dorsalis pedis BP 67 mmHg [facility] Left Graft 1 Proximal Popliteal Stent [facility] Left Inflow Artery EDV 8.5 cm/s [facility] [facility] Left Inflow Artery PSV 46.5 cm/s [facility] Left Mid Outflow EDV 6.5 cm/s [facility] Left Mid Outflow PSV 58.1 cm/s [facility] Left Outflow Vessel EDV 9.8 cm/s S [facility] Left Outflow Vessel PSV 89.9 cm/s S [facility] Left posterior tibial 94 mmHg [facility] Left Prox Outflow EDV 6.5 cm/s [facility] Left Prox Outflow PSV 51.5 cm/s [facility] Right MICHELLE 0.96 [facility] Right arm BP 133 mmHg [facility] Right YARITZA dist PSV 53.6 cm/s [facility] Right VOCATIONAL REHAB CONSULTANT dist PSV 144.6 cm/s [facility] Right VOCATIONAL REHAB CONSULTANT mid AP diameter 0.92 cm [facility] Right VOCATIONAL REHAB CONSULTANT mid TR diameter 0.89 cm [facility] Right VOCATIONAL REHAB CONSULTANT prox PSV 133.7 cm/s [facility] Right Dist Outflow EDV 0 cm/s [facility] Right Dist Outflow PSV 45.3 cm/s [facility] Right dorsalis pedis BP 107 mmHg [facility] Right EIA dist PSV 144.6 cm/s [facility] Right Graft 1 Distal SFA Stent [facility] Right Inflow Artery EDV 4.6 cm/s [facility] Right Inflow Artery PSV 100.7 cm/s [facility] Right Mid Outflow EDV 2.3 cm/s [facility] Right Mid Outflow PSV 66.2 cm/s [facility] Right Outflow Vessel EDV 2.3 cm/s [facility] Right Outflow Vessel PSV 56.4 cm/s [facility] Right PFA AP diameter 0.59 cm [facility] Right PFA TR diameter 0.73 cm [facility] Right Pop A dist PSV 157.6 cm/s [facility] Right Pop A mid PSV 89.9 cm/s [facility] Right popliteal artery mid AP diameter 0.52 cm [facility] Right popliteal artery mid TR diameter 0.6 cm [facility] Right posterior tibial 128 mmHg [facility] Right Prox Outflow EDV 0 cm/s [facility] Right Prox Outflow PSV 68.6 cm/s [place] Right EP TECHNOLOGIST dist PSV 48.1 cm/s [facility] Right [...] Right SFA proximal AP diameter 0.55 cm [facility] Right SFA proximal TR diameter 0.61 cm [facility] Stents in SFA and popliteal artery are [...] CPACS Progress Noteon 12-05-2024 Progress Note Normal [facility] 36on 11-23-2024 36 Normal [facility] 36 Normal [facility] 36 Normal [facility] [id number] 11-22-2024 [id number] Normal [facility] Anesthesia Noteon 11-22-2024 Anesthesia Note Normal [facility] No Panel Informationon 11-22 There is no interpretation needed for this exam. IMAGING Nursing Noteon 11-22-2024 Nursing Note Patient arrived on unit. Name and date verified. Attached to monitors. Vital signs stable. Normal [facility] Op Noteon 11-22-2024 Op Note Normal [facility] Progress Noteon 11-22-2024 Progress Note POA called to bedsid e and discharge instructions reviewed. Groin site remains intact and LE distal pulses unchanged via assessment with doppler. Transportation called for scrap picker Normal [facility] Progress Note POA given updated vi a phone call. Made aware of patient's orders to lay flat until 1325. Daughter in law stated that she will call care facility later to make arrangements for transportation back. Normal [facility] Anesthesia Noteon 11-21-2024 Anesthesia Note Normal [facility] Basic Metabolic Profile (BMP )on 11-15-2024 BUN/CRE 18.3 RATIO Normal 10-20 [facility] Comment on above: Order Comment: 104-1 Performed By: #### L 9200.0000 #### [facility] [address] [place], [address] Calcium [Mass/Vol] 9.0 mg/dL Normal 7.6-11.0 [facility] Comment on above: Order Comment: 104-1 Performed By: #### L 9200.0000 #### [facility] [address] [place], [address] Chloride [Moles/Vol] 108 mmol/L Normal 98-108 [facility] Comment on above: Order Comment: 104-1 Performed By: #### L 9200.0000 #### [facility] [address] [place], [address] CO2 [Moles/Vol] 22.1 mmol/L Normal 21.0-32.0 [facility] Comment on above: Order Comment: 104-1 Performed By: #### L 9200.0000 #### [facility] [address] [place], [address] Creatinine [Mass/Vol] 1.03 mg/dL Normal 0.70-1.20 [facility] Comment on above: Order Comment: 104-1 Performed By: #### L 9200.0000 #### [facility] [address] [place], [address] GAP 9 Normal 5-15 [facility] Comment on above: Order Comment: 104-1 Performed By: #### L 9200.0000 #### [facility] [address] [place], [address] GFR/1.73 sq M.predicted among non-blacks MDRD (S/P/Bld) [Vol rate/Area] 53 mL/min/{1.73_m2} Low >60 [facility] Comment on above: Order Comment: 104- Result Comment: mL/m in/1.73m2 CKD-EPI Creatinine Equation (2020) Performed By: #### L 9200.0000 #### [facility] [address] [place], [address] Glucose [Mass/Vol] 91 mg/dL Normal 70-99 [facility] Comment on above: Order Comment: 104-1 Performed By: #### L 9200.0000 #### [facility] [address] [place], [address] Potassium [Moles/Vol] 4.8 mmol/L Normal 3.3-5.1 [facility] Comment on above: Order Comment: 104-1 Performed By: #### L 9200.0000 #### [facility] [address] [place], [address] Sodium [Moles/Vol] 138 mmol/L Normal 133-145 [facility] Comment on above: Order Comment: 104-1 Performed By: #### L 9200.0000 #### [facility] [address] [place], [address] Urea nitrogen [Mass/Vol] 19 mg/dL Normal 4-19 [facility] Comment on above: Order Comment: 104-1 Performed By: #### L 9200.0000 #### [facility] [address] [place], [address] CBC W/Diff, Automatedon 05-0 -2024 Absolute Lymph 1.77 X10 3/uL Normal 0.83-4.51 [facility] Comment on above: Order Comment: 104-1 Performed By: #### L 9200.0000 #### [facility] [address] [place], [address] Absolute Neut 3.2 X10 3/uL Normal 2.0-7.7 [facility] Comment on above: Order Comment: 104-1 Performed By: #### L 9200.0000 #### [facility] [address] [place], [address] Basophils/100 WBC (Bld) 0.7 % Normal 0-1 [facility] Comment on above: Order Comment: 104-1 Performed By: #### L 9200.0000 #### [facility] [address] [place], [address] Eosinophils/100 WBC (Bld) 2.9 % Normal 0-5 [facility] Comment on above: Order Comment: 104-1 Performed By: #### L 9200.0000 #### [facility] [address] [place], [address] Erythrocyte distribution width (RBC) [Ratio] 18.8 % High 11.6-14.6 [facility] Comment on above: Order Comment: 104-1 Performed By: #### L 9200.0000 #### [facility] [address] [place], [address] Hematocrit (Bld) [Volume fraction] 30.9 % Low 37-47 [facility] Comment on above: Order Comment: 104-1 Performed By: #### L 9200.0000 #### [facility] [address] [place], [address] Hemoglobin (Bld) [Mass/Vol] 9.8 g/dL Low 12.0-15.0 [facility] Comment on above: Order Comment: 104-1 Performed By: #### L 9200.0000 #### [facility] [address] [place], [address] IG% 0.200 Normal 0.0-0.9 [facility] Comment on above: Order Comment: 104-1 Result Comment: IG% - Immature Granulocytes (promyelocytes, myelocytes and metamyelocytes) > 1% indicates that a LEFT SHIFT is Present. Performed By: #### L 9200.0000 #### [facility] [address] [place], [address] Lymphocytes/100 WBC (Bld) 30.3 % Normal 19-41 [facility] Comment on above: Order Comment: 104-1 Performed By: #### L 9200.0000 #### [facility] [address] [place], [address] MCH (RBC) [Entitic mass] 28.4 pg Normal 27.0-32.0 [facility] Comment on above: Order Comment: 104-1 Performed By: #### L 9200.0000 #### [facility] [address] [place], [address] MCHC (RBC) [Mass/Vol] 31.7 g/dL Low 32-36 [facility] Comment on above: Order Comment: 104-1 Performed By: #### L 9200.0000 #### [facility] [address] [place], [address] MCV (RBC) [Entitic vol] 89.6 fL Normal 81-99 [facility] Comment on above: Order Comment: 104-1 Performed By: #### L 9200.0000 #### [facility] [address] [place], [address] Monocytes/100 WBC (Bld) 11.3 % High 0-10 [facility] Comment on above: Order Comment: 104-1 Performed By: #### L 9200.0000 #### [facility] [address] [place], [address] Neutrophils/100 WBC (Bld) 54.6 % Normal 47-70 [facility] Comment on above: Order Comment: 104-1 Performed By: #### L 9200.0000 #### [facility] [address] [place], [address] Nucleated RBC (Bld) [#/Vol] 0 10*3/uL Normal 0-5 [facility] Comment on above: Order Comment: 104-1 Performed By: #### L 9200.0000 #### [facility] [address] [place], [address] Platelet mean volume (Bld) [Entitic vol] 10.2 fL Normal 6.2-12.0 [facility] Comment on above: Order Comment: 104-1 Performed By: #### L 9200.0000 #### [facility] [address] [place], [address] Platelets (Bld) [#/Vol] 303 10*3/uL Normal 150-450 [facility] Comment on above: Order Comment: 104-1 Performed By: #### L 9200.0000 #### [facility] [address] [place], [address] RBC (Bld) [#/Vol] 3.45 10*6/uL Low 4.2-5.4 [facility] Comment on above: Order Comment: 104-1 Performed By: #### L 9200.0000 #### [facility] [address] [place], [address] RDW SD 61.8 fl High 35.1-43.9 [facility] Comment on above: Order Comment: 104-1 Performed By: #### L 9200.0000 #### [facility] [address] [place], [address] WBC (Bld) [#/Vol] 5.8 10*3/uL Normal 4.4-11.0 [facility] Comment on above: Order Comment: 104-1 Performed By: #### L 9200.0000 #### [facility] [address] [place], [address] 36on 11-14-2024 36 Normal [facility] 36on 11-08-2024 36 Fidel called to state that she spoke with Mel and she would like to proceed with angio. Normal [facility] Progress Noteon 11-05-2024 Progress Note Normal [facility] Anion gap in Serum or Plasma Ordered By: Megan Montoya on 10-08-2024 Anion gap [Moles/Vol] 12 mmol/L 5- [facility] BUN/creatinine ratioOrdered By: Megan Montoya on 10-08-2024 Urea nitrogen/Creatinine [Mass ratio] 16.5 mg/mg - [facility] Basic Metabolic Profile (BMP )on 10-08-2024 BUN/CRE 16.5 RATIO Normal - [facility] Comment on above: Order Comment: 104.1 Performed By: #### L 100.0500, L500.2500 #### [facility] [address] [place], [address] Calcium [Mass/Vol] 9.0 mg/dL Normal 7.6-11.0 [facility] Comment on above: Order Comment: 104.1 Performed By: #### L 100.0500, L500.2500 #### [facility] [address] [place], [address] Chloride [Moles/Vol] 106 mmol/L Normal 98-108 [facility] Comment on above: Order Comment: 104.1 Performed By: #### L 100.0500, L500.2500 #### [facility] [address] [place], [address] CO2 [Moles/Vol] 20.0 mmol/L Low 21.0-32.0 [facility] Comment on above: Order Comment: 104.1 Performed By: #### L 100.0500, L500.2500 #### [facility] [address] [place], [address] Creatinine [Mass/Vol] 1.05 mg/dL Normal 0.70-1.20 [facility] Comment on above: Order Comment: 104.1 Performed By: #### L 100.0500, L500.2500 #### [facility] [address] [place], [address] GAP 12 Normal 5-15 [facility] Comment on above: Order Comment: 104.1 Performed By: #### L 100.0500, L500.2500 #### [facility] [address] [place], [address] GFR/1.73 sq M.predicted among non-blacks MDRD (S/P/Bld) [Vol rate/Area] 52 mL/min/{1.73_m2} Low >60 [facility] Comment on above: Order Comment: 104.1 Result Comment: mL/m in/1.73m2 CKD-EPI Creatinine Equation (2020) Performed By: #### L 100.0500, L500.2500 #### [facility] [address] [place], [address] Glucose [Mass/Vol] 98 mg/dL Normal 70-99 [facility] Comment on above: Order Comment: 104.1 Performed By: #### L 100.0500, L500.2500 #### [facility] [address] [place], [address] Potassium [Moles/Vol] 4.3 mmol/L Normal 3.3-5.1 [facility] Comment on above: Order Comment: 104.1 Result Comment: Hemo lysis present, Results??could be affected. ?? Performed By: #### L 100.0500, L500.2500 #### [facility] [address] [place], [address] Sodium [Moles/Vol] 137 mmol/L Normal 133-145 [facility] Comment on above: Order Comment: 104.1 Performed By: #### L 100.0500, L500.2500 #### [facility] [address] [place], [address] Urea nitrogen [Mass/Vol] 17 mg/dL Normal 4-19 [facility] Comment on above: Order Comment: 104.1 Performed By: #### L 100.0500, L500.2500 #### [facility] [address] [place], [address] CBC-Complete Blood Cnt No Di ffon 10-08-2024 Erythrocyte distribution width (RBC) [Ratio] 17.5 % High 11.6-14.6 [facility] Comment on above: Order Comment: 104.1 Performed By: #### L 100.0500, L500.2500 #### [facility] [address] [place], [address] Hematocrit (Bld) [Volume fraction] 30.4 % Low 37-47 [facility] Comment on above: Order Comment: 104.1 Performed By: #### L 100.0500, L500.2500 #### [facility] [address] [place], [address] Hemoglobin (Bld) [Mass/Vol] 9.6 g/dL Low 12.0-15.0 [facility] Comment on above: Order Comment: 104.1 Performed By: #### L 100.0500, L500.2500 #### [facility] [address] [place], [address] MCH (RBC) [Entitic mass] 27.4 pg Normal 27.0-32.0 [facility] Comment on above: Order Comment: 104.1 Performed By: #### L 100.0500, L500.2500 #### [facility] [address] [place], [address] MCHC (RBC) [Mass/Vol] 31.6 g/dL Low 32-36 [facility] Comment on above: Order Comment: 104.1 Performed By: #### L 100.0500, L500.2500 #### [facility] [address] [place], [address] MCV (RBC) [Entitic vol] 86.9 fL Normal 81-99 [facility] Comment on above: Order Comment: 104.1 Performed By: #### L 100.0500, L500.2500 #### [facility] [address] [place], [address] Platelet mean volume (Bld) [Entitic vol] 10.3 fL Normal 6.2-12.0 [facility] Comment on above: Order Comment: 104.1 Performed By: #### L 100.0500, L500.2500 #### [facility] [address] [place], [address] Platelets (Bld) [#/Vol] 408 10*3/uL Normal 150-450 [facility] Comment on above: Order Comment: 104.1 Performed By: #### L 100.0500, L500.2500 #### [facility] [address] [place], [address] RBC (Bld) [#/Vol] 3.50 10*6/uL Low 4.2-5.4 [facility] Comment on above: Order Comment: 104.1 Performed By: #### L 100.0500, L500.2500 #### [facility] [address] [place], [address] RDW SD 56.2 fl High 35.1-43.9 [facility] Comment on above: Order Comment: 104.1 Performed By: #### L 100.0500, L500.2500 #### [facility] [address] [place], [address] WBC (Bld) [#/Vol] 6.4 10*3/uL Normal 4.4-11.0 [facility] Comment on above: Order Comment: 104.1 Performed By: #### L 100.0500, L500.2500 #### [facility] [address] [place], [address] Carbon dioxide, total [Moles /volume] in Central venous bloodOrdered By: Megan Montoya on 10-08-2024 CO2 [Moles/Vol] 20.0 mmol/L Low 21.0-32.0 [facility] Chloride assayOrdered By: Johnathan Guzman on 10-08-2024 Chloride [Moles/Vol] 106 mmol/L 98-108 [facility] Erythrocyte distribution wid th ratioOrdered By: Megan Montoya on 10-08-2024 Erythrocyte distribution width (RBC) [Ratio] 17.5 % High 11.6-14.6 [facility] Erythrocyte distribution wid th standard deviationOrdered By: Megan Montoya on 10-08-2024 Erythrocyte distribution width (RBC) [Entitic vol] 56.2 fL High 35.1-43.9 [facility] GFR/1.73 sq M.predicted gricelda g non-blacks MDRD (S/P/Bld) [Vol rate/Area]Ordered By: Megan Montoya on 10-08-2024 Estimated GFR (MDRD) Non-Af Amer 52 Low >60 [facility] Comment on above: mL/min/1.73m2 CKD-EP I Creatinine Equation (2020) Hematocrit Auto (Bld) [Volum e fraction]Ordered By: Megan Montoya on 10-08-2024 Hematocrit (Bld) [Volume fraction] 30.4 % Low 37-47 [facility] Hemoglobin measurementOrdere d By: Megan Montoya on 10-08-2024 Hemoglobin (Bld) [Mass/Vol] 9.6 g/dL Low 12.0-15.0 [facility] MCV (mean corpuscular volume ) determinationOrdered By: Megan Montoya on 10-08-2024 MCV (RBC) [Entitic vol] 86.9 fL 81-99 [facility] Mean corpuscular hemoglobin (MCH) determinationOrdered By: Megan Montoya on 10-08-2024 MCH (RBC) [Entitic mass] 27.4 pg 27.0-32.0 [facility] Mean corpuscular hemoglobin concentration (MCHC) determinationOrdered By: Megan Montoya on 10-08-2024 MCHC (RBC) [Mass/Vol] 31.6 g/dL Low 32-36 [facility] Mean platelet volume determi nationOrdered By: Megan Montoya on 10-08-2024 Platelet mean volume (Bld) [Entitic vol] 10.3 fL 6.2-12.0 [facility] Platelet countOrdered By: Johnathan Guzman on 10-08-2024 Platelets (Bld) [#/Vol] 408 10*3/uL 150-450 [facility] Potassium (Unsp spec) [Mass/ Vol]Ordered By: Megan Montoya on 10-08-2024 Potassium [Moles/Vol] 4.3 mmol/L 3.3-5.1 [facility] Comment on above: Hemolysis present, R esults could be affected. RBC Auto (Bld) [#/Vol]Ordere d By: Megan Montoya on 10-08-2024 RBC (Bld) [#/Vol] 3.50 10*6/uL Low 4.2-5.4 [facility] Serum creatinine measurement (mass/volume)Ordered By: Megan Montoya on 10-08-2024 Creatinine [Mass/Vol] 1.05 mg/dL 0.70-1.20 [facility] Serum glucose measurement (m ass/volume)Ordered By: Megan Montoya on 10-08-2024 Glucose [Mass/Vol] 98 mg/dL 70-99 [facility] Serum or plasma calcium reyna urement (mass/volume)Ordered By: Megan Montoya on 10-08-2024 Calcium [Mass/Vol] 9.0 mg/dL 7.6-11.0 [facility] Serum or plasma urea nitroge n measurement (mass/volume)Ordered By: Megan Montoya on 10-08-2024 Urea nitrogen [Mass/Vol] 17 mg/dL 4-19 [facility] Sodium levelOrdered By: Juan C Montoya on 10-08-2024 Sodium [Moles/Vol] 137 mmol/L 133-145 [facility] White blood cell (WBC) count Ordered By: Megan Montoya on 10-08-2024 WBC (Bld) [#/Vol] 6.4 10*3/uL 4.4-11.0 [facility] BSCAN OD (RIGHT EYE)on 10-01 [facility] Radiology Study observation (narrative) [facility] BUN/creatinine ratioOrdered By: Megan Montoya on 09-17-2024 Urea nitrogen/Creatinine [Mass ratio] 15.7 mg/mg 10-20 [facility] Basic Metabolic Profile (BMP )on 09-17-2024 Anion gap [Moles/Vol] 10 mmol/L Normal 5-15 [facility] Comment on above: Order Comment: 104.1 Performed By: #### L 9200.0000 #### [facility] [address] [place], [address] BUN/CRE 15.7 RATIO Normal 10-20 [facility] Comment on above: Order Comment: 104.1 Performed By: #### L 9200.0000 #### [facility] [address] [place], [address] Calcium [Mass/Vol] 9.0 mg/dL Normal 7.6-11.0 [facility] Comment on above: Order Comment: 104.1 Performed By: #### L 9200.0000 #### [facility] [address] [place], [address] Chloride [Moles/Vol] 108 mmol/L Normal 96-108 [facility] Comment on above: Order Comment: 104.1 Performed By: #### L 9200.0000 #### [facility] [address] [place], [address] CO2 [Moles/Vol] 21.6 mmol/L Low 22.0-29.0 [facility] Comment on above: Order Comment: 104.1 Performed By: #### L [id number] #### [facility] [address] [place], [address] Creatinine [Mass/Vol] 1.03 mg/dL Normal 0.70-1.20 [facility] Comment on above: Order Comment: 104.1 Performed By: #### L 9200.0000 #### [facility] [address] [place], [address] GFR/1.73 sq M.predicted among non-blacks MDRD (S/P/Bld) [Vol rate/Area] 54 mL/min/{1.73_m2} Low >60 [facility] Comment on above: Order Comment: 104.1 Result Comment: mL/m in/1.73m2 CKD-EPI Creatinine Equation (2020) Performed By: #### L 9200.0000 #### [facility] [address] [place], [address] Glucose [Mass/Vol] 90 mg/dL Normal 70-99 [facility] Comment on above: Order Comment: 104.1 Performed By: #### L 9200.0000 #### [facility] [address] [place], [address] Potassium [Moles/Vol] 4.5 mmol/L Normal 3.3-5.1 [facility] Comment on above: Order Comment: 104.1 Performed By: #### L 9200.0000 #### [facility] [address] [place], [address] Sodium [Moles/Vol] 140 mmol/L Normal 133-145 [facility] Comment on above: Order Comment: 104.1 Performed By: #### L 9200.0000 #### [facility] [address] [place], [address] Urea nitrogen [Mass/Vol] 16 mg/dL Normal 4-19 [facility] Comment on above: Order Comment: 104.1 Performed By: #### L 9200.0000 #### [facility] [address] [place], [address] Carbon dioxide measurementOr dered By: Megan Montoya on 09-17-2024 CO2 [Moles/Vol] 21.6 mmol/L Low 22.0-29.0 [facility] Chloride measurementOrdered By: Megan Montoya on 09-17-2024 Chloride [Moles/Vol] 108 mmol/L 96-108 [facility] GFR/1.73 sq M.predicted gricelda g non-blacks MDRD (S/P/Bld) [Vol rate/Area]Ordered By: Megan Montoya on 09-17-2024 Estimated GFR (MDRD) Non-Af Amer 54 Low >60 [facility] Comment on above: mL/min/1.73m2 CKD-EP I Creatinine Equation (2020) Serum creatinine measurement (mass/volume)Ordered By: Megan Montoya on 09-17-2024 Creatinine [Mass/Vol] 1.03 mg/dL 0.70-1.20 [facility] Serum glucose measurement (m ass/volume)Ordered By: Megan Montoya on 09-17-2024 Glucose [Mass/Vol] 90 mg/dL 70-99 [facility] Serum or plasma anion gap de termination (moles/volume)Ordered By: Megan Montoya on 09-17-2024 Anion gap [Moles/Vol] 10 mmol/L 5-15 [facility] Serum or plasma calcium reyna urement (mass/volume)Ordered By: Megan Montoya on 09-17-2024 Calcium [Mass/Vol] 9.0 mg/dL 7.6-11.0 [facility] Serum or plasma potassium me asurementOrdered By: Megan Montoya on 09-17-2024 Potassium [Moles/Vol] 4.5 mmol/L 3.3-5.1 [facility] Serum or plasma sodium measu rement (moles/volume)Ordered By: Megan Montoya on 09-17-2024 Sodium [Moles/Vol] 140 mmol/L 133-145 [facility] Serum or plasma urea nitroge n measurement (mass/volume)Ordered By: Megan Montoya on 09-17-2024 Urea nitrogen [Mass/Vol] 16 mg/dL 4-19 [facility] Basic Metabolic Profile (BMP )on 09-10-2024 BUN/CRE 17.9 RATIO Normal 10-20 [facility] Comment on above: Order Comment: 104.1 Performed By: #### L 100.0500, L500.2500 #### [facility] [address] [place], [address] CA,Total 9.0 mg/dL Normal 8.5-10.1 [facility] Comment on above: Order Comment: 104.1 Performed By: #### L 100.0500, L500.2500 #### [facility] [address] [place], [address] Chloride [Moles/Vol] 108 mmol/L High 98-107 [facility] Comment on above: Order Comment: 104.1 Performed By: #### L 100.0500, L500.2500 #### [facility] [address] [place], [address] CO2 [Moles/Vol] 24.0 mmol/L Normal 21.0-32.0 [facility] Comment on above: Order Comment: 104.1 Performed By: #### L 100.0500, L500.2500 #### [facility] [address] [place], [address] Creatinine [Mass/Vol] 1.23 mg/dL High 0.55-1.02 [facility] Comment on above: Order Comment: 104.1 Result Comment: The validity of the calculated GFR GFRAA in patients over 70 years has not been determined. Clinical correlation is essential. Performed By: #### L 100.0500, L500.2500 #### [facility] [address] [place], [address] EST GFR - AA 53 mL/min Low >60 [facility] Comment on above: Order Comment: 104.1 Result Comment: Afri can Guatemalan GFR Calc Performed By: #### L 100.0500, L500.2500 #### [facility] [address] [place], [address] GAP 5 Normal 5-15 [facility] Comment on above: Order Comment: 104.1 Performed By: #### L 100.0500, L500.2500 #### [facility] [address] [place], [address] GFR/1.73 sq M.predicted among non-blacks MDRD (S/P/Bld) [Vol rate/Area] 44 mL/min/{1.73_m2} Low >60 [facility] Comment on above: Order Comment: 104.1 Result Comment: Non- GFR Calc Performed By: #### L 100.0500, L500.2500 #### [facility] [address] [place], [address] Glucose [Mass/Vol] 98 mg/dL Normal 74-106 [facility] Comment on above: Order Comment: 104.1 Performed By: #### L 100.0500, L500.2500 #### [facility] [address] [place], [address] Potassium [Moles/Vol] 4.5 mmol/L Normal 3.5-5.1 [facility] Comment on above: Order Comment: 104.1 Performed By: #### L 100.0500, L500.2500 #### [facility] [address] [place], [address] Sodium [Moles/Vol] 137 mmol/L Normal 136-145 [facility] Comment on above: Order Comment: 104.1 Performed By: #### L 100.0500, L500.2500 #### [facility] [address] [place], [address] Urea nitrogen [Mass/Vol] 22 mg/dL High 7-18 [facility] Comment on above: Order Comment: 104.1 Performed By: #### L 100.0500, L500.2500 #### [facility] [address] [place], [address] Blood urea nitrogen (BUN)/cr eatinine ratioOrdered By: Megan Montoya on 09-10-2024 Urea nitrogen/Creatinine [Mass ratio] 17.9 mg/mg 10-20 [facility] CBC-Complete Blood Cnt No Di ffon 09-10-2024 Erythrocyte distribution width (RBC) [Ratio] 17.8 % High 11.6-14.6 [facility] Comment on above: Order Comment: 104.1 Performed By: #### L 100.0500, L500.2500 #### [facility] [address] [place], [address] Hematocrit (Bld) [Volume fraction] 31.9 % Low 37-47 [facility] Comment on above: Order Comment: 104.1 Performed By: #### L 100.0500, L500.2500 #### [facility] [address] [place], [address] Hemoglobin (Bld) [Mass/Vol] 9.7 g/dL Low 12.0-15.0 [facility] Comment on above: Order Comment: 104.1 Performed By: #### L 100.0500, L500.2500 #### [facility] [address] [place], [address] MCH (RBC) [Entitic mass] 26.1 pg Low 27.0-32.0 [facility] Comment on above: Order Comment: 104.1 Performed By: #### L 100.0500, L500.2500 #### [facility] [address] [place], [address] MCHC (RBC) [Mass/Vol] 30.4 g/dL Low 32-36 [facility] Comment on above: Order Comment: 104.1 Performed By: #### L 100.0500, L500.2500 #### [facility] [address] [place], [address] MCV (RBC) [Entitic vol] 85.8 fL Normal 81-99 [facility] Comment on above: Order Comment: 104.1 Performed By: #### L 100.0500, L500.2500 #### [facility] [address] [place], [address] Platelet mean volume (Bld) [Entitic vol] 9.5 fL Normal 6.2-12.0 [facility] Comment on above: Order Comment: 104.1 Performed By: #### L 100.0500, L500.2500 #### [facility] [address] [place], [address] Platelets (Bld) [#/Vol] 485 10*3/uL High 150-450 [facility] Comment on above: Order Comment: 104.1 Performed By: #### L 100.0500, L500.2500 #### [facility] [address] [place], [address] RBC (Bld) [#/Vol] 3.72 10*6/uL Low 4.2-5.4 [facility] Comment on above: Order Comment: 104.1 Performed By: #### L 100.0500, L500.2500 #### [facility] [address] [place], [address] RDW SD 55.2 fl High 35.1-43.9 [facility] Comment on above: Order Comment: 104.1 Performed By: #### L 100.0500, L500.2500 #### [facility] [address] [place], [address] WBC (Bld) [#/Vol] 7.7 10*3/uL Normal 4.4-11.0 [facility] Comment on above: Order Comment: 104.1 Performed By: #### L 100.0500, L500.2500 #### [facility] [address] [place], [address] Carbon dioxide measurementOr dered By: Megan Montoya on 09-10-2024 CO2 [Moles/Vol] 24.0 mmol/L 21.0-32.0 [facility] Chloride measurementOrdered By: Megan Montoya on 09-10-2024 Chloride [Moles/Vol] 108 mmol/L High 98-107 [facility] Erythrocyte distribution wid th ratioOrdered By: Megan Montoya on 09-10-2024 Erythrocyte distribution width (RBC) [Ratio] 17.8 % High 11.6-14.6 [facility] Erythrocyte distribution wid th standard deviationOrdered By: Megan Montoya on 09-10-2024 Erythrocyte distribution width (RBC) [Entitic vol] 55.2 fL High 35.1-43.9 [facility] Estimated glomerular filtrat ion rate (GFR) AmericanOrdered By: Megan Montoya on 09-10-2024 Estimated GFR (MDRD) Amer 53 mL/min Low >60 [facility] Comment on above: GFR Calc Glomerular filtration rate ( GFR) estimationOrdered By: Megan Montoya on 09-10-2024 Estimated GFR (MDRD) Non-Af Amer 44 mL/min Low >60 [facility] Comment on above: Non- GFR Calc Glucose measurementOrdered B y: Megan Montoya on 09-10-2024 Glucose [Mass/Vol] 98 mg/dL 74-106 [facility] Hematocrit Auto (Bld) [Volum e fraction]Ordered By: Megan Montoya on 09-10-2024 Hematocrit (Bld) [Volume fraction] 31.9 % Low 37-47 [facility] Hemoglobin measurementOrdere d By: Megan Montoya on 09-10-2024 Hemoglobin (Bld) [Mass/Vol] 9.7 g/dL Low 12.0-15.0 [facility] MCV (mean corpuscular volume ) determinationOrdered By: Megan Montoya on 09-10-2024 MCV (RBC) [Entitic vol] 85.8 fL 81-99 [facility] Mean corpuscular hemoglobin (MCH) determinationOrdered By: Megan Montoya on 09-10-2024 MCH (RBC) [Entitic mass] 26.1 pg Low 27.0-32.0 [facility] Mean corpuscular hemoglobin concentration (MCHC) determinationOrdered By: Megan Montoya on 09-10-2024 MCHC (RBC) [Mass/Vol] 30.4 g/dL Low 32-36 [facility] Mean platelet volume determi nationOrdered By: Megan Montoya on 09-10-2024 Platelet mean volume (Bld) [Entitic vol] 9.5 fL 6.2-12.0 [facility] Platelet countOrdered By: Johnathan Guzman on 09-10-2024 Platelets (Bld) [#/Vol] 485 10*3/uL High 150-450 [facility] Potassium measurementOrdered By: Megan Montoya on 09-10-2024 Potassium [Moles/Vol] 4.5 mmol/L 3.5-5.1 [facility] RBC Auto (Bld) [#/Vol]Ordere d By: Megan Montoya on 09-10-2024 RBC (Bld) [#/Vol] 3.72 10*6/uL Low 4.2-5.4 [facility] Serum anion gap measurementO rdered By: Megan Montoya on 09-10-2024 Anion gap [Moles/Vol] 5 mmol/L 5-15 [facility] Serum or plasma calcium reyna urement (mass/volume)Ordered By: Megan Montoya on 09-10-2024 Calcium [Mass/Vol] 9.0 mg/dL 8.5-10.1 [facility] Serum or plasma creatinine m easurement (mass/volume)Ordered By: Megan Montoya on 09-10-2024 Creatinine [Mass/Vol] 1.23 mg/dL High 0.55-1.02 [facility] Comment on above: The validity of the calculated GFR & GFRAA in patients over 70 years has not been determined. Clinical correlation is essential. Serum or plasma urea nitroge n measurement (mass/volume)Ordered By: Megan Montoya on 09-10-2024 Urea nitrogen [Mass/Vol] 22 mg/dL High 7-18 [facility] Sodium levelOrdered By: Juan C Montoya on 09-10-2024 Sodium [Moles/Vol] 137 mmol/L 136-145 [facility] White blood cell (WBC) count Ordered By: Megan Montoya on 09-10-2024 WBC (Bld) [#/Vol] 7.7 10*3/uL 4.4-11.0 [facility] Urine Cultureon 09-06-2024 [facility] UNKNOWN METHOD OF COLLECTION Proteus mirabilis [place] Count 50,000-80,000 Klebsiella pneumoniae sp pneum Klebsiella [...] TMP SMX Islt AGATA <=20 S Normal [facility] Comment on above: Performed By: #### L 9200.0000 #### [facility] [address] [place], [address] Urinalysis, Completeon 09-04 BACTERIA 4+ /hpf Normal None Seen [facility] Comment on above: Order Comment: UNKNO WN METHOD OF COLLECTIONCLEAN CATCH Performed By: #### L 9200.0000 #### [facility] [address] [place], [place], [address] EPI,SQUAMOUS 10-25 SEEN Normal 5-10 [facility] Comment on above: Order Comment: UNKNO WN METHOD OF COLLECTIONCLEAN CATCH Performed By: #### L 9200.0000 #### [facility] [address] [place], [place], [address] Mucus Ql (Urine sed) 1+ /hpf Normal [facility] Comment on above: Order Comment: UNKNO WN METHOD OF COLLECTIONCLEAN CATCH Performed By: #### L 9200.0000 #### [facility] [address] [place], [address] RBC 5-10 SEEN Normal 0-5 [facility] Comment on above: Order Comment: UNKNO WN METHOD OF COLLECTIONCLEAN CATCH Performed By: #### L 9200.0000 #### [facility] [address] [place], [address] WBC 50-100 SEEN Normal 0-5 [facility] Comment on above: Order Comment: UNKNO WN METHOD OF COLLECTIONCLEAN CATCH Performed By: #### L 9200.0000 #### [facility] [address] [place], [address] Basic Metabolic Profile (BMP )on 09-03-2024 BUN/CRE 20.7 RATIO High 10-20 [facility] Comment on above: Order Comment: 104-1 Performed By: #### L 9200.0000 #### [facility] [address] [place], [address] CA,Total 9.4 mg/dL Normal 8.5-10.1 [facility] Comment on above: Order Comment: 104-1 Performed By: #### L 9200.0000 #### [facility] [address] [place], [address] Chloride [Moles/Vol] 109 mmol/L High 98-107 [facility] Comment on above: Order Comment: 104-1 Performed By: #### L 9200.0000 #### [facility] [address] [place], [address] CO2 [Moles/Vol] 21.0 mmol/L Normal 21.0-32.0 [facility] Comment on above: Order Comment: 104-1 Performed By: #### L 9200.0000 #### [facility] [address] [place], [address] Creatinine [Mass/Vol] 0.92 mg/dL Normal 0.55-1.02 [facility] Comment on above: Order Comment: 104-1 Result Comment: The validity of the calculated GFR GFRAA in patients over 70 years has not been determined. Clinical correlation is essential. Performed By: #### L 9200.0000 #### [facility] [address] [place], [address] EST GFR - AA 75 mL/min Normal >60 [facility] Comment on above: Order Comment: 104-1 Result Comment: Afri can [place] GFR Calc Performed By: #### L 9200.0000 #### [facility] [address] [place], [address] GAP 9 Normal 5-15 [facility] Comment on above: Order Comment: 104-1 Performed By: #### L 9200.0000 #### [facility] [address] [place], [address] GFR/1.73 sq M.predicted among non-blacks MDRD (S/P/Bld) [Vol rate/Area] 62 mL/min/{1.73_m2} Normal >60 [facility] Comment on above: Order Comment: 104-1 Result Comment: Non- GFR Calc Performed By: #### L 9200.0000 #### [facility] [address] [place], [address] Glucose [Mass/Vol] 115 mg/dL High 74-106 [facility] Comment on above: Order Comment: 104-1 Result Comment: Fast ing Glucose result from 100 to 125 mg/dL suggests IMPAIRED HOMEOSTASIS per A.D.A. criteria. Performed By: #### L 9200.0000 #### [facility] [address] [place], [address] Potassium [Moles/Vol] 4.4 mmol/L Normal 3.5-5.1 [facility] Comment on above: Order Comment: 104-1 Performed By: #### L 9200.0000 #### [facility] [address] [place], [address] Sodium [Moles/Vol] 139 mmol/L Normal 136-145 [facility] Comment on above: Order Comment: 104-1 Performed By: #### L 9200.0000 #### [facility] [address] [place], [address] Urea nitrogen [Mass/Vol] 19 mg/dL High 7-18 [facility] Comment on above: Order Comment: 104-1 Performed By: #### L 9200.0000 #### [facility] [address] [place], [address] Bilirubin Test strip Ql (U)O rdered By: Megan Montoya on 09-03-2024 Bilirubin Ql (U) Negative Negative [facility] Blood urea nitrogen (BUN)/cr eatinine ratioOrdered By: Megan Montoya on 09-03-2024 Urea nitrogen/Creatinine [Mass ratio] 20.7 mg/mg High 10-20 [facility] CBC-Complete Blood Cnt No Di ffon 09-03-2024 Erythrocyte distribution width (RBC) [Ratio] 17.9 % High 11.6-14.6 [facility] Comment on above: Order Comment: 104-1 Performed By: #### L 9200.0000 #### [facility] [address] [place], [address] Hematocrit (Bld) [Volume fraction] 30.8 % Low 37-47 [facility] Comment on above: Order Comment: 104-1 Performed By: #### L 9200.0000 #### [facility] [address] [place], [address] Hemoglobin (Bld) [Mass/Vol] 9.5 g/dL Low 12.0-15.0 [facility] Comment on above: Order Comment: 104-1 Performed By: #### L 9200.0000 #### [facility] [address] [place], [address] MCH (RBC) [Entitic mass] 25.7 pg Low 27.0-32.0 [facility] Comment on above: Order Comment: 104-1 Performed By: #### L 9200.0000 #### [facility] [address] [place], [address] MCHC (RBC) [Mass/Vol] 30.8 g/dL Low 32-36 [facility] Comment on above: Order Comment: 104-1 Performed By: #### L 9200.0000 #### [facility] [address] [place], [address] MCV (RBC) [Entitic vol] 83.5 fL Normal 81-99 [facility] Comment on above: Order Comment: 104-1 Performed By: #### L 9200.0000 #### [facility] [address] [place], [address] Platelet mean volume (Bld) [Entitic vol] 10.2 fL Normal 6.2-12.0 [facility] Comment on above: Order Comment: 104-1 Performed By: #### L 9200.0000 #### [facility] [address] [place], [address] Platelets (Bld) [#/Vol] 431 10*3/uL Normal 150-450 [facility] Comment on above: Order Comment: 104-1 Performed By: #### L 9200.0000 #### [facility] [address] [place], [address] RBC (Bld) [#/Vol] 3.69 10*6/uL Low 4.2-5.4 [facility] Comment on above: Order Comment: 104-1 Performed By: #### L 9200.0000 #### [facility] [address] [place], [address] RDW SD 54.3 fl High 35.1-43.9 [facility] Comment on above: Order Comment: 104-1 Performed By: #### L 9200.0000 #### [facility] [address] [place], [place], [address] WBC (Bld) [#/Vol] 10.6 10*3/uL Normal 4.4-11.0 [facility] Comment on above: Order Comment: 104-1 Performed By: #### L 9200.0000 #### [facility] [address] [place], [place], [address] Carbon dioxide measurementOr dered By: Megan Montoya on 09-03-2024 CO2 [Moles/Vol] 21.0 mmol/L 21.0-32.0 [facility] Chloride measurementOrdered By: Megan Montoya on 09-03-2024 Chloride [Moles/Vol] 109 mmol/L High 98-107 [facility] Epithelial cells.squamous LM Ql (Urine sed)Ordered By: Megan Montoya on 09-03-2024 Epithelial cells.squamous LM.HPF (Urine sed) [#/Area] 10 /[HPF] 5-10 [facility] Erythrocyte distribution wid th ratioOrdered By: Megan Montoya on 09-03-2024 Erythrocyte distribution width (RBC) [Ratio] 17.9 % High 11.6-14.6 [facility] Erythrocyte distribution wid th standard deviationOrdered By: Megan Montoya on 09-03-2024 Erythrocyte distribution width (RBC) [Entitic vol] 54.3 fL High 35.1-43.9 [facility] Estimated glomerular filtrat ion rate (GFR) AmericanOrdered By: Megan Montoya on 09-03-2024 Estimated GFR (MDRD) Amer 75 mL/min >60 [facility] Comment on above: GFR Calc Glomerular filtration rate ( GFR) estimationOrdered By: Megan Montoya on 09-03-2024 Estimated GFR (MDRD) Non-Af Amer 62 mL/min >60 [facility] Comment on above: Non- GFR Calc Glucose Ql (U)Ordered By: Johnathan Guzman on 09-03-2024 Urine Glucose (UA) Normal mg/dl Normal [facility] Glucose measurementOrdered B y: Megan Montoya on 09-03-2024 Glucose [Mass/Vol] 115 mg/dL High 74-106 [facility] Comment on above: Fasting Glucose resu lt from 100 to 125 mg/dL suggests IMPAIRED HOMEOSTASIS per A.D.A. criteria. Hematocrit Auto (Bld) [Volum e fraction]Ordered By: Megan Montoya on 09-03-2024 Hematocrit (Bld) [Volume fraction] 30.8 % Low 37-47 [facility] Hemoglobin measurementOrdere d By: Megan Montoya on 09-03-2024 Hemoglobin (Bld) [Mass/Vol] 9.5 g/dL Low 12.0-15.0 [facility] Ketones Test strip Ql (U)Ord ered By: Megan Montoya on 09-03-2024 Ketones Ql (U) 5 mg/dl High Negative [facility] MCV (mean corpuscular volume ) determinationOrdered By: Megan Montoya on 09-03-2024 MCV (RBC) [Entitic vol] 83.5 fL 81-99 [facility] Mean corpuscular hemoglobin (MCH) determinationOrdered By: Megan Montoya on 09-03-2024 MCH (RBC) [Entitic mass] 25.7 pg Low 27.0-32.0 [facility] Mean corpuscular hemoglobin concentration (MCHC) determinationOrdered By: Megan Montoya on 09-03-2024 MCHC (RBC) [Mass/Vol] 30.8 g/dL Low 32-36 [facility] Mean platelet volume determi nationOrdered By: Megan Montoya on 09-03-2024 Platelet mean volume (Bld) [Entitic vol] 10.2 fL 6.2-12.0 [facility] Microscopic analysis of urin e for red blood cells (RBC)Ordered By: Megan Montoya on 09-03-2024 Urine RBC 5-10 SEEN /hpf 0-5 [facility] Mucus LM Ql (Urine sed)Order ed By: Megan Montoya on 09-03-2024 Mucus Ql (Urine sed) 1+ /hpf [facility] Nitrite Test strip Ql (U)Ord ered By: Megan Montoya on 09-03-2024 Nitrite Ql (U) Positive High Negative [facility] Platelet countOrdered By: Johnathan Guzman on 09-03-2024 Platelets (Bld) [#/Vol] 431 10*3/uL 150-450 [facility] Potassium measurementOrdered By: Megan Montoya on 09-03-2024 Potassium [Moles/Vol] 4.4 mmol/L 3.5-5.1 [facility] Protein Test strip Ql (U)Ord ered By: Megan Montoya on 09-03-2024 Protein Ql (U) 100 mg/dl High Negative [facility] RBC Auto (Bld) [#/Vol]Ordere d By: Megan Montoya on 09-03-2024 RBC (Bld) [#/Vol] 3.69 10*6/uL Low 4.2-5.4 [facility] Serum anion gap measurementO rdered By: Megan Montoya on 09-03-2024 Anion gap [Moles/Vol] 9 mmol/L 5-15 [facility] Serum or plasma calcium reyna urement (mass/volume)Ordered By: Megan Montoya on 09-03-2024 Calcium [Mass/Vol] 9.4 mg/dL 8.5-10.1 [facility] Serum or plasma creatinine m easurement (mass/volume)Ordered By: Megan Montoya on 09-03-2024 Creatinine [Mass/Vol] 0.92 mg/dL 0.55-1.02 [facility] Comment on above: The validity of the calculated GFR & GFRAA in patients over 70 years has not been determined. Clinical correlation is essential. Serum or plasma urea nitroge n measurement (mass/volume)Ordered By: Megan Montoya on 09-03-2024 Urea nitrogen [Mass/Vol] 19 mg/dL High 7-18 [facility] Sodium levelOrdered By: Juan C Montoya on 09-03-2024 Sodium [Moles/Vol] 139 mmol/L 136-145 [facility] Urine blood detectionOrdered By: Megan Montoya on 09-03-2024 Urine Occult Blood 150 /ul High Negative [facility] Urine clarityOrdered By: Pola Montoya on 09-03-2024 Clarity (U) Cloudy Clear [facility] Urine color determinationOrd ered By: Megan Montoya on 09-03-2024 Color (U) Yellow Yellow [facility] Urine cultureOrdered By: Pola Montoya on 09-03-2024 Bacteria identified Cx Nom (U) Proteus mirabilis Abnormal [facility] Bacteria identified Cx Nom (U) Klebsiella pneumoniae sp pneum Abnormal [facility] Bacteria identified Cx Nom (U) Proteus mirabilis Abnormal [facility] Bacteria identified Cx Nom (U) Klebsiella pneumoniae sp pneum Abnormal [facility] Urine leukocyte esterase det ection by dipstickOrdered By: Megan Montoya on 09-03-2024 Leukocyte esterase Test strip Ql (U) 500 /ul High Negative [facility] Urine pHOrdered By: Megan jimenez on 09-03-2024 pH (U) 6.0 [pH] 5.0 - 8.0 [facility] Urine sediment bacteria coun t by microscopy (number/high power field)Ordered By: Megan Montoya on 09-03-2024 Bacteria LM.HPF (Urine sed) [#/Area] 4 /[HPF] None Seen [facility] Urine specific gravity measu rementOrdered By: Megan Montoya on 09-03-2024 Specific gravity (U) [Rel density] 1.020 1.002-1.030 [facility] Urobilinogen Ql (U)Ordered B y: Megan Montoya on 09-03-2024 Urine Urobilinogen Normal mg/dl Normal [facility] White blood cell (WBC) count Ordered By: Megan Montoya on 09-03-2024 WBC (Bld) [#/Vol] 10.6 10*3/uL 4.4-11.0 [facility] White blood cell countOrdere d By: Megan Montoya on 09-03-2024 Urine WBC 50-100 SEEN /hpf 0-5 [facility] [id number] 08-27-2024 [id number] Patient Choice Patient Name: MEL POP Date of : 1940 Normal [facility] Progress Noteon 08-22-2024 Progress Note Normal [facility] Albumin to globulin ratioOrd ered By: Megan Montoya on 08-20-2024 Albumin/Globulin [Mass ratio] 0.7 {ratio} Low 0.9-2.4 [facility] Bilirubin, totalOrdered By: Megan Montoya on 08-20-2024 Bilirubin [Mass/Vol] 0.60 mg/dL 0.20-1.00 [facility] Comment on above: For patients on eltr ombopag therapy, use of Dimension Holt TBIL is not recommended. Blood urea nitrogen (BUN)/cr eatinine ratioOrdered By: Megan Monotya on 08-20-2024 Urea nitrogen/Creatinine [Mass ratio] 11.2 mg/mg 10-20 [facility] CBC-Complete Blood Cnt No Di ffon 08-20-2024 Erythrocyte distribution width (RBC) [Ratio] 19.2 % High 11.6-14.6 [facility] Comment on above: Performed By: #### L 100.0500, L500.2500 #### [facility] Laboratory [address] [place], [address] Hematocrit (Bld) [Volume fraction] 33.4 % Low 37-47 [facility] Comment on above: Performed By: #### L 100.0500, L500.2500 #### [facility] [address] [place], [address] Hemoglobin (Bld) [Mass/Vol] 10.4 g/dL Low 12.0-15.0 [facility] Comment on above: Performed By: #### L 100.0500, L500.2500 #### [facility] [address] [place], [address] MCH (RBC) [Entitic mass] 26.3 pg Low 27.0-32.0 [facility] Comment on above: Performed By: #### L 100.0500, L500.2500 #### [facility] [address] [place], [address] MCHC (RBC) [Mass/Vol] 31.1 g/dL Low 32-36 [facility] Comment on above: Performed By: #### L 100.0500, L500.2500 #### [facility] [address] [place], [address] MCV (RBC) [Entitic vol] 84.6 fL Normal 81-99 [facility] Comment on above: Performed By: #### L 100.0500, L500.2500 #### [facility] [address] [place], [address] Platelet mean volume (Bld) [Entitic vol] 9.7 fL Normal 6.2-12.0 [facility] Comment on above: Performed By: #### L 100.0500, L500.2500 #### [facility] [address] [place], [address] Platelets (Bld) [#/Vol] 405 10*3/uL Normal 150-450 [facility] Comment on above: Performed By: #### L 100.0500, L500.2500 #### [facility] [address] [place], [address] RBC (Bld) [#/Vol] 3.95 10*6/uL Low 4.2-5.4 [facility] Comment on above: Performed By: #### L 100.0500, L500.2500 #### [facility] [address] [place], [address] RDW SD 58.9 fl High 35.1-43.9 [facility] Comment on above: Performed By: #### L 100.0500, L500.2500 #### [facility] [address] [place], [address] WBC (Bld) [#/Vol] 5.9 10*3/uL Normal 4.4-11.0 [facility] Comment on above: Performed By: #### L 100.0500, L500.2500 #### [facility] [address] [place], [address] Carbon dioxide measurementOr dered By: Megan Montoya on 08-20-2024 CO2 [Moles/Vol] 22.0 mmol/L 21.0-32.0 [facility] Chloride measurementOrdered By: Megan Montoya on 08-20-2024 Chloride [Moles/Vol] 109 mmol/L High 98-107 [facility] Comprehensive Metabolic Prof ilon 08-20-2024 Albumin [Mass/Vol] 2.7 g/dL Low 3.2-5.0 [facility] Comment on above: Performed By: #### L 100.0500, L500.2500 #### [facility] [address] [place], [address] Albumin/Globulin [Mass ratio] 0.7 {ratio} Low 0.9-2.4 [facility] Comment on above: Performed By: #### L 100.0500, L500.2500 #### [facility] [address] [place], [address] ALK P 117 U/L Normal 45-117 [facility] Comment on above: Performed By: #### L 100.0500, L500.2500 #### [facility] [address] [place], [address] ALT [Catalytic activity/Vol] 18 U/L Normal 13-56 [facility] Comment on above: Performed By: #### L 100.0500, L500.2500 #### [facility] [address] [place], [address] AST [Catalytic activity/Vol] 18 U/L Normal 15-37 [facility] Comment on above: Result Comment: Slig ht Hemolysis, Result may be falsely increased. Performed By: #### L 100.0500, L500.2500 #### [facility] [address] [place], [address] Bilirubin [Mass/Vol] 0.60 mg/dL Normal 0.20-1.00 [facility] Comment on above: Result Comment: For patients on eltrombopag therapy, use of Dimension Holt TBIL is not recommended. Performed By: #### L 100.0500, L500.2500 #### [facility] [address] [place], [address] BUN/CRE 11.2 RATIO Normal 10-20 [facility] Comment on above: Performed By: #### L 100.0500, L500.2500 #### [facility] [address] [place], [address] CA,Total 9.0 mg/dL Normal 8.5-10.1 [facility] Comment on above: Performed By: #### L 100.0500, L500.2500 #### [facility] [address] [place], [address] Chloride [Moles/Vol] 109 mmol/L High 98-107 [facility] Comment on above: Performed By: #### L 100.0500, L500.2500 #### [facility] [address] [place], [address] CO2 [Moles/Vol] 22.0 mmol/L Normal 21.0-32.0 [facility] Comment on above: Performed By: #### L 100.0500, L500.2500 #### [facility] [address] [place], [address] Creatinine [Mass/Vol] 0.98 mg/dL Normal 0.55-1.02 [facility] Comment on above: Result Comment: The validity of the calculated GFR GFRAA in patients over 70 years has not been determined. Clinical correlation is essential. Performed By: #### L 100.0500, L500.2500 #### [facility] [address] [place], [address] EST GFR - AA 69 mL/min Normal >60 [facility] Comment on above: Result Comment: Afri can Guatemalan GFR Calc Performed By: #### L 100.0500, L500.2500 #### [facility] [address] [place], [address] GAP 7 Normal 5-15 [facility] Comment on above: Performed By: #### L 100.0500, L500.2500 #### [facility] [address] [place], [address] GFR/1.73 sq M.predicted among non-blacks MDRD (S/P/Bld) [Vol rate/Area] 57 mL/min/{1.73_m2} Low >60 [facility] Comment on above: Result Comment: Non- GFR Calc Performed By: #### L 100.0500, L500.2500 #### [facility] [address] [place], [address] Globulin (S) [Mass/Vol] 4.1 g/dL Normal 2.2-4.2 [facility] Comment on above: Performed By: #### L 100.0500, L500.2500 #### [facility] [address] [place], [address] Glucose [Mass/Vol] 97 mg/dL Normal 74-106 [facility] Comment on above: Performed By: #### L 100.0500, L500.2500 #### [facility] [address] [place], [address] Potassium [Moles/Vol] 4.2 mmol/L Normal 3.5-5.1 [facility] Comment on above: Result Comment: Slig ht Hemolysis, Result may be falsely increased. Performed By: #### L 100.0500, L500.2500 #### [facility] [address] [place], [address] Sodium [Moles/Vol] 138 mmol/L Normal 136-145 [facility] Comment on above: Performed By: #### L 100.0500, L500.2500 #### [facility] [address] [place], [place], [id number] T PROT 6.8 g/dL Normal 6.4-8.2 [facility] Comment on above: Performed By: #### L 100.0500, L500.2500 #### [facility] [address] [place], [address] Urea nitrogen [Mass/Vol] 11 mg/dL Normal 7-18 [facility] Comment on above: Performed By: #### L 100.0500, L500.2500 #### [facility] [address] [place], [place], [id number] Erythrocyte distribution wid th ratioOrdered By: Megan Montoya on 08-20-2024 Erythrocyte distribution width (RBC) [Ratio] 19.2 % High 11.6-14.6 [facility] Erythrocyte distribution wid th standard deviationOrdered By: Megan Montoya on 08-20-2024 Erythrocyte distribution width (RBC) [Entitic vol] 58.9 fL High 35.1-43.9 [facility] Estimated glomerular filtrat ion rate (GFR) AmericanOrdered By: Megan Montoya on 08-20-2024 Estimated GFR (MDRD) Amer 69 mL/min >60 [facility] Comment on above: GFR Calc Glomerular filtration rate ( GFR) estimationOrdered By: Megan Montoya on 08-20-2024 Estimated GFR (MDRD) Non-Af Amer 57 mL/min Low >60 [facility] Comment on above: Non- GFR Calc Glucose measurementOrdered B y: Megan Montoya on 08-20-2024 Glucose [Mass/Vol] 97 mg/dL 74-106 [facility] Hematocrit Auto (Bld) [Volum e fraction]Ordered By: Megan Montoya on 08-20-2024 Hematocrit (Bld) [Volume fraction] 33.4 % Low 37-47 [facility] Hemoglobin measurementOrdere d By: Megan Montoya on 08-20-2024 Hemoglobin (Bld) [Mass/Vol] 10.4 g/dL Low 12.0-15.0 [facility] Laboratory - Chemistry and C hemistry - challengeOrdered By: Megan Montoya on 08-20-2024 AST [Catalytic activity/Vol] 18 U/L 15-37 [facility] Comment on above: Slight Hemolysis, Re sult may be falsely increased. MCV (mean corpuscular volume ) determinationOrdered By: Megan Montoya on 08-20-2024 MCV (RBC) [Entitic vol] 84.6 fL 81-99 [facility] Mean corpuscular hemoglobin (MCH) determinationOrdered By: Megan Montoya on 08-20-2024 MCH (RBC) [Entitic mass] 26.3 pg Low 27.0-32.0 [facility] Mean corpuscular hemoglobin concentration (MCHC) determinationOrdered By: Megan Montoya on 08-20-2024 MCHC (RBC) [Mass/Vol] 31.1 g/dL Low 32-36 [facility] Mean platelet volume determi nationOrdered By: Megan Montoya on 08-20-2024 Platelet mean volume (Bld) [Entitic vol] 9.7 fL 6.2-12.0 [facility] Platelet countOrdered By: Johnathan Guzman on 08-20-2024 Platelets (Bld) [#/Vol] 405 10*3/uL 150-450 [facility] Potassium measurementOrdered By: Megan Montoya on 08-20-2024 Potassium [Moles/Vol] 4.2 mmol/L 3.5-5.1 [facility] Comment on above: Slight Hemolysis, Re sult may be falsely increased. RBC Auto (Bld) [#/Vol]Ordere d By: Megan Montoya on 08-20-2024 RBC (Bld) [#/Vol] 3.95 10*6/uL Low 4.2-5.4 [facility] Serum anion gap measurementO rdered By: Megan Montoya on 08-20-2024 Anion gap [Moles/Vol] 7 mmol/L 5-15 [facility] Serum globulin measurementOr dered By: Megan Montoya on 08-20-2024 Globulin (S) [Mass/Vol] 4.1 g/dL 2.2-4.2 [facility] Serum or plasma alanine hinojosa otransferase (ALT) measurementOrdered By: Megan Montoya on 08-20-2024 ALT [Catalytic activity/Vol] 18 U/L 13-56 [facility] Serum or plasma albumin reyna urement (mass/volume)Ordered By: Megan Montoya on 08-20-2024 Albumin [Mass/Vol] 2.7 g/dL Low 3.2-5.0 [facility] Serum or plasma alkaline silvia sphatase measurementOrdered By: Megan Montoya on 08-20-2024 ALP [Catalytic activity/Vol] 117 U/L 45-117 [facility] Serum or plasma calcium reyna urement (mass/volume)Ordered By: Megan Montoya on 08-20-2024 Calcium [Mass/Vol] 9.0 mg/dL 8.5-10.1 [facility] Serum or plasma creatinine m easurement (mass/volume)Ordered By: Megan Montoya on 08-20-2024 Creatinine [Mass/Vol] 0.98 mg/dL 0.55-1.02 [facility] Comment on above: The validity of the calculated GFR & GFRAA in patients over 70 years has not been determined. Clinical correlation is essential. Serum or plasma urea nitroge n measurement (mass/volume)Ordered By: Megan Montoya on 08-20-2024 Urea nitrogen [Mass/Vol] 11 mg/dL 7-18 [facility] Sodium levelOrdered By: Juan C Montoya on 08-20-2024 Sodium [Moles/Vol] 138 mmol/L 136-145 [facility] Total proteinOrdered By: Pola Montoya on 08-20-2024 Protein [Mass/Vol] 6.8 g/dL 6.4-8.2 [facility] White blood cell (WBC) count Ordered By: Megan Montoya on 08-20-2024 WBC (Bld) [#/Vol] 5.9 10*3/uL 4.4-11.0 [facility] [id number] 08-16-2024 [id number] [facility] [id number] [facility] [id number] MAR & Discharge med list transmitted to [facility] via Careport per TCC request. Electronically signed by JESSICA Leone Normal [facility] [id number] Normal [facility] Laboratory - Chemistry and C hemistry - challengeon 08-16-2024 Glucose [Mass/Vol] 120 mg/dL High 70 - 100 mg/dL [facility] No Panel Informationon 08-16 Interpretation and review of laboratory results Abnormal [facility] Performed by: [facility], [address] [place] [address], [facility] [address] CLIA ID: [id number] [facility] Nursing Noteon 08-16-2024 Nursing Note Patient picked up fo r transfer to [facility] by jayson. Report already called to GENET Garcia. Normal [facility] Nursing Note Telephone report erin led to GENET Garcia at [facility]. Normal [facility] Progress Noteon 08-16-2024 Progress Note Normal [facility] 30on 08-15-2024 30 Normal [facility] [id number] 08-15-2024 [id number] Authorization is pending with [facility]. Ref# [id number] to be DC'd to [facility]. Dtr Fidel Sharma. CM to follow. Normal [facility] Progress Noteon 08-15-2024 Progress Note Normal [facility] 30on 08-14-2024 30 Normal [facility] [id number] 08-14-2024 [id number] Normal [facility] Progress Noteon 08-14-2024 Progress Note Normal [facility] Progress Note Normal [facility] Progress Note Normal [facility] 30on 08-13-2024 30 Normal [facility] 30 Normal [facility] [id number] 08-13-2024 [id number] Normal [facility] Progress Noteon 08-13-2024 Progress Note Normal [facility] Progress Note Normal [facility] 30on 08-12-2024 30 Normal [facility] Progress Noteon 08-12-2024 Progress Note Normal [facility] 30on 08-11-2024 30 Normal [facility] 30 Normal [facility] [id number] 08-11-2024 [id number] CM noted DC orders i n place, Dgt touring facilities over the weekend. Moira[facility] pending acceptance, updates sent via careport. [facility] Progress Noteon 08-11-2024 [facility] 30on 08-10-2024 30 Normal [facility] [id number] 08-10-2024 [id number] Normal [facility] Progress Noteon 08-10-2024 Progress [facility] [id number] 08-09-2024 [id number] Normal [facility] [id number] Normal [facility] [id number] Updated PT/OT notes placed to [facility] via Careport per TCC request. Await review and response regarding ability to accept. TCC notified. Electronically signed by JESSICA Gardiner [facility] [id number] Patient is medically ready for dc. PT/OT both continuing to recommend SNF. [facility] underwriting manager asked to start auth. Plan to dc back to [facility] pending auth [facility] Progress Noteon 08-09-2024 Progress Note Normal [facility] [id number] 08-08-2024 [id number] Normal [facility] Progress Noteon 08-08-2024 Progress Note Normal [facility] Progress [facility] Progress Note Normal [facility] 30on 08-07-2024 30 Normal [facility] 30 Normal [facility] 30 Normal [facility] [id number] 08-07-2024 [id number] Normal [facility] Progress Noteon 08-07-2024 Progress Note Normal [facility] 30on 08-06-2024 30 Normal [facility] 30 Normal [facility] [id number] 08-06-2024 [id number] Pt cont's on IV AtBs '. Plan is for pt to return to [facility]. Auth and HECTOR needed prior to DC. CM to follow. Normal [facility] [id number] Normal [facility] Comprehensive metabolic 1998 panelon 08-06-2024 Albumin [Mass/Vol] 2.4 g/dL Low 3.4 - 4.8 g/dL [facility] ALP [Catalytic activity/Vol] 72 U/L 40 - 150 U/L [facility] ALT [Catalytic activity/Vol] 24 U/L NINF - 30 U/L [facility] Anion gap [Moles/Vol] 7 mmol/L 3 - 13 mmol/L [facility] AST [Catalytic activity/Vol] 21 U/L NINF - 34 U/L [facility] Bilirubin [Mass/Vol] 0.9 mg/dL NINF - 1.2 mg/dL [facility] Calcium [Mass/Vol] 8.4 mg/dL Low 8.8 - 10. 0 mg/dL [facility] Chloride [Moles/Vol] 115 mmol/L High 98 - 10 7 mmol/L [facility] CO2 [Moles/Vol] 17 mmol/L Low 23 - 31 mmol/L [facility] Creatinine [Mass/Vol] 0.91 mg/dL 0.57 - 1.11 mg/dL [facility] GFR/1.73 sq M.predicted (S/P/Bld) [Vol rate/Area] 62.3 mL/min - PINF [facility] Comment on above: Calculation based on the Chronic Kidney Disease Epidemiology Collaboration (CKD-EPI) equation refit without adjustment for race Glucose [Mass/Vol] 92 mg/dL 82 - 115 mg/dL [facility] Interpretation and review of laboratory results Abnormal [facility] Potassium [Moles/Vol] 3.8 mmol/L 3.5 - 5.1 mmol/L [facility] Comment on above: Plasma potassium chris ues may be up to 0.5 mmol/L lower than serum values. Protein [Mass/Vol] 5.5 g/dL Low 6.4 - 8.3 g/dL [facility] Sodium [Moles/Vol] 139 mmol/L 136 - 145 mmol/L [facility] Urea nitrogen [Mass/Vol] 9 mg/dL 9 - 23 mg/dL [facility] Consulton 08-06-2024 Consult Normal [facility] Progress Noteon 08-06-2024 Progress Note Normal [facility] Progress Note Normal [facility] 30on 08-05-2024 30 Normal [facility] CBC W Auto Differential pane l (Bld)Ordered By: Frank Milligan on 08-05-2024 Basophils (Bld) [#/Vol] 0 10*3/uL 0.0 - 0.2 10*3/uL [facility] Basophils/100 WBC (Bld) 0.3 % 0.0 - 2.0 % [facility] Eosinophils (Bld) [#/Vol] 0.1 10*3/uL 0.0 - 0.5 10*3/uL [facility] Eosinophils/100 WBC (Bld) 1.6 % 0.0 - 6.0 % [facility] Erythrocyte distribution width (RBC) [Ratio] 18.9 % High 11.5 - 15.0 % [facility] Hematocrit (Bld) [Volume fraction] 33.3 % Low 35.0 - 47.0 % [facility] Hemoglobin (Bld) [Mass/Vol] 10.3 g/dL Low 11.7 - 16.0 g/dL [facility] Immature granulocytes (Bld) [#/Vol] 0.1 10*3/uL High NINF - 0.1 10*3/uL [facility] Immature granulocytes/100 WBC (Bld) 0.7 % 0.0 - 2.0 % [facility] Interpretation and review of laboratory results Abnormal [facility] Lymphocytes (Bld) [#/Vol] 1.1 10*3/uL 1.0 - 4.3 10*3/uL [facility] Lymphocytes/100 WBC (Bld) 15.6 % 15.0 - 45.0 % [facility] MCH (RBC) [Entitic mass] 26 pg 26.0 - 34.0 pg [facility] MCHC (RBC) [Mass/Vol] 30.9 % 30.5 - [...] [#/Vol] 7.3 10*3/uL 3.6 - 10.7 10*3/uL [facility] CBC W Auto Differential pane l [...] 9.9 g/dL Low 11.7 - 16.0 g/dL [facility] Immature granulocytes (Bld) [#/Vol] 0 10*3/uL NINF - 0.1 10*3/uL [facility] Immature granulocytes/100 WBC (Bld) 0.5 % 0.0 - 2.0 % [facility] Interpretation and review of laboratory results Abnormal [facility] Lymphocytes (Bld) [#/Vol] 1.1 10*3/uL 1.0 - 4.3 10*3/uL [facility] Lymphocytes/100 WBC (Bld) 16.6 % 15.0 - 45.0 % [facility] MCH (RBC) [Entitic mass] 26.2 pg 26.0 - 34.0 pg [facility] MCHC (RBC) [Mass/Vol] 31 % 30.5 - 36.0 % [facility] MCV (RBC) [Entitic vol] 84.4 fL 77.0 - 99.0 fL [facility] Monocytes (Bld) [#/Vol] 0.6 10*3/uL 0.0 - 0.9 10*3/uL [facility] Monocytes/100 WBC (Bld) 9.1 % 5.0 - 13.0 % [facility] Neutrophils (Bld) [#/Vol] 4.7 10*3/uL 1.8 - 7.5 10*3/uL [facility] Neutrophils/100 WBC (Bld) 72 % 38.0 - 82.0 % [facility] Nucleated RBC/100 WBC (Bld) [Ratio] 0 % [facility] Platelet mean volume (Bld) [Entitic vol] 10 fL 9.0 - 12.7 fL [facility] Platelets (Bld) [#/Vol] 242 10*3/uL 140 - 440 10*3/uL [facility] RBC (Bld) [#/Vol] 3.78 10*6/uL Low 3.80 - 5.2 0 10*6/uL [facility] WBC (Bld) [#/Vol] 6.5 10*3/uL 3.6 - 10.7 10*3/uL [facility] CBC WITH AUTO DIFFERENTIALon 08-05-2024 Basophils (Bld) [#/Vol] 0.0 10*3/uL Normal 0.0-0.2 [facility] Comment on above: Performed By: #### L [id number] ####Insurance Billing Specialist: VELMA VALADEZ ([phone])[facility])[address] [place] [address] Basophils/100 WBC (Bld) 0.3 % Normal 0.0-2.0 [facility] Comment on above: Performed By: #### L [id number] ####Insurance Billing Specialist: VELMA VALADEZ ([phone])[facility])[address] [place] [address] Eosinophils (Bld) [#/Vol] 0.1 10*3/uL Normal 0.0-0.5 [facility] Comment on above: Performed By: #### L [id number] ####Insurance Billing Specialist: VELMA VALADEZ ([phone])[facility])[address] [place] [address] Eosinophils/100 WBC (Bld) 1.6 % Normal 0.0-6.0 [facility] Comment on above: Performed By: #### L [id number] ####Insurance Billing Specialist: VELMA VALADEZ ([phone])[facility])[address] [place] [address] Erythrocyte distribution width (RBC) [Ratio] 18.9 % High 11.5-15.0 [facility] Comment on above: Performed By: #### L [id number] ####Insurance Billing Specialist: VELMA VALADEZ ([phone])[facility])[address] [place] [address] Hematocrit (Bld) [Volume fraction] 33.3 % Low 35.0-47.0 [facility] Comment on above: Performed By: #### L [id number] ####Insurance Billing Specialist: VELMA VALADEZ ([phone])[facility])[address] [place] [address] Hemoglobin (Bld) [Mass/Vol] 10.3 g/dL Low 11.7-16.0 [facility] Comment on above: Performed By: #### L [id number] ####Insurance Billing Specialist: VELMA VALADEZ ([phone])[facility] ([facility])[address] [place] [address] IMMATURE GRANS % 0.7 % Normal 0.0-2.0 [facility] Comment on above: Performed By: #### L [id number] ####Insurance Billing Specialist: VELMA VALADEZ ([phone])[facility])[address] [place] [address] IMMATURE GRANS ABSOLUTE 0.1 10*3/uL High <0.1 [facility] Comment on above: Performed By: #### L [id number] ####Insurance Billing Specialist: VELMA VALADEZ ([phone])[facility])[address] [place] [address] Lymphocytes (Bld) [#/Vol] 1.1 10*3/uL Normal 1.0-4.3 [facility] Comment on above: Performed By: #### L [id number] ####Insurance Billing Specialist: VELMA VALADEZ ([phone])[facility])[address] [place] [address] Lymphocytes/100 WBC (Bld) 15.6 % Normal 15.0-45.0 [facility] Comment on above: Performed By: #### L [id number] ####Insurance Billing Specialist: VELMA VALADEZ ([phone])[facility])[address] [place] [address] MCH (RBC) [Entitic mass] 26.0 pg Normal 26.0-34.0 [facility] Comment on above: Performed By: #### L [id number] ####Insurance Billing Specialist: VELMA VALADEZ ([phone])[facility])[address] [place] [address] MCHC 30.9 % Normal 30.5-36.0 [facility] Comment on above: Performed By: #### L [id number] ####Insurance Billing Specialist: VELMA VALADEZ ([phone])[facility])[address] [place] [address] MCV (RBC) [Entitic vol] 84.1 fL Normal 77.0-99.0 [facility] Comment on above: Performed By: #### L [id number] ####Insurance Billing Specialist: VELMA VALADEZ ([phone])[facility])[address] [place] [address] Monocytes (Bld) [#/Vol] 0.7 10*3/uL Normal 0.0-0.9 [facility] Comment on above: Performed By: #### L [id number] ####Insurance Billing Specialist: VELMA VALADEZ ([phone])[facility] ([facility])[address] [place] [address] Monocytes/100 WBC (Bld) 9.9 % Normal 5.0-13.0 [facility] Comment on above: Performed By: #### L [id number] ####Insurance Billing Specialist: VELMA VALADEZ ([phone])[facility])[address] [place] [address] NEUTROPHILS ABSOLUTE 5.3 10*3/uL Normal 1.8-7.5 [facility] Comment on above: Performed By: #### L [id number] ####Insurance Billing Specialist: VELMA VALADEZ ([phone])[facility] ([facility])[address] [place] [address] Neutrophils/100 WBC (Bld) 71.9 % Normal 38.0-82.0 [facility] Comment on above: Performed By: #### L [id number] ####Insurance Billing Specialist: VELMA VALADEZ ([phone])[facility] ([facility])[address] [place] [address] NRBC 0.0 /100 WBCs Normal 0.0-2.0 [facility] Comment on above: Performed By: #### L [id number] ####Insurance Billing Specialist: VELMA VALADEZ ([phone])[facility])[address] [place] [address] Platelet mean volume (Bld) [Entitic vol] 9.2 fL Normal 9.0-12.7 [facility] Comment on above: Performed By: #### L [id number] ####Insurance Billing Specialist: VELMA VALADEZ ([phone])[facility] ([facility])[address] [place] [address] Platelets (Bld) [#/Vol] 235 10*3/uL Normal 140-440 [facility] Comment on above: Performed By: #### L [id number] ####Insurance Billing Specialist: VELMA VALADEZ ([phone])[facility] ([facility])[address] [place] [address] RBC (Bld) [#/Vol] 3.96 10*6/uL Normal 3.80-5.20 [facility] Comment on above: Performed By: #### L [id number] ####Insurance Billing Specialist: VELMA VALADEZ ([phone])[facility] ([facility])[address] [place] [address] WBC (Bld) [#/Vol] 7.3 10*3/uL Normal 3.6-10.7 [facility] Comment on above: Performed By: #### L [id number] ####Insurance Billing Specialist: VELMA VALADEZ ([phone])[facility] ([facility])[address] [place] [address] Basophils (Bld) [#/Vol] 0.0 10*3/uL Normal 0.0-0.2 [facility] Comment on above: Performed By: #### L [id number] ####Insurance Billing Specialist: VELMA VALADEZ ([phone])[facility] ([facility])[address] [place] [address] Basophils/100 WBC (Bld) 0.3 % Normal 0.0-2.0 [facility] Comment on above: Performed By: #### L [id number] ####Insurance Billing Specialist: VELMA VALADEZ ([phone])[facility] ([facility])[address] [place] [address] Eosinophils (Bld) [#/Vol] 0.1 10*3/uL Normal 0.0-0.5 [facility] Comment on above: Performed By: #### L [id number] ####Insurance Billing Specialist: VELMA VALADEZ ([phone])[facility])[address] [place] [address] Eosinophils/100 WBC (Bld) 1.5 % Normal 0.0-6.0 [facility] Comment on above: Performed By: #### L [id number] ####Insurance Billing Specialist: VELMA VALADEZ ([phone])[facility])[address] [place] [address] Erythrocyte distribution width (RBC) [Ratio] 19.2 % High 11.5-15.0 [facility] Comment on above: Performed By: #### L [id number] ####Insurance Billing Specialist: VELMA VALADEZ ([phone])[address] Hematocrit (Bld) [Volume fraction] 31.9 % Low 35.0-47.0 [facility] Comment on above: Performed By: #### L [id number] ####Insurance Billing Specialist: VELMA VALADEZ ([phone])[facility])[address] [place] [address] Hemoglobin (Bld) [Mass/Vol] 9.9 g/dL Low 11.7-16.0 [facility] Comment on above: Performed By: #### L [id number] ####Insurance Billing Specialist: VELMA VALADEZ ([phone])[facility])[address] [place] [address] IMMATURE GRANS % 0.5 % Normal 0.0-2.0 [facility] Comment on above: Performed By: #### L [id number] ####Insurance Billing Specialist: VELMA VALADEZ ([phone])[address] IMMATURE GRANS ABSOLUTE 0.0 10*3/uL Normal <0.1 [facility] Comment on above: Performed By: #### L [id number] ####Insurance Billing Specialist: VELMA VALADEZ ([phone])[place] [address] [place] Lymphocytes (Bld) [#/Vol] 1.1 10*3/uL Normal 1.0-4.3 [facility] Comment on above: Performed By: #### L [id number] ####Insurance Billing Specialist: VELMA VALADEZ ([phone])[facility])[address] [place] [address] Lymphocytes/100 WBC (Bld) 16.6 % Normal 15.0-45.0 [facility] Comment on above: Performed By: #### L [id number] ####Insurance Billing Specialist: VELMA VALADEZ ([phone])[facility])[address] [place] [address] MCH (RBC) [Entitic mass] 26.2 pg Normal 26.0-34.0 [facility] Comment on above: Performed By: #### L [id number] ####Insurance Billing Specialist: VELMA VALADEZ ([phone])[facility])[address] [place] [address] MCHC 31.0 % Normal 30.5-36.0 [facility] Comment on above: Performed By: #### L [id number] ####Insurance Billing Specialist: VELMA VALADEZ ([phone])[facility])[address] [place] [address] MCV (RBC) [Entitic vol] 84.4 fL Normal 77.0-99.0 [facility] Comment on above: Performed By: #### L [id number] ####Insurance Billing Specialist: VELMA VALADEZ ([phone])[facility])[address] [place] [address] Monocytes (Bld) [#/Vol] 0.6 10*3/uL Normal 0.0-0.9 [facility] Comment on above: Performed By: #### L [id number] ####Insurance Billing Specialist: VELMA VALADEZ ([phone])[facility])[address] [place] [address] Monocytes/100 WBC (Bld) 9.1 % Normal 5.0-13.0 [facility] Comment on above: Performed By: #### L [id number] ####Insurance Billing Specialist: VELMA VALADEZ ([phone])[facility] ([facility])[address] [place] [address] NEUTROPHILS ABSOLUTE 4.7 10*3/uL Normal 1.8-7.5 [facility] Comment on above: Performed By: #### L [id number] ####Insurance Billing Specialist: VELMA VALADEZ ([phone])[facility] ([facility])[address] [place] [address] Neutrophils/100 WBC (Bld) 72.0 % Normal 38.0-82.0 [facility] Comment on above: Performed By: #### L [id number] ####Insurance Billing Specialist: VELMA VALADEZ ([phone])[facility] ([facility])[address] [place] [address] NRBC 0.0 /100 WBCs Normal 0.0-2.0 [facility] Comment on above: Performed By: #### L [id number] ####Insurance Billing Specialist: VELMA VALADEZ ([phone])[facility] ([facility])[address] [place] [address] Platelet mean volume (Bld) [Entitic vol] 10.0 fL Normal 9.0-12.7 [facility] Comment on above: Performed By: #### L [id number] ####Insurance Billing Specialist: VELMA VALADEZ ([phone])[facility] ([facility])[address] [place] [address] Platelets (Bld) [#/Vol] 242 10*3/uL Normal 140-440 [facility] Comment on above: Performed By: #### L [id number] ####Insurance Billing Specialist: VELMA VALADEZ ([phone])[facility] ([facility])[address] [place] [address] RBC (Bld) [#/Vol] 3.78 10*6/uL Low 3.80-5.20 [facility] Comment on above: Performed By: #### L [id number] ####Insurance Billing Specialist: VELMA VALADEZ ([phone])[facility] ([facility])[address] [place] [address] WBC (Bld) [#/Vol] 6.5 10*3/uL Normal 3.6-10.7 [facility] Comment on above: Performed By: #### L [id number] ####Insurance Billing Specialist: VELMA VALADEZ ([phone])[facility] ([facility])[address] [place] [address] COMPREHENSIVE METABOLIC PANE Gilberto 08-05-2024 Albumin [Mass/Vol] 2.4 g/dL Low 3.4-4.8 [facility] Comment on above: Performed By: #### L [id number] ####Insurance Billing Specialist: VELMA VALADEZ ([phone])[facility] ([facility])[address] [place] [address] ALP [Catalytic activity/Vol] 72 U/L Normal 40-150 [facility] Comment on above: Performed By: #### L [id number] ####Insurance Billing Specialist: VELMA VALADEZ ([phone])[facility] ([facility])[address] [place] [address] ALT [Catalytic activity/Vol] 24 U/L Normal <30 [facility] Comment on above: Performed By: #### L [id number] ####Insurance Billing Specialist: VELMA VALADEZ ([phone])[facility] ([facility])[address] [place] [address] Anion gap [Moles/Vol] 7 mmol/L Normal 3-13 [facility] Comment on above: Performed By: #### L [id number] ####Insurance Billing Specialist: VELMA VALADEZ ([phone])[facility])[address] [place] [address] AST [Catalytic activity/Vol] 21 U/L Normal <34 [facility] Comment on above: Performed By: #### L [id number] ####Insurance Billing Specialist: VELMA VALADEZ ([phone])[facility])[address] [place] [address] [place] Bilirubin [Mass/Vol] 0.9 mg/dL Normal <1.2 [facility] Comment on above: Performed By: #### L [id number] ####Insurance Billing Specialist: VELMA VALADEZ ([phone])[facility] ([facility])[address] [place] [address] Calcium [Mass/Vol] 8.4 mg/dL Low 8.8-10.0 [facility] Comment on above: Performed By: #### L [id number] ####Insurance Billing Specialist: VELMA VALADEZ ([phone])[facility] ([facility])[address] [place] [address] Chloride [Moles/Vol] 115 mmol/L High 98-107 [facility] Comment on above: Performed By: #### L [id number] ####Insurance Billing Specialist: VELMA VALADEZ ([phone])[facility] ([facility])[address] [place] [address] CO2 [Moles/Vol] 17 mmol/L Low 23-31 [facility] Comment on above: Performed By: #### L [id number] ####Insurance Billing Specialist: VELMA VALADEZ ([phone])[facility] ([facility])[address] [place] [address] Creatinine [Mass/Vol] 0.91 mg/dL Normal 0.57-1.11 [facility] Comment on above: Performed By: #### L [id number] ####Insurance Billing Specialist: VELMA VALADEZ ([phone])[facility])[address] [place] [address] [place] GLOMERULAR FILTRATION RATE ML/MIN/1.73 SQ M.PREDICTED 62.3 mL/min/1.73m*2 Normal >60.0 [facility] Comment on above: Result Comment: Calc ulation based on the Chronic Kidney Disease Epidemiology Collaboration (CKD-EPI) equation refit without adjustment for race Performed By: #### L [id number] ####Insurance Billing Specialist: VELMA VALADEZ ([phone])[facility] ([facility])[address] [place] [address] [place] Glucose [Mass/Vol] 92 mg/dL Normal 82-115 [facility] Comment on above: Performed By: #### L [id number] ####Insurance Billing Specialist: VELMA VALADEZ ([phone])[facility])[address] [place] [address] Potassium [Moles/Vol] 3.8 mmol/L Normal 3.5-5.1 [facility] Comment on above: Result Comment: [facility] potassium values may be up to 0.5 mmol/L lower than serum values. Performed By: #### L [id number] ####Insurance Billing Specialist: VELMA VALADEZ ([phone])[facility])[address] [place] [address] Protein [Mass/Vol] 5.5 g/dL Low 6.4-8.3 [facility] Comment on above: Performed By: #### L [id number] ####Insurance Billing Specialist: VELMA VALADEZ ([phone])[facility])[address] [place] [address] Sodium [Moles/Vol] 139 mmol/L Normal 136-145 [facility] Comment on above: Performed By: #### L [id number] ####Insurance Billing Specialist: VELMA VALADEZ ([phone])[facility])[address] [place] [address] Urea nitrogen [Mass/Vol] 9 mg/dL Normal 9-23 [facility] Comment on above: Performed By: #### L [id number] ####Insurance Billing Specialist: VELMA VALADEZ ([phone])[facility])[address] [place] [address] Albumin [Mass/Vol] 2.3 g/dL Low 3.4-4.8 [facility] Comment on above: Performed By: #### L [id number] ####Insurance Billing Specialist: VELMA VALADEZ ([phone])[facility])[address] [place] [address] ALP [Catalytic activity/Vol] 74 U/L Normal 40-150 [facility] Comment on above: Performed By: #### L [id number] ####Insurance Billing Specialist: VELMA VALADEZ ([phone])[facility] [place] [address] ALT [Catalytic activity/Vol] 27 U/L Normal <30 [facility] Comment on above: Performed By: #### L [id number] ####Insurance Billing Specialist: VELMA VALADEZ ([phone])[facility] ([facility])[address] [place] [address] Anion gap [Moles/Vol] 5 mmol/L Normal 3-13 [facility] Comment on above: Performed By: #### L [id number] ####Insurance Billing Specialist: VELMA VALADEZ ([phone])[facility] ([facility])[address] [place] [address] AST [Catalytic activity/Vol] 24 U/L Normal <34 [facility] Comment on above: Performed By: #### L [id number] ####Insurance Billing Specialist: VELMA VALADEZ ([phone])[facility] ([facility])[address] [place] [address] Bilirubin [Mass/Vol] 0.6 mg/dL Normal <1.2 [facility] Comment on above: Performed By: #### L [id number] ####Insurance Billing Specialist: VELMA VALADEZ ([phone])[facility] ([facility])[address] [place] [address] Calcium [Mass/Vol] 8.1 mg/dL Low 8.8-10.0 [facility] Comment on above: Performed By: #### L [id number] ####Insurance Billing Specialist: VELMA VALADEZ ([phone])[facility] ([facility])[address] [place] [address] [place] Chloride [Moles/Vol] 108 mmol/L High 98-107 [facility] Comment on above: Performed By: #### L [id number] ####Insurance Billing Specialist: VELMA VALADEZ ([phone])[facility] ([facility])[address] [place] [address] [place] CO2 [Moles/Vol] 21 mmol/L Low 23-31 [facility] Comment on above: Performed By: #### L [id number] ####Insurance Billing Specialist: VELMA VALADEZ ([phone])[facility] ([facility])[address] [place] [address] Creatinine [Mass/Vol] 0.89 mg/dL Normal 0.57-1.11 [facility] Comment on above: Performed By: #### L [id number] ####Insurance Billing Specialist: VELMA VALADEZ ([phone])[facility])[address] [place] [address] [place] GLOMERULAR FILTRATION RATE ML/MIN/1.73 SQ M.PREDICTED 64.0 mL/min/1.73m*2 Normal >60.0 [facility] Comment on above: Result Comment: Calc ulation based on the Chronic Kidney Disease Epidemiology Collaboration (CKD-EPI) equation refit without adjustment for race Performed By: #### L [id number] ####Insurance Billing Specialist: VELMA VALADEZ ([phone])[facility])[address] [place] [address] Glucose [Mass/Vol] 85 mg/dL Normal 82-115 [facility] Comment on above: Performed By: #### L [id number] ####Insurance Billing Specialist: VELMA VALADEZ ([phone])[facility])[address] [place] [address] Potassium [Moles/Vol] 3.8 mmol/L Normal 3.5-5.1 [facility] Comment on above: Result Comment: [facility] potassium values may be up to 0.5 mmol/L lower than serum values. Performed By: #### L [id number] ####Insurance Billing Specialist: VELMA VALADEZ ([phone])[facility] ([facility])[address] [place] [address] [place] Protein [Mass/Vol] 5.2 g/dL Low 6.4-8.3 [facility] Comment on above: Performed By: #### L [id number] ####Insurance Billing Specialist: VELMA VALADEZ ([phone])[facility] ([facility])[address] [place] [address] [place] Sodium [Moles/Vol] 134 mmol/L Low 136-145 [facility] Comment on above: Performed By: #### L [id number] ####Insurance Billing Specialist: VELMA VALADEZ ([phone])[address] Urea nitrogen [Mass/Vol] 13 mg/dL Normal 9-23 [facility] Comment on above: Performed By: #### L [id number] ####Insurance Billing Specialist: VELMA VALADEZ ([phone])[facility] ([address] Comprehensive metabolic 1998 panelon 08-05-2024 Albumin [Mass/Vol] 2.3 g/dL Low 3.4 - 4.8 g/dL [facility] ALP [Catalytic activity/Vol] 74 U/L 40 - 150 U/L [facility] ALT [Catalytic activity/Vol] 27 U/L NINF - 30 U/L [facility] Anion gap [Moles/Vol] 5 mmol/L 3 - 13 mmol/L [facility] AST [Catalytic activity/Vol] 24 U/L NINF - 34 U/L [facility] Bilirubin [Mass/Vol] 0.6 mg/dL NINF - 1.2 mg/dL [facility] Calcium [Mass/Vol] 8.1 mg/dL Low 8.8 - 10. 0 mg/dL [facility] Chloride [Moles/Vol] 108 mmol/L High 98 - 10 7 mmol/L [facility] CO2 [Moles/Vol] 21 mmol/L Low 23 - 31 mmol/L [facility] Creatinine [Mass/Vol] 0.89 mg/dL 0.57 - 1.11 mg/dL [facility] GFR/1.73 sq M.predicted (S/P/Bld) [Vol rate/Area] 64 mL/min - PINF [facility] Comment on above: Calculation based on the Chronic Kidney Disease Epidemiology Collaboration (CKD-EPI) equation refit without adjustment for race Glucose [Mass/Vol] 85 mg/dL 82 - 115 mg/dL [facility] Interpretation and review of laboratory results Abnormal [facility] Potassium [Moles/Vol] 3.8 mmol/L 3.5 - 5.1 mmol/L [facility] Comment on above: Plasma potassium chris ues may be up to 0.5 mmol/L lower than serum values. Protein [Mass/Vol] 5.2 g/dL Low 6.4 - 8.3 g/dL [facility] Sodium [Moles/Vol] 134 mmol/L Low 136 - 145 mmol/L [facility] Urea nitrogen [Mass/Vol] 13 mg/dL 9 - 23 mg/dL [facility] Progress Noteon 08-05-2024 Progress Note Normal [facility] Progress Note Normal [facility] 30on 08-04-2024 30 Normal [facility] 30 Normal [facility] CBC W Auto Differential pane l (Bld)Ordered By: Devika Eisenberg on 08-04-2024 Basophils (Bld) [#/Vol] 0 10*3/uL 0.0 - 0.2 10*3/uL [facility] Basophils/100 WBC (Bld) 0.2 % 0.0 - 2.0 % [facility] Eosinophils (Bld) [#/Vol] 0.1 10*3/uL 0.0 - 0.5 10*3/uL [facility] Eosinophils/100 WBC (Bld) 1.4 % 0.0 - 6.0 % [facility] Erythrocyte distribution width (RBC) [Ratio] 19.3 % High 11.5 - 15.0 % [facility] Hematocrit (Bld) [Volume fraction] 33 % Low 35.0 - 47.0 % [facility] Hemoglobin (Bld) [Mass/Vol] 10 g/dL Low 11.7 - 16.0 g/dL [facility] Immature granulocytes (Bld) [#/Vol] 0 10*3/uL NINF - 0.1 10*3/uL [facility] Immature granulocytes/100 WBC (Bld) 0.5 % 0.0 - 2.0 % [facility] Interpretation and review of laboratory results Abnormal [facility] Lymphocytes (Bld) [#/Vol] 1 10*3/uL 1.0 - 4.3 10*3/uL [facility] Lymphocytes/100 WBC (Bld) 17.7 % 15.0 - 45.0 % [facility] MCH (RBC) [Entitic mass] 25.8 pg Low 26.0 - 34.0 pg [facility] MCHC (RBC) [Mass/Vol] 30.3 % Low 30.5 - 36.0 % [facility] MCV (RBC) [Entitic vol] 85.1 fL 77.0 - 99.0 fL [facility] Monocytes (Bld) [#/Vol] 0.5 10*3/uL 0.0 - 0.9 10*3/uL [facility] Monocytes/100 WBC (Bld) 9.5 % 5.0 - 13.0 % [facility] Neutrophils (Bld) [#/Vol] 3.9 10*3/uL 1.8 - 7.5 10*3/uL [facility] Neutrophils/100 WBC (Bld) 70.7 % 38.0 - 82.0 % [facility] Nucleated RBC/100 WBC (Bld) [Ratio] 0 % [facility] Platelet mean volume (Bld) [Entitic vol] 9.8 fL 9.0 - 12.7 fL [facility] Platelets (Bld) [#/Vol] 280 10*3/uL 140 - 440 10*3/uL [facility] RBC (Bld) [#/Vol] 3.88 10*6/uL 3.80 - 5.2 0 10*6/uL [facility] WBC (Bld) [#/Vol] 5.6 10*3/uL 3.6 - 10.7 10*3/uL [facility] CBC WITH AUTO DIFFERENTIALon 08-04-2024 Basophils (Bld) [#/Vol] 0.0 10*3/uL Normal 0.0-0.2 [facility] Comment on above: Performed By: #### L [id number] ####Insurance Billing Specialist: VELMA VALADEZ ([phone])[address] Basophils/100 WBC (Bld) 0.2 % Normal 0.0-2.0 [facility] Comment on above: Performed By: #### L [id number] ####Insurance Billing Specialist: VELMA VALADEZ ([phone])[facility])[address] [place] [address] Eosinophils (Bld) [#/Vol] 0.1 10*3/uL Normal 0.0-0.5 [facility] Comment on above: Performed By: #### L [id number] ####Insurance Billing Specialist: VELMA VALADEZ ([phone])[facility])[address] [place] [address] Eosinophils/100 WBC (Bld) 1.4 % Normal 0.0-6.0 [facility] Comment on above: Performed By: #### L [id number] ####Insurance Billing Specialist: VELMA VALADEZ ([phone])[facility])[address] [place] [address] Erythrocyte distribution width (RBC) [Ratio] 19.3 % High 11.5-15.0 [facility] Comment on above: Performed By: #### L [id number] ####Insurance Billing Specialist: VELMA VALADEZ ([phone])[address] Hematocrit (Bld) [Volume fraction] 33.0 % Low 35.0-47.0 [facility] Comment on above: Performed By: #### L [id number] ####Insurance Billing Specialist: VELMA VALADEZ ([phone])[facility])[address] [place] [address] Hemoglobin (Bld) [Mass/Vol] 10.0 g/dL Low 11.7-16.0 [facility] Comment on above: Performed By: #### L [id number] ####Insurance Billing Specialist: VELMA VALADEZ ([phone])[address] IMMATURE GRANS % 0.5 % Normal 0.0-2.0 [facility] Comment on above: Performed By: #### L [id number] ####Insurance Billing Specialist: VELMA VALADEZ ([phone])[facility])[address] [place] [address] IMMATURE GRANS ABSOLUTE 0.0 10*3/uL Normal <0.1 [facility] Comment on above: Performed By: #### L [id number] ####Insurance Billing Specialist: VELMA VALADEZ ([phone])[address] Lymphocytes (Bld) [#/Vol] 1.0 10*3/uL Normal 1.0-4.3 [facility] Comment on above: Performed By: #### L [id number] ####Insurance Billing Specialist: VELMA VALADEZ ([phone])[facility])[address] [place] [address] Lymphocytes/100 WBC (Bld) 17.7 % Normal 15.0-45.0 [facility] Comment on above: Performed By: #### L [id number] ####Insurance Billing Specialist: VELMA VALADEZ ([phone])[facility])[address] [place] [address] MCH (RBC) [Entitic mass] 25.8 pg Low 26.0-34.0 [facility] Comment on above: Performed By: #### L [id number] ####Insurance Billing Specialist: VELMA VALADEZ ([phone])[facility])[address] [place] [address] MCHC 30.3 % Low 30.5-36.0 [facility] Comment on above: Performed By: #### L [id number] ####Insurance Billing Specialist: VELMA VALADEZ ([phone])[facility])[address] [place] [address] MCV (RBC) [Entitic vol] 85.1 fL Normal 77.0-99.0 [facility] Comment on above: Performed By: #### L [id number] ####Insurance Billing Specialist: VELMA VALADEZ ([phone])[facility])[address] [place] [address] Monocytes (Bld) [#/Vol] 0.5 10*3/uL Normal 0.0-0.9 [facility] Comment on above: Performed By: #### L [id number] ####Insurance Billing Specialist: VELMA VALADEZ ([phone])[facility])[address] [place] [address] Monocytes/100 WBC (Bld) 9.5 % Normal 5.0-13.0 [facility] Comment on above: Performed By: #### L [id number] ####Insurance Billing Specialist: VELMA VALADEZ ([phone])[facility] ([facility])[address] [place] [address] NEUTROPHILS ABSOLUTE 3.9 10*3/uL Normal 1.8-7.5 [facility] Comment on above: Performed By: #### L [id number] ####Insurance Billing Specialist: VELMA VALADEZ ([phone])[facility] ([facility])[address] [place] [address] Neutrophils/100 WBC (Bld) 70.7 % Normal 38.0-82.0 [facility] Comment on above: Performed By: #### L [id number] ####Insurance Billing Specialist: VELMA AVLADEZ ([phone])[facility] ([facility])[address] [place] [address] NRBC 0.0 /100 WBCs Normal 0.0-2.0 [facility] Comment on above: Performed By: #### L [id number] ####Insurance Billing Specialist: VELMA VALADEZ ([phone])[facility] ([facility])[address] [place] [address] Platelet mean volume (Bld) [Entitic vol] 9.8 fL Normal 9.0-12.7 [facility] Comment on above: Performed By: #### L [id number] ####Insurance Billing Specialist: VELMA VALADEZ ([phone])[facility] ([facility])[address] [place] [address] Platelets (Bld) [#/Vol] 280 10*3/uL Normal 140-440 [facility] Comment on above: Performed By: #### L [id number] ####Insurance Billing Specialist: VELMA VALADEZ ([phone])[facility] ([facility])[address] [place] [address] RBC (Bld) [#/Vol] 3.88 10*6/uL Normal 3.80-5.20 [facility] Comment on above: Performed By: #### L [id number] ####Insurance Billing Specialist: VELMA VALADEZ ([phone])[facility] ([facility])[address] [place] [address] WBC (Bld) [#/Vol] 5.6 10*3/uL Normal 3.6-10.7 [facility] Comment on above: Performed By: #### L [id number] ####Insurance Billing Specialist: VELMA VALADEZ ([phone])[facility] ([facility])[address] [place] [address] COMPREHENSIVE METABOLIC PANE Gilberto 08-04-2024 Albumin [Mass/Vol] 2.3 g/dL Low 3.4-4.8 [facility] Comment on above: Performed By: #### L [id number] ####Insurance Billing Specialist: VELMA VALADEZ ([phone])[facility] ([facility])[address] [place] [address] ALP [Catalytic activity/Vol] 68 U/L Normal 40-150 [facility] Comment on above: Performed By: #### L [id number] ####Insurance Billing Specialist: VELMA VALADEZ ([phone])[facility] ([facility])[address] [place] [address] ALT [Catalytic activity/Vol] 26 U/L Normal <30 [facility] Comment on above: Performed By: #### L [id number] ####Insurance Billing Specialist: VELMA VALADEZ ([phone])[facility] ([facility])[address] [place] [address] Anion gap [Moles/Vol] 6 mmol/L Normal 3-13 [facility] Comment on above: Performed By: #### L [id number] ####Insurance Billing Specialist: VELMA VALADEZ ([phone])[facility] ([facility])[address] [place] [address] AST [Catalytic activity/Vol] 25 U/L Normal <34 [facility] Comment on above: Performed By: #### L [id number] ####Insurance Billing Specialist: VELMA VALADEZ ([phone])[facility] ([facility])[address] [place] [address] Bilirubin [Mass/Vol] 0.5 mg/dL Normal <1.2 [facility] Comment on above: Performed By: #### L [id number] ####Insurance Billing Specialist: VELMA VALADEZ ([phone])[facility])[address] [place] [address] Calcium [Mass/Vol] 8.2 mg/dL Low 8.8-10.0 [facility] Comment on above: Performed By: #### L [id number] ####Insurance Billing Specialist: VELMA VALADEZ ([phone])[facility] ([facility])[address] [place] [address] Chloride [Moles/Vol] 112 mmol/L High 98-107 [facility] Comment on above: Performed By: #### L [id number] ####Insurance Billing Specialist: VELMA VALADEZ ([phone])[facility] ([facility])[address] [place] [address] CO2 [Moles/Vol] 21 mmol/L Low 23-31 [facility] Comment on above: Performed By: #### L [id number] ####Insurance Billing Specialist: VELMA VALADEZ ([phone])[facility] ([facility])[address] [place] [address] Creatinine [Mass/Vol] 1.13 mg/dL High 0.57-1.11 [facility] Comment on above: Performed By: #### L [id number] ####Insurance Billing Specialist: VELMA VALADEZ ([phone])[facility])[address] [place] [address] [place] GLOMERULAR FILTRATION RATE ML/MIN/1.73 SQ M.PREDICTED 48.1 mL/min/1.73m*2 Low >60.0 [facility] Comment on above: Result Comment: Calc ulation based on the Chronic Kidney Disease Epidemiology Collaboration (CKD-EPI) equation refit without adjustment for race Performed By: #### L [id number] ####Insurance Billing Specialist: VELMA VALADEZ ([phone])[facility] ([facility])[address] [place] [address] Glucose [Mass/Vol] 153 mg/dL High 82-115 [facility] Comment on above: Performed By: #### L [id number] ####Insurance Billing Specialist: VELMA VALADEZ ([phone])[facility])[address] [place] [address] Potassium [Moles/Vol] 3.9 mmol/L Normal 3.5-5.1 [facility] Comment on above: Result Comment: [facility] potassium values may be up to 0.5 mmol/L lower than serum values. Performed By: #### L [id number] ####Insurance Billing Specialist: VELMA VALADEZ ([phone])[facility] ([facility])[address] [place] [address] Protein [Mass/Vol] 5.2 g/dL Low 6.4-8.3 [facility] Comment on above: Performed By: #### L [id number] ####Insurance Billing Specialist: VELMA VALADEZ ([phone])[facility])[address] [place] [address] Sodium [Moles/Vol] 139 mmol/L Normal 136-145 [facility] Comment on above: Performed By: #### L [id number] ####Insurance Billing Specialist: VELMA VALADEZ ([phone])[facility])[address] [place] [address] Urea nitrogen [Mass/Vol] 26 mg/dL High 9-23 [facility] Comment on above: Performed By: #### L [id number] ####Insurance Billing Specialist: VELMA VALADEZ ([phone])[facility])[address] [place] [address] Comprehensive metabolic 1998 panelon 08-04-2024 Albumin [Mass/Vol] 2.3 g/dL Low 3.4 - 4.8 g/dL [facility] ALP [Catalytic activity/Vol] 68 U/L 40 - 150 U/L [facility] ALT [Catalytic activity/Vol] 26 U/L NINF - 30 U/L [facility] Anion gap [Moles/Vol] 6 mmol/L 3 - 13 mmol/L [facility] AST [Catalytic activity/Vol] 25 U/L NINF - 34 U/L [facility] Bilirubin [Mass/Vol] 0.5 mg/dL NINF - 1.2 mg/dL [facility] Calcium [Mass/Vol] 8.2 mg/dL Low 8.8 - 10. 0 mg/dL [facility] Chloride [Moles/Vol] 112 mmol/L High 98 - 10 7 mmol/L [facility] CO2 [Moles/Vol] 21 mmol/L Low 23 - 31 mmol/L [facility] Creatinine [Mass/Vol] 1.13 mg/dL High 0.57 - 1.11 mg/dL [facility] GFR/1.73 sq M.predicted (S/P/Bld) [Vol rate/Area] 48.1 mL/min Low - PINF [facility] Comment on above: Calculation based on the Chronic Kidney Disease Epidemiology Collaboration (CKD-EPI) equation refit without adjustment for race Glucose [Mass/Vol] 153 mg/dL High 82 - 115 mg/dL [facility] Interpretation and review of laboratory results Abnormal [facility] Potassium [Moles/Vol] 3.9 mmol/L 3.5 - 5.1 mmol/L [facility] Comment on above: Plasma potassium chris ues may be up to 0.5 mmol/L lower than serum values. Protein [Mass/Vol] 5.2 g/dL Low 6.4 - 8.3 g/dL [facility] Sodium [Moles/Vol] 139 mmol/L 136 - 145 mmol/L [facility] Urea nitrogen [Mass/Vol] 26 mg/dL High 9 - 23 mg/dL [facility] Nursing Noteon 08-04-2024 Nursing Note Bedside swallow completed. Pt passed and tolerated well tolerated well. Normal [facility] Progress Noteon 08-04-2024 Progress Note Normal [facility] 30on 08-03-2024 30 Normal [facility] 30 Normal [facility] 30 Normal [facility] [id number] 08-03-2024 [id number] Normal [facility] BASIC METABOLIC PANELon 07-18 Anion gap [Moles/Vol] 6 mmol/L Normal 3-13 [facility] Comment on above: Performed By: #### L [id number] ####Insurance Billing Specialist: VELMA VALADEZ ([phone])[facility] ([facility])[address] [place] [address] Calcium [Mass/Vol] 8.5 mg/dL Low 8.8-10.0 [facility] Comment on above: Performed By: #### L [id number] ####Insurance Billing Specialist: VELMA VALADEZ ([phone])[facility] [place] [address] Chloride [Moles/Vol] 105 mmol/L Normal 98-107 [facility] Comment on above: Performed By: #### L [id number] ####Insurance Billing Specialist: VELMA VALADEZ ([phone])[facility] [place] [address] CO2 [Moles/Vol] 27 mmol/L Normal 23-31 [facility] Comment on above: Performed By: #### L AB15 ####Insurance Billing Specialist: VELMA VALADEZ ([phone])[facility] [place] [address] Creatinine [Mass/Vol] 1.18 mg/dL High 0.57-1.11 [facility] Comment on above: Performed By: #### L AB15 ####Insurance Billing Specialist: VELMA VALADEZ ([phone])[facility] ([facility])[address] [place] [address] GLOMERULAR FILTRATION RATE ML/MIN/1.73 SQ M.PREDICTED 45.6 mL/min/1.73m*2 Low >60.0 [facility] Comment on above: Result Comment: Calc ulation based on the Chronic Kidney Disease Epidemiology Collaboration (CKD-EPI) equation refit without adjustment for race Performed By: #### L AB15 ####Insurance Billing Specialist: VELMA VALADEZ ([phone])[facility] ([facility])[address] [place] [address] [place] Glucose [Mass/Vol] 100 mg/dL Normal 82-115 [facility] Comment on above: Performed By: #### L AB15 ####Insurance Billing Specialist: VELMA VALADEZ ([phone])[facility] ([facility])[address] [place] [address] [place] Potassium [Moles/Vol] 4.7 mmol/L Normal 3.5-5.1 [facility] Comment on above: Result Comment: [facility] potassium values may be up to 0.5 mmol/L lower than serum values. Performed By: #### L AB15 ####Insurance Billing Specialist: VELMA VALADEZ ([phone])[facility] ([facility])[address] [place] [address] Sodium [Moles/Vol] 138 mmol/L Normal 136-145 [facility] Comment on above: Performed By: #### L AB15 ####Insurance Billing Specialist: VELMA VALADEZ ([phone])[facility] [place] [address] Urea nitrogen [Mass/Vol] 33 mg/dL High 9-23 [facility] Comment on above: Performed By: #### L [id number] ####Insurance Billing Specialist: VELMA VALADEZ ([phone])[facility] [place] [address] Basic metabolic 1998 panelOr dered By: Juni Millard on 08-03-2024 Anion gap [Moles/Vol] 6 mmol/L 3 - 13 mmol/L [facility] Calcium [Mass/Vol] 8.5 mg/dL Low 8.8 - 10. 0 mg/dL [facility] Chloride [Moles/Vol] 105 mmol/L 98 - 10 7 mmol/L [facility] CO2 [Moles/Vol] 27 mmol/L 23 - 31 mmol/L [facility] Creatinine [Mass/Vol] 1.18 mg/dL High 0.57 - 1.11 mg/dL [facility] GFR/1.73 sq M.predicted (S/P/Bld) [Vol rate/Area] 45.6 mL/min Low - PINF [facility] Comment on above: Calculation based on the Chronic Kidney Disease Epidemiology Collaboration (CKD-EPI) equation refit without adjustment for race Glucose [Mass/Vol] 100 mg/dL 82 - 115 mg/dL [facility] Interpretation and review of laboratory results Abnormal [facility] Potassium [Moles/Vol] 4.7 mmol/L 3.5 - 5.1 mmol/L [facility] Comment on above: Plasma potassium chris ues may be up to 0.5 mmol/L lower than serum values. Sodium [Moles/Vol] 138 mmol/L 136 - 145 mmol/L [facility] Urea nitrogen [Mass/Vol] 33 mg/dL High 9 - 23 mg/dL [facility] CBC W Auto Differential pane l (Bld)Ordered By: Christin Mayes on 08-03-2024 Erythrocyte distribution width (RBC) [Ratio] 19.4 % High 11.5 - 15.0 % [facility] Hematocrit (Bld) [Volume fraction] 38.7 % 35.0 - 47.0 % [facility] Hemoglobin (Bld) [Mass/Vol] 12.1 g/dL 11.7 - 16.0 g/dL [facility] MCH (RBC) [Entitic mass] 26 pg 26.0 - 34.0 pg [facility] MCHC (RBC) [Mass/Vol] 31.3 % 30.5 - 36.0 % [facility] MCV (RBC) [Entitic vol] 83.2 fL 77.0 - 99.0 fL [facility] Nucleated RBC/100 WBC (Bld) [Ratio] 0 % [facility] Platelet mean volume (Bld) [Entitic vol] 9.8 fL 9.0 - 12.7 fL [facility] Comment on above: MPV is a calculated measurement using platelet volume ratio Platelets (Bld) [#/Vol] 303 10*3/uL 140 - 440 10*3/uL [facility] RBC (Bld) [#/Vol] 4.65 10*6/uL 3.80 - 5.2 0 10*6/uL [facility] WBC (Bld) [#/Vol] 9.1 10*3/uL 3.6 - 10.7 10*3/uL [facility] CBC WITH AUTO DIFFERENTIALon 08-03-2024 Erythrocyte distribution width (RBC) [Ratio] 19.4 % High 11.5-15.[address] [facility] Comment on above: Performed By: #### L [id number], [id number] ####Insurance Billing Specialist: VELMA VALADEZ ([phone])[facility] ([facility])[address] [place] [address] Hematocrit (Bld) [Volume fraction] 38.7 % Normal 35.0-47.0 [facility] Comment on above: Performed By: #### L [id number], [id number] ####Insurance Billing Specialist: VELMA VALADEZ ([phone])[facility] ([facility])[address] [place] [address] Hemoglobin (Bld) [Mass/Vol] 12.1 g/dL Normal 11.7-16.0 [facility] Comment on above: Performed By: #### L [id number], [id number] ####Insurance Billing Specialist: VELMA VALADEZ ([phone])[facility] ([facility])[address] [place] [address] MCH (RBC) [Entitic mass] 26.0 pg Normal 26.0-34.0 [facility] Comment on above: Performed By: #### L [id number], [id number] ####Insurance Billing Specialist: VELMA VALADEZ ([phone])[facility] ([facility])[address] [place] [address] MCHC 31.3 % Normal 30.5-36.0 [facility] Comment on above: Performed By: #### L [id number], [id number] ####Insurance Billing Specialist: VELMA VALADEZ ([phone])[facility] ([facility])[address] [place] [address] MCV (RBC) [Entitic vol] 83.2 fL Normal 77.0-99.0 [facility] Comment on above: Performed By: #### L [id number], [id number] ####Insurance Billing Specialist: VELMA VALADEZ ([phone])[facility]OSPITALSim[facility] ADAMES RITTMAN (SWRLAB)[address] [place] [address] NRBC 0.0 /100 WBCs Normal 0.0-2.0 [facility] Comment on above: Performed By: #### L [id number], [id number] ####Insurance Billing Specialist: VELMA VALADEZ ([phone])[facility]OSPITALSim[facility] ADAMES RITTMAN (SWRLAB)[address] Platelet mean volume (Bld) [Entitic vol] 9.8 fL Normal 9.0-12.7 [facility] Comment on above: Result Comment: MPV is a calculated measurement using platelet volume ratio Performed By: #### L [id number], [id number] ####Insurance Billing Specialist: VELMA VALADEZ ([phone])[facility]OSPITALSim[facility] ADAMES RITTMAN (SWRLAB)[address] Platelets (Bld) [#/Vol] 303 10*3/uL Normal 140-440 [facility] Comment on above: Performed By: #### [place]on [id number], [id number] ####Insurance Billing Specialist: VELMA VALADEZ ([phone])[facility] HOSPITALSim[facility] AD[facility] (SWRLAB)[address] [place] [address] RBC (Bld) [#/Vol] 4.65 10*6/uL Normal 3.80-5.20 [facility] Comment on above: Performed By: #### Weston [id number], [id number] ####Insurance Billing Specialist: VELMA VALADEZ ([phone])[facility] HOSPITALSimran AD[facility] (SWRLAB)[address] [place] [address] WBC (Bld) [#/Vol] 9.1 10*3/uL Normal 3.6-10.7 [facility] Comment on above: Performed By: #### [place]on [id number], [id number] ####Insurance Billing Specialist: VELMA VALADEZ ([phone])[facility] HOSPITALSim[facility] AD[facility] (SWRLAB)[address] COMPREHENSIVE METABOLIC PANE Gilberto 08-03-2024 Albumin [Mass/Vol] 2.8 g/dL Low 3.4-4.8 [facility] Comment on above: Performed By: #### L AB17, [id number], LAB99 ####Insurance Billing Specialist: VELMA VALADEZ ([phone])INNA ADAMES [facility] (SWRLAB)[address] [place] [address] [place] ALP [Catalytic activity/Vol] 82 U/L Normal 40-150 [facility] Comment on above: Performed By: #### L AB17, [id number], LAB99 ####Insurance Billing Specialist: VELMA VALADEZ ([phone])[facility]ITALSim[facility] (SWRLAB)[address] ALT [Catalytic activity/Vol] 26 U/L Normal <30 [facility] Comment on above: Performed By: #### L AB17, [id number], LAB99 ####Insurance Billing Specialist: VELMA VALADEZ ([phone])[facility]PITALROSANGEL[facility] (SWRLAB)[address] Anion gap [Moles/Vol] 9 mmol/L Normal 3-13 [facility] Comment on above: Performed By: #### Weston AB17, [id number], LAB99 ####Insurance Billing Specialist: VELMA VALADEZ ([phone])[facility]ITALSim[facility] (SWRLAB)[address] AST [Catalytic activity/Vol] 36 U/L High <34 [facility] Comment on above: Result Comment: TCSi gnificant interference from hemolysis. Result integrity compromised. Interpret with caution. Performed By: #### L AB17, [id number], LAB99 ####Insurance Billing Specialist: VELMA VALADEZ ([phone])[facility]OSPITALSim[facility] AD[facility] (SWRLAB)[address] [place] [address] [place] Bilirubin [Mass/Vol] 0.7 mg/dL Normal <1.2 [facility] Comment on above: Performed By: #### L AB17, [id number], LAB99 ####Insurance Billing Specialist: VELMA VALADEZ ([phone])[facility]EL[facility] (SWRLAB)[address] Calcium [Mass/Vol] 9.0 mg/dL Normal 8.8-10.0 [facility] Comment on above: Performed By: #### L AB17, [id number], LAB99 ####Insurance Billing Specialist: VELMA VALADEZ ([phone])[facility]ITALSim[facility] ADAMES [facility] (SWRLAB)[address] [place] [address] [place] Chloride [Moles/Vol] 109 mmol/L High 98-107 [facility] Comment on above: Performed By: #### L AB17, [id number], LAB99 ####Insurance Billing Specialist: VELMA VALADEZ ([phone])[facility]ITALSim[facility] AD[facility] (SWRLAB)[address] [place] [address] [place] CO2 [Moles/Vol] 21 mmol/L Low 23-31 [facility] Comment on above: Performed By: #### Weston AB17, [id number], LAB99 ####Insurance Billing Specialist: VELMA VALADEZ ([phone])[facility]PITALSim[facility] ADAMES [facility] (SWRLAB)[address] [place] [address] [place] Creatinine [Mass/Vol] 1.30 mg/dL High 0.57-1.11 [facility] Comment on above: Performed By: #### Weston AB17, [id number], LAB99 ####Insurance Billing Specialist: VELMA VALADEZ ([phone])[facility]OSPITALSimran ADAMES [facility] (SWRLAB)[address] [place] [address] GLOMERULAR FILTRATION RATE ML/MIN/1.73 SQ M.PREDICTED 40.6 mL/min/1.73m*2 Low >60.0 [facility] Comment on above: Result Comment: Calc ulation based on the Chronic Kidney Disease Epidemiology Collaboration (CKD-EPI) equation refit without adjustment for race Performed By: #### L AB17, [id number], LAB99 ####Insurance Billing Specialist: VELMA VALADEZ ([phone])[facility]OSPITALSim[facility] ADAMES [facility] (SWRLAB)[address] [place] [address] [place] Glucose [Mass/Vol] 103 mg/dL Normal 82-115 [facility] Comment on above: Performed By: #### L AB17, [id number], LAB99 ####Insurance Billing Specialist: VELMA VALADEZ ([phone])[facility]ITALSim[facility] ADAMES [facility] (SWRLAB)[address] [place] [address] [place] Potassium [Moles/Vol] 5.9 mmol/L High 3.5-5.1 [facility] Comment on above: Result Comment: TCSi gnificant interference from hemolysis. Result integrity compromised. Interpret with caution. Performed By: #### L AB17, [id number], LAB99 ####Insurance Billing Specialist: VELMA VALADEZ ([phone])[facility]OSPITALSim[facility] ADAMES [facility] (SWRLAB)[address] Protein [Mass/Vol] 6.7 g/dL Normal 6.4-8.3 [facility] Comment on above: Result Comment: TCPo tential interference from hemolysis Performed By: #### Weston AB17, [id number], LAB99 ####Insurance Billing Specialist: VELMA VALADEZ ([phone])[facility]PITALSim[facility] ADAMES [facility] (SWRLAB)[address] Sodium [Moles/Vol] 139 mmol/L Normal 136-145 [facility] Comment on above: Performed By: #### Weston AB17, [id number], LAB99 ####Insurance Billing Specialist: VELMA VALADEZ ([phone])[facility]ITALSim[facility] ADAMES [facility] (SWRLAB)[address] [place] [address] Urea nitrogen [Mass/Vol] 34 mg/dL High 9-23 [facility] Comment on above: Performed By: #### L AB17, [id number], LAB99 ####Insurance Billing Specialist: VELMA VALADEZ ([phone])[facility]ITALSim[facility] ADAMES [facility] (SWRLAB)[address] [place] [address] CT ABDOMEN PELVIS WO IV CONT RASTon 08-03-2024 CT ABDOMEN PELVIS WO IV CONTRAST Normal [facility] CT Abdomen and Pelvis WO con traston 08-03-2024 1. Extensive colonic diverticulosis without evidence of diverticulitis 2. Consolidation in the medial left lower lobe, possibly pneumonia 3. No bowel dilatation Report Dictated on Electronically Signed By: Ming Fry MD Electronically Signed Date/Time: 08/03/2024 4:05 AM EST [facility] Patient Name: MEL CARVER RD : 1940 Exam Date/Time: 08/03/2024 03:05 Procedure: CT ABDOMEN [...] Lymph nodes: Unremarkable. No enlarged lymph nodes. [facility] Ming Fry MD - 08/03/2024 Patient Name: MEL POP : 1940 Exam Date/Time: 08/03/2024 03:05 Procedure: CT ABDOMEN [...] MD Electronically Signed Date/Time: 08/03/2024 4:05 AM [facility] Radiology Study observation (narrative) [facility] He alth CT Abdomen and Pelvis WO con trastOrdered By: Ming Fry on 08-03-2024 [facility] Work Phone: Comprehensive metabolic 1998 panelon 08-03-2024 Albumin [Mass/Vol] 2.8 g/dL Low 3.4 - 4.8 g/dL [facility] ALP [Catalytic activity/Vol] 82 U/L 40 - 150 U/L [facility] ALT [Catalytic activity/Vol] 26 U/L NINF - 30 U/L [facility] Anion gap [Moles/Vol] 9 mmol/L 3 - 13 mmol/L [facility] AST [Catalytic activity/Vol] 36 U/L High NINF - 34 U/L [facility] Comment on above: TC Significant interference from hemolysis. Result integrity compromised. Interpret with caution. Bilirubin [Mass/Vol] 0.7 mg/dL NINF - 1.2 mg/dL [facility] Calcium [Mass/Vol] 9 mg/dL 8.8 - 10. 0 mg/dL [facility] Chloride [Moles/Vol] 109 mmol/L High 98 - 10 7 mmol/L [facility] CO2 [Moles/Vol] 21 mmol/L Low 23 - 31 mmol/L [facility] Creatinine [Mass/Vol] 1.3 mg/dL High 0.57 - 1.11 mg/dL [facility] GFR/1.73 sq M.predicted (S/P/Bld) [Vol rate/Area] 40.6 mL/min Low - PINF [facility] Comment on above: Calculation based on the Chronic Kidney Disease Epidemiology Collaboration (CKD-EPI) equation refit without adjustment for race Glucose [Mass/Vol] 103 mg/dL 82 - 115 mg/dL [facility] Interpretation and review of laboratory results Abnormal [facility] Potassium [Moles/Vol] 5.9 mmol/L High 3.5 - 5.1 mmol/L [facility] Comment on above: TC Significant interference from hemolysis. Result integrity compromised. Interpret with caution. Protein [Mass/Vol] 6.7 g/dL 6.4 - 8.3 g/dL [facility] Comment on above: TC Potential interference from hemolysis Sodium [Moles/Vol] 139 mmol/L 136 - 145 mmol/L [facility] Urea nitrogen [Mass/Vol] 34 mg/dL High 9 - 23 mg/dL [facility] ED Nursing Noteon 08-03-2024 ED Nursing Note Pt placed in roundtrip Normal [facility] ED Nursing Note ED CT and ED xray notified that patient is ready Normal [facility] ED Provider Noteon ED Provider Note Normal [facility] GASTROINTESTINAL PCR PANELon 08-03-2024 GASTROINTESTINAL PCR PANEL Normal [facility] Comment on above: Performed By: #### L [id number] ####Insurance Billing Specialist: VELMA VALADEZ ([phone])[facility] (SACLAB)[address] [place] [address] Gastrointestinal pathogens p masoud OXANA+probe (Stl)Ordered By: Maximus Dimas on 08-03-2024 Adenovirus F 40/41 Not detected Not Detected [facility] Astrovirus Not detected Not Detected [facility] Campylobacter Not detected Not Detected [facility] Cryptosporidium Not detected Not Detected [facility] Cyclospora cayetanensis Not detected Not Detected [facility] Entamoeba histolytica Not detected Not Detected [facility] Enterotoxigenic E coli (ETEC) Not detected Not Detected [facility] Giardia lamblia Not detected Not Detected [facility] Interpretation and review of laboratory results Abnormal [facility] Norovirus GI/GII Detected Abnormal Not Detected [facility] Plesiomonas shigelloides Not detected Not Detected [facility] Rotavirus A Not detected Not Detected [facility] Salmonella Not detected Not Detected [facility] Sapovirus Not detected Not Detected [facility] Shiga toxin-producing E coli (STEC) Not detected Not Detected [facility] Shigella/Enteroinvasive E coli (EIEC) Not detected Not Detected [facility] Vibrio cholerae Not detected Not Detected [facility] Vibrio species Not detected Not Detected [facility] Yersinia enterocolitica Not detected Not Detected [facility] A positive Norovirus result on the Film Array GI panel should be interpreted in the context of the patient's history and clinical picture. If results are not consistent, result should be confirmed with a Norovirus specific assay. Methodology: Multiplex PCR [facility] LACTIC ACID WITH REFLEXon Lactate [Moles/Vol] 1.9 mmol/L Normal 0.5-2.2 [facility] Comment on above: Performed By: #### L [id number] ####Insurance Billing Specialist: VELMA VALADEZ ([phone])[facility] (SACLAB)[address] LIPASEon 08-03-2024 Lipase [Catalytic activity/Vol] 8 U/L Normal <55 [facility] Comment on above: Performed By: #### L AB17, [id number], LAB99 ####Insurance Billing Specialist: VELMA VALADEZ ([phone])[facility] (SWRLAB)[address] [place] [address] Laboratory - Chemistry and C hemistry - challengeon 08-03-2024 Lactate [Moles/Vol] 1.9 mmol/L 0.5 - 2. 2 mmol/L [facility] Anion gap (Bld) [Moles/Vol] 8 mmol/L 3.00 - 13.00 [facility] Calcium.ionized (Bld) [Moles/Vol] 4.7 mg/dl 4.30 - 5.20 mg/dl [facility] Chloride [Moles/Vol] 107 mmol/L 98 - 11 4 mmol/L [facility] CO2 [Moles/Vol] 23 mmol/L 21 - 29 mmol/L [facility] Creatinine [Mass/Vol] 1.3 mg/dL 0.6 - 1.3 mg/dL [facility] GFR/1.73 sq M.predicted CKD-EPI (S/P/Bld) [Vol rate/Area] 40.6 [facility] Comment on above: KDIGO guidelines pro vide [...] 118 mg/dL High 70 - 100 mg/dL [facility] Potassium [Moles/Vol] 4.3 mmol/L 3.4 - 5.1 mmol/L [facility] Sodium [Moles/Vol] 138 mmol/L 133 - 145 mmol/L [facility] Urea (Bld) [Mass/Vol] 33 mg/dL High 4 - 22 mg/dL [facility] Lipase [Catalytic activity/Vol] 8 U/L NINF - 55 U/L [facility] Magnesium [Mass/Vol] 1.9 mg/dL 1.6 - 2 .6 mg/dL [facility] Laboratory - Microbiology an d Antimicrobial susceptibilityon 08-03-2024 FLUAV RNA OXANA+probe Ql (Resp) Not detected Not Detected [facility] FLUBV RNA OXANA+probe Ql (Resp) Not detected Not Detected [facility] RSV RNA OXANA+probe Ql (Resp) Not detected Not Detected [facility] SARS-CoV-2 (COVID-19) RNA OXANA+probe Ql (Resp) Not detected Not Detected [facility] SARS-CoV-2 (COVID-19) RNA OXANA+probe Ql (Unsp spec) Methodology: real-time, RT-PCR The SARS-CoV-2, Flu A/B, and RSV Combo assay is intended for in vitro diagnostic use under the FDA Emergency Use Authorization (EUA). This test has not been FDA cleared or approved. In compliance with this authorization, please visit www.fda.gov/media/68096 5/download or www.fda.gov/media/79620 6/download to access the applicable information sheets. [facility] MAGNESIUMon 08-03-2024 Magnesium [Mass/Vol] 1.9 mg/dL Normal 1.6-2.6 [facility] Comment on above: Result Comment: BUBBA Garcia COMMENTS:Higher values can be expected in females during menses. Performed By: #### L AB17, [id number], LAB99 ####Insurance Billing Specialist: VELMA VALADEZ ([phone])[facility] (SWRLAB)[address] [place] [address] MANUAL DIFFERENTIALon 2024 BASOPHILS (10*3/UL) IN BLOOD BY MANUAL COUNT 0.0 10*3/uL Normal 0.0-0.2 [facility] Comment on above: Performed By: #### L [id number], [id number] ####Insurance Billing Specialist: VELMA VALADEZ ([phone])[facility] (SWRLAB)[address] [place] [address] [place] BASOPHILS TOTAL PER COUNTED LEUKOCYTES BY MANUAL COUNT 0 Normal [facility] Comment on above: Performed By: #### L [id number], [id number] ####Insurance Billing Specialist: VELMA VALADEZ ([phone])TIFFANY[facility] ROSANGELA R[facility] (SWRLAB)[address] [place] [address] [place] BASOPHILS/100 LEUKOCYTES IN BLOOD BY MANUAL COUNT 0 % Normal 0-2 [facility] Comment on above: Performed By: #### L [id number], [id number] ####Insurance Billing Specialist: VELMA VALADEZ ([phone])[facility]ITAL[facility] ROS[facility]ELA [facility] (SWRLAB)[address] [place] [address] [place] CELLS COUNTED TOTAL (#) IN BLOOD 100 Normal [facility] Comment on above: Performed By: #### L [id number], [id number] ####Insurance Billing Specialist: VELMA VALADEZ ([phone])[facility]ITALA ROSANGELA [facility] (SWRLAB)[address] [place] [address] [place] DIFFERENTIAL METHOD Automated differenti al reported after manual slide review Normal [facility] Comment on above: Performed By: #### L [id number], [id number] ####Insurance Billing Specialist: VELMA VALADEZ ([phone])[facility] ROS[facility]A [facility] (SWRLAB)[address] [place] [address] [place] EOSINOPHILS (10*3/UL) IN BLOOD BY MANUAL COUNT 0.1 10*3/uL Normal 0.0-0.5 [facility] Comment on above: Performed By: #### L [id number], [id number] ####Insurance Billing Specialist: VELMA VALADEZ ([phone])[facility] ROS[facility]A [facility] (SWRLAB)[address] [place] [address] [place] EOSINOPHILS TOTAL PER COUNTED LEUKOCYTES BY MANUAL COUNT 1 Normal 0-1 [facility] Comment on above: Performed By: #### L [id number], [id number] ####Insurance Billing Specialist: VELMA VALADEZ ([phone])[facility] (SWRLAB)[address] [place] [address] [place] EOSINOPHILS/100 LEUKOCYTES IN BLOOD BY MANUAL COUNT 1 % Normal 0-6 [facility] Comment on above: Performed By: #### L [id number], [id number] ####Insurance Billing Specialist: VELMA VALADEZ ([phone])[facility]A ROSANGELA [facility] (SWRLAB)[address] [place] [address] [place] LEUKOCYTE MORPHOLOGY FINDING IN BLOOD Normal Normal [facility] Comment on above: Performed By: #### L [id number], [id number] ####Insurance Billing Specialist: VELMA VALADEZ ([phone])[facility]A [facility] (SWRLAB)[address] [place] [address] [place] LEUKOCYTES (10*3/UL) NUCLEATED ERYTHROCYTE ADJUST 9.1 10*3/uL Normal 3.6-10.7 [facility] Comment on above: Performed By: #### L [id number], [id number] ####Insurance Billing Specialist: VELMA VALADEZ ([phone])[facility]A [facility] (SWRLAB)[address] [place] [address] [place] LYMPHOCYTES (10*3/UL) IN BLOOD BY MANUAL COUNT 0.5 10*3/uL Low 1.0-4.3 [facility] Comment on above: Performed By: #### L [id number], [id number] ####Insurance Billing Specialist: VELMA VALADEZ ([phone])[facility]A [facility] (SWRLAB)[address] [place] [address] [place] LYMPHOCYTES TOTAL PER COUNTED LEUKOCYTES BY MANUAL COUNT 5 Normal [facility] Comment on above: Performed By: #### L [id number], [id number] ####Insurance Billing Specialist: VELMA VALADEZ ([phone])[facility]A [facility] (SWRLAB)[address] [place] [address] [place] LYMPHOCYTES/100 LEUKOCYTES IN BLOOD BY MANUAL COUNT 5 % Low 15-45 [facility] Comment on above: Performed By: #### L [id number], [id number] ####Insurance Billing Specialist: VELMA VALADEZ ([phone])[facility]ITALSim[facility] AD[facility] (SWRLAB)[address] [place] [address] [place] MONOCYTES (10*3/UL) IN BLOOD BY MANUAL COUNT 0.5 10*3/uL Normal 0.0-0.9 [facility] Comment on above: Performed By: #### L [id number], [id number] ####Insurance Billing Specialist: VELMA VALADEZ ([phone])[facility]ITALSim[facility] AD[facility] (SWRLAB)[address] [place] [address] [place] MONOCYTES TOTAL PER COUNTED LEUKOCYTES BY MANUAL COUNT 6 Normal [facility] Comment on above: Performed By: #### [place]on [id number], [id number] ####Insurance Billing Specialist: VELMA VALADEZ ([phone])[facility]ITALSim[facility] (SWRLAB)[address] [place] [address] [place] MONOCYTES/100 LEUKOCYTES IN BLOOD BY MANUAL COUNT 6 % Normal 5-13 [facility] Comment on above: Performed By: #### L [id number], [id number] ####Insurance Billing Specialist: VELMA VALADEZ ([phone])[facility]ITAL[facility] (SWRLAB)[address] [place] [address] [place] NEUTROPHILS (SEGS+BANDS) (10*3/UL) BY MANUAL COUNT 7.9 10*3/uL High 1.8-7.0 [facility] Comment on above: Performed By: #### L [id number], [id number] ####Insurance Billing Specialist: VELMA VALADEZ ([phone])[facility]ITALSim[facility] (SWRLAB)[address] [place] [address] [place] NEUTROPHILS TOTAL PER COUNTED LEUKOCYTES BY MANUAL COUNT 87 Normal [facility] Comment on above: Performed By: #### L [id number], [id number] ####Insurance Billing Specialist: VELMA VALADEZ ([phone])[facility]A [facility] (SWRLAB)[address] [place] [address] [place] PLATELET MORPHOLOGY IN BLOOD Normal Normal [facility] Comment on above: Performed By: #### L [id number], [id number] ####Insurance Billing Specialist: VELMA VALADEZ ([phone])[facility] (SWRLAB)[address] [place] [address] [place] RBC MORPHOLOGY IN BLOOD Normal Normal S [facility] Comment on above: Performed By: #### L [id number], [id number] ####Insurance Billing Specialist: VELMA VALADEZ ([phone])[facility] (SWRLAB)[address] [place] [address] [place] SEGEMENTED NEUTROPHILS/100 LEUKOCYTES BY MANUAL COUNT 87 % High 38-82 [facility] Comment on above: Performed By: #### L [id number], [id number] ####Insurance Billing Specialist: VELMA VALADEZ ([phone])[facility]ITALSimran SANCHEZROSANGELA RITTMAN (SWRLAB)[address] [place] [address] [place] UNCLASSIFIED CELLS (10*3/UL) IN BLOOD BY MANUAL COUNT 0.1 10*3/uL Normal [facility] Comment on above: Performed By: #### L [id number], [id number] ####Insurance Billing Specialist: VELMA VALADEZ ([phone])[facility]ITALSim[facility] SANCHEZROSANGELA RITTMAN (SWRLAB)[address] [place] [address] [place] UNCLASSIFIED CELLS/100 LEUKOCYTES IN BLOOD 1.00 % Normal [facility] Comment on above: Performed By: #### L [id number], [id number] ####Insurance Billing Specialist: VELMA VALADEZ ([phone])[facility] (SWRLAB)[address] [place] [address] [place] Magnesium [Mass/Vol]on 08-03 Higher values can be expected in females during menses. [facility] Manual differential performe d Ql (Bld)on 08-03-2024 Basophils (Bld) [#/Vol] 0 10*3/uL 0.0 - 0.2 10*3/uL [facility] Basophils Manual [address] [facility] alth Basophils/100 WBC (Bld) 0 % 0 - 2 % [facility] Cells Counted Total (Bld) [#] 100 {cells} [facility] Differential Method Automated differenti al reported after manual slide review [facility] Eosinophils (Bld) [#/Vol] 0.1 10*3/uL 0.0 - 0.5 10*3/uL [facility] Eosinophils Manual 1 0 - 1 [facility] Eosinophils/100 WBC (Bld) 1 % 0 - 6 % [facility] Leukocyte morphology finding Nom (Bld) Normal [facility] Lymphocytes (Bld) [#/Vol] 0.5 10*3/uL Low 1.0 - 4.3 10*3/uL [facility] Lymphocytes Manual 5 [facility] Lymphocytes/100 WBC (Bld) 5 % Low 15 - 45 % [facility] Monocytes (Bld) [#/Vol] 0.5 10*3/uL 0.0 - 0.9 10*3/uL [facility] Monocytes Manual [address] [facility] alth Monocytes/100 WBC (Bld) 6 % 5 - 13 % [facility] Neutrophils (Bld) [#/Vol] 7.9 10*3/uL High 1.8 - 7.0 10*3/uL [facility] Neutrophils Manual 87 [facility] Platelet morphology finding Nom (Bld) Normal [facility] RBC morphology finding Nom (Bld) Normal [facility] Segmented neutrophils/100 WBC (Bld) 87 % High 38 - 82 % [facility] Unclassified Cells % 1 % [facility] Unclassified Cells, Abs. 0.1 10*3/uL [facility] WBC corrected for nucl RBC (Bld) [#/Vol] 9.1 10*3/uL 3.6 - 10.7 10*3/uL [facility] No Panel Informationon 08-03 Interpretation and review of laboratory results Normal [facility] Interpretation and review of laboratory results Abnormal [facility] Performed by: [facility], [address] [place] [address] CLIA ID: [id number] [facility] Interpretation and review of laboratory results Normal [facility] No Panel InformationOrdered By: Christin Mayes on 08-03-2024 Interpretation and review of laboratory results Abnormal [facility] SARS-COV-2, FLU A/B, AND RSV COMBOon 08-03-2024 SARS-CoV-2 (COVID-19) RNA OXANA+probe Ql (Unsp spec) Normal [facility] Comment on above: Performed By: #### L [id number] ####Insurance Billing Specialist: VELMA VALADEZ ([phone])[facility] (SWRLAB)[address] [place] [address] SARS-CoV-2, Flu A/B, and RSV Comboon 08-03-2024 Interpretation and review of laboratory results Normal [facility] XR Chest Single viewon 08-03 No acute abnormality Report Dictated on Electronically Signed By: Ming Fry MD Electronically Signed Date/Time: 08/03/2024 3:33 AM EST [facility] Patient Name: MEL CARVER RD [...] within the right humerus. No acute fracture. [facility] Ming Fry MD - 08/03/2024 [...] Electronically Signed Date/Time: 08/03/2024 3:33 AM EST [facility] Mammotome Radiology Study observation (narrative) [facility] alth XR Chest Single viewOrdered By: Ming Fry on 08-03-2024 bOombate Work Phone: ANES POSTPROC EVALon 025 ANES POSTPROC EVAL HNO ID: [id number] Author: ROBINSON BRUNNER MD Service: ? Author Type: Anesthesiologist Type: Anesthesia Postprocedure Evaluation Filed: 07/31/2024 12:48 Note Text: POST ANESTHESIA EVALUATION NOTE : 1940 Procedure Summary Date: 07/27/24 Room / Location: [address] Anesthesia Start: 1114 Anesthesia Stop: 1322 Procedures: [facility]OMY [facility]G [facility] W/ REMOVAL OF [...] with this procedure. Documented by Mikhail Nichols APRN.SCHOOL BUS TECHNICIAN 07/27/2024 1:22 PM EST SIGNATURE: Robinson Pizano MD PATIENT NAME: Mel Castillo DATE: July 31, 2024 TIME: 12:46 PM CSN: [id number] Normal [facility] ANES PRE-OPon 07-27-2024 ANES PRE-OP HNO ID: [id number] Author: ROBINSON BRUNNER MD Service: ? Author Type: Anesthesiologist Type: Anesthesia Preprocedure Evaluation Filed: 07/27/2024 11:10 Note Text: ANESTHESIOLOGY DAY OF SURGERY NOTE : 1940 Procedure Information Date/Time: 07/27/24 1110 Procedures: VITRECTOMY 25G [facility] PARS PLANA APPROACH W/ REMOVAL OF PRERETINAL CELLULAR MEMBRANE (Right: Eye) RELEASE OF VITREOUS, CHOROIDAL FLUID, PARS PLANA APPROACH (Right: Eye) Location: [place] [address] / [facility] Surgeons: Savana Lopez MD Estimated [...] tiotropium 2.5 (more content not included)... Normal [facility] OPERATIVE NOon 07-27-2024 OPERATIVE NO HNO ID: [id number] Author: SAVANA LOPEZ MD Service: Ophthalmology Author Type: Physician Type: Operative Report Filed: 07/27/2024 13:20 Note Text: [place] [address] [place] [facility] OPERATIVE REPORT LOG ID: [id number] Surgery/Procedure Date: 07/27/2024 Incision/Procedure Start Time: 11:39 AM Incision Close/Procedure End Time: 1:07 PM NAME: Mel F [facility] #: [id number] SURGEON(S) AND PRINTING ROLLER POLISHER(S): Surgeons and Role: Panel 1: * Savana [...] was repaired by the use of max alternative dispute resolution mediator forceps and vitreous cutter. This was a [...] times thro (more content not included)... Normal [facility] BSCAN OD (RIGHT EYE)on 07-24 [facility] Right eye Photo documentatio non 07-24-2024 [facility] BSCAN OD (RIGHT EYE)on 07-23 Radiology Study observation (narrative) [facility] Right eye Photo documentatio non 07-23-2024 Radiology Study observation (narrative) [facility] CASE MANAGEMon 07-18-2024 CASE MANAGEM HNO ID: [id number] Author: DOMINIQUE RAMSAY LSW Service: ? Author Type: Windows Support Engineer Type: Care Mgt Progress Note Filed: 07/18/2024 11:21 Note Text: CARE MANAGEMENT DISCHARGE NOTE SERVICE DATE: July 18, 2024 SERVICE TIME: 11:19 AM Admission Date: 07/07/2024 LOS: 11 days Discharge Arrangement Discharge Arrangement: Custodial Facility Services Arranged Medical Services: Other: See Comment (N/A) Caregiver Assessment Caregiver is ready, willing and able to meet the patient's needs as recommended by the inter-professional team: Yes Name of Caregiver: Rosangela Tomlin Transportation Arrangements Transportation Arrangements: Ambulance Transportation Agency and Phone #:: [facility] [phone] Date of Trip: 07/18/24 Time of Trip: 1100 Type of Service: BLS Non-emergency Handoff Communication: Handoff to: Primary Care Physician Primary Care Physician Name/Phone: Jared Evans Additional Information: Discharge Information Row Name Admission (Current) from 07/07/2024 in HOSP MAIN H060 Custodial Facility Agency [facility]-[address] [place] [address] Patient d/c ready to [facility] SNF via [facility] with scrap picker scheduled for 11am today by Stretcher. Patient aware of plan. Bedside RN aware of plan and provided number to call report for nurse report; call [phone] :) Women Nurse can transfer you to the 2nd floor. . 7000 and DC instructions sent to [facility] via [employer] and are in DC packet. DC packet in chart to go with patient. SIGNATURE: SHAQUILLE Garay PATIENT NAME: Mel Castillo DATE: July 18, 2024 TIME: 11:19 AM Normal [facility] CBC panel Auto (Bld)on 07-18 Erythrocyte distribution width (RBC) [Ratio] 17.5 % High 11.5-15.[address] [facility] Comment on above: Order Comment: Speci men Type: BLOOD SPECIMEN Ordering Facility: [facility] Address: [address] [place] [address] Performed By: #### 5 8410-2 #### [facility] CLIA [id number] [address] [place] [address] [place] Hematocrit (Bld) [Volume fraction] 33.8 % Low 36.0-46.[address] [facility] Comment on above: Order Comment: Speci men Type: BLOOD SPECIMEN Ordering Facility: [facility] Address: [address] [place] [address] Performed By: #### 5 8410-2 #### [facility] CLIA [id number] [address] [place] [address] [place] Hemoglobin (Bld) [Mass/Vol] 10.5 g/dL Low 11.5-15.[address] [facility] Comment on above: Order Comment: Speci men Type: BLOOD SPECIMEN Ordering Facility: [facility] Address: [address] [place] [address] Performed By: #### 5 8410-2 #### [facility] CLIA [id number] [address] [place] [address] [place] MCH (RBC) [Entitic mass] 26.0 pg Normal 26.0-34.[address] [facility] Comment on above: Order Comment: Speci men Type: BLOOD SPECIMEN Ordering Facility: [facility] Address: [address] [place] [address] Performed By: #### 5 8410-2 #### [facility] CLIA [id number] [address] [place] [address] [place] MCHC (RBC) [Mass/Vol] 31.1 g/dL Normal 30.5-36.0 [facility] Comment on above: Order Comment: Speci men Type: BLOOD SPECIMEN Ordering Facility: [facility] Address: [address] [place] [address] Performed By: #### 5 8410-2 #### [facility] CLIA [id number] [address] [place] [address] [place] MCV (RBC) [Entitic vol] 83.7 fL Normal 80.0-100.0 [facility] Comment on above: Order Comment: Speci men Type: BLOOD SPECIMEN Ordering Facility: [facility] Address: [address] [place] [address] Performed By: #### 5 8410-2 #### [facility] CLIA [id number] [address] [place] [address] [place] Nucleated RBC (Bld) [#/Vol] 10*3/uL Normal <0.[address] [facility] Comment on above: Order Comment: Speci men Type: BLOOD SPECIMEN Ordering Facility: [facility] Address: [address] [place] [address] Performed By: #### 5 8410-2 #### [facility] CLIA [id number] [address] [place] [address] [place] Platelet mean volume (Bld) [Entitic vol] 9.3 fL Normal 9.0-12.[address] [facility] Comment on above: Order Comment: Speci men Type: BLOOD SPECIMEN Ordering Facility: [facility] Address: [address] [place] [address] Performed By: #### 5 8410-2 #### [facility] CLIA [id number] [address] [place] [address] [place] Platelets (Bld) [#/Vol] 386 10*3/uL Normal 150-[address] [facility] Comment on above: Order Comment: Speci men Type: BLOOD SPECIMEN Ordering Facility: [facility] Address: [address] [place] [address] Performed By: #### 5 8410-2 #### [facility] CLIA [id number] [address] [place] [address] [place] RBC (Bld) [#/Vol] 4.04 10*6/uL Normal 3.90-5.20 [facility] Comment on above: Order Comment: Speci men Type: BLOOD SPECIMEN Ordering Facility: [facility] Address: [address] [place] [address] Performed By: #### 5 8410-2 #### [facility] CLIA [id number] [address] [place] [address] [place] WBC (Bld) [#/Vol] 10.81 10*3/uL Normal 3.70-11.00 [facility] Comment on above: Order Comment: Speci men Type: BLOOD SPECIMEN Ordering Facility: [facility] Address: [address] [place] [address] Performed By: #### 5 8410-2 #### [facility] CLIA [id number] [address] [place] [address] [place] CNDSon 07-18-2024 CNDS HNO ID: [id number] Author: BRIANA PRITCHARD MD Service: General Internal Medicine Author Type: Physician Type: Discharge Summary Filed: 07/18/2024 08:53 Note Text: DISCHARGE SUMMARY PATIENT NAME: Mel Csatillo ADMISSION DATE: 07/07/2024 DISCHARGE DATE: 07/18/24 ATTENDING [...] 10:45 AM Savana Lopez MD OPHTMN Inez Virgen REASON FOR HOSPITALIZATION/PRINCIP AL DIAGNOSES: Acute angle-closure [...] May 2024 who presents to OSH from [facility] for further evaluation of R acute angle [...] fluid, more apparent serous RD from to . Patient may have developed hemorraghic cho (more content not included)... Normal [facility] Renal function 2000 panelon 07-18-2024 Albumin [Mass/Vol] 3.2 g/dL Low 3.9-4.9 [facility] Comment on above: Order Comment: Rhina mason Type: BLOOD SPECIMEN Ordering Facility: [facility] Address: [address] [place] [address] Performed By: #### 2 4362-6 #### [facility] CLIA [id number] [address] [place] [address] [place] [address] [place] Anion gap [Moles/Vol] 11 mmol/L Normal 8-15 [facility] Comment on above: Order Comment: Rhina mason Type: BLOOD SPECIMEN Ordering Facility: [facility] Address: [address] [id number] Performed By: #### 2 4362-6 #### [facility] CLIA [id number] [address] [place] [address] [place] Calcium [Mass/Vol] 9.3 mg/dL Normal 8.5-10.2 [facility] Comment on above: Order Comment: Speci men Type: BLOOD SPECIMEN Ordering Facility: [facility] Address: [address] [place], [place] [address] Performed By: #### 2 4362-6 #### [facility] CLIA [id number] [address] [place] [address] [place] Chloride [Moles/Vol] 102 mmol/L Normal 98-107 [facility] Comment on above: Order Comment: Speci men Type: BLOOD SPECIMEN Ordering Facility: [facility] Address: [address] [place] [address] Performed By: #### 2 4362-6 #### [facility] CLIA [id number] [address] [place] [address] [place] CO2 [Moles/Vol] 25 mmol/L Normal 22-[address] [facility] Comment on above: Order Comment: Speci men Type: BLOOD SPECIMEN Ordering Facility: [facility] Address: [address] [place], [place] [address] Performed By: #### 2 4362-6 #### [facility] CLIA [id number] [address] [place], [place] [address] [place] Creatinine [Mass/Vol] 0.90 mg/dL Normal 0.58-0.96 [facility] Comment on above: Order Comment: Speci men Type: BLOOD SPECIMEN Ordering Facility: [facility] Address: [address] [place], [place] [address] Performed By: #### 2 4362-6 #### [facility] CLIA [id number] [address] [place], [place] [address] [place] Creatinine and Glomerular filtration rate.predicted panel (S/P/Bld) 63 mL/min/1.73m??? Normal >=[address] [facility] Comment on above: Order Comment: Rhina mason Type: BLOOD SPECIMEN Ordering Facility: [facility] Address: [address] [place] [address] Result Comment: Isa mated Glomerular Filtration Rate [...] GFR. Performed By: #### 2 4362-6 #### [facility] CLIA [id number] [address] [place] [address] [place] Glucose [Mass/Vol] 105 mg/dL High 74-99 [facility] Comment on above: Order Comment: Rhina mason Type: BLOOD SPECIMEN Ordering Facility: [facility] Address: [address] [place] [address] Result Comment: The [place] Diabetes Association (ADA) provides guidance for cutoff [...] Standards of Medical Care in Diabetes 2016, [place] [employer]. Diabetes Care. 2016.39(Suppl 1). Performed By: #### 2 4362-6 #### [facility] CLIA [id number] [address] [place] [address] [place] Phosphate [Mass/Vol] 3.0 mg/dL Normal 2.7-4.8 [facility] Comment on above: Order Comment: Speci men Type: BLOOD SPECIMEN Ordering Facility: [facility] Address: [address] [place] [address] Performed By: #### 2 4362-6 #### [facility] CLIA [id number] [address] [place] [address] [place] Potassium [Moles/Vol] 4.5 mmol/L Normal 3.7-5.1 [facility] Comment on above: Order Comment: Speci men Type: BLOOD SPECIMEN Ordering Facility: [facility] Address: [address] [place] [address] Performed By: #### 2 4362-6 #### [facility] CLIA [id number] [address] [place] [address] [place] Sodium [Moles/Vol] 138 mmol/L Normal 136-144 [facility] Comment on above: Order Comment: Speci men Type: BLOOD SPECIMEN Ordering Facility: [facility] Address: [address] [place] [address] Performed By: #### 2 4362-6 #### [facility] CLIA [id number] [address] [place] [address] [place] Urea nitrogen [Mass/Vol] 17 mg/dL Normal 7-[address] [facility] Comment on above: Order Comment: Speci men Type: BLOOD SPECIMEN Ordering Facility: [facility] Address: [address] [place] [address] Performed By: #### 2 4362-6 #### [facility] CLIA [id number] [address] [place] [address] [place] CASE MANAGEMon 07-17-2024 CASE MANAGEM HNO ID: [id number] Author: ?, ?, ? Service: ? Author Type: ? Type: Care Mgt Progress Note Filed: 07/17/2024 14:07 Note Text: CARE MANAGEMENT PROGRESS NOTE SERVICE DATE: 07/17/2024 SERVICE TIME: 2:07 PM LOS: 10 days Discharge packet completed and dropped off by clinical lab assistant Tamiko Holley. Packet is missing AVS/DC forms, please reach out to case consultant with any discharge related questions. SIGNATURE: Tamiko Holley PATIENT NAME: Mel Castillo DATE: July 17, 2024 TIME: 2:07 PM [facility] CASE MANAGEM HNO ID: [id number] Author: DOMINIQUE RAMSAY LSW Service: ? Author Type: Windows Support Engineer Type: Care Mgt Progress Note Filed: 07/17/2024 13:44 Note Text: CARE MANAGEMENT HOLIDAY PLANNING NOTE DISCHARGE OR POSSIBLE DISCHARGE Date/Time: 07/18 at 11am Disposition: Custodial Facility - Precert Obtained: Yes Facility Name: [facility] Facility Phone #: Transport: Mode of Transportation: Ambulance Transportation Agency and Phone #: [facility] [phone] . Date of Trip: 07/18/2024 at 11am Other Concerns: 11 am DC via [facility] trip# #[id number] to take Pt to [facility]. Pre-cert is approved, a bed is available, and Pt is medically ready. 7000 has been tasked. DC packet has been tasked. DNR form is on green chart. Weekend Preschool Director Pager #: Please see Treatment Team for Care Management Weekend/Holiday coverage. SIGNATURE: SHAQUILLE Garay PATIENT NAME: Mel Castillo DATE: July 17, 2024 TIME: 1:42 PM PAGER/CONTACT #: [facility] CASE MANAGEM HNO ID: [id number] Author: BASILIA CAPPS, ? Service: ? Author Type: ? Type: Care Mgt Progress Note Filed: 07/17/2024 13:14 Note Text: [facility] PRECERT NOTE [employer] MEDICARE PPO approved Custodial Facility for [facility] . Precert approved through 07/19/2024. For any additional questions regarding approvals, transport or care management needs, please contact the CM assigned to this patient in the Treatment Team. SIGNATURE: Basilia Capps DATE: July 17, 2024 TIME: 1:14 PM [facility] CASE MANAGEM HNO ID: [id number] Author: DOMINIQUE RAMSAY LSW Service: General Internal Medicine Author Type: Windows Support Engineer Type: Care Mgt Progress Note Filed: 07/17/2024 11:29 Note Text: Attestation signed by Thomas Car DO at 07/17/2024 11:37 AM Thomas Car D.O. PGY-2 Internal Medicine Resident [facility] Click here to page July 17, [...] problems. * Attending Physician: Briana Pritchard MD Normal [facility] CBC panel Auto (Bld)on 07-17 Erythrocyte distribution width (RBC) [Ratio] 17.2 % High 11.5-15.[address] [facility] Comment on above: Order Comment: Speci men Type: BLOOD SPECIMEN Ordering Facility: [facility] Address: [address] [place] [address] Performed By: #### 2 276-4 #### [facility] CLIA [id number] [address] [place] [address] [place] Hematocrit (Bld) [Volume fraction] 32.3 % Low 36.0-46.[address] [facility] Comment on above: Order Comment: Speci men Type: BLOOD SPECIMEN Ordering Facility: [facility] Address: [address] [place] [address] Performed By: #### 2 276-4 #### [facility] CLIA [id number] [address] [place] [address] [place] Hemoglobin (Bld) [Mass/Vol] 10.2 g/dL Low 11.5-15.[address] [facility] Comment on above: Order Comment: Speci men Type: BLOOD SPECIMEN Ordering Facility: [facility] Address: [address] [place] [address] Performed By: #### 2 276-4 #### [facility] CLIA [id number] [address] [place] [address] [place] MCH (RBC) [Entitic mass] 26.5 pg Normal 26.0-34.[address] [facility] Comment on above: Order Comment: Speci men Type: BLOOD SPECIMEN Ordering Facility: [facility] Address: [address] [place] [address] Performed By: #### 2 276-4 #### [facility] CLIA [id number] [address] [place] [address] [place] MCHC (RBC) [Mass/Vol] 31.6 g/dL Normal 30.5-36.0 [facility] Comment on above: Order Comment: Speci men Type: BLOOD SPECIMEN Ordering Facility: [facility] Address: [address] [place] [address] Performed By: #### 2 276-4 #### [facility] CLIA [id number] [address] [place] [address] [place] MCV (RBC) [Entitic vol] 83.9 fL Normal 80.0-100.0 [facility] Comment on above: Order Comment: Speci men Type: BLOOD SPECIMEN Ordering Facility: [facility] Address: [address] [place] [address] Performed By: #### 2 276-4 #### [facility] CLIA [id number] [address] [place] [address] [place] Nucleated RBC (Bld) [#/Vol] 10*3/uL Normal <0.[address] [facility] Comment on above: Order Comment: Speci men Type: BLOOD SPECIMEN Ordering Facility: [facility] Address: [address] [place] [address] Performed By: #### 2 276-4 #### [facility] CLIA [id number] [address] [place] [address] [place] Platelet mean volume (Bld) [Entitic vol] 9.7 fL Normal 9.0-12.[address] [facility] Comment on above: Order Comment: Speci men Type: BLOOD SPECIMEN Ordering Facility: [facility] Address: [address] [place] [address] Performed By: #### 2 276-4 #### [facility] CLIA [id number] [address] [place] [address] [place] Platelets (Bld) [#/Vol] 362 10*3/uL Normal 150-[address] [facility] Comment on above: Order Comment: Speci men Type: BLOOD SPECIMEN Ordering Facility: [facility] Address: [address] [place] [address] Performed By: #### 2 276-4 #### [facility] CLIA [id number] [address] [place] [address] [place] RBC (Bld) [#/Vol] 3.85 10*6/uL Low 3.90-5.20 [facility] Comment on above: Order Comment: Speci men Type: BLOOD SPECIMEN Ordering Facility: [facility] Address: [address] [place] [address] Performed By: #### 2 276-4 #### [facility] CLIA [id number] [address] [place] [address] [place] WBC (Bld) [#/Vol] 9.41 10*3/uL Normal 3.70-11.00 [facility] Comment on above: Order Comment: Speci men Type: BLOOD SPECIMEN Ordering Facility: [facility] Address: [address] [place] [address] Performed By: #### 2 276-4 #### [facility] IA [id number] [address] [place] [address] [place] Renal function 2000 panelon 07-17-2024 Albumin [Mass/Vol] 3.3 g/dL Low 3.9-4.9 [facility] Comment on above: Order Comment: Speci men Type: BLOOD SPECIMENOrdering Facility: [facility] Address: [address] [place] [address] Performed By: #### 2 4362-6 ####[facility] [id number] [place] [address] [place] Anion gap [Moles/Vol] 10 mmol/L Normal 8-15 [facility] Comment on above: Order Comment: Speci men Type: BLOOD SPECIMENOrdering Facility: [facility] Address: [address] [place] [address] Performed By: #### 2 4362-6 ####[facility] [id number] [address] [address] [place] Calcium [Mass/Vol] 9.0 mg/dL Normal 8.5-10.2 [facility] Comment on above: Order Comment: Speci men Type: BLOOD SPECIMENOrdering Facility: [facility] Address: [address] [place] [address] Performed By: #### 2 4362-6 ####[facility] [id number] [place] [address] [place] Chloride [Moles/Vol] 101 mmol/L Normal 98-107 [facility] Comment on above: Order Comment: Speci men Type: BLOOD SPECIMENOrdering Facility: [facility] Address: [address] [place] [address] Performed By: #### 2 4362-6 ####[facility] [id number] [place] [address] [place] CO2 [Moles/Vol] 25 mmol/L Normal 22-[address] [facility] Comment on above: Order Comment: Speci men Type: BLOOD SPECIMENOrdering Facility: [facility] Address: [address] [place] [address] Performed By: #### 2 4362-6 ####[facility] [id number] [place] [address] [place] Creatinine [Mass/Vol] 0.94 mg/dL Normal 0.58-0.96 [facility] Comment on above: Order Comment: Speci men Type: BLOOD SPECIMENOrdering Facility: [facility] Address: [address] [place] [address] Performed By: #### 2 4362-6 ####[facility] [id number] [address] STATES OF [facility] Creatinine and Glomerular filtration rate.predicted panel (S/P/Bld) 60 mL/min/1.73m??? Normal >=[address] [facility] Comment on above: Order Comment: Speci men Type: BLOOD SPECIMENOrdering Facility: [facility] Address: [address] [place] [address] Result Comment: Isa mated Glomerular Filtration Rate [...] actual GFR. Performed By: #### 2 4362-6 ####[facility] [id number] [place] [address] [place] [place] Glucose [Mass/Vol] 112 mg/dL High 74-99 [facility] Comment on above: Order Comment: Speci men Type: BLOOD SPECIMENOrdering Facility: [facility] Address: [address] [place] [address] Result Comment: The [place] [employer] Association (ADA) provides guidance for cutoff [...] Standards of Medical Care in Diabetes 2016, [place] [employer]. Diabetes Care. 2016.39(Suppl 1). Performed By: #### 2 4362-6 ####[facility] [id number] [place] [address] [place] Phosphate [Mass/Vol] 2.2 mg/dL Low 2.7-4.8 [facility] Comment on above: Order Comment: Speci men Type: BLOOD SPECIMENOrdering Facility: [facility] Address: [address] [place] [address] Performed By: #### 2 4362-6 ####[facility] [id number] [place] [address] [place] Potassium [Moles/Vol] 4.6 mmol/L Normal 3.7-5.1 [facility] Comment on above: Order Comment: Speci men Type: BLOOD SPECIMENOrdering Facility: [facility] Address: [address] [place], [place] [address] Performed By: #### 2 4362-6 ####[facility] [id number] [place] [id number] [place] Sodium [Moles/Vol] 136 mmol/L Normal 136-144 [facility] Comment on above: Order Comment: Speci men Type: BLOOD SPECIMENOrdering Facility: [facility] Address: [address] [place] [address] Performed By: #### 2 4362-6 ####[facility] [id number] [place] [address] [place] Urea nitrogen [Mass/Vol] 20 mg/dL Normal 7-[address] [facility] Comment on above: Order Comment: Speci men Type: BLOOD SPECIMENOrdering Facility: [facility] Address: [address] [place] [address] Performed By: #### 2 4362-6 ####[facility] [id number] [address] [place] THERAPY NTon 07-17-2024 THERAPY NT HNO ID: [id number] Author: SANTIAGO GUZMAN OT/L Service: Occupational Therapy Author Type: Occupational Therapist Type: Therapy (PT/OT/Speech/Resp) Filed: 07/17/2024 15:14 Note Text: Occupational Therapy Treatment Summary SERVICE DATE: 07/17/2024 SERVICE TIME: 1425 to 1504 ROOM: [place] [address] OT 6 Clicks Score: 15 DISCHARGE RECOMMENDATIONS [...] (ADL), Muscle Weakness (generalized) TREATMENT INTERVENTIONS Self Assisted Management (55731) Timed Code Treatment (minutes): 39 Skilled Treatment [...] Sit to Stand, Standing Balance to Improve [place] with ADLs/Self-Care, Sitting Balance to Improve [place] with ADLs/Self-Care, Life Roles/Routines/Habits THERAPEUTIC SKILLS USED [...] to Radha (more content not included)... Normal [facility] THERAPY NT HNO ID: [id number] Author: GABRIELLA DALEY PT Service: Physical Therapy Author Type: Physical Therapist Type: Therapy (PT/OT/Speech/Resp) Filed: 07/17/2024 09:31 Note Text: Physical Therapy Evaluation Summary SERVICE DATE: 07/17/2024 SERVICE TIME: 0833 to 0912 ROOM: [place] [address] PT 6 Clicks Score: 18 DISCHARGE RECOMMENDATIONS [...] DIAGNOSIS Reduced mobility-other TREATMENT INTERVENTIONS $ Evaluation-Moderate (22031) Billed Units: 1 unit Therapeutic Activity (14240) Treatment Minutes: 10 $ Therapeutic Activity (54759) Billed Units: 1 unit Gait Training (46583) Treatment Minutes: 14 $ Gait Training (26943) Billed Units: 1 unit Evaluation, Therapeutic Activity (98351), Gait Training (41957) Timed Code Treatment (minutes): 24 Skilled Treatment [...] Conservation Training, (more content not included)... Normal [facility] BSCAN OD (RIGHT EYE)on 07-16 [facility] Radiology Study observation (narrative) [facility] CBC panel Auto (Bld)on 07-16 Erythrocyte distribution width (RBC) [Ratio] 17.8 % High 11.5-15.[address] [facility] Comment on above: Order Comment: Speci men Type: BLOOD SPECIMEN [facility] Address: [address] [place] [address] Performed By: #### 5 8410-2 #### [facility] CLIA [id number] [address] [place] [address] [place] Hematocrit (Bld) [Volume fraction] 33.2 % Low 36.0-46.[address] [facility] Comment on above: Order Comment: Speci men Type: BLOOD SPECIMEN [facility] Address: [address] [place] [address] Performed By: #### 5 8410-2 #### [facility] CLIA [id number] [address] [place] [address] [place] Hemoglobin (Bld) [Mass/Vol] 10.3 g/dL Low 11.5-15.[address] [facility] Comment on above: Order Comment: Speci men Type: BLOOD SPECIMEN [facility] Address: [address] [place] [address] Performed By: #### 5 8410-2 #### [facility] CLIA [id number] [address] [place] [address] [place] MCH (RBC) [Entitic mass] 25.6 pg Low 26.0-34.[address] [facility] Comment on above: Order Comment: Speci men Type: BLOOD SPECIMEN [facility] Address: [address] [place] [address] Performed By: #### 5 8410-2 #### [facility] CLIA [id number] [address] [place] [address] [place] MCHC (RBC) [Mass/Vol] 31.0 g/dL Normal 30.5-36.0 [facility] Comment on above: Order Comment: Speci men Type: BLOOD SPECIMEN [facility] Address: [address] [place] [address] Performed By: #### 5 8410-2 #### [facility] CLIA [id number] [address] [place] [address] [place] MCV (RBC) [Entitic vol] 82.4 fL Normal 80.0-100.0 [facility] Comment on above: Order Comment: Speci men Type: BLOOD SPECIMEN [facility] Address: [address] [place] [address] Performed By: #### 5 8410-2 #### [facility] CLIA [id number] [address] [place] [address] [place] Nucleated RBC (Bld) [#/Vol] 10*3/uL Normal <0.[address] [facility] Comment on above: Order Comment: Speci men Type: BLOOD SPECIMEN [facility] Address: [address] [place] [address] Performed By: #### 5 8410-2 #### [facility] CLIA [id number] [address] [place] [address] [place] Platelet mean volume (Bld) [Entitic vol] 9.8 fL Normal 9.0-12.[address] [facility] Comment on above: Order Comment: Speci men Type: BLOOD SPECIMEN [facility] Address: [address] [place] [address] Performed By: #### 5 8410-2 #### [facility] CLIA [id number] [address] [place] [address] [place] Platelets (Bld) [#/Vol] 348 10*3/uL Normal 150-[address] [facility] Comment on above: Order Comment: Speci men Type: BLOOD SPECIMEN [facility] Address: [address] [place] [address] Performed By: #### 5 8410-2 #### [facility] CLIA [id number] [address] [place] [address] [place] RBC (Bld) [#/Vol] 4.03 10*6/uL Normal 3.90-5.20 [facility] Comment on above: Order Comment: Speci men Type: BLOOD SPECIMEN [facility] Address: [address] [place] [address] Performed By: #### 5 8410-2 #### [facility] CLIA [id number] [address] [place] [address] [place] WBC (Bld) [#/Vol] 11.15 10*3/uL High 3.70-11.00 [facility] Comment on above: Order Comment: Speci men Type: BLOOD SPECIMEN [facility] Address: [address] [place] [address] Performed By: #### 5 8410-2 #### [facility] CLIA [id number] [address] [place] [address] [place] FUNDUS PHOTOS OU (BOTH EYES) on 07-16-2024 [facility] Radiology Study observation [facility]ative) [facility]al function 2000 panelon 07-16-2024 Albumin [Mass/Vol] 3.1 g/dL Low 3.9-4.9 [facility] Comment on above: Order Comment: Speci men Type: BLOOD SPECIMENOrdering Facility: [facility] Address: [address] [place] [address] Performed By: #### 2 4362-6 ####[facility] [id number] [place] [address] [place] Anion gap [Moles/Vol] 12 mmol/L Normal 8-15 [facility] Comment on above: Order Comment: Speci men Type: BLOOD SPECIMENOrdering Facility: [facility] Address: [address] [place] [address] Performed By: #### 2 4362-6 ####[facility] [id number] [place] [address] [place] Calcium [Mass/Vol] 9.0 mg/dL Normal 8.5-10.2 [facility] Comment on above: Order Comment: Speci men Type: BLOOD SPECIMENOrdering Facility: [facility] Address: [address] [place] [address] Performed By: #### 2 4362-6 ####[facility] [id number] [place] [id number] [place] Chloride [Moles/Vol] 103 mmol/L Normal 98-107 [facility] Comment on above: Order Comment: Speci men Type: BLOOD SPECIMENOrdering Facility: [facility] Address: [address] [place], [place] [address] Performed By: #### 2 4362-6 ####[facility] [id number] [place] [address] [place] CO2 [Moles/Vol] 23 mmol/L Normal 22-[address] [facility] Comment on above: Order Comment: Speci men Type: BLOOD SPECIMENOrdering Facility: [facility] Address: [address] [place] [address] Performed By: #### 2 4362-6 ####[facility]IA [id number] [place] [address] [place] Creatinine [Mass/Vol] 1.09 mg/dL High 0.58-0.96 [facility] Comment on above: Order Comment: Speci men Type: BLOOD SPECIMENOrdering Facility: [facility] Address: [address] [place] [address] Performed By: #### 2 4362-6 ####[facility] [id number] [place] [address] [place] Creatinine and Glomerular filtration rate.predicted panel (S/P/Bld) 50 mL/min/1.73m??? Low >=[address] [facility] Comment on above: Order Comment: Speci men Type: BLOOD SPECIMENOrdering Facility: [facility] Address: [address] [place] [address] Result Comment: Isa mated Glomerular Filtration Rate [...] actual GFR. Performed By: #### 2 4362-6 ####[facility]IA [id number] [place] [address] [place] Glucose [Mass/Vol] 103 mg/dL High 74-99 [facility] Comment on above: Order Comment: Speci men Type: BLOOD SPECIMENOrdering Facility: [facility] Address: [address] [place] [id number] Result Comment: The [place] [employer] (ADA) provides guidance for cutoff [...] Standards of Medical Care in Diabetes 2016, [place] [employer]. Diabetes Care. 2016.39(Suppl 1). Performed By: #### 2 4362-6 ####[facility] [id number] [place] [address] [place] Phosphate [Mass/Vol] 2.9 mg/dL Normal 2.7-4.8 [facility] Comment on above: Order Comment: Speci men Type: BLOOD SPECIMENOrdering Facility: [facility] Address: [address] [place] [id number] Performed By: #### 2 4362-6 ####[facility]IA [id number] [place] [address] [place] Potassium [Moles/Vol] 4.5 mmol/L Normal 3.7-5.1 [facility] Comment on above: Order Comment: Speci men Type: BLOOD SPECIMENOrdering Facility: [facility] Address: [address] [place] [address] Performed By: #### 2 4362-6 ####[facility]IA [id number] [place] [address] [place] Sodium [Moles/Vol] 138 mmol/L Normal 136-144 [facility] Comment on above: Order Comment: Speci men Type: BLOOD SPECIMENOrdering Facility: [facility] Address: [address] [place] [address] Performed By: #### 2 4362-6 ####[facility] LABCLIA [id number] [place] [id number] [place] Urea nitrogen [Mass/Vol] 22 mg/dL High 7- [facility] Comment on above: Order Comment: Speci men Type: BLOOD SPECIMENOrdering Facility: [facility] Address: [address] [place] [address] Performed By: #### 2 4362-6 ####[facility] LABCL[facility] [id number] [place] [address] [place] THERAPY NTon 07-16-2024 THERAPY NT HNO ID: [id number] Author: SANTIAGO GUZMAN, OT/L Service: Occupational Therapy Author Type: Occupational Therapist Type: Therapy (PT/OT/Speech/Resp) Filed: 07/16/2024 15:10 Note Text: Occupational Therapy Treatment Summary SERVICE DATE: 07/16/2024 SERVICE TIME: 1415 to 1500 ROOM: [place] [address] OT 6 Clicks Score: 15 DISCHARGE RECOMMENDATIONS [...] (ADL), Muscle Weakness (generalized) TREATMENT INTERVENTIONS Self Assisted Management (17142) Timed Code Treatment (minutes): 45 Skilled Treatment [...] Sit to Stand, Standing Balance to Improve [place] with ADLs/Self-Care, Sitting Balance to Improve [place] with ADLs/Self-Care, Life Roles/Routines/Habits THERAPEUTIC SKILLS USED [...] Assistance Sit (more content not included)... Normal [facility] CBC panel Auto (Bld)on 07-15 Erythrocyte distribution width (RBC) [Ratio] 17.8 % High 11.5-15.[address] [facility] Comment on above: Order Comment: Speci men Type: BLOOD SPECIMEN [facility] Address: [address] [place] [address] Performed By: #### 2 4362-6 #### [facility] CLIA [id number] [address] [place] [address] [place] Hematocrit (Bld) [Volume fraction] 34.4 % Low 36.0-46.[address] [facility] Comment on above: Order Comment: Speci men Type: BLOOD SPECIMEN [facility] Address: [address] [place] [address] Performed By: #### 2 4362-6 #### [facility] CLIA [id number] [address] [place] [address] [place] Hemoglobin (Bld) [Mass/Vol] 10.7 g/dL Low 11.5-15.[address] [facility] Comment on above: Order Comment: Speci men Type: BLOOD SPECIMEN [facility] Address: [address] [place] [address] Performed By: #### 2 4362-6 #### [facility] CLIA [id number] [address] [place] [address] [place] MCH (RBC) [Entitic mass] 26.2 pg Normal 26.0-34.[address] [facility] Comment on above: Order Comment: Speci men Type: BLOOD SPECIMEN [facility] Address: [address] [place] [address] Performed By: #### 2 4362-6 #### [facility] CLIA [id number] [address] [place] [address] [place] MCHC (RBC) [Mass/Vol] 31.1 g/dL Normal 30.5-36.0 [facility] Comment on above: Order Comment: Speci men Type: BLOOD SPECIMEN [facility] Address: [address] [place] [address] Performed By: #### 2 4362-6 #### [facility] CLIA [id number] [address] [place] [address] [place] MCV (RBC) [Entitic vol] 84.1 fL Normal 80.0-100.0 [facility] Comment on above: Order Comment: Speci men Type: BLOOD SPECIMEN [facility] Address: [address] [place] [address] Performed By: #### 2 4362-6 #### [facility] CLIA [id number] [address] [place] [address] [place] Nucleated RBC (Bld) [#/Vol] 10*3/uL Normal <0.[address] [facility] Comment on above: Order Comment: Speci men Type: BLOOD SPECIMEN [facility] Address: [address] [place] [address] Performed By: #### 2 4362-6 #### [facility] CLIA [id number] [address] [place] [address] [place] Platelet mean volume (Bld) [Entitic vol] 10.1 fL Normal 9.0-12.[address] [facility] Comment on above: Order Comment: Speci men Type: BLOOD SPECIMEN [facility] Address: [address] [place] [address] Performed By: #### 2 4362-6 #### [facility] CLIA [id number] [address] [place] [address] [place] Platelets (Bld) [#/Vol] 386 10*3/uL Normal 150-[address] [facility] Comment on above: Order Comment: Speci men Type: BLOOD SPECIMEN [facility] Address: [address] [place] [address] Performed By: #### 2 4362-6 #### [facility] CLIA [id number] [address] [place] [address] [place] RBC (Bld) [#/Vol] 4.09 10*6/uL Normal 3.90-5.20 [facility] Comment on above: Order Comment: Speci men Type: BLOOD SPECIMEN [facility] Address: [address] [place] [address] Performed By: #### 2 4362-6 #### [facility] CLIA [id number] [address] [place] [address] [place] WBC (Bld) [#/Vol] 10.20 10*3/uL Normal 3.70-11.00 [facility] Comment on above: Order Comment: Speci men Type: BLOOD SPECIMEN [facility] Address: [address] [place] [address] Performed By: #### 2 4362-6 #### [facility] CLIA [id number] [address] [place] [address] [place] Renal function 2000 panelon 07-15-2024 Albumin [Mass/Vol] 3.5 g/dL Low 3.9-4.9 [facility] Comment on above: Order Comment: Speci men Type: BLOOD SPECIMENOrdering Facility: [facility] Address: [address] [place], [place] [address] Performed By: #### 2 4362-6 ####[facility] LAB[facility] [id number] [place] [address] [place] Anion gap [Moles/Vol] 12 mmol/L Normal 8-15 [facility] Comment on above: Order Comment: Speci men Type: BLOOD SPECIMENOrdering Facility: [facility] Address: [address] [place] [address] Performed By: #### 2 4362-6 ####[facility] [id number] [place] [address] [place] Calcium [Mass/Vol] 9.1 mg/dL Normal 8.5-10.2 [facility] Comment on above: Order Comment: Speci men Type: BLOOD SPECIMENOrdering Facility: [facility] Address: [address] [place] [address] Performed By: #### 2 4362-6 ####[facility] [id number] [place] [address] [place] Chloride [Moles/Vol] 101 mmol/L Normal 98-107 [facility] Comment on above: Order Comment: Speci men Type: BLOOD SPECIMENOrdering Facility: [facility] Address: [address] [place], [place] [address] Performed By: #### 2 4362-6 ####[facility] [id number] [place] [id number] [place] CO2 [Moles/Vol] 24 mmol/L Normal 22-[address] [facility] Comment on above: Order Comment: Speci men Type: BLOOD SPECIMENOrdering Facility: [facility] Address: [address] [place], [place] [address] Performed By: #### 2 4362-6 ####[facility]CLIA [id number] [place] [id number] [place] Creatinine [Mass/Vol] 0.96 mg/dL Normal 0.58-0.96 [facility] Comment on above: Order Comment: Rhina mason Type: BLOOD SPECIMENOrdering Facility: [facility] Address: [address] [place] [address] Performed By: #### 2 4362-6 ####[facility]CL[facility] [id number] [place] [address] [place] Creatinine and Glomerular filtration rate.predicted panel (S/P/Bld) 58 mL/min/1.73m??? Low >=[address] [facility] Comment on above: Order Comment: Rhina mason Type: BLOOD SPECIMENOrdering Facility: [facility] Address: [address] [place] [address] Result Comment: Isa mated Glomerular Filtration Rate [...] actual GFR. Performed By: #### 2 4362-6 ####[facility] [id number] [place] [address] [place] Glucose [Mass/Vol] 93 mg/dL Normal 74-99 [facility] Comment on above: Order Comment: Rhina mason Type: BLOOD SPECIMENOrdering Facility: [facility] Address: [address] [place] [address] Result Comment: The [place] [employer] (ADA) provides guidance for cutoff [...] Standards of Medical Care in Diabetes 2016, [place] [employer]. Diabetes Care. 2016.39(Suppl 1). Performed By: #### 2 4362-6 ####[facility] [id number] [address] [address] [place] Phosphate [Mass/Vol] 3.1 mg/dL Normal 2.7-4.8 [facility] Comment on above: Order Comment: Speci men Type: BLOOD SPECIMENOrdering Facility: [facility] Address: [address] [place] [address] Performed By: #### 2 4362-6 ####[facility] [id number] [place] [address] [place] Potassium [Moles/Vol] 4.3 mmol/L Normal 3.7-5.1 [facility] Comment on above: Order Comment: Speci men Type: BLOOD SPECIMENOrdering Facility: [facility] Address: [address] [place] [address] Performed By: #### 2 4362-6 ####[facility] [id number] [place] [address] [place] Sodium [Moles/Vol] 137 mmol/L Normal 136-144 [facility] Comment on above: Order Comment: Speci men Type: BLOOD SPECIMENOrdering Facility: [facility] Address: [address] [place] [address] Performed By: #### 2 4362-6 ####[facility] LABCLIA [id number] [place] [id number] [place] Urea nitrogen [Mass/Vol] 19 mg/dL Normal 7-[address] [facility] Comment on above: Order Comment: Speci men Type: BLOOD SPECIMENOrdering Facility: [facility] Address: [address] [place], [place] [address] Performed By: #### 2 4362-6 ####[facility] [id number] [place] [address] [place] CBC panel Auto (Bld)on 07-14 Erythrocyte distribution width (RBC) [Ratio] 17.9 % High 11.5-15.[address] [facility] Comment on above: Order Comment: Speci men Type: BLOOD SPECIMEN [facility] Address: [address] [place] [address] Performed By: #### 2 4362-6 #### [facility] CLIA [id number] [address] [place] [address] [place] Hematocrit (Bld) [Volume fraction] 33.8 % Low 36.0-46.[address] [facility] Comment on above: Order Comment: Speci men Type: BLOOD SPECIMEN [facility] Address: [address] [place] [address] Performed By: #### 2 4362-6 #### [facility] CLIA [id number] [address] [place] [address] [place] Hemoglobin (Bld) [Mass/Vol] 10.7 g/dL Low 11.5-15.[address] [facility] Comment on above: Order Comment: Speci men Type: BLOOD SPECIMEN [facility] Address: [address] [place] [address] Performed By: #### 2 4362-6 #### [facility] CLIA [id number] [address] [place] [address] [place] MCH (RBC) [Entitic mass] 26.4 pg Normal 26.0-34.[address] [facility] Comment on above: Order Comment: Speci men Type: BLOOD SPECIMEN Ordering Facility: [facility] Address: [address] [place] [address] Performed By: #### 2 4362-6 #### [facility] CLIA [id number] [address] [id number] [address] [place] [facility]CH[facility] (RBC) [Mass/Vol] 31.7 g/dL Normal 30.5-36.0 [facility] Comment on above: Order Comment: Speci men Type: BLOOD SPECIMEN Ordering Facility: [facility] Address: [address] [place] [address] Performed By: #### 2 4362-6 #### [facility] CLIA [id number] [address] [place] [address] [place] MCV (RBC) [Entitic vol] 83.5 fL Normal 80.0-100.0 [facility] Comment on above: Order Comment: Speci men Type: BLOOD SPECIMEN Ordering Facility: [facility] Address: [address] [place] [address] Performed By: #### 2 4362-6 #### [facility] CLIA [id number] [address] [place] [address] [place] Nucleated RBC (Bld) [#/Vol] 10*3/uL Normal <0.[address] [facility] Comment on above: Order Comment: Speci men Type: BLOOD SPECIMEN Ordering Facility: [facility] Address: [address] [place] [address] Performed By: #### 2 4362-6 #### [facility] CLIA [id number] [address] [place] [address] [place] Platelet mean volume (Bld) [Entitic vol] 10.3 fL Normal 9.0-12.[address] [facility] Comment on above: Order Comment: Speci men Type: BLOOD SPECIMEN Ordering Facility: [facility] Address: [address] [place] [address] Performed By: #### 2 4362-6 #### [facility] CLIA [id number] [address] [place] [address] [place] Platelets (Bld) [#/Vol] 345 10*3/uL Normal 150-[address] [facility] Comment on above: Order Comment: Speci men Type: BLOOD SPECIMEN Ordering Facility: [facility] Address: [address] [place] [address] Performed By: #### 2 4362-6 #### [facility] CLIA [id number] [address] [place] [address] [place] RBC (Bld) [#/Vol] 4.05 10*6/uL Normal 3.90-5.20 [facility] Comment on above: Order Comment: Speci men Type: BLOOD SPECIMEN Ordering Facility: [facility] Address: [address] [place] [address] Performed By: #### 2 4362-6 #### [facility] CLIA [id number] [address] [place] [address] [place] WBC (Bld) [#/Vol] 11.07 10*3/uL High 3.70-11.00 [facility] Comment on above: Order Comment: Speci men Type: BLOOD SPECIMEN Ordering Facility: [facility] Address: [address] [place] [address] Performed By: #### 2 4362-6 #### [facility] CLIA [id number] [address] [place] [address] [place] Renal function 2000 panelon 07-14-2024 Albumin [Mass/Vol] 3.5 g/dL Low 3.9-4.9 [facility] Comment on above: Order Comment: Speci men Type: BLOOD SPECIMEN Ordering Facility: [facility] Address: [address] [place] [address] Performed By: #### 2 4362-6 #### [facility] CLIA [id number] [address] [place] [address] [place] Anion gap [Moles/Vol] 14 mmol/L Normal 8-15 [facility] Comment on above: Order Comment: Speci men Type: BLOOD SPECIMEN Ordering Facility: [facility] Address: [address] [place] [address] Performed By: #### 2 4362-6 #### [facility] CLIA [id number] [address] [place] [address] [place] Calcium [Mass/Vol] 9.1 mg/dL Normal 8.5-10.2 [facility] Comment on above: Order Comment: Speci men Type: BLOOD SPECIMEN Ordering Facility: [facility] Address: [address] [place] [address] Performed By: #### 2 4362-6 #### [facility] CLIA [id number] [address] [place] [address] [place] Chloride [Moles/Vol] 98 mmol/L Normal 98-107 [facility] Comment on above: Order Comment: Speci men Type: BLOOD SPECIMEN Ordering Facility: [facility] Address: [address] [place] [address] Performed By: #### 2 4362-6 #### [facility] CLIA [id number] [address] [place] [address] [place] CO2 [Moles/Vol] 22 mmol/L Normal 22-[address] [facility] Comment on above: Order Comment: Speci men Type: BLOOD SPECIMEN Ordering Facility: [facility] Address: [address] [place] [address] Performed By: #### 2 4362-6 #### [facility] CLIA [id number] [address] [place] [address] [place] Creatinine [Mass/Vol] 1.01 mg/dL High 0.58-0.96 [facility] Comment on above: Order Comment: Speci men Type: BLOOD SPECIMEN Ordering Facility: [facility] Address: [address] [place] [address] Performed By: #### 2 4362-6 #### [facility] CLIA [id number] [address] [place] [address] [place] Creatinine and Glomerular filtration rate.predicted panel (S/P/Bld) 55 mL/min/1.73m??? Low >=[address] [facility] Comment on above: Order Comment: Rhina mason Type: BLOOD SPECIMEN Ordering Facility: [facility] Address: [address] [place] [address] Result Comment: Isa mated Glomerular Filtration Rate [...] GFR. Performed By: #### 2 4362-6 #### [facility] CLIA [id number] [address] [place] [address] [place] Glucose [Mass/Vol] 131 mg/dL High 74-99 [facility] Comment on above: Order Comment: Rhina mason Type: BLOOD SPECIMEN Ordering Facility: [facility] Address: [address] [place] [address] Result Comment: The [place] [employer] Association (ADA) provides guidance for cutoff [...] Standards of Medical Care in Diabetes 2016, [place] [employer]. Diabetes Care. 2016.39(Suppl 1). Performed By: #### 2 4362-6 #### [facility] CLIA [id number] [address] [place] [address] [place] Phosphate [Mass/Vol] 3.5 mg/dL Normal 2.7-4.8 [facility] Comment on above: Order Comment: Rhina mason Type: BLOOD SPECIMEN Ordering Facility: [facility] Address: [address] [place] [address] Performed By: #### 2 4362-6 #### [facility] CLIA [id number] [address] [place] [address] [place] Potassium [Moles/Vol] 4.1 mmol/L Normal 3.7-5.1 [facility] Comment on above: Order Comment: Speci men Type: BLOOD SPECIMEN Ordering Facility: [facility] Address: [address] [place] [address] Performed By: #### 2 4362-6 #### [facility] CLIA [id number] [address] [place] [address] [place] Sodium [Moles/Vol] 134 mmol/L Low 136-144 [facility] Comment on above: Order Comment: Speci men Type: BLOOD SPECIMEN Ordering Facility: [facility] Address: [address] [place] [address] Performed By: #### 2 4362-6 #### [facility] CLIA [id number] [address] [place] [address] [place] Urea nitrogen [Mass/Vol] 19 mg/dL Normal 7-[address] [facility] Comment on above: Order Comment: Speci men Type: BLOOD SPECIMEN Ordering Facility: [facility] Address: [address] [place] [address] Performed By: #### 2 4362-6 #### [facility] CLIA [id number] [address] [place] [address] [place] ANES POSTPROC EVALon 024 ANES POSTPROC EVAL HNO ID: [id number] Author: SIERRA FALK MD Service: ? Author Type: Anesthesiologist Type: Anesthesia Postprocedure Evaluation Filed: 07/13/2024 15:57 Note Text: POST ANESTHESIA EVALUATION NOTE : 1940 Procedure Summary Date: 07/13/24 Room / Location: [place] [address] / [facility] Anesthesia Start: 1222 Anesthesia Stop: 1337 Procedure: [...] July 13, 2024 TIME: 3:57 PM CSN: [id number] Normal [facility] ANES PRE-OPon 07-13-2024 ANES PRE-OP HNO ID: [id number] Author: SIERRA FALK MD Service: ? Author Type: Anesthesiologist Type: Anesthesia Preprocedure Evaluation Filed: 07/13/2024 09:44 Note Text: ANESTHESIOLOGY DAY OF SURGERY NOTE : 1940 Procedure Information Date/Time: 07/13/24 1404 Procedure: ASPIRATION VITREOUS, CHOROIDAL FLUID, PARS PLANA APPROACH (Right: Eye) Location: [place] [address] / [facility] Surgeons: Savana Lopez MD Estimated body mass index is 26.11 kg/m? as calculated from the following: Height as of 06/11/24: 162.6 cm (5' 4"). Weight as of [...] 0.5 tablets by mouth every 12 hours. afanuxjjsch-thqyppaem-c ilanter (TRELEGY ELLIPTA) 100-62.5-25 mcg inhalation powder Inhale 1 Puff as instructed once daily. acetaminophen (TYLENOL) 325 mg tablet Take 2 tablets by mouth every 6 hours as needed for pain. ascorbic acid (more content not included)... Normal [facility] CASE MANAGEMon 07-13-2024 CASE MANAGEM HNO ID: [id number] Author: REBECA BELLE LSW Service: ? Author Type: Windows Support Engineer Type: Care Mgt Progress Note Filed: 07/13/2024 16:25 Note Text: CARE MANAGEMENT WEEKEND PLANNING NOTE NO WEEKEND DISCHARGE Disposition: Custodial Facility Anticipated Discharge Date: TBD CM followed up with pt's daughter for SNF choices. Pt is currently in the OR- unable to send referrals in careport or complete "edit note" side bar. 1)[facility] 2)[facility] 3)[facility] 4)[facility] 5)[facility] Care Will need accepting SNF and precert prior to dc. UPDATE 4:24pm: Referrals sent; awaiting response. Weekend Preschool Director Pager #: Please see Treatment Team for Care Management Weekend/Holiday coverage. SIGNATURE: SHAQUILLE Nuñez PATIENT NAME: Mel Castillo DATE: July 13, 2024 TIME: 3:09 PM PAGER/CONTACT #: [phone] [facility] CBC panel Auto (Bld)on 07-13 Erythrocyte distribution width (RBC) [Ratio] 17.6 % High 11.5-15.[address] [facility] Comment on above: Order Comment: Speci men Type: BLOOD SPECIMENOrdering Facility: [facility] Address: [address] [place] [address] Performed By: #### 5 8410-2 ####[facility] [id number] [place] [address] [place] Hematocrit (Bld) [Volume fraction] 34.5 % Low 36.0-46.[address] [facility] Comment on above: Order Comment: Speci men Type: BLOOD SPECIMENOrdering Facility: [facility] Address: [address] [place] [address] Performed By: #### 5 8410-2 ####[facility] [id number] [place] [address] [place] Hemoglobin (Bld) [Mass/Vol] 10.8 g/dL Low 11.5-15.[address] [facility] Comment on above: Order Comment: Speci men Type: BLOOD SPECIMENOrdering Facility: [facility] Address: [address] [place] [address] Performed By: #### 5 8410-2 ####[facility] [id number] [place] [address] [place] MCH (RBC) [Entitic mass] 26.1 pg Normal 26.0-34.[address] [facility] Comment on above: Order Comment: Speci men Type: BLOOD SPECIMENOrdering Facility: [facility] Address: [address] [place] [address] Performed By: #### 5 8410-2 ####[facility] [id number] [place] [address] [place] MCHC (RBC) [Mass/Vol] 31.3 g/dL Normal 30.5-36.0 [facility] Comment on above: Order Comment: Speci men Type: BLOOD SPECIMENOrdering Facility: [facility] Address: [address] [place] [address] Performed By: #### 5 8410-2 ####[facility] [id number] [place] [address] [place] MCV (RBC) [Entitic vol] 83.3 fL Normal 80.0-100.0 [facility] Comment on above: Order Comment: Speci men Type: BLOOD SPECIMENOrdering Facility: [facility] Address: [address] [place] [address] Performed By: #### 5 8410-2 ####[facility] [id number] [place] [address] [place] Nucleated RBC (Bld) [#/Vol] 10*3/uL Normal <0.[address] [facility] Comment on above: Order Comment: Speci men Type: BLOOD SPECIMENOrdering Facility: [facility] Address: [address] [place] [address] Performed By: #### 5 8410-2 ####[facility] [id number] [place] [address] [place] Platelet mean volume (Bld) [Entitic vol] 9.7 fL Normal 9.0-12.[address] [facility] Comment on above: Order Comment: Speci men Type: BLOOD SPECIMENOrdering Facility: [facility] Address: [address] [place] [address] Performed By: #### 5 8410-2 ####[facility] [id number] [place] [address] [place] Platelets (Bld) [#/Vol] 334 10*3/uL Normal 150-[address] [facility] Comment on above: Order Comment: Speci men Type: BLOOD SPECIMENOrdering Facility: [facility] Address: [address] [place] [address] Performed By: #### 5 8410-2 ####[facility] [id number] [place] [address] [place] RBC (Bld) [#/Vol] 4.14 10*6/uL Normal 3.90-5.20 [facility] Comment on above: Order Comment: Speci men Type: BLOOD SPECIMENOrdering Facility: [facility] Address: [address] [place] [address] Performed By: #### 5 8410-2 ####[facility] [id number] [place] [address] [place] WBC (Bld) [#/Vol] 10.74 10*3/uL Normal 3.70-11.00 [facility] Comment on above: Order Comment: Speci men Type: BLOOD SPECIMENOrdering Facility: [facility] Address: [address] [place] [address] Performed By: #### 5 8410-2 ####[facility] [id number] [place] [id number] [place] ECHO WITH AGITATED SALINE CO NTRASTon 07-13-2024 ECHO WITH AGITATED SALINE CONTRAST Echocardiography Report: Transthoracic Echo [facility] Bedside Date of service: 07/13/2024 3:54:27 PM CLERK Ordering physician: FELICIA LEVY Indication: Limited KYLE [...] * * Final * * * CC [employer] [facility] : [id number] ISUID Normal [facility] NUTRITIONon 07-13-2024 NUTRITION HNO ID: [id number] Author: PAWAN PRESLEY DTR Service: Nutrition Therapy Author Type: Leasing Agent Type: Nutrition Filed: 07/13/2024 11:50 Note Text: NUTRITION THERAPY BINDING DYER NOTE SERVICE DATE: 07/13/2024 SERVICE TIME: 1045 [...] intake over: 5 days (As noted per [facility]. Kcal noted at an average of 50% per day of meals served.) Appetite: Unable to determine GI Symptoms: Unable to determine at this time Anthropometrics: There is no height or weight on file to calculate BMI. Food Preferences: Add nutritional supplements Allergies: No food allergies noted per Epic. MNT Billing: $ Routine Care : 1-15 minutes SIGNATURE: Pawan Presley DTR PATIENT NAME: Mel Castillo DATE: July 13, 2024 TIME: 11:49 AM Normal [facility] OPERATIVE NOon 07-13-2024 OPERATIVE NO HNO ID: [id number] Author: SAVANA LOPEZ MD Service: Ophthalmology Author Type: Physician Type: Operative Report Filed: 07/13/2024 13:32 Note Text: [place] [address] [place] [facility] OPERATIVE REPORT LOG ID: [id number] Surgery/Procedure Date: 07/13/2024 Incision/Procedure Start Time: 12:43 PM Incision Close/Procedure End Time: 1:32 PM NAME: Mel Pop [facility] #: [id number] SURGEON(S) AND PRINTING ROLLER POLISHER(S): Surgeons and Role: * Savana Lopez MD [...] Surgery AND Ocular Inflammatory Diseases [facility] Eye [place] Normal [facility] Renal function 2000 panelon 07-13-2024 Albumin [Mass/Vol] 3.5 g/dL Low 3.9-4.9 [facility] Comment on above: Order Comment: Speci men Type: BLOOD SPECIMENOrdering Facility: [facility] Address: [address] [place] [address] Performed By: #### 2 4362-6 ####[facility]IA [id number] [place] [address] [place] Anion gap [Moles/Vol] 10 mmol/L Normal 8-15 [facility] Comment on above: Order Comment: Speci men Type: BLOOD SPECIMENOrdering Facility: [facility] Address: [address] [place] [address] Performed By: #### 2 4362-6 ####[facility]IA [id number] [place] [address] [place] Calcium [Mass/Vol] 9.3 mg/dL Normal 8.5-10.2 [facility] Comment on above: Order Comment: Speci men Type: BLOOD SPECIMENOrdering Facility: [facility] Address: [address] [place] [address] Performed By: #### 2 4362-6 ####[facility]IA [id number] [facility] [address] [place] Chloride [Moles/Vol] 100 mmol/L Normal 98-107 [facility] Comment on above: Order Comment: Speci men Type: BLOOD SPECIMENOrdering Facility: [facility] Address: [address] [place] [address] Performed By: #### 2 4362-6 ####[facility]CLIA [id number] [facility] [address] [place] CO2 [Moles/Vol] 27 mmol/L Normal 22-[address] [facility] Comment on above: Order Comment: Speci men Type: BLOOD SPECIMENOrdering Facility: [facility] Address: [address] [place] [address] Performed By: #### 2 4362-6 ####[facility]IA [id number] [place] [address] [place] Creatinine [Mass/Vol] 0.92 mg/dL Normal 0.58-0.96 [facility] Comment on above: Order Comment: Speci men Type: BLOOD SPECIMENOrdering Facility: [facility] Address: [address] [place] [address] Performed By: #### 2 4362-6 ####[facility]IA [id number] [address] STATES OF [facility] Creatinine and Glomerular filtration rate.predicted panel (S/P/Bld) 62 mL/min/1.73m??? Normal >=[address] [facility] Comment on above: Order Comment: Speci men Type: BLOOD SPECIMENOrdering Facility: [facility] Address: [address] [place] [address] Result Comment: Isa mated Glomerular Filtration Rate [...] actual GFR. Performed By: #### 2 4362-6 ####[facility]CLIA [id number] [place] [address] [place] Glucose [Mass/Vol] 103 mg/dL High 74-99 [facility] Comment on above: Order Comment: Speci men Type: BLOOD SPECIMENOrdering Facility: [facility] Address: [address], [place] [address] Result Comment: The [place] Diabetes Association (ADA) provides guidance for cutoff [...] Standards of Medical Care in Diabetes 2016, [place] [employer]. Diabetes Care. 2016.39(Suppl 1). Performed By: #### 2 4362-6 ####[facility] [id number] [place] [address] [place] Phosphate [Mass/Vol] 3.5 mg/dL Normal 2.7-4.8 [facility] Comment on above: Order Comment: Speci men Type: BLOOD SPECIMENOrdering Facility: [facility] Address: [address] [place] [address] Performed By: #### 2 4362-6 ####[facility]IA [id number] [place] [address] [place] Potassium [Moles/Vol] 4.2 mmol/L Normal 3.7-5.1 [facility] Comment on above: Order Comment: Speci men Type: BLOOD SPECIMENOrdering Facility: [facility] Address: [address] [place] [address] Performed By: #### 2 4362-6 ####[facility]IA [id number] [place] [address] [place] Sodium [Moles/Vol] 137 mmol/L Normal 136-144 [facility] Comment on above: Order Comment: Speci men Type: BLOOD SPECIMENOrdering Facility: [facility] Address: [address] [place] [address] Performed By: #### 2 4362-6 ####[facility] LABCLIA [id number] [address] [address] [place] Urea nitrogen [Mass/Vol] 12 mg/dL Normal 7-[address] [facility] Comment on above: Order Comment: Speci men Type: BLOOD SPECIMENOrdering Facility: [facility] Address: [address] [place] [address] Performed By: #### 2 4362-6 ####[facility]CLIA [id number] [place] [address] [place] BSCAN OD (RIGHT EYE)on 07-12 [facility] Radiology Study observation (narrative) [facility] CBC panel Auto (Bld)on 07-12 Erythrocyte distribution width (RBC) [Ratio] 17.8 % High 11.5-15.[address] [facility] Comment on above: Order Comment: Speci men Type: BLOOD SPECIMENOrdering Facility: [facility] Address: [address] [place] [address] Performed By: #### 5 8410-2 ####[facility]CLIA [id number] [place] [address] [place] Hematocrit (Bld) [Volume fraction] 34.7 % Low 36.0-46.[address] [facility] Comment on above: Order Comment: Speci men Type: BLOOD SPECIMENOrdering Facility: [facility] Address: [address] [place] [address] Performed By: #### 5 8410-2 ####[facility] LABCLIA [id number] [place] [address] [place] Hemoglobin (Bld) [Mass/Vol] 10.6 g/dL Low 11.5-15.[address] [facility] Comment on above: Order Comment: Speci men Type: BLOOD SPECIMENOrdering Facility: [facility] Address: [address] [place] [address] Performed By: #### 5 8410-2 ####[facility] LABCLIA [id number] [place] [address] [place] MCH (RBC) [Entitic mass] 26.4 pg Normal 26.0-34.[address] [facility] Comment on above: Order Comment: Speci men Type: BLOOD SPECIMENOrdering Facility: [facility] Address: [address] [place] [address] Performed By: #### 5 8410-2 ####[facility]IA [id number] [place] [address] [place] MCHC (RBC) [Mass/Vol] 30.5 g/dL Normal 30.5-36.0 [facility] Comment on above: Order Comment: Speci men Type: BLOOD SPECIMENOrdering Facility: [facility] Address: [address] [place] [address] Performed By: #### 5 8410-2 ####[facility] [id number] [place] [address] [place] MCV (RBC) [Entitic vol] 86.3 fL Normal 80.0-100.0 [facility] Comment on above: Order Comment: Speci men Type: BLOOD SPECIMENOrdering Facility: [facility] Address: [address] [place] [address] Performed By: #### 5 8410-2 ####[facility] [id number] [place] [address] [place] Nucleated RBC (Bld) [#/Vol] 10*3/uL Normal <0.[address] [facility] Comment on above: Order Comment: Speci men Type: BLOOD SPECIMENOrdering Facility: [facility] Address: [address] [place] [address] Performed By: #### 5 8410-2 ####[facility]IA [id number] [place] [address] [place] Platelet mean volume (Bld) [Entitic vol] 9.9 fL Normal 9.0-12.[address] [facility] Comment on above: Order Comment: Speci men Type: BLOOD SPECIMENOrdering Facility: [facility] Address: [address] [place] [address] Performed By: #### 5 8410-2 ####[facility] LABCLIA [id number] [place] [address] [place] Platelets (Bld) [#/Vol] 301 10*3/uL Normal 150-[address] [facility] Comment on above: Order Comment: Speci men Type: BLOOD SPECIMENOrdering Facility: [facility] Address: [address] [place] [address] Performed By: #### 5 8410-2 ####[facility] LABCLIA [id number] [place] [address] [place] RBC (Bld) [#/Vol] 4.02 10*6/uL Normal 3.90-5.20 [facility] Comment on above: Order Comment: Speci men Type: BLOOD SPECIMENOrdering Facility: [facility] Address: [address] [place] [address] Performed By: #### 5 8410-2 ####[facility] [id number] [place] [address] [place] WBC (Bld) [#/Vol] 10.07 10*3/uL Normal 3.70-11.00 [facility] Comment on above: Order Comment: Speci men Type: BLOOD SPECIMENOrdering Facility: [facility] Address: [address] [place] [address] Performed By: #### 5 8410-2 ####[facility] [id number] [place] [id number] [place] PT EDon 07-12-2024 PT ED HNO ID: [id number] Author: GISSELL POPE RPh Service: Pharmacy Author [...] pharmacy for inpatient anticoagulant education. Gissell Pope [facility] Normal [facility] Renal function 2000 panelon 07-12-2024 Albumin [Mass/Vol] 3.4 g/dL Low 3.9-4.9 [facility] Comment on above: Order Comment: Speci isabella Type: BLOOD SPECIMENOrdering Facility: [facility] Address: [address] [place] [address] Performed By: #### 2 4362-6 ####[facility] [id number] [place] [address] [place] Anion gap [Moles/Vol] 14 mmol/L Normal 8-15 [facility] Comment on above: Order Comment: Rhina mason Type: BLOOD SPECIMENOrdering Facility: [facility] Address: [address] [place] [address] Performed By: #### 2 4362-6 ####[facility] [id number] [place] [id number] [place] Calcium [Mass/Vol] 9.3 mg/dL Normal 8.5-10.2 [facility] Comment on above: Order Comment: Samiri isabella Type: BLOOD SPECIMENOrdering Facility: [facility] Address: [address] [place] [address] Performed By: #### 2 4362-6 ####[facility] [id number] [place] [address] [place] Chloride [Moles/Vol] 101 mmol/L Normal 98-107 [facility] Comment on above: Order Comment: Speci men Type: BLOOD SPECIMENOrdering Facility: [facility] Address: [address] [place] [address] Performed By: #### 2 4362-6 ####[facility] [id number] [place] [address] [place] CO2 [Moles/Vol] 21 mmol/L Low 22-[address] [facility] Comment on above: Order Comment: Speci men Type: BLOOD SPECIMENOrdering Facility: [facility] Address: [address] [place] [address] Performed By: #### 2 4362-6 ####[facility] [id number] [place] [address] [place] Creatinine [Mass/Vol] 0.81 mg/dL Normal 0.58-0.96 [facility] Comment on above: Order Comment: Speci men Type: BLOOD SPECIMENOrdering Facility: [facility] Address: [address] [place] [address] Performed By: #### 2 4362-6 ####[facility] LABIA [id number] [address] [place] Creatinine and Glomerular filtration rate.predicted panel (S/P/Bld) 72 mL/min/1.73m??? Normal >=[address] [facility] Comment on above: Order Comment: Speci men Type: BLOOD SPECIMENOrdering Facility: [facility] Address: [address] [place] [address] Result Comment: Isa mated Glomerular Filtration Rate [...] actual GFR. Performed By: #### 2 4362-6 ####[facility] LABIA [id number] [place] [address] [place] Glucose [Mass/Vol] 100 mg/dL High 74-99 [facility] Comment on above: Order Comment: Speci men Type: BLOOD SPECIMENOrdering Facility: [facility] Address: [address] [place] [address] Result Comment: The [place] [employer] Association (ADA) provides guidance for cutoff [...] Standards of Medical Care in Diabetes 2016, [place] [employer]. Diabetes Care. 2016.39(Suppl 1). Performed By: #### 2 4362-6 ####[facility] [id number] [place] [address] [place] Phosphate [Mass/Vol] 2.7 mg/dL Normal 2.7-4.8 [facility] Comment on above: Order Comment: Speci men Type: BLOOD SPECIMENOrdering Facility: [facility] Address: [address] [place] [address] Performed By: #### 2 4362-6 ####[facility] [id number] [place] [address] [place] Potassium [Moles/Vol] 4.0 mmol/L Normal 3.7-5.1 [facility] Comment on above: Order Comment: Speci men Type: BLOOD SPECIMENOrdering Facility: [facility] Address: [address] [place] [id number] Performed By: #### 2 4362-6 ####[facility]CLIA [id number] [place] [id number] [place] Sodium [Moles/Vol] 136 mmol/L Normal 136-144 [facility] Comment on above: Order Comment: Speci men Type: BLOOD SPECIMENOrdering Facility: [facility] Address: [address] [place] [address] Performed By: #### 2 4362-6 ####[facility]CLIA [id number] [place] [address] [place] Urea nitrogen [Mass/Vol] 12 mg/dL Normal 7-[address] [facility] Comment on above: Order Comment: Speci men Type: BLOOD SPECIMENOrdering Facility: [facility] Address: [address] [place] [address] Performed By: #### 2 4362-6 ####[facility] LABIA [id number] [place] [address] [place] Right eye Photo documentatio non 07-12-2024 [facility] Radiology Study observation (narrative) Amarjit chaudhry [facility] THERAPY NTon 07-12-2024 THERAPY NT HNO ID: [id number] Author: RYANN GUZMÁN OT/[place] Service: Occupational Therapy Author Type: Occupational Therapist Type: Therapy (PT/OT/Speech/Resp) Filed: 07/12/2024 12:26 Note Text: OCCUPATIONAL THERAPY MISSED VISIT SERVICE DATE: 07/12/2024 SERVICE TIME: 1226 ROOM: [place] [address] ([facility] - OPHTHALMOLOGY) Patient not seen due to Test / Procedure. SIGNATURE: JUANY Willett PATIENT NAME: Mel Castillo DATE: July 12, 2024 TIME: 12:26 PM Normal [facility] CBC panel Auto (Bld)on 07-11 Erythrocyte distribution width (RBC) [Ratio] 17.6 % High 11.5-15.[address] [facility] Comment on above: Order Comment: Speci men Type: BLOOD SPECIMEN [facility] Address: [address] [place] [address] Performed By: #### 5 8410-2 #### [facility] CLIA [id number] [address] [place] [address] [place] Hematocrit (Bld) [Volume fraction] 32.3 % Low 36.0-46.[address] [facility] Comment on above: Order Comment: Speci men Type: BLOOD SPECIMEN [facility] Address: [address] [place] [address] Performed By: #### 5 8410-2 #### [facility] CLIA [id number] [address] [place] [address] [place] Hemoglobin (Bld) [Mass/Vol] 10.5 g/dL Low 11.5-15.[address] [facility] Comment on above: Order Comment: Speci men Type: BLOOD SPECIMEN [facility] Address: [address] [place] [address] Performed By: #### 5 8410-2 #### [facility] CLIA [id number] [address] [place] [address] [place] MCH (RBC) [Entitic mass] 27.0 pg Normal 26.0-34.[address] [facility] Comment on above: Order Comment: Speci men Type: BLOOD SPECIMEN [facility] Address: [address] [place] [address] Performed By: #### 5 8410-2 #### [facility] CLIA [id number] [address] [place] [address] [place] MCHC (RBC) [Mass/Vol] 32.5 g/dL Normal 30.5-36.0 [facility] Comment on above: Order Comment: Speci men Type: BLOOD SPECIMEN [facility] Address: [address] [place] [address] Performed By: #### 5 8410-2 #### [facility] CLIA [id number] [address] [place] [address] [place] MCV (RBC) [Entitic vol] 83.0 fL Normal 80.0-100.0 [facility] Comment on above: Order Comment: Speci men Type: BLOOD SPECIMEN [facility] Address: [address] [place] [address] Performed By: #### 5 8410-2 #### [facility] CLIA [id number] [address] [place] [address] [place] Nucleated RBC (Bld) [#/Vol] 10*3/uL Normal <0.[address] [facility] Comment on above: Order Comment: Speci men Type: BLOOD SPECIMEN [facility] Address: [address] [place] [address] Performed By: #### 5 8410-2 #### [facility] CLIA [id number] [address] [place] [address] [place] Platelet mean volume (Bld) [Entitic vol] 9.9 fL Normal 9.0-12.[address] [facility] Comment on above: Order Comment: Speci men Type: BLOOD SPECIMEN [facility] Address: [address] [place] [address] Performed By: #### 5 8410-2 #### [facility] CLIA [id number] [address] [place] [address] [place] Platelets (Bld) [#/Vol] 289 10*3/uL Normal 150-[address] [facility] Comment on above: Order Comment: Speci men Type: BLOOD SPECIMEN [facility] Address: [address] [place] [address] Performed By: #### 5 8410-2 #### [facility] CLIA [id number] [address] [place] [address] [place] RBC (Bld) [#/Vol] 3.89 10*6/uL Low 3.90-5.20 [facility] Comment on above: Order Comment: Speci men Type: BLOOD SPECIMEN [facility] Address: [address] [place] [address] Performed By: #### 5 8410-2 #### [facility] CLIA [id number] [address] [place] [address] [place] WBC (Bld) [#/Vol] 8.32 10*3/uL Normal 3.70-11.00 [facility] Comment on above: Order Comment: Speci men Type: BLOOD SPECIMEN [facility] Address: [address] [place] [address] Performed By: #### 5 8410-2 #### [facility] CLIA [id number] [address] [place] [address] [place] Renal function 2000 panelon 07-11-2024 Albumin [Mass/Vol] 3.4 g/dL Low 3.9-4.9 [facility] Comment on above: Order Comment: Speci men Type: BLOOD SPECIMENOrdering Facility: [facility] Address: [address] [place] [address] Performed By: #### 2 4362-6 ####[facility] LABCLIA [id number] [place] [address] [place] Anion gap [Moles/Vol] 11 mmol/L Normal 8-15 [facility] Comment on above: Order Comment: Speci men Type: BLOOD SPECIMENOrdering Facility: [facility] Address: [address] [place] [address] Performed By: #### 2 4362-6 ####[facility] LABCLIA [id number] [place] [address] [place] Calcium [Mass/Vol] 8.9 mg/dL Normal 8.5-10.2 [facility] Comment on above: Order Comment: Speci men Type: BLOOD SPECIMENOrdering Facility: [facility] Address: [address] [place] [address] Performed By: #### 2 4362-6 ####[facility] LABCLIA [id number] [place] [address] [place] Chloride [Moles/Vol] 103 mmol/L Normal 98-107 [facility] Comment on above: Order Comment: Speci men Type: BLOOD SPECIMENOrdering Facility: [facility] Address: [address] [place] [address] Performed By: #### 2 4362-6 ####[facility] LABCLIA [id number] [place] [address] [place] CO2 [Moles/Vol] 23 mmol/L Normal 22-[address] [facility] Comment on above: Order Comment: Speci men Type: BLOOD SPECIMENOrdering Facility: [facility] Address: [address] [place] [address] Performed By: #### 2 4362-6 ####[facility] LABCLIA [id number] [place] [address] [place] Creatinine [Mass/Vol] 0.91 mg/dL Normal 0.58-0.96 [facility] Comment on above: Order Comment: Speci men Type: BLOOD SPECIMENOrdering Facility: [facility] Address: [address] [place] [address] Performed By: #### 2 4362-6 ####[facility]CLIA [id number] [place] [address] [place] Creatinine and Glomerular filtration rate.predicted panel (S/P/Bld) 62 mL/min/1.73m??? Normal >=[address] [facility] Comment on above: Order Comment: Speci men Type: BLOOD SPECIMENOrdering Facility: [facility] Address: [address] [place] [address] Result Comment: Isa mated Glomerular Filtration Rate (eGFR) is calculated using the 2021 CKD-EPI creatinine equation. This equation utilizes serum creatinine, sex, and age as parameters. The creatinine assay has traceable calibration to isotope dilution-mass spectrometry. Refer to KDIGO guidelines for clinical interpretation. In patients with unstable renal function, e.g. those with acute kidney injury, the eGFR may not accurately reflect actual GFR. Performed By: #### 2 4362-6 ####[facility] LABIA [id number] [place] [address] [place] Glucose [Mass/Vol] 98 mg/dL Normal 74-99 [facility] Comment on above: Order Comment: Rhina mason Type: BLOOD SPECIMENOrdering Facility: [facility] Address: [address] [place] [address] Result Comment: The [place] Diabetes Association (ADA) provides guidance for cutoff [...] Standards of Medical Care in Diabetes 2016, [place] [employer]. Diabetes Care. 2016.39(Suppl 1). Performed By: #### 2 4362-6 ####[facility] LABIA [id number] [place] [id number] [place] Phosphate [Mass/Vol] 2.8 mg/dL Normal 2.7-4.8 [facility] Comment on above: Order Comment: Rhina mason Type: BLOOD SPECIMENOrdering Facility: [facility] Address: [address] [place] [address] Performed By: #### 2 4362-6 ####[facility] LABCLIA [id number] [address] [address] [place] Potassium [Moles/Vol] 3.6 mmol/L Low 3.7-5.1 [facility] Comment on above: Order Comment: Speci men Type: BLOOD SPECIMENOrdering Facility: [facility] Address: [address] [place] [address] Performed By: #### 2 4362-6 ####[facility] LABCLIA [id number] [place] [address] [place] Sodium [Moles/Vol] 137 mmol/L Normal 136-144 [facility] Comment on above: Order Comment: Speci men Type: BLOOD SPECIMENOrdering Facility: [facility] Address: [address] [place] [address] Performed By: #### 2 4362-6 ####[facility] LABCLIA [id number] [place] [address] [place] Urea nitrogen [Mass/Vol] 15 mg/dL Normal 7-[address] [facility] Comment on above: Order Comment: Speci men Type: BLOOD SPECIMENOrdering Facility: [facility] Address: [address] [place] [address] Performed By: #### 2 4362-6 ####[facility] LABCLIA [id number] [address] [place] CASE MANAGEMon 07-10-2024 CASE MANAGEM HNO ID: [id number] Author: TREY HUGHES LSW Service: Social Work Author Type: Windows Support Engineer Type: Care Mgt Progress Note Filed: 07/10/2024 14:42 Note Text: CARE MANAGEMENT PROGRESS NOTE SERVICE DATE: 07/10/2024 SERVICE TIME: 2:38 PM LOS: 3 days Post-Acute Discharge Planning Patient Goal(s): Increase strength Jefferson of Choice Explained: Jefferson of Choice Given: Yes Post-Acute Discharge Plan: [...] July 10, 2024 TIME: 2:38 PM Normal [facility] CBC panel Auto (Bld)on 07-10 Erythrocyte distribution width (RBC) [Ratio] 17.5 % High 11.5-15.[address] [facility] Comment on above: Order Comment: Speci men Type: BLOOD SPECIMEN Ordering Facility: [facility] Address: [address] [place] [address] Performed By: #### 2 276-4 #### [facility] CLIA [id number] [address] [place] [address] [place] Hematocrit (Bld) [Volume fraction] 31.7 % Low 36.0-46.[address] [facility] Comment on above: Order Comment: Speci men Type: BLOOD SPECIMEN Ordering Facility: [facility] Address: [address] [place] [address] Performed By: #### 2 276-4 #### [facility] CLIA [id number] [address] [place] [address] [place] Hemoglobin (Bld) [Mass/Vol] 9.9 g/dL Low 11.5-15.[address] [facility] Comment on above: Order Comment: Speci men Type: BLOOD SPECIMEN Ordering Facility: [facility] Address: [address] [place] [address] Performed By: #### 2 276-4 #### [facility] CLIA [id number] [address] [place] [address] [place] MCH (RBC) [Entitic mass] 26.0 pg Normal 26.0-34.[address] [facility] Comment on above: Order Comment: Speci men Type: BLOOD SPECIMEN Ordering Facility: [facility] Address: [address] [place] [address] Performed By: #### 2 276-4 #### [facility] CLIA [id number] [address] [place] [address] [place] MCHC (RBC) [Mass/Vol] 31.2 g/dL Normal 30.5-36.0 [facility] Comment on above: Order Comment: Speci men Type: BLOOD SPECIMEN Ordering Facility: [facility] Address: [address] [place] [address] Performed By: #### 2 276-4 #### [facility] CLIA [id number] [address] [place] [address] [place] MCV (RBC) [Entitic vol] 83.2 fL Normal 80.0-100.0 [facility] Comment on above: Order Comment: Speci men Type: BLOOD SPECIMEN Ordering Facility: [facility] Address: [address] [place] [address] Performed By: #### 2 276-4 #### [facility] CLIA [id number] [address] [place] [address] [place] Nucleated RBC (Bld) [#/Vol] 10*3/uL Normal <0.[address] [facility] Comment on above: Order Comment: Speci men Type: BLOOD SPECIMEN Ordering Facility: [facility] Address: [address] [place] [address] Performed By: #### 2 276-4 #### [facility] CLIA [id number] [address] [place] [address] [place] Platelet mean volume (Bld) [Entitic vol] 10.3 fL Normal 9.0-12.[address] [facility] Comment on above: Order Comment: Speci men Type: BLOOD SPECIMEN Ordering Facility: [facility] Address: [address] [place] [address] Performed By: #### 2 276-4 #### [facility] CLIA [id number] [address] [place] [address] [place] Platelets (Bld) [#/Vol] 336 10*3/uL Normal 150-[address] [facility] Comment on above: Order Comment: Speci men Type: BLOOD SPECIMEN Ordering Facility: [facility] Address: [address] [place] [address] Performed By: #### 2 276-4 #### [facility] CLIA [id number] [address] [place] [id number] [place] RBC (Bld) [#/Vol] 3.81 10*6/uL Low 3.90-5.20 [facility] Comment on above: Order Comment: Speci men Type: BLOOD SPECIMEN Ordering Facility: [facility] Address: [address] [place] [address] Performed By: #### 2 276-4 #### [facility] CLIA [id number] [address] [place] [address] [place] WBC (Bld) [#/Vol] 6.35 10*3/uL Normal 3.70-11.00 [facility] Comment on above: Order Comment: Speci men Type: BLOOD SPECIMEN Ordering Facility: [facility] Address: [address] [place] [address] Performed By: #### 2 276-4 #### [facility] CLIA [id number] [address] [place] [address] [place] Renal function 2000 panelon 07-10-2024 Albumin [Mass/Vol] 3.5 g/dL Low 3.9-4.9 [facility] Comment on above: Order Comment: Speci men Type: BLOOD SPECIMEN [facility] Address: [address] [place] [address] Performed By: #### 2 4362-6 #### [facility] CLIA [id number] [address] [place] [address] [place] Anion gap [Moles/Vol] 12 mmol/L Normal 8-15 [facility] Comment on above: Order Comment: Speci men Type: BLOOD SPECIMEN [facility] Address: [address] [place] [address] Performed By: #### 2 4362-6 #### [facility] CLIA [id number] [address] [place] [address] [place] Calcium [Mass/Vol] 9.0 mg/dL Normal 8.5-10.2 [facility] Comment on above: Order Comment: Speci men Type: BLOOD SPECIMEN [facility] Address: [address] [place] [address] Performed By: #### 2 4362-6 #### [facility] CLIA [id number] [address] [place] [address] [place] Chloride [Moles/Vol] 104 mmol/L Normal 98-107 [facility] Comment on above: Order Comment: Speci men Type: BLOOD SPECIMEN [facility] Address: [address] [place] [address] Performed By: #### 2 4362-6 #### [facility] CLIA [id number] [address] [place] [address] [place] CO2 [Moles/Vol] 22 mmol/L Normal 22-[address] [facility] Comment on above: Order Comment: Speci men Type: BLOOD SPECIMEN [facility] Address: [address] [place] [address] Performed By: #### 2 4362-6 #### [facility] CLIA [id number] [address] [place] [address] [place] Creatinine [Mass/Vol] 0.93 mg/dL Normal 0.58-0.96 [facility] Comment on above: Order Comment: Speci men Type: BLOOD SPECIMEN [facility] Address: [address] [place] [address] Performed By: #### 2 4362-6 #### [facility] CLIA [id number] [address] [place] [address] [place] Creatinine and Glomerular filtration rate.predicted panel (S/P/Bld) 61 mL/min/1.73m??? Normal >=[address] [facility] Comment on above: Order Comment: Speci men Type: BLOOD SPECIMEN [facility] Address: [address] [place] [address] Result Comment: Isa mated Glomerular Filtration Rate [...] GFR. Performed By: #### 2 4362-6 #### [facility] CLIA [id number] [address] [place] [address] [place] Glucose [Mass/Vol] 102 mg/dL High 74-99 [facility] Comment on above: Order Comment: Rhina mason Type: BLOOD SPECIMEN [facility] Address: [address] [place] [address] Result Comment: The [place] [employer] (ADA) provides guidance for cutoff [...] Standards of Medical Care in Diabetes 2016, [place] [employer]. Diabetes Care. 2016.39(Suppl 1). Performed By: #### 2 4362-6 #### [facility] CLIA [id number] [address] [place] [address] [place] Phosphate [Mass/Vol] 2.6 mg/dL Low 2.7-4.8 [facility] Comment on above: Order Comment: Rhina mason Type: BLOOD SPECIMEN [facility] Address: [address] [place] [address] Performed By: #### 2 4362-6 #### [facility] CLIA [id number] [address] [place] [address] [place] Potassium [Moles/Vol] 3.9 mmol/L Normal 3.7-5.1 [facility] Comment on above: Order Comment: Speci men Type: BLOOD SPECIMEN [facility] Address: [address] [place] [address] Performed By: #### 2 4362-6 #### [facility] CLIA [id number] [address] [place] [address] [place] Sodium [Moles/Vol] 138 mmol/L Normal 136-144 [facility] Comment on above: Order Comment: Speci men Type: BLOOD SPECIMEN Ordering Facility: [facility] Address: [address] [place] [address] Performed By: #### 2 4362-6 #### [facility] CLIA [id number] [address] [place] [address] [place] Urea nitrogen [Mass/Vol] 21 mg/dL Normal 7-[address] [facility] Comment on above: Order Comment: Speci men Type: BLOOD SPECIMEN Ordering Facility: [facility] Address: [address] [place] [address] Performed By: #### 2 4362-6 #### [facility] CLIA [id number] [address] [place] [address] [place] THERAPY NTon 07-10-2024 THERAPY NT HNO ID: [id number] Author: SANTIAGO GUZMAN OT/L Service: Occupational Therapy Author Type: Occupational Therapist Type: Therapy (PT/OT/Speech/Resp) Filed: 07/10/2024 10:00 Note Text: Occupational Therapy Evaluation Summary SERVICE DATE: 07/10/2024 SERVICE TIME: 839 to 919 ROOM: [place] [address] OT 6 Clicks Score: 15 DISCHARGE RECOMMENDATIONS Subacute/SNF Recommended Discharge Disposition Comments: SNF rec at this time pending pt visual improvement, AND overall medical course. If pt were to d/c home she would require 24/ assist d/t visual limitations. SNF rec at [...] and occasionally the color while / pediatric radiologist colors. SNF rec at this time pending [...] Muscle Weakness (generalized) TREATMENT INTERVENTIONS Evaluation, Self Assisted Management (67867) Timed Code Treatment (minutes): 25 Skilled Treatment [...] Sit to Stand, Standing Balance to Improve [place] with ADLs/Self-Care, Sitting Balance to Improve [place] with ADLs/Self-Care, Life Roles/Routines/Habits THERAPEUTIC SKILLS USED Therapeutic Use of Self, Physical Assist, Movement Facilitation, Management of Critical Lines, Tubes and/or Drains FUNCTIONAL STATUS Activities of Daily Living Assist Level Additional Information Feeding Minimal Assistance Grooming Moderate Assistance Bathing Upper Body Minimal Assistance Bathing Lower Body Ma (more content not included)... Normal [facility] CBC panel Auto (Bld)on 07-09 Erythrocyte distribution width (RBC) [Ratio] 17.7 % High 11.5-15.[address] [facility] Comment on above: Order Comment: Speci men Type: BLOOD SPECIMEN Ordering Facility: [facility] Address: [address] [place] [address] Performed By: #### 2 4362-6 #### [facility] CLIA [id number] [address] [place] [address] [place] [address] [place] Hematocrit (Bld) [Volume fraction] 33.9 % Low 36.0-46.[address] [facility] Comment on above: Order Comment: Speci men Type: BLOOD SPECIMEN Ordering Facility: [facility] Address: [address] [place] [address] Performed By: #### 2 4362-6 #### [facility] CLIA [id number] [address] [place] [address] [place] Hemoglobin (Bld) [Mass/Vol] 10.5 g/dL Low 11.5-15.[address] [facility] Comment on above: Order Comment: Speci men Type: BLOOD SPECIMEN Ordering Facility: [facility] Address: [address] [place] [address] Performed By: #### 2 4362-6 #### [facility] CLIA [id number] [address] [place] [address] [place] MCH (RBC) [Entitic mass] 26.6 pg Normal 26.0-34.[address] [facility] Comment on above: Order Comment: Speci men Type: BLOOD SPECIMEN Ordering Facility: [facility] Address: [address] [place] [address] Performed By: #### 2 4362-6 #### [facility] CLIA [id number] [address] [place] [address] [place] MCHC (RBC) [Mass/Vol] 31.0 g/dL Normal 30.5-36.0 [facility] Comment on above: Order Comment: Speci men Type: BLOOD SPECIMEN Ordering Facility: [facility] Address: [address] [place] [address] Performed By: #### 2 4362-6 #### [facility] CLIA [id number] [address] [place] [address] [place] MCV (RBC) [Entitic vol] 86.0 fL Normal 80.0-100.0 [facility] Comment on above: Order Comment: Speci men Type: BLOOD SPECIMEN Ordering Facility: [facility] Address: [address] [place] [address] Performed By: #### 2 4362-6 #### [facility] CLIA [id number] [address] [place] [address] [place] Nucleated RBC (Bld) [#/Vol] 10*3/uL Normal <0.[address] [facility] Comment on above: Order Comment: Speci men Type: BLOOD SPECIMEN Ordering Facility: [facility] Address: [address] [place] [address] Performed By: #### 2 4362-6 #### [facility] CLIA [id number] [address] [place] [address] [place] Platelet mean volume (Bld) [Entitic vol] 10.4 fL Normal 9.0-12.[address] [facility] Comment on above: Order Comment: Speci men Type: BLOOD SPECIMEN Ordering Facility: [facility] Address: [address] [place] [address] Performed By: #### 2 4362-6 #### [facility] CLIA [id number] [address] [place] [address] [place] Platelets (Bld) [#/Vol] 346 10*3/uL Normal 150-[address] [facility] Comment on above: Order Comment: Speci men Type: BLOOD SPECIMEN Ordering Facility: [facility] Address: [address] [place] [address] Performed By: #### 2 4362-6 #### [facility] CLIA [id number] [address] [place] [address] [place] RBC (Bld) [#/Vol] 3.94 10*6/uL Normal 3.90-5.20 [facility] Comment on above: Order Comment: Speci men Type: BLOOD SPECIMEN Ordering Facility: [facility] Address: [address] [place] [address] Performed By: #### 2 4362-6 #### [facility] CLIA [id number] [address] [place] [address] [place] WBC (Bld) [#/Vol] 8.22 10*3/uL Normal 3.70-11.00 [facility] Comment on above: Order Comment: Speci men Type: BLOOD SPECIMEN Ordering Facility: [facility] Address: [address] [place] [address] Performed By: #### 2 4362-6 #### [facility] CLIA [id number] [address] [place] [address] [place] Renal function 2000 panelon 07-09-2024 Albumin [Mass/Vol] 3.6 g/dL Low 3.9-4.9 [facility] Comment on above: Order Comment: Speci men Type: BLOOD SPECIMEN Ordering Facility: [facility] Address: [address] [place] [address] Performed By: #### 2 4362-6 #### [facility] CLIA [id number] [address] [place] [address] [place] Anion gap [Moles/Vol] 11 mmol/L Normal 8-15 [facility] Comment on above: Order Comment: Speci men Type: BLOOD SPECIMEN Ordering Facility: [facility] Address: [address] [place] [address] Performed By: #### 2 4362-6 #### [facility] CLIA [id number] [address] [place] [address] [place] Calcium [Mass/Vol] 8.8 mg/dL Normal 8.5-10.2 [facility] Comment on above: Order Comment: Speci men Type: BLOOD SPECIMEN Ordering Facility: [facility] Address: [address] [place] [address] Performed By: #### 2 4362-6 #### [facility] CLIA [id number] [address] [place] [address] [place] Chloride [Moles/Vol] 103 mmol/L Normal 98-107 [facility] Comment on above: Order Comment: Speci men Type: BLOOD SPECIMEN Ordering Facility: [facility] Address: [address] [place] [address] Performed By: #### 2 4362-6 #### [facility] CLIA [id number] [address] [place] [address] [place] CO2 [Moles/Vol] 22 mmol/L Normal 22-[address] [facility] Comment on above: Order Comment: Speci men Type: BLOOD SPECIMEN Ordering Facility: [facility] Address: [address] [place] [address] Performed By: #### 2 4362-6 #### [facility] CLIA [id number] [address] [place] [address] [place] Creatinine [Mass/Vol] 0.94 mg/dL Normal 0.58-0.96 [facility] Comment on above: Order Comment: Speci men Type: BLOOD SPECIMEN Ordering Facility: [facility] Address: [address] [place] [address] Performed By: #### 2 4362-6 #### [facility] CLIA [id number] [address] [place] [address] [place] Creatinine and Glomerular filtration rate.predicted panel (S/P/Bld) 60 mL/min/1.73m??? Normal >=[address] [facility] Comment on above: Order Comment: Speci men Type: BLOOD SPECIMEN Ordering Facility: [facility] Address: [address] [place] [address] Result Comment: Isa mated Glomerular Filtration Rate [...] GFR. Performed By: #### 2 4362-6 #### [facility] CLIA [id number] [address] [place] [address] [place] Glucose [Mass/Vol] 158 mg/dL High 74-99 [facility] Comment on above: Order Comment: Rhina mason Type: BLOOD SPECIMEN Ordering Facility: [facility] Address: [address] [place] [address] Result Comment: The [place] Diabetes Association (ADA) provides guidance for cutoff [...] Standards of Medical Care in Diabetes 2016, [place] [employer]. Diabetes Care. 2016.39(Suppl 1). Performed By: #### 2 4362-6 #### [facility] CLIA [id number] [address] [place] [address] [place] Phosphate [Mass/Vol] 2.0 mg/dL Low 2.7-4.8 [facility] Comment on above: Order Comment: Rhina mason Type: BLOOD SPECIMEN Ordering Facility: [facility] Address: [address] [place] [address] Performed By: #### 2 4362-6 #### [facility] CLIA [id number] [address] [place] [address] [place] Potassium [Moles/Vol] 4.1 mmol/L Normal 3.7-5.1 [facility] Comment on above: Order Comment: Rhina mason Type: BLOOD SPECIMEN Ordering Facility: [facility] Address: [address] [place] [address] Performed By: #### 2 4362-6 #### [facility] CLIA [id number] [address] [place] [address] [place] Sodium [Moles/Vol] 136 mmol/L Normal 136-144 [facility] Comment on above: Order Comment: Specrobson mason Type: BLOOD SPECIMEN Ordering Facility: [facility] Address: [address] [place] [address] Performed By: #### 2 4362-6 #### [facility] CLIA [id number] [address] [place] [address] [place] Urea nitrogen [Mass/Vol] 18 mg/dL Normal 7-[address] [facility] Comment on above: Order Comment: Specrobson mason Type: BLOOD SPECIMEN Ordering Facility: [facility] Address: [address] [place] [address] Performed By: #### 2 4362-6 #### [facility] CLIA [id number] [address] [place] [address] OF [facility] CONSULTon 07-08-2024 CONSULT HNO ID: [id number] Author: JARED GILMORE MD Service: Ophthalmology Author [...] Mon-Tue, 7 am - 5 pm, page [phone] Tue-Tue, 5 pm - 7 am, page [phone] Weekends (Fri 5 pm to Mon 7 am), page [phone] EXAM: Base Eye Exam Visual Acuity Right Left Dist sc CF at 3' Tonometry (Applanation, 8:30 AM) Right Left Pressure 14 Pupils Dark Light Shape React Right 6 (more content not included)... Normal [facility] [id number] 07-07-2024 [id number] Normal [facility] BASIC METABOLIC PANELon 12 Anion gap [Moles/Vol] 4 mmol/L Normal 3-13 [facility] Comment on above: Performed By: #### L [id number] ####Insurance Billing Specialist: VELMA VALADEZ ([phone])[facility] ([facility])[address] [place] [address] Calcium [Mass/Vol] 8.7 mg/dL Low 8.8-10.0 [facility] Comment on above: Performed By: #### L AB15 ####Insurance Billing Specialist: VELMA VALADEZ ([phone])[facility] ([facility])[address] [place] [address] Chloride [Moles/Vol] 111 mmol/L High 98-107 [facility] Comment on above: Performed By: #### L AB15 ####Insurance Billing Specialist: VELMA VALADEZ ([phone])[facility] ([facility])[address] [place] [address] CO2 [Moles/Vol] 23 mmol/L Normal 23-31 [facility] Comment on above: Performed By: #### L AB15 ####Insurance Billing Specialist: VELMA VALADEZ ([phone])[facility] ([facility])[address] [place] [address] Creatinine [Mass/Vol] 0.84 mg/dL Normal 0.57-1.11 [facility] Comment on above: Performed By: #### L AB15 ####Insurance Billing Specialist: VELMA VALADEZ ([phone])[facility] ([facility])[address] [place] [address] [place] GLOMERULAR FILTRATION RATE ML/MIN/1.73 SQ M.PREDICTED 68.6 mL/min/1.73m*2 Normal >60.0 [facility] Comment on above: Result Comment: Calc ulation based on the Chronic Kidney Disease Epidemiology Collaboration (CKD-EPI) equation refit without adjustment for race Performed By: #### L AB15 ####Insurance Billing Specialist: VELMA VALADEZ ([phone])[facility] ([facility])[address] [place] [address] Glucose [Mass/Vol] 102 mg/dL Normal 82-115 [facility] Comment on above: Performed By: #### L AB15 ####Insurance Billing Specialist: VELMA VALADEZ ([phone])[facility] ([facility])[address] [place] [address] Potassium [Moles/Vol] 4.0 mmol/L Normal 3.5-5.1 [facility] Comment on above: Result Comment: [facility] potassium values may be up to 0.5 mmol/L lower than serum values. Performed By: #### L AB15 ####Insurance Billing Specialist: VELMA VALADEZ ([phone])[facility] ([facility])[address] [place] [address] Sodium [Moles/Vol] 138 mmol/L Normal 136-145 [facility] Comment on above: Performed By: #### L AB15 ####Insurance Billing Specialist: VELMA VALADEZ ([phone])[facility] ([facility])[address] [place] [address] Urea nitrogen [Mass/Vol] 19 mg/dL Normal 9-23 [facility] Comment on above: Performed By: #### L [id number] ####Insurance Billing Specialist: VELMA VALADEZ ([phone])[facility])[address] [place] [address] Basic metabolic 1998 panelon 07-07-2024 Anion gap [Moles/Vol] 4 mmol/L 3 - 13 mmol/L [facility] Calcium [Mass/Vol] 8.7 mg/dL Low 8.8 - 10. 0 mg/dL [facility] Chloride [Moles/Vol] 111 mmol/L High 98 - 10 7 mmol/L [facility] CO2 [Moles/Vol] 23 mmol/L 23 - 31 mmol/L [facility] Creatinine [Mass/Vol] 0.84 mg/dL 0.57 - 1.11 mg/dL [facility] GFR/1.73 sq M.predicted (S/P/Bld) [Vol rate/Area] 68.6 mL/min - PINF [facility] Comment on above: Calculation based on the Chronic Kidney Disease Epidemiology Collaboration (CKD-EPI) equation refit without adjustment for race Glucose [Mass/Vol] 102 mg/dL 82 - 115 mg/dL [facility] Interpretation and review of laboratory results Abnormal [facility] Potassium [Moles/Vol] 4 mmol/L 3.5 - 5.1 mmol/L [facility] Comment on above: Plasma potassium chris ues may be up to 0.5 mmol/L lower than serum values. Sodium [Moles/Vol] 138 mmol/L 136 - 145 mmol/L [facility] Urea nitrogen [Mass/Vol] 19 mg/dL 9 - 23 mg/dL [facility] CBC W Auto Differential pane l (Bld)Ordered By: Devika Eisenberg on 07-07-2024 Basophils (Bld) [#/Vol] 0 10*3/uL 0.0 - 0.2 10*3/uL [facility] Basophils/100 WBC (Bld) 0.4 % 0.0 - 2.0 % [facility] Eosinophils (Bld) [#/Vol] 0.1 10*3/uL 0.0 - 0.5 10*3/uL [facility] Eosinophils/100 WBC (Bld) 1.3 % 0.0 - 6.0 % [facility] Erythrocyte distribution width (RBC) [Ratio] 17.6 % High 11.5 - 15.0 % [facility] Hematocrit (Bld) [Volume fraction] 29.9 % Low 35.0 - 47.0 % [facility] Hemoglobin (Bld) [Mass/Vol] 9.1 g/dL Low 11.7 - 16.0 g/dL [facility] Immature granulocytes (Bld) [#/Vol] 0 10*3/uL NINF - 0.1 10*3/uL [facility] Immature granulocytes/100 WBC (Bld) 0.2 % 0.0 - 2.0 % [facility] Interpretation and review of laboratory results Abnormal [facility] Lymphocytes (Bld) [#/Vol] 1.2 10*3/uL 1.0 - 4.3 10*3/uL [facility] Lymphocytes/100 WBC (Bld) 22 % 15.0 - 45.0 % [facility] MCH (RBC) [Entitic mass] 25.9 pg Low 26.0 - 34.0 pg [facility] MCHC (RBC) [Mass/Vol] 30.4 % Low 30.5 - 36.0 % [facility] MCV (RBC) [Entitic vol] 84.9 fL 77.0 - 99.0 fL [facility] Monocytes (Bld) [#/Vol] 0.6 10*3/uL 0.0 - 0.9 10*3/uL [facility] Monocytes/100 WBC (Bld) 10 % 5.0 - 13.0 % [facility] Neutrophils (Bld) [#/Vol] 3.7 10*3/uL 1.8 - 7.5 10*3/uL [facility] Neutrophils/100 WBC (Bld) 66.1 % 38.0 - 82.0 % [facility] Nucleated RBC/100 WBC (Bld) [Ratio] 0 % [facility] Platelet mean volume (Bld) [Entitic vol] 9.8 fL 9.0 - 12.7 fL [facility] Platelets (Bld) [#/Vol] 301 10*3/uL 140 - 440 10*3/uL [facility] RBC (Bld) [#/Vol] 3.52 10*6/uL Low 3.80 - 5.2 0 10*6/uL [facility] WBC (Bld) [#/Vol] 5.6 10*3/uL 3.6 - 10.7 10*3/uL [facility] CBC WITH AUTO DIFFERENTIALon 07-07-2024 Basophils (Bld) [#/Vol] 0.0 10*3/uL Normal 0.0-0.2 [facility] Comment on above: Performed By: #### L [id number] ####Insurance Billing Specialist: VELMA VALADEZ ([phone])[facility] ([facility])[address] [place] [address] Basophils/100 WBC (Bld) 0.4 % Normal 0.0-2.0 [facility] Comment on above: Performed By: #### L [id number] ####Insurance Billing Specialist: VELMA VALADEZ ([phone])[facility] ([facility])[address] [place] [address] Eosinophils (Bld) [#/Vol] 0.1 10*3/uL Normal 0.0-0.5 [facility] Comment on above: Performed By: #### L [id number] ####Insurance Billing Specialist: VELMA VALADEZ ([phone])[facility])[address] [place] [address] Eosinophils/100 WBC (Bld) 1.3 % Normal 0.0-6.0 [facility] Comment on above: Performed By: #### L [id number] ####Insurance Billing Specialist: VELMA VALADEZ ([phone])[facility])[address] [place] [address] Erythrocyte distribution width (RBC) [Ratio] 17.6 % High 11.5-15.0 [facility] Comment on above: Performed By: #### L [id number] ####Insurance Billing Specialist: VELMA VALADEZ ([phone])[address] Hematocrit (Bld) [Volume fraction] 29.9 % Low 35.0-47.0 [facility] Comment on above: Performed By: #### L [id number] ####Insurance Billing Specialist: VELMA VALADEZ ([phone])[address] Hemoglobin (Bld) [Mass/Vol] 9.1 g/dL Low 11.7-16.0 [facility] Comment on above: Performed By: #### L [id number] ####Insurance Billing Specialist: VELMA VALADEZ ([phone])[facility])[address] [place] [address] IMMATURE GRANS % 0.2 % Normal 0.0-2.0 [facility] Comment on above: Performed By: #### L [id number] ####Insurance Billing Specialist: VELMA VALADEZ ([phone])[address] IMMATURE GRANS ABSOLUTE 0.0 10*3/uL Normal <0.1 [facility] Comment on above: Performed By: #### L [id number] ####Insurance Billing Specialist: VELMA VALADEZ ([phone])[facility])[address] [place] [address] Lymphocytes (Bld) [#/Vol] 1.2 10*3/uL Normal 1.0-4.3 [facility] Comment on above: Performed By: #### L [id number] ####Insurance Billing Specialist: VELMA VALADEZ ([phone])[facility])[address] [place] [address] Lymphocytes/100 WBC (Bld) 22.0 % Normal 15.0-45.0 [facility] Comment on above: Performed By: #### L [id number] ####Insurance Billing Specialist: VELMA VALADEZ ([phone])[facility])[address] [place] [address] MCH (RBC) [Entitic mass] 25.9 pg Low 26.0-34.0 [facility] Comment on above: Performed By: #### L [id number] ####Insurance Billing Specialist: VELMA VALADEZ ([phone])[facility])[address] [place] [address] MCHC 30.4 % Low 30.5-36.0 [facility] Comment on above: Performed By: #### L [id number] ####Insurance Billing Specialist: VELMA VALADEZ ([phone])[facility])[address] [place] [address] MCV (RBC) [Entitic vol] 84.9 fL Normal 77.0-99.0 [facility] Comment on above: Performed By: #### L [id number] ####Insurance Billing Specialist: VELMA VALADEZ ([phone])[facility])[address] [place] [address] Monocytes (Bld) [#/Vol] 0.6 10*3/uL Normal 0.0-0.9 [facility] Comment on above: Performed By: #### L [id number] ####Insurance Billing Specialist: VELMA VALADEZ ([phone])[facility] [place] [address] Monocytes/100 WBC (Bld) 10.0 % Normal 5.0-13.0 [facility] Comment on above: Performed By: #### L [id number] ####Insurance Billing Specialist: VELMA VALADEZ ([phone])[facility] ([facility])[address] [place] [address] NEUTROPHILS ABSOLUTE 3.7 10*3/uL Normal 1.8-7.5 [facility] Comment on above: Performed By: #### L [id number] ####Insurance Billing Specialist: VELMA VALADEZ ([phone])[facility] ([facility])[address] [place] [address] Neutrophils/100 WBC (Bld) 66.1 % Normal 38.0-82.0 [facility] Comment on above: Performed By: #### L [id number] ####Insurance Billing Specialist: VELMA VALADEZ ([phone])[facility] ([facility])[address] [place] [address] NRBC 0.0 /100 WBCs Normal 0.0-2.0 [facility] Comment on above: Performed By: #### L [id number] ####Insurance Billing Specialist: VELMA VALADEZ ([phone])[facility] ([facility])[address] [place] [address] Platelet mean volume (Bld) [Entitic vol] 9.8 fL Normal 9.0-12.7 [facility] Comment on above: Performed By: #### L [id number] ####Insurance Billing Specialist: VELMA VALADEZ ([phone])[facility] ([facility])[address] [place] [address] [place] Platelets (Bld) [#/Vol] 301 10*3/uL Normal 140-440 [facility] Comment on above: Performed By: #### L [id number] ####Insurance Billing Specialist: VELMA VALADEZ ([phone])[facility] ([facility])[address] [place] [address] [place] RBC (Bld) [#/Vol] 3.52 10*6/uL Low 3.80-5.20 [facility] Comment on above: Performed By: #### L [id number] ####Insurance Billing Specialist: VELMA VALADEZ ([phone])[facility] ([facility])[address] [place] [address] WBC (Bld) [#/Vol] 5.6 10*3/uL Normal 3.6-10.7 [facility] Comment on above: Performed By: #### L [id number] ####Insurance Billing Specialist: VELMA VALADEZ ([id number])[facility] [place] [address] CBC panel Auto (Bld)on 07-07 Erythrocyte distribution width (RBC) [Ratio] 17.5 % High 11.5-15.[address] [facility] Comment on above: Order Comment: Speci men Type: BLOOD SPECIMEN Ordering Facility: [facility] Address: [address] [place] [address] Performed By: #### 2 4362-6 #### [facility] CLIA [id number] [address] [place] [address] [place] Hematocrit (Bld) [Volume fraction] 32.7 % Low 36.0-46.[address] [facility] Comment on above: Order Comment: Speci men Type: BLOOD SPECIMEN Ordering Facility: [facility] Address: [address] [place] [address] Performed By: #### 2 4362-6 #### [facility] CLIA [id number] [address] [place] [address] [place] Hemoglobin (Bld) [Mass/Vol] 10.2 g/dL Low 11.5-15.[address] [facility] Comment on above: Order Comment: Speci men Type: BLOOD SPECIMEN Ordering Facility: [facility] Address: [address] [place] [address] Performed By: #### 2 4362-6 #### [facility] CLIA [id number] [address] [place] [address] [place] MCH (RBC) [Entitic mass] 26.8 pg Normal 26.0-34.[address] [facility] Comment on above: Order Comment: Speci men Type: BLOOD SPECIMEN Ordering Facility: [facility] Address: [address] [place] [address] Performed By: #### 2 4362-6 #### [facility] CLIA [id number] [address] [place] [address] [place] MCHC (RBC) [Mass/Vol] 31.2 g/dL Normal 30.5-36.0 [facility] Comment on above: Order Comment: Speci men Type: BLOOD SPECIMEN Ordering Facility: [facility] Address: [address] [place] [address] Performed By: #### 2 4362-6 #### [facility] CLIA [id number] [address] [place] [address] [place] MCV (RBC) [Entitic vol] 86.1 fL Normal 80.0-100.0 [facility] Comment on above: Order Comment: Speci men Type: BLOOD SPECIMEN Ordering Facility: [facility] Address: [address] [place] [address] Performed By: #### 2 4362-6 #### [facility] CLIA [id number] [address] [place] [address] [place] Nucleated RBC (Bld) [#/Vol] 10*3/uL Normal <0.[address] [facility] Comment on above: Order Comment: Speci men Type: BLOOD SPECIMEN Ordering Facility: [facility] Address: [address] [place] [address] Performed By: #### 2 4362-6 #### [facility] CLIA [id number] [address] [place] [address] [place] Platelet mean volume (Bld) [Entitic vol] 9.8 fL Normal 9.0-12.[address] [facility] Comment on above: Order Comment: Speci men Type: BLOOD SPECIMEN Ordering Facility: [facility] Address: [address] [place] [address] Performed By: #### 2 4362-6 #### [facility] CLIA [id number] [address] [place] [address] [place] Platelets (Bld) [#/Vol] 284 10*3/uL Normal 150-[address] [facility] Comment on above: Order Comment: Speci men Type: BLOOD SPECIMEN Ordering Facility: [facility] Address: [address] [place] [address] Performed By: #### 2 4362-6 #### [facility] CLIA [id number] [address] [place] [address] [place] RBC (Bld) [#/Vol] 3.80 10*6/uL Low 3.90-5.20 [facility] Comment on above: Order Comment: Speci men Type: BLOOD SPECIMEN Ordering Facility: [facility] Address: [address] [place] [address] Performed By: #### 2 4362-6 #### [facility] CLIA [id number] [address] [place] [address] [place] WBC (Bld) [#/Vol] 5.72 10*3/uL Normal 3.70-11.00 [facility] Comment on above: Order Comment: Speci men Type: BLOOD SPECIMEN Ordering Facility: [facility] Address: [address] [place] [address] Performed By: #### 2 4362-6 #### [facility] CLIA [id number] [address] [place] [address] [place] ORBITS WO IVCONon 07-07-[address] ORBITS WO IVCON * * *Final Report* * * DATE OF EXAM: Jul 07 2024 8:21PM [facility] 0510 - CT ORBITS WO IVCON / [...] changes. Unchanged appearance of left globe/phthisis bulbi. Patient Admitting Clerk: PSCYoan Transcribe Date/Time: Jul 07 2024 8:24P Dictated by : ULICES LEBLANC MD This examination was interpreted and the report reviewed and electronically signed by: DE JAIN MD on Jul 07 2024 9:18PM EST [id number] Normal 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 She was subsequently taken by the [facility] folder for peripheral iridotomy's, which helped to reduce elevated intraocular pressure down to 10.2 mmHg in the R eye. Furthermore, was evaluated by stroke team at [facility] who reviewed her images and believed her headache and severe vision loss was secondary to the acute closure glaucoma and not stroke. Ultimately, it was determined that due to vision now being reduced to only one eye she required retinal specialist at [place] for repair of acute retinal detachment on [...] of breath., Disp: , Rfl: , 07/06/2024 gbunttzkrpq-igergbbqx-h ilanter (TRELEGY ELLIPTA) 100-62.5-25 mcg inhalation powder, Inhale 1 (more content not included)... Normal [facility] NURSING PROGon 07-07-2024 NURSING PROG HNO ID: [id number] Author: SONNY CASTILLO RN Service: Nursing Author [...] notify nurse if she experiences pain. Normal [facility] NURSING PROG HNO ID: [id number] Author: WINIFRED HILLS RN Service: ? Author Type: Registered Nurse Type: Nursing Progress Note Filed: 07/07/2024 12:15 Note Text: Transfer Note: PATIENT NAME: Mel Castillo Patient Location: H060 031/H060-31 Room: H060-31 Patient transferred into room/unit H60-31 in stable condition. Actions taken: Team notified. Patient belongings with patient. Pt oriented to the floor policy and fall prevention protocol. Call light within reach. Normal [facility] Nursing Noteon 07-07-2024 Nursing Note Report called to [facility]. Normal [facility] Progress Noteon 07-07-2024 Progress Note Nutrition rescreen completed. Chart reviewed. Patient to be monitored and followed by the diet laser technician. Normal [facility] Renal function 2000 panelon 07-07-2024 Albumin [Mass/Vol] 3.7 g/dL Low 3.9-4.9 [facility] Comment on above: Order Comment: Speci men Type: BLOOD SPECIMEN Ordering Facility: [facility] Address: [address] [place] [address] Performed By: #### 2 4362-6 #### [facility] CLIA [id number] [address] [place] [address] [place] Anion gap [Moles/Vol] 12 mmol/L Normal 8-15 [facility] Comment on above: Order Comment: Speci men Type: BLOOD SPECIMEN Ordering Facility: [facility] Address: [address] [place] [address] Performed By: #### 2 4362-6 #### [facility] CLIA [id number] [address] [place] [address] [place] Calcium [Mass/Vol] 9.2 mg/dL Normal 8.5-10.2 [facility] Comment on above: Order Comment: Speci men Type: BLOOD SPECIMEN Ordering Facility: [facility] Address: [address] [place] [address] Performed By: #### 2 4362-6 #### [facility] CLIA [id number] [address] [place] [address] [place] Chloride [Moles/Vol] 107 mmol/L Normal 98-107 [facility] Comment on above: Order Comment: Speci men Type: BLOOD SPECIMEN Ordering Facility: [facility] Address: [address] [place] [address] Performed By: #### 2 4362-6 #### [facility] CLIA [id number] [address] [place] [address] [place] CO2 [Moles/Vol] 20 mmol/L Low 22-[address] [facility] Comment on above: Order Comment: Speci men Type: BLOOD SPECIMEN Ordering Facility: [facility] Address: [address] [place] [address] Performed By: #### 2 4362-6 #### [facility] CLIA [id number] [address] [place] [address] [place] Creatinine [Mass/Vol] 0.82 mg/dL Normal 0.58-0.96 [facility] Comment on above: Order Comment: Speci men Type: BLOOD SPECIMEN Ordering Facility: [facility] Address: [address] [place] [address] Performed By: #### 2 4362-6 #### [facility] CLIA [id number] [address] [place] [address] [place] Creatinine and Glomerular filtration rate.predicted panel (S/P/Bld) 71 mL/min/1.73m??? Normal >=[address] [facility] Comment on above: Order Comment: Speci men Type: BLOOD SPECIMEN Ordering Facility: [facility] Address: [address] [place] [address] Result Comment: Isa mated Glomerular Filtration Rate [...] GFR. Performed By: #### 2 4362-6 #### [facility] CLIA [id number] [address] [place] [address] [place] Glucose [Mass/Vol] 106 mg/dL High 74-99 [facility] Comment on above: Order Comment: Rhina mason Type: BLOOD SPECIMEN Ordering Facility: [facility] Address: [address] [place] [address] Result Comment: The [place] [employer] Association (ADA) provides guidance for cutoff [...] Standards of Medical Care in Diabetes 2016, [place] [employer]. Diabetes Care. 2016.39(Suppl 1). Performed By: #### 2 4362-6 #### [facility] CLIA [id number] [address] [place] [address] [place] Phosphate [Mass/Vol] 3.0 mg/dL Normal 2.7-4.8 [facility] Comment on above: Order Comment: Rhina mason Type: BLOOD SPECIMEN Ordering Facility: [facility] Address: [address] [place] [address] Performed By: #### 2 4362-6 #### [facility] CLIA [id number] [address] [place] [address] [place] Potassium [Moles/Vol] 4.3 mmol/L Normal 3.7-5.1 [facility] Comment on above: Order Comment: Rhina mason Type: BLOOD SPECIMEN Ordering Facility: [facility] Address: [address] [place] [address] Performed By: #### 2 4362-6 #### [facility] CLIA [id number] [address] [place] [address] [place] Sodium [Moles/Vol] 139 mmol/L Normal 136-144 [facility] Comment on above: Order Comment: Speci men Type: BLOOD SPECIMEN Ordering Facility: [facility] Address: [address] [place] [address] Performed By: #### 2 4362-6 #### [facility] CLIA [id number] [address] [place] [address] [place] Urea nitrogen [Mass/Vol] 16 mg/dL Normal 7-[address] [facility] Comment on above: Order Comment: Speci men Type: BLOOD SPECIMEN Ordering Facility: [facility] Address: [address] [place] [address] Performed By: #### 2 4362-6 #### [facility] CLIA [id number] [address] [place] [address] [place] [id number] 07-06-2024 [id number] Normal [facility] BASIC METABOLIC PANELon 06-18 Anion gap [Moles/Vol] 9 mmol/L Normal 3-13 [facility] Comment on above: Performed By: #### L [id number] ####Insurance Billing Specialist: VELMA VALADEZ ([phone])[address] Calcium [Mass/Vol] 8.9 mg/dL Normal 8.8-10.0 [facility] Comment on above: Performed By: #### L [id number] ####Insurance Billing Specialist: VELMA VALADEZ ([phone])[facility] ([facility])[address] [place] [address] Chloride [Moles/Vol] 113 mmol/L High 98-107 [facility] Comment on above: Performed By: #### L AB15 ####Insurance Billing Specialist: VELMA VALADEZ ([phone])[facility])[address] [place] [address] CO2 [Moles/Vol] 18 mmol/L Low 23-31 [facility] Comment on above: Performed By: #### L [id number] ####Insurance Billing Specialist: VELMA VALADEZ ([phone])[facility])[address] [place] [address] Creatinine [Mass/Vol] 0.86 mg/dL Normal 0.57-1.11 [facility] Comment on above: Performed By: #### L [id number] ####Insurance Billing Specialist: VELMA VALADEZ ([phone])[facility])[address] [place] [address] [place] GLOMERULAR FILTRATION RATE ML/MIN/1.73 SQ M.PREDICTED 66.7 mL/min/1.73m*2 Normal >60.0 [facility] Comment on above: Result Comment: Calc ulation based on the Chronic Kidney Disease Epidemiology Collaboration (CKD-EPI) equation refit without adjustment for race Performed By: #### L [id number] ####Insurance Billing Specialist: VELMA VALADEZ ([phone])[facility])[address] [place] [address] [place] Glucose [Mass/Vol] 74 mg/dL Low 82-115 [facility] Comment on above: Performed By: #### L [id number] ####Insurance Billing Specialist: VELMA VALADEZ ([phone])[facility])[address] [place] [address] Potassium [Moles/Vol] 4.5 mmol/L Normal 3.5-5.1 [facility] Comment on above: Result Comment: [facility] potassium values may be up to 0.5 mmol/L lower than serum values. Performed By: #### L AB15 ####Insurance Billing Specialist: VELMA VALADEZ ([phone])[facility] ([facility])[address] [place] [address] [place] Sodium [Moles/Vol] 140 mmol/L Normal 136-145 [facility] Comment on above: Performed By: #### L AB15 ####Insurance Billing Specialist: VELMA VALADEZ ([phone])[facility] ([facility])[address] [place] [address] [place] Urea nitrogen [Mass/Vol] 16 mg/dL Normal 9-23 [facility] Comment on above: Performed By: #### L AB15 ####Insurance Billing Specialist: VELMA VALADEZ ([phone])[facility] ([address] Basic metabolic 1998 panelon 07-06-2024 Anion gap [Moles/Vol] 9 mmol/L 3 - 13 mmol/L [facility] Calcium [Mass/Vol] 8.9 mg/dL 8.8 - 10. 0 mg/dL [facility] Chloride [Moles/Vol] 113 mmol/L High 98 - 10 7 mmol/L [facility] CO2 [Moles/Vol] 18 mmol/L Low 23 - 31 mmol/L [facility] Creatinine [Mass/Vol] 0.86 mg/dL 0.57 - 1.11 mg/dL [facility] GFR/1.73 sq M.predicted (S/P/Bld) [Vol rate/Area] 66.7 mL/min - PINF [facility] Comment on above: Calculation based on the Chronic Kidney Disease Epidemiology Collaboration (CKD-EPI) equation refit without adjustment for race Glucose [Mass/Vol] 74 mg/dL Low 82 - 115 mg/dL [facility] Interpretation and review of laboratory results Abnormal [facility] Potassium [Moles/Vol] 4.5 mmol/L 3.5 - 5.1 mmol/L [facility] Comment on above: Plasma potassium chris ues may be up to 0.5 mmol/L lower than serum values. Sodium [Moles/Vol] 140 mmol/L 136 - 145 mmol/L [facility] Urea nitrogen [Mass/Vol] 16 mg/dL 9 - 23 mg/dL [facility] CBC W Auto Differential pane l (Bld)Ordered By: Daija Doran on 07-06-2024 Basophils (Bld) [#/Vol] 0 10*3/uL 0.0 - 0.2 10*3/uL [facility] Basophils/100 WBC (Bld) 0.5 % 0.0 - 2.0 % [facility] Eosinophils (Bld) [#/Vol] 0 10*3/uL 0.0 - 0.5 10*3/uL [facility] Eosinophils/100 WBC (Bld) 0.3 % 0.0 - 6.0 % [facility] Erythrocyte distribution width (RBC) [Ratio] 17.8 % High 11.5 - 15.0 % [facility] Hematocrit (Bld) [Volume fraction] 31.8 % Low 35.0 - 47.0 % [facility] Hemoglobin (Bld) [Mass/Vol] 9.7 g/dL Low 11.7 - 16.0 g/dL [facility] Immature granulocytes (Bld) [#/Vol] 0 10*3/uL NINF - 0.1 10*3/uL [facility] Immature granulocytes/100 WBC (Bld) 0.3 % 0.0 - 2.0 % [facility] Interpretation and review of laboratory results Abnormal [facility] Lymphocytes (Bld) [#/Vol] 1.2 10*3/uL 1.0 - 4.3 10*3/uL [facility] Lymphocytes/100 WBC (Bld) 18.9 % 15.0 - 45.0 % [facility] MCH (RBC) [Entitic mass] 26.4 pg 26.0 - 34.0 pg [facility] MCHC (RBC) [Mass/Vol] 30.5 % 30.5 - 36.0 % [facility] MCV (RBC) [Entitic vol] 86.4 fL 77.0 - 99.0 fL [facility] Monocytes (Bld) [#/Vol] 0.5 10*3/uL 0.0 - 0.9 10*3/uL [facility] Monocytes/100 WBC (Bld) 8.2 % 5.0 - 13.0 % [facility] Neutrophils (Bld) [#/Vol] 4.4 10*3/uL 1.8 - 7.5 10*3/uL [facility] Neutrophils/100 WBC (Bld) 71.8 % 38.0 - 82.0 % [facility] Nucleated RBC/100 WBC (Bld) [Ratio] 0 % [facility] Platelet mean volume (Bld) [Entitic vol] 10.9 fL 9.0 - 12.7 fL [facility] Platelets (Bld) [#/Vol] 278 10*3/uL 140 - 440 10*3/uL [facility] RBC (Bld) [#/Vol] 3.68 10*6/uL Low 3.80 - 5.2 0 10*6/uL [facility] WBC (Bld) [#/Vol] 6.1 10*3/uL 3.6 - 10.7 10*3/uL [facility] CBC WITH AUTO DIFFERENTIALon 07-06-2024 Basophils (Bld) [#/Vol] 0.0 10*3/uL Normal 0.0-0.2 [facility] Comment on above: Performed By: #### L [id number] ####Insurance Billing Specialist: VELMA VALADEZ ([phone])[facility])[address] [place] [address] Basophils/100 WBC (Bld) 0.5 % Normal 0.0-2.0 [facility] Comment on above: Performed By: #### L [id number] ####Insurance Billing Specialist: VELMA VALADEZ ([phone])[facility])[address] [place] [address] Eosinophils (Bld) [#/Vol] 0.0 10*3/uL Normal 0.0-0.5 [facility] Comment on above: Performed By: #### L [id number] ####Insurance Billing Specialist: VELMA VALADEZ ([phone])[facility] ([facility])[address] [place] [address] Eosinophils/100 WBC (Bld) 0.3 % Normal 0.0-6.0 [facility] Comment on above: Performed By: #### L [id number] ####Insurance Billing Specialist: VELMA VALADEZ ([phone])[facility])[address] [place] [address] Erythrocyte distribution width (RBC) [Ratio] 17.8 % High 11.5-15.0 [facility] Comment on above: Performed By: #### L [id number] ####Insurance Billing Specialist: VELMA VALADEZ ([phone])[facility])[address] [place] [address] Hematocrit (Bld) [Volume fraction] 31.8 % Low 35.0-47.0 [facility] Comment on above: Performed By: #### L [id number] ####Insurance Billing Specialist: VELMA VALADEZ ([phone])[facility])[address] [place] [address] Hemoglobin (Bld) [Mass/Vol] 9.7 g/dL Low 11.7-16.0 [facility] Comment on above: Performed By: #### L [id number] ####Insurance Billing Specialist: VELAM VALADEZ ([phone])[facility])[address] [place] [address] IMMATURE GRANS % 0.3 % Normal 0.0-2.0 [facility] Comment on above: Performed By: #### L [id number] ####Insurance Billing Specialist: VELMA VALADEZ ([phone])[facility])[address] [place] [address] IMMATURE GRANS ABSOLUTE 0.0 10*3/uL Normal <0.1 [facility] Comment on above: Performed By: #### L [id number] ####Insurance Billing Specialist: VELMA VALADEZ ([phone])[facility])[address] [place] [address] Lymphocytes (Bld) [#/Vol] 1.2 10*3/uL Normal 1.0-4.3 [facility] Comment on above: Performed By: #### L [id number] ####Insurance Billing Specialist: VELMA VALADEZ ([phone])[address] Lymphocytes/100 WBC (Bld) 18.9 % Normal 15.0-45.0 [facility] Comment on above: Performed By: #### L [id number] ####Insurance Billing Specialist: VELMA VALADEZ ([phone])[facility])[address] [place] [address] MCH (RBC) [Entitic mass] 26.4 pg Normal 26.0-34.0 [facility] Comment on above: Performed By: #### L [id number] ####Insurance Billing Specialist: VELMA VALADEZ ([phone])[facility])[address] [place] [address] MCHC 30.5 % Normal 30.5-36.0 [facility] Comment on above: Performed By: #### L [id number] ####Insurance Billing Specialist: VELMA VALADEZ ([phone])[facility] ([facility])[address] [place] [address] MCV (RBC) [Entitic vol] 86.4 fL Normal 77.0-99.0 [facility] Comment on above: Performed By: #### L [id number] ####Insurance Billing Specialist: VELMA VALADEZ ([phone])[facility] ([facility])[address] [place] [address] Monocytes (Bld) [#/Vol] 0.5 10*3/uL Normal 0.0-0.9 [facility] Comment on above: Performed By: #### L [id number] ####Insurance Billing Specialist: VELMA VALADEZ ([phone])[facility] ([facility])[address] [place] [address] Monocytes/100 WBC (Bld) 8.2 % Normal 5.0-13.0 [facility] Comment on above: Performed By: #### L [id number] ####Insurance Billing Specialist: VELMA VALADEZ ([phone])[facility] ([facility])[address] [place] [address] NEUTROPHILS ABSOLUTE 4.4 10*3/uL Normal 1.8-7.5 [facility] Comment on above: Performed By: #### L [id number] ####Insurance Billing Specialist: VELMA VALADEZ ([phone])[facility] ([facility])[address] [place] [address] Neutrophils/100 WBC (Bld) 71.8 % Normal 38.0-82.0 [facility] Comment on above: Performed By: #### L [id number] ####Insurance Billing Specialist: VELMA VALADEZ ([phone])[facility])[address] [place] [address] NRBC 0.0 /100 WBCs Normal 0.0-2.0 [facility] Comment on above: Performed By: #### L [id number] ####Insurance Billing Specialist: VELMA VALADEZ ([phone])[facility] [place] [address] Platelet mean volume (Bld) [Entitic vol] 10.9 fL Normal 9.0-12.7 [facility] Comment on above: Performed By: #### L [id number] ####Insurance Billing Specialist: VELMA VALADEZ ([phone])[facility] ([facility])[address] [place] [address] Platelets (Bld) [#/Vol] 278 10*3/uL Normal 140-440 [facility] Comment on above: Performed By: #### L [id number] ####Insurance Billing Specialist: VELMA VALADEZ ([phone])[facility] ([facility])[address] [place] [address] RBC (Bld) [#/Vol] 3.68 10*6/uL Low 3.80-5.20 [facility] Comment on above: Performed By: #### L [id number] ####Insurance Billing Specialist: VELMA VALADEZ ([phone])[facility] ([facility])[address] [place] [address] WBC (Bld) [#/Vol] 6.1 10*3/uL Normal 3.6-10.7 [facility] Comment on above: Performed By: #### L [id number] ####Insurance Billing Specialist: VELMA VALADEZ ([phone])[facility] ([facility])[address] [place] [address] Lauren 07-06-2024 SHAMIKAN Telephone (KADENN) MEL GUADARRAMA ([id number]) 1940 F T Date Time Provider Department 07/06/24 RYAN ELIZONDO During your visit today, we recorded the following information about you: Ryan Elizondo MD 07/06/2024 2:42 PM Signed TELEPHONE ENCOUNTER 07/06/2024 Patient with recent stroke and admitted to [facility] where she was noted to have elevated IOP with retinal detachment of the right eye by consult gusset folder. 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 Was contacted about potential transfer to [facility] to be evaluated by retinal specialist. Discussed that given she is currently admitted on neurology floor the decision to transfer to [facility] should be discussed with medicine vs neurology and then ophthalmology service will be able to evaluate her potential retinal detachment and consider intervention as needed. PLAN: - discuss transferring to [facility] with medicine or neurology service - page ophthalmology when arrived - PLAN: VA, IOP, DFE, OCT mac OU, and optos OU Ryan Elizondo MD Ophthalmology Resident Allergies As of Date: 07/06/2024 Noted Allergy Reaction PERCOCET (OXYCODONE-ACETAMINOPHE N)06/16/2022 9 - Itching Date Reviewed: 06/13/2024 Reviewed by: Brianne Douglass, RADHA - Fully Assessed Prescriptions as of 07/06/2024 [...] as needed for wheezing/shortness of breath. - psnuzkbjlbz-lnusjqjvl-g ilanter (TRELEGY ELLIPTA) 100-62.5-25 mcg inhalation powder Inhale 1 Puff as instructed once daily. - acetaminophen (TYLENOL) 325 mg tablet Take 2 tablets by mouth every 6 hours as needed for pain. - pantoprazole DR (PROTONIX) 40 mg tablet Take [...] Status:Closed by RYAN ELIZONDO on 07/06/24 [facility] 07-[facility]2024 Consult Normal [facility] Nursing Noteon 07-06-2024 Nursing Note This RN called Protective Services to try and locate pts lost glasses from 07/05/2024. Glasses that match the description are in lost and found. Will attempt to see if glasses are a match. Normal [facility] Progress Noteon 07-06-2024 Progress Note Normal [facility] Progress Note Normal [facility] CBC (HEMOGRAM)on 07-05-2024 Erythrocyte distribution width (RBC) [Ratio] 17.2 % High 11.5-15.0 [facility] Comment on above: Performed By: #### L [id number] ####Insurance Billing Specialist: VELMA VALADEZ ([phone])[address] Hematocrit (Bld) [Volume fraction] 32.8 % Low 35.0-47.0 [facility] Comment on above: Performed By: #### L [id number] ####Insurance Billing Specialist: VELMA VALADEZ ([phone])[facility])[address] [place] [address] Hemoglobin (Bld) [Mass/Vol] 10.6 g/dL Low 11.7-16.0 [facility] Comment on above: Performed By: #### L [id number] ####Insurance Billing Specialist: VELMA VALADEZ ([phone])[address] MCH (RBC) [Entitic mass] 26.4 pg Normal 26.0-34.0 [facility] Comment on above: Performed By: #### L [id number] ####Insurance Billing Specialist: VELMA VALADEZ ([phone])[facility])[address] [place] [address] MCHC 32.3 % Normal 30.5-36.0 [facility] Comment on above: Performed By: #### L [id number] ####Insurance Billing Specialist: VELMA VALADEZ ([phone])[facility])[address] [place] [address] MCV (RBC) [Entitic vol] 81.8 fL Normal 77.0-99.0 [facility] Comment on above: Performed By: #### L [id number] ####Insurance Billing Specialist: VELMA VALADEZ ([phone])[facility])[address] [place] [address] Platelet mean volume (Bld) [Entitic vol] 9.6 fL Normal 9.0-12.7 [facility] Comment on above: Performed By: #### L [id number] ####Insurance Billing Specialist: VELMA VALADEZ ([phone])[facility] ([facility])[address] [place] [address] Platelets (Bld) [#/Vol] 349 10*3/uL Normal 140-440 [facility] Comment on above: Performed By: #### L [id number] ####Insurance Billing Specialist: VELMA VALADEZ ([phone])[facility] ([facility])[address] [place] [address] RBC (Bld) [#/Vol] 4.01 10*6/uL Normal 3.80-5.20 [facility] Comment on above: Performed By: #### L [id number] ####Insurance Billing Specialist: VELMA VALADEZ ([phone])[facility])[address] [place] [address] WBC (Bld) [#/Vol] 5.5 10*3/uL Normal 3.6-10.7 [facility] Comment on above: Performed By: #### L [id number] ####Insurance Billing Specialist: VELMA VALADEZ ([phone])[facility] ([facility])[address] [place] [address] CBC panel Auto (Bld)on 07-05 Erythrocyte distribution width (RBC) [Ratio] 17.2 % High 11.5 - 15.0 % [facility] Hematocrit (Bld) [Volume fraction] 32.8 % Low 35.0 - 47.0 % [facility] Hemoglobin (Bld) [Mass/Vol] 10.6 g/dL Low 11.7 - 16.0 g/dL [facility] Interpretation and review of laboratory results Abnormal [facility] MCH (RBC) [Entitic mass] 26.4 pg 26.0 - 34.0 pg [facility] MCHC (RBC) [Mass/Vol] 32.3 % 30.5 - 36.0 % [facility] MCV (RBC) [Entitic vol] 81.8 fL 77.0 - 99.0 fL [facility] Platelet mean volume (Bld) [Entitic vol] 9.6 fL 9.0 - 12.7 fL [facility] Platelets (Bld) [#/Vol] 349 10*3/uL 140 - 440 10*3/uL [facility] RBC (Bld) [#/Vol] 4.01 10*6/uL 3.80 - 5.2 0 10*6/uL [facility] WBC (Bld) [#/Vol] 5.5 10*3/uL 3.6 - 10.7 10*3/uL [facility] COMPREHENSIVE METABOLIC PANE Gilberto 07-05-2024 Albumin [Mass/Vol] 3.6 g/dL Normal 3.4-4.8 [facility] Comment on above: Performed By: #### L [id number], [id number] ####Insurance Billing Specialist: VELMA VALADEZ ([phone])[facility] ([facility])[address] [place] [address] ALP [Catalytic activity/Vol] 94 U/L Normal 40-150 [facility] Comment on above: Performed By: #### L [id number], [id number] ####Insurance Billing Specialist: VELMA VALADEZ ([phone])[facility] ([facility])[address] [place] [address] ALT [Catalytic activity/Vol] 23 U/L Normal <30 [facility] Comment on above: Performed By: #### L [id number], [id number] ####Insurance Billing Specialist: VELMA VALADEZ ([phone])[facility] ([facility])[address] [place] [address] Anion gap [Moles/Vol] 10 mmol/L Normal 3-13 [facility] Comment on above: Performed By: #### L [id number], [id number] ####Insurance Billing Specialist: VELMA VALADEZ ([phone])[facility] ([facility])[address] [place] [address] AST [Catalytic activity/Vol] 26 U/L Normal <34 [facility] Comment on above: Performed By: #### L [id number], [id number] ####Insurance Billing Specialist: VELMA VALADEZ ([phone])[facility] ([facility])[address] [place] [address] Bilirubin [Mass/Vol] 0.7 mg/dL Normal <1.2 [facility] Comment on above: Performed By: #### L [id number], [id number] ####Insurance Billing Specialist: VELMA VALADEZ ([phone])[facility])[address] [place] [address] Calcium [Mass/Vol] 9.2 mg/dL Normal 8.8-10.0 [facility] Comment on above: Performed By: #### L [id number], [id number] ####Insurance Billing Specialist: VELMA VALADEZ ([phone])[facility] ([facility])[address] [place] [address] Chloride [Moles/Vol] 107 mmol/L Normal 98-107 [facility] Comment on above: Performed By: #### L [id number], [id number] ####Insurance Billing Specialist: VELMA VALADEZ ([phone])[facility])[address] [place] [address] CO2 [Moles/Vol] 22 mmol/L Low 23-31 [facility] Comment on above: Performed By: #### L [id number], [id number] ####Insurance Billing Specialist: VELMA VALADEZ ([phone])[facility])[address] [place] [address] Creatinine [Mass/Vol] 0.82 mg/dL Normal 0.57-1.11 [facility] Comment on above: Performed By: #### L [id number], [id number] ####Insurance Billing Specialist: VELMA VALADEZ ([phone])[facility])[address] [place] [address] GLOMERULAR FILTRATION RATE ML/MIN/1.73 SQ M.PREDICTED 70.6 mL/min/1.73m*2 Normal >60.0 [facility] Comment on above: Result Comment: Calc ulation based on the Chronic Kidney Disease Epidemiology Collaboration (CKD-EPI) equation refit without adjustment for race Performed By: #### L [id number], [id number] ####Insurance Billing Specialist: VELMA VALADEZ ([phone])[facility])[address] [place] [address] Glucose [Mass/Vol] 118 mg/dL High 82-115 [facility] Comment on above: Performed By: #### L [id number], [id number] ####Insurance Billing Specialist: VELMA VALADEZ ([phone])[facility])[address] [place] [address] Potassium [Moles/Vol] 4.3 mmol/L Normal 3.5-5.1 [facility] Comment on above: Result Comment: [facility] potassium values may be up to 0.5 mmol/L lower than serum values. Performed By: #### L [id number], [id number] ####Insurance Billing Specialist: VELMA VALADEZ ([phone])[facility])[address] [place] [address] Protein [Mass/Vol] 7.0 g/dL Normal 6.4-8.3 [facility] Comment on above: Performed By: #### L [id number], [id number] ####Insurance Billing Specialist: VELMA VALADEZ ([phone])[facility] ([facility])[address] [place] [address] Sodium [Moles/Vol] 139 mmol/L Normal 136-145 [facility] Comment on above: Performed By: #### L [id number], [id number] ####Insurance Billing Specialist: VELMA VALADEZ ([phone])[facility])[address] [place] [address] Urea nitrogen [Mass/Vol] 13 mg/dL Normal 9-23 [facility] Comment on above: Performed By: #### L [id number], [id number] ####Insurance Billing Specialist: VELMA VALADEZ ([phone])[facility])[address] [place] [address] CT HEAD NECK ANGIO W AND WO IV CONTRASTon 07-05-2024 CT HEAD NECK ANGIO W AND WO IV CONTRAST Normal [facility] CT HEAD WO IV CONTRASTon CT HEAD WO IV CONTRAST Normal [facility] CT Head WO contraston 2023 Patient Name: WEN PATRICIA MEL : 1940 [facility]#: [id number] Exam Date/Time: 07/05/2024 04:36 Procedure: CT HEAD [...] of the cervica (more content not included)... [facility], Cirilo Khalil MD - 07/05/2024 [facility] 1940 [id number] Exam Date/Time: 07/05/2024 04:36 Procedure: CT HEAD [...] acute consolidative process (more content not included)... [facility] CT PERFUSIONon 07-05-2024 CT PERFUSION Normal [facility] CTA Head vessels and Neck ve ssels WO and W contrast Cheryl 07-05-2024 Patient Name: MEL CARVER RD : 1940 [facility]#: [id number] Exam Date/Time: 07/05/2024 04:36 Procedure: CT HEAD [...] Multilevel degenerative chopra (more content not included)... [facility] Cory, Cirilo Khalil MD - 07/05/2024 Patient Name: MEL POP : 1940 [facility]#: [id number] Exam Date/Time: 07/05/2024 04:36 Procedure: CT HEAD [...] no acute conso (more content not included)... [facility] Comprehensive metabolic 1998 panelon 07-05-2024 Albumin [Mass/Vol] 3.6 g/dL 3.4 - 4.8 g/dL [facility] ALP [Catalytic activity/Vol] 94 U/L 40 - 150 U/L [facility] ALT [Catalytic activity/Vol] 23 U/L [facility] Anion gap [Moles/Vol] 10 mmol/L 3 - 13 mmol/L [facility] AST [Catalytic activity/Vol] 26 U/L [facility] U/L [facility] Bilirubin [Mass/Vol] 0.7 mg/dL [facility] 1.[facility] mg/dL [facility] Calcium [Mass/Vol] 9.2 mg/dL 8.8 - 10. 0 mg/dL [facility] Chloride [Moles/Vol] 107 mmol/L 98 - 10 7 mmol/L [facility] CO2 [Moles/Vol] 22 mmol/L Low 23 - 31 mmol/L [facility] Creatinine [Mass/Vol] 0.82 mg/dL 0.57 - 1.11 mg/dL [facility] GFR/1.73 sq M.predicted (S/P/Bld) [Vol rate/Area] 70.6 mL/min - PINF [facility] Comment on above: Calculation based on the Chronic Kidney Disease Epidemiology Collaboration (CKD-EPI) equation refit without adjustment for race Glucose [Mass/Vol] 118 mg/dL High 82 - 115 mg/dL [facility] Interpretation and review of laboratory results Abnormal [facility] Potassium [Moles/Vol] 4.3 mmol/L 3.5 - 5.1 mmol/L [facility] Comment on above: Plasma potassium chris ues may be up to 0.5 mmol/L lower than serum values. Protein [Mass/Vol] 7 g/dL 6.4 - 8.3 g/dL [facility] Sodium [Moles/Vol] 139 mmol/L 136 - 145 mmol/L [facility] Urea nitrogen [Mass/Vol] 13 mg/dL 9 - 23 mg/dL [facility] Consulton 07-05-2024 Consult [facility] Consult [facility] Consult [facility] Consult [facility] ECG 12-LEADon 07-05-2024 ECG 12-LEAD IMPRESSION: Atrial fibrillation Electronically Signed On 07-05-2024 12:39:21 EST by Jhonatan Hernandez [facility] ED Nursing Noteon 07-05-[address] Carlson at bedside. Normal [facility] ED Nursing Note Provider notified of patient request for pain meds. [facility] ED Nursing Note Dr. Carlson at bedside [facility] ED Nursing Note Patient is returning back to room 32 at this time with Jose, Medic. Normal [facility] ED Nursing Note Pt emergently going to eye clinic. Pt being transported in wheelchair with trauma float RADHA Hinkle and Maritza FRAGA Pt being transported on zoll monitor and acls kit. Normal [facility] ED Nursing Note Ophthalmology at bedside [facility] ED Nursing Note Report to Maritza FRAGA [facility] ED Provider Noteon ED Provider Note Normal [facility] HEMOGLOBIN A1Con 07-05-2024 Glucose [Mass/Vol] 120 mg/dL Normal [facility] Comment on above: Result Comment: ORDE R COMMENTS:HbA1c values of 5.7-6.4 percent indicate an increased risk for developing diabetes mellitus. HbA1c values greater than or equal to 6.5 percent are diagnostic of diabetes mellitus. For diagnosis of diabetes in individuals without unequivocal hyperglycemia, results should be confirmed by repeat testing. Performed By: #### L [id number] ####Insurance Billing Specialist: VELMA VALADEZ ([phone])[facility] ([facility])[address] [place] [address] HEMOGLOBIN A1C 5.8 %HbA1C High <5.7 [facility] Comment on above: Result Comment: Norm al less than 5.7%Prediabetes 5.7% to 6.4%Diabetes 6.5% or higher--HgbA1C levels may not be accurate in patients who have renal disease, received recent blood transfusions, are anemic, or who have dyshemoglobinemia. Performed By: #### L [id number] ####Insurance Billing Specialist: VELMA VALADEZ ([phone])[facility] ([facility])[address] [place] [address] HIGH SENSITIVITY TROPONIN, S ERIAL BASELINEon 07-05-2024 TROPONIN HIGH SENSITIVITY BASELINE 14 ng/L Normal <=14 [facility] Comment on above: Performed By: #### L [id number] ####Insurance Billing Specialist: VELMA VALADEZ ([phone])[facility] ([facility])[address] [place] [address] HIGH SENSITIVITY TROPONIN, S ERIAL, SECOND TESTon 07-05-2024 TROPONIN HS DELTA, BASELINE TO SECOND -5 ng/L Normal <=2 [facility] Comment on above: Result Comment: This specimen [...] further clinical guidance. Performed By: #### L [id number], [id number] ####Insurance Billing Specialist: VELMA VALADEZ ([phone])[facility] ([facility])[address] [place] [address] TROPONIN HS, SERIAL REFLEX, TEST TWO 9 ng/L Normal <=14 [facility] Comment on above: Performed By: #### L [id number], [id number] ####Insurance Billing Specialist: VELMA VALADEZ ([phone])[facility] ([facility])[address] [place] [address] Laboratory - Chemistry and C hemistry - challengeon 07-05-2024 Average glucose Estimated from glycated hemoglobin (Bld) [Mass/Vol] 120 mg/dL [facility] Anion gap (Bld) [Moles/Vol] 8 mmol/L 3.00 - 13.00 [facility] Calcium.ionized (Bld) [Moles/Vol] 4.5 mg/dl 4.30 - 5.20 mg/dl [facility] Comment on above: Performed by [employer] CLIA ID:[id number] [place], [place] Device: [id number] Professor Of Physical Education ID: [id number] Chloride [Moles/Vol] 108 mmol/L 98 - 11 4 mmol/L [facility] CO2 [Moles/Vol] 23 mmol/L 21 - 29 mmol/L [facility] Creatinine [Mass/Vol] 0.9 mg/dL 0.6 - 1.3 mg/dL [facility] GFR/1.73 sq M.predicted CKD-EPI (S/P/Bld) [Vol rate/Area] 63.2 [facility] Comment on above: KDIGO guidelines pro vide [...] 104 mg/dL High 70 - 100 mg/dL [facility] Potassium [Moles/Vol] 4.5 mmol/L 3.4 - 5.1 mmol/L [facility] Sodium [Moles/Vol] 139 mmol/L 133 - 145 mmol/L [facility] Urea (Bld) [Mass/Vol] 14 mg/dL 4 - 22 mg/dL [facility] Glucose [Mass/Vol] 104 mg/dL High 70 - 100 mg/dL [facility] Laboratory - Coagulationon 1 09-05-2023 aPTT Coag (PPP) [Time] 30.4 s 20.0 - 30.5 s [facility] INR Coag (PPP) [Relative time] 1 {INR} 0.9 - 1.1 [facility] Comment on above: Recommended Anticoag ulant Therapy: [...] 11.7 s 9.0 - 1 2.0 s [facility] Laboratory - Hematology and Cell countson 07-05-2024 HbA1c (Bld) [Mass fraction] 5.8 % High NINF [facility] Comment on above: Normal less than 5.7 [...] Date/Time: 07/05/2024 12:13 PM [facility] [employer] Patient Name: MEL CARVER RD : 1940 Exam Date/Time: 07/05/2024 11:45 Procedure: [...] There is artifact within the right globe. [facility] Ming Fry MD - 07/05/2024 Patient Name: MEL POP : 1940 [facility]#: [id number] Exam Date/Time: 07/05/2024 11:45 Procedure: MR BRAIN [...] Electronically Signed Date/Time: 07/05/2024 12:13 PM EST [facility] Radiology Study observation (narrative) [facility] MR Brain WO contrastOrdered By: Ming Fry on 07-05-2024 [facility] Work Phone: No Panel Informationon 07-05 Heart Rate 59 bpm [facility] P [place] 0 degrees [facility] MD Interval 0 ms [facility] QRS [place] 37 degrees [facility] QRSD Interval 98 ms [facility] QT Interval 423 ms [facility] QTC Interval 418 ms [facility] T Wave [place] 29 degrees [facility] Atrial fibrillation Electronically Signed On 07-05-2024 12:39:21 EST by Jhonatan Hernandez CV Jhonatan Abdi MD - 07/05/2024 IMPRESSION: Atrial fibrillation Electronically Signed On 07-05-2024 12:39:21 EST by Jhonatan Hernandez [facility] Interpretation and review of laboratory results Abnormal [facility] HbA1c values of 5.7- 6.4 percent indicate an increased risk for developing diabetes mellitus. HbA1c values greater than or equal to 6.5 percent are diagnostic of diabetes mellitus. For diagnosis of diabetes in individuals without unequivocal hyperglycemia, results should be confirmed by repeat testing. [facility] Troponin HS Delta, Baseline to Second -5 ng/L NINF - 2 ng/L [facility] Comment on above: This specimen was co [...] guidance. Troponin HS, Serial Second 9 ng/L NINF - 14 ng/L [facility] 1. No acute intracranial hemorrhage or territorial [...] Electronically Signed Date/Time: 07/05/2024 5:03 AM EST [facility] Patient Name: MEL CARVER RD [facility] 1940 [id number] Exam Date/Time: 07/05/2024 04:36 Procedure: CT PERFUSION [...] the cervical spine. (more content not included)... [facility] Cory, Cirilo Khalil MD - 07/05/2024 Patient Name: MEL POP : 1940 [facility]#: [id number] Exam Date/Time: 07/05/2024 04:36 Procedure: CT PERFUSION [...] process or suspici (more content not included)... [facility] Interpretation and review of laboratory results Normal [facility] Troponin HS, Serial Baseline 14 ng/L NINF - 14 ng/L [facility] Interpretation and review of laboratory results Normal [facility] Interpretation and review of laboratory results Abnormal [facility] Performed by: [facility], [address] [place] [address] CLIA ID: [id number] [facility] Radiology Study observation (narrative) [facility] Interpretation and review of laboratory results Abnormal [facility] Performed by: [facility], [address] [place] [address] CLIA ID: [id number] [facility] No Panel InformationOrdered By: Cirilo Ray on 07-05-2024 [facility] Work Phone: PROTIME AND APTTon aPTT Coag (Bld) [Time] 30.4 s Normal 20.0-30.5 [facility] Comment on above: Performed By: #### L [id number] ####Insurance Billing Specialist: VELMA VALADEZ ([phone])[facility] ([facility])[address] [place] [address] INR Coag (PPP) [Relative time] 1.0 {INR} Normal 0.9-1.1 [facility] Comment on above: Result Comment: Timothy mmended [...] prevent Myocardial Infarction Performed By: #### L [id number] ####Insurance Billing Specialist: VELMA VALADEZ ([phone])[facility] ([facility])[address] [place] [address] PT Coag (PPP) [Time] 11.7 s Normal 9.0-12.0 [facility] Comment on above: Performed By: #### L [id number] ####Insurance Billing Specialist: VELMA VALADEZ ([phone])[facility] [place] [address] Progress Noteon 07-05-2024 Progress Note Normal [facility] CBC panel Auto (Bld)on 07-02 Erythrocyte distribution width (RBC) [Ratio] 16.9 % High 11.5 - 15.0 % [facility] Hematocrit (Bld) [Volume fraction] 29.6 % Low 36.0 - 46.0 % [facility] Hemoglobin (Bld) [Mass/Vol] 9.3 g/dL Low 11.5 - 15.5 g/dL [facility] Interpretation and review of laboratory results Abnormal [facility] MCH (RBC) [Entitic mass] 26.7 pg 26.0 - 34.0 pg [facility] MCHC (RBC) [Mass/Vol] 31.4 g/dL 30.5 - 36.0 g/dL [facility] MCV (RBC) [Entitic vol] 85.1 fL 80.0 - 100.0 fL [facility] Nucleated RBC (Bld) [#/Vol] NINF [facility] Platelet mean volume (Bld) [Entitic vol] 10.2 fL 9.0 - 12.7 fL [facility] Platelets (Bld) [#/Vol] 324 10*3/uL [facility] RBC (Bld) [#/Vol] 3.48 10*6/uL Low 3.90 - 5.2 0 m/uL [facility] WBC (Bld) [#/Vol] 5.12 10*3/uL [facility] Erythrocyte distribution width (RBC) [Ratio] 16.9 % High 11.5-15.[address] [facility] Comment on above: Order Comment: Speci men Type: BLOOD SPECIMENOrdering Facility: [facility] Yogi Patñio Address: [address] [place] [address] Performed By: #### 5 8410-2 ####[facility] LABORATORYCLIA [id number] [address] Hematocrit (Bld) [Volume fraction] 29.6 % Low 36.0-46.[address] [facility] Comment on above: Order Comment: Speci men Type: BLOOD SPECIMENOrdering Facility: [facility] Address: [address] [place] [address] Performed By: #### 5 8410-2 ####[facility] LABORATORYCLIA [id number] [address] [place] Hemoglobin (Bld) [Mass/Vol] 9.3 g/dL Low 11.5-15.[address] [facility] Comment on above: Order Comment: Speci men Type: BLOOD SPECIMENOrdering Facility: [facility] Address: [address] [place] [address] Performed By: #### 5 8410-2 ####[facility] LABORATORYCLIA [id number] [address] [place] [facility] MCH (RBC) [Entitic mass] 26.7 pg Normal 26.0-34.[address] [facility] Comment on above: Order Comment: Speci men Type: BLOOD SPECIMENOrdering Facility: [facility] Address: [address] [place] [address] Performed By: #### 5 8410-2 ####[facility] LABORATORYCLIA [id number] [address] [place] MCHC (RBC) [Mass/Vol] 31.4 g/dL Normal 30.5-36.0 [facility] Comment on above: Order Comment: Speci men Type: BLOOD SPECIMENOrdering Facility: [facility] Address: [address] [place] [address] Performed By: #### 5 8410-2 ####[facility] LABORATORYCLIA [id number] [address] [place] MCV (RBC) [Entitic vol] 85.1 fL Normal 80.0-100.0 [facility] Comment on above: Order Comment: Speci men Type: BLOOD SPECIMENOrdering Facility: [facility] Address: [address] [place] [address] Performed By: #### 5 8410-2 ####[facility] LABORATORYCLIA [id number] [place] [address] [place] Nucleated RBC (Bld) [#/Vol] 10*3/uL Normal <0.[address] [facility] Comment on above: Order Comment: Speci men Type: BLOOD SPECIMENOrdering Facility: [facility] Address: [address] [place] [address] Performed By: #### 5 8410-2 ####M[facility] LABORATORYCLIA [id number] [place] [address] [place] Platelet mean volume (Bld) [Entitic vol] 10.2 fL Normal 9.0-12.[address] [facility] Comment on above: Order Comment: Speci men Type: BLOOD SPECIMENOrdering Facility: [facility] Address: [address] [place] [address] Performed By: #### 5 8410-2 ####[facility] LABORATORYCLIA [id number] [place] [address] [place] Platelets (Bld) [#/Vol] 324 10*3/uL Normal 150-[address] [facility] Comment on above: Order Comment: Speci men Type: BLOOD SPECIMENOrdering Facility: [facility] Address: [address] [place] [address] Performed By: #### 5 8410-2 ####M[facility] LABORATORYCLIA [id number] [place] [address] [place] RBC (Bld) [#/Vol] 3.48 10*6/uL Low 3.90-5.20 [facility] Comment on above: Order Comment: Speci men Type: BLOOD SPECIMENOrdering Facility: [facility] Address: [address] [place] [address] Performed By: #### 5 8410-2 ####MOR[facility] LABORATORYCLIA [id number] [place] [address] WBC (Bld) [#/Vol] 5.12 10*3/uL Normal 3.70-11.00 [facility] Comment on above: Order Comment: Speci men Type: BLOOD SPECIMENOrdering Facility: [facility] Address: [address] [place] [address] Performed By: #### 5 8410-2 ####[facility] LABORATORYCLIA [id number] [address] CBC panel Auto (Bld)on 06-28 Erythrocyte distribution width (RBC) [Ratio] 16.6 % High 11.5 - 15.0 % [facility] Hematocrit (Bld) [Volume fraction] 28.8 % Low 36.0 - 46.0 % [facility] Hemoglobin (Bld) [Mass/Vol] 9.0 g/dL Low 11.5 - 15.5 g/dL [facility] Interpretation and review of laboratory results Abnormal [facility] MCH (RBC) [Entitic mass] 26.8 pg 26.0 - 34.0 pg [facility] MCHC (RBC) [Mass/Vol] 31.3 g/dL 30.5 - 36.0 g/dL [facility] MCV (RBC) [Entitic vol] 85.7 fL 80.0 - 100.0 fL [facility] Nucleated RBC (Bld) [#/Vol] NINF [facility] Platelet mean volume (Bld) [Entitic vol] 10.5 fL 9.0 - 12.7 fL [facility] Platelets (Bld) [#/Vol] 316 10*3/uL [facility] RBC (Bld) [#/Vol] 3.36 10*6/uL Low 3.90 - 5.2 0 m/uL [facility] WBC (Bld) [#/Vol] 5.27 10*3/uL [facility] Erythrocyte distribution width (RBC) [Ratio] 16.6 % High 11.5-15.[address] [facility] Comment on above: Order Comment: Rhina mason Type: BLOOD SPECIMEN [facility] Address: [address] [place] [address] Performed By: #### 2 276-4 #### [facility] CLIA [id number] [place] [address] [place] Hematocrit (Bld) [Volume fraction] 28.8 % Low 36.0-46.[address] [facility] Comment on above: Order Comment: Speci men Type: BLOOD SPECIMEN [facility] Address: [address] [place] [address] Performed By: #### 2 276-4 #### [facility] CLIA [id number] [address] [place] [address] [place] Hemoglobin (Bld) [Mass/Vol] 9.0 g/dL Low 11.5-15.[address] [facility] Comment on above: Order Comment: Speci men Type: BLOOD SPECIMEN [facility] Address: [address] [place] [address] Performed By: #### 2 276-4 #### [facility] CLIA [id number] [address] [place] [address] [place] MCH (RBC) [Entitic mass] 26.8 pg Normal 26.0-34.[address] [facility] Comment on above: Order Comment: Speci men Type: BLOOD SPECIMEN [facility] Address: [address] [place] [address] Performed By: #### 2 276-4 #### [facility] CLIA [id number] [address] [place] [address] [place] MCHC (RBC) [Mass/Vol] 31.3 g/dL Normal 30.5-36.0 [facility] Comment on above: Order Comment: Speci men Type: BLOOD SPECIMEN [facility] Address: [address] [place] [address] Performed By: #### 2 276-4 #### [facility] CLIA [id number] [address] [place] [address] [place] MCV (RBC) [Entitic vol] 85.7 fL Normal 80.0-100.0 [facility] Comment on above: Order Comment: Speci men Type: BLOOD SPECIMEN [facility] Address: [address] [place] [address] Performed By: #### 2 276-4 #### [facility] CLIA [id number] [address] [place] [address] [place] Nucleated RBC (Bld) [#/Vol] 10*3/uL Normal <0.[address] [facility] Comment on above: Order Comment: Speci men Type: BLOOD SPECIMEN [facility] Address: [address] [place] [address] Performed By: #### 2 276-4 #### [facility] CLIA [id number] [address] [place] [address] [place] Platelet mean volume (Bld) [Entitic vol] 10.5 fL Normal 9.0-12.[address] [facility] Comment on above: Order Comment: Speci men Type: BLOOD SPECIMEN [facility] Address: [address] [place] [address] Performed By: #### 2 276-4 #### [facility] CLIA [id number] [address] [place] [address] [place] Platelets (Bld) [#/Vol] 316 10*3/uL Normal 150-[address] [facility] Comment on above: Order Comment: Speci men Type: BLOOD SPECIMEN [facility] Address: [address] [place] [address] Performed By: #### 2 276-4 #### [facility] CLIA [id number] [address] [place] [address] [place] RBC (Bld) [#/Vol] 3.36 10*6/uL Low 3.90-5.20 [facility] Comment on above: Order Comment: Speci men Type: BLOOD SPECIMEN [facility] Address: [address] [place] [address] Performed By: #### 2 276-4 #### [facility] CLIA [id number] [address] [place] [address] [place] WBC (Bld) [#/Vol] 5.27 10*3/uL Normal 3.70-11.00 [facility] Comment on above: Order Comment: Rhina mason Type: BLOOD SPECIMEN [facility] Address: [address] [place] [address] Performed By: #### 2 276-4 #### [facility] CLIA [id number] [address] [place] [address] [place] FERRITINon 06-27-2024 Ferritin [Mass/Vol] 67.5 ng/mL 14.7 - 205.1 ng/mL [facility] Ferritin SerPl-mCncon 2023 Ferritin [Mass/Vol] 67.5 ng/mL Normal 14.7-205.1 [facility] Comment on above: Order Comment: Rhina mason Type: BLOOD SPECIMEN [facility] Address: [address] [place] [address] Performed By: #### 2 276-4 #### [facility] CLIA [id number] [address] [place] [address] [place] Ferritin [Mass/Vol]on 2023 Interpretation and review of laboratory results Normal [facility] Iron and Iron binding capaci ty panelon 06-27-2024 Interpretation and review of laboratory results Abnormal [facility] Iron [Mass/Vol] 30 ug/dL Low 41 - 186 ug/dL [facility] Iron binding capacity [Mass/Vol] 298 ug/dL 232 - 386 ug/dL [facility] Iron/TIBC [Molar ratio] 10.1 % Low 15.0 - 57.0 % [facility] Iron [Mass/Vol] 30 ug/dL Low 41-[address] [facility] Comment on above: Order Comment: Rhina mason Type: BLOOD SPECIMEN [facility] Address: [address] [place] [address] Performed By: #### 2 276-4 #### [facility] CLIA [id number] [address] [place] [address] [place] Iron binding capacity [Mass/Vol] 298 ug/dL Normal 232-[address] [facility] Comment on above: Order Comment: Speci men Type: BLOOD SPECIMEN [facility] Address: [address] [place] [address] Performed By: #### 2 276-4 #### [facility] CLIA [id number] [address] [facility] Iron/TIBC [Molar ratio] 10.1 % Low 15.0-57.0 [facility] Comment on above: Order Comment: Speci men Type: BLOOD SPECIMEN [facility] Address: [address] [place] [address] Performed By: #### 2 276-4 #### [facility] CLIA [id number] [address] [place] [address] [place] CBC panel Auto (Bld)on 06-25 Erythrocyte distribution width (RBC) [Ratio] 15.9 % High 11.5 - 15.0 % [facility] Hematocrit (Bld) [Volume fraction] 28.7 % Low 36.0 - 46.0 % [facility] Hemoglobin (Bld) [Mass/Vol] 9.0 g/dL Low 11.5 - 15.5 g/dL [facility] Interpretation and review of laboratory results Abnormal [facility] MCH (RBC) [Entitic mass] 26.7 pg 26.0 - 34.0 pg [facility] MCHC (RBC) [Mass/Vol] 31.4 g/dL 30.5 - 36.0 g/dL [facility] MCV (RBC) [Entitic vol] 85.2 fL 80.0 - 100.0 fL [facility] Nucleated RBC (Bld) [#/Vol] NINF [facility] Platelet mean volume (Bld) [Entitic vol] 10.8 fL 9.0 - 12.7 fL [facility] Platelets (Bld) [#/Vol] 315 10*3/uL [facility] RBC (Bld) [#/Vol] 3.37 10*6/uL Low 3.90 - 5.2 0 m/uL [facility] WBC (Bld) [#/Vol] 4.96 10*3/uL [facility] Erythrocyte distribution width (RBC) [Ratio] 15.9 % High 11.5-15.[address] [facility] Comment on above: Order Comment: Speci men Type: BLOOD SPECIMEN Ordering Facility: [facility] Address: [address] [place] [address] Performed By: #### 2 4362-6 #### [facility] CLIA [id number] [address] [place] [address] [place] Hematocrit (Bld) [Volume fraction] 28.7 % Low 36.0-46.[address] [facility] Comment on above: Order Comment: Speci men Type: BLOOD SPECIMEN Ordering Facility: [facility] Address: [address] [place] [address] Performed By: #### 2 4362-6 #### [facility] CLIA [id number] [address] [place] [address] [place] Hemoglobin (Bld) [Mass/Vol] 9.0 g/dL Low 11.5-15.[address] [facility] Comment on above: Order Comment: Speci men Type: BLOOD SPECIMEN Ordering Facility: [facility] Address: [address] [place] [address] Performed By: #### 2 4362-6 #### [facility] CLIA [id number] [address] [place] [address] [place] MCH (RBC) [Entitic mass] 26.7 pg Normal 26.0-34.[address] [facility] Comment on above: Order Comment: Speci men Type: BLOOD SPECIMEN Ordering Facility: [facility] Address: [address] [place] [address] Performed By: #### 2 4362-6 #### [facility] CLIA [id number] [address] [place] [address] [place] MCHC (RBC) [Mass/Vol] 31.4 g/dL Normal 30.5-36.0 [facility] Comment on above: Order Comment: Speci men Type: BLOOD SPECIMEN Ordering Facility: [facility] Address: [address] [place] [address] Performed By: #### 2 4362-6 #### [facility] CLIA [id number] [address] [place] [address] [place] MCV (RBC) [Entitic vol] 85.2 fL Normal 80.0-100.0 [facility] Comment on above: Order Comment: Speci men Type: BLOOD SPECIMEN Ordering Facility: [facility] Address: [address] [place] [address] Performed By: #### 2 4362-6 #### [facility] CLIA [id number] [address] [place] [address] [place] Nucleated RBC (Bld) [#/Vol] 10*3/uL Normal <0.[address] [facility] Comment on above: Order Comment: Speci men Type: BLOOD SPECIMEN Ordering Facility: [facility] Address: [address] [place] [address] Performed By: #### 2 4362-6 #### [facility] CLIA [id number] [address] [place] [address] [place] Platelet mean volume (Bld) [Entitic vol] 10.8 fL Normal 9.0-12.[address] [facility] Comment on above: Order Comment: Speci men Type: BLOOD SPECIMEN Ordering [facility] Address: [address] [place] [address] Performed By: #### 2 4362-6 #### [facility] CLIA [id number] [address] [place] [address] [place] Platelets (Bld) [#/Vol] 315 10*3/uL Normal 150-[address] [facility] Comment on above: Order Comment: Speci men Type: BLOOD SPECIMEN Order[facility] Address: [address] [place] [address] Performed By: #### 2 4362-6 #### [facility] CLIA [id number] [address] [place] [address] [place] RBC (Bld) [#/Vol] 3.37 10*6/uL Low 3.90-5.20 [facility] Comment on above: Order Comment: Speci men Type: BLOOD SPECIMEN Ordering Facility[facility] Address: [address] [place] [address] Performed By: #### 2 4362-6 #### [facility] CLIA [id number] [address] [place] [address] [place] WBC (Bld) [#/Vol] 4.96 10*3/uL Normal 3.70-11.00 [facility] Comment on above: Order Comment: Speci men Type: BLOOD SPECIMEN Ordering Facility: [facility] Address: [address] [place] [address] Performed By: #### 2 4362-6 #### [facility] CLIA [id number] [address] [place] [address] [place] Basic metabolic 2000 panelon 06-21-2024 Anion gap [Moles/Vol] 12 mmol/L 8 - 15 mmol/L [facility] Calcium [Mass/Vol] 9.3 mg/dL 8.5 - 10. 2 mg/dL [facility] Chloride [Moles/Vol] 108 mmol/L High 98 - 10 7 mmol/L [facility] CO2 [Moles/Vol] 21 mmol/L Low 22 - 30 mmol/L [facility] Creatinine [Mass/Vol] 0.92 mg/dL 0.58 - 0.96 mg/dL [facility] GFR/1.73 sq M.predicted among non-blacks MDRD (S/P/Bld) [Vol rate/Area] 62 mL/min/{1.73_m2} - PINF [facility] Comment on above: Estimated Glomerular Filtration Rate [...] 101 mg/dL High 74 - 99 mg/dL [facility] Comment on above: The [place] Diab[employer] Association (ADA) provides guidance for [...] Standards of Medical Care in Diabetes 2016, [place] [employer]. Diabetes Care. 2016.39(Suppl 1). Interpretation and review of laboratory results Abnormal [facility] Potassium [Moles/Vol] 4.6 mmol/L 3.7 - 5.1 mmol/L [facility] Sodium [Moles/Vol] 141 mmol/L 136 - 144 mmol/L [facility] Urea nitrogen [Mass/Vol] 22 mg/dL High 7 - 21 mg/dL [facility] Anion gap [Moles/Vol] 12 mmol/L Normal 8-15 [facility] Comment on above: Order Comment: Rhina mason Type: BLOOD SPECIMEN Ordering Facility: [facility] Address: [address] [place] [address] Performed By: #### 2 4362-6 #### [facility] CLIA [id number] [address] [place] [address] [place] Calcium [Mass/Vol] 9.3 mg/dL Normal 8.5-10.2 [facility] Comment on above: Order Comment: Rhina mason Type: BLOOD SPECIMEN Ordering Facility: [facility] Address: [address] [place] [address] Performed By: #### 2 4362-6 #### [facility] CLIA [id number] [address] [place] [address] [place] Chloride [Moles/Vol] 108 mmol/L High 98-107 [facility] Comment on above: Order Comment: Speci men Type: BLOOD SPECIMEN Ordering Facility: [facility] Address: [address] [place] [address] Performed By: #### 2 4362-6 #### [facility] CLIA [id number] [address] [place] [address] [place] CO2 [Moles/Vol] 21 mmol/L Low 22-[address] [facility] Comment on above: Order Comment: Speci men Type: BLOOD SPECIMEN Ordering Facility: [facility] Address: [address] [place] [address] Performed By: #### 2 4362-6 #### [facility] CLIA [id number] [address] [place] [address] [place] Creatinine [Mass/Vol] 0.92 mg/dL Normal 0.58-0.96 [facility] Comment on above: Order Comment: Speci men Type: BLOOD SPECIMEN Ordering Facility: [facility] Address: [address] [place] [address] Performed By: #### 2 4362-6 #### [facility] CLIA [id number] [address] [place] [address] [place] Creatinine and Glomerular filtration rate.predicted panel (S/P/Bld) 62 mL/min/1.73m??? Normal >=[address] [facility] Comment on above: Order Comment: Speci men Type: BLOOD SPECIMEN Ordering Facility: [facility] Address: [address] [place] [address] Result Comment: Isa mated Glomerular Filtration Rate [...] GFR. Performed By: #### 2 4362-6 #### [facility] CLIA [id number] [address] [place] [address] [place] Glucose [Mass/Vol] 101 mg/dL High 74-99 [facility] Comment on above: Order Comment: Speci men Type: BLOOD SPECIMEN Ordering Facility: [facility] Address: [address] [place] [address] Result Comment: The [place] Diabetes Association (ADA) provides guidance for cutoff [...] Standards of Medical Care in Diabetes 2016, [place] [employer]. Diabetes Care. 2016.39(Suppl 1). Performed By: #### 2 4362-6 #### [facility] CLIA [id number] [address] [place] [address] [place] Potassium [Moles/Vol] 4.6 mmol/L Normal 3.7-5.1 [facility] Comment on above: Order Comment: Speci men Type: BLOOD SPECIMEN Ordering Facility: [facility] Address: [address] [place] [address] Performed By: #### 2 4362-6 #### [facility] CLIA [id number] [address] [place] [address] [place] Sodium [Moles/Vol] 141 mmol/L Normal 136-144 [facility] Comment on above: Order Comment: Speci men Type: BLOOD SPECIMEN Ordering Facility: [facility] Address: [address] [place] [address] Performed By: #### 2 4362-6 #### [facility] CLIA [id number] [address] [place] [address] [place] Urea nitrogen [Mass/Vol] 22 mg/dL High 7-[address] [facility] Comment on above: Order Comment: Speci men Type: BLOOD SPECIMEN Ordering Facility: [facility] Address: [address] [place] [address] Performed By: #### 2 4362-6 #### [facility] CLIA [id number] [address] [place] [address] [place] CBC panel Auto (Bld)on 06-21 Erythrocyte distribution width (RBC) [Ratio] 15.8 % High 11.5 - 15.0 % [facility] Hematocrit (Bld) [Volume fraction] 34.2 % Low 36.0 - 46.0 % [facility] Hemoglobin (Bld) [Mass/Vol] 10.6 g/dL Low 11.5 - 15.5 g/dL [facility] Interpretation and review of laboratory results Abnormal [facility] MCH (RBC) [Entitic mass] 26.4 pg 26.0 - 34.0 pg [facility] MCHC (RBC) [Mass/Vol] 31.0 g/dL 30.5 - 36.0 g/dL [facility] MCV (RBC) [Entitic vol] 85.3 fL 80.0 - 100.0 fL [facility] Nucleated RBC (Bld) [#/Vol] NINF [facility] Platelet mean volume (Bld) [Entitic vol] 10.7 fL 9.0 - 12.7 fL [facility] Platelets (Bld) [#/Vol] 300 10*3/uL [facility] RBC (Bld) [#/Vol] 4.01 10*6/uL 3.90 - 5.2 0 m/uL [facility] WBC (Bld) [#/Vol] 5.52 10*3/uL [facility] Erythrocyte distribution width (RBC) [Ratio] 15.8 % High 11.5-15.[address] [facility] Comment on above: Order Comment: Speci men Type: BLOOD SPECIMEN Ordering Facility: [facility] Address: [address] [place] [address] Performed By: #### 2 [id number] #### [place] [facility] CLIA [id number] [address] [place] [address] [place] Hematocrit (Bld) [Volume fraction] 34.2 % Low 36.0-46.[address] [facility] Comment on above: Order Comment: Speci men Type: BLOOD SPECIMEN Ordering Facility: [facility] Address: [address] [place] [address] Performed By: #### 2 4362-6 #### [facility] CLIA [id number] [address] [place] [address] [place] Hemoglobin (Bld) [Mass/Vol] 10.6 g/dL Low 11.5-15.[address] [facility] Comment on above: Order Comment: Speci men Type: BLOOD SPECIMEN Ordering Facility: [facility] Address: [address] [place] [address] Performed By: #### 2 4362-6 #### [facility] CLIA [id number] [address] [place] [address] [place] MCH (RBC) [Entitic mass] 26.4 pg Normal 26.0-34.[address] [facility] Comment on above: Order Comment: Speci men Type: BLOOD SPECIMEN Ordering Facility: [facility] Address: [address] [place] [address] Performed By: #### 2 4362-6 #### [facility] CLIA [id number] [address] [place] [address] [place] MCHC (RBC) [Mass/Vol] 31.0 g/dL Normal 30.5-36.0 [facility] Comment on above: Order Comment: Speci men Type: BLOOD SPECIMEN Ordering Facility: [facility] Address: [address] [place] [address] Performed By: #### 2 4362-6 #### [facility] CLIA [id number] [address] [place] [address] [place] MCV (RBC) [Entitic vol] 85.3 fL Normal 80.0-100.0 [facility] Comment on above: Order Comment: Speci men Type: BLOOD SPECIMEN Ordering Facility: [facility] Address: [address] [place] [address] Performed By: #### 2 4362-6 #### [facility] CLIA [id number] [address] [place] [address] [place] Nucleated RBC (Bld) [#/Vol] 10*3/uL Normal <0.[address] [facility] Comment on above: Order Comment: Speci men Type: BLOOD SPECIMEN Ordering Facility: [facility] Address: [address] [place] [address] Performed By: #### 2 4362-6 #### [facility] CLIA [id number] [address] [place] [address] [place] Platelet mean volume (Bld) [Entitic vol] 10.7 fL Normal 9.0-12.[address] [facility] Comment on above: Order Comment: Speci men Type: BLOOD SPECIMEN Ordering Facility: [facility] Address: [address] [place] [address] Performed By: #### 2 4362-6 #### [facility] CLIA [id number] [address] [place] [address] [place] Platelets (Bld) [#/Vol] 300 10*3/uL Normal 150-[address] [facility] Comment on above: Order Comment: Speci men Type: BLOOD SPECIMEN Ordering Facility: [facility] Address: [address] [place] [address] Performed By: #### 2 4362-6 #### [facility] CLIA [id number] [address] [place] [address] [place] RBC (Bld) [#/Vol] 4.01 10*6/uL Normal 3.90-5.20 [facility] Comment on above: Order Comment: Speci men Type: BLOOD SPECIMEN Ordering Facility: [facility] Address: [address] [place] [address] Performed By: #### 2 4362-6 #### [facility] CLIA [id number] [address] [place] [address] [place] WBC (Bld) [#/Vol] 5.52 10*3/uL Normal 3.70-11.00 [facility] Comment on above: Order Comment: Speci men Type: BLOOD SPECIMEN Ordering Facility: [facility] Address: [address] [place] [address] Performed By: #### 2 4362-6 #### [facility] CLIA [id number] [address] [place] [address] [place] Basic metabolic 2000 panelon 06-19-2024 Anion gap [Moles/Vol] 10 mmol/L Normal 8-15 [facility] Comment on above: Order Comment: Speci men Type: BLOOD SPECIMEN Ordering Facility: [facility] Address: [address] [place] [address] Performed By: #### 2 4321-2, 31829-1, #### [facility] CLIA [id number] [address] [place] [address] [place] Calcium [Mass/Vol] 8.9 mg/dL Normal 8.5-10.2 [facility] Comment on above: Order Comment: Speci men Type: BLOOD SPECIMEN Ordering Facility: [facility] Address: [address] [place] [address] Performed By: #### 2 4321-2, 91619-5, 67163-5 #### [facility] CLIA [id number] [address] [place] [address] [place] Chloride [Moles/Vol] 109 mmol/L High 98-107 [facility] Comment on above: Order Comment: Speci men Type: BLOOD SPECIMEN Ordering Facility: [facility] Address: [address] [place] [address] Performed By: #### 2 4321-2, 36732-3, #### [facility] CLIA [id number] [address] [place] [address] [place] CO2 [Moles/Vol] 21 mmol/L Low 22-30 [facility] Comment on above: Order Comment: Speci men Type: BLOOD SPECIMEN Ordering Facility: [facility] Address: [address] [place] [address] Performed By: #### 2 4321-2, 09931-0, #### [facility] CLIA [id number] [address] [place] Creatinine [Mass/Vol] 1.04 mg/dL High 0.58-0.96 [facility] Comment on above: Order Comment: Speci men Type: BLOOD SPECIMEN Ordering Facility: [facility] Address: [address] [place] [address] Performed By: #### 2 4320-2, 04697-3, #### [facility] CLIA [id number] [address] OF [facility] Creatinine and Glomerular filtration rate.predicted panel (S/P/Bld) 53 mL/min/1.73m??? Low >=60 [facility] Comment on above: Order Comment: Speci men Type: BLOOD SPECIMEN Ordering Facility: [facility] Address: [address] [place] [address] Result Comment: Isa mated Glomerular Filtration Rate [...] actual GFR. Performed By: #### 2 4321-2, 61224-5, #### [facility] CLIA [id number] [address] [place] Glucose [Mass/Vol] 103 mg/dL High 74-99 [facility] Comment on above: Order Comment: Speci men Type: BLOOD SPECIMEN Ordering Facility: [facility] Address: [address] [id number] Result Comment: The [place] [employer] Association (ADA) provides guidance for cutoff [...] Standards of Medical Care in Diabetes 2016, [place] [employer]. Diabetes Care. 2016.39(Suppl 1). Performed By: #### 2 4321-2, 39991-7, #### [employer] [facility] CLIA [id number] [address] [place] [address] [place] Potassium [Moles/Vol] 4.8 mmol/L Normal 3.7-5.1 [facility] Comment on above: Order Comment: Rhina men Type: BLOOD SPECIMEN Ordering Facility: [facility] Address: [address] [place] [address] Performed By: #### 2 4321-2, 96180-1, #### [employer] [facility] CLIA [id number] [address] [place] [address] [place] Sodium [Moles/Vol] 140 mmol/L Normal 136-144 [facility] Comment on above: Order Comment: Rhina men Type: BLOOD SPECIMEN Ordering Facility: [facility] Address: [address] [place] [address] Performed By: #### 2 4321-2, 59635-6, #### [employer] [facility] CLIA [id number] [address] [place] [address] [place] Urea nitrogen [Mass/Vol] 25 mg/dL High 7-21 [facility] Comment on above: Order Comment: Samiri men Type: BLOOD SPECIMEN Ordering Facility: [facility] Address: [address] [place] [address] Performed By: #### 2 4321-2, 31030-6, #### [facility] CLIA [id number] [address] CBC panel Auto (Bld)on 06-19 Erythrocyte distribution width (RBC) [Ratio] 15.9 % High 11.5-15.0 [facility] Comment on above: Order Comment: Speci men Type: BLOOD SPECIMEN Ordering Facility: [facility] Address: [address] [place] [address] Performed By: #### 2 4321-2, 20454-6, #### [employer] [facility] CLIA [id number] [address] Hematocrit (Bld) [Volume fraction] 30.6 % Low 36.0-46.0 [facility] Comment on above: Order Comment: Speci men Type: BLOOD SPECIMEN Ordering Facility: [facility] Address: [address] [place] [address] Performed By: #### 2 4321-2, 93207-9, #### [facility] CLIA [id number] [address] Hemoglobin (Bld) [Mass/Vol] 9.5 g/dL Low 11.5-15.5 [facility] Comment on above: Order Comment: Speci men Type: BLOOD SPECIMEN Ordering Facility: [facility] Address: [address] [place] [address] Performed By: #### 2 4321-2, 47909-8, #### [facility] [facility] CLIA [id number] [address] MCH (RBC) [Entitic mass] 26.5 pg Normal 26.0-34.0 [facility] Comment on above: Order Comment: Speci men Type: BLOOD SPECIMEN Ordering Facility: [facility] Address: [address] [place] [address] Performed By: #### 2 4321-2, 69533-4, #### [facility] CLIA [id number] [address] MCHC (RBC) [Mass/Vol] 31.0 g/dL Normal 30.5-36.0 [facility] Comment on above: Order Comment: Speci men Type: BLOOD SPECIMEN Ordering Facility: [facility] Address: [address] [place] [address] Performed By: #### 2 4321-2, 19151-1, #### [facility] CLIA [id number] [address] MCV (RBC) [Entitic vol] 85.5 fL Normal 80.0-100.0 [facility] Comment on above: Order Comment: Speci men Type: BLOOD SPECIMEN Ordering Facility: [facility] Address: [address] [place] [address] Performed By: #### 2 4320-2, 51184-4, #### [facility] CLIA [id number] [address] Nucleated RBC (Bld) [#/Vol] 10*3/uL Normal <0.01 [facility] Comment on above: Order Comment: Speci men Type: BLOOD SPECIMEN Ordering Facility: [facility] Address: [address] [place] [address] Performed By: #### 2 4320-2, 07865-8, #### [facility] CLIA [id number] [address] Platelet mean volume (Bld) [Entitic vol] 10.4 fL Normal 9.0-12.7 [facility] Comment on above: Order Comment: Speci men Type: BLOOD SPECIMEN Ordering Facility: [facility] Address: [address] [place] [address] Performed By: #### 2 4321-2, 41296-8, #### [facility] CLIA [id number] [address] OF [facility] Platelets (Bld) [#/Vol] 245 10*3/uL Normal 150-400 [facility] Comment on above: Order Comment: Rhina mason Type: BLOOD SPECIMEN Ordering Facility: [facility] Address: [address] [place] [address] Performed By: #### 2 4321-2, 19484-9, 47978-6 #### [facility] CLIA [id number] [address] [place] RBC (Bld) [#/Vol] 3.58 10*6/uL Low 3.90-5.20 [facility] Comment on above: Order Comment: Rhina mason Type: BLOOD SPECIMEN Ordering Facility: [facility] Address: [address] [place] [address] Performed By: #### 2 4321-2, 56525-7, 66391-6 #### [facility] CLIA [id number] [address] OF [facility] WBC (Bld) [#/Vol] 4.67 10*3/uL Normal 3.70-11.00 [facility] Comment on above: Order Comment: Rhina mason Type: BLOOD SPECIMEN Ordering Facility: [facility] Address: [address] [place] [address] Performed By: #### 2 4321-2, 85108-9, 29156-6 #### [facility] CLIA [id number] [address] [place] [address] OF [facility] CNDSon 06-19-2024 CNDS HNO ID: [id number] Author: DON EDWARDS DO Service: Hospital Medicine [...] Edwards DO Primary Care Provider: Jared Evans MD, MD My Medical Team Members: Treatment Team: Attending Provider: Don Edwards DO Consulting: Pratibha Logan MD Consulting: Torsten Silva MD Primary Service: BLAS ALVAREZ MY CONDITION [...] eliquis. She was seen by therapy and longterm facility was recommended. He slowly was improving. She was discharged to longterm facility in stable condition. OTHER PROBLEMS/DIAGNOSIS: Principal [...] call for appointment?: Yes Jared Evans MD [phone] [address] [facility] [address] PCP Requested Referral Follow-Up Appointment When: In 2 weeks Patient/Parents to call for appointment?: Yes Hermila Padilla MD [phone] [place] [address] PCP Requested Referral Follow-Up Appointment For hydronephrosis and renal lesion When: In 2 weeks Patient/Parents to call for appointment?: Yes Mikhail Vuong Jr., MD [phone] [address] [facility] [address] PCP Requested Referral Follow-Up Appointment With: neurology When: In 4 weeks Patient/Parents to call for appointment?: Yes Additional Provider to Provider Information: Treatment Team: Attending Provider: Don Edwards DO Consulting: Pratibha Logan MD Consulting: Torsten Silva MD Primary Service: BLAS ALVAREZ [facility] Critical Issues: SPECIALIST FOLLOW-UP: urology, cardiology, neurology LABS AND PROCEDURES PENDING AT DISCHARGE: No pending results. FOLLOW-UP APPOINTMENTS ALREADY SCHEDULED WITH A [facility] PROVIDER: No future appointments. Discharge Information Row Name ED to Hosp-Admission (Current) from 06/10/2024 in [place] NEURO/CARD Rehab Facility Agency [facility] - Taylor Patiño ALLERGIES Allergen Reactions Percocet [Oxycodone* Itching DISCHARGE MEDICA (more content not included)... Normal [facility] Basic metabolic 2000 panelon 06-18-2024 Anion gap [Moles/Vol] 10 mmol/L Normal 8-15 [facility] Comment on above: Order Comment: Speci men Type: BLOOD SPECIMEN Ordering Facility: [facility] Address: [address] [place] [address] Performed By: #### 2 4321-2, 57550-1, 01435-1 #### [facility] CLIA [id number] [address] [place] [address] [place] Calcium [Mass/Vol] 8.9 mg/dL Normal 8.5-10.2 [facility] Comment on above: Order Comment: Speci men Type: BLOOD SPECIMEN Ordering Facility: [facility] Address: [address] [place] [address] Performed By: #### 2 4321-2, 46726-1, #### [facility] CLIA [id number] [address] [place] Chloride [Moles/Vol] 110 mmol/L High 98-107 [facility] Comment on above: Order Comment: Speci men Type: BLOOD SPECIMEN Ordering Facility: [facility] Address: [address] [place] [address] Performed By: #### 2 4321-2, 12604-8, #### [facility] CLIA [id number] [address] [place] CO2 [Moles/Vol] 21 mmol/L Low 22-30 [facility] Comment on above: Order Comment: Speci men Type: BLOOD SPECIMEN Ordering Facility: [facility] Address: [address] [place] [address] Performed By: #### 2 4321-2, 58362-3, #### [facility] CLIA [id number] [address] [place] Creatinine [Mass/Vol] 0.96 mg/dL Normal 0.58-0.96 [facility] Comment on above: Order Comment: Speci men Type: BLOOD SPECIMEN Ordering Facility: [facility] Address: [address] [place] [address] Performed By: #### 2 4321-2, 02865-7, #### [facility] CLIA [id number] [address] [place] Creatinine and Glomerular filtration rate.predicted panel (S/P/Bld) 58 mL/min/1.73m??? Low >=60 [facility] Comment on above: Order Comment: Rhina mason Type: BLOOD SPECIMEN Ordering Facility: [facility] Address: [address] [place] [address] Result Comment: Isa mated Glomerular Filtration Rate [...] actual GFR. Performed By: #### 2 4321-2, 34514-7, #### [facility] CLIA [id number] [address] [place] [address] [place] Glucose [Mass/Vol] 112 mg/dL High 74-99 [facility] Comment on above: Order Comment: Rhina mason Type: BLOOD SPECIMEN Ordering Facility: [facility] Address: [address] [place] [address] Result Comment: The [place] Diabetes Association (ADA) provides guidance for cutoff [...] Standards of Medical Care in Diabetes 2016, [place] [employer]. Diabetes Care. 2016.39(Suppl 1). Performed By: #### 2 4321-2, 46942-3, #### [facility] CLIA [id number] [address] [place] [address] [place] Potassium [Moles/Vol] 4.4 mmol/L Normal 3.7-5.1 [facility] Comment on above: Order Comment: Rhina mason Type: BLOOD SPECIMEN Ordering Facility: [facility] Address: [address] [place] [address] Performed By: #### 2 4321-2, 72527-9, #### [facility] CLIA [id number] [address] Sodium [Moles/Vol] 141 mmol/L Normal 136-144 [facility] Comment on above: Order Comment: Speci men Type: BLOOD SPECIMEN Ordering Facility[facility] Address: [address] [place] [address] Performed By: #### 2 4321-2, 33489-6, #### [facility] CLIA [id number] [address] [place] Urea nitrogen [Mass/Vol] 22 mg/dL High 7-21 [facility] Comment on above: Order Comment: Speci men Type: BLOOD SPECIMEN Ordering Facility: [facility] Address: [address] [place] [address] Performed By: #### 2 4321-2, 51577-1, #### [facility] CLIA [id number] [address] OF [facility] CBC panel Auto (Bld)on 06-18 Erythrocyte distribution width (RBC) [Ratio] 15.9 % High 11.5-15.0 [facility] Comment on above: Order Comment: Speci men Type: BLOOD SPECIMENOrdering Facility: [facility] Address: [address] [place] [address] Performed By: #### 5 8410-2 ####[facility] [id number] [address] [place] Hematocrit (Bld) [Volume fraction] 34.3 % Low 36.0-46.0 [facility] Comment on above: Order Comment: Speci men Type: BLOOD SPECIMENOrdering Facility: [facility] Address: [address] [place] [address] Performed By: #### 5 8410-2 ####[facility] [id number] [address] Hemoglobin (Bld) [Mass/Vol] 10.7 g/dL Low 11.5-15.5 [facility] Comment on above: Order Comment: Speci men Type: BLOOD SPECIMENOrdering Facility: [facility] Address: [address] [place] [address] Performed By: #### 5 8410-2 ####[facility] [id number] [address] MCH (RBC) [Entitic mass] 26.7 pg Normal 26.0-34.0 [facility] Comment on above: Order Comment: Speci men Type: BLOOD SPECIMENOrdering Facility: [facility] Address: [address] [place] [address] Performed By: #### 5 8410-2 ####[facility]IA [id number] [address] MCHC (RBC) [Mass/Vol] 31.2 g/dL Normal 30.5-36.0 [facility] Comment on above: Order Comment: Speci men Type: BLOOD SPECIMENOrdering Facility: [facility] Address: [address] [place] [address] Performed By: #### 5 8410-2 ####[facility]IA [id number] [address] MCV (RBC) [Entitic vol] 85.5 fL Normal 80.0-100.0 [facility] Comment on above: Order Comment: Speci men Type: BLOOD SPECIMENOrdering Facility: [facility] Address: [address] [place] [address] Performed By: #### 5 8410-2 ####[facility]IA [id number] [address] Nucleated RBC (Bld) [#/Vol] 10*3/uL Normal <0.01 [facility] Comment on above: Order Comment: Speci men Type: BLOOD SPECIMENOrdering Facility: [facility] Address: [address] [place] [address] Performed By: #### 5 8410-2 ####[facility]CLIA [id number] [address] [place] [facility] Platelet mean volume (Bld) [Entitic vol] 10.0 fL Normal 9.0-12.7 [facility] Comment on above: Order Comment: Speci men Type: BLOOD SPECIMENOrdering Facility: [facility] Address: [address] [place] [address] Performed By: #### 5 8410-2 ####[facility]IA [id number] [address] [place] Platelets (Bld) [#/Vol] 273 10*3/uL Normal 150-400 [facility] Comment on above: Order Comment: Speci men Type: BLOOD SPECIMENOrdering Facility: [facility] Address: [address] [place] [address] Performed By: #### 5 8410-2 ####[facility]ORYCLIA [id number] [place] [address] [place] RBC (Bld) [#/Vol] 4.01 10*6/uL Normal 3.90-5.20 [facility] Comment on above: Order Comment: Speci men Type: BLOOD SPECIMENOrdering Facility: [facility] Address: [address] [place] [address] Performed By: #### 5 8410-2 ####[facility]ORYCLIA [id number] [place] [address] [place] WBC (Bld) [#/Vol] 5.29 10*3/uL Normal 3.70-11.00 [facility] Comment on above: Order Comment: Speci men Type: BLOOD SPECIMENOrdering Facility: [facility] Address: [address] [place] [address] Performed By: #### 5 8410-2 ####[facility]ORYCLIA [id number] [address] [place] Hepatic function 2000 panelo n 06-18-2024 Albumin [Mass/Vol] 3.5 g/dL Low 3.9-4.9 [facility] Comment on above: Order Comment: Speci men Type: BLOOD SPECIMEN Ordering Facility[facility] Address: [address] [place] [address] Performed By: #### 2 4321-2, 38614-0, #### [facility] CLIA [id number] [address] ALP [Catalytic activity/Vol] 80 U/L Normal 34-123 [facility] Comment on above: Order Comment: Speci men Type: BLOOD SPECIMEN Ordering Facility[facility] Address: [address] [place] [address] Performed By: #### 2 4321-2, 51271-3, #### [facility] CLIA [id number] [address] OF [facility] ALT With P-5'-P [Catalytic activity/Vol] 16 U/L Normal 7-38 [facility] Comment on above: Order Comment: Speci men Type: BLOOD SPECIMEN Ordering Facility[facility] Address: [address] [place] [address] Performed By: #### 2 4321-2, 37363-1, #### [facility] CLIA [id number] [address] AST With P-5'-P [Catalytic activity/Vol] 20 U/L Normal 13-35 [facility] Comment on above: Order Comment: Speci men Type: BLOOD SPECIMEN Ordering [facility] Address: [address] [place] [address] Performed By: #### 2 4321-2, 83896-2, #### [facility] CLIA [id number] [address] OF [facility] Bilirubin [Mass/Vol] 0.3 mg/dL Normal 0.2-1.3 [facility] Comment on above: Order Comment: Speci men Type: BLOOD SPECIMEN Ordering Facility: [facility] Address: [address] [place], [place] [address] Performed By: #### 2 4321-2, 70568-9, #### [facility] CLIA [id number] [address] STATES OF [facility] Bilirubin.conjugated [Mass/Vol] mg/dL Normal <0.2 [facility] Comment on above: Order Comment: Speci men Type: BLOOD SPECIMEN Ordering Facility: [facility] Address: [address] [place] [address] Performed By: #### 2 4321-2, 25871-8, #### [facility] CLIA [id number] [address] OF [facility] Protein [Mass/Vol] 6.0 g/dL Low 6.3-8.0 [facility] Comment on above: Order Comment: Speci men Type: BLOOD SPECIMEN Ordering Facility: [facility] Address: [address] [place] [address] Performed By: #### 2 4321-2, 44099-0, #### [facility] CLIA [id number] [address] [place] Magnesium SerPl-mCncon 06-18 Magnesium [Mass/Vol] 1.9 mg/dL Normal 1.7-2.3 [facility] Comment on above: Order Comment: Speci men Type: BLOOD SPECIMEN Ordering Facility: [facility] Address: [address] [place] [address] Performed By: #### 2 4321-2, 11540-7, #### [facility] CLIA [id number] [address] [place] NUTRITIONon 06-18-2024 NUTRITION HNO ID: [id number] Author: NELSON AVIL[address] Service: Nutrition Therapy [...] Obtained From: Patient 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; 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) MNT Billing: $ Initial Assessment: 1-15 minutes SIGNATURE: Nelson Avila RD PATIENT NAME: Mel Castillo DATE: June 18, 2024 TIME: 11:18 AM Normal [facility] THERAPY NTon 06-18-2024 THERAPY NT HNO ID: [id number] Author: SELENA BARR, PT Service: Physical Therapy Author Type: Physical Therapist Type: Therapy (PT/OT/Speech/Resp) Filed: 06/18/2024 12:53 Note Text: Physical Therapy Treatment Summary SERVICE DATE: 06/18/2024 SERVICE TIME: 1056 to 1129 ROOM: [id number] PT 6 Clicks Score: 16 DISCHARGE RECOMMENDATIONS [...] Lack of coordination-other TREATMENT INTERVENTIONS Therapeutic Activity (39778) Therapeutic Activity (58375) Treatment Minutes: 25 $ Therapeutic Activity (73614) Billed Units: 2 units Timed Code Treatment [...] (more content not included)... Normal [facility] THERAPY NT HNO ID: [id number] Author: NAKIA JEFFERSON OTR/L Service: Occupational Therapy Author Type: Occupational Therapist Type: Therapy (PT/OT/Speech/Resp) Filed: 06/18/2024 13:34 Note Text: Occupational Therapy Treatment Summary SERVICE DATE: 06/18/2024 SERVICE TIME: 1130 to 1154 ROOM: [place] [address] OT 6 Clicks Score: 15 DISCHARGE RECOMMENDATIONS [...] General symptoms and signs-other TREATMENT INTERVENTIONS Self Assisted Management (82166), Cognitive Training (17824 and 79225) Timed Code Treatment (minutes): 24 Skilled Treatment Time (minutes): 24 Self Assisted Management (11444) Treatment Minutes: 11 $ Self Assisted Management (91431) Billed Units: 1 unit Minimal assist with meal set-up. Cueing for physical assist with maintaining functional grasp on packaging to tear open. Pt demonstrated impaired hand-eye coordination/visual spatial awareness with bringing food to mouth. Provided further cueing and tactile awareness/sequencing to maximize ease with self feeding. Cognitive Training First 15 Minutes (39982) : 13 $ Cognitive Training First 15 Minutes (19127) Billed Units: 1 unit Facilitated completion of [facility] Mental Examination (SLUMS) to screen performance with orientation, memory, attention, [...] Occupational Therapy, Safety/Judgment, Sitting Balance to Improve [place] with ADLs/Self-Care, Cognitive Skills, Command Following, Expected Functional Level, Feeding Tasks, Low Vision Strategies, Positioning, Visual Scanning/Attention Activities THERAPEUTIC SKILLS USED Activity Dosing, Cues for (more content not included)... Normal [facility] CBC panel Auto (Bld)on 06-17 Erythrocyte distribution width (RBC) [Ratio] 15.7 % High 11.5-15.0 [facility] Comment on above: Order Comment: Rhina mason Type: BLOOD SPECIMEN Ordering Facility: [facility] Address: [address] [place] [address] Performed By: #### 2 4321-2, 56326-9, #### [facility] CLIA [id number] 1 [place] [address] [place] Hematocrit (Bld) [Volume fraction] 35.1 % Low 36.0-46.0 [facility] Comment on above: Order Comment: Rhina mason Type: BLOOD SPECIMEN Ordering Facility: [facility] Address: [address] [place] [address] Performed By: #### 2 4321-2, 60761-5, #### [facility] CLIA [id number] 1 [place] [address] [place] Hemoglobin (Bld) [Mass/Vol] 11.0 g/dL Low 11.5-15.5 [facility] Comment on above: Order Comment: Speci men Type: BLOOD SPECIMEN Ordering Facility: [facility] Address: [address] [place] [address] Performed By: #### 2 4321-2, 19489-0, #### [facility] CLIA [id number] [address] MCH (RBC) [Entitic mass] 26.4 pg Normal 26.0-34.0 [facility] Comment on above: Order Comment: Speci men Type: BLOOD SPECIMEN Ordering Facility: [facility] Address: [address] [place] [address] Performed By: #### 2 1-2, 39837-6, #### [facility] CLIA [id number] [address] MCHC (RBC) [Mass/Vol] 31.3 g/dL Normal 30.5-36.0 [facility] Comment on above: Order Comment: Speci men Type: BLOOD SPECIMEN Ordering Facility: [facility] Address: [address] [place] [address] Performed By: #### 2 4320-2, 82174-5, #### [facility] CLIA [id number] [address] MCV (RBC) [Entitic vol] 84.4 fL Normal 80.0-100.0 [facility] Comment on above: Order Comment: Speci men Type: BLOOD SPECIMEN Ordering Facility: [facility] Address: [address] [place] [address] Performed By: #### 2 1-2, 90485-0, #### [facility] CLIA [id number] [address] Nucleated RBC (Bld) [#/Vol] 10*3/uL Normal <0.01 [facility] Comment on above: Order Comment: Speci men Type: BLOOD SPECIMEN Ordering Facility: [facility] Address: [address] [place] [address] Performed By: #### 2 4321-2, 27563-4, #### [facility] CLIA [id number] [address] [place] Platelet mean volume (Bld) [Entitic vol] 10.1 fL Normal 9.0-12.7 [facility] Comment on above: Order Comment: Speci men Type: BLOOD SPECIMEN Ordering Facility: [facility] Address: [address] [place] [address] Performed By: #### 2 4321-2, 59779-8, #### [facility] CLIA [id number] [address] [place] Platelets (Bld) [#/Vol] 294 10*3/uL Normal 150-400 [facility] Comment on above: Order Comment: Speci men Type: BLOOD SPECIMEN Ordering Facility: [facility] Address: [address] [place] [address] Performed By: #### 2 4321-2, 36997-5, #### [facility] CLIA [id number] 1 [place] [address] [place] RBC (Bld) [#/Vol] 4.16 10*6/uL Normal 3.90-5.20 [facility] Comment on above: Order Comment: Speci men Type: BLOOD SPECIMEN Ordering Facility: [facility] Address: [address] [place] [address] Performed By: #### 2 4321-2, 52941-9, #### [facility] CLIA [id number] 1 [place] [address] [place] WBC (Bld) [#/Vol] 5.63 10*3/uL Normal 3.70-11.00 [facility] Comment on above: Order Comment: Speci men Type: BLOOD SPECIMEN Ordering Facility: [facility] Address: [address] [place] [address] Performed By: #### 2 4321-2, 62595-6, #### [facility] CLIA [id number] [address] OF [facility] CBC panel Auto (Bld)on 06-16 Erythrocyte distribution width (RBC) [Ratio] 15.4 % High 11.5-15.0 [facility] Comment on above: Order Comment: Speci men Type: BLOOD SPECIMEN Ordering Facility: [facility] Address: [address] [place] [address] Performed By: #### 2 4321-2, 61651-2, #### [facility] CLIA [id number] [address] STATES OF [facility] Hematocrit (Bld) [Volume fraction] 34.9 % Low 36.0-46.0 [facility] Comment on above: Order Comment: Speci men Type: BLOOD SPECIMEN Ordering Facility: [facility] Address: [address] [place] [address] Performed By: #### 2 4321-2, 79899-2, #### [facility] CLIA [id number] [address] [place] Hemoglobin (Bld) [Mass/Vol] 10.9 g/dL Low 11.5-15.5 [facility] Comment on above: Order Comment: Speci men Type: BLOOD SPECIMEN Ordering Facility: [facility] Address: [address] [place] [address] Performed By: #### 2 4321-2, 80262-8, #### [facility] CLIA [id number] [address] [place] MCH (RBC) [Entitic mass] 26.4 pg Normal 26.0-34.0 [facility] Comment on above: Order Comment: Speci men Type: BLOOD SPECIMEN Ordering Facility: [facility] Address: [address] [place] [address] Performed By: #### 2 4321-2, 74610-8, #### [facility] CLIA [id number] [address] OF [facility] MCHC (RBC) [Mass/Vol] 31.2 g/dL Normal 30.5-36.0 [facility] Comment on above: Order Comment: Speci men Type: BLOOD SPECIMEN Ordering Facility: [facility] Address: [address] [place] [address] Performed By: #### 2 4321-2, 15541-2, #### [facility] CLIA [id number] [address] MCV (RBC) [Entitic vol] 84.5 fL Normal 80.0-100.0 [facility] Comment on above: Order Comment: Speci men Type: BLOOD SPECIMEN Ordering Facility: [facility] Address: [address] [place] [address] Performed By: #### 2 4321-2, 44277-6, #### [facility] CLIA [id number] [address] OF [facility] Nucleated RBC (Bld) [#/Vol] 10*3/uL Normal <0.01 [facility] Comment on above: Order Comment: Speci men Type: BLOOD SPECIMEN Ordering Facility: [facility] Address: [address] [place] [address] Performed By: #### 2 4321-2, 31947-2, #### [facility] CLIA [id number] [address] [place] Platelet mean volume (Bld) [Entitic vol] 9.8 fL Normal 9.0-12.7 [facility] Comment on above: Order Comment: Speci men Type: BLOOD SPECIMEN Ordering Facility: [facility] Address: [address] [place] [address] Performed By: #### 2 4321-2, 26124-0, #### [facility] CLIA [id number] [address] [place] Platelets (Bld) [#/Vol] 274 10*3/uL Normal 150-400 [facility] Comment on above: Order Comment: Speci men Type: BLOOD SPECIMEN Ordering Facility: [facility] Address: [address] [place] [address] Performed By: #### 2 4321-2, 54163-9, #### [facility] CLIA [id number] [address] OF [facility] RBC (Bld) [#/Vol] 4.13 10*6/uL Normal 3.90-5.20 [facility] Comment on above: Order Comment: Speci men Type: BLOOD SPECIMEN Ordering Facility: [facility] Address: [address] [place] [address] Performed By: #### 2 4321-2, 87399-5, #### [facility] CLIA [id number] [address] WBC (Bld) [#/Vol] 6.06 10*3/uL Normal 3.70-11.00 [facility] Comment on above: Order Comment: Speci men Type: BLOOD SPECIMEN Ordering Facility: [facility] Address: [address] [place] [address] Performed By: #### 2 4321-2, 76280-0, #### [facility] CLIA [id number] [address] CBC panel Auto (Bld)on 06-15 Erythrocyte distribution width (RBC) [Ratio] 15.4 % High 11.5-15.0 [facility] Comment on above: Order Comment: Speci men Type: BLOOD SPECIMEN Ordering Facility: [facility] Address: [address] [place] [address] Performed By: #### 2 4321-2, 49902-4, #### [facility] CLIA [id number] [address] OF [facility] Hematocrit (Bld) [Volume fraction] 33.9 % Low 36.0-46.0 [facility] Comment on above: Order Comment: Speci men Type: BLOOD SPECIMEN Ordering Facility: [facility] Address: [address] [place] [address] Performed By: #### 2 4321-2, 39387-5, #### [facility] CLIA [id number] [address] [place] Hemoglobin (Bld) [Mass/Vol] 10.6 g/dL Low 11.5-15.5 [facility] Comment on above: Order Comment: Speci men Type: BLOOD SPECIMEN Ordering Facility: [facility] Address: [address] [place] [address] Performed By: #### 2 4321-2, 63932-6, #### [facility] CLIA [id number] [address] [place] MCH (RBC) [Entitic mass] 26.2 pg Normal 26.0-34.0 [facility] Comment on above: Order Comment: Speci men Type: BLOOD SPECIMEN Ordering Facility: [facility] Address: [address] [place] [address] Performed By: #### 2 4321-2, 84811-5, #### [facility] CLIA [id number] [address] STATES OF [facility] MCHC (RBC) [Mass/Vol] 31.3 g/dL Normal 30.5-36.0 [facility] Comment on above: Order Comment: Speci men Type: BLOOD SPECIMEN Ordering Facility: [facility] Address: [address] [place] [address] Performed By: #### 2 4321-2, 06029-5, #### [facility] CLIA [id number] [address] [place] OF [facility] MCV (RBC) [Entitic vol] 83.9 fL Normal 80.0-100.0 [facility] Comment on above: Order Comment: Speci men Type: BLOOD SPECIMEN Ordering Facility: [facility] Address: [address] [place] [address] Performed By: #### 2 4321-2, 48404-6, #### [facility] CLIA [id number] [address] [place] Nucleated RBC (Bld) [#/Vol] 10*3/uL Normal <0.01 [facility] Comment on above: Order Comment: Speci men Type: BLOOD SPECIMEN Ordering Facility: [facility] Address: [address] [place] [address] Performed By: #### 2 4321-2, 87869-9, #### [facility] CLIA [id number] [address] [place] Platelet mean volume (Bld) [Entitic vol] 9.9 fL Normal 9.0-12.7 [facility] Comment on above: Order Comment: Speci men Type: BLOOD SPECIMEN Ordering Facility: [facility] Address: [address] [place] [address] Performed By: #### 2 4321-2, 63096-4, #### [facility] CLIA [id number] [address] Platelets (Bld) [#/Vol] 280 10*3/uL Normal 150-400 [facility] Comment on above: Order Comment: Speci men Type: BLOOD SPECIMEN Ordering Facility: [facility] Address: [address] [place] [address] Performed By: #### 2 4321-2, 53894-7, #### [facility] CLIA [id number] [address] [place] RBC (Bld) [#/Vol] 4.04 10*6/uL Normal 3.90-5.20 [facility] Comment on above: Order Comment: Speci men Type: BLOOD SPECIMEN Ordering Facility: [facility] Address: [address] [place] [address] Performed By: #### 2 4321-2, 60359-3, #### [facility] CLIA [id number] 1 [place] [address] [place] WBC (Bld) [#/Vol] 5.80 10*3/uL Normal 3.70-11.00 [facility] Comment on above: Order Comment: Speci men Type: BLOOD SPECIMEN Ordering Facility: [facility] Address: [address] [place] [address] [place] [address] Performed By: #### 2 4321-2, 56544-1, 38728-9 #### [facility] CLIA [id number] 1 [place] [id number] [facility] [place] THERAPY NTon 06-15-2024 THERAPY NT HNO ID: [id number] Author: MEHREEN MANCERA, PT Service: Physical Therapy Author Type: Physical Therapist Type: Therapy (PT/OT/Speech/Resp) Filed: 06/15/2024 16:13 Note Text: Physical Therapy Treatment Summary SERVICE DATE: 06/15/2024 SERVICE TIME: 1518 to 1547 ROOM: [place] [address] PT 6 Clicks Score: 13 DISCHARGE RECOMMENDATIONS [...] Lack of coordination-other TREATMENT INTERVENTIONS Therapeutic Activity (39976), Neuromuscular Reeducation (55294) Timed Code Treatment (minutes): 29 Skilled Treatment Time (minutes): 29 Therapeutic Activity (61344) Treatment Minutes: 10 $ Therapeutic Activity (14105) Billed Units: 1 unit Neuromuscular Reeducation (13501) Treatment Minutes: 19 $ Neuromuscular Reeducation (53235) Billed Units: 1 unit Sitting balance and [...] (more content not included)... Normal [facility] CBC panel Auto (Bld)on 06-14 Erythrocyte distribution width (RBC) [Ratio] 15.5 % High 11.5-15.0 [facility] Comment on above: Order Comment: Speci men Type: BLOOD SPECIMENOrdering Facility: [facility] Address: [address] [place] [address] Performed By: #### 5 8410-2 ####[facility] [id number] [place] [address] [place] Hematocrit (Bld) [Volume fraction] 34.8 % Low 36.0-46.0 [facility] Comment on above: Order Comment: Speci men Type: BLOOD SPECIMENOrdering Facility: [facility] Address: [address] [place] [address] Performed By: #### 5 8410-2 ####[facility] [id number] [place] [address] [place] Hemoglobin (Bld) [Mass/Vol] 11.0 g/dL Low 11.5-15.5 [facility] Comment on above: Order Comment: Speci men Type: BLOOD SPECIMENOrdering Facility: [facility] Address: [address] [place] [address] Performed By: #### 5 8410-2 ####[facility] [id number] [address] MCH (RBC) [Entitic mass] 26.6 pg Normal 26.0-34.0 [facility] Comment on above: Order Comment: Speci men Type: BLOOD SPECIMENOrdering Facility: [facility] Address: [address] [place] [address] Performed By: #### 5 8410-2 ####[facility] [id number] [address] [place] MCHC (RBC) [Mass/Vol] 31.6 g/dL Normal 30.5-36.0 [facility] Comment on above: Order Comment: Speci men Type: BLOOD SPECIMENOrdering Facility: [facility] Address: [address] [place] [address] Performed By: #### 5 8410-2 ####[facility] [id number] [address] MCV (RBC) [Entitic vol] 84.3 fL Normal 80.0-100.0 [facility] Comment on above: Order Comment: Speci men Type: BLOOD SPECIMENOrdering Facility: [facility] Address: [address] [place] [address] Performed By: #### 5 8410-2 ####[facility] [id number] [address] Nucleated RBC (Bld) [#/Vol] 10*3/uL Normal <0.01 [facility] Comment on above: Order Comment: Speci men Type: BLOOD SPECIMENOrdering Facility: [facility] Address: [address] [place] [address] Performed By: #### 5 8410-2 ####[facility] [id number] [address] Platelet mean volume (Bld) [Entitic vol] 9.7 fL Normal 9.0-12.7 [facility] Comment on above: Order Comment: Speci men Type: BLOOD SPECIMENOrdering Facility: [facility] Address: [address] [place] [address] Performed By: #### 5 8410-2 ####[facility] [id number] [place] [id number] [place] Platelets (Bld) [#/Vol] 278 10*3/uL Normal 150-400 [facility] Comment on above: Order Comment: Speci men Type: BLOOD SPECIMENOrdering Facility: [facility] Address: [address] [place] [address] Performed By: #### 5 8410-2 ####[facility]IA [id number] [place] [address] [place] RBC (Bld) [#/Vol] 4.13 10*6/uL Normal 3.90-5.20 [facility] Comment on above: Order Comment: Speci men Type: BLOOD SPECIMENOrdering Facility: [facility] Address: [address] [place] [address] Performed By: #### 5 8410-2 ####[facility] [id number] [address] [place] WBC (Bld) [#/Vol] 4.70 10*3/uL Normal 3.70-11.00 [facility] Comment on above: Order Comment: Speci men Type: BLOOD SPECIMENOrdering Facility: [facility] Address: [address] [place] [address] Performed By: #### 5 8410-2 ####[facility] [id number] [place] [id number] [facility] [place] NURSING PROGon 06-14-2024 NURSING PROG HNO ID: [id number] Author: JOSE JERNIGAN RN Service: Nursing Author [...] XR and lidocaine patch Normal [facility] XR SHLDR >/=3V AP/JASON AP/OTH R [...] portions of the right lung are clear. Patient Admitting Clerk: PSCB Transcribe Date/Time: Jun 14 2024 1:33P Dictated by : DEV WELCH MD This examination was interpreted and the report reviewed and electronically signed by: DEV WELCH MD on Jun 14 2024 1:35PM EST [id number] Normal [facility] ALLIED HEALTHon 06-13-2024 ALLIED HEALTH HNO ID: [id number] Author: ALFRED DALEY Chaplain Service: ? Author Type: Type: Allied Health Filed: 06/13/2024 14:38 Note Text: SPIRITUAL CARE ASSESSMENT SERVICE DATE: 06/13/2024 SERVICE TIME: 11:53 Visit with: Patient Length of visit (minutes): 5 Adventism / Spirituality: Pt did not Disc. Reason: [...] 13, 2024 TIME: 2:31 PM PAGER/CONTACT #: [phone] Normal [facility] Basic metabolic 2000 panelon 06-13-2024 Anion gap [Moles/Vol] 11 mmol/L Normal 8-15 [facility] Comment on above: Order Comment: Speci men Type: BLOOD SPECIMEN Ordering Facility: [facility] Address: [address] [place] [address] Performed By: #### 2 4321-2, 35241-8, #### [facility] CLIA [id number] [address] [place] [address] [place] Calcium [Mass/Vol] 8.9 mg/dL Normal 8.5-10.2 [facility] Comment on above: Order Comment: Speci men Type: BLOOD SPECIMEN Ordering Facility: [facility] Address: [address] [place] [address] Performed By: #### 2 4321-2, 04447-2, #### [facility] CLIA [id number] [address] [place] [address] [place] Chloride [Moles/Vol] 101 mmol/L Normal 98-107 [facility] Comment on above: Order Comment: Speci men Type: BLOOD SPECIMEN Ordering Facility: [facility] Address: [address] [place] [address] Performed By: #### 2 4321-2, 12268-7, #### [facility] CLIA [id number] [address] [place] [address] [place] CO2 [Moles/Vol] 24 mmol/L Normal 22-30 [facility] Comment on above: Order Comment: Speci men Type: BLOOD SPECIMEN Ordering Facility: [facility] Address: [address] [place] [address] Performed By: #### 2 4321-2, 24623-5, #### [facility] CLIA [id number] 1 [place] [address] [place] Creatinine [Mass/Vol] 1.04 mg/dL High 0.58-0.96 [facility] Comment on above: Order Comment: Speci men Type: BLOOD SPECIMEN Ordering Facility: [facility] Address: [address] [place] [address] Performed By: #### 2 4321-2, 44833-9, #### [facility] CLIA [id number] [address] [place] Creatinine and Glomerular filtration rate.predicted panel (S/P/Bld) 53 mL/min/1.73m??? Low >=60 [facility] Comment on above: Order Comment: Rhina mason Type: BLOOD SPECIMEN Ordering Facility: [facility] Address: [address] [place] [address] Result Comment: Isa mated Glomerular Filtration Rate [...] actual GFR. Performed By: #### 2 4321-2, 98993-9, #### [facility] CLIA [id number] [address] [place] [address] [place] Glucose [Mass/Vol] 95 mg/dL Normal 74-99 [facility] Comment on above: Order Comment: Rhina mason Type: BLOOD SPECIMEN Ordering Facility: [facility] Address: [address] [place] [address] Result Comment: The [place] [employer] (ADA) provides guidance for cutoff [...] Standards of Medical Care in Diabetes 2016, [place] [employer]. Diabetes Care. 2016.39(Suppl 1). Performed By: #### 2 4321-2, 30144-9, #### [facility] CLIA [id number] [address] [place] [address] [place] Potassium [Moles/Vol] 3.8 mmol/L Normal 3.7-5.1 [facility] Comment on above: Order Comment: Speci men Type: BLOOD SPECIMEN Ordering Facility: [facility] Address: [address] [place] [address] Performed By: #### 2 4321-2, 95952-9, #### [facility] CLIA [id number] [address] [place] [address] [place] Sodium [Moles/Vol] 136 mmol/L Normal 136-144 [facility] Comment on above: Order Comment: Speci men Type: BLOOD SPECIMEN Ordering Facility: [facility] Address: [address] [place] [address] Performed By: #### 2 4321-2, 57032-2, #### [facility] CLIA [id number] [address] [place] [address] [place] Urea nitrogen [Mass/Vol] 16 mg/dL Normal 7-21 [facility] Comment on above: Order Comment: Speci men Type: BLOOD SPECIMEN Ordering Facility: [facility] Address: [address] [place] [address] Performed By: #### 2 4321-2, 53578-4, #### [facility] CLIA [id number] [address] STATES OF [facility] CBC panel Auto (Bld)on 06-13 Erythrocyte distribution width (RBC) [Ratio] 15.5 % High 11.5-15.0 [facility] Comment on above: Order Comment: Speci men Type: BLOOD SPECIMENOrdering Facility: [facility] Address: [address] [place] [address] Performed By: #### 5 8410-2 ####[facility] [id number] [address] OF [facility] Hematocrit (Bld) [Volume fraction] 33.1 % Low 36.0-46.0 [facility] Comment on above: Order Comment: Speci men Type: BLOOD SPECIMENOrdering Facility: [facility] Address: [address] [place] [address] Performed By: #### 5 8410-2 ####[facility] [id number] [address] [place] Hemoglobin (Bld) [Mass/Vol] 10.2 g/dL Low 11.5-15.5 [facility] Comment on above: Order Comment: Speci men Type: BLOOD SPECIMENOrdering Facility: [facility] Address: [address] [place] [address] Performed By: #### 5 8410-2 ####[facility] [id number] [address] [place] MCH (RBC) [Entitic mass] 26.5 pg Normal 26.0-34.0 [facility] Comment on above: Order Comment: Speci men Type: BLOOD SPECIMENOrdering Facility: [facility] Address: [address] [place] [address] Performed By: #### 5 8410-2 ####[facility] [id number] [address] [place] MCHC (RBC) [Mass/Vol] 30.8 g/dL Normal 30.5-36.0 [facility] Comment on above: Order Comment: Speci men Type: BLOOD SPECIMENOrdering Facility: [facility] Address: [address] [place] [address] Performed By: #### 5 8410-2 ####[facility] [id number] [address] [place] MCV (RBC) [Entitic vol] 86.0 fL Normal 80.0-100.0 [facility] Comment on above: Order Comment: Speci men Type: BLOOD SPECIMENOrdering Facility: [facility] Address: [address] [place] [address] Performed By: #### 5 8410-2 ####[facility]IA [id number] [place] [address] [place] Nucleated RBC (Bld) [#/Vol] 10*3/uL Normal <0.01 [facility] Comment on above: Order Comment: Speci men Type: BLOOD SPECIMENOrdering Facility: [facility] Address: [address] [place] [address] Performed By: #### 5 8410-2 ####[facility] [id number] [address] [place] Platelet mean volume (Bld) [Entitic vol] 9.6 fL Normal 9.0-12.7 [facility] Comment on above: Order Comment: Speci men Type: BLOOD SPECIMENOrdering Facility: [facility] Address: [address] [place] [address] Performed By: #### 5 8410-2 ####[facility] [id number] [address] [place] Platelets (Bld) [#/Vol] 287 10*3/uL Normal 150-400 [facility] Comment on above: Order Comment: Speci men Type: BLOOD SPECIMENOrdering Facility: [facility] Address: [address] [place] [address] Performed By: #### 5 8410-2 ####[facility]IA [id number] [place] [address] [place] RBC (Bld) [#/Vol] 3.85 10*6/uL Low 3.90-5.20 [facility] Comment on above: Order Comment: Speci men Type: BLOOD SPECIMENOrdering Facility: [facility] Address: [address] [place] [address] Performed By: #### 5 8410-2 ####[facility] [id number] [address] [place] WBC (Bld) [#/Vol] 4.79 10*3/uL Normal 3.70-11.00 [facility] Comment on above: Order Comment: Speci men Type: BLOOD SPECIMENOrdering Facility: [facility] Address: [address] [place], [place] [address] Performed By: #### 5 8410-2 ####[facility]IA [id number] [address] aPTT PPPon 06-13-2024 aPTT Coag (PPP) [Time] 51.3 s High 23.0-32.4 [facility] Comment on above: Order Comment: Speci men Type: BLOOD SPECIMEN Ordering Facility: [facility] Address: [address] [place] [address] Performed By: #### 2 4321-2, 73581-4, 22636-6 #### [facility] CLIA [id number] [address] aPTT Coag (PPP) [Time] 89.0 s High 23.0-32.4 [facility] Comment on above: Order Comment: Speci men Type: BLOOD SPECIMEN Ordering Facility: [facility] Address: [address] [place] [address] Performed By: #### 2 4321-2, 53715-0, #### [facility] CLIA [id number] [address] ALLIED HEALTHon 06-12-2024 ALLIED HEALTH HNO ID: [id number] Author: HELLEN SEVILLA RT(Jose) Service: Radiology Author Type: Technologist Type: Allied [...] PATIENT PRESENTS WITH AN IMPLANTABLE OR ATTACHED LOCAL HAZMAT DRIVER: No RADIOLOGY DEPARTMENT: CT; Exam(s) Completed: Brain PERIPHERAL IV DATA: Not applicable SIGNED BY: RT Reji(R) June 12, 2024 9:13 AM Normal [facility] CBC W Auto Differential pane l (Bld)on 06-12-2024 Basophils (Bld) [#/Vol] 0.03 10*3/uL Normal <0.11 [facility] Comment on above: Order Comment: Speci men Type: BLOOD SPECIMEN Ordering Facility: [facility] Address: [address] [place] [address] Performed By: #### 2 4321-2, 87683-1, #### [facility] CLIA [id number] [address] [place] Basophils/100 WBC (Bld) 0.6 % Normal A [facility] Comment on above: Order Comment: Speci men Type: BLOOD SPECIMEN Ordering Facility: [facility] Address: [address] [place] [address] Performed By: #### 2 1-2, 32259-6, #### [facility] CLIA [id number] [address] [place] [address] [place] Differential cell count method Nom (Bld) Auto Normal [facility] Comment on above: Order Comment: Speci men Type: BLOOD SPECIMEN Ordering Facility: [facility] Address: [address] [place] [address] Performed By: #### 2 4321-2, 09313-1, #### [facility] CLIA [id number] [address] [place] [address] [place] Eosinophils (Bld) [#/Vol] 0.05 10*3/uL Normal <0.46 [facility] Comment on above: Order Comment: Speci men Type: BLOOD SPECIMEN Ordering Facility: [facility] Address: [address] [place] [address] Performed By: #### 2 4321-2, 96341-3, #### [facility] CLIA [id number] [address] [place] Eosinophils/100 WBC (Bld) 1.0 % Normal [facility] Comment on above: Order Comment: Speci men Type: BLOOD SPECIMEN Ordering Facility[facility] Address: [address] [place] [address] Performed By: #### 2 4321-2, 05749-5, #### [facility] CLIA [id number] [address] [place] Erythrocyte distribution width (RBC) [Ratio] 15.6 % High 11.5-15.0 [facility] Comment on above: Order Comment: Speci men Type: BLOOD SPECIMEN Ordering Facility: [facility] Address: [address] [place] [address] Performed By: #### 2 432-2, 44131-2, #### [facility] CLIA [id number] [address] OF [facility] Hematocrit (Bld) [Volume fraction] 34.6 % Low 36.0-46.0 [facility] Comment on above: Order Comment: Speci men Type: BLOOD SPECIMEN Ordering Facility: [facility] Address: [address] [place] [address] Performed By: #### 2 4321-2, 33794-8, #### [facility] CLIA [id number] [address] [place] Hemoglobin (Bld) [Mass/Vol] 10.6 g/dL Low 11.5-15.5 [facility] Comment on above: Order Comment: Speci men Type: BLOOD SPECIMEN Ordering Facility: [facility] Address: [address] [place] [address] Performed By: #### 2 4321-2, 51121-8, #### [facility] CLIA [id number] [address] [place] Immature granulocytes (Bld) [#/Vol] 10*3/uL Normal <0.10 [facility] Comment on above: Order Comment: Speci men Type: BLOOD SPECIMEN Ordering Facility: [facility] Address: [address] [place] [address] Performed By: #### 2 4321-2, 43503-2, #### [facility] CLIA [id number] [address] Immature granulocytes/100 WBC (Bld) 0.2 % Normal [facility] Comment on above: Order Comment: Speci men Type: BLOOD SPECIMEN Ordering Facility[facility] Address: [address] [place] [address] Performed By: #### 2 1-2, 37668-7, #### [facility] CLIA [id number] [address] Lymphocytes (Bld) [#/Vol] 1.65 10*3/uL Normal 1.00-4.00 [facility] Comment on above: Order Comment: Speci men Type: BLOOD SPECIMEN Ordering Facility: [facility] Address: [address] [place] [address] Performed By: #### 2 1-2, 11847-3, #### [facility] CLIA [id number] [address] STATES [facility] Lymphocytes/100 WBC (Bld) 31.9 % Normal [facility] Comment on above: Order Comment: Speci men Type: BLOOD SPECIMEN Ordering Facility: [facility] Address: [address] [place] [address] Performed By: #### 2 1-2, 89625-3, #### [facility] CLIA [id number] [address] [place] MCH (RBC) [Entitic mass] 26.2 pg Normal 26.0-34.0 [facility] Comment on above: Order Comment: Speci men Type: BLOOD SPECIMEN Ordering Facility: [facility] Address: [address] [place] [address] Performed By: #### 2 4321-2, 19591-6, #### [facility] CLIA [id number] [address] MCHC (RBC) [Mass/Vol] 30.6 g/dL Normal 30.5-36.0 [facility] Comment on above: Order Comment: Speci men Type: BLOOD SPECIMEN Ordering Facility: [facility] Address: [address] [place] [address] Performed By: #### 2 4321-2, 95209-0, #### [facility] CLIA [id number] [address] OF [facility] MCV (RBC) [Entitic vol] 85.6 fL Normal 80.0-100.0 [facility] Comment on above: Order Comment: Speci men Type: BLOOD SPECIMEN Ordering Facility: [facility] Address: [address] [place] [address] Performed By: #### 2 1-2, 71258-1, #### [facility] CLIA [id number] [address] Monocytes (Bld) [#/Vol] 0.46 10*3/uL Normal <0.87 [facility] Comment on above: Order Comment: Speci men Type: BLOOD SPECIMEN Ordering Facility: [facility] Address: [address] [place] [address] Performed By: #### 2 1-2, 71134-7, #### [facility] CLIA [id number] [address] Monocytes/100 WBC (Bld) 8.9 % Normal A [facility] Comment on above: Order Comment: Speci men Type: BLOOD SPECIMEN Ordering Facility: [facility] Address: [address] [place] [address] Performed By: #### 2 4321-2, 40432-6, #### [facility] CLIA [id number] [address] [place] Neutrophils (Bld) [#/Vol] 2.97 10*3/uL Normal 1.45-7.50 [facility] Comment on above: Order Comment: Speci men Type: BLOOD SPECIMEN Ordering Facility: [facility] Address: [address] [place] [address] Performed By: #### 2 4321-2, 60759-2, #### [facility] CLIA [id number] [address] [place] Neutrophils/100 WBC (Bld) 57.4 % Normal [facility] Comment on above: Order Comment: Speci men Type: BLOOD SPECIMEN Ordering Facility: [facility] Address: [address] [place] [address] Performed By: #### 2 4321-2, 28687-9, #### [facility] CLIA [id number] [address] [place] Nucleated RBC (Bld) [#/Vol] 10*3/uL Normal <0.01 [facility] Comment on above: Order Comment: Speci men Type: BLOOD SPECIMEN Ordering Facility: [facility] Address: [address] [place] [address] Performed By: #### 2 4321-2, 17923-2, #### [facility] CLIA [id number] [address] [place] Nucleated RBC/100 WBC (Bld) [Ratio] 0.0 /100 WBC Normal [facility] Comment on above: Order Comment: Speci men Type: BLOOD SPECIMEN Ordering Facility: [facility] Address: [address] [place] [address] Performed By: #### 2 4321-2, 23601-4, #### [facility] CLIA [id number] [address] [place] Platelet mean volume (Bld) [Entitic vol] 9.6 fL Normal 9.0-12.7 [facility] Comment on above: Order Comment: Speci men Type: BLOOD SPECIMEN Ordering Facility: [facility] Address: [address] [place] [address] Performed By: #### 2 4321-2, 10596-4, #### [facility] CLIA [id number] [address] OF [facility] Platelets (Bld) [#/Vol] 314 10*3/uL Normal 150-400 [facility] Comment on above: Order Comment: Speci men Type: BLOOD SPECIMEN Ordering Facility: [facility] Address: [address] [place] [address] Performed By: #### 2 4321-2, 30570-0, #### [facility] CLIA [id number] [address] RBC (Bld) [#/Vol] 4.04 10*6/uL Normal 3.90-5.20 [facility] Comment on above: Order Comment: Speci men Type: BLOOD SPECIMEN Ordering Facility: [facility] Address: [address] [place] [address] Performed By: #### 2 4321-2, 20752-4, #### [facility] CLIA [id number] [address] WBC (Bld) [#/Vol] 5.17 10*3/uL Normal 3.70-11.00 [facility] Comment on above: Order Comment: Speci men Type: BLOOD SPECIMEN Ordering Facility: [facility] Address: [address] [place] [address] Performed By: #### 2 4321-2, 84681-3, #### [facility] CLIA [id number] [address] CONSULTon 06-12-2024 CONSULT HNO ID: [id number] Author: MINA TALBERT MD Service: Cardiovascular Disease Author Type: Physician Type: Consults Filed: 06/12/2024 10:40 Note Text: CARDIOLOGY CONSULTATION- [facility] Patient Name: Mel Castillo : 1940 PRIMARY CARE PHYSICIAN: Jared Evans MD [address] [place] [address] REFERRING PHYSICIAN No referring provider defined for [...] presumptive 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 chronic A-community health with history of prior stroke PAD COPD [...] the hospital a few months ago at the [facility] she was taking her Eliquis and [...] Don Edwards DO 40 mg at 06/11/24 0920 NaCl 0.9% iv flush bag 20 mL [...] (more content not included)... Normal [facility] CONSULT PROGon 06-12-2024 CONSULT PROG HNO ID: [id number] Author: NICOLAS TESFAYE APRN.[employer] Service: Neurology General Author Type: Nurse Practitioner [...] Score: 1 (06/12/24 0945 : Nicolas Tesfaye, VOCATIONAL EDUCATION PROFESSIONAL.[employer]) 1 MENTAL STATUS: Alert, oriented to person, [...] Care and Prevention (personally reviewed by Nicolas Tesfaye, VOCATIONAL EDUCATION PROFESSIONAL.[employer]): Daily Rounding Date: 06/12/24 Daily Rounding Time: [...] (more content not included)... Normal [facility] CT BRAIN WO IVCONon 06-12-20 CT BRAIN WO IVCON * * *Final Report* * * DATE OF EXAM: Jun 12 2024 9:25AM [facility] 0504 - CT BRAIN WO IVCON / [...] intracranial hemorrhage. Chronic changes, as detailed above. [facility] Trans[facility] Date/Time: Jun 12 2024 9:42A Dictated by : LYDIA EVANS MD This examination was interpreted and the report reviewed and electronically signed by: LYDIA EVANS MD on Jun 12 2024 9:47AM EST [id number] Normal [facility] Comprehensive metabolic 2000 panelon 06-12-2024 Albumin [Mass/Vol] 3.6 g/dL Low 3.9-4.9 [facility] Comment on above: Order Comment: Rhina mason Type: BLOOD SPECIMEN Ordering Facility: [facility] Address: [address] [place] [address] Performed By: #### 2 4321-2, 12928-6, #### [facility] CLIA [id number] [address] [place] [address] [place] ALP [Catalytic activity/Vol] 88 U/L Normal 34-123 [facility] Comment on above: Order Comment: Rhina mason Type: BLOOD SPECIMEN Ordering Facility: [facility] Address: [address] [place] [address] Performed By: #### 2 4321-2, 49360-9, #### [facility] CLIA [id number] [address] [place] ALT With P-5'-P [Catalytic activity/Vol] 6 U/L Low 7-38 [facility] Comment on above: Order Comment: Speci men Type: BLOOD SPECIMEN Ordering Facility: [facility] Address: [address] [place] [address] Performed By: #### 2 4321-2, 24494-5, #### [facility] CLIA [id number] [address] [place] Anion gap [Moles/Vol] 13 mmol/L Normal 8-15 [facility] Comment on above: Order Comment: Speci men Type: BLOOD SPECIMEN Ordering Facility: [facility] Address: [address] [place] [address] Performed By: #### 2 4321-2, 62402-4, #### [facility] CLIA [id number] [address] AST With P-5'-P [Catalytic activity/Vol] 9 U/L Low 13-35 [facility] Comment on above: Order Comment: Speci men Type: BLOOD SPECIMEN Ordering Facility: [facility] Address: [address] [place] [address] Performed By: #### 2 4321-2, 79560-9, #### [facility] CLIA [id number] [address] [place] Bilirubin [Mass/Vol] 0.6 mg/dL Normal 0.2-1.3 [facility] Comment on above: Order Comment: Speci men Type: BLOOD SPECIMEN Ordering Facility: [facility] Address: [address] [place] [address] Performed By: #### 2 4321-2, 67517-2, #### [facility] CLIA [id number] [address] [place] Calcium [Mass/Vol] 9.2 mg/dL Normal 8.5-10.2 [facility] Comment on above: Order Comment: Speci men Type: BLOOD SPECIMEN Ordering Facility: [facility] Address: [address] [place] [address] Performed By: #### 2 4321-2, 37743-8, #### [facility] CLIA [id number] [address] [place] [address] [place] Chloride [Moles/Vol] 101 mmol/L Normal 98-107 [facility] Comment on above: Order Comment: Speci men Type: BLOOD SPECIMEN Ordering Facility: [facility] Address: [address] [place] [address] Performed By: #### 2 4321-2, 52049-9, #### [facility] CLIA [id number] [address] [place] CO2 [Moles/Vol] 23 mmol/L Normal 22-30 [facility] Comment on above: Order Comment: Speci men Type: BLOOD SPECIMEN Ordering Facility: [facility] Address: [address] [place] [address] Performed By: #### 2 4321-2, 82363-3, #### [facility] CLIA [id number] [address] [place] Creatinine [Mass/Vol] 1.02 mg/dL High 0.58-0.96 [facility] Comment on above: Order Comment: Speci men Type: BLOOD SPECIMEN Ordering Facility: [facility] Address: [address] [place] [address] Performed By: #### 2 4321-2, 60838-3, #### [facility] CLIA [id number] [address] Creatinine and Glomerular filtration rate.predicted panel (S/P/Bld) 54 mL/min/1.73m??? Low >=60 [facility] [facility] Comment on above: Order Comment: Speci men Type: BLOOD SPECIMEN Ordering Facility: [facility] Address: [address] [place] [address] Result Comment: Isa mated Glomerular Filtration Rate [...] actual GFR. Performed By: #### 2 4321-2, 43076-0, #### [facility] CLIA [id number] 1 [place] [address] [place] Glucose [Mass/Vol] 109 mg/dL High 74-99 [facility] Comment on above: Order Comment: Rhina mason Type: BLOOD SPECIMEN Ordering Facility: [facility] Address: [address] [place] [address] Result Comment: The [place] Diabetes Association (ADA) provides guidance for cutoff [...] Standards of Medical Care in Diabetes 2016, [place] [employer]. Diabetes Care. 2016.39(Suppl 1). Performed By: #### 2 4321-2, 99441-5, #### [facility] CLIA [id number] 1 [place] [address] [place] Potassium [Moles/Vol] 4.0 mmol/L Normal 3.7-5.1 [facility] Comment on above: Order Comment: Rhina maosn Type: BLOOD SPECIMEN Ordering Facility: [facility] Address: [address] [place] [address] Performed By: #### 2 4321-2, 56005-3, #### [facility] CLIA [id number] [address] [place] Protein [Mass/Vol] 6.4 g/dL Normal 6.3-8.0 [facility] Comment on above: Order Comment: Speci men Type: BLOOD SPECIMEN Ordering Facility: [facility] Address: [address] [place] [address] Performed By: #### 2 4321-2, 63912-4, #### [facility] CLIA [id number] [address] STATES OF [facility] Sodium [Moles/Vol] 137 mmol/L Normal 136-144 [facility] Comment on above: Order Comment: Speci men Type: BLOOD SPECIMEN Ordering Facility: [facility] Address: [address] [place] [address] Performed By: #### 2 4321-2, 07954-2, #### [facility] CLIA [id number] [address] Urea nitrogen [Mass/Vol] 12 mg/dL Normal 7-21 [facility] Comment on above: Order Comment: Speci men Type: BLOOD SPECIMEN Ordering Facility: [facility] Address: [address] [place] [address] Performed By: #### 2 4321-2, 42172-4, #### [facility] CLIA [id number] [address] [place] Magnesium SerPl-mCncon 06-12 Magnesium [Mass/Vol] 2.3 mg/dL Normal 1.7-2.3 [facility] Comment on above: Order Comment: Speci men Type: BLOOD SPECIMEN Ordering Facility: [facility] Address: [address] [place] [address] Performed By: #### 2 4321-2, 37005-5, #### [facility] CLIA [id number] [address] [place] NURSING PROGon 06-12-2024 NURSING PROG HNO ID: [id number] Author: ROBINSON VELÁSQUEZ, RADHA Service: ? Author Type: Registered Nurse Type: [...] draw due at 1900 Normal [facility] PT EDon 06-12-2024 PT ED HNO ID: [id number] Author: DOT PETERSON RPh Service: Pharmacy Author Type: ? Type: Patient Education Filed: 06/12/2024 16:17 Note Text: Attestation signed by Dot Peterson [facility] at 06/12/2024 4:17 PM I have reviewed the documentation below and agree with the plan. A communication has been documented in the handoff tool for hopeful follow-up tomorrow. Dot Peterson PharmD PHARMACY ANTICOAGULATION EDUCATION Patient Name: Mel Castillo [...] questions. Patient aware of copay. Nayana Rowan, Technologist Development Normal [facility] THERAPY NTon 06-12-2024 THERAPY NT HNO ID: [id number] Author: LATOYA LONG, PT Service: Physical Therapy Author Type: Physical Therapist Type: Therapy (PT/OT/Speech/Resp) Filed: 06/12/2024 15:33 Note Text: Physical Therapy Treatment Summary SERVICE DATE: 06/12/2024 SERVICE TIME: 1445 to 1509 ROOM: [place] [address] PT 6 Clicks Score: 13 DISCHARGE RECOMMENDATIONS [...] Lack of coordination-other TREATMENT INTERVENTIONS Therapeutic Activity (00612), Neuromuscular Reeducation (68445) Timed Code Treatment (minutes): 23 Skilled Treatment Time (minutes): 23 Therapeutic Activity (54806) Treatment Minutes: 10 $ Therapeutic Activity (62346) Billed Units: 1 unit Training and assist with bed mobility, transfers and taking steps in place and side steps along the EOB with the walker. Neuromuscular Reeducation (68052) Treatment Minutes: 13 $ Neuromuscular Reeducation (54471) Billed Units: 1 unit Instructed pt in [...] (more content not included)... Normal [facility] THERAPY NT HNO ID: [id number] Author: SHANNAN SEGOVIA OTR/L Service: Occupational Therapy Author Type: Occupational Therapist Type: Therapy (PT/OT/Speech/Resp) Filed: 06/12/2024 08:50 Note Text: Occupational Therapy Evaluation Summary SERVICE DATE: 06/12/2024 SERVICE TIME: 0811 to 0834 ROOM: [place] [address] OT 6 Clicks Score: 15 DISCHARGE RECOMMENDATIONS [...] and signs-other TREATMENT INTERVENTIONS Evaluation, Therapeutic Activity (07746) Timed Code Treatment (minutes): 8 Skilled Treatment Time (minutes): 23 $ Evaluation - Moderate (69835) Billed Units: 1 unit Therapeutic Activity (79410) Treatment Minutes: 8 $ Therapeutic Activity (69550) Billed Units: 1 unit TRAINING AND EDUCATION PROVIDED Assistive Device Use, Bed Mobility, Benefits of In-Hospital Mobility, Cognitive Stimulation Activities, Discharge Planning, Disease Specific Education, Role of Occupational Therapy, Safety/Judgment, Sitting Balance to Improve [place] with ADLs/Self-Care THERAPEUTIC SKILLS USED Activity Dosing, [...] (more content not included)... Normal [facility] aPTT PPPon 06-12-2024 aPTT Coag (PPP) [Time] 56.1 s High 23.0-32.4 [facility] Comment on above: Order Comment: Speci men Type: BLOOD SPECIMEN Ordering Facility: [facility] Address: [address] [place] [address] Performed By: #### 2 4321-2, 75587-5, #### [facility] CLIA [id number] [address] aPTT Coag (PPP) [Time] 79.0 s High 23.0-32.4 [facility] Comment on above: Order Comment: Samiri isabella Type: BLOOD SPECIMEN Ordering Facility: [facility] Address: [address] [place] [address] Performed By: #### 1 4979-9 #### [facility] CLIA [id number] [address] aPTT Coag (PPP) [Time] 123.9 s High 23.0-32.4 [facility] Comment on above: Order Comment: Speci men Type: BLOOD SPECIMEN Ordering Facility: [facility] Address: [address] [place] [address] Performed By: #### 2 4321-2, 17615-3, #### [facility] CLIA [id number] [address] aPTT Coag (PPP) [Time] 117.3 s High 23.0-32.4 [facility] Comment on above: Order Comment: Speci men Type: BLOOD SPECIMEN Ordering Facility: [facility] Address: [address] [place], [place] [address] Performed By: #### 2 4321-2, 19505-4, #### [facility] CLIA [id number] [address] 36on 06-11-2024 36 Normal [facility] ALLIED HEALTHon 06-11-2024 ALLIED HEALTH HNO ID: [id number] Author: FABIO KERR Tech Service: ? Author Type: Aircraft Assembler Type: Allied Health Filed: 06/11/2024 14:16 Note [...] PATIENT PRESENTS WITH AN IMPLANTABLE OR ATTACHED LOCAL HAZMAT DRIVER: No RADIOLOGY DEPARTMENT: MR; Exam(s) Completed: Head: Routine Brain [place] MRA MRA Carotid PERIPHERAL IV DATA: Not applicable SIGNED BY: Anne Marie Carrillo June 11, 2024 2:15 PM Normal [facility] CBC W Auto Differential pane l (Bld)on 06-11-2024 Basophils (Bld) [#/Vol] 0.03 10*3/uL Normal <0.11 [facility] Comment on above: Order Comment: Samiri isabella Type: BLOOD SPECIMEN Ordering Facility: [facility] Address: [address] [place] [address] Performed By: #### 2 4321-2, 40455-1, #### [facility] CLIA [id number] [address] [place] Basophils/100 WBC (Bld) 0.4 % Normal [facility] Comment on above: Order Comment: Speci men Type: BLOOD SPECIMEN Ordering Facility: [facility] Address: [address] [place] [address] Performed By: #### 2 4321-2, 42431-1, #### [facility] CLIA [id number] [address] [place] Differential cell count method Nom (Bld) Auto Normal [facility] Comment on above: Order Comment: Speci men Type: BLOOD SPECIMEN Ordering Facility: [facility] Address: [address] [place] [address] Performed By: #### 2 1-2, 06940-2, #### [facility] CLIA [id number] [address] [place] Eosinophils (Bld) [#/Vol] 10*3/uL Normal <0.46 [facility] Comment on above: Order Comment: Speci men Type: BLOOD SPECIMEN Ordering Facility: [facility] Address: [address] [place] [address] Performed By: #### 2 1-2, 05565-4, #### [facility] CLIA [id number] [address] Eosinophils/100 WBC (Bld) 0.3 % Normal [facility] Comment on above: Order Comment: Speci men Type: BLOOD SPECIMEN Ordering Facility: [facility] Address: [address] [place] [address] Performed By: #### 2 1-2, 00952-6, #### [facility] CLIA [id number] [address] [place] Erythrocyte distribution width (RBC) [Ratio] 15.6 % High 11.5-15.0 [facility] Comment on above: Order Comment: Speci men Type: BLOOD SPECIMEN Ordering Facility: [facility] Address: [address] [place] [address] Performed By: #### 2 1-2, 03075-2, #### [facility] CLIA [id number] [address] [place] Hematocrit (Bld) [Volume fraction] 37.6 % Normal 36.0-46.0 [facility] Comment on above: Order Comment: Speci men Type: BLOOD SPECIMEN Ordering Facility: [facility] Address: [address] [place] [address] Performed By: #### 2 1-2, 85025-6, #### [facility] CLIA [id number] [address] [place] Hemoglobin (Bld) [Mass/Vol] 11.5 g/dL Normal 11.5-15.5 [facility] Comment on above: Order Comment: Speci men Type: BLOOD SPECIMEN Ordering Facility: [facility] Address: [address] [place] [address] Performed By: #### 2 4320-2, 19532-1, #### [facility] CLIA [id number] [address] [place] Immature granulocytes (Bld) [#/Vol] 0.03 10*3/uL Normal <0.10 [facility] Comment on above: Order Comment: Speci men Type: BLOOD SPECIMEN Ordering Facility: [facility] Address: [address] [place] [address] Performed By: #### 2 1-2, 54936-1, #### [facility] CLIA [id number] [address] [place] Immature granulocytes/100 WBC (Bld) 0.4 % Normal [facility] Comment on above: Order Comment: Speci men Type: BLOOD SPECIMEN Ordering Facility: [facility] Address: [address] [place] [address] Performed By: #### 2 1-2, 28127-1, #### [facility] CLIA [id number] [address] OF [facility] Lymphocytes (Bld) [#/Vol] 1.26 10*3/uL Normal 1.00-4.00 [facility] Comment on above: Order Comment: Speci men Type: BLOOD SPECIMEN Ordering Facility: [facility] Address: [address] [place] [address] Performed By: #### 2 4320-2, 92403-4, #### [facility] CLIA [id number] [address] Lymphocytes/100 WBC (Bld) 16.9 % Normal [facility] Comment on above: Order Comment: Speci men Type: BLOOD SPECIMEN Ordering Facility: [facility] Address: [address] [place] [address] Performed By: #### 2 4320-2, 58201-9, #### [facility] CLIA [id number] [address] OF [facility] MCH (RBC) [Entitic mass] 26.6 pg Normal 26.0-34.0 [facility] Comment on above: Order Comment: Speci men Type: BLOOD SPECIMEN Ordering Facility: [facility] Address: [address] [place] [address] Performed By: #### 2 4320-2, 60535-9, #### [facility] CLIA [id number] [address] OF [facility] MCHC (RBC) [Mass/Vol] 30.6 g/dL Normal 30.5-36.0 [facility] Comment on above: Order Comment: Speci men Type: BLOOD SPECIMEN Ordering Facility: [facility] Address: [address] [place] [address] Performed By: #### 2 4320-2, 82829-9, #### [facility] CLIA [id number] [address] [place] [address] [place] MCV (RBC) [Entitic vol] 87.0 fL Normal 80.0-100.0 [facility] Comment on above: Order Comment: Speci men Type: BLOOD SPECIMEN Ordering Facility: [facility] Address: [address] [place] [address] Performed By: #### 2 4321-2, 10099-2, #### [facility] CLIA [id number] 1 [place] [address] [place] Monocytes (Bld) [#/Vol] 0.68 10*3/uL Normal <0.87 [facility] Comment on above: Order Comment: Speci men Type: BLOOD SPECIMEN Ordering Facility: [facility] Address: [address] [place] [address] Performed By: #### 2 4321-2, 82676-7, #### [facility] CLIA [id number] [address] Monocytes/100 WBC (Bld) 9.1 % Normal [facility] Comment on above: Order Comment: Speci men Type: BLOOD SPECIMEN Ordering Facility: [facility] Address: [address] [place] [address] Performed By: #### 2 1-2, 34594-1, #### [facility] CLIA [id number] [address] [place] Neutrophils (Bld) [#/Vol] 5.43 10*3/uL Normal 1.45-7.50 [facility] Comment on above: Order Comment: Speci men Type: BLOOD SPECIMEN Ordering Facility: [facility] Address: [address] [place] [address] Performed By: #### 2 1-2, 06478-8, #### [facility] CLIA [id number] [address] [place] Neutrophils/100 WBC (Bld) 72.9 % Normal [facility] Comment on above: Order Comment: Speci men Type: BLOOD SPECIMEN Ordering Facility: [facility] Address: [address] [place] [address] Performed By: #### 2 4321-2, 68923-1, #### [facility] CLIA [id number] [address] Nucleated RBC (Bld) [#/Vol] 10*3/uL Normal <0.01 [facility] Comment on above: Order Comment: Speci men Type: BLOOD SPECIMEN Ordering Facility: [facility] Address: [address] [place] [address] Performed By: #### 2 4321-2, 06841-2, #### [facility] CLIA [id number] [address] [place] Nucleated RBC/100 WBC (Bld) [Ratio] 0.0 /100 WBC Normal [facility] Comment on above: Order Comment: Speci men Type: BLOOD SPECIMEN Ordering Facility: [facility] Address: [address] [place] [address] Performed By: #### 2 1-2, 89841-0, #### [facility] CLIA [id number] [address] [place] Platelet mean volume (Bld) [Entitic vol] 9.5 fL Normal 9.0-12.7 [facility] Comment on above: Order Comment: Speci men Type: BLOOD SPECIMEN Ordering Facility: [facility] Address: [address] [place] [address] Performed By: #### 2 4321-2, 04305-8, #### [facility] CLIA [id number] [address] [place] Platelets (Bld) [#/Vol] 329 10*3/uL Normal 150-400 [facility] Comment on above: Order Comment: Speci men Type: BLOOD SPECIMEN Ordering Facility: [facility] Address: [address] [place] [address] Performed By: #### 2 4321-2, 55922-8, #### [facility] CLIA [id number] [address] [place] [address] [place] RBC (Bld) [#/Vol] 4.32 10*6/uL Normal 3.90-5.20 [facility] Comment on above: Order Comment: Speci men Type: BLOOD SPECIMEN Ordering Facility: [facility] Address: [address] [place] [address] Performed By: #### 2 4321-2, 36736-6, 43427-5 #### [facility] CLIA [id number] [address] OF [facility] WBC (Bld) [#/Vol] 7.45 10*3/uL Normal 3.70-11.00 [facility] Comment on above: Order Comment: Speci men Type: BLOOD SPECIMEN Ordering Facility: [facility] Address: [address] [place] [address] Performed By: #### 2 4321-2, 59848-8, 47287-9 #### [facility] CLIA [id number] [address] OF [facility] CONSULTon 06-11-2024 CONSULT HNO ID: [id number] Author: JENNY WALLACE MD Service: Neurology General [...] cannot ambulate. Pre-admission Pre-morbid mRS: Premorbid Modified Roseau Score: 0 - No symptoms at all [...] (more content not included)... Normal [facility] CONSULT HNO ID: [id number] Author: TOÑO MANZO MD Service: Urology Author [...] discussed with the Patient or Patient's Authorized Bridge Worker Apprentice. As applicable, any other physician, advance practice provider, medical student, or other health professional student that will be observing or involved in the sensitive examination for educational or training purposes was discussed with the Patient or Authorized Bridge Worker Apprentice. The Patient or Authorized Bridge Worker Apprentice has agreed to proceed with the sensitive [...] lesion. Consider follow-up renal CT/MR for characterization. Patient Admitting Clerk: DEVEN Chaudhry (more content not included)... Normal [facility] CONSULT PROGon 06-11-2024 CONSULT PROG HNO ID: [id number] Author: CARL PERSAUD RPh Service: Pharmacy Author [...] care of this patient. Carl Persaud RPh [facility] CONSULT PROG HNO ID: [id number] Author: CARL PERSAUD RPh Service: Pharmacy Author [...] Signature: Carl Persaud RPh Normal [facility] CT ABD/PEL W IVCONon 06-11-[address] ABD/PEL W IVCON * * *Final Report* * * DATE OF EXAM: Jun 11 2024 3:07AM [facility] 0530 - CT ABD/PEL W IVCON / [...] to bilateral greater trochanters, similar to prior. Front Of House Manager (topogram) images: No additional findings. IMPRESSION: 1. Mild bilateral hydroureteronephrosis to the pelvic brim without evidence of ureterolithiasis. 2. Indeterminate left renal lesion. Consider follow-up renal CT/MR for characterization. Patient Admitting Clerk: DEVEN Transcribe Date/Time: Jun 11 2024 3:09A Dictated by : RAF AYALA MD This examination was interpreted and the report reviewed and electronically signed by: RAF AYALA MD on Jun 11 2024 3:40AM EST [id number] Normal [facility] CT BRAIN WO IVCONon 06-11-[address] BRAIN WO IVCON * * *Final Report* * * DATE OF EXAM: Jun 11 2024 3:05AM [facility] 0504 - CT BRAIN WO IVCON / [...] changes and small remote right occipital infarct. Patient Admitting Clerk: DEVEN Transcribe Date/Time: Jun 11 2024 3:05A Dictated by : RIN LANE MD This examination was interpreted and the report reviewed and electronically signed by: RIN LANE MD on Jun 11 2024 3:16AM EST [id number] Normal [facility] ECHO WITH AGITATED SALINE CO NTRASTon 06-11-2024 ECHO WITH AGITATED SALINE CONTRAST Echocardiography Report: Transthoracic Echo [facility] Date of service: 06/11/2024 11:20:46 AM [facility] Ordering physician: DON EDWARDS Indication: TIA Technologist: Dinora Fields [facility] Interpreting physician: Nando Costa MD PATIENT: [...] * * Final * * * CC [facility] : [id number] Normal [facility] ED NOTEon 06-11-2024 ED NOTE HNO ID: [id number] Author: GISSELL CARRINGTON RN Service: Emergency Medicine Author Type: Registered Nurse Type: ED Notes Filed: 06/11/2024 05:58 Note Text: Gave report to assigned RN on 2100. Assigned RN is ready to receive patient at this time. Normal [facility] ED NOTE HNO ID: [id number] Author: GISSELL CARRINGTON RN Service: Emergency Medicine Author Type: Registered Nurse Type: ED Notes Filed: 06/11/2024 00:40 Note Text: Dr. Mendoza at bedside placing a US IV at this time. Normal [facility] HIGH SENSITIVITY TROPONIN T (SECOND)on 06-11-2024 Troponin T.cardiac High sensitivity method [Mass/Vol] 14 ng/L High <12 [facility] Comment on above: Order Comment: Specrobson mason Type: BLOOD SPECIMEN Ordering Facility: [facility] Address: [address] [place] [address] Performed By: #### 2 4321-2, 27427-1, #### [facility] CLIA [id number] [address] HIGH SENSITIVITY TROPONIN T (THIRD) 3 HRS AFTER INITIALon 06-11-2024 Troponin T.cardiac High sensitivity method [Mass/Vol] 14 ng/L High <12 [facility] Comment on above: Order Comment: Rhina mason Type: BLOOD SPECIMEN Ordering Facility: [facility] Address: [address] [place] [address] Performed By: #### 2 4321-2, 17791-1, #### [facility] CLIA [id number] [address] [place] HISTORY PHYSICALon HISTORY PHYSICAL HNO ID: [id number] Author: DON EDWARDS DO Service: Hospital Medicine Author Type: Physician Type: H&P Filed: 06/11/2024 14:14 Note Text: DEPARTMENT OF HOSPITAL MEDICINE HISTORY AND PHYSICAL EXAM SERVICE DATE: 06/11/2024 SERVICE TIME: 10:25 AM Primary Care Physician: Jared Evans MD, NIGHT AND WEEKEND COVERAGE: [place] COVERAGE: From 7am - 7pm, please call [phone] After 7pm, please call cross cover pager #[phone] Subjective CHIEF COMPLAINT: dizziness with vomiting, slurred [...] Drains, and Airways Line Duration Peripheral 06/11/24 [facility] Left Antecubital 20 Gauge <1 day Drain Duration External Collection Device 06/11/24 0250 [facility] <1 day Reviewed lines and needs to be continued: REASONS: Telemetry DATA: Diagnostic tests reviewed for today's visit: Most recent lab (more content not included)... Normal [facility] MRA BRAIN WO IVCONon 024 MRA BRAIN WO IVCON * * *Final Report* * * DATE OF EXAM: Jun 11 2024 3:52PM [facility] 0272 - MRA BRAIN WO IVCON / PROCEDURE REASON: Neuro deficit, acute, stroke suspected * * * * Physician Interpretation * * * * EXAMINATION: MRI BRAIN WO IVCON, MRA BRAIN WO IVCON, MRA CAROTID WO IVCON CLINICAL HISTORY: Neuro deficit, acute, stroke suspected TECHNIQUE: Routine noncontrast MRI brain protocol including diffusion images. Intracranial and carotid 3D [id number] MRA. 3D maximum intensity projection images were [...] Patency: Bilateral Dominance: Left INTRACRANIAL MRA: The [place] is patent without significant stenosis. 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 IMPRESSION: Motion degraded study. 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 No hemorrhagic transformation or significant mass effect. Unremarkable carotid MRA. 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 [facility] Transcribe Date/Time: Jun 11 2024 3:54P Dictated by : ESTHER MCKEON MD This examination was interpreted and the report reviewed and electronically signed by: ESTHER MCKEON MD on Jun 11 2024 4:13PM EST [id number] Normal [facility] MRA CAROTID WO IVCONon 06-11 MRA CAROTID WO IVCON * * *Final Report* * * DATE OF EXAM: Jun 11 2024 3:52PM [facility] 0275 - MRA CAROTID WO IVCON / PROCEDURE REASON: Neuro deficit, acute, stroke suspected * * * * Physician Interpretation * * * * EXAMINATION: MRI BRAIN WO IVCON, MRA BRAIN WO IVCON, MRA CAROTID WO IVCON CLINICAL HISTORY: Neuro deficit, acute, stroke suspected TECHNIQUE: Routine noncontrast MRI brain protocol including diffusion images. Intracranial and carotid 3D rtfk-tq-hyuxhf MRA. 3D maximum intensity projection images were [...] Patency: Bilateral Dominance: Left INTRACRANIAL MRA: The [place] is patent without significant stenosis. 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 IMPRESSION: Motion degraded study. 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 No hemorrhagic transformation or significant mass effect. Unremarkable carotid MRA. 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 Patient Admitting Clerk: DEVEN Transcribe Date/Time: Jun 11 2024 3:54P Dictated by : ESTHER MCKEON MD This examination was interpreted and the report reviewed and electronically signed by: ESTHER MCKEON MD on Jun 11 2024 4:13PM EST [id number] Normal [facility] MRI BRAIN WO IVCONon 024 MRI BRAIN WO IVCON * * *Final Report* * * DATE OF EXAM: Jun 11 2024 3:52PM [facility] 0294 - MRI BRAIN WO IVCON / PROCEDURE REASON: stroke * * * * Physician Interpretation * * * * EXAMINATION: MRI BRAIN WO IVCON, MRA BRAIN WO IVCON, MRA CAROTID WO IVCON CLINICAL HISTORY: Neuro deficit, acute, stroke suspected TECHNIQUE: Routine noncontrast MRI brain protocol including diffusion images. Intracranial and carotid 3D kalm-rk-msuyoe MRA. 3D maximum intensity projection images were [...] Patency: Bilateral Dominance: Left INTRACRANIAL MRA: The [place] is patent without significant stenosis. 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 IMPRESSION: Motion degraded study. 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 No hemorrhagic transformation or significant mass effect. Unremarkable carotid MRA. 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 Patient Admitting Clerk: DEVEN Transcribe Date/Time: Jun 11 2024 3:54P Dictated by : ESTHER MCKEON MD This examination was interpreted and the report reviewed and electronically signed by: ESTHER MCKEON MD on Jun 11 2024 4:13PM EST [id number] Normal [facility] PT panel Coag (PPP)on 2023 INR Coag (PPP) [Relative time] 1.2 {INR} Normal 0.9-1.3 [facility] Comment on above: Order Comment: Rhina mason Type: BLOOD SPECIMEN Ordering Facility: [facility] Address: [address] [place] [address] Result Comment: Mayra min K Antagonist (VKA) Therapeutic Range: INR 2 to 3 (Target INR of 2.5) Note: For patients treated with VKA drugs, such as warfarin, the [employer] [employer] 2012 Guideline recommends [...] 2.5 to 3.5 (target INR of 3). Reytt GH, et al. Chest 2012, 141:7S-47S Daren RA, et al. [facility] 2017, 70: 252-289 Performed By: #### 2 4321-2, 06343-9, #### [facility] CLIA [id number] [address] STATES OF [facility] PT Coag (PPP) [Time] 12.6 s Normal 9.7-13.0 [facility] Comment on above: Order Comment: Rhina mason Type: BLOOD SPECIMEN Ordering Facility: [facility] Address: [address] [place] [address] Performed By: #### 2 4321-2, 26053-4, #### [facility] CLIA [id number] [address] [place] THERAPY NTon 06-11-2024 THERAPY NT HNO ID: [id number] Author: BASILIA MAGALLANES CCC-SMASH PIECER Service: Speech/Swallow Author Type: Speech Language Pathologist Type: Therapy (PT/OT/Speech/Resp) Filed: 06/11/2024 09:44 Note Text: Speech Therapy Clinical Swallow Evaluation SERVICE DATE: 06/11/2024 SERVICE TIME: 915 ROOM: [place] [address] IMPRESSION: Functional oropharyngeal phases of swallowing: without [...] Skilled Need Interventions Provided: Clinical Swallow Evaluation (22935) $ Clinical Swallow Evaluation (30889) Billed Units: 1 unit Training and Education [...] for this therapy evaluation/treatment. SIGNATURE: Basilia Magallanes CCC-SMASH PIECER PATIENT NAME: Mel Castillo DATE: June 11, 2024 TIME: 9:39 AM Normal [facility] THERAPY NT HNO ID: [id number] Author: MEHREEN MANCERA PT Service: Physical Therapy Author Type: Physical Therapist Type: Therapy (PT/OT/Speech/Resp) Filed: 06/11/2024 09:27 Note Text: Physical Therapy Evaluation Summary SERVICE DATE: 06/11/2024 SERVICE TIME: 804 to 841 ROOM: [id number] PT 6 Clicks Score: 18 DISCHARGE RECOMMENDATIONS [...] and signs-other TREATMENT INTERVENTIONS Evaluation, Canalith Repositioning (62232) Skilled Treatment Time (minutes): 37 $ Evaluation-Moderate (98470) Billed Units: 1 unit $ Canalith Repositioning (81535) Billed Units: 1 unit Repositioning maneuver for [...] due to blind L eye Positional Testing: Eris-Hallpike, Left, Horizontal Canals, Left [place]-Hallpike, Left: Note: pt with vertigo pattern of [...] (more content not included)... Normal [facility] Urinalysis complete panel (U )on 06-11-2024 Bilirubin Ql (U) Negative Normal Negative [facility] Comment on above: Order Comment: Speci men Type: URINE SPECIMENOrdering Facility: [facility] Address: [address] [place] [address] Performed By: #### 2 4356-8 ####[facility]IA [id number] [address] [place] Clarity (Unsp spec) Clear Normal Clear [facility] Comment on above: Order Comment: Speci men Type: URINE SPECIMENOrdering Facility: [facility] Address: [address] [place] [address] Performed By: #### 2 4356-8 ####[facility]IA [id number] [address] [place] Color (U) Light Yellow Normal yellow [facility] Comment on above: Order Comment: Speci men Type: URINE SPECIMENOrdering Facility: [facility] Address: [address] [place] [address] Performed By: #### 2 4356-8 ####[facility]ORYCLIA [id number] [address] [place] Glucose Test strip (U) [Mass/Vol] Negative Normal Trace, Negative [facility] Comment on above: Order Comment: Speci men Type: URINE SPECIMENOrdering Facility: [facility] Address: [address] [place] [address] Performed By: #### 2 4356-8 ####[facility]ORYCLIA [id number] [address] STATES [facility] Hemoglobin Ql (U) Trace Normal Negative, Trace [facility] Comment on above: Order Comment: Speci men Type: URINE SPECIMENOrdering Facility: [facility] Address: [address] [place] [address] Performed By: #### 2 4356-8 ####[facility]ORYCLIA [id number] [address] [place] Ketones Ql (U) Negative Normal Negative, Trace [facility] Comment on above: Order Comment: Speci men Type: URINE SPECIMENOrdering Facility: [facility] Address: [address] [place] [address] Performed By: #### 2 4356-8 ####[facility]ORYCLIA [id number] [address] Leukocyte esterase Test strip Ql (U) Negative Normal Negative, 25 Jose Luis/uL [facility] Comment on above: Order Comment: Speci men Type: URINE SPECIMENOrdering Facility: [facility] Address: [address] [place] [address] Performed By: #### 2 4356-8 ####[facility]ORYCLIA [id number] [place] [address] [place] Nitrite Ql (U) Negative Normal Negative [facility] Comment on above: Order Comment: Speci men Type: URINE SPECIMENOrdering Facility: [facility] Address: [address] [place] [address] Performed By: #### 2 4356-8 ####[facility]ORYCLIA [id number] [address] STATES OF [facility] pH (U) [pH] High 5.0-8.0 [facility] Comment on above: Order Comment: Speci men Type: URINE SPECIMENOrdering Facility: [facility] Address: [address] [place] [address] Performed By: #### 2 4356-8 ####[facility]ORYCLIA [id number] [address] [place] [facility] Protein (U) [Mass/Vol] 1+ Abnormal Trace , Negative [facility] Comment on above: Order Comment: Speci men Type: URINE SPECIMENOrdering Facility: [facility] Address: [address] [place] [address] Performed By: #### 2 4356-8 ####[facility] [id number] [address] STATES [facility] RBC LM.HPF (Urine sed) [#/Area] 6-10 /HPF Abnormal 0-3 /HPF [facility] Comment on above: Order Comment: Speci men Type: URINE SPECIMENOrdering Facility: [facility] Address: [address] [place] [address] Performed By: #### 2 4356-8 ####[facility] [id number] [address] STATES [facility] Specific gravity (U) [Rel density] 1.039 High 1.005-1.030 [facility] Comment on above: Order Comment: Speci men Type: URINE SPECIMENOrdering Facility: [facility] Address: [address] [place] [address] Performed By: #### 2 4356-8 ####[facility]ORYCLIA [id number] [address] Urobilinogen Ql (U) Normal Normal Normal [facility] Comment on above: Order Comment: Speci men Type: URINE SPECIMENOrdering Facility: [facility] Address: [address] [place] [address] Performed By: #### 2 4356-8 ####[facility]ORYCLIA [id number] [address] WBC LM.HPF (Urine sed) [#/Area] 0-5 /HPF Normal 0-5 /HPF [facility] Comment on above: Order Comment: Speci men Type: URINE SPECIMENOrdering Facility: [facility] Address: [address] [place] [address] Performed By: #### 2 4356-8 ####[facility]ORYCLIA [id number] [address] [place] aPTT PPPon 06-11-2024 aPTT Coag (PPP) [Time] 28.2 s Normal 23.0-32.4 [facility] Comment on above: Order Comment: Speci men Type: BLOOD SPECIMENOrdering Facility: [facility] Address: [address] [place] [address] Performed By: #### 1 4979-9 ####[facility]ORYCLIA [id number] [address] aPTT Coag (PPP) [Time] 28.9 s Normal 23.0-32.4 [facility] Comment on above: Order Comment: Speci men Type: BLOOD SPECIMEN Ordering Facility: [facility] Address: [address] [place] [address] Performed By: #### 2 4321-2, 62045-6, 94380-0 #### [facility] CLIA [id number] [address] CBC W Auto Differential pane l (Bld)on 06-10-2024 Basophils (Bld) [#/Vol] 0.04 10*3/uL Normal <0.11 [facility] Comment on above: Order Comment: Speci men Type: BLOOD SPECIMEN Ordering Facility: [facility] Address: [address] [place] [address] Performed By: #### 2 4321-2, 47695-9, #### [facility] CLIA [id number] [address] Basophils/100 WBC (Bld) 0.7 % Normal [facility] Comment on above: Order Comment: Speci men Type: BLOOD SPECIMEN Ordering Facility: [facility] Address: [address] [place] [address] Performed By: #### 2 4321-2, 37924-5, #### [facility] CLIA [id number] [address] OF [facility] Differential cell count method Nom (Bld) Auto Normal [facility] Comment on above: Order Comment: Speci men Type: BLOOD SPECIMEN Ordering Facility: [facility] Address: [address] [place] [address] Performed By: #### 2 4320-2, 65147-2, #### [facility] CLIA [id number] [address] OF [facility] Eosinophils (Bld) [#/Vol] 10*3/uL Normal <0.46 [facility] Comment on above: Order Comment: Speci men Type: BLOOD SPECIMEN Ordering Facility: [facility] Address: [address] [place] [address] Performed By: #### 2 1-2, 69634-4, #### [facility] CLIA [id number] [address] Eosinophils/100 WBC (Bld) 0.2 % Normal [facility] Comment on above: Order Comment: Speci men Type: BLOOD SPECIMEN Ordering Facility: [facility] Address: [address] [place] [address] Performed By: #### 2 4321-2, 88157-4, #### [facility] CLIA [id number] [address] [place] Erythrocyte distribution width (RBC) [Ratio] 15.6 % High 11.5-15.0 [facility] Comment on above: Order Comment: Speci men Type: BLOOD SPECIMEN Ordering Facility: [facility] Address: [address] [place] [address] Performed By: #### 2 4321-2, 32153-1, #### [facility] CLIA [id number] [address] [place] Hematocrit (Bld) [Volume fraction] 37.5 % Normal 36.0-46.0 [facility] Comment on above: Order Comment: Speci men Type: BLOOD SPECIMEN Ordering Facility: [facility] Address: [address] [place] [address] Performed By: #### 2 1-2, 11556-0, #### [facility] CLIA [id number] [address] [place] Hemoglobin (Bld) [Mass/Vol] 11.4 g/dL Low 11.5-15.5 [facility] Comment on above: Order Comment: Speci men Type: BLOOD SPECIMEN Ordering Facility: [facility] Address: [address] [place] [address] Performed By: #### 2 1-2, 99592-6, #### [facility] CLIA [id number] [address] [place] Immature granulocytes (Bld) [#/Vol] 10*3/uL Normal <0.10 [facility] Comment on above: Order Comment: Speci men Type: BLOOD SPECIMEN Ordering Facility: [facility] Address: [address] [place] [address] Performed By: #### 2 1-2, 49156-5, #### [facility] CLIA [id number] [address] [place] Immature granulocytes/100 WBC (Bld) 0.4 % Normal [facility] Comment on above: Order Comment: Speci men Type: BLOOD SPECIMEN Ordering Facility: [facility] Address: [address] [place], [place] [address] Performed By: #### 2 4321-2, 54920-4, #### [facility] CLIA [id number] [address] [place] Lymphocytes (Bld) [#/Vol] 0.61 10*3/uL Low 1.00-4.00 [facility] Comment on above: Order Comment: Speci men Type: BLOOD SPECIMEN Ordering Facility: [facility] Address: [address] [place] [address] Performed By: #### 2 4321-2, 47345-3, #### [facility] CLIA [id number] [address] OF [facility] Lymphocytes/100 WBC (Bld) 10.8 % Normal [facility] Comment on above: Order Comment: Speci men Type: BLOOD SPECIMEN Ordering Facility: [facility] Address: [address] [place] [address] Performed By: #### 2 1-2, 52295-7, #### [facility] CLIA [id number] [address] STATES OF [facility] MCH (RBC) [Entitic mass] 26.2 pg Normal 26.0-34.0 [facility] Comment on above: Order Comment: Speci men Type: BLOOD SPECIMEN Ordering Facility: [facility] Address: [address] [place] [address] Performed By: #### 2 1-2, 35875-3, #### [facility] CLIA [id number] [address] [place] MCHC (RBC) [Mass/Vol] 30.4 g/dL Low 30.5-36.0 [facility] Comment on above: Order Comment: Speci men Type: BLOOD SPECIMEN Ordering Facility: [facility] Address: [address] [place] [address] Performed By: #### 2 4321-2, 02133-1, #### [facility] CLIA [id number] [address] [place] [address] [place] MCV (RBC) [Entitic vol] 86.2 fL Normal 80.0-100.0 [facility] Comment on above: Order Comment: Speci men Type: BLOOD SPECIMEN Ordering Facility: [facility] Address: [address] [place] [address] Performed By: #### 2 4321-2, 82412-7, #### [facility] CLIA [id number] [address] [place] Monocytes (Bld) [#/Vol] 0.21 10*3/uL Normal <0.87 [facility] Comment on above: Order Comment: Speci men Type: BLOOD SPECIMEN Ordering Facility[facility] Address: [address] [place] [address] Performed By: #### 2 4321-2, 69149-2, #### [facility] CLIA [id number] [address] [place] Monocytes/100 WBC (Bld) 3.7 % Normal [facility] Comment on above: Order Comment: Speci men Type: BLOOD SPECIMEN Ordering Facility[facility] Address: [address] [place] [address] Performed By: #### 2 4321-2, 63428-6, #### [facility] CLIA [id number] [address] [place] [address] [place] Neutrophils (Bld) [#/Vol] 4.78 10*3/uL Normal 1.45-7.50 [facility] Comment on above: Order Comment: Speci men Type: BLOOD SPECIMEN Ordering Facility[facility] Address: [address] [place] [address] Performed By: #### 2 4321-2, 34277-2, #### [facility] CLIA [id number] [address] [place] Neutrophils/100 WBC (Bld) 84.2 % Normal [facility] Comment on above: Order Comment: Speci men Type: BLOOD SPECIMEN Ordering Facility: [facility] Address: [address] [place] [address] Performed By: #### 2 4321-2, 70568-6, #### [facility] CLIA [id number] [address] [place] [address] [place] Nucleated RBC (Bld) [#/Vol] 10*3/uL Normal <0.01 [facility] Comment on above: Order Comment: Speci men Type: BLOOD SPECIMEN Ordering Facility: [facility] Address: [address] [place] [address] Performed By: #### 2 1-2, 97098-2, #### [facility] CLIA [id number] [address] [place] Nucleated RBC/100 WBC (Bld) [Ratio] 0.0 /100 WBC Normal [facility] Comment on above: Order Comment: Speci men Type: BLOOD SPECIMEN Ordering Facility: [facility] Address: [address] [place] [address] Performed By: #### 2 4321-2, 51842-4, #### [facility] CLIA [id number] [address] [place] [address] [place] Platelet mean volume (Bld) [Entitic vol] 9.4 fL Normal 9.0-12.7 [facility] Comment on above: Order Comment: Speci men Type: BLOOD SPECIMEN Ordering Facility: [facility] Address: [address] [place] [address] Performed By: #### 2 4321-2, 61960-2, #### [facility] CLIA [id number] [address] [place] [address] [place] Platelets (Bld) [#/Vol] 330 10*3/uL Normal 150-400 [facility] Comment on above: Order Comment: Speci men Type: BLOOD SPECIMEN Ordering Facility[facility] Address: [address] [place] [address] Performed By: #### 2 4321-2, 53536-3, 16483-5 #### [facility] CLIA [id number] [address] OF [facility] RBC (Bld) [#/Vol] 4.35 10*6/uL Normal 3.90-5.20 [facility] Comment on above: Order Comment: Speci men Type: BLOOD SPECIMEN Ordering Facility: [facility] Address: [address] [place] [address] Performed By: #### 2 4321-2, 04373-2, #### [facility] CLIA [id number] [address] WBC (Bld) [#/Vol] 5.67 10*3/uL Normal 3.70-11.00 [facility] Comment on above: Order Comment: Speci men Type: BLOOD SPECIMEN Ordering Facility[facility] Address: [address] [place] [address] Performed By: #### 2 4321-2, 36077-2, #### [facility] CLIA [id number] [address] Comprehensive metabolic 2000 panelon 06-10-2024 Albumin [Mass/Vol] 4.2 g/dL Normal 3.9-4.9 [facility] Comment on above: Order Comment: Speci men Type: BLOOD SPECIMENOrdering Facility: [facility] Address: [address] [place] [address] Performed By: #### 3 016-3, 66474-0, 7, 38088-0 ####[facility] [id number] [address] ALP [Catalytic activity/Vol] 99 U/L Normal 34-123 [facility] Comment on above: Order Comment: Speci men Type: BLOOD SPECIMENOrdering Facility: [facility] Address: [address] [place] [address] Performed By: #### 3 016-3, 93739-2, 3023-7, 62889-8 ####[facility]CLIA [id number] [place] [address] [place] ALT With P-5'-P [Catalytic activity/Vol] 8 U/L Normal 7-38 [facility] Comment on above: Order Comment: Speci men Type: BLOOD SPECIMENOrdering Facility: [facility] Address: [address] [place] [address] Performed By: #### 3 016-3, 50282-9, 3024-01, 10580-0 ####[facility]CLIA [id number] [place] [address] [place] Anion gap [Moles/Vol] 12 mmol/L Normal 8-15 [facility] Comment on above: Order Comment: Speci men Type: BLOOD SPECIMENOrdering Facility: [facility] Address: [address] [place] [address] Performed By: #### 3 016-3, 64169-5, 3024-01, ####[facility] [id number] [address] STATES OF [facility] AST With P-5'-P [Catalytic activity/Vol] 12 U/L Low 13-35 [facility] Comment on above: Order Comment: Speci men Type: BLOOD SPECIMENOrdering Facility: [facility] Address: [address] [place] [address] Performed By: #### 3 016-3, 88776-9, 3024-01, 12588-7 ####[facility]CLIA [id number] [place] [id number] [place] [facility] Bilirubin [Mass/Vol] 0.4 mg/dL Normal 0.2-1.3 [facility] Comment on above: Order Comment: Speci men Type: BLOOD SPECIMENOrdering Facility: [facility] Address: [address] [place] [address] Performed By: #### 3 016-3, 54529-7, 7, 42725-6 ####[facility]IA [id number] [address] [place] Calcium [Mass/Vol] 9.5 mg/dL Normal 8.5-10.2 [facility] Comment on above: Order Comment: Speci men Type: BLOOD SPECIMENOrdering Facility: [facility] Address: [address] [place] [address] Performed By: #### 3 016-3, 96688-4, 3024-7, 22533-0 ####[facility]CLIA [id number] [place] [address] [place] Chloride [Moles/Vol] 101 mmol/L Normal 98-107 [facility] Comment on above: Order Comment: Speci men Type: BLOOD SPECIMENOrdering Facility: [facility] Address: [address] [place] [address] Performed By: #### 3 016-3, 72428-2, 3024-7, 69279-9 ####[facility] LABORATORYCLIA [id number] [address] STATES OF [facility] CO2 [Moles/Vol] 23 mmol/L Normal 22-30 [facility] Comment on above: Order Comment: Speci men Type: BLOOD SPECIMENOrdering Facility: [facility] Address: [address] [place] [address] Performed By: #### 3 016-3, 48673-0, 3024-7, 15815-0 ####[facility] LABORATORYCLIA [id number] [address] [place] Creatinine [Mass/Vol] 0.87 mg/dL Normal 0.58-0.96 [facility] Comment on above: Order Comment: Speci men Type: BLOOD SPECIMENOrdering Facility: [facility] Address: [address] [place] [address] Performed By: #### 3 016-3, 35996-6, 3024-7, 07284-2 ####[facility] LABORATORYCLIA [id number] [address] [place] Creatinine and Glomerular filtration rate.predicted panel (S/P/Bld) 66 mL/min/1.73m??? Normal >=60 [facility] Comment on above: Order Comment: Rhina mason Type: BLOOD SPECIMENOrdering Facility: [facility] Address: [address] [place] [address] Result Comment: Isa mated Glomerular Filtration Rate [...] actual GFR. Performed By: #### 3 016-3, 93501-3, 3024-7, 39476-7 ####[facility] LABORATORYCLIA [id number] [place] [address] [place] Glucose [Mass/Vol] 157 mg/dL High 74-99 [facility] Comment on above: Order Comment: Rhina mason Type: BLOOD SPECIMENOrdering Facility: [facility] Address: [address] [place] [address] Result Comment: The [place] Diabetes Association (ADA) provides guidance for cutoff [...] Standards of Medical Care in Diabetes 2016, [place] Diabetes Association. Diabetes Care. 2016.39(Suppl 1). Performed By: #### 3 016-3, 28257-9, 3024-7, 57595-0 ####[facility] LABORATORYCLIA [id number] [place] [address] [place] Potassium [Moles/Vol] 4.3 mmol/L Normal 3.7-5.1 [facility] Comment on above: Order Comment: Speci men Type: BLOOD SPECIMENOrdering Facility: [facility] Address: [address] [place] [address] Performed By: #### 3 016-3, 39422-8, 3024-7, 46552-2 ####[facility] LABORATORYCLIA [id number] [address] [place] Protein [Mass/Vol] 7.1 g/dL Normal 6.3-8.0 [facility] Comment on above: Order Comment: Speci men Type: BLOOD SPECIMENOrdering Facility: [facility] Address: [address] [place] [address] Performed By: #### 3 016-3, 43033-0, 3024-7, 02429-2 ####[facility] LABORATORYCLIA [id number] [address] STATES OF [facility] Sodium [Moles/Vol] 136 mmol/L Normal 136-144 [facility] Comment on above: Order Comment: Speci men Type: BLOOD SPECIMENOrdering Facility: [facility] Address: [address] [place] [address] Performed By: #### 3 016-3, 74211-3, 3024-7, 63332-7 ####[facility] LABORATORYCLIA [id number] [address] STATES OF [facility] Urea nitrogen [Mass/Vol] 14 mg/dL Normal 7-21 [facility] Comment on above: Order Comment: Speci men Type: BLOOD SPECIMENOrdering Facility: [facility] Address: [address] [place] [address] Performed By: #### 3 016-3, 09987-0, 3024-7, 74745-6 ####[facility] LABORATORYCLIA [id number] [address] [place] ECG COMPLETEon 06-10-2024 ECG COMPLETE Ventricular Rate : 6 4 BPM QRS Duration : 90 ms Q-T Interval : 424 ms QTC Calculation(Bazett) : 437 ms Calculated R [place] : 56 degrees Calculated T [place] : 20 degrees ATRIAL FIBRILLATION ABNORMAL ECG NO PREVIOUS ECGS AVAILABLE Confirmed by SAKINA MELLO MD ([id number]) on 12/07/2024 10:44:28 PM NAME : MEL GUADARRAMA PID : [id number] : 1940 Gender : Female Race : ORD : [id number] Procedure Date : Jun 10 2024 23:35:14 Edit Date : Dec 07 2024 22:44:32 Diagnosis: ATRIAL FIBRILLATION ABNORMAL ECG NO PREVIOUS ECGS AVAILABLE Confirmed by SAKINA MELLO MD ([id number]) on 12/07/2024 10:44:28 PM Test Reason : Chest Pain Location : 4 : AKED EM Overread By : SAKINA MELLO MD Edited By : SAKINA MELLO MD Referred By : , Acquired by : REGAN RODRIGES [facility] ED NOTEon 06-10-2024 ED NOTE HNO ID: [id number] Author: DAMARIS HERNANDEZ RN Service: ? Author Type: Registered Nurse Type: ED Notes Filed: 06/10/2024 23:06 Note Text: Bed: 36-ED Expected date: Expected time: Means of arrival: Comments: RAMESH [facility] ED PROV NOTEon 06-10-2024 ED PROV NOTE HNO ID: [id number] Author: THOMAS SERNA MD Service: Emergency Medicine [...] head to the left or right the [place]. No nystagmus noted vertical or lateral The [...] THOMAS SERNA 06/11/24 0519 Normal [facility] ED PROV NOTE HNO ID: [id number] Author: THOMAS SERNA MD Service: Emergency Medicine [...] (more content not included)... Normal [facility] HIGH SENSITIVITY TROPONIN T (INITIAL)on 06-10-2024 Troponin T.cardiac High sensitivity method [Mass/Vol] 14 ng/L High <12 [facility] Comment on above: Order Comment: Rhina mason Type: BLOOD SPECIMENOrdering Facility: [facility] Address: [address] [place] [address] Performed By: #### L [id number] ####[facility] LABORATORYCLIA [id number] [address] STATES [facility] HbA1c (Bld)on 06-10-2024 Average glucose Estimated from glycated hemoglobin (Bld) [Mass/Vol] 120 mg/dL Normal [facility] Comment on above: Order Comment: Rhina mason Type: BLOOD SPECIMEN [facility] Address: [address] [place] [address] Result Comment: eAG: (Estimated average glucose) is a calculated value from HgbA1c and is retail wireless sales representative of the average blood glucose level in the last 2-3 month period. Performed By: #### 2 4321-2, 46274-3, #### [facility] CLIA [id number] [address] STATES [facility] HbA1c (Bld) [Mass fraction] 5.8 % High 4.3-5.6 [facility] Comment on above: Order Comment: Rhina mason Type: BLOOD SPECIMEN [facility] Address: [address] [place] [address] Result Comment: [place] Diabetes Association guidelines indicate that patients with HgbA1c in the range 5.7-6.4% are at increased risk for development of diabetes, and intervention by lifestyle modification may be beneficial. HgbA1c greater or equal to 6.5% is considered diagnostic of diabetes. Performed By: #### 2 4321-2, 53464-6, #### [facility] CLIA [id number] [address] OF [facility] Lipid 1996 panelon 11-24-202 4 Cholesterol [Mass/Vol] 227 mg/dL High <200 [facility] Comment on above: Order Comment: Samirrobson mason Type: BLOOD SPECIMENOrdering Facility: [facility] Address: [address] [place] [address] Result Comment: <200 mg/dL, Desirable 200-239 mg/dL, Borderline high >239 mg/dL, High Performed By: #### 3 016-3, 01632-9, 302-7, 14692-1 ####[facility]ORATORYCLIA [id number] [address] [place] Cholesterol in HDL [Mass/Vol] 78 mg/dL Normal >39 [facility] Comment on above: Order Comment: Samirrobson mason Type: BLOOD SPECIMENOrdering Facility: [facility] Address: [address] [place] [address] Result Comment: 40-5 9 mg/dL, Acceptable >59 mg/dL, High: Negative risk factor for coronary heart disease <40 mg/dL, Low: Positive risk factor for coronary heart disease Performed By: #### 3 016-3, 91291-3, 3023-7, 66976-2 ####[facility] LABORATORYCLIA [id number] [address] STATES OF [facility] Cholesterol in LDL [Mass/Vol] 139 mg/dL High <100 [facility] Comment on above: Order Comment: Rhina mason Type: BLOOD SPECIMENOrdering Facility: [facility] Address: [address] [place] [address] Result Comment: <100 mg/dL, Optimal 100-129 mg/dL, Near optimal/above optimal 130-159 mg/dL, Borderline high 160-189 mg/dL, High >189 mg/dL, Very high Secondary prevention optimal LDL Cholesterol levels are recommended to be < 70 mg/dL Performed By: #### 3 016-3, 50601-1, 3023-7, 94918-4 ####[facility]ORATORYCLIA [id number] [address] [place] Cholesterol in LDL/Cholesterol in HDL [Mass ratio] 1.78 {ratio} Normal <2.54 [facility] Comment on above: Order Comment: Rhina mason Type: BLOOD SPECIMENOrdering Facility: [facility] Address: [address] [place] [address] Result Comment: Brii nath: 1. National Cholesterol Education Program ATP III Guideline At-A-Glance Quick Desk Reference: National Heart, Lung, and Blood [place]. National Institutes of Health. 2001: NIH Publication No. 01-3305. 2. An International Atherosclerosis Society position paper: global recommendations for the management of dyslipidemia: executive summary, Atherosclerosis. 2014: 232(2):410-413. Performed By: #### 3 016-3, 87782-4, 3023-7, 08213-8 ####[facility] LABORATORYCLIA [id number] [address] STATES OF [facility] Cholesterol in VLDL [Mass/Vol] 10 mg/dL Normal <30 [facility] Comment on above: Order Comment: Samirrobson mason Type: BLOOD SPECIMENOrdering Facility: [facility] Address: [address] [place] [address] Performed By: #### 3 016-3, 59282-0, 3023-7, 12362-8 ####[facility]ORATORYCLIA [id number] [address] [place] Cholesterol non HDL [Mass/Vol] 149 mg/dL High <130 [facility] Comment on above: Order Comment: Samirrobson mason Type: BLOOD SPECIMENOrdering Facility: [facility] Address: [address] [place] [address] Result Comment: <130 mg/dL, Optimal 130-159 mg/dL, Near optimal/above optimal 160-189 mg/dL, Borderline high 190-219 mg/dL, High >219 mg/dL, Very high Secondary prevention optimal non HDL Cholesterol levels are recommended to be <100 mg/dL Performed By: #### 3 016-3, 40246-3, 302-7, 41440-8 ####[facility] LABORATORYCLIA [id number] [address] [place] Cholesterol.total/Pastora sterol in HDL [Mass ratio] 2.91 {ratio} Normal <5.10 [facility] Comment on above: Order Comment: Rhina mason Type: BLOOD SPECIMENOrdering Facility: [facility] Address: [address] [place] [address] Performed By: #### 3 016-3, 90312-7, 3023-7, 66134-1 ####[facility] LABORATORYCLIA [id number] [address] [place] FASTING TIME Normal [facility] Comment on above: Order Comment: Rhina mason Type: BLOOD SPECIMENOrdering Facility: [facility] Address: [address] [place] [address] Result Comment: Unkn own Performed By: #### 3 016-3, 97264-2, 7, 51939-9 ####[facility] LABORATORYCLIA [id number] [address] STATES OF [facility] Triglyceride [Mass/Vol] 49 mg/dL Normal <150 [facility] Comment on above: Order Comment: Rhina isabella Type: BLOOD SPECIMENOrdering Facility: [facility] Address: [address] [place] [address] Result Comment: <150 mg/dL, Normal 150-199 mg/dL, Borderline high 200-499 mg/dL, High >499 mg/dL, Very high Performed By: #### 3 016-3, 09079-9, 7, 24958-4 ####[facility] LABORATORYCLIA [id number] [address] OF [facility] PT panel Coag (PPP)on 2023 INR Coag (PPP) [Relative time] 1.3 {INR} Normal 0.9-1.3 [facility] Comment on above: Order Comment: Samirrobson mason Type: BLOOD SPECIMENOrdering Facility: [facility] Address: [address] [place] [address] Result Comment: Mayra min K Antagonist (VKA) Therapeutic Range: INR 2 to 3 (Target INR of 2.5) Note: For patients treated with VKA drugs, such as warfarin, the [place] College [employer]icians 2012 Guideline recommends [...] Chest 2012, 141:7S-47S Daren RA, et al. [facility] 2017, 70: 252-289 Performed By: #### 3 4528-0 ####[facility] LABORATORYCLIA [id number] [place] [address] [place] PT Coag (PPP) [Time] 13.2 s High 9.7-13.0 [facility] Comment on above: Order Comment: Speci men Type: BLOOD SPECIMENOrdering Facility: [facility] Address: [address] [place] [address] Performed By: #### 3 4528-0 ####[facility]PITALCLIA [id number] [place] [address] [place] T4 Free SerPl-mCncon 024 Free T4 [Mass/Vol] 1.3 ng/dL Normal 0.9-1.7 [facility] Comment on above: Order Comment: Speci men Type: BLOOD SPECIMENOrdering Facility: [facility] Address: [address] [place] [address] Performed By: #### 3 016-3, 65069-8, 3024-7, 59832-6 ####[facility] LABORATORYCLIA [id number] [address] [place] TSH SerPl-aCncon 06-10-2024 TSH Qn 1.620 m[IU]/L Normal 0.270-4.200 [facility] Comment on above: Order Comment: Speci men Type: BLOOD SPECIMENOrdering Facility: [facility] Address: [address] [place] [address] Performed By: #### 3 016-3, 09927-4, 3024-7, 75004-1 ####[facility] LABORATORYCLIA [id number] [place] [address] [place] 36on 06-04-2024 36 Normal [facility] 36on 06-01-2024 36 Normal [facility] Progress Noteon 05-22-2024 Progress Note Normal [facility] PT Coag (Bld) [Time]on 05-21 INR Coag (PPP) [Relative time] 2.8 {INR} Abnormal 0.9 - 1.1 [facility] Interpretation and review of laboratory results Abnormal [facility] Progress Noteon 05-21-2024 Progress Note Normal [facility] Progress Note INR reported on yoan Waller with [facility]. Christin can be reached at [phone] with questions. Normal [facility] Protime-INRon 05-21-2024 PT Coag (Bld) [Time] 33.9 s Abnormal 9.0 - 12.0 [facility] Heart TransthoracicOrdere d By: Davian Landrum on 05-14-2024 Ao Root Index 1.63 cm/m2 [facility] Work Phone: [phone] Aortic Arch 2.6 cm [facility] Work Phone: Aortic Root 2.8 cm [facility] Work Phone: Aortic Sinus Valsalva 2.8 cm [facility] Work Phone: Aortic Sinus Valsalva Index 1.63 cm/m2 [facility] Work Phone: Ascending Aorta 2.7 cm [facility] Work Phone: Ascending Aorta Index 1.57 cm/m2 [facility] Work Phone: AV Area by Peak Velocity 1.4 cm2 [facility] Work Phone: AV Area by VTI 1.4 cm2 [facility] Heal Work Phone: AV Mean Gradient 3 mmHg [facility] He [facility] Work Phone: AV Mean Velocity 0.9 m/s [facility] Work Phone: AV Peak Gradient 7 mmHg [facility] Work Phone: AV Peak Velocity 1.3 m/s [facility] Work Phone: AV Velocity Ratio 0.62 [facility] Work Phone: AV VTI 30 cm [facility] Work Phone: POLA/BSA Peak Velocity 0.8 cm2/m2 [facility] Work Phone: POLA/BSA VTI 0.8 cm2/m2 [facility] Work Phone: E/E' Lateral 14 [facility] Work Phone: E/E' Ratio (Averaged) 18 [facility] Work Phone: E/E' Septal 22 [facility] Work Phone: EF BP 61 % 55 - 100 % [facility] Work Phone: Est. RA Pressure 3 mmHg [facility]th Work Phone: Fractional Shortening 2D 30 % 28 - 44 % [facility] Work Phone: [phone] Global Longitudinal Strain -15.3 % [facility] Work Phone: [phone] Interpretation and review of laboratory results Abnormal [facility] Work Phone: [phone] IVC Diameter 1.8 cm [facility] Work Phone: [phone] IVSd 1 cm Abnormal 0.6 - 0.9 cm [facility] Work Phone: [phone] LA Diameter 4.1 cm [facility] Work Phone: [phone] LA Size Index 2.38 cm/m2 [facility] Healt h Work Phone: [phone] LA Volume 2C 63 mL Abnormal 22 - 52 mL [facility] Work Phone: [phone] LA Volume 4C 80 mL Abnormal 22 - 52 mL [facility] Work Phone: [phone] LA Volume A/L 76 mL [facility] Healt h Work Phone: LA Volume BP 72 mL Abnormal 22 - 52 mL [facility] Work Phone: LA Volume Index 2C 37 mL/m2 Abnormal 16 - 34 mL/m2 [facility] Work Phone: LA Volume Index 4C 47 mL/m2 Abnormal 16 - 34 mL/m2 [facility] Work Phone: LA Volume Index A/L 44 mL/m2 16 - 34 mL/m2 [facility] Work Phone: [phone] LA Volume Index BP 42 ml/m2 Abnormal 16 - 34 ml/m2 [facility] Work Phone: LA/AO Root Ratio 1.46 [facility] Work Phone: [phone] LV E' Lateral Velocity 11 cm/s [facility] Work Phone: LV E' Septal Velocity 7 cm/s [facility] Work Phone: [phone] LV EDV A2C 45 mL [facility] Work Phone: LV EDV A4C 48 mL [facility] Work Phone: LV EDV BP 47 mL Abnormal 56 - 104 mL [facility] Work Phone: LV EDV Index A2C 26 mL/m2 [facility] Work Phone: LV EDV Index A4C 28 mL/m2 [facility] Work Phone: LV EDV Index BP 27 mL/m2 [facility] Work [phone] LV Ejection Fraction A2C 68 % [facility] Work Phone: LV Ejection Fraction A4C 55 % [facility] Work Phone: LV ESV A2C 14 mL [facility] Work Phone: LV ESV A4C 21 mL [facility] Work Phone: LV ESV BP 18 mL Abnormal 19 - 49 mL [facility] Work Phone: LV ESV Index A2C 8 mL/m2 [facility] Work Phone: LV ESV Index A4C 12 mL/m2 [facility] alth Work Phone: LV ESV Index BP 10 mL/m2 [facility] Hea lt Work Phone: [phone] LV Mass 2D 142.5 g 67 - 162 g [facility] Work Phone: [phone] LV Mass 2D Index 82.8 g/m2 43 - 95 g/m2 [facility] [employer] Work Phone: [phone] LV RWT Ratio 0.47 [facility] [employer] Work Phone: [phone] LVIDd 4.3 cm 3.9 - 5.3 cm [facility] [employer] Work Phone: [phone] LVIDd Index 2.5 cm/m2 [facility] [employer] Work Phone: [phone] LVIDs 3 cm [facility] [employer] Work Phone: [phone] LVIDs Index 1.74 cm/m2 [facility] [employer] Work Phone: [phone] LVOT Area 2.5 cm2 [facility] [employer] Work Phone: [phone] LVOT Cardiac Output 3.2 liter/mi nut e [facility] [employer] Work Phone: [phone] LVOT Diameter 1.8 cm [facility] [employer] Work Phone: [phone] LVOT Mean Gradient 1 mmHg [facility] [employer] Work Phone: [phone] LVOT Peak Gradient 2 mmHg [facility] [employer] Work Phone: [phone] LVOT Peak Velocity 0.8 m/s [facility] [employer] Work Phone: [phone] LVOT Stroke Volume Index 25.1 mL/m2 [facility] [employer] Work Phone: [phone] LVOT SV 43.2 ml [facility] [employer] Work Phone: [phone] LVOT VTI 17 cm [facility] [employer] Work Phone: [phone] LVOT:AV VTI Index 0.57 [facility] ealth Work Phone: [phone] LVPWd 1 cm Abnormal 0.6 - 0.9 cm [facility] [employer] Work Phone: [phone] MV A Velocity 0.41 m/s [facility]alt h Work Phone: [phone] MV Area by PHT 3.3 cm2 [facility] Work Phone: MV Area by VTI 1.2 cm2 [facility] Work Phone: MV E Velocity 1.54 m/s [facility] Work Phone: MV E Wave Deceleration Time 180.9 ms [facility] Work Phone: MV E/A 3.76 [facility] Work Phone: MV Max Velocity 1.7 m/s [facility] Work Phone: MV Mean Gradient 4 mmHg [facility] Work Phone: MV Mean Velocity 0.9 m/s [facility] Work Phone: MV Peak Gradient 11 mmHg [facility] Work Phone: MV PHT 66.9 ms [facility] Work Phone: MV VTI 35.1 cm [facility] Work Phone: MV:LVOT VTI Index 2.06 [facility] Work Phone: RA Area 4C 55.1 mL [facility] Work Phone: [phone] RV Basal Dimension 2.7 cm [facility] Work Phone: [phone] RV Free Wall Peak S' 11 cm/s [facility] Work Phone: [phone] RV Longitudinal Dimension 4.9 cm [facility] Work Phone: [phone] RV Mid Dimension 2.1 cm [facility] Work Phone: RVSP 54 mmHg [facility] Work Phone: Sinotubular Junction 2.7 cm [facility] Work Phone: TAPSE 1.5 cm Abnormal 1.7 cm [facility] Work Phone: TR Max Velocity 3.56 m/s [facility] Work Phone: TR Peak Gradient 51 mmHg [facility] Work Phone: TR Peak Velocity PISA 3.6 m/s [facility] Work Phone: TR VTI 120.8 cm [facility] Phone: TV EROA 0.2 cm2 [facility] Phone: TV Nyquist Velocity 39 cm/s [facility] Phone: [facility] Phone: Heart Transthoracicon There is a 1.3 x [...] notified the ordering physician of the findings. [facility] PT Coag (Bld) [Time]on 05-09 INR Coag (PPP) [Relative time] 2.7 {INR} Abnormal 0.9 - 1.1 [facility] Interpretation and review of laboratory results Abnormal [facility] Progress Noteon 05-09-2024 Progress Note Graciela from [facility] call ed in results. Normal [facility] Progress Note Normal [facility] Protime-INRon 05-09-2024 PT Coag (Bld) [Time] 32.1 s Abnormal 9.0 - 12.0 [facility] PT Coag (Bld) [Time]on 05-01 INR Coag (PPP) [Relative time] 2.7 {INR} Abnormal 0.9 - 1.1 [facility] Interpretation and review of laboratory results Abnormal [facility] Progress Noteon 05-01-2024 Progress Note Normal [facility] Progress Note Tia- [facility]- [phone] Normal [facility] Protime-INRon 05-01-2024 PT Coag (Bld) [Time] 32.4 s Abnormal 9.0 - 12.0 [facility] 36on 04-27-2024 36 Pt requested refill on warfarin 5mg. Sent to [facility]. Receipt confirmed by pharmacy. Normal [facility] Progress Noteon 04-27-2024 Progress Note Normal [facility] Progress Note Tia- [facility]- [phone] Normal [facility] Progress Noteon 04-25-2024 Progress Note Normal [facility] Progress Noteon 04-23-2024 Progress Note Normal [facility] Progress Note Christin [facility] called any questions or concerns [phone]. Normal [facility] PT Coag (Bld) [Time]on 04-19 INR Coag (PPP) [Relative time] 2.1 {INR} Abnormal 0.9 - 1.1 [facility] Interpretation and review of laboratory results Abnormal [facility] Progress Noteon 04-19-2024 Progress Note Normal [facility] Progress Note Graciela with [facility] repo rts INR on vm Graciela can be reached at [phone] with any questions. Normal [facility] Protime-INRon 04-19-2024 PT Coag (Bld) [Time] 24.9 s Abnormal 9.0 - 12.0 [facility] Progress Noteon 04-16-2024 Progress Note Christin- [facility]- [phone] Normal [facility] Progress Note Normal [facility] Progress Noteon 04-14-2024 Progress Note Placed new order for POCT INR, [facility] had not received. Normal [facility] [id number] 04-13-2024 [id number] Normal [facility] APTTon 04-13-2024 aPTT Coag (Bld) [Time] 132.2 s Critically high 20.0-30. 5 [facility] Comment on above: Result Comment: BUBBA Garcia COMMENTS:NOTE: The therapeutic time for Heparin anticoagulation, based on Xa activity inhibition, is an APTT of 46-80 seconds. Performed By: #### L [id number], [id number] ####Insurance Billing Specialist: VELMA VALADEZ ([phone])[facility])[address] [place] [address] BASIC METABOLIC PANELon 03-19 Anion gap [Moles/Vol] 2 mmol/L Low 3-13 [facility] Comment on above: Performed By: #### L [id number] ####Insurance Billing Specialist: VELMA VALADEZ ([phone])[facility] ([facility])[address] [place] [address] Calcium [Mass/Vol] 9.0 mg/dL Normal 8.4-10.4 [facility] Comment on above: Performed By: #### L [id number] ####Insurance Billing Specialist: VELMA VALADEZ ([phone])[facility])[address] [place] [address] [place] Chloride [Moles/Vol] 108 mmol/L High 98-107 [facility] Comment on above: Performed By: #### L [id number] ####Insurance Billing Specialist: VELMA VALADEZ ([phone])[facility] ([facility])[address] [place] [address] CO2 [Moles/Vol] 25 mmol/L Normal 22-30 [facility] Comment on above: Performed By: #### L [id number] ####Insurance Billing Specialist: VELMA VALADEZ ([phone])[facility] ([facility])[address] [place] [address] Creatinine [Mass/Vol] 1.00 mg/dL Normal 0.52-1.04 [facility] Comment on above: Performed By: #### L [id number] ####Insurance Billing Specialist: VELMA VALADEZ ([phone])[facility] ([facility])[address] [place] [address] GLOMERULAR FILTRATION RATE ML/MIN/1.73 SQ M.PREDICTED 55.7 mL/min/1.73m*2 Low >60.0 [facility] Comment on above: Result Comment: Calc ulation based on the Chronic Kidney Disease Epidemiology Collaboration (CKD-EPI) equation refit without adjustment for race Performed By: #### L [id number] ####Insurance Billing Specialist: VELMA VALADEZ ([phone])[facility] ([facility])[address] [place] [address] Glucose [Mass/Vol] 98 mg/dL Normal 70-100 [facility] Comment on above: Performed By: #### L [id number] ####Insurance Billing Specialist: VELMA VALADEZ ([phone])[facility] ([facility])[address] [place] [address] Potassium [Moles/Vol] 4.3 mmol/L Normal 3.5-5.1 [facility] Comment on above: Performed By: #### L [id number] ####Insurance Billing Specialist: EVLMA VALADEZ ([phone])[facility])[address] [place] [address] Sodium [Moles/Vol] 135 mmol/L Normal 135-145 [facility] Comment on above: Performed By: #### L [id number] ####Insurance Billing Specialist: VELMA VALADEZ ([phone])[facility] ([facility])[address] [place] [address] Urea nitrogen [Mass/Vol] 18 mg/dL High 7-17 [facility] Comment on above: Performed By: #### L [id number] ####Insurance Billing Specialist: VELMA VALADEZ ([phone])[facility] [place] [address] Basic metabolic 1998 panelon 04-13-2024 Anion gap [Moles/Vol] 2 mmol/L Low 3 - 13 mmol/L [facility] Calcium [Mass/Vol] 9.0 mg/dL 8.4 - 10. 4 mg/dL [facility] Chloride [Moles/Vol] 108 mmol/L High 98 - 10 7 mmol/L [facility] CO2 [Moles/Vol] 25 mmol/L 22 - 30 mmol/L [facility] Creatinine [Mass/Vol] 1.00 mg/dL 0.52 - 1.04 mg/dL [facility] GFR/1.73 sq M.predicted (S/P/Bld) [Vol rate/Area] 55.7 mL/min Low - PINF [facility] Comment on above: Calculation based on the Chronic Kidney Disease Epidemiology Collaboration (CKD-EPI) equation refit without adjustment for race Glucose [Mass/Vol] 98 mg/dL 70 - 100 mg/dL [facility] Interpretation and review of laboratory results Abnormal [facility] Potassium [Moles/Vol] 4.3 mmol/L 3.5 - 5.1 mmol/L [facility] Sodium [Moles/Vol] 135 mmol/L 135 - 145 mmol/L [facility] Urea nitrogen [Mass/Vol] 18 mg/dL High 7 - 17 mg/dL [facility] CARECOORDon 04-13-2024 [facility] Normal [facility] CBC W Auto Differential pane l (Bld)on 04-13-2024 Basophils (Bld) [#/Vol] 0.0 10*3/uL 0.0 - 0.2 10*3/uL [facility] Basophils/100 WBC (Bld) 0.7 % 0.0 - 2.0 % [facility] Eosinophils (Bld) [#/Vol] 0.1 10*3/uL 0.0 - 0.5 10*3/uL [facility] Eosinophils/100 WBC (Bld) 2.6 % 0.0 - 6.0 % [facility] Erythrocyte distribution width (RBC) [Ratio] 14.5 % 11.5 - 15.0 % [facility] Hematocrit (Bld) [Volume fraction] 26.3 % Low 35.0 - 47.0 % [facility] Hemoglobin (Bld) [Mass/Vol] 8.6 g/dL Low 11.7 - 16.0 g/dL [facility] Immature granulocytes (Bld) [#/Vol] 0.0 10*3/uL NINF - 0.1 10*3/uL [facility] Immature granulocytes/100 WBC (Bld) 0.2 % 0.0 - 2.0 % [facility] Interpretation and review of laboratory results Abnormal [facility] Lymphocytes (Bld) [#/Vol] 1.4 10*3/uL 1.0 - 4.3 10*3/uL [facility] Lymphocytes/100 WBC (Bld) 33.5 % 15.0 - 45.0 % [facility] MCH (RBC) [Entitic mass] 29.8 pg 26.0 - 34.0 pg [facility] MCHC (RBC) [Mass/Vol] 32.7 % 30.5 - 36.0 % [facility] MCV (RBC) [Entitic vol] 91.0 fL 77.0 - 99.0 fL [facility] Monocytes (Bld) [#/Vol] 0.5 10*3/uL 0.0 - 0.9 10*3/uL [facility] Monocytes/100 WBC (Bld) 11.3 % 5.0 - 13.0 % [facility] Neutrophils (Bld) [#/Vol] 2.2 10*3/uL 1.8 - 7.5 10*3/uL [facility] Neutrophils/100 WBC (Bld) 51.7 % 38.0 - 82.0 % [facility] Nucleated RBC/100 WBC (Bld) [Ratio] 0.0 % [facility] Platelet mean volume (Bld) [Entitic vol] 9.4 fL 9.0 - 12.7 fL [facility] Platelets (Bld) [#/Vol] 317 10*3/uL 140 - 440 10*3/uL [facility] RBC (Bld) [#/Vol] 2.89 10*6/uL Low 3.80 - 5.2 0 10*6/uL [facility] WBC (Bld) [#/Vol] 4.2 10*3/uL 3.6 - 10.7 10*3/uL [facility] CBC WITH AUTO DIFFERENTIALon 04-13-2024 Basophils (Bld) [#/Vol] 0.0 10*3/uL Normal 0.0-0.2 [facility] Comment on above: Performed By: #### L [id number] ####Insurance Billing Specialist: VELMA VALADEZ ([phone])[facility] ([facility])[address] [place] [address] Basophils/100 WBC (Bld) 0.7 % Normal 0.0-2.0 [facility] Comment on above: Performed By: #### L [id number] ####Insurance Billing Specialist: VELMA VALADEZ ([phone])[facility])[address] [place] [address] Eosinophils (Bld) [#/Vol] 0.1 10*3/uL Normal 0.0-0.5 [facility] Comment on above: Performed By: #### L [id number] ####Insurance Billing Specialist: VELMA VALADEZ ([phone])[facility])[address] [place] [address] Eosinophils/100 WBC (Bld) 2.6 % Normal 0.0-6.0 [facility] Comment on above: Performed By: #### L [id number] ####Insurance Billing Specialist: VELMA VALADEZ ([phone])[facility])[address] [place] [address] Erythrocyte distribution width (RBC) [Ratio] 14.5 % Normal 11.5-15.0 [facility] Comment on above: Performed By: #### L [id number] ####Insurance Billing Specialist: VELMA VALADEZ ([phone])[facility])[address] [place] [address] Hematocrit (Bld) [Volume fraction] 26.3 % Low 35.0-47.0 [facility] Comment on above: Performed By: #### L [id number] ####Insurance Billing Specialist: VELMA VALADEZ ([phone])[facility])[address] [place] [address] Hemoglobin (Bld) [Mass/Vol] 8.6 g/dL Low 11.7-16.0 [facility] Comment on above: Performed By: #### L [id number] ####Insurance Billing Specialist: VELMA VALADEZ ([phone])[facility])[address] [place] [address] IMMATURE GRANS % 0.2 % Normal 0.0-2.0 [facility] Comment on above: Performed By: #### L [id number] ####Insurance Billing Specialist: VELMA VALADEZ ([phone])[facility])[address] [place] [address] IMMATURE GRANS ABSOLUTE 0.0 10*3/uL Normal <0.1 [facility] Comment on above: Performed By: #### L [id number] ####Insurance Billing Specialist: VELMA VALADEZ ([phone])[facility])[address] [place] [address] Lymphocytes (Bld) [#/Vol] 1.4 10*3/uL Normal 1.0-4.3 [facility] Comment on above: Performed By: #### L [id number] ####Insurance Billing Specialist: VELMA VALADEZ ([phone])[facility])[address] [place] [address] Lymphocytes/100 WBC (Bld) 33.5 % Normal 15.0-45.0 [facility] Comment on above: Performed By: #### L [id number] ####Insurance Billing Specialist: VELMA VALADEZ ([phone])[facility])[address] [place] [address] MCH (RBC) [Entitic mass] 29.8 pg Normal 26.0-34.0 [facility] Comment on above: Performed By: #### L [id number] ####Insurance Billing Specialist: VELMA VALADEZ ([phone])[facility] ([facility])[address] [place] [address] MCHC 32.7 % Normal 30.5-36.0 [facility] Comment on above: Performed By: #### L [id number] ####Insurance Billing Specialist: VELMA VALADEZ ([phone])[facility] ([facility])[address] [place] [address] MCV (RBC) [Entitic vol] 91.0 fL Normal 77.0-99.0 S [facility] Comment on above: Performed By: #### L [id number] ####Insurance Billing Specialist: VELMA VALADEZ ([phone])[facility] ([facility])[address] [place] [address] Monocytes (Bld) [#/Vol] 0.5 10*3/uL Normal 0.0-0.9 [facility] Comment on above: Performed By: #### L [id number] ####Insurance Billing Specialist: VELMA VALADEZ ([phone])[facility] ([facility])[address] [place] [address] Monocytes/100 WBC (Bld) 11.3 % Normal 5.0-13.0 S [facility] Comment on above: Performed By: #### L [id number] ####Insurance Billing Specialist: VELMA VALADEZ ([phone])[facility] ([facility])[address] [place] [address] NEUTROPHILS ABSOLUTE 2.2 10*3/uL Normal 1.8-7.5 [facility] Comment on above: Performed By: #### L [id number] ####Insurance Billing Specialist: VELMA VALADEZ ([phone])[facility] ([facility])[address] [place] [address] Neutrophils/100 WBC (Bld) 51.7 % Normal 38.0-82.0 [facility] Comment on above: Performed By: #### L [id number] ####Insurance Billing Specialist: VELMA VALADEZ ([phone])[facility] ([facility])[address] [place] [address] NRBC 0.0 /100 WBCs Normal 0.0-2.0 [facility] Comment on above: Performed By: #### L [id number] ####Insurance Billing Specialist: VELMA VALADEZ ([phone])[facility])[address] [place] [address] Platelet mean volume (Bld) [Entitic vol] 9.4 fL Normal 9.0-12.7 [facility] Comment on above: Performed By: #### L [id number] ####Insurance Billing Specialist: VELMA VALADEZ ([phone])[facility] ([facility])[address] [place] [address] Platelets (Bld) [#/Vol] 317 10*3/uL Normal 140-440 [facility] Comment on above: Performed By: #### L [id number] ####Insurance Billing Specialist: VELMA VALADEZ ([phone])[facility] ([facility])[address] [place] [address] RBC (Bld) [#/Vol] 2.89 10*6/uL Low 3.80-5.20 [facility] Comment on above: Performed By: #### L [id number] ####Insurance Billing Specialist: VELMA VALADEZ ([phone])[facility] ([facility])[address] [place] [address] WBC (Bld) [#/Vol] 4.2 10*3/uL Normal 3.6-10.7 [facility] Comment on above: Performed By: #### L [id number] ####Insurance Billing Specialist: VELMA VALADEZ ([phone])[facility] ([facility])[address] [place] [address] IDNon 04-13-2024 IDN Normal [facility] Laboratory - Coagulationon 0 04-13-2024 PT Coag (Bld) [Time] 24.2 s High 9.0 - 1 2.0 s [facility] Nursing Noteon 04-13-2024 Nursing Note AVS explained. Discharged patient on stable condition. Normal [facility] Nursing Note Instructed patient o n warfarin dosing, she will take 7.5mg tomorrow, and 5mg Tuesday, and then we will check INR with home care on Tuesday as instructed. Normal [facility] PROTHROMBIN TIMEon INR Coag (PPP) [Relative time] 2.3 {INR} High 0.9-1.1 [facility] Comment on above: Result Comment: Timothy mmended [...] Myocardial Infarction Performed By: #### L [id number], [id number] ####Insurance Billing Specialist: VELMA VALADEZ ([phone])[facility] ([facility])[address] [place] [address] PT Coag (PPP) [Time] 24.2 s High 9.0-12.0 [facility] Comment on above: Performed By: #### L [id number], [id number] ####Insurance Billing Specialist: VELMA VALADEZ ([phone])[facility] ([facility])[address] [place] [address] PT Coag (Bld) [Time]on 04-13 INR Coag (PPP) [Relative time] 2.3 {INR} High 0.9 - 1.1 [facility] Comment on above: Recommended Anticoag ulant Therapy: [...] Interpretation and review of laboratory results Abnormal [facility] Progress Noteon 04-13-2024 Progress Note Normal [facility] Progress Note Normal [facility] Progress Note Normal [facility] aPTT Coag (Bld) [Time]Ordere d By: Melayn Tejeda on 04-13-2024 aPTT Coag (PPP) [Time] 132.2 s Critically high 20 .0 - 30.5 s [facility] Interpretation and review of laboratory results Abnormal [facility] NOTE: The therapeuti c time for Heparin anticoagulation, based on Xa activity inhibition, is an APTT of 46-80 seconds. [facility] BASIC METABOLIC PANELon 03-19 Anion gap [Moles/Vol] 3 mmol/L Normal 3-13 [facility] Comment on above: Performed By: #### L [id number] ####Insurance Billing Specialist: VELMA VALADEZ ([phone])[facility])[address] [place] [address] Calcium [Mass/Vol] 9.3 mg/dL Normal 8.4-10.4 [facility] Comment on above: Performed By: #### L [id number] ####Insurance Billing Specialist: VELMA VALADEZ ([phone])[facility] [place] [address] [place] Chloride [Moles/Vol] 108 mmol/L High 98-107 [facility] Comment on above: Performed By: #### L [id number] ####Insurance Billing Specialist: VELMA VALADEZ ([phone])[facility] ([facility])[address] [place] [address] [place] CO2 [Moles/Vol] 24 mmol/L Normal 22-30 [facility] Comment on above: Performed By: #### L [id number] ####Insurance Billing Specialist: VELMA VALADEZ ([phone])[facility] ([facility])[address] [place] [address] Creatinine [Mass/Vol] 0.99 mg/dL Normal 0.52-1.04 [facility] Comment on above: Performed By: #### L [id number] ####Insurance Billing Specialist: VELMA VALADEZ ([phone])[facility] ([facility])[address] [place] [address] [place] GLOMERULAR FILTRATION RATE ML/MIN/1.73 SQ M.PREDICTED 56.3 mL/min/1.73m*2 Low >60.0 [facility] Comment on above: Result Comment: Calc ulation based on the Chronic Kidney Disease Epidemiology Collaboration (CKD-EPI) equation refit without adjustment for race Performed By: #### L [id number] ####Insurance Billing Specialist: VELMA VALADEZ ([phone])[facility] ([facility])[address] [place] [address] Glucose [Mass/Vol] 101 mg/dL High 70-100 [facility] Comment on above: Performed By: #### L [id number] ####Insurance Billing Specialist: VELMA VALADEZ ([phone])[facility])[address] [place] [address] Potassium [Moles/Vol] 3.9 mmol/L Normal 3.5-5.1 [facility] Comment on above: Performed By: #### L [id number] ####Insurance Billing Specialist: VELMA VALADEZ ([phone])[facility] ([facility])[address] [place] [address] Sodium [Moles/Vol] 135 mmol/L Normal 135-145 [facility] Comment on above: Performed By: #### L [id number] ####Insurance Billing Specialist: VELMA VALADEZ ([phone])[facility])[address] [place] [address] Urea nitrogen [Mass/Vol] 16 mg/dL Normal 7-17 [facility] Comment on above: Performed By: #### L [id number] ####Insurance Billing Specialist: VELMA VALADEZ ([phone])[facility])[address] [place] [address] Basic metabolic 1998 panelon 04-12-2024 Anion gap [Moles/Vol] 3 mmol/L 3 - 13 mmol/L [facility] Calcium [Mass/Vol] 9.3 mg/dL 8.4 - 10. 4 mg/dL [facility] Chloride [Moles/Vol] 108 mmol/L High 98 - 10 7 mmol/L [facility] CO2 [Moles/Vol] 24 mmol/L 22 - 30 mmol/L [facility] Creatinine [Mass/Vol] 0.99 mg/dL 0.52 - 1.04 mg/dL [facility] GFR/1.73 sq M.predicted (S/P/Bld) [Vol rate/Area] 56.3 mL/min Low - PINF [facility] Comment on above: Calculation based on the Chronic Kidney Disease Epidemiology Collaboration (CKD-EPI) equation refit without adjustment for race Glucose [Mass/Vol] 101 mg/dL High 70 - 100 mg/dL [facility] Interpretation and review of laboratory results Abnormal [facility] Potassium [Moles/Vol] 3.9 mmol/L 3.5 - 5.1 mmol/L [facility] Sodium [Moles/Vol] 135 mmol/L 135 - 145 mmol/L [facility] Urea nitrogen [Mass/Vol] 16 mg/dL 7 - 17 mg/dL [facility] CARECOORDon 04-12-2024 CARECOSEDALIA Normal [facility] CBC W Auto Differential pane l (Bld)on 04-12-2024 Basophils (Bld) [#/Vol] 0.0 10*3/uL 0.0 - 0.2 10*3/uL [facility] Basophils/100 WBC (Bld) 0.5 % 0.0 - 2.0 % [facility] Eosinophils (Bld) [#/Vol] 0.1 10*3/uL 0.0 - 0.5 10*3/uL [facility] Eosinophils/100 WBC (Bld) 2.4 % 0.0 - 6.0 % [facility] Erythrocyte distribution width (RBC) [Ratio] 14.8 % 11.5 - 15.0 % [facility] Hematocrit (Bld) [Volume fraction] 28.3 % Low 35.0 - 47.0 % [facility] Hemoglobin (Bld) [Mass/Vol] 9.3 g/dL Low 11.7 - 16.0 g/dL [facility] Immature granulocytes (Bld) [#/Vol] 0.0 10*3/uL NINF - 0.1 10*3/uL [facility] Immature granulocytes/100 WBC (Bld) 0.2 % 0.0 - 2.0 % [facility] Interpretation and review of laboratory results Abnormal [facility] Lymphocytes (Bld) [#/Vol] 1.4 10*3/uL 1.0 - 4.3 10*3/uL [facility] Lymphocytes/100 WBC (Bld) 33.0 % 15.0 - 45.0 % [facility] MCH (RBC) [Entitic mass] 30.4 pg 26.0 - 34.0 pg [facility] MCHC (RBC) [Mass/Vol] 32.9 % 30.5 - 36.0 % [facility] MCV (RBC) [Entitic vol] 92.5 fL 77.0 - 99.0 fL [facility] Monocytes (Bld) [#/Vol] 0.5 10*3/uL 0.0 - 0.9 10*3/uL [facility] Monocytes/100 WBC (Bld) 11.9 % 5.0 - 13.0 % [facility] Neutrophils (Bld) [#/Vol] 2.1 10*3/uL 1.8 - 7.5 10*3/uL [facility] Neutrophils/100 WBC (Bld) 52.0 % 38.0 - 82.0 % [facility] Nucleated RBC/100 WBC (Bld) [Ratio] 0.0 % [facility] Platelet mean volume (Bld) [Entitic vol] 9.5 fL 9.0 - 12.7 fL [facility] Platelets (Bld) [#/Vol] 307 10*3/uL 140 - 440 10*3/uL [facility] RBC (Bld) [#/Vol] 3.06 10*6/uL Low 3.80 - 5.2 0 10*6/uL [facility] WBC (Bld) [#/Vol] 4.1 10*3/uL 3.6 - 10.7 10*3/uL [facility] CBC WITH AUTO DIFFERENTIALon 04-12-2024 Basophils (Bld) [#/Vol] 0.0 10*3/uL Normal 0.0-0.2 [facility] Comment on above: Performed By: #### L [id number] ####Insurance Billing Specialist: VELMA VALADEZ ([phone])[facility] ([address] Basophils/100 WBC (Bld) 0.5 % Normal 0.0-2.0 S [facility] Comment on above: Performed By: #### L [id number] ####Insurance Billing Specialist: VELMA VALADEZ ([phone])[address] Eosinophils (Bld) [#/Vol] 0.1 10*3/uL Normal 0.0-0.5 [facility] Comment on above: Performed By: #### L [id number] ####Insurance Billing Specialist: VELMA VALADEZ ([phone])[address] Eosinophils/100 WBC (Bld) 2.4 % Normal 0.0-6.0 [facility] Comment on above: Performed By: #### L [id number] ####Insurance Billing Specialist: VELMA VALADEZ ([phone])[address] Erythrocyte distribution width (RBC) [Ratio] 14.8 % Normal 11.5-15.0 [facility] Comment on above: Performed By: #### L [id number] ####Insurance Billing Specialist: VELMA VALADEZ ([phone])[address] Hematocrit (Bld) [Volume fraction] 28.3 % Low 35.0-47.0 [facility] Comment on above: Performed By: #### L [id number] ####Insurance Billing Specialist: VELMA VALADEZ ([phone])[address] Hemoglobin (Bld) [Mass/Vol] 9.3 g/dL Low 11.7-16.0 [facility] Comment on above: Performed By: #### L [id number] ####Insurance Billing Specialist: VELMA VALADEZ ([phone])[address] IMMATURE GRANS % 0.2 % Normal 0.0-2.0 [facility] Comment on above: Performed By: #### L [id number] ####Insurance Billing Specialist: VELMA VALADEZ ([phone])[facility])[address] [place] [address] IMMATURE GRANS ABSOLUTE 0.0 10*3/uL Normal <0.1 [facility] Comment on above: Performed By: #### L [id number] ####Insurance Billing Specialist: VELMA VALADEZ ([phone])[facility])[address] [place] [address] Lymphocytes (Bld) [#/Vol] 1.4 10*3/uL Normal 1.0-4.3 [facility] Comment on above: Performed By: #### L [id number] ####Insurance Billing Specialist: VELMA VALADEZ ([phone])[facility])[address] [place] [address] Lymphocytes/100 WBC (Bld) 33.0 % Normal 15.0-45.0 [facility] Comment on above: Performed By: #### L [id number] ####Insurance Billing Specialist: VELMA VALADEZ ([phone])[facility])[address] [place] [address] MCH (RBC) [Entitic mass] 30.4 pg Normal 26.0-34.0 [facility] Comment on above: Performed By: #### L [id number] ####Insurance Billing Specialist: VELMA VALADEZ ([phone])[facility])[address] [place] [address] MCHC 32.9 % Normal 30.5-36.0 [facility] Comment on above: Performed By: #### L [id number] ####Insurance Billing Specialist: VELMA VALADEZ ([phone])[facility])[address] [place] [address] MCV (RBC) [Entitic vol] 92.5 fL Normal 77.0-99.0 [facility] Comment on above: Performed By: #### L [id number] ####Insurance Billing Specialist: VELMA VALADEZ ([phone])[facility])[address] [place] [address] Monocytes (Bld) [#/Vol] 0.5 10*3/uL Normal 0.0-0.9 [facility] Comment on above: Performed By: #### L [id number] ####Insurance Billing Specialist: VELMA VALADEZ ([phone])[facility] ([facility])[address] [place] [address] Monocytes/100 WBC (Bld) 11.9 % Normal 5.0-13.0 [facility] Comment on above: Performed By: #### L [id number] ####Insurance Billing Specialist: VELMA VALADEZ ([phone])[facility] ([facility])[address] [place] [address] NEUTROPHILS ABSOLUTE 2.1 10*3/uL Normal 1.8-7.5 [facility] Comment on above: Performed By: #### L [id number] ####Insurance Billing Specialist: VELMA VALADEZ ([phone])[facility] ([facility])[address] [place] [address] Neutrophils/100 WBC (Bld) 52.0 % Normal 38.0-82.0 [facility] Comment on above: Performed By: #### L [id number] ####Insurance Billing Specialist: VELMA VALADEZ ([phone])[facility] ([facility])[address] [place] [address] NRBC 0.0 /100 WBCs Normal 0.0-2.0 [facility] Comment on above: Performed By: #### L [id number] ####Insurance Billing Specialist: VELMA VALADEZ ([phone])[facility] ([facility])[address] [place] [address] Platelet mean volume (Bld) [Entitic vol] 9.5 fL Normal 9.0-12.7 [facility] Comment on above: Performed By: #### L [id number] ####Insurance Billing Specialist: VELMA VALADEZ ([phone])[facility] ([facility])[address] [place] [address] Platelets (Bld) [#/Vol] 307 10*3/uL Normal 140-440 [facility] Comment on above: Performed By: #### L [id number] ####Insurance Billing Specialist: VELMA VALADEZ ([phone])[facility])[address] [place] [address] RBC (Bld) [#/Vol] 3.06 10*6/uL Low 3.80-5.20 [facility] Comment on above: Performed By: #### L [id number] ####Insurance Billing Specialist: VELMA VALADEZ ([phone])[facility])[address] [place] [address] WBC (Bld) [#/Vol] 4.1 10*3/uL Normal 3.6-10.7 [facility] Comment on above: Performed By: #### L [id number] ####Insurance Billing Specialist: VELMA VALADEZ ([phone])[facility])[address] [place] [address] IDNon 04-12-2024 IDN Normal [facility] IDN Normal [facility] Laboratory - Coagulationon 0 04-12-2024 PT Coag (Bld) [Time] 20.3 s High 9.0 - 1 2.0 s [facility] PROTHROMBIN TIMEon INR Coag (PPP) [Relative time] 1.9 {INR} High 0.9-1.1 [facility] Comment on above: Result Comment: Timothy mmended [...] Myocardial Infarction Performed By: #### L [id number] ####Insurance Billing Specialist: VELMA VALADEZ ([phone])[facility] ([facility])[address] [place] [address] PT Coag (PPP) [Time] 20.3 s High 9.0-12.0 [facility] Comment on above: Performed By: #### L [id number] ####Insurance Billing Specialist: VELMA VALADEZ ([phone])[facility])[address] [place] [address] PT Coag (Bld) [Time]on 04-12 INR Coag (PPP) [Relative time] 1.9 {INR} High 0.9 - 1.1 [facility] Comment on above: Recommended Anticoag ulant Therapy: [...] Interpretation and review of laboratory results Abnormal [facility] Progress Noteon 04-12-2024 Progress Note Normal [facility] Progress Note Normal [facility] APTTon 04-11-2024 aPTT Coag (Bld) [Time] 62.7 s High 20.0-30.5 [facility] Comment on above: Result Comment: BUBBA Garcia COMMENTS:NOTE: The therapeutic time for Heparin anticoagulation, based on Xa activity inhibition, is an APTT of 46-80 seconds. Performed By: #### L [id number] ####Insurance Billing Specialist: VELMA VALADEZ ([phone])[facility])[address] [place] [address] aPTT Coag (Bld) [Time] 69.0 s High 20.0-30.5 [facility] Comment on above: Result Comment: BUBBA Garcia COMMENTS:NOTE: The therapeutic time for Heparin anticoagulation, based on Xa activity inhibition, is an APTT of 46-80 seconds. Performed By: #### L [id number], [id number] ####Insurance Billing Specialist: VELMA VALADEZ ([phone])[facility] [place] [address] BASIC METABOLIC PANELon 03-19 Anion gap [Moles/Vol] 4 mmol/L Normal 3-13 [facility] Comment on above: Performed By: #### L [id number] ####Insurance Billing Specialist: VELMA VALADEZ ([phone])[facility] ([facility])[address] [place] [address] Calcium [Mass/Vol] 8.8 mg/dL Normal 8.4-10.4 [facility] Comment on above: Performed By: #### L [id number] ####Insurance Billing Specialist: VELMA VALADEZ ([phone])[facility] [place] [address] [place] Chloride [Moles/Vol] 108 mmol/L High 98-107 [facility] Comment on above: Performed By: #### L [id number] ####Insurance Billing Specialist: VELMA VALADEZ ([phone])[facility] [place] [address] [place] CO2 [Moles/Vol] 22 mmol/L Normal 22-30 [facility] Comment on above: Performed By: #### L [id number] ####Insurance Billing Specialist: VELMA VALADEZ ([phone])[facility] [place] [address] [place] Creatinine [Mass/Vol] 1.01 mg/dL Normal 0.52-1.04 [facility] Comment on above: Performed By: #### L [id number] ####Insurance Billing Specialist: VELMA VALADEZ ([phone])[facility] [place] [address] [place] GLOMERULAR FILTRATION RATE ML/MIN/1.73 SQ M.PREDICTED 55.0 mL/min/1.73m*2 Low >60.0 [facility] Comment on above: Result Comment: Calc ulation based on the Chronic Kidney Disease Epidemiology Collaboration (CKD-EPI) equation refit without adjustment for race Performed By: #### L [id number] ####Insurance Billing Specialist: VELMA VALADEZ ([phone])[facility] [place] [address] [place] Glucose [Mass/Vol] 112 mg/dL High 70-100 [facility] Comment on above: Performed By: #### L [id number] ####Insurance Billing Specialist: VELMA VALADEZ ([phone])[facility])[address] [place] [address] Potassium [Moles/Vol] 4.0 mmol/L Normal 3.5-5.1 [facility] Comment on above: Performed By: #### L [id number] ####Insurance Billing Specialist: VELMA VALADEZ ([phone])[facility])[address] [place] [address] Sodium [Moles/Vol] 134 mmol/L Low 135-145 [facility] Comment on above: Performed By: #### L [id number] ####Insurance Billing Specialist: VELMA VALADEZ ([phone])[facility])[address] [place] [address] Urea nitrogen [Mass/Vol] 16 mg/dL Normal 7-17 [facility] Comment on above: Performed By: #### L [id number] ####Insurance Billing Specialist: VELMA VALADEZ ([phone])[facility] ([facility])[address] [place] [address] Basic metabolic 1998 panelon 04-11-2024 Anion gap [Moles/Vol] 4 mmol/L 3 - 13 mmol/L [facility] Calcium [Mass/Vol] 8.8 mg/dL 8.4 - 10. 4 mg/dL [facility] Chloride [Moles/Vol] 108 mmol/L High 98 - 10 7 mmol/L [facility] CO2 [Moles/Vol] 22 mmol/L 22 - 30 mmol/L [facility] Creatinine [Mass/Vol] 1.01 mg/dL 0.52 - 1.04 mg/dL [facility] GFR/1.73 sq M.predicted (S/P/Bld) [Vol rate/Area] 55.0 mL/min Low - PINF [facility] Comment on above: Calculation based on the Chronic Kidney Disease Epidemiology Collaboration (CKD-EPI) equation refit without adjustment for race Glucose [Mass/Vol] 112 mg/dL High 70 - 100 mg/dL [facility] Interpretation and review of laboratory results Abnormal [facility] Potassium [Moles/Vol] 4.0 mmol/L 3.5 - 5.1 mmol/L [facility] Sodium [Moles/Vol] 134 mmol/L Low 135 - 145 mmol/L [facility] Urea nitrogen [Mass/Vol] 16 mg/dL 7 - 17 mg/dL [facility] CARECOORDon 04-11-2024 CARECOORD Normal [facility] CBC W Auto Differential pane l (Bld)on 04-11-2024 Basophils (Bld) [#/Vol] 0.0 10*3/uL 0.0 - 0.2 10*3/uL [facility] Basophils/100 WBC (Bld) 0.9 % 0.0 - 2.0 % [facility] Eosinophils (Bld) [#/Vol] 0.1 10*3/uL 0.0 - 0.5 10*3/uL [facility] Eosinophils/100 WBC (Bld) 2.0 % 0.0 - 6.0 % [facility] Erythrocyte distribution width (RBC) [Ratio] 14.8 % 11.5 - 15.0 % [facility] Hematocrit (Bld) [Volume fraction] 24.6 % Low 35.0 - 47.0 % [facility] Hemoglobin (Bld) [Mass/Vol] 8.3 g/dL Low 11.7 - 16.0 g/dL [facility] Immature granulocytes (Bld) [#/Vol] 0.0 10*3/uL NINF - 0.1 10*3/uL [facility] Immature granulocytes/100 WBC (Bld) 0.2 % 0.0 - 2.0 % [facility] Interpretation and review of laboratory results Abnormal [facility] Lymphocytes (Bld) [#/Vol] 1.4 10*3/uL 1.0 - 4.3 10*3/uL [facility] Lymphocytes/100 WBC (Bld) 31.9 % 15.0 - 45.0 % [facility] MCH (RBC) [Entitic mass] 30.5 pg 26.0 - 34.0 pg [facility] MCHC (RBC) [Mass/Vol] 33.7 % 30.5 - 36.0 % [facility] MCV (RBC) [Entitic vol] 90.4 fL 77.0 - 99.0 fL [facility] Monocytes (Bld) [#/Vol] 0.5 10*3/uL 0.0 - 0.9 10*3/uL [facility] Monocytes/100 WBC (Bld) 11.2 % 5.0 - 13.0 % [facility] Neutrophils (Bld) [#/Vol] 2.4 10*3/uL 1.8 - 7.5 10*3/uL [facility] Neutrophils/100 WBC (Bld) 53.8 % 38.0 - 82.0 % [facility] Nucleated RBC/100 WBC (Bld) [Ratio] 0.0 % [facility] Platelet mean volume (Bld) [Entitic vol] 10.0 fL 9.0 - 12.7 fL [facility] Platelets (Bld) [#/Vol] 244 10*3/uL 140 - 440 10*3/uL [facility] RBC (Bld) [#/Vol] 2.72 10*6/uL Low 3.80 - 5.2 0 10*6/uL [facility] WBC (Bld) [#/Vol] 4.5 10*3/uL 3.6 - 10.7 10*3/uL [facility] CBC WITH AUTO DIFFERENTIALon 04-11-2024 Basophils (Bld) [#/Vol] 0.0 10*3/uL Normal 0.0-0.2 [facility] Comment on above: Performed By: #### L [id number] ####Insurance Billing Specialist: VELMA VALADEZ ([phone])[facility] ([facility])[address] [place] [address] Basophils/100 WBC (Bld) 0.9 % Normal 0.0-2.0 [facility] Comment on above: Performed By: #### L [id number] ####Insurance Billing Specialist: VELMA VALADEZ ([phone])[facility] ([facility])[address] [place] [address] [place] Eosinophils (Bld) [#/Vol] 0.1 10*3/uL Normal 0.0-0.5 [facility] Comment on above: Performed By: #### L [id number] ####Insurance Billing Specialist: VELMA VALADEZ ([phone])[facility] ([facility])[address] [place] [address] [place] Eosinophils/100 WBC (Bld) 2.0 % Normal 0.0-6.0 [facility] Comment on above: Performed By: #### L [id number] ####Insurance Billing Specialist: VELMA VALADEZ ([phone])[address] Erythrocyte distribution width (RBC) [Ratio] 14.8 % Normal 11.5-15.0 [facility] Comment on above: Performed By: #### L [id number] ####Insurance Billing Specialist: VELMA VALADEZ ([phone])[address] Hematocrit (Bld) [Volume fraction] 24.6 % Low 35.0-47.0 [facility] Comment on above: Performed By: #### L [id number] ####Insurance Billing Specialist: VELMA VALADEZ ([phone])[address] Hemoglobin (Bld) [Mass/Vol] 8.3 g/dL Low 11.7-16.0 [facility] Comment on above: Performed By: #### L [id number] ####Insurance Billing Specialist: VELMA VALADEZ ([phone])[address] IMMATURE GRANS % 0.2 % Normal 0.0-2.0 [facility] Comment on above: Performed By: #### L [id number] ####Insurance Billing Specialist: VELMA VALADEZ ([phone])[address] IMMATURE GRANS ABSOLUTE 0.0 10*3/uL Normal <0.1 [facility] Comment on above: Performed By: #### L [id number] ####Insurance Billing Specialist: VELMA VAALDEZ ([phone])[address] Lymphocytes (Bld) [#/Vol] 1.4 10*3/uL Normal 1.0-4.3 [facility] Comment on above: Performed By: #### L [id number] ####Insurance Billing Specialist: VELMA VALADEZ ([phone])[facility])[address] [place] [address] Lymphocytes/100 WBC (Bld) 31.9 % Normal 15.0-45.0 [facility] Comment on above: Performed By: #### L [id number] ####Insurance Billing Specialist: VELMA VALADEZ ([phone])[facility])[address] [place] [address] MCH (RBC) [Entitic mass] 30.5 pg Normal 26.0-34.0 [facility] Comment on above: Performed By: #### L [id number] ####Insurance Billing Specialist: VELMA VALADEZ ([phone])[facility])[address] [place] [address] MCHC 33.7 % Normal 30.5-36.0 [facility] Comment on above: Performed By: #### L [id number] ####Insurance Billing Specialist: VELMA VALADEZ ([phone])[facility] ([facility])[address] [place] [address] MCV (RBC) [Entitic vol] 90.4 fL Normal 77.0-99.0 [facility] Comment on above: Performed By: #### L [id number] ####Insurance Billing Specialist: VELMA VALADEZ ([phone])[facility])[address] [place] [address] Monocytes (Bld) [#/Vol] 0.5 10*3/uL Normal 0.0-0.9 [facility] Comment on above: Performed By: #### L [id number] ####Insurance Billing Specialist: VELMA VALADEZ ([phone])[facility])[address] [place] [address] Monocytes/100 WBC (Bld) 11.2 % Normal 5.0-13.0 [facility] Comment on above: Performed By: #### L [id number] ####Insurance Billing Specialist: VELMA VALADEZ ([phone])[facility])[address] [place] [address] NEUTROPHILS ABSOLUTE 2.4 10*3/uL Normal 1.8-7.5 [facility] Comment on above: Performed By: #### L [id number] ####Insurance Billing Specialist: VELMA VALADEZ ([phone])[facility] ([facility])[address] [place] [address] Neutrophils/100 WBC (Bld) 53.8 % Normal 38.0-82.0 [facility] Comment on above: Performed By: #### L [id number] ####Insurance Billing Specialist: VELMA VALADEZ ([phone])[facility] ([facility])[address] [place] [address] NRBC 0.0 /100 WBCs Normal 0.0-2.0 [facility] Comment on above: Performed By: #### L [id number] ####Insurance Billing Specialist: VELMA VALADEZ ([phone])[facility] ([facility])[address] [place] [address] Platelet mean volume (Bld) [Entitic vol] 10.0 fL Normal 9.0-12.7 [facility] Comment on above: Performed By: #### L [id number] ####Insurance Billing Specialist: VELMA VALADEZ ([phone])[facility] ([facility])[address] [place] [address] Platelets (Bld) [#/Vol] 244 10*3/uL Normal 140-440 [facility] Comment on above: Performed By: #### L [id number] ####Insurance Billing Specialist: VELMA VALADEZ ([phone])[facility] ([facility])[address] [place] [address] [place] RBC (Bld) [#/Vol] 2.72 10*6/uL Low 3.80-5.20 [facility] Comment on above: Performed By: #### L [id number] ####Insurance Billing Specialist: VELMA VALADEZ ([phone])[facility] ([facility])[address] [place] [address] [place] WBC (Bld) [#/Vol] 4.5 10*3/uL Normal 3.6-10.7 [facility] Comment on above: Performed By: #### [place] [id number] ####Insurance Billing Specialist: VELMA VALADEZ ([phone])[facility] ([facility])[address] [place] [address] [place] IDNon 04-11-2024 IDN Normal [facility] IDN Normal [facility] Laboratory - Coagulationon 0 04-11-2024 PT Coag (Bld) [Time] 20.9 s High 9.0 - 1 2.0 s [facility] No Panel Informationon 04-11 Interpretation and review of laboratory results Abnormal [facility] PROTHROMBIN TIMEon INR Coag (PPP) [Relative time] 1.9 {INR} High 0.9-1.1 [facility] Comment on above: Result Comment: Timothy mmended [...] Myocardial Infarction Performed By: #### L [id number], [id number] ####Insurance Billing Specialist: VELMA VALADEZ ([phone])[facility] ([facility])[address] [place] [address] PT Coag (PPP) [Time] 20.9 s High 9.0-12.0 [facility] Comment on above: Performed By: #### L [id number], [id number] ####Insurance Billing Specialist: VELMA VALADEZ ([phone])[facility])[address] [place] [address] [place] PT Coag (Bld) [Time]on 04-11 INR Coag (PPP) [Relative time] 1.9 {INR} High 0.9 - 1.1 [facility] Comment on above: Recommended Anticoag ulant Therapy: [...] Infarction Progress Noteon 04-11-2024 Progress Note Normal [facility] Progress Note Normal [facility] Progress Note Normal [facility] Progress Note Normal [facility] aPTT Coag (Bld) [Time]on aPTT Coag (PPP) [Time] 62.7 s High 20.0 - 30.5 s [facility] Interpretation and review of laboratory results Abnormal [facility] NOTE: The therapeuti c time for Heparin anticoagulation, based on Xa activity inhibition, is an APTT of 46-80 seconds. [facility] aPTT Coag (PPP) [Time] 69.0 s High 20.0 - 30.5 s [facility] NOTE: The therapeuti c time for Heparin anticoagulation, based on Xa activity inhibition, is an APTT of 46-80 seconds. [facility] APTTon 04-10-2024 aPTT Coag (Bld) [Time] 59.0 s High 20.0-30.5 [facility] Comment on above: Result Comment: BUBBA Garcia COMMENTS:NOTE: The therapeutic time for Heparin anticoagulation, based on Xa activity inhibition, is an APTT of 46-80 seconds. Performed By: #### L [id number] ####Insurance Billing Specialist: VELMA VALADEZ ([phone])[facility] ([facility] aPTT Coag (Bld) [Time] 77.3 s High 20.0-30.5 [facility] Comment on above: Result Comment: BUBBA Garcia COMMENTS:NOTE: The therapeutic time for Heparin anticoagulation, based on Xa activity inhibition, is an APTT of 46-80 seconds. Performed By: #### L [id number], [id number] ####Insurance Billing Specialist: VELMA VALADEZ ([phone])[facility] ([facility])[address] [place] [address] BASIC METABOLIC PANELon 09-2 Anion gap [Moles/Vol] 3 mmol/L Normal 3-13 [facility] Comment on above: Performed By: #### L AB15 ####Insurance Billing Specialist: VELMA VALADEZ ([phone])[facility] [place] [address] Calcium [Mass/Vol] 9.0 mg/dL Normal 8.4-10.4 [facility] Comment on above: Performed By: #### L AB15 ####Insurance Billing Specialist: VELMA VALADEZ ([phone])[facility])[address] [place] [address] Chloride [Moles/Vol] 111 mmol/L High 98-107 [facility] Comment on above: Performed By: #### L AB15 ####Insurance Billing Specialist: VELMA VALADEZ ([phone])[facility] ([facility])[address] [place] [address] CO2 [Moles/Vol] 21 mmol/L Low 22-30 [facility] Comment on above: Performed By: #### L AB15 ####Insurance Billing Specialist: VELMA VALADEZ ([phone])[facility] ([facility])[address] [place] [address] Creatinine [Mass/Vol] 1.00 mg/dL Normal 0.52-1.04 [facility] Comment on above: Performed By: #### L AB15 ####Insurance Billing Specialist: VELMA VALADEZ ([phone])[facility] [place] [address] [place] GLOMERULAR FILTRATION RATE ML/MIN/1.73 SQ M.PREDICTED 55.7 mL/min/1.73m*2 Low >60.0 [facility] Comment on above: Result Comment: Calc ulation based on the Chronic Kidney Disease Epidemiology Collaboration (CKD-EPI) equation refit without adjustment for race Performed By: #### L AB15 ####Insurance Billing Specialist: VELMA VALADEZ ([phone])[facility] [place] [address] Glucose [Mass/Vol] 101 mg/dL High 70-100 [facility] Comment on above: Performed By: #### L AB15 ####Insurance Billing Specialist: VELMA VALADEZ ([phone])[facility] ([facility])[address] [place] [address] Potassium [Moles/Vol] 3.8 mmol/L Normal 3.5-5.1 [facility] Comment on above: Performed By: #### L [id number] ####Insurance Billing Specialist: VELMA VALADEZ ([phone])[facility] ([facility])[address] [place] [address] Sodium [Moles/Vol] 136 mmol/L Normal 135-145 [facility] Comment on above: Performed By: #### L [id number] ####Insurance Billing Specialist: VELMA VALADEZ ([phone])[facility] ([facility] [place] [address] Urea nitrogen [Mass/Vol] 15 mg/dL Normal 7-17 [facility] Comment on above: Performed By: #### L [id number] ####Insurance Billing Specialist: VELMA VALADEZ ([phone])[facility])[address] [place] [address] Basic metabolic 1998 panelon 04-10-2024 Anion gap [Moles/Vol] 3 mmol/L 3 - 13 mmol/L [facility] Calcium [Mass/Vol] 9.0 mg/dL 8.4 - 10. 4 mg/dL [facility] Chloride [Moles/Vol] 111 mmol/L High 98 - 10 7 [facility]/L [facility] [place] CO2 [Moles/Vol] 21 mmol/L Low 22 - 30 mmol/L [facility] [place] Creatinine [Mass/Vol] 1.00 mg/dL 0.52 - 1.04 mg/dL [facility] [place] GFR/1.73 sq M.predicted (S/P/Bld) [Vol rate/Area] 55.7 mL/min Low - PINF [facility] [place] Comment on above: Calculation based on the Chronic Kidney Disease Epidemiology Collaboration (CKD-EPI) equation refit without adjustment for race Glucose [Mass/Vol] 101 mg/dL High 70 - 100 mg/dL [facility] [place] Interpretation and review of laboratory results Abnormal [facility] [place] Potassium [Moles/Vol] 3.8 mmol/L 3.5 - 5.1 mmol/L [facility] [place] Sodium [Moles/Vol] 136 mmol/L 135 - 145 mmol/L [facility] [place] Urea nitrogen [Mass/Vol] 15 mg/dL 7 - 17 mg/dL [facility] CARECOORDon 04-10-2024 CARECOORD Normal [facility] [place] [facility] CBC W Auto Differential pane l (Bld)on 04-10-2024 Basophils (Bld) [#/Vol] 0.0 10*3/uL 0.0 - 0.2 10*3/uL [facility] [place] Basophils/100 WBC (Bld) 0.7 % 0.0 - 2.0 % [facility] [place] Eosinophils (Bld) [#/Vol] 0.1 10*3/uL 0.0 - 0.5 10*3/uL [facility] [place] Eosinophils/100 WBC (Bld) 2.1 % 0.0 - 6.0 % [facility] [place] Erythrocyte distribution width (RBC) [Ratio] 14.7 % 11.5 - 15.0 % [facility] [place] Hematocrit (Bld) [Volume fraction] 26.0 % Low 35.0 - 47.0 % [facility] [place] Hemoglobin (Bld) [Mass/Vol] 8.6 g/dL Low 11.7 - 16.0 g/dL [facility] [place] Immature granulocytes (Bld) [#/Vol] 0.0 10*3/uL NINF - 0.1 10*3/uL [facility] [place] Immature granulocytes/100 WBC (Bld) 0.2 % 0.0 - 2.0 % [facility] [place] Interpretation and review of laboratory results Abnormal [facility] [place] Lymphocytes (Bld) [#/Vol] 1.4 10*3/uL 1.0 - 4.3 10*3/uL [facility] [place] Lymphocytes/100 WBC (Bld) 32.9 % 15.0 - 45.0 % [facility] [place] MCH (RBC) [Entitic mass] 30.1 pg 26.0 - 34.0 pg [facility] [place] MCHC (RBC) [Mass/Vol] 33.1 % 30.5 - 36.0 % [facility] [place] MCV (RBC) [Entitic vol] 90.9 fL 77.0 - 99.0 fL [facility] [place] Monocytes (Bld) [#/Vol] 0.6 10*3/uL 0.0 - 0.9 10*3/uL [facility] [place] Monocytes/100 WBC (Bld) 13.6 % High 5.0 - 13.0 % [facility] [place] Neutrophils (Bld) [#/Vol] 2.1 10*3/uL 1.8 - 7.5 10*3/uL [facility] [place] Neutrophils/100 WBC (Bld) 50.5 % 38.0 - 82.0 % [facility] [place] Nucleated RBC/100 WBC (Bld) [Ratio] 0.0 % [facility] [place] Platelet mean volume (Bld) [Entitic vol] 10.0 fL 9.0 - 12.7 fL [facility] [place] Platelets (Bld) [#/Vol] 238 10*3/uL 140 - 440 10*3/uL [facility] [place] RBC (Bld) [#/Vol] 2.86 10*6/uL Low 3.80 - 5.2 0 10*6/uL [facility] [place] WBC (Bld) [#/Vol] 4.3 10*3/uL 3.6 - 10.7 10*3/uL [facility] CBC WITH AUTO DIFFERENTIALon 04-10-2024 Basophils (Bld) [#/Vol] 0.0 10*3/uL Normal 0.0-0.2 [facility] Comment on above: Performed By: #### L [id number] ####Insurance Billing Specialist: VELMA VALADEZ ([phone])[address] Basophils/100 WBC (Bld) 0.7 % Normal 0.0-2.0 [facility] Comment on above: Performed By: #### L [id number] ####Insurance Billing Specialist: VELMA VALADEZ ([phone])[facility])[address] [place] [address] Eosinophils (Bld) [#/Vol] 0.1 10*3/uL Normal 0.0-0.5 [facility] Comment on above: Performed By: #### L [id number] ####Insurance Billing Specialist: VELMA VALDAEZ ([phone])[facility])[address] [place] [address] Eosinophils/100 WBC (Bld) 2.1 % Normal 0.0-6.0 [facility] Comment on above: Performed By: #### L [id number] ####Insurance Billing Specialist: VELMA VALADEZ ([phone])[facility])[address] [place] [address] Erythrocyte distribution width (RBC) [Ratio] 14.7 % Normal 11.5-15.0 [facility] Comment on above: Performed By: #### L [id number] ####Insurance Billing Specialist: VELMA VALADEZ ([phone])[address] Hematocrit (Bld) [Volume fraction] 26.0 % Low 35.0-47.0 [facility] Comment on above: Performed By: #### L [id number] ####Insurance Billing Specialist: VELMA VALADEZ ([phone])[facility])[address] [place] [address] Hemoglobin (Bld) [Mass/Vol] 8.6 g/dL Low 11.7-16.0 [facility] Comment on above: Performed By: #### L [id number] ####Insurance Billing Specialist: VELMA VALADEZ ([phone])[facility])[address] [place] [address] IMMATURE GRANS % 0.2 % Normal 0.0-2.0 [facility] Comment on above: Performed By: #### L [id number] ####Insurance Billing Specialist: VELMA VALADEZ ([phone])[facility])[address] [place] [address] IMMATURE GRANS ABSOLUTE 0.0 10*3/uL Normal <0.1 [facility] Comment on above: Performed By: #### L [id number] ####Insurance Billing Specialist: VELMA VALADEZ ([phone])[facility])[address] [place] [address] Lymphocytes (Bld) [#/Vol] 1.4 10*3/uL Normal 1.0-4.3 [facility] Comment on above: Performed By: #### L [id number] ####Insurance Billing Specialist: VELMA VALADEZ ([phone])[facility])[address] [place] [address] Lymphocytes/100 WBC (Bld) 32.9 % Normal 15.0-45.0 [facility] Comment on above: Performed By: #### L [id number] ####Insurance Billing Specialist: VELMA VALADEZ ([phone])[facility])[address] [place] [address] MCH (RBC) [Entitic mass] 30.1 pg Normal 26.0-34.0 [facility] Comment on above: Performed By: #### L [id number] ####Insurance Billing Specialist: VELMA VALADEZ ([phone])[facility])[address] [place] [address] MCHC 33.1 % Normal 30.5-36.0 [facility] Comment on above: Performed By: #### L [id number] ####Insurance Billing Specialist: VELMA VALADEZ ([phone])[facility] ([facility])[address] [place] [address] MCV (RBC) [Entitic vol] 90.9 fL Normal 77.0-99.0 [facility] Comment on above: Performed By: #### L [id number] ####Insurance Billing Specialist: VELMA VALADEZ ([phone])[facility])[address] [place] [address] Monocytes (Bld) [#/Vol] 0.6 10*3/uL Normal 0.0-0.9 [facility] Comment on above: Performed By: #### L [id number] ####Insurance Billing Specialist: VELMA VALADEZ ([phone])[facility])[address] [place] [address] Monocytes/100 WBC (Bld) 13.6 % High 5.0-13.0 [facility] Comment on above: Performed By: #### L [id number] ####Insurance Billing Specialist: VELMA VALADEZ ([phone])[facility] ([facility])[address] [place] [address] NEUTROPHILS ABSOLUTE 2.1 10*3/uL Normal 1.8-7.5 [facility] Comment on above: Performed By: #### L [id number] ####Insurance Billing Specialist: VELMA VALADEZ ([phone])[facility] ([facility])[address] [place] [address] Neutrophils/100 WBC (Bld) 50.5 % Normal 38.0-82.0 [facility] Comment on above: Performed By: #### L [id number] ####Insurance Billing Specialist: VELMA VALADEZ ([phone])[facility] ([facility])[address] [place] [address] NRBC 0.0 /100 WBCs Normal 0.0-2.0 [facility] Comment on above: Performed By: #### L [id number] ####Insurance Billing Specialist: VELMA VALADEZ ([phone])[facility] ([facility])[address] [place] [address] Platelet mean volume (Bld) [Entitic vol] 10.0 fL Normal 9.0-12.7 [facility] Comment on above: Performed By: #### L [id number] ####Insurance Billing Specialist: VELMA VALADEZ ([phone])[facility] ([facility])[address] [place] [address] Platelets (Bld) [#/Vol] 238 10*3/uL Normal 140-440 [facility] Comment on above: Performed By: #### L [id number] ####Insurance Billing Specialist: VELMA VALADEZ ([phone])[facility] ([facility])[address] [place] [address] RBC (Bld) [#/Vol] 2.86 10*6/uL Low 3.80-5.20 [facility] Comment on above: Performed By: #### L [id number] ####Insurance Billing Specialist: VELMA VALADEZ ([phone])[facility])[address] [place] [address] WBC (Bld) [#/Vol] 4.3 10*3/uL Normal 3.6-10.7 [facility] Comment on above: Performed By: #### [place] [id number] ####Insurance Billing Specialist: VELMA VALADEZ ([phone])[facility] ([facility])[address] [place] [address] [place] IDNon 04-10-2024 IDN Normal [facility] Laboratory - Coagulationon 0 04-10-2024 PT Coag (Bld) [Time] 17.7 s High 9.0 - 1 2.0 s [facility] [place] No Panel Informationon 04-10 Interpretation and review of laboratory results Abnormal [facility] PROTHROMBIN TIMEon INR Coag (PPP) [Relative time] 1.6 {INR} High 0.9-1.1 [facility] Comment on above: Result Comment: Timothy mmended [...] Myocardial Infarction Performed By: #### [place] [id number], [id number] ####Insurance Billing Specialist: VELMA VALADEZ ([phone])[facility] ([facility])[address] [place] [address] [place] PT Coag (PPP) [Time] 17.7 s High 9.0-12.0 [facility] Comment on above: Performed By: #### [place] [id number], [id number] ####Insurance Billing Specialist: VELMA VALADEZ ([phone])[facility] ([facility])[address] [place] [address] PT Coag (Bld) [Time]on 04-10 INR Coag (PPP) [Relative time] 1.6 {INR} High 0.9 - 1.1 [facility] [place] Comment on above: Recommended Anticoag ulant Therapy: [...] Infarction Progress Noteon 04-10-2024 Progress Note Normal [facility] Progress Note Nutrition update completed. Chart reviewed. Patient to be monitored and followed by the diet laser technician. FADI Farrar Normal [facility] Progress Note Normal [facility] aPTT Coag (Bld) [Time]on aPTT Coag (PPP) [Time] 59.0 s High 20.0 - 30.5 s [facility] [place] Interpretation and review of laboratory results Abnormal [facility] [place] NOTE: The therapeuti c time for Heparin anticoagulation, based on Xa activity inhibition, is an APTT of 46-80 seconds. [facility] aPTT Coag (PPP) [Time] 77.3 s High 20.0 - 30.5 s [facility] [place] NOTE: The therapeuti c time for Heparin anticoagulation, based on Xa activity inhibition, is an APTT of 46-80 seconds. [facility] [place] APTTon 04-09-2024 aPTT Coag (Bld) [Time] 58.9 s High 20.0-30.5 [facility] Comment on above: Result Comment: BUBBA Garcia COMMENTS:NOTE: The therapeutic time for Heparin anticoagulation, based on Xa activity inhibition, is an APTT of 46-80 seconds. Performed By: #### L [id number] ####Insurance Billing Specialist: VELMA VALADEZ ([phone])[facility] ([facility] aPTT Coag (Bld) [Time] 64.6 s High 20.0-30.5 [facility] Comment on above: Result Comment: BUBBA Garcia COMMENTS:NOTE: The therapeutic time for Heparin anticoagulation, based on Xa activity inhibition, is an APTT of 46-80 seconds. Performed By: #### L [id number] ####Insurance Billing Specialist: VELMA VALADEZ ([phone])[facility])[address] [place] [address] aPTT Coag (Bld) [Time] 82.3 s High 20.0-30.5 [facility] Comment on above: Result Comment: BUBBA Garcia COMMENTS:NOTE: The therapeutic time for Heparin anticoagulation, based on Xa activity inhibition, is an APTT of 46-80 seconds. Performed By: #### L [id number], [id number] ####Insurance Billing Specialist: VELMA VALADEZ ([phone])[facility] ([facility])[address] [place] [address] BASIC METABOLIC PANELon 09-2 -2023 Anion gap [Moles/Vol] 5 mmol/L Normal 3-13 [facility] Comment on above: Performed By: #### L [id number] ####Insurance Billing Specialist: VELMA VALADEZ ([phone])[facility] ([facility])[address] [place] [address] Calcium [Mass/Vol] 8.9 mg/dL Normal 8.4-10.4 [facility] Comment on above: Performed By: #### L [id number] ####Insurance Billing Specialist: VELMA VALADEZ ([phone])[facility] ([facility])[address] [place] [address] Chloride [Moles/Vol] 116 mmol/L High 98-107 [facility] Comment on above: Performed By: #### L AB15 ####Insurance Billing Specialist: VELMA VALADEZ ([phone])[facility] ([facility])[address] [place] [address] [place] CO2 [Moles/Vol] 16 mmol/L Low 22-30 [facility] Comment on above: Performed By: #### L AB15 ####Insurance Billing Specialist: VELMA VALADEZ ([phone])[facility] ([facility])[address] [place] [address] Creatinine [Mass/Vol] 0.93 mg/dL Normal 0.52-1.04 [facility] Comment on above: Performed By: #### L AB15 ####Insurance Billing Specialist: VELMA VALADEZ ([phone])[facility])[address] [place] [address] GLOMERULAR FILTRATION RATE ML/MIN/1.73 SQ M.PREDICTED 60.7 mL/min/1.73m*2 Normal >60.0 [facility] Comment on above: Result Comment: Calc ulation based on the Chronic Kidney Disease Epidemiology Collaboration (CKD-EPI) equation refit without adjustment for race Performed By: #### L AB15 ####Insurance Billing Specialist: VELMA VALADEZ ([phone])[facility])[address] [place] [address] Glucose [Mass/Vol] 119 mg/dL High 70-100 [facility] Comment on above: Performed By: #### L AB15 ####Insurance Billing Specialist: VELMA VALADEZ ([phone])[facility] ([facility])[address] [place] [address] Potassium [Moles/Vol] 4.4 mmol/L Normal 3.5-5.1 [facility] Comment on above: Performed By: #### L AB15 ####Insurance Billing Specialist: VELMA VALADEZ ([phone])[facility] ([facility])[address] [place] [address] Sodium [Moles/Vol] 136 mmol/L Normal 135-145 [facility] Comment on above: Performed By: #### L AB15 ####Insurance Billing Specialist: VELMA VALADEZ ([phone])[facility])[address] [place] [address] Urea nitrogen [Mass/Vol] 16 mg/dL Normal 7-17 [facility] Comment on above: Performed By: #### L AB15 ####Insurance Billing Specialist: VELMA VALADEZ ([phone])[facility] ([facility])[address] [place] [address] Basic metabolic 1998 panelon 04-09-2024 Anion gap [Moles/Vol] 5 mmol/L 3 - 13 mmol/L [facility] [place] Calcium [Mass/Vol] 8.9 mg/dL 8.4 - 10. 4 mg/dL [facility] [place] Chloride [Moles/Vol] 116 mmol/L High 98 - 10 7 mmol/L [facility] [place] CO2 [Moles/Vol] 16 mmol/L Low 22 - 30 mmol/L [facility] [place] Creatinine [Mass/Vol] 0.93 mg/dL 0.52 - 1.04 mg/dL [facility] [place] GFR/1.73 sq M.predicted (S/P/Bld) [Vol rate/Area] 60.7 mL/min - PINF [facility] [place] Comment on above: Calculation based on the Chronic Kidney Disease Epidemiology Collaboration (CKD-EPI) equation refit without adjustment for race Glucose [Mass/Vol] 119 mg/dL High 70 - 100 mg/dL [facility] [place] Interpretation and review of laboratory results Abnormal [facility] [place] Potassium [Moles/Vol] 4.4 mmol/L 3.5 - 5.1 mmol/L [facility] [place] Sodium [Moles/Vol] 136 mmol/L 135 - 145 mmol/L [facility] [place] Urea nitrogen [Mass/Vol] 16 mg/dL 7 - 17 mg/dL [facility] CARECOORDon 04-09-2024 CARECOORD Normal [facility] [place] [facility] CBC W Auto Differential pane l (Bld)on 04-09-2024 Basophils (Bld) [#/Vol] 0.0 10*3/uL 0.0 - 0.2 10*3/uL [facility] [place] Basophils/100 WBC (Bld) 0.6 % 0.0 - 2.0 % [facility] [place] Eosinophils (Bld) [#/Vol] 0.1 10*3/uL 0.0 - 0.5 10*3/uL [facility] [place] Eosinophils/100 WBC (Bld) 0.9 % 0.0 - 6.0 % [facility] [place] Erythrocyte distribution width (RBC) [Ratio] 14.8 % 11.5 - 15.0 % [facility] [place] Hematocrit (Bld) [Volume fraction] 28.2 % Low 35.0 - 47.0 % [facility] [place] Hemoglobin (Bld) [Mass/Vol] 9.0 g/dL Low 11.7 - 16.0 g/dL [facility] [place] Immature granulocytes (Bld) [#/Vol] 0.0 10*3/uL NINF - 0.1 10*3/uL [facility] Immature granulocytes/100 WBC (Bld) 0.4 % 0.0 - 2.0 % [facility] [place] Interpretation and review of laboratory results Abnormal [facility] [place] Lymphocytes (Bld) [#/Vol] 2.2 10*3/uL 1.0 - 4.3 10*3/uL [facility] [place] Lymphocytes/100 WBC (Bld) 31.2 % 15.0 - 45.0 % [facility] [place] MCH (RBC) [Entitic mass] 29.8 pg 26.0 - 34.0 pg [facility] [place] MCHC (RBC) [Mass/Vol] 31.9 % 30.5 - 36.0 % [facility] [place] MCV (RBC) [Entitic vol] 93.4 fL 77.0 - 99.0 fL [facility] [place] Monocytes (Bld) [#/Vol] 0.7 10*3/uL 0.0 - 0.9 10*3/uL [facility] [place] Monocytes/100 WBC (Bld) 10.7 % 5.0 - 13.0 % [facility] [place] Neutrophils (Bld) [#/Vol] 3.9 10*3/uL 1.8 - 7.5 10*3/uL [facility] [place] Neutrophils/100 WBC (Bld) 56.2 % 38.0 - 82.0 % [facility] [place] Nucleated RBC/100 WBC (Bld) [Ratio] 0.0 % [facility] [place] Platelet mean volume (Bld) [Entitic vol] 10.2 fL 9.0 - 12.7 fL [facility] [place] Platelets (Bld) [#/Vol] 235 10*3/uL 140 - 440 10*3/uL [facility] [place] RBC (Bld) [#/Vol] 3.02 10*6/uL Low 3.80 - 5.2 0 10*6/uL [facility] [place] WBC (Bld) [#/Vol] 6.9 10*3/uL 3.6 - 10.7 10*3/uL [facility] CBC WITH AUTO DIFFERENTIALon 04-09-2024 Basophils (Bld) [#/Vol] 0.0 10*3/uL Normal 0.0-0.2 [facility] Comment on above: Performed By: #### L [id number] ####Insurance Billing Specialist: VELMA VALADEZ ([phone])[facility] ([facility])[address] [place] [address] Basophils/100 WBC (Bld) 0.6 % Normal 0.0-2.0 [facility] Comment on above: Performed By: #### L [id number] ####Insurance Billing Specialist: VELMA VALADEZ ([phone])[facility])[address] [place] [address] Eosinophils (Bld) [#/Vol] 0.1 10*3/uL Normal 0.0-0.5 [facility] Comment on above: Performed By: #### L [id number] ####Insurance Billing Specialist: VELMA VALADEZ ([phone])[facility])[address] [place] [address] Eosinophils/100 WBC (Bld) 0.9 % Normal 0.0-6.0 [facility] Comment on above: Performed By: #### L [id number] ####Insurance Billing Specialist: VELMA VALADEZ ([phone])[facility])[address] [place] [address] Erythrocyte distribution width (RBC) [Ratio] 14.8 % Normal 11.5-15.0 [facility] Comment on above: Performed By: #### L [id number] ####Insurance Billing Specialist: VELMA VALADEZ ([phone])[facility])[address] [place] [address] Hematocrit (Bld) [Volume fraction] 28.2 % Low 35.0-47.0 [facility] Comment on above: Performed By: #### L [id number] ####Insurance Billing Specialist: VELMA VALADEZ ([phone])[facility])[address] [place] [address] Hemoglobin (Bld) [Mass/Vol] 9.0 g/dL Low 11.7-16.0 [facility] Comment on above: Performed By: #### L [id number] ####Insurance Billing Specialist: VELMA VALADEZ ([phone])[facility])[address] [place] [address] IMMATURE GRANS % 0.4 % Normal 0.0-2.0 [facility] Comment on above: Performed By: #### L [id number] ####Insurance Billing Specialist: VELMA VALADEZ ([phone])[facility])[address] [place] [address] IMMATURE GRANS ABSOLUTE 0.0 10*3/uL Normal <0.1 [facility] Comment on above: Performed By: #### L [id number] ####Insurance Billing Specialist: VELMA VALADEZ ([phone])[facility])[address] [place] [address] Lymphocytes (Bld) [#/Vol] 2.2 10*3/uL Normal 1.0-4.3 [facility] Comment on above: Performed By: #### L [id number] ####Insurance Billing Specialist: VELMA VALADEZ ([phone])[facility])[address] [place] [address] Lymphocytes/100 WBC (Bld) 31.2 % Normal 15.0-45.0 [facility] Comment on above: Performed By: #### L [id number] ####Insurance Billing Specialist: VELMA VALADEZ ([phone])[facility])[address] [place] [address] MCH (RBC) [Entitic mass] 29.8 pg Normal 26.0-34.0 [facility] Comment on above: Performed By: #### L [id number] ####Insurance Billing Specialist: VELMA VALADEZ ([phone])[facility])[address] [place] [address] MCHC 31.9 % Normal 30.5-36.0 [facility] Comment on above: Performed By: #### L [id number] ####Insurance Billing Specialist: VELMA VALADEZ ([phone])[facility])[address] [place] [address] MCV (RBC) [Entitic vol] 93.4 fL Normal 77.0-99.0 [facility] Comment on above: Performed By: #### L [id number] ####Insurance Billing Specialist: VELMA VALADEZ ([phone])[facility])[address] [place] [address] Monocytes (Bld) [#/Vol] 0.7 10*3/uL Normal 0.0-0.9 [facility] Comment on above: Performed By: #### L [id number] ####Insurance Billing Specialist: VELMA VALADEZ ([phone])[facility] ([facility])[address] [place] [address] Monocytes/100 WBC (Bld) 10.7 % Normal 5.0-13.0 S [facility] Comment on above: Performed By: #### L [id number] ####Insurance Billing Specialist: VELMA VALADEZ ([phone])[facility])[address] [place] [address] NEUTROPHILS ABSOLUTE 3.9 10*3/uL Normal 1.8-7.5 [facility] Comment on above: Performed By: #### L [id number] ####Insurance Billing Specialist: VELMA VALADEZ ([phone])[facility] ([facility])[address] [place] [address] Neutrophils/100 WBC (Bld) 56.2 % Normal 38.0-82.0 [facility] Comment on above: Performed By: #### L [id number] ####Insurance Billing Specialist: VELMA VALADEZ ([phone])[facility])[address] [place] [address] NRBC 0.0 /100 WBCs Normal 0.0-2.0 [facility] Comment on above: Performed By: #### L [id number] ####Insurance Billing Specialist: VELMA VALADEZ ([phone])[facility])[address] [place] [address] Platelet mean volume (Bld) [Entitic vol] 10.2 fL Normal 9.0-12.7 [facility] Comment on above: Performed By: #### L [id number] ####Insurance Billing Specialist: VELMA VALADEZ ([phone])[facility] ([facility])[address] [place] [address] Platelets (Bld) [#/Vol] 235 10*3/uL Normal 140-440 [facility] Comment on above: Performed By: #### L [id number] ####Insurance Billing Specialist: VELMA VALADEZ ([phone])[facility] ([facility])[address] [place] [address] RBC (Bld) [#/Vol] 3.02 10*6/uL Low 3.80-5.20 [facility] Comment on above: Performed By: #### L [id number] ####Insurance Billing Specialist: VELMA VALADEZ ([phone])[facility] ([facility])[address] [place] [address] WBC (Bld) [#/Vol] 6.9 10*3/uL Normal 3.6-10.7 [facility] Comment on above: Performed By: #### L [id number] ####Insurance Billing Specialist: VELMA VALADEZ ([phone])[facility] ([facility])[address] [place] [address] Laboratory - Coagulationon 0 04-09-2024 PT Coag (Bld) [Time] 13.8 s High 9.0 - 1 2.0 s [facility] No Panel Informationon 04-09 Interpretation and review of laboratory results Abnormal [facility] PROTHROMBIN TIMEon INR Coag (PPP) [Relative time] 1.2 {INR} High 0.9-1.1 [facility] Comment on above: Result Comment: Timothy mmended [...] Myocardial Infarction Performed By: #### L [id number], [id number] ####Insurance Billing Specialist: VELMA VALADEZ ([phone])[facility] ([facility])[address] [place] [address] PT Coag (PPP) [Time] 13.8 s High 9.0-12.0 [facility] Comment on above: Performed By: #### L [id number], [id number] ####Insurance Billing Specialist: VELMA VALADEZ ([phone])[facility] ([facility])[address] [place] [address] PT Coag (Bld) [Time]on 04-09 INR Coag (PPP) [Relative time] 1.2 {INR} High 0.9 - 1.1 [facility] Comment on above: Recommended Anticoag ulant Therapy: [...] Progress Noteon 04-09-2024 Progress Note Normal [facility] Progress Note Normal [facility] XR CHEST 1 VIEWon 04-09-2024 XR CHEST 1 VIEW Normal [facility] XR Chest Single viewon 04-09 Mild cardiomegaly and pulmonary venous congestion with small pleural effusions. Report Dictated on Electronically Signed By: Di Leggett MD Electronically Signed Date/Time: 04/09/2024 1:42 PM T [facility] Name: [facility] CARVER RD [facility] 1940 [id number] Exam Date/Time: 04/09/2024 14:11 Procedure: XR CHEST [...] the left shoulder. No acute osseous findings. [facility] Di Leggett M D - 04/09/2024 [facility] Name[facility] POP [facility] 1940 [id number] Exam Date/Time: 04/09/2024 14:11 Procedure: XR CHEST [...] Electronically Signed Date/Time: 04/09/2024 1:42 PM EDT [facility] Radiology Study observation (narrative) [facility] XR Chest Single viewOrdered By: Di Leggett on 04-09-2024 [facility] [employer] Work Phone: aPTT Coag (Bld) [Time]on aPTT Coag (PPP) [Time] 58.9 s High 20.0 - 30.5 s [facility] Interpretation and review of laboratory results Abnormal [facility] NOTE: The therapeuti c time for Heparin anticoagulation, based on Xa activity inhibition, is an APTT of 46-80 seconds. [facility] [employer] aPTT Coag (PPP) [Time] 64.6 s High 20.0 - 30.5 s [facility] Interpretation and review of laboratory results Abnormal [facility] NOTE: The therapeuti c time for Heparin anticoagulation, based on Xa activity inhibition, is an APTT of 46-80 seconds. [facility] aPTT Coag (PPP) [Time] 82.3 s High 20.0 - 30.5 s [facility] NOTE: The therapeuti c time for Heparin anticoagulation, based on Xa activity inhibition, is an APTT of 46-80 seconds. [facility] APTTon 04-08-2024 aPTT Coag (Bld) [Time] 51.5 s High 20.0-30.5 [facility] Comment on above: Result Comment: ORDE R COMMENTS:NOTE: The therapeutic time for Heparin anticoagulation, based on Xa activity inhibition, is an APTT of 46-80 seconds. Performed By: #### L [id number] ####Insurance Billing Specialist: VELMA VALADEZ ([phone])[address] aPTT Coag (Bld) [Time] 59.8 s High 20.0-30.5 [facility] Comment on above: Result Comment: BUBBA Garcia COMMENTS:NOTE: The therapeutic time for Heparin anticoagulation, based on Xa activity inhibition, is an APTT of 46-80 seconds. Performed By: #### L [id number] ####Insurance Billing Specialist: VELMA VALADEZ ([phone])[address] aPTT Coag (Bld) [Time] 41.4 s High 20.0-30.5 [facility] Comment on above: Result Comment: BUBBA Garcia COMMENTS:NOTE: The therapeutic time for Heparin anticoagulation, based on Xa activity inhibition, is an APTT of 46-80 seconds. Performed By: #### L [id number], [id number] ####Insurance Billing Specialist: VELMA VALADEZ ([phone])[address] BASIC METABOLIC PANELon 03-19 Anion gap [Moles/Vol] 5 mmol/L Normal 3-13 [facility] Comment on above: Performed By: #### L AB15 ####Insurance Billing Specialist: VELMA [phone])[facility] [place] [address] Calcium [Mass/Vol] 8.9 mg/dL Normal 8.4-10.4 [facility] Comment on above: Performed By: #### L AB15 ####Insurance Billing Specialist: VELMA VALADEZ ([phone])[facility] [place] [address] [place] Chloride [Moles/Vol] 113 mmol/L High 98-107 [facility] Comment on above: Performed By: #### L AB15 ####Insurance Billing Specialist: VELMA VALADEZ ([phone])[facility] ([facility])[address] [place] [address] CO2 [Moles/Vol] 17 mmol/L Low 22-30 [facility] Comment on above: Performed By: #### L AB15 ####Insurance Billing Specialist: VELMA VALADEZ ([phone])[facility] ([facility])[address] [place] [address] Creatinine [Mass/Vol] 0.98 mg/dL Normal 0.52-1.04 [facility] Comment on above: Performed By: #### L AB15 ####Insurance Billing Specialist: VELMA VALADEZ ([phone])[facility] ([facility])[address] [place] [address] [place] GLOMERULAR FILTRATION RATE ML/MIN/1.73 SQ M.PREDICTED 57.0 mL/min/1.73m*2 Low >60.0 [facility] Comment on above: Result Comment: Calc ulation based on the Chronic Kidney Disease Epidemiology Collaboration (CKD-EPI) equation refit without adjustment for race Performed By: #### L AB15 ####Insurance Billing Specialist: VELMA VALADEZ ([phone])[facility] ([facility])[address] [place] [address] [place] Glucose [Mass/Vol] 116 mg/dL High 70-100 [facility] Comment on above: Performed By: #### L AB15 ####Insurance Billing Specialist: VELMA VALADEZ ([phone])[facility] [place] [address] Potassium [Moles/Vol] 4.5 mmol/L Normal 3.5-5.1 [facility] Comment on above: Performed By: #### L AB15 ####Insurance Billing Specialist: VELMA VALADEZ ([phone])[facility] ([facility])[address] [place] [address] Sodium [Moles/Vol] 135 mmol/L Normal 135-145 [facility] Comment on above: Performed By: #### L AB15 ####Insurance Billing Specialist: VELMA VALADEZ ([phone])[facility] ([facility])[address] [place] [address] Urea nitrogen [Mass/Vol] 18 mg/dL High 7-17 [facility] Comment on above: Performed By: #### L [id number] ####Insurance Billing Specialist: VELMA VALADEZ ([phone])[facility] [place] [address] Basic metabolic 1998 panelon 04-08-2024 Anion gap [Moles/Vol] 5 mmol/L 3 - 13 mmol/L [facility] Calcium [Mass/Vol] 8.9 mg/dL 8.4 - 10. 4 mg/dL [facility] Chloride [Moles/Vol] 113 mmol/L High 98 - 10 7 mmol/L [facility] CO2 [Moles/Vol] 17 mmol/L Low 22 - 30 mmol/L [facility] Creatinine [Mass/Vol] 0.98 mg/dL 0.52 - 1.04 mg/dL [facility] GFR/1.73 sq M.predicted (S/P/Bld) [Vol rate/Area] 57.0 mL/min Low - PINF [facility] Comment on above: Calculation based on the Chronic Kidney Disease Epidemiology Collaboration (CKD-EPI) equation refit without adjustment for race Glucose [Mass/Vol] 116 mg/dL High 70 - 100 mg/dL [facility] Interpretation and review of laboratory results Abnormal [facility] Potassium [Moles/Vol] 4.5 mmol/L 3.5 - 5.1 mmol/L [facility] Sodium [Moles/Vol] 135 mmol/L 135 - 145 mmol/L [facility] Urea nitrogen [Mass/Vol] 18 mg/dL High 7 - 17 mg/dL [facility] CBC W Auto Differential pane l (Bld)on 04-08-2024 Basophils (Bld) [#/Vol] 0.0 10*3/uL 0.0 - 0.2 10*3/uL [facility] Basophils/100 WBC (Bld) 0.5 % 0.0 - 2.0 % [facility] Eosinophils (Bld) [#/Vol] 0.1 10*3/uL 0.0 - 0.5 10*3/uL [facility] Eosinophils/100 WBC (Bld) 0.9 % 0.0 - 6.0 % [facility] Erythrocyte distribution width (RBC) [Ratio] 14.8 % 11.5 - 15.0 % [facility] Hematocrit (Bld) [Volume fraction] 27.0 % Low 35.0 - 47.0 % [facility] Hemoglobin (Bld) [Mass/Vol] 8.6 g/dL Low 11.7 - 16.0 g/dL [facility] Immature granulocytes (Bld) [#/Vol] 0.0 10*3/uL NINF - 0.1 10*3/uL [facility] Immature granulocytes/100 WBC (Bld) 0.4 % 0.0 - 2.0 % [facility] Interpretation and review of laboratory results Abnormal [facility] Lymphocytes (Bld) [#/Vol] 1.7 10*3/uL 1.0 - 4.3 10*3/uL [facility] Lymphocytes/100 WBC (Bld) 23.3 % 15.0 - 45.0 % [facility] MCH (RBC) [Entitic mass] 30.2 pg 26.0 - 34.0 pg [facility] MCHC (RBC) [Mass/Vol] 31.9 % 30.5 - 36.0 % [facility] MCV (RBC) [Entitic vol] 94.7 fL 77.0 - 99.0 fL [facility] Monocytes (Bld) [#/Vol] 0.8 10*3/uL 0.0 - 0.9 10*3/uL [facility] Monocytes/100 WBC (Bld) 10.2 % 5.0 - 13.0 % [facility] Neutrophils (Bld) [#/Vol] 4.8 10*3/uL 1.8 - 7.5 10*3/uL [facility] Neutrophils/100 WBC (Bld) 64.7 % 38.0 - 82.0 % [facility] Nucleated RBC/100 WBC (Bld) [Ratio] 0.0 % [facility] Platelet mean volume (Bld) [Entitic vol] 10.1 fL 9.0 - 12.7 fL [facility] Platelets (Bld) [#/Vol] 223 10*3/uL 140 - 440 10*3/uL [facility] RBC (Bld) [#/Vol] 2.85 10*6/uL Low 3.80 - 5.2 0 10*6/uL [facility] WBC (Bld) [#/Vol] 7.5 10*3/uL 3.6 - 10.7 10*3/uL [facility] CBC WITH AUTO DIFFERENTIALon 04-08-2024 Basophils (Bld) [#/Vol] 0.0 10*3/uL Normal 0.0-0.2 [facility] Comment on above: Performed By: #### L [id number] ####Insurance Billing Specialist: VELMA VALADEZ ([phone])[facility])[address] [place] [address] Basophils/100 WBC (Bld) 0.5 % Normal 0.0-2.0 [facility] Comment on above: Performed By: #### L [id number] ####Insurance Billing Specialist: VELMA VALADEZ ([phone])[facility])[address] [place] [address] [place] Eosinophils (Bld) [#/Vol] 0.1 10*3/uL Normal 0.0-0.5 [facility] Comment on above: Performed By: #### L [id number] ####Insurance Billing Specialist: VELMA [phone])[facility])[address] [place] [address] [place] Eosinophils/100 WBC (Bld) 0.9 % Normal 0.0-6.0 [facility] Comment on above: Performed By: #### L [id number] ####Insurance Billing Specialist: VELMA [phone])[facility])[address] [place] [address] Erythrocyte distribution width (RBC) [Ratio] 14.8 % Normal 11.5-15.0 [facility] Comment on above: Performed By: #### L [id number] ####Insurance Billing Specialist: VELMA VALADEZ ([phone])[facility])[address] [place] [address] Hematocrit (Bld) [Volume fraction] 27.0 % Low 35.0-47.0 [facility] Comment on above: Performed By: #### L [id number] ####Insurance Billing Specialist: VELMA VALADEZ ([phone])[facility])[address] [place] [address] Hemoglobin (Bld) [Mass/Vol] 8.6 g/dL Low 11.7-16.0 [facility] Comment on above: Performed By: #### L [id number] ####Insurance Billing Specialist: VELMA VALADEZ ([phone])[facility])[address] [place] [address] IMMATURE GRANS % 0.4 % Normal 0.0-2.0 [facility] Comment on above: Performed By: #### L [id number] ####Insurance Billing Specialist: VELMA VALADEZ ([phone])[facility])[address] [place] [address] IMMATURE GRANS ABSOLUTE 0.0 10*3/uL Normal <0.1 [facility] Comment on above: Performed By: #### L [id number] ####Insurance Billing Specialist: VELMA VALADEZ ([phone])[facility])[address] [place] [address] [place] Lymphocytes (Bld) [#/Vol] 1.7 10*3/uL Normal 1.0-4.3 [facility] Comment on above: Performed By: #### L [id number] ####Insurance Billing Specialist: VELMA VALADEZ ([phone])[facility])[address] [place] [address] [place] Lymphocytes/100 WBC (Bld) 23.3 % Normal 15.0-45.0 [facility] Comment on above: Performed By: #### L [id number] ####Insurance Billing Specialist: VELMA VALADEZ ([phone])[facility])[address] [place] [address] MCH (RBC) [Entitic mass] 30.2 pg Normal 26.0-34.0 [facility] Comment on above: Performed By: #### L [id number] ####Insurance Billing Specialist: VELMA VALADEZ ([phone])[facility])[address] [place] [address] MCHC 31.9 % Normal 30.5-36.0 [facility] Comment on above: Performed By: #### L [id number] ####Insurance Billing Specialist: VELMA VALADEZ ([phone])[facility])[address] [place] [address] MCV (RBC) [Entitic vol] 94.7 fL Normal 77.0-99.0 [facility] Comment on above: Performed By: #### L [id number] ####Insurance Billing Specialist: VELMA VALADEZ ([phone])[facility])[address] [place] [address] Monocytes (Bld) [#/Vol] 0.8 10*3/uL Normal 0.0-0.9 [facility] Comment on above: Performed By: #### L [id number] ####Insurance Billing Specialist: VELMA VALADEZ ([phone])[facility])[address] [place] [address] Monocytes/100 WBC (Bld) 10.2 % Normal 5.0-13.0 [facility] Comment on above: Performed By: #### L [id number] ####Insurance Billing Specialist: VELMA VALADEZ ([phone])[facility])[address] [place] [address] NEUTROPHILS ABSOLUTE 4.8 10*3/uL Normal 1.8-7.5 [facility] Comment on above: Performed By: #### L [id number] ####Insurance Billing Specialist: VELMA VALADEZ ([phone])[facility] ([facility])[address] [place] [address] Neutrophils/100 WBC (Bld) 64.7 % Normal 38.0-82.0 [facility] Comment on above: Performed By: #### L [id number] ####Insurance Billing Specialist: VELMA VALADZE ([phone])[facility] ([facility])[address] [place] [address] NRBC 0.0 /100 WBCs Normal 0.0-2.0 [facility] Comment on above: Performed By: #### L [id number] ####Insurance Billing Specialist: VELMA VALADEZ ([phone])[facility])[address] [place] [address] Platelet mean volume (Bld) [Entitic vol] 10.1 fL Normal 9.0-12.7 [facility] Comment on above: Performed By: #### L [id number] ####Insurance Billing Specialist: VELMA VALADEZ ([phone])[facility] ([facility])[address] [place] [address] Platelets (Bld) [#/Vol] 223 10*3/uL Normal 140-440 [facility] Comment on above: Performed By: #### L [id number] ####Insurance Billing Specialist: VELAM VALADEZ ([phone])[facility] ([facility])[address] [place] [address] RBC (Bld) [#/Vol] 2.85 10*6/uL Low 3.80-5.20 [facility] Comment on above: Performed By: #### L [id number] ####Insurance Billing Specialist: VELMA VALADEZ ([phone])[facility])[address] [place] [address] WBC (Bld) [#/Vol] 7.5 10*3/uL Normal 3.6-10.7 [facility] Comment on above: Performed By: #### L [id number] ####Insurance Billing Specialist: VELMA VALADEZ ([phone])[facility])[address] [place] [address] [place] IDNon 04-08-2024 IDN Progressing Normal [facility] Laboratory - Coagulationon 0 04-08-2024 PT Coag (Bld) [Time] 11.2 s 9.0 - 1 2.0 s [facility] No Panel Informationon 04-08 [facility] PROTHROMBIN TIMEon INR Coag (PPP) [Relative time] 1.0 {INR} Normal 0.9-1.1 [facility] Comment on above: Result Comment: Timothy mmended [...] Myocardial Infarction Performed By: #### L [id number], [id number] ####Insurance Billing Specialist: VELMA VALADEZ ([phone])[facility])[address] [place] [address] PT Coag (PPP) [Time] 11.2 s Normal 9.0-12.0 [facility] Comment on above: Performed By: #### L [id number], [id number] ####Insurance Billing Specialist: VELMA VALADEZ ([phone])[facility])[address] [place] [address] PT Coag (Bld) [Time]on 04-08 INR Coag (PPP) [Relative time] 1.0 {INR} 0.9 - 1.1 [facility] Comment on above: Recommended Anticoag ulant Therapy: [...] Interpretation and review of laboratory results Normal [facility] Progress Noteon 04-08-2024 Progress Note Normal [facility] Progress Note Normal [facility] aPTT Coag (Bld) [Time]on aPTT Coag (PPP) [Time] 51.5 s High 20.0 - 30.5 s [facility] Interpretation and review of laboratory results Abnormal [facility] NOTE: The therapeuti c time for Heparin anticoagulation, based on Xa activity inhibition, is an APTT of 46-80 seconds. [facility] aPTT Coag (PPP) [Time] 59.8 s High 20.0 - 30.5 s [facility] Interpretation and review of laboratory results Abnormal [facility] NOTE: The therapeuti c time for Heparin anticoagulation, based on Xa activity inhibition, is an APTT of 46-80 seconds. [facility] aPTT Coag (PPP) [Time] 41.4 s High 20.0 - 30.5 s [facility] Interpretation and review of laboratory results Abnormal [facility] NOTE: The therapeuti c time for Heparin anticoagulation, based on Xa activity inhibition, is an APTT of 46-80 seconds. [facility] APTTon 04-07-2024 aPTT Coag (Bld) [Time] 54.7 s High 20.0-30.5 [facility] Comment on above: Result Comment: BUBBA Garcia COMMENTS:NOTE: The therapeutic time for Heparin anticoagulation, based on Xa activity inhibition, is an APTT of 46-80 seconds. Performed By: #### L [id number] ####Insurance Billing Specialist: VELMA VALADEZ ([phone])[facility] ([facility] aPTT Coag (Bld) [Time] 77.7 s High 20.0-30.5 [facility] Comment on above: Result Comment: BUBBA Garcia COMMENTS:NOTE: The therapeutic time for Heparin anticoagulation, based on Xa activity inhibition, is an APTT of 46-80 seconds. Performed By: #### L [id number], [id number] ####Insurance Billing Specialist: VELMA VALADEZ ([phone])[facility] ([facility])[address] [place] [address] BASIC METABOLIC PANELon 09-2 Anion gap [Moles/Vol] 4 mmol/L Normal 3-13 [facility] Comment on above: Performed By: #### L [id number] ####Insurance Billing Specialist: VELMA VALADEZ ([phone])[facility] ([facility])[address] [place] [address] Calcium [Mass/Vol] 8.8 mg/dL Normal 8.4-10.4 [facility] Comment on above: Performed By: #### L AB15 ####Insurance Billing Specialist: VELMA VALADEZ ([phone])[facility] ([facility])[address] [place] [address] Chloride [Moles/Vol] 115 mmol/L High 98-107 [facility] Comment on above: Performed By: #### L AB15 ####Insurance Billing Specialist: VELMA VALADEZ ([phone])[facility] [place] [address] CO2 [Moles/Vol] 17 mmol/L Low 22-30 [facility] Comment on above: Performed By: #### L AB15 ####Insurance Billing Specialist: VELMA VALADEZ ([phone])[facility] ([facility])[address] [place] [address] Creatinine [Mass/Vol] 0.90 mg/dL Normal 0.52-1.04 [facility] Comment on above: Performed By: #### L AB15 ####Insurance Billing Specialist: VELMA VALADEZ ([phone])[facility] ([facility])[address] [place] [address] [place] GLOMERULAR FILTRATION RATE ML/MIN/1.73 SQ M.PREDICTED 63.2 mL/min/1.73m*2 Normal >60.0 [facility] Comment on above: Result Comment: Calc ulation based on the Chronic Kidney Disease Epidemiology Collaboration (CKD-EPI) equation refit without adjustment for race Performed By: #### L [id number] ####Insurance Billing Specialist: VELMA [phone])[facility] [place] [address] Glucose [Mass/Vol] 139 mg/dL High 70-100 [facility] Comment on above: Performed By: #### L AB15 ####Insurance Billing Specialist: VELMA VALADEZ ([phone])[facility] ([facility])[address] [place] [address] Potassium [Moles/Vol] 4.7 mmol/L Normal 3.5-5.1 [facility] Comment on above: Performed By: #### L AB15 ####Insurance Billing Specialist: VELMA VALADEZ ([phone])[facility] ([facility])[address] [place] [address] Sodium [Moles/Vol] 136 mmol/L Normal 135-145 [facility] Comment on above: Performed By: #### L AB15 ####Insurance Billing Specialist: VELMA VALADEZ ([phone])[facility] ([facility])[address] [place] [address] Urea nitrogen [Mass/Vol] 16 mg/dL Normal 7-17 [facility] Comment on above: Performed By: #### L [id number] ####Insurance Billing Specialist: VELMA VALADEZ ([phone])[facility] ([facility])[address] [place] [address] Basic metabolic 1998 panelon 04-07-2024 Anion gap [Moles/Vol] 4 mmol/L 3 - 13 mmol/L [facility] Calcium [Mass/Vol] 8.8 mg/dL 8.4 - 10. 4 mg/dL [facility] Chloride [Moles/Vol] 115 mmol/L High 98 - 10 7 mmol/L [facility] CO2 [Moles/Vol] 17 mmol/L Low 22 - 30 mmol/L [facility] Creatinine [Mass/Vol] 0.90 mg/dL 0.52 - 1.04 mg/dL [facility] GFR/1.73 sq M.predicted (S/P/Bld) [Vol rate/Area] 63.2 mL/min - PINF [facility] Comment on above: Calculation based on the Chronic Kidney Disease Epidemiology Collaboration (CKD-EPI) equation refit without adjustment for race Glucose [Mass/Vol] 139 mg/dL High 70 - 100 mg/dL [facility] Interpretation and review of laboratory results Abnormal [facility] Potassium [Moles/Vol] 4.7 mmol/L 3.5 - 5.1 mmol/L [facility] Sodium [Moles/Vol] 136 mmol/L 135 - 145 mmol/L [facility] Urea nitrogen [Mass/Vol] 16 mg/dL 7 - 17 mg/dL [facility] CBC W Auto Differential pane l (Bld)on 04-07-2024 Basophils (Bld) [#/Vol] 0.0 10*3/uL 0.0 - 0.2 10*3/uL [facility] Basophils/100 WBC (Bld) 0.2 % 0.0 - 2.0 % [facility] Eosinophils (Bld) [#/Vol] 0.0 10*3/uL 0.0 - 0.5 10*3/uL [facility] Eosinophils/100 WBC (Bld) 0.0 % 0.0 - 6.0 % [facility] Erythrocyte distribution width (RBC) [Ratio] 14.3 % 11.5 - 15.0 % [facility] Hematocrit (Bld) [Volume fraction] 27.0 % Low 35.0 - 47.0 % [facility] Hemoglobin (Bld) [Mass/Vol] 8.6 g/dL Low 11.7 - 16.0 g/dL [facility] Immature granulocytes (Bld) [#/Vol] 0.0 10*3/uL NINF - 0.1 10*3/uL [facility] Immature granulocytes/100 WBC (Bld) 0.5 % 0.0 - 2.0 % [facility] Interpretation and review of laboratory results Abnormal [facility] Lymphocytes (Bld) [#/Vol] 0.8 10*3/uL Low 1.0 - 4.3 10*3/uL [facility] Lymphocytes/100 WBC (Bld) 19.2 % 15.0 - 45.0 % [facility] MCH (RBC) [Entitic mass] 30.1 pg 26.0 - 34.0 pg [facility] MCHC (RBC) [Mass/Vol] 31.9 % 30.5 - 36.0 % [facility] MCV (RBC) [Entitic vol] 94.4 fL 77.0 - 99.0 fL [facility] Monocytes (Bld) [#/Vol] 0.3 10*3/uL 0.0 - 0.9 10*3/uL [facility] Monocytes/100 WBC (Bld) 7.5 % 5.0 - 13.0 % [facility] Neutrophils (Bld) [#/Vol] 2.9 10*3/uL 1.8 - 7.5 10*3/uL [facility] Neutrophils/100 WBC (Bld) 72.6 % 38.0 - 82.0 % [facility] Nucleated RBC/100 WBC (Bld) [Ratio] 0.0 % [facility] Platelet mean volume (Bld) [Entitic vol] 10.5 fL 9.0 - 12.7 fL [facility] Platelets (Bld) [#/Vol] 202 10*3/uL 140 - 440 10*3/uL [facility] RBC (Bld) [#/Vol] 2.86 10*6/uL Low 3.80 - 5.2 0 10*6/uL [facility] WBC (Bld) [#/Vol] 4.0 10*3/uL 3.6 - 10.7 10*3/uL [facility] CBC WITH AUTO DIFFERENTIALon 04-07-2024 Basophils (Bld) [#/Vol] 0.0 10*3/uL Normal 0.0-0.2 [facility] Comment on above: Performed By: #### L [id number] ####Insurance Billing Specialist: VELMA [phone])[facility] ([facility])[address] [place] [address] Basophils/100 WBC (Bld) 0.2 % Normal 0.0-2.0 [facility] Comment on above: Performed By: #### L [id number] ####Insurance Billing Specialist: VELMA [phone])[facility] ([facility])[address] [place] [address] Eosinophils (Bld) [#/Vol] 0.0 10*3/uL Normal 0.0-0.5 [facility] Comment on above: Performed By: #### L [id number] ####Insurance Billing Specialist: VELMA [phone])[facility])[address] [place] [address] Eosinophils/100 WBC (Bld) 0.0 % Normal 0.0-6.0 [facility] Comment on above: Performed By: #### L [id number] ####Insurance Billing Specialist: VELMA VALADEZ ([phone])[facility])[address] [place] [address] Erythrocyte distribution width (RBC) [Ratio] 14.3 % Normal 11.5-15.0 [facility] Comment on above: Performed By: #### L [id number] ####Insurance Billing Specialist: VELMA VALADEZ ([phone])[facility])[address] [place] [address] Hematocrit (Bld) [Volume fraction] 27.0 % Low 35.0-47.0 [facility] Comment on above: Performed By: #### L [id number] ####Insurance Billing Specialist: VELMA VALADEZ ([phone])[facility])[address] [place] [address] Hemoglobin (Bld) [Mass/Vol] 8.6 g/dL Low 11.7-16.0 [facility] Comment on above: Performed By: #### L [id number] ####Insurance Billing Specialist: VELMA VALADEZ ([phone])[facility])[address] [place] [address] IMMATURE GRANS % 0.5 % Normal 0.0-2.0 [facility] Comment on above: Performed By: #### L [id number] ####Insurance Billing Specialist: VELMA VALADEZ ([phone])[facility])[address] [place] [address] IMMATURE GRANS ABSOLUTE 0.0 10*3/uL Normal <0.1 [facility] Comment on above: Performed By: #### L [id number] ####Insurance Billing Specialist: VELMA VALADEZ ([phone])[facility])[address] [place] [address] Lymphocytes (Bld) [#/Vol] 0.8 10*3/uL Low 1.0-4.3 [facility] Comment on above: Performed By: #### L [id number] ####Insurance Billing Specialist: VELMA VALADEZ ([phone])[facility])[address] [place] [address] Lymphocytes/100 WBC (Bld) 19.2 % Normal 15.0-45.0 [facility] Comment on above: Performed By: #### L [id number] ####Insurance Billing Specialist: VELMA VALADEZ ([phone])[facility])[address] [place] [address] MCH (RBC) [Entitic mass] 30.1 pg Normal 26.0-34.0 [facility] Comment on above: Performed By: #### L [id number] ####Insurance Billing Specialist: VELMA VALADEZ ([phone])[facility])[address] [place] [address] MCHC 31.9 % Normal 30.5-36.0 [facility] Comment on above: Performed By: #### L [id number] ####Insurance Billing Specialist: VELMA VALADEZ ([phone])[facility])[address] [place] [address] MCV (RBC) [Entitic vol] 94.4 fL Normal 77.0-99.0 [facility] Comment on above: Performed By: #### L [id number] ####Insurance Billing Specialist: VELMA VALADEZ ([phone])[facility])[address] [place] [address] Monocytes (Bld) [#/Vol] 0.3 10*3/uL Normal 0.0-0.9 [facility] Comment on above: Performed By: #### L [id number] ####Insurance Billing Specialist: VELMA VALADEZ ([phone])[facility])[address] [place] [address] Monocytes/100 WBC (Bld) 7.5 % Normal 5.0-13.0 [facility] Comment on above: Performed By: #### L [id number] ####Insurance Billing Specialist: VELMA VALADEZ ([phone])[facility] ([facility])[address] [place] [address] NEUTROPHILS ABSOLUTE 2.9 10*3/uL Normal 1.8-7.5 [facility] Comment on above: Performed By: #### L [id number] ####Insurance Billing Specialist: VELMA VALADEZ ([phone])[facility] ([facility])[address] [place] [address] Neutrophils/100 WBC (Bld) 72.6 % Normal 38.0-82.0 [facility] Comment on above: Performed By: #### L [id number] ####Insurance Billing Specialist: VELMA VALADEZ ([phone])[facility])[address] [place] [address] NRBC 0.0 /100 WBCs Normal 0.0-2.0 [facility] Comment on above: Performed By: #### L [id number] ####Insurance Billing Specialist: VELMA VALADEZ ([phone])[facility] ([facility])[address] [place] [address] Platelet mean volume (Bld) [Entitic vol] 10.5 fL Normal 9.0-12.7 [facility] Comment on above: Performed By: #### L [id number] ####Insurance Billing Specialist: VELMA VALADEZ ([phone])[facility] ([facility])[address] [place] [address] [place] Platelets (Bld) [#/Vol] 202 10*3/uL Normal 140-440 [facility] Comment on above: Performed By: #### L [id number] ####Insurance Billing Specialist: VELMA VALADEZ ([phone])[facility])[address] [place] [address] RBC (Bld) [#/Vol] 2.86 10*6/uL Low 3.80-5.20 [facility] Comment on above: Performed By: #### L [id number] ####Insurance Billing Specialist: VELMA VALADEZ ([phone])[facility])[address] [place] [address] WBC (Bld) [#/Vol] 4.0 10*3/uL Normal 3.6-10.7 [facility] Comment on above: Performed By: #### [place] [id number] ####Insurance Billing Specialist: VELMA VALADEZ ([phone])[facility])[address] [place] [address] [place] IDNon 04-07-2024 IDN Normal [facility] Laboratory - Coagulationon 0 04-07-2024 PT Coag (Bld) [Time] 11.1 s 9.0 - 1 2.0 s [facility] No Panel Informationon 04-07 [facility] Nursing Noteon 04-07-2024 Nursing Note NO changes to hepari n infusion at this time. Normal [facility] PROTHROMBIN TIMEon INR Coag (PPP) [Relative time] 1.0 {INR} Normal 0.9-1.1 [facility] Comment on above: Result Comment: Timothy mmended [...] Myocardial Infarction Performed By: #### [place] [id number], [id number] ####Insurance Billing Specialist: VELMA VALADEZ ([phone])[facility] ([facility])[address] [place] [address] [place] PT Coag (PPP) [Time] 11.1 s Normal 9.0-12.0 [facility] Comment on above: Performed By: #### L [id number], [id number] ####Insurance Billing Specialist: VELMA VALADEZ ([phone])[facility] ([facility])[address] [place] [address] PT Coag (Bld) [Time]on 04-07 INR Coag (PPP) [Relative time] 1.0 {INR} 0.9 - 1.1 [facility] Comment on above: Recommended Anticoag ulant Therapy: [...] Interpretation and review of laboratory results Normal [facility] Progress Noteon 04-07-2024 Progress Note Normal [facility] Progress Note Normal [facility] Progress Note Normal [facility] aPTT Coag (Bld) [Time]on aPTT Coag (PPP) [Time] 54.7 s High 20.0 - 30.5 s [facility] Interpretation and review of laboratory results Abnormal [facility] NOTE: The therapeuti c time for Heparin anticoagulation, based on Xa activity inhibition, is an APTT of 46-80 seconds. [facility] aPTT Coag (PPP) [Time] 77.7 s High 20.0 - 30.5 s [facility] Interpretation and review of laboratory results Abnormal [facility] NOTE: The therapeuti c time for Heparin anticoagulation, based on Xa activity inhibition, is an APTT of 46-80 seconds. [facility] [id number] 04-06-2024 [id number] Normal [facility] APTTon 04-06-2024 aPTT Coag (Bld) [Time] 43.3 s High 20.0-30.5 [facility] Comment on above: Result Comment: BUBBA Garcia COMMENTS:NOTE: The therapeutic time for Heparin anticoagulation, based on Xa activity inhibition, is an APTT of 46-80 seconds. Performed By: #### L [id number] ####Insurance Billing Specialist: VELMA VALADEZ ([phone])[facility] ([address] aPTT Coag (Bld) [Time] 97.6 s High 20.0-30.5 [facility] Comment on above: Result Comment: BUBBA Garcia COMMENTS:NOTE: The therapeutic time for Heparin anticoagulation, based on Xa activity inhibition, is an APTT of 46-80 seconds. Performed By: #### L [id number] ####Insurance Billing Specialist: VELMA VALADEZ ([phone])[facility] ([facility])[address] Anesthesia Noteon 04-06-2024 Anesthesia Note Normal [facility] Anesthesia Note Normal [facility] BASIC METABOLIC PANELon 03-19 Anion gap [Moles/Vol] 4 mmol/L Normal 3-13 [facility] Comment on above: Performed By: #### L [id number] ####Insurance Billing Specialist: VELMA VALADEZ ([phone])[facility] ([facility] [place] [address] Calcium [Mass/Vol] 8.9 mg/dL Normal 8.4-10.4 [facility] Comment on above: Performed By: #### L AB15 ####Insurance Billing Specialist: VEMLA VALADEZ ([phone])[facility])[address] [place] [address] [place] Chloride [Moles/Vol] 114 mmol/L High 98-107 [facility] Comment on above: Performed By: #### L AB15 ####Insurance Billing Specialist: VELMA VALADEZ ([phone])[facility])[address] [place] [address] CO2 [Moles/Vol] 18 mmol/L Low 22-30 [facility] Comment on above: Performed By: #### L AB15 ####Insurance Billing Specialist: VELMA VALADEZ ([phone])[facility] [place] [address] Creatinine [Mass/Vol] 0.96 mg/dL Normal 0.52-1.04 [facility] Comment on above: Performed By: #### L AB15 ####Insurance Billing Specialist: VELMA VALADEZ ([phone])[facility])[address] [place] [address] GLOMERULAR FILTRATION RATE ML/MIN/1.73 SQ M.PREDICTED 58.5 mL/min/1.73m*2 Low >60.0 [facility] Comment on above: Result Comment: Calc ulation based on the Chronic Kidney Disease Epidemiology Collaboration (CKD-EPI) equation refit without adjustment for race Performed By: #### L AB15 ####Insurance Billing Specialist: VELMA VALADEZ ([phone])[facility] ([facility])[address] [place] [address] [place] Glucose [Mass/Vol] 97 mg/dL Normal 70-100 [facility] Comment on above: Performed By: #### L AB15 ####Insurance Billing Specialist: VELMA VALADEZ ([phone])[facility])[address] [place] [address] Potassium [Moles/Vol] 4.6 mmol/L Normal 3.5-5.1 [facility] Comment on above: Performed By: #### L AB15 ####Insurance Billing Specialist: VELMA VALADEZ ([phone])[facility] ([facility])[address] [place] [address] [place] Sodium [Moles/Vol] 135 mmol/L Normal 135-145 [facility] Comment on above: Performed By: #### L AB15 ####Insurance Billing Specialist: VELMA VALADEZ ([phone])[facility] ([facility])[address] [place] [address] [place] Urea nitrogen [Mass/Vol] 17 mg/dL Normal 7-17 [facility] Comment on above: Performed By: #### L AB15 ####Insurance Billing Specialist: VELMA VALADEZ ([phone])[facility] ([facility])[address] [place] [address] [place] BLOOD TYPE AND SCREEN GELon 04-06-2024 ABO GROUPING AB Normal [facility] Comment on above: Performed By: #### L [id number] ####Insurance Billing Specialist: VELMA VALADEZ ([phone])[facility] ([facility])[address] [place] [address] [place] RH TYPE IN BLOOD Positive Normal [facility] Comment on above: Performed By: #### L [id number] ####Insurance Billing Specialist: VELMA VALADEZ ([phone])[facility] ([facility])[address] [place] [address] Basic metabolic 1998 panelon 04-06-2024 Anion gap [Moles/Vol] 4 mmol/L 3 - 13 mmol/L [facility] Calcium [Mass/Vol] 8.9 mg/dL 8.4 - 10. 4 mg/dL [facility] Chloride [Moles/Vol] 114 mmol/L High 98 - 10 7 mmol/L [facility] CO2 [Moles/Vol] 18 mmol/L Low 22 - 30 mmol/L [facility] Creatinine [Mass/Vol] 0.96 mg/dL 0.52 - 1.04 mg/dL [facility] GFR/1.73 sq M.predicted (S/P/Bld) [Vol rate/Area] 58.5 mL/min Low - PINF [facility] Comment on above: Calculation based on the Chronic Kidney Disease Epidemiology Collaboration (CKD-EPI) equation refit without adjustment for race Glucose [Mass/Vol] 97 mg/dL 70 - 100 mg/dL [facility] Interpretation and review of laboratory results Abnormal [facility] Potassium [Moles/Vol] 4.6 mmol/L 3.5 - 5.1 mmol/L [facility] Sodium [Moles/Vol] 135 mmol/L 135 - 145 mmol/L [facility] Urea nitrogen [Mass/Vol] 17 mg/dL 7 - 17 mg/dL [facility] Blood type and Crossmatch pa juan (Bld)on 04-06-2024 ABO group Nom (Bld) AB [facility] Blood group antibody screen GEL Ql Negative [facility] D Ag [facility]l [facility]) [facility] CARECOORDon 04-06-2024 CARECOORD Normal [facility] CARECOORD Normal [facility] CBC W Auto Differential pane l (Bld)on 04-06-2024 Basophils (Bld) [#/Vol] 0.1 10*3/uL 0.0 - 0.2 10*3/uL [facility] Basophils/100 WBC (Bld) 1.1 % 0.0 - 2.0 % [facility] Eosinophils (Bld) [#/Vol] 0.1 10*3/uL 0.0 - 0.5 10*3/uL [facility] Eosinophils/100 WBC (Bld) 2.7 % 0.0 - 6.0 % [facility] Erythrocyte distribution width (RBC) [Ratio] 14.3 % 11.5 - 15.0 % [facility] Hematocrit (Bld) [Volume fraction] 29.8 % Low 35.0 - 47.0 % [facility] Hemoglobin (Bld) [Mass/Vol] 9.7 g/dL Low 11.7 - 16.0 g/dL [facility] Immature granulocytes (Bld) [#/Vol] 0.0 10*3/uL NINF - 0.1 10*3/uL [facility] Immature granulocytes/100 WBC (Bld) 0.2 % 0.0 - 2.0 % [facility] Interpretation and review of laboratory results Abnormal [facility] Lymphocytes (Bld) [#/Vol] 1.5 10*3/uL 1.0 - 4.3 10*3/uL [facility] Lymphocytes/100 WBC (Bld) 33.0 % 15.0 - 45.0 % [facility] MCH (RBC) [Entitic mass] 30.3 pg 26.0 - 34.0 pg [facility] MCHC (RBC) [Mass/Vol] 32.6 % 30.5 - 36.0 % [facility] MCV (RBC) [Entitic vol] 93.1 fL 77.0 - 99.0 fL [facility] Monocytes (Bld) [#/Vol] 0.5 10*3/uL 0.0 - 0.9 10*3/uL [facility] Monocytes/100 WBC (Bld) 10.5 % 5.0 - 13.0 % [facility] Neutrophils (Bld) [#/Vol] 2.4 10*3/uL 1.8 - 7.5 10*3/uL [facility] Neutrophils/100 WBC (Bld) 52.5 % 38.0 - 82.0 % [facility] Nucleated RBC/100 WBC (Bld) [Ratio] 0.0 % [facility] Platelet mean volume (Bld) [Entitic vol] 10.4 fL 9.0 - 12.7 fL [facility] Platelets (Bld) [#/Vol] 207 10*3/uL 140 - 440 10*3/uL [facility] RBC (Bld) [#/Vol] 3.20 10*6/uL Low 3.80 - 5.2 0 10*6/uL [facility] WBC (Bld) [#/Vol] 4.5 10*3/uL 3.6 - 10.7 10*3/uL [facility] CBC WITH AUTO DIFFERENTIALon 04-06-2024 Basophils (Bld) [#/Vol] 0.1 10*3/uL Normal 0.0-0.2 [facility] Comment on above: Performed By: #### L [id number] ####Insurance Billing Specialist: VELMA VALADEZ ([phone])[facility])[address] [place] [address] Basophils/100 WBC (Bld) 1.1 % Normal 0.0-2.0 [facility] Comment on above: Performed By: #### L [id number] ####Insurance Billing Specialist: VELMA VALADEZ ([phone])[facility] ([facility])[address] [place] [address] Eosinophils (Bld) [#/Vol] 0.1 10*3/uL Normal 0.0-0.5 [facility] Comment on above: Performed By: #### L [id number] ####Insurance Billing Specialist: VELMA VALADEZ ([phone])[facility])[address] [place] [address] Eosinophils/100 WBC (Bld) 2.7 % Normal 0.0-6.0 [facility] Comment on above: Performed By: #### L [id number] ####Insurance Billing Specialist: VELMA VALADEZ ([phone])[facility] ([facility])[address] [place] [address] Erythrocyte distribution width (RBC) [Ratio] 14.3 % Normal 11.5-15.0 [facility] Comment on above: Performed By: #### L [id number] ####Insurance Billing Specialist: VELMA VALADEZ ([phone])[facility])[address] [place] [address] Hematocrit (Bld) [Volume fraction] 29.8 % Low 35.0-47.0 [facility] Comment on above: Performed By: #### L [id number] ####Insurance Billing Specialist: VELMA VALADEZ ([phone])[facility])[address] [place] [address] Hemoglobin (Bld) [Mass/Vol] 9.7 g/dL Low 11.7-16.0 [facility] Comment on above: Performed By: #### L [id number] ####Insurance Billing Specialist: VELMA VALADEZ ([phone])[facility])[address] [place] [address] IMMATURE GRANS % 0.2 % Normal 0.0-2.0 [facility] Comment on above: Performed By: #### L [id number] ####Insurance Billing Specialist: VELMA VALADEZ ([phone])[facility])[address] [place] [address] IMMATURE GRANS ABSOLUTE 0.0 10*3/uL Normal <0.1 [facility] Comment on above: Performed By: #### L [id number] ####Insurance Billing Specialist: VELMA VALADEZ ([phone])[facility])[address] [place] [address] Lymphocytes (Bld) [#/Vol] 1.5 10*3/uL Normal 1.0-4.3 [facility] Comment on above: Performed By: #### L [id number] ####Insurance Billing Specialist: VELMA VALADEZ ([phone])[facility])[address] [place] [address] Lymphocytes/100 WBC (Bld) 33.0 % Normal 15.0-45.0 [facility] Comment on above: Performed By: #### L [id number] ####Insurance Billing Specialist: VELMA VALADEZ ([phone])[facility])[address] [place] [address] MCH (RBC) [Entitic mass] 30.3 pg Normal 26.0-34.0 [facility] Comment on above: Performed By: #### L [id number] ####Insurance Billing Specialist: VELMA VALADEZ ([phone])[facility] ([facility])[address] [place] [address] MCHC 32.6 % Normal 30.5-36.0 [facility] Comment on above: Performed By: #### L [id number] ####Insurance Billing Specialist: VELMA VALADEZ ([phone])[facility])[address] [place] [address] MCV (RBC) [Entitic vol] 93.1 fL Normal 77.0-99.0 [facility] Comment on above: Performed By: #### L [id number] ####Insurance Billing Specialist: VELMA VALADEZ ([phone])[facility])[address] [place] [address] Monocytes (Bld) [#/Vol] 0.5 10*3/uL Normal 0.0-0.9 [facility] Comment on above: Performed By: #### L [id number] ####Insurance Billing Specialist: VELMA VALADEZ ([phone])[facility] ([facility])[address] [place] [address] Monocytes/100 WBC (Bld) 10.5 % Normal 5.0-13.0 [facility] Comment on above: Performed By: #### L [id number] ####Insurance Billing Specialist: VELMA VALADEZ ([phone])[facility])[address] [place] [address] NEUTROPHILS ABSOLUTE 2.4 10*3/uL Normal 1.8-7.5 [facility] Comment on above: Performed By: #### L [id number] ####Insurance Billing Specialist: VELMA VALADEZ ([phone])[facility])[address] [place] [address] Neutrophils/100 WBC (Bld) 52.5 % Normal 38.0-82.0 [facility] Comment on above: Performed By: #### L [id number] ####Insurance Billing Specialist: VELMA VALADEZ ([phone])[facility] [address] NRBC 0.0 /100 WBCs Normal 0.0-2.0 [facility] Comment on above: Performed By: #### L [id number] ####Insurance Billing Specialist: VELMA VALADEZ ([phone])[facility])[address] [place] [address] Platelet mean volume (Bld) [Entitic vol] 10.4 fL Normal 9.0-12.7 [facility] Comment on above: Performed By: #### L [id number] ####Insurance Billing Specialist: VELMA VALADEZ ([phone])[facility])[address] [place] [address] Platelets (Bld) [#/Vol] 207 10*3/uL Normal 140-440 [facility] Comment on above: Performed By: #### L [id number] ####Insurance Billing Specialist: VELMA VALADEZ ([phone])[facility])[address] [place] [address] RBC (Bld) [#/Vol] 3.20 10*6/uL Low 3.80-5.20 [facility] Comment on above: Performed By: #### L [id number] ####Insurance Billing Specialist: VELMA VALADEZ ([phone])[facility])[address] [place] [address] WBC (Bld) [#/Vol] 4.5 10*3/uL Normal 3.6-10.7 [facility] Comment on above: Performed By: #### L [id number] ####Insurance Billing Specialist: VELMA VALADEZ ([phone])[address] No Panel Informationon 04-06 There is no interpretation needed for this exam. IMAGING Nursing Noteon 04-06-2024 Nursing Note Patient report rader d to 4N RN and denies any further questions. Patient resting comfortably and no signs of distress. Per resident patient to lay flat for 2 hours and restart heparin GTT at 1215. Transport notified. Normal [facility] Op Noteon 04-06-2024 Op Note Normal [facility] Progress Noteon 04-06-2024 Progress Note Normal [facility] Progress Note Normal [facility] Progress Note Normal [facility] aPTT Coag (Bld) [Time]on aPTT Coag (PPP) [Time] 43.3 s High 20.0 - 30.5 s [facility] Interpretation and review of laboratory results Abnormal [facility] NOTE: The therapeuti c time for Heparin anticoagulation, based on Xa activity inhibition, is an APTT of 46-80 seconds. [facility] aPTT Coag (PPP) [Time] 97.6 s High 20.0 - 30.5 s [facility] Interpretation and review of laboratory results Abnormal [facility] NOTE: The therapeuti c time for Heparin anticoagulation, based on Xa activity inhibition, is an APTT of 46-80 seconds. [facility] 36on 04-05-2024 36 Surgery: Inpatient R LE venous mechanical thrombectomy Date of surgery: 04/06/24 Pre-testing: inpatient CPT codes: 50287 ICD 10: I82.401 Post-op or OV: Adriane to schedule Reps: Selvin (Toño) notified 04/05/24 [facility] [facility] APTTon 04-05-2024 aPTT Coag (Bld) [Time] 76.6 s High 20.0-30.5 [facility] Comment on above: Result Comment: BUBBA Garcia COMMENTS:NOTE: The therapeutic time for Heparin anticoagulation, based on Xa activity inhibition, is an APTT of 46-80 seconds. Performed By: #### L [id number], [id number] ####Insurance Billing Specialist: VELMA VALADEZ ([phone])[address] aPTT Coag (Bld) [Time] 69.9 s High 20.0-30.5 [facility] Comment on above: Result Comment: BUBBA Garcia COMMENTS:NOTE: The therapeutic time for Heparin anticoagulation, based on Xa activity inhibition, is an APTT of 46-80 seconds. Performed By: #### L [id number] ####Insurance Billing Specialist: VELMA VALADEZ ([phone])[facility])[address] [place] [address] aPTT Coag (Bld) [Time] 88.8 s High 20.0-30.5 [facility] Comment on above: Result Comment: BUBBA Garcia COMMENTS:NOTE: The therapeutic time for Heparin anticoagulation, based on Xa activity inhibition, is an APTT of 46-80 seconds. Performed By: #### L [id number], [id number] ####Insurance Billing Specialist: VELMA VALADEZ ([phone])[facility])[address] [place] [address] aPTT Coag (Bld) [Time] 109.7 s High 20.0-30.5 [facility] Comment on above: Result Comment: BUBBA Garcia COMMENTS:NOTE: The therapeutic time for Heparin anticoagulation, based on Xa activity inhibition, is an APTT of 46-80 seconds. Performed By: #### L [id number] ####Insurance Billing Specialist: VELMA VALADEZ ([phone])[facility])[address] [place] [address] BASIC METABOLIC PANELon 03-18 Anion gap [Moles/Vol] 3 mmol/L Normal 3-13 [facility] Comment on above: Performed By: #### L [id number] ####Insurance Billing Specialist: VELMA VALADEZ ([phone])[facility])[address] [place] [address] Calcium [Mass/Vol] 8.7 mg/dL Normal 8.4-10.4 [facility] Comment on above: Performed By: #### L [id number] ####Insurance Billing Specialist: VELMA VALADEZ ([phone])[facility])[address] [place] [address] [place] Chloride [Moles/Vol] 113 mmol/L High 98-107 [facility] Comment on above: Performed By: #### L [id number] ####Insurance Billing Specialist: VELMA VALADEZ ([phone])[facility])[address] [place] [address] CO2 [Moles/Vol] 17 mmol/L Low 22-30 [facility] Comment on above: Performed By: #### L [id number] ####Insurance Billing Specialist: VELMA VALADEZ ([phone])[facility])[address] [place] [address] Creatinine [Mass/Vol] 1.12 mg/dL High 0.52-1.04 [facility] Comment on above: Performed By: #### L [id number] ####Insurance Billing Specialist: VELMA VALADEZ ([phone])[facility] ([facility])[address] [place] [address] GLOMERULAR FILTRATION RATE ML/MIN/1.73 SQ M.PREDICTED 48.6 mL/min/1.73m*2 Low >60.0 [facility] Comment on above: Result Comment: Calc ulation based on the Chronic Kidney Disease Epidemiology Collaboration (CKD-EPI) equation refit without adjustment for race Performed By: #### L [id number] ####Insurance Billing Specialist: VELMA VALADEZ ([phone])[facility] ([facility])[address] [place] [address] Glucose [Mass/Vol] 102 mg/dL High 70-100 [facility] Comment on above: Performed By: #### L [id number] ####Insurance Billing Specialist: VELMA VALADEZ ([phone])[facility])[address] [place] [address] Potassium [Moles/Vol] 4.8 mmol/L Normal 3.5-5.1 [facility] Comment on above: Performed By: #### L [id number] ####Insurance Billing Specialist: VELMA VALADEZ ([phone])[facility] ([facility])[address] [place] [address] [place] Sodium [Moles/Vol] 133 mmol/L Low 135-145 [facility] Comment on above: Performed By: #### L [id number] ####Insurance Billing Specialist: VELMA VALADEZ ([phone])[facility] ([facility])[address] [place] [address] Urea nitrogen [Mass/Vol] 25 mg/dL High 7-17 [facility] Comment on above: Performed By: #### L [id number] ####Insurance Billing Specialist: VELMA VALADEZ ([phone])[facility] ([facility] Basic metabolic 1998 panelon 04-05-2024 Anion gap [Moles/Vol] 3 mmol/L 3 - 13 mmol/L [facility] Calcium [Mass/Vol] 8.7 mg/dL 8.4 - 10. 4 mg/dL [facility] Chloride [Moles/Vol] 113 mmol/L High 98 - 10 7 mmol/L [facility] CO2 [Moles/Vol] 17 mmol/L Low 22 - 30 mmol/L [facility] Creatinine [Mass/Vol] 1.12 mg/dL High 0.52 - 1.04 mg/dL [facility] GFR/1.73 sq M.predicted (S/P/Bld) [Vol rate/Area] 48.6 mL/min Low - PINF [facility] Comment on above: Calculation based on the Chronic Kidney Disease Epidemiology Collaboration (CKD-EPI) equation refit without adjustment for race Glucose [Mass/Vol] 102 mg/dL High 70 - 100 mg/dL [facility] Interpretation and review of laboratory results Abnormal [facility] Potassium [Moles/Vol] 4.8 mmol/L 3.5 - 5.1 mmol/L [facility] Sodium [Moles/Vol] 133 mmol/L Low 135 - 145 mmol/L [facility] Urea nitrogen [Mass/Vol] 25 mg/dL High 7 - 17 mg/dL [facility] CARECOORDon 04-05-2024 CARECOORD Normal [facility] CBC W Auto Differential pane l (Bld)on 04-05-2024 Basophils (Bld) [#/Vol] 0.1 10*3/uL 0.0 - 0.2 10*3/uL [facility] Basophils/100 WBC (Bld) 1.0 % 0.0 - 2.0 % [facility] Eosinophils (Bld) [#/Vol] 0.2 10*3/uL 0.0 - 0.5 10*3/uL [facility] Eosinophils/100 WBC (Bld) 2.9 % 0.0 - 6.0 % [facility] Erythrocyte distribution width (RBC) [Ratio] 14.4 % 11.5 - 15.0 % [facility] Hematocrit (Bld) [Volume fraction] 32.3 % Low 35.0 - 47.0 % [facility] Hemoglobin (Bld) [Mass/Vol] 10.6 g/dL Low 11.7 - 16.0 g/dL [facility] Immature granulocytes (Bld) [#/Vol] 0.0 10*3/uL NINF - 0.1 10*3/uL [facility] Immature granulocytes/100 WBC (Bld) 0.3 % 0.0 - 2.0 % [facility] Interpretation and review of laboratory results Abnormal [facility] Lymphocytes (Bld) [#/Vol] 1.7 10*3/uL 1.0 - 4.3 10*3/uL [facility] Lymphocytes/100 WBC (Bld) 27.5 % 15.0 - 45.0 % [facility] MCH (RBC) [Entitic mass] 30.7 pg 26.0 - 34.0 pg [facility] MCHC (RBC) [Mass/Vol] 32.8 % 30.5 - 36.0 % [facility] MCV (RBC) [Entitic vol] 93.6 fL 77.0 - 99.0 fL [facility] Monocytes (Bld) [#/Vol] 0.6 10*3/uL 0.0 - 0.9 10*3/uL [facility] Monocytes/100 WBC (Bld) 9.0 % 5.0 - 13.0 % [facility] Neutrophils (Bld) [#/Vol] 3.6 10*3/uL 1.8 - 7.5 10*3/uL [facility] Neutrophils/100 WBC (Bld) 59.3 % 38.0 - 82.0 % [facility] Nucleated RBC/100 WBC (Bld) [Ratio] 0.0 % [facility] Platelet mean volume (Bld) [Entitic vol] 10.1 fL 9.0 - 12.7 fL [facility] Platelets (Bld) [#/Vol] 204 10*3/uL 140 - 440 10*3/uL [facility] RBC (Bld) [#/Vol] 3.45 10*6/uL Low 3.80 - 5.2 0 10*6/uL [facility] WBC (Bld) [#/Vol] 6.1 10*3/uL 3.6 - 10.7 10*3/uL [facility] CBC WITH AUTO DIFFERENTIALon 04-05-2024 Basophils (Bld) [#/Vol] 0.1 10*3/uL Normal 0.0-0.2 [facility] Comment on above: Performed By: #### L [id number] ####Insurance Billing Specialist: VELMA VALADEZ ([phone])[facility] ([facility])[address] [place] [address] Basophils/100 WBC (Bld) 1.0 % Normal 0.0-2.0 [facility] Comment on above: Performed By: #### L [id number] ####Insurance Billing Specialist: VELMA VALADEZ ([phone])[facility])[address] [place] [address] Eosinophils (Bld) [#/Vol] 0.2 10*3/uL Normal 0.0-0.5 [facility] Comment on above: Performed By: #### L [id number] ####Insurance Billing Specialist: VELMA VALADEZ ([phone])[facility] ([facility])[address] [place] [address] Eosinophils/100 WBC (Bld) 2.9 % Normal 0.0-6.0 [facility] Comment on above: Performed By: #### L [id number] ####Insurance Billing Specialist: VELMA VALADEZ ([phone])[facility])[address] [place] [address] Erythrocyte distribution width (RBC) [Ratio] 14.4 % Normal 11.5-15.0 [facility] Comment on above: Performed By: #### L [id number] ####Insurance Billing Specialist: VELMA VALADEZ ([phone])[facility])[address] [place] [address] Hematocrit (Bld) [Volume fraction] 32.3 % Low 35.0-47.0 [facility] Comment on above: Performed By: #### L [id number] ####Insurance Billing Specialist: VELMA [phone])[facility] [place] [address] Hemoglobin (Bld) [Mass/Vol] 10.6 g/dL Low 11.7-16.0 [facility] Comment on above: Performed By: #### L [id number] ####Insurance Billing Specialist: VELMA VALADEZ ([phone])[facility])[address] [place] [address] IMMATURE GRANS % 0.3 % Normal 0.0-2.0 [facility] Comment on above: Performed By: #### L [id number] ####Insurance Billing Specialist: VELMA VALADEZ ([phone])[facility])[address] [place] [address] IMMATURE GRANS ABSOLUTE 0.0 10*3/uL Normal <0.1 [facility] Comment on above: Performed By: #### L [id number] ####Insurance Billing Specialist: VELMA VALADEZ ([phone])[facility])[address] [place] [address] Lymphocytes (Bld) [#/Vol] 1.7 10*3/uL Normal 1.0-4.3 [facility] Comment on above: Performed By: #### L [id number] ####Insurance Billing Specialist: VELMA VALADEZ ([phone])[facility])[address] [place] [address] Lymphocytes/100 WBC (Bld) 27.5 % Normal 15.0-45.0 [facility] Comment on above: Performed By: #### L [id number] ####Insurance Billing Specialist: VELMA VALADEZ ([phone])[facility])[address] [place] [address] MCH (RBC) [Entitic mass] 30.7 pg Normal 26.0-34.0 [facility] Comment on above: Performed By: #### L [id number] ####Insurance Billing Specialist: VELMA VALADEZ ([phone])[facility])[address] [place] [address] MCHC 32.8 % Normal 30.5-36.0 [facility] Comment on above: Performed By: #### L [id number] ####Insurance Billing Specialist: VELMA VALADEZ ([phone])[facility])[address] [place] [address] MCV (RBC) [Entitic vol] 93.6 fL Normal 77.0-99.0 [facility] Comment on above: Performed By: #### L [id number] ####Insurance Billing Specialist: VELMA VALADEZ ([phone])[facility] ([facility])[address] [place] [address] Monocytes (Bld) [#/Vol] 0.6 10*3/uL Normal 0.0-0.9 [facility] Comment on above: Performed By: #### L [id number] ####Insurance Billing Specialist: VELMA VALADEZ ([phone])[facility])[address] [place] [address] Monocytes/100 WBC (Bld) 9.0 % Normal 5.0-13.0 [facility] Comment on above: Performed By: #### L [id number] ####Insurance Billing Specialist: VELMA VALADEZ ([phone])[facility])[address] [place] [address] NEUTROPHILS ABSOLUTE 3.6 10*3/uL Normal 1.8-7.5 [facility] Comment on above: Performed By: #### L [id number] ####Insurance Billing Specialist: VELMA VALADEZ ([phone])[facility])[address] [place] [address] Neutrophils/100 WBC (Bld) 59.3 % Normal 38.0-82.0 [facility] Comment on above: Performed By: #### L [id number] ####Insurance Billing Specialist: VELMA VALADEZ ([phone])[facility])[address] [place] [address] NRBC 0.0 /100 WBCs Normal 0.0-2.0 [facility] Comment on above: Performed By: #### L [id number] ####Insurance Billing Specialist: VELMA VALADEZ ([phone])[facility] ([facility])[address] [place] [address] Platelet mean volume (Bld) [Entitic vol] 10.1 fL Normal 9.0-12.7 [facility] Comment on above: Performed By: #### L [id number] ####Insurance Billing Specialist: VELMA VALADEZ ([phone])[facility] ([facility])[address] [place] [address] [place] Platelets (Bld) [#/Vol] 204 10*3/uL Normal 140-440 [facility] Comment on above: Performed By: #### L [id number] ####Insurance Billing Specialist: VELMA VALADEZ ([phone])[facility] ([facility])[address] [place] [address] RBC (Bld) [#/Vol] 3.45 10*6/uL Low 3.80-5.20 [facility] Comment on above: Performed By: #### L [id number] ####Insurance Billing Specialist: VELMA VALADEZ ([phone])[facility] ([facility])[address] [place] [address] WBC (Bld) [#/Vol] 6.1 10*3/uL Normal 3.6-10.7 [facility] Comment on above: Performed By: #### L [id number] ####Insurance Billing Specialist: VELMA VALADEZ ([phone])[facility] ([facility])[address] [place] [address] IDNon 04-05-2024 IDN The patient is Moderately Stable - Low risk of patient condition declining or worsening The patient's goals for the shift include met The clinical goals for the shift include met Normal [facility] Laboratory - Coagulationon 0 04-05-2024 PT Coag (Bld) [Time] 11.4 s 9.0 - 1 2.0 s [facility] PT Coag (Bld) [Time] 11.9 s 9.0 - 1 2.0 s [facility] No Panel Informationon 04-05 [facility] PROTHROMBIN TIMEon INR Coag (PPP) [Relative time] 1.0 {INR} Normal 0.9-1.1 [facility] Comment on above: Performed By: #### L [id number], [id number] ####Insurance Billing Specialist: VELMA VALADEZ ([phone])[facility])[address] [place] [address] PT Coag (PPP) [Time] 11.4 s Normal 9.0-12.0 [facility] Comment on above: Performed By: #### L [id number], [id number] ####Insurance Billing Specialist: VELMA VALADEZ ([phone])[facility])[address] [place] [address] INR Coag (PPP) [Relative time] 1.1 {INR} Normal 0.9-1.1 [facility] Comment on above: Result Comment: Timothy mmended [...] Myocardial Infarction Performed By: #### L [id number], [id number] ####Insurance Billing Specialist: VELMA VALADEZ ([phone])[facility] ([facility])[address] [place] [address] PT Coag (PPP) [Time] 11.9 s Normal 9.0-12.0 [facility] Comment on above: Performed By: #### L [id number], [id number] ####Insurance Billing Specialist: VELMA VALADEZ ([phone])[facility])[address] [place] [address] [place] PT Coag (Bld) [Time]on 04-05 INR Coag (PPP) [Relative time] 1.0 {INR} 0.9 - 1.1 [facility] Interpretation and review of laboratory results Normal [facility] INR Coag (PPP) [Relative time] 1.1 {INR} 0.9 - 1.1 [facility] Comment on above: Recommended Anticoag ulant Therapy: [...] Interpretation and review of laboratory results Normal [facility] Progress Noteon 04-05-2024 Progress Note Normal [facility] Progress Note Nutrition rescreen completed. Chart reviewed. Patient to be monitored and followed by the diet laser technician. FADI Harmon Normal [facility] Progress Note Normal [facility] Progress Note Normal [facility] aPTT Coag (Bld) [Time]on aPTT Coag (PPP) [Time] 76.6 s High 20.0 - 30.5 s [facility] Interpretation and review of laboratory results Abnormal [facility] NOTE: The therapeuti c time for Heparin anticoagulation, based on Xa activity inhibition, is an APTT of 46-80 seconds. [facility] aPTT Coag (PPP) [Time] 69.9 s High 20.0 - 30.5 s [facility] Interpretation and review of laboratory results Abnormal [facility] NOTE: The therapeuti c time for Heparin anticoagulation, based on Xa activity inhibition, is an APTT of 46-80 seconds. [facility] aPTT Coag (PPP) [Time] 88.8 s High 20.0 - 30.5 s [facility] Interpretation and review of laboratory results Abnormal [facility] NOTE: The therapeuti c time for Heparin anticoagulation, based on Xa activity inhibition, is an APTT of 46-80 seconds. [facility] aPTT Coag (Bld) [Time]Lissettee d By: Juni Millard on 04-05-2024 aPTT Coag (PPP) [Time] 109.7 s High 20.0 - 30.5 s [facility] Interpretation and review of laboratory results Abnormal [facility] NOTE: The therapeuti c time for Heparin anticoagulation, based on Xa activity inhibition, is an APTT of 46-80 seconds. [facility] [id number] 04-04-2024 [id number] Normal [facility] [id number] Normal [facility] APTTon 04-04-2024 aPTT Coag (Bld) [Time] 81.8 s High 20.0-30.5 [facility] Comment on above: Result Comment: BUBBA Garcia COMMENTS:NOTE: The therapeutic time for Heparin anticoagulation, based on Xa activity inhibition, is an APTT of 46-80 seconds. Performed By: #### L [id number] ####Insurance Billing Specialist: VELMA VALADEZ ([phone])[facility])[address] [place] [address] aPTT Coag (Bld) [Time] 81.4 s High 20.0-30.5 [facility] Comment on above: Result Comment: BUBBA Garcia COMMENTS:NOTE: The therapeutic time for Heparin anticoagulation, based on Xa activity inhibition, is an APTT of 46-80 seconds. Performed By: #### L [id number] ####Insurance Billing Specialist: VELMA VALADEZ ([phone])[facility] ([facility])[address] [place] [address] aPTT Coag (Bld) [Time] 132.2 s Critically high 20.0-30. 5 [facility] Comment on above: Result Comment: BUBBA Garcia COMMENTS:NOTE: The therapeutic time for Heparin anticoagulation, based on Xa activity inhibition, is an APTT of 46-80 seconds. Performed By: #### L [id number] ####Insurance Billing Specialist: VELMA VALADEZ ([phone])[facility] ([facility])[address] [place] [address] BASIC METABOLIC PANELon 03-18 Anion gap [Moles/Vol] 8 mmol/L Normal 3-13 [facility] Comment on above: Performed By: #### L [id number] ####Insurance Billing Specialist: VELMA VALADEZ ([phone])[facility])[address] [place] [address] Calcium [Mass/Vol] 9.3 mg/dL Normal 8.4-10.4 [facility] Comment on above: Performed By: #### L [id number] ####Insurance Billing Specialist: VELMA VALADEZ ([phone])[facility] ([facility])[address] [place] [address] Chloride [Moles/Vol] 110 mmol/L High 98-107 [facility] Comment on above: Performed By: #### L AB15 ####Insurance Billing Specialist: VELMA VALADEZ ([phone])[facility] ([facility])[address] [place] [address] CO2 [Moles/Vol] 18 mmol/L Low 22-30 [facility] Comment on above: Performed By: #### L AB15 ####Insurance Billing Specialist: VELMA VALADEZ ([phone])[facility] ([facility])[address] [place] [address] Creatinine [Mass/Vol] 1.45 mg/dL High 0.52-1.04 [facility] Comment on above: Performed By: #### L [id number] ####Insurance Billing Specialist: VELMA VALADEZ ([phone])[facility] ([facility])[address] [place] [address] GLOMERULAR FILTRATION RATE ML/MIN/1.73 SQ M.PREDICTED 35.6 mL/min/1.73m*2 Low >60.0 [facility] Comment on above: Result Comment: Calc ulation based on the Chronic Kidney Disease Epidemiology Collaboration (CKD-EPI) equation refit without adjustment for race Performed By: #### L AB15 ####Insurance Billing Specialist: VELMA VALADEZ ([phone])[facility] [place] [address] [place] Glucose [Mass/Vol] 100 mg/dL Normal 70-100 [facility] Comment on above: Performed By: #### L [id number] ####Insurance Billing Specialist: VELMA VALADEZ ([phone])[facility] ([facility])[address] [place] [address] Potassium [Moles/Vol] 4.5 mmol/L Normal 3.5-5.1 [facility] Comment on above: Performed By: #### L AB15 ####Insurance Billing Specialist: VELMA VALADEZ ([phone])[facility] ([facility])[address] [place] [address] Sodium [Moles/Vol] 135 mmol/L Normal 135-145 [facility] Comment on above: Performed By: #### L AB15 ####Insurance Billing Specialist: VELMA VALADEZ ([phone])[facility] ([facility])[address] [place] [address] Urea nitrogen [Mass/Vol] 30 mg/dL High 7-17 [facility] Comment on above: Performed By: #### L AB15 ####Insurance Billing Specialist: VELMA VALADEZ ([phone])[facility] ([facility])[address] [place] [address] Basic metabolic 1998 panelOr dered By: Marielle Garcia on 04-04-2024 Anion gap [Moles/Vol] 8 mmol/L 3 - 13 mmol/L [facility] Calcium [Mass/Vol] 9.3 mg/dL 8.4 - 10. 4 mg/dL [facility] Chloride [Moles/Vol] 110 mmol/L High 98 - 10 7 mmol/L [facility] CO2 [Moles/Vol] 18 mmol/L Low 22 - 30 mmol/L [facility] Creatinine [Mass/Vol] 1.45 mg/dL High 0.52 - 1.04 mg/dL [facility] GFR/1.73 sq M.predicted (S/P/Bld) [Vol rate/Area] 35.6 mL/min Low - PINF [facility] Comment on above: Calculation based on the Chronic Kidney Disease Epidemiology Collaboration (CKD-EPI) equation refit without adjustment for race Glucose [Mass/Vol] 100 mg/dL 70 - 100 mg/dL [facility] Interpretation and review of laboratory results Abnormal [facility] Potassium [Moles/Vol] 4.5 mmol/L 3.5 - 5.1 mmol/L [facility] Sodium [Moles/Vol] 135 mmol/L 135 - 145 mmol/L [facility] Urea nitrogen [Mass/Vol] 30 mg/dL High 7 - 17 mg/dL [facility] CARECOORDon 04-04-2024 CARECOORD Normal [facility] CBC W Auto Differential pane l (Bld)on 04-04-2024 Basophils (Bld) [#/Vol] 0.1 10*3/uL 0.0 - 0.2 10*3/uL [facility] Basophils/100 WBC (Bld) 0.7 % 0.0 - 2.0 % [facility] Eosinophils (Bld) [#/Vol] 0.3 10*3/uL 0.0 - 0.5 10*3/uL [facility] Eosinophils/100 WBC (Bld) 3.2 % 0.0 - 6.0 % [facility] Erythrocyte distribution width (RBC) [Ratio] 14.2 % 11.5 - 15.0 % [facility] Hematocrit (Bld) [Volume fraction] 38.8 % 35.0 - 47.0 % [facility] Hemoglobin (Bld) [Mass/Vol] 12.5 g/dL 11.7 - 16.0 g/dL [facility] Immature granulocytes (Bld) [#/Vol] 0.1 10*3/uL High NINF - 0.1 10*3/uL [facility] Immature granulocytes/100 WBC (Bld) 0.6 % 0.0 - 2.0 % [facility] Interpretation and review of laboratory results Abnormal [facility] Lymphocytes (Bld) [#/Vol] 1.6 10*3/uL 1.0 - 4.3 10*3/uL [facility] Lymphocytes/100 WBC (Bld) 19.2 % 15.0 - 45.0 % [facility] MCH (RBC) [Entitic mass] 29.7 pg 26.0 - 34.0 pg [facility] MCHC (RBC) [Mass/Vol] 32.2 % 30.5 - 36.0 % [facility] MCV (RBC) [Entitic vol] 92.2 fL 77.0 - 99.0 fL [facility] Monocytes (Bld) [#/Vol] 0.8 10*3/uL 0.0 - 0.9 10*3/uL [facility] Monocytes/100 WBC (Bld) 9.9 % 5.0 - 13.0 % [facility] Neutrophils (Bld) [#/Vol] 5.3 10*3/uL 1.8 - 7.5 10*3/uL [facility] Neutrophils/100 WBC (Bld) 66.4 % 38.0 - 82.0 % [facility] Nucleated RBC/100 WBC (Bld) [Ratio] 0.0 % [facility] Platelet mean volume (Bld) [Entitic vol] 10.0 fL 9.0 - 12.7 fL [facility] Platelets (Bld) [#/Vol] 266 10*3/uL 140 - 440 10*3/uL [facility] RBC (Bld) [#/Vol] 4.21 10*6/uL 3.80 - 5.2 0 10*6/uL [facility] WBC (Bld) [#/Vol] 8.1 10*3/uL 3.6 - 10.7 10*3/uL [facility] CBC WITH AUTO DIFFERENTIALon 04-04-2024 Basophils (Bld) [#/Vol] 0.1 10*3/uL Normal 0.0-0.2 [facility] Comment on above: Performed By: #### L [id number] ####Insurance Billing Specialist: VELMA VALADEZ ([phone])[facility])[address] [place] [address] Basophils/100 WBC (Bld) 0.7 % Normal 0.0-2.0 [facility] Comment on above: Performed By: #### L [id number] ####Insurance Billing Specialist: VELMA VALADEZ ([phone])[facility])[address] [place] [address] [place] Eosinophils (Bld) [#/Vol] 0.3 10*3/uL Normal 0.0-0.5 [facility] Comment on above: Performed By: #### L [id number] ####Insurance Billing Specialist: VELMA VALADEZ ([phone])[facility])[address] [place] [address] [place] Eosinophils/100 WBC (Bld) 3.2 % Normal 0.0-6.0 [facility] Comment on above: Performed By: #### L [id number] ####Insurance Billing Specialist: VELMA [phone])[facility] Erythrocyte distribution width (RBC) [Ratio] 14.2 % Normal 11.5-15.0 [facility] Comment on above: Performed By: #### L [id number] ####Insurance Billing Specialist: VELMA VALADEZ ([phone])[facility])[address] [place] [address] Hematocrit (Bld) [Volume fraction] 38.8 % Normal 35.0-47.0 [facility] Comment on above: Performed By: #### L [id number] ####Insurance Billing Specialist: VELMA VALADEZ ([phone])[address] Hemoglobin (Bld) [Mass/Vol] 12.5 g/dL Normal 11.7-16.0 [facility] Comment on above: Performed By: #### L [id number] ####Insurance Billing Specialist: VELMA VALADEZ ([phone])[facility])[address] [place] [address] IMMATURE GRANS % 0.6 % Normal 0.0-2.0 [facility] Comment on above: Performed By: #### L [id number] ####Insurance Billing Specialist: VELMA VALADEZ ([phone])[facility])[address] [place] [address] IMMATURE GRANS ABSOLUTE 0.1 10*3/uL High <0.1 [facility] Comment on above: Performed By: #### L [id number] ####Insurance Billing Specialist: VELMA VALADEZ ([phone])[facility])[address] [place] [address] Lymphocytes (Bld) [#/Vol] 1.6 10*3/uL Normal 1.0-4.3 [facility] Comment on above: Performed By: #### L [id number] ####Insurance Billing Specialist: VELMA VALADEZ ([phone])[facility])[address] [place] [address] Lymphocytes/100 WBC (Bld) 19.2 % Normal 15.0-45.0 [facility] Comment on above: Performed By: #### L [id number] ####Insurance Billing Specialist: VELMA VALADEZ ([phone])[facility])[address] [place] [address] MCH (RBC) [Entitic mass] 29.7 pg Normal 26.0-34.0 [facility] Comment on above: Performed By: #### L [id number] ####Insurance Billing Specialist: VELMA VALADEZ ([phone])[facility])[address] [place] [address] MCHC 32.2 % Normal 30.5-36.0 [facility] Comment on above: Performed By: #### L [id number] ####Insurance Billing Specialist: VELMA VALADEZ ([phone])[facility])[address] [place] [address] MCV (RBC) [Entitic vol] 92.2 fL Normal 77.0-99.0 [facility] Comment on above: Performed By: #### L [id number] ####Insurance Billing Specialist: VELMA VALADEZ ([phone])[facility])[address] [place] [address] Monocytes (Bld) [#/Vol] 0.8 10*3/uL Normal 0.0-0.9 [facility] Comment on above: Performed By: #### L [id number] ####Insurance Billing Specialist: VELMA VALADEZ ([phone])[facility])[address] [place] [address] Monocytes/100 WBC (Bld) 9.9 % Normal 5.0-13.0 [facility] Comment on above: Performed By: #### L [id number] ####Insurance Billing Specialist: VELMA VALADEZ ([phone])[facility])[address] [place] [address] NEUTROPHILS ABSOLUTE 5.3 10*3/uL Normal 1.8-7.5 [facility] Comment on above: Performed By: #### L [id number] ####Insurance Billing Specialist: VELMA VALADEZ ([phone])[facility] ([facility])[address] [place] [address] Neutrophils/100 WBC (Bld) 66.4 % Normal 38.0-82.0 [facility] Comment on above: Performed By: #### L [id number] ####Insurance Billing Specialist: VELMA VALADEZ ([phone])[facility] ([facility])[address] [place] [address] NRBC 0.0 /100 WBCs Normal 0.0-2.0 [facility] Comment on above: Performed By: #### L [id number] ####Insurance Billing Specialist: VELMA VALADEZ ([phone])[facility])[address] [place] [address] Platelet mean volume (Bld) [Entitic vol] 10.0 fL Normal 9.0-12.7 [facility] Comment on above: Performed By: #### L [id number] ####Insurance Billing Specialist: VELMA VALADEZ ([phone])[facility] ([facility])[address] [place] [address] [place] Platelets (Bld) [#/Vol] 266 10*3/uL Normal 140-440 [facility] Comment on above: Performed By: #### L [id number] ####Insurance Billing Specialist: VELMA VALADEZ ([phone])[facility] ([facility])[address] [place] [address] [place] RBC (Bld) [#/Vol] 4.21 10*6/uL Normal 3.80-5.20 [facility] Comment on above: Performed By: #### L [id number] ####Insurance Billing Specialist: VELMA VALADEZ ([phone])[facility] ([facility])[address] [place] [address] [place] WBC (Bld) [#/Vol] 8.1 10*3/uL Normal 3.6-10.7 [facility] Comment on above: Performed By: #### L [id number] ####Insurance Billing Specialist: VELMA VALADEZ ([phone])[facility] ([facility])[address] [place], [place] [id number] [facility] Consulton 04-04-2024 Consult Normal [facility] Consult Normal [facility] ECG 12-LEADon 04-04-2024 ECG 12-LEAD IMPRESSION: Atrial fibrillation Borderline T abnormalities, inferior leads Compared to ECG 08/28/11 Sinus rhythm no longer noted Electronically Signed On 04-04-2024 03:48:37 EDT by Sourav Swenson [facility] ED Nursing Noteon 04-04-2024 ED Nursing Note Report to Delia RADHA Bond RN 04/04/24 0342 [facility] ED Nursing Note Multiple attempts ma de to call report to [facility] with phone number provided by telephone operator receptionist, but when phone number dialed RN only gets busy tone. Will try again. Shannon Bond RN 04/04/24 0331 [facility] ED Nursing Note [facility] at bedside to transport pt to [facility]. Paperwork with EMS Shannon Bond RN 04/04/24 0314 [facility] IDNon 04-04-2024 IDN The patient is Moderately Stable - Low risk of patient condition declining or worsening The patient's goals for the shift include safety The clinical goals for the shift include therapeutic aptt Normal [facility] IDN [facility] No Panel Informationon 04-04 Left Pop Rfx 1.1 s [facility] Acute extensive DVT in the right lower [...] popliteal vein. 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 During the study 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 and transverse views were obtained. Pulsed wave doppler was performed. The exam was performed with the patient in the supine position. Overall the study quality was adequate. Study was technically difficult due to: bowel gas. CV CPACS Left MICHELLE 0.62 [facility] Left dorsalis pedis BP 78 mmHg [facility] Left posterior tibial 86 mmHg [facility] Right MICHELLE 0.55 [facility] Right arm BP 139 mmHg [facility] Right dorsalis pedis BP 65 mmHg [facility] Right posterior tibial 76 mmHg [facility] Right side findings: Resting MICHELLE is [...] of RLE discovered just before PVR testing. 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 Progress Note Normal [facility] Progress Note Normal [facility] Vital signsOrdered By: Cathy Swenson on 04-04-2024 Heart rate 82 /min bpm [employer] Work Phone: aPTT Coag (Bld) [Time]on aPTT Coag (PPP) [Time] 81.8 s High 20.0 - 30.5 s [facility] Interpretation and review of laboratory results Abnormal [facility] NOTE: The therapeuti c time for Heparin anticoagulation, based on Xa activity inhibition, is an APTT of 46-80 seconds. [employer] aPTT Coag (PPP) [Time] 81.4 s High 20.0 - 30.5 s [facility] Interpretation and review of laboratory results Abnormal [facility] NOTE: The therapeuti c time for Heparin anticoagulation, based on Xa activity inhibition, is an APTT of 46-80 seconds. [facility] aPTT Coag (Bld) [Time]Della chaudhry By: Devika Eisenberg on 04-04-2024 aPTT Coag (PPP) [Time] 132.2 s Critically high 20 .0 - 30.5 s [facility] Interpretation and review of laboratory results Abnormal [facility] NOTE: The therapeuti c time for Heparin anticoagulation, based on Xa activity inhibition, is an APTT of 46-80 seconds. [facility] APTTon 04-03-2024 aPTT Coag (Bld) [Time] 25.6 s Normal 20.0-30.5 [facility] Comment on above: Result Comment: BUBBA Garcia COMMENTS:NOTE: The therapeutic time for Heparin anticoagulation, based on Xa activity inhibition, is an APTT of 46-80 seconds. Performed By: #### L [id number] ####Insurance Billing Specialist: MARYLOU MAY ([phone])[facility] ([facility])[address] [place] [address] CBC (HEMOGRAM)on 04-03-2024 Erythrocyte distribution width (RBC) [Ratio] 14.4 % Normal 11.5-15.0 [facility] Comment on above: Performed By: #### L [id number] ####Insurance Billing Specialist: MARYLOU MAY ([phone])[facility] ([facility])[address] [place] [address] Hematocrit (Bld) [Volume fraction] 38.6 % Normal 35.0-47.0 [facility] Comment on above: Performed By: #### L [id number] ####Insurance Billing Specialist: MARYLOU MAY ([phone])[facility] ([facility])[address] [place] [address] Hemoglobin (Bld) [Mass/Vol] 12.7 g/dL Normal 11.7-16.0 [facility] Comment on above: Performed By: #### L [id number] ####Insurance Billing Specialist: MARYLOU MAY ([phone])[facility] ([facility])[address] MCH (RBC) [Entitic mass] 30.4 pg Normal 26.0-34.0 [facility] Comment on above: Performed By: #### L [id number] ####Insurance Billing Specialist: MARYLOU MAY ([phone])[facility] ([facility])[address] MCHC 32.9 % Normal 30.5-36.0 [facility] Comment on above: Performed By: #### L [id number] ####Insurance Billing Specialist: MARYLOU MAY ([phone])[facility]OSPITALSimran CARRILLOBossman ([facility])[address] MCV (RBC) [Entitic vol] 92.3 fL Normal 77.0-99.0 S [facility] Comment on above: Performed By: #### L [id number] ####Insurance Billing Specialist: MARYLOU MAY ([phone])[facility]PITALSimran VELASQUEZKANU ([facility])[address] Platelet mean volume (Bld) [Entitic vol] 10.0 fL Normal 9.0-12.7 [facility] Comment on above: Performed By: #### L [id number] ####Insurance Billing Specialist: MARYLOU MAY ([phone])[facility] HOSPITALSimran VELASQUEZCORALN ([facility])[address] [place] [address] [place] Platelets (Bld) [#/Vol] 283 10*3/uL Normal 140-440 [facility] Comment on above: Performed By: #### L [id number] ####Insurance Billing Specialist: MARYLOU MAY ([phone])[facility]ITALSimran VELASQUEZCORALN ([facility])[address] RBC (Bld) [#/Vol] 4.18 10*6/uL Normal 3.80-5.20 [facility] Comment on above: Performed By: #### L [id number] ####Insurance Billing Specialist: MARYLOU MAY ([phone])[facility] ([facility])[address] WBC (Bld) [#/Vol] 9.3 10*3/uL Normal 3.6-10.7 [facility] Comment on above: Performed By: #### L [id number] ####Insurance Billing Specialist: MARYLOU MAY ([phone])[facility] ([facility])[address] CBC panel Auto (Bld)on 04-03 Erythrocyte distribution width (RBC) [Ratio] 14.4 % 11.5 - 15.0 % [facility] Hematocrit (Bld) [Volume fraction] 38.6 % 35.0 - 47.0 % [facility] Hemoglobin (Bld) [Mass/Vol] 12.7 g/dL 11.7 - 16.0 g/dL [facility] Interpretation and review of laboratory results Normal [facility] MCH (RBC) [Entitic mass] 30.4 pg 26.0 - 34.0 pg [facility] MCHC (RBC) [Mass/Vol] 32.9 % 30.5 - 36.0 % [facility] MCV (RBC) [Entitic vol] 92.3 fL 77.0 - 99.0 fL [facility] Platelet mean volume (Bld) [Entitic vol] 10.0 fL 9.0 - 12.7 fL [facility] Platelets (Bld) [#/Vol] 283 10*3/uL 140 - 440 10*3/uL [facility] RBC (Bld) [#/Vol] 4.18 10*6/uL 3.80 - 5.2 0 10*6/uL [facility] WBC (Bld) [#/Vol] 9.3 10*3/uL 3.6 - 10.7 10*3/uL [facility] COMPREHENSIVE METABOLIC PANE Gilberto 04-03-2024 Albumin [Mass/Vol] 4.3 g/dL Normal 3.5-5.0 [facility] Comment on above: Performed By: #### L AB103, [id number], LAB17 ####Insurance Billing Specialist: MARYLOU MAY ([phone])[facility] ([facility])[address] ALP [Catalytic activity/Vol] 91 U/L Normal 38-126 [facility] Comment on above: Performed By: #### L AB103, [id number], LAB17 ####Insurance Billing Specialist: MARYLOU MAY ([phone])[facility]OSPITALA [facility]N ([facility])[address] ALT [Catalytic activity/Vol] 10 U/L Normal 0-34 [facility] Comment on above: Performed By: #### L AB103, [id number], LAB17 ####Insurance Billing Specialist: MARYLOU MAY ([phone])[facility]ITALA [facility] ([facility])[address] Anion gap [Moles/Vol] 9 mmol/L Normal 3-13 [facility] Comment on above: Performed By: #### [place]on DAWSON, [id number], LAB17 ####Insurance Billing Specialist: MARYLOU MAY ([phone])[facility] ([facility])[address] AST [Catalytic activity/Vol] 19 U/L Normal 15-46 [facility] Comment on above: Performed By: #### L AB103, [id number], LAB17 ####Insurance Billing Specialist: MARYLOU MAY ([phone])[facility] ([facility])[address] Bilirubin [Mass/Vol] 1.1 mg/dL Normal 0.2-1.3 [facility] Comment on above: Performed By: #### L ABJovan, [id number], LAB17 ####Insurance Billing Specialist: MARYLOU MAY ([phone])[facility] ([facility])[address] Calcium [Mass/Vol] 9.3 mg/dL Normal 8.4-10.4 [facility] Comment on above: Performed By: #### L AB103, [id number], LAB17 ####Insurance Billing Specialist: MARYLOU [phone])[facility] ([facility])[address] [place] [address] [place] Chloride [Moles/Vol] 107 mmol/L Normal 98-107 [facility] Comment on above: Performed By: #### [place] AB103, ERL495, LAB17 ####Insurance Billing Specialist: MARYLOU MAY ([phone])[facility] HOSPITALSimran VELASQUEZLOVELACE REHABILITATION HOSPITALN ([facility])[address] [place] [address] [place] CO2 [Moles/Vol] 20 mmol/L Low 22-30 [facility] Comment on above: Performed By: #### Weston DAWSON, [id number], LAB17 ####Insurance Billing Specialist: MARYLOU MAY ([phone])[facility] HOSPITALSimran VELASQUEZSOUTHEASTERN ARIZ[facility] ([facility])[address] Creatinine [Mass/Vol] 1.54 mg/dL High 0.52-1.04 [facility] Comment on above: Performed By: #### Weston DAWSON, [id number], LAB17 ####Insurance Billing Specialist: MARYLOU MAY ([phone])[facility] HOSPITALSimran VELASQUEZSOUTHEASTERN ARIZONA [facility] ([facility])[address] [place] [address] [place] GLOMERULAR FILTRATION RATE ML/MIN/1.73 SQ M.PREDICTED 33.2 mL/min/1.73m*2 Low >60.0 [facility] Comment on above: Result Comment: Calc ulation based on the Chronic Kidney Disease Epidemiology Collaboration (CKD-EPI) equation refit without adjustment for race Performed By: #### Weston DAWSON, [id number], LAB17 ####Insurance Billing Specialist: MARYLOU MAY ([phone])[facility] HOSPITALSimran CARRILLON ([facility])[address] [place] [address] [place] Glucose [Mass/Vol] 115 mg/dL High 70-100 [facility] Comment on above: Performed By: #### [place] REIS103, [id number], LAB17 ####Insurance Billing Specialist: MARYLOU MAY ([phone])[facility] HOSPITALSimran VELASQUEZSOUTHEASTERN ARIZ[facility] ([facility])[address] [place] [address] [place] Potassium [Moles/Vol] 5.7 mmol/L High 3.5-5.1 [facility] Comment on above: Performed By: #### L AB103, [id number], LAB17 ####Insurance Billing Specialist: MARYLOU MAY ([phone])[facility] ([facility])[address] Protein [Mass/Vol] 7.7 g/dL Normal 6.3-8.2 [facility] Comment on above: Performed By: #### L AB103, [id number], LAB17 ####Insurance Billing Specialist: MARYLOU MAY ([phone])[facility] ([facility])[address] Sodium [Moles/Vol] 135 mmol/L Normal 135-145 [facility] Comment on above: Performed By: #### L AB103, [id number], LAB17 ####Insurance Billing Specialist: MARYLOU MAY ([phone])[facility] ([facility])[address] Urea nitrogen [Mass/Vol] 29 mg/dL High 7-17 [facility] Comment on above: Performed By: #### L AB103, [id number], LAB17 ####Insurance Billing Specialist: MARYLOU MAY ([phone])[facility] (HLAB)[address] HEAD WO IV CONTRASTon CT HEAD WO IV CONTRAST Normal [facility] CT Head WO contraston 2023 1. No acute finding. Chronic left cerebellar infarct.. Report Dictated on Electronically Signed By: Toño Tang MD Electronically Signed Date/Time: 04/03/2024 9:21 PM T [facility] Patient Name: MEL CARVER RD : 1940 Exam Date/Time: 04/03/2024 21:06 Procedure: CT HEAD WO IV CONTRAST Ordering Provider: HE, , BERNIE Reason For Exam: right leg numbness CT [...] midline shift. No hydrocephalus. Left globe prosthesis. [facility] Toño Tang MD - 04/03/2024 [facility] 1940 [id number] Exam Date/Time: 04/03/2024 21:06 Procedure: CT HEAD [...] Electronically Signed Date/Time: 04/03/2024 9:21 PM EDT [facility] Radiology Study observation (narrative) [facility] CT Head WO contrastOrdered B y: Toño Tang on 04-03-2024 [facility] Hospital[facility]ures Work Phone: CTA AORTA BL ILIOFEMORAL W W Oon 04-03-2024 CTA AORTA BL ILIOFEMORAL W WO Normal [facility] CTA Thoracic and Abdominal A zachary and Bilateral Runoff Vessels WO and W contrast Cheryl 04-03-2024 1. Severe lower extremity atherosclerotic disease. 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 2. 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 3. Severe diverticulosis. Report Dictated on Electronically Signed By: Toño Tang MD Electronically Signed Date/Time: 04/03/2024 9:36 PM EDT [facility] Patient Name: MEL CARVER RD : 1940 [facility]#: [id number] Exam Date/Time: 04/03/2024 21:14 Procedure: CTA AORTA [...] into the mid to distal lower leg. [facility] RADIOLOGY SYSTEM Toño Tang MD - 04/03/2024 [...] Electronically Signed Date/Time: 04/03/2024 9:36 PM EDT [facility] Radiology Study observation (narrative) [facility] Comprehensive metabolic 1998 panelon 04-03-2024 Albumin [Mass/Vol] 4.3 g/dL 3.5 - 5.0 g/dL [facility] ALP [Catalytic activity/Vol] 91 U/L 38 - 126 U/L [facility] ALT [Catalytic activity/Vol] 10 U/L 0 - 34 U/L [facility] Anion gap [Moles/Vol] 9 mmol/L 3 - 13 mmol/L [facility] AST [Catalytic activity/Vol] 19 U/L 15 - 46 U/L [facility] Bilirubin [Mass/Vol] 1.1 mg/dL 0.2 - 1 .3 mg/dL [facility] Calcium [Mass/Vol] 9.3 mg/dL 8.4 - 10. 4 mg/dL [facility] Chloride [Moles/Vol] 107 mmol/L 98 - 10 7 mmol/L [facility] CO2 [Moles/Vol] 20 mmol/L Low 22 - 30 mmol/L [facility] Creatinine [Mass/Vol] 1.54 mg/dL High 0.52 - 1.04 mg/dL [facility] GFR/1.73 sq M.predicted (S/P/Bld) [Vol rate/Area] 33.2 mL/min Low - PINF [facility] Comment on above: Calculation based on the Chronic Kidney Disease Epidemiology Collaboration (CKD-EPI) equation refit without adjustment for race Glucose [Mass/Vol] 115 mg/dL High 70 - 100 mg/dL [facility] Interpretation and review of laboratory results Abnormal [facility] Potassium [Moles/Vol] 5.7 mmol/L High 3.5 - 5.1 mmol/L [facility] Protein [Mass/Vol] 7.7 g/dL 6.3 - 8.2 g/dL [facility] Sodium [Moles/Vol] 135 mmol/L 135 - 145 mmol/L [facility] Urea nitrogen [Mass/Vol] 29 mg/dL High 7 - 17 mg/dL [facility] ED Nursing Noteon 04-03-2024 ED Nursing Note Normal [facility] ED Provider Noteon ED Provider Note Normal [facility] Laboratory - Chemistry and C hemistry - challengeon 04-03-2024 Troponin I.cardiac [Mass/Vol] 0.014 ng/mL NINF - 0.034 ng/mL [facility] Magnesium [Mass/Vol] 2.3 mg/dL 1.6 - 2 .3 mg/dL [facility] Laboratory - Coagulationon 0 04-03-2024 aPTT Coag (PPP) [Time] 26.7 s 20.0 - 30.5 s [facility] INR Coag (PPP) [Relative time] 1.0 {INR} 0.9 - 1.1 [facility] Comment on above: Recommended Anticoag ulant Therapy: [...] 11.7 s 9.0 - 1 2.0 s [facility] MAGNESIUMon 04-03-2024 Magnesium [Mass/Vol] 2.3 mg/dL Normal 1.6-2.3 [facility] Comment on above: Performed By: #### L AB103, [id number], LAB17 ####Insurance Billing Specialist: MARYLOU MAY ([phone])[facility] ([facility])[address] [place] [address] Magnesium [Mass/Vol]on 04-03 Interpretation and review of laboratory results Normal [facility] No Panel Informationon 04-03 [facility] Interpretation and review of laboratory results Normal [facility] PROTIME AND APTTon aPTT Coag (Bld) [Time] 26.7 s Normal 20.0-30.5 [facility] Comment on above: Performed By: #### L [id number] ####Insurance Billing Specialist: MARYLOU MAY ([phone])[facility] ([facility])[address] [place] [address] INR Coag (PPP) [Relative time] 1.0 {INR} Normal 0.9-1.1 [facility] Comment on above: Result Comment: Timothy mmended [...] prevent Myocardial Infarction Performed By: #### L [id number] ####Insurance Billing Specialist: MARYLOU [phone])[facility] ([facility])[address] PT Coag (PPP) [Time] 11.7 s Normal 9.0-12.0 [facility] Comment on above: Performed By: #### L [id number] ####Insurance Billing Specialist: MARYLOU MAY ([phone])[facility] (SBAB)[address] TROPONIN Ion 04-03-2024 Troponin I.cardiac [Mass/Vol] 0.014 ng/mL Normal <0.034 [facility] Comment on above: Result Comment: BUBBA Garcia COMMENTS:Patients with high levels of Biotin oral intake (ie >5 mg/day) may have falsely decreased Troponin levels. Performed By: #### L [id number], [id number], LAB17 ####Insurance Billing Specialist: MARYLOU KUMARIJHONATHAN ([phone])[facility] ([facility] [place] [address] Troponin I.cardiac [Mass/Vol ]on 04-03-2024 Interpretation and review of laboratory results Normal [facility] Patients with high levels of Biotin oral intake (ie >5 mg/day) may have falsely decreased Troponin levels. [facility] aPTT Coag (Bld) [Time]on aPTT Coag (PPP) [Time] 25.6 s 20.0 - 30.5 s [facility] Interpretation and review of laboratory results Normal [facility] NOTE: The therapeuti c time for Heparin anticoagulation, based on Xa activity inhibition, is an APTT of 46-80 seconds. [facility] MR Lower leg - left WO and [...] Electronically Signed Date/Time: 06/16/2023 8:10 AM EST [facility] Patient Name: MEL CARVER RD [...] and lateral ankle resulting from ORIF hardware. [facility] Dimas Woodward MD - 06/16/2023 Patient [...] MD Electronically Signed Date/Time: 06/16/2023 8:10 AM [facility] MR Lower leg - left WO and W contrast IVOrdered By: Dimas Woodward on 06-16-2023 [employer] Work Phone: MR Lower leg - left WO and W contrast Cheryl 06-15-2023 Radiology Study observation (narrative) [facility] No Panel Informationon 05-24 No evidence of venous thrombus in the left lower extremity. Report Dictated on Electronically Signed By: Yasmany Whyte MD Electronically Signed Date/Time: 05/24/2023 11:42 AM [employer] [facility] Name: MEL CARVER RD [facility] 1940 [id number] Exam Date/Time: 05/24/2023 12:35 Procedure: VASC US [...] augmentation and normal response to Valsalva maneuver. Epiphyte Yasmany Whyte MD - 05/24/2023 Patient Name: [...] Electronically Signed Date/Time: 05/24/2023 11:[address] [address] Neck W contrast Cheryl 02-16 Patient [...] MD Electronically Signed Date/Time: 03/11/2023 10:28 AM [email or web address] Efrain Yi MD - 03/11/2023 Patient Name: MEL POP : 1940 [facility]#: [id number] Exam Date/Time: 03/08/2023 11:33 Procedure: CT SOFT [...] MD Electronically Signed Date/Time: 03/11/2023 10:28 AM [facility] CT Neck W contrast IVOrdered By: Efrain Yi on 03-11-2023 [facility] Work Phone: CT Neck W contrast Cheryl 02-16 Radiology Study observation (narrative) [facility] alth US Head and neck soft tissue on 02-24-2023 Indeterminate soft tissue nodules in the patients area of palpable concern in the left neck, which may represent enlarged left submandibular gland with obstructing sialolith and adjacent enlarged lymph node. Recommend further evaluation with contrast-enhanced neck CT. Report Dictated on Electronically Signed By: Ryan Mccollum MD Electronically Signed Date/Time: 02/24/2023 8:23 AM EDT [facility] Patient Name: MEL CARVER RD [...] measuring 1.8 x 1.6 x 1.4 cm. [facility] Ryan Mccollum MD - 02/24/2023 [...] Electronically Signed Date/Time: 02/24/2023 8:23 AM EDT [facility] Head and neck soft tissue Ordered By: Ryan Mccollum on 02-24-2023 [facility] Work Phone: [phone] [facility] Head and neck soft tissue on 02-22-2023 Radiology Study observation (narrative) Inna lockhart CONSULT PROGon 06-29-2022 CONSULT PROG HNO ID: [id number] Author: Nemo Petty APRN.CLOTH TRIMMER HAND Service: Wound/Ostomy Author Type: Nurse Practitioner Type: Consult Progress Note Filed: 06/29/2022 12:51 PM Note Text: WOUND CARE SERVICE PROGRESS VOCATIONAL EDUCATION PROFESSIONAL NOTE SERVICE DATE: 06/29/2022 SERVICE TIME: 10:20 TIME SPENT (minutes): 30 REASON FOR CONSULT: follow up wound care visit to reassess skin/wounds CHIEF COMPLAINT: right finger wound Subjective HISTORY OF PRESENT ILLNESS: Ms. Jose Alberto Castillo is a 81 year old female who is seen today with Delia Bruno, Wound/quoter, as a follow up wound care visit [...] Wound Image Site Assessment Red;Intact Allie-Wound Assessment [place] Drainage Amount None Treatments Protective Barrier Ointment Dressing Foam- Adhesive Active Orders Date Order Priority Status Authorizing Provider 06/28/22 1423 zinc oxide 20 % ointment Active Iwona Nakia Kimberley, DO 06/21/22 1248 DRESSING CARE (SPECIFY) ([place]) Routine Active Fidel Carmen APRN.CLOTH TRIMMER HAND - Specify:: Apply allevyn foam to coccyx, peel down every shift to assess skin and to apply zinc oxide, change every 3 days or if soiled. 06/21/22 1248 zinc oxide 20 % Active Fidel Carmen APRN.CLOTH TRIM[employer] HAND Wound 06/16/22 Incision Knee Left;Posterior (Active) Assessments 06/29/2022 10:27 AM Wound Image Site Assessment Dry;Intact Allie-Wound Assessment Intact Closure Sutures Drainage Amount None Treatments Open to Air No Linked orders to display Wound 06/21/22 0948 Atypical Wound Finger (Comment which one) Right (Active) Assessments 06/29/2022 10:23 AM Wound Image Site Assessment Red;[place] Allie-Wound Assessment Intact Wound Length (cm) 2 cm Wound Width (cm) 2.5 cm Wound Surface Area (cm2) 5 cm2 Wound Depth (cm) 0.1 cm Wound Volume (cm3) 0.5 (more content not included)... Normal [facility] NUTRITIONon 06-29-2022 NUTRITION HNO ID: [id number] Author: Iwona Pelayo RD Service: Nutrition Therapy Author Type: Registered Dietitian Type: Nutrition Filed: 06/29/2022 1:38 PM Note Text: NUTRITION THERAPY PROGRESS NOTE SERVICE DATE: 06/29/2022 SERVICE TIME: 13:30 Nutrition Assessment: Recommended Malnutrition Diagnosis: No Malnutrition Identified (06/23/22 1109 : Parul Mcallister RD) Estimated kilocalorie needs: 0250-5770 Calorie Calculation Method: 25-30 kcals/kg Estimated protein [...] DATE: June 29, 2022 TIME: 10:17 AM [facility] PT EDon 06-29-2022 PT ED HNO ID: [id number] Author: Joana Tolbert RPh Service: Pharmacy Author [...] tolerating anticoag therapy (thrombi) RN and outpatient [facility] pharmacy aware medications are pending to be [...] information Outcomes not met: N/A Joana Tolbert [facility] Normal [facility] CNDSon 06-28-2022 CNDS HNO ID: [id number] Author: Iwona Chu DO Service: Hospital Medicine [...] MD Attending: Collette Rahman DO Primary Service: [facility] MY CONDITION AT DISCHARGE: Stable REASON [...] micropuncture needle and serially upsized to a 5-Slovenian sheath. A venogram was then performed, which [...] time, the sheath was upsized to an 8-Slovenian sheath. An intravascular ultrasound was performed. This [...] [facility] for [facility]. Await ambulatory Pulse ox for possible home O2 need. Family to transport. Note chart merge with Discharge Disposition Discharge Disposition: Home With Home Care Activity When You Leave the Hospital Other: As tolerated Diet Instructions Other: I recommend a whole food plant based diet. [email or web address] for educational literat (more content not included)... Normal [facility] NURSING PROGon 06-28-2022 NURSING PROG HNO ID: [id number] Author: John Castro RN Service: Nursing Author Type: Registered Nurse Type: Nursing Progress Note Filed: 06/28/2022 2:28 PM Note Text: Other: Ambulatory pulse ox per Dr. Chu SpO2 on Room air at rest: 91% SpO2 while ambulating on Room air: 83% SpO2 while ambulating on 2 liters of oxygen: 91% Normal [facility] Bacteria Spec Resp Culton Bacteria identified Respiratory culture Nom (Unsp spec) CULTURE, RESPIRATORY: Few Normal respiratory radha present ORGANISM ID: 1 Few Lactose fermenting gram negative rods Insignificant colony count. No further workup. GRAM STAIN: Rare Gram positive cocci Few Polymorphonuclear leukocytes Few Epithelial cells Abnormal [facility] Comment on above: Performed By: #### 3 2355-0 #### [facility] CLIA [id number] [address] OF [facility] CONSULT PROGon 06-25-2022 CONSULT PROG HNO ID: [id number] Author: Cirilo Yip RPh Service: Pharmacy Author Type: Pharmacist Type: Consult Progress Note Filed: 06/25/2022 1:49 PM Note Text: PHARMACY ORAL ANTICOAGULATION PATIENT EDUCATION NOTE Oral anticoagulant: apixaban Indication: DVT/PE Patient New to medication: Yes LEARNERS Persons Present: Patient 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 [...] 2022 TIME: 1:48 PM Normal [facility] Bacteria Spec Resp Culton Bacteria identified Respiratory culture Nom (Unsp spec) CULTURE, RESPIRATORY: Moderate Normal respiratory radha present GRAM STAIN: Moderate Mixed oral radha Few Polymorphonuclear leukocytes Few Epithelial cells Abnormal [facility] Comment on above: Performed By: #### 3 2355-0 ####[facility]ATORYCLIA [id number] [place] [address] [place] Basic metabolic 2000 panelon 06-24-2022 Anion gap [Moles/Vol] 10 mmol/L Normal 9-18 [facility] Comment on above: Order Comment: Rhina mason Type: BLOOD SPECIMENOrdering Facility: [facility] Address: [address] [place] [address] Performed By: #### 2 4321-2, 69580-7 ####[facility]ATORYCLIA [id number] [place] [address] [place] Calcium [Mass/Vol] 9.0 mg/dL Normal 8.5-10.2 [facility] Comment on above: Order Comment: Rhina mason Type: BLOOD SPECIMENOrdering Facility: [facility] Address: [address] [place] [address] Performed By: #### 2 4321-2, 84342-5 ####[facility]ORYCLIA [id number] [address] Chloride [Moles/Vol] 103 mmol/L Normal 97-105 [facility] Comment on above: Order Comment: Speci men Type: BLOOD SPECIMENOrdering Facility: [facility] Address: [address] [place] [address] Performed By: #### 2 4321-2, 34105-2 ####[facility]ORYCLIA [id number] [address] OF [facility] CO2 [Moles/Vol] 23 mmol/L Normal 22-30 [facility] Comment on above: Order Comment: Speci men Type: BLOOD SPECIMENOrdering Facility: [facility] Address: [address] [place] [address] Performed By: #### 2 4321-2, 77051-2 ####[facility]ORYCLIA [id number] [address] Creatinine [Mass/Vol] 0.73 mg/dL Normal 0.58-0.96 [facility] Comment on above: Order Comment: Speci men Type: BLOOD SPECIMENOrdering Facility: [facility] Address: [address] [place] [address] Performed By: #### 2 4321-2, 64084-6 ####[facility]ORYCLIA [id number] [address] ESTIMATED GLOMERULAR FILTRATION RATE 82 mL/min/1.73m??? Normal >=60 [facility] Comment on above: Order Comment: Speci men Type: BLOOD SPECIMENOrdering Facility: [facility] Address: [address] [place] [address] Result Comment: Isa mated Glomerular Filtration Rate [...] actual GFR. Performed By: #### 2 4321-2, 23428-2 ####[facility]ATORYCLIA [id number] [place] [address] [place] Glucose [Mass/Vol] 165 mg/dL High 74-99 [facility] Comment on above: Order Comment: Speci men Type: BLOOD SPECIMENOrdering Facility: [facility] Address: [address] [place] [address] Result Comment: The [place] Diabetes Association (ADA) provides guidance for cutoff [...] Standards of Medical Care in Diabetes 2016, [place] [employer] Association. Diabetes Care. 2016.39(Suppl 1). Performed By: #### 2 4321-2, 56818-8 ####[facility]ATORYCLIA [id number] [place] [address] [place] Potassium [Moles/Vol] 5.0 mmol/L Normal 3.7-5.1 [facility] Comment on above: Order Comment: Speci men Type: BLOOD SPECIMENOrdering Facility: [facility] Address: [address] [address] Performed By: #### 2 4321-2, 22242-3 ####[facility]ATORYCLIA [id number] [place] [address] [place] Sodium [Moles/Vol] 136 mmol/L Normal 136-144 [facility] Comment on above: Order Comment: Speci men Type: BLOOD SPECIMENOrdering Facility: [facility] Address: [address] [address] Performed By: #### 2 4321-2, 02147-4 ####[facility] LABORATORYCLIA [id number] [address] STATES [facility] Urea nitrogen [Mass/Vol] 14 mg/dL Normal 7-21 [facility] Comment on above: Order Comment: Speci men Type: BLOOD SPECIMENOrdering Facility: [facility] Address: [address] [place] [address] Performed By: #### 2 4321-2, 70484-8 ####[facility]ATORYCLIA [id number] [address] OF [facility] CBC panel Auto (Bld)on 06-24 Erythrocyte distribution width (RBC) [Ratio] 17.0 % High 11.5-15.0 [facility] Comment on above: Order Comment: Speci men Type: BLOOD SPECIMENOrdering Facility: [facility] Address: [address] [place] [address] Performed By: #### 5 8410-2 ####[facility]ORATORYCLIA [id number] [address] STATES OF [facility] Hematocrit (Bld) [Volume fraction] 27.2 % Low 36.0-46.0 [facility] Comment on above: Order Comment: Speci men Type: BLOOD SPECIMENOrdering Facility: [facility] Address: [address] [place] [address] Performed By: #### 5 8410-2 ####[facility]ORATORYCLIA [id number] [address] STATES OF [facility] Hemoglobin (Bld) [Mass/Vol] 8.9 g/dL Low 11.5-15.5 [facility] Comment on above: Order Comment: Speci men Type: BLOOD SPECIMENOrdering Facility: [facility] Address: [address] [place] [address] Performed By: #### 5 8410-2 ####[facility]ORATORYCLIA [id number] [address] [place] MCH (RBC) [Entitic mass] 30.9 pg Normal 26.0-34.0 [facility] Comment on above: Order Comment: Speci men Type: BLOOD SPECIMENOrdering Facility: [facility] Address: [address] [place] [address] Performed By: #### 5 8410-2 ####[facility]ORATORYCLIA [id number] [address] MCHC (RBC) [Mass/Vol] 32.7 g/dL Normal 30.5-36.0 [facility] Comment on above: Order Comment: Speci men Type: BLOOD SPECIMENOrdering Facility: [facility] Address: [address] [place] [address] Performed By: #### 5 8410-2 ####[facility]ORATORYCLIA [id number] [address] [place] MCV (RBC) [Entitic vol] 94.4 fL Normal 80.0-100.0 [facility] Comment on above: Order Comment: Speci men Type: BLOOD SPECIMENOrdering Facility: [facility] Address: [address] [place] [address] Performed By: #### 5 8410-2 ####[facility]ORATORYCLIA [id number] [address] Nucleated RBC (Bld) [#/Vol] 0.03 10*3/uL High <0.01 [facility] Comment on above: Order Comment: Speci men Type: BLOOD SPECIMENOrdering Facility: [facility] Address: [address] [place] [address] Performed By: #### 5 8410-2 ####[facility]ORATORYCLIA [id number] [address] Platelet mean volume (Bld) [Entitic vol] 9.8 fL Normal 9.0-12.7 [facility] Comment on above: Order Comment: Speci men Type: BLOOD SPECIMENOrdering Facility: [facility] Address: [address] [place] [address] Performed By: #### 5 8410-2 ####[facility]ORATORYCLIA [id number] [address] [place] Platelets (Bld) [#/Vol] 241 10*3/uL Normal 150-400 [facility] Comment on above: Order Comment: Speci men Type: BLOOD SPECIMENOrdering Facility: [facility] Address: [address] [place] [address] Performed By: #### 5 8410-2 ####[facility]ORATORYCLIA [id number] [place] [address] [place] RBC (Bld) [#/Vol] 2.88 10*6/uL Low 3.90-5.20 [facility] Comment on above: Order Comment: Speci men Type: BLOOD SPECIMENOrdering Facility: [facility] Address: [address] [place] [address] Performed By: #### 5 8410-2 ####[facility]ORATORYCLIA [id number] [address] WBC (Bld) [#/Vol] 6.37 10*3/uL Normal 3.70-11.00 [facility] Comment on above: Order Comment: Speci men Type: BLOOD SPECIMENOrdering Facility: [facility] Address: [address] [place] [address] Performed By: #### 5 8410-2 ####[facility]ORATORYCLIA [id number] [address] NT[facility]BNP [facility] Natriuretic peptide.B prohormone N-Terminal [Mass/Vol] 2971 pg/mL High <450 [facility] Comment on above: Order Comment: Speci men Type: BLOOD SPECIMENOrdering Facility: [facility] Address: [address] [place] [address] Performed By: #### 2 4321-2, 77970-4 ####[facility]ATORYCLIA [id number] [address] [place] aPTT PPPon 06-24-2022 aPTT Coag (PPP) [Time] 64.2 s High 23.0-32.4 [facility] Comment on above: Order Comment: Speci men Type: BLOOD SPECIMEN [facility] Address: [address] [place] [address] Performed By: #### T SCR #### [facility] CLIA [id number] [address] aPTT Coag (PPP) [Time] 45.8 s High 23.0-32.4 [facility] Comment on above: Order Comment: Speci men Type: BLOOD SPECIMENOrdering Facility: [facility] Address: [address] [place] [address] Performed By: #### 3 2355-0 #### [facility] CLIA [id number] [address] aPTT Coag (PPP) [Time] 116.8 s High 28.5-34.0 [facility] Comment on above: Order Comment: Speci men Type: BLOOD SPECIMENOrdering Facility: [facility] Address: [address] [place] [address] Performed By: #### 1 4979-9 ####[facility]ATORYCLIA [id number] [address] ALLIED HEALTHon 06-23-2022 ALLIED HEALTH HNO ID: [id number] Author: RT Rhina(R) Service: Radiology Author Type: [...] 23, 2022 9:41 PM Normal [facility] CBC panel Auto (Bld)on 06-23 Erythrocyte distribution width (RBC) [Ratio] 16.6 % High 11.5-15.0 [facility] Comment on above: Order Comment: Speci men Type: BLOOD SPECIMENOrdering Facility: [facility] Address: [address] [place] [address] Performed By: #### 5 8410-2 ####[facility]ORATORYCLIA [id number] [address] OF [facility] Hematocrit (Bld) [Volume fraction] 29.6 % Low 36.0-46.0 [facility] Comment on above: Order Comment: Speci men Type: BLOOD SPECIMENOrdering Facility: [facility] Address: [address] [place] [address] Performed By: #### 5 8410-2 ####[facility]ATORYCLIA [id number] [address] [place] Hemoglobin (Bld) [Mass/Vol] 9.5 g/dL Low 11.5-15.5 [facility] Comment on above: Order Comment: Speci men Type: BLOOD SPECIMENOrdering Facility: [facility] Address: [address] [place] [address] Performed By: #### 5 8410-2 ####[facility]ATORYCLIA [id number] [address] [place] MCH (RBC) [Entitic mass] 30.4 pg Normal 26.0-34.0 [facility] Comment on above: Order Comment: Speci men Type: BLOOD SPECIMENOrdering Facility: [facility] Address: [address] [place] [address] Performed By: #### 5 8410-2 ####[facility]ORYCLIA [id number] [address] [place] MCHC (RBC) [Mass/Vol] 32.1 g/dL Normal 30.5-36.0 [facility] Comment on above: Order Comment: Speci men Type: BLOOD SPECIMENOrdering Facility: [facility] Address: [address] [place] [address] Performed By: #### 5 8410-2 ####[facility]ATORYCLIA [id number] [address] MCV (RBC) [Entitic vol] 94.6 fL Normal 80.0-100.0 [facility] Comment on above: Order Comment: Speci men Type: BLOOD SPECIMENOrdering Facility: [facility] Address: [address] [place] [address] Performed By: #### 5 8410-2 ####[facility]ATORYCLIA [id number] [address] [place] Nucleated RBC (Bld) [#/Vol] 0.07 10*3/uL High <0.01 [facility] Comment on above: Order Comment: Speci men Type: BLOOD SPECIMENOrdering Facility: [facility] Address: [address] [place] [address] Performed By: #### 5 8410-2 ####[facility]ATORYCLIA [id number] [address] [place] Platelet mean volume (Bld) [Entitic vol] 9.9 fL Normal 9.0-12.7 [facility] Comment on above: Order Comment: Speci men Type: BLOOD SPECIMENOrdering Facility: [facility] Address: [address] [place] [address] Performed By: #### 5 8410-2 ####[facility]ATORYCLIA [id number] [address] [place] Platelets (Bld) [#/Vol] 241 10*3/uL Normal 150-400 [facility] Comment on above: Order Comment: Speci men Type: BLOOD SPECIMENOrdering Facility: [facility] Address: [address] [place] [address] Performed By: #### 5 8410-2 ####[facility]ORATORYCLIA [id number] [address] RBC (Bld) [#/Vol] 3.13 10*6/uL Low 3.90-5.20 [facility] Comment on above: Order Comment: Speci men Type: BLOOD SPECIMENOrdering Facility: [facility] Address: [address] [address] Performed By: #### 5 8410-2 ####[facility]ORATORYCLIA [id number] [address] WBC (Bld) [#/Vol] 6.86 10*3/uL Normal 3.70-11.00 [facility] Comment on above: Order Comment: Speci men Type: BLOOD SPECIMENOrdering Facility: [facility] Address: [address] [place] [address] Performed By: #### 5 8410-2 ####[facility] LABORATORYCLIA [id number] [address] NUTRITIONon 06-23-2022 NUTRITION HNO ID: [id number] Author: Parul Mcallister RD Service: Nutrition Therapy Author Type: Registered Dietitian Type: Nutrition Filed: 06/23/2022 2:28 PM Note Text: NUTRITION THERAPY INITIAL ASSESSMENT SERVICE DATE: 06/23/2022 SERVICE TIME: 11:09 AM Nutrition Assessment: Recommended Malnutrition Diagnosis: No Malnutrition Identified Nutrition Diagnosis: Problem: Suboptimal protein/energy intake Related to: Inability to consume sufficient nutrients As evidenced by: Patient/family self-report;Intake records Estimated kilocalorie needs: 6377-2811 Calorie Calculation Method: 25-30 kcals/kg Estimated protein [...] 2022 TIME: 11:09 AM Normal [facility] XR CHEST 2V FRONTAL/LATon XR CHEST [...] sites of pneumonia. Small bilateral pleural effusions. Patient Admitting Clerk: PSCYoan Transcribe Date/Time: Jun 24 2022 6:34A Dictated by : DI MINER MD This examination was interpreted and the report reviewed and electronically signed by: DI MINER MD on Jun 24 2022 6:36AM EST [id number] Normal [facility] aPTT PPPon 06-23-2022 aPTT Coag (PPP) [Time] 46.7 s High 23.0-32.4 [facility] Comment on above: Order Comment: Specrobson mason Type: BLOOD SPECIMENOrdering Facility: [facility] Address: [address] [place] [address] Performed By: #### 1 4979-9 ####[facility] LABORATORYCLIA [id number] [address] aPTT Coag (PPP) [Time] 53.8 s High 23.0-32.4 [facility] Comment on above: Order Comment: Samiri isabella Type: BLOOD SPECIMENOrdering Facility: [facility] Address: [address] [address] Performed By: #### 1 4979-9 ####[facility] LABORATORYCLIA [id number] [address] aPTT Coag (PPP) [Time] 114.5 s High 23.0-32.4 [facility] Comment on above: Order Comment: Rhina mason Type: BLOOD SPECIMEN [facility] Address: [address] [place], [place] [address] Performed By: #### T SCR #### [facility] CLIA [id number] [address] CBC W Auto Differential pane l (Bld)on 06-22-2022 Basophils (Bld) [#/Vol] 0.03 10*3/uL Normal <0.11 [facility] Comment on above: Order Comment: Speci men Type: BLOOD SPECIMENOrdering Facility: [facility] Address: [address] [place] [address] Result Comment: Diff erential confirmed by visual scan of peripheral blood smear slide Performed By: #### 5 7021-8 ####[facility] LABORATORYCLIA [id number] [address] Basophils/100 WBC (Bld) 0.5 % Normal [facility] Comment on above: Order Comment: Speci men Type: BLOOD SPECIMENOrdering Facility: [facility] Address: [address] [place] [address] Performed By: #### 5 7021-8 ####[facility] LABORATORYCLIA [id number] [address] Differential cell count method Nom (Bld) Auto Normal [facility] Comment on above: Order Comment: Speci men Type: BLOOD SPECIMENOrdering Facility: [facility] Address: [address] [address] Performed By: #### 5 7021-8 ####[facility] LABORATORYCLIA [id number] [address] STATES OF [facility] Eosinophils (Bld) [#/Vol] 10*3/uL Normal <0.46 [facility] Comment on above: Order Comment: Speci men Type: BLOOD SPECIMENOrdering Facility: [facility] Address: [address] [address] Performed By: #### 5 7021-8 ####[facility] LABORATORYCLIA [id number] [address] Eosinophils/100 WBC (Bld) 0.0 % Normal [facility] Comment on above: Order Comment: Speci men Type: BLOOD SPECIMENOrdering Facility: [facility] Address: [address] [place] [address] Performed By: #### 5 7021-8 ####[facility] LABORATORYCLIA [id number] [address] [place] Erythrocyte distribution width (RBC) [Ratio] 16.2 % High 11.5-15.0 [facility] Comment on above: Order Comment: Speci men Type: BLOOD SPECIMENOrdering Facility: [facility] Address: [address] [place] [address] Performed By: #### 5 7021-8 ####[facility] LABORATORYCLIA [id number] [address] [place] Hematocrit (Bld) [Volume fraction] 25.1 % Low 36.0-46.0 [facility] Comment on above: Order Comment: Speci men Type: BLOOD SPECIMENOrdering Facility: [facility] Address: [address] [place] [address] Performed By: #### 5 7021-8 ####[facility] LABORATORYCLIA [id number] [address] [place] Hemoglobin (Bld) [Mass/Vol] 8.4 g/dL Low 11.5-15.5 [facility] Comment on above: Order Comment: Speci men Type: BLOOD SPECIMENOrdering Facility: [facility] Address: [address] [place] [address] Performed By: #### 5 7021-8 ####[facility] LABORATORYCLIA [id number] [address] [place] Immature granulocytes (Bld) [#/Vol] 0.60 10*3/uL High <0.10 [facility] Comment on above: Order Comment: Speci men Type: BLOOD SPECIMENOrdering Facility: [facility] Address: [address] [place] [address] Performed By: #### 5 7021-8 ####[facility] LABORATORYCLIA [id number] [address] Immature granulocytes/100 WBC (Bld) 10.3 % Normal [facility] Comment on above: Order Comment: Speci men Type: BLOOD SPECIMENOrdering Facility: [facility] Address: [address] [place] [address] Performed By: #### 5 7021-8 ####[facility] LABORATORYCLIA [id number] [address] Lymphocytes (Bld) [#/Vol] 1.38 10*3/uL Normal 1.00-4.00 [facility] Comment on above: Order Comment: Speci men Type: BLOOD SPECIMENOrdering Facility: [facility] Address: [address] [place] [address] Performed By: #### 5 7021-8 ####[facility] LABORATORYCLIA [id number] [address] Lymphocytes/100 WBC (Bld) 23.7 % Normal [facility] Comment on above: Order Comment: Speci men Type: BLOOD SPECIMENOrdering Facility: [facility] Address: [address] [place] [address] Performed By: #### 5 7021-8 ####[facility] LABORATORYCLIA [id number] [address] STATES [facility] MCH (RBC) [Entitic mass] 31.2 pg Normal 26.0-34.0 [facility] Comment on above: Order Comment: Speci men Type: BLOOD SPECIMENOrdering Facility: [facility] Address: [address] [place] [address] Performed By: #### 5 7021-8 ####[facility] LABORATORYCLIA [id number] [address] MCHC (RBC) [Mass/Vol] 33.5 g/dL Normal 30.5-36.0 [facility] Comment on above: Order Comment: Speci men Type: BLOOD SPECIMENOrdering Facility: [facility] Address: [address] [address] Performed By: #### 5 7021-8 ####[facility] LABORATORYCLIA [id number] [address] [place] MCV (RBC) [Entitic vol] 93.3 fL Normal 80.0-100.0 [facility] Comment on above: Order Comment: Speci men Type: BLOOD SPECIMENOrdering Facility: [facility] Address: [address] [place] [address] Performed By: #### 5 7021-8 ####[facility] LABORATORYCLIA [id number] [address] [place] Monocytes (Bld) [#/Vol] 0.50 10*3/uL Normal <0.87 [facility] Comment on above: Order Comment: Speci men Type: BLOOD SPECIMENOrdering Facility: [facility] Address: [address] [place] [address] Performed By: #### 5 7021-8 ####[facility] LABORATORYCLIA [id number] [address] [place] Monocytes/100 WBC (Bld) 8.6 % Normal A [facility] Comment on above: Order Comment: Speci men Type: BLOOD SPECIMENOrdering Facility: [facility] Address: [address] [place] [address] Performed By: #### 5 7021-8 ####[facility]ATORYCLIA [id number] [address] [place] Neutrophils (Bld) [#/Vol] 3.31 10*3/uL Normal 1.45-7.50 [facility] Comment on above: Order Comment: Speci men Type: BLOOD SPECIMENOrdering Facility: [facility] Address: [address] [place] [address] Performed By: #### 5 7021-8 ####[facility] LABORATORYCLIA [id number] [address] [place] Neutrophils/100 WBC (Bld) 56.9 % Normal [facility] Comment on above: Order Comment: Speci men Type: BLOOD SPECIMENOrdering Facility: [facility] Address: [address] [place] [address] Performed By: #### 5 7021-8 ####[facility] LABORATORYCLIA [id number] [place] [address] [place] Nucleated RBC (Bld) [#/Vol] 0.10 10*3/uL High <0.01 [facility] Comment on above: Order Comment: Speci men Type: BLOOD SPECIMENOrdering Facility: [facility] Address: [address] [place] [address] Performed By: #### 5 7021-8 ####[facility] LABORATORYCLIA [id number] [address] [place] Nucleated RBC/100 WBC (Bld) [Ratio] 1.7 /100 WBC Normal [facility] Comment on above: Order Comment: Speci men Type: BLOOD SPECIMENOrdering Facility: [facility] Address: [address] [place] [address] Performed By: #### 5 7021-8 ####[facility] LABORATORYCLIA [id number] [place] [address] [place] Platelet mean volume (Bld) [Entitic vol] 9.7 fL Normal 9.0-12.7 [facility] Comment on above: Order Comment: Speci men Type: BLOOD SPECIMENOrdering Facility: [facility] Address: [address] [place] [address] Performed By: #### 5 7021-8 ####[facility] LABORATORYCLIA [id number] [place] [address] [place] Platelets (Bld) [#/Vol] 209 10*3/uL Normal 150-400 [facility] Comment on above: Order Comment: Speci men Type: BLOOD SPECIMENOrdering Facility: [facility] Address: [address] [place] [address] Performed By: #### 5 7021-8 ####[facility] LABORATORYCLIA [id number] [address] OF [facility] RBC (Bld) [#/Vol] 2.69 10*6/uL Low 3.90-5.20 [facility] Comment on above: Order Comment: Speci men Type: BLOOD SPECIMENOrdering Facility: [facility] Address: [address] [place] [address] Performed By: #### 5 7021-8 ####[facility] LABORATORYCLIA [id number] [address] WBC (Bld) [#/Vol] 5.82 10*3/uL Normal 3.70-11.00 [facility] Comment on above: Order Comment: Speci men Type: BLOOD SPECIMENOrdering Facility: [facility] Address: [address] [place] [address] Performed By: #### 5 7021-8 ####[facility] LABORATORYIA [id number] [address] CONSULT PROGon 06-22-2022 CONSULT PROG HNO ID: [id number] Author: Eliza Martin APRN.DESKTOP SUPPORT ASSOCIATE Service: Gastroenterology Author Type: Nurse Specialist Type: [...] (more content not included)... Normal [facility] Comprehensive metabolic 2000 panelon 06-22-2022 Albumin [Mass/Vol] 2.4 g/dL Low 3.9-4.9 [facility] Comment on above: Order Comment: Speci men Type: BLOOD SPECIMENOrdering Facility: [facility] Address: [address] [place] [address] Performed By: #### 2 4323-8 ####[facility] LABORATORYCLIA [id number] [address] STATES OF [facility] ALP [Catalytic activity/Vol] 129 U/L High 34-123 [facility] Comment on above: Order Comment: Speci men Type: BLOOD SPECIMENOrdering Facility: [facility] Address: [address] [place] [address] Performed By: #### 2 4323-8 ####[facility] LABORATORYCLIA [id number] [address] STATES OF [facility] ALT With P-5'-P [Catalytic activity/Vol] 21 U/L Normal 7-38 [facility] Comment on above: Order Comment: Speci men Type: BLOOD SPECIMENOrdering Facility: [facility] Address: [address] [place] [address] Performed By: #### 2 4323-8 ####[facility] LABORATORYCLIA [id number] [address] STATES [facility] Anion gap [Moles/Vol] 10 mmol/L Normal 9-18 [facility] Comment on above: Order Comment: Speci men Type: BLOOD SPECIMENOrdering Facility: [facility] Address: [address] [place] [address] Performed By: #### 2 4323-8 ####[facility] LABORATORYCLIA [id number] [address] [place] AST With P-5'-P [Catalytic activity/Vol] 19 U/L Normal 13-35 [facility] Comment on above: Order Comment: Speci men Type: BLOOD SPECIMENOrdering Facility: [facility] Address: [address] [place] [address] Performed By: #### 2 4323-8 ####[facility] LABORATORYCLIA [id number] [place] [address] [place] Bilirubin [Mass/Vol] 0.6 mg/dL Normal 0.2-1.3 [facility] Comment on above: Order Comment: Speci men Type: BLOOD SPECIMENOrdering Facility: [facility] Address: [address] [place] [address] Performed By: #### 2 4323-8 ####[facility] LABORATORYCLIA [id number] [place] [address] [place] Calcium [Mass/Vol] 8.6 mg/dL Normal 8.5-10.2 [facility] Comment on above: Order Comment: Speci men Type: BLOOD SPECIMENOrdering Facility: [facility] Address: [address] [place] [address] Performed By: #### 2 4323-8 ####[facility] LABORATORYCLIA [id number] [place] [address] [place] Chloride [Moles/Vol] 105 mmol/L Normal 97-105 [facility] Comment on above: Order Comment: Speci men Type: BLOOD SPECIMENOrdering Facility: [facility] Address: [address] [place] [address] Performed By: #### 2 4323-8 ####[facility]ORATORYCLIA [id number] [place] [address] [place] CO2 [Moles/Vol] 21 mmol/L Low 22-30 [facility] Comment on above: Order Comment: Speci men Type: BLOOD SPECIMENOrdering Facility: [facility] Address: [address] [place] [address] Performed By: #### 2 4323-8 ####[facility] LABORATORYCLIA [id number] [place] [address] [place] Creatinine [Mass/Vol] 0.88 mg/dL Normal 0.58-0.96 [facility] Comment on above: Order Comment: Rhina mason Type: BLOOD SPECIMENOrdering Facility: [facility] Address: [address] [address] Performed By: #### 2 4323-8 ####[facility] LABORATORYCLIA [id number] [address] ESTIMATED GLOMERULAR FILTRATION RATE 66 mL/min/1.73m??? Normal >=60 [facility] Comment on above: Order Comment: Rhina mason Type: BLOOD SPECIMENOrdering Facility: [facility] Address: [address] [place] [address] Result Comment: Isa mated Glomerular Filtration Rate [...] actual GFR. Performed By: #### 2 4323-8 ####[facility] LABORATORYCLIA [id number] [address] OF [facility] Glucose [Mass/Vol] 95 mg/dL Normal 74-99 [facility] Comment on above: Order Comment: Rhina mason Type: BLOOD SPECIMENOrdering Facility: [facility] Address: [address] [place] [address] Result Comment: The [place] [employer] (ADA) provides guidance for cutoff [...] Standards of Medical Care in Diabetes 2016, [place] [employer]. Diabetes Care. 2016.39(Suppl 1). Performed By: #### 2 4323-8 ####[facility] LABORATORYCLIA [id number] [address] [place] Potassium [Moles/Vol] 4.7 mmol/L Normal 3.7-5.1 [facility] Comment on above: Order Comment: Speci men Type: BLOOD SPECIMENOrdering Facility: [facility] Address: [address] [place] [address] Performed By: #### 2 4323-8 ####[facility] LABORATORYCLIA [id number] [place] [address] [place] Protein [Mass/Vol] 5.3 g/dL Low 6.3-8.0 [facility] Comment on above: Order Comment: Speci men Type: BLOOD SPECIMENOrdering Facility: [facility] Address: [address] [place] [address] Performed By: #### 2 4323-8 ####[facility] LABORATORYCLIA [id number] [place] [address] [place] Sodium [Moles/Vol] 136 mmol/L Normal 136-144 [facility] Comment on above: Order Comment: Speci men Type: BLOOD SPECIMENOrdering Facility: [facility] Address: [address] [place] [address] Performed By: #### 2 4323-8 ####[facility] LABORATORYCLIA [id number] [place] [address] [place] Urea nitrogen [Mass/Vol] 7 mg/dL Normal 7-21 [facility] Comment on above: Order Comment: Speci men Type: BLOOD SPECIMENOrdering Facility: [facility] Address: [address] [place] [address] Performed By: #### 2 4323-8 ####[facility] LABORATORYCLIA [id number] [place] [address] [place] H. pylori IgG IA Qlon 2021 H. PYLORI IGG, QUAL Negative Normal Negative [facility] Comment on above: Order Comment: Speci men Type: BLOOD SPECIMENOrdering Facility: [facility] Address: [address] [address] Result Comment: Shakeel ot exclude H. pylori infection if the specimen collected 3-4 weeks after onset of symptoms. Performed By: #### 1 7859-0 ####[facility] LABCLIA [id number] [facility] [id number] [place] PT panel Coag (PPP)on 2021 INR Coag (PPP) [Relative time] {INR} Low 0.9-1.3 [facility] Comment on above: Order Comment: Rhina mason Type: BLOOD SPECIMEN [facility] Address: [address] [address] Result Comment: Mayra min K Antagonist (VKA) Therapeutic Range: INR 2 to 3 (Target INR of 2.5) Note: For patients treated with VKA drugs, such as warfarin, the [place] [employer] 2012 Guideline recommends [...] Chest 2012, 141:7S-47S Daren RA, et al. [facility] 2017, 70: 252-289 Performed By: #### T SCR #### [facility] CLIA [id number] [address] [place] PT Coag (PPP) [Time] 9.9 s Normal 9.7-13.0 [facility] Comment on above: Order Comment: Rhina mason Type: BLOOD SPECIMEN [facility] Address: [address] [address] Performed By: #### T SCR #### [facility] CLIA [id number] [address] OF [facility] THERAPY NTon 06-22-2022 THERAPY NT HNO ID: [id number] Author: Shannan Segovia OTR/L Service: Occupational Therapy Author Type: Occupational Therapist Type: Therapy (PT/OT/Speech/Resp) Filed: 06/22/2022 11:27 AM Note Text: Occupational Therapy Evaluation SERVICE DATE: 06/22/2022 SERVICE TIME: 1037 to 1105 ROOM: [place] [address] Recommended Discharge Disposition: Subacute/SNF Recommended Discharge Disposition [...] time Occupational Factors Life 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 Normal [facility] US ARTERIAL PVR LOWERon 12-0 US ARTERIAL PVR LOWER * * *Final Report* * * DATE OF EXAM: Jun 22 2022 7:43AM A2U 1107 - US ARTERIAL PVR LOWER / PROCEDURE REASON: Arterial embolism * * * * Physician Interpretation * * * * Non-Invasive Vascular Laboratory [facility] Lower Extremity Arterial Physiology Study Bilateral/Complete Date of service/time: 06/22/2022 7:12:00 AM [facility] Name: [facility] Date of : [...] all veins 06/16/22. Dopplers study was done. VOCATIONAL REHAB CONSULTANT - Biphasic EP TECHNOLOGIST - Multiphasic - possible stenosis DP - Monophasic Bigelow - Biphasic. Technologist: Azar Holcomb Gosia Ordering physician: DWAYNE ZAIDI Interpreting physician: Supriya Ponce MD Final (Updated) RP Patient Admitting Clerk: IRENE Transcribe Date/Time: Jun 22 2022 7:12A Dictated by : SUPRIYA PONCE MD This examination was interpreted and the report reviewed and electronically signed by: SUPRIYA PONCE MD on Jun 24 2022 1:27PM EST [id number] Normal [facility] aPTT PPPon 06-22-2022 aPTT Coag (PPP) [Time] 43.0 s High 23.0-32.4 [facility] Comment on above: Order Comment: Speci men Type: BLOOD SPECIMENOrdering Facility: [facility] Address: [address] [place] [address] Performed By: #### 1 4979-9 ####[facility] LABORATORYCLIA [id number] [address] aPTT Coag (PPP) [Time] 25.6 s Normal 23.0-32.4 [facility] Comment on above: Order Comment: Speci men Type: BLOOD SPECIMEN [facility] Address: [address] [place] [address] Performed By: #### T SCR #### [facility] CLIA [id number] [address] ANES POSTPROC EVALon 022 ANES POSTPROC EVAL HNO ID: [id number] Author: Olu Vasquez MD Service: Anesthesiology Author Type: Physician Type: Anesthesia Postprocedure Evaluation Filed: 06/21/2022 3:20 PM Note Text: POST ANESTHESIA EVALUATION NOTE : 1940 Procedure Summary Date: 06/21/22 Room / Location: [facility] Anesthesia Start: 1134 Anesthesia Stop: [...] June 21, 2022 TIME: 3:19 PM CSN: [id number] Normal [facility] ANES PRE-OPon 06-21-2022 ANES PRE-OP HNO ID: [id number] Author: Olu Vasquez MD Service: Anesthesiology Author Type: Physician Type: Anesthesia Preprocedure Evaluation Filed: 06/21/2022 11:32 AM Note Text: ANESTHESIOLOGY DAY OF SURGERY NOTE : 1940 Procedure Information Date/Time: 06/21/22 1130 Scheduled providers: Sim Elizabeth MD Procedure: EGD DIAGNOSTIC Location: [facility] Estimated body mass index is [...] pneumonia (+) COPD (chronic obstructive pulmonary disease) ([facility]) I - PHYSICAL EVALUATION AIRWAY Patient intubated: [...] (more content not included)... Normal [facility] CONSULT PROGon 06-21-2022 CONSULT PROG HNO ID: [id number] Author: Fidel Carmen APRN.CLOTH TRIMMER HAND Service: Wound/Ostomy Author Type: Nurse Practitioner Type: Consult Progress Note Filed: 06/21/2022 1:41 PM Note Text: WOUND CARE SERVICE CONSULT VOCATIONAL EDUCATION PROFESSIONAL NOTE SERVICE DATE: 06/21/2022 SERVICE TIME: 941 TIME SPENT (minutes): 30 REASON FOR CONSULT: MAD buttocks, atypical wound Right middle finger. CHIEF COMPLAINT: Right middle finger Subjective HISTORY OF PRESENT ILLNESS: Ms. Jose Alberto Castillo is a 81 year old female who is seen today with Delia Bruno, Wound/quoter, and presented to hospital with complaints of [...] 06/21/2022 9:57 AM Wound Image Site Assessment [place];Red (small open area noted) Allie-Wound Assessment [place];Intact Drainage Amount None Odor None Treatments Cleansed;Protective Barrier Ointment Dressing Foam- Adhesive Dressing Changed Changed Dressing Status Clean;Dry;Intact Active Orders Date Order Priority Status Authorizing Provider 06/21/22 1248 DRESSING CARE (SPECIFY) ([place]) Routine Active Fidel Carmen APRN.CLOTH TRIMMER HAND - Specify:: Apply allevyn foam to coccyx, peel down every shift to assess skin and to apply zinc oxide, change every 3 days or if soiled. 06/21/22 1248 zinc oxide 20 % Active Fidel Carmen APRN.CLOTH TRIMMER HAND Wound 06/21/22 0948 Atypical Wound Finger (Comment which one) Right (Active) Assessments 06/21/2022 9:48 AM Wound Image Site Assessment [place];White (shiney) Allie-Wound Assessment Intact Shape irregular Drainage Description Sanguineous (intermittent, per pt.) Drainage Amount None Odor None Treatments Cleansed Dressing Xeroform;Gauze Dr (more content not included)... Normal [facility] Hgb Bld-mCncon 06-21-2022 Hemoglobin (Bld) [Mass/Vol] 6.9 g/dL Low 11.5-15.5 [facility] Comment on above: Order Comment: Speci men Type: BLOOD SPECIMENOrdering Facility: [facility] Address: [address] [place], [place] [address] Performed By: #### 3 2355-0 #### [facility] CLIA [id number] [address] [place] [address] [place] OPERATIVE NOon 06-21-2022 OPERATIVE NO HNO ID: [id number] Author: Sim Elizabeth MD Service: Gastroenterology Author Type: Physician Type: Operative Report Filed: 06/21/2022 12:01 PM Note Text: OPERATIVE/PROCEDURE REPORT LOG ID: [id number] Surgery/Procedure Date: 06/21/2022 Incision/Procedure Start Time: 11:44 AM Incision Close/Procedure End Time: 11:49 AM Surgeon(s)/Proceduralis t(s) and Cloth Washer Back Tender(s): Surgeon(s) and Role: * Sim Elizabeth MD [...] 21, 2022 TIME: 11:53 AM PAGER/CONTACT #: [phone] Normal [facility] THERAPY NTon 06-21-2022 THERAPY NT HNO ID: [id number] Author: Miranda Burroughs PT Service: Physical Therapy Author Type: Physical Therapist Type: Therapy (PT/OT/Speech/Resp) Filed: 06/21/2022 10:12 AM Note Text: Physical Therapy Evaluation SERVICE DATE: 06/21/2022 SERVICE TIME: 08 to 0855 ROOM: [id number] Recommended Discharge Disposition: Subacute/SNF Recommended Discharge Disposition [...] Available: PRN (someone can drive her to appts; someone drops off food as they are [...] while, someone has to take her to appts, ambulates without AD, takes care of home [...] gait and mobility-other Interventions Provided: Evaluation;Therapeutic Activity (02064) $ Evaluation-Moderate (20013) Billed Units: 1 unit Therapeutic Activity (79691) Treatment Minutes: 8 $ Therapeutic Activity (79884) Billed Units: 1 unit Educated pt on [...] (more content not included)... Normal [facility] TYPE + SCREENon 06-21-2022 ABO AB Normal [facility] Comment on above: Order Comment: Speci men Type: BLOOD SPECIMEN [facility] Address: [address] [place] [phone] Performed By: #### T SCR #### [facility] CLIA [id number] 1 [place] [address] [place] HISTORICAL AB SCR STATUS Negative Normal [facility] Comment on above: Order Comment: Speci men Type: BLOOD SPECIMEN [facility] Address: [address] [place] [address] Performed By: #### T SCR #### [facility] CLIA [id number] [address] Rh Nom (Bld) Positive Normal [facility] Comment on above: Order Comment: Speci men Type: BLOOD SPECIMEN [facility] Address: [address] [place] [address] Performed By: #### T SCR #### [facility] CLIA [id number] [address] TYPE AND SCREEN EXPIRATION 06/24/2022 23:59 Normal [facility] Comment on above: Order Comment: Speci men Type: BLOOD SPECIMEN [facility] Address: [address] [place] [address] Performed By: #### T SCR #### [facility] CLIA [id number] [address] ALLIED HEALTHon 06-20-2022 ALLIED HEALTH HNO ID: [id number] Author: RT Tamica(R) Service: Radiology Author Type: [...] PERIPHERAL IV DATA: Inpatient - refer to LDA documentation RADIOLOGY DEPARTMENT: CT; Exam(s) Completed: Abdomen/Pelvis SIGNATURE: RT Tamica(R) PATIENT NAME: Mel Castillo DATE: June 20, 2022 TIME: 3:15 PM Normal [facility] Basic metabolic 2000 panelon 06-20-2022 Anion gap [Moles/Vol] 8 mmol/L Low 9-18 [facility] Comment on above: Order Comment: Speci men Type: BLOOD SPECIMENOrdering Facility: [facility] Address: [address] [place] [address] Performed By: #### 2 4321-2 ####[facility]ORYCLIA [id number] [place] [address] [place] Calcium [Mass/Vol] 8.5 mg/dL Normal 8.5-10.2 [facility] Comment on above: Order Comment: Speci men Type: BLOOD SPECIMENOrdering Facility: [facility] Address: [address] [place] [address] Performed By: #### 2 4321-2 ####[facility]ORYCLIA [id number] [place] [address] [place] Chloride [Moles/Vol] 106 mmol/L High 97-105 [facility] Comment on above: Order Comment: Speci men Type: BLOOD SPECIMENOrdering Facility: [facility] Address: [address] [place] [address] Performed By: #### 2 4321-2 ####[facility]ORYCLIA [id number] [address] [place] CO2 [Moles/Vol] 22 mmol/L Normal 22-30 [facility] Comment on above: Order Comment: Speci men Type: BLOOD SPECIMENOrdering Facility: [facility] Address: [address] [place] [address] Performed By: #### 2 4321-2 ####[facility]ORYCLIA [id number] [address] STATES OF [facility] Creatinine [Mass/Vol] 0.84 mg/dL Normal 0.58-0.96 [facility] Comment on above: Order Comment: Speci men Type: BLOOD SPECIMENOrdering Facility: [facility] Address: [address] [place] [address] Performed By: #### 2 4321-2 ####[facility]ORYCLIA [id number] [address] ESTIMATED GLOMERULAR FILTRATION RATE 69 mL/min/1.73m??? Normal >=60 [facility] Comment on above: Order Comment: Speci men Type: BLOOD SPECIMENOrdering Facility: [facility] Address: [address] [place] [address] Result Comment: Isa mated Glomerular Filtration Rate [...] actual GFR. Performed By: #### 2 4321-2 ####[facility]ORYCLIA [id number] [address] [place] Glucose [Mass/Vol] 92 mg/dL Normal 74-99 [facility] Comment on above: Order Comment: Speci men Type: BLOOD SPECIMENOrdering Facility: [facility] Address: [address] [place] [address] Result Comment: The [place] Diabetes Association (ADA) provides guidance for cutoff [...] Standards of Medical Care in Diabetes 2016, [place] [employer]. Diabetes Care. 2016.39(Suppl 1). Performed By: #### 2 4321-2 ####[facility]ORYCLIA [id number] [place] [address] [place] Potassium [Moles/Vol] 4.7 mmol/L Normal 3.7-5.1 [facility] Comment on above: Order Comment: Samiri men Type: BLOOD SPECIMENOrdering Facility: [facility] Address: [address] [place] [address] Performed By: #### 2 4321-2 ####[facility]ORYCLIA [id number] [place] [address] [place] Sodium [Moles/Vol] 136 mmol/L Normal 136-144 [facility] Comment on above: Order Comment: Speci men Type: BLOOD SPECIMENOrdering Facility: [facility] Address: [address] [place] [address] Performed By: #### 2 4321-2 ####[facility]ORYCLIA [id number] [place] [address] [place] Urea nitrogen [Mass/Vol] 16 mg/dL Normal 7-21 [facility] Comment on above: Order Comment: Speci men Type: BLOOD SPECIMENOrdering Facility: [facility] Address: [address] [place] [address] Performed By: #### 2 4321-2 ####[facility]ORYCLIA [id number] [address] CBC panel Auto (Bld)on 06-20 Erythrocyte distribution width (RBC) [Ratio] 15.9 % High 11.5-15.0 [facility] Comment on above: Order Comment: Speci men Type: BLOOD SPECIMENOrdering Facility: [facility] Address: [address] [place] [address] Performed By: #### 3 2355-0 #### [facility] CLIA [id number] [address] Hematocrit (Bld) [Volume fraction] 23.9 % Low 36.0-46.0 [facility] Comment on above: Order Comment: Speci men Type: BLOOD SPECIMENOrdering Facility: [facility] Address: [address] [place] [address] Performed By: #### 3 2355-0 #### [facility] CLIA [id number] [address] Hemoglobin (Bld) [Mass/Vol] 7.8 g/dL Low 11.5-15.5 [facility] Comment on above: Order Comment: Speci men Type: BLOOD SPECIMENOrdering Facility: [facility] Address: [address] [place] [address] Performed By: #### 3 2355-0 #### [facility] CLIA [id number] [address] MCH (RBC) [Entitic mass] 30.7 pg Normal 26.0-34.0 [facility] Comment on above: Order Comment: Speci men Type: BLOOD SPECIMENOrdering Facility: [facility] Address: [address] [place] [address] Performed By: #### 3 2355-0 #### [facility] CLIA [id number] [address] MCHC (RBC) [Mass/Vol] 32.6 g/dL Normal 30.5-36.0 [facility] Comment on above: Order Comment: Speci men Type: BLOOD SPECIMENOrdering Facility: [facility] Address: [address] [address] Performed By: #### 3 2355-0 #### [facility] CLIA [id number] [address] MCV (RBC) [Entitic vol] 94.1 fL Normal 80.0-100.0 [facility] Comment on above: Order Comment: Speci men Type: BLOOD SPECIMENOrdering Facility: [facility] Address: [address] [address] Performed By: #### 3 2355-0 #### [facility] CLIA [id number] [address] OF [facility] Nucleated RBC (Bld) [#/Vol] 0.09 10*3/uL High <0.01 [facility] Comment on above: Order Comment: Speci men Type: BLOOD SPECIMENOrdering Facility: [facility] Address: [address] [address] Performed By: #### 3 2355-0 #### [facility] CLIA [id number] [address] Platelet mean volume (Bld) [Entitic vol] 9.8 fL Normal 9.0-12.7 [facility] Comment on above: Order Comment: Speci men Type: BLOOD SPECIMENOrdering Facility: [facility] Address: [address] [address] Performed By: #### 3 2355-0 #### [facility] CLIA [id number] [address] Platelets (Bld) [#/Vol] 233 10*3/uL Normal 150-400 [facility] Comment on above: Order Comment: Speci men Type: BLOOD SPECIMENOrdering Facility: [facility] Address: [address] [address] Performed By: #### 3 2355-0 #### [facility] CLIA [id number] [address] [place] RBC (Bld) [#/Vol] 2.54 10*6/uL Low 3.90-5.20 [facility] Comment on above: Order Comment: Speci men Type: BLOOD SPECIMENOrdering Facility: [facility] Address: [address] [place] [address] Performed By: #### 3 2355-0 #### [facility] CLIA [id number] [address] WBC (Bld) [#/Vol] 9.90 10*3/uL Normal 3.70-11.00 [facility] Comment on above: Order Comment: Speci men Type: BLOOD SPECIMENOrdering Facility: [facility] Address: [address] [place] [address] Performed By: #### 3 2355-0 #### [facility] CLIA [id number] [address] CONSULTon 06-20-2022 CONSULT HNO ID: [id number] Author: Christine Edouard MD Service: ? Author Type: Physician Type: Consults Filed: 06/20/2022 8:25 PM Note Text: GASTROENTEROLOGY CONSULT HPI: Mel Castillo is a 81 year old [...] (more content not included)... Normal [facility] CT ABD/PEL W IVCONon 022 CT ABD/PEL W IVCON * * *Final Report* * * DATE OF EXAM: Jun 20 2022 2:57PM [facility] 0530 - CT ABD/PEL W IVCON / [...] bilateral pleural effusions, larger on the right. Front Of House Manager (topogram) images: No additional findings. IMPRESSION: Acute sigmoid diverticulitis. No evidence of perforation or diverticular abscess. Consolidation and volume loss with bronchial wall thickening in both lower lobes and right middle lobe. Small bilateral pleural effusions, larger on the right. Diffuse subcutaneous edema of the left flank extending into the thigh. Bilateral renal cortical scarring and small cysts. Atherosclerotic arterial and aortic calcifications. Patient Admitting Clerk: PSCB Transcribe Date/Time: Jun 20 2022 3:18P Dictated by : DI MAYES MD This examination was interpreted and the report reviewed and electronically signed by: DI MAYES MD on Jun 20 2022 3:24PM EST [id number] Normal [facility] Hgb Bld-mCncon 06-20-2022 Hemoglobin (Bld) [Mass/Vol] 7.0 g/dL Low 11.5-15.5 [facility] Comment on above: Order Comment: Speci men Type: BLOOD SPECIMEN [facility] Address: [address] [place] [address] Performed By: #### T SCR #### [facility] CLIA [id number] [address] [place] [address] ALLIED HEALTHon 06-19-2022 ALLIED HEALTH HNO ID: [id number] Author: Parul Ryan RN Service: Infection Prevention Author Type: ? Type: Allied Health Filed: 06/19/2022 5:49 PM Note Text: INFECTION PREVENTION NOTE Admission Date: 06/16/2022 Patient meets ?COVID Resolved? criteria and isolation has been discontinued as per CDC guidance. SIGNATURE: Parul Ryan RN PATIENT NAME: Mel Castillo DATE: June 19, 2022 TIME: 5:49 PM PAGER/CONTACT #: Infection Prevention, [id number] Infection Prevention after hours/weekend pager: [phone] Normal [facility] Basic metabolic 2000 panelon 06-19-2022 Anion gap [Moles/Vol] 5 mmol/L Low 9-18 [facility] Comment on above: Order Comment: Speci men Type: BLOOD SPECIMENOrdering Facility: [facility] Address: [address] [place] [address] Performed By: #### 3 2355-0 #### [facility] CLIA [id number] [address] STATES OF [facility] Calcium [Mass/Vol] 8.1 mg/dL Low 8.5-10.2 [facility] Comment on above: Order Comment: Speci men Type: BLOOD SPECIMENOrdering Facility: [facility] Address: [address] [place] [address] Performed By: #### 3 2355-0 #### [facility] CLIA [id number] [address] [place] Chloride [Moles/Vol] 105 mmol/L Normal 97-105 [facility] Comment on above: Order Comment: Speci men Type: BLOOD SPECIMENOrdering Facility: [facility] Address: [address] [place] [address] Performed By: #### 3 2355-0 #### [facility] CLIA [id number] [address] CO2 [Moles/Vol] 23 mmol/L Normal 22-30 [facility] Comment on above: Order Comment: Speci men Type: BLOOD SPECIMENOrdering Facility: [facility] Address: [address] [place] [address] Performed By: #### 3 2355-0 #### [facility] CLIA [id number] [address] OF [facility] Creatinine [Mass/Vol] 0.94 mg/dL Normal 0.58-0.96 [facility] Comment on above: Order Comment: Speci men Type: BLOOD SPECIMENOrdering Facility: [facility] Address: [address] [place] [address] Performed By: #### 3 2355-0 #### [facility] CLIA [id number] [address] [place] ESTIMATED GLOMERULAR FILTRATION RATE 61 mL/min/1.73m??? Normal >=60 [facility] Comment on above: Order Comment: Speci men Type: BLOOD SPECIMENOrdering Facility: [facility] Address: [address] [place] [address] Result Comment: Isa mated Glomerular Filtration Rate (eGFR) is calculated using the 202 CKD-EPI creatinine equation. This equation utilizes serum creatinine, sex, and age as parameters. The creatinine assay has traceable calibration to isotope dilution-mass spectrometry. Refer to KDIGO guidelines for clinical interpretation. In patients with unstable renal function, e.g. those with acute kidney injury, the eGFR may not accurately reflect actual GFR. Performed By: #### 3 2355-0 #### [facility] CLIA [id number] 1 [place] [address] [place] Glucose [Mass/Vol] 115 mg/dL High 74-99 [facility] Comment on above: Order Comment: Speci men Type: BLOOD SPECIMENOrdering Facility: [facility] Address: [address] [place] [address] Result Comment: The [place] Diabetes Association (ADA) provides guidance for cutoff [...] Standards of Medical Care in Diabetes 2016, [place] [employer]. Diabetes Care. 2016.39(Suppl 1). Performed By: #### 3 2355-0 #### [facility] CLIA [id number] 1 [place] [address] [place] Potassium [Moles/Vol] 4.4 mmol/L Normal 3.7-5.1 [facility] Comment on above: Order Comment: Speci men Type: BLOOD SPECIMENOrdering Facility: [facility] Address: [address] [address] Performed By: #### 3 2355-0 #### [facility] CLIA [id number] 1 [place] [address] [place] Sodium [Moles/Vol] 133 mmol/L Low 136-144 [facility] Comment on above: Order Comment: Speci men Type: BLOOD SPECIMENOrdering Facility: [facility] Address: [address] [address] Performed By: #### 3 2355-0 #### [facility] CLIA [id number] [address] [place] Urea nitrogen [Mass/Vol] 22 mg/dL High 7-21 [facility] Comment on above: Order Comment: Speci men Type: BLOOD SPECIMENOrdering Facility: [facility] Address: [address] [address] Performed By: #### 3 2355-0 #### [facility] CLIA [id number] [address] [place] CBC panel Auto (Bld)on 06-19 Erythrocyte distribution width (RBC) [Ratio] 15.6 % High 11.5-15.0 [facility] Comment on above: Order Comment: Speci men Type: BLOOD SPECIMENOrdering Facility: [facility] Address: [address] [address] Performed By: #### 5 8410-2 ####[facility]ORYCLIA [id number] [address] [place] Hematocrit (Bld) [Volume fraction] 24.0 % Low 36.0-46.0 [facility] Comment on above: Order Comment: Speci men Type: BLOOD SPECIMENOrdering Facility: [facility] Address: [address] [address] Performed By: #### 5 8410-2 ####[facility]ORYCLIA [id number] [address] [place] Hemoglobin (Bld) [Mass/Vol] 7.6 g/dL Low 11.5-15.5 [facility] Comment on above: Order Comment: Speci men Type: BLOOD SPECIMENOrdering Facility: [facility] Address: [address] [address] Performed By: #### 5 8410-2 ####[facility]ORYCLIA [id number] [address] MCH (RBC) [Entitic mass] 29.9 pg Normal 26.0-34.0 [facility] Comment on above: Order Comment: Speci men Type: BLOOD SPECIMENOrdering Facility: [facility] Address: [address] [place] [address] Performed By: #### 5 8410-2 ####[facility]ORYCLIA [id number] [address] MCHC (RBC) [Mass/Vol] 31.7 g/dL Normal 30.5-36.0 [facility] Comment on above: Order Comment: Speci men Type: BLOOD SPECIMENOrdering Facility: [facility] Address: [address] [place] [address] Performed By: #### 5 8410-2 ####[facility]ORYCLIA [id number] [address] MCV (RBC) [Entitic vol] 94.5 fL Normal 80.0-100.0 [facility] Comment on above: Order Comment: Speci men Type: BLOOD SPECIMENOrdering Facility: [facility] Address: [address] [place] [address] Performed By: #### 5 8410-2 ####[facility]ORYCLIA [id number] [address] Nucleated RBC (Bld) [#/Vol] 0.04 10*3/uL High <0.01 [facility] Comment on above: Order Comment: Speci men Type: BLOOD SPECIMENOrdering Facility: [facility] Address: [address] [place] [address] Performed By: #### 5 8410-2 ####[facility]ORYCLIA [id number] [address] Platelet mean volume (Bld) [Entitic vol] 10.0 fL Normal 9.0-12.7 [facility] Comment on above: Order Comment: Speci men Type: BLOOD SPECIMENOrdering Facility: [facility] Address: [address] [address] Performed By: #### 5 8410-2 ####[facility]ORYCLIA [id number] [address] Platelets (Bld) [#/Vol] 219 10*3/uL Normal 150-400 [facility] Comment on above: Order Comment: Speci men Type: BLOOD SPECIMENOrdering Facility: [facility] Address: [address] [place] [address] Performed By: #### 5 8410-2 ####[facility]ORYCLIA [id number] [address] RBC (Bld) [#/Vol] 2.54 10*6/uL Low 3.90-5.20 [facility] Comment on above: Order Comment: Speci men Type: BLOOD SPECIMENOrdering Facility: [facility] Address: [address] [place] [address] Performed By: #### 5 8410-2 ####[facility]ORYCLIA [id number] [address] WBC (Bld) [#/Vol] 8.55 10*3/uL Normal 3.70-11.00 [facility] Comment on above: Order Comment: Speci men Type: BLOOD SPECIMENOrdering Facility: [facility] Address: [address] [place] [address] Performed By: #### 5 8410-2 ####[facility]ORYCLIA [id number] [address] Hemoccult Stl Ql IAon 2021 Lower GI hemoglobin IA Ql (Stl) Positive Abnormal Negative [facility] Comment on above: Order Comment: Speci men Type: BLOOD SPECIMEN [facility] [facility]OS[facility] Address: [address] [place] [address] Performed By: #### T SCR #### [facility] CLIA [id number] [address] [place] Hgb Bld-mCncon 06-19-2022 Hemoglobin (Bld) [Mass/Vol] 7.6 g/dL Low 11.5-15.5 [facility] Comment on above: Order Comment: Speci men Type: BLOOD SPECIMENOrdering Facility: [facility] Address: [address] [place] [address] Performed By: #### 7 18-7 ####[facility] LABORATORYCLIA [id number] [address] OF [facility] Magnesium SerPl-mCncon 06-19 Magnesium [Mass/Vol] 1.9 mg/dL Normal 1.7-2.3 [facility] Comment on above: Order Comment: Speci men Type: BLOOD SPECIMENOrdering Facility: [facility] Address: [address] [place] [address] Performed By: #### 3 2355-0 #### [facility] CLIA [id number] [address] OPERATIVE NOon 06-19-2022 OPERATIVE NO HNO ID: [id number] Author: Frida Rodriguez MD Service: Vascular Surgery Author Type: Physician Type: Operative Report Filed: 06/19/2022 2:59 PM Note Text: [facility] - Operative Report MEL GUADARRAMA : 1940 AGE: 81. SEX: F PATIENT TYPE: I HOSP SVC: ICU LOCATION: [facility] ATTENDING PHYSICIAN: DWAYNE ZAIDI CSN NUMBER: [id number] DATE OF SURGERY/PROCEDURE: 06/16/2022 INCISION/PROCEDURE START TIME: 5:01 PM INCISION CLOSE/PROCEDURE END TIME: 6:58 PM PREOPERATIVE DIAGNOSIS: Left lower extremity deep vein thrombosis. POSTOPERATIVE DIAGNOSIS: Left lower extremity deep vein thrombosis. SURGEON: Frida Rodriguez MD PRINTING ROLLER POLISHER: Resident, Emanuel Hull SURGERY/PROCEDURE: Venogram with intravascular [...] micropuncture needle and serially upsized to a 5-Slovenian sheath. A venogram was then performed, which [...] time, the sheath was upsized to an 8-Slovenian sheath. An intravascular ultrasound was performed. This [...] unit for further monitoring. Frida Rodriguez MD LM:[id number] /[id number] Normal [facility] Phosphate SerPl-mCncon 06-19 Phosphate [Mass/Vol] 2.4 mg/dL Low 2.7-4.8 [facility] Comment on above: Order Comment: Speci men Type: BLOOD SPECIMENOrdering Facility: [facility] Address: [address] [place] [address] Performed By: #### 3 2355-0 #### [facility] CLIA [id number] 1 [place] [address] [place] aPTT PPPon 06-19-2022 aPTT Coag (PPP) [Time] 46.9 s High 23.0-32.4 [facility] Comment on above: Order Comment: Speci men Type: BLOOD SPECIMENOrdering Facility: [facility] Address: [address] [place] [address] Performed By: #### 1 4979-9 ####[facility] LABORATORYCLIA [id number] [address] aPTT Coag (PPP) [Time] 83.8 s High 23.0-32.4 [facility] Comment on above: Order Comment: Speci men Type: BLOOD SPECIMENOrdering Facility: [facility] Address: [address] [place] [address] Performed By: #### 3 2355-0 #### [facility] CLIA [id number] [address] OF [facility] Basic metabolic 2000 panelon 06-18-2022 Anion gap [Moles/Vol] 10 mmol/L Normal 9-18 [facility] Comment on above: Order Comment: Speci men Type: BLOOD SPECIMENOrdering Facility: [facility] Address: [address] [place] [address] Performed By: #### 2 4321-2, 64596-3, 24531-9, 2776- ####[facility] LABORATORYCLIA [id number] [place] [address] [place] Calcium [Mass/Vol] 8.0 mg/dL Low 8.5-10.2 [facility] Comment on above: Order Comment: Speci men Type: BLOOD SPECIMENOrdering Facility: [facility] Address: [address] [place] [address] Performed By: #### 2 4321-2, 77398-5, 12150-7, 2776-1 ####[facility] LABORATORYCLIA [id number] [place] [address] [place] Chloride [Moles/Vol] 102 mmol/L Normal 97-105 [facility] Comment on above: Order Comment: Speci men Type: BLOOD SPECIMENOrdering Facility: [facility] Address: [address] [place] [address] Performed By: #### 2 4321-2, 77244-7, , 2776-07 ####[facility] [id number] [address] STATES OF [facility] CO2 [Moles/Vol] 21 mmol/L Low 22-30 [facility] Comment on above: Order Comment: Speci men Type: BLOOD SPECIMENOrdering Facility: [facility] Address: [address] [place] [address] Performed By: #### 2 4321-2, 79244-3, , 2776-07 ####[facility]ITALSIA [id number] [address] STATES OF [facility] Creatinine [Mass/Vol] 1.17 mg/dL High 0.58-0.96 [facility] Comment on above: Order Comment: Speci men Type: BLOOD SPECIMENOrdering Facility: [facility] Address: [address] [place] [address] Performed By: #### 2 4321-2, 42929-7, , 2776-07 ####[facility]PITALSIA [id number] [address] STATES OF [facility] ESTIMATED GLOMERULAR FILTRATION RATE 47 mL/min/1.73m??? Low >=60 [facility] Comment on above: Order Comment: Speci men Type: BLOOD SPECIMENOrdering Facility: [facility] Address: [address] [place] [address] Result Comment: Isa mated Glomerular Filtration Rate [...] actual GFR. Performed By: #### 2 4321-2, 45358-5, , 2776-07 ####[facility] LABORATORYCLIA [id number] [place] [address] [place] Glucose [Mass/Vol] 112 mg/dL High 74-99 [facility] Comment on above: Order Comment: Rhina isabella Type: BLOOD SPECIMENOrdering Facility: [facility] Address: [address] [place] [address] Result Comment: The [place] Diabetes Association (ADA) provides guidance for cutoff [...] Standards of Medical Care in Diabetes 2016, [place] Diabetes Association. Diabetes Care. 2016.39(Suppl 1). Performed By: #### 2 4321-2, 31480-1, , 2776-07 ####[facility] LABORATORYCLIA [id number] [place] [address] [place] Potassium [Moles/Vol] 4.4 mmol/L Normal 3.7-5.1 [facility] Comment on above: Order Comment: Rhina isabella Type: BLOOD SPECIMENOrdering Facility: [facility] Address: [address] [place] [address] Performed By: #### 2 4321-2, 61784-3, , 2776-07 ####[facility] LABORATORYCLIA [id number] [place] [address] [place] Sodium [Moles/Vol] 133 mmol/L Low 136-144 [facility] Comment on above: Order Comment: Rhina isabella Type: BLOOD SPECIMENOrdering Facility: [facility] Address: [address] [place] [address] Performed By: #### 2 4321-2, 15731-9, , 2776-07 ####[facility] LABORATORYCLIA [id number] [place] [address] [place] Urea nitrogen [Mass/Vol] 25 mg/dL High 7-21 [facility] Comment on above: Order Comment: Speci men Type: BLOOD SPECIMENOrdering Facility: [facility] Address: [address] [place] [address] Performed By: #### 2 4321-2, 50771-0, 61593-3, 2777-1 ####[facility] LABORATORYCLIA [id number] [place] [address] [place] CBC panel Auto (Bld)on 06-18 Erythrocyte distribution width (RBC) [Ratio] 15.6 % High 11.5-15.0 [facility] Comment on above: Order Comment: Speci men Type: BLOOD SPECIMENOrdering Facility: [facility] Address: [address] [place] [address] Performed By: #### 5 8410-2 ####[facility] LABORATORYCLIA [id number] [address] [place] Hematocrit (Bld) [Volume fraction] 26.8 % Low 36.0-46.0 [facility] Comment on above: Order Comment: Speci men Type: BLOOD SPECIMENOrdering Facility: [facility] Address: [address] [place] [address] Performed By: #### 5 8410-2 ####[facility] LABORATORYCLIA [id number] [address] [place] Hemoglobin (Bld) [Mass/Vol] 8.5 g/dL Low 11.5-15.5 [facility] Comment on above: Order Comment: Speci men Type: BLOOD SPECIMENOrdering Facility: [facility] Address: [address] [place] [address] Performed By: #### 5 8410-2 ####[facility] LABORATORYCLIA [id number] [address] [place] MCH (RBC) [Entitic mass] 30.1 pg Normal 26.0-34.0 [facility] Comment on above: Order Comment: Speci men Type: BLOOD SPECIMENOrdering Facility: [facility] Address: [address] [address] Performed By: #### 5 8410-2 ####[facility] LABORATORYCLIA [id number] [address] STATES [facility] MCHC (RBC) [Mass/Vol] 31.7 g/dL Normal 30.5-36.0 [facility] Comment on above: Order Comment: Speci men Type: BLOOD SPECIMENOrdering Facility: [facility] Address: [address] [place] [address] Performed By: #### 5 8410-2 ####[facility] LABORATORYCLIA [id number] [address] [place] MCV (RBC) [Entitic vol] 95.0 fL Normal 80.0-100.0 [facility] Comment on above: Order Comment: Speci men Type: BLOOD SPECIMENOrdering Facility: [facility] Address: [address] [place] [address] Performed By: #### 5 8410-2 ####[facility] LABORATORYCLIA [id number] [address] OF [facility] Nucleated RBC (Bld) [#/Vol] 0.03 10*3/uL High <0.01 [facility] Comment on above: Order Comment: Speci men Type: BLOOD SPECIMENOrdering Facility: [facility] Address: [address] [place] [address] Performed By: #### 5 8410-2 ####[facility] LABORATORYCLIA [id number] [address] Platelet mean volume (Bld) [Entitic vol] 10.2 fL Normal 9.0-12.7 [facility] Comment on above: Order Comment: Speci men Type: BLOOD SPECIMENOrdering Facility: [facility] Address: [address] [place] [address] Performed By: #### 5 8410-2 ####[facility] LABORATORYCLIA [id number] [place] [address] [place] Platelets (Bld) [#/Vol] 234 10*3/uL Normal 150-400 [facility] Comment on above: Order Comment: Speci men Type: BLOOD SPECIMENOrdering Facility: [facility] Address: [address] [place] [address] Performed By: #### 5 8410-2 ####[facility] LABORATORYCLIA [id number] [place] [address] [place] RBC (Bld) [#/Vol] 2.82 10*6/uL Low 3.90-5.20 [facility] Comment on above: Order Comment: Speci men Type: BLOOD SPECIMENOrdering Facility: [facility] Address: [address] [place] [address] Performed By: #### 5 8410-2 ####[facility] LABORATORYCLIA [id number] [address] WBC (Bld) [#/Vol] 8.77 10*3/uL Normal 3.70-11.00 [facility] Comment on above: Order Comment: Speci men Type: BLOOD SPECIMENOrdering Facility: [facility] Address: [address] [place] [address] Performed By: #### 5 8410-2 ####[facility] LABORATORYCLIA [id number] [address] CONSULT PROGon 06-18-2022 CONSULT PROG HNO ID: [id number] Author: Jessica Colmenares APRN.CLOTH [employer]IMMER [employer] Service: Cardiovascular Medicine Author Type: Nurse Practitioner Type: Consult Progress Note Filed: 06/18/2022 2:46 PM Note Text: The ECHO reviewed, EF 59%. No significant valvular abnormalities. Chart reviewed, no further recommendations. Thank you, Jessica Colmenares APRN.CLOTH [employer] HAND Normal [facility] CONSULT PROG HNO ID: [id number] Author: Cirilo Yip RPh Service: Pharmacy Author [...] any questions or concerns. SIGNATURE: Cirilo Yip [facility] DATE/TIME: 06/18/2022 12:02 PM [facility] CONSULT PROG HNO ID: [id number] Author: Nimo Arzola MD Service: General Surgery [...] Thoracic Service Pager: For questions or concerns Mon-Tue 6a-5p please page [phone]. After 5pm and on Weekends and Holidays, [...] 0659 06/18/22 0700 - 06/19/22 0659 Shift 3892-8926 3175-9731 3902-4079 24 Hour Total 5083-7328 8230-6002 2579-8717 24 Hour Total INTAKE IV 350 15 365 Volume (mL) 15 15 Volume (mL) (lactated ringers iv infusion) 350 350 Shift Total 350 15 365 OUTPUT Urine 6127 932 4663 Void (ml) 1450 1450 Output ( External Collection Device 06/16/22 2331) 400 400 # of BMs Stool Incontinence 1 x 1 x Number of BMs 1 x 1 x Shift Total 7510 896 5161 Weight (kg) 71.2 71.2 71.2 71.2 71.2 [...] (HCC) 06/16/2022 COPD (chronic obstructive pulmonary disease) ([facility]) 06/16/2022 Tobacco abuse 06/16/2022 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 Normal [facility] Lipid 1996 panelon 2 Cholesterol [Mass/Vol] 139 mg/dL Normal <200 [facility] Comment on above: Order Comment: Speci men Type: BLOOD SPECIMENOrdering Facility: [facility] Address: [place] [address] Result Comment: <200 mg/dL, Desirable 200-239 mg/dL, Borderline high >239 mg/dL, High Performed By: #### 2 9681-2, 80326-1, , 2776-07 ####[facility] LABORATORYCLIA [id number] [address] Cholesterol in HDL [Mass/Vol] 56 mg/dL Normal >39 [facility] Comment on above: Order Comment: Rhina mason Type: BLOOD SPECIMENOrdering Facility: [facility] Address: [address] [place] [address] Result Comment: 40-5 9 mg/dL, Acceptable >59 mg/dL, High: Negative risk factor for coronary heart disease <40 mg/dL, Low: Positive risk factor for coronary heart disease Performed By: #### 2 4321-2, 38548-2, , 2776-07 ####[facility] LABORATORYCLIA [id number] [address] Cholesterol in LDL [Mass/Vol] 64 mg/dL Normal <100 [facility] Comment on above: Order Comment: Rhina [facility] Type: BLOOD SPECIMENOrdering Facility: [facility] Address: [address] [place] [address] Result Comment: <100 mg/dL, Optimal 100-129 mg/dL, Near optimal/above optimal 130-159 mg/dL, Borderline high 160-189 mg/dL, High >189 mg/dL, Very high Secondary prevention optimal LDL Cholesterol levels are recommended to be < 70 mg/dL Performed By: #### 2 4321-2, 46405-8, , 2776-07 ####[facility] LABORATORYCLIA [id number] [address] Cholesterol in LDL/Cholesterol in HDL [Mass ratio] 1.14 {ratio} Normal <2.54 [facility] Comment on above: Order Comment: Rhina mason Type: BLOOD SPECIMENOrdering Facility: [facility] Address: [address] [place] [address] Result Comment: Refe rence: 1. National Cholesterol Education Program ATP III Guideline At-A-Glance Quick Desk Reference: National Heart, Lung, and Blood [place]. National Institutes of Health. 2001: NIH Publication No. 01-3305. 2. An International Atherosclerosis Society position paper: global recommendations for the management of dyslipidemia: executive summary, Atherosclerosis. 2014: 232(2):410-413. Performed By: #### 2 4321-2, 65470-4, , 2776-07 ####[facility] LABORATORYCLIA [id number] [place] [address] [place] Cholesterol in VLDL [Mass/Vol] 19 mg/dL Normal <30 [facility] Comment on above: Order Comment: Speci men Type: BLOOD SPECIMENOrdering Facility: [facility] Address: [address] [address] Performed By: #### 2 1-2, 60141-9, , 2776-07 ####[facility] LABORATORYCLIA [id number] [address] [place] Cholesterol non HDL [Mass/Vol] 83 mg/dL Normal <130 [facility] Comment on above: Order Comment: Speci men Type: BLOOD SPECIMENOrdering Facility: [facility] Address: [address] [address] Result Comment: <130 mg/dL, Optimal 130-159 mg/dL, Near optimal/above optimal 160-189 mg/dL, Borderline high 190-219 mg/dL, High >219 mg/dL, Very high Secondary prevention optimal non HDL Cholesterol levels are recommended to be <100 mg/dL Performed By: #### 2 1-2, 82649-9, , 2776-07 ####[facility] LABORATORYCLIA [id number] [address] [place] Cholesterol.total/Pastora sterol in HDL [Mass ratio] 2.48 {ratio} Normal <5.10 [facility] Comment on above: Order Comment: Speci men Type: BLOOD SPECIMENOrdering Facility: [facility] Address: [address] [address] Performed By: #### 2 4321-2, 10247-4, , 2776-07 ####[facility] LABORATORYCLIA [id number] [address] [place] FASTING TIME 8 hrs Normal [facility] Comment on above: Order Comment: Speci men Type: BLOOD SPECIMENOrdering Facility: [facility] Address: [address] [place] [address] Performed By: #### 2 4321-2, 54655-5, , 2776-07 ####[facility] LABORATORYCLIA [id number] [place] [address] [place] Triglyceride [Mass/Vol] 93 mg/dL Normal <150 [facility] Comment on above: Order Comment: Speci men Type: BLOOD SPECIMENOrdering Facility: [facility] Address: [address] [place] [address] Result Comment: <150 mg/dL, Normal 150-199 mg/dL, Borderline high 200-499 mg/dL, High >499 mg/dL, Very high Performed By: #### 2 4321-2, 10254-1, , 2776-07 ####[facility] LABORATORYCLIA [id number] [place] [address] [place] Magnesium SerPl-mCncon 06-18 Magnesium [Mass/Vol] 2.1 mg/dL Normal 1.7-2.3 [facility] Comment on above: Order Comment: Speci men Type: BLOOD SPECIMENOrdering Facility: [facility] Address: [address] [place] [address] Performed By: #### 2 4321-2, 71426-9, , 2776-07 ####[facility] LABORATORYCLIA [id number] [place] [address] [place] Phosphate SerPl-mCncon 06-18 Phosphate [Mass/Vol] 3.3 mg/dL Normal 2.7-4.8 [facility] Comment on above: Order Comment: Speci men Type: BLOOD SPECIMENOrdering Facility: [facility] Address: [address] [place] [address] Performed By: #### 2 4321-2, 37126-3, , 2776-07 ####[facility] LABORATORYCLIA [id number] [address] aPTT PPPon 06-18-2022 aPTT Coag (PPP) [Time] 37.2 s High 23.0-32.4 [facility] Comment on above: Order Comment: Speci men Type: BLOOD SPECIMENOrdering Facility: [facility] Address: [address] [place] [address] Performed By: #### 9 4500-6 #### [facility] CLIA [id number] [address] [place] [address] aPTT Coag (PPP) [Time] 58.8 s High 23.0-32.4 [facility] Comment on above: Order Comment: Speci men Type: BLOOD SPECIMENOrdering Facility: [facility] Address: [address] [place] [address] Performed By: #### 1 4979-9 ####[facility] LABORATORYCLIA [id number] [address] aPTT Coag (PPP) [Time] 127.7 s High 23.0-32.4 [facility] Comment on above: Order Comment: Speci men Type: BLOOD SPECIMEN [facility] Address: [address] [place] [address] Performed By: #### T SCR #### [facility] CLIA [id number] [address] [place] [address] ALLIED HEALTHon 06-17-2022 ALLIED HEALTH HNO ID: [id number] Author: RT [place](R) Service: Radiology Author Type: [...] RT [place](R) June 17, 2022 9:30 AM [facility] ALLIED HEALTH HNO ID: [id number] Author: Jeremías Bragg TAWNY Service: Infection Prevention [...] TIME: 8:27 AM PAGER/CONTACT #: Infection Prevention, [id number] Infection Prevention after hours/weekend pager: [phone] [facility] ANES POSTPROC EVALon 022 ANES POSTPROC EVAL HNO ID: [id number] Author: Larry Moss MD Service: Anesthesiology Author Type: Anesthesiologist Type: Anesthesia Postprocedure Evaluation Filed: 06/17/2022 6:51 AM Note Text: POST ANESTHESIA EVALUATION NOTE : 1940 Procedure Summary Date: 06/16/22 Room / Location: AL OR / [place] OR Anesthesia Start: 1609 Anesthesia Stop: 1934 [...] Vitals Vitals Value Taken Time BP 81/59 06/16/22 1947 Temp 36.6 ?C (97.9 ?F) 06/17/22 0300 [...] June 17, 2022 TIME: 6:50 AM CSN: [id number] Normal [facility] Basic metabolic 2000 panelon 06-17-2022 Anion gap [Moles/Vol] 9 mmol/L Normal 9-18 [facility] Comment on above: Order Comment: Speci isabella Type: BLOOD SPECIMENOrdering Facility: [facility] Address: [address] [place], [place] [address] Performed By: #### 2 4321-2, 27547-0, 2777-1 ####[facility] LABORATORYCLIA [id number] [place] [address] [place] Calcium [Mass/Vol] 7.9 mg/dL Low 8.5-10.2 [facility] Comment on above: Order Comment: Speci men Type: BLOOD SPECIMENOrdering Facility: [facility] Address: [address] [place] [address] Performed By: #### 2 4321-2, , 2776-07 ####[facility] LABORATORYCLIA [id number] [place] [address] [place] Chloride [Moles/Vol] 107 mmol/L High 97-105 [facility] Comment on above: Order Comment: Speci men Type: BLOOD SPECIMENOrdering Facility: [facility] Address: [address] [place] [address] Performed By: #### 2 4321-2, , 2776-07 ####[facility] LABORATORYCLIA [id number] [place] [address] [place] CO2 [Moles/Vol] 21 mmol/L Low 22-30 [facility] Comment on above: Order Comment: Speci men Type: BLOOD SPECIMENOrdering Facility: [facility] Address: [address] [place] [address] Performed By: #### 2 4321-2, , 2776-07 ####[facility] LABORATORYCLIA [id number] [place] [address] [place] Creatinine [Mass/Vol] 0.99 mg/dL High 0.58-0.96 [facility] Comment on above: Order Comment: Speci men Type: BLOOD SPECIMENOrdering Facility: [facility] Address: [address] [place] [address] Performed By: #### 2 4321-2, , 2776-07 ####[facility] LABORATORYCLIA [id number] [address] [place] ESTIMATED GLOMERULAR FILTRATION RATE 57 mL/min/1.73m??? Low >=60 [facility] Comment on above: Order Comment: Speci men Type: BLOOD SPECIMENOrdering Facility: [facility] Address: [address] [place] [address] Result Comment: Isa mated Glomerular Filtration Rate [...] Performed By: #### 2 4321-2, , 2776-07 ####[facility] LABORATORYCLIA [id number] [place] [address] [place] Glucose [Mass/Vol] 84 mg/dL Normal 74-99 [facility] Comment on above: Order Comment: Rhina mason Type: BLOOD SPECIMENOrdering Facility: [facility] Address: [address] [place] [address] Result Comment: The [place] Diabetes Association (ADA) provides guidance for cutoff [...] Standards of [facility] 2016, [place] [employer]. Diabetes Care. 2016.39(Suppl 1). Performed By: #### 2 4321-2, , 2776-07 ####[facility] LABORATORYCLIA [id number] [place] [address] [place] Potassium [Moles/Vol] 4.3 mmol/L Normal 3.7-5.1 [facility] Comment on above: Order Comment: Rhina mason Type: BLOOD SPECIMENOrdering Facility: [facility] Address: [place] [address] Performed By: #### 2 4321-2, , 2776-07 ####[facility] LABORATORYCLIA [id number] [place] [address] [place] Sodium [Moles/Vol] 137 mmol/L Normal 136-144 [facility] Comment on above: Order Comment: Speci men Type: BLOOD SPECIMENOrdering Facility: [facility] Address: [address] [address] Performed By: #### 2 4321-2, , 2776-07 ####[facility] LABORATORYCLIA [id number] [place] [address] [place] Urea nitrogen [Mass/Vol] 27 mg/dL High 7-21 [facility] Comment on above: Order Comment: Speci men Type: BLOOD SPECIMENOrdering Facility: [facility] Address: [address] [address] Performed By: #### 2 4321-2, , 2776-07 ####[facility] LABORATORYCLIA [id number] [address] [place] CBC panel Auto (Bld)on 06-17 Erythrocyte distribution width (RBC) [Ratio] 15.5 % High 11.5-15.0 [facility] Comment on above: Order Comment: Speci men Type: BLOOD SPECIMENOrdering Facility: [facility] Address: [address] [place] [address] Performed By: #### 5 8410-2 ####[facility] LABORATORYCLIA [id number] [address] [place] Hematocrit (Bld) [Volume fraction] 26.6 % Low 36.0-46.0 [facility] Comment on above: Order Comment: Speci men Type: BLOOD SPECIMENOrdering Facility: [facility] Address: [address] [place] [address] Performed By: #### 5 8410-2 ####[facility] LABORATORYCLIA [id number] [address] [place] Hemoglobin (Bld) [Mass/Vol] 8.5 g/dL Low 11.5-15.5 [facility] Comment on above: Order Comment: Speci men Type: BLOOD SPECIMENOrdering Facility: [facility] Address: [address] [place] [address] Performed By: #### 5 8410-2 ####[facility] LABORATORYCLIA [id number] [address] MCH (RBC) [Entitic mass] 30.0 pg Normal 26.0-34.0 [facility] Comment on above: Order Comment: Speci men Type: BLOOD SPECIMENOrdering Facility: [facility] Address: [address] [place] [address] Performed By: #### 5 8410-2 ####[facility] LABORATORYCLIA [id number] [address] MCHC (RBC) [Mass/Vol] 32.0 g/dL Normal 30.5-36.0 [facility] Comment on above: Order Comment: Speci men Type: BLOOD SPECIMENOrdering Facility: [facility] Address: [address] [place] [address] Performed By: #### 5 8410-2 ####[facility] LABORATORYCLIA [id number] [address] MCV (RBC) [Entitic vol] 94.0 fL Normal 80.0-100.0 [facility] Comment on above: Order Comment: Speci men Type: BLOOD SPECIMENOrdering Facility: [facility] Address: [address] [place] [address] Performed By: #### 5 8410-2 ####[facility] LABORATORYCLIA [id number] [address] Nucleated RBC (Bld) [#/Vol] 0.02 10*3/uL High <0.01 [facility] Comment on above: Order Comment: Speci men Type: BLOOD SPECIMENOrdering Facility: [facility] Address: [address] [place] [address] Performed By: #### 5 8410-2 ####[facility] LABORATORYCLIA [id number] [address] [place] Platelet mean volume (Bld) [Entitic vol] 9.5 fL Normal 9.0-12.7 [facility] Comment on above: Order Comment: Speci men Type: BLOOD SPECIMENOrdering Facility: [facility] Address: [address] [place] [address] Performed By: #### 5 8410-2 ####[facility] LABORATORYCLIA [id number] [address] OF [facility] Platelets (Bld) [#/Vol] 223 10*3/uL Normal 150-400 [facility] Comment on above: Order Comment: Speci men Type: BLOOD SPECIMENOrdering Facility: [facility] Address: [address] [place] [address] Performed By: #### 5 8410-2 ####[facility] LABORATORYCLIA [id number] [address] RBC (Bld) [#/Vol] 2.83 10*6/uL Low 3.90-5.20 [facility] Comment on above: Order Comment: Speci men Type: BLOOD SPECIMENOrdering Facility: [facility] Address: [address] [place] [address] Performed By: #### 5 8410-2 ####[facility] LABORATORYCLIA [id number] [address] WBC (Bld) [#/Vol] 8.61 10*3/uL Normal 3.70-11.00 [facility] Comment on above: Order Comment: Speci men Type: BLOOD SPECIMENOrdering Facility: [facility] Address: [address] [place] [address] Performed By: #### 5 8410-2 ####[facility] LABORATORYCLIA [id number] [address] CONSULTon 06-17-2022 CONSULT HNO ID: [id number] Author: García Monique MD Service: Cardiovascular Medicine Author Type: Physician Type: Consults Filed: 06/17/2022 11:14 AM Note Text: CARDIOVASCULAR INTENSIVE CARE UNIT ([facility]) History AND Physical Note PATIENT NAME: Mel Castillo DATE: June 17, 2022 ADMITTED FOR: Subjective HPI Ms. Mel F Pop Castillo is a 81 year old female with PMH: - Paroxysmal Afib - GERD - HTN - Hypothyroidism Patient presented to [facility] on 06/16/2022 for evaluation of left [...] her covid symptoms. States doesnot see a computer assistant and has no other past cardiac history [...] Procedure Component Value Units Date/Time Expedited COVID19 [[id number]] (Abnormal) Collected: 06/16/22826 Order Status: Completed Specimen: Nasal Swab from UPPER RESPIRATORY TRACT SWAB Updated: 06/16/221107 COVID 19 Result SARS-CoV-2 (Agent of COVID-19) Detected by RT-PCR or equivalent method. Comment: This test has been authorized by FDA under an Emergency Use Authorization (EUA). IMAGING: CT chest: No results found for: (more content not included)... Normal [facility] CONSULT PROGon 06-17-2022 CONSULT PROG HNO ID: [id number] Author: Dominique Lauren RPh Service: Pharmacy Author [...] Dominique Lauren RPh DATE/TIME: 06/17/2022 3:47 PM [facility] CONSULT PROG HNO ID: [id number] Author: Emanuel Hull MD Service: General Surgery [...] questions or concerns Mon-Fri 6a-5p please page [phone]. After 5pm and on Weekends and Holidays, please page [phone] if in ICU or [phone] if on RNF. Subjective SUBJECTIVE: Was able [...] O2 Therapy: Nasal Cannula IANDO: Date 06/16/22 0700 - 06/17/22 0659 06/17/22 0700 - 06/18/22 0659 Shift 1722-2351 7632-1156 2714-7060 24 Hour Total 7858-6330 3328-9121 7715-5025 24 Hour Total INTAKE IV 600 1000 [...] Estimated Blood loss 100 100 Shift Total 650 149 1212 Weight (kg) 72.6 71.2 71.2 71.2 71.2 [...] (more content not included)... Normal [facility] ECHOon 06-17-2022 Echocardiography Echocardiography Report: Transthoracic Echo [facility] Date of service: 06/17/2022 10:27:19 AM [facility] Ordering physician: GARCÍA MONIQUE Indication: Nonsustained atrial fibrillation Technologist: Glendy Pena [facility] Interpreting physician: Nando Costa MD PATIENT: [...] * * Final * * * CC [employer] [facility] : [id number] Normal [facility] Magnesium SerPl-mCncon 06-17 Magnesium [Mass/Vol] 2.1 mg/dL Normal 1.7-2.3 [facility] Comment on above: Order Comment: Speci men Type: BLOOD SPECIMENOrdering Facility: [facility] Address: [address] [place], [place] [address] Performed By: #### 2 4321-2, 33234-1, 2777-1 ####[facility] LABORATORYCLIA [id number] [address] [id number] [facility] Phosphate SerPl-mCncon 06-17 Phosphate [Mass/Vol] 3.8 mg/dL Normal 2.7-4.8 [facility] Comment on above: Order Comment: Speci men Type: BLOOD SPECIMENOrdering Facility: [facility] Address: [address] [place], [place] [address] Performed By: #### 2 4321-2, 80034-0, 2777-1 ####[facility] LABORATORYCLIA [id number] [address] [place] XR CHEST 1V FRONTALon 2021 [...] Comparison: None. RESULT: Lines, tubes, and devices: monitoring analyst leads. Hardware noted in the proximal right [...] in both lungs suspicious for multifocal pneumonia. Patient Admitting Clerk: DEVEN Transcribe Date/Time: Jun 17 2022 10:41A Dictated by : DI MINER MD This examination was interpreted and the report reviewed and electronically signed by: DI MINER MD on Jun 17 2022 10:43AM EST [id number] Normal [facility] aPTT PPPon 06-17-2022 aPTT Coag (PPP) [Time] 48.4 s High 23.0-32.4 [facility] Comment on above: Order Comment: Speci men Type: BLOOD SPECIMENOrdering Facility: [facility] Address: [address] [place] [address] Performed By: #### 9 4500-6 #### [facility] CLIA [id number] [address] aPTT Coag (PPP) [Time] 29.4 s Normal 23.0-32.4 [facility] Comment on above: Order Comment: Speci men Type: BLOOD SPECIMENOrdering Facility: [facility] Address: [address] [place] [address] Performed By: #### 3 2355-0 #### [facility] CLIA [id number] [address] aPTT Coag (PPP) [Time] 125.1 s High 23.0-32.4 [facility] Comment on above: Order Comment: Speci men Type: BLOOD SPECIMEN [facility] Address: [address] [place] [address] Performed By: #### T SCR #### [facility] CLIA [id number] [address] aPTT Coag (PPP) [Time] s High 23.0-32.4 [facility] Comment on above: Order Comment: Speci men Type: BLOOD SPECIMENOrdering Facility: [facility] Address: [address] [place] [address] Performed By: #### 3 2355-0 #### [facility] CLIA [id number] [address] aPTT Coag (PPP) [Time] 28.5 s Normal 23.0-32.4 [facility] Comment on above: Order Comment: Speci men Type: BLOOD SPECIMENOrdering Facility: [facility] Address: [place] [address] Performed By: #### 1 4979-9 ####[facility] LABORATORYCLIA [id number] [place] [address] [place] ANES PRE-OPon 06-16-2022 ANES PRE-OP HNO ID: [id number] Author: Olu Winn MD Service: Anesthesiology Author Type: Physician Type: Anesthesia Preprocedure Evaluation Filed: 06/16/2022 5:41 PM Note Text: ANESTHESIOLOGY DAY OF SURGERY NOTE : 1940 Procedure Information Date/Time: 06/16/221539 Procedure: TRANSCATHETER THERAPY VENOUS INFUSION FOR THROMBOLYSIS W/RADIOLOGICAL SUPERVISION/INTERPRETAT ION INITIAL TREATMENT DAY, venogram (Left: Leg lower ) Location: [place] [address] [place] [address] [place] Surgeons: Frida Rodriguez MD Estimated body [...] June 16, 2022 TIME: 3:44 PM CSN: [id number] [facility] BRIEF OP NOTon 06-16-2022 BRIEF OP NOT HNO ID: [id number] Author: Emanuel Hull MD Service: General Surgery [...] BRIEF OPERATIVE / PROCEDURE NOTE LOG ID: [id number] Surgery/Procedure Date: 06/16/2022 Incision/Procedure Start Time: 5:01 PM Incision Close/Procedure End Time: 6:58 PM Surgeon(s)/Proceduralis t(s) and Cloth Washer Back Tender(s): Surgeon(s) and Role: * Frida Rodriguez MD [...] and on weekends, please page surgery on-call [phone] (RNF) or [phone] (ICU) SIGNATURE: Emanuel Hull MD PATIENT NAME: Mel Castillo DATE: June 16, 2022 TIME: 7:19 PM PAGER/CONTACT #: [phone] Normal [facility] CBC W Auto Differential pane l (Bld)on 06-16-2022 Anisocytosis Ql (Bld) Present Normal [facility] Comment on above: Order Comment: Speci men Type: BLOOD SPECIMENOrdering Facility: [facility] Address: [address] [place] [address] Performed By: #### 5 7021-8 ####[facility] LABORATORYCLIA [id number] [address] [place] Basophils (Bld) [#/Vol] 0.00 10*3/uL Normal <0.11 [facility] Comment on above: Order Comment: Speci men Type: BLOOD SPECIMENOrdering Facility: [facility] Address: [address] [place] [address] Performed By: #### 5 7021-8 ####[facility] LABORATORYCLIA [id number] [place] [address] [place] Basophils/100 WBC (Bld) 0.0 % Normal [facility] Comment on above: Order Comment: Speci men Type: BLOOD SPECIMENOrdering Facility: [facility] Address: [address] [place] [address] Performed By: #### 5 7021-8 ####[facility] LABORATORYCLIA [id number] [address] [place] Differential cell count method Nom (Bld) Manual Normal [facility] Comment on above: Order Comment: Speci men Type: BLOOD SPECIMENOrdering Facility: [facility] Address: [address] [place] [address] Performed By: #### 5 7021-8 ####[facility]ATORYCLIA [id number] [place] [address] [place] Eosinophils (Bld) [#/Vol] 0.00 10*3/uL Normal <0.46 [facility] Comment on above: Order Comment: Speci men Type: BLOOD SPECIMENOrdering Facility: [facility] Address: [address] [address] Performed By: #### 5 7021-8 ####[facility] LABORATORYCLIA [id number] [address] [place] Eosinophils/100 WBC (Bld) 0.0 % Normal [facility] Comment on above: Order Comment: Speci men Type: BLOOD SPECIMENOrdering Facility: [facility] Address: [address] [place] [address] Performed By: #### 5 7021-8 ####[facility] LABORATORYCLIA [id number] [address] [place] Erythrocyte distribution width (RBC) [Ratio] 15.6 % High 11.5-15.0 [facility] Comment on above: Order Comment: Speci men Type: BLOOD SPECIMENOrdering Facility: [facility] Address: [address] [place] [address] Performed By: #### 5 7021-8 ####[facility]ORATORYCLIA [id number] [address] [place] Hematocrit (Bld) [Volume fraction] 35.3 % Low 36.0-46.0 [facility] Comment on above: Order Comment: Speci men Type: BLOOD SPECIMENOrdering Facility: [facility] Address: [address] [place] [address] Performed By: #### 5 7021-8 ####[facility] LABORATORYCLIA [id number] [address] [place] Hemoglobin (Bld) [Mass/Vol] 11.4 g/dL Low 11.5-15.5 [facility] Comment on above: Order Comment: Speci men Type: BLOOD SPECIMENOrdering Facility: [facility] Address: [address] [place] [address] Performed By: #### 5 7021-8 ####[facility] LABORATORYCLIA [id number] [address] [place] Lymphocytes (Bld) [#/Vol] 1.27 10*3/uL Normal 1.00-4.00 [facility] Comment on above: Order Comment: Speci men Type: BLOOD SPECIMENOrdering Facility: [facility] Address: [address] [place] [address] Performed By: #### 5 7021-8 ####[facility] LABORATORYCLIA [id number] [address] Lymphocytes/100 WBC (Bld) 8.0 % Normal [facility] Comment on above: Order Comment: Speci men Type: BLOOD SPECIMENOrdering Facility: [facility] Address: [address] [place] [address] Performed By: #### 5 7021-8 ####[facility] LABORATORYCLIA [id number] [address] STATES OF [facility] MCH (RBC) [Entitic mass] 30.2 pg Normal 26.0-34.0 [facility] Comment on above: Order Comment: Speci men Type: BLOOD SPECIMENOrdering Facility: [facility] Address: [address] [place] [address] Performed By: #### 5 7021-8 ####[facility] LABORATORYCLIA [id number] [address] MCHC (RBC) [Mass/Vol] 32.3 g/dL Normal 30.5-36.0 [facility] Comment on above: Order Comment: Speci men Type: BLOOD SPECIMENOrdering Facility: [facility] Address: [address] [place] [address] Performed By: #### 5 7021-8 ####[facility]ORATORYCLIA [id number] [address] [place] MCV (RBC) [Entitic vol] 93.6 fL Normal 80.0-100.0 [facility] Comment on above: Order Comment: Speci men Type: BLOOD SPECIMENOrdering Facility: [facility] Address: [address] [place] [address] Performed By: #### 5 7021-8 ####[facility] LABORATORYCLIA [id number] [place] [address] [place] Monocytes (Bld) [#/Vol] 1.74 10*3/uL High <0.87 [facility] Comment on above: Order Comment: Speci men Type: BLOOD SPECIMENOrdering Facility: [facility] Address: [address] [place] [address] Performed By: #### 5 7021-8 ####[facility]ORATORYCLIA [id number] [address] [place] Monocytes/100 WBC (Bld) 11.0 % Normal [facility] Comment on above: Order Comment: Speci men Type: BLOOD SPECIMENOrdering Facility: [facility] Address: [address] [place] [address] Performed By: #### 5 7021-8 ####[facility] LABORATORYCLIA [id number] [address] [place] MYELO% 4.0 % Normal [facility] Comment on above: Order Comment: Speci men Type: BLOOD SPECIMENOrdering Facility: [facility] Address: [address] [place] [address] Performed By: #### 5 7021-8 ####[facility] LABORATORYCLIA [id number] [address] [place] Neutrophils (Bld) [#/Vol] 12.02 10*3/uL High 1.45-7.50 [facility] Comment on above: Order Comment: Speci men Type: BLOOD SPECIMENOrdering Facility: [facility] Address: [address] [place] [address] Performed By: #### 5 7021-8 ####[facility] LABORATORYCLIA [id number] [address] [place] Neutrophils/100 WBC (Bld) 76.0 % Normal [facility] Comment on above: Order Comment: Speci men Type: BLOOD SPECIMENOrdering Facility: [facility] Address: [address] [place] [address] Performed By: #### 5 7021-8 ####[facility]ATORYCLIA [id number] [place] [address] [place] Nucleated RBC (Bld) [#/Vol] 10*3/uL Normal <0.01 [facility] Comment on above: Order Comment: Speci men Type: BLOOD SPECIMENOrdering Facility: [facility] Address: [address] [place] [address] Performed By: #### 5 7021-8 ####[facility] LABORATORYCLIA [id number] [address] [place] Nucleated RBC/100 WBC (Bld) [Ratio] 0.0 /100 WBC Normal [facility] Comment on above: Order Comment: Speci men Type: BLOOD SPECIMENOrdering Facility: [facility] Address: [address] [place] [address] Performed By: #### 5 7021-8 ####[facility] LABORATORYCLIA [id number] [address] [place] Platelet mean volume (Bld) [Entitic vol] 9.7 fL Normal 9.0-12.7 [facility] Comment on above: Order Comment: Speci men Type: BLOOD SPECIMENOrdering Facility: [facility] Address: [address] [place] [address] Performed By: #### 5 7021-8 ####[facility] LABORATORYCLIA [id number] [place] [address] [place] Platelets (Bld) [#/Vol] 373 10*3/uL Normal 150-400 [facility] Comment on above: Order Comment: Speci men Type: BLOOD SPECIMENOrdering Facility: [facility] Address: [address] [place] [address] Performed By: #### 5 7021-8 ####[facility]ORATORYCLIA [id number] [address] [place] Platelets Estimate (Bld) [#/Vol] Adequate Normal [facility] Comment on above: Order Comment: Speci men Type: BLOOD SPECIMENOrdering Facility: [facility] Address: [address] [address] Performed By: #### 5 7021-8 ####[facility]ORATORYCLIA [id number] [address] PROMYL% 1.0 % Normal [facility] Comment on above: Order Comment: Speci men Type: BLOOD SPECIMENOrdering Facility: [facility] Address: [address] [place] [address] Performed By: #### 5 7021-8 ####[facility] LABORATORYCLIA [id number] [address] RBC (Bld) [#/Vol] 3.77 10*6/uL Low 3.90-5.20 [facility] Comment on above: Order Comment: Speci men Type: BLOOD SPECIMENOrdering Facility: [facility] Address: [address] [place] [address] Performed By: #### 5 7021-8 ####[facility] LABORATORYCLIA [id number] [address] RED CELL MORPH Normal Normal [facility] Comment on above: Order Comment: Speci men Type: BLOOD SPECIMENOrdering Facility: [facility] Address: [address] [place] [address] Performed By: #### 5 7021-8 ####[facility]ORATORYCLIA [id number] [address] SPHEROCYTES Few Normal [facility] Comment on above: Order Comment: Speci men Type: BLOOD SPECIMENOrdering Facility: [facility] Address: [address] [place] [address] Performed By: #### 5 7021-8 ####[facility]ATORYCLIA [id number] [address] [place] WBC (Bld) [#/Vol] 15.82 10*3/uL High 3.70-11.00 [facility] Comment on above: Order Comment: Speci men Type: BLOOD SPECIMENOrdering Facility: [facility] Address: [address] [address] Result Comment: Resu lts checked and verified. Performed By: #### 5 7021-8 ####[facility]ORATORYCLIA [id number] [address] CBC panel Auto (Bld)on 06-16 Erythrocyte distribution width (RBC) [Ratio] 15.5 % High 11.5-15.0 [facility] Comment on above: Order Comment: Speci men Type: BLOOD SPECIMENOrdering Facility: [facility] Address: [address] [address] Performed By: #### 5 8410-2 ####[facility]ORATORYCLIA [id number] [address] Hematocrit (Bld) [Volume fraction] 30.1 % Low 36.0-46.0 [facility] Comment on above: Order Comment: Speci men Type: BLOOD SPECIMENOrdering Facility: [facility] Address: [address] [place] [address] Performed By: #### 5 8410-2 ####[facility]ORATORYCLIA [id number] [address] Hemoglobin (Bld) [Mass/Vol] 9.8 g/dL Low 11.5-15.5 [facility] Comment on above: Order Comment: Speci men Type: BLOOD SPECIMENOrdering Facility: [facility] Address: [address] [address] Performed By: #### 5 8410-2 ####[facility] LABORATORYCLIA [id number] [address] MCH (RBC) [Entitic mass] 30.8 pg Normal 26.0-34.0 [facility] Comment on above: Order Comment: Speci men Type: BLOOD SPECIMENOrdering Facility: [facility] Address: [address] [address] Performed By: #### 5 8410-2 ####[facility] LABORATORYCLIA [id number] [address] MCHC (RBC) [Mass/Vol] 32.6 g/dL Normal 30.5-36.0 [facility] Comment on above: Order Comment: Speci men Type: BLOOD SPECIMENOrdering Facility: [facility] Address: [address] [place] [address] Performed By: #### 5 8410-2 ####[facility] LABORATORYCLIA [id number] [address] [place] MCV (RBC) [Entitic vol] 94.7 fL Normal 80.0-100.0 [facility] Comment on above: Order Comment: Speci men Type: BLOOD SPECIMENOrdering Facility: [facility] Address: [address] [place] [address] Performed By: #### 5 8410-2 ####[facility] LABORATORYCLIA [id number] [address] OF [facility] Nucleated RBC (Bld) [#/Vol] 0.08 10*3/uL High <0.01 [facility] Comment on above: Order Comment: Speci men Type: BLOOD SPECIMENOrdering Facility: [facility] Address: [address] [place] [address] Performed By: #### 5 8410-2 ####[facility] LABORATORYCLIA [id number] [address] [place] Platelet mean volume (Bld) [Entitic vol] 9.6 fL Normal 9.0-12.7 [facility] Comment on above: Order Comment: Speci men Type: BLOOD SPECIMENOrdering Facility: [facility] Address: [address] [place] [address] Performed By: #### 5 8410-2 ####[facility] LABORATORYCLIA [id number] [address] Platelets (Bld) [#/Vol] 277 10*3/uL Normal 150-400 [facility] Comment on above: Order Comment: Speci men Type: BLOOD SPECIMENOrdering Facility: [facility] Address: [address] [place] [address], [place] [address] Performed By: #### 5 8410-2 ####[facility] LABORATORYCLIA [id number] [place] [id number] [facility] RBC (Bld) [#/Vol] 3.18 10*6/uL Low 3.90-5.20 [facility] Comment on above: Order Comment: Speci men Type: BLOOD SPECIMENOrdering Facility: [facility] Address: [address] [address] Performed By: #### 5 8410-2 ####[facility] LABORATORYCLIA [id number] [place] [id number] [facility] WBC (Bld) [#/Vol] 10.43 10*3/uL Normal 3.70-11.00 [facility] Comment on above: Order Comment: Speci men Type: BLOOD SPECIMENOrdering Facility: [facility] Address: [address] [address] Performed By: #### 5 8410-2 ####[facility] LABORATORYCLIA [id number] [address] OF [facility] CONSULTon 06-16-2022 CONSULT HNO ID: [id number] Author: Iman Saldana DO Service: General Surgery [...] Coags, BMP, Mg, Phos Recent Labs 06/16/22 0341 06/16/22 0304 WBC 15.82* -- HB 11.4* -- [...] (more content not included)... Normal [facility] CTA ABD/PEL/LOWER EXT W IVCO Non 06-16-2022 CTA ABD/PEL/LOWER EXT W IVCON * * *Final Report* * * DATE OF EXAM: Jun 16 2022 7:33AM [facility] 0122 - CTA ABD/PEL/LOWER EXT W IVCON [...] lobe consolidation may represent pneumonia or atelectasis. Patient Admitting Clerk: PSCB Transcribe Date/Time: Jun 16 2022 7:54A Dictated by : ESTHER MCKEON MD This examination was interpreted and the report reviewed and electronically signed by: ESTHER MCKEON MD on Jun 16 2022 8:22AM EST [id number] Normal [facility] Comprehensive metabolic 2000 panelon 06-16-2022 Albumin [Mass/Vol] 3.2 g/dL Low 3.9-4.9 [facility] Comment on above: Order Comment: Speci men Type: BLOOD SPECIMENOrdering Facility: [facility] Address: [address] [phone] Performed By: #### 3 3959-8, 04815-5, 36161-1, 32827-5 ####[facility] LABORATORYCLIA [id number] [place] [address] [place] ALP [Catalytic activity/Vol] 111 U/L Normal 34-123 [facility] Comment on above: Order Comment: Speci men Type: BLOOD SPECIMENOrdering Facility: [facility] Address: [address] [phone] Performed By: #### 3 3959-8, 93740-9, 96828-5, 39429-1 ####[facility] LABORATORYCLIA [id number] [place] [address] [place] ALT With P-5'-P [Catalytic activity/Vol] 20 U/L Normal 7-38 [facility] Comment on above: Order Comment: Speci men Type: BLOOD SPECIMENOrdering Facility: [facility] Address: [address] [address] Performed By: #### 3 3959-8, 98511-9, 04172-9, 07278-9 ####[facility] LABORATORYCLIA [id number] [place] [address] [place] Anion gap [Moles/Vol] 17 mmol/L Normal 9-18 [facility] Comment on above: Order Comment: Speci men Type: BLOOD SPECIMENOrdering Facility: [facility] Address: [address] [place] [address] Performed By: #### 3 3959-8, 03280-7, 03941-7, 10302-8 ####[facility] LABORATORYCLIA [id number] [place] [address] [place] AST With P-5'-P [Catalytic activity/Vol] 13 U/L Normal 13-35 [facility] Comment on above: Order Comment: Speci men Type: BLOOD SPECIMENOrdering Facility: [facility] Address: [address] [place] [address] Performed By: #### 3 3959-8, 53085-3, 88642-5, 55450-9 ####[facility] LABORATORYCLIA [id number] [place] [address] [place] Bilirubin [Mass/Vol] 0.3 mg/dL Normal 0.2-1.3 [facility] Comment on above: Order Comment: Speci men Type: BLOOD SPECIMENOrdering Facility: [facility] Address: [address] [place] [address] Performed By: #### 3 3959-8, 73305-8, 09968-6, 36740-1 ####[facility] LABORATORYCLIA [id number] [place] [address] [place] Calcium [Mass/Vol] 9.1 mg/dL Normal 8.5-10.2 [facility] Comment on above: Order Comment: Speci men Type: BLOOD SPECIMENOrdering Facility: [facility] Address: [address] [place] [address] Performed By: #### 3 3959-8, 07675-8, 70829-3, 20987-3 ####[facility] LABORATORYCLIA [id number] [place] [address] [place] Chloride [Moles/Vol] 104 mmol/L Normal 97-105 [facility] Comment on above: Order Comment: Speci men Type: BLOOD SPECIMENOrdering Facility: [facility] Address: [address] [place] [address] Performed By: #### 3 3959-8, 31659-1, 79109-2, 39001-4 ####[facility] LABORATORYCLIA [id number] [place] [address] [place] CO2 [Moles/Vol] 18 mmol/L Low 22-30 [facility] Comment on above: Order Comment: Speci men Type: BLOOD SPECIMENOrdering Facility: [facility] Address: [address] [place] [address] Performed By: #### 3 3959-8, 67696-5, 99796-7, 97386-3 ####[facility] LABORATORYCLIA [id number] [address] [place] Creatinine [Mass/Vol] 1.14 mg/dL High 0.58-0.96 [facility] Comment on above: Order Comment: Speci men Type: BLOOD SPECIMENOrdering Facility: [facility] Address: [address] [place] [address] Performed By: #### 3 3959-8, 98493-4, 81814-3, 39551-5 ####[facility] LABORATORYCLIA [id number] [address] [place] ESTIMATED GLOMERULAR FILTRATION RATE 48 mL/min/1.73m??? Low >=60 [facility] Comment on above: Order Comment: Speci men Type: BLOOD SPECIMENOrdering Facility: [facility] Address: [address] [place] [address] Result Comment: Isa mated Glomerular Filtration Rate [...] actual GFR. Performed By: #### 3 3959-8, 75950-9, 88839-4, 61081-8 ####[facility] LABORATORYCLIA [id number] [address] [id number] [place] Glucose [Mass/Vol] 122 mg/dL High 74-99 [facility] Comment on above: Order Comment: Rhina mason Type: BLOOD SPECIMENOrdering Facility: [facility] Address: [address] [place] [address] Result Comment: The [place] [employer] Association (ADA) provides guidance for cutoff [...] Standards of Medical Care in Diabetes 2016, [place] [employer]. Diabetes Care. 2016.39(Suppl 1). Performed By: #### 3 3959-8, 67711-2, 03658-2, 26905-5 ####[facility] LABORATORYCLIA [id number] [place] [address] [place] Potassium [Moles/Vol] 4.4 mmol/L Normal 3.7-5.1 [facility] Comment on above: Order Comment: Rhina mason Type: BLOOD SPECIMENOrdering Facility: [facility] Address: [address] [place], [place] [id number] Performed By: #### 3 3959-8, 87506-7, 63650-8, 43939-0 ####[facility] LABORATORYCLIA [id number] [place] [id number] [place] Protein [Mass/Vol] 6.6 g/dL Normal 6.3-8.0 [facility] Comment on above: Order Comment: Speci men Type: BLOOD SPECIMENOrdering Facility: [facility] Address: [address] [place] [address] Performed By: #### 3 3959-8, 77639-4, 04854-1, 67302-7 ####[facility] LABORATORYCLIA [id number] [place] [id number] [place] Sodium [Moles/Vol] 139 mmol/L Normal 136-144 [facility] Comment on above: Order Comment: Speci men Type: BLOOD SPECIMENOrdering Facility: [facility] Address: [address] [place] [address] Performed By: #### 3 3959-8, 30020-5, 50953-9, 85691-7 ####[facility] LABORATORYCLIA [id number] [address] [place] Urea nitrogen [Mass/Vol] 35 mg/dL High 7-21 [facility] Comment on above: Order Comment: Speci men Type: BLOOD SPECIMENOrdering Facility: [facility] Address: [address] [place] [address] Performed By: #### 3 3959-8, 28332-6, 19772-0, 67892-1 ####[facility] LABORATORYCLIA [id number] [place] [id number] [place] ED NOTEon 06-16-2022 ED NOTE HNO ID: [id number] Author: Adela Cortez RN Service: Emergency Medicine Author Type: Registered Nurse Type: ED Notes Filed: 06/16/2022 11:27 AM Note Text: Pts aptt is >139. Nongram states to hold dose and let MD know. Vascular resident made aware, MD ordered to hold dose x1 hour and then redraw aptt. Normal [facility] ED NOTE HNO ID: [id number] Author: Nancy Scott RN Service: Emergency Medicine Author Type: Registered Nurse Type: ED Notes Filed: 06/16/2022 7:13 AM Note Text: CT notified that pt has been moved to new room and is ready for testing [facility] ED NOTE HNO ID: [id number] Author: Marleen Blank RN Service: ? Author Type: Registered Nurse Type: ED Notes Filed: 06/16/2022 6:59 AM Note Text: Bed: 19-ED Expected date: Expected time: Means of arrival: Comments: [facility] ED NOTE HNO ID: [id number] Author: Nancy Scott RN Service: Emergency Medicine Author Type: Registered Nurse Type: ED Notes Filed: 06/16/2022 6:44 AM Note Text: CT delayed due to pt needing to move rooms because of bed bugs. [facility] ED NOTE HNO ID: [id number] Author: Nancy Scott RN Service: Emergency Medicine Author Type: Registered Nurse Type: ED Notes Filed: 06/16/2022 3:09 AM Note Text: CT form faxed, ptt sent [facility] ED NOTE HNO ID: [id number] Author: Nancy Scott RN Service: Emergency Medicine Author Type: Registered Nurse Type: ED Notes Filed: 06/16/2022 3:02 AM Note Text: US notified [facility] ED NOTE HNO ID: [id number] Author: Nancy Scott RN Service: Emergency Medicine Author Type: Registered Nurse Type: ED Notes Filed: 06/16/2022 2:48 AM Note Text: CT notified [facility] ED NOTE HNO ID: [id number] Author: Nancy Scott RN Service: Emergency Medicine Author Type: Registered Nurse Type: ED Notes Filed: 06/16/2022 2:43 AM Note Text: Labs sent [facility] ED NOTE HNO ID: [id number] Author: Davian Chen RN Service: ? Author Type: Registered Nurse Type: ED Notes Filed: 06/16/2022 2:06 AM Note Text: Bed: 15-ED Expected date: Expected time: Means of arrival: Comments: raemsh Barrett [facility] ED PROV NOTEon 06-16-2022 ED PROV NOTE HNO ID: [id number] Author: Vanessa Trevizo DO Service: Emergency Medicine [...] Temp Temp src Resp SpO2 Weight Height 06/16/221 06/16/2221006/16/22 0811 -- 06/16/22 02106/16/22 0211 06/16/22 021 -- 91/65 (!) 130 36.5 ?C (97.7 [...] (more content not included)... Normal [facility] ED PROV NOTE HNO ID: [id number] Author: Vanessa Trevizo DO Service: Emergency Medicine Author Type: Physician Type: ED Provider Notes Filed: 06/16/2022 3:23 AM Note Text: TEACHING ATTESTATION: I personally saw and examined the patient. I reviewed the resident?s note. I agree with the resident?s assessment and plan unless otherwise noted. This is an 81-year-old female seen with Dr. Torres, does not physician, please see her note for [...] Trevizo DO 06/16/22 0323 Normal [facility] EKGon 06-16-2022 Electrocardiogram Ventricular Rate : 1 13 BPM Atrial Rate : 122 BPM QRS Duration : 100 ms Q-T Interval : 282 ms QTC Calculation(Bazett) : 386 ms Calculated R [place] : 46 degrees Calculated T [place] : -40 degrees ATRIAL FIBRILLATION WITH RAPID VENTRICULAR RESPONSE ABNORMAL QRS-T ANGLE, CONSIDER PRIMARY T WAVE ABNORMALITY ABNORMAL ECG NO PREVIOUS ECGS AVAILABLE Confirmed by MD LEONE CAROL ([id number]) on 06/16/2022 6:43:12 PM NAME : MEL GUADARRAMA PID : [id number] : 1940 Gender : Female Race : ORD : Procedure Date : Jun 16 2022 07:37:07 Edit Date : Jun 16 2022 18:43:17 Diagnosis: ATRIAL FIBRILLATION WITH RAPID VENTRICULAR RESPONSE ABNORMAL QRS-T ANGLE, CONSIDER PRIMARY T WAVE ABNORMALITY ABNORMAL ECG NO PREVIOUS ECGS AVAILABLE Confirmed by MD LEONE CAROL ([id number]) on 06/16/2022 6:43:12 PM Test Reason : Location : 4 : [place] [address] Overread By : MD LEONE CAROL Edited By : MD LEONE CAROL Referred By : , Acquired by : PATRICIA MOE [facility] HIGH SENSITIVITY TROPONIN T (INITIAL)on 06-16-2022 HIGH SENSITIVITY CHRISTOPHER 34 ng/L High <12 [facility] Comment on above: Order Comment: Rhina mason Type: BLOOD SPECIMENOrdering Facility: [facility] Address: [address] [place] [address] Result Comment: When assessing risk for acute [...] MACE. Performed By: #### 3 2355-0 #### [facility] CLIA [id number] [address] STATES OF [facility] HIGH SENSITIVITY TROPONIN T (SECOND)on 06-16-2022 HIGH SENSITIVITY CHRISTOPHER 28 ng/L High <12 [facility] Comment on above: Order Comment: Rhina mason Type: BLOOD SPECIMENOrdering Facility: [facility] Address: [address] [place] [address] Result Comment: When assessing risk for acute [...] 30 day MACE. Performed By: #### L [id number] ####[facility] LABORATORYCLIA [id number] [place] [address] [facility] HIGH SENSITIVITY TROPONIN T (THIRD) 3 HRS AFTER INITIALon 06-16-2022 HIGH SENSITIVITY CHRISTOPHER 23 ng/L High <12 [facility] Comment on above: Order Comment: Speci men Type: BLOOD SPECIMENOrdering Facility: [facility] Address: [address] [place] [phone] Result Comment: When assessing risk for acute [...] 30 day MACE. Performed By: #### L [id number] ####[facility] LABORATORYCLIA [id number] [place] [address] [facility] HISTORY PHYSICALon HISTORY PHYSICAL HNO ID: [id number] Author: Kristen Jones APRN.CNP Service: Hospital Medicine Author Type: Nurse Practitioner Type: HANDP Filed: 06/16/2022 1:27 PM Note Text: DEPARTMENT OF HOSPITAL MEDICINE HISTORY AND PHYSICAL EXAM SERVICE DATE: 06/16/2022 SERVICE TIME: 12:02 PM Primary Care Physician: Dr. Evans Admitting Provider: Kristen Jones APRN.CNP NIGHT AND WEEKEND COVERAGE: After 7pm, please call cross cover pager #[phone] Subjective CHIEF COMPLAINT: Left leg pain, discoloration [...] this patient has 2 charts. Mel Garcia [id number] and Mel Castillo [id number]. 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 Normal [facility] Magnesium [Mass/Vol] 2.4 mg/dL High 1.7-2.3 [facility] Comment on above: Order Comment: Speci men Type: BLOOD SPECIMENOrdering Facility: [facility] Address: [address] [place] [address] Performed By: #### 3 3959-8, 10505-8, 16260-6, 71162-2 ####[facility] LABORATORYCLIA [id number] [address] [place] NT-proBNP [facility] Natriuretic peptide.B prohormone N-Terminal [Mass/Vol] 4156 pg/mL High <450 [facility] Comment on above: Order Comment: Rhina mason Type: BLOOD SPECIMEN [facility] Address: [address] [place] [address] Performed By: #### T SCR #### [facility] CLIA [id number] [address] [place] NURSING PROGon 06-16-2022 NURSING PROG HNO ID: [id number] Author: Kayden José RN Service: Trauma Author [...] RECEIVING NURSE. NIKKY FRAGA. Normal [facility] PT panel Coag (PPP)on 2021 INR Coag (PPP) [Relative time] 1.1 {INR} Normal 0.9-1.3 [facility] Comment on above: Order Comment: Rhina mason Type: BLOOD SPECIMENOrdering Facility: [facility] Address: [address] [place] [address] Result Comment: Mayra min K Antagonist (VKA) Therapeutic Range: INR 2 to 3 (Target INR of 2.5) Note: For patients treated with VKA drugs, such as warfarin, the [place] [employer] 2012 Guideline recommends [...] YANG, et al. Chest 2012, 141:7S-47S Daren HOYT, et al. [facility] 2017, 70: 252-289 Performed By: #### 3 4528-0, 87351-9 ####[facility] LABORATORYCLIA [id number] [address] [place] PT Coag (PPP) [Time] 11.3 s Normal 9.7-13.0 [facility] Comment on above: Order Comment: Speci isabella Type: BLOOD SPECIMENOrdering Facility: [facility] Address: [address] [place] [address] Performed By: #### 3 4528-0, 79771-6 ####[facility] LABORATORYCLIA [id number] [address] OF [facility] Procalcitonin [facility] 08-16-2021 Procalcitonin [Mass/Vol] 0.19 ng/mL High <0.09 [facility] Comment on above: Order Comment: Rhina mason Type: BLOOD SPECIMEN [facility] Address: [address] [place] [address] Result Comment: For a guided interpretation of test results, please visit the Change in Procalcitonin Calculator, [email or web address]. Performed By: #### T SCR #### [facility] CLIA [id number] [address] [place] SARS-CoV-2 RNA Resp Ql OXANA+p robeon 06-16-2022 SARS-CoV-2 (COVID-19) RNA OXANA+probe Ql (Resp) COVID 19 RESULT: SARS-CoV-2 (Agent of COVID-19) Detected by RT-PCR or equivalent method. This test has been authorized by FDA under an Emergency Use Authorization (EUA). Normal [facility] Comment on above: Performed By: #### 9 4500-6 #### [facility] CLIA [id number] [address] [place] [address] [place] US DVT LOWER [...] Torres MD on 0516 via verbal communication. Patient Admitting Clerk: DEVEN Transcribe Date/Time: Jun 16 2022 5:07A Dictated by : SKIP NOEL MD This examination was interpreted and the report reviewed and electronically signed by: SKIP NOEL MD on Jun 16 2022 5:17AM EST [id number] Normal [facility] aPTT PPPon 06-16-2022 aPTT Coag (PPP) [Time] 74.2 s High 23.0-32.4 [facility] Comment on above: Order Comment: Speci men Type: BLOOD SPECIMENOrdering Facility: [facility] Address: [address] [place] [address] Performed By: #### 1 4979-9 ####[facility] LABORATORYCLIA [id number] [address] aPTT Coag (PPP) [Time] 134.7 s High 23.0-32.4 [facility] Comment on above: Order Comment: Speci men Type: BLOOD SPECIMENOrdering Facility: [facility] Address: [address] [place] [address] Performed By: #### 1 4979-9 ####[facility] [id number] [address] STATES [facility] aPTT Coag (PPP) [Time] s High 23.0-32.4 [facility] Comment on above: Order Comment: Speci men Type: BLOOD SPECIMENOrdering Facility: [facility] Address: [address] [place] [address] Performed By: #### 1 4979-9 ####[facility] LABORATORYCLIA [id number] [address] STATES OF [facility] aPTT Coag (PPP) [Time] 21.7 s Low 23.0-32.4 [facility] Comment on above: Order Comment: Speci men Type: BLOOD SPECIMENOrdering Facility: [facility] Address: [address] [place] [address] Performed By: #### 3 4528-0, 06368-7 ####[facility] LABORATORYCLIA [id number] [address] STATES OF [facility] CULTURE AND STAIN - TISSUEon 03-10-2020 CULTURE [...] 0.12 S Rifampin(AGATA) <= 0.5 S Normal [facility] Comment on above: Performed By: #### C XTIS #### [address] [address] [id number] #### C/DAMIÁN #### [place] [address] CR Finger(s) Min 2 Views Rig ht 03-07-2020 CR Finger(s) Min 2 Views Right Patient Name: MEL POP Diagnostic Radiology Exam Date/Time 03/06/2020 10:30:00 EDT Exam CR Finger(s) Min 2 Views Right Ordering Physician MD GUSTAVO, JAYLA Stoll Accession Number [id number] CPT4 Codes 59792 () Reason For Exam pain Report Right [...] was communicated to JAYLA MCMAHAN via the [employer] Critical Result system on 03/07/2020 8:07 PM EDT, Message ID [id number]. Report Dictated on Final Dictating Physician: MD PERRY DIANE Signed Date and Time: 03/07/2020 8:07 pm Signed by: MD PERRY DIANE Transcribed Date and Time: 03/07/2020 8:08 Normal [facility] CULTURE ANAEROBEon 0 CULTURE ANAEROBE CULTURE ANAEROBE --> Status: F No growth of anaerobes at 5 days. STAIN GRAM --> Status: F Few polymorphonuclear cells/lpf. No organisms seen. No organisms seen. Normal [facility] Comment on above: Performed By: #### C XTIS #### [place] [address] [place] [address] [id number] #### C/DAMIÁN #### [address] [address] Vital Signs Date Time Vital Sign Value Performing Clinician Facility 12-24-2024 14:45-0400 Body mass index (BMI) [Ratio] 27.1 kg/m2 Kristyn Blankenship MD Work Phone: [facility] 12-24-2024 14:45-0400 Body weight 69.4 kg Kristyn Blankenship MD Work Phone: [facility] 12-05-2024 10:20-0400 Body height 160 cm Kristyn Blankenship MD Work Phone: [facility] 12-05-2024 10:20-0400 Body mass index (BMI) [Ratio] 29.23 kg/m2 Kristyn Blankenship MD Work Phone: [facility] 12-05-2024 10:20-0400 Body weight 74.84 kg Kristyn Blankenship MD Work Phone: [facility] 12-05-2024 10:20-0400 Diastolic blood pressure 78 mm[Hg] Kristyn Blankenship MD Work Phone: [facility] 12-05-2024 10:20-0400 Heart rate 78 /min Kristyn Blankenship MD Work Phone: [facility] 12-05-2024 10:20-0400 Respiratory rate 18 /min Kristyn Blankenship MD Work Phone: [facility] [place] 12-05-2024 10:20-0400 SaO2% (BldA) [Mass fraction] 94 % Kristyn Blankenship MD Work Phone: [facility] [place] 12-05-2024 10:20-0400 Systolic blood pressure 102 mm[Hg] Kristyn Blankenship MD Work Phone: [facility] 11-22-2024 13:45-0400 Diastolic blood pressure 54 mm[Hg] Kristyn Blankenship MD Work Phone: [facility] [place] 11-22-2024 13:45-0400 Heart rate 58 /min Kristyn Blankenship MD Work Phone: [facility] [place] 11-22-2024 13:45-0400 Respiratory rate 18 /min Kristyn Blankenship MD Work Phone: [facility] [place] 11-22-2024 13:45-0400 SaO2% (BldA) [Mass fraction] 95 % Kristyn Blankenship MD Work Phone: [facility] [place] 11-22-2024 13:45-0400 Systolic blood pressure 139 mm[Hg] Kristyn Blankenship MD Work Phone: [facility] 11-22-2024 13:15-0400 Body temperature 97.11 [degF] Kristyn Blankenship MD Work Phone: [facility] [place] 11-22-2024 08:25-0400 Body height 160 cm Kristyn Blankenship MD Work Phone: [facility] [place] 11-22-2024 08:25-0400 Body mass index (BMI) [Ratio] 29.23 kg/m2 Kristyn Blankenship MD Work Phone: [facility] [place] 11-22-2024 08:25-0400 Body weight 74.84 kg Kristyn Blankenship MD Work Phone: [facility] [place] 11-05-2024 15:42-0400 Body height 160 cm Kristyn Blankenship MD Work Phone: [facility] [place] 11-05-2024 15:42-0400 Body mass index (BMI) [Ratio] 29.23 kg/m2 Kristyn Blankenship MD Work Phone: [facility] [place] 11-05-2024 15:42-0400 Body weight 74.84 kg Kristyn Blankenship MD Work Phone: [facility] [place] 11-05-2024 15:42-0400 Diastolic blood pressure 64 mm[Hg] Kristyn Blankenship MD Work Phone: [facility] [place] 11-05-2024 15:42-0400 Heart rate 65 /min Kristyn Blankenship MD Work Phone: [facility] 11-05-2024 15:42-0400 Respiratory rate 18 /min Kristyn Blankenship MD Work Phone: [facility] [place] 11-05-2024 15:42-0400 SaO2% (BldA) [Mass fraction] 98 % Kristyn Blankenship MD Work Phone: [facility] [place] 11-05-2024 15:42-0400 Systolic blood pressure 122 mm[Hg] Kristyn Blankenship MD Work Phone: [facility] [place] 08-22-2024 10:32-0500 Body height 160 cm Henok Santizo PA-C Work Phone: [facility] 08-22-2024 10:32-0500 Body mass index (BMI) [Ratio] 29.23 kg/m2 Henok Walkeron PA-C Work Phone: [facility] 08-22-2024 10:32-0500 Body weight 74.84 kg Henok Walkeron PA-C Work Phone: [facility] 08-22-2024 10:32-0500 Diastolic blood pressure 62 mm[Hg] Henok Walkeron PA-C Work Phone: [facility] 08-22-2024 10:32-0500 Respiratory rate 18 /min Henok Walkeron PA-C Work Phone: [facility] 08-22-2024 10:32-0500 Systolic blood pressure 104 mm[Hg] Henok Walkeron PA-C Work Phone: [facility] 08-16-2024 07:19-0500 Body temperature 97.59 [degF] Mariana King DO Work Phone: [facility] 08-16-2024 07:19-0500 Diastolic blood pressure 66 mm[Hg] Mariana King DO Work Phone: [facility] 08-16-2024 07:19-0500 Heart rate 85 /min Mariana King DO Work Phone: [facility] 08-16-2024 07:19-0500 Respiratory rate 18 /min Mariana King DO Work Phone: [facility] 08-16-2024 07:19-0500 SaO2% (BldA) [Mass fraction] 94 % Mariana King DO Work Phone: [facility] 08-16-2024 07:19-0500 Systolic blood pressure 135 mm[Hg] Mariana King DO Work Phone: [facility] 08-03-2024 08:32-0500 Body height 162 cm Marianaswati King DO Work Phone: [facility] 08-03-2024 08:32-0500 Body mass index (BMI) [Ratio] 28.58 kg/m2 Mariana King DO Work Phone: [facility] 08-03-2024 08:32-0500 Body weight 75 kg Mariana King DO Work Phone: [facility] 07-07-2024 06:03-0500 Body temperature 97.7 [degF] Wm Alexandrekola DO Work Phone: [facility] 07-07-2024 06:03-0500 Diastolic blood pressure 67 mm[Hg] Wm Aracelirakola DO Work Phone: [facility] 07-07-2024 06:03-0500 Heart rate 69 /min Wm Alexandrekola DO Work Phone: [facility] 07-07-2024 06:03-0500 Respiratory rate 12 /min Wm Alexandrekola DO Work Phone: [facility] 07-07-2024 06:03-0500 SaO2% (BldA) [Mass fraction] 94 % Wm Alexandrekola DO Work Phone: [facility] 07-07-2024 06:03-0500 Systolic blood pressure 149 mm[Hg] Wm Alexandrekola DO Work Phone: [facility] 07-05-2024 10:00-0500 Body height 162.6 cm Wm Alexandrekola DO Work Phone: [facility] 07-05-2024 10:00-0500 Body mass index (BMI) [Ratio] 27.46 kg/m2 Wm Aracelirakola DO Work Phone: [facility] 07-05-2024 10:00-0500 Body weight 72.58 kg Wm Alexandrekola DO Work Phone: [facility] 05-14-2024 15:34-0400 Body height 162.6 cm Jared Evans MD Work Phone: [facility] 05-14-2024 15:34-0400 Body mass index (BMI) [Ratio] 25.23 kg/m2 Jared Evans MD Work Phone: [facility] [place] 05-14-2024 15:34-0400 Body weight 66.68 kg Jared Evans MD Work Phone: [facility] [place] 04-25-2024 13:39-0400 Body height 162.6 cm Henok Hernandez PA-C Work Phone: [facility] [place] 04-25-2024 13:39-0400 Body mass index (BMI) [Ratio] 25.23 kg/m2 Henok Hernandez PA-C Work Phone: [facility] [place] 04-25-2024 13:39-0400 Body weight 66.68 kg Henok Hernandez PA-C Work Phone: [facility] [place] 04-25-2024 13:39-0400 Diastolic blood pressure 66 mm[Hg] Henok Hernandez PA-C Work Phone: [facility] [place] 04-25-2024 13:39-0400 Heart rate 98 /min Henok Hernandez PA-C Work Phone: [facility] [place] 04-25-2024 13:39-0400 Respiratory rate 18 /min Henok Hernandez PA-C Work Phone: [facility] [place] 04-25-2024 13:39-0400 SaO2% (BldA) [Mass fraction] 95 % Henok Hernandez PA-C Work Phone: [facility] [place] 04-25-2024 13:39-0400 Systolic blood pressure 110 mm[Hg] Henok Hernandez PA-C Work Phone: [facility] [place] 04-13-2024 08:04-0400 Heart rate 92 /min Winifred Huertasffey DO Work Phone: [facility] [place] 04-13-2024 07:49-0400 Body temperature 97.2 [degF] Winifred Skiffey DO Work Phone: [facility] 04-13-2024 07:49-0400 Diastolic blood pressure 89 mm[Hg] Winifred Skiffey DO Work Phone: [facility] 04-13-2024 07:49-0400 Respiratory rate 20 /min Winifred Cornell DO Work Phone: [facility] 04-13-2024 07:49-0400 SaO2% (BldA) [Mass fraction] 98 % Winifred Cornell DO Work Phone: [facility] 04-13-2024 07:49-0400 Systolic blood pressure 156 mm[Hg] Winifred Cornell DO Work Phone: [facility] 04-03-2024 17:52-0400 Body height 162.6 cm Winifred Cornell DO Work Phone: [facility] 04-03-2024 17:52-0400 Body mass index (BMI) [Ratio] 27.38 kg/m2 Winifred Cornell DO Work Phone: [facility] 04-03-2024 17:52-0400 Body weight 72.35 kg Winifred Cornell DO Work Phone: [facility] 07-27-2023 14:23-0500 Body height 162.6 cm Ming Weinberg MD Work Phone: [facility] 07-27-2023 14:23-0500 Body mass index (BMI) [Ratio] 27.29 kg/m2 Ming Weinberg MD Work Phone: [facility] 07-27-2023 14:23-0500 Body weight 72.12 kg Ming Weinberg MD Work Phone: [facility] [place] 05-14-2022 15:01-0400 Diastolic blood pressure 84 mm[Hg] Jared Velazquez PA-C Work Phone: [facility] 05-14-2022 15:01-0400 Systolic blood pressure 154 mm[Hg] Jared Velazquez PA-C Work Phone: [facility] 05-14-2022 14:32-0400 Body height 162.6 cm Jared Velazquez PA-C Work Phone: [facility] 05-14-2022 14:32-0400 Body weight 72.58 kg Jared Velazquez PA-C Work Phone: [facility] 05-14-2022 14:32-0400 Heart rate 71 /min Jared Velazquez PA-C Work Phone: [facility] 05-14-2022 14:32-0400 Respiratory rate 16 /min Jared Velazquez PA-C Work Phone: [facility] 05-14-2022 14:32-0400 SaO2% (BldA) [Mass fraction] 98 % Jared Velazquez PA-C Work Phone: [facility] 03-07-2020 09:57-0400 Body Temperature 98.71 [degF] [facility] [place] 03-07-2020 09:57-0400 BP Diastolic 64 mm[Hg] [facility] [place] [facility] [place] 03-07-2020 09:57-0400 BP Systolic 161 mm[Hg] [facility] [place] 03-07-2020 09:57-0400 Pulse (Heart Rate) 77 /min [facility] [place] 03-07-2020 09:57-0400 Pulse Oximetry 96 % [facility]la [facility] [place] [facility] [place] 03-07-2020 08:32-0400 Respiratory Rate 14 /min [facility] [place] 02-08-2020 20:50-0400 Body Temperature 97.5 [degF] [facility] [place] 02-08-2020 20:50-0400 BP Diastolic 81 mm[Hg] [facility]uri [facility] [place] 02-08-2020 20:50-0400 BP Systolic 193 mm[Hg] [facility] [place] 02-08-2020 20:50-0400 Pulse (Heart Rate) 68 /min [facility] [place] 02-08-2020 20:50-0400 Pulse Oximetry 97 % Maryuri [facility] [place] [facility] [place] 02-08-2020 20:50-0400 [facility] [place] [facility] Encounter Date Encounter Type Care Provider Facility Start: 01-28-2025 ambulatory Megan EVERETT Faci lity:[facility] Start: 01-25-2025 ambulatory Megan EVERETT Faci lity:[facility] Start: 01-23-2025 ambulatory Megan EVERETT Faci lity:[facility] Start: 01-22-2025 ambulatory Megan Montoya OLS Faci lity:[facility] Start: 01-21-2025 ambulatory Megan Montoya OLS Faci lity:[facility] Start: 01-17-2025 ambulatory Megan Montoya OLS Faci lity:[facility] Start: 01-16-2025 ambulatory Megan Montoya OLS Faci lity:[facility] Start: 01-15-2025 ambulatory Megan Montoya OLS Faci lity:[facility] Start: 01-07-2025 ambulatory Megan Montoya OLS Faci lity:[facility] Start: 01-02-2025 End: 01-02-2025 Orders Only Namrata Christensen [facility] Comment on above: 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) Right retinal detach ment (Primary Dx); Hemorrhagic choroidal detachment of right eye; Pseudophakia, right eye Start: 12-24-2024 End: 12-24-2024 ambulatory KRISTYN BLANKENSHIP [facility] Start: 12-24-2024 End: 12-24-2024 Office outpatient visit 15 minutes Kristyn Blankenship MD Work Phone: [facility] [place] Comment on above: Aftercare following surgery of the circulatory system (Primary Dx); PAD (peripheral artery disease) (HCC) Start: 12-13-2024 End: 12-13-2024 ambulatory MEGAN LINDSAY [facility] Start: 12-13-2024 End: 12-13-2024 Subsequent hospital visit by physician Kristyn Blankenship MD Work Phone: [facility] V[facility] Lab Comment on above: Skin ulcer of toe of right foot, limited to breakdown of skin (HCC); PAD (peripheral artery disease) (HCC); Aftercare following surgery of the circulatory system Start: 12-05-2024 End: 12-05-2024 ambulatory [facility] Start: 12-05-2024 End: 12-05-2024 Office outpatient visit 10 minutes Kristyn [facility]hip MD [facility] [place] Comment on above: Skin ulcer of toe of right foot, limited to breakdown of skin (HCC) (Primary Dx); PAD (peripheral artery disease) (HCC); Aftercare following surgery of the circulatory system Start: 11-22-2024 End: 11-22-2024 ambulatory [facility] Start: 11-22-2024 End: 11-22-2024 Subsequent hospital visit by physician Kristyn Blankenship MD Work Phone: [facility] Start: 11-15-2024 End: 11-15-2024 ambulatory Megan EVERETT Facility:[facility] Start: 11-09-2024 End: 11-13-2024 ambulatory Henok Santizo PA-C Work Phone: [facility] [employer] [place] Comment on above: 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) (Primary Dx) Pre-op evaluation (P rimary Dx) Start: 11-09-2024 End: 11-13-2024 Preprocedural examination done Henok ARIZMENDI[facility] Work [facility]: Start: 11-05-2024 End: 11-05-2024 ambulatory [facility] Start: 11-05-2024 End: 11-05-2024 Office outpatient visit 25 minutes Kristyn Blankenship MD [facility] [place] Comment on above: PAD (peripheral aidee ry disease) (HCC) (Primary Dx); Skin ulcer of toe of right foot, limited to breakdown of skin (HCC) Start: 10-08-2024 End: 10-08-2024 ambulatory Megan EVERETT [facility] Work Phone: Start: 10-08-2024 End: 10-08-2024 Departed Referred Megan Montoya [facility] Start: 10-08-2024 Registered Referred Megan BISWAS Start: 10-08-2024 End: 10-08-2024 ambulatory Megan EVERETT Facility:[facility] Start: 10-01-2024 End: 10-01-2024 Patient encounter procedure Savana Lopez MD Work Phone: Ophthalmology Comment on above: 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); Right retinal detachment; Postoperative eye state; Pseudophakia, right eye; Subluxation of right lens Start: 10-01-2024 End: 10-01-2024 ambulatory SAVANA LOPEZ Facility:[facility] Start: 09-17-2024 End: 09-17-2024 ambulatory Megan EVERETT [facility] Work Phone: Start: 09-17-2024 End: 09-17-2024 Departed Referred Megan BISWAS Start: 09-17-2024 Registered Referred Megan BISWAS Start: 09-17-2024 End: 09-17-2024 ambulatory Megan EVERETT Facility:[facility] Start: 09-10-2024 End: 09-10-2024 ambulatory Megan EVERETT [facility] Work Phone: Start: 09-10-2024 End: 09-10-2024 Departed Referred Megan BISWAS Start: 09-10-2024 Registered Referred Megan BISWAS Start: 09-10-2024 End: 09-10-2024 ambulatory Megan EVERETT Facility:[facility] Start: 09-05-2024 End: 09-05-2024 ambulatory SAVANA LOPEZ Facility:[facility] Start: 09-05-2024 End: 09-05-2024 Patient encounter procedure Savana Lopez MD Work Phone: Ophthalmology Comment on above: Postoperative eye st ate; Hemorrhagic choroidal detachment of right eye; Pseudophakia, right eye; Subluxation of right lens Start: 09-03-2024 End: 09-03-2024 ambulatory Megan EVERETT [facility] Work Phone: Start: 09-03-2024 End: 09-03-2024 Departed Referred Megan BISWAS Start: 09-03-2024 Registered Referred Megan BISWAS Start: 09-03-2024 End: 09-03-2024 ambulatory Megan EVERETT Facility:[facility] Start: 08-22-2024 End: 08-22-2024 ambulatory [facility] Start: 08-22-2024 End: 08-22-2024 Office outpatient visit 15 minutes Henok Santizo PA-C Work Phone: [facility] [place] Comment on above: Acute deep vein thro mbosis (DVT) of iliac vein of right lower extremity (HCC) (Primary Dx); PAD (peripheral artery disease) (HCC) Start: 08-20-2024 End: 08-20-2024 ambulatory Megan EVERETT [facility] Work Phone: Start: 08-20-2024 End: 08-20-2024 Departed Referred Megan BISWAS Start: 08-20-2024 End: 08-20-2024 ambulatory Megan EVERETT Facility:[facility] Start: 08-03-2024 End: 08-03-2024 Subsequent hospital visit by physician [facility] Exam Room [address] [facility] [address] Comment on above: Arrived Start: 08-03-2024 End: 08-16-2024 ambulatory [facility] Start: 08-03-2024 End: 08-16-2024 Emergency department patient visit Mariana Eduardo GARZA Work Phone: [facility] Comment on above: Aspiration pneumonit is (CMS/HCC) (HCC) (Primary Dx); Vomiting and diarrhea; LORENZA (acute kidney injury) (HCC) Start: 08-01-2024 End: 08-01-2024 ambulatory SAVANA LOPEZ Facility:[facility] Start: 08-01-2024 End: 08-01-2024 Patient encounter [...] Start: 07-27-2024 ambulatory SAVANA A MAMMO Facility: [facility] Start: 07-23-2024 End: 07-23-2024 ambulatory SAVANA A MAMMO Facility:[facility] Start: 07-23-2024 End: 07-23-2024 Patient encounter [...] 07-12-2024 Evaluation and management of inpatient SELF Facility:[facility] Start: 07-12-2024 End: 07-12-2024 Orders Only [...] 07-09-2024 Evaluation and management of inpatient SELF Facility:[facility] Start: 07-09-2024 End: 07-09-2024 Unlisted evaluation [...] 07-18-2024 Evaluation and management of inpatient RED GRESHAMNTIRE Facility:[facility] Start: 07-07-2024 Emergency department patient visit PROVIDER NOT IN SYSTEM Facility:[facility] Start: 07-06-2024 End: 07-06-2024 Telephone encounter Ryan Elizondo MD Work Phone: Ophthalmology Start: 07-05-2024 End: 07-07-2024 ambulatory [facility] Start: 07-05-2024 End: 07-07-2024 Emergency department patient visit Wm Des DO Work Phone: [facility] PCU 3W Comment on above: Vision loss of right eye (Primary Dx); Acute intractable headache, unspecified headache type; Visual disturbance, subjective Start: 06-19-2024 End: 07-03-2024 ambulatory DEVIKA LEUNG Facility:[facility] Start: 06-19-2024 End: 07-03-2024 Subsequent hospital visit by physician Devika Leung DO Work Phone: [facility] Comment on above: [I63.9] - Cerebral i nfarction Start: 06-10-2024 End: 06-19-2024 Evaluation and management of inpatient TORSTEN SILVA Facility:[facility] Start: 05-22-2024 End: 05-22-2024 ambulatory [facility] Start: 05-21-2024 End: 05-21-2024 ambulatory [facility] Start: 05-21-2024 End: 05-21-2024 Anticoagulant drug monitoring Harmony Grey [facility] Work Phone: [facility] Comment on above: Atrial fibrillation, unspecified type (HCC); Acute venous embolism and thrombosis of deep vessels of proximal end of right lower extremity (HCC) Start: 05-14-2024 End: 05-14-2024 Subsequent hospital visit by physician Jared Evans MD Work Phone: [facility] Non-Invasive Cardiology Comment on above: Paroxysmal atrial fi brillation (HCC) Start: 05-14-2024 End: 05-14-2024 ambulatory [facility] Start: 05-09-2024 End: 05-09-2024 ambulatory [facility] Start: 05-09-2024 End: 05-09-2024 Anticoagulant drug monitoring Patty Duggan [facility] Work Phone: [facility] Comment on above: Atrial fibrillation, unspecified type (HCC); Acute venous embolism and thrombosis of deep vessels of proximal end of right lower extremity (HCC) Start: 05-01-2024 End: 05-01-2024 [facility] Start: 05-01-2024 End: 05-01-2024 Anticoagulant drug monitoring Won Tipton RN [facility] Comment on above: Atrial fibrillation, unspecified type ([facility]); Acute venous embolism and thrombosis of deep vessels of proximal end of right lower extremity (HCC) Start: 04-27-2024 End: 04-27-2024 Refill Phyllis Aguilera RN Work Phone: [facility] Comment on above: Deep vein thrombosis (DVT) of lower extremity, unspecified chronicity, unspecified laterality, unspecified vein (HCC); Atrial fibrillation, unspecified type (HCC); Acute venous embolism and thrombosis of deep vessels of proximal end of right lower extremity (HCC) Start: 04-25-2024 End: 04-25-2024 Office outpatient visit 15 minutes Henok Hernandez PA-C Work Phone: [facility] [place] Comment on above: Acute deep vein thro mbosis (DVT) of iliac vein of right lower extremity (HCC) (Primary Dx); PAD (peripheral artery disease) (HCC) Start: 04-25-2024 End: 04-25-2024 ambulatory HENOK SANTIZO [facility] Start: 04-23-2024 End: 04-23-2024 ambulatory JARED EVANS [facility] Start: 04-20-2024 End: 07-20-2024 Transcribe Orders Jared Evans MD Work Phone: [facility] Central Scheduling Comment on above: Paroxysmal atrial fi brillation (HCC) (Primary Dx) Start: 04-19-2024 End: 04-19-2024 ambulatory JARED EVANS [facility] Start: 04-19-2024 End: 04-19-2024 Anticoagulant drug monitoring Marybeth Rahman [facility] Anticoagulation Management Service Comment on above: Atrial fibrillation, unspecified type (HCC); Acute venous embolism and thrombosis of deep vessels of proximal end of right lower extremity (HCC) Start: 04-16-2024 End: 04-16-2024 ambulatory ANTHONY YEE [facility] Start: 04-14-2024 End: 04-14-2024 Anticoagulant drug monitoring Ulices JacobD [facility] Comment on above: Deep vein thrombosis (DVT) of lower extremity, unspecified chronicity, unspecified laterality, unspecified vein (HCC) (Primary Dx) Start: 04-03-2024 End: 04-13-2024 Evaluation and management of inpatient Winifred Cornell DO Work Phone: [facility] Medical Unit 4N Comment on above: Ischemic leg (Primar y Dx); Right leg pain; Peripheral arterial disease (HCC); Right leg weakness; Atrial fibrillation, unspecified type (HCC) Start: 07-27-2023 End: 07-27-2023 Office outpatient new 30 minutes Ming Weinberg MD Work Phone: [facility] Comment on above: 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) Start: 06-15-2023 End: 06-15-2023 Subsequent hospital visit by physician Jared Evans MD Work Phone: [facility] MRI Comment on above: Abnormal findings on diagnostic imaging of other specified body structures; Pain in left leg Start: 06-01-2023 Transcribe Orders Jared Evans MD Work Phone: [facility] Central Scheduling Comment on above: Abnormal findings on diagnostic imaging of other specified body structures (Primary Dx); Pain in left leg Start: 05-24-2023 End: 05-24-2023 Subsequent hospital visit by physician Jared Evans MD Work Phone: [facility] US Comment on above: Other specified soft tissue disorders Start: 05-23-2023 Transcribe Orders Jared Evans MD Work Phone: [facility] Comment on above: Other specified soft tissue disorders (Primary Dx) Start: 03-08-2023 End: 03-08-2023 Subsequent hospital visit by physician Jared Evans MD Work Phone: [facility] CT Comment on above: Localized swelling, mass and lump, neck Start: 02-28-2023 Transcribe Orders Jared [facility] MD [facility] Comment on above: Localized swelling, mass and lump, neck (Primary Dx) Start: 02-22-2023 End: 02-22-2023 Subsequent hospital visit by physician Jared Evans MD Work Phone: [facility] Comment on above: Localized swelling, mass and lump, neck Start: 02-17-2023 Transcribe Orders Jared Evans MD Work Phone: [facility] Comment on above: Localized swelling, mass and lump, neck (Primary Dx) Start: 07-06-2022 Telephone encounter Inés Tubbs RN NOC Comment on above: Follow Up Phone Call (All Clear) Start: 06-21-2022 End: 06-21-2022 Evaluation and management of inpatient SIM ELIZABETH Facility:[facility] Start: 06-19-2022 ambulatory Tamara Elise [facility] [place] [address] CARD/HF/PD Start: 06-16-2022 End: 06-29-2022 Evaluation and management of inpatient BERNIE MANE Facility:[facility] Start: 05-27-2022 Telephone encounter Jared pennington [...] visit by physician Jayla Mcmahan Work Phone: [facility] Surgery Comment on above: S/P surgical amputat ion of finger, right (Primary Dx); Finger osteomyelitis, right (HCC) Start: 03-06-2020 End: 03-06-2020 Subsequent hospital visit by physician Jayla Mcmahan Work Phone: [facility] [employer] [facility] Start: 02-08-2020 End: 02-08-2020 Emergency department patient visit Maryuri King [facility] Comment on above: Felon of finger (Alice [...] panel Shivani Dimas PA-C Work Phone: Start: 08-04-2024 Comprehensive metabo lic panel Shivani Dimas PA-C Work Phone: Start: 08-03-2024 Iadna-dna/rna gi pth gn multiplex probe tq 12- Shivani ARIZMENDI-C Work Phone: Start: 08-03-2024 Basic metabolic pane l calcium total Shivani ARIZMENDI-C Work Phone: Start: 08-03-2024 Basic metabolic pane l calcium ionized Marianasagar King DO Work Phone: Start: 08-03-2024 Ct abdomen & pelvis w/o contrast material Mariana King DO Work Phone: Start: 08-03-2024 Radiologic exam ches t single view Mariana King DO Work Phone: Start: 08-03-2024 Comprehensive metabo lic panel Marianasagar Kign DO Work Phone: Start: 08-03-2024 Manual differential performed [Presence] in Blood Marianasagar King DO Work Phone: Start: 08-03-2024 SARS-COV-2, FLU A/B, AND RSV COMBO Marianasagar King DO Work Phone: Start: 07-23-2024 Ophthalmic [...] [Units/v olume] in Serum or Plasma Wm Nunes DO Work Phone: Start: 05-22-2024 Follow-up visit [...] 04-09-2024 Thromboplastin time partial plasma/whole blood Pratibha Dodie Avelar DO Work Phone: Start: 04-09-2024 Basic metabolic pane l calcium total Robert Vigil MD Work Phone: Start: 04-08-2024 Thromboplastin time partial plasma/whole blood Pratibha Stoll Valentino DO Work Phone: Start: 04-08-2024 Thromboplastin time partial plasma/whole blood Pratibha Sotll Valentino DO Work Phone: Start: 04-08-2024 Basic metabolic pane l calcium total Robert Vigil MD Work Phone: Start: 04-07-2024 Thromboplastin time partial plasma/whole blood Pratibha Stoll Valentino DO Work Phone: Start: 04-07-2024 Basic metabolic pane l calcium total Robert Vigil MD Work Phone: Start: 04-06-2024 Thromboplastin time partial plasma/whole blood Pratibha Dodie Avelar DO Work Phone: Start: 04-06-2024 FL GUIDANCE OR USE O NLY - NON-RESULTABLE Kristyn Blankenship MD Work Phone: Start: 04-06-2024 Antibody screen JARED EVANS Comment on above: Performed By: #### L [id number] ####Insurance Billing Specialist: VELMA VALADEZ ([phone])[facility] ([facility])[address] [place] [address] Start: 04-06-2024 Blood typing serologic abo Kristyn Blankenship MD Work Phone: Start: 04-06-2024 End: 04-06-2024 Prq transluminal mechanical thrombectomy vein Kristyn Blankenship MD Work Phone: Start: 04-06-2024 Basic metabolic pane l calcium total Robert Vigil MD Work Phone: Start: 04-05-2024 Prothrombin time Ryan Valdez MD Work Phone: Start: 04-05-2024 Thromboplastin time partial plasma/whole blood Pratibha Merrilljujurobson DO Work Phone: Start: 04-05-2024 End: 04-05-2024 Basic metabolic panel calcium total Robert Vigil MD Work Phone: Start: 04-04-2024 Thromboplastin time partial plasma/whole blood Pratibha Merrilljujurobson DO Work Phone: Start: 04-04-2024 Thromboplastin time partial plasma/whole blood Pratibha Merrillevonstas DO Work Phone: Start: 04-04-2024 Non-invasive physiol ogic study extremity 3 carolyn Naik MD Work Phone: Start: 04-04-2024 Dup-scan xtr veins c omplete bilateral study Pratibha Avelar DO Work Phone: Start: 04-04-2024 Basic metabolic pane l calcium total Pratibha Merrillevonstas DO Work Phone: Start: 04-04-2024 Thromboplastin time partial plasma/whole blood Pratibha Merrillevonstas DO Work Phone: Start: 04-03-2024 Thromboplastin time partial plasma/whole blood Pratibha Stoll Lollyomarevonstas DO Work Phone: Start: 04-03-2024 Cta abdl aorta&bi il iofem w/contrast&postp Bernie Cutler V[employer]ATIONAL EDUCATION PROFESSIONAL - [employer] Work Phone: Start: 04-03-2024 Ct head/brain w/o co ntrast material Bernie Cutler VOCATIONAL EDUCATION PROFESSIONAL - [employer] Work Phone: Start: 04-03-2024 Comprehensive metabo lic panel Bernie Cutler [employer]ATIONAL EDUCATION PROFESSIONAL - [employer] Work Phone: Start: 04-03-2024 Ecg routine ecg w/le ast 12 lds trcg only w/o i&r Bernie Cutler [employer]OCATIONAL EDUCATION PROFESSIONAL - [employer] Work Phone: Start: 06-15-2023 Mri lower extrem oth /thn jt w/o & w/contr matr Jared Evans MD Work Phone: Start: 05-24-2023 Dup-scan xtr veins unilateral/limited study Jared Evans MD Work Phone: Start: 06-21-2022 Antibody screen BERNIE MANE Comment on above: Order Comment: Speci men Type: BLOOD SPECIMEN Ordering Facility: [facility] Address: [address] [place] [id number] Performed By: #### T SCR #### [facility] CLIA [id number] [address] Start: 03-07-2020 OPERATIVE REPORT 3m Sca nning Start: 02-08-2020 INCISION AND DRAINAGE Jose Mora Work Phone: Plan of Treatment Date Care Activity Detail Author Start: 02-15-2029 DTaP/Tdap/Td vaccine (2 - Td) DTaP/Tdap/Td vaccine (2 - Td) [place] Start: 02-15-2029 DTaP/Tdap/Td Vaccines (2 - Td or Tdap) DTaP/Tdap/Td Vaccines (2 - Td or Tdap) [facility] Start: 02-15-2029 Urine microalbumin profile DTaP,Tdap,Td Vaccine (2 - Td or Tdap) [facility] Start: 08-05-2027 Diabetes Screening Diabetes Screening [facility] Start: 07-07-2027 Diabetes Screening Diabetes Screening [facility] Start: 07-06-2027 Diabetes Screening Diabetes Screening [facility] Start: 06-21-2027 Diabetes Screening Diabetes Screening 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, right eye Subluxation of right lens Expected: 08/16/2025, Expires: 01/23/2026 [facility] Work Phone: Comment on above: Expected: 08/16/2025, Expires: Start: 08-05-2025 Diabetes: Estimated Glomerular Filtration Rate for Kidney Health Diabetes: Estimated Glomerular Filtration Rate for Kidney Health [facility] Start: 08-04-2025 Diabetes: Estimated Glomerular Filtration Rate for Kidney Health Diabetes: Estimated Glomerular Filtration Rate for Kidney Health [facility] Start: 07-31-2025 End: 01-07-2026 Right eye Photo documentation FUNDUS PHOTOS OD (RIGHT EYE) [facility] Imaging Routine Postoperative eye state 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 Start: 06-10-2025 Thyroid stimulating hormone measurement TSH Level [facility] Start: 05-18-2025 DIABETES SCREEN DIABETES SCREEN [facility] Start: 03-18-2025 Influenza vaccination Influenza Vaccine (Season Ended) [facility] Start: 01-02-2025 End: 01-02-2025 Patient encounter procedure 01/02/2025 9:45 AM EDT Office Visit [facility] [address] [place], [place] [phone] Savana Lopez MD [address] [place] [address] *3 M, DFE Ophthalmology Comment on above: *3 M, DFE Start: 12-24-2024 End: 12-24-2024 Patient encounter procedure 12/24/2024 2:30 PM EDT Office Visit [facility] [address] [place] [phone] Kristyn Blankenship MD [address] [place], [place] [phone] [facility] Start: 12-05-2024 End: 12-05-2024 Patient encounter procedure 12/05/2024 10:00 AM EDT Office Visit [facility] [place] [address] [place] [phone] Kristyn Blankenship MD [address] [place] [phone] [facility] Start: 11-22-2024 End: 11-22-2024 Admission to same day surgery center 11/22/2024 9:30 AM EDT - 11/22/2024 11:30 AM EDT Surgery [facility] MAIN OR [address] [place] [address] Kristyn Blankenship MD [address] [place] [address] [phone] AORTOILIAC ANGIOGRAPHY, RIGHT LOWER EXTREMITY ANGIOGRAPHY WITH RUNOFF, POSSIBLE SUPERFICIAL FEMORAL ARTERY/POPLITEAL/TIBIAL ANGIOPLASTY/STENTING [32521 (CPT )] [facility] MAIN OR Comment on above: AORTOILIAC ANGIOGRAPHY, RIGHT LOWER EXTR EMITY ANGIOGRAPHY WITH RUNOFF, POSSIBLE SUPERFICIAL FEMORAL ARTERY/POPLITEAL/TIBIAL ANGIOPLASTY/STENTING [97839 (CPT )] Start: 11-22-2024 End: 11-22-2024 Angiography extremity unilateral rs&i ANGIOGRAM, EXTREMITY Skin ulcer of right great toe (HCC) Critical limb ischemia of right lower extremity (HCC) 11/22/2024 9:30 AM EDT [facility] Operating Room Start: 11-22-2024 Subsequent hospital visit by physician 11/22/2024 9:30 AM EDT Hospital Encounter [facility] OR [address] [place] [address] Kristyn Blankenship MD [address] [place] [phone] [facility] Start: 11-20-2024 Subsequent hospital visit by physician 11/20/2024 Hospital Encounter [facility] [address] [place] [address] Kristyn Blankenship MD [address] [place] [phone] [facility] OR Start: 11-13-2024 End: 11-13-2025 Basic metabolic 1998 panel - Serum or Plasma Basic metabolic panel Lab Routine Pre-op evaluation Expected: 11/13/2024 (Approximate), Expires: 11/13/2025 [facility] Comment on above: Expected: 11/13/2024 (Approximate), Expi res: 11/13/2025 Start: 11-13-2024 End: 11-13-2025 CBC W Auto Differential panel - Blood CBC auto differential Lab Routine Pre-op evaluation Expected: 11/13/2024 (Approximate), Expires: 11/13/2025 [facility] Work Phone: Comment on above: Expected: 11/13/2024 (Approximate), Expi res: 11/13/2025 Start: 10-01-2024 End: 10-01-2024 Patient encounter procedure 10/01/2024 10:30 AM EDT Office Visit [facility]mology [address] [address] Savana Lopez MD [address] [place], [place] [phone] 26 Day F/U ~ DFE OD bscan OD . Ophthalmology Comment on above: 26 Day F/U ~ DFE OD bscan OD . Start: 08-22-2024 End: 08-22-2024 Patient encounter procedure 08/22/2024 10:30 AM EST Office Visit [facility] [place] [address] [place] [phone] Henok Santizo PA-C [address] [place], [place] [phone] [facility] Start: 08-15-2024 End: 08-15-2024 Patient encounter procedure 08/15/2024 9:45 AM EST Office Visit [facility] [address] [place] [address] Savana Lopez MD [address] [place] [address] *1 month post op Ophthalmology Comment on above: *1 month post op Start: 08-06-2024 End: 08-06-2024 Patient encounter procedure 08/06/2024 11:00 AM EST Office Visit [facility] [place] [address] [place] [phone] Henok Santizo PA-C [address] [place] [address] [facility] Start: 08-01-2024 End: 08-01-2024 Patient encounter procedure Ophthalmology Comment on above: *1 week post op Start: 07-31-2024 End: 07-31-2024 Patient encounter procedure [facility] [place] Start: 07-27-2024 End: 07-27-2024 Admission to same day surgery center 07/27/2024 10:50 AM EST - 07/27/2024 12:40 PM EST Surgery Ophthalmology [address] [address] Savana Lopez MD [address] [place] [address] VITRECTOMY 25G [facility] PARS PLANA APPROACH W/ REMOVAL OF PRERETINAL CELLULAR MEMBRANE Ophthalmology Comment on above: VITRECTOMY 25G [facility] PARS PLANA APPROACH W/ REMOVAL OF PRERETINAL CELLULAR MEMBRANE Start: 07-27-2024 End: 07-27-2024 Aspiration/release vitreous subretinal/choroidal RELEASE OF VITREOUS, CHOROIDAL FLUID, PARS PLANA APPROACH Hemorrhagic choroidal detachment of right eye 07/27/2024 10:50 AM EST [facility] Start: 07-27-2024 Subsequent hospital visit by physician 07/27/2024 10:50 AM EST Hospital Encounter Ophthalmology [address] [address] Savana Lopez MD [address] [place] [address] 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] Ophthalmology Comment on above: Hemorrhagic choroidal detachment of righ t eye [H31.411] Start: 07-27-2024 End: 07-27-2024 Vitrectomy pars plana remove preretinal membrane VITRECTOMY 25G [facility] PARS PLANA APPROACH W/ REMOVAL OF PRERETINAL CELLULAR MEMBRANE Hemorrhagic choroidal detachment of right eye 07/27/2024 10:50 AM EST [facility] Start: 07-23-2024 End: 07-23-2024 Patient encounter procedure 07/23/2024 10:45 AM EST Office Visit [facility] [address] [address] Savana Lopez MD [address] [place] [address] *1 W, DFE OD/BSCAN OD/OPTOS OD Ophthalmology Comment on above: *1 W, DFE OD/BSCAN OD/OPTOS OD Start: 07-18-2024 Advance Directive Discussion Advance Directive Discussion [facility] Start: 07-18-2024 Medicare Advantage Annual Wellness Visit Medicare Advantage Annual Wellness Visit [facility] Start: 07-16-2024 End: 07-16-2024 Patient encounter procedure Ophthalmology Comment on above: Please schedule this patient with Dr. Jose Angel grey Tuesday07/16/24. Ok to over book per Dr. Lopez *NEW, HEMORRHAGIC CH OROIDALS/MONOCULAR, DFE OD/g SCAN OD ok per DM Start: 07-13-2024 End: 07-13-2024 Aspiration/release vitreous subretinal/choroidal ASPIRATION VITREOUS, CHOROIDAL FLUID, PARS PLANA APPROACH Hemorrhagic choroidal detachment of right eye 07/13/2024 2:04 PM EST [facility] Start: 07-13-2024 End: 07-13-2024 Evaluation and management of inpatient 07/13/2024 2:04 PM EST - 07/13/2024 3:24 PM EST Surgery Ophthalmology [address] [address] Savana Lopez MD [address] [place] [address] ASPIRATION VITREOUS, CHOROIDAL FLUID, PARS PLANA APPROACH Ophthalmology Comment on above: ASPIRATION VITREOUS, CHOROIDAL FLUID, PA RS PLANA APPROACH Start: 06-04-2024 End: 05-21-2025 POCT Prothrombin Time INR ([facility]) POCT Prothrombin Time INR ([facility]) Lab Routine Atrial fibrillation, unspecified type (HCC) Acute venous embolism and thrombosis of deep vessels of proximal end of right lower extremity (HCC) Expected: 06/04/2024, Expires: 05/21/2025 [facility] Work Phone: Comment on above: Expected: 06/04/2024, Expires: Start: 06-04-2024 End: 06-04-2024 Anticoagulant drug monitoring 06/04/2024 1:15 AM EST Anticoagulation - [facility]far[facility] [address] [place] [address] [facility] Start: 05-22-2024 End: 05-22-2024 Patient encounter procedure 05/22/2024 3:00 PM EST Office Visit [facility] Cardiology [facility] [address] [place] [phone] Hermila Padilla MD [address] [place] [address] [facility] [place] Start: 05-22-2024 End: 05-22-2024 Anticoagulant drug monitoring 05/22/2024 12:45 AM EST Anticoagulation - Warfarin Visit [facility] [address] [place] [phone] [facility] Start: 05-14-2024 End: 05-14-2024 Patient encounter procedure 05/14/2024 2:00 PM EDT Appointment [facility] Non-Invasive Cardiology [address] [place] [phone] [facility] Non-Invasive Cardiology Start: 05-08-2024 End: 05-01-2025 POCT Prothrombin Time INR ([facility]) POCT Prothrombin Time INR ([facility]) Lab Routine Atrial fibrillation, unspecified type (HCC) Acute venous embolism and thrombosis of deep vessels of proximal end of right lower extremity (HCC) Expected: 05/08/2024 (Approximate), Expires: 05/01/2025 [facility] Work Phone: Comment on above: Expected: 05/08/2024 (Approximate), Expi res: 05/01/2025 Start: 05-08-2024 End: 05-08-2024 Anticoagulant drug monitoring 05/08/2024 1:30 AM EDT Anticoagulation - Other Visit [facility] [address] [place] [phone] [facility] Start: 05-01-2024 End: 05-01-2024 Anticoagulant drug monitoring 05/01/2024 Anticoagulation - Warfarin Visit [facility] [address] [place] [phone] [facility] Start: 04-23-2024 End: 04-19-2025 POCT Prothrombin Time INR ([facility]) POCT Prothrombin Time INR ([facility]) Lab Routine Atrial fibrillation, unspecified type (HCC) Acute venous embolism and thrombosis of deep vessels of proximal end of right lower extremity (HCC) Expected: 04/23/2024 (Approximate), Expires: 04/19/2025 [facility] Work Phone: Comment on above: Expected: 04/23/2024 (Approximate), Expi res: 04/19/2025 Start: 04-23-2024 End: 04-23-2024 Patient encounter procedure 04/23/2024 9:15 AM EDT Office Visit [facility] [place] [address] [place] [phone] Henok Hernandez PA-C [address] [place] [address] [facility] [place] Start: 04-23-2024 End: 04-23-2024 Anticoagulant drug monitoring 04/23/2024 1:15 AM EDT Anticoagulation - Warfarin Visit [facility] [address] [phone] [facility] Start: 04-19-2024 End: 04-19-2024 Anticoagulant drug monitoring 04/19/2024 1:00 AM EDT Anticoagulation - Warfarin Visit [facility] [address] [place] [phone] [facility] Start: 04-16-2024 End: 04-16-2025 POCT Prothrombin Time INR ([facility]) POCT Prothrombin Time INR ([facility]) Lab Routine Deep vein thrombosis (DVT) of lower extremity, unspecified chronicity, unspecified laterality, unspecified vein (HCC) Expected: 04/16/2024, Expires: 04/16/2025 [facility] Work Phone: Comment on above: Expected: 04/16/2024, Expires: Start: 03-18-2024 Covid-19 Vaccine () Covid-19 Vaccine () [facility] Start: 03-18-2024 Influenza vaccination Influenza Vaccine (#1) [facility] Start: 07-18-2023 Advance Directive Discussion Advance Directive Discussion [facility] Start: 07-18-2023 Medicare Advantage Annual Wellness Visit Medicare Advantage Annual Wellness Visit [facility] Start: 03-18-2023 Influenza vaccination Influenza Vaccine (#1) [facility] Start: 03-18-2022 Influenza vaccination INFLUENZA (#1) [facility] Start: 07-18-2021 ADVANCE DIRECTIVE DISCUSSION ADVANCE DIRECTIVE DISCUSSION [facility] Start: 07-18-2021 DEPRESSION ASSESSMENT DEPRESSION ASSESSMENT [facility] Start: 03-18-2020 Influenza vaccination Flu vaccine (#1) [facility] Start: 03-13-2020 End: 03-13-2020 Office Visit 03/13/2020 Office Visit Orthopedic Surgery Jayla Mcmahan MD [address] [place] [address] [phone] [facility] [place] Start: 03-07-2020 Hospital Encounter 03/07/2020 Hospital Encounter IP Unit Jayla Mcmahan MD [address] [place] [address] [phone] [facility] Dept Start: 03-06-2020 Annual Wellness Visit (AWV) Annual Wellness Visit (AWV) [facility] Start: 04-12-2019 Pneumococcal Vaccine: 50+ Years (2 of 2 - PPSV23) Pneumococcal Vaccine: 50+ Years (2 of 2 - PPSV23) [facility] Start: 04-12-2019 Pneumococcal Vaccine: 65+ Years (2 - PPSV23 if available, else PCV20) Pneumococcal Vaccine: 65+ Years (2 - PPSV23 if available, else PCV20) [facility] Start: 04-12-2019 Pneumococcal Vaccine: 65+ Years (2 - PPSV23 or PCV20) Pneumococcal Vaccine: 65+ Years (2 - PPSV23 or PCV20) [facility] Start: 04-12-2019 Pneumococcal Vaccine: 65+ Years (2 of 2 - PPSV23 or PCV20) Pneumococcal Vaccine: 65+ Years (2 of 2 - PPSV23 or PCV20) [facility] Start: 02-13-2016 DIABETES SCREEN DIABETES SCREEN [facility] Start: 09-24-2014 RSV Immunization for Adults (1 - 1-dose 75+ series) RSV Immunization for Adults (1 - 1-dose 75+ series) [facility] Start: 04-23-2010 DIABETES SCREEN DIABETES SCREEN [facility] Start: 09-24-2004 BONE DENSITY BONE DENSITY [facility] Start: 09-24-2004 Pneumococcal 65+ years Vaccine (2 of 2 - PPSV23) Pneumococcal 65+ years Vaccine (2 of 2 - PPSV23) [place] Start: 09-24-2004 PNEUMOCOCCAL: 65+ (1 - PCV) PNEUMOCOCCAL: 65+ (1 - PCV) [facility] Start: 09-24-2004 Screening for osteoporosis Bone Density Screening [facility] Start: 1999 RSV Immunization aged 60 or older (1 - 1-dose 60+ series) RSV Immunization aged 60 or older (1 - 1-dose 60+ series) [facility] Start: 09-24-1994 Screening for osteoporosis DEXA (modify frequency per FRAX score) [place] Start: 09-24-1989 Shingles Vaccine (1 of 2) Shingles Vaccine (1 of 2) [place] Start: 09-24-1989 SHINGRIX VACCINE (1 of 2) SHINGRIX VACCINE (1 of 2) [facility] Start: 09-24-1989 Zoster Vaccines (1 of 2) Zoster Vaccines (1 of 2) [facility] Start: 09-24-1958 Urine microalbumin profile DTAP,TDAP,TD (1 - Tdap) [facility] Start: 09-24-1958 Zoster Vaccines (1 of 2) Zoster Vaccines (1 of 2) [facility] Start: 09-24-1957 Anxiety Screening Anxiety Screening [facility] Start: 09-24-1957 Depression Screening Depression Screening [facility] Start: 09-24-1957 Diabetes: Urine Albumin-Creatinine Ratio for Kidney Health Diabetes: Urine Albumin-Creatinine Ratio for Kidney Health [facility] Start: 09-24-1957 SPIROMETRY SPIROMETRY [facility] Start: 1951 Depression Monitoring Depression Monitoring [facility] Start: 1951 Depresssion Monitoring Depresssion Monitoring [facility] Start: 09-24-1945 PNEUMOCOCCAL: 65+ (1 - PCV) PNEUMOCOCCAL: 65+ (1 - PCV) [facility] [facility] Start: [birth year]-24-1944 COVID-19 Vaccine (#1) COVID-19 Vaccine (#1) [facility] Start: [birth year]-27-1940 COVID-19 VACCINE (#1) COVID-19 VACCINE (#1) [facility] Start: 1940 Creatinine measurement Creatinine monitoring [facility] [place] Start: 1939 Lipid panel Lipid Panel [facility] Start: 1940 Medicare Advantage Annual Wellness Visit (AWV) Medicare Advantage Annual Wellness Visit (AWV) [facility] Start: 1939 Pot[facility] [place] [place] Start: 1939 Screening for osteoporosis Bone Density Scan [facility] Start: 1940 Thyroid stimulating hormone measurement TSH Level [facility] Angiography extremit y unilateral rs&i AORTOGRAM, WITH SERIALOGRAPHY Critical limb ischemia of right lower extremity (HCC) [facility] Operating Room Aortography abdomina l serialography rs&i AORTOGRAM, WITH SERIALOGRAPHY Critical limb ischemia of right lower extremity (HCC) [facility] Operating Room BSCAN OD (RIGHT EYE) BSCAN OD (R IGHT EYE) OPHT Imaging Routine Hemorrhagic choroidal detachment of right eye 07/09/2024 9:09 AM EST [facility] Work Phone: End: 01-03-2026 BSCAN OD (RIGHT EYE) BSCAN OD (RIGHT EYE) OPHT Imaging Routine Hemorrhagic choroidal detachment of right eye Dislocation of intraocular lens, initial encounter 1 Occurrences starting 07/12/2024 until 01/03/2026 [facility] Work Phone: Comment on above: 1 Occurrences starting 07/12/2024 until 01/03/2026 End: 01-07-2026 BSCAN OD (RIGHT EYE) BSCAN OD (RIGHT EYE) OPHT Imaging Routine Postoperative eye state 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 End: 03-08-2023 CT [facility]: Comment on above: Once for 1 Occurrences starting 03/08/20 until 03/08/2023 Incision/Drainage Incision/Drain age Procedures Routine 02/08/2020 7:17 PM EDT [facility] [place] OUTSIDE PROCEDURE SCAN OUTSIDE P ROCEDURE SCAN Procedures Ordered: 02/21/2023 [facility] Comment on above: Ordered: 02/21/2023 OUTSIDE PROCEDURE SCAN OUTSIDE P ROCEDURE SCAN Procedures Ordered: 03/07/2023 [facility] Comment on above: Ordered: 03/07/2023 OUTSIDE PROCEDURE SCAN OUTSIDE P ROCEDURE SCAN Procedures Ordered: 05/24/2023 [facility] Comment on above: Ordered: 05/24/2023 OUTSIDE PROCEDURE SCAN OUTSIDE P ROCEDURE SCAN Procedures Ordered: 06/14/2023 [facility] Comment on above: Ordered: 06/14/2023 Oxygen therapy [Minimum Data Set] Initiate Oxygen Therapy Protocol Respiratory Care Routine Daily until discontinued starting 03/07/2020 [facility] [place] [place] Comment on above: Daily until discontinued starting 2019 End: 02-22-2023 US Head and neck soft tissue [facility] Work Phone: Comment on above: Once for 1 Occurrences starting 02/23/20 23 until 02/22/2023 End: 03-06-2020 XR FINGER RIGHT (MIN 2 VIEWS) XR FINGER RIGHT (MIN 2 VIEWS) Imaging Routine Once for 1 Occurrences starting 03/06/2020 until 03/06/2020 [place] Comment on above: Once for 1 Occurrences starting 03/06/20 until 03/06/2020 XR FINGER RIGHT (MIN 2 VIEWS) XR FINGER RIGHT (MIN 2 VIEWS) Imaging Routine 03/06/2020 10:20 AM EDT [facility] Immun[facility] Immunization Date Immunization Notes Care Provider Fa [facility] 05-19-2021 Influenza, High-dose Seasonal, Quadrivalent, Preservative Free Ming Weinberg MD Work Phone: [facility] 05-19-2021 influenza virus vaccine, unspecified formulation Jared Evans MD Work Phone: [facility] 02-15-2019 pneumococcal conjuga te vaccine, 13 valent Ming Weinberg MD Work Phone: [facility] 02-15-2019 tetanus toxoid, redu larissa diphtheria toxoid, and acellular pertussis vaccine, adsorbed Ming Weinberg MD Work Phone: [facility] 06-29-2013 influenza, high dose seasonal, preservative-free Ming Weinberg MD Work Phone: [facility] NEGATED: Highlighted row has not occurred!04-05-2024 Seasonal trivalent influenza vaccine, adjuvanted, preservative free Winifred Cornell DO Work Phone: [facility] Comment on above: Deferred: Patient Re fused Payers Date Payer Category Payer Self-pay 2023 Private Health Insurance HUMANA HUMANA MEDICARE SUPPLEMENT [id number] 02/17/2023 [id number] [place] [id number] Commercial [id number] 2017 Medicare [id number] 2017 Medicare (Managed Care) [facility] Address: [address] [place] [address] [id number] 2017 Medicare HMO HUMANA MEDICARE [id number] 2017 Medicare [id number] 1940 Unknown [id number] [id number]. 2.594 Unknown [id number]. [id number] Unknown [id number] Unknown [id number] [id number]. 2.462 Unknown [id number] 2.16.840.1.837214.3.579. 2.462 Unknown [id number] 2.16.840.1.519089.3.579. 2.462 Unknown [id number] 2.16.840.1.011740.3.579. 2.462 Unknown [id number] 2.16.840.1.165767.3.579. 2.462 Unknown [id number] 2.16.840.1.978091.3.579. 2.462 Unknown [id number] 2.16.840.1.533213.3.579. 2.462 Unknown [id number] 2.16840.1.294752.3.579. 2.462 Unknown [id number] 2.16840.1.892758.3.579. 2.462 Unknown [id number] 2.16840.1.563030.3.579. 2.462 Unknown [id number] 2.16840.1.943433.3.579. 2.462 Unknown [id number] 2.16840.1.869483.3.579. 2.462 Unknown [id number] 2.16840.1.876785.3.579. 2.462 Unknown [id number] 2.16840.1.107495.3.579. 2.462 Unknown [id number] 2.16840.1.811670.3.579. 2.462 Unknown [id number] 2.840.1.541806.3.579. 2.462 Unknown [id number] [id number]. 2.462 Social History Date Type Detail Facility Start: 02-08-2020 Tobacco smoking stat [facility] Current some day smoker [place] Start: 02-08-2020 End: 04-20-2024 Alcohol intake Current drinker of alcohol (finding) [place] Start: 02-08-2020 End: 05-17-2022 Alcohol [facility]: 1940 Sex Assigned At Not on file [facility] Start: 05-04-2022 End: 03-08-2023 Exposure to SARS-CoV-2 (event) Not sure [facility] Start: 03-06-2020 End: 07-16-2024 Tobacco smoking status NHIS [facility] Start: 03-06-2020 End: 07-16-2024 Tobacco use and exposure [facility] Tobacco smoking consumption unknown [facility] Start: 05-17-2022 End: 04-04-2024 Tobacco smoking status NMIS Smokes tobacco daily [facility] History of tobacco use Cigarette Smoker C [facility] Start: 05-17-2022 End: 06-11-2024 Cigarettes smoked current (pack per day) - Reported 0.5 [facility] Start: 05-18-2022 History SDOH Financial 5 [facility] Start: 05-18-2022 History SDOH Food Worry 1 [facility] Start: 05-18-2022 History SDOH Transpo rt Med 2 [facility] Start: 07-05-2022 End: 01-02-2025 Alcohol intake Ex-drinker (finding) [facility] History of tobacco use Current smoker [facility] Start: 07-27-2023 End: 06-11-2024 Gender identity Not on file [facility] How often do you nee d to have someone help you when you read instructions, pamphlets, or other written material from your doctor or pharmacy [SILS] Never [facility] Has the [employer], or [employer] threatened to shut off services in your home in past 12Mo No [facility] Are you now , , , , never or living with a partner? [facility] How often to you hav e a drink containing alcohol? Monthly or less [facility] How often do you hav e 6 or more drinks on 1 occasion? Never [facility] How hard is it for y ou to pay for the very basics like food, housing, medical care, and heating Not very hard [facility] Do you feel stress - tense, restless, nervous, or anxious, or unable to sleep at night because your mind is troubled all the time - these days [OSQ] Not at all [facility] (I/We) worried wheth er (my/our) food would run out before (I/we) got money to buy more. Never true [facility] Start: 02-15-2022 End: 10-25-2024 Sex Female (finding) [facility] Start: 1940 [facility] assigned at Female [facility] Start: 08-03-2024 Gender identity Identifies as female gender (finding) [facility] Start: 08-03-2024 Sexual orientation Heterosexual (fin ding) [facility] NEGATED: Highlighted rowStart: GISEL History of tobacco use Passive smoker [facility] Medical Equipment Procedure Code Equipment Code Equipment Origin al Text Equipment Identifier Dates Gas Ispan Constellation Intraocular Vision System [id number] - [id number] Start: 07-27-2024 Stent Vasc 6x40x 125 6f Zilver - Sna - [id number] Start: 11-22-2024 Stent Oliva [id number] 25 6f Zilver - Sna - [id number] Start: 11-22-2024 Functional Status Date Assessment Result Facility 07-18-2024 Are you deaf, or do you have serious difficulty hearing No 07/18/2024 12:17 PM Jaci Umana, RADHA No [facility] 07-18-2024 Are you blind, or do you have serious difficulty seeing, even when wearing glasses Yes 07/18/2024 12:17 PM Jaci Umana, RADHA Yes [facility] 07-18-2024 Do you have serious difficulty walking or climbing stairs Yes 07/18/2024 12:17 PM Jaci Umana, RN Yes [facility] 07-18-2024 Do you have difficul ty dressing or bathing Yes 07/18/2024 12:17 PM Jaci Umana, RN Yes [facility] 07-18-2024 Because of a physica l, mental, or emotional condition, do you have difficulty doing errands alone such as visiting a physician's office or shopping Yes 07/18/2024 12:17 PM Jaci Umana RN Yes [facility] Mental Status Date Assessment Result Facility 07-18-2024 Because of a physica l, mental, or emotional condition, do you have serious difficulty concentrating, remembering, or making decisions No 07/18/2024 12:17 PM Jaci Umana RN No [facility] Clinical Notes 05-14-2022 to 01-02-2025 Savana Lopez [...] choroidals (not yet appositional) - Evaluated at [place] 07/12/24 with intense nausea and multiple episodes [...] to HTN (SBP 199/99 at presentation to [facility]) and anticoagulation that led to angle closure [...] its relevant components. documented in this encounter [facility] 01-02-2025 Note HNO ID: [id number] Author: SAVANA LOPEZ MD Service: ? Author Type: Physician Type: Progress Notes Filed: 01/02/2025 12:56 Note Text: Can see shadows; No pain right eye Suprachoroidal hemorrhage RIGHT EYE S/p choroidal drainage RIGHT eye on 07/13/24 for choroidal hemorrhage with repositioning of IOL (Chelita/Luis Alberto) S/p Choroidal drainage/PPV/EL/PFO/FAX/C3F8 (16%) RIGHT eye [...] choroidals (not yet appositional) - Evaluated at [place] 07/12/24 with intense nausea and multiple episodes [...] plan as state (more content not included)... [facility] 12-24-2024 History of Present illness Narrative 12/24/2024 Mel Pop 1940 Chief Complaint Patient presents with Follow-up Discuss Arterial Duplex Right 12/13/24; 2nd follow up RLE angio, SFA/pop/tib angioplasty/stenting 11/22/24 ([facility] [phone]) Patient returns for post operative evaluation s/p [...] femoral angiography (Krzysztof) documented in this encounter [facility] 12-05-2024 History of Present illness Narrative 12/05/2024 [...] foot, limited to breakdown of skin (HCC) - Primary Relevant Orders Vascular US lower [...] I reviewed the images with the patient's qfdbdjnq-va-ewt who was present for today's visit as the patient is blind. Follow up after arterial duplex to discuss the results. Kristyn Blankenship MD Vascular Surgery [1] Past Surgical History: Procedure Laterality Date ANKLE SURGERY ARM SURGERY (HISTORICAL) Right COLONOSCOPY ESOPHAGEAL DILATION EYE SURGERY Right 07/05/2024 [facility] EYE SURGERY Right 06/2024 x2, 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 Groin site remains intact and LE distal pulses unchanged via assessment with doppler. Transportation called for scrap picker [facility] 11-22-2024 Miscellaneous Notes POA called to bedside and discharge instructions reviewed. Groin site remains intact and LE distal pulses unchanged via assessment with doppler. Transportation called for scrap picker POA given updated via phone call. [...] the patient as well as the patient's hvyzgzsi-pz-rdr Fidel. They have elected to proceed. PROCEDURE [...] technique was used to place a 5 Slovenian sheath. The Bentson wire was positioned in [...] catheter and the catheter removed. The 5 Slovenian sheath was exchanged for a long 6 Slovenian Ansell sheath which was positioned with its [...] sheath was exchanged for a short 6 Slovenian sheath. A Vascade closure device was deployed [...] MD Vascular Surgery documented in this encounter [facility] 11-22-2024 Procedure note POA given updated via phone call. Made aware of patient's orders to lay flat until 1325. Daughter in law stated that she will call care facility later to make arrangements for transportation back. [facility] 11-22-2024 Hospital Discharge instructions Mehreen Khanna MD [...] the office l documented in this encounter [facility] 11-22-2024 Nurse Note Patient arrived on unit. Name and date verified. Attached to monitors. Vital signs stable. [facility] 11-22-2024 Note [facility] 11-22-2024 Procedure note OPERATIVE REPORT DATE OF [...] the patient as well as the patient's jjchfxbd-le-vec Fidel. They have elected to proceed. PROCEDURE [...] technique was used to place a 5 Slovenian sheath. The Bentson wire was positioned in [...] catheter and the catheter removed. The 5 Slovenian sheath was exchanged for a long 6 Slovenian Ansell sheath which was positioned with its [...] sheath was exchanged for a short 6 Slovenian sheath. A Vascade closure device was deployed [...] preoperative examination. Kristyn Blankenship MD Vascular Surgery [facility] 11-22-2024 Attending History and physical note [...] with a walker with pT at her longterm facility. She is on Eliquis and statin. She is a former smoker. PastMedical History: Past Medical History: Diagnosis Date Arrhythmia PAF Asthma Chronic kidney disease COPD (chronic obstructive pulmonary disease) ([facility]) DVT (deep venous thrombosis) ([facility]) Essential hypertension 03/07/2020 GERD (gastroesophageal reflux disease) Hiatal hernia IBS (irritable bowel syndrome) Pure hypercholesterolemia 03/07/2020 PVD (peripheral vascular disease) ([facility]) Stroke ([facility]) Past Surgical History: Past Surgical History: Procedure Laterality Date ANKLE SURGERY ARM SURGERY (HISTORICAL) Right COLONOSCOPY ESOPHAGEAL DILATION EYE SURGERY Right 07/05/2024 [facility] EYE SURGERY Right 06/2024 x2, [facility] FINGER AMPUTATION Right 03/07/2020 right index finger [...] Resource Strain: Low Risk (06/20/2024) Received from [facility] Medical Overall Financial Resource Strain [...] min Stress: Patient Unable To Answer (08/03/2024) [place] [employer] - Occupational Stress Questionnaire Feeling of Stress : Patient unable to answer Social Connections: Unknown (08/03/2024) Social Connection and Isolation Panel [NHANES] Frequency of Communication with Friends and Family: Patient unable to answer Frequency of Social Gatherings with Friends and Family: Patient unable to answer Attends Islam Services: Patient unable to answer Active Member of Clubs or Organizations: Patient unable to answer Attends Club or Organization Meetings: Never Marital Status: Patient unable to answer Recent Concern: Social Connections - Moderately Isolated (06/20/2024) Received from [facility] Medical Social Connection and Isolation Panel [NHANES] Frequency of Communication with Friends and Family: More than three times a week Frequency of Social Gatherings with Friends and Family: Once a week Attends Islam Services: More than 4 times per year [...] like me to discuss this with her kwhgfxea-tw-obj Fidel Castillo. She states she is her POA. I have contacted Fidel via telephone and explained the above and the recommendations for angiography. She will speak with the patient and call the office to let us know how they would like to proceed. Kristyn Blankenship MD Vascular Surgery [facility] Work Phone: 11-22-2024 Note [facility] 11-22-2024 History and physical note H&P reviewed. The patient was examined and there are no changes to the H&P. Plan for right lower extremity angiography with possible SFA/popliteal intervention. I discussed the procedure with the patient and how it is performed. I reiterated the risk of access site complications. The patient's POA Fidle Castillo was also present in the pre-operative [...] with a walker with pT at her longterm facility. She is on Eliquis and statin. She is a former smoker. PastMedical History: Past Medical History: Diagnosis Date Arrhythmia PAF Asthma Chronic kidney disease COPD (chronic obstructive pulmonary disease) ([facility]) DVT (deep venous thrombosis) ([facility]) Essential hypertension 03/07/2020 GERD (gastroesophageal reflux disease) Hiatal hernia IBS (irritable bowel syndrome) Pure hypercholesterolemia 03/07/2020 PVD (peripheral vascular disease) ([facility]) Stroke ([facility]) Past Surgical History: Past Surgical History: Procedure Laterality Date ANKLE SURGERY ARM SURGERY (HISTORICAL) Right COLONOSCOPY ESOPHAGEAL DILATION EYE SURGERY Right 07/05/2024 [facility] EYE SURGERY Right 06/2024 x2, [facility] FINGER AMPUTATION Right 03/07/2020 right index finger [...] min Stress: Patient Unable To Answer (08/03/2024) [place] [employer] - Occupational Stress Questionnaire Feeling of Stress : Patient unable to answer Social Connections: Unknown (08/03/2024) Social Connection and Isolation Panel [NHANES] Frequency of Communication with Friends and Family: Patient unable to answer Frequency of Social Gatherings with Friends and Family: Patient unable to answer Attends Islam Services: Patient unable to answer Active Member of Clubs or Organizations: Patient unable to answer Attends Club or Organization Meetings: Never Marital Status: Patient unable to answer Recent Concern: Social Connections - Moderately Isolated (06/20/2024) Received from [facility] Medical Social Connection and Isolation Panel [NHANES] Frequency of Communication with Friends and Family: More than three times a week Frequency of Social Gatherings with Friends and Family: Once a week Attends Islam Services: More than 4 times per year [...] like me to discuss this with her tdspjjdb-hu-etz Fidel Castillo. She states she is her POA. I have contacted Fidel via telephone and explained the above and the recommendations for angiography. She will speak with the patient and call the office to let us know how they would like to proceed. Kristyn Blankenship MD Vascular Surgery documented in this encounter [facility] 11-09-2024 Note Tried to reach patie nt to discuss auditor medical claims her procedure. Mailbox full & unable to leave voicemail. [facility] 11-05-2024 History of Present illness Narrative Vascular [...] with a walker with pT at her longterm facility. She is on Eliquis and statin. She is a former smoker. PastMedical History: Past Medical History: Diagnosis Date Arrhythmia PAF Asthma Chronic kidney disease COPD (chronic obstructive pulmonary disease) ([facility]) DVT (deep venous thrombosis) ([facility]) Essential hypertension 03/07/2020 GERD (gastroesophageal reflux disease) Hiatal hernia IBS (irritable bowel syndrome) Pure hypercholesterolemia 03/07/2020 PVD (peripheral vascular disease) (HCC) Stroke (HCC) Past Surgical History: Past Surgical History: Procedure Laterality Date ANKLE SURGERY ARM SURGERY (HISTORICAL) Right COLONOSCOPY ESOPHAGEAL DILATION EYE SURGERY Right 07/05/2024 [facility] EYE SURGERY Right 06/2024 x2, [facility] FINGER AMPUTATION Right 03/07/2020 right index finger [...] Resource Strain: Low Risk (06/20/2024) Received from [facility] Medical Overall Financial Resource Strain [...] min Stress: Patient Unable To Answer (08/03/2024) [place] [employer] - Occupational Stress Questionnaire Feeling of Stress : Patient unable to answer Social Connections: Unknown (08/03/2024) Social Connection and Isolation Panel [NHANES] Frequency of Communication with Friends and Family: Patient unable to answer Frequency of Social Gatherings with Friends and Family: Patient unable to answer Attends Islam Services: Patient unable to answer Active Member of Clubs or Organizations: Patient unable to answer Attends Club or Organization Meetings: Never Marital Status: Patient unable to answer Recent Concern: Social Connections - Moderately Isolated (06/20/2024) Received from [facility] Medical Social Connection and Isolation Panel [NHANES] Frequency of Communication with Friends and Family: More than three times a week Frequency of Social Gatherings with Friends and Family: Once a week Attends Islam Services: More than 4 times per year [...] like me to discuss this with her xymotans-km-gut Fidel Castillo. She states she is her POA. I have contacted Fidel via telephone and explained the above and the recommendations for angiography. She will speak with the patient and call the office to let us know how they would like to proceed. Kristyn Blankenship MD Vascular Surgery documented in this encounter [facility] 11-05-2024 Note [facility] 10-01-2024 Note Date of Procedure 10/01/2024. Aircraft Assembler Information CATALINA Donovan CDOS 10/01/2024 10:58 AM [...] drops right eye documented in this encounter [facility] 10-01-2024 Note HNO ID: [id number] Author: SAVANA LOPEZ MD Service: ? Author [...] choroidals (not yet appositional) - Evaluated at [place] 07/12/24 with intense nausea and multiple episodes [...] agree with al (more content not included)... [facility] 10-01-2024 History of Present illness Narrative Can [...] its relevant components. documented in this encounter 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 documented in this encounter [facility] 09-05-2024 Note HNO ID: [id number] Author: SAVANA LOPEZ MD Service: ? 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 [facility] 08-22-2024 History of Present illness Narrative [facility] Vascular Surgery Follow-up Office Visit CHIEF COMPLAINT: Chief Complaint Patient presents with Follow-up 3 month follow up, PAD check ([facility] HISTORY OF PRESENT ILLNESS: Mel Pop is [...] is ambulating with walker with PT at [facility] without difficulty. She denies any rest pain [...] 07/05/2024 [facility] EYE SURGERY Right 06/2024 x2, [facility] FINGER AMPUTATION Right 03/07/2020 right index finger [...] Resource Strain: Low Risk (06/20/2024) Received from [facility] Medical Overall Financial Resource Strain [...] min Stress: Patient Unable To Answer (08/03/2024) [place] [employer]ational [employer] - Occupational Stress Questionnaire Feeling of Stress : Patient unable to answer Social Connections: Unknown (08/03/2024) Social Connection and Isolation Panel [NHANES] Frequency of Communication with Friends and Family: Patient unable to answer Frequency of Social Gatherings with Friends and Family: Patient unable to answer Attends Islam Services: Patient unable to answer Active Member of Clubs or Organizations: Patient unable to answer Attends Club or Organization Meetings: Never Marital Status: Patient unable to answer Recent Concern: Social Connections - Moderately Isolated (06/20/2024) Received from [facility] Medical Social Connection and Isolation Panel [NHANES] Frequency of Communication with Friends and Family: More than three times a week Frequency of Social Gatherings with Friends and Family: Once a week Attends Islam Services: More than 4 times per year [...] Follow-Up: prn . documented in this encounter [facility] 08-16-2024 Note [facility] 08-16-2024 Nurse Note Patient picked up for transfer to [facility] by stretcher. Report already called to GENET Garcia. [facility] 08-16-2024 Nurse Note Patient picked up for transfer to [facility] by stretcher. Report already called to GENET Garcia. Telephone report called to GENET Garcia at [facility]. Bedside swallow completed. Pt passed and tolerated well tolerated well. documented in this encounter [facility] 08-16-2024 Nurse Note Telephone report called to GENET Garcia at [facility]. [facility] 08-16-2024 Note Formatting of this n ote might be different from the original. Arranged transport to [facility] via [employer] stretcher with pickup at 2pm. Notified snf of transport time via [employer] message; reviewed time with RN, residential door unit installer and TCC. Called pt's daughter to review discharge time., plan; she is agreeable. [facility] 08-16-2024 Note Formatting of this n ote might be different from the original. Arranged transport to [facility] via [employer] stretcher with pickup at 2pm. Notified snf of transport time via [employer] message; reviewed time with RN, residential door unit installer and TCC. Called pt's daughter to review discharge time., plan; she is agreeable. [facility] 08-16-2024 Miscellaneous Notes Arranged transport to [facility] via [employer] stretcher with pickup at 2pm. Notified snf of transport time via [employer] message; reviewed time with RN, residential door unit installer and TCC. Called pt's daughter to review discharge time., plan; she is agreeable. Patient Choice Patient Name: MEL POP Date of : 1940 All Providers Sent Referral Name: [facility] Phone: [phone] Address: [place] [address] Name: [facility] Phone: [phone] Address: [address] [place] [address] Name: [facility] Phone: [phone] Address: [place] [address] MAR & Discharge med list transmitted to [facility] via [employer] per TCC request. Pt has auth to go to [facility]. Dtr Fidel,[phone] was called, message left @DC. Care Team was messaged...place DC orders/MAR. Dar YOUNG, RN complete HECTOR. ART COORDINATOR will arrange transport for this am. [facility] tasked to sebd DC orders/MAR. Problem: Knowledge [...] Progressing Authorization is pending with [employer]. Ref# [id number] to be DC'd to [facility]. Dtr Fidel Updated. CM to follow. Patient [...] Progressing Pt has Been accepted to [facility]. Need PT/OT to see so auth to [...] Outcome: Progressing Referral placed to SNF- [facility] via [facility] per [facility] request. Await review and response regarding ability to accept. TCC notified. Electronically signed by Christine Morataya [facility], 08-13-2024 at 3:00 PM Called dgt to talk about dc planning. Dgt continues to tour SNFs this evening, since she was sick this weekend. Provided me with two more SNF choices. [facility]. Tasked [facility] to create these referrals. CM to follow. [...] Dgt touring facilities over the weekend. Moira. [facility] pending acceptance, updates sent via [employer]. Problem: Knowledge Deficit Goal: Patient/family/caregiver demonstrates understanding [...] Nutritional Intake Outcome: Progressing Referral placed to [facility]- [facility] via [employer] per TCC request. Await review and response regarding ability to accept. TCC notified. Electronically signed by Christine Morataya [facility], 08-10-2024 at 9:23AM Pt was to be DC to [facility]. Found out pt and dtr didn't want to return to [facility]. SNF was made aware. On adm spoke with Dtr Fidel, ok to return. Called Dtr this am, after speaking with pt and things that happened and didn't happen. Fidel requesting a referral to be made to [facility]. [facility] tasked to send. A SNF list was emailed to Fidel. [email or web address]. She will tour facilities over weekend. CM [...] and med list sent via [facility] to [facility] per TCC request. Auth received. Patient with active dc orders. [facility] with estimated scrap picker time of 1929. left with daughter Fidel along with 3N phone number to call with questions. Bedside RN aware. Facility updated. [facility] distribution operation supervisor sent orders to [facility]. product management manager was asked to assist with setting up transport back to [facility] this evening. community youth secretary had already done so, but this underwriting manager called daughter to inform her of discharge and transport set up. Daughter did not wish patient to return to the SNF. Bread Jockey told her that patient is medically stable for dc and that she should continue the discussion with the social science manager and county administrator at The snf, and also get options from [employer]. Coordinator was to message the snf about return this evening via [employer]. Updated PT/OT notes placed to SNF [facility] via [employer] per TCC request. Await review and response regarding ability to accept. TCC notified. Electronically signed by [facility] Aracelis Gardiner Patient is medically ready for dc. PT/OT both continuing to recommend SNF. [facility] underwriting manager asked to start auth. Plan to dc back to [facility] pending auth I was off Yesterday, PT note was in from Tuesday. Therapy to see today was sent out to OT Tuesday to see yesterday. Pt was not seen. I did sent a therapy to see today to PT/OT so an auth can be started. Pt will Be Dc'd to [facility]. CM to follow. Problem: Knowledge Deficit [...] aspiration 2/2 vomiting. Discharge Plan: Return to [facility]. Therapy eval needed for precert. TCC [...] Plan is for pt to return to [facility]. Auth and HECTOR needed prior to DC. CM to follow. Per attending pt ready for DC. Pt will return to [facility]. Pt needs PT/OT to start auth Therapy [...] RN Outcome: Progressing Return referral placed to [facility] via [facility] per [facility] request. Await review and response regarding ability to accept. TCC notified. Pt to ED w N/V/Diarrhea, was Dx w Aspiration pneumonitis. Started on IV ATB's. Called pt's Dtr, Fidel, . Pt is from [facility]. Plan on returning. [facility] tasked to send a return referral. Problem: [...] Improved Outcome: Progressing documented in this encounter [facility] 08-16-2024 Note Formatting of this n ote might be different from the original. Patient Choice Patient Name: MEL POP Date of : 1940 All Providers Sent Referral Name: Mckenzie Adames [facility] Phone: [phone] Address: [address] [place] [address] Name: [facility] Phone: [phone] Address: [address] [place] [address] Name: [facility] Phone: [phone] Address: [address] [place] [address] [facility] 08-16-2024 Note Formatting of this n ote might be different from the original. Patient Choice Patient Name: MEL POP Date of : 1940 All Providers Sent Referral Name: [facility] Phone: [phone] Address: [address] [place] [address] Name: [facility] Phone: [phone] Address: [address] [place] [address] Name: [facility] Phone: [phone] Address: [address] [place] [address] [facility] 08-16-2024 Note Formatting of this n ote might be different from the original. MAR & Discharge med list transmitted to [facility] via [facility]port per TCC request. Electronically signed by [facility] Lavelle Leone [facility] 08-16-2024 Note Formatting of this n ote might be different from the original. MAR & Discharge med list transmitted to [facility] via [facility] per TCC request. [facility] 08-16-2024 Note Formatting of this n ote might be different from the original. Pt has auth to go to [facility]. Dtr Fidel,[phone] was called, message left @DC. Care Team was messaged...place DC orders/MAR. Dar YOUNG RN complete HECTOR. ART COORDINATOR will arrange transport for this am. [facility] tasked to sebd DC orders/MAR. [facility] 08-16-2024 Note Formatting of this n ote might be different from the original. Pt has auth to go to [facility]. Dtr Fidel,[phone] was called, message left @DC. Care Team was messaged...place DC orders/MAR. Dar YOUNG, RN complete HECTOR. ART COORDINATOR will arrange transport for this am. CHANGE ROOM ATTENDANT tasked to sebd DC orders/MAR. [facility] 08-16-2024 History of Present illness Narrative Hospitalist Progress Note 08/16/2024 Subjective: Admit Date: 08/03/2024 PCP: Jared Evans MD Room#: [id number] A BRIEF HOSPITAL COURSE: Mel is a 83 y.o. female with past medical history below who presents with chief complaint listed above.Patient is an 83 y/o female who presented to [place] ER early this AM from local [place] for vomiting and diarrhea. Patient reported she [...] rehab yet. She has no symptomatic complaints. 1/30 - Pending auth- DC orders complete over past 2 days. No complaints Adult diet Regular 24HR INTAKE/OUTPUT: Intake/Output Summary (Last 24 hours) at 08/16/2024 0911 Last data filed at 08/15/2024 1451 Gross per 24 hour Intake 240 ml Output -- Net 240 ml Past Medical History: Past Medical History: Diagnosis Date Arrhythmia PAF Asthma Chronic kidney disease COPD (chronic obstructive pulmonary disease) ([facility]) DVT (deep venous thrombosis) ([facility]) Essential hypertension 03/07/2020 GERD (gastroesophageal reflux disease) Hiatal hernia IBS (irritable bowel syndrome) Pure hypercholesterolemia 03/07/2020 PVD (peripheral vascular disease) ([facility]) Stroke ([facility]) LABS: CBC: No results for input(s): "WBC", [...] Devika Escobar MD Division of Hospitalist Medicine [facility] Hospitalist Progress Note 08/15/2024 Subjective: Admit Date: 08/03/2024 PCP: Jared Evans MD Room#: [id number] A BRIEF HOSPITAL COURSE: Mel is a 83 y.o. female with past medical history below who presents with chief complaint listed above.Patient is an 83 y/o female who presented to [place] ER early this AM from local [place] for vomiting and diarrhea. Patient reported she [...] pulmonary disease) (HCC) DVT (deep venous thrombosis) ([facility]) Essential hypertension 03/07/2020 GERD (gastroesophageal reflux disease) [...] Devika Escobar MD Division of Hospitalist Medicine Acute care [facility] Images from the original note were not included. PHYSICAL THERAPY [facility] Treatment Note Name/MRN: Mel Pop ([id number]) Date of : 1940 Age: 83 y.o. 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 [...] Stairs) : 19 JH-HLM JH-HLM Score: Walked 25 ft or more (i.e. walked outside of room) Goals Patient Stated Goal: keep getting up, get back to [place]. Encounter Problems Encounter Problems (Active) Balance Patient [...] Treatment Minutes: 19 Minutes (Gait) Oanh Grimes EP TECHNOLOGIST Cosigned by Samantha Lora, PT at 08/14/2024 3:14 PM EST Images from the original note were not included. OCCUPATIONAL THERAPY [facility] Treatment Note Name/MRN: Mel Pop ([id number]) Date of : 1940 Age: 83 y.o. [facility] A Discharge Recommendation: Custodial Facility Prior Level of Function Prior Level [...] with 24/7 assist, home health OT and homeland security program specialist. Pt. ( Who is totally BLIND), Would due better receiving therapy in her home due to familiar environment. If she can not get 24/7 assist at home then OT recommend SNF at [place]. Subjective Pt. Remains in her recliner eating [...] Minutes (ther act-1) FERDINAND Castellanos Cosigned by MAMIE Blackwell/Weston at 08/14/2024 2:25 PM EST Hospitalist Progress Note 08/14/2024 Subjective: Admit Date: 08/03/2024 PCP: Jared Evans MD Room#: [id number] A BRIEF HOSPITAL COURSE: Mel is a 83 y.o. female with past medical history below who presents with chief complaint listed above.Patient is an 83 y/o female who presented to [place] [facility] early this AM [place] for [place] and diarrhea. Patient reported she [...] kidney disease COPD (chronic obstructive pulmonary disease) ([facility]) DVT (deep venous thrombosis) ([facility]) Essential hypertension 03/07/2020 GERD (gastroesophageal reflux disease) Hiatal hernia IBS (irritable bowel syndrome) Pure hypercholesterolemia 03/07/2020 PVD (peripheral vascular disease) ([facility]) Stroke ([facility]) LABS: CBC: No results for input(s): "WBC", [...] Devika Escobar MD Division of Hospitalist Medicine Acute care [facility] Hospitalist Progress Note 08/13/2024 Subjective: Admit Date: 08/03/2024 PCP: Jared Evans MD Room#: [id number] A BRIEF HOSPITAL COURSE: Mel is a 83 y.o. female with past medical history below who presents with chief complaint listed above.Patient is an 83 y/o female who presented to [place] [facility] early this AM [place] for [place] and diarrhea. Patient reported she [...] pulmonary disease) (HCC) DVT (deep venous thrombosis) ([facility]) Essential hypertension 03/07/2020 GERD (gastroesophageal reflux disease) Hiatal hernia IBS (irritable bowel syndrome) Pure hypercholesterolemia 03/07/2020 PVD (peripheral vascular disease) ([facility]) Stroke ([facility]) LABS: CBC: No results for input(s): "WBC", [...] Kael Anderson DO Division of Hospitalist Medicine [facility] Nutrition Assessment Type and Reason for Visit: [...] No significant fluid accumulation (per flow sheets) Manager Corporate Strategy Strength: Not Performed Nutrition Assessment: 83 y.o. [...] On: Kcal/kg Weight Used for Energy Requirements: [place] Weight for Energy Calculation (kg): 54 kg Total Energy Requirements (kcals/day): 9549-5756 Weight Used for Protein Requirements: [place] Weight in Kg Used for Protein Requirements: [...] 160# 07/05) % Weight Change (Calculated): 12.2 [place] Body Weight (lbs) (Calculated): 119 lbs [place] Body Weight (Kg) (Calculated): 54 kg BMI [...] soon to determine Janki Fields RD Contact: *[phone] Hospitalist Progress Note 08/12/2024 Subjective: Admit Date: 08/03/2024 PCP: Jared Evans MD Room#: [id number] A BRIEF HOSPITAL COURSE: Mel is a 83 y.o. female with past medical history below who presents with chief complaint listed above.Patient is an 83 y/o female who presented to [facility] early this AM [place] for [place] and [place]. Patient reported she [...] pulmonary disease) (HCC) DVT (deep venous thrombosis) ([facility]) Essential hypertension 03/07/2020 GERD (gastroesophageal reflux disease) Hiatal hernia IBS (irritable bowel syndrome) Pure hypercholesterolemia 03/07/2020 PVD (peripheral vascular disease) ([facility]) Stroke ([facility]) LABS: CBC: No results for input(s): "WBC", [...] Anderson DO Division of Hospitalist Medicine Acute [facility] Hospitalist Progress Note 08/11/2024 Subjective: Admit Date: 08/03/2024 PCP: Jared Evans MD Room#: [id number] A BRIEF HOSPITAL COURSE: Mel is a 83 y.o. female with past medical history below who presents with chief complaint listed above.Patient is an 83 y/o female who presented to [place] early this AM [place] for [place] and diarrhea. Patient reported she [...] pulmonary disease) (HCC) DVT (deep venous thrombosis) ([facility]) Essential hypertension 03/07/2020 GERD (gastroesophageal reflux disease) Hiatal hernia IBS (irritable bowel syndrome) Pure hypercholesterolemia 03/07/2020 PVD (peripheral vascular disease) ([facility]) Stroke ([facility]) LABS: CBC: No results for input(s): "WBC", [...] Kael Anderson DO Division of Hospitalist Medicine [facility] Hospitalist Progress Note 08/10/2024 Subjective: Admit Date: 08/03/2024 PCP: Jared Evans MD Room#: [id number] A BRIEF HOSPITAL COURSE: Mel is a 83 y.o. female with past medical history below who presents with chief complaint listed above.Patient is an 83 y/o female who presented to [place] [facility] early this AM [place] for [place] and diarrhea. Patient reported she [...] kidney disease COPD (chronic obstructive pulmonary disease) ([facility]) DVT (deep venous thrombosis) ([facility]) Essential hypertension 03/07/2020 GERD (gastroesophageal reflux disease) Hiatal hernia IBS (irritable bowel syndrome) Pure hypercholesterolemia 03/07/2020 PVD (peripheral vascular disease) ([facility]) Stroke ([facility]) LABS: CBC: No results for input(s): "WBC", [...] Kael Anderson DO Division of Hospitalist Medicine [facility] Hospitalist Progress Note 08/09/2024 Subjective: Admit Date: 08/03/2024 PCP: Jared Evans MD Room#: [id number] A BRIEF HOSPITAL COURSE: Mel is a 83 y.o. female with past medical history below who presents with chief complaint listed above.Patient is an 83 y/o female who presented to [place] [facility] early this AM [place] and [place]. Patient reported she [...] kidney disease COPD (chronic obstructive pulmonary disease) ([facility]) DVT (deep venous thrombosis) ([facility]) Essential hypertension 03/07/2020 GERD (gastroesophageal reflux disease) Hiatal hernia IBS (irritable bowel syndrome) Pure hypercholesterolemia 03/07/2020 PVD (peripheral vascular disease) ([facility]) Stroke ([facility]) LABS: CBC: No results for input(s): "WBC", [...] Kael Anderson DO Division of Hospitalist Medicine [facility] Images from the original note were not included. OCCUPATIONAL THERAPY [facility] Initial Evaluation Name/MRN: Mel Pop ([id number]) Evaluation Date: 08/08/2024 Date of : 1940 Admission Date: 08/03/2024 2:22 AM Age: 83 y.o. Room/Bed: N5548/N5-548 A Discharge Recommendation: Custodial Facility Assessment IMPRESSION: Pt would benefit from [...] Problem List Diagnosis Date Noted Aspiration pneumonitis ([facility]) ([facility]) 08/03/2024 Visual disturbance, subjective 07/06/2024 Retinal detachment, right 07/05/2024 Vision loss of right eye 07/05/2024 Acute venous embolism and thrombosis of deep vessels of proximal lower extremity ([facility]) 04/14/2024 Peripheral arterial disease ([facility]) 04/03/2024 Immunodeficiency due to conditions classified elsewhere ([facility]) 07/27/2023 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 ([facility]) 07/27/2023 Bilateral pneumonia 06/16/2022 COVID-19 06/16/2022 Hypothyroidism 06/16/2022 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[facility]) 06/16/2022 Cellulitis 05/18/2022 Nicotine use disorder 05/18/2022 Acute venous embolism and thrombosis of deep vessels of proximal end of right lower extremity ([facility]) 04/19/2024 Atrial fibrillation, unspecified type ([facility]) 04/19/2024 Irritable bowel syndrome with diarrhea 03/07/2020 Microscopic hematuria 03/07/2020 Left retinal detachment 03/07/2020 Hyperglycemia 03/07/2020 Osteopenia of left femoral neck 03/07/2020 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 03/07/2020 Seasonal allergies 03/07/2020 Chronic renal insufficiency, stage III (moderate) ([facility]) 03/07/2020 Major depression, single episode, in complete remission ([facility]) 03/07/2020 Gastroesophageal reflux disease without esophagitis 03/07/2020 Essential hypertension 03/07/2020 Pure hypercholesterolemia 03/07/2020 Overweight 03/07/2020 Psoriasis 03/07/2020 History of cerebrovascular accident 03/07/2020 Atrial fibrillation ([facility]) 03/07/2020 Chronic obstructive pulmonary disease ([facility]) 03/07/2020 Finger osteomyelitis, right ([facility]) 03/06/2020 Medical Precautions: Enhanced Contact Proper PPE [...] of Care supervision is transferred to a [facility] Therapy Services Occupational Therapist. Goals and/or treatment plan was established in collaboration with patient/family/other representatives. Shannon Fernandez MS, OTR/L Images from the original note were not included. PHYSICAL THERAPY [facility] Treatment Note Name/MRN: Mel Pop ([id number]) Date of : 1940 Age: 83 y.o. Room[facility]: [facility] A Discharge Recommendation: Custodial Facility Equipment Needed: (pt uses FWW EP TECHNOLOGIST) Prior Level of Function Prior Level of [...] Goal: keep getting up, get back to [place]. Encounter Problems Encounter Problems (Active) Balance Patient [...] [address], SPT Cosigned by Cathi Hough, PT at 08/08/2024 2:49 PM EST Hospitalist Progress Note 08/08/2024 Subjective: Admit Date: 08/03/2024 PCP: Jared Evans MD Room#: [id number] A BRIEF HOSPITAL COURSE: Mel is a 83 y.o. female with past medical history below who presents with chief complaint listed above.Patient is an 83 y/o female who presented to [place] [facility] early this AM from local [place] for vomiting and diarrhea. Patient reported she [...] kidney disease COPD (chronic obstructive pulmonary disease) ([facility]) DVT (deep venous thrombosis) ([facility]) Essential hypertension 03/07/2020 GERD (gastroesophageal reflux disease) Hiatal hernia IBS (irritable bowel syndrome) Pure hypercholesterolemia 03/07/2020 PVD (peripheral vascular disease) ([facility]) Stroke ([facility]) LABS: CBC: Recent Labs 08/05/24 2343 WBC [...] Contact Information Primary Emergency Contact: José Miguel Csatillo/ Fidel Mobile Relation: Mother Secondary Emergency Contact: Damaris Villafana DO NOT CALL-TERMINALLY ILL Mobile Relation: Friend Kael Anderson DO Division of Hospitalist Medicine [facility] Hospitalist Progress Note 08/07/2024 Subjective: Admit Date: 08/03/2024 PCP: Jared Evans MD Room#: [id number] A BRIEF HOSPITAL COURSE: Mel is a 83 y.o. female with past medical history below who presents with chief complaint listed above.Patient is an 83 y/o female who presented to [place] [facility] early this AM from local [place] for vomiting and diarrhea. Patient reported she [...] 100 mL/hr, Last Rate: 100 mL/hr (08/06/24 0704) Assessment Data: Acute, acute on chronic, unstable/uncontrolled [...] Kael Anderson DO Division of Hospitalist Medicine [facility] Hospitalist Progress Note 08/06/2024 Subjective: Admit Date: 08/03/2024 PCP: Jared Evans MD Room#: [id number] A BRIEF HOSPITAL COURSE: Mel is a 83 y.o. female with past medical history below who presents with chief complaint listed above.Patient is an 83 y/o female who presented to [place] [facility] early this AM from local [place] for vomiting and diarrhea. Patient reported she [...] kidney disease COPD (chronic obstructive pulmonary disease) ([facility]) DVT (deep venous thrombosis) ([facility]) Essential hypertension 03/07/2020 GERD (gastroesophageal reflux disease) Hiatal hernia IBS (irritable bowel syndrome) Pure hypercholesterolemia 03/07/2020 PVD (peripheral vascular disease) ([facility]) Stroke ([facility]) LABS: CBC: Recent Labs 08/04/24 0447 08/05/24 0358 08/05/24 2343 WBC 5.6 6.5 7.3 RBC 3.88 3.78* 3.96 HGB 10.0* 9.9* 10.3* HCT 33.0* 31.9* 33.3* MCV 85.1 84.4 84.1 RDW 19.3* 19.2* 18.9* PLT 280 242 235 BMP: Recent Labs 08/04/24 0447 08/05/24 0358 08/05/24 2343 NA 139 134* 139 K 3.9 3.8 3.8 CL 112* 108* 115* CO2 21* 21* 17* BUN 26* 13 9 CREATININE 1.13* 0.89 0.91 GLUCOSE 153* 85 92 CALCIUM 8.2* 8.1* 8.4* ANIONGAP 6 5 7 LIVER PROFILE: Recent Labs 08/04/24 0447 08/05/24 0358 08/05/24 [...] chloride, 100 mL/hr, Last Rate: 100 mL/hr (08/05/241814) Assessment Data: NA (LOW: 2x CAT1 or [...] Kayden Tatum MD Division of Hospitalist Medicine [facility] care [facility] Images from the original note were not included. PHYSICAL THERAPY [facility] Initial Evaluation Name/MRN: Mel Pop ([id number]) Evaluation Date: 08/06/2024 Date of : 1940 Admission Date: 08/03/2024 2:22 AM Age: 83 y.o. [facility] A Discharge Recommendation: Custodial Facility (pt from SNF at baseline) Equipment Needed: (pt uses FWW EP TECHNOLOGIST) Assessment IMPRESSION: Pt's Vincent scoring has varied [...] to SNF-level care (pt was receiving PT EP TECHNOLOGIST) Admitting Diagnosis: aspiration pneumonitis, + Norovirus. S/p [...] kidney disease COPD (chronic obstructive pulmonary disease) ([facility]) DVT (deep venous thrombosis) ([facility]) Essential hypertension 03/07/2020 GERD (gastroesophageal reflux disease) Hiatal hernia IBS (irritable bowel syndrome) Pure hypercholesterolemia 03/07/2020 PVD (peripheral vascular disease) ([facility]) Stroke ([facility]) Past Surgical History: Past Surgical History: Procedure Laterality Date ANKLE SURGERY ARM SURGERY (HISTORICAL) Right COLONOSCOPY ESOPHAGEAL DILATION EYE SURGERY 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 HYSTERECTOMY ORTHOPEDIC SURGERY THROMBECTOMY Right 04/06/2024 RLE mechanical thrombectomy (Krzysztof) Admission Diagnosis: Patient Active Problem List Diagnosis Date Noted Aspiration pneumonitis (CMS/HCC) ([facility]) 08/03/2024 Visual disturbance, subjective 07/06/2024 Retinal detachment, right 07/05/2024 Vision loss of right eye 07/05/2024 Acute venous embolism and thrombosis of deep vessels of proximal lower extremity ([facility]) 04/14/2024 Peripheral arterial disease ([facility]) 04/03/2024 Immunodeficiency due to conditions classified elsewhere ([facility]) 07/27/2023 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 ([facility]) 07/27/2023 Bilateral pneumonia 06/16/2022 COVID-19 06/16/2022 Hypothyroidism 06/16/2022 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[facility]) 06/16/2022 Cellulitis 05/18/2022 Nicotine use disorder 05/18/2022 Acute venous embolism and thrombosis of deep vessels of proximal end of right lower extremity ([facility]) 04/19/2024 Atrial fibrillation, unspecified type ([facility]) 04/19/2024 Irritable bowel syndrome with diarrhea 03/07/2020 Microscopic hematuria 03/07/2020 Left retinal detachment 03/07/2020 Hyperglycemia 03/07/2020 Osteopenia of left femoral neck 03/07/2020 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 03/07/2020 Seasonal allergies 03/07/2020 Chronic renal insufficiency, stage III (moderate) ([facility]) 03/07/2020 Major depression, single episode, in complete remission ([facility]) 03/07/2020 Gastroesophageal reflux disease without esophagitis 03/07/2020 Essential hypertension 03/07/2020 Pure hypercholesterolemia 03/07/2020 Overweight 03/07/2020 Psoriasis 03/07/2020 History of cerebrovascular accident 03/07/2020 Atrial fibrillation ([facility]) 03/07/2020 Chronic obstructive pulmonary disease ([facility]) 03/07/2020 Finger osteomyelitis, right ([facility]) 03/06/2020 Medical Precautions: Enhanced Contact Proper PPE [...] OD Hearing: normal Social/Functional History Resident at [facility] at baseline. Goes to therapy and ambulates [...] Stairs) : 15 JH-HLM -HL Score: Walked 10 steps or more (i.e. [...] Goal: keep getting up, get back to [place]. Encounter Problems Encounter Problems (Active) Balance Patient [...] of Care supervision is transferred to a [facility] Therapy Services Physical Therapist. Goals and/or treatment plan was established in collaboration with patient/family/other representatives. Hospitalist Progress Note 08/05/2024 Subjective: Admit Date: 08/03/2024 PCP: Jared Evans MD Room#: [id number] A BRIEF HOSPITAL COURSE: Mel is a 83 y.o. female with past medical history below who presents with chief complaint listed above.Patient is an 83 y/o female who presented to [place] early this AM [place] for [place] and diarrhea. Patient reported she [...] pulmonary disease) (HCC) DVT (deep venous thrombosis) ([facility]) Essential hypertension 03/07/2020 GERD (gastroesophageal reflux disease) Hiatal hernia IBS (irritable bowel syndrome) Pure hypercholesterolemia 03/07/2020 PVD (peripheral vascular disease) ([facility]) Stroke ([facility]) LABS: CBC: Recent Labs 08/03/24 0251 08/04/24 [...] 100 mL/hr, Last Rate: 100 mL/hr (08/05/24 1263) Assessment Data: NA (LOW: 2x CAT1 or [...] Kayden Tatum MD Division of Hospitalist Medicine [facility] Images from the original note were not included. PHYSICAL THERAPY [facility] Name/MRN: Mel Pop ([id number]) Date: 08/05/2024 PT orders received per Vincent activity/mobility score. Patient currently with Vincent activity/mobility score greater than 2. Per therapy services guidelines, will discharge PT orders. Please place regular PT eval/treat orders if deemed appropriate. Padmaja Wilson PT Hospitalist Progress Note 08/04/2024 Subjective: Admit Date: 08/03/2024 PCP: Jared Evans MD Room#: [id number] A BRIEF HOSPITAL COURSE: Mel is a 83 y.o. female with past medical history below who presents with chief complaint listed above.Patient is an 83 y/o female who presented to [place] [facility] early this AM [place] for [place] and diarrhea. Patient reported she [...] kidney disease COPD (chronic obstructive pulmonary disease) ([facility]) DVT (deep venous thrombosis) ([facility]) Essential hypertension 03/07/2020 GERD (gastroesophageal reflux disease) Hiatal hernia IBS (irritable bowel syndrome) Pure hypercholesterolemia 03/07/2020 PVD (peripheral vascular disease) ([facility]) Stroke ([facility]) LABS: CBC: Recent Labs 08/03/24 02508/04/24 0447 WBC 9.1 5.6 RBC 4.65 3.88 [...] DO NOT CALL-TERMINALLY ILL Mobile Relation: Friend aKyden Tatum MD Division of Hospitalist Medicine [facility] documented in this encounter [facility] 08-15-2024 Plan of care note Problem: Knowledge [...] My discharge needs are met Outcome: Progressing [facility] 08-15-2024 Note Formatting of this n ote might be different from the original. Authorization is pending with [employer]. Ref# [id number] to be DC'd to [facility]. Dtr Fidel Updated. CM to follow. [facility] 08-15-2024 Note Formatting of this n ote might be different from the original. Authorization is pending with [employer]. Ref# [id number] to be DC'd to [facility]. Dtr Fidel Updated. CM to follow. [facility] 08-15-2024 Note Patient progressing toward all goals. [facility] 08-15-2024 Plan of care note Patient progressing toward all goals. [facility] 08-14-2024 Plan of care note Problem: Knowledge [...] My discharge needs are met Outcome: Progressing [facility] 08-14-2024 Hospital Discharge instructions Devika Escobar MD [...] Discharging Nurse: Cici Perez Discharging Hospital Unit/Room#: [id number]/[id number] A Discharging Unit Emergency Contact: Extended Emergency Contact Information Primary Emergency Contact: SanchezJosé Miguel/ Fidel Mobile Relation: Mother Secondary Emergency Contact: Damaris Villafana DO NOT CALL-TERMINALLY ILL Mobile Relation: Friend Past [...] Problems Problem List * (Principal) Aspiration pneumonitis (CMS/HCC) (HCC) Bilateral pneumonia Cellulitis COVID-19 Hypothyroidism Immunodeficiency [...] detachment Hyperglycemia Osteopenia of left femoral neck assisted current use of anticoagulant therapy Seasonal allergies [...] lower extremity (HCC) Atrial fibrillation, unspecified type (HCC) Isolation/Infection: Enhanced Contact Norovirus Nurse Assessment: Last [...] assistance Toileting Total assistance Feeding Minimal assistance Legal Consultant Minimal assistance Med Delivery yes Wound Care [...] select all that are sent with patient): [place] RN SIGNATURE: MANAGEMENT/SOCIAL WORK SECTION Inpatient Status Date: 08/03/2024 Discharging to Facility/ Agency Name: [facility] Address: [address] [place] [address] Fax: Dialysis Facility (if applicable) Name: Address: Dialysis Schedule: Phone: Fax: Preschool Director/Windows Support Engineer signature: ICIAN SECTION Name: Mel Pop Prognosis: good Condition at Discharge: stable Rehab Potential (if transferring to Rehab): good Recommended Labs or Other Treatments After Discharge: none The individual is being admitted to a nursing facility directly from an [facility] or a unit of a hospital that is not operated by or licensed by [facility] under section 5119.14 or 5160-3-15.1 5 The individual requires the level of services provided by a nursing facility for the condition for which he or she was treated in the hospital and, Physician Certification: I certify the above information and transfer of Mel Pop is necessary for the continuing treatment of the diagnosis listed and that she requires longterm facility for less than 30 days. Update Admission H&P: No change in H&P PHYSICIAN SIGNATURE: documented in this encounter [facility] 08-14-2024 Note Formatting of this n ote might be different from the original. Pt has Been accepted to [facility]. Need PT/OT to see so auth to be started. Therapy to see today was sent. Called and spoke with Dtbraxton Verdin updates. SNF tasked w update. CM to follow. [facility] 08-14-2024 Note Formatting of this n ote might be different from the original. Pt has Been accepted to [facility]. Need PT/OT to see so auth to be started. Therapy to see today was sent. Called and spoke with braxton Cardozo. SNF tasked w update. CM to follow. [facility] 08-13-2024 Plan of care note Problem: Knowledge [...] My discharge needs are met Outcome: Progressing [facility] 08-13-2024 Note Formatting of this n ote might be different from the original. Referral placed to [facility] via [facility] per TCC request. Await review and response regarding ability to accept. TCC notified. Electronically signed by Christine Morataya [facility], 08-13-2024 at 3:00 PM [facility] 08-13-2024 Note Formatting of this n ote might be different from the original. Referral placed to [facility] via [facility]port per TCC request. Await review and response regarding ability to accept. TCC notified. Electronically signed by Christine Morataya CMA, 08-13-2024 at 3:00 PM [facility] 08-13-2024 Note Referral placed to [facility] via [facility]port per TCC request. Await review and response regarding ability to accept. TCC notified. Electronically signed by Christine Morataya [facility], 08-13-2024 at 3:00 PM [facility] 08-13-2024 Note Formatting of this n ote might be different from the original. Called dgt to talk about dc planning. Dgt continues to tour SNFs this evening, since she was sick this weekend. Provided me with two more SNF choices. [facility]. Tasked [facility] to create these referrals. CM to follow. [facility] 08-13-2024 Note Formatting of this n ote might be different from the original. Called dgt to talk about dc planning. Dgt continues to tour SNFs this evening, since she was sick this weekend. Provided me with two more SNF choices. [facility] Tasked [facility] to create these referrals. CM to follow. [facility] 08-13-2024 Plan of care note Problem: Knowledge [...] My discharge needs are met Outcome: Progressing [facility] 08-12-2024 Note Problem: Knowledge D eficit Goal: Patient/family/caregiver demonstrates understanding of disease process, treatment plan, medications, and discharge instructions Outcome: Progressing [facility] 08-12-2024 Plan of care note Problem: Knowledge Deficit Goal: Patient/family/caregiver demonstrates understanding of disease process, treatment plan, medications, and discharge instructions Outcome: Progressing [facility] 08-12-2024 Plan of care note Problem: Knowledge [...] My discharge needs are met Outcome: Progressing [facility] 08-11-2024 Plan of care note Problem: Knowledge [...] My discharge needs are met Outcome: Progressing [facility] 08-11-2024 Note Formatting of this n ote might be different from the original. CM noted DC orders in place, Dgt touring facilities over the weekend. Moira. [facility] pending acceptance, updates sent via careport. [facility] 08-11-2024 Note Formatting of this n ote might be different from the original. CM noted DC orders in place, Dgt touring facilities over the weekend. Moira. [facility] pending acceptance, updates sent via careport. [facility] 08-11-2024 Plan of care note Problem: Knowledge [...] Interventions Goal: Assess Nutritional Intake Outcome: Progressing [facility] 08-10-2024 Note Formatting of this n ote might be different from the original. Referral placed to [facility] via [facility]port per TCC request. Await review and response regarding ability to accept. TCC notified. Electronically signed by Christine Morataya [facility], 08-10-2024 at 9:23AM [facility] 08-10-2024 Note Formatting of this n ote might be different from the original. Referral placed to [facility] via [facility] per TCC request. Await review and response regarding ability to accept. TCC notified. Electronically signed by Christine Morataya [facility], 08-10-2024 at 9:23AM [facility] 08-10-2024 Note Referral placed to [facility] via [facility]port per TCC request. Await review and response regarding ability to accept. TCC notified. Electronically signed by Christine Morataya [facility], 08-10-2024 at 9:23AM [facility] 08-10-2024 Note Formatting of this n ote might be different from the original. Pt was to be DC to [facility]. Found out pt and dtr didn't want to return to [facility]. SNF was made aware. On adm spoke with Dtr Fidel, ok to return. Called Dtr this am, after speaking with pt and things that happened and didn't happen. Fidel requesting a referral to be made to [facility]. CHANGE ROOM ATTENDANT tasked to send. A SNF list was emailed to Lisa. [email or web address]. She will tour facilities over weekend. CM to follow. [facility] 08-10-2024 Note Formatting of this n ote might be different from the original. Pt was to be DC to [facility]. Found out pt and dtr didn't want to return to [facility]. SNF was made aware. On adm spoke with Dtr Fidel, ok to return. Called Dtr this am, after speaking with pt and things that happened and didn't happen. Fidel requesting a referral to be made to [facility]. CHANGE ROOM ATTENDANT tasked to send. A SNF list was emailed to Lisa. [email or web address]. She will tour facilities over weekend. CM to follow. [facility] 08-10-2024 Plan of care note Problem: Knowledge [...] Interventions Goal: Assess Nutritional Intake Outcome: Progressing [facility] 08-09-2024 Note Formatting of this n ote might be different from the original. Discharge summary and med list sent via [facility] to [facility] per TCC request. [facility] 08-09-2024 Note Formatting of this n ote might be different from the original. Discharge summary and med list sent via [facility] to [facility] per TCC request. [facility] 08-09-2024 Note Discharge summary an d med list sent via [facility] to [facility] per TCC request. [facility] 08-09-2024 Note Formatting of this n ote might be different from the original. Auth received. Patient with active dc orders. Transportation arranged through [employer] with estimated scrap picker time of 1930. VM left with daughter Fidel along with 3N phone number to call with questions. Bedside RN aware. Facility updated. [facility] distribution operation supervisor sent orders to [facility]. [facility] 08-09-2024 Note Formatting of this n ote might be different from the original. Auth received. Patient with active dc orders. Transportation arranged through [employer] with estimated scrap picker time of 1930. VM left with daughter Fidel along with 3N phone number to call with questions. Bedside RN aware. Facility updated. [facility] distribution operation supervisor sent orders to [facility]. [facility] 08-09-2024 Note Formatting of this n ote might be different from the original. product management manager was asked to assist with setting up transport back to [facility] this evening. community youth secretary had already done so, but this underwriting manager called daughter to inform her of discharge and transport set up. Daughter did not wish patient to return to the SNF. Bread Jockey told her that patient is medically stable for dc and that she should continue the discussion with the social science manager and county administrator at The snf, and also get options from [employer]. Coordinator was to message the snf about return this evening via [facility]. [facility] 08-09-2024 Note Formatting of this n ote might be different from the original. product management manager was asked to assist with setting up transport back to [facility] this evening. community youth secretary had already done so, but this underwriting manager called daughter to inform her of discharge and transport set up. Daughter did not wish patient to return to the SNF. Bread Jockey told her that patient is medically stable for dc and that she should continue the discussion with the social science manager and county administrator at The snf, and also get options from [employer]. Coordinator was to message the snf about return this evening via [facility]. [facility] 08-09-2024 Note [facility] 08-09-2024 Hospital course Narrative Hospitalist Discharge [...] an 83 y/o female who presented to [place] [facility] early this AM from local [place] for vomiting and diarrhea. Patient reported she [...] Ellipta 100-62.5-25 MCG/ACT aerosol powder Generic drug: Nsvorvvchmp-Mjjeigdws-Wnnvpo STOP taking these medications enoxaparin 80 MG/0.8ML [...] Complexity: follow up within 7-14 calendar days (19160) [x] Severe Complexity: follow up within 7 calendar days (93863) Follow up Testing, Pending results or Referrals [...] Kael Anderson DO Division of Hospitalist Medicine [facility] 08/09/2024, 4:23 PM documented in this encounter [facility] 08-09-2024 Note Formatting of this n ote might be different from the original. Updated PT/OT notes placed to [facility] via [facility] per TCC request. Await review and response regarding ability to accept. TCC notified. Electronically signed by [facility] Aracelis Gardiner [facility] 08-09-2024 Note Formatting of this n ote might be different from the original. Updated PT/OT notes placed to [facility] via [facility] per TCC request. Await review and response regarding ability to accept. TCC notified. Electronically signed by [facility] Aracelis Gardiner [facility] 08-09-2024 Note Formatting of this n ote might be different from the original. Patient is medically ready for dc. PT/OT both continuing to recommend SNF. CHANGE ROOM ATTENDANT underwriting manager asked to start auth. Plan to dc back to [facility] pending auth [facility] 08-09-2024 Note Formatting of this n ote might be different from the original. Patient is medically ready for dc. PT/OT both continuing to recommend SNF. [facility] underwriting manager asked to start auth. Plan to dc back to [facility] pending auth [facility] 08-08-2024 Note Formatting of this n ote might be different from the original. I was off Yesterday, PT note was in from Tuesday. Therapy to see today was sent out to OT Tuesday to see yesterday. Pt was not seen. I did sent a therapy to see today to PT/OT so an auth can be started. Pt will Be Dc'd to [facility]. CM to follow. [facility] 08-08-2024 Note Formatting of this n ote might be different from the original. I was off Yesterday, PT note was in from Tuesday. Therapy to see today was sent out to OT Tuesday to see yesterday. Pt was not seen. I did sent a therapy to see today to PT/OT so an auth can be started. Pt will Be Dc'd to [facility]. CM to follow. [facility] 08-07-2024 Plan of care note Problem: Knowledge Deficit Goal: Patient/family/caregiver demonstrates understanding of disease process, treatment plan, medications, and discharge instructions Outcome: Progressing Problem: Potential for Compromised Skin Integrity Goal: Skin Integrity is Maintained or Improved Outcome: Progressing Goal: Nutritional status is improving Outcome: Progressing [facility] 08-07-2024 Plan of care note Problem: Knowledge [...] Interventions Goal: Assess Nutritional Intake Outcome: Progressing [facility] 08-07-2024 Note Formatting of this n ote might be different from the original. Case Management Progress Note: Patient remains on 5N for concern with aspiration 2/2 vomiting. Discharge Plan: Return to [facility]. Therapy eval needed for precert. TCC to assist and follow as needed. [facility] 08-07-2024 Note Formatting of this n ote might be different from the original. Case Management Progress Note: Patient remains on 5N for concern with aspiration 2/2 vomiting. Discharge Plan: Return to [facility]. Therapy eval needed for precert. TCC to assist and follow as needed. [facility] [place] 08-07-2024 Plan of care note Problem: Knowledge [...] Interventions Goal: Assess Nutritional Intake Outcome: Progressing [facility] 08-06-2024 Plan of care note Problem: Knowledge [...] Interventions Goal: Assess Nutritional Intake Outcome: Progressing [facility] 08-06-2024 Note Formatting of this n ote might be different from the original. Pt cont's on IV AtBs'. Plan is for pt to return to [facility]. Auth and HECTOR needed prior to DC. CM to follow. [facility] 08-06-2024 Note Formatting of this n ote might be different from the original. Pt cont's on IV AtBs'. Plan is for pt to return to [facility]. Auth and HECTOR needed prior to DC. CM to follow. [facility] 08-06-2024 Note Formatting of this n ote might be different from the original. Per attending pt ready for DC. Pt will return to [facility]. Pt needs PT/OT to start auth Therapy to see put in for alistair so auth can be started. HECTOR will need completed. CM to follow. [facility] 08-06-2024 Note Formatting of this n ote might be different from the original. Per attending pt ready for DC. Pt will return to [facility]. Pt needs PT/OT to start auth Therapy to see put in for alistair so auth can be started. HECTOR will need completed. CM to follow. [facility] 08-06-2024 Consult note Associated Order (s): IP [...] assess Fluid Accumulation: No significant fluid accumulation Manager Corporate Strategy Strength: Not Performed Nutrition Assessment: Pt hx HTN, stroke, COPD, CKD, IBS. Admitted w/ vomiting and diarrhea. +norovirus. Started on abx for concern of aspiration pna. Pt's symptoms have improved during admission. Consuming and tolerating CLD. Medically stable for discharge back to SNF per notes. Estimated Daily Nutrient Needs: Energy Requirements Based On: Kcal/kg Weight Used for Energy Requirements: [place] Weight for Energy Calculation (kg): 54 kg Total Energy Requirements (kcals/day): 1335-1929 Weight Used for Protein Requirements: [place] Weight in Kg Used for Protein Requirements: [...] 160# 07/05) % Weight Change (Calculated): 12.2 [place] Body Weight (lbs) (Calculated): 119 lbs [place] Body Weight (Kg) (Calculated): 54 kg BMI [...] to determine Gabriella Michelle RD, LD Contact: [phone] [facility] 08-06-2024 Consult note Associated Order (s): IP [...] assess Fluid Accumulation: No significant fluid accumulation Manager Corporate Strategy Strength: Not Performed Nutrition Assessment: Pt hx HTN, stroke, COPD, CKD, IBS. Admitted w/ vomiting and diarrhea. +norovirus. Started on abx for concern of aspiration pna. Pt's symptoms have improved during admission. Consuming and tolerating CLD. Medically stable for discharge back to SNF per notes. Estimated Daily Nutrient Needs: Energy Requirements Based On: Kcal/kg Weight Used for Energy Requirements: [place] Weight for Energy Calculation (kg): 54 kg Total Energy Requirements (kcals/day): 2035-1845 Weight Used for Protein Requirements: [place] Weight in Kg Used for Protein Requirements: [...] 160# 07/05) % Weight Change (Calculated): 12.2 [place] Body Weight (lbs) (Calculated): 119 lbs [place] Body Weight (Kg) (Calculated): 54 kg BMI [...] to determine Gabriella Michelle RD, LD Contact: [phone] documented in this encounter [facility] 08-06-2024 Plan of care note Problem: Knowledge Deficit Goal: Patient/family/caregiver demonstrates understanding of disease process, treatment plan, medications, and discharge instructions Outcome: Progressing Problem: Potential for Compromised Skin Integrity Goal: Skin Integrity is Maintained or Improved Outcome: Progressing Goal: Nutritional status is improving Outcome: Progressing Problem: Urinary Incontinence Goal: Perineal skin integrity is maintained or improved Outcome: Progressing [facility] 08-05-2024 Plan of care note Problem: Knowledge Deficit Goal: Patient/family/caregiver demonstrates understanding of disease process, treatment plan, medications, and discharge instructions Outcome: Progressing Problem: Potential for Compromised Skin Integrity Goal: Skin Integrity is Maintained or Improved Outcome: Progressing Goal: Nutritional status is improving Outcome: Progressing Problem: Urinary Incontinence Goal: Perineal skin integrity is maintained or improved Outcome: Progressing [facility] 08-04-2024 Plan of care note Problem: Knowledge Deficit Goal: Patient/family/caregiver demonstrates understanding of disease process, treatment plan, medications, and discharge instructions Outcome: Progressing Problem: Potential for Compromised Skin Integrity Goal: Skin Integrity is Maintained or Improved Outcome: Progressing Goal: Nutritional status is improving Outcome: Progressing Problem: Urinary Incontinence Goal: Perineal skin integrity is maintained or improved Outcome: Progressing [facility] 08-04-2024 Nurse Note Bedside swallow completed. Pt passed and tolerated well tolerated well. [facility] 08-04-2024 Plan of care note Problem: Knowledge Deficit Goal: Patient/family/caregiver demonstrates understanding of disease process, treatment plan, medications, and discharge instructions Outcome: Progressing Problem: Potential for Compromised Skin Integrity Goal: Skin Integrity is Maintained or Improved Outcome: Progressing Goal: Nutritional status is improving Outcome: Progressing Problem: Urinary Incontinence Goal: Perineal skin integrity is maintained or improved Outcome: Progressing [facility] 08-03-2024 Plan of care note Problem: Knowledge [...] 0842 by Lima Saenz RN Outcome: Progressing [facility] 08-03-2024 Note Formatting of this n ote might be different from the original. Return referral placed to [facility] via [facility] per TCC request. Await review and response regarding ability to accept. TCC notified. [facility] 08-03-2024 Note Formatting of this n ote might be different from the original. Return referral placed to [facility] via [facility] per TCC request. Await review and response regarding ability to accept. TCC notified. [facility] 08-03-2024 Note Return referral plac ed to [facility] via [facility] per TCC request. Await review and response regarding ability to accept. TCC notified. [facility] 08-03-2024 Note Formatting of this n ote might be different from the original. Pt to ED w N/V/Diarrhea, was Dx w Aspiration pneumonitis. Started on IV ATB's. Called pt's [facility]idel, . Pt is from [facility]. Plan on returning. [facility] tasked to send a return referral. [facility] 08-03-2024 Note Formatting of this n ote might be different from the original. Pt to ED w N/V/Diarrhea, was Dx w Aspiration pneumonitis. Started on IV ATB's. Called pt's DtrFidel, . Pt is from [facility]. Plan on returning. [facility] tasked to send a return referral. [facility] 08-03-2024 History and physical note Attending History and Physical Admit Date: 08/03/2024 PCP: Jared Evans MD CHIEF COMPLAINT: vomiting/diarrhea Reason for Admission: aspiration pneumonitis History Obtained From: patient HISTORY OF PRESENT ILLNESS: Mel is a 83 y.o. female with past medical history below who presents with chief complaint listed above.Patient is an 83 y/o female who presented to [facility] early this AM from local [place] for vomiting and diarrhea. Patient reported she [...] min Stress: Patient Unable To Answer (08/03/2024) [place] [employer] - Occupational Stress Questionnaire Feeling of Stress : Patient unable to answer Social Connections: Unknown (08/03/2024) Social Connection and Isolation Panel [NHANES] Frequency of Communication with Friends and Family: Patient unable to answer Frequency of Social Gatherings with Friends and Family: Patient unable to answer Attends Islam Services: Patient unable to answer Active Member [...] Friends and Family: Once a week Attends Islam Services: More than 4 times per year [...] mgmt was pursued: - inpatient admission to [facility] tele - check stool studies and [...] VasughassanDamaris NOT CALL-TERMINALLY ILL Mobile Relation: Friend [employer] Mel Pop : 1940 Primary Care Physician: Jared Evans MD The patient and/or family/surrogate voluntarily agreed to participate in ACP services. Patient s cognitive capacity: A&O x 3 Code Status: [_] [FULL CODE - Continue all advanced life support: CPR,intubation,invasive procedures] [x_] [DNR-CCA - DO NOT do CPR, intubation] [_] [DNR-BUSINESS QUALITY ASSURANCE ANALYST - Comfort care only] [_] DNR form [...] Shivani Dimas PA-C Division of Hospitalist Medicine [facility] Cosigned by Abbi Long DO at 08/03/2024 [...] sounds present no guarding or regular rigidity [employer] Work Phone: 08-03-2024 Note [employer] 08-03-2024 History and physical note Attending History and Physical Admit Date: 08/03/2024 PCP: Jared Evans MD CHIEF COMPLAINT: vomiting/diarrhea Reason for Admission: aspiration pneumonitis History Obtained From: patient HISTORY OF PRESENT ILLNESS: Mel is a 83 y.o. female with past medical history below who presents with chief complaint listed above.Patient is an 83 y/o female who presented to [place] [facility] early this AM from [place] for vomiting and [place]. Patient reported she [...] Resource Strain: Low Risk (06/20/2024) Received from [facility] Medical Overall Financial Resource Strain [...] min Stress: Patient Unable To Answer (08/03/2024) [place] [employer] - Occupational Stress Questionnaire Feeling of Stress : Patient unable to answer Social Connections: Unknown (08/03/2024) Social Connection and Isolation Panel [NHANES] Frequency of Communication with Friends and Family: Patient unable to answer Frequency of Social Gatherings with Friends and Family: Patient unable to answer Attends Islam Services: Patient unable to answer Active Member of Clubs or Organizations: Patient unable to answer Attends Club or Organization Meetings: Never Marital Status: Patient unable to answer Recent Concern: Social Connections - Moderately Isolated (06/20/2024) Received from [facility] Medical Social Connection and Isolation Panel [NHANES] Frequency of Communication with Friends and Family: More than three times a week Frequency of Social Gatherings with Friends and Family: Once a week Attends Islam Services: More than 4 times per year [...] Mood normal. DATA: CBC: Recent Labs 08/03/24 025 WBC 9.1 RBC 4.65 HGB 12.1 HCT [...] mgmt was pursued: - inpatient admission to [facility] tele - check stool studies and [...] Villafana NOT CALL-TERMINALLY ILL Mobile Relation: Friend [employer] Mel Pop : 1940 Primary Care Physician: Jared Evans MD The patient and/or family/surrogate voluntarily agreed to participate in ACP services. Patient s cognitive capacity: A&O x 3 Code Status: [_] [FULL CODE - Continue all advanced life support: CPR,intubation,invasive procedures] [x_] [DNR-CCA - DO NOT do CPR, intubation] [_] [DNR-BUSINESS QUALITY ASSURANCE ANALYST - Comfort care only] [_] DNR form [...] Shivani Dimas PA-C Division of Hospitalist Medicine [facility] Cosigned by Abbi Long DO at 08/03/2024 [...] or regular rigidity documented in this encounter [facility] 08-03-2024 Plan of care note Problem: Potential for Compromised Skin Integrity Goal: Skin Integrity is Maintained or Improved 08/03/2024 0842 by Lima Saenz RN Outcome: Progressing 08/03/2024 0842 by Lima Saenz RN Outcome: Progressing Problem: Potential for Compromised Skin Integrity Goal: Nutritional status is improving 08/03/2024 0842 by Lima Saenz RN Outcome: Progressing 08/03/2024 0842 by Lima Saenz RN Outcome: Progressing [facility] 08-03-2024 Plan of care note Problem: Knowledge Deficit Goal: Patient/family/caregiver demonstrates understanding of disease process, treatment plan, medications, and discharge instructions Outcome: Progressing Problem: Potential for Compromised Skin Integrity Goal: Skin Integrity is Maintained or Improved Outcome: Progressing [facility] 08-03-2024 Emergency department Note Pt placed in roundtrip [facility] 08-03-2024 Emergency department Note Pt placed in [...] who presents to the emergency department from [facility] for acute onset nausea/vomiting/diarrhea x 3 episodes that began 45 minutes prior to arrival. No blood in emesis or diarrhea. Given single dose of Zofran by residential staff following first episode but subsequently soon [...] 45 minutes prior to ED transport for residential. intermediate reports a second resident with similar symptoms earlier today. No known flu or COVID exposures. Patient denying other flu or COVID symptoms such as headache, myalgias, fevers, congestion, cough. Nursing Notes were reviewed. Limitations to history: None Outside historians: intermediate staff (Jabari) REVIEW OF SYSTEMS Review of [...] Resource Strain: Low Risk (06/20/2024) Received from [facility] Medical Overall Financial Resource Strain (CARDIA) Difficulty of Paying Living Expenses: Not very hard Food Insecurity: No Food Insecurity (07/09/2024) Received from [facility] Hunger Vital Sign Worried About Running Out of Food in the Last Year: Never true Ran Out of Food in the Last Year: Never true Transportation Needs: No Transportation Needs (07/09/2024) Received from [facility] PRAPARE - Transportation Lack of Transportation (Medical): No Lack of Transportation (Non-Medical): No Physical Activity: Inactive (04/04/2024) Exercise Vital Sign Days of Exercise per Week: 0 days Minutes of Exercise per Session: 0 min Stress: No Stress Concern Present (06/19/2024) Received from [facility] [employer] - Occupational Stress Questionnaire Feeling of Stress : Not at all Social Connections: Moderately Isolated (06/20/2024) Received from [facility] Medical Social Connection and Isolation Panel [NHANES] Frequency of Communication with Friends and Family: More than three times a week Frequency of Social Gatherings with Friends and Family: Once a week Attends Islam Services: More than 4 times per year Active Member of Clubs or Organizations: No Attends Club or Organization Meetings: Never Marital Status: Intimate Partner Violence: Not At Risk (06/19/2024) Received from [facility] Medical Domestic Abuse Assessment Do you feel safe in your relationships at home?: Yes Physical Abuse: Denies Verbal Abuse: Denies Housing Stability: Low Risk (07/09/2024) Received from [facility] Housing Stability Vital Sign Unable to [...] No bowel dilatation Report Dictated on Workstation: RealD Electronically Signed By: Ming Fry MD Electronically [...] In compliance with this authorization, please visit www.fda.gov/media/877643/download or www.fda.gov/media/658752/download to access the applicable information sheets. LIPASE [...] who presents to the emergency department from [facility] for acute onset nausea/vomiting/diarrhea x 3 episodes that began 45 minutes prior to arrival. No blood in emesis or diarrhea. Given single dose of Zofran by residential staff following first episode of emesis but [...] 45 minutes prior to ED transport for residential. intermediate reports a second resident with similar symptoms [...] baseline. Patient admitted to medical service at [facility] under Dr. Parrish. ED Medications managed: Medications ondansetron (Zofran) injection 4 mg (4 mg IntraVENous Given 08/03/24 0255) famotidine (Pepcid) 20 mg in sodium chloride (PF) 0.9 % 10 mL injection (20 mg IntraVENous Given 08/03/24 0255) morphine injection 2 mg (2 mg IntraVENous Given 08/03/24 0255) promethazine (Phenergan) injection 25 mg (25 mg IntraMUSCular Given 08/03/24 0406) FINAL IMPRESSION 1. Aspiration pneumonitis (CMS/HCC) ([facility]) 2. Vomiting and diarrhea 3. LORENZA (acute kidney injury) ([facility]) DISPOSITION Observation 08/03/2024 04:20:39 AM PATIENT REFERRED [...] DO 08/03/24 0422 documented in this encounter [facility] 08-03-[address] ED CT and ED xray notified that patient is ready [facility] 08-03-2024 Physician Emergency department Note EMERGENCY DEPARTMENT [...] who presents to the emergency department from [facility] for acute onset nausea/vomiting/diarrhea x 3 episodes that began 45 minutes prior to arrival. No blood in emesis or diarrhea. Given single dose of Zofran by residential staff following first episode but subsequently soon [...] 45 minutes prior to ED transport for residential. intermediate reports a second resident with similar symptoms earlier today. No known flu or COVID exposures. Patient denying other flu or COVID symptoms such as headache, myalgias, fevers, congestion, cough. Nursing Notes were reviewed. Limitations to history: None Outside historians: intermediate staff (Jabari) REVIEW OF SYSTEMS Review of Systems Negative except per HPI PAST MEDICAL HISTORY Past Medical History: Diagnosis Date Arrhythmia PAF Asthma Chronic kidney disease COPD (chronic obstructive pulmonary disease) ([facility]) DVT (deep venous thrombosis) ([facility]) Essential hypertension 03/07/2020 GERD (gastroesophageal reflux disease) [...] Resource Strain: Low Risk (06/20/2024) Received from [facility] Medical Overall Financial Resource Strain (CARDIA) Difficulty of Paying Living Expenses: Not very hard Food Insecurity: No Food Insecurity (07/09/2024) Received from [facility] Hunger Vital Sign Worried About Running Out of Food in the Last Year: Never true Ran Out of Food in the Last Year: Never true Transportation Needs: No Transportation Needs (07/09/2024) Received from [facility] PRAPARE - Transportation Lack of Transportation (Medical): No Lack of Transportation (Non-Medical): No Physical Activity: Inactive (04/04/2024) Exercise Vital Sign Days of Exercise per Week: 0 days Minutes of Exercise per Session: 0 min Stress: No Stress Concern Present (06/19/2024) Received from [facility] [employer] - Occupational Stress Questionnaire Feeling of Stress : Not at all Social Connections: Moderately Isolated (06/20/2024) Received from [facility] Medical Social Connection and Isolation Panel [NHANES] Frequency of Communication with Friends and Family: More than three times a week Frequency of Social Gatherings with Friends and Family: Once a week Attends Islam Services: More than 4 times per year Active Member of Clubs or Organizations: No Attends Club or Organization Meetings: Never Marital Status: Intimate Partner Violence: Not At Risk (06/19/2024) Received from [facility] Medical Domestic Abuse Assessment Do you feel safe in your relationships at home?: Yes Physical Abuse: Denies Verbal Abuse: Denies Housing Stability: Low Risk (07/09/2024) Received from [facility] Housing Stability Vital Sign Unable to [...] No bowel dilatation Report Dictated on Workstation: RealD Electronically Signed By: Ming Fry MD Electronically [...] In compliance with this authorization, please visit www.fda.gov/media/093211/download or www.fda.gov/media/637329/download to access the applicable information sheets. LIPASE [...] who presents to the emergency department from [facility] for acute onset nausea/vomiting/diarrhea x 3 episodes that began 45 minutes prior to arrival. No blood in emesis or diarrhea. Given single dose of Zofran by residential staff following first episode of emesis but [...] 45 minutes prior to ED transport for residential. intermediate reports a second resident with similar symptoms [...] baseline. Patient admitted to medical service at [facility] under Dr. Parrish. ED Medications managed: Medications ondansetron (Zofran) injection 4 mg (4 mg IntraVENous Given 08/03/24 025) famotidine (Pepcid) 20 mg in sodium chloride (PF) 0.9 % 10 mL injection (20 mg IntraVENous Given 08/03/24 0255) morphine injection 2 mg (2 mg IntraVENous Given 08/03/24 0255) promethazine (Phenergan) injection 25 mg (25 mg IntraMUSCular Given 08/03/24 0406) FINAL IMPRESSION 1. Aspiration pneumonitis (CMS/HCC) ([facility]) 2. Vomiting and diarrhea 3. LORENZA (acute kidney injury) ([facility]) DISPOSITION Observation 08/03/2024 04:20:39 AM PATIENT REFERRED [...] Medicine Provider Mariana King DO 08/03/24 0422 [facility] 08-01-2024 Instructions Savana Lopez MD - 08/01/2024 1:06 PM EST - Continue Pred forte 4x / day right eye - Stop Cipro - Stop Brimonidine - Continue erythromycin antibiotic ointment as needed - Continue Atropine daily RIGHT eye - Continue Timolol 2x / day RIGHT EYE documented in this encounter [facility] 08-01-2024 Note HNO ID: [id number] Author: SAVANA LOPEZ MD Service: ? Author [...] choroidals (not yet appositional) - Evaluated at [place] 07/12/24 with intense nausea and multiple episodes [...] to HTN (SBP 199/99 at presentation to [facility]) and anticoagulation that led to angle closure [...] agree with all of its relevant components. [facility] 08-01-2024 History of Present illness Narrative POW [...] choroidals (not yet appositional) - Evaluated at [place] 07/12/24 with intense nausea and multiple episodes [...] to HTN (SBP 199/99 at presentation to [facility]) and anticoagulation that led to angle closure [...] its relevant components. documented in this encounter [facility] 07-30-2024 Note HNO ID: [id number] Author: JOHN PHELAN MD Service: ? Author [...] agree with all of its relevant components. [facility] 07-30-2024 Note HNO ID: [id number] Author: JOHN PHELAN MD Service: ? Author [...] agree with all of its relevant components. [facility] 07-27-2024 Instructions Nicolas Sahu MD - 07/27/2024 [...] day Ciprofloxacin (flores cap) 4x daily Atropine (shore hand dredge or barge) 1x daily Continue timolol (yellow cap) 2x [...] C Trouble breathing Contact Dr. Savana Lopez [phone] from 8am-5pm During non-business hours, please call [phone] or ext [phone] and ask for the eye doctor brickmason. documented in this encounter [facility] 07-27-2024 Note HNO ID: [id number] Author: NICOLAS SAHU MD Service: ? Author Type: Fellow Type: Progress Notes Filed: 07/30/2024 14:23 Note Text: Post-op Day #1 Choroidal drainage/PPV/EL/PFO/FAX/C3F8 (16%) right eye on 07/27/24 for choroidal hemorrhage and retinal detachment (Chelita/Luis Alberto) - Doing well - Bare HM [...] scheduled Nicolas Sahu MD Vitreoretinal Surgery Fellow [facility] 07-27-2024 History of Present illness Narrative Post-op [...] Vitreoretinal Surgery Fellow documented in this encounter [facility] 07-27-2024 Note HNO ID: [id number] Author: MIKHAIL NICHOLS APRN.SCHOOL BUS TECHNICIAN Service: ? Author Type: Nurse Expansion Envelope Maker Hand Type: Anesthesia Procedure Notes Filed: 07/27/2024 11:25 Note Text: ANESTHESIOLOGY PROCEDURE NOTE Airway General Information Procedure Start Time/Medication Administration: 07/27/2024 11:21 AM Procedure End Time: 07/27/2024 11:24 AM Staffing Anesthesiologist: Robinson Brunner MD SCHOOL BUS TECHNICIAN: Mikhail Nichols APRN.SCHOOL BUS TECHNICIAN Performed by: anesthesiologist and SCHOOL BUS TECHNICIAN Indications and Patient Condition Indications for airway management: anesthesia Preoxygenated: yes Patient position: sniffing Method: asleep Final Airway Details Final airway type: supraglottic airway Number of attempts at approach: 1 Final Supraglottic Airway: LMA Classic Size 4 Seal Adequate: yes Failed airway: no Unrecognized esophageal intubation: no SIGNATURE: Mikhail Nichols APRN.SCHOOL BUS TECHNICIAN PATIENT NAME: Mel Castillo DATE: July 27, 2024 TIME: 11:24 AM CSN: [id number] [facility] 07-24-2024 Note Date of Procedure 07/23/2024. Aircraft Assembler Information Candy Mixer: WESLEY. Start time: 10:44 AM. No view. In wheelchair. Unable to get low enough for photo in downgaze without discomfort. Notes Hazy view, VH; choroidals; possible RD ZEISS 07-24-2024 Note Date of Procedure 07/23/2024. Aircraft Assembler Information STEWART Donovan CDOS 07/23/2024 11:[address] Lopez. [...] 20mg - Decrease atropine daily right eye (shore hand dredge or barge) - Continue prednisolone QID right eye (pink [...] 30 days before your surgery. My surgical specialist will be contacting you to schedule this appointment. Your exact time of surgery will not be determined until the day before surgery. My surgical specialist will call you the day before your surgery to advise you what time to arrive at the Surgery Pav[facility] on the first floor at the [facility]. My surgical specialist is Gaston, her number is [phone] Please do no wear contact lenses. We [...] retina fellow. It will be at the [facility] on the 2nd floor. We will [...] Regine Gan in the Pre-anesthesia Consultation Clinic ([phone]) to get instructions on their use before [...] call Regine Gan or a Pre-Anesthesia Testing cylinder steamer at [phone]. documented in this encounter [facility] 07-23-2024 Note HNO ID: [id number] Author: SAVANA LOPEZ MD Service: ? Author [...] choroidals (not yet appositional) - Evaluated at [place] 07/12/24 with intense nausea and multiple episodes [...] to HTN (SBP 199/99 at presentation to [facility]) and anticoagulation that led to angle closure [...] agree with all of its relevant components. [facility] 07-23-2024 History of Present illness Narrative Interval: [...] to HTN (SBP 199/99 at presentation to [facility]) and anticoagulation that led to angle closure [...] for choroidal hemorrhage with repositioning of IOL (Kareno/Luis Alberto) - Today IOP low; from RD?? [...] its relevant components. documented in this encounter [facility] 07-18-2024 Note HNO ID: [id number] Author: JACI JUAREZ RN Service: Nursing Author Type: Registered Nurse Type: Progress Notes Filed: 07/18/2024 14:08 Note Text: Report given to nurse at [facility]. Transport running behind schedule. [facility] 07-16-2024 Note HNO ID: [id number] Author: IMCHAEL SOARES MD Service: Ophthalmology Author Type: Resident Type: Plan of Care Filed: 07/16/2024 21:02 Note Text: Patient evaluated today at [facility] by retina attending Dr. Lopez. Assessment/plan [...] choroidals (not yet appositional) - Evaluated at [place] 07/12/24 with intense nausea and multiple episodes [...] to HTN (SBP 199/99 at presentation to [facility]) and anticoagulation that led to angle closure [...] be admitted for this but may need longterm facility due to limited vision in her monocular eye; she has a very poor prognosis; there is no guarantee surgery will improve her vision but need to wait for any possible surgery for more liquefaction; maybe could do 07/31/24? - I will see her in 1 week for repeat B-scan OD / Optos OD" [facility] 07-16-2024 Note HNO ID: [id number] Author: ALAINA TIPTON RN Service: ? Author Type: Registered Nurse Type: Progress Notes Filed: 07/16/2024 19:27 Note Text: At 15:00 PM, Per Doctor Car, place connector to Call Light for the patient. Clip placed onto the Call Light for patient to reach. Sign placed onto the patient's door to set patient up to eat, and assist feed. Doctor Josep, on the division, and aware. [facility] 07-16-2024 Note HNO ID: [id number] Author: TRACEY NANCE RN Service: Care Management Author Type: Registered Nurse Type: Care Mgt Progress Note Filed: 07/16/2024 16:49 Note Text: CARE MANAGEMENT PROGRESS NOTE SERVICE DATE: 07/16/2024 SERVICE TIME: 1:04 PM LOS: 9 days Post-Acute Discharge Planning Patient Goal(s): Increase strength Jefferson of Choice Explained: Discharge Planning Participant(s): Patient/Family Comments: Anticipated # of Days Until Discharge: 0 Transport at Discharge: Needs Prior to Discharge: Needs Prior to Discharge: OT/PT Evaluation Post-Acute Discharge Plan: Discharge to [facility] per [facility]. Await updated PT for pre cert initiation. SIGNATURE: Tracey Nance RN PATIENT NAME: Mel Castillo DATE: July 16, 2024 TIME: 1:[address] [facility] 07-16-2024 Note Date of Procedure 07/16/2024. Aircraft Assembler Information Candy Mixer: Arin Vital. Start time: 8:56 AM. Stop time: 8:56 AM. 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 Aircraft Assembler Information STEWART Donovan 07/16/2024 9:34 AM . [...] choroidals (not yet appositional) - Evaluated at [place] 07/12/24 with intense nausea and multiple episodes [...] be admitted for this but may need longterm facility due to limited vision in her [...] its relevant components. documented in this encounter [facility] 07-16-2024 Note HNO ID: [id number] Author: SAVANA LOPEZ MD Service: ? Author [...] to HTN (SBP 199/99 at presentation to [facility]) and anticoagulation that led to angle closure [...] be admitted for this but may need longterm facility due to limited vision in her [...] of its relev (more content not included)... [facility] 07-16-2024 Note HNO ID: [id number] Author: BRIANA PRITCHARD MD Service: General Internal Medicine Author Type: Physician Type: Progress Notes Filed: 07/16/2024 14:26 Note Text: Internal Medicine - Dae Chaudhry Progress Note Patient Name: Mel Castillo Patient Location: 60 [id number]/[id number] Admission Date: 07/07/2024 Length of Stay: 9 Primary Service: DAE Chaudhry Staff: Briana Pritchard MD Primary Service: Dae Chaudhry INTERVAL HISTORY: - No acute events overnight. Bradycardic to 50s overnight but this AM HDS and afebrile - This AM seen by ophthalmology at [facility] Opt appointment Objective MEDICATIONS: Current Facility-Administered Medications Medication [...] Drain Duration External Collection Device 07/15/24 1000 [facility] <1 day Intake/Output 07/12/24 0700 - 07/13/24 0659 07/13/24 0700 - 07/14/24 0659 07/14/24 0700 - 07/15/24 0659 07/15/24 0700 - 07/16/24 0659 Intake (ml) 675 200 0 480 Output (ml) -- 0 -- -- Net (ml) 675 200 0 480 Last Weight: 68.9 kg (152 lb) (07/15/241745) Admit Weight: 68.9 kg (152 lb) (07/15/241745) LABS: CBC: Recent Labs 07/16/24 0544 07/15/24 [...] PMH of COPD (more content not included)... [facility] 07-15-2024 Note HNO ID: [id number] Author: OTILIO GERBER MD Service: Ophthalmology Author [...] right eye on 07/13/24 for choroidal hemorrhage (Mammo/Luis Alberto) - Doing better - IOP 18, [...] BRING PATIENT DOWN FOR FOLLOW UP AT [facility] - Post-op precautions reviewed, including: Signs and symptoms of endophthalmitis, and retinal detachment warning signs reviewed, including increasing floaters, flashes or changes in peripheral vision. [facility] 07-15-2024 Note HNO ID: [id number] Author: BRIANA PRITCHARD MD Service: General Internal Medicine Author Type: Physician Type: Progress Notes Filed: 07/15/2024 12:59 Note Text: Internal Medicine - Dae Chaudhry Progress Note Patient Name: Mel Castillo Patient Location: H060 [id number]/[id number] Admission Date: 07/07/2024 Length of Stay: 8 [...] 9.1 9.3 9.3 (more content not included)... [facility] 07-14-2024 Note HNO ID: [id number] Author: BRIANA PRITCHARD MD Service: Hospital Medicine Author Type: Physician Type: Progress Notes Filed: 07/14/2024 13:37 Note Text: Internal Medicine - Dae Chaudhry Progress Note Patient Name: Mel Castillo Patient Location: [place] [id number] Admission Date: 07/07/2024 Length of Stay: 7 [...] 24h Temp: 36.6 ?C (97.9 ?F) (07/14/24 09) Temp Min: 36.3 ?C (97.3 ?F) Max: 36.8 ?C (98.2 ?F) Pulse: 78 (07/14/24941) Pulse Min: 59 Max: 115 Resp: 18 (07/14/24941) Resp Min: 15 Max: 18 BP: (!) 143/44 (07/14/24941) BP Min: 82/50 Max: 167/84 MAP Non Invasive (Mean Arterial Pressure): 67 (07/14/24941) MAP Non Invasive (Mean Arterial Pressure) Min: [...] Castillo is a (more content not included)... [facility] 07-14-2024 Note HNO ID: [id number] Author: NICOLAS SAHU MD Service: Ophthalmology Author [...] choroidals (not yet appositional) - Evaluated at [place] 07/12/24 with intense nausea and multiple episodes [...] to HTN (SBP 199/99 at presentation to [facility]) that caused angle closure and elevated IOP [...] vision. Nicolas Sahu MD Vitreoretinal Surgery Fellow [facility] 07-13-2024 Note HNO ID: [id number] Author: MARCIA MARTINS APRN.SCHOOL BUS TECHNICIAN Service: ? Author Type: Nurse Expansion Envelope Maker Hand Type: Anesthesia Procedure Notes Filed: 07/13/2024 12:43 Note Text: ANESTHESIOLOGY PROCEDURE NOTE Airway General Information Procedure Start Time/Medication Administration: 07/13/2024 12:28 PM Procedure End Time: 07/13/2024 12:42 PM Patient location during procedure: OR Timeout Performed Pre-procedure: timeout performed Consent Obtained: Yes Patient identity confirmed: arm band, care cylinder steamer and patient Staffing SCHOOL BUS TECHNICIAN: Marcia Martins APRN.SCHOOL BUS TECHNICIAN Performed by: SCHOOL BUS TECHNICIAN Indications and Patient Condition Indications for airway management: anesthesia Preoxygenated: yes anesthesia circuit Method: sleep Difficult Mask: No Final Airway Details Final airway type: supraglottic airway Number of attempts at approach: 1 Final Supraglottic Airway: Supraglottic airway: ambu auraonce. Size 4 Seal Adequate: yes Failed airway: no Unrecognized esophageal intubation: no Airway not difficult Comments atraumatic SIGNATURE: Marcia Martins, VOCATIONAL EDUCATION PROFESSIONAL.CARIE PATIENT NAME: Mel Castillo DATE: July 13, 2024 TIME: 12:42 PM CSN: [id number] [facility] 07-13-2024 Note HNO ID: [id number] Author: FELICIA LEVY MD Service: General Internal [...] of vision now s/p laser iridotomy at [facility] then trasnferred to [facility] for further management. S/p multiple peripheral [...] mg ORAL DAILY (more content not included)... [facility] 07-12-2024 Note HNO ID: [id number] Author: TRACEY NANCE RN Service: Care Management Author Type: Registered Nurse Type: Care Mgt Progress Note Filed: 07/12/2024 16:50 Note Text: CARE MANAGEMENT PROGRESS NOTE SERVICE DATE: 07/12/2024 SERVICE TIME: 4:46 PM LOS: 5 days Post-Acute Discharge Planning Patient Goal(s): Increase strength Jefferson of Choice Explained: Discharge Planning Participant(s): Patient/Family Comments: Anticipated # of Days Until Discharge: 0 Transport at Discharge: Needs Prior to Discharge: Post-Acute Discharge Plan: Await SNF choices spoke w/ daughter in law Fidel Garcia sent to [facility] yesterday. This CM reached out to [facility] via email for choices. Daughter In law cannot recall selections. covering CM will need to reach out to [facility] tomorrow for selections that were emailed to her. SIGNATURE: Tracey Nance RN PATIENT NAME: Mel Castillo DATE: July 12, 2024 TIME: 4:[address] [facility] 07-12-2024 Note Date of Procedure 07/12/2024. Aircraft Assembler Information CHAR Veliz ROUB 07/12/2024 12:15 PM . Notes B scan OD: From wheelchair. Patient vomiting during this visit. Best images possible. 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 Possible increased height maximum now at 12:00 measuring 10.0 mm. 2) Not able to assess for mobility today due to patient discomfort 3) SRF over choroidals in three quadrants. [facility] 07-12-2024 Note Date of Procedure 07/12/2024. Aircraft Assembler Information Candy Mixer: JACQUELINE. Imaging Comments: Limited exam due to patient discomfort-best images possible . Notes Worsening choroid detachments [facility] 07-12-2024 Note HNO ID: [id number] Author: THOMAS SCHMITZ MD Service: ? 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 Phelan [facility] 07-12-2024 History of Present illness Narrative Interval [...] choroidals (not yet appositional) - Evaluated at [place] 07/12/24 with intense nausea and multiple episodes [...] to HTN (SBP 199/99 at presentation to [facility]) that caused angle closure and elevated IOP [...] with Dr. Phelan documented in this encounter [facility] 07-12-2024 Note HNO ID: [id number] Author: FELICIA LEVY MD Service: General Internal [...] of vision now s/p laser iridotomy at [facility] then trasnferred to [facility] for further management. S/p multiple peripheral [...] possible dispo to SNF or home with [facility] (challenging given multiple daily eye drops and medications) - Rest per excellent note by resident Signature: Felicia Levy MD Date: 07/12/2024 Time: 1:27 PM Internal Medicine - Dae Chaudhry Progress Note Patient Name: Mel Castillo [address] Admission Date: 07/07/2024 Length of Stay: 5 Primary Service: DAE Chaudhry Staff: Felicia Levy* Primary Service: Dae Chaudhry INTERVAL HISTORY: - NAEO. - Afebrile. VSS. - Worsening eye pain today. 02/24. Deep throbbing pain with gritty eye sensation. [...] ORAL BID HYDROmorpho (more content not included)... [facility] 07-11-2024 Note HNO ID: [id number] Author: FELICIA LEVY MD Service: General Internal [...] of vision now s/p laser iridotomy at [facility] then trasnferred to [facility] for further management. S/p multiple peripheral [...] [id number]/[id number] Admission Date: 07/07/2024 Length of Stay: 4 [...] H PRN AL (more content not included)... [facility] 07-10-2024 Note HNO ID: [id number] Author: FELICIA LEVY MD Service: General Internal [...] of vision now s/p laser iridotomy at [facility] then trasnferred to [facility] for further management. S/p multiple peripheral [...] Note Patient Name: Mel Castillo [address] Admission Date: 07/07/2024 Length of Stay: 3 [...] Range in last (more content not included)... [facility] 07-09-2024 Note HNO ID: [id number] Author: TRACEY NANCE RN Service: Care Management [...] Relation: Other Admission Status: Inpatient Insurance Provider: [employer] MEDICARE PPO Discharge Planning requested by: Per Department Practice Potential Transition Plans Home Care Advance Directives Current Advance Directive: Health Care Power of Plc Engineer In Chart: Yes Up To Date and Valid: Yes Current Living Arrangements and Support Lives with: Alone Type of Residence: Mobile Home Support: Friends/neighbors, Family members How do you manage to accomplish the following: Independent: Ambulation;Bathe/Shower;Dress;Angélica g to the bathroom Needs Assistance: Meals/Meal Prep;Medication Management;Transportation to appointments/community Current Services/Equipment Discharge Planning Patient Goal(s): Increase strength Jefferson of Choice Explained: Jefferson of Choice Given: Yes Level of Care Discussed: Home Care Are you interested in bedside delivery of your medications? Yes Discharge Planning Participant(s): Caregiver;Family Patient/Family Comments: Fidel Hdez (Other) Caregiver Assessment: Caregiver is ready, willing and able to meet the patient's needs as recommended by the inter-professional team: (friends) Transport at Discharge: Transportation Arrangements: Car Destination: [address] [place] [address] [address] [facility] [address] Needs Prior to Discharge: Post-Acute Discharge Plan: Anticipate DC home with C 24-48 hours. HC referrals placed . Await OT evaluation. Patient lives alone in trailer , There are 4 steps to entrance, Using rolator prior to admission. Patient independent with ADL and assist with iADL prior to admission.Patient receives meals on wheels. Family transport to appointments and can provide parts consultant assist. Family transport home. This CM spoke with sister in law for initial assessment. Per sister in law. Family is concerned with DC home with current vision status as patient does not have 24/7 supervision. Concerned with patient seeing her meds . Concerned for falls. Family works during day . Request medical team to follow up with Fidel regarding medical plans and possible future surgery. SIGNATURE: Tracey Nance RN PATIENT NAME: Mel Castillo DATE: July 09, 2024 TIME: 4:[address] [facility] 07-09-2024 Note HNO ID: [id number] Author: NADIA VIDAL ? Service: Pharmacy Author Type: Mamma Logist Type: Plan of Care Filed: 07/09/2024 12:31 Note Text: Insurance investigation completed Patient has active prescription insurance: Yes - Patient's insurance is in-network with [facility] Insurance loaded into Tobias: Yes Test claim was completed to verify insurance is active: Successful Any questions, please reach out to your medication automotive accessory installer. [facility] 07-09-2024 Note HNO ID: [id number] Author: GISSELL POPE RPh Service: Pharmacy Author Type: Pharmacist Type: Plan of Care Filed: 07/09/2024 12:32 Note Text: PHARMACY MEDICATION REVIEW Patient Name: Mel Castillo : 1940 The following medications were updated within the EP TECHNOLOGIST medication list: Medications ADDED to EP TECHNOLOGIST medication list Furosemide 40 mg prn swelling Medications CHANGED on EP TECHNOLOGIST medication list Lisinopril 10 mg changed to 40 mg Increased from 5 mg daily to 40 mg daily on last hospital discharge Medications REMOVED from EP TECHNOLOGIST medication list Albuterol HFA PRN Lidocaine 4% [...] Yes Completed by: Gissell Pope RPh All EP TECHNOLOGIST medications addressed by LIP Patient interested in Bedside Delivery Services or using OP Pharmacy at discharge? Yes. Discharge Pharmacy Updated Preferred outpatient pharmacy: e- [facility]/pharmacy #[id number] [place] [address] [address] [phone] [facility] Allergies: Percocet [Oxycodone* Itching Prior [...] Inject 0.7 mL subcutaneously every 12 hours. rteiuzjnrci-mefofokmv-vfrkqmdp (TRELEGY ELLIPTA) 100-62.5-25 mcg inhalation powder 07/06/2024 [...] Drop (MYDRIACYL) None recorded [address] [facility] 07/09/[address] [facility] 07-09-2024 Note HNO ID: [id number] Author: OTILIO GERBER MD Service: ? Author Type: Resident Type: Progress Notes Filed: 07/09/2024 10:33 Note Text: OPHTHALMOLOGY CONSULT PROGRESS NOTE Patient Name: Mel Castillo Patient Admission Date: 07/07/2024 Today's Date: 07/09/24 Interval history: - CT orbits reviewed with good globe contour no evidence of open globe, known choroidal detachments present -Still with 8/10 pain OD improved form 04/26 on presentation Assessment/Plan: PMH: COPD, HLD, HTN, [...] to HTN (SBP 199/99 at presentation to [facility]) that caused angle closure and elevated IOP [...] Follow up with Dr. Lopez Monday 07/16 [facility] -Can continue anticoagulation -Patient can [...] NLP vision Otilio Gerber MD Ophthalmology Resident [facility] Patient seen and discussed with Dr. Phelan [facility] 07-09-2024 History of Present illness Narrative OPHTHALMOLOGY CONSULT PROGRESS NOTE Patient Name: Mel Castillo Patient Admission Date: 07/07/2024 Today's Date: 07/09/24 Interval history: - CT orbits reviewed with good globe contour no evidence of open globe, known choroidal detachments present -Still with 02/24 pain OD improved form 04/26 on presentation Assessment/Plan: PMH: COPD, HLD, HTN, [...] to HTN (SBP 199/99 at presentation to [facility]) that caused angle closure and elevated IOP [...] Follow up with Dr. Lopez Monday 07/16 [facility] eye clinic -Can continue anticoagulation -Patient can [...] NLP vision Otilio Gerber MD Ophthalmology Resident [facility] Patient seen and discussed with Dr. Phelan documented in this encounter [facility] 07-09-2024 Note HNO ID: [id number] Author: FELICIA LEVY MD Service: General Internal [...] of vision now s/p laser iridotomy at [facility] then trasnferred to [facility] for further management. S/p multiple peripheral [...] Note Patient Name: Mel Castillo [address] Admission Date: 07/07/2024 Length of Stay: 2 [...] last 24h Temp: 36.7 ?C (98.1 ?F) (07/09/24 040) Temp Min: 36.4 ?C (97.5 ?F) Max: 36.8 ?C (98.2 ?F) Pulse: 61 (07/09/24407) Pulse Min: 58 Max: 74 Resp: 17 (07/09/24407) Resp Min: 16 Max: 18 BP: 167/61 (07/09/24 0408) BP Min: 139/56 Max: 167/61 MAP Non Invasive (Mean Arterial Pressure): 87 (07/09/24 040) MAP Non Invasive (Mean Arterial Pressure) Min: [...] (ml) -2 350 (more content not included)... [facility] 07-08-2024 Note HNO ID: [id number] Author: FELICIA LEVY MD Service: Hospital Medicine [...] of vision now s/p laser iridotomy at [facility] then trasnferred to [facility] for further management. Plan: - Ophthalmology [...] 1 Primary Service: DAE Chaudhry Staff: Felicia Levy Primary Service: Dae Chaudhry INTERVAL HISTORY: - [...] Admit LABS: CBC: Recent Labs 07/07/24 1853 12/ (more content not included)... [facility] 07-07-2024 Note HNO ID: [id number] Author: JARED GILMORE MD Service: ? Author [...] components. Jared Gilmore MD Vitreoretinal Surgery Fellow [facility] 07-07-2024 History of Present illness Narrative New [...] with Dr. Gilmore documented in this encounter [facility] 07-07-2024 Note [facility] 07-07-2024 Hospital course Narrative Discharge Summary Hospitalist Discharge Summary Mel Pop : 1940 Admit date: 07/05/2024 Discharge [...] She was able to be accepted at [facility] for retinal evaluation. Acute angle-closure glaucoma - seen by ophthalmology; multiple peripheral iridotomy; contacted Dr. Carlson and recommended evaluation by retinal specialist; contacted [facility] and placed on high priority transfer list; contacted and [facility] to see about possible transfer there as potential wait at [facility]; contacted this and accepted at [facility] and patient prefers to go there rather [...] now Question: Diet type Answer: Regular 07/05/24 1324 Activity: as tolerated Recommended Outpatient Tests: Disposition: [...] Ellipta 100-62.5-25 MCG/ACT aerosol powder Generic drug: Aloswcxxuck-Ystdjbuxw-Nukprg STOP taking these medications albuterol 108 (90 [...] solution Recommended Follow-up: Tre Lombardi MD [address] [place] [phone] Call in 2 month(s) Need follow up in December 2024 for aneurysm surveillence Complexity of Follow up: [] Moderate Complexity: follow up within 7-14 calendar days (59747) [x] Severe Complexity: follow up within 7 calendar days (02938) - after DC from [facility] Follow up [...] frame. Signed: Red Henderson DO [facility] 07/07/2024, 11:08 AM documented in this encounter [facility] 07-07-2024 Nurse Note Report called to [facility]. [facility] 07-07-2024 Nurse Note Report called to [facility]. This RN called [employer] to try and locate pts lost glasses from 07/05/2024. Glasses that match the description are in lost and found. Will attempt to see if glasses are a match. documented in this encounter [facility] 07-07-2024 Note Formatting of this n ote might be different from the original. Care Management Progress Note DC plan - Transfer to [facility]. Received message from RN who reports pt has a bed at the [facility] and dc orders to go today and is requesting transportation be set up AIDAN. Transportation set up through roundtrip via cot with [employer] for 10:30am. RN, pt and pt's dtr Fidel notified of dc plan and transportation time. No add'l needs for dc noted or identified at this time. Length of Stay (Days): 0 GMLOS: 2.3 [facility] 07-07-2024 Note Formatting of this n ote might be different from the original. Care Management Progress Note DC plan - Transfer to [facility]. Received message from RN who reports pt has a bed at the [facility] and dc orders to go today and is requesting transportation be set up AIDAN. Transportation set up through roundtrip via cot with [employer] for 10:30am. RN, pt and pt's dtr Fidel notified of dc plan and transportation time. No add'l needs for dc noted or identified at this time. Length of Stay (Days): 0 GMLOS: 2.3 [facility] 07-07-2024 Miscellaneous Notes Care Management Progress Note DC plan - Transfer to [facility]. Received message from RN who reports pt has a bed at the [facility] and dc orders to go today and is requesting transportation be set up AIDAN. Transportation set up through roundtrip via cot with [employer] for 10:30am. RN, pt and pt's dtr Fidel notified of dc plan and transportation time. No add'l needs for dc noted or identified at this time. Length of Stay (Days): 0 GMLOS: 2.3 Complicated discharge , live alone, poor vision - PT/OT now ordered- live in mobile home. Consults in progress. Need [facility] to follow - does have pcp , [...] is working on this . With staff. [facility] she is agreeable to it if goes home . [employer] Mel Pop : 1940 Primary Care Physician: Jared Evans MD The patient and/or family/surrogate voluntarily agreed to participate in ACP services. Patient s cognitive capacity: intact Code Status: [ ] [FULL CODE - Continue all advanced life support: CPR,intubation,invasive procedures] [ X ] [DNR-CCA - DO NOT do CPR, intubation] [_] [DNR-BUSINESS QUALITY ASSURANCE ANALYST - Comfort care only] [_] DNR form [was/was not] signed Summary of discussion: The patient health care POA/ surrogate is the following: Fidel STAPLETON ([facility]) I answered all the patient/family [...] with patient and/or family/surrogate. Silvio Peres MD [facility] 07/05/2024, 1:18 PM documented in this encounter [facility] 07-07-2024 History of Present illness Narrative Nutrition rescreen completed. Chart reviewed. Patient to be monitored and followed by the diet laser technician. Images from the original note were not included. PHYSICAL THERAPY [facility] Initial Evaluation Name/MRN: Mel Pop ([id number]) Evaluation Date: 07/06/2024 Date of : 1940 Admission Date: 07/05/2024 4:21 AM Age: 83 y.o. Room/Bed: W3-324/W3-324 A Discharge Recommendation: Custodial Facility Equipment Needed: (tbd) Assessment IMPRESSION: The [...] kidney disease COPD (chronic obstructive pulmonary disease) ([facility]) DVT (deep venous thrombosis) ([facility]) Essential hypertension 03/07/2020 GERD (gastroesophageal reflux disease) Hiatal hernia IBS (irritable bowel syndrome) Pure hypercholesterolemia 03/07/2020 PVD (peripheral vascular disease) ([facility]) Stroke ([facility]) Past Surgical History: Past Surgical History: Procedure [...] of deep vessels of proximal lower extremity ([facility]) 04/14/2024 Peripheral arterial disease ([facility]) 04/03/2024 Immunodeficiency due to conditions classified elsewhere ([facility]) 07/27/2023 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 ([facility]) 07/27/2023 Bilateral pneumonia 06/16/2022 COVID-19 06/16/2022 Hypothyroidism 06/16/2022 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 Cellulitis 05/18/2022 Nicotine use disorder 05/18/2022 Acute venous embolism and thrombosis of deep vessels of proximal end of right lower extremity (HCC) 04/19/2024 Atrial fibrillation, unspecified type ([facility]) 04/19/2024 Irritable bowel syndrome with diarrhea 03/07/2020 Microscopic hematuria 03/07/2020 Left retinal detachment 03/07/2020 Hyperglycemia 03/07/2020 Osteopenia of left femoral neck 03/07/2020 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 03/07/2020 Seasonal allergies 03/07/2020 Chronic renal insufficiency, stage III (moderate) ([facility]) 03/07/2020 Major depression, single episode, in complete remission ([facility]) 03/07/2020 Gastroesophageal reflux disease without esophagitis 03/07/2020 Essential hypertension 03/07/2020 Pure hypercholesterolemia 03/07/2020 Overweight 03/07/2020 Psoriasis 03/07/2020 History of cerebrovascular accident 03/07/2020 Atrial fibrillation (HCC) 03/07/2020 Chronic obstructive pulmonary disease ([facility]) 03/07/2020 Finger osteomyelitis, right ([facility]) 03/06/2020 Medical Precautions: No active isolations Proper [...] support system of friends and family 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 Goals and/or treatment plan was established in collaboration with patient/family/other representatives. Hospitalist Progress Note 07/06/2024 Subjective: Admit Date: 07/05/2024 PCP: Jared Evans MD Room#: W3-324/W3324 A BRIEF HOSPITAL COURSE: Per admitting hospitalist's [...] kidney disease COPD (chronic obstructive pulmonary disease) ([facility]) DVT (deep venous thrombosis) ([facility]) Essential hypertension 03/07/2020 GERD (gastroesophageal reflux disease) Hiatal hernia IBS (irritable bowel syndrome) Pure hypercholesterolemia 03/07/2020 PVD (peripheral vascular disease) ([facility]) Stroke ([facility]) LABS: CBC: Recent Labs 07/05/24 0435 07/06/24 [...] chloride, 50 mL/hr, Last Rate: 50 mL/hr (07/06/24 0918) Assessment Plan Acute angle-closure glaucoma - seen [...] Red Henderson DO Division of Hospitalist Medicine [facility] documented in this encounter [facility] 07-06-2024 Nurse Note This RN called [employer] Services to try and locate pts lost glasses from 07/05/2024. Glasses that match the description are in lost and found. Will attempt to see if glasses are a match. [facility] 07-06-2024 Telephone encounter Note TELEPHONE ENCOUNTER 07/06/2024 Patient with recent stroke and admitted to [facility] where she was noted to have elevated IOP with retinal detachment of the right eye by consult gusset folder. She has a history of RD in [...] optos [facility] Ryan Elizondo MD Ophthalmology Resident [facility] Work Phone: 07-06-2024 Miscellaneous Notes TELEPHONE ENCOUNTER 07/06/2024 Patient with recent stroke and admitted to [facility] where she was noted to have elevated IOP with retinal detachment of the right eye by consult gusset folder. She has a history of RD in [...] MD Ophthalmology Resident documented in this encounter [facility] 07-06-2024 Note Formatting of this n ote [...] is working on this . With staff. [facility] she is agreeable to it if goes home . [facility] 07-06-2024 Note Formatting of this n ote [...] is working on this . With staff. [facility] she is agreeable to it if goes home . [facility] 07-06-2024 Consult note Formatting of th is [...] referral to a retinal subspecialist at either [facility] or [facility] for repair of retinal detachment right eye (OD). Continue ophthalmic pressure lowering ophthalmic meds right eye (OD) until seen by retinal subspecialist. [place] Phone: 07-06-2024 Consult note Formatting of th [...] referral to a retinal subspecialist at either [facility] or [facility] for repair of retinal detachment right eye [...] days. Associated Order(s): Inpatient consult to Endovascular Neurology--[facility] ENDOVASCULAR [facility]UROLOGY Inpatient consult to Endovascular Neurology--[facility] ENDOVASCULAR NEUROLOGY Consult performed by: Helga Naik APRN - [facility] Consult ordered by: Wm Nunes DO [...] kidney disease, COPD (chronic obstructive pulmonary disease) ([facility]), DVT (deep venous thrombosis) ([facility]), Essential hypertension (03/07/2020), GERD (gastroesophageal reflux disease), Hiatal hernia, IBS (irritable bowel syndrome), Pure hypercholesterolemia (03/07/2020), PVD (peripheral vascular disease) ([facility]), and Stroke ([facility]). She has no past medical history of Cancer ([facility]) ([facility]), Cerebral artery occlusion with cerebral infarction ([facility]), CHF (congestive heart failure) ([facility]), Diabetes mellitus ([facility]), Hemodialysis patient ([facility]) ([facility]), blood clots, or MDRO (multiple drug resistant [...] Name: Mel Pop Patient : 1940 Acct: [id number] Date of Admission: 07/05/2024 Room/Bed: 60/60 PCP: [...] kidney disease COPD (chronic obstructive pulmonary disease) ([facility]) DVT (deep venous thrombosis) ([facility]) Essential hypertension 03/07/2020 GERD (gastroesophageal reflux disease) Hiatal hernia IBS (irritable bowel syndrome) Pure hypercholesterolemia 03/07/2020 PVD (peripheral vascular disease) ([facility]) Stroke ([facility]) Past Surgical History: Past Surgical History: Procedure [...] Historical Provider, ergocalciferol (Vitamin D2) 1.25 MG (17577 UT) capsule Take 1.25 mg by mouth [...] 5 MG tablet Take as directed by [facility] Anticoagulation Clinic (90 tablets = 90 [...] 5-40 mL, 5-40 mL, IntraVENous, PRN, Wm Aracelirarayla, DO Current Outpatient Medications: albuterol 108 (90 [...] , Rfl: ergocalciferol (Vitamin D2) 1.25 MG (18933 UT) capsule, Take 1.25 mg by mouth [...] 5 MG tablet, Take as directed by [facility] Anticoagulation Clinic (90 tablets = 90 [...] motor function: 0=Normal Total: 2 Pre-admission Modified Roseau Score: 1 __ 0 No symptoms at [...] 4:46 AM EST. Report Dictated on Workstation: RealD Electronically Signed By: Cirilo Ray DR Electronically [...] this patient's care. documented in this encounter [facility] 07-05-2024 Consult note Formatting of th is [...] drops are started. Will continue to follow. [facility] 07-05-[address] Carlson at bedside. [facility] 07-05-[address] Carlson at bedside. Provider notified of patient request for pain meds. Dr. Carlson at bedside Patient is returning back to room 32 at this time with Jose Medic. Pt currently at eye clinic with RADHA Hinkle for emergent eye laser procedure. Pt emergently going to eye clinic. Pt being transported in wheelchair with trauma float RADHA Hinkle and Maritza FRAGA Pt being transported on zoll monitor and acls kit. Ophthalmology at bedside Report to Maritza RN Emergency Department Encounter Location: [facility] EMERGENCY DEPT Patient: Mel Pop : 1940 [...] 423 ms QTC Interval 418 ms P [place] 0 degrees QRS [place] 37 degrees T Wave [place] 29 degrees MD Interval 0 ms Troponin, High Sensitivity, Serial, [...] IV. I discussed with Dr. Peres from [facility] hospitalist service who accepted the admit. Medications [...] Given 07/05/24 0517) I am not the girls swimming coach of record. Dr. Nunes is the girls swimming coach of record. Final Impression 1. Vision loss [...] MD 07/05/24 1322 documented in this encounter [facility] 07-05-2024 Note Formatting of this n ote [...] - DO NOT do CPR, intubation] [_] [DNR-BUSINESS QUALITY ASSURANCE ANALYST - Comfort care only] [_] DNR form [was/was not] signed Summary of discussion: The patient health care POA/ surrogate is the following: Fidel STAPLETON ([place]) I answered all the patient/family questions that [...] with patient and/or family/surrogate. Silvio Peres MD [facility] 07/05/2024, 1:18 PM [facility] 07-05-2024 Note Formatting of this n ote [...] - DO NOT do CPR, intubation] [_] [DNR-BUSINESS QUALITY ASSURANCE ANALYST - Comfort care only] [_] DNR form [...] with patient and/or family/surrogate. 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 History Obtained From: patient and patient's kqcldzul-lw-kxn HISTORY OF PRESENT ILLNESS: Mel is a [...] pulmonary disease) (HCC) DVT (deep venous thrombosis) ([facility]) Essential hypertension 03/07/2020 GERD (gastroesophageal reflux disease) Hiatal hernia IBS (irritable bowel syndrome) Pure hypercholesterolemia 03/07/2020 PVD (peripheral vascular disease) ([facility]) Stroke ([facility]) Past Surgical History: Past Surgical History: Procedure [...] Resource Strain: Low Risk (06/20/2024) Received from [facility] Medical Overall Financial Resource Strain (CARDIA) Difficulty of Paying Living Expenses: Not very hard Food Insecurity: No Food Insecurity (06/20/2024) Received from [facility] Medical Hunger Vital Sign Worried About Running Out of Food in the Last Year: Never true Ran Out of Food in the Last Year: Never true Transportation Needs: No Transportation Needs (07/02/2024) Received from [facility] Transportation Source Has lack of transportation kept you from medical appointments or from getting medications?: No Has lack of transportation kept you from meetings, work, or from getting things needed for daily living?: No Physical Activity: Inactive (04/04/2024) Exercise Vital Sign Days of Exercise per Week: 0 days Minutes of Exercise per Session: 0 min Stress: No Stress Concern Present (06/19/2024) Received from [facility] [place] of Occupational Health - Occupational Stress Questionnaire Feeling of Stress : Not at all Social Connections: Moderately Isolated (06/20/2024) Received from [facility] Social Connection and Isolation Panel [NHANES] Frequency of Communication with Friends and Family: More than three times a week Frequency of Social Gatherings with Friends and Family: Once a week Attends Islam Services: More than 4 times per year Active Member of Clubs or Organizations: No Attends Club or Organization Meetings: Never Marital Status: Intimate Partner Violence: Not At Risk (06/19/2024) Received from [facility] Domestic Abuse Assessment Do you feel safe in your relationships at home?: Yes Physical Abuse: Denies [facility] Domestic Abuse - Type of Abuse: Not on file [facility] Domestic Abuse - Time Frame: Not on file [facility] Domestic Abuse - Signs and Symptoms: Not on file Verbal Abuse: Denies [facility] Domestic Abuse - Reported To: Not on file Housing Stability: Low Risk (06/20/2024) Received from [facility] Housing Stability Vital Sign Unable to [...] the evening. ergocalciferol (Vitamin D2) 1.25 MG (50299 UT) capsule Take 1.25 mg by mouth [...] 5 MG tablet Take as directed by [facility] Anticoagulation Clinic (90 tablets = 90 [...] 07/05/2024 [facility] 1940 [id number] Exam Date/Time: 07/05/2024 11:45 Procedure: MR BRAIN [...] 07/05/2024 [facility] 1940 [id number] Exam Date/Time: 07/05/2024 04:36 Procedure: CT HEAD [...] 07/05/2024 Patient Name: MEL POP : 1940 [facility]#: [id number] Exam Date/Time: 07/05/2024 04:36 Procedure: CT HEAD [...] 07/05/2024 Patient Name: MEL POP : 1940 [facility]#: [id number] Exam Date/Time: 07/05/2024 04:36 Procedure: CT PERFUSION [...] glucose meter Result Date: 07/05/2024 Performed by: [employer] [facility], [address] [place] [address] CLIA ID: [id number] Assessment / Plan Discussed management with the [...] Extended Emergency Contact Information Primary Emergency Contact: VasughassanDamaris Mobile Relation: Friend Secondary Emergency Contact: José Miguel Castillo/ Fidel Mobile Relation: Child Silvio Peres MD Division of Hospitalist Medicine Acute care [facility] Dictated using Dropbox Version 2.4 Proof read however unrecognized voice recognition errors may have occurred [employer] Work Phone: 07-05-2024 Note [facility] 07-05-2024 History and physical note Attending History and Physical Admit Date: 07/05/2024 PCP: Jared Evans MD CHIEF COMPLAINT: Loss of vision right eye, headache/eye pain, nausea, eye swelling Reason for Admission: 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 History Obtained From: patient and patient's [id number] HISTORY OF PRESENT ILLNESS: Mel is a [...] Resource Strain: Low Risk (06/20/2024) Received from [facility] Overall Financial Resource Strain (CARDIA) Difficulty of Paying Living Expenses: Not very hard Food Insecurity: No Food Insecurity (06/20/2024) Received from [facility] Hunger Vital Sign Worried About Running Out of Food in the Last Year: Never true Ran Out of Food in the Last Year: Never true Transportation Needs: No Transportation Needs (07/02/2024) Received from [facility] Transportation Source Has lack of transportation kept you from medical appointments or from getting medications?: No Has lack of transportation kept you from meetings, work, or from getting things needed for daily living?: No Physical Activity: Inactive (04/04/2024) Exercise Vital Sign Days of Exercise per Week: 0 days Minutes of Exercise per Session: 0 min Stress: No Stress Concern Present (06/19/2024) Received from [facility] of Occupational Health - Occupational Stress Questionnaire Feeling of Stress : Not at all Social Connections: Moderately Isolated (06/20/2024) Received from [facility] Medical Social Connection and Isolation Panel [NHANES] Frequency of Communication with Friends and Family: More than three times a week Frequency of Social Gatherings with Friends and Family: Once a week Attends Islam Services: More than 4 times per year Active Member of Clubs or Organizations: No Attends Club or Organization Meetings: Never Marital Status: Intimate Partner Violence: Not At Risk (06/19/2024) Received from [facility] Medical Domestic Abuse Assessment Do you feel safe in your relationships at home?: Yes Physical Abuse: Denies [facility] Domestic Abuse - Type of Abuse: Not on file [facility] Domestic Abuse - Time Frame: Not on file [facility] Domestic Abuse - Signs and Symptoms: Not on file Verbal Abuse: Denies [facility] Domestic Abuse - Reported To: Not on file Housing Stability: Low Risk (06/20/2024) Received from [facility] Medical Housing Stability Vital Sign Unable to Pay [...] the evening. ergocalciferol (Vitamin D2) 1.25 MG (81966 UT) capsule Take 1.25 mg by mouth [...] 5 MG tablet Take as directed by [facility] Anticoagulation Clinic (90 tablets = 90 [...] RESULT COMMUNICATION: Critical findings discussed with Dr. hSabazz at 07/05/2024 4:46 AM EST. Report Dictated on Electronically Signed By: Cirilo Ray DR Electronically Signed Date/Time: 07/05/2024 5:03 AM EST CTA head neck angio w and wo IV contrast Result Date: 07/05/2024 Patient Name: MEL POP : 1940 [facility]#: [id number] Exam Date/Time: 07/05/2024 04:36 Procedure: CT HEAD [...] 07/05/2024 Patient Name: MEL POP : 1940 [facility]#: [id number] Exam Date/Time: 07/05/2024 04:36 Procedure: CT PERFUSION [...] glucose meter Result Date: 07/05/2024 Performed by: [facility], [address] [place] [address] CLIA ID: [id number] Assessment / Plan Discussed management with the [...] José Miguel Castillo/ Fidel Mobile Relation: Child Silvio Peres MD Division of Hospitalist Medicine [employer] [facility] [employer] Dictated using imageloop Speaking Medical Version 2.4 Proof read however unrecognized voice recognition errors may have occurred documented in this encounter [facility] 07-05-2024 Emergency department Note Provider notified of patient request for pain meds. [facility] 07-05-2024 Consult note Associated Order (s): IP [...] drops to be discontinued after 4 days. [facility] 07-05-2024 Consult note Associated Order (s): Inpatient consult to Endovascular Neurology--[facility] ENDOVASCULAR NEUROLOGY Inpatient consult to Endovascular Neurology--[facility] ENDOVASCULAR NEUROLOGY Consult performed by: Helga Naik APRN - [facility] Consult ordered by: Wm Nunes DO [...] kidney disease, COPD (chronic obstructive pulmonary disease) ([facility]), DVT (deep venous thrombosis) ([facility]), Essential hypertension (03/07/2020), GERD (gastroesophageal reflux disease), Hiatal hernia, IBS (irritable bowel syndrome), Pure hypercholesterolemia (03/07/2020), PVD (peripheral vascular disease) ([facility]), and Stroke ([facility]). She has no past medical history of Cancer ([facility]/HCC) ([facility]), Cerebral artery occlusion with cerebral infarction ([facility]), CHF (congestive heart failure) ([facility]), Diabetes mellitus ([facility]), Hemodialysis patient ([facility]) ([facility]), blood clots, or MDRO (multiple drug resistant [...] ., . Personal review of: Imaging,Labs,Old Records},.},. Electronically signed by Helga Naik, VOCATIONAL EDUCATION PROFESSIONAL - CLOTH TRIMMER HAND at 07/05/2024 11:21 AM EST [facility] Work Phone: 07-05-[address] Carlson at bedside [facility] 07-05-2024 Emergency department Note Patient is returning back to room 32 at this time with Jose, Medic. [facility] 07-05-2024 Emergency department Note Pt currently at eye clinic with RADHA Hinkle for emergent eye laser procedure. [facility] 07-05-2024 Note Pt currently at eye clinic with RADHA Hinkle for emergent eye laser procedure. [facility] 07-05-2024 Emergency department Note Pt emergently going to eye clinic. Pt being transported in wheelchair with trauma float RADHA Hinkle and Maritza FRAGA Pt being transported on zoll monitor and acls kit. [facility] 07-05-2024 Emergency department Note Ophthalmology at bedside [facility] 07-05-2024 Emergency department Note Report to Maritza FRAGA [facility] 07-05-2024 Consult note Associated Order (s): IP CONSULT TO STROKE TEAM STROKE TEAM NOTE Patient Name: Mel Pop Patient : 1940 Acct: [id number] Date of Admission: 07/05/2024 Room/Bed: 60/60 PCP: [...] Pure hypercholesterolemia 03/07/2020 PVD (peripheral vascular disease) ([facility]) Stroke (HCC) Past Surgical History: Past Surgical [...] Historical Provider, ergocalciferol (Vitamin D2) 1.25 MG (64910 UT) capsule Take 1.25 mg by mouth [...] 5 MG tablet Take as directed by [facility] Anticoagulation Clinic (90 tablets = 90 day supply). Current dose: 5 mg daily. 06/01/24 Ryan Valdez MD Current Hospital Medications: Current Facility-Administered Medications: fentaNYL (Sublimaze) injection 25 mcg, 25 mcg, IntraVENous, Once, Wm Nunes DO labetalol (Normodyne,Trandate) injection 10 mg, 10 [...] , Rfl: ergocalciferol (Vitamin D2) 1.25 MG (81723 UT) capsule, Take 1.25 mg by mouth [...] 5 MG tablet, Take as directed by [facility] Anticoagulation Clinic (90 tablets = 90 [...] motor function: 0=Normal Total: 2 Pre-admission Modified Mesha Score: 1 __ 0 No symptoms at [...] to be involved in this patient's care. [place] Phone: 07-05-2024 Physician Emergency department Note Emergency Department Encounter Location: [facility] EM[facility] Patient: Mel Pop : 1940 [...] 423 ms QTC Interval 418 ms P [place] 0 degrees QRS [place] 37 degrees T Wave [place] 29 degrees MD Interval 0 ms Troponin, High Sensitivity, Serial, [...] IV. I discussed with Dr. Peres from [facility] hospitalist service who accepted the admit. Medications [...] Given 07/05/24 0517) I am not the girls swimming coach of record. Dr. Nunes is the girls swimming coach of record. Final Impression 1. Vision loss of right eye 2. Acute intractable headache, unspecified headache type DISPOSITION Observation 07/05/2024 01:21:52 PM (Please note that portions of this note may have been completed with a voice recognition program. Efforts were made to edit the dictations but occasionally words are mis-transcribed.) Jhonatan Hernandez MD [employer] [facility] [employer] Jhonatan Hernandez MD 07/05/24 1322 [facility] 06-19-2024 Note HNO ID: [id number] Author: JOSE GONZALEZ [facility] Service: Pharmacy Author Type: Pharmacist Type: Plan [...] with neuroendovascular for ICA aneurysm Jose Gonzalez [facility] Pager: Nora/Hailey cervantes 06/19/2024 1:31 PM Medication List START taking [...] ELLIPTA 100-62.5-25 mcg inhalation powder Generic drug: xqulcywcnhs-vgokibxcd-afnwjbpl VITAMIN C 500 mg tablet Generic drug: ascorbic acid (vitamin C) Take 1 tablet by mouth three times daily. STOP taking these medications ELIQUIS DVT-PE TREAT 30D START 5 mg (74 tabs) Generic drug: apixaban lactobacillus rhamnosus 10 billion cell capsule Commonly known as: CULTURELLE LASIX 40 mg tablet Generic drug: furosemide warfarin 5 mg tablet Commonly known as: COUMADIN zinc oxide 20 % ointment [facility] 06-19-2024 Note HNO ID: [id number] Author: ROSLYN ROSE RN Service: Care Management Author Type: Registered Nurse Type: Care Mgt Progress Note Filed: 06/19/2024 13:11 Note Text: CARE MANAGEMENT DISCHARGE NOTE SERVICE DATE: June 19, 2024 SERVICE TIME: 1:10 PM Admission Date: 06/10/2024 LOS: 8 days Discharge Arrangement Discharge Arrangement: Acute Rehabilitation Facility Services Arranged [facility] Assessment Caregiver is ready, willing and able to meet the patient's needs as recommended by the inter-professional team: Yes Name of Caregiver: Taylor Muir Transportation Arrangements Transportation Arrangements: Ambulance Transportation Agency and Phone #:: [facility] ( [facility] ) [phone] / [phone] Date of Trip: 06/19/24 Time of Trip: 1800 Type of Service: BLS Non-emergency Vision Specialist Location: [facility] Destination: [facility] Financial Care Management Responsibility: None Handoff Communication: Handoff to: Specialty 3Rd Pressman Specialty 3Rd Pressman Name/Phone: Taylor Muir Additional Information: Patient has insurance precert and is discharging to [facility] today via [facility] at 6:00 PM. Spoke with patient at bedside and son José Miguel via phone who are aware and agreeable. Transfer envelope with chart. Care team aware via Epic chat. Discharge Information Row Name ED to Hosp-Admission (Current) from 06/10/2024 in [place] 8100 NEURO/CARD Rehab Facility Agency [facility] SIGNATURE: oRslyn Rose RN PATIENT NAME: Mel Castillo DATE: June 19, 2024 TIME: 1:10 PM CONTACT #: [phone] [facility] 06-19-2024 Note HNO ID: [id number] Author: DON EDWARDS DO Service: Hospital Medicine Author Type: Physician Type: Progress Notes Filed: 06/19/2024 12:53 Note Text: DEPARTMENT OF HOSPITAL MEDICINE PROGRESS NOTE SERVICE DATE: 06/19/2024 SERVICE TIME: 10:10 AM Hospital Medicine/Primary Attending: Don Edwards DO NIGHT AND WEEKEND COVERAGE: POWER COVERAGE: From 7am - 7pm, please call [phone] After 7pm, please call cross cover pager #[phone] Subjective INTERVAL HPI: Pt seen and examined. [...] Right Forearm 22 Gauge -- days Peripheral 06/12/24426 [facility] Short Right Forearm 20 Gauge 7 [...] now event with subtherapeutic coumadin. Rehab at [facility]. Will need to follow up with neurology [...] -- 06/11/24 0730 vte current anticoag therapy ([place]) 06/11/24 0730 activity - mobilize patient ([place]) VTE Prophylaxis: VTE prophylaxis appropriate Disposition: Acute Rehab Plan of care discussed with: Provider, RN, Patient SIGNATURE: Don Edwards DO PATIENT NAME: Mel Castillo DATE: June 19, 2024 TIME: 10:10 AM etx [phone] [facility] 06-18-2024 Note HNO ID: [id number] Author: ANABEL VEGA, ? Service: Care Management Author Type: ? Type: Care Mgt Progress Note Filed: 06/18/2024 17:18 Note Text: [facility] PRECERT NOTE [employer] MEDICARE PPO approved Inpatient Rehab Facility for [facility]. Precert approved for dates: - 06/26/2024. For any additional questions regarding approvals, transport or care management needs, please contact the CM assigned to this patient in the Treatment Team. SIGNATURE: Anabel Khalil Page DATE: June 18, 2024 TIME: 5:17 PM [facility] 06-18-2024 Note HNO ID: [id number] Author: MARK MINOR DO Service: Hospital Medicine Author Type: Physician Type: Progress Notes Filed: 06/18/2024 16:17 Note Text: DEPARTMENT OF HOSPITAL MEDICINE PROGRESS NOTE SERVICE DATE: 06/18/2024 SERVICE TIME: 4:06 PM Hospital Medicine/Primary Attending: Mark Minor DO NIGHT AND WEEKEND COVERAGE: After 7pm please page [phone] SUBJECTIVE: Patient seen examined at bedside. No [...] now event with subtherapeutic coumadin. Rehab at [facility]. Will need to follow up with neurology [...] atrial (more content not included)... [facility] 06-18-2024 Note HNO ID: [id number] Author: ROSLYN ROSE RN Service: Care Management Author Type: Registered Nurse Type: Care Mgt Progress Note Filed: 06/18/2024 12:32 Note Text: CARE MANAGEMENT PROGRESS NOTE SERVICE DATE: 06/18/2024 SERVICE TIME: 9:01 AM LOS: 7 days Chart reviewed. Insurance precert is pending for [facility]. Will need precert and cot transport. CM to follow for transitional care planning. ADDENDUM at 10:20 AM- Spoke with patient at bedside and provided update on pending precert. Received message from [facility] that insurance is requesting updated PT/OT evals and notified therapy. SIGNATURE: Roslyn Rose RN PATIENT NAME: Mel Castillo DATE: June 18, 2024 TIME: 9:01 AM PAGER/CONTACT #: [phone] [facility] 06-17-2024 Note HNO ID: [id number] Author: DON EDWARDS DO Service: Hospital Medicine Author Type: Physician Type: Progress Notes Filed: 06/17/2024 13:52 Note Text: DEPARTMENT OF HOSPITAL MEDICINE PROGRESS NOTE SERVICE DATE: 06/17/2024 SERVICE TIME: 11:15 AM Hospital Medicine/Primary Attending: Don Edwards DO NIGHT AND WEEKEND COVERAGE: POWER COVERAGE: From 7am - 7pm, please call [phone] After 7pm, please call cross cover pager #[phone] Subjective INTERVAL HPI: Pt seen and examined. [...] Forearm 22 Gauge -- days Peripheral 06/12/24 042 [facility] Short Right Forearm 20 Gauge 5 [...] eliquis. She was seen by therapy and longterm facility was recommended. 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 Rehab at [facility]. Will need to follow up with neurology [...] HOURS Given, 06/17 0515 06/13/24 1331 -- 06/11/24 0730 vte current anticoag therapy ([place]) 06/11/24 0730 activity - mobilize patient ([place]) VTE Prophylaxis: VTE prophylaxis appropriate Disposition: Acute Rehab Plan of care discussed with: Provider, RN, Patient SIGNATURE: Don Edwards DO PATIENT NAME: Mel Castillo DATE: June 17, 2024 TIME: 11:15 AM etx [phone] [facility] 06-16-2024 Note HNO ID: [id number] Author: DON EDWARDS DO Service: Hospital Medicine Author Type: Physician Type: Progress Notes Filed: 06/16/2024 13:06 Note Text: DEPARTMENT OF HOSPITAL MEDICINE PROGRESS NOTE SERVICE DATE: 06/16/2024 SERVICE TIME: 11:00 AM Hospital Medicine/Primary Attending: Don Edwards DO NIGHT AND WEEKEND COVERAGE: POWER COVERAGE: From 7am - 7pm, please call [phone] After 7pm, please call cross cover pager #[phone] Subjective INTERVAL HPI: Pt seen and examined. [...] 22 Gauge -- days Peripheral 06/12/24 0427 [facility] Short Right Forearm 20 Gauge 4 days Drain Duration Indwelling Urinary Catheter 06/11/24 1535 [facility] Ceballos 16 Fr 4 days Reviewed lines and needs to be continued: REASONS: Difficulty in obtaining/maintaining access DATA: Diagnostic tests reviewed for today's visit: Most recent labs and imaging results. 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 Rehab at [facility]. Will need to follow up with neurology [...] -- 06/11/24 0730 vte [place] 06/11/24 0730 activity - [place]ize [place] VTE Prophylaxis: VTE prophylaxis appropriate Disposition: Acute Rehab Plan of care discussed with: Provider, RN, Patient SIGNATURE: Don Edwards DO PATIENT NAME: Mel Castillo DATE: June 16, 2024 TIME: 11:00 AM etx [id number] [facility] 06-15-2024 Note HNO ID: [id number] Author: ERA TELLES MD Service: Hospital Medicine [...] on oxygen Plan for acute rehab at [facility] able to accept. Await precert Plan of care discussed with: Provider, RN, Patient. SIGNATURE: Era Telles MD PATIENT NAME: Mel Castillo DATE: June 15, 2024 TIME: 2:40 PM PAGER: [facility] 06-15-2024 Note HNO ID: [id number] Author: ISHANOctober,.CLOTH TRIMMER HAND Service: Urology Author Type: Nurse Practitioner Type: Plan of Care Filed: 06/15/2024 12:16 Note Text: Urology Plan of Care Note RN reached out asking about a void trial today. Notes pt has bloody urine. Pt seen at bedside. Pt eating lunch. Vanessa urine in tubing at this time. Will place PRN irrigation orders if urine is bloody again. Page urology resident brickmason if urine is grade 4 or higher. [...] on the unit. October06/15/2024 12:11 PM Page brickmason resident with questions [facility] 06-15-2024 Note HNO ID: [id number] Author: ROSLYN ROSE RN Service: Care Management Author Type: Registered Nurse Type: Care Mgt Progress Note Filed: 06/15/2024 09:38 Note Text: CARE MANAGEMENT PROGRESS NOTE SERVICE DATE: 06/15/2024 SERVICE TIME: 9:36 AM LOS: 4 days Chart reviewed. Insurance precert is [facility]. Will need precert and cot transport. Will place transfer envelope with chart that has signed portable DNR form attached. CM to follow for transitional care planning. SIGNATURE: Roslyn Rose RN PATIENT NAME: Mel Castillo DATE: June 15, 2024 TIME: 9:36 AM PAGER/CONTACT #: [phone] [facility] 06-14-2024 Note HNO ID: [id number] Author: JENNIFER FERNANDEZ RN Service: Nursing Author Type: Registered Nurse Type: Nursing Progress Note Filed: 06/14/2024 17:35 Note Text: 1610: paged urology for voiding trial awaiting response [facility] 06-14-2024 Note HNO ID: [id number] Author: ERA TELLES MD Service: Hospital Medicine [...] on oxygen Plan for acute rehab at [facility] able to accept. Await precert Plan of care discussed with: Provider, RN, Patient. SIGNATURE: Era Telles MD PATIENT NAME: Mel Castillo DATE: June 14, 2024 TIME: 2:47 PM PAGER: [facility] 06-13-2024 Note HNO ID: [id number] Author: EDIE CASTAÑEDA MD Service: Hospital Medicine Author Type: Physician Type: Progress Notes Filed: 06/13/2024 14:18 Note Text: DEPARTMENT OF HOSPITAL MEDICINE Hospital Medicine/Primary Attending: Edie Castañeda MD NIGHT AND WEEKEND COVERAGE: After 7pm please page [phone] MEDICATIONS: Current Facility-Administered Medications Medication Dose Route [...] 0.2 COAG: Recent Labs 06/13/24 0825 06/13/24 01306/12/24 1903 06/12/24 1156 06/12/24 0450 06/12/24 03506/11/24 20206/11/24 1353 06/10/24 233 APTT 51.3* 89.0* 56.1* 79.0* 123.9* 117.3* 28.2 28.9 -- INR -- -- -- -- -- -- -- 1.2 1.3 BMP: Recent Labs 06/13/2413606/12/2435006/10/242329 GLUC 95 109* 157* NA 136 137 136 K 3.8 4.0 4.3 CHLOR 101 101 101 CO2 24 23 23 ANION 11 13 12 BUN 16 [...] interatrial septum. [facility] Cardiology saw patient in hospital, recommended Lovenox at discharge for lifelong. 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 Continue heparin drip. Will transition to therapeutic lovenox tonight (discussed patel and affordability with patient, lin (more content not included)... [facility] 06-13-2024 Note HNO ID: [id number] Author: CARLYLE GUZMÁN, RN Service: Care Management [...] 13, 2024 TIME: 12:54 PM PAGER/CONTACT #: [phone] [facility] 06-12-2024 Note HNO ID: [id number] Author: SHARONA MCDERMOTT MD Service: Hospital Medicine Author Type: Physician Type: Progress Notes Filed: 06/12/2024 17:08 Note Text: DEPARTMENT OF HOSPITAL MEDICINE Hospital Medicine/Primary Attending: Sharona Mcdermott MD NIGHT AND WEEKEND COVERAGE: After 7pm please page [phone] Saw patient at bedside with friend visiting. [...] Recent Labs 06/12/24 1156 06/12/24 0450 06/12/24 03506/11/24202106/11/24 1353 06/10/24 233 APTT 79.0* 123.9* 117.3* 28.2 28.9 -- INR -- -- -- -- 1.2 1.3 BMP: Recent Labs 06/12/24 0351 06/10/24 2330 GLUC 109* 157* NA 137 136 K 4.0 4.3 CHLOR 101 101 CO2 23 23 ANION 13 12 BUN 12 14 CREAT 1.02* 0.87 CHEM: Recent Labs 06/12/24 03506/10/24 233 ALB 3.6* 4.2 TPROT 6.4 7.1 CA [...] interatrial septum. [facility]. Cardiology saw patient in hospital, recommended [...] Not (more content not included)... [facility] 06-12-2024 Note HNO ID: [id number] Author: DEBORAH PEACE RN Service: Care Management Author Type: Registered Nurse Type: Care Mgt Progress Note Filed: 06/12/2024 16:10 Note Text: CARE MANAGEMENT PROGRESS NOTE SERVICE DATE: 06/12/2024 SERVICE TIME: 4:09 PM LOS: 1 day [place] [facility] [place] Given: Yes Level of Care Discussed: Inpatient Rehab Facility Financial Disclosure Provided: Yes Provider List: Rehab Facility Provider list within the patient's requested geographic area shared with the patient/family: Yes within: 15 miles of zip code: [address] Quality and resource use metrics shared with the patient that are relevant to the patient's goals of care and treatment preferences:: Yes Spoke with pt about pt/ot recs for acute rehab, pt agreeable to list , [facility] foc but pt would like to discuss acute rehab with her ; referral sent to [facility] SIGNATURE: Deborah Peace RN PATIENT NAME: Mel Castillo DATE: June 12, 2024 TIME: 4:09 PM PAGER/CONTACT #: [phone] [facility] 06-12-2024 Note HNO ID: [id number] Author: ANDREEA KING LSW Service: Care Management Author Type: Windows Support Engineer Type: Care Mgt Progress Note Filed: 06/12/2024 [...] 12, 2024 TIME: 3:20 PM PAGER/CONTACT #: [phone] [facility] 06-11-2024 Note HNO ID: [id number] Author: CARLYLE GUZMÁN RN Service: Care Management [...] Home Advance Directives Current Advance Directive: None Fact Checker Attempted to Assist with AD Completion: Yes [...] General wellness, Be able to go home [place] Explained: [place] Given: No Reason Not Given: [...] family who said 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 +PCP, +DME, +RX coverage, family to provide DC transportation. Will to continue to follow for transitional care planning. SIGNATURE: Carlyle Guzmán RN PATIENT NAME: Mel Castillo DATE: June 11, 2024 TIME: 3:41 PM CONTACT #: [phone] [facility] 06-11-2024 Note Spoke with Melany Evans's office and she stated that patient is scheduled in their office tomorrow, 06/12 for INR check. I faxed her out last progress note. I will inactivate patient from our service. [facility] 05-21-2024 History of Present illness Narrative INR reported on by Christin with [facility]. Christin can be reached at [phone] with questions. Images from the original note were not included. [facility] Anticoagulation Management Service ([facility]) Anticoagulation Clinic [address], [address], [place] [address] Megan MEHTA Mel (1940) had INR completed by homecare, [...] Time spent 10 Minutes Faye Castillo with Karuna PharmD, BCACP, CACP documented in this encounter [facility] 05-09-2024 History of Present illness Narrative Graciela from [facility] called in results. Images from the original note were not included. [facility] Anticoagulation Management Service ([facility]) Anticoagulation Clinic [address] [place] [address], [address] [place] [id number] Subjective HPI Mel (1940) had INR completed [...] Time spent 10 Minutes JOSE ANGEL Perez, NidiaD, BCPS documented in this encounter [facility] 05-01-2024 History of Present illness Narrative Tia- [facility]- [phone] Images from the original note were not included. [facility] Anticoagulation Management Service ([facility]) Anticoagulation Clinic [address], [place] [address] Megan Choi (1940) had INR completed by [...] 5 mg daily Next INR Check: 05/08/2024 [facility] Patient educated on the following: dietary/lifestyle considerations and Vitamin K content and consistency Patient care coordination completed: N/A Patient given verbal instructions. Patient expressed understanding utilizing the teach back method. Time spent 10 Minutes Won Tipton RN staffed with Nidia TolbertD, BCACP, CACP documented in this encounter [facility] 04-27-2024 Telephone encounter Note Pt requested refill on warfarin 5mg. Sent to [facility]. Receipt confirmed by pharmacy. [facility] 04-27-2024 Miscellaneous Notes Pt requested refill on warfarin 5mg. Sent to [facility]. Receipt confirmed by pharmacy. documented in this encounter [facility] 04-25-2024 History of Present illness Narrative Vascular [...] any significant pain. She is following with [facility] clinic for Warfarin, switched from Eliquis. [...] tablet (5mg) on 04/15 Follow up with [facility] pharmacy for further dosing 04/13/24 Jordin [...] min Stress: No Stress Concern Present (04/04/2024) [employer] - Occupational Stress Questionnaire Feeling of Stress : Not at all Social Connections: Moderately Isolated (04/04/2024) Social Connection and Isolation Panel [NHANES] Frequency of Communication with Friends and Family: More than three times a week Frequency of Social Gatherings with Friends and Family: More than three times a week Attends Islam Services: 1 to 4 times per year [...] - Primary PAD (peripheral artery disease) (HCC) Plan: S/p right venous thrombectomy -Recovering well -Recommend continuing warfarin per [facility] clinic -Continue to elevate as needed. [...] (around 07/26/2024). . documented in this encounter [facility] 04-19-2024 History of Present illness Narrative Graciela with [facility] reports INR on vm Graciela can be reached at [phone] with any questions. Images from the original note were not included. [facility] Anticoagulation Management Service ([facility]) Anticoagulation Clinic [address], [address], [place] [address] Subjective TYSON Mel (1940) had INR completed by homecare, [...] Perez, PharmD, BCPS documented in this encounter [facility] 04-14-2024 History of Present illness Narrative Placed new order for POCT INR, [facility] had not received. documented in this encounter [facility] 04-14-2024 Miscellaneous Notes Addended by: PATTY DUGGAN on: 04/16/2024 07:01 AM Modules accepted: Orders Addended by: HARMONY GREY on: 04/16/2024 08:41 AM Modules accepted: Orders documented in this encounter [facility] 04-14-2024 Note Addended by: PATTY DUGGAN on: 04/16/2024 07:01 AM Modules accepted: Orders [facility] 04-14-2024 Note Addended by: HARMONY GREY on: 04/16/2024 08:41 AM Modules accepted: Orders [facility] 04-14-2024 Note Addended by: PATTY DUGGAN on: 04/16/2024 07:01 AM Modules accepted: Orders [facility] 04-14-2024 Note Addended by: HARMONY GREY on: 04/16/2024 08:41 AM Modules accepted: Orders [facility] 04-14-2024 Note Addended by: PATTY DUGGAN on: 04/16/2024 07:01 AM Modules accepted: Orders [facility] 04-14-2024 Note Addended by: HARMONY GREY on: 04/16/2024 08:41 AM Modules accepted: Orders [facility] 04-13-2024 Nurse Note AVS explained. Discharged patient on stable condition. [facility] 04-13-2024 Nurse Note AVS explained. Discharged patient on stable condition. Instructed patient on warfarin dosing, she will take 7.5mg tomorrow, and 5mg Tuesday, and then we will check INR with home care on Tuesday as instructed. NO changes to heparin infusion at this time. documented in this encounter [facility] 04-13-2024 Nurse Note Instructed patient on warfarin dosing, she will take 7.5mg tomorrow, and 5mg Tuesday, and then we will check INR with home care on Tuesday as instructed. [facility] 04-13-2024 Note Formatting of this n ote might be different from the original. Phone conversation with the patient at their request from the [facility] regarding her established home care. Patient was wondering what services were being provided and what expectations to have for HHC. I explained her current ordered services and she stated she understood. Patient then asked if she could have meals delivered. I explained I would reach out to her social science manager here at the hospital for further guidance on resources when she gets home. Secure chat sent to KEESHA Chetna regarding this. [facility] 04-13-2024 Note Formatting of this n ote might be different from the original. Phone conversation with the patient at their request from the [facility] regarding her established home care. Patient was wondering what services were being provided and what expectations to have for HHC. I explained her current ordered services and she stated she understood. Patient then asked if she could have meals delivered. I explained I would reach out to her social science manager here at the hospital for further guidance on resources when she gets home. Secure chat sent to KEESHA Chetna regarding this. T [facility] 04-13-2024 Miscellaneous Notes Phone conversation with the patient at their request from the [facility] regarding her established home care. Patient was wondering what services were being provided and what expectations to have for HHC. I explained her current ordered services and she stated she understood. Patient then asked if she could have meals delivered. I explained I would reach out to her social science manager here at the hospital for further guidance on resources when she gets home. Secure chat sent to KEESHA Chetna regarding this. Images from the original note were not included. Care Management Progress Note INR 2.3 today. Hep drip continued, plan to DC to [facility] today. Plan to have PT seen patient today per her request. Patient is active with [facility]. Await treatment plan and clinical progress. dot compliance manager will continue to follow for transitional [...] Virginia Rehman RN 04/09/2024 8:13 AM 04/08/2024 Virginai Rehman RN 04/06/2024 8:13 AM hep gtt, poss thrombectomy 04/07/2024 Virginia Rehman, RADHA 04/05/2024 8:03 AM hep gtt, poss thrombectomy tomorrow" 04/06/2024 Virginia Rehman RN 04/04/2024 8:48 AM hep gtt, oliva lower US, vasc consult" 04/06/2024 Bernie Cutler APRN - CLOTH TRIMMER HAND 04/04/2024 4:04 AM 04/06/2024 Bernie Cutler APRN - SHAMIKA 04/03/2024 11:17 PM Length of Stay (Days): [...] oral when appropriate. Pt active with inna [facility]- will continue services at discharge. Await treatment plan and clinical progress. dot compliance manager will continue to follow for transitional care needs for discharge planning. Discharge Milestones and Delays Expected date/time: 04/13/2024 Expected discharge disposition: Home Health Services Discharge Milestones Place discharge order Complete med reconciliation Case mgmt discharge readiness Clinical Stability Diagnostic Workup Quartz Cutter Recommendations Facility Choice Selection Imaging Results PT [...] vasc consult" 04/06/2024 Bernie Cutler APRN - CLOTH TRIMMER HAND 04/04/2024 4:04 AM 04/06/2024 Bernie Cutler APRN - CLOTH TRIMMER HAND 04/03/2024 11:17 PM Length of Stay (Days): [...] oral when appropriate. Pt active with inna [facility]- will continue services at discharge. Await treatment plan and clinical progress. dot compliance manager will continue to follow for transitional [...] SEBASTIAN Herrera CNP 04/04/2024 4:04 AM 04/06/2024 Bernie Cutler APRN - SHAMIKA 04/03/2024 11:17 PM Length of Stay (Days): [...] discharge. Await treatment plan and clinical progress. dot compliance manager will continue to follow for transitional care needs for discharge planning. Discharge Milestones and Delays Expected date/time: 04/11/2024 Expected discharge disposition: Home or Self Care Discharge Milestones Place discharge order Complete med reconciliation Case mgmt discharge readiness Clinical Stability Diagnostic Workup Quartz Cutter Recommendations Facility Choice Selection Imaging Results Patient [...] vasc consult" 04/06/2024 Bernie Cutler APRN - CLOTH TRIMMER HAND 04/04/2024 4:04 AM 04/06/2024 Bernie Cutler APRN - CLOTH TRIMMER HAND 04/03/2024 11:17 PM Length of Stay (Days): 7 GMLOS: 4 Images from the original note were not included. Care Management Progress Note Remains on heparin gtt while transitioning to coumadin. Consult Hemology. Pt active with inna [facility]- will continue services at discharge. Await treatment plan and clinical progress. dot compliance manager will continue to follow for transitional care needs for discharge planning. Discharge Milestones and Delays Expected date/time: 04/10/2024 Expected discharge disposition: Home or Self Care Discharge Milestones Place discharge order Complete med reconciliation Case mgmt discharge readiness Clinical Stability Diagnostic Workup Quartz Cutter Recommendations Facility Choice Selection Imaging Results Patient [...] vasc consult" 04/06/2024 Bernie Cutler APRN - CLOTH TRIMMER HAND 04/04/2024 4:04 AM 04/06/2024 Bernie Cutler APRN - CLOTH TRIMMER HAND 04/03/2024 11:17 PM Length of Stay (Days): [...] vasc consult" 04/06/2024 Bernie Cutler APRN - CLOTH TRIMMER HAND 04/04/2024 4:04 AM 04/06/2024 Bernie Cutler APRN - CLOTH TRIMMER HAND 04/03/2024 11:17 PM Length of Stay (Days): 3 GMLOS: 3.1 Patient report called to 4N RN and denies any further questions. Patient resting comfortably and no signs of distress. Per resident patient to lay flat for 2 hours and restart heparin GTT at 1215. Transport notified. SW assisted patient with completion of Health Care Power of Plc Engineer. One copy placed in patient chart, one copy sent to medical records and two copies given to patient. Requested by patient, while at bedside this SW spoke to patient's son via patients phone to explain that HCPOA was being completed by patient. Patients son José Miguel Castillo ([phone]) agreed to be this patients agent on [...] technique was used to place a 5 Slovenian sheath. A Bentson wire was able to be advanced in the inferior vena cava without difficulty. The 5 Slovenian sheath was then upsized to a 16 Slovenian sheath and the penumbra flash suction thrombectomy device was prepared per university librarian's instructions. The patient was also given 5000 units of heparin for systemic anticoagulation at this time. The Penumbra device was then inserted through the 16 Slovenian sheath and a suction thrombectomy was performed [...] device was removed as was the 16 Slovenian sheath and an 0 silk suture was [...] Blankenship MD Vascular Surgery Date: 04/06/2024 Location: [facility] OR Name: Mel Pop, : 1940, Diagnosis Pre-op Diagnosis * Right leg DVT (HCC) [I82.401] Post-op Diagnosis * Right leg DVT (HCC) [I82.401] Procedures RIGHT LOWER EXTREMITY VENOUS MECHANICAL THROMBECTOMY 04590 - MD PRQ TRANSLUMINAL MECHANICAL THROMBECTOMY VEIN Surgeons * Kristyn Blankenship - Primary Procedure Summary Anesthesia: General ASA: III Estimated Blood Loss: 300 mL Drains: * None in log * Staff: Communications Writer: Negrita Rey RN; Amira Burton RN Scrub [...] from home alone- indep [facility]- will return. Discharge Milestones and Delays Expected date/time: 04/07/2024 Expected discharge disposition: Home or Self Care Discharge Milestones Place discharge order Complete med reconciliation Case mgmt discharge readiness Clinical Stability Diagnostic Workup Facility Choice Selection Patient Education Complete Expected Discharge History Expected Date/Time Set By Reviewed At 04/07/2024 Virginai Rehman RN 04/05/2024 8:03 AM hep gtt, [...] Limits Permission given to speak with patient retail wireless sales representative/caregiver as indicated: Confirmation of Payer [...] Transportation/Shopping: Assistance Provider Transportation/Shopping Assistance Provider Name: friends Transportation Mode: Car Needs Assistance with Transportation at Discharge: No Meal Preparation: Independent Laundry/Cleaning: Independent Finances/Bill Paying: Independent Communication: Independent Types of Care Services/Equipment Utilized Care Services: Skilled Home Health Services Care Services Provider Name: inna G[facility] Dialysis Type: NA Durable Medical Equipment: Cane, [...] home alone and indep. Pt active with [facility]- liaison following for continued services. Pt uses walker/cane at baseline. Pt has insurance, PCP and able to obtain meds. Pt's friends help with transportation. No needs antic at discharge. Virginia Rehman RN Start PACC Note Home Health Referral Educated patient on Home Care and services available. Patient offered choice of available HHC and agreeable to SN/PT services with [facility] at [facility] - Home Care. Care Types: [...] is noted as yes - consider a TANK BOTTOM ASSEMBLER evaluation once the patient returns home. START PATIENT REGISTRATION INFORMATION Order Information Order Signing Physician: Robert Vigil MD Service Ordered RN ?: Yes Service Ordered PT ?: Yes Service Ordered OT ?: No Service Ordered ST ?: No Service Ordered TANK BOTTOM ASSEMBLER?:No Service Ordered ADMINISTRATIVE SPECIALIST?: No Following Physician: Jared Evans MD Following Physician Overseeing Physician: Jared Evans MD (Required for Residents only) Agreeable to Follow? Yes Date/Time of Call 04/04/24 11:36 AM, Spoke with: Patient is a DEB. Care Coordination Same Day SOC?: No Primary Care Physician: Jared Evans MD Primary Care Physician Primary Care Physician Address: [address] [place] [id number] Visit Instructions: N/A Service Discharge Location Type: Home with Home Care Service Facility Name: N/A Service Floor Facility: N/A Service Room No: N/A Demographics Patient Last Name: Jose Alberto Patient First Name: Mel Language/Communication Barrier: none Service Address: [address] Service City: [place] Service ST: [place] Service ZIP: [address] Service Other phone numbers: Telephone Information: Emergency Contact: Extended Emergency Contact Information Primary Emergency Contact: BroderickDamaris Mobile Relation: Friend Secondary Emergency Contact: CastilloJosé Miguel/ Fidel Mobile Relation: Child Admission Information Admit Date: 04/03/2024 Patient status at discharge: Inpatient Admitting Diagnosis: Right leg pain [M79.604] Peripheral arterial disease (HCC) [I73.9] Right leg weakness [R29.898] Atrial fibrillation, unspecified type (HCC) [I48.91] Caregiver Information Caregiver First Name: polo Caregiver Last Name: polo Caregiver Relationship to Patient na Caregiver Phone Number: na Caregiver Notes: N/A [employer] List No END PATIENT REGISTRATION INFORMATION Pt [...] intervention. Discharge Date: pending Referral Source-PACC: (Hospital/Unit): [facility] / N4-461/N4-461 B End PACC Note The patient is Moderately Stable - Low risk of patient condition declining or worsening The patient's goals for the shift include safety The clinical goals for the shift include therapeutic aptt Patient is currently active with [facility]. The patients current certification period will on 05/18/24. The patient is currently receiving PT services through the agency. Sanitation Truck Cleaner to continue to follow. ADVANCED CARE PLANNING Mel Pop : 1940 Primary Care Physician: Jared Evans MD The patient and/or family/surrogate voluntarily agreed to participate in ACP services. Patient s cognitive capacity: intact Code Status: [ ] [FULL CODE - Continue all advanced life support: CPR,intubation,invasive procedures] [X] [DNR-CCA - DO NOT do CPR, intubation] [_] [DNR-BUSINESS QUALITY ASSURANCE ANALYST - Comfort care only] [_] DNR form [...] life care, with patient and/or family/surrogate. Pratibha Avelar, Acute care solutions 04/04/2024, 5:40 AM The patient is Moderately Stable - Low risk of patient condition declining or worsening The patient's goals for the shift include met The clinical goals for the shift include met Over the shift, the patient did not make progress toward the following goals. Barriers to progression include . Recommendations to address these barriers include . documented in this encounter [facility] 04-13-2024 Note [facility] 04-13-2024 Hospital course Narrative Discharge Summary Mel Pop : 1940 ADMIT DATE: 04/03/2024 DISCHARGE DATE: 04/13/2024 PRIMARY CARE PHYSICIAN: Jared Evans VISIT STATUS: Admission CODE STATUS: DNR-CCA DISCHARGE DIAGNOSES: Principal Problem: Peripheral arterial disease (HCC) Bilateral lower extremity DVTs RLE thrombectomy HOSPITAL COURSE: 83-year-old woman with history of A-fib on Eliquis, tobacco use, hypertension, hyperlipidemia, asthma, hiatal hernia, GERD presented to [facility] on 04/03 with right leg pain, numbness, tingling causing difficulty ambulating. 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 She underwent venous thrombectomy with vascular surgery and was initiated on warfarin bridging with heparin. [facility] followed and managed bridging anticoagulation. Pt reported feeling improvement from day to day. Though she was concerned that being stuck in the hospital will debilitate her.Her INR was therapeutic on 04/13. [facility] recommended transition to Warfarin alternating [...] tablet (5mg) on 04/15 Follow up with [facility] pharmacy for further dosing CONTINUE taking these medications albuterol 108 (90 Base) MCG/ACT inhaler ascorbic acid 500 MG tablet Commonly known as: Vitamin C lisinopril 5 MG tablet pantoprazole 40 MG EC tablet Commonly known as: ProtoNix Trelegy Ellipta 100-62.5-25 MCG/ACT aerosol powder Generic drug: Xsicaqyluzv-Scsewarsz-Pqjaiw STOP taking these medications Eliquis 5 MG tablet Generic drug: apixaban Where to Get Your Medications These medications were sent to [facility] [address] [place] [id number] Hours: Tuesday to Tuesday 10 am to 6 pm oxyCODONE 5 MG immediate release tablet warfarin 5 MG tablet DIET: Adult diet Regular ACTIVITY: No restriction. COMPLEXITY OF FOLLOW UP: [x] Moderate Complexity: follow up within 7-14 calendar days (51921) [] Severe Complexity: follow up within 7 calendar days (22997) FOLLOW UP TESTING, PENDING RESULTS OR REFERRALS AT TRANSITIONAL CARE VISIT: [] Yes [x] No PENDING STUDIES: none DISPOSITION: Home with Home Health Care FACILITY/HOME CARE AGENCY NAME: [facility] Follow up with Kristyn Blankenship MD [address] [facility] [address] [facility] [address] Schedule an appointment as soon as possible for a visit [facility] clinic for INR check next week [...] 04/13/2024, 2:20 PM documented in this encounter [facility] 04-13-2024 History of Present illness Narrative Images from the original note were not included. PHYSICAL THERAPY [facility] Treatment Note Name/MRN: Mel Pop ([id number]) Date of : 1940 Age: 83 y.o. Room/Bed: N4-461/N4461 B Discharge Recommendation: Home with Home health [...] 1045 Minutes 13 (Gait) Christin Gu PT [facility] Anticoagulation Management Service ([facility]) Inpatient Warfarin Consult HPI: Mel Pop is a 83 y.o. female admitted on 04/03/2024 for Peripheral arterial disease (HCC). Past Medical History: Diagnosis Date Asthma Essential hypertension 03/07/2020 GERD (gastroesophageal reflux disease) Hiatal hernia Pure hypercholesterolemia 03/07/2020 Patient is newly referred to the [facility] clinic for warfarin management. Pt was [...] PharmD G[facility]A Consult Service is available daily [phone] via [employer]. If no response, please page [phone]. Hospitalist Progress Note 04/13/2024 Subjective: Admit Date: 04/03/2024 PCP: Jared Evans MD Room#: N4-461/N4461 B BRIEF HOSPITAL COURSE: 83-year-old woman with history of A-fib on Eliquis, tobacco use, hypertension, hyperlipidemia, asthma, hiatal hernia, GERD presented to [facility] on 04/03 with right leg pain, numbness, tingling causing difficulty ambulating. 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 She underwent venous thrombectomy with vascular surgery and was initiated on warfarin bridging with heparin. [facility] followed and managed bridging anticoagulation. Pt reported feeling improvement from day to day. Though she was concerned that being stuck in the hospital will debilitate her.Her INR was therapeutic on 04/13. [facility] recommended transition to Warfarin alternating 5mg/7.5mg dosing and close OP follow up for INR check. Interval History: Pt seen and examined at bedside. No acute events overnight. Requested to work with PT this morning. They recommend home PT. Heparin gtt discontinued, plan for alternating 5/7.5 dosed warfarin and close OP follow up with [facility]. Case and plan discussed with patient [...] Pure hypercholesterolemia 03/07/2020 LABS: CBC: Recent Labs 04/11/24 0027 04/12/24 0519 04/13/24 0359 WBC 4.5 4.1 4.2 RBC 2.72* 3.06* 2.89* HGB 8.3* 9.3* 8.6* HCT 24.6* 28.3* 26.3* MCV 90.4 92.5 91.0 RDW 14.8 14.8 14.5 PLT 244 307 317 BMP: Recent Labs 04/11/24 0027 04/12/24 0519 04/13/24 035 NA 134* 135 135 K 4.0 3.9 4.3 CL 108* 108* 108* CO2 25 BUN 16 16 18* CREATININE 1.01 0.99 1.00 GLUCOSE 112* 101* 98 CALCIUM 8.8 9.3 9.0 ANIONGAP 4 3 2* LIVER PROFILE:No results for input(s): "AST", "ALT", "BILITOT", "ALKPHOS", "PROT" in the last 72 hours. No lab exists for component: LABALBU PT/INR: Recent Labs 04/11/24 0027 04/12/24 0519 04/13/24 0359 PROTIME 20.9* 20.3* 24.2* INR 1.9* 1.9* [...] person, place, and time. Medications: Scheduled PRN Tstdwrglzxe-Mqeuofzkz-Hiblqr, 1 puff, Inhalation, Daily influenza, 0.5 mL, [...] was pursued: -Heparin bridge to warfarin per Gabriella recommendations - INR therapeutic on 04/13 - [...] Jordin Roldan MD Division of Hospitalist Medicine [facility] Hospitalist Progress Note 04/12/2024 Subjective: Admit Date: 04/03/2024 PCP: Jared Evans MD Room#: N4-461/N4-46 B BRIEF HOSPITAL COURSE: 83-year-old woman with history of A-fib on Eliquis, tobacco use, hypertension, hyperlipidemia, asthma, hiatal hernia, GERD presented to [facility] on 04/03 with right leg pain, numbness, tingling causing difficulty ambulating. 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 She underwent venous thrombectomy with vascular surgery [...] person, place, and time. Medications: Scheduled PRN Fnjlyazccfa-Rhzsqrbbi-Ytivti, 1 puff, Inhalation, Daily influenza, 0.5 mL, [...] Extended Emergency Contact Information Primary Emergency Contact: VasughassanDamaris Mobile Relation: Friend Secondary Emergency Contact: José Miguel Castillo/ Fidel Mobile Relation: Child Jordin Roldan MD Division of Hospitalist Medicine [facility] Anticoagulation Management Service (GABRIELLA) Inpatient Warfarin Consult [...] PharmD GABRIELLA Consult Service is available daily [phone] via SiTune Secure Chat. If no response, please page [phone]. Images from the original note were not included. OCCUPATIONAL THERAPY [facility] Initial Evaluation Name/MRN: Mel Pop ([id number]) Evaluation Date: 04/11/2024 Date of : 1940 Admission Date: 04/03/2024 5:47 PM Age: 83 y.o. 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 03/07/2020 Seasonal allergies 03/07/2020 Chronic renal insufficiency, stage III (moderate) ([facility]) 03/07/2020 Major depression, single episode, in complete remission ([facility]) 03/07/2020 Gastroesophageal reflux disease without esophagitis 03/07/2020 Essential hypertension 03/07/2020 Pure hypercholesterolemia 03/07/2020 Overweight 03/07/2020 Psoriasis 03/07/2020 History of cerebrovascular accident 03/07/2020 Atrial fibrillation ([facility]) 03/07/2020 Chronic obstructive pulmonary disease ([facility]) 03/07/2020 Finger osteomyelitis, right ([facility]) 03/06/2020 Medical Precautions: No active isolations Proper [...] Responsibilities: Independent Receives Help From: None Active Edge Brusher: Yes Prior Level of Function ADL Assistance: [...] In 1132 Time Out 1144 Minutes 12 MAMIE Lantigua/Weston Patient's Occupational Therapy Plan of Care supervision is transferred to a [facility] Therapy Services Occupational Therapist. Goals and/or treatment plan was established in collaboration with patient/family/other representatives. Hospitalist Progress Note 04/11/2024 Subjective: Admit Date: 04/03/2024 PCP: Jared Evans MD Room#: N4-461/N4-461 B BRIEF HOSPITAL COURSE: 83-year-old woman with history of A-fib on Eliquis, tobacco use, hypertension, hyperlipidemia, asthma, hiatal hernia, GERD presented to [facility] on 04/03 with right leg pain, numbness, tingling causing difficulty ambulating. 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 She underwent venous thrombectomy with vascular surgery [...] person, place, and time. Medications: Scheduled PRN Xajeyzwwpwk-Ngvfpbmrj-Cjmziu, 1 puff, Inhalation, Daily influenza, 0.5 mL, [...] Miguel Castillo/ Fidel Mobile Relation: Child Jordin Ramy MD Jamar Division of Hospitalist Medicine Acute [facility] Images from the original note were not included. PHYSICAL THERAPY [facility] Initial Evaluation Name/MRN: Mel Pop ([id number]) Evaluation Date: 04/11/2024 Date of : 1940 Admission Date: 04/03/2024 5:47 PM Age: 83 y.o. 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 03/07/2020 Seasonal allergies 03/07/2020 Chronic renal insufficiency, stage III (moderate) ([facility]) 03/07/2020 Major depression, single episode, in complete remission ([facility]) 03/07/2020 Gastroesophageal reflux disease without esophagitis 03/07/2020 Essential hypertension 03/07/2020 Pure hypercholesterolemia 03/07/2020 Overweight 03/07/2020 Psoriasis 03/07/2020 History of cerebrovascular accident 03/07/2020 Atrial fibrillation ([facility]) 03/07/2020 Chronic obstructive pulmonary disease ([facility]) 03/07/2020 Finger osteomyelitis, right ([facility]) 03/06/2020 Medical Precautions: No active isolations Proper [...] Stairs) : 19 JH-HLM -HLM Score: Walked 10 steps or more (i.e. [...] of Care supervision is transferred to a [facility] Therapy Services Physical Therapist. Goals and/or treatment plan was established in collaboration with patient/family/other representatives. [facility] Anticoagulation Management Service (GABRIELLA) Inpatient Warfarin Consult [...] and adjust dose accordingly. 3. Will facilitate [facility] follow-up upon discharge. Patient is agreeable to [facility] follow up. 4. Provided warfarin education. Marybeth Rahman RPh, PharmD GABRIELLA Consult Service is available daily [phone] via SiTune Secure Chat. If no response, please page [phone]. Hospitalist Progress Note 04/10/2024 Subjective: Admit Date: 04/03/2024 PCP: Jared Evans MD Room#: N4-461/N4-461 B BRIEF HOSPITAL COURSE: 83-year-old woman with history of A-fib on Eliquis, tobacco use, hypertension, hyperlipidemia, asthma, hiatal hernia, GERD presented to [facility] on 04/03 with right leg pain, numbness, tingling causing difficulty ambulating. 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 She underwent venous thrombectomy with vascular surgery [...] 223 235 238 BMP: Recent Labs 04/08/24 0020 04/09/24 0153 04/10/24 0601 NA 135 136 136 [...] Roldan MD Division of Hospitalist Medicine Acute [facility] Nutrition update completed. Chart reviewed. Patient to be monitored and followed by the diet laser technician. FADI Farrar [facility] Anticoagulation Management Service ([facility]) Inpatient Warfarin Consult HPI: Mel Pop is a 83 y.o. female admitted on 04/03/2024 for Peripheral arterial disease (HCC). Past Medical History: Diagnosis Date Asthma Essential hypertension 03/07/2020 GERD (gastroesophageal reflux disease) Hiatal hernia Pure hypercholesterolemia 03/07/2020 Patient is newly referred to the [facility] clinic for warfarin management. Pt was [...] Will determine if pt is agreeable to [facility] follow-up. 4. Will provide warfarin education. Marybeth Rahman RPh, PharmD [facility] Consult Service is available daily [phone] via SiTune Secure [employer]. If no response, please page [phone]. Hospitalist Progress Note 04/09/2024 Assessment/Plan: Data: (CAT1) [...] asthma, hiatal hernia, GERD who presented to [place] 04/03 with right leg pain, numbness, tingling causing difficulty ambulating. CTA of LE, showing severe LE atherosclerotic disease with bilateral superficial femoral artery occlusion, and was transferred to [facility] for admission. Interval History: Mild shortness of [...] hypercholesterolemia 03/07/2020 LABS: CBC: Recent Labs 04/07/24 02504/08/24 0020 04/09/24 0153 WBC 4.0 7.5 6.9 RBC 2.86* 2.85* 3.02* HGB 8.6* 8.6* 9.0* HCT 27.0* 27.0* 28.2* MCV 94.4 94.7 93.4 RDW 14.3 14.8 14.8 PLT 202 223 235 BMP: Recent Labs 04/07/2425004/08/24 0020 04/09/24 0153 NA 136 135 136 [...] exists for component: LABALBU PT/INR: Recent Labs 04/07/2425004/08/24 0020 04/09/24 0153 PROTIME 11.1 11.2 13.8* [...] [place] Mobile Relation: Friend Secondary Emergency Contact: CastilloJosé Miguel/ Fidel Mobile Relation: Child Robert Vigil MD Division of Hospitalist Medicine [facility] Anticoagulation Management Service (GABRIELLA) Inpatient Warfarin Consult HPI: Mel Pop is a 83 y.o. female admitted on 04/03/2024 for Peripheral arterial disease (HCC). Past Medical History: Diagnosis Date Asthma Essential hypertension 03/07/2020 GERD (gastroesophageal reflux disease) Hiatal hernia Pure hypercholesterolemia 03/07/2020 Patient is newly referred to the [facility] clinic for warfarin management. Pt was [...] PharmD GABRIELLA Consult Service is available daily [phone] via SiTune Secure Chat. If no response, please page [phone]. Hospitalist Progress Note 04/08/2024 Assessment/Plan: Data: (CAT1) [...] asthma, hiatal hernia, GERD who presented to [place] 04/03 with right leg pain, numbness, tingling causing difficulty ambulating. CTA of LE, showing severe LE atherosclerotic disease with bilateral superficial femoral artery occlusion, and was transferred to [facility] for admission. Interval History: Pain continues to [...] Robert Vigil MD Division of Hospitalist Medicine [facility] Anticoagulation Management Service (GABRIELLA) Inpatient Warfarin Consult HPI: Mel Pop is a 83 y.o. female admitted on 04/03/2024 for Peripheral arterial disease (HCC). Past Medical History: Diagnosis Date Asthma Essential hypertension 03/07/2020 GERD (gastroesophageal reflux disease) Hiatal hernia Pure hypercholesterolemia 03/07/2020 Patient is newly referred to the [facility] clinic for warfarin management. Pt was [...] Will determine if pt is agreeable to [facility] follow-up. 4. Will provide warfarin education. Michelle Lugo RPh, PharmD [facility] Consult Service is available daily [phone] via SiTune Secure [employer]. If no response, please page [phone]. Hospitalist Progress Note 04/07/2024 Assessment/Plan: Data: (CAT1) [...] Anticipate DC pending clinical improvement and pain., Quartz Cutter recommendations, Coumadin bridge with heparin Total time [...] asthma, hiatal hernia, GERD who presented to [place] 04/03 with right leg pain, numbness, tingling causing difficulty ambulating. CTA of LE, showing severe LE atherosclerotic disease with bilateral superficial femoral artery occlusion, and was transferred to [facility] for admission. Interval History: Pain improved today, [...] Robert Vigil MD Division of Hospitalist Medicine [facility] Anticoagulation Management Service (GABRIELLA) Inpatient Warfarin Consult HPI: Mel Pop is a 83 y.o. female admitted on 04/03/2024 for Peripheral arterial disease (HCC). Past Medical History: Diagnosis Date Asthma Essential hypertension 03/07/2020 GERD (gastroesophageal reflux disease) Hiatal hernia Pure hypercholesterolemia 03/07/2020 Patient is newly referred to the [facility] clinic for warfarin management. Pt was [...] PharmD GABRIELLA Consult Service is available daily [phone] via SiTune Secure Chat. If no response, please page [phone]. Department of General Surgery Daily Progress Note [...] in chart for Dr Blankenship clinic D/w George Sarah MD PGY5, General Surgery Pager #[phone] CDI Query Response: Acute thrombus within the [...] Anticipate DC pending clinical improvement and pain., Quartz Cutter recommendations, Coumadin bridge with heparin Total time [...] asthma, hiatal hernia, GERD who presented to [place] 04/03 with right leg pain, numbness, tingling causing difficulty ambulating. CTA of LE, showing severe LE atherosclerotic disease with bilateral superficial femoral artery occlusion, and was transferred to [facility] for admission. Interval History: Has significant pain [...] PROT 7.7 PT/INR: Recent Labs 04/03/24191704/05/24 0739 04/05/24 2307 PROTIME 11.7 11.9 11.4 [...] Robert Vigil MD Division of Hospitalist Medicine Acute [facility] Department of General Surgery Daily Progress [...] PLT 266 204 207 BMP: Recent Labs 04/03/24 1918 04/04/24 0608 04/05/24 0739 NA 135 135 133* K 5.7* 4.5 4.8 CL 107 110* 113* CO2 20* 18* 17* BUN 29* 30* 25* CREATININE 1.54* 1.45* 1.12* GLUCOSE 115* 100 102* Hepatic: Recent Labs 04/03/248 AST 19 ALT 10 BILITOT 1.1 ALKPHOS 91 Current Inpatient Medications Scheduled Meds:influenza, 0.5 mL, IntraMUSCular, Once lisinopril, 5 mg, Oral, Daily mometasone-formoterol, 2 puff, Inhalation, BID pantoprazole, 40 mg, Oral, qAM AC tiotropium, 2 puff, Inhalation, Daily Continuous Infusions:heparin, 5-30 Units/kg/hr, Last Rate: 13 Units/kg/hr (04/05/241616) sodium chloride, 125 mL/hr, Last Rate: 125 mL/hr (04/05/241615) PRN Meds:PRN medications: acetaminophen OR acetaminophen, albuterol, [...] at her request and I spoke with Fidelsimran Castillo and updated her as well. All questions have been answered to their satisfaction. [facility] Anticoagulation Management Service (GABRIELLA) Inpatient Warfarin Consult HPI: Mel Pop is a 83 y.o. female admitted on 04/03/2024 for Peripheral arterial disease (HCC). Past Medical History: Diagnosis Date Asthma Essential hypertension 03/07/2020 GERD (gastroesophageal reflux disease) Hiatal hernia Pure hypercholesterolemia 03/07/2020 Patient is newly referred to the [facility] clinic for warfarin management. Pt was [...] was held yesterday for thrombectomy today. Per GHULAM Wilkins to resume warfarin tonight - will give 2.5mg. Bridging with heparin drip. 2. Will monitor for s/s of bleeding and drug interactions and adjust dose accordingly. 3. Will determine if pt is agreeable to [facility] follow-up 4. Will provide warfarin education. Marybeth Rahman RPh, PharmD [facility] Consult Service is available daily [phone] via SiTune Secure Chat. If no response, please page [phone]. Hospitalist Progress Note 04/05/2024 Assessment/Plan: Data: (CAT1) [...] Discharge Disposition: Anticipate DC pending clinical improvement, funeral pre need consultant recommendations Total time spent (which include [...] Date: 04/03/2024 PCP: Jared Evans MD Room#: N4461/N4461 B Brief Hospital course: Patient is an 83-year-old female with history of A-fib on Eliquis, significant tobacco use, HTN, HLD, asthma, hiatal hernia, GERD who presented to [place] 04/03 with right leg pain, numbness, tingling causing difficulty ambulating. CTA of LE, showing severe LE atherosclerotic disease with bilateral superficial femoral artery occlusion, and was transferred to [facility] for admission. Interval History: Had more RLE pain earlier this morning, but improved on my evaluation Adult diet Regular NPO diet with enteral medications 24HR INTAKE/OUTPUT: No intake or output data in the 24 hours ending 04/05/24 1453 Past Medical History: Past Medical History: Diagnosis Date Asthma Essential hypertension 03/07/2020 GERD (gastroesophageal reflux disease) Hiatal hernia Pure hypercholesterolemia 03/07/2020 LABS: CBC: Recent Labs 04/03/24191704/04/24 0608 04/05/24 0739 WBC 9.3 8.1 6.1 [...] Robert Vigil MD Division of Hospitalist Medicine [facility] Nutrition rescreen completed. Chart reviewed. Patient to be monitored and followed by the diet laser technician. FADI Harmon [facility] Anticoagulation Management Service ([facility]) Inpatient Warfarin Consult HPI: Mel Pop is a 83 y.o. female admitted on 04/03/2024 for Peripheral arterial disease (HCC). Past Medical History: Diagnosis Date Asthma Essential hypertension 03/07/2020 GERD (gastroesophageal reflux disease) Hiatal hernia Pure hypercholesterolemia 03/07/2020 Patient is newly referred to the [facility] clinic for warfarin management. Pt was [...] PharmD GABRIELLA Consult Service is available daily [phone] via SiTune Secure Chat. If no response, please page [phone]. Department of General Surgery Daily Progress Note [...] 38.8 PLT 283 266 BMP: Recent Labs 09/17/24 1918 09/18/24 0608 NA 135 135 K 5.7* 4.5 [...] Infusions:heparin, 5-30 Units/kg/hr, Last Rate: 14 Units/kg/hr (04/05/24122) sodium chloride, 125 mL/hr, Last Rate: 125 mL/hr (04/05/24122) PRN Meds:PRN medications: acetaminophen OR acetaminophen, albuterol, [...] Naik MD General Surgery PGY-4 Pager # [phone] Associated attestation - Kristyn Blankenship MD - [...] NPO at midnight for possible thrombectomy tomorrow. [facility] Anticoagulation Management Service ([facility]) Inpatient Warfarin Consult HPI: Mel Pop is a 83 y.o. female admitted on 04/03/2024 for Peripheral arterial disease (HCC). Past Medical History: Diagnosis Date Asthma Essential hypertension 03/07/2020 GERD (gastroesophageal reflux disease) Hiatal hernia Pure hypercholesterolemia 03/07/2020 Patient is newly referred to the [facility] clinic for warfarin management. Pt was [...] Will determine if pt is agreeable to [facility] follow-up 4. Will provide warfarin education. Thank you for this consult Marybeth Rahman RPh, PharmD [facility] Consult Service is available daily [phone] via SiT[employer] Secure [employer]. If no response, please page [phone]. Nonbillable encounter. Patient was seen by provider earlier today Patient is an 83-year-old female with history of A-fib on Eliquis, significant tobacco use, HTN, HLD, asthma, hiatal hernia, GERD who presented to [place] 04/03 with right leg pain, numbness, tingling causing difficulty ambulating. CTA of LE, showing severe LE atherosclerotic disease with bilateral superficial femoral artery occlusion, and was transferred to [facility] for admission. Severe bilateral LE atherosclerotic disease [...] Eliquis -Smoking cessation documented in this encounter [facility] 04-13-2024 Note Formatting of this n ote is different from the original. Images from the original note were not included. Care Management Progress Note INR 2.3 today. Hep drip continued, plan to DC to [facility] today. Plan to have PT seen patient today per her request. Patient is active with [facility]. Await treatment plan and clinical progress. dot compliance manager will continue to follow for transitional [...] vasc consult" 04/06/2024 Bernie Cutler APRN - CLOTH TRIMMER HAND 04/04/2024 4:04 AM 04/06/2024 Bernie Cutler APRN - CLOTH TRIMMER HAND 04/03/2024 11:17 PM Length of Stay (Days): 10 GMLOS: 4 [facility] 04-13-2024 Note Formatting of this n ote is different from the original. Images from the original note were not included. Care Management Progress Note INR 2.3 today. Hep drip continued, plan to DC to [facility] today. Plan to have PT seen patient today per her request. Patient is active with [facility]. Await treatment plan and clinical progress. dot compliance manager will continue to follow for transitional [...] vasc consult" 04/06/2024 Bernie Cutler APRN - CLOTH TRIMMER HAND 04/04/2024 4:04 AM 04/06/2024 Bernie Cutler APRN - CLOTH TRIMMER HAND 04/03/2024 11:17 PM Length of Stay (Days): 10 GMLOS: 4 [facility] 04-13-2024 Plan of care note The [...] plan, medications, and discharge instructions Outcome: Progressing [facility] 04-12-2024 Plan of care note Problem: [...] patient condition declining or worsening [facility] 04-12-2024 Note Formatting of this n ote is different from the original. Images from the original note were not included. Care Management Progress Note Patent currently still on Hep Drip, INR 1.9. Will convert to oral when appropriate. Pt active with [facility]- will continue services at discharge. Await treatment plan and clinical progress. dot compliance manager will continue to follow for transitional care needs for discharge planning. Discharge Milestones and Delays Expected date/time: 04/13/2024 Expected discharge disposition: Home Health Services Discharge Milestones Place discharge order Complete med reconciliation Case mgmt discharge readiness Clinical Stability Diagnostic Workup Quartz Cutter Recommendations Facility Choice Selection Imaging Results PT [...] vasc consult" 04/06/2024 Bernie Cutler APRN - CLOTH TRIMMER HAND 04/04/2024 4:04 AM 04/06/2024 SEBASTIAN Herrera CNP 04/03/2024 11:17 PM Length of Stay (Days): 9 GMLOS: 4 [facility] 04-12-2024 Note Formatting of this n ote is different from the original. Images from the original note were not included. Care Management Progress Note Patent currently still on Hep Drip, INR 1.9. Will convert to oral when appropriate. Pt active with [facility]- will continue services at discharge. Await treatment plan and clinical progress. dot compliance manager will continue to follow for transitional care needs for discharge planning. Discharge Milestones and Delays Expected date/time: 04/13/2024 Expected discharge disposition: Home Health Services Discharge Milestones Place discharge order Complete med reconciliation Case mgmt discharge readiness Clinical Stability Diagnostic Workup Quartz Cutter Recommendations Facility Choice Selection Imaging Results PT [...] APRN - SHAMIKA 04/04/2024 4:04 AM 04/06/2024 Bernie Cutler APRN - [employer]OTH TRIMMER HAND 04/03/2024 11:17 PM Length of Stay (Days): 9 GMLOS: 4 [facility] 04-12-2024 Plan of care note The [...] plan, medications, and discharge instructions Outcome: Progressing T [facility] 04-11-2024 Note Formatting of this n ote is different from the original. Images from the original note were not included. Care Management Progress Note Patent currently still on Hep Drip, INR 1.9. Will convert to oral when appropriate. [facility]- will continue services at discharge. Await treatment plan and clinical progress. dot compliance manager will continue to follow for transitional [...] oliva [place], vasc consult" 04/06/2024 Bernie Cutler, VOCATIONAL EDUCATION PROFESSIONAL - CLOTH TRIMMER HAND 04/04/2024 4:04 AM 04/06/2024 Bernie Cutler APRN - CLOTH TRIMMER HAND 04/03/2024 11:17 PM Length of Stay (Days): 8 GMLOS: 4 [facility] 04-11-2024 Note Formatting of this n ote is different from the original. Images from the original note were not included. Care Management Progress Note Patent currently still on Hep Drip, INR 1.9. Will convert to oral when appropriate. Pt active with [facility]- will continue services at discharge. Await treatment plan and clinical progress. dot compliance manager will continue to follow for transitional [...] [place], vasc consult" 04/06/2024 Bernie Cutler APRN [facility] 04/04/2024 4:04 AM 04/06/2024 Bernie Cutler APRN [facility] 04/03/2024 11:17 PM Length of Stay (Days): 8 GMLOS: 4 [facility] 04-11-2024 Plan of care note Problem: [...] risk of patient condition declining or worsening [facility] 04-11-2024 Plan of care note The [...] baseline comfort level Outcome: Progressing [facility] 04-10-2024 Plan of care note Problem: Pain [...] patient condition declining or worsening [facility] 04-10-2024 Note Formatting of this n ote is different from the original. Images from the original note were not included. Care Management Progress Note Patient currently still on Heparin Drip, INR 1.6 today.Will convert to oral when appropriate. Pt [facility]- will continue services at discharge. Await treatment plan and clinical progress. dot compliance manager will continue to follow for transitional care needs for discharge planning. Discharge Milestones and Delays Expected date/time: 04/11/2024 Expected discharge disposition: Home or Self Care Discharge Milestones Place discharge order Complete med reconciliation Case mgmt discharge readiness Clinical Stability Diagnostic Workup Quartz Cutter Recommendations Facility Choice Selection Imaging Results Patient [...] Length of Stay (Days): 7 GMLOS: 4 [facility] 04-10-2024 Note Formatting of this n ote is different from the original. Images from the original note were not included. Care Management Progress Note Patient currently still on Heparin Drip, INR 1.6 today.Will convert to oral when appropriate. Pt active with [facility]- will continue services at discharge. Await treatment plan and clinical progress. dot compliance manager will continue to follow for transitional care needs for discharge planning. Discharge Milestones and Delays Expected date/time: 04/11/2024 Expected discharge disposition: Home or Self Care Discharge Milestones Place discharge order Complete med reconciliation Case mgmt discharge readiness Clinical Stability Diagnostic Workup Quartz Cutter Recommendations Facility Choice Selection Imaging Results Patient [...] CNP 04/04/2024 4:04 AM 04/06/2024 SEBASTIAN Herrera SHAMIKA 04/03/2024 11:17 PM Length of Stay (Days): 7 GMLOS: 4 [facility] 04-09-2024 Note Formatting of this n ote is different from the original. Images from the original note were not included. Care Management Progress Note Remains on heparin gtt while transitioning to coumadin. Consult Hemology. Pt active with [facility]- will continue services at discharge. Await treatment plan and clinical progress. dot compliance manager will continue to follow for transitional care needs for discharge planning. Discharge Milestones and Delays Expected date/time: 04/10/2024 Expected discharge disposition: Home or Self Care Discharge Milestones Place discharge order Complete med reconciliation Case mgmt discharge readiness Clinical Stability Diagnostic Workup Quartz Cutter Recommendations Facility Choice Selection Imaging Results Patient [...] vasc consult" 04/06/2024 Bernie Cutler APRN - CLOTH TRIMMER HAND 04/04/2024 4:04 AM 04/06/2024 Bernie Cutler APRN - SHAMIKA 04/03/2024 11:17 PM Length of Stay (Days): 6 GMLOS: 3.1 [facility] 04-09-2024 Note Formatting of this n ote is different from the original. Images from the original note were not included. Care Management Progress Note Remains on heparin gtt while transitioning to coumadin. Consult Hemology. [facility]- will continue services at discharge. Await treatment plan and clinical progress. dot compliance manager will continue to follow for transitional care needs for discharge planning. Discharge Milestones and Delays Expected date/time: 04/10/2024 Expected discharge disposition: Home or Self Care Discharge Milestones Place discharge order Complete med reconciliation Case mgmt discharge readiness Clinical Stability Diagnostic Workup Quartz Cutter Recommendations Facility Choice Selection Imaging Results Patient [...] vasc consult" 04/06/2024 Bernie Cutler APRN - CLOTH TRIMMER HAND 04/04/2024 4:04 AM 04/06/2024 Bernie Cutler APRN - CLOTH TRIMMER HAND 04/03/2024 11:17 PM Length of Stay (Days): 6 GMLOS: 3.1 [facility] 04-08-2024 Plan of care note Progressing [facility] 04-07-2024 Plan of care note The patient [...] comfort level Outcome: Progressing . [facility] 04-07-2024 Hospital Discharge instructions Lolita Sarah MD [...] Rahman RPh - 04/13/2024 1:07 PM EDT [facility] Clinic will monitor your warfarin after you go home. [facility] Phone number: [phone]. Home care nurse will check your INR Monday 04/16 and [facility] will contact you with warfarin dosing [...] José Miguel Castillo/ Fidel Mobile Relation: Child Past Surgical History: [...] detachment Hyperglycemia Osteopenia of left femoral neck assisted current use of anticoagulant therapy Seasonal allergies [...] 8 oz) Mental Status: {HECTOR Patient Mental Status:10174} IV Access: {HECTOR IV Access:58104} Nursing Mobility/ADLs: Walking {MAHESH ADL:::"Independent"} Transfer {MAHESH ADL:::"Independent"} Bathing {MAHESH ADL:::"Independent"} Dressing {MAHESH ADL:::"Independent"} Toileting {MAHESH ADL:::"Independent"} Feeding {MAHESH ADL:::"Independent"} Legal Consultant {MAHESH ADL:::"Independent"} Med Delivery {yes/no:04080} Wound Care Documentation and Therapy: Elimination: Continence: Bowel: {yes/no:} Bladder: {yes/no:} Urinary Catheter: {HECTOR Urinary Catheter:69247} Colostomy/Ileostomy/Ileal Conduit: {YES / NO:} Date of Last BM: Intake/Output Summary (Last 24 hours) at 04/04/2024 1135 Last data filed at 04/03/20242056 Gross per 24 hour Intake 500 ml Output -- Net 500 ml I/O last 3 completed shifts: In: 500 (6.9 mL/kg) [IV Piggyback:500] Out: - (0 mL/kg) Weight: 72.3 kg Safety Concerns: {HECTOR Safety Concerns:25918} Impairments/Disabilities: {HECTOR Impairments/Disabilities:35591} Nutrition Therapy: Current Nutrition Therapy: {HECTOR Diet List:33193} Routes of Feeding: {routes of feedin} Liquids: {liquid consistency:42867} Daily Fluid Restriction: {daily fluid restriction:49147} Last Modified Barium Swallow with Video (Video Swallowing Test): {done not done:09777} Treatments at the Time of Hospital Discharge: Respiratory Treatments: Oxygen Therapy: {Therapy; copd oxygen:25932} Ventilator: {HECTOR Ventilator:78105} Rehab Therapies: {GEN THERAPY DISCIPLINE SCAL:3636812} Weight Bearing Status/Restrictions: {POD WEIGHT BEARIN} Other Medical Equipment (for information only, NOT a DME order): {Assistive Devices DME:11285} Other Treatments: Patient's personal belongings (please select all that are sent with patient): {HECTOR Patient Belongings:88085} RN SIGNATURE: {E-signature:02792} CASE MANAGEMENT/SOCIAL WORK SECTION Inpatient Status Date: Discharging to Facility/ Agency Name: [facility] Address: [address] [place] [address] Dialysis Facility (if applicable) Name: Address: Dialysis Schedule: Phone: Fax: Preschool Director/Windows Support Engineer signature: {E-signature:67324} PHYSICIAN SECTION Name: Mel Pop Prognosis: {Rehab Prognosis:97587} Condition at Discharge: {Patient Condition:40338} Rehab Potential (if transferring to Rehab): {Rehab Prognosis:78402} Recommended Labs or Other Treatments After Discharge: The individual is being admitted to a nursing facility directly from an [facility] or a unit of a [facility] that is not operated by or licensed by [facility] under section 5119.14 or 5160-3-15.1 5 The individual requires the level of services provided by a nursing facility for the condition for which he or she was treated in the hospital and, Physician Certification: I certify the above information and transfer of Mel Pop is necessary for the continuing treatment of the diagnosis listed and that she requires {HECTOR Level of Care:18890} for {greater less than:66700} 30 days. Update Admission H&P: {HECTOR Changes in H&P:05648} PHYSICIAN SIGNATURE: {E-signature:15636} documented in this encounter [facility] 04-07-2024 Nurse Note NO changes to heparin infusion at this time. [facility] 04-06-2024 Note Formatting of this n ote is different from the original. Images from the original note were not included. Care Management Progress Note Pt s/p thrombectomy this am with vascular. Remains on heparin gtt while transitioning to coumadin. Pt active with [facility]- will continue services at discharge. Discharge Milestones [...] vasc consult" 04/06/2024 Bernie Cutler APRN - CLOTH TRIMMER HAND 04/04/2024 4:04 AM 04/06/2024 Bernie Cutler APRN - CLOTH TRIMMER HAND 04/03/2024 11:17 PM Length of Stay (Days): 3 GMLOS: 3.1 [facility] 04-06-2024 Note Formatting of this n ote is different from the original. Images from the original note were not included. Care Management Progress Note Pt s/p thrombectomy this am with vascular. Remains on heparin gtt while transitioning to coumadin. Pt active with [facility]- will continue services at discharge. Discharge Milestones [...] vasc consult" 04/06/2024 Bernie Cutler APRN - CLOTH TRIMMER HAND 04/04/2024 4:04 AM 04/06/2024 Bernie Cutler APRN - CLOTH TRIMMER HAND 04/03/2024 11:17 PM Length of Stay (Days): 3 GMLOS: 3.1 [facility] 04-06-2024 Note Formatting of this n ote might be different from the original. Patient report called to 4N RN and denies any further questions. Patient resting comfortably and no signs of distress. Per resident patient to lay flat for 2 hours and restart heparin GTT at 1215. Transport notified. [facility] 04-06-2024 Note Formatting of this n ote might be different from the original. Patient report called to 4N RN and denies any further questions. Patient resting comfortably and no signs of distress. Per resident patient to lay flat for 2 hours and restart heparin GTT at 1215. Transport notified. [facility] 04-06-2024 Note Formatting of this n ote might be different from the original. SW assisted patient with completion of Health Care Power of Plc Engineer. One copy placed in patient chart, one copy sent to medical records and two copies given to patient. Requested by patient, while at bedside this SW spoke to patient's son via patients phone to explain that HCPOA was being completed by patient. Patients son José Miguel Castillo ([phone]) agreed to be this patients agent on the HCPOA and confirmed understanding. [facility] 04-06-2024 Note Formatting of this n ote might be different from the original. SW assisted patient with completion of Health Care Power of Plc Engineer. One copy placed in patient chart, one copy sent to medical records and two copies given to patient. Requested by patient, while at bedside this SW spoke to patient's son via patients phone to explain that HCPOA was being completed by patient. Patients son José Miguel Castillo ([phone]) agreed to be this patients agent on the HCPOA and confirmed understanding. [facility] 04-06-2024 Note Formatting of this n ote [...] technique was used to place a 5 Slovenian sheath. A Bentson wire was able to be advanced in the inferior vena cava without difficulty. The 5 Slovenian sheath was then upsized to a 16 Slovenian sheath and the penumbra flash suction thrombectomy device was prepared per university librarian's instructions. The patient was also given 5000 units of heparin for systemic anticoagulation at this time. The Penumbra device was then inserted through the 16 Slovenian sheath and a suction thrombectomy was performed [...] device was removed as was the 16 Slovenian sheath and an 0 silk suture was [...] the case. Kristyn Blankenship MD Vascular Surgery [facility] 04-06-2024 Note Formatting of this n ote is different from the original. Date: 04/06/2024 Location: [facility] OR Name: Mel Pop, : 1940, Diagnosis Pre-op Diagnosis * Right leg DVT (HCC) [I82.401] Post-op Diagnosis * Right leg DVT (HCC) [I82.401] Procedures RIGHT LOWER EXTREMITY VENOUS MECHANICAL THROMBECTOMY 53821 - MD PRQ TRANSLUMINAL MECHANICAL THROMBECTOMY VEIN Surgeons * Kristyn Blankenship - Primary Procedure Summary Anesthesia: General ASA: III Estimated Blood Loss: 300 mL Drains: * None in log * Staff: Communications Writer: Negrita Rey RN; Amira Burton RN Scrub [...] antibiotics are not indicated for this procedure. [facility] 04-06-2024 Note Formatting of this n [...] technique was used to place a 5 Slovenian sheath. A Enabled Employmentson wire was able to be advanced in the inferior vena cava without difficulty. The 5 Slovenian sheath was then upsized to a 16 Slovenian sheath and the penumbra flash suction thrombectomy device was prepared per university librarian's instructions. The patient was also given 5000 units of heparin for systemic anticoagulation at this time. The Penumbra device was then inserted through the 16 Slovenian sheath and a suction thrombectomy was performed [...] device was removed as was the 16 Slovenian sheath and an 0 silk suture was [...] the case. Kristyn Blankenship MD Vascular Surgery [facility] 04-06-2024 Note Formatting of this n ote is different from the original. Date: 04/06/2024 Location: [facility] OR Name: Mel Pop, : 1940, Diagnosis Pre-op Diagnosis * Right leg DVT (HCC) [I82.401] Post-op Diagnosis * Right leg DVT (HCC) [I82.401] Procedures RIGHT LOWER EXTREMITY VENOUS MECHANICAL THROMBECTOMY 39017 - MD PRQ TRANSLUMINAL MECHANICAL THROMBECTOMY VEIN Surgeons * Kristyn Blankenship - Primary Procedure Summary Anesthesia: General ASA: III Estimated Blood Loss: 300 mL Drains: * None in log * Staff: Communications Writer: Negrita Rye RN; Amira Burton RN Scrub Person: Linnette [...] antibiotics are not indicated for this procedure. [facility] 04-06-2024 Note Formatting of this n ote might be different from the original. Dr Blankenship at bedside. She called family to update them on procedure time change [facility] 04-06-2024 Note Formatting of this n ote might be different from the original. Dr Blankenship at bedside. She called family to update them on procedure time change [facility] 04-06-[address] Blankenship at bedside. She called family to update them on procedure time change [facility] 04-05-2024 Note Formatting of this n ote is different from the original. Images from the original note were not included. Care Management Progress Note Vascular following with noted plan for possible thrombectomy tomorrow. Remains on heparin gtt while transitioning to coumadin per oncology recommendation. Pt from home alone- indep and [facility]- will return. Discharge Milestones and Delays Expected [...] Length of Stay (Days): 2 GMLOS: 3.1 [facility] 04-05-2024 Note Formatting of this n ote is different from the original. Images from the original note were not included. Care Management Progress Note Vascular following with noted plan for possible thrombectomy tomorrow. Remains on heparin gtt while transitioning to coumadin per oncology recommendation. Pt from home alone- indep and active with [facility]- will return. Discharge Milestones and Delays Expected [...] vasc consult" 04/06/2024 Bernie Cutler APRN - CLOTH TRIMMER HAND 04/04/2024 4:04 AM 04/06/2024 Bernie Cutler APRN - CLOTH TRIMMER HAND 04/03/2024 11:17 PM Length of Stay (Days): 2 GMLOS: 3.1 [facility] 04-05-2024 Plan of care note The patient is Moderately Stable - Low risk of patient condition declining or worsening The patient's goals for the shift include met The clinical goals for the shift include met [facility] 04-04-2024 Consult note Formatting of th is note is different from the original. Images from the original note were not included. [facility] Hematology Oncology Inpatient Consultation [facility] Mel Pop : 1940(83 y.o.) Date: [...] afib, hypertension, and GERD who presented to [facility] for right lower extremity pain. Reports [...] trifurcation vessels. Vascular surgery recommended transfer to [facility]. PVR and BLE US results pending however [...] called her listed contacts (her friend and [id number]-yzx however they do not manage her pill [...] eliquis. I have left a voicemail with [facility] pharmacy in [place] to see if the Eliquis is being [...] min Stress: No Stress Concern Present (04/04/2024) [place] [employer] - Occupational Stress Questionnaire Feeling of Stress : Not at all Social Connections: Moderately Isolated (04/04/2024) Social Connection and Isolation Panel [NHANES] Frequency of Communication with Friends and Family: More than three times a week Frequency of Social Gatherings with Friends and Family: More than three times a week Attends Islam Services: 1 to 4 times per year [...] 04/03/2024 [facility] 1940 [id number] Exam Date/Time: 04/03/2024 21:14 Procedure: CTA AORTA [...] 04/03/2024 Patient Name: MEL POP : 1940 [facility]#: [id number] Exam Date/Time: 04/03/2024 21:06 Procedure: CT HEAD [...] completing clinical documentation as well as with [id number] patient care, performing a medically appropriate examination, counseling / educating the patient/family/caregiver, and ordering medications, tests, or procedures. Electronically signed by Anthony Yee APRN - CLOTH TRIMMER HAND Attending Attestation Note: I have personally performed [...] well as answering questions. Andre Patel MD [facility] Phone: 04-04-2024 Consult note Formatting of th is note is different from the original. Images from the original note were not included. [facility] Hematology Oncology Inpatient Consultation [facility] Mel Pop : 1940(83 y.o.) Date: [...] afib, hypertension, and GERD who presented to [facility] for right lower extremity pain. Reports [...] trifurcation vessels. Vascular surgery recommended transfer to [facility]. PVR and BLE US results pending however [...] called her listed contacts (her friend and [id number]-[id number] however they do not manage her pill [...] eliquis. I have left a voicemail with [facility] pharmacy in [place] to see if the Eliquis is being [...] min Stress: No Stress Concern Present (04/04/2024) [place] [employer] - Occupational Stress Questionnaire Feeling of Stress : Not at all Social Connections: Moderately Isolated (04/04/2024) Social Connection and Isolation Panel [NHANES] Frequency of Communication with Friends and Family: More than three times a week Frequency of Social Gatherings with Friends and Family: More than three times a week Attends Islam Services: 1 to 4 times per year [...] 04/03/2024 [facility] 1940 [id number] Exam Date/Time: 04/03/2024 21:14 Procedure: CTA AORTA [...] 04/03/2024 Patient Name: MEL POP : 1940 [facility]#: [id number] Exam Date/Time: 04/03/2024 21:06 Procedure: CT HEAD [...] completing clinical documentation as well as with [id number] patient care, performing a medically appropriate examination, counseling / educating the patient/family/caregiver, and ordering medications, tests, or procedures. 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 HYSTERECTOMY ORTHOPEDIC SURGERY Current Medications: heparin, 5-30 Units/kg/hr, Last Rate: 18 Units/kg/hr (04/04/24 040) sodium chloride, 125 mL/hr, Last Rate: 125 mL/hr (04/03/241918) PRN medications: acetaminophen OR acetaminophen, albuterol, heparin, [...] min Stress: No Stress Concern Present (04/04/2024) [place] [employer] - Occupational Stress Questionnaire Feeling of Stress : Not at all Social Connections: Moderately Isolated (04/04/2024) Social Connection and Isolation Panel [NHANES] Frequency of Communication with Friends and Family: More than three times a week Frequency of Social Gatherings with Friends and Family: More than three times a week Attends Islam Services: 1 to 4 times per year [...] TESTING: [facility] 1940 [id number] Exam Date/Time: 04/03/2024 21:14 Procedure: CTA AORTA [...] evidence of phlegmasia. Heparin gtt initiated at [facility] prior to transfer and continued here. She notes missed doses of her Eliquis. Recommend compression and elevation of the right lower extremity. Can consider mechanical thrombectomy however given patient's age, this may be more risk than of benefit. Will continue to monitor for symptom improvement on anticoagulation alone. documented in this encounter [facility] 04-04-2024 Note Formatting of this n ote might be different from the original. Care Managment Initial Assessment Date: 04/04/2024 Patient Name: Mel Pop : 1940 Patient Information Source of Information: Patient Cognition/Language: WFL - Within Functional Limits Permission given to speak with patient retail wireless sales representative/caregiver as indicated: Confirmation of Payer with patient/family: Yes Payer Name: humana : No Confirmation of Primary Care Physician: Confirmed PCP Name: jared evans Seen in last 2 years?: Yes Primary Caregiver: Self If assistance needed, confirmed caregiver ready, willing and able to care for patient at discharge: Confirmed with: pt tanja Living Arrangements Current Residence: (mobile home) Number [...] Transportation/Shopping: Assistance Provider Transportation/Shopping Assistance Provider Name: friends Transportation Mode: Car Needs Assistance with Transportation at Discharge: No Meal Preparation: Independent Laundry/Cleaning: Independent Finances/Bill Paying: Independent Communication: Independent Types of Care Services/Equipment Utilized Care Services: Skilled Home Health Services Care Services Provider Name: inna [facility] Dialysis Type: NA Durable Medical Equipment: Cane, [...] home alone and indep. Pt active with [facility]- liaison following for continued services. Pt uses walker/cane at baseline. Pt has insurance, PCP and able to obtain meds. Pt's friends help with transportation. No needs antic at discharge. Virginia Rehman RN [facility] 04-04-2024 Note Formatting of this n ote might be different from the original. Care Managment Initial Assessment Date: 04/04/2024 Patient Name: Mel Pop : 1940 Patient Information Source of Information: Patient Cognition/Language: WFL - Within Functional Limits Permission given to speak with patient retail wireless sales representative/caregiver as indicated: Confirmation of Payer with patient/family: Yes Payer Name: nadege [place]: No Confirmation of Primary Care Physician: Confirmed [...] home alone and indep. [facility]ison following for continued services. Pt uses walker/cane at baseline. Pt has insurance, PCP and able to obtain meds. Pt's friends help with transportation. No needs antic at discharge. Virginia Rehman RN [facility] 04-04-2024 Note Formatting of this n ote is different from the original. Start PACC Note Home Health Referral Educated patient on Home Care and services available. Patient offered choice of available HHC and agreeable to SN/PT services with [facility]. Care Types: [...] is noted as yes - consider a TANK BOTTOM ASSEMBLER evaluation once the patient returns home. [place] PATIENT REGISTRATION INFORMATION Order Information Order Signing Physician: Robert Vigil MD Service Ordered RN ?: Yes Service Ordered PT ?: Yes Service Ordered OT ?: No Service Ordered ST ?: No Service Ordered TANK BOTTOM ASSEMBLER?:No Service Ordered ADMINISTRATIVE SPECIALIST?: No Following Physician: Jared Evans MD Following Physician Overseeing Physician: Jared Evans MD (Required for Residents only) Agreeable to Follow? Yes Date/Time of Call 04/04/24 11:36 AM, Spoke with: Patient is a DEB. Care Coordination Same Day SOC?: No Primary Care Physician: Jared Evans MD Primary Care Physician Primary Care Physician Address: [address] [place] [address] / [facility] [address] Visit Instructions: N/A Service Discharge Location Type: Home with Home Care Service Facility Name: N/A Service Floor Facility: N/A Service Room No: N/A Demographics Patient Last Name: Jose Alberto Patient First Name: Mel Language/Communication Barrier: none Service Address: [facility] [address] Service City: [place] Service ST: [place] Service ZIP: [address] Service Other phone numbers: Telephone Information: Emergency Contact: Extended Emergency Contact Information Primary Emergency Contact: Damaris Villafana Mobile Relation: Friend Secondary Emergency Contact: JoséM iguel Castillo/ Fidel Mobile Relation: Child Admission Information Admit Date: 04/03/2024 Patient status at discharge: Inpatient Admitting Diagnosis: Right leg pain [M79.604] Peripheral arterial disease (HCC) [I73.9] Right leg weakness [R29.898] Atrial fibrillation, unspecified type (HCC) [I48.91] Caregiver Information Caregiver First Name: na Caregiver Last Name: na Caregiver Relationship to Patient na Caregiver Phone Number: na Caregiver Notes: N/A [employer] List No END PATIENT REGISTRATION INFORMATION Pt [...] intervention. Discharge Date: pending Referral Source-PACC: (Hospital/Unit): [facility] / N4-461/N4-461 B End PACC Note [facility] 04-04-2024 Note Formatting of this n ote is different from the original. Start PACC Note Home Health Referral Educated patient on Home Care and services available. Patient offered choice of available HHC and agreeable to SN/PT services with [facility] at [facility] - Home Care. Care Types: [...] is noted as yes - consider a TANK BOTTOM ASSEMBLER evaluation once the patient returns home. START PATIENT REGISTRATION INFORMATION Order Information Order Signing Physician: Robert Vigil MD Service Ordered RN ?: Yes Service Ordered PT ?: Yes Service Ordered OT ?: No Service Ordered ST ?: No Service Ordered TANK BOTTOM ASSEMBLER?:No Service Ordered ADMINISTRATIVE SPECIALIST?: No Following Physician: Jared Evans MD Following Physician Overseeing Physician: Jared Evans MD (Required for Residents only) Agreeable to Follow? Yes Date/Time of Call 04/04/24 11:36 AM, Spoke with: Patient is a DEB. Care Coordination Same Day SOC?: No Primary Care Physician: Jared Evans MD Primary Care Physician Primary Care Physician Address: [address] [place] [address] Visit Instructions: N/A Service Discharge Location Type: Home with Home Care Service Facility Name: N/A Service Floor Facility: N/A Service Room No: N/A Demographics Patient Last Name: Jose Alberto Patient First Name: Mel Language/Communication Barrier: none Service Address: [id number] [place] [address] [address] Service City: [place] Service ST: [place] Service ZIP: [address] Service Other phone numbers: Telephone Information: Emergency [...] Caregiver Phone Number: na Caregiver Notes: N/A [employer] List No END PATIENT REGISTRATION INFORMATION Pt [...] intervention. Discharge Date: pending Referral Source-PACC: (Hospital/Unit): [facility] / N4-461/N4-461 B End PACC Note [facility] 04-04-2024 Plan of care note The patient is Moderately Stable - Low risk of patient condition declining or worsening The patient's goals for the shift include safety The clinical goals for the shift include therapeutic aptt T [facility] 04-04-2024 Note Formatting of this n ote might be different from the original. Patient is currently active with [facility]. The patients current certification period will on 05/18/24. The patient is currently receiving PT services through the agency. Sanitation Truck [employer]er to continue to follow. [facility] 04-04-2024 Note Formatting of this n ote might be different from the original. Patient is currently active with [facility]. The patients current certification period will on 05/18/24. The patient is currently receiving PT services through the agency. [employer]itation [employer] to continue to follow. 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 HYSTERECTOMY ORTHOPEDIC SURGERY Current Medications: heparin, 5-30 Units/kg/hr, Last Rate: 18 Units/kg/hr (04/04/24 040) sodium chloride, 125 mL/hr, Last Rate: 125 mL/hr (04/03/241918) PRN medications: acetaminophen OR acetaminophen, albuterol, heparin, [...] min Stress: No Stress Concern Present (04/04/2024) [place] [employer] - Occupational Stress Questionnaire Feeling of Stress : Not at all Social Connections: Moderately Isolated (04/04/2024) Social Connection and Isolation Panel [NHANES] Frequency of Communication with Friends and Family: More than three times a week Frequency of Social Gatherings with Friends and Family: More than three times a week Attends Islam Services: 1 to 4 times per year [...] TESTING: [facility] 1940 [id number] Exam Date/Time: 04/03/2024 21:14 Procedure: CTA AORTA [...] evidence of phlegmasia. Heparin gtt initiated at [facility] prior to transfer and continued here. She notes missed doses of her Eliquis. Recommend compression and elevation of the right lower extremity. Can consider mechanical thrombectomy however given patient's age, this may be more risk than of benefit. Will continue to monitor for symptom improvement on anticoagulation alone. [facility] 04-04-2024 Note Formatting of this [...] - DO NOT do CPR, intubation] [_] [DNR-BUSINESS QUALITY ASSURANCE ANALYST - Comfort care only] [_] DNR form [...] with patient and/or family/surrogate. Pratibha Avelar DO [facility] 04/04/2024, 5:40 AM [facility] 04-04-2024 Note Formatting of this n ote [...] - DO NOT do CPR, intubation] [_] [DNR-BUSINESS QUALITY ASSURANCE ANALYST - Comfort care only] [_] DNR form [...] patient and/or family/surrogate. Pratibha Avelar DO [facility] 04/04/2024, 5:40 AM [facility] 04-04-2024 History and physical note Attending History [...] min Stress: No Stress Concern Present (04/04/2024) [place] [employer] - Occupational Stress Questionnaire Feeling of Stress : Not at all Social Connections: Moderately Isolated (04/04/2024) Social Connection and Isolation Panel [NHANES] Frequency of Communication with Friends and Family: More than three times a week Frequency of Social Gatherings with Friends and Family: More than three times a week Attends Islam Services: 1 to 4 times per year [...] Villafana Mobile Relation: Friend Secondary Emergency Contact: CastilloJosé Miguel/ Fidel Mobile Relation: Child Pratibha Avelar DO Division of Hospitalist Medicine Inpatient Medical Services/[facility] Work Phone: 04-04-2024 Note [facility] 04-04-2024 History and physical note Attending History [...] min Stress: No Stress Concern Present (04/04/2024) [place] [employer] - Occupational Stress Questionnaire Feeling of Stress : Not at all Social Connections: Moderately Isolated (04/04/2024) Social Connection and Isolation Panel [NHANES] Frequency of Communication with Friends and Family: More than three times a week Frequency of Social Gatherings with Friends and Family: More than three times a week Attends Islam Services: 1 to 4 times per year [...] Extended Emergency Contact Information Primary Emergency Contact: BroderickDamaris Mobile Relation: Friend Secondary Emergency Contact: José Miguel Castillo/ Fidel Mobile Relation: Child Pratibha Avelar DO Division of Hospitalist Medicine Inpatient Medical Services/[facility] documented in this encounter [facility] 04-04-2024 Plan of care note The patient is Moderately Stable - Low risk of patient condition declining or worsening The patient's goals for the shift include met The clinical goals for the shift include met Over the shift, the patient did not make progress toward the following goals. Barriers to progression include . Recommendations to address these barriers include . [facility] 04-04-2024 Emergency department Note Report to Delia Bond RN 04/04/24341 [facility] 04-04-2024 Emergency department Note Report to Delia Bond RN 04/04/24341 Multiple attempts made to call report to [facility] with phone number provided by telephone operator receptionist, but when phone number dialed RN only gets busy tone. Will try again. Shannon Bond RN 04/04/24 033 [facility] at bedside to transport pt to [facility]. Paperwork with EMS Shannon Bond RN 04/04/24313 EMERGENCY DEPARTMENT ENCOUNTER Pt Name: Mel Pop Birthdate 1940 Date of evaluation: 04/03/2024 ED Provider: Bernie Cutler APRN - CLOTH TRIMMER HAND This patient was seen in conjunction with [...] Resource Strain: Low Risk (05/18/2022) Received from [facility] Overall Financial Resource Strain (CARDIA) Difficulty of Paying Living Expenses: Not hard at all Food Insecurity: No Food Insecurity (05/18/2022) Received from [facility] Hunger Vital Sign Worried About Running Out of Food in the Last Year: Never true Ran Out of Food in the Last Year: Never true Transportation Needs: No Transportation Needs (05/18/2022) Received from [facility] PRAPARE - Transportation Lack of Transportation (Medical): No Lack of Transportation (Non-Medical): No Housing Stability: Unknown (05/18/2022) Received from [facility] Housing Stability Vital Sign Unable to [...] DEPARTMENT COURSE and DIFFERENTIAL DIAGNOSIS/MDM: Vitals: Vitals: 04/03/24203204/03/24204504/03/24220204/03/242203 BP: (!) 142/63 (!) 142/63 (!) 151/86 [...] 82. I also reviewed external records from [facility]. I discussed their care with [facility]. Consideration for escalation of care with: Admission/observation discussed case with Dr. 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 in case she needs an emergent angio.. [...] SEBASTIAN Herrera CNP 04/03/242237 Emergency Department Encounter [facility] Patient: Mel Pop : [...] consulted recommends heparin drip and transferred to [facility], 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 Patient admitted to [facility]. Patient in agreement with plan. Diagnostics interpreted [...] [facility] Winifred Cornell DO 04/06/24 1625 Pt presents via EMS from home. States [...] or other complaints. documented in this encounter [facility] 04-04-2024 Emergency department Note Multiple attempts made to call report to [facility] with phone number provided by telephone operator receptionist, but when phone number dialed RN only gets busy tone. Will try again. Shannon Bond RN 04/04/24 0332 [facility] 04-04-2024 Emergency department Note [facility] at bedside to transport pt to [facility]. Paperwork with EMS Shannon Bond RN 04/04/244 [facility] 04-03-2024 Emergency department Triage note Pt presents [...] upon arrival. No SOB or other complaints. [facility] 04-03-2024 Physician Emergency department Note EMERGENCY DEPARTMENT ENCOUNTER Pt Name: Mel Pop Birthdate 1940 Date of evaluation: 04/03/2024 ED Provider: SEBASTIAN Herrera CNP This patient was seen in conjunction with [...] Resource Strain: Low Risk (05/18/2022) Received from [facility] Overall Financial Resource Strain (CARDIA) Difficulty of Paying Living Expenses: Not hard at all Food Insecurity: No Food Insecurity (05/18/2022) Received from [facility] Hunger Vital Sign Worried About Running Out of Food in the Last Year: Never true Ran Out of Food in the Last Year: Never true Transportation Needs: No Transportation Needs (05/18/2022) Received from [facility] PRAPARE - Transportation Lack of Transportation (Medical): No Lack of Transportation (Non-Medical): No Housing Stability: Unknown (05/18/2022) Received from [facility] Housing Stability Vital Sign Unable to [...] [facility] (Per Emergency Physician): Interpretation per the [...] extremities will heparinize or admit her to [facility] in case she needs an emergent angio.. [...] signed) Emergency Medicine Provider SEBASTIAN Herrera CNP 04/03/242 [facility] 04-03-2024 Physician Emergency department Note Emergency Department Encounter [facility] Patient: Mel Pop : [...] consulted recommends heparin drip and transferred to [facility], 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 Patient admitted to [facility]. Patient in agreement with plan. Diagnostics interpreted [...] [facility] Winifred Cornell DO 04/06/24 1628 [facility] Work Phone: 07-27-2023 History of Present illness Narrative [facility] [address] [place] [address] [address] [facility] [address] Dept: [phone] Dept Mel Solizerd 1940 [id number] 07/27/2023 HISTORY OF PRESENT ILLNESS: Mel is [...] improve. Electronically signed by Ming Weinberg MD [facility] Department of Orthopedic surgery 07/27/2023 5:21 PM Voice recognition was used for portions of this note and although it was reviewed prior to signing some incorrect words or phrases could be present. documented in this encounter [facility] 07-06-2022 Miscellaneous Notes PATIENT INFORMATION Record ID: [id number] Patient Name: Mel [facility]: [facility] [place]: [facility] Attending: Iwona Chu Center: Internal Medicine and Geriatrics INSTRUCTIONS All Clear SN to remind patient of next upcoming appointment date, time, location All Clear All Clear All Clear SURVEY INFORMATION Medical/Nurse Cloth Washer Back Tender: Inés Tubbs 1. Your discharge instructions are [...] (Standard Question) No documented in this encounter [facility] 06-29-2022 Note HNO ID: [id number] Author: Joana Tolbert [facility] Service: Pharmacy Author Type: Pharmacist Type: Plan [...] Post discharge follow up instruction Joana Tolbert RPh June 29, 2022 3:32 PM Medication List [...] Your Medications These medications were sent to [facility] [address] [place] [address] Hours: Tuesday-Tuesday, 8am-4:30pm apixaban 5 mg (74 tabs) ascorbic acid (vitamin C) 500 mg tablet bacitracin 500 unit/gram ointment guaiFENesin 600 mg 12 hr tablet HYDROcodone-acetaminophen 5-325 mg per tablet lactobacillus rhamnosus 10 billion cell capsule metoprolol tartrate (short acting) [address] 40 mg tablet sucralfate 1 gram tablet [facility] 06-29-2022 Note HNO ID: [id number] Author: Kassidy Mejia RN Service: Care Management Author Type: Registered Nurse Type: Care Mgt Progress Note Filed: 06/29/2022 12:39 PM Note Text: CARE MANAGEMENT DISCHARGE NOTE SERVICE DATE: 06/29/2022 SERVICE TIME: 12:38 PM LOS: 13 days Admission Date: 06/16/2022 DISCHARGE ARRANGEMENT (list agency and phone number) Discharge Arrangement: Home with Home Health Provider Name: Arpita Polo/Madelaine CAREGIVER ASSESSMENT: Caregiver is ready, willing and able to meet the patient's needs as recommended by the inter-professional team:: Yes Patient's transition needs and plan for meeting these needs: [facility] HANDOFF COMMUNICATION: TRANSPORTATION ARRANGEMENTS: Transportation Arrangements: Car ADDITIONAL CONTACT RESOURCES: [facility] was able to approve and deliver home O2. SIGNATURE: Kassidy Mejia RN PATIENT NAME: Mel Castillo DATE: June 29, 2022 TIME: 12:38 PM PAGER/CONTACT #: [phone] [facility] 06-28-2022 Note HNO ID: [id number] Author: Iwona Chu DO Service: Hospital Medicine Author Type: Physician Type: Progress Notes Filed: 06/28/2022 8:58 PM Note Text: Needs O2 arranged before discharge [facility] 06-28-2022 Note HNO ID: [id number] Author: Irene Han RN Service: Care Management Author Type: Registered Nurse Type: Care Mgt Progress Note Filed: 06/28/2022 2:39 PM Note Text: CARE MANAGEMENT PROGRESS NOTE SERVICE DATE: 06/28/2022 SERVICE TIME: 8 LOS: 12 days Needs Prior to Discharge: To Be Determined;Home Care Order;Equipment Delivery;Discharge Prescriptions;Pharmacy Bedside Delivery;Other: See Comment;Oxygen Set-up;Procedure;Patient/Family (medical clearance) IMM Follow Up Copy Given: Yes Copy given to:: Patient Method: In Person (verbalized understanding) Referral sent to [facility] for home going O2. Awaiting ambulatory pox to be completed. Plan to return home with family support and HHC through [facility]. Family to transport. Will need home O2/HC orders, prior to dc. IMM completed. UPDATE @ 7727: [facility] is outside of the patient's service area. Additional DMR referrals sent to [facility] and [facility]; awaiting response. Will need accepting DMR provider and home O2 delivery, prior to discharge. Oxygen/HC orders in Epic. SIGNATURE: Irene Han RN PATIENT NAME: Mel Castillo DATE: June 28, 2022 TIME: 1:58 PM PAGER/CONTACT #: [phone] [facility] 06-28-2022 Note HNO ID: [id number] Author: Iwona Chu DO Service: Hospital Medicine [...] micropuncture needle and serially upsized to a 5-Slovenian sheath. A venogram was then performed, which [...] time, the sheath was upsized to an 8-Slovenian sheath. An intravascular ultrasound was performed. This [...] GI (more content not included)... [facility] 06-27-2022 Note HNO ID: [id number] Author: Iwona Chu DO Service: Hospital Medicine [...] micropuncture needle and serially upsized to a 5-Slovenian sheath. A venogram was then performed, which [...] time, the sheath was upsized to an 8-Slovenian sheath. An intravascular ultrasound was performed. This [...] hh (more content not included)... [facility] 06-26-2022 Note HNO ID: [id number] Author: Iwona Chu DO Service: Hospital Medicine [...] micropuncture needle and serially upsized to a 5-Slovenian sheath. A venogram was then performed, which [...] time, the sheath was upsized to an 8-Slovenian sheath. An intravascular ultrasound was performed. This [...] subacute/SNF (more content not included)... [facility] 06-25-2022 Note HNO ID: [id number] Author: Heron Ayers MD Service: Hospital Medicine [...] 5 mg ORAL 2 TIMES DAILY Ordered 06/24/221812 -- 06/25/22 0900 apixaban 10 mg tab(s) (ELIQUIS) (apixaban tab(s) (ELIQUIS)) See Hyperspace for full Linked Orders Report. 10 mg ORAL 2 TIMES DAILY Given, 06/25 84106/24/22181207/02/2259 06/16/221944 vte current anticoag therapy ([place], [place]) 06/16/221944 activity - mobilize patient ([place]) VTE Prophylaxis: VTE prophylaxis appropriate Disposition: Home Plan of care discussed with: Provider, RN, Patient SIGNATURE: Heron Ayers MD PATIENT NAME: Mel Castillo DATE: June 25, 2022 TIME: 12:03 PM etx [id number] [facility] 06-25-2022 Note HNO ID: [id number] Author: Kassidy Mejia RN Service: Care Management [...] 25, 2022 TIME: 11:30 AM PAGER/CONTACT #: [phone] [facility] 06-24-2022 Note HNO ID: [id number] Author: Richie Yi MD Service: General Internal Medicine Author Type: Physician Type: Progress Notes Filed: 06/24/2022 6:34 PM Note Text: DEPARTMENT OF HOSPITAL MEDICINE PROGRESS NOTE SERVICE DATE: 06/23/2022 SERVICE TIME: 7:19 PM Hospital Medicine/Primary Attending: Richie Yi MD NIGHT AND WEEKEND COVERAGE: POWER COVERAGE: After 7pm, please call cross cover pager #[phone] Subjective Patient was seen today. She is [...] 1 day Drain Duration External Collection Device 06/16/22 2331 7 days Reviewed lines and needs [...] ORAL 2 TIMES DAILY Ordered 06/24/22 1813 07/02/22 0859 06/24/22 1730 heparin iv infusion 25,000 units in NaCl 0.45% 250 mL STANDARD NOMOGRAM (Heparin Infusion + Bolus for Subtherapeutic PTTAC) 0-30 mL/hr See Hyperspace for full Linked Orders Report. 0-3,000 Units/hr INTRAVENOUS CONTINUOUS Rate Verify, 06/24 1730 06/24/22 1729 06/25/22 0300 06/16/221944 vte [place] anticoag therapy [place] 06/16/221944 activity - mobilize patient ([place]) VTE Prophylaxis: VTE prophylaxis appropriate Disposition: To be determined Plan of care discussed with: Provider, RN, Patient SIGNATURE: Richie Yi MD PATIENT NAME: Mel Castillo DATE: June 23, 2022 TIME: 7:19 PM etx [id number] [facility] 06-24-2022 Note HNO ID: [id number] Author: SHAQUILLE Kaye Service: Care Management Author Type: Windows Support Engineer Type: Care Mgt Progress Note Filed: 06/24/2022 1:04 PM Note Text: CARE MANAGEMENT PROGRESS NOTE SERVICE DATE: 06/24/2022 SERVICE TIME: 1:02 PM LOS: 8 days Needs Prior to Discharge: To Be Determined;Home Care Order;Oxygen Set-up Chart reviewed. SW spoke with attending, pt is not ready for discharge yet. Pt now declining SNF. [facility] has accepted pt for HHC. Pt will need HHC orders. Pt may also need home O2, pt will need ambulatory pulse ox and script. Family may be able to transport. SIGNATURE: SHAQUILLE Kaye PATIENT NAME: Mel Castillo DATE: June 24, 2022 TIME: 1:02 PM PAGER/CONTACT #: [phone] [facility] 06-23-2022 Note HNO ID: [id number] Author: Richie Yi MD Service: General Internal Medicine Author Type: Physician Type: Progress Notes Filed: 06/23/2022 7:28 PM Note Text: DEPARTMENT OF HOSPITAL MEDICINE PROGRESS NOTE SERVICE DATE: 06/23/2022 SERVICE TIME: 7:19 PM Hospital Medicine/Primary Attending: Richie Yi MD NIGHT AND WEEKEND COVERAGE: [place] COVERAGE: After 7pm, please call cross cover pager #[phone] Subjective Patient was seen today. She is [...] 1028 -- 06/16/221944 vte current anticoag therapy ([place], [place]) 06/16/221944 activity - mobilize patient ([place]) VTE Prophylaxis: VTE prophylaxis appropriate Disposition: To be determined Plan of care discussed with: Provider, RN, Patient SIGNATURE: Richie Yi MD PATIENT NAME: Mel Castillo DATE: June 23, 2022 TIME: 7:19 PM etx [id number] [facility] 06-23-2022 Note HNO ID: [id number] Author: Kassidy Mejia RN Service: Care Management Author Type: Registered Nurse Type: Care Mgt Progress Note Filed: 06/23/2022 4:00 PM Note Text: CARE MANAGEMENT PROGRESS NOTE SERVICE DATE: 06/23/2022 SERVICE TIME: 3:55 PM LOS: 7 days Spoke with pt at the bedside. Discussed SNF placement. Auth obtained for [facility]- pt would be responsible for copay 50% of cost per day for days 1-100. Pt refusing SNF at this time. Pt would like to d/c home with her son and dtr-in-law to ([address] [place] [address]). Pt would agreeable to [facility]- Referrals sent. Pt may need home O2- await ambulatory pulse ox. Family likely able to transport at d/c. CM to follow. SIGNATURE: Kassidy Mejia RN PATIENT NAME: Mel Castillo DATE: June 23, 2022 TIME: 3:53 PM PAGER/CONTACT #: [phone] [facility] 06-22-2022 Note HNO ID: [id number] Author: Dwayne Zaidi MD Service: Hospital Medicine Author Type: Physician Type: Progress Notes Filed: 06/22/2022 6:47 PM Note Text: DEPARTMENT OF HOSPITAL MEDICINE PROGRESS NOTE SERVICE DATE: 06/22/2022 SERVICE TIME: 6:42 PM Hospital Medicine/Primary Attending: Dwayne Zaidi MD NIGHT AND WEEKEND COVERAGE: After 7pm please page [phone] CHIEF COMPLAINT: Follow-up for acute left lower [...] bowel sounds normally heard, no mass palpable DESKTOP SUPPORT ASSOCIATE- cranial nerves 2 to 12 grossly intact, [...] tab(s) (PROTONIX) 40 mg ORAL BID AC (06) [START ON 06/23/2022] amoxicillin-clavulanic acid 875 mg [...] interval not displayed. BMP: Recent Labs 06/22/22 0609 06/20/22 0552 06/19/22 0513 06/18/22 0416 06/17/22 0510 06/16/22 0341 GLUC 95 92 [...] -- (more content not included)... [facility] 06-22-2022 Note HNO ID: [id number] Author: Kassidy Mejia RN Service: Care Management Author Type: Registered Nurse Type: Care Mgt Progress Note Filed: 06/22/2022 10:15 AM Note Text: CARE MANAGEMENT PROGRESS NOTE SERVICE DATE: 06/22/2022 SERVICE TIME: 10:15 AM LOS: 6 days IMM Follow Up Copy Given: Yes Copy given to:: Patient Method: In Person (verbal) [facility] is able to accept pt. Precert tasked. Pt will need cot for transport. CM to follow. SIGNATURE: Kassidy Mejia RN PATIENT NAME: Mel Castillo DATE: June 22, 2022 TIME: 10:14 AM PAGER/CONTACT #: [phone] [facility] 06-21-2022 Note HNO ID: [id number] Author: Dwayne Zaidi MD Service: Hospital Medicine Author Type: Physician Type: Progress Notes Filed: 06/21/2022 4:10 PM Note Text: DEPARTMENT OF HOSPITAL MEDICINE PROGRESS NOTE SERVICE DATE: 06/21/2022 SERVICE TIME: 4:04 PM Hospital Medicine/Primary Attending: Dwayne Zaidi MD NIGHT AND WEEKEND COVERAGE: After 7pm please page [phone] CHIEF COMPLAINT: Follow-up for acute left lower [...] bowel sounds normally heard, no mass palpable DESKTOP SUPPORT ASSOCIATE- cranial nerves 2 to 12 grossly intact, [...] 0552 06/19/22 0513 06/18/22 0416 06/17/22 0510 06/16/22340 ALB -- -- -- -- 3.2* TPROT [...] Has (more content not included)... [facility] 06-21-2022 Note HNO ID: [id number] Author: Kassidy Mejia RN Service: Care Management Author Type: Registered Nurse Type: Care Mgt Progress Note Filed: 06/21/2022 3:44 PM Note Text: CARE MANAGEMENT PROGRESS NOTE SERVICE DATE: 06/21/2022 SERVICE TIME: 3:41 PM LOS: 5 days Spoke with pt at the bedside. Pt states that she lives at home alone. PT/OT rec SNF. Pt would like [facility]- referral sent. Await acceptance. Pt will need precert when medically stable. Pt will need cot for transport. Cm to follow. SIGNATURE: Kassidy Mejia RN PATIENT NAME: Mel Castillo DATE: June 21, 2022 TIME: 3:41 PM PAGER/CONTACT #: [phone] [facility] 06-21-2022 Note HNO ID: [id number] Author: Primo Dodd APRN.SHAMIKA Service: Gastroenterology Author [...] evidence (more content not included)... [facility] 06-20-2022 Note HNO ID: [id number] Author: Acacia Hardin DO Service: General Surgery Author Type: Resident Type: Plan of Care Filed: 06/20/2022 1:40 PM Note Text: Plan of Care Dr. 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 Spoke with Dr. Wilson, brickmason for Dr. Rodriguez, and she states these [...] oz) SpO2 97% BMI 26.94 kg/m? Acacia Hardin DO 06/20/2022 1:36 PM [facility] 06-20-2022 Note HNO ID: [id number] Author: Dwayne Zaidi MD Service: Hospital Medicine Author Type: Physician Type: Progress Notes Filed: 06/20/2022 12:39 PM Note Text: DEPARTMENT OF HOSPITAL MEDICINE PROGRESS NOTE SERVICE DATE: 06/20/2022 SERVICE TIME: 12:35 PM Hospital Medicine/Primary Attending: Dwayne Zaidi MD NIGHT AND WEEKEND COVERAGE: After 7pm please page [phone] CHIEF COMPLAINT: Follow-up for acute left lower [...] bowel sounds normally heard, no mass palpable DESKTOP SUPPORT ASSOCIATE- cranial nerves 2 to 12 grossly intact, [...] BMP: Recent Labs 06/20/22 0552 06/19/22 0513 06/18/226 06/17/22 0510 06/16/22 0341 GLUC 92 115* [...] 2.1 2.1 2.4* HEPATIC: Recent Labs 06/16/22 0341 ALKPHOS 111 ALT 20 AST 13 TBILI [...] with heparin by weight. Has previous IVC tahimna (more content not included)... [facility] 06-19-2022 Note HNO ID: [id number] Author: Dwayne Zaidi MD Service: Hospital Medicine Author Type: Physician Type: Progress Notes Filed: 06/19/2022 4:33 PM Note Text: DEPARTMENT OF HOSPITAL MEDICINE PROGRESS NOTE SERVICE DATE: 06/19/2022 SERVICE TIME: 4:29 PM Hospital Medicine/Primary Attending: Dwayne Zaidi MD NIGHT AND WEEKEND COVERAGE: After 7pm please page [phone] CHIEF COMPLAINT: Follow-up for acute left lower [...] bowel sounds normally heard, no mass palpable DESKTOP SUPPORT ASSOCIATE- cranial nerves 2 to 12 grossly intact, [...] interval not displayed. BMP: Recent Labs 06/19/22 0506/18/22 0416 06/17/22 0506/16/22340 GLUC 115* 112* 84 122* NA 133* 133* 137 139 K 4.4 4.4 4.3 4.4 CHLOR 105 102 107* 104 CO2 23 21* 21* 18* ANION 5* 10 9 17 BUN 22* 25* 27* 35* CREAT 0.94 1.17* 0.99* 1.14* CHEM: Recent Labs 06/19/22 0513 06/18/226 06/17/22 0506/16/22340 ALB -- -- -- 3.2* TPROT -- [...] andrew (more content not included)... [facility] 06-18-2022 Note HNO ID: [id number] Author: Emanuel Hull MD Service: General Surgery [...] June 18, 2022 5:39 PM [facility] 06-18-2022 Note HNO ID: [id number] Author: Dwayne Zaidi MD Service: Hospital Medicine Author Type: Physician Type: Progress Notes Filed: 06/18/2022 5:37 PM Note Text: DEPARTMENT OF HOSPITAL MEDICINE PROGRESS NOTE SERVICE DATE: 06/18/2022 SERVICE TIME: 5:35 PM Hospital Medicine/Primary Attending: Dwayne Zaidi MD NIGHT AND WEEKEND COVERAGE: After 7pm please page [phone] CHIEF COMPLAINT: Follow-up for acute left lower [...] bowel sounds normally heard, no mass palpable DESKTOP SUPPORT ASSOCIATE- cranial nerves 2 to 12 grossly intact, [...] today's visit: Lab data: CBC: Recent Labs 12/09/08 41506/17/22 0510 06/16/22 0826 06/16/22 0341 WBC 8.77 [...] 1337 06/17/22 1029 06/17/22 0739 06/17/22 0027 06/16/226 06/16/22 0951 06/16/22 0304 APTT 58.8* 127.7* 48.4* 29.4 125.1* >139.0* 28.5 74.2* < > 21.7* INR -- -- -- -- -- -- -- -- -- 1.1 < > = values in this interval not displayed. BMP: Recent Labs 06/18/2241506/17/22 0510 06/16/22340 GLUC 112* 84 122* NA 133* 137 139 K 4.4 4.3 4.4 CHLOR 102 107* 104 CO2 21* 21* 18* ANION 10 9 17 BUN 25* 27* 35* CREAT 1.17* 0.99* 1.14* CHEM: Recent Labs 06/18/2241506/17/22 0510 06/16/22 034 ALB -- -- 3.2* TPROT -- -- 6.6 CA 8.0* 7.9* 9.1 MG 2.1 2.1 2.4* HEPATIC: Recent Labs 06/16/22340 [...] for (more content not included)... [facility] 06-18-2022 Note HNO ID: [id number] Author: Kassidy Mejia RN Service: Care Management [...] 18, 2022 TIME: 3:46 PM PAGER/CONTACT #: [phone] [facility] 06-17-2022 Note HNO ID: [id number] Author: Eliza Parikh RN Service: Nursing Author Type: Registered Nurse Type: Nursing Progress Note Filed: 06/17/2022 7:24 PM Note Text: Pt to 4200 via bed. Pt tolerated well. [facility] 06-17-2022 Note HNO ID: [id number] Author: Eliza Parikh RN Service: Nursing Author Type: Registered Nurse Type: Nursing Progress Note Filed: 06/17/2022 4:35 PM Note Text: Report to 4200 Jayne FRAGA [facility] 06-17-2022 Note HNO ID: [id number] Author: Efrain Ivey ([employer]) Service: Pharmacy Author Type: Aircraft Assembler Type: Plan of Care Filed: 06/17/2022 2:16 PM Note Text: PHARMACY MEDICATION REVIEW Patient Name: Mel Castillo : 1940 The following medications were updated within the EP TECHNOLOGIST medication list: Medications ADDED to EP TECHNOLOGIST medication list amLODIPine (NORVASC) 10 mg tablet OTHER Yes Yes dexAMETHasone (DECADRON) 4 mg tablet OTHER Yes Yes lisinopril (ZESTRIL, PRINIVIL) 5 mg tablet OTHER Yes Yes RX filled via [facility] and verified with pt. herself Medications CHANGED on EP TECHNOLOGIST medication list na Medications REMOVED from EP TECHNOLOGIST medication list na Additional comments: I was able to talk with the pt. about her home medications. She states she takes the 3 RX medications recorded below. These 3 medications were added to her EP TECHNOLOGIST list. She has finished Paxlovid and a physician stopped Augmentin per pt. interview Required follow up for nursing. Medication history completed by Historian. No nursing follow up required. The below information represents the best possible medication history: Yes Medication history completed by: Aircraft Assembler: Efrain Ivey ([employer]) Source of history: Patient: Reliability of source: Appears reliable, clearly identified: Medication name, Medication dose, Medication route, and Medication frequency and Pharmacy records: Epic e-script [facility] Medication nonadherence identified: No barriers noted Reconciliation completed: No, pharmacist not yet reviewed Patient interested in Bedside Delivery Services or using OP Pharmacy at discharge? No Preferred outpatient pharmacy: [id number] [place] [id number] - [address] [phone] Allergies: Percocet [Oxycodone* Itching Prior to Admission [...] once daily. Facility-Administered Medications: None Efrain Ivey (Director Of Planning) phone [phone] 06/17/2022 [facility] 06-17-2022 Note HNO ID: [id number] Author: Ladan Adame RN Service: Care Management Author Type: Registered Nurse Type: Care Mgt Progress Note Filed: 06/17/2022 12:38 PM Note Text: CARE MANAGEMENT PROGRESS NOTE SERVICE DATE: 06/17/2022 SERVICE TIME: 12:37 PM LOS: 1 day Needs Prior to Discharge: To Be Determined Epic notes reviewed. Patient in isolation for Covid. TC made to her friend/CHERYL Damaris. Left a VM. Awaiting a return call. CM to continue to follow. SIGNATURE: Ladan Adame RN PATIENT NAME: Mel Castillo DATE: June 17, 2022 TIME: 12:37 PM PAGER/CONTACT #: [phone] [facility] 06-17-2022 Note HNO ID: [id number] Author: Eliza Parikh RN Service: Nursing Author Type: Registered Nurse Type: Nursing Progress Note Filed: 06/17/2022 10:40 AM Note Text: Echo at bedside [facility] 06-16-2022 Note HNO ID: [id number] Author: Cirilo Alaniz APRN.CRNA Service: Anesthesiology Author Type: Nurse Expansion Envelope Maker Hand Type: Anesthesia Procedure Notes Filed: 06/16/2022 5:04 PM Note Text: ANESTHESIOLOGY PROCEDURE NOTE Airway General Information Procedure Start Time/Medication Administration: 06/16/2022 4:29 PM Patient location during procedure: OR Timeout Performed Pre-procedure: timeout performed Consent Obtained: Yes Patient identity confirmed: arm band and patient Staffing SCHOOL BUS TECHNICIAN: Cirilo Alaniz APRN.SCHOOL BUS TECHNICIAN Indications and Patient Condition Indications for airway management: anesthesia Preoxygenated: yes anesthesia circuit Method: asleep Difficult Mask: No Final Airway Details Final airway type: endotracheal airway Final Endotracheal Airway: ETT Cuffed: yes Successful intubation technique: video laryngoscopy Devices used: [employer] Endotracheal tube insertion site: oral Blade: Kit Blade size: #3 ETT size (mm): 7.0 Measured from: lips Measurement (cm): 21 Placement verified by: chest auscultation and capnometry Cormack-Lehane Classification: grade I - full view of glottis Number of attempts at approach: 1 Airway not difficult SIGNATURE: Cirilo Alaniz APRN.CRNA PATIENT NAME: Mel Castillo DATE: June 16, 2022 TIME: 5:03 PM CSN: [id number] [facility] 06-16-2022 Note HNO ID: [id number] Author: Jean Pierre Gamboa RPh Service: Pharmacy [...] for this patient. Signature: Jean Pierre Gamboa tali Pager/Extension: [phone] [facility] 05-17-2022 History of Present illness Narrative TYSON Pop is a 81 year old female [...] be seen in the emergency room at [facility] for probable admission for IV antibiotics and airway concern. Patient understands this and will leave shortly. Josiah Barnes MD Findings will be communicated to the referring physician via mail or electronic medical record. documented in this encounter [facility] 05-14-2022 Instructions Jared Velazquez PA-C - 05/14/2022 [...] Jared Velazquez PA-C documented in this encounter [facility] 05-14-2022 History of Present illness Narrative Images [...] which included preparing to see the patient, [id number] patient care, completing clinical documentation, performing a medically appropriate examination, counseling and educating the patient/family/caregiver, and ordering medications, tests, or procedures. documented in this encounter 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 Diagnosis Acute bacterial sialadenitis- Primary Bashir's, angina [facility] Diagnosis Localized swelling, mass and lump, neck Swelling, mass, or lump in head and neck [facility] Diagnosis Localized swelling, mass and lump, neck Swelling, mass, or lump in head and neck [facility] Diagnosis Localized swelling, mass and lump, neck- Primary Swelling, mass, or lump in head and neck Localized swelling, mass and lump, neck Swelling, mass, or lump in head and neck [facility] Diagnosis Other specified soft tissue disorders [facility] Diagnosis Localized swelling, mass and lump, neck- Primary Swelling, mass, or lump in head and neck Localized swelling, mass and lump, neck Swelling, mass, or lump in head and neck [facility] Diagnosis Abnormal findings on diagnostic imaging of other specified body structures Pain in left leg [facility] 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[facility] Diagnosis Other specified soft tissue disorders- Primary Other specified soft tissue disorders [facility]* Diagnosis Abnormal findings on diagnostic imaging of other specified body structures- Primary Pain in left leg Abnormal findings on diagnostic imaging of other specified body structures Pain in left leg [facility] Diagnosis Peripheral arterial disease (HCC)- Primary Unspecified peripheral vascular disease Right leg pain Pain in soft tissues of limb Peripheral arterial disease (HCC) Unspecified peripheral vascular disease Right leg weakness Muscle weakness (generalized) Atrial fibrillation, unspecified type (HCC) Ischemic leg Unspecified circulatory system disorder documented [facility]* Diagnosis Deep vein thrombosis (DVT) of lower extremity, unspecified chronicity, unspecified laterality, unspecified vein (HCC)- Primary [facility] Diagnosis Atrial fibrillation, unspecified type (HCC) Acute venous embolism and thrombosis of deep vessels of proximal end of right lower extremity (HCC) [facility] Diagnosis Acute deep vein thrombosis (DVT) of iliac vein of right lower extremity (HCC)- Primary PAD (peripheral artery disease) (HCC) Unspecified peripheral vascular disease documented [facility]* Diagnosis Deep vein thrombosis (DVT) of lower extremity, unspecified chronicity, unspecified laterality, unspecified vein (HCC) Atrial fibrillation, unspecified type (HCC) Acute venous embolism and thrombosis of deep vessels of proximal end of right lower extremity (HCC) [facility] Diagnosis Atrial fibrillation, unspecified type (HCC) Acute venous embolism and thrombosis of deep vessels of proximal end of right lower extremity (HCC) documented in this encounter [facility]* Diagnosis Atrial fibrillation, unspecified type (HCC) Acute venous embolism and thrombosis of deep vessels of proximal end of right lower extremity (HCC) [facility]* Diagnosis Paroxysmal atrial fibrillation (HCC) Atrial fibrillation [facility] Diagnosis Atrial fibrillation, unspecified type (HCC) [...] or 3b CKD (HCC) 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 (HCC) assisted current use of anticoagulant therapy Nicotine use disorder Tobacco use disorder Abnormal echocardiogram Nonspecific (abnormal) findings on radiological and other examination of other intrathoracic organs Left atrial mass documented in this encounter [facility] note* Diagnosis Retinal detachment, right- Primary Unspecified retinal detachment Vision loss of right eye Unqualified visual loss, one eye Acute intractable headache, unspecified headache type Visual disturbance, subjective Unspecified subjective visual disturbance Vision loss of right eye Unqualified visual loss, one eye Visual disturbance, subjective Unspecified subjective visual disturbance documented in this encounter [facility] note* Diagnosis 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 Hemorrhagic choroidal detachment Dislocation of intraocular lens, initial encounter [facility] Diagnosis 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 Hemorrhagic choroidal detachment [facility]* Diagnosis 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 Hemorrhagic choroidal detachment Dislocation of intraocular lens, initial encounter Hemorrhagic choroidal detachment of right eye Hemorrhagic choroidal detachment [facility]* Diagnosis 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 Hemorrhagic choroidal detachment Hemorrhagic choroidal detachment of right eye Hemorrhagic choroidal detachment [facility]* Diagnosis Postoperative eye state- Primary Other states following surgery of eye and adnexa Hemorrhagic choroidal detachment of right eye Hemorrhagic choroidal detachment Pseudophakia, right eye Lens replaced by other means Subluxation of right lens Subluxation of lens [facility]* Diagnosis Paroxysmal atrial fibrillation (HCC)- Primary Atrial fibrillation Paroxysmal atrial fibrillation (HCC) Atrial fibrillation [facility]* Diagnosis Postoperative eye state Other states following surgery of eye and adnexa Hemorrhagic choroidal detachment of right eye Hemorrhagic choroidal detachment Pseudophakia, right eye Lens replaced by other means Subluxation of right lens Subluxation of lens Hemorrhagic choroidal detachment of right eye Hemorrhagic choroidal detachment documented in this encounter [facility] note* Diagnosis Post-operative state- Primary Other postprocedural status [facility]* Diagnosis Postoperative eye state Other states following surgery of eye and adnexa Hemorrhagic choroidal detachment of right eye Hemorrhagic choroidal detachment Pseudophakia, right eye Lens replaced by other means Subluxation of right lens Subluxation of lens [facility]* Diagnosis Aspiration pneumonitis (CMS/HCC) (HCC)- Primary Pneumonitis due to inhalation of food or vomitus Aspiration pneumonitis (CMS/HCC) (HCC) Pneumonitis due to inhalation of food or vomitus Vomiting and diarrhea LORENZA (acute kidney injury) (HCC) [facility]* Diagnosis Acute deep vein thrombosis (DVT) of iliac vein of right lower extremity (HCC)- Primary PAD (peripheral artery disease) (HCC) Unspecified peripheral vascular disease [facility]* Diagnosis Postoperative eye state Other states following surgery of eye and adnexa Hemorrhagic choroidal detachment of right eye Hemorrhagic choroidal detachment Pseudophakia, right eye Lens replaced by other means Subluxation of right lens Subluxation of lens [facility]* Diagnosis 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 Hemorrhagic choroidal detachment Right retinal detachment Unspecified retinal detachment Postoperative eye state Other states following surgery of eye and adnexa Pseudophakia, right eye Lens replaced by other means Subluxation of right lens Subluxation of lens [facility] noteNo assessment information availableWOhio State [facility] Work Phone: Evaluation note* Diagnosis PAD (peripheral artery disease) (HCC)- Primary Unspecified peripheral vascular disease Skin ulcer of toe of right foot, limited to breakdown of skin (HCC) [facility]* Diagnosis Critical limb ischemia of right lower extremity (HCC)- Primary [facility]* Diagnosis Pre-op evaluation- Primary Skin ulcer of right great toe (HCC) Critical limb ischemia of right lower extremity (HCC) [facility] Diagnosis Skin ulcer of toe of right foot, limited to breakdown of skin (HCC)- Primary PAD (peripheral artery disease) (HCC) Unspecified peripheral vascular disease Aftercare following surgery of the circulatory system Aftercare following surgery of the circulatory system, NEC documented in this encounter [facility] note* Diagnosis Skin ulcer of toe of right foot, limited to breakdown of skin (HCC) PAD (peripheral artery disease) (HCC) Unspecified peripheral vascular disease Aftercare following surgery of the circulatory system Aftercare following surgery of the circulatory system, NEC documented in this encounter [facility] note* Diagnosis Aftercare following surgery of the circulatory system- Primary Aftercare following surgery of the circulatory system, NEC PAD (peripheral artery disease) (HCC) Unspecified peripheral vascular disease documented in this encounter [facility] note* Diagnosis 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 Hemorrhagic choroidal detachment [facility] [facility] note* Diagnosis Right retinal detachment- Primary Unspecified retinal detachment Hemorrhagic choroidal detachment of right eye Hemorrhagic choroidal detachment Pseudophakia, right eye Lens replaced by other means documented in this encounter [facility] for referral (narrative)No reason for referral information availableWOhio State [facility] Work Phone: Reason for visit Narrative* Imaging (Routine) - Closed Specialty Diagnoses / Procedures Referred By Elvin leyva Referred To Contact Cardiology Diagnoses Paroxysmal atrial fibrillation (HCC) Procedures Transthoracic echocardiogram (TTE) complete with contrast, bubble, strain, and 3D PRN MD ECHO TTHRC R-T 2D W/WOM-MODE COMPL SPEC&COLR D MD TTE W OR WO FOL WCNICK,Jared De La Garza MD [address] [place] [phone] Phone: tel: fax: Referral ID Status Reason Start Date Expiration Date Visits Re quested Visits Authorized [id number] Closed 04/20/2024 04/20/2025 1 1 [facility] for visit Narrative* Auth/Cert (Routine) Specialty Diagnoses / Procedures Referred By Elvin t Referred To Contact Diagnoses Aspiration pneumonitis (CMS/HCC) (HCC) LORENZA (acute kidney injury) (HCC) Vomiting and diarrhea Procedures . Abbi Long DO [address] [place] [address] Phone: tel: fax: [facility] [address] [place] [phone] Phone: tel: Referral ID Status Reason Start Date Expiration Date Visits Re quested Visits Authorized [id number] 1 1 [facility] [employer] for visit Narrative* Auth/Cert (Routine) Specialty Diagnoses / Procedures Referred By Elvin leyva Referred To Contact Diagnoses Skin ulcer of right great toe (HCC) Critical limb ischemia of right lower extremity (HCC) Skin ulcer of right great toe (HCC) [L97.519] Critical limb ischemia of right lower extremity (HCC) [I70.221] Procedures CHG ANGIOGRAPHY EXTREMITY UNILATERAL RS&I CHG AORTOGRAPHY ABDL BI ILIOFEM LOW EXTREM CATH RS&I CHG AORTOGRAPHY ABDOMINAL SERIALOGRAPHY RS&I MD INTRODUCTION CATHETER AORTA MD REVSC OPN/PRG FEM/POP W/ANGIOPLASTY UNI MD REVSC OPN/PRQ TIB/PAMELA W/ANGIOPLASTY UNI MD REVSC OPN/PRQ TIB/PAMELA W/STNT/ANGIOP SM VSL MD REVSC OPN/PRQ FEM/POP W/STNT/ANGIOP SM VSL AORTOILIAC ANGIOGRAPHY, RIGHT LOWER EXTREMITY ANGIOGRAPHY WITH RUNOFF, POSSIBLE SUPERFICIAL FEMORAL ARTERY/POPLITEAL/TIBIAL ANGIOPLASTY/STENTING Kristyn Blankenship MD [address] [address] Phone: tel: fax: [facility] [address] [facility] [place] [address] Phone: tel: Referral ID Status Reason Start Date Expiration Date Visits Re quested Visits Authorized [id number] 1 1 [facility] [employer] for visit Narrative* Imaging (Routine) - Closed Specialty Diagnoses / Procedures Referred By Elvin leyva Referred To Contact Vascular Surgery / Radiology Diagnoses Skin ulcer of toe of right foot, limited to breakdown of skin (HCC) PAD (peripheral artery disease) (HCC) Aftercare following surgery of the circulatory system Procedures Vascular US lower extremity arterial duplex right with MICHELLE Kristyn Blankenship MD [address] [place] [address] Phone: tel: fax: [facility] [address] [place] [phone] Phone: tel: fax: Referral ID Status Reason Start Date Expiration Date Visits Re quested Visits Authorized [id number] Closed 12/05/2024 12/05/2025 1 1 [facility] Discharge Instructions * Attachments The following attachments cannot be sent through Care Everywhere. * Pulp-Space Infection (Guinean) documented in this encounter* Instructions* Tiffany Zhu [...] Documents on File Type Date Recorded Patient Bridge Worker Apprentice Expl anation Power of Plc Engineer 04/06/2024 10:04 AM Date Activated Date Inactivated [...] Documents on File Type Date Recorded Patient Bridge Worker Apprentice Expl anation Power of Plc Engineer 04/16/2024 1:26 PM Power of Plc Engineer 04/06/2024 10:04 AM Healthcare Agents on File Name Relationship Healthcare Agent Relationshi p Communication Bacel/ Fidel Castillo Child First Alternat e Health Care Agent Damaris Leonebeck Friend Second Alternate Health Care Agent Healthcare Agents on File Name Relationship Healthcare Agent Relationshi p Communication Baceweston/ Fidel Castillo Child First Alternat e Health [...] Documents on File Type Date Recorded Patient Bridge Worker Apprentice Expl anation Power of Plc Engineer 04/16/2024 1:26 PM Power of Plc Engineer 04/06/2024 10:04 AM Date Activated Date Inactivated Comments 04/04/2024 5:46 AM 04/13/2024 7:54 PM Question Answer Comments ICU transfer: Yes Intubation: No Healthcare Agents on File Name Relationship Healthcare Agent Relationshi p Communication Bacel/ Fidel Castillo Child First Alternat e Health Care Agent Damaris Ecsobar Second Alternate Health Care Agent Healthcare Agents on File Name Relationship Healthcare Agent Relationshi p Communication Bacel/ Fidel Castillo Child First Alternat e Health Care Agent Damaris Escobar Second Alternate Health Care Agent Documents on File Type Date Recorded Patient Bridge Worker Apprentice Expl anation Advance Directive(s) 06/27/2024 12:58 PM [...] Documents on File Type Date Recorded Patient Bridge Worker Apprentice Expl anation Advance Directive(s) 06/27/2024 12:58 PM [...] [place] Friend First Alternate Health Care Agent Maxwelldorita Stokes Castillo Mother First Alternat e Health Care Agent Date Activated Date Inactivated Comments 07/07/2024 12:21 PM 07/18/2024 5:56 PM Documents on File Type Date Recorded Patient Bridge Worker Apprentice Expl anation DNR (Do Not Resuscitate) 07/13/2024 10:35 AM Power of Plc Engineer 04/16/2024 1:26 PM Power of Plc Engineer 04/06/2024 10:04 AM Date Activated Date Inactivated [...] Broderick Friend First Alternate Health Care Agent José MiguelAnais Castillo Mother First Alternat e Health Care Agent Documents on File Type Date Recorded Patient Bridge Worker Apprentice Expl anation DNR (Do Not Resuscitate) 07/13/2024 10:35 AM Power of Plc Engineer 04/16/2024 1:26 PM Power of Plc Engineer 04/06/2024 10:04 AM Date Activated Date Inactivated [...] First Alternate Health Care Agent Nadira Castillo Kayusbnd-oj-kiz First Alternat e Health Care Agent Healthcare Agents on File Name Relationship Healthcare Agent Relationship Communication Damaris DO NOT CALL-TERMINALLY ILL [place] Friend First Alternate Health Care Agent Nadira Castillo Behqnrlq-nv-jly First Alternat e Health Care Agent Healthcare Agents on File Name Relationship Healthcare Agent Relationship Communication Damaris DO NOT CALL-TERMINALLY ILL [place] Friend First Alternate Health Care Agent Nadira Castillo Wxfwysgo-gt-mnl First Alternat e Health Care Agent Date Activated Date Inactivated Comments 08/03/2024 10:17 AM 08/16/2024 4:47 PM Healthcare Agents on File Name Relationship Healthcare Agent Relationship Communication Damaris DO NOT CALL-TERMINALLY ILL [place] Friend First Alternate Health Care Agent Nadira Castillo Csiseefq-or-yge First Alternat e Health Care Agent Healthcare Agents on File Name Relationship Healthcare Agent Relationship Communication Damaris DO NOT CALL-TERMINALLY ILL [place] Friend First Alternate Health Care Agent Nadira Castillo Ajxhbwdk-fb-wlg First Alternat e Health Care Agent Healthcare Agents on File Name Relationship Healthcare Agent Relationship Communication Damaris DO NOT CALL-TERMINALLY ILL [place] Friend First Alternate Health Care Agent Nadira Castillo Qnqctqjt-up-img First Alternat e Health Care Agent Summary [...] gland swelling Procedures CONSULT TO ENT OFFICE/OUTPATIENT [facility] 60-74 MINUTES Jared Velazquez PA-C [address] [place] [address] Referral ID Status Reason Start Date Expiration Date Visits Requested Visits Authorized [id number] Authorized PCP Requested Referral 2 05/14/2023 1 1 Specialty Diagnoses / Procedures Referred By Elvin t Referred To Contact Radiology Diagnoses Localized swelling, mass and lump, neck Procedures CT soft tissue neck w IV contrast Jared Evans MD [address] [place] [phone] Referral ID Status Reason Start Date Expiration Date Visits Re quested Visits Authorized [id number] Closed 03/08/2023 04/07/2023 1 1 Specialty Diagnoses / Procedures Referred By Pabloac t Referred To Contact Cardiology Diagnoses Other specified soft tissue disorders Procedures Vascular US lower extremity venous duplex left Jared Evans MD [address] [place] [phone] Referral ID Status Reason Start Date Expiration Date V isits Requested Visits Authorized [id number] Pending Review 05/24/2023 05/23/2024 1 1 Specialty Diagnoses / Procedures Referred By Elvin leyva Referred To Contact Radiology Diagnoses Abnormal findings on diagnostic imaging of other specified body structures Pain in left leg Procedures MR tibia fibula left w and wo IV contrast Jared Evans MD [address] [place] [address] Referral ID Status Reason Start Date Expiration Date Visits Re quested Visits Authorized [id number] Closed 06/01/2023 05/31/2024 1 1 Health Concerns Infection Onset Date Last Indicated Resolved Time COVID-19 Confirmed Comment:First positive per [facility]/OD[facility] system 06/02/2022. 06/16/2022 06/16/2022 06/19/2022 5:[address] Chief Complaint and Reason for Visit Chief Complaint Admit Date LABWORK August 20, 2024 5 :22am LABWORK September 03, 2024 5:00am HALF-WAY LAB WORK September 03 8:18am HALF-WAY LAB WORK September 10 5:00am Chief Complaint Admit Date LABWORK August 20, 2024 5 :22am LABWORK September 03, 2024 5:00am HALF-WAY LAB WORK September 03 8:18am HALF-WAY LAB WORK September 10 5:00am HALF-WAY LAB WORK September 17, 2024 4: 00am Chief Complaint Admit Date LABWORK August 20, 2024 5 :22am LABWORK September 03, 2024 5:00am HALF-WAY LAB WORK September 03 8:18am HALF-WAY LAB WORK September 10 5:00am HALF-WAY LAB WORK September 17, 2024 4: 00am HALF-WAY LAB WORK October 08, 2024 5 :00am Additional Source Comments Reason for Visit (unrecogniz ed section and content) Reason Comments Post-op (Ophthalmology) Right Eye Specialty Diagnoses / Procedures Referred By Elvin leyva Referred To Contact HOSP INPATIENT Diagnoses Retinal detachment Acute retinal detachment Retinal detachment Procedures EVAL AND TREAT OT [facility] [address] [place] [address] Referral ID Status Reason Start Date Expiration Date Visits Re quested Visits Authorized [id number] 1 1 Reason Comments Hemorrhagic choroidal detachment [...] drops Specialty Diagnoses / Procedures Referred By Elvin leyva Referred To Contact Ent - Otolaryngology Diagnoses Salivary gland swelling Procedures CONSULT TO ENT OFFICE/OUTPATIENT [facility] 60-74 MINUTES Jared Velazquez PA-C [address] [place] [address] Referral ID Status Reason Start Date Expiration Date V isits Requested Visits Authorized [id number] Closed PCP Requested Referral 05/14/2022 05/14/2023 1 1 Reason Comments Follow Up Gyant interaction - F/U - attempt made. No answer. Reason Comments Follow Up Phone Call All Clear Specialty Diagnoses / Procedures Referred By Elvin leyva Referred To Contact Radiology Diagnoses Localized swelling, mass and lump, neck Procedures CT soft tissue neck w IV contrast Jared Evans MD [address] [place] [phone] Referral ID Status Reason Start Date Expiration Date Visits Re quested Visits Authorized [id number] Closed 03/08/2023 04/07/2023 1 1 Specialty Diagnoses / Procedures Referred By Elvin leyva Referred To Contact Cardiology Diagnoses Other specified soft tissue disorders Procedures Vascular US lower extremity venous duplex left Jared Evans MD [address] [place] [phone] Referral ID Status Reason Start Date Expiration Date V isits Requested Visits Authorized [id number] Pending Review 05/24/2023 05/23/2024 1 1 Specialty Diagnoses / Procedures Referred By Elvin leyva Referred To Contact Radiology Diagnoses Abnormal findings on diagnostic imaging of other specified body structures Pain in left leg Procedures MR tibia fibula left w and wo IV contrast Jared Evans MD [address] [place] [phone] Referral ID Status Reason Start Date Expiration Date Visits Re quested Visits Authorized [id number] Closed 06/01/2023 05/31/2024 1 1 Reason Comments New Patient Mass left LE Specialty Diagnoses / Procedures Referred By Contac t Referred To Contact Sports Medicine Diagnoses Pain in leg, unspecified Jared Evans MD [address] [place] [phone] [place] [address] Referral ID Status Reason Start Date Expiration Date Visits Re quested Visits Authorized [id number] Closed 07/06/2023 07/05/2024 1 1 Reason Comments Numbness Leg Swelling Specialty Diagnoses / Procedures Referred By Contac t Referred To Contact Diagnoses Right leg pain Peripheral arterial disease (HCC) Right leg weakness Atrial fibrillation, unspecified type (HCC) Procedures . Pratibha Avelar DO [address] [place] [address] [phone] Referral ID Status Reason Start Date Expiration Date Visits Re quested Visits Authorized [id number] 1 1 Reason Comments Follow-up 1st follow up RLE me chanical thrombectomy 04/06/24 (Krzysztof) Reason Onset Date Comments Med Refill 04/27/2024 Specialty Diagnoses / Procedures Referred By Contac t Referred To Contact Diagnoses [I63.9] - Cerebral infarction [facility] Medical Taylor Patiño [address] [place] [address] Referral ID Status Reason Start Date Expiration Date V isits Requested Visits Authorized [id number] New Request 06/20/2024 08/19/2024 Reason Comments Eye Problem Pt reports blurred v ision, dizziness, and headache. LNW 07/04/24 @ 2130. Hx of strokes x 2, HTN, Afib, and right eye retinal detachment. Specialty Diagnoses / Procedures Referred By Contac t Referred To Contact Diagnoses Retinal detachment, right Vision loss of right eye Procedures . Silvio Peres MD [address] [place] [address] Phone: tel: fax: [facility] [address] [place] [address] Phone: tel: Referral ID Status Reason Start Date Expiration Date Visits Re quested Visits Authorized [id number] 1 1 Reason Comments Eye Pain Right [...] OF VITREOUS, CHOROIDAL FLUID, PARS PLANA APPROACH [facility] [address] [address] Referral ID Status Reason Start Date Expiration Date Visits Re quested Visits Authorized [id number] 1 1 Reason Comments 1 week post [...] and diarrhea Procedures . Abbi Long DO [address] [place] [address] Phone: tel: fax: [facility] [address] [place] [address] Phone: tel: Referral ID Status Reason Start Date Expiration Date Visits Re quested Visits Authorized [id number] 1 1 Reason Comments Follow-up 3 month follow up, P AD check ([facility] [place]) Reason Comments Post-op (Ophthalmology) Right Eye 1 marisela h Reason Comments Post op OD Reason Comments Follow-up R leg pain with grea t toe wound-PVR and CTA w runoff 03/2024 Reason Comments Follow-up 1st follow up RLE an juliana, possible SFA/pop/tib angioplasty/stenting 11/22/24 Reason Comments 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; 2nd follow up RLE angio, SFA/pop/tib angioplasty/stenting 11/22/24 ([facility] [phone]) Reason Comments Post-op (Ophthalmology) Right Eye Retinal Detachment OD Eye Crusting OD In the mornings INFORMATION SOURCE (unrecogn ized section and content) DATE CREATED AUTHOR 03/13/2020 [facility] DATE CREATED AUTHOR AUTHOR'S ORGANIZ ATION 06/30/2022 [facility] DATE CREATED AUTHOR AUTHOR'S ORGANIZ ATION 07/10/2024 [facility] DATE CREATED AUTHOR AUTHOR'S ORGANIZ ATION 12/14/2024 [facility] DATE CREATED AUTHOR AUTHOR'S ORGANIZ ATION 01/05/[address] [facility] DATE CREATED AUTHOR AUTHOR'S ORGANIZ ATION 01/09/2025 [facility] DATE CREATED AUTHOR AUTHOR'S ORGANIZ ATION 01/29/2025 [facility] Source Comments (unrecognize d section and content) In the event this informatio n is protected by the Federal Confidentiality of Alcohol and Drug Abuse Patient Records regulations: The Federal rules restrict any use of the information to criminally investigate or prosecute any alcohol or drug abuse patient.[facility] CenterIn the event this information is protected by the Federal Confidentiality of Alcohol and Drug Abuse Patient Records regulations: The Federal rules restrict any use of the information to criminally investigate or prosecute any alcohol or drug abuse patient.[facility] CenterIn the event this information is protected by the Federal Confidentiality of Alcohol and Drug Abuse Patient Records regulations: The Federal rules restrict any use of the information to criminally investigate or prosecute any alcohol or drug abuse patient.[facility] CenterIn the event this information is protected by the Federal Confidentiality of Alcohol and Drug Abuse Patient Records regulations: The Federal rules restrict any use of the information to criminally investigate or prosecute any alcohol or drug abuse patient.[facility] CenterIn the event this information is protected by the Federal Confidentiality of Alcohol and Drug Abuse Patient Records regulations: The Federal rules restrict any use of the information to criminally investigate or prosecute any alcohol or drug abuse patient.[facility] CenterIn the event this information is protected by the Federal Confidentiality of Alcohol and Drug Abuse Patient Records regulations: The Federal rules restrict any use of the information to criminally investigate or prosecute any alcohol or drug abuse patient.[facility] CenterIn the event this information is protected by the Federal Confidentiality of Alcohol and Drug Abuse Patient Records regulations: The Federal rules restrict any use of the information to criminally investigate or prosecute any alcohol or drug abuse patient.[facility] CenterIn the event this information is protected by the Federal Confidentiality of Alcohol and Drug Abuse Patient Records regulations: The Federal rules restrict any use of the information to criminally investigate or prosecute any alcohol or drug abuse patient.[facility] CenterIn the event this information is protected by the Federal Confidentiality of Alcohol and Drug Abuse Patient Records regulations: The Federal rules restrict any use of the information to criminally investigate or prosecute any alcohol or drug abuse patient.[facility] CenterIn the event this information is protected by the Federal Confidentiality of Alcohol and Drug Abuse Patient Records regulations: The Federal rules restrict any use of the information to criminally investigate or prosecute any alcohol or drug abuse patient.[facility] CenterIn the event this information is protected by the Federal Confidentiality of Alcohol and Drug Abuse Patient Records regulations: The Federal rules restrict any use of the information to criminally investigate or prosecute any alcohol or drug abuse patient.[facility] CenterIn the event this information is protected by the Federal Confidentiality of Alcohol and Drug Abuse Patient Records regulations: The Federal rules restrict any use of the information to criminally investigate or prosecute any alcohol or drug abuse patient.[facility] CenterIn the event this information is protected by the Federal Confidentiality of Alcohol and Drug Abuse Patient Records regulations: The Federal rules restrict any use of the information to criminally investigate or prosecute any alcohol or drug abuse patient.[facility] CenterIn the event this information is protected by the Federal Confidentiality of Alcohol and Drug Abuse Patient Records regulations: The Federal rules restrict any use of the information to criminally investigate or prosecute any alcohol or drug abuse patient.[facility] CenterIn the event this information is protected by the Federal Confidentiality of Alcohol and Drug Abuse Patient Records regulations: The Federal rules restrict any use of the information to criminally investigate or prosecute any alcohol or drug abuse patient.[facility] CenterIn the event this information is protected by the Federal Confidentiality of Alcohol and Drug Abuse Patient Records regulations: The Federal rules restrict any use of the information to criminally investigate or prosecute any alcohol or drug abuse patient.[facility] CenterIn the event this information is protected by the Federal Confidentiality of Alcohol and Drug Abuse Patient Records regulations: The Federal rules restrict any use of the information to criminally investigate or prosecute any alcohol or drug abuse patient.[facility] CenterIn the event this information is protected by the Federal Confidentiality of Alcohol and Drug Abuse Patient Records regulations: The Federal rules restrict any use of the information to criminally investigate or prosecute any alcohol or drug abuse patient.[facility] CenterIn the event this information is protected by the Federal Confidentiality of Alcohol and Drug Abuse Patient Records regulations: The Federal rules restrict any use of the information to criminally investigate or prosecute any alcohol or drug abuse patient.[facility] Care Teams (unrecognized sec tion and content) Facility Manager Histology Relationship Specialty Start Date End Date Pcp, No PCP - General 01/30/22 08/17/22 Facility Manager Histology Relationship Specialty Start Date End Date Pcp, No PCP - General 01/30/22 08/17/22 Facility Manager Histology Relationship Specialty Start Date End Date Jared Evans MD [address] [place] [address] PCP - General Family Medicine 05/18/22 Facility Manager Histology Relationship Specialty Start Date End Date Jared Evans MD [address] [place] [address] PCP - General Family Medicine 05/18/22 Facility Manager Histology Relationship Specialty Start Date End Date Jared Evans MD [address] [place] [address] PCP - General Family Medicine 05/18/22 Facility Manager Histology Relationship Specialty Start Date End Date Jared Evans MD [address] [place] [address] PCP - General 03/06/20 Facility Manager Histology Relationship Specialty Start Date End Date Jared Evans MD [address] [place] [address] PCP - General 03/06/20 Facility Manager Histology Relationship Specialty Start Date End Date Jared Evans MD [address] [place] [address] PCP - General 03/06/20 Facility Manager Histology Relationship Specialty Start Date End Date Jared Evans MD [address] [place] [address] PCP - General 03/06/20 Facility Manager Histology Relationship Specialty Start Date End Date Jared Evans MD [address] [place] [address] PCP - General 03/06/20 Facility Manager Histology Relationship Specialty Start Date End Date Jared Evans MD [address] [place] [address] PCP - General 03/06/20 Facility Manager Histology Relationship Specialty Start Date End Date Jared Evans MD [address] [place] [address] PCP - General 03/06/20 Facility Manager Histology Relationship Specialty Start Date End Date aJred Evans MD [address] [place] [address] PCP - General 03/06/20 Facility Manager Histology Relationship Specialty Start Date End Date Jared Evans MD [address] [place] [address] PCP - General 03/06/20 Facility Manager Histology Relationship Specialty Start Date End Date Jared Evans MD [address] [place], [place] [address] PCP - General 03/06/20 Facility Manager Histology Relationship Specialty Start Date End Date Jared vEans MD [address] [place] [address] PCP - General 03/06/20 Facility Manager Histology Relationship Specialty Start Date End Date Jared Evans MD [address] [place] [address] PCP - General 03/06/20 Facility Manager Histology Relationship Specialty Start Date End Date Jared Evans MD [address] [place] [address] PCP - General 03/06/20 Henok Hernandez PA-C [address] [address] Physician Cloth Washer Back Tender Physician Cloth Washer Back Tender 04/19/24 Facility Manager Histology Relationship Specialty Start Date End Date Jared Evans MD [address] [place] [address] PCP - General 03/06/20 Henok Hernandez PA-C [address] [address] Physician Cloth Washer Back Tender Physician Cloth Washer Back Tender 04/19/24 Facility Manager Histology Relationship Specialty Start Date End Date Jared Evans MD [address] [place] [address] PCP - General 03/06/20 Henok Hernandez PA-C [address] [address] Physician Cloth Washer Back Tender Physician Cloth Washer Back Tender 04/19/24 Facility Manager Histology Relationship Specialty Start Date End Date Jared Evans MD [address] [place] [place] [address] PCP - General 03/06/20 Henok Hernandez PA-C [address] [address] Physician Cloth Washer Back Tender Physician Cloth Washer Back Tender 04/19/24 Facility Manager Histology Relationship Specialty Start Date End Date Jared Evans MD [address] [facility] [place] [address] PCP - General 03/06/20 Henok Hernandez PA-C [address] [address] Physician Cloth Washer Back Tender Physician Cloth Washer Back Tender 04/19/24 Facility Manager Histology Relationship Specialty Start Date End Date Jared Evans MD [address] [place] [place] [address] PCP - General 03/06/20 Henok Santizo PA-C [address] [address] Physician Cloth Washer Back Tender Physician Cloth Washer Back Tender 04/19/24 Facility Manager Histology Relationship Specialty Start Date End Date Jared Evans MD [address] [place] [address] PCP - General 03/06/20 Henok Santizo PA-C [address] [place] [address] Physician Cloth Washer Back Tender Physician Cloth Washer Back Tender 04/19/24 Facility Manager Histology Relationship Specialty Start Date End Date Jared Evans MD [address] [place] [address] PCP - General Family Medicine 05/18/22 Facility Manager Histology Relationship Specialty Start Date End Date Jared Evans MD [address] [place] [address] PCP - General Family Medicine 05/18/22 Facility Manager Histology Relationship Specialty Start Date End Date Jared Evans MD [address] [place] [address] PCP - General 03/06/20 Henok Santizo PA-C [address] [place] [address] Physician Cloth Washer Back Tender Physician Cloth Washer Back Tender 04/19/24 Facility Manager Histology Relationship Specialty Start Date End Date Jared Evans MD [address] [place] [address] PCP - General Family Medicine 05/18/22 Facility Manager Histology Relationship Specialty Start Date End Date Jared Evans MD [address] [place] [place] [address] PCP - General Family Medicine 05/18/22 Facility Manager Histology Relationship Specialty Start Date End Date Jared Evans MD [address] [place] [place] [address] PCP - General Family Medicine 05/18/22 Facility Manager Histology Relationship Specialty Start Date End Date Jared Evans MD [address] [place] [place] [address] PCP - General Family Medicine 05/18/22 Facility Manager Histology Relationship Specialty Start Date End Date Jared Evans MD [address] [place] [address] PCP - General Family Medicine 05/18/22 Facility Manager Histology Relationship Specialty Start Date End Date [facility] [place] [address] PCP - General 03/06/20 Henok Santizo PA-C [address] [place] [address] Physician Cloth Washer Back Tender Physician Cloth Washer Back Tender 04/19/24 Facility Manager Histology Relationship Specialty Start Date End Date Jared Evans MD [address] [place] [place] [address] PCP - General Family Medicine 05/18/22 Facility Manager Histology Relationship Specialty Start Date End Date Jared Evans MD [address] [place] [place] [address] PCP - General Family Medicine 05/18/22 Facility Manager Histology Relationship Specialty Start Date End Date Jared Evans MD [address] [place] [address] PCP - General Family Medicine 05/18/22 Facility Manager Histology Relationship Specialty Start Date End Date Jared Evans MD [facility] [place] [address] PCP - General 03/06/20 Henok Santizo PA-C [address] [facility] [address] [address] Physician Cloth Washer Back Tender Physician Cloth Washer Back Tender 04/19/24 Facility Manager Histology Relationship Specialty Start Date End Date Jared Evans MD [address] [place] [address] PCP - General 03/06/20 Henok Santizo PA-C [address] [facility] [address] [address] Physician Cloth Washer Back Tender Physician Cloth Washer Back Tender 04/19/24 Facility Manager Histology Relationship Specialty Start Date End Date Jared [facility] [place] [address] PCP - General 03/06/20 Henok Santizo PA-C [address] [facility] [address] [address] Physician Cloth Washer Back Tender Physician Cloth Washer Back Tender 04/19/[address] [address] Custodial Facility 08/22/24 Facility Manager Histology Relationship Specialty Start Date End Date Jared Evans MD [address] [place] [address] PCP - General Family Medicine 05/18/22 Facility Manager Histology Relationship Specialty Start Date End Date Jared Evnas MD [address] [place] [address] PCP - General Family Medicine 05/18/22 Team [...] October 08, 2024 End: October 08, 2024 Facility Manager Histology Relationship Specialty Start Date End Date Jared [facility] [place] [address] PCP - General 03/06/20 Henok Santizo PA-C [address] [place] [address] Physician Cloth Washer Back Tender Physician Cloth Washer Back Tender 04/19/24 [facility] [address] [place] [address] Custodial Facility 08/22/24 Facility Manager Histology Relationship Specialty Start Date End Date Jared Evans MD [address] [facility] [address] PCP - General 03/06/20 Henok Santizo PA-C [address] [place] [address] Physician Cloth Washer Back Tender Physician Cloth Washer Back Tender 04/19/24 [facility] [address] [place] [address] Custodial Facility 08/22/24 Facility Manager Histology Relationship Specialty Start Date End Date Jared Evans MD [address] [facility] [place] [address] PCP - General 03/06/20 Henok Santizo PA-C [address] [address] Physician Cloth Washer Back Tender Physician Cloth Washer Back Tender 04/19/24 [facility] [address] [place] [address] Custodial Facility 08/22/24 Facility Manager Histology Relationship Specialty Start Date End Date Jared Evans MD [address] [facility] [place] [address] PCP - General 03/06/20 Henok Santizo PA-C [address] [place] [address] Physician Cloth Washer Back Tender Physician Cloth Washer Back Tender 04/19/24 [facility] [address] [place] [address] Custodial Facility 08/22/24 Facility Manager Histology Relationship Specialty Start Date End Date Jared Evans MD [address] [place] [address] PCP - General 03/06/20 Henok Santizo PA-C [address] [address] Physician Cloth Washer Back Tender Physician Cloth Washer Back Tender 04/19/24 [facility] [address] [place] [address] Custodial Facility 08/22/24 Facility Manager Histology Relationship Specialty Start Date End Date Megan Montoya [address] [place] [phone] PCP - General Internal Medicine 12/13/24 Henok Santizo PA-C [address] [address] Physician Cloth Washer Back Tender Physician Cloth Washer Back Tender 04/19/24 [facility] [address] [place] [address] Custodial Facility 08/22/24 Facility Manager Histology Relationship Specialty Start Date End Date Megan Montoya [address] [place] [phone] PCP - General Internal Medicine 12/13/24 Henok Santizo PA-C [address] [address] Physician Cloth Washer Back Tender Physician Cloth Washer Back Tender 04/19/24 Kristyn Blankenship MD 95 [facility] [address] [place] [address] Consulting Physician Vascular Surgery 12/24/24 [facility] [address] [place] [address] Custodial Facility 08/22/24 Facility Manager Histology Relationship Specialty Start Date End Date Jared Evans MD [address] [place] [address] PCP - General Family Medicine 05/18/22 Facility Manager Histology Relationship Specialty Start Date End Date Jared Evans MD [address] [place] [address] PCP - General Family Medicine 05/18/22 Scheduled Active and Recently Administ ered Medications (unrecognized section and content) Medication Order 04/11/2024 04/12/2024 04/13/2024 Fluticasone-Umeclidin- Vilant 100-62.5-25 MCG/ACT aerosol powder 1 puff 1 puff, Inhalation, Daily, First dose (after last modification) on Tue04/11/24 at 0600, Drug Name: Trelegy Ellipta 100-62.5-25mcg/act, Form: aerosol powder, Length of [...] Provider: Arin Thomas) 0807 (Given - Provider: Ailn Wallis RN) pantoprazole (ProtoNix) EC tablet 40 [...] For 1 dose 1604 (Given - Provider: Alni Wallis RN - Comment: patient is about [...] Davis RN)1018 (Rate/Dose Verify - Provider: Sravanthi Nicohle RN)1530 (Rate/Dose Verify - Provider: Sravanthi Nichole RN)1823 (New Bag - Provider: Sravanthi Nichole RN)1923 (Handoff - Provider: Norma Davis RN) 0426 (Rate/Dose Verify - Provider: Norma Davis RN)0637 (Rate/Dose Verify - Provider: Norma Davis RN)0728 (Rate/Dose Verify - Provider: Alin Wallis, RN)1100 (Stopped - Provider: Alin Wallis RN) [...] reversal, respiratory depression, Starting on Tue04/04/24 at 202, +++ For RR <10, pinpoint pupils, over sedation for opioid reversal - MUST notify brickmason provider immediately after first dose, may give [...] Davis RN) 2019 (Given - Provider: Norma Davis RN) oxyCODONE (Roxicodone) immediate release tablet 5 mg(Linked Group 3) 5 mg, Oral, Every 4 hours PRN, severe pain (7-10), Starting on Maida 04/05/24 at 1342 2048 (Given - Provider: Norma Davis, RN) 2019 (See Alternative - Provider: Norma Davis, RN) polyethylene glycol (PEG) 3350 (Miralax) packet [...] hours PRN, moderate pain (4-6), Starting on [facility] 04/05/24 at 1342 Or oxyCODONE (Roxicodone) immediate release tablet 5 mgJump to med 5 mg, Oral, Every 4 hours PRN, severe pain (7-10), Starting on Tue04/05/24 at 1342 Scheduled Medication Order 07/05/2024 07/06/2024 [...] Lopes RN) 0936 (Given - Provider: La Avila RN) brimonidine (AlphaGAN) 0.2 % ophthalmic solution 1 drop 1 drop, Right Eye, 3 times daily, First dose on Tue07/05/24 at 1400 1524 (Given - Provider: Aurea Castellon RN)2028 (Given - Provider: Luis Murry RN) 0914 (Given - Provider: Cecilia Lopes RN)1447 (Given - Provider: Cecilia Lopes RN)2105 (Given - Provider: Luis Murry RN) 0936 (Given - Provider: La Avila RN) dorzolamide (Trusopt) 2 % ophthalmic solution 1 drop 1 drop, Right Eye, 3 times daily, First dose on Tue07/05/24 at 1400 1524 (Given - Provider: Aurea Castellon RN)2028 (Given - Provider: Luis Murry RN) 09 (Given - Provider: Cecilia Lopes RN)144 (Given - Provider: Cecilia Lopes RN)2105 (Given - Provider: Luis Murry RN) 0936 (Given - Provider: La Avila RN) enoxaparin (Lovenox) syringe 70 mg 70 mg, SubCUTAneous, Every 12 hours, First dose on Maida 07/05/24 at 1500 1738 (Given - Provider: Cecilia Lopes RN) 0406 (Given - Provider: Luis Murry RN)1443 (Given - Provider: Cecilia Lopes RN) 0349 (Given - Provider: Luis Murry, RN) fentaNYL (Sublimaze) injection 25 mcg (COMPLETED) [...] 1 dose 0517 (Given - Provider: Arin Jama RN) lisinopril tablet 40 mg 40 mg, [...] Luis Murry RN - Reason: Patient/family refused) 0911 (Given - Provider: Cecilia Lopes RN)2000 (Not Given - Provider: Luis Murry RN - Reason: Patient/family refused) 0936 (Given - Provider: La Avila, RN) morphine injection 4 mg (COMPLETED) 4 mg, IntraVENous, Once, On Maida 07/05/24 at 1300, For 1 dose, If oral and IV narcotics ordered, use oral first and only use IV if oral is ineffective or cannot take oral. Do Not give oral and IV within 1 hour of each other unless specifically ordered. 1356 (Given - Provider: Esther Raya, RADHA) ondansetron (Zofran) injection 4 mg (COMPLETED) 4 mg, IntraVENous, Once, On Maida 07/05/24 at 0450, For 1 dose 0445 (Given - Provider: Arin Jama, RADHA) prednisoLONE acetate (Pred-Forte) 1 % ophthalmic suspension 1 drop 1 drop, Right Eye, Every 4 hours scheduled (6 times per day), First dose on Maida 07/05/24 at 1210 1235 (Given - Provider: Esther Raya RN)1742 (Given - Provider: Cecilia Lopes RN)2029 (Given - Provider: Luis Murry, RADHA) 0000 (Given - Provider: Luis Murry RN)0406 (Given - Provider: Luis Murry, RADHA)0908 (Given - Provider: Cecilia Lopes, RADHA)1303 (Given - Provider: Cecilia Lopes, RADHA)1627 (Given - Provider: Cecilia Lopes, RADHA)2106 (Given - Provider: Luis Murry, RADHA) 0000 (Given - Provider: Luis Murry, RADHA)0349 (Given - Provider: Luis Murry, RADHA)0936 (Given - Provider: La Avila, RADHA)1200 (Canceled Entry - Provider: Automatic Discharge Provider [...] 0936 (Given - Provider: La Avila, RADHA) tiotropium (Spiriva Respimat) 2.5 MCG/ACT inhaler 2 [...] RN) 0918 (New Bag - Provider: Cecilia Lopes, RADHA) PRN Medication Order 07/05/2024 07/06/2024 07/07/2024 acetaminophen [...] hours. 0918 (See Alternative - Provider: Cecilia Lopes RN) acetaminophen (Tylenol) tablet 650 mg(Linked Group 1) 650 mg, Oral, Every 6 hours PRN, mild pain (1-3), fever, For temp greater than 100.4 F (38 C), Starting on Maida 07/05/24 at 1324, Maximum dose of acetaminophen is 4000 mg from all sources in 24 hours. 0918 (Given - Provider: Cecilia Lopes RN) hydrALAZINE (Apresoline) injection 10 mg (CANCELED) 10 mg, IntraVENous, Every 4 hours PRN, high blood pressure, SBP >150, Starting on Maida 07/05/24 at 0527 1226 (Given - Provider: Esther Raya RN) HYDROmorphone (Dilaudid) injection 0.25 mg(Linked Group 2) [...] ordered. 0554 (See Alternative - Provider: Arin Jama RN)1005 (See Alternative - Provider: De Lopez RN) 1217 (See Alternative - Provider: Cecilia Lopes RN)2108 (See Alternative - Provider: Luis Murry RN) 0300 (See Alternative - Provider: Luis Murry RN)0724 (See Alternative - Provider: La Avila, RADHA) HYDROmorphone (Dilaudid) injection 0.5 mg(Linked Group 2) 0.5 mg, IntraVENous, Every 4 hours PRN, severe pain (7-10), Starting on Maida 12//24 at 0540, If oral and IV narcotics ordered, use oral first and only use IV if oral is ineffective or cannot take oral. Do Not give oral and IV within 1 hour of each other unless specifically ordered. 0554 (Given - Provider: Arin Jama RN)1005 (Given - Provider: De Lopez RN) 1217 (Given - Provider: Cecilia Lopes, RADHA)2108 (Given - Provider: Luis Murry RN) 0300 (Given - Provider: Luis Murry RN)0724 (Given - Provider: La Avila, RADHA) iopamidol (Isovue-370) 76 % injection 100 mL (COMPLETED) 100 mL, IntraVENous, IMG once PRN, contrast, Starting on Maida 12/24 at 0440, For 1 dose 0440 (Given - Provider: Neida Galindo, RT (R)(CT)) naloxone (Narcan) injection 0.4 mg 0.4 mg, IntraVENous, As needed, opioid reversal, pinpoint pupils, Starting on Maida 12/24 at 0540, administer IV PRN for oversedation, RR LESS than 10 ondansetron (Zofran) injection 4 mg(Linked Group 3) 4 mg, IntraVENous, Every 6 hours PRN, nausea, vomiting, Starting on Maida 12//24 at 0523, 1st Line. Give IV if patient is unable to take orally. If inadequate response within 60 minutes, proceed to next-line agent or contact provider if no further options ordered. 1228 (Given - Provider: Esther Raya, RADHA) 1513 (See Alternative - Provider: Cecilia Lopes, [...] Raya RN) 1513 (Given - Provider: Cecilia Lopes, RADHA) oxyCODONE (Roxicodone) immediate release tablet 5 mg 5 mg, Oral, Every 6 hours PRN, severe pain (7-10), moderate pain (4-6), Starting on Maida 07/05/24 at 1444 1659 (Given - Provider: Cecilia Lopes, RADHA) 1103 (Given - Provider: Cecilia Lopes, RADHA) polyethylene glycol (PEG) 3350 (Miralax) packet [...] BE BASED ON THE PRIMARY CLINICAL RECORDS. [facility] [employer] [facility]. provides no warranty or guarantee of the accuracy or completeness of information in this document.
[2025-01-31 09:19] LABS: Prothrombin Time (Protime)PT. 34.2 SECONDS (11.7-14.9)
== END ==
LOC: OLS.SANC 05:00
PROVIDERS: Visit Provider Internal Medicine
DX: Z79.01 Long term (current) use of anticoagulants (principal)
CPT/HCPCS: 36415; 85610

== ENCOUNTER → 2025-02-04 05:00 | Outpatient (REF) | payer MEDICARE, SELFPAY ==
--- OUTSIDE RECORDS SUMMARY | 2025-02-04 04:45 | XMS RPT_ITS | CCD ---
Author Organization [facility] Care Team Providers Care Podiatry Doctor Name Role Phone Maryuri King Primary Care Provider [phone] Jared Evans Primary Care Provider Pcp, No Primary Care Provider UnavailJared Mckinnon MD Primary Care Provider BERNIE MANE Admitting Unavailable IWONA CHU Attending Unavailable MING OLSON Consulting Unavailable SIM ELIZABETH Attending Unavailable PRIMO DODD Referring Unavailable Jared Evans MD Primary Care Provider [phone] Jared Evans MD Primary Care Provider [phone] Henok Hernandez PA-C Unavailable Henok Santizo PA-C Unavailable Jared Evans MD Primary Care Provider SYSTEM, PROVIDER NOT IN Referring Unavaila Megan Rice Attending Provider Unavailab Megan Porras Referring Provider Unavailab Megan Porras Attending Provider Unavailab Megan Porras Referring Provider Unavailab TORSTEN Hernandez Consulting Unavailable JARED EVANS Primary Care Unavailable FELICIA COREAS Admitting Unavailable DON EDWARDS Attending Unavailable Megan Montoya Primary Care Provider Krzysztof BROWNE, Kristyn Unavailable RED HENDERSON Referring Unavail able JARED EVANS Primary Care Unavailable FELICIA LEVY Admitting Unavailable BRIANA PRITCHARD Attending Unavailable MAMMO, SAVANA A Attending Unavailable MAMMO, SAVANA A Referring Unavailable EVANS, [facility] Primary Care Unavailable MAMMO, SAVANA A Referring Unavailable EVANS, [facility] Primary Care Unavailable MAMMO, SAVANA A Attending Unavailable EVANS, [place] Primary Care Unavailable MAMMO, SAVANA A Attending Unavailable EVANS, [place] N Primary Care Unavailable MAMMO, SAVANA A Attending Unavailable EVANS, [place] N Primary Care Unavailable MAMMO, SAVANA A Referring Unavailable EVANS, [facility] Primary Care Unavailable MADHU, DEVIKA A Admitting Unavailable MADHU, DEVIKA A Attending Unavailable EVANS, [place] Primary Care Unavailable AZAR BURK Consulting Unavailable MAMMO, SAVANA A Admitting Unavailable MAMMO, SAVANA A Attending Unavailable EVANS, [facility] Primary Care Unavailable MAMMO, SAVANA A Attending Unavailable SELF Referring Unavailable EVANS, [facility] Primary Care Unavailable EVANS, [facility] Primary Care Unavailable SELF Referring Unavailable EVANS, [facility] Primary Care Unavailable SELF Referring Unavailable EVANS, [facility] Primary Care Unavailable SELF Referring Unavailable EVANS, [facility] Primary Care Unavailable MAMMO, SAVANA A Attending Unavailable MAMMO, SAVANA A Referring Unavailable EVANS, [facility] Primary Care Unavailable SELF Referring Unavailable EVANS, [facility] Primary Care Unavailable [place]ANS, [place] Primary Care Unavailable ANDRE WHIPPLE Consulting Unavailable PRATIBHA AVELAR Admitting Unavailable JORDIN ROLDAN Attending Unavailable EVANS, [place] Primary Care Unavailable DEVIN, RED Attending Unavailable DEVIN, RED Admitting Unavailable EVANS, [place] Primary Care Unavailable KRZYSZTOF, KRISTYN Admitting Unavailable KRZYSZTOF, KRISTYN Attending Unavailable EVANS, [place] Primary Care Unavailable EVANS, [place] Primary Care Unavailable [place]ANS, [place] Primary Care Unavailable TRISTA, MARTHA Admitting Unavailable BARDEVIKA SMITH Attending Unavailable EVANS, [place] Primary Care Unavailable DARLYNHENOK Attending Unavailable EVANS, [place] Primary Care Unavailable KRZYSZTOF, KRISTYN Attending Unavailable [place]ANS, [place] Primary Care Unavailable KRZYSZTOF, KRISTYN Attending Unavailable NAKIA, ANTHONY K Referring Unavailable EVANS, [place] Primary Care Unavailable EVANS, [place] Primary Care Unavailable [place]ANS, [place] Primary Care Unavailable MARIANA KING Referring Unavailable EVANS, [place] Primary Care Unavailable MARIANA KING Referring Unavailable MEGAN MONTOYA Primary Care Unavailable KRZYSZTOF, KRISTYN Referring Unavailable KRZYSZTOF, KRISTYN Attending Unavailable EVANS, JARED Primary Care Unavailable EVANS, JARED Referring Unavailable EVANS, JARED Attending Unavailable EVANS, JARED Primary Care Unavailable EVANS, JARED Primary Care Unavailable EVANS, JARED Primary Care Unavailable BRITTNEYVENKATESH LOPEZIANNA Attending Unavailable DARLYN, HENOK Attending Unavailable EVANS, JARED Primary Care Unavailable EVANS, JARED Primary Care Unavailable EVANS, JARED Referring Unavailable HERMILA PADILLA Attending Unavailable KRZYSZTOF, KRISTYN Attending Unavailable KATSAROS, PETER Primary Care Unavailable Katsaros OLS, Megan Attending Unavailable Katsaros OLS, Peter Referring Unavailable Katsaros OLS, Megan Attending Unavailable Katsaros, [...] Katsaros OLS, Megan Attending Unavailable Katsaros OLS, Peter Referring Unavailable Katsaros OLS, Peter Attending Unavailable Allergies Allergy Classification Reported Allergen(s) Allergy Type Date of Onset Reaction(s) Facility (20 sources) Amoxicillin Drug Allergy 0 [place] (20 sources) fluticasone / salmeterol Drug Allergy 0 Intolerance [place] (20 sources) Acetaminophen / oxyCODONE; Translations: [OXYCODONE-ACETAM INOPHEN] Drug Allergy 2 Itching [facility] Repository (9 sources) Ampicillin; Translations: [AMPICILLIN] Drug Allergy [address] [facility] (11 sources) Amoxicillin-Pot Clavulanate Drug Allergy 5 [facility] (1 source) FLUTICASONE PROPION-SALMETERO L; Translations: [FLUTICASONE PROPION-SALMETERO L] Propensity to adverse reactions to drug (disorder) 0 [facility] Repository Medications Current Medications Medication [...] for pain for up to 3 days. [id number] 200 actuat albuterol 0.09 mg/actuat metered dose [...] Start: 06-28-2022 take 2 tablets by mo [facility] twice daily, then take 1 tablet by [...] Comment on above: Take 1 tablet by [facility] three times daily. atorvastatin 80 mg oral [...] the event of a Fluress shortage, administer [place]-Fluor 1 drop into both eyes as directed [...] Comment on above: Take 2 tablets by [facility] every 12 hours for 3 days, [...] Comment on above: Take 1 tablet by [facility] every 12 hours for 7 days. 0.5 [...] for dry skin. Active lactobacillus rhamnosus gg [id number] unt oral capsule (2 sources) Start: 06-29-20 End: 07-29-19 23 take 1 capsule by mouth once daily lactobacillus rhamnosus (CULTURELLE) 10 billion cell capsule Take 1 capsule by mouth once daily. 30 capsule 0 06/29/2022 07/29/2022 Active Comment on above: Take 1 capsule by [facility] once daily. lidocaine 0.04 mg/mg medicated [...] 2259, Administer for dilation PROTECT FROM LIGHT, OPHT CLINIC MED ORDERS Start: 10-01-2024 End: 10-01-2024 PHENYLephrine 2.5 % 1 Drop ( AK-DILATE, KEL-SYNEPHRINE) Start: 10-01-2024 End: 10-01-2024 1 Drop, RIGHT EYE, DIRECT ED, Starting on 10/01/24 at 1030, Until Tue10/01/24 at 2229, Administer for dilation PR[facility] LIGHT, [facility] Start: 09-05-2024 End: 09-05-2024 PHENYLephrine 2.5 % 1 Drop ( AK-DILATE, KEL-SYNEPHRINE) Start: 09-05-2024 End: 09-05-2024 1 Drop, RIGHT EYE, DIRECT ED, Starting on Tue09/05/24 at 1030, Until Tue09/05/24 at 2229, Administer for dilation PROTECT FROM LIGHT, [facility] Start: 08-01-2024 End: [...] Drop ( AK-DILATE, KEL-SYNEPHRINE) polyethylene glycol 3350 82996 mg powder for oral solution (11 sources) [...] on Tue10/01/24 at 1030, Until Tue10/01/24 at 222, Administer for pneumo tonometry, tonopen tonometry, or [...] twenty-four hours 1,000 mg, Oral, Once, On Maida 11/22/24 [...] Start: 06-28-2022 take 2 tablets by mo [facility] every six hours acetaminophen (TYLENOL) 325 mg tablet Take 2 tablets by mouth every 6 hours. 07/17/2024 Active acetaminophen (T YLENOL) 325 mg cap Take by mouth. 0 Active Comment on above: Take by mouth. Take 2 tablets by mo [facility] every 6 hours as needed for pain. [...] sodium chloride 0.9 % 100 mL IVPB (Add-Olcott) (2 sources) Start: End: take 3000 mg intravenously every six hours 3,000 mg, IntraVENous, at 200 mL/hr, Administer over 30 Minutes, Every 6 hours, First dose on Tue08/03/24 at 1200, For 18 doses, ADD-Olcott bag, Suspected Indication (Select all that apply): [...] Anesthetic Start: 03-07-2020 End: 03-07-2020 lidocaine-EPINEPHrine 1 percent-1:[id number] injection 8 mL ergocalciferol 1.25 mg oral capsule (3 sources) Provitamin D2 Compound End: 07-05-2024 take 1 capsule by mouth every week ergocalciferol (Vitamin D2) 1.25 MG (51494 UT) capsule Take 1.25 mg by mouth [...] Start: 05-19-2023 take 1 puff(s) by mo [facility] once daily Trelegy Ellipta 100-62.5-25 MCG/ACT aerosol [...] Inhalation, 2 times daily, First dose on Tue24 at 2000, Rinse mouth with water after [...] End: 04-09-2024 40 mg, IntraVENous, Once, On 04/09/24 at 1430, For 1 dose gadobutrol (Gadavist) [...] Comment on above: Take 1 tablet by [facility] twice daily before meals (0600/1600). prochlorperazine 5 [...] on Tue04/03/24 at 1820 sodium zirconium cyclosilicate 91167 mg powder for oral suspension (2 sources) [...] lower extremity (HCC) Take as directed by [facility] (90 tablets = 90 [...] lower extremity (HCC) Take as directed by [facility] (45 tablets= 30 day supply) 45 tablet 1 04/27/2024 Active Start: 04-09-2024 7.5 mg, Oral, Once Warfarin, On Maida 04/12/24 at 1700, For 1 dose Start: 04-07-2024 warfarin (Coum jay jay) 5 MG tablet Take 1 tablet (5mg) on 04/13 in the evening Take 1.5 tablets (7.5mg) on 04/14 Take 1 tablet (5mg) on 04/15 Follow up with [facility] pharmacy for further dosing 30 tablet [...] sources) Long-term current use of anticoagulant; Translations: [MCFP (current) use of anticoagulants] Onset: 0 03-07-2020 Episodic Other aftercare (3 sources) exterminator (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, [address] PT Coag (PPP) [Time] 34.2 s High 11.7-14.9 [facility] Comment on above: Order Comment: 104.1 Performed By: #### L 100.0500, L500.2500 #### [facility] [address] [place], [address] Protime w/INR Fingerstickon 01-28-2025 INR Coag (PPP) [Relative time] 2.8 {INR} Normal [facility] Comment on above: Result Comment: Crit ical Value > 4.0 Performed By: #### L 100.0500, L500.2500 #### [facility] [address] [place], [address] Protime Coagsen 29.1 SEC High 11.7-14.9 [facility] Comment on above: Performed By: #### L 100.0500, L500.2500 #### [facility] [address] [place], [address] Protime w/INR Fingerstickon 01-25-2025 INR Coag (PPP) [Relative time] 3.4 {INR} Normal [facility] Comment on above: Result Comment: Crit ical Value > 4.0 Performed By: #### L 9200.0000 #### [facility] [address] [place], [address] Protime Coagsen 34.5 SEC High 11.7-14.9 [facility] Comment on above: Performed By: #### L 9200.0000 #### [facility] [address] [place], [address] Prothrombin Time w/INRon INR Coag (PPP) [Relative time] 2.8 {INR} Normal [facility] Comment on above: Order Comment: 104.1 Performed By: #### L 100.0500, L500.2500 #### [facility] [address] [place], [address] PT Coag (PPP) [Time] 30.5 s High 11.7-14.9 [facility] Comment on above: Order Comment: 104.1 Performed By: #### L 100.0500, L500.2500 #### [facility] [address] [place], [address] Prothrombin Time w/INRon INR Coag (PPP) [Relative time] 2.5 {INR} Normal [facility] Comment on above: Order Comment: 104.1 Performed By: #### L 100.0500, L500.2500 #### [facility] [address] [place], [address] PT Coag (PPP) [Time] 27.1 s High 11.7-14.9 [facility] Comment on above: Order Comment: 104.1 Performed By: #### L 100.0500, L500.2500 #### [facility] [address] [place], [address] Prothrombin Time w/INRon INR Coag (PPP) [Relative time] 2.4 {INR} Normal [facility] Comment on above: Order Comment: DID Kareem STRANGE TWICE, BOTH TIMES GOT A 'NO CLOT DETECTED' MESSAGE, SO VA A VENOUS SAMPLE. SPOKE WITH NURSE RIVKA Performed By: #### L 300.3900 #### [facility] [address] [place], [address] PT Coag (PPP) [Time] 26.9 s High 11.7-14.9 [facility] Comment on above: Order Comment: DID F INGDIANATICK TWICE, BOTH TIMES GOT A 'NO CLOT DETECTED' MESSAGE, SO VA A VENOUS SAMPLE. SPOKE WITH NURSE RIVKA Performed By: #### L 300.3900 #### [facility] [address] [place], [address] Protime w/INR Fingerstickon 01-17-2025 INR Coag (PPP) [Relative time] 1.9 {INR} Normal [facility] Comment on above: Result Comment: Crit ical Value > 4.0 Performed By: #### L 9200.0000 #### [facility] [address] [place], [address] Protime Coagsen 20.8 SEC High 11.7-14.9 [facility] Comment on above: Performed By: #### L 9200.0000 #### [facility] [address] [place], [address] Protime w/INR Fingerstickon 01-16-2025 INR Coag (PPP) [Relative time] 1.5 {INR} Normal [facility] Comment on above: Result Comment: Crit ical Value > 4.0 Performed By: #### L 9200.0000 #### [facility] [address] [place], [address] Protime Coagsen 17.2 SEC High 11.7-14.9 [facility] Comment on above: Performed By: #### L 9200.0000 #### [facility] [address] [place], [address] Prothrombin Time w/INRon INR Coag (PPP) [Relative time] 1.2 {INR} Normal [facility] Comment on above: Performed By: #### L 100.0500, L500.2500 #### [facility] [address] [place], [address] PT Coag (PPP) [Time] 15.4 s High 11.7-14.9 [facility] Comment on above: Performed By: #### L 100.0500, L500.2500 #### [facility] [address] [place], [address] 36on 01-08-2025 36 Normal [facility] Basic Metabolic Profile (BMP )on 01-07-2025 BUN/CRE 17.7 RATIO Normal 10-20 [facility] Comment on above: Order Comment: 104.1 Performed By: #### L 500.2500, L100.0500 #### [facility] [address] [place], [address] Calcium [Mass/Vol] 9.1 mg/dL Normal 7.6-11.0 [facility] Comment on above: Order Comment: 104.1 Performed By: #### L 500.2500, L100.0500 #### [facility] [address] [place], [address] Chloride [Moles/Vol] 109 mmol/L High 98-108 [facility] Comment on above: Order Comment: 104.1 Performed By: #### L 500.2500, L100.0500 #### [facility] [address] [place], [address] CO2 [Moles/Vol] 19.7 mmol/L Low 21.0-32.0 [facility] Comment on above: Order Comment: 104.1 Performed By: #### L 500.2500, L100.0500 #### [facility] [address] [place], [address] Creatinine [Mass/Vol] 1.15 mg/dL Normal 0.70-1.20 [facility] Comment on above: Order Comment: 104.1 Performed By: #### L 500.2500, L100.0500 #### [facility] [address] [place], [address] GAP 10 Normal 5-15 [facility] Comment on above: Order Comment: 104.1 Performed By: #### L 500.2500, L100.0500 #### [facility] [address] [place], [address] GFR/1.73 sq M.predicted among non-blacks MDRD (S/P/Bld) [Vol rate/Area] 47 mL/min/{1.73_m2} Low >60 [facility] Comment on above: Order Comment: 104.1 Result Comment: mL/m in/1.73m2 CKD-EPI Creatinine Equation (2020) Performed By: #### L 500.2500, L100.0500 #### [facility] [address] [place], [address] Glucose [Mass/Vol] 87 mg/dL Normal 70-99 [facility] Comment on above: Order Comment: 104.1 Performed By: #### L 500.2500, L100.0500 #### [facility] [address] [place], [address] Potassium [Moles/Vol] 5.0 mmol/L Normal 3.3-5.1 [facility] Comment on above: Order Comment: 104.1 Performed By: #### L 500.2500, L100.0500 #### [facility] [address] [place], [address] Sodium [Moles/Vol] 138 mmol/L Normal 133-145 [facility] Comment on above: Order Comment: 104.1 Performed By: #### L 500.2500, L100.0500 #### [facility] [address] [place], [address] Urea nitrogen [Mass/Vol] 20 mg/dL High 4-19 [facility] Comment on above: Order Comment: 104.1 Performed By: #### L 500.2500, L100.0500 #### [facility] [address] [place], [address] CBC-Complete Blood Cnt No Di ffon 01-07-2025 Erythrocyte distribution width (RBC) [Ratio] 16.5 % High 11.6-14.6 [facility] Comment on above: Order Comment: 104.1 Performed By: #### L 500.2500, L100.0500 #### [facility] [address] [place], [address] Hematocrit (Bld) [Volume fraction] 30.4 % Low 37-47 [facility] Comment on above: Order Comment: 104.1 Performed By: #### L 500.2500, L100.0500 #### [facility] [address] [place], [address] Hemoglobin (Bld) [Mass/Vol] 9.8 g/dL Low 12.0-15.0 [facility] Comment on above: Order Comment: 104.1 Performed By: #### L 500.2500, L100.0500 #### [facility] [address] [place], [address] MCH (RBC) [Entitic mass] 29.9 pg Normal 27.0-32.0 [facility] Comment on above: Order Comment: 104.1 Performed By: #### L 500.2500, L100.0500 #### [facility] [address] [place], [address] MCHC (RBC) [Mass/Vol] 32.2 g/dL Normal 32-36 [facility] Comment on above: Order Comment: 104.1 Performed By: #### L 500.2500, L100.0500 #### [facility] [address] [place], [address] MCV (RBC) [Entitic vol] 92.7 fL Normal 81-99 [facility] Comment on above: Order Comment: 104.1 Performed By: #### L 500.2500, L100.0500 #### [facility] [address] [place], [address] Platelet mean volume (Bld) [Entitic vol] 10.0 fL Normal 6.2-12.0 [facility] Comment on above: Order Comment: 104.1 Performed By: #### L 500.2500, L100.0500 #### [facility] [address] [place], [address] Platelets (Bld) [#/Vol] 254 10*3/uL Normal 150-450 [facility] Comment on above: Order Comment: 104.1 Performed By: #### L 500.2500, L100.0500 #### [facility] [address] [place], [address] RBC (Bld) [#/Vol] 3.28 10*6/uL Low 4.2-5.4 [facility] Comment on above: Order Comment: 104.1 Performed By: #### L 500.2500, L100.0500 #### [facility] [address] [place], [address] RDW SD 55.9 fl High 35.1-43.9 [facility] Comment on above: Order Comment: 104.1 Performed By: #### L 500.2500, L100.0500 #### [facility] [address] [place], [address] WBC (Bld) [#/Vol] 4.5 10*3/uL Normal 4.4-11.0 [facility] Comment on above: Order Comment: 104.1 Performed By: #### L 500.2500, L100.0500 #### [facility] [address] [place], [address] 36on 01-04-2025 36 Normal [facility] 36 Normal [facility] Progress Noteon 12-24-2024 Progress Note Normal [facility] No Panel Informationon 12-13 Left MICHELLE 0.71 [facility] Left arm BP 121 mmHg [facility] Left Dist Outflow EDV 6.5 cm/s [facility] Left Dist Outflow PSV 51.5 cm/s [facility] Left dorsalis pedis BP 67 mmHg [facility] Left Graft 1 Proximal Popliteal Stent [facility] Left Inflow Artery EDV 8.5 cm/s [facility] Left Inflow Artery PSV 46.5 cm/s [facility] Left Mid Outflow EDV 6.5 cm/s [facility] Left Mid Outflow PSV 58.1 cm/s [facility] Left Outflow Vessel EDV 9.8 cm/s S [facility] Left Outflow Vessel PSV 89.9 cm/s S [facility] Left posterior tibial 94 mmHg [facility] Left Prox Outflow EDV 6.5 cm/s [facility] Left Prox Outflow PSV 51.5 cm/s [facility] Right MICHELLE 0.96 [facility] Right arm BP 133 mmHg [facility] Right YARITZA dist PSV 53.6 cm/s [facility] Right BLASTING CONTRACT MAN dist PSV 144.6 cm/s [facility] Right BLASTING CONTRACT MAN mid AP diameter 0.92 cm [facility] Right BLASTING CONTRACT MAN mid TR diameter 0.89 cm [facility] Right BLASTING CONTRACT MAN prox PSV 133.7 cm/s [facility] Right Dist Outflow EDV 0 cm/s [facility] Right Dist Outflow PSV 45.3 cm/s [facility] Right dorsalis pedis BP 107 mmHg [facility] Right EIA dist PSV 144.6 cm/s [facility] Right Graft 1 Distal SFA Stent [facility] Right Inflow Artery EDV 4.6 cm/s S [facility] Right Inflow Artery PSV 100.7 cm/s S [facility] Right Mid Outflow EDV 2.3 cm/s [facility] Right Mid Outflow PSV 66.2 cm/s [facility] Right Outflow Vessel EDV 2.3 cm/s [facility] Right Outflow Vessel PSV 56.4 cm/s [facility] Right PFA AP diameter 0.59 cm [facility] Right PFA TR diameter 0.73 cm [...] PSV 68.6 cm/s [facility] Right FOUNTAIN ATTENDANT dist PSV 48.1 cm/s [facility] Right [...] Right SFA proximal TR diameter 0.61 cm [facility] Stents in SFA and popliteal artery [...] CPACS Progress Noteon 12-05-2024 Progress Note Normal [facility] 36on 11-23-2024 36 Normal [facility] 36 Normal [facility] 36 Normal [facility] [id number] 11-22-2024 [id number] Normal [facility] Anesthesia Noteon 11-22-2024 Anesthesia Note Normal [facility] No Panel Informationon 11-22 There is no interpretation needed for this exam. IMAGING Nursing Noteon 11-22-2024 Nursing Note Patient arrived on unit. Name and date verified. Attached to monitors. Vital signs stable. Normal [facility] Op Noteon 11-22-2024 Op Note Normal [facility] Progress Noteon 11-22-2024 Progress Note POA called to bedsid e and discharge instructions reviewed. Groin site remains intact and LE distal pulses unchanged via assessment with doppler. 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 Made aware of patient's orders to lay flat until 1325. Daughter in law stated that she will call care facility later to make arrangements for transportation back. Normal [facility] Anesthesia Noteon 11-21-2024 Anesthesia Note Normal [facility] Basic Metabolic Profile (BMP )on 11-15-2024 BUN/CRE 18.3 RATIO Normal 10-20 [facility] Comment on above: Order Comment: 104.1 Performed By: #### L 100.0500, L500.2500 #### [facility] [address] [place], [address] Calcium [Mass/Vol] 9.0 mg/dL Normal 7.6-11.0 [facility] Comment on above: Order Comment: 104.1 Performed By: #### L 100.0500, L500.2500 #### [facility] [address] [place], [address] Chloride [Moles/Vol] 108 mmol/L Normal 98-108 [facility] Comment on above: Order Comment: 104.1 Performed By: #### L 100.0500, L500.2500 #### [facility] [address] [place], [address] CO2 [Moles/Vol] 22.1 mmol/L Normal 21.0-32.0 [facility] Comment on above: Order Comment: 104.1 Performed By: #### L 100.0500, L500.2500 #### [facility] [address] [place], [address] Creatinine [Mass/Vol] 1.03 mg/dL Normal 0.70-1.20 [facility] Comment on above: Order Comment: 104.1 Performed By: #### L 100.0500, L500.2500 #### [facility] [address] [place], [address] GAP 9 Normal 5-15 [facility] Comment on above: Order Comment: 104.1 Performed By: #### L 100.0500, L500.2500 #### [facility] [address] [place], [address] GFR/1.73 sq M.predicted among non-blacks MDRD (S/P/Bld) [Vol rate/Area] 53 mL/min/{1.73_m2} Low >60 [facility] Comment on above: Order Comment: 104.1 Result Comment: mL/m in/1.73m2 CKD-EPI Creatinine Equation (2020) Performed By: #### L 100.0500, L500.2500 #### [facility] [address] [place], [address] Glucose [Mass/Vol] 91 mg/dL Normal 70-99 [facility] Comment on above: Order Comment: 104.1 Performed By: #### L 100.0500, L500.2500 #### [facility] [address] [place], [address] Potassium [Moles/Vol] 4.8 mmol/L Normal 3.3-5.1 [facility] Comment on above: Order Comment: 104.1 Performed By: #### L 100.0500, L500.2500 #### [facility] [address] [place], [address] Sodium [Moles/Vol] 138 mmol/L Normal 133-145 [facility] Comment on above: Order Comment: 104.1 Performed By: #### L 100.0500, L500.2500 #### [facility] [address] [place], [address] Urea nitrogen [Mass/Vol] 19 mg/dL Normal 4-19 [facility] Comment on above: Order Comment: 104.1 Performed By: #### L 100.0500, L500.2500 #### [facility] [address] [place], [address] CBC W/Diff, Automatedon 05-0 1-202 Absolute Lymph 1.77 X10 3/uL Normal 0.83-4.51 [facility] Comment on above: Order Comment: 104.1 Performed By: #### L 100.0500, L500.2500 #### [facility] [address] [place], [address] Absolute Neut 3.2 X10 3/uL Normal 2.0-7.7 [facility] Comment on above: Order Comment: 104.1 Performed By: #### L 100.0500, L500.2500 #### [facility] [address] [place], [address] Basophils/100 WBC (Bld) 0.7 % Normal 0-1 [facility] Comment on above: Order Comment: 104.1 Performed By: #### L 100.0500, L500.2500 #### [facility] [address] [place], [address] Eosinophils/100 WBC (Bld) 2.9 % Normal 0-5 [facility] Comment on above: Order Comment: 104.1 Performed By: #### L 100.0500, L500.2500 #### [facility] [address] [place], [address] Erythrocyte distribution width (RBC) [Ratio] 18.8 % High 11.6-14.6 [facility] Comment on above: Order Comment: 104.1 Performed By: #### L 100.0500, L500.2500 #### [facility] [address] [place], [address] Hematocrit (Bld) [Volume fraction] 30.9 % Low 37-47 [facility] Comment on above: Order Comment: 104.1 Performed By: #### L 100.0500, L500.2500 #### [facility] [address] [place], [address] Hemoglobin (Bld) [Mass/Vol] 9.8 g/dL Low 12.0-15.0 [facility] Comment on above: Order Comment: 104.1 Performed By: #### L 100.0500, L500.2500 #### [facility] [address] [place], [address] IG% 0.200 Normal 0.0-0.9 [facility] Comment on above: Order Comment: 104.1 Result Comment: IG% - Immature Granulocytes (promyelocytes, myelocytes and metamyelocytes) > 1% indicates that a LEFT SHIFT is Present. Performed By: #### L 100.0500, L500.2500 #### [facility] [address] [place], [address] Lymphocytes/100 WBC (Bld) 30.3 % Normal 19-41 [facility] Comment on above: Order Comment: 104.1 Performed By: #### L 100.0500, L500.2500 #### [facility] [address] [place], [address] MCH (RBC) [Entitic mass] 28.4 pg Normal 27.0-32.0 [facility] Comment on above: Order Comment: 104.1 Performed By: #### L 100.0500, L500.2500 #### [facility] [address] [place], [address] MCHC (RBC) [Mass/Vol] 31.7 g/dL Low 32-36 [facility] Comment on above: Order Comment: 104.1 Performed By: #### L 100.0500, L500.2500 #### [facility] [address] [place], [address] MCV (RBC) [Entitic vol] 89.6 fL Normal 81-99 [facility] Comment on above: Order Comment: 104.1 Performed By: #### L 100.0500, L500.2500 #### [facility] [address] [place], [address] Monocytes/100 WBC (Bld) 11.3 % High 0-10 [facility] Comment on above: Order Comment: 104.1 Performed By: #### L 100.0500, L500.2500 #### [facility] [address] [place], [address] Neutrophils/100 WBC (Bld) 54.6 % Normal 47-70 [facility] Comment on above: Order Comment: 104.1 Performed By: #### L 100.0500, L500.2500 #### [facility] [address] [place], [address] Nucleated RBC (Bld) [#/Vol] 0 10*3/uL Normal 0-5 [facility] Comment on above: Order Comment: 104.1 Performed By: #### L 100.0500, L500.2500 #### [facility] [address] [place], [address] Platelet mean volume (Bld) [Entitic vol] 10.2 fL Normal 6.2-12.0 [facility] Comment on above: Order Comment: 104.1 Performed By: #### L 100.0500, L500.2500 #### [facility] [address] [place], [address] Platelets (Bld) [#/Vol] 303 10*3/uL Normal 150-450 [facility] Comment on above: Order Comment: 104.1 Performed By: #### L 100.0500, L500.2500 #### [facility] [address] [place], [address] RBC (Bld) [#/Vol] 3.45 10*6/uL Low 4.2-5.4 [facility] Comment on above: Order Comment: 104.1 Performed By: #### L 100.0500, L500.2500 #### [facility] [address] [place], [address] RDW SD 61.8 fl High 35.1-43.9 [facility] Comment on above: Order Comment: 104.1 Performed By: #### L 100.0500, L500.2500 #### [facility] [address] [place], [address] WBC (Bld) [#/Vol] 5.8 10*3/uL Normal 4.4-11.0 [facility] Comment on above: Order Comment: 104.1 Performed By: #### L 100.0500, L500.2500 #### [facility] [address] [place], [address] 36on 11-14-2024 36 Normal [facility] 36on 11-08-2024 36 Fidel called to state that she spoke with Mel and she would like to proceed with angio. Normal [facility] Progress Noteon 11-05-2024 Progress Note Normal [facility] Anion gap in Serum or Plasma Ordered By: Megan Montoya on 10-08-2024 Anion gap [Moles/Vol] 12 mmol/L 5-15 [facility] BUN/creatinine ratioOrdered By: Megan Montoya on 03-24-2025 Urea nitrogen/Creatinine [Mass ratio] 16.5 mg/mg 10-20 [facility] Basic Metabolic Profile (BMP )on 10-08-2024 BUN/CRE 16.5 RATIO Normal - [facility] Comment on above: Order Comment: 104.1 Performed By: #### L 100.0500, L500.2500 #### [facility] [address] [place], [address] Calcium [Mass/Vol] 9.0 mg/dL Normal 7.6-11.0 [facility] Comment on above: Order Comment: 104.1 Performed By: #### L 100.0500, L500.2500 #### [facility] [address] [place], [address] Chloride [Moles/Vol] 106 mmol/L Normal 98-108 [facility] Comment on above: Order Comment: 104.1 Performed By: #### L 100.0500, L500.2500 #### [facility] [address] [place], [address] CO2 [Moles/Vol] 20.0 mmol/L Low 21.0-32.0 [facility] Comment on above: Order Comment: 104.1 Performed By: #### L 100.0500, L500.2500 #### [facility] [address] [place], [address] Creatinine [Mass/Vol] 1.05 mg/dL Normal 0.70-1.20 [facility] Comment on above: Order Comment: 104.1 Performed By: #### L 100.0500, L500.2500 #### [facility] [address] [place], [address] GAP 12 Normal 5-15 [facility] Comment on above: Order Comment: 104.1 Performed By: #### L 100.0500, L500.2500 #### [facility] [address] [place], [address] GFR/1.73 sq M.predicted among non-blacks MDRD (S/P/Bld) [Vol rate/Area] 52 mL/min/{1.73_m2} Low >60 [facility] Comment on above: Order Comment: 104.1 Result Comment: mL/m in/1.73m2 CKD-EPI Creatinine Equation (2020) Performed By: #### L 100.0500, L500.2500 #### [facility] [address] [place], [address] Glucose [Mass/Vol] 98 mg/dL Normal 70-99 [facility] Comment on above: Order Comment: 104.1 Performed By: #### L 100.0500, L500.2500 #### [facility] [address] [place], [address] Potassium [Moles/Vol] 4.3 mmol/L Normal 3.3-5.1 [facility] Comment on above: Order Comment: 104.1 Result Comment: Hemo lysis present, Results??could be affected. ?? Performed By: #### L 100.0500, L500.2500 #### [facility] [address] [place], [address] Sodium [Moles/Vol] 137 mmol/L Normal 133-145 [facility] Comment on above: Order Comment: 104.1 Performed By: #### L 100.0500, L500.2500 #### [facility] [address] [place], [address] Urea nitrogen [Mass/Vol] 17 mg/dL Normal 4-19 [facility] Comment on above: Order Comment: 104.1 Performed By: #### L 100.0500, L500.2500 #### [facility] [address] [place], [address] CBC-Complete Blood Cnt No Di ffon 10-08-2024 Erythrocyte distribution width (RBC) [Ratio] 17.5 % High 11.6-14.6 [facility] Comment on above: Order Comment: 104.1 Performed By: #### L 100.0500, L500.2500 #### [facility] [address] [place], [address] Hematocrit (Bld) [Volume fraction] 30.4 % Low 37-47 [facility] Comment on above: Order Comment: 104.1 Performed By: #### L 100.0500, L500.2500 #### [facility] [address] [place], [address] Hemoglobin (Bld) [Mass/Vol] 9.6 g/dL Low 12.0-15.0 [facility] Comment on above: Order Comment: 104.1 Performed By: #### L 100.0500, L500.2500 #### [facility] [address] [place], [address] MCH (RBC) [Entitic mass] 27.4 pg Normal 27.0-32.0 [facility] Comment on above: Order Comment: 104.1 Performed By: #### L 100.0500, L500.2500 #### [facility] [address] [place], [address] MCHC (RBC) [Mass/Vol] 31.6 g/dL Low 32-36 [facility] Comment on above: Order Comment: 104.1 Performed By: #### L 100.0500, L500.2500 #### [facility] [address] [place], [address] MCV (RBC) [Entitic vol] 86.9 fL Normal 81-99 [facility] Comment on above: Order Comment: 104.1 Performed By: #### L 100.0500, L500.2500 #### [facility] [address] [place], [address] Platelet mean volume (Bld) [Entitic vol] 10.3 fL Normal 6.2-12.0 [facility] Comment on above: Order Comment: 104.1 Performed By: #### L 100.0500, L500.2500 #### [facility] [address] [place], [address] Platelets (Bld) [#/Vol] 408 10*3/uL Normal 150-450 [facility] Comment on above: Order Comment: 104.1 Performed By: #### L 100.0500, L500.2500 #### [facility] [address] [place], [address] RBC (Bld) [#/Vol] 3.50 10*6/uL Low 4.2-5.4 [facility] Comment on above: Order Comment: 104.1 Performed By: #### L 100.0500, L500.2500 #### [facility] [address] [place], [address] RDW SD 56.2 fl High 35.1-43.9 [facility] Comment on above: Order Comment: 104.1 Performed By: #### L 100.0500, L500.2500 #### [facility] [address] [place], [address] WBC (Bld) [#/Vol] 6.4 10*3/uL Normal 4.4-11.0 [facility] Comment on above: Order Comment: 104.1 Performed By: #### L 100.0500, L500.2500 #### [facility] [address] [place], [address] Carbon dioxide, total [Moles /volume] in Central venous bloodOrdered By: Megan Montoya on 10-08-2024 CO2 [Moles/Vol] 20.0 mmol/L Low 21.0-32.0 [facility] Chloride assayOrdered By: Johnathan Guzman on 10-08-2024 Chloride [Moles/Vol] 106 mmol/L 98-108 [facility] Erythrocyte distribution wid th ratioOrdered By: Megan Montoya on 10-08-2024 Erythrocyte distribution width (RBC) [Ratio] 17.5 % High 11.6-14.6 [facility] Erythrocyte distribution wid th standard deviationOrdered By: Megan Montoya on 10-08-2024 Erythrocyte distribution width (RBC) [Entitic vol] 56.2 fL High 35.1-43.9 [facility] GFR/1.73 sq M.predicted gricelda g non-blacks MDRD (S/P/Bld) [Vol rate/Area]Ordered By: Megan Montoya on 10-08-2024 Estimated GFR (MDRD) Non-Af Amer 52 Low >60 [facility] Comment on above: mL/min/1.73m2 CKD-EP I Creatinine Equation (2020) Hematocrit Auto (Bld) [Volum e fraction]Ordered By: Megan Montoya on 10-08-2024 Hematocrit (Bld) [Volume fraction] 30.4 % Low 37-47 [facility] Hemoglobin measurementOrdere d By: Megan oMntoya on 10-08-2024 Hemoglobin (Bld) [Mass/Vol] 9.6 g/dL Low 12.0-15.0 [facility] MCV (mean corpuscular volume ) determinationOrdered By: Megan Montoya on 10-08-2024 MCV (RBC) [Entitic vol] 86.9 fL 81-99 [facility] Mean corpuscular hemoglobin (MCH) determinationOrdered By: Megan Montoya on 10-08-2024 MCH (RBC) [Entitic mass] 27.4 pg 27.0-32.0 [facility] Mean corpuscular hemoglobin concentration (MCHC) determinationOrdered By: Megan Montoya on 10-08-2024 MCHC (RBC) [Mass/Vol] 31.6 g/dL Low 32-36 [facility] Mean platelet volume determi nationOrdered By: Megan Montoya on 10-08-2024 Platelet mean volume (Bld) [Entitic vol] 10.3 fL 6.2-12.0 [facility] Platelet countOrdered By: Johnathan Guzman on 10-08-2024 Platelets (Bld) [#/Vol] 408 10*3/uL 150-450 [facility] Potassium (Unsp spec) [Mass/ Vol]Ordered By: Megan Montoya on 10-08-2024 Potassium [Moles/Vol] 4.3 mmol/L 3.3-5.1 [facility] Comment on above: Hemolysis present, R esults could be affected. RBC Auto (Bld) [#/Vol]Ordere d By: Megan Montoya on 10-08-2024 RBC (Bld) [#/Vol] 3.50 10*6/uL Low 4.2-5.4 [facility] Serum creatinine measurement (mass/volume)Ordered By: Megan Montoya on 10-08-2024 Creatinine [Mass/Vol] 1.05 mg/dL 0.70-1.20 [facility] Serum glucose measurement (m ass/volume)Ordered By: Megan Montoya on 10-08-2024 Glucose [Mass/Vol] 98 mg/dL 70-99 [facility] Serum or plasma calcium reyna urement (mass/volume)Ordered By: Megan Montoya on 10-08-2024 Calcium [Mass/Vol] 9.0 mg/dL 7.6-11.0 [facility] Serum or plasma urea nitroge n measurement (mass/volume)Ordered By: Megan Montoya on 10-08-2024 Urea nitrogen [Mass/Vol] 17 mg/dL 4-19 [facility] Sodium levelOrdered By: Juan C Montoya on 10-08-2024 Sodium [Moles/Vol] 137 mmol/L 133-145 [facility] White blood cell (WBC) count Ordered By: Megan Montoya on 10-08-2024 WBC (Bld) [#/Vol] 6.4 10*3/uL 4.4-11.0 [facility] BSCAN OD (RIGHT EYE)on 10-[address] [facility] Radiology Study observation (narrative) Amarjit [facility] BUN/creatinine ratioOrdered By: Megan Montoya on 09-17-2024 Urea nitrogen/Creatinine [Mass ratio] 15.7 mg/mg 10-20 [facility] Basic Metabolic Profile (BMP )on 09-17-2024 Anion gap [Moles/Vol] 10 mmol/L Normal 5-15 [facility] Comment on above: Order Comment: 104.1 Performed By: #### L 100.0500, L500.2500 #### [facility] [address] [place], [address] BUN/CRE 15.7 RATIO Normal 10-20 [facility] Comment on above: Order Comment: 104.1 Performed By: #### L 100.0500, L500.2500 #### [facility] [address] [place], [address] Calcium [Mass/Vol] 9.0 mg/dL Normal 7.6-11.0 [facility] Comment on above: Order Comment: 104.1 Performed By: #### L 100.0500, L500.2500 #### [facility] [address] [place], [address] Chloride [Moles/Vol] 108 mmol/L Normal 96-108 [facility] Comment on above: Order Comment: 104.1 Performed By: #### L 100.0500, L500.2500 #### [facility] [address] [place], [address] CO2 [Moles/Vol] 21.6 mmol/L Low 22.0-29.0 [facility] Comment on above: Order Comment: 104.1 Performed By: #### L 100.0500, L500.2500 #### [facility] [address] [place], [address] Creatinine [Mass/Vol] 1.03 mg/dL Normal 0.70-1.20 [facility] Comment on above: Order Comment: 104.1 Performed By: #### L 100.0500, L500.2500 #### [facility] [address] [place], [address] GFR/1.73 sq M.predicted among non-blacks MDRD (S/P/Bld) [Vol rate/Area] 54 mL/min/{1.73_m2} Low >60 [facility] Comment on above: Order Comment: 104.1 Result Comment: mL/m in/1.73m2 CKD-EPI Creatinine Equation (2020) Performed By: #### L 100.0500, L500.2500 #### [facility] [address] [place], [address] Glucose [Mass/Vol] 90 mg/dL Normal 70-99 [facility] Comment on above: Order Comment: 104.1 Performed By: #### L 100.0500, L500.2500 #### [facility] [address] [place], [address] Potassium [Moles/Vol] 4.5 mmol/L Normal 3.3-5.1 [facility] Comment on above: Order Comment: 104.1 Performed By: #### L 100.0500, L500.2500 #### [facility] [address] [place], [address] Sodium [Moles/Vol] 140 mmol/L Normal 133-145 [facility] Comment on above: Order Comment: 104.1 Performed By: #### L 100.0500, L500.2500 #### [facility] [address] [place], [address] Urea nitrogen [Mass/Vol] 16 mg/dL Normal 4-19 [facility] Comment on above: Order Comment: 104.1 Performed By: #### L 100.0500, L500.2500 #### [facility] [address] [place], [address] Carbon dioxide measurementOr dered By: Megan Montoya on 09-17-2024 CO2 [Moles/Vol] 21.6 mmol/L Low 22.0-29.0 [facility] Chloride measurementOrdered By: Megan Montoya on 09-17-2024 Chloride [Moles/Vol] 108 mmol/L 96-108 [facility] GFR/1.73 sq M.predicted gricelda g non-blacks MDRD (S/P/Bld) [Vol rate/Area]Ordered By: Megan Montoya on 09-17-2024 Estimated GFR (MDRD) Non-Af Amer 54 Low >60 [facility] Comment on above: mL/min/1.73m2 CKD-EP I Creatinine Equation (2020) Serum creatinine measurement (mass/volume)Ordered By: Megan Montoya on 09-17-2024 Creatinine [Mass/Vol] 1.03 mg/dL 0.70-1.20 [facility] Serum glucose measurement (m ass/volume)Ordered By: Megan Montoya on 09-17-2024 Glucose [Mass/Vol] 90 mg/dL 70-99 [facility] Serum or plasma anion gap de termination (moles/volume)Ordered By: Megan Montoya on 09-17-2024 Anion gap [Moles/Vol] 10 mmol/L 5-15 [facility] Serum or plasma calcium reyna urement (mass/volume)Ordered By: Megan Montoya on 09-17-2024 Calcium [Mass/Vol] 9.0 mg/dL 7.6-11.0 [facility] Serum or plasma potassium me asurementOrdered By: Megan Montoya on 09-17-2024 Potassium [Moles/Vol] 4.5 mmol/L 3.3-5.1 [facility] Serum or plasma sodium measu rement (moles/volume)Ordered By: Megan Montoya on 09-17-2024 Sodium [Moles/Vol] 140 mmol/L 133-145 [facility] Serum or plasma urea nitroge n measurement (mass/volume)Ordered By: Megan Montoya on 09-17-2024 Urea nitrogen [Mass/Vol] 16 mg/dL 4-19 [facility] Basic Metabolic Profile (BMP )on 09-10-2024 BUN/CRE 17.9 RATIO Normal 10-20 [facility] Comment on above: Order Comment: 104.1 Performed By: #### L 100.0500, L500.2500 #### [facility] [address] [place], [address] CA,Total 9.0 mg/dL Normal 8.5-10.1 [facility] Comment on above: Order Comment: 104.1 Performed By: #### L 100.0500, L500.2500 #### [facility] [address] [place], [address] Chloride [Moles/Vol] 108 mmol/L High 98-107 [facility] Comment on above: Order Comment: 104.1 Performed By: #### L 100.0500, L500.2500 #### [facility] [address] [place], [address] CO2 [Moles/Vol] 24.0 mmol/L Normal 21.0-32.0 [facility] Comment on above: Order Comment: 104.1 Performed By: #### L 100.0500, L500.2500 #### [facility] [address] [place], [address] Creatinine [Mass/Vol] 1.23 mg/dL High 0.55-1.02 [facility] Comment on above: Order Comment: 104.1 Result Comment: The validity of the calculated GFR GFRAA in patients over 70 years has not been determined. Clinical correlation is essential. Performed By: #### L 100.0500, L500.2500 #### [facility] [address] [place], [address] EST GFR - AA 53 mL/min Low >60 [facility] Comment on above: Order Comment: 104.1 Result Comment: Afri can Fijian GFR Calc Performed By: #### L 100.0500, L500.2500 #### [facility] [address] [place], [address] GAP 5 Normal 5-15 [facility] Comment on above: Order Comment: 104.1 Performed By: #### L 100.0500, L500.2500 #### [facility] [address] [place], [address] GFR/1.73 sq M.predicted among non-blacks MDRD (S/P/Bld) [Vol rate/Area] 44 mL/min/{1.73_m2} Low >60 [facility] Comment on above: Order Comment: 104.1 Result Comment: Non- GFR Calc Performed By: #### L 100.0500, L500.2500 #### [facility] [address] [place], [address] Glucose [Mass/Vol] 98 mg/dL Normal 74-106 [facility] Comment on above: Order Comment: 104.1 Performed By: #### L 100.0500, L500.2500 #### [facility] [address] [place], [address] Potassium [Moles/Vol] 4.5 mmol/L Normal 3.5-5.1 [facility] Comment on above: Order Comment: 104.1 Performed By: #### L 100.0500, L500.2500 #### [facility] [address] [place], [address] Sodium [Moles/Vol] 137 mmol/L Normal 136-145 [facility] Comment on above: Order Comment: 104.1 Performed By: #### L 100.0500, L500.2500 #### [facility] [address] [place], [address] Urea nitrogen [Mass/Vol] 22 mg/dL High 7-18 [facility] Comment on above: Order Comment: 104.1 Performed By: #### L 100.0500, L500.2500 #### [facility] [address] [place], [address] Blood urea nitrogen (BUN)/cr eatinine ratioOrdered By: Megan Montoya on 09-10-2024 Urea nitrogen/Creatinine [Mass ratio] 17.9 mg/mg 10-20 [facility] CBC-Complete Blood Cnt No Di ffon 09-10-2024 Erythrocyte distribution width (RBC) [Ratio] 17.8 % High 11.6-14.6 [facility] Comment on above: Order Comment: 104.1 Performed By: #### L 100.0500, L500.2500 #### [facility] [address] [place], [address] Hematocrit (Bld) [Volume fraction] 31.9 % Low 37-47 [facility] Comment on above: Order Comment: 104.1 Performed By: #### L 100.0500, L500.2500 #### [facility] [address] [place], [address] Hemoglobin (Bld) [Mass/Vol] 9.7 g/dL Low 12.0-15.0 [facility] Comment on above: Order Comment: 104.1 Performed By: #### L 100.0500, L500.2500 #### [facility] [address] [place], [address] MCH (RBC) [Entitic mass] 26.1 pg Low 27.0-32.0 [facility] Comment on above: Order Comment: 104.1 Performed By: #### L 100.0500, L500.2500 #### [facility] [address] [place], [address] MCHC (RBC) [Mass/Vol] 30.4 g/dL Low 32-36 [facility] Comment on above: Order Comment: 104.1 Performed By: #### L 100.0500, L500.2500 #### [facility] [address] [place], [address] MCV (RBC) [Entitic vol] 85.8 fL Normal 81-99 [facility] Comment on above: Order Comment: 104.1 Performed By: #### L 100.0500, L500.2500 #### [facility] [address] [place], [address] Platelet mean volume (Bld) [Entitic vol] 9.5 fL Normal 6.2-12.0 [facility] Comment on above: Order Comment: 104.1 Performed By: #### L 100.0500, L500.2500 #### [facility] [address] [place], [address] Platelets (Bld) [#/Vol] 485 10*3/uL High 150-450 [facility] Comment on above: Order Comment: 104.1 Performed By: #### L 100.0500, L500.2500 #### [facility] [address] [place], [address] RBC (Bld) [#/Vol] 3.72 10*6/uL Low 4.2-5.4 [facility] Comment on above: Order Comment: 104.1 Performed By: #### L 100.0500, L500.2500 #### [facility] [address] [place], [address] RDW SD 55.2 fl High 35.1-43.9 [facility] Comment on above: Order Comment: 104.1 Performed By: #### L 100.0500, L500.2500 #### [facility] [address] [place], [address] WBC (Bld) [#/Vol] 7.7 10*3/uL Normal 4.4-11.0 [facility] Comment on above: Order Comment: 104.1 Performed By: #### L 100.0500, L500.2500 #### [facility] [address] [place], [address] Carbon dioxide measurementOr dered By: Megan Montoya on 09-10-2024 CO2 [Moles/Vol] 24.0 mmol/L 21.0-32.0 [facility] Chloride measurementOrdered By: Megan Montoya on 09-10-2024 Chloride [Moles/Vol] 108 mmol/L High 98-107 [facility] Erythrocyte distribution wid th ratioOrdered By: Megan Montoya on 09-10-2024 Erythrocyte distribution width (RBC) [Ratio] 17.8 % High 11.6-14.6 [facility] Erythrocyte distribution wid th standard deviationOrdered By: Megan Montoya on 09-10-2024 Erythrocyte distribution width (RBC) [Entitic vol] 55.2 fL High 35.1-43.9 [facility] Estimated glomerular filtrat ion rate (GFR) AmericanOrdered By: Megan Montoya on 09-10-2024 Estimated GFR (MDRD) Amer 53 mL/min Low >60 [facility] Comment on above: GFR Calc Glomerular filtration rate ( GFR) estimationOrdered By: Megan Montoya on 09-10-2024 Estimated GFR (MDRD) Non-Af Amer 44 mL/min Low >60 [facility] Comment on above: Non- GFR Calc Glucose measurementOrdered B y: Megan Montoya on 09-10-2024 Glucose [Mass/Vol] 98 mg/dL 74-106 [facility] Hematocrit Auto (Bld) [Volum e fraction]Ordered By: Megan Montoya on 09-10-2024 Hematocrit (Bld) [Volume fraction] 31.9 % Low 37-47 [facility] Hemoglobin measurementOrdere d By: Megan Montoya on 09-10-2024 Hemoglobin (Bld) [Mass/Vol] 9.7 g/dL Low 12.0-15.0 [facility] MCV (mean corpuscular volume ) determinationOrdered By: Megan Montoya on 09-10-2024 MCV (RBC) [Entitic vol] 85.8 fL 81-99 [facility] Mean corpuscular hemoglobin (MCH) determinationOrdered By: Megan Montoya on 09-10-2024 MCH (RBC) [Entitic mass] 26.1 pg Low 27.0-32.0 [facility] Mean corpuscular hemoglobin concentration (MCHC) determinationOrdered By: Megan Montoya on 09-10-2024 MCHC (RBC) [Mass/Vol] 30.4 g/dL Low 32-36 [facility] Mean platelet volume determi nationOrdered By: Megan Montoya on 09-10-2024 Platelet mean volume (Bld) [Entitic vol] 9.5 fL 6.2-12.0 [facility] Platelet countOrdered By: Johnathan Guzman on 09-10-2024 Platelets (Bld) [#/Vol] 485 10*3/uL High 150-450 [facility] Potassium measurementOrdered By: Megan Montoya on 09-10-2024 Potassium [Moles/Vol] 4.5 mmol/L 3.5-5.1 [facility] RBC Auto (Bld) [#/Vol]Ordere d By: Megan Montoya on 09-10-2024 RBC (Bld) [#/Vol] 3.72 10*6/uL Low 4.2-5.4 [facility] Serum anion gap measurementO rdered By: Megan Montoya on 09-10-2024 Anion gap [Moles/Vol] 5 mmol/L 5-15 [facility] Serum or plasma calcium reyna urement (mass/volume)Ordered By: Megan Montoya on 09-10-2024 Calcium [Mass/Vol] 9.0 mg/dL 8.5-10.1 [facility] Serum or plasma creatinine m easurement (mass/volume)Ordered By: Megan Montoya on 09-10-2024 Creatinine [Mass/Vol] 1.23 mg/dL High 0.55-1.02 [facility] Comment on above: The validity of the calculated GFR & GFRAA in patients over 70 years has not been determined. Clinical correlation is essential. Serum or plasma urea nitroge n measurement (mass/volume)Ordered By: Megan Montoya on 09-10-2024 Urea nitrogen [Mass/Vol] 22 mg/dL High 7-18 [facility] Sodium levelOrdered By: Juan C Montoya on 09-10-2024 Sodium [Moles/Vol] 137 mmol/L 136-145 [facility] White blood cell (WBC) count Ordered By: Megan Montoya on 09-10-2024 WBC (Bld) [#/Vol] 7.7 10*3/uL 4.4-11.0 [facility] Urine Cultureon 09-06-2024 URC UNKNOWN METHOD OF COLLECTION Proteus mirabilis [place] Count 50,000-80,000 Klebsiella pneumoniae sp pneum Klebsiella [...] TMP SMX Islt AGATA <=20 S Normal [facility] Comment on above: Performed By: #### L 100.0500, L500.2500 #### [facility] [address] [place], [address] Urinalysis, Completeon 09-04 BACTERIA 4+ /hpf Normal None Seen [facility] Comment on above: Order Comment: 104.1 Performed By: #### L 100.0500, L500.2500 #### [facility] [address] [place], [address] EPI,SQUAMOUS 10-25 SEEN Normal 5-10 [facility] Comment on above: Order Comment: 104.1 Performed By: #### L 100.0500, L500.2500 #### [facility] [address] [place], [address] Mucus Ql (Urine sed) 1+ /hpf Normal [facility] Comment on above: Order Comment: 104.1 Performed By: #### L 100.0500, L500.2500 #### [facility] [address] [place], [address] RBC 5-10 SEEN Normal 0-5 [facility] Comment on above: Order Comment: 104.1 Performed By: #### L 100.0500, L500.2500 #### [facility] [address] [place], [address] WBC 50-100 SEEN Normal 0-5 [facility] Comment on above: Order Comment: 104.1 Performed By: #### L 100.0500, L500.2500 #### [facility] [address] [place], [address] Basic Metabolic Profile (BMP )on 09-03-2024 BUN/CRE 20.7 RATIO High 10-20 [facility] Comment on above: Order Comment: 104.1 Performed By: #### L 100.0500, L500.2500 #### [facility] [address] [place], [address] CA,Total 9.4 mg/dL Normal 8.5-10.1 [facility] Comment on above: Order Comment: 104.1 Performed By: #### L 100.0500, L500.2500 #### [facility] [address] [place], [address] Chloride [Moles/Vol] 109 mmol/L High 98-107 [facility] Comment on above: Order Comment: 104.1 Performed By: #### L 100.0500, L500.2500 #### [facility] [address] [place], [address] CO2 [Moles/Vol] 21.0 mmol/L Normal 21.0-32.0 [facility] Comment on above: Order Comment: 104.1 Performed By: #### L 100.0500, L500.2500 #### [facility] [address] [place], [address] Creatinine [Mass/Vol] 0.92 mg/dL Normal 0.55-1.02 [facility] Comment on above: Order Comment: 104.1 Result Comment: The validity of the calculated GFR GFRAA in patients over 70 years has not been determined. Clinical correlation is essential. Performed By: #### L 100.0500, L500.2500 #### [facility] [address] [place], [address] EST GFR - AA 75 mL/min Normal >60 [facility] Comment on above: Order Comment: 104.1 Result Comment: Afri can Fijian GFR Calc Performed By: #### L 100.0500, L500.2500 #### [facility] [address] [place], [address] GAP 9 Normal 5-15 [facility] Comment on above: Order Comment: 104.1 Performed By: #### L 100.0500, L500.2500 #### [facility] [address] [place], [address] GFR/1.73 sq M.predicted among non-blacks MDRD (S/P/Bld) [Vol rate/Area] 62 mL/min/{1.73_m2} Normal >60 [facility] Comment on above: Order Comment: 104.1 Result Comment: Non- GFR Calc Performed By: #### L 100.0500, L500.2500 #### [facility] [address] [place], [address] Glucose [Mass/Vol] 115 mg/dL High 74-106 [facility] Comment on above: Order Comment: 104.1 Result Comment: Fast ing Glucose result from 100 to 125 mg/dL suggests IMPAIRED HOMEOSTASIS per A.D.A. criteria. Performed By: #### L 100.0500, L500.2500 #### [facility] [address] [place], [address] Potassium [Moles/Vol] 4.4 mmol/L Normal 3.5-5.1 [facility] Comment on above: Order Comment: 104.1 Performed By: #### L 100.0500, L500.2500 #### [facility] [address] [place], [address] Sodium [Moles/Vol] 139 mmol/L Normal 136-145 [facility] Comment on above: Order Comment: 104.1 Performed By: #### L 100.0500, L500.2500 #### [facility] [address] [place], [address] Urea nitrogen [Mass/Vol] 19 mg/dL High 7-18 [facility] Comment on above: Order Comment: 104.1 Performed By: #### L 100.0500, L500.2500 #### [facility] [address] [place], [address] Bilirubin Test strip Ql (U)O rdered By: Megan Montoya on 09-03-2024 Bilirubin Ql (U) Negative Negative [facility] Blood urea nitrogen (BUN)/cr eatinine ratioOrdered By: Megan Montoya on 09-03-2024 Urea nitrogen/Creatinine [Mass ratio] 20.7 mg/mg High 10-20 [facility] CBC-Complete Blood Cnt No Di ffon 09-03-2024 Erythrocyte distribution width (RBC) [Ratio] 17.9 % High 11.6-14.6 [facility] Comment on above: Order Comment: 104.1 Performed By: #### L 100.0500, L500.2500 #### [facility] [address] [place], [address] Hematocrit (Bld) [Volume fraction] 30.8 % Low 37-47 [facility] Comment on above: Order Comment: 104.1 Performed By: #### L 100.0500, L500.2500 #### [facility] [address] [place], [address] Hemoglobin (Bld) [Mass/Vol] 9.5 g/dL Low 12.0-15.0 [facility] Comment on above: Order Comment: 104.1 Performed By: #### L 100.0500, L500.2500 #### [facility] [address] [place], [address] MCH (RBC) [Entitic mass] 25.7 pg Low 27.0-32.0 [facility] Comment on above: Order Comment: 104.1 Performed By: #### L 100.0500, L500.2500 #### [facility] [address] [place], [address] MCHC (RBC) [Mass/Vol] 30.8 g/dL Low 32-36 [facility] Comment on above: Order Comment: 104.1 Performed By: #### L 100.0500, L500.2500 #### [facility] [address] [place], [address] MCV (RBC) [Entitic vol] 83.5 fL Normal 81-99 [facility] Comment on above: Order Comment: 104.1 Performed By: #### L 100.0500, L500.2500 #### [facility] [address] [place], [address] Platelet mean volume (Bld) [Entitic vol] 10.2 fL Normal 6.2-12.0 [facility] Comment on above: Order Comment: 104.1 Performed By: #### L 100.0500, L500.2500 #### [facility] [address] [place], [address] Platelets (Bld) [#/Vol] 431 10*3/uL Normal 150-450 [facility] Comment on above: Order Comment: 104.1 Performed By: #### L 100.0500, L500.2500 #### [facility] [address] [place], [address] RBC (Bld) [#/Vol] 3.69 10*6/uL Low 4.2-5.4 [facility] Comment on above: Order Comment: 104.1 Performed By: #### L 100.0500, L500.2500 #### [facility] [address] [place], [address] RDW SD 54.3 fl High 35.1-43.9 [facility] Comment on above: Order Comment: 104.1 Performed By: #### L 100.0500, L500.2500 #### [facility] [address] [place], [address] WBC (Bld) [#/Vol] 10.6 10*3/uL Normal 4.4-11.0 [facility] Comment on above: Order Comment: 104.1 Performed By: #### L 100.0500, L500.2500 #### [facility] [address] [place], [address] Carbon dioxide measurementOr dered By: Megan Montoya on 09-03-2024 CO2 [Moles/Vol] 21.0 mmol/L 21.0-32.0 [facility] Chloride measurementOrdered By: Megan Montoya on 09-03-2024 Chloride [Moles/Vol] 109 mmol/L High 98-107 [facility] Epithelial cells.squamous LM Ql (Urine sed)Ordered By: Megan Montoya on 09-03-2024 Epithelial cells.squamous LM.HPF (Urine sed) [#/Area] 10 /[HPF] 5-10 [facility] Erythrocyte distribution wid th ratioOrdered By: Megan Montoya on 09-03-2024 Erythrocyte distribution width (RBC) [Ratio] 17.9 % High 11.6-14.6 [facility] Erythrocyte distribution wid th standard deviationOrdered By: Megan Montoya on 09-03-2024 Erythrocyte distribution width (RBC) [Entitic vol] 54.3 fL High 35.1-43.9 [facility] Estimated glomerular filtrat ion rate (GFR) AmericanOrdered By: Megan Montoya on 09-03-2024 Estimated GFR (MDRD) Amer 75 mL/min >60 [facility] Comment on above: GFR Calc Glomerular filtration rate ( GFR) estimationOrdered By: Megan Montoya on 09-03-2024 Estimated GFR (MDRD) Non-Af Amer 62 mL/min >60 [facility] Comment on above: Non- GFR Calc Glucose Ql (U)Ordered By: Johnathan Guzman on 09-03-2024 Urine Glucose (UA) Normal mg/dl Normal [facility] Glucose measurementOrdered B y: Megan Montoya on 09-03-2024 Glucose [Mass/Vol] 115 mg/dL High 74-106 [facility] Comment on above: Fasting Glucose resu lt from 100 to 125 mg/dL suggests IMPAIRED HOMEOSTASIS per A.D.A. criteria. Hematocrit Auto (Bld) [Volum e fraction]Ordered By: Megan Montoya on 09-03-2024 Hematocrit (Bld) [Volume fraction] 30.8 % Low 37-47 [facility] Hemoglobin measurementOrdere d By: Megan Montoya on 09-03-2024 Hemoglobin (Bld) [Mass/Vol] 9.5 g/dL Low 12.0-15.0 [facility] Ketones Test strip Ql (U)Ord ered By: Megan Montoya on 09-03-2024 Ketones Ql (U) 5 mg/dl High Negative [facility] MCV (mean corpuscular volume ) determinationOrdered By: Megan Montoya on 09-03-2024 MCV (RBC) [Entitic vol] 83.5 fL 81-99 [facility] Mean corpuscular hemoglobin (MCH) determinationOrdered By: Megan Montoya on 09-03-2024 MCH (RBC) [Entitic mass] 25.7 pg Low 27.0-32.0 [facility] Mean corpuscular hemoglobin concentration (MCHC) determinationOrdered By: Megan Montoya on 09-03-2024 MCHC (RBC) [Mass/Vol] 30.8 g/dL Low 32-36 [facility] Mean platelet volume determi nationOrdered By: Megan Montoya on 09-03-2024 Platelet mean volume (Bld) [Entitic vol] 10.2 fL 6.2-12.0 [facility] Microscopic analysis of urin e for red blood cells (RBC)Ordered By: Megan Montoya on 09-03-2024 Urine RBC 5-10 SEEN /hpf 0-5 [facility] Mucus LM Ql (Urine sed)Order ed By: Megan Montoya on 09-03-2024 Mucus Ql (Urine sed) 1+ /hpf [facility] Nitrite Test strip Ql (U)Ord ered By: Megan Montoya on 09-03-2024 Nitrite Ql (U) Positive High Negative [facility] Platelet countOrdered By: Johnathan Guzman on 09-03-2024 Platelets (Bld) [#/Vol] 431 10*3/uL 150-450 [facility] Potassium measurementOrdered By: Megan Montoya on 09-03-2024 Potassium [Moles/Vol] 4.4 mmol/L 3.5-5.1 [facility] Protein Test strip Ql (U)Ord ered By: Megan Montoya on 09-03-2024 Protein Ql (U) 100 mg/dl High Negative [facility] RBC Auto (Bld) [#/Vol]Ordere d By: Megan Montoya on 09-03-2024 RBC (Bld) [#/Vol] 3.69 10*6/uL Low 4.2-5.4 [facility] Serum anion gap measurementO rdered By: Megan Montoya on 09-03-2024 Anion gap [Moles/Vol] 9 mmol/L 5-15 [facility] Serum or plasma calcium reyna urement (mass/volume)Ordered By: Megan Montoya on 09-03-2024 Calcium [Mass/Vol] 9.4 mg/dL 8.5-10.1 [facility] Serum or plasma creatinine m easurement (mass/volume)Ordered By: Megan Montoya on 09-03-2024 Creatinine [Mass/Vol] 0.92 mg/dL 0.55-1.02 [facility] Comment on above: The validity of the calculated GFR & GFRAA in patients over 70 years has not been determined. Clinical correlation is essential. Serum or plasma urea nitroge n measurement (mass/volume)Ordered By: Megan Montoya on 09-03-2024 Urea nitrogen [Mass/Vol] 19 mg/dL High 7-18 [facility] Sodium levelOrdered By: Juan C Montoya on 09-03-2024 Sodium [Moles/Vol] 139 mmol/L 136-145 [facility] Urine blood detectionOrdered By: Megan Montoya on 09-03-2024 Urine Occult Blood 150 /ul High Negative [facility] Urine clarityOrdered By: Pola Montoya on 09-03-2024 Clarity (U) Cloudy Clear [facility] Urine color determinationOrd ered By: Megan Montoya on 09-03-2024 Color (U) Yellow Yellow [facility] Urine cultureOrdered By: Pola Montoya on 09-03-2024 Bacteria identified Cx Nom (U) Proteus mirabilis Abnormal [facility] Bacteria identified Cx Nom (U) Klebsiella pneumoniae sp pneum Abnormal [facility] Bacteria identified Cx Nom (U) Proteus mirabilis Abnormal [facility] Bacteria identified Cx Nom (U) Klebsiella pneumoniae sp pneum Abnormal [facility] Urine leukocyte esterase det ection by dipstickOrdered By: Megan Montoya on 09-03-2024 Leukocyte esterase Test strip Ql (U) 500 /ul High Negative [facility] Urine pHOrdered By: Megan jimenez on 09-03-2024 pH (U) 6.0 [pH] 5.0 - 8.0 [facility] Urine sediment bacteria coun t by microscopy (number/high power field)Ordered By: Megan Montoya on 09-03-2024 Bacteria LM.HPF (Urine sed) [#/Area] 4 /[HPF] None Seen [facility] Urine specific gravity measu rementOrdered By: Megan Montoya on 09-03-2024 Specific gravity (U) [Rel density] 1.020 1.002-1.030 [facility] Urobilinogen Ql (U)Ordered B y: Megan Montoya on 09-03-2024 Urine Urobilinogen Normal mg/dl Normal [facility] White blood cell (WBC) count Ordered By: Megan Montoya on 09-03-2024 WBC (Bld) [#/Vol] 10.6 10*3/uL 4.4-11.0 [facility] White blood cell countOrdere d By: Megan Montoya on 09-03-2024 Urine WBC 50-100 SEEN /hpf 0-5 [facility] [id number] 08-27-2024 [id number] Patient Choice Patient Name: MEL POP Date of : 1940 Normal [facility] Progress Noteon 08-22-2024 Progress Note Normal [facility] Albumin to globulin ratioOrd ered By: Megan Montoya on 08-20-2024 Albumin/Globulin [Mass ratio] 0.7 {ratio} Low 0.9-2.4 [facility] Bilirubin, totalOrdered By: Megan Montoya on 08-20-2024 Bilirubin [Mass/Vol] 0.60 mg/dL 0.20-1.00 [facility] Comment on above: For patients on eltr ombopag therapy, use of Dimension Edroy TBIL is not recommended. Blood urea nitrogen (BUN)/cr eatinine ratioOrdered By: Megan Montoya on 08-20-2024 Urea nitrogen/Creatinine [Mass ratio] 11.2 mg/mg 10-20 [facility] CBC-Complete Blood Cnt No Di ffon 08-20-2024 Erythrocyte distribution width (RBC) [Ratio] 19.2 % High 11.6-14.6 [facility] Comment on above: Performed By: #### L 100.0500, L500.2500 #### [facility] [address] [place], [address] Hematocrit (Bld) [Volume fraction] 33.4 % Low 37-47 [facility] Comment on above: Performed By: #### L 100.0500, L500.2500 #### [facility] [address] [place], [address] Hemoglobin (Bld) [Mass/Vol] 10.4 g/dL Low 12.0-15.0 [facility] Comment on above: Performed By: #### L 100.0500, L500.2500 #### [facility] [address] [place], [address] MCH (RBC) [Entitic mass] 26.3 pg Low 27.0-32.0 [facility] Comment on above: Performed By: #### L 100.0500, L500.2500 #### [facility] [address] [place], [address] MCHC (RBC) [Mass/Vol] 31.1 g/dL Low 32-36 [facility] Comment on above: Performed By: #### L 100.0500, L500.2500 #### [facility] [address] [place], [address] MCV (RBC) [Entitic vol] 84.6 fL Normal 81-99 [facility] Comment on above: Performed By: #### L 100.0500, L500.2500 #### [facility] [address] [place], [address] Platelet mean volume (Bld) [Entitic vol] 9.7 fL Normal 6.2-12.0 [facility] Comment on above: Performed By: #### L 100.0500, L500.2500 #### [facility] [address] [place], [address] Platelets (Bld) [#/Vol] 405 10*3/uL Normal 150-450 [facility] Comment on above: Performed By: #### L 100.0500, L500.2500 #### [facility] [address] [place], [address] RBC (Bld) [#/Vol] 3.95 10*6/uL Low 4.2-5.4 [facility] Comment on above: Performed By: #### L 100.0500, L500.2500 #### [facility] [address] [place], [address] RDW SD 58.9 fl High 35.1-43.9 [facility] Comment on above: Performed By: #### L 100.0500, L500.2500 #### [facility] [address] [place], [address] WBC (Bld) [#/Vol] 5.9 10*3/uL Normal 4.4-11.0 [facility] Comment on above: Performed By: #### L 100.0500, L500.2500 #### [facility] [address] [place], [address] Carbon dioxide measurementOr dered By: Megan Montoya on 08-20-2024 CO2 [Moles/Vol] 22.0 mmol/L 21.0-32.0 [facility] Chloride measurementOrdered By: Megan Montoya on 08-20-2024 Chloride [Moles/Vol] 109 mmol/L High 98-107 [facility] Comprehensive Metabolic Prof ilon 08-20-2024 Albumin [Mass/Vol] 2.7 g/dL Low 3.2-5.0 [facility] Comment on above: Performed By: #### L 100.0500, L500.2500 #### [facility] [address] [place], [address] Albumin/Globulin [Mass ratio] 0.7 {ratio} Low 0.9-2.4 [facility] Comment on above: Performed By: #### L 100.0500, L500.2500 #### [facility] [address] [place], [address] ALK P 117 U/L Normal 45-117 [facility] Comment on above: Performed By: #### L 100.0500, L500.2500 #### [facility] [address] [place], [address] ALT [Catalytic activity/Vol] 18 U/L Normal 13-56 [facility] Comment on above: Performed By: #### L 100.0500, L500.2500 #### [facility] [address] [place], [address] AST [Catalytic activity/Vol] 18 U/L Normal 15-37 [facility] Comment on above: Result Comment: Slig ht Hemolysis, Result may be falsely increased. Performed By: #### L 100.0500, L500.2500 #### [facility] [address] [place], [address] Bilirubin [Mass/Vol] 0.60 mg/dL Normal 0.20-1.00 [facility] Comment on above: Result Comment: For patients on eltrombopag therapy, use of Dimension Edroy TBIL is not recommended. Performed By: #### L 100.0500, L500.2500 #### [facility] [address] [place], [address] BUN/CRE 11.2 RATIO Normal 10-20 [facility] Comment on above: Performed By: #### L 100.0500, L500.2500 #### [facility] [address] [place], [address] CA,Total 9.0 mg/dL Normal 8.5-10.1 [facility] Comment on above: Performed By: #### L 100.0500, L500.2500 #### [facility] [address] [place], [address] Chloride [Moles/Vol] 109 mmol/L High 98-107 [facility] Comment on above: Performed By: #### L 100.0500, L500.2500 #### [facility] [address] [place], [address] CO2 [Moles/Vol] 22.0 mmol/L Normal 21.0-32.0 [facility] Comment on above: Performed By: #### L 100.0500, L500.2500 #### [facility] [address] [place], [address] Creatinine [Mass/Vol] 0.98 mg/dL Normal 0.55-1.02 [facility] Comment on above: Result Comment: The validity of the calculated GFR GFRAA in patients over 70 years has not been determined. Clinical correlation is essential. Performed By: #### L 100.0500, L500.2500 #### [facility] [address] [place], [address] EST GFR - AA 69 mL/min Normal >60 [facility] Comment on above: Result Comment: Afri can Fijian GFR Calc Performed By: #### L 100.0500, L500.2500 #### [facility] [address] [place], [address] GAP 7 Normal 5-15 [facility] Comment on above: Performed By: #### L 100.0500, L500.2500 #### [facility] [address] [place], [address] GFR/1.73 sq M.predicted among non-blacks MDRD (S/P/Bld) [Vol rate/Area] 57 mL/min/{1.73_m2} Low >60 [facility] Comment on above: Result Comment: Non- GFR Calc Performed By: #### L 100.0500, L500.2500 #### [facility] [address] [place], [address] Globulin (S) [Mass/Vol] 4.1 g/dL Normal 2.2-4.2 [facility] Comment on above: Performed By: #### L 100.0500, L500.2500 #### [facility] [address] [place], [address] Glucose [Mass/Vol] 97 mg/dL Normal 74-106 [facility] Comment on above: Performed By: #### L 100.0500, L500.2500 #### [facility] [address] [place], [address] Potassium [Moles/Vol] 4.2 mmol/L Normal 3.5-5.1 [facility] Comment on above: Result Comment: Slig ht Hemolysis, Result may be falsely increased. Performed By: #### L 100.0500, L500.2500 #### [facility] [address] [place], [address] Sodium [Moles/Vol] 138 mmol/L Normal 136-145 [facility] Comment on above: Performed By: #### L 100.0500, L500.2500 #### [facility] [address] [place], [address] T PROT 6.8 g/dL Normal 6.4-8.2 [facility] Comment on above: Performed By: #### L 100.0500, L500.2500 #### [facility] [address] [place], [address] Urea nitrogen [Mass/Vol] 11 mg/dL Normal 7-18 [facility] Comment on above: Performed By: #### L 100.0500, L500.2500 #### [facility] [address] [place], [address] Erythrocyte distribution wid th ratioOrdered By: Megan Montoya on 08-20-2024 Erythrocyte distribution width (RBC) [Ratio] 19.2 % High 11.6-14.6 [facility] Erythrocyte distribution wid th standard deviationOrdered By: Megan Montoya on 08-20-2024 Erythrocyte distribution width (RBC) [Entitic vol] 58.9 fL High 35.1-43.9 [facility] Estimated glomerular filtrat ion rate (GFR) AmericanOrdered By: Megan Montoya on 08-20-2024 Estimated GFR (MDRD) Amer 69 mL/min >60 [facility] Comment on above: GFR Calc Glomerular filtration rate ( GFR) estimationOrdered By: Megan Montoya on 08-20-2024 Estimated GFR (MDRD) Non-Af Amer 57 mL/min Low >60 [facility] Comment on above: Non- GFR Calc Glucose measurementOrdered B y: Megan Montoya on 08-20-2024 Glucose [Mass/Vol] 97 mg/dL 74-106 [facility] Hematocrit Auto (Bld) [Volum e fraction]Ordered By: Megan Montoya on 08-20-2024 Hematocrit (Bld) [Volume fraction] 33.4 % Low 37-47 [facility] Hemoglobin measurementOrdere d By: Megan Montoya on 08-20-2024 Hemoglobin (Bld) [Mass/Vol] 10.4 g/dL Low 12.0-15.0 [facility] - Chemistry and C hemistry - challengeOrdered By: Megan Montoya on 08-20-2024 AST [Catalytic activity/Vol] 18 U/L 15-37 [facility] Comment on above: Slight Hemolysis, Re sult may be falsely increased. MCV (mean corpuscular volume ) determinationOrdered By: Megan Montoya on 08-20-2024 MCV (RBC) [Entitic vol] 84.6 fL 81-99 [facility] Mean corpuscular hemoglobin (MCH) determinationOrdered By: Megan Montoya on 08-20-2024 MCH (RBC) [Entitic mass] 26.3 pg Low 27.0-32.0 [facility] Mean corpuscular hemoglobin concentration (MCHC) determinationOrdered By: Megan Montoya on 08-20-2024 MCHC (RBC) [Mass/Vol] 31.1 g/dL Low 32-36 [facility] Mean platelet volume determi nationOrdered By: Megan Montoya on 08-20-2024 Platelet mean volume (Bld) [Entitic vol] 9.7 fL 6.2-12.0 [facility] Platelet countOrdered By: Johnathan Guzman on 08-20-2024 Platelets (Bld) [#/Vol] 405 10*3/uL 150-450 [facility] Potassium measurementOrdered By: Megan Montoya on 08-20-2024 Potassium [Moles/Vol] 4.2 mmol/L 3.5-5.1 [facility] Comment on above: Slight Hemolysis, Re sult may be falsely increased. RBC Auto (Bld) [#/Vol]Ordere d By: Megan Montoya on 08-20-2024 RBC (Bld) [#/Vol] 3.95 10*6/uL Low 4.2-5.4 [facility] Serum anion gap measurementO rdered By: Megan Montoya on 08-20-2024 Anion gap [Moles/Vol] 7 mmol/L 5-15 [facility] Serum globulin measurementOr dered By: Megan Montoya on 08-20-2024 Globulin (S) [Mass/Vol] 4.1 g/dL 2.2-4.2 [facility] Serum or plasma alanine hinojosa otransferase (ALT) measurementOrdered By: Megan Montoya on 08-20-2024 ALT [Catalytic activity/Vol] 18 U/L 13-56 [facility] Serum or plasma albumin reyna urement (mass/volume)Ordered By: Megan Montoya on 08-20-2024 Albumin [Mass/Vol] 2.7 g/dL Low 3.2-5.0 [facility] Serum or plasma alkaline silvia sphatase measurementOrdered By: Megan Montoya on 08-20-2024 ALP [Catalytic activity/Vol] 117 U/L 45-117 [facility] Serum or plasma calcium reyna urement (mass/volume)Ordered By: Megan Montoya on 08-20-2024 Calcium [Mass/Vol] 9.0 mg/dL 8.5-10.1 [facility] Serum or plasma creatinine m easurement (mass/volume)Ordered By: Megan Montoya on 08-20-2024 Creatinine [Mass/Vol] 0.98 mg/dL 0.55-1.02 [facility] Comment on above: The validity of the calculated GFR & GFRAA in patients over 70 years has not been determined. Clinical correlation is essential. Serum or plasma urea nitroge n measurement (mass/volume)Ordered By: Megan Montoya on 08-20-2024 Urea nitrogen [Mass/Vol] 11 mg/dL 7-18 [facility] Sodium levelOrdered By: Juan C Montoya on 08-20-2024 Sodium [Moles/Vol] 138 mmol/L 136-145 [facility] Total proteinOrdered By: Pola Montoya on 08-20-2024 Protein [Mass/Vol] 6.8 g/dL 6.4-8.2 [facility] White blood cell (WBC) count Ordered By: Megan Montoya on 08-20-2024 WBC (Bld) [#/Vol] 5.9 10*3/uL 4.4-11.0 [facility] [id number] 08-16-2024 [id number] Normal [facility] [id number] Normal [facility] [id number] MAR & Discharge med list transmitted to [facility] via Careport per TCC request. Electronically signed by JESSICA Leone Normal [facility] [id number] Normal [facility] - Chemistry and C hemistry - challengeon 08-16-2024 Glucose [Mass/Vol] 120 mg/dL High 70 - 100 mg/dL [facility] No Panel Informationon 08-16 Interpretation and review of laboratory results Abnormal [facility] Performed by: [facility], [address] [place] [address], [place] [address] CLIA ID: [id number] [facility] Nursing Noteon 08-16-2024 Nursing Note Patient picked up fo r transfer to [facility] by stretcher. Report already called to GENET Garcia. Normal [facility] Nursing Note Telephone report erin led to GENET Garcia at [facility]. Normal [facility] Progress Noteon 08-16-2024 Progress Note Normal [facility] 30on 08-15-2024 30 Normal [facility] [id number] 08-15-2024 [id number] Authorization is pending with [facility]. Ref# [id number] to be DC'd to [facility]. Dtr Fidel Sharma. CM to follow. Normal [facility] Progress Noteon 08-15-2024 Progress [facility] 30on 08-14-2024 30 Normal [facility] [id number] 08-14-2024 [id number] Normal [facility] Progress Noteon 08-14-2024 Progress Note [facility] Progress Note [facility] Progress Note [facility] 30on 08-13-2024 30 Normal [facility] 30 Normal [facility] [id number] 08-13-2024 [id number] Normal [facility] Progress Noteon 08-13-2024 Progress Note Normal [facility] Progress Note [facility] 3008-12-2024 30 Normal [facility] Progress Noteon 08-12-2024 Progress Note Normal [facility] 30on 08-11-2024 30 Normal [facility] 30 Normal [facility] [id number] 08-11-2024 [id number] CM noted DC orders i n place, Dgt touring facilities over the weekend. Moira. [facility] pending acceptance, updates sent via careport. Normal [facility] Progress Noteon 08-11-2024 Progress Note [facility] 30on 08-10-2024 30 Normal [facility] [id number] 08-10-2024 [id number] Normal [facility] Progress Noteon 08-10-2024 Progress Note Normal [facility] [id number] 08-09-2024 [id number] Normal [facility] [id number] Normal [facility] [id number] Updated PT/OT notes placed to [facility] via Careport per [facility] request. Await review and response regarding ability to accept. TCC notified. Electronically signed by [facility] Aracelis Gardiner Normal [facility] [id number] Patient is medically ready for dc. PT/OT both continuing to recommend SNF. [facility] senior clinical study manager asked to start auth. Plan to dc back to [facility] pending auth [facility] Progress Noteon 08-09-2024 Progress Note Normal [facility] [id number] 08-08-2024 [id number] Normal [facility] Progress Noteon 08-08-2024 Progress Note Normal [facility] Progress Note Normal [facility] Progress Note Normal [facility] 30on 08-07-2024 30 Normal [facility] 30 Normal [facility] 30 Normal [facility] [id number] 08-07-2024 [id number] Normal [facility] Progress Noteon 08-07-2024 Progress Note Normal [facility] 30on 08-06-2024 30 Normal [facility] 30 Normal [facility] [id number] 08-06-2024 [id number] Pt cont's on IV AtBs '. Plan is for pt to return to [facility]. Auth and HECTOR needed prior to DC. CM to follow. Normal [facility] [id number] Normal [facility] Comprehensive metabolic 1998 panelon 08-06-2024 Albumin [Mass/Vol] 2.4 g/dL Low 3.4 - 4.8 g/dL [facility] ALP [Catalytic activity/Vol] 72 U/L 40 - 150 U/L [facility] ALT [Catalytic activity/Vol] 24 U/L NINF - 30 U/L [facility] Anion gap [Moles/Vol] 7 mmol/L 3 - 13 mmol/L [facility] AST [Catalytic activity/Vol] 21 U/L NINF - 34 U/L [facility] Bilirubin [Mass/Vol] 0.9 mg/dL [facility] 1.[facility] mg/dL [facility] Calcium [Mass/Vol] 8.4 mg/dL Low 8.8 - 10. 0 mg/dL [facility] Chloride [Moles/Vol] 115 mmol/L High 98 - 10 7 mmol/L [facility] CO2 [Moles/Vol] 17 mmol/L Low 23 - 31 mmol/L [facility] Creatinine [Mass/Vol] 0.91 mg/dL 0.57 - 1.11 mg/dL [facility] GFR/1.73 sq M.predicted (S/P/Bld) [Vol rate/Area] 62.3 mL/min - PINF [facility] Comment on above: Calculation based on the Chronic Kidney Disease Epidemiology Collaboration (CKD-EPI) equation refit without adjustment for race Glucose [Mass/Vol] 92 mg/dL 82 - 115 mg/dL [facility] Interpretation and review of laboratory results Abnormal [facility] Potassium [Moles/Vol] 3.8 mmol/L 3.5 - 5.1 mmol/L [facility] Comment on above: Plasma potassium chris ues may be up to 0.5 mmol/L lower than serum values. Protein [Mass/Vol] 5.5 g/dL Low 6.4 - 8.3 g/dL [facility] Sodium [Moles/Vol] 139 mmol/L 136 - 145 mmol/L [facility] Urea nitrogen [Mass/Vol] 9 mg/dL 9 - 23 mg/dL [facility] Consulton 08-06-2024 Consult Normal [facility] System [facility] Progress Noteon 08-06-2024 Progress Note Normal [facility] Progress Note Normal [facility] 30on 08-05-2024 30 Normal [facility] CBC W Auto Differential pane l (Bld)Ordered By: Frank Milligan on 08-05-2024 Basophils (Bld) [#/Vol] 0 10*3/uL 0.0 - 0.2 10*3/uL [facility] Basophils/100 WBC (Bld) 0.3 % 0.0 - 2.0 % [facility] Eosinophils (Bld) [#/Vol] 0.1 10*3/uL 0.0 - 0.5 10*3/uL [facility] Eosinophils/100 WBC (Bld) 1.6 % 0.0 - 6.0 % [facility] Erythrocyte distribution width (RBC) [Ratio] 18.9 % High 11.5 - 15.0 % [facility] Hematocrit (Bld) [Volume fraction] 33.3 % Low 35.0 - 47.0 % [facility] Hemoglobin (Bld) [Mass/Vol] 10.3 g/dL Low 11.7 - 16.0 g/dL [facility] Immature granulocytes (Bld) [#/Vol] 0.1 10*3/uL High NINF - 0.1 10*3/uL [facility] Immature granulocytes/100 WBC (Bld) 0.7 % 0.0 - 2.0 % [facility] Interpretation and review of laboratory results Abnormal [facility] Lymphocytes (Bld) [#/Vol] 1.1 10*3/uL 1.0 - 4.3 10*3/uL [facility] Lymphocytes/100 WBC (Bld) 15.6 % 15.0 - 45.0 % [facility] MCH (RBC) [Entitic mass] 26 pg 26.0 - 34.0 pg [facility] MCHC (RBC) [Mass/Vol] 30.9 % 30.5 - 36.0 % [facility] MCV (RBC) [Entitic vol] 84.1 fL 77.0 - 99.0 fL [facility] Monocytes (Bld) [#/Vol] 0.7 10*3/uL 0.0 - 0.9 10*3/uL [facility] Monocytes/100 WBC (Bld) 9.9 % 5.0 - 13.0 % [facility] Neutrophils (Bld) [#/Vol] 5.3 10*3/uL 1.8 - 7.5 10*3/uL [facility] Neutrophils/100 WBC (Bld) 71.9 % 38.0 - 82.0 % [facility] Nucleated RBC/100 WBC (Bld) [Ratio] 0 % [facility] Platelet mean volume (Bld) [Entitic vol] 9.2 fL 9.0 - 12.7 fL [facility] Platelets (Bld) [#/Vol] 235 10*3/uL 140 - 440 10*3/uL [facility] RBC (Bld) [#/Vol] 3.96 10*6/uL 3.80 - 5.2 0 10*6/uL [facility] WBC (Bld) [#/Vol] 7.3 10*3/uL 3.6 - 10.7 10*3/uL [facility] CBC W Auto Differential pane l (Bld)Ordered By: Aden Baires on 08-05-2024 Basophils (Bld) [#/Vol] 0 10*3/uL 0.0 - 0.2 10*3/uL [facility] Basophils/100 WBC (Bld) 0.3 % 0.0 - 2.0 % [facility] Eosinophils (Bld) [#/Vol] 0.1 10*3/uL 0.0 - 0.5 10*3/uL [facility] Eosinophils/100 WBC (Bld) 1.5 % 0.0 - 6.0 % [facility] Erythrocyte distribution width (RBC) [Ratio] 19.2 % High 11.5 - 15.0 % [facility] Hematocrit (Bld) [Volume fraction] 31.9 % Low 35.0 - 47.0 % [facility] Hemoglobin (Bld) [Mass/Vol] 9.9 g/dL Low 11.7 - 16.0 g/dL [facility] Immature granulocytes (Bld) [#/Vol] 0 10*3/uL NINF - 0.1 10*3/uL [facility] Immature granulocytes/100 WBC (Bld) 0.5 % 0.0 - 2.0 % [facility] Interpretation and review of laboratory results Abnormal [facility] Lymphocytes (Bld) [#/Vol] 1.1 10*3/uL 1.0 - 4.3 10*3/uL [facility] Lymphocytes/100 WBC (Bld) 16.6 % 15.0 - 45.0 % [facility] MCH (RBC) [Entitic mass] 26.2 pg 26.0 - 34.0 pg [facility] MCHC (RBC) [Mass/Vol] 31 % 30.5 - 36.0 % [facility] MCV (RBC) [Entitic vol] 84.4 fL 77.0 - 99.0 fL [facility] Monocytes (Bld) [#/Vol] 0.6 10*3/uL 0.0 - 0.9 10*3/uL [facility] Monocytes/100 WBC (Bld) 9.1 % 5.0 - 13.0 % [facility] Neutrophils (Bld) [#/Vol] 4.7 10*3/uL 1.8 - 7.5 10*3/uL [facility] Neutrophils/100 WBC (Bld) 72 % 38.0 - 82.0 % [facility] Nucleated RBC/100 WBC (Bld) [Ratio] 0 % [facility] Platelet mean volume (Bld) [Entitic vol] 10 fL 9.0 - 12.7 fL [facility] Platelets (Bld) [#/Vol] 242 10*3/uL 140 - 440 10*3/uL [facility] RBC (Bld) [#/Vol] 3.78 10*6/uL Low 3.80 - 5.2 0 10*6/uL [facility] WBC (Bld) [#/Vol] 6.5 10*3/uL 3.6 - 10.7 10*3/uL [facility] CBC WITH AUTO DIFFERENTIALon 08-05-2024 Basophils (Bld) [#/Vol] 0.0 10*3/uL Normal 0.0-0.2 [facility] Comment on above: Performed By: #### L [id number] ####Patient Services Technician: VELMA VALADEZ ([phone])[facility])[address] [place] [address] Basophils/100 WBC (Bld) 0.3 % Normal 0.0-2.0 [facility] Comment on above: Performed By: #### L [id number] ####Patient Services Technician: VELMA VALADEZ ([phone])[facility] ([facility])[address] [place] [address] Eosinophils (Bld) [#/Vol] 0.1 10*3/uL Normal 0.0-0.5 [facility] Comment on above: Performed By: #### L [id number] ####Patient Services Technician: VELMA VALADEZ ([phone])[facility])[address] [place] [address] Eosinophils/100 WBC (Bld) 1.6 % Normal 0.0-6.0 [facility] Comment on above: Performed By: #### L [id number] ####Patient Services Technician: VELMA VALADEZ ([phone])[facility])[address] [place] [address] Erythrocyte distribution width (RBC) [Ratio] 18.9 % High 11.5-15.0 [facility] Comment on above: Performed By: #### L [id number] ####Patient Services Technician: VELMA VALADEZ ([phone])[facility])[address] [place] [address] Hematocrit (Bld) [Volume fraction] 33.3 % Low 35.0-47.0 [facility] Comment on above: Performed By: #### L [id number] ####Patient Services Technician: VELMA VALADEZ ([phone])[facility])[address] [place] [address] Hemoglobin (Bld) [Mass/Vol] 10.3 g/dL Low 11.7-16.0 [facility] Comment on above: Performed By: #### L [id number] ####Patient Services Technician: VELMA VALADEZ ([phone])[facility])[address] [place] [address] IMMATURE GRANS % 0.7 % Normal 0.0-2.0 [facility] Comment on above: Performed By: #### L [id number] ####Patient Services Technician: VELMA VALADEZ ([phone])[facility])[address] [place] [address] IMMATURE GRANS ABSOLUTE 0.1 10*3/uL High <0.1 [facility] Comment on above: Performed By: #### L [id number] ####Patient Services Technician: VELMA VALADEZ ([phone])[address] Lymphocytes (Bld) [#/Vol] 1.1 10*3/uL Normal 1.0-4.3 [facility] Comment on above: Performed By: #### L [id number] ####Patient Services Technician: VELMA VALADEZ ([phone])[facility])[address] [place] [address] Lymphocytes/100 WBC (Bld) 15.6 % Normal 15.0-45.0 [facility] Comment on above: Performed By: #### L [id number] ####Patient Services Technician: VELMA VALADEZ ([phone])[address] MCH (RBC) [Entitic mass] 26.0 pg Normal 26.0-34.0 [facility] Comment on above: Performed By: #### L [id number] ####Patient Services Technician: VELMA VALADEZ ([phone])[address] MCHC 30.9 % Normal 30.5-36.0 [facility] Comment on above: Performed By: #### L [id number] ####Patient Services Technician: VELMA VALADEZ ([phone])[facility] ([facility])[address] [place] [address] MCV (RBC) [Entitic vol] 84.1 fL Normal 77.0-99.0 [facility] Comment on above: Performed By: #### L [id number] ####Patient Services Technician: VELMA VALADEZ ([phone])[facility] ([facility])[address] [place] [address] Monocytes (Bld) [#/Vol] 0.7 10*3/uL Normal 0.0-0.9 [facility] Comment on above: Performed By: #### L [id number] ####Patient Services Technician: VELMA VALADEZ ([phone])[facility] ([facility])[address] [place] [address] Monocytes/100 WBC (Bld) 9.9 % Normal 5.0-13.0 [facility] Comment on above: Performed By: #### L [id number] ####Patient Services Technician: VELMA VALADEZ ([phone])[facility] ([facility])[address] [place] [address] NEUTROPHILS ABSOLUTE 5.3 10*3/uL Normal 1.8-7.5 [facility] Comment on above: Performed By: #### L [id number] ####Patient Services Technician: VELMA VALADEZ ([phone])[facility] ([facility])[address] [place] [address] Neutrophils/100 WBC (Bld) 71.9 % Normal 38.0-82.0 [facility] Comment on above: Performed By: #### L [id number] ####Patient Services Technician: VELMA VALADEZ ([phone])[facility] ([facility])[address] [place] [address] NRBC 0.0 /100 WBCs Normal 0.0-2.0 [facility] Comment on above: Performed By: #### L [id number] ####Patient Services Technician: VELMA VALADEZ ([phone])[facility] ([facility])[address] [place] [address] [place] Platelet mean volume (Bld) [Entitic vol] 9.2 fL Normal 9.0-12.7 [facility] Comment on above: Performed By: #### L [id number] ####Patient Services Technician: VELMA VALADEZ ([phone])[facility] ([facility])[address] [place] [address] Platelets (Bld) [#/Vol] 235 10*3/uL Normal 140-440 [facility] Comment on above: Performed By: #### L [id number] ####Patient Services Technician: VELMA VALADEZ ([phone])[facility] ([facility])[address] [place] [address] RBC (Bld) [#/Vol] 3.96 10*6/uL Normal 3.80-5.20 [facility] Comment on above: Performed By: #### L [id number] ####Patient Services Technician: VELMA VALADEZ ([phone])[facility] ([facility])[address] [place] [address] WBC (Bld) [#/Vol] 7.3 10*3/uL Normal 3.6-10.7 [facility] Comment on above: Performed By: #### L [id number] ####Patient Services Technician: VELMA VALADEZ ([phone])[facility] ([facility])[address] [place] [address] Basophils (Bld) [#/Vol] 0.0 10*3/uL Normal 0.0-0.2 [facility] Comment on above: Performed By: #### L [id number] ####Patient Services Technician: VELMA VALADEZ ([phone])[facility] ([facility])[address] [place] [address] [place] Basophils/100 WBC (Bld) 0.3 % Normal 0.0-2.0 [facility] Comment on above: Performed By: #### L [id number] ####Patient Services Technician: VELMA VALADEZ ([phone])[facility] ([facility])[address] [place] [address] [place] Eosinophils (Bld) [#/Vol] 0.1 10*3/uL Normal 0.0-0.5 [facility] Comment on above: Performed By: #### L [id number] ####Patient Services Technician: VELMA VALADEZ ([phone])[facility])[address] [place] [address] Eosinophils/100 WBC (Bld) 1.5 % Normal 0.0-6.0 [facility] Comment on above: Performed By: #### L [id number] ####Patient Services Technician: VELMA VALADEZ ([phone])[facility])[address] [place] [address] Erythrocyte distribution width (RBC) [Ratio] 19.2 % High 11.5-15.0 [facility] Comment on above: Performed By: #### L [id number] ####Patient Services Technician: VELMA VALADEZ ([phone])[address] Hematocrit (Bld) [Volume fraction] 31.9 % Low 35.0-47.0 [facility] Comment on above: Performed By: #### L [id number] ####Patient Services Technician: VELMA VALADEZ ([phone])[address] Hemoglobin (Bld) [Mass/Vol] 9.9 g/dL Low 11.7-16.0 [facility] Comment on above: Performed By: #### L [id number] ####Patient Services Technician: VELMA VALADEZ ([phone])[facility])[address] [place] [address] IMMATURE GRANS % 0.5 % Normal 0.0-2.0 [facility] Comment on above: Performed By: #### L [id number] ####Patient Services Technician: VELMA VALADEZ ([phone])[address] IMMATURE GRANS ABSOLUTE 0.0 10*3/uL Normal <0.1 [facility] Comment on above: Performed By: #### L [id number] ####Patient Services Technician: VELMA VALADEZ ([phone])[facility])[address] [place] [address] Lymphocytes (Bld) [#/Vol] 1.1 10*3/uL Normal 1.0-4.3 [facility] Comment on above: Performed By: #### L [id number] ####Patient Services Technician: VELMA VALADEZ ([phone])[facility])[address] [place] [address] Lymphocytes/100 WBC (Bld) 16.6 % Normal 15.0-45.0 [facility] Comment on above: Performed By: #### L [id number] ####Patient Services Technician: VELMA VALADEZ ([phone])[address] MCH (RBC) [Entitic mass] 26.2 pg Normal 26.0-34.0 [facility] Comment on above: Performed By: #### L [id number] ####Patient Services Technician: VELMA VALADEZ ([phone])[facility])[address] [place] [address] MCHC 31.0 % Normal 30.5-36.0 [facility] Comment on above: Performed By: #### L [id number] ####Patient Services Technician: VELMA VALADEZ ([phone])[address] MCV (RBC) [Entitic vol] 84.4 fL Normal 77.0-99.0 [facility] Comment on above: Performed By: #### L [id number] ####Patient Services Technician: VELMA VALADEZ ([phone])[facility])[address] [place] [address] Monocytes (Bld) [#/Vol] 0.6 10*3/uL Normal 0.0-0.9 [facility] Comment on above: Performed By: #### L [id number] ####Patient Services Technician: VELMA VALADEZ ([phone])[facility])[address] [place] [address] [place] Monocytes/100 WBC (Bld) 9.1 % Normal 5.0-13.0 [facility] Comment on above: Performed By: #### L [id number] ####Patient Services Technician: VELMA VALADEZ ([phone])[facility] ([facility])[address] [place] [address] NEUTROPHILS ABSOLUTE 4.7 10*3/uL Normal 1.8-7.5 [facility] Comment on above: Performed By: #### L [id number] ####Patient Services Technician: VELMA VALADEZ ([phone])[facility] ([facility])[address] [place] [address] Neutrophils/100 WBC (Bld) 72.0 % Normal 38.0-82.0 [facility] Comment on above: Performed By: #### L [id number] ####Patient Services Technician: VELMA VALADEZ ([phone])[facility] ([facility])[address] [place] [address] NRBC 0.0 /100 WBCs Normal 0.0-2.0 [facility] Comment on above: Performed By: #### L [id number] ####Patient Services Technician: VELMA VALADEZ ([phone])[facility] ([facility])[address] [place] [address] Platelet mean volume (Bld) [Entitic vol] 10.0 fL Normal 9.0-12.7 [facility] Comment on above: Performed By: #### L [id number] ####Patient Services Technician: VELMA VALADEZ ([phone])[facility] ([facility])[address] [place] [address] [place] Platelets (Bld) [#/Vol] 242 10*3/uL Normal 140-440 [facility] Comment on above: Performed By: #### L [id number] ####Patient Services Technician: VELMA VALADEZ ([phone])[facility] ([facility])[address] [place] [address] [place] RBC (Bld) [#/Vol] 3.78 10*6/uL Low 3.80-5.20 [facility] Comment on above: Performed By: #### L [id number] ####Patient Services Technician: VELMA VALADEZ ([phone])[facility])[address] [place] [address] WBC (Bld) [#/Vol] 6.5 10*3/uL Normal 3.6-10.7 [facility] Comment on above: Performed By: #### L [id number] ####Patient Services Technician: VELMA VALADEZ ([phone])[facility] ([facility])[address] [place] [address] COMPREHENSIVE METABOLIC PANE Gilberto 08-05-2024 Albumin [Mass/Vol] 2.4 g/dL Low 3.4-4.8 [facility] Comment on above: Performed By: #### L [id number] ####Patient Services Technician: VELMA VALADEZ ([phone])[facility] ([facility])[address] [place] [address] ALP [Catalytic activity/Vol] 72 U/L Normal 40-150 [facility] Comment on above: Performed By: #### L [id number] ####Patient Services Technician: VELMA VALADEZ ([phone])[facility])[address] [place] [address] ALT [Catalytic activity/Vol] 24 U/L Normal <30 [facility] Comment on above: Performed By: #### L [id number] ####Patient Services Technician: VELMA VALADEZ ([phone])[facility])[address] [place] [address] Anion gap [Moles/Vol] 7 mmol/L Normal 3-13 [facility] Comment on above: Performed By: #### L [id number] ####Patient Services Technician: VELMA VALADEZ ([phone])[facility])[address] [place] [address] AST [Catalytic activity/Vol] 21 U/L Normal <34 [facility] Comment on above: Performed By: #### L [id number] ####Patient Services Technician: VELMA VALADEZ ([phone])[facility] ([facility])[address] [place] [address] Bilirubin [Mass/Vol] 0.9 mg/dL Normal <1.2 [facility] Comment on above: Performed By: #### L [id number] ####Patient Services Technician: VELMA VALADEZ ([phone])[facility] ([facility])[address] [place] [address] Calcium [Mass/Vol] 8.4 mg/dL Low 8.8-10.0 [facility] Comment on above: Performed By: #### L [id number] ####Patient Services Technician: VELMA VALADEZ ([phone])[facility] ([facility])[address] [place] [address] Chloride [Moles/Vol] 115 mmol/L High 98-107 [facility] Comment on above: Performed By: #### L [id number] ####Patient Services Technician: VELMA VALADEZ ([phone])[facility] ([facility])[address] [place] [address] CO2 [Moles/Vol] 17 mmol/L Low 23-31 [facility] Comment on above: Performed By: #### L [id number] ####Patient Services Technician: VELMA VALADEZ ([phone])[facility] ([facility])[address] [place] [address] Creatinine [Mass/Vol] 0.91 mg/dL Normal 0.57-1.11 [facility] Comment on above: Performed By: #### L [id number] ####Patient Services Technician: VELMA VALADEZ ([phone])[facility] ([facility])[address] [place] [address] [place] GLOMERULAR FILTRATION RATE ML/MIN/1.73 SQ M.PREDICTED 62.3 mL/min/1.73m*2 Normal >60.0 [facility] Comment on above: Result Comment: Calc ulation based on the Chronic Kidney Disease Epidemiology Collaboration (CKD-EPI) equation refit without adjustment for race Performed By: #### L [id number] ####Patient Services Technician: VELMA VALADEZ ([phone])[facility] ([facility])[address] [place] [address] [place] Glucose [Mass/Vol] 92 mg/dL Normal 82-115 [facility] Comment on above: Performed By: #### L [id number] ####Patient Services Technician: VELMA VALADEZ ([phone])[facility] ([facility])[address] [place] [address] Potassium [Moles/Vol] 3.8 mmol/L Normal 3.5-5.1 [facility] Comment on above: Result Comment: [facility] potassium values may be up to 0.5 mmol/L lower than serum values. Performed By: #### L [id number] ####Patient Services Technician: VELMA VALADEZ ([phone])[facility] ([facility])[address] [place] [address] Protein [Mass/Vol] 5.5 g/dL Low 6.4-8.3 [facility] Comment on above: Performed By: #### L [id number] ####Patient Services Technician: VELMA VALADEZ ([phone])[facility] ([facility])[address] [place] [address] [place] Sodium [Moles/Vol] 139 mmol/L Normal 136-145 [facility] Comment on above: Performed By: #### L [id number] ####Patient Services Technician: VELMA VALADEZ ([phone])[facility] ([facility])[address] [place] [address] [place] Urea nitrogen [Mass/Vol] 9 mg/dL Normal 9-23 [facility] Comment on above: Performed By: #### L [id number] ####Patient Services Technician: VELMA VALADEZ ([phone])[facility] ([facility])[address] [place] [address] [place] Albumin [Mass/Vol] 2.3 g/dL Low 3.4-4.8 [facility] Comment on above: Performed By: #### L [id number] ####Patient Services Technician: VELMA VALADEZ ([phone])[facility] ([facility])[address] [place] [address] [place] ALP [Catalytic activity/Vol] 74 U/L Normal 40-150 [facility] Comment on above: Performed By: #### L [id number] ####Patient Services Technician: VELMA VALADEZ ([phone])[facility])[address] [place] [address] ALT [Catalytic activity/Vol] 27 U/L Normal <30 [facility] Comment on above: Performed By: #### L [id number] ####Patient Services Technician: VELMA VALADEZ ([phone])[facility] ([facility])[address] [place] [address] Anion gap [Moles/Vol] 5 mmol/L Normal 3-13 [facility] Comment on above: Performed By: #### L [id number] ####Patient Services Technician: VELMA VALADEZ ([phone])[facility])[address] [place] [address] AST [Catalytic activity/Vol] 24 U/L Normal <34 [facility] Comment on above: Performed By: #### L [id number] ####Patient Services Technician: VELMA VALADEZ ([phone])[facility] ([facility])[address] [place] [address] Bilirubin [Mass/Vol] 0.6 mg/dL Normal <1.2 [facility] Comment on above: Performed By: #### L [id number] ####Patient Services Technician: VELMA VALADEZ ([phone])[facility] ([facility])[address] [place] [address] Calcium [Mass/Vol] 8.1 mg/dL Low 8.8-10.0 [facility] Comment on above: Performed By: #### L [id number] ####Patient Services Technician: VELMA VALADEZ ([phone])[facility] ([facility])[address] [place] [address] [place] Chloride [Moles/Vol] 108 mmol/L High 98-107 [facility] Comment on above: Performed By: #### L [id number] ####Patient Services Technician: VELMA VALADEZ ([phone])[facility] ([facility])[address] [place] [address] [place] CO2 [Moles/Vol] 21 mmol/L Low 23-31 [facility] Comment on above: Performed By: #### L [id number] ####Patient Services Technician: VELMA VALADEZ ([phone])[facility])[address] [place] [address] Creatinine [Mass/Vol] 0.89 mg/dL Normal 0.57-1.11 [facility] Comment on above: Performed By: #### L [id number] ####Patient Services Technician: VELMA VALADEZ ([phone])[facility] ([facility])[address] [place] [address] [place] GLOMERULAR FILTRATION RATE ML/MIN/1.73 SQ M.PREDICTED 64.0 mL/min/1.73m*2 Normal >60.0 [facility] Comment on above: Result Comment: Calc ulation based on the Chronic Kidney Disease Epidemiology Collaboration (CKD-EPI) equation refit without adjustment for race Performed By: #### L [id number] ####Patient Services Technician: VELMA VALADEZ ([phone])[facility] ([facility])[address] [place] [address] [place] Glucose [Mass/Vol] 85 mg/dL Normal 82-115 [facility] Comment on above: Performed By: #### L [id number] ####Patient Services Technician: VELMA VALADEZ ([phone])[facility])[address] [place] [address] Potassium [Moles/Vol] 3.8 mmol/L Normal 3.5-5.1 [facility] Comment on above: Result Comment: [facility] potassium values may be up to 0.5 mmol/L lower than serum values. Performed By: #### L [id number] ####Patient Services Technician: VELMA VALADEZ ([phone])[facility] ([facility])[address] [place] [address] [place] Protein [Mass/Vol] 5.2 g/dL Low 6.4-8.3 [facility] Comment on above: Performed By: #### L [id number] ####Patient Services Technician: VELMA VALADEZ ([phone])[facility] ([facility])[address] [place] [address] Sodium [Moles/Vol] 134 mmol/L Low 136-145 [facility] Comment on above: Performed By: #### L [id number] ####Patient Services Technician: VELMA VALADEZ ([phone])[facility] ([facility])[address] [place] [address] Urea nitrogen [Mass/Vol] 13 mg/dL Normal 9-23 [facility] Comment on above: Performed By: #### L [id number] ####Patient Services Technician: VELMA VALADEZ ([phone])[facility] ([facility])[address] [place] [address] Comprehensive metabolic 1998 panelon 08-05-2024 Albumin [Mass/Vol] 2.3 g/dL Low 3.4 - 4.8 g/dL [facility] ALP [Catalytic activity/Vol] 74 U/L 40 - 150 U/L [facility] ALT [Catalytic activity/Vol] 27 U/L NINF - 30 U/L [facility] Anion gap [Moles/Vol] 5 mmol/L 3 - 13 mmol/L [facility] AST [Catalytic activity/Vol] 24 U/L NINF - 34 U/L [facility] Bilirubin [Mass/Vol] 0.6 mg/dL NINF - 1.2 mg/dL [facility] Calcium [Mass/Vol] 8.1 mg/dL Low 8.8 - 10. 0 mg/dL [facility] Chloride [Moles/Vol] 108 mmol/L High 98 - 10 7 mmol/L [facility] CO2 [Moles/Vol] 21 mmol/L Low 23 - 31 mmol/L [facility] Creatinine [Mass/Vol] 0.89 mg/dL 0.57 - 1.11 mg/dL [facility] GFR/1.73 sq M.predicted (S/P/Bld) [Vol rate/Area] 64 mL/min - PINF [facility] Comment on above: Calculation based on the Chronic Kidney Disease Epidemiology Collaboration (CKD-EPI) equation refit without adjustment for race Glucose [Mass/Vol] 85 mg/dL 82 - 115 mg/dL [facility] Interpretation and review of laboratory results Abnormal [facility] Potassium [Moles/Vol] 3.8 mmol/L 3.5 - 5.1 mmol/L [facility] Comment on above: Plasma potassium chris ues may be up to 0.5 mmol/L lower than serum values. Protein [Mass/Vol] 5.2 g/dL Low 6.4 - 8.3 g/dL [facility] Sodium [Moles/Vol] 134 mmol/L Low 136 - 145 mmol/L [facility] Urea nitrogen [Mass/Vol] 13 mg/dL 9 - 23 mg/dL [facility] Progress Noteon 08-05-2024 Progress [facility] 30on 08-04-2024 30 Normal [facility] 30 Normal [facility] CBC W Auto Differential pane l (Bld)Ordered By: Devika Eisenberg on 08-04-2024 Basophils (Bld) [#/Vol] 0 10*3/uL 0.0 - 0.2 10*3/uL [facility] Basophils/100 WBC (Bld) 0.2 % 0.0 - 2.0 % [facility] Eosinophils (Bld) [#/Vol] 0.1 10*3/uL 0.0 - 0.5 10*3/uL [facility] Eosinophils/100 WBC (Bld) 1.4 % 0.0 - 6.0 % [facility] Erythrocyte distribution width (RBC) [Ratio] 19.3 % High 11.5 - 15.0 % [facility] Hematocrit (Bld) [Volume fraction] 33 % Low 35.0 - 47.0 % [facility] Hemoglobin (Bld) [Mass/Vol] 10 g/dL Low 11.7 - 16.0 g/dL [facility] Immature granulocytes (Bld) [#/Vol] 0 10*3/uL NINF - 0.1 10*3/uL [facility] Immature granulocytes/100 WBC (Bld) 0.5 % 0.0 - 2.0 % [facility] Interpretation and review of laboratory results Abnormal [facility] Lymphocytes (Bld) [#/Vol] 1 10*3/uL 1.0 - 4.3 10*3/uL [facility] Lymphocytes/100 WBC (Bld) 17.7 % 15.0 - 45.0 % [facility] MCH (RBC) [Entitic mass] 25.8 pg Low 26.0 - 34.0 pg [facility] MCHC (RBC) [Mass/Vol] 30.3 % Low 30.5 - 36.0 % [facility] MCV (RBC) [Entitic vol] 85.1 fL 77.0 - 99.0 fL [facility] Monocytes (Bld) [#/Vol] 0.5 10*3/uL 0.0 - 0.9 10*3/uL [facility] Monocytes/100 WBC (Bld) 9.5 % 5.0 - 13.0 % [facility] Neutrophils (Bld) [#/Vol] 3.9 10*3/uL 1.8 - 7.5 10*3/uL [facility] Neutrophils/100 WBC (Bld) 70.7 % 38.0 - 82.0 % [facility] Nucleated RBC/100 WBC (Bld) [Ratio] 0 % [facility] Platelet mean volume (Bld) [Entitic vol] 9.8 fL 9.0 - 12.7 fL [facility] Platelets (Bld) [#/Vol] 280 10*3/uL 140 - 440 10*3/uL [facility] RBC (Bld) [#/Vol] 3.88 10*6/uL 3.80 - 5.2 0 10*6/uL [facility] WBC (Bld) [#/Vol] 5.6 10*3/uL 3.6 - 10.7 10*3/uL [facility] CBC WITH AUTO DIFFERENTIALon 08-04-2024 Basophils (Bld) [#/Vol] 0.0 10*3/uL Normal 0.0-0.2 [facility] Comment on above: Performed By: #### L [id number] ####Patient Services Technician: VELMA VALADEZ ([phone])[facility] ([facility])[address] [place] [address] Basophils/100 WBC (Bld) 0.2 % Normal 0.0-2.0 [facility] Comment on above: Performed By: #### L [id number] ####Patient Services Technician: VELMA VALADEZ ([phone])[facility] ([facility])[address] [place] [address] Eosinophils (Bld) [#/Vol] 0.1 10*3/uL Normal 0.0-0.5 [facility] Comment on above: Performed By: #### L [id number] ####Patient Services Technician: VELMA VALADEZ ([phone])[facility])[address] [place] [address] Eosinophils/100 WBC (Bld) 1.4 % Normal 0.0-6.0 [facility] Comment on above: Performed By: #### L [id number] ####Patient Services Technician: VELMA VALADEZ ([phone])[facility])[address] [place] [address] Erythrocyte distribution width (RBC) [Ratio] 19.3 % High 11.5-15.0 [facility] Comment on above: Performed By: #### L [id number] ####Patient Services Technician: VELMA VALADEZ ([phone])[address] Hematocrit (Bld) [Volume fraction] 33.0 % Low 35.0-47.0 [facility] Comment on above: Performed By: #### L [id number] ####Patient Services Technician: VELMA VALADEZ ([phone])[address] Hemoglobin (Bld) [Mass/Vol] 10.0 g/dL Low 11.7-16.0 [facility] Comment on above: Performed By: #### L [id number] ####Patient Services Technician: VELMA VALADEZ ([phone])[address] IMMATURE GRANS % 0.5 % Normal 0.0-2.0 [facility] Comment on above: Performed By: #### L [id number] ####Patient Services Technician: VELMA VALADEZ ([phone])[address] IMMATURE GRANS ABSOLUTE 0.0 10*3/uL Normal <0.1 [facility] Comment on above: Performed By: #### L [id number] ####Patient Services Technician: VELMA VALADEZ ([phone])[facility])[address] [place] [address] Lymphocytes (Bld) [#/Vol] 1.0 10*3/uL Normal 1.0-4.3 [facility] Comment on above: Performed By: #### L [id number] ####Patient Services Technician: VELMA VALADEZ ([phone])[facility])[address] [place] [address] Lymphocytes/100 WBC (Bld) 17.7 % Normal 15.0-45.0 [facility] Comment on above: Performed By: #### L [id number] ####Patient Services Technician: VELMA VALADEZ ([phone])[address] [facility] (RBC) [Entitic mass] 25.8 pg Low 26.0-34.0 [facility] Comment on above: Performed By: #### L [id number] ####Patient Services Technician: VELMA VALADEZ ([phone])[facility])[address] [place] [address] MCHC 30.3 % Low 30.5-36.0 [facility] Comment on above: Performed By: #### L [id number] ####Patient Services Technician: VELMA VALADEZ ([phone])[facility])[address] [place] [address] MCV (RBC) [Entitic vol] 85.1 fL Normal 77.0-99.0 S [facility] Comment on above: Performed By: #### L [id number] ####Patient Services Technician: VELMA VALADEZ ([phone])[facility])[address] [place] [address] Monocytes (Bld) [#/Vol] 0.5 10*3/uL Normal 0.0-0.9 [facility] Comment on above: Performed By: #### L [id number] ####Patient Services Technician: VELMA VALADEZ ([phone])[facility])[address] [place] [address] Monocytes/100 WBC (Bld) 9.5 % Normal 5.0-13.0 [facility] Comment on above: Performed By: #### L [id number] ####Patient Services Technician: VELMA VALADEZ ([phone])[facility] ([facility])[address] [place] [address] NEUTROPHILS ABSOLUTE 3.9 10*3/uL Normal 1.8-7.5 [facility] Comment on above: Performed By: #### L [id number] ####Patient Services Technician: VELMA VALADEZ ([phone])[facility] ([facility])[address] [place] [address] Neutrophils/100 WBC (Bld) 70.7 % Normal 38.0-82.0 [facility] Comment on above: Performed By: #### L [id number] ####Patient Services Technician: VELMA VALADEZ ([phone])[facility] ([facility])[address] [place] [address] NRBC 0.0 /100 WBCs Normal 0.0-2.0 [facility] Comment on above: Performed By: #### L [id number] ####Patient Services Technician: VELMA VALADEZ ([phone])[facility] ([facility])[address] [place] [address] Platelet mean volume (Bld) [Entitic vol] 9.8 fL Normal 9.0-12.7 [facility] Comment on above: Performed By: #### L [id number] ####Patient Services Technician: VELMA VALADEZ ([phone])[facility] ([facility])[address] [place] [address] Platelets (Bld) [#/Vol] 280 10*3/uL Normal 140-440 [facility] Comment on above: Performed By: #### L [id number] ####Patient Services Technician: VELMA VALADEZ ([phone])[facility] ([facility])[address] [place] [address] RBC (Bld) [#/Vol] 3.88 10*6/uL Normal 3.80-5.20 [facility] Comment on above: Performed By: #### L [id number] ####Patient Services Technician: VELMA VALADEZ ([phone])[facility])[address] [place] [address] WBC (Bld) [#/Vol] 5.6 10*3/uL Normal 3.6-10.7 [facility] Comment on above: Performed By: #### L [id number] ####Patient Services Technician: VELMA VALADEZ ([phone])[facility])[address] [place] [address] COMPREHENSIVE METABOLIC PANE Gilberto 08-04-2024 Albumin [Mass/Vol] 2.3 g/dL Low 3.4-4.8 [facility] Comment on above: Performed By: #### L [id number] ####Patient Services Technician: VELMA VALADEZ ([phone])[facility])[address] [place] [address] ALP [Catalytic activity/Vol] 68 U/L Normal 40-150 [facility] Comment on above: Performed By: #### L AB17 ####Patient Services Technician: VELMA VALADEZ ([phone])[facility])[address] [place] [address] ALT [Catalytic activity/Vol] 26 U/L Normal <30 [facility] Comment on above: Performed By: #### L AB17 ####Patient Services Technician: VELMA VALADEZ ([phone])[facility])[address] [place] [address] Anion gap [Moles/Vol] 6 mmol/L Normal 3-13 [facility] Comment on above: Performed By: #### L AB17 ####Patient Services Technician: VELMA VALADEZ ([phone])[facility])[address] [place] [address] AST [Catalytic activity/Vol] 25 U/L Normal <34 [facility] Comment on above: Performed By: #### L AB17 ####Patient Services Technician: VELMA VALADEZ ([phone])[facility] ([facility])[address] [place] [address] Bilirubin [Mass/Vol] 0.5 mg/dL Normal <1.2 [facility] Comment on above: Performed By: #### L [id number] ####Patient Services Technician: VELMA VALADEZ ([phone])[facility] ([facility])[address] [place] [address] Calcium [Mass/Vol] 8.2 mg/dL Low 8.8-10.0 [facility] Comment on above: Performed By: #### L AB17 ####Patient Services Technician: VELMA VALADEZ ([phone])[facility] ([facility])[address] [place] [address] Chloride [Moles/Vol] 112 mmol/L High 98-107 [facility] Comment on above: Performed By: #### L AB17 ####Patient Services Technician: VELMA VALADEZ ([phone])[facility] ([facility])[address] [place] [address] CO2 [Moles/Vol] 21 mmol/L Low 23-31 [facility] Comment on above: Performed By: #### L AB17 ####Patient Services Technician: VELMA VALADEZ ([phone])[facility] ([facility])[address] [place] [address] Creatinine [Mass/Vol] 1.13 mg/dL High 0.57-1.11 [facility] Comment on above: Performed By: #### L AB17 ####Patient Services Technician: VELMA VALADEZ ([phone])[facility] ([facility])[address] [place] [address] [place] GLOMERULAR FILTRATION RATE ML/MIN/1.73 SQ M.PREDICTED 48.1 mL/min/1.73m*2 Low >60.0 [facility] Comment on above: Result Comment: Calc ulation based on the Chronic Kidney Disease Epidemiology Collaboration (CKD-EPI) equation refit without adjustment for race Performed By: #### L AB17 ####Patient Services Technician: VELMA VALADEZ ([phone])[facility])[address] [place] [address] Glucose [Mass/Vol] 153 mg/dL High 82-115 [facility] Comment on above: Performed By: #### L AB17 ####Patient Services Technician: VELMA VALADEZ ([phone])[facility])[address] [place] [address] Potassium [Moles/Vol] 3.9 mmol/L Normal 3.5-5.1 [facility] Comment on above: Result Comment: [facility] potassium values may be up to 0.5 mmol/L lower than serum values. Performed By: #### L AB17 ####Patient Services Technician: VELMA VALADEZ ([phone])[facility])[address] [place] [address] Protein [Mass/Vol] 5.2 g/dL Low 6.4-8.3 [facility] Comment on above: Performed By: #### L AB17 ####Patient Services Technician: VELMA VALADEZ ([phone])[facility] ([facility])[address] [place] [address] Sodium [Moles/Vol] 139 mmol/L Normal 136-145 [facility] Comment on above: Performed By: #### L AB17 ####Patient Services Technician: VELMA VALADEZ ([phone])[facility])[address] [place] [address] Urea nitrogen [Mass/Vol] 26 mg/dL High 9-23 [facility] Comment on above: Performed By: #### L AB17 ####Patient Services Technician: VELMA VALADEZ ([phone])[facility])[address] [place] [address] Comprehensive metabolic 1998 panelon 08-04-2024 Albumin [Mass/Vol] 2.3 g/dL Low 3.4 - 4.8 g/dL [facility] ALP [Catalytic activity/Vol] 68 U/L 40 - 150 U/L [facility] ALT [Catalytic activity/Vol] 26 U/L NINF - 30 U/L [facility] Anion gap [Moles/Vol] 6 mmol/L 3 - 13 mmol/L [facility] AST [Catalytic activity/Vol] 25 U/L NINF - 34 U/L [facility] Bilirubin [Mass/Vol] 0.5 mg/dL NINF - 1.2 mg/dL [facility] Calcium [Mass/Vol] 8.2 mg/dL Low 8.8 - 10. 0 mg/dL [facility] Chloride [Moles/Vol] 112 mmol/L High 98 - 10 7 mmol/L [facility] CO2 [Moles/Vol] 21 mmol/L Low 23 - 31 mmol/L [facility] Creatinine [Mass/Vol] 1.13 mg/dL High 0.57 - 1.11 mg/dL [facility] GFR/1.73 sq M.predicted (S/P/Bld) [Vol rate/Area] 48.1 mL/min Low - PINF [facility] Comment on above: Calculation based on the Chronic Kidney Disease Epidemiology Collaboration (CKD-EPI) equation refit without adjustment for race Glucose [Mass/Vol] 153 mg/dL High 82 - 115 mg/dL [facility] Interpretation and review of laboratory results Abnormal [facility] Potassium [Moles/Vol] 3.9 mmol/L 3.5 - 5.1 mmol/L [facility] Comment on above: Plasma potassium chris ues may be up to 0.5 mmol/L lower than serum values. Protein [Mass/Vol] 5.2 g/dL Low 6.4 - 8.3 g/dL [facility] Sodium [Moles/Vol] 139 mmol/L 136 - 145 mmol/L [facility] Urea nitrogen [Mass/Vol] 26 mg/dL High 9 - 23 mg/dL [facility] Nursing Noteon 08-04-2024 Nursing Note Bedside swallow completed. Pt passed and tolerated well tolerated well. Normal [facility] Progress Noteon 08-04-2024 Progress Note Normal [facility] 30on 08-03-2024 30 Normal [facility] 30 Normal [facility] 30 Normal [facility] [id number] 08-03-2024 [id number] Normal [facility] BASIC METABOLIC PANELon 07-18 Anion gap [Moles/Vol] 6 mmol/L Normal 3-13 [facility] Comment on above: Performed By: #### L AB15 ####Patient Services Technician: VELMA VALADEZ ([phone])[facility] ([facility])[address] [place] [address] Calcium [Mass/Vol] 8.5 mg/dL Low 8.8-10.0 [facility] Comment on above: Performed By: #### L AB15 ####Patient Services Technician: VELMA VALADEZ ([phone])[facility] ([facility])[address] [place] [address] [place] Chloride [Moles/Vol] 105 mmol/L Normal 98-107 [facility] Comment on above: Performed By: #### L AB15 ####Patient Services Technician: VELMA VALADEZ ([phone])[facility] ([facility])[address] [place] [address] CO2 [Moles/Vol] 27 mmol/L Normal 23-31 [facility] Comment on above: Performed By: #### L AB15 ####Patient Services Technician: VELMA VALADEZ ([phone])[facility] ([facility])[address] [place] [address] Creatinine [Mass/Vol] 1.18 mg/dL High 0.57-1.11 [facility] Comment on above: Performed By: #### L AB15 ####Patient Services Technician: VELMA VALADEZ ([phone])[facility] ([facility])[address] [place] [address] [place] GLOMERULAR FILTRATION RATE ML/MIN/1.73 SQ M.PREDICTED 45.6 mL/min/1.73m*2 Low >60.0 [facility] Comment on above: Result Comment: Calc ulation based on the Chronic Kidney Disease Epidemiology Collaboration (CKD-EPI) equation refit without adjustment for race Performed By: #### L AB15 ####Patient Services Technician: VELMA VALADEZ ([phone])[facility] ([facility])[address] [place] [address] [place] Glucose [Mass/Vol] 100 mg/dL Normal 82-115 [facility] Comment on above: Performed By: #### L AB15 ####Patient Services Technician: VELMA VALADEZ ([phone])[facility] ([facility])[address] [place] [address] Potassium [Moles/Vol] 4.7 mmol/L Normal 3.5-5.1 [facility] Comment on above: Result Comment: [facility] potassium values may be up to 0.5 mmol/L lower than serum values. Performed By: #### L AB15 ####Patient Services Technician: VELMA VALADEZ ([phone])[facility] ([facility])[address] [place] [address] Sodium [Moles/Vol] 138 mmol/L Normal 136-145 [facility] Comment on above: Performed By: #### L AB15 ####Patient Services Technician: VELMA VALADEZ ([phone])[facility] ([facility])[address] [place] [address] Urea nitrogen [Mass/Vol] 33 mg/dL High 9-23 [facility] Comment on above: Performed By: #### L AB15 ####Patient Services Technician: VELMA VALADEZ ([phone])[facility] ([facility])[address] [place] [address] Basic metabolic 1998 panelOr dered By: Juni Millard on 08-03-2024 Anion gap [Moles/Vol] 6 mmol/L 3 - 13 mmol/L [facility] Calcium [Mass/Vol] 8.5 mg/dL Low 8.8 - 10. 0 mg/dL [facility] Chloride [Moles/Vol] 105 mmol/L 98 - 10 7 mmol/L [facility] CO2 [Moles/Vol] 27 mmol/L 23 - 31 mmol/L [facility] Creatinine [Mass/Vol] 1.18 mg/dL High 0.57 - 1.11 mg/dL [facility] GFR/1.73 sq M.predicted (S/P/Bld) [Vol rate/Area] 45.6 mL/min Low - PINF [facility] Comment on above: Calculation based on the Chronic Kidney Disease Epidemiology Collaboration (CKD-EPI) equation refit without adjustment for race Glucose [Mass/Vol] 100 mg/dL 82 - 115 mg/dL [facility] Interpretation and review of laboratory results Abnormal [facility] Potassium [Moles/Vol] 4.7 mmol/L 3.5 - 5.1 mmol/L [facility] Comment on above: Plasma potassium chris ues may be up to 0.5 mmol/L lower than serum values. Sodium [Moles/Vol] 138 mmol/L 136 - 145 mmol/L [facility] Urea nitrogen [Mass/Vol] 33 mg/dL High 9 - 23 mg/dL [facility] CBC W Auto Differential pane l (Bld)Ordered By: Christin Mayes on 08-03-2024 Erythrocyte distribution width (RBC) [Ratio] 19.4 % High 11.5 - 15.0 % [facility] Hematocrit (Bld) [Volume fraction] 38.7 % 35.0 - 47.0 % [facility] Hemoglobin (Bld) [Mass/Vol] 12.1 g/dL 11.7 - 16.0 g/dL [facility] MCH (RBC) [Entitic mass] 26 pg 26.0 - 34.0 pg [facility] MCHC (RBC) [Mass/Vol] 31.3 % 30.5 - 36.0 % [facility] MCV (RBC) [Entitic vol] 83.2 fL 77.0 - 99.0 fL [facility] Nucleated RBC/100 WBC (Bld) [Ratio] 0 % [facility] Platelet mean volume (Bld) [Entitic vol] 9.8 fL 9.0 - 12.7 fL [facility] Comment on above: MPV is a calculated measurement using platelet volume ratio Platelets (Bld) [#/Vol] 303 10*3/uL 140 - 440 10*3/uL [facility] RBC (Bld) [#/Vol] 4.65 10*6/uL 3.80 - 5.2 0 10*6/uL [facility] WBC (Bld) [#/Vol] 9.1 10*3/uL 3.6 - 10.7 10*3/uL [facility] CBC WITH AUTO DIFFERENTIALon 08-03-2024 Erythrocyte distribution width (RBC) [Ratio] 19.4 % High 11.5-15.0 [facility] Comment on above: Performed By: #### L [id number], [id number] ####Patient Services Technician: VELMA VALADEZ ([phone])[facility]ITALSimran [facility] (SW[facility]iffanieSAT[facility])[address] [place] [address] Hematocrit (Bld) [Volume fraction] 38.7 % Normal 35.0-47.0 [facility] Comment on above: Performed By: #### L [id number], [id number] ####Patient Services Technician: VELMA VALADEZ ([phone])[facility] HOSPITALSimran [facility] ([facility])[address] [place] [address] Hemoglobin (Bld) [Mass/Vol] 12.1 g/dL Normal 11.7-16.0 [facility] Comment on above: Performed By: #### L [id number], [id number] ####Patient Services Technician: VELMA VALADEZ ([phone])[facility]OSPITALSim[facility] ([facility])[address] [place] [address] MCH (RBC) [Entitic mass] 26.0 pg Normal 26.0-34.0 [facility] Comment on above: Performed By: #### Weston [id number], [id number] ####Patient Services Technician: VELMA VALADEZ ([phone])[facility]ITALSim[facility] ([facility])[address] [place] [address] MCHC 31.3 % Normal 30.5-36.0 [facility] Comment on above: Performed By: #### L [id number], [id number] ####Patient Services Technician: VELMA VALADEZ ([phone])[facility]ITALSim[facility] ([facility])[address] [place] [address] MCV (RBC) [Entitic vol] 83.2 fL Normal 77.0-99.0 [facility] Comment on above: Performed By: #### L [id number], [id number] ####Patient Services Technician: VELMA VALADEZ ([phone])[facility]ITALSim[facility] ([facility])[address] [place] [address] NRBC 0.0 /100 WBCs Normal 0.0-2.0 [facility] Comment on above: Performed By: #### L [id number], [id number] ####Patient Services Technician: VELMA VALADEZ ([phone])[facility] ([facility])[address] Platelet mean volume (Bld) [Entitic vol] 9.8 fL Normal 9.0-12.7 [facility] Comment on above: Result Comment: MPV is a calculated measurement using platelet volume ratio Performed By: #### L [id number], [id number] ####Patient Services Technician: VELMA VALADEZ ([phone])[facility]ITALSim[facility] ([facility])[address] Platelets (Bld) [#/Vol] 303 10*3/uL Normal 140-440 [facility] Comment on above: Performed By: #### L [id number], [id number] ####Patient Services Technician: VELMA VALADEZ ([phone])[facility]OSPITALSimran VERDINT[facility] ([facility])[address] [place] [address] RBC (Bld) [#/Vol] 4.65 10*6/uL Normal 3.80-5.20 [facility] Comment on above: Performed By: #### L [id number], [id number] ####Patient Services Technician: VELMA VALADEZ ([phone])[facility]ITALSim[facility] ([facility])[address] [place] [address] WBC (Bld) [#/Vol] 9.1 10*3/uL Normal 3.6-10.7 [facility] Comment on above: Performed By: #### L [id number], [id number] ####Patient Services Technician: VELMA VALADEZ ([phone])[facility]ITALSim[facility] ([facility])[address] COMPREHENSIVE METABOLIC PANE Gilberto 08-03-2024 Albumin [Mass/Vol] 2.8 g/dL Low 3.4-4.8 [facility] Comment on above: Performed By: #### L AB17, [id number], LAB99 ####Patient Services Technician: VELMA VALADEZ ([phone])[facility]OSPITALSim[facility] ([facility])[address] [place] [address] [place] ALP [Catalytic activity/Vol] 82 U/L Normal 40-150 [facility] Comment on above: Performed By: #### Weston AB17, [id number], LAB99 ####Patient Services Technician: VELMA VALADEZ ([phone])[facility]ITALSim[facility] ([facility])[address] [place] [address] [place] ALT [Catalytic activity/Vol] 26 U/L Normal <30 [facility] Comment on above: Performed By: #### [place]on REIS17, [id number], LAB99 ####Patient Services Technician: VELMA VALADEZ ([phone])[facility] HOSPITALSimran SANCHEZROSANGELA RITTMAN ([facility])[address] Anion gap [Moles/Vol] 9 mmol/L Normal 3-13 [facility] Comment on above: Performed By: #### Weston REIS17, HAR116, LAB99 ####Patient Services Technician: VELMA VALADEZ ([phone])[facility]ITALSimran SANCHEZROSANGELA RITTMAN ([facility])[address] [place] [address] [place] AST [Catalytic activity/Vol] 36 U/L High <34 [facility] Comment on above: Result Comment: TCSi gnificant interference from hemolysis. Result integrity compromised. Interpret with caution. Performed By: #### [place]on REIS17, [id number], LAB99 ####Patient Services Technician: VELMA VALADEZ ([phone])[facility]OSPITALSimran SANCHEZROSANGELA RITTMAN ([facility])[address] Bilirubin [Mass/Vol] 0.7 mg/dL Normal <1.2 [facility] Comment on above: Performed By: #### L AB17, [id number], LAB99 ####Patient Services Technician: VELMA VALADEZ ([phone])[facility]ITALSimran SANCHEZROSANGELA RITTMAN ([facility])[address] [place] [address] [place] Calcium [Mass/Vol] 9.0 mg/dL Normal 8.8-10.0 [facility] Comment on above: Performed By: #### Weston AB17, [id number], LAB99 ####Patient Services Technician: VELMA VALADEZ ([phone])[facility]ITALSim[facility] ([facility])[address] [place] [address] [place] Chloride [Moles/Vol] 109 mmol/L High 98-107 [facility] Comment on above: Performed By: #### Weston AB17, [id number], LAB99 ####Patient Services Technician: VELMA VALADEZ ([phone])[facility]ITALSimran SANCHEZROSANGELA RITTMAN ([facility])[address] [place] [address] [place] CO2 [Moles/Vol] 21 mmol/L Low 23-31 [facility] Comment on above: Performed By: #### Weston REIS17, [id number], LAB99 ####Patient Services Technician: VELMA VALADEZ ([phone])[facility]OSPITALSimran [facility] ([facility])[address] [place] [address] [place] Creatinine [Mass/Vol] 1.30 mg/dL High 0.57-1.11 [facility] Comment on above: Performed By: #### Weston HOLLY, [id number], LAB99 ####Patient Services Technician: VELMA VALADEZ ([phone])[facility]ITALSim[facility] ([facility])[address] [place] [address] [place] GLOMERULAR FILTRATION RATE ML/MIN/1.73 SQ M.PREDICTED 40.6 mL/min/1.73m*2 Low >60.0 [facility] Comment on above: Result Comment: Calc ulation based on the Chronic Kidney Disease Epidemiology Collaboration (CKD-EPI) equation refit without adjustment for race Performed By: #### Weston AB17, [id number], LAB99 ####Patient Services Technician: VELMA VALADEZ ([phone])[facility]ITALSim[facility] ([facility])[address] [place] [address] [place] Glucose [Mass/Vol] 103 mg/dL Normal 82-115 [facility] Comment on above: Performed By: #### L AB17, [id number], LAB99 ####Patient Services Technician: VELMA VALADEZ ([phone])[facility] HOSPITALA ROSANGELA RITTMAN ([facility])[address] [place] [address] [place] Potassium [Moles/Vol] 5.9 mmol/L High 3.5-5.1 [facility] Comment on above: Result Comment: TCSi gnificant interference from hemolysis. Result integrity compromised. Interpret with caution. Performed By: #### Weston AB17, [id number], LAB99 ####Patient Services Technician: VELMA VALADEZ ([phone])[facility]ITALSim[facility] ROSANGELA RITTMAN ([facility])[address] Protein [Mass/Vol] 6.7 g/dL Normal 6.4-8.3 [facility] Comment on above: Result Comment: TCPo tential interference from hemolysis Performed By: #### Weston REIS17, [id number], LAB99 ####Patient Services Technician: VLEMA VALADEZ ([phone])[facility]ITALA ROSANGELA RITTMAN ([facility])[address] [place] [address] [place] Sodium [Moles/Vol] 139 mmol/L Normal 136-145 [facility] Comment on above: Performed By: #### [place]on REIS17, [id number], LAB99 ####Patient Services Technician: VELMA VALADEZ ([phone])[facility]ITALSim[facility] ROSANGELA RITTMAN ([facility])[address] [place] [address] [place] Urea nitrogen [Mass/Vol] 34 mg/dL High 9-23 [facility] Comment on above: Performed By: #### L AB17, [id number], LAB99 ####Patient Services Technician: VELMA VALADEZ ([phone])[facility]ITALA ROSANGELA [facility]AN ([facility])[address] ABDOMEN PELVIS WO IV CONT RASTon 08-03-2024 CT ABDOMEN PELVIS WO IV CONTRAST Normal [facility] CT Abdomen and Pelvis WO con traston 08-03-2024 1. Extensive colonic diverticulosis without evidence of diverticulitis 2. Consolidation in the medial left lower lobe, possibly pneumonia 3. No bowel dilatation Report Dictated on Electronically Signed By: Ming Fry MD Electronically Signed Date/Time: 08/03/2024 4:05 AM EST [employer] [facility] 1940 [id number] Exam Date/Time: 08/03/2024 03:05 Procedure: CT ABDOMEN [...] Lymph nodes: Unremarkable. No enlarged lymph nodes. [employer] Ming Fry MD - 08/03/2024 Patient Name: MEL POP : 1940 [facility]#: [id number] Exam Date/Time: 08/03/2024 03:05 Procedure: CT ABDOMEN [...] Electronically Signed Date/Time: 08/03/2024 4:05 AM EST [facility] Radiology Study observation (narrative) Inna Shannon alth CT Abdomen and Pelvis WO con trastOrdered By: Ming Fry on 08-03-2024 [facility] [employer] Work Phone: Comprehensive metabolic 1998 panelon 08-03-2024 Albumin [Mass/Vol] 2.8 g/dL Low 3.4 - 4.8 g/dL [facility] ALP [Catalytic activity/Vol] 82 U/L 40 - 150 U/L [facility] ALT [Catalytic activity/Vol] 26 U/L NINF - 30 U/L [facility] Anion gap [Moles/Vol] 9 mmol/L 3 - 13 mmol/L [facility] AST [Catalytic activity/Vol] 36 U/L High [facility] U/L [facility] Comment on above: TC Significant interference from hemolysis. Result integrity compromised. Interpret with caution. Bilirubin [Mass/Vol] 0.7 mg/dL NINF - 1.2 mg/dL [facility] Calcium [Mass/Vol] 9 mg/dL 8.8 - 10. 0 mg/dL [facility] Chloride [Moles/Vol] 109 mmol/L High 98 - 10 7 mmol/L [facility] CO2 [Moles/Vol] 21 mmol/L Low 23 - 31 mmol/L [facility] Creatinine [Mass/Vol] 1.3 mg/dL High 0.57 - 1.11 mg/dL [facility] GFR/1.73 sq M.predicted (S/P/Bld) [Vol rate/Area] 40.6 mL/min Low - PINF [facility] Comment on above: Calculation based on the Chronic Kidney Disease Epidemiology Collaboration (CKD-EPI) equation refit without adjustment for race Glucose [Mass/Vol] 103 mg/dL 82 - 115 mg/dL [facility] Interpretation and review of laboratory results Abnormal [facility] Potassium [Moles/Vol] 5.9 mmol/L High 3.5 - 5.1 mmol/L [facility] Comment on above: TC Significant interference from hemolysis. Result integrity compromised. Interpret with caution. Protein [Mass/Vol] 6.7 g/dL 6.4 - 8.3 g/dL [facility] Comment on above: TC Potential interference from hemolysis Sodium [Moles/Vol] 139 mmol/L 136 - 145 mmol/L [facility] Urea nitrogen [Mass/Vol] 34 mg/dL High 9 - 23 mg/dL [facility] ED Nursing Noteon 08-03-2024 ED Nursing Note Pt placed in roundtrip Normal [facility] ED Nursing Note ED CT and ED xray notified that patient is ready Normal [facility] ED Provider Noteon ED Provider Note Normal [facility] GASTROINTESTINAL PCR PANELon 08-03-2024 GASTROINTESTINAL PCR PANEL Normal [facility] Comment on above: Performed By: #### L [id number] ####Patient Services Technician: VELMA VALADEZ ([phone])[facility] ([address] Gastrointestinal pathogens p masoud OXANA+probe (Stl)Ordered By: Maximus Dimas on 08-03-2024 Adenovirus F 40/41 Not detected Not Detected [facility] Astrovirus Not detected Not Detected [facility] Campylobacter Not detected Not Detected [facility] Cryptosporidium Not detected Not Detected [facility] Cyclospora cayetanensis Not detected Not Detected [facility] Entamoeba histolytica Not detected Not Detected [facility] Enterotoxigenic E coli (ETEC) Not detected Not Detected [facility] Giardia lamblia Not detected Not Detected [facility] Interpretation and review of laboratory results Abnormal [facility] Norovirus GI/GII Detected Abnormal Not Detected [facility] Plesiomonas shigelloides Not detected Not Detected [facility] Rotavirus A Not detected Not Detected [facility] Salmonella Not detected Not Detected [facility] Sapovirus Not detected Not Detected [facility] Shiga toxin-producing E coli (STEC) Not detected Not Detected [facility] Shigella/Enteroinvasive E coli (EIEC) Not detected Not Detected [facility] Vibrio cholerae Not detected Not Detected [facility] Vibrio species Not detected Not Detected [facility] Yersinia enterocolitica Not detected Not Detected [facility] A positive Norovirus result on the Film Array GI panel should be interpreted in the context of the patient's history and clinical picture. If results are not consistent, result should be confirmed with a Norovirus specific assay. Methodology: Multiplex PCR [facility] LACTIC ACID WITH REFLEXon Lactate [Moles/Vol] 1.9 mmol/L Normal 0.5-2.2 [facility] Comment on above: Performed By: #### L [id number] ####Patient Services Technician: VELMA VALADEZ ([phone])[facility] ([facility])[address] [place] [address] LIPASEon 08-03-2024 Lipase [Catalytic activity/Vol] 8 U/L Normal <55 [facility] Comment on above: Performed By: #### L [id number], [id number], [id number] ####Patient Services Technician: VELMA VALADEZ ([phone])[facility] ([facility])[address] [place] [address] Laboratory - Chemistry and C hemistry - challengeon 08-03-2024 Lactate [Moles/Vol] 1.9 mmol/L 0.5 - 2. 2 mmol/L [facility] Anion gap (Bld) [Moles/Vol] 8 mmol/L 3.00 - 13.00 [facility] Calcium.ionized (Bld) [Moles/Vol] 4.7 mg/dl 4.30 - 5.20 mg/dl [facility] Chloride [Moles/Vol] 107 mmol/L 98 - 11 4 mmol/L [facility] CO2 [Moles/Vol] 23 mmol/L 21 - 29 mmol/L [facility] Creatinine [Mass/Vol] 1.3 mg/dL 0.6 - 1.3 mg/dL [facility] GFR/1.73 sq M.predicted CKD-EPI (S/P/Bld) [Vol rate/Area] 40.6 [facility] Comment on above: KDIGO guidelines pro vide [...] 118 mg/dL High 70 - 100 mg/dL [facility] Potassium [Moles/Vol] 4.3 mmol/L 3.4 - 5.1 mmol/L [facility] Sodium [Moles/Vol] 138 mmol/L 133 - 145 mmol/L [facility] Urea (Bld) [Mass/Vol] 33 mg/dL High 4 - 22 mg/dL [facility] Lipase [Catalytic activity/Vol] 8 U/L NINF - 55 U/L [facility] Magnesium [Mass/Vol] 1.9 mg/dL 1.6 - 2 .6 mg/dL [facility] Laboratory - Microbiology an d Antimicrobial susceptibilityon 08-03-2024 FLUAV RNA OXANA+probe Ql (Resp) Not detected Not Detected [facility] FLUBV RNA OXANA+probe Ql (Resp) Not detected Not Detected [facility] RSV RNA OXANA+probe Ql (Resp) Not detected Not Detected [facility] SARS-CoV-2 (COVID-19) RNA OXANA+probe Ql (Resp) Not detected Not Detected [facility] SARS-CoV-2 (COVID-19) RNA OXANA+probe Ql (Unsp spec) Methodology: real-time, RT-PCR The SARS-CoV-2, Flu A/B, and RSV Combo assay is intended for in vitro diagnostic use under the FDA Emergency Use Authorization (EUA). This test has not been FDA cleared or approved. In compliance with this authorization, please visit www.fda.gov/media/41984 5/download or www.fda.gov/media/28558 6/download to access the applicable information sheets. [facility] MAGNESIUMon 08-03-2024 Magnesium [Mass/Vol] 1.9 mg/dL Normal 1.6-2.6 [facility] Comment on above: Result Comment: BUBBA Garcia COMMENTS:Higher values can be expected in females during menses. Performed By: #### L [id number], [id number], LAB99 ####Patient Services Technician: VELMA VALADEZ ([phone])[facility] ([facility])[address] [place] [address] MANUAL DIFFERENTIALon 2024 BASOPHILS (10*3/UL) IN BLOOD BY MANUAL COUNT 0.0 10*3/uL Normal 0.0-0.2 [facility] Comment on above: Performed By: #### L [id number], [id number] ####Patient Services Technician: VELMA VALADEZ ([phone])[facility] ([facility])[address] [place] [address] [place] BASOPHILS TOTAL PER COUNTED LEUKOCYTES BY MANUAL COUNT 0 Normal [facility] Comment on above: Performed By: #### L [id number], [id number] ####Patient Services Technician: VELMA VALADEZ ([phone])[facility] ([facility])[address] [place] [address] [place] BASOPHILS/100 LEUKOCYTES IN BLOOD BY MANUAL COUNT 0 % Normal 0-2 [facility] Comment on above: Performed By: #### [place] [id number], [id number] ####Patient Services Technician: VELMA VALADEZ ([phone])[facility] ([facility])[address] [place] [address] [place] CELLS COUNTED TOTAL (#) IN BLOOD 100 Normal [facility] Comment on above: Performed By: #### [place] [id number], [id number] ####Patient Services Technician: VELMA VALADEZ ([phone])[facility] ([facility])[address] [place] [address] [place] DIFFERENTIAL METHOD Automated differenti al reported after manual slide review Normal [facility] Comment on above: Performed By: #### L [id number], [id number] ####Patient Services Technician: VELMA VALADEZ ([phone])[facility] ([facility])[address] [place] [address] [place] EOSINOPHILS (10*3/UL) IN BLOOD BY MANUAL COUNT 0.1 10*3/uL Normal 0.0-0.5 [facility] Comment on above: Performed By: #### L [id number], [id number] ####Patient Services Technician: VELMA VALADEZ ([phone])[facility] ([facility])[address] [place] [address] [place] EOSINOPHILS TOTAL PER COUNTED LEUKOCYTES BY MANUAL COUNT 1 Normal 0-1 [facility] Comment on above: Performed By: #### L [id number], [id number] ####Patient Services Technician: VELMA VALADEZ ([phone])[facility] ([facility])[address] [place] [address] [place] EOSINOPHILS/100 LEUKOCYTES IN BLOOD BY MANUAL COUNT 1 % Normal 0-6 [facility] Comment on above: Performed By: #### L [id number], [id number] ####Patient Services Technician: VELMA VALADEZ ([phone])[facility] SANCHEZROSANGELA [facility] ([facility])[address] [place] [address] [place] LEUKOCYTE MORPHOLOGY FINDING IN BLOOD Normal Normal [facility] Comment on above: Performed By: #### L [id number], [id number] ####Patient Services Technician: VELMA VALADEZ ([phone])[facility] SANCHEZROSANGELA [facility] ([facility])[address] [place] [address] [place] LEUKOCYTES (10*3/UL) NUCLEATED ERYTHROCYTE ADJUST 9.1 10*3/uL Normal 3.6-10.7 [facility] Comment on above: Performed By: #### L [id number], [id number] ####Patient Services Technician: VELMA VALADEZ ([phone])[facility] SANCHEZROSANGELA [facility] ([facility])[address] [place] [address] [place] LYMPHOCYTES (10*3/UL) IN BLOOD BY MANUAL COUNT 0.5 10*3/uL Low 1.0-4.3 [facility] Comment on above: Performed By: #### L [id number], [id number] ####Patient Services Technician: VELMA VALADEZ ([phone])[facility]ITAL[facility] SANCHEZROSANGELA [facility] ([facility])[address] [place] [address] [place] LYMPHOCYTES TOTAL PER COUNTED LEUKOCYTES BY MANUAL COUNT 5 Normal [facility] Comment on above: Performed By: #### L [id number], [id number] ####Patient Services Technician: VELMA VALADEZ ([phone])[facility] ([facility])[address] [place] [address] [place] LYMPHOCYTES/100 LEUKOCYTES IN BLOOD BY MANUAL COUNT 5 % Low 15-45 [facility] Comment on above: Performed By: #### L [id number], [id number] ####Patient Services Technician: VELMA VALADEZ ([phone])[facility] ([facility])[address] [place] [address] [place] MONOCYTES (10*3/UL) IN BLOOD BY MANUAL COUNT 0.5 10*3/uL Normal 0.0-0.9 [facility] Comment on above: Performed By: #### L [id number], [id number] ####Patient Services Technician: VELMA VALADEZ ([phone])[facility] ([facility])[address] [place] [address] [place] MONOCYTES TOTAL PER COUNTED LEUKOCYTES BY MANUAL COUNT 6 Normal [facility] Comment on above: Performed By: #### L [id number], [id number] ####Patient Services Technician: VELMA VALADEZ ([phone])[facility] ([facility])[address] [place] [address] [place] MONOCYTES/100 LEUKOCYTES IN BLOOD BY MANUAL COUNT 6 % Normal 5-13 [facility] Comment on above: Performed By: #### L [id number], [id number] ####Patient Services Technician: VELMA VALADEZ ([phone])[facility] ([facility])[address] [place] [address] [place] NEUTROPHILS (SEGS+BANDS) (10*3/UL) BY MANUAL COUNT 7.9 10*3/uL High 1.8-7.0 [facility] Comment on above: Performed By: #### L [id number], [id number] ####Patient Services Technician: VELMA VALADEZ ([phone])[facility] ([facility])[address] [place] [address] [place] NEUTROPHILS TOTAL PER COUNTED LEUKOCYTES BY MANUAL COUNT 87 Normal [facility] Comment on above: Performed By: #### L [id number], [id number] ####Patient Services Technician: VELMA VALADEZ ([phone])[facility] ([facility])[address] [place] [address] [place] PLATELET MORPHOLOGY IN BLOOD Normal Normal [facility] Comment on above: Performed By: #### L [id number], [id number] ####Patient Services Technician: VELMA VALADEZ ([phone])[facility] ([facility])[address] [place] [address] [place] RBC MORPHOLOGY IN BLOOD Normal Normal [facility] Comment on above: Performed By: #### L [id number], [id number] ####Patient Services Technician: VELMA VALADEZ ([phone])[facility] ([facility])[address] [place], [place] [address] [place] SEGEMENTED NEUTROPHILS/100 LEUKOCYTES BY MANUAL COUNT 87 % High 38-82 [facility] Comment on above: Performed By: #### L [id number], [id number] ####Patient Services Technician: VELMA VALADEZ ([phone])[facility] ([facility])[address] [place] [address] [place] UNCLASSIFIED CELLS (10*3/UL) IN BLOOD BY MANUAL COUNT 0.1 10*3/uL Normal [facility] Comment on above: Performed By: #### L [id number], [id number] ####Patient Services Technician: VELMA VALADEZ ([phone])[facility] ([facility])[address] [place] [address] [place] UNCLASSIFIED CELLS/100 LEUKOCYTES IN BLOOD 1.00 % Normal [facility] Comment on above: Performed By: #### L [id number], [id number] ####Patient Services Technician: VELMA VALADEZ ([phone])[facility] ([facility])[address] [place] [address] [place] Magnesium [Mass/Vol]on 08-03 Higher values can be expected in females during menses. [facility] Manual differential performe d Ql (Bld)on 08-03-2024 Basophils (Bld) [#/Vol] 0 10*3/uL 0.0 - 0.2 10*3/uL [facility] [employer] Basophils Manual 0 [facility] Basophils/100 WBC (Bld) 0 % 0 - 2 % [facility] Cells Counted Total (Bld) [#] 100 {cells} [facility] Differential Method Automated differenti al reported after manual slide review [facility] Eosinophils (Bld) [#/Vol] 0.1 10*3/uL 0.0 - 0.5 10*3/uL [facility] Eosinophils Manual 1 0 - 1 [facility] Eosinophils/100 WBC (Bld) 1 % 0 - 6 % [facility] Leukocyte morphology finding Nom (Bld) Normal [facility] Lymphocytes (Bld) [#/Vol] 0.5 10*3/uL Low 1.0 - 4.3 10*3/uL [facility] Lymphocytes Manual 5 [facility] Lymphocytes/100 WBC (Bld) 5 % Low 15 - 45 % [facility] Monocytes (Bld) [#/Vol] 0.5 10*3/uL 0.0 - 0.9 10*3/uL [facility] Monocytes Manual 6 [facility] Monocytes/100 WBC (Bld) 6 % 5 - 13 % [facility] Neutrophils (Bld) [#/Vol] 7.9 10*3/uL High 1.8 - 7.0 10*3/uL [facility] Neutrophils Manual 87 [facility] Platelet morphology finding Nom (Bld) Normal [facility] RBC morphology finding Nom (Bld) Normal [facility] Segmented neutrophils/100 WBC (Bld) 87 % High 38 - 82 % [facility] Unclassified Cells % 1 % [facility] Unclassified Cells, Abs. 0.1 10*3/uL [facility] WBC corrected for nucl RBC (Bld) [#/Vol] 9.1 10*3/uL 3.6 - 10.7 10*3/uL [facility] No Panel Informationon 08-03 Interpretation and review of laboratory results Normal [facility] Interpretation and review of laboratory results Abnormal [facility] Performed by: Inna Adames Galt [facility], [address] [place] [address] CLIA ID: [id number] [facility] Interpretation and review of laboratory results Normal [facility] No Panel InformationOrdered By: Christin Mayes on 08-03-2024 Interpretation and review of laboratory results Abnormal [facility] SARS-COV-2, FLU A/B, AND RSV COMBOon 08-03-2024 SARS-CoV-2 (COVID-19) RNA OXANA+probe Ql (Unsp spec) Normal [facility] Comment on above: Performed By: #### L [id number] ####Patient Services Technician: VELMA VALADEZ ([phone])[facility] ([facility])[address] [place] [address] SARS-CoV-2, Flu A/B, and RSV Comboon 08-03-2024 Interpretation and review of laboratory results Normal [facility] XR Chest Single viewon 08-03 No acute abnormality Report Dictated on Electronically Signed By: Ming Fry MD Electronically Signed Date/Time: 08/03/2024 3:33 AM EST [facility] [employer] Patient Name: MEL CARVER RD : [...] within the right humerus. No acute fracture. [facility] Ming Fry MD - 08/03/2024 Patient [...] Electronically Signed Date/Time: 08/03/2024 3:33 AM EST [employer] Radiology Study observation (narrative) [facility] XR Chest Single viewOrdered By: Ming Fry on 08-03-2024 [employer] Work Phone: ANES POSTPROC EVALon 025 ANES POSTPROC EVAL HNO ID: [id number] Author: ROBINSON BRUNNER MD Service: ? Author Type: Anesthesiologist Type: Anesthesia Postprocedure Evaluation Filed: 07/31/2024 12:48 Note Text: POST ANESTHESIA EVALUATION NOTE : 1940 Procedure Summary Date: 07/27/24 Room / Location: [address] Anesthesia Start: 1114 Anesthesia Stop: 1322 Procedures: VITRECTOMY 25G [facility] PARS PLANA APPROACH W/ REMOVAL OF PRERETINAL [...] with this procedure. Documented by Mikhail Nichols APRN.LOOM MECHANIC 07/27/2024 1:22 PM EST SIGNATURE: Robinson Pizano MD PATIENT NAME: Mel Castillo DATE: July 31, 2024 TIME: 12:46 PM CSN: [id number] Normal [facility] ANES PRE-OPon 07-27-2024 ANES PRE-OP HNO ID: [id number] Author: ROBINSON BRUNNER MD Service: ? Author Type: Anesthesiologist Type: Anesthesia Preprocedure Evaluation Filed: 07/27/2024 11:10 Note Text: ANESTHESIOLOGY DAY OF SURGERY NOTE : 1940 Procedure Information Date/Time: 07/27/24 1110 Procedures: [facility] PARS [facility] APPROACH W/ REMOVAL OF PRERETINAL CELLULAR MEMBRANE (Right: Eye) RELEASE OF VITREOUS, CHOROIDAL FLUID, PARS PLANA APPROACH (Right: Eye) Location: [place] [address] / [facility] Surgeons: Savana Lopez MD Estimated [...] and consent discussed: yes. Patient / Responsible Democrat agrees to proceed: yes Patient / Surrogate [...] tiotropium 2.5 (more content not included)... Normal [facility] OPERATIVE NOon 07-27-2024 OPERATIVE NO HNO ID: [id number] Author: SAVANA LOPEZ MD Service: Ophthalmology Author Type: Physician Type: Operative Report Filed: 07/27/2024 13:20 Note Text: [place] [id number] [place] [facility] OPERATIVE REPORT LOG ID: [id number] Surgery/Procedure Date: 07/27/2024 Incision/Procedure Start Time: 11:39 AM Incision Close/Procedure End Time: 1:07 PM NAME: Mel Pop [facility] #: [id number] SURGEON(S) AND OFFICE SERVICES CLERK(S): Surgeons and Role: Panel 1: * Savana [...] was repaired by the use of max glove cutter forceps and vitreous cutter. This was a [...] times thro (more content not included)... Normal [facility] BSCAN OD (RIGHT EYE)on 07-[address] [facility] Right eye Photo documentatio non 07-24-[address] [facility] BSCAN OD (RIGHT EYE)on 07-23 Radiology Study observation (narrative) [facility] Right eye Photo documentatio non 07-23-2024 Radiology Study [facility] (narrative[facility] CASE MANAGEMon 07-18-2024 CASE MANAGEM HNO ID: [id number] Author: DOMINIQUE RAMSAY LSW Service: ? Author Type: Prosthetic Dentist Type: Care Mgt Progress Note Filed: 07/18/2024 11:21 Note Text: CARE MANAGEMENT DISCHARGE NOTE SERVICE DATE: July 18, 2024 SERVICE TIME: 11:19 AM Admission Date: 07/07/2024 LOS: 11 days Discharge Arrangement Discharge Arrangement: Shelter Facility Services Arranged Medical Services: Other: See Comment (N/A) Caregiver Assessment Caregiver is ready, willing and able to meet the patient's needs as recommended by the inter-professional team: Yes Name of Caregiver: Rosangela Tomlin Transportation Arrangements Transportation Arrangements: Ambulance Transportation Agency and Phone #:: [facility] [phone] Date of Trip: 07/18/24 Time of Trip: 1100 Type of Service: BLS Non-emergency Handoff Communication: Handoff to: Primary Care Physician Primary Care Physician Name/Phone: Jared Evans Additional Information: Discharge Information Row Name Admission (Current) from 07/07/2024 in [facility] [address] [place] [address] Patient d/c ready to [facility] via [facility] with picker machine operator scheduled for 11am today by Stretcher. Patient aware of plan. Bedside RN aware of plan and provided number to call report for nurse report; call [phone] :) Psych Tech can transfer you to the 2nd floor. . 7000 and DC instructions sent to [facility] via [email or web address] and are in DC packet. DC packet in chart to go with patient. SIGNATURE: SHAQUILLE Garay PATIENT NAME: Mel Castillo DATE: July 18, 2024 TIME: 11:19 AM Normal [facility] CBC panel Auto (Bld)on 07-18 Erythrocyte distribution width (RBC) [Ratio] 17.5 % High 11.5-15.0 [facility] Comment on above: Order Comment: Speci men Type: BLOOD SPECIMEN Ordering Facility: [facility] Address: [address] [place] [address] Performed By: #### 5 8410-2 #### [facility] CLIA [id number] [address] [place] [address] [place] Hematocrit (Bld) [Volume fraction] 33.8 % Low 36.0-46.0 [facility] Comment on above: Order Comment: Speci men Type: BLOOD SPECIMEN Ordering Facility: [facility] Address: [address] [place] [address] Performed By: #### 5 8410-2 #### [facility] CLIA [id number] [address] [place] [address] [place] Hemoglobin (Bld) [Mass/Vol] 10.5 g/dL Low 11.5-15.5 [facility] Comment on above: Order Comment: Speci men Type: BLOOD SPECIMEN Ordering Facility: [facility] Address: [address] [place] [address] Performed By: #### 5 8410-2 #### [facility] CLIA [id number] [address] [place] [address] [place] MCH (RBC) [Entitic mass] 26.0 pg Normal 26.0-34.0 [facility] Comment on above: Order Comment: Speci men Type: BLOOD SPECIMEN Ordering Facility: [facility] Address: [address] [place] [address] Performed By: #### 5 8410-2 #### [facility] CLIA [id number] [address] [place] [address] [place] MCHC (RBC) [Mass/Vol] 31.1 g/dL Normal 30.5-36.0 [facility] Comment on above: Order Comment: Speci men Type: BLOOD SPECIMEN Ordering Facility: [facility] Address: [address] [place] [address] Performed By: #### 5 8410-2 #### [facility] CLIA [id number] [address] [place] [address] [place] MCV (RBC) [Entitic vol] 83.7 fL Normal 80.0-100.0 [facility] Comment on above: Order Comment: Speci men Type: BLOOD SPECIMEN Ordering Facility: [facility] Address: [address] [place] [address] Performed By: #### 5 8410-2 #### [facility] CLIA [id number] [address] [place] [address] [place] Nucleated RBC (Bld) [#/Vol] 10*3/uL Normal <0.01 [facility] Comment on above: Order Comment: Speci men Type: BLOOD SPECIMEN Ordering Facility: [facility] Address: [address] [place] [address] Performed By: #### 5 8410-2 #### [facility] CLIA [id number] [address] [place] [address] [place] Platelet mean volume (Bld) [Entitic vol] 9.3 fL Normal 9.0-12.7 [facility] Comment on above: Order Comment: Speci men Type: BLOOD SPECIMEN Ordering Facility: [facility] Address: [address] [place] [address] Performed By: #### 5 8410-2 #### [facility] CLIA [id number] [address] [place] [address] [place] Platelets (Bld) [#/Vol] 386 10*3/uL Normal 150-400 [facility] Comment on above: Order Comment: Speci men Type: BLOOD SPECIMEN Ordering Facility: [facility] Address: [address] [place] [address] Performed By: #### 5 8410-2 #### [facility] CLIA [id number] [address] [place] [address] [place] RBC (Bld) [#/Vol] 4.04 10*6/uL Normal 3.90-5.20 [facility] Comment on above: Order Comment: Speci men Type: BLOOD SPECIMEN Ordering Facility: [facility] Address: [address] [place] [address] Performed By: #### 5 8410-2 #### [facility] CLIA [id number] [address] [place] [address] [place] WBC (Bld) [#/Vol] 10.81 10*3/uL Normal 3.70-11.00 [facility] Comment on above: Order Comment: Speci men Type: BLOOD SPECIMEN Ordering Facility: [facility] Address: [address] [place] [address] Performed By: #### 5 8410-2 #### [facility] CLIA [id number] [address] [place] [address] [place] CNDSon 07-18-2024 CNDS HNO ID: [id number] Author: BRIANA PRITCHARD MD Service: General Internal [...] 07/23/2024 10:45 AM Savana Lopez MD OPHTMN Mn I Bldg REASON FOR HOSPITALIZATION/PRINCIP AL DIAGNOSES: Acute [...] No resolved hospital problems. 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 Normal [facility] Renal function 2000 panelon 07-18-2024 Albumin [Mass/Vol] 3.2 g/dL Low 3.9-4.9 [facility] Comment on above: Order Comment: Speci men Type: BLOOD SPECIMEN Ordering Facility: [facility] Address: [address] [place] [address] Performed By: #### 2 4362-6 #### [facility] CLIA [id number] [address] [place] [address] [place] [address] [place] Anion gap [Moles/Vol] 11 mmol/L Normal 8-15 [facility] Comment on above: Order Comment: Speci men Type: BLOOD SPECIMEN Ordering Facility: [facility] Address: [address] [place], [place] [address] Performed By: #### 2 4362-6 #### [facility] CLIA [id number] [address] [place], [place] [address] [place] Calcium [Mass/Vol] 9.3 mg/dL Normal 8.5-10.2 [facility] Comment on above: Order Comment: Speci men Type: BLOOD SPECIMEN Ordering Facility: [facility] Address: [address] [place] [address] Performed By: #### 2 4362-6 #### [facility] CLIA [id number] [address] [place] [address] [place] Chloride [Moles/Vol] 102 mmol/L Normal 98-107 [facility] Comment on above: Order Comment: Speci men Type: BLOOD SPECIMEN Ordering Facility: [facility] Address: [address] [place], [place] [address] Performed By: #### 2 4362-6 #### [facility] CLIA [id number] [address] [place] [address] [place] CO2 [Moles/Vol] 25 mmol/L Normal 22-30 [facility] Comment on above: Order Comment: Speci men Type: BLOOD SPECIMEN Ordering Facility: [facility] Address: [address] [place], [place] [address] Performed By: #### 2 4362-6 #### [facility] CLIA [id number] [address] [place] [address] [place] Creatinine [Mass/Vol] 0.90 mg/dL Normal 0.58-0.96 [facility] Comment on above: Order Comment: Speci men Type: BLOOD SPECIMEN Ordering Facility: [facility] Address: [address] [place], [place] [address] Performed By: #### 2 4362-6 #### [facility] CLIA [id number] [address] [place] [address] [place] Creatinine and Glomerular filtration rate.predicted panel (S/P/Bld) 63 mL/min/1.73m??? Normal >=60 [facility] Comment on above: Order Comment: Rhina mason Type: BLOOD SPECIMEN Ordering Facility: [facility] Address: [address] [place] [address] Result Comment: Isa mated Glomerular Filtration Rate [...] GFR. Performed By: #### 2 4362-6 #### [facility] CLIA [id number] [address] [place] [address] [place] Glucose [Mass/Vol] 105 mg/dL High 74-99 [facility] Comment on above: Order Comment: Rhina mason Type: BLOOD SPECIMEN Ordering Facility: [facility] Address: [address] [place] [address] Result Comment: The [place] [employer] (ADA) provides guidance for cutoff [...] Standards of Medical Care in Diabetes 2016, [place] [employer]. Diabetes Care. 2016.39(Suppl 1). Performed By: #### 2 4362-6 #### [facility] CLIA [id number] [address] [place] [address] [place] Phosphate [Mass/Vol] 3.0 mg/dL Normal 2.7-4.8 [facility] Comment on above: Order Comment: Speci men Type: BLOOD SPECIMEN Ordering Facility: [facility] Address: [address] [place] [address] Performed By: #### 2 4362-6 #### [facility] CLIA [id number] [address] [place] [address] [place] Potassium [Moles/Vol] 4.5 mmol/L Normal 3.7-5.1 [facility] Comment on above: Order Comment: Speci men Type: BLOOD SPECIMEN Ordering Facility: [facility] Address: [address] [place] [address] Performed By: #### 2 4362-6 #### [facility] CLIA [id number] [address] [place] [address] [place] Sodium [Moles/Vol] 138 mmol/L Normal 136-144 [facility] Comment on above: Order Comment: Speci men Type: BLOOD SPECIMEN Ordering Facility: [facility] Address: [address] [place] [address] Performed By: #### 2 4362-6 #### [facility] CLIA [id number] [address] [place] [address] [place] Urea nitrogen [Mass/Vol] 17 mg/dL Normal 7-21 [facility] Comment on above: Order Comment: Speci men Type: BLOOD SPECIMEN Ordering Facility: [facility] Address: [address] [place] [address] Performed By: #### 2 4362-6 #### [facility] CLIA [id number] [address] [place] [address] [place] CASE MANAGEMon 07-17-2024 CASE MANAGEM HNO ID: [id number] Author: ?, ?, ? Service: ? Author Type: ? Type: Care Mgt Progress Note Filed: 07/17/2024 14:07 Note Text: CARE MANAGEMENT PROGRESS NOTE SERVICE DATE: 07/17/2024 SERVICE TIME: 2:07 PM LOS: 10 days Discharge packet completed and dropped off by personal injury legal assistant Tamiko Holley. Packet is missing AVS/DC forms, please reach out to field nurse case manager with any discharge related questions. SIGNATURE: Tamiko Holley PATIENT NAME: Mel Castillo DATE: July 17, 2024 TIME: 2:[address] [facility] CASE MANAGEM HNO ID: [id number] Author: DOMINIQUE RAMSAY LSW Service: ? Author Type: Prosthetic Dentist Type: Care Mgt Progress Note Filed: 07/17/2024 13:44 Note Text: CARE MANAGEMENT HOLIDAY PLANNING NOTE DISCHARGE OR POSSIBLE DISCHARGE Date/Time: 07/18 at 11am Disposition: Shelter Facility - Precert Obtained: Yes Facility Name: [facility] Facility Phone #: Transport: Mode of Transportation: Ambulance Transportation Agency and Phone #: [facility] [phone] . Date of Trip: 07/18/2024 at 11am Other Concerns: 11 am DC via [facility] trip# #[id number] to take Pt to [facility] SNF. Pre-cert is approved, a bed is available, and Pt is medically ready. 7000 has been tasked. DC packet has been tasked. DNR form is on green chart. 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 SIGNATURE: SHAQUILLE Garay PATIENT NAME: Mel Castillo DATE: July 17, 2024 TIME: 1:42 PM PAGER/CONTACT #: [facility] CASE MANAGEM HNO ID: [id number] Author: BASILIA CAPPS, ? Service: ? Author Type: ? Type: Care Mgt Progress Note Filed: 07/17/2024 13:14 Note Text: [facility] PRECERT NOTE [facility] MEDICARE O approved Shelter Facility for [facility] . Precert approved through 07/19/2024. For any additional questions regarding approvals, transport or care management needs, please contact the CM assigned to this patient in the Treatment Team. SIGNATURE: Basilia Capps DATE: July 17, 2024 TIME: 1:[address] [facility] CASE MANAGEM HNO ID: [id number] Author: DOMINIQUE RAMSAY LSW Service: General Internal Medicine Author Type: Prosthetic Dentist Type: Care Mgt Progress Note Filed: 07/17/2024 11:29 Note Text: Attestation signed by Thomas Car DO at 07/17/2024 11:37 AM Thomas Car D.O. PGY-2 Internal Medicine Resident [facility] Click here to page July 17, [...] problems. * Attending Physician: Briana Pritchard MD [facility] CBC panel Auto (Bld)on 07-17 Erythrocyte distribution width (RBC) [Ratio] 17.2 % High 11.5-15.0 [facility] Comment on above: Order Comment: Speci men Type: BLOOD SPECIMEN Ordering Facility: [facility] Address: [address] [place] [address] Performed By: #### 2 276-4 #### [facility] CLIA [id number] [address] [place] [address] [place] Hematocrit (Bld) [Volume fraction] 32.3 % Low 36.0-46.0 [facility] Comment on above: Order Comment: Speci men Type: BLOOD SPECIMEN Ordering Facility: [facility] Address: [address] [place] [address] Performed By: #### 2 276-4 #### [facility] CLIA [id number] [address] [place] [address] [place] Hemoglobin (Bld) [Mass/Vol] 10.2 g/dL Low 11.5-15.5 [facility] Comment on above: Order Comment: Speci men Type: BLOOD SPECIMEN Ordering Facility: [facility] Address: [address] [place] [address] Performed By: #### 2 276-4 #### [facility] CLIA [id number] [address] [place] [address] [place] MCH (RBC) [Entitic mass] 26.5 pg Normal 26.0-34.0 [facility] Comment on above: Order Comment: Speci men Type: BLOOD SPECIMEN Ordering Facility: [facility] Address: [address] [place] [address] Performed By: #### 2 276-4 #### [facility] CLIA [id number] [address] [place] [address] [place] MCHC (RBC) [Mass/Vol] 31.6 g/dL Normal 30.5-36.0 [facility] Comment on above: Order Comment: Speci men Type: BLOOD SPECIMEN Ordering Facility: [facility] Address: [address] [place] [address] Performed By: #### 2 276-4 #### [facility] CLIA [id number] [address] [place] [address] [place] MCV (RBC) [Entitic vol] 83.9 fL Normal 80.0-100.0 [facility] Comment on above: Order Comment: Speci men Type: BLOOD SPECIMEN Ordering Facility: [facility] Address: [address] [place] [address] Performed By: #### 2 276-4 #### [facility] CLIA [id number] [address] [place] [address] [place] Nucleated RBC (Bld) [#/Vol] 10*3/uL Normal <0.01 [facility] Comment on above: Order Comment: Speci men Type: BLOOD SPECIMEN Ordering Facility: [facility] Address: [address] [place] [address] Performed By: #### 2 276-4 #### [facility] CLIA [id number] [address] [place] [address] [place] Platelet mean volume (Bld) [Entitic vol] 9.7 fL Normal 9.0-12.7 [facility] Comment on above: Order Comment: Speci men Type: BLOOD SPECIMEN Ordering Facility: [facility] Address: [address] [place] [address] Performed By: #### 2 276-4 #### [facility] CLIA [id number] [address] [place] [address] [place] Platelets (Bld) [#/Vol] 362 10*3/uL Normal 150-400 [facility] Comment on above: Order Comment: Speci men Type: BLOOD SPECIMEN Ordering Facility: [facility] Address: [address] [place] [address] Performed By: #### 2 276-4 #### [facility] CLIA [id number] [address] [place] [address] [place] RBC (Bld) [#/Vol] 3.85 10*6/uL Low 3.90-5.20 [facility] Comment on above: Order Comment: Speci men Type: BLOOD SPECIMEN Ordering Facility: [facility] Address: [address] [place] [address] Performed By: #### 2 276-4 #### [facility] CLIA [id number] [address] [place] [address] [place] WBC (Bld) [#/Vol] 9.41 10*3/uL Normal 3.70-11.00 [facility] Comment on above: Order Comment: Speci men Type: BLOOD SPECIMEN Ordering Facility: [facility] Address: [address] [place] [address] Performed By: #### 2 276-4 #### [facility] CLIA [id number] [address] [place] [address] [place] Renal function 2000 panelon 07-17-2024 Albumin [Mass/Vol] 3.3 g/dL Low 3.9-4.9 [facility] Comment on above: Order Comment: Speci men Type: BLOOD SPECIMENOrdering Facility: [facility] Address: [address] [place] [address] Performed By: #### 2 4362-6 ####[facility] [id number] [place] [address] [place] Anion gap [Moles/Vol] 10 mmol/L Normal 8-15 [facility] Comment on above: Order Comment: Speci men Type: BLOOD SPECIMENOrdering Facility: [facility] Address: [address] [place] [address] Performed By: #### 2 4362-6 ####[facility] [id number] [place] [address] [place] Calcium [Mass/Vol] 9.0 mg/dL Normal 8.5-10.2 [facility] Comment on above: Order Comment: Speci men Type: BLOOD SPECIMENOrdering Facility: [facility] Address: [address] [place] [address] Performed By: #### 2 4362-6 ####[facility] [id number] [place] [address] [place] Chloride [Moles/Vol] 101 mmol/L Normal 98-107 [facility] Comment on above: Order Comment: Speci men Type: BLOOD SPECIMENOrdering Facility: [facility] Address: [address] [place] [address] Performed By: #### 2 4362-6 ####[facility] [id number] [place] [address] [place] CO2 [Moles/Vol] 25 mmol/L Normal 22-30 [facility] Comment on above: Order Comment: Speci men Type: BLOOD SPECIMENOrdering Facility: [facility] Address: [address] [place] [address] Performed By: #### 2 4362-6 ####[facility] [id number] [place] [address] [place] Creatinine [Mass/Vol] 0.94 mg/dL Normal 0.58-0.96 [facility] Comment on above: Order Comment: Speci men Type: BLOOD SPECIMENOrdering Facility: [facility] Address: [address] [place] [address] Performed By: #### 2 4362-6 ####[facility] [id number] [place] [address] [place] Creatinine and Glomerular filtration rate.predicted panel (S/P/Bld) 60 mL/min/1.73m??? Normal >=60 [facility] Comment on above: Order Comment: Speci men Type: BLOOD SPECIMENOrdering Facility: [facility] Address: [address] [place] [address] Result Comment: Isa mated Glomerular Filtration Rate [...] actual GFR. Performed By: #### 2 4362-6 ####[facility] [id number] [address] [address] [place] Glucose [Mass/Vol] 112 mg/dL High 74-99 [facility] Comment on above: Order Comment: Speci isabella Type: BLOOD SPECIMENOrdering Facility: [facility] Address: [address] [place] [address] Result Comment: The [place] Diabetes [employer] (ADA) provides guidance for cutoff [...] Standards of Medical Care in Diabetes 2016, [place] [employer]. Diabetes Care. 2016.39(Suppl 1). Performed By: #### 2 4362-6 ####[facility] [id number] [place] [id number] [place] Phosphate [Mass/Vol] 2.2 mg/dL Low 2.7-4.8 [facility] Comment on above: Order Comment: Rhina mason Type: BLOOD SPECIMENOrdering Facility: [facility] Address: [address] [place] [address] Performed By: #### 2 4362-6 ####[facility] [id number] [address] [address] [place] Potassium [Moles/Vol] 4.6 mmol/L Normal 3.7-5.1 [facility] Comment on above: Order Comment: Speci men Type: BLOOD SPECIMENOrdering Facility: [facility] Address: [address] [place] [address] Performed By: #### 2 4362-6 ####[facility] [id number] [address] [place] Sodium [Moles/Vol] 136 mmol/L Normal 136-144 [facility] Comment on above: Order Comment: Speci men Type: BLOOD SPECIMENOrdering Facility: [facility] Address: [address] [place] [address] Performed By: #### 2 4362-6 ####[facility] [id number] [address] [place] Urea nitrogen [Mass/Vol] 20 mg/dL Normal 7-21 [facility] Comment on above: Order Comment: Speci men Type: BLOOD SPECIMENOrdering Facility: [facility] Address: [address] [place] [address] Performed By: #### 2 4362-6 ####[facility] [id number] [address] [place] THERAPY NTon 07-17-2024 THERAPY NT HNO ID: [id number] Author: SANTIAGO GUZMAN OT/[place] Service: Occupational Therapy Author Type: Occupational Therapist Type: Therapy (PT/OT/Speech/Resp) Filed: 07/17/2024 15:14 Note Text: Occupational Therapy Treatment Summary SERVICE DATE: 07/17/2024 SERVICE TIME: 1425 to 1504 ROOM: [place] [address] OT 6 Clicks Score: 15 DISCHARGE RECOMMENDATIONS [...] (ADL), Muscle Weakness (generalized) TREATMENT INTERVENTIONS Self Longterm Management (99064) Timed Code Treatment (minutes): 39 Skilled Treatment [...] Sit to Stand, Standing Balance to Improve [place] with ADLs/Self-Care, Sitting Balance to Improve [place] with ADLs/Self-Care, Life Roles/Routines/Habits THERAPEUTIC SKILLS USED [...] to Radha (more content not included)... Normal [facility] THERAPY NT HNO ID: [id number] Author: GABRIELLA DALEY PT Service: Physical Therapy Author Type: Physical Therapist Type: Therapy (PT/OT/Speech/Resp) Filed: 07/17/2024 09:31 Note Text: Physical Therapy Evaluation Summary SERVICE DATE: 07/17/2024 SERVICE TIME: 832 [facility] 6 Clicks Score: 18 DISCHARGE RECOMMENDATIONS [...] DIAGNOSIS Reduced mobility-other TREATMENT INTERVENTIONS $ Evaluation-Moderate (16387) Billed Units: 1 unit Therapeutic Activity (63652) Treatment Minutes: 10 $ Therapeutic Activity (80494) Billed Units: 1 unit Gait Training (57733) Treatment Minutes: 14 $ Gait Training (20767) Billed Units: 1 unit Evaluation, Therapeutic Activity (17836), Gait Training (81884) Timed Code Treatment (minutes): 24 Skilled Treatment [...] Conservation Training, (more content not included)... Normal [facility] BSCAN OD (RIGHT EYE)on 07-[address] [facility] Radiology Study observation (narrative) [facility] CBC panel Auto (Bld)on 07-16 Erythrocyte distribution width (RBC) [Ratio] 17.8 % High 11.5-15.0 [facility] Comment on above: Order Comment: Speci men Type: BLOOD SPECIMEN Ordering Facility: [facility] Address: [address] [place] [address] Performed By: #### 5 8410-2 #### [facility] CLIA [id number] [address] [place] [address] [place] Hematocrit (Bld) [Volume fraction] 33.2 % Low 36.0-46.0 [facility] Comment on above: Order Comment: Speci men Type: BLOOD SPECIMEN Ordering Facility: [facility] Address: [address] [place] [address] Performed By: #### 5 8410-2 #### [facility] CLIA [id number] [address] [place] [address] [place] Hemoglobin (Bld) [Mass/Vol] 10.3 g/dL Low 11.5-15.5 [facility] Comment on above: Order Comment: Speci men Type: BLOOD SPECIMEN Ordering Facility: [facility] Address: [address] [place] [address] Performed By: #### 5 8410-2 #### [facility] CLIA [id number] [address] [place] [address] [place] MCH (RBC) [Entitic mass] 25.6 pg Low 26.0-34.0 [facility] Comment on above: Order Comment: Speci men Type: BLOOD SPECIMEN Ordering [facility] Address: [address] [place] [address] Performed By: #### 5 8410-2 #### [facility] CLIA [id number] [address] [place] [address] [place] MCHC (RBC) [Mass/Vol] 31.0 g/dL Normal 30.5-36.0 [facility] Comment on above: Order Comment: Speci men Type: BLOOD SPECIMEN Ordering [facility]: [facility] Address: [address] [place] [address] Performed By: #### 5 8410-2 #### [facility] CLIA [id number] [address] [place] [address] [place] MCV (RBC) [Entitic vol] 82.4 fL Normal 80.0-100.0 [facility] Comment on above: Order Comment: Speci men Type: BLOOD SPECIMEN Ordering Facility: [facility] Address: [address] [place] [address] Performed By: #### 5 8410-2 #### [facility] CLIA [id number] [address] [place] [address] [place] Nucleated RBC (Bld) [#/Vol] 10*3/uL Normal <0.01 [facility] Comment on above: Order Comment: Speci men Type: BLOOD SPECIMEN Ordering Facility: [facility] Address: [address] [place] [address] Performed By: #### 5 8410-2 #### [facility] CLIA [id number] [address] [place] [address] [place] Platelet mean volume (Bld) [Entitic vol] 9.8 fL Normal 9.0-12.7 [facility] Comment on above: Order Comment: Speci men Type: BLOOD SPECIMEN Ordering Facility: [facility] Address: [address] [place] [address] Performed By: #### 5 8410-2 #### [facility] CLIA [id number] [address] [place] [address] [place] Platelets (Bld) [#/Vol] 348 10*3/uL Normal 150-400 [facility] Comment on above: Order Comment: Speci men Type: BLOOD SPECIMEN Ordering Facility: [facility] Address: [address] [place] [address] Performed By: #### 5 8410-2 #### [facility] CLIA [id number] [address] [place] [address] [place] RBC (Bld) [#/Vol] 4.03 10*6/uL Normal 3.90-5.20 [facility] Comment on above: Order Comment: Speci men Type: BLOOD SPECIMEN [facility] [facility] Address: [address] [place] [address] Performed By: #### 5 8410-2 #### [facility] CLIA [id number] [address] [place] [address] [place] WBC (Bld) [#/Vol] 11.15 10*3/uL High 3.70-11.00 [facility] Comment on above: Order Comment: Speci men Type: BLOOD SPECIMEN [facility] Address: [address] [place] [address] Performed By: #### 5 8410-2 #### [facility] CLIA [id number] [address] [place] [address] [place] FUNDUS PHOTOS OU (BOTH EYES) on 07-16-[address] [facility] Radiology Study observation (narrative) [facility] Renal function 2000 panelon 07-16-2024 Albumin [Mass/Vol] 3.1 g/dL Low 3.9-4.9 [facility] Comment on above: Order Comment: Speci men Type: BLOOD SPECIMENOrdering Facility: [facility] Address: [address] [place] [address] Performed By: #### 2 4362-6 ####[facility] [id number] [place] [address] [place] Anion gap [Moles/Vol] 12 mmol/L Normal 8-15 [facility] Comment on above: Order Comment: Speci men Type: BLOOD SPECIMENOrdering Facility: [facility] Address: [address] [place] [address] Performed By: #### 2 4362-6 ####[facility] [id number] [place] [address] [place] Calcium [Mass/Vol] 9.0 mg/dL Normal 8.5-10.2 [facility] Comment on above: Order Comment: Speci men Type: BLOOD SPECIMENOrdering Facility: [facility] Address: [address] [place] [address] Performed By: #### 2 4362-6 ####[facility] [id number] [place] [address] [place] Chloride [Moles/Vol] 103 mmol/L Normal 98-107 [facility] Comment on above: Order Comment: Speci men Type: BLOOD SPECIMENOrdering Facility: [facility] Address: [address] [place] [address] Performed By: #### 2 4362-6 ####[facility] [id number] [place] [address] [place] CO2 [Moles/Vol] 23 mmol/L Normal 22-30 [facility] Comment on above: Order Comment: Speci men Type: BLOOD SPECIMENOrdering Facility: [facility] Address: [address] [place] [address] Performed By: #### 2 4362-6 ####[facility] [id number] [place] [address] [place] Creatinine [Mass/Vol] 1.09 mg/dL High 0.58-0.96 [facility] Comment on above: Order Comment: Speci men Type: BLOOD SPECIMENOrdering Facility: [facility] Address: [address] [place] [address] Performed By: #### 2 4362-6 ####[facility] [id number] [place] [address] [place] Creatinine and Glomerular filtration rate.predicted panel (S/P/Bld) 50 mL/min/1.73m??? Low >=60 [facility] Comment on above: Order Comment: Speci men Type: BLOOD SPECIMENOrdering Facility: [facility] Address: [address] [place] [address] Result Comment: Isa mated Glomerular Filtration Rate [...] actual GFR. Performed By: #### 2 4362-6 ####[facility] [id number] [place] [address] [place] Glucose [Mass/Vol] 103 mg/dL High 74-99 [facility] Comment on above: Order Comment: Speci men Type: BLOOD SPECIMENOrdering Facility: [facility] Address: [address] [place] [address] Result Comment: The [place] [employer] (ADA) provides guidance for cutoff [...] Standards of Medical Care in Diabetes 2016, [place] [employer]. Diabetes Care. 2016.39(Suppl 1). Performed By: #### 2 4362-6 ####[facility] [id number] [place] [address] [place] Phosphate [Mass/Vol] 2.9 mg/dL Normal 2.7-4.8 [facility] Comment on above: Order Comment: Samiri men Type: BLOOD SPECIMENOrdering Facility: [facility] Address: [address] [place] [address] Performed By: #### 2 4362-6 ####[facility] [id number] [place] [address] [place] Potassium [Moles/Vol] 4.5 mmol/L Normal 3.7-5.1 [facility] Comment on above: Order Comment: Speci men Type: BLOOD SPECIMENOrdering Facility: [facility] Address: [address] [place] [address] Performed By: #### 2 4362-6 ####[facility] [id number] [place] [address] [place] Sodium [Moles/Vol] 138 mmol/L Normal 136-144 [facility] Comment on above: Order Comment: Speci men Type: BLOOD SPECIMENOrdering Facility: [facility] Address: [address] [place] [address] Performed By: #### 2 4362-6 ####[facility] [id number] [address] [facility] Urea nitrogen [Mass/Vol] 22 mg/dL High 7-21 [facility] Comment on above: Order Comment: Speci men Type: BLOOD SPECIMENOrdering Facility: [facility] Address: [address] [place] [address] Performed By: #### 2 4362-6 ####[facility] [id number] [address] [facility] THERAPY NTon 07-16-2024 THERAPY NT HNO ID: [id number] Author: SANTIAGO GUZMAN OT/L Service: Occupational Therapy Author Type: Occupational Therapist Type: Therapy (PT/OT/Speech/Resp) Filed: 07/16/2024 15:10 Note Text: Occupational Therapy Treatment Summary SERVICE DATE: 07/16/2024 SERVICE TIME: 1415 to 1500 ROOM: [place] [address] OT 6 Clicks Score: 15 DISCHARGE RECOMMENDATIONS [...] (ADL), Muscle Weakness (generalized) TREATMENT INTERVENTIONS Self Longterm Management (66217) Timed Code Treatment (minutes): 45 Skilled Treatment [...] Sit to Stand, Standing Balance to Improve [place] with ADLs/Self-Care, Sitting Balance to Improve [place] with ADLs/Self-Care, Life Roles/Routines/Habits THERAPEUTIC SKILLS USED [...] Assistance Sit (more content not included)... Normal [facility] CBC panel Auto (Bld)on 07-15 Erythrocyte distribution width (RBC) [Ratio] 17.8 % High 11.5-15.0 [facility] Comment on above: Order Comment: Speci men Type: BLOOD SPECIMEN [facility] Address: [address] [place] [address] Performed By: #### 2 4362-6 #### [facility] CLIA [id number] [address] [place] [address] [place] Hematocrit (Bld) [Volume fraction] 34.4 % Low 36.0-46.0 [facility] Comment on above: Order Comment: Speci men Type: BLOOD SPECIMEN [facility] Address: [address] [place] [address] Performed By: #### 2 4362-6 #### [facility] CLIA [id number] [address] [place] [address] [place] Hemoglobin (Bld) [Mass/Vol] 10.7 g/dL Low 11.5-15.5 [facility] Comment on above: Order Comment: Speci men Type: BLOOD SPECIMEN [facility] Address: [address] [place] [address] Performed By: #### 2 4362-6 #### [facility] CLIA [id number] [address] [place] [address] [place] MCH (RBC) [Entitic mass] 26.2 pg Normal 26.0-34.0 [facility] Comment on above: Order Comment: Speci men Type: BLOOD SPECIMEN [facility] Address: [address] [place] [address] Performed By: #### 2 4362-6 #### [facility] CLIA [id number] [address] [place] [address] [place] MCHC (RBC) [Mass/Vol] 31.1 g/dL Normal 30.5-36.0 [facility] Comment on above: Order Comment: Speci men Type: BLOOD SPECIMEN [facility] Address: [address] [place] [address] Performed By: #### 2 4362-6 #### [facility] CLIA [id number] [address] [place] [address] [place] MCV (RBC) [Entitic vol] 84.1 fL Normal 80.0-100.0 [facility] Comment on above: Order Comment: Speci men Type: BLOOD SPECIMEN [facility] Address: [address] [place] [address] Performed By: #### 2 4362-6 #### [facility] CLIA [id number] [address] [place] [address] [place] Nucleated RBC (Bld) [#/Vol] 10*3/uL Normal <0.01 [facility] Comment on above: Order Comment: Speci men Type: BLOOD SPECIMEN [facility] Address: [address] [place] [address] Performed By: #### 2 4362-6 #### [facility] CLIA [id number] [address] [place], [place] [address] [place] Platelet mean volume (Bld) [Entitic vol] 10.1 fL Normal 9.0-12.7 [facility] Comment on above: Order Comment: Speci men Type: BLOOD SPECIMEN [facility] Address: [address] [place] [address] Performed By: #### 2 4362-6 #### [facility] CLIA [id number] [address] [place] [address] [place] Platelets (Bld) [#/Vol] 386 10*3/uL Normal 150-400 [facility] Comment on above: Order Comment: Speci men Type: BLOOD SPECIMEN [facility] Address: [address] [place] [address] Performed By: #### 2 4362-6 #### [facility] CLIA [id number] [address] [place] [address] [place] RBC (Bld) [#/Vol] 4.09 10*6/uL Normal 3.90-5.20 [facility] Comment on above: Order Comment: Speci men Type: BLOOD SPECIMEN [facility] Address: [address] [place] [address] Performed By: #### 2 4362-6 #### [facility] CLIA [id number] [address] [place] [address] [place] WBC (Bld) [#/Vol] 10.20 10*3/uL Normal 3.70-11.00 [facility] Comment on above: Order Comment: Speci men Type: BLOOD SPECIMEN [facility] Address: [address] [place] [address] Performed By: #### 2 4362-6 #### [facility] CLIA [id number] [address] [place] [address] [place] Renal function 2000 panelon 07-15-2024 Albumin [Mass/Vol] 3.5 g/dL Low 3.9-4.9 [facility] Comment on above: Order Comment: Speci men Type: BLOOD SPECIMENOrdering Facility: [facility] Address: [address] [place], [place] [address] Performed By: #### 2 4362-6 ####[facility] [id number] [place] [id number] [place] Anion gap [Moles/Vol] 12 mmol/L Normal 8-15 [facility] Comment on above: Order Comment: Speci men Type: BLOOD SPECIMENOrdering Facility: [facility] Address: [address] [place] [address] Performed By: #### 2 4362-6 ####[facility] [id number] [place] [address] [place] Calcium [Mass/Vol] 9.1 mg/dL Normal 8.5-10.2 [facility] Comment on above: Order Comment: Speci men Type: BLOOD SPECIMENOrdering Facility: [facility] Address: [address] [place], [place] [address] Performed By: #### 2 4362-6 ####[facility] [id number] [place] [address] [place] Chloride [Moles/Vol] 101 mmol/L Normal 98-107 [facility] Comment on above: Order Comment: Speci men Type: BLOOD SPECIMENOrdering Facility: [facility] Address: [address] [place] [address] Performed By: #### 2 4362-6 ####[facility] [id number] [place] [address] [place] CO2 [Moles/Vol] 24 mmol/L Normal 22-30 [facility] Comment on above: Order Comment: Speci men Type: BLOOD SPECIMENOrdering Facility: [facility] Address: [address] [place], [place] [address] Performed By: #### 2 4362-6 ####[facility] [id number] [address] [address] [place] Creatinine [Mass/Vol] 0.96 mg/dL Normal 0.58-0.96 [facility] Comment on above: Order Comment: Rhina mason Type: BLOOD SPECIMENOrdering Facility: [facility] Address: [address] [place] [address] Performed By: #### 2 4362-6 ####[facility] [id number] [place] [address] [place] Creatinine and Glomerular filtration rate.predicted panel (S/P/Bld) 58 mL/min/1.73m??? Low >=60 [facility] Comment on above: Order Comment: Rhina mason Type: BLOOD SPECIMENOrdering Facility: [facility] Address: [address] [place] [address] Result Comment: Isa mated Glomerular Filtration Rate [...] actual GFR. Performed By: #### 2 4362-6 ####[facility] [id number] [place] [address] [place] Glucose [Mass/Vol] 93 mg/dL Normal 74-99 [facility] Comment on above: Order Comment: Rhina mason Type: BLOOD SPECIMENOrdering Facility: [facility] Address: [address] [place] [address] Result Comment: The [place] [employer] (ADA) provides guidance for cutoff [...] Standards of Medical Care in Diabetes 2016, [place] [employer]. Diabetes Care. 2016.39(Suppl 1). Performed By: #### 2 4362-6 ####[facility] [id number] [place] [address] [place] Phosphate [Mass/Vol] 3.1 mg/dL Normal 2.7-4.8 [facility] Comment on above: Order Comment: Speci men Type: BLOOD SPECIMENOrdering Facility: [facility] Address: [address] [place] [address] Performed By: #### 2 4362-6 ####[facility] [id number] [place] [address] [place] Potassium [Moles/Vol] 4.3 mmol/L Normal 3.7-5.1 [facility] Comment on above: Order Comment: Speci men Type: BLOOD SPECIMENOrdering Facility: [facility] Address: [address] [place] [address] Performed By: #### 2 4362-6 ####[facility] [id number] [place] [address] [place] Sodium [Moles/Vol] 137 mmol/L Normal 136-144 [facility] Comment on above: Order Comment: Speci men Type: BLOOD SPECIMENOrdering Facility: [facility] Address: [address] [place] [address] Performed By: #### 2 4362-6 ####[facility]IA [id number] [place] [address] [place] Urea nitrogen [Mass/Vol] 19 mg/dL Normal 7-21 [facility] Comment on above: Order Comment: Speci men Type: BLOOD SPECIMENOrdering Facility: [facility] Address: [address] [place] [address] Performed By: #### 2 4362-6 ####[facility] [id number] [place] [address] [place] CBC panel Auto (Bld)on 07-14 Erythrocyte distribution width (RBC) [Ratio] 17.9 % High 11.5-15.0 [facility] Comment on above: Order Comment: Speci men Type: BLOOD SPECIMEN [facility] Address: [address] [place] [address] Performed By: #### 2 4362-6 #### [facility] CLIA [id number] [address] [place] [address] [place] Hematocrit (Bld) [Volume fraction] 33.8 % Low 36.0-46.0 [facility] Comment on above: Order Comment: Speci men Type: BLOOD SPECIMEN [facility] Address: [address] [place] [address] Performed By: #### 2 4362-6 #### [facility] CLIA [id number] [address] [place] [address] [place] Hemoglobin (Bld) [Mass/Vol] 10.7 g/dL Low 11.5-15.5 [facility] Comment on above: Order Comment: Speci men Type: BLOOD SPECIMEN [facility] Address: [address] [place] [address] Performed By: #### 2 4362-6 #### [facility] CLIA [id number] [address] [place] [address] [place] MCH (RBC) [Entitic mass] 26.4 pg Normal 26.0-34.0 [facility] Comment on above: Order Comment: Speci men Type: BLOOD SPECIMEN [facility] Address: [address] [place] [address] Performed By: #### 2 4362-6 #### [facility] CLIA [id number] [address] [place] [address] [place] MCHC (RBC) [Mass/Vol] 31.7 g/dL Normal 30.5-36.0 [facility] Comment on above: Order Comment: Speci men Type: BLOOD SPECIMEN [facility] Address: [address] [place] [address] Performed By: #### 2 4362-6 #### [facility] CLIA [id number] [address] [place] [address] [place] MCV (RBC) [Entitic vol] 83.5 fL Normal 80.0-100.[address] [facility] Comment on above: Order Comment: Speci men Type: BLOOD SPECIMEN [facility] Address: [address] [place] [address] Performed By: #### 2 4362-6 #### [facility] CLIA [id number] [address] [place] [address] [place] Nucleated RBC (Bld) [#/Vol] 10*3/uL Normal <0.01 [facility] Comment on above: Order Comment: Speci men Type: BLOOD SPECIMEN [facility] Address: [address] [place] [address] Performed By: #### 2 4362-6 #### [facility] CLIA [id number] [address] [place] [address] [place] Platelet mean volume (Bld) [Entitic vol] 10.3 fL Normal 9.0-12.7 [facility] Comment on above: Order Comment: Speci men Type: BLOOD SPECIMEN [facility] Address: [address] [place] [address] Performed By: #### 2 4362-6 #### [facility] CLIA [id number] [address] [place] [address] [place] Platelets (Bld) [#/Vol] 345 10*3/uL Normal 150-400 [facility] Comment on above: Order Comment: Speci men Type: BLOOD SPECIMEN [facility] Address: [address] [place] [address] Performed By: #### 2 4362-6 #### [facility] CLIA [id number] [address] [place] [address] [place] RBC (Bld) [#/Vol] 4.05 10*6/uL Normal 3.90-5.20 [facility] Comment on above: Order Comment: Speci men Type: BLOOD SPECIMEN [facility] Address: [address] [place] [address] Performed By: #### 2 4362-6 #### [facility] CLIA [id number] [address] [place] [address] [place] WBC (Bld) [#/Vol] 11.07 10*3/uL High 3.70-11.00 [facility] Comment on above: Order Comment: Speci men Type: BLOOD SPECIMEN [facility] Address: [address] [place] [address] Performed By: #### 2 4362-6 #### [facility] CLIA [id number] [address] [place] [address] [place] Renal function 2000 panelon 07-14-2024 Albumin [Mass/Vol] 3.5 g/dL Low 3.9-4.9 [facility] Comment on above: Order Comment: Speci men Type: BLOOD SPECIMEN [facility] Address: [address] [place] [address] Performed By: #### 2 4362-6 #### [facility] CLIA [id number] [address] [place] [address] [place] Anion gap [Moles/Vol] 14 mmol/L Normal 8-15 [facility] Comment on above: Order Comment: Speci men Type: BLOOD SPECIMEN [facility] Address: [address] [place] [id number] Performed By: #### 2 4362-6 #### [facility] CLIA [id number] [address] [place] [id number] [place] Calcium [Mass/Vol] 9.1 mg/dL Normal 8.5-10.2 [facility] Comment on above: Order Comment: Speci men Type: BLOOD SPECIMEN [facility] Address: [address] [place], [place] [address] Performed By: #### 2 4362-6 #### [facility] CLIA [id number] [address] [place] [address] [place] Chloride [Moles/Vol] 98 mmol/L Normal 98-107 [facility] Comment on above: Order Comment: Speci men Type: BLOOD SPECIMEN [facility] Address: [address] [place] [address] Performed By: #### 2 4362-6 #### [facility] CLIA [id number] [address] [place] [address] [place] CO2 [Moles/Vol] 22 mmol/L Normal 22-30 [facility] Comment on above: Order Comment: Speci men Type: BLOOD SPECIMEN [facility] Address: [address] [place], [place] [address] Performed By: #### 2 4362-6 #### [facility] CLIA [id number] [address] [place] [address] [place] Creatinine [Mass/Vol] 1.01 mg/dL High 0.58-0.96 [facility] Comment on above: Order Comment: Speci men Type: BLOOD SPECIMEN [facility] Address: [address] [place], [place] [address] Performed By: #### 2 4362-6 #### [facility] CLIA [id number] [address] [place] [address] [place] Creatinine and Glomerular filtration rate.predicted panel (S/P/Bld) 55 mL/min/1.73m??? Low >=60 [facility] Comment on above: Order Comment: Rhina mason Type: BLOOD SPECIMEN [facility] Address: [address] [place] [address] Result Comment: Isa mated Glomerular Filtration Rate [...] GFR. Performed By: #### 2 4362-6 #### [facility] CLIA [id number] [address] [place] [address] [place] Glucose [Mass/Vol] 131 mg/dL High 74-99 [facility] Comment on above: Order Comment: Rhina mason Type: BLOOD SPECIMEN [facility] Address: [address] [place] [address] Result Comment: The [place] [employer] (ADA) provides guidance for cutoff [...] Standards of Medical Care in Diabetes 2016, [place] [employer]. Diabetes Care. 2016.39(Suppl 1). Performed By: #### 2 4362-6 #### [facility] CLIA [id number] [address] [place] [address] [place] Phosphate [Mass/Vol] 3.5 mg/dL Normal 2.7-4.8 [facility] Comment on above: Order Comment: Speci men Type: BLOOD SPECIMEN [facility] Address: [address] [place] [address] Performed By: #### 2 4362-6 #### [facility] CLIA [id number] [address] [place] [address] [place] Potassium [Moles/Vol] 4.1 mmol/L Normal 3.7-5.1 [facility] Comment on above: Order Comment: Speci men Type: BLOOD SPECIMEN [facility] Address: [address] [place] [address] Performed By: #### 2 4362-6 #### [facility] CLIA [id number] [address] [place] [address] [place] Sodium [Moles/Vol] 134 mmol/L Low 136-144 [facility] Comment on above: Order Comment: Speci men Type: BLOOD SPECIMEN [facility] Address: [address] [place] [address] Performed By: #### 2 4362-6 #### [facility] CLIA [id number] [address] [place] [address] [place] Urea nitrogen [Mass/Vol] 19 mg/dL Normal 7-21 [facility] Comment on above: Order Comment: Speci men Type: BLOOD SPECIMEN [facility] Address: [address] [place] [address] Performed By: #### 2 4362-6 #### [facility] CLIA [id number] [address] [place] [address] [place] ANES POSTPROC EVALon 024 ANES POSTPROC EVAL HNO ID: [id number] Author: SIERRA FALK MD Service: ? Author Type: Anesthesiologist Type: Anesthesia Postprocedure Evaluation Filed: 07/13/2024 15:57 Note Text: POST ANESTHESIA EVALUATION NOTE : 1940 Procedure Summary Date: 07/13/24 Room / Location: [address] Anesthesia Start: 1222 Anesthesia Stop: 1337 [...] July 13, 2024 TIME: 3:57 PM CSN: [id number] Normal [facility] ANES PRE-OPon 07-13-2024 ANES PRE-OP HNO ID: [id number] Author: SIERRA FALK MD Service: ? Author Type: Anesthesiologist Type: Anesthesia Preprocedure Evaluation Filed: 07/13/2024 09:44 Note Text: ANESTHESIOLOGY DAY OF SURGERY NOTE : 1940 Procedure Information Date/Time: 07/13/24 1404 Procedure: ASPIRATION VITREOUS, CHOROIDAL FLUID, PARS PLANA APPROACH (Right: Eye) Location: [address] Surgeons: Savana Lopez MD Estimated body [...] and consent discussed: yes. Patient / Responsible Democrat agrees to proceed: yes Patient / Surrogate [...] 0.5 tablets by mouth every 12 hours. eivavccnoid-vndcdxusw-j ilanter (TRELEGY ELLIPTA) 100-62.5-25 mcg inhalation powder Inhale 1 Puff as instructed once daily. acetaminophen (TYLENOL) 325 mg tablet Take 2 tablets by mouth every 6 hours as needed for pain. ascorbic acid (more content not included)... Normal [facility] CASE MANAGEMon 07-13-2024 CASE MANAGEM HNO ID: [id number] Author: REBECA BELLE LSW Service: ? Author Type: Prosthetic Dentist Type: Care Mgt Progress Note Filed: 07/13/2024 16:25 Note Text: CARE MANAGEMENT WEEKEND PLANNING NOTE NO WEEKEND DISCHARGE Disposition: Shelter Facility Anticipated Discharge Date: TBD CM followed up with pt's daughter for SNF choices. Pt is currently in the OR- unable to send referrals in careport or complete "edit note" side bar. 1)[facility] 2)[facility] 3)[facility] 4)[facility] 5)[facility] Will need accepting SNF and precert prior to dc. UPDATE 4:24pm: Referrals sent; awaiting response. 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 SIGNATURE: SHAQUILLE Nuñez PATIENT NAME: Mel Castillo DATE: July 13, 2024 TIME: 3:09 PM PAGER/CONTACT #: [phone] Normal [facility] CBC panel Auto (Bld)on 07-13 Erythrocyte distribution width (RBC) [Ratio] 17.6 % High 11.5-15.0 [facility] Comment on above: Order Comment: Speci men Type: BLOOD SPECIMENOrdering Facility: [facility] Address: [address] [place] [address] Performed By: #### 5 8410-2 ####[facility] LABCLIA [id number] [place] [address] [place] Hematocrit (Bld) [Volume fraction] 34.5 % Low 36.0-46.0 [facility] Comment on above: Order Comment: Speci men Type: BLOOD SPECIMENOrdering Facility: [facility] Address: [address] [place] [address] Performed By: #### 5 8410-2 ####[facility] LABIA [id number] [place] [address] [place] Hemoglobin (Bld) [Mass/Vol] 10.8 g/dL Low 11.5-15.5 [facility] Comment on above: Order Comment: Speci men Type: BLOOD SPECIMENOrdering Facility: [facility] Address: [address] [place] [address] Performed By: #### 5 8410-2 ####[facility] LABIA [id number] [place] [address] [place] MCH (RBC) [Entitic mass] 26.1 pg Normal 26.0-34.0 [facility] Comment on above: Order Comment: Speci men Type: BLOOD SPECIMENOrdering Facility: [facility] Address: [address] [place] [address] Performed By: #### 5 8410-2 ####[facility] LABIA [id number] [place] [address] [place] MCHC (RBC) [Mass/Vol] 31.3 g/dL Normal 30.5-36.0 [facility] Comment on above: Order Comment: Speci men Type: BLOOD SPECIMENOrdering Facility: [facility] Address: [address] [place] [address] Performed By: #### 5 8410-2 ####[facility] LABIA [id number] [place] [address] [place] MCV (RBC) [Entitic vol] 83.3 fL Normal 80.0-100.0 [facility] Comment on above: Order Comment: Speci men Type: BLOOD SPECIMENOrdering Facility: [facility] Address: [address] [place] [address] Performed By: #### 5 8410-2 ####[facility] LABCLIA [id number] [place] [address] [place] Nucleated RBC (Bld) [#/Vol] 10*3/uL Normal <0.01 [facility] Comment on above: Order Comment: Speci men Type: BLOOD SPECIMENOrdering Facility: [facility] Address: [address] [place] [address] Performed By: #### 5 8410-2 ####[facility] LABIA [id number] [place] [address] [place] Platelet mean volume (Bld) [Entitic vol] 9.7 fL Normal 9.0-12.7 [facility] Comment on above: Order Comment: Speci men Type: BLOOD SPECIMENOrdering Facility: [facility] Address: [address] [place] [address] Performed By: #### 5 8410-2 ####[facility] LABIA [id number] [place] [address] [place] Platelets (Bld) [#/Vol] 334 10*3/uL Normal 150-400 [facility] Comment on above: Order Comment: Speci men Type: BLOOD SPECIMENOrdering Facility: [facility] Address: [address] [place] [address] Performed By: #### 5 8410-2 ####[facility] LABIA [id number] [place] [address] [place] RBC (Bld) [#/Vol] 4.14 10*6/uL Normal 3.90-5.20 [facility] Comment on above: Order Comment: Speci men Type: BLOOD SPECIMENOrdering Facility: [facility] Address: [address] [place] [id number] Performed By: #### 5 8410-2 ####[facility] LABCLIA [id number] [place] [id number] [place] WBC (Bld) [#/Vol] 10.74 10*3/uL Normal 3.70-11.00 [facility] Comment on above: Order Comment: Speci men Type: BLOOD SPECIMENOrdering Facility: [facility] Address: [address] [id number] Performed By: #### 5 8410-2 ####[facility] LABCLIA [id number] [place] [id number] [place] ECHO WITH AGITATED SALINE CO NTRASTon 07-13-2024 ECHO WITH AGITATED SALINE CONTRAST Echocardiography Report: Transthoracic Echo [facility] Bedside Date of service: 07/13/2024 3:54:27 PM REGULATOR Ordering physician: FELICIA LEVY Indication: Limited KYLE [...] * * * Final * * * [email or web address] Medical Image : [id number] ISUID Normal [facility] NUTRITIONon 07-13-2024 NUTRITION HNO ID: [id number] Author: PAWAN PRESLEY DTR Service: Nutrition Therapy Author Type: Aircraft Pneudraulics Repairer Type: Nutrition Filed: 07/13/2024 11:50 Note Text: NUTRITION THERAPY PLC ENGINEER NOTE SERVICE DATE: 07/13/2024 SERVICE TIME: 1045 [...] intake over: 5 days (As noted per [facility]. Kcal noted at an average of [...] July 13, 2024 TIME: 11:49 AM Normal [facility] OPERATIVE NOon 07-13-2024 OPERATIVE NO HNO ID: [id number] Author: SAVANA LOPEZ MD Service: Ophthalmology Author Type: Physician Type: Operative Report Filed: 07/13/2024 13:32 Note Text: [place] [address] [place] [facility] OPERATIVE REPORT LOG ID: [id number] Surgery/Procedure Date: 07/13/2024 Incision/Procedure Start Time: 12:43 PM Incision Close/Procedure End Time: 1:32 PM NAME: Mel Pop [facility] #: [id number] SURGEON(S) AND OFFICE SERVICES CLERK(S): Surgeons and Role: * Savana Lopez MD [...] MD Vitreoretinal Surgery AND Ocular Inflammatory Diseases [facility] [place] Normal [facility] Renal function 2000 panelon 07-13-2024 Albumin [Mass/Vol] 3.5 g/dL Low 3.9-4.9 [facility] Comment on above: Order Comment: Speci men Type: BLOOD SPECIMENOrdering Facility: [facility] Address: [address] [place] [address] Performed By: #### 2 4362-6 ####[facility] LABCLIA [id number] [place] [address] [place] Anion gap [Moles/Vol] 10 mmol/L Normal 8-15 [facility] Comment on above: Order Comment: Speci men Type: BLOOD SPECIMENOrdering Facility: [facility] Address: [address] [place] [address] Performed By: #### 2 4362-6 ####[facility] LABCLIA [id number] [place] [address] [place] Calcium [Mass/Vol] 9.3 mg/dL Normal 8.5-10.2 [facility] Comment on above: Order Comment: Speci men Type: BLOOD SPECIMENOrdering Facility: [facility] Address: [address] [place] [address] Performed By: #### 2 4362-6 ####[facility] LABCLIA [id number] [place] [address] [place] Chloride [Moles/Vol] 100 mmol/L Normal 98-107 [facility] Comment on above: Order Comment: Speci men Type: BLOOD SPECIMENOrdering Facility: [facility] Address: [address] [place] [address] Performed By: #### 2 4362-6 ####[facility] LABCLIA [id number] [place] [address] [place] CO2 [Moles/Vol] 27 mmol/L Normal 22-30 [facility] Comment on above: Order Comment: Speci men Type: BLOOD SPECIMENOrdering Facility: [facility] Address: [address] [place] [address] Performed By: #### 2 4362-6 ####[facility] LABIA [id number] [place] [address] [place] Creatinine [Mass/Vol] 0.92 mg/dL Normal 0.58-0.96 [facility] Comment on above: Order Comment: Speci men Type: BLOOD SPECIMENOrdering Facility: [facility] Address: [address] [place] [address] Performed By: #### 2 4362-6 ####[facility] [id number] [place] [address] [place] Creatinine and Glomerular filtration rate.predicted panel (S/P/Bld) 62 mL/min/1.73m??? Normal >=60 [facility] Comment on above: Order Comment: Speci men Type: BLOOD SPECIMENOrdering Facility: [facility] Address: [address] [place] [address] Result Comment: Isa mated Glomerular Filtration Rate [...] actual GFR. Performed By: #### 2 4362-6 ####[facility] LABIA [id number] [place] [address] [place] Glucose [Mass/Vol] 103 mg/dL High 74-99 [facility] Comment on above: Order Comment: Speci men Type: BLOOD SPECIMENOrdering Facility: [facility] Address: [address] [place], [place] [id number] Result Comment: The [place] [employer] (ADA) provides guidance for cutoff [...] Standards of Medical Care in Diabetes 2016, [place] [employer]. Diabetes Care. 2016.39(Suppl 1). Performed By: #### 2 4362-6 ####[facility] LABCLIA [id number] [place] [address] [place] Phosphate [Mass/Vol] 3.5 mg/dL Normal 2.7-4.8 [facility] Comment on above: Order Comment: Speci men Type: BLOOD SPECIMENOrdering Facility: [facility] Address: [address] [place], [place] [address] Performed By: #### 2 4362-6 ####[facility] LABCLIA [id number] [place] [address] [place] Potassium [Moles/Vol] 4.2 mmol/L Normal 3.7-5.1 [facility] Comment on above: Order Comment: Speci men Type: BLOOD SPECIMENOrdering Facility: [facility] Address: [address] [place] [address] Performed By: #### 2 4362-6 ####[facility] LABCLIA [id number] [place] [id number] [place] Sodium [Moles/Vol] 137 mmol/L Normal 136-144 [facility] Comment on above: Order Comment: Speci men Type: BLOOD SPECIMENOrdering Facility: [facility] Address: [address] [place] [address] Performed By: #### 2 4362-6 ####[facility] LABCLIA [id number] [place] [address] [place] Urea nitrogen [Mass/Vol] 12 mg/dL Normal 7-21 [facility] Comment on above: Order Comment: Speci men Type: BLOOD SPECIMENOrdering Facility: [facility] Address: [address] [place] [address] Performed By: #### 2 4362-6 ####[facility] LABIA [id number] [place] [address] [place] BSCAN OD (RIGHT EYE)on 07-[address] [facility] Radiology Study observation (narrative) [facility] CBC panel Auto (Bld)on 07-12 Erythrocyte distribution width (RBC) [Ratio] 17.8 % High 11.5-15.0 [facility] Comment on above: Order Comment: Speci men Type: BLOOD SPECIMENOrdering Facility: [facility] Address: [address] [place] [address] Performed By: #### 5 8410-2 ####[facility] LABIA [id number] [place] [address] [place] Hematocrit (Bld) [Volume fraction] 34.7 % Low 36.0-46.0 [facility] Comment on above: Order Comment: Speci men Type: BLOOD SPECIMENOrdering Facility: [facility] Address: [address] [place] [address] Performed By: #### 5 8410-2 ####[facility] LABIA [id number] [place] [address] [place] Hemoglobin (Bld) [Mass/Vol] 10.6 g/dL Low 11.5-15.5 [facility] Comment on above: Order Comment: Speci men Type: BLOOD SPECIMENOrdering Facility: [facility] Address: [address] [place] [address] Performed By: #### 5 8410-2 ####[facility] LABIA [id number] [place] [address] [place] MCH (RBC) [Entitic mass] 26.4 pg Normal 26.0-34.0 [facility] Comment on above: Order Comment: Speci men Type: BLOOD SPECIMENOrdering Facility: [facility] Address: [address] [place] [address] Performed By: #### 5 8410-2 ####[facility] LABIA [id number] [place] [address] [place] MCHC (RBC) [Mass/Vol] 30.5 g/dL Normal 30.5-36.0 [facility] Comment on above: Order Comment: Speci men Type: BLOOD SPECIMENOrdering Facility: [facility] Address: [address] [place] [address] Performed By: #### 5 8410-2 ####[facility] LABIA [id number] [place] [address] [place] MCV (RBC) [Entitic vol] 86.3 fL Normal 80.0-100.0 [facility] Comment on above: Order Comment: Speci men Type: BLOOD SPECIMENOrdering Facility: [facility] Address: [address] [place] [address] Performed By: #### 5 8410-2 ####[facility] LABIA [id number] [place] [address] [place] Nucleated RBC (Bld) [#/Vol] 10*3/uL Normal <0.01 [facility] Comment on above: Order Comment: Speci men Type: BLOOD SPECIMENOrdering Facility: [facility] Address: [address] [place] [address] Performed By: #### 5 8410-2 ####[facility] LABIA [id number] [place] [address] [place] Platelet mean volume (Bld) [Entitic vol] 9.9 fL Normal 9.0-12.7 [facility] Comment on above: Order Comment: Speci men Type: BLOOD SPECIMENOrdering Facility: [facility] Address: [address] [place] [address] Performed By: #### 5 8410-2 ####[facility] LABIA [id number] [place] [address] [place] Platelets (Bld) [#/Vol] 301 10*3/uL Normal 150-400 [facility] Comment on above: Order Comment: Speci men Type: BLOOD SPECIMENOrdering Facility: [facility] Address: [address] [place] [address] Performed By: #### 5 8410-2 ####[facility] LABIA [id number] [place] [address] [place] RBC (Bld) [#/Vol] 4.02 10*6/uL Normal 3.90-5.20 [facility] Comment on above: Order Comment: Speci men Type: BLOOD SPECIMENOrdering Facility: [facility] Address: [address] [place] [address] Performed By: #### 5 8410-2 ####[facility] LABIA [id number] [place] [address] [place] WBC (Bld) [#/Vol] 10.07 10*3/uL Normal 3.70-11.00 [facility] Comment on above: Order Comment: Speci men Type: BLOOD SPECIMENOrdering Facility: [facility] Address: [address] [place] [address] Performed By: #### 5 8410-2 ####[facility] LABCLIA [id number] [place] [address] [place] PT EDon 07-12-2024 PT ED HNO ID: [id number] Author: GISSELL POPE RPh Service: Pharmacy Author [...] inpatient anticoagulant education. Gissell Pope RPh Normal [facility] Renal function 2000 panelon 07-12-2024 Albumin [Mass/Vol] 3.4 g/dL Low 3.9-4.9 [facility] Comment on above: Order Comment: Speci men Type: BLOOD SPECIMENOrdering Facility: [facility] Address: [address] [place] [address] Performed By: #### 2 4362-6 ####[facility] LABCLIA [id number] [place] [address] [place] Anion gap [Moles/Vol] 14 mmol/L Normal 8-15 [facility] Comment on above: Order Comment: Speci men Type: BLOOD SPECIMENOrdering Facility: [facility] Address: [address] [place] [address] Performed By: #### 2 4362-6 ####[facility] LABCLIA [id number] [place] [address] [place] Calcium [Mass/Vol] 9.3 mg/dL Normal 8.5-10.2 [facility] Comment on above: Order Comment: Speci men Type: BLOOD SPECIMENOrdering Facility: [facility] Address: [address] [place] [address] Performed By: #### 2 4362-6 ####[facility] LABCLIA [id number] [place] [address] [place] Chloride [Moles/Vol] 101 mmol/L Normal 98-107 [facility] Comment on above: Order Comment: Speci men Type: BLOOD SPECIMENOrdering Facility: [facility] Address: [address] [place] [address] Performed By: #### 2 4362-6 ####[facility] LABCLIA [id number] [place] [address] [place] CO2 [Moles/Vol] 21 mmol/L Low 22-30 [facility] Comment on above: Order Comment: Speci men Type: BLOOD SPECIMENOrdering Facility: [facility] Address: [address] [place] [address] Performed By: #### 2 4362-6 ####[facility] LABCLIA [id number] [place] [address] [place] Creatinine [Mass/Vol] 0.81 mg/dL Normal 0.58-0.96 [facility] Comment on above: Order Comment: Speci men Type: BLOOD SPECIMENOrdering Facility: [facility] Address: [address] [place] [address] Performed By: #### 2 4362-6 ####[facility] LABIA [id number] [place] [address] [place] Creatinine and Glomerular filtration rate.predicted panel (S/P/Bld) 72 mL/min/1.73m??? Normal >=60 [facility] Comment on above: Order Comment: Speci men Type: BLOOD SPECIMENOrdering Facility: [facility] Address: [address] [place] [address] Result Comment: Isa mated Glomerular Filtration Rate [...] actual GFR. Performed By: #### 2 4362-6 ####[facility] LABCLIA [id number] [address] [address] [place] Glucose [Mass/Vol] 100 mg/dL High 74-99 [facility] Comment on above: Order Comment: Specrobson mason Type: BLOOD SPECIMENOrdering Facility: [facility] Address: [address] [place] [address] Result Comment: The [place] [employer] (ADA) provides guidance for cutoff [...] Standards of Medical Care in Diabetes 2016, [place] [employer]. Diabetes Care. 2016.39(Suppl 1). Performed By: #### 2 4362-6 ####[facility] LABCLIA [id number] [place] [id number] [place] Phosphate [Mass/Vol] 2.7 mg/dL Normal 2.7-4.8 [facility] Comment on above: Order Comment: Rhina mason Type: BLOOD SPECIMENOrdering Facility: [facility] Address: [address] [place] [address] Performed By: #### 2 4362-6 ####[facility] LABCLIA [id number] [address] [address] [place] Potassium [Moles/Vol] 4.0 mmol/L Normal 3.7-5.1 [facility] Comment on above: Order Comment: Speci men Type: BLOOD SPECIMENOrdering Facility: [facility] Address: [address] [place] [address] Performed By: #### 2 4362-6 ####[facility] LABCLIA [id number] [place] [id number] [place] Sodium [Moles/Vol] 136 mmol/L Normal 136-144 [facility] Comment on above: Order Comment: Speci men Type: BLOOD SPECIMENOrdering Facility: [facility] Address: [address] [place] [address] Performed By: #### 2 4362-6 ####[facility] LABIA [id number] [place] [address] [place] Urea nitrogen [Mass/Vol] 12 mg/dL Normal 7-21 [facility] Comment on above: Order Comment: Speci men Type: BLOOD SPECIMENOrdering Facility: [facility] Address: [address] [place] [address] Performed By: #### 2 4362-6 ####[facility] LABIA [id number] [place] [address] [place] Right eye Photo documentatio non 07-12-[address] [facility] Radiology Study observation (narrative) Amarjit chaudhry [facility] THERAPY NTon 07-12-2024 THERAPY NT HNO ID: [id number] Author: RYANN GUZMÁN OT/[place] Service: Occupational Therapy Author Type: Occupational Therapist Type: Therapy (PT/OT/Speech/Resp) Filed: 07/12/2024 12:26 Note Text: OCCUPATIONAL THERAPY MISSED VISIT SERVICE DATE: 07/12/2024 SERVICE TIME: 1226 ROOM: [place] [id number] (I20 - OPHTHALMOLOGY) Patient not seen due to Test / Procedure. SIGNATURE: JUANY Willett PATIENT NAME: Mel Castillo DATE: July 12, 2024 TIME: 12:26 PM Normal [facility] CBC panel Auto (Bld)on 07-11 Erythrocyte distribution width (RBC) [Ratio] 17.6 % High 11.5-15.0 [facility] Comment on above: Order Comment: Speci men Type: BLOOD SPECIMEN [facility] Address: [address] [place] [address] Performed By: #### 5 8410-2 #### [facility] CLIA [id number] [address] [place] [address] [place] Hematocrit (Bld) [Volume fraction] 32.3 % Low 36.0-46.0 [facility] Comment on above: Order Comment: Speci men Type: BLOOD SPECIMEN [facility] Address: [address] [place] [address] Performed By: #### 5 8410-2 #### [facility] CLIA [id number] [address] [place] [address] [place] Hemoglobin (Bld) [Mass/Vol] 10.5 g/dL Low 11.5-15.5 [facility] Comment on above: Order Comment: Speci men Type: BLOOD SPECIMEN [facility] Address: [address] [place] [address] Performed By: #### 5 8410-2 #### [facility] CLIA [id number] [address] [place] [address] [place] MCH (RBC) [Entitic mass] 27.0 pg Normal 26.0-34.0 [facility] Comment on above: Order Comment: Speci men Type: BLOOD SPECIMEN [facility] Address: [address] [place] [address] Performed By: #### 5 8410-2 #### [facility] CLIA [id number] [address] [place] [address] [place] MCHC (RBC) [Mass/Vol] 32.5 g/dL Normal 30.5-36.0 [facility] Comment on above: Order Comment: Speci men Type: BLOOD SPECIMEN [facility] Address: [address] [place] [address] Performed By: #### 5 8410-2 #### [facility] CLIA [id number] [address] [place] [address] [place] MCV (RBC) [Entitic vol] 83.0 fL Normal 80.0-100.0 [facility] Comment on above: Order Comment: Speci men Type: BLOOD SPECIMEN [facility] Address: [address] [place] [address] Performed By: #### 5 8410-2 #### [facility] CLIA [id number] [address] [place] [address] [place] Nucleated RBC (Bld) [#/Vol] 10*3/uL Normal <0.01 [facility] Comment on above: Order Comment: Speci men Type: BLOOD SPECIMEN [facility] Address: [address] [place] [address] Performed By: #### 5 8410-2 #### [facility] CLIA [id number] [address] [place] [address] [place] Platelet mean volume (Bld) [Entitic vol] 9.9 fL Normal 9.0-12.7 [facility] Comment on above: Order Comment: Speci men Type: BLOOD SPECIMEN [facility] Address: [address] [place] [address] Performed By: #### 5 8410-2 #### [facility] CLIA [id number] [address] [place] [address] [place] Platelets (Bld) [#/Vol] 289 10*3/uL Normal 150-400 [facility] Comment on above: Order Comment: Speci men Type: BLOOD SPECIMEN Ordering Facility: [facility] Address: [address] [place] [address] Performed By: #### 5 8410-2 #### [facility] CLIA [id number] [address] [place] [address] [place] RBC (Bld) [#/Vol] 3.89 10*6/uL Low 3.90-5.20 [facility] Comment on above: Order Comment: Speci men Type: BLOOD SPECIMEN Ordering Facility: [facility] Address: [address] [place] [address] Performed By: #### 5 8410-2 #### [facility] CLIA [id number] [address] [place] [address] [place] WBC (Bld) [#/Vol] 8.32 10*3/uL Normal 3.70-11.00 [facility] Comment on above: Order Comment: Speci men Type: BLOOD SPECIMEN Ordering Facility: [facility] Address: [address] [place] [address] Performed By: #### 5 8410-2 #### [facility] CLIA [id number] [address] [place] [address] [place] Renal function 2000 panelon 07-11-2024 Albumin [Mass/Vol] 3.4 g/dL Low 3.9-4.9 [facility] Comment on above: Order Comment: Speci men Type: BLOOD SPECIMENOrdering Facility: [facility] Address: [address] [place] [address] Performed By: #### 2 4362-6 ####[facility] [id number] [place] [address] [place] Anion gap [Moles/Vol] 11 mmol/L Normal 8-15 [facility] Comment on above: Order Comment: Speci men Type: BLOOD SPECIMENOrdering Facility: [facility] Address: [address] [place] [address] Performed By: #### 2 4362-6 ####[facility] [id number] [place] [address] [place] Calcium [Mass/Vol] 8.9 mg/dL Normal 8.5-10.2 [facility] Comment on above: Order Comment: Speci men Type: BLOOD SPECIMENOrdering Facility: [facility] Address: [address] [place] [address] Performed By: #### 2 4362-6 ####[facility] [id number] [place] [address] [place] Chloride [Moles/Vol] 103 mmol/L Normal 98-107 [facility] Comment on above: Order Comment: Speci men Type: BLOOD SPECIMENOrdering Facility: [facility] Address: [address] [place] [address] Performed By: #### 2 4362-6 ####[facility] [id number] [place] [address] [place] CO2 [Moles/Vol] 23 mmol/L Normal 22-30 [facility] Comment on above: Order Comment: Speci men Type: BLOOD SPECIMENOrdering Facility: [facility] Address: [address] [place] [address] Performed By: #### 2 4362-6 ####[facility] [id number] [place] [address] [place] Creatinine [Mass/Vol] 0.91 mg/dL Normal 0.58-0.96 [facility] Comment on above: Order Comment: Speci men Type: BLOOD SPECIMENOrdering Facility: [facility] Address: [address] [place] [address] Performed By: #### 2 4362-6 ####[facility] [id number] [place] [address] [place] Creatinine and Glomerular filtration rate.predicted panel (S/P/Bld) 62 mL/min/1.73m??? Normal >=60 [facility] Comment on above: Order Comment: Speci men Type: BLOOD SPECIMENOrdering Facility: [facility] Address: [address] [place] [address] Result Comment: Isa mated Glomerular Filtration Rate [...] actual GFR. Performed By: #### 2 4362-6 ####[facility] [id number] [place] [address] [place] Glucose [Mass/Vol] 98 mg/dL Normal 74-99 [facility] Comment on above: Order Comment: Rhina mason Type: BLOOD SPECIMENOrdering Facility: [facility] Address: [address] [place] [address] Result Comment: The [place] [employer] (ADA) provides guidance for cutoff [...] Standards of Medical Care in Diabetes 2016, [place] [employer]. Diabetes Care. 2016.39(Suppl 1). Performed By: #### 2 4362-6 ####[facility] [id number] [place] [address] [place] Phosphate [Mass/Vol] 2.8 mg/dL Normal 2.7-4.8 [facility] Comment on above: Order Comment: Rhina mason Type: BLOOD SPECIMENOrdering Facility: [facility] Address: [address] [id number] Performed By: #### 2 4362-6 ####[facility] [id number] [place] [address] [place] Potassium [Moles/Vol] 3.6 mmol/L Low 3.7-5.1 [facility] Comment on above: Order Comment: Speci men Type: BLOOD SPECIMENOrdering Facility: [facility] Address: [address] [place] [address] Performed By: #### 2 4362-6 ####[facility] [id number] [place] [address] [place] Sodium [Moles/Vol] 137 mmol/L Normal 136-144 [facility] Comment on above: Order Comment: Speci men Type: BLOOD SPECIMENOrdering Facility: [facility] Address: [address] [place] [address] Performed By: #### 2 4362-6 ####[facility] [id number] [place] [address] [place] Urea nitrogen [Mass/Vol] 15 mg/dL Normal 7-21 [facility] Comment on above: Order Comment: Speci men Type: BLOOD SPECIMENOrdering Facility: [facility] Address: [address] [place] [address] Performed By: #### 2 4362-6 ####[facility] [id number] [place] [address] [place] CASE MANAGEMon 07-10-2024 CASE MANAGEM HNO ID: [id number] Author: TREY HUGHES LSW Service: Social Work Author Type: Prosthetic Dentist Type: Care Mgt Progress Note Filed: 07/10/2024 14:42 Note Text: CARE MANAGEMENT PROGRESS NOTE SERVICE DATE: 07/10/2024 SERVICE TIME: 2:38 PM LOS: 3 days Post-Acute Discharge Planning Patient Goal(s): Increase strength [place] Explained: [place] Given: Yes Post-Acute Discharge Plan: [...] July 10, 2024 TIME: 2:38 PM Normal [facility] CBC panel Auto (Bld)on 07-10 Erythrocyte distribution width (RBC) [Ratio] 17.5 % High 11.5-15.0 [facility] Comment on above: Order Comment: Speci men Type: BLOOD SPECIMEN Ordering Facility: [facility] Address: [address] [place] [address] Performed By: #### 2 276-4 #### [facility] CLIA [id number] [address] [place] [address] [place] Hematocrit (Bld) [Volume fraction] 31.7 % Low 36.0-46.0 [facility] Comment on above: Order Comment: Speci men Type: BLOOD SPECIMEN Ordering Facility: [facility] Address: [address] [place] [address] Performed By: #### 2 276-4 #### [facility] CLIA [id number] [address] [place] [address] [place] Hemoglobin (Bld) [Mass/Vol] 9.9 g/dL Low 11.5-15.5 [facility] Comment on above: Order Comment: Speci men Type: BLOOD SPECIMEN Ordering Facility: [facility] Address: [address] [place] [address] Performed By: #### 2 276-4 #### [facility] CLIA [id number] [address] [place] [address] [place] MCH (RBC) [Entitic mass] 26.0 pg Normal 26.0-34.0 [facility] Comment on above: Order Comment: Speci men Type: BLOOD SPECIMEN Ordering Facility: [facility] Address: [address] [place] [address] Performed By: #### 2 276-4 #### [facility] CLIA [id number] [address] [place] [address] [place] MCHC (RBC) [Mass/Vol] 31.2 g/dL Normal 30.5-36.0 [facility] Comment on above: Order Comment: Speci men Type: BLOOD SPECIMEN Ordering Facility: [facility] Address: [address] [place] [address] Performed By: #### 2 276-4 #### [facility] CLIA [id number] [address] [place] [address] [place] MCV (RBC) [Entitic vol] 83.2 fL Normal 80.0-100.0 [facility] Comment on above: Order Comment: Speci men Type: BLOOD SPECIMEN Ordering Facility: [facility] Address: [address] [place] [address] Performed By: #### 2 276-4 #### [facility] CLIA [id number] [address] [place] [address] [place] Nucleated RBC (Bld) [#/Vol] 10*3/uL Normal <0.01 [facility] Comment on above: Order Comment: Speci men Type: BLOOD SPECIMEN Ordering Facility: [facility] Address: [address] [place] [address] Performed By: #### 2 276-4 #### [facility] CLIA [id number] [address] [place] [address] [place] Platelet mean volume (Bld) [Entitic vol] 10.3 fL Normal 9.0-12.7 [facility] Comment on above: Order Comment: Speci men Type: BLOOD SPECIMEN Ordering Facility: [facility] Address: [address] [place] [address] Performed By: #### 2 276-4 #### [facility] CLIA [id number] [address] [place] [address] [place] Platelets (Bld) [#/Vol] 336 10*3/uL Normal 150-400 [facility] Comment on above: Order Comment: Speci men Type: BLOOD SPECIMEN Ordering Facility: [facility] Address: [address] [place] [address] Performed By: #### 2 276-4 #### [facility] CLIA [id number] [address] [place] [address] [place] RBC (Bld) [#/Vol] 3.81 10*6/uL Low 3.90-5.20 [facility] Comment on above: Order Comment: Speci men Type: BLOOD SPECIMEN Ordering Facility: [facility] Address: [address] [place] [address] Performed By: #### 2 276-4 #### [facility] CLIA [id number] [address] [place] [address] [place] WBC (Bld) [#/Vol] 6.35 10*3/uL Normal 3.70-11.00 [facility] Comment on above: Order Comment: Speci men Type: BLOOD SPECIMEN Ordering Facility: [facility] Address: [address] [place] [address] Performed By: #### 2 276-4 #### [facility] CLIA [id number] [address] [place] [address] [place] Renal function 2000 panelon 07-10-2024 Albumin [Mass/Vol] 3.5 g/dL Low 3.9-4.9 [facility] Comment on above: Order Comment: Speci men Type: BLOOD SPECIMEN Ordering Facility[facility] Address: [address] [place] [address] Performed By: #### 2 4362-6 #### [facility] CLIA [id number] [address] [place] [address] [id number] [address] [place] Anion gap [Moles/Vol] 12 mmol/L Normal 8-15 [facility] Comment on above: Order Comment: Speci men Type: BLOOD SPECIMEN Ordering Facility: [facility] Address: [address] [place] [address] Performed By: #### 2 4362-6 #### [facility] CLIA [id number] [address] [place] [address] [place] Calcium [Mass/Vol] 9.0 mg/dL Normal 8.5-10.2 [facility] Comment on above: Order Comment: Speci men Type: BLOOD SPECIMEN Ordering Facility: [facility] Address: [address] [place] [address] Performed By: #### 2 4362-6 #### [facility] CLIA [id number] [address] [place] [address] [place] Chloride [Moles/Vol] 104 mmol/L Normal 98-107 [facility] Comment on above: Order Comment: Speci men Type: BLOOD SPECIMEN Ordering Facility: [facility] Address: [address] [place] [address] Performed By: #### 2 4362-6 #### [facility] CLIA [id number] [address] [place] [address] [place] CO2 [Moles/Vol] 22 mmol/L Normal 22-30 [facility] Comment on above: Order Comment: Speci men Type: BLOOD SPECIMEN Order[facility] Address: [address] [place] [address] Performed By: #### 2 4362-6 #### [facility] CLIA [id number] [address] [place] [address] [place] Creatinine [Mass/Vol] 0.93 mg/dL Normal 0.58-0.96 [facility] Comment on above: Order Comment: Speci men Type: BLOOD SPECIMEN Ordering Facility: [facility] Address: [address] [place], [place] [address] Performed By: #### 2 4362-6 #### [facility] CLIA [id number] [address] [place] [address] [place] Creatinine and Glomerular filtration rate.predicted panel (S/P/Bld) 61 mL/min/1.73m??? Normal >=60 [facility] Comment on above: Order Comment: Rhina msaon Type: BLOOD SPECIMEN Ordering Facility: [facility] Address: [address] [place] [address] Result Comment: Sia mated Glomerular Filtration Rate (eGFR) is calculated [...] GFR. Performed By: #### 2 4362-6 #### [facility] CLIA [id number] [address] [place] [address] [place] Glucose [Mass/Vol] 102 mg/dL High 74-99 [facility] Comment on above: Order Comment: Rhina mason Type: BLOOD SPECIMEN Ordering Facility: [facility] Address: [address] [place] [address] Result Comment: The [place] [employer] (ADA) provides guidance for cutoff [...] Standards of Medical Care in Diabetes 2016, [place] [employer]. Diabetes Care. 2016.39(Suppl 1). Performed By: #### 2 4362-6 #### [facility] CLIA [id number] [address] [place] [address] [place] Phosphate [Mass/Vol] 2.6 mg/dL Low 2.7-4.8 [facility] Comment on above: Order Comment: Rhina mason Type: BLOOD SPECIMEN Ordering Facility: [facility] Address: [address] [place] [address] Performed By: #### 2 4362-6 #### [facility] CLIA [id number] [address] [place] [address] [place] Potassium [Moles/Vol] 3.9 mmol/L Normal 3.7-5.1 [facility] Comment on above: Order Comment: Speci men Type: BLOOD SPECIMEN Ordering Facility: [facility] Address: [address] [place] [address] Performed By: #### 2 4362-6 #### [facility] CLIA [id number] [address] [place] [address] [place] Sodium [Moles/Vol] 138 mmol/L Normal 136-144 [facility] Comment on above: Order Comment: Speci men Type: BLOOD SPECIMEN Ordering Facility: [facility] Address: [address] [place] [address] Performed By: #### 2 4362-6 #### [facility] CLIA [id number] [address] [place] [address] [place] Urea nitrogen [Mass/Vol] 21 mg/dL Normal 7-21 [facility] Comment on above: Order Comment: Speci men Type: BLOOD SPECIMEN Ordering Facility: [facility] Address: [address] [place] [address] Performed By: #### 2 4362-6 #### [facility] CLIA [id number] [address] [place] [address] [place] THERAPY NTon 07-10-2024 THERAPY NT HNO ID: [id number] Author: SANTIAGO GUZMAN OT/L Service: Occupational Therapy Author Type: Occupational Therapist Type: Therapy (PT/OT/Speech/Resp) Filed: 07/10/2024 10:00 Note Text: Occupational Therapy Evaluation Summary SERVICE DATE: 07/10/2024 SERVICE TIME: 0840 to 0920 ROOM: [place] [address] OT 6 Clicks Score: 15 DISCHARGE RECOMMENDATIONS [...] Therapy Interventions: Good Participation in Activities OT eduar completed - pt pleasant throughout. AANDOx3 overall. Education provided. Bed mobility, functional mobility and ADL's completed this morning and wheeled walker utilized. Max vc's required for all tasks d/t visual deficits. Min assist required for functional mobility tasks d/t visual deficits. 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 SNF rec at this time pending [...] Muscle Weakness (generalized) TREATMENT INTERVENTIONS Evaluation, Self Longterm Management (96463) Timed Code Treatment (minutes): 25 Skilled Treatment [...] Sit to Stand, Standing Balance to Improve [place] with ADLs/Self-Care, Sitting Balance to Improve [place] with ADLs/Self-Care, Life Roles/Routines/Habits THERAPEUTIC SKILLS USED Therapeutic Use of Self, Physical Assist, Movement Facilitation, Management of Critical Lines, Tubes and/or Drains FUNCTIONAL STATUS Activities of Daily Living Assist Level Additional Information Feeding Minimal Assistance Grooming Moderate Assistance Bathing Upper Body Minimal Assistance Bathing Lower Body Ma (more content not included)... Normal [facility] CBC panel Auto (Bld)on 07-09 Erythrocyte distribution width (RBC) [Ratio] 17.7 % High 11.5-15.0 [facility] Comment on above: Order Comment: Speci men Type: BLOOD SPECIMEN Ordering Facility: [facility] Address: [address] [place], [place] [address] Performed By: #### 2 4362-6 #### [facility] CLIA [id number] [address] [place] [address] [place] Hematocrit (Bld) [Volume fraction] 33.9 % Low 36.0-46.0 [facility] Comment on above: Order Comment: Speci men Type: BLOOD SPECIMEN Ordering Facility: [facility] Address: [address] [place] [address] Performed By: #### 2 4362-6 #### [facility] CLIA [id number] [address] [place] [address] [place] Hemoglobin (Bld) [Mass/Vol] 10.5 g/dL Low 11.5-15.5 [facility] Comment on above: Order Comment: Speci men Type: BLOOD SPECIMEN Ordering Facility: [facility] Address: [address] [place] [address] Performed By: #### 2 4362-6 #### [facility] CLIA [id number] [address] [place] [address] [place] MCH (RBC) [Entitic mass] 26.6 pg Normal 26.0-34.0 [facility] Comment on above: Order Comment: Speci men Type: BLOOD SPECIMEN Ordering Facility: [facility] Address: [address] [place] [address] Performed By: #### 2 4362-6 #### [facility] CLIA [id number] [address] [place] [address] [place] MCHC (RBC) [Mass/Vol] 31.0 g/dL Normal 30.5-36.0 [facility] Comment on above: Order Comment: Speci men Type: BLOOD SPECIMEN Ordering Facility: [facility] Address: [address] [place] [address] Performed By: #### 2 4362-6 #### [facility] CLIA [id number] [address] [place] [address] [place] MCV (RBC) [Entitic vol] 86.0 fL Normal 80.0-100.0 [facility] Comment on above: Order Comment: Speci men Type: BLOOD SPECIMEN Ordering Facility: [facility] Address: [address] [place] [address] Performed By: #### 2 4362-6 #### [facility] CLIA [id number] [address] [place] [address] [place] Nucleated RBC (Bld) [#/Vol] 10*3/uL Normal <0.01 [facility] Comment on above: Order Comment: Speci men Type: BLOOD SPECIMEN Ordering Facility: [facility] Address: [address] [place] [address] Performed By: #### 2 4362-6 #### [facility] CLIA [id number] [address] [place] [address] [place] Platelet mean volume (Bld) [Entitic vol] 10.4 fL Normal 9.0-12.7 [facility] Comment on above: Order Comment: Speci men Type: BLOOD SPECIMEN Ordering Facility: [facility] Address: [address] [place] [address] Performed By: #### 2 4362-6 #### [facility] CLIA [id number] [address] [place] [address] [place] Platelets (Bld) [#/Vol] 346 10*3/uL Normal 150-400 [facility] Comment on above: Order Comment: Speci men Type: BLOOD SPECIMEN Ordering Facility: [facility] Address: [address] [place] [address] Performed By: #### 2 4362-6 #### [facility] CLIA [id number] [address] [place] [address] [place] RBC (Bld) [#/Vol] 3.94 10*6/uL Normal 3.90-5.20 [facility] Comment on above: Order Comment: Speci men Type: BLOOD SPECIMEN Ordering Facility: [facility] Address: [address] [place] [address] Performed By: #### 2 4362-6 #### [facility] CLIA [id number] [address] [place] [address] [place] WBC (Bld) [#/Vol] 8.22 10*3/uL Normal 3.70-11.00 [facility] Comment on above: Order Comment: Speci men Type: BLOOD SPECIMEN Ordering Facility: [facility] Address: [address] [place] [address] Performed By: #### 2 4362-6 #### [facility] CLIA [id number] [address] [place] [address] [place] Renal function 2000 panelon 07-09-2024 Albumin [Mass/Vol] 3.6 g/dL Low 3.9-4.9 [facility] Comment on above: Order Comment: Speci men Type: BLOOD SPECIMEN Ordering Facility: [facility] Address: [address] [place] [address] Performed By: #### 2 4362-6 #### [facility] CLIA [id number] [address] [place] [address] [place] Anion gap [Moles/Vol] 11 mmol/L Normal 8-15 [facility] Comment on above: Order Comment: Speci men Type: BLOOD SPECIMEN Ordering Facility: [facility] Address: [address] [place] [address] Performed By: #### 2 4362-6 #### [facility] CLIA [id number] [address] [place] [address] [place] Calcium [Mass/Vol] 8.8 mg/dL Normal 8.5-10.2 [facility] Comment on above: Order Comment: Speci men Type: BLOOD SPECIMEN Ordering Facility: [facility] Address: [address] [place] [address] Performed By: #### 2 4362-6 #### [facility] CLIA [id number] [address] [place] [address] [place] Chloride [Moles/Vol] 103 mmol/L Normal 98-107 [facility] Comment on above: Order Comment: Speci men Type: BLOOD SPECIMEN Ordering Facility: [facility] Address: [address] [place] [address] Performed By: #### 2 4362-6 #### [facility] CLIA [id number] [address] [place] [address] [place] CO2 [Moles/Vol] 22 mmol/L Normal 22-30 [facility] Comment on above: Order Comment: Speci men Type: BLOOD SPECIMEN Ordering Facility: [facility] Address: [address] [place] [address] Performed By: #### 2 4362-6 #### [facility] CLIA [id number] [address] [place] [address] [place] Creatinine [Mass/Vol] 0.94 mg/dL Normal 0.58-0.96 [facility] Comment on above: Order Comment: Speci men Type: BLOOD SPECIMEN Ordering Facility: [facility] Address: [address] [place] [address] Performed By: #### 2 4362-6 #### [facility] CLIA [id number] [address] [place] [address] [place] Creatinine and Glomerular filtration rate.predicted panel (S/P/Bld) 60 mL/min/1.73m??? Normal >=60 [facility] Comment on above: Order Comment: Speci men Type: BLOOD SPECIMEN Ordering Facility: [facility] Address: [address] [place] [address] Result Comment: Isa mated Glomerular Filtration Rate [...] GFR. Performed By: #### 2 4362-6 #### [facility] CLIA [id number] [address] [place] [address] [place] Glucose [Mass/Vol] 158 mg/dL High 74-99 [facility] Comment on above: Order Comment: Rhina mason Type: BLOOD SPECIMEN Ordering Facility: [facility] Address: [address] [place] [address] Result Comment: The [place] [employer] (ADA) provides guidance for cutoff [...] Standards of Medical Care in Diabetes 2016, [place] [employer]. Diabetes Care. 2016.39(Suppl 1). Performed By: #### 2 4362-6 #### [facility] CLIA [id number] [address] [place] [address] [place] Phosphate [Mass/Vol] 2.0 mg/dL Low 2.7-4.8 [facility] Comment on above: Order Comment: Rhina mason Type: BLOOD SPECIMEN Ordering Facility: [facility] Address: [address] [place] [address] Performed By: #### 2 4362-6 #### [facility] CLIA [id number] [address] [place] [address] [place] Potassium [Moles/Vol] 4.1 mmol/L Normal 3.7-5.1 [facility] [facility] Comment on above: Order Comment: Rhina mason Type: BLOOD SPECIMEN Ordering Facility: [facility] Address: [address] [place] [address] Performed By: #### 2 4362-6 #### [facility] CLIA [id number] [address] [place] [address] [place] Sodium [Moles/Vol] 136 mmol/L Normal 136-144 [facility] Comment on above: Order Comment: Speci men Type: BLOOD SPECIMEN Ordering Facility: [facility] Address: [address] [place] [address] Performed By: #### 2 4362-6 #### [facility] CLIA [id number] [address] [place] [address] [place] Urea nitrogen [Mass/Vol] 18 mg/dL Normal 7-21 [facility] Comment on above: Order Comment: Speci men Type: BLOOD SPECIMEN Ordering Facility: [facility] Address: [address] [place] [address] Performed By: #### 2 4362-6 #### [facility] CLIA [id number] [address] [place] [address] [place] CONSULTon 07-08-2024 CONSULT HNO ID: [id number] Author: JARED GILMORE MD Service: Ophthalmology Author [...] NLP vision Tatyana Johnson MD Ophthalmology Resident Tue-Tue, 7 am - 5 pm, page [phone] Tue-Tue, 5 pm - 7 am, page [phone] Weekends (Fri 5 pm to Mon 7 am), page [phone] EXAM: Base Eye Exam Visual Acuity Right Left Dist sc CF at 3' Tonometry (Applanation, 8:30 AM) Right Left Pressure 14 Pupils Dark Light Shape React Right 6 (more content not included)... Normal [facility] [id number] 07-07-2024 [id number] Normal [facility] BASIC METABOLIC PANELon 12-2 Anion gap [Moles/Vol] 4 mmol/L Normal 3-13 [facility] Comment on above: Performed By: #### L AB15 ####Patient Services Technician: VELMA VALADEZ ([phone])[facility] ([facility])[address] [place] [address] Calcium [Mass/Vol] 8.7 mg/dL Low 8.8-10.0 [facility] Comment on above: Performed By: #### L AB15 ####Patient Services Technician: VELMA VALADEZ ([phone])[facility] ([facility])[address] [place] [address] Chloride [Moles/Vol] 111 mmol/L High 98-107 [facility] Comment on above: Performed By: #### L AB15 ####Patient Services Technician: VELMA VALADEZ ([phone])[facility] ([facility])[address] [place] [address] CO2 [Moles/Vol] 23 mmol/L Normal 23-31 [facility] Comment on above: Performed By: #### L AB15 ####Patient Services Technician: VELMA VALADEZ ([phone])[facility] ([facility])[address] [place] [address] Creatinine [Mass/Vol] 0.84 mg/dL Normal 0.57-1.11 [facility] Comment on above: Performed By: #### L AB15 ####Patient Services Technician: VELMA VALADEZ ([phone])[facility] ([facility])[address] [place] [address] GLOMERULAR FILTRATION RATE ML/MIN/1.73 SQ M.PREDICTED 68.6 mL/min/1.73m*2 Normal >60.0 [facility] Comment on above: Result Comment: Calc ulation based on the Chronic Kidney Disease Epidemiology Collaboration (CKD-EPI) equation refit without adjustment for race Performed By: #### L AB15 ####Patient Services Technician: VELMA VALADEZ ([phone])[facility])[address] [place] [address] Glucose [Mass/Vol] 102 mg/dL Normal 82-115 [facility] Comment on above: Performed By: #### L AB15 ####Patient Services Technician: VELMA VALADEZ ([phone])[facility])[address] [place] [address] Potassium [Moles/Vol] 4.0 mmol/L Normal 3.5-5.1 [facility] Comment on above: Result Comment: [facility] potassium values may be up to 0.5 mmol/L lower than serum values. Performed By: #### L AB15 ####Patient Services Technician: VELMA VALADEZ ([phone])[facility])[address] [place] [address] Sodium [Moles/Vol] 138 mmol/L Normal 136-145 [facility] Comment on above: Performed By: #### L AB15 ####Patient Services Technician: VELMA VALADEZ ([phone])[address] Urea nitrogen [Mass/Vol] 19 mg/dL Normal 9-23 [facility] Comment on above: Performed By: #### L AB15 ####Patient Services Technician: VELMA VALADEZ ([phone])[facility])[address] [place] [address] Basic metabolic 1998 panelon 07-07-2024 Anion gap [Moles/Vol] 4 mmol/L 3 - 13 mmol/L [facility] Calcium [Mass/Vol] 8.7 mg/dL Low 8.8 - 10. 0 mg/dL [facility] Chloride [Moles/Vol] 111 mmol/L High 98 - 10 7 mmol/L [facility] CO2 [Moles/Vol] 23 mmol/L 23 - 31 mmol/L [facility] Creatinine [Mass/Vol] 0.84 mg/dL 0.57 - 1.11 mg/dL [facility] [employer] GFR/1.73 sq M.predicted (S/P/Bld) [Vol rate/Area] 68.6 mL/min - PINF [facility] [employer] Comment on above: Calculation based on the Chronic Kidney Disease Epidemiology Collaboration (CKD-EPI) equation refit without adjustment for race Glucose [Mass/Vol] 102 mg/dL 82 - 115 mg/dL [facility] Interpretation and review of laboratory results Abnormal [facility] [employer] Potassium [Moles/Vol] 4 mmol/L 3.5 - 5.1 mmol/L [facility] [employer] Comment on above: Plasma potassium chris ues may be up to 0.5 mmol/L lower than serum values. Sodium [Moles/Vol] 138 mmol/L 136 - 145 mmol/L [facility] [employer] Urea nitrogen [Mass/Vol] 19 mg/dL 9 - 23 mg/dL [facility] [employer] CBC W Auto Differential pane l (Bld)Ordered By: Devika Eisenberg on 07-07-2024 Basophils (Bld) [#/Vol] 0 10*3/uL 0.0 - 0.2 10*3/uL [facility] [employer] Basophils/100 WBC (Bld) 0.4 % 0.0 - 2.0 % [facility] [employer] Eosinophils (Bld) [#/Vol] 0.1 10*3/uL 0.0 - 0.5 10*3/uL [facility] [employer] Eosinophils/100 WBC (Bld) 1.3 % 0.0 - 6.0 % [facility] [employer] Erythrocyte distribution width (RBC) [Ratio] 17.6 % High 11.5 - 15.0 % [facility] [employer] Hematocrit (Bld) [Volume fraction] 29.9 % Low 35.0 - 47.0 % [facility] [employer] Hemoglobin (Bld) [Mass/Vol] 9.1 g/dL Low 11.7 - 16.0 g/dL [facility] [employer] Immature granulocytes (Bld) [#/Vol] 0 10*3/uL NINF - 0.1 10*3/uL [facility] [employer] Immature granulocytes/100 WBC (Bld) 0.2 % 0.0 - 2.0 % [facility] Interpretation and review of laboratory results Abnormal [facility] [employer] Lymphocytes (Bld) [#/Vol] 1.2 10*3/uL 1.0 - 4.3 10*3/uL [facility] Lymphocytes/100 WBC (Bld) 22 % 15.0 - 45.0 % [facility] MCH (RBC) [Entitic mass] 25.9 pg Low 26.0 - 34.0 pg [facility] MCHC (RBC) [Mass/Vol] 30.4 % Low 30.5 - 36.0 % [facility] MCV (RBC) [Entitic vol] 84.9 fL 77.0 - 99.0 fL [facility] Monocytes (Bld) [#/Vol] 0.6 10*3/uL 0.0 - 0.9 10*3/uL [facility] Monocytes/100 WBC (Bld) 10 % 5.0 - 13.0 % [facility] Neutrophils (Bld) [#/Vol] 3.7 10*3/uL 1.8 - 7.5 10*3/uL [facility] Neutrophils/100 WBC (Bld) 66.1 % 38.0 - 82.0 % [facility] Nucleated RBC/100 WBC (Bld) [Ratio] 0 % [facility] Platelet mean volume (Bld) [Entitic vol] 9.8 fL 9.0 - 12.7 fL [facility] Platelets (Bld) [#/Vol] 301 10*3/uL 140 - 440 10*3/uL [facility] RBC (Bld) [#/Vol] 3.52 10*6/uL Low 3.80 - 5.2 0 10*6/uL [facility] WBC (Bld) [#/Vol] 5.6 10*3/uL 3.6 - 10.7 10*3/uL [facility] CBC WITH AUTO DIFFERENTIALon 07-07-2024 Basophils (Bld) [#/Vol] 0.0 10*3/uL Normal 0.0-0.2 [facility] Comment on above: Performed By: #### L [id number] ####Patient Services Technician: VELMA VALADEZ ([phone])[address] Basophils/100 WBC (Bld) 0.4 % Normal 0.0-2.0 [facility] Comment on above: Performed By: #### L [id number] ####Patient Services Technician: VELMA [phone])[facility])[address] [place] [address] Eosinophils (Bld) [#/Vol] 0.1 10*3/uL Normal 0.0-0.5 [facility] Comment on above: Performed By: #### L [id number] ####Patient Services Technician: VELMA VALADEZ ([phone])[facility])[address] [place] [address] Eosinophils/100 WBC (Bld) 1.3 % Normal 0.0-6.0 [facility] Comment on above: Performed By: #### L [id number] ####Patient Services Technician: VELMA VALADEZ ([phone])[address] Erythrocyte distribution width (RBC) [Ratio] 17.6 % High 11.5-15.0 [facility] Comment on above: Performed By: #### L [id number] ####Patient Services Technician: VELMA VALADEZ ([phone])[facility])[address] [place] [address] Hematocrit (Bld) [Volume fraction] 29.9 % Low 35.0-47.0 [facility] Comment on above: Performed By: #### L [id number] ####Patient Services Technician: VELMA VALADEZ ([phone])[address] Hemoglobin (Bld) [Mass/Vol] 9.1 g/dL Low 11.7-16.0 [facility] Comment on above: Performed By: #### L [id number] ####Patient Services Technician: VELMA VALADEZ ([phone])[facility])[address] [place] [address] IMMATURE GRANS % 0.2 % Normal 0.0-2.0 [facility] Comment on above: Performed By: #### L [id number] ####Patient Services Technician: VELMA VALADEZ ([phone])[address] IMMATURE GRANS ABSOLUTE 0.0 10*3/uL Normal <0.1 [facility] Comment on above: Performed By: #### L [id number] ####Patient Services Technician: VELMA VALADEZ ([phone])[facility])[address] [place] [address] Lymphocytes (Bld) [#/Vol] 1.2 10*3/uL Normal 1.0-4.3 [facility] Comment on above: Performed By: #### L [id number] ####Patient Services Technician: VELMA VALADEZ ([phone])[facility])[address] [place] [address] Lymphocytes/100 WBC (Bld) 22.0 % Normal 15.0-45.0 [facility] Comment on above: Performed By: #### L [id number] ####Patient Services Technician: VELMA VALADEZ ([phone])[facility])[address] [place] [address] MCH (RBC) [Entitic mass] 25.9 pg Low 26.0-34.0 [facility] Comment on above: Performed By: #### L [id number] ####Patient Services Technician: VELMA VALADEZ ([phone])[facility])[address] [place] [address] MCHC 30.4 % Low 30.5-36.0 [facility] Comment on above: Performed By: #### L [id number] ####Patient Services Technician: VELMA VALADEZ ([phone])[facility])[address] [place] [address] MCV (RBC) [Entitic vol] 84.9 fL Normal 77.0-99.0 [facility] Comment on above: Performed By: #### L [id number] ####Patient Services Technician: VELMA VALADEZ ([phone])[facility])[address] [place] [address] Monocytes (Bld) [#/Vol] 0.6 10*3/uL Normal 0.0-0.9 [facility] Comment on above: Performed By: #### L [id number] ####Patient Services Technician: VELMA VALADEZ ([phone])[facility] ([facility])[address] [place] [address] Monocytes/100 WBC (Bld) 10.0 % Normal 5.0-13.0 [facility] Comment on above: Performed By: #### L [id number] ####Patient Services Technician: VELMA VALADEZ ([phone])[facility] ([facility])[address] [place] [address] NEUTROPHILS ABSOLUTE 3.7 10*3/uL Normal 1.8-7.5 [facility] Comment on above: Performed By: #### L [id number] ####Patient Services Technician: VELMA VALADEZ ([phone])[facility] ([facility])[address] [place] [address] Neutrophils/100 WBC (Bld) 66.1 % Normal 38.0-82.0 [facility] Comment on above: Performed By: #### L [id number] ####Patient Services Technician: VELMA VALADEZ ([phone])[facility] ([facility])[address] [place] [address] NRBC 0.0 /100 WBCs Normal 0.0-2.0 [facility] Comment on above: Performed By: #### L [id number] ####Patient Services Technician: VELMA VALADEZ ([phone])[facility] ([facility])[address] [place] [address] Platelet mean volume (Bld) [Entitic vol] 9.8 fL Normal 9.0-12.7 [facility] Comment on above: Performed By: #### L [id number] ####Patient Services Technician: VELMA VALADEZ ([phone])[facility] ([facility])[address] [place] [address] Platelets (Bld) [#/Vol] 301 10*3/uL Normal 140-440 [facility] Comment on above: Performed By: #### L [id number] ####Patient Services Technician: VELMA [phone])[facility] ([facility])[address] [place] [address] RBC (Bld) [#/Vol] 3.52 10*6/uL Low 3.80-5.20 [facility] Comment on above: Performed By: #### L [id number] ####Patient Services Technician: VELMA VALADEZ ([phone])[facility] ([facility])[address] [place] [address] WBC (Bld) [#/Vol] 5.6 10*3/uL Normal 3.6-10.7 [facility] Comment on above: Performed By: #### L [id number] ####Patient Services Technician: VELMA VALADEZ ([phone])[facility] ([facility])[address] [place] [address] CBC panel Auto (Bld)on 07-07 Erythrocyte distribution width (RBC) [Ratio] 17.5 % High 11.5-15.0 [facility] Comment on above: Order Comment: Speci men Type: BLOOD SPECIMEN Ordering Facility: [facility] Address: [address] [place] [address] Performed By: #### 2 4362-6 #### [facility] CLIA [id number] [address] [place] [address] [place] Hematocrit (Bld) [Volume fraction] 32.7 % Low 36.0-46.0 [facility] Comment on above: Order Comment: Speci men Type: BLOOD SPECIMEN Ordering Facility: [facility] Address: [address] [place] [address] Performed By: #### 2 4362-6 #### [facility] CLIA [id number] [address] [place] [address] [place] Hemoglobin (Bld) [Mass/Vol] 10.2 g/dL Low 11.5-15.5 [facility] Comment on above: Order Comment: Speci men Type: BLOOD SPECIMEN Ordering Facility: [facility] Address: [address] [place] [address] Performed By: #### 2 4362-6 #### [facility] CLIA [id number] [address] [place] [address] [place] MCH (RBC) [Entitic mass] 26.8 pg Normal 26.0-34.0 [facility] Comment on above: Order Comment: Speci men Type: BLOOD SPECIMEN Ordering Facility: [facility] Address: [address] [place] [address] Performed By: #### 2 4362-6 #### [facility] CLIA [id number] [address] [place] [address] [place] MCHC (RBC) [Mass/Vol] 31.2 g/dL Normal 30.5-36.0 [facility] Comment on above: Order Comment: Speci men Type: BLOOD SPECIMEN Ordering Facility: [facility] Address: [address] [place] [address] Performed By: #### 2 4362-6 #### [facility] CLIA [id number] [address] [place] [address] [place] MCV (RBC) [Entitic vol] 86.1 fL Normal 80.0-100.0 [facility] Comment on above: Order Comment: Speci men Type: BLOOD SPECIMEN Ordering Facility: [facility] Address: [address] [place] [address] Performed By: #### 2 4362-6 #### [facility] CLIA [id number] [address] [place] [address] [place] Nucleated RBC (Bld) [#/Vol] 10*3/uL Normal <0.01 [facility] Comment on above: Order Comment: Speci men Type: BLOOD SPECIMEN Ordering Facility: [facility] Address: [address] [place] [address] Performed By: #### 2 4362-6 #### [facility] CLIA [id number] [address] [place] [address] [place] Platelet mean volume (Bld) [Entitic vol] 9.8 fL Normal 9.0-12.7 [facility] Comment on above: Order Comment: Speci men Type: BLOOD SPECIMEN Ordering Facility: [facility] Address: [address] [place] [address] Performed By: #### 2 4362-6 #### [facility] CLIA [id number] [address] [place] [address] [place] Platelets (Bld) [#/Vol] 284 10*3/uL Normal 150-400 [facility] Comment on above: Order Comment: Speci men Type: BLOOD SPECIMEN Ordering Facility: [facility] Address: [address] [place] [address] Performed By: #### 2 4362-6 #### [facility] CLIA [id number] [address] [place] [address] [place] RBC (Bld) [#/Vol] 3.80 10*6/uL Low 3.90-5.20 [facility] Comment on above: Order Comment: Speci men Type: BLOOD SPECIMEN Ordering Facility: [facility] Address: [address] [place] [address] Performed By: #### 2 4362-6 #### [facility] CLIA [id number] [address] [place] [address] [place] WBC (Bld) [#/Vol] 5.72 10*3/uL Normal 3.70-11.00 [facility] Comment on above: Order Comment: Speci men Type: BLOOD SPECIMEN Ordering Facility: [facility] Address: [address] [place] [address] Performed By: #### 2 4362-6 #### [facility] CLIA [id number] [address] [place] [address] [place] ORBITS WO IVCONon 024 CT ORBITS WO IVCON * * *Final Report* * * DATE OF EXAM: Jul 07 2024 8:21PM [facility] [place] [facility] [place]BITS WO IVCON / [...] changes. Unchanged appearance of left globe/phthisis bulbi. Dynamite Reclaimer: PSCB Transcribe Date/Time: Jul 07 2024 8:24P Dictated by : ULICES LEBLANC MD This examination was interpreted and the report reviewed and electronically signed by: DE JAIN MD on Jul 07 2024 9:18PM EST [id number] Normal [facility] HISTORY PHYSICALon HISTORY PHYSICAL HNO ID: [id number] Author: FELICIA LEVY MD Service: General Internal [...] 3pm to 7am): Please page on-call resident [phone] Chaudhry (Tucker) Subjective CHIEF COMPLAINT: Acute angle closure glaucoma HPI: Mel Castillo is a 83 year old female with a PMH of COPD, HTN, Afib (on Lovenox), CKD Stage 3, L retinal detachment, recurrent embolic events, and 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 She was subsequently taken by the tool and gauge inspector for peripheral iridotomy's, which helped to reduce elevated intraocular pressure down to 10.2 mmHg in the R eye. Furthermore, was evaluated by stroke team at [facility] who reviewed her images and believed her headache and severe vision loss was secondary to the acute closure glaucoma and not stroke. Ultimately, it was determined that due to vision now being reduced to only one eye she required retinal specialist at [place] for repair of acute retinal detachment on [...] of breath., Disp: , Rfl: , 07/06/2024 cfsvzlfsgnu-pswqojdyf-d ilanter (TRELEGY ELLIPTA) 100-62.5-25 mcg inhalation powder, Inhale 1 (more content not included)... Normal [facility] NURSING PROGon 07-07-2024 NURSING PROG HNO ID: [id number] Author: SONNY CASTILLO RN Service: Nursing Author [...] notify nurse if she experiences pain. Normal [facility] NURSING PROG HNO ID: [id number] Author: WINIFRED HILLS RN Service: ? Author Type: Registered Nurse Type: Nursing Progress Note Filed: 07/07/2024 12:15 Note Text: Transfer Note: PATIENT NAME: Mel Castillo Patient Location: [place] [address]/H060-31 Room: H060-31 Patient transferred into room/unit H60-31 in stable condition. Actions taken: Team notified. Patient belongings with patient. Pt oriented to the floor policy and fall prevention protocol. Call light within reach. Normal [facility] Nursing Noteon 07-07-2024 Nursing Note Report called to [facility]. Normal [facility] Progress Noteon 07-07-2024 Progress Note Nutrition rescreen completed. Chart reviewed. Patient to be monitored and followed by the diet optics test technician. Normal [facility] Renal function 2000 panelon 07-07-2024 Albumin [Mass/Vol] 3.7 g/dL Low 3.9-4.9 [facility] Comment on above: Order Comment: Speci men Type: BLOOD SPECIMEN Ordering Facility: [facility] Address: [address] [place] [address] Performed By: #### 2 4362-6 #### [facility] CLIA [id number] [address] [place] [address] [place] Anion gap [Moles/Vol] 12 mmol/L Normal 8-15 [facility] Comment on above: Order Comment: Speci men Type: BLOOD SPECIMEN Ordering Facility: [facility] Address: [address] [place] [address] Performed By: #### 2 4362-6 #### [facility] CLIA [id number] [address] [place] [address] [place] Calcium [Mass/Vol] 9.2 mg/dL Normal 8.5-10.2 [facility] Comment on above: Order Comment: Speci men Type: BLOOD SPECIMEN Ordering Facility: [facility] Address: [address] [place] [address] Performed By: #### 2 4362-6 #### [facility] CLIA [id number] [address] [id number] [address] [place] Chloride [Moles/Vol] 107 mmol/L Normal 98-107 [facility] Comment on above: Order Comment: Speci men Type: BLOOD SPECIMEN Ordering Facility: [facility] Address: [address] [place] [address] Performed By: #### 2 4362-6 #### [facility] CLIA [id number] [address] [place] [address] [place] CO2 [Moles/Vol] 20 mmol/L Low 22-30 [facility] Comment on above: Order Comment: Speci men Type: BLOOD SPECIMEN Ordering Facility: [facility] Address: [address] [place] [address] Performed By: #### 2 4362-6 #### [facility] CLIA [id number] [address] [place] [address] [place] Creatinine [Mass/Vol] 0.82 mg/dL Normal 0.58-0.96 [facility] Comment on above: Order Comment: Speci men Type: BLOOD SPECIMEN Ordering Facility: [facility] Address: [address] [place] [address] Performed By: #### 2 4362-6 #### [facility] CLIA [id number] [address] [place] [address] [place] Creatinine and Glomerular filtration rate.predicted panel (S/P/Bld) 71 mL/min/1.73m??? Normal >=60 [facility] Comment on above: Order Comment: Speci men Type: BLOOD SPECIMEN Ordering Facility: [facility] Address: [address] [place] [address] Result Comment: Isa mated Glomerular Filtration Rate [...] GFR. Performed By: #### 2 4362-6 #### [facility] CLIA [id number] [address] [place] [address] [place] Glucose [Mass/Vol] 106 mg/dL High 74-99 [facility] Comment on above: Order Comment: Speci men Type: BLOOD SPECIMEN Ordering Facility: [facility] Address: [address] [place] [address] Result Comment: The [place] [employer] (ADA) provides guidance for cutoff [...] Standards of [facility] 2016, [employer] [employer]. Diabetes Care. 2016.39(Suppl 1). Performed By: #### 2 4362-6 #### [facility] CLIA [id number] [address] [place] [address] [place] Phosphate [Mass/Vol] 3.0 mg/dL Normal 2.7-4.8 [facility] Comment on above: Order Comment: Speci men Type: BLOOD SPECIMEN Ordering Facility: [facility] Address: [address] [place] [address] Performed By: #### 2 4362-6 #### [facility] CLIA [id number] [address] [place] [address] [place] Potassium [Moles/Vol] 4.3 mmol/L Normal 3.7-5.1 [facility] Comment on above: Order Comment: Speci men Type: BLOOD SPECIMEN Ordering Facility: [facility] Address: [address] [place], [place] [id number] Performed By: #### 2 4362-6 #### [facility] CLIA [id number] [address] [place] [address] [place] Sodium [Moles/Vol] 139 mmol/L Normal 136-144 [facility] Comment on above: Order Comment: Speci men Type: BLOOD SPECIMEN Ordering Facility: [facility] Address: [address] [place] [address] Performed By: #### 2 4362-6 #### [facility] CLIA [id number] [address] [place] [address] [place] Urea nitrogen [Mass/Vol] 16 mg/dL Normal 7-21 [facility] Comment on above: Order Comment: Speci men Type: BLOOD SPECIMEN Ordering Facility: [facility] Address: [address] [place] [address] Performed By: #### 2 4362-6 #### [facility] CLIA [id number] [address] [place] [address] [place] [id number] 07-06-2023 [id number] Normal [facility] BASIC METABOLIC PANELon 06-18-2023 Anion gap [Moles/Vol] 9 mmol/L Normal 3-13 [facility] Comment on above: Performed By: #### L AB15 ####Patient Services Technician: VELMA VALADEZ ([phone])[address] Calcium [Mass/Vol] 8.9 mg/dL Normal 8.8-10.0 [facility] Comment on above: Performed By: #### L AB15 ####Patient Services Technician: VELMA VALADEZ ([phone])[facility] ([facility])[address] [place] [address] Chloride [Moles/Vol] 113 mmol/L High 98-107 [facility] Comment on above: Performed By: #### L AB15 ####Patient Services Technician: VELMA VALADEZ ([phone])[facility] ([facility])[address] [place] [address] CO2 [Moles/Vol] 18 mmol/L Low 23-31 [facility] Comment on above: Performed By: #### L AB15 ####Patient Services Technician: VELMA VALADEZ ([phone])[facility])[address] [place] [address] Creatinine [Mass/Vol] 0.86 mg/dL Normal 0.57-1.11 [facility] Comment on above: Performed By: #### L AB15 ####Patient Services Technician: VELMA VALADEZ ([phone])[facility] ([facility])[address] [place] [address] [place] GLOMERULAR FILTRATION RATE ML/MIN/1.73 SQ M.PREDICTED 66.7 mL/min/1.73m*2 Normal >60.0 [facility] Comment on above: Result Comment: Calc ulation based on the Chronic Kidney Disease Epidemiology Collaboration (CKD-EPI) equation refit without adjustment for race Performed By: #### L AB15 ####Patient Services Technician: VELMA VALADEZ ([phone])[facility] ([facility])[address] [place] [address] [place] Glucose [Mass/Vol] 74 mg/dL Low 82-115 [facility] Comment on above: Performed By: #### L AB15 ####Patient Services Technician: VELMA VALADEZ ([phone])[facility])[address] [place] [address] [place] Potassium [Moles/Vol] 4.5 mmol/L Normal 3.5-5.1 [facility] Comment on above: Result Comment: [facility] potassium values may be up to 0.5 mmol/L lower than serum values. Performed By: #### L AB15 ####Patient Services Technician: VELMA VALADEZ ([phone])[facility] ([facility])[address] [place] [address] [place] Sodium [Moles/Vol] 140 mmol/L Normal 136-145 [facility] Comment on above: Performed By: #### L AB15 ####Patient Services Technician: VELMA VALADEZ ([phone])[facility])[address] [place] [address] [place] Urea nitrogen [Mass/Vol] 16 mg/dL Normal 9-23 [facility] Comment on above: Performed By: #### L AB15 ####Patient Services Technician: VELMA VALADEZ ([phone])[facility] ([facility])[address] Basic metabolic 1998 panelon 07-06-2024 Anion gap [Moles/Vol] 9 mmol/L 3 - 13 mmol/L [facility] Calcium [Mass/Vol] 8.9 mg/dL 8.8 - 10. 0 mg/dL [facility] Chloride [Moles/Vol] 113 mmol/L High 98 - 10 7 mmol/L [facility] CO2 [Moles/Vol] 18 mmol/L Low 23 - 31 mmol/L [facility] Creatinine [Mass/Vol] 0.86 mg/dL 0.57 - 1.11 mg/dL [facility] GFR/1.73 sq M.predicted (S/P/Bld) [Vol rate/Area] 66.7 mL/min - PINF [facility] Comment on above: Calculation based on the Chronic Kidney Disease Epidemiology Collaboration (CKD-EPI) equation refit without adjustment for race Glucose [Mass/Vol] 74 mg/dL Low 82 - 115 mg/dL [facility] Interpretation and review of laboratory results Abnormal [facility] Potassium [Moles/Vol] 4.5 mmol/L 3.5 - 5.1 mmol/L [facility] Comment on above: Plasma potassium chris ues may be up to 0.5 mmol/L lower than serum values. Sodium [Moles/Vol] 140 mmol/L 136 - 145 mmol/L [facility] Urea nitrogen [Mass/Vol] 16 mg/dL 9 - 23 mg/dL [facility] CBC W Auto Differential pane l (Bld)Ordered By: Daija Doran on 07-06-2024 Basophils (Bld) [#/Vol] 0 10*3/uL 0.0 - 0.2 10*3/uL [facility] Basophils/100 WBC (Bld) 0.5 % 0.0 - 2.0 % [facility] Eosinophils (Bld) [#/Vol] 0 10*3/uL 0.0 - 0.5 10*3/uL [facility] Eosinophils/100 WBC (Bld) 0.3 % 0.0 - 6.0 % [facility] Erythrocyte distribution width (RBC) [Ratio] 17.8 % High 11.5 - 15.0 % [facility] Hematocrit (Bld) [Volume fraction] 31.8 % Low 35.0 - 47.0 % [facility] Hemoglobin (Bld) [Mass/Vol] 9.7 g/dL Low 11.7 - 16.0 g/dL [facility] Immature granulocytes (Bld) [#/Vol] 0 10*3/uL NINF - 0.1 10*3/uL [facility] Immature granulocytes/100 WBC (Bld) 0.3 % 0.0 - 2.0 % [facility] Interpretation and review of laboratory results Abnormal [facility] Lymphocytes (Bld) [#/Vol] 1.2 10*3/uL 1.0 - 4.3 10*3/uL [facility] Lymphocytes/100 WBC (Bld) 18.9 % 15.0 - 45.0 % [facility] MCH (RBC) [Entitic mass] 26.4 pg 26.0 - 34.0 pg [facility] MCHC (RBC) [Mass/Vol] 30.5 % 30.5 - 36.0 % [facility] MCV (RBC) [Entitic vol] 86.4 fL 77.0 - 99.0 fL [facility] Monocytes (Bld) [#/Vol] 0.5 10*3/uL 0.0 - 0.9 10*3/uL [facility] Monocytes/100 WBC (Bld) 8.2 % 5.0 - 13.0 % [facility] Neutrophils (Bld) [#/Vol] 4.4 10*3/uL 1.8 - 7.5 10*3/uL [facility] Neutrophils/100 WBC (Bld) 71.8 % 38.0 - 82.0 % [facility] Nucleated RBC/100 WBC (Bld) [Ratio] 0 % [facility] Platelet mean volume (Bld) [Entitic vol] 10.9 fL 9.0 - 12.7 fL [facility] Platelets (Bld) [#/Vol] 278 10*3/uL 140 - 440 10*3/uL [facility] RBC (Bld) [#/Vol] 3.68 10*6/uL Low 3.80 - 5.2 0 10*6/uL [facility] WBC (Bld) [#/Vol] 6.1 10*3/uL 3.6 - 10.7 10*3/uL [facility] CBC WITH AUTO DIFFERENTIALon 07-06-2024 Basophils (Bld) [#/Vol] 0.0 10*3/uL Normal 0.0-0.2 [facility] Comment on above: Performed By: #### L [id number] ####Patient Services Technician: VELMA VALADEZ ([phone])[facility] ([facility])[address] [place] [address] Basophils/100 WBC (Bld) 0.5 % Normal 0.0-2.0 [facility] Comment on above: Performed By: #### L [id number] ####Patient Services Technician: VELMA VALADEZ ([phone])[facility])[address] [place] [address] Eosinophils (Bld) [#/Vol] 0.0 10*3/uL Normal 0.0-0.5 [facility] Comment on above: Performed By: #### L [id number] ####Patient Services Technician: VELMA VALADEZ ([phone])[facility])[address] [place] [address] Eosinophils/100 WBC (Bld) 0.3 % Normal 0.0-6.0 [facility] Comment on above: Performed By: #### L [id number] ####Patient Services Technician: VELMA VALADEZ ([phone])[facility])[address] [place] [address] Erythrocyte distribution width (RBC) [Ratio] 17.8 % High 11.5-15.0 [facility] Comment on above: Performed By: #### L [id number] ####Patient Services Technician: VELMA VALADEZ ([phone])[facility])[address] [place] [address] Hematocrit (Bld) [Volume fraction] 31.8 % Low 35.0-47.0 [facility] Comment on above: Performed By: #### L [id number] ####Patient Services Technician: VELMA VALADEZ ([phone])[facility])[address] [place] [address] Hemoglobin (Bld) [Mass/Vol] 9.7 g/dL Low 11.7-16.0 [facility] Comment on above: Performed By: #### L [id number] ####Patient Services Technician: VELMA VALADEZ ([phone])[facility])[address] [place] [address] IMMATURE GRANS % 0.3 % Normal 0.0-2.0 [facility] Comment on above: Performed By: #### L [id number] ####Patient Services Technician: VELMA VALADEZ ([phone])[address] IMMATURE GRANS ABSOLUTE 0.0 10*3/uL Normal <0.1 [facility] Comment on above: Performed By: #### L [id number] ####Patient Services Technician: VELMA VALADEZ ([phone])[facility])[address] [place] [address] Lymphocytes (Bld) [#/Vol] 1.2 10*3/uL Normal 1.0-4.3 [facility] Comment on above: Performed By: #### L [id number] ####Patient Services Technician: VELMA VALADEZ ([phone])[facility])[address] [place] [address] Lymphocytes/100 WBC (Bld) 18.9 % Normal 15.0-45.0 [facility] Comment on above: Performed By: #### L [id number] ####Patient Services Technician: VELMA VALADEZ ([phone])[facility])[address] [place] [address] MCH (RBC) [Entitic mass] 26.4 pg Normal 26.0-34.0 [facility] Comment on above: Performed By: #### L [id number] ####Patient Services Technician: VELMA VALADEZ ([phone])[facility])[address] [place] [address] MCHC 30.5 % Normal 30.5-36.0 [facility] Comment on above: Performed By: #### L [id number] ####Patient Services Technician: VELMA VALADEZ ([phone])[facility])[address] [place] [address] MCV (RBC) [Entitic vol] 86.4 fL Normal 77.0-99.0 [facility] Comment on above: Performed By: #### L [id number] ####Patient Services Technician: VELMA VALADEZ ([phone])[facility])[address] [place] [address] Monocytes (Bld) [#/Vol] 0.5 10*3/uL Normal 0.0-0.9 [facility] Comment on above: Performed By: #### L [id number] ####Patient Services Technician: VELMA VALADEZ ([phone])[facility] ([facility])[address] [place] [address] Monocytes/100 WBC (Bld) 8.2 % Normal 5.0-13.0 [facility] Comment on above: Performed By: #### L [id number] ####Patient Services Technician: VELMA VALADEZ ([phone])[facility])[address] [place] [address] NEUTROPHILS ABSOLUTE 4.4 10*3/uL Normal 1.8-7.5 [facility] Comment on above: Performed By: #### L [id number] ####Patient Services Technician: VELMA VALADEZ ([phone])[facility])[address] [place] [address] Neutrophils/100 WBC (Bld) 71.8 % Normal 38.0-82.0 [facility] Comment on above: Performed By: #### L [id number] ####Patient Services Technician: VELMA VALADEZ ([phone])[facility])[address] [place] [address] NRBC 0.0 /100 WBCs Normal 0.0-2.0 [facility] Comment on above: Performed By: #### L [id number] ####Patient Services Technician: VELMA VALADEZ ([phone])[facility])[address] [place] [address] Platelet mean volume (Bld) [Entitic vol] 10.9 fL Normal 9.0-12.7 [facility] Comment on above: Performed By: #### L [id number] ####Patient Services Technician: VELMA VALADEZ ([phone])[facility] ([facility])[address] [place] [address] Platelets (Bld) [#/Vol] 278 10*3/uL Normal 140-440 [facility] Comment on above: Performed By: #### L [id number] ####Patient Services Technician: VELMA VALADEZ ([phone])[facility])[address] [place] [address] RBC (Bld) [#/Vol] 3.68 10*6/uL Low 3.80-5.20 [facility] Comment on above: Performed By: #### L [id number] ####Patient Services Technician: VELMA VALADEZ ([phone])[facility])[address] [place] [address] WBC (Bld) [#/Vol] 6.1 10*3/uL Normal 3.6-10.7 [facility] Comment on above: Performed By: #### L [id number] ####Patient Services Technician: VELMA VALADEZ ([phone])[facility] ([facility])[address] [place] [address] [facility]AD[facility] ([id number]) 1940 F T Date Time Provider Department 07/06/24 [facility] During your visit today, we recorded the following information about you: Ryan Elizondo MD 07/06/2024 2:42 PM Signed TELEPHONE ENCOUNTER 07/06/2024 Patient with recent stroke and admitted to [facility] where she was noted to have elevated IOP with retinal detachment of the right eye 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 - jzcpbeylzxw-rexveqird-o ilanter (TRELEGY ELLIPTA) 100-62.5-25 mcg inhalation powder [...] Status:Closed by RYAN ELIZONDO on 07/06/24 Normal [facility] 07-06-2024 Consult Normal [facility] Nursing Noteon 07-06-2024 Nursing Note This RN called Protective Services to try and locate pts lost glasses from 07/05/2024. Glasses that match the description are in lost and found. Will attempt to see if glasses are a match. Normal [facility] Progress Noteon 07-06-2024 Progress Note Normal [facility] Progress Note Normal [facility] CBC (HEMOGRAM)on 07-05-2024 Erythrocyte distribution width (RBC) [Ratio] 17.2 % High 11.5-15.0 [facility] Comment on above: Performed By: #### L [id number] ####Patient Services Technician: VELMA VALADEZ ([phone])[facility])[address] [place] [address] Hematocrit (Bld) [Volume fraction] 32.8 % Low 35.0-47.0 [facility] Comment on above: Performed By: #### L [id number] ####Patient Services Technician: VELMA VALADEZ ([phone])[facility])[address] [place] [address] Hemoglobin (Bld) [Mass/Vol] 10.6 g/dL Low 11.7-16.0 [facility] Comment on above: Performed By: #### L [id number] ####Patient Services Technician: VELMA VALADEZ ([phone])[facility] ([facility])[address] [place] [address] MCH (RBC) [Entitic mass] 26.4 pg Normal 26.0-34.0 [facility] Comment on above: Performed By: #### L [id number] ####Patient Services Technician: VELMA VALADEZ ([phone])[facility])[address] [place] [address] MCHC 32.3 % Normal 30.5-36.0 [facility] Comment on above: Performed By: #### L [id number] ####Patient Services Technician: VELMA VALADEZ ([phone])[facility] ([facility])[address] [place] [address] MCV (RBC) [Entitic vol] 81.8 fL Normal 77.0-99.0 [facility] Comment on above: Performed By: #### L [id number] ####Patient Services Technician: VELMA VALADEZ ([phone])[facility])[address] [place] [address] Platelet mean volume (Bld) [Entitic vol] 9.6 fL Normal 9.0-12.7 [facility] Comment on above: Performed By: #### L [id number] ####Patient Services Technician: VELMA VALADEZ ([phone])[facility] ([facility])[address] [place] [address] Platelets (Bld) [#/Vol] 349 10*3/uL Normal 140-440 [facility] Comment on above: Performed By: #### L [id number] ####Patient Services Technician: VELMA VALADEZ ([phone])[facility] ([facility])[address] [place] [address] RBC (Bld) [#/Vol] 4.01 10*6/uL Normal 3.80-5.20 [facility] Comment on above: Performed By: #### L [id number] ####Patient Services Technician: VELMA VALADEZ ([phone])[facility] ([facility])[address] [place] [address] WBC (Bld) [#/Vol] 5.5 10*3/uL Normal 3.6-10.7 [facility] Comment on above: Performed By: #### L [id number] ####Patient Services Technician: VELMA VALADEZ ([phone])[facility] ([facility])[address] [place] [address] CBC panel Auto (Bld)on 07-05 Erythrocyte distribution width (RBC) [Ratio] 17.2 % High 11.5 - 15.0 % [facility] Hematocrit (Bld) [Volume fraction] 32.8 % Low 35.0 - 47.0 % [facility] Hemoglobin (Bld) [Mass/Vol] 10.6 g/dL Low 11.7 - 16.0 g/dL [facility] Interpretation and review of laboratory results Abnormal [facility] MCH (RBC) [Entitic mass] 26.4 pg 26.0 - 34.0 pg [facility] MCHC (RBC) [Mass/Vol] 32.3 % 30.5 - 36.0 % [facility] MCV (RBC) [Entitic vol] 81.8 fL 77.0 - 99.0 fL [facility] Platelet mean volume (Bld) [Entitic vol] 9.6 fL 9.0 - 12.7 fL [facility] Platelets (Bld) [#/Vol] 349 10*3/uL 140 - 440 10*3/uL [facility] RBC (Bld) [#/Vol] 4.01 10*6/uL 3.80 - 5.2 0 10*6/uL [facility] WBC (Bld) [#/Vol] 5.5 10*3/uL 3.6 - 10.7 10*3/uL [facility] COMPREHENSIVE METABOLIC PANE [facility] 07-05-2024 Albumin [Mass/Vol] 3.6 g/dL Normal 3.4-4.8 [facility] Comment on above: Performed By: #### L [id number], [id number] ####Patient Services Technician: VELMA VALADEZ ([phone])[facility] ([facility])[address] [place] [address] ALP [Catalytic activity/Vol] 94 U/L Normal 40-150 [facility] Comment on above: Performed By: #### L [id number], LAB17 ####Patient Services Technician: VELMA VALADEZ ([phone])[facility] ([facility])[address] [place] [address] ALT [Catalytic activity/Vol] 23 U/L Normal <30 [facility] Comment on above: Performed By: #### L [id number], LAB17 ####Patient Services Technician: VELMA VALADEZ ([phone])[facility] ([facility])[address] [place] [address] Anion gap [Moles/Vol] 10 mmol/L Normal 3-13 [facility] Comment on above: Performed By: #### L [id number], [id number] ####Patient Services Technician: VELMA VALADEZ ([phone])[facility] ([facility])[address] [place] [address] AST [Catalytic activity/Vol] 26 U/L Normal <34 [facility] Comment on above: Performed By: #### L [id number], LAB17 ####Patient Services Technician: VELMA VALADEZ ([phone])[facility] [place] [address] Bilirubin [Mass/Vol] 0.7 mg/dL Normal <1.2 [facility] Comment on above: Performed By: #### L [id number], LAB17 ####Patient Services Technician: VELMA VALADEZ ([phone])[facility] ([facility])[address] [place] [address] Calcium [Mass/Vol] 9.2 mg/dL Normal 8.8-10.0 [facility] Comment on above: Performed By: #### L [id number], LAB17 ####Patient Services Technician: VELMA VALADEZ ([phone])[facility] ([facility])[address] [place] [address] Chloride [Moles/Vol] 107 mmol/L Normal 98-107 [facility] Comment on above: Performed By: #### L [id number], LAB17 ####Patient Services Technician: VELMA VALADEZ ([phone])[facility] ([facility])[address] [place] [address] CO2 [Moles/Vol] 22 mmol/L Low 23-31 [facility] Comment on above: Performed By: #### L [id number], LAB17 ####Patient Services Technician: VELMA VALADEZ ([phone])[facility] ([facility])[address] [place] [address] Creatinine [Mass/Vol] 0.82 mg/dL Normal 0.57-1.11 [facility] Comment on above: Performed By: #### L [id number], LAB17 ####Patient Services Technician: VELMA VALADEZ ([phone])[facility] ([facility])[address] [place] [address] [place] GLOMERULAR FILTRATION RATE ML/MIN/1.73 SQ M.PREDICTED 70.6 mL/min/1.73m*2 Normal >60.0 [facility] Comment on above: Result Comment: Calc ulation based on the Chronic Kidney Disease Epidemiology Collaboration (CKD-EPI) equation refit without adjustment for race Performed By: #### L [id number], LAB17 ####Patient Services Technician: VELMA VALADEZ ([phone])[facility] ([facility])[address] [place] [address] Glucose [Mass/Vol] 118 mg/dL High 82-115 [facility] Comment on above: Performed By: #### L [id number], LAB17 ####Patient Services Technician: VELMA VALADEZ ([phone])[facility])[address] [place] [address] Potassium [Moles/Vol] 4.3 mmol/L Normal 3.5-5.1 [facility] Comment on above: Result Comment: [facility] potassium values may be up to 0.5 mmol/L lower than serum values. Performed By: #### L [id number], LAB17 ####Patient Services Technician: VELMA VALADEZ ([phone])[facility])[address] [place] [address] Protein [Mass/Vol] 7.0 g/dL Normal 6.4-8.3 [facility] Comment on above: Performed By: #### L [id number], LAB17 ####Patient Services Technician: VELMA VALADEZ ([phone])[facility] ([facility])[address] [place] [address] Sodium [Moles/Vol] 139 mmol/L Normal 136-145 [facility] Comment on above: Performed By: #### L [id number], [id number] ####Patient Services Technician: VELMA VALADEZ ([phone])[facility])[address] [place] [address] Urea nitrogen [Mass/Vol] 13 mg/dL Normal 9-23 [facility] Comment on above: Performed By: #### L [id number], [id number] ####Patient Services Technician: VELMA VALADEZ ([phone])[facility])[address] [place] [address] [place] [address] HEAD NECK ANGIO W AND WO IV CONTRASTon 07-05-2024 CT HEAD NECK ANGIO W AND WO IV CONTRAST Normal [facility] CT HEAD WO IV CONTRASTon CT HEAD WO IV CONTRAST Normal [facility] CT Head WO contraston 2023 Patient Name: MEL CARVER RD : 1940 [facility]#: [id number] Exam Date/Time: 07/05/2024 04:36 Procedure: CT HEAD [...] of the cervica (more content not included)... [facility] RADIOLOG[facility], Cirilo Khalil MD - 07/05/2024 Patient Name: MEL POP : 1940 [facility]#: [id number] Exam Date/Time: 07/05/2024 04:36 Procedure: CT HEAD [...] acute consolidative process (more content not included)... [facility] CT PERFUSIONon 07-05-2024 CT PERFUSION Normal [facility] System [facility] CTA Head vessels and Neck ve ssels WO and W contrast Cheryl 07-05-2024 Patient Name: MEL CARVER RD : 1940 [facility]#: [id number] Exam Date/Time: 07/05/2024 04:36 Procedure: CT HEAD [...] Multilevel degenerative chopra (more content not included)... [facility], Cirilo Khalil MD - 07/05/2024 Patient Name: MEL POP : 1940 [facility]#: [id number] Exam Date/Time: 07/05/2024 04:36 Procedure: CT HEAD [...] no acute conso (more content not included)... [facility] Comprehensive metabolic 1998 panelon 07-05-2024 Albumin [Mass/Vol] 3.6 g/dL 3.4 - 4.8 g/dL [facility] ALP [Catalytic activity/Vol] 94 U/L 40 - 150 U/L [facility] ALT [Catalytic activity/Vol] 23 U/L [facility] - 30 U/L [facility] Anion gap [Moles/Vol] 10 mmol/L 3 - 13 mmol/L [facility] AST [Catalytic activity/Vol] 26 U/L [facility] U/L [facility] Bilirubin [Mass/Vol] 0.7 mg/dL [facility] - 1.2 mg/dL [facility] Calcium [Mass/Vol] 9.2 mg/dL 8.8 - 10. 0 mg/dL [facility] Chloride [Moles/Vol] 107 mmol/L 98 - 10 7 mmol/L [facility] CO2 [Moles/Vol] 22 mmol/L Low 23 - 31 mmol/L [facility] Creatinine [Mass/Vol] 0.82 mg/dL 0.57 - 1.11 mg/dL [facility] GFR/1.73 sq M.predicted (S/P/Bld) [Vol rate/Area] 70.6 mL/min - PINF [facility] Comment on above: Calculation based on the Chronic Kidney Disease Epidemiology Collaboration (CKD-EPI) equation refit without adjustment for race Glucose [Mass/Vol] 118 mg/dL High 82 - 115 mg/dL [facility] Interpretation and review of laboratory results Abnormal [facility] Potassium [Moles/Vol] 4.3 mmol/L 3.5 - 5.1 mmol/L [facility] Comment on above: Plasma potassium chris ues may be up to 0.5 mmol/L lower than serum values. Protein [Mass/Vol] 7 g/dL 6.4 - 8.3 g/dL [facility] Sodium [Moles/Vol] 139 mmol/L 136 - 145 mmol/L [facility] Urea nitrogen [Mass/Vol] 13 mg/dL 9 - 23 mg/dL [facility] Consulton 07-05-2024 Consult Normal [facility] Consult [facility] Consult [facility] Consult Normal [facility] ECG 12-LEADon 07-05-2024 ECG 12-LEAD IMPRESSION: Atrial fibrillation Electronically Signed On 07-05-2024 12:39:21 EST by Jhonatan Hernandez [facility] ED Nursing Noteon 07-05-[address] Carlson at bedside. Normal [facility] ED Nursing Note Provider notified of patient request for pain meds. [facility] ED Nursing Note Dr. Carlson at bedside [facility] ED Nursing Note Patient is returning back to room 32 at this time with Jose, Medic. Normal [facility] ED Nursing Note Pt emergently going to eye clinic. Pt being transported in wheelchair with trauma martirat RADHA Hinkle and Maritza FRAGA Pt being transported on zoll monitor and acls kit. Normal [facility] ED Nursing Note Ophthalmology at bedside [facility] ED Nursing Note Report to Maritza FRAGA [facility] ED Provider Noteon ED Provider Note Normal [facility] HEMOGLOBIN A1Con 07-05-2024 Glucose [Mass/Vol] 120 mg/dL Normal [facility] Comment on above: Result Comment: ORDE R COMMENTS:HbA1c values of 5.7-6.4 percent indicate an increased risk for developing diabetes mellitus. HbA1c values greater than or equal to 6.5 percent are diagnostic of diabetes mellitus. For diagnosis of diabetes in individuals without unequivocal hyperglycemia, results should be confirmed by repeat testing. Performed By: #### L [id number] ####Patient Services Technician: VELMA VALADEZ ([phone])[facility] ([facility])[address] [place] [address] HEMOGLOBIN A1C 5.8 %HbA1C High <5.7 [facility] Comment on above: Result Comment: Norm al less than 5.7%Prediabetes 5.7% to 6.4%Diabetes 6.5% or higher--HgbA1C levels may not be accurate in patients who have renal disease, received recent blood transfusions, are anemic, or who have dyshemoglobinemia. Performed By: #### L [id number] ####Patient Services Technician: VELMA VALADEZ ([phone])[facility] ([facility])[address] [place] [address] HIGH SENSITIVITY TROPONIN, S ERIAL BASELINEon 07-05-2024 TROPONIN HIGH SENSITIVITY BASELINE 14 ng/L Normal <=14 [facility] Comment on above: Performed By: #### L [id number] ####Patient Services Technician: VELMA VALADEZ ([phone])[facility] ([facility])[address] [place] [address] HIGH SENSITIVITY TROPONIN, S ERIAL, SECOND TESTon 07-05-2024 TROPONIN HS DELTA, BASELINE TO SECOND -5 ng/L Normal <=2 [facility] Comment on above: Result Comment: This [...] further clinical guidance. Performed By: #### L [id number], [id number] ####Patient Services Technician: VELMA VALADEZ ([phone])[facility] ([facility])[address] [place] [address] TROPONIN HS, SERIAL REFLEX, TEST TWO 9 ng/L Normal <=14 [facility] Comment on above: Performed By: #### L [id number], [id number] ####Patient Services Technician: VELMA VALADEZ ([phone])[facility] ([facility])[address] Laboratory - Chemistry and C hemistry - challengeon 07-05-2024 Average glucose Estimated from glycated hemoglobin (Bld) [Mass/Vol] 120 mg/dL [facility] [employer] Anion gap (Bld) [Moles/Vol] 8 mmol/L 3.00 - 13.00 [facility] Calcium.ionized (Bld) [Moles/Vol] 4.5 mg/dl 4.30 - 5.20 mg/dl [facility] Comment on above: Performed by [employer] CLIA ID:[id number] [place], [place] Device: [id number] Warhead Maintenance Specialist ID: [id number] Chloride [Moles/Vol] 108 mmol/L 98 - 11 4 mmol/L [facility] [employer] CO2 [Moles/Vol] 23 mmol/L 21 - 29 mmol/L [facility] Creatinine [Mass/Vol] 0.9 mg/dL 0.6 - 1.3 mg/dL [facility] GFR/1.73 sq M.predicted CKD-EPI (S/P/Bld) [Vol rate/Area] 63.2 [facility] Comment on above: KDIGO guidelines pro vide [...] 104 mg/dL High 70 - 100 mg/dL [facility] Potassium [Moles/Vol] 4.5 mmol/L 3.4 - 5.1 mmol/L [facility] Sodium [Moles/Vol] 139 mmol/L 133 - 145 mmol/L [facility] Urea (Bld) [Mass/Vol] 14 mg/dL 4 - 22 mg/dL [facility] Glucose [Mass/Vol] 104 mg/dL High 70 - 100 mg/dL [facility] Laboratory - Coagulationon 1 09-05-2023 aPTT Coag (PPP) [Time] 30.4 s 20.0 - 30.5 s [facility] INR Coag (PPP) [Relative time] 1 {INR} 0.9 - 1.1 [facility] Comment on above: Recommended Anticoag ulant Therapy: [...] 11.7 s 9.0 - 1 2.0 s [facility] Laboratory - Hematology and Cell countson 07-05-2024 HbA1c (Bld) [Mass fraction] 5.8 % High NINF [facility] Comment on above: Normal less than 5.7 [...] MD Electronically Signed Date/Time: 07/05/2024 12:13 PM [facility] [employer] [facility] Patient Name: MEL CARVER RD : 1940 Exam Date/Time: 07/05/2024 11:45 Procedure: MR BRAIN WO CONTRAST Ordering Provider: NNUES VISHNU Reason For Exam: Headache, new or [...] There is artifact within the right globe. [facility] RADI[facility]Y SYSTEM Ming Fry MD - 07/05/2024 Patient Name: MEL POP : 1940 [facility]#: [id number] Exam Date/Time: 07/05/2024 11:45 Procedure: MR BRAIN [...] Electronically Signed Date/Time: 07/05/2024 12:13 PM EST [facility] Radiology Study observation (narrative) [facility] MR Brain WO contrastOrdered By: Ming Fry on 07-05-2024 [facility] Work Phone: No Panel Informationon 07-05 Heart Rate 59 bpm [facility] [employer] P [place] 0 degrees [facility] [employer] [place] Interval 0 ms [facility] [employer] QRS [place] 37 degrees [facility] [employer] QRSD Interval 98 ms [facility] Healt h QT Interval 423 ms [facility] QTC Interval 418 ms [facility] T Wave [place] 29 degrees [facility] Atrial fibrillation Electronically Signed On 07-05-2024 12:39:21 EST by Jhonatan Hernandez CV Jhonatan Abdi MD - 07/05/2024 IMPRESSION: Atrial fibrillation Electronically Signed On 07-05-2024 12:39:21 EST by Jhonatan Hernandez [facility] Interpretation and review of laboratory results Abnormal [facility] HbA1c values of 5.7- 6.4 percent indicate an increased risk for developing diabetes mellitus. HbA1c values greater than or equal to 6.5 percent are diagnostic of diabetes mellitus. For diagnosis of diabetes in individuals without unequivocal hyperglycemia, results should be confirmed by repeat testing. [facility] Troponin HS Delta, Baseline to Second -5 ng/L NINF - 2 ng/L [facility] Comment on above: This specimen was co [...] Second 9 ng/L NINF - 14 ng/L [facility] 1. No acute intracranial hemorrhage or territorial [...] Electronically Signed Date/Time: 07/05/2024 5:03 AM EST [facility] RADIOLOGY SYSTEM Patient Name: MEL CARVER RD : 1940 [facility]#: [id number] Exam Date/Time: 07/05/2024 04:36 Procedure: CT PERFUSION [...] the cervical spine. (more content not included)... [facility] RADIOLOGY SYSTEM Cory, Cirilo Khalil MD - 07/05/2024 Patient Name: MEL POP : 1940 [facility]#: [id number] Exam Date/Time: 07/05/2024 04:36 Procedure: CT PERFUSION [...] process or suspici (more content not included)... [facility] [employer] Interpretation and review of laboratory results Normal [facility] [employer] Troponin HS, Serial Baseline 14 ng/L NINF - 14 ng/L [facility] [employer] Interpretation and review of laboratory results Normal [facility] [employer] [facility] [employer] Interpretation and review of laboratory results Abnormal [facility] Performed by: [employer] [facility], [address] [place] [address] CLIA ID: [id number] [facility] [employer] [facility] [employer] Radiology Study observation (narrative) [facility] Interpretation and review of laboratory results Abnormal [facility] [employer] Performed by: [facility], [address] [place] [address] CLIA ID: [id number] [facility] [employer] No Panel InformationOrdered By: Cirilo Ray on 07-05-2024 [employer] [employer] Work Phone: PROTIME AND APTTon aPTT Coag (Bld) [Time] 30.4 s Normal 20.0-30.5 [facility] Comment on above: Performed By: #### L [id number] ####Patient Services Technician: VELMA VALADEZ ([phone])[facility] ([facility])[address] [place] [address] INR Coag (PPP) [Relative time] 1.0 {INR} Normal 0.9-1.1 [facility] [employer] [facility] Comment on above: Result Comment: Timothy [...] prevent Myocardial Infarction Performed By: #### L [id number] ####Patient Services Technician: VELMA VALADEZ ([phone])[facility] ([facility])[address] [place] [address] PT Coag (PPP) [Time] 11.7 s Normal 9.0-12.0 [facility] Comment on above: Performed By: #### L [id number] ####Patient Services Technician: VELMA VALADEZ ([phone])[facility] ([facility])[address] [place] [address] Progress Noteon 07-05-2024 Progress Note Normal [facility] CBC panel Auto (Bld)on 07-02 Erythrocyte distribution width (RBC) [Ratio] 16.9 % High 11.5 - 15.0 % [facility] Hematocrit (Bld) [Volume fraction] 29.6 % Low 36.0 - 46.0 % [facility] Hemoglobin (Bld) [Mass/Vol] 9.3 g/dL Low 11.5 - 15.5 g/dL [facility] Interpretation and review of laboratory results Abnormal [facility] MCH (RBC) [Entitic mass] 26.7 pg 26.0 - 34.[address] [facility] MCHC (RBC) [Mass/Vol] 31.4 g/dL 30.5 - 36.0 g/dL [facility] MCV (RBC) [Entitic vol] 85.1 fL 80.0 - 100.[address] [facility] Nucleated RBC (Bld) [#/Vol] NINF [facility] Platelet mean volume (Bld) [Entitic vol] 10.2 fL 9.0 - 12.[address] [facility] Platelets (Bld) [#/Vol] 324 10*3/uL [facility] RBC (Bld) [#/Vol] 3.48 10*6/uL Low 3.90 - 5.2 0 m/uL [facility] WBC (Bld) [#/Vol] 5.12 10*3/uL [facility] Erythrocyte distribution width (RBC) [Ratio] 16.9 % High 11.5-15.0 [facility] Comment on above: Order Comment: Speci men Type: BLOOD SPECIMENOrdering Facility: [facility] Address: [address] [place] [address] Performed By: #### 5 8410-2 ####[facility] LABORATORYCLIA [id number] [address] Hematocrit (Bld) [Volume fraction] 29.6 % Low 36.0-46.0 [facility] Comment on above: Order Comment: Speci men Type: BLOOD SPECIMENOrdering Facility: [facility] Address: [address] [place] [address] Performed By: #### 5 8410-2 ####[facility] LABORATORYCLIA [id number] [address] [place] Hemoglobin (Bld) [Mass/Vol] 9.3 g/dL Low 11.5-15.5 [facility] Comment on above: Order Comment: Speci men Type: BLOOD SPECIMENOrdering Facility: [facility] Address: [address] [place] [address] Performed By: #### 5 8410-2 ####[facility] LABORATORYCLIA [id number] [address] MCH (RBC) [Entitic mass] 26.7 pg Normal 26.0-34.0 [facility] Comment on above: Order Comment: Speci men Type: BLOOD SPECIMENOrdering Facility: [facility] Address: [address] [place] [address] Performed By: #### 5 8410-2 ####[facility] LABORATORYCLIA [id number] [address] [place] [facility] MCHC (RBC) [Mass/Vol] 31.4 g/dL Normal 30.5-36.0 [facility] Comment on above: Order Comment: Speci men Type: BLOOD SPECIMENOrdering Facility: [facility] Address: [address] [place] [address] Performed By: #### 5 8410-2 ####[facility] LABORATORYCLIA [id number] [address] MCV (RBC) [Entitic vol] 85.1 fL Normal 80.0-100.0 [facility] Comment on above: Order Comment: Speci men Type: BLOOD SPECIMENOrdering Facility: [facility] Address: [address] [place] [address] Performed By: #### 5 8410-2 ####[facility] LABORATORYCLIA [id number] [place] [address] [place] Nucleated RBC (Bld) [#/Vol] 10*3/uL Normal <0.01 [facility] Comment on above: Order Comment: Speci men Type: BLOOD SPECIMENOrdering Facility: [facility] Address: [address] [place] [address] Performed By: #### 5 8410-2 ####[facility]OR[facility] LABORATORYCLIA [id number] [address] [place] Platelet mean volume (Bld) [Entitic vol] 10.2 fL Normal 9.0-12.7 [facility] Comment on above: Order Comment: Speci men Type: BLOOD SPECIMENOrdering Facility: [facility] Address: [address] [place] [address] Performed By: #### 5 8410-2 ####[facility]OR[facility] LABORATORYCLIA [id number] [address] [place] Platelets (Bld) [#/Vol] 324 10*3/uL Normal 150-400 [facility] Comment on above: Order Comment: Speci men Type: BLOOD SPECIMENOrdering Facility: [facility] Address: [address] [place] [address] Performed By: #### 5 8410-2 ####MOR[facility] LABORATORYCLIA [id number] [place] [address] [place] RBC (Bld) [#/Vol] 3.48 10*6/uL Low 3.90-5.20 [facility] Comment on above: Order Comment: Speci men Type: BLOOD SPECIMENOrdering Facility: [facility] Address: [address] [place] [address] Performed By: #### 5 8410-2 ####[facility] LABORATORYCLIA [id number] [place] [address] [facility] WBC (Bld) [#/Vol] 5.12 10*3/uL Normal 3.70-11.00 [facility] Comment on above: Order Comment: Speci men Type: BLOOD SPECIMENOrdering Facility: [facility] Address: [address] [place] [address] Performed By: #### 5 8410-2 ####[facility] LABORATORYCLIA [id number] [place] [address] [facility] CBC panel Auto (Bld)on 06-28 Erythrocyte distribution width (RBC) [Ratio] 16.6 % High 11.5 - 15.0 % [facility] Hematocrit (Bld) [Volume fraction] 28.8 % Low 36.0 - 46.0 % [facility] Hemoglobin (Bld) [Mass/Vol] 9.0 g/dL Low 11.5 - 15.5 g/dL [facility] Interpretation and review of laboratory results Abnormal [facility] MCH (RBC) [Entitic mass] 26.8 pg 26.0 - 34.[address] [facility] MCHC (RBC) [Mass/Vol] 31.3 g/dL 30.5 - 36.0 g/dL [facility] MCV (RBC) [Entitic vol] 85.7 fL 80.0 - 100.[address] [facility] Nucleated RBC (Bld) [#/Vol] NINF [facility] Platelet mean volume (Bld) [Entitic vol] 10.5 fL 9.0 - 12.[address] [facility] Platelets (Bld) [#/Vol] 316 10*3/uL [facility] RBC (Bld) [#/Vol] 3.36 10*6/uL Low 3.90 - 5.2 0 m/uL [facility] WBC (Bld) [#/Vol] 5.27 10*3/uL [facility] Erythrocyte distribution width (RBC) [Ratio] 16.6 % High 11.5-15.0 [facility] Comment on above: Order Comment: Speci men Type: BLOOD SPECIMEN [facility] Address: [address] [place] [address] Performed By: #### 2 276-4 #### [facility] CLIA [id number] [address] [place] [address] [place] Hematocrit (Bld) [Volume fraction] 28.8 % Low 36.0-46.0 [facility] Comment on above: Order Comment: Speci men Type: BLOOD SPECIMEN [facility] Address: [address] [place] [address] Performed By: #### 2 276-4 #### [facility] CLIA [id number] [address] [place] [address] [place] Hemoglobin (Bld) [Mass/Vol] 9.0 g/dL Low 11.5-15.5 [facility] Comment on above: Order Comment: Speci men Type: BLOOD SPECIMEN [facility] Facility[facility] Address: [address] [place] [address] Performed By: #### 2 276-4 #### [facility] CLIA [id number] [address] [place] [address] [place] MCH (RBC) [Entitic mass] 26.8 pg Normal 26.0-34.0 [facility] Comment on above: Order Comment: Speci men Type: BLOOD SPECIMEN [facility] Address: [address] [place] [address] Performed By: #### 2 276-4 #### [facility] CLIA [id number] [address] [place] [address] [place] MCHC (RBC) [Mass/Vol] 31.3 g/dL Normal 30.5-36.0 [facility] Comment on above: Order Comment: Speci men Type: BLOOD SPECIMEN [facility] Address: [address] [place] [address] Performed By: #### 2 276-4 #### [facility] CLIA [id number] [address] [place] [address] [place] MCV (RBC) [Entitic vol] 85.7 fL Normal 80.0-100.0 [facility] Comment on above: Order Comment: Speci men Type: BLOOD SPECIMEN [facility] Address: [address] [place] [address] Performed By: #### 2 276-4 #### [facility] CLIA [id number] [address] [place] [address] [place] Nucleated RBC (Bld) [#/Vol] 10*3/uL Normal <0.01 [facility] Comment on above: Order Comment: Speci men Type: BLOOD SPECIMEN [facility] Address: [address] [place] [address] Performed By: #### 2 276-4 #### [facility] CLIA [id number] [address] [place] [address] [place] Platelet mean volume (Bld) [Entitic vol] 10.5 fL Normal 9.0-12.7 [facility] Comment on above: Order Comment: Speci men Type: BLOOD SPECIMEN [facility] Address: [address] [place] [address] Performed By: #### 2 276-4 #### [facility] CLIA [id number] [address] [place] [address] [place] Platelets (Bld) [#/Vol] 316 10*3/uL Normal 150-400 [facility] Comment on above: Order Comment: Speci men Type: BLOOD SPECIMEN [facility] Address: [address] [place] [address] Performed By: #### 2 276-4 #### [facility] CLIA [id number] [address] [place] [address] [place] RBC (Bld) [#/Vol] 3.36 10*6/uL Low 3.90-5.20 [facility] Comment on above: Order Comment: Speci men Type: BLOOD SPECIMEN [facility] Address: [address] [place] [address] Performed By: #### 2 276-4 #### [facility] CLIA [id number] [address] [place] [address] [place] WBC (Bld) [#/Vol] 5.27 10*3/uL Normal 3.70-11.00 [facility] Comment on above: Order Comment: Speci men Type: BLOOD SPECIMEN [facility] Address: [address] [place] [address] Performed By: #### 2 276-4 #### [facility] CLIA [id number] [address] [place] [address] [place] FERRITINon 06-27-2024 Ferritin [Mass/Vol] 67.5 ng/mL 14.7 - 205.1 ng/mL [facility] Ferritin SerPl-mCncon 2023 Ferritin [Mass/Vol] 67.5 ng/mL Normal 14.7-205.1 [facility] Comment on above: Order Comment: Speci men Type: BLOOD SPECIMEN [facility] Address: [address] [place] [address] Performed By: #### 2 276-4 #### [facility] CLIA [id number] [address] [place] [address] [place] Ferritin [Mass/Vol]on 2023 Interpretation and review of laboratory results Normal [facility] Iron and Iron binding capaci ty panelon 06-27-2024 Interpretation and review of laboratory results Abnormal [facility] Iron [Mass/Vol] 30 ug/dL Low 41 - 186 ug/dL [facility] Iron binding capacity [Mass/Vol] 298 ug/dL 232 - 386 ug/dL [facility] Iron/TIBC [Molar ratio] 10.1 % Low 15.0 - 57.0 % [facility] Iron [Mass/Vol] 30 ug/dL Low 41-186 [facility] Comment on above: Order Comment: Speci men Type: BLOOD SPECIMEN [facility] Address: [address] [place] [address] Performed By: #### 2 276-4 #### [facility] CLIA [id number] [place] [facility] Iron binding capacity [Mass/Vol] 298 ug/dL Normal 232-386 [facility] Comment on above: Order Comment: Speci men Type: BLOOD SPECIMEN [facility] Address: [address] [place] [address] Performed By: #### 2 276-4 #### [facility] CLIA [id number] [address] STATES OF [facility] Iron/TIBC [Molar ratio] 10.1 % Low 15.0-57.0 C [facility] Comment on above: Order Comment: Speci men Type: BLOOD SPECIMEN Ordering Facility: [facility] Address: [address] [place] [address] Performed By: #### 2 276-4 #### [facility] CLIA [id number] [address] OF [facility] CBC panel Auto (Bld)on 06-25 Erythrocyte distribution width (RBC) [Ratio] 15.9 % High 11.5 - 15.0 % [facility] Hematocrit (Bld) [Volume fraction] 28.7 % Low 36.0 - 46.0 % [facility] Hemoglobin (Bld) [Mass/Vol] 9.0 g/dL Low 11.5 - 15.5 g/dL [facility] Interpretation and review of laboratory results Abnormal [facility] MCH (RBC) [Entitic mass] 26.7 pg 26.0 - 34.[address] [facility] MCHC (RBC) [Mass/Vol] 31.4 g/dL 30.5 - 36.0 g/dL [facility] MCV (RBC) [Entitic vol] 85.2 fL 80.0 - 100.[address] [facility] Nucleated RBC (Bld) [#/Vol] NINF [facility] Platelet mean volume (Bld) [Entitic vol] 10.8 fL 9.0 - 12.[address] [facility] Platelets (Bld) [#/Vol] 315 10*3/uL [facility] RBC (Bld) [#/Vol] 3.37 10*6/uL Low 3.90 - 5.2 0 m/uL [facility] WBC (Bld) [#/Vol] 4.96 10*3/uL [facility] Erythrocyte distribution width (RBC) [Ratio] 15.9 % High 11.5-15.0 [facility] Comment on above: Order Comment: Speci men Type: BLOOD SPECIMEN Ordering Facility: [facility] Address: [address] [place] [address] Performed By: #### 2 4362-6 #### [facility] CLIA [id number] [address] [place] [address] [place] Hematocrit (Bld) [Volume fraction] 28.7 % Low 36.0-46.0 [facility] Comment on above: Order Comment: Speci men Type: BLOOD SPECIMEN Ordering Facility: [facility] Address: [address] [place] [address] Performed By: #### 2 4362-6 #### [facility] CLIA [id number] [address] [place] [address] [place] Hemoglobin (Bld) [Mass/Vol] 9.0 g/dL Low 11.5-15.5 [facility] Comment on above: Order Comment: Speci men Type: BLOOD SPECIMEN Ordering Facility: [facility] Address: [address] [place] [address] Performed By: #### 2 4362-6 #### [facility] CLIA [id number] [address] [place] [address] [place] MCH (RBC) [Entitic mass] 26.7 pg Normal 26.0-34.0 [facility] Comment on above: Order Comment: Speci men Type: BLOOD SPECIMEN Ordering Facility: [facility] Address: [address] [place] [address] Performed By: #### 2 4362-6 #### [facility] CLIA [id number] [address] [place] [address] [place] MCHC (RBC) [Mass/Vol] 31.4 g/dL Normal 30.5-36.0 [facility] Comment on above: Order Comment: Speci men Type: BLOOD SPECIMEN Ordering Facility: [facility] Address: [address] [place] [address] Performed By: #### 2 4362-6 #### [facility] CLIA [id number] [address] [place] [address] [place] MCV (RBC) [Entitic vol] 85.2 fL Normal 80.0-100.0 [facility] Comment on above: Order Comment: Speci men Type: BLOOD SPECIMEN Ordering Facility: [facility] Address: [address] [place] [address] Performed By: #### 2 4362-6 #### [facility] CLIA [id number] [address] [place] [address] [place] Nucleated RBC (Bld) [#/Vol] 10*3/uL Normal <0.01 [facility] Comment on above: Order Comment: Speci men Type: BLOOD SPECIMEN Ordering Facility: [facility] Address: [address] [place] [address] Performed By: #### 2 4362-6 #### [facility] CLIA [id number] [address] [place] [address] [place] Platelet mean volume (Bld) [Entitic vol] 10.8 fL Normal 9.0-12.7 [facility] Comment on above: Order Comment: Speci men Type: BLOOD SPECIMEN Ordering Facility: [facility] Address: [address] [place] [address] Performed By: #### 2 4362-6 #### [facility] CLIA [id number] [address] [place] [address] [place] Platelets (Bld) [#/Vol] 315 10*3/uL Normal 150-400 [facility] Comment on above: Order Comment: Speci men Type: BLOOD SPECIMEN Ordering Facility: [facility] Address: [address] [place] [address] Performed By: #### 2 4362-6 #### [facility] CLIA [id number] [address] [place] [address] [place] RBC (Bld) [#/Vol] 3.37 10*6/uL Low 3.90-5.20 [facility] Comment on above: Order Comment: Speci men Type: BLOOD SPECIMEN Ordering Facility: [facility] Address: [address] [place] [address] Performed By: #### 2 4362-6 #### [facility] CLIA [id number] [address] [place] [address] [place] WBC (Bld) [#/Vol] 4.96 10*3/uL Normal 3.70-11.00 [facility] Comment on above: Order Comment: Speci men Type: BLOOD SPECIMEN Ordering Facility: [facility] Address: [address] [place] [address] Performed By: #### 2 4362-6 #### [facility] CLIA [id number] [address] [place] [address] [place] Basic metabolic 2000 panelon 06-21-2024 Anion gap [Moles/Vol] 12 mmol/L 8 - 15 mmol/L [facility] Calcium [Mass/Vol] 9.3 mg/dL 8.5 - 10. 2 mg/dL [facility] Chloride [Moles/Vol] 108 mmol/L High 98 - 10 7 mmol/L [facility] CO2 [Moles/Vol] 21 mmol/L Low 22 - 30 mmol/L [facility] Creatinine [Mass/Vol] 0.92 mg/dL 0.58 - 0.96 mg/dL [facility] GFR/1.73 sq M.predicted among non-blacks MDRD (S/P/Bld) [Vol rate/Area] 62 mL/min/{1.73_m2} - PINF [facility] Comment on above: Estimated Glomerular Filtration [...] 101 mg/dL High 74 - 99 mg/dL [facility] Comment on above: The [place] Diab[employer] Association (ADA) provides guidance for [...] Standards of Medical Care in Diabetes 2016, [place] [employer]. Diabetes Care. 2016.39(Suppl 1). Interpretation and review of laboratory results Abnormal [facility] Potassium [Moles/Vol] 4.6 mmol/L 3.7 - 5.1 mmol/L [facility] Sodium [Moles/Vol] 141 mmol/L 136 - 144 mmol/L [facility] Urea nitrogen [Mass/Vol] 22 mg/dL High 7 - 21 mg/dL [facility] Anion gap [Moles/Vol] 12 mmol/L Normal 8-15 [facility] Comment on above: Order Comment: Rhina mason Type: BLOOD SPECIMEN Ordering Facility: [facility] Address: [address] [place] [address] Performed By: #### 2 4362-6 #### [facility] CLIA [id number] [address] [place] [address] [place] Calcium [Mass/Vol] 9.3 mg/dL Normal 8.5-10.2 [facility] Comment on above: Order Comment: Rhina mason Type: BLOOD SPECIMEN Ordering Facility: [facility] Address: [address] [place] [address] Performed By: #### 2 4362-6 #### [facility] CLIA [id number] [address] [place] [address] [place] Chloride [Moles/Vol] 108 mmol/L High 98-107 [facility] Comment on above: Order Comment: Speci men Type: BLOOD SPECIMEN Ordering Facility: [facility] Address: [address] [place] [address] Performed By: #### 2 4362-6 #### [facility] CLIA [id number] [address] [place] [address] [place] CO2 [Moles/Vol] 21 mmol/L Low 22-30 [facility] Comment on above: Order Comment: Speci men Type: BLOOD SPECIMEN Ordering Facility: [facility] Address: [address] [place] [address] Performed By: #### 2 4362-6 #### [facility] CLIA [id number] [address] [place] [address] [place] Creatinine [Mass/Vol] 0.92 mg/dL Normal 0.58-0.96 [facility] Comment on above: Order Comment: Speci men Type: BLOOD SPECIMEN Ordering Facility: [facility] Address: [address] [place] [address] Performed By: #### 2 4362-6 #### [facility] CLIA [id number] [address] [place] [address] [place] Creatinine and Glomerular filtration rate.predicted panel (S/P/Bld) 62 mL/min/1.73m??? Normal >=60 [facility] Comment on above: Order Comment: Speci men Type: BLOOD SPECIMEN Ordering Facility: [facility] Address: [address] [place] [address] Result Comment: Isa mated Glomerular Filtration Rate [...] GFR. Performed By: #### 2 4362-6 #### [facility] CLIA [id number] [address] [place] [address] [place] Glucose [Mass/Vol] 101 mg/dL High 74-99 [facility] Comment on above: Order Comment: Rhina mason Type: BLOOD SPECIMEN Ordering Facility: [facility] Address: [address] [place] [address] Result Comment: The [place] Diabetes Association (ADA) provides guidance for cutoff [...] Standards of Medical Care in Diabetes 2016, [place] [employer]. Diabetes Care. 2016.39(Suppl 1). Performed By: #### 2 4362-6 #### [facility] CLIA [id number] [address] [place] [address] [place] Potassium [Moles/Vol] 4.6 mmol/L Normal 3.7-5.1 [facility] Comment on above: Order Comment: Rhina mason Type: BLOOD SPECIMEN Ordering Facility: [facility] Address: [address] [place] [address] Performed By: #### 2 4362-6 #### [facility] CLIA [id number] [address] [place] [address] [place] Sodium [Moles/Vol] 141 mmol/L Normal 136-144 [facility] Comment on above: Order Comment: Rhina mason Type: BLOOD SPECIMEN Ordering Facility: [facility] Address: [address] [place] [address] Performed By: #### 2 4362-6 #### [facility] CLIA [id number] [address] [place] [address] [place] Urea nitrogen [Mass/Vol] 22 mg/dL High 7-21 [facility] Comment on above: Order Comment: Speci men Type: BLOOD SPECIMEN Ordering Facility: [facility] Address: [address] [place] [address] Performed By: #### 2 4362-6 #### [facility] CLIA [id number] [facility] [place] [address] [place] CBC panel Auto (Bld)on 06-21 Erythrocyte distribution width (RBC) [Ratio] 15.8 % High 11.5 - 15.0 % [facility] Hematocrit (Bld) [Volume fraction] 34.2 % Low 36.0 - 46.0 % [facility] Hemoglobin (Bld) [Mass/Vol] 10.6 g/dL Low 11.5 - 15.5 g/dL [facility] Interpretation and review of laboratory results Abnormal [facility] MCH (RBC) [Entitic mass] 26.4 pg 26.0 - 34.[address] [facility] MCHC (RBC) [Mass/Vol] 31.0 g/dL 30.5 - 36.0 g/dL [facility] MCV (RBC) [Entitic vol] 85.3 fL 80.0 - 100.[address] [facility] Nucleated RBC (Bld) [#/Vol] NINF [facility] Platelet mean volume (Bld) [Entitic vol] 10.7 fL 9.0 - 12.[address] [facility] Platelets (Bld) [#/Vol] 300 10*3/uL [facility] RBC (Bld) [#/Vol] 4.01 10*6/uL 3.90 - 5.2 0 m/uL [facility] WBC (Bld) [#/Vol] 5.52 10*3/uL [facility] Erythrocyte distribution width (RBC) [Ratio] 15.8 % High 11.5-15.0 [facility] Comment on above: Order Comment: Speci men Type: BLOOD SPECIMEN Ordering Facility: [facility] Address: [address] [place] [address] Performed By: #### 2 4362-6 #### [facility] CLIA [id number] [address] [place] [address] [place] Hematocrit (Bld) [Volume fraction] 34.2 % Low 36.0-46.0 [facility] Comment on above: Order Comment: Speci men Type: BLOOD SPECIMEN Ordering Facility: [facility] Address: [address] [place] [address] Performed By: #### 2 4362-6 #### [facility] CLIA [id number] [address] [place] [address] [place] Hemoglobin (Bld) [Mass/Vol] 10.6 g/dL Low 11.5-15.5 [facility] Comment on above: Order Comment: Speci men Type: BLOOD SPECIMEN Ordering Facility: [facility] Address: [address] [place] [address] Performed By: #### 2 4362-6 #### [facility] CLIA [id number] [address] [place] [address] [place] MCH (RBC) [Entitic mass] 26.4 pg Normal 26.0-34.0 [facility] Comment on above: Order Comment: Speci men Type: BLOOD SPECIMEN Ordering Facility: [facility] Address: [address] [place] [address] Performed By: #### 2 4362-6 #### [facility] CLIA [id number] [address] [place] [address] [place] MCHC (RBC) [Mass/Vol] 31.0 g/dL Normal 30.5-36.0 [facility] Comment on above: Order Comment: Speci men Type: BLOOD SPECIMEN Ordering Facility: [facility] Address: [address] [place] [address] Performed By: #### 2 4362-6 #### [facility] CLIA [id number] [address] [place] [address] [place] MCV (RBC) [Entitic vol] 85.3 fL Normal 80.0-100.0 [facility] Comment on above: Order Comment: Speci men Type: BLOOD SPECIMEN Ordering Facility: [facility] Address: [address] [place] [address] Performed By: #### 2 4362-6 #### [facility] CLIA [id number] [address] [place] [address] [place] Nucleated RBC (Bld) [#/Vol] 10*3/uL Normal <0.01 [facility] Comment on above: Order Comment: Speci men Type: BLOOD SPECIMEN Ordering Facility: [facility] Address: [address] [place] [address] Performed By: #### 2 4362-6 #### [facility] CLIA [id number] [address] [place] [address] [place] Platelet mean volume (Bld) [Entitic vol] 10.7 fL Normal 9.0-12.7 [facility] Comment on above: Order Comment: Speci men Type: BLOOD SPECIMEN Ordering Facility: [facility] Address: [address] [place] [address] Performed By: #### 2 4362-6 #### [facility] CLIA [id number] [address] [place] [address] [place] Platelets (Bld) [#/Vol] 300 10*3/uL Normal 150-400 [facility] Comment on above: Order Comment: Speci men Type: BLOOD SPECIMEN Ordering Facility: [facility] Address: [address] [place] [address] Performed By: #### 2 4362-6 #### [facility] CLIA [id number] [address] [place] [address] [place] RBC (Bld) [#/Vol] 4.01 10*6/uL Normal 3.90-5.20 [facility] Comment on above: Order Comment: Speci men Type: BLOOD SPECIMEN Ordering Facility: [facility] Address: [address] [place] [address] Performed By: #### 2 4362-6 #### [facility] CLIA [id number] [address] [place] [address] [place] WBC (Bld) [#/Vol] 5.52 10*3/uL Normal 3.70-11.00 [facility] Comment on above: Order Comment: Speci men Type: BLOOD SPECIMEN Ordering Facility: [facility] Address: [address] [place] [address] Performed By: #### 2 4362-6 #### [facility] CLIA [id number] [address] [place] [address] [place] Basic metabolic 2000 panelon 06-19-2024 Anion gap [Moles/Vol] 10 mmol/L Normal 8-15 [facility] Comment on above: Order Comment: Speci men Type: BLOOD SPECIMEN Ordering Facility: [facility] Address: [address] [place] [address] Performed By: #### 2 4321-2, 88588-6, #### [facility] CLIA [id number] [address] [place] [address] [place] Calcium [Mass/Vol] 8.9 mg/dL Normal 8.5-10.2 [facility] Comment on above: Order Comment: Speci men Type: BLOOD SPECIMEN Ordering Facility: [facility] Address: [address] [place] [address] Performed By: #### 2 4321-2, 42012-8, #### [facility] CLIA [id number] [address] [place] [address] [place] Chloride [Moles/Vol] 109 mmol/L High 98-107 [facility] Comment on above: Order Comment: Speci men Type: BLOOD SPECIMEN Ordering Facility: [facility] Address: [address] [place] [address] Performed By: #### 2 4321-2, 28780-3, #### [facility] CLIA [id number] [address] CO2 [Moles/Vol] 21 mmol/L Low 22-30 [facility] Comment on above: Order Comment: Speci men Type: BLOOD SPECIMEN Ordering Facility: [facility] Address: [address] [place] [address] Performed By: #### 2 4321-2, 01132-4, #### [facility] CLIA [id number] [address] Creatinine [Mass/Vol] 1.04 mg/dL High 0.58-0.96 [facility] Comment on above: Order Comment: Speci men Type: BLOOD SPECIMEN Ordering Facility: [facility] Address: [address] [place] [address] Performed By: #### 2 4321-2, 22059-5, #### [facility] CLIA [id number] [address] Creatinine and Glomerular filtration rate.predicted panel (S/P/Bld) 53 mL/min/1.73m??? Low >=60 [facility] Comment on above: Order Comment: Speci men Type: BLOOD SPECIMEN Ordering Facility: [facility] Address: [address] [place] [address] Result Comment: Isa mated Glomerular Filtration Rate [...] actual GFR. Performed By: #### 2 4321-2, 50481-7, #### [facility] CLIA [id number] [address] [place] [address] [place] Glucose [Mass/Vol] 103 mg/dL High 74-99 [facility] Comment on above: Order Comment: Rhina mason Type: BLOOD SPECIMEN Ordering Facility: [facility] Address: [address] [place] [address] Result Comment: The [place] Diabetes Association (ADA) provides guidance for cutoff [...] Standards of Medical Care in Diabetes 2016, [place] [employer]. Diabetes Care. 2016.39(Suppl 1). Performed By: #### 2 4321-2, 31549-9, #### [facility] CLIA [id number] [address] [place] [address] [place] Potassium [Moles/Vol] 4.8 mmol/L Normal 3.7-5.1 [facility] Comment on above: Order Comment: Rhina mason Type: BLOOD SPECIMEN Ordering Facility: [facility] Address: [address] [place] [address] Performed By: #### 2 4321-2, 39191-2, #### [facility] CLIA [id number] [address] [place] [address] [place] Sodium [Moles/Vol] 140 mmol/L Normal 136-144 [facility] Comment on above: Order Comment: Rhina mason Type: BLOOD SPECIMEN Ordering Facility: [facility] Address: [address] [place] [address] Performed By: #### 2 4321-2, 65893-2, #### [facility] CLIA [id number] [address] [place] [address] [place] Urea nitrogen [Mass/Vol] 25 mg/dL High 7-21 [facility] Comment on above: Order Comment: Speci men Type: BLOOD SPECIMEN Ordering Facility: [facility] Address: [address] [place] [address] Performed By: #### 2 4321-2, 38796-7, #### [facility] CLIA [id number] [address] CBC panel Auto (Bld)on 06-19 Erythrocyte distribution width (RBC) [Ratio] 15.9 % High 11.5-15.0 [facility] Comment on above: Order Comment: Speci men Type: BLOOD SPECIMEN Ordering Facility: [facility] Address: [address] [place] [address] Performed By: #### 2 4321-2, 49794-6, #### [facility] CLIA [id number] [address] Hematocrit (Bld) [Volume fraction] 30.6 % Low 36.0-46.0 [facility] Comment on above: Order Comment: Speci men Type: BLOOD SPECIMEN Ordering Facility: [facility] Address: [address] [place] [address] Performed By: #### 2 4321-2, 56802-3, #### [facility] CLIA [id number] [address] STATES OF [facility] Hemoglobin (Bld) [Mass/Vol] 9.5 g/dL Low 11.5-15.5 [facility] Comment on above: Order Comment: Speci men Type: BLOOD SPECIMEN Ordering Facility: [facility] Address: [address] [place] [address] Performed By: #### 2 1-2, 70816-7, #### [facility] CLIA [id number] [address] [place] MCH (RBC) [Entitic mass] 26.5 pg Normal 26.0-34.0 [facility] Comment on above: Order Comment: Speci men Type: BLOOD SPECIMEN Ordering Facility: [facility] Address: [address] [place] [address] Performed By: #### 2 1-2, 47190-4, #### [facility] CLIA [id number] [address] MCHC (RBC) [Mass/Vol] 31.0 g/dL Normal 30.5-36.0 [facility] Comment on above: Order Comment: Speci men Type: BLOOD SPECIMEN Ordering Facility: [facility] Address: [address] [place] [address] Performed By: #### 2 1-2, 10693-7, #### [facility] CLIA [id number] [address] [place] [address] [place] MCV (RBC) [Entitic vol] 85.5 fL Normal 80.0-100.0 [facility] Comment on above: Order Comment: Speci men Type: BLOOD SPECIMEN Ordering Facility: [facility] Address: [address] [place] [address] Performed By: #### 2 1-2, 69257-4, #### [facility] CLIA [id number] [address] OF [facility] Nucleated RBC (Bld) [#/Vol] 10*3/uL Normal <0.01 [facility] Comment on above: Order Comment: Speci men Type: BLOOD SPECIMEN Ordering Facility: [facility] Address: [address] [place] [address] Performed By: #### 2 1-2, 96169-6, #### [facility] CLIA [id number] [address] [place] Platelet mean volume (Bld) [Entitic vol] 10.4 fL Normal 9.0-12.7 [facility] Comment on above: Order Comment: Speci men Type: BLOOD SPECIMEN Ordering Facility: [facility] Address: [address] [place] [address] Performed By: #### 2 4321-2, 20477-3, 53382-1 #### [facility] CLIA [id number] [address] Platelets (Bld) [#/Vol] 245 10*3/uL Normal 150-400 [facility] Comment on above: Order Comment: Speci men Type: BLOOD SPECIMEN Ordering Facility: [facility] Address: [address] [place] [address] Performed By: #### 2 4321-2, 50581-2, #### [facility] CLIA [id number] [address] OF [facility] RBC (Bld) [#/Vol] 3.58 10*6/uL Low 3.90-5.20 [facility] Comment on above: Order Comment: Speci men Type: BLOOD SPECIMEN Ordering Facility: [facility] Address: [address] [place] [address] Performed By: #### 2 4321-2, 56231-1, #### [facility] CLIA [id number] [address] OF [facility] WBC (Bld) [#/Vol] 4.67 10*3/uL Normal 3.70-11.00 [facility] Comment on above: Order Comment: Speci men Type: BLOOD SPECIMEN Ordering Facility: [facility] Address: [address] [place] [address] Performed By: #### 2 4321-2, 98316-4, #### [facility] LABORATORY CLIA [id number] [address] [place] [id number] [facility] CNDSon 06-19-2024 CNDS HNO ID: [id number] Author: DON EDWARDS DO Service: Hospital Medicine [...] eliquis. She was seen by therapy and retirement facility was recommended. He slowly was improving. She was discharged to retirement facility in stable condition. OTHER PROBLEMS/DIAGNOSIS: Principal [...] call for appointment?: Yes Jared Evans MD [phone] [address] [facility] [address] PCP Requested Referral Follow-Up Appointment When: In 2 weeks Patient/Parents to call for appointment?: Yes Hermila Padilla MD [phone] [place] [address] [facility] [address] PCP Requested Referral Follow-Up Appointment For hydronephrosis and renal lesion When: In 2 weeks Patient/Parents to call for appointment?: Yes Mikhail Vuong Jr., MD [phone] [address] [facility] [address] PCP Requested Referral Follow-Up Appointment With: neurology When: In 4 weeks Patient/Parents to call for appointment?: Yes Additional Provider to Provider Information: Treatment Team: Attending Provider: Don Edwards DO Consulting: Pratibha Logan MD Consulting: Torsten Silva MD Primary Service: BLAS LA[facility] Critical Issues: SPECIALIST FOLLOW-UP: urology, cardiology, neurology LABS AND PROCEDURES PENDING AT DISCHARGE: No pending results. FOLLOW-UP APPOINTMENTS ALREADY SCHEDULED WITH A [facility] PROVIDER: No future appointments. Discharge Information Row Name ED to Hosp-Admission (Current) from 06/10/2024 in [place] 81 NEURO/CARD Rehab Facility Agency [facility] ALLERGIES Allergen Reactions Percocet [Oxycodone* Itching DISCHARGE MEDICA (more content not included)... Normal [facility] Basic metabolic 2000 panelon 06-18-2024 Anion gap [Moles/Vol] 10 mmol/L Normal 8-15 [facility] Comment on above: Order Comment: Speci men Type: BLOOD SPECIMEN Ordering Facility: [facility] Address: [address] [place] [address] Performed By: #### 2 4321-2, 58749-9, #### [facility] CLIA [id number] [address] [place] [address] [place] Calcium [Mass/Vol] 8.9 mg/dL Normal 8.5-10.2 [facility] Comment on above: Order Comment: Speci men Type: BLOOD SPECIMEN Ordering Facility: [facility] Address: [address] [place] [address] Performed By: #### 2 4321-2, 08165-6, #### [facility] CLIA [id number] [address] [place] [address] [place] Chloride [Moles/Vol] 110 mmol/L High 98-107 [facility] Comment on above: Order Comment: Speci men Type: BLOOD SPECIMEN Ordering Facility: [facility] Address: [address] [place] [address] Performed By: #### 2 4321-2, 80509-2, #### [facility] CLIA [id number] [address] [place] [address] [place] CO2 [Moles/Vol] 21 mmol/L Low 22-30 [facility] Comment on above: Order Comment: Speci men Type: BLOOD SPECIMEN Ordering Facility: [facility] Address: [address] [place] [address] Performed By: #### 2 4321-2, 27087-0, #### [facility] CLIA [id number] [address] [place] [address] [place] Creatinine [Mass/Vol] 0.96 mg/dL Normal 0.58-0.96 [facility] Comment on above: Order Comment: Speci men Type: BLOOD SPECIMEN Ordering Facility: [facility] Address: [address] [place] [address] Performed By: #### 2 4321-2, 03077-6, #### [facility] CLIA [id number] [address] [place] Creatinine and Glomerular filtration rate.predicted panel (S/P/Bld) 58 mL/min/1.73m??? Low >=60 [facility] Comment on above: Order Comment: Rhina mason Type: BLOOD SPECIMEN Ordering Facility: [facility] Address: [address] [place] [address] Result Comment: Isa mated Glomerular Filtration Rate [...] actual GFR. Performed By: #### 2 4321-2, 41910-0, #### [facility] CLIA [id number] [address] [place] [address] [place] Glucose [Mass/Vol] 112 mg/dL High 74-99 [facility] Comment on above: Order Comment: Rhina mason Type: BLOOD SPECIMEN Ordering Facility: [facility] Address: [address] [place] [address] Result Comment: The [place] Diabetes Association (ADA) provides guidance for cutoff [...] Standards of Medical Care in Diabetes 2016, [place] [employer]. Diabetes Care. 2016.39(Suppl 1). Performed By: #### 2 4321-2, 23525-9, #### [facility] CLIA [id number] [address] [place] [address] [place] Potassium [Moles/Vol] 4.4 mmol/L Normal 3.7-5.1 [facility] Comment on above: Order Comment: Speci men Type: BLOOD SPECIMEN Ordering Facility: [facility] Address: [address] [place] [address] Performed By: #### 2 4321-2, 13812-1, #### [facility] CLIA [id number] [address] OF [facility] Sodium [Moles/Vol] 141 mmol/L Normal 136-144 [facility] Comment on above: Order Comment: Speci men Type: BLOOD SPECIMEN Ordering Facility: [facility] Address: [address] [place] [address] Performed By: #### 2 4321-2, 90340-3, #### [facility] CLIA [id number] [address] STATES OF [facility] Urea nitrogen [Mass/Vol] 22 mg/dL High 7-21 [facility] Comment on above: Order Comment: Speci men Type: BLOOD SPECIMEN Ordering Facility: [facility] Address: [address] [place] [address] Performed By: #### 2 4321-2, 24702-5, #### [facility] CLIA [id number] [address] OF [facility] CBC panel Auto (Bld)on 06-18 Erythrocyte distribution width (RBC) [Ratio] 15.9 % High 11.5-15.0 [facility] Comment on above: Order Comment: Speci men Type: BLOOD SPECIMENOrdering Facility: [facility] Address: [address] [place] [address] Performed By: #### 5 8410-2 ####[facility]ORY[facility] [id number] [address] Hematocrit (Bld) [Volume fraction] 34.3 % Low 36.0-46.0 [facility] Comment on above: Order Comment: Speci men Type: BLOOD SPECIMENOrdering Facility: [facility] Address: [address] [place] [address] Performed By: #### 5 8410-2 ####[facility]ORY[facility] [id number] [address] Hemoglobin (Bld) [Mass/Vol] 10.7 g/dL Low 11.5-15.5 [facility] Comment on above: Order Comment: Speci men Type: BLOOD SPECIMENOrdering Facility: [facility] Address: [address] [place] [address] Performed By: #### 5 8410-2 ####[facility]ORYCLIA [id number] [address] MCH (RBC) [Entitic mass] 26.7 pg Normal 26.0-34.0 [facility] Comment on above: Order Comment: Speci men Type: BLOOD SPECIMENOrdering Facility: [facility] Address: [address] [place] [address] Performed By: #### 5 8410-2 ####[facility]ORYCLIA [id number] [address] MCHC (RBC) [Mass/Vol] 31.2 g/dL Normal 30.5-36.0 [facility] Comment on above: Order Comment: Speci men Type: BLOOD SPECIMENOrdering Facility: [facility] Address: [address] [place] [address] Performed By: #### 5 8410-2 ####[facility]ORYCLIA [id number] [address] MCV (RBC) [Entitic vol] 85.5 fL Normal 80.0-100.0 [facility] Comment on above: Order Comment: Speci men Type: BLOOD SPECIMENOrdering Facility: [facility] Address: [address] [place] [address] Performed By: #### 5 8410-2 ####[facility]ATORYCLIA [id number] [address] OF [facility] Nucleated RBC (Bld) [#/Vol] 10*3/uL Normal <0.01 [facility] Comment on above: Order Comment: Speci men Type: BLOOD SPECIMENOrdering Facility: [facility] Address: [address] [place] [address] Performed By: #### 5 8410-2 ####[facility]ATORYCLIA [id number] [place] [address] [place] Platelet mean volume (Bld) [Entitic vol] 10.0 fL Normal 9.0-12.7 [facility] Comment on above: Order Comment: Speci men Type: BLOOD SPECIMENOrdering Facility: [facility] Address: [address] [place] [address] Performed By: #### 5 8410-2 ####[facility]ATORYCLIA [id number] [place] [address] [place] Platelets (Bld) [#/Vol] 273 10*3/uL Normal 150-400 [facility] Comment on above: Order Comment: Speci men Type: BLOOD SPECIMENOrdering Facility: [facility] Address: [address] [place] [address] Performed By: #### 5 8410-2 ####[facility]ATORYCLIA [id number] [place] [address] [place] RBC (Bld) [#/Vol] 4.01 10*6/uL Normal 3.90-5.20 [facility] Comment on above: Order Comment: Speci men Type: BLOOD SPECIMENOrdering Facility: [facility] Address: [address] [place] [address] Performed By: #### 5 8410-2 ####[facility]ATORYCLIA [id number] [place] [address] [place] WBC (Bld) [#/Vol] 5.29 10*3/uL Normal 3.70-11.00 [facility] Comment on above: Order Comment: Speci men Type: BLOOD SPECIMENOrdering Facility: [facility] Address: [address] [place] [address] Performed By: #### 5 8410-2 ####[facility]ATORYCLIA [id number] [address] [place] Hepatic function 2000 panelo n 06-18-2024 Albumin [Mass/Vol] 3.5 g/dL Low 3.9-4.9 [facility] Comment on above: Order Comment: Speci men Type: BLOOD SPECIMEN Ordering Facility: [facility] Address: [address] [place] [address] Performed By: #### 2 4321-2, 41868-6, #### [facility] CLIA [id number] [address] [place] ALP [Catalytic activity/Vol] 80 U/L Normal 34-123 [facility] Comment on above: Order Comment: Speci men Type: BLOOD SPECIMEN Ordering Facility: [facility] Address: [address] [place] [address] Performed By: #### 2 4321-2, 34252-6, #### [facility] CLIA [id number] [address] STATES OF [facility] ALT With P-5'-P [Catalytic activity/Vol] 16 U/L Normal 7-38 [facility] Comment on above: Order Comment: Speci men Type: BLOOD SPECIMEN Ordering Facility: [facility] Address: [address] [place] [address] Performed By: #### 2 4321-2, 06395-4, #### [facility] CLIA [id number] [address] [place] AST With P-5'-P [Catalytic activity/Vol] 20 U/L Normal 13-35 [facility] Comment on above: Order Comment: Speci men Type: BLOOD SPECIMEN Ordering Facility: [facility] Address: [address] [place] [address] Performed By: #### 2 4321-2, 91338-9, #### [facility] CLIA [id number] [address] [place] Bilirubin [Mass/Vol] 0.3 mg/dL Normal 0.2-1.3 [facility] Comment on above: Order Comment: Speci men Type: BLOOD SPECIMEN Ordering Facility: [facility] Address: [address] [place] [address] Performed By: #### 2 4321-2, 47805-1, #### [facility] CLIA [id number] [address] [place] Bilirubin.conjugated [Mass/Vol] mg/dL Normal <0.2 [facility] Comment on above: Order Comment: Speci men Type: BLOOD SPECIMEN Ordering Facility: [facility] Address: [address] [place] [address] Performed By: #### 2 4321-2, 14200-3, #### [facility] CLIA [id number] [address] STATES OF [facility] Protein [Mass/Vol] 6.0 g/dL Low 6.3-8.0 [facility] Comment on above: Order Comment: Speci men Type: BLOOD SPECIMEN Ordering Facility: [facility] Address: [address] [place] [address] Performed By: #### 2 4321-2, 77929-7, #### [facility] CLIA [id number] [address] [place] Magnesium SerPl-mCncon 06-18 Magnesium [Mass/Vol] 1.9 mg/dL Normal 1.7-2.3 [facility] Comment on above: Order Comment: Speci men Type: BLOOD SPECIMEN Ordering Facility: [facility] Address: [address] [place] [address] Performed By: #### 2 4321-2, 51378-6, #### [facility] CLIA [id number] [address] [place] NUTRITIONon 06-18-2024 NUTRITION HNO ID: [id number] Author: NELSON AVILA RD Service: Nutrition Therapy [...] Obtained From: Patient Weight Change: 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(s) ([employer]; 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) MNT Billing: $ Initial Assessment: 1-15 minutes SIGNATURE: Nelson Avila RD PATIENT NAME: Mel Castillo DATE: June 18, 2024 TIME: 11:[address] [facility] THERAPY NTon 06-18-2024 THERAPY NT HNO ID: [id number] Author: SELENA BARR, PT Service: Physical Therapy Author Type: Physical Therapist Type: Therapy (PT/OT/Speech/Resp) Filed: 06/18/2024 12:53 Note Text: Physical Therapy Treatment Summary SERVICE DATE: 06/18/2024 SERVICE TIME: 1056 to 1129 ROOM: [place] [address] PT 6 Clicks Score: 16 DISCHARGE RECOMMENDATIONS [...] Lack of coordination-other TREATMENT INTERVENTIONS Therapeutic Activity (75414) Therapeutic Activity (20032) Treatment Minutes: 25 $ Therapeutic Activity (96688) Billed Units: 2 units Timed Code Treatment [...] Balance, Non-func (more content not included)... Normal [facility] THERAPY NT HNO ID: [id number] Author: ULI JEFFERSON OTR/L Service: Occupational Therapy Author Type: Occupational Therapist Type: Therapy (PT/OT/Speech/Resp) Filed: 06/18/2024 13:34 Note Text: Occupational Therapy Treatment Summary SERVICE DATE: 06/18/2024 SERVICE TIME: 1130 to 1154 ROOM: [id number] OT 6 Clicks Score: 15 DISCHARGE RECOMMENDATIONS [...] Deficits: Safety Awareness SLUMS Total Score ( 30): 12 (06/18/24) 4AT Score: 3 (06/12/24) Delirium Positive/Negative: Negative (06/12/24) THERAPY DIAGNOSIS Reduced mobility-other, Decreased activities of daily living (ADL), Muscle Weakness (generalized), General symptoms and signs-other TREATMENT INTERVENTIONS Self Longterm Management (12495), Cognitive Training (01055 and 55856) Timed Code Treatment (minutes): 24 Skilled Treatment Time (minutes): 24 Self Longterm Management (06050) Treatment Minutes: 11 $ Self Longterm Management (47252) Billed Units: 1 unit Minimal assist with meal set-up. Cueing for physical assist with maintaining functional grasp on packaging to tear open. Pt demonstrated impaired hand-eye coordination/visual spatial awareness with bringing food to mouth. Provided further cueing and tactile awareness/sequencing to maximize ease with self feeding. Cognitive Training First 15 Minutes (75595) : 13 $ Cognitive Training First 15 Minutes (24131) Billed Units: 1 unit Facilitated completion of [facility] Mental Examination (UMS) to screen performance with [...] Occupational Therapy, Safety/Judgment, Sitting Balance to Improve [place] with ADLs/Self-Care, Cognitive Skills, Command Following, Expected Functional Level, Feeding Tasks, Low Vision Strategies, Positioning, Visual Scanning/Attention Activities THERAPEUTIC SKILLS USED Activity Dosing, Cues for (more content not included)... Normal [facility] CBC panel Auto (Bld)on 06-17 Erythrocyte distribution width (RBC) [Ratio] 15.7 % High 11.5-15.0 [facility] Comment on above: Order Comment: Rhina mason Type: BLOOD SPECIMEN Ordering Facility[facility] Address: [address] [place] [address] Performed By: #### 2 4321-2, 82883-8, #### [facility] CLIA [id number] [address] [place] [address] [place] Hematocrit (Bld) [Volume fraction] 35.1 % Low 36.0-46.0 [facility] Comment on above: Order Comment: Rhina mason Type: BLOOD SPECIMEN Ordering Facility: [facility] Address: [address] [place] [address] Performed By: #### 2 4321-2, 30773-7, #### [facility] CLIA [id number] [address] STATES OF [facility] Hemoglobin (Bld) [Mass/Vol] 11.0 g/dL Low 11.5-15.5 [facility] Comment on above: Order Comment: Speci men Type: BLOOD SPECIMEN Ordering Facility: [facility] Address: [address] [place] [address] Performed By: #### 2 4321-2, 35236-7, #### [facility] CLIA [id number] [address] MCH (RBC) [Entitic mass] 26.4 pg Normal 26.0-34.0 [facility] Comment on above: Order Comment: Speci men Type: BLOOD SPECIMEN Ordering Facility: [facility] Address: [address] [place] [address] Performed By: #### 2 432-2, 49335-0, #### [facility] CLIA [id number] [address] MCHC (RBC) [Mass/Vol] 31.3 g/dL Normal 30.5-36.0 [facility] Comment on above: Order Comment: Speci men Type: BLOOD SPECIMEN Ordering Facility: [facility] Address: [address] [place] [address] Performed By: #### 2 4321-2, 99075-5, #### [facility] CLIA [id number] [address] OF [facility] MCV (RBC) [Entitic vol] 84.4 fL Normal 80.0-100.0 [facility] Comment on above: Order Comment: Speci men Type: BLOOD SPECIMEN Ordering Facility: [facility] Address: [address] [place] [address] Performed By: #### 2 4321-2, 59200-1, #### [facility] CLIA [id number] [address] Nucleated RBC (Bld) [#/Vol] 10*3/uL Normal <0.01 [facility] Comment on above: Order Comment: Speci men Type: BLOOD SPECIMEN Ordering Facility: [facility] Address: [address] [place] [address] Performed By: #### 2 4321-2, 80288-7, #### [facility] CLIA [id number] [address] [place] [address] [place] Platelet mean volume (Bld) [Entitic vol] 10.1 fL Normal 9.0-12.7 [facility] Comment on above: Order Comment: Speci men Type: BLOOD SPECIMEN Ordering Facility: [facility] Address: [address] [place] [address] Performed By: #### 2 4321-2, 02519-6, #### [facility] CLIA [id number] [address] [place] Platelets (Bld) [#/Vol] 294 10*3/uL Normal 150-400 [facility] Comment on above: Order Comment: Speci men Type: BLOOD SPECIMEN Ordering Facility: [facility] Address: [address] [place] [address] Performed By: #### 2 4321-2, 38153-4, #### [facility] CLIA [id number] [address] [place] RBC (Bld) [#/Vol] 4.16 10*6/uL Normal 3.90-5.20 [facility] Comment on above: Order Comment: Speci men Type: BLOOD SPECIMEN Ordering Facility: [facility] Address: [address] [place] [address] Performed By: #### 2 4321-2, 72973-9, #### [facility] CLIA [id number] [address] [place] WBC (Bld) [#/Vol] 5.63 10*3/uL Normal 3.70-11.00 [facility] Comment on above: Order Comment: Speci men Type: BLOOD SPECIMEN Ordering Facility: [facility] Address: [address] [place] [address] Performed By: #### 2 1-2, 51379-3, #### [facility] CLIA [id number] [address] [place] [facility] CBC panel Auto (Bld)on 06-16 Erythrocyte distribution width (RBC) [Ratio] 15.4 % High 11.5-15.0 [facility] Comment on above: Order Comment: Speci men Type: BLOOD SPECIMEN Ordering Facility: [facility] Address: [address] [place] [address] Performed By: #### 2 4321-2, 02151-7, #### [facility] CLIA [id number] [address] Hematocrit (Bld) [Volume fraction] 34.9 % Low 36.0-46.0 [facility] Comment on above: Order Comment: Speci men Type: BLOOD SPECIMEN Ordering Facility: [facility] Address: [address] [place] [address] Performed By: #### 2 1-2, 49769-7, #### [facility] CLIA [id number] [address] STATES [place] [facility] Hemoglobin (Bld) [Mass/Vol] 10.9 g/dL Low 11.5-15.5 [facility] Comment on above: Order Comment: Speci men Type: BLOOD SPECIMEN Ordering Facility: [facility] Address: [address] [place] [address] Performed By: #### 2 4321-2, 52237-7, #### [facility] CLIA [id number] [address] STATES [place] [facility] MCH (RBC) [Entitic mass] 26.4 pg Normal 26.0-34.0 [facility] Comment on above: Order Comment: Speci men Type: BLOOD SPECIMEN Ordering Facility: [facility] Address: [address] [place] [address] Performed By: #### 2 4321-2, 63579-2, #### [facility] CLIA [id number] [address] MCHC (RBC) [Mass/Vol] 31.2 g/dL Normal 30.5-36.0 [facility] Comment on above: Order Comment: Speci men Type: BLOOD SPECIMEN Ordering Facility: [facility] Address: [address] [place] [address] Performed By: #### 2 4321-2, 23055-4, #### [facility] CLIA [id number] [address] MCV (RBC) [Entitic vol] 84.5 fL Normal 80.0-100.0 [facility] Comment on above: Order Comment: Speci men Type: BLOOD SPECIMEN Ordering Facility: [facility] Address: [address] [place] [address] Performed By: #### 2 1-2, 10495-5, #### [facility] CLIA [id number] [address] Nucleated RBC (Bld) [#/Vol] 10*3/uL Normal <0.01 [facility] Comment on above: Order Comment: Speci men Type: BLOOD SPECIMEN Ordering Facility: [facility] Address: [address] [place] [address] Performed By: #### 2 4321-2, 22198-0, #### [facility] CLIA [id number] [address] Platelet mean volume (Bld) [Entitic vol] 9.8 fL Normal 9.0-12.7 [facility] Comment on above: Order Comment: Speci men Type: BLOOD SPECIMEN Ordering Facility: [facility] Address: [address] [place] [address] Performed By: #### 2 4321-2, 14172-4, #### [facility] CLIA [id number] [address] [place] Platelets (Bld) [#/Vol] 274 10*3/uL Normal 150-400 [facility] Comment on above: Order Comment: Speci men Type: BLOOD SPECIMEN Ordering Facility: [facility] Address: [address] [place] [address] Performed By: #### 2 4321-2, 95236-9, #### [facility] CLIA [id number] [address] [place] RBC (Bld) [#/Vol] 4.13 10*6/uL Normal 3.90-5.20 [facility] Comment on above: Order Comment: Speci men Type: BLOOD SPECIMEN Ordering Facility: [facility] Address: [address] [place] [address] Performed By: #### 2 4321-2, 20164-9, #### [facility] CLIA [id number] [address] OF [facility] WBC (Bld) [#/Vol] 6.06 10*3/uL Normal 3.70-11.00 [facility] Comment on above: Order Comment: Speci men Type: BLOOD SPECIMEN Ordering Facility: [facility] Address: [address] [place] [address] Performed By: #### 2 4321-2, 43606-2, #### [facility] CLIA [id number] [address] OF [facility] CBC panel Auto (Bld)on 06-15 Erythrocyte distribution width (RBC) [Ratio] 15.4 % High 11.5-15.0 [facility] Comment on above: Order Comment: Speci men Type: BLOOD SPECIMEN Ordering Facility: [facility] Address: [address] [place] [address] Performed By: #### 2 4321-2, 15602-0, #### [facility] CLIA [id number] [address] [place] Hematocrit (Bld) [Volume fraction] 33.9 % Low 36.0-46.0 [facility] Comment on above: Order Comment: Speci men Type: BLOOD SPECIMEN Ordering Facility: [facility] Address: [address] [place] [address] Performed By: #### 2 4321-2, 20068-8, #### [facility] CLIA [id number] [address] [place] Hemoglobin (Bld) [Mass/Vol] 10.6 g/dL Low 11.5-15.5 [facility] Comment on above: Order Comment: Speci men Type: BLOOD SPECIMEN Ordering Facility: [facility] Address: [address] [place] [address] Performed By: #### 2 4321-2, 89516-7, #### [facility] CLIA [id number] [address] MCH (RBC) [Entitic mass] 26.2 pg Normal 26.0-34.0 [facility] Comment on above: Order Comment: Speci men Type: BLOOD SPECIMEN Ordering Facility: [facility] Address: [address] [place] [address] Performed By: #### 2 4321-2, 33176-8, #### [facility] CLIA [id number] [address] [place] MCHC (RBC) [Mass/Vol] 31.3 g/dL Normal 30.5-36.0 [facility] Comment on above: Order Comment: Speci men Type: BLOOD SPECIMEN Ordering Facility: [facility] Address: [address] [place] [address] Performed By: #### 2 4321-2, 99001-3, #### [facility] CLIA [id number] [address] OF [facility] MCV (RBC) [Entitic vol] 83.9 fL Normal 80.0-100.0 [facility] Comment on above: Order Comment: Speci men Type: BLOOD SPECIMEN Ordering Facility: [facility] Address: [address] [place] [address] Performed By: #### 2 4321-2, 79010-3, #### [facility] CLIA [id number] 1 [place] [address] [place] Nucleated RBC (Bld) [#/Vol] 10*3/uL Normal <0.01 [facility] Comment on above: Order Comment: Speci men Type: BLOOD SPECIMEN Ordering Facility: [facility] Address: [address] [place] [address] Performed By: #### 2 4321-2, 40282-6, #### [facility] CLIA [id number] [address] [place] Platelet mean volume (Bld) [Entitic vol] 9.9 fL Normal 9.0-12.7 [facility] Comment on above: Order Comment: Speci men Type: BLOOD SPECIMEN Ordering Facility: [facility] Address: [address] [place] [address] Performed By: #### 2 1-2, 65791-7, #### [facility] CLIA [id number] [address] [place] Platelets (Bld) [#/Vol] 280 10*3/uL Normal 150-400 [facility] Comment on above: Order Comment: Speci men Type: BLOOD SPECIMEN Ordering Facility: [facility] Address: [address] [place] [address] Performed By: #### 2 4321-2, 31306-3, #### [facility] CLIA [id number] 1 [place] [address] [place] RBC (Bld) [#/Vol] 4.04 10*6/uL Normal 3.90-5.20 [facility] Comment on above: Order Comment: Speci men Type: BLOOD SPECIMEN Ordering Facility: [facility] Address: [address] [place] [address] [place] [address] Performed By: #### 2 4321-2, 94936-1, 37398-4 #### [facility] CLIA [id number] 1 [place] [id number] [facility] [place] WBC (Bld) [#/Vol] 5.80 10*3/uL Normal 3.70-11.00 [facility] Comment on above: Order Comment: Speci men Type: BLOOD SPECIMEN Ordering Facility: [facility] Address: [address] [place] [address] Performed By: #### 2 4321-2, 45997-1, #### [facility] CLIA [id number] 1 [place] [id number] [facility] THERAPY NTon 06-15-2024 THERAPY NT HNO ID: [id number] Author: MEHREEN MANCERA PT Service: Physical Therapy Author Type: Physical Therapist Type: Therapy (PT/OT/Speech/Resp) Filed: 06/15/2024 16:13 Note Text: Physical Therapy Treatment Summary SERVICE DATE: 06/15/2024 SERVICE TIME: 1518 to 1547 ROOM: [place] [address] PT 6 Clicks Score: 13 DISCHARGE RECOMMENDATIONS [...] Lack of coordination-other TREATMENT INTERVENTIONS Therapeutic Activity (69467), Neuromuscular Reeducation (43060) Timed Code Treatment (minutes): 29 Skilled Treatment Time (minutes): 29 Therapeutic Activity (36699) Treatment Minutes: 10 $ Therapeutic Activity (95870) Billed Units: 1 unit Neuromuscular Reeducation (85362) Treatment Minutes: 19 $ Neuromuscular Reeducation (52594) Billed Units: 1 unit Sitting balance and [...] to control (more content not included)... Normal [facility] CBC panel Auto (Bld)on 06-14 Erythrocyte distribution width (RBC) [Ratio] 15.5 % High 11.5-15.0 [facility] Comment on above: Order Comment: Speci isabella Type: BLOOD SPECIMENOrdering Facility: [facility] Address: [address] [place] [address] Performed By: #### 5 8410-2 ####[facility] [id number] [place] [address] [place] Hematocrit (Bld) [Volume fraction] 34.8 % Low 36.0-46.0 [facility] Comment on above: Order Comment: Speci isabella Type: BLOOD SPECIMENOrdering Facility: [facility] Address: [address] [place] [address] Performed By: #### 5 8410-2 ####[facility] [id number] [place] [address] [place] Hemoglobin (Bld) [Mass/Vol] 11.0 g/dL Low 11.5-15.5 [facility] Comment on above: Order Comment: Speci men Type: BLOOD SPECIMENOrdering Facility: [facility] Address: [address] [place] [address] Performed By: #### 5 8410-2 ####[facility] [id number] [address] MCH (RBC) [Entitic mass] 26.6 pg Normal 26.0-34.0 [facility] Comment on above: Order Comment: Speci men Type: BLOOD SPECIMENOrdering Facility: [facility] Address: [address] [place] [address] Performed By: #### 5 8410-2 ####[facility] [id number] [address] OF [facility] MCHC (RBC) [Mass/Vol] 31.6 g/dL Normal 30.5-36.0 [facility] Comment on above: Order Comment: Speci men Type: BLOOD SPECIMENOrdering Facility: [facility] Address: [address] [place] [address] Performed By: #### 5 8410-2 ####[facility] [id number] [address] MCV (RBC) [Entitic vol] 84.3 fL Normal 80.0-100.0 [facility] Comment on above: Order Comment: Speci men Type: BLOOD SPECIMENOrdering Facility: [facility] Address: [address] [place] [address] Performed By: #### 5 8410-2 ####[facility] [id number] [address] Nucleated RBC (Bld) [#/Vol] 10*3/uL Normal <0.01 [facility] Comment on above: Order Comment: Speci men Type: BLOOD SPECIMENOrdering Facility: [facility] Address: [address] [place] [address] Performed By: #### 5 8410-2 ####[facility] [id number] [address] Platelet mean volume (Bld) [Entitic vol] 9.7 fL Normal 9.0-12.7 [facility] Comment on above: Order Comment: Speci men Type: BLOOD SPECIMENOrdering Facility: [facility] Address: [address] [place] [address] Performed By: #### 5 8410-2 ####[facility] [id number] [address] OF [facility] Platelets (Bld) [#/Vol] 278 10*3/uL Normal 150-400 [facility] Comment on above: Order Comment: Speci men Type: BLOOD SPECIMENOrdering Facility: [facility] Address: [address] [place] [address] Performed By: #### 5 8410-2 ####[facility]IA [id number] [address] OF [facility] RBC (Bld) [#/Vol] 4.13 10*6/uL Normal 3.90-5.20 [facility] Comment on above: Order Comment: Speci men Type: BLOOD SPECIMENOrdering Facility: [facility] Address: [address] [place] [address] Performed By: #### 5 8410-2 ####[facility] [id number] [address] OF [facility] WBC (Bld) [#/Vol] 4.70 10*3/uL Normal 3.70-11.00 [facility] Comment on above: Order Comment: Speci men Type: BLOOD SPECIMENOrdering Facility: [facility] Address: [address] [place] [address] Performed By: #### 5 8410-2 ####[facility] [id number] [address] OF [facility] NURSING PROGon 06-14-2024 NURSING PROG HNO ID: [id number] Author: JOSE JERNIGAN, RN Service: Nursing Author Type: Registered Nurse [...] - ordered XR and lidocaine patch Normal [facility] XR SHLDR >/=3V AP/JASON AP/OTH [...] portions of the right lung are clear. Dynamite Reclaimer: PSCB Transcribe Date/Time: Jun 14 2024 1:33P Dictated by : DEV WELCH MD This examination was interpreted and the report reviewed and electronically signed by: DEV WELCH MD on Jun 14 2024 1:35PM EST [id number] Normal [facility] ALLIED HEALTHon 06-13-2024 ALLIED HEALTH HNO ID: [id number] Author: ALFRED DALEY Chaplain Service: ? Author Type: Sports Management Internship Type: Allied Health Filed: 06/13/2024 14:38 Note Text: SPIRITUAL CARE ASSESSMENT SERVICE DATE: 06/13/2024 SERVICE TIME: 11:53 Visit with: Patient Length of visit (minutes): 5 Temple / Spirituality: Pt did not Disc. Reason: [...] 13, 2024 TIME: 2:31 PM PAGER/CONTACT #: [phone] [facility] Basic metabolic 2000 panelon 06-13-2024 Anion gap [Moles/Vol] 11 mmol/L Normal 8-15 [facility] Comment on above: Order Comment: Speci men Type: BLOOD SPECIMEN Ordering Facility[facility] Address: [address] [place] [address] Performed By: #### 2 4321-2, 08381-2, #### [facility] CLIA [id number] [address] [place] [address] [place] Calcium [Mass/Vol] 8.9 mg/dL Normal 8.5-10.2 [facility] Comment on above: Order Comment: Speci men Type: BLOOD SPECIMEN Ordering Facility: [facility] Address: [address] [place] [address] Performed By: #### 2 4321-2, 26210-8, #### [facility] CLIA [id number] 1 [place] [address] [place] Chloride [Moles/Vol] 101 mmol/L Normal 98-107 [facility] Comment on above: Order Comment: Speci men Type: BLOOD SPECIMEN Ordering Facility: [facility] Address: [address] [place] [address] Performed By: #### 2 4321-2, 32901-5, #### [facility] CLIA [id number] 1 [place] [address] [place] CO2 [Moles/Vol] 24 mmol/L Normal 22-30 [facility] Comment on above: Order Comment: Speci men Type: BLOOD SPECIMEN Ordering Facility: [facility] Address: [address] [place] [address] Performed By: #### 2 4321-2, 68436-6, #### [facility] CLIA [id number] 1 [place] [address] [place] Creatinine [Mass/Vol] 1.04 mg/dL High 0.58-0.96 [facility] Comment on above: Order Comment: Rhina mason Type: BLOOD SPECIMEN Ordering Facility: [facility] Address: [address] [place] [address] Performed By: #### 2 4321-2, 89582-7, #### [facility] CLIA [id number] [address] OF [facility] Creatinine and Glomerular filtration rate.predicted panel (S/P/Bld) 53 mL/min/1.73m??? Low >=60 [facility] Comment on above: Order Comment: Rhina mason Type: BLOOD SPECIMEN Ordering Facility: [facility] Address: [address] [place] [address] Result Comment: Isa mated Glomerular Filtration Rate [...] actual GFR. Performed By: #### 2 4321-2, 97196-4, #### [facility] CLIA [id number] 1 [place] [address] [place] Glucose [Mass/Vol] 95 mg/dL Normal 74-99 [facility] Comment on above: Order Comment: Rhina mason Type: BLOOD SPECIMEN Ordering Facility: [facility] Address: [address] [place] [address] Result Comment: The [place] [employer] (ADA) provides guidance for cutoff [...] Standards of Medical Care in Diabetes 2016, [place] [employer]. Diabetes Care. 2016.39(Suppl 1). Performed By: #### 2 4321-2, 32740-5, #### [facility] CLIA [id number] [address] [place] Potassium [Moles/Vol] 3.8 mmol/L Normal 3.7-5.1 [facility] Comment on above: Order Comment: Speci men Type: BLOOD SPECIMEN Order[facility] Facility[facility] Address: [facility] [place] [address] Performed By: #### 2 4321-2, 70431-5, #### [facility] CLIA [id number] [address] STATES OF [facility] Sodium [Moles/Vol] 136 mmol/L Normal 136-144 [facility] Comment on above: Order Comment: Speci men Type: BLOOD SPECIMEN Ordering Facility[facility] Address: [address] [place] [address] Performed By: #### 2 4321-2, 66336-4, #### [facility] CLIA [id number] [address] [place] Urea nitrogen [Mass/Vol] 16 mg/dL Normal 7-21 [facility] Comment on above: Order Comment: Speci men Type: BLOOD SPECIMEN Ordering Facility[facility] Address: [address] [place] [address] Performed By: #### 2 4321-2, 01076-5, #### [facility] CLIA [id number] [address] [place] CBC panel Auto (Bld)on 06-13 Erythrocyte distribution width (RBC) [Ratio] 15.5 % High 11.5-15.0 [facility] Comment on above: Order Comment: Speci men Type: BLOOD SPECIMENOrdering Facility: [facility] Address: [address] [place] [address] Performed By: #### 5 8410-2 ####[facility]ORY[facility] [id number] [address] Hematocrit (Bld) [Volume fraction] 33.1 % Low 36.0-46.0 [facility] Comment on above: Order Comment: Speci men Type: BLOOD SPECIMENOrdering Facility: [facility] Address: [address] [place] [address] Performed By: #### 5 8410-2 ####[facility]ORY[facility]IA [id number] [address] OF [facility] Hemoglobin (Bld) [Mass/Vol] 10.2 g/dL Low 11.5-15.5 [facility] Comment on above: Order Comment: Speci men Type: BLOOD SPECIMENOrdering Facility: [facility] Address: [address] [place] [address] Performed By: #### 5 8410-2 ####[facility]ORY[facility]IA [id number] [address] MCH (RBC) [Entitic mass] 26.5 pg Normal 26.0-34.0 [facility] Comment on above: Order Comment: Speci men Type: BLOOD SPECIMENOrdering Facility: [facility] Address: [address] [place] [address] Performed By: #### 5 8410-2 ####[facility]ORYCLIA [id number] [address] [place] MCHC (RBC) [Mass/Vol] 30.8 g/dL Normal 30.5-36.0 [facility] Comment on above: Order Comment: Speci men Type: BLOOD SPECIMENOrdering Facility: [facility] Address: [address] [place] [address] Performed By: #### 5 8410-2 ####[facility]ORY[facility] [id number] [address] MCV (RBC) [Entitic vol] 86.0 fL Normal 80.0-100.0 [facility] Comment on above: Order Comment: Speci men Type: BLOOD SPECIMENOrdering Facility: [facility] Address: [address] [place] [address] Performed By: #### 5 8410-2 ####[facility]ORYCLIA [id number] [address] Nucleated RBC (Bld) [#/Vol] 10*3/uL Normal <0.01 [facility] Comment on above: Order Comment: Speci men Type: BLOOD SPECIMENOrdering Facility: [facility] Address: [address] [place] [address] Performed By: #### 5 8410-2 ####[facility]ORYCLIA [id number] [address] [place] Platelet mean volume (Bld) [Entitic vol] 9.6 fL Normal 9.0-12.7 [facility] Comment on above: Order Comment: Speci men Type: BLOOD SPECIMENOrdering Facility: [facility] Address: [address] [place] [address] Performed By: #### 5 8410-2 ####[facility]ORYCLIA [id number] [address] [place] Platelets (Bld) [#/Vol] 287 10*3/uL Normal 150-400 [facility] Comment on above: Order Comment: Speci men Type: BLOOD SPECIMENOrdering Facility: [facility] Address: [address] [place] [address] Performed By: #### 5 8410-2 ####[facility]ORYCLIA [id number] [address] [place] RBC (Bld) [#/Vol] 3.85 10*6/uL Low 3.90-5.20 [facility] Comment on above: Order Comment: Speci men Type: BLOOD SPECIMENOrdering Facility: [facility] Address: [address] [place] [address] Performed By: #### 5 8410-2 ####[facility]ORYCLIA [id number] [address] [place] WBC (Bld) [#/Vol] 4.79 10*3/uL Normal 3.70-11.00 [facility] Comment on above: Order Comment: Speci men Type: BLOOD SPECIMENOrdering Facility: [facility] Address: [address] [place] [address] Performed By: #### 5 8410-2 ####[facility]ORYCLIA [id number] [address] aPTT PPPon 06-13-2024 aPTT Coag (PPP) [Time] 51.3 s High 23.0-32.4 [facility] Comment on above: Order Comment: Speci men Type: BLOOD SPECIMEN Ordering Facility[facility] Address: [address] [place] [address] Performed By: #### 2 4321-2, 43270-3, 83562-0 #### [facility] CLIA [id number] [address] aPTT Coag (PPP) [Time] 89.0 s High 23.0-32.4 [facility] Comment on above: Order Comment: Speci men Type: BLOOD SPECIMEN Order[facility] Address: [address] [place] [address] Performed By: #### 2 4321-2, 86369-8, #### [facility] CLIA [id number] [address] ALLIED HEALTHon 06-12-2024 ALLIED HEALTH HNO ID: [id number] Author: HELLEN SEVILLA RT(R) Service: Radiology Author Type: Technologist [...] PATIENT PRESENTS WITH AN IMPLANTABLE OR ATTACHED RENAL NURSE: No RADIOLOGY DEPARTMENT: CT; Exam(s) Completed: Brain PERIPHERAL IV DATA: Not applicable SIGNED BY: RT Reji(R) June 12, 2024 9:[address] [facility] CBC W Auto Differential pane l (Bld)on 06-12-2024 Basophils (Bld) [#/Vol] 0.03 10*3/uL Normal <0.11 [facility] Comment on above: Order Comment: Speci men Type: BLOOD SPECIMEN Order[facility] Address: [address] [place] [address] Performed By: #### 2 4321-2, 82674-6, #### [facility] CLIA [id number] [address] [place] Basophils/100 WBC (Bld) 0.6 % Normal [facility] Comment on above: Order Comment: Speci men Type: BLOOD SPECIMEN Order[facility] Address: [address] [place] [address] Performed By: #### 2 1-2, 37292-9, #### [facility] CLIA [id number] [address] [place] [address] [place] Differential cell count method Nom (Bld) Auto Normal [facility] Comment on above: Order Comment: Speci men Type: BLOOD SPECIMEN Ordering Facility[facility] Address: [address] [place] [address] Performed By: #### 2 4321-2, 40859-4, #### [facility] CLIA [id number] [address] [place] [address] [place] Eosinophils (Bld) [#/Vol] 0.05 10*3/uL Normal <0.46 [facility] Comment on above: Order Comment: Speci men Type: BLOOD SPECIMEN Ordering Facility: [facility] Address: [address] [place] [address] Performed By: #### 2 4321-2, 68720-4, #### [facility] CLIA [id number] [address] STATES [facility] Eosinophils/100 WBC (Bld) 1.0 % Normal [facility] Comment on above: Order Comment: Speci men Type: BLOOD SPECIMEN Ordering Facility[facility] Address: [address] [place] [address] Performed By: #### 2 4321-2, 96490-1, #### [facility] CLIA [id number] [address] [place] Erythrocyte distribution width (RBC) [Ratio] 15.6 % High 11.5-15.0 [facility] Comment on above: Order Comment: Speci men Type: BLOOD SPECIMEN [facility] Address: [address] [place] [address] Performed By: #### 2 1-2, 18961-5, #### [facility] CLIA [id number] [address] [place] Hematocrit (Bld) [Volume fraction] 34.6 % Low 36.0-46.0 [facility] Comment on above: Order Comment: Speci men Type: BLOOD SPECIMEN [facility] Address: [address] [place] [address] Performed By: #### 2 4321-2, 42184-9, #### [facility] CLIA [id number] [address] [place] Hemoglobin (Bld) [Mass/Vol] 10.6 g/dL Low 11.5-15.5 [facility] Comment on above: Order Comment: Speci men Type: BLOOD SPECIMEN Order[facility] Facility[facility] Address: [address] [place] [address] Performed By: #### 2 4321-2, 91146-0, #### [facility] CLIA [id number] [address] [place] Immature granulocytes (Bld) [#/Vol] 10*3/uL Normal <0.10 [facility] Comment on above: Order Comment: Speci men Type: BLOOD SPECIMEN Ordering Facility[facility] Address: [address] [place] [address] Performed By: #### 2 4321-2, 13842-9, #### [facility] CLIA [id number] [address] Immature granulocytes/100 WBC (Bld) 0.2 % Normal [facility] Comment on above: Order Comment: Speci men Type: BLOOD SPECIMEN Ordering Facility[facility] Address: [address] [place] [address] Performed By: #### 2 4321-2, 10788-0, #### [facility] CLIA [id number] [address] [place] Lymphocytes (Bld) [#/Vol] 1.65 10*3/uL Normal 1.00-4.00 [facility] Comment on above: Order Comment: Speci men Type: BLOOD SPECIMEN Ordering Facility[facility] Address: [address] [place] [address] Performed By: #### 2 4321-2, 49420-1, #### [facility] CLIA [id number] [address] [place] Lymphocytes/100 WBC (Bld) 31.9 % Normal [facility] Comment on above: Order Comment: Speci men Type: BLOOD SPECIMEN Ordering Facility[facility] Address: [address] [place] [address] Performed By: #### 2 4321-2, 38101-6, #### [facility] CLIA [id number] [address] [place] MCH (RBC) [Entitic mass] 26.2 pg Normal 26.0-34.0 [facility] Comment on above: Order Comment: Speci men Type: BLOOD SPECIMEN Ordering Facility[facility] Address: [address] [place] [address] Performed By: #### 2 1-2, 11824-5, #### [facility] CLIA [id number] [address] [place] [facility] (RBC) [Mass/Vol] 30.6 g/dL Normal 30.5-36.0 [facility] Comment on above: Order Comment: Speci men Type: BLOOD SPECIMEN Ordering Facility: [facility] Address: [address] [place] [address] Performed By: #### 2 4320-2, 78651-5, #### [facility] CLIA [id number] [address] OF [facility] MCV (RBC) [Entitic vol] 85.6 fL Normal 80.0-100.0 [facility] Comment on above: Order Comment: Speci men Type: BLOOD SPECIMEN Ordering Facility: [facility] Address: [address] [place] [address] Performed By: #### 2 4320-2, 28525-8, #### [facility] CLIA [id number] [address] [facility] Monocytes (Bld) [#/Vol] 0.46 10*3/uL Normal <0.87 [facility] Comment on above: Order Comment: Speci men Type: BLOOD SPECIMEN Ordering Facility: [facility] Address: [address] [place] [address] Performed By: #### 2 1-2, 06499-6, #### [facility] CLIA [id number] [address] Monocytes/100 WBC (Bld) 8.9 % Normal A [facility] Comment on above: Order Comment: Speci men Type: BLOOD SPECIMEN Ordering Facility: [facility] Address: [address] [place] [address] Performed By: #### 2 1-2, 63427-8, #### [facility] CLIA [id number] 1 [place] [address] [place] Neutrophils (Bld) [#/Vol] 2.97 10*3/uL Normal 1.45-7.50 [facility] Comment on above: Order Comment: Speci men Type: BLOOD SPECIMEN Ordering Facility: [facility] Address: [address] [place] [address] Performed By: #### 2 1-2, 61189-1, #### [facility] CLIA [id number] [address] [place] Neutrophils/100 WBC (Bld) 57.4 % Normal [facility] Comment on above: Order Comment: Speci men Type: BLOOD SPECIMEN Ordering Facility: [facility] Address: [address] [place] [address] Performed By: #### 2 4320-2, 02439-6, #### [facility] CLIA [id number] 1 [place] [address] [place] Nucleated RBC (Bld) [#/Vol] 10*3/uL Normal <0.01 [facility] Comment on above: Order Comment: Speci men Type: BLOOD SPECIMEN Ordering Facility: [facility] Address: [address] [place] [address] Performed By: #### 2 4320-2, 48941-3, #### [facility] CLIA [id number] [address] [place] Nucleated RBC/100 WBC (Bld) [Ratio] 0.0 /[address] [facility] Comment on above: Order Comment: Speci men Type: BLOOD SPECIMEN Ordering Facility: [facility] Address: [address] [place] [address] Performed By: #### 2 1-2, 59232-3, #### [facility] CLIA [id number] [address] [place] Platelet mean volume (Bld) [Entitic vol] 9.6 fL Normal 9.0-12.7 [facility] Comment on above: Order Comment: Speci men Type: BLOOD SPECIMEN Ordering Facility: [facility] Address: [address] [place] [address] Performed By: #### 2 4321-2, 47587-9, #### [facility] CLIA [id number] 1 [place] [address] [place] Platelets (Bld) [#/Vol] 314 10*3/uL Normal 150-400 [facility] Comment on above: Order Comment: Speci men Type: BLOOD SPECIMEN Ordering Facility: [facility] Address: [address] [place] [address] Performed By: #### 2 4321-2, 70186-7, #### [facility] CLIA [id number] [address] [place] RBC (Bld) [#/Vol] 4.04 10*6/uL Normal 3.90-5.20 [facility] Comment on above: Order Comment: Speci men Type: BLOOD SPECIMEN Ordering Facility: [facility] Address: [address] [place] [address] Performed By: #### 2 4321-2, 31465-5, #### [facility] CLIA [id number] 1 [place] [address] [place] WBC (Bld) [#/Vol] 5.17 10*3/uL Normal 3.70-11.00 [facility] Comment on above: Order Comment: Speci men Type: BLOOD SPECIMEN Ordering Facility: [facility] Address: [address] [place] [address] Performed By: #### 2 4321-2, 44330-8, #### [facility] CLIA [id number] [address] [facility] CONSULTon 06-12-2024 CONSULT HNO ID: [id number] Author: MINA TLABERT MD Service: Cardiovascular Disease Author Type: Physician Type: Consults Filed: 06/12/2024 10:40 Note Text: CARDIOLOGY CONSULTATION- [facility] Patient Name: Mel Castillo : 1940 PRIMARY CARE PHYSICIAN: Jared Evans MD [address] [place] [address] REFERRING PHYSICIAN No referring provider defined for [...] presumptive 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[facility] with history of prior stroke PAD [...] [facility] and was [...] Orthostatic Pulse (more content not included)... Normal [facility] CONSULT PROGon 06-12-2024 CONSULT PROG HNO ID: [id number] Author: NICOLAS TESFAYE APRN.BUSINESS EMPLOYMENT SPECIALIST Service: Neurology General Author Type: Nurse Practitioner [...] NIHSS Score: 1 (06/12/24 0945 : Nicolas Tesfaye APRN.BUSINESS EMPLOYMENT SPECIALIST) 1 MENTAL STATUS: Alert, oriented to person, [...] and Prevention (personally reviewed by Nicolas Tesfaye APRN.BUSINESS EMPLOYMENT SPECIALIST): Daily Rounding Date: 06/12/24 Daily Rounding Time: [...] Mel Hernandez (more content not included)... Normal [facility] CT BRAIN WO IVCONon 06-12-20 CT BRAIN WO IVCON * * *Final Report* * * DATE OF EXAM: Jun 12 2024 9:25AM [facility] 0504 - CT BRAIN WO [...] intracranial hemorrhage. Chronic changes, as detailed above. Dynamite Reclaimer: PSCB Transcribe Date/Time: Jun 12 2024 9:42A Dictated by : LYDIA EVANS MD This examination was interpreted and the report reviewed and electronically signed by: LYDIA EVANS MD on Jun 12 2024 9:47AM EST [id number] Normal [facility] Comprehensive metabolic 2000 panelon 06-12-2024 Albumin [Mass/Vol] 3.6 g/dL Low 3.9-4.9 [facility] Comment on above: Order Comment: Rhina mason Type: BLOOD SPECIMEN Ordering Facility: [facility] Address: [address] [place] [address] Performed By: #### 2 4321-2, 30890-9, 82119-7 #### [facility] CLIA [id number] 1 [place] [address] [place] [facility] ALP [Catalytic activity/Vol] 88 U/L Normal 34-123 [facility] Comment on above: Order Comment: Rhina mason Type: BLOOD SPECIMEN Ordering Facility: [facility] Address: [address] [place] [address] Performed By: #### 2 4321-2, 63180-8, #### [facility] CLIA [id number] [address] ALT With P-5'-P [Catalytic activity/Vol] 6 U/L Low 7-38 [facility] Comment on above: Order Comment: Speci men Type: BLOOD SPECIMEN Ordering Facility: [facility] Address: [address] [place] [address] Performed By: #### 2 4321-2, 41341-6, #### [facility] CLIA [id number] [address] OF [facility] Anion gap [Moles/Vol] 13 mmol/L Normal 8-15 [facility] Comment on above: Order Comment: Speci men Type: BLOOD SPECIMEN Ordering Facility: [facility] Address: [address] [place] [address] Performed By: #### 2 4321-2, 65530-7, #### [facility] CLIA [id number] [address] AST With P-5'-P [Catalytic activity/Vol] 9 U/L Low 13-35 [facility] Comment on above: Order Comment: Speci men Type: BLOOD SPECIMEN Ordering Facility: [facility] Address: [address] [place] [address] Performed By: #### 2 4321-2, 51620-1, #### [facility] CLIA [id number] [address] OF [facility] Bilirubin [Mass/Vol] 0.6 mg/dL Normal 0.2-1.3 [facility] Comment on above: Order Comment: Speci men Type: BLOOD SPECIMEN Ordering Facility: [facility] Address: [address] [place] [address] Performed By: #### 2 4321-2, 91468-4, #### [facility] CLIA [id number] [address] [place] Calcium [Mass/Vol] 9.2 mg/dL Normal 8.5-10.2 [facility] Comment on above: Order Comment: Speci men Type: BLOOD SPECIMEN Ordering Facility: [facility] Address: [address] [place] [address] Performed By: #### 2 4321-2, 48802-3, #### [facility] CLIA [id number] 1 [place] [address] [place] Chloride [Moles/Vol] 101 mmol/L Normal 98-107 [facility] Comment on above: Order Comment: Speci men Type: BLOOD SPECIMEN Ordering Facility: [facility] Address: [address] [place] [address] Performed By: #### 2 4321-2, 64350-6, #### [facility] CLIA [id number] [address] [place] CO2 [Moles/Vol] 23 mmol/L Normal 22-30 [facility] Comment on above: Order Comment: Speci men Type: BLOOD SPECIMEN Ordering Facility: [facility] Address: [address] [place] [address] Performed By: #### 2 4321-2, 42304-5, #### [facility] CLIA [id number] [address] [place] Creatinine [Mass/Vol] 1.02 mg/dL High 0.58-0.96 [facility] Comment on above: Order Comment: Speci men Type: BLOOD SPECIMEN Ordering Facility: [facility] Address: [address] [place] [address] Performed By: #### 2 4321-2, 18158-7, #### [facility] CLIA [id number] [address] Creatinine and Glomerular filtration rate.predicted panel (S/P/Bld) 54 mL/min/1.73m??? Low >=60 [facility] Comment on above: Order Comment: Rhina mason Type: BLOOD SPECIMEN Ordering Facility: [facility] Address: [address] [place] [address] Result Comment: Isa mated Glomerular Filtration Rate [...] actual GFR. Performed By: #### 2 4321-2, 87909-4, #### [facility] CLIA [id number] 1 [place] [address] [place] Glucose [Mass/Vol] 109 mg/dL High 74-99 [facility] Comment on above: Order Comment: Rhina mason Type: BLOOD SPECIMEN Ordering Facility: [facility] Address: [address] [place] [address] Result Comment: The [place] [employer] (ADA) provides guidance for cutoff [...] Standards of Medical Care in Diabetes 2016, [place] [employer]. Diabetes Care. 2016.39(Suppl 1). Performed By: #### 2 4321-2, 25421-8, #### [facility] CLIA [id number] 1 [place] [address] [place] Potassium [Moles/Vol] 4.0 mmol/L Normal 3.7-5.1 [facility] Comment on above: Order Comment: Rhina mason Type: BLOOD SPECIMEN Ordering Facility: [facility] Address: [address], [place] [address] Performed By: #### 2 4321-2, 87109-4, #### [facility] CLIA [id number] 1 [place] [address] [place] Protein [Mass/Vol] 6.4 g/dL Normal 6.3-8.0 [facility] Comment on above: Order Comment: Speci men Type: BLOOD SPECIMEN Ordering Facility: [facility] Address: [address] [place] [address] Performed By: #### 2 4321-2, 51611-3, #### [facility] CLIA [id number] 1 [place] [address] [place] Sodium [Moles/Vol] 137 mmol/L Normal 136-144 [facility] Comment on above: Order Comment: Speci men Type: BLOOD SPECIMEN Ordering Facility: [facility] Address: [address] [place] [address] Performed By: #### 2 4321-2, 12043-8, #### [facility] CLIA [id number] 1 [place] [address] [place] Urea nitrogen [Mass/Vol] 12 mg/dL Normal 7-21 [facility] Comment on above: Order Comment: Speci men Type: BLOOD SPECIMEN Ordering Facility: [facility] Address: [address] [place] [address] Performed By: #### 2 4321-2, 40548-6, #### [facility] CLIA [id number] [address] [place] Magnesium SerPl-mCncon 06-12 Magnesium [Mass/Vol] 2.3 mg/dL Normal 1.7-2.3 [facility] Comment on above: Order Comment: Speci men Type: BLOOD SPECIMEN Ordering Facility: [facility] Address: [address] [place] [address] Performed By: #### 2 4321-2, 33163-3, #### [facility] CLIA [id number] [address] [place] NURSING PROGon 06-12-2024 NURSING PROG HNO ID: [id number] Author: ROBINSON VELÁSQUEZ RN Service: ? Author Type: Registered Nurse [...] Next PTT draw due at [address] [facility] PT EDon 06-12-2024 PT ED HNO ID: [id number] Author: DOT PETERSON [facility] Service: Pharmacy Author Type: ? Type: Patient Education Filed: 06/12/2024 16:17 Note Text: Attestation signed by Dot Peterson [facility] at 06/12/2024 4:17 PM I have reviewed the documentation below and agree with the plan. A communication has been documented in the handoff tool for hopeful follow-up tomorrow. Dot Peterson, [facility] ANTICOAGULATION EDUCATION Patient Name: Mel Castillo [...] questions. Patient aware of copay. Nayana Rowan, Senior Software Development Manager Normal [facility] THERAPY NTon 06-12-2024 THERAPY NT HNO ID: [id number] Author: LATOYA LONG PT Service: Physical Therapy Author Type: Physical Therapist Type: Therapy (PT/OT/Speech/Resp) Filed: 06/12/2024 15:33 Note Text: Physical Therapy Treatment Summary SERVICE DATE: 06/12/2024 SERVICE TIME: 1445 to 1509 ROOM: [place] [address] PT 6 Clicks Score: 13 DISCHARGE RECOMMENDATIONS [...] Lack of coordination-other TREATMENT INTERVENTIONS Therapeutic Activity (91797), Neuromuscular Reeducation (87246) Timed Code Treatment (minutes): 23 Skilled Treatment Time (minutes): 23 Therapeutic Activity (39194) Treatment Minutes: 10 $ Therapeutic Activity (66446) Billed Units: 1 unit Training and assist with bed mobility, transfers and taking steps in place and side steps along the EOB with the walker. Neuromuscular Reeducation (93525) Treatment Minutes: 13 $ Neuromuscular Reeducation (80271) Billed Units: 1 unit Instructed pt in [...] position andrea (more content not included)... Normal [facility] THERAPY NT HNO ID: [id number] Author: SHANNAN SEGOVIA OTR/[place] Service: Occupational Therapy Author Type: Occupational Therapist Type: Therapy (PT/OT/Speech/Resp) Filed: 06/12/2024 08:50 Note Text: Occupational Therapy Evaluation Summary SERVICE DATE: 06/12/2024 SERVICE TIME: 810 to 833 ROOM: [place] [address] OT 6 Clicks Score: 15 DISCHARGE RECOMMENDATIONS [...] and signs-other TREATMENT INTERVENTIONS Evaluation, Therapeutic Activity (76657) Timed Code Treatment (minutes): 8 Skilled Treatment Time (minutes): 23 $ Evaluation - Moderate (21189) Billed Units: 1 unit Therapeutic Activity (85409) Treatment Minutes: 8 $ Therapeutic Activity (49742) Billed Units: 1 unit TRAINING AND EDUCATION PROVIDED Assistive Device Use, Bed Mobility, Benefits of In-Hospital Mobility, Cognitive Stimulation Activities, Discharge Planning, Disease Specific Education, Role of Occupational Therapy, Safety/Judgment, Sitting Balance to Improve [place] with ADLs/Self-Care THERAPEUTIC SKILLS USED Activity Dosing, [...] Stand By (more content not included)... Normal [facility] aPTT PPPon 06-12-2024 aPTT Coag (PPP) [Time] 56.1 s High 23.0-32.4 [facility] Comment on above: Order Comment: Speci men Type: BLOOD SPECIMEN Ordering Facility: [facility] Address: [address] [place] [address] Performed By: #### 2 4321-2, 88967-0, #### [facility] CLIA [id number] [address] aPTT Coag (PPP) [Time] 79.0 s High 23.0-32.4 [facility] Comment on above: Order Comment: Speci men Type: BLOOD SPECIMEN Ordering Facility: [facility] Address: [address] [place] [address] Performed By: #### 1 4979-9 #### [facility] CLIA [id number] [address] aPTT Coag (PPP) [Time] 123.9 s High 23.0-32.4 [facility] Comment on above: Order Comment: Speci men Type: BLOOD SPECIMEN Ordering Facility: [facility] Address: [address] [place] [address] Performed By: #### 2 4321-2, 86433-5, #### [facility] CLIA [id number] 1 [place] [address] [facility] aPTT Coag (PPP) [Time] 117.3 s High 23.0-32.4 [facility] Comment on above: Order Comment: Speci men Type: BLOOD SPECIMEN Ordering Facility: [facility] Address: [address] [place] [address] Performed By: #### 2 4321-2, 08823-0, #### [facility] CLIA [id number] 1 [place] [address] [facility] 36on 06-11-2024 36 [facility] HEALTHon 06-11-2024 ALLIED [facility]ALTH HNO ID: [id number] Author: FABIO KERR Tech Service: ? Author Type: Curing Oven Tender Type: Allied Health Filed: 06/11/2024 14:16 Note [...] PATIENT PRESENTS WITH AN IMPLANTABLE OR ATTACHED RENAL NURSE: No RADIOLOGY DEPARTMENT: MR; Exam(s) Completed: Head: Routine Brain [place] MRA MRA Carotid PERIPHERAL IV DATA: Not applicable SIGNED BY: Anne Marie Carrillo June 11, 2024 2:[address] [facility] CBC W Auto Differential pane l (Bld)on 06-11-2024 Basophils (Bld) [#/Vol] 0.03 10*3/uL Normal <0.11 [facility] Comment on above: Order Comment: Speci men Type: BLOOD SPECIMEN Ordering Facility: [facility] Address: [address] [place] [address] Performed By: #### 2 4321-2, 47884-6, #### [facility] CLIA [id number] [address] [place] [facility] Basophils/100 WBC (Bld) 0.4 % Normal A [facility] Comment on above: Order Comment: Speci men Type: BLOOD SPECIMEN Ordering Facility: [facility] Address: [address] [place] [address] Performed By: #### 2 4321-2, 08795-3, #### [facility] CLIA [id number] [address] Differential cell count method Nom (Bld) Auto Normal [facility] Comment on above: Order Comment: Speci men Type: BLOOD SPECIMEN Ordering Facility: [facility] Address: [address] [place] [address] Performed By: #### 2 4320-2, 25137-2, #### [facility] CLIA [id number] [address] [place] Eosinophils (Bld) [#/Vol] 10*3/uL Normal <0.46 [facility] Comment on above: Order Comment: Speci men Type: BLOOD SPECIMEN Ordering Facility: [facility] Address: [facility] [place] [address] Performed By: #### 2 4320-2, 00625-8, #### [facility] CLIA [id number] [address] [place] Eosinophils/100 WBC (Bld) 0.3 % Normal [facility] Comment on above: Order Comment: Speci men Type: BLOOD SPECIMEN Ordering Facility: [facility] Address: [address] [place] [address] Performed By: #### 2 4321-2, 13126-2, #### [facility] CLIA [id number] [address] [place] [address] [place] Erythrocyte distribution width (RBC) [Ratio] 15.6 % High 11.5-15.0 [facility] Comment on above: Order Comment: Speci men Type: BLOOD SPECIMEN Ordering Facility: [facility] Address: [address] [place] [address] Performed By: #### 2 4321-2, 58657-7, #### [facility] CLIA [id number] [address] [place] Hematocrit (Bld) [Volume fraction] 37.6 % Normal 36.0-46.0 [facility] Comment on above: Order Comment: Speci men Type: BLOOD SPECIMEN Ordering Facility: [facility] Address: [address] [place] [address] Performed By: #### 2 4321-2, 49961-8, #### [facility] CLIA [id number] [address] [place] Hemoglobin (Bld) [Mass/Vol] 11.5 g/dL Normal 11.5-15.5 [facility] Comment on above: Order Comment: Speci men Type: BLOOD SPECIMEN Ordering Facility: [facility] Address: [address] [place] [address] Performed By: #### 2 1-2, 12326-5, #### [facility] CLIA [id number] [address] [place] Immature granulocytes (Bld) [#/Vol] 0.03 10*3/uL Normal <0.10 [facility] Comment on above: Order Comment: Speci men Type: BLOOD SPECIMEN Ordering Facility: [facility] Address: [address] [place] [address] Performed By: #### 2 4321-2, 70987-0, #### [facility] CLIA [id number] [address] [place] Immature granulocytes/100 WBC (Bld) 0.4 % Normal [facility] Comment on above: Order Comment: Speci men Type: BLOOD SPECIMEN Ordering Facility: [facility] Address: [address] [place] [address] Performed By: #### 2 4321-2, 01855-5, #### [facility] CLIA [id number] [address] Lymphocytes (Bld) [#/Vol] 1.26 10*3/uL Normal 1.00-4.00 [facility] Comment on above: Order Comment: Speci men Type: BLOOD SPECIMEN Ordering Facility: [facility] Address: [address] [place] [address] Performed By: #### 2 4321-2, 30024-7, #### [facility] CLIA [id number] [address] Lymphocytes/100 WBC (Bld) 16.9 % Normal [facility] Comment on above: Order Comment: Speci men Type: BLOOD SPECIMEN Ordering Facility: [facility] Address: [address] [place] [address] Performed By: #### 2 4321-2, 66113-5, #### [facility] CLIA [id number] [address] [place] MCH (RBC) [Entitic mass] 26.6 pg Normal 26.0-34.0 [facility] Comment on above: Order Comment: Speci men Type: BLOOD SPECIMEN Ordering Facility: [facility] Address: [address] [place] [address] Performed By: #### 2 4321-2, 79839-1, #### [facility] CLIA [id number] [address] [place] MCHC (RBC) [Mass/Vol] 30.6 g/dL Normal 30.5-36.0 [facility] Comment on above: Order Comment: Speci men Type: BLOOD SPECIMEN Ordering Facility: [facility] Address: [address] [place] [address] Performed By: #### 2 4321-2, 56670-4, #### [facility] CLIA [id number] [address] [place] MCV (RBC) [Entitic vol] 87.0 fL Normal 80.0-100.0 A [facility] Comment on above: Order Comment: Speci men Type: BLOOD SPECIMEN Ordering Facility: [facility] Address: [address] [place] [address] Performed By: #### 2 1-2, 14357-4, #### [facility] CLIA [id number] [address] Monocytes (Bld) [#/Vol] 0.68 10*3/uL Normal <0.87 [facility] Comment on above: Order Comment: Speci men Type: BLOOD SPECIMEN Ordering Facility: [facility] Address: [address] [place] [address] Performed By: #### 2 4320-2, 96176-1, #### [facility] CLIA [id number] [address] Monocytes/100 WBC (Bld) 9.1 % Normal A [facility] Comment on above: Order Comment: Speci men Type: BLOOD SPECIMEN Ordering Facility: [facility] Address: [address] [place] [address] Performed By: #### 2 4320-2, 64880-1, #### [facility] CLIA [id number] [address] [place] Neutrophils (Bld) [#/Vol] 5.43 10*3/uL Normal 1.45-7.50 [facility] Comment on above: Order Comment: Speci men Type: BLOOD SPECIMEN Ordering Facility: [facility] Address: [address] [place] [address] Performed By: #### 2 1-2, 74237-4, #### [facility] CLIA [id number] [address] [place] Neutrophils/100 WBC (Bld) 72.9 % Normal [facility] Comment on above: Order Comment: Speci men Type: BLOOD SPECIMEN [facility] [facility] Address: [address] [place] [address] Performed By: #### 2 4321-2, 91575-8, #### [facility] CLIA [id number] [address] Nucleated RBC (Bld) [#/Vol] 10*3/uL Normal <0.01 [facility] Comment on above: Order Comment: Speci men Type: BLOOD SPECIMEN Ordering Facility: [facility] Address: [address] [place] [address] Performed By: #### 2 1-2, 87042-2, #### [facility] CLIA [id number] [address] STATES OF [facility] Nucleated RBC/100 WBC (Bld) [Ratio] 0.0 /[address] [facility] Comment on above: Order Comment: Speci men Type: BLOOD SPECIMEN Ordering Facility: [facility] Address: [address] [place] [address] Performed By: #### 2 1-2, 70343-0, #### [facility] CLIA [id number] [address] [place] Platelet mean volume (Bld) [Entitic vol] 9.5 fL Normal 9.0-12.7 [facility] Comment on above: Order Comment: Speci men Type: BLOOD SPECIMEN Ordering Facility: [facility] Address: [address] [place] [address] Performed By: #### 2 4321-2, 65252-8, #### [facility] CLIA [id number] [address] [place] Platelets (Bld) [#/Vol] 329 10*3/uL Normal 150-400 [facility] Comment on above: Order Comment: Speci men Type: BLOOD SPECIMEN Ordering Facility: [facility] Address: [address] [place] [id number] Performed By: #### 2 4321-2, 32956-1, 65722-2 #### [facility] CLIA [id number] [address] STATES OF [facility] RBC (Bld) [#/Vol] 4.32 10*6/uL Normal 3.90-5.20 [facility] Comment on above: Order Comment: Speci men Type: BLOOD SPECIMEN Ordering Facility: [facility] Address: [address] [place] [address] Performed By: #### 2 4321-2, 31999-9, 98760-5 #### [facility] CLIA [id number] [address] OF [facility] WBC (Bld) [#/Vol] 7.45 10*3/uL Normal 3.70-11.00 [facility] Comment on above: Order Comment: Speci men Type: BLOOD SPECIMEN Ordering Facility: [facility] Address: [address] [place] [address] Performed By: #### 2 4321-2, 05754-1, 62456-7 #### [facility] CLIA [id number] [address] CONSULTon 06-11-2024 CONSULT HNO ID: [id number] Author: JENNY WALLACE MD Service: Neurology General [...] cannot ambulate. Pre-admission Pre-morbid mRS: Premorbid Modified Mesha Score: 0 - No symptoms at all [...] Vital Signs: (more content not included)... Normal [facility] CONSULT HNO ID: [id number] Author: TOÑO MANZO MD Service: Urology Author [...] discussed with the Patient or Patient's Authorized Gang Mower Operator. As applicable, any other physician, advance practice provider, medical student, or other health professional student that will be observing or involved in the sensitive examination for educational or training purposes was discussed with the Patient or Authorized Gang Mower Operator. The Patient or Authorized Gang Mower Operator has agreed to proceed with the sensitive [...] lesion. Consider follow-up renal CT/MR for characterization. Dynamite Reclaimer: DEVEN Transcribe D (more content not included)... Normal [facility] CONSULT PROGon 06-11-2024 CONSULT PROG HNO ID: [id number] Author: CARL PERSAUD RPh Service: Pharmacy Author [...] [facility] CONSULT PROG HNO ID: [id number] Author: CARL PERSAUD RPh Service: Pharmacy Author [...] education: No Signature: Carl Persaud RPh Normal [facility] CT ABD/PEL W IVCONon 024 CT ABD/PEL W IVCON * * *Final Report* * * DATE OF EXAM: Jun 11 2024 3:07AM [facility] 0530 - CT ABD/PEL W [...] to bilateral greater trochanters, similar to prior. Catering Convention Services Manager (topogram) images: No additional findings. IMPRESSION: 1. Mild bilateral hydroureteronephrosis to the pelvic brim without evidence of ureterolithiasis. 2. Indeterminate left renal lesion. Consider follow-up renal CT/MR for characterization. Dynamite Reclaimer: DEVEN Transcribe Date/Time: Jun 11 2024 3:09A Dictated by : RAF AYALA MD This examination was interpreted and the report reviewed and electronically signed by: RAF AYALA MD on Jun 11 2024 3:40AM EST [id number] Normal [facility] CT BRAIN WO IVCONon 06-11-20 CT BRAIN WO IVCON * * *Final Report* * * DATE OF EXAM: Jun 11 2024 3:05AM [facility] 0504 - CT BRAIN WO [...] changes and small remote right occipital infarct. Dynamite Reclaimer: DEVEN Transcribe Date/Time: Jun 11 2024 3:05A Dictated by : RIN LANE MD This examination was interpreted and the report reviewed and electronically signed by: RIN LANE MD on Jun 11 2024 3:16AM EST [id number] Normal [facility] ECHO WITH AGITATED SALINE CO NTRASTon 06-11-2024 ECHO WITH AGITATED SALINE CONTRAST Echocardiography Report: Transthoracic Echo [facility] Date of service: 06/11/2024 11:20:46 AM HOSPITAL Ordering physician: DON EDWARDS Indication: TIA Technologist: Dinora Fields [facility] Interpreting physician: Nando Costa [...] * * Final * * * CC [email or web address] Medical Image : [id number] ISUID [facility] ED NOTEon 06-11-2024 ED NOTE HNO ID: [id number] Author: GISSELL CARRINGTON RN Service: Emergency Medicine Author Type: Registered Nurse Type: ED Notes Filed: 06/11/2024 05:58 Note Text: Gave report to assigned RN on 2099. Assigned RN is ready to receive patient at this time. Normal [facility] ED NOTE HNO ID: [id number] Author: GISSELL CARRINGTON RN Service: Emergency Medicine Author Type: Registered Nurse Type: ED Notes Filed: 06/11/2024 00:40 Note Text: Dr. Mendoza at bedside placing a US IV at this time. Normal [facility] HIGH SENSITIVITY TROPONIN T (SECOND)on 06-11-2024 Troponin T.cardiac High sensitivity method [Mass/Vol] 14 ng/L High <12 [facility] Comment on above: Order Comment: Speci men Type: BLOOD SPECIMEN Ordering Facility: [facility] Address: [address] [place] [address] Performed By: #### 2 4321-2, 16855-5, #### [facility] CLIA [id number] [address] HIGH SENSITIVITY TROPONIN T (THIRD) 3 HRS AFTER INITIALon 06-11-2024 Troponin T.cardiac High sensitivity method [Mass/Vol] 14 ng/L High <12 [facility] Comment on above: Order Comment: Speci men Type: BLOOD SPECIMEN Ordering Facility: [facility] Address: [address] [place] [address] Performed By: #### 2 4321-2, 06274-2, #### [facility] CLIA [id number] [address] [place] HISTORY PHYSICALon HISTORY PHYSICAL HNO ID: [id number] Author: BASSETT, DON, DO Service: Hospital Medicine Author Type: Physician Type: H&P Filed: 06/11/2024 14:14 Note Text: DEPARTMENT OF HOSPITAL MEDICINE HISTORY AND PHYSICAL EXAM SERVICE DATE: 06/11/2024 SERVICE TIME: 10:25 AM Primary Care Physician: Jared Evans MD, MD NIGHT AND WEEKEND COVERAGE: JENNIE COVERAGE: From 7am - 7pm, please call [phone] After 7pm, please call cross cover pager #[phone] Subjective CHIEF COMPLAINT: dizziness with vomiting, slurred [...] Drains, and Airways Line Duration Peripheral 06/11/24 [facility] Left Antecubital 20 Gauge <1 day Drain Duration External Collection Device 06/11/24 0250 [facility] <1 day Reviewed lines and needs to be continued: REASONS: Telemetry DATA: Diagnostic tests reviewed for today's visit: Most recent lab (more content not included)... Normal [facility] MRA BRAIN WO IVCONon 024 MRA BRAIN WO IVCON * * *Final Report* * * DATE OF EXAM: Jun 11 2024 3:52PM [facility] [place] - MRA BRAIN WO IVCON / PROCEDURE REASON: Neuro deficit, acute, stroke suspected * * * * Physician Interpretation * * * * EXAMINATION: MRI BRAIN WO IVCON, MRA BRAIN WO IVCON, MRA CAROTID WO IVCON CLINICAL HISTORY: Neuro deficit, acute, stroke suspected TECHNIQUE: Routine noncontrast MRI brain protocol including diffusion images. Intracranial and carotid 3D dsar-lv-zelbmi MRA. 3D maximum intensity projection images were [...] Patency: Bilateral Dominance: Left INTRACRANIAL MRA: The cabazon of [place] is patent without significant stenosis. 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 IMPRESSION: Motion degraded study. 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 No hemorrhagic transformation or significant mass effect. Unremarkable carotid MRA. 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 Dynamite Reclaimer: [facility] Transcribe Date/Time: Jun 11 2024 3:54P Dictated by : ESTHER MCKEON MD This examination was interpreted and the report reviewed and electronically signed by: ESTHER MCKEON MD on Jun 11 2024 4:13PM EST [id number] Normal [facility] MRA CAROTID WO IVCONon 06-11 MRA CAROTID WO IVCON * * *Final Report* * * DATE OF EXAM: Jun 11 2024 3:52PM [facility] [place] - MRA CAROTID WO IVCON / PROCEDURE REASON: Neuro deficit, acute, stroke suspected * * * * Physician Interpretation * * * * EXAMINATION: MRI BRAIN WO IVCON, MRA BRAIN WO IVCON, MRA CAROTID WO IVCON CLINICAL HISTORY: Neuro deficit, acute, stroke suspected TECHNIQUE: Routine noncontrast MRI brain protocol including diffusion images. Intracranial and carotid 3D xknn-hd-sxkzuo MRA. 3D maximum intensity projection images were [...] Patency: Bilateral Dominance: Left INTRACRANIAL MRA: The cabaz[place] of [place] is patent without significant stenosis. 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 IMPRESSION: Motion degraded study. 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 No hemorrhagic transformation or significant mass effect. Unremarkable carotid MRA. 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 Dynam[facility]claimer[facility] Transcribe Date/Time: Jun 11 2024 3:54P Dictated by : ESTHER MCKEON MD This examination was interpreted and the report reviewed and electronically signed by: ESTHER MCKEON MD on Jun 11 2024 4:13PM EST [id number] Normal [facility] MRI BRAIN WO IVCONon 024 MRI BRAIN WO IVCON * * *Final Report* * * DATE OF EXAM: Jun 11 2024 3:52PM [facility] [place] - MRI BRAIN WO IVCON / PROCEDURE REASON: stroke * * * * Physician Interpretation * * * * EXAMINATION: MRI BRAIN WO IVCON, MRA BRAIN WO IVCON, MRA CAROTID WO IVCON CLINICAL HISTORY: Neuro deficit, acute, stroke suspected TECHNIQUE: Routine noncontrast MRI brain protocol including diffusion images. Intracranial and carotid 3D xwlm-mk-gppcmn MRA. 3D maximum intensity projection images were [...] Patency: Bilateral Dominance: Left INTRACRANIAL MRA: The cabazon of [place] is patent without significant stenosis. 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 IMPRESSION: Motion degraded study. 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 No hemorrhagic transformation or significant mass effect. Unremarkable carotid MRA. 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 Dynamite Reclaimer: DEVEN Transcribe Date/Time: Jun 11 2024 3:54P Dictated by : ESTHER MCKEON MD This examination was interpreted and the report reviewed and electronically signed by: ESTHER MCKEON MD on Jun 11 2024 4:13PM EST [id number] Normal [facility] PT panel Coag (PPP)on 2023 INR Coag (PPP) [Relative time] 1.2 {INR} Normal 0.9-1.3 [facility] Comment on above: Order Comment: Rhina mason Type: BLOOD SPECIMEN Ordering Facility: [facility] Address: [address] [place] [address] Result Comment: Mayra min K Antagonist (VKA) Therapeutic Range: INR 2 to 3 (Target INR of 2.5) Note: For patients treated with VKA drugs, such as warfarin, the [place] [employer] 2012 Guideline recommends [...] GH, et al. Chest 2012, 141:7S-47S Daren RA et al. [facility] 2017, 70: 252-289 Performed By: #### 2 4321-2, 68325-6, #### [facility] CLIA [id number] [address] [place] PT Coag (PPP) [Time] 12.6 s Normal 9.7-13.0 [facility] Comment on above: Order Comment: Rhina mason Type: BLOOD SPECIMEN Ordering Facility: [facility] Address: [address] [place] [id number] Performed By: #### 2 4321-2, 85605-8, 79174-7 #### [facility] CLIA [id number] [address] [place] THERAPY NTon 06-11-2024 THERAPY NT HNO ID: [id number] Author: BASILIA MAGALLANES, CCC-MANAGER PRACTICE Service: Speech/Swallow Author Type: Speech Language Pathologist Type: Therapy (PT/OT/Speech/Resp) Filed: 06/11/2024 09:44 Note Text: Speech Therapy Clinical Swallow Evaluation SERVICE DATE: 06/11/2024 SERVICE TIME: 915 to 930 ROOM: [place] [address] IMPRESSION: Functional oropharyngeal phases of swallowing: without [...] Skilled Need Interventions Provided: Clinical Swallow Evaluation (51058) $ Clinical Swallow Evaluation (19824) Billed Units: 1 unit Training and Education [...] for this therapy evaluation/treatment. SIGNATURE: Basilia Magallanes CCC-MANAGER PRACTICE PATIENT NAME: Mel Castillo DATE: June 11, 2024 TIME: 9:[address] [facility] THERAPY NT HNO ID: [id number] Author: MEHREEN MANCERA PT Service: Physical Therapy Author Type: Physical Therapist Type: Therapy (PT/OT/Speech/Resp) Filed: 06/11/2024 09:27 Note Text: Physical Therapy Evaluation Summary SERVICE DATE: 06/11/2024 SERVICE TIME: 08 to 0842 ROOM: [id number] PT 6 Clicks Score: 18 DISCHARGE RECOMMENDATIONS [...] and signs-other TREATMENT INTERVENTIONS Evaluation, Canalith Repositioning (10362) Skilled Treatment Time (minutes): 37 $ Evaluation-Moderate (34728) Billed Units: 1 unit $ Canalith Repositioning (09061) Billed Units: 1 unit Repositioning maneuver for [...] due to blind L eye Positional Testing: [place]-Hallpike, Left, Horizontal Canals, Left Eris-Hallpike, Left: Note: pt with vertigo pattern of [...] 3 Times (more content not included)... Normal [facility] Urinalysis complete panel (U )on 06-11-2024 Bilirubin Ql (U) Negative Normal Negative [facility] Comment on above: Order Comment: Speci men Type: URINE SPECIMENOrdering Facility: [facility] Address: [address] [place] [address] Performed By: #### 2 4356-8 ####[facility] [id number] [address] [place] Clarity (Unsp spec) Clear Normal Clear [facility] Comment on above: Order Comment: Speci men Type: URINE SPECIMENOrdering Facility: [facility] Address: [address] [place] [address] Performed By: #### 2 4356-8 ####[facility] [id number] [address] [place] Color (U) Light Yellow Normal yellow [facility] Comment on above: Order Comment: Speci men Type: URINE SPECIMENOrdering Facility: [facility] Address: [address] [place] [address] Performed By: #### 2 4356-8 ####[facility] [id number] [address] [place] Glucose Test strip (U) [Mass/Vol] Negative Normal Trace, Negative [facility] Comment on above: Order Comment: Speci men Type: URINE SPECIMENOrdering Facility: [facility] Address: [address] [place] [address] Performed By: #### 2 4356-8 ####[facility] [id number] [address] [place] Hemoglobin Ql (U) Trace Normal Negative, Trace [facility] Comment on above: Order Comment: Speci men Type: URINE SPECIMENOrdering Facility: [facility] Address: [address] [place] [address] Performed By: #### 2 4356-8 ####[facility] [id number] [address] Ketones Ql (U) Negative Normal Negative, Trace [facility] Comment on above: Order Comment: Speci men Type: URINE SPECIMENOrdering Facility: [facility] Address: [address] [place] [address] Performed By: #### 2 4356-8 ####[facility]IA [id number] [address] [place] Leukocyte esterase Test strip Ql (U) Negative Normal Negative, 25 Jose Luis/uL [facility] Comment on above: Order Comment: Speci men Type: URINE SPECIMENOrdering Facility: [facility] Address: [address] [place] [address] Performed By: #### 2 4356-8 ####[facility] [id number] [address] [place] Nitrite Ql (U) Negative Normal Negative [facility] Comment on above: Order Comment: Speci men Type: URINE SPECIMENOrdering Facility: [facility] Address: [address] [place] [address] Performed By: #### 2 4356-8 ####[facility]ORYCLIA [id number] [place] [address] [place] pH (U) [pH] High 5.0-8.0 [facility] Comment on above: Order Comment: Speci men Type: URINE SPECIMENOrdering Facility: [facility] Address: [address] [place] [address] Performed By: #### 2 4356-8 ####[facility]ORY[facility]IA [id number] [address] [place] Protein (U) [Mass/Vol] 1+ Abnormal Trace , Negative [facility] Comment on above: Order Comment: Speci men Type: URINE SPECIMENOrdering Facility: [facility] Address: [address] [place] [address] Performed By: #### 2 4356-8 ####[facility]ORYCLIA [id number] [place] [address] [place] RBC LM.HPF (Urine sed) [#/Area] 6-10 /HPF Abnormal 0-3 /HPF [facility] Comment on above: Order Comment: Speci men Type: URINE SPECIMENOrdering Facility: [facility] Address: [address] [place] [address] Performed By: #### 2 4356-8 ####[facility]ORYCLIA [id number] [place] [address] [place] Specific gravity (U) [Rel density] 1.039 High 1.005-1.030 [facility] Comment on above: Order Comment: Speci men Type: URINE SPECIMENOrdering Facility: [facility] Address: [address] [place] [address] Performed By: #### 2 4356-8 ####[facility]ORYCLIA [id number] [address] Urobilinogen Ql (U) Normal Normal Normal [facility] Comment on above: Order Comment: Speci men Type: URINE SPECIMENOrdering Facility: [facility] Address: [address] [place] [address] Performed By: #### 2 4356-8 ####[facility]CLIA [id number] [address] WBC LM.HPF (Urine sed) [#/Area] 0-5 /HPF Normal 0-5 /HPF [facility] Comment on above: Order Comment: Speci men Type: URINE SPECIMENOrdering Facility: [facility] Address: [address] [place] [address] Performed By: #### 2 4356-8 ####[facility]ORYCLIA [id number] [address] STATES [facility] aPTT PPPon 06-11-2024 aPTT Coag (PPP) [Time] 28.2 s Normal 23.0-32.4 [facility] Comment on above: Order Comment: Speci men Type: BLOOD SPECIMENOrdering Facility: [facility] Address: [address] [place] [address] Performed By: #### 1 4979-9 ####[facility]ORYCLIA [id number] [address] STATES [facility] aPTT Coag (PPP) [Time] 28.9 s Normal 23.0-32.4 [facility] Comment on above: Order Comment: Speci men Type: BLOOD SPECIMEN Ordering [facility] Address: [address] [place] [address] Performed By: #### 2 4321-2, 35012-9, 99857-5 #### [facility] CLIA [id number] [address] CBC W Auto Differential pane l (Bld)on 06-10-2024 Basophils (Bld) [#/Vol] 0.04 10*3/uL Normal <0.11 [facility] Comment on above: Order Comment: Speci men Type: BLOOD SPECIMEN [facility] Address: [address] [place] [address] Performed By: #### 2 4321-2, 14633-4, #### [facility] CLIA [id number] [address] Basophils/100 WBC (Bld) 0.7 % Normal A [facility] Comment on above: Order Comment: Speci men Type: BLOOD SPECIMEN Ordering Facility[facility] Address: [address] [place] [address] Performed By: #### 2 4321-2, 97636-8, #### [facility] CLIA [id number] [address] [place] Differential cell count method Nom (Bld) Auto Normal [facility] Comment on above: Order Comment: Speci men Type: BLOOD SPECIMEN Ordering Facility[facility] Address: [address] [place] [address] Performed By: #### 2 4321-2, 95968-1, #### [facility] CLIA [id number] [address] [place] Eosinophils (Bld) [#/Vol] 10*3/uL Normal <0.46 [facility] Comment on above: Order Comment: Speci men Type: BLOOD SPECIMEN [facility] Address: [address] [place] [address] Performed By: #### 2 4321-2, 10327-8, #### [facility] CLIA [id number] [address] OF [facility] Eosinophils/100 WBC (Bld) 0.2 % Normal [facility] Comment on above: Order Comment: Speci men Type: BLOOD SPECIMEN [facility] Address: [address] [place] [address] Performed By: #### 2 4321-2, 18922-5, #### [facility] CLIA [id number] [address] [place] Erythrocyte distribution width (RBC) [Ratio] 15.6 % High 11.5-15.0 [facility] Comment on above: Order Comment: Speci men Type: BLOOD SPECIMEN [facility] Address: [address] [place] [address] Performed By: #### 2 4321-2, 81049-4, #### [facility] CLIA [id number] [address] [place] Hematocrit (Bld) [Volume fraction] 37.5 % Normal 36.0-46.0 [facility] Comment on above: Order Comment: Speci men Type: BLOOD SPECIMEN Ordering [facility] Address: [address] [place] [address] Performed By: #### 2 4321-2, 28399-3, #### [facility] CLIA [id number] [address] [place] Hemoglobin (Bld) [Mass/Vol] 11.4 g/dL Low 11.5-15.5 [facility] Comment on above: Order Comment: Speci men Type: BLOOD SPECIMEN Ordering [facility] Address: [address] [place] [address] Performed By: #### 2 4321-2, 95602-6, #### [facility] CLIA [id number] [address] [place] Immature granulocytes (Bld) [#/Vol] 10*3/uL Normal <0.10 [facility] Comment on above: Order Comment: Speci men Type: BLOOD SPECIMEN [facility] Address: [address] [place] [address] Performed By: #### 2 4321-2, 70435-8, #### [facility] CLIA [id number] [address] [place] Immature granulocytes/100 WBC (Bld) 0.4 % Normal [facility] Comment on above: Order Comment: Speci men Type: BLOOD SPECIMEN Ordering [facility] Address: [address] [place] [address] Performed By: #### 2 4321-2, 32959-1, #### [facility] CLIA [id number] [address] [place] Lymphocytes (Bld) [#/Vol] 0.61 10*3/uL Low 1.00-4.00 [facility] Center Comment on above: Order Comment: Speci men Type: BLOOD SPECIMEN Ordering Facility: [facility] Address: [address] [place] [address] Performed By: #### 2 4321-2, 23636-7, #### [facility] CLIA [id number] [address] OF [facility] Lymphocytes/100 WBC (Bld) 10.8 % Normal [facility] Comment on above: Order Comment: Speci men Type: BLOOD SPECIMEN Ordering Facility: [facility] Address: [address] [place] [address] Performed By: #### 2 4321-2, 91080-3, #### [facility] CLIA [id number] [address] [place] MCH (RBC) [Entitic mass] 26.2 pg Normal 26.0-34.0 [facility] Comment on above: Order Comment: Speci men Type: BLOOD SPECIMEN Ordering Facility: [facility] Address: [address] [place] [address] Performed By: #### 2 4321-2, 56460-7, #### [facility] CLIA [id number] [address] [place] MCHC (RBC) [Mass/Vol] 30.4 g/dL Low 30.5-36.0 [facility] Comment on above: Order Comment: Speci men Type: BLOOD SPECIMEN Ordering Facility: [facility] Address: [address] [place] [address] Performed By: #### 2 4321-2, 73231-0, #### [facility] CLIA [id number] [address] [place] MCV (RBC) [Entitic vol] 86.2 fL Normal 80.0-100.0 A [facility] Comment on above: Order Comment: Speci men Type: BLOOD SPECIMEN Ordering Facility: [facility] Address: [address] [place] [address] Performed By: #### 2 4321-2, 04563-5, #### [facility] CLIA [id number] [address] [place] Monocytes (Bld) [#/Vol] 0.21 10*3/uL Normal <0.87 [facility] Comment on above: Order Comment: Speci men Type: BLOOD SPECIMEN Ordering Facility: [facility] Address: [address] [place] [address] Performed By: #### 2 4320-2, 25239-6, #### [facility] CLIA [id number] [address] [place] Monocytes/100 WBC (Bld) 3.7 % Normal A [facility] Comment on above: Order Comment: Speci men Type: BLOOD SPECIMEN Ordering Facility: [facility] Address: [address] [place] [address] Performed By: #### 2 4320-2, 38963-5, #### [facility] CLIA [id number] [address] [place] Neutrophils (Bld) [#/Vol] 4.78 10*3/uL Normal 1.45-7.50 [facility] Comment on above: Order Comment: Speci men Type: BLOOD SPECIMEN Ordering Facility: [facility] Address: [address] [place] [address] Performed By: #### 2 1-2, 83047-3, #### [facility] CLIA [id number] [address] [place] Neutrophils/100 WBC (Bld) 84.2 % Normal [facility] Comment on above: Order Comment: Speci men Type: BLOOD SPECIMEN Ordering Facility: [facility] Address: [address] [place] [address] Performed By: #### 2 4321-2, 66584-4, #### [facility] CLIA [id number] 1 [place] [address] [place] Nucleated RBC (Bld) [#/Vol] 10*3/uL Normal <0.01 [facility] Comment on above: Order Comment: Speci men Type: BLOOD SPECIMEN Ordering Facility: [facility] Address: [address] [place] [address] Performed By: #### 2 4321-2, 27440-3, #### [facility] CLIA [id number] [address] Nucleated RBC/100 WBC (Bld) [Ratio] 0.0 /[address] [facility] Comment on above: Order Comment: Speci men Type: BLOOD SPECIMEN Ordering Facility: [facility] Address: [address] [place] [address] Performed By: #### 2 4321-2, 14258-0, #### [facility] CLIA [id number] [address] [place] Platelet mean volume (Bld) [Entitic vol] 9.4 fL Normal 9.0-12.7 [facility] Comment on above: Order Comment: Speci men Type: BLOOD SPECIMEN Ordering Facility: [facility] Address: [address] [place] [address] Performed By: #### 2 4321-2, 60682-8, #### [facility] CLIA [id number] 1 [place] [address] [place] Platelets (Bld) [#/Vol] 330 10*3/uL Normal 150-400 [facility] Comment on above: Order Comment: Speci men Type: BLOOD SPECIMEN Ordering Facility: [facility] Address: [address] [place] [address] Performed By: #### 2 4321-2, 27290-5, 01191-4 #### [facility] CLIA [id number] [address] [place] RBC (Bld) [#/Vol] 4.35 10*6/uL Normal 3.90-5.20 [facility] Comment on above: Order Comment: Speci men Type: BLOOD SPECIMEN Ordering Facility: [facility] Address: [address] [place] [address] Performed By: #### 2 4321-2, 99507-4, 03867-0 #### [facility] CLIA [id number] [address] STATES OF [facility] WBC (Bld) [#/Vol] 5.67 10*3/uL Normal 3.70-11.00 [facility] Comment on above: Order Comment: Speci men Type: BLOOD SPECIMEN Ordering Facility: [facility] Address: [address] [place] [address] Performed By: #### 2 4321-2, 96253-0, 42399-7 #### [facility] CLIA [id number] [address] STATES OF [facility] Comprehensive metabolic 2000 panelon 06-10-2024 Albumin [Mass/Vol] 4.2 g/dL Normal 3.9-4.9 [facility] Comment on above: Order Comment: Speci men Type: BLOOD SPECIMENOrdering Facility: [facility] Address: [address] [place] [address] Performed By: #### 3 016-3, 32052-2, 3024-7, 51973-2 ####[facility] [id number] [address] [place] ALP [Catalytic activity/Vol] 99 U/L Normal 34-123 [facility] Comment on above: Order Comment: Speci men Type: BLOOD SPECIMENOrdering Facility: [facility] Address: [address] [place] [address] Performed By: #### 3 016-3, 97522-6, 3024-7, 86611-8 ####[facility] [id number] [address] STATES [facility] ALT With P-5'-P [Catalytic activity/Vol] 8 U/L Normal 7-38 [facility] Comment on above: Order Comment: Speci men Type: BLOOD SPECIMENOrdering Facility: [facility] Address: [address] [place] [address] Performed By: #### 3 016-3, 48387-3, 302-7, 89111-7 ####[facility]ORYCLIA [id number] [address] OF [facility] Anion gap [Moles/Vol] 12 mmol/L Normal 8-15 [facility] Comment on above: Order Comment: Speci men Type: BLOOD SPECIMENOrdering Facility: [facility] Address: [address] [place] [address] Performed By: #### 3 016-3, 01621-2, 3023-7, 80930-8 ####[facility]ORY[facility]IA [id number] [address] [place] With P-5'-P [Catalytic activity/Vol] 12 U/L Low 13-35 [facility] Comment on above: Order Comment: Speci men Type: BLOOD SPECIMENOrdering Facility: [facility] Address: [address] [place] [address] Performed By: #### 3 016-3, 92859-9, 302-7, 41829-1 ####[facility]ORY[facility]IA [id number] [place] [id number] [place] OF [facility] Bilirubin [Mass/Vol] 0.4 mg/dL Normal 0.2-1.3 [facility] Comment on above: Order Comment: Speci men Type: BLOOD SPECIMENOrdering Facility: [facility] Address: [address] [place] [address] Performed By: #### 3 016-3, 09955-8, 3024-7, 72799-7 ####[facility]ORYCLIA [id number] [place] [address] [place] Calcium [Mass/Vol] 9.5 mg/dL Normal 8.5-10.2 [facility] Comment on above: Order Comment: Speci men Type: BLOOD SPECIMENOrdering Facility: [facility] Address: [address] [place] [address] Performed By: #### 3 016-3, 67117-9, 7, 82979-3 ####[facility]ORYCLIA [id number] [place] [address] [place] Chloride [Moles/Vol] 101 mmol/L Normal 98-107 [facility] Comment on above: Order Comment: Speci men Type: BLOOD SPECIMENOrdering Facility: [facility] Address: [address] [place] [address] Performed By: #### 3 016-3, 34784-8, 3024-01, 96896-7 ####[facility]ORYCLIA [id number] [place] [address] [place] CO2 [Moles/Vol] 23 mmol/L Normal 22-30 [facility] Comment on above: Order Comment: Speci men Type: BLOOD SPECIMENOrdering Facility: [facility] Address: [address] [place] [address] Performed By: #### 3 016-3, 36653-7, 7, 52914-4 ####[facility]ORYCLIA [id number] [place] [address] [place] Creatinine [Mass/Vol] 0.87 mg/dL Normal 0.58-0.96 [facility] Comment on above: Order Comment: Speci men Type: BLOOD SPECIMENOrdering Facility: [facility] Address: [address] [place] [address] Performed By: #### 3 016-3, 72285-6, 7, 00003-3 ####[facility]ORYCLIA [id number] [place] [address] [place] Creatinine and Glomerular filtration rate.predicted panel (S/P/Bld) 66 mL/min/1.73m??? Normal >=60 [facility] Comment on above: Order Comment: Samirrobson mason Type: BLOOD SPECIMENOrdering Facility: [facility] Address: [address] [place] [address] Result Comment: Isa mated Glomerular Filtration Rate [...] actual GFR. Performed By: #### 3 016-3, 64766-5, 3024-7, 07048-5 ####[facility]ORYCLIA [id number] [place] [address] [place] Glucose [Mass/Vol] 157 mg/dL High 74-99 [facility] Comment on above: Order Comment: Rhina mason Type: BLOOD SPECIMENOrdering Facility: [facility] Address: [address] [place] [address] Result Comment: The [place] Diabetes Association (ADA) provides guidance for cutoff [...] Standards of Medical Care in Diabetes 2016, [place] Diabetes Association. Diabetes Care. 2016.39(Suppl 1). Performed By: #### 3 016-3, 65455-6, 3024-7, 13369-6 ####[facility]ORYCLIA [id number] [place] [id number] [place] Potassium [Moles/Vol] 4.3 mmol/L Normal 3.7-5.1 [facility] Comment on above: Order Comment: Speci men Type: BLOOD SPECIMENOrdering Facility: [facility] Address: [address] [place] [address] Performed By: #### 3 016-3, 03368-5, 3024-7, 50533-5 ####[facility]ORYCLIA [id number] [place] [address] [place] Protein [Mass/Vol] 7.1 g/dL Normal 6.3-8.0 [facility] Comment on above: Order Comment: Speci men Type: BLOOD SPECIMENOrdering Facility: [facility] Address: [address] [place] [address] Performed By: #### 3 016-3, 64737-8, 3023-7, 76273-6 ####[facility]ORYCLIA [id number] [address] STATES OF [facility] Sodium [Moles/Vol] 136 mmol/L Normal 136-144 [facility] Comment on above: Order Comment: Speci men Type: BLOOD SPECIMENOrdering Facility: [facility] Address: [address] [place] [address] Performed By: #### 3 016-3, 77939-6, 3027, 33323-0 ####[facility]ORYCLIA [id number] [place] [address] [place] Urea nitrogen [Mass/Vol] 14 mg/dL Normal 7-21 [facility] Comment on above: Order Comment: Speci men Type: BLOOD SPECIMENOrdering Facility: [facility] Address: [address] [place] [address] Performed By: #### 3 016-3, 64528-9, 302-7, 09856-5 ####[facility]ORYCLIA [id number] [place] [address] [place] ECG COMPLETEon 06-10-2024 ECG COMPLETE Ventricular Rate : 6 4 BPM QRS Duration : 90 ms Q-T Interval : 424 ms QTC Calculation(Bazett) : 437 ms Calculated R [place] : 56 degrees Calculated T [place] : 20 degrees ATRIAL FIBRILLATION ABNORMAL ECG NO PREVIOUS ECGS AVAILABLE Confirmed by SAKINA MELLO MD ([id number]) on 12/07/2024 10:44:28 PM NAME : MEL GUADARRAMA PID : [id number] : 1940 Gender : Female Race : ORD : [id number] Procedure Date : Jun 10 2024 23:35:14 Edit Date : Dec 07 2024 22:44:32 Diagnosis: ATRIAL FIBRILLATION ABNORMAL ECG NO PREVIOUS ECGS AVAILABLE Confirmed by SAKINA MELLO MD ([id number]) on 12/07/2024 10:44:28 PM Test Reason : Chest Pain Location : 4 : [facility] EM Overread By : SAKINA MELLO MD Edited By : SAKINA MELLO MD Referred By : , Acquired by : REGAN RODRIGES [facility] ED NOTEon 06-10-2024 ED NOTE HNO ID: [id number] Author: DAMARIS HERNANDEZ RN Service: ? Author Type: Registered Nurse Type: ED Notes Filed: 06/10/2024 23:06 Note Text: Bed: 36-ED Expected date: Expected time: Means of arrival: Comments: RAMESH [facility] ED PROV NOTEon 06-10-2024 ED PROV NOTE HNO ID: [id number] Author: THOMAS SERNA MD Service: Emergency Medicine [...] head to the left or right the [place]. No nystagmus noted vertical or lateral The [...] nausea vomiting. THOMAS SERNA 06/11/[address] [facility] ED PROV NOTE HNO ID: [id number] Author: THOMAS SERNA MD Service: Emergency Medicine Author Type: Resident Type: ED Provider Notes Filed: 06/12/2024 02:27 Note Text: Attestation signed by Thomas Serna MD at 06/12/2024 2:27 AM Attending Attestation Note: Hwatley findings confirmed. I evaluated the patient in [...] Labs Ord (more content not included)... Normal [facility] HIGH SENSITIVITY TROPONIN T (INITIAL)on 06-10-2024 Troponin T.cardiac High sensitivity method [Mass/Vol] 14 ng/L High <12 [facility] Comment on above: Order Comment: Rhina mason Type: BLOOD SPECIMENOrdering Facility: [facility] Address: [address] [place] [address] Performed By: #### L [id number] ####[facility]ATORYCLIA [id number] [place] [address] [place] HbA1c (Bld)on 06-10-2024 Average glucose Estimated from glycated hemoglobin (Bld) [Mass/Vol] 120 mg/dL Normal [facility] Comment on above: Order Comment: Rhina mason Type: BLOOD SPECIMEN [facility] Address: [address] [place] [address] Result Comment: eAG: (Estimated average glucose) is a calculated value from HgbA1c and is sales representative metals of the average blood glucose level in the last 2-3 month period. Performed By: #### 2 4321-2, 71321-6, 96664-3 #### [facility] CLIA [id number] [address] [place] [address] [place] HbA1c (Bld) [Mass fraction] 5.8 % High 4.3-5.6 [facility] Comment on above: Order Comment: Rhina mason Type: BLOOD SPECIMEN Order[facility] Address: [address] [place] [address] Result Comment: Amer [place] Diabetes Association guidelines indicate that patients with HgbA1c in the range 5.7-6.4% are at increased risk for development of diabetes, and intervention by lifestyle modification may be beneficial. HgbA1c greater or equal to 6.5% is considered diagnostic of diabetes. Performed By: #### 2 4321-2, 60946-2, 66020-7 #### [facility] CLIA [id number] [address] OF [facility] Lipid 1996 panelon 4 Cholesterol [Mass/Vol] 227 mg/dL High <200 [facility] Comment on above: Order Comment: Speci men Type: BLOOD SPECIMENOrdering Facility: [facility] Address: [address] [place] [address] Result Comment: <200 mg/dL, Desirable 200-239 mg/dL, Borderline high >239 mg/dL, High Performed By: #### 3 016-3, 77200-3, 3023-7, 55102-5 ####[facility]ORYCLIA [id number] [address] Cholesterol in HDL [Mass/Vol] 78 mg/dL Normal >39 [facility] Comment on above: Order Comment: Speci men Type: BLOOD SPECIMENOrdering Facility: [facility] Address: [address] [place] [address] Result Comment: 40-5 9 mg/dL, Acceptable >59 mg/dL, High: Negative risk factor for coronary heart disease <40 mg/dL, Low: Positive risk factor for coronary heart disease Performed By: #### 3 016-3, 33592-1, 3023-7, 41387-8 ####[facility]ORYCLIA [id number] [address] STATES [facility] Cholesterol in LDL [Mass/Vol] 139 mg/dL High <100 [facility] Comment on above: Order Comment: Speci men Type: BLOOD SPECIMENOrdering Facility: [facility] Address: [address] [place] [address] Result Comment: <100 mg/dL, Optimal 100-129 mg/dL, Near optimal/above optimal 130-159 mg/dL, Borderline high 160-189 mg/dL, High >189 mg/dL, Very high Secondary prevention optimal LDL Cholesterol levels are recommended to be < 70 mg/dL Performed By: #### 3 016-3, 78322-0, 3024-7, 80894-7 ####[facility]ORYCL[facility] [id number] [address] Cholesterol in LDL/Cholesterol in HDL [Mass ratio] 1.78 {ratio} Normal <2.54 [facility] Comment on above: Order Comment: Rhina mason Type: BLOOD SPECIMENOrdering Facility: [facility] Address: [address] [place] [address] Result Comment: Refe coriece: 1. National Cholesterol Education Program ATP III Guideline At-A-Glance Quick Desk Reference: National Heart, Lung, and Blood [place]. National Institutes of Health. 2001: NIH Publication No. 01-3305. 2. An International Atherosclerosis Society position paper: global recommendations for the management of dyslipidemia: executive summary, Atherosclerosis. 2014: 232(2):410-413. Performed By: #### 3 016-3, 59931-3, 3024-01, 61892-9 ####[facility]ATORYCLIA [id number] [address] Cholesterol in VLDL [Mass/Vol] 10 mg/dL Normal <30 [facility] Comment on above: Order Comment: Saimrrobson mason Type: BLOOD SPECIMENOrdering Facility: [facility] Address: [address] [place] [address] Performed By: #### 3 016-3, 92480-4, 3024-01, 42686-5 ####[facility]ORYCLIA [id number] [address] Cholesterol non HDL [Mass/Vol] 149 mg/dL High <130 [facility] Comment on above: Order Comment: Rhina mason Type: BLOOD SPECIMENOrdering Facility: [facility] Address: [address] [place] [address] Result Comment: <130 mg/dL, Optimal 130-159 mg/dL, Near optimal/above optimal 160-189 mg/dL, Borderline high 190-219 mg/dL, High >219 mg/dL, Very high Secondary prevention optimal non HDL Cholesterol levels are recommended to be <100 mg/dL Performed By: #### 3 016-3, 91727-5, 3023-7, 50257-3 ####[facility]ATORYCLIA [id number] [address] Cholesterol.total/Pastora sterol in HDL [Mass ratio] 2.91 {ratio} Normal <5.10 [facility] Comment on above: Order Comment: Rhina isabella Type: BLOOD SPECIMENOrdering Facility: [facility] Address: [address] [place] [address] Performed By: #### 3 016-3, 42245-2, 3024-7, 59208-5 ####[facility]ATORYCLIA [id number] [address] FASTING TIME Normal [facility] Comment on above: Order Comment: Rhina isabella Type: BLOOD SPECIMENOrdering Facility: [facility] Address: [address] [place] [address] Result Comment: Unkn own Performed By: #### 3 016-3, 40915-6, 3024-7, 72499-7 ####[facility]ATORYCLIA [id number] [address] Triglyceride [Mass/Vol] 49 mg/dL Normal <150 A [facility] Comment on above: Order Comment: Rhina isabella Type: BLOOD SPECIMENOrdering Facility: [facility] Address: [address] [place] [address] Result Comment: <150 mg/dL, Normal 150-199 mg/dL, Borderline high 200-499 mg/dL, High >499 mg/dL, Very high Performed By: #### 3 016-3, 68313-2, 3024-7, 47543-6 ####[facility]ATORYCLIA [id number] [address] PT panel Coag (PPP)on 2023 INR Coag (PPP) [Relative time] 1.3 {INR} Normal 0.9-1.3 [facility] Comment on above: Order Comment: Rhina mason Type: BLOOD SPECIMENOrdering Facility: [facility] Address: [address] [place] [address] Result Comment: Mayra min K Antagonist (VKA) Therapeutic Range: INR 2 to 3 (Target INR of 2.5) Note: For patients treated with VKA drugs, such as warfarin, the [place] College [employer]icians 2012 Guideline recommends [...] Chest 2012, 141:7S-47S Daren RA, et al. [facility] 2017, 70: 252-289 Performed By: #### 3 4528-0 ####[facility]ATORYCLIA [id number] [place] [address] [place] PT Coag (PPP) [Time] 13.2 s High 9.7-13.0 [facility] Comment on above: Order Comment: Speci men Type: BLOOD SPECIMENOrdering Facility: [facility] Address: [address] [place] [address] Performed By: #### 3 4528-0 ####[facility]ATORYCLIA [id number] [address] [place] T4 Free SerPl-mCncon 024 Free T4 [Mass/Vol] 1.3 ng/dL Normal 0.9-1.7 [facility] Comment on above: Order Comment: Speci men Type: BLOOD SPECIMENOrdering Facility: [facility] Address: [address] [place] [address] Performed By: #### 3 016-3, 17277-0, 3024-7, 01837-4 ####[facility]ATORYCLIA [id number] [address] [place] TSH SerPl-aCncon 06-10-2024 TSH Qn 1.620 m[IU]/L Normal 0.270-4.200 [facility] Comment on above: Order Comment: Speci men Type: BLOOD SPECIMENOrdering Facility: [facility] Address: [facility] [place] [address] Performed By: #### 3 016-3, 00117-6, 3024-7, 44548-0 ####[facility]ORATORYCLIA [id number] [place] [address] [place] 36on 06-04-2024 36 Normal [facility] 36on 06-01-2024 36 Normal [facility] Progress Noteon 05-22-2024 Progress Note Normal [facility] PT Coag (Bld) [Time]on 05-21 INR Coag (PPP) [Relative time] 2.8 {INR} Abnormal 0.9 - 1.1 [facility] Interpretation and review of laboratory results Abnormal [facility] Progress Noteon 05-21-2024 Progress Note Normal [facility] Progress Note INR reported on yoan Waller with [facility]. Christin can be reached at [phone] with questions. Normal [facility] Protime-INRon 05-21-2024 PT Coag (Bld) [Time] 33.9 s Abnormal 9.0 - 12.[address] [facility] [employer] Heart TransthoracicOrdere d By: Davian Landrum on 05-14-2024 Ao Root Index 1.63 cm/m2 [facility] Work Phone: Aortic Arch 2.6 cm [facility] Work Phone: Aortic Root 2.8 cm [facility] Work Phone: Aortic Sinus Valsalva 2.8 cm [facility] [employer] Work Phone: Aortic Sinus Valsalva Index 1.63 cm/m2 [facility] Work Phone: Ascending Aorta 2.7 cm [facility] Work Phone: Ascending Aorta Index 1.57 cm/m2 [facility] [employer] Work Phone: AV Area by Peak Velocity 1.4 cm2 [facility] Work Phone: AV Area by VTI 1.4 cm2 [facility] Work Phone: AV Mean Gradient 3 mmHg [facility] Work Phone: AV Mean Velocity 0.9 m/s [facility] Work Phone: AV Peak Gradient 7 mmHg [facility] Work Phone: AV Peak Velocity 1.3 m/s [facility] Work Phone: AV Velocity [facility].62 [facility] Work Phone: [facility] VTI [facility] Work Phone: POLA/BSA Peak Velocity 0.8 cm2/m2 [facility] Work Phone: POLA/BSA VTI 0.8 cm2/m2 [facility] Health Work Phone: E/E' Lateral 14 [facility] Work Phone: E/E' Ratio (Averaged) 18 [facility] Work Phone: E/E' Septal 22 [facility] Work Phone: EF BP 61 % 55 - 100 % [facility] Work Phone: Est. RA Pressure 3 mmHg [facility] Work Phone: Fractional Shortening 2D 30 % 28 - 44 % [facility] Work Phone: Global Longitudinal Strain -15.3 % [facility] Work Phone: Interpretation and review of laboratory results Abnormal [facility] Work Phone: [phone] IVC Diameter 1.8 cm [facility] Work Phone: IVSd 1 cm Abnormal 0.6 - 0.9 cm [facility] Work Phone: [phone] LA Diameter 4.1 cm [facility] Work Phone: LA Size Index 2.38 cm/m2 [facility] Work Phone: LA Volume 2C 63 mL Abnormal 22 - 52 mL [facility] Work Phone: LA Volume 4C 80 mL Abnormal 22 - 52 mL [facility] Work Phone: LA Volume A/L 76 mL [facility] Work Phone: [phone] LA Volume BP 72 mL Abnormal 22 - 52 mL [facility] Work Phone: LA Volume Index 2C 37 mL/m2 Abnormal 16 - 34 mL/m2 [facility] Work Phone: LA Volume Index 4C 47 mL/m2 Abnormal 16 - 34 mL/m2 [facility] Work Phone: [phone] LA Volume Index A/L 44 mL/m2 16 - 34 mL/m2 [facility] Work Phone: [phone] LA Volume Index BP 42 ml/m2 Abnormal 16 - 34 ml/m2 [facility] Work Phone: [phone] LA/AO Root Ratio 1.46 [facility] Work Phone: LV E' Lateral Velocity 11 cm/s [facility] Work Phone: [phone] LV E' Septal Velocity 7 cm/s [facility] Work Phone: LV EDV A2C 45 mL [facility] Work Phone: LV EDV A4C 48 mL [facility] Work Phone: [phone] LV EDV BP 47 mL Abnormal 56 - 104 mL [facility] Work Phone: LV EDV Index A2C 26 mL/m2 [facility] Work Phone: LV EDV Index A4C 28 mL/m2 [facility] He [facility] Work Phone: [phone] LV EDV Index BP 27 mL/m2 [facility] Work Phone: LV Ejection Fraction A2C 68 % [facility] Work Phone: LV Ejection Fraction A4C 55 % [facility] Work Phone: LV ESV A2C 14 mL [facility] Work Phone: LV ESV A4C 21 mL [facility] Work Phone: LV ESV BP 18 mL Abnormal 19 - 49 mL [facility] Work Phone: LV ESV Index A2C 8 mL/m2 [facility] Work Phone: [phone] LV ESV Index A4C 12 mL/m2 [facility] Work Phone: [phone] LV ESV Index BP 10 mL/[facility]2 [facility] Work Phone: [phone] LV Mass 2D 142.5 g 67 - 162 g [facility] Work Phone: [phone] LV Mass 2D Index 82.8 g/m2 43 - 95 g/m2 [facility] [employer] Work Phone: [phone] LV RWT Ratio 0.47 [facility] [employer] Work Phone: [phone] LVIDd 4.3 cm 3.9 - 5.3 cm [facility] [employer] Work Phone: [phone] LVIDd Index 2.5 cm/m2 [facility] [employer] Work Phone: [phone] LVIDs 3 cm [facility] [employer] Work Phone: [phone] LVIDs Index 1.74 cm/m2 [facility] [employer] Work Phone: [phone] LVOT Area 2.5 cm2 [facility] [employer] Work Phone: [phone] LVOT Cardiac Output 3.2 liter/mi nut e [facility] [employer] Work Phone: [phone] LVOT Diameter 1.8 cm [facility] [employer] Work Phone: [phone] LVOT Mean Gradient 1 mmHg [facility] [employer] Work Phone: LVOT Peak Gradient 2 mmHg [facility] [employer] Work Phone: [phone] LVOT Peak Velocity 0.8 m/s [facility] [employer] Work Phone: [phone] LVOT Stroke Volume Index 25.1 mL/m2 [facility] [employer] Work Phone: [phone] LVOT SV 43.2 ml [facility] [employer] Work Phone: [phone] LVOT VTI 17 cm [facility] [employer] Work Phone: [phone] LVOT:AV VTI Index 0.57 [facility] Work Phone: [phone] LVPWd 1 cm Abnormal 0.6 - 0.9 cm [facility] [employer] Work Phone: MV A Velocity 0.41 m/s [facility] Work Phone: MV Area by [...] alth Work Phone: MV PHT 66.9 ms [facility] Work Phone: MV VTI 35.1 cm [facility] Work Phone: MV:LVOT VTI Index 2.06 [facility] Work Phone: RA Area 4C 55.1 mL [facility] Work Phone: RV Basal Dimension 2.7 cm [facility] Work Phone: RV Free Wall Peak S' 11 cm/s [facility] Work Phone: RV Longitudinal Dimension 4.9 cm [facility] Work Phone: RV Mid Dimension 2.1 cm [facility] Work Phone: RVSP 54 mmHg [facility] Work Phone: Sinotubular Junction 2.7 cm [facility] Work Phone: TAPSE 1.5 cm Abnormal 1.7 cm [facility] Work Phone: TR Max Velocity 3.56 m/s [facility] Work Phone: TR Peak Gradient 51 mmHg [facility] Work Phone: TR Peak Velocity PISA 3.6 m/s [place] [employer] Work Phone: [phone] TR VTI 120.8 cm [facility] [employer] Work Phone: TV EROA 0.2 cm2 [facility] [employer] Work Phone: TV Nyquist Velocity 39 cm/s [facility] [employer] Work Phone: [facility] [employer] Work Phone: US Heart Transthor[employer]icon There is a [...] notified the ordering physician of the findings. CV CPACS PT Coag (Bld) [Time]on 05-09 INR Coag (PPP) [Relative time] 2.7 {INR} Abnormal 0.9 - 1.1 [facility] Interpretation and review of laboratory results Abnormal [facility] Progress Noteon 05-09-2024 Progress Note Graciela from [facility] call ed in results. Normal [facility] Progress Note Normal [facility] Protime-INRon 05-09-2024 PT Coag (Bld) [Time] 32.1 s Abnormal 9.0 - 12.0 [facility] PT Coag (Bld) [Time]on 05-01 INR Coag (PPP) [Relative time] 2.7 {INR} Abnormal 0.9 - 1.1 [facility] Interpretation and review of laboratory results Abnormal [facility] Progress Noteon 05-01-2024 Progress Note Normal [facility] Progress Note Tia- [facility]- [phone] Normal [facility] Protime-INRon 05-01-2024 PT Coag (Bld) [Time] 32.4 s Abnormal 9.0 - 12.0 [facility] 36on 04-27-2024 36 Pt requested refill on warfarin 5mg. Sent to [facility]. Receipt confirmed by pharmacy. Normal [facility] Progress Noteon 04-27-2024 Progress Note Normal [facility] Progress Note Tia- [facility]- [phone] Normal [facility] Progress Noteon 04-25-2024 Progress Note Normal [facility] Progress Noteon 04-23-2024 Progress Note Normal [facility] Progress Note Christin [facility] called any questions or concerns [phone]. Normal [facility] PT Coag (Bld) [Time]on 04-19 INR Coag (PPP) [Relative time] 2.1 {INR} Abnormal 0.9 - 1.1 [facility] Interpretation and review of laboratory results Abnormal [facility] Progress Noteon 04-19-2024 Progress Note Normal [facility] Progress Note Graciela with [facility] repo rts INR on vm Graciela can be reached at [phone] with any questions. Normal [facility] Protime-INRon 04-19-2024 PT Coag (Bld) [Time] 24.9 s Abnormal 9.0 - 12.0 [facility] Progress Noteon 04-16-2024 Progress Note Christin- [facility]- [phone] Normal [facility] Progress Note Normal [facility] Progress Noteon 04-14-2024 Progress Note Placed new order for POCT INR, [facility] had not received. Normal [facility] [id number] 04-13-2024 [id number] Normal [facility] APTTon 04-13-2024 aPTT Coag (Bld) [Time] 132.2 s Critically high 20.0-30. 5 [facility] Comment on above: Result Comment: BUBBA Garcia COMMENTS:NOTE: The therapeutic time for Heparin anticoagulation, based on Xa activity inhibition, is an APTT of 46-80 seconds. Performed By: #### L [id number], [id number] ####Patient Services Technician: VELMA VALADEZ ([phone])[facility])[address] [place] [address] BASIC METABOLIC PANELon 03-19 Anion gap [Moles/Vol] 2 mmol/L Low 3-13 [facility] Comment on above: Performed By: #### L [id number] ####Patient Services Technician: VELMA VALADEZ ([phone])[facility] ([facility])[address] [place] [address] Calcium [Mass/Vol] 9.0 mg/dL Normal 8.4-10.4 [facility] Comment on above: Performed By: #### L [id number] ####Patient Services Technician: VELMA VALADEZ ([phone])[facility] ([facility])[address] [place] [address] [place] Chloride [Moles/Vol] 108 mmol/L High 98-107 [facility] Comment on above: Performed By: #### L [id number] ####Patient Services Technician: VELMA VALADEZ ([phone])[facility])[address] [place] [address] CO2 [Moles/Vol] 25 mmol/L Normal 22-30 [facility] Comment on above: Performed By: #### L [id number] ####Patient Services Technician: VELMA VALADEZ ([phone])[facility])[address] [place] [address] Creatinine [Mass/Vol] 1.00 mg/dL Normal 0.52-1.04 [facility] Comment on above: Performed By: #### L [id number] ####Patient Services Technician: VELMA VALADEZ ([phone])[facility])[address] [place] [address] GLOMERULAR FILTRATION RATE ML/MIN/1.73 SQ M.PREDICTED 55.7 mL/min/1.73m*2 Low >60.0 [facility] Comment on above: Result Comment: Calc ulation based on the Chronic Kidney Disease Epidemiology Collaboration (CKD-EPI) equation refit without adjustment for race Performed By: #### L [id number] ####Patient Services Technician: VELMA VALADEZ ([phone])[facility])[address] [place] [address] Glucose [Mass/Vol] 98 mg/dL Normal 70-100 [facility] Comment on above: Performed By: #### L [id number] ####Patient Services Technician: VELMA VALADEZ ([phone])[facility])[address] [place] [address] [place] Potassium [Moles/Vol] 4.3 mmol/L Normal 3.5-5.1 [facility] Comment on above: Performed By: #### L [id number] ####Patient Services Technician: VELMA VALADEZ ([phone])[facility])[address] [place] [address] [place] Sodium [Moles/Vol] 135 mmol/L Normal 135-145 [facility] Comment on above: Performed By: #### L [id number] ####Patient Services Technician: VELMA VALADEZ ([phone])[facility] ([facility])[address] [place] [address] Urea nitrogen [Mass/Vol] 18 mg/dL High 7-17 [facility] Comment on above: Performed By: #### L [id number] ####Patient Services Technician: VELMA VALADEZ ([phone])[facility] ([facility])[address] [place] [address] Basic metabolic 1998 panelon 04-13-2024 Anion gap [Moles/Vol] 2 mmol/L Low 3 - 13 mmol/L [facility] Calcium [Mass/Vol] 9.0 mg/dL 8.4 - 10. 4 mg/dL [facility] Chloride [Moles/Vol] 108 mmol/L High 98 - 10 7 mmol/L [facility] CO2 [Moles/Vol] 25 mmol/L 22 - 30 mmol/L [facility] Creatinine [Mass/Vol] 1.00 mg/dL 0.52 - 1.04 mg/dL [facility] GFR/1.73 sq M.predicted (S/P/Bld) [Vol rate/Area] 55.7 mL/min Low - PINF [facility] Comment on above: Calculation based on the Chronic Kidney Disease Epidemiology Collaboration (CKD-EPI) equation refit without adjustment for race Glucose [Mass/Vol] 98 mg/dL 70 - 100 mg/dL [facility] Interpretation and review of laboratory results Abnormal [facility] Potassium [Moles/Vol] 4.3 mmol/L 3.5 - 5.1 mmol/L [facility] Sodium [Moles/Vol] 135 mmol/L 135 - 145 mmol/L [facility] Urea nitrogen [Mass/Vol] 18 mg/dL High 7 - 17 mg/dL [facility] CARECOORDon 04-13-2024 CARECOHENDERSON Normal [facility] Normal [facility] CBC W Auto Differential pane l (Bld)on 04-13-2024 Basophils (Bld) [#/Vol] 0.0 10*3/uL 0.0 - 0.2 10*3/uL [facility] Basophils/100 WBC (Bld) 0.7 % 0.0 - 2.0 % [facility] Eosinophils (Bld) [#/Vol] 0.1 10*3/uL 0.0 - 0.5 10*3/uL [facility] Eosinophils/100 WBC (Bld) 2.6 % 0.0 - 6.0 % [facility] Erythrocyte distribution width (RBC) [Ratio] 14.5 % 11.5 - 15.0 % [facility] Hematocrit (Bld) [Volume fraction] 26.3 % Low 35.0 - 47.0 % [facility] Hemoglobin (Bld) [Mass/Vol] 8.6 g/dL Low 11.7 - 16.0 g/dL [facility] Immature granulocytes (Bld) [#/Vol] 0.0 10*3/uL NINF - 0.1 10*3/uL [facility] Immature granulocytes/100 WBC (Bld) 0.2 % 0.0 - 2.0 % [facility] Interpretation and review of laboratory results Abnormal [facility] Lymphocytes (Bld) [#/Vol] 1.4 10*3/uL 1.0 - 4.3 10*3/uL [facility] Lymphocytes/100 WBC (Bld) 33.5 % 15.0 - 45.0 % [facility] MCH (RBC) [Entitic mass] 29.8 pg 26.0 - 34.0 pg [facility] MCHC (RBC) [Mass/Vol] 32.7 % 30.5 - 36.0 % [facility] MCV (RBC) [Entitic vol] 91.0 fL 77.0 - 99.0 fL [facility] Monocytes (Bld) [#/Vol] 0.5 10*3/uL 0.0 - 0.9 10*3/uL [facility] Monocytes/100 WBC (Bld) 11.3 % 5.0 - 13.0 % [facility] Neutrophils (Bld) [#/Vol] 2.2 10*3/uL 1.8 - 7.5 10*3/uL [facility] Neutrophils/100 WBC (Bld) 51.7 % 38.0 - 82.0 % [facility] Nucleated RBC/100 WBC (Bld) [Ratio] 0.0 % [facility] Platelet mean volume (Bld) [Entitic vol] 9.4 fL 9.0 - 12.7 fL [facility] Platelets (Bld) [#/Vol] 317 10*3/uL 140 - 440 10*3/uL [facility] RBC (Bld) [#/Vol] 2.89 10*6/uL Low 3.80 - 5.2 0 10*6/uL [facility] WBC (Bld) [#/Vol] 4.2 10*3/uL 3.6 - 10.7 10*3/uL [facility] CBC WITH AUTO DIFFERENTIALon 04-13-2024 Basophils (Bld) [#/Vol] 0.0 10*3/uL Normal 0.0-0.2 [facility] Comment on above: Performed By: #### L [id number] ####Patient Services Technician: VELMA VALADEZ ([phone])[facility] ([facility])[address] [place] [address] Basophils/100 WBC (Bld) 0.7 % Normal 0.0-2.0 S [facility] Comment on above: Performed By: #### L [id number] ####Patient Services Technician: VELMA VALADEZ ([phone])[facility] ([facility])[address] [place] [address] [place] Eosinophils (Bld) [#/Vol] 0.1 10*3/uL Normal 0.0-0.5 [facility] Comment on above: Performed By: #### L [id number] ####Patient Services Technician: VELMA VALADEZ ([phone])[facility] ([facility])[address] [place] [address] Eosinophils/100 WBC (Bld) 2.6 % Normal 0.0-6.0 [facility] Comment on above: Performed By: #### L [id number] ####Patient Services Technician: VELMA VALADEZ ([phone])[facility] ([facility])[address] [place] [address] Erythrocyte distribution width (RBC) [Ratio] 14.5 % Normal 11.5-15.0 [facility] Comment on above: Performed By: #### L [id number] ####Patient Services Technician: VELMA [phone])[facility] [address] Hematocrit (Bld) [Volume fraction] 26.3 % Low 35.0-47.0 [facility] Comment on above: Performed By: #### L [id number] ####Patient Services Technician: VELMA VALADEZ ([phone])[facility])[address] [place] [address] Hemoglobin (Bld) [Mass/Vol] 8.6 g/dL Low 11.7-16.0 [facility] Comment on above: Performed By: #### L [id number] ####Patient Services Technician: VELMA VALADEZ ([phone])[facility])[address] [place] [address] IMMATURE GRANS % 0.2 % Normal 0.0-2.0 [facility] Comment on above: Performed By: #### L [id number] ####Patient Services Technician: VELMA VALADEZ ([phone])[facility])[address] [place] [address] IMMATURE GRANS ABSOLUTE 0.0 10*3/uL Normal <0.1 [facility] Comment on above: Performed By: #### L [id number] ####Patient Services Technician: VELMA VALADEZ ([phone])[facility])[address] [place] [address] Lymphocytes (Bld) [#/Vol] 1.4 10*3/uL Normal 1.0-4.3 [facility] Comment on above: Performed By: #### L [id number] ####Patient Services Technician: VELMA VALADEZ ([phone])[facility])[address] [place] [address] Lymphocytes/100 WBC (Bld) 33.5 % Normal 15.0-45.0 [facility] Comment on above: Performed By: #### L [id number] ####Patient Services Technician: VELMA VALADEZ ([phone])[facility])[address] [place] [address] MCH (RBC) [Entitic mass] 29.8 pg Normal 26.0-34.0 [facility] Comment on above: Performed By: #### L [id number] ####Patient Services Technician: VELMA VALADEZ ([phone])[facility])[address] [place] [address] MCHC 32.7 % Normal 30.5-36.0 [facility] Comment on above: Performed By: #### L [id number] ####Patient Services Technician: VELMA VALADEZ ([phone])[facility])[address] [place] [address] MCV (RBC) [Entitic vol] 91.0 fL Normal 77.0-99.0 [facility] Comment on above: Performed By: #### L [id number] ####Patient Services Technician: VELMA VALADEZ ([phone])[facility])[address] [place] [address] Monocytes (Bld) [#/Vol] 0.5 10*3/uL Normal 0.0-0.9 [facility] Comment on above: Performed By: #### L [id number] ####Patient Services Technician: VELMA VALADEZ ([phone])[facility])[address] [place] [address] Monocytes/100 WBC (Bld) 11.3 % Normal 5.0-13.0 [facility] Comment on above: Performed By: #### L [id number] ####Patient Services Technician: VELMA VALADEZ ([phone])[facility])[address] [place] [address] NEUTROPHILS ABSOLUTE 2.2 10*3/uL Normal 1.8-7.5 [facility] Comment on above: Performed By: #### L [id number] ####Patient Services Technician: VELMA VALADEZ ([phone])[facility])[address] [place] [address] Neutrophils/100 WBC (Bld) 51.7 % Normal 38.0-82.0 [facility] Comment on above: Performed By: #### L [id number] ####Patient Services Technician: VELMA [phone])[facility] ([facility])[address] [place] [address] NRBC 0.0 /100 WBCs Normal 0.0-2.0 [facility] Comment on above: Performed By: #### L [id number] ####Patient Services Technician: VELMA VALADEZ ([phone])[facility])[address] [place] [address] Platelet mean volume (Bld) [Entitic vol] 9.4 fL Normal 9.0-12.7 [facility] Comment on above: Performed By: #### L [id number] ####Patient Services Technician: VELMA VALADEZ ([phone])[facility])[address] [place] [address] Platelets (Bld) [#/Vol] 317 10*3/uL Normal 140-440 [facility] Comment on above: Performed By: #### L [id number] ####Patient Services Technician: VELMA VALADEZ ([phone])[facility] ([facility])[address] [place] [address] RBC (Bld) [#/Vol] 2.89 10*6/uL Low 3.80-5.20 [facility] Comment on above: Performed By: #### L [id number] ####Patient Services Technician: VELMA VALADEZ ([phone])[facility])[address] [place] [address] WBC (Bld) [#/Vol] 4.2 10*3/uL Normal 3.6-10.7 [facility] Comment on above: Performed By: #### L [id number] ####Patient Services Technician: VELMA VALADEZ ([phone])[facility])[address] [place] [address] [place] IDNon 04-13-2024 IDN Normal [facility] Laboratory - Coagulationon 0 04-13-2024 PT Coag (Bld) [Time] 24.2 s High 9.0 - 1 2.0 s [facility] Nursing Noteon 04-13-2024 Nursing Note AVS explained. Discharged patient on stable condition. Normal [facility] Nursing Note Instructed patient o n warfarin dosing, she will take 7.5mg tomorrow, and 5mg Tuesday, and then we will check INR with home care on Tuesday as instructed. Normal [facility] PROTHROMBIN TIMEon INR Coag (PPP) [Relative time] 2.3 {INR} High 0.9-1.1 [facility] Comment on above: Result Comment: Timothy [...] Myocardial Infarction Performed By: #### [place] [id number], [id number] ####Patient Services Technician: VELMA VALADEZ ([phone])[facility] ([facility])[address] [place] [address] PT Coag (PPP) [Time] 24.2 s High 9.0-12.0 [facility] Comment on above: Performed By: #### [place]on [id number], [id number] ####Patient Services Technician: VELMA VALADEZ ([phone])[facility])[address] [place] [address] PT Coag (Bld) [Time]on 04-13 INR Coag (PPP) [Relative time] 2.3 {INR} High 0.9 - 1.1 [facility] Comment on above: Recommended Anticoag ulant Therapy: [...] Interpretation and review of laboratory results Abnormal [facility] Progress Noteon 04-13-2024 Progress Note Normal [facility] Progress Note Normal [facility] Progress Note Normal [facility] aPTT Coag (Bld) [Time]Ordere d By: Melany Tejeda on 04-13-2024 aPTT Coag (PPP) [Time] 132.2 s Critically high 20 .0 - 30.5 s [facility] Interpretation and review of laboratory results Abnormal [facility] NOTE: The therapeuti c time for Heparin anticoagulation, based on Xa activity inhibition, is an APTT of 46-80 seconds. [facility] BASIC METABOLIC PANELon 03-19 Anion gap [Moles/Vol] 3 mmol/L Normal 3-13 [facility] Comment on above: Performed By: #### L [id number] ####Patient Services Technician: VELMA VALADEZ ([phone])[facility])[address] [place] [address] Calcium [Mass/Vol] 9.3 mg/dL Normal 8.4-10.4 [facility] Comment on above: Performed By: #### L [id number] ####Patient Services Technician: VELMA VALADEZ ([phone])[facility])[address] [place] [address] Chloride [Moles/Vol] 108 mmol/L High 98-107 [facility] Comment on above: Performed By: #### L [id number] ####Patient Services Technician: VELMA VALADEZ ([phone])[facility])[address] [place] [address] CO2 [Moles/Vol] 24 mmol/L Normal 22-30 [facility] Comment on above: Performed By: #### L [id number] ####Patient Services Technician: VELMA VALADEZ ([phone])[facility])[address] [place] [address] Creatinine [Mass/Vol] 0.99 mg/dL Normal 0.52-1.04 [facility] Comment on above: Performed By: #### L AB15 ####Patient Services Technician: VELMA VALADEZ ([phone])[facility] ([facility])[address] [place] [address] GLOMERULAR FILTRATION RATE ML/MIN/1.73 SQ M.PREDICTED 56.3 mL/min/1.73m*2 Low >60.0 [facility] Comment on above: Result Comment: Calc ulation based on the Chronic Kidney Disease Epidemiology Collaboration (CKD-EPI) equation refit without adjustment for race Performed By: #### L AB15 ####Patient Services Technician: VELMA VALADEZ ([phone])[facility] ([facility])[address] [place] [address] Glucose [Mass/Vol] 101 mg/dL High 70-100 [facility] Comment on above: Performed By: #### L AB15 ####Patient Services Technician: VELMA VALADEZ ([phone])[facility])[address] [place] [address] Potassium [Moles/Vol] 3.9 mmol/L Normal 3.5-5.1 [facility] Comment on above: Performed By: #### L AB15 ####Patient Services Technician: VELMA VALADEZ ([phone])[facility] ([facility])[address] [place] [address] Sodium [Moles/Vol] 135 mmol/L Normal 135-145 [facility] Comment on above: Performed By: #### L AB15 ####Patient Services Technician: VELMA VALADEZ ([phone])[facility])[address] [place] [address] Urea nitrogen [Mass/Vol] 16 mg/dL Normal 7-17 [facility] Comment on above: Performed By: #### L AB15 ####Patient Services Technician: VELMA VALADEZ ([phone])[facility])[address] [place] [address] Basic metabolic 1998 panelon 04-12-2024 Anion gap [Moles/Vol] 3 mmol/L 3 - 13 mmol/L [facility] Calcium [Mass/Vol] 9.3 mg/dL 8.4 - 10. 4 mg/dL [facility] Chloride [Moles/Vol] 108 mmol/L High 98 - 10 7 mmol/L [facility] CO2 [Moles/Vol] 24 mmol/L 22 - 30 mmol/L [facility] Creatinine [Mass/Vol] 0.99 mg/dL 0.52 - 1.04 mg/dL [facility] GFR/1.73 sq M.predicted (S/P/Bld) [Vol rate/Area] 56.3 mL/min Low - PINF [facility] Comment on above: Calculation based on the Chronic Kidney Disease Epidemiology Collaboration (CKD-EPI) equation refit without adjustment for race Glucose [Mass/Vol] 101 mg/dL High 70 - 100 mg/dL [facility] Interpretation and review of laboratory results Abnormal [facility] Potassium [Moles/Vol] 3.9 mmol/L 3.5 - 5.1 mmol/L [facility] Sodium [Moles/Vol] 135 mmol/L 135 - 145 mmol/L [facility] Urea nitrogen [Mass/Vol] 16 mg/dL 7 - 17 mg/dL [facility] CARECOORDon 04-12-2024 CARECOHENDERSON Normal [facility] CBC W Auto Differential pane l (Bld)on 04-12-2024 Basophils (Bld) [#/Vol] 0.0 10*3/uL 0.0 - 0.2 10*3/uL [facility] Basophils/100 WBC (Bld) 0.5 % 0.0 - 2.0 % [facility] Eosinophils (Bld) [#/Vol] 0.1 10*3/uL 0.0 - 0.5 10*3/uL [facility] Eosinophils/100 WBC (Bld) 2.4 % 0.0 - 6.0 % [facility] Erythrocyte distribution width (RBC) [Ratio] 14.8 % 11.5 - 15.0 % [facility] Hematocrit (Bld) [Volume fraction] 28.3 % Low 35.0 - 47.0 % [facility] Hemoglobin (Bld) [Mass/Vol] 9.3 g/dL Low 11.7 - 16.0 g/dL [facility] Immature granulocytes (Bld) [#/Vol] 0.0 10*3/uL NINF - 0.1 10*3/uL [facility] Immature granulocytes/100 WBC (Bld) 0.2 % 0.0 - 2.0 % [facility] Interpretation and review of laboratory results Abnormal [facility] [employer] Lymphocytes (Bld) [#/Vol] 1.4 10*3/uL 1.0 - 4.3 10*3/uL [facility] [employer] Lymphocytes/100 WBC (Bld) 33.0 % 15.0 - 45.0 % [facility] [employer] MCH (RBC) [Entitic mass] 30.4 pg 26.0 - 34.0 pg [facility] [employer] MCHC (RBC) [Mass/Vol] 32.9 % 30.5 - 36.0 % [facility] [employer] MCV (RBC) [Entitic vol] 92.5 fL 77.0 - 99.0 fL [facility] [employer] Monocytes (Bld) [#/Vol] 0.5 10*3/uL 0.0 - 0.9 10*3/uL [facility] [employer] Monocytes/100 WBC (Bld) 11.9 % 5.0 - 13.0 % [facility] [employer] Neutrophils (Bld) [#/Vol] 2.1 10*3/uL 1.8 - 7.5 10*3/uL [facility] [employer] Neutrophils/100 WBC (Bld) 52.0 % 38.0 - 82.0 % [facility] [employer] Nucleated RBC/100 WBC (Bld) [Ratio] 0.0 % [facility] [employer] Platelet mean volume (Bld) [Entitic vol] 9.5 fL 9.0 - 12.7 fL [facility] [employer] Platelets (Bld) [#/Vol] 307 10*3/uL 140 - 440 10*3/uL [facility] RBC (Bld) [#/Vol] 3.06 10*6/uL Low 3.80 - 5.2 0 10*6/uL [facility] [employer] WBC (Bld) [#/Vol] 4.1 10*3/uL 3.6 - 10.7 10*3/uL [facility] CBC WITH AUTO DIFFERENTIALon 04-12-2024 Basophils (Bld) [#/Vol] 0.0 10*3/uL Normal 0.0-0.2 [facility] Comment on above: Performed By: #### L [id number] ####Patient Services Technician: VELMA VALADEZ ([phone])[facility] ([address] Basophils/100 WBC (Bld) 0.5 % Normal 0.0-2.0 [facility] Comment on above: Performed By: #### L [id number] ####Patient Services Technician: VELMA VALADEZ ([phone])[facility])[address] [place] [address] Eosinophils (Bld) [#/Vol] 0.1 10*3/uL Normal 0.0-0.5 [facility] Comment on above: Performed By: #### L [id number] ####Patient Services Technician: VELMA VALADEZ ([phone])[facility])[address] [place] [address] Eosinophils/100 WBC (Bld) 2.4 % Normal 0.0-6.0 [facility] Comment on above: Performed By: #### L [id number] ####Patient Services Technician: VELMA VALADEZ ([phone])[facility])[address] [place] [address] Erythrocyte distribution width (RBC) [Ratio] 14.8 % Normal 11.5-15.0 [facility] Comment on above: Performed By: #### L [id number] ####Patient Services Technician: VELMA VALADEZ ([phone])[facility])[address] [place] [address] Hematocrit (Bld) [Volume fraction] 28.3 % Low 35.0-47.0 [facility] Comment on above: Performed By: #### L [id number] ####Patient Services Technician: VELMA VALADEZ ([phone])[facility])[address] [place] [address] Hemoglobin (Bld) [Mass/Vol] 9.3 g/dL Low 11.7-16.0 [facility] Comment on above: Performed By: #### L [id number] ####Patient Services Technician: VELMA VALADEZ ([phone])[facility])[address] [place] [address] IMMATURE GRANS % 0.2 % Normal 0.0-2.0 [facility] Comment on above: Performed By: #### L [id number] ####Patient Services Technician: VELMA VALADEZ ([phone])[facility])[address] [place] [address] IMMATURE GRANS ABSOLUTE 0.0 10*3/uL Normal <0.1 [facility] Comment on above: Performed By: #### L [id number] ####Patient Services Technician: VELMA VALADEZ ([phone])[facility])[address] [place] [address] Lymphocytes (Bld) [#/Vol] 1.4 10*3/uL Normal 1.0-4.3 [facility] Comment on above: Performed By: #### L [id number] ####Patient Services Technician: VELMA VALADEZ ([phone])[address] Lymphocytes/100 WBC (Bld) 33.0 % Normal 15.0-45.0 [facility] Comment on above: Performed By: #### L [id number] ####Patient Services Technician: VELMA VALADEZ ([phone])[facility])[address] [place] [address] MCH (RBC) [Entitic mass] 30.4 pg Normal 26.0-34.0 [facility] Comment on above: Performed By: #### L [id number] ####Patient Services Technician: VELMA VALADEZ ([phone])[address] MCHC 32.9 % Normal 30.5-36.0 [facility] Comment on above: Performed By: #### L [id number] ####Patient Services Technician: VELMA VALADEZ ([phone])[address] MCV (RBC) [Entitic vol] 92.5 fL Normal 77.0-99.0 S [facility] Comment on above: Performed By: #### L [id number] ####Patient Services Technician: VELMA VALADEZ ([phone])[facility] [place] [address] Monocytes (Bld) [#/Vol] 0.5 10*3/uL Normal 0.0-0.9 [facility] Comment on above: Performed By: #### L [id number] ####Patient Services Technician: VELMA VALADEZ ([phone])[facility] ([facility])[address] [place] [address] Monocytes/100 WBC (Bld) 11.9 % Normal 5.0-13.0 [facility] Comment on above: Performed By: #### L [id number] ####Patient Services Technician: VELMA VALADEZ ([phone])[facility] ([facility])[address] [place] [address] NEUTROPHILS ABSOLUTE 2.1 10*3/uL Normal 1.8-7.5 [facility] Comment on above: Performed By: #### L [id number] ####Patient Services Technician: VELMA VALADEZ ([phone])[facility] ([facility])[address] [place] [address] Neutrophils/100 WBC (Bld) 52.0 % Normal 38.0-82.0 [facility] Comment on above: Performed By: #### L [id number] ####Patient Services Technician: VELMA VALADEZ ([phone])[facility] ([facility])[address] [place] [address] NRBC 0.0 /100 WBCs Normal 0.0-2.0 [facility] Comment on above: Performed By: #### L [id number] ####Patient Services Technician: VELMA VALADEZ ([phone])[facility] ([facility])[address] [place] [address] [place] Platelet mean volume (Bld) [Entitic vol] 9.5 fL Normal 9.0-12.7 [facility] Comment on above: Performed By: #### L [id number] ####Patient Services Technician: VELMA VALADEZ ([phone])[facility] ([facility])[address] [place] [address] [place] Platelets (Bld) [#/Vol] 307 10*3/uL Normal 140-440 [facility] Comment on above: Performed By: #### L [id number] ####Patient Services Technician: VELMA VALADEZ ([phone])[facility])[address] [place] [address] RBC (Bld) [#/Vol] 3.06 10*6/uL Low 3.80-5.20 [facility] Comment on above: Performed By: #### L [id number] ####Patient Services Technician: VELMA VALADEZ ([phone])[facility])[address] [place] [address] WBC (Bld) [#/Vol] 4.1 10*3/uL Normal 3.6-10.7 [facility] Comment on above: Performed By: #### L [id number] ####Patient Services Technician: VELMA VALADEZ ([phone])[facility])[address] [place] [address] [place] IDNon 04-12-2024 IDN Normal [facility] IDN Normal [facility] Laboratory - Coagulationon 0 04-12-2024 PT Coag (Bld) [Time] 20.3 s High 9.0 - 1 2.0 s [facility] PROTHROMBIN TIMEon INR Coag (PPP) [Relative time] 1.9 {INR} High 0.9-1.1 [facility] Comment on above: Result Comment: Timothy [...] Myocardial Infarction Performed By: #### L [id number] ####Patient Services Technician: VELMA VALADEZ ([phone])[facility])[address] [place] [address] [place] PT Coag (PPP) [Time] 20.3 s High 9.0-12.0 [facility] Comment on above: Performed By: #### L [id number] ####Patient Services Technician: VELMA VALADEZ ([phone])[facility])[address] [place] [address] PT Coag (Bld) [Time]on 04-12 INR Coag (PPP) [Relative time] 1.9 {INR} High 0.9 - 1.1 [facility] Comment on above: Recommended Anticoag ulant Therapy: [...] Interpretation and review of laboratory results Abnormal [facility] Progress Noteon 04-12-2024 Progress Note Normal [facility] Progress Note Normal [facility] APTTon 04-11-2024 aPTT Coag (Bld) [Time] 62.7 s High 20.0-30.5 [facility] Comment on above: Result Comment: BUBBA Garcia COMMENTS:NOTE: The therapeutic time for Heparin anticoagulation, based on Xa activity inhibition, is an APTT of 46-80 seconds. Performed By: #### L [id number] ####Patient Services Technician: VELMA VALADEZ ([phone])[facility])[address] [place] [address] [place] aPTT Coag (Bld) [Time] 69.0 s High 20.0-30.5 [facility] Comment on above: Result Comment: BUBBA Garcia COMMENTS:NOTE: The therapeutic time for Heparin anticoagulation, based on Xa activity inhibition, is an APTT of 46-80 seconds. Performed By: #### L [id number], [id number] ####Patient Services Technician: VELMA VALADEZ ([phone])[facility])[address] BASIC METABOLIC PANELon 09-2 Anion gap [Moles/Vol] 4 mmol/L Normal 3-13 [facility] Comment on above: Performed By: #### L AB15 ####Patient Services Technician: VELMA VALADEZ ([phone])[facility] ([facility])[address] Calcium [Mass/Vol] 8.8 mg/dL Normal 8.4-10.4 [facility] Comment on above: Performed By: #### L AB15 ####Patient Services Technician: VELMA VALADEZ ([phone])[facility] ([facility])[address] [place] [address] Chloride [Moles/Vol] 108 mmol/L High 98-107 [facility] Comment on above: Performed By: #### L AB15 ####Patient Services Technician: VELMA VALADEZ ([phone])[facility] ([facility])[address] [place] [address] CO2 [Moles/Vol] 22 mmol/L Normal 22-30 [facility] Comment on above: Performed By: #### L AB15 ####Patient Services Technician: VELMA VALADEZ ([phone])[facility] ([facility])[address] [place] [address] Creatinine [Mass/Vol] 1.01 mg/dL Normal 0.52-1.04 [facility] Comment on above: Performed By: #### L AB15 ####Patient Services Technician: VELMA VALADEZ ([phone])[facility] ([facility])[address] [place] [address] GLOMERULAR FILTRATION RATE ML/MIN/1.73 SQ M.PREDICTED 55.0 mL/min/1.73m*2 Low >60.0 [facility] Comment on above: Result Comment: Calc ulation based on the Chronic Kidney Disease Epidemiology Collaboration (CKD-EPI) equation refit without adjustment for race Performed By: #### L AB15 ####Patient Services Technician: VELMA VALADEZ ([phone])[facility] ([facility])[address] [place] [address] Glucose [Mass/Vol] 112 mg/dL High 70-100 [facility] Comment on above: Performed By: #### L AB15 ####Patient Services Technician: VELMA VALADEZ ([phone])[facility] ([facility])[address] [place] [address] Potassium [Moles/Vol] 4.0 mmol/L Normal 3.5-5.1 [facility] Comment on above: Performed By: #### L AB15 ####Patient Services Technician: VELMA VALADEZ ([phone])[facility] ([facility])[address] [place] [address] Sodium [Moles/Vol] 134 mmol/L Low 135-145 [facility] Comment on above: Performed By: #### L AB15 ####Patient Services Technician: VELMA VALADEZ ([phone])[facility] ([facility])[address] [place] [address] Urea nitrogen [Mass/Vol] 16 mg/dL Normal 7-17 [facility] Comment on above: Performed By: #### L AB15 ####Patient Services Technician: VELMA VALADEZ ([phone])[facility] ([facility])[address] [place] [address] Basic metabolic 1998 panelon 04-11-2024 Anion gap [Moles/Vol] 4 mmol/L 3 - 13 mmol/L [facility] Calcium [Mass/Vol] 8.8 mg/dL 8.4 - 10. 4 mg/dL [facility] Chloride [Moles/Vol] 108 mmol/L High 98 - 10 7 mmol/L [facility] CO2 [Moles/Vol] 22 mmol/L 22 - 30 mmol/L [facility] Creatinine [Mass/Vol] 1.01 mg/dL 0.52 - 1.04 mg/dL [facility] GFR/1.73 sq M.predicted (S/P/Bld) [Vol rate/Area] 55.0 mL/min Low - PINF [facility] Comment on above: Calculation based on the Chronic Kidney Disease Epidemiology Collaboration (CKD-EPI) equation refit without adjustment for race Glucose [Mass/Vol] 112 mg/dL High 70 - 100 mg/dL [facility] Interpretation and review of laboratory results Abnormal [facility] Potassium [Moles/Vol] 4.0 mmol/L 3.5 - 5.1 mmol/L [facility] Sodium [Moles/Vol] 134 mmol/L Low 135 - 145 mmol/L [facility] Urea nitrogen [Mass/Vol] 16 mg/dL 7 - 17 mg/dL [facility] CARECOORDon 04-11-2024 CARECOORD Normal [facility] CBC W Auto Differential pane l (Bld)on 04-11-2024 Basophils (Bld) [#/Vol] 0.0 10*3/uL 0.0 - 0.2 10*3/uL [facility] Basophils/100 WBC (Bld) 0.9 % 0.0 - 2.0 % [facility] Eosinophils (Bld) [#/Vol] 0.1 10*3/uL 0.0 - 0.5 10*3/uL [facility] Eosinophils/100 WBC (Bld) 2.0 % 0.0 - 6.0 % [facility] Erythrocyte distribution width (RBC) [Ratio] 14.8 % 11.5 - 15.0 % [facility] Hematocrit (Bld) [Volume fraction] 24.6 % Low 35.0 - 47.0 % [facility] Hemoglobin (Bld) [Mass/Vol] 8.3 g/dL Low 11.7 - 16.0 g/dL [facility] Immature granulocytes (Bld) [#/Vol] 0.0 10*3/uL NINF - 0.1 10*3/uL [facility] Immature granulocytes/100 WBC (Bld) 0.2 % 0.0 - 2.0 % [facility] Interpretation and review of laboratory results Abnormal [facility] Lymphocytes (Bld) [#/Vol] 1.4 10*3/uL 1.0 - 4.3 10*3/uL [facility] Lymphocytes/100 WBC (Bld) 31.9 % 15.0 - 45.0 % [facility] MCH (RBC) [Entitic mass] 30.5 pg 26.0 - 34.0 pg [facility] MCHC (RBC) [Mass/Vol] 33.7 % 30.5 - 36.0 % [facility] MCV (RBC) [Entitic vol] 90.4 fL 77.0 - 99.0 fL [facility] Monocytes (Bld) [#/Vol] 0.5 10*3/uL 0.0 - 0.9 10*3/uL [facility] Monocytes/100 WBC (Bld) 11.2 % 5.0 - 13.0 % [facility] Neutrophils (Bld) [#/Vol] 2.4 10*3/uL 1.8 - 7.5 10*3/uL [facility] Neutrophils/100 WBC (Bld) 53.8 % 38.0 - 82.0 % [facility] Nucleated RBC/100 WBC (Bld) [Ratio] 0.0 % [facility] Platelet mean volume (Bld) [Entitic vol] 10.0 fL 9.0 - 12.7 fL [facility] Platelets (Bld) [#/Vol] 244 10*3/uL 140 - 440 10*3/uL [facility] RBC (Bld) [#/Vol] 2.72 10*6/uL Low 3.80 - 5.2 0 10*6/uL [facility] WBC (Bld) [#/Vol] 4.5 10*3/uL 3.6 - 10.7 10*3/uL [facility] CBC WITH AUTO DIFFERENTIALon 04-11-2024 Basophils (Bld) [#/Vol] 0.0 10*3/uL Normal 0.0-0.2 [facility] Comment on above: Performed By: #### L [id number] ####Patient Services Technician: VELMA [phone])[facility] ([facility])[address] [place] [address] Basophils/100 WBC (Bld) 0.9 % Normal 0.0-2.0 S [facility] Comment on above: Performed By: #### L [id number] ####Patient Services Technician: VELMA [phone])[facility] ([facility])[address] [place] [address] Eosinophils (Bld) [#/Vol] 0.1 10*3/uL Normal 0.0-0.5 [facility] Comment on above: Performed By: #### L [id number] ####Patient Services Technician: VELMA [phone])[facility])[address] [place] [address] Eosinophils/100 WBC (Bld) 2.0 % Normal 0.0-6.0 [facility] Comment on above: Performed By: #### L [id number] ####Patient Services Technician: VELMA VALADEZ ([phone])[facility])[address] [place] [address] Erythrocyte distribution width (RBC) [Ratio] 14.8 % Normal 11.5-15.0 [facility] Comment on above: Performed By: #### L [id number] ####Patient Services Technician: VELMA VALADEZ ([phone])[facility])[address] [place] [address] Hematocrit (Bld) [Volume fraction] 24.6 % Low 35.0-47.0 [facility] Comment on above: Performed By: #### L [id number] ####Patient Services Technician: VELMA VALADEZ ([phone])[facility])[address] [place] [address] Hemoglobin (Bld) [Mass/Vol] 8.3 g/dL Low 11.7-16.0 [facility] Comment on above: Performed By: #### L [id number] ####Patient Services Technician: VELMA VALADEZ ([phone])[facility])[address] [place] [address] IMMATURE GRANS % 0.2 % Normal 0.0-2.0 [facility] Comment on above: Performed By: #### L [id number] ####Patient Services Technician: VELMA VALADEZ ([phone])[facility])[address] [place] [address] IMMATURE GRANS ABSOLUTE 0.0 10*3/uL Normal <0.1 [facility] Comment on above: Performed By: #### L [id number] ####Patient Services Technician: VELMA VALADEZ ([phone])[facility])[address] [place] [address] Lymphocytes (Bld) [#/Vol] 1.4 10*3/uL Normal 1.0-4.3 [facility] Comment on above: Performed By: #### L [id number] ####Patient Services Technician: VELMA VALADEZ ([phone])[facility])[address] [place] [address] Lymphocytes/100 WBC (Bld) 31.9 % Normal 15.0-45.0 [facility] Comment on above: Performed By: #### L [id number] ####Patient Services Technician: VELMA VALADEZ ([phone])[facility])[address] [place] [address] MCH (RBC) [Entitic mass] 30.5 pg Normal 26.0-34.0 [facility] Comment on above: Performed By: #### L [id number] ####Patient Services Technician: VELMA VALADEZ ([phone])[facility])[address] [place] [address] MCHC 33.7 % Normal 30.5-36.0 [facility] Comment on above: Performed By: #### L [id number] ####Patient Services Technician: VELMA VALADEZ ([phone])[facility])[address] [place] [address] MCV (RBC) [Entitic vol] 90.4 fL Normal 77.0-99.0 [facility] Comment on above: Performed By: #### L [id number] ####Patient Services Technician: VELMA VALADEZ ([phone])[facility])[address] [place] [address] Monocytes (Bld) [#/Vol] 0.5 10*3/uL Normal 0.0-0.9 [facility] Comment on above: Performed By: #### L [id number] ####Patient Services Technician: VELMA VALADEZ ([phone])[facility])[address] [place] [address] Monocytes/100 WBC (Bld) 11.2 % Normal 5.0-13.0 [facility] Comment on above: Performed By: #### L [id number] ####Patient Services Technician: VELMA VALADEZ ([phone])[facility] ([facility])[address] [place] [address] NEUTROPHILS ABSOLUTE 2.4 10*3/uL Normal 1.8-7.5 [facility] Comment on above: Performed By: #### L [id number] ####Patient Services Technician: VELMA VALADZE ([phone])[facility] ([facility])[address] [place] [address] Neutrophils/100 WBC (Bld) 53.8 % Normal 38.0-82.0 [facility] Comment on above: Performed By: #### L [id number] ####Patient Services Technician: VELMA VALADEZ ([phone])[facility])[address] [place] [address] NRBC 0.0 /100 WBCs Normal 0.0-2.0 [facility] Comment on above: Performed By: #### L [id number] ####Patient Services Technician: VELMA VALADEZ ([phone])[facility] ([facility])[address] [place] [address] Platelet mean volume (Bld) [Entitic vol] 10.0 fL Normal 9.0-12.7 [facility] Comment on above: Performed By: #### L [id number] ####Patient Services Technician: VELMA VALADEZ ([phone])[facility])[address] [place] [address] [place] Platelets (Bld) [#/Vol] 244 10*3/uL Normal 140-440 [facility] Comment on above: Performed By: #### L [id number] ####Patient Services Technician: VELMA VALADEZ ([phone])[facility])[address] [place] [address] RBC (Bld) [#/Vol] 2.72 10*6/uL Low 3.80-5.20 [facility] Comment on above: Performed By: #### L [id number] ####Patient Services Technician: VELMA VALADEZ ([phone])[facility] ([facility])[address] [place] [address] [place] WBC (Bld) [#/Vol] 4.5 10*3/uL Normal 3.6-10.7 [facility] Comment on above: Performed By: #### [place]on [id number] ####Patient Services Technician: VELMA VALADEZ ([phone])[facility] ([facility])[address] [place] [address] [place] IDNon 04-11-2024 IDN Normal [facility] IDN Normal [facility] Laboratory - Coagulationon 0 04-11-2024 PT Coag (Bld) [Time] 20.9 s High 9.0 - 1 2.0 s [facility] No Panel Informationon 04-11 Interpretation and review of laboratory results Abnormal [facility] PROTHROMBIN TIMEon INR Coag (PPP) [Relative time] 1.9 {INR} High 0.9-1.1 [facility] Comment on above: Result Comment: Timothy [...] Myocardial Infarction Performed By: #### Weston [id number], [id number] ####Patient Services Technician: VELMA VALADEZ ([phone])[facility] ([facility])[address] [place] [address] [place] PT Coag (PPP) [Time] 20.9 s High 9.0-12.0 [facility] Comment on above: Performed By: #### L [id number], [id number] ####Patient Services Technician: VELMA VALADEZ ([phone])[facility] ([facility])[address] [place] [address] [place] PT Coag (Bld) [Time]on 04-11 INR Coag (PPP) [Relative time] 1.9 {INR} High 0.9 - 1.1 [facility] Comment on above: Recommended Anticoag ulant Therapy: [...] Infarction Progress Noteon 04-11-2024 Progress Note Normal [facility] Progress [facility] Progress Note Normal [facility] aPTT Coag (Bld) [Time]on aPTT Coag (PPP) [Time] 62.7 s High 20.0 - 30.5 s [facility] Interpretation and review of laboratory results Abnormal [facility] NOTE: The therapeuti c time for Heparin anticoagulation, based on Xa activity inhibition, is an APTT of 46-80 seconds. [facility] aPTT Coag (PPP) [Time] 69.0 s High 20.0 - 30.5 s [facility] NOTE: The therapeuti c time for Heparin anticoagulation, based on Xa activity inhibition, is an APTT of 46-80 seconds. [facility] APTTon 04-10-2024 aPTT Coag (Bld) [Time] 59.0 s High 20.0-30.5 [facility] Comment on above: Result Comment: BUBBA Garcia COMMENTS:NOTE: The therapeutic time for Heparin anticoagulation, based on Xa activity inhibition, is an APTT of 46-80 seconds. Performed By: #### L [id number] ####Patient Services Technician: VELMA VALADEZ ([phone])[facility] aPTT Coag (Bld) [Time] 77.3 s High 20.0-30.5 [facility] Comment on above: Result Comment: BUBBA Garcia COMMENTS:NOTE: The therapeutic time for Heparin anticoagulation, based on Xa activity inhibition, is an APTT of 46-80 seconds. Performed By: #### L [id number], [id number] ####Patient Services Technician: VELMA VALADEZ ([phone])[facility])[address] [place] [address] BASIC METABOLIC PANELon 09-2 Anion gap [Moles/Vol] 3 mmol/L Normal 3-13 [facility] Comment on above: Performed By: #### L AB15 ####Patient Services Technician: VELMA VALADEZ ([phone])[facility])[address] [place] [address] Calcium [Mass/Vol] 9.0 mg/dL Normal 8.4-10.4 [facility] Comment on above: Performed By: #### L AB15 ####Patient Services Technician: VELMA VALADEZ ([phone])[facility])[address] [place] [address] Chloride [Moles/Vol] 111 mmol/L High 98-107 [facility] Comment on above: Performed By: #### L AB15 ####Patient Services Technician: VELMA VALADEZ ([phone])[facility] ([facility])[address] [place] [address] CO2 [Moles/Vol] 21 mmol/L Low 22-30 [facility] Comment on above: Performed By: #### L [id number] ####Patient Services Technician: VELMA VALADEZ ([phone])[facility])[address] [place] [address] Creatinine [Mass/Vol] 1.00 mg/dL Normal 0.52-1.04 [facility] Comment on above: Performed By: #### L AB15 ####Patient Services Technician: VELMA VALADEZ ([phone])[facility])[address] [place] [address] GLOMERULAR FILTRATION RATE ML/MIN/1.73 SQ M.PREDICTED 55.7 mL/min/1.73m*2 Low >60.0 [facility] Comment on above: Result Comment: Calc ulation based on the Chronic Kidney Disease Epidemiology Collaboration (CKD-EPI) equation refit without adjustment for race Performed By: #### L AB15 ####Patient Services Technician: VELMA VALADEZ ([phone])[facility] ([facility])[address] [place] [address] Glucose [Mass/Vol] 101 mg/dL High 70-100 [facility] Comment on above: Performed By: #### L AB15 ####Patient Services Technician: VELMA VALADEZ ([phone])[facility] ([facility])[address] [place] [address] Potassium [Moles/Vol] 3.8 mmol/L Normal 3.5-5.1 [facility] Comment on above: Performed By: #### L AB15 ####Patient Services Technician: VELMA VALADEZ ([phone])[facility] ([facility])[address] [place] [address] Sodium [Moles/Vol] 136 mmol/L Normal 135-145 [facility] Comment on above: Performed By: #### L AB15 ####Patient Services Technician: VELMA VALADEZ ([phone])[facility] ([facility])[address] [place] [address] Urea nitrogen [Mass/Vol] 15 mg/dL Normal 7-17 [facility] Comment on above: Performed By: #### L AB15 ####Patient Services Technician: VELMA VALADEZ ([phone])[facility])[address] [place] [address] Basic metabolic 1998 panelon 04-10-2024 Anion gap [Moles/Vol] 3 mmol/L 3 - 13 mmol/L [facility] Calcium [Mass/Vol] 9.0 mg/dL 8.4 - 10. 4 mg/dL [facility] Chloride [Moles/Vol] 111 mmol/L High 98 - 10 7 mmol/L [facility] CO2 [Moles/Vol] 21 mmol/L Low 22 - 30 mmol/L [facility] Creatinine [Mass/Vol] 1.00 mg/dL 0.52 - 1.04 mg/dL [facility] GFR/1.73 sq M.predicted (S/P/Bld) [Vol rate/Area] 55.7 mL/min Low - PINF [facility] Comment on above: Calculation based on the Chronic Kidney Disease Epidemiology Collaboration (CKD-EPI) equation refit without adjustment for race Glucose [Mass/Vol] 101 mg/dL High 70 - 100 mg/dL [facility] Interpretation and review of laboratory results Abnormal [facility] Potassium [Moles/Vol] 3.8 mmol/L 3.5 - 5.1 mmol/L [facility] Sodium [Moles/Vol] 136 mmol/L 135 - 145 mmol/L [facility] Urea nitrogen [Mass/Vol] 15 mg/dL 7 - 17 mg/dL [facility] CARECOORDon 04-10-2024 CARECOHENDERSON Normal [facility] CBC W Auto Differential pane l (Bld)on 04-10-2024 Basophils (Bld) [#/Vol] 0.0 10*3/uL 0.0 - 0.2 10*3/uL [facility] Basophils/100 WBC (Bld) 0.7 % 0.0 - 2.0 % [facility] Eosinophils (Bld) [#/Vol] 0.1 10*3/uL 0.0 - 0.5 10*3/uL [facility] Eosinophils/100 WBC (Bld) 2.1 % 0.0 - 6.0 % [facility] Erythrocyte distribution width (RBC) [Ratio] 14.7 % 11.5 - 15.0 % [facility] Hematocrit (Bld) [Volume fraction] 26.0 % Low 35.0 - 47.0 % [facility] Hemoglobin (Bld) [Mass/Vol] 8.6 g/dL Low 11.7 - 16.0 g/dL [facility] Immature granulocytes (Bld) [#/Vol] 0.0 10*3/uL NINF - 0.1 10*3/uL [facility] Immature granulocytes/100 WBC (Bld) 0.2 % 0.0 - 2.0 % [facility] Interpretation and review of laboratory results Abnormal [facility] Lymphocytes (Bld) [#/Vol] 1.4 10*3/uL 1.0 - 4.3 10*3/uL [facility] Lymphocytes/100 WBC (Bld) 32.9 % 15.0 - 45.0 % [facility] MCH (RBC) [Entitic mass] 30.1 pg 26.0 - 34.0 pg [facility] MCHC (RBC) [Mass/Vol] 33.1 % 30.5 - 36.0 % [facility] MCV (RBC) [Entitic vol] 90.9 fL 77.0 - 99.0 fL [facility] Monocytes (Bld) [#/Vol] 0.6 10*3/uL 0.0 - 0.9 10*3/uL [facility] Monocytes/100 WBC (Bld) 13.6 % High 5.0 - 13.0 % [facility] Neutrophils (Bld) [#/Vol] 2.1 10*3/uL 1.8 - 7.5 10*3/uL [facility] Neutrophils/100 WBC (Bld) 50.5 % 38.0 - 82.0 % [facility] Nucleated RBC/100 WBC (Bld) [Ratio] 0.0 % [facility] Platelet mean volume (Bld) [Entitic vol] 10.0 fL 9.0 - 12.7 fL [facility] Platelets (Bld) [#/Vol] 238 10*3/uL 140 - 440 10*3/uL [facility] RBC (Bld) [#/Vol] 2.86 10*6/uL Low 3.80 - 5.2 0 10*6/uL [facility] WBC (Bld) [#/Vol] 4.3 10*3/uL 3.6 - 10.7 10*3/uL [facility] CBC WITH AUTO DIFFERENTIALon 04-10-2024 Basophils (Bld) [#/Vol] 0.0 10*3/uL Normal 0.0-0.2 [facility] Comment on above: Performed By: #### L [id number] ####Patient Services Technician: VELMA VALADEZ ([phone])[facility] ([facility])[address] [place] [address] Basophils/100 WBC (Bld) 0.7 % Normal 0.0-2.0 [facility] Comment on above: Performed By: #### L [id number] ####Patient Services Technician: VELMA VALADEZ ([phone])[facility] ([facility])[address] [place] [address] Eosinophils (Bld) [#/Vol] 0.1 10*3/uL Normal 0.0-0.5 [facility] Comment on above: Performed By: #### L [id number] ####Patient Services Technician: VELMA VALADEZ ([phone])[facility])[address] [place] [address] Eosinophils/100 WBC (Bld) 2.1 % Normal 0.0-6.0 [facility] Comment on above: Performed By: #### L [id number] ####Patient Services Technician: VELMA VALADEZ ([phone])[facility])[address] [place] [address] Erythrocyte distribution width (RBC) [Ratio] 14.7 % Normal 11.5-15.0 [facility] Comment on above: Performed By: #### L [id number] ####Patient Services Technician: VELMA VALADEZ ([phone])[address] Hematocrit (Bld) [Volume fraction] 26.0 % Low 35.0-47.0 [facility] Comment on above: Performed By: #### L [id number] ####Patient Services Technician: VELMA VALADEZ ([phone])[address] Hemoglobin (Bld) [Mass/Vol] 8.6 g/dL Low 11.7-16.0 [facility] Comment on above: Performed By: #### L [id number] ####Patient Services Technician: VELMA VALADEZ ([phone])[address] IMMATURE GRANS % 0.2 % Normal 0.0-2.0 [facility] Comment on above: Performed By: #### L [id number] ####Patient Services Technician: VELMA VALADEZ ([phone])[address] IMMATURE GRANS ABSOLUTE 0.0 10*3/uL Normal <0.1 [facility] Comment on above: Performed By: #### L [id number] ####Patient Services Technician: VELMA VALADEZ ([phone])[facility])[address] [place] [address] Lymphocytes (Bld) [#/Vol] 1.4 10*3/uL Normal 1.0-4.3 [facility] Comment on above: Performed By: #### L [id number] ####Patient Services Technician: VELMA VALADEZ ([phone])[facility])[address] [place] [address] Lymphocytes/100 WBC (Bld) 32.9 % Normal 15.0-45.0 [facility] Comment on above: Performed By: #### L [id number] ####Patient Services Technician: VELMA VALADEZ ([phone])[address] MCH (RBC) [Entitic mass] 30.1 pg Normal 26.0-34.0 [facility] Comment on above: Performed By: #### L [id number] ####Patient Services Technician: VELMA VALADEZ ([phone])[facility])[address] [place] [address] MCHC 33.1 % Normal 30.5-36.0 [facility] Comment on above: Performed By: #### L [id number] ####Patient Services Technician: VELMA VALADEZ ([phone])[facility])[address] [place] [address] MCV (RBC) [Entitic vol] 90.9 fL Normal 77.0-99.0 [facility] Comment on above: Performed By: #### L [id number] ####Patient Services Technician: VELMA VALADEZ ([phone])[facility])[address] [place] [address] Monocytes (Bld) [#/Vol] 0.6 10*3/uL Normal 0.0-0.9 [facility] Comment on above: Performed By: #### L [id number] ####Patient Services Technician: VELMA VALADEZ ([phone])[facility])[address] [place] [address] Monocytes/100 WBC (Bld) 13.6 % High 5.0-13.0 [facility] Comment on above: Performed By: #### L [id number] ####Patient Services Technician: VELMA VALADEZ ([phone])[facility] ([facility])[address] [place] [address] NEUTROPHILS ABSOLUTE 2.1 10*3/uL Normal 1.8-7.5 [facility] Comment on above: Performed By: #### L [id number] ####Patient Services Technician: VELMA VALADEZ ([phone])[facility] ([facility])[address] [place] [address] Neutrophils/100 WBC (Bld) 50.5 % Normal 38.0-82.0 [facility] Comment on above: Performed By: #### L [id number] ####Patient Services Technician: VELMA VALADEZ ([phone])[facility] ([facility])[address] [place] [address] NRBC 0.0 /100 WBCs Normal 0.0-2.0 [facility] Comment on above: Performed By: #### L [id number] ####Patient Services Technician: VELMA VALADEZ ([phone])[facility] ([facility])[address] [place] [address] Platelet mean volume (Bld) [Entitic vol] 10.0 fL Normal 9.0-12.7 [facility] Comment on above: Performed By: #### L [id number] ####Patient Services Technician: VELMA VALADEZ ([phone])[facility] ([facility])[address] [place] [address] [place] Platelets (Bld) [#/Vol] 238 10*3/uL Normal 140-440 [facility] Comment on above: Performed By: #### L [id number] ####Patient Services Technician: VELMA VALADEZ ([phone])[facility] ([facility])[address] [place] [address] RBC (Bld) [#/Vol] 2.86 10*6/uL Low 3.80-5.20 [facility] Comment on above: Performed By: #### L [id number] ####Patient Services Technician: VELMA VALADEZ ([phone])[facility])[address] [place] [address] WBC (Bld) [#/Vol] 4.3 10*3/uL Normal 3.6-10.7 [facility] Comment on above: Performed By: #### L [id number] ####Patient Services Technician: VELMA VALADEZ ([phone])[facility] ([facility])[address] [place] [address] IDNon 04-10-2024 IDN Normal [facility] Laboratory - Coagulationon 0 04-10-2024 PT Coag (Bld) [Time] 17.7 s High 9.0 - 1 2.0 s [facility] No Panel Informationon 04-10 Interpretation and review of laboratory results Abnormal [facility] PROTHROMBIN TIMEon INR Coag (PPP) [Relative time] 1.6 {INR} High 0.9-1.1 [facility] Comment on above: Result Comment: Timothy [...] Myocardial Infarction Performed By: #### L [id number], [id number] ####Patient Services Technician: VELMA VALADEZ ([phone])[facility] ([facility])[address] [place] [address] PT Coag (PPP) [Time] 17.7 s High 9.0-12.0 [facility] Comment on above: Performed By: #### L [id number], [id number] ####Patient Services Technician: VELMA VALADEZ ([phone])[facility])[address] [place] [address] [place] PT Coag (Bld) [Time]on 04-10 INR Coag (PPP) [Relative time] 1.6 {INR} High 0.9 - 1.1 [facility] Comment on above: Recommended Anticoag ulant Therapy: [...] Infarction Progress Noteon 04-10-2024 Progress Note Normal [facility] Progress Note Nutrition update completed. Chart reviewed. Patient to be monitored and followed by the diet optics test technician. Jessica Doran, FADI Normal [facility] Progress Note Normal [facility] aPTT Coag (Bld) [Time]on aPTT Coag (PPP) [Time] 59.0 s High 20.0 - 30.5 s [facility] Interpretation and review of laboratory results Abnormal [facility] NOTE: The therapeuti c time for Heparin anticoagulation, based on Xa activity inhibition, is an APTT of 46-80 seconds. [facility] aPTT Coag (PPP) [Time] 77.3 s High 20.0 - 30.5 s [facility] NOTE: The therapeuti c time for Heparin anticoagulation, based on Xa activity inhibition, is an APTT of 46-80 seconds. [facility] APTTon 04-09-2024 aPTT Coag (Bld) [Time] 58.9 s High 20.0-30.5 [facility] Comment on above: Result Comment: BUBBA Garcia COMMENTS:NOTE: The therapeutic time for Heparin anticoagulation, based on Xa activity inhibition, is an APTT of 46-80 seconds. Performed By: #### L [id number] ####Patient Services Technician: VELMA VALADEZ ([phone])[facility] ([facility])[address] [place] [address] aPTT Coag (Bld) [Time] 64.6 s High 20.0-30.5 [facility] Comment on above: Result Comment: BUBBA Garcia COMMENTS:NOTE: The therapeutic time for Heparin anticoagulation, based on Xa activity inhibition, is an APTT of 46-80 seconds. Performed By: #### L [id number] ####Patient Services Technician: VELMA VALADEZ ([phone])[facility] ([facility])[address] [place] [address] aPTT Coag (Bld) [Time] 82.3 s High 20.0-30.5 [facility] Comment on above: Result Comment: BUBBA Garcia COMMENTS:NOTE: The therapeutic time for Heparin anticoagulation, based on Xa activity inhibition, is an APTT of 46-80 seconds. Performed By: #### L [id number], [id number] ####Patient Services Technician: VELMA VALADEZ ([phone])[facility] ([facility])[address] [place] [address] BASIC METABOLIC PANELon 09-2 Anion gap [Moles/Vol] 5 mmol/L Normal 3-13 [facility] Comment on above: Performed By: #### L [id number] ####Patient Services Technician: VELMA VALADEZ ([phone])[facility] ([facility])[address] [place] [address] Calcium [Mass/Vol] 8.9 mg/dL Normal 8.4-10.4 [facility] Comment on above: Performed By: #### L [id number] ####Patient Services Technician: VELMA VALADEZ ([phone])[facility] ([facility])[address] [place] [address] Chloride [Moles/Vol] 116 mmol/L High 98-107 [facility] Comment on above: Performed By: #### L AB15 ####Patient Services Technician: VELMA VALADEZ ([phone])[facility] ([facility])[address] [place] [address] CO2 [Moles/Vol] 16 mmol/L Low 22-30 [facility] Comment on above: Performed By: #### L AB15 ####Patient Services Technician: VELMA VALADEZ ([phone])[facility] ([facility])[address] [place] [address] Creatinine [Mass/Vol] 0.93 mg/dL Normal 0.52-1.04 [facility] Comment on above: Performed By: #### L AB15 ####Patient Services Technician: VELMA VALADEZ ([phone])[facility] ([facility])[address] [place] [address] [place] GLOMERULAR FILTRATION RATE ML/MIN/1.73 SQ M.PREDICTED 60.7 mL/min/1.73m*2 Normal >60.0 [facility] Comment on above: Result Comment: Calc ulation based on the Chronic Kidney Disease Epidemiology Collaboration (CKD-EPI) equation refit without adjustment for race Performed By: #### L AB15 ####Patient Services Technician: VELMA VALADEZ ([phone])[facility] ([facility])[address] [place] [address] Glucose [Mass/Vol] 119 mg/dL High 70-100 [facility] Comment on above: Performed By: #### L AB15 ####Patient Services Technician: VELMA VALADEZ ([phone])[facility] ([facility])[address] [place] [address] [place] Potassium [Moles/Vol] 4.4 mmol/L Normal 3.5-5.1 [facility] Comment on above: Performed By: #### L AB15 ####Patient Services Technician: VELMA VALADEZ ([phone])[facility] ([facility])[address] [place] [address] [place] Sodium [Moles/Vol] 136 mmol/L Normal 135-145 [facility] Comment on above: Performed By: #### L AB15 ####Patient Services Technician: VELMA VALADEZ ([phone])[facility] ([facility])[address] [place] [address] [place] Urea nitrogen [Mass/Vol] 16 mg/dL Normal 7-17 [facility] Comment on above: Performed By: #### L AB15 ####Patient Services Technician: VELMA VALADEZ ([phone])[facility] ([facility])[address] [place], [place] [id number] [facility] Basic metabolic 1998 panelon 04-09-2024 Anion gap [Moles/Vol] 5 mmol/L 3 - 13 mmol/L [facility] Calcium [Mass/Vol] 8.9 mg/dL 8.4 - 10. 4 mg/dL [facility] Chloride [Moles/Vol] 116 mmol/L High 98 - 10 7 mmol/L [facility] CO2 [Moles/Vol] 16 mmol/L Low 22 - 30 mmol/L [facility] Creatinine [Mass/Vol] 0.93 mg/dL 0.52 - 1.04 mg/dL [facility] GFR/1.73 sq M.predicted (S/P/Bld) [Vol rate/Area] 60.7 mL/min - PINF [facility] Comment on above: Calculation based on the Chronic Kidney Disease Epidemiology Collaboration (CKD-EPI) equation refit without adjustment for race Glucose [Mass/Vol] 119 mg/dL High 70 - 100 mg/dL [facility] Interpretation and review of laboratory results Abnormal [facility] Potassium [Moles/Vol] 4.4 mmol/L 3.5 - 5.1 mmol/L [facility] Sodium [Moles/Vol] 136 mmol/L 135 - 145 mmol/L [facility] Urea nitrogen [Mass/Vol] 16 mg/dL 7 - 17 mg/dL [facility] CARECOORDon 04-09-2024 CARECOHENDERSON Normal [facility] SHS CBC W Auto Differential pane l (Bld)on 04-09-2024 Basophils (Bld) [#/Vol] 0.0 10*3/uL 0.0 - 0.2 10*3/uL [facility] Basophils/100 WBC (Bld) 0.6 % 0.0 - 2.0 % [facility] Eosinophils (Bld) [#/Vol] 0.1 10*3/uL 0.0 - 0.5 10*3/uL [facility] Eosinophils/100 WBC (Bld) 0.9 % 0.0 - 6.0 % [facility] Erythrocyte distribution width (RBC) [Ratio] 14.8 % 11.5 - 15.0 % [facility] Hematocrit (Bld) [Volume fraction] 28.2 % Low 35.0 - 47.0 % [facility] Hemoglobin (Bld) [Mass/Vol] 9.0 g/dL Low 11.7 - 16.0 g/dL [facility] [employer] Immature granulocytes (Bld) [#/Vol] 0.0 10*3/uL NINF - 0.1 10*3/uL [facility] Immature granulocytes/100 WBC (Bld) 0.4 % 0.0 - 2.0 % [facility] Interpretation and review of laboratory results Abnormal [facility] Lymphocytes (Bld) [#/Vol] 2.2 10*3/uL 1.0 - 4.3 10*3/uL [facility] Lymphocytes/100 WBC (Bld) 31.2 % 15.0 - 45.0 % [facility] MCH (RBC) [Entitic mass] 29.8 pg 26.0 - 34.0 pg [facility] MCHC (RBC) [Mass/Vol] 31.9 % 30.5 - 36.0 % [facility] MCV (RBC) [Entitic vol] 93.4 fL 77.0 - 99.0 fL [facility] Monocytes (Bld) [#/Vol] 0.7 10*3/uL 0.0 - 0.9 10*3/uL [facility] Monocytes/100 WBC (Bld) 10.7 % 5.0 - 13.0 % [facility] Neutrophils (Bld) [#/Vol] 3.9 10*3/uL 1.8 - 7.5 10*3/uL [facility] Neutrophils/100 WBC (Bld) 56.2 % 38.0 - 82.0 % [facility] Nucleated RBC/100 WBC (Bld) [Ratio] 0.0 % [facility] Platelet mean volume (Bld) [Entitic vol] 10.2 fL 9.0 - 12.7 fL [facility] Platelets (Bld) [#/Vol] 235 10*3/uL 140 - 440 10*3/uL [facility] RBC (Bld) [#/Vol] 3.02 10*6/uL Low 3.80 - 5.2 0 10*6/uL [facility] WBC (Bld) [#/Vol] 6.9 10*3/uL 3.6 - 10.7 10*3/uL [facility] CBC WITH AUTO DIFFERENTIALon 04-09-2024 Basophils (Bld) [#/Vol] 0.0 10*3/uL Normal 0.0-0.2 [facility] Comment on above: Performed By: #### L [id number] ####Patient Services Technician: VELMA VALADEZ ([phone])[facility])[address] [place] [address] Basophils/100 WBC (Bld) 0.6 % Normal 0.0-2.0 S [facility] Comment on above: Performed By: #### L [id number] ####Patient Services Technician: VELMA VALADEZ ([phone])[facility] ([facility])[address] [place] [address] Eosinophils (Bld) [#/Vol] 0.1 10*3/uL Normal 0.0-0.5 [facility] Comment on above: Performed By: #### L [id number] ####Patient Services Technician: VELMA VALADEZ ([phone])[facility])[address] [place] [address] Eosinophils/100 WBC (Bld) 0.9 % Normal 0.0-6.0 [facility] Comment on above: Performed By: #### L [id number] ####Patient Services Technician: VELMA VALADEZ ([phone])[facility])[address] [place] [address] Erythrocyte distribution width (RBC) [Ratio] 14.8 % Normal 11.5-15.0 [facility] Comment on above: Performed By: #### L [id number] ####Patient Services Technician: VELMA VALADEZ ([phone])[facility])[address] [place] [address] Hematocrit (Bld) [Volume fraction] 28.2 % Low 35.0-47.0 [facility] Comment on above: Performed By: #### L [id number] ####Patient Services Technician: VELMA VALADEZ ([phone])[facility])[address] [place] [address] Hemoglobin (Bld) [Mass/Vol] 9.0 g/dL Low 11.7-16.0 [facility] Comment on above: Performed By: #### L [id number] ####Patient Services Technician: VELMA VALADEZ ([phone])[facility])[address] [place] [address] IMMATURE GRANS % 0.4 % Normal 0.0-2.0 [facility] Comment on above: Performed By: #### L [id number] ####Patient Services Technician: VELMA VALADEZ ([phone])[facility])[address] [place] [address] IMMATURE GRANS ABSOLUTE 0.0 10*3/uL Normal <0.1 [facility] Comment on above: Performed By: #### L [id number] ####Patient Services Technician: VELMA VALADEZ ([phone])[address] Lymphocytes (Bld) [#/Vol] 2.2 10*3/uL Normal 1.0-4.3 [facility] Comment on above: Performed By: #### L [id number] ####Patient Services Technician: VELMA VALADEZ ([phone])[facility])[address] [place] [address] Lymphocytes/100 WBC (Bld) 31.2 % Normal 15.0-45.0 [facility] Comment on above: Performed By: #### L [id number] ####Patient Services Technician: VELMA VALADEZ ([phone])[facility])[address] [place] [address] MCH (RBC) [Entitic mass] 29.8 pg Normal 26.0-34.0 [facility] Comment on above: Performed By: #### L [id number] ####Patient Services Technician: VELMA VALADEZ ([phone])[address] MCHC 31.9 % Normal 30.5-36.0 [facility] Comment on above: Performed By: #### L [id number] ####Patient Services Technician: VELMA VALADEZ ([phone])[facility] ([facility])[address] [place] [address] MCV (RBC) [Entitic vol] 93.4 fL Normal 77.0-99.0 [facility] Comment on above: Performed By: #### L [id number] ####Patient Services Technician: VELMA VALADEZ ([phone])[facility] ([facility])[address] [place] [address] Monocytes (Bld) [#/Vol] 0.7 10*3/uL Normal 0.0-0.9 [facility] Comment on above: Performed By: #### L [id number] ####Patient Services Technician: VELMA VALADEZ ([phone])[facility] ([facility])[address] [place] [address] Monocytes/100 WBC (Bld) 10.7 % Normal 5.0-13.0 [facility] Comment on above: Performed By: #### L [id number] ####Patient Services Technician: VELMA VALADEZ ([phone])[facility] ([facility])[address] [place] [address] NEUTROPHILS ABSOLUTE 3.9 10*3/uL Normal 1.8-7.5 [facility] Comment on above: Performed By: #### L [id number] ####Patient Services Technician: VELMA VALADEZ ([phone])[facility] ([facility])[address] [place] [address] Neutrophils/100 WBC (Bld) 56.2 % Normal 38.0-82.0 [facility] Comment on above: Performed By: #### L [id number] ####Patient Services Technician: VELMA VALADEZ ([phone])[facility] ([facility])[address] [place] [address] [place] NRBC 0.0 /100 WBCs Normal 0.0-2.0 [facility] Comment on above: Performed By: #### L [id number] ####Patient Services Technician: VELMA VALADEZ ([phone])[facility] ([facility])[address] [place] [address] Platelet mean volume (Bld) [Entitic vol] 10.2 fL Normal 9.0-12.7 [facility] Comment on above: Performed By: #### L [id number] ####Patient Services Technician: VELMA VALADEZ ([phone])[facility] ([facility])[address] [place] [address] Platelets (Bld) [#/Vol] 235 10*3/uL Normal 140-440 [facility] Comment on above: Performed By: #### L [id number] ####Patient Services Technician: VELMA VALADEZ ([phone])[facility] ([facility])[address] [place] [address] RBC (Bld) [#/Vol] 3.02 10*6/uL Low 3.80-5.20 [facility] Comment on above: Performed By: #### L [id number] ####Patient Services Technician: VELMA VALADEZ ([phone])[facility] ([facility])[address] [place] [address] WBC (Bld) [#/Vol] 6.9 10*3/uL Normal 3.6-10.7 [facility] Comment on above: Performed By: #### L [id number] ####Patient Services Technician: VELMA VALADEZ ([phone])[facility] ([facility])[address] [place] [address] Laboratory - Coagulationon 0 04-09-2024 PT Coag (Bld) [Time] 13.8 s High 9.0 - 1 2.0 s [facility] No Panel Informationon 04-09 Interpretation and review of laboratory results Abnormal [facility] PROTHROMBIN TIMEon INR Coag (PPP) [Relative time] 1.2 {INR} High 0.9-1.1 [facility] Comment on above: Result Comment: Timothy [...] Myocardial Infarction Performed By: #### L [id number], [id number] ####Patient Services Technician: VELMA VALADEZ ([phone])[facility] ([facility])[address] [place] [address] PT Coag (PPP) [Time] 13.8 s High 9.0-12.0 [facility] Comment on above: Performed By: #### L [id number], [id number] ####Patient Services Technician: VELMA VALADEZ ([phone])[facility] ([facility])[address] [place] [address] PT Coag (Bld) [Time]on 04-09 INR Coag (PPP) [Relative time] 1.2 {INR} High 0.9 - 1.1 [facility] Comment on above: Recommended Anticoag ulant Therapy: [...] Infarction Progress Noteon 04-09-2024 Progress Note Normal [facility] Progress Note Normal [facility] XR CHEST 1 VIEWon 04-09-2024 XR CHEST 1 VIEW Normal [facility] XR Chest Single viewon 04-09 Mild cardiomegaly and pulmonary venous congestion with small pleural effusions. Report Dictated on Electronically Signed By: Di Leggett MD Electronically Signed Date/Time: 04/09/2024 1:42 PM [facility] Patient Name: MEL CARVER RD [...] the left shoulder. No acute osseous findings. [facility] Di Leggett M D - 04/09/2024 Patient Name: MEL POP : 1940 [facility]#: [id number] Exam Date/Time: 04/09/2024 14:11 Procedure: XR CHEST [...] Electronically Signed Date/Time: 04/09/2024 1:42 PM EDT [facility] Radiology Study observation (narrative) [facility] XR Chest Single viewOrdered By: Di Leggett on 04-09-2024 [employer] Work Phone: aPTT Coag (Bld) [Time]on aPTT Coag (PPP) [Time] 58.9 s High 20.0 - 30.5 s [facility] [employer] Interpretation and review of laboratory results Abnormal [facility] NOTE: The therapeuti c time for Heparin anticoagulation, based on Xa activity inhibition, is an APTT of 46-80 seconds. [facility] aPTT Coag (PPP) [Time] 64.6 s High 20.0 - 30.5 s [facility] Interpretation and review of laboratory results Abnormal [facility] NOTE: The therapeuti c time for Heparin anticoagulation, based on Xa activity inhibition, is an APTT of 46-80 seconds. [facility] aPTT Coag (PPP) [Time] 82.3 s High 20.0 - 30.5 s [facility] NOTE: The therapeuti c time for Heparin anticoagulation, based on Xa activity inhibition, is an APTT of 46-80 seconds. [facility] APTTon 04-08-2024 aPTT Coag (Bld) [Time] 51.5 s High 20.0-30.5 [facility] Comment on above: Result Comment: BUBBA Garcia COMMENTS:NOTE: The therapeutic time for Heparin anticoagulation, based on Xa activity inhibition, is an APTT of 46-80 seconds. Performed By: #### L [id number] ####Patient Services Technician: VELMA VALADEZ ([phone])[address] aPTT Coag (Bld) [Time] 59.8 s High 20.0-30.5 [facility] Comment on above: Result Comment: BUBBA Garcia COMMENTS:NOTE: The therapeutic time for Heparin anticoagulation, based on Xa activity inhibition, is an APTT of 46-80 seconds. Performed By: #### L [id number] ####Patient Services Technician: VELMA VALADEZ ([phone])[address] aPTT Coag (Bld) [Time] 41.4 s High 20.0-30.5 [facility] Comment on above: Result Comment: BUBBA R COMMENTS:NOTE: The therapeutic time for Heparin anticoagulation, based on Xa activity inhibition, is an APTT of 46-80 seconds. Performed By: #### L [id number], [id number] ####Patient Services Technician: VELMA VALADEZ ([phone])[facility] ([facility])[address] [place] [address] BASIC METABOLIC PANELon - Anion gap [Moles/Vol] 5 mmol/L Normal 3-13 [facility] Comment on above: Performed By: #### L [id number] ####Patient Services Technician: VELMA VALADEZ ([phone])[facility] ([facility])[address] [place] [address] Calcium [Mass/Vol] 8.9 mg/dL Normal 8.4-10.4 [facility] Comment on above: Performed By: #### L AB15 ####Patient Services Technician: VELMA VALADEZ ([phone])[facility] ([facility])[address] [place] [address] Chloride [Moles/Vol] 113 mmol/L High 98-107 [facility] Comment on above: Performed By: #### L [id number] ####Patient Services Technician: VELMA VALADEZ ([phone])[facility] ([facility])[address] [place] [address] CO2 [Moles/Vol] 17 mmol/L Low 22-30 [facility] Comment on above: Performed By: #### L AB15 ####Patient Services Technician: VELMA VALADEZ ([phone])[facility] ([facility])[address] [place] [address] Creatinine [Mass/Vol] 0.98 mg/dL Normal 0.52-1.04 [facility] Comment on above: Performed By: #### L [id number] ####Patient Services Technician: VELMA VALADEZ ([phone])[facility] ([facility])[address] [place] [address] [place] GLOMERULAR FILTRATION RATE ML/MIN/1.73 SQ M.PREDICTED 57.0 mL/min/1.73m*2 Low >60.0 [facility] Comment on above: Result Comment: Calc ulation based on the Chronic Kidney Disease Epidemiology Collaboration (CKD-EPI) equation refit without adjustment for race Performed By: #### L AB15 ####Patient Services Technician: VELMA VALADEZ ([phone])[facility] ([facility])[address] [place] [address] [place] Glucose [Mass/Vol] 116 mg/dL High 70-100 [facility] Comment on above: Performed By: #### L AB15 ####Patient Services Technician: VELMA VALADEZ ([phone])[facility])[address] [place] [address] Potassium [Moles/Vol] 4.5 mmol/L Normal 3.5-5.1 [facility] Comment on above: Performed By: #### L AB15 ####Patient Services Technician: VELMA VALADEZ ([phone])[facility])[address] [place] [address] Sodium [Moles/Vol] 135 mmol/L Normal 135-145 [facility] Comment on above: Performed By: #### L AB15 ####Patient Services Technician: VELMA VALADEZ ([phone])[facility])[address] [place] [address] Urea nitrogen [Mass/Vol] 18 mg/dL High 7-17 [facility] Comment on above: Performed By: #### L AB15 ####Patient Services Technician: VELMA VALADEZ ([phone])[facility] ([facility])[address] [place] [address] Basic metabolic 1998 panelon 04-08-2024 Anion gap [Moles/Vol] 5 mmol/L 3 - 13 mmol/L [facility] Calcium [Mass/Vol] 8.9 mg/dL 8.4 - 10. 4 mg/dL [facility] Chloride [Moles/Vol] 113 mmol/L High 98 - 10 7 mmol/L [facility] CO2 [Moles/Vol] 17 mmol/L Low 22 - 30 mmol/L [facility] Creatinine [Mass/Vol] 0.98 mg/dL 0.52 - 1.04 mg/dL [facility] GFR/1.73 sq M.predicted (S/P/Bld) [Vol rate/Area] 57.0 mL/min Low - PINF [facility] Comment on above: Calculation based on the Chronic Kidney Disease Epidemiology Collaboration (CKD-EPI) equation refit without adjustment for race Glucose [Mass/Vol] 116 mg/dL High 70 - 100 mg/dL [facility] Interpretation and review of laboratory results Abnormal [facility] Potassium [Moles/Vol] 4.5 mmol/L 3.5 - 5.1 mmol/L [facility] Sodium [Moles/Vol] 135 mmol/L 135 - 145 mmol/L [facility] Urea nitrogen [Mass/Vol] 18 mg/dL High 7 - 17 mg/dL [facility] CBC W Auto Differential pane l (Bld)on 04-08-2024 Basophils (Bld) [#/Vol] 0.0 10*3/uL 0.0 - 0.2 10*3/uL [facility] Basophils/100 WBC (Bld) 0.5 % 0.0 - 2.0 % [facility] Eosinophils (Bld) [#/Vol] 0.1 10*3/uL 0.0 - 0.5 10*3/uL [facility] Eosinophils/100 WBC (Bld) 0.9 % 0.0 - 6.0 % [facility] Erythrocyte distribution width (RBC) [Ratio] 14.8 % 11.5 - 15.0 % [facility] Hematocrit (Bld) [Volume fraction] 27.0 % Low 35.0 - 47.0 % [facility] Hemoglobin (Bld) [Mass/Vol] 8.6 g/dL Low 11.7 - 16.0 g/dL [facility] Immature granulocytes (Bld) [#/Vol] 0.0 10*3/uL NINF - 0.1 10*3/uL [facility] Immature granulocytes/100 WBC (Bld) 0.4 % 0.0 - 2.0 % [facility] Interpretation and review of laboratory results Abnormal [facility] Lymphocytes (Bld) [#/Vol] 1.7 10*3/uL 1.0 - 4.3 10*3/uL [facility] Lymphocytes/100 WBC (Bld) 23.3 % 15.0 - 45.0 % [facility] MCH (RBC) [Entitic mass] 30.2 pg 26.0 - 34.0 pg [facility] MCHC (RBC) [Mass/Vol] 31.9 % 30.5 - 36.0 % [facility] MCV (RBC) [Entitic vol] 94.7 fL 77.0 - 99.0 fL [facility] Monocytes (Bld) [#/Vol] 0.8 10*3/uL 0.0 - 0.9 10*3/uL [facility] Monocytes/100 WBC (Bld) 10.2 % 5.0 - 13.0 % [facility] Neutrophils (Bld) [#/Vol] 4.8 10*3/uL 1.8 - 7.5 10*3/uL [facility] Neutrophils/100 WBC (Bld) 64.7 % 38.0 - 82.0 % [facility] Nucleated RBC/100 WBC (Bld) [Ratio] 0.0 % [facility] Platelet mean volume (Bld) [Entitic vol] 10.1 fL 9.0 - 12.7 fL [facility] Platelets (Bld) [#/Vol] 223 10*3/uL 140 - 440 10*3/uL [facility] RBC (Bld) [#/Vol] 2.85 10*6/uL Low 3.80 - 5.2 0 10*6/uL [facility] WBC (Bld) [#/Vol] 7.5 10*3/uL 3.6 - 10.7 10*3/uL [facility] CBC WITH AUTO DIFFERENTIALon 04-08-2024 Basophils (Bld) [#/Vol] 0.0 10*3/uL Normal 0.0-0.2 [facility] Comment on above: Performed By: #### L [id number] ####Patient Services Technician: VELMA VALADEZ ([phone])[facility])[address] [place] [address] Basophils/100 WBC (Bld) 0.5 % Normal 0.0-2.0 S [facility] Comment on above: Performed By: #### L [id number] ####Patient Services Technician: VELMA VALADEZ ([phone])[facility] ([facility])[address] [place] [address] [place] Eosinophils (Bld) [#/Vol] 0.1 10*3/uL Normal 0.0-0.5 [facility] Comment on above: Performed By: #### L [id number] ####Patient Services Technician: VELMA VALADEZ ([phone])[facility] ([facility])[address] [place] [address] [place] Eosinophils/100 WBC (Bld) 0.9 % Normal 0.0-6.0 [facility] Comment on above: Performed By: #### L [id number] ####Patient Services Technician: VLEMA VALADEZ ([phone])[address] Erythrocyte distribution width (RBC) [Ratio] 14.8 % Normal 11.5-15.0 [facility] Comment on above: Performed By: #### L [id number] ####Patient Services Technician: VELMA VALADEZ ([phone])[address] Hematocrit (Bld) [Volume fraction] 27.0 % Low 35.0-47.0 [facility] Comment on above: Performed By: #### L [id number] ####Patient Services Technician: VELMA VALADEZ ([phone])[address] Hemoglobin (Bld) [Mass/Vol] 8.6 g/dL Low 11.7-16.0 [facility] Comment on above: Performed By: #### L [id number] ####Patient Services Technician: VELMA VALADEZ ([phone])[address] IMMATURE GRANS % 0.4 % Normal 0.0-2.0 [facility] Comment on above: Performed By: #### L [id number] ####Patient Services Technician: VELMA VALADEZ ([phone])[address] IMMATURE GRANS ABSOLUTE 0.0 10*3/uL Normal <0.1 [facility] Comment on above: Performed By: #### L [id number] ####Patient Services Technician: VELMA VALADEZ ([phone])[address] Lymphocytes (Bld) [#/Vol] 1.7 10*3/uL Normal 1.0-4.3 [facility] Comment on above: Performed By: #### L [id number] ####Patient Services Technician: VELMA [phone])[facility] ([facility])[address] [place] [address] Lymphocytes/100 WBC (Bld) 23.3 % Normal 15.0-45.0 [facility] Comment on above: Performed By: #### L [id number] ####Patient Services Technician: VELMA VALADEZ ([phone])[facility])[address] [place] [address] MCH (RBC) [Entitic mass] 30.2 pg Normal 26.0-34.0 [facility] Comment on above: Performed By: #### L [id number] ####Patient Services Technician: VELMA VALADEZ ([phone])[facility])[address] [place] [address] MCHC 31.9 % Normal 30.5-36.0 [facility] Comment on above: Performed By: #### L [id number] ####Patient Services Technician: VELMA VALADEZ ([phone])[facility] ([facility])[address] [place] [address] MCV (RBC) [Entitic vol] 94.7 fL Normal 77.0-99.0 [facility] Comment on above: Performed By: #### L [id number] ####Patient Services Technician: VELMA VALADEZ ([phone])[facility])[address] [place] [address] Monocytes (Bld) [#/Vol] 0.8 10*3/uL Normal 0.0-0.9 [facility] Comment on above: Performed By: #### L [id number] ####Patient Services Technician: VELMA VALADEZ ([phone])[facility])[address] [place] [address] Monocytes/100 WBC (Bld) 10.2 % Normal 5.0-13.0 [facility] Comment on above: Performed By: #### L [id number] ####Patient Services Technician: VELMA VALADEZ ([phone])[facility])[address] [place] [address] NEUTROPHILS ABSOLUTE 4.8 10*3/uL Normal 1.8-7.5 [facility] Comment on above: Performed By: #### L [id number] ####Patient Services Technician: VELMA VALADEZ ([phone])[facility] ([facility])[address] [place] [address] Neutrophils/100 WBC (Bld) 64.7 % Normal 38.0-82.0 [facility] Comment on above: Performed By: #### L [id number] ####Patient Services Technician: VELMA VALADEZ ([phone])[facility] ([facility])[address] [place] [address] NRBC 0.0 /100 WBCs Normal 0.0-2.0 [facility] Comment on above: Performed By: #### L [id number] ####Patient Services Technician: VELMA VALADEZ ([phone])[facility] ([facility])[address] [place] [address] Platelet mean volume (Bld) [Entitic vol] 10.1 fL Normal 9.0-12.7 [facility] Comment on above: Performed By: #### L [id number] ####Patient Services Technician: VELMA VALADEZ ([phone])[facility] ([facility])[address] [place] [address] Platelets (Bld) [#/Vol] 223 10*3/uL Normal 140-440 [facility] Comment on above: Performed By: #### L [id number] ####Patient Services Technician: VELMA VALADEZ ([phone])[facility] ([facility])[address] [place] [address] [place] RBC (Bld) [#/Vol] 2.85 10*6/uL Low 3.80-5.20 [facility] Comment on above: Performed By: #### L [id number] ####Patient Services Technician: VELMA VALADEZ ([phone])[facility] ([facility])[address] [place] [address] [place] WBC (Bld) [#/Vol] 7.5 10*3/uL Normal 3.6-10.7 [facility] Comment on above: Performed By: #### Weston [id number] ####Patient Services Technician: VELMA VALADEZ ([phone])[facility])[address] [place] [address] [place] IDNon 04-08-2024 IDN Progressing Normal [facility] Laboratory - Coagulationon 0 04-08-2024 PT Coag (Bld) [Time] 11.2 s 9.0 - 1 2.0 s [facility] No Panel Informationon 04-08 [facility] PROTHROMBIN TIMEon INR Coag (PPP) [Relative time] 1.0 {INR} Normal 0.9-1.1 [facility] Comment on above: Result Comment: Timothy [...] Myocardial Infarction Performed By: #### Weston [id number], [id number] ####Patient Services Technician: VELMA VALADEZ ([phone])[facility])[address] [place] [address] PT Coag (PPP) [Time] 11.2 s Normal 9.0-12.0 [facility] Comment on above: Performed By: #### Weston AB325, [id number] ####Patient Services Technician: VELMA VALADEZ ([phone])[facility])[address] [place] [address] PT Coag (Bld) [Time]on 04-08 INR Coag (PPP) [Relative time] 1.0 {INR} 0.9 - 1.1 [facility] Comment on above: Recommended Anticoag ulant Therapy: [...] Interpretation and review of laboratory results Normal [facility] Progress Noteon 04-08-2024 Progress Note Normal [facility] Progress Note Normal [facility] aPTT Coag (Bld) [Time]on aPTT Coag (PPP) [Time] 51.5 s High 20.0 - 30.5 s [facility] Interpretation and review of laboratory results Abnormal [facility] NOTE: The therapeuti c time for Heparin anticoagulation, based on Xa activity inhibition, is an APTT of 46-80 seconds. [facility] aPTT Coag (PPP) [Time] 59.8 s High 20.0 - 30.5 s [facility] Interpretation and review of laboratory results Abnormal [facility] NOTE: The therapeuti c time for Heparin anticoagulation, based on Xa activity inhibition, is an APTT of 46-80 seconds. [facility] aPTT Coag (PPP) [Time] 41.4 s High 20.0 - 30.5 s [facility] Interpretation and review of laboratory results Abnormal [facility] NOTE: The therapeuti c time for Heparin anticoagulation, based on Xa activity inhibition, is an APTT of 46-80 seconds. [facility] APTTon 04-07-2024 aPTT Coag (Bld) [Time] 54.7 s High 20.0-30.5 [facility] Comment on above: Result Comment: BUBBA Garcia COMMENTS:NOTE: The therapeutic time for Heparin anticoagulation, based on Xa activity inhibition, is an APTT of 46-80 seconds. Performed By: #### L [id number] ####Patient Services Technician: VELMA VALADEZ ([phone])[address] aPTT Coag (Bld) [Time] 77.7 s High 20.0-30.5 [facility] Comment on above: Result Comment: BUBBA Garcia COMMENTS:NOTE: The therapeutic time for Heparin anticoagulation, based on Xa activity inhibition, is an APTT of 46-80 seconds. Performed By: #### L AB325, [id number] ####Patient Services Technician: VELMA VALADEZ ([phone])[facility])[address] [place] [address] BASIC METABOLIC PANELon 09-2 Anion gap [Moles/Vol] 4 mmol/L Normal 3-13 [facility] Comment on above: Performed By: #### L AB15 ####Patient Services Technician: VELMA VALADEZ ([phone])[facility] ([facility])[address] [place] [address] Calcium [Mass/Vol] 8.8 mg/dL Normal 8.4-10.4 [facility] Comment on above: Performed By: #### L AB15 ####Patient Services Technician: VELMA VALADEZ ([phone])[facility] ([facility])[address] [place] [address] Chloride [Moles/Vol] 115 mmol/L High 98-107 [facility] Comment on above: Performed By: #### L AB15 ####Patient Services Technician: VELMA VALADEZ ([phone])[facility] ([facility])[address] [place] [address] CO2 [Moles/Vol] 17 mmol/L Low 22-30 [facility] Comment on above: Performed By: #### L AB15 ####Patient Services Technician: VELMA VALADEZ ([phone])[facility] ([facility])[address] [place] [address] Creatinine [Mass/Vol] 0.90 mg/dL Normal 0.52-1.04 [facility] Comment on above: Performed By: #### L AB15 ####Patient Services Technician: VELMA VALADEZ ([phone])[facility])[address] [place] [address] GLOMERULAR FILTRATION RATE ML/MIN/1.73 SQ M.PREDICTED 63.2 mL/min/1.73m*2 Normal >60.0 [facility] Comment on above: Result Comment: Calc ulation based on the Chronic Kidney Disease Epidemiology Collaboration (CKD-EPI) equation refit without adjustment for race Performed By: #### L AB15 ####Patient Services Technician: VELMA VALADEZ ([phone])[facility])[address] [place] [address] Glucose [Mass/Vol] 139 mg/dL High 70-100 [facility] Comment on above: Performed By: #### L AB15 ####Patient Services Technician: VELMA VALADEZ ([phone])[facility])[address] [place] [address] Potassium [Moles/Vol] 4.7 mmol/L Normal 3.5-5.1 [facility] Comment on above: Performed By: #### L AB15 ####Patient Services Technician: VELMA VALADEZ ([phone])[facility] ([facility])[address] [place] [address] Sodium [Moles/Vol] 136 mmol/L Normal 135-145 [facility] Comment on above: Performed By: #### L AB15 ####Patient Services Technician: VELMA VALADEZ ([phone])[facility] ([facility])[address] [place] [address] Urea nitrogen [Mass/Vol] 16 mg/dL Normal 7-17 [facility] Comment on above: Performed By: #### L AB15 ####Patient Services Technician: VELMA VALADEZ ([phone])[facility])[address] [place] [address] Basic metabolic 1998 panelon 04-07-2024 Anion gap [Moles/Vol] 4 mmol/L 3 - 13 mmol/L [facility] Calcium [Mass/Vol] 8.8 mg/dL 8.4 - 10. 4 mg/dL [facility] Chloride [Moles/Vol] 115 mmol/L High 98 - 10 7 mmol/L [facility] CO2 [Moles/Vol] 17 mmol/L Low 22 - 30 mmol/L [facility] Creatinine [Mass/Vol] 0.90 mg/dL 0.52 - 1.04 mg/dL [facility] GFR/1.73 sq M.predicted (S/P/Bld) [Vol rate/Area] 63.2 mL/min - PINF [facility] Comment on above: Calculation based on the Chronic Kidney Disease Epidemiology Collaboration (CKD-EPI) equation refit without adjustment for race Glucose [Mass/Vol] 139 mg/dL High 70 - 100 mg/dL [facility] Interpretation and review of laboratory results Abnormal [facility] Potassium [Moles/Vol] 4.7 mmol/L 3.5 - 5.1 mmol/L [facility] Sodium [Moles/Vol] 136 mmol/L 135 - 145 mmol/L [facility] Urea nitrogen [Mass/Vol] 16 mg/dL 7 - 17 mg/dL [facility] CBC W Auto Differential pane l (Bld)on 04-07-2024 Basophils (Bld) [#/Vol] 0.0 10*3/uL 0.0 - 0.2 10*3/uL [facility] Basophils/100 WBC (Bld) 0.2 % 0.0 - 2.0 % [facility] Eosinophils (Bld) [#/Vol] 0.0 10*3/uL 0.0 - 0.5 10*3/uL [facility] Eosinophils/100 WBC (Bld) 0.0 % 0.0 - 6.0 % [facility] Erythrocyte distribution width (RBC) [Ratio] 14.3 % 11.5 - 15.0 % [facility] Hematocrit (Bld) [Volume fraction] 27.0 % Low 35.0 - 47.0 % [facility] Hemoglobin (Bld) [Mass/Vol] 8.6 g/dL Low 11.7 - 16.0 g/dL [facility] Immature granulocytes (Bld) [#/Vol] 0.0 10*3/uL NINF - 0.1 10*3/uL [facility] Immature granulocytes/100 WBC (Bld) 0.5 % 0.0 - 2.0 % [facility] Interpretation and review of laboratory results Abnormal [facility] Lymphocytes (Bld) [#/Vol] 0.8 10*3/uL Low 1.0 - 4.3 10*3/uL [facility] Lymphocytes/100 WBC (Bld) 19.2 % 15.0 - 45.0 % [facility] MCH (RBC) [Entitic mass] 30.1 pg 26.0 - 34.0 pg [facility] MCHC (RBC) [Mass/Vol] 31.9 % 30.5 - 36.0 % [facility] MCV (RBC) [Entitic vol] 94.4 fL 77.0 - 99.0 fL [facility] Monocytes (Bld) [#/Vol] 0.3 10*3/uL 0.0 - 0.9 10*3/uL [facility] Monocytes/100 WBC (Bld) 7.5 % 5.0 - 13.0 % [facility] Neutrophils (Bld) [#/Vol] 2.9 10*3/uL 1.8 - 7.5 10*3/uL [facility] Neutrophils/100 WBC (Bld) 72.6 % 38.0 - 82.0 % [facility] Nucleated RBC/100 WBC (Bld) [Ratio] 0.0 % [facility] Platelet mean volume (Bld) [Entitic vol] 10.5 fL 9.0 - 12.7 fL [facility] Platelets (Bld) [#/Vol] 202 10*3/uL 140 - 440 10*3/uL [facility] RBC (Bld) [#/Vol] 2.86 10*6/uL Low 3.80 - 5.2 0 10*6/uL [facility] WBC (Bld) [#/Vol] 4.0 10*3/uL 3.6 - 10.7 10*3/uL [facility] CBC WITH AUTO DIFFERENTIALon 04-07-2024 Basophils (Bld) [#/Vol] 0.0 10*3/uL Normal 0.0-0.2 [facility] Comment on above: Performed By: #### L [id number] ####Patient Services Technician: VELMA VALADEZ ([phone])[facility])[address] [place] [address] Basophils/100 WBC (Bld) 0.2 % Normal 0.0-2.0 [facility] Comment on above: Performed By: #### L [id number] ####Patient Services Technician: VELMA VALADEZ ([phone])[facility])[address] [place] [address] Eosinophils (Bld) [#/Vol] 0.0 10*3/uL Normal 0.0-0.5 [facility] Comment on above: Performed By: #### L [id number] ####Patient Services Technician: VELMA VALADEZ ([phone])[facility])[address] [place] [address] Eosinophils/100 WBC (Bld) 0.0 % Normal 0.0-6.0 [facility] Comment on above: Performed By: #### L [id number] ####Patient Services Technician: VELMA VALADEZ ([phone])[facility])[address] [place] [address] Erythrocyte distribution width (RBC) [Ratio] 14.3 % Normal 11.5-15.0 [facility] Comment on above: Performed By: #### L [id number] ####Patient Services Technician: VELMA VALADEZ ([phone])[address] Hematocrit (Bld) [Volume fraction] 27.0 % Low 35.0-47.0 [facility] Comment on above: Performed By: #### L [id number] ####Patient Services Technician: VELMA VALADEZ ([phone])[address] Hemoglobin (Bld) [Mass/Vol] 8.6 g/dL Low 11.7-16.0 [facility] Comment on above: Performed By: #### L [id number] ####Patient Services Technician: VELMA VALADEZ ([phone])[facility])[address] [place] [address] IMMATURE GRANS % 0.5 % Normal 0.0-2.0 [facility] Comment on above: Performed By: #### L [id number] ####Patient Services Technician: VELMA VALADEZ ([phone])[address] IMMATURE GRANS ABSOLUTE 0.0 10*3/uL Normal <0.1 [facility] Comment on above: Performed By: #### L [id number] ####Patient Services Technician: VELMA [phone])[facility])[address] [place] [address] Lymphocytes (Bld) [#/Vol] 0.8 10*3/uL Low 1.0-4.3 [facility] Comment on above: Performed By: #### L [id number] ####Patient Services Technician: VELMA VALADEZ ([phone])[facility])[address] [place] [address] Lymphocytes/100 WBC (Bld) 19.2 % Normal 15.0-45.0 [facility] Comment on above: Performed By: #### L [id number] ####Patient Services Technician: VELMA VALADEZ ([phone])[facility])[address] [place] [address] MCH (RBC) [Entitic mass] 30.1 pg Normal 26.0-34.0 [facility] Comment on above: Performed By: #### L [id number] ####Patient Services Technician: VELMA VALADEZ ([phone])[facility])[address] [place] [address] MCHC 31.9 % Normal 30.5-36.0 [facility] Comment on above: Performed By: #### L [id number] ####Patient Services Technician: VELMA VALADEZ ([phone])[facility])[address] [place] [address] MCV (RBC) [Entitic vol] 94.4 fL Normal 77.0-99.0 [facility] Comment on above: Performed By: #### L [id number] ####Patient Services Technician: VELMA VALADEZ ([phone])[facility])[address] [place] [address] Monocytes (Bld) [#/Vol] 0.3 10*3/uL Normal 0.0-0.9 [facility] Comment on above: Performed By: #### L [id number] ####Patient Services Technician: VELMA VALADEZ ([phone])[facility])[address] [place] [address] Monocytes/100 WBC (Bld) 7.5 % Normal 5.0-13.0 [facility] Comment on above: Performed By: #### L [id number] ####Patient Services Technician: VELMA VALADEZ ([phone])[facility] ([facility])[address] [place] [address] NEUTROPHILS ABSOLUTE 2.9 10*3/uL Normal 1.8-7.5 [facility] Comment on above: Performed By: #### L [id number] ####Patient Services Technician: VELMA VALADEZ ([phone])[facility] ([facility])[address] [place] [address] Neutrophils/100 WBC (Bld) 72.6 % Normal 38.0-82.0 [facility] Comment on above: Performed By: #### L [id number] ####Patient Services Technician: VELMA VALADEZ ([phone])[facility] ([facility])[address] [place] [address] NRBC 0.0 /100 WBCs Normal 0.0-2.0 [facility] Comment on above: Performed By: #### L [id number] ####Patient Services Technician: VELMA VALADEZ ([phone])[facility] ([facility])[address] [place] [address] Platelet mean volume (Bld) [Entitic vol] 10.5 fL Normal 9.0-12.7 [facility] Comment on above: Performed By: #### L [id number] ####Patient Services Technician: VELMA VALADEZ ([phone])[facility] ([facility])[address] [place] [address] Platelets (Bld) [#/Vol] 202 10*3/uL Normal 140-440 [facility] Comment on above: Performed By: #### L [id number] ####Patient Services Technician: VELMA VALADEZ ([phone])[facility] ([facility])[address] [place] [address] RBC (Bld) [#/Vol] 2.86 10*6/uL Low 3.80-5.20 [facility] Comment on above: Performed By: #### L [id number] ####Patient Services Technician: VELMA VALADEZ ([phone])[address] WBC (Bld) [#/Vol] 4.0 10*3/uL Normal 3.6-10.7 [facility] Comment on above: Performed By: #### L [id number] ####Patient Services Technician: VELMA VALADEZ ([phone])[facility])[address] [place] [address] IDNon 04-07-2024 IDN Normal [facility] Laboratory - Coagulationon 0 04-07-2024 PT Coag (Bld) [Time] 11.1 s 9.0 - 1 2.0 s [facility] No Panel Informationon 04-07 [facility] Nursing Noteon 04-07-2024 Nursing Note NO changes to hepari n infusion at this time. Normal [facility] PROTHROMBIN TIMEon INR Coag (PPP) [Relative time] 1.0 {INR} Normal 0.9-1.1 [facility] Comment on above: Result Comment: Timothy [...] Myocardial Infarction Performed By: #### L [id number], [id number] ####Patient Services Technician: VELMA VALADEZ ([phone])[address] PT Coag (PPP) [Time] 11.1 s Normal 9.0-12.0 [facility] Comment on above: Performed By: #### L [id number], [id number] ####Patient Services Technician: VELMA VALADEZ ([phone])[facility])[address] [place] [address] PT Coag (Bld) [Time]on 04-07 INR Coag (PPP) [Relative time] 1.0 {INR} 0.9 - 1.1 [facility] Comment on above: Recommended Anticoag ulant Therapy: [...] Interpretation and review of laboratory results Normal [facility] Progress Noteon 04-07-2024 Progress Note Normal [facility] Progress Note Normal [facility] Progress Note Normal [facility] aPTT Coag (Bld) [Time]on aPTT Coag (PPP) [Time] 54.7 s High 20.0 - 30.5 s [facility] Interpretation and review of laboratory results Abnormal [facility] NOTE: The therapeuti c time for Heparin anticoagulation, based on Xa activity inhibition, is an APTT of 46-80 seconds. [facility] aPTT Coag (PPP) [Time] 77.7 s High 20.0 - 30.5 s [facility] Interpretation and review of laboratory results Abnormal [facility] NOTE: The therapeuti c time for Heparin anticoagulation, based on Xa activity inhibition, is an APTT of 46-80 seconds. [facility] [id number] 04-06-2024 [id number] Normal [facility] APTTon 04-06-2024 aPTT Coag (Bld) [Time] 43.3 s High 20.0-30.5 [facility] Comment on above: Result Comment: BUBBA Garcia COMMENTS:NOTE: The therapeutic time for Heparin anticoagulation, based on Xa activity inhibition, is an APTT of 46-80 seconds. Performed By: #### L [id number] ####Patient Services Technician: VELMA VALADEZ ([phone])[facility] ([facility])[address] [place] [address] aPTT Coag (Bld) [Time] 97.6 s High 20.0-30.5 [facility] Comment on above: Result Comment: BUBBA Garcia COMMENTS:NOTE: The therapeutic time for Heparin anticoagulation, based on Xa activity inhibition, is an APTT of 46-80 seconds. Performed By: #### L [id number] ####Patient Services Technician: VELMA VALADEZ ([phone])[facility] ([facility])[address] [place] [address] Anesthesia Noteon 04-06-2024 Anesthesia Note Normal [facility] Anesthesia Note Normal [facility] BASIC METABOLIC PANELon 03-19 Anion gap [Moles/Vol] 4 mmol/L Normal 3-13 [facility] Comment on above: Performed By: #### L [id number] ####Patient Services Technician: VELMA VALADEZ ([phone])[facility] ([facility])[address] [place] [address] Calcium [Mass/Vol] 8.9 mg/dL Normal 8.4-10.4 [facility] Comment on above: Performed By: #### L AB15 ####Patient Services Technician: VELMA VALADEZ ([phone])[facility])[address] [place] [address] Chloride [Moles/Vol] 114 mmol/L High 98-107 [facility] Comment on above: Performed By: #### L AB15 ####Patient Services Technician: VELMA VALADEZ ([phone])[facility])[address] [place] [address] CO2 [Moles/Vol] 18 mmol/L Low 22-30 [facility] Comment on above: Performed By: #### L AB15 ####Patient Services Technician: VELMA VALADEZ ([phone])[facility])[address] [place] [address] Creatinine [Mass/Vol] 0.96 mg/dL Normal 0.52-1.04 [facility] Comment on above: Performed By: #### L AB15 ####Patient Services Technician: VELMA VALADEZ ([phone])[facility] ([facility])[address] [place] [address] GLOMERULAR FILTRATION RATE ML/MIN/1.73 SQ M.PREDICTED 58.5 mL/min/1.73m*2 Low >60.0 [facility] Comment on above: Result Comment: Calc ulation based on the Chronic Kidney Disease Epidemiology Collaboration (CKD-EPI) equation refit without adjustment for race Performed By: #### L AB15 ####Patient Services Technician: VELMA VALADEZ ([phone])[facility] ([facility])[address] [place] [address] Glucose [Mass/Vol] 97 mg/dL Normal 70-100 [facility] Comment on above: Performed By: #### L AB15 ####Patient Services Technician: VELMA VALADEZ ([phone])[facility])[address] [place] [address] Potassium [Moles/Vol] 4.6 mmol/L Normal 3.5-5.1 [facility] Comment on above: Performed By: #### L AB15 ####Patient Services Technician: VELMA VALADEZ ([phone])[facility] ([facility])[address] [place] [address] Sodium [Moles/Vol] 135 mmol/L Normal 135-145 [facility] Comment on above: Performed By: #### L AB15 ####Patient Services Technician: VELMA VALADEZ ([phone])[facility])[address] [place] [address] Urea nitrogen [Mass/Vol] 17 mg/dL Normal 7-17 [facility] Comment on above: Performed By: #### L AB15 ####Patient Services Technician: VELMA VALADEZ ([phone])[facility])[address] [place] [address] BLOOD TYPE AND SCREEN GELon 04-06-2024 ABO GROUPING AB Normal [facility] Comment on above: Performed By: #### L [id number] ####Patient Services Technician: VELMA VALADEZ ([phone])[facility] BLOOD [facility] ([facility])[address] [place] [address] RH TYPE IN BLOOD Positive Normal [facility] Comment on above: Performed By: #### L [id number] ####Patient Services Technician: VELMA VALADEZ ([phone])[facility] B[facility]OD [facility] ([facility])[address] [place] [address] Basic metabolic 1998 panelon 04-06-2024 Anion gap [Moles/Vol] 4 mmol/L 3 - 13 mmol/L [facility] Calcium [Mass/Vol] 8.9 mg/dL 8.4 - 10. 4 mg/dL [facility] Chloride [Moles/Vol] 114 mmol/L High 98 - 10 7 mmol/L [facility] CO2 [Moles/Vol] 18 mmol/L Low 22 - 30 mmol/L [facility] Creatinine [Mass/Vol] 0.96 mg/dL 0.52 - 1.04 mg/dL [facility] GFR/1.73 sq M.predicted (S/P/Bld) [Vol rate/Area] 58.5 mL/min Low - PINF [facility] Comment on above: Calculation based on the Chronic Kidney Disease Epidemiology Collaboration (CKD-EPI) equation refit without adjustment for race Glucose [Mass/Vol] 97 mg/dL 70 - 100 mg/dL [facility] Interpretation and review of laboratory results Abnormal [facility] Potassium [Moles/Vol] 4.6 mmol/L 3.5 - 5.1 mmol/L [facility] Sodium [Moles/Vol] 135 mmol/L 135 - 145 mmol/L [facility] Urea nitrogen [Mass/Vol] 17 mg/dL 7 - 17 mg/dL [facility] Blood type and Crossmatch pa juan (Bld)on 04-06-2024 ABO group Nom (Bld) AB [facility] Blood group antibody screen GEL Ql Negative [facility] D [facility]) [facility] CARECOORDon 04-06-2024 CARECOORD Normal [facility] CARECOORD Normal [facility] CBC W Auto Differential pane l (Bld)on 04-06-2024 Basophils (Bld) [#/Vol] 0.1 10*3/uL 0.0 - 0.2 10*3/uL [facility] Basophils/100 WBC (Bld) 1.1 % 0.0 - 2.0 % [facility] Eosinophils (Bld) [#/Vol] 0.1 10*3/uL 0.0 - 0.5 10*3/uL [facility] Eosinophils/100 WBC (Bld) 2.7 % 0.0 - 6.0 % [facility] Erythrocyte distribution width (RBC) [Ratio] 14.3 % 11.5 - 15.0 % [facility] Hematocrit (Bld) [Volume fraction] 29.8 % Low 35.0 - 47.0 % [facility] Hemoglobin (Bld) [Mass/Vol] 9.7 g/dL Low 11.7 - 16.0 g/dL [facility] Immature granulocytes (Bld) [#/Vol] 0.0 10*3/uL NINF - 0.1 10*3/uL [facility] Immature granulocytes/100 WBC (Bld) 0.2 % 0.0 - 2.0 % [facility] Interpretation and review of laboratory results Abnormal [facility] Lymphocytes (Bld) [#/Vol] 1.5 10*3/uL 1.0 - 4.3 10*3/uL [facility] Lymphocytes/100 WBC (Bld) 33.0 % 15.0 - 45.0 % [facility] MCH (RBC) [Entitic mass] 30.3 pg 26.0 - 34.0 pg [facility] MCHC (RBC) [Mass/Vol] 32.6 % 30.5 - 36.0 % [facility] MCV (RBC) [Entitic vol] 93.1 fL 77.0 - 99.0 fL [facility] Monocytes (Bld) [#/Vol] 0.5 10*3/uL 0.0 - 0.9 10*3/uL [facility] Monocytes/100 WBC (Bld) 10.5 % 5.0 - 13.0 % [facility] Neutrophils (Bld) [#/Vol] 2.4 10*3/uL 1.8 - 7.5 10*3/uL [place] [facility] Neutrophils/100 WBC (Bld) 52.5 % 38.0 - 82.0 % [facility] Nucleated RBC/100 WBC (Bld) [Ratio] 0.0 % [facility] Platelet mean volume (Bld) [Entitic vol] 10.4 fL 9.0 - 12.7 fL [facility] Platelets (Bld) [#/Vol] 207 10*3/uL 140 - 440 10*3/uL [facility] RBC (Bld) [#/Vol] 3.20 10*6/uL Low 3.80 - 5.2 0 10*6/uL [facility] WBC (Bld) [#/Vol] 4.5 10*3/uL 3.6 - 10.7 10*3/uL [facility] CBC WITH AUTO DIFFERENTIALon 04-06-2024 Basophils (Bld) [#/Vol] 0.1 10*3/uL Normal 0.0-0.2 [facility] Comment on above: Performed By: #### L [id number] ####Patient Services Technician: VELMA VALADEZ ([phone])[facility] ([facility])[address] [place] [address] Basophils/100 WBC (Bld) 1.1 % Normal 0.0-2.0 S [facility] Comment on above: Performed By: #### L [id number] ####Patient Services Technician: VELMA VALADEZ ([phone])[facility] ([facility])[address] [place] [address] [place] Eosinophils (Bld) [#/Vol] 0.1 10*3/uL Normal 0.0-0.5 [facility] Comment on above: Performed By: #### L [id number] ####Patient Services Technician: VELMA VALADEZ ([phone])[facility] ([facility])[address] [place] [address] [place] Eosinophils/100 WBC (Bld) 2.7 % Normal 0.0-6.0 [facility] Comment on above: Performed By: #### L [id number] ####Patient Services Technician: VELMA VALADEZ ([phone])[facility])[address] [place] [address] Erythrocyte distribution width (RBC) [Ratio] 14.3 % Normal 11.5-15.0 [facility] Comment on above: Performed By: #### L [id number] ####Patient Services Technician: VELMA [phone])[facility])[address] [place] [address] Hematocrit (Bld) [Volume fraction] 29.8 % Low 35.0-47.0 [facility] Comment on above: Performed By: #### L [id number] ####Patient Services Technician: VELMA VALADEZ ([phone])[facility])[address] [place] [address] Hemoglobin (Bld) [Mass/Vol] 9.7 g/dL Low 11.7-16.0 [facility] Comment on above: Performed By: #### L [id number] ####Patient Services Technician: VELMA VALADEZ ([phone])[facility])[address] [place] [address] IMMATURE GRANS % 0.2 % Normal 0.0-2.0 [facility] Comment on above: Performed By: #### L [id number] ####Patient Services Technician: VELMA VALADEZ ([phone])[facility])[address] [place] [address] IMMATURE GRANS ABSOLUTE 0.0 10*3/uL Normal <0.1 [facility] Comment on above: Performed By: #### L [id number] ####Patient Services Technician: VELMA VALADEZ ([phone])[facility])[address] [place] [address] Lymphocytes (Bld) [#/Vol] 1.5 10*3/uL Normal 1.0-4.3 [facility] Comment on above: Performed By: #### L [id number] ####Patient Services Technician: VELMA VALADEZ ([phone])[facility])[address] [place] [address] Lymphocytes/100 WBC (Bld) 33.0 % Normal 15.0-45.0 [facility] Comment on above: Performed By: #### L [id number] ####Patient Services Technician: VELMA VALADEZ ([phone])[facility])[address] [place] [address] MCH (RBC) [Entitic mass] 30.3 pg Normal 26.0-34.0 [facility] Comment on above: Performed By: #### L [id number] ####Patient Services Technician: VELMA VALADEZ ([phone])[facility])[address] [place] [address] MCHC 32.6 % Normal 30.5-36.0 [facility] Comment on above: Performed By: #### L [id number] ####Patient Services Technician: VELMA VALADEZ ([phone])[facility])[address] [place] [address] MCV (RBC) [Entitic vol] 93.1 fL Normal 77.0-99.0 [facility] Comment on above: Performed By: #### L [id number] ####Patient Services Technician: VELMA VALADEZ ([phone])[facility])[address] [place] [address] Monocytes (Bld) [#/Vol] 0.5 10*3/uL Normal 0.0-0.9 [facility] Comment on above: Performed By: #### L [id number] ####Patient Services Technician: VELMA VALADEZ ([phone])[facility])[address] [place] [address] Monocytes/100 WBC (Bld) 10.5 % Normal 5.0-13.0 [facility] Comment on above: Performed By: #### L [id number] ####Patient Services Technician: VELMA VALADEZ ([phone])[facility])[address] [place] [address] NEUTROPHILS ABSOLUTE 2.4 10*3/uL Normal 1.8-7.5 [facility] Comment on above: Performed By: #### L [id number] ####Patient Services Technician: VELMA VALADEZ ([phone])[facility])[address] [place] [address] Neutrophils/100 WBC (Bld) 52.5 % Normal 38.0-82.0 [facility] Comment on above: Performed By: #### L [id number] ####Patient Services Technician: VELMA VALADEZ ([phone])[facility] ([facility])[address] [place] [address] NRBC 0.0 /100 WBCs Normal 0.0-2.0 [facility] Comment on above: Performed By: #### L [id number] ####Patient Services Technician: VELMA VALADEZ ([phone])[facility])[address] [place] [address] Platelet mean volume (Bld) [Entitic vol] 10.4 fL Normal 9.0-12.7 [facility] Comment on above: Performed By: #### L [id number] ####Patient Services Technician: VELMA VALADEZ ([phone])[facility] ([facility])[address] [place] [address] Platelets (Bld) [#/Vol] 207 10*3/uL Normal 140-440 [facility] Comment on above: Performed By: #### L [id number] ####Patient Services Technician: VELMA VALADEZ ([phone])[facility] ([facility])[address] [place] [address] RBC (Bld) [#/Vol] 3.20 10*6/uL Low 3.80-5.20 [facility] Comment on above: Performed By: #### L [id number] ####Patient Services Technician: VELMA VALADEZ ([phone])[facility] ([facility])[address] [place] [address] WBC (Bld) [#/Vol] 4.5 10*3/uL Normal 3.6-10.7 [facility] Comment on above: Performed By: #### L [id number] ####Patient Services Technician: VELMA VALADEZ ([phone])[facility])[address] [place] [address] No Panel Informationon 04-06 There is no interpretation needed for this exam. IMAGING Nursing Noteon 04-06-2024 Nursing Note Patient report rader d to 4N RN and denies any further questions. Patient resting comfortably and no signs of distress. Per resident patient to lay flat for 2 hours and restart heparin GTT at 1215. Transport notified. Normal [facility] Op Noteon 04-06-2024 Op Note Normal [facility] Progress Noteon 04-06-2024 Progress Note Normal [facility] Progress Note Normal [facility] Progress Note Normal [facility] aPTT Coag (Bld) [Time]on aPTT Coag (PPP) [Time] 43.3 s High 20.0 - 30.5 s [facility] Interpretation and review of laboratory results Abnormal [facility] NOTE: The therapeuti c time for Heparin anticoagulation, based on Xa activity inhibition, is an APTT of 46-80 seconds. [facility] aPTT Coag (PPP) [Time] 97.6 s High 20.0 - 30.5 s [facility] Interpretation and review of laboratory results Abnormal [facility] NOTE: The therapeuti c time for Heparin anticoagulation, based on Xa activity inhibition, is an APTT of 46-80 seconds. [facility] 36on 04-05-2024 36 Surgery: Inpatient R LE venous mechanical thrombectomy Date of surgery: 04/06/24 Pre-testing: inpatient CPT codes: 25667 ICD 10: I82.401 Post-op or OV: Adriane to schedule Reps: Selvin Elaine) notified 04/05/24 Normal [facility] APTTon 04-05-2024 aPTT Coag (Bld) [Time] 76.6 s High 20.0-30.5 [facility] Comment on above: Result Comment: BUBBA Garcia COMMENTS:NOTE: The therapeutic time for Heparin anticoagulation, based on Xa activity inhibition, is an APTT of 46-80 seconds. Performed By: #### L [id number], [id number] ####Patient Services Technician: VELMA VALADEZ ([phone])[facility] ([id number] aPTT Coag (Bld) [Time] 69.9 s High 20.0-30.5 [facility] Comment on above: Result Comment: BUBBA Garcia COMMENTS:NOTE: The therapeutic time for Heparin anticoagulation, based on Xa activity inhibition, is an APTT of 46-80 seconds. Performed By: #### L [id number] ####Patient Services Technician: VELMA VALADEZ ([phone])[facility])[address] [place] [address] aPTT Coag (Bld) [Time] 88.8 s High 20.0-30.5 [facility] Comment on above: Result Comment: BUBBA Garcia COMMENTS:NOTE: The therapeutic time for Heparin anticoagulation, based on Xa activity inhibition, is an APTT of 46-80 seconds. Performed By: #### L [id number], [id number] ####Patient Services Technician: VELMA VALADEZ ([phone])[facility])[address] [place] [address] aPTT Coag (Bld) [Time] 109.7 s High 20.0-30.5 [facility] Comment on above: Result Comment: BUBBA Garcia COMMENTS:NOTE: The therapeutic time for Heparin anticoagulation, based on Xa activity inhibition, is an APTT of 46-80 seconds. Performed By: #### L [id number] ####Patient Services Technician: VELMA VALADEZ ([phone])[facility])[address] [place] [address] BASIC METABOLIC PANELon 09- Anion gap [Moles/Vol] 3 mmol/L Normal 3-13 [facility] Comment on above: Performed By: #### L AB15 ####Patient Services Technician: VELMA VALADEZ ([phone])[facility])[address] [place] [address] Calcium [Mass/Vol] 8.7 mg/dL Normal 8.4-10.4 [facility] Comment on above: Performed By: #### L AB15 ####Patient Services Technician: VELMA [phone])[facility])[address] [place] [address] Chloride [Moles/Vol] 113 mmol/L High 98-107 [facility] Comment on above: Performed By: #### L AB15 ####Patient Services Technician: VELMA [phone])[facility] ([facility])[address] [place] [address] CO2 [Moles/Vol] 17 mmol/L Low 22-30 [facility] Comment on above: Performed By: #### L AB15 ####Patient Services Technician: VELMA VALADEZ ([phone])[facility] ([facility])[address] [place] [address] Creatinine [Mass/Vol] 1.12 mg/dL High 0.52-1.04 [facility] Comment on above: Performed By: #### L AB15 ####Patient Services Technician: VELMA VALADEZ ([phone])[facility] ([facility])[address] [place] [address] GLOMERULAR FILTRATION RATE ML/MIN/1.73 SQ M.PREDICTED 48.6 mL/min/1.73m*2 Low >60.0 [facility] Comment on above: Result Comment: Calc ulation based on the Chronic Kidney Disease Epidemiology Collaboration (CKD-EPI) equation refit without adjustment for race Performed By: #### L AB15 ####Patient Services Technician: VELMA VALADEZ ([phone])[facility] ([facility])[address] [place] [address] Glucose [Mass/Vol] 102 mg/dL High 70-100 [facility] Comment on above: Performed By: #### L AB15 ####Patient Services Technician: VELMA VALADEZ ([phone])[facility] ([facility])[address] [place] [address] Potassium [Moles/Vol] 4.8 mmol/L Normal 3.5-5.1 [facility] Comment on above: Performed By: #### L AB15 ####Patient Services Technician: VELMA VALADEZ ([phone])[facility])[address] [place] [address] Sodium [Moles/Vol] 133 mmol/L Low 135-145 [facility] Comment on above: Performed By: #### L AB15 ####Patient Services Technician: VELMA VALADEZ ([phone])[facility])[address] [place] [address] Urea nitrogen [Mass/Vol] 25 mg/dL High 7-17 [facility] Comment on above: Performed By: #### L AB15 ####Patient Services Technician: VELMA VALADEZ ([phone])[facility] ([facility])[address] [place] [address] Basic metabolic 1998 panelon 04-05-2024 Anion gap [Moles/Vol] 3 mmol/L 3 - 13 mmol/L [facility] Calcium [Mass/Vol] 8.7 mg/dL 8.4 - 10. 4 mg/dL [facility] Chloride [Moles/Vol] 113 mmol/L High 98 - 10 7 mmol/L [facility] CO2 [Moles/Vol] 17 mmol/L Low 22 - 30 mmol/L [facility] Creatinine [Mass/Vol] 1.12 mg/dL High 0.52 - 1.04 mg/dL [facility] GFR/1.73 sq M.predicted (S/P/Bld) [Vol rate/Area] 48.6 mL/min Low - PINF [facility] Comment on above: Calculation based on the Chronic Kidney Disease Epidemiology Collaboration (CKD-EPI) equation refit without adjustment for race Glucose [Mass/Vol] 102 mg/dL High 70 - 100 mg/dL [facility] Interpretation and review of laboratory results Abnormal [facility] Potassium [Moles/Vol] 4.8 mmol/L 3.5 - 5.1 mmol/L [facility] Sodium [Moles/Vol] 133 mmol/L Low 135 - 145 mmol/L [facility] Urea nitrogen [Mass/Vol] 25 mg/dL High 7 - 17 mg/dL [facility] CARECOORDon 04-05-2024 CARECOORD Normal [facility] CBC W Auto Differential pane l (Bld)on 04-05-2024 Basophils (Bld) [#/Vol] 0.1 10*3/uL 0.0 - 0.2 10*3/uL [facility] Basophils/100 WBC (Bld) 1.0 % 0.0 - 2.0 % [facility] Eosinophils (Bld) [#/Vol] 0.2 10*3/uL 0.0 - 0.5 10*3/uL [facility] Eosinophils/100 WBC (Bld) 2.9 % 0.0 - 6.0 % [facility] Erythrocyte distribution width (RBC) [Ratio] 14.4 % 11.5 - 15.0 % [facility] Hematocrit (Bld) [Volume fraction] 32.3 % Low 35.0 - 47.0 % [facility] Hemoglobin (Bld) [Mass/Vol] 10.6 g/dL Low 11.7 - 16.0 g/dL [facility] Immature granulocytes (Bld) [#/Vol] 0.0 10*3/uL NINF - 0.1 10*3/uL [facility] Immature granulocytes/100 WBC (Bld) 0.3 % 0.0 - 2.0 % [facility] Interpretation and review of laboratory results Abnormal [facility] Lymphocytes (Bld) [#/Vol] 1.7 10*3/uL 1.0 - 4.3 10*3/uL [facility] Lymphocytes/100 WBC (Bld) 27.5 % 15.0 - 45.0 % [facility] MCH (RBC) [Entitic mass] 30.7 pg 26.0 - 34.0 pg [facility] MCHC (RBC) [Mass/Vol] 32.8 % 30.5 - 36.0 % [facility] MCV (RBC) [Entitic vol] 93.6 fL 77.0 - 99.0 fL [facility] Monocytes (Bld) [#/Vol] 0.6 10*3/uL 0.0 - 0.9 10*3/uL [facility] Monocytes/100 WBC (Bld) 9.0 % 5.0 - 13.0 % [facility] Neutrophils (Bld) [#/Vol] 3.6 10*3/uL 1.8 - 7.5 10*3/uL [facility] Neutrophils/100 WBC (Bld) 59.3 % 38.0 - 82.0 % [facility] Nucleated RBC/100 WBC (Bld) [Ratio] 0.0 % [facility] Platelet mean volume (Bld) [Entitic vol] 10.1 fL 9.0 - 12.7 fL [facility] Platelets (Bld) [#/Vol] 204 10*3/uL 140 - 440 10*3/uL [facility] RBC (Bld) [#/Vol] 3.45 10*6/uL Low 3.80 - 5.2 0 10*6/uL [facility] WBC (Bld) [#/Vol] 6.1 10*3/uL 3.6 - 10.7 10*3/uL [facility] CBC WITH AUTO DIFFERENTIALon 04-05-2024 Basophils (Bld) [#/Vol] 0.1 10*3/uL Normal 0.0-0.2 [facility] Comment on above: Performed By: #### L [id number] ####Patient Services Technician: VELMA VALADEZ ([phone])[facility] ([facility])[address] [place] [address] Basophils/100 WBC (Bld) 1.0 % Normal 0.0-2.0 [facility] Comment on above: Performed By: #### L [id number] ####Patient Services Technician: VELMA VALADEZ ([phone])[facility])[address] [place] [address] Eosinophils (Bld) [#/Vol] 0.2 10*3/uL Normal 0.0-0.5 [facility] Comment on above: Performed By: #### L [id number] ####Patient Services Technician: VELMA VALADEZ ([phone])[facility])[address] [place] [address] Eosinophils/100 WBC (Bld) 2.9 % Normal 0.0-6.0 [facility] Comment on above: Performed By: #### L [id number] ####Patient Services Technician: VELMA VALADEZ ([phone])[facility])[address] [place] [address] Erythrocyte distribution width (RBC) [Ratio] 14.4 % Normal 11.5-15.0 [facility] Comment on above: Performed By: #### L [id number] ####Patient Services Technician: VELMA VALADEZ ([phone])[facility])[address] [place] [address] Hematocrit (Bld) [Volume fraction] 32.3 % Low 35.0-47.0 [facility] Comment on above: Performed By: #### L [id number] ####Patient Services Technician: VELMA VALADEZ ([phone])[facility])[address] [place] [address] Hemoglobin (Bld) [Mass/Vol] 10.6 g/dL Low 11.7-16.0 [facility] Comment on above: Performed By: #### L [id number] ####Patient Services Technician: VELMA VALADEZ ([phone])[facility])[address] [place] [address] IMMATURE GRANS % 0.3 % Normal 0.0-2.0 [facility] Comment on above: Performed By: #### L [id number] ####Patient Services Technician: VELMA VALADEZ ([phone])[facility])[address] [place] [address] IMMATURE GRANS ABSOLUTE 0.0 10*3/uL Normal <0.1 [facility] Comment on above: Performed By: #### L [id number] ####Patient Services Technician: VELMA VALADEZ ([phone])[facility] ([facility])[address] [place] [address] Lymphocytes (Bld) [#/Vol] 1.7 10*3/uL Normal 1.0-4.3 [facility] Comment on above: Performed By: #### L [id number] ####Patient Services Technician: VELMA VALADEZ ([phone])[facility])[address] [place] [address] Lymphocytes/100 WBC (Bld) 27.5 % Normal 15.0-45.0 [facility] Comment on above: Performed By: #### L [id number] ####Patient Services Technician: VELMA VALADEZ ([phone])[facility])[address] [place] [address] MCH (RBC) [Entitic mass] 30.7 pg Normal 26.0-34.0 [facility] Comment on above: Performed By: #### L [id number] ####Patient Services Technician: VELMA [phone])[facility] ([facility])[address] [place] [address] MCHC 32.8 % Normal 30.5-36.0 [facility] Comment on above: Performed By: #### L [id number] ####Patient Services Technician: VELMA VALADEZ ([phone])[facility] ([facility])[address] [place] [address] MCV (RBC) [Entitic vol] 93.6 fL Normal 77.0-99.0 [facility] Comment on above: Performed By: #### L [id number] ####Patient Services Technician: VELMA VALADEZ ([phone])[facility] ([facility])[address] [place] [address] Monocytes (Bld) [#/Vol] 0.6 10*3/uL Normal 0.0-0.9 [facility] Comment on above: Performed By: #### L [id number] ####Patient Services Technician: VELMA VALADEZ ([phone])[facility] ([facility])[address] [place] [address] Monocytes/100 WBC (Bld) 9.0 % Normal 5.0-13.0 [facility] Comment on above: Performed By: #### L [id number] ####Patient Services Technician: VELMA VALADEZ ([phone])[facility] ([facility])[address] [place] [address] NEUTROPHILS ABSOLUTE 3.6 10*3/uL Normal 1.8-7.5 [facility] Comment on above: Performed By: #### L [id number] ####Patient Services Technician: VELMA VALADEZ ([phone])[facility] ([facility])[address] [place] [address] Neutrophils/100 WBC (Bld) 59.3 % Normal 38.0-82.0 [facility] Comment on above: Performed By: #### L [id number] ####Patient Services Technician: VELMA VALADEZ ([phone])[facility] ([facility])[address] [place] [address] NRBC 0.0 /100 WBCs Normal 0.0-2.0 [facility] Comment on above: Performed By: #### L [id number] ####Patient Services Technician: VELMA VALADEZ ([phone])[facility])[address] [place] [address] Platelet mean volume (Bld) [Entitic vol] 10.1 fL Normal 9.0-12.7 [facility] Comment on above: Performed By: #### L [id number] ####Patient Services Technician: VELMA VALADEZ ([phone])[facility] ([facility])[address] [place] [address] Platelets (Bld) [#/Vol] 204 10*3/uL Normal 140-440 [facility] Comment on above: Performed By: #### L [id number] ####Patient Services Technician: VELMA VALADEZ ([phone])[facility] ([facility])[address] [place] [address] RBC (Bld) [#/Vol] 3.45 10*6/uL Low 3.80-5.20 [facility] Comment on above: Performed By: #### L [id number] ####Patient Services Technician: VELMA VALADEZ ([phone])[facility] ([facility])[address] [place] [address] WBC (Bld) [#/Vol] 6.1 10*3/uL Normal 3.6-10.7 [facility] Comment on above: Performed By: #### L [id number] ####Patient Services Technician: VELMA VALADEZ ([phone])[facility] ([facility])[address] [place] [address] IDNon 04-05-2024 IDN The patient is Moderately Stable - Low risk of patient condition declining or worsening The patient's goals for the shift include met The clinical goals for the shift include met Normal [facility] - Coagulationon 0 04-05-2024 PT Coag (Bld) [Time] 11.4 s 9.0 - 1 2.0 s [facility] PT Coag (Bld) [Time] 11.9 s 9.0 - 1 2.0 s [facility] No Panel Informationon 04-05 [facility] PROTHROMBIN TIMEon INR Coag (PPP) [Relative time] 1.0 {INR} Normal 0.9-1.1 [facility] Comment on above: Performed By: #### [place] AB325, [id number] ####Patient Services Technician: VELMA VALADEZ ([phone])[facility])[address] [place] [address] PT Coag (PPP) [Time] 11.4 s Normal 9.0-12.0 [facility] Comment on above: Performed By: #### [place] [id number], [id number] ####Patient Services Technician: VELMA VALADEZ ([phone])[address] INR Coag (PPP) [Relative time] 1.1 {INR} Normal 0.9-1.1 [facility] Comment on above: Result Comment: Timothy [...] Myocardial Infarction Performed By: #### Weston [id number], [id number] ####Patient Services Technician: VELMA VALADEZ ([phone])[facility])[address] [place] [address] PT Coag (PPP) [Time] 11.9 s Normal 9.0-12.0 [facility] Comment on above: Performed By: #### Weston [id number], [id number] ####Patient Services Technician: VELMA VALADEZ ([phone])[facility])[address] [place] [address] [place] PT Coag (Bld) [Time]on 04-05 INR Coag (PPP) [Relative time] 1.0 {INR} 0.9 - 1.1 [facility] Interpretation and review of laboratory results Normal [facility] INR Coag (PPP) [Relative time] 1.1 {INR} 0.9 - 1.1 [facility] Comment on above: Recommended Anticoag ulant Therapy: [...] Interpretation and review of laboratory results Normal [facility] Progress Noteon 04-05-2024 Progress Note Normal [facility] Progress Note Nutrition rescreen completed. Chart reviewed. Patient to be monitored and followed by the diet optics test technician. FADI Harmon Normal [facility] Progress Note Normal [facility] Progress Note Normal [facility] aPTT Coag (Bld) [Time]on aPTT Coag (PPP) [Time] 76.6 s High 20.0 - 30.5 s [facility] Interpretation and review of laboratory results Abnormal [facility] NOTE: The therapeuti c time for Heparin anticoagulation, based on Xa activity inhibition, is an APTT of 46-80 seconds. [facility] aPTT Coag (PPP) [Time] 69.9 s High 20.0 - 30.5 s [facility] Interpretation and review of laboratory results Abnormal [facility] NOTE: The therapeuti c time for Heparin anticoagulation, based on Xa activity inhibition, is an APTT of 46-80 seconds. [facility] aPTT Coag (PPP) [Time] 88.8 s High 20.0 - 30.5 s [facility] Interpretation and review of laboratory results Abnormal [facility] NOTE: The therapeuti c time for Heparin anticoagulation, based on Xa activity inhibition, is an APTT of 46-80 seconds. [facility] aPTT Coag (Bld) [Time]Ordere d By: Juni Millard on 04-05-2024 aPTT Coag (PPP) [Time] 109.7 s High 20.0 - 30.5 s [facility] Interpretation and review of laboratory results Abnormal [facility] NOTE: The therapeuti c time for Heparin anticoagulation, based on Xa activity inhibition, is an APTT of 46-80 seconds. [facility] [id number] 04-04-2024 [id number] Normal [facility] [id number] Normal [facility] APTTon 04-04-2024 aPTT Coag (Bld) [Time] 81.8 s High 20.0-30.5 [facility] Comment on above: Result Comment: BUBBA Garcia COMMENTS:NOTE: The therapeutic time for Heparin anticoagulation, based on Xa activity inhibition, is an APTT of 46-80 seconds. Performed By: #### L [id number] ####Patient Services Technician: VELMA [phone])[address] aPTT Coag (Bld) [Time] 81.4 s High 20.0-30.5 [facility] Comment on above: Result Comment: BUBBA Garcia COMMENTS:NOTE: The therapeutic time for Heparin anticoagulation, based on Xa activity inhibition, is an APTT of 46-80 seconds. Performed By: #### L [id number] ####Patient Services Technician: VELMA [phone])[address] aPTT Coag (Bld) [Time] 132.2 s Critically high 20.0-30. 5 [facility] Comment on above: Result Comment: BUBBA Garcia COMMENTS:NOTE: The therapeutic time for Heparin anticoagulation, based on Xa activity inhibition, is an APTT of 46-80 seconds. Performed By: #### L [id number] ####Patient Services Technician: VELMA [phone])[address] BASIC METABOLIC PANELon 03-18 Anion gap [Moles/Vol] 8 mmol/L Normal 3-13 [facility] Comment on above: Performed By: #### L AB15 ####Patient Services Technician: VELMA [phone])[facility] ([facility])[address] [place] [address] Calcium [Mass/Vol] 9.3 mg/dL Normal 8.4-10.4 [facility] Comment on above: Performed By: #### L AB15 ####Patient Services Technician: VELMA VALADEZ ([phone])[facility] ([facility])[address] [place] [address] [place] Chloride [Moles/Vol] 110 mmol/L High 98-107 [facility] Comment on above: Performed By: #### L AB15 ####Patient Services Technician: VELMA VALADEZ ([phone])[facility] ([facility])[address] [place] [address] CO2 [Moles/Vol] 18 mmol/L Low 22-30 [facility] Comment on above: Performed By: #### L AB15 ####Patient Services Technician: VELMA VALADEZ ([phone])[facility] ([facility])[address] [place] [address] Creatinine [Mass/Vol] 1.45 mg/dL High 0.52-1.04 [facility] Comment on above: Performed By: #### L AB15 ####Patient Services Technician: VELMA VALADEZ ([phone])[facility] ([facility])[address] [place] [address] [place] GLOMERULAR FILTRATION RATE ML/MIN/1.73 SQ M.PREDICTED 35.6 mL/min/1.73m*2 Low >60.0 [facility] Comment on above: Result Comment: Calc ulation based on the Chronic Kidney Disease Epidemiology Collaboration (CKD-EPI) equation refit without adjustment for race Performed By: #### L AB15 ####Patient Services Technician: VELMA VALADEZ ([phone])[facility] ([facility])[address] [place] [address] [place] Glucose [Mass/Vol] 100 mg/dL Normal 70-100 [facility] Comment on above: Performed By: #### L AB15 ####Patient Services Technician: VELMA [phone])[facility] ([facility])[address] [place] [address] Potassium [Moles/Vol] 4.5 mmol/L Normal 3.5-5.1 [facility] Comment on above: Performed By: #### L AB15 ####Patient Services Technician: VELMA VALADEZ ([phone])[facility] ([facility])[address] [place] [address] Sodium [Moles/Vol] 135 mmol/L Normal 135-145 [facility] Comment on above: Performed By: #### L AB15 ####Patient Services Technician: VELAM VALADEZ ([phone])[facility] ([facility])[address] [place] [address] Urea nitrogen [Mass/Vol] 30 mg/dL High 7-17 [facility] Comment on above: Performed By: #### L AB15 ####Patient Services Technician: VELMA VALADEZ ([phone])[facility] ([facility])[address] [place] [address] Basic metabolic 1998 panelOr dered By: Marielle Garcia on 04-04-2024 Anion gap [Moles/Vol] 8 mmol/L 3 - 13 mmol/L [facility] Calcium [Mass/Vol] 9.3 mg/dL 8.4 - 10. 4 mg/dL [facility] Chloride [Moles/Vol] 110 mmol/L High 98 - 10 7 mmol/L [facility] CO2 [Moles/Vol] 18 mmol/L Low 22 - 30 mmol/L [facility] Creatinine [Mass/Vol] 1.45 mg/dL High 0.52 - 1.04 mg/dL [facility] GFR/1.73 sq M.predicted (S/P/Bld) [Vol rate/Area] 35.6 mL/min Low - PINF [facility] Comment on above: Calculation based on the Chronic Kidney Disease Epidemiology Collaboration (CKD-EPI) equation refit without adjustment for race Glucose [Mass/Vol] 100 mg/dL 70 - 100 mg/dL [facility] Interpretation and review of laboratory results Abnormal [facility] Potassium [Moles/Vol] 4.5 mmol/L 3.5 - 5.1 mmol/L [facility] Sodium [Moles/Vol] 135 mmol/L 135 - 145 mmol/L [facility] Urea nitrogen [Mass/Vol] 30 mg/dL High 7 - 17 mg/dL [facility] CARECOORDon 04-04-2024 CARECOORD Normal [facility] CBC W Auto Differential pane l (Bld)on 04-04-2024 Basophils (Bld) [#/Vol] 0.1 10*3/uL 0.0 - 0.2 10*3/uL [facility] Basophils/100 WBC (Bld) 0.7 % 0.0 - 2.0 % [facility] Eosinophils (Bld) [#/Vol] 0.3 10*3/uL 0.0 - 0.5 10*3/uL [facility] Eosinophils/100 WBC (Bld) 3.2 % 0.0 - 6.0 % [facility] Erythrocyte distribution width (RBC) [Ratio] 14.2 % 11.5 - 15.0 % [facility] Hematocrit (Bld) [Volume fraction] 38.8 % 35.0 - 47.0 % [facility] Hemoglobin (Bld) [Mass/Vol] 12.5 g/dL 11.7 - 16.0 g/dL [facility] Immature granulocytes (Bld) [#/Vol] 0.1 10*3/uL High NINF - 0.1 10*3/uL [facility] Immature granulocytes/100 WBC (Bld) 0.6 % 0.0 - 2.0 % [facility] Interpretation and review of laboratory results Abnormal [facility] Lymphocytes (Bld) [#/Vol] 1.6 10*3/uL 1.0 - 4.3 10*3/uL [facility] Lymphocytes/100 WBC (Bld) 19.2 % 15.0 - 45.0 % [facility] MCH (RBC) [Entitic mass] 29.7 pg 26.0 - 34.0 pg [facility] MCHC (RBC) [Mass/Vol] 32.2 % 30.5 - 36.0 % [facility] MCV (RBC) [Entitic vol] 92.2 fL 77.0 - 99.0 fL [facility] Monocytes (Bld) [#/Vol] 0.8 10*3/uL 0.0 - 0.9 10*3/uL [facility] Monocytes/100 WBC (Bld) 9.9 % 5.0 - 13.0 % [facility] Neutrophils (Bld) [#/Vol] 5.3 10*3/uL 1.8 - 7.5 10*3/uL [facility] Neutrophils/100 WBC (Bld) 66.4 % 38.0 - 82.0 % [facility] Nucleated RBC/100 WBC (Bld) [Ratio] 0.0 % [facility] Platelet mean volume (Bld) [Entitic vol] 10.0 fL 9.0 - 12.7 fL [facility] Platelets (Bld) [#/Vol] 266 10*3/uL 140 - 440 10*3/uL [facility] RBC (Bld) [#/Vol] 4.21 10*6/uL 3.80 - 5.2 0 10*6/uL [facility] WBC (Bld) [#/Vol] 8.1 10*3/uL 3.6 - 10.7 10*3/uL [facility] CBC WITH AUTO DIFFERENTIALon 04-04-2024 Basophils (Bld) [#/Vol] 0.1 10*3/uL Normal 0.0-0.2 [facility] Comment on above: Performed By: #### L [id number] ####Patient Services Technician: VELMA VALADEZ ([phone])[facility])[address] [place] [address] Basophils/100 WBC (Bld) 0.7 % Normal 0.0-2.0 S [facility] Comment on above: Performed By: #### L [id number] ####Patient Services Technician: VELMA VALADEZ ([phone])[facility] ([facility])[address] [place] [address] Eosinophils (Bld) [#/Vol] 0.3 10*3/uL Normal 0.0-0.5 [facility] Comment on above: Performed By: #### L [id number] ####Patient Services Technician: VELAM VALADEZ ([phone])[facility])[address] [place] [address] [place] Eosinophils/100 WBC (Bld) 3.2 % Normal 0.0-6.0 [facility] Comment on above: Performed By: #### L [id number] ####Patient Services Technician: VELMA VALADEZ ([phone])[facility])[address] [place] [address] Erythrocyte distribution width (RBC) [Ratio] 14.2 % Normal 11.5-15.0 [facility] Comment on above: Performed By: #### L [id number] ####Patient Services Technician: VELMA VALADEZ ([phone])[facility])[address] [place] [address] Hematocrit (Bld) [Volume fraction] 38.8 % Normal 35.0-47.0 [facility] Comment on above: Performed By: #### L [id number] ####Patient Services Technician: VELMA VALADEZ ([phone])[address] Hemoglobin (Bld) [Mass/Vol] 12.5 g/dL Normal 11.7-16.0 [facility] Comment on above: Performed By: #### L [id number] ####Patient Services Technician: VELMA VALADEZ ([phone])[facility])[address] [place] [address] IMMATURE GRANS % 0.6 % Normal 0.0-2.0 [facility] Comment on above: Performed By: #### L [id number] ####Patient Services Technician: VELMA VALADEZ ([phone])[facility])[address] [place] [address] IMMATURE GRANS ABSOLUTE 0.1 10*3/uL High <0.1 [facility] Comment on above: Performed By: #### L [id number] ####Patient Services Technician: VELMA VALADEZ ([phone])[facility])[address] [place] [address] Lymphocytes (Bld) [#/Vol] 1.6 10*3/uL Normal 1.0-4.3 [facility] Comment on above: Performed By: #### L [id number] ####Patient Services Technician: VELMA VALADEZ ([phone])[facility])[address] [place] [address] Lymphocytes/100 WBC (Bld) 19.2 % Normal 15.0-45.0 [facility] Comment on above: Performed By: #### L [id number] ####Patient Services Technician: VELMA VALADEZ ([phone])[facility] ([facility])[address] [place] [address] MCH (RBC) [Entitic mass] 29.7 pg Normal 26.0-34.0 [facility] Comment on above: Performed By: #### L [id number] ####Patient Services Technician: VELMA VALADEZ ([phone])[facility])[address] [place] [address] MCHC 32.2 % Normal 30.5-36.0 [facility] Comment on above: Performed By: #### L [id number] ####Patient Services Technician: VELMA VALADEZ ([phone])[facility] ([facility])[address] [place] [address] MCV (RBC) [Entitic vol] 92.2 fL Normal 77.0-99.0 S [facility] Comment on above: Performed By: #### L [id number] ####Patient Services Technician: VELMA VALADEZ ([phone])[facility])[address] [place] [address] Monocytes (Bld) [#/Vol] 0.8 10*3/uL Normal 0.0-0.9 [facility] Comment on above: Performed By: #### L [id number] ####Patient Services Technician: VELMA VALADEZ ([phone])[facility])[address] [place] [address] Monocytes/100 WBC (Bld) 9.9 % Normal 5.0-13.0 [facility] Comment on above: Performed By: #### L [id number] ####Patient Services Technician: VELMA VALADEZ ([phone])[facility])[address] [place] [address] NEUTROPHILS ABSOLUTE 5.3 10*3/uL Normal 1.8-7.5 [facility] Comment on above: Performed By: #### L [id number] ####Patient Services Technician: VELMA VALADEZ ([phone])[facility] ([facility])[address] [place] [address] Neutrophils/100 WBC (Bld) 66.4 % Normal 38.0-82.0 [facility] Comment on above: Performed By: #### L [id number] ####Patient Services Technician: VELMA VALADEZ ([phone])[facility] ([facility])[address] [place] [address] NRBC 0.0 /100 WBCs Normal 0.0-2.0 [facility] Comment on above: Performed By: #### L [id number] ####Patient Services Technician: VELMA VALADEZ ([phone])[facility] ([facility])[address] [place] [address] Platelet mean volume (Bld) [Entitic vol] 10.0 fL Normal 9.0-12.7 [facility] Comment on above: Performed By: #### L [id number] ####Patient Services Technician: VELMA VALADEZ ([phone])[facility] ([facility])[address] [place] [address] [place] Platelets (Bld) [#/Vol] 266 10*3/uL Normal 140-440 [facility] Comment on above: Performed By: #### L [id number] ####Patient Services Technician: VELMA VALADEZ ([phone])[facility] ([facility])[address] [place] [address] [place] RBC (Bld) [#/Vol] 4.21 10*6/uL Normal 3.80-5.20 [facility] Comment on above: Performed By: #### L [id number] ####Patient Services Technician: VELMA VALADEZ ([phone])[facility] ([facility])[address] [place] [address] [place] WBC (Bld) [#/Vol] 8.1 10*3/uL Normal 3.6-10.7 [facility] Comment on above: Performed By: #### L [id number] ####Patient Services Technician: VELMA VALADEZ ([phone])[facility] ([address] Consulton 04-04-2024 Consult Normal [facility] Consult Normal [facility] ECG 12-LEADon 04-04-2024 ECG 12-LEAD IMPRESSION: Atrial fibrillation Borderline T abnormalities, inferior leads Compared to ECG 08/28/11 Sinus rhythm no longer noted Electronically Signed On 04-04-2024 03:48:37 EDT by Sourav Swenson Normal [facility] ED Nursing Noteon 04-04-2024 ED Nursing Note Report to Deliaarianne Bond RN 04/04/24 0342 [facility] ED Nursing Note Multiple attempts ma sheri to call report to [facility] with phone number provided by bus system operator, but when phone number dialed RN only gets busy tone. Will try again. Shannon Bond RN 04/04/24 0331 [facility] ED Nursing Note [facility] at bedside to transport pt to [facility]. Paperwork with EMS Shannon Bond RN 04/04/24 0314 [facility] IDNon 04-04-2024 IDN The patient is Moderately Stable - Low risk of patient condition declining or worsening The patient's goals for the shift include safety The clinical goals for the shift include therapeutic aptt Normal [facility] IDN [facility] No Panel Informationon 04-04 Left Pop Rfx 1.1 s [facility] Acute extensive DVT in the right lower [...] popliteal vein. History of DVT in 2021 Purchasing Analyst Details A george scale, color Doppler imaging, spectral Doppler analysis and B-flow ultrasound was performed. During the study 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 and transverse views were obtained. Pulsed wave doppler was performed. The exam was performed with the patient in the supine position. Overall the study quality was adequate. Study was technically difficult due to: bowel gas. CV CPACS Left MICHELLE 0.62 [facility] Left dorsalis pedis BP 78 mmHg [facility] Left posterior tibial 86 mmHg [facility] Right MICHELLE 0.55 [facility] Right arm BP 139 mmHg [facility] Right dorsalis pedis BP 65 mmHg S [facility] Right posterior tibial 76 mmHg [facility] Right side findings: Resting MICHELLE is 0.55. [...] of RLE discovered just before PVR testing. Purchasing Analyst Details A spectral Doppler analysis ultrasound [...] On 04-04-2024 03:48:37 EDT by Sourav Swenson [employer] No Panel InformationOrdered By: Sourav Swenson on 04-04-2024 P [place] 0 degrees [employer] Work Phone: [place] Interval 0 ms [employer] Work Phone: QRS [place] 40 degrees [employer] Phone: QRSD Interval 86 ms [employer] Work Phone: QT Interval 352 ms [employer] Phone: QTC Interval 411 ms [employer] Work Phone: T Wave [place] -3 degrees [employer] Phone: [employer] Work Phone: Progress Noteon 04-04-2024 Progress Note Normal [facility] Progress Note Normal [facility] Progress Note Normal [facility] Vital signsOrdered By: Cathy Swenson on 04-04-2024 Heart rate 82 /min bpm [employer] Work Phone: aPTT Coag (Bld) [Time]on aPTT Coag (PPP) [Time] 81.8 s High 20.0 - 30.5 s [employer] Interpretation and review of laboratory results Abnormal [employer] NOTE: The therapeuti c time for Heparin anticoagulation, based on Xa activity inhibition, is an APTT of 46-80 seconds. [facility] aPTT Coag (PPP) [Time] 81.4 s High 20.0 - 30.5 s [facility] Interpretation and review of laboratory results Abnormal [facility] NOTE: The therapeuti c time for Heparin anticoagulation, based on Xa activity inhibition, is an APTT of 46-80 seconds. [facility] aPTT Coag (Bld) [Time]Della chaudhry By: Devika Eisenberg on 04-04-2024 aPTT Coag (PPP) [Time] 132.2 s Critically high 20 .0 - 30.5 s [facility] Interpretation and review of laboratory results Abnormal [facility] NOTE: The therapeuti c time for Heparin anticoagulation, based on Xa activity inhibition, is an APTT of 46-80 seconds. [facility] APTTon 04-03-2024 aPTT Coag (Bld) [Time] 25.6 s Normal 20.0-30.5 [facility] Comment on above: Result Comment: BUBBA Garcia COMMENTS:NOTE: The therapeutic time for Heparin anticoagulation, based on Xa activity inhibition, is an APTT of 46-80 seconds. Performed By: #### L [id number] ####Patient Services Technician: MARYLOU MAY ([phone])[facility] ([facility])[address] [place] [address] CBC (HEMOGRAM)on 04-03-2024 Erythrocyte distribution width (RBC) [Ratio] 14.4 % Normal 11.5-15.0 [facility] Comment on above: Performed By: #### L [id number] ####Patient Services Technician: MARYLOU MAY ([phone])[facility])[address] [place] [address] Hematocrit (Bld) [Volume fraction] 38.6 % Normal 35.0-47.0 [facility] Comment on above: Performed By: #### L [id number] ####Patient Services Technician: MARYLOU MAY ([phone])[facility] ([facility])[address] [place] [address] Hemoglobin (Bld) [Mass/Vol] 12.7 g/dL Normal 11.7-16.0 [facility] Comment on above: Performed By: #### L [id number] ####Patient Services Technician: MARYLOU MAY ([phone])[facility] ([facility])[address] MCH (RBC) [Entitic mass] 30.4 pg Normal 26.0-34.0 [facility] Comment on above: Performed By: #### L [id number] ####Patient Services Technician: MARYLOU MAY ([phone])[facility] ([facility])[address] MCHC 32.9 % Normal 30.5-36.0 [facility] Comment on above: Performed By: #### L [id number] ####Patient Services Technician: MARYLOU MAY ([phone])[facility] ([facility])[address] MCV (RBC) [Entitic vol] 92.3 fL Normal 77.0-99.0 [facility] Comment on above: Performed By: #### L [id number] ####Patient Services Technician: MARYLOU MAY ([phone])[facility] ([facility])[address] Platelet mean volume (Bld) [Entitic vol] 10.0 fL Normal 9.0-12.7 [facility] Comment on above: Performed By: #### L [id number] ####Patient Services Technician: MARYLOU MAY ([phone])[facility] [place] ([facility])[address] Platelets (Bld) [#/Vol] 283 10*3/uL Normal 140-440 [facility] Comment on above: Performed By: #### L [id number] ####Patient Services Technician: MARYLOU MAY ([phone])[facility] [place] ([facility])[address] RBC (Bld) [#/Vol] 4.18 10*6/uL Normal 3.80-5.20 [facility] Comment on above: Performed By: #### L [id number] ####Patient Services Technician: MARYLOU MAY ([phone])[facility] ([facility])[address] WBC (Bld) [#/Vol] 9.3 10*3/uL Normal 3.6-10.7 [facility] Comment on above: Performed By: #### L [id number] ####Patient Services Technician: MARYLOU SEGURAPerriJHONATHAN ([phone])[facility] ([facility])[address] CBC panel Auto (Bld)on 04-03 Erythrocyte distribution width (RBC) [Ratio] 14.4 % 11.5 - 15.0 % [facility] Hematocrit (Bld) [Volume fraction] 38.6 % 35.0 - 47.0 % [facility] Hemoglobin (Bld) [Mass/Vol] 12.7 g/dL 11.7 - 16.0 g/dL [facility] Interpretation and review of laboratory results Normal [facility] MCH (RBC) [Entitic mass] 30.4 pg 26.0 - 34.0 pg [facility] MCHC (RBC) [Mass/Vol] 32.9 % 30.5 - 36.0 % [facility] MCV (RBC) [Entitic vol] 92.3 fL 77.0 - 99.0 fL [facility] Platelet mean volume (Bld) [Entitic vol] 10.0 fL 9.0 - 12.7 fL [facility] Platelets (Bld) [#/Vol] 283 10*3/uL 140 - 440 10*3/uL [facility] RBC (Bld) [#/Vol] 4.18 10*6/uL 3.80 - 5.2 0 10*6/uL [facility] WBC (Bld) [#/Vol] 9.3 10*3/uL 3.6 - 10.7 10*3/uL [facility] COMPREHENSIVE METABOLIC PANE Gilberto 04-03-2024 Albumin [Mass/Vol] 4.3 g/dL Normal 3.5-5.0 [facility] Comment on above: Performed By: #### L ABJovan, [id number], LAB17 ####Patient Services Technician: MARYLOU MAY ([phone])[facility] ([facility])[address] ALP [Catalytic activity/Vol] 91 U/L Normal 38-126 [facility] Comment on above: Performed By: #### L ABJovan, [id number], LAB17 ####Patient Services Technician: MARYLOU MAY ([phone])[facility]ITALSim[facility] VELASQUEZPRESBYTERIAN SANT[facility] MED[facility]ENTERN ([facility])[address] ALT [Catalytic activity/Vol] 10 U/L Normal 0-34 [facility] Comment on above: Performed By: #### [place] AB103, [id number], LAB17 ####Patient Services Technician: MARYLOU MAY ([phone])[facility]ITALSim[facility] VELASQUEZPRESBYTERIAN SANTA FE MEDICAL CENTERN ([facility])[address] [address] Anion gap [Moles/Vol] 9 mmol/L Normal 3-13 [facility] Comment on above: Performed By: #### Weston DAWSON, [id number], LAB17 ####Patient Services Technician: MARYLOU MAY ([phone])[facility] HOSPITALSimran VELASQUEZPRESBYTERIAN SANTA FE MEDICAL CENTERN (SBHLAB)[address] AST [Catalytic activity/Vol] 19 U/L Normal 15-46 [facility] Comment on above: Performed By: #### Weston DAWSON, [id number], LAB17 ####Patient Services Technician: MARYLOU MAY ([phone])[facility] HOSPITALSimran VELASQUEZPRESBYTERIAN SANTA FE MEDICAL CENTERN (SBHLAB)[address] [place] [address] [place] Bilirubin [Mass/Vol] 1.1 mg/dL Normal 0.2-1.3 [facility] Comment on above: Performed By: #### L AB103, [id number], LAB17 ####Patient Services Technician: MARYLOU MAY ([phone])[facility] HOSPITALSimran VELASQUEZPRESBYTERIAN SANTA FE MEDICAL CENTERN (SBHLAB)[address] Calcium [Mass/Vol] 9.3 mg/dL Normal 8.4-10.4 [facility] Comment on above: Performed By: #### L AB103, [id number], LAB17 ####Patient Services Technician: MARYLOU MAY ([phone])[facility] (SBHLAB)[address] Chloride [Moles/Vol] 107 mmol/L Normal 98-107 [facility] Comment on above: Performed By: #### L ABJovan, [id number], LAB17 ####Patient Services Technician: MARYLOU MAY ([phone])[facility] (SBHLAB)[address] CO2 [Moles/Vol] 20 mmol/L Low 22-30 [facility] Comment on above: Performed By: #### Weston REIS103, QME188, LAB17 ####Patient Services Technician: MARYLOU MAY ([phone])[facility] (SBHLAB)[address] Creatinine [Mass/Vol] 1.54 mg/dL High 0.52-1.04 [facility] Comment on above: Performed By: #### Weston DAWSON, [id number], LAB17 ####Patient Services Technician: MARYLOU MAY ([phone])[facility] ([facility])[address] GLOMERULAR FILTRATION RATE ML/MIN/1.73 SQ M.PREDICTED 33.2 mL/min/1.73m*2 Low >60.0 [facility] Comment on above: Result Comment: Calc ulation based on the Chronic Kidney Disease Epidemiology Collaboration (CKD-EPI) equation refit without adjustment for race Performed By: #### L AB103, XEA116, LAB17 ####Patient Services Technician: MARYLOU MAY ([phone])[facility] (HLAB)[address] Glucose [Mass/Vol] 115 mg/dL High 70-100 [facility] Comment on above: Performed By: #### L AB103, ROY807, LAB17 ####Patient Services Technician: MARYLOU MAY ([phone])[facility] HOSPITALSimran CARRILLOBossman (SBHLAB)[address] Potassium [Moles/Vol] 5.7 mmol/L High 3.5-5.1 [facility] Comment on above: Performed By: #### L AB103, ZNF220, LAB17 ####Patient Services Technician: MARYLOU MAY ([phone])[facility]OSPITALSimran [facility]ZPAGE [facility] (SBHLAB)[address] Protein [Mass/Vol] 7.7 g/dL Normal 6.3-8.2 [facility] Comment on above: Performed By: #### L AB103, XLX517, LAB17 ####Patient Services Technician: MARYLOU MAY ([phone])[facility] HOSPITALSimran HADDOCK (SBHLAB)[address] Sodium [Moles/Vol] 135 mmol/L Normal 135-145 [facility] Comment on above: Performed By: #### L AB103, MHF297, LAB17 ####Patient Services Technician: MARYLOU MAY ([phone])[facility] (SBHLAB)[address] Urea nitrogen [Mass/Vol] 29 mg/dL High 7-17 [facility] Comment on above: Performed By: #### L AB103, OGK311, LAB17 ####Patient Services Technician: MARYLOU MAY ([phone])[facility] (SBHLAB)[address] HEAD WO IV CONTRASTon CT HEAD WO IV CONTRAST Normal [facility] CT Head WO contraston 2023 1. No acute finding. Chronic left cerebellar infarct.. Report Dictated on Electronically Signed By: Toño Tang MD Electronically Signed Date/Time: 04/03/2024 9:21 PM T [facility] Patient Name: MEL CARVER RD : [...] midline shift. No hydrocephalus. Left globe prosthesis. [facility] Toño Tang MD - 04/03/2024 Patient Name: MEL POP : 1940 [facility]#: [id number] Exam Date/Time: 04/03/2024 21:06 Procedure: CT HEAD [...] Electronically Signed Date/Time: 04/03/2024 9:21 PM EDT [facility] Radiology Study observation (narrative) [facility] CT Head WO contrastOrdered B y: Toño Tang on 04-03-2024 [employer] Work Phone: CTA AORTA BL ILIOFEMORAL W W Oon 04-03-2024 CTA AORTA BL ILIOFEMORAL W WO Normal [facility] [employer] [facility] CTA Thoracic and Abdominal A zachary and Bilateral Runoff Vessels WO and W contrast Cheryl 04-03-2024 1. Severe lower extremity atherosclerotic disease. 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 2. 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 3. Severe diverticulosis. Report Dictated on Electronically Signed By: Toño Tang MD Electronically Signed Date/Time: 04/03/2024 9:36 PM [facility] [facility] Patient Name: MEL CARVER RD : 1940 [facility]#: [id number] Exam Date/Time: 04/03/2024 21:14 Procedure: CTA AORTA [...] into the mid to distal lower leg. [facility] Toño Tang MD - 04/03/2024 [facility] 1940 [id number] Exam Date/Time: 04/03/2024 21:14 Procedure: CTA AORTA [...] Electronically Signed Date/Time: 04/03/2024 9:36 PM EDT [facility] Radiology Study observation (narrative) [facility] metabolic 1998 panelon 04-03-2024 Albumin [Mass/Vol] 4.3 g/dL 3.5 - 5.0 g/dL [facility] ALP [Catalytic activity/Vol] 91 U/L 38 - 126 U/L [facility] ALT [Catalytic activity/Vol] 10 U/L 0 - 34 U/L [facility] Anion gap [Moles/Vol] 9 mmol/L 3 - 13 mmol/L [facility] AST [Catalytic activity/Vol] 19 U/L 15 - 46 U/L [facility] Bilirubin [Mass/Vol] 1.1 mg/dL 0.2 - 1 .3 mg/dL [facility] Calcium [Mass/Vol] 9.3 mg/dL 8.4 - 10. 4 mg/dL [facility] Chloride [Moles/Vol] 107 mmol/L 98 - 10 7 mmol/L [facility] CO2 [Moles/Vol] 20 mmol/L Low 22 - 30 mmol/L [facility] Creatinine [Mass/Vol] 1.54 mg/dL High 0.52 - 1.04 mg/dL [facility] GFR/1.73 sq M.predicted (S/P/Bld) [Vol rate/Area] 33.2 mL/min Low - PINF [facility] Comment on above: Calculation based on the Chronic Kidney Disease Epidemiology Collaboration (CKD-EPI) equation refit without adjustment for race Glucose [Mass/Vol] 115 mg/dL High 70 - 100 mg/dL [facility] Interpretation and review of laboratory results Abnormal [facility] Potassium [Moles/Vol] 5.7 mmol/L High 3.5 - 5.1 mmol/L [facility] Protein [Mass/Vol] 7.7 g/dL 6.3 - 8.2 g/dL [facility] Sodium [Moles/Vol] 135 mmol/L 135 - 145 mmol/L [facility] Urea nitrogen [Mass/Vol] 29 mg/dL High 7 - 17 mg/dL [facility] ED Nursing Noteon 04-03-2024 ED Nursing Note Normal [facility] ED Provider Noteon ED Provider Note Normal [facility] Laboratory - Chemistry and C hemistry - challengeon 04-03-2024 Troponin I.cardiac [Mass/Vol] 0.014 ng/mL NINF - 0.034 ng/mL [facility] Magnesium [Mass/Vol] 2.3 mg/dL 1.6 - 2 .3 mg/dL [facility] Laboratory - Coagulationon 0 04-03-2024 aPTT Coag (PPP) [Time] 26.7 s 20.0 - 30.5 s [facility] INR Coag (PPP) [Relative time] 1.0 {INR} 0.9 - 1.1 [facility] Comment on above: Recommended Anticoag ulant Therapy: [...] 11.7 s 9.0 - 1 2.0 s [facility] MAGNESIUMon 04-03-2024 Magnesium [Mass/Vol] 2.3 mg/dL Normal 1.6-2.3 [facility] Comment on above: Performed By: #### L AB103, [id number], LAB17 ####Patient Services Technician: MARYLOU MAY ([phone])[facility] ([facility])[address] [place] [address] Magnesium [Mass/Vol]on 04-03 Interpretation and review of laboratory results Normal [facility] No Panel Informationon 04-03 [facility] Interpretation and review of laboratory results Normal [facility] PROTIME AND APTTon aPTT Coag (Bld) [Time] 26.7 s Normal 20.0-30.5 [facility] Comment on above: Performed By: #### L [id number] ####Patient Services Technician: MARYLOU MAY ([phone])[facility] HOSPITALSimran SERRATO ([facility])[address] [place] [address] INR Coag (PPP) [Relative time] 1.0 {INR} Normal 0.9-1.1 [facility] Comment on above: Result Comment: Timothy [...] prevent Myocardial Infarction Performed By: #### L [id number] ####Patient Services Technician: MARYLOU MAY ([phone])[facility]OSPITALSim[facility] (SBHLAB)[address] PT Coag (PPP) [Time] 11.7 s Normal 9.0-12.0 [facility] Comment on above: Performed By: #### L [id number] ####Patient Services Technician: MARYLOU MAY ([phone])[facility]OSPITALSim[facility] (SBHLAB)[address] [place] [address] [place] TROPONIN Ion 04-03-2024 Troponin I.cardiac [Mass/Vol] 0.014 ng/mL Normal <0.034 [facility] Comment on above: Result Comment: BUBBA Garcia COMMENTS:Patients with high levels of Biotin oral intake (ie >5 mg/day) may have falsely decreased Troponin levels. Performed By: #### L AB103, MCL379, LAB17 ####Patient Services Technician: MARYLOU MAY ([phone])[facility] HOSPITALSim[facility] HADDOCK (HLAB)[address] [place] [address] [place] Troponin I.cardiac [Mass/Vol ]on 04-03-2024 Interpretation and review of laboratory results Normal [facility] Patients with high levels of Biotin oral intake (ie >5 mg/day) may have falsely decreased Troponin levels. [facility] aPTT Coag (Bld) [Time]on aPTT Coag (PPP) [Time] 25.6 s 20.0 - 30.5 s [facility] Interpretation and review of laboratory results Normal [facility] NOTE: The therapeuti c time for Heparin anticoagulation, based on Xa activity inhibition, is an APTT of 46-80 seconds. [facility] MR Lower leg - left WO and [...] Electronically Signed Date/Time: 06/16/2023 8:10 AM EST [facility] Patient Name: MEL CARVER RD : [...] and lateral ankle resulting from ORIF hardware. [facility] Dimas Woodward MD - 06/16/2023 Patient [...] MD Electronically Signed Date/Time: 06/16/2023 8:10 AM [facility] MR Lower leg - left WO and W contrast IVOrdered By: Dimas Woodward on 06-16-2023 [employer] Work Phone: MR Lower leg - left WO and W contrast Cheryl 06-15-2023 Radiology Study observation (narrative) [facility] No Panel Informationon 05-24 No evidence of venous thrombus in the left lower extremity. Report Dictated on Electronically Signed By: Yasmany Whyte MD Electronically Signed Date/Time: 05/24/2023 11:42 AM [employer] [facility] Patient Name: MEL CARVER RD [...] augmentation and normal response to Valsalva maneuver. [facility] Yasmany Whyte MD - 05/24/2023 [...] Electronically Signed Date/Time: 05/24/2023 11:[address] [employer] [address] Neck W contrast Cheryl 02-16 Patient [...] MD Electronically Signed Date/Time: 03/11/2023 10:28 AM [facility] Efrain Yi MD - 03/11/2023 [facility] POP [facility] 1940 [id number] Exam Date/Time: 03/08/2023 11:33 Procedure: CT SOFT [...] MD Electronically Signed Date/Time: 03/11/2023 10:28 AM [facility] [employer] CT Neck W contrast IVOrdered By: Efrain Yi on 03-11-2023 [employer] Work Phone: CT Neck W contrast Cheryl 02-16 Radiology Study observation (narrative) Inna alth US Head and neck soft tissue on 02-24-2023 Indeterminate soft tissue nodules in the patients area of palpable concern in the left neck, which may represent enlarged left submandibular gland with obstructing sialolith and adjacent enlarged lymph node. Recommend further evaluation with contrast-enhanced neck CT. Report Dictated on Electronically Signed By: Ryan Mccollum MD Electronically Signed Date/Time: 02/24/2023 8:23 AM EDT [facility] Patient Name: MEL CARVER RD [facility] 1940 [id number] Exam Date/Time: 02/22/2023 13:44 Procedure: US HEAD [...] measuring 1.8 x 1.6 x 1.4 cm. [facility] Ryan Mccollum MD - 02/24/2023 Patient [...] Electronically Signed Date/Time: 02/24/2023 8:23 AM EDT [facility] Head and neck soft tissue Ordered By: Ryan Mccollum on 02-24-2023 [facility] Work Phone: [phone] [facility] Head and neck soft tissue on 02-22-2023 Radiology Study observation (narrative) [facility] CONSULT PROGon 06-29-2022 CONSULT PROG HNO ID: [id number] Author: Nemo Petty APRN.BUSINESS EMPLOYMENT SPECIALIST Service: Wound/Ostomy Author Type: Nurse Practitioner Type: Consult Progress Note Filed: 06/29/2022 12:51 PM Note Text: WOUND CARE SERVICE PROGRESS RRT NOTE SERVICE DATE: 06/29/2022 SERVICE TIME: 10:20 TIME SPENT (minutes): 30 REASON FOR CONSULT: follow up wound care visit to reassess skin/wounds CHIEF COMPLAINT: right finger wound Subjective HISTORY OF PRESENT ILLNESS: Ms. Jose Alberto Castillo is a 81 year old female who is seen today with Delia Bruno, Wound/director payment, as a follow up wound care visit [...] Wound Image Site Assessment Red;Intact Allie-Wound Assessment Rosita Drainage Amount None Treatments Protective Barrier Ointment Dressing Foam- Adhesive Active Orders Date Order Priority Status Authorizing Provider 06/28/22 1423 zinc oxide 20 % ointment Active Iwona Chu, 06/21/22 1248 DRESSING CARE (SPECIFY) ([place]) Routine Active Fidel Carmen APRN.BUSINESS EMPLOYMENT SPECIALIST - Specify:: Apply allevyn foam to coccyx, peel down every shift to assess skin and to apply zinc oxide, change every 3 days or if soiled. 06/21/22 1248 zinc oxide 20 % Active Fidel Carmen APRN.BUSINESS EMPLOYMENT SPECIALIST Wound 06/16/22 Incision Knee Left;Posterior (Active) Assessments 06/29/2022 10:27 AM Wound Image Site Assessment Dry;Intact Allie-Wound Assessment Intact Closure Sutures Drainage Amount None Treatments Open to Air No Linked orders to display Wound 06/21/22 0948 Atypical Wound Finger (Comment which one) Right (Active) Assessments 06/29/2022 10:23 AM Wound Image Site Assessment Red;Rosita Allie-Wound Assessment Intact Wound Length (cm) 2 cm Wound Width (cm) 2.5 cm Wound Surface Area (cm2) 5 cm2 Wound Depth (cm) 0.1 cm Wound Volume (cm3) 0.5 (more content not included)... Normal [facility] NUTRITIONon 06-29-2022 NUTRITION HNO ID: [id number] Author: Iwona Pelayo RD Service: Nutrition Therapy Author Type: Registered Dietitian Type: Nutrition Filed: 06/29/2022 1:38 PM Note Text: NUTRITION THERAPY PROGRESS NOTE SERVICE DATE: 06/29/2022 SERVICE TIME: 13:30 Nutrition Assessment: Recommended Malnutrition Diagnosis: No Malnutrition Identified (06/23/22 1109 : Parul Mcallister RD) Estimated kilocalorie needs: 9563-6948 Calorie Calculation Method: 25-30 kcals/kg Estimated protein [...] DATE: June 29, 2022 TIME: 10:17 AM [facility] PT EDon 06-29-2022 PT ED HNO ID: [id number] Author: Joana Tolbert RPh Service: Pharmacy Author [...] tolerating anticoag therapy (thrombi) RN and outpatient [facility] pharmacy aware medications are pending to [...] information Outcomes not met: N/A Joana Tolbert [facility] CNDSon 06-28-2022 CNDS HNO ID: [id number] Author: Iwona Chu DO Service: Hospital Medicine [...] MD Attending: Collette Rahman DO Primary Service: BLAS MANJARREZ MY CONDITION AT DISCHARGE: Stable REASON I [...] micropuncture needle and serially upsized to a 5-Panamanian sheath. A venogram was then performed, which [...] time, the sheath was upsized to an 8-Panamanian sheath. An intravascular ultrasound was performed. This [...] educational literat (more content not included)... Normal [facility] NURSING PROGon 06-28-2022 NURSING PROG HNO ID: [id number] Author: John Castro RN Service: Nursing Author Type: Registered Nurse Type: Nursing Progress Note Filed: 06/28/2022 2:28 PM Note Text: Other: Ambulatory pulse ox per Dr. Chu SpO2 on Room air at rest: 91% SpO2 while ambulating on Room air: 83% SpO2 while ambulating on 2 liters of oxygen: 91% Normal [facility] Bacteria Spec Resp Culton Bacteria identified Respiratory culture Nom (Unsp spec) CULTURE, RESPIRATORY: Few Normal respiratory radha present ORGANISM ID: 1 Few Lactose fermenting gram negative rods Insignificant colony count. No further workup. GRAM STAIN: Rare Gram positive cocci Few Polymorphonuclear leukocytes Few Epithelial cells Abnormal 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 [...] June 25, 2022 TIME: 1:[address] [facility] Bacteria Spec Resp Culton Bacteria identified Respiratory culture Nom (Unsp spec) CULTURE, RESPIRATORY: Moderate Normal respiratory radha present GRAM STAIN: Moderate Mixed oral radha Few Polymorphonuclear leukocytes Few Epithelial cells Abnormal [facility] Comment on above: Performed By: #### 3 2355-0 ####[facility] LABORATORYCLIA [id number] [place] [address] [place] Basic metabolic 2000 panelon 06-24-2022 Anion gap [Moles/Vol] 10 mmol/L Normal 9-18 [facility] Comment on above: Order Comment: Speci men Type: BLOOD SPECIMENOrdering Facility: [facility] Address: [address] [place] [id number] Performed By: #### 2 4321-2, 59699-1 ####[facility] LABORATORYCLIA [id number] [place] [address] [place] Calcium [Mass/Vol] 9.0 mg/dL Normal 8.5-10.2 [facility] Comment on above: Order Comment: Speci men Type: BLOOD SPECIMENOrdering Facility: [facility] Address: [address] [address] Performed By: #### 2 4321-2, 69935-2 ####[facility] LABORATORYCLIA [id number] [address] OF [facility] Chloride [Moles/Vol] 103 mmol/L Normal 97-105 [facility] Comment on above: Order Comment: Speci men Type: BLOOD SPECIMENOrdering Facility: [facility] Address: [address] [place] [address] Performed By: #### 2 4321-2, 99690-1 ####[facility] LABORATORYCLIA [id number] [address] OF [facility] CO2 [Moles/Vol] 23 mmol/L Normal 22-30 [facility] Comment on above: Order Comment: Speci men Type: BLOOD SPECIMENOrdering Facility: [facility] Address: [address] [place] [address] Performed By: #### 2 4321-2, 20332-9 ####[facility]ORATORYCLIA [id number] [address] OF [facility] Creatinine [Mass/Vol] 0.73 mg/dL Normal 0.58-0.96 [facility] Comment on above: Order Comment: Speci men Type: BLOOD SPECIMENOrdering Facility: [facility] Address: [address] [place] [address] Performed By: #### 2 4321-2, 83687-8 ####[facility] LABORATORYCLIA [id number] [address] ESTIMATED GLOMERULAR FILTRATION RATE 82 mL/min/1.73m??? Normal >=60 [facility] Comment on above: Order Comment: Speci men Type: BLOOD SPECIMENOrdering Facility: [facility] Address: [address] [place] [address] Result Comment: Isa mated Glomerular Filtration Rate [...] actual GFR. Performed By: #### 2 4321-2, 52928-2 ####[facility] LABORATORYCLIA [id number] [place] [address] [place] Glucose [Mass/Vol] 165 mg/dL High 74-99 [facility] Comment on above: Order Comment: Rhina men Type: BLOOD SPECIMENOrdering Facility: [facility] Address: [address] [place], [place] [id number] Result Comment: The [place] Diabetes Association (ADA) provides guidance for cutoff [...] Standards of Medical Care in Diabetes 2016, [place] [employer] Association. Diabetes Care. 2016.39(Suppl 1). Performed By: #### 2 4321-2, 10507-5 ####[facility] LABORATORYCLIA [id number] [place] [address] [place] Potassium [Moles/Vol] 5.0 mmol/L Normal 3.7-5.1 [facility] Comment on above: Order Comment: Rhina mason Type: BLOOD SPECIMENOrdering Facility: [facility] Address: [address] [place], [place] [id number] Performed By: #### 2 4321-2, 68125-9 ####[facility]ATORYCLIA [id number] [place] [address] [place] Sodium [Moles/Vol] 136 mmol/L Normal 136-144 [facility] Comment on above: Order Comment: Rhina men Type: BLOOD SPECIMENOrdering Facility: [facility] Address: [address] [address] Performed By: #### 2 4321-2, 56143-0 ####[facility] LABORATORYCLIA [id number] [address] STATES [facility] Urea nitrogen [Mass/Vol] 14 mg/dL Normal 7-21 [facility] Comment on above: Order Comment: Speci men Type: BLOOD SPECIMENOrdering Facility: [facility] Address: [address] [place] [address] Performed By: #### 2 4321-2, 25160-0 ####[facility]ORATORYCLIA [id number] [address] [place] CBC panel Auto (Bld)on 06-24 Erythrocyte distribution width (RBC) [Ratio] 17.0 % High 11.5-15.0 [facility] Comment on above: Order Comment: Speci men Type: BLOOD SPECIMENOrdering Facility: [facility] Address: [address] [place] [address] Performed By: #### 5 8410-2 ####[facility] LABORATORYCLIA [id number] [address] [place] Hematocrit (Bld) [Volume fraction] 27.2 % Low 36.0-46.0 [facility] Comment on above: Order Comment: Speci men Type: BLOOD SPECIMENOrdering Facility: [facility] Address: [address] [place] [address] Performed By: #### 5 8410-2 ####[facility]ATORYCLIA [id number] [address] [place] Hemoglobin (Bld) [Mass/Vol] 8.9 g/dL Low 11.5-15.5 [facility] Comment on above: Order Comment: Speci men Type: BLOOD SPECIMENOrdering Facility: [facility] Address: [address] [place] [address] Performed By: #### 5 8410-2 ####[facility] LABORATORYCLIA [id number] [address] MCH (RBC) [Entitic mass] 30.9 pg Normal 26.0-34.0 [facility] Comment on above: Order Comment: Speci men Type: BLOOD SPECIMENOrdering Facility: [facility] Address: [address] [place] [address] Performed By: #### 5 8410-2 ####[facility] LABORATORYCLIA [id number] [address] MCHC (RBC) [Mass/Vol] 32.7 g/dL Normal 30.5-36.0 [facility] Comment on above: Order Comment: Speci men Type: BLOOD SPECIMENOrdering Facility: [facility] Address: [address] [place] [address] Performed By: #### 5 8410-2 ####[facility] LABORATORYCLIA [id number] [address] MCV (RBC) [Entitic vol] 94.4 fL Normal 80.0-100.0 [facility] Comment on above: Order Comment: Speci men Type: BLOOD SPECIMENOrdering Facility: [facility] Address: [address] [place] [address] Performed By: #### 5 8410-2 ####[facility] LABORATORYCLIA [id number] [address] Nucleated RBC (Bld) [#/Vol] 0.03 10*3/uL High <0.01 [facility] Comment on above: Order Comment: Speci men Type: BLOOD SPECIMENOrdering Facility: [facility] Address: [address] [place] [address] Performed By: #### 5 8410-2 ####[facility] LABORATORYCLIA [id number] [address] Platelet mean volume (Bld) [Entitic vol] 9.8 fL Normal 9.0-12.7 [facility] Comment on above: Order Comment: Speci men Type: BLOOD SPECIMENOrdering Facility: [facility] Address: [address] [address] Performed By: #### 5 8410-2 ####[facility] LABORATORYCLIA [id number] [address] Platelets (Bld) [#/Vol] 241 10*3/uL Normal 150-400 [facility] Comment on above: Order Comment: Speci men Type: BLOOD SPECIMENOrdering Facility: [facility] Address: [address] [address] Performed By: #### 5 8410-2 ####[facility] LABORATORYCLIA [id number] [address] OF [facility] RBC (Bld) [#/Vol] 2.88 10*6/uL Low 3.90-5.20 [facility] Comment on above: Order Comment: Speci men Type: BLOOD SPECIMENOrdering Facility: [facility] Address: [address] [address] Performed By: #### 5 8410-2 ####[facility] LABORATORYCLIA [id number] [address] WBC (Bld) [#/Vol] 6.37 10*3/uL Normal 3.70-11.00 [facility] Comment on above: Order Comment: Speci men Type: BLOOD SPECIMENOrdering Facility: [facility] Address: [address] [place] [address] Performed By: #### 5 8410-2 ####[facility] LABORATORYCLIA [id number] [address] NT-proBNP [facility] 06-24 Natriuretic peptide.B prohormone N-Terminal [Mass/Vol] 2971 pg/mL High <450 [facility] Comment on above: Order Comment: Speci men Type: BLOOD SPECIMENOrdering Facility: [facility] Address: [address] [place] [address] Performed By: #### 2 4321-2, 64912-2 ####[facility] LABORATORYCLIA [id number] [address] aPTT PPPon 06-24-2022 aPTT Coag (PPP) [Time] 64.2 s High 23.0-32.4 [facility] Comment on above: Order Comment: Speci men Type: BLOOD SPECIMEN [facility] Address: [address] [place] [address] Performed By: #### T SCR #### [facility] CLIA [id number] [address] aPTT Coag (PPP) [Time] 45.8 s High 23.0-32.4 [facility] Comment on above: Order Comment: Speci men Type: BLOOD SPECIMENOrdering Facility: [facility] Address: [address] [place] [address] Performed By: #### 3 2355-0 #### [facility] CLIA [id number] [address] aPTT Coag (PPP) [Time] 116.8 s High 28.5-34.0 [facility] Comment on above: Order Comment: Speci men Type: BLOOD SPECIMENOrdering Facility: [facility] Address: [address] [place] [address] Performed By: #### 1 4979-9 ####[facility] LABORATORYCLIA [id number] [address] ALLIED HEALTHon 06-23-2022 ALLIED HEALTH HNO ID: [id number] Author: RT Rhina(R) Service: Radiology Author Type: [...] IV DATA: Not applicable SIGNED BY: RT Lali(R) June 23, 2022 9:[address] [facility] CBC panel Auto (Bld)on 06-23 Erythrocyte distribution width (RBC) [Ratio] 16.6 % High 11.5-15.0 [facility] Comment on above: Order Comment: Rhina mason Type: BLOOD SPECIMENOrdering Facility: [facility] Address: [address] [place] [address] Performed By: #### 5 8410-2 ####[facility] LABORATORYCLIA [id number] [address] OF [facility] Hematocrit (Bld) [Volume fraction] 29.6 % Low 36.0-46.0 [facility] Comment on above: Order Comment: Rhina mason Type: BLOOD SPECIMENOrdering Facility: [facility] Address: [address] [place] [address] Performed By: #### 5 8410-2 ####[facility] LABORATORYCLIA [id number] [address] [place] Hemoglobin (Bld) [Mass/Vol] 9.5 g/dL Low 11.5-15.5 [facility] Comment on above: Order Comment: Speci men Type: BLOOD SPECIMENOrdering Facility: [facility] Address: [address] [place] [address] Performed By: #### 5 8410-2 ####[facility] LABORATORYCLIA [id number] [address] [place] MCH (RBC) [Entitic mass] 30.4 pg Normal 26.0-34.0 [facility] Comment on above: Order Comment: Speci men Type: BLOOD SPECIMENOrdering Facility: [facility] Address: [address] [address] Performed By: #### 5 8410-2 ####[facility] LABORATORYCLIA [id number] [address] MCHC (RBC) [Mass/Vol] 32.1 g/dL Normal 30.5-36.0 [facility] Comment on above: Order Comment: Speci men Type: BLOOD SPECIMENOrdering Facility: [facility] Address: [address] [place] [address] Performed By: #### 5 8410-2 ####[facility] LABORATORYCLIA [id number] [address] MCV (RBC) [Entitic vol] 94.6 fL Normal 80.0-100.0 [facility] Comment on above: Order Comment: Speci men Type: BLOOD SPECIMENOrdering Facility: [facility] Address: [address] [place] [address] Performed By: #### 5 8410-2 ####[facility] LABORATORYCLIA [id number] [address] Nucleated RBC (Bld) [#/Vol] 0.07 10*3/uL High <0.01 [facility] Comment on above: Order Comment: Speci men Type: BLOOD SPECIMENOrdering Facility: [facility] Address: [address] [place] [address] Performed By: #### 5 8410-2 ####[facility] LABORATORYCLIA [id number] [address] Platelet mean volume (Bld) [Entitic vol] 9.9 fL Normal 9.0-12.7 [facility] Comment on above: Order Comment: Speci men Type: BLOOD SPECIMENOrdering Facility: [facility] Address: [address] [place] [address] Performed By: #### 5 8410-2 ####[facility] LABORATORYCLIA [id number] [address] Platelets (Bld) [#/Vol] 241 10*3/uL Normal 150-400 [facility] Comment on above: Order Comment: Speci men Type: BLOOD SPECIMENOrdering Facility: [facility] Address: [address] [address] Performed By: #### 5 8410-2 ####[facility] LABORATORYCLIA [id number] [address] OF [facility] RBC (Bld) [#/Vol] 3.13 10*6/uL Low 3.90-5.20 [facility] Comment on above: Order Comment: Speci men Type: BLOOD SPECIMENOrdering Facility: [facility] Address: [address] [place] [address] Performed By: #### 5 8410-2 ####[facility] LABORATORYCLIA [id number] [address] OF [facility] WBC (Bld) [#/Vol] 6.86 10*3/uL Normal 3.70-11.00 [facility] Comment on above: Order Comment: Speci men Type: BLOOD SPECIMENOrdering Facility: [facility] Address: [address] [place] [address] Performed By: #### 5 8410-2 ####[facility] LABORATORYCLIA [id number] [address] OF [facility] NUTRITIONon 06-23-2022 NUTRITION HNO ID: [id number] Author: Parul Mcallister RD Service: Nutrition Therapy Author Type: Registered Dietitian Type: Nutrition Filed: 06/23/2022 2:28 PM Note Text: NUTRITION THERAPY INITIAL ASSESSMENT SERVICE DATE: 06/23/2022 SERVICE TIME: 11:09 AM Nutrition Assessment: Recommended Malnutrition Diagnosis: No Malnutrition Identified Nutrition Diagnosis: Problem: Suboptimal protein/energy intake Related to: Inability to consume sufficient nutrients As evidenced by: Patient/family self-report;Intake records Estimated kilocalorie needs: 4613-8349 Calorie Calculation Method: 25-30 kcals/kg Estimated protein [...] June 23, 2022 TIME: 11:[address] [facility] XR CHEST 2V FRONTAL/LATon XR [...] sites of pneumonia. Small bilateral pleural effusions. Dynamite Reclaimer: DEVEN Transcribe Date/Time: Jun 24 2022 6:34A Dictated by : DI MINER MD This examination was interpreted and the report reviewed and electronically signed by: DI MINER MD on Jun 24 2022 6:36AM EST [id number] Normal [facility] aPTT PPPon 06-23-2022 aPTT Coag (PPP) [Time] 46.7 s High 23.0-32.4 [facility] Comment on above: Order Comment: Speci men Type: BLOOD SPECIMENOrdering Facility: [facility] Address: [address] [place] [address] Performed By: #### 1 4979-9 ####[facility] LABORATORYCLIA [id number] [address] OF [facility] aPTT Coag (PPP) [Time] 53.8 s High 23.0-32.4 [facility] Comment on above: Order Comment: Speci men Type: BLOOD SPECIMENOrdering Facility: [facility] Address: [address] [place] [address] Performed By: #### 1 4979-9 ####[facility] LABORATORYCLIA [id number] [address] aPTT Coag (PPP) [Time] 114.5 s High 23.0-32.4 [facility] Comment on above: Order Comment: Speci men Type: BLOOD SPECIMEN [facility] Address: [address] [address] Performed By: #### T SCR #### [facility] CLIA [id number] [place] [facility] CBC W Auto Differential pane l (Bld)on 06-22-2022 Basophils (Bld) [#/Vol] 0.03 10*3/uL Normal <0.11 [facility] Comment on above: Order Comment: Speci men Type: BLOOD SPECIMENOrdering Facility: [facility] Address: [address] [place] [address] Result Comment: Diff erential confirmed by visual scan of peripheral blood smear slide Performed By: #### 5 7021-8 ####[facility] LABORATORYCLIA [id number] [address] [place] [facility] Basophils/100 WBC (Bld) 0.5 % Normal A [facility] Comment on above: Order Comment: Speci men Type: BLOOD SPECIMENOrdering Facility: [facility] Address: [address] [address] Performed By: #### 5 7021-8 ####[facility] LABORATORYCLIA [id number] [address] Differential cell count method Nom (Bld) Auto Normal [facility] Comment on above: Order Comment: Speci men Type: BLOOD SPECIMENOrdering Facility: [facility] Address: [address] [address] Performed By: #### 5 7021-8 ####[facility] LABORATORYCLIA [id number] [place] [address] [place] Eosinophils (Bld) [#/Vol] 10*3/uL Normal <0.46 [facility] Comment on above: Order Comment: Speci men Type: BLOOD SPECIMENOrdering Facility: [facility] Address: [address] [address] Performed By: #### 5 7021-8 ####[facility] LABORATORYCLIA [id number] [address] [place] Eosinophils/100 WBC (Bld) 0.0 % Normal [facility] Comment on above: Order Comment: Speci men Type: BLOOD SPECIMENOrdering Facility: [facility] Address: [address] [place] [address] Performed By: #### 5 7021-8 ####[facility] LABORATORYCLIA [id number] [address] [place] Erythrocyte distribution width (RBC) [Ratio] 16.2 % High 11.5-15.0 [facility] Comment on above: Order Comment: Speci men Type: BLOOD SPECIMENOrdering Facility: [facility] Address: [address] [place] [address] Performed By: #### 5 7021-8 ####[facility] LABORATORYCLIA [id number] [address] Hematocrit (Bld) [Volume fraction] 25.1 % Low 36.0-46.0 [facility] Comment on above: Order Comment: Speci men Type: BLOOD SPECIMENOrdering Facility: [facility] Address: [address] [place] [address] Performed By: #### 5 7021-8 ####[facility] LABORATORYCLIA [id number] [address] [place] Hemoglobin (Bld) [Mass/Vol] 8.4 g/dL Low 11.5-15.5 [facility] Comment on above: Order Comment: Speci men Type: BLOOD SPECIMENOrdering Facility: [facility] Address: [address] [place] [address] Performed By: #### 5 7021-8 ####[facility] LABORATORYCLIA [id number] [address] Immature granulocytes (Bld) [#/Vol] 0.60 10*3/uL High <0.10 [facility] Comment on above: Order Comment: Speci men Type: BLOOD SPECIMENOrdering Facility: [facility] Address: [address] [address] Performed By: #### 5 7021-8 ####[facility] LABORATORYCLIA [id number] [address] Immature granulocytes/100 WBC (Bld) 10.3 % Normal [facility] Comment on above: Order Comment: Speci men Type: BLOOD SPECIMENOrdering Facility: [facility] Address: [address] [place] [address] Performed By: #### 5 7021-8 ####[facility] LABORATORYCLIA [id number] [address] OF [facility] Lymphocytes (Bld) [#/Vol] 1.38 10*3/uL Normal 1.00-4.00 [facility] Comment on above: Order Comment: Speci men Type: BLOOD SPECIMENOrdering Facility: [facility] Address: [address] [place] [address] Performed By: #### 5 7021-8 ####[facility] LABORATORYCLIA [id number] [address] Lymphocytes/100 WBC (Bld) 23.7 % Normal [facility] Comment on above: Order Comment: Speci men Type: BLOOD SPECIMENOrdering Facility: [facility] Address: [address] [place] [address] Performed By: #### 5 7021-8 ####[facility] LABORATORYCLIA [id number] [address] [place] [facility] MCH (RBC) [Entitic mass] 31.2 pg Normal 26.0-34.0 [facility] Comment on above: Order Comment: Speci men Type: BLOOD SPECIMENOrdering Facility: [facility] Address: [address] [place] [address] Performed By: #### 5 7021-8 ####[facility] LABORATORYCLIA [id number] [address] MCHC (RBC) [Mass/Vol] 33.5 g/dL Normal 30.5-36.0 [facility] Comment on above: Order Comment: Speci men Type: BLOOD SPECIMENOrdering Facility: [facility] Address: [address] [place] [address] Performed By: #### 5 7021-8 ####[facility] LABORATORYCLIA [id number] [address] [place] MCV (RBC) [Entitic vol] 93.3 fL Normal 80.0-100.0 A [facility] Comment on above: Order Comment: Speci men Type: BLOOD SPECIMENOrdering Facility: [facility] Address: [address] [place] [address] Performed By: #### 5 7021-8 ####[facility] LABORATORYCLIA [id number] [address] [place] Monocytes (Bld) [#/Vol] 0.50 10*3/uL Normal <0.87 [facility] Comment on above: Order Comment: Speci men Type: BLOOD SPECIMENOrdering Facility: [facility] Address: [address] [place] [address] Performed By: #### 5 7021-8 ####[facility] LABORATORYCLIA [id number] [address] [place] Monocytes/100 WBC (Bld) 8.6 % Normal A [facility] Comment on above: Order Comment: Speci men Type: BLOOD SPECIMENOrdering Facility: [facility] Address: [address] [address] Performed By: #### 5 7021-8 ####[facility] LABORATORYCLIA [id number] [address] [place] Neutrophils (Bld) [#/Vol] 3.31 10*3/uL Normal 1.45-7.50 [facility] Comment on above: Order Comment: Speci men Type: BLOOD SPECIMENOrdering Facility: [facility] Address: [address] [place] [address] Performed By: #### 5 7021-8 ####[facility] LABORATORYCLIA [id number] [address] [place] Neutrophils/100 WBC (Bld) 56.9 % Normal [facility] Comment on above: Order Comment: Speci men Type: BLOOD SPECIMENOrdering Facility: [facility] Address: [address] [place] [address] Performed By: #### 5 7021-8 ####[facility] LABORATORYCLIA [id number] [place] [address] [place] Nucleated RBC (Bld) [#/Vol] 0.10 10*3/uL High <0.01 [facility] Comment on above: Order Comment: Speci men Type: BLOOD SPECIMENOrdering Facility: [facility] Address: [address] [place] [address] Performed By: #### 5 7021-8 ####[facility] LABORATORYCLIA [id number] [address] [place] Nucleated RBC/100 WBC (Bld) [Ratio] 1.7 /[address] [facility] Comment on above: Order Comment: Speci men Type: BLOOD SPECIMENOrdering Facility: [facility] Address: [address] [place] [address] Performed By: #### 5 7021-8 ####[facility] LABORATORYCLIA [id number] [place] [address] [place] Platelet mean volume (Bld) [Entitic vol] 9.7 fL Normal 9.0-12.7 [facility] Comment on above: Order Comment: Speci men Type: BLOOD SPECIMENOrdering Facility: [facility] Address: [address] [place] [address] Performed By: #### 5 7021-8 ####[facility] LABORATORYCLIA [id number] [address] [place] Platelets (Bld) [#/Vol] 209 10*3/uL Normal 150-400 [facility] Comment on above: Order Comment: Speci men Type: BLOOD SPECIMENOrdering Facility: [facility] Address: [address] [place], [place] [id number] Performed By: #### 5 7021-8 ####[facility] LABORATORYCLIA [id number] [address] RBC (Bld) [#/Vol] 2.69 10*6/uL Low 3.90-5.20 [facility] Comment on above: Order Comment: Speci men Type: BLOOD SPECIMENOrdering Facility: [facility] Address: [address] [address] Performed By: #### 5 7021-8 ####[facility] LABORATORYCLIA [id number] [address] WBC (Bld) [#/Vol] 5.82 10*3/uL Normal 3.70-11.00 [facility] Comment on above: Order Comment: Speci men Type: BLOOD SPECIMENOrdering Facility: [facility] Address: [address] [place] [address] Performed By: #### 5 7021-8 ####[facility] LABORATORYCLIA [id number] [address] CONSULT PROGon 06-22-2022 CONSULT PROG HNO ID: [id number] Author: Eliza Martin APRN.MANAGER [employer] Service: Gastroenterology Author Type: Nurse Specialist Type: [...] stool softene (more content not included)... Normal [facility] Comprehensive metabolic 2000 panelon 06-22-2022 Albumin [Mass/Vol] 2.4 g/dL Low 3.9-4.9 [facility] Comment on above: Order Comment: Speci men Type: BLOOD SPECIMENOrdering Facility: [facility] Address: [address] [address] Performed By: #### 2 432-8 ####[facility] LABORATORYCLIA [id number] [place] [address] [place] ALP [Catalytic activity/Vol] 129 U/L High 34-123 [facility] Comment on above: Order Comment: Speci men Type: BLOOD SPECIMENOrdering Facility: [facility] Address: [address] [address] Performed By: #### 2 4323-8 ####[facility] LABORATORYCLIA [id number] [place] [address] [place] ALT With P-5'-P [Catalytic activity/Vol] 21 U/L Normal 7-38 [facility] Comment on above: Order Comment: Speci men Type: BLOOD SPECIMENOrdering Facility: [facility] Address: [address] [address] Performed By: #### 2 432-8 ####[facility] LABORATORYCLIA [id number] [address] [place] Anion gap [Moles/Vol] 10 mmol/L Normal 9-18 [facility] Comment on above: Order Comment: Speci men Type: BLOOD SPECIMENOrdering Facility: [facility] Address: [address] [address] Performed By: #### 2 4323-8 ####[facility] LABORATORYCLIA [id number] [address] [place] AST With P-5'-P [Catalytic activity/Vol] 19 U/L Normal 13-35 [facility] Comment on above: Order Comment: Speci men Type: BLOOD SPECIMENOrdering Facility: [facility] Address: [address] [place] [address] Performed By: #### 2 4323-8 ####[facility] LABORATORYCLIA [id number] [address] [place] Bilirubin [Mass/Vol] 0.6 mg/dL Normal 0.2-1.3 [facility] Comment on above: Order Comment: Speci men Type: BLOOD SPECIMENOrdering Facility: [facility] Address: [address] [place] [address] Performed By: #### 2 4323-8 ####[facility] LABORATORYCLIA [id number] [place] [address] [place] Calcium [Mass/Vol] 8.6 mg/dL Normal 8.5-10.2 [facility] Comment on above: Order Comment: Speci men Type: BLOOD SPECIMENOrdering Facility: [facility] Address: [address] [place] [address] Performed By: #### 2 4323-8 ####[facility] LABORATORYCLIA [id number] [place] [address] [place] Chloride [Moles/Vol] 105 mmol/L Normal 97-105 [facility] Comment on above: Order Comment: Speci men Type: BLOOD SPECIMENOrdering Facility: [facility] Address: [address] [place] [address] Performed By: #### 2 4323-8 ####[facility] LABORATORYCLIA [id number] [place] [address] [place] CO2 [Moles/Vol] 21 mmol/L Low 22-30 [facility] Comment on above: Order Comment: Speci men Type: BLOOD SPECIMENOrdering Facility: [facility] Address: [address] [place] [address] Performed By: #### 2 4323-8 ####[facility] LABORATORYCLIA [id number] [address] STATES OF [facility] Creatinine [Mass/Vol] 0.88 mg/dL Normal 0.58-0.96 [facility] Comment on above: Order Comment: Rhina isabella Type: BLOOD SPECIMENOrdering Facility: [facility] Address: [address] [place] [address] Performed By: #### 2 4323-8 ####[facility] LABORATORYCLIA [id number] [address] ESTIMATED GLOMERULAR FILTRATION RATE 66 mL/min/1.73m??? Normal >=60 [facility] Comment on above: Order Comment: Rhina mason Type: BLOOD SPECIMENOrdering Facility: [facility] Address: [address] [place] [address] Result Comment: Isa mated Glomerular Filtration Rate [...] actual GFR. Performed By: #### 2 4323-8 ####[facility] LABORATORYCLIA [id number] [address] OF [facility] Glucose [Mass/Vol] 95 mg/dL Normal 74-99 [facility] Comment on above: Order Comment: Rhina isabella Type: BLOOD SPECIMENOrdering Facility: [facility] Address: [address] [place] [address] Result Comment: The [place] [employer] (ADA) provides guidance for cutoff [...] Standards of Medical Care in Diabetes 2016, [place] [employer]. Diabetes Care. 2016.39(Suppl 1). Performed By: #### 2 4323-8 ####[facility] LABORATORYCLIA [id number] [address] [place] Potassium [Moles/Vol] 4.7 mmol/L Normal 3.7-5.1 [facility] Comment on above: Order Comment: Speci men Type: BLOOD SPECIMENOrdering Facility: [facility] Address: [address] [place] [address] Performed By: #### 2 4323-8 ####[facility] LABORATORYCLIA [id number] [address] [place] Protein [Mass/Vol] 5.3 g/dL Low 6.3-8.0 [facility] Comment on above: Order Comment: Speci men Type: BLOOD SPECIMENOrdering Facility: [facility] Address: [address] [place] [address] Performed By: #### 2 4323-8 ####[facility] LABORATORYCLIA [id number] [address] [place] [facility] Sodium [Moles/Vol] 136 mmol/L Normal 136-144 [facility] Comment on above: Order Comment: Speci men Type: BLOOD SPECIMENOrdering Facility: [facility] Address: [address] [place] [address] Performed By: #### 2 4323-8 ####[facility] LABORATORYCLIA [id number] [address] [place] Urea nitrogen [Mass/Vol] 7 mg/dL Normal 7-21 [facility] Comment on above: Order Comment: Speci men Type: BLOOD SPECIMENOrdering Facility: [facility] Address: [address] [address] Performed By: #### 2 4323-8 ####[facility] LABORATORYCLIA [id number] [address] STATES OF [facility] H. pylori IgG IA Qlon 2021 H. PYLORI IGG, QUAL Negative Normal Negative [facility] Comment on above: Order Comment: Rhina mason Type: BLOOD SPECIMENOrdering Facility: [facility] Address: [address] [place] [address] Result Comment: Shakeel ot exclude H. pylori infection if the specimen collected 3-4 weeks after onset of symptoms. Performed By: #### 1 7859-0 ####[facility] LABCLIA [id number] [facility] [id number] PT panel Coag (PPP)on 2021 INR Coag (PPP) [Relative time] {INR} Low 0.9-1.3 [facility] Comment on above: Order Comment: Rhina mason Type: BLOOD SPECIMEN [facility] Address: [address] [place] [address] Result Comment: Mayra min K Antagonist (VKA) Therapeutic Range: INR 2 to 3 (Target INR of 2.5) Note: For patients treated with VKA drugs, such as warfarin, the [place] [employer] 2012 Guideline recommends [...] Chest 2012, 141:7S-47S Daren RA, et al. [facility] 2017, 70: 252-289 Performed By: #### T SCR #### [facility] CLIA [id number] [address] OF [facility] PT Coag (PPP) [Time] 9.9 s Normal 9.7-13.0 [facility] Comment on above: Order Comment: Speci men Type: BLOOD SPECIMEN [facility] Address: [place] [address] Performed By: #### T SCR #### [facility] CLIA [id number] 1 [place] [address] [place] THERAPY NTon 06-22-2022 THERAPY NT HNO ID: [id number] Author: Shannan Segovia, OTR/L Service: Occupational Therapy Author Type: Occupational Therapist Type: Therapy (PT/OT/Speech/Resp) Filed: 06/22/2022 11:27 AM Note Text: Occupational Therapy Evaluation SERVICE DATE: 06/22/2022 SERVICE TIME: 1037 to 1105 ROOM: [place] [address] Recommended Discharge Disposition: Subacute/SNF Recommended Discharge Disposition [...] time Occupational Factors 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 Normal [facility] US ARTERIAL PVR LOWERon 12-0 US ARTERIAL PVR LOWER * * *Final Report* * * DATE OF EXAM: Jun 22 2022 7:43AM A2U 1107 - US ARTERIAL PVR LOWER / PROCEDURE REASON: Arterial embolism * * * * Physician Interpretation * * * * Non-Invasive Vascular Laboratory [facility] Lower Extremity Arterial Physiology Study [...] all veins 06/16/22. Dopplers study was done. BLASTING CONTRACT MAN - Biphasic FOUNTAIN ATTENDANT - Multiphasic - possible stenosis DP - Monophasic [place] - Biphasic. Technologist: Azar Holcomb Gosia Ordering physician: DWAYNE ZAIDI Interpreting physician: Supriya Ponce MD Final (Updated) RP Dynamite Reclaimer: IRENE Transcribe Date/Time: Jun 22 2022 7:12A Dictated by : SUPRIYA PONCE MD This examination was interpreted and the report reviewed and electronically signed by: SUPRIYA PONCE MD on Jun 24 2022 1:27PM EST [id number] Normal [facility] aPTT PPPon 06-22-2022 aPTT Coag (PPP) [Time] 43.0 s High 23.0-32.4 [facility] Comment on above: Order Comment: Speci men Type: BLOOD SPECIMENOrdering Facility: [facility] Address: [address] [place] [address] Performed By: #### 1 4979-9 ####[facility] LABORATORYCLIA [id number] [address] OF [facility] aPTT Coag (PPP) [Time] 25.6 s Normal 23.0-32.4 [facility] Comment on above: Order Comment: Speci men Type: BLOOD SPECIMEN [facility] Address: [address] [place] [address] Performed By: #### T SCR #### [facility] CLIA [id number] [address] OF [facility] ANES POSTPROC EVALon 022 ANES POSTPROC EVAL HNO ID: [id number] Author: Olu Vasquez MD Service: Anesthesiology Author Type: Physician Type: Anesthesia Postprocedure Evaluation Filed: 06/21/2022 3:20 PM Note Text: POST ANESTHESIA EVALUATION NOTE : 1940 Procedure Summary Date: 06/21/22 Room / [facility] Anesthesia Start: 1134 Anesthesia Stop: 1158 Procedure: [...] June 21, 2022 TIME: 3:19 PM CSN: [id number] [facility] ANES PRE-OPon 06-21-2022 ANES PRE-OP HNO ID: [id number] Author: Olu Vasquez MD Service: Anesthesiology Author Type: Physician Type: Anesthesia Preprocedure Evaluation Filed: 06/21/2022 11:32 AM Note Text: ANESTHESIOLOGY DAY OF SURGERY NOTE : 1940 Procedure Information Date/Time: 06/21/22 1130 Scheduled providers: Sim Elizabeth MD Procedure: EGD DIAGNOSTIC Location: [facility] Estimated body mass index is 26.94 kg/m? [...] COPD (chronic obstructive pulmonary disease) ([facility]) I - PHYSICAL EVALUATION AIRWAY Patient [...] and consent discussed: yes. Patient / Responsible Democrat agrees to proceed: yes Patient / Surrogate [...] Olu Dietrich (more content not included)... Normal [facility] CONSULT PROGon 06-21-2022 CONSULT PROG HNO ID: [id number] Author: Fidel Carmen APRN.BUSINESS EMPLOYMENT SPECIALIST Service: Wound/Ostomy Author Type: Nurse Practitioner Type: Consult Progress Note Filed: 06/21/2022 1:41 PM Note Text: WOUND CARE SERVICE CONSULT RRT NOTE SERVICE DATE: 06/21/2022 SERVICE TIME: 941 TIME SPENT (minutes): 30 REASON FOR CONSULT: MAD buttocks, atypical wound Right middle finger. CHIEF COMPLAINT: Right middle finger Subjective HISTORY OF PRESENT ILLNESS: Ms. Jose Alberto Castillo is a 81 year old female who is seen today with Delia Bruno, Wound/director payment, and presented to hospital with complaints of [...] 06/21/2022 9:57 AM Wound Image Site Assessment Rosita;Red (small open area noted) Allie-Wound Assessment Rosita;Intact Drainage Amount None Odor None Treatments Cleansed;Protective Barrier Ointment Dressing Foam- Adhesive Dressing Changed Changed Dressing Status Clean;Dry;Intact Active Orders Date Order Priority Status Authorizing Provider 06/21/22 1248 DRESSING CARE (SPECIFY) ([place]) Routine Active Fidel Carmen APRN.BUSINESS EMPLOYMENT SPECIALIST - Specify:: Apply allevyn foam to coccyx, peel down every shift to assess skin and to apply zinc oxide, change every 3 days or if soiled. 06/21/22 1248 zinc oxide 20 % Active Fidel Carmen APRN.BUSINESS EMPLOYMENT SPECIALIST Wound 06/21/22 0948 Atypical Wound Finger (Comment which one) Right (Active) Assessments 06/21/2022 9:48 AM Wound Image Site Assessment Rosita;White (shiney) Allie-Wound Assessment Intact Shape irregular Drainage Description Sanguineous (intermittent, per pt.) Drainage Amount None Odor None Treatments Cleansed Dressing Xeroform;Gauze Dr (more content not included)... Normal [facility] Hgb Bld-mCncon 06-21-2022 Hemoglobin (Bld) [Mass/Vol] 6.9 g/dL Low 11.5-15.5 [facility] Comment on above: Order Comment: Speci men Type: BLOOD SPECIMENOrdering Facility: [facility] Address: [address] [place], [place] [address] Performed By: #### 3 2355-0 #### [facility] CLIA [id number] [address] [place], [place] [id number] [place] OPERATIVE NOon 06-21-2022 OPERATIVE NO HNO ID: [id number] Author: Sim Elizabeth MD Service: Gastroenterology Author Type: Physician Type: Operative Report Filed: 06/21/2022 12:01 PM Note Text: OPERATIVE/PROCEDURE REPORT LOG ID: [id number] Surgery/Procedure Date: 06/21/2022 Incision/Procedure Start Time: 11:44 AM Incision Close/Procedure End Time: 11:49 AM Surgeon(s)/Proceduralis t(s) and Forklift Supervisor(s): Surgeon(s) and Role: * Sim Elizabeth MD [...] SIGNATURE: Sim Elizabeth MD PATIENT NAME: Mel Csatillo DATE: June 21, 2022 TIME: 11:53 AM PAGER/CONTACT #: [phone] Normal [facility] THERAPY NTon 06-21-2022 THERAPY NT HNO ID: [id number] Author: Miranda Burroughs PT Service: Physical Therapy Author Type: Physical Therapist Type: Therapy (PT/OT/Speech/Resp) Filed: 06/21/2022 10:12 AM Note Text: Physical Therapy Evaluation SERVICE DATE: 06/21/2022 SERVICE TIME: 0832 to 0855 ROOM: [place] [address] Recommended Discharge Disposition: Subacute/SNF Recommended Discharge Disposition [...] Available: PRN (someone can drive her to [place]; someone drops off food as they are [...] while, someone has to take her to [employer], ambulates without AD, takes care of home [...] gait and mobility-other Interventions Provided: Evaluation;Therapeutic Activity (79947) $ Evaluation-Moderate (46239) Billed Units: 1 unit Therapeutic Activity (81712) Treatment Minutes: 8 $ Therapeutic Activity (12562) Billed Units: 1 unit Educated pt on [...] therapeutic skills (more content not included)... Normal [facility] TYPE + SCREENon 06-21-[address] [facility] Comment on above: Order Comment: Speci men Type: BLOOD SPECIMEN [facility] Address: [address] [place] [phone] Performed By: #### T SCR #### [facility] CLIA [id number] [address] HISTORICAL AB SCR STATUS Negative Normal [facility] Comment on above: Order Comment: Speci men Type: BLOOD SPECIMEN [facility] Address: [address] [place] [address] Performed By: #### T SCR #### [facility] CLIA [id number] [address] Rh Nom (Bld) Positive Normal [facility] Comment on above: Order Comment: Speci men Type: BLOOD SPECIMEN [facility] Address: [address] [place] [address] Performed By: #### T SCR #### [facility] CLIA [id number] [address] TYPE AND SCREEN EXPIRATION 06/24/2022 23:[address] [facility] Comment on above: Order Comment: Speci men Type: BLOOD SPECIMEN [facility] Address: [address] [place] [address] Performed By: #### T SCR #### [facility] CLIA [id number] [address] ALLIED HEALTHon 06-20-2022 ALLIED HEALTH HNO ID: [id number] Author: RT Tamica(Tiffanie) Service: Radiology Author Type: Technologist Type: Allied [...] PERIPHERAL IV DATA: Inpatient - refer to [facility] documentation RADIOLOGY DEPARTMENT: CT; Exam(s) Completed: Abdomen/Pelvis SIGNATURE: RT Tamica(R) PATIENT NAME: Mel Castillo DATE: June 20, 2022 TIME: 3:[address] [facility] Basic metabolic 2000 panelon 06-20-2022 Anion gap [Moles/Vol] 8 mmol/L Low 9-18 [facility] Comment on above: Order Comment: Speci men Type: BLOOD SPECIMENOrdering Facility: [facility] Address: [address] [place] [address] Performed By: #### 2 4321-2 ####[facility] LABORATORYCLIA [id number] [place] [address] [place] Calcium [Mass/Vol] 8.5 mg/dL Normal 8.5-10.2 [facility] Comment on above: Order Comment: Speci men Type: BLOOD SPECIMENOrdering Facility: [facility] Address: [address] [place] [address] Performed By: #### 2 4321-2 ####[facility] LABORATORYCLIA [id number] [address] STATES OF [facility] Chloride [Moles/Vol] 106 mmol/L High 97-105 [facility] Comment on above: Order Comment: Speci men Type: BLOOD SPECIMENOrdering Facility: [facility] Address: [address] [place] [address] Performed By: #### 2 4321-2 ####[facility] LABORATORYCLIA [id number] [address] [place] CO2 [Moles/Vol] 22 mmol/L Normal 22-30 [facility] Comment on above: Order Comment: Speci men Type: BLOOD SPECIMENOrdering Facility: [facility] Address: [address] [place] [address] Performed By: #### 2 4321-2 ####[facility] [id number] [address] OF [facility] Creatinine [Mass/Vol] 0.84 mg/dL Normal 0.58-0.96 [facility] Comment on above: Order Comment: Speci men Type: BLOOD SPECIMENOrdering Facility: [facility] Address: [address] [place] [address] Performed By: #### 2 4321-2 ####[facility] LABORATORYCLIA [id number] [address] ESTIMATED GLOMERULAR FILTRATION RATE 69 mL/min/1.73m??? Normal >=60 [facility] Comment on above: Order Comment: Speci men Type: BLOOD SPECIMENOrdering Facility: [facility] Address: [address] [place] [address] Result Comment: Isa mated Glomerular Filtration Rate [...] actual GFR. Performed By: #### 2 4321-2 ####[facility] LABORATORYCLIA [id number] [place] [address] [place] Glucose [Mass/Vol] 92 mg/dL Normal 74-99 [facility] Comment on above: Order Comment: Speci men Type: BLOOD SPECIMENOrdering Facility: [facility] Address: [address] [place] [address] Result Comment: The [place] [employer] (ADA) provides guidance for cutoff [...] Standards of Medical Care in Diabetes 2016, [place] [employer]. Diabetes Care. 2016.39(Suppl 1). Performed By: #### 2 4321-2 ####[facility] LABORATORYCLIA [id number] [place] [address] [place] Potassium [Moles/Vol] 4.7 mmol/L Normal 3.7-5.1 [facility] Comment on above: Order Comment: Rhina isabella Type: BLOOD SPECIMENOrdering Facility: [facility] Address: [address] [place] [address] Performed By: #### 2 4321-2 ####[facility] LABORATORYCLIA [id number] [place] [address] [place] Sodium [Moles/Vol] 136 mmol/L Normal 136-144 [facility] Comment on above: Order Comment: Speci men Type: BLOOD SPECIMENOrdering Facility: [facility] Address: [address] [place] [address] Performed By: #### 2 4321-2 ####[facility] LABORATORYCLIA [id number] [place] [address] [place] Urea nitrogen [Mass/Vol] 16 mg/dL Normal 7-21 [facility] Comment on above: Order Comment: Speci men Type: BLOOD SPECIMENOrdering Facility: [facility] Address: [address] [address] Performed By: #### 2 4321-2 ####[facility] LABORATORYCLIA [id number] [address] CBC panel Auto (Bld)on 06-20 Erythrocyte distribution width (RBC) [Ratio] 15.9 % High 11.5-15.0 [facility] Comment on above: Order Comment: Speci men Type: BLOOD SPECIMENOrdering Facility: [facility] Address: [address] [place] [address] Performed By: #### 3 2355-0 #### [facility] CLIA [id number] [address] OF [facility] Hematocrit (Bld) [Volume fraction] 23.9 % Low 36.0-46.0 [facility] Comment on above: Order Comment: Speci men Type: BLOOD SPECIMENOrdering Facility: [facility] Address: [address] [place] [address] Performed By: #### 3 2355-0 #### [facility] CLIA [id number] [address] Hemoglobin (Bld) [Mass/Vol] 7.8 g/dL Low 11.5-15.5 [facility] Comment on above: Order Comment: Speci men Type: BLOOD SPECIMENOrdering Facility: [facility] Address: [address] [place] [address] Performed By: #### 3 2355-0 #### [facility] CLIA [id number] [address] MCH (RBC) [Entitic mass] 30.7 pg Normal 26.0-34.0 [facility] Comment on above: Order Comment: Speci men Type: BLOOD SPECIMENOrdering Facility: [facility] Address: [address] [place] [address] Performed By: #### 3 2355-0 #### [facility] CLIA [id number] [address] MCHC (RBC) [Mass/Vol] 32.6 g/dL Normal 30.5-36.0 [facility] Comment on above: Order Comment: Speci men Type: BLOOD SPECIMENOrdering Facility: [facility] Address: [address] [place] [address] Performed By: #### 3 2355-0 #### [facility] CLIA [id number] [address] MCV (RBC) [Entitic vol] 94.1 fL Normal 80.0-100.0 [facility] Comment on above: Order Comment: Speci men Type: BLOOD SPECIMENOrdering Facility: [facility] Address: [address] [place] [address] Performed By: #### 3 2355-0 #### [facility] CLIA [id number] [address] Nucleated RBC (Bld) [#/Vol] 0.09 10*3/uL High <0.01 [facility] Comment on above: Order Comment: Speci men Type: BLOOD SPECIMENOrdering Facility: [facility] Address: [address] [place] [address] Performed By: #### 3 2355-0 #### [facility] CLIA [id number] [address] [place] Platelet mean volume (Bld) [Entitic vol] 9.8 fL Normal 9.0-12.7 [facility] Comment on above: Order Comment: Speci men Type: BLOOD SPECIMENOrdering Facility: [facility] Address: [address] [place] [address] Performed By: #### 3 2355-0 #### [facility] CLIA [id number] [address] [place] Platelets (Bld) [#/Vol] 233 10*3/uL Normal 150-400 [facility] Comment on above: Order Comment: Speci men Type: BLOOD SPECIMENOrdering Facility: [facility] Address: [address] [address] Performed By: #### 3 2355-0 #### [facility] CLIA [id number] [address] RBC (Bld) [#/Vol] 2.54 10*6/uL Low 3.90-5.20 [facility] Comment on above: Order Comment: Speci men Type: BLOOD SPECIMENOrdering Facility: [facility] Address: [address] [place] [address] Performed By: #### 3 2355-0 #### [facility] CLIA [id number] [address] WBC (Bld) [#/Vol] 9.90 10*3/uL Normal 3.70-11.00 [facility] Comment on above: Order Comment: Speci men Type: BLOOD SPECIMENOrdering Facility: [facility] Address: [address] [place] [address] Performed By: #### 3 2355-0 #### [facility] CLIA [id number] [address] CONSULTon 06-20-2022 CONSULT HNO ID: [id number] Author: Christine Edouard MD Service: ? Author [...] needed woul (more content not included)... Normal [facility] CT ABD/PEL W IVCONon 022 CT ABD/PEL W IVCON * * *Final Report* * * DATE OF EXAM: Jun 20 2022 2:57PM [facility] 0530 - CT ABD/PEL W [...] bilateral pleural effusions, larger on the right. Catering Convention Services Manager (topogram) images: No additional findings. IMPRESSION: [...] small cysts. Atherosclerotic arterial and aortic calcifications. Dynamite Reclaimer: PSCYoan Transcribe Date/Time: Jun 20 2022 3:18P Dictated by : DI MAYES MD This examination was interpreted and the report reviewed and electronically signed by: DI MAYES MD on Jun 20 2022 3:24PM EST [id number] Normal [facility] Hgb Bld-mCncon 06-20-2022 Hemoglobin (Bld) [Mass/Vol] 7.0 g/dL Low 11.5-15.5 [facility] Comment on above: Order Comment: Specrobson mason Type: BLOOD SPECIMEN [facility] Address: [address] [place] [address] Performed By: #### T SCR #### [facility] CLIA [id number] [address] ALLIED HEALTH 06-19-2022 ALLIED HEALTH HNO ID: [id number] Author: Parul Ryan RN Service: Infection Prevention Author Type: ? Type: Allied Health Filed: 06/19/2022 5:49 PM Note Text: INFECTION PREVENTION NOTE Admission Date: 06/16/2022 Patient meets ?COVID Resolved? criteria and isolation has been discontinued as per CDC guidance. SIGNATURE: Parul Ryan RN PATIENT NAME: Mel Castillo DATE: June 19, 2022 TIME: 5:49 PM PAGER/CONTACT #: Infection Prevention, [id number] Infection Prevention after hours/weekend pager: [phone] [facility] Basic metabolic 2000 panelon 06-19-2022 Anion gap [Moles/Vol] 5 mmol/L Low 9-18 [facility] Comment on above: Order Comment: Rhina mason Type: BLOOD SPECIMENOrdering Facility: [facility] Address: [address] [place] [address] Performed By: #### 3 2355-0 #### [facility] CLIA [id number] [address] [place] Calcium [Mass/Vol] 8.1 mg/dL Low 8.5-10.2 [facility] Comment on above: Order Comment: Speci men Type: BLOOD SPECIMENOrdering Facility: [facility] Address: [address] [place] [address] Performed By: #### 3 2355-0 #### [facility] CLIA [id number] [address] [place] Chloride [Moles/Vol] 105 mmol/L Normal 97-105 [facility] Comment on above: Order Comment: Speci men Type: BLOOD SPECIMENOrdering Facility: [facility] Address: [address] [place] [address] Performed By: #### 3 2355-0 #### [facility] CLIA [id number] [address] [place] CO2 [Moles/Vol] 23 mmol/L Normal 22-30 [facility] Comment on above: Order Comment: Speci men Type: BLOOD SPECIMENOrdering Facility: [facility] Address: [address] [place] [address] Performed By: #### 3 2355-0 #### [facility] CLIA [id number] [address] [place] Creatinine [Mass/Vol] 0.94 mg/dL Normal 0.58-0.96 [facility] Comment on above: Order Comment: Speci men Type: BLOOD SPECIMENOrdering Facility: [facility] Address: [address] [place] [address] Performed By: #### 3 2355-0 #### [facility] CLIA [id number] [address] [place] ESTIMATED GLOMERULAR FILTRATION RATE 61 mL/min/1.73m??? Normal >=60 [facility] Comment on above: Order Comment: Speci men Type: BLOOD SPECIMENOrdering Facility: [facility] Address: [address] [place], [place] [phone] Result Comment: Isa mated Glomerular Filtration Rate [...] GFR. Performed By: #### 3 2355-0 #### [facility] CLIA [id number] [address] [place] [address] [place] Glucose [Mass/Vol] 115 mg/dL High 74-99 [facility] Comment on above: Order Comment: Samirrobson isabella Type: BLOOD SPECIMENOrdering Facility: [facility] Address: [address] [place] [address] Result Comment: The [place] Diabetes [employer] (ADA) provides guidance for cutoff [...] Standards of Medical Care in Diabetes 2016, [place] [employer]. Diabetes Care. 2016.39(Suppl 1). Performed By: #### 3 2355-0 #### [facility] CLIA [id number] [address] [place] [address] [place] Potassium [Moles/Vol] 4.4 mmol/L Normal 3.7-5.1 [facility] Comment on above: Order Comment: Rhina mason Type: BLOOD SPECIMENOrdering Facility: [facility] Address: [address] [place], [place] [phone] Performed By: #### 3 2355-0 #### [facility] CLIA [id number] [address] STATES OF [place] Sodium [Moles/Vol] 133 mmol/L Low 136-144 [facility] Comment on above: Order Comment: Speci men Type: BLOOD SPECIMENOrdering Facility: [facility] Address: [address] [place] [address] Performed By: #### 3 2355-0 #### [facility] CLIA [id number] [address] [place] Urea nitrogen [Mass/Vol] 22 mg/dL High 7-21 [facility] Comment on above: Order Comment: Speci men Type: BLOOD SPECIMENOrdering Facility: [facility] Address: [address] [place] [address] Performed By: #### 3 2355-0 #### [facility] CLIA [id number] [address] [place] CBC panel Auto (Bld)on 06-19 Erythrocyte distribution width (RBC) [Ratio] 15.6 % High 11.5-15.0 [facility] Comment on above: Order Comment: Speci men Type: BLOOD SPECIMENOrdering Facility: [facility] Address: [address] [place] [address] Performed By: #### 5 8410-2 ####[facility]ATORYCLIA [id number] [address] [place] Hematocrit (Bld) [Volume fraction] 24.0 % Low 36.0-46.0 [facility] Comment on above: Order Comment: Speci men Type: BLOOD SPECIMENOrdering Facility: [facility] Address: [address] [place] [address] Performed By: #### 5 8410-2 ####[facility]ORYCLIA [id number] [address] [place] Hemoglobin (Bld) [Mass/Vol] 7.6 g/dL Low 11.5-15.5 [facility] Comment on above: Order Comment: Speci men Type: BLOOD SPECIMENOrdering Facility: [facility] Address: [address] [address] Performed By: #### 5 8410-2 ####[facility]ORYCLIA [id number] [address] MCH (RBC) [Entitic mass] 29.9 pg Normal 26.0-34.0 [facility] Comment on above: Order Comment: Speci men Type: BLOOD SPECIMENOrdering Facility: [facility] Address: [address] [place] [address] Performed By: #### 5 8410-2 ####[facility]ATORYCLIA [id number] [address] MCHC (RBC) [Mass/Vol] 31.7 g/dL Normal 30.5-36.0 [facility] Comment on above: Order Comment: Speci men Type: BLOOD SPECIMENOrdering Facility: [facility] Address: [address] [place] [address] Performed By: #### 5 8410-2 ####[facility]ATORYCLIA [id number] [address] MCV (RBC) [Entitic vol] 94.5 fL Normal 80.0-100.0 [facility] Comment on above: Order Comment: Speci men Type: BLOOD SPECIMENOrdering Facility: [facility] Address: [address] [place] [address] Performed By: #### 5 8410-2 ####[facility]ORYCLIA [id number] [address] Nucleated RBC (Bld) [#/Vol] 0.04 10*3/uL High <0.01 [facility] Comment on above: Order Comment: Speci men Type: BLOOD SPECIMENOrdering Facility: [facility] Address: [address] [place] [address] Performed By: #### 5 8410-2 ####[facility]ORYCLIA [id number] [address] Platelet mean volume (Bld) [Entitic vol] 10.0 fL Normal 9.0-12.7 [facility] Comment on above: Order Comment: Speci men Type: BLOOD SPECIMENOrdering Facility: [facility] Address: [address] [place] [address] Performed By: #### 5 8410-2 ####[facility]ATORYCLIA [id number] [place] [address] [place] Platelets (Bld) [#/Vol] 219 10*3/uL Normal 150-400 [facility] Comment on above: Order Comment: Speci men Type: BLOOD SPECIMENOrdering Facility: [facility] Address: [address] [place] [address] Performed By: #### 5 8410-2 ####[facility]ORYCLIA [id number] [place] [address] [place] RBC (Bld) [#/Vol] 2.54 10*6/uL Low 3.90-5.20 [facility] Comment on above: Order Comment: Speci men Type: BLOOD SPECIMENOrdering Facility: [facility] Address: [address] [place] [address] Performed By: #### 5 8410-2 ####[facility]ORYCLIA [id number] [address] [place] WBC (Bld) [#/Vol] 8.55 10*3/uL Normal 3.70-11.00 [facility] Comment on above: Order Comment: Speci men Type: BLOOD SPECIMENOrdering Facility: [facility] Address: [address] [place] [address] Performed By: #### 5 8410-2 ####[facility]ORYCLIA [id number] [address] [place] Hemoccult Stl Ql IAon 2021 Lower GI hemoglobin IA Ql (Stl) Positive Abnormal Negative [facility] Comment on above: Order Comment: Speci men Type: BLOOD SPECIMEN [facility] Address: [address] [place] [address] Performed By: #### T SCR #### [facility] CLIA [id number] [address] Hgb Bld-mCncon 06-19-2022 Hemoglobin (Bld) [Mass/Vol] 7.6 g/dL Low 11.5-15.5 [facility] Comment on above: Order Comment: Speci men Type: BLOOD SPECIMENOrdering Facility: [facility] Address: [address] [place] [address] Performed By: #### 7 18-7 ####[facility]ORYCLIA [id number] [address] Magnesium SerPl-ncon 06-19 Magnesium [Mass/Vol] 1.9 mg/dL Normal 1.7-2.3 [facility] Comment on above: Order Comment: Speci men Type: BLOOD SPECIMENOrdering Facility: [facility] Address: [address] [place] [address] Performed By: #### 3 2355-0 #### [facility] CLIA [id number] [address] OPERATIVE NOon 06-19-2022 OPERATIVE NO HNO ID: [id number] Author: Frida Rodriguez MD Service: Vascular Surgery Author Type: Physician Type: Operative Report Filed: 06/19/2022 2:59 PM Note Text: [facility] - Operative Report MEL GUADARRAMA : 1940 AGE: 81. SEX: F PATIENT TYPE: I HOSP SVC: ICU LOCATION: [facility] ATTENDING PHYSICIAN: DWAYNE ZAIDI CSN NUMBER: [id number] DATE OF SURGERY/PROCEDURE: 06/16/2022 INCISION/PROCEDURE START TIME: 5:01 PM INCISION CLOSE/PROCEDURE END TIME: 6:58 PM PREOPERATIVE DIAGNOSIS: Left lower extremity deep vein thrombosis. POSTOPERATIVE DIAGNOSIS: Left lower extremity deep vein thrombosis. SURGEON: Frida Rodriguez MD OFFICE SERVICES CLERK: Resident, Emanuel Hull SURGERY/PROCEDURE: Venogram with intravascular [...] micropuncture needle and serially upsized to a 5-Panamanian sheath. A venogram was then performed, which [...] time, the sheath was upsized to an 8-Panamanian sheath. An intravascular ultrasound was performed. This [...] unit for further monitoring. Frida Rodriguez MD LM:[id number] Normal [facility] Phosphate SerPl-mCncon 06-19 Phosphate [Mass/Vol] 2.4 mg/dL Low 2.7-4.8 [facility] Comment on above: Order Comment: Speci men Type: BLOOD SPECIMENOrdering Facility: [facility] Address: [address] [place] [address] Performed By: #### 3 2355-0 #### [facility] CLIA [id number] 1 [place] [address] [place] aPTT PPPon 06-19-2022 aPTT Coag (PPP) [Time] 46.9 s High 23.0-32.4 [facility] Comment on above: Order Comment: Speci men Type: BLOOD SPECIMENOrdering Facility: [facility] Address: [address] [place] [address] Performed By: #### 1 4979-9 ####[facility]ATORYCLIA [id number] [place] [address] [place] aPTT Coag (PPP) [Time] 83.8 s High 23.0-32.4 [facility] Comment on above: Order Comment: Speci men Type: BLOOD SPECIMENOrdering Facility: [facility] Address: [address] [place] [address] Performed By: #### 3 2355-0 #### [facility] CLIA [id number] [address] [place] Basic metabolic 2000 panelon 06-18-2022 Anion gap [Moles/Vol] 10 mmol/L Normal 9-18 [facility] Comment on above: Order Comment: Speci men Type: BLOOD SPECIMENOrdering Facility: [facility] Address: [address] [place] [address] Performed By: #### 2 4321-2, 38063-2, , 2776-07 ####[facility]ORYCLIA [id number] [place] [address] [place] Calcium [Mass/Vol] 8.0 mg/dL Low 8.5-10.2 [facility] Comment on above: Order Comment: Speci men Type: BLOOD SPECIMENOrdering Facility: [facility] Address: [address] [place] [address] Performed By: #### 2 4321-2, 21544-4, , 2776-07 ####[facility]ATORYCLIA [id number] [place] [address] [place] Chloride [Moles/Vol] 102 mmol/L Normal 97-105 [facility] Comment on above: Order Comment: Speci men Type: BLOOD SPECIMENOrdering Facility: [facility] Address: [address] [place] [address] Performed By: #### 2 4321-2, 88920-2, , 2776-07 ####[facility]ORYCLIA [id number] [address] STATES OF [facility] CO2 [Moles/Vol] 21 mmol/L Low 22-30 [facility] Comment on above: Order Comment: Speci men Type: BLOOD SPECIMENOrdering Facility: [facility] Address: [address] [place] [address] Performed By: #### 2 4321-2, 92015-8, , 2776-07 ####[facility] [id number] [address] OF [facility] Creatinine [Mass/Vol] 1.17 mg/dL High 0.58-0.96 [facility] Comment on above: Order Comment: Speci men Type: BLOOD SPECIMENOrdering Facility: [facility] Address: [address] [place] [address] Performed By: #### 2 4321-2, 84038-4, , 2776-07 ####[facility]ATORYCLIA [id number] [address] OF [facility] ESTIMATED GLOMERULAR FILTRATION RATE 47 mL/min/1.73m??? Low >=60 [facility] Comment on above: Order Comment: Speci men Type: BLOOD SPECIMENOrdering Facility: [facility] Address: [address] [place] [address] Result Comment: Isa mated Glomerular Filtration Rate [...] actual GFR. Performed By: #### 2 4321-2, 73770-6, , 2776-07 ####[facility]ATORYCLIA [id number] [place] [address] [place] Glucose [Mass/Vol] 112 mg/dL High 74-99 [facility] Comment on above: Order Comment: Speci men Type: BLOOD SPECIMENOrdering Facility: [facility] Address: [address] [place] [address] Result Comment: The [place] Diabetes Association (ADA) provides guidance for cutoff [...] Standards of Medical Care in Diabetes 2016, [place] [employer]. Diabetes Care. 2016.39(Suppl 1). Performed By: #### 2 4321-2, 00120-4, , 2776-07 ####[facility]ATORYCLIA [id number] [place] [address] [place] Potassium [Moles/Vol] 4.4 mmol/L Normal 3.7-5.1 [facility] Comment on above: Order Comment: Speci men Type: BLOOD SPECIMENOrdering Facility: [facility] Address: [address] [place], [place] [address] Performed By: #### 2 4321-2, 59285-4, , 2776-07 ####[facility]ORYCLIA [id number] [place] [address] [place] Sodium [Moles/Vol] 133 mmol/L Low 136-144 [facility] Comment on above: Order Comment: Speci men Type: BLOOD SPECIMENOrdering Facility: [facility] Address: [address] [place] [address] Performed By: #### 2 4321-2, 40932-1, , 2776-07 ####[facility]ORYCLIA [id number] [address] [place] Urea nitrogen [Mass/Vol] 25 mg/dL High 7-21 [facility] Comment on above: Order Comment: Speci men Type: BLOOD SPECIMENOrdering Facility: [facility] Address: [address] [place] [address] Performed By: #### 2 4321-2, 15278-0, 36194-1, 2777- ####[facility]ORYCLIA [id number] [address] [place] [facility] CBC panel Auto (Bld)on 06-18 Erythrocyte distribution width (RBC) [Ratio] 15.6 % High 11.5-15.0 [facility] Comment on above: Order Comment: Speci men Type: BLOOD SPECIMENOrdering Facility: [facility] Address: [address] [place] [address] Performed By: #### 5 8410-2 ####[facility]ORYCLIA [id number] [address] STATES OF [facility] Hematocrit (Bld) [Volume fraction] 26.8 % Low 36.0-46.0 [facility] Comment on above: Order Comment: Speci men Type: BLOOD SPECIMENOrdering Facility: [facility] Address: [address] [place] [address] Performed By: #### 5 8410-2 ####[facility]ORYCLIA [id number] [address] [place] OF [facility] Hemoglobin (Bld) [Mass/Vol] 8.5 g/dL Low 11.5-15.5 [facility] Comment on above: Order Comment: Speci men Type: BLOOD SPECIMENOrdering Facility: [facility] Address: [address] [place] [address] Performed By: #### 5 8410-2 ####[facility]ORYCLIA [id number] [address] STATES [facility] MCH (RBC) [Entitic mass] 30.1 pg Normal 26.0-34.0 [facility] Comment on above: Order Comment: Speci men Type: BLOOD SPECIMENOrdering Facility: [facility] Address: [address] [place] [address] Performed By: #### 5 8410-2 ####[facility]ORYCLIA [id number] [address] MCHC (RBC) [Mass/Vol] 31.7 g/dL Normal 30.5-36.0 [facility] Comment on above: Order Comment: Speci men Type: BLOOD SPECIMENOrdering Facility: [facility] Address: [address] [place] [address] Performed By: #### 5 8410-2 ####[facility]ORYCLIA [id number] [address] [place] MCV (RBC) [Entitic vol] 95.0 fL Normal 80.0-100.0 [facility] Comment on above: Order Comment: Speci men Type: BLOOD SPECIMENOrdering Facility: [facility] Address: [address] [place] [address] Performed By: #### 5 8410-2 ####[facility]ATORYCLIA [id number] [address] Nucleated RBC (Bld) [#/Vol] 0.03 10*3/uL High <0.01 [facility] Comment on above: Order Comment: Speci men Type: BLOOD SPECIMENOrdering Facility: [facility] Address: [address] [place] [address] Performed By: #### 5 8410-2 ####[facility]ATORYCLIA [id number] [address] Platelet mean volume (Bld) [Entitic vol] 10.2 fL Normal 9.0-12.7 [facility] Comment on above: Order Comment: Speci men Type: BLOOD SPECIMENOrdering Facility: [facility] Address: [address] [place] [address] Performed By: #### 5 8410-2 ####[facility]ATORYCLIA [id number] [place] [address] [place] Platelets (Bld) [#/Vol] 234 10*3/uL Normal 150-400 [facility] Comment on above: Order Comment: Speci men Type: BLOOD SPECIMENOrdering Facility: [facility] Address: [address] [place] [address] Performed By: #### 5 8410-2 ####[facility]ATORYCLIA [id number] [place] [address] [place] RBC (Bld) [#/Vol] 2.82 10*6/uL Low 3.90-5.20 [facility] Comment on above: Order Comment: Speci men Type: BLOOD SPECIMENOrdering Facility: [facility] Address: [address] [place] [address] Performed By: #### 5 8410-2 ####[facility]ORYCLIA [id number] [address] WBC (Bld) [#/Vol] 8.77 10*3/uL Normal 3.70-11.00 [facility] Comment on above: Order Comment: Speci men Type: BLOOD SPECIMENOrdering Facility: [facility] Address: [address] [place] [address] Performed By: #### 5 8410-2 ####[facility]ATORYCLIA [id number] [address] CONSULT PROGon 06-18-2022 CONSULT PROG HNO ID: [id number] Author: Jessica Colmenares APRN.BUSINESS EMPLOYMENT SPECIALIST Service: Cardiovascular Medicine Author Type: Nurse Practitioner Type: Consult Progress Note Filed: 06/18/2022 2:46 PM Note Text: The ECHO reviewed, EF 59%. No significant valvular abnormalities. Chart reviewed, no further recommendations. Thank you, Jessica Colmenares APRN.BUSINESS EMPLOYMENT SPECIALIST Normal [facility] CONSULT PROG HNO ID: [id number] Author: Cirilo Yip tali Service: Pharmacy Author Type: Pharmacist Type: Consult [...] or concerns. SIGNATURE: Cirilo Yip [facility] DATE/TIME: 06/18/2022 12:02 PM [facility] CONSULT PROG HNO ID: [id number] Author: Nimo Arzola MD Service: General Surgery [...] questions or concerns Mon-Fri 6a-5p please page [phone]. After 5pm and on Weekends and Holidays, [...] O2 Therapy: Room Air IANDO: Date 06/17/22 07 - 06/18/22 0659 06/18/22 07 - 06/19/22 0659 Shift 5924-2577 4066-3991 6445-7877 24 Hour Total 9419-2622 3516-7945 0649-0161 24 Hour Total INTAKE IV 350 15 365 Volume (mL) 15 15 Volume (mL) (lactated ringers iv infusion) 350 350 Shift Total 350 15 365 OUTPUT Urine 5997 649 1003 Void (ml) 1450 1450 Output ( External Collection Device 06/16/22 2331) 400 400 # of BMs Stool Incontinence 1 x 1 x Number of BMs 1 x 1 x Shift Total 0985 467 2273 Weight (kg) 71.2 71.2 71.2 71.2 71.2 [...] COPD (chronic obstructive pulmonary disease) ([facility]) 06/16/2022 Tobacco abuse 06/16/2022 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 Normal [facility] Lipid 1996 panelon 2 Cholesterol [Mass/Vol] 139 mg/dL Normal <200 [facility] Comment on above: Order Comment: Speci men Type: BLOOD SPECIMENOrdering Facility: [facility] Address: [address] [place] [phone] Result Comment: <200 mg/dL, Desirable 200-239 mg/dL, Borderline high >239 mg/dL, High Performed By: #### 2 4321-2, 82894-5, , 2776-07 ####[facility]ORYCLIA [id number] [address] Cholesterol in HDL [Mass/Vol] 56 mg/dL Normal >39 [facility] Comment on above: Order Comment: Samiri men Type: BLOOD SPECIMENOrdering Facility: [facility] Address: [address] [place] [address] Result Comment: 40-5 9 mg/dL, Acceptable >59 mg/dL, High: Negative risk factor for coronary heart disease <40 mg/dL, Low: Positive risk factor for coronary heart disease Performed By: #### 2 4321-2, 97970-4, , 2776-07 ####[facility]ORYCLIA [id number] [address] Cholesterol in LDL [Mass/Vol] 64 mg/dL Normal <100 [facility] Comment on above: Order Comment: [facility] Type: BLOOD SPECIMENOrdering Facility: [facility] Address: [address] [place] [address] Result Comment: <100 mg/dL, Optimal 100-129 mg/dL, Near optimal/above optimal 130-159 mg/dL, Borderline high 160-189 mg/dL, High >189 mg/dL, Very high Secondary prevention optimal LDL Cholesterol levels are recommended to be < 70 mg/dL Performed By: #### 2 4321-2, 06294-8, , 2776-07 ####[facility]ATORYCLIA [id number] [address] Cholesterol in LDL/Cholesterol in HDL [Mass ratio] 1.14 {ratio} Normal <2.54 [facility] Comment on above: Order Comment: Rhina mason Type: BLOOD SPECIMENOrdering Facility: [facility] Address: [address] [place] [address] Result Comment: Refe rence: 1. National Cholesterol Education Program ATP III Guideline At-A-Glance Quick Desk Reference: National Heart, Lung, and Blood [place]. National Institutes of Health. 2001: NIH Publication No. 01-3305. 2. An International Atherosclerosis Society position paper: global recommendations for the management of dyslipidemia: executive summary, Atherosclerosis. 2014: 232(2):410-413. Performed By: #### 2 4321-2, 91749-8, , 2776-07 ####[facility]ATORYCLIA [id number] [place] [address] [place] Cholesterol in VLDL [Mass/Vol] 19 mg/dL Normal <30 [facility] Comment on above: Order Comment: Speci men Type: BLOOD SPECIMENOrdering Facility: [facility] Address: [address] [place] [address] Performed By: #### 2 4321-2, 40347-2, , 2776-07 ####[facility]CL[facility] [id number] [address] [place] Cholesterol non HDL [Mass/Vol] 83 mg/dL Normal <130 [facility] Comment on above: Order Comment: Speci men Type: BLOOD SPECIMENOrdering Facility: [facility] Address: [address] [place] [address] Result Comment: <130 mg/dL, Optimal 130-159 mg/dL, Near optimal/above optimal 160-189 mg/dL, Borderline high 190-219 mg/dL, High >219 mg/dL, Very high Secondary prevention optimal non HDL Cholesterol levels are recommended to be <100 mg/dL Performed By: #### 2 4321-2, 84968-1, , 2776-07 ####[facility]ATORYCLIA [id number] [address] [place] Cholesterol.total/Pastora sterol in HDL [Mass ratio] 2.48 {ratio} Normal <5.10 [facility] Comment on above: Order Comment: Speci men Type: BLOOD SPECIMENOrdering Facility: [facility] Address: [address] [address] Performed By: #### 2 4321-2, 46114-5, , 2776-07 ####[facility]ATORYCLIA [id number] [place] [address] [place] FASTING TIME [address] [facility] Comment on above: Order Comment: Speci men Type: BLOOD SPECIMENOrdering Facility: [facility] Address: [address] [place] [address] Performed By: #### 2 4321-2, 91842-9, , 2776-07 ####[facility]ATORYCLIA [id number] [place] [address] [place] Triglyceride [Mass/Vol] 93 mg/dL Normal <150 [facility] Comment on above: Order Comment: Speci men Type: BLOOD SPECIMENOrdering Facility: [facility] Address: [address] [place] [address] Result Comment: <150 mg/dL, Normal 150-199 mg/dL, Borderline high 200-499 mg/dL, High >499 mg/dL, Very high Performed By: #### 2 4321-2, 05315-3, , 2776-07 ####[facility]ATORYCLIA [id number] [place] [address] [place] Magnesium SerPl-mCncon 06-18 Magnesium [Mass/Vol] 2.1 mg/dL Normal 1.7-2.3 [facility] Comment on above: Order Comment: Speci men Type: BLOOD SPECIMENOrdering Facility: [facility] Address: [address] [place] [address] Performed By: #### 2 4321-2, 87765-5, , 2776-07 ####[facility]ATORYCLIA [id number] [place] [address] [place] Phosphate SerPl-mCncon 06-18 Phosphate [Mass/Vol] 3.3 mg/dL Normal 2.7-4.8 [facility] Comment on above: Order Comment: Speci men Type: BLOOD SPECIMENOrdering Facility: [facility] Address: [address] [place], [place] [address] Performed By: #### 2 4321-2, 87306-9, 93565-3, 2777-1 ####[facility]ATORYCLIA [id number] [address] aPTT PPPon 06-18-2022 aPTT Coag (PPP) [Time] 37.2 s High 23.0-32.4 [facility] Comment on above: Order Comment: Speci men Type: BLOOD SPECIMENOrdering Facility: [facility] Address: [address] [place] [address] Performed By: #### 9 4500-6 #### [facility] CLIA [id number] [address] [place] [address] aPTT Coag (PPP) [Time] 58.8 s High 23.0-32.4 [facility] Comment on above: Order Comment: Speci men Type: BLOOD SPECIMENOrdering Facility: [facility] Address: [address] [place] [address] Performed By: #### 1 4979-9 ####[facility]ATORYCLIA [id number] [address] aPTT Coag (PPP) [Time] 127.7 s High 23.0-32.4 [facility] Comment on above: Order Comment: Speci men Type: BLOOD SPECIMEN Ordering Facility[facility] Address: [address] [place] [address] Performed By: #### T SCR #### [facility] CLIA [id number] [address] [place] [address] ALLIED HEALTHon 06-17-2022 ALLIED HEALTH HNO ID: [id number] Author: RT [place](R) Service: Radiology Author Type: [...] [facility] ALLIED HEALTH HNO ID: [id number] Author: Jeremías Bragg II Service: Infection Prevention Author Type: ? Type: [...] TIME: 8:27 AM PAGER/CONTACT #: Infection Prevention, [phone] Infection Prevention after hours/weekend pager: [phone] [facility] ANES POSTPROC EVALon 022 ANES POSTPROC EVAL HNO ID: [id number] Author: Larry Moss MD Service: Anesthesiology Author Type: Anesthesiologist Type: Anesthesia Postprocedure Evaluation Filed: 06/17/2022 6:51 AM Note Text: POST ANESTHESIA EVALUATION NOTE : 1940 Procedure Summary Date: 06/16/22 Room / Location: [place] 10 / [place] Anesthesia Start: [...] June 17, 2022 TIME: 6:50 AM CSN: [id number] Normal [facility] Basic metabolic 2000 panelon 06-17-2022 Anion gap [Moles/Vol] 9 mmol/L Normal 9-18 [facility] Comment on above: Order Comment: Speci men Type: BLOOD SPECIMENOrdering Facility: [facility] Address: [address] [place] [address] Performed By: #### 2 4321-2, 31785-7, 2777-1 ####[facility] LABORATORYCLIA [id number] [place] [address] [place] Calcium [Mass/Vol] 7.9 mg/dL Low 8.5-10.2 [facility] Comment on above: Order Comment: Speci men Type: BLOOD SPECIMENOrdering Facility: [facility] Address: [address] [address] Performed By: #### 2 4321-2, , 2776-07 ####[facility] LABORATORYCLIA [id number] [place] [address] [place] Chloride [Moles/Vol] 107 mmol/L High 97-105 [facility] Comment on above: Order Comment: Speci men Type: BLOOD SPECIMENOrdering Facility: [facility] Address: [address] [place] [address] Performed By: #### 2 4321-2, , 2776-07 ####[facility] LABORATORYCLIA [id number] [address] [place] CO2 [Moles/Vol] 21 mmol/L Low 22-30 [facility] Comment on above: Order Comment: Speci men Type: BLOOD SPECIMENOrdering Facility: [facility] Address: [address] [place] [address] Performed By: #### 2 4321-2, , 2776-07 ####[facility]CLIA [id number] [place] [address] [place] Creatinine [Mass/Vol] 0.99 mg/dL High 0.58-0.96 [facility] Comment on above: Order Comment: Speci men Type: BLOOD SPECIMENOrdering Facility: [facility] Address: [address] [place] [address] Performed By: #### 2 4321-2, , 2776-07 ####[facility] LABORATORYCLIA [id number] [address] [place] ESTIMATED GLOMERULAR FILTRATION RATE 57 mL/min/1.73m??? Low >=60 [facility] Comment on above: Order Comment: Speci men Type: BLOOD SPECIMENOrdering Facility: [facility] Address: [address] [place] [address] Result Comment: Isa mated Glomerular Filtration Rate [...] Performed By: #### 2 4321-2, , 2776-07 ####[facility]PITALSIA [id number] [place] [address] [place] Glucose [Mass/Vol] 84 mg/dL Normal 74-99 [facility] Comment on above: Order Comment: Rhina mason Type: BLOOD SPECIMENOrdering Facility: [facility] Address: [address] [place] [address] Result Comment: The [place] Diabetes Association (ADA) provides guidance for cutoff [...] Standards of Medical Care in Diabetes 2016, [place] [employer]. Diabetes Care. 2016.39(Suppl 1). Performed By: #### 2 4321-2, , 2776-07 ####[facility]PITALSIA [id number] [place] [address] [place] Potassium [Moles/Vol] 4.3 mmol/L Normal 3.7-5.1 [facility] Comment on above: Order Comment: Rhina mason Type: BLOOD SPECIMENOrdering Facility: [facility] Address: [address] [place], [place] [address] Performed By: #### 2 4321-2, , 2776-07 ####[facility] LABORATORYCLIA [id number] [address] STATES [facility] Sodium [Moles/Vol] 137 mmol/L Normal 136-144 [facility] Comment on above: Order Comment: Speci men Type: BLOOD SPECIMENOrdering Facility: [facility] Address: [address] [place] [address] Performed By: #### 2 4321-2, 57374-7, 2777-1 ####[facility] LABORATORYCLIA [id number] [address] [place] Urea nitrogen [Mass/Vol] 27 mg/dL High 7-21 [facility] Comment on above: Order Comment: Speci men Type: BLOOD SPECIMENOrdering Facility: [facility] Address: [address] [place] [address] Performed By: #### 2 4321-2, , 2776-07 ####[facility] LABORATORYCLIA [id number] [address] STATES OF [facility] CBC panel Auto (Bld)on 06-17 Erythrocyte distribution width (RBC) [Ratio] 15.5 % High 11.5-15.0 [facility] Comment on above: Order Comment: Speci men Type: BLOOD SPECIMENOrdering Facility: [facility] Address: [address] [place] [address] Performed By: #### 5 8410-2 ####[facility] LABORATORYCLIA [id number] [address] STATES OF [facility] Hematocrit (Bld) [Volume fraction] 26.6 % Low 36.0-46.0 [facility] Comment on above: Order Comment: Speci men Type: BLOOD SPECIMENOrdering Facility: [facility] Address: [address] [place] [address] Performed By: #### 5 8410-2 ####[facility] LABORATORYCLIA [id number] [address] [place] Hemoglobin (Bld) [Mass/Vol] 8.5 g/dL Low 11.5-15.5 [facility] Comment on above: Order Comment: Speci men Type: BLOOD SPECIMENOrdering Facility: [facility] Address: [address] [place] [address] Performed By: #### 5 8410-2 ####[facility] LABORATORYCLIA [id number] [address] MCH (RBC) [Entitic mass] 30.0 pg Normal 26.0-34.0 [facility] Comment on above: Order Comment: Speci men Type: BLOOD SPECIMENOrdering Facility: [facility] Address: [address] [place] [address] Performed By: #### 5 8410-2 ####[facility] LABORATORYCLIA [id number] [address] MCHC (RBC) [Mass/Vol] 32.0 g/dL Normal 30.5-36.0 [facility] Comment on above: Order Comment: Speci men Type: BLOOD SPECIMENOrdering Facility: [facility] Address: [address] [place] [address] Performed By: #### 5 8410-2 ####[facility] LABORATORYCLIA [id number] [address] MCV (RBC) [Entitic vol] 94.0 fL Normal 80.0-100.0 [facility] Comment on above: Order Comment: Speci men Type: BLOOD SPECIMENOrdering Facility: [facility] Address: [address] [place] [address] Performed By: #### 5 8410-2 ####[facility] LABORATORYCLIA [id number] [address] Nucleated RBC (Bld) [#/Vol] 0.02 10*3/uL High <0.01 [facility] Comment on above: Order Comment: Speci men Type: BLOOD SPECIMENOrdering Facility: [facility] Address: [address] [place] [address] Performed By: #### 5 8410-2 ####[facility] LABORATORYCLIA [id number] [place] [address] Platelet mean volume (Bld) [Entitic vol] 9.5 fL Normal 9.0-12.7 [facility] Comment on above: Order Comment: Speci men Type: BLOOD SPECIMENOrdering Facility: [facility] Address: [address] [place] [address] Performed By: #### 5 8410-2 ####[facility] LABORATORYCLIA [id number] [place] [address] [place] Platelets (Bld) [#/Vol] 223 10*3/uL Normal 150-400 [facility] Comment on above: Order Comment: Speci men Type: BLOOD SPECIMENOrdering Facility: [facility] Address: [address] [place] [address] Performed By: #### 5 8410-2 ####[facility] LABORATORYCLIA [id number] [address] STATES OF [facility] RBC (Bld) [#/Vol] 2.83 10*6/uL Low 3.90-5.20 [facility] Comment on above: Order Comment: Speci men Type: BLOOD SPECIMENOrdering Facility: [facility] Address: [address] [place] [address] Performed By: #### 5 8410-2 ####[facility] LABORATORYCLIA [id number] [address] [place] WBC (Bld) [#/Vol] 8.61 10*3/uL Normal 3.70-11.00 [facility] Comment on above: Order Comment: Speci men Type: BLOOD SPECIMENOrdering Facility: [facility] Address: [address] [place] [address] Performed By: #### 5 8410-2 ####[facility] LABORATORYCLIA [id number] [address] CONSULTon 06-17-2022 CONSULT HNO ID: [id number] Author: García Monique MD Service: Cardiovascular Medicine Author Type: Physician Type: Consults Filed: 06/17/2022 11:14 AM Note Text: CARDIOVASCULAR INTENSIVE CARE UNIT (CVICU) History AND Physical Note PATIENT NAME: Mel Castillo DATE: June 17, 2022 ADMITTED FOR: Subjective HPI Ms. Mel Castillo is a 81 year old female with PMH: - Paroxysmal Afib - GERD - HTN - Hypothyroidism Patient presented to [facility] on 06/16/2022 for evaluation of left [...] her covid symptoms. 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 Comment: This test has been authorized by FDA under an Emergency Use Authorization (EUA). IMAGING: CT chest: No results found for: (more content not included)... Normal [facility] CONSULT PROGon 06-17-2022 CONSULT PROG HNO ID: [id number] Author: Dominique Lauren RPh Service: Pharmacy Author [...] [facility] CONSULT PROG HNO ID: [id number] Author: Emanuel Hull MD Service: General Surgery [...] questions or concerns Mon-Fri 6a-5p please page [phone]. After 5pm and on Weekends and Holidays, please page [phone] if in ICU or [phone] if on RNF. Subjective SUBJECTIVE: Was able [...] 0659 06/17/22 0700 - 06/18/22 0659 Shift [phone] 2668-0217 3415-9505 24 Hour Total 0116-6385 6873-4668 2830-0946 24 Hour Total INTAKE IV 600 1000 [...] Estimated Blood loss 100 100 Shift Total 191 386 2561 Weight (kg) 72.6 71.2 71.2 71.2 71.2 [...] 06/16/2022 Assessme (more content not included)... Normal [facility] ECHOon 06-17-2022 Echocardiography Echocardiography Report: Transthoracic Echo [facility] Date of service: 06/17/2022 10:27:19 AM HOSPITAL Ordering physician: GARCÍA MONIQUE Indication: Nonsustained atrial fibrillation Technologist: Glendy Pena [facility] Interpreting physician: Nando Costa [...] * * Final * * * CC [email or web address] Medical Image : [id number] Normal [facility] Magnesium [facility] 06-17 Magnesium [Mass/Vol] 2.1 mg/dL Normal 1.7-2.3 [facility] Comment on above: Order Comment: Speci men Type: BLOOD SPECIMENOrdering Facility: [facility] Address: [address] [place] [address] Performed By: #### 2 4321-2, 86340-5, 2777-1 ####[facility] LABORATORYCLIA [id number] [place] [id number] [facility] Phosphate [facility] 06-17 Phosphate [Mass/Vol] 3.8 mg/dL Normal 2.7-4.8 [facility] Comment on above: Order Comment: Speci men Type: BLOOD SPECIMENOrdering Facility: [facility] Address: [address] [address] Performed By: #### 2 4321-2, 91797-4, 2777-1 ####[facility] LABORATORYCLIA [id number] [address] [place] XR CHEST 1V FRONTALon [...] Comparison: None. RESULT: Lines, tubes, and devices: manager monitoring leads. Hardware noted in the proximal right [...] in both lungs suspicious for multifocal pneumonia. Dynamite Reclaimer: DEVEN Transcribe Date/Time: Jun 17 2022 10:41A Dictated by : DI MINER MD This examination was interpreted and the report reviewed and electronically signed by: DI MINER MD on Jun 17 2022 10:43AM EST [id number] Normal [facility] aPTT PPPon 06-17-2022 aPTT Coag (PPP) [Time] 48.4 s High 23.0-32.4 [facility] Comment on above: Order Comment: Speci men Type: BLOOD SPECIMENOrdering Facility: [facility] Address: [address] [place] [address] Performed By: #### 9 4500-6 #### [facility] CLIA [id number] [address] aPTT Coag (PPP) [Time] 29.4 s Normal 23.0-32.4 [facility] Comment on above: Order Comment: Speci men Type: BLOOD SPECIMENOrdering Facility: [facility] Address: [address] [address] Performed By: #### 3 2355-0 #### [facility] CLIA [id number] [address] aPTT Coag (PPP) [Time] 125.1 s High 23.0-32.4 [facility] Comment on above: Order Comment: Speci men Type: BLOOD SPECIMEN [facility] Address: [address] [place] [address] Performed By: #### T SCR #### [facility] CLIA [id number] [address] aPTT Coag (PPP) [Time] s High 23.0-32.4 [facility] Comment on above: Order Comment: Speci men Type: BLOOD SPECIMENOrdering Facility: [facility] Address: [address] [place] [address] Performed By: #### 3 2355-0 #### [facility] CLIA [id number] [id number] [place] aPTT Coag (PPP) [Time] 28.5 s Normal 23.0-32.4 [facility] Comment on above: Order Comment: Speci men Type: BLOOD SPECIMENOrdering Facility: [facility] Address: [facility] [place] [address] Performed By: #### 1 4979-9 ####[facility] LABORATORYCLIA [id number] [address] [id number] [place] ANES PRE-OPon 06-16-2022 ANES PRE-OP HNO ID: [id number] Author: Olu Winn MD Service: Anesthesiology Author Type: Physician Type: Anesthesia Preprocedure Evaluation Filed: 06/16/2022 5:41 PM Note Text: ANESTHESIOLOGY DAY OF SURGERY NOTE : 1940 Procedure Information Date/Time: 06/16/221539 Procedure: TRANSCATHETER THERAPY VENOUS INFUSION FOR THROMBOLYSIS W/RADIOLOGICAL SUPERVISION/INTERPRETAT ION INITIAL TREATMENT DAY, venogram (Left: Leg lower ) Location: [place] Surgeons: Frida Rodriguez MD Estimated body [...] and consent discussed: yes. Patient / Responsible Democrat agrees to proceed: yes Patient / Surrogate [...] June 16, 2022 TIME: 3:44 PM CSN: [id number] [facility] BRIEF OP NOTon 06-16-2022 BRIEF OP NOT HNO ID: [id number] Author: Emanuel Hull MD Service: General Surgery Author Type: Resident Type: Brief Op Note Filed: 06/16/2022 7:23 PM Note Text: Attestation signed by Frida Rodriguez MD at 06/19/2022 2:07 PM Attending Note I personally saw and examined the patient 06/16/22. I reviewed the resident's note. I agree with the resident's assessment and plan unless otherwise noted. Signature: Frdia Rodriguez MD Date: 06/19/2022 Time: 2:07 PM BRIEF OPERATIVE / PROCEDURE NOTE LOG ID: [id number] Surgery/Procedure Date: 06/16/2022 Incision/Procedure Start Time: 5:01 PM Incision Close/Procedure End Time: 6:58 PM Surgeon(s)/Proceduralis t(s) and Forklift Supervisor(s): Surgeon(s) and Role: * Frida Rodriguez MD [...] and on weekends, please page surgery on-call [phone] (RNF) or [phone] (ICU) SIGNATURE: Emanuel Hull MD PATIENT NAME: Mel Castillo DATE: June 16, 2022 TIME: 7:19 PM PAGER/CONTACT #: [phone] [facility] CBC W Auto Differential pane l (Bld)on 06-16-2022 Anisocytosis Ql (Bld) Present Normal [facility] Comment on above: Order Comment: Speci men Type: BLOOD SPECIMENOrdering Facility: [facility] Address: [address] [place] [address] Performed By: #### 5 7021-8 ####[facility] LABORATORYCLIA [id number] [address] OF [facility] Basophils (Bld) [#/Vol] 0.00 10*3/uL Normal <0.11 [facility] Comment on above: Order Comment: Speci men Type: BLOOD SPECIMENOrdering Facility: [facility] Address: [address] [place] [address] Performed By: #### 5 7021-8 ####[facility] LABORATORYCLIA [id number] [address] [place] Basophils/100 WBC (Bld) 0.0 % Normal A [facility] Comment on above: Order Comment: Speci men Type: BLOOD SPECIMENOrdering Facility: [facility] Address: [address] [place] [address] Performed By: #### 5 7021-8 ####[facility]ORATORYCLIA [id number] [address] [place] Differential cell count method Nom (Bld) Manual Normal [facility] Comment on above: Order Comment: Speci men Type: BLOOD SPECIMENOrdering Facility: [facility] Address: [address] [place] [address] Performed By: #### 5 7021-8 ####[facility] LABORATORYCLIA [id number] [place] [address] [place] Eosinophils (Bld) [#/Vol] 0.00 10*3/uL Normal <0.46 [facility] Comment on above: Order Comment: Speci men Type: BLOOD SPECIMENOrdering Facility: [facility] Address: [address] [place] [address] Performed By: #### 5 7021-8 ####[facility] LABORATORYCLIA [id number] [address] OF [facility] Eosinophils/100 WBC (Bld) 0.0 % Normal [facility] Comment on above: Order Comment: Speci men Type: BLOOD SPECIMENOrdering Facility: [facility] Address: [address] [place] [address] Performed By: #### 5 7021-8 ####[facility] LABORATORYCLIA [id number] [address] [place] Erythrocyte distribution width (RBC) [Ratio] 15.6 % High 11.5-15.0 [facility] Comment on above: Order Comment: Speci men Type: BLOOD SPECIMENOrdering Facility: [facility] Address: [address] [place] [address] Performed By: #### 5 7021-8 ####[facility] LABORATORYCLIA [id number] [address] Hematocrit (Bld) [Volume fraction] 35.3 % Low 36.0-46.0 [facility] Comment on above: Order Comment: Speci men Type: BLOOD SPECIMENOrdering Facility: [facility] Address: [address] [place] [address] Performed By: #### 5 7021-8 ####[facility] LABORATORYCLIA [id number] [address] [place] Hemoglobin (Bld) [Mass/Vol] 11.4 g/dL Low 11.5-15.5 [facility] Comment on above: Order Comment: Speci men Type: BLOOD SPECIMENOrdering Facility: [facility] Address: [address] [place] [address] Performed By: #### 5 7021-8 ####[facility] LABORATORYCLIA [id number] [address] [place] Lymphocytes (Bld) [#/Vol] 1.27 10*3/uL Normal 1.00-4.00 [facility] Comment on above: Order Comment: Speci men Type: BLOOD SPECIMENOrdering Facility: [facility] Address: [address] [place] [address] Performed By: #### 5 7021-8 ####[facility] LABORATORYCLIA [id number] [address] OF [facility] Lymphocytes/100 WBC (Bld) 8.0 % Normal [facility] Comment on above: Order Comment: Speci men Type: BLOOD SPECIMENOrdering Facility: [facility] Address: [address] [place] [address] Performed By: #### 5 7021-8 ####[facility] LABORATORYCLIA [id number] [address] [place] MCH (RBC) [Entitic mass] 30.2 pg Normal 26.0-34.0 [facility] Comment on above: Order Comment: Speci men Type: BLOOD SPECIMENOrdering Facility: [facility] Address: [address] [place] [address] Performed By: #### 5 7021-8 ####[facility] LABORATORYCLIA [id number] [address] [place] MCHC (RBC) [Mass/Vol] 32.3 g/dL Normal 30.5-36.0 [facility] Comment on above: Order Comment: Speci men Type: BLOOD SPECIMENOrdering Facility: [facility] Address: [address] [place] [address] Performed By: #### 5 7021-8 ####[facility] LABORATORYCLIA [id number] [address] STATES [facility] MCV (RBC) [Entitic vol] 93.6 fL Normal 80.0-100.0 A [facility] Comment on above: Order Comment: Speci men Type: BLOOD SPECIMENOrdering Facility: [facility] Address: [address] [place] [address] Performed By: #### 5 7021-8 ####[facility]ORATORYCLIA [id number] [place] [address] [place] Monocytes (Bld) [#/Vol] 1.74 10*3/uL High <0.87 [facility] Comment on above: Order Comment: Speci men Type: BLOOD SPECIMENOrdering Facility: [facility] Address: [address] [place] [address] Performed By: #### 5 7021-8 ####[facility]ORATORYCLIA [id number] [address] [place] Monocytes/100 WBC (Bld) 11.0 % Normal [facility] Comment on above: Order Comment: Speci men Type: BLOOD SPECIMENOrdering Facility: [facility] Address: [address] [place] [address] Performed By: #### 5 7021-8 ####[facility]ATORYCLIA [id number] [address] [place] MYELO% 4.0 % Normal [facility] Comment on above: Order Comment: Speci men Type: BLOOD SPECIMENOrdering Facility: [facility] Address: [address] [place] [address] Performed By: #### 5 7021-8 ####[facility]ATORYCLIA [id number] [address] [place] Neutrophils (Bld) [#/Vol] 12.02 10*3/uL High 1.45-7.50 [facility] Comment on above: Order Comment: Speci men Type: BLOOD SPECIMENOrdering Facility: [facility] Address: [address] [place] [address] Performed By: #### 5 7021-8 ####[facility]ORATORYCLIA [id number] [address] Neutrophils/100 WBC (Bld) 76.0 % Normal [facility] Comment on above: Order Comment: Speci men Type: BLOOD SPECIMENOrdering Facility: [facility] Address: [address] [address] Performed By: #### 5 7021-8 ####[facility]ORATORYCLIA [id number] [address] [place] Nucleated RBC (Bld) [#/Vol] 10*3/uL Normal <0.01 [facility] Comment on above: Order Comment: Speci men Type: BLOOD SPECIMENOrdering Facility: [facility] Address: [address] [address] Performed By: #### 5 7021-8 ####[facility] LABORATORYCLIA [id number] [address] [place] Nucleated RBC/100 WBC (Bld) [Ratio] 0.0 /[address] [facility] Comment on above: Order Comment: Speci men Type: BLOOD SPECIMENOrdering Facility: [facility] Address: [address] [address] Performed By: #### 5 7021-8 ####[facility] LABORATORYCLIA [id number] [address] [place] Platelet mean volume (Bld) [Entitic vol] 9.7 fL Normal 9.0-12.7 [facility] Comment on above: Order Comment: Speci men Type: BLOOD SPECIMENOrdering Facility: [facility] Address: [address] [place] [address] Performed By: #### 5 7021-8 ####[facility] LABORATORYCLIA [id number] [address] [place] Platelets (Bld) [#/Vol] 373 10*3/uL Normal 150-400 [facility] Comment on above: Order Comment: Speci men Type: BLOOD SPECIMENOrdering Facility: [facility] Address: [address] [place] [address] Performed By: #### 5 7021-8 ####[facility] LABORATORYCLIA [id number] [place] [address] [place] [place] Platelets Estimate (Bld) [#/Vol] Adequate Normal [facility] Comment on above: Order Comment: Speci men Type: BLOOD SPECIMENOrdering Facility: [facility] Address: [address] [place] [address] Performed By: #### 5 7021-8 ####[facility] LABORATORYCLIA [id number] [address] STATES OF [facility] PROMYL% 1.0 % Normal [facility] Comment on above: Order Comment: Speci men Type: BLOOD SPECIMENOrdering Facility: [facility] Address: [address] [place] [address] Performed By: #### 5 7021-8 ####[facility] LABORATORYCLIA [id number] [address] RBC (Bld) [#/Vol] 3.77 10*6/uL Low 3.90-5.20 [facility] Comment on above: Order Comment: Speci men Type: BLOOD SPECIMENOrdering Facility: [facility] Address: [address] [place] [address] Performed By: #### 5 7021-8 ####[facility] LABORATORYCLIA [id number] [address] RED CELL MORPH Normal Normal [facility] Comment on above: Order Comment: Speci men Type: BLOOD SPECIMENOrdering Facility: [facility] Address: [address] [place] [address] Performed By: #### 5 7021-8 ####[facility] LABORATORYCLIA [id number] [address] SPHEROCYTES Few Normal [facility] Comment on above: Order Comment: Speci men Type: BLOOD SPECIMENOrdering Facility: [facility] Address: [address] [place] [address] Performed By: #### 5 7021-8 ####[facility] LABORATORYCLIA [id number] [address] OF [place] WBC (Bld) [#/Vol] 15.82 10*3/uL High 3.70-11.00 [facility] Comment on above: Order Comment: Speci men Type: BLOOD SPECIMENOrdering Facility: [facility] Address: [address] [place] [address] Result Comment: Resu lts checked and verified. Performed By: #### 5 7021-8 ####[facility] LABORATORYCLIA [id number] [address] STATES [place] CBC panel Auto (Bld)on 06-16 Erythrocyte distribution width (RBC) [Ratio] 15.5 % High 11.5-15.0 [facility] Comment on above: Order Comment: Speci men Type: BLOOD SPECIMENOrdering Facility: [facility] Address: [address] [place] [address] Performed By: #### 5 8410-2 ####[facility] LABORATORYCLIA [id number] [address] STATES [place] Hematocrit (Bld) [Volume fraction] 30.1 % Low 36.0-46.0 [facility] Comment on above: Order Comment: Speci men Type: BLOOD SPECIMENOrdering Facility: [facility] Address: [address] [place] [address] Performed By: #### 5 8410-2 ####[facility] LABORATORYCLIA [id number] [address] [place] Hemoglobin (Bld) [Mass/Vol] 9.8 g/dL Low 11.5-15.5 [facility] Comment on above: Order Comment: Speci men Type: BLOOD SPECIMENOrdering Facility: [facility] Address: [address] [place] [address] Performed By: #### 5 8410-2 ####[facility] LABORATORYCLIA [id number] [address] [place] MCH (RBC) [Entitic mass] 30.8 pg Normal 26.0-34.0 [facility] Comment on above: Order Comment: Speci men Type: BLOOD SPECIMENOrdering Facility: [facility] Address: [address] [place] [address] Performed By: #### 5 8410-2 ####[facility] LABORATORYCLIA [id number] [address] STATES OF [facility] MCHC (RBC) [Mass/Vol] 32.6 g/dL Normal 30.5-36.0 [facility] Comment on above: Order Comment: Speci men Type: BLOOD SPECIMENOrdering Facility: [facility] Address: [address] [place] [address] Performed By: #### 5 8410-2 ####[facility] LABORATORYCLIA [id number] [address] OF [place] MCV (RBC) [Entitic vol] 94.7 fL Normal 80.0-100.0 [facility] Comment on above: Order Comment: Speci men Type: BLOOD SPECIMENOrdering Facility: [facility] Address: [address] [place] [address] Performed By: #### 5 8410-2 ####[facility] LABORATORYCLIA [id number] [address] OF [place] Nucleated RBC (Bld) [#/Vol] 0.08 10*3/uL High <0.01 [facility] Comment on above: Order Comment: Speci men Type: BLOOD SPECIMENOrdering Facility: [facility] Address: [address] [place] [address] Performed By: #### 5 8410-2 ####[facility] LABORATORYCLIA [id number] [address] [place] Platelet mean volume (Bld) [Entitic vol] 9.6 fL Normal 9.0-12.7 [facility] Comment on above: Order Comment: Speci men Type: BLOOD SPECIMENOrdering Facility: [facility] Address: [address] [place] [address] Performed By: #### 5 8410-2 ####[facility] LABORATORYCLIA [id number] [address] [place] Platelets (Bld) [#/Vol] 277 10*3/uL Normal 150-400 [facility] Comment on above: Order Comment: Speci men Type: BLOOD SPECIMENOrdering Facility: [facility] Address: [address] [place] [address] Performed By: #### 5 8410-2 ####[facility] LABORATORYCLIA [id number] [address] RBC (Bld) [#/Vol] 3.18 10*6/uL Low 3.90-5.20 [facility] Comment on above: Order Comment: Speci men Type: BLOOD SPECIMENOrdering Facility: [facility] Address: [address] [place] [address] Performed By: #### 5 8410-2 ####[facility] LABORATORYCLIA [id number] [address] WBC (Bld) [#/Vol] 10.43 10*3/uL Normal 3.70-11.00 [facility] Comment on above: Order Comment: Speci men Type: BLOOD SPECIMENOrdering Facility: [facility] Address: [address] [place] [address] Performed By: #### 5 8410-2 ####[facility] LABORATORYCLIA [id number] [address] CONSULTon 06-16-2022 CONSULT HNO ID: [id number] Author: Iman Saldana DO Service: General Surgery [...] or co (more content not included)... Normal [facility] CTA ABD/PEL/LOWER EXT W IVCO Non 06-16-2022 CTA ABD/PEL/LOWER EXT W IVCON * * *Final Report* * * DATE OF EXAM: Jun 16 2022 7:33AM [facility] 0122 - CTA ABD/PEL/LOWER EXT [...] lobe consolidation may represent pneumonia or atelectasis. Dynamite Reclaimer: DEVEN Transcribe Date/Time: Jun 16 2022 7:54A Dictated by : ESTHER MCKEON MD This examination was interpreted and the report reviewed and electronically signed by: ESTHER MCKEON MD on Jun 16 2022 8:22AM EST [id number] Normal [facility] Comprehensive metabolic 2000 panelon 06-16-2022 Albumin [Mass/Vol] 3.2 g/dL Low 3.9-4.9 [facility] Comment on above: Order Comment: Speci men Type: BLOOD SPECIMENOrdering Facility: [facility] Address: [address] [place] [address] Performed By: #### 3 3959-8, 16060-4, 32417-9, 96845-7 ####[facility] LABORATORYCLIA [id number] [place] [address] [place] ALP [Catalytic activity/Vol] 111 U/L Normal 34-123 [facility] Comment on above: Order Comment: Speci men Type: BLOOD SPECIMENOrdering Facility: [facility] Address: [address] [place] [address] Performed By: #### 3 3959-8, 73356-3, 69411-4, 94051-9 ####[facility] LABORATORYCLIA [id number] [address] [place] ALT With P-5'-P [Catalytic activity/Vol] 20 U/L Normal 7-38 [facility] Comment on above: Order Comment: Speci men Type: BLOOD SPECIMENOrdering Facility: [facility] Address: [address] [place] [address] Performed By: #### 3 3959-8, 55465-4, 88722-9, 52611-8 ####[facility] LABORATORYCLIA [id number] [address] [place] Anion gap [Moles/Vol] 17 mmol/L Normal 9-18 [facility] Comment on above: Order Comment: Speci men Type: BLOOD SPECIMENOrdering Facility: [facility] Address: [address] [place] [address] Performed By: #### 3 3959-8, 14712-2, 45933-0, 68589-6 ####[facility] LABORATORYCLIA [id number] [address] STATES OF [facility] AST With P-5'-P [Catalytic activity/Vol] 13 U/L Normal 13-35 [facility] Comment on above: Order Comment: Speci men Type: BLOOD SPECIMENOrdering Facility: [facility] Address: [address] [place] [address] Performed By: #### 3 3959-8, 08554-5, 82906-7, 59966-9 ####[facility] LABORATORYCLIA [id number] [place] [address] [place] Bilirubin [Mass/Vol] 0.3 mg/dL Normal 0.2-1.3 [facility] Comment on above: Order Comment: Speci men Type: BLOOD SPECIMENOrdering Facility: [facility] Address: [address] [place] [address] Performed By: #### 3 3959-8, 19593-0, 32064-8, 50773-3 ####[facility] LABORATORYCLIA [id number] [place] [id number] [place] Calcium [Mass/Vol] 9.1 mg/dL Normal 8.5-10.2 [facility] Comment on above: Order Comment: Speci men Type: BLOOD SPECIMENOrdering Facility: [facility] Address: [address] [place] [address] Performed By: #### 3 3959-8, 88867-1, 16289-8, 17206-9 ####[facility] LABORATORYCLIA [id number] [place] [address] [place] Chloride [Moles/Vol] 104 mmol/L Normal 97-105 [facility] Comment on above: Order Comment: Speci men Type: BLOOD SPECIMENOrdering Facility: [facility] Address: [address] [place] [address] Performed By: #### 3 3959-8, 12853-4, 27761-1, 23627-5 ####[facility] LABORATORYCLIA [id number] [place] [address] [place] CO2 [Moles/Vol] 18 mmol/L Low 22-30 [facility] Comment on above: Order Comment: Speci men Type: BLOOD SPECIMENOrdering Facility: [facility] Address: [address] [place] [address] Performed By: #### 3 3959-8, 11537-9, 65912-4, 88728-3 ####[facility] LABORATORYCLIA [id number] [place] [address] [place] Creatinine [Mass/Vol] 1.14 mg/dL High 0.58-0.96 [facility] Comment on above: Order Comment: Speci men Type: BLOOD SPECIMENOrdering Facility: [facility] Address: [address] [place] [address] Performed By: #### 3 3959-8, 74160-4, 35778-1, 82671-5 ####[facility] LABORATORYCLIA [id number] [place] [address] [place] ESTIMATED GLOMERULAR FILTRATION RATE 48 mL/min/1.73m??? Low >=60 [facility] Comment on above: Order Comment: Rhina mason Type: BLOOD SPECIMENOrdering Facility: [facility] Address: [address] [place], [place] [address] Result Comment: Isa mated Glomerular Filtration Rate [...] actual GFR. Performed By: #### 3 3959-8, 62262-3, 04736-8, 77519-4 ####[facility]ISCLIA [id number] [place] [address] [place] Glucose [Mass/Vol] 122 mg/dL High 74-99 [facility] Comment on above: Order Comment: Rhina mason Type: BLOOD SPECIMENOrdering Facility: [facility] Address: [address] [place] [address] Result Comment: The [place] [employer] (ADA) provides guidance for cutoff [...] Standards of Medical Care in Diabetes 2016, [place] [employer]. Diabetes Care. 2016.39(Suppl 1). Performed By: #### 3 3959-8, 10711-5, 99710-2, 33004-9 ####[facility] LABORATORYCLIA [id number] [place] [address] [place] Potassium [Moles/Vol] 4.4 mmol/L Normal 3.7-5.1 [facility] Comment on above: Order Comment: Rhina mason Type: BLOOD SPECIMENOrdering Facility: [facility] Address: [address] [place] [address] Performed By: #### 3 3959-8, 86890-9, 06016-6, 94968-1 ####[facility] LABORATORYCLIA [id number] [address] STATES OF [facility] Protein [Mass/Vol] 6.6 g/dL Normal 6.3-8.0 [facility] Comment on above: Order Comment: Speci men Type: BLOOD SPECIMENOrdering Facility: [facility] Address: [address] [place] [address] Performed By: #### 3 3959-8, 76726-4, 24907-9, 48778-4 ####[facility] LABORATORYCLIA [id number] [address] OF [facility] Sodium [Moles/Vol] 139 mmol/L Normal 136-144 [facility] Comment on above: Order Comment: Speci men Type: BLOOD SPECIMENOrdering Facility: [facility] Address: [address] [place] [address] Performed By: #### 3 3959-8, 06582-9, 94970-1, 19352-0 ####[facility] LABORATORYCLIA [id number] [address] STATES OF [facility] Urea nitrogen [Mass/Vol] 35 mg/dL High 7-21 [facility] Comment on above: Order Comment: Speci men Type: BLOOD SPECIMENOrdering Facility: [facility] Address: [address] [place] [address] Performed By: #### 3 3959-8, 09307-9, 76050-0, 98447-2 ####[facility] LABORATORYCLIA [id number] [address] [place] ED NOTEon 06-16-2022 ED NOTE HNO ID: [id number] Author: Adela Cortez RN Service: Emergency Medicine Author Type: Registered Nurse Type: ED Notes Filed: 06/16/2022 11:27 AM Note Text: Pts aptt is >139. Nongram states to hold dose and let MD know. Vascular resident kemi vásquez MD ordered to hold dose x1 hour and then redraw aptt. [facility] ED NOTE HNO ID: [id number] Author: Nancy Scott RN Service: Emergency Medicine Author Type: Registered Nurse Type: ED Notes Filed: 06/16/2022 7:13 AM Note Text: CT notified that pt has been moved to new room and is ready for testing [facility] ED NOTE HNO ID: [id number] Author: Marleen Blank RN Service: ? Author Type: Registered Nurse Type: ED Notes Filed: 06/16/2022 6:59 AM Note Text: Bed: 19-ED Expected date: Expected time: Means of arrival: Comments: [facility] ED NOTE HNO ID: [id number] Author: Nancy Scott RN Service: Emergency Medicine Author Type: Registered Nurse Type: ED Notes Filed: 06/16/2022 6:44 AM Note Text: CT delayed due to pt needing to move rooms because of bed bugs. [facility] ED NOTE HNO ID: [id number] Author: Nancy Scott RN Service: Emergency Medicine Author Type: Registered Nurse Type: ED Notes Filed: 06/16/2022 3:09 AM Note Text: CT form faxed, ptt sent [facility] ED NOTE HNO ID: [id number] Author: Nancy Scott RN Service: Emergency Medicine Author Type: Registered Nurse Type: ED Notes Filed: 06/16/2022 3:02 AM Note Text: US notified [facility] ED NOTE HNO ID: [id number] Author: Nancy Scott RN Service: Emergency Medicine Author Type: Registered Nurse Type: ED Notes Filed: 06/16/2022 2:48 AM Note Text: CT notified [facility] ED NOTE HNO ID: [id number] Author: Nancy Scott RN Service: Emergency Medicine Author Type: Registered Nurse Type: ED Notes Filed: 06/16/2022 2:43 AM Note Text: Labs sent [facility] ED NOTE HNO ID: [id number] Author: Davian Chen RN Service: ? Author Type: Registered Nurse Type: ED Notes Filed: 06/16/2022 2:06 AM Note Text: Bed: 15-ED Expected date: Expected time: Means of arrival: Comments: ramesh Barrett [facility] ED PROV NOTEon 06-16-2022 ED PROV NOTE HNO ID: [id number] Author: Vanessa Trevizo DO Service: Emergency Medicine [...] Abnormal; Notable (more content not included)... Normal [facility] ED PROV NOTE HNO ID: [id number] Author: Vanessa Trevizo DO Service: Emergency Medicine [...] diagnosis. Vanessa Trevizo DO 06/16/[address] [facility] EKGon 06-16-2022 Electrocardiogram Ventricular Rate : 1 13 BPM Atrial Rate : 122 BPM QRS Duration : 100 ms Q-T Interval : 282 ms QTC Calculation(Bazett) : 386 ms Calculated R [place] : 46 degrees Calculated T [place] : -40 degrees ATRIAL FIBRILLATION WITH RAPID VENTRICULAR RESPONSE ABNORMAL QRS-T ANGLE, CONSIDER PRIMARY T WAVE ABNORMALITY ABNORMAL ECG NO PREVIOUS ECGS AVAILABLE Confirmed by MD LEONE CAROL ([id number]) on 06/16/2022 6:43:12 PM NAME : MEL GUADARRAMA PID : [id number] : 1940 Gender : Female Race : ORD : Procedure Date : Jun 16 2022 07:37:07 Edit Date : Jun 16 2022 18:43:17 Diagnosis: ATRIAL FIBRILLATION WITH RAPID VENTRICULAR RESPONSE ABNORMAL QRS-T ANGLE, CONSIDER PRIMARY T WAVE ABNORMALITY ABNORMAL ECG NO PREVIOUS ECGS AVAILABLE Confirmed by MD LEONE CAROL ([id number]) on 06/16/2022 6:43:12 PM Test Reason : Location : 4 : [place] [address] Overread By : MD LEONE CAROL Edited By : MD LEONE CAROL Referred By : , Acquired by : PATRICIA MOE [facility] HIGH SENSITIVITY TROPONIN T (INITIAL)on 06-16-2022 HIGH SENSITIVITY CHRISTOPHER 34 ng/L High <12 [facility] Comment on above: Order Comment: Rhina mason Type: BLOOD SPECIMENOrdering Facility: [facility] Address: [address] [place] [phone] Result Comment: When assessing risk for acute [...] MACE. Performed By: #### 3 2355-0 #### [facility] CLIA [id number] [address] OF [facility] HIGH SENSITIVITY TROPONIN T (SECOND)on 06-16-2022 HIGH SENSITIVITY CHRISTOPHER 28 ng/L High <12 [facility] Comment on above: Order Comment: Rhina mason Type: BLOOD SPECIMENOrdering Facility: [facility] Address: [address] [place] [address] Result Comment: When assessing risk for acute [...] 30 day MACE. Performed By: #### L [id number] ####[facility] LABORATORYCLIA [id number] [address] HIGH SENSITIVITY TROPONIN T (THIRD) 3 HRS AFTER INITIALon 06-16-2022 HIGH SENSITIVITY CHRISTOPHER 23 ng/L High <12 [facility] Comment on above: Order Comment: Speci men Type: BLOOD SPECIMENOrdering Facility: [facility] Address: [address] [place] [address] Result Comment: When assessing risk for acute [...] 30 day MACE. Performed By: #### L [id number] ####[facility] LABORATORYCLIA [id number] [address] OF [facility] HISTORY PHYSICALon HISTORY PHYSICAL HNO ID: [id number] Author: Kristen Jones APRN.CNP Service: Hospital Medicine Author Type: Nurse Practitioner Type: HANDP Filed: 06/16/2022 1:27 PM Note Text: DEPARTMENT OF HOSPITAL MEDICINE HISTORY AND PHYSICAL EXAM SERVICE DATE: 06/16/2022 SERVICE TIME: 12:02 PM Primary Care Physician: Dr. Evans Admitting Provider: Kristen Jones APRN.CNP NIGHT AND WEEKEND COVERAGE: After 7pm, please call cross cover pager #[phone] Subjective CHIEF COMPLAINT: Left leg pain, discoloration [...] this patient has 2 charts. Mel Garcia [id number] and Mel Castillo [id number]. PAST MEDICAL HISTORY Diagnosis Date Acute bacterial [...] chest pain Gastrointestinal: + diarrhea x 1 [facility] [employer] Genitourinary: Denies dysuria Musculoskeletal: + left leg [...] or rh (more content not included)... Normal [facility] Magnesium SerPl-mCncon 06-16 Magnesium [Mass/Vol] 2.4 mg/dL High 1.7-2.3 [facility] Comment on above: Order Comment: Speci men Type: BLOOD SPECIMENOrdering Facility: [facility] Address: [address] [place] [address] Performed By: #### 3 3959-8, 54645-4, 92844-9, 27958-0 ####[facility] LABORATORYCLIA [id number] [address] NT-proBNP [facility] 06-16 Natriuretic peptide.B prohormone N-Terminal [Mass/Vol] 4156 pg/mL High <450 [facility] Comment on above: Order Comment: Specrobson mason Type: BLOOD SPECIMEN [facility] Address: [place] [address] Performed By: #### T SCR #### [facility] CLIA [id number] [address] NURSING PROGon 06-16-2022 NURSING PROG HNO ID: [id number] Author: Kayden José RN Service: Trauma Author [...] TO THE RECEIVING NURSE. NIKKY FRAGA. Normal [facility] PT panel Coag (PPP)on 2021 INR Coag (PPP) [Relative time] 1.1 {INR} Normal 0.9-1.3 [facility] Comment on above: Order Comment: Specrobson mason Type: BLOOD SPECIMENOrdering Facility: [facility] Address: [place] [address] Result Comment: Mayra min K Antagonist (VKA) Therapeutic Range: INR 2 to 3 (Target INR of 2.5) Note: For patients treated with VKA drugs, such as warfarin, the [place] [employer] 2012 Guideline recommends [...] Chest 2012, 141:7S-47S Daren RA, et al. [facility] 2017, 70: 252-289 Performed By: #### 3 4528-0, 34899-8 ####[facility] LABORATORYCLIA [id number] [address] OF [facility] PT Coag (PPP) [Time] 11.3 s Normal 9.7-13.0 [facility] Comment on above: Order Comment: Speci isabella Type: BLOOD SPECIMENOrdering Facility: [facility] Address: [address] [place] [address] Performed By: #### 3 4528-0, 75140-2 ####[facility]PITALSIA [id number] [address] Procalcitonin [facility] [address] Streeton 1 08-16-2021 Procalcitonin [Mass/Vol] 0.19 ng/mL High <0.09 [facility] Comment on above: Order Comment: Rhina mason Type: BLOOD SPECIMEN [facility] Address: [address] [place] [address] Result Comment: For a guided interpretation of test results, please visit the Change in Procalcitonin Calculator, [email or web address]. Performed By: #### T SCR #### [facility] CLIA [id number] [address] OF [facility] SARS-CoV-2 RNA Resp Ql OXANA+p robeon 06-16-2022 SARS-CoV-2 (COVID-19) RNA OXANA+probe Ql (Resp) COVID 19 RESULT: SARS-CoV-2 (Agent of COVID-19) Detected by RT-PCR or equivalent method. This test has been authorized by FDA under an Emergency Use Authorization (EUA). Normal [facility] Comment on above: Performed By: #### 9 4500-6 #### [facility] CLIA [id number] [address] [place] [address] [place] US DVT LOWER [...] Torres MD on 0516 via verbal communication. Dynamite Reclaimer: DEVEN Transcribe Date/Time: Jun 16 2022 5:07A Dictated by : SKIP NOEL MD This examination was interpreted and the report reviewed and electronically signed by: SKIP NOEL MD on Jun 16 2022 5:17AM EST [id number] Normal [facility] aPTT PPPon 06-16-2022 aPTT Coag (PPP) [Time] 74.2 s High 23.0-32.4 [facility] Comment on above: Order Comment: Speci men Type: BLOOD SPECIMENOrdering Facility: [facility] Address: [address] [place] [address] Performed By: #### 1 4979-9 ####[facility] LABORATORYCLIA [id number] [address] aPTT Coag (PPP) [Time] 134.7 s High 23.0-32.4 [facility] Comment on above: Order Comment: Speci men Type: BLOOD SPECIMENOrdering Facility: [facility] Address: [address] [place] [address] Performed By: #### 1 4979-9 ####[facility] LABORATORYCLIA [id number] [address] aPTT Coag (PPP) [Time] s High 23.0-32.4 [facility] Comment on above: Order Comment: Speci men Type: BLOOD SPECIMENOrdering Facility: [facility] Address: [address] [place] [address] Performed By: #### 1 4979-9 ####[facility] LABORATORYCLIA [id number] [address] aPTT Coag (PPP) [Time] 21.7 s Low 23.0-32.4 [facility] Comment on above: Order Comment: Speci men Type: BLOOD SPECIMENOrdering Facility: [facility] Address: [address] [place] [address] Performed By: #### 3 4528-0, 20017-4 ####[facility]ORATORYCLIA [id number] [address] OF [facility] CULTURE AND STAIN - TISSUEon 03-10-2020 CULTURE [...] 0.12 S Rifampin(AGATA) <= 0.5 S Normal [facility] Comment on above: Performed By: #### C XTIS #### [address] [id number] #### C/DAMIÁN #### [address] CR Finger(s) Min 2 Views Rig hton 03-07-2020 CR Finger(s) Min 2 Views Right Patient Name: MEL POP Diagnostic Radiology Exam Date/Time 03/06/2020 10:30:00 EDT Exam CR Finger(s) Min 2 Views Right Ordering Physician MD MCMAHAN DEREK J Accession Number [id number] CPT4 Codes 00657 () Reason For Exam pain Report Right [...] was communicated to JAYLA MCMAHAN via the Standard [employer] Critical Result system on 03/07/2020 8:07 PM EDT, Message ID [id number]. Report Dictated on Final Dictating Physician: MD PERRY DIANE Signed Date and Time: 03/07/2020 8:07 pm Signed by: MD PERRY DIANE Transcribed Date and Time: 03/07/2020 8:08 Normal [facility] CULTURE ANAEROBEon 0 CULTURE ANAEROBE CULTURE ANAEROBE --> Status: F No growth of anaerobes at 5 days. STAIN GRAM --> Status: F Few polymorphonuclear cells/lpf. No organisms seen. No organisms seen. Normal [facility] Comment on above: Performed By: #### C XTIS #### [address] [id number] #### C/DAMIÁN #### [address] Vital Signs Date Time Vital Sign Value Performing Clinician Facility 12-24-2024 14:45-0400 Body mass index (BMI) [Ratio] 27.1 kg/m2 Kristyn Blankenship MD Work Phone: [facility] 12-24-2024 14:45-0400 Body weight 69.4 kg Kristyn Blankenship MD Work Phone: [facility] [employer] 12-05-2024 10:20-0400 Body height 160 cm Kristyn Blankenship MD Work Phone: [facility] [employer] 12-05-2024 10:20-0400 Body mass index (BMI) [Ratio] 29.23 kg/m2 Kristyn Blankenship MD Work Phone: [facility] [employer] 12-05-2024 10:20-0400 Body weight 74.84 kg Kristyn Blankenship MD Work Phone: [facility] [employer] 12-05-2024 10:20-0400 Diastolic blood pressure 78 mm[Hg] Kristyn Blankenship MD Work Phone: [facility] 12-05-2024 10:20-0400 Heart rate 78 /min Kristyn Blankenship MD Work Phone: [facility] [employer] 12-05-2024 10:20-0400 Respiratory rate 18 /min Kristyn Blankenship MD Work Phone: [facility] [employer] 12-05-2024 10:20-0400 SaO2% (BldA) [Mass fraction] 94 % Kristyn Blankenship MD Work Phone: [facility] [employer] 12-05-2024 10:20-0400 Systolic blood pressure 102 mm[Hg] Kristyn Blankenship MD Work Phone: [facility] [employer] 11-22-2024 13:45-0400 Diastolic blood pressure 54 mm[Hg] Kristyn Blankenship MD Work Phone: [facility] [employer] 11-22-2024 13:45-0400 Heart rate 58 /min Kristyn Blankenship MD Work Phone: [facility] [employer] 11-22-2024 13:45-0400 Respiratory rate 18 /min Kristyn Blankenship MD Work Phone: [facility] [employer] 11-22-2024 13:45-0400 SaO2% (BldA) [Mass fraction] 95 % Kristyn Blankenship MD Work Phone: [facility] [employer] 11-22-2024 13:45-0400 Systolic blood pressure 139 mm[Hg] Kristyn Blankenship MD Work Phone: [facility] [employer] 11-22-2024 13:15-0400 Body temperature 97.11 [degF] Kristyn Blankenship MD Work Phone: [facility] [employer] 11-22-2024 08:25-0400 Body height 160 cm Kristyn Blankenship MD Work Phone: [facility] [employer] 11-22-2024 08:25-0400 Body mass index (BMI) [Ratio] 29.23 kg/m2 Kristyn Blankenship MD Work Phone: [facility] [employer] 11-22-2024 08:25-0400 Body weight 74.84 kg Kristyn Blankenship MD Work Phone: [facility] [employer] 11-05-2024 15:42-0400 Body height 160 cm Kristyn Blankenship MD Work Phone: [facility] [employer] 11-05-2024 15:42-0400 Body mass index (BMI) [Ratio] 29.23 kg/m2 Kristyn Blankenship MD Work Phone: [facility] [employer] 11-05-2024 15:42-0400 Body weight 74.84 kg Kristyn Blankenship MD Work Phone: [facility] [employer] 11-05-2024 15:42-0400 Diastolic blood pressure 64 mm[Hg] Kristyn Blankenship MD Work Phone: [facility] [employer] 11-05-2024 15:42-0400 Heart rate 65 /min Kristyn Blankenship MD Work Phone: [facility] [employer] 11-05-2024 15:42-0400 Respiratory rate 18 /min Kristyn Blankenship MD Work Phone: [facility] [employer] 11-05-2024 15:42-0400 SaO2% (BldA) [Mass fraction] 98 % Kristyn Blankenship MD Work Phone: [facility] [employer] 11-05-2024 15:42-0400 Systolic blood pressure 122 mm[Hg] Kristyn Blankenship MD Work Phone: [employer] 08-22-2024 10:32-0500 Body height 160 cm Henok Walkeron PA-C Work Phone: [employer] 08-22-2024 10:32-0500 Body mass index (BMI) [Ratio] 29.23 kg/m2 Henok Walkeron PA-C Work Phone: [employer] 08-22-2024 10:32-0500 Body weight 74.84 kg Henok Walkeron PA-C Work Phone: [employer] 08-22-2024 10:32-0500 Diastolic blood pressure 62 mm[Hg] Henok Walkeron PA-C Work Phone: [employer] 08-22-2024 10:32-0500 Respiratory rate 18 /min Henok Walkeron PA-C Work Phone: [employer] 08-22-2024 10:32-0500 Systolic blood pressure 104 mm[Hg] Henok Walkeron PA-C Work Phone: [employer] 08-16-2024 07:19-0500 Body temperature 97.59 [degF] Mariana King DO Work Phone: [employer] 08-16-2024 07:19-0500 Diastolic blood pressure 66 mm[Hg] Mariana King DO Work Phone: [employer] 08-16-2024 07:19-0500 Heart rate 85 /min Mariana King DO Work Phone: [employer] 08-16-2024 07:19-0500 Respiratory rate 18 /min Marinaa King DO Work Phone: [employer] 08-16-2024 07:19-0500 SaO2% (BldA) [Mass fraction] 94 % Mariana King DO Work Phone: [employer] 08-16-2024 07:19-0500 Systolic blood pressure 135 mm[Hg] Mariana King DO Work Phone: [employer] 08-03-2024 08:32-0500 Body height 162 cm Mariana King DO Work Phone: [employer] 08-03-2024 08:32-0500 Body mass index (BMI) [Ratio] 28.58 kg/m2 Mariana King DO Work Phone: [employer] 08-03-2024 08:32-0500 Body weight 75 kg Mariana King DO Work Phone: [employer] 07-07-2024 06:03-0500 Body temperature 97.7 [degF] Wm Aracelirakola DO Work Phone: [employer] 07-07-2024 06:03-0500 Diastolic blood pressure 67 mm[Hg] Wm Mudrakola DO Work Phone: [employer] 07-07-2024 06:03-0500 Heart rate 69 /min Mw Mudrakola DO Work Phone: [employer] 07-07-2024 06:03-0500 Respiratory rate 12 /min Wm Aracelirakola DO Work Phone: [employer] 07-07-2024 06:03-0500 SaO2% (BldA) [Mass fraction] 94 % Wm Mudrakola DO Work Phone: [employer] 07-07-2024 06:03-0500 Systolic blood pressure 149 mm[Hg] Wm Mudrakola DO Work Phone: [employer] 07-05-2024 10:00-0500 Body height 162.6 cm Wm Aracelirakola DO Work Phone: [employer] 07-05-2024 10:00-0500 Body mass index (BMI) [Ratio] 27.46 kg/m2 Wm Aracelirakola DO Work Phone: [employer] 07-05-2024 10:00-0500 Body weight 72.58 kg Wm Aracelirakola DO Work Phone: [employer] 05-14-2024 15:34-0400 Body height 162.6 cm Jared Evans MD Work Phone: [employer] 05-14-2024 15:34-0400 Body mass index (BMI) [Ratio] 25.23 kg/m2 Jared Evans MD Work Phone: [facility] [employer] 05-14-2024 15:34-0400 Body weight 66.68 kg Jared Evans MD Work Phone: [employer] 04-25-2024 13:39-0400 Body height 162.6 cm Henok Hernandez PA-C Work Phone: [employer] 04-25-2024 13:39-0400 Body mass index (BMI) [Ratio] 25.23 kg/m2 Henok Hernandez PA-C Work Phone: [employer] 04-25-2024 13:39-0400 Body weight 66.68 kg Henok Hernandez PA-C Work Phone: [facility] [employer] 04-25-2024 13:39-0400 Diastolic blood pressure 66 mm[Hg] Henok Hernandez PA-C Work Phone: [facility] [employer] 04-25-2024 13:39-0400 Heart rate 98 /min Henok Hernandez PA-C Work Phone: [facility] [employer] 04-25-2024 13:39-0400 Respiratory rate 18 /min Henok Hernandez PA-C Work Phone: [employer] 04-25-2024 13:39-0400 SaO2% (BldA) [Mass fraction] 95 % Henok Hernandez PA-C Work Phone: [employer] 04-25-2024 13:39-0400 Systolic blood pressure 110 mm[Hg] Henok Hernandez PA-C Work Phone: [facility] [employer] 04-13-2024 08:04-0400 Heart rate 92 /min Winifred Cornell DO Work Phone: [employer] 04-13-2024 07:49-0400 Body temperature 97.2 [degF] Winifred Cornell DO Work Phone: [employer] 04-13-2024 07:49-0400 Diastolic blood pressure 89 mm[Hg] Winifred Cornell DO Work Phone: [employer] 04-13-2024 07:49-0400 Respiratory rate 20 /min Winifred Cornell DO Work Phone: [employer] 04-13-2024 07:49-0400 SaO2% (BldA) [Mass fraction] 98 % Winifred Cornell DO Work Phone: [employer] 04-13-2024 07:49-0400 Systolic blood pressure 156 mm[Hg] Winifred Cornell DO Work Phone: [employer] 04-03-2024 17:52-0400 Body height 162.6 cm Winifred Cornell DO Work Phone: [employer] 04-03-2024 17:52-0400 Body mass index (BMI) [Ratio] 27.38 kg/m2 Winifred Cornell DO Work Phone: [employer] 04-03-2024 17:52-0400 Body weight 72.35 kg Winifred Cornell DO Work Phone: [employer] 07-27-2023 14:23-0500 Body height 162.6 cm Ming Weinberg MD Work Phone: [employer] 07-27-2023 14:23-0500 Body mass index (BMI) [Ratio] 27.29 kg/m2 Ming Weinberg MD Work Phone: [facility] [employer] 07-27-2023 14:23-0500 Body weight 72.12 kg Mnig Weinberg MD Work Phone: [facility] [employer] 05-14-2022 15:01-0400 Diastolic blood pressure 84 mm[Hg] Jared Velazquez PA-C Work Phone: [facility] 05-14-2022 15:01-0400 Systolic blood pressure 154 mm[Hg] Jared Velazquez PA-C Work Phone: [facility] 05-14-2022 14:32-0400 Body height 162.6 cm Jared Velazquez PA-C Work Phone: [facility] 05-14-2022 14:32-0400 Body weight 72.58 kg Jared Velazquez PA-C Work Phone: [facility] 05-14-2022 14:32-0400 Heart rate 71 /min Jared Velazquez PA-C Work Phone: [facility] 05-14-2022 14:32-0400 Respiratory rate 16 /min Jared Velazquez PA-C Work Phone: [facility] 05-14-2022 14:32-0400 SaO2% (BldA) [Mass fraction] 98 % Jared Velazquez PA-C Work Phone: [facility] 03-07-2020 09:57-0400 Body Temperature 98.71 [degF] [employer] [employer], [place] 03-07-2020 09:57-0400 BP Diastolic 64 mm[Hg] [facility] [place] 03-07-2020 09:57-0400 BP Systolic 161 mm[Hg] [employer] 03-07-2020 09:57-0400 Pulse (Heart Rate) 77 /min [facility] [place] 03-07-2020 09:57-0400 Pulse Oximetry 96 % [facility] [place] 03-07-2020 08:32-0400 Respiratory Rate 14 /min [employer] [place] 02-08-2020 20:50-0400 Body Temperature 97.5 [degF] [employer] [place] 02-08-2020 20:50-0400 BP Diastolic 81 mm[Hg] [facility] [employer] [place] , [place] 02-08-2020 20:50-0400 BP Systolic 193 mm[Hg] [facility] [employer] [place] 02-08-2020 20:50-0400 Pulse (Heart Rate) 68 /min [employer] [place] 02-08-2020 20:50-0400 Pulse Oximetry 97 % [facility] [place] , [place] 02-08-2020 20:50-0400 Respiratory Rate 16 /min [facility] [place] Encounters Encounter Date Encounter Type Care Provider Facility Start: 01-31-2025 ambulatory Megan Montoya O[facility] Faci lity:[facility] Start: 01-28-2025 ambulatory Megan Riveroros OLS Faci lity:[facility] Start: 01-25-2025 ambulatory Megan Riveroros OLS Faci lity:[facility] Start: 01-23-2025 ambulatory Megan Riveroros OLS Faci lity:[facility] Start: 01-22-2025 ambulatory Megan Stroudsaros OLS Faci lity:[facility] Start: 01-21-2025 ambulatory Megan Stroudsaros OLS Faci lity:[facility] Start: 01-17-2025 ambulatory Megan Stroudsaros OLS Faci lity:[facility] Start: 01-16-2025 ambulatory Megan Stroudsaros OLS Faci lity:[facility] Start: 01-15-2025 ambulatory Megan Stroudsaros OLS Faci lity:[facility] Start: 01-07-2025 ambulatory Megan Stroudsaros OLS Faci lity:[facility] Start: 01-02-2025 End: 01-02-2025 Orders Only Namrata Christensen Ophthalmology Comment on above: 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) Right retinal detach ment (Primary Dx); Hemorrhagic choroidal detachment of right eye; Pseudophakia, right eye Start: 12-24-2024 End: 12-24-2024 ambulatory KRISTYN BLANKENSHIP [facility] Start: 12-24-2024 End: 12-24-2024 Office outpatient visit 15 minutes Kristyn Blankenship MD Work Phone: [facility] Comment on above: Aftercare following surgery of the circulatory system (Primary Dx); PAD (peripheral artery disease) (HCC) Start: 12-13-2024 End: 12-13-2024 ambulatory MEGAN MONTOYA [facility] Start: 12-13-2024 End: 12-13-2024 Subsequent hospital visit by physician Kristyn Blankenship MD Work Phone: [facility] V[facility] Lab Comment on above: Skin ulcer of toe of right foot, limited to breakdown of skin (HCC); PAD (peripheral artery disease) (HCC); Aftercare following surgery of the circulatory system Start: 12-05-2024 End: 12-05-2024 ambulatory [facility] Start: 12-05-2024 End: 12-05-2024 Office outpatient visit 10 minutes [facility] Comment on above: Skin ulcer of toe of right foot, limited to breakdown of skin (HCC) (Primary Dx); PAD (peripheral artery disease) (HCC); Aftercare following surgery of the circulatory system Start: 11-22-2024 End: 11-22-2024 ambulatory [facility] Start: 11-22-2024 End: 11-22-2024 Subsequent hospital visit by physician Kristyn Blankenship MD Work Phone: [facility] Start: 11-15-2024 End: 11-15-2024 ambulatory Megan EVERETT Facility:[facility] Start: 11-09-2024 End: 11-13-2024 ambulatory Henok Santizo PA-C Work Phone: [facility] Comment on above: 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) (Primary Dx) Pre-op evaluation (P rimary Dx) Start: 11-09-2024 End: 11-13-2024 Preprocedural examination done Henok Santizo PA-C Work Phone: [employer] Work Phone: Start: 11-05-2024 End: 11-05-2024 ambulatory [facility] Start: 11-05-2024 End: 11-05-2024 Office outpatient visit 25 minutes Kristyn Blankenship MD Work Phone: [facility] [employer] Comment on above: PAD (peripheral aidee ry disease) (HCC) (Primary Dx); Skin ulcer of toe of right foot, limited to breakdown of skin (HCC) Start: 10-08-2024 End: 10-08-2024 ambulatory Megan EVERETT [facility] Work Phone: Start: 10-08-2024 End: 10-08-2024 Departed Referred Megan Vegauary [facility] [employer] Start: 10-08-2024 Registered Referred Megan Farrelluary [employer] Start: 10-08-2024 End: 10-08-2024 ambulatory Megan EVERETT Facility:[facility] Start: 10-01-2024 End: 10-01-2024 Patient encounter procedure Savana Lopez MD Work Phone: Ophthalmology Comment on above: 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); Right retinal detachment; Postoperative eye state; Pseudophakia, right eye; Subluxation of right lens Start: 10-01-2024 End: 10-01-2024 ambulatory SAVANA Khalil MAMMO Facility:[facility] Start: 09-17-2024 End: 09-17-2024 ambulatory Megan EVERETT [facility] Work Phone: Start: 09-17-2024 End: 09-17-2024 Departed Referred Megan Vegauary [employer] Start: 09-17-2024 Registered Referred Megan Farrelluary [employer] Start: 09-17-2024 End: 09-17-2024 ambulatory Megan EVERETT Facility:[facility] Start: 09-10-2024 End: 09-10-2024 ambulatory Megan EVERETT [facility] Work Phone: Start: 09-10-2024 End: 09-10-2024 Departed Referred Megan Vegauary [employer] [facility] Start: 09-10-2024 Registered Referred Megan Farrelluary [employer] Start: 09-10-2024 End: 09-10-2024 ambulatory Megan EVERETT Facility:[facility] Start: 09-05-2024 End: 09-05-2024 ambulatory SAVANA Khalil MAMMO Facility:[facility] Start: 09-05-2024 End: 09-05-2024 Patient encounter procedure Savana Lopez MD Work Phone: Ophthalmology Comment on above: Postoperative eye st ate; Hemorrhagic choroidal detachment of right eye; Pseudophakia, right eye; Subluxation of right lens Start: 09-03-2024 End: 09-03-2024 ambulatory Megan EVERETT [facility] Work Phone: Start: 09-03-2024 End: 09-03-2024 Departed Referred Megan Montoya [facility] Start: 09-03-2024 Registered Referred Megan Montoya [facility] Start: 09-03-2024 End: 09-03-2024 ambulatory Megan EVERETT Facility:[facility] Start: 08-22-2024 End: 08-22-2024 ambulatory [facility] Start: 08-22-2024 End: 08-22-2024 Office outpatient visit 15 minutes Henok Santizo PA-C Work Phone: [facility] Comment on above: Acute deep vein thro mbosis (DVT) of iliac vein of right lower extremity (HCC) (Primary Dx); PAD (peripheral artery disease) ([facility]) Start: 08-20-2024 End: 08-20-2024 ambulatory Megan EVERETT [facility] Work Phone: Start: 08-20-2024 End: 08-20-2024 Departed Referred Megan Montoya [facility] Start: 08-20-2024 End: 08-20-2024 ambulatory Megan EVERETT Facility:[facility] Start: 08-03-2024 End: 08-03-2024 Subsequent hospital visit by physician [facility] Exam Room [facility] Comment on above: Arrived Start: 08-03-2024 End: 08-16-2024 ambulatory [facility] Start: 08-03-2024 End: 08-16-2024 Emergency department patient visit Mariana King DO Work Phone: [facility] Comment on above: Aspiration pneumonit is (CMS/HCC) (HCC) (Primary Dx); Vomiting and diarrhea; LORENZA (acute kidney injury) ([facility]) Start: 08-01-2024 End: 08-01-2024 ambulatory SAVANA A MAMMO Facility:[facility] Start: 08-01-2024 End: 08-01-2024 Patient encounter procedure [...] Start: 07-27-2024 ambulatory SAVANA A MAMMO Facility: [facility] Start: 07-23-2024 End: 07-23-2024 ambulatory SAVANA A MAMMO Facility:[facility] Start: 07-23-2024 End: 07-23-2024 Patient encounter procedure [...] 07-12-2024 Evaluation and management of inpatient SELF Facility:[facility] Start: 07-12-2024 End: 07-12-2024 Orders Only Namrata [...] 07-09-2024 Evaluation and management of inpatient SELF Facility:[facility] Start: 07-09-2024 End: 07-09-2024 Unlisted evaluation and [...] 07-18-2024 Evaluation and management of inpatient RED MIKHAIL DEVIN Facility:[facility] Start: 07-07-2024 Emergency department patient visit PROVIDER NOT IN SYSTEM Facility:[facility] Start: 07-06-2024 End: 07-06-2024 Telephone encounter Ryan Elizondo MD Work Phone: Ophthalmology Start: 07-05-2024 End: 07-07-2024 ambulatory [facility] Start: 07-05-2024 End: 07-07-2024 Emergency department patient visit Wm Nunes DO Work Phone: [facility] Tra[facility] Neuro Progressive [facility] Unit PCU 3W Comment on above: Vision loss of right eye (Primary Dx); Acute intractable headache, unspecified headache type; Visual disturbance, subjective Start: 06-19-2024 End: 07-03-2024 ambulatory DEVIKA LEUNG Facility:[facility] Start: 06-19-2024 End: 07-03-2024 Subsequent hospital visit by physician Devika Leung DO Work Phone: [facility] Comment on above: [I63.9] - Cerebral i nfarction Start: 06-10-2024 End: 06-19-2024 Evaluation and management of inpatient TORSTEN SILVA Facility:[facility] Start: 05-22-2024 End: 05-22-2024 ambulatory [facility] Start: 05-21-2024 End: 05-21-2024 ambulatory [facility] Start: 05-21-2024 End: 05-21-2024 Anticoagulant drug monitoring Harmony Grey [facility] Work Phone: [facility]tico[facility] Management [facility] Comment on above: Atrial fibrillation, unspecified type (HCC); Acute venous embolism and thrombosis of deep vessels of proximal end of right lower extremity (HCC) Start: 05-14-2024 End: 05-14-2024 Subsequent hospital visit by physician Jared Evans MD Work Phone: [facility] Non-Invasive Cardiology Comment on above: Paroxysmal atrial fi brillation (HCC) Start: 05-14-2024 End: 05-14-2024 ambulatory [facility] Start: 05-09-2024 End: 05-09-2024 ambulatory [facility] Start: 05-09-2024 End: 05-09-2024 Anticoagulant drug monitoring Patty Pattie [facility] Work Phone: [facility] Comment on above: Atrial fibrillation, unspecified type (HCC); Acute venous embolism and thrombosis of deep vessels of proximal end of right lower extremity (HCC) Start: 05-01-2024 End: 05-01-2024 ambulatory [facility] Start: 05-01-2024 End: 05-01-2024 Anticoagulant drug monitoring Won Tipton RN [facility] Comment on above: Atrial fibrillation, unspecified type (HCC); Acute venous embolism and thrombosis of deep vessels of proximal end of right lower extremity (HCC) Start: 04-27-2024 End: 04-27-2024 Refill Phyllis Aguilera RN Work Phone: [facility] Comment on above: Deep vein thrombosis (DVT) of lower extremity, unspecified chronicity, unspecified laterality, unspecified vein (HCC); Atrial fibrillation, unspecified type (HCC); Acute venous embolism and thrombosis of deep vessels of proximal end of right lower extremity (HCC) Start: 04-25-2024 End: 04-25-2024 Office outpatient visit 15 minutes Henok Hernandez PA-C Work Phone: [facility] [place] Comment on above: Acute deep vein thro mbosis (DVT) of iliac vein of right lower extremity (HCC) (Primary Dx); PAD (peripheral artery disease) (HCC) Start: 04-25-2024 End: 04-25-2024 ambulatory HENOK SANTIZO [facility] Start: 04-23-2024 End: 04-23-2024 ambulatory JARED EVANS [facility] Start: 04-20-2024 End: 07-20-2024 Transcribe Orders Jared Evans MD Work Phone: [facility] Central Scheduling Comment on above: Paroxysmal atrial fi brillation (HCC) (Primary Dx) Start: 04-19-2024 End: 04-19-2024 ambulatory JAREDRAMAN EVANS [facility] Start: 04-19-2024 End: 04-19-2024 Anticoagulant drug monitoring Marybeth Rah[facility]tico[facility] Management Service Comment on above: Atrial fibrillation, unspecified type (HCC); Acute venous embolism and thrombosis of deep vessels of proximal end of right lower extremity (HCC) Start: 04-16-2024 End: 04-16-2024 ambulatory ANTHONY YEE [facility] Start: 04-14-2024 End: 04-14-2024 Anticoagulant drug monitoring Ulices Orr PharmD [facility] Pharm[facility] Comment on above: Deep vein thrombosis (DVT) of lower extremity, unspecified chronicity, unspecified laterality, unspecified vein (HCC) (Primary Dx) Start: 04-03-2024 End: 04-13-2024 Evaluation and management of inpatient Winifred Cornell DO Work Phone: [facility] Medical Unit 4N Comment on above: Ischemic leg (Primar y Dx); Right leg pain; Peripheral arterial disease (HCC); Right leg weakness; Atrial fibrillation, unspecified type (HCC) Start: 07-27-2023 End: 07-27-2023 Office outpatient new 30 minutes Ming Weinberg MD Work Phone: [facility] Comment on above: 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) Start: 06-15-2023 End: 06-15-2023 Subsequent hospital visit by physician Jared Evans MD Work Phone: [facility] MRI Comment on above: Abnormal findings on diagnostic imaging of other specified body structures; Pain in left leg Start: 06-01-2023 Transcribe Orders Jared Evans MD Work Phone: [facility] Comment on above: Abnormal findings on diagnostic imaging of other specified body structures (Primary Dx); Pain in left leg Start: 05-24-2023 End: 05-24-2023 Subsequent hospital visit by physician Jared Evans MD Work Phone: [facility] US Comment on above: Other specified soft tissue disorders Start: 05-23-2023 Transcribe Orders Jared Evans MD Work Phone: [facility] Comment on above: Other specified soft tissue disorders (Primary Dx) Start: 03-08-2023 End: 03-08-2023 Subsequent hospital visit by physician Jared Evans MD Work Phone: [facility] CT Comment on above: Localized swelling, mass and lump, neck Start: 02-28-2023 Transcribe Orders Jared Evans MD Work Phone: [facility] Comment on above: Localized swelling, mass and lump, neck (Primary Dx) Start: 02-22-2023 End: 02-22-2023 Subsequent hospital visit by physician Jarde Evans MD Work Phone: [facility] US Comment on above: Localized swelling, mass and lump, neck Start: 02-17-2023 Transcribe Orders Jared Evans MD Work Phone: [facility] Comment on above: Localized swelling, mass and lump, neck (Primary Dx) Start: 07-06-2022 Telephone encounter Inés Tubbs RN NOC Comment on above: Follow Up Phone Call (All Clear) Start: 06-21-2022 End: 06-21-2022 Evaluation and management of inpatient SIM ELIZABETH Facility:[facility] Start: 06-19-2022 ambulatory Tamara Olivares [facility] [place] [address] CARD/HF/PD Start: 06-16-2022 End: 06-29-2022 Evaluation and management of inpatient BERNIE MANE Facility:[facility] Start: 05-27-2022 Telephone encounter Jared pennington [...] 02-08-2020 Emergency department patient visit Mary[facility] ED Comment on above: Felon of [...] Start: 08-05-2024 Comprehensive metabo lic panel Shivani ARIZMENDI-C Work Phone: Start: 08-05-2024 Comprehensive metabo lic panel Shivani ARIZMENDI-C Work Phone: Start: 08-04-2024 Comprehensive metabo lic panel Shivani ARIZMENDI-C Work Phone: Start: 08-03-2024 Iadna-dna/rna gi pth gn multiplex probe tq 12- Shivani Dimas UGO-C Work Phone: Start: 08-03-2024 Basic metabolic pane l calcium total Shivani ARIZMENDI-C Work Phone: Start: 08-03-2024 Basic metabolic pane l calcium ionized Mariana Eduardo DO Work Phone: Start: 08-03-2024 Ct abdomen [...] Start: 07-02-2024 Blood count complete automated Devika Leung DO Work Phone: Start: 06-28-2024 Blood count complete automated Devika A Madhu DO Work Phone: Start: 06-27-2024 Assay of ferritin Azar Burk MD Work Phone: Start: 06-25-2024 Blood count complete automated Devika Leung DO Work Phone: Start: 06-21-2024 Basic metabolic pane l calcium total Devika Leung DO Work Phone: Start: 06-10-2024 Thyrotropin [Units/v [...] 04-08-2024 Thromboplastin time partial plasma/whole blood Pratibha Avelar DO Work Phone: Start: 04-08-2024 Thromboplastin time partial plasma/whole blood Pratibha Avelar DO Work Phone: Start: 04-08-2024 Basic metabolic pane l calcium total Robert Vigil MD Work Phone: Start: 04-07-2024 Thromboplastin time partial plasma/whole blood Pratibha Avelar DO Work Phone: Start: 04-07-2024 Basic metabolic pane l calcium total Robert Vigil MD Work Phone: Start: 04-06-2024 Thromboplastin time partial plasma/whole blood Pratibha Avelar DO Work Phone: Start: 04-06-2024 FL GUIDANCE OR USE O NLY - NON-RESULTABLE Kristyn Blankenship MD Work Phone: Start: 04-06-2024 Antibody screen JARED EVANS Comment on above: Performed By: #### L [id number] ####Patient Services Technician: VELMA VALADEZ ([phone])[facility] ([facility])[address] [place] [address] Start: 04-06-2024 Blood typing serologic abo Kristyn Blankenship MD Work Phone: Start: 04-06-2024 End: 04-06-2024 Prq transluminal mechanical thrombectomy vein Kristyn Blankenship MD Work Phone: Start: 04-06-2024 Basic metabolic pane l calcium total Robert Vigil MD Work Phone: Start: 04-05-2024 Prothrombin time Ryan Valdez MD Work Phone: Start: 04-05-2024 Thromboplastin time partial plasma/whole blood Pratibha Avelar DO Work Phone: Start: 04-05-2024 End: 04-05-2024 Basic metabolic panel calcium total Robert Vigil MD Work Phone: Start: 04-04-2024 Thromboplastin time partial plasma/whole blood Pratibha Avelar DO Work Phone: Start: 04-04-2024 Thromboplastin time partial plasma/whole blood Pratibha Avelar DO Work Phone: Start: 04-04-2024 Non-invasive physiol ogic study extremity 3 valentinals Selene Naik MD Work Phone: Start: 04-04-2024 Dup-scan xtr veins c omplete bilateral study Pratibha Avelar DO Work Phone: Start: 04-04-2024 Basic metabolic pane l calcium total Pratibha Avelar DO Work Phone: Start: 04-04-2024 Thromboplastin time partial plasma/whole blood Pratibha Avelar DO Work Phone: Start: 04-03-2024 Thromboplastin time partial plasma/whole blood Pratibha Avelar DO Work Phone: Start: 04-03-2024 Cta abdl aorta&bi il iofem w/contrast&postp Berine Cutler RRT - BUSINESS EM[employer]OY[employer] SPECIALIST Work Phone: Start: 04-03-2024 Ct head/brain w/o co ntrast material Bernie Cutler RRT - BUSINESS EMPLOYMENT SPECIALIST Work Phone: Start: 04-03-2024 Comprehensive metabo lic panel Bernie Doner RRT - BUSINESS EMPLOYMENT SPECIALIST Work Phone: Start: 04-03-2024 Ecg routine ecg w/le ast 12 lds trcg only w/o i&r Bernie Doner RRT - BUSINESS EMPLOYMENT SPECIALIST Work Phone: Start: 06-15-2023 Mri lower extrem oth /thn jt w/o & w/contr matr Jared Evans MD Work Phone: Start: 05-24-2023 Dup-scan xtr veins unilateral/limited study Jared Evans MD Work Phone: Start: 06-21-2022 Antibody screen BERNIE MANE Comment on above: Order Comment: Speci men Type: BLOOD SPECIMEN Ordering Facility: [facility] Address: [address] [place], [place] [phone] Performed By: #### T SCR #### [facility] CLIA [id number] [address] [place] [address] OF [facility] Start: 03-07-2020 OPERATIVE REPORT 3m Sca nning Start: 02-08-2020 INCISION AND DRAINAGE R mona Mora Work Phone: Plan of Treatment Date Care Activity Detail Author Start: 02-15-2029 DTaP/Tdap/Td vaccine (2 - Td) DTaP/Tdap/Td vaccine (2 - Td) [place] Start: 02-15-2029 DTaP/Tdap/Td Vaccines (2 - Td or Tdap) DTaP/Tdap/Td Vaccines (2 - Td or Tdap) [facility] Start: 02-15-2029 Urine microalbumin profile DTaP,Tdap,Td Vaccine (2 - Td or Tdap) [facility] Start: 08-05-2027 Diabetes Screening Diabetes Screening [facility] Start: 07-07-2027 Diabetes Screening Diabetes Screening [facility] Start: 07-06-2027 Diabetes Screening Diabetes Screening [facility] Start: 06-21-2027 Diabetes Screening Diabetes Screening 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, right eye Subluxation of right lens Expected: 08/16/2025, Expires: 01/23/2026 [facility] Work Phone: Comment on above: Expected: 08/16/2025, Expires: Start: 08-05-2025 Diabetes: Estimated Glomerular Filtration Rate for Kidney Health Diabetes: Estimated Glomerular Filtration Rate for Kidney Health [facility] Start: 08-04-2025 Diabetes: Estimated Glomerular Filtration Rate for Kidney Health Diabetes: Estimated Glomerular Filtration Rate for Kidney Health [facility] Start: 07-31-2025 End: 01-07-2026 Right eye Photo documentation FUNDUS PHOTOS OD (RIGHT EYE) [facility] Imaging Routine Postoperative eye state 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 Start: 06-10-2025 Thyroid stimulating hormone measurement TSH Level [facility] Start: 05-18-2025 DIABETES SCREEN DIABETES SCREEN [facility] Start: 03-18-2025 Influenza vaccination Influenza Vaccine (Season Ended) [facility] Start: 01-02-2025 End: 01-02-2025 Patient encounter procedure 01/02/2025 9:45 AM EDT Office Visit [facility]mology [address] [place] [address] Savana Lopez MD [address] [place] [address] *3 M, DFE Ophthalmology Comment on above: *3 M, DFE Start: 12-24-2024 End: 12-24-2024 Patient encounter procedure 12/24/2024 2:30 PM EDT Office Visit [facility] [address] [place] [phone] Kristyn Blankenship MD [address] [place] [phone] [facility] Start: 12-05-2024 End: 12-05-2024 Patient encounter procedure 12/05/2024 10:00 AM EDT Office Visit [facility] [address] [place] [phone] Kristyn Blankenship MD [address] [place] [phone] [facility] Start: 11-22-2024 End: 11-22-2024 Admission to same day surgery center 11/22/2024 9:30 AM EDT - 11/22/2024 11:30 AM EDT Surgery [facility] OR [address] [place] [phone] Kristyn Blankenship MD [address] [address] AORTOILIAC ANGIOGRAPHY, RIGHT LOWER EXTREMITY ANGIOGRAPHY WITH RUNOFF, POSSIBLE SUPERFICIAL FEMORAL ARTERY/POPLITEAL/TIBIAL ANGIOPLASTY/STENTING [15839 (CPT )] [facility] Comment on above: AORTOILIAC ANGIOGRAPHY, RIGHT LOWER EXTR EMITY ANGIOGRAPHY WITH RUNOFF, POSSIBLE SUPERFICIAL FEMORAL ARTERY/POPLITEAL/TIBIAL ANGIOPLASTY/STENTING [67783 (CPT )] Start: 11-22-2024 End: 11-22-2024 Angiography extremity unilateral rs&i ANGIOGRAM, EXTREMITY Skin ulcer of right great toe (HCC) Critical limb ischemia of right lower extremity (HCC) 11/22/2024 9:30 AM EDT [facility] Operating [facility] Start: 11-22-2024 Subsequent hospital visit by physician 11/22/2024 9:30 AM EDT Hospital Encounter [facility] [address] [facility] [place] [phone] Kristyn Blankenship MD [address] [phone] [facility] Start: 11-20-2024 Subsequent hospital visit by physician 11/20/2024 Hospital Encounter [facility] [address] [facility] [place] [phone] Kristyn Blankenship MD [address] [place] [address] [facility] Start: 11-13-2024 End: 11-13-2025 Basic metabolic 1998 panel - Serum or Plasma Basic metabolic panel Lab Routine Pre-op evaluation Expected: 11/13/2024 (Approximate), Expires: 11/13/2025 [facility] Comment on above: Expected: 11/13/2024 (Approximate), Expi res: 11/13/2025 Start: 11-13-2024 End: 11-13-2025 CBC W Auto Differential panel - Blood CBC auto differential Lab Routine Pre-op evaluation Expected: 11/13/2024 (Approximate), Expires: 11/13/2025 [facility] Work Phone: Comment on above: Expected: 11/13/2024 (Approximate), Expi res: 11/13/2025 Start: 10-01-2024 End: 10-01-2024 Patient encounter procedure 10/01/2024 10:30 AM EDT Office Visit [facility] [address] [address] Savana Lopez MD [address] [place], [place] [phone] 26 Day F/U ~ DFE OD bscan OD . Ophthalmology Comment on above: 26 Day F/U ~ DFE OD bscan OD . Start: 08-22-2024 End: 08-22-2024 Patient encounter procedure 08/22/2024 10:30 AM EST [facility] Visit [facility] [address] [place] [phone] Henok Santizo PA-C [address] [place], [place] [phone] [facility] Start: 08-15-2024 End: 08-15-2024 Patient encounter procedure 08/15/2024 9:45 AM EST Office Visit [facility] [address] [place] [address] Savana Lopez MD [address] [place] [address] *1 month post op Ophthalmology Comment on above: *1 month post op Start: 08-06-2024 End: 08-06-2024 Patient encounter procedure 08/06/2024 11:00 AM EST Office Visit [facility] [address] [place] [phone] Henok Santizo PA-C [address] [place], [place] [phone] [facility] Start: 08-01-2024 End: 08-01-2024 Patient encounter procedure Ophthalmology Comment on above: *1 week post op Start: 07-31-2024 End: 07-31-2024 Patient encounter procedure [facility] Start: 07-27-2024 End: 07-27-2024 Admission to same day surgery center 07/27/2024 10:50 AM EST - 07/27/2024 12:40 PM EST Surgery Ophthalmology [address] [address] Savana Lopez MD [address] [place] [address] VITRECTOMY 25G [facility] PARS PLANA APPROACH W/ REMOVAL OF PRERETINAL CELLULAR MEMBRANE Ophthalmology Comment on above: VITRECTOMY 25G [facility] PARS PLANA APPROACH W/ REMOVAL OF PRERETINAL CELLULAR MEMBRANE Start: 07-27-2024 End: 07-27-2024 Aspiration/release vitreous subretinal/choroidal RELEASE OF VITREOUS, CHOROIDAL FLUID, PARS PLANA APPROACH Hemorrhagic choroidal detachment of right eye 07/27/2024 10:50 AM EST [facility] Start: 07-27-2024 Subsequent hospital visit by physician 07/27/2024 10:50 AM EST Hospital Encounter Ophthalmology [address] [address] Savana Lopez MD [address] [place] [address] 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] Ophthalmology Comment on above: Hemorrhagic choroidal detachment of righ t eye [H31.411] Start: 07-27-2024 End: 07-27-2024 Vitrectomy pars plana remove preretinal membrane VITRECTOMY 25G [facility] PARS PLANA APPROACH W/ REMOVAL OF PRERETINAL CELLULAR MEMBRANE Hemorrhagic choroidal detachment of right eye 07/27/2024 10:50 AM EST [facility] Start: 07-23-2024 End: 07-23-2024 Patient encounter procedure 07/23/2024 10:45 AM EST Office Visit [facility]mology [address] [address] Savana Lopez MD [address] [place] [address] *1 W, DFE OD/BSCAN OD/OPTOS OD Ophthalmology Comment on above: *1 W, DFE OD/BSCAN OD/OPTOS OD Start: 07-18-2024 Advance Directive Discussion Advance Directive Discussion [facility] Start: 07-18-2024 Medicare Advantage Annual Wellness Visit Medicare Advantage Annual Wellness Visit [facility] Start: 07-16-2024 End: 07-16-2024 Patient encounter procedure Ophthalmology Comment on above: Please schedule this patient with Dr. Jose Angel grey Tuesday07/16/24. Ok to over book per Dr. Lopez *NEW, HEMORRHAGIC CH OROIDALS/MONOCULAR, DFE OD/g SCAN OD ok per DM Start: 07-13-2024 End: 07-13-2024 Aspiration/release vitreous subretinal/choroidal ASPIRATION VITREOUS, CHOROIDAL FLUID, PARS PLANA APPROACH Hemorrhagic choroidal detachment of right eye 07/13/2024 2:04 PM EST [facility] Start: 07-13-2024 End: 07-13-2024 Evaluation and management of inpatient 07/13/2024 2:04 PM EST - 07/13/2024 3:24 PM EST Surgery Ophthalmology [address] [address] Savana Lopez MD [address] [place] [address] ASPIRATION VITREOUS, CHOROIDAL FLUID, PARS PLANA APPROACH Ophthalmology Comment on above: ASPIRATION VITREOUS, CHOROIDAL FLUID, PA RS PLANA APPROACH Start: 06-04-2024 End: 05-21-2025 POCT Prothrombin Time INR ([facility]) POCT Prothrombin Time INR ([facility]) Lab Routine Atrial fibrillation, unspecified type (HCC) Acute venous embolism and thrombosis of deep vessels of proximal end of right lower extremity (HCC) Expected: 06/04/2024, Expires: 05/21/2025 [facility] Work Phone: Comment on above: Expected: 06/04/2024, Expires: Start: 06-04-2024 End: 06-04-2024 Anticoagulant drug monitoring 06/04/2024 1:15 AM EST Anticoagulation - Warfarin Visit [facility] [address] [facility] [address] [place] [phone] [facility] Start: 05-22-2024 End: 05-22-2024 Patient encounter procedure 05/22/2024 3:00 PM EST Office Visit [facility] [place] [address] [facility] [address] [place] [phone] Hermila Padilla MD [address] [facility] [address] [place], [place] [phone] [facility] [place] Start: 05-22-2024 End: 05-22-2024 Anticoagulant drug monitoring 05/22/2024 12:45 AM EST Anticoagulation - Warfarin Visit [facility] [address] [place] [phone] [facility] Start: 05-14-2024 End: 05-14-2024 Patient encounter procedure 05/14/2024 2:00 PM EDT Appointment [facility] Non-Invasive Cardiology [address] [place] [phone] [facility] Non-Invasive Cardiology Start: 05-08-2024 End: 05-01-2025 POCT Prothrombin Time INR ([facility]) POCT Prothrombin Time INR ([facility]) Lab Routine Atrial fibrillation, unspecified type (HCC) Acute venous embolism and thrombosis of deep vessels of proximal end of right lower extremity (HCC) Expected: 05/08/2024 (Approximate), Expires: 05/01/2025 [facility] Work Phone: Comment on above: Expected: 05/08/2024 (Approximate), Expi res: 05/01/2025 Start: 05-08-2024 End: 05-08-2024 Anticoagulant drug monitoring 05/08/2024 1:30 AM EDT Anticoagulation - Other Visit [facility] [address] [place] [phone] [facility] Start: 05-01-2024 End: 05-01-2024 Anticoagulant drug monitoring 05/01/2024 Anticoagulation - Warfarin Visit [facility] [address] [place] [phone] [facility] Start: 04-23-2024 End: 04-19-2025 POCT Prothrombin Time INR ([facility]) POCT Prothrombin Time INR ([facility]) Lab Routine Atrial fibrillation, unspecified type (HCC) Acute venous embolism and thrombosis of deep vessels of proximal end of right lower extremity (HCC) Expected: 04/23/2024 (Approximate), Expires: 04/19/2025 [facility] Work Phone: Comment on above: Expected: 04/23/2024 (Approximate), Expi res: 04/19/2025 Start: 04-23-2024 End: 04-23-2024 Patient encounter procedure 04/23/2024 9:15 AM EDT Office Visit [facility] [address] [place] [phone] Henok Hernandez PA-C [address] [place], [place] [phone] [facility] Start: 04-23-2024 End: 04-23-2024 Anticoagulant drug monitoring 04/23/2024 1:15 AM EDT Anticoagulation - Warfarin Visit [facility] [address] [place] [address] [facility] Start: 04-19-2024 End: 04-19-2024 Anticoagulant drug monitoring 04/19/2024 1:00 AM EDT Anticoagulation - Warfarin Visit [facility] [address] [place] [phone] [facility] Start: 04-16-2024 End: 04-16-2025 POCT Prothrombin Time INR ([facility]) POCT Prothrombin Time INR ([facility]) Lab Routine Deep vein thrombosis (DVT) of lower extremity, unspecified chronicity, unspecified laterality, unspecified vein (HCC) Expected: 04/16/2024, Expires: 04/16/2025 [facility] Work Phone: Comment on above: Expected: 04/16/2024, Expires: Start: 03-18-2024 Covid-19 Vaccine () Covid-19 Vaccine () [facility] Start: 03-18-2024 Influenza vaccination Influenza Vaccine (#1) [facility] Start: 07-18-2023 Advance Directive Discussion Advance Directive Discussion [facility] Start: 07-18-2023 Medicare Advantage Annual Wellness Visit Medicare Advantage Annual Wellness Visit [facility] Start: 03-18-2023 Influenza vaccination Influenza Vaccine (#1) [facility] Start: 03-18-2022 Influenza vaccination INFLUENZA (#1) [facility] Start: 07-18-2021 ADVANCE DIRECTIVE DISCUSSION ADVANCE DIRECTIVE DISCUSSION [facility] Start: 07-18-2021 DEPRESSION ASSESSMENT DEPRESSION ASSESSMENT [facility] Start: 03-18-2020 Influenza vaccination Flu vaccine (#1) [facility] [place] Start: 03-13-2020 End: 03-13-2020 Office Visit 03/13/2020 Office Visit Orthopedic Surgery Jayla Mcmahan MD [address] [facility] [address] [place], [place] [phone] [facility] Rosangela Start: 03-07-2020 Hospital Encounter 03/07/2020 Hospital Encounter IP Unit Jayla Mcmahan MD [address] [facility] [address] [place] [address] [phone] [facility] Dept Start: 03-06-2020 Annual Wellness Visit (AWV) Annual Wellness Visit (AWV) [place], [place] Start: 04-12-2019 Pneumococcal Vaccine: 50+ Years (2 of 2 - PPSV23) Pneumococcal Vaccine: 50+ Years (2 of 2 - PPSV23) [facility] Start: 04-12-2019 Pneumococcal Vaccine: 65+ Years (2 - PPSV23 if available, else PCV20) Pneumococcal Vaccine: 65+ Years (2 - PPSV23 if available, else PCV20) [facility] Start: 04-12-2019 Pneumococcal Vaccine: 65+ Years (2 - PPSV23 or PCV20) Pneumococcal Vaccine: 65+ Years (2 - PPSV23 or PCV20) [facility] Start: 04-12-2019 Pneumococcal Vaccine: 65+ Years (2 of 2 - PPSV23 or PCV20) Pneumococcal Vaccine: 65+ Years (2 of 2 - PPSV23 or PCV20) [facility] Start: 02-13-2016 DIABETES SCREEN DIABETES SCREEN [facility] Start: 09-24-2014 RSV Immunization for Adults (1 - 1-dose 75+ series) RSV Immunization for Adults (1 - 1-dose 75+ series) [facility] Start: 04-23-2010 DIABETES SCREEN DIABETES SCREEN [facility] Start: 09-24-2004 BONE DENSITY BONE DENSITY [facility] Start: 09-24-2004 Pneumococcal 65+ years Vaccine (2 of 2 - PPSV23) Pneumococcal 65+ years Vaccine (2 of 2 - PPSV23) [place] Start: 09-24-2004 PNEUMOCOCCAL: 65+ (1 - PCV) PNEUMOCOCCAL: 65+ (1 - PCV) [facility] Start: 09-24-2004 Screening for osteoporosis Bone Density Screening [facility] Start: 1999 RSV Immunization aged 60 or older (1 - 1-dose 60+ series) RSV Immunization aged 60 or older (1 - 1-dose 60+ series) [facility] Start: 09-24-1994 Screening for osteoporosis DEXA (modify frequency per FRAX score) [place] Start: 09-24-1989 Shingles Vaccine (1 of 2) Shingles Vaccine (1 of 2) [place] Start: 09-24-1989 SHINGRIX VACCINE (1 of 2) SHINGRIX VACCINE (1 of 2) [facility] Start: 09-24-1989 Zoster Vaccines (1 of 2) Zoster Vaccines (1 of 2) [facility] Start: 09-24-1958 Urine microalbumin profile DTAP,TDAP,TD (1 - Tdap) [facility] Start: 09-24-1958 Zoster Vaccines (1 of 2) Zoster Vaccines (1 of 2) [facility] Start: 09-24-1957 Anxiety Screening Anxiety Screening [facility] Start: 09-24-1957 Depression Screening Depression Screening [facility] Start: 09-24-1957 Diabetes: Urine Albumin-Creatinine Ratio for Kidney Health Diabetes: Urine Albumin-Creatinine Ratio for Kidney Health [facility] Start: 09-24-1957 SPIROMETRY SPIROMETRY [facility] Start: 1951 Depression Monitoring Depression Monitoring [facility] Start: 1951 Depresssion Monitoring Depresssion Monitoring [facility] Start: 09-24-1945 PNEUMOCOCCAL: 65+ (1 - PCV) PNEUMOCOCCAL: 65+ (1 - PCV) [facility] Start: 09-24-1944 COVID-19 Vaccine (#1) COVID-19 Vaccine (#1) [facility] Start: 03-27-1940 COVID-19 VACCINE (#1) COVID-19 VACCINE (#1) [facility] Start: 1940 Creatinine [facility] [place] [place] Start: 1939 Lipid panel Lipid Panel [facility] Start: 1939 Medicare Advantage Annual Wellness Visit (AWV) Medicare Advantage Annual Wellness Visit (AWV) [facility] Start: 1939 Potassium monitoring Pot[facility] [place] [place] Start: 1940 Screening for osteoporosis Bone Density Scan [facility] Start: 1940 Thyroid stimulating hormone measurement TSH Level [facility] Angiography extremit y unilateral rs&i AORTOGRAM, WITH SERIALOGRAPHY Critical limb ischemia of right lower extremity (HCC) [facility] Operating Room Aortography abdomina l serialography rs&i AORTOGRAM, WITH SERIALOGRAPHY Critical limb ischemia of right lower extremity (HCC) [facility] Operating Room BSCAN OD (RIGHT EYE) BSCAN OD (R IGHT EYE) OPHT Imaging Routine Hemorrhagic choroidal detachment of right eye 07/09/2024 9:09 AM [facility] Work Phone: End: 01-03-2026 BSCAN OD (RIGHT EYE) BSCAN OD (RIGHT EYE) OPHT Imaging Routine Hemorrhagic choroidal detachment of right eye Dislocation of intraocular lens, initial encounter 1 Occurrences starting 07/12/2024 until 01/03/2026 [facility] Work Phone: Comment on above: 1 Occurrences starting 07/12/2024 until 01/03/2026 End: 01-07-2026 BSCAN OD (RIGHT EYE) BSCAN OD (RIGHT EYE) OPHT Imaging Routine Postoperative eye state 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, right eye Subluxation of right lens 1 Occurrences starting 09/05/2024 until 02/27/2026 [facility] Work Phone: Comment on above: 1 Occurrences starting 09/05/2024 until 02/27/2026 Camera fundoscopy FUNDUS PHOTOS OU (BOTH EYES) OPHT Imaging Routine Hemorrhagic choroidal detachment of right eye 07/09/2024 8:35 AM [facility] End: 03-08-2023 CT Neck W contrast IV [facility] Work Phone: Comment on above: Once for 1 Occurrences starting 03/08/20 until 03/08/2023 Incision/Drainage Incision/Drain age Procedures Routine 02/08/2020 7:17 PM EDT [facility] [place], [place] OUTSIDE PROCEDURE SCAN OUTSIDE P ROCEDURE SCAN Procedures Ordered: 02/21/2023 [facility] Comment on above: Ordered: 02/21/2023 OUTSIDE PROCEDURE SCAN OUTSIDE P ROCEDURE SCAN Procedures Ordered: 03/07/2023 [facility] Comment on above: Ordered: 03/07/2023 OUTSIDE PROCEDURE SCAN OUTSIDE P ROCEDURE SCAN Procedures Ordered: 05/24/2023 [facility] Comment on above: Ordered: 05/24/2023 OUTSIDE PROCEDURE SCAN OUTSIDE P ROCEDURE SCAN Procedures Ordered: 06/14/2023 [facility] [employer] [facility] Comment on above: Ordered: 06/14/2023 Oxygen therapy [Minimum Data Set] Initiate Oxygen Therapy Protocol Respiratory Care Routine Daily until discontinued starting 03/07/2020 [facility] [place] Comment on above: Daily until discontinued starting 2019 End: 02-22-2023 US Head and neck soft tissue [facility] [employer] [facility] Work Phone: Comment on above: Once for 1 Occurrences starting 02/23/20 until 02/22/2023 End: 03-06-2020 XR FINGER RIGHT (MIN 2 VIEWS) XR FINGER RIGHT (MIN 2 VIEWS) Imaging Routine Once for 1 Occurrences starting 03/06/2020 until 03/06/2020 [facility] [place] Comment on above: Once for 1 Occurrences starting 03/06/20 until 03/06/2020 XR FINGER RIGHT (MIN 2 VIEWS) XR FINGER RIGHT (MIN 2 VIEWS) Imaging Routine 03/06/2020 10:20 AM EDT [facility] Immunizations Immunization Date Immunization Notes Care Provider [facility] 05-19-2021 Influenza, High-dose Seasonal, Quadrivalent, Preservative Free Ming Weinberg MD Work Phone: [facility] [employer] 05-19-2021 influenza virus vaccine, unspecified formulation Jared Evans MD Work Phone: [facility] [employer] 02-15-2019 pneumococcal conjuga te vaccine, 13 valent Ming Weinberg MD Work Phone: [facility] [employer] 02-15-2019 tetanus toxoid, redu larissa diphtheria toxoid, and acellular pertussis vaccine, adsorbed Ming Weinberg MD Work Phone: [facility] [employer] 06-29-2013 influenza, high dose seasonal, preservative-free Ming Weinberg MD Work Phone: [employer] NEGATED: Highlighted row has not occurred!04-05-2024 Seasonal trivalent influenza vaccine, adjuvanted, preservative free Winifred Cornell DO Work Phone: [facility] Comment on above: Deferred: Patient Re fused Payers Date Payer Category Payer Self-pay 2023 Private Health Insurance HUMANA HUMANA MEDICARE SUPPLEMENT [id number] 2023-2023 [id number] [place] [id number] Commercial [id number] 2017 Medicare [id number] 2017 Medicare (Managed Care) HUMANA Sol SMILEYRE [id number] 2017 Medicare O HUMANA MEDICARE [id number] 2017 Medicare [id number] 1939 Unknown [id number] [id number]. 2.594 Unknown [id number]. [id number] Unknown [id number] Unknown [id number] [id number]. 2.462 Unknown [id number] 2.16.840.1.395399.3.579. 2.462 Unknown [id number] 2.16840.1.670470.3.579. 2.462 Unknown [id number] 2.16.840.1.801770.3.579. 2.462 Unknown [id number] 2.840.1.179476.3.579. 2.462 Unknown [id number] 2.16840.1.516848.3.579. 2.462 Unknown [id number] 2.840.1.888839.3.579. 2.462 Unknown [id number] 2.840.1.914043.3.579. 2.462 Unknown [id number] 2.840.1.173443.3.579. 2.462 Unknown [id number] 2.840.1.182654.3.579. 2.462 Unknown [id number] 2.840.1.587431.3.579. 2.462 Unknown [id number] 2.840.1.726324.3.579. 2.462 Unknown [id number] 2.16840.1.709981.3.579. 2.462 Unknown [id number] 2.16840.1.833276.3.579. 2.462 Unknown [id number] 2.16840.1.446636.3.579. 2.462 Unknown [id number] 2.16840.1.990621.3.579. 2.462 Unknown [id number] 2.16840.1.853473.3.579. 2.462 Unknown [id number] [id number]. 2.462 Social History Date Type Detail Facility Start: 02-08-2020 Tobacco smoking stat [facility] Start: 02-08-2020 End: 04-20-2024 Alcohol intake Current drinker of alcohol (finding) [facility] Start: 02-08-2020 End: 05-17-2022 Alcohol Comment occ [facility] Start: 1940 Sex Assigned At [facility] Start: 05-04-2022 End: 03-08-2023 Exposure to SARS-CoV-2 (event) [facility] sure [facility] Start: 03-06-2020 End: 07-16-2024 Tobacco smoking status NHIS [facility] Start: 03-06-2020 End: 07-16-2024 Tobacco use and exposure Never used [facility] Tobacco smoking stat [facility] Tobacco smoking consumption unknown [facility] Start: 05-17-2022 End: 04-04-2024 Tobacco smoking status DCIS Smokes tobacco daily [facility] History of tobacco use Cigarette Smoker C [facility] Start: 05-17-2022 End: 06-11-2024 Cigarettes smoked current (pack per day) - Reported 0.[address] [facility] Start: 05-18-2022 History SDOH Financial [address] [facility] Start: 05-18-2022 History SDOH Food Worry [address] [facility] Start: 05-18-2022 History SDOH Transpo rt Med [address] [facility] Start: 07-05-2022 End: 01-02-2025 Alcohol intake Ex-drinker (finding) [facility] History of tobacco use Current smoker [employer] Start: 07-27-2023 End: 06-11-2024 Gender identity Not on file [employer] How often do you nee d to have someone help you when you read instructions, pamphlets, or other written material from your doctor or pharmacy [SILS] Never [facility] Has the electric, [employer], [employer], or water Skinkers threatened to shut off services in your home in past 12Mo No [employer] Are you now , , , , never or living with a partner? [facility] How often to you hav e a drink containing alcohol? Monthly or less [facility] How often do you hav e 6 or more drinks on 1 occasion? Never [facility] How hard is it for y ou to pay for the very basics like food, housing, medical care, and heating Not very hard [facility] Do you feel stress - tense, restless, nervous, or anxious, or unable to sleep at night because your mind is troubled all the time - these days [OSQ] Not at all [facility] (I/We) worried tyler er (my/our) food would run out before (I/we) got money to buy more. Never true [facility] Start: 02-15-2022 End: 10-25-2024 Sex Female (finding) [facility] Start: 1940 Sex assigned at Female S [facility] Start: 08-03-2024 Gender identity Identifies as female gender (finding) [facility] Start: 08-03-2024 Sexual orientation Heterosexual (fin ding) [facility] NEGATED: Highlighted rowStart: NINF History of tobacco use Passive smoker [facility] Medical Equipment Procedure Code Equipment Code Equipment Origin al Text Equipment Identifier Dates Gas Ispan [employer] Intraocular Vision System [id number] - [id number] Start: 07-27-2024 Stent Vasc 6x40x 125 6f [employer] - Sna - [id number] Start: 11-22-2024 Stent Oliva [id number] 25 6f [employer] - Sna - [id number] Start: 11-22-2024 Functional Status Date Assessment Result Facility 07-18-2024 Are you deaf, or do you have serious difficulty hearing No 07/18/2024 12:17 PM Jaci Umana, RADHA No [facility] 07-18-2024 Are you blind, or do you have serious difficulty seeing, even when wearing glasses Yes 07/18/2024 12:17 PM Jaci Umana, RN Yes [facility] 07-18-2024 Do you have serious difficulty walking or climbing stairs Yes 07/18/2024 12:17 PM Jaci Umana, RN Yes [facility] 07-18-2024 Do you have difficul ty dressing or bathing Yes 07/18/2024 12:17 PM Jaci Umana, RN Yes [facility] 07-18-2024 Because of a physica l, mental, or emotional condition, do you have difficulty doing errands alone such as visiting a physician's office or shopping Yes 07/18/2024 12:17 PM Jaci Umana, RN Yes [facility] Mental Status Date Assessment Result Facility 07-18-2024 Because of a physica l, mental, or emotional condition, do you have serious difficulty concentrating, remembering, or making decisions No 07/18/2024 12:17 PM Jaci Umana, RN No 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 documented in this encounter [facility] 01-02-2025 Note HNO ID: [id number] Author: SAVANA LOPEZ MD Service: ? 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 [facility] 12-24-2024 History of Present illness Narrative 12/24/2024 Mel Kareem Jose Alberto 1940 Chief Complaint Patient presents with Follow-up Discuss Arterial Duplex Right 12/13/24; 2nd follow up RLE angio, SFA/pop/tib angioplasty/stenting 11/22/24 ([facility] [phone]) Patient returns for post operative evaluation s/p [...] 07/05/2024 [facility] EYE SURGERY Right 06/2024 x2, [facility] 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 HYSTERECTOMY ORTHOPEDIC SURGERY THROMBECTOMY Right 04/06/2024 RLE mechanical thrombectomy (Krzysztof) VASCULAR SURGERY Right 11/22/2024 AORTOILIAC ANGIOGRAPHY, RIGHT LOWER EXTREMITY ANGIOGRAPHY WITH RUNOFF, SUPERFICIAL FEMORAL ARTERY, POPLITEAL,TIBIAL ANGIOPLASTY and STENTING (Krzysztof) VASCULAR SURGERY Left 11/22/2024 Left femoral angiography (Krzysztof) documented in this encounter [facility] [employer] 12-05-2024 History of Present illness Narrative 12/05/2024 [...] right with MICHELLE PAD (peripheral artery disease) ([facility]) Relevant Orders Vascular US lower extremity arterial [...] I reviewed the images with the patient's qiletvis-ja-zux who was present for today's visit as the patient is blind. Follow up after arterial duplex to discuss the results. Kristyn Blankenship MD Vascular Surgery [1] Past Surgical History: Procedure Laterality Date ANKLE SURGERY ARM SURGERY (HISTORICAL) Right COLONOSCOPY ESOPHAGEAL DILATION EYE SURGERY Right 07/05/2024 [facility] E[facility] SURGERY Right 06/2024 x2, [facility] 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 HYSTERECTOMY ORTHOPEDIC SURGERY THROMBECTOMY Right 04/06/2024 RLE mechanical thrombectomy (Krzysztof) VASCULAR SURGERY Right 11/22/2024 AORTOILIAC ANGIOGRAPHY, RIGHT LOWER EXTREMITY ANGIOGRAPHY WITH RUNOFF, SUPERFICIAL FEMORAL ARTERY, POPLITEAL,TIBIAL ANGIOPLASTY and STENTING (Krzysztof) documented in this encounter [facility] 11-22-2024 Procedure note POA called to bedside and discharge instructions reviewed. Groin site remains intact and LE distal pulses unchanged via assessment with doppler. Transportation called for picker machine operator [facility] 11-22-2024 Miscellaneous Notes POA called to bedside and discharge instructions reviewed. Groin site remains intact and LE distal pulses unchanged via assessment with doppler. Transportation called for picker machine operator POA given updated via phone call. Made [...] the patient as well as the patient's rgcmucku-ao-ycc Fidel. They have elected to proceed. PROCEDURE [...] technique was used to place a 5 Panamanian sheath. The Bentson wire was positioned in [...] catheter and the catheter removed. The 5 Panamanian sheath was exchanged for a long 6 Panamanian Ansell sheath which was positioned with its [...] sheath was exchanged for a short 6 Panamanian sheath. A Vascade closure device was deployed [...] MD Vascular Surgery documented in this encounter [facility] 11-22-2024 Procedure note POA given updated via phone call. Made aware of patient's orders to lay flat until 1325. Daughter in law stated that she will call care facility later to make arrangements for transportation back. [facility] 11-22-2024 Hospital Discharge instructions Mehreen Khanna MD [...] the office l documented in this encounter [facility] 11-22-2024 Nurse Note Patient arrived on unit. Name and date verified. Attached to monitors. Vital signs stable. [facility] 11-22-2024 Note [facility] 11-22-2024 Procedure note OPERATIVE REPORT DATE OF [...] the patient as well as the patient's jiqmkhvv-ce-hct Fidel. They have elected to proceed. PROCEDURE [...] technique was used to place a 5 Panamanian sheath. The Bentson wire was positioned in [...] catheter and the catheter removed. The 5 Panamanian sheath was exchanged for a long 6 Panamanian Ansell sheath which was positioned with its [...] sheath was exchanged for a short 6 Panamanian sheath. A Vascade closure device was deployed [...] preoperative examination. Kristyn Blankenship MD Vascular Surgery [facility] 11-22-2024 Attending History and physical note H&P [...] with a walker with pT at her retirement facility. She is on Eliquis and statin. [...] 07/05/2024 [facility] EYE SURGERY Right 06/2024 x2, [facility] FINGER AMPUTATION Right 03/07/2020 right index [...] Resource Strain: Low Risk (06/20/2024) Received from [facility] Overall Financial Resource Strain (CARDIA) [...] min Stress: Patient Unable To Answer (08/03/2024) [place] [employer] - Occupational Stress Questionnaire Feeling of Stress : Patient unable to answer Social Connections: Unknown (08/03/2024) Social Connection and Isolation Panel [NHANES] Frequency of Communication with Friends and Family: Patient unable to answer Frequency of Social Gatherings with Friends and Family: Patient unable to answer Attends Mu-Ism Services: Patient unable to answer Active Member of Clubs or Organizations: Patient unable to answer Attends Club or Organization Meetings: Never Marital Status: Patient unable to answer Recent Concern: Social Connections - Moderately Isolated (06/20/2024) Received from [facility] Social Connection and Isolation Panel [NHANES] Frequency of Communication with Friends and Family: More than three times a week Frequency of Social Gatherings with Friends and Family: Once a week Attends Mu-Ism Services: More than 4 times per year [...] like me to discuss this with her cgvebfgc-xj-jsq Fidel Castillo. She states she is her POA. I have contacted Fidel via telephone and explained the above and the recommendations for angiography. She will speak with the patient and call the office to let us know how they would like to proceed. Kristyn Blankenship MD Vascular Surgery [employer] Work Phone: 11-22-2024 Note [employer] 11-22-2024 History and physical note H&P [...] with a walker with pT at her retirement facility. She is on Eliquis and statin. She is a former smoker. PastMedical History: Past Medical History: Diagnosis Date Arrhythmia PAF Asthma Chronic kidney disease COPD (chronic obstructive pulmonary disease) ([facility]) DVT (deep venous thrombosis) ([facility]) Essential hypertension 03/07/2020 GERD (gastroesophageal reflux disease) Hiatal hernia IBS (irritable bowel syndrome) Pure hypercholesterolemia 03/07/2020 PVD (peripheral vascular disease) ([facility]) Stroke ([facility]) Past Surgical History: Past Surgical History: Procedure Laterality Date ANKLE SURGERY ARM SURGERY (HISTORICAL) Right COLONOSCOPY ESOPHAGEAL DILATION EYE SURGERY Right 07/05/2024 [facility] E[facility] SURGERY Right 06/2024 x2, [facility] FINGER AMPUTATION Right 03/07/2020 right index [...] Resource Strain: Low Risk (06/20/2024) Received from [facility] Overall Financial Resource Strain (CARDIA) [...] min Stress: Patient Unable To Answer (08/03/2024) [place] [employer] - Occupational Stress Questionnaire Feeling of Stress : Patient unable to answer Social Connections: Unknown (08/03/2024) Social Connection and Isolation Panel [NHANES] Frequency of Communication with Friends and Family: Patient unable to answer Frequency of Social Gatherings with Friends and Family: Patient unable to answer Attends Mu-Ism Services: Patient unable to answer Active Member of Clubs or Organizations: Patient unable to answer Attends Club or Organization Meetings: Never Marital Status: Patient unable to answer Recent Concern: Social Connections - Moderately Isolated (06/20/2024) Received from [facility] Social Connection and Isolation Panel [NHANES] Frequency of Communication with Friends and Family: More than three times a week Frequency of Social Gatherings with Friends and Family: Once a week Attends Mu-Ism Services: More than 4 times per year [...] like me to discuss this with her mhyzkljj-mu-xet Fidel Castillo. She states she is her POA. I have contacted Fidel via telephone and explained the above and the recommendations for angiography. She will speak with the patient and call the office to let us know how they would like to proceed. Kristyn Blankenship MD Vascular Surgery documented in this encounter [facility] 11-09-2024 Note Tried to reach patie nt to discuss calliope player her procedure. Mailbox full & unable to leave voicemail. [facility] 11-05-2024 History of Present illness Narrative [...] with a walker with pT at her retirement facility. She is on Eliquis and statin. She is a former smoker. PastMedical History: Past Medical History: Diagnosis Date Arrhythmia PAF Asthma Chronic kidney disease COPD (chronic obstructive pulmonary disease) ([facility]) DVT (deep venous thrombosis) ([facility]) Essential hypertension 03/07/2020 GERD (gastroesophageal reflux disease) Hiatal hernia IBS (irritable bowel syndrome) Pure hypercholesterolemia 03/07/2020 PVD (peripheral vascular disease) ([facility]) Stroke ([facility]) Past Surgical History: Past Surgical History: Procedure Laterality Date ANKLE SURGERY ARM SURGERY (HISTORICAL) Right COLONOSCOPY ESOPHAGEAL DILATION EYE SURGERY Right 07/05/2024 [facility] SURGERY Right 06/2024 x2, [facility] FINGER AMPUTATION Right 03/07/2020 right index [...] (80 mg) by mouth daily. 08/09/24 09/22/24 aKel Anderson DO lisinopril 40 MG tablet Take [...] right eye 2 times daily. 07/06/24 07/06/25 DO John Rojasgy Ellipta 100-62.5-25 MCG/ACT aerosol powder Take 1 [...] Resource Strain: Low Risk (06/20/2024) Received from [facility] Overall Financial Resource Strain (CARDIA) [...] min Stress: Patient Unable To Answer (08/03/2024) [place] [employer] [place] [employer] - Occupational Stress Questionnaire Feeling of Stress : Patient unable to answer Social Connections: Unknown (08/03/2024) Social Connection and Isolation Panel [NHANES] Frequency of Communication with Friends and Family: Patient unable to answer Frequency of Social Gatherings with Friends and Family: Patient unable to answer Attends Mu-Ism Services: Patient unable to answer Active Member of Clubs or Organizations: Patient unable to answer Attends Club or Organization Meetings: Never Marital Status: Patient unable to answer Recent Concern: Social Connections - Moderately Isolated (06/20/2024) Received from [facility] Social Connection and Isolation Panel [NHANES] Frequency of Communication with Friends and Family: More than three times a week Frequency of Social Gatherings with Friends and Family: Once a week Attends Mu-Ism Services: More than 4 times per year [...] like me to discuss this with her [id number] Fidel Castillo. She states she is her POA. I have contacted Fidel via telephone and explained the above and the recommendations for angiography. She will speak with the patient and call the office to let us know how they would like to proceed. Kristyn Blankenship MD Vascular Surgery documented in this encounter [facility] 11-05-2024 Note [facility] 10-01-2024 Note Date of Procedure 10/01/2024. Curing Oven Tender Information CATALINA Donovan CDOS 10/01/2024 10:58 AM [...] drops right eye documented in this encounter [facility] 10-01-2024 Note HNO ID: [id number] Author: SAVANA LOPEZ MD Service: ? 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 documented in this encounter 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 documented in this encounter [facility] 09-05-2024 Note HNO ID: [id number] Author: SAVANA LOPEZ MD Service: ? 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 [facility] 08-22-2024 History of Present illness Narrative [facility] Vascular Surgery Follow-up Office Visit CHIEF COMPLAINT: Chief Complaint Patient presents with Follow-up 3 month follow up, PAD check ([facility] HISTORY OF PRESENT ILLNESS: Mel [...] is ambulating with walker with PT at [facility] without difficulty. She denies any rest pain [...] 07/05/2024 [facility] EYE SURGERY Right 06/2024 x2, [facility] FINGER AMPUTATION Right 03/07/2020 right index [...] Resource Strain: Low Risk (06/20/2024) Received from [facility] Overall Financial Resource Strain (CARDIA) [...] min Stress: Patient Unable To Answer (08/03/2024) [place] [employer] [employer] [employer] - Occupational Stress Questionnaire Feeling of Stress : Patient unable to answer Social Connections: Unknown (08/03/2024) Social Connection and Isolation Panel [NHANES] Frequency of Communication with Friends and Family: Patient unable to answer Frequency of Social Gatherings with Friends and Family: Patient unable to answer Attends Mu-Ism Services: Patient unable to answer Active Member of Clubs or Organizations: Patient unable to answer Attends Club or Organization Meetings: Never Marital Status: Patient unable to answer Recent Concern: Social Connections - Moderately Isolated (06/20/2024) Received from [facility] Social Connection and Isolation Panel [NHANES] Frequency of Communication with Friends and Family: More than three times a week Frequency of Social Gatherings with Friends and Family: Once a week Attends Mu-Ism Services: More than 4 times per year [...] (HCC) - Primary PAD (peripheral artery disease) ([facility]) 1. Stable follow up of lower extremity [...] Follow-Up: prn . documented in this encounter [facility] 08-16-2024 Note [facility] 08-16-2024 Nurse Note Patient picked up for transfer to [facility] by stretcher. Report already called to GENET Garcia. [facility] 08-16-2024 Nurse Note Patient picked up for transfer to [facility] by stretcher. Report already called to GENET Garcia. Telephone report called to GENET Garcia at [facility]. Bedside swallow completed. Pt passed and tolerated well tolerated well. documented in this encounter [facility] 08-16-2024 Nurse Note Telephone report called to GENET Garcia at [facility]. [facility] 08-16-2024 Note Formatting of this n ote might be different from the original. Arranged transport to [facility] via [employer] with pickup at 2pm. Notified snf of transport time via [employer] message; reviewed time with RN, community support associate and TCC. Called pt's daughter to review discharge time., plan; she is agreeable. [facility] 08-16-2024 Note Formatting of this n ote might be different from the original. Arranged transport to [facility] via [employer] with pickup at 2pm. Notified snf of transport time via [employer]port message; reviewed time with RN, community support associate and TCC. Called pt's daughter to review discharge time., plan; she is agreeable. [facility] 08-16-2024 Miscellaneous Notes Arranged transport to [facility] via [employer] with pickup at 2pm. Notified snf of transport time via [employer]port message; reviewed time with RN, community support associate and TCC. Called pt's daughter to review discharge time., plan; she is agreeable. Patient Choice Patient Name: MEL POP Date of : 1940 All Providers Sent Referral Name: [facility] Phone: [phone] Address: [address] [place] [address] Name: [facility] Phone: [phone] Address: [address] [place] [address] Name: [facility] Phone: [phone] Address: [address] [place] [address] MAR & Discharge med list transmitted to [facility] via [employer] per TCC request. Pt has auth to go to [facility]. Dtr Fidel,[phone] was called, message left @DC. Care Team was messaged...place DC orders/MAR. Dar YOUNG, RN complete HECTOR. LOCKMAKER will arrange transport for this am. [facility] tasked to sebd DC orders/MAR. Problem: Knowledge [...] met Outcome: Progressing Authorization is pending with Rey. Ref# [id number] to be DC'd to [facility]. Dttiffanie Stokes Updated. CM to follow. Patient progressing toward [...] Progressing Pt has Been accepted to [facility]. Need PT/OT to see so auth to [...] Outcome: Progressing Referral placed to SNF- [facility] via [facility] per TCC request. Await review and response regarding ability to accept. [facility] notified. Electronically signed by Christine Morataya [facility], 08-13-2024 at 3:00 PM Called dgt to talk about dc planning. Dgt continues to tour SNFs this evening, since she was sick this weekend. Provided me with two more SNF choices. [facility]. Tasked [facility] to create these referrals. CM to [...] Dgt touring facilities over the weekend. Moira. [facility] pending acceptance, updates sent via [facility]. Problem: Knowledge Deficit Goal: Patient/family/caregiver demonstrates [...] Nutritional Intake Outcome: Progressing Referral placed to [facility] via [facility]port per TCC request. Await review and response regarding ability to accept. TCC notified. Electronically signed by Christine Morataya [facility], 08-10-2024 at 9:23AM Pt was to be DC to [facility]. Found out pt and dtr didn't want to return to [facility]. SNF was made aware. On adm spoke with Dtr Fidel, ok to return. Called Dtr this am, after speaking with pt and things that happened and didn't happen. Fidel requesting a referral to be made to [facility]. [facility] tasked to send. A SNF list was emailed to Fidel. [email or web address]. She will tour facilities over weekend. CM [...] and med list sent via [facility] to [facility] per TCC request. Auth received. Patient with active dc orders. Transportation arranged through [employer] with estimated picker machine operator time of 1929. left with daughter Fidel along with 3N phone number to call with questions. Bedside RN aware. Facility updated. [facility] bailer tenders supervisor sent orders to [facility]. logistics analytics manager was asked to assist with setting up transport back to [facility] this evening. home attendant had already done so, but this senior clinical study manager called daughter to inform her of discharge and transport set up. Daughter did not wish patient to return to the SNF. Branch Operations Manager told her that patient is medically stable for dc and that she should continue the discussion with the social service technician and senior linux unix administrator at The snf, and also get options from [employer]. Coordinator was to message the snf about return this evening via [email or web address]. Updated PT/OT notes placed to SNF [facility] via [facility]port per [facility] request. Await review and response regarding ability to accept. TCC notified. Electronically signed by [facility] Aracelis Gardiner Patient is medically ready for dc. PT/OT both continuing to recommend SNF. [facility] senior clinical study manager asked to start auth. Plan to dc back to [facility] pending auth I was off Yesterday, PT note was in from Tuesday. Therapy to see today was sent out to OT Tuesday to see yesterday. Pt was not seen. I did sent a therapy to see today to PT/OT so an auth can be started. Pt will Be Dc'd to [facility]. CM to follow. Problem: Knowledge Deficit Goal: [...] aspiration 2/2 vomiting. Discharge Plan: Return to [facility]. Therapy eval needed for precert. TCC to [...] Plan is for pt to return to [facility]. Auth and HECTOR needed prior to DC. CM to follow. Per attending pt ready for DC. [facility] Pt needs PT/OT to start auth Therapy [...] RN Outcome: Progressing Return referral placed to [facility] via [facility] per [facility] request. Await review and response regarding ability to accept. TCC notified. Pt to ED w N/V/Diarrhea, was Dx w Aspiration pneumonitis. Started on IV ATB's. Called pt's Dtr, Fidel, . Pt is from [facility]. Plan on returning. [facility] tasked to send a return referral. [...] Improved Outcome: Progressing documented in this encounter [facility] 08-16-2024 Note Formatting of this n ote might be different from the original. Patient Choice Patient Name: MEL POP Date of : 1940 All Providers Sent Referral Name: [facility] Phone: [phone] Address: [address] [place] [address] Name: [facility] Phone: [phone] Address: [address] [place] [address] Name: [facility] Phone: [phone] Address: [address] [place] [address] [facility] 08-16-2024 Note Formatting of this n ote might be different from the original. Patient Choice Patient Name: MEL POP Date of : 1940 All Providers Sent Referral Name: [facility] Phone: [phone] Address: [address] [place] [address] Name: [facility] Phone: [phone] Address: [address] [place] [address] Name: [facility] Phone: [phone] Address: [address] [place] [address] [facility] 08-16-2024 Note Formatting of this n ote might be different from the original. MAR & Discharge med list transmitted to [facility] via Careport per TCC request. [facility] 08-16-2024 Note Formatting of this n ote might be different from the original. MAR & Discharge med list transmitted to [facility] via [facility]port per TCC request. [facility] 08-16-2024 Note Formatting of this n ote might be different from the original. Pt has auth to go to [facility]. Dtr [phone] was called, message left @DC. Care Team was messaged...place DC orders/MAR. Ithe HECTOR, RN complete HECTOR. LOCKMAKER will arrange transport for this am. MANAGER CLINICAL APPLICATIONS tasked to sebd DC orders/MAR. ower 08-16-2024 Note Formatting of this n ote might be different from the original. Pt has auth [facility] go [facility]. Dtr [phone] was called, message left @DC. Care Team was messaged...place DC orders/MAR. Dar YOUNG RN complete HECTOR. LOCKMAKER will arrange transport for this am. MANAGER CLINICAL APPLICATIONS tasked to sebd DC orders/MAR. [employer] [facility] [employer] 08-16-2024 History of Present illness Narrative Hospitalist Progress Note 08/16/2024 Subjective: Admit Date: 08/03/2024 PCP: Jared Evans MD Room#: [id number] A BRIEF HOSPITAL COURSE: Mel is a 83 y.o. female with past medical history below who presents with chief complaint listed above.Patient is an 83 y/o female who presented to [facility] early this AM from local DC for vomiting and diarrhea. Patient reported she [...] COPD (chronic obstructive pulmonary disease) ([facility]) DVT (deep venous thrombosis) ([facility]) Essential hypertension 03/07/2020 GERD (gastroesophageal reflux disease) Hiatal hernia IBS (irritable bowel syndrome) Pure hypercholesterolemia 03/07/2020 PVD (peripheral vascular disease) ([facility]) Stroke ([facility]) LABS: CBC: No results for input(s): [...] Devika Escobar MD Division of Hospitalist Medicine [facility] Hospitalist Progress Note 08/15/2024 Subjective: Admit Date: 08/03/2024 PCP: Jared Evans MD Room#: [id number] A BRIEF HOSPITAL COURSE: Mel is a 83 y.o. female with past medical history below who presents with chief complaint listed above.Patient is an 83 y/o female who presented to [facility] early this AM from local DC for vomiting and diarrhea. Patient reported she [...] (HCC) DVT (deep venous thrombosis) ([facility]) Essential hypertension 03/07/2020 GERD (gastroesophageal reflux disease) Hiatal hernia IBS (irritable bowel syndrome) Pure hypercholesterolemia 03/07/2020 PVD (peripheral vascular disease) ([facility]) Stroke ([facility]) LABS: CBC: No results for input(s): [...] DO NOT CALL-TERMINALLY ILL Mobile Relation: Friend Deivka Escobar MD Division of Hospitalist Medicine [facility] Images from the original note were not included. PHYSICAL THERAPY [facility] Treatment Note Name/MRN: Mel Pop ([id number]) Date of : 1940 Age: 83 y.o. 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 [...] Goal: keep getting up, get back to [facility]. Encounter Problems Encounter Problems (Active) Balance Patient [...] original note were not included. OCCUPATIONAL THERAPY [facility] Treatment Note Name/MRN: Mel Pop ([id number]) Date of : 1940 Age: 83 y.o. [facility] Discharge Recommendation: Shelter Facility Prior Level of Function Prior Level [...] 24/7 assist, home health OT and home health nurse licensed practical. Pt. ( Who is totally BLIND), Would due better receiving therapy in her home due to familiar environment. If she can not get 24/7 assist at home then OT [place] Subjective Pt. Remains in her recliner eating [...] Minutes (ther act-1) FERDINAND Castellanos Cosigned by Shannon Fernandez, OTR/L at 08/14/2024 2:25 PM EST Hospitalist Progress Note 08/14/2024 Subjective: Admit Date: 08/03/2024 PCP: Jared Evans MD Room#: [id number] A BRIEF HOSPITAL COURSE: Mel is a 83 y.o. female with past medical history below who presents with chief complaint listed above.Patient is an 83 y/o female who presented to [facility] early this AM from local DC for vomiting and diarrhea. Patient reported she [...] Devika Escobar MD Division of Hospitalist Medicine [facility] Hospitalist Progress Note 08/13/2024 Subjective: Admit Date: 08/03/2024 PCP: Jared Evans MD Room#: [id number] A BRIEF HOSPITAL COURSE: Mel is a 83 y.o. female with past medical history below who presents with chief complaint listed above.Patient is an 83 y/o female who presented to [facility] early this AM from local DC for vomiting and diarrhea. Patient reported she [...] (HCC) DVT (deep venous thrombosis) ([facility]) Essential hypertension 03/07/2020 GERD (gastroesophageal reflux disease) Hiatal hernia IBS (irritable bowel syndrome) Pure hypercholesterolemia 03/07/2020 PVD (peripheral vascular disease) ([facility]) Stroke ([facility]) LABS: CBC: No results for input(s): [...] Kael Anderson DO Division of Hospitalist Medicine [facility] Nutrition Assessment Type and Reason for [...] No significant fluid accumulation (per flow sheets) Therapeutic Specialist Strength: Not Performed Nutrition Assessment: 83 y.o. [...] On: Kcal/kg Weight Used for Energy Requirements: [place] Weight for Energy Calculation (kg): 54 kg Total Energy Requirements (kcals/day): 0153-9420 Weight Used for Protein Requirements: [place] Weight in Kg Used for Protein Requirements: [...] 160# 07/05) % Weight Change (Calculated): 12.2 [place] Body Weight (lbs) (Calculated): 119 lbs [place] Body Weight (Kg) (Calculated): 54 kg BMI [...] soon to determine Janki Fields RD Contact: *[phone] Hospitalist Progress Note 08/12/2024 Subjective: Admit Date: 08/03/2024 PCP: Jared Evans MD Room#: [id number] A BRIEF HOSPITAL COURSE: Mel is a 83 y.o. female with past medical history below who presents with chief complaint listed above.Patient is an 83 y/o female who presented to [facility] early this AM from local DC for vomiting and diarrhea. Patient reported she [...] (HCC) DVT (deep venous thrombosis) ([facility]) Essential hypertension 03/07/2020 GERD (gastroesophageal reflux disease) Hiatal hernia IBS (irritable bowel syndrome) Pure hypercholesterolemia 03/07/2020 PVD (peripheral vascular disease) ([facility]) Stroke ([facility]) LABS: CBC: No results for input(s): [...] Kael Anderson DO Division of Hospitalist Medicine [facility] Hospitalist Progress Note 08/11/2024 Subjective: Admit Date: 08/03/2024 PCP: Jared Evans MD Room#: [id number] A BRIEF HOSPITAL COURSE: Mel is a 83 y.o. female with past medical history below who presents with chief complaint listed above.Patient is an 83 y/o female who presented to [facility] early this AM from local DC for vomiting and diarrhea. Patient reported she [...] 03/07/2020 PVD (peripheral vascular disease) (HCC) Stroke ([facility]) LABS: CBC: No results for input(s): [...] NOT CALL-TERMINALLY ILL Mobile Relation: Friend Kael Anderosn DO Division of Hospitalist Medicine [facility] Hospitalist Progress Note 08/10/2024 Subjective: Admit Date: 08/03/2024 PCP: Jared Evans MD Room#: [id number] A BRIEF HOSPITAL COURSE: Mel is a 83 y.o. female with past medical history below who presents with chief complaint listed above.Patient is an 83 y/o female who presented to [facility] early this AM from local DC for vomiting and diarrhea. Patient reported she [...] Anderson DO Division of Hospitalist Medicine [facility] Hospitalist Progress Note 08/09/2024 Subjective: Admit Date: 08/03/2024 PCP: Jared Evans MD Room#: [id number] A BRIEF HOSPITAL COURSE: Mel is a 83 y.o. female with past medical history below who presents with chief complaint listed above.Patient is an 83 y/o female who presented to [facility] early this AM from local DC for vomiting and diarrhea. Patient reported she [...] (HCC) DVT (deep venous thrombosis) ([facility]) Essential hypertension 03/07/2020 GERD (gastroesophageal reflux disease) Hiatal hernia IBS (irritable bowel syndrome) Pure hypercholesterolemia 03/07/2020 PVD (peripheral vascular disease) ([facility]) Stroke ([facility]) LABS: CBC: No results for input(s): [...] Relation: Friend Kael Anderson DO [facility] Images from the original note were not included. OCCUPATIONAL THERAPY [facility] Initial Evaluation Name/MRN: Mel Pop ([id number]) Evaluation Date: 08/08/2024 Date of : 1940 Admission Date: 08/03/2024 2:22 AM Age: 83 y.o. Room/Bed: N5[facility]/N5[facility] A Discharge Recommendation: Shelter Facility Assessment IMPRESSION: Pt would benefit from [...] 03/07/2020 PVD (peripheral vascular disease) ([facility]) Stroke ([facility]) Past Surgical History: Past Surgical History: Procedure Laterality Date ANKLE SURGERY ARM SURGERY (HISTORICAL) Right COLONOSCOPY ESOPHAGEAL DILATION EYE SURGERY 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 HYSTERECTOMY ORTHOPEDIC SURGERY THROMBECTOMY Right 04/06/2024 RLE mechanical thrombectomy (Krzysztof) Admission Diagnosis: Patient Active Problem List Diagnosis Date Noted Aspiration pneumonitis ([facility]) ([facility]) 08/03/2024 Visual disturbance, subjective 07/06/2024 Retinal detachment, right 07/05/2024 Vision loss of right eye 07/05/2024 Acute venous embolism and thrombosis of deep vessels of proximal lower extremity ([facility]) 04/14/2024 Peripheral arterial disease ([facility]) 04/03/2024 Immunodeficiency due to conditions classified elsewhere ([facility]) 07/27/2023 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 ([facility]) 07/27/2023 Bilateral pneumonia 06/16/2022 COVID-19 06/16/2022 Hypothyroidism 06/16/2022 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[facility]) 06/16/2022 Cellulitis 05/18/2022 Nicotine use disorder 05/18/2022 Acute venous embolism and thrombosis of deep vessels of proximal end of right lower extremity ([facility]) 04/19/2024 Atrial fibrillation, unspecified type ([facility]) 04/19/2024 Irritable bowel syndrome with diarrhea 03/07/2020 Microscopic hematuria 03/07/2020 Left retinal detachment 03/07/2020 Hyperglycemia 03/07/2020 Osteopenia of left femoral neck 03/07/2020 MCFP current use of anticoagulant therapy 03/07/2020 Seasonal allergies 03/07/2020 Chronic renal insufficiency, stage III (moderate) ([facility]) 03/07/2020 Major depression, single episode, in complete remission ([facility]) 03/07/2020 Gastroesophageal reflux disease without esophagitis 03/07/2020 Essential hypertension 03/07/2020 Pure hypercholesterolemia 03/07/2020 Overweight 03/07/2020 Psoriasis 03/07/2020 History of cerebrovascular accident 03/07/2020 Atrial fibrillation ([facility]) 03/07/2020 Chronic obstructive pulmonary disease ([facility]) 03/07/2020 Finger osteomyelitis, right ([facility]) 03/06/2020 Medical Precautions: Enhanced Contact Proper [...] of Care supervision is transferred to a [facility] Therapy Services Occupational Therapist. Goals and/or treatment plan was established in collaboration with patient/family/other representatives. Shannon Fernandez MS, OTR/L Images from the original note were not included. PHYSICAL THERAPY [facility] Treatment Note Name/MRN: Mel Pop ([id number]) Date of : 1940 Age: 83 y.o. [facility] Discharge Recommendation: Shelter Facility Equipment Needed: (pt uses [facility] FOUNTAIN ATTENDANT) Prior Level of Function Prior Level of [...] Raw Score (No Stairs) : 15 JH-HLM -HLM Score: Walked 25 ft or more (i.e. walked outside of room) Goals Patient Stated Goal: keep getting up, get back to [facility]. Encounter Problems Encounter Problems (Active) Balance Patient [...] Date: 08/03/2024 PCP: Jared Evans MD Room#: [id number]/[id number] A BRIEF HOSPITAL COURSE: Mel is a 83 y.o. female with past medical history below who presents with chief complaint listed above.Patient is an 83 y/o female who presented to [facility] early this AM from local DC for vomiting and diarrhea. Patient reported she [...] (HCC) DVT (deep venous thrombosis) ([facility]) Essential hypertension 03/07/2020 GERD (gastroesophageal reflux disease) Hiatal hernia IBS (irritable bowel syndrome) Pure hypercholesterolemia 03/07/2020 PVD (peripheral vascular disease) ([facility]) Stroke ([facility]) LABS: CBC: Recent Labs 08/05/24 2343 [...] Mobile Relation: Mother Secondary Emergency Contact: VasughassanDamaris DO NOT CALL-TERMINALLY ILL Mobile Relation: Friend Kael Anderson DO Division of Hospitalist Medicine [facility] Hospitalist Progress Note 08/07/2024 Subjective: Admit Date: 08/03/2024 PCP: Jared Evans MD Room#: [id number] A BRIEF HOSPITAL COURSE: Mel is a 83 y.o. female with past medical history below who presents with chief complaint listed above.Patient is an 83 y/o female who presented to [facility] early this AM from local DC for vomiting and diarrhea. Patient reported she [...] 100 mL/hr, Last Rate: 100 mL/hr (08/06/24 8574) Assessment Data: Acute, acute on chronic, unstable/uncontrolled [...] [facility] Hospitalist Progress Note 08/06/2024 Subjective: Admit Date: 08/03/2024 PCP: Jared Evans MD Room#: [id number] A BRIEF HOSPITAL COURSE: Mel is a 83 y.o. female with past medical history below who presents with chief complaint listed above.Patient is an 83 y/o female who presented to [facility] early this AM from local DC for vomiting and diarrhea. Patient reported she [...] (HCC) DVT (deep venous thrombosis) ([facility]) Essential hypertension 03/07/2020 GERD (gastroesophageal reflux disease) Hiatal hernia IBS (irritable bowel syndrome) Pure hypercholesterolemia 03/07/2020 PVD (peripheral vascular disease) ([facility]) Stroke ([facility]) LABS: CBC: Recent Labs 08/04/24 0447 08/05/24 0358 08/05/24 2343 WBC 5.6 6.5 7.3 RBC 3.88 3.78* 3.96 HGB 10.0* 9.9* 10.3* HCT 33.0* 31.9* 33.3* MCV 85.1 84.4 84.1 RDW 19.3* 19.2* 18.9* PLT 280 242 235 BMP: Recent Labs 08/04/247 08/05/24 0358 08/05/24 2343 NA 139 134* [...] Kayden Tatum MD Division of Hospitalist Medicine Auth0 [facility] Images from the original note were not included. PHYSICAL THERAPY [facility] Initial Evaluation Name/MRN: Mel Pop ([id number]) Evaluation Date: 08/06/2024 Date of : 1940 Admission Date: 08/03/2024 2:22 AM Age: 83 y.o. [facility] Discharge Recommendation: Shelter Facility (pt from SNF at baseline) Equipment Needed: (pt uses [facility] FOUNTAIN ATTENDANT) Assessment IMPRESSION: Pt's Vincent scoring has varied [...] to SNF-level care (pt was receiving PT FOUNTAIN ATTENDANT) Admitting Diagnosis: aspiration pneumonitis, + Norovirus. S/p [...] Problem List Diagnosis Date Noted Aspiration pneumonitis ([facility]) (HCC) 08/03/2024 Visual disturbance, subjective 07/06/2024 Retinal detachment, right 07/05/2024 Vision loss of right eye 07/05/2024 Acute venous embolism and thrombosis of deep vessels of proximal lower extremity ([facility]) 04/14/2024 Peripheral arterial disease ([facility]) 04/03/2024 Immunodeficiency due to conditions classified elsewhere ([facility]) 07/27/2023 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 ([facility]) 07/27/2023 Bilateral pneumonia 06/16/2022 COVID-19 06/16/2022 Hypothyroidism 06/16/2022 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[facility]) 06/16/2022 Cellulitis 05/18/2022 Nicotine use disorder 05/18/2022 Acute venous embolism and thrombosis of deep vessels of proximal end of right lower extremity ([facility]) 04/19/2024 Atrial fibrillation, unspecified type ([facility]) 04/19/2024 Irritable bowel syndrome with diarrhea 03/07/2020 Microscopic hematuria 03/07/2020 Left retinal detachment 03/07/2020 Hyperglycemia 03/07/2020 Osteopenia of left femoral neck 03/07/2020 MCFP current use of anticoagulant therapy 03/07/2020 Seasonal allergies 03/07/2020 Chronic renal insufficiency, stage III (moderate) ([facility]) 03/07/2020 Major depression, single episode, in complete remission ([facility]) 03/07/2020 Gastroesophageal reflux disease without esophagitis 03/07/2020 Essential hypertension 03/07/2020 Pure hypercholesterolemia 03/07/2020 Overweight 03/07/2020 Psoriasis 03/07/2020 History of cerebrovascular accident 03/07/2020 Atrial fibrillation ([facility]) 03/07/2020 Chronic obstructive pulmonary disease ([facility]) 03/07/2020 Finger osteomyelitis, right ([facility]) 03/06/2020 Medical Precautions: Enhanced Contact Proper [...] OD Hearing: normal Social/Functional History Resident at [facility] at baseline. Goes to therapy and [...] Raw Score (No Stairs) : 15 JH-HLM -HLM Score: Walked 10 steps or [...] Goal: keep getting up, get back to [facility]. Encounter Problems Encounter Problems (Active) Balance Patient [...] of Care supervision is transferred to a [facility] Therapy Services Physical Therapist. Goals and/or treatment plan was established in collaboration with patient/family/other representatives. Hospitalist Progress Note 08/05/2024 Subjective: Admit Date: 08/03/2024 PCP: Jared Evans MD Room#: [id number]/[id number] A BRIEF HOSPITAL COURSE: Mel is a 83 y.o. female with past medical history below who presents with chief complaint listed above.Patient is an 83 y/o female who presented to [facility] early this AM from local DC for vomiting and diarrhea. Patient reported she [...] COPD (chronic obstructive pulmonary disease) ([facility]) DVT (deep venous thrombosis) ([facility]) Essential hypertension 03/07/2020 GERD (gastroesophageal reflux disease) Hiatal hernia IBS (irritable bowel syndrome) Pure hypercholesterolemia 03/07/2020 PVD (peripheral vascular disease) ([facility]) Stroke ([facility]) LABS: CBC: Recent Labs 08/03/24 0251 08/04/247 08/05/24 0358 WBC 9.1 5.6 6.5 RBC [...] 100 mL/hr, Last Rate: 100 mL/hr (08/05/24 0423) Assessment Data: NA (LOW: 2x CAT1 or [...] Kayden Tatum MD Division of Hospitalist Medicine [facility] Images from the original note were not included. PHYSICAL THERAPY [facility] Name/MRN: Mel Pop ([id number]) Date: 08/05/2024 PT orders received per Vincent [...] an 83 y/o female who presented to [facility] early this AM from local DC for vomiting and diarrhea. Patient reported she [...] COPD (chronic obstructive pulmonary disease) ([facility]) DVT (deep venous thrombosis) ([facility]) Essential hypertension 03/07/2020 GERD (gastroesophageal reflux disease) Hiatal hernia IBS (irritable bowel syndrome) Pure hypercholesterolemia 03/07/2020 PVD (peripheral vascular disease) ([facility]) Stroke ([facility]) LABS: CBC: Recent Labs 08/03/24 0251 [...] Tatum MD Division of Hospitalist Medicine [facility] documented in this encounter [facility] 08-15-2024 Plan of care note Problem: Knowledge [...] My discharge needs are met Outcome: Progressing [facility] 08-15-2024 Note Formatting of this n ote might be different from the original. Authorization is pending with [email or web address]. Ref# [id number] to be DC'd to [facility]. Dtr Fidel Updated. CM to follow. [facility] 08-15-2024 Note Formatting of this n ote might be different from the original. Authorization is pending with [email or web address]. Ref# [id number] to be DC'd to [facility]. Dtr Fidel Updated. CM to follow. [facility] 08-15-2024 Note Patient progressing toward all goals. [facility] 08-15-2024 Plan of care note Patient progressing toward all goals. 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 Seasonal allergies [...] assistance Toileting Total assistance Feeding Minimal assistance Ui Ux Developer Minimal assistance Med Delivery yes Wound Care [...] select all that are sent with patient): Jaja FRAGA SIGNATURE: MANAGEMENT/SOCIAL WORK SECTION Inpatient Status Date: 08/03/2024 Discharging to Facility/ Agency Name: [facility] Address: [address] [place] [address] Fax: Dialysis Facility (if applicable) Name: [facility] Address: Dialysis Schedule: Phone: Fax: Cold Storage Superintendent/Prosthetic Dentist signature: ICIAN SECTION Name: Mel Pop Prognosis: good Condition at Discharge: stable Rehab Potential (if transferring to Rehab): good Recommended Labs or Other Treatments After Discharge: none The individual is being admitted to a nursing facility directly from an [facility] or a unit of a [facility] that is not operated by or licensed by [facility] under section 5119.14 or 5160-3-15.1 5 The individual requires the level of services provided by a nursing facility for the condition for which he or she was treated in the hospital and, Physician Certification: I certify the above information and transfer of Mel Pop is necessary for the continuing treatment of the diagnosis listed and that she requires retirement facility for less than 30 days. Update Admission H&P: No change in H&P PHYSICIAN SIGNATURE: documented in this encounter [facility] 08-14-2024 Note Formatting of this n ote might be different from the original. Pt has Been accepted to [facility]. Need PT/OT to see so auth to be started. Therapy to see today was sent. Called and spoke with braxton [facility]ozo. SNF tasked w update. CM to follow. [facility] 08-14-2024 Note Formatting of this n ote might be different from the original. Pt has Been accepted to [facility]. Need PT/OT to see so auth to be started. Therapy to see today was sent. Called and spoke with braxton [facility]. SNF tasked w update. CM to follow. [facility] 08-13-2024 Plan of care note Problem: [...] My discharge needs are met Outcome: Progressing [facility] 08-13-2024 Note Formatting of this n ote might be different from the original. Referral placed to [facility] per [facility] request. Await review and response regarding ability to accept. TCC notified. Electronically signed by Christine Morataya [facility], 08-13-2024 at 3:00 PM [facility] 08-13-2024 Note Formatting of this n ote might be different from the original. Referral placed to [facility] via [facility] per TCC request. Await review and response regarding ability to accept. TCC notified. Electronically signed by Christine Morataya CMA, 08-13-2024 at 3:00 PM [facility] 08-13-2024 Note Referral placed to [facility] per [facility]CC request. Await review and response regarding ability to accept. TCC notified. Electronically signed by Christine Morataya CMA, 08-13-2024 at 3:00 PM [facility] 08-13-2024 Note Formatting of this n ote might be different from the original. Called dgt to talk about dc planning. Dgt continues to tour SNFs this evening, since she was sick this weekend. Provided me with two more SNF choices. [facility]. Tasked [facility] to create these referrals. CM to follow. [facility] 08-13-2024 Note Formatting of this n ote might be different from the original. Called dgt to talk about dc planning. Dgt continues to tour SNFs this evening, since she was sick this weekend. Provided me with two more SNF choices. [facility]. Tasked [facility] to create these referrals. CM to follow. [facility] 08-13-2024 Plan of care note Problem: [...] My discharge needs are met Outcome: Progressing [facility] 08-12-2024 Note Problem: Knowledge D eficit Goal: Patient/family/caregiver demonstrates understanding of disease process, treatment plan, medications, and discharge instructions Outcome: Progressing [facility] 08-12-2024 Plan of care note Problem: Knowledge Deficit Goal: Patient/family/caregiver demonstrates understanding of disease process, treatment plan, medications, and discharge instructions Outcome: Progressing [employer] [facility] [employer] 08-12-2024 Plan of care note Problem: Knowledge [...] My discharge needs are met Outcome: Progressing [facility] [employer] 08-11-2024 Plan of care note Problem: Knowledge [...] My discharge needs are met Outcome: Progressing [facility] [employer] 08-11-2024 Note Formatting of this n ote might be different from the original. CM noted DC orders in place, Dgt touring facilities over the weekend. [facility] pending acceptance, updates sent via [facility]. [facility] [employer] 08-11-2024 Note Formatting of this n ote might be different from the original. CM noted DC orders in place, Dgt touring facilities over the weekend. [facility] pending acceptance, updates sent via [facility]. [facility] 08-11-2024 Plan of care note Problem: Knowledge [...] Interventions Goal: Assess Nutritional Intake Outcome: Progressing [facility] 08-10-2024 Note Formatting of this n ote might be different from the original. Referral placed to [facility] via [facility] per TCC request. Await review and response regarding ability to accept. TCC notified. Electronically signed by Christine Morataya [facility], 08-10-2024 at 9:23AM [facility] 08-10-2024 Note Formatting of this n ote might be different from the original. Referral placed to [facility] via [facility] per TCC request. Await review and response regarding ability to accept. TCC notified. Electronically signed by Christine Morataya CMA, 08-10-2024 at 9:23AM [facility] 08-10-2024 Note Referral placed to [facility] via [facility] per TCC request. Await review and response regarding ability to accept. TCC notified. Electronically signed by Christine Morataya CMA, 08-10-2024 at 9:23AM [facility] 08-10-2024 Note Formatting of this n ote might be different from the original. Pt was to be DC to [facility]. Found out pt and dtr didn't want to return to [facility]. SNF was made aware. On adm spoke with Dtr Fidel, ok to return. Called Dtr this am, after speaking with pt and things that happened and didn't happen. Fidel requesting a referral to be made to [facility]. MANAGER CLINICAL APPLICATIONS tasked to send. A SNF list was emailed to [email or web address]. She will tour facilities over weekend. CM to follow. [facility] 08-10-2024 Note Formatting of this n ote might be different from the original. Pt was to be DC to [facility]. Found out pt and dtr didn't want to return to [facility]. SNF was made aware. On adm spoke with Dtr Fidel, ok to return. Called Dtr this am, after speaking with pt and things that happened and didn't happen. Fidel requesting a referral to be made to [facility]. [facility] tasked to send. A SNF list was emailed to [email or web address]. She will tour facilities over weekend. CM to follow. [facility] 08-10-2024 Plan of care note Problem: [...] Interventions Goal: Assess Nutritional Intake Outcome: Progressing [facility] 08-09-2024 Note Formatting of this n ote might be different from the original. Discharge summary and med list sent via [facility] to [facility] per [facility] request. [facility] 08-09-2024 Note Formatting of this n ote might be different from the original. Discharge summary and med list sent via [facility] to [facility] per [facility] request. [facility] 08-09-2024 Note Discharge summary an d med list sent via [facility] to [facility] per [facility] request. [facility] 08-09-2024 Note Formatting of this n ote might be different from the original. Auth received. Patient with active dc orders. Transportation arranged through [employer] with estimated picker machine operator time of 1930. VM left with daughter Fidel along with 3N phone number to call with questions. Bedside RN aware. Facility updated. [facility] bailer tenders supervisor sent orders to [facility]. [facility] 08-09-2024 Note Formatting of this n ote might be different from the original. Auth received. Patient with active dc orders. Transportation arranged through [employer] with estimated picker machine operator time of 1930. VM left with daughter Fidel along with 3N phone number to call with questions. Bedside RN aware. Facility updated. [facility] bailer tenders supervisor sent orders to [facility]. [facility] 08-09-2024 Note Formatting of this n ote might be different from the original. logistics analytics manager was asked to assist with setting up transport back to [facility] this evening. home attendant had already done so, but this senior clinical study manager called daughter to inform her of discharge and transport set up. Daughter did not wish patient to return to the SNF. Branch Operations Manager told her that patient is medically stable for dc and that she should continue the discussion with the social service technician and senior linux unix administrator at The snf, and also get options from [employer]. Coordinator was to message the snf about return this evening via [facility]. [facility] 08-09-2024 Note Formatting of this n ote might be different from the original. logistics analytics manager was asked to assist with setting up transport back to [facility] this evening. home attendant had already done so, but this senior clinical study manager called daughter to inform her of discharge and transport set up. Daughter did not wish patient to return to the SNF. Branch Operations Manager told her that patient is medically stable for dc and that she should continue the discussion with the social service technician and senior linux unix administrator at The snf, and also get options from [employer]. Coordinator was to message the snf about return this evening via [facility]. [facility] 08-09-2024 Note [facility] 08-09-2024 Hospital course Narrative Hospitalist Discharge [...] an 83 y/o female who presented to [facility] early this AM from local DC for vomiting and diarrhea. Patient reported she [...] Ellipta 100-62.5-25 MCG/ACT aerosol powder Generic drug: Jhkdgmlyvlk-Ltnmiyyes-Potlgm STOP taking these medications enoxaparin 80 MG/0.8ML [...] Complexity: follow up within 7-14 calendar days (73498) [x] Severe Complexity: follow up within 7 calendar days (63986) Follow up Testing, Pending results or Referrals [...] Kael Anderson DO Division of Hospitalist Medicine [facility] 08/09/2024, 4:23 PM documented in this encounter [facility] 08-09-2024 Note Formatting of this n ote might be different from the original. Updated PT/OT notes placed to [facility] via [facility] per TCC request. Await review and response regarding ability to accept. TCC notified. Electronically signed by [facility] Aracelis Gardiner [facility] 08-09-2024 Note Formatting of this n ote might be different from the original. Updated PT/OT notes placed to [facility] via [facility] per TCC request. Await review and response regarding ability to accept. TCC notified. Electronically signed by [facility] Aracelis Gardiner [facility] 08-09-2024 Note Formatting of this n ote might be different from the original. Patient is medically ready for dc. PT/OT both continuing to recommend SNF. MANAGER CLINICAL APPLICATIONS senior clinical study manager asked to start auth. Plan to dc back to [facility] pending auth [facility] 08-09-2024 Note Formatting of this n ote might be different from the original. Patient is medically ready for dc. PT/OT both continuing to recommend SNF. MANAGER CLINICAL APPLICATIONS senior clinical study manager asked to start auth. Plan to dc back to [facility] pending auth [facility] 08-08-2024 Note Formatting of this n ote might be different from the original. I was off Yesterday, PT note was in from Tuesday. Therapy to see today was sent out to OT Tuesday to see yester. Pt was not seen. I did sent a therapy to see today to PT/OT so an auth can be started. Pt will Be Dc'd to [facility]. CM to follow. ower 08-08-2024 Note Formatting of this n ote might be different from the original. I was off Yesterday, PT note was in from Tuesday. Therapy to see today was sent out to OT Tuesday to see yester. Pt was not seen. I did sent a therapy to see today to PT/OT so an auth can be started. Pt will Be Dc'd to [facility]. CM to follow. ower 08-07-2024 Plan of care note Problem: Knowledge Deficit Goal: Patient/family/caregiver demonstrates understanding of disease process, treatment plan, medications, and discharge instructions Outcome: Progressing Problem: Potential for Compromised Skin Integrity Goal: Skin Integrity is Maintained or Improved Outcome: Progressing Goal: Nutritional status is improving Outcome: Progressing ower 08-07-2024 Plan of care note Problem: Knowledge [...] Interventions Goal: Assess Nutritional Intake Outcome: Progressing ower 08-07-2024 Note Formatting of this n ote might be different from the original. Case Management Progress Note: Patient remains on 5N for concern with aspiration 2/2 vomiting. Discharge Plan: Return to [facility]. Therapy eval needed for precert. TCC to assist and follow as needed. [employer] [facility] [employer] 08-07-2024 Note Formatting of this n ote might be different from the original. Case Management Progress Note: Patient remains on 5N for concern with aspiration 2/2 vomiting. Discharge Plan: Return to [facility]. Therapy eval needed for precert. TCC to assist and follow as needed. [employer] 08-07-2024 Plan of care note Problem: Knowledge [...] Interventions Goal: Assess Nutritional Intake Outcome: Progressing [employer] 08-06-2024 Plan of care note Problem: Knowledge [...] Interventions Goal: Assess Nutritional Intake Outcome: Progressing [employer] 08-06-2024 Note Formatting of this n ote might be different from the original. Pt cont's on IV AtBs'. Plan is for pt to return to [facility]. Auth and HECTOR needed prior to DC. CM to follow. [facility] [employer] 08-06-2024 Note Formatting of this n ote might be different from the original. Pt cont's on IV AtBs'. Plan is for pt to return to [facility]. Auth and HECTOR needed prior to DC. CM to follow. [facility] [employer] 08-06-2024 Note Formatting of this n ote might be different from the original. Per attending pt ready for DC. [facility] Pt needs PT/OT to start auth Therapy to see put in for alistair so auth can be started. HECTOR will need completed. CM to follow. [employer] [facility] [employer] 08-06-2024 Note Formatting of this n ote might be different from the original. Per attending pt ready for DC. Pt will return to [facility]. Pt needs PT/OT to start auth Therapy to see put in for alistair so auth can be started. HECTOR will need completed. CM to follow. [employer] [facility] [employer] 08-06-2024 Consult note Associated Order (s): IP [...] assess Fluid Accumulation: No significant fluid accumulation Therapeutic Specialist Strength: Not Performed Nutrition Assessment: Pt hx HTN, stroke, COPD, CKD, IBS. Admitted w/ vomiting and diarrhea. +norovirus. Started on abx for concern of aspiration pna. Pt's symptoms have improved during admission. Consuming and tolerating CLD. Medically stable for discharge back to SNF per notes. Estimated Daily Nutrient Needs: Energy Requirements Based On: Kcal/kg Weight Used for Energy Requirements: [place] Weight for Energy Calculation (kg): 54 kg Total Energy Requirements (kcals/day): 7721-1218 Weight Used for Protein Requirements: [place] Weight in Kg Used for Protein Requirements: [...] 160# 07/05) % Weight Change (Calculated): 12.2 [place] Body Weight (lbs) (Calculated): 119 lbs [place] Body Weight (Kg) (Calculated): 54 kg BMI [...] to determine Gabriella Michelle RD, LD Contact: [phone] [facility] 08-06-2024 Consult note Associated Order (s): [...] assess Fluid Accumulation: No significant fluid accumulation Therapeutic Specialist Strength: Not Performed Nutrition Assessment: Pt hx HTN, stroke, COPD, CKD, IBS. Admitted w/ vomiting and diarrhea. +norovirus. Started on abx for concern of aspiration pna. Pt's symptoms have improved during admission. Consuming and tolerating CLD. Medically stable for discharge back to SNF per notes. Estimated Daily Nutrient Needs: Energy Requirements Based On: Kcal/kg Weight Used for Energy Requirements: [place] Weight for Energy Calculation (kg): 54 kg Total Energy Requirements (kcals/day): 1287-7491 Weight Used for Protein Requirements: [place] Weight in Kg Used for Protein Requirements: 54 kg Estimated Total Protein (g/day): 54-65 Estimated Daily Total Fluid (ml/day): per MD Nutrition Related Findings: +BS. No edema. +I&O. Vincent 12 Wound Type: None BMP: Recent Labs 08/04/247 08/05/24 0358 08/05/24 2343 NA 139 134* 139 K 3.9 3.8 3.8 CL 112* 108* 115* CO2 21* 21* 17* BUN 26* 13 9 CREATININE 1.13* 0.89 0.91 GLUCOSE 153* 85 92 CALCIUM 8.2* 8.1* 8.4* HEPATIC: Recent Labs 08/04/2444608/05/24 0358 08/05/24 2343 AST [...] 160# 07/05) % Weight Change (Calculated): 12.2 [place] Body Weight (lbs) (Calculated): 119 lbs [place] Body Weight (Kg) (Calculated): 54 kg BMI [...] to determine Gabriella Michelle RD, LD Contact: [phone] documented in this encounter [facility] 08-06-2024 Plan of care note Problem: Knowledge Deficit Goal: Patient/family/caregiver demonstrates understanding of disease process, treatment plan, medications, and discharge instructions Outcome: Progressing Problem: Potential for Compromised Skin Integrity Goal: Skin Integrity is Maintained or Improved Outcome: Progressing Goal: Nutritional status is improving Outcome: Progressing Problem: Urinary Incontinence Goal: Perineal skin integrity is maintained or improved Outcome: Progressing [facility] 08-05-2024 Plan of care note Problem: Knowledge Deficit Goal: Patient/family/caregiver demonstrates understanding of disease process, treatment plan, medications, and discharge instructions Outcome: Progressing Problem: Potential for Compromised Skin Integrity Goal: Skin Integrity is Maintained or Improved Outcome: Progressing Goal: Nutritional status is improving Outcome: Progressing Problem: Urinary Incontinence Goal: Perineal skin integrity is maintained or improved Outcome: Progressing [facility] 08-04-2024 Plan of care note Problem: Knowledge Deficit Goal: Patient/family/caregiver demonstrates understanding of disease process, treatment plan, medications, and discharge instructions Outcome: Progressing Problem: Potential for Compromised Skin Integrity Goal: Skin Integrity is Maintained or Improved Outcome: Progressing Goal: Nutritional status is improving Outcome: Progressing Problem: Urinary Incontinence Goal: Perineal skin integrity is maintained or improved Outcome: Progressing [facility] 08-04-2024 Nurse Note Bedside swallow completed. Pt passed and tolerated well tolerated well. [facility] 08-04-2024 Plan of care note Problem: Knowledge Deficit Goal: Patient/family/caregiver demonstrates understanding of disease process, treatment plan, medications, and discharge instructions Outcome: Progressing Problem: Potential for Compromised Skin Integrity Goal: Skin Integrity is Maintained or Improved Outcome: Progressing Goal: Nutritional status is improving Outcome: Progressing Problem: Urinary Incontinence Goal: Perineal skin integrity is maintained or improved Outcome: Progressing [facility] 08-03-2024 Plan of care note Problem: Knowledge [...] 0842 by Lima Saenz RN Outcome: Progressing [facility] 08-03-2024 Note Formatting of this n ote might be different from the original. Return referral placed to [facility] via [facility] per TCC request. Await review and response regarding ability to accept. TCC notified. [facility] 08-03-2024 Note Formatting of this n ote might be different from the original. Return referral placed to [facility] via [facility] per TCC request. Await review and response regarding ability to accept. TCC notified. [facility] 08-03-2024 Note Return referral plac ed to [facility] via [facility] per [facility] request. Await review and response regarding ability to accept. TCC notified. [facility] 08-03-2024 Note Formatting of this n ote might be different from the original. Pt to ED w N/V/Diarrhea, was Dx w Aspiration pneumonitis. Started on IV ATB's. Called pt's Dtr, Fidel, . Pt is from [facility]. Plan on returning. [facility] tasked to send a return referral. [facility] 08-03-2024 Note Formatting of this n ote might be different from the original. Pt to ED w N/V/Diarrhea, was Dx w Aspiration pneumonitis. Started on IV ATB's. Called pt's Dtr, Fidel, . Pt is from [facility]. Plan on returning. [facility] tasked to send a return referral. [facility] 08-03-2024 History and physical note Attending History and Physical Admit Date: 08/03/2024 PCP: Jared Evans MD CHIEF COMPLAINT: vomiting/diarrhea Reason for Admission: aspiration pneumonitis History Obtained From: patient HISTORY OF PRESENT ILLNESS: Mel is a 83 y.o. female with past medical history below who presents with chief complaint listed above.Patient is an 83 y/o female who presented to [facility] early this AM from local DC for vomiting and diarrhea. Patient reported she [...] Resource Strain: Low Risk (06/20/2024) Received from [facility] Overall Financial Resource Strain (CARDIA) [...] min Stress: Patient Unable To Answer (08/03/2024) [place] [employer] - Occupational Stress Questionnaire Feeling of Stress : Patient unable to answer Social Connections: Unknown (08/03/2024) Social Connection and Isolation Panel [NHANES] Frequency of Communication with Friends and Family: Patient unable to answer Frequency of Social Gatherings with Friends and Family: Patient unable to answer Attends Mu-Ism Services: Patient unable to answer Active Member of Clubs or Organizations: Patient unable to answer Attends Club or Organization Meetings: Never Marital Status: Patient unable to answer Recent Concern: Social Connections - Moderately Isolated (06/20/2024) Received from [facility] Social Connection and Isolation Panel [NHANES] Frequency of Communication with Friends and Family: More than three times a week Frequency of Social Gatherings with Friends and Family: Once a week Attends Mu-Ism Services: More than 4 times per year [...] RDW 19.4* PLT 303 BMP: Recent Labs 08/03/2425008/03/24 0405 NA 139 138 K 5.9* 4.3 CL 109* -- CO2 21* -- BUN 34* -- CREATININE 1.30* 1.3 GLUCOSE 103 -- CALCIUM 9.0 -- ANIONGAP 9 -- LIVER PROFILE: Recent Labs 08/03/24 025 AST 36* ALT 26 BILITOT 0.7 ALKPHOS [...] mgmt was pursued: - inpatient admission to [facility] tele - check stool studies and [...] - DO NOT do CPR, intubation] [_] [DNR-INSULATION PACKER - Comfort care only] [_] DNR form [...] Shivani Dimas PA-C Division of Hospitalist Medicine [facility] Cosigned by Abbi Long DO at [...] sounds present no guarding or regular rigidity [employer] Work Phone: 08-03-2024 Note [employer] [facility] 08-03-2024 History and physical note Attending History and Physical Admit Date: 08/03/2024 PCP: Jared Evans MD CHIEF COMPLAINT: vomiting/diarrhea Reason for Admission: aspiration pneumonitis History Obtained From: patient HISTORY OF PRESENT ILLNESS: Mel is a 83 y.o. female with past medical history below who presents with chief complaint listed above.Patient is an 83 y/o female who presented to [facility] early this AM from local [place] for vomiting and diarrhea. Patient reported she [...] Resource Strain: Low Risk (06/20/2024) Received from [facility] Overall Financial Resource Strain (CARDIA) [...] min Stress: Patient Unable To Answer (08/03/2024) [place] [employer] - Occupational Stress Questionnaire Feeling of Stress : Patient unable to answer Social Connections: Unknown (08/03/2024) Social Connection and Isolation Panel [NHANES] Frequency of Communication with Friends and Family: Patient unable to answer Frequency of Social Gatherings with Friends and Family: Patient unable to answer Attends Mu-Ism Services: Patient unable to answer Active Member [...] Friends and Family: Once a week Attends Mu-Ism Services: More than 4 times per year [...] mgmt was pursued: - inpatient admission to [facility] tele - check stool studies and [...] - DO NOT do CPR, intubation] [_] [DNR-INSULATION PACKER - Comfort care only] [_] DNR form [...] Shivani Dimas PA-C Division of Hospitalist Medicine [facility] Cosigned by Abbi Long DO at [...] or regular rigidity documented in this encounter [facility] [employer] 08-03-2024 Plan of care note Problem: Potential for Compromised Skin Integrity Goal: Skin Integrity is Maintained or Improved 08/03/2024 0842 by Lima Saenz RN Outcome: Progressing 08/03/2024 0842 by Lima Saenz RN Outcome: Progressing Problem: Potential for Compromised Skin Integrity Goal: Nutritional status is improving 08/03/2024 0842 by Lima Saenz RN Outcome: Progressing 08/03/2024 0842 by Lima Saenz RN Outcome: Progressing [facility] [employer] 08-03-2024 Plan of care note Problem: Knowledge Deficit Goal: Patient/family/caregiver demonstrates understanding of disease process, treatment plan, medications, and discharge instructions Outcome: Progressing Problem: Potential for Compromised Skin Integrity Goal: Skin Integrity is Maintained or Improved Outcome: Progressing [facility] [employer] 08-03-2024 Emergency department Note Pt placed in roundtrip [facility] [employer] 08-03-2024 Emergency department Note Pt placed in [...] who presents to the emergency department from [facility] for acute onset nausea/vomiting/diarrhea x 3 episodes that began 45 minutes prior to arrival. No blood in emesis or diarrhea. Given single dose of Zofran by [facility]pc staff following first episode but subsequently soon [...] 45 minutes prior to ED transport for [facility]. [facility] reports a second resident with similar symptoms earlier today. No known flu or COVID exposures. Patient denying other flu or COVID symptoms such as headache, myalgias, fevers, congestion, cough. Nursing Notes were reviewed. Limitations to history: None Outside historians: [facility] staff (Jabari) REVIEW OF SYSTEMS Review of Systems Negative except per HPI PAST MEDICAL HISTORY Past Medical History: Diagnosis Date Arrhythmia PAF Asthma Chronic kidney disease COPD (chronic obstructive pulmonary disease) (HCC) DVT (deep venous thrombosis) (HCC) Essential hypertension 03/07/2020 GERD (gastroesophageal reflux disease) Hiatal hernia IBS (irritable bowel syndrome) Pure hypercholesterolemia 03/07/2020 PVD (peripheral vascular disease) ([facility]) Stroke ([facility]) SURGICAL HISTORY Past Surgical History: Procedure Laterality [...] Resource Strain: Low Risk (06/20/2024) Received from [facility] Overall Financial Resource Strain (CARDIA) Difficulty of Paying Living Expenses: Not very hard Food Insecurity: No Food Insecurity (07/09/2024) Received from [facility] Hunger Vital Sign Worried About Running Out of Food in the Last Year: Never true Ran Out of Food in the Last Year: Never true Transportation Needs: No Transportation Needs (07/09/2024) Received from [facility] PRAPARE - Transportation Lack of Transportation (Medical): No Lack of Transportation (Non-Medical): No Physical Activity: Inactive (04/04/2024) Exercise Vital Sign Days of Exercise per Week: 0 days Minutes of Exercise per Session: 0 min Stress: No Stress Concern Present (06/19/2024) Received from [facility] [employer] - Occupational Stress Questionnaire Feeling of Stress : Not at all Social Connections: Moderately Isolated (06/20/2024) Received from [facility] Social Connection and Isolation Panel [NHANES] Frequency of Communication with Friends and Family: More than three times a week Frequency of Social Gatherings with Friends and Family: Once a week Attends Mu-Ism Services: More than 4 times per year Active Member of Clubs or Organizations: No Attends Club or Organization Meetings: Never Marital Status: Intimate Partner Violence: Not At Risk (06/19/2024) Received from [facility] Domestic Abuse Assessment Do you feel safe in your relationships at home?: Yes Physical Abuse: Denies Verbal Abuse: Denies Housing Stability: Low Risk (07/09/2024) Received from [facility] Housing Stability Vital Sign Unable [...] No bowel dilatation Report Dictated on Workstation: [employer] Electronically Signed By: Ming Fry MD Electronically Signed Date/Time: 08/03/2024 4:05 AM EST XR chest 1 view Final Result No acute abnormality Report Dictated on Workstation: [employer] Electronically Signed By: Ming Fry MD Electronically [...] In compliance with this authorization, please visit www.fda.gov/media/671818/download or www.fda.gov/media/592295/download to access the applicable information sheets. LIPASE [...] who presents to the emergency department from [facility] for acute onset nausea/vomiting/diarrhea x 3 episodes that began 45 minutes prior to arrival. No blood in emesis or diarrhea. Given single dose of Zofran by [facility] staff following first episode of emesis but [...] 45 minutes prior to ED transport for [facility]. [facility] reports a second resident with similar symptoms [...] baseline. Patient admitted to medical service at [facility] under Dr. Parrish. ED Medications managed: [...] IMPRESSION 1. Aspiration pneumonitis (CMS/HCC) ([facility]) 2. Vomiting and diarrhea 3. LORENZA (acute kidney injury) ([facility]) DISPOSITION Observation 08/03/2024 04:20:39 AM PATIENT [...] contact the dictating provider for clarification.) Mariana KingDO (electronically signed) Emergency Medicine Provider Mariana King DO 08/03/24 0422 documented in this encounter [facility] 08-03-[address] ED [address] and ED xray notified that patient is ready [facility] 08-03-2024 Physician Emergency department Note EMERGENCY DEPARTMENT [...] who presents to the emergency department from [facility] for acute onset nausea/vomiting/diarrhea x 3 episodes that began 45 minutes prior to arrival. No blood in emesis or diarrhea. Given single dose of Zofran by [facility] staff following first episode but subsequently soon [...] 45 minutes prior to ED transport for [facility]. [facility] reports a second resident with similar symptoms earlier today. No known flu or COVID exposures. Patient denying other flu or COVID symptoms such as headache, myalgias, fevers, congestion, cough. Nursing Notes were reviewed. Limitations to history: None Outside historians: [facility] staff (Jabari) REVIEW OF SYSTEMS Review of [...] Insecurity: No Food Insecurity (07/09/2024) Received from [facility] Hunger Vital Sign Worried About Running Out of Food in the Last Year: Never true Ran Out of Food in the Last Year: Never true Transportation Needs: No Transportation Needs (07/09/2024) Received from [facility] PRAPARE - Transportation Lack of Transportation (Medical): No Lack of Transportation (Non-Medical): No Physical Activity: Inactive (04/04/2024) Exercise Vital Sign Days of Exercise per Week: 0 days Minutes of Exercise per Session: 0 min Stress: No Stress Concern Present (06/19/2024) Received from [facility] [employer] - Occupational Stress Questionnaire Feeling of Stress : Not at all Social Connections: Moderately Isolated (06/20/2024) Received from [facility] Social Connection and Isolation Panel [NHANES] Frequency of Communication with Friends and Family: More than three times a week Frequency of Social Gatherings with Friends and Family: Once a week Attends Mu-Ism Services: More than 4 times per year Active Member of Clubs or Organizations: No Attends Club or Organization Meetings: Never Marital Status: Intimate Partner Violence: Not At Risk (06/19/2024) Received from [facility] Domestic Abuse Assessment Do you feel safe in your relationships at home?: Yes Physical Abuse: Denies Verbal Abuse: Denies Housing Stability: Low Risk (07/09/2024) Received from [facility] Housing Stability Vital Sign Unable [...] No bowel dilatation Report Dictated on Workstation: [employer] Electronically Signed By: Ming Fry MD Electronically Signed Date/Time: 08/03/2024 4:05 AM EST XR chest 1 view Final Result No acute abnormality Report Dictated on Workstation: [employer] Electronically Signed By: Ming Fry MD Electronically [...] In compliance with this authorization, please visit www.fda.gov/media/454401/download or www.fda.gov/media/540956/download to access the applicable information sheets. LIPASE [...] who presents to the emergency department from [facility] for acute onset nausea/vomiting/diarrhea x 3 episodes that began 45 minutes prior to arrival. No blood in emesis or diarrhea. Given single dose of Zofran by [facility] staff following first episode of emesis but [...] 45 minutes prior to ED transport for [facility]. [facility] reports a second resident with similar symptoms [...] baseline. Patient admitted to medical service at [facility] under Dr. Parrish. ED Medications managed: [...] IMPRESSION 1. Aspiration pneumonitis (CMS/HCC) ([facility]) 2. Vomiting and diarrhea 3. LORENZA (acute kidney injury) ([facility]) DISPOSITION Observation 08/03/2024 04:20:39 AM PATIENT [...] Medicine Provider Mariana King DO 08/03/24 0422 [facility] 08-01-2024 Instructions Savana Lopez MD - 08/01/2024 1:06 PM EST - Continue Pred forte 4x / day right eye - Stop Cipro - Stop Brimonidine - Continue erythromycin antibiotic ointment as needed - Continue Atropine daily RIGHT eye - Continue Timolol 2x / day RIGHT EYE documented in this encounter [facility] 08-01-2024 Note HNO ID: [id number] Author: SAVANA LOPEZ MD Service: ? Author Type: Physician Type: Progress Notes Filed: 08/01/2024 13:09 Note Text: POW #1 Choroidal drainage/PPV/EL/PFO/FAX/C3F8 (16%) RIGHT eye on 07/27/24 for choroidal hemorrhage and retinal detachment ([facility]hel[facility]/Luis Alberto) - LP vision - IOP good [...] choroidals (not yet appositional) - Evaluated at [place] 07/12/24 with intense nausea and multiple episodes [...] to HTN (SBP 199/99 at presentation to [facility]) and anticoagulation that led to angle closure [...] agree with all of its relevant components. [facility] 08-01-2024 History of Present illness Narrative [...] to HTN (SBP 199/99 at presentation to [facility]) and anticoagulation that led to angle closure [...] its relevant components. documented in this encounter [facility] 07-30-2024 Note HNO ID: [id number] Author: JOHN PHELAN MD Service: ? Author [...] agree with all of its relevant components. [facility] 07-30-2024 Note HNO ID: [id number] Author: JOHN PHELAN MD Service: ? Author [...] agree with all of its relevant components. [facility] 07-27-2024 Instructions Nicolas Sahu MD - [...] day Ciprofloxacin (flores cap) 4x daily Atropine (red mud thickener operator) 1x daily Continue timolol (yellow cap) 2x [...] C Trouble breathing Contact Dr. Savana Lopez [phone] weekdays from 8am-5pm During non-business hours, please call [phone] or ext [phone] and ask for the eye doctor highway traffic control technician. documented in this encounter [facility] 07-27-2024 Note HNO ID: [id number] Author: NICOLAS SAHU MD Service: ? Author [...] scheduled Nicolas Sahu MD Vitreoretinal Surgery Fellow [facility] 07-27-2024 History of Present illness Narrative [...] Vitreoretinal Surgery Fellow documented in this encounter [facility] 07-27-2024 Note HNO ID: [id number] Author: MIKHAIL NICHOLS APRN.LOOM MECHANIC Service: ? Author Type: Nurse Tester Waste Disposal Leakage Type: Anesthesia Procedure Notes Filed: 07/27/2024 11:25 Note Text: ANESTHESIOLOGY PROCEDURE NOTE Airway General Information Procedure Start Time/Medication Administration: 07/27/2024 11:21 AM Procedure End Time: 07/27/2024 11:24 AM Staffing Anesthesiologist: Robinson Brunner MD LOOM MECHANIC: Mikhail Nichols APRN.LOOM MECHANIC Performed by: anesthesiologist and LOOM MECHANIC Indications and Patient Condition Indications for airway management: anesthesia Preoxygenated: yes Patient position: sniffing Method: asleep Final Airway Details Final airway type: supraglottic airway Number of attempts at approach: 1 Final Supraglottic Airway: LMA Classic Size 4 Seal Adequate: yes Failed airway: no Unrecognized esophageal intubation: no SIGNATURE: Mikhail Nichols APRN.LOOM MECHANIC PATIENT NAME: Mel Castillo DATE: July 27, 2024 TIME: 11:24 AM CSN: [id number] [facility] 07-24-2024 Note Date of Procedure 07/23/2024. Curing Oven Tender Information Principal Ios Developer: WESLEY. Start time: 10:44 AM. No view. In wheelchair. Unable to get low enough for photo in downgaze without discomfort. Notes Hazy view, VH; choroidals; possible RD [facility] 07-24-2024 Note Date of Procedure 07/23/2024. Curing Oven Tender Information STEWART Donovan CDOS 07/23/2024 11:24 AM [...] 20mg - Decrease atropine daily right eye (red mud thickener operator) - Continue prednisolone QID right eye (pink [...] 30 days before your surgery. My surgical technology instructor will be contacting you to schedule this appointment. Your exact time of surgery will not be determined until the day before surgery. My surgical technology instructor will call you the day before your surgery to advise you what time to arrive at the Surgery [facility] on the first floor at the [facility]. My surgical technology instructor is Gaston, her number is [phone] Please do no wear contact lenses. We [...] retina fellow. It will be at the [facility] on the 2nd floor. We will [...] Regine Gan in the Pre-anesthesia Consultation Clinic ([phone]) to get instructions on their use before [...] or a Pre-Anesthesia Testing cylinder steamer at [phone]. documented in this encounter [facility] 07-23-2024 Note HNO ID: [id number] Author: SAVANA LOPEZ MD Service: ? Author [...] to HTN (SBP 199/99 at presentation to [facility]) and anticoagulation that led to angle closure [...] agree with all of its relevant components. [facility] 07-23-2024 History of Present illness Narrative [...] hemorrhage with repositioning of IOL (Chelita/Luis Alberto) - Today IOP low; from RD?? [...] its relevant components. documented in this encounter [facility] 07-18-2024 Note HNO ID: [id number] Author: JACI JUAREZ RN Service: Nursing Author Type: Registered Nurse Type: Progress Notes Filed: 07/18/2024 14:08 Note Text: Report given to nurse at [facility]. Transport running behind schedule. [facility] 07-16-2024 Note HNO ID: [id number] Author: MICHAEL SOARES MD Service: Ophthalmology Author Type: Resident Type: Plan of Care Filed: 07/16/2024 21:02 Note Text: Patient evaluated today at [facility] by retina attending Dr. Lopez. Assessment/plan [...] choroidals (not yet appositional) - Evaluated at [facility] 07/12/24 with intense nausea and multiple episodes [...] to HTN (SBP 199/99 at presentation to [facility]) and anticoagulation that led to angle closure [...] exam; not much but got some drainage 12/27/24 (1 week since onset); may require another surgery for more drainage once opacities more liquefied and PPV with 6 mm cannula - Unfortunately need to wait for more liquefaction; she does not need to be admitted for this but may need retirement facility due to limited vision in her monocular eye; she has a very poor prognosis; there is no guarantee surgery will improve her vision but need to wait for any possible surgery for more liquefaction; maybe could do 07/31/24? - I will see her in 1 week for repeat B-scan OD / Optos OD" [facility] 07-16-2024 Note HNO ID: [id number] Author: ALAINA TIPTON RN Service: ? Author [...] Doctor Josep, on the division, and aware. [facility] 07-16-2024 Note HNO ID: [id number] Author: TRACEY NANCE RN Service: Care Management Author Type: Registered Nurse Type: Care Mgt Progress Note Filed: 07/16/2024 16:49 Note Text: CARE MANAGEMENT PROGRESS NOTE SERVICE DATE: 07/16/2024 SERVICE TIME: 1:04 PM LOS: 9 days Post-Acute Discharge Planning Patient Goal(s): Increase strength [place] of Choice Explained: Discharge Planning Participant(s): Patient/Family Comments: Anticipated # of Days Until Discharge: 0 Transport at Discharge: Needs Prior to Discharge: Needs Prior to Discharge: OT/PT Evaluation Post-Acute Discharge Plan: Discharge to [facility] per FOC. Await updated PT for pre cert initiation. SIGNATURE: Tracey Nance RN PATIENT NAME: Mel Castillo DATE: July 16, 2024 TIME: 1:04 PM [facility] 07-16-2024 Note Date of Procedure 07/16/2024. Curing Oven Tender Information Principal Ios Developer: Arin Vital. Start time: 8:56 AM. Stop time: 8:56 AM. 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 Curing Oven Tender Information STEWART Donovan 07/16/2024 9:34 AM . [...] choroidals (not yet appositional) - Evaluated at [facility] 07/12/24 with intense nausea and multiple episodes [...] to HTN (SBP 199/99 at presentation to [facility]) and anticoagulation that led to angle closure [...] be admitted for this but may need retirement facility due to limited vision in her [...] its relevant components. documented in this encounter [facility] 07-16-2024 Note HNO ID: [id number] Author: SAVANA LOPEZ MD Service: ? Author [...] choroidals (not yet appositional) - Evaluated at [facility] 07/12/24 with intense nausea and multiple episodes [...] to HTN (SBP 199/99 at presentation to [facility]) and anticoagulation that led to angle closure [...] be admitted for this but may need retirement facility due to limited vision in her [...] of its relev (more content not included)... [facility] 07-16-2024 Note HNO ID: [id number] Author: BRIANA PRITCHARD MD Service: General Internal Medicine Author Type: Physician Type: Progress Notes Filed: 07/16/2024 14:26 Note Text: Internal Medicine - Dae Chaudhry Progress Note Patient Name: Mel Castillo [address] Admission Date: 07/07/2024 Length of Stay: 9 Primary Service: DAE Chaudhry Staff: Briana Pritchard MD Primary Service: Dae Chaudhry INTERVAL HISTORY: - No acute events overnight. Bradycardic to 50s overnight but this AM HDS and afebrile - This AM seen by ophthalmology at [facility] Opt appointment Objective MEDICATIONS: Current Facility-Administered Medications [...] Drain Duration External Collection Device 07/15/24 [facility] <1 day Intake/Output 07/12/24 0700 - [...] PMH of COPD (more content not included)... [facility] 07-15-2024 Note HNO ID: [id number] Author: OTILIO GERBER MD Service: Ophthalmology Author [...] to HTN (SBP 199/99 at presentation to [facility]) that caused angle closure and elevated IOP [...] BRING PATIENT DOWN FOR FOLLOW UP [facility] - Post-op precautions reviewed, including: Signs and symptoms of endophthalmitis, and retinal detachment warning signs reviewed, including increasing floaters, flashes or changes in peripheral vision. [facility] 07-15-2024 Note HNO ID: [id number] Author: BRIANA PRITCHARD MD Service: General Internal Medicine Author Type: Physician Type: Progress Notes Filed: 07/15/2024 12:59 Note Text: Internal Medicine - Dae Chaudhry Progress Note Patient Name: Mel Castillo [address] Admission Date: 07/07/2024 Length of Stay: 8 [...] % Max: 99 % Pain Level: 7 (07/15/245) GENERAL: No acute distress, alert and oriented [...] 9.1 9.3 9.3 (more content not included)... [facility] 07-14-2024 Note HNO ID: [id number] Author: BRIANA PRITCHARD MD Service: Hospital Medicine Author Type: Physician Type: Progress Notes Filed: 07/14/2024 13:37 Note Text: Internal Medicine - Dae Chaudhry Progress Note Patient Name: Mel Castillo [address] Admission Date: 07/07/2024 Length of Stay: 7 Primary Service: DAE Chaudhry Staff: Briana Pritchard MD Primary Service: aDe Chaudhry INTERVAL HISTORY: - NAEO. - Afebrile. [...] Castillo is a (more content not included)... [facility] 07-14-2024 Note HNO ID: [id number] Author: NICOLAS SAHU MD Service: Ophthalmology Author [...] choroidals (not yet appositional) - Evaluated at [facility] 07/12/24 with intense nausea and multiple episodes [...] vision. Nicolas Sahu MD Vitreoretinal Surgery Fellow [facility] 07-13-2024 Note HNO ID: [id number] Author: MARCIA MARTINS APRN.LOOM MECHANIC Service: ? Author Type: Nurse Tester Waste Disposal Leakage Type: Anesthesia Procedure Notes Filed: 07/13/2024 12:43 Note Text: ANESTHESIOLOGY PROCEDURE NOTE Airway General Information Procedure Start Time/Medication Administration: 07/13/2024 12:28 PM Procedure End Time: 07/13/2024 12:42 PM Patient location during procedure: OR Timeout Performed Pre-procedure: timeout performed Consent Obtained: Yes Patient identity confirmed: arm band, care cylinder steamer and patient Staffing LOOM MECHANIC: Marcia Martins APRN.LOOM MECHANIC Performed by: CARIE Indications and Patient Condition Indications for airway management: anesthesia Preoxygenated: yes anesthesia circuit Method: sleep Difficult Mask: No Final Airway Details Final airway type: supraglottic airway Number of attempts at approach: 1 Final Supraglottic Airway: Supraglottic airway: ambu auraonce. Size 4 Seal Adequate: yes Failed airway: no Unrecognized esophageal intubation: no Airway not difficult Comments atraumatic SIGNATURE: Marcia Martins APRN.LOOM MECHANIC PATIENT NAME: Mel Castillo DATE: July 13, 2024 TIME: 12:42 PM CSN: [id number] [facility] 07-13-2024 Note HNO ID: [id number] Author: FELICIA LEVY MD Service: General Internal [...] of vision now s/p laser iridotomy at [facility] then trasnferred to [facility] for further management. S/p multiple peripheral [...] mg ORAL DAILY (more content not included)... [facility] 07-12-2024 Note HNO ID: [id number] Author: TRACEY NANCE RN Service: Care Management Author Type: Registered Nurse Type: Care Mgt Progress Note Filed: 07/12/2024 16:50 Note Text: CARE MANAGEMENT PROGRESS NOTE SERVICE DATE: 07/12/2024 SERVICE TIME: 4:46 PM LOS: 5 days Post-Acute Discharge Planning Patient Goal(s): Increase strength [place] of Choice Explained: Discharge Planning Participant(s): Patient/Family Comments: Anticipated # of Days Until Discharge: 0 Transport at Discharge: Needs Prior to Discharge: Post-Acute Discharge Plan: Await SNF choices spoke w/ daughter in law Fidel Garcia sent to [facility] yesterday. This CM reached out to [facility] via email for choices. Daughter In law cannot recall selections. covering CM will need to reach out to [facility] tomorrow for selections that were emailed to her. SIGNATURE: Tracey Nance RN PATIENT NAME: Mel Castillo DATE: July 12, 2024 TIME: 4:46 PM [facility] 07-12-2024 Note Date of Procedure 07/12/2024. Curing Oven Tender Information CHAR Veliz ROUB 07/12/2024 12:15 PM . Notes B scan OD: From wheelchair. Patient vomiting during this visit. Best images possible. 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 Possible increased height maximum now at 12:00 measuring 10.0 mm. 2) Not able to assess for mobility today due to patient discomfort 3) SRF over choroidals in three quadrants. [facility] 07-12-2024 Note Date of Procedure 07/12/2024. Curing Oven Tender Information Principal Ios Developer: JACQUELINE. Imaging Comments: Limited exam due to patient discomfort-best images possible . Notes Worsening choroid detachments [facility] 07-12-2024 Note HNO ID: [id number] Author: THOMAS SCHMITZ MD Service: ? Author Type: Resident Type: Progress Notes Filed: 07/12/2024 14:52 Note Text: Interval history: - Patient now endorsing 10/10, nausea and vomiting Assessment/Plan: PMH: COPD, HLD, [...] choroidals (not yet appositional) - Evaluated at [facility] 07/12/24 with intense nausea and multiple episodes [...] to HTN (SBP 199/99 at presentation to [facility]) that caused angle closure and elevated IOP [...] Resident, PGY-[address] Phelan [facility] 07-12-2024 History of Present illness Narrative Interval history: - Patient now endorsing 1010, [...] choroidals (not yet appositional) - Evaluated at [facility] 07/12/24 with intense nausea and multiple episodes [...] to HTN (SBP 199/99 at presentation to [facility]) that caused angle closure and elevated IOP [...] with Dr. Phelan documented in this encounter [facility] 07-12-2024 Note HNO ID: [id number] Author: FELICIA LEVY MD Service: General Internal [...] of vision now s/p laser iridotomy at [facility] then trasnferred to [facility] for further management. S/p multiple peripheral [...] possible dispo to SNF or home with [facility] (challenging given multiple daily eye drops and medications) - Rest per excellent note by resident Signature: Felicia Levy MD Date: 07/12/2024 Time: 1:27 PM Internal Medicine - Dae Chaudhry Progress Note Patient Name: Mel Castillo Patient Location: [address] [facility]/H060-31 Admission Date: 07/07/2024 Length of Stay: 5 [...] ORAL BID HYDROmorpho (more content not included)... [facility] 07-11-2024 Note HNO ID: [id number] Author: FELICIA LEVY MD Service: General Internal [...] of vision now s/p laser iridotomy at [facility] then trasnferred to [facility] for further management. S/p multiple peripheral [...] H PRN AL (more content not included)... [facility] 07-10-2024 Note HNO ID: [id number] Author: FELICIA LEVY MD Service: General Internal [...] of vision now s/p laser iridotomy at [facility] then trasnferred to [facility] for further management. S/p multiple peripheral [...] Name: Mel Castillo Patient Location: [facility] 0[facility]/H060-31 Admission Date: 07/07/2024 Length of Stay: [...] Range in last (more content not included)... [facility] 07-09-2024 Note HNO ID: [id number] Author: TRACEY NANCE RN Service: Care Management [...] Current Advance Directive: Health Care Power of Emotional Disabilities Teacher In Chart: Yes Up To Date and Valid: Yes Current Living Arrangements and Support Lives with: Alone Type of Residence: Mobile Home Support: Friends/neighbors, Family members How do you manage to accomplish the following: Independent: Ambulation;Bathe/Shower;Dress;Angélica g to the bathroom Needs Assistance: Meals/Meal Prep;Medication Management;Transportation to appointments/community Current Services/Equipment Discharge Planning Patient Goal(s): Increase strength [place] of Choice Explained: [place] of Choice Given: Yes Level of Care Discussed: Home Care Are you interested in bedside delivery of your medications? Yes Discharge Planning Participant(s): Caregiver;Family Patient/Family Comments: Fidel Hdez (Other) Caregiver Assessment: Caregiver is ready, willing and able to meet the patient's needs as recommended by the inter-professional team: (friends) Transport at Discharge: Transportation Arrangements: Car Destination: [id number] [place] [address] [address] [place] [address] Needs Prior to Discharge: Post-Acute Discharge Plan: Anticipate DC home with C 24-48 hours. HC referrals placed . Await OT evaluation. Patient lives alone in trailer , There are 4 steps to entrance, Using rolator prior to admission. Patient independent with ADL and assist with iADL prior to admission.Patient receives meals on wheels. Family transport to appointments and can provide parts driver assist. Family transport home. This CM spoke [...] DATE: July 09, 2024 TIME: 4:07 PM [facility] 07-09-2024 Note HNO ID: [id number] Author: NADIA VIDAL, Mabel Service: Pharmacy Author Type: [place] Type: Plan of Care Filed: 07/09/2024 12:31 Note Text: Insurance investigation completed Patient has active prescription insurance: Yes - Patient's insurance is in-network with [facility] Insurance loaded into [place]: Yes Test claim was completed to verify insurance is active: Successful Any questions, please reach out to your medication case coordinator. [facility] 07-09-2024 Note HNO ID: [id number] Author: GISSELL POPE RPh Service: Pharmacy Author Type: Pharmacist Type: Plan of Care Filed: 07/09/2024 12:32 Note Text: PHARMACY MEDICATION REVIEW Patient Name: Mel Castillo : 1940 The following medications were updated within the [facility] medication list: Medications ADDED to [facility] medication list Furosemide 40 mg prn swelling Medications CHANGED on [facility] medication list Lisinopril 10 mg changed to 40 mg Increased from 5 mg daily to 40 mg daily on last hospital discharge Medications REMOVED from [facility] medication list Albuterol HFA PRN Lidocaine 4% [...] Yes Completed by: Gissell Pope RPh All [facility] medications addressed by LIP Patient interested in Bedside Delivery Services or using OP Pharmacy at discharge? Yes. Discharge Pharmacy Updated Preferred outpatient pharmacy: [id number] [place] [address] [id number] [facility] Allergies: Percocet [Oxycodone* Itching [...] Inject 0.7 mL subcutaneously every 12 hours. uqohcfcjehn-vdsbqlcbg-dlutykxa (TRELEGY ELLIPTA) 100-62.5-25 mcg inhalation powder 07/06/2024 [...] None recorded 1 Gissell Pope [facility] 07/09/2024 [facility] 07-09-2024 Note HNO ID: [id number] Author: OTILIO GERBER MD Service: ? Author Type: Resident Type: Progress Notes Filed: 07/09/2024 10:33 Note Text: OPHTHALMOLOGY CONSULT PROGRESS NOTE Patient Name: Mel Castillo Patient Admission Date: 07/07/2024 Today's Date: 07/09/24 Interval history: - CT orbits reviewed with good globe contour no evidence of open globe, known choroidal detachments present -Still with 8/10 pain OD improved form 10/10 on presentation Assessment/Plan: PMH: COPD, HLD, HTN, [...] to HTN (SBP 199/99 at presentation to [facility]) that caused angle closure and elevated IOP [...] Follow up with Dr. Lopez Monday 07/16 [facility] eye clinic -Can continue anticoagulation -Patient [...] NLP vision Otilio Gerber MD Ophthalmology Resident [facility] Patient seen and discussed with Dr. Phelan [facility] 07-09-2024 History of Present illness Narrative [...] Follow up with Dr. Lopez Monday 07/16 [facility] eye clinic -Can continue anticoagulation -Patient [...] NLP vision Otilio Gerber MD Ophthalmology Resident [facility] Patient seen and discussed with Dr. Phelan documented in this encounter [facility] 07-09-2024 Note HNO ID: [id number] Author: FELICIA LEVY MD Service: General Internal [...] of vision now s/p laser iridotomy at [facility] then trasnferred to [facility] for further management. S/p multiple peripheral [...] does not last long enough. - Per mary carmen gallegos to discharge from their perspective. Has follow [...] (ml) -2 350 (more content not included)... [facility] 07-08-2024 Note HNO ID: [id number] Author: FELICIA LEVY MD Service: Hospital Medicine [...] of vision now s/p laser iridotomy at [facility] then trasnferred to [facility] for further management. Plan: - Ophthalmology consult - appreciate recs (on systemic prednisone and local treatment, serial exams). - Residents discussed with Ophtho - Ok to continue AC for afib and prior embolic strokes. Will keep on Enoxaparin 1 mg/kg BID - Rest per excellent note by resident Signature: Felciia Levy MD Date: 07/08/2024 Time: 11:41 AM Internal Medicine - Dae Chaudhry Progress Note Patient Name: Mel Castillo [address] Admission Date: 07/07/2024 Length of Stay: 1 [...] Admit LABS: CBC: Recent Labs 07/07/24 1853 (more content not included)... [facility] 07-07-2024 Note HNO ID: [id number] Author: JARED GILMORE MD Service: ? Author [...] components. Jared Gilmore MD Vitreoretinal Surgery Fellow [facility] 07-07-2024 History of Present illness Narrative [...] with Dr. Gilmore documented in this encounter [facility] 07-07-2024 Note [facility] 07-07-2024 Hospital course Narrative Discharge Summary [...] (HCC) DVT (deep venous thrombosis) ([facility]) Essential hypertension 03/07/2020 GERD (gastroesophageal reflux disease) Hiatal hernia IBS (irritable bowel syndrome) Pure hypercholesterolemia 03/07/2020 PVD (peripheral vascular disease) ([facility]) Stroke ([facility]) Procedures: multiple peripheral iridotomies Hospital Course: See [...] Ellipta 100-62.5-25 MCG/ACT aerosol powder Generic drug: Oqwrxxujgey-Nweoqtaov-Sjiymj STOP taking these medications albuterol 108 (90 [...] solution Recommended Follow-up: Tre Lombardi MD [address] [facility] [address] [id number] Call in 2 month(s) Need follow up in December 2024 for aneurysm surveillence Complexity of Follow up: [] Moderate Complexity: follow up within 7-14 calendar days (67360) [x] Severe Complexity: follow up within 7 calendar days (17030) - after DC from F Follow up Testing, Pending results or Referrals [...] Red Henderson DO Division of Hospitalist Medicine [facility] 07/07/2024, 11:08 AM documented in this encounter [facility] 07-07-2024 Nurse Note Report called to [facility]. [facility] 07-07-2024 Nurse Note Report called to [facility]. This RN called Protective Services to try and locate pts lost glasses from 07/05/2024. Glasses that match the description are in lost and found. Will attempt to see if glasses are a match. documented in this encounter [facility] 07-07-2024 Note Formatting of this n ote might be different from the original. Care Management Progress Note DC plan - Transfer to F. Received message from RN who reports pt has a bed at the [facility] and dc orders to go today and is requesting transportation be set up AIDAN. Transportation set up through roundtrip via cot with Ancelmo Hunter for 10:30am. RN, pt and pt's dtr Fidel notified of dc plan and transportation time. No add'l needs for dc noted or identified at this time. Length of Stay (Days): 0 GMLOS: 2.3 [facility] 07-07-2024 Note Formatting of this n ote might be different from the original. Care Management Progress Note DC plan - Transfer to [facility]. Received message from RN who reports pt has a bed at the [facility] and dc orders to go today and is requesting transportation be set up AIDAN. Transportation set up through roundtrip via cot with [employer] for 10:30am. RN, pt and pt's dtr Fidel notified of dc plan and transportation time. No add'l needs for dc noted or identified at this time. Length of Stay (Days): 0 GMLOS: 2.3 [facility] [employer] 07-07-2024 Miscellaneous Notes Care Management Progress Note DC plan - Transfer to [facility]. Received message from RN who reports pt has a bed at the [facility] and dc orders to go today and is requesting transportation be set up AIDAN. Transportation set up through roundtrip via cot with [employer] for 10:30am. RN, pt and pt's dtr [...] is working on this . With staff. [facility] she is agreeable to it if goes home . [employer] Mel Pop : 1940 Primary Care Physician: Jarde Evans MD The patient and/or family/surrogate voluntarily agreed to participate in ACP services. Patient s cognitive capacity: intact Code Status: [ ] [FULL CODE - Continue all advanced life support: CPR,intubation,invasive procedures] [ X ] [DNR-CCA - DO NOT do CPR, intubation] [_] [DNR-INSULATION PACKER - Comfort care only] [_] DNR form [...] and/or family/surrogate. Silvio Peres MD Acute care [facility] 07/05/2024, 1:18 PM documented in this encounter [facility] 07-07-2024 History of Present illness Narrative Nutrition rescreen completed. Chart reviewed. Patient to be monitored and followed by the diet optics test technician. Images from the original note were not included. PHYSICAL THERAPY [facility] Initial Evaluation Name/MRN: Mel Pop ([id number]) Evaluation Date: 07/06/2024 Date of : 1940 Admission Date: 07/05/2024 4:21 AM Age: 83 y.o. Room/Bed: [facility] Discharge Recommendation: Shelter Facility Equipment Needed: (tbd) Assessment IMPRESSION: The [...] COPD (chronic obstructive pulmonary disease) ([facility]) DVT (deep venous thrombosis) ([facility]) Essential hypertension 03/07/2020 GERD (gastroesophageal reflux disease) Hiatal hernia IBS (irritable bowel syndrome) Pure hypercholesterolemia 03/07/2020 PVD (peripheral vascular disease) ([facility]) Stroke ([facility]) Past Surgical History: Past Surgical History: [...] vessels of proximal lower extremity ([facility]) 04/14/2024 Peripheral arterial disease ([facility]) 04/03/2024 Immunodeficiency due to conditions classified elsewhere ([facility]) 07/27/2023 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 ([facility]) 07/27/2023 Bilateral pneumonia 06/16/2022 COVID-19 06/16/2022 Hypothyroidism 06/16/2022 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[facility]) 06/16/2022 Cellulitis 05/18/2022 Nicotine use disorder 05/18/2022 Acute venous embolism and thrombosis of deep vessels of proximal end of right lower extremity ([facility]) 04/19/2024 Atrial fibrillation, unspecified type ([facility]) 04/19/2024 Irritable bowel syndrome with diarrhea 03/07/2020 Microscopic hematuria 03/07/2020 Left retinal detachment 03/07/2020 Hyperglycemia 03/07/2020 Osteopenia of left femoral neck 03/07/2020 [facility] current use of anticoagulant therapy 03/07/2020 Seasonal allergies 03/07/2020 Chronic renal insufficiency, stage III (moderate) ([facility]) 03/07/2020 Major depression, single episode, in complete remission ([facility]) 03/07/2020 Gastroesophageal reflux disease without esophagitis 03/07/2020 Essential hypertension 03/07/2020 Pure hypercholesterolemia 03/07/2020 Overweight 03/07/2020 Psoriasis 03/07/2020 History of cerebrovascular accident 03/07/2020 Atrial fibrillation ([facility]) 03/07/2020 Chronic obstructive pulmonary disease ([facility]) 03/07/2020 Finger osteomyelitis, right ([facility]) 03/06/2020 Medical Precautions: No active isolations [...] support system of friends and family 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 Goals and/or treatment plan was established in collaboration with patient/family/other representatives. Hospitalist Progress Note 07/06/2024 Subjective: Admit Date: 07/05/2024 PCP: Jared Evans MD Room#: W3-324/W3-324 A BRIEF HOSPITAL COURSE: Per admitting hospitalist's [...] COPD (chronic obstructive pulmonary disease) ([facility]) DVT (deep venous thrombosis) ([facility]) Essential hypertension 03/07/2020 GERD (gastroesophageal reflux disease) Hiatal hernia IBS (irritable bowel syndrome) Pure hypercholesterolemia 03/07/2020 PVD (peripheral vascular disease) ([facility]) Stroke ([facility]) LABS: CBC: Recent Labs 07/05/24 0435 [...] Henderson DO Division of Hospitalist Medicine Acute [facility] documented in this encounter [facility] 07-06-2024 Nurse Note This RN called Protective Services to try and locate pts lost glasses from 07/05/2024. Glasses that match the description are in lost and found. Will attempt to see if glasses are a match. [facility] 07-06-2024 Telephone encounter Note TELEPHONE ENCOUNTER 07/06/2024 Patient with recent stroke and admitted to [facility] where she was noted to have elevated IOP with retinal detachment of the right eye 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 She has a history of RD in [...] optos OU Ryan Elizondo MD Ophthalmology Resident [facility] Work Phone: 07-06-2024 Miscellaneous Notes TELEPHONE ENCOUNTER 07/06/2024 Patient with recent stroke and admitted to [facility] where she was noted to have elevated IOP with retinal detachment of the right eye 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 She has a history of RD in [...] MD Ophthalmology Resident documented in this encounter [facility] 07-06-2024 Note Formatting of this n [...] is working on this . With staff. [facility] she is agreeable to it if goes home . [employer] 07-06-2024 Note Formatting of this n ote [...] is working on this . With staff. [facility] she is agreeable to it if goes home . [employer] 07-06-2024 Consult note Formatting of th is [...] referral to a retinal subspecialist at either [facility] or [facility] for repair of retinal detachment right eye (OD). Continue ophthalmic pressure lowering ophthalmic meds right eye (OD) until seen by retinal subspecialist. [employer] Phone: 07-06-2024 Consult note Formatting of th [...] referral to a retinal subspecialist at either [facility] or [facility] for repair of retinal detachment right eye [...] days. Associated Order(s): Inpatient consult to Endovascular Neurology--[facility] END[facility]OLOGY Inpatient consult to Endovascular Neurology--[facility] Consult performed by: Helga Naik, SEBASTIAN - BUSINESS EMPLOYMENT SPECIALIST Consult ordered by: Wm Nunes DO Reason [...] COPD (chronic obstructive pulmonary disease) ([facility]), DVT (deep venous thrombosis) ([facility]), Essential hypertension (03/07/2020), GERD (gastroesophageal reflux disease), Hiatal hernia, IBS (irritable bowel syndrome), Pure hypercholesterolemia (03/07/2020), PVD (peripheral vascular disease) ([facility]), and Stroke ([facility]). She has no past medical history of Cancer ([facility]/H[facility]) ([facility]), Cerebral artery occlusion with cerebral infarction ([facility]), CHF (congestive heart failure) ([facility]), Diabetes mellitus ([facility]), Hemodialysis patient ([facility]) ([facility]), blood clots, or MDRO (multiple drug [...] Name: Mel Pop Patient : 1940 Acct: [id number] Date of Admission: 07/05/2024 Room/Bed: 60/60 PCP: [...] Historical Provider, ergocalciferol (Vitamin D2) 1.25 MG (59295 UT) capsule Take 1.25 mg by mouth [...] 5 MG tablet Take as directed by [facility] Anticoagulation Clinic (90 tablets = 90 [...] % infusion, 50 mL/hr, IntraVENous, Continuous, Wm Aracelirakola, DO sodium chloride 0.9% (NS) flush 5-40 mL, 5-40 mL, IntraVENous, q12h, Wm Aracelirakola, DO sodium chloride 0.9% (NS) flush 5-40 mL, 5-40 mL, IntraVENous, PRN, Wm Aracelirakola, DO Current Outpatient Medications: albuterol 108 (90 [...] , Rfl: ergocalciferol (Vitamin D2) 1.25 MG (52397 UT) capsule, Take 1.25 mg by mouth [...] 5 MG tablet, Take as directed by [facility] Anticoagulation Clinic (90 tablets = 90 [...] 4:46 AM EST. Report Dictated on Workstation: [id number] Electronically Signed By: Cirilo Ray DR Electronically [...] this patient's care. documented in this encounter [facility] 07-05-2024 Consult note Formatting of th is [...] drops are started. Will continue to follow. [facility] 07-05-[address] Carlson at bedside. [facility] 07-05-[address] Carlson at [...] Maritza FRAGA Emergency Department Encounter Location: [facility] EMERGENCY DEPT Patient: Mel Pop : 1940 [...] 423 ms QTC Interval 418 ms P [place] 0 degrees QRS [place] 37 degrees T Wave [place] 29 degrees W[place] Interval 0 ms Troponin, High Sensitivity, Serial, [...] IV. I discussed with Dr. Peres from [facility] hospitalist service who accepted the admit. Medications sodium chloride 0.9% (NS) flush 5-40 mL ( IntraVENous Not Given 07/05/24 9590) sodium chloride 0.9% (NS) flush 5-40 mL (has no administration in time range) sodium chloride 0.9 % infusion (has no administration in time range) sodium chloride 0.9 % infusion (50 mL/hr IntraVENous Rate/Dose Verify 07/05/24 3911) labetalol (Normodyne,Trandate) injection 10 mg (has no [...] Given 07/05/24 0517) I am not the printing services coordinator of record. Dr. Nunes is the printing services coordinator of record. Final Impression 1. Vision loss of right eye 2. Acute intractable headache, unspecified headache type DISPOSITION Observation 07/05/2024 01:21:52 PM (Please note that portions of this note may have been completed with a voice recognition program. Efforts were made to edit the dictations but occasionally words are mis-transcribed.) Jhonatan Hernandez MD [facility] Jhonatan Hernandez MD 07/05/24 1322 documented in this encounter [facility] 07-05-2024 Note Formatting of this n ote [...] - DO NOT do CPR, intubation] [_] [DNR-INSULATION PACKER - Comfort care only] [_] DNR form [...] with patient and/or family/surrogate. Silvio Peres MD [facility] [employer] 07/05/2024, 1:18 PM [facility] 07-05-2024 Note Formatting of this n ote is different from the original. [employer]ING Mel F Jose Alberto : 1940 Primary Care Physician: Jared Evans MD The patient and/or family/surrogate voluntarily agreed to participate in ACP services. Patient s cognitive capacity: intact Code Status: [ ] [FULL CODE - Continue all advanced life support: CPR,intubation,invasive procedures] [ X ] [DNR-CCA - DO NOT do CPR, intubation] [_] [DNR-INSULATION PACKER - Comfort care only] [_] DNR form [...] with patient and/or family/surrogate. 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 History Obtained From: patient and patient's [id number] HISTORY OF PRESENT ILLNESS: Mel is a [...] COPD (chronic obstructive pulmonary disease) ([facility]) DVT (deep venous thrombosis) ([facility]) Essential hypertension 03/07/2020 GERD (gastroesophageal reflux disease) Hiatal hernia IBS (irritable bowel syndrome) Pure hypercholesterolemia 03/07/2020 PVD (peripheral vascular disease) ([facility]) Stroke ([facility]) Past Surgical History: Past Surgical History: [...] Resource Strain: Low Risk (06/20/2024) Received from [facility] Overall Financial Resource Strain (CARDIA) Difficulty of Paying Living Expenses: Not very hard Food Insecurity: No Food Insecurity (06/20/2024) Received from [facility] Hunger Vital Sign Worried About Running Out of Food in the Last Year: Never true Ran Out of Food in the Last Year: Never true Transportation Needs: No Transportation Needs (07/02/2024) Received from [facility] SDOH Transportation Source Has lack of transportation kept you from medical appointments or from getting medications?: No Has lack of transportation kept you from meetings, work, or from getting things needed for daily living?: No Physical Activity: Inactive (04/04/2024) Exercise Vital Sign Days of Exercise per Week: 0 days Minutes of Exercise per Session: 0 min Stress: No Stress Concern Present (06/19/2024) Received from [facility] Occup[facility] - Occupational Stress Questionnaire Feeling of Stress : Not at all Social Connections: Moderately Isolated (06/20/2024) Received from [facility] Social Connection and Isolation Panel [NHANES] Frequency of Communication with Friends and Family: More than three times a week Frequency of Social Gatherings with Friends and Family: Once a week Attends Mu-Ism Services: More than 4 times per year Active Member of Clubs or Organizations: No Attends Club or Organization Meetings: Never Marital Status: Intimate Partner Violence: Not At Risk (06/19/2024) Received from [facility] Domestic Abuse Assessment Do you feel safe in your relationships at home?: Yes Physical Abuse: Denies [facility] Domestic Abuse - Type of Abuse: Not on file [facility] Abuse - Time Frame: Not on file [facility] Domestic Abuse - Signs and Symptoms: Not on file Verbal Abuse: Denies [facility] Domestic Abuse - Reported To: Not on file Housing Stability: Low Risk (06/20/2024) Received from [facility] Housing Stability Vital Sign Unable [...] the evening. ergocalciferol (Vitamin D2) 1.25 MG (26339 UT) capsule Take 1.25 mg by mouth [...] 5 MG tablet Take as directed by [facility] Anticoagulation Clinic (90 tablets = 90 [...] 07/05/2024 Patient Name: MEL POP : 1940 [facility]#: [id number] Exam Date/Time: 07/05/2024 11:45 Procedure: MR BRAIN [...] 07/05/2024 Patient Name: MEL POP : 1940 [facility]#: [id number] Exam Date/Time: 07/05/2024 04:36 Procedure: CT HEAD [...] 07/05/2024 Patient Name: MEL POP : 1940 [facility]#: [id number] Exam Date/Time: 07/05/2024 04:36 Procedure: CT HEAD [...] 1940 Exam Date/Time: 07/05/2024 04:36 Procedure: CT PERFUSION [...] glucose meter Result Date: 07/05/2024 Performed by: [facility], [address] [place] [address] CLIA ID: [id number] Assessment / Plan Discussed management with the [...] Hospitalist Medicine [employer] Dictated using [employer] Speaking Medical Version 2.4 Proof read however unrecognized voice recognition errors may have occurred [employer] Work Phone: 07-05-2024 Note [employer] [facility] 07-05-2024 History and physical note Attending History and Physical Admit Date: 07/05/2024 PCP: Jared Evans MD CHIEF COMPLAINT: Loss of vision right eye, headache/eye pain, nausea, eye swelling Reason for Admission: 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 History Obtained From: patient and patient's [id number] HISTORY OF PRESENT ILLNESS: Mel is a [...] Resource Strain: Low Risk (06/20/2024) Received from [facility] Overall Financial Resource Strain (CARDIA) Difficulty of Paying Living Expenses: Not very hard Food Insecurity: No Food Insecurity (06/20/2024) Received from [facility] Hunger Vital Sign Worried About Running Out of Food in the Last Year: Never true Ran Out of Food in the Last Year: Never true Transportation Needs: No Transportation Needs (07/02/2024) Received from [facility] Transportation Source Has lack of transportation kept you from medical appointments or from getting medications?: No Has lack of transportation kept you from meetings, work, or from getting things needed for daily living?: No Physical Activity: Inactive (04/04/2024) Exercise Vital Sign Days of Exercise per Week: 0 days Minutes of Exercise per Session: 0 min Stress: No Stress Concern Present (06/19/2024) Received from [facility]ational Health - Occupational Stress Questionnaire Feeling of Stress : Not at all Social Connections: Moderately Isolated (06/20/2024) Received from [facility] Social Connection and Isolation Panel [NHANES] Frequency of Communication with Friends and Family: More than three times a week Frequency of Social Gatherings with Friends and Family: Once a week Attends Mu-Ism Services: More than 4 times per year Active Member of Clubs or Organizations: No Attends Club or Organization Meetings: Never Marital Status: Intimate Partner Violence: Not At Risk (06/19/2024) Received from [facility] Domestic Abuse Assessment Do you feel safe in your relationships at home?: Yes Physical Abuse: Denies [facility] Domestic Abuse - Type of Abuse: Not on file [facility] Domestic Abuse - Time Frame: Not on file [facility] Domestic Abuse - Signs and Symptoms: Not on file Verbal Abuse: Denies [facility] Domestic Abuse - Reported To: Not on file Housing Stability: Low Risk (06/20/2024) Received from [facility] Housing Stability Vital Sign Unable [...] the evening. ergocalciferol (Vitamin D2) 1.25 MG (32375 UT) capsule Take 1.25 mg by mouth [...] 5 MG tablet Take as directed by [facility] Anticoagulation Clinic (90 tablets = 90 [...] 07/05/2024 Patient Name: MEL POP : 1940 [facility]#: [id number] Exam Date/Time: 07/05/2024 11:45 Procedure: MR BRAIN [...] 07/05/2024 Patient Name: MEL POP : 1940 [facility]#: [id number] Exam Date/Time: 07/05/2024 04:36 Procedure: CT HEAD [...] 07/05/2024 [facility] 1940 [id number] Exam Date/Time: 07/05/2024 04:36 Procedure: CT HEAD [...] 07/05/2024 Patient Name: MEL POP : 1940 [facility]#: [id number] Exam Date/Time: 07/05/2024 04:36 Procedure: CT PERFUSION [...] glucose meter Result Date: 07/05/2024 Performed by: [facility], [address] [place] [address] CLIA ID: [id number] Assessment / Plan Discussed management with the [...] MD Division of Hospitalist Medicine Acute care [facility] Dictated using [employer] Speaking Medical Version 2.4 Proof read however unrecognized voice recognition errors may have occurred documented in this encounter [facility] 07-05-2024 Emergency department Note Provider notified of patient request for pain meds. [facility] 07-05-2024 Consult note Associated Order (s): IP [...] drops to be discontinued after 4 days. [facility] 07-05-2024 Consult note Associated Order (s): Inpatient consult to Endovascular Neurology--[facility] Inpatient consult to Endovascular Neurology--[facility] Consult performed by: Helga Naik APRN - BUSINESS EMPLOYMENT SPECIALIST Consult ordered by: Wm Nunes DO Reason [...] COPD (chronic obstructive pulmonary disease) ([facility]), DVT (deep venous thrombosis) ([facility]), Essential hypertension (03/07/2020), GERD (gastroesophageal reflux disease), Hiatal hernia, IBS (irritable bowel syndrome), Pure hypercholesterolemia (03/07/2020), PVD (peripheral vascular disease) ([facility]), and Stroke ([facility]). She has no past medical history of Cancer ([facility]) ([facility]), Cerebral artery occlusion with cerebral infarction ([facility]), CHF (congestive heart failure) ([facility]), Diabetes mellitus ([facility]), Hemodialysis patient ([facility]) ([facility]), blood clots, or MDRO (multiple drug [...] ., . Personal review of: Imaging,Labs,Old Records},.},. [facility] [employer] Work Phone: 07-05-[address] Carlson at bedside [facility] 07-05-2024 Emergency department Note Patient is returning back to room 32 at this time with Jose, Medic. [facility] 07-05-2024 Emergency department Note Pt currently at eye clinic with RADHA Hinkle for emergent eye laser procedure. [facility] 07-05-2024 Note Pt currently at eye clinic with RADHA Hinkle for emergent eye laser procedure. [facility] 07-05-2024 Emergency department Note Pt emergently going to eye clinic. Pt being transported in wheelchair with trauma float RADHA Hinkle and Maritza FRAGA Pt being transported on zoll monitor and acls kit. [facility] 07-05-2024 Emergency department Note Ophthalmology at bedside [facility] 07-05-2024 Emergency department Note Report to Maritza FRAGA [facility] 07-05-2024 Consult note Associated Order (s): IP CONSULT TO STROKE TEAM STROKE TEAM NOTE Patient Name: Mel Pop Patient : 1940 Acct: [id number] Date of Admission: 07/05/2024 Room/Bed: 60/60 PCP: [...] COPD (chronic obstructive pulmonary disease) ([facility]) DVT (deep venous thrombosis) ([facility]) Essential hypertension 03/07/2020 GERD (gastroesophageal reflux disease) Hiatal hernia IBS (irritable bowel syndrome) Pure hypercholesterolemia 03/07/2020 PVD (peripheral vascular disease) ([facility]) Stroke ([facility]) Past Surgical History: Past Surgical History: [...] Historical Provider, ergocalciferol (Vitamin D2) 1.25 MG (38167 UT) capsule Take 1.25 mg by mouth [...] MD Flores Ellipta 100-62.5-25 MCG/ACT aerosol powder 11/2/23 Historical Provider, warfarin (Coumadin) 5 MG tablet Take as directed by [facility] Anticoagulation Clinic (90 tablets = 90 [...] , Rfl: ergocalciferol (Vitamin D2) 1.25 MG (70650 UT) capsule, Take 1.25 mg by mouth [...] 5 MG tablet, Take as directed by [facility] Anticoagulation Clinic (90 tablets = 90 [...] motor function: 0=Normal Total: 2 Pre-admission Modified Hudson Score: 1 __ 0 No symptoms at [...] 4:46 AM EST. Report Dictated on Workstation: [employer] Electronically Signed By: Cirilo Ray DR Electronically [...] to be involved in this patient's care. [employer] Phone: 07-05-2024 Physician Emergency department Note Emergency Department Encounter Location: [facility] EMERGENCY DEPT Patient: Mel Pop : 1940 Date of evaluation: 07/05/2024 ED Provider: Jhontaan Hernandez MD Time received sign-out: 0700 Mel [...] 423 ms QTC Interval 418 ms P [place] 0 degrees QRS [place] 37 degrees T Wave [place] 29 degrees [place] Interval 0 ms Troponin, High Sensitivity, Serial, [...] IV. I discussed with Dr. Peres from [facility] hospitalist service who accepted [...] Given 07/05/24 0517) I am not the printing services coordinator of record. Dr. Nunes is the printing services coordinator of record. Final Impression 1. Vision loss of right eye 2. Acute intractable headache, unspecified headache type DISPOSITION Observation 07/05/2024 01:21:52 PM (Please note that portions of this note may have been completed with a voice recognition program. Efforts were made to edit the dictations but occasionally words are mis-transcribed.) Jhonatan Hernandez MD [employer] Jhonatan Hernandez MD 07/05/24 1322 [facility] 06-19-2024 Note HNO ID: [id number] Author: JOSE GONZALEZ [facility] Service: Pharmacy Author Type: Pharmacist Type: Plan [...] with neuroendovascular for ICA aneurysm Jose Gonzalez [facility] Pager: Nora/Hailey cervantes 06/19/2024 1:31 PM Medication [...] ELLIPTA 100-62.5-25 mcg inhalation powder Generic drug: yzsxcoclsjq-[id number]-[id number] VITAMIN C 500 mg tablet Generic drug: [...] as: COUMADIN zinc oxide 20 % ointment [facility] 06-19-2024 Note HNO ID: [id number] Author: ROSLYN ROSE RN Service: Care Management Author Type: Registered Nurse Type: Care Mgt Progress Note Filed: 06/19/2024 13:11 Note Text: CARE MANAGEMENT DISCHARGE NOTE SERVICE DATE: June 19, 2024 SERVICE TIME: 1:10 PM Admission Date: 06/10/2024 LOS: 8 days Discharge Arrangement Discharge Arrangement: Acute Rehabilitation Facility Services Arranged Provider Name: Taylor Muir Caregiver Assessment Caregiver is ready, willing and able to meet the patient's needs as recommended by the inter-professional team: Yes Name of Caregiver: Taylor Muir Transportation Arrangements Transportation Arrangements: Ambulance Transportation Agency and Phone #:: [facility] ( [facility] ) [phone] / [phone] Date of Trip: 06/19/24 Time of Trip: 1800 Type of Service: BLS Non-emergency Music Autographer Location: [facility] Destination: [facility] Financial Care Management Responsibility: None Handoff Communication: Handoff to: Specialty Distillery Manager Specialty Distillery Manager [facility]Phone[facility] Additional Information: Patient has insurance precert and is discharging to [facility] today via [facility] cot at 6:00 PM. Spoke with patient at bedside and son José Miguel via phone who are aware and agreeable. Transfer envelope with chart. Care team aware via Epic chat. Discharge Information Row Name ED to Hosp-Admission (Current) from 06/10/2024 in [place] [address] NEURO/CARD Rehab Facility Agency [facility] SIGNATURE: Roslyn Rose RN PATIENT NAME: Mel Castillo DATE: June 19, 2024 TIME: 1:10 PM CONTACT #: [phone] [facility] 06-19-2024 Note HNO ID: [id number] Author: DON EDWARDS DO Service: Hospital Medicine Author Type: Physician Type: Progress Notes Filed: 06/19/2024 12:53 Note Text: DEPARTMENT OF HOSPITAL MEDICINE PROGRESS NOTE SERVICE DATE: 06/19/2024 SERVICE TIME: 10:10 AM Hospital Medicine/Primary Attending: Don Edwards DO NIGHT AND WEEKEND COVERAGE: [place] COVERAGE: From 7am - 7pm, please call [phone] After 7pm, please call cross cover pager #[phone] Subjective INTERVAL HPI: Pt seen and examined. [...] 22 Gauge -- days Peripheral 06/12/24 0427 [facility] Short Right Forearm 20 Gauge 7 [...] now event with subtherapeutic coumadin. [place] at [place]. Will need to follow up with neurology [...] -- 06/11/24 0730 vte current anticoag therapy (il,ri) 06/11/24 0730 activity - mobilize patient (il,ri) VTE Prophylaxis: VTE prophylaxis appropriate Disposition: Acute Rehab Plan of care discussed with: Provider, RN, Patient SIGNATURE: Don Edwards DO PATIENT NAME: Mel Castillo DATE: June 19, 2024 TIME: 10:[id number] [facility] 06-18-2024 Note HNO ID: [id number] Author: ANABEL VEGA ? Service: Care Management Author Type: ? Type: Care Mgt Progress Note Filed: 06/18/2024 17:18 Note Text: [facility] PRECERT NOTE [employer] MEDICARE PPO approved Inpatient Rehab Facility for [facility] Taylor Patiño. Precert approved for dates: - 06/26/2024. For any additional questions regarding approvals, transport or care management needs, please contact the CM assigned to this patient in the Treatment Team. SIGNATURE: Anabel Vega DATE: June 18, 2024 TIME: 5:[address] [facility] 06-18-2024 Note HNO ID: [id number] Author: MARK MINOR DO Service: Hospital Medicine Author Type: Physician Type: Progress Notes Filed: 06/18/2024 16:17 Note Text: DEPARTMENT OF HOSPITAL MEDICINE PROGRESS NOTE SERVICE DATE: 06/18/2024 SERVICE TIME: 4:06 PM Hospital Medicine/Primary Attending: Mark Minor DO NIGHT AND WEEKEND COVERAGE: After 7pm please page [phone] SUBJECTIVE: Patient seen examined at bedside. No [...] now event with subtherapeutic coumadin. [place]. Will need to follow up with neurology [...] Yes) Chronic atrial (more content not included)... [facility] 06-18-2024 Note HNO ID: [id number] Author: ROSLYN ROSE RN Service: Care Management Author Type: Registered Nurse Type: Care Mgt Progress Note Filed: 06/18/2024 12:32 Note Text: CARE MANAGEMENT PROGRESS NOTE SERVICE DATE: 06/18/2024 SERVICE TIME: 9:01 AM LOS: 7 days Chart reviewed. Insurance precert is pending for [facility]. Will need precert and cot transport. CM to follow for transitional care planning. ADDENDUM at 10:20 AM- Spoke with patient at bedside and provided update on pending precert. Received message from [facility] that insurance is requesting updated PT/OT evals and notified therapy. SIGNATURE: oRslyn Rose RN PATIENT NAME: Mel Castillo DATE: June 18, 2024 TIME: 9:01 AM PAGER/CONTACT #: [phone] [facility] 06-17-2024 Note HNO ID: [id number] Author: DON EDWARDS DO Service: Hospital Medicine Author Type: Physician Type: Progress Notes Filed: 06/17/2024 13:52 Note Text: DEPARTMENT OF HOSPITAL MEDICINE PROGRESS NOTE SERVICE DATE: 06/17/2024 SERVICE TIME: 11:15 AM Hospital Medicine/Primary Attending: Don Edwards DO NIGHT AND WEEKEND COVERAGE: [place] COVERAGE: From 7am - 7pm, please call [phone] After 7pm, please call cross cover pager #[phone] Subjective INTERVAL HPI: Pt seen and examined. [...] 22 Gauge -- days Peripheral 06/12/24 0427 [facility] Short Right Forearm 20 Gauge 5 [...] eliquis. She was seen by therapy and retirement facility was recommended. 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 [place] Will need to follow up with neurology [...] -- 06/11/24 0730 vte current anticoag therapy ([place]) 06/11/24 0730 activity - mobilize patient ([place]) VTE Prophylaxis: VTE prophylaxis appropriate Disposition: Acute Rehab Plan of care discussed with: Provider, RN, Patient SIGNATURE: Don Edwards DO PATIENT NAME: Mel Castillo DATE: June 17, 2024 TIME: 11:[id number] [facility] 06-16-2024 Note HNO ID: [id number] Author: DON EDWARDS DO Service: Hospital Medicine Author Type: Physician Type: Progress Notes Filed: 06/16/2024 13:06 Note Text: DEPARTMENT OF HOSPITAL MEDICINE PROGRESS NOTE SERVICE DATE: 06/16/2024 SERVICE TIME: 11:00 AM Hospital Medicine/Primary Attending: Don Edwards DO NIGHT AND WEEKEND COVERAGE: [place] COVERAGE: From 7am - 7pm, please call [phone] After 7pm, please call cross cover pager #[phone] Subjective INTERVAL HPI: Pt seen and examined. [...] 22 Gauge -- days Peripheral 06/12/24 0427 [facility] Short Right Forearm 20 Gauge 4 days Drain Duration Indwelling Urinary Catheter 06/11/24 1535 [facility] Ceballos 16 Fr 4 days Reviewed lines and needs to be continued: REASONS: Difficulty in obtaining/maintaining access DATA: Diagnostic tests reviewed for today's visit: Most recent labs and imaging results. 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 [place] Will need to follow up with neurology [...] -- 06/11/24 0730 vte current anticoag therapy ([place]) 06/11/24 0730 activity - mobilize patient ([place]) VTE Prophylaxis: VTE prophylaxis appropriate Disposition: Acute Rehab Plan of care discussed with: Provider, RN, Patient SIGNATURE: Don Edwards DO PATIENT NAME: Mel Castillo DATE: June 16, 2024 TIME: 11:[id number] [facility] 06-15-2024 Note HNO ID: [id number] Author: ERA TELLES MD Service: Hospital Medicine [...] on oxygen Plan for acute rehab at [place] [facility] able to accept. Await precert Plan of care discussed with: Provider, RN, Patient. SIGNATURE: Era Telles MD PATIENT NAME: Mel Castillo DATE: June 15, 2024 TIME: 2:40 PM PAGER: [facility] 06-15-2024 Note HNO ID: [id number] Author: ISHAN October,.BUSINESS EMPLOYMENT SPECIALIST Service: Urology Author Type: Nurse Practitioner Type: Plan of Care Filed: 06/15/2024 12:16 Note Text: Urology Plan of Care Note RN reached out asking about a void trial today. Notes pt has bloody urine. Pt seen at bedside. Pt eating lunch. Vanessa urine in tubing at this time. Will place PRN irrigation orders if urine is bloody again. Page urology resident highway traffic control technician if urine is grade 4 or higher. Plan was to void trial prior to DC. Pt currently states she is unsure when she is going to rehab. CM note from this morning states waiting precert to taylor rosariow. Since it is already after 12pm,, will maintain ceballos catheter. Can void trial tomorrow morning if plan is to DC 06/16. Page urology resident at 7am on day of DC for void trial orders. - D/W team. RN sent a secure chat message as she was in with another patient when I was on the unit. Ariana MercerOctN 06/15/2024 12:[address] technician resident with questions [facility] 06-15-2024 Note HNO ID: [id number] Author: ROSLYN ROSE RN Service: Care Management [...] 15, 2024 TIME: 9:36 AM PAGER/CONTACT #: [phone] [facility] 06-14-2024 Note HNO ID: [id number] Author: JENNIFER FERNANDEZ, RADHA Service: Nursing Author Type: Registered Nurse Type: Nursing Progress Note Filed: 06/14/2024 17:35 Note Text: 1610: paged urology for voiding trial awaiting response [facility] 06-14-2024 Note HNO ID: [id number] Author: ERA TELLES MD Service: Hospital Medicine [...] on oxygen Plan for acute rehab at [place] [facility] able to accept. Await precert Plan of care discussed with: Provider, RN, Patient. SIGNATURE: Era eTlles MD PATIENT NAME: Mel Castillo DATE: June 14, 2024 TIME: 2:47 PM PAGER: [facility] 06-13-2024 Note HNO ID: [id number] Author: EDIE CASTAÑEDA MD Service: Hospital Medicine Author Type: Physician Type: Progress Notes Filed: 06/13/2024 14:18 Note Text: DEPARTMENT OF HOSPITAL MEDICINE Hospital Medicine/Primary Attending: Edie Castañeda MD NIGHT AND WEEKEND COVERAGE: After 7pm please page [phone] MEDICATIONS: Current Facility-Administered Medications Medication Dose Route [...] 01306/12/24 1903 06/12/24 1156 06/12/24 0450 06/12/24 03506/11/24202106/11/24 1353 06/10/24 233 APTT 51.3* 89.0* 56.1* 79.0* 123.9* 117.3* 28.2 28.9 -- INR -- -- -- -- -- -- -- 1.2 1.3 BMP: Recent Labs 06/13/2413606/12/24 03506/10/24 233 GLUC 95 109* 157* NA 136 137 136 K 3.8 4.0 4.3 CHLOR 101 101 101 CO2 23 23 ANION 11 13 12 BUN 16 12 14 CREAT 1.04* 1.02* 0.87 CHEM: Recent Labs 06/13/2413606/12/24 03506/10/242329 ALB -- 3.6* 4.2 TPROT -- 6.4 7.1 CA 8.9 9.2 9.5 MG -- 2.3 -- HEPATIC: Recent Labs 06/12/24 03506/10/24 233 ALKPHOS 88 99 ALT 6* 8 [...] interatrial septum. [facility]iology saw patient in hospital, recommended Lovenox at discharge for lifelong. 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 Continue heparin drip. Will transition to therapeutic lovenox tonight (discussed patel and affordability with patient, lin (more content not included)... [facility] 06-13-2024 Note HNO ID: [id number] Author: CARLYLE GUZMÁN RN Service: Care Management [...] and CHERYL Stokes about accepting facilities. [facility]ariow is FOC. Precert started for Taylor Patiño. Cot transport is on standby. Will to continue to follow for transitional care planning. SIGNATURE: Carlyle Guzmán RN PATIENT NAME: Mel Castillo DATE: June 13, 2024 TIME: 12:54 PM PAGER/CONTACT #: [phone] [facility] 06-12-2024 Note HNO ID: [id number] Author: SHARONA MCDERMOTT MD Service: Hospital Medicine Author Type: Physician Type: Progress Notes Filed: 06/12/2024 17:08 Note Text: DEPARTMENT OF HOSPITAL MEDICINE Hospital Medicine/Primary Attending: Sharona Mcdermott MD NIGHT AND WEEKEND COVERAGE: After 7pm please page [phone] Saw patient at bedside with friend visiting. [...] visit: Lab data: CBC: Recent Labs 06/12/24 03506/11/24 13506/10/242329 WBC 5.17 7.45 5.67 HB 10.6* 11.5 11.4* HCT 34.6* 37.6 37.5 PLT 314 329 330 MCV 85.6 87.0 86.2 RDWCV 15.6* 15.6* 15.6* NEUTP 57.4 72.9 84.2 ABSNEUT 2.97 5.43 4.78 LYMPHP 31.9 16.9 10.8 MONOP 8.9 9.1 3.7 EODINP 1.0 0.3 0.2 COAG: Recent Labs 06/12/24 1156 06/12/24 0450 06/12/2435006/11/24202106/11/24 13506/10/242329 APTT 79.0* 123.9* 117.3* 28.2 28.9 -- INR -- -- -- -- 1.2 1.3 BMP: Recent Labs 06/12/2435006/10/242329 GLUC 109* 157* NA 137 136 K 4.0 4.3 CHLOR 101 101 CO2 23 23 ANION 13 12 BUN 12 14 CREAT 1.02* 0.87 CHEM: Recent Labs 06/12/2435006/10/242329 ALB 3.6* 4.2 TPROT 6.4 7.1 CA 9.2 9.5 MG 2.3 -- HEPATIC: Recent Labs 06/12/24 03506/10/242329 ALKPHOS 88 99 ALT 6* 8 AST [...] interatrial septum. [facility] Cardiology saw patient in hospital, recommended Lovenox [...] COPD Smoker Not (more content not included)... [facility] 06-12-2024 Note HNO ID: [id number] Author: DEBORAH PEACE RN Service: Care Management Author Type: Registered Nurse Type: Care Mgt Progress Note Filed: 06/12/2024 16:10 Note Text: CARE MANAGEMENT PROGRESS NOTE SERVICE DATE: 06/12/2024 SERVICE TIME: 4:09 PM LOS: 1 day [place] Given: Yes Level of Care Discussed: Inpatient Rehab Facility Financial Disclosure Provided: Yes Provider List: Rehab Facility Provider list within the patient's requested geographic area shared with the patient/family: Yes within: 15 miles of zip code: [address] Quality and resource use metrics shared with the patient that are relevant to the patient's goals of care and treatment preferences:: Yes Spoke with pt about pt/ot recs for acute rehab, pt agreeable to list , Taylor Patiño would be foc but pt would like to discuss acute rehab with her ; referral sent to [facility] SIGNATURE: Deborah Peace RN PATIENT NAME: Mel Castillo DATE: June 12, 2024 TIME: 4:09 PM PAGER/CONTACT #: [phone] [facility] 06-12-2024 Note HNO ID: [id number] Author: ANDREEA KING LSW Service: Care Management Author Type: Prosthetic Dentist Type: Care Mgt Progress Note Filed: 06/12/2024 [...] provided pt with stroke handout. SIGNATURE: SHAQUILLE Kaey PATIENT NAME: Mel Castillo DATE: June 12, 2024 TIME: 3:20 PM PAGER/CONTACT #: [phone] 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 +PCP, +DME, +RX coverage, family to provide DC transportation. Will to continue to follow for transitional care planning. SIGNATURE: Carlyle Guzmán RN PATIENT NAME: Mel Castillo DATE: June 11, 2024 TIME: 3:41 PM CONTACT #: [phone] [facility] 06-11-2024 Note Spoke with Melany Evans's office and she stated that patient is scheduled in their office tomorrow, 06/12 for INR check. I faxed her out last progress note. I will inactivate patient from our service. [facility] 05-21-2024 History of Present illness Narrative INR reported on by Christin with [facility]. Christin can be reached at [phone] with questions. Images from the original note were not included. [facility] Anticoagulation Management Service ([facility]) Anticoagulation Clinic [address] [place] [address], [address], [place] [address] Megan Choi (1940) had INR completed by [...] PharmD, BCACP, CACP documented in this encounter [facility] 05-09-2024 History of Present illness Narrative Graciela from [facility] called in results. Images from the original note were not included. [facility] Anticoagulation Management Service ([facility] Anticoagulation Clinic [address] [place] [address], [address], [place] [id number] Subjective HPI Mel (1940) had INR completed [...] positive findings Mel was instructed to notify [facility] of any unusual bruising or active/uncontrollable bleeding, medication changes within 24 hours, missed doses, dietary changes, illnesses or hospitalizations, and upcoming surgeries. Patient given verbal instructions. Patient expressed understanding utilizing the teach back method. Time spent 10 Minutes JOSE ANGEL Perez, PharmD, BCPS documented in this encounter [facility] 05-01-2024 History of Present illness Narrative [facility]- [facility]- [phone] Images from the original note were not included. [facility] Anticoagulation Management Service ([facility] Anticoagulation Clinic [address] [place] [address], [address], [place] [address] Subjective TYSON Choi (1940) had INR completed [...] 5 mg daily Next INR Check: 05/08/2024 [facility] Patient educated on the following: dietary/lifestyle considerations and Vitamin K content and consistency Patient care coordination completed: N/A Patient given verbal instructions. Patient expressed understanding utilizing the teach back method. Time spent 10 Minutes Won Tipton RN staffed with Chalino Tolbert, BCACP, CACP documented in this encounter [facility] 04-27-2024 Telephone encounter Note Pt requested refill on warfarin 5mg. Sent to [facility]. Receipt confirmed by pharmacy. [facility] 04-27-2024 Miscellaneous Notes Pt requested refill on warfarin 5mg. Sent to [facility]. Receipt confirmed by pharmacy. documented in this encounter [facility] 04-25-2024 History of Present illness Narrative Vascular [...] any significant pain. She is following with [facility] clinic for Warfarin, switched from Eliquis. [...] 40 MG EC tablet 07/18/23 Historical Provider, Trejamey Ellipta 100-62.5-25 MCG/ACT aerosol powder 05/19/23 Historical Provider, warfarin (Coumadin) 5 MG tablet Take 1 tablet (5mg) on 04/13 in the evening Take 1.5 tablets (7.5mg) on 04/14 Take 1 tablet (5mg) on 04/15 Follow up with [facility] pharmacy for further dosing 04/13/24 Jordin [...] min Stress: No Stress Concern Present (04/04/2024) [place] [employer] [employer] - Occupational Stress Questionnaire Feeling of Stress : Not at all Social Connections: Moderately Isolated (04/04/2024) Social Connection and Isolation Panel [NHANES] Frequency of Communication with Friends and Family: More than three times a week Frequency of Social Gatherings with Friends and Family: More than three times a week Attends Mu-Ism Services: 1 to 4 times per year [...] thrombectomy -Recovering well -Recommend continuing warfarin per [facility] clinic -Continue to elevate as needed. [...] (around 07/26/2024). . documented in this encounter [facility] 04-19-2024 History of Present illness Narrative Graciela with [facility] reports INR on vm Graciela can be reached at [phone] with any questions. Images from the original note were not included. [facility] Anticoagulation Management Service ([facility]) Anticoagulation Clinic [address] [place] [address], [address] [place] [address] Subjective HPI Mel (1940) had INR completed [...] Perez, PharmD, BCPS documented in this encounter [facility] 04-14-2024 History of Present illness Narrative Placed new order for POCT INR, [facility] had not received. documented in this encounter [facility] 04-14-2024 Miscellaneous Notes Addended by: PATTY DUGGAN on: 04/16/2024 07:01 AM Modules accepted: Orders Addended by: HARMONY GREY on: 04/16/2024 08:41 AM Modules accepted: Orders documented in this encounter [facility] 04-14-2024 Note Addended by: PATTY DUGGAN on: 04/16/2024 07:01 AM Modules accepted: Orders [facility] 04-14-2024 Note Addended by: HARMONY GREY on: 04/16/2024 08:41 AM Modules accepted: Orders [facility] 04-14-2024 Note Addended by: PATTY DUGGAN on: 04/16/2024 07:01 AM Modules accepted: Orders [facility] 04-14-2024 Note Addended by: HARMONY GREY on: 04/16/2024 08:41 AM Modules accepted: Orders [facility] 04-14-2024 Note Addended by: PATTY DUGGAN on: 04/16/2024 07:01 AM Modules accepted: [facility] 04-14-2024 Note Addended by: HARMONY GREY on: 04/16/2024 08:41 AM Modules accepted: [facility] 04-13-2024 Nurse Note AVS explained. Discharged patient on stable condition. [facility] 04-13-2024 Nurse Note AVS explained. Discharged patient on stable condition. Instructed patient on warfarin dosing, she will take 7.5mg tomorrow, and 5mg Tuesday, and then we will check INR with home care on Tuesday as instructed. NO changes to heparin infusion at this time. documented in this encounter [facility] 04-13-2024 Nurse Note Instructed patient on warfarin dosing, she will take 7.5mg tomorrow, and 5mg Tuesday, and then we will check INR with home care on Tuesday as instructed. [facility] 04-13-2024 Note Formatting of this n ote might be different from the original. Phone conversation with the patient at their request from the [facility] regarding her established home care. Patient was wondering what services were being provided and what expectations to have for HHC. I explained her current ordered services and she stated she understood. Patient then asked if she could have meals delivered. I explained I would reach out to her social service technician here at the hospital for further guidance on resources when she gets home. Secure chat sent to KEESHA Basilio regarding this. [facility] 04-13-2024 Note Formatting of this n ote might be different from the original. Phone conversation with the patient at their request from the [facility] regarding her established home care. Patient was wondering what services were being provided and what expectations to have for HHC. I explained her current ordered services and she stated she understood. Patient then asked if she could have meals delivered. I explained I would reach out to her social service technician here at the hospital for further guidance on resources when she gets home. Secure chat sent to KEESHA Basilio regarding this. [facility] 04-13-2024 Miscellaneous Notes Phone conversation with the patient at their request from the [facility] regarding her established home care. Patient was wondering what services were being provided and what expectations to have for HHC. I explained her current ordered services and she stated she understood. Patient then asked if she could have meals delivered. I explained I would reach out to her social service technician here at the hospital for further guidance on resources when she gets home. Secure chat sent to KEESHA Basilio regarding this. Images from the original note were not included. Care Management Progress Note INR 2.3 today. Hep drip continued, plan to DC to [facility] today. Plan to have PT seen patient today per her request. Patient is active with [facility]. Await treatment plan and clinical progress. manager fiber will continue to follow for transitional care [...] lower [place], vasc consult" 04/06/2024 Bernie Cutler, RRT - BUSINESS EMPLOYMENT SPECIALIST 04/04/2024 4:04 AM 04/06/2024 Bernie Cutler APRN - BUSINESS EMPLOYMENT SPECIALIST 04/03/2024 11:17 PM Length of Stay (Days): [...] Await treatment plan and clinical progress. manager fiber will continue to follow for transitional care needs for discharge planning. Discharge Milestones and Delays Expected date/time: 04/13/2024 Expected discharge disposition: Home Health Services Discharge Milestones Place discharge order Complete med reconciliation Case mgmt discharge readiness Clinical Stability Diagnostic Workup Senior Control Systems Engineer Recommendations Facility Choice Selection Imaging Results PT [...] Await treatment plan and clinical progress. manager fiber will continue to follow for transitional care [...] Await treatment plan and clinical progress. manager fiber will continue to follow for transitional care needs for discharge planning. Discharge Milestones and Delays Expected date/time: 04/11/2024 Expected discharge disposition: Home or Self Care Discharge Milestones Place discharge order Complete med reconciliation Case mgmt discharge readiness Clinical Stability Diagnostic Workup Senior Control Systems Engineer Recommendations Facility Choice Selection Imaging Results Patient [...] Await treatment plan and clinical progress. manager fiber will continue to follow for transitional care needs for discharge planning. Discharge Milestones and Delays Expected date/time: 04/10/2024 Expected discharge disposition: Home or Self Care Discharge Milestones Place discharge order Complete med reconciliation Case mgmt discharge readiness Clinical Stability Diagnostic Workup Senior Control Systems Engineer Recommendations Facility Choice Selection Imaging Results Patient [...] vasc consult" 04/06/2024 Bernie Cutler APRN - BUSINESS EMPLOYMENT SPECIALIST 04/04/2024 4:04 AM 04/06/2024 Bernie Cutler APRN - BUSINESS EMPLOYMENT SPECIALIST 04/03/2024 11:17 PM Length of Stay (Days): [...] transitioning to coumadin. Pt active with [facility]- will continue services at discharge. Discharge Milestones [...] vasc consult" 04/06/2024 Bernie Cutler APRN - BUSINESS EMPLOYMENT SPECIALIST 04/04/2024 4:04 AM 04/06/2024 Bernie Cutler APRN - BUSINESS EMPLOYMENT SPECIALIST 04/03/2024 11:17 PM Length of Stay (Days): 3 GMLOS: 3.1 Patient report called to 4N RN and denies any further questions. Patient resting comfortably and no signs of distress. Per resident patient to lay flat for 2 hours and restart heparin GTT at 1215. Transport notified. SW assisted patient with completion of Health Care Power of Emotional Disabilities Teacher. One copy placed in patient chart, one copy sent to medical records and two copies given to patient. Requested by patient, while at bedside this SW spoke to patient's son via patients phone to explain that HCPOA was being completed by patient. Patients son Bacel Castillo ([phone]) agreed to be this patients agent on [...] technique was used to place a 5 Panamanian sheath. A Bentson wire was able to be advanced in the inferior vena cava without difficulty. The 5 Panamanian sheath was then upsized to a 16 Panamanian sheath and the penumbra flash suction thrombectomy device was prepared per jewelry inspector's instructions. The patient was also given 5000 units of heparin for systemic anticoagulation at this time. The Penumbra device was then inserted through the 16 Panamanian sheath and a suction thrombectomy was performed [...] device was removed as was the 16 Panamanian sheath and an 0 silk suture was [...] Blankenship MD Vascular Surgery Date: 04/06/2024 Location: [facility] OR Name: Mel Pop, : 1940, Diagnosis Pre-op Diagnosis * Right leg DVT (HCC) [I82.401] Post-op Diagnosis * Right leg DVT (HCC) [I82.401] Procedures RIGHT LOWER EXTREMITY VENOUS MECHANICAL THROMBECTOMY 84787 - [place] PRQ TRANSLUMINAL MECHANICAL THROMBECTOMY VEIN Surgeons * Kristyn Blankenship - Primary Procedure Summary Anesthesia: General ASA: III Estimated Blood Loss: 300 mL Drains: * None in log * Staff: Director Network Development: Negrita Elizabeth RN; Amira Burton RN Scrub Person: Linnette [...] from home alone- indep [facility]- will return. Discharge Milestones and Delays Expected [...] vasc consult" 04/06/2024 Bernie Cutler APRN - BUSINESS EMPLOYMENT SPECIALIST 04/04/2024 4:04 AM 04/06/2024 Bernie Cutler APRN - BUSINESS EMPLOYMENT SPECIALIST 04/03/2024 11:17 PM Length of Stay (Days): [...] Limits Permission given to speak with patient sales representative metals/caregiver as indicated: Confirmation of Payer with patient/family: [...] Services Provider Name: [facility] Dialysis Type: NA Durable Medical Equipment: Cane, [...] home alone and indep. Pt active with [facility]- liaison following for continued services. Pt uses walker/cane at baseline. Pt has insurance, PCP and able to obtain meds. Pt's friends help with transportation. No needs antic at discharge. Virginia Rehman RN Start PACC Note Home Health Referral Educated patient on Home Care and services available. Patient offered choice of available HHC and agreeable to SN/PT services with [facility]. Care Types: [...] is noted as yes - consider a ELECTRIC METER REPAIRER HELPER evaluation once the patient returns home. START PATIENT REGISTRATION INFORMATION Order Information Order Signing Physician: Robert Vigil MD Service Ordered RN ?: Yes Service Ordered PT ?: Yes Service Ordered OT ?: No Service Ordered ST ?: No Service Ordered ELECTRIC METER REPAIRER HELPER?:No Service Ordered AIRBRUSH ARTIST TECHNICAL?: No Following Physician: Jared Evans MD Following Physician Overseeing Physician: Jared Evans MD (Required for Residents only) Agreeable to Follow? Yes Date/Time of Call 04/04/24 11:36 AM, Spoke with: Patient is a DEB. Care Coordination Same Day SOC?: No Primary Care Physician: Jared Evans MD Primary Care Physician Primary Care Physician Address: [address] [place] [address] Visit Instructions: N/A Service Discharge Location Type: Home with Home Care Service Facility Name: N/A Service Floor Facility: N/A Service Room No: N/A Demographics Patient Last Name: Jose Alberto Patient First Name: Mel Language/Communication Barrier: none Service Address: [address] Service City: [facility] ST: [place] Service ZIP: [address] Service Other phone numbers: Telephone Information: Emergency [...] Caregiver Phone Number: na Caregiver Notes: N/A 3yy game platform List No END PATIENT REGISTRATION INFORMATION Pt [...] intervention. Discharge Date: pending Referral Source-PACC: (Hospital/Unit): [facility] / N4-461/N4-461 B End PACC Note The patient is Moderately Stable - Low risk of patient condition declining or worsening The patient's goals for the shift include safety The clinical goals for the shift include therapeutic aptt Patient is currently active with [facility] [employer]. The patients current certification period will on 05/18/24. The patient is currently receiving PT services through the agency. Interventional Cardiologist to continue to follow. ADVANCED CARE PLANNING Mel Pop : 1940 Primary Care Physician: Jared Evans MD The patient and/or family/surrogate voluntarily agreed to participate in ACP services. Patient s cognitive capacity: intact Code Status: [ ] [FULL CODE - Continue all advanced life support: CPR,intubation,invasive procedures] [X] [DNR-CCA - DO NOT do CPR, intubation] [_] [DNR-INSULATION PACKER - Comfort care only] [_] DNR form [...] patient and/or family/surrogate. Pratibha Avelar DO [facility] 04/04/2024, 5:40 AM The patient is Moderately Stable - Low risk of patient condition declining or worsening The patient's goals for the shift include met The clinical goals for the shift include met Over the shift, the patient did not make progress toward the following goals. Barriers to progression include . Recommendations to address these barriers include . documented in this encounter [facility] 04-13-2024 Note [facility] 04-13-2024 Hospital course Narrative Discharge Summary Mel Pop : 1940 ADMIT DATE: 04/03/2024 DISCHARGE DATE: 04/13/2024 PRIMARY CARE PHYSICIAN: Jared Evans VISIT STATUS: Admission CODE STATUS: DNR-CCA DISCHARGE DIAGNOSES: Principal Problem: Peripheral arterial disease (HCC) Bilateral lower extremity DVTs RLE thrombectomy HOSPITAL COURSE: 83-year-old woman with history of A-fib on Eliquis, tobacco use, hypertension, hyperlipidemia, asthma, hiatal hernia, GERD presented to [facility] on 04/03 with right leg pain, numbness, tingling causing difficulty ambulating. CTA of lower extremity showed severe atherosclerotic disease with bilateral superficial femoral artery occlusion and transferred to [facility]. She underwent venous thrombectomy with vascular surgery [...] Pharmacy RECOMMENDED NEXT STEPS: Follow up with [facility] clinic and vascular DISCHARGE MEDICATIONS: Medication List [...] tablet (5mg) on 04/15 Follow up with [facility] pharmacy for further dosing CONTINUE taking these medications albuterol 108 (90 Base) MCG/ACT inhaler ascorbic acid 500 MG tablet Commonly known as: Vitamin C lisinopril 5 MG tablet pantoprazole 40 MG EC tablet Commonly known as: ProtoNix Trelegy Ellipta 100-62.5-25 MCG/ACT aerosol powder Generic drug: Vnnhulkivsf-Ulgeiopto-Otucsg STOP taking these medications Eliquis 5 MG tablet Generic drug: apixaban Where to Get Your Medications These medications were sent to [facility] [address] [place] [address] Hours: Tuesday to Tuesday 10 am to 6 pm oxyCODONE 5 MG immediate release tablet warfarin 5 MG tablet DIET: Adult diet Regular ACTIVITY: No restriction. COMPLEXITY OF FOLLOW UP: [x] Moderate Complexity: follow up within 7-14 calendar days (75252) [] Severe Complexity: follow up within 7 calendar days (60276) FOLLOW UP TESTING, PENDING RESULTS OR REFERRALS AT TRANSITIONAL CARE VISIT: [] Yes [x] No PENDING STUDIES: none DISPOSITION: Home with Home Health Care FACILITY/HOME CARE AGENCY NAME: [facility] [address] Follow up with Kristyn Blankenship MD [address] [phone] Schedule an appointment as soon as possible for a visit [facility] clinic for INR check next week [...] 04/13/2024, 2:20 PM documented in this encounter [facility] 04-13-2024 History of Present illness Narrative Images from the original note were not included. PHYSICAL THERAPY [facility] Treatment Note Name/MRN: Mel Pop ([id number]) Date of : 1940 Age: 83 y.o. [...] 1045 Minutes 13 (Gait) Christin Gu PT [facility] Anticoagulation Management Service ([facility]) Inpatient Warfarin Consult HPI: Mel Pop is a 83 y.o. female admitted on 04/03/2024 for Peripheral arterial disease (HCC). Past Medical History: Diagnosis Date Asthma Essential hypertension 03/07/2020 GERD (gastroesophageal reflux disease) Hiatal hernia Pure hypercholesterolemia 03/07/2020 Patient is newly referred to the [facility] clinic for warfarin management. Pt was [...] and adjust dose accordingly. 3. Will facilitate [facility] follow-up upon discharge. Patient is agreeable to [facility] follow up. If discharged today, recommend sending home with 5mg tablets with instructions to take 5mg Tuesday (if not already received in hospital), 7.5mg Tuesday, 5mg Tuesday, and will recheck INR Tuesday via home care. 4. Provided warfarin education. Marybeth Rahman RPh, PharmD [facility] Consult Service is available daily [phone] via Stalkthis Secure Chat. If no response, please page [phone]. Hospitalist Progress Note 04/13/2024 Subjective: Admit Date: 04/03/2024 PCP: Jared Evans MD Room#: N4-461/N4-464 B BRIEF HOSPITAL COURSE: 83-year-old woman with history of A-fib on Eliquis, tobacco use, hypertension, hyperlipidemia, asthma, hiatal hernia, GERD presented to [facility] on 04/03 with right leg pain, numbness, tingling causing difficulty ambulating. CTA of lower extremity showed severe atherosclerotic disease with bilateral superficial femoral artery occlusion and transferred to [facility]. She underwent venous thrombectomy with vascular surgery [...] warfarin and close OP follow up with [facility]. Case and plan discussed with patient [...] Labs 04/11/24 0027 04/12/24 0519 04/13/24 0359 NA 134* 135 135 K 4.0 3.9 4.3 CL 108* 108* 108* CO2 BUN 16 16 18* CREATININE 1.01 0.99 1.00 GLUCOSE 112* 101* 98 CALCIUM 8.8 9.3 9.0 ANIONGAP 4 3 2* LIVER PROFILE:No results for input(s): "AST", "ALT", "BILITOT", "ALKPHOS", "PROT" in the last 72 hours. No lab exists for component: LABALBU PT/INR: Recent Labs 04/11/24 0027 04/12/2451804/13/24358 PROTIME 20.9* 20.3* 24.2* INR 1.9* 1.9* [...] person, place, and time. Medications: Scheduled PRN Htvxuxllhnd-Ztbjahglq-Tuybqt, 1 puff, Inhalation, Daily influenza, 0.5 mL, [...] Jordin Roldan MD Division of Hospitalist Medicine [facility] Hospitalist Progress Note 04/12/2024 Subjective: Admit Date: 04/03/2024 PCP: Jared Evans MD Room#: N4-461/N4-461 B BRIEF HOSPITAL COURSE: 83-year-old woman with history of A-fib on Eliquis, tobacco use, hypertension, hyperlipidemia, asthma, hiatal hernia, GERD presented to [facility] on 04/03 with right leg pain, numbness, tingling causing difficulty ambulating. CTA of lower extremity showed severe atherosclerotic disease with bilateral superficial femoral artery occlusion and transferred to [facility]. She underwent venous thrombectomy with vascular surgery [...] 238 244 307 BMP: Recent Labs 04/10/24 0604/11/242604/12/24 0519 NA 136 134* 135 K 3.8 4.0 3.9 CL 111* 108* 108* CO2 21* 22 24 BUN 15 16 16 CREATININE 1.00 1.01 0.99 GLUCOSE 101* 112* 101* CALCIUM 9.0 8.8 9.3 ANIONGAP 3 4 3 LIVER PROFILE:No results for input(s): "AST", "ALT", "BILITOT", "ALKPHOS", "PROT" in the last 72 hours. No lab exists for component: LABALBU PT/INR: Recent Labs 04/10/2460004/11/242604/12/24518 PROTIME 17.7* 20.9* 20.3* INR 1.6* 1.9* [...] person, place, and time. Medications: Scheduled PRN Xsdsghgllmo-Eskocgpxf-Boooyc, 1 puff, Inhalation, Daily influenza, 0.5 mL, [...] Jordin Roldan MD Division of Hospitalist Medicine [facility] Anticoagulation Management Service ([facility]) Inpatient Warfarin Consult HPI: Mel Pop is a 83 y.o. female admitted on 04/03/2024 for Peripheral arterial disease (HCC). Past Medical History: Diagnosis Date Asthma Essential hypertension 03/07/2020 GERD (gastroesophageal reflux disease) Hiatal hernia Pure hypercholesterolemia 03/07/2020 Patient is newly referred to the [facility] clinic for warfarin management. Pt was [...] PharmD [facility] Consult Service is available daily [phone] via urturn. If no response, please page [phone]. Images from the original note were not included. OCCUPATIONAL THERAPY [facility] Initial Evaluation Name/MRN: Mel Pop ([id number]) Evaluation Date: 04/11/2024 Date of : 1940 Admission Date: 04/03/2024 5:47 PM Age: 83 y.o. 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[facility]) 06/16/2022 Cellulitis 05/18/2022 Nicotine use disorder 05/18/2022 Irritable bowel syndrome with diarrhea 03/07/2020 Microscopic hematuria 03/07/2020 Left retinal detachment 03/07/2020 Hyperglycemia 03/07/2020 Osteopenia of left femoral neck 03/07/2020 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 03/07/2020 Seasonal allergies 03/07/2020 Chronic renal insufficiency, stage III (moderate) ([facility]) 03/07/2020 Major depression, single episode, in complete remission ([facility]) 03/07/2020 Gastroesophageal reflux disease without esophagitis 03/07/2020 Essential hypertension 03/07/2020 Pure hypercholesterolemia 03/07/2020 Overweight 03/07/2020 Psoriasis 03/07/2020 History of cerebrovascular accident 03/07/2020 Atrial fibrillation ([facility]) 03/07/2020 Chronic obstructive pulmonary disease ([facility]) 03/07/2020 Finger osteomyelitis, right ([facility]) 03/06/2020 Medical Precautions: No active isolations [...] Responsibilities: Independent Receives Help From: None Active Commercial Artist: Yes Prior Level of Function ADL Assistance: [...] of Care supervision is transferred to a [facility] Therapy Services Occupational Therapist. Goals and/or treatment plan was established in collaboration with patient/family/other representatives. Hospitalist Progress Note 04/11/2024 Subjective: Admit Date: 04/03/2024 PCP: Jared Evans MD Room#: N4-461/N4-461 B BRIEF HOSPITAL COURSE: 83-year-old woman with history of A-fib on Eliquis, tobacco use, hypertension, hyperlipidemia, asthma, hiatal hernia, GERD presented to [facility] on 04/03 with right leg pain, numbness, tingling causing difficulty ambulating. CTA of lower extremity showed severe atherosclerotic disease with bilateral superficial femoral artery occlusion and transferred to [facility]. She underwent venous thrombectomy with vascular surgery [...] person, place, and time. Medications: Scheduled PRN Hrmspxpkdot-Lrxbxtbiz-Tnwdtj, 1 puff, Inhalation, Daily influenza, 0.5 mL, [...] Jordin Roldan MD Division of Hospitalist Medicine [facility] Images from the original note were not included. PHYSICAL THERAPY [facility] Initial Evaluation Name/MRN: Mel Pop ([id number]) Evaluation Date: 04/11/2024 Date of : 1940 Admission Date: 04/03/2024 5:47 PM Age: 83 y.o. Room/Bed: [facility] [place] B Discharge Recommendation: Home with Home health [...] 03/07/2020 Osteopenia of left femoral neck 03/07/2020 [facility] current use of anticoagulant therapy 03/07/2020 Seasonal allergies 03/07/2020 Chronic renal insufficiency, stage III (moderate) ([facility]) 03/07/2020 Major depression, single episode, in complete remission ([facility]) 03/07/2020 Gastroesophageal reflux disease without esophagitis 03/07/2020 Essential hypertension 03/07/2020 Pure hypercholesterolemia 03/07/2020 Overweight 03/07/2020 Psoriasis 03/07/2020 History of cerebrovascular accident 03/07/2020 Atrial fibrillation ([facility]) 03/07/2020 Chronic obstructive pulmonary disease ([facility]) 03/07/2020 Finger osteomyelitis, right ([facility]) 03/06/2020 Medical Precautions: No active isolations [...] 0755 Time Out 0812 Minutes 17 Christin Gu, PT Patient's Physical Therapy Plan of Care supervision is transferred to a [facility] Therapy Services Physical Therapist. Goals and/or treatment plan was established in collaboration with patient/family/other representatives. [facility] Anticoagulation Management Service ([facility]) Inpatient Warfarin [...] follow up. 4. Provided warfarin education. Marybeth Rahman, TAWANA, PharmD [facility] Consult Service is available daily [phone] via Epic Secure Chat. If no response, please page [phone]. Hospitalist Progress Note 04/10/2024 Subjective: Admit Date: 04/03/2024 PCP: Jared Evans MD Room#: N4-461/N4-461 B BRIEF HOSPITAL COURSE: 83-year-old woman with history of A-fib on Eliquis, tobacco use, hypertension, hyperlipidemia, asthma, hiatal hernia, GERD presented to [facility] on 04/03 with right leg pain, numbness, tingling causing difficulty ambulating. CTA of lower extremity showed severe atherosclerotic disease with bilateral superficial femoral artery occlusion and transferred to [facility]. She underwent venous thrombectomy with vascular surgery [...] Jordin Roldan MD Division of Hospitalist Medicine [employer] Nutrition update completed. Chart reviewed. Patient to be monitored and followed by the diet optics test technician. FADI Farrar [facility] Anticoagulation Management Service ([facility]) Inpatient Warfarin Consult HPI: Mel Pop is a 83 y.o. female admitted on 04/03/2024 for Peripheral arterial disease (HCC). Past Medical History: Diagnosis Date Asthma Essential hypertension 03/07/2020 GERD (gastroesophageal reflux disease) Hiatal hernia Pure hypercholesterolemia 03/07/2020 Patient is newly referred to the [facility] clinic for warfarin management. Pt was [...] PharmD [facility] Consult Service is available daily [phone] via Stalkthis Secure Chat. If no response, please page [phone]. Hospitalist Progress Note 04/09/2024 Assessment/Plan: Data: (CAT1) [...] Date: 04/03/2024 PCP: Jared Evans MD Room#: N4-694/N4-518 B Brief Hospital course: Patient is an 83-year-old female with history of A-fib on Eliquis, significant tobacco use, HTN, HLD, asthma, hiatal hernia, GERD who presented to [facility] 9/17 with right leg pain, numbness, tingling causing difficulty ambulating. CTA of LE, showing severe LE atherosclerotic disease with bilateral superficial femoral artery occlusion, and was transferred to [facility] for admission. Interval History: Mild shortness of [...] Pure hypercholesterolemia 03/07/2020 LABS: CBC: Recent Labs 04/07/2425004/08/24 0020 04/09/24 0153 WBC 4.0 7.5 6.9 [...] Robert Vigil MD Division of Hospitalist Medicine [facility] Anticoagulation Management Service ([facility]) Inpatient Warfarin [...] PharmD [facility] Consult Service is available daily [phone] via Stalkthis Secure Chat. If no response, please page [phone]. Hospitalist Progress Note 04/08/2024 Assessment/Plan: Data: (CAT1) [...] asthma, hiatal hernia, GERD who presented to [facility] 04/03 with right leg pain, numbness, tingling causing difficulty ambulating. CTA of LE, showing severe LE atherosclerotic disease with bilateral superficial femoral artery occlusion, and was transferred to [facility] for admission. Interval History: Pain continues to [...] José Miguel Castillo/ Fidel Mobile Relation: Child Tristonjot Elise Vigil MD Division of Hospitalist Medicine [facility] Anticoagulation Management Service ([facility]) Inpatient Warfarin [...] Will determine if pt is agreeable to [facility] follow-up. 4. Will provide warfarin education. Michelle Lugo RPh, PharmD [facility] Consult Service is available daily [phone] via Stalkthis Secure Chat. If no response, please page [phone]. Hospitalist Progress Note 04/07/2024 Assessment/Plan: Data: (CAT1) [...] Anticipate DC pending clinical improvement and pain., Senior Control Systems Engineer recommendations, Coumadin bridge with heparin Total time [...] asthma, hiatal hernia, GERD who presented to [facility] 04/03 with right leg pain, numbness, tingling causing difficulty ambulating. CTA of LE, showing severe LE atherosclerotic disease with bilateral superficial femoral artery occlusion, and was transferred to [facility] for admission. Interval History: Pain improved today, after surgery In better spirits Was able to stand on legs Adult diet Regular 24HR INTAKE/OUTPUT: No intake or output data in the 24 hours ending 04/07/24 1805 Past Medical History: Past Medical History: Diagnosis Date Asthma Essential hypertension 03/07/2020 GERD (gastroesophageal reflux disease) Hiatal hernia Pure hypercholesterolemia 03/07/2020 LABS: CBC: Recent Labs 04/05/24 0739 04/06/24 0704/07/241 WBC 6.1 4.5 4.0 RBC 3.45* 3.20* 2.86* HGB 10.6* 9.7* 8.6* HCT 32.3* 29.8* 27.0* MCV 93.6 93.1 94.4 RDW 14.4 14.3 14.3 PLT 204 207 202 BMP: Recent Labs 04/05/24 0739 04/06/2471004/07/24250 NA 133* 135 136 K 4.8 4.6 4.7 CL 113* 114* 115* CO2 17* 18* 17* BUN 25* 17 16 CREATININE 1.12* 0.96 0.90 GLUCOSE 102* 97 139* CALCIUM 8.7 8.9 8.8 ANIONGAP 3 4 4 LIVER PROFILE: No results for input(s): "AST", "ALT", "BILITOT", "ALKPHOS", "PROT" in the last 72 hours. No lab exists for component: LABALBU PT/INR: Recent Labs 04/05/2439 04/05/24230604/07/24250 PROTIME 11.9 11.4 11.1 INR 1.1 1.0 [...] Contact: Maxwell Castilloweston/ Fidel Mobile Relation: Child Robert Vigil MD Division of Hospitalist Medicine [facility] Anticoagulation Management Service ([facility]) Inpatient Warfarin Consult HPI: Mel Pop is a 83 y.o. female admitted on 04/03/2024 for Peripheral arterial disease (HCC). Past Medical History: Diagnosis Date Asthma Essential hypertension 03/07/2020 GERD (gastroesophageal reflux disease) Hiatal hernia Pure hypercholesterolemia 03/07/2020 Patient is newly referred to the [facility] clinic for warfarin management. Pt was [...] Date INR Dose 04/07 1.0 5 mg 9/20 1.0 2.5 mg 04/05 1.1 Held for [...] PharmD [facility] Consult Service is available daily [phone] via Stalkthis Secure Chat. If no response, please page [phone]. Department of General Surgery Daily Progress Note [...] follow-up 2wk placed in chart for Dr Krzysztof velazquez D/w George Sarah MD PGY5, General Surgery Pager #[phone] CDI Query Response: Acute thrombus within the [...] Anticipate DC pending clinical improvement and pain., Senior Control Systems Engineer recommendations, Coumadin bridge with heparin Total time [...] Date: 04/03/2024 PCP: Jared Evans MD Room#: N4-301/N4-045 B Brief Hospital course: Patient is an 83-year-old female with history of A-fib on Eliquis, significant tobacco use, HTN, HLD, asthma, hiatal hernia, GERD who presented to [facility] 04/03 with right leg pain, numbness, tingling causing difficulty ambulating. CTA of LE, showing severe LE atherosclerotic disease with bilateral superficial femoral artery occlusion, and was transferred to [facility] for admission. Interval History: Has significant pain [...] Contact: SanchezJosé Miguel/ Fidel Mobile Relation: Child Robert Vigil MD Division of Hospitalist Medicine [facility] Department of General Surgery Daily Progress Note [...] PLT 266 204 207 BMP: Recent Labs 04/03/248 04/04/24 0608 04/05/24 0739 NA 135 135 [...] her request and I spoke with Fidel Sanchez and updated her as well. All questions have been answered to their satisfaction. [facility] Anticoagulation Management Service ([facility]) Inpatient Warfarin Consult HPI: Mel Pop is a 83 y.o. female admitted on 04/03/2024 for Peripheral arterial disease (HCC). Past Medical History: Diagnosis Date Asthma Essential hypertension 03/07/2020 GERD (gastroesophageal reflux disease) Hiatal hernia Pure hypercholesterolemia 03/07/2020 Patient is newly referred to the [facility] clinic for warfarin management. Pt was [...] [facility] follow-up 4. Will provide warfarin education. Marybeth Rahman RPh, PharmD [facility] Consult Service is available daily [phone] via Stalkthis Secure Chat. If no response, please page [phone]. Hospitalist Progress Note 04/05/2024 Assessment/Plan: Data: (CAT1) [...] Discharge Disposition: Anticipate DC pending clinical improvement, real estate consultant recommendations Total time spent (which include [...] Date: 04/03/2024 PCP: Jared Evans MD Room#: N4-444/N4-506 B Brief Hospital course: Patient is an 83-year-old female with history of A-fib on Eliquis, significant tobacco use, HTN, HLD, asthma, hiatal hernia, GERD who presented to [facility] 04/03 with right leg pain, numbness, tingling causing difficulty ambulating. CTA of LE, showing severe LE atherosclerotic disease with bilateral superficial femoral artery occlusion, and was transferred to [facility] for admission. Interval History: Had more RLE [...] Contact: SanchezJosé Miguel/ Fidel Mobile Relation: Child Robert Vigil MD Division of Hospitalist Medicine [facility] Nutrition rescreen completed. Chart reviewed. Patient to be monitored and followed by the diet optics test technician. FADI Harmon [facility] Anticoagulation Management Service ([facility]) Inpatient Warfarin Consult HPI: Mel Pop is a 83 y.o. female admitted on 04/03/2024 for Peripheral arterial disease (HCC). Past Medical History: Diagnosis Date Asthma Essential hypertension 03/07/2020 GERD (gastroesophageal reflux disease) Hiatal hernia Pure hypercholesterolemia 03/07/2020 Patient is newly referred to the [facility] clinic for warfarin management. Pt was referred by SEBASTIAN Tate CNP. Pt is on warfarin for DVT and has a goal INR 2.0 - 3.0. Patient also has a history of afib. Duration of therapy= likely indefinite. Reason for warfarin instead of DOAC: Eliquis failure PCP: Jared Evans MD S/sx of bleeding= none Interacting medications= heparin drip Labs: Recent Labs 04/03/24191718/24 0608 04/05/24 0739 HGB 12.7 12.5 10.6* [...] PharmD [facility] Consult Service is available daily [phone] via Stalkthis Secure Chat. If no response, please page [phone]. Department of General Surgery Daily Progress Note [...] thrombectomy tomorrow, will further discuss with Dr Blankneship today - Vascular will continue to follow Selene Naik MD General Surgery PGY-4 Pager # [phone] Associated attestation - Kristyn Blankenship MD - [...] NPO at midnight for possible thrombectomy tomorrow. [facility] Anticoagulation Management Service ([facility]) Inpatient Warfarin Consult HPI: Mel Pop is a 83 y.o. female admitted on 04/03/2024 for Peripheral arterial disease (HCC). Past Medical History: Diagnosis Date Asthma Essential hypertension 03/07/2020 GERD (gastroesophageal reflux disease) Hiatal hernia Pure hypercholesterolemia 03/07/2020 Patient is newly referred to the [facility] clinic for warfarin management. Pt was [...] Will determine if pt is agreeable to [facility] follow-up 4. Will provide warfarin education. Thank you for this consult Marybeth Rahman RPh, PharmD [facility] Consult Service is available daily [phone] via Stalkthis Secure [employer]. If no response, please page [phone]. Nonbillable encounter. Patient was seen by provider earlier today Patient is an 83-year-old female with history of A-fib on Eliquis, significant tobacco use, HTN, HLD, asthma, hiatal hernia, GERD who presented to [facility] 04/03 with right leg pain, numbness, tingling causing difficulty ambulating. CTA of LE, showing severe LE atherosclerotic disease with bilateral superficial femoral artery occlusion, and was transferred to [facility] for admission. Severe bilateral LE atherosclerotic disease [...] Eliquis -Smoking cessation documented in this encounter [facility] 04-13-2024 Note Formatting of this n ote is different from the original. Images from the original note were not included. Care Management Progress Note INR 2.3 today. Hep drip continued, plan to DC to [facility] today. Plan to have PT seen patient today per her request. Patient is active with [facility]. Await treatment plan and clinical progress. manager fiber will continue to follow for transitional care [...] vasc consult" 04/06/2024 Bernie Cutler APRN - BUSINESS EMPLOYMENT SPECIALIST 04/04/2024 4:04 AM 04/06/2024 Bernie Cutler APRN - BUSINESS EMPLOYMENT SPECIALIST 04/03/2024 11:17 PM Length of Stay (Days): 10 GMLOS: 4 [facility] 04-13-2024 Note Formatting of this n ote is different from the original. Images from the original note were not included. Care Management Progress Note INR 2.3 today. Hep drip continued, plan to DC to [facility] today. Plan to have PT seen patient today per her request. Patient is active with [facility]. Await treatment plan and clinical progress. manager fiber will continue to follow for transitional care [...] vasc consult" 04/06/2024 Bernie Cutler APRN - BUSINESS EMPLOYMENT SPECIALIST 04/04/2024 4:04 AM 04/06/2024 Bernie Cutler APRN - BUSINESS EMPLOYMENT SPECIALIST 04/03/2024 11:17 PM Length of Stay (Days): 10 GMLOS: 4 [facility] 04-13-2024 Plan of care note The patient [...] and discharge instructions Outcome: Progressing [facility] 04-12-2024 Plan of care note Problem: Pain [...] risk of patient condition declining or worsening [facility] 04-12-2024 Note Formatting of this n ote is different from the original. Images from the original note were not included. Care Management Progress Note Patent currently still on Hep Drip, INR 1.9. Will convert to oral when appropriate. Pt active with [facility]- will continue services at discharge. Await treatment plan and clinical progress. manager fiber will continue to follow for transitional care needs for discharge planning. Discharge Milestones and Delays Expected date/time: 04/13/2024 Expected discharge disposition: Home Health Services Discharge Milestones Place discharge order Complete med reconciliation Case mgmt discharge readiness Clinical Stability Diagnostic Workup Senior Control Systems Engineer Recommendations Facility Choice Selection Imaging Results PT [...] vasc consult" 04/06/2024 Bernie Cutler APRN - BUSINESS EMPLOYMENT SPECIALIST 04/04/2024 4:04 AM 04/06/2024 Bernie Cutler APRN - BUSINESS EMPLOYMENT SPECIALIST 04/03/2024 11:17 PM Length of Stay (Days): 9 GMLOS: 4 [facility] 04-12-2024 Note Formatting of this n ote is different from the original. Images from the original note were not included. Care Management Progress Note Patent currently still on Hep Drip, INR 1.9. Will convert to oral when appropriate. Pt active with [facility]- will continue services at discharge. Await treatment plan and clinical progress. manager fiber will continue to follow for transitional care needs for discharge planning. Discharge Milestones and Delays Expected date/time: 04/13/2024 Expected discharge disposition: Home Health Services Discharge Milestones Place discharge order Complete med reconciliation Case mgmt discharge readiness Clinical Stability Diagnostic Workup Senior Control Systems Engineer Recommendations Facility Choice Selection Imaging Results PT [...] vasc consult" 04/06/2024 Bernie Cutler APRN - BUSINESS EMPLOYMENT SPECIALIST 04/04/2024 4:04 AM 04/06/2024 Bernie Cutler APRN - [facility] 04/03/2024 11:17 PM Length of Stay (Days): 9 GMLOS: 4 T [facility] 04-12-2024 Plan of care note The patient [...] medications, and discharge instructions Outcome: Progressing T [facility] 04-11-2024 Note Formatting of this n ote is different from the original. Images from the original note were not included. Care Management Progress Note Patent currently still on Hep Drip, INR 1.9. Will convert to oral when appropriate. Pt active with [facility]- will continue services at discharge. Await treatment plan and clinical progress. manager fiber will continue to follow for transitional care [...] vasc consult" 04/06/2024 Bernie Cutler APRN - BUSINESS EMPLOYMENT SPECIALIST 04/04/2024 4:04 AM 04/06/2024 Bernie Cutler APRN - BUSINESS EMPLOYMENT SPECIALIST 04/03/2024 11:17 PM Length of Stay (Days): 8 GMLOS: 4 [facility] 04-11-2024 Note Formatting of this n ote is different from the original. Images from the original note were not included. Care Management Progress Note Patent currently still on Hep Drip, INR 1.9. Will convert to oral when appropriate. Pt active with [facility]- will continue services at discharge. Await treatment plan and clinical progress. manager fiber will continue to follow for transitional care [...] vasc consult" 04/06/2024 Bernie Cutler APRN - BUSINESS EMPLOYMENT SPECIALIST 04/04/2024 4:04 AM 04/06/2024 Bernie Cutler APRN - BUSINESS EMPLOYMENT SPECIALIST 04/03/2024 11:17 PM Length of Stay (Days): 8 GMLOS: 4 [facility] 04-11-2024 Plan of care note Problem: Pain [...] risk of patient condition declining or worsening [facility] 04-11-2024 Plan of care note The patient [...] level or baseline comfort level Outcome: Progressing [facility] 04-10-2024 Plan of care note Problem: Pain [...] risk of patient condition declining or worsening [facility] 04-10-2024 Note Formatting of this n ote is different from the original. Images from the original note were not included. Care Management Progress Note Patient currently still on Heparin Drip, INR 1.6 today.Will convert to oral when appropriate. Pt active with [facility]- will continue services at discharge. Await treatment plan and clinical progress. manager fiber will continue to follow for transitional care needs for discharge planning. Discharge Milestones and Delays Expected date/time: 04/11/2024 Expected discharge disposition: Home or Self Care Discharge Milestones Place discharge order Complete med reconciliation Case mgmt discharge readiness Clinical Stability Diagnostic Workup Senior Control Systems Engineer Recommendations Facility Choice Selection Imaging Results Patient Education Complete Expected Discharge History Expected Date/Time Set By Reviewed At 04/11/2024 Cathi Avila RN 04/10/2024 8:41 AM hep gtt- transitioning to coumadin" 04/10/2024 iVrginia Rehman RN 04/09/2024 8:13 AM 04/08/2024 Virginia Rehman RN 04/06/2024 8:13 AM hep gtt, poss thrombectomy 04/07/2024 Virginia Rehman RN 04/05/2024 8:03 AM hep gtt, poss thrombectomy tomorrow" 04/06/2024 Virginia Rehman RN 04/04/2024 8:48 AM hep gtt, [place], vasc consult" 04/06/2024 Bernie Cutler APRN - BUSINESS EMPLOYMENT SPECIALIST 04/04/2024 4:04 AM 04/06/2024 Bernie Cutler APRN - BUSINESS EMPLOYMENT SPECIALIST 04/03/2024 11:17 PM Length of Stay (Days): 7 GMLOS: 4 [facility] 04-10-2024 Note Formatting of this n ote is different from the original. Images from the original note were not included. Care Management Progress Note Patient currently still on Heparin Drip, INR 1.6 today.Will convert to oral when appropriate. Pt active with [facility]- will continue services at discharge. Await treatment plan and clinical progress. manager fiber will continue to follow for transitional care needs for discharge planning. Discharge Milestones and Delays Expected date/time: 04/11/2024 Expected discharge disposition: Home or Self Care Discharge Milestones Place discharge order Complete med reconciliation Case mgmt discharge readiness Clinical Stability Diagnostic Workup Senior Control Systems Engineer Recommendations Facility Choice Selection Imaging Results Patient [...] vasc consult" 04/06/2024 Bernie Cutler APRN - BUSINESS EMPLOYMENT SPECIALIST 04/04/2024 4:04 AM 04/06/2024 Bernie Cutler APRN - BUSINESS EMPLOYMENT SPECIALIST 04/03/2024 11:17 PM Length of Stay (Days): 7 GMLOS: 4 [facility] 04-09-2024 Note Formatting of this n ote is different from the original. Images from the original note were not included. Care Management Progress Note Remains on heparin gtt while transitioning to coumadin. Consult Hemology. Pt active with [facility]- will continue services at discharge. Await treatment plan and clinical progress. manager fiber will continue to follow for transitional care needs for discharge planning. Discharge Milestones and Delays Expected date/time: 04/10/2024 Expected discharge disposition: Home or Self Care Discharge Milestones Place discharge order Complete med reconciliation Case mgmt discharge readiness Clinical Stability Diagnostic Workup Senior Control Systems Engineer Recommendations Facility Choice Selection Imaging Results Patient [...] 4:04 AM 04/06/2024 Bernie Cutler APRN - BUSINESS EMPLOYMENT SPECIALIST 04/03/2024 11:17 PM Length of Stay (Days): 6 GMLOS: 3.1 [facility] 04-09-2024 Note Formatting of this n ote is different from the original. Images from the original note were not included. Care Management Progress Note Remains on heparin gtt while transitioning to coumadin. Consult Hemology. Pt active with [facility]- will continue services at discharge. Await treatment plan and clinical progress. manager fiber will continue to follow for transitional care needs for discharge planning. Discharge Milestones and Delays Expected date/time: 04/10/2024 Expected discharge disposition: Home or Self Care Discharge Milestones Place discharge order Complete med reconciliation Case mgmt discharge readiness Clinical Stability Diagnostic Workup Senior Control Systems Engineer Recommendations Facility Choice Selection Imaging Results Patient [...] vasc consult" 04/06/2024 Bernie Cutler APRN - BUSINESS EMPLOYMENT SPECIALIST 04/04/2024 4:04 AM 04/06/2024 Bernie Cutler APRN - BUSINESS EMPLOYMENT SPECIALIST 04/03/2024 11:17 PM Length of Stay (Days): 6 GMLOS: 3.1 [facility] 04-08-2024 Plan of care note Progressing [facility] 04-07-2024 Plan of care note The patient [...] or baseline comfort level Outcome: Progressing . [facility] 04-07-2024 Hospital Discharge instructions Lolita Sarah MD [...] Rahman RPh - 04/13/2024 1:07 PM EDT [facility] Clinic will monitor your warfarin after you go home. [facility] Phone number: [phone]. Home care nurse will check your INR Monday 04/16 and [facility] will contact you with warfarin dosing [...] detachment Hyperglycemia Osteopenia of left femoral neck [facility] current use of anticoagulant therapy Seasonal allergies [...] 8 oz) Mental Status: {HECTOR Patient Mental Status:25600} IV Access: {HECTOR IV Access:27640} Nursing Mobility/ADLs: Walking {MAHESH ADL:29416::"Independent"} Transfer {MAHESH ADL:04405::"Independent"} Bathing {MAHESH ADL:46944::"Independent"} Dressing {MAHESH ADL:31182::"Independent"} Toileting {MAHESH ADL:99832::"Independent"} Feeding {MAHESH ADL:54757::"Independent"} Ui Ux Developer {MAHESH ADL:55536::"Independent"} Med Delivery {yes/no:25167} Wound Care Documentation and Therapy: Elimination: Continence: Bowel: {yes/no:11883} Bladder: {yes/no:32584} Urinary Catheter: {HECTOR Urinary Catheter:40873} Colostomy/Ileostomy/Ileal Conduit: {YES / NO:} Date of Last BM: Intake/Output Summary (Last 24 hours) at 04/04/2024 1135 Last data filed at 04/03/20242056 Gross per 24 hour Intake 500 ml Output -- Net 500 ml I/O last 3 completed shifts: In: 500 (6.9 mL/kg) [IV Piggyback:500] Out: - (0 mL/kg) Weight: 72.3 kg Safety Concerns: {HECTOR Safety Concerns:19465} Impairments/Disabilities: {HECTOR Impairments/Disabilities:28359} Nutrition Therapy: Current Nutrition Therapy: {HECTOR Diet List:59469} Routes of Feeding: {routes of feedin} Liquids: {liquid consistency:96174} Daily Fluid Restriction: {daily fluid restriction:28006} Last Modified Barium Swallow with Video (Video Swallowing Test): {done not done:40707} Treatments at the Time of Hospital Discharge: Respiratory Treatments: Oxygen Therapy: {Therapy; copd oxygen:76071} Ventilator: {HECTOR Ventilator:64716} Rehab Therapies: {GEN THERAPY DISCIPLINE SCAL:8962972} Weight Bearing Status/Restrictions: {POD WEIGHT BEARIN} Other Medical Equipment (for information only, NOT a DME order): {Assistive Devices DME:16041} Other Treatments: Patient's personal belongings (please select all that are sent with patient): {HECTOR Patient Belongings:21230} RN SIGNATURE: {E-signature:20932} CASE MANAGEMENT/SOCIAL WORK SECTION Inpatient Status Date: Discharging to Facility/ Agency Name: [facility] at Home Address: [address] [place] [address] Dialysis Facility (if applicable) Name: Address: Dialysis Schedule: Phone: Fax: Cold Storage Superintendent/Prosthetic Dentist signature: {E-signature:70318} PHYSICIAN SECTION Name: Mel Pop Prognosis: {Rehab Prognosis:85719} Condition at Discharge: {Patient Condition:39645} Rehab Potential (if transferring to Rehab): {Rehab Prognosis:68113} Recommended Labs or Other Treatments After Discharge: The individual is being admitted to a nursing facility directly from an [facility] or a unit of a [facility] that is not operated by or licensed by [facility] under section 5119.14 or 5160-3-15.1 5 The individual requires the level of services provided by a nursing facility for the condition for which he or she was treated in the hospital and, Physician Certification: I certify the above information and transfer of Mel Pop is necessary for the continuing treatment of the diagnosis listed and that she requires {HECTOR Level of Care:51083} for {greater less than:58129} 30 days. Update Admission H&P: {HECTOR Changes in H&P:82858} PHYSICIAN SIGNATURE: {E-signature:50187} documented in this encounter [facility] 04-07-2024 Nurse Note NO changes to heparin infusion at this time. [facility] 04-06-2024 Note Formatting of this n ote is different from the original. Images from the original note were not included. Care Management Progress Note Pt s/p thrombectomy this am with vascular. Remains on heparin gtt while transitioning to coumadin. Pt active with [facility]- will continue services at discharge. Discharge Milestones [...] Length of Stay (Days): 3 GMLOS: 3.1 [facility] 04-06-2024 Note Formatting of this n ote is different from the original. Images from the original note were not included. Care Management Progress Note Pt s/p thrombectomy this am with vascular. Remains on heparin gtt while transitioning to coumadin. [facility] will continue services at discharge. Discharge Milestones [...] vasc consult" 04/06/2024 Bernie Cutler APRN - BUSINESS EMPLOYMENT SPECIALIST 04/04/2024 4:04 AM 04/06/2024 Bernie Cutler APRN - SHAMIKA 04/03/2024 11:17 PM Length of Stay (Days): 3 GMLOS: 3.1 [facility] 04-06-2024 Note Formatting of this n ote might be different from the original. Patient report called to 4N RN and denies any further questions. Patient resting comfortably and no signs of distress. Per resident patient to lay flat for 2 hours and restart heparin GTT at 1215. Transport notified. [facility] 04-06-2024 Note Formatting of this n ote might be different from the original. Patient report called to 4N RN and denies any further questions. Patient resting comfortably and no signs of distress. Per resident patient to lay flat for 2 hours and restart heparin GTT at 1215. Transport notified. [facility] 04-06-2024 Note Formatting of this n ote might be different from the original. SW assisted patient with completion of Health Care Power of Emotional Disabilities Teacher. One copy placed in patient chart, one copy sent to medical records and two copies given to patient. Requested by patient, while at bedside this SW spoke to patient's son via patients phone to explain that HCPOA was being completed by patient. Patients son José Miguel Castillo ([phone]) agreed to be this patients agent on the HCPOA and confirmed understanding. [employer] [facility] 04-06-2024 Note Formatting of this n ote might be different from the original. SW assisted patient with completion of Health Care Power of Emotional Disabilities Teacher. One copy placed in patient chart, one copy sent to medical records and two copies given to patient. Requested by patient, while at bedside this SW spoke to patient's son via patients phone to explain that HCPOA was being completed by patient. Patients danny Castillo ([phone]) agreed to be this patients agent on the HCPOA and confirmed understanding. [facility] 04-06-2024 Note Formatting of this n ote [...] technique was used to place a 5 Panamanian sheath. A Skillatonson wire was able to be advanced in the inferior vena cava without difficulty. The 5 Panamanian sheath was then upsized to a 16 Panamanian sheath and the penumbra flash suction thrombectomy device was prepared per jewelry inspector's instructions. The patient was also given 5000 units of heparin for systemic anticoagulation at this time. The Penumbra device was then inserted through the 16 Panamanian sheath and a suction thrombectomy was performed [...] device was removed as was the 16 Panamanian sheath and an 0 silk suture was [...] the case. Kristyn Blankenship MD Vascular Surgery [facility] 04-06-2024 Note Formatting of this n ote is different from the original. Date: 04/06/2024 Location: [facility] OR Name: Mel Pop, : 1940, Diagnosis Pre-op Diagnosis * Right leg DVT (HCC) [I82.401] Post-op Diagnosis * Right leg DVT (HCC) [I82.401] Procedures RIGHT LOWER EXTREMITY VENOUS MECHANICAL THROMBECTOMY 44799 - [place] PRQ TRANSLUMINAL MECHANICAL THROMBECTOMY VEIN Surgeons * Kristyn Blankenship - Primary Procedure Summary Anesthesia: General ASA: III Estimated Blood Loss: 300 mL Drains: * None in log * Staff: Director Network Development: Negrita Elizabeth RN; Amira Burton RN Scrub Person: Linnette [...] antibiotics are not indicated for this procedure. [facility] 04-06-2024 Note Formatting of this n ote [...] technique was used to place a 5 Panamanian sheath. A Bentson wire was able to be advanced in the inferior vena cava without difficulty. The 5 Panamanian sheath was then upsized to a 16 Panamanian sheath and the penumbra flash suction thrombectomy device was prepared per jewelry inspector's instructions. The patient was also given 5000 units of heparin for systemic anticoagulation at this time. The Penumbra device was then inserted through the 16 Panamanian sheath and a suction thrombectomy was performed [...] device was removed as was the 16 Panamanian sheath and an 0 silk suture was [...] the case. Kristyn Blankenship MD Vascular Surgery [facility] 04-06-2024 Note Formatting of this n ote is different from the original. Date: 04/06/2024 Location: [facility] OR Name: Mel Pop, : 1940, Diagnosis Pre-op Diagnosis * Right leg DVT (HCC) [I82.401] Post-op Diagnosis * Right leg DVT (HCC) [I82.401] Procedures RIGHT LOWER EXTREMITY VENOUS MECHANICAL THROMBECTOMY 49071 - [place] PRQ TRANSLUMINAL MECHANICAL THROMBECTOMY VEIN Surgeons * Kristyn Blankenship - Primary Procedure Summary Anesthesia: General ASA: III Estimated Blood Loss: 300 mL Drains: * None in log * Staff: Director Network Development: Negrita Elizabeth RN; Amira Burton RN Scrub Person: Linnette [...] antibiotics are not indicated for this procedure. [facility] 04-06-2024 Note Formatting of this n ote might be different from the original. Dr Blankenship at bedside. She called family to update them on procedure time change [facility] 04-06-2024 Note Formatting of this n ote might be different from the original. Dr Blankenship at bedside. She called family to update them on procedure time change [facility] 04-06-[address] Blankenship at bedside. She called family to update them on procedure time change [facility] 04-05-2024 Note Formatting of this n ote is different from the original. Images from the original note were not included. Care Management Progress Note Vascular following with noted plan for possible thrombectomy tomorrow. Remains on heparin gtt while transitioning to coumadin per oncology recommendation. Pt from home alone- indep and active with [facility]- will return. Discharge Milestones and Delays [...] Length of Stay (Days): 2 GMLOS: 3.1 [facility] 04-05-2024 Note Formatting of this n ote is different from the original. Images from the original note were not included. Care Management Progress Note Vascular following with noted plan for possible thrombectomy tomorrow. Remains on heparin gtt while transitioning to coumadin per oncology recommendation. Pt from home alone- indep and active with [facility]- will return. Discharge Milestones and Delays [...] vasc consult" 04/06/2024 Bernie Cutler APRN - BUSINESS EMPLOYMENT SPECIALIST 04/04/2024 4:04 AM 04/06/2024 Bernie Cutler APRN - SHAMIKA 04/03/2024 11:17 PM Length of Stay (Days): 2 GMLOS: 3.1 [facility] 04-05-2024 Plan of care note The patient is Moderately Stable - Low risk of patient condition declining or worsening The patient's goals for the shift include met The clinical goals for the shift include met [facility] 04-04-2024 Consult note Formatting of th is note is different from the original. Images from the original note were not included. [facility] Inpatient Consultation [facility] Mel Pop : 1940(83 y.o.) Date: April 04, 2024 Attending: Dr. Patel Reason for consult: Primary Care Physician - Jared Evans MD Date of Admission - 04/03/2024 5:47 PM Subjective: Chief Complaint Patient presents with Numbness Leg Swelling HPI Mel Pop is a 83 y.o. woman with a history of severe atherosclerosis, COPD, former smoker, diverticulosis, afib, hypertension, and GERD who presented to [facility] for right lower extremity pain. [...] vessels. Vascular surgery recommended transfer to [facility]. PVR and BLE US results pending however [...] called her listed contacts (her friend and [id number] however they do not manage her pill [...] eliquis. I have left a voicemail with [facility] pharmacy in [place] to see if the Eliquis is being [...] min Stress: No Stress Concern Present (04/04/2024) [place] [employer] - Occupational Stress Questionnaire Feeling of Stress : Not at all Social Connections: Moderately Isolated (04/04/2024) Social Connection and Isolation Panel [NHANES] Frequency of Communication with Friends and Family: More than three times a week Frequency of Social Gatherings with Friends and Family: More than three times a week Attends Mu-Ism Services: 1 to 4 times per year [...] EC tablet 07/18/23 Yes Historical Provider, MD Flores Ellipta 100-62.5-25 MCG/ACT aerosol powder 05/19/23 Yes Historical [...] at 04/04/2024 1319 Last data filed at 04/03/2024 205 Gross per 24 hour Intake 500 ml [...] 04/03/2024 [facility] 1940 [id number] Exam Date/Time: 04/03/2024 21:06 Procedure: CT HEAD [...] completing clinical documentation as well as with [id number]-[id number] patient care, performing a medically appropriate examination, [...] well as answering questions. Andre Patel MD [facility] [employer] Work Phone: 04-04-2024 Consult note Formatting of th is note is different from the original. Images from the original note were not included. [facility] Inpatient Consultation [facility] Mel Pop : 1940(83 y.o.) Date: April 04, 2024 Attending: Dr. Patel Reason for consult: Primary Care Physician - Jared Evans MD Date of Admission - 04/03/2024 5:47 PM Subjective: Chief Complaint Patient presents with Numbness Leg Swelling HPI Mel Pop is a 83 y.o. woman with a history of severe atherosclerosis, COPD, former smoker, diverticulosis, afib, hypertension, and GERD who presented to [facility] for right lower extremity pain. [...] vessels. Vascular surgery recommended transfer to [facility]. PVR and BLE US results pending however [...] called her listed contacts (her friend and [id number] however they do not manage her pill [...] left a voicemail with [facility] pharmacy in [place] to see if the Eliquis is being [...] min Stress: No Stress Concern Present (04/04/2024) [place] [employer] Occupational [employer] - Occupational Stress Questionnaire Feeling of Stress : Not at all Social Connections: Moderately Isolated (04/04/2024) Social Connection and Isolation Panel [NHANES] Frequency of Communication with Friends and Family: More than three times a week Frequency of Social Gatherings with Friends and Family: More than three times a week Attends Mu-Ism Services: 1 to 4 times per year [...] Electronically Signed On 04-04-2024 03:48:37 EDT by Soruav Swenson CTA aorta BL iliofemoral runoff w [...] IV contrast Result Date: 04/03/2024 Patient Name: POP, MEL : 1940 [facility]#: [id number] Exam Date/Time: 04/03/2024 21:06 Procedure: CT HEAD [...] completing clinical documentation as well as with [id number] patient care, performing a medically appropriate examination, counseling / educating the patient/family/caregiver, and ordering medications, tests, or procedures. Electronically signed by Anthony Yee APRN - BUSINESS EMPLOYMENT SPECIALIST Attending Attestation Note: I have personally performed [...] Lolita Sarah MD PGY5, General Surgery Pager #[phone] Past Medical History: Diagnosis Date Asthma Essential [...] min Stress: No Stress Concern Present (04/04/2024) [place] [employer] - Occupational Stress Questionnaire Feeling of Stress : Not at all Social Connections: Moderately Isolated (04/04/2024) Social Connection and Isolation Panel [NHANES] Frequency of Communication with Friends and Family: More than three times a week Frequency of Social Gatherings with Friends and Family: More than three times a week Attends Mu-Ism Services: 1 to 4 times per year [...] TESTING: Patient Name: MEL POP : 1940 [facility]#: [id number] Exam Date/Time: 04/03/2024 21:14 Procedure: CTA AORTA [...] history and claudication symptoms. Abs show right MICHLELE 0.55. and left MICHELLE 0.62. 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 On exam there is right lower extremity swelling. No evidence of phlegmasia. Heparin gtt initiated at [facility] prior to transfer and continued here. She notes missed doses of her Eliquis. Recommend compression and elevation of the right lower extremity. Can consider mechanical thrombectomy however given patient's age, this may be more risk than of benefit. Will continue to monitor for symptom improvement on anticoagulation alone. documented in this encounter [facility] 04-04-2024 Note Formatting of this n ote might be different from the original. Care Managment Initial Assessment Date: 04/04/2024 Patient Name: Mel Pop : 1940 Patient Information Source of Information: Patient Cognition/Language: WFL - Within Functional Limits Permission given to speak with patient sales representative metals/caregiver as indicated: Confirmation of Payer with patient/family: Yes Payer Name: rey : No Confirmation of Primary Care Physician: [...] home alone and indep. [facility] for continued services. Pt uses walker/cane at baseline. Pt has insurance, PCP and able to obtain meds. Pt's friends help with transportation. No needs antic at discharge. Virginia Rehman, RN [facility] 04-04-2024 Note Formatting of this n ote might be different from the original. Care Managment Initial Assessment Date: 04/04/2024 Patient Name: Mel Pop : 1940 Patient Information Source of Information: Patient Cognition/Language: WFL - Within Functional Limits Permission given to speak with patient sales representative metals/caregiver as indicated: Confirmation of Payer with patient/family: Yes Payer Name: rey : No Confirmation of Primary Care Physician: [...] Home Health Services Care Services Provider Name: [facility] Dialysis Type: NA Durable Medical Equipment: Cane, [...] home alone and indep. Pt active with [facility]- liaison following for continued services. Pt uses walker/cane at baseline. Pt has insurance, PCP and able to obtain meds. Pt's friends help with transportation. No needs antic at discharge. Virginia Rehman RN [facility] 04-04-2024 Note Formatting of this n ote is different from the original. Start PACC Note Home Health Referral Educated patient on Home Care and services available. Patient offered choice of available HHC and agreeable to SN/PT services with [facility] at Home - Home Care. Care Types: [...] is noted as yes - consider a ELECTRIC METER REPAIRER HELPER evaluation once the patient returns home. START PATIENT REGISTRATION INFORMATION Order Information Order Signing Physician: Robert Vigil MD Service Ordered RN ?: Yes Service Ordered PT ?: Yes Service Ordered OT ?: No Service Ordered ST ?: No Service Ordered ELECTRIC METER REPAIRER HELPER?:No Service Ordered AIRBRUSH ARTIST TECHNICAL?: No Following Physician: Jared Evans MD Following Physician Overseeing Physician: Jared Evans MD (Required for Residents only) Agreeable to Follow? Yes Date/Time of Call 04/04/24 11:36 AM, Spoke with: Patient is a DEB. Care Coordination Same Day SOC?: No Primary Care Physician: Jared Evans MD Primary Care Physician Primary Care Physician Address: [address] [place] [id number] Visit Instructions: N/A Service Discharge Location Type: Home with Home Care Service Facility Name: N/A Service Floor Facility: N/A Service Room No: N/A Demographics Patient Last Name: Jose Alberto Patient First Name: Mel Language/Communication Barrier: none Service Address: [address] [place] [address] Service City: [place] Service ST: [place] Service ZIP: [address] Service Other phone numbers: Telephone Information: Emergency Contact: Extended Emergency Contact Information Primary Emergency Contact: Damaris Villafana Mobile Relation: Friend Secondary Emergency Contact: SanchezJosé Miguel/ Fidel Mobile Relation: Child Admission Information Admit Date: 04/03/2024 Patient status at discharge: Inpatient Admitting Diagnosis: Right leg pain [M79.604] Peripheral arterial disease (HCC) [I73.9] Right leg weakness [R29.898] Atrial fibrillation, unspecified type (HCC) [I48.91] Caregiver Information Caregiver First Name: na Caregiver Last Name: na Caregiver Relationship to Patient na Caregiver Phone Number: na Caregiver Notes: N/A [employer] Daily[employer]ico List No END PATIENT REGISTRATION INFORMATION Pt [...] intervention. Discharge Date: pending Referral Source-PACC: (Hospital/Unit): [facility] / N4-461/N4-461 B End PACC Note [facility] 04-04-2024 Note Formatting of this n ote is different from the original. Start PACC Note Home Health Referral Educated patient on Home Care and services available. Patient offered choice of available HHC and agreeable to SN/PT services with [facility] - Home Care. Care Types: [...] is noted as yes - consider a ELECTRIC METER REPAIRER HELPER evaluation once the patient returns home. START PATIENT REGISTRATION INFORMATION Order Information Order Signing Physician: Robert Vigil MD Service Ordered RN ?: Yes Service Ordered PT ?: Yes Service Ordered OT ?: No Service Ordered ST ?: No Service Ordered ELECTRIC METER REPAIRER HELPER?:No Service Ordered AIRBRUSH ARTIST TECHNICAL?: No Following Physician: Jared Evans MD Following Physician Overseeing Physician: Jared Evans MD (Required for Residents only) Agreeable to Follow? Yes Date/Time of Call 04/04/24 11:36 AM, Spoke with: Patient is a DEB. Care Coordination Same Day SOC?: No Primary Care Physician: Jared Evans MD Primary Care Physician Primary Care Physician Address: [address] [place] [address] / [facility] [address] Visit Instructions: N/A Service Discharge Location Type: Home with Home Care Service Facility Name: N/A Service Floor Facility: N/A Service Room No: N/A Demographics Patient Last Name: Jose Alberto Patient First Name: Mel Language/Communication Barrier: none Service Address: [facility] [address] Service City: [place] Service ST: [place] Service ZIP: [address] Service Other phone numbers: Telephone Information: Emergency [...] Caregiver Phone Number: na Caregiver Notes: N/A [employer] List No END PATIENT REGISTRATION INFORMATION Pt [...] intervention. Discharge Date: pending Referral Source-PACC: (Hospital/Unit): [facility] / N4-461/N4-461 B End PACC Note [facility] 04-04-2024 Plan of care note The patient is Moderately Stable - Low risk of patient condition declining or worsening The patient's goals for the shift include safety The clinical goals for the shift include therapeutic aptt [facility] 04-04-2024 Note Formatting of this n ote might be different from the original. Patient is currently active with [facility]. The patients current certification period will on 05/18/24. The patient is currently receiving PT services through the agency. Interventional Cardiologist to continue to follow. [facility] 04-04-2024 Note Formatting of this n ote might be different from the original. Patient is currently active with [facility]. The patients current certification period will on 05/18/24. The patient is currently receiving PT services through the agency. Interventional Cardiologist to continue to follow. [facility] 04-04-2024 Consult note Associated Order (s): IP [...] Lolita Sarah MD PGY5, General Surgery Pager #[phone] Past Medical History: Diagnosis Date Asthma Essential [...] min Stress: No Stress Concern Present (04/04/2024) [place] [employer] - Occupational Stress Questionnaire Feeling of Stress : Not at all Social Connections: Moderately Isolated (04/04/2024) Social Connection and Isolation Panel [NHANES] Frequency of Communication with Friends and Family: More than three times a week Frequency of Social Gatherings with Friends and Family: More than three times a week Attends Mu-Ism Services: 1 to 4 times per year [...] TESTING: Patient Name: MEL POP : 1940 [facility]#: [id number] Exam Date/Time: 04/03/2024 21:14 Procedure: CTA AORTA [...] evidence of phlegmasia. Heparin gtt initiated at [facility] prior to transfer and continued here. She notes missed doses of her Eliquis. Recommend compression and elevation of the right lower extremity. Can consider mechanical thrombectomy however given patient's age, this may be more risk than of benefit. Will continue to monitor for symptom improvement on anticoagulation alone. [facility] Work Phone: 04-04-2024 Note Formatting of this [...] - DO NOT do CPR, intubation] [_] [DNR-INSULATION PACKER - Comfort care only] [_] DNR form [...] and/or family/surrogate. Pratibha Avelar DO Acute care [facility] 04/04/2024, 5:40 AM [facility] 04-04-2024 Note Formatting of this n ote [...] - DO NOT do CPR, intubation] [_] [DNR-INSULATION PACKER - Comfort care only] [_] DNR form [...] with patient and/or family/surrogate. Pratibha Avelar DO [facility] 04/04/2024, 5:40 AM [facility] 04-04-2024 History and physical note Attending History [...] min Stress: No Stress Concern Present (04/04/2024) [place] [employer] Health - Occupational Stress Questionnaire Feeling of Stress : Not at all Social Connections: Moderately Isolated (04/04/2024) Social Connection and Isolation Panel [NHANES] Frequency of Communication with Friends and Family: More than three times a week Frequency of Social Gatherings with Friends and Family: More than three times a week Attends Mu-Ism Services: 1 to 4 times per year [...] DO Division of Hospitalist Medicine Inpatient Medical Services/[facility] Work Phone: 04-04-2024 Note [facility] 04-04-2024 History and physical note Attending [...] min Stress: No Stress Concern Present (04/04/2024) [place] [employer] Health - Occupational Stress Questionnaire Feeling of Stress : Not at all Social Connections: Moderately Isolated (04/04/2024) Social Connection and Isolation Panel [NHANES] Frequency of Communication with Friends and Family: More than three times a week Frequency of Social Gatherings with Friends and Family: More than three times a week Attends Mu-Ism Services: 1 to 4 times per year [...] Relation: Child Pratibha Avelar DO [facility] documented in this encounter [facility] 04-04-2024 Plan of care note The patient is Moderately Stable - Low risk of patient condition declining or worsening The patient's goals for the shift include met The clinical goals for the shift include met Over the shift, the patient did not make progress toward the following goals. Barriers to progression include . Recommendations to address these barriers include . [facility] 04-04-2024 Emergency department Note Report to Delia Bond RN 04/04/24 034 [facility] 04-04-2024 Emergency department Note Report to Delia Bond RN 04/04/24341 Multiple attempts made to call report to [facility] with phone number provided by bus system operator, but when phone number dialed RN only gets busy tone. Will try again. Shannon Bond RN 04/04/24 033 [facility] at bedside to transport pt to [facility]. Paperwork with EMS Shannon Bond RN 04/04/24 6816 EMERGENCY DEPARTMENT ENCOUNTER Pt Name: Mel Pop [...] Resource Strain: Low Risk (05/18/2022) Received from [facility] Overall Financial Resource Strain (CARDIA) Difficulty of Paying Living Expenses: Not hard at all Food Insecurity: No Food Insecurity (05/18/2022) Received from [facility] Hunger Vital Sign Worried About Running Out of Food in the Last Year: Never true Ran Out of Food in the Last Year: Never true Transportation Needs: No Transportation Needs (05/18/2022) Received from [facility] PRAPARE - Transportation Lack of Transportation (Medical): No Lack of Transportation (Non-Medical): No Housing Stability: Unknown (05/18/2022) Received from [facility] Housing Stability Vital Sign Unable to [...] and DIFFERENTIAL DIAGNOSIS/MDM: Vitals: Vitals: 04/03/24 2033 04/03/24 2046 04/03/243 04/03/242203 BP: (!) 142/63 (!) 142/63 (!) 151/86 [...] heparinize or admit her to [facility] in case she needs an emergent angio.. [...] signed) Emergency Medicine Provider SEBASTIAN Herrera CNP 04/03/248 Emergency Department Encounter [facility] Patient: Mel Pop : [...] recommends heparin drip and transferred to [facility], 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 Patient admitted to [facility]. Patient in agreement with plan. Diagnostics interpreted [...] or other complaints. documented in this encounter [facility] 04-04-2024 Emergency department Note Multiple attempts made to call report to [facility] with phone number provided by bus system operator, but when phone number dialed RN only gets busy tone. Will try again. Shannon Bond RN 04/04/24 0331 [facility] 04-04-2024 Emergency department Note [facility] at bedside to transport pt to [facility]. Paperwork with EMS Shannon Bond RN 04/04/24 0314 [facility] 04-03-2024 Emergency department Triage note Pt presents [...] upon arrival. No SOB or other complaints. [facility] 04-03-2024 Physician Emergency department Note EMERGENCY DEPARTMENT [...] Resource Strain: Low Risk (05/18/2022) Received from [facility] Overall Financial Resource Strain (CARDIA) Difficulty of Paying Living Expenses: Not hard at all Food Insecurity: No Food Insecurity (05/18/2022) Received from [facility] Hunger Vital Sign Worried About Running Out of Food in the Last Year: Never true Ran Out of Food in the Last Year: Never true Transportation Needs: No Transportation Needs (05/18/2022) Received from [facility] PRAPARE - Transportation Lack of Transportation (Medical): No Lack of Transportation (Non-Medical): No Housing Stability: Unknown (05/18/2022) Received from [facility] Housing Stability Vital Sign Unable to [...] COURSE and DIFFERENTIAL DIAGNOSIS/MDM: Vitals: Vitals: 04/03/243 04/03/24 2046 04/03/24 2203 04/03/24 2204 BP: (!) 142/63 (!) 142/63 (!) 151/86 [...] 82. I also reviewed external records from [facility]. I discussed their care with [facility]. Consideration for escalation of care with: Admission/observation discussed case with Dr. Blankenship, will place her on heparin, she does have reconstitution past the mid femoral occlusion and she has normal range of motion to the lower extremities but she has severe disease to the lower extremities will heparinize or admit her to [facility] in case she needs an emergent angio.. [...] Emergency Medicine Provider SEBASTIAN Herrera CNP 04/03/242237 [facility] 04-03-2024 Physician Emergency department Note Emergency Department Encounter [facility] Patient: Mel Pop : [...] recommends heparin drip and transferred to [facility], 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 Patient admitted to [facility]. Patient in agreement with plan. Diagnostics interpreted [...] [employer] Winifred Cornell DO 04/06/24 8752 [facility] [employer] Work Phone: 07-27-2023 History of Present illness Narrative [facility] [address] [place] [address] [place] [id number] Dept: [phone] Dept Mel Solizerd 1940 [id number] 07/27/2023 HISTORY OF PRESENT ILLNESS: Mel is [...] improve. Electronically signed by Ming Weinberg MD [facility] Department of Orthopedic surgery 07/27/2023 5:21 PM Voice recognition was used for portions of this note and although it was reviewed prior to signing some incorrect words or phrases could be present. documented in this encounter [facility] 07-06-2022 Miscellaneous Notes PATIENT INFORMATION Record ID: [id number] Patient Name: [facility] Resources: [facility] [place]: [facility] Attending: Iwona Chu Center: Internal Medicine and Geriatrics INSTRUCTIONS All Clear SN to remind patient of next upcoming appointment date, time, location All Clear All Clear All Clear SURVEY INFORMATION Medical/Nurse Forklift Supervisor: Inés Tubbs 1. Your discharge instructions are [...] (Standard Question) No documented in this encounter [facility] 06-29-2022 Note HNO ID: [id number] Author: Joana Tolbert RPh Service: Pharmacy Author [...] Post discharge follow up instruction Joana Tolbert [facility] June 29, 2022 3:32 PM Medication List [...] Your Medications These medications were sent to [facility] [address] [place] [address] Hours: Tuesday-Tuesday, 8am-4:30pm apixaban 5 mg (74 tabs) ascorbic acid (vitamin C) 500 mg tablet bacitracin 500 unit/gram ointment guaiFENesin 600 mg 12 hr tablet HYDROcodone-acetaminophen 5-325 mg per tablet lactobacillus rhamnosus 10 billion cell capsule metoprolol tartrate (short acting) [address] 40 mg tablet sucralfate [address] [facility] 06-29-2022 Note HNO ID: [id number] Author: Kassidy Mejia RN Service: Care Management Author Type: Registered Nurse Type: Care Mgt Progress Note Filed: 06/29/2022 12:39 PM Note Text: CARE MANAGEMENT DISCHARGE NOTE SERVICE DATE: 06/29/2022 SERVICE TIME: 12:38 PM LOS: 13 days Admission Date: 06/16/2022 DISCHARGE ARRANGEMENT (list agency and phone number) Discharge Arrangement: Home with Home Health Provider Name: Arpita Cuellar/Madelaine CAREGIVER ASSESSMENT: Caregiver is ready, willing and able to meet the patient's needs as recommended by the inter-professional team:: Yes Patient's transition needs and plan for meeting these needs: [facility] HANDOFF COMMUNICATION: TRANSPORTATION ARRANGEMENTS: Transportation Arrangements: Car ADDITIONAL CONTACT RESOURCES: [facility]. SIGNATURE: Kassidy Mejia RN PATIENT NAME: Mel Castillo DATE: June 29, 2022 TIME: 12:38 PM PAGER/CONTACT #: [phone] [facility] 06-28-2022 Note HNO ID: [id number] Author: Iwona Chu DO Service: Hospital Medicine Author Type: Physician Type: Progress Notes Filed: 06/28/2022 8:58 PM Note Text: Needs O2 arranged before discharge [facility] 06-28-2022 Note HNO ID: [id number] Author: Irene Han RN Service: Care Management [...] In Person (verbalized understanding) Referral sent to [facility] for home going O2. Awaiting ambulatory pox to be completed. Plan to return home with family support and HHC through [facility]. Family to transport. Will need home O2/HC orders, prior to dc. IMM completed. UPDATE @ 1435: [facility] is outside of the patient's service area. Additional DMR referrals sent to [facility] and [facility]; awaiting response. Will need accepting DMR provider and home O2 delivery, prior to discharge. Oxygen/HC orders in [facility]. SIGNATURE: Irene Han RN PATIENT NAME: Mel Castillo DATE: June 28, 2022 TIME: 1:58 PM PAGER/CONTACT #: [phone] [facility] 06-28-2022 Note HNO ID: [id number] Author: Iwona Chu DO Service: Hospital Medicine [...] micropuncture needle and serially upsized to a 5-Panamanian sheath. A venogram was then performed, which [...] time, the sheath was upsized to an 8-Panamanian sheath. An intravascular ultrasound was performed. This [...] of overt GI (more content not included)... [facility] 06-27-2022 Note HNO ID: [id number] Author: Iwona Chu DO Service: Hospital Medicine [...] micropuncture needle and serially upsized to a 5-Panamanian sheath. A venogram was then performed, which [...] time, the sheath was upsized to an 8-Panamanian sheath. An intravascular ultrasound was performed. This [...] accept for hh (more content not included)... [facility] 06-26-2022 Note HNO ID: [id number] Author: Iwona Chu DO Service: Hospital Medicine [...] micropuncture needle and serially upsized to a 5-Panamanian sheath. A venogram was then performed, which [...] time, the sheath was upsized to an 8-Panamanian sheath. An intravascular ultrasound was performed. This [...] 06/22/22 rec subacute/SNF (more content not included)... [facility] 06-25-2022 Note HNO ID: [id number] Author: Heron Ayers MD Service: Hospital Medicine [...] Route Frequency Last Action Ordered Stop 07/02/22 09 apixaban 5 mg tab(s) (ELIQUIS) (apixaban tab(s) (ELIQUIS)) See Hyperspace for full Linked Orders Report. 5 mg ORAL 2 TIMES DAILY Ordered 06/24/221812 -- 06/25/22 09 apixaban 10 mg tab(s) (ELIQUIS) (apixaban tab(s) (ELIQUIS)) See Hyperspace for full Linked Orders Report. 10 mg ORAL 2 TIMES DAILY Given, 06/25 84106/24/22181207/02/22 0859 06/16/221944 vte current anticoag therapy (il,oh) 06/16/221944 activity - mobilize patient (il,ri) VTE Prophylaxis: VTE prophylaxis appropriate Disposition: Home Plan of care discussed with: Provider, RN, Patient SIGNATURE: Heron Ayers MD PATIENT NAME: Mel Castillo DATE: June 25, 2022 TIME: 12:[id number] [facility] 06-25-2022 Note HNO ID: [id number] Author: Kassidy Mejia RN Service: Care Management [...] 25, 2022 TIME: 11:30 AM PAGER/CONTACT #: [phone] [facility] 06-24-2022 Note HNO ID: [id number] Author: Richie Yi MD Service: General Internal Medicine Author Type: Physician Type: Progress Notes Filed: 06/24/2022 6:34 PM Note Text: DEPARTMENT OF HOSPITAL MEDICINE PROGRESS NOTE SERVICE DATE: 06/23/2022 SERVICE TIME: 7:19 PM Hospital Medicine/Primary Attending: Richie Yi MD NIGHT AND WEEKEND COVERAGE: [place] COVERAGE: After 7pm, please call cross cover pager #[phone] Subjective Patient was seen today. She is [...] Verify, 06/24 1730 06/24/22 1729 06/25/22 0300 06/16/22 194 vte current anticoag therapy ([place], [place]) 06/16/221944 activity - mobilize patient ([place]) VTE Prophylaxis: VTE prophylaxis appropriate Disposition: To be determined Plan of care discussed with: Provider, RN, Patient SIGNATURE: Richie Yi MD PATIENT NAME: Mel Castillo DATE: June 23, 2022 TIME: 7:[id number] [facility] 06-24-2022 Note HNO ID: [id number] Author: SHAQUILLE Kaye Service: Care Management Author Type: Prosthetic Dentist Type: Care Mgt Progress Note Filed: 06/24/2022 [...] 24, 2022 TIME: 1:02 PM PAGER/CONTACT #: [phone] [facility] 06-23-2022 Note HNO ID: [id number] Author: Richie Yi MD Service: General Internal Medicine Author Type: Physician Type: Progress Notes Filed: 06/23/2022 7:28 PM Note Text: DEPARTMENT OF HOSPITAL MEDICINE PROGRESS NOTE SERVICE DATE: 06/23/2022 SERVICE TIME: 7:19 PM Hospital Medicine/Primary Attending: Richie Yi MD NIGHT AND WEEKEND COVERAGE: [place] COVERAGE: After 7pm, please call cross cover pager #[phone] Subjective Patient was seen today. She is [...] Bolus for Subtherapeutic PTTAC) 0-30 mL/hr See [facility] for full Linked Orders Report. 0-3,000 Units/hr INTRAVENOUS CONTINUOUS Rate Verify, 06/23 1617 06/22/22 1028 -- 06/16/221944 vte current anticoag therapy ([place]) 06/16/221944 activity - mobilize patient ([place]) VTE Prophylaxis: VTE prophylaxis appropriate Disposition: To be determined Plan of care discussed with: Provider, RN, Patient SIGNATURE: Richie Yi MD PATIENT NAME: Mel Castillo DATE: June 23, 2022 TIME: 7:[id number] [facility] 06-23-2022 Note HNO ID: [id number] Author: Kassidy Mejia RN Service: Care Management Author Type: Registered Nurse Type: Care Mgt Progress Note Filed: 06/23/2022 4:00 PM Note Text: CARE MANAGEMENT PROGRESS NOTE SERVICE DATE: 06/23/2022 SERVICE TIME: 3:55 PM LOS: 7 days Spoke with pt at the bedside. Discussed SNF placement. Auth obtained for [facility]- pt would be responsible for copay 50% of cost per day for days 1-100. Pt refusing SNF at this time. Pt would like to d/c home with her son and dtr-in-law to ([address] [place] [address]). Pt would agreeable to [facility]- Referrals sent. Pt may need home O2- await ambulatory pulse ox. Family likely able to transport at d/c. CM to follow. SIGNATURE: Kassidy Mejia RN PATIENT NAME: Mel Castillo DATE: June 23, 2022 TIME: 3:53 PM PAGER/CONTACT #: [phone] [facility] 06-22-2022 Note HNO ID: [id number] Author: Dwayne Zaidi MD Service: Hospital Medicine Author Type: Physician Type: Progress Notes Filed: 06/22/2022 6:47 PM Note Text: DEPARTMENT OF HOSPITAL MEDICINE PROGRESS NOTE SERVICE DATE: 06/22/2022 SERVICE TIME: 6:42 PM Hospital Medicine/Primary Attending: Dwayne Zaidi MD NIGHT AND WEEKEND COVERAGE: After 7pm please page [phone] CHIEF COMPLAINT: Follow-up for acute left lower [...] bowel sounds normally heard, no mass palpable MANAGER ETHICS- cranial nerves 2 to 12 grossly intact, [...] injection (PROTONIX) 40 mg INTRAVENOUS BID AC () ascorbic acid (vitamin C) 500 mg tab(s) [...] 0609 06/21/22 0554 06/20/22 1903 06/20/22 0552 06/19/22203206/19/22 0513 06/18/22 0416 06/17/22 0510 06/16/22 0826 [...] TPROT 5.3* -- (more content not included)... [facility] 06-22-2022 Note HNO ID: [id number] Author: Kassidy Mejia RN Service: Care Management Author Type: Registered Nurse Type: Care Mgt Progress Note Filed: 06/22/2022 10:15 AM Note Text: CARE MANAGEMENT PROGRESS NOTE SERVICE DATE: 06/22/2022 SERVICE TIME: 10:15 AM LOS: 6 days IMM Follow Up Copy Given: Yes Copy given to:: Patient Method: In Person (verbal) [facility] is able to accept pt. Precert tasked. Pt will need cot for transport. CM to follow. SIGNATURE: Kassidy Mejia RN PATIENT NAME: Mel Castillo DATE: June 22, 2022 TIME: 10:14 AM PAGER/CONTACT #: [phone] [facility] 06-21-2022 Note HNO ID: [id number] Author: Dwayne Zaidi MD Service: Hospital Medicine Author Type: Physician Type: Progress Notes Filed: 06/21/2022 4:10 PM Note Text: DEPARTMENT OF HOSPITAL MEDICINE PROGRESS NOTE SERVICE DATE: 06/21/2022 SERVICE TIME: 4:04 PM Hospital Medicine/Primary Attending: Dwayne Zaidi MD NIGHT AND WEEKEND COVERAGE: After 7pm please page [phone] CHIEF COMPLAINT: Follow-up for acute left lower [...] bowel sounds normally heard, no mass palpable MANAGER ETHICS- cranial nerves 2 to 12 grossly intact, [...] 0510 06/16/22 034 ALB -- -- -- -- 3.2* TPROT [...] by weight. Has (more content not included)... [facility] 06-21-2022 Note HNO ID: [id number] Author: Kassidy Mejia RN Service: Care Management Author Type: Registered Nurse Type: Care Mgt Progress Note Filed: 06/21/2022 3:44 PM Note Text: CARE MANAGEMENT PROGRESS NOTE SERVICE DATE: 06/21/2022 SERVICE TIME: 3:41 PM LOS: 5 days Spoke with pt at the bedside. Pt states that she lives at home alone. PT/OT rec SNF. Pt would like [facility] referral sent. Await acceptance. Pt will need precert when medically stable. Pt will need cot for transport. Cm to follow. SIGNATURE: Kassidy Mejia RN PATIENT NAME: Mel Castillo DATE: June 21, 2022 TIME: 3:41 PM PAGER/CONTACT #: [phone] [facility] 06-21-2022 Note HNO ID: [id number] Author: Primo Dodd APRN.SHAMIKA Service: Gastroenterology Author Type: Nurse Practitioner Type: Progress Notes Filed: 06/21/2022 3:52 PM Note Text: SERVICE CONSULT PROGRESS NOTE SERVICE DATE: 06/21/2022 SERVICE TIME: 0928 Subjective INTERVAL HPI: GI consulted for GI [...] evaluation given evidence (more content not included)... [facility] 06-20-2022 Note HNO ID: [id number] Author: Acacia Hardin DO Service: General Surgery Author Type: Resident Type: Plan of Care Filed: 06/20/2022 1:40 PM Note Text: Plan of Care Dr. 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 Spoke with Dr. Wilson, highway traffic control technician for Dr. Rodriguez, and she states these [...] kg/m? Acacia Hardin DO 06/20/2022 1:[address] [facility] 06-20-2022 Note HNO ID: [id number] Author: Dwayne Zaidi MD Service: Hospital Medicine Author Type: Physician Type: Progress Notes Filed: 06/20/2022 12:39 PM Note Text: DEPARTMENT OF HOSPITAL MEDICINE PROGRESS NOTE SERVICE DATE: 06/20/2022 SERVICE TIME: 12:35 PM Hospital Medicine/Primary Attending: Dwayne Zaidi MD NIGHT AND WEEKEND COVERAGE: After 7pm please page [phone] CHIEF COMPLAINT: Follow-up for acute left lower [...] bowel sounds normally heard, no mass palpable MANAGER ETHICS- cranial nerves 2 to 12 grossly intact, [...] Lab data: CBC: Recent Labs 06/20/22 0552 06/19/223 06/19/22 0513 06/18/22 0416 06/17/22 0510 06/16/22 [...] 0510 06/16/22 034 ALB -- -- -- -- 3.2* TPROT [...] previous IVC tahmina (more content not included)... [facility] 06-19-2022 Note HNO ID: [id number] Author: Dwayne Zaidi MD Service: Hospital Medicine Author Type: Physician Type: Progress Notes Filed: 06/19/2022 4:33 PM Note Text: DEPARTMENT OF HOSPITAL MEDICINE PROGRESS NOTE SERVICE DATE: 06/19/2022 SERVICE TIME: 4:29 PM Hospital Medicine/Primary Attending: Dwayne Zaidi MD NIGHT AND WEEKEND COVERAGE: After 7pm please page [phone] CHIEF COMPLAINT: Follow-up for acute left lower [...] bowel sounds normally heard, no mass palpable MANAGER ETHICS- cranial nerves 2 to 12 grossly intact, [...] 0513 06/18/22 0416 06/17/22 0510 06/16/22 0826 11/30/22 0341 WBC 8.55 8.77 8.61 10.43 15.82* [...] 11.0 COAG: Recent Labs 06/19/22 1355 06/19/22 0506/18/22 2140 06/18/22 1305 06/18/22 0416 06/17/22 2136 06/17/22 1337 06/17/22 1029 06/16/22 0951 06/16/22 0304 APTT 46.9* 83.8* 37.2* 58.8* 127.7* 48.4* 29.4 125.1* < > 21.7* INR -- -- -- -- -- -- -- -- -- 1.1 < > = values in this interval not displayed. BMP: Recent Labs 06/19/2251206/18/2241506/17/2250906/16/22340 GLUC 115* 112* 84 122* NA 133* 133* 137 139 K 4.4 4.4 4.3 4.4 CHLOR 105 102 107* 104 CO2 23 21* 21* 18* ANION 5* 10 9 17 BUN 22* 25* 27* 35* CREAT 0.94 1.17* 0.99* 1.14* CHEM: Recent Labs 06/19/2251206/18/2241506/17/22 0506/16/22340 ALB -- -- -- 3.2* TPROT [...] stools and andrew (more content not included)... [facility] 06-18-2022 Note HNO ID: [id number] Author: Emanuel Hull MD Service: General Surgery [...] Surgery PGY-3 June 18, 2022 5:[address] [facility] 06-18-2022 Note HNO ID: [id number] Author: Dwayne Zaidi MD Service: Hospital Medicine Author Type: Physician Type: Progress Notes Filed: 06/18/2022 5:37 PM Note Text: DEPARTMENT OF HOSPITAL MEDICINE PROGRESS NOTE SERVICE DATE: 06/18/2022 SERVICE TIME: 5:35 PM Hospital Medicine/Primary Attending: Dwayne Zaidi MD NIGHT AND WEEKEND COVERAGE: After 7pm please page [phone] CHIEF COMPLAINT: Follow-up for acute left lower [...] bowel sounds normally heard, no mass palpable MANAGER ETHICS- cranial nerves 2 to 12 grossly intact, [...] Labs 06/18/22 0416 06/17/22 0510 06/16/22 034 ALB -- -- 3.2* [...] + Bolus for (more content not included)... [facility] 06-18-2022 Note HNO ID: [id number] Author: Kassidy Mejia RN Service: Care Management [...] as pt is COVID +, no answer. VM left for pts POA friend Damaris to help with IA. Per notes await PT/OT evals- no currently order for therapy, MD notified. Cm to follow clinical progress. SIGNATURE: Kassidy Mejia RN PATIENT NAME: Mel Castillo DATE: June 18, 2022 TIME: 3:46 PM PAGER/CONTACT #: [phone] [facility] 06-17-2022 Note HNO ID: [id number] Author: Eliza Parikh RN Service: Nursing Author Type: Registered Nurse Type: Nursing Progress Note Filed: 06/17/2022 7:24 PM Note Text: Pt to 4200 via bed. Pt tolerated well. [facility] 06-17-2022 Note HNO ID: [id number] Author: Eliza Parikh RN Service: Nursing Author Type: Registered Nurse Type: Nursing Progress Note Filed: 06/17/2022 4:35 PM Note Text: Report to [address] [facility] 06-17-2022 Note HNO ID: [id number] Author: Efrain Ivey (Metallurgical Laboratory Assistant) Service: Pharmacy Author Type: Curing Oven Tender Type: Plan of Care Filed: 06/17/2022 2:16 PM Note Text: PHARMACY MEDICATION REVIEW Patient Name: Mel Castillo : 1940 The following medications were updated within the FOUNTAIN ATTENDANT medication list: Medications ADDED to [facility]OUNTAIN ATTENDANT medication list amLODIPine (NORVASC) 10 mg tablet OTHER Yes Yes dexAMETHasone (DECADRON) 4 mg tablet OTHER Yes Yes lisinopril (ZESTRIL, PRINIVIL) 5 mg tablet OTHER Yes Yes RX filled via [facility] [employer] [facility] and verified with pt. herself Medications CHANGED on [facility]OUNTAIN ATTENDANT medication list na Medications REMOVED from FOUNTAIN ATTENDANT medication list na Additional comments: I was able to talk with the pt. about her home medications. She states she takes the 3 RX medications recorded below. These 3 medications were added to her FOUNTAIN ATTENDANT list. She has finished Paxlovid and a physician stopped Augmentin per pt. interview Required follow up for nursing. Medication history completed by Historian. No nursing follow up required. The below information represents the best possible medication history: Yes Medication history completed by: Curing Oven Tender: Efrain Ivey ([employer]) Source of history: Patient: Reliability of source: Appears reliable, clearly identified: Medication name, Medication dose, Medication route, and Medication frequency and Pharmacy records: Epic e-script [facility] Medication nonadherence identified: No barriers noted Reconciliation completed: No, pharmacist not yet reviewed Patient interested in Bedside Delivery Services or using [facility] Pharmacy at discharge? No Preferred outpatient pharmacy: [id number] [place] [address] - [address] [phone] Allergies: Percocet [Oxycodone* Itching Prior to Admission [...] once daily. Facility-Administered Medications: None Efrain Ivey ([employer]) phone [phone] 06/17/2022 [facility] 06-17-2022 Note HNO ID: [id number] Author: Ladan Adame RN Service: Care Management [...] 17, 2022 TIME: 12:37 PM PAGER/CONTACT #: [phone] [facility] 06-17-2022 Note HNO ID: [id number] Author: Eliza Parikh RN Service: Nursing Author Type: Registered Nurse Type: Nursing Progress Note Filed: 06/17/2022 10:40 AM Note Text: Echo at bedside [facility] 06-16-2022 Note HNO ID: [id number] Author: Cirilo Alaniz APRN.LOOM MECHANIC Service: Anesthesiology Author Type: Nurse Tester Waste Disposal Leakage Type: Anesthesia Procedure Notes Filed: 06/16/2022 5:04 PM Note Text: ANESTHESIOLOGY PROCEDURE NOTE Airway General Information Procedure Start Time/Medication Administration: 06/16/2022 4:29 PM Patient location during procedure: OR Timeout Performed Pre-procedure: timeout performed Consent Obtained: Yes Patient identity confirmed: arm band and patient Staffing LOOM MECHANIC: Cirilo Alaniz APRN.LOOM MECHANIC Indications and Patient Condition Indications for airway management: anesthesia Preoxygenated: yes anesthesia circuit Method: asleep Difficult Mask: No Final Airway Details Final airway type: endotracheal airway Final Endotracheal Airway: ETT Cuffed: yes Successful intubation technique: video laryngoscopy Devices used: Freta.lá Endotracheal tube insertion site: oral Blade: Kit Blade size: #3 ETT size (mm): 7.0 Measured from: lips Measurement (cm): 21 Placement verified by: chest auscultation and capnometry Cormack-Lehane Classification: grade I - full view of glottis Number of attempts at approach: 1 Airway not difficult SIGNATURE: Cirilo Alaniz APRN.LOOM MECHANIC PATIENT NAME: Mel Castillo DATE: June 16, 2022 TIME: 5:03 PM CSN: [id number] [facility] 06-16-2022 Note HNO ID: [id number] Author: Jean Pierre Gamboa RPh Service: Pharmacy [...] patient. Signature: Jean Pierre Gamboa tali Pager/Extension: [phone] [facility] 05-17-2022 History of Present illness [...] be seen in the emergency room at [facility] for probable admission for IV antibiotics and airway concern. Patient understands this and will leave shortly. Josiah Barnes MD Findings will be communicated to the referring physician via mail or electronic medical record. documented in this encounter [facility] 05-14-2022 Instructions Jared Velazquez PA-C - [...] Jared Velazquez PA-C documented in this encounter [facility] 05-14-2022 History of Present illness Narrative [...] which included preparing to see the patient, [id number] patient care, completing clinical documentation, performing a medically appropriate examination, counseling and educating the patient/family/caregiver, and ordering medications, tests, or procedures. documented in this encounter 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 Diagnosis Acute bacterial sialadenitis- Primary Bashir's, angina [facility] Diagnosis Localized swelling, mass and lump, neck Swelling, mass, or lump in head and neck documented in this encounter [facility] note* Diagnosis Localized swelling, mass and lump, neck Swelling, mass, or lump in head and neck documented in this encounter [facility] note* Diagnosis Localized swelling, mass and lump, neck- Primary Swelling, mass, or lump in head and neck Localized swelling, mass and lump, neck Swelling, mass, or lump in head and neck documented in this encounter [facility]* Diagnosis Other specified soft tissue disorders [facility] Localized swelling, mass and lump, neck- Primary Swelling, mass, or lump in head and neck Localized swelling, mass and lump, neck Swelling, mass, or lump in head and neck documented in this encounter [facility]* Diagnosis Abnormal findings on diagnostic imaging of other specified body structures Pain in left leg [facility] 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documented in this encounter [facility]* Diagnosis Other specified soft tissue disorders- Primary Other specified soft tissue disorders documented in this encounter [facility]* Diagnosis Abnormal findings on diagnostic imaging of other specified body structures- Primary Pain in left leg Abnormal findings on diagnostic imaging of other specified body structures Pain in left leg documented in this encounter [facility]* Diagnosis Peripheral arterial disease (HCC)- Primary Unspecified peripheral vascular disease Right leg pain Pain in soft tissues of limb Peripheral arterial disease (HCC) Unspecified peripheral vascular disease Right leg weakness Muscle weakness (generalized) Atrial fibrillation, unspecified type (HCC) Ischemic leg Unspecified circulatory system disorder documented in this encounter [facility]* Diagnosis Deep vein thrombosis (DVT) of lower extremity, unspecified chronicity, unspecified laterality, unspecified vein (HCC)- Primary documented in this encounter [facility]* Diagnosis Atrial fibrillation, unspecified type (HCC) Acute venous embolism and thrombosis of deep vessels of proximal end of right lower extremity (HCC) [facility] Diagnosis Acute deep vein thrombosis (DVT) of iliac vein of right lower extremity (HCC)- Primary PAD (peripheral artery disease) (HCC) Unspecified peripheral vascular disease documented in this encounter [facility]* Diagnosis Deep vein thrombosis (DVT) of lower extremity, unspecified chronicity, unspecified laterality, unspecified vein (HCC) Atrial fibrillation, unspecified type (HCC) Acute venous embolism and thrombosis of deep vessels of proximal end of right lower extremity (HCC) [facility] Diagnosis Atrial fibrillation, unspecified type (HCC) Acute venous embolism and thrombosis of deep vessels of proximal end of right lower extremity (HCC) documented in this encounter [facility] note* Diagnosis Atrial fibrillation, unspecified type (HCC) Acute venous embolism and thrombosis of deep vessels of proximal end of right lower extremity (HCC) documented in this encounter [facility] note* Diagnosis Paroxysmal atrial fibrillation (HCC) Atrial fibrillation documented in this encounter [facility] note* Diagnosis Atrial fibrillation, unspecified type (HCC) [...] or 3b CKD (HCC) 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 (HCC) 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 Nicotine use [...] lens, initial encounter [facility] Diagnosis 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 Hemorrhagic choroidal detachment documented in this encounter [facility] note* Diagnosis 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 Hemorrhagic choroidal detachment Dislocation of intraocular lens, initial encounter Hemorrhagic choroidal detachment of right eye Hemorrhagic choroidal detachment documented in this encounter [facility] note* Diagnosis 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 Hemorrhagic choroidal detachment Hemorrhagic choroidal detachment of right eye Hemorrhagic choroidal detachment documented in this encounter [facility] note* Diagnosis Postoperative eye state- Primary Other states following surgery of eye and adnexa Hemorrhagic choroidal detachment of right eye Hemorrhagic choroidal detachment Pseudophakia, right eye Lens replaced by other means Subluxation of right lens Subluxation of lens documented in this encounter [facility] note* Diagnosis Paroxysmal atrial fibrillation (HCC)- Primary [...] Hemorrhagic choroidal detachment [facility] Diagnosis Post-operative state- Primary Other postprocedural status documented in this encounter [facility] note* Diagnosis Postoperative eye state Other states following surgery of eye and adnexa Hemorrhagic choroidal detachment of right eye Hemorrhagic choroidal detachment Pseudophakia, right eye Lens replaced by other means Subluxation of right lens Subluxation of lens documented in this encounter [facility] note* Diagnosis Aspiration pneumonitis (CMS/HCC) (HCC)- Primary Pneumonitis due to inhalation of food or vomitus Aspiration pneumonitis (CMS/HCC) (HCC) Pneumonitis due to inhalation of food or vomitus Vomiting and diarrhea LORENZA (acute kidney injury) (HCC) documented in this encounter [facility] note* Diagnosis Acute deep vein thrombosis (DVT) of iliac vein of right lower extremity (HCC)- Primary PAD (peripheral artery disease) (HCC) Unspecified peripheral vascular disease documented in this encounter [facility] note* Diagnosis Postoperative eye state Other states following surgery of eye and adnexa Hemorrhagic choroidal detachment of right eye Hemorrhagic choroidal detachment Pseudophakia, right eye Lens replaced by other means Subluxation of right lens Subluxation of lens documented in this encounter [facility] note* Diagnosis 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 Hemorrhagic choroidal detachment Right retinal detachment Unspecified retinal detachment Postoperative eye state Other states following surgery of eye and adnexa Pseudophakia, right eye Lens replaced by other means Subluxation of right lens Subluxation of lens documented in this encounter [facility] noteNo assessment information availableWKeenan Private Hospital Work Phone: Evaluation note* Diagnosis PAD (peripheral artery disease) (HCC)- Primary Unspecified peripheral vascular disease Skin ulcer of toe of right foot, limited to breakdown of skin (HCC) documented in this encounter [facility] note* Diagnosis Critical limb ischemia of right lower extremity (HCC)- Primary documented in this encounter [facility] note* Diagnosis Pre-op evaluation- Primary Skin ulcer of right great toe (HCC) Critical limb ischemia of right lower extremity (HCC) [facility] Diagnosis Skin ulcer of toe of right foot, limited to breakdown of skin (HCC)- Primary PAD (peripheral artery disease) (HCC) Unspecified peripheral vascular disease Aftercare following surgery of the circulatory system Aftercare following surgery of the circulatory system, NEC [facility] Diagnosis Skin ulcer of toe of right foot, limited to breakdown of skin (HCC) PAD (peripheral artery disease) (HCC) Unspecified peripheral vascular disease Aftercare following surgery of the circulatory system Aftercare following surgery of the circulatory system, NEC [facility]* Diagnosis Aftercare following surgery of the circulatory system- Primary Aftercare following surgery of the circulatory system, NEC PAD (peripheral artery disease) (HCC) Unspecified peripheral vascular disease [facility] Diagnosis 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 Hemorrhagic choroidal detachment documented in this encounter [facility] note* Diagnosis Right retinal detachment- Primary Unspecified retinal detachment Hemorrhagic choroidal detachment of right eye Hemorrhagic choroidal detachment Pseudophakia, right eye Lens replaced by other means documented in this encounter [facility] for referral (narrative)No reason for referral information availableWKeenan Private Hospital Work Phone: Reason for visit Narrative* Imaging (Routine) - Closed Specialty Diagnoses / Procedures Referred By Elvin leyva Referred To Contact Cardiology Diagnoses Paroxysmal atrial fibrillation (HCC) Procedures Transthoracic echocardiogram (TTE) complete with contrast, bubble, strain, and 3D PRN WV ECHO TTHRC R-T 2D W/WOM-MODE COMPL SPEC&COLR D WV TTE W OR WO FOL WCNICK,Jared De La Garza MD [address] [place] [phone] Phone: tel: fax: Referral ID Status Reason Start Date Expiration Date Visits Re quested Visits Authorized [id number] Closed 04/20/2024 04/20/2025 1 1 [facility] for visit Narrative* Auth/Cert (Routine) Specialty Diagnoses / Procedures Referred By Elvin leyva Referred To Contact Diagnoses Aspiration pneumonitis (CMS/HCC) (HCC) LORENZA (acute kidney injury) (HCC) Vomiting and diarrhea Procedures . Abbi Long DO [address] [place] [address] Phone: tel: fax: [facility] [employer] [facility] [address] [place] [address] Phone: tel: Referral ID Status Reason Start Date Expiration Date Visits Re quested Visits Authorized [id number] 1 1 [facility] [employer] for visit Narrative* Auth/Cert (Routine) Specialty Diagnoses [...] CATH RS&I CHG AORTOGRAPHY ABDOMINAL SERIALOGRAPHY RS&I WV INTRODUCTION CATHETER AORTA WV REVSC OPN/PRG FEM/POP W/ANGIOPLASTY UNI WV REVSC OPN/PRQ TIB/PAMELA W/ANGIOPLASTY UNI WV REVSC OPN/PRQ TIB/PAMELA W/STNT/ANGIOP SM VSL WV REVSC OPN/PRQ FEM/POP W/STNT/ANGIOP SM VSL AORTOILIAC ANGIOGRAPHY, RIGHT LOWER EXTREMITY ANGIOGRAPHY WITH RUNOFF, POSSIBLE SUPERFICIAL FEMORAL ARTERY/POPLITEAL/TIBIAL ANGIOPLASTY/STENTING Kristyn Blankenship MD [address] [address] Phone: tel: fax: [facility] MAIN OR [address] [place] [address] Phone: tel: Referral ID Status Reason Start Date Expiration Date Visits Re quested Visits Authorized [id number] 1 1 [employer] for visit Narrative* Imaging (Routine) - Closed [...] Blankenship MD [address] [place] [address] Phone: tel: fax: [facility] [address] [place] [address] Phone: tel: fax: Referral ID Status Reason Start Date Expiration Date Visits Re quested Visits Authorized [id number] Closed 12/05/2024 12/05/2025 1 1 [facility] Discharge Instructions * Attachments The following attachments cannot be sent through Care Everywhere. * Pulp-Space Infection (Wallisian) documented in this encounter* Instructions* Tiffany Zhu [...] Documents on File Type Date Recorded Patient Gang Mower Operator Expl anation Power of Emotional Disabilities Teacher 04/06/2024 10:04 AM Date Activated Date Inactivated [...] Documents on File Type Date Recorded Patient Gang Mower Operator Expl anation Power of Emotional Disabilities Teacher 04/16/2024 1:26 PM Power of Emotional Disabilities Teacher 04/06/2024 10:04 AM Healthcare Agents on File [...] Documents on File Type Date Recorded Patient Gang Mower Operator Expl anation Power of Emotional Disabilities Teacher 04/16/2024 1:26 PM Power of Emotional Disabilities Teacher 04/06/2024 10:04 AM Date Activated Date Inactivated [...] Documents on File Type Date Recorded Patient Gang Mower Operator Expl anation Advance Directive(s) 06/27/2024 12:58 PM [...] Documents on File Type Date Recorded Patient Gang Mower Operator Expl anation Advance Directive(s) 06/27/2024 12:58 PM [...] Documents on File Type Date Recorded Patient Gang Mower Operator Expl anation DNR (Do Not Resuscitate) 07/13/2024 10:35 AM Power of Emotional Disabilities Teacher 04/16/2024 1:26 PM Power of Emotional Disabilities Teacher 04/06/2024 10:04 AM Date Activated Date Inactivated [...] Documents on File Type Date Recorded Patient Gang Mower Operator Expl anation DNR (Do Not Resuscitate) 07/13/2024 10:35 AM Power of Emotional Disabilities Teacher 04/16/2024 1:26 PM Power of Emotional Disabilities Teacher 04/06/2024 10:04 AM Date Activated Date Inactivated [...] First Alternate Health Care Agent Nadira Castillo Cizthxzz-ow-lby First Alternat e Health Care Agent Healthcare Agents on File Name Relationship Healthcare Agent Relationship Communication Damaris DO NOT CALL-TERMINALLY ILL [place] Friend First Alternate Health Care Agent Nadira Castillo Szvrehns-pc-bmn First Alternat e Health Care Agent Healthcare Agents on File Name Relationship Healthcare Agent Relationship Communication Damaris DO NOT CALL-TERMINALLY ILL [place] Friend First Alternate Health Care Agent Nadira Castillo Votddntv-wd-igl First Alternat e Health Care Agent Date Activated Date Inactivated Comments 08/03/2024 10:17 AM 08/16/2024 4:47 PM Healthcare Agents on File Name Relationship Healthcare Agent Relationship Communication Damaris DO NOT CALL-TERMINALLY ILL [place] Friend First Alternate Health Care Agent Nadira Castillo Vbvgsqjg-fc-cbw First Alternat e Health Care Agent Healthcare Agents on File Name Relationship Healthcare Agent Relationship Communication Damaris DO NOT CALL-TERMINALLY ILL [place] Friend First Alternate Health Care Agent Nadira Castillo Zpkuetnh-lt-yim First Alternat e Health Care Agent Healthcare Agents on File Name Relationship Healthcare Agent Relationship Communication Damaris DO NOT CALL-TERMINALLY ILL [place] Friend First Alternate Health Care Agent Nadira Castillo Qilnrpol-bj-pzc First Alternat e Health Care Agent Summary Purpose Family History No Family History Records FoundNo Family History Records FoundNo Family History Records FoundNo Family History Records FoundNo Family History Records FoundNo Family History Records FoundNo Family History Records Found Reason for Referral Specialty Diagnoses / Procedures Referred By Elvin leyva Referred To Contact Ent - Otolaryngology Diagnoses Salivary gland swelling Procedures CONSULT TO ENT OFFICE/OUTPATIENT [facility] 60-74 MINUTES Jared Velazquez PA-C [address] [place] [address] Referral ID Status Reason Start Date Expiration Date Visits Requested Visits Authorized [id number] Authorized PCP Requested Referral 05/14/2023 1 1 Specialty Diagnoses / Procedures Referred By Elvin leyva Referred To Contact Radiology Diagnoses Localized swelling, mass and lump, neck Procedures CT soft tissue neck w IV contrast Jared Evans MD [address] [place] [phone] Referral ID Status Reason Start Date Expiration Date Visits Re quested Visits Authorized [id number] Closed 03/08/2023 04/07/2023 1 1 Specialty Diagnoses / Procedures Referred By Elvin leyva Referred To Contact Cardiology Diagnoses Other specified soft tissue disorders Procedures Vascular US lower extremity venous duplex left Jared Evans MD [address] [place] [phone] Referral ID Status Reason Start Date Expiration Date V isits Requested Visits Authorized [id number] Pending Review 05/24/2023 05/23/2024 1 1 Specialty Diagnoses / Procedures Referred By Elvin leyva Referred To Contact Radiology Diagnoses Abnormal findings on diagnostic imaging of other specified body structures Pain in left leg Procedures MR tibia fibula left w and wo IV contrast Jared Evans MD [address] [place] [address] Referral ID Status Reason Start Date Expiration Date Visits Re quested Visits Authorized [id number] Closed 06/01/2023 05/31/2024 1 1 Health Concerns Infection Onset Date Last Indicated Resolved Time COVID-19 Confirmed Comment:First positive per [facility] system 06/02/2022. 06/16/2022 06/16/2022 06/19/2022 5:[address] Chief Complaint and Reason for Visit Chief Complaint Admit Date LABWORK August 20, 2024 5 :22am LABWORK September 03, 2024 5:00am RETIREMENT LAB WORK September 03 8:18am RETIREMENT LAB WORK September 10 5:00am Chief Complaint Admit Date LABWORK August 20, 2024 5 :22am LABWORK September 03, 2024 5:00am RETIREMENT LAB WORK September 03 8:18am RETIREMENT LAB WORK September 10 5:00am RETIREMENT LAB WORK September 17, 2024 4: 00am Chief Complaint Admit Date LABWORK August 20, 2024 5 :22am LABWORK September 03, 2024 5:00am RETIREMENT LAB WORK September 03 8:18am RETIREMENT LAB WORK September 10 5:00am RETIREMENT LAB WORK September 17, 2024 4: 00am RETIREMENT LAB WORK October 08, 2024 5 :00am Additional Source Comments Reason for Visit (unrecogniz ed section and content) Reason Comments Post-op (Ophthalmology) Right Eye Specialty Diagnoses / Procedures Referred By Elvin t Referred To Contact HOSP INPATIENT Diagnoses Retinal detachment Acute retinal detachment Retinal detachment Procedures [facility] [address] [place] [address] Referral ID Status Reason Start Date Expiration Date Visits Re quested Visits Authorized [id number] 1 1 Reason Comments Hemorrhagic choroidal detachment [...] gland swelling Procedures CONSULT TO ENT OFFICE/OUTPATIENT [facility] 60-74 MINUTES Jared Velazquez PA-C [address] [place] [address] Referral ID Status Reason Start Date Expiration Date V isits Requested Visits Authorized [id number] Closed PCP Requested Referral 05/14/2022 05/14/2023 1 1 Reason Comments Follow Up Gyant interaction - F/U - attempt made. No answer. Reason Comments Follow Up Phone Call All Clear Specialty Diagnoses / Procedures Referred By Elvin leyva Referred To Contact Radiology Diagnoses Localized swelling, mass and lump, neck Procedures CT soft tissue neck w IV contrast Jared Evans MD [address] [place] [phone] Referral ID Status Reason Start Date Expiration Date Visits Re quested Visits Authorized [id number] Closed 03/08/2023 04/07/2023 1 1 Specialty Diagnoses / Procedures Referred By Elvin leyva Referred To Contact Cardiology Diagnoses Other specified soft tissue disorders Procedures Vascular US lower extremity venous duplex left Jared Evans MD [address] [place] [phone] Referral ID Status Reason Start Date Expiration Date V isits Requested Visits Authorized [id number] Pending Review 05/24/2023 05/23/2024 1 1 Specialty Diagnoses / Procedures Referred By Elvin leyva Referred To Contact Radiology Diagnoses Abnormal findings on diagnostic imaging of other specified body structures Pain in left leg Procedures MR tibia fibula left w and wo IV contrast Jared Evans MD [address] [place] [phone] Referral ID Status Reason Start Date Expiration Date Visits Re quested Visits Authorized [id number] Closed 06/01/2023 05/31/2024 1 1 Reason Comments New Patient Mass left LE Specialty Diagnoses / Procedures Referred By Elvin leyva Referred To Contact Sports Medicine Diagnoses Pain in leg, unspecified Jared Evans MD [address] [place] [phone] [place] [address] Referral ID Status Reason Start Date Expiration Date Visits Re quested Visits Authorized [id number] Closed 07/06/2023 07/05/2024 1 1 Reason Comments Numbness Leg Swelling Specialty Diagnoses / Procedures Referred By Elvin t Referred To Contact Diagnoses Right leg pain Peripheral arterial disease (HCC) Right leg weakness Atrial fibrillation, unspecified type (HCC) Procedures . Pratibha Avelar, [address] [place] [address] [address] Referral ID Status Reason Start Date Expiration Date Visits Re quested Visits Authorized [id number] 1 1 Reason Comments Follow-up 1st follow up RLE me chanical thrombectomy 04/06/24 (Krzysztof) Reason Onset Date Comments Med Refill 04/27/2024 Specialty Diagnoses / Procedures Referred By Elvin leyva Referred To Contact Diagnoses [I63.9] - Cerebral infarction [facility] [address] [place] [address] Referral ID Status Reason Start Date Expiration Date V isits Requested Visits Authorized [id number] New Request 06/20/2024 08/19/2024 Reason Comments Eye Problem Pt reports blurred v ision, dizziness, and headache. LNW 07/04/24 @ 2130. Hx of strokes x 2, HTN, Afib, and right eye retinal detachment. Specialty Diagnoses / Procedures Referred By Elvin t Referred To Contact Diagnoses Retinal detachment, right Vision loss of right eye Procedures . 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 Abbi Long DO [address] [place] [address] Phone: tel: fax: [facility] [employer] [facility] [address] [place] [address] Phone: tel: Referral ID Status Reason Start Date Expiration Date Visits Re quested Visits Authorized [id number] 1 1 Reason Comments Follow-up 3 month follow up, P AD check ([facility]) Reason Comments Post-op (Ophthalmology) Right Eye 1 marisela h Reason Comments Post op OD Reason Comments Follow-up R leg pain with grea t toe wound-PVR and CTA w runoff 03/2024 Reason Comments Follow-up 1st follow up RLE an juliana, possible SFA/pop/tib angioplasty/stenting 11/22/24 Reason Comments 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; 2nd follow up RLE angio, SFA/pop/tib angioplasty/stenting 11/22/24 ([facility] [phone]) Reason Comments Post-op (Ophthalmology) Right Eye Retinal Detachment OD Eye Crusting OD In the mornings INFORMATION SOURCE (unrecogn ized section and content) DATE CREATED AUTHOR 03/13/2020 [facility] DATE CREATED AUTHOR AUTHOR'S ORGANIZ ATION 06/30/2022 [facility] DATE CREATED AUTHOR AUTHOR'S ORGANIZ ATION 07/10/[address] [facility] DATE CREATED AUTHOR AUTHOR'S ORGANIZ ATION 12/14/2024 [facility] DATE CREATED AUTHOR AUTHOR'S ORGANIZ ATION 01/05/2025 [facility] DATE CREATED AUTHOR AUTHOR'S ORGANIZ ATION 01/09/2025 [facility] DATE CREATED AUTHOR AUTHOR'S ORGANIZ ATION 02/03/2025 [facility] Source Comments (unrecognize d section and content) In the event this informatio n is protected by the Federal Confidentiality of Alcohol and Drug Abuse Patient Records regulations: The Federal rules restrict any use of the information to criminally investigate or prosecute any alcohol or drug abuse patient.[facility] Center[facility] the event this information is protected by the Federal Confidentiality of Alcohol and Drug Abuse Patient Records regulations: The Federal rules restrict any use of the information to criminally investigate or prosecute any alcohol or drug abuse patient.[facility] Center[facility] the event this information is protected by the Federal Confidentiality of Alcohol and Drug Abuse Patient Records regulations: The Federal rules restrict any use of the information to criminally investigate or prosecute any alcohol or drug abuse patient.[facility] CenterIn the event this information is protected by the Federal Confidentiality of Alcohol and Drug Abuse Patient Records regulations: The Federal rules restrict any use of the information to criminally investigate or prosecute any alcohol or drug abuse patient.[facility] CenterIn the event this information is protected by the Federal Confidentiality of Alcohol and Drug Abuse Patient Records regulations: The Federal rules restrict any use of the information to criminally investigate or prosecute any alcohol or drug abuse patient.[facility] CenterIn the event this information is protected by the Federal Confidentiality of Alcohol and Drug Abuse Patient Records regulations: The Federal rules restrict any use of the information to criminally investigate or prosecute any alcohol or drug abuse patient.[facility] CenterIn the event this information is protected by the Federal Confidentiality of Alcohol and Drug Abuse Patient Records regulations: The Federal rules restrict any use of the information to criminally investigate or prosecute any alcohol or drug abuse patient.[facility] CenterIn the event this information is protected by the Federal Confidentiality of Alcohol and Drug Abuse Patient Records regulations: The Federal rules restrict any use of the information to criminally investigate or prosecute any alcohol or drug abuse patient.[facility] CenterIn the event this information is protected by the Federal Confidentiality of Alcohol and Drug Abuse Patient Records regulations: The Federal rules restrict any use of the information to criminally investigate or prosecute any alcohol or drug abuse patient.[facility] CenterIn the event this information is protected by the Federal Confidentiality of Alcohol and Drug Abuse Patient Records regulations: The Federal rules restrict any use of the information to criminally investigate or prosecute any alcohol or drug abuse patient.[facility] CenterIn the event this information is protected by the Federal Confidentiality of Alcohol and Drug Abuse Patient Records regulations: The Federal rules restrict any use of the information to criminally investigate or prosecute any alcohol or drug abuse patient.[facility] CenterIn the event this information is protected by the Federal Confidentiality of Alcohol and Drug Abuse Patient Records regulations: The Federal rules restrict any use of the information to criminally investigate or prosecute any alcohol or drug abuse patient.[facility] CenterIn the event this information is protected by the Federal Confidentiality of Alcohol and Drug Abuse Patient Records regulations: The Federal rules restrict any use of the information to criminally investigate or prosecute any alcohol or drug abuse patient.[facility] CenterIn the event this information is protected by the Federal Confidentiality of Alcohol and Drug Abuse Patient Records regulations: The Federal rules restrict any use of the information to criminally investigate or prosecute any alcohol or drug abuse patient.[facility] CenterIn the event this information is protected by the Federal Confidentiality of Alcohol and Drug Abuse Patient Records regulations: The Federal rules restrict any use of the information to criminally investigate or prosecute any alcohol or drug abuse patient.[facility] CenterIn the event this information is protected by the Federal Confidentiality of Alcohol and Drug Abuse Patient Records regulations: The Federal rules restrict any use of the information to criminally investigate or prosecute any alcohol or drug abuse patient.[facility] CenterIn the event this information is protected by the Federal Confidentiality of Alcohol and Drug Abuse Patient Records regulations: The Federal rules restrict any use of the information to criminally investigate or prosecute any alcohol or drug abuse patient.[facility] CenterIn the event this information is protected by the Federal Confidentiality of Alcohol and Drug Abuse Patient Records regulations: The Federal rules restrict any use of the information to criminally investigate or prosecute any alcohol or drug abuse patient.[facility] CenterIn the event this information is protected by the Federal Confidentiality of Alcohol and Drug Abuse Patient Records regulations: The Federal rules restrict any use of the information to criminally investigate or prosecute any alcohol or drug abuse patient.[facility] Care Teams (unrecognized sec tion and content) Podiatry Doctor Relationship Specialty Start Date End Date Pcp, No PCP - General 01/30/22 08/17/22 Podiatry Doctor Relationship Specialty Start Date End Date Pcp, No PCP - General 01/30/22 08/17/22 Podiatry Doctor Relationship Specialty Start Date End Date Jared Evans MD [address] [place] [address] PCP - General Family Medicine 05/18/22 Podiatry Doctor Relationship Specialty Start Date End Date Jared Evans MD [address] [place] [address] PCP - General Family Medicine 05/18/22 Podiatry Doctor Relationship Specialty Start Date End Date Jared Evans MD [address] [place] [address] PCP - General Family Medicine 05/18/22 Podiatry Doctor Relationship Specialty Start Date End Date Jared Evans MD [address] [place] [address] PCP - General 03/06/20 Podiatry Doctor Relationship Specialty Start Date End Date Jared Evans MD [address] [place] [address] PCP - General 03/06/20 Podiatry Doctor Relationship Specialty Start Date End Date Jared Evans MD [address] [place] [address] PCP - General 03/06/20 Podiatry Doctor Relationship Specialty Start Date End Date Jared Evans MD [address] [place] [address] PCP - General 03/06/20 Podiatry Doctor Relationship Specialty Start Date End Date Jared Evans MD [address] [place] [address] PCP - General 03/06/20 Podiatry Doctor Relationship Specialty Start Date End Date Jared Evans MD [address] [place] [address] PCP - General 03/06/20 Podiatry Doctor Relationship Specialty Start Date End Date Jared Evans MD [address] [place] [address] PCP - General 03/06/20 Podiatry Doctor Relationship Specialty Start Date End Date Jared Evans MD [address] [place] [address] PCP - General 03/06/20 Podiatry Doctor Relationship Specialty Start Date End Date Jared Evans MD [address] [place] [address] PCP - General 03/06/20 Podiatry Doctor Relationship Specialty Start Date End Date Jared Evans MD [address] [place] [place] [address] PCP - General 03/06/20 Podiatry Doctor Relationship Specialty Start Date End Date Jared Evans MD [address] [place] [address] PCP - General 03/06/20 Podiatry Doctor Relationship Specialty Start Date End Date Jared Evans MD [address] [place] [address] PCP - General 03/06/20 Podiatry Doctor Relationship Specialty Start Date End Date Jared Evans MD [address] [place] [address] PCP - General 03/06/20 Henok Hernandez PA-C [address] [place] [address] Physician Forklift Supervisor Physician Forklift Supervisor 04/19/24 Podiatry Doctor Relationship Specialty Start Date End Date Jared Evans MD [address] [place] [address] PCP - General 03/06/20 Henok Hernandez PA-C [address] [place] [address] Physician Forklift Supervisor Physician Forklift Supervisor 04/19/24 Podiatry Doctor Relationship Specialty Start Date End Date Jared Evans MD [address] [place] [address] PCP - General 03/06/20 Henok Hernandez PA-C [address] [place] [address] Physician Forklift Supervisor Physician Forklift Supervisor 04/19/24 Podiatry Doctor Relationship Specialty Start Date End Date Jared Evans MD [address] [place] [address] PCP - General 03/06/20 Henok Hernandez PA-C [address] [address] Physician Forklift Supervisor Physician Forklift Supervisor 04/19/24 Podiatry Doctor Relationship Specialty Start Date End Date Jared Evans MD [address] [place] [address] PCP - General 03/06/20 Henok Hernandez PA-C [address] [address] Physician Forklift Supervisor Physician Forklift Supervisor 04/19/24 Podiatry Doctor Relationship Specialty Start Date End Date Jared Evans MD [address] [place] [address] PCP - General 03/06/20 Henok Santizo PA-C [address] [address] Physician Forklift Supervisor Physician Forklift Supervisor 04/19/24 Podiatry Doctor Relationship Specialty Start Date End Date Jared Evans MD [address] [place] [address] PCP - General 03/06/20 Henok Santizo PA-C [address] [address] Physician Forklift Supervisor Physician Forklift Supervisor 04/19/24 Podiatry Doctor Relationship Specialty Start Date End Date Jared Evans MD [address] [place] [address] PCP - General Family Medicine 05/18/22 Podiatry Doctor Relationship Specialty Start Date End Date Jared Evans MD [address] [place] [address] PCP - General Family Medicine 05/18/22 Podiatry Doctor Relationship Specialty Start Date End Date Jared Evans MD [address] [place] [address] PCP - General 03/06/20 Henok Santizo PA-C [address] [address] Physician Forklift Supervisor Physician Forklift Supervisor 04/19/24 Podiatry Doctor Relationship Specialty Start Date End Date Jared Evans MD [address] [place] [address] PCP - General Family Medicine 05/18/22 Podiatry Doctor Relationship Specialty Start Date End Date Jared Evans MD [address] [place] [address] PCP - General Family Medicine 05/18/22 Podiatry Doctor Relationship Specialty Start Date End Date Jared Evans MD [address] [place] [address] PCP - General Family Medicine 05/18/22 Podiatry Doctor Relationship Specialty Start Date End Date Jared Evans MD [address] [place] [address] PCP - General Family Medicine 05/18/22 Podiatry Doctor Relationship Specialty Start Date End Date Jared Evans MD [address] [place] [address] PCP - General Family Medicine 05/18/22 Podiatry Doctor Relationship Specialty Start Date End Date Jared Evans MD [address] [place] [address] PCP - General 03/06/20 eHnok Santizo PA-C [address] [place] [address] Physician Forklift Supervisor Physician Forklift Supervisor 04/19/24 Podiatry Doctor Relationship Specialty Start Date End Date Jared Evans MD [address] [place] [address] PCP - General Family Medicine 05/18/22 Podiatry Doctor Relationship Specialty Start Date End Date Jared Evans MD [address] [place] [address] PCP - General Family Medicine 05/18/22 Podiatry Doctor Relationship Specialty Start Date End Date Jared Evans MD [address] [place] [address] PCP - General Family Medicine 05/18/22 Podiatry Doctor Relationship Specialty Start Date End Date Jared Evans MD [address] [place] [address] PCP - General 03/06/20 Henok Santizo PA-C [address] [address] Physician Forklift Supervisor Physician Forklift Supervisor 04/19/24 Podiatry Doctor Relationship Specialty Start Date End Date Jared Evans MD [facility] [place] [address] PCP - General 03/06/20 Henok Santizo PA-C [address] [address] Physician Forklift Supervisor Physician Forklift Supervisor 04/19/24 Podiatry Doctor Relationship Specialty Start Date End Date Jared Evans MD [facility] [place] [address] PCP - General 03/06/20 Henok Santizo PA-C [address] [address] Physician Forklift Supervisor Physician Forklift Supervisor 04/19/24 [place] [address] Shelter Facility 08/22/24 Podiatry Doctor Relationship Specialty Start Date End Date Jared Evans MD [address] [place] [address] PCP - General Family Medicine 05/18/22 Podiatry Doctor Relationship Specialty Start Date End Date Jared Evans MD [address] [place] [address] PCP - General Family Medicine 05/18/22 Team [...] October 08, 2024 End: October 08, 2024 Podiatry Doctor Relationship Specialty Start Date End Date Jared Evans MD [address] [place] [address] PCP - General 03/06/20 Henok Santizo PA-C [address] [place] [address] Physician Forklift Supervisor Physician Forklift Supervisor 04/19/24 [facility] [address] [facility] [place] [address] Shelter Facility 08/22/24 Podiatry Doctor Relationship Specialty Start Date End Date Jared Evans MD [address] [place] [address] PCP - General 03/06/20 Hneok Santizo PA-C [address] [address] Physician Forklift Supervisor Physician Forklift Supervisor 04/19/24 [facility] [place] [address] [facility] [place] [address] Shelter Facility 08/22/24 Podiatry Doctor Relationship Specialty Start Date End Date Jared Evans MD [address] [place] [address] PCP - General 03/06/20 Henok Santizo PA-C [address] [address] Physician Forklift Supervisor Physician Forklift Supervisor 04/19/24 [facility] [address] [facility] [place] [address] Shelter Facility 08/22/24 Podiatry Doctor Relationship Specialty Start Date End Date Jared Evans MD [address] [place] [address] PCP - General 03/06/20 Henok Santizo PA-C [address] [place] [address] Physician Forklift Supervisor Physician Forklift Supervisor 04/19/24 [facility] [address] [place] [address] Shelter Facility 08/22/24 Podiatry Doctor Relationship Specialty Start Date End Date Jared Evans MD [address] [place] [address] PCP - General 03/06/20 Henok Santizo PA-C [address] [address] Physician Forklift Supervisor Physician Forklift Supervisor 04/19/24 [facility] [address] [place] [address] Shelter Facility 08/22/24 Podiatry Doctor Relationship Specialty Start Date End Date Megan Montoya [address] [place] [phone] PCP - General Internal Medicine 12/13/24 Henok Santizo PA-C [address] [address] Physician Forklift Supervisor Physician Forklift Supervisor 04/19/24 [facility] [address] [place] [address] Shelter Facility 08/22/24 Podiatry Doctor Relationship Specialty Start Date End Date Megan Montoya [address] [facility] [address] [place] [id number] PCP - General Internal Medicine 12/13/24 Henok Santizo PA-C [address] [facility] [address] [place] [address] Physician Forklift Supervisor Physician Forklift Supervisor 04/19/24 Kristyn Blankenship MD [address] [place] [address] Consulting Physician Vascular Surgery 12/24/[address] [address] Shelter Facility 08/22/24 Podiatry Doctor Relationship Specialty Start Date End Date Jared Evans MD [address] [place] [address] PCP - General Family Medicine 05/18/22 Podiatry Doctor Relationship Specialty Start Date End Date Jared Evans MD [address] [place], [place] [address] PCP - General Family Medicine 05/18/22 Scheduled [...] Arin Thomas) 0807 (Given - Provider: Alin Wallis, RADHA) pantoprazole (ProtoNix) EC tablet 40 mg 40 [...] Nichole RN)1914 (New Bag - Provider: Sravanthi Nichole, RADHA)2244 (Rate/Dose Verify - Provider: Norma Davis RN) [...] reversal, respiratory depression, Starting on Tue04/04/24 at 2027, +++ For RR <10, pinpoint pupils, over sedation for opioid reversal - MUST notify highway traffic control technician provider immediately after first dose, may give [...] PRN, moderate pain (4-6), Starting on Maida 24 at 1342 2048 (See Alternative - Provider: Norma Davis RN) 2019 (Given - Provider: Norma Davis RN) oxyCODONE (Roxicodone) immediate release tablet 5 mg(Linked Group 3) 5 mg, Oral, Every 4 hours PRN, severe pain (7-10), Starting on Maida 04/05/24 at 1342 2048 (Given - Provider: Norma Davis RN) 2019 (See Alternative - Provider: Norma Davis RN) polyethylene glycol (PEG) 3350 (Miralax) packet [...] Lopes RN)1447 (Given - Provider: Cecilia Lopes RN)210 (Given - Provider: Luis Murry RN) 0936 (Given - Provider: La Avila RN) dorzolamide (Trusopt) 2 % ophthalmic solution 1 drop 1 drop, Right Eye, 3 times daily, First dose on Tue07/05/24 at 1400 1524 (Given - Provider: Aurea Castellon RN)2028 (Given - Provider: Luis Murry, RADHA) 0907 (Given - Provider: Cecilia Lopes, RADHA)1447 (Given - Provider: Cecilia Lopes RN)2106 (Given - Provider: Luis Murry RN) 0936 (Given - Provider: La Avila, RADHA) enoxaparin (Lovenox) syringe 70 mg 70 mg, SubCUTAneous, Every 12 hours, First dose on Maida 07/05/24 at 1500 1738 (Given - Provider: Cecilia Lopes RN) 0406 (Given - Provider: Luis Murry, RADHA)1443 (Given - Provider: Cecilia Lopes, RADHA) 0349 (Given - Provider: Luis Murry, RADHA) fentaNYL (Sublimaze) injection 25 mcg (COMPLETED) 25 mcg, IntraVENous, Once, On Maida 07/05/24 at 0455, For 1 dose, If oral and IV narcotics ordered, use oral first and only use IV if oral is ineffective or cannot take oral. Do Not give oral and IV within 1 hour of each other unless specifically ordered. 0451 (Given - Provider: Arin Jama, RADHA) hydrALAZINE (Apresoline) injection 10 mg (COMPLETED) 10 mg, IntraVENous, Once, On Maida 07/05/24 at 0520, For 1 dose 0517 (Given - Provider: Arin Jama, RADHA) lisinopril tablet 40 mg 40 mg, Oral, Daily, First dose on Maida 07/05/24 at 1615 1738 (Given - Provider: Cecilia Lopes RN) 0907 (Given - Provider: Cecilia Lopes RN) 0936 (Given - Provider: La Avila, RADHA) metoprolol tartrate (Lopressor) tablet 25 mg 25 mg, Oral, 2 times daily with meals, First dose on Maida 24 at 1700 1738 (Given - Provider: Cecilia Lopes RN) 0907 (Given - Provider: Cecilia Lopes, RADHA)1626 (Given - Provider: Cecilia Lopes, RADHA) 0936 (Given - Provider: La Avila, RADHA) mometasone-formoterol (Dulera 200) 200-5 MCG/ACT inhaler 2 puff 2 puff, Inhalation, 2 times daily, First dose on Maida 07/05/24 at 2000, Rinse mouth with water after use to reduce aftertaste and incidence of candidiasis. Do not swallow. 1999 (Not Given - Provider: Luis Murry RN - Reason: Patient/family refused) 09 (Given - Provider: Cecilia Lopes, RADHA)1999 (Not Given - Provider: Luis Murry RN [...] at 1210 1235 (Given - Provider: Esther Raya, RADHA)1742 (Given - Provider: Cecilia Lopes RN)2029 (Given - Provider: Luis Murry RN) 0000 (Given - Provider: Luis Muryr RN)0406 (Given - Provider: Luis Murry RN)0908 (Given - Provider: Cecilia Lopes, RADHA)1303 (Given - Provider: Cecilia Lopes, RADHA)1627 (Given - Provider: Cecilia Lopes, RADHA)2106 (Given - Provider: Luis Murry, RADHA) 0000 (Given - Provider: Luis Murry, RADHA)0349 (Given - Provider: Luis Murry RN)0936 (Given - Provider: La Avila RN)1200 (Canceled Entry - Provider: Automatic Discharge Provider - Comment: Automatically canceled at discontinue of medication order) sodium chloride 0.9 % bolus 250 mL (COMPLETED) 250 mL, IntraVENous, at 250 mL/hr, Administer over 1 Hours, Once, On Maida 07/05/24 at 0430, For 1 dose 0542 (New Bag - Provider: Arin Jama, RN)0642 (Stopped - Provider: Maritza Armstrong RN) [...] RN) 0914 (Given - Provider: Cecilia Lopes RN)210 (Given - Provider: Luis Murry RN) 0936 (Given - Provider: La Avila, RADHA) tiotropium (Spiriva Respimat) 2.5 MCG/ACT inhaler 2 puff 2 puff, Inhalation, Daily, First dose on Maida 07/05/24 at 1615 1742 (Given - Provider: Cecilia Lopes RN) 0909 (Given - Provider: Cecilia Lopes RN) 0936 (Given - Provider: La Avila RN) Continuous Medication Order 07/05/2024 07/06/2024 07/07/2024 sodium chloride 0.9 % infusion 50 mL/hr, IntraVENous, Continuous, Starting on Maida 07/05/24 at 0430 0645 (New Bag - Provider: Arin Jama, RN)0922 (Rate/Dose Verify - Provider: De Lopez [...] RN) 1217 (See Alternative - Provider: Cecilia Lopes, RADHA)2108 (See Alternative - Provider: Luis Murry, RADHA) 0300 (See Alternative - Provider: Luis Murry [...] Lopes, RADHA)2108 (Given - Provider: Luis Murry, RADHA) 0300 (Given - Provider: Luis Murry, RADHA)0724 (Given - Provider: La Avila, RADHA) iopamidol [...] hours PRN, nausea, vomiting, Starting on Maida 24 at 0523, 1st Line. Give IV if [...] Lopes RN) 1103 (Given - Provider: Cecilia Lopes, RN) polyethylene glycol (PEG) 3350 (Miralax) packet 17 g 17 g, Oral, Daily PRN, constipation, Starting on Maida 07/05/24 at 1324, 1st line for treatment of constipation - give scheduled if no bowel movement in past 24 hours. prochlorperazine (Compazine) injection 5 mg 5 mg, IntraVENous, Every 6 hours PRN, nausea, vomiting, Starting on Maida 07/05/24 at 1444 1700 (Given - Provider: Cecilia Lopes, RADHA) sodium chloride 0.9 % infusion 5-250 mL/hr, [...] Anticoagulant 1014 (Given - Provider: Mp Fallon RN)5 (Given - Provider: Wanda Mendoza RN) 0943 (Given - Provider: Cici Perez RN)214 (Given - Provider: Jessica Bailey RN) 1023 (Given - Provider: Cici Perez RN) atorvastatin (Lipitor) tablet 80 mg 80 mg, Oral, Nightly, First dose on Tue08/03/24 at 2100 2135 (Given - Provider: Wanda Mendoza, RADHA) 214 (Given - Provider: Jessica Bailey RN) atropine [...] BE BASED ON THE PRIMARY CLINICAL RECORDS. [facility]. provides no warranty or guarantee of the accuracy or completeness of information in this document.
[2025-02-04 08:17] LABS: INR Fingerstick 3.6
== END ==
LOC: OLS.SANC 05:00
PROVIDERS: Visit Provider Internal Medicine
DX: Z79.01 Long term (current) use of anticoagulants (principal)
CPT/HCPCS: 36416; 85610

== ENCOUNTER → 2025-02-07 | Outpatient (REF) | payer MEDICARE, SELFPAY ==
[2025-02-07 08:38] LABS: INR Fingerstick 2.2
== END ==
LOC: OLS.SANC 05:00
PROVIDERS: Visit Provider Internal Medicine
DX: Z79.01 Long term (current) use of anticoagulants (principal)
CPT/HCPCS: 36416; 85610

== ENCOUNTER → 2025-02-11 | Outpatient (REF) | payer MEDICARE, SELFPAY ==
[2025-02-11 08:18] LABS: INR Fingerstick 2.5
== END ==
LOC: OLS.SANC 05:00
PROVIDERS: Visit Provider Internal Medicine
DX: Z79.01 Long term (current) use of anticoagulants (principal)
CPT/HCPCS: 36416; 85610

== ENCOUNTER → 2025-02-15 05:00 | Outpatient (REF) | payer MEDICARE, SELFPAY ==
--- OUTSIDE RECORDS SUMMARY | 2025-02-15 04:32 | XMS RPT_ITS ---
[...] Comparison: None. RESULT: Lines, tubes, and devices: patient monitor leads. Hardware noted in the proximal right [...] in both lungs suspicious for multifocal pneumonia. Pathologist: DEVEN Transcribe Date/Time: Jun 17 2022 10:41A Dictated by : DI MINER MD This examination was interpreted and the report reviewed and electronically signed by: DI MINER MD on Jun 17 2022 10:43AM EST [id number] Normal [facility] aPTT PPPon 06-17-2022 aPTT Coag (PPP) [Time] 48.4 s High 23.0-32.4 [facility] Comment on above: Order Comment: Speci men Type: BLOOD SPECIMENOrdering Facility: [facility] Address: [address] [place] [address] Performed By: #### 9 4500-6 #### [facility] CLIA [id number] [address] [place] [address] [place] aPTT Coag (PPP) [Time] 29.4 s Normal 23.0-32.4 [facility] Comment on above: Order Comment: Speci men Type: BLOOD SPECIMENOrdering Facility: [facility] Address: [address] [place] [address] Performed By: #### 3 2355-0 #### [facility] CLIA [id number] [address] [place] [address] [place] aPTT Coag (PPP) [Time] 125.1 s High 23.0-32.4 [facility] Comment on above: Order Comment: Speci men Type: BLOOD SPECIMEN Ordering Facility: [facility] Address: [address] [place] [address] Performed By: #### T SCR #### [facility] CLIA [id number] [address] aPTT Coag (PPP) [Time] s High 23.0-32.4 [facility] Comment on above: Order Comment: Speci men Type: BLOOD SPECIMENOrdering Facility: [facility] Address: [address] [place] [address] Performed By: #### 3 2355-0 #### [facility] CLIA [id number] [address] aPTT Coag (PPP) [Time] 28.5 s Normal 23.0-32.4 [facility] Comment on above: Order Comment: Speci men Type: BLOOD SPECIMENOrdering Facility: [facility] Address: [address] [place] [address] Performed By: #### 1 4979-9 ####[facility]ATORYCLIA [id number] [address] ANES PRE-OPon 06-16-2022 ANES PRE-OP HNO ID: [id number] Author: Olu Winn MD Service: Anesthesiology Author Type: Physician Type: Anesthesia Preprocedure Evaluation Filed: 06/16/2022 5:41 PM Note Text: ANESTHESIOLOGY DAY OF SURGERY NOTE : 1940 Procedure Information Date/Time: 06/16/221539 Procedure: TRANSCATHETER THERAPY VENOUS INFUSION FOR THROMBOLYSIS W/RADIOLOGICAL SUPERVISION/INTERPRETAT ION INITIAL TREATMENT DAY, venogram (Left: Leg lower ) [place] Surgeons: Frida Rodriguez MD Estimated body [...] SIGNATURE: Olu Winn MD PATIENT NAME: Mel Bradford DATE: June 16, 2022 TIME: 3:44 PM CSN: [id number] [facility] BRIEF OP NOTon 06-16-2022 BRIEF OP NOT HNO ID: [id number] Author: Emanuel Hull MD Service: General Surgery [...] BRIEF OPERATIVE / PROCEDURE NOTE LOG ID: [id number] Surgery/Procedure Date: 06/16/2022 Incision/Procedure Start Time: 5:01 PM Incision Close/Procedure End Time: 6:58 PM Surgeon(s)/Proceduralis t(s) and Dross Skimmer(s): Surgeon(s) and Role: * Frida Rodriguez MD [...] and on weekends, please page surgery on-call [phone] (RNF) or [phone] (ICU) SIGNATURE: Emanuel Hull MD PATIENT NAME: Mel Bradford DATE: June 16, 2022 TIME: 7:19 PM PAGER/CONTACT #: [phone] Normal [facility] CBC W Auto Differential pane l (Bld)on 06-16-2022 Anisocytosis Ql (Bld) Present Normal [facility] Comment on above: Order Comment: Speci men Type: BLOOD SPECIMENOrdering Facility: [facility] Address: [address] [place] [address] Performed By: #### 5 7021-8 ####[facility]ORATORYCLIA [id number] [place] [address] [place] Basophils (Bld) [#/Vol] 0.00 10*3/uL Normal <0.11 [facility] Comment on above: Order Comment: Speci men Type: BLOOD SPECIMENOrdering Facility: [facility] Address: [address] [place] [address] Performed By: #### 5 7021-8 ####[facility]ORATORYCLIA [id number] [address] [place] Basophils/100 WBC (Bld) 0.0 % Normal A [facility] Comment on above: Order Comment: Speci men Type: BLOOD SPECIMENOrdering Facility: [facility] Address: [address] [place] [address] Performed By: #### 5 7021-8 ####[facility]ORY[facility] [id number] [address] Differential cell count method Nom (Bld) Manual Normal [facility] Comment on above: Order Comment: Speci men Type: BLOOD SPECIMENOrdering Facility: [facility] Address: [address] [place] [address] Performed By: #### 5 7021-8 ####[facility]ATORYCLIA [id number] [address] Eosinophils (Bld) [#/Vol] 0.00 10*3/uL Normal <0.46 [facility] Comment on above: Order Comment: Speci men Type: BLOOD SPECIMENOrdering Facility: [facility] Address: [address] [place] [address] Performed By: #### 5 7021-8 ####[facility]ATORYCLIA [id number] [address] Eosinophils/100 WBC (Bld) 0.0 % Normal [facility] Comment on above: Order Comment: Speci men Type: BLOOD SPECIMENOrdering Facility: [facility] Address: [address] [place] [address] Performed By: #### 5 7021-8 ####[facility]ATORYCLIA [id number] [address] Erythrocyte distribution width (RBC) [Ratio] 15.6 % High 11.5-15.0 [facility] Comment on above: Order Comment: Speci men Type: BLOOD SPECIMENOrdering Facility: [facility] Address: [address] [place] [address] Performed By: #### 5 7021-8 ####[facility]ORATORYCLIA [id number] [address] [place] Hematocrit (Bld) [Volume fraction] 35.3 % Low 36.0-46.0 [facility] Comment on above: Order Comment: Speci men Type: BLOOD SPECIMENOrdering Facility: [facility] Address: [address] [place] [address] Performed By: #### 5 7021-8 ####[facility]ATORYCLIA [id number] [address] [place] Hemoglobin (Bld) [Mass/Vol] 11.4 g/dL Low 11.5-15.5 [facility] Comment on above: Order Comment: Speci men Type: BLOOD SPECIMENOrdering Facility: [facility] Address: [address] [place] [address] Performed By: #### 5 7021-8 ####[facility]ATORYCLIA [id number] [address] [place] Lymphocytes (Bld) [#/Vol] 1.27 10*3/uL Normal 1.00-4.00 [facility] Comment on above: Order Comment: Speci men Type: BLOOD SPECIMENOrdering Facility: [facility] Address: [address] [place] [address] Performed By: #### 5 7021-8 ####[facility]ATORYCLIA [id number] [address] Lymphocytes/100 WBC (Bld) 8.0 % Normal [facility] Comment on above: Order Comment: Speci men Type: BLOOD SPECIMENOrdering Facility: [facility] Address: [address] [place] [address] Performed By: #### 5 7021-8 ####[facility]ATORYCLIA [id number] [address] [place] MCH (RBC) [Entitic mass] 30.2 pg Normal 26.0-34.0 [facility] Comment on above: Order Comment: Speci men Type: BLOOD SPECIMENOrdering Facility: [facility] Address: [address] [place] [address] Performed By: #### 5 7021-8 ####[facility]ATORYCLIA [id number] [address] [place] MCHC (RBC) [Mass/Vol] 32.3 g/dL Normal 30.5-36.0 [facility] Comment on above: Order Comment: Speci men Type: BLOOD SPECIMENOrdering Facility: [facility] Address: [address] [place] [address] Performed By: #### 5 7021-8 ####[facility]ATORYCLIA [id number] [address] [place] MCV (RBC) [Entitic vol] 93.6 fL Normal 80.0-100.0 [facility] Comment on above: Order Comment: Speci men Type: BLOOD SPECIMENOrdering Facility: [facility] Address: [address] [place] [address] Performed By: #### 5 7021-8 ####[facility]ATORYCLIA [id number] [address] [place] Monocytes (Bld) [#/Vol] 1.74 10*3/uL High <0.87 [facility] Comment on above: Order Comment: Speci men Type: BLOOD SPECIMENOrdering Facility: [facility] Address: [address] [place] [address] Performed By: #### 5 7021-8 ####[facility]ATORYCLIA [id number] [address] Monocytes/100 WBC (Bld) 11.0 % Normal [facility] Comment on above: Order Comment: Speci men Type: BLOOD SPECIMENOrdering Facility: [facility] Address: [address] [place] [address] Performed By: #### 5 7021-8 ####[facility]ATORYCLIA [id number] [address] MYELO% 4.0 % Normal [facility] Comment on above: Order Comment: Speci men Type: BLOOD SPECIMENOrdering Facility: [facility] Address: [address] [place] [address] Performed By: #### 5 7021-8 ####[facility]ATORYCLIA [id number] [address] [place] Neutrophils (Bld) [#/Vol] 12.02 10*3/uL High 1.45-7.50 [facility] Comment on above: Order Comment: Speci men Type: BLOOD SPECIMENOrdering Facility: [facility] Address: [address] [place] [address] Performed By: #### 5 7021-8 ####[facility]ATORYCLIA [id number] [address] STATES [facility] Neutrophils/100 WBC (Bld) 76.0 % Normal [facility] Comment on above: Order Comment: Speci men Type: BLOOD SPECIMENOrdering Facility: [facility] Address: [address] [place] [address] Performed By: #### 5 7021-8 ####[facility]ATORYCLIA [id number] [address] STATES [facility] Nucleated RBC (Bld) [#/Vol] 10*3/uL Normal <0.01 [facility] Comment on above: Order Comment: Speci men Type: BLOOD SPECIMENOrdering Facility: [facility] Address: [address] [place] [address] Performed By: #### 5 7021-8 ####[facility]ATORYCLIA [id number] [address] Nucleated RBC/100 WBC (Bld) [Ratio] 0.0 /100 WBC Normal [facility] Comment on above: Order Comment: Speci men Type: BLOOD SPECIMENOrdering Facility: [facility] Address: [address] [place] [address] Performed By: #### 5 7021-8 ####[facility]ATORYCLIA [id number] [address] Platelet mean volume (Bld) [Entitic vol] 9.7 fL Normal 9.0-12.7 [facility] Comment on above: Order Comment: Speci men Type: BLOOD SPECIMENOrdering Facility: [facility] Address: [address] [address] Performed By: #### 5 7021-8 ####[facility]ORATORYCLIA [id number] [address] Platelets (Bld) [#/Vol] 373 10*3/uL Normal 150-400 [facility] Comment on above: Order Comment: Speci men Type: BLOOD SPECIMENOrdering Facility: [facility] Address: [address] [place] [address] Performed By: #### 5 7021-8 ####[facility]ATORYCLIA [id number] [address] Platelets Estimate (Bld) [#/Vol] Adequate Normal [facility] Comment on above: Order Comment: Speci men Type: BLOOD SPECIMENOrdering Facility: [facility] Address: [address] [place] [address] Performed By: #### 5 7021-8 ####[facility]ORYCLIA [id number] [address] PROMYL% 1.0 % Normal [facility] Comment on above: Order Comment: Speci men Type: BLOOD SPECIMENOrdering Facility: [facility] Address: [address] [place] [address] Performed By: #### 5 7021-8 ####[facility]ATORYCLIA [id number] [address] [place] RBC (Bld) [#/Vol] 3.77 10*6/uL Low 3.90-5.20 [facility] Comment on above: Order Comment: Speci men Type: BLOOD SPECIMENOrdering Facility: [facility] Address: [address] [place] [address] Performed By: #### 5 7021-8 ####[facility]ATORYCLIA [id number] [address] [place] RED CELL MORPH Normal Normal [facility] Comment on above: Order Comment: Speci men Type: BLOOD SPECIMENOrdering Facility: [facility] Address: [address] [place] [address] Performed By: #### 5 7021-8 ####[facility]ORATORYCLIA [id number] [address] SPHEROCYTES Few Normal [facility] Comment on above: Order Comment: Speci men Type: BLOOD SPECIMENOrdering Facility: [facility] Address: [address] [address] Performed By: #### 5 7021-8 ####[facility]ATORYCLIA [id number] [address] [place] WBC (Bld) [#/Vol] 15.82 10*3/uL High 3.70-11.00 [facility] Comment on above: Order Comment: Speci men Type: BLOOD SPECIMENOrdering Facility: [facility] Address: [address] [place] [address] Result Comment: Resu lts checked and verified. Performed By: #### 5 7021-8 ####[facility]ATORYCLIA [id number] [address] CBC panel Auto (Bld)on 06-16 Erythrocyte distribution width (RBC) [Ratio] 15.5 % High 11.5-15.0 [facility] Comment on above: Order Comment: Speci men Type: BLOOD SPECIMENOrdering Facility: [facility] Address: [address] [place] [address] Performed By: #### 5 8410-2 ####[facility]ATORYCLIA [id number] [address] Hematocrit (Bld) [Volume fraction] 30.1 % Low 36.0-46.0 [facility] Comment on above: Order Comment: Speci men Type: BLOOD SPECIMENOrdering Facility: [facility] Address: [address] [place] [address] Performed By: #### 5 8410-2 ####[facility]ORYCLIA [id number] [address] Hemoglobin (Bld) [Mass/Vol] 9.8 g/dL Low 11.5-15.5 [facility] Comment on above: Order Comment: Speci men Type: BLOOD SPECIMENOrdering Facility: [facility] Address: [address] [place] [address] Performed By: #### 5 8410-2 ####[facility]ORYCLIA [id number] [address] MCH (RBC) [Entitic mass] 30.8 pg Normal 26.0-34.0 [facility] Comment on above: Order Comment: Speci men Type: BLOOD SPECIMENOrdering Facility: [facility] Address: [address] [place] [address] Performed By: #### 5 8410-2 ####[facility]ORYCLIA [id number] [address] MCHC (RBC) [Mass/Vol] 32.6 g/dL Normal 30.5-36.0 [facility] Comment on above: Order Comment: Speci men Type: BLOOD SPECIMENOrdering Facility: [facility] Address: [address] [place] [address] Performed By: #### 5 8410-2 ####[facility]ATORYCLIA [id number] [address] MCV (RBC) [Entitic vol] 94.7 fL Normal 80.0-100.0 [facility] Comment on above: Order Comment: Speci men Type: BLOOD SPECIMENOrdering Facility: [facility] Address: [address] [place] [address] Performed By: #### 5 8410-2 ####[facility]ATORYCLIA [id number] [address] Nucleated RBC (Bld) [#/Vol] 0.08 10*3/uL High <0.01 [facility] Comment on above: Order Comment: Speci men Type: BLOOD SPECIMENOrdering Facility: [facility] Address: [address] [address] Performed By: #### 5 8410-2 ####[facility]ATORYCLIA [id number] [address] Platelet mean volume (Bld) [Entitic vol] 9.6 fL Normal 9.0-12.7 [facility] Comment on above: Order Comment: Speci men Type: BLOOD SPECIMENOrdering Facility: [facility] Address: [address] [place] [address] Performed By: #### 5 8410-2 ####[facility]ATORYCLIA [id number] [address] [place] Platelets (Bld) [#/Vol] 277 10*3/uL Normal 150-400 [facility] Comment on above: Order Comment: Speci men Type: BLOOD SPECIMENOrdering Facility: [facility] Address: [address] [place] [address] Performed By: #### 5 8410-2 ####[facility]ATORYCLIA [id number] [address] [place] RBC (Bld) [#/Vol] 3.18 10*6/uL Low 3.90-5.20 [facility] Comment on above: Order Comment: Speci men Type: BLOOD SPECIMENOrdering Facility: [facility] Address: [address] [place] [address] Performed By: #### 5 8410-2 ####[facility]ATORYCLIA [id number] [address] [place] WBC (Bld) [#/Vol] 10.43 10*3/uL Normal 3.70-11.00 [facility] Comment on above: Order Comment: Speci men Type: BLOOD SPECIMENOrdering Facility: [facility] Address: [address] [place] [address] Performed By: #### 5 8410-2 ####[facility]ORATORYCLIA [id number] [address] CONSULTon 06-16-2022 CONSULT HNO ID: [id number] Author: Iman Saldana DO Service: General Surgery [...] HISTORY OF PRESENT ILLNESS: Ms. Jose Alberto Bradford is a 81 year old female with [...] SIGNATURE: Iman Saldana DO PATIENT NAME: Mel Bradford DATE: 06/16/2022 TIME: 4:53 AM PAGER/CONTACT #: below Vascular AND Thoracic Surgery Service Pager: For questions or co (more content not included)... Normal [facility] CTA ABD/PEL/LOWER EXT W IVCO Non 06-16-2022 CTA ABD/PEL/LOWER EXT W IVCON * * *Final Report* * * DATE OF EXAM: Jun 16 2022 7:33AM [facility] 0122 - CTA ABD/PEL/LOWER EXT W [...] lobe consolidation may represent pneumonia or atelectasis. Pathologist: PSCYoan Transcribe Date/Time: Jun 16 2022 7:54A Dictated by : ESTHER MCKEON MD This examination was interpreted and the report reviewed and electronically signed by: ESTHER MCKEON MD on Jun 16 2022 8:22AM EST [id number] Normal [facility] Comprehensive metabolic 2000 panelon 06-16-2022 Albumin [Mass/Vol] 3.2 g/dL Low 3.9-4.9 [facility] Comment on above: Order Comment: Speci men Type: BLOOD SPECIMENOrdering Facility: [facility] Address: [address] [place] [address] Performed By: #### 3 3959-8, 18741-5, 70648-2, 52417-9 ####[facility] LABORATORYCLIA [id number] [address] STATES OF [facility] ALP [Catalytic activity/Vol] 111 U/L Normal 34-123 [facility] Comment on above: Order Comment: Speci men Type: BLOOD SPECIMENOrdering Facility: [facility] Address: [address] [place] [address] Performed By: #### 3 3959-8, 04436-8, 11569-7, 15864-0 ####[facility] LABORATORYCLIA [id number] [address] STATES OF [facility] ALT With P-5'-P [Catalytic activity/Vol] 20 U/L Normal 7-38 [facility] Comment on above: Order Comment: Speci men Type: BLOOD SPECIMENOrdering Facility: [facility] Address: [address] [place] [address] Performed By: #### 3 3959-8, 36288-9, 77953-8, 31332-5 ####[facility] LABORATORYCLIA [id number] [address] STATES OF [facility] Anion gap [Moles/Vol] 17 mmol/L Normal 9-18 [facility] Comment on above: Order Comment: Speci men Type: BLOOD SPECIMENOrdering Facility: [facility] Address: [address] [place] [address] Performed By: #### 3 3959-8, 43186-9, 99851-5, 49960-4 ####[facility]ATORYCLIA [id number] [address] [place] AST With P-5'-P [Catalytic activity/Vol] 13 U/L Normal 13-35 [facility] Comment on above: Order Comment: Speci men Type: BLOOD SPECIMENOrdering Facility: [facility] Address: [address] [place], [place] [address] Performed By: #### 3 3959-8, 22413-5, 04439-0, 61168-9 ####[facility] LABORATORYCLIA [id number] [address] [id number] [place] Bilirubin [Mass/Vol] 0.3 mg/dL Normal 0.2-1.3 [facility] Comment on above: Order Comment: Speci men Type: BLOOD SPECIMENOrdering Facility: [facility] Address: [address] [address] Performed By: #### 3 3959-8, 60943-3, 93545-9, 65557-5 ####[facility]ORATORYCLIA [id number] [address] [id number] [place] Calcium [Mass/Vol] 9.1 mg/dL Normal 8.5-10.2 [facility] Comment on above: Order Comment: Speci men Type: BLOOD SPECIMENOrdering Facility: [facility] Address: [address] [place] [address] Performed By: #### 3 3959-8, 64793-6, 50657-6, 77765-7 ####[facility] LABORATORYCLIA [id number] [place] [address] [place] Chloride [Moles/Vol] 104 mmol/L Normal 97-105 [facility] Comment on above: Order Comment: Speci men Type: BLOOD SPECIMENOrdering Facility: [facility] Address: [address] [address] Performed By: #### 3 3959-8, 56328-3, 77948-0, 31618-4 ####[facility] LABORATORYCLIA [id number] [address] [id number] [place] CO2 [Moles/Vol] 18 mmol/L Low 22-30 [facility] Comment on above: Order Comment: Speci men Type: BLOOD SPECIMENOrdering Facility: [facility] Address: [address] [address] Performed By: #### 3 3959-8, 38837-8, 29643-9, 40011-8 ####[facility] [id number] [place] [address] [place] [facility] Creatinine [Mass/Vol] 1.14 mg/dL High 0.58-0.96 [facility] Comment on above: Order Comment: Rhina mason Type: BLOOD SPECIMENOrdering Facility: [facility] Address: [address] [address] Performed By: #### 3 3959-8, 82950-5, 98443-0, 43810-5 ####[facility] [place] [id number] [place] [address] [place] [facility] ESTIMATED GLOMERULAR FILTRATION RATE 48 mL/min/1.73m??? Low >=60 [facility] [facility] Comment on above: Order Comment: Rhina mason Type: BLOOD SPECIMENOrdering Facility: [facility] Address: [address] [place] [address] Result Comment: Isa mated Glomerular Filtration Rate [...] actual GFR. Performed By: #### 3 3959-8, 02867-9, 93095-8, 54697-0 ####[facility] LABORATORYCLIA [id number] [place] [id number] [place] Glucose [Mass/Vol] 122 mg/dL High 74-99 [facility] Comment on above: Order Comment: Rhina isabella Type: BLOOD SPECIMENOrdering Facility: [facility] Address: [address] [place] [address] Result Comment: The [place] Diabetes Association (ADA) provides guidance for cutoff [...] Standards of Medical Care in Diabetes 2016, [place] Diabetes Association. Diabetes Care. 2016.39(Suppl 1). Performed By: #### 3 3959-8, 93489-0, 64355-5, 60276-7 ####[facility] LABORATORYCLIA [id number] [place] [address] [place] Potassium [Moles/Vol] 4.4 mmol/L Normal 3.7-5.1 [facility] Comment on above: Order Comment: Rhina mason Type: BLOOD SPECIMENOrdering Facility: [facility] Address: [address] [place] [address] Performed By: #### 3 3959-8, 31500-2, 33798-0, 23270-8 ####[facility] [place] [id number] [place] [address] [place] Protein [Mass/Vol] 6.6 g/dL Normal 6.3-8.0 [facility] Comment on above: Order Comment: Rhina mason Type: BLOOD SPECIMENOrdering Facility: [facility] Address: [address] [place] [address] Performed By: #### 3 3959-8, 70171-1, 07365-6, 17944-1 ####[facility] LABORATORYCLIA [id number] [place] [address] [place] Sodium [Moles/Vol] 139 mmol/L Normal 136-144 [facility] Comment on above: Order Comment: Samiri isabella Type: BLOOD SPECIMENOrdering Facility: [facility] Address: [address] [place] [address] Performed By: #### 3 3959-8, 19421-6, 95490-6, 49840-4 ####[facility] LABORATORYCLIA [id number] [place] [id number] [place] Urea nitrogen [Mass/Vol] 35 mg/dL High 7-21 [facility] Comment on above: Order Comment: Speci men Type: BLOOD SPECIMENOrdering Facility: [facility] Address: [place] [address] Performed By: #### 3 3959-8, 52407-1, 80716-3, 11388-3 ####[facility] LABORATORYCLIA [id number] [place] [address] [facility] ED NOTEon 06-16-2022 ED NOTE HNO ID: [id number] Author: Adela Cortez RN Service: Emergency Medicine Author Type: Registered Nurse Type: ED Notes Filed: 06/16/2022 11:27 AM Note Text: Pts aptt is >139. Nongram states to hold dose and let MD know. Vascular resident made aware, MD ordered to hold dose x1 hour and then redraw aptt. Normal [facility] ED NOTE HNO ID: [id number] Author: Nancy Scott RN Service: Emergency Medicine Author Type: Registered Nurse Type: ED Notes Filed: 06/16/2022 7:13 AM Note Text: CT notified that pt has been moved to new room and is ready for testing Normal [facility] ED NOTE HNO ID: [id number] Author: Marleen Blank RN Service: ? Author Type: Registered Nurse Type: ED Notes Filed: 06/16/2022 6:59 AM Note Text: Bed: 19-ED Expected date: Expected time: Means of arrival: Comments: Normal [facility] ED NOTE HNO ID: [id number] Author: Nancy Scott RN Service: Emergency Medicine Author Type: Registered Nurse Type: ED Notes Filed: 06/16/2022 6:44 AM Note Text: CT delayed due to pt needing to move rooms because of bed bugs. Normal [facility] ED NOTE HNO ID: [id number] Author: Nancy Scott RN Service: Emergency Medicine Author Type: Registered Nurse Type: ED Notes Filed: 06/16/2022 3:09 AM Note Text: CT form faxed, ptt sent [facility] ED NOTE HNO ID: [id number] Author: Nancy Scott RN Service: Emergency Medicine Author Type: Registered Nurse Type: ED Notes Filed: 06/16/2022 3:02 AM Note Text: US notified [facility] ED NOTE HNO ID: [id number] Author: Nancy Scott RN Service: Emergency Medicine Author Type: Registered Nurse Type: ED Notes Filed: 06/16/2022 2:48 AM Note Text: CT notified [facility] ED NOTE HNO ID: [id number] Author: Nancy Scott RN Service: Emergency Medicine Author Type: Registered Nurse Type: ED Notes Filed: 06/16/2022 2:43 AM Note Text: Labs sent [facility] ED NOTE HNO ID: [id number] Author: Davian Chen RN Service: ? Author Type: Registered Nurse Type: ED Notes Filed: 06/16/2022 2:06 AM Note Text: Bed: 15-ED Expected date: Expected time: Means of arrival: Comments: carolyn [facility] ED PROV NOTEon 06-16-2022 ED PROV NOTE HNO ID: [id number] Author: Vanessa Trevizo DO Service: Emergency Medicine Author Type: Physician Type: ED Provider Notes Filed: 06/16/2022 11:28 PM Note Text: ED Provider Note Patient Name: Mel Bradford : 1940 SERVICE DATE: 06/16/22 History Patient [...] Resp SpO2 Weight Height 06/16/2221006/16/2221006/16/22 0811 -- 06/16/2221006/16/22 0211 06/16/22 021 -- 91/65 (!) 130 [...] Abnormal; Notable (more content not included)... Normal [facility] ED PROV NOTE HNO ID: [id number] Author: Vanessa Trevizo DO Service: Emergency Medicine [...] note for final disposition and diagnosis. Vanessa TrevizoDO 06/16/22 0323 Normal [facility] EKGon 06-16-2022 Electrocardiogram Ventricular Rate : 1 13 BPM Atrial Rate : 122 BPM QRS Duration : 100 ms Q-T Interval : 282 ms QTC Calculation(Bazett) : 386 ms Calculated R Cherokee : 46 degrees Calculated T Cherokee : -40 degrees ATRIAL FIBRILLATION WITH RAPID VENTRICULAR RESPONSE ABNORMAL QRS-T ANGLE, CONSIDER PRIMARY T WAVE ABNORMALITY ABNORMAL ECG NO PREVIOUS ECGS AVAILABLE Confirmed by MD LEONE CAROL ([id number]) on 06/16/2022 6:43:12 PM NAME : MEL GUADARRAMA PID : [id number] : 1940 Gender : Female Race : ORD : Procedure Date : Jun 16 2022 07:37:07 Edit Date : Jun 16 2022 18:43:17 Diagnosis: ATRIAL FIBRILLATION WITH RAPID VENTRICULAR RESPONSE ABNORMAL QRS-T ANGLE, CONSIDER PRIMARY T WAVE ABNORMALITY ABNORMAL ECG NO PREVIOUS ECGS AVAILABLE Confirmed by MD LEONE CAROL ([id number]) on 06/16/2022 6:43:12 PM Test Reason : Location : 4 : AKED 19 Overread By : MD LEONE CAROL Edited By : MD LEONE CAROL Referred By : , Acquired by : PATRICIA MOE Normal [facility] HIGH SENSITIVITY TROPONIN T (INITIAL)on 06-16-2022 HIGH SENSITIVITY CHRISTOPHER 34 ng/L High <12 [facility] Comment on above: Order Comment: Speci men Type: BLOOD SPECIMENOrdering Facility: [facility] Address: [address] [place] [address] Result Comment: When assessing risk for acute [...] MACE. Performed By: #### 3 2355-0 #### [facility] CLIA [id number] [address] [facility] HIGH SENSITIVITY TROPONIN T (SECOND)on 06-16-2022 HIGH SENSITIVITY CHRISTOPHER 28 ng/L High <12 [facility] Comment on above: Order Comment: Rhina mason Type: BLOOD SPECIMENOrdering Facility: [facility] Address: [address] [place] [address] Result Comment: When assessing risk for acute [...] 30 day MACE. Performed By: #### L [id number] ####[facility] LABORATORYCLIA [id number] [address] [place] HIGH SENSITIVITY TROPONIN T (THIRD) 3 HRS AFTER INITIALon 06-16-2022 HIGH SENSITIVITY CHRISTOPHER 23 ng/L High <12 [facility] Comment on above: Order Comment: Rhina mason Type: BLOOD SPECIMENOrdering Facility: [facility] Address: [address] [place] [address] Result Comment: When assessing risk for acute [...] 30 day MACE. Performed By: #### L [id number] ####[facility] LABORATORYCLIA [id number] [place] [address] [place] HISTORY PHYSICALon HISTORY PHYSICAL HNO ID: [id number] Author: Kristen Jones APRN.CNP Service: Hospital Medicine Author Type: Nurse Practitioner Type: HANDP Filed: 06/16/2022 1:27 PM Note Text: DEPARTMENT OF HOSPITAL MEDICINE HISTORY AND PHYSICAL EXAM SERVICE DATE: 06/16/2022 SERVICE TIME: 12:02 PM Primary Care Physician: Dr. Evans Admitting Provider: Kristen Jones APRN.CNP NIGHT AND WEEKEND COVERAGE: After 7pm, please call cross cover pager #[phone] Subjective CHIEF COMPLAINT: Left leg pain, discoloration [...] note this patient has 2 charts. Mel Jose [phone] and Mel Bradford [id number]. PAST MEDICAL HISTORY Diagnosis Date Acute bacterial [...] chest pain Gastrointestinal: + diarrhea x 1 [employer] Genitourinary: Denies dysuria Musculoskeletal: + left leg [...] or rh (more content not included)... Normal [facility] Magnesium [Mass/Vol] 2.4 mg/dL High 1.7-2.3 [facility] Comment on above: Order Comment: Rhina mason Type: BLOOD SPECIMENOrdering Facility: [facility] Address: [address] [place] [address] Performed By: #### 3 3959-8, 32439-5, 46002-6, 08159-1 ####[facility] LABORATORYCLIA [id number] [address] NT-proBNP [facility] 06-16 Natriuretic peptide.B prohormone N-Terminal [Mass/Vol] 4156 pg/mL High <450 [facility] Comment on above: Order Comment: Rhina mason Type: BLOOD SPECIMEN Ordering Facility: [facility] Address: [address] [place] [address] Performed By: #### T SCR #### [facility] CLIA [id number] [address] OF [facility] NURSING PROGon 06-16-2022 NURSING PROG HNO ID: [id number] Author: Kayden José RN Service: Trauma Author [...] TO THE RECEIVING NURSE. NIKKY FRAGA. Normal [facility] PT panel Coag (PPP)on 2021 INR Coag (PPP) [Relative time] 1.1 {INR} Normal 0.9-1.3 [facility] Comment on above: Order Comment: Rhina mason Type: BLOOD SPECIMENOrdering Facility: [facility] Address: [address] [place] [id number] Result Comment: Mayra min K Antagonist (VKA) Therapeutic Range: INR 2 to 3 (Target INR of 2.5) Note: For patients treated with VKA drugs, such as warfarin, the [place] College [employer]icians 2012 Guideline recommends [...] Chest 2012, 141:7S-47S Daren RA, et al. [facility] 2017, 70: 252-289 Performed By: #### 3 4528-0, 90805-4 ####[facility] LABORATORYCLIA [id number] [place] [address] [place] PT Coag (PPP) [Time] 11.3 s Normal 9.7-13.0 [facility] Comment on above: Order Comment: Rhina mason Type: BLOOD SPECIMENOrdering Facility: [facility] Address: [place] [address] Performed By: #### 3 4528-0, 07579-9 ####[facility] LABORATORYCLIA [id number] [place] [address] [place] Procalcitonin SerPl-mCncon 1 08-16-2021 Procalcitonin [Mass/Vol] 0.19 ng/mL High <0.09 [facility] Comment on above: Order Comment: Speci men Type: BLOOD SPECIMEN Ordering Facility: [facility] Address: [place] [address] Result Comment: For a guided interpretation of test results, please visit the Change in Procalcitonin Calculator, [email or web address]. Performed By: #### T SCR #### [facility] CLIA [id number] [address] SARS-CoV-2 RNA Resp Ql OXANA+p robeon 06-16-2022 SARS-CoV-2 (COVID-19) RNA OXANA+probe Ql (Resp) COVID 19 RESULT: SARS-CoV-2 (Agent of COVID-19) Detected by RT-PCR or equivalent method. This test has been authorized by FDA under an Emergency Use Authorization (EUA). Normal [facility] Comment on above: Performed By: #### 9 4500-6 #### [facility] CLIA [id number] [address] US DVT LOWER LTon 06-16-2022 US DVT [...] Communication: Communicated with Larissa Torres MD on 515 via verbal communication. Pathologist: DEVEN Transcribe Date/Time: Jun 16 2022 5:07A Dictated by : SKIP NOEL MD This examination was interpreted and the report reviewed and electronically signed by: SKIP NOEL MD on Jun 16 2022 5:17AM EST [id number] Normal [facility] aPTT PPPon 06-16-2022 aPTT Coag (PPP) [Time] 74.2 s High 23.0-32.4 [facility] Comment on above: Order Comment: Speci men Type: BLOOD SPECIMENOrdering Facility: [facility] Address: [address] [place] [address] Performed By: #### 1 4979-9 ####[facility] LABORATORYCLIA [id number] [address] OF [facility] aPTT Coag (PPP) [Time] 134.7 s High 23.0-32.4 [facility] Comment on above: Order Comment: Speci men Type: BLOOD SPECIMENOrdering Facility: [facility] Address: [address] [place] [address] Performed By: #### 1 4979-9 ####[facility] LABORATORYCLIA [id number] [address] aPTT Coag (PPP) [Time] s High 23.0-32.4 [facility] Comment on above: Order Comment: Speci isabella Type: BLOOD SPECIMENOrdering Facility: [facility] Address: [address] [place] [address] Performed By: #### 1 4979-9 ####[facility] [place] [id number] [address] [place] aPTT Coag (PPP) [Time] 21.7 s Low 23.0-32.4 [facility] Comment on above: Order Comment: Speci men Type: BLOOD SPECIMENOrdering Facility: [facility] Address: [address] [place] [address] Performed By: #### 3 4528-0, 93694-0 ####[facility] [place] [id number] [address] CULTURE AND STAIN - TISSUEon 03-10-2020 [...] 0.12 S Rifampin(AGATA) <= 0.5 S Normal [facility] Comment on above: Performed By: #### C XTIS #### [place] [address] [place] [address] [facility] [address], [place] [address] #### C/DAMIÁN #### [place] [address] [place] [address] CR Finger(s) Min 2 Views Rig hton 03-07-2020 CR Finger(s) Min 2 Views Right Patient Name: MEL POP Diagnostic Radiology Exam Date/Time 03/06/2020 10:30:00 EDT Exam CR Finger(s) Min 2 Views Right Ordering Physician MD GUSTAVO, JAYLA Stoll Accession Number [id number] CPT4 Codes 30740 () Reason For Exam pain Report Right [...] was communicated to JAYLA MCMAHAN via the [facility] Critical Result system on 03/07/2020 8:07 PM EDT, Message ID [id number]. Report Dictated on Final Dictating Physician: MD PERRY DIANE Signed Date and Time: 03/07/2020 8:07 pm Signed by: MD PERRY DIANE Transcribed Date and Time: 03/07/2020 8:08 Normal [facility] CULTURE ANAEROBEon 0 CULTURE ANAEROBE CULTURE ANAEROBE --> Status: F No growth of anaerobes at 5 days. STAIN GRAM --> Status: F Few polymorphonuclear cells/lpf. No organisms seen. No organisms seen. Normal [facility] Comment on above: Performed By: #### C XTIS #### [facility] [address] [place] [address] [facility] [address], [place] [address] #### C/DAMIÁN #### [facility] [address] [place] [address] Vital Signs Date Time Vital Sign Value Performing Clinician Facility 12-24-2024 14:45-0400 Body mass index (BMI) [Ratio] 27.1 kg/m2 Kristyn Blankenship MD Work Phone: [facility] 12-24-2024 14:45-0400 Body weight 69.4 kg Kristyn Blankensihp MD Work Phone: [facility] 12-05-2024 10:20-0400 Body height 160 cm Kristyn Blankenship MD Work Phone: [facility] 12-05-2024 10:20-0400 Body mass index (BMI) [Ratio] 29.23 kg/m2 Kristyn Blankenship MD Work Phone: [facility] 12-05-2024 10:20-0400 Body weight 74.84 kg Kristyn Blankenship MD Work Phone: [facility] 12-05-2024 10:20-0400 Diastolic blood pressure 78 mm[Hg] Kristyn Blankenship MD Work Phone: [facility] 12-05-2024 10:20-0400 Heart rate 78 /min Kristyn Blankenship MD Work Phone: [facility] 12-05-2024 10:20-0400 Respiratory rate 18 /min Kristyn Blankenship MD Work Phone: [facility] 12-05-2024 10:20-0400 SaO2% (BldA) [Mass fraction] 94 % Kristyn Blankenship MD Work Phone: [facility] 12-05-2024 10:20-0400 Systolic blood pressure 102 mm[Hg] Kristyn Blankenship MD Work Phone: [facility] [employer] 11-22-2024 13:45-0400 Diastolic blood pressure 54 mm[Hg] Kristyn Blankenship MD Work Phone: [facility] [employer] 11-22-2024 13:45-0400 Heart rate 58 /min Kristyn Blankenship MD Work Phone: [facility] [employer] 11-22-2024 13:45-0400 Respiratory rate 18 /min Kristyn Blankenship MD Work Phone: [facility] [employer] 11-22-2024 13:45-0400 SaO2% (BldA) [Mass fraction] 95 % Kristyn Blankenship MD Work Phone: [facility] [employer] 11-22-2024 13:45-0400 Systolic blood pressure 139 mm[Hg] Kristyn Blankenship MD Work Phone: [facility] [employer] 11-22-2024 13:15-0400 Body temperature 97.11 [degF] Kristyn Blankenship MD Work Phone: [facility] [employer] 11-22-2024 08:25-0400 Body height 160 cm Kristyn Blankenship MD Work Phone: [facility] [employer] 11-22-2024 08:25-0400 Body mass index (BMI) [Ratio] 29.23 kg/m2 Kristyn Blankenship MD Work Phone: [facility] [employer] 11-22-2024 08:25-0400 Body weight 74.84 kg Kristyn Blankenship MD Work Phone: [facility] [employer] 11-05-2024 15:42-0400 Body height 160 cm Kristyn Blankenship MD Work Phone: [facility] [employer] 11-05-2024 15:42-0400 Body mass index (BMI) [Ratio] 29.23 kg/m2 Kristyn Blankenship MD Work Phone: [facility] [employer] 11-05-2024 15:42-0400 Body weight 74.84 kg Kristyn Blankenship MD Work Phone: [facility] [employer] 11-05-2024 15:42-0400 Diastolic blood pressure 64 mm[Hg] Kristyn Blankenship MD Work Phone: [facility] [employer] 11-05-2024 15:42-0400 Heart rate 65 /min Kristyn Blankenship MD Work Phone: [facility] [employer] 11-05-2024 15:42-0400 Respiratory rate 18 /min Kristyn Blankenship MD Work Phone: [facility] [employer] 11-05-2024 15:42-0400 SaO2% (BldA) [Mass fraction] 98 % Kristyn Blankenship MD Work Phone: [facility] [employer] 11-05-2024 15:42-0400 Systolic blood pressure 122 mm[Hg] Kristyn Blankenship MD Work Phone: [facility] [employer] 08-22-2024 10:32-0500 Body height 160 cm Henok Rhina PA-C Work Phone: [facility] [employer] 08-22-2024 10:32-0500 Body mass index (BMI) [Ratio] 29.23 kg/m2 Henok Rhina PA-C Work Phone: [facility] [employer] 08-22-2024 10:32-0500 Body weight 74.84 kg Henok Rhina PA-C Work Phone: [facility] [employer] 08-22-2024 10:32-0500 Diastolic blood pressure 62 mm[Hg] Henok Rhina PA-C Work Phone: [facility] [employer] 08-22-2024 10:32-0500 Respiratory rate 18 /min Henok Rhina PA-C Work Phone: [facility] [employer] 08-22-2024 10:32-0500 Systolic blood pressure 104 mm[Hg] Henok Rhina PA-C Work Phone: [facility] [employer] 08-16-2024 07:19-0500 Body temperature 97.59 [degF] Mariana King DO Work Phone: [employer] 08-16-2024 07:19-0500 Diastolic blood pressure 66 mm[Hg] Mariana King DO Work Phone: [employer] 08-16-2024 07:19-0500 Heart rate 85 /min Mariana King DO Work Phone: [employer] 08-16-2024 07:19-0500 Respiratory rate 18 /min Mariana King DO Work Phone: [employer] 08-16-2024 07:19-0500 SaO2% (BldA) [Mass fraction] 94 % Mariana King DO Work Phone: [employer] 08-16-2024 07:19-0500 Systolic blood pressure 135 mm[Hg] Mariana King DO Work Phone: [employer] 08-03-2024 08:32-0500 Body height 162 cm Mariana King DO Work Phone: [employer] 08-03-2024 08:32-0500 Body mass index (BMI) [Ratio] 28.58 kg/m2 Mariana King DO Work Phone: [employer] 08-03-2024 08:32-0500 Body weight 75 kg Mariana King DO Work Phone: [employer] 07-07-2024 06:03-0500 Body temperature 97.7 [degF] Wm Mudrakola DO Work Phone: [employer] 07-07-2024 06:03-0500 Diastolic blood pressure 67 mm[Hg] Wm Mudrakola DO Work Phone: [employer] 07-07-2024 06:03-0500 Heart rate 69 /min Wm Mudrakola DO Work Phone: [employer] 07-07-2024 06:03-0500 Respiratory rate 12 /min Wm Mudrakola DO Work Phone: [employer] 07-07-2024 06:03-0500 SaO2% (BldA) [Mass fraction] 94 % Wm Mudrakola DO Work Phone: [employer] 07-07-2024 06:03-0500 Systolic blood pressure 149 mm[Hg] Wm Kimla DO Work Phone: [facility] [employer] 07-05-2024 10:00-0500 Body height 162.6 cm Wm Nunes DO Work Phone: [facility] [employer] 07-05-2024 10:00-0500 Body mass index (BMI) [Ratio] 27.46 kg/m2 Wm Nunes DO Work Phone: [facility] [employer] 07-05-2024 10:00-0500 Body weight 72.58 kg Wm Nunes DO Work Phone: [facility] [employer] 05-14-2024 15:34-0400 Body height 162.6 cm Jared Evans MD Work Phone: [facility] [employer] 05-14-2024 15:34-0400 Body mass index (BMI) [Ratio] 25.23 kg/m2 Jared Evans MD Work Phone: [facility] [employer] 05-14-2024 15:34-0400 Body weight 66.68 kg Jared Evans MD Work Phone: [facility] [employer] 04-25-2024 13:39-0400 Body height 162.6 cm Henok Hernandez PA-C Work Phone: [facility] [employer] 04-25-2024 13:39-0400 Body mass index (BMI) [Ratio] 25.23 kg/m2 Henok Hernandez PA-C Work Phone: [facility] [employer] 04-25-2024 13:39-0400 Body weight 66.68 kg Henok Hernandez PA-C Work Phone: [facility] [employer] 04-25-2024 13:39-0400 Diastolic blood pressure 66 mm[Hg] Henok Hernandez PA-C Work Phone: [facility] [employer] 04-25-2024 13:39-0400 Heart rate 98 /min Henok Hernandez PA-C Work Phone: [facility] [employer] 04-25-2024 13:39-0400 Respiratory rate 18 /min Henok Hernandez PA-C Work Phone: [employer] 04-25-2024 13:39-0400 SaO2% (BldA) [Mass fraction] 95 % Henok Hernandez PA-C Work Phone: [employer] 04-25-2024 13:39-0400 Systolic blood pressure 110 mm[Hg] Henok Hernandez PA-C Work Phone: [employer] 04-13-2024 08:04-0400 Heart rate 92 /min Uma Cornell DO Work Phone: [employer] 04-13-2024 07:49-0400 Body temperature 97.2 [degF] Uma Huertasffey DO Work Phone: [employer] 04-13-2024 07:49-0400 Diastolic blood pressure 89 mm[Hg] Uma Skiffey DO Work Phone: [employer] 04-13-2024 07:49-0400 Respiratory rate 20 /min Uma Brodericky DO Work Phone: [employer] 04-13-2024 07:49-0400 SaO2% (BldA) [Mass fraction] 98 % Uma Huertasffey DO Work Phone: [employer] 04-13-2024 07:49-0400 Systolic blood pressure 156 mm[Hg] Uma Skiffey DO Work Phone: [employer] 04-03-2024 17:52-0400 Body height 162.6 cm Uma Huertasffey DO Work Phone: [employer] 04-03-2024 17:52-0400 Body mass index (BMI) [Ratio] 27.38 kg/m2 Uma Huertasffey DO Work Phone: [employer] 04-03-2024 17:52-0400 Body weight 72.35 kg Uma Huertasffey DO Work Phone: [employer] 07-27-2023 14:23-0500 Body height 162.6 cm Ming Weinberg MD Work Phone: [employer] 07-27-2023 14:23-0500 Body mass index (BMI) [Ratio] 27.29 kg/m2 Ming Weinberg MD Work Phone: [facility] [employer] 07-27-2023 14:23-0500 Body weight 72.12 kg Ming Weinberg MD Work Phone: [facility] [employer] 05-14-2022 15:01-0400 Diastolic blood pressure 84 mm[Hg] Jared Slabaugh PA-C Work Phone: [facility] 05-14-2022 15:01-0400 Systolic blood pressure 154 mm[Hg] Jared Slabaugh PA-C Work Phone: [facility] 05-14-2022 14:32-0400 Body height 162.6 cm Jared Slabaugh PA-C Work Phone: [facility] 05-14-2022 14:32-0400 Body weight 72.58 kg Jared Slabaugh PA-C Work Phone: [facility] 05-14-2022 14:32-0400 Heart rate 71 /min Jared Slabaugh PA-C Work Phone: [facility] 05-14-2022 14:32-0400 Respiratory rate 16 /min Jared Slabaugh PA-C Work Phone: [facility] 05-14-2022 14:32-0400 SaO2% (BldA) [Mass fraction] 98 % Jared Slabaugh PA-C Work Phone: [facility] 03-07-2020 09:57-0400 Body Temperature 98.71 [degF] AM[place] 03-07-2020 09:57-0400 BP Diastolic 64 mm[Hg] AMT [place] , [place] 03-07-2020 09:57-0400 BP Systolic 161 mm[Hg] AMT [place] , [place] 03-07-2020 09:57-0400 Pulse (Heart Rate) 77 /min AMT [place], [place] 03-07-2020 09:57-0400 Pulse Oximetry 96 % [facility] [place] , [place] 03-07-2020 08:32-0400 Respiratory Rate 14 /min [facility] [place], [place] 02-08-2020 20:50-0400 Body Temperature 97.5 [degF] [facility] [place], [place] 02-08-2020 20:50-0400 BP Diastolic 81 mm[Hg] [facility] [place] , [place] 02-08-2020 20:50-0400 BP Systolic 193 mm[Hg] [facility] [place] , [place] 02-08-2020 20:50-0400 Pulse (Heart Rate) 68 /min [facility] [place], [place] 02-08-2020 20:50-0400 Pulse Oximetry 97 % [facility] [place] , [place] 02-08-2020 20:50-0400 Respiratory Rate 16 /min [facility] [place] Encounters Encounter Date Encounter Type Care Provider Facility Start: 02-11-2025 ambulatory Peter Katsaros OLS Faci lity:[facility] Start: 02-07-2025 ambulatory Peter Katsaros OLS Faci lity:[facility] Start: 02-04-2025 ambulatory Peter Katsaros OLS Faci lity:[facility] Start: 01-31-2025 ambulatory Peter Katsaros OLS Faci lity:[facility] Start: 01-28-2025 ambulatory Peter Katsaros OLS Faci lity:[facility] Start: 01-25-2025 ambulatory Peter Katsaros OLS Faci lity:[facility] Start: 01-23-2025 ambulatory Peter Katsaros OLS Faci lity:[facility] Start: 01-22-2025 ambulatory Peter Katsaros OLS Faci lity:[facility] Start: 01-21-2025 ambulatory Peter Katsaros OLS Faci lity:[facility] Start: 01-17-2025 ambulatory Peter Katsaros OLS Faci lity:[facility] Start: 01-16-2025 ambulatory Megan Katsaros OLS Faci lity:[facility] Start: 01-15-2025 ambulatory Peter Katsaros OLS Faci lity:[facility] Start: 01-07-2025 ambulatory Megan Riverofelipa OLS Faci lity:[facility] Start: 01-02-2025 End: 01-02-2025 Orders Only Namrata Christensen Ophthalmology Comment on above: 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) Right retinal detach ment (Primary Dx); Hemorrhagic choroidal detachment of right eye; Pseudophakia, right eye Start: 12-24-2024 End: 12-24-2024 ambulatory KRISTYN BLANKENSHIP [facility] Start: 12-24-2024 End: 12-24-2024 Office outpatient visit 15 minutes Kristyn Blankenship MD Work Phone: [facility] Comment on above: Aftercare following surgery of the circulatory system (Primary Dx); PAD (peripheral artery disease) (HCC) Start: 12-13-2024 End: 02-12-2025 Follow-up encounter Shivani Rayo CNP Work Phone: [facility] Surgery [place] Comment on above: Vascular US lower ex tremity arterial duplex right with MICHELLE Start: 12-13-2024 End: 12-13-2024 ambulatory MEGAN MONTOYA [facility] Start: 12-13-2024 End: 12-13-2024 Subsequent hospital visit by physician Kristyn Blankenship MD Work Phone: [facility] Vascular Lab Comment on above: Skin ulcer of toe of right foot, limited to breakdown of skin (HCC); PAD (peripheral artery disease) (HCC); Aftercare following surgery of the circulatory system Start: 12-05-2024 End: 12-05-[address] [facility] Start: 12-05-2024 End: 12-05-2024 Office outpatient visit 10 minutes Kristyn Blankenship MD Work Phone: [facility] [place] Comment on above: Skin ulcer of toe of right foot, limited to breakdown of skin (HCC) (Primary Dx); PAD (peripheral artery disease) (HCC); Aftercare following surgery of the circulatory system Start: 11-22-2024 End: 11-22-[address] 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 Start: 11-05-2024 End: 11-05-2024 Office outpatient visit 25 minutes Kristyn Blankenship MD Work Phone: [employer] Comment on above: PAD (peripheral aidee ry disease) (HCC) (Primary Dx); Skin ulcer of toe of right foot, limited to breakdown of skin (HCC) Start: 10-08-2024 End: 10-08-2024 ambulatory Megan EVERETT [facility] Work Phone: Start: 10-08-2024 End: 10-08-2024 Departed Referred Megan Montoya [facility] [employer] Start: 10-08-2024 Registered Referred Megan Montoya [facility] Start: 10-08-2024 End: 10-08-2024 ambulatory Megan EVERETT Facility:[facility] Start: 10-01-2024 End: 10-01-2024 Patient encounter procedure Savana Lopez MD Work Phone: Ophthalmology Comment on above: 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); Right retinal detachment; Postoperative eye state; Pseudophakia, right eye; Subluxation of right lens Start: 10-01-2024 End: 10-01-2024 ambulatory SAVANA ISLASO Facility:[facility] Start: 09-17-2024 End: 09-17-2024 ambulatory Megan EVERETT [facility] Work Phone: Start: 09-17-2024 End: 09-17-2024 Departed Referred Megan BISWAS Start: 09-17-2024 Registered Referred Megan BISWAS Start: 09-17-2024 End: 09-17-2024 ambulatory Megan EVERETT Facility:[facility] Start: 09-10-2024 End: 09-10-2024 ambulatory Megan EVERETT [facility] Work Phone: Start: 09-10-2024 End: 09-10-2024 Departed Referred Megan BISWAS Start: 09-10-2024 Registered Referred Megan BISWAS Start: 09-10-2024 End: 09-10-2024 ambulatory Megan EVERETT Facility:[facility] Start: 09-05-2024 End: 09-05-2024 ambulatory SAVANA LOPEZ Facility:[facility] Start: 09-05-2024 End: 09-05-2024 Patient encounter procedure Savana Lopez MD Work Phone: Ophthalmology Comment on above: Postoperative eye st ate; Hemorrhagic choroidal detachment of right eye; Pseudophakia, right eye; Subluxation of right lens Start: 09-03-2024 End: 09-03-2024 ambulatory Megan EVERETT [facility] Work Phone: Start: 09-03-2024 End: 09-03-2024 Departed Referred Megan BISWAS Start: 09-03-2024 Registered Referred Megan BISWAS Start: 09-03-2024 End: 09-03-2024 ambulatory Megan EVERETT Facility:[facility] Start: 08-22-2024 End: 08-22-[address] [facility] Start: 08-22-2024 End: 08-22-2024 Office outpatient visit 15 minutes Henok Santizo PA-C Work Phone: [facility] - [place] Comment on above: Acute deep vein thro mbosis (DVT) of iliac vein of right lower extremity (HCC) (Primary Dx); PAD (peripheral artery disease) (HCC) Start: 08-20-2024 End: 08-20-2024 ambulatory Megan EVERETT [facility] Work Phone: Start: 08-20-2024 End: 08-20-2024 Departed Referred Megan Luannevictoriano [facility] [employer] Start: 08-20-2024 End: 08-20-2024 ambulatory Megan EVERETT Facility:[facility] Start: 08-03-2024 End: 08-03-2024 Subsequent hospital visit by physician [facility] Exam Room 1 [facility] CT Comment on above: Arrived Start: 08-03-2024 End: 08-16-[address] [facility] Start: 08-03-2024 End: 08-16-2024 Emergency department patient visit Marianasagar King Work Phone: [facility] Comment on above: Aspiration pneumonit is (CMS/HCC) (HCC) (Primary Dx); Vomiting and diarrhea; LORENZA (acute kidney injury) (HCC) Start: 08-01-2024 End: 08-01-2024 ambulatory SAVANA LOPEZ Facility:[facility] Start: 08-01-2024 End: 08-01-2024 Patient encounter [...] state (Primary Dx) Start: 07-27-2024 ambulatory SAVANA LOPEZ Facility: [facility] Start: 07-23-2024 End: 07-23-2024 ambulatory SAVANA LOPEZ Facility:[facility] Start: 07-23-2024 End: 07-23-2024 Patient encounter [...] 07-12-2024 Evaluation and management of inpatient SELF Facility:[facility] Start: 07-12-2024 End: 07-12-2024 Orders Only [...] 07-09-2024 Evaluation and management of inpatient SELF Facility:[facility] Start: 07-09-2024 End: 07-09-2024 Unlisted evaluation [...] Evaluation and management of inpatient RED HENDERSON Facility:[facility] Start: 07-07-2024 Emergency department patient visit PROVIDER NOT IN SYSTEM Facility:[facility] Start: 07-06-2024 End: 07-06-2024 Telephone encounter Jesse Elizondo MD Work Phone: Ophthalmology Start: 07-05-2024 End: 07-07-[address] [facility] Start: 07-05-2024 End: 07-07-2024 Emergency department patient visit Wm Nunes DO Work Phone: [facility] Trauma Neuro Progressive Care Unit PCU 3W Comment on above: Vision loss of right eye (Primary Dx); Acute intractable headache, unspecified headache type; Visual disturbance, subjective Start: 06-19-2024 End: 07-03-2024 ambulatory DEVIKA LEUNG Facility:[facility] Start: 06-19-2024 End: 07-03-2024 Subsequent hospital visit by physician Devika Leung DO Work Phone: [facility] Comment on above: [I63.9] - Cerebral i nfarction Start: 06-10-2024 End: 06-19-2024 Evaluation and management of inpatient ALIYA KEMPGDE Facility:[facility] Start: 05-22-2024 End: 05-22-2024 [facility] Start: 05-21-2024 End: 05-21-2024 [facility] Start: 05-21-2024 End: 05-21-2024 Anticoagulant drug monitoring Harmony Grey [facility] Work Phone: [facility] Anticoagulation Management Service Comment on above: Atrial fibrillation, unspecified type (HCC); Acute venous embolism and thrombosis of deep vessels of proximal end of right lower extremity (HCC) Start: 05-14-2024 End: 05-14-2024 Subsequent hospital visit by physician Jared Evans MD Work Phone: [facility] Non-Invasive Cardiology Comment on above: Paroxysmal atrial fi brillation (HCC) Start: 05-14-2024 End: 05-14-2024 [facility] Start: 05-09-2024 End: 05-09-2024 [facility] Start: 05-09-2024 End: 05-09-2024 Anticoagulant drug monitoring Patty Duggan [facility] Work Phone: [facility]tico[facility] Management [facility] Comment on above: Atrial fibrillation, unspecified type (HCC); Acute venous embolism and thrombosis of deep vessels of proximal end of right lower extremity (HCC) Start: 05-01-2024 End: 05-01-[address] [facility] Start: 05-01-2024 End: 05-01-2024 Anticoagulant drug monitoring Won Tipton RN [facility] Comment on above: Atrial fibrillation, unspecified type (HCC); Acute venous embolism and thrombosis of deep vessels of proximal end of right lower extremity (HCC) Start: 04-27-2024 End: 04-27-2024 Refill Phyllis Aguilera RN Work Phone: [facility]tico[facility] Management Service Comment on above: Deep vein thrombosis (DVT) of lower extremity, unspecified chronicity, unspecified laterality, unspecified vein (HCC); Atrial fibrillation, unspecified type (HCC); Acute venous embolism and thrombosis of deep vessels of proximal end of right lower extremity (HCC) Start: 04-25-2024 End: 04-25-2024 Office outpatient visit 15 minutes Henok Hernandez PA-C Work Phone: [facility] [place] Comment on above: Acute deep vein thro mbosis (DVT) of iliac vein of right lower extremity (HCC) (Primary Dx); PAD (peripheral artery disease) (HCC) Start: 04-25-2024 End: 04-25-2024 ambulatory HENOK SANTIZO [facility] Start: 04-23-2024 End: 04-23-[address] [facility] Start: 04-20-2024 End: 07-20-2024 Transcribe Orders Jared Evans MD Work Phone: [facility] Central Scheduling Comment on above: Paroxysmal atrial fi brillation (HCC) (Primary Dx) Start: 04-19-2024 End: 04-19-[address] [facility] Start: 04-19-2024 End: 04-19-2024 Anticoagulant drug monitoring Marybeth Rahman [facility] Anticoagulation Management Service Comment on above: Atrial fibrillation, unspecified type (HCC); Acute venous embolism and thrombosis of deep vessels of proximal end of right lower extremity (HCC) Start: 04-16-2024 End: 04-16-2024 ambulatory ANTHONY YEE [facility] Start: 04-14-2024 End: 04-14-2024 Anticoagulant drug monitoring Marcelino Orr PharmD [facility] Pharmacy Comment on above: Deep vein thrombosis (DVT) of lower extremity, unspecified chronicity, unspecified laterality, unspecified vein (HCC) (Primary Dx) Start: 04-03-2024 End: 04-13-2024 Evaluation and management of inpatient Uma Cornell DO Work Phone: [facility] Medical Unit 4N Comment on above: Ischemic leg (Primar y Dx); Right leg pain; Peripheral arterial disease (HCC); Right leg weakness; Atrial fibrillation, unspecified type (HCC) Start: 07-27-2023 End: 07-27-2023 Office outpatient new 30 minutes Ming Weinberg MD Work Phone: [facility] Comment on above: 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) Start: 06-15-2023 End: 06-15-2023 Subsequent hospital visit by physician Jared Evans MD Work Phone: [facility] MRI Comment on above: Abnormal findings on diagnostic imaging of other specified body structures; Pain in left leg Start: 06-01-2023 Transcribe Orders Jared Evans MD Work Phone: [facility] Comment on above: Abnormal findings on diagnostic imaging of other specified body structures (Primary Dx); Pain in left leg Start: 05-24-2023 End: 05-24-2023 Subsequent hospital visit by physician Jared Evans MD Work Phone: [facility] Comment on above: Other specified soft tissue disorders Start: 05-23-2023 Transcribe Orders Jared Evans MD Work Phone: [facility] Central Scheduling Comment on above: Other specified soft tissue disorders (Primary Dx) Start: 03-08-2023 End: 03-08-2023 Subsequent hospital visit by physician Jared Evans MD Work Phone: [facility] CT Comment on above: Localized swelling, mass and lump, neck Start: 02-28-2023 Transcribe Orders Jared Evans MD Work Phone: [facility] Comment on above: Localized swelling, mass and lump, neck (Primary Dx) Start: 02-22-2023 End: 02-22-2023 Subsequent hospital visit by physician Jared Evans MD Work Phone: [facility] Comment on above: Localized swelling, mass and lump, neck Start: 02-17-2023 Transcribe Orders Jared Evans MD Work Phone: [facility] Comment on above: Localized swelling, mass and lump, neck (Primary Dx) Start: 07-06-2022 Telephone encounter Inés Tubbs RN NOC Comment on above: Follow Up Phone Call (All Clear) Start: 06-21-2022 End: 06-21-2022 Evaluation and management of inpatient SONNY FRENCH Facility:[facility] Start: 06-19-[facility] [place] [id number] [phone] CARD/HF/PD Start: 06-16-2022 End: 06-29-2022 Evaluation and management of inpatient BERNIE MANE Facility:[facility] Start: 05-27-2022 Telephone encounter Jared pennington MD Work Phone: NOC Comment on above: Follow Up (Gyant int eraction - F/U - attempt made. No answer.) Start: 05-17-2022 End: 05-17-2022 Patient encounter procedure Josiah Barnes MD Work Phone: Otolaryngology Comment on above: Acute bacterial sial adenitis (Primary Dx); Bashir's, angina Start: 05-14-2022 End: 05-14-2022 Patient encounter procedure Jared Velazquez PA-C Work Phone: [facility] Comment on above: Salivary gland swell ing (Primary Dx) Start: 03-07-2020 End: 03-07-2020 Subsequent hospital visit by physician Jayla Mcmahan Work Phone: [facility] Comment on above: S/P surgical amputat ion of finger, right (Primary Dx); Finger osteomyelitis, right (HCC) Start: 03-06-2020 End: 03-06-2020 Subsequent hospital visit by physician Jayla Mcmahan Work Phone: [facility] Start: 02-08-2020 End: 02-08-2020 Emergency department patient visit Maryuri Markhamizzy [facility] ED Comment on above: Felon of finger (Alice uma Dx) Procedures Date Procedure Procedure Detail Performing [...] Work Phone: Start: 09-03-2024 Urine culture Megan Luanne acevedoallison EVERETT Start: 08-22-2024 Follow-up visit Follow-up HENOKSHASHANK HUGHES Start: 08-16-2024 Glucose quantitative blood xcpt reagent strip Devika Escobar MD Work Phone: Start: 08-05-2024 Comprehensive metabo lic panel Shivani Dimas PA-C Work Phone: Start: 08-05-2024 Comprehensive metabo lic panel Shivani Dimas PA-C Work Phone: Start: 08-04-2024 Comprehensive metabo lic panel Shivani Dimas PA-C Work Phone: Start: 08-03-2024 Iadna-dna/rna gi pth gn multiplex probe tq 12-25 Shivani Dimas PA-C Work Phone: Start: 08-03-2024 Basic metabolic pane l calcium total Shivani Dimas PA-C Work Phone: Start: 08-03-2024 Basic metabolic pane [...] End: 07-05-2024 Blood count complete automated Wm Aracelirakola DO Work Phone: Start: 07-02-2024 Blood count complete automated Devika A Alva DO Work Phone: Start: 06-28-2024 Blood count complete automated Devika A Alva DO Work Phone: Start: 06-27-2024 Assay of ferritin Michelle Burk MD Work Phone: Start: 06-25-2024 Blood count complete automated Devika A Alva DO Work Phone: Start: 06-21-2024 Basic metabolic pane l calcium total Devika A Alva DO Work Phone: Start: 06-10-2024 Thyrotropin [Units/v olume] in Serum or Plasma Wm Aracelirakola DO Work Phone: Start: 05-22-2024 Follow-up visit JARED EVANS Start: 05-21-2024 Prothrombin time Histor ical Yobany BROWNE Work Phone: Start: 05-14-2024 Echo tthrc r-t 2d w/wom-mode compl spec&colr d Jared Evans MD Work Phone: Start: 05-09-2024 Prothrombin time Histor horacio Haywood MD Work Phone: Start: 05-01-2024 Prothrombin time Histor horacio Haywood MD Work Phone: Start: 04-25-2024 Follow-up visit JARED EVANS Start: 04-19-2024 Prothrombin time Histor horacio Haywood MD Work Phone: Start: 04-13-2024 Basic metabolic pane l calcium total Robert Mullins MD Work Phone: Start: 04-12-2024 Basic metabolic pane l calcium total Robert Mullins MD Work Phone: Start: 04-11-2024 Thromboplastin time partial plasma/whole blood Jordin Roldan MD Work Phone: Start: 04-11-2024 Basic metabolic pane l calcium total Robert Mullins MD Work Phone: Start: 04-10-2024 Thromboplastin time partial plasma/whole blood Andriy Avelar DO Work Phone: Start: 04-10-2024 Basic metabolic pane l calcium total Robert Mullins MD Work Phone: Start: 04-09-2024 Thromboplastin time partial plasma/whole blood Andriy Avelar DO Work Phone: Start: 04-09-2024 Radiologic exam ches t single view Robert Mullins MD Work Phone: Start: 04-09-2024 Thromboplastin time partial plasma/whole blood Andriy Avelar DO Work Phone: Start: 04-09-2024 Basic metabolic pane l calcium total Robert Mullins MD Work Phone: Start: 04-08-2024 Thromboplastin time partial plasma/whole blood Andriy Avelar DO Work Phone: Start: 04-08-2024 Thromboplastin time partial plasma/whole blood Andriy Avelar DO Work Phone: Start: 04-08-2024 Basic metabolic pane l calcium total Robert Mullins MD Work Phone: Start: 04-07-2024 Thromboplastin time partial plasma/whole blood Andriy Avelar DO Work Phone: Start: 04-07-2024 Basic metabolic pane l calcium total Robert Mullins MD Work Phone: Start: 04-06-2024 Thromboplastin time partial plasma/whole blood Andriy Avelar DO Work Phone: Start: 04-06-2024 FL GUIDANCE OR USE O NLY - NON-RESULTABLE Kristyn Blankenship MD Work Phone: Start: 04-06-2024 Antibody screen JARED EVANS Comment on above: Performed By: #### L [id number] ####Utility Operator: VELMA VALADEZ ([id number])[facility] ([facility])[address] [place] [address] Start: 04-06-2024 Blood typing serologic abo Kristyn Blankenship MD Work Phone: Start: 04-06-2024 End: 04-06-2024 Prq transluminal mechanical thrombectomy vein Kristyn Blankenship MD Work Phone: Start: 04-06-2024 Basic metabolic pane l calcium total Robert Mullnis MD Work Phone: Start: 04-05-2024 Prothrombin time Jesse Valdez MD Work Phone: Start: 04-05-2024 Thromboplastin time partial plasma/whole blood Andriy Avelar DO Work Phone: Start: 04-05-2024 End: 04-05-2024 Basic metabolic panel calcium total Robert Mullins MD Work Phone: Start: 04-04-2024 Thromboplastin time partial plasma/whole blood Andriy Avelar DO Work Phone: Start: 04-04-2024 Thromboplastin time partial plasma/whole blood Andriy Avelar DO Work Phone: Start: 04-04-2024 Non-invasive physiol ogic study extremity 3 levls Selene Naik MD Work Phone: Start: 04-04-2024 Dup-scan xtr veins c omplete bilateral study Andriy Avelar DO Work Phone: Start: 04-04-2024 Basic metabolic pane l calcium total Andriy Avelar DO Work Phone: Start: 04-04-2024 Thromboplastin time partial plasma/whole blood Andriy Avelar DO Work Phone: Start: 04-03-2024 Thromboplastin time partial plasma/whole blood Andriy Avelar DO Work Phone: Start: 04-03-2024 Cta abdl aorta&bi il iofem w/contrast&postp Bernie Patrizia ORTHODONTIST VICE PRESIDENT - WELL SURVEYING ENGINEER Work Phone: Start: 04-03-2024 Ct head/brain w/o co ntrast material Bernie Patrizia ORTHODONTIST VICE PRESIDENT - WELL SURVEYING ENGINEER Work Phone: Start: 04-03-2024 Comprehensive metabo lic panel Bernie Cutler ORTHODONTIST VICE PRESIDENT - WELL SURVEYING ENGINEER Work Phone: Start: 04-03-2024 Ecg routine ecg w/le ast 12 lds trcg only w/o i&r Bernie Cutler ORTHODONTIST VICE PRESIDENT - WELL SURVEYING ENGINEER Work Phone: Start: 06-15-2023 Mri lower extrem oth /thn jt w/o & w/contr matr Jared Evans MD Work Phone: Start: 05-24-2023 Dup-scan xtr veins unilateral/limited study Jared Evans MD Work Phone: Start: 06-21-2022 Antibody screen BERNIE MANE Comment on above: Order Comment: Speci men Type: BLOOD SPECIMEN Ordering Facility: [facility] Address: [address] [place] [address] Performed By: #### T SCR #### [facility] CLIA [id number] [address] [place] [id number] [place] Start: 03-07-2020 OPERATIVE REPORT 3m Sca nning Start: 02-08-2020 INCISION AND DRAINAGE R mona Mora Work Phone: Plan of Treatment Date Care Activity Detail Author Start: 02-15-2029 DTaP/Tdap/Td vaccine (2 - Td) DTaP/Tdap/Td vaccine (2 - Td) [place] Start: 02-15-2029 DTaP/Tdap/Td Vaccines (2 - Td or Tdap) DTaP/Tdap/Td Vaccines (2 - Td or Tdap) [facility] Start: 02-15-2029 Urine microalbumin profile DTaP,Tdap,Td Vaccine (2 - Td or Tdap) [facility] Start: 08-05-2027 Diabetes Screening Diabetes Screening [facility] Start: 07-07-2027 Diabetes Screening Diabetes Screening [facility] Start: 07-06-2027 Diabetes Screening Diabetes Screening [facility] Start: 06-21-2027 Diabetes Screening Diabetes Screening [facility] Start: 08-16-2025 End: 01-23-2026 OCT MACULA CIRRUS OD (RIGHT EYE) OCT MACULA CIRRUS OD (RIGHT EYE) [facility] Imaging Routine Postoperative eye state 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, right eye Subluxation of right lens Expected: 08/16/2025, Expires: 01/23/2026 [facility] Work Phone: Comment on above: Expected: 08/16/2025, Expires: Start: 08-05-2025 Diabetes: Estimated Glomerular Filtration Rate for Kidney Health Diabetes: Estimated Glomerular Filtration Rate for Kidney Health [facility] Start: 08-04-2025 Diabetes: Estimated Glomerular Filtration Rate for Kidney Health Diabetes: Estimated Glomerular Filtration Rate for Kidney Health [facility] Start: 07-31-2025 End: 01-07-2026 Right eye Photo documentation FUNDUS PHOTOS OD (RIGHT EYE) [facility] Imaging Routine Postoperative eye state 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, right eye Subluxation of right lens Expected: 07/31/2025, Expires: 01/07/2026 [facility] Work Phone: Comment on above: Expected: 07/31/2025, Expires: Start: 07-07-2025 Diabetes: Estimated Glomerular Filtration Rate for Kidney Health Diabetes: Estimated Glomerular Filtration Rate for Kidney Health [facility] Start: 06-24-2025 DIABETES SCREEN DIABETES SCREEN [facility] Start: 06-10-2025 Thyroid stimulating hormone measurement TSH Level [facility] Start: 05-18-2025 DIABETES SCREEN DIABETES SCREEN [facility] Start: 03-18-2025 Influenza vaccination [facility] Start: 03-15-2025 End: 03-15-2025 Patient encounter procedure 03/15/2025 11:15 AM EDT Office Visit [facility] [address] [place] [phone] Andre Patel MD [address] [place] [address] [facility] Start: 01-02-2025 End: 01-02-2025 Patient encounter procedure 01/02/2025 9:45 AM EDT Office Visit [facility]mology [address] [place] [address] Savana Lopez MD [address] [place], [place] [phone] *3 M, DFE Ophthalmology Comment on above: *3 M, DFE Start: 12-24-2024 End: 12-24-2024 Patient encounter procedure 12/24/2024 2:30 PM EDT Office Visit [facility] [address] [place] [phone] Kristyn Blankenship MD [address] [place] [address] [facility] Start: 12-05-2024 End: 12-05-2024 Patient encounter procedure 12/05/2024 10:00 AM EDT Office Visit [facility] [place] [address] [place] [phone] Kristyn Blankenship MD [address] [place] [phone] [facility] [place] Start: 11-22-2024 End: 11-22-2024 Admission to same day surgery center 11/22/2024 9:30 AM EDT - 11/22/2024 11:30 AM EDT Surgery [facility] MA[facility] OR [address] [place] [address] Kristyn Blankenship MD [address] [place] [address] [phone] AORTOILIAC ANGIOGRAPHY, RIGHT LOWER EXTREMITY ANGIOGRAPHY WITH RUNOFF, POSSIBLE SUPERFICIAL FEMORAL ARTERY/POPLITEAL/TIBIAL ANGIOPLASTY/STENTING [43091 (CPT )] [facility] MAIN OR Comment on above: AORTOILIAC ANGIOGRAPHY, RIGHT LOWER EXTR EMITY ANGIOGRAPHY WITH RUNOFF, POSSIBLE SUPERFICIAL FEMORAL ARTERY/POPLITEAL/TIBIAL ANGIOPLASTY/STENTING [39137 (CPT )] Start: 11-22-2024 End: 11-22-2024 Angiography extremity unilateral rs&i ANGIOGRAM, EXTREMITY Skin ulcer of right great toe (HCC) Critical limb ischemia of right lower extremity (HCC) 11/22/2024 9:30 AM EDT [facility] Operating Room Start: 11-22-2024 Subsequent hospital visit by physician 11/22/2024 9:30 AM EDT Hospital Encounter [facility] [address] [place] [address] Kristyn Blankenship MD [address] [place] [phone] [facility] Start: 11-20-2024 Subsequent hospital visit by physician 11/20/2024 Hospital Encounter [facility] [address] [place] [address] Kristyn Blankenship MD [address] [place] [phone] [facility] Start: 11-13-2024 End: 11-13-2025 Basic metabolic 1998 panel - Serum or Plasma Basic metabolic panel Lab Routine Pre-op evaluation Expected: 11/13/2024 (Approximate), Expires: 11/13/2025 [facility] Comment on above: Expected: 11/13/2024 (Approximate), Expi res: 11/13/2025 Start: 11-13-2024 End: 11-13-2025 CBC W Auto Differential panel - Blood CBC auto differential Lab Routine Pre-op evaluation Expected: 11/13/2024 (Approximate), Expires: 11/13/2025 [facility] Work Phone: Comment on above: Expected: 11/13/2024 (Approximate), Expi res: 11/13/2025 Start: 10-01-2024 End: 10-01-2024 Patient encounter procedure 10/01/2024 10:30 AM EDT Office Visit [facility]hthalmology [address] [address] Savana Lopez MD [address] [place], [place] [phone] 26 Day F/U ~ DFE OD bscan OD . Ophthalmology Comment on above: 26 Day F/U ~ DFE OD bscan OD . Start: 08-22-2024 End: 08-22-2024 Patient encounter procedure 08/22/2024 10:30 AM EST Office Visit [facility] [place] [address] [place] [phone] Henok Santizo PA-C [address] [place] [address] [facility] [place] Start: 08-15-2024 End: 08-15-2024 Patient encounter procedure 08/15/2024 9:45 AM EST Office Visit [facility] [address] [place] [address] Savana Lopez MD [address] [place], [place] [phone] *1 month post op Ophthalmology Comment on above: *1 month post op Start: 08-06-2024 End: 08-06-2024 Patient encounter procedure 08/06/2024 11:00 AM EST Office Visit [facility] [place] [address] [place] [phone] Henok Santizo PA-C [address] [place], [place] [phone] [facility] [place] Start: 08-01-2024 End: 08-01-2024 Patient encounter procedure Ophthalmology Comment on above: *1 week post op Start: 07-31-2024 End: 07-31-2024 Patient encounter procedure [facility] Surgery [facility] Start: 07-27-2024 End: 07-27-2024 Admission to same day surgery center 07/27/2024 10:50 AM EST - 07/27/2024 12:40 PM EST Surgery Ophthalmology [address] [address] Svaana Lopez MD [address] [place] [address] VITRECTOMY 25G [facility] PARS PLANA APPROACH W/ REMOVAL OF PRERETINAL CELLULAR MEMBRANE Ophthalmology Comment on above: [facility] W/ REMOVAL OF PRERETINAL CELLULAR MEMBRANE Start: 07-27-2024 End: 07-27-2024 Aspiration/release vitreous subretinal/choroidal RELEASE OF VITREOUS, CHOROIDAL FLUID, PARS PLANA APPROACH Hemorrhagic choroidal detachment of right eye 07/27/2024 10:50 AM EST [facility] Start: 07-27-2024 Subsequent hospital visit by physician 07/27/2024 10:50 AM EST Hospital Encounter Ophthalmology [address] [address] Savana Lopez MD [address] [place] [address] 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] Ophthalmology Comment on above: Hemorrhagic choroidal detachment of righ t eye [H31.411] Start: 07-27-2024 End: 07-27-2024 Vitrectomy pars plana remove preretinal membrane VITRECTOMY 25G [facility] PARS PLANA APPROACH W/ REMOVAL OF PRERETINAL CELLULAR MEMBRANE Hemorrhagic choroidal detachment of right eye 07/27/2024 10:50 AM EST [facility] Start: 07-23-2024 End: 07-23-2024 Patient encounter procedure 07/23/2024 10:45 AM EST Office Visit [facility] [address] [address] Savana Lopez MD [address] [place] [address] *1 W, DFE OD/BSCAN OD/OPTOS OD Ophthalmology Comment on above: *1 W, DFE OD/BSCAN OD/OPTOS OD Start: 07-18-2024 Advance Directive Discussion Advance Directive Discussion [facility] Start: 07-18-2024 Medicare Advantage Annual Wellness Visit Medicare Advantage Annual Wellness Visit [facility] Start: 07-16-2024 End: 07-16-2024 Patient encounter procedure Ophthalmology Comment on above: Please schedule this patient with Dr. Jose Angel grey Tuesday07/16/24. Ok to over book per Dr. Lopez *NEW, HEMORRHAGIC CH OROIDALS/MONOCULAR, DFE OD/g SCAN OD ok per DM Start: 07-13-2024 End: 07-13-2024 Aspiration/release vitreous subretinal/choroidal ASPIRATION VITREOUS, CHOROIDAL FLUID, PARS PLANA APPROACH Hemorrhagic choroidal detachment of right eye 07/13/2024 2:04 PM EST [facility] Start: 07-13-2024 End: 07-13-2024 Evaluation and management of inpatient 07/13/2024 2:04 PM EST - 07/13/2024 3:24 PM EST Surgery Ophthalmology [address] [address] Savana Lopez MD [address] [place] [address] ASPIRATION VITREOUS, CHOROIDAL FLUID, PARS PLANA APPROACH Ophthalmology Comment on above: ASPIRATION VITREOUS, CHOROIDAL FLUID, PA RS PLANA APPROACH Start: 06-04-2024 End: 05-21-2025 POCT Prothrombin Time INR ([facility]) POCT Prothrombin Time INR ([facility]) Lab Routine Atrial fibrillation, unspecified type (HCC) Acute venous embolism and thrombosis of deep vessels of proximal end of right lower extremity (HCC) Expected: 06/04/2024, Expires: 05/21/2025 [employer] Work Phone: Comment on above: Expected: 06/04/2024, Expires: Start: 06-04-2024 End: 06-04-2024 Anticoagulant drug monitoring 06/04/2024 1:15 AM EST Anticoagulation - Warfarin Visit [facility] [address] [place] [phone] [facility] Start: 05-22-2024 End: 05-22-2024 Patient encounter procedure 05/22/2024 3:00 PM EST Office Visit [facility] [address] [facility] [address] [place] [phone] Hermila Padilla MD [address] [facility] [address] [place], [place] [phone] [facility] Start: 05-22-2024 End: 05-22-2024 Anticoagulant drug monitoring 05/22/2024 12:45 AM EST Anticoagulation - Warfarin Visit [facility] [address] [facility] [address] [place] [phone] [facility] Start: 05-14-2024 End: 05-14-2024 Patient encounter procedure 05/14/2024 2:00 PM EDT Appointment [facility] Non-Invasive Cardiology [address] [place] [phone] [facility] Non-Invasive Cardiology Start: 05-08-2024 End: 05-01-2025 POCT Prothrombin Time INR ([facility]) POCT Prothrombin Time INR ([facility]) Lab Routine Atrial fibrillation, unspecified type (HCC) Acute venous embolism and thrombosis of deep vessels of proximal end of right lower extremity (HCC) Expected: 05/08/2024 (Approximate), Expires: 05/01/2025 [employer] Work Phone: Comment on above: Expected: 05/08/2024 (Approximate), Expi res: 05/01/2025 Start: 05-08-2024 End: 05-08-2024 Anticoagulant drug monitoring 05/08/2024 1:30 AM EDT Anticoagulation - Other Visit [facility] [address] [facility] [address] [facility] [place] [phone] [facility] Start: 05-01-2024 End: 05-01-2024 Anticoagulant drug monitoring 05/01/2024 Anticoagulation - Warfarin Visit [facility] [address] [facility] [address] [facility] [place] [phone] [facility] Start: 04-23-2024 End: 04-19-2025 POCT Prothrombin Time INR ([facility]) POCT Prothrombin Time INR ([facility]) Lab Routine Atrial fibrillation, unspecified type (HCC) Acute venous embolism and thrombosis of deep vessels of proximal end of right lower extremity (HCC) Expected: 04/23/2024 (Approximate), Expires: 04/19/2025 [facility] Work Phone: Comment on above: Expected: 04/23/2024 (Approximate), Expi res: 04/19/2025 Start: 04-23-2024 End: 04-23-2024 Patient encounter procedure 04/23/2024 9:15 AM EDT Office Visit [facility] [place] [address] [place] [phone] Henok Hernandez PA-C [address] [facility] [address] [facility] [address] [place], [place] [phone] [facility] [place] Start: 04-23-2024 End: 04-23-2024 Anticoagulant drug monitoring 04/23/2024 1:15 AM EDT Anticoagulation - Warfarin Visit [facility] [address] [phone] [facility] Start: 04-19-2024 End: 04-19-2024 Anticoagulant drug monitoring 04/19/2024 1:00 AM EDT Anticoagulation - Warfarin Visit [facility] [address] [place] [phone] [facility] Start: 04-16-2024 End: 04-16-2025 POCT Prothrombin Time INR ([facility]) POCT Prothrombin Time INR ([facility]) Lab Routine Deep vein thrombosis (DVT) of lower extremity, unspecified chronicity, unspecified laterality, unspecified vein (HCC) Expected: 04/16/2024, Expires: 04/16/2025 [facility] Work Phone: Comment on above: Expected: 04/16/2024, Expires: Start: 03-18-2024 Covid-19 Vaccine ( season) Covid-19 Vaccine ( season) [facility] Start: 03-18-2024 Influenza vaccination Influenza Vaccine (#1) [facility] Start: 07-18-2023 Advance Directive Discussion Advance Directive Discussion [facility] Start: 07-18-2023 Medicare Advantage Annual Wellness Visit Medicare Advantage Annual Wellness Visit [facility] Start: 03-18-2023 Influenza vaccination Influenza Vaccine (#1) [facility] Start: 03-18-2022 Influenza vaccination INFLUENZA (#1) [facility] Start: 07-18-2021 ADVANCE DIRECTIVE DISCUSSION ADVANCE DIRECTIVE DISCUSSION [facility] Start: 07-18-2021 DEPRESSION ASSESSMENT DEPRESSION ASSESSMENT [facility] Start: 03-18-2020 [facility] Start: 03-13-2020 End: 03-13-2020 Office Visit 03/13/2020 Office Visit Orthopedic Surgery aJyla Mcmahan MD [address] [facility] [address] [place], [place] [address] [facility] Medical [facility] [place] Start: 03-07-2020 Hospital Encounter 03/07/2020 Hospital Encounter IP Unit Jayla Mcmahan MD [address] [facility] [address] [place] [address] [phone] Yoan Serrato Dept Start: 03-06-2020 Annual Wellness Visit (AWV) Annual Wellness Visit (AWV) [facility] Start: 04-12-2019 Pneumococcal Vaccine: 50+ Years (2 of 2 - PPSV23) Pneumococcal Vaccine: 50+ Years (2 of 2 - PPSV23) [facility] Start: 04-12-2019 Pneumococcal Vaccine: 65+ Years (2 - PPSV23 if available, else PCV20) Pneumococcal Vaccine: 65+ Years (2 - PPSV23 if available, else PCV20) [facility] Start: 04-12-2019 Pneumococcal Vaccine: 65+ Years (2 - PPSV23 or PCV20) Pneumococcal Vaccine: 65+ Years (2 - PPSV23 or PCV20) [facility] Start: 04-12-2019 Pneumococcal Vaccine: 65+ Years (2 of 2 - PPSV23 or PCV20) Pneumococcal Vaccine: 65+ Years (2 of 2 - PPSV23 or PCV20) [facility] Start: 02-13-2016 DIABETES SCREEN DIABETES SCREEN [facility] Start: 09-24-2014 RSV Immunization for Adults (1 - 1-dose 75+ series) RSV Immunization for Adults (1 - 1-dose 75+ series) [facility] Start: 04-23-2010 DIABETES SCREEN DIABETES SCREEN [facility] Start: 09-24-2004 BONE DENSITY BONE DENSITY [facility] Start: 09-24-2004 Pneumococcal 65+ years Vaccine (2 of 2 - PPSV23) Pneumococcal 65+ years Vaccine (2 of 2 - PPSV23) [place] Start: 09-24-2004 PNEUMOCOCCAL: 65+ (1 - PCV) PNEUMOCOCCAL: 65+ (1 - PCV) [facility] Start: 09-24-2004 Screening for osteoporosis Bone Density Screening [facility] Start: 1999 RSV Immunization aged 60 or older (1 - 1-dose 60+ series) RSV Immunization aged 60 or older (1 - 1-dose 60+ series) [facility] Start: 09-24-1994 Screening for osteoporosis DEXA (modify frequency per FRAX score) [place] Start: 09-24-1989 Shingles Vaccine (1 of 2) Shingles Vaccine (1 of 2) [place] Start: 09-24-1989 SHINGRIX VACCINE (1 of 2) SHINGRIX VACCINE (1 of 2) [facility] Start: 09-24-1989 Zoster Vaccines (1 of 2) Zoster Vaccines (1 of 2) [facility] Start: 09-24-1958 Urine microalbumin profile DTAP,TDAP,TD (1 - Tdap) [facility] Start: 09-24-1958 Zoster Vaccines (1 of 2) Zoster Vaccines (1 of 2) [facility] Start: 09-24-1957 Anxiety Screening Anxiety Screening [facility] Start: 09-24-1957 Depression Screening Depression Screening [facility] Start: 09-24-1957 Diabetes: Urine Albumin-Creatinine Ratio for Kidney Health Diabetes: Urine Albumin-Creatinine Ratio for Kidney Health [facility] Start: 09-24-1957 SPIROMETRY SPIROMETRY [facility] Start: 1951 Depression Monitoring Depression Monitoring [facility] Start: 1951 Depresssion Monitoring Depresssion Monitoring [facility] Start: 09-24-1945 PNEUMOCOCCAL: 65+ (1 - PCV) PNEUMOCOCCAL: 65+ (1 - PCV) [facility] Start: 09-24-1944 COVID-19 Vaccine (#1) COVID-19 Vaccine (#1) [facility] Start: 03-27-1940 COVID-19 VACCINE (#1) COVID-19 VACCINE (#1) [facility] Start: 1939 Creatinine measurement Creatinine monitoring [facility] [place] Start: 1939 Lipid panel Lipid Panel [facility] Start: 1939 Medicare Advantage Annual Wellness Visit (AWV) Medicare Advantage Annual Wellness Visit (AWV) [facility] Start: 1939 Potassium monitoring Potassium monitoring [facility] [place], [place] Start: 1939 Screening for osteoporosis Bone Density Scan [facility] Start: 1939 Thyroid stimulating hormone measurement TSH Level [facility] Angiography extremit y unilateral rs&i AORTOGRAM, WITH SERIALOGRAPHY Critical limb ischemia of right lower extremity (HCC) [facility] Operating Room Aortography abdomina l serialography rs&i AORTOGRAM, WITH SERIALOGRAPHY Critical limb ischemia of right lower extremity (HCC) [facility] Operating Room BSCAN OD (RIGHT EYE) BSCAN OD (R IGHT EYE) [facility] Imaging Routine Hemorrhagic choroidal detachment of right eye 07/09/2024 9:09 AM EST [facility] Work Phone: End: 01-03-2026 BSCAN OD (RIGHT EYE) BSCAN OD (RIGHT EYE) [facility] Imaging Routine Hemorrhagic choroidal detachment of right eye Dislocation of intraocular lens, initial encounter 1 Occurrences starting 07/12/2024 until 01/03/2026 [facility] Work Phone: Comment on above: 1 Occurrences starting 07/12/2024 until 01/03/2026 End: 01-07-2026 BSCAN OD (RIGHT EYE) BSCAN OD (RIGHT EYE) [facility] Imaging Routine Postoperative eye state 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, right eye Subluxation of right lens 1 Occurrences starting 07/16/2024 until 01/07/2026 [facility] Comment on above: 1 Occurrences starting 07/16/2024 until 01/07/2026 End: 02-27-2026 BSCAN OD (RIGHT EYE) BSCAN OD (RIGHT EYE) [facility] Imaging Routine Postoperative eye state 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, right eye Subluxation of right lens 1 Occurrences starting 09/05/2024 until 02/27/2026 [facility] Work Phone: Comment on above: 1 Occurrences starting 09/05/2024 until 02/27/2026 Camera fundoscopy FUNDUS PHOTOS OU (BOTH EYES) [facility] Imaging Routine Hemorrhagic choroidal detachment of right eye 07/09/2024 8:35 AM EST [facility] End: 03-08-2023 CT Neck W [facility] Work Phone: Comment on above: Once for 1 Occurrences starting 03/08/20 until 03/08/2023 Incision/Drainage Incision/Drain age Procedures Routine 02/08/2020 7:17 PM EDT [facility] OUT[facility] PROCEDURE SCAN OUTSIDE P ROCEDURE SCAN Procedures Ordered: 02/21/2023 [facility] [employer] [facility] Comment on above: Ordered: 02/21/2023 OUTSIDE PROCEDURE SCAN OUTSIDE P ROCEDURE SCAN Procedures Ordered: 03/07/2023 [facility] [employer] [facility] Comment on above: Ordered: 03/07/2023 OUTSIDE PROCEDURE SCAN OUTSIDE P ROCEDURE SCAN Procedures Ordered: 05/24/2023 [facility] [employer] [facility] Comment on above: Ordered: 05/24/2023 OUTSIDE PROCEDURE SCAN OUTSIDE P ROCEDURE SCAN Procedures Ordered: 06/14/2023 [facility] [employer] [facility] Comment on above: Ordered: 06/14/2023 Oxygen therapy [Minimum Data Set] Initiate Oxygen Therapy Protocol Respiratory Care Routine Daily until discontinued starting 03/07/2020 [facility] Comment on above: Daily until discontinued starting 2019 End: 02-22-2023 US Head and neck soft tissue [facility] [facility] Work Phone: Comment on above: Once for 1 Occurrences starting 02/23/20 until 02/22/2023 End: 03-06-2020 XR FINGER RIGHT (MIN 2 VIEWS) XR FINGER RIGHT (MIN 2 VIEWS) Imaging Routine Once for 1 Occurrences starting 03/06/2020 until 03/06/2020 [place] Comment on above: Once for 1 Occurrences starting 03/06/20 until 03/06/2020 XR FINGER RIGHT (MIN 2 VIEWS) XR FINGER RIGHT (MIN 2 VIEWS) Imaging Routine 03/06/2020 10:20 AM EDT [facility] Immunizations Immunization Date Immunization Notes Care Provider [facility] 05-19-2021 Influenza, High-dose Seasonal, Quadrivalent, Preservative Free Ming Weinberg MD Work Phone: [employer] 05-19-2021 influenza virus vaccine, unspecified formulation Jared Evans MD Work Phone: [employer] 02-15-2019 pneumococcal conjuga te vaccine, 13 valent Ming Weinberg MD Work Phone: [employer] 02-15-2019 tetanus toxoid, redu larissa diphtheria toxoid, and acellular pertussis vaccine, adsorbed Ming Weinberg MD Work Phone: [employer] 06-29-2013 influenza, high dose seasonal, preservative-free Ming Weinberg MD Work Phone: [employer] NEGATED: Highlighted row has not occurred!04-05-2024 Seasonal trivalent influenza vaccine, adjuvanted, preservative free Uma Cornell DO Work Phone: [employer] Comment on above: Deferred: Patient Re fused Payers Date Payer Category Payer Self-pay 2023 Private Health Insurance HU[employer]NA HU[employer]NA MEDICARE SUPPLEMENT [id number] 2023-2023 [address] [address] [place] [address] Commercial [id number] 2017 Medicare [id number] 2017 Medicare (Managed Care) REY ESCOBAR [id number] 2017 Medicare HMO HUMANA MEDICARE [id number] 2017 Medicare [id number] 1939 Unknown [id number] Unknown [id number] Unknown [id number] Unknown [id number] [id number]. 2.462 Unknown [id number] 2.16840.1.030478.3.579. 2.462 Unknown [id number] 2.16.840.1.691525.3.579. 2.462 Unknown [id number] 2.16.840.1.986797.3.579. 2.462 Unknown [id number] 2.16.840.1.662859.3.579. 2.462 Unknown [id number] 2.16840.1.716739.3.579. 2.462 Unknown [id number] 2.16.840.1.883695.3.579. 2.462 Unknown [id number] 2..840.1.271532.3.579. 2.462 Unknown [id number] 2.840.1.771047.3.579. 2.462 Unknown [id number] 2.840.1.075974.3.579. 2.462 Unknown [id number] 2.840.1.810358.3.579. 2.462 Unknown [id number] 2.840.1.162897.3.579. 2.462 Unknown [id number] 2.840.1.060244.3.579. 2.462 Unknown [id number] 2.840.1.581518.3.579. 2.462 Unknown [id number] 2.840.1.673993.3.579. 2.462 Unknown [id number] 2.16840.1.221043.3.579. 2.462 Unknown [id number] 2.840.1.971624.3.579. 2.462 Unknown [id number] 2.840.1.373006.3.579. 2.462 Unknown [id number] 2.840.1.201147.3.579. 2.462 Unknown [id number] 2.16840.1.348645.3.579. 2.462 Unknown [id number] 2.16.840.1.555113.3.579. 2.462 Social History Date Type Detail Facility Start: 02-08-2020 Tobacco smoking stat [facility] Start: 02-08-2020 End: 04-20-2024 Alcohol intake [facility]: 02-08-2020 End: 05-22-2024 Alcohol Comment occ [facility] Start: 1940 Sex Assigned At Not on file M [facility] Start: 05-04-2022 End: 03-08-2023 Exposure to SARS-CoV-2 (event) Not sure [facility] Start: 03-06-2020 End: 04-25-2024 Tobacco smoking status NHIS [facility] Start: 03-06-2020 End: 04-25-2024 Tobacco use and exposure Never used [facility] Tobacco smoking stat [facility] Tobacco smoking consumption unknown [facility] Start: 05-17-2022 End: 04-04-2024 Tobacco smoking status NEIS Smokes tobacco daily [facility] History of tobacco use Cigarette Smoker C [facility] Start: 05-17-2022 End: 08-11-2024 Cigarettes smoked current (pack per day) - Reported 0.5 [facility] Start: 05-18-2022 History SDOH Financial 5 [facility] Start: 05-18-2022 History SDOH Food Worry 1 [facility] Start: 05-18-2022 History SDOH Transpo rt Med 2 [facility] Start: 07-05-2022 End: 12-05-2024 Alcohol intake Ex-drinker (finding) [facility] History of tobacco use Current smoker [employer] Start: 07-27-2023 End: 08-11-2024 Gender identity Not on file [employer] How often do you nee d to have someone help you when you read instructions, pamphlets, or other written material from your doctor or pharmacy [SILS] Never [facility] Has the electric, [employer], [employer], or water [employer] threatened to shut off services in your home in past 12Mo No [employer] Are you now , , , , never or living with a partner? [facility] How often to you hav e a drink containing alcohol? Monthly or less [facility] How often do you hav e 6 or more drinks on 1 occasion? Never [facility] How hard is it for y ou to pay for the very basics like food, housing, medical care, and heating Not very hard [facility] Do you feel stress - tense, restless, nervous, or anxious, or unable to sleep at night because your mind is troubled all the time - these days [OSQ] Not at all [facility] (I/We) worried wheth er (my/our) food would run out before (I/we) got money to buy more. Never true [facility] Start: 02-15-2022 End: 10-25-2024 Sex Female (finding) [facility] Start: 1940 Sex assigned at Female S [facility] Start: 08-03-2024 Gender identity Identifies as female gender (finding) [facility] Start: 08-03-2024 Sexual orientation Heterosexual (fin ding) [facility] NEGATED: Highlighted rowStart: NINF History of tobacco use Passive smoker [facility] Medical Equipment Procedure Code Equipment Code Equipment Origin al Text Equipment Identifier Dates Gas Ispan [employer]ellation Intraocular Vision System [id number] [id number] - [id number] Start: 07-27-2024 Stent Vasc 6x40x 125 6f [employer] - Sna - [id number] Start: 11-22-2024 Stent Oliva 5x40x1 25 6f [employer] - Sna - [id number] Start: 11-22-2024 Functional Status Date Assessment Result Facility 07-18-2024 Are you deaf, or do you have serious difficulty hearing No 07/18/2024 12:17 PM Jaci Umana, RADHA No [facility] 07-18-2024 Are you blind, or do you have serious difficulty seeing, even when wearing glasses Yes 07/18/2024 12:17 PM Jaci Umana, RN Yes [facility] 07-18-2024 Do you have serious difficulty walking or climbing stairs Yes 07/18/2024 12:17 PM Jaci Umana, RN Yes [facility] 07-18-2024 Do you have difficul ty dressing or bathing Yes 07/18/2024 12:17 PM Jaci Umana, RN Yes [facility] 07-18-2024 Because of a physica l, mental, or emotional condition, do you have difficulty doing errands alone such as visiting a physician's office or shopping Yes 07/18/2024 12:17 PM Jaci Umana, RN Yes [facility] Mental Status Date Assessment Result Facility 07-18-2024 Because of a physica l, mental, or emotional condition, do you have serious difficulty concentrating, remembering, or making decisions No 07/18/2024 12:17 PM Jaci Umana, RN No [facility] Clinical Notes 05-14-2022 to 01-02-2025 Savana Lopez [...] 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 documented in this encounter [facility] 01-02-2025 Note HNO ID: [id number] Author: SAVANA LOPEZ MD Service: ? 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 HYSTERECTOMY ORTHOPEDIC SURGERY THROMBECTOMY Right 04/06/2024 RLE mechanical thrombectomy ([facility]) VASCULAR SURGERY Right 11/22/2024 AORTOILIAC ANGIOGRAPHY, RIGHT LOWER EXTREMITY ANGIOGRAPHY WITH RUNOFF, SUPERFICIAL FEMORAL ARTERY, POPLITEAL,TIBIAL ANGIOPLASTY and STENTING ([facility]) VASCULAR SURGERY Left 11/22/2024 Left femoral angiography ([facility]) documented in this encounter [facility] [employer] 12-05-2024 History of Present illness Narrative 12/05/2024 [...] right with MICHELLE PAD (peripheral artery disease) ([facility]) Relevant Orders Vascular US lower [...] I reviewed the images with the patient's [id number] who was present for today's visit as the patient is blind. Follow up after arterial duplex to discuss the results. 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 Groin site remains intact and LE distal pulses unchanged via assessment with doppler. Transportation called for pickle cutter [facility] 11-22-2024 Miscellaneous Notes POA called to bedside and discharge instructions reviewed. Groin site remains intact and LE distal pulses unchanged via assessment with doppler. Transportation called for pickle cutter POA given updated via phone call. Made [...] access site SURGEON: Kristyn Blankenship MD ASSISTANTS: Leonid Khanna MD (PGY-1) FINDINGS: The infrarenal abdominal [...] the patient as well as the patient's [id number] Fidel. They have elected to proceed. PROCEDURE [...] technique was used to place a 5 Tuvaluan sheath. The Bentson wire was positioned in [...] catheter and the catheter removed. The 5 Tu[place]uan sheath was exchanged for a long 6 Tu[place]uan Ansell sheath which was positioned with its [...] sheath was exchanged for a short 6 [place] sheath. A Vascade closure device was deployed [...] MD Vascular Surgery documented in this encounter [facility] 11-22-2024 Procedure note POA given updated via phone call. Made aware of patient's orders to lay flat until 1325. Daughter in law stated that she will call care facility later to make arrangements for transportation back. [facility] 11-22-2024 Hospital Discharge instructions Leonid Khanna MD - 11/22/2024 11:39 AM EDT [...] believe that your bruise is getting larger, mary the border with a pen or marker [...] the office l documented in this encounter [facility] 11-22-2024 Nurse Note Patient arrived on unit. Name and date verified. Attached to monitors. Vital signs stable. [facility] 11-22-2024 Note [facility] 11-22-2024 Procedure note OPERATIVE REPORT DATE OF [...] access site SURGEON: Kristyn Blankenship MD ASSISTANTS: Leonid Khanna MD (PGY-1) FINDINGS: The infrarenal abdominal [...] the patient as well as the patient's [id number] iFdel. They have elected to proceed. PROCEDURE IN [...] technique was used to place a 5 Tuvaluan sheath. The Bentson wire was positioned in [...] catheter and the catheter removed. The 5 Tu[place]uan sheath was exchanged for a long 6 Tu[place]uan Ansell sheath which was positioned with its [...] sheath was exchanged for a short 6 Tu[place]uan sheath. A Vascade closure device was deployed [...] preoperative examination. Kristyn Blankenship MD Vascular Surgery [facility] 11-22-2024 Attending History and physical note H&P reviewed. The patient was examined and there are no changes to the H&P. Plan for right lower extremity angiography with possible SFA/popliteal intervention. I discussed the procedure with the patient and how it is performed. I reiterated the risk of access site complications. The patient's POA Fidel Bradford was also present in the pre-operative area. [...] with a walker with pT at her prison facility. She is on Eliquis and statin. 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 Authorizing Provider amLODIPine (Norvasc) 5 MG tablet Take 1 tablet (5 mg) by mouth daily. 08/12/24 08/12/25 Kael Hayward DO apixaban (Eliquis) 5 MG tablet Take 1 tablet (5 mg) by mouth 2 times daily. 08/09/24 Kael Hayward, ascorbic acid (Vitamin C) 500 MG tablet Take 500 mg by mouth in the morning and 500 mg at noon and 500 mg in the evening. 06/28/22 Historical Provider, atorvastatin (Lipitor) 80 MG tablet Take 1 tablet (80 mg) by mouth daily. 08/09/24 09/22/24 Kael Hayward DO lisinopril 40 MG tablet Take 40 [...] Resource Strain: Low Risk (06/20/2024) Received from [facility] Overall Financial Resource Strain (CARDIA) Difficulty [...] min Stress: Patient Unable To Answer (08/03/2024) [place] [employer] - Occupational Stress Questionnaire Feeling of Stress : Patient unable to answer Social Connections: Unknown (08/03/2024) Social Connection and Isolation Panel [NHANES] Frequency of Communication with Friends and Family: Patient unable to answer Frequency of Social Gatherings with Friends and Family: Patient unable to answer Attends Alevism Services: Patient unable to answer Active Member of Clubs or Organizations: Patient unable to answer Attends Club or Organization Meetings: Never Marital Status: Patient unable to answer Recent Concern: Social Connections - Moderately Isolated (06/20/2024) Received from [facility] Social Connection and Isolation Panel [NHANES] Frequency of Communication with Friends and Family: More than three times a week Frequency of Social Gatherings with Friends and Family: Once a week Attends Alevism Services: More than 4 times per year [...] like me to discuss this with her tjvtcvhx-di-wxx Fidel Bradford. She states she is her POA. I have contacted Fidel via telephone and explained the above and the recommendations for angiography. She will speak with the patient and call the office to let us know how they would like to proceed. Kristyn Blankenship MD Vascular Surgery [employer] Work Phone: 11-22-2024 Note [employer] [facility] 11-22-2024 History and physical note H&P reviewed. The patient was examined and there are no changes to the H&P. Plan for right lower extremity angiography with possible SFA/popliteal intervention. I discussed the procedure with the patient and how it is performed. I reiterated the risk of access site complications. The patient's POA Fidel Bradford was also present in the pre-operative area. [...] with a walker with pT at her prison facility. She is on Eliquis and statin. She is a former smoker. PastMedical History: Past Medical History: Diagnosis Date Arrhythmia PAF Asthma Chronic kidney disease COPD (chronic obstructive pulmonary disease) ([facility]) DVT (deep venous thrombosis) ([facility]) Essential hypertension 03/07/2020 GERD (gastroesophageal reflux disease) Hiatal hernia IBS (irritable bowel syndrome) Pure hypercholesterolemia 03/07/2020 PVD (peripheral vascular disease) ([facility]) Stroke ([facility]) Past Surgical History: Past Surgical History: Procedure Laterality Date ANKLE SURGERY ARM SURGERY (HISTORICAL) Right COLONOSCOPY ESOPHAGEAL DILATION EYE SURGERY Right 07/05/2024 [facility] EYE SURGERY Right 06/2024 x2, [facility] 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 Authorizing Provider amLODIPine (Norvasc) 5 MG tablet Take 1 tablet (5 mg) by mouth daily. 08/12/24 08/12/25 Kael Hayward, DO apixaban (Eliquis) 5 MG tablet Take 1 tablet (5 mg) by mouth 2 times daily. 08/09/24 Kael Hayward DO ascorbic acid (Vitamin C) 500 MG tablet Take 500 mg by mouth in the morning and 500 mg at noon and 500 mg in the evening. 06/28/22 Historical Provider, atorvastatin (Lipitor) 80 MG tablet Take 1 tablet (80 mg) by mouth daily. 08/09/24 09/22/24 Kael Hayward DO lisinopril 40 MG tablet Take 40 [...] min Stress: Patient Unable To Answer (08/03/2024) [place] [employer] - Occupational Stress Questionnaire Feeling of Stress : Patient unable to answer Social Connections: Unknown (08/03/2024) Social Connection and Isolation Panel [NHANES] Frequency of Communication with Friends and Family: Patient unable to answer Frequency of Social Gatherings with Friends and Family: Patient unable to answer Attends Alevism Services: Patient unable to answer Active Member of Clubs or Organizations: Patient unable to answer Attends Club or Organization Meetings: Never Marital Status: Patient unable to answer Recent Concern: Social Connections - Moderately Isolated (06/20/2024) Received from [facility] Social Connection and Isolation Panel [NHANES] Frequency of Communication with Friends and Family: More than three times a week Frequency of Social Gatherings with Friends and Family: Once a week Attends Alevism Services: More than 4 times per year [...] like me to discuss this with her ehntzzcb-nd-anu Fidel Bradford. She states she is her POA. I have contacted Fidel via telephone and explained the above and the recommendations for angiography. She will speak with the patient and call the office to let us know how they would like to proceed. Kristyn Blankenship MD Vascular Surgery documented in this encounter [facility] 11-09-2024 Note Tried to reach patie nt to discuss sustainability communicator her procedure. Mailbox full & unable to leave voicemail. [facility] 11-05-2024 History of Present illness Narrative Vascular [...] with a walker with pT at her prison facility. She is on Eliquis and statin. She is a former smoker. PastMedical History: Past Medical History: Diagnosis Date Arrhythmia PAF Asthma Chronic kidney disease COPD (chronic obstructive pulmonary disease) ([facility]) DVT (deep venous thrombosis) ([facility]) Essential hypertension 03/07/2020 GERD (gastroesophageal reflux disease) Hiatal hernia IBS (irritable bowel syndrome) Pure hypercholesterolemia 03/07/2020 PVD (peripheral vascular disease) ([facility]) Stroke ([facility]) Past Surgical History: Past Surgical History: Procedure Laterality Date ANKLE SURGERY ARM SURGERY (HISTORICAL) Right COLONOSCOPY ESOPHAGEAL DILATION EYE SURGERY Right 07/05/2024 [facility] EYE SURGERY Right 06/2024 x2, [facility] 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 Authorizing Provider amLODIPine (Norvasc) 5 MG tablet Take 1 tablet (5 mg) by mouth daily. 08/12/24 08/12/25 Kael Hayward DO apixaban (Eliquis) 5 MG tablet Take 1 tablet (5 mg) by mouth 2 times daily. 08/09/24 Kael Hayward, ascorbic acid (Vitamin C) 500 MG tablet Take 500 mg by mouth in the morning and 500 mg at noon and 500 mg in the evening. 06/28/22 Historical Provider, atorvastatin (Lipitor) 80 MG tablet Take 1 tablet (80 mg) by mouth daily. 08/09/24 09/22/24 Kael Hayward DO lisinopril 40 MG tablet Take 40 [...] right eye 2 times daily. 07/06/24 07/06/25 RedDO Mark Garg Ellipta 100-62.5-25 MCG/ACT aerosol powder Take 1 [...] Resource Strain: Low Risk (06/20/2024) Received from [facility] Overall Financial Resource Strain (CARDIA) Difficulty [...] min Stress: Patient Unable To Answer (08/03/2024) [place] [employer] - Occupational Stress Questionnaire Feeling of Stress : Patient unable to answer Social Connections: Unknown (08/03/2024) Social Connection and Isolation Panel [NHANES] Frequency of Communication with Friends and Family: Patient unable to answer Frequency of Social Gatherings with Friends and Family: Patient unable to answer Attends Alevism Services: Patient unable to answer Active Member of Clubs or Organizations: Patient unable to answer Attends Club or Organization Meetings: Never Marital Status: Patient unable to answer Recent Concern: Social Connections - Moderately Isolated (06/20/2024) Received from [facility] Social Connection and Isolation Panel [NHANES] Frequency of Communication with Friends and Family: More than three times a week Frequency of Social Gatherings with Friends and Family: Once a week Attends Alevism Services: More than 4 times per year [...] like me to discuss this with her kjqaugos-cd-vft Fidel Bradford. She states she is her POA. I have contacted Fidel via telephone and explained the above and the recommendations for angiography. She will speak with the patient and call the office to let us know how they would like to proceed. Kristyn Blankenship MD Vascular Surgery documented in this encounter [facility] 11-05-2024 Note [facility] 10-01-2024 Note Date of Procedure 10/01/2024. [employer] Information CATALINA Donovan CDOS 10/01/2024 10:58 AM [...] drops right eye documented in this encounter [facility] 10-01-2024 Note HNO ID: [id number] Author: SAVANA LOPEZ MD Service: ? 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 documented in this encounter [facility] 09-05-2024 Note HNO ID: [id number] Author: SAVANA LOPEZ MD Service: ? 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 [facility] 08-22-2024 History of Present illness Narrative [facility] Vascular Surgery Follow-up Office Visit CHIEF COMPLAINT: Chief Complaint Patient presents with Follow-up 3 month follow up, PAD check ([facility] [place]) HISTORY OF PRESENT ILLNESS: Mel Pop is [...] Pure hypercholesterolemia 03/07/2020 PVD (peripheral vascular disease) ([facility]) Stroke ([facility]) Past Surgical History: Past Surgical History: Procedure Laterality Date ANKLE SURGERY ARM SURGERY (HISTORICAL) Right COLONOSCOPY ESOPHAGEAL DILATION EYE SURGERY Right 07/05/2024 [facility] EYE SURGERY Right 06/2024 x2, [facility] 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 HYSTERECTOMY ORTHOPEDIC SURGERY THROMBECTOMY Right 04/06/2024 RLE mechanical thrombectomy ([facility]) Current Medications: Current Outpatient Medications: amLODIPine (Norvasc) [...] min Stress: Patient Unable To Answer (08/03/2024) [place] [employer] - Occupational Stress Questionnaire Feeling of Stress : Patient unable to answer Social Connections: Unknown (08/03/2024) Social Connection and Isolation Panel [NHANES] Frequency of Communication with Friends and Family: Patient unable to answer Frequency of Social Gatherings with Friends and Family: Patient unable to answer Attends Alevism Services: Patient unable to answer Active Member of Clubs or Organizations: Patient unable to answer Attends Club or Organization Meetings: Never Marital Status: Patient unable to answer Recent Concern: Social Connections - Moderately Isolated (06/20/2024) Received from [facility] Social Connection and Isolation Panel [NHANES] Frequency of Communication with Friends and Family: More than three times a week Frequency of Social Gatherings with Friends and Family: Once a week Attends Alevism Services: More than 4 times per year [...] (HCC) - Primary PAD (peripheral artery disease) ([facility]) 1. Stable follow up of lower extremity [...] Follow-Up: prn . documented in this encounter [facility] 08-16-2024 Note [facility] 08-16-2024 Nurse Note Patient picked up for transfer to [facility] by stretcher. Report already called to GENET Garcia. [facility] 08-16-2024 Nurse Note Patient picked up for transfer to [facility] by stretcher. Report already called to GENET Garcia. Telephone report called to GENET Garcia at [facility]. Bedside swallow completed. Pt passed and tolerated well tolerated well. documented in this encounter [facility] 08-16-2024 Nurse Note Telephone report called to GENET Garcia at [facility]. [facility] 08-16-2024 Note Formatting of this n ote might be different from the original. Arranged transport to [facility] via [employer] with pickup at 2pm. Notified snf of transport time via Careport message; reviewed time with RN, laborer ammunition assembly and TCC. Called pt's daughter to review discharge time., plan; she is agreeable. [facility] 08-16-2024 Note Formatting of this n ote might be different from the original. Arranged transport to [facility] via [employer] with pickup at 2pm. Notified snf of transport time via [employer]port message; reviewed time with RN, laborer ammunition assembly and TCC. Called pt's daughter to review discharge time., plan; she is agreeable. [facility] 08-16-2024 Miscellaneous Notes Arranged transport to [facility] via [employer] with pickup at 2pm. Notified snf of transport time via [employer]port message; reviewed time with RN, laborer ammunition assembly and TCC. Called pt's daughter to review discharge time., plan; she is agreeable. Patient Choice Patient Name: MEL POP Date of : 1940 All Providers Sent Referral Name: [facility] Phone: [phone] Address: [address] [place] [address] Name: [facility] Phone: [phone] Address: [address] [place] [address] Name: [facility] Phone: [phone] Address: [address] [place] [address] MAR & Discharge med list transmitted to [facility] via [employer] per TCC request. Pt has auth to go to [facility]. Dtr Fidel,[phone] was called, message left @DC. Care Team was messaged...place DC orders/MAR. Dar YOUNG, RN complete HECTOR. ASSISTED LIVING COORDINATOR will arrange transport for this am. [facility] tasked to sebd DC orders/MAR. [...] Progressing Authorization is pending with Rey. Ref# [id number] to be DC'd to [facility]. Dttiffanie Stokes Updated. CM to follow. Patient [...] Progressing Pt has Been accepted to [facility]. Need PT/OT to see so auth [...] Outcome: Progressing Referral placed to SNF- [facility] via [employer] per TCC request. Await review and response regarding ability to accept. [facility] notified. Electronically signed by Christine Morataya [facility], 08-13-2024 at 3:00 PM Called dgt to talk about dc planning. Dgt continues to tour SNFs this evening, since she was sick this weekend. Provided me with two more SNF choices. [facility]. Tasked [facility] to create these referrals. CM [...] Dgt touring facilities over the weekend. Moira. [facility] pending acceptance, updates sent via [facility]. Problem: Knowledge Deficit Goal: Patient/family/caregiver demonstrates [...] Nutritional Intake Outcome: Progressing Referral placed to [facility] via [employer] per TCC request. Await review and response regarding ability to accept. TCC notified. Electronically signed by Christine Morataya [facility], 08-10-2024 at 9:23AM Pt was to be DC to [facility]. Found out pt and dtr didn't want to return to [facility]. SNF was made aware. On adm spoke with Dtr Fidel, ok to return. Called Dtr this am, after speaking with pt and things that happened and didn't happen. Fidel requesting a referral to be made to [facility]. [facility] tasked to send. A SNF list was emailed to Fidel. [email or web address]. She will tour facilities over weekend. CM [...] and med list sent via [facility]port to [facility] per TCC request. Auth received. Patient with active dc orders. Transportation arranged through [employer] with estimated pickle cutter time of 1929. left with daughter Fidel along with 3N phone number to call with questions. Bedside RN aware. Facility updated. [facility] yarding supervisor sent orders to [facility]. salon manager was asked to assist with setting up transport back to [facility] this evening. primary special education teacher had already done so, but this manager lean called daughter to inform her of discharge and transport set up. Daughter did not wish patient to return to the SNF. South Asian History Professor told her that patient is medically stable for dc and that she should continue the discussion with the social worker psychiatric and linux network administrator at The snf, and also get options from [employer]. Coordinator was to message the snf about return this evening via [employer]. Updated PT/OT notes placed to SNF [facility] via [employer] per [facility] request. Await review and response regarding ability to accept. TCC notified. Electronically signed by [facility] Aracelis Gardiner Patient is medically ready for dc. PT/OT both continuing to recommend SNF. [facility] manager lean asked to start auth. Plan to dc back to [facility] pending auth I was off Yesterday, PT note was in from Tuesday. Therapy to see today was sent out to OT Tuesday to see yesterday. Pt was not seen. I did sent a therapy to see today to PT/OT so an auth can be started. Pt will Be Dc'd to [facility]. CM to follow. Problem: Knowledge Deficit Goal: [...] aspiration 2/2 vomiting. Discharge Plan: Return to [facility]. Therapy eval needed for precert. TCC to [...] Plan is for pt to return to [facility]. Auth and HECTOR needed prior to DC. CM to follow. Per attending pt ready for DC. Pt will return to [facility]. Pt needs PT/OT to start [...] RN Outcome: Progressing Return referral placed to [facility] via [facility]port per TCC request. Await review and response regarding ability to accept. TCC notified. Pt to ED w N/V/Diarrhea, was Dx w Aspiration pneumonitis. Started on IV ATB's. Called pt's Dtr, Fidel, . Pt is from [facility]. Plan on returning. [facility] tasked to send a return [...] Improved Outcome: Progressing documented in this encounter [facility] 08-16-2024 Note Formatting of this n ote might be different from the original. Patient Choice Patient Name: MEL POP Date of : 1940 All Providers Sent Referral Name: [facility] Phone: [phone] Address: [address] [place] [address] Name: [facility] Phone: [phone] Address: [address] [place] [address] Name: [facility] Phone: [phone] Address: [address] [place] [address] [facility] 08-16-2024 Note Formatting of this n ote might be different from the original. Patient Choice Patient Name: MEL POP Date of : 1940 All Providers Sent Referral Name: [facility] Phone: [phone] Address: [address] [place], [place] [id number] Name: [facility] Phone: [phone] Address: [address] [place] [address] Name: [facility] Phone: [phone] Address: [address] [place] [address] [facility] 08-16-2024 Note Formatting of this n ote might be different from the original. MAR & Discharge med list transmitted to [facility] via Careport per TCC request. [facility] 08-16-2024 Note Formatting of this n ote might be different from the original. MAR & Discharge med list transmitted to [facility] via [employer] per TCC request. [facility] 08-16-2024 Note Formatting of this n ote might be different from the original. Pt has auth to go to [facility]. Dtr [phone] was called, message left @DC. Care Team was messaged...place DC orders/MAR. Dar YOUNG RN complete HECTOR. ASSISTED LIVING COORDINATOR will arrange transport for this am. PAPERBACK MACHINE OPERATOR tasked to sebd DC orders/MAR. [employer] 08-16-2024 Note Formatting of this n ote might be different from the original. Pt has auth to go to [facility]. Dtr [phone] was called, message left @DC. Care Team was messaged...place DC orders/MAR. Dar YOUNG RN complete HECTOR. ASSISTED LIVING COORDINATOR will arrange transport for this am. PAPERBACK MACHINE OPERATOR tasked to sebd DC orders/MAR. Tweng[facility] [employer] 08-16-2024 History of Present illness Narrative Hospitalist Progress Note 08/16/2024 Subjective: Admit Date: 08/03/2024 PCP: Jared Evans MD Room#: [id number] A BRIEF HOSPITAL COURSE: Mel is a 83 y.o. female with past medical history below who presents with chief complaint listed above.Patient is an 83 y/o female who presented to [facility] early this AM [place] and [place]. Patient reported she [...] kidney disease COPD (chronic obstructive pulmonary disease) ([facility]) DVT (deep venous thrombosis) ([facility]) Essential hypertension 03/07/2020 GERD (gastroesophageal reflux disease) Hiatal hernia IBS (irritable bowel syndrome) Pure hypercholesterolemia 03/07/2020 PVD (peripheral vascular disease) ([facility]) Stroke ([facility]) LABS: CBC: No results for [...] Contact Information Primary Emergency Contact: José Miguel Bradford/ Fidel Mobile Relation: Mother Secondary Emergency Contact: Anum Villafana DO NOT CALL-TERMINALLY ILL Mobile Relation: Friend Devika Escobar MD Division of Hospitalist Medicine [facility] Hospitalist Progress Note 08/15/2024 Subjective: Admit Date: 08/03/2024 PCP: Jared Evans MD Room#: [id number] A BRIEF HOSPITAL COURSE: Mel is a 83 y.o. female with past medical history below who presents with chief complaint listed above.Patient is an 83 y/o female who presented to [facility] early this AM [place] and [place]. Patient reported she [...] Pure hypercholesterolemia 03/07/2020 PVD (peripheral vascular disease) ([facility]) Stroke ([facility]) LABS: CBC: No results for [...] Contact Information Primary Emergency Contact: José Miguel Bradford/ Fidel Mobile Relation: Mother Secondary Emergency Contact: Anum Villafana DO NOT CALL-TERMINALLY ILL Mobile Relation: Friend Devika Escobar MD Division of Hospitalist Medicine [facility] Images from the original note were not included. PHYSICAL THERAPY [facility] Treatment Note Name/MRN: Mel Pop ([id number]) Date of : 1940 Age: 83 y.o. 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 [...] 45ft x 2 Quality of gait: slow marianne, requires assistance for steering device around turns [...] Goal: keep getting up, get back to [facility]. Encounter Problems Encounter Problems (Active) Balance Patient [...] original note were not included. OCCUPATIONAL THERAPY [facility] Treatment Note Name/MRN: Mel Pop ([id number]) Date of : 1940 Age: 83 y.o. [facility] Discharge Recommendation: Group Home Facility Prior Level of Function Prior Level [...] 24/7 assist, home health OT and home delivery driver. Pt. ( Who is totally BLIND), Would due better receiving therapy in her home due to familiar environment. If she can not get 24/7 assist at home then [place] Subjective Pt. Remains in her recliner eating [...] Date: 08/03/2024 PCP: Jared Evans MD Room#: [id number] A BRIEF HOSPITAL COURSE: Mel is a 83 y.o. female with past medical history below who presents with chief complaint listed above.Patient is an 83 y/o female who presented to [facility] early this AM [place] and [place]. Patient reported she [...] IVF dc/d and on regular diet - LROENZA resolved - passed bedside swallow Cont eye [...] Contact Information Primary Emergency Contact: José Miguel Bradford/ Fidel Mobile Relation: Mother Secondary Emergency Contact: Anum Villafana DO NOT CALL-TERMINALLY ILL Mobile Relation: Friend Devika Escobar MD Division of Hospitalist Medicine [facility] Hospitalist Progress Note 08/13/2024 Subjective: Admit Date: 08/03/2024 PCP: Jared Evans MD Room#: [id number] A BRIEF HOSPITAL COURSE: Mel is a 83 y.o. female with past medical history below who presents with chief complaint listed above.Patient is an 83 y/o female who presented to [facility] early [place]. Patient reported she [...] pulmonary disease) (HCC) DVT (deep venous thrombosis) ([facility]) Essential hypertension 03/07/2020 GERD (gastroesophageal reflux disease) Hiatal hernia IBS (irritable bowel syndrome) Pure hypercholesterolemia 03/07/2020 PVD (peripheral vascular disease) ([facility]) Stroke ([facility]) LABS: CBC: No results for [...] Contact Information Primary Emergency Contact: José Miguel Bradford/ Fidel Mobile Relation: Mother Secondary Emergency Contact: Anum Villafana DO NOT CALL-TERMINALLY ILL Mobile Relation: Friend Kael Hayward DO Division of Hospitalist Medicine [facility] Nutrition Assessment Type and Reason for [...] No significant fluid accumulation (per flow sheets) Press Breaker Strength: Not Performed Nutrition Assessment: 83 y.o. [...] On: Kcal/kg Weight Used for Energy Requirements: [place] Weight for Energy Calculation (kg): 54 kg Total Energy Requirements (kcals/day): 3811-7590 Weight Used for Protein Requirements: [place] Weight in Kg Used for Protein Requirements: [...] 160# 07/05) % Weight Change (Calculated): 12.2 [place] Body Weight (lbs) (Calculated): 119 lbs [place] Body Weight (Kg) (Calculated): 54 kg BMI [...] soon to determine Janki Fields RD Contact: *[phone] Hospitalist Progress Note 08/12/2024 Subjective: Admit Date: 08/03/2024 PCP: Jared Evans MD Room#: [id number] A BRIEF HOSPITAL COURSE: Mel is a 83 y.o. female with past medical history below who presents with chief complaint listed above.Patient is an 83 y/o female who presented to [facility] early [place] and [place]. Patient reported she [...] pulmonary disease) (HCC) DVT (deep venous thrombosis) ([facility]) Essential hypertension 03/07/2020 GERD (gastroesophageal reflux disease) Hiatal hernia IBS (irritable bowel syndrome) Pure hypercholesterolemia 03/07/2020 PVD (peripheral vascular disease) ([facility]) Stroke ([facility]) LABS: CBC: No results for [...] following mgmt was pursued: - completed ABX 1/21 (total 5 days per abx stewardship) - [...] Contact Information Primary Emergency Contact: José Miguel Bradford/ Fidel Mobile Relation: Mother Secondary Emergency Contact: Anum Villafana DO NOT CALL-TERMINALLY ILL Mobile Relation: Friend Kael Hayward DO Division of Hospitalist Medicine [facility] Hospitalist Progress Note 08/11/2024 Subjective: Admit Date: 08/03/2024 PCP: Jared Evans MD Room#: [id number] A BRIEF HOSPITAL COURSE: Mel is a 83 y.o. female with past medical history below who presents with chief complaint listed above.Patient is an 83 y/o female who presented to [facility] early this [place] and [place]. Patient reported she [...] return to SNF. auth obtained to SNF 1/23. Discharge placed and transportation set, but daughter [...] Contact Information Primary Emergency Contact: José Miguel Bradford/ Fidel Mobile Relation: Mother Secondary Emergency Contact: Ida Villafanae NOT CALL-TERMINALLY ILL Mobile Relation: Friend Kael Hayward DO Division of Hospitalist Medicine [facility] Hospitalist Progress Note 08/10/2024 Subjective: Admit Date: 08/03/2024 PCP: Jared Evans MD Room#: [id number] A BRIEF HOSPITAL COURSE: Mel is a 83 y.o. female with past medical history below who presents with chief complaint listed above.Patient is an 83 y/o female who presented to [facility] early this AM [place] and [place]. Patient reported she [...] Pure hypercholesterolemia 03/07/2020 PVD (peripheral vascular disease) ([facility]) Stroke ([facility]) LABS: CBC: No results for [...] Contact Information Primary Emergency Contact: José Miguel Bradford/ Fidel Mobile Relation: Mother Secondary Emergency Contact: Anum Villafana DO NOT CALL-TERMINALLY ILL Mobile Relation: Friend Kael Hayward DO Division of Hospitalist Medicine [facility] Hospitalist Progress Note 08/09/2024 Subjective: Admit Date: 08/03/2024 PCP: Jared Evans MD Room#: [id number] A BRIEF HOSPITAL COURSE: Mel is a 83 y.o. female with past medical history below who presents with chief complaint listed above.Patient is an 83 y/o female who presented to [facility] early [place]. Patient reported she [...] Pure hypercholesterolemia 03/07/2020 PVD (peripheral vascular disease) ([facility]) Stroke (HCC) LABS: CBC: No results for [...] Extended Emergency Contact Information Primary Emergency Contact: BradfordJosé Miguel/ Fidel Mobile Relation: Mother Secondary Emergency Contact: Anum Villafana DO NOT CALL-TERMINALLY ILL Mobile Relation: Friend Kael Hayward DO [facility] Images from the original note were not included. OCCUPATIONAL THERAPY [facility] Initial Evaluation Name/MRN: Mel Pop ([id number]) Evaluation Date: 08/08/2024 Date of : 1940 Admission Date: 08/03/2024 2:22 AM Age: 83 y.o. [facility] A Discharge Recommendation: Group Home Facility Assessment IMPRESSION: Pt would benefit from [...] Pure hypercholesterolemia 03/07/2020 PVD (peripheral vascular disease) ([facility]) Stroke ([facility]) Past Surgical History: Past Surgical History: Procedure Laterality Date ANKLE SURGERY ARM SURGERY (HISTORICAL) Right COLONOSCOPY ESOPHAGEAL DILATION EYE SURGERY 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 HYSTERECTOMY ORTHOPEDIC SURGERY THROMBECTOMY Right 04/06/2024 RLE mechanical thrombectomy ([facility]) Admission Diagnosis: Patient Active Problem List Diagnosis Date Noted Aspiration pneumonitis ([facility]) ([facility]) 08/03/2024 Visual disturbance, subjective 07/06/2024 Retinal detachment, right 07/05/2024 Vision loss of right eye 07/05/2024 Acute venous embolism and thrombosis of deep vessels of proximal lower extremity ([facility]) 04/14/2024 Peripheral arterial disease ([facility]) 04/03/2024 Immunodeficiency due to conditions classified elsewhere ([facility]) 07/27/2023 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 ([facility]) 07/27/2023 Bilateral pneumonia 06/16/2022 COVID-19 06/16/2022 Hypothyroidism 06/16/2022 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[facility]) 06/16/2022 Cellulitis 05/18/2022 Nicotine use disorder 05/18/2022 Acute venous embolism and thrombosis of deep vessels of proximal end of right lower extremity ([facility]) 04/19/2024 Atrial fibrillation, unspecified type ([facility]) 04/19/2024 Irritable bowel syndrome with diarrhea 03/07/2020 Microscopic hematuria 03/07/2020 Left retinal detachment 03/07/2020 Hyperglycemia 03/07/2020 Osteopenia of left femoral neck 03/07/2020 medical terminologist current use of anticoagulant therapy 03/07/2020 Seasonal allergies 03/07/2020 Chronic renal insufficiency, stage III (moderate) ([facility]) 03/07/2020 Major depression, single episode, in complete remission ([facility]) 03/07/2020 Gastroesophageal reflux disease without esophagitis 03/07/2020 Essential hypertension 03/07/2020 Pure hypercholesterolemia 03/07/2020 Overweight 03/07/2020 Psoriasis 03/07/2020 History of cerebrovascular accident 03/07/2020 Atrial fibrillation ([facility]) 03/07/2020 Chronic obstructive pulmonary disease ([facility]) 03/07/2020 Finger osteomyelitis, right ([facility]) 03/06/2020 Medical Precautions: Enhanced Contact [...] of Care supervision is transferred to a [facility] Therapy Services Occupational Therapist. Goals and/or treatment plan was established in collaboration with patient/family/other representatives. Shannon Fernandez MS, OTR/L Images from the original note were not included. PHYSICAL THERAPY [facility] Treatment Note Name/MRN: Mel Pop ([id number]) Date of : 1940 Age: 83 y.o. [facility] A Discharge Recommendation: Group Home Facility Equipment Needed: (pt uses [employer] ELECTRIC TRUCK CRANE OPERATOR) Prior Level of Function Prior Level of [...] Distance (ft): 50 Quality of gait: slow marianne, v/c's for direction, SOB upon ambulation. Gaitbelt [...] Goal: keep getting up, get back to [facility]. Encounter Problems Encounter Problems (Active) Balance Patient [...] Date: 08/03/2024 PCP: Jared Evans MD Room#: [id number] A BRIEF HOSPITAL COURSE: Mel is a 83 y.o. female with past medical history below who presents with chief complaint listed above.Patient is an 83 y/o female who presented to [facility] early [place] and [place]. Patient reported she [...] pulmonary disease) (HCC) DVT (deep venous thrombosis) ([facility]) Essential hypertension 03/07/2020 GERD (gastroesophageal reflux disease) Hiatal hernia IBS (irritable bowel syndrome) Pure hypercholesterolemia 03/07/2020 PVD (peripheral vascular disease) ([facility]) Stroke ([facility]) LABS: CBC: Recent Labs 08/05/24 [...] Contact Information Primary Emergency Contact: José Miguel Bradford/ Fidel Mobile Relation: Mother Secondary Emergency Contact: VasughassanAnum NOT CALL-TERMINALLY ILL Mobile Relation: Friend Kael Hayward DO Division of Hospitalist Medicine [facility] Hospitalist Progress Note 08/07/2024 Subjective: Admit Date: 08/03/2024 PCP: Jared Evans MD Room#: [id number]/[id number] A BRIEF HOSPITAL COURSE: Mel is a 83 y.o. female with past medical history below who presents with chief complaint listed above.Patient is an 83 y/o female who presented to [facility] early this [place] and [place]. Patient reported she [...] 100 mL/hr, Last Rate: 100 mL/hr (08/06/24 0774) Assessment Data: Acute, acute on chronic, unstable/uncontrolled [...] Contact Information Primary Emergency Contact: José Miguel Bradford/ Fidel Mobile Relation: Mother Secondary Emergency Contact: Anum Villafana DO NOT CALL-TERMINALLY ILL Mobile Relation: Friend Kael Hayward DO Division of Hospitalist Medicine [employer] Hospitalist Progress Note 08/06/2024 Subjective: Admit Date: 08/03/2024 PCP: Jared Evans MD Room#: [id number]/[id number] A BRIEF HOSPITAL COURSE: Mel is a 83 y.o. female with past medical history below who presents with chief complaint listed above.Patient is an 83 y/o female who presented to [facility] early this AM [place]. Patient reported she [...] pulmonary disease) (HCC) DVT (deep venous thrombosis) ([facility]) Essential hypertension 03/07/2020 GERD (gastroesophageal reflux disease) Hiatal hernia IBS (irritable bowel syndrome) Pure hypercholesterolemia 03/07/2020 PVD (peripheral vascular disease) ([facility]) Stroke ([facility]) LABS: CBC: Recent Labs 08/04/24 0447 08/05/24 [...] Contact Information Primary Emergency Contact: José Miguel Bradford/ Fidel Mobile Relation: Mother Secondary Emergency Contact: Anum Villafana DO NOT CALL-TERMINALLY ILL Mobile Relation: Friend Kayden Tatum MD Division of Hospitalist Medicine [facility] Images from the original note were not included. PHYSICAL THERAPY [facility] Initial Evaluation Name/MRN: Mel Pop ([id number]) Evaluation Date: 08/06/2024 Date of : 1940 Admission Date: 08/03/2024 2:22 AM Age: 83 y.o. Room[facility]Bed: [facility] A Discharge Recommendation: Group Home Facility (pt from SNF at baseline) Equipment Needed: (pt uses [facility] ELECTRIC TRUCK CRANE OPERATOR) Assessment IMPRESSION: Pt's Vincent scoring has varied [...] to SNF-level care (pt was receiving PT ELECTRIC TRUCK CRANE OPERATOR) Admitting Diagnosis: aspiration pneumonitis, + Norovirus. S/p [...] SURGERY THROMBECTOMY Right 04/06/2024 RLE mechanical thrombectomy ([facility]) Admission Diagnosis: Patient Active Problem List Diagnosis Date Noted Aspiration pneumonitis ([facility]) (HCC) 08/03/2024 Visual disturbance, subjective 07/06/2024 Retinal detachment, right 07/05/2024 Vision loss of right eye 07/05/2024 Acute venous embolism and thrombosis of deep vessels of proximal lower extremity ([facility]) 04/14/2024 Peripheral arterial disease ([facility]) 04/03/2024 Immunodeficiency due to conditions classified elsewhere ([facility]) 07/27/2023 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 ([facility]) 07/27/2023 Bilateral pneumonia 06/16/2022 COVID-19 06/16/2022 Hypothyroidism 06/16/2022 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[facility]) 06/16/2022 Cellulitis 05/18/2022 Nicotine use disorder 05/18/2022 Acute venous embolism and thrombosis of deep vessels of proximal end of right lower extremity ([facility]) 04/19/2024 Atrial fibrillation, unspecified type ([facility]) 04/19/2024 Irritable bowel syndrome with diarrhea 03/07/2020 Microscopic hematuria 03/07/2020 Left retinal detachment 03/07/2020 Hyperglycemia 03/07/2020 Osteopenia of left femoral neck 03/07/2020 intermediate current use of anticoagulant therapy 03/07/2020 Seasonal allergies 03/07/2020 Chronic renal insufficiency, stage III (moderate) ([facility]) 03/07/2020 Major depression, single episode, in complete remission ([facility]) 03/07/2020 Gastroesophageal reflux disease without esophagitis 03/07/2020 Essential hypertension 03/07/2020 Pure hypercholesterolemia 03/07/2020 Overweight 03/07/2020 Psoriasis 03/07/2020 History of cerebrovascular accident 03/07/2020 Atrial fibrillation ([facility]) 03/07/2020 Chronic obstructive pulmonary disease ([facility]) 03/07/2020 Finger osteomyelitis, right ([facility]) 03/06/2020 Medical Precautions: Enhanced Contact [...] OD Hearing: normal Social/Functional History Resident at [facility] at baseline. Goes to therapy and [...] Goal: keep getting up, get back to [facility]. Encounter Problems Encounter Problems (Active) Balance Patient [...] of Care supervision is transferred to a [facility] Physical Therapist. Goals and/or treatment plan was established in collaboration with patient/family/other representatives. Hospitalist Progress Note 08/05/2024 Subjective: Admit Date: 08/03/2024 PCP: Jared Evans MD Room#: [id number]/[id number] A BRIEF HOSPITAL COURSE: Mel is a 83 y.o. female with past medical history below who presents with chief complaint listed above.Patient is an 83 y/o female who presented to [facility] early [place]. Patient reported she [...] kidney disease COPD (chronic obstructive pulmonary disease) ([facility]) DVT (deep venous thrombosis) ([facility]) Essential hypertension 03/07/2020 GERD (gastroesophageal reflux disease) Hiatal hernia IBS (irritable bowel syndrome) Pure hypercholesterolemia 03/07/2020 PVD (peripheral vascular disease) ([facility]) Stroke ([facility]) LABS: CBC: Recent Labs 08/03/24 0251 08/04/247 [...] Fidel Mobile Relation: Mother Secondary Emergency Contact: Anum Villafana DO NOT CALL-TERMINALLY ILL Mobile Relation: Friend Kayden Tatum MD Division of Hospitalist Medicine [facility] Images from the original note were not included. PHYSICAL THERAPY [facility] Name/MRN: Mel Pop ([id number]) Date: 08/05/2024 PT orders received per Vincent [...] an 83 y/o female who presented to [facility] early this [place] and [place]. Patient reported she [...] kidney disease COPD (chronic obstructive pulmonary disease) ([facility]) DVT (deep venous thrombosis) ([facility]) Essential hypertension 03/07/2020 GERD (gastroesophageal reflux disease) Hiatal hernia IBS (irritable bowel syndrome) Pure hypercholesterolemia 03/07/2020 PVD (peripheral vascular disease) ([facility]) Stroke ([facility]) LABS: CBC: Recent Labs 08/03/24 [...] Fidel Mobile Relation: Mother Secondary Emergency Contact: Anum Villafana DO NOT CALL-TERMINALLY ILL Mobile Relation: Friend Kayden Tatum MD Division of Hospitalist Medicine [facility] documented in this encounter [facility] 08-15-2024 Plan of care note Problem: Knowledge [...] My discharge needs are met Outcome: Progressing [facility] 08-15-2024 Note Formatting of this n ote might be different from the original. Authorization is pending with [employer]. Ref# [id number] to be DC'd to [facility]. Dtr Fidel Updated. CM to follow. [facility] 08-15-2024 Note Formatting of this n ote might be different from the original. Authorization is pending with [employer]. Ref# [id number] to be DC'd to [facility]. Dtr Fidel Updated. CM to follow. [facility] 08-15-2024 Note Patient progressing toward all goals. [facility] 08-15-2024 Plan of care note Patient progressing toward all goals. [facility] 08-14-2024 Plan of care note Problem: [...] My discharge needs are met Outcome: Progressing [facility] [employer] 08-14-2024 Hospital Discharge instructions Devika Escobar MD [...] Order: DNR-CCA Advance Directives: N Admitting Physician: Gregg Parrish MD PCP: Jared Evans MD Discharging Nurse: Cici Perez Discharging Hospital Unit/Room#: [id number]/[id number] A Discharging Unit Emergency Contact: Extended Emergency Contact Information Primary Emergency Contact: Maxwell Bradfordjoe/ Fidel Mobile Relation: Mother Secondary Emergency Contact: Anum Villafana DO NOT CALL-TERMINALLY ILL Mobile Relation: Friend Past Surgical History: Past Surgical History: Procedure Laterality Date ANKLE SURGERY ARM SURGERY (HISTORICAL) Right COLONOSCOPY ESOPHAGEAL DILATION EYE SURGERY 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 HYSTERECTOMY ORTHOPEDIC SURGERY THROMBECTOMY Right 04/06/2024 RLE mechanical thrombectomy ([facility]) Immunization History: Immunization History Administered Date(s) Administered [...] detachment Hyperglycemia Osteopenia of left femoral neck intermediate current use of anticoagulant therapy Seasonal allergies [...] assistance Toileting Total assistance Feeding Minimal assistance Bit Welder Minimal assistance Med Delivery yes Wound Care [...] Date: 08/03/2024 Discharging to Facility/ Agency Name: [facility] Address: [address] [place] [address] Fax: Dialysis Facility (if applicable) Name: [facility] Address: Dialysis Schedule: Phone: Fax: Supervisor [employer]/Carbonizer signature: ICIAN SECTION Name: Mel Pop Prognosis: good Condition at Discharge: stable Rehab Potential (if transferring to Rehab): good Recommended Labs or Other Treatments After Discharge: none The individual is being admitted to a nursing facility directly from an [facility] or a unit of a [facility] that is not operated by or licensed by [facility] under section 5119.14 or 5160-3-15.1 5 The individual requires the level of services provided by a nursing facility for the condition for which he or she was treated in the hospital and, Physician Certification: I certify the above information and transfer of Mel Pop is necessary for the continuing treatment of the diagnosis listed and that she requires prison facility for less than 30 days. Update Admission H&P: No change in H&P PHYSICIAN SIGNATURE: documented in this encounter [facility] 08-14-2024 Note Formatting of this n ote might be different from the original. Pt has Been accepted to [facility]. Need PT/OT to see so auth to be started. Therapy to see today was sent. Called and spoke with braxton [facility]ozo. SNF tasked w update. CM to follow. [facility] 08-14-2024 Note Formatting of this n ote might be different from the original. Pt has Been accepted to [facility]. Need PT/OT to see so auth to be started. Therapy to see today was sent. Called and spoke with braxton [facility]. SNF tasked w update. CM to follow. [facility] 08-13-2024 Plan of care note Problem: [...] My discharge needs are met Outcome: Progressing [facility] 08-13-2024 Note Formatting of this n ote might be different from the original. Referral [facility] request. Await review and response regarding ability to accept. TCC notified. Electronically signed by Christine Morataya [facility], 08-13-2024 at 3:00 PM [facility] 08-13-2024 Note Formatting of this n ote might be different from the original. Referral placed to [facility] via [facility] per TCC request. Await review and response regarding ability to accept. TCC notified. Electronically signed by Christine Morataya CMA, 08-13-2024 at 3:00 PM [facility] 08-13-2024 Note Referral placed to [facility] request. Await review and response regarding ability to accept. TCC notified. Electronically signed by Christine Morataya CMA, 08-13-2024 at 3:00 PM [facility] 08-13-2024 Note Formatting of this n ote might be different from the original. Called dgt to talk about dc planning. Dgt continues to tour SNFs this evening, since she was sick this weekend. Provided me with two more SNF choices. [facility]. Tasked [facility] to create these referrals. CM to follow. [facility] 08-13-2024 Note Formatting of this n ote might be different from the original. Called dgt to talk about dc planning. Dgt continues to tour SNFs this evening, since she was sick this weekend. Provided me with two more SNF choices. [facility]. Tasked [facility] to create these referrals. CM to follow. [facility] 08-13-2024 Plan of care note Problem: [...] My discharge needs are met Outcome: Progressing [facility] 08-12-2024 Note Problem: Knowledge D eficit Goal: Patient/family/caregiver demonstrates understanding of disease process, treatment plan, medications, and discharge instructions Outcome: Progressing [facility] 08-12-2024 Plan of care note Problem: Knowledge Deficit Goal: Patient/family/caregiver demonstrates understanding of disease process, treatment plan, medications, and discharge instructions Outcome: Progressing [facility] [employer] 08-12-2024 Plan of care note Problem: Knowledge [...] My discharge needs are met Outcome: Progressing [facility] [employer] 08-11-2024 Plan of care note Problem: Knowledge [...] My discharge needs are met Outcome: Progressing [employer] 08-11-2024 Note Formatting of this n ote might be different from the original. CM noted DC orders in place, Dgt touring facilities over the weekend. [facility] pending acceptance, updates sent via [facility]. [facility] [employer] 08-11-2024 Note Formatting of this n ote might be different from the original. CM noted DC orders in place, Dgt touring facilities over the weekend. [facility] pending acceptance, updates sent via [facility]. [facility] 08-11-2024 Plan of care note Problem: [...] Interventions Goal: Assess Nutritional Intake Outcome: Progressing [facility] 08-10-2024 Note Formatting of this n ote might be different from the original. Referral placed to [facility] via [facility] per TCC request. Await review and response regarding ability to accept. TCC notified. Electronically signed by Christine Morataya [facility], 08-10-2024 at 9:23AM [facility] 08-10-2024 Note Formatting of this n ote might be different from the original. Referral placed to [facility] via [facility] per TCC request. Await review and response regarding ability to accept. TCC notified. Electronically signed by Christine Morataya CMA, 08-10-2024 at 9:23AM [facility] 08-10-2024 Note Referral placed to [facility] via [facility] per TCC request. Await review and response regarding ability to accept. TCC notified. Electronically signed by Christine Morataya CMA, 08-10-2024 at 9:23AM [facility] 08-10-2024 Note Formatting of this n ote might be different from the original. Pt was to be DC to [facility]. Found out pt and dtr didn't want to return to [facility]. SNF was made aware. On adm spoke with Dtr Fidel, ok to return. Called Dtr this am, after speaking with pt and things that happened and didn't happen. Fidel requesting a referral to be made to [facility]. PAPERBACK MACHINE OPERATOR tasked to send. A SNF list was emailed to [email or web address]. She will tour facilities over weekend. CM to follow. [facility] 08-10-2024 Note Formatting of this n ote might be different from the original. Pt was to be DC to [facility]. Found out pt and dtr didn't want to return to [facility]. SNF was made aware. On adm spoke with Dtr Fidel, ok to return. Called Dtr this am, after speaking with pt and things that happened and didn't happen. Fidel requesting a referral to be made to [facility]. [facility] tasked to send. A SNF list was emailed to [email or web address]. She will tour facilities over weekend. CM to follow. [facility] 08-10-2024 Plan of care note Problem: [...] Interventions Goal: Assess Nutritional Intake Outcome: Progressing [facility] 08-09-2024 Note Formatting of this n ote might be different from the original. Discharge summary and med list sent via [facility] to [facility] per [facility] request. [facility] 08-09-2024 Note Formatting of this n ote might be different from the original. Discharge summary and med list sent via [facility] to [facility] per TCC request. [facility] 08-09-2024 Note Discharge summary an d med list sent via [facility] to [facility] per [facility] request. [facility] 08-09-2024 Note Formatting of this n ote might be different from the original. Auth received. Patient with active dc orders. Transportation arranged through [employer] with estimated pickle cutter time of 1930. VM left with daughter Fidel along with 3N phone number to call with questions. Bedside RN aware. Facility updated. PAPERBACK MACHINE OPERATOR yarding supervisor sent orders to [facility]. [facility] 08-09-2024 Note Formatting of this n ote might be different from the original. Auth received. Patient with active dc orders. Transportation arranged through [employer] with estimated pickle cutter time of 1930. VM left with daughter Fidel along with 3N phone number to call with questions. Bedside RN aware. Facility updated. [facility] yarding supervisor sent orders to [facility]. [facility] 08-09-2024 Note Formatting of this n ote might be different from the original. salon manager was asked to assist with setting up transport back to [facility] this evening. primary special education teacher had already done so, but this manager lean called daughter to inform her of discharge and transport set up. Daughter did not wish patient to return to the SNF. South Asian History Professor told her that patient is medically stable for dc and that she should continue the discussion with the social worker psychiatric and linux network administrator at The snf, and also get options from [employer]. Coordinator was to message the snf about return this evening via [facility]. [facility] 08-09-2024 Note Formatting of this n ote might be different from the original. salon manager was asked to assist with setting up transport back to [facility] this evening. primary special education teacher had already done so, but this manager lean called daughter to inform her of discharge and transport set up. Daughter did not wish patient to return to the SNF. South Asian History Professor told her that patient is medically stable for dc and that she should continue the discussion with the social worker psychiatric and linux network administrator at The snf, and also get options from [employer]. Coordinator was to message the snf about return this evening via [facility]. [facility] 08-09-2024 Note [facility] 08-09-2024 Hospital course Narrative Hospitalist Discharge Summary Mel Pop : 1940 Admit date: 08/03/2024 Discharge date: 08/09/2024 Admitting Physician: Gregg Parrish MD Primary Care Physician: Jared Evans [...] an 83 y/o female who presented to [facility] [place]. Patient reported she [...] Ellipta 100-62.5-25 MCG/ACT aerosol powder Generic drug: Sahaxiruwxz-Cqzgsrevw-Wsnhak STOP taking these medications enoxaparin 80 MG/0.8ML [...] Complexity: follow up within 7-14 calendar days (43758) [x] Severe Complexity: follow up within 7 calendar days (67699) Follow up Testing, Pending results or Referrals [...] within the above time frame. Signed: Kael Hayward DO Division of Hospitalist Medicine [facility] 08/09/2024, 4:23 PM documented in this encounter [facility] 08-09-2024 Note Formatting of this n ote might be different from the original. Updated PT/OT notes placed to [facility] via [facility] per TCC request. Await review and response regarding ability to accept. TCC notified. [facility] 08-09-2024 Note Formatting of this n ote might be different from the original. Updated PT/OT notes placed to [facility] via [facility] per TCC request. Await review and response regarding ability to accept. TCC notified. Electronically signed by [facility] Aracelis Gardiner [facility] 08-09-2024 Note Formatting of this n ote might be different from the original. Patient is medically ready for dc. PT/OT both continuing to recommend SNF. PAPERBACK MACHINE OPERATOR manager lean asked to start auth. Plan to dc back to [facility] pending auth [facility] 08-09-2024 Note Formatting of this n ote might be different from the original. Patient is medically ready for dc. PT/OT both continuing to recommend SNF. PAPERBACK MACHINE OPERATOR manager lean asked to start auth. Plan to dc back to [facility] pending auth [facility] 08-08-2024 Note Formatting of this n [...] Dc'd to [facility]. CM to follow. [employer] 08-08-2024 Note Formatting of this n ote [...] Dc'd to [facility]. CM to follow. [employer] 08-07-2024 Plan of care note Problem: Knowledge Deficit Goal: Patient/family/caregiver demonstrates understanding of disease process, treatment plan, medications, and discharge instructions Outcome: Progressing Problem: Potential for Compromised Skin Integrity Goal: Skin Integrity is Maintained or Improved Outcome: Progressing Goal: Nutritional status is improving Outcome: Progressing [employer] 08-07-2024 Plan of care note Problem: Knowledge [...] Interventions Goal: Assess Nutritional Intake Outcome: Progressing [employer] 08-07-2024 Note Formatting of this n ote might be different from the original. Case Management Progress Note: Patient remains on 5N for concern with aspiration 2/2 vomiting. Discharge Plan: Return to [facility]. Therapy eval needed for precert. TCC to assist and follow as needed. [facility] [employer] 08-07-2024 Note Formatting of this n ote might be different from the original. Case Management Progress Note: Patient remains on 5N for concern with aspiration 2/2 vomiting. Discharge Plan: Return to [facility]. Therapy eval needed for precert. TCC to assist and follow as needed. [facility] [employer] 08-07-2024 Plan of care note Problem: Knowledge [...] Interventions Goal: Assess Nutritional Intake Outcome: Progressing [facility] [employer] 08-06-2024 Plan of care note Problem: Knowledge [...] Interventions Goal: Assess Nutritional Intake Outcome: Progressing [facility] [employer] 08-06-2024 Note Formatting of this n ote might be different from the original. Pt cont's on IV AtBs'. Plan is for pt to return to [facility]. Auth and HECTOR needed prior to DC. CM to follow. [facility] [employer] 08-06-2024 Note Formatting of this n ote might be different from the original. Pt cont's on IV AtBs'. Plan is for pt to return to [facility]. Auth and HECTOR needed prior to DC. CM to follow. [facility] [employer] 08-06-2024 Note Formatting of this n ote might be different from the original. Per attending pt ready for DC. Pt will return to [facility]. Pt needs PT/OT to start auth Therapy to see put in for alistair so auth can be started. HECTOR will need completed. CM to follow. [facility] [employer] 08-06-2024 Note Formatting of this n ote might be different from the original. Per attending pt ready for DC. Pt will return to [facility]. Pt needs PT/OT to start auth Therapy to see put in for alistair so auth can be started. HECTOR will need completed. CM to follow. [facility] [employer] 08-06-2024 Consult note Associated Order (s): IP [...] assess Fluid Accumulation: No significant fluid accumulation Press Breaker Strength: Not Performed Nutrition Assessment: Pt hx HTN, stroke, COPD, CKD, IBS. Admitted w/ vomiting and diarrhea. +norovirus. Started on abx for concern of aspiration pna. Pt's symptoms have improved during admission. Consuming and tolerating CLD. Medically stable for discharge back to SNF per notes. Estimated Daily Nutrient Needs: Energy Requirements Based On: Kcal/kg Weight Used for Energy Requirements: [place] Weight for Energy Calculation (kg): 54 kg Total Energy Requirements (kcals/day): 2479-0112 Weight Used for Protein Requirements: [place] Weight in Kg Used for Protein Requirements: [...] 160# 07/05) % Weight Change (Calculated): 12.2 [place] Body Weight (lbs) (Calculated): 119 lbs [place] Body Weight (Kg) (Calculated): 54 kg BMI [...] Weight Discharge Planning: Too soon to determine Ely Michelle RD, LD Contact: [phone] [facility] 08-06-2024 Consult note Associated Order (s): [...] assess Fluid Accumulation: No significant fluid accumulation Press Breaker Strength: Not Performed Nutrition Assessment: Pt hx HTN, stroke, COPD, CKD, IBS. Admitted w/ vomiting and diarrhea. +norovirus. Started on abx for concern of aspiration pna. Pt's symptoms have improved during admission. Consuming and tolerating CLD. Medically stable for discharge back to SNF per notes. Estimated Daily Nutrient Needs: Energy Requirements Based On: Kcal/kg Weight Used for Energy Requirements: [place] Weight for Energy Calculation (kg): 54 kg Total Energy Requirements (kcals/day): 0207-6136 Weight Used for Protein Requirements: [place] Weight in Kg Used for Protein Requirements: 54 kg Estimated Total Protein (g/day): 54-65 Estimated Daily Total Fluid (ml/day): per Nutrition Related Findings: +BS. No edema. +I&O. [...] 160# 07/05) % Weight Change (Calculated): 12.2 [place] Body Weight (lbs) (Calculated): 119 lbs [place] Body Weight (Kg) (Calculated): 54 kg BMI [...] Weight Discharge Planning: Too soon to determine Ely Michelle RD, LD Contact: [phone] documented in this encounter [facility] 08-06-2024 Plan of care note Problem: Knowledge Deficit Goal: Patient/family/caregiver demonstrates understanding of disease process, treatment plan, medications, and discharge instructions Outcome: Progressing Problem: Potential for Compromised Skin Integrity Goal: Skin Integrity is Maintained or Improved Outcome: Progressing Goal: Nutritional status is improving Outcome: Progressing Problem: Urinary Incontinence Goal: Perineal skin integrity is maintained or improved Outcome: Progressing [facility] 08-05-2024 Plan of care note Problem: Knowledge Deficit Goal: Patient/family/caregiver demonstrates understanding of disease process, treatment plan, medications, and discharge instructions Outcome: Progressing Problem: Potential for Compromised Skin Integrity Goal: Skin Integrity is Maintained or Improved Outcome: Progressing Goal: Nutritional status is improving Outcome: Progressing Problem: Urinary Incontinence Goal: Perineal skin integrity is maintained or improved Outcome: Progressing [facility] 08-04-2024 Plan of care note Problem: Knowledge Deficit Goal: Patient/family/caregiver demonstrates understanding of disease process, treatment plan, medications, and discharge instructions Outcome: Progressing Problem: Potential for Compromised Skin Integrity Goal: Skin Integrity is Maintained or Improved Outcome: Progressing Goal: Nutritional status is improving Outcome: Progressing Problem: Urinary Incontinence Goal: Perineal skin integrity is maintained or improved Outcome: Progressing [facility] 08-04-2024 Nurse Note Bedside swallow completed. Pt passed and tolerated well tolerated well. [facility] 08-04-2024 Plan of care note Problem: Knowledge Deficit Goal: Patient/family/caregiver demonstrates understanding of disease process, treatment plan, medications, and discharge instructions Outcome: Progressing Problem: Potential for Compromised Skin Integrity Goal: Skin Integrity is Maintained or Improved Outcome: Progressing Goal: Nutritional status is improving Outcome: Progressing Problem: Urinary Incontinence Goal: Perineal skin integrity is maintained or improved Outcome: Progressing [facility] 08-03-2024 Plan of care note Problem: [...] 0842 by Lima Saenz RN Outcome: Progressing [facility] 08-03-2024 Note Formatting of this n ote might be different from the original. Return referral placed to [facility] via [facility] per TCC request. Await review and response regarding ability to accept. TCC notified. [facility] 08-03-2024 Note Formatting of this n ote might be different from the original. Return referral placed to [facility] via [facility] per TCC request. Await review and response regarding ability to accept. TCC notified. [facility] 08-03-2024 Note Return referral plac ed to [facility] via [facility] per [facility] request. Await review and response regarding ability to accept. TCC notified. [facility] 08-03-2024 Note Formatting of this n ote might be different from the original. Pt to ED w N/V/Diarrhea, was Dx w Aspiration pneumonitis. Started on IV ATB's. Called pt's Dtr, Fidel, . Pt is from [facility]. Plan on returning. [facility] tasked to send a return referral. [facility] 08-03-2024 Note Formatting of this n ote might be different from the original. Pt to ED w N/V/Diarrhea, was Dx w Aspiration pneumonitis. Started on IV ATB's. Called pt's Dtr, Fidel, . Pt is from [facility]. Plan on returning. [facility] tasked to send a return referral. [facility] 08-03-2024 History and physical note Attending History and Physical Admit Date: 08/03/2024 PCP: Jared Evans MD CHIEF COMPLAINT: vomiting/diarrhea Reason for Admission: aspiration pneumonitis History Obtained From: patient HISTORY OF PRESENT ILLNESS: Mel is a 83 y.o. female with past medical history below who presents with chief complaint listed above.Patient is an 83 y/o female who presented to [facility] early this AM [place] for [place] and [place]. Patient reported she [...] Pure hypercholesterolemia 03/07/2020 PVD (peripheral vascular disease) ([facility]) Stroke (HCC) Past Surgical History: Past Surgical History: Procedure Laterality Date ANKLE SURGERY ARM SURGERY (HISTORICAL) Right COLONOSCOPY ESOPHAGEAL DILATION EYE SURGERY 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 HYSTERECTOMY ORTHOPEDIC SURGERY THROMBECTOMY Right 04/06/2024 RLE mechanical thrombectomy ([facility]) Social History: Social History Socioeconomic History Marital [...] Resource Strain: Low Risk (06/20/2024) Received from [facility] Overall Financial Resource Strain (CARDIA) Difficulty [...] min Stress: Patient Unable To Answer (08/03/2024) [place] [employer] - Occupational Stress Questionnaire Feeling of Stress : Patient unable to answer Social Connections: Unknown (08/03/2024) Social Connection and Isolation Panel [NHANES] Frequency of Communication with Friends and Family: Patient unable to answer Frequency of Social Gatherings with Friends and Family: Patient unable to answer Attends Alevism Services: Patient unable to answer Active Member of Clubs or Organizations: Patient unable to answer Attends Club or Organization Meetings: Never Marital Status: Patient unable to answer Recent Concern: Social Connections - Moderately Isolated (06/20/2024) Received from [facility] Social Connection and Isolation Panel [NHANES] Frequency of Communication with Friends and Family: More than three times a week Frequency of Social Gatherings with Friends and Family: Once a week Attends Alevism Services: More than 4 times per year [...] ANIONGAP 9 -- LIVER PROFILE: Recent Labs 08/03/24250 AST 36* ALT 26 BILITOT 0.7 ALKPHOS [...] was pursued: - inpatient admission to [facility] tele - check stool studies and cdiff, [...] Fidel Mobile Relation: Mother Secondary Emergency Contact: Anum Villafana DO NOT CALL-TERMINALLY ILL Mobile Relation: Friend [employer] Mel Pop : 1940 Primary Care Physician: Jared Evans MD The patient and/or family/surrogate voluntarily agreed to participate in ACP services. Patient s cognitive capacity: A&O x 3 Code Status: [_] [FULL CODE - Continue all advanced life support: CPR,intubation,invasive procedures] [x_] [DNR-CCA - DO NOT do CPR, intubation] [_] [DNR-PASSENGER SCREENER - Comfort care only] [_] DNR form [...] Shivani Dimas PA-C Division of Hospitalist Medicine [facility] Cosigned by Abbi Long DO at [...] sounds present no guarding or regular rigidity Code [employer] Work Phone: 08-03-2024 Note [facility] [employer] [employer] [facility] 08-03-2024 History and physical note Attending History and Physical Admit Date: 08/03/2024 PCP: Jared Evans MD CHIEF COMPLAINT: vomiting/diarrhea Reason for Admission: aspiration pneumonitis History Obtained From: patient HISTORY OF PRESENT ILLNESS: Mel is a 83 y.o. female with past medical history below who presents with chief complaint listed above.Patient is an 83 y/o female who presented to [facility] early this AM [place] and [place]. Patient reported she [...] SURGERY THROMBECTOMY Right 04/06/2024 RLE mechanical thrombectomy ([facility]) Social History: Social History Socioeconomic History Marital [...] Resource Strain: Low Risk (06/20/2024) Received from [facility] Overall Financial Resource Strain (CARDIA) Difficulty [...] min Stress: Patient Unable To Answer (08/03/2024) [place] [employer] - Occupational Stress Questionnaire Feeling of Stress : Patient unable to answer Social Connections: Unknown (08/03/2024) Social Connection and Isolation Panel [NHANES] Frequency of Communication with Friends and Family: Patient unable to answer Frequency of Social Gatherings with Friends and Family: Patient unable to answer Attends Alevism Services: Patient unable to answer Active Member [...] Friends and Family: Once a week Attends Alevism Services: More than 4 times per year [...] was pursued: - inpatient admission to [facility] tele - check stool studies and cdiff, [...] Contact Information Primary Emergency Contact: José Miguel Bradford/ Fidel Mobile Relation: Mother Secondary Emergency Contact: VasughassanAnum NOT CALL-TERMINALLY ILL Mobile Relation: Friend [employer] Mel Pop : 1940 Primary Care Physician: Jared Evans MD The patient and/or family/surrogate voluntarily agreed to participate in ACP services. Patient s cognitive capacity: A&O x 3 Code Status: [_] [FULL CODE - Continue all advanced life support: CPR,intubation,invasive procedures] [x_] [DNR-CCA - DO NOT do CPR, intubation] [_] [DNR-PASSENGER SCREENER - Comfort care only] [_] DNR form [...] Shivani Dimas PA-C Division of Hospitalist Medicine [facility] Cosigned by Abbi Long DO at [...] or regular rigidity documented in this encounter [facility] [employer] 08-03-2024 Plan of care note Problem: Potential for Compromised Skin Integrity Goal: Skin Integrity is Maintained or Improved 08/03/2024 0842 by Lima Saenz RN Outcome: Progressing 08/03/2024 0842 by Lima Saenz RN Outcome: Progressing Problem: Potential for Compromised Skin Integrity Goal: Nutritional status is improving 08/03/2024 0842 by Lima Saenz RN Outcome: Progressing 08/03/2024 0842 by Lima Saenz RN Outcome: Progressing [facility] [employer] 08-03-2024 Plan of care note Problem: Knowledge Deficit Goal: Patient/family/caregiver demonstrates understanding of disease process, treatment plan, medications, and discharge instructions Outcome: Progressing Problem: Potential for Compromised Skin Integrity Goal: Skin Integrity is Maintained or Improved Outcome: Progressing [facility] [employer] 01-17-2025 Emergency department Note Pt placed in roundtrip [facility] [employer] 08-03-2024 Emergency department Note Pt placed in [...] who presents to the emergency department from [facility] for acute onset nausea/vomiting/diarrhea x 3 episodes that began 45 minutes prior to arrival. No blood in emesis or diarrhea. Given single dose of Zofran by assisted staff following first episode but subsequently soon [...] 45 minutes prior to ED transport for assisted. [facility] reports a second resident with similar symptoms earlier today. No known flu or COVID exposures. Patient denying other flu or COVID symptoms such as headache, myalgias, fevers, congestion, cough. Nursing Notes were reviewed. Limitations to history: None Outside historians: [facility] staff (Jabari) REVIEW OF SYSTEMS Review of Systems Negative except per HPI PAST MEDICAL HISTORY Past Medical History: Diagnosis Date Arrhythmia PAF Asthma Chronic kidney disease COPD (chronic obstructive pulmonary disease) (HCC) DVT (deep venous thrombosis) (HCC) Essential hypertension 03/07/2020 GERD (gastroesophageal reflux disease) Hiatal hernia IBS (irritable bowel syndrome) Pure hypercholesterolemia 03/07/2020 PVD (peripheral vascular disease) ([facility]) Stroke ([facility]) SURGICAL HISTORY Past Surgical History: Procedure Laterality Date ANKLE SURGERY ARM SURGERY (HISTORICAL) Right COLONOSCOPY ESOPHAGEAL DILATION EYE SURGERY 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 HYSTERECTOMY ORTHOPEDIC SURGERY THROMBECTOMY Right 04/06/2024 RLE mechanical thrombectomy ([facility]) CURRENT MEDICATIONS Previous Medications ASCORBIC ACID (VITAMIN [...] Resource Strain: Low Risk (06/20/2024) Received from [facility] Overall Financial Resource Strain (CARDIA) Difficulty of Paying Living Expenses: Not very hard Food Insecurity: No Food Insecurity (07/09/2024) Received from [facility] Hunger Vital Sign Worried About Running Out of Food in the Last Year: Never true Ran Out of Food in the Last Year: Never true Transportation Needs: No Transportation Needs (07/09/2024) Received from [facility] PRAPARE - Transportation Lack of Transportation (Medical): No Lack of Transportation (Non-Medical): No Physical Activity: Inactive (04/04/2024) Exercise Vital Sign Days of Exercise per Week: 0 days Minutes of Exercise per Session: 0 min Stress: No Stress Concern Present (06/19/2024) Received from [facility] [place] [employer] - Occupational Stress Questionnaire Feeling of Stress : Not at all Social Connections: Moderately Isolated (06/20/2024) Received from [facility] Social Connection and Isolation Panel [NHANES] Frequency of Communication with Friends and Family: More than three times a week Frequency of Social Gatherings with Friends and Family: Once a week Attends Alevism Services: More than 4 times per year Active Member of Clubs or Organizations: No Attends Club or Organization Meetings: Never Marital Status: Intimate Partner Violence: Not At Risk (06/19/2024) Received from [facility] Domestic Abuse Assessment Do you feel safe in your relationships at home?: Yes Physical Abuse: Denies Verbal Abuse: Denies Housing Stability: Low Risk (07/09/2024) Received from [facility] Housing Stability Vital Sign Unable to Pay [...] No bowel dilatation Report Dictated on Workstation: [employer] Electronically Signed By: Ming Fry MD Electronically Signed Date/Time: 08/03/2024 4:05 AM EST XR chest 1 view Final Result No acute abnormality Report Dictated on Workstation: [employer] Electronically Signed By: Mnig Fry MD Electronically Signed Date/Time: 08/03/2024 3:33 [...] In compliance with this authorization, please visit www.fda.gov/media/537893/download or www.fda.gov/media/399325/download to access the applicable information sheets. LIPASE [...] who presents to the emergency department from [facility] for acute onset nausea/vomiting/diarrhea x 3 episodes that began 45 minutes prior to arrival. No blood in emesis or diarrhea. Given single dose of Zofran by assisted staff following first episode of emesis but [...] 45 minutes prior to ED transport for assisted. [facility] reports a second resident with similar symptoms [...] baseline. Patient admitted to medical service at [facility] under Dr. Parrish. ED Medications managed: [...] 0406) FINAL IMPRESSION 1. Aspiration pneumonitis (CMS/HCC) ([facility]) 2. Vomiting and diarrhea 3. LORENZA (acute kidney injury) ([facility]) DISPOSITION Observation 08/03/2024 04:20:39 AM [...] DO 08/03/24 0422 documented in this encounter [facility] 08-03-[address] and ED xray notified that patient is ready [facility] 08-03-2024 Physician Emergency department Note EMERGENCY DEPARTMENT [...] who presents to the emergency department from [facility] for acute onset nausea/vomiting/diarrhea x 3 episodes that began 45 minutes prior to arrival. No blood in emesis or diarrhea. Given single dose of Zofran by assisted staff following first episode but subsequently soon [...] 45 minutes prior to ED transport for assisted. [facility] reports a second resident with similar symptoms earlier today. No known flu or COVID exposures. Patient denying other flu or COVID symptoms such as headache, myalgias, fevers, congestion, cough. Nursing Notes were reviewed. Limitations to history: None Outside historians: [facility] staff (Jabari) REVIEW OF SYSTEMS Review of Systems Negative except per HPI PAST MEDICAL HISTORY Past Medical History: Diagnosis Date Arrhythmia PAF Asthma Chronic kidney disease COPD (chronic obstructive pulmonary disease) (HCC) DVT (deep venous thrombosis) (HCC) Essential hypertension 03/07/2020 GERD (gastroesophageal reflux disease) Hiatal hernia IBS (irritable bowel syndrome) Pure hypercholesterolemia 03/07/2020 PVD (peripheral vascular disease) ([facility]) Stroke (HCC) SURGICAL HISTORY Past Surgical History: Procedure Laterality Date ANKLE SURGERY ARM SURGERY (HISTORICAL) Right COLONOSCOPY ESOPHAGEAL DILATION EYE SURGERY 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 HYSTERECTOMY ORTHOPEDIC SURGERY THROMBECTOMY Right 04/06/2024 RLE mechanical thrombectomy ([facility]) CURRENT MEDICATIONS Previous Medications ASCORBIC ACID (VITAMIN [...] Insecurity: No Food Insecurity (07/09/2024) Received from [facility] Hunger Vital Sign Worried About Running Out of Food in the Last Year: Never true Ran Out of Food in the Last Year: Never true Transportation Needs: No Transportation Needs (07/09/2024) Received from [facility] PRAPARE - Transportation Lack of Transportation (Medical): No Lack of Transportation (Non-Medical): No Physical Activity: Inactive (04/04/2024) Exercise Vital Sign Days of Exercise per Week: 0 days Minutes of Exercise per Session: 0 min Stress: No Stress Concern Present (06/19/2024) Received from [facility] [place] [employer] - Occupational Stress Questionnaire Feeling of Stress : Not at all Social Connections: Moderately Isolated (06/20/2024) Received from [facility] Social Connection and Isolation Panel [NHANES] Frequency of Communication with Friends and Family: More than three times a week Frequency of Social Gatherings with Friends and Family: Once a week Attends Alevism Services: More than 4 times per year Active Member of Clubs or Organizations: No Attends Club or Organization Meetings: Never Marital Status: Intimate Partner Violence: Not At Risk (06/19/2024) Received from [facility] Domestic Abuse Assessment Do you feel safe in your relationships at home?: Yes Physical Abuse: Denies Verbal Abuse: Denies Housing Stability: Low Risk (07/09/2024) Received from [facility] Housing Stability Vital Sign Unable to Pay [...] No bowel dilatation Report Dictated on Workstation: [employer] Electronically Signed By: Ming Fry MD Electronically Signed Date/Time: 08/03/2024 4:05 AM EST XR chest 1 view Final Result No acute abnormality Report Dictated on Workstation: [employer] Electronically Signed By: Ming Fry MD Electronically [...] In compliance with this authorization, please visit www.fda.gov/media/323482/download or www.fda.gov/media/213330/download to access the applicable information sheets. LIPASE [...] who presents to the emergency department from [facility] for acute onset nausea/vomiting/diarrhea x 3 episodes that began 45 minutes prior to arrival. No blood in emesis or diarrhea. Given single dose of Zofran by assisted staff following first episode of emesis but [...] 45 minutes prior to ED transport for assisted. [facility] reports a second resident with similar symptoms [...] baseline. Patient admitted to medical service at [facility] under Dr. Parrish. ED Medications managed: [...] 0406) FINAL IMPRESSION 1. Aspiration pneumonitis (CMS/HCC) ([facility]) 2. Vomiting and diarrhea 3. LORENZA (acute kidney injury) ([facility]) DISPOSITION Observation 08/03/2024 04:20:39 AM [...] Medicine Provider Mariana King DO 08/03/24 0422 [facility] [facility] 08[facility]24 Instructions Savana Lopez MD - 08/01/2024 1:06 PM EST - Continue Pred forte 4x / day right eye - Stop Cipro - Stop Brimonidine - Continue erythromycin antibiotic ointment as needed - Continue Atropine daily RIGHT eye - Continue Timolol 2x / day RIGHT EYE documented in this encounter [facility] 08-01-2024 Note HNO ID: [id number] Author: SAVANA LOPEZ MD Service: ? 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 documented in this encounter [facility] 07-30-2024 Note HNO ID: [id number] Author: JOHN PHELAN MD Service: ? Author [...] agree with all of its relevant components. [facility] 07-30-2024 Note HNO ID: [id number] Author: JOHN PHELAN MD Service: ? Author [...] agree with all of its relevant components. [facility] 07-27-2024 Instructions Nicolas Sahu MD - [...] day Ciprofloxacin (flores cap) 4x daily Atropine (overedge machine operator) 1x daily Continue timolol (yellow cap) [...] C Trouble breathing Contact Dr. Savana Lopez [phone] week from 8am-5pm During non-business hours, please call [phone] or ext [phone] and ask for the eye doctor transportation maintenance specialist. documented in this encounter [facility] 07-27-2024 Note HNO ID: [id number] Author: NICOLAS SAHU MD Service: ? Author [...] scheduled Nicolas Sahu MD Vitreoretinal Surgery Fellow [facility] 07-27-2024 History of Present illness Narrative [...] Vitreoretinal Surgery Fellow documented in this encounter [facility] 07-27-2024 Note HNO ID: [id number] Author: MIKHAIL NICHOLS APRN.BATTERY ENGINEER Service: ? Author Type: Nurse Fundraising Manager Type: Anesthesia Procedure Notes Filed: 07/27/2024 11:25 Note Text: ANESTHESIOLOGY PROCEDURE NOTE Airway General Information Procedure Start Time/Medication Administration: 07/27/2024 11:21 AM Procedure End Time: 07/27/2024 11:24 AM Staffing Anesthesiologist: Maryellen Jin MD BATTERY ENGINEER: Mikhail Nichols APRN.BATTERY ENGINEER Performed by: anesthesiologist and BATTERY ENGINEER Indications and Patient Condition Indications for airway management: anesthesia Preoxygenated: yes Patient position: sniffing Method: asleep Final Airway Details Final airway type: supraglottic airway Number of attempts at approach: 1 Final Supraglottic Airway: LMA Classic Size 4 Seal Adequate: yes Failed airway: no Unrecognized esophageal intubation: no SIGNATURE: Mikhail Nichols APRN.BATTERY ENGINEER PATIENT NAME: Mel Bradford DATE: July 27, 2024 TIME: 11:24 AM CSN: [id number] [facility] 07-24-2024 Note Date of Procedure 07/23/2024. Vat Skimmer Information Pharmacy Analyst: WESLEY. Start time: 10:44 AM. No view. In wheelchair. Unable to get low enough for photo in downgaze without discomfort. Notes Hazy view, VH; choroidals; possible RD [facility] 07-24-2024 Note Date of Procedure 07/23/2024. 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 My inventory control coordinator will be contacting you to schedule this appointment. Your exact time of surgery will not be determined until the day before surgery. My inventory control coordinator will call you the day before your surgery to advise you what time to arrive at the [facility] on the first floor at the [facility]. My inventory control coordinator is Gaston, her number is [phone] Please do no wear contact lenses. We [...] retina fellow. It will be at the [facility] on the 2nd floor. We will review [...] Regine Gan in the Pre-anesthesia Consultation Clinic ([phone]) to get instructions on their use before [...] call Regine Gan or a Pre-Anesthesia Testing merchandising team lead at [phone]. documented in this encounter [facility] 07-23-2024 Note HNO ID: [id number] Author: SAVANA LOPEZ MD Service: ? Author [...] to HTN (SBP 199/99 at presentation to [place]) and anticoagulation that led to angle closure [...] - General anesthesia - POD0 Call Fidel Bradford (Other) I have confirmed and edited as [...] agree with all of its relevant components. [facility] 07-23-2024 History of Present illness Narrative [...] to HTN (SBP 199/99 at presentation to [facility]) and anticoagulation that led to angle closure [...] - General anesthesia - POD0 Call Fidel Bradford (Other) I have confirmed and edited as [...] its relevant components. documented in this encounter [facility] 07-18-2024 Note HNO ID: [id number] Author: JACI JUAREZ RN Service: Nursing Author Type: Registered Nurse Type: Progress Notes Filed: 07/18/2024 14:08 Note Text: Report given to nurse at [facility]. Transport running behind schedule. [facility] 07-16-2024 Note HNO ID: [id number] Author: MICHAEL SOARES MD Service: Ophthalmology Author Type: Resident Type: Plan of Care Filed: 07/16/2024 21:02 Note Text: Patient evaluated today at [facility] by retina attending Dr. Lopez. Assessment/plan [...] choroidals (not yet appositional) - Evaluated at [place] 07/12/24 with intense nausea and multiple episodes [...] to HTN (SBP 199/99 at presentation to [place]) and anticoagulation that led to angle closure [...] be admitted for this but may need prison facility due to limited vision in her monocular eye; she has a very poor prognosis; there is no guarantee surgery will improve her vision but need to wait for any possible surgery for more liquefaction; maybe could do 07/31/24? - I will see her in 1 week for repeat B-scan OD / Optos OD" [facility] 07-16-2024 Note HNO ID: [id number] Author: ALAINA TIPTON RN Service: ? Author [...] Doctor Josep, on the division, and aware. [facility] 07-16-2024 Note HNO ID: [id number] Author: TRACEY NANCE RN Service: Care Management Author Type: Registered Nurse Type: Care Mgt Progress Note Filed: 07/16/2024 16:49 Note Text: CARE MANAGEMENT PROGRESS NOTE SERVICE DATE: 07/16/2024 SERVICE TIME: 1:04 PM LOS: 9 days Post-Acute Discharge Planning Patient Goal(s): Increase strength Shubuta of Choice Explained: Discharge Planning Participant(s): Patient/Family Comments: Anticipated # of Days Until Discharge: 0 Transport at Discharge: Needs Prior to Discharge: Needs Prior to Discharge: OT/PT Evaluation Post-Acute Discharge Plan: Discharge to [facility] per [facility]. Await updated PT for pre cert initiation. SIGNATURE: Tracey Nance RN PATIENT NAME: Mel Bradford DATE: July 16, 2024 TIME: 1:04 PM [facility] 07-16-2024 Note Date of Procedure 07/16/2024. Vat Skimmer Information Pharmacy Analyst: Arin Vital. Start time: 8:56 AM. Stop time: 8:56 AM. Notes OD only; Hard view 360 hemorrhagic choroidals [facility] 12-30-2024 Note Date of Procedure 07/16/2024. Vat Skimmer Information STEWART Donovan 07/16/2024 9:34 AM . [...] choroidals (not yet appositional) - Evaluated at [place] 07/12/24 with intense nausea and multiple episodes [...] to HTN (SBP 199/99 at presentation to [place]) and anticoagulation that led to angle closure [...] be admitted for this but may need prison facility due to limited vision in her [...] its relevant components. documented in this encounter [facility] 07-16-2024 Note HNO ID: [id number] Author: SAVANA LOPEZ MD Service: ? Author [...] choroidals (not yet appositional) - Evaluated at [place] 07/12/24 with intense nausea and multiple episodes [...] to HTN (SBP 199/99 at presentation to [place]) and anticoagulation that led to angle closure [...] be admitted for this but may need prison facility due to limited vision in her [...] of its relev (more content not included)... [facility] 07-16-2024 Note HNO ID: [id number] Author: BRIANA PRITCHARD MD Service: General Internal Medicine Author Type: Physician Type: Progress Notes Filed: 07/16/2024 14:26 Note Text: Internal Medicine - Dae Miranda Progress Note Patient Name: Mel Bradford [address] Admission Date: 07/07/2024 Length of Stay: 9 Primary Service: DAE Miranda Staff: Briana Pritchard MD Primary Service: Dae Miranda INTERVAL HISTORY: - No acute events overnight. Bradycardic to 50s overnight but this AM HDS and afebrile - This AM seen by ophthalmology at [facility] appointment Objective MEDICATIONS: Current Facility-Administered Medications [...] Drain Duration External Collection Device 07/15/24 1000 [facility] <1 day Intake/Output 07/12/24 0700 - 07/13/24 [...] 8.9 9.0 8.8 ASSESSMENT AND PLAN: Mel Bradford is a 83 year old female with a PMH of COPD (more content not included)... [facility] 07-15-2024 Note HNO ID: [id number] Author: OTILIO GERBER MD Service: Ophthalmology Author [...] to HTN (SBP 199/99 at presentation to [place]) that caused angle closure and elevated IOP [...] BRING PATIENT DOWN FOR FOLLOW UP AT [facility] - Post-op precautions reviewed, including: Signs and symptoms of endophthalmitis, and retinal detachment warning signs reviewed, including increasing floaters, flashes or changes in peripheral vision. [facility] 07-15-2024 Note HNO ID: [id number] Author: BRIANA PRITCHARD MD Service: General Internal Medicine Author Type: Physician Type: Progress Notes Filed: 07/15/2024 12:59 Note Text: Internal Medicine - Dae Miranda Progress Note Patient Name: Mel Bradford [address] Admission Date: 07/07/2024 Length of Stay: 8 Primary Service: DAE Miranda Staff: Briana Pritchard MD Primary Service: Dae Miranda INTERVAL HISTORY: - NAEO. - Afebrile. VSS. [...] 9.1 9.3 9.3 (more content not included)... [facility] 07-14-2024 Note HNO ID: [id number] Author: BRIANA PRITCHARD MD Service: Hospital Medicine Author Type: Physician Type: Progress Notes Filed: 07/14/2024 13:37 Note Text: Internal Medicine - Dae Miranda Progress Note Patient Name: Mel Bradford [address] Admission Date: 07/07/2024 Length of Stay: 7 Primary Service: DAE Miranda Staff: Briana Pritchard MD Primary Service: Dae Miranda INTERVAL HISTORY: - NAEO. - Afebrile. VSS. [...] 9.0 8.8 9.2 ASSESSMENT AND PLAN: Mel Bradford is a (more content not included)... [facility] 07-14-2024 Note HNO ID: [id number] Author: NICOLAS SAHU MD Service: Ophthalmology Author [...] choroidals (not yet appositional) - Evaluated at [place] 07/12/24 with intense nausea and multiple episodes [...] to HTN (SBP 199/99 at presentation to [facility]) that caused angle closure and elevated IOP [...] vision. Nicolas Sahu MD Vitreoretinal Surgery Fellow [facility] 07-13-2024 Note HNO ID: [id number] Author: MARCIA MARTINS APRN.BATTERY ENGINEER Service: ? Author Type: Nurse Fundraising Manager Type: Anesthesia Procedure Notes Filed: 07/13/2024 12:43 Note Text: ANESTHESIOLOGY PROCEDURE NOTE Airway General Information Procedure Start Time/Medication Administration: 07/13/2024 12:28 PM Procedure End Time: 07/13/2024 12:42 PM Patient location during procedure: OR Timeout Performed Pre-procedure: timeout performed Consent Obtained: Yes Patient identity confirmed: arm band, care merchandising team lead and patient Staffing BATTERY ENGINEER: Marcia Martins APRN.BATTERY ENGINEER Performed by: CARIE Indications and Patient Condition Indications for airway management: anesthesia Preoxygenated: yes anesthesia circuit Method: sleep Difficult Mask: No Final Airway Details Final airway type: supraglottic airway Number of attempts at approach: 1 Final Supraglottic Airway: Supraglottic airway: ambu auraonce. Size 4 Seal Adequate: yes Failed airway: no Unrecognized esophageal intubation: no Airway not difficult Comments atraumatic SIGNATURE: Marcia Martins APRN.BATTERY ENGINEER PATIENT NAME: Mel Bradford DATE: July 13, 2024 TIME: 12:42 PM CSN: [id number] [facility] 07-13-2024 Note HNO ID: [id number] Author: FELICIA LEVY MD Service: General Internal [...] of vision now s/p laser iridotomy at [place] then trasnferred to [facility] for further management. S/p multiple peripheral iridotomies [...] Time: 2:31 PM Internal Medicine - Dae Miranda Progress Note Patient Name: Mel Bradford Patient Location: 60 031/[id number] Admission Date: 07/07/2024 Length of Stay: 6 Primary Service: DAE Miranda Staff: Felicia Levy* Primary Service: Dae Miranda INTERVAL HISTORY: - NAEO. - Afebrile. VSS. [...] mg ORAL DAILY (more content not included)... [facility] 07-12-2024 Note HNO ID: [id number] Author: TRACEY NANCE RN Service: Care Management Author Type: Registered Nurse Type: Care Mgt Progress Note Filed: 07/12/2024 16:50 Note Text: CARE MANAGEMENT PROGRESS NOTE SERVICE DATE: 07/12/2024 SERVICE TIME: 4:46 PM LOS: 5 days Post-Acute Discharge Planning Patient Goal(s): Increase strength Shubuta of Choice Explained: Discharge Planning Participant(s): Patient/Family Comments: Anticipated # of Days Until Discharge: 0 Transport at Discharge: Needs Prior to Discharge: Post-Acute Discharge Plan: Await SNF choices spoke w/ daughter in law Fidel Garcia sent to [facility] yesterday. This CM reached out to [facility] via email for choices. Daughter In law cannot recall selections. covering CM will need to reach out to [facility] tomorrow for selections that were emailed to her. SIGNATURE: Tracey Nance RN PATIENT NAME: Mel Bradford DATE: July 12, 2024 TIME: 4:46 PM [facility] 07-12-2024 Note Date of Procedure 07/12/2024. Vat Skimmer Information CHAR Veliz ROUB 07/12/2024 12:15 PM . Notes B scan OD: From wheelchair. Patient vomiting during this visit. Best images possible. 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 Possible increased height maximum now at 12:00 measuring 10.0 mm. 2) Not able to assess for mobility today due to patient discomfort 3) SRF over choroidals in three quadrants. [facility] 07-12-2024 Note Date of Procedure 07/12/2024. Vat Skimmer Information Pharmacy Analyst: JACQUELINE. Imaging Comments: Limited exam due to patient discomfort-best images possible . Notes Worsening choroid detachments [facility] 07-12-2024 Note HNO ID: [id number] Author: THOMAS SCHMITZ MD Service: ? Author [...] choroidals (not yet appositional) - Evaluated at [place] 07/12/24 with intense nausea and multiple episodes [...] to HTN (SBP 199/99 at presentation to [place]) that caused angle closure and elevated IOP [...] Resident, PGY-[address] Phelan [facility] 07-12-2024 History of Present illness Narrative [...] choroidals (not yet appositional) - Evaluated at [place] 07/12/24 with intense nausea and multiple episodes [...] to HTN (SBP 199/99 at presentation to [place]) that caused angle closure and elevated IOP [...] with Dr. Phelan documented in this encounter [facility] 07-12-2024 Note HNO ID: [id number] Author: FELICIA LEVY MD Service: General Internal [...] of vision now s/p laser iridotomy at [place] then trasnferred to [facility] for further management. S/p multiple peripheral iridotomies [...] possible dispo to SNF or home with [facility] (challenging given multiple daily eye drops and medications) - Rest per excellent note by resident Signature: Felicia Levy MD Date: 07/12/2024 Time: 1:27 PM Internal Medicine - Dae Miranda Progress Note Patient Name: Mel Bradford Patient Location: 60 031/[id number] Admission Date: 07/07/2024 Length of Stay: 5 Primary Service: DAE Miranda Staff: Felicia Levy* Primary Service: Dae Miranda INTERVAL HISTORY: - NAEO. - Afebrile. VSS. [...] ORAL BID HYDROmorpho (more content not included)... [facility] 07-11-2024 Note HNO ID: [id number] Author: FELICIA LEVY MD Service: General Internal [...] of vision now s/p laser iridotomy at [place] then trasnferred to [facility] for further management. S/p multiple peripheral iridotomies [...] Time: 2:16 PM Internal Medicine - Dae Miranda Progress Note Patient Name: Mel Bradford Patient Location: 60 [facility]/H060-31 Admission Date: 07/07/2024 Length of Stay: 4 Primary Service: DAE Miranda Staff: Felicia Levy* Primary Service: Dae Miranda INTERVAL HISTORY: - NAEO. - Afebrile. VSS. [...] H PRN AL (more content not included)... [facility] 07-10-2024 Note HNO ID: [id number] Author: FELICIA LEVY MD Service: General Internal [...] of vision now s/p laser iridotomy at [place] then trasnferred to [facility] for further management. S/p multiple peripheral iridotomies [...] Time: 12:53 PM Internal Medicine - Dae Miranda Progress Note Patient Name: Mel Bradford [address] Admission Date: 07/07/2024 Length of Stay: 3 Primary Service: DAE Miranda Staff: Felicia Levy* Primary Service: Dae Miranda INTERVAL HISTORY: - Overnight: NAEON. C/o of [...] Range in last (more content not included)... [facility] 07-09-2024 Note HNO ID: [id number] Author: TRACEY NANCE RN Service: Care Management Author Type: Registered Nurse Type: Care Mgt Initial Assessment Filed: 07/09/2024 16:17 Note Text: CARE MANAGEMENT: ASSESSMENT AND DISCHARGE PLAN SERVICE DATE: July 09, 2024 SERVICE TIME:4:17 PM PCP: Jared Evans MD, MD Primary Contact: Extended Emergency Contact Information Primary Emergency Contact: Fidel Hdez Mobile Relation: Other Secondary Emergency Contact: Davide Bradford Relation: Other Admission Status: Inpatient Insurance Provider: [employer] MEDICARE PPO Discharge Planning requested by: Per Department Practice Potential Transition Plans Home Care Advance Directives Current Advance Directive: Health Care Power of Head Insulation Board Saw Operator In Chart: Yes Up To Date and Valid: Yes Current Living Arrangements and Support Lives with: Alone Type of Residence: Mobile Home Support: Friends/neighbors, Family members How do you manage to accomplish the following: Independent: Ambulation;Bathe/Shower;Dress;Angélica g to the bathroom Needs Assistance: Meals/Meal Prep;Medication Management;Transportation to appointments/community Current Services/Equipment Discharge Planning Patient Goal(s): Increase strength Shubuta of Choice Explained: Shubuta of Choice Given: Yes Level of Care Discussed: Home Care Are you interested in bedside delivery of your medications? Yes Discharge Planning Participant(s): Caregiver;Family Patient/Family Comments: Fidel Hdez (Other) Caregiver Assessment: Caregiver is ready, willing and able to meet the patient's needs as recommended by the inter-professional team: (friends) Transport at Discharge: Transportation Arrangements: Car Destination: [id number] [place] [address] [address] [place] [address] Needs Prior to Discharge: Post-Acute Discharge Plan: Anticipate DC home with [facility] 24-48 hours. HC referrals placed . Await OT evaluation. Patient lives alone in trailer , There are 4 steps to entrance, Using rolator prior to admission. Patient independent with ADL and assist with iADL prior to admission.Patient receives meals on wheels. Family transport to appointments and can provide parts processor assist. Family transport home. This CM spoke [...] SIGNATURE: Tracey Nance RN PATIENT NAME: Mel Bradford DATE: July 09, 2024 TIME: 4:07 PM [facility] 07-09-2024 Note HNO ID: [id number] Author: NADIA VIDAL, Mabel Service: Pharmacy Author Type: Choir Member Type: Plan of Care Filed: 07/09/2024 12:31 Note Text: Insurance investigation completed Patient has active prescription insurance: Yes - Patient's insurance is in-network with [facility] Insurance loaded into [place]: Yes Test claim was completed to verify insurance is active: Successful Any questions, please reach out to your medication manager access. [facility] 07-09-2024 Note HNO ID: [id number] Author: GISSELL POPE RPh Service: Pharmacy Author Type: Pharmacist Type: Plan of Care Filed: 07/09/2024 12:32 Note Text: PHARMACY MEDICATION REVIEW Patient Name: Mel Bradford : 1940 The following medications were updated within the ELECTRIC TRUCK CRANE OPERATOR medication list: Medications ADDED to ELECTRIC TRUCK CRANE OPERATOR medication list Furosemide 40 mg prn swelling Medications CHANGED on ELECTRIC TRUCK CRANE OPERATOR medication list Lisinopril 10 mg changed to 40 mg Increased from 5 mg daily to 40 mg daily on last hospital discharge Medications REMOVED from ELECTRIC TRUCK CRANE OPERATOR medication list Albuterol HFA PRN Lidocaine 4% [...] Yes Completed by: Gissell Pope RPh All ELECTRIC TRUCK CRANE OPERATOR medications addressed by LIP Patient interested in Bedside Delivery Services or using OP Pharmacy at discharge? Yes. Discharge Pharmacy Updated Preferred outpatient pharmacy: [id number] [place] [address] [address] [place] [id number] [facility] Allergies: Percocet [Oxycodone* Itching Prior [...] Inject 0.7 mL subcutaneously every 12 hours. ndzvxbxtjas-excbuaffu-htuzfdlo (TRELEGY ELLIPTA) 100-62.5-25 mcg inhalation powder 07/06/2024 [...] Drop (MYDRIACYL) None recorded 1 Gissell Pope [facility] 07/09/2024 [facility] 07-09-2024 Note HNO ID: [id number] Author: OTILIO GERBER MD Service: ? Author Type: Resident Type: Progress Notes Filed: 07/09/2024 10:33 Note Text: OPHTHALMOLOGY CONSULT PROGRESS NOTE Patient Name: Mel Bradford Patient Admission Date: 07/07/2024 Today's Date: 07/09/24 [...] to HTN (SBP 199/99 at presentation to [facility]) that caused angle closure and elevated IOP [...] Follow up with Dr. Lopez Monday 07/16 [facility] eye clinic -Can continue anticoagulation -Patient [...] NLP vision Otilio Gerber MD Ophthalmology Resident [facility] Patient seen and discussed with Dr. Phelan [facility] 07-09-2024 History of Present illness Narrative OPHTHALMOLOGY CONSULT PROGRESS NOTE Patient Name: Mel Bradford Patient Admission Date: 07/07/2024 Today's Date: 07/09/24 [...] to HTN (SBP 199/99 at presentation to [facility]) that caused angle closure and elevated IOP [...] Follow up with Dr. Lopez Monday 07/16 [facility] eye clinic -Can continue anticoagulation -Patient [...] NLP vision Otilio Gerber MD Ophthalmology Resident [facility] Patient seen and discussed with Dr. Phelan documented in this encounter [facility] 07-09-2024 Note HNO ID: [id number] Author: FELICIA LEVY MD Service: General Internal [...] of vision now s/p laser iridotomy at [facility] then trasnferred to [facility] for further management. S/p multiple peripheral iridotomies [...] Time: 1:18 PM Internal Medicine - Dae Miranda Progress Note Patient Name: Mel Bradford Patient Location: H060 031/H060-31 Admission Date: 07/07/2024 Length of Stay: 2 Primary Service: DAE Miranda Staff: Felicia Levy* Primary Service: aDe Miranda INTERVAL HISTORY: - Overnight: NAEON. Afebrile, HDS. [...] Lines, Drains, and Airways Line Duration Peripheral 12/21/24 External Facility Right Forearm 20 Gauge 2 days Intake/Output 07/07/24 0700 - 07/08/24 0659 07/08/24 0700 - 07/09/24 0659 Intake (ml) 0 350 Output (ml) 2 0 Net (ml) -2 350 (more content not included)... [facility] 07-08-2024 Note HNO ID: [id number] Author: FELICIA LEVY MD Service: Hospital Medicine [...] of vision now s/p laser iridotomy at [facility] then trasnferred to [facility] for further management. Plan: - Ophthalmology consult - appreciate recs (on systemic prednisone and local treatment, serial exams). - Residents discussed with Ophtho - Ok to continue AC for afib and prior embolic strokes. Will keep on Enoxaparin 1 mg/kg BID - Rest per excellent note by resident Signature: Felicia Levy MD Date: 07/08/2024 Time: 11:41 AM Internal Medicine - Dae Miranda Progress Note Patient Name: Mel Bradford Patient Location: 60 [facility] [id number] Admission Date: 07/07/2024 Length of Stay: 1 Primary Service: DAE Miranda Staff: Felicia Levy* Primary Service: Dae Miranda INTERVAL HISTORY: - Overnight: NAEON. Afebrile, HDS. [...] Labs 07/07/24 1853 (more content not included)... [facility] 07-07-2024 Note HNO ID: [id number] Author: JARED GILMORE MD Service: ? Author [...] components. Jared Gilmore MD Vitreoretinal Surgery Fellow [facility] 07-07-2024 History of Present illness Narrative [...] with Dr. Gilmore documented in this encounter [facility] 07-07-2024 Note [facility] 07-07-2024 Hospital course Narrative Discharge Summary Hospitalist [...] kidney disease COPD (chronic obstructive pulmonary disease) ([facility]) DVT (deep venous thrombosis) ([facility]) Essential hypertension 03/07/2020 GERD (gastroesophageal reflux disease) Hiatal hernia IBS (irritable bowel syndrome) Pure hypercholesterolemia 03/07/2020 PVD (peripheral vascular disease) ([facility]) Stroke ([facility]) Procedures: multiple peripheral iridotomies Hospital Course: See [...] Ellipta 100-62.5-25 MCG/ACT aerosol powder Generic drug: Zdknafewwov-Vliejmfht-Zmpjly STOP taking these medications albuterol 108 (90 [...] solution Recommended Follow-up: Tre Lombardi MD [address] [phone] Call in 2 month(s) Need follow up in December 2024 for aneurysm surveillence Complexity of Follow up: [] Moderate Complexity: follow up within 7-14 calendar days (34458) [x] Severe Complexity: follow up within 7 calendar days (61985) - after DC from F Follow up [...] Red Henderson DO Division of Hospitalist Medicine [facility] 07/07/2024, 11:08 AM documented in this encounter [facility] 07-07-2024 Nurse Note Report called to [facility]. [facility] 07-07-2024 Nurse Note Report called to [facility]. This RN called Protective Services to try and locate pts lost glasses from 07/05/2024. Glasses that match the description are in lost and found. Will attempt to see if glasses are a match. documented in this encounter [facility] 07-07-2024 Note Formatting of this n ote might be different from the original. Care Management Progress Note DC plan - Transfer to [facility]. Received message from RN who reports pt has a bed at the [facility] and dc orders to go today and is requesting transportation be set up AIDAN. Transportation set up through roundtrip via cot with [employer] for 10:30am. RN, pt and pt's dtr Fidel notified of dc plan and transportation time. No add'l needs for dc noted or identified at this time. Length of Stay (Days): 0 GMLOS: 2.3 [facility] 07-07-2024 Note Formatting of this n ote might be different from the original. Care Management Progress Note DC plan - Transfer to [facility]. Received message from RN who reports pt has a bed at the [facility] and dc orders to go today and is requesting transportation be set up AIDAN. Transportation set up through roundtrip via cot with [employer] for 10:30am. RN, pt and pt's dtr Fidel notified of dc plan and transportation time. No add'l needs for dc noted or identified at this time. Length of Stay (Days): 0 GMLOS: 2.3 [facility] 07-07-2024 Miscellaneous Notes Care Management Progress Note DC plan - Transfer to [facility]. Received message from RN who reports pt has a bed at the [facility] and dc orders to go today and is requesting transportation be set up AIDAN. Transportation set up through roundtrip via cot with [employer] for 10:30am. RN, pt and pt's dtr [...] is working on this . With staff. [facility] she is agreeable to it if [...] - DO NOT do CPR, intubation] [_] [DNR-PASSENGER SCREENER - Comfort care only] [_] DNR form [was/was not] signed Summary of discussion: The patient health care POA/ surrogate is the following: Fidel STAPLETON ([facility]) I answered all the patient/family questions that [...] and/or family/surrogate. Silvio Peres MD Acute care [facility] 07/05/2024, 1:18 PM documented in this encounter [facility] 07-07-2024 History of Present illness Narrative Nutrition rescreen completed. Chart reviewed. Patient to be monitored and followed by the diet analytical laboratory technician. Images from the original note were not included. PHYSICAL THERAPY [facility] Initial Evaluation Name/MRN: Mel Pop ([id number]) Evaluation Date: 07/06/2024 Date of : 1940 Admission Date: 07/05/2024 4:21 AM Age: 83 y.o. Room[facility]Bed: [facility] A Discharge Recommendation: Group Home Facility Equipment Needed: (tbd) Assessment IMPRESSION: The [...] kidney disease COPD (chronic obstructive pulmonary disease) ([facility]) DVT (deep venous thrombosis) ([facility]) Essential hypertension 03/07/2020 GERD (gastroesophageal reflux disease) Hiatal hernia IBS (irritable bowel syndrome) Pure hypercholesterolemia 03/07/2020 PVD (peripheral vascular disease) ([facility]) Stroke ([facility]) Past Surgical History: Past Surgical History: Procedure Laterality Date ANKLE SURGERY ARM SURGERY (HISTORICAL) Right COLONOSCOPY ESOPHAGEAL DILATION EYE SURGERY 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 HYSTERECTOMY ORTHOPEDIC SURGERY THROMBECTOMY Right 04/06/2024 RLE mechanical thrombectomy ([facility]an) Admission Diagnosis: Patient Active Problem List Diagnosis Date Noted Visual disturbance, subjective 07/06/2024 Retinal detachment, right 07/05/2024 Vision loss of right eye 07/05/2024 Acute venous embolism and thrombosis of deep vessels of proximal lower extremity ([facility]) 04/14/2024 Peripheral arterial disease ([facility]) 04/03/2024 Immunodeficiency due to conditions classified elsewhere ([facility]) 07/27/2023 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 ([facility]) 07/27/2023 Bilateral pneumonia 06/16/2022 COVID-19 06/16/2022 Hypothyroidism 06/16/2022 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[facility]) 06/16/2022 Cellulitis 05/18/2022 Nicotine use disorder 05/18/2022 Acute venous embolism and thrombosis of deep vessels of proximal end of right lower extremity ([facility]) 04/19/2024 Atrial fibrillation, unspecified type ([facility]) 04/19/2024 Irritable bowel syndrome with diarrhea 03/07/2020 Microscopic hematuria 03/07/2020 Left retinal detachment 03/07/2020 Hyperglycemia 03/07/2020 Osteopenia of left femoral neck 03/07/2020 intermediate current use of anticoagulant therapy 03/07/2020 Seasonal allergies 03/07/2020 Chronic renal insufficiency, stage III (moderate) ([facility]) 03/07/2020 Major depression, single episode, in complete remission ([facility]) 03/07/2020 Gastroesophageal reflux disease without esophagitis 03/07/2020 Essential hypertension 03/07/2020 Pure hypercholesterolemia 03/07/2020 Overweight 03/07/2020 Psoriasis 03/07/2020 History of cerebrovascular accident 03/07/2020 Atrial fibrillation ([facility]) 03/07/2020 Chronic obstructive pulmonary disease ([facility]) 03/07/2020 Finger osteomyelitis, right ([facility]) 03/06/2020 Medical Precautions: No active [...] support system of friends and family Active Criminal Psychologist: Prior Level of Function Prior Level of [...] of Care supervision is transferred to a [facility] Therapy Services Physical Therapist. Goals and/or [...] pulmonary disease) (HCC) DVT (deep venous thrombosis) ([facility]) Essential hypertension 03/07/2020 GERD (gastroesophageal reflux disease) Hiatal hernia IBS (irritable bowel syndrome) Pure hypercholesterolemia 03/07/2020 PVD (peripheral vascular disease) ([facility]) Stroke ([facility]) LABS: CBC: Recent Labs 07/05/24 [...] Contact Information Primary Emergency Contact: José Miguel Bradford/ Fidel Mobile Relation: Mother Secondary Emergency Contact: Anum Villafana DO NOT CALL-TERMINALLY ILL Mobile Relation: Friend Red Henderson DO Division of Hospitalist Medicine [facility] documented in this encounter [facility] 07-06-2024 Nurse Note This RN called Protective Services to try and locate pts lost glasses from 07/05/2024. Glasses that match the description are in lost and found. Will attempt to see if glasses are a match. [facility] 07-06-2024 Telephone encounter Note TELEPHONE ENCOUNTER 07/06/2024 Patient with recent stroke and admitted to [facility] where she was noted to have elevated IOP with retinal detachment of the right eye by consult underwear cutter. She has a history of RD in [...] DFE, OCT mac OU, and optos OU Jesse Elizondo MD Ophthalmology Resident [facility] Work Phone: 07-06-2024 Miscellaneous Notes TELEPHONE ENCOUNTER 07/06/2024 Patient with recent stroke and admitted to [facility] where she was noted to have elevated IOP with retinal detachment of the right eye by consult underwear cutter. She has a history of RD in [...] DFE, OCT mac OU, and optos OU Jesse Elizondo MD Ophthalmology Resident documented in this encounter [facility] 07-06-2024 Note Formatting of this n ote [...] is working on this . With staff. [facility] she is agreeable to it if goes home . [employer] 07-06-2024 Note Formatting of this n ote [...] is working on this . With staff. [facility] she is agreeable to it if goes home . [employer] 07-06-2024 Consult note Formatting of th is [...] referral to a retinal subspecialist at either [facility] [place] or [facility] for repair of retinal detachment right eye (OD). Continue ophthalmic pressure lowering ophthalmic meds right eye (OD) until seen by retinal subspecialist. [employer] Phone: 07-06-2024 Consult note Formatting of th [...] referral to a retinal subspecialist at either [facility] [place] or [facility] for repair of retinal detachment right eye [...] days. Associated Order(s): Inpatient consult to [place]ovascular [place]rology[place] Inpatient consult to Endovascular Neurology--[facility] Consult performed by: Helga Naik, SEBASTIAN - WELL SURVEYING ENGINEER Consult ordered by: Wm Nunes DO Reason [...] kidney disease, COPD (chronic obstructive pulmonary disease) ([facility]), DVT (deep venous thrombosis) ([facility]), Essential hypertension (03/07/2020), GERD (gastroesophageal reflux disease), Hiatal hernia, IBS (irritable bowel syndrome), Pure hypercholesterolemia (03/07/2020), PVD (peripheral vascular disease) ([facility]), and Stroke ([facility]). She has no past medical history of Cancer ([facility]) ([facility]), Cerebral artery occlusion with cerebral infarction ([facility]), CHF (congestive heart failure) ([facility]), Diabetes mellitus ([facility]), Hemodialysis patient ([facility]) ([facility]), blood clots, or MDRO (multiple [...] Name: Mel Pop Patient : 1940 Acct: [id number] Date of Admission: 07/05/2024 Room/Bed: 60/60 PCP: [...] SURGERY THROMBECTOMY Right 04/06/2024 RLE mechanical thrombectomy ([facility]aiman) Home Medications: Prior to Admission medications Medication [...] Historical Provider, ergocalciferol (Vitamin D2) 1.25 MG (93250 UT) capsule Take 1.25 mg by mouth [...] 5 MG tablet Take as directed by [facility] Anticoagulation Clinic (90 tablets = 90 day supply). Current dose: 5 mg daily. 06/01/24 Jesse Valdez MD Current Hospital Medications: Current Facility-Administered [...] , Rfl: ergocalciferol (Vitamin D2) 1.25 MG (93727 UT) capsule, Take 1.25 mg by mouth [...] 5 MG tablet, Take as directed by [facility] Anticoagulation [facility] (90 tablets = 90 day [...] this patient's care. documented in this encounter [facility] 07-05-2024 Consult note Formatting of th is [...] drops are started. Will continue to follow. [facility] 07-05-[address] Carlson at bedside. [facility] 07-05-[address] Carlson at [...] to Maritza FRAGA Emergency Department Encounter Location: [facility] EMERGENCY [facility]PT Patient: Mel Pop [...] 423 ms QTC Interval 418 ms P Cherokee 0 degrees QRS [place] 37 degrees T Wave [place] 29 degrees NC Interval 0 ms Troponin, High Sensitivity, Serial, [...] IV. I discussed with Dr. Peres from [facility] hospitalist service who accepted the admit. Medications sodium chloride 0.9% (NS) flush 5-40 mL ( IntraVENous Not Given 07/05/24 5810) sodium chloride 0.9% (NS) flush 5-40 mL (has no administration in time range) sodium chloride 0.9 % infusion (has no administration in time range) sodium chloride 0.9 % infusion (50 mL/hr IntraVENous Rate/Dose Verify 07/05/24 1548) labetalol (Normodyne,Trandate) injection 10 mg (has no [...] Given 07/05/24 0517) I am not the access clinician of record. Dr. Nunes is the access clinician of record. Final Impression 1. Vision loss of right eye 2. Acute intractable headache, unspecified headache type DISPOSITION Observation 07/05/2024 01:21:52 PM (Please note that portions of this note may have been completed with a voice recognition program. Efforts were made to edit the dictations but occasionally words are mis-transcribed.) Jhonatan Hernandez MD [facility] [employer] Jhonatan Hernandez MD 07/05/24 1322 documented in this encounter [facility] 07-05-2024 Note Formatting of this n ote is different from the original. [employer] Melelvie Pop : 1940 Primary Care Physician: Jared Evans MD The patient and/or family/surrogate voluntarily agreed to participate in ACP services. Patient s cognitive capacity: intact Code Status: [ ] [FULL CODE - Continue all advanced life support: CPR,intubation,invasive procedures] [ X ] [DNR-CCA - DO NOT do CPR, intubation] [_] [DNR-PASSENGER SCREENER - Comfort care only] [_] DNR form [was/was not] signed Summary of discussion: The patient health care POA/ surrogate is the following: Fidel STAPLETON ([facility]) I answered all the patient/family questions that [...] with patient and/or family/surrogate. Silvio Peres MD [facility] [employer] 07/05/2024, 1:18 PM [facility] 07-05-2024 Note Formatting of this n ote [...] - DO NOT do CPR, intubation] [_] [DNR-PASSENGER SCREENER - Comfort care only] [_] DNR form [was/was not] signed Summary of discussion: The patient health care POA/ surrogate is the following: Fidel STAPLETON ([facility]) I answered all the patient/family questions that [...] with patient and/or family/surrogate. 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 History Obtained From: patient and patient's [id number] HISTORY OF PRESENT ILLNESS: Mel is a [...] pulmonary disease) (HCC) DVT (deep venous thrombosis) ([facility]) Essential hypertension 03/07/2020 GERD (gastroesophageal reflux disease) Hiatal hernia IBS (irritable bowel syndrome) Pure hypercholesterolemia 03/07/2020 PVD (peripheral vascular disease) ([facility]) Stroke ([facility]) Past Surgical History: Past Surgical History: Procedure Laterality Date ANKLE SURGERY ARM SURGERY (HISTORICAL) Right COLONOSCOPY ESOPHAGEAL DILATION EYE SURGERY 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 HYSTERECTOMY ORTHOPEDIC SURGERY THROMBECTOMY Right 04/06/2024 RLE mechanical thrombectomy ([facility]) Social History: Social History Socioeconomic History Marital [...] Resource Strain: Low Risk (06/20/2024) Received from [facility] Overall Financial Resource Strain (CARDIA) Difficulty of Paying Living Expenses: Not very hard Food Insecurity: No Food Insecurity (06/20/2024) Received from [facility] Hunger Vital Sign Worried About Running Out of Food in the Last Year: Never true Ran Out of Food in the Last Year: Never true Transportation Needs: No Transportation Needs (07/02/2024) Received from [facility] SDOH Transportation Source Has lack of [...] No Stress Concern Present (06/19/2024) Received from [facility] [place] of Occupational Health - Occupational Stress Questionnaire Feeling of Stress : Not at all Social Connections: Moderately Isolated (06/20/2024) Received from [facility] Social Connection and Isolation Panel [NHANES] Frequency of Communication with Friends and Family: More than three times a week Frequency of Social Gatherings with Friends and Family: Once a week Attends Alevism Services: More than 4 times per year Active Member of Clubs or Organizations: No Attends Club or Organization Meetings: Never Marital Status: Intimate Partner Violence: Not At Risk (06/19/2024) Received from [facility] Domestic Abuse Assessment Do you feel safe in your relationships at home?: Yes Physical Abuse: Denies [facility] Domestic Abuse - Type of Abuse: Not on file [facility] Domestic Abuse - Time Frame: Not on file [facility] Domestic Abuse - Signs and Symptoms: Not on file Verbal Abuse: Denies [facility] Domestic Abuse - Reported To: Not on file Housing Stability: Low Risk (06/20/2024) Received from [facility] Housing Stability Vital Sign Unable to [...] the evening. ergocalciferol (Vitamin D2) 1.25 MG (68468 UT) capsule Take 1.25 mg by mouth [...] 5 MG tablet Take as directed by [facility] Anticoagulation Clinic (90 tablets = 90 day [...] 07/05/2024 Patient Name: MEL POP : 1940 [facility]#: [id number] Exam Date/Time: 07/05/2024 11:45 Procedure: MR BRAIN [...] 07/05/2024 Patient Name: MEL POP : 1940 [facility]#: [id number] Exam Date/Time: 07/05/2024 04:36 Procedure: CT HEAD [...] 07/05/2024 Patient Name: MEL POP : 1940 [facility]#: [id number] Exam Date/Time: 07/05/2024 04:36 Procedure: CT HEAD [...] glucose meter Result Date: 07/05/2024 Performed by: [facility], [address] [place] [address] CLIA ID: [id number] Assessment / Plan Discussed management with the [...] Extended Emergency Contact Information Primary Emergency Contact: Anum Villafana Mobile Relation: Friend Secondary Emergency Contact: José Miguel Bradford/ Fidel Mobile Relation: Child Silvio Peres MD Division of Hospitalist Medicine [employer] Dictated using [email or web address] Speaking Medical Version 2.4 Proof read however unrecognized voice recognition errors may have occurred [employer] Work Phone: 07-05-2024 Note [employer] [facility] 07-05-2024 History and physical note Attending History and Physical Admit Date: 07/05/2024 PCP: Jared Evans MD CHIEF COMPLAINT: Loss of vision right eye, headache/eye pain, nausea, eye swelling Reason for Admission: 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 History Obtained From: patient and patient's [id number] HISTORY OF PRESENT ILLNESS: Mel is a [...] SURGERY THROMBECTOMY Right 04/06/2024 RLE mechanical thrombectomy ([facility]an) Social History: Social History Socioeconomic History Marital [...] Resource Strain: Low Risk (06/20/2024) Received from [facility] Overall Financial Resource Strain (CARDIA) Difficulty of Paying Living Expenses: Not very hard Food Insecurity: No Food Insecurity (06/20/2024) Received from [facility] Hunger Vital Sign Worried About Running Out of Food in the Last Year: Never true Ran Out of Food in the Last Year: Never true Transportation Needs: No Transportation Needs (07/02/2024) Received from [facility] Transportation Source Has lack of transportation kept you from medical appointments or from getting medications?: No Has lack of transportation kept you from meetings, work, or from getting things needed for daily living?: No Physical Activity: Inactive (04/04/2024) Exercise Vital Sign Days of Exercise per Week: 0 days Minutes of Exercise per Session: 0 min Stress: No Stress Concern Present (06/19/2024) Received from [facility] [place] of Occupational Health - Occupational Stress Questionnaire Feeling of Stress : Not at all Social Connections: Moderately Isolated (06/20/2024) Received from [facility] Social Connection and Isolation Panel [NHANES] Frequency of Communication with Friends and Family: More than three times a week Frequency of Social Gatherings with Friends and Family: Once a week Attends Alevism Services: More than 4 times per year Active Member of Clubs or Organizations: No Attends Club or Organization Meetings: Never Marital Status: Intimate Partner Violence: Not At Risk (06/19/2024) Received from [facility] Domestic Abuse Assessment Do you feel safe in your relationships at home?: Yes Physical Abuse: Denies [facility] Domestic Abuse - Type of Abuse: Not on file [facility] Domestic Abuse - Time Frame: Not on file [facility] Domestic Abuse - Signs and Symptoms: Not on file Verbal Abuse: Denies [facility] Domestic Abuse - Reported To: Not on file Housing Stability: Low Risk (06/20/2024) Received from [facility] Housing Stability Vital Sign Unable to [...] the evening. ergocalciferol (Vitamin D2) 1.25 MG (50411 UT) capsule Take 1.25 mg by mouth [...] 5 MG tablet Take as directed by [facility] Anticoagulation Clinic (90 tablets = 90 day [...] : 1940 [id number] Exam Date/Time: 07/05/2024 11:45 Procedure: MR BRAIN [...] 07/05/2024 Patient Name: MEL POP : 1940 [facility]#: [id number] Exam Date/Time: 07/05/2024 04:36 Procedure: CT HEAD [...] EST. Report Dictated on Electronically Signed By: Ciriol Ray DR Electronically Signed Date/Time: 07/05/2024 5:03 AM EST CTA head neck angio w and wo IV contrast Result Date: 07/05/2024 [facility]: [facility]EL POP [facility] 1940 [id number] Exam Date/Time: 07/05/2024 04:36 Procedure: CT HEAD [...] 07/05/2024 Patient Name: MEL POP : 1940 [facility]#: [id number] Exam Date/Time: 07/05/2024 04:36 Procedure: CT PERFUSION [...] glucose meter Result Date: 07/05/2024 Performed by: [facility], [address] [place] [address] CLIA ID: [id number] Assessment / Plan Discussed management with the [...] Extended Emergency Contact Information Primary Emergency Contact: VasughassanAnum Mobile Relation: Friend Secondary Emergency Contact: José Miguel Bradford/ Fidel Mobile Relation: Child Silvio Peres MD Division of Hospitalist Medicine Acute care [facility] Dictated using Luminescent Naturally Speaking Medical Version 2.4 Proof read however unrecognized voice recognition errors may have occurred documented in this encounter [facility] [employer] 07-05-2024 Emergency department Note Provider notified of patient request for pain meds. [facility] 07-05-2024 Consult note Associated Order (s): IP [...] drops to be discontinued after 4 days. [facility] 07-05-2024 Consult note Associated Order (s): Inpatient consult to Endovascular Neurology[place] Inpatient consult to Endovascular Neurology--[facility] Consult performed by: Helga Naik APRN - WELL SURVEYING ENGINEER Consult ordered by: Wm Nunes DO Reason [...] kidney disease, COPD (chronic obstructive pulmonary disease) ([facility]), DVT (deep venous thrombosis) ([facility]), Essential hypertension (03/07/2020), GERD (gastroesophageal reflux disease), Hiatal hernia, IBS (irritable bowel syndrome), Pure hypercholesterolemia (03/07/2020), PVD (peripheral vascular disease) ([facility]), and Stroke ([facility]). She has no past medical history of Cancer ([facility]) ([facility]), Cerebral artery occlusion with cerebral infarction ([facility]), CHF (congestive heart failure) ([facility]), Diabetes mellitus ([facility]), Hemodialysis patient ([facility]) ([facility]), blood clots, or MDRO (multiple [...] ., . Personal review of: Imaging,Labs,Old Records},.},. [facility] [employer] Work Phone: 07-05-[address] Carlson at bedside [facility] 07-05-2024 Emergency department Note Patient is returning back to room 32 at this time with Jose, Medic. [facility] 07-05-2024 Emergency department Note Pt currently at eye clinic with RADHA Hinkle for emergent eye laser procedure. [facility] 07-05-2024 Note Pt currently at eye clinic with RADHA Hinkle for emergent eye laser procedure. [facility] 07-05-2024 Emergency department Note Pt emergently going to eye clinic. Pt being transported in wheelchair with trauma float RADHA Hinkle and Maritza FRAGA Pt being transported on zoll monitor and acls kit. [facility] 07-05-2024 Emergency department Note Ophthalmology at bedside [facility] 07-05-2024 Emergency department Note Report to Maritza FRAGA [facility] 07-05-2024 Consult note Associated Order (s): IP CONSULT TO STROKE TEAM STROKE TEAM NOTE Patient Name: Mel Pop Patient : 1940 Acct: [id number] Date of Admission: 07/05/2024 Room/Bed: 60/60 PCP: [...] Pure hypercholesterolemia 03/07/2020 PVD (peripheral vascular disease) ([facility]) Stroke (HCC) Past Surgical History: Past Surgical History: Procedure Laterality Date ANKLE SURGERY ARM SURGERY (HISTORICAL) Right COLONOSCOPY ESOPHAGEAL DILATION EYE SURGERY 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 HYSTERECTOMY ORTHOPEDIC SURGERY THROMBECTOMY Right 04/06/2024 RLE mechanical thrombectomy ([place]) Home Medications: Prior to Admission medications Medication [...] Historical Provider, ergocalciferol (Vitamin D2) 1.25 MG (53912 UT) capsule Take 1.25 mg by mouth [...] 5 MG tablet Take as directed by [facility] Anticoagulation Clinic (90 tablets = 90 day supply). Current dose: 5 mg daily. 06/01/24 Jesse Valdez MD Current Hospital Medications: Current Facility-Administered Medications: fentaNYL (Sublimaze) injection 25 mcg, 25 mcg, IntraVENous, Once, Wm Mudrakola, DO labetalol (Normodyne,Trandate) injection 10 mg, 10 mg, IntraVENous, q10 min PRN, Wm Mudrakola, DO sodium chloride 0.9 % bolus 250 mL, 250 mL, IntraVENous, Once, Mw Mudrakola, DO sodium chloride 0.9 % infusion, [...] , Rfl: ergocalciferol (Vitamin D2) 1.25 MG (09141 UT) capsule, Take 1.25 mg by mouth [...] 5 MG tablet, Take as directed by [facility] Anticoagulation Clinic (90 tablets = 90 day [...] to be involved in this patient's care. [facility] Phone: 07-05-2024 Physician Emergency department Note Emergency Department Encounter Location: [facility] EMERGENCY DEPT Patient: Mel Pop [...] 423 ms QTC Interval 418 ms P Cherokee 0 degrees QRS Cherokee 37 degrees T Wave [place] 29 degrees NC Interval 0 ms Troponin, High Sensitivity, Serial, [...] IV. I discussed with Dr. Peres from [facility] hospitalist service who accepted the admit. Medications sodium chloride 0.9% (NS) flush 5-40 mL ( IntraVENous Not Given 07/05/24 8700) sodium chloride 0.9% (NS) flush 5-40 mL [...] Given 07/05/24 0517) I am not the access clinician of record. Dr. Nunes is the access clinician of record. Final Impression 1. Vision loss of right eye 2. Acute intractable headache, unspecified headache type DISPOSITION Observation 07/05/2024 01:21:52 PM (Please note that portions of this note may have been completed with a voice recognition program. Efforts were made to edit the dictations but occasionally words are mis-transcribed.) Jhonatan Hernandez MD [employer] Jhonatan Hernandez MD 07/05/24 1322 [facility] 06-19-2024 Note HNO ID: [id number] Author: JOSE GONZALEZ tim Service: Pharmacy Author Type: Pharmacist Type: Plan of Care Filed: 06/19/2024 13:35 Note Text: DISCHARGE MEDICATION REVIEW BY PHARMACY Patient Name: Mel Bradford Account #: Data Unavailable Admission Date: 06/10/2024 [...] with neuroendovascular for ICA aneurysm Jose Gonzalez [facility] Pager: Nora/Epic chat 06/19/2024 1:31 PM Medication List START [...] ELLIPTA 100-62.5-25 mcg inhalation powder Generic drug: nhchhhgeqzb-oakeolwvj-dafwzvhr VITAMIN C 500 mg tablet Generic drug: [...] as: COUMADIN zinc oxide 20 % ointment [facility] 06-19-2024 Note HNO ID: [id number] Author: ROSLYN ROSE RN Service: Care Management [...] Arrangements: Ambulance Transportation Agency and Phone #:: [facility] ( [facility] ) [phone] / [phone] Date of Trip: 06/19/24 Time of Trip: 1800 Type of Service: BLS Non-emergency Methods Engineer Location: [facility] Destination: [facility] Financial Care Management Responsibility: None Handoff Communication: Handoff to: Specialty Septic Tank Setter Specialty Septic Tank Setter Name/Phone: [facility] Additional Information: Patient has insurance precert and is discharging to [facility] today via [facility] cot at 6:00 PM. Spoke with patient at bedside and son José Miguel via phone who are aware and agreeable. Transfer envelope with chart. Care team aware via Epic chat. Discharge Information Row Name ED to Hosp-Admission (Current) from 06/10/2024 in [place] [address] NEURO/CARD Rehab Facility Agency [facility] SIGNATURE: Roslyn Rose RN PATIENT NAME: Mel Bradford DATE: June 19, 2024 TIME: 1:10 PM CONTACT #: [phone] [facility] 06-19-2024 Note HNO ID: [id number] Author: DON EDWARDS DO Service: Hospital Medicine Author Type: Physician Type: Progress Notes Filed: 06/19/2024 12:53 Note Text: DEPARTMENT OF HOSPITAL MEDICINE PROGRESS NOTE SERVICE DATE: 06/19/2024 SERVICE TIME: 10:10 AM Hospital Medicine/Primary Attending: Don Edwards DO NIGHT AND WEEKEND COVERAGE: BOHEMIA COVERAGE: From 7am - 7pm, please call [phone] After 7pm, please call cross cover pager #[phone] Subjective INTERVAL HPI: Pt seen and examined. [...] 22 Gauge -- days Peripheral 06/12/24 0427 [facility] Short Right Forearm 20 Gauge 7 days Reviewed lines and needs to be continued: REASONS: Difficulty in obtaining/maintaining access DATA: Diagnostic tests reviewed for today's visit: Most recent labs and imaging results. 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 [place]. Will need to follow up with neurology [...] -- 06/11/24 0730 vte current anticoag therapy ([place]) 06/11/24 0730 activity - mobilize patient ([place]) VTE Prophylaxis: VTE prophylaxis appropriate Disposition: Acute Rehab Plan of care discussed with: Provider, RN, Patient SIGNATURE: Don Edwards DO PATIENT NAME: Mel Bradford DATE: June 19, 2024 TIME: 10:10 AM etx [id number] [facility] 06-18-2024 Note HNO ID: [id number] Author: ANABEL VEGA ? Service: Care Management Author Type: ? Type: Care Mgt Progress Note Filed: 06/18/2024 17:18 Note Text: [facility] PRECERT NOTE [employer] MEDICARE PPO approved Inpatient Rehab Facility for [facility]. Precert approved for dates: - 06/26/2024. For any additional questions regarding approvals, transport or care management needs, please contact the CM assigned to this patient in the Treatment Team. SIGNATURE: Anabel Vega DATE: June 18, 2024 TIME: 5:17 PM [facility] 06-18-2024 Note HNO ID: [id number] Author: MARK MINOR DO Service: Hospital Medicine Author Type: Physician Type: Progress Notes Filed: 06/18/2024 16:17 Note Text: DEPARTMENT OF HOSPITAL MEDICINE PROGRESS NOTE SERVICE DATE: 06/18/2024 SERVICE TIME: 4:06 PM Hospital Medicine/Primary Attending: Mark Minor DO NIGHT AND WEEKEND COVERAGE: After 7pm please page [phone] SUBJECTIVE: Patient seen examined at bedside. No [...] now event with subtherapeutic coumadin. [place]. Will need to follow up with neurology [...] Yes) Chronic atrial (more content not included)... [facility] 06-18-2024 Note HNO ID: [id number] Author: ROSLYN ROSE RN Service: Care Management Author Type: Registered Nurse Type: Care Mgt Progress Note Filed: 06/18/2024 12:32 Note Text: CARE MANAGEMENT PROGRESS NOTE SERVICE DATE: 06/18/2024 SERVICE TIME: 9:01 AM LOS: 7 days Chart reviewed. Insurance precert is pending for [facility]. Will need precert and cot transport. CM to follow for transitional care planning. ADDENDUM at 10:20 AM- Spoke with patient at bedside and provided update on pending precert. Received message from [facility] that insurance is requesting updated PT/OT evals and notified therapy. SIGNATURE: Roslyn Rose RN PATIENT NAME: Mel Bradford DATE: June 18, 2024 TIME: 9:01 AM PAGER/CONTACT #: [phone] [facility] 06-17-2024 Note HNO ID: [id number] Author: DON EDWARDS DO Service: Hospital Medicine Author Type: Physician Type: Progress Notes Filed: 06/17/2024 13:52 Note Text: DEPARTMENT OF HOSPITAL MEDICINE PROGRESS NOTE SERVICE DATE: 06/17/2024 SERVICE TIME: 11:15 AM Hospital Medicine/Primary Attending: Don Edwards DO NIGHT AND WEEKEND COVERAGE: BOHEMIA COVERAGE: From 7am - 7pm, please call [phone] After 7pm, please call cross cover pager #[phone] Subjective INTERVAL HPI: Pt seen and examined. [...] 22 Gauge -- days Peripheral 06/12/24 0427 [facility] Short Right Forearm 20 Gauge 5 days [...] eliquis. She was seen by therapy and [facility] facility was recommended. 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 [place]. Will need to follow up with neurology [...] -- 06/11/24 0730 vte current anticoag therapy ([place] 06/11/24 0730 activity - mobilize patient ([place]) VTE Prophylaxis: VTE prophylaxis appropriate Disposition: Acute Rehab Plan of care discussed with: Provider, RN, Patient SIGNATURE: Don Edwards DO PATIENT NAME: Mel Bradford DATE: June 17, 2024 TIME: 11:15 AM etx [id number] [facility] 06-16-2024 Note HNO ID: [id number] Author: DON EDWARDS DO Service: Hospital Medicine Author Type: Physician Type: Progress Notes Filed: 06/16/2024 13:06 Note Text: DEPARTMENT OF HOSPITAL MEDICINE PROGRESS NOTE SERVICE DATE: 06/16/2024 SERVICE TIME: 11:00 AM Hospital Medicine/Primary Attending: Don Edwards DO NIGHT AND WEEKEND COVERAGE: BOHEMIA COVERAGE: From 7am - 7pm, please call [phone] After 7pm, please call cross cover pager #[phone] Subjective INTERVAL HPI: Pt seen and examined. [...] 22 Gauge -- days Peripheral 06/12/24 0427 [facility] Short Right Forearm 20 Gauge 4 days Drain Duration Indwelling Urinary Catheter 06/11/24 1535 [facility] Ceballos 16 Fr 4 days Reviewed lines and needs to be continued: REASONS: Difficulty in obtaining/maintaining access DATA: Diagnostic tests reviewed for today's visit: Most recent labs and imaging results. 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 [place] Will need to follow up with neurology [...] -- 06/11/24 0730 vte current anticoag therapy ([place]) 06/11/24 0730 activity - mobilize patient ([place]) VTE Prophylaxis: VTE prophylaxis appropriate Disposition: Acute Rehab Plan of care discussed with: Provider, RN, Patient SIGNATURE: Don Edwards DO PATIENT NAME: Mel Bradford DATE: June 16, 2024 TIME: 11:00 AM etx [id number] [facility] 06-15-2024 Note HNO ID: [id number] Author: ERA TELLES MD Service: Hospital Medicine [...] on oxygen Plan for acute rehab [place] [facility] able to accept. Await precert Plan of care discussed with: Provider, RN, Patient. SIGNATURE: Era Telles MD PATIENT NAME: Mel Bradford DATE: June 15, 2024 TIME: 2:40 PM PAGER: [facility] 06-15-2024 Note HNO ID: [id number] Author: ISHAN October,.WELL SURVEYING ENGINEER Service: Urology Author Type: Nurse Practitioner Type: Plan of Care Filed: 06/15/2024 12:16 Note Text: Urology Plan of Care Note RN reached out asking about a void trial today. Notes pt has bloody urine. Pt seen at bedside. Pt eating lunch. Vanessa urine in tubing at this time. Will place PRN irrigation orders if urine is bloody again. Page urology resident transportation maintenance specialist if urine is grade 4 or higher. [...] unit. Ariana MercerOctN 06/15/2024 12:11 PM Page transportation maintenance specialist resident with questions [facility] 06-15-2024 Note HNO ID: [id number] Author: ROSLYN ROSE RN Service: Care Management Author Type: Registered Nurse Type: Care Mgt Progress Note Filed: 06/15/2024 09:38 Note Text: CARE MANAGEMENT PROGRESS NOTE SERVICE DATE: 06/15/2024 SERVICE TIME: 9:36 AM LOS: 4 days Chart reviewed. [facility] Will need precert and cot transport. Will place transfer envelope with chart that has signed portable DNR form attached. CM to follow for transitional care planning. SIGNATURE: Roslyn Rose RN PATIENT NAME: Mel Bradford DATE: June 15, 2024 TIME: 9:36 AM PAGER/CONTACT #: [phone] [facility] 06-14-2024 Note HNO ID: [id number] Author: JENNIFER FERNANDEZ, RADHA Service: Nursing Author Type: Registered Nurse Type: Nursing Progress Note Filed: 06/14/2024 17:35 Note Text: 1610: paged urology for voiding trial awaiting response [facility] 06-14-2024 Note HNO ID: [id number] Author: ERA TELLES MD Service: Hospital Medicine [...] on oxygen Plan for acute rehab [place] [facility] able to accept. Await precert Plan of care discussed with: Provider, RN, Patient. SIGNATURE: Era Telles MD PATIENT NAME: Mel Bradford DATE: June 14, 2024 TIME: 2:47 PM PAGER: [facility] 06-13-2024 Note HNO ID: [id number] Author: EDIE CASTAÑEDA MD Service: Hospital Medicine Author Type: Physician Type: Progress Notes Filed: 06/13/2024 14:18 Note Text: DEPARTMENT OF HOSPITAL MEDICINE Hospital Medicine/Primary Attending: Edie Castañeda MD NIGHT AND WEEKEND COVERAGE: After 7pm please page [phone] MEDICATIONS: Current Facility-Administered Medications Medication Dose Route [...] 4.0 4.3 CHLOR 101 101 101 CO2 ANION 11 13 12 BUN 16 12 14 CREAT 1.04* 1.02* 0.87 CHEM: Recent Labs 06/13/2413606/12/24 03506/10/24 233 ALB -- 3.6* 4.2 TPROT -- 6.4 [...] septum. Patient sees Dr. Padilla at [facility]. Cardiology saw patient in hospital, recommended Lovenox at discharge for lifelong. 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 Continue heparin drip. Will transition to therapeutic lovenox tonight (discussed patel and affordability with patient, lin (more content not included)... [facility] 06-13-2024 Note HNO ID: [id number] Author: CARLYLE GUZMÁN RN Service: Care Management [...] SIGNATURE: Carlyle Guzmán RN PATIENT NAME: Mel Bradford DATE: June 13, 2024 TIME: 12:54 PM PAGER/CONTACT #: [phone] [facility] 06-12-2024 Note HNO ID: [id number] Author: SHARONA MCDERMOTT MD Service: Hospital Medicine Author Type: Physician Type: Progress Notes Filed: 06/12/2024 17:08 Note Text: DEPARTMENT OF HOSPITAL MEDICINE Hospital Medicine/Primary Attending: Sharona Mcdermott MD NIGHT AND WEEKEND COVERAGE: After 7pm please page [phone] Saw patient at bedside with friend visiting. [...] septum. Patient sees Dr. Padilla at [facility]. Cardiology saw patient in hospital, [...] COPD Smoker Not (more content not included)... [facility] 06-12-2024 Note HNO ID: [id number] Author: DEBORAH PEACE RN Service: Care Management Author Type: Registered Nurse Type: Care Mgt Progress Note Filed: 06/12/2024 16:10 Note Text: CARE MANAGEMENT PROGRESS NOTE SERVICE DATE: 06/12/2024 SERVICE TIME: 4:09 PM LOS: 1 day Shubuta of Choice Given: Yes Level of Care Discussed: Inpatient Rehab Facility Financial Disclosure Provided: Yes Provider List: Rehab Facility Provider list within the patient's requested geographic area shared with the patient/family: Yes within: 15 miles of zip code: [address] Quality and resource use metrics shared with the patient that are relevant to the patient's goals of care and treatment preferences:: Yes Spoke with pt about pt/ot recs for acute rehab, pt agreeable to list , [facility] would be foc but pt would like to discuss acute rehab with her ; referral sent to [facility] SIGNATURE: Deborah Peace RN PATIENT NAME: Mel Bradford DATE: June 12, 2024 TIME: 4:09 PM PAGER/CONTACT #: [phone] [facility] 06-12-2024 Note HNO ID: [id number] Author: ANDREEA KING LSW Service: Care Management Author Type: Carbonizer Type: Care Mgt Progress Note Filed: 06/12/2024 [...] handout. SIGNATURE: SHAQUILLE Kaye PATIENT NAME: Mel Bradford DATE: June 12, 2024 TIME: 3:20 PM PAGER/CONTACT #: [phone] [facility] 06-11-2024 Note HNO ID: [id number] Author: CARLYLE GUZMÁN RN Service: Care Management Author Type: Registered Nurse Type: Care Mgt Initial Assessment Filed: 06/11/2024 15:43 Note Text: CARE MANAGEMENT: ASSESSMENT AND DISCHARGE PLAN SERVICE DATE: June 11, 2024 SERVICE TIME: 3:41 PM PCP: Jared Evans MD, MD Primary Contact: Extended Emergency Contact Information Primary Emergency Contact: Davide Bradford Mobile Relation: Son Secondary Emergency Contact: Nicolas Bradford Mobile Relation: Son Admission Status: Observation Insurance Provider: [employer] MEDICARE PPO Discharge Planning requested by: Per Department Practice Potential Transition Plans Home Advance Directives Current Advance Directive: None Bereavement Coordinator Attempted to Assist with AD Completion: Yes [...] General wellness, Be able to go home Shubuta of Choice Explained: Shubuta of Choice Given: No Reason Not Given: [...] 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 +PCP, +DME, +RX coverage, family to provide DC transportation. Will to continue to follow for transitional care planning. SIGNATURE: Carlyle Guzmán RN PATIENT NAME: Mel Bradford DATE: June 11, 2024 TIME: 3:41 PM CONTACT #: [phone] [facility] 06-11-2024 Note Spoke with Melany Evans's office and she stated that patient is scheduled in their office tomorrow, 06/12 for INR check. I faxed her out last progress note. I will inactivate patient from our service. [facility] 05-21-2024 History of Present illness Narrative INR reported on by Christin with [facility]. Christin can be reached at [phone] with questions. Images from the original note were not included. [facility] Anticoagulation Management Service ([facility]) Anticoagulation Clinic [address] [place] [address], [address], [place] [address] Megan Choi (1940) had INR completed by [...] back method. Time spent 10 Minutes Faye Bradford with Karuna PharmD, BCACP, CACP documented in this encounter [facility] 05-09-2024 History of Present illness Narrative Graciela from [facility] called in results. Images from the original note were not included. [facility] Anticoagulation Management Service ([facility]) Anticoagulation Clinic [address] [place] [address], [address], [place] [id number] Subjective HPI Mel (1940) had INR completed [...] positive findings Mel was instructed to notify [facility] of any unusual bruising or active/uncontrollable bleeding, medication changes within 24 hours, missed doses, dietary changes, illnesses or hospitalizations, and upcoming surgeries. Patient given verbal instructions. Patient expressed understanding utilizing the teach back method. Time spent 10 Minutes JOSE ANGEL Perez, PharmD, BCPS documented in this encounter [facility] 05-01-2024 History of Present illness Narrative [facility]- [facility]- [phone] Images from the original note were not included. [facility] Anticoagulation Management Service ([facility]) Anticoagulation Clinic [address] [place] [address], [address], [place] [address] Subjective TYSON Choi (1940) had INR completed [...] 5 mg daily Next INR Check: 05/08/2024 [facility] Patient educated on the following: dietary/lifestyle considerations and Vitamin K content and consistency Patient care coordination completed: N/A Patient given verbal instructions. Patient expressed understanding utilizing the teach back method. Time spent 10 Minutes Won Tipton RN staffed with Chalino Tolbert, BCACP, CACP documented in this encounter [facility] 04-27-2024 Telephone encounter Note Pt requested refill on warfarin 5mg. Sent to [facility]. Receipt confirmed by pharmacy. [facility] 04-27-2024 Miscellaneous Notes Pt requested refill on warfarin 5mg. Sent to [facility]. Receipt confirmed by pharmacy. documented in this encounter [facility] 04-25-2024 History of Present illness Narrative Vascular Surgery Office Visit Chief Complaint Patient presents with Follow-up 1st follow up RLE mechanical thrombectomy 04/06/24 ([facility]) HISTORY OF PRESENT ILLNESS: The patient is a 83 y.o. female who returns for follow-up for RLE mechanical venous thrombectomy with Dr. Blankenship on 04/06/24. Patient states overall her RLE has been doing well since surgery. She notes edema has improved and denies any significant pain. She is following with [facility] clinic for Warfarin, switched from Eliquis. She [...] SURGERY THROMBECTOMY Right 04/06/2024 RLE mechanical thrombectomy ([facility]) Current Medications: Prior to Admission medications Medication Sig Start Date End Date Taking? Authorizing Provider albuterol 108 (90 Base) MCG/ACT inhaler inhale 1 puff by mouth and INTO THE LUNGS every 6 hours if needed for shortness of breath 8/3/23 Historical Provider, ascorbic acid (Vitamin C) 500 [...] tablet (5mg) on 04/[address] [facility] pharmacy for further dosing 04/13/24 Jordin Roldan [...] min Stress: No Stress Concern Present (04/04/2024) [place] [employer] - Occupational Stress Questionnaire Feeling of Stress : Not at all Social Connections: Moderately Isolated (04/04/2024) Social Connection and Isolation Panel [NHANES] Frequency of Communication with Friends and Family: More than three times a week Frequency of Social Gatherings with Friends and Family: More than three times a week Attends Alevism Services: 1 to 4 times per year [...] thrombectomy -Recovering well -Recommend continuing warfarin per [facility] clinic -Continue to elevate as needed. -Discussed [...] (around 07/26/2024). . documented in this encounter [facility] 04-19-2024 History of Present illness Narrative Graciela with [facility] reports INR on vm Graciela can be reached at [phone] with any questions. Images from the original note were not included. [facility] Anticoagulation Management Service ([facility]) Anticoagulation Clinic [address] [place] [address], [address] [place] [address] Subjective TYSON Choi (1940) had INR completed [...] Perez, PharmD, BCPS documented in this encounter [facility] 04-14-2024 History of Present illness Narrative Placed new order for POCT INR, [facility] had not received. documented in this encounter [facility] 04-14-2024 Miscellaneous Notes Addended by: PATTY DUGGAN on: 04/16/2024 07:01 AM Modules accepted: Orders Addended by: HARMONY GREY on: 04/16/2024 08:41 AM Modules accepted: Orders documented in this encounter [facility] 04-14-2024 Note Addended by: PATTY DUGGAN on: 04/16/2024 07:01 AM Modules accepted: Orders [facility] 04-14-2024 Note Addended by: HARMONY GREY on: 04/16/2024 08:41 AM Modules accepted: Orders [facility] 04-14-2024 Note Addended by: PATTY DUGGAN on: 04/16/2024 07:01 AM Modules accepted: Orders [facility] 04-14-2024 Note Addended by: HARMONY GREY on: 04/16/2024 08:41 AM Modules accepted: Orders [facility] 04-14-2024 Note Addended by: PATTY DUGGAN on: 04/16/2024 07:01 AM Modules accepted: [facility] 04-14-2024 Note Addended by: HARMONY GREY on: 04/16/2024 08:41 AM Modules accepted: [facility] 04-13-2024 Nurse Note AVS explained. Discharged patient on stable condition. [facility] 04-13-2024 Nurse Note AVS explained. Discharged patient on stable condition. Instructed patient on warfarin dosing, she will take 7.5mg tomorrow, and 5mg Tuesday, and then we will check INR with home care on Tuesday as instructed. NO changes to heparin infusion at this time. documented in this encounter [facility] 04-13-2024 Nurse Note Instructed patient on warfarin dosing, she will take 7.5mg tomorrow, and 5mg Tuesday, and then we will check INR with home care on Tuesday as instructed. [facility] 04-13-2024 Note Formatting of this n ote might be different from the original. Phone conversation with the patient at their request from the [facility] regarding her established home care. Patient was wondering what services were being provided and what expectations to have for HHC. I explained her current ordered services and she stated she understood. Patient then asked if she could have meals delivered. I explained I would reach out to her social worker psychiatric here at the hospital for further guidance on resources when she gets home. Secure chat sent to KEESHA Basilio regarding this. [facility] 04-13-2024 Note Formatting of this n ote might be different from the original. Phone conversation with the patient at their request from the [facility] regarding her established home care. Patient was wondering what services were being provided and what expectations to have for HHC. I explained her current ordered services and she stated she understood. Patient then asked if she could have meals delivered. I explained I would reach out to her social worker psychiatric here at the hospital for further guidance on resources when she gets home. Secure chat sent to KEESHA Basilio regarding this. [facility] 04-13-2024 Miscellaneous Notes Phone conversation with the patient at their request from the [facility] regarding her established home care. Patient was wondering what services were being provided and what expectations to have for HHC. I explained her current ordered services and she stated she understood. Patient then asked if she could have meals delivered. I explained I would reach out to her social worker psychiatric here at the hospital for further guidance on resources when she gets home. Secure chat sent to KEESHA Basilio regarding this. Images from the original note were not included. Care Management Progress Note INR 2.3 today. Hep drip continued, plan to DC to [facility] today. Plan to have PT seen patient today per her request. Patient is active with [facility]. Await treatment plan and clinical progress. professional development manager will continue to follow for transitional [...] lower US, vasc consult" 04/06/2024 Bernie Cutler, ORTHODONTIST VICE PRESIDENT - WELL SURVEYING ENGINEER 04/04/2024 4:04 AM 04/06/2024 Bernie Cutler APRN [...] to oral when appropriate. Pt active with [facility]- will continue services at discharge. Await treatment plan and clinical progress. professional development manager will continue to follow for transitional care needs for discharge planning. Discharge Milestones and Delays Expected date/time: 04/13/2024 Expected discharge disposition: Home Health Services Discharge Milestones Place discharge order Complete med reconciliation Case mgmt discharge readiness Clinical Stability Diagnostic Workup Server Cashier Recommendations Facility Choice Selection Imaging Results PT [...] to oral when appropriate. Pt active with [facility]- will continue services at discharge. Await treatment plan and clinical progress. professional development manager will continue to follow for transitional [...] to oral when appropriate. Pt active with [facility]- will continue services at discharge. Await treatment plan and clinical progress. professional development manager will continue to follow for transitional care needs for discharge planning. Discharge Milestones and Delays Expected date/time: 04/11/2024 Expected discharge disposition: Home or Self Care Discharge Milestones Place discharge order Complete med reconciliation Case mgmt discharge readiness Clinical Stability Diagnostic Workup Server Cashier Recommendations Facility Choice Selection Imaging Results Patient [...] to coumadin. Consult Hemology. Pt active with [facility]- will continue services at discharge. Await treatment plan and clinical progress. professional development manager will continue to follow for transitional care needs for discharge planning. Discharge Milestones and Delays Expected date/time: 04/10/2024 Expected discharge disposition: Home or Self Care Discharge Milestones Place discharge order Complete med reconciliation Case mgmt discharge readiness Clinical Stability Diagnostic Workup Server Cashier Recommendations Facility Choice Selection Imaging Results Patient [...] vasc consult" 04/06/2024 Bernie Cutler APRN - WELL SURVEYING ENGINEER 04/04/2024 4:04 AM 04/06/2024 Bernie Cutler APRN - WELL SURVEYING ENGINEER 04/03/2024 11:17 PM Length of Stay (Days): [...] while transitioning to coumadin. Pt active with [facility]- will continue services at discharge. Discharge [...] vasc consult" 04/06/2024 Bernie Cutler APRN - WELL SURVEYING ENGINEER 04/04/2024 4:04 AM 04/06/2024 Bernie Cutler APRN - WELL SURVEYING ENGINEER 04/03/2024 11:17 PM Length of Stay (Days): 3 GMLOS: 3.1 Patient report called to 4N RN and denies any further questions. Patient resting comfortably and no signs of distress. Per resident patient to lay flat for 2 hours and restart heparin GTT at 1215. Transport notified. SW assisted patient with completion of Health Care Power of Head Insulation Board Saw Operator. One copy placed in patient chart, one copy sent to medical records and two copies given to patient. Requested by patient, while at bedside this SW spoke to patient's son via patients phone to explain that HCPOA was being completed by patient. Patients son Bacel Bradford ([phone]) agreed to be this patients agent on [...] technique was used to place a 5 Tuvaluan sheath. A Bentson wire was able to be advanced in the inferior vena cava without difficulty. The 5 Tuvaluan sheath was then upsized to a 16 Tuvaluan sheath and the penumbra flash suction thrombectomy device was prepared per intermediate accountant's instructions. The patient was also given 5000 units of heparin for systemic anticoagulation at this time. The Penumbra device was then inserted through the 16 Tuvaluan sheath and a suction thrombectomy was performed [...] device was removed as was the 16 Tuvaluan sheath and an 0 silk suture was [...] Procedures RIGHT LOWER EXTREMITY VENOUS MECHANICAL THROMBECTOMY 62465 - NC PRQ TRANSLUMINAL MECHANICAL THROMBECTOMY VEIN Surgeons * Kristyn Blankenship - Primary Procedure Summary Anesthesia: General ASA: III Estimated Blood Loss: 300 mL Drains: * None in log * Staff: District Branch Manager: Negrita Rey RN; Amira Burton RN Scrub [...] from home alone- indep and active with [facility]- will return. Discharge Milestones and Delays [...] vasc consult" 04/06/2024 Bernie Cutler APRN - WELL SURVEYING ENGINEER 04/04/2024 4:04 AM 04/06/2024 Bernie Cutler APRN [...] Limits Permission given to speak with patient field representative/caregiver as indicated: Confirmation of Payer with patient/family: Yes Payer Name: [employer] [place]: No Confirmation of Primary Care Physician: Confirmed [...] Living Prescription Coverage: Yes Pharmacy Used: [facility] Medication Management: Independent Transportation/Shopping: Assistance Provider Transportation/Shopping Assistance Provider Name: natividad Transportation Mode: Car Needs Assistance with Transportation at Discharge: No Meal Preparation: Independent Laundry/Cleaning: Independent Finances/Bill Paying: Independent Communication: Independent Types of Care Services/Equipment Utilized Care Services: Skilled Home Health Services Care Services Provider Name: [facility] Dialysis Type: NA Durable Medical Equipment: [...] home alone and indep. Pt active with [facility]- liaison following for continued services. Pt uses walker/cane at baseline. Pt has insurance, PCP and able to obtain meds. Pt's friends help with transportation. No needs antic at discharge. Virginia Rehman RN Start PACC Note Home Health Referral Educated patient on Home Care and services available. Patient offered choice of available HHC and agreeable to SN/PT services with [facility] - Home [facility]. Care Types: [...] is noted as yes - consider a BELT FIXER evaluation once the patient returns home. START PATIENT REGISTRATION INFORMATION Order Information Order Signing Physician: Robert Mullins MD Service Ordered RN ?: Yes Service Ordered PT ?: Yes Service Ordered OT ?: No Service Ordered ST ?: No Service Ordered BELT FIXER?:No Service Ordered WHEELCHAIR VAN OPERATOR FIRST RESPONDER?: No Following Physician: Jared Evans MD Following Physician Overseeing Physician: Jared Evans MD (Required for Residents only) Agreeable to Follow? Yes Date/Time of Call 04/04/24 11:36 AM, Spoke with: Patient is a DEB. Care Coordination Same Day SOC?: No Primary Care Physician: Jared Evans MD Primary Care Physician Primary Care Physician Address: [address] [place] [address] Visit Instructions: N/A Service Discharge Location Type: Home with Home Care Service Facility Name: N/A Service Floor Facility: N/A Service Room No: N/A Demographics Patient Last Name: Jose Alberto Patient First Name: Mel Language/Communication Barrier: none Service Address: [address] Service City: [place] Service ST: [place] Service ZIP: [address] Service Other phone numbers: Telephone Information: Emergency Contact: Extended Emergency Contact Information Primary Emergency Contact: Anum Villafana Mobile Relation: Friend Secondary Emergency Contact: José Miguel Bradford/ Fidel Mobile Relation: Child Admission Information Admit Date: 04/03/2024 Patient status at discharge: Inpatient Admitting Diagnosis: Right leg pain [M79.604] Peripheral arterial disease (HCC) [I73.9] Right leg weakness [R29.898] Atrial fibrillation, unspecified type (HCC) [I48.91] Caregiver Information Caregiver First Name: na Caregiver Last Name: na Caregiver Relationship to Patient na Caregiver Phone Number: na Caregiver Notes: N/A [employer] List No END PATIENT REGISTRATION INFORMATION Pt [...] intervention. Discharge Date: pending Referral Source-PACC: (Hospital/Unit): [facility] / N4-461/N4-461 B End PACC Note The patient is Moderately Stable - Low risk of patient condition declining or worsening The patient's goals for the shift include safety The clinical goals for the shift include therapeutic aptt Patient is currently active with [facility] [employer] [facility]. The patients current certification period will on 05/18/24. The patient is currently receiving PT services through the agency. Plant Anatomy Teacher to continue to follow. ADVANCED CARE PLANNING Mel Pop : 1940 Primary Care Physician: Jared Evans MD The patient and/or family/surrogate voluntarily agreed to participate in ACP services. Patient s cognitive capacity: intact Code Status: [ ] [FULL CODE - Continue all advanced life support: CPR,intubation,invasive procedures] [X] [DNR-CCA - DO NOT do CPR, intubation] [_] [DNR-PASSENGER SCREENER - Comfort care only] [_] DNR form [...] of life care, with patient and/or family/surrogate. Andriy Avelar DO Acute [facility] 04/04/2024, 5:40 AM The [...] barriers include . documented in this encounter [facility] 04-13-2024 Note [facility] 04-13-2024 Hospital course Narrative Discharge Summary Mel [...] superficial femoral artery occlusion and transferred to [facility]. She underwent venous thrombectomy with [...] Pharmacy RECOMMENDED NEXT STEPS: Follow up with [facility] clinic and vascular DISCHARGE MEDICATIONS: Medication [...] tablet (5mg) on 04/[address] [facility] pharmacy for further dosing CONTINUE taking these medications albuterol 108 (90 Base) MCG/ACT inhaler ascorbic acid 500 MG tablet Commonly known as: Vitamin C lisinopril 5 MG tablet pantoprazole 40 MG EC tablet Commonly known as: ProtoNix Trelegy Ellipta 100-62.5-25 MCG/ACT aerosol powder Generic drug: Sjfxkovhhkw-Xvrtwdssk-Egprbn STOP taking these medications Eliquis 5 MG tablet Generic drug: apixaban Where to Get Your Medications These medications were sent to [facility] [address] [place] [address] Hours: Tuesday to Tuesday 10 am to 6 pm oxyCODONE 5 MG immediate release tablet warfarin 5 MG tablet DIET: Adult diet Regular ACTIVITY: No restriction. COMPLEXITY OF FOLLOW UP: [x] Moderate Complexity: follow up within 7-14 calendar days (99071) [] Severe Complexity: follow up within 7 calendar days (01937) FOLLOW UP TESTING, PENDING RESULTS OR REFERRALS AT TRANSITIONAL CARE VISIT: [] Yes [x] No PENDING STUDIES: none DISPOSITION: Home with Home Health Care FACILITY/HOME CARE AGENCY NAME: [facility] Follow up with Kristyn Blankenship MD [address] [phone] Schedule an appointment as soon as possible for a visit [facility] for INR check next week INSTRUCTIONS [...] 04/13/2024, 2:20 PM documented in this encounter [facility] 04-13-2024 History of Present illness Narrative Images from the original note were not included. PHYSICAL THERAPY [facility] Treatment Note Name/MRN: Mel Pop ([id number]) Date of : 1940 Age: 83 y.o. [...] Distance (ft): 12 Quality of gait: slow marianne, decreased step length, Ambulation 2 Assistive device(s) used: Front wheeled walker Assist level: Supervision Distance (ft): 100ft Quality of gait: slower marianne, no LOB with walker. Balance During Session: [...] 1045 Minutes 13 (Gait) Christin Gu PT [facility] Anticoagulation Management Service ([facility]) Inpatient Warfarin Consult HPI: Mel Pop is a 83 y.o. female admitted on 04/03/2024 for Peripheral arterial disease (HCC). Past Medical History: Diagnosis Date Asthma Essential hypertension 03/07/2020 GERD (gastroesophageal reflux disease) Hiatal hernia Pure hypercholesterolemia 03/07/2020 Patient is newly referred to the [facility] clinic for warfarin management. Pt was referred [...] and adjust dose accordingly. 3. Will facilitate [facility] follow-up upon discharge. Patient is agreeable to [facility] follow up. If discharged today, recommend sending home with 5mg tablets with instructions to take 5mg Tuesday (if not already received in hospital), 7.5mg Tuesday, 5mg Tuesday, and will recheck INR Tuesday via home care. 4. Provided warfarin education. Marybeth Rahman RPh, PharmD [facility] Consult Service is available daily [phone] via [employer] Secure Chat. If no response, please page [phone]. Hospitalist Progress Note 04/13/2024 Subjective: Admit Date: 04/03/2024 PCP: Jared Evans MD Room#: N4-461/N4-469 B BRIEF HOSPITAL COURSE: 83-year-old woman with history of A-fib on Eliquis, tobacco use, hypertension, hyperlipidemia, asthma, hiatal hernia, GERD presented to [facility] on 04[facility]03 with right leg pain, numbness, tingling causing difficulty ambulating. CTA of lower extremity showed severe atherosclerotic disease with bilateral superficial femoral artery occlusion and transferred to [facility]. She underwent venous thrombectomy with [...] warfarin and close OP follow up with [facility]. Case and plan discussed with patient and [...] [phone] BMP: Recent Labs 04/11/24 0027 [id number]/[id number] NA 134* 135 135 K 4.0 3.9 [...] person, place, and time. Medications: Scheduled PRN Leipqjbefeu-Zlpzyuvmm-Iulzod, 1 puff, Inhalation, Daily influenza, 0.5 mL, [...] Extended Emergency Contact Information Primary Emergency Contact: Anum Villafana Mobile Relation: Friend Secondary Emergency Contact: José Miguel Bradford/ Fidel Mobile Relation: Child Jordin Roldan MD Division of Hospitalist Medicine [facility] Hospitalist Progress Note 04/12/2024 Subjective: Admit [...] superficial femoral artery occlusion and transferred to [facility]. She underwent venous thrombectomy with [...] person, place, and time. Medications: Scheduled PRN Tvabkieyohs-Ilnqnpxle-Rgsqmu, 1 puff, Inhalation, Daily influenza, 0.5 mL, [...] Extended Emergency Contact Information Primary Emergency Contact: Anum Villafana Mobile Relation: Friend Secondary Emergency Contact: José Miguel Bradford/ Fidel Mobile Relation: Child Jordin Roldan MD Division of Hospitalist Medicine [facility] Anticoagulation Management Service ([facility]) Inpatient Warfarin Consult HPI: Mel Pop is a 83 y.o. female admitted on 04/03/2024 for Peripheral arterial disease (HCC). Past Medical History: Diagnosis Date Asthma Essential hypertension 03/07/2020 GERD (gastroesophageal reflux disease) Hiatal hernia Pure hypercholesterolemia 03/07/2020 Patient is newly referred to the [facility] clinic for warfarin management. Pt was referred [...] PharmD [facility] Consult Service is available daily [phone] via [employer]. If no response, please page [phone]. Images from the original note were not included. OCCUPATIONAL THERAPY [facility] Initial Evaluation Name/MRN: Mel Pop ([id number]) Evaluation Date: 04/11/2024 Date of : 1940 Admission Date: 04/03/2024 5:47 PM Age: 83 y.o. 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 Cellulitis 05/18/2022 Nicotine use disorder 05/18/2022 Irritable bowel syndrome with diarrhea 03/07/2020 Microscopic hematuria 03/07/2020 Left retinal detachment 03/07/2020 Hyperglycemia 03/07/2020 Osteopenia of left femoral neck 03/07/2020 intermediate current use of anticoagulant therapy 03/07/2020 Seasonal allergies 03/07/2020 Chronic renal insufficiency, stage III (moderate) ([facility]) 03/07/2020 Major depression, single episode, in complete remission ([facility]) 03/07/2020 Gastroesophageal reflux disease without esophagitis 03/07/2020 Essential hypertension 03/07/2020 Pure hypercholesterolemia 03/07/2020 Overweight 03/07/2020 Psoriasis 03/07/2020 History of cerebrovascular accident 03/07/2020 Atrial fibrillation ([facility]) 03/07/2020 Chronic obstructive pulmonary disease ([facility]) 03/07/2020 Finger osteomyelitis, right ([facility]) 03/06/2020 Medical Precautions: No active [...] Responsibilities: Independent Receives Help From: None Active Criminal Psychologist: Yes Prior Level of Function ADL Assistance: [...] of Care supervision is transferred to a [facility] Therapy Services Occupational Therapist. Goals and/or [...] superficial femoral artery occlusion and transferred to [facility]. She underwent venous thrombectomy with [...] person, place, and time. Medications: Scheduled PRN Evyvveckfxq-Rlshasrdb-Lcljnk, 1 puff, Inhalation, Daily influenza, 0.5 mL, [...] Extended Emergency Contact Information Primary Emergency Contact: Anum Villafana Mobile Relation: Friend Secondary Emergency Contact: José Miguel Bradford/ Fidel Mobile Relation: Child Jordin Roldan MD Division of Hospitalist Medicine [facility] Images from the original note were not included. PHYSICAL THERAPY [facility] Initial Evaluation Name/MRN: Mel Pop ([id number]) Evaluation Date: 04/11/2024 Date of : 1940 Admission Date: 04/03/2024 5:47 PM Age: 83 y.o. Room[facility]Bed: [facility] B Discharge Recommendation: Home with Home [...] 03/07/2020 Osteopenia of left femoral neck 03/07/2020 medical terminologist current use of anticoagulant therapy 03/07/2020 Seasonal allergies 03/07/2020 Chronic renal insufficiency, stage III (moderate) [facility] [facility] 03/07/2020 Major depression, single episode, in complete remission ([facility]) 03/07/2020 Gastroesophageal reflux disease without esophagitis 03/07/2020 Essential hypertension 03/07/2020 Pure hypercholesterolemia 03/07/2020 Overweight 03/07/2020 Psoriasis 03/07/2020 History of cerebrovascular accident 03/07/2020 Atrial fibrillation ([facility]) 03/07/2020 Chronic obstructive pulmonary disease ([facility]) 03/07/2020 Finger osteomyelitis, right ([facility]) 03/06/2020 Medical Precautions: No active [...] Distance (ft): 14 Quality of gait: slower marianne, decreased step length, Outcome Measures AM-PAC How [...] Raw Score (No Stairs) : 19 JH-HLM -M Score: Walked 10 steps or more (i.e. [...] of Care supervision is transferred to a [facility] Therapy Services Physical Therapist. Goals and/or treatment plan was established in collaboration with patient/family/other representatives. [facility] Anticoagulation Management Service ([facility]) Inpatient Warfarin [...] PharmD [facility] Consult Service is available daily [phone] via Attune. If no response, please page [phone]. Hospitalist Progress Note 04/10/2024 Subjective: Admit Date: [...] superficial femoral artery occlusion and transferred to [facility]. She underwent venous thrombectomy with [...] Extended Emergency Contact Information Primary Emergency Contact: Anum Villafana Mobile Relation: Friend Secondary Emergency Contact: José Miguel Bradford/ Fidel Mobile Relation: Child Jordin Roldan MD Division of Hospitalist Medicine Contact [employer] Nutrition update completed. Chart reviewed. Patient to be monitored and followed by the diet analytical laboratory technician. Jessica Doran DT [facility] Anticoagulation Management Service ([facility]) Inpatient Warfarin Consult HPI: Mel Pop is a 83 y.o. female admitted on 04/03/2024 for Peripheral arterial disease (HCC). Past Medical History: Diagnosis Date Asthma Essential hypertension 03/07/2020 GERD (gastroesophageal reflux disease) Hiatal hernia Pure hypercholesterolemia 03/07/2020 Patient is newly referred to the [facility] clinic for warfarin management. Pt was referred [...] PharmD [facility] Consult Service is available daily [phone] via [employer] Secure Chat. If no response, please page [phone]. Hospitalist Progress Note 04/09/2024 Assessment/Plan: Data: (CAT1) [...] Date: 04/03/2024 PCP: Jared Evans MD Room#: N4-264/N4-515 B Brief Hospital course: Patient is an 83-year-old female with history of A-fib on Eliquis, significant tobacco use, HTN, HLD, asthma, hiatal hernia, GERD who presented to [place] 04/03 with right leg pain, numbness, tingling causing difficulty ambulating. CTA of LE, showing severe LE atherosclerotic disease with bilateral superficial femoral artery occlusion, and was transferred to [facility] for admission. Interval History: Mild [...] Extended Emergency Contact Information Primary Emergency Contact: Anum Villafana Mobile Relation: Friend Secondary Emergency Contact: José Miguel Bradford/ Fidel Mobile Relation: Child Robert Mullins MD Division of Hospitalist Medicine [facility] Anticoagulation Management Service ([facility]) Inpatient Warfarin Consult HPI: Mel Pop is a 83 y.o. female admitted on 04/03/2024 for Peripheral arterial disease (HCC). Past Medical History: Diagnosis Date Asthma Essential hypertension 03/07/2020 GERD (gastroesophageal reflux disease) Hiatal hernia Pure hypercholesterolemia 03/07/2020 Patient is newly referred to the [facility] clinic for warfarin management. Pt was referred [...] PharmD [facility] Consult Service is available daily [phone] via [employer] Secure Chat. If no response, please page [phone]. Hospitalist Progress Note 04/08/2024 Assessment/Plan: Data: (CAT1) [...] asthma, hiatal hernia, GERD who presented to [place] 04/03 with right leg pain, numbness, tingling causing difficulty ambulating. CTA of LE, showing severe LE atherosclerotic disease with bilateral superficial femoral artery occlusion, and was transferred to [facility] for admission. Interval History: Pain [...] Extended Emergency Contact Information Primary Emergency Contact: VasughassanAnum Mobile Relation: Friend Secondary Emergency Contact: José Miguel Bradford/ Fidel Mobile Relation: Child Taranjot Elise Mullins MD Division of Hospitalist Medicine [facility] Anticoagulation Management Service ([facility]) Inpatient Warfarin [...] Will determine if pt is agreeable to [facility] follow-up. 4. Will provide warfarin education. Michelle Lugo RPh, PharmD [facility] Consult Service is available daily [phone] via [employer] Secure Chat. If no response, please page [phone]. Hospitalist Progress Note 04/07/2024 Assessment/Plan: Data: (CAT1) [...] Anticipate DC pending clinical improvement and pain., Server Cashier recommendations, Coumadin bridge with heparin Total time [...] asthma, hiatal hernia, GERD who presented to [place] 04/03 with right leg pain, numbness, tingling causing difficulty ambulating. CTA of LE, showing severe LE atherosclerotic disease with bilateral superficial femoral artery occlusion, and was transferred to [facility] for admission. Interval History: Pain [...] LABS: CBC: Recent Labs 04/05/24 0739 04/06/24 0704/07/24250 WBC 6.1 4.5 4.0 RBC 3.45* 3.20* [...] Extended Emergency Contact Information Primary Emergency Contact: Anum Villafana Mobile Relation: Friend Secondary Emergency Contact: Maxwell Bradfordjoe/ Fidel Mobile Relation: Child Robert Mullins MD Division of Hospitalist Medicine [facility] Anticoagulation Management Service ([facility]) Inpatient Warfarin Consult HPI: Mel Pop is a 83 y.o. female admitted on 04/03/2024 for Peripheral arterial disease (HCC). Past Medical History: Diagnosis Date Asthma Essential hypertension 03/07/2020 GERD (gastroesophageal reflux disease) Hiatal hernia Pure hypercholesterolemia 03/07/2020 Patient is newly referred to the [facility] clinic for warfarin management. Pt was referred [...] PharmD [facility] Consult Service is available daily [phone] via [employer] Secure Chat. If no response, please page [phone]. Department of General Surgery Daily Progress Note [...] follow-up 2wk placed in chart for Dr Sulaiman velazquez D/w George Sarah MD PGY5, General Surgery Pager #[phone] CDI Query Response: Acute thrombus within the [...] Anticipate DC pending clinical improvement and pain., Server Cashier recommendations, Coumadin bridge with heparin Total time [...] Date: 04/03/2024 PCP: Jared Evans MD Room#: N4-387/N4-613 B Brief Hospital course: Patient is an 83-year-old female with history of A-fib on Eliquis, significant tobacco use, HTN, HLD, asthma, hiatal hernia, GERD who presented to [place] 04/03 with right leg pain, numbness, tingling causing difficulty ambulating. CTA of LE, showing severe LE atherosclerotic disease with bilateral superficial femoral artery occlusion, and was transferred to [facility] for admission. Interval History: Has [...] Extended Emergency Contact Information Primary Emergency Contact: Anum Villafana Mobile Relation: Friend Secondary Emergency Contact: Maxwell Bradfordjoe/ Fidel Mobile Relation: Child Robert Mullins MD Division of Hospitalist Medicine [facility] Department of General Surgery Daily Progress [...] questions have been answered to their satisfaction. [facility] Anticoagulation Management Service ([facility]) Inpatient Warfarin Consult HPI: Mel Pop is a 83 y.o. female admitted on 04/03/2024 for Peripheral arterial disease (HCC). Past Medical History: Diagnosis Date Asthma Essential hypertension 03/07/2020 GERD (gastroesophageal reflux disease) Hiatal hernia Pure hypercholesterolemia 03/07/2020 Patient is newly referred to the [facility] clinic for warfarin management. Pt was referred [...] held yesterday for thrombectomy today. Per Dr. Mullins, GHULAM to resume warfarin tonight - will give 2.5mg. Bridging with heparin drip. 2. Will monitor for s/s of bleeding and drug interactions and adjust dose accordingly. 3. Will determine if pt is agreeable to [facility] follow-up 4. Will provide warfarin education. Marybeth Rahman RPh, PharmD [facility] Consult Service is available daily [phone] via [employer] Secure Chat. If no response, please page [phone]. Hospitalist Progress Note 04/05/2024 Assessment/Plan: Data: (CAT1) [...] Discharge Disposition: Anticipate DC pending clinical improvement, pmo consultant recommendations Total time spent (which include [...] Date: 04/03/2024 PCP: Jared Evans MD Room#: N4-550/N4-973 B Brief Hospital course: Patient is an 83-year-old female with history of A-fib on Eliquis, significant tobacco use, HTN, HLD, asthma, hiatal hernia, GERD who presented to [place] 04/03 with right leg pain, numbness, tingling causing difficulty ambulating. CTA of LE, showing severe LE atherosclerotic disease with bilateral superficial femoral artery occlusion, and was transferred to [facility] for admission. Interval History: Had [...] Extended Emergency Contact Information Primary Emergency Contact: Anum Villafana Mobile Relation: Friend Secondary Emergency Contact: BradfordJosé Miguel/ Fidel Mobile Relation: Child Robert Mullins MD Division of Hospitalist Medicine [facility] Nutrition rescreen completed. Chart reviewed. Patient to be monitored and followed by the diet analytical laboratory technician. FADI Harmon [facility] Anticoagulation Management Service ([facility]) Inpatient Warfarin Consult HPI: Mel Pop is a 83 y.o. female admitted on 04/03/2024 for Peripheral arterial disease (HCC). Past Medical History: Diagnosis Date Asthma Essential hypertension 03/07/2020 GERD (gastroesophageal reflux disease) Hiatal hernia Pure hypercholesterolemia 03/07/2020 Patient is newly referred to the [facility] clinic for warfarin management. Pt was referred by SEBASTIAN Tate CNP. Pt is on warfarin for DVT and has a goal INR 2.0 - 3.0. Patient also has a history of afib. Duration of therapy= likely indefinite. Reason for warfarin instead of DOAC: Eliquis failure PCP: Jared Evans MD S/sx of bleeding= none Interacting medications= heparin drip Labs: Recent Labs 04/03/2404/04/24 0608 04/05/24 0739 HGB 12.7 12.5 10.6* [...] PharmD [facility] Consult Service is available daily [phone] via [employer] Secure Chat. If no response, please page [phone]. Department of General Surgery Daily Progress Note [...] Naik MD General Surgery PGY-4 Pager # [phone] Associated attestation - Kristyn Blankenship MD - [...] NPO at midnight for possible thrombectomy tomorrow. [facility] Anticoagulation Management Service ([facility]) Inpatient Warfarin Consult HPI: Mel Pop is a 83 y.o. female admitted on 04/03/2024 for Peripheral arterial disease (HCC). Past Medical History: Diagnosis Date Asthma Essential hypertension 03/07/2020 GERD (gastroesophageal reflux disease) Hiatal hernia Pure hypercholesterolemia 03/07/2020 Patient is newly referred to the [facility] clinic for warfarin management. Pt was referred [...] Will determine if pt is agreeable to [facility] follow-up 4. Will provide warfarin education. Thank you for this consult Marybeth Rahman RPh, PharmD [facility] Consult Service is available daily [phone] via [employer] Secure [employer]. If no response, please page [phone]. Nonbillable encounter. Patient was seen by provider earlier today Patient is an 83-year-old female with history of A-fib on Eliquis, significant tobacco use, HTN, HLD, asthma, hiatal hernia, GERD who presented to [place] 04/03 with right leg pain, numbness, tingling causing difficulty ambulating. CTA of LE, showing severe LE atherosclerotic disease with bilateral superficial femoral artery occlusion, and was transferred to [facility] for admission. Severe bilateral LE [...] Eliquis -Smoking cessation documented in this encounter [facility] 04-13-2024 Note Formatting of this n ote is different from the original. Images from the original note were not included. Care Management Progress Note INR 2.3 today. Hep drip continued, plan to DC to [facility] today. Plan to have PT seen patient today per her request. Patient is active with [facility]. Await treatment plan and clinical progress. professional development manager will continue to follow for transitional [...] vasc consult" 04/06/2024 Bernie Cutler APRN - WELL SURVEYING ENGINEER 04/04/2024 4:04 AM 04/06/2024 Bernie Cutler APRN - WELL SURVEYING ENGINEER 04/03/2024 11:17 PM Length of Stay (Days): 10 GMLOS: 4 [facility] 04-13-2024 Note Formatting of this n ote is different from the original. Images from the original note were not included. Care Management Progress Note INR 2.3 today. Hep drip continued, plan to DC to [facility] today. Plan to have PT seen patient today per her request. Patient is active with [facility]. Await treatment plan and clinical progress. professional development manager will continue to follow for transitional [...] vasc consult" 04/06/2024 Bernie Cutler APRN - WELL SURVEYING ENGINEER 04/04/2024 4:04 AM 04/06/2024 Bernie Cutler APRN - WELL SURVEYING ENGINEER 04/03/2024 11:17 PM Length of Stay (Days): 10 GMLOS: 4 [facility] 04-13-2024 Plan of care note The [...] plan, medications, and discharge instructions Outcome: Progressing [facility] 04-12-2024 Plan of care note Problem: [...] risk of patient condition declining or worsening [facility] 04-12-2024 Note Formatting of this n ote is different from the original. Images from the original note were not included. Care Management Progress Note Patent currently still on Hep Drip, INR 1.9. Will convert to oral when appropriate. Pt active with [facility]- will continue services at discharge. Await treatment plan and clinical progress. professional development manager will continue to follow for transitional care needs for discharge planning. Discharge Milestones and Delays Expected date/time: 04/13/2024 Expected discharge disposition: Home Health Services Discharge Milestones Place discharge order Complete med reconciliation Case mgmt discharge readiness Clinical Stability Diagnostic Workup Server Cashier Recommendations Facility Choice Selection Imaging Results PT [...] vasc consult" 04/06/2024 Bernie Cutler APRN - WELL SURVEYING ENGINEER 04/04/2024 4:04 AM 04/06/2024 Bernie Cutler APRN - WELL SURVEYING ENGINEER 04/03/2024 11:17 PM Length of Stay (Days): 9 GMLOS: 4 [facility] 04-12-2024 Note Formatting of this n ote is different from the original. Images from the original note were not included. Care Management Progress Note Patent currently still on Hep Drip, INR 1.9. Will convert to oral when appropriate. Pt active with [facility]- will continue services at discharge. Await treatment plan and clinical progress. professional development manager will continue to follow for transitional care needs for discharge planning. Discharge Milestones and Delays Expected date/time: 04/13/2024 Expected discharge disposition: Home Health Services Discharge Milestones Place discharge order Complete med reconciliation Case mgmt discharge readiness Clinical Stability Diagnostic Workup Server Cashier Recommendations Facility Choice Selection Imaging Results PT [...] vasc consult" 04/06/2024 Bernie Cutler APRN - WELL SURVEYING ENGINEER 04/04/2024 4:04 AM 04/06/2024 Bernie Cutler APRN - SHAMIKA 04/03/2024 11:17 PM Length of Stay (Days): 9 GMLOS: 4 T [facility] 04-12-2024 Plan of care note The patient [...] medications, and discharge instructions Outcome: Progressing T [facility] 04-11-2024 Note Formatting of this n ote is different from the original. Images from the original note were not included. Care Management Progress Note Patent currently still on Hep Drip, INR 1.9. Will convert to oral when appropriate. Pt active with [facility]- will continue services at discharge. Await treatment plan and clinical progress. professional development manager will continue to follow for transitional [...] vasc consult" 04/06/2024 Bernie Cutler APRN - WELL SURVEYING ENGINEER 04/04/2024 4:04 AM 04/06/2024 Bernie Cutler APRN - WELL SURVEYING ENGINEER 04/03/2024 11:17 PM Length of Stay (Days): 8 GMLOS: 4 [facility] 04-11-2024 Note Formatting of this n ote is different from the original. Images from the original note were not included. Care Management Progress Note Patent currently still on Hep Drip, INR 1.9. Will convert to oral when appropriate. Pt active with [facility]- will continue services at discharge. Await treatment plan and clinical progress. professional development manager will continue to follow for transitional [...] vasc consult" 04/06/2024 Bernie Cutler APRN - WELL SURVEYING ENGINEER 04/04/2024 4:04 AM 04/06/2024 SEBASTIAN Herrera WELL SURVEYING ENGINEER 04/03/2024 11:17 PM Length of Stay (Days): 8 GMLOS: 4 [facility] 04-11-2024 Plan of care note Problem: [...] risk of patient condition declining or worsening [facility] 04-11-2024 Plan of care note The [...] level or baseline comfort level Outcome: Progressing [facility] 04-10-2024 Plan of care note Problem: Pain [...] risk of patient condition declining or worsening T [facility] 04-10-2024 Note Formatting of this n ote is different from the original. Images from the original note were not included. Care Management Progress Note Patient currently still on Heparin Drip, INR 1.6 today.Will convert to oral when appropriate. Pt active with [facility]- will continue services at discharge. Await treatment plan and clinical progress. professional development manager will continue to follow for transitional care needs for discharge planning. Discharge Milestones and Delays Expected date/time: 04/11/2024 Expected discharge disposition: Home or Self Care Discharge Milestones Place discharge order Complete med reconciliation Case mgmt discharge readiness Clinical Stability Diagnostic Workup Server Cashier Recommendations Facility Choice Selection Imaging Results Patient [...] vasc consult" 04/06/2024 Bernie Cutler APRN - WELL SURVEYING ENGINEER 04/04/2024 4:04 AM 04/06/2024 Bernie Cutler APRN - WELL SURVEYING ENGINEER 04/03/2024 11:17 PM Length of Stay (Days): 7 GMLOS: 4 [facility] 04-10-2024 Note Formatting of this n ote is different from the original. Images from the original note were not included. Care Management Progress Note Patient currently still on Heparin Drip, INR 1.6 today.Will convert to oral when appropriate. Pt active with [facility]- will continue services at discharge. Await treatment plan and clinical progress. professional development manager will continue to follow for transitional care needs for discharge planning. Discharge Milestones and Delays Expected date/time: 04/11/2024 Expected discharge disposition: Home or Self Care Discharge Milestones Place discharge order Complete med reconciliation Case mgmt discharge readiness Clinical Stability Diagnostic Workup Server Cashier Recommendations Facility Choice Selection Imaging Results Patient Education Complete Expected Discharge History Expected Date/Time Set By Reviewed At 04/11/2024 Cathi Avila RN 04/10/2024 8:41 AM hep gtt- transitioning to coumadin" 04/10/2024 Virginia Rehman RN 04/09/2024 8:13 AM 04/08/2024 Vigrinia Rehman RN 04/06/2024 8:13 AM hep gtt, poss thrombectomy 04/07/2024 Virginia Rehman RN 04/05/2024 8:03 AM hep gtt, poss thrombectomy tomorrow" 04/06/2024 Virginia Rehman RN 04/04/2024 8:48 AM hep gtt, oliva lower [place], vasc consult" 04/06/2024 Bernie Cutler APRN - WELL SURVEYING ENGINEER 04/04/2024 4:04 AM 04/06/2024 Bernie Cutler APRN - WELL SURVEYING ENGINEER 04/03/2024 11:17 PM Length of Stay (Days): 7 GMLOS: 4 [facility] 04-09-2024 Note Formatting of this n ote is different from the original. Images from the original note were not included. Care Management Progress Note Remains on heparin gtt while transitioning to coumadin. Consult Hemology. Pt active with [facility]- will continue services at discharge. Await treatment plan and clinical progress. professional development manager will continue to follow for transitional care needs for discharge planning. Discharge Milestones and Delays Expected date/time: 04/10/2024 Expected discharge disposition: Home or Self Care Discharge Milestones Place discharge order Complete med reconciliation Case mgmt discharge readiness Clinical Stability Diagnostic Workup Server Cashier Recommendations Facility Choice Selection Imaging Results Patient [...] vasc consult" 04/06/2024 Bernie Cutler APRN - WELL SURVEYING ENGINEER 04/04/2024 4:04 AM 04/06/2024 Bernie Cutler APRN - WELL SURVEYING ENGINEER 04/03/2024 11:17 PM Length of Stay (Days): 6 GMLOS: 3.1 [facility] 04-09-2024 Note Formatting of this n ote is different from the original. Images from the original note were not included. Care Management Progress Note Remains on heparin gtt while transitioning to coumadin. Consult Hemology. Pt active with [facility]- will continue services at discharge. Await treatment plan and clinical progress. professional development manager will continue to follow for transitional care needs for discharge planning. Discharge Milestones and Delays Expected date/time: 04/10/2024 Expected discharge disposition: Home or Self Care Discharge Milestones Place discharge order Complete med reconciliation Case mgmt discharge readiness Clinical Stability Diagnostic Workup Server Cashier Recommendations Facility Choice Selection Imaging Results Patient [...] 4:04 AM 04/06/2024 Bernie Cutler APRN - WELL SURVEYING ENGINEER 04/03/2024 11:17 PM Length of Stay (Days): 6 GMLOS: 3.1 [facility] 04-08-2024 Plan of care note Progressing [facility] 04-07-2024 Plan of care note The [...] or baseline comfort level Outcome: Progressing . [facility] 04-07-2024 Hospital Discharge instructions Lolita Sarah [...] Rahman RPh - 04/13/2024 1:[address] [facility] Clinic will monitor your warfarin after you go home. [facility] Phone number: [phone]. Home care nurse will check your INR Monday 04/[address] [facility] will contact you with warfarin dosing instructions. Eliseo Clark RN - 04/04/2024 11:36 AM EDT Images from the original note were not included. Continuity of Care Form Patient Name: Mel Pop : 1940 Admit date: 04/03/2024 Discharge date: Code Status Order: DNR-CCA Advance Directives: N Admitting Physician: Andriy Avelar DO PCP: Jared Evans MD Discharging Nurse: Discharging Hospital Unit/Room#: N4-461/N4-461 B Discharging Unit Phone Number: Emergency Contact: Extended Emergency Contact Information Primary Emergency Contact: Anum Villafana Mobile Relation: Friend Secondary Emergency Contact: BradfordJosé Miguel/ Fidel Mobile Relation: Child Past Surgical History: [...] detachment Hyperglycemia Osteopenia of left femoral neck medical terminologist current use of anticoagulant therapy Seasonal allergies [...] 8 oz) Mental Status: {HECTOR Patient Mental Status:32103} IV Access: {HECTOR IV Access:16069} Nursing Mobility/ADLs: Walking {MAHESH ADL:87074::"Independent"} Transfer {MAHESH ADL:02833::"Independent"} Bathing {MAHESH ADL:90035::"Independent"} Dressing {MAHESH ADL:36874::"Independent"} Toileting {MAEHSH ADL:57096::"Independent"} Feeding {MAHESH ADL:49638::"Independent"} Bit Welder {MAHESH ADL:43082::"Independent"} Med Delivery {yes/no:71785} Wound Care Documentation and Therapy: Elimination: Continence: Bowel: {yes/no:72547} Bladder: {yes/no:15295} Urinary Catheter: {HECTOR Urinary Catheter:68404} Colostomy/Ileostomy/Ileal Conduit: {YES / NO:} Date of Last BM: Intake/Output Summary (Last 24 hours) at 04/04/2024 1135 Last data filed at 04/03/20242056 Gross per 24 hour Intake 500 ml Output -- Net 500 ml I/O last 3 completed shifts: In: 500 (6.9 mL/kg) [IV Piggyback:500] Out: - (0 mL/kg) Weight: 72.3 kg Safety Concerns: {HECTOR Safety Concerns:93186} Impairments/Disabilities: {HECTOR Impairments/Disabilities:11792} Nutrition Therapy: Current Nutrition Therapy: {HECTOR Diet List:35557} Routes of Feeding: {routes of feedin} Liquids: {liquid consistency:78650} Daily Fluid Restriction: {daily fluid restriction:77953} Last Modified Barium Swallow with Video (Video Swallowing Test): {done not done:28809} Treatments at the Time of Hospital Discharge: Respiratory Treatments: Oxygen Therapy: {Therapy; copd oxygen:03810} Ventilator: {HECTOR Ventilator:83757} Rehab Therapies: {GEN THERAPY DISCIPLINE SCAL:9298518} Weight Bearing Status/Restrictions: {POD WEIGHT BEARIN} Other Medical Equipment (for information only, NOT a DME order): {Assistive Devices DME:40220} Other Treatments: Patient's personal belongings (please select all that are sent with patient): {HECTOR Patient Belongings:56170} RN SIGNATURE: {E-signature:95073} CASE MANAGEMENT/SOCIAL WORK SECTION Inpatient Status Date: Discharging to Facility/ Agency Name: [facility] Address: [address] [place] [address] Dialysis Facility (if applicable) Name: Address: Dialysis Schedule: Phone: Fax: Supervisor Water Treatment Plant/Carbonizer signature: {E-signature:48554} PHYSICIAN SECTION Name: Mel Pop Prognosis: {Rehab Prognosis:92854} Condition at Discharge: {Patient Condition:77194} Rehab Potential (if transferring to Rehab): {Rehab Prognosis:48041} Recommended Labs or Other Treatments After Discharge: The individual is being admitted to a nursing facility directly from an [facility] or a unit of a [facility] that is not operated by or licensed by [facility] under section 5119.14 or 5160-3-15.1 5 The individual requires the level of services provided by a nursing facility for the condition for which he or she was treated in the hospital and, Physician Certification: I certify the above information and transfer of Mel Pop is necessary for the continuing treatment of the diagnosis listed and that she requires {HECTOR Level of Care:55649} for {greater less than:27569} 30 days. Update Admission H&P: {HECTOR Changes in H&P:23367} PHYSICIAN SIGNATURE: {E-signature:15943} documented in this encounter [facility] 04-07-2024 Nurse Note NO changes to heparin infusion at this time. [facility] 04-06-2024 Note Formatting of this n ote is different from the original. Images from the original note were not included. Care Management Progress Note Pt s/p thrombectomy this am with vascular. Remains on heparin gtt while transitioning to coumadin. Pt active with [facility]- will continue services at discharge. Discharge [...] Length of Stay (Days): 3 GMLOS: 3.1 [facility] 04-06-2024 Note Formatting of this n ote is different from the original. Images from the original note were not included. Care Management Progress Note Pt s/p thrombectomy this am with vascular. Remains on heparin gtt while transitioning to coumadin. Pt active with [facility]- will continue services at discharge. Discharge [...] vasc consult" 04/06/2024 Bernie Cutler APRN - WELL SURVEYING ENGINEER 04/04/2024 4:04 AM 04/06/2024 Bernie Cutler APRN - WELL SURVEYING ENGINEER 04/03/2024 11:17 PM Length of Stay (Days): 3 GMLOS: 3.1 [facility] 04-06-2024 Note Formatting of this n ote might be different from the original. Patient report called to 4N RN and denies any further questions. Patient resting comfortably and no signs of distress. Per resident patient to lay flat for 2 hours and restart heparin GTT at 1215. Transport notified. [facility] 04-06-2024 Note Formatting of this n ote might be different from the original. Patient report called to 4N RN and denies any further questions. Patient resting comfortably and no signs of distress. Per resident patient to lay flat for 2 hours and restart heparin GTT at 1215. Transport notified. [facility] 04-06-2024 Note Formatting of this n ote might be different from the original. SW assisted patient with completion of Health Care Power of Head Insulation Board Saw Operator. One copy placed in patient chart, one copy sent to medical records and two copies given to patient. Requested by patient, while at bedside this SW spoke to patient's son via patients phone to explain that HCPOA was being completed by patient. Patients son José Miguel Bradford ([phone]) agreed to be this patients agent on the HCPOA and confirmed understanding. [facility] 04-06-2024 Note Formatting of this n ote might be different from the original. SW assisted patient with completion of Health Care Power of Head Insulation Board Saw Operator. One copy placed in patient chart, one copy sent to medical records and two copies given to patient. Requested by patient, while at bedside this SW spoke to patient's son via patients phone to explain that HCPOA was being completed by patient. Patients danny Bradford ([phone]) agreed to be this patients agent on the HCPOA and confirmed understanding. [facility] 04-06-2024 Note Formatting of this n ote [...] technique was used to place a 5 Tuvaluan sheath. A Shelfarison wire was able to be advanced in the inferior vena cava without difficulty. The 5 Tuvaluan sheath was then upsized to a 16 Tuvaluan sheath and the penumbra flash suction thrombectomy device was prepared per intermediate accountant's instructions. The patient was also given 5000 units of heparin for systemic anticoagulation at this time. The Penumbra device was then inserted through the 16 Tuvaluan sheath and a suction thrombectomy was performed [...] device was removed as was the 16 Tuvaluan sheath and an 0 silk suture was [...] the case. Kristyn Blankenship MD Vascular Surgery [facility] 04-06-2024 Note Formatting of this n ote is different from the original. Date: 04/06/2024 Location: [facility] OR Name: Mel Pop, : 1940, Diagnosis Pre-op Diagnosis * Right leg DVT (HCC) [I82.401] Post-op Diagnosis * Right leg DVT (HCC) [I82.401] Procedures RIGHT LOWER EXTREMITY VENOUS MECHANICAL THROMBECTOMY 44984 - [place] PRQ TRANSLUMINAL MECHANICAL THROMBECTOMY VEIN Surgeons * Kristyn Blankenship - Primary Procedure Summary Anesthesia: General ASA: III Estimated Blood Loss: 300 mL Drains: * None in log * Staff: District Branch Manager: Negrita Rey RN; Amira Burton RN Scrub [...] antibiotics are not indicated for this procedure. [facility] 04-06-2024 Note Formatting of this n ote [...] technique was used to place a 5 Tuvaluan sheath. A Bentson wire was able to be advanced in the inferior vena cava without difficulty. The 5 Tuvaluan sheath was then upsized to a 16 Tuvaluan sheath and the penumbra flash suction thrombectomy device was prepared per intermediate accountant's instructions. The patient was also given 5000 units of heparin for systemic anticoagulation at this time. The Penumbra device was then inserted through the 16 Tuvaluan sheath and a suction thrombectomy was performed [...] device was removed as was the 16 Tuvaluan sheath and an 0 silk suture was [...] the case. Kristyn Blankenship MD Vascular Surgery [facility] 04-06-2024 Note Formatting of this n ote is different from the original. Date: 04/06/2024 Location: [facility] OR Name: Mel Pop, : 1940, Diagnosis Pre-op Diagnosis * Right leg DVT (HCC) [I82.401] Post-op Diagnosis * Right leg DVT (HCC) [I82.401] Procedures RIGHT LOWER EXTREMITY VENOUS MECHANICAL THROMBECTOMY 70563 - [place] PRQ TRANSLUMINAL MECHANICAL THROMBECTOMY VEIN Surgeons * Kristyn Blankenship - Primary Procedure Summary Anesthesia: General ASA: III Estimated Blood Loss: 300 mL Drains: * None in log * Staff: District Branch Manager: Negrita Rey RN; Amira Burton RN Scrub [...] antibiotics are not indicated for this procedure. [facility] 04-06-2024 Note Formatting of this n ote might be different from the original. Dr Blankenship at bedside. She called family to update them on procedure time change [facility] 04-06-2024 Note Formatting of this n ote might be different from the original. Dr Blankenship at bedside. She called family to update them on procedure time change [facility] 04-06-[address] Blankenship at bedside. She called family to update them on procedure time change [facility] 04-05-2024 Note Formatting of this n ote is different from the original. Images from the original note were not included. Care Management Progress Note Vascular following with noted plan for possible thrombectomy tomorrow. Remains on heparin gtt while transitioning to coumadin per oncology recommendation. Pt from home alone- indep and active with [facility]- will return. Discharge Milestones and Delays [...] Length of Stay (Days): 2 GMLOS: 3.1 [facility] 04-05-2024 Note Formatting of this n ote is different from the original. Images from the original note were not included. Care Management Progress Note Vascular following with noted plan for possible thrombectomy tomorrow. Remains on heparin gtt while transitioning to coumadin per oncology recommendation. Pt from home alone- indep and active with [facility]- will return. Discharge Milestones and Delays [...] vasc consult" 04/06/2024 Bernie Cutler APRN - WELL SURVEYING ENGINEER 04/04/2024 4:04 AM 04/06/2024 Bernie Cutler APRN - WELL SURVEYING ENGINEER 04/03/2024 11:17 PM Length of Stay (Days): 2 GMLOS: 3.1 [facility] 04-05-2024 Plan of care note The patient is Moderately Stable - Low risk of patient condition declining or worsening The patient's goals for the shift include met The clinical goals for the shift include met [facility] 04-04-2024 Consult note Formatting of th is note is different from the original. Images from the original note were not included. [facility] Hematology Oncology Inpatient Consultation [facility] Mel Pop : 1940(83 y.o.) Date: [...] afib, hypertension, and GERD who presented to [facility] for right lower extremity pain. Reports after [...] trifurcation vessels. Vascular surgery recommended transfer to [facility]. PVR and BLE US results [...] called her listed contacts (her friend and [id number] however they do not manage her pill [...] eliquis. I have left a voicemail with [facility] pharmacy in [place] to see if the Eliquis is being [...] min Stress: No Stress Concern Present (04/04/2024) [place] [employer] - Occupational Stress Questionnaire Feeling of Stress : Not at all Social Connections: Moderately Isolated (04/04/2024) Social Connection and Isolation Panel [NHANES] Frequency of Communication with Friends and Family: More than three times a week Frequency of Social Gatherings with Friends and Family: More than three times a week Attends Alevism Services: 1 to 4 times per year [...] : 1940 [id number] Exam Date/Time: 04/03/2024 21:06 Procedure: CT HEAD [...] completing clinical documentation as well as with [id number] patient care, performing a medically appropriate examination, [...] well as answering questions. Andre Patel MD [employer] Work Phone: 04-04-2024 Consult note Formatting of th is note is different from the original. Images from the original note were not included. [facility] Hematology Oncology Inpatient Consultation [facility] Mel Pop : 1940(83 y.o.) Date: [...] afib, hypertension, and GERD who presented to [facility] for right lower extremity pain. Reports after [...] trifurcation vessels. Vascular surgery recommended transfer to [facility]. PVR and BLE US results [...] called her listed contacts (her friend and [id number] however they do not manage her pill [...] left a voicemail with [facility] pharmacy in [place] to see if the Eliquis is being [...] min Stress: No Stress Concern Present (04/04/2024) [place] [employer] - Occupational Stress Questionnaire Feeling of Stress : Not at all Social Connections: Moderately Isolated (04/04/2024) Social Connection and Isolation Panel [NHANES] Frequency of Communication with Friends and Family: More than three times a week Frequency of Social Gatherings with Friends and Family: More than three times a week Attends Alevism Services: 1 to 4 times per year [...] : 1940 [id number] Exam Date/Time: 04/03/2024 21:14 Procedure: CTA AORTA [...] 04/03/2024 Patient Name: MEL POP : 1940 [facility]#: [id number] Exam Date/Time: 04/03/2024 21:06 Procedure: CT HEAD [...] completing clinical documentation as well as with [id number] patient care, performing a medically appropriate examination, [...] Lolita Sarah MD PGY5, General Surgery Pager #[phone] Past Medical History: Diagnosis Date Asthma Essential [...] min Stress: No Stress Concern Present (04/04/2024) [place] [employer] - Occupational Stress Questionnaire Feeling of Stress : Not at all Social Connections: Moderately Isolated (04/04/2024) Social Connection and Isolation Panel [NHANES] Frequency of Communication with Friends and Family: More than three times a week Frequency of Social Gatherings with Friends and Family: More than three times a week Attends Alevism Services: 1 to 4 times per year [...] TESTING: Patient Name: MEL POP : 1940 [facility]#: [id number] Exam Date/Time: 04/03/2024 21:14 Procedure: CTA AORTA [...] evidence of phlegmasia. Heparin gtt initiated at [facility] prior to transfer and continued here. She notes missed doses of her Eliquis. Recommend compression and elevation of the right lower extremity. Can consider mechanical thrombectomy however given patient's age, this may be more risk than of benefit. Will continue to monitor for symptom improvement on anticoagulation alone. documented in this encounter [facility] 04-04-2024 Note Formatting of this n ote might be different from the original. Care Managment Initial Assessment Date: 04/04/2024 Patient Name: Mel Pop : 1940 Patient Information Source of Information: Patient Cognition/Language: WFL - Within Functional Limits Permission given to speak with patient field representative/caregiver as indicated: Confirmation of Payer with patient/family: Yes Payer Name: re[place]: No Confirmation of Primary Care Physician: Confirmed [...] Home Health Services Care Services Provider Name: krissy WIGGINS Dialysis Type: POLO Durable Medical Equipment: [...] home alone and indep. Pt active with [facility]- liaison following for continued services. Pt uses walker/cane at baseline. Pt has insurance, PCP and able to obtain meds. Pt's friends help with transportation. No needs antic at discharge. Virginia Rehman RN [facility] 04-04-2024 Note Formatting of this n ote might be different from the original. Care Managment Initial Assessment Date: 04/04/2024 Patient Name: Mel Pop : 1940 Patient Information Source of Information: Patient Cognition/Language: WFL - Within Functional Limits Permission given to speak with patient field representative/caregiver as indicated: Confirmation of Payer with patient/family: Yes Payer Name: rey [place]: No Confirmation of Primary Care Physician: Confirmed [...] Living Prescription Coverage: Yes [facility]acy Used[facility] Medication Management: Independent Transportation/Shopping: Assistance Provider Transportation/Shopping Assistance Provider Name: natividad Transportation Mode: Car Needs Assistance with Transportation at Discharge: No Meal Preparation: Independent Laundry/Cleaning: Independent Finances/Bill Paying: Independent Communication: Independent Types of Care Services/Equipment Utilized Care Services: Skilled Home Health Services Care Services Provider Name: [facility] Dialysis Type: NA Durable Medical Equipment: [...] home alone and indep. Pt active with [facility]- liaison following for continued services. Pt uses walker/cane at baseline. Pt has insurance, PCP and able to obtain meds. Pt's friends help with transportation. No needs antic at discharge. Virginia Rehman RN [facility] 04-04-2024 Note Formatting of this n ote is different from the original. Start PACC Note Home Health Referral Educated patient on Home Care and services available. Patient offered choice of available HHC and agreeable to SN/PT services with [facility] - Home Care. Care Types: [...] is noted as yes - consider a BELT FIXER evaluation once the patient returns home. START PATIENT REGISTRATION INFORMATION Order Information Order Signing Physician: Robert Mullins MD Service Ordered RN ?: Yes Service Ordered PT ?: Yes Service Ordered OT ?: No Service Ordered ST ?: No Service Ordered BELT FIXER?:No Service Ordered WHEELCHAIR VAN OPERATOR FIRST RESPONDER?: No Following Physician: Jared Evans MD Following Physician Overseeing Physician: Jared Evans MD (Required for Residents only) Agreeable to Follow? Yes Date/Time of Call 04/04/24 11:36 AM, Spoke with: Patient is a DEB. Care Coordination Same Day SOC?: No Primary Care Physician: Jared Evans MD Primary Care Physician Primary Care Physician Address: [address] [place] [id number] Visit Instructions: N/A Service Discharge Location Type: Home with Home Care Service Facility Name: N/A Service Floor Facility: N/A Service Room No: N/A Demographics Patient Last Name: Jose Alberto Patient First Name: Mel Language/Communication Barrier: none Service Address: [address] [place] [address] Service City: [place] Service ST: [place] Service ZIP: [address] Service Other phone numbers: Telephone Information: Emergency Contact: Extended Emergency Contact Information Primary Emergency Contact: Anum Villafana Mobile Relation: Friend Secondary Emergency Contact: [...] Caregiver Phone Number: na Caregiver Notes: N/A [employer] List No END PATIENT REGISTRATION INFORMATION Pt [...] intervention. Discharge Date: pending Referral Source-PACC: (Hospital/Unit): [facility] / N4-461/N4-461 B End PACC Note [facility] 04-04-2024 Note Formatting of this n ote is different from the original. Start PACC Note Home Health Referral Educated patient on Home Care and services available. Patient offered choice of available HHC and agreeable to SN/PT services with [facility] - Home Care. Care Types: [...] is noted as yes - consider a BELT FIXER evaluation once the patient returns home. START PATIENT REGISTRATION INFORMATION Order Information Order Signing Physician: Robert Mullins MD Service Ordered RN ?: Yes Service Ordered PT ?: Yes Service Ordered OT ?: No Service Ordered ST ?: No Service Ordered BELT FIXER?:No Service Ordered WHEELCHAIR VAN OPERATOR FIRST RESPONDER?: No Following Physician: Jared Evans MD Following Physician Overseeing Physician: Jared Evans MD (Required for Residents only) Agreeable to Follow? Yes Date/Time of Call 04/04/24 11:36 AM, Spoke with: Patient is a DEB. Care Coordination Same Day SOC?: No Primary Care Physician: Jared Evans MD Primary Care Physician Primary Care Physician Address: [address] [place] [address] / [facility] [address] Visit Instructions: N/A Service Discharge Location Type: Home with Home Care Service Facility Name: N/A Service Floor Facility: N/A Service Room No: N/A Demographics Patient Last Name: Jose Alberto Patient First Name: Mel Language/Communication Barrier: none Service Address: [facility] [address] Service City: [place] Service ST: [place] Service ZIP: [address] Service Other phone numbers: Telephone Information: Emergency Contact: Extended Emergency Contact Information Primary Emergency Contact: Anum Villafana Mobile Relation: Friend Secondary Emergency Contact: José Miguel Bradford/ Fidel Mobile Relation: Child Admission Information Admit Date: 04/03/2024 Patient status at discharge: Inpatient Admitting Diagnosis: Right leg pain [M79.604] Peripheral arterial disease (HCC) [I73.9] Right leg weakness [R29.898] Atrial fibrillation, unspecified type (HCC) [I48.91] Caregiver Information Caregiver First Name: na Caregiver Last Name: na Caregiver Relationship to Patient na Caregiver Phone Number: na Caregiver Notes: N/A [employer] List No END PATIENT REGISTRATION INFORMATION Pt [...] intervention. Discharge Date: pending Referral Source-PACC: (Hospital/Unit): [facility] / N4-461/N4-461 B End PACC Note [facility] 04-04-2024 Plan of care note The patient is Moderately Stable - Low risk of patient condition declining or worsening The patient's goals for the shift include safety The clinical goals for the shift include therapeutic aptt [facility] 04-04-2024 Note Formatting of this n ote might be different from the original. Patient is currently active with [facility]. The patients current certification period will on 05/18/24. The patient is currently receiving PT services through the agency. Plant Anatomy Teacher to continue to follow. [facility] 04-04-2024 Note Formatting of this n ote might be different from the original. Patient is currently active with [facility]. The patients current certification period will on 05/18/24. The patient is currently receiving PT services through the agency. Plant Anatomy Teacher to continue to follow. [facility] 04-04-2024 Consult note Associated Order (s): IP [...] Lolita Sarah MD PGY5, General Surgery Pager #[phone] Past Medical History: Diagnosis Date Asthma Essential [...] min Stress: No Stress Concern Present (04/04/2024) [place] [employer] - Occupational Stress Questionnaire Feeling of Stress : Not at all Social Connections: Moderately Isolated (04/04/2024) Social Connection and Isolation Panel [NHANES] Frequency of Communication with Friends and Family: More than three times a week Frequency of Social Gatherings with Friends and Family: More than three times a week Attends Alevism Services: 1 to 4 times per year [...] TESTING: Patient Name: MEL POP : 1940 [facility]#: [id number] Exam Date/Time: 04/03/2024 21:14 Procedure: CTA AORTA [...] evidence of phlegmasia. Heparin gtt initiated at [facility] prior to transfer and continued here. She notes missed doses of her Eliquis. Recommend compression and elevation of the right lower extremity. Can consider mechanical thrombectomy however given patient's age, this may be more risk than of benefit. Will continue to monitor for symptom improvement on anticoagulation alone. [facility] Work Phone: 04-04-2024 Note Formatting of this [...] - DO NOT do CPR, intubation] [_] [DNR-PASSENGER SCREENER - Comfort care only] [_] DNR form [...] of life care, with patient and/or family/surrogate. Andriy Avelar DO Acute care [facility] 04/04/2024, 5:40 AM [employer] 04-04-2024 Note Formatting of this n ote [...] - DO NOT do CPR, intubation] [_] [DNR-PASSENGER SCREENER - Comfort care only] [_] DNR form [...] of life care, with patient and/or family/surrogate. Andriy Avelar DO [facility] 04/04/2024, 5:40 AM [facility] 04-04-2024 History and physical note Attending History [...] min Stress: No Stress Concern Present (04/04/2024) [place] [employer] - Occupational Stress Questionnaire Feeling of Stress : Not at all Social Connections: Moderately Isolated (04/04/2024) Social Connection and Isolation Panel [NHANES] Frequency of Communication with Friends and Family: More than three times a week Frequency of Social Gatherings with Friends and Family: More than three times a week Attends Alevism Services: 1 to 4 times per year [...] Extended Emergency Contact Information Primary Emergency Contact: Anum Villafana Mobile Relation: Friend Secondary Emergency Contact: José Miguel Bradford/ Fidel Mobile Relation: Child Andriy Avelar DO Division of Hospitalist Medicine Inpatient Medical Services/[facility] [employer] Work Phone: 04-04-2024 Note [employer] [facility] 04-04-2024 History and physical note [...] min Stress: No Stress Concern Present (04/04/2024) [place] [employer] - Occupational Stress Questionnaire Feeling of Stress : Not at all Social Connections: Moderately Isolated (04/04/2024) Social Connection and Isolation Panel [NHANES] Frequency of Communication with Friends and Family: More than three times a week Frequency of Social Gatherings with Friends and Family: More than three times a week Attends Alevism Services: 1 to 4 times per year [...] Extended Emergency Contact Information Primary Emergency Contact: Anum Villafana Mobile Relation: Friend Secondary Emergency Contact: José Miguel Bradford/ Fidel Mobile Relation: Child Andriy Avelar DO [facility] Inpatient Medical Services/[facility] documented in this encounter [facility] 04-04-2024 Plan of care note The patient is Moderately Stable - Low risk of patient condition declining or worsening The patient's goals for the shift include met The clinical goals for the shift include met Over the shift, the patient did not make progress toward the following goals. Barriers to progression include . Recommendations to address these barriers include . [facility] 04-04-2024 Emergency department Note Report to Delia Bond RN 04/04/24341 [facility] 04-04-2024 Emergency department Note Report to Delia Bond RN 04/04/24 034 Multiple attempts made to call report to [facility] with phone number provided by pitting 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 Will try again. Shannon Bond RN 04/04/24 033 [facility] at bedside to transport pt to [facility]. Paperwork with EMS Shannon Bond RN 04/04/24 2872 EMERGENCY DEPARTMENT ENCOUNTER Pt Name: Mel Pop [...] Resource Strain: Low Risk (05/18/2022) Received from [facility] Overall Financial Resource Strain (CARDIA) Difficulty of Paying Living Expenses: Not hard at all Food Insecurity: No Food Insecurity (05/18/2022) Received from [facility] Hunger Vital Sign Worried About Running Out of Food in the Last Year: Never true Ran Out of Food in the Last Year: Never true Transportation Needs: No Transportation Needs (05/18/2022) Received from [facility] PRAPARE - Transportation Lack of Transportation (Medical): No Lack of Transportation (Non-Medical): No Housing Stability: Unknown (05/18/2022) Received from 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 Patient admitted to [facility]. Patient in agreement with plan. [...] to contact the dictating provider for clarification.) Uma Cornell DO [employer] Uma Cornell DO 04/06/24 1625 Pt presents via [...] or other complaints. documented in this encounter [facility] 04-04-2024 Emergency department Note Multiple attempts made to call report to [facility] with phone number provided by pitting 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 Will try again. Shannon Bond RN 04/04/24 0331 [facility] 04-04-2024 Emergency department Note [facility] at bedside to transport pt to [facility]. Paperwork with EMS Shannon Bond RN 04/04/24 0314 [facility] 04-03-2024 Emergency department Triage note Pt presents [...] upon arrival. No SOB or other complaints. [facility] 04-03-2024 Physician Emergency department Note EMERGENCY DEPARTMENT [...] Resource Strain: Low Risk (05/18/2022) Received from [facility] Overall Financial Resource Strain (CARDIA) Difficulty of Paying Living Expenses: Not hard at all Food Insecurity: No Food Insecurity (05/18/2022) Received from [facility] Hunger Vital Sign Worried About Running Out of Food in the Last Year: Never true Ran Out of Food in the Last Year: Never true Transportation Needs: No Transportation Needs (05/18/2022) Received from [facility] PRAPARE - Transportation Lack of Transportation (Medical): No Lack of Transportation (Non-Medical): No Housing Stability: Unknown (05/18/2022) Received from [facility] Housing Stability Vital Sign Unable to [...] 82. I also reviewed external records from [facility]. I discussed their care with [facility]. Consideration for escalation of care with: Admission/observation discussed case with Dr. Blankenship, will place her on heparin, she does have reconstitution past the mid femoral occlusion and she has normal range of motion to the lower extremities but she has severe disease to the lower extremities will heparinize or admit her to [facility] in case she needs an emergent [...] Emergency Medicine Provider SEBASTIAN Herrera CNP 04/03/242237 [facility] 04-03-2024 Physician Emergency department Note Emergency Department Encounter [facility] MED[facility] UN[facility] 4N Patient: Mel Pop : 1940 Date of Evaluation: 04/03/2024 ED Supervising Physician: Uma Cornell DO I personally evaluated Mel Pop [...] consulted recommends heparin drip and transferred to [facility], 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 Patient admitted to [facility]. Patient in agreement with plan. [...] to contact the dictating provider for clarification.) Uma Cornell DO [employer] Uma Cornell DO 04/06/24 7905 [facility] [employer] Work Phone: 07-27-2023 History of Present illness Narrative [facility] [address] [place] [address] [place] [id number] Dept: [phone] Dept Mel Solizerd 1940 [id number] 07/27/2023 HISTORY OF PRESENT ILLNESS: Mel is [...] improve. Electronically signed by Ming Weinberg MD [facility] Department of Orthopedic surgery 07/27/2023 5:21 PM Voice recognition was used for portions of this note and although it was reviewed prior to signing some incorrect words or phrases could be present. documented in this encounter [facility] 07-06-2022 Miscellaneous Notes PATIENT INFORMATION Record ID: [id number] Patient Name: Mel [facility]: [facility] [place]: [facility] Attending: Iwona Chu Center: Internal Medicine and Geriatrics INSTRUCTIONS All Clear SN to remind patient of next upcoming appointment date, time, location All Clear All Clear All Clear SURVEY INFORMATION Medical/Nurse Dross Skimmer: Inés Tubbs 1. Your discharge instructions are [...] (Standard Question) No documented in this encounter [facility] 06-29-2022 Note HNO ID: [id number] Author: Joana Tolbert RPh Service: Pharmacy Author Type: Pharmacist Type: Plan of Care Filed: 06/29/2022 3:39 PM Note Text: DISCHARGE MEDICATION REVIEW AND COUNSELING BY PHARMACY Patient Name: Mel Bradford Account #: Data Unavailable Admission Date: 06/16/2022 [...] Post discharge follow up instruction Joana Tolbert [facility] June 29, 2022 3:32 PM Medication List [...] Your Medications These medications were sent to [facility] [address] [place] [address] Hours: Tuesday-Tuesday, 8am-4:30pm apixaban 5 mg (74 tabs) ascorbic acid (vitamin C) 500 mg tablet bacitracin 500 unit/gram ointment guaiFENesin 600 mg 12 hr tablet HYDROcodone-acetaminophen 5-325 mg per tablet lactobacillus rhamnosus 10 billion cell capsule metoprolol tartrate (short acting) [address] 40 mg tablet sucralfate 1 gram tablet [facility] 06-29-2022 Note HNO ID: [id number] Author: aKssidy Mejia RN Service: Care Management Author Type: [...] needs and plan for meeting these needs: [facility] HANDOFF COMMUNICATION: TRANSPORTATION ARRANGEMENTS: Transportation Arrangements: Car ADDITIONAL CONTACT RESOURCES: [facility] was able to approve and deliver home O2. SIGNATURE: Kassidy Mejia RN PATIENT NAME: Mel Bradford DATE: June 29, 2022 TIME: 12:38 PM PAGER/CONTACT #: [phone] [facility] 06-28-2022 Note HNO ID: [id number] Author: Iwona Chu DO Service: Hospital Medicine Author Type: Physician Type: Progress Notes Filed: 06/28/2022 8:58 PM Note Text: Needs O2 arranged before discharge [facility] 06-28-2022 Note HNO ID: [id number] Author: Irene Han RN Service: Care Management [...] service area. Additional DMR referrals sent to [facility] and [facility]; awaiting response. Will need accepting DMR provider and home O2 delivery, prior to discharge. Oxygen/HC orders in [facility]. SIGNATURE: Irene Han RN PATIENT NAME: Mel Bradford DATE: June 28, 2022 TIME: 1:58 PM PAGER/CONTACT #: [phone] [facility] 06-28-2022 Note HNO ID: [id number] Author: Iwona Chu DO Service: Hospital Medicine [...] micropuncture needle and serially upsized to a 5-Tuvaluan sheath. A venogram was then performed, which [...] time, the sheath was upsized to an 8-Tuvaluan sheath. An intravascular ultrasound was performed. This [...] the sheath was then pulled On anticoagulant: chrisquis # PAD CTA abd/pel 06/16/22 Occlusion of [...] of overt GI (more content not included)... [facility] 06-27-2022 Note HNO ID: [id number] Author: Iwona Chu DO Service: Hospital Medicine [...] micropuncture needle and serially upsized to a 5-Tuvaluan sheath. A venogram was then performed, which [...] time, the sheath was upsized to an 8-Tuvaluan sheath. An intravascular ultrasound was performed. This [...] accept for hh (more content not included)... [facility] 06-26-2022 Note HNO ID: [id number] Author: Iwona Chu DO Service: Hospital Medicine [...] micropuncture needle and serially upsized to a 5-Tuvaluan sheath. A venogram was then performed, which [...] time, the sheath was upsized to an 8-Tuvaluan sheath. An intravascular ultrasound was performed. This [...] 06/22/22 rec subacute/SNF (more content not included)... [facility] 06-25-2022 Note HNO ID: [id number] Author: Heron Ayers MD Service: Hospital Medicine [...] 84106/24/22181207/02/22 0859 06/16/221944 vte current anticoag therapy ([place]) 06/16/221944 activity - mobilize patient ([place], [place]) VTE Prophylaxis: VTE prophylaxis appropriate Disposition: Home Plan of care discussed with: Provider, RN, Patient SIGNATURE: Heron Ayers MD PATIENT NAME: Mel Bradford DATE: June 25, 2022 TIME: 12:03 PM etx [id number] [facility] 06-25-2022 Note HNO ID: [id number] Author: Kassidy Mejia RN Service: Care Management [...] SIGNATURE: Kassidy Mejia RN PATIENT NAME: Mel Bradford DATE: June 25, 2022 TIME: 11:30 AM PAGER/CONTACT #: [phone] [facility] 06-24-2022 Note HNO ID: [id number] Author: Richie Yi MD Service: General Internal Medicine Author Type: Physician Type: Progress Notes Filed: 06/24/2022 6:34 PM Note Text: DEPARTMENT OF HOSPITAL MEDICINE PROGRESS NOTE SERVICE DATE: 06/23/2022 SERVICE TIME: 7:19 PM Hospital Medicine/Primary Attending: Richie Yi MD NIGHT AND WEEKEND COVERAGE: BOHEMIA COVERAGE: After 7pm, please call cross cover pager #[phone] Subjective Patient was seen today. She is [...] 0300 06/16/22 194 vte current anticoag therapy ([place], [place]) 06/16/221944 activity - mobilize patient ([place] VTE Prophylaxis: VTE prophylaxis appropriate Disposition: To be determined Plan of care discussed with: Provider, RN, Patient SIGNATURE: Richie Yi MD PATIENT NAME: Mel Bradford DATE: June 23, 2022 TIME: 7:19 PM etx [id number] [facility] 06-24-2022 Note HNO ID: [id number] Author: SHAQUILLE Kaye Service: Care Management Author Type: Carbonizer Type: Care Mgt Progress Note Filed: 06/24/2022 [...] transport. SIGNATURE: SHAQUILLE Kaye PATIENT NAME: Mel Bradford DATE: June 24, 2022 TIME: 1:02 PM PAGER/CONTACT #: [phone] [facility] 06-23-2022 Note HNO ID: [id number] Author: Richie Yi MD Service: General Internal Medicine Author Type: Physician Type: Progress Notes Filed: 06/23/2022 7:28 PM Note Text: DEPARTMENT OF HOSPITAL MEDICINE PROGRESS NOTE SERVICE DATE: 06/23/2022 SERVICE TIME: 7:19 PM Hospital Medicine/Primary Attending: Richie Yi MD NIGHT AND WEEKEND COVERAGE: BOHEMIA COVERAGE: After 7pm, please call cross cover pager #[phone] Subjective Patient was seen today. She is [...] Bolus for Subtherapeutic PTTAC) 0-30 mL/hr See [facility] for full Linked Orders Report. 0-3,000 Units/hr INTRAVENOUS CONTINUOUS Rate Verify, 06/23 1617 06/22/22 1028 -- 06/16/221944 vte current anticoag therapy ([place], [place]) 06/16/221944 activity - mobilize patient ([place]) VTE Prophylaxis: VTE prophylaxis appropriate Disposition: To be determined Plan of care discussed with: Provider, RN, Patient SIGNATURE: Richie Yi MD PATIENT NAME: Mel Bradford DATE: June 23, 2022 TIME: 7:19 PM etx [id number] [facility] 06-23-2022 Note HNO ID: [id number] Author: Kassidy Mejia RN Service: Care Management Author Type: Registered Nurse Type: Care Mgt Progress Note Filed: 06/23/2022 4:00 PM Note Text: CARE MANAGEMENT PROGRESS NOTE SERVICE DATE: 06/23/2022 SERVICE TIME: 3:55 PM LOS: 7 days Spoke with pt at the bedside. Discussed SNF placement. Auth obtained for [facility]- pt would be responsible for copay 50% of cost per day for days 1-100. Pt refusing SNF at this time. Pt would like to d/c home with her son and dtr-in-law to ([address] [place] [address]). Pt would agreeable to [facility]- Referrals sent. Pt may need home O2- await ambulatory pulse ox. Family likely able to transport at d/c. CM to follow. SIGNATURE: Kassidy Mejia RN PATIENT NAME: Mel Bradford DATE: June 23, 2022 TIME: 3:53 PM PAGER/CONTACT #: [phone] [facility] 06-22-2022 Note HNO ID: [id number] Author: Jhon Zaidi MD Service: Hospital Medicine Author Type: Physician Type: Progress Notes Filed: 06/22/2022 6:47 PM Note Text: DEPARTMENT OF HOSPITAL MEDICINE PROGRESS NOTE SERVICE DATE: 06/22/2022 SERVICE TIME: 6:42 PM Hospital Medicine/Primary Attending: Jhon Zaidi MD NIGHT AND WEEKEND COVERAGE: After 7pm please page [phone] CHIEF COMPLAINT: Follow-up for acute left lower [...] bowel sounds normally heard, no mass palpable FERMENTATION MANAGER- cranial nerves 2 to 12 grossly intact, [...] TPROT 5.3* -- (more content not included)... [facility] 06-22-2022 Note HNO ID: [id number] Author: Kassidy Mejia RN Service: Care Management Author Type: Registered Nurse Type: Care Mgt Progress Note Filed: 06/22/2022 10:15 AM Note Text: CARE MANAGEMENT PROGRESS NOTE SERVICE DATE: 06/22/2022 SERVICE TIME: 10:15 AM LOS: 6 days IMM Follow Up Copy Given: Yes Copy given to:: Patient Method: In Person (verbal) [facility] is able to accept pt. Precert tasked. Pt will need cot for transport. CM to follow. SIGNATURE: Kassidy Mejia RN PATIENT NAME: Mel Bradford DATE: June 22, 2022 TIME: 10:14 AM PAGER/CONTACT #: [phone] [facility] 06-21-2022 Note HNO ID: [id number] Author: Jhon Zaidi MD Service: Hospital Medicine Author Type: Physician Type: Progress Notes Filed: 06/21/2022 4:10 PM Note Text: DEPARTMENT OF HOSPITAL MEDICINE PROGRESS NOTE SERVICE DATE: 06/21/2022 SERVICE TIME: 4:04 PM Hospital Medicine/Primary Attending: Jhon Zaidi MD NIGHT AND WEEKEND COVERAGE: After 7pm please page [phone] CHIEF COMPLAINT: Follow-up for acute left lower [...] bowel sounds normally heard, no mass palpable FERMENTATION MANAGER- cranial nerves 2 to 12 grossly intact, [...] by weight. Has (more content not included)... [facility] 06-21-2022 Note HNO ID: [id number] Author: Kassidy Mejia RN Service: Care Management Author Type: Registered Nurse Type: Care Mgt Progress Note Filed: 06/21/2022 3:44 PM Note Text: CARE MANAGEMENT PROGRESS NOTE SERVICE DATE: 06/21/2022 SERVICE TIME: 3:41 PM LOS: 5 days Spoke with pt at the bedside. Pt states that she lives at home alone. PT/OT rec SNF. Pt would like [facility]- referral sent. Await acceptance. Pt will need precert when medically stable. Pt will need cot for transport. Cm to follow. SIGNATURE: Kassidy Mejia RN PATIENT NAME: Mel Bradford DATE: June 21, 2022 TIME: 3:41 PM PAGER/CONTACT #: [phone] [facility] 06-21-2022 Note HNO ID: [id number] Author: Marleen Belcher APRN.WELL SURVEYING ENGINEER Service: Gastroenterology Author Type: Nurse Practitioner Type: [...] evaluation given evidence (more content not included)... [facility] 06-20-2022 Note HNO ID: [id number] Author: Acacia Hardin DO Service: General Surgery Author Type: Resident Type: Plan of Care Filed: 06/20/2022 1:40 PM Note Text: Plan of Care Dr. 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 Spoke with Dr. Wilson, transportation maintenance specialist for Dr. Rodriguez, and she states these [...] kg/m? Acacia Hardin DO 06/20/2022 1:36 PM [facility] 06-20-2022 Note HNO ID: [id number] Author: Jhon Zaidi MD Service: Hospital Medicine Author Type: Physician Type: Progress Notes Filed: 06/20/2022 12:39 PM Note Text: DEPARTMENT OF HOSPITAL MEDICINE PROGRESS NOTE SERVICE DATE: 06/20/2022 SERVICE TIME: 12:35 PM Hospital Medicine/Primary Attending: Jhon Zaidi MD NIGHT AND WEEKEND COVERAGE: After 7pm please page [phone] CHIEF COMPLAINT: Follow-up for acute left lower [...] bowel sounds normally heard, no mass palpable FERMENTATION MANAGER- cranial nerves 2 to 12 grossly intact, [...] previous IVC tahmina (more content not included)... [facility] 06-19-2022 Note HNO ID: [id number] Author: Jhon Zaidi MD Service: Hospital Medicine Author Type: Physician Type: Progress Notes Filed: 06/19/2022 4:33 PM Note Text: DEPARTMENT OF HOSPITAL MEDICINE PROGRESS NOTE SERVICE DATE: 06/19/2022 SERVICE TIME: 4:29 PM Hospital Medicine/Primary Attending: Jhon Zaidi MD NIGHT AND WEEKEND COVERAGE: After 7pm please page [phone] CHIEF COMPLAINT: Follow-up for acute left lower [...] bowel sounds normally heard, no mass palpable FERMENTATION MANAGER- cranial nerves 2 to 12 grossly intact, [...] 0.94 1.17* 0.99* 1.14* CHEM: Recent Labs 06/19/2251206/18/2241506/17/2250906/16/22340 ALB -- -- -- 3.2* TPROT -- -- -- 6.6 CA 8.1* 8.0* 7.9* 9.1 MG 1.9 2.1 2.1 2.4* HEPATIC: Recent Labs 11/30/22 0341 ALKPHOS 111 ALT 20 AST 13 [...] stools and andrew (more content not included)... [facility] 06-18-2022 Note HNO ID: [id number] Author: Emanuel Hull MD Service: General Surgery [...] Surgery PGY-3 June 18, 2022 5:39 PM [facility] 06-18-2022 Note HNO ID: [id number] Author: Jhon Zaidi MD Service: Hospital Medicine Author Type: Physician Type: Progress Notes Filed: 06/18/2022 5:37 PM Note Text: DEPARTMENT OF HOSPITAL MEDICINE PROGRESS NOTE SERVICE DATE: 06/18/2022 SERVICE TIME: 5:35 PM Hospital Medicine/Primary Attending: Jhon Zaidi MD NIGHT AND WEEKEND COVERAGE: After 7pm please page [phone] CHIEF COMPLAINT: Follow-up for acute left lower [...] bowel sounds normally heard, no mass palpable FERMENTATION MANAGER- cranial nerves 2 to 12 grossly intact, [...] + Bolus for (more content not included)... [facility] 06-18-2022 Note HNO ID: [id number] Author: Kassidy Mejia RN Service: Care Management [...] answer. VM left for pts POA friend Anum to help with IA. Per notes await PT/OT evals- no currently order for therapy, MD notified. Cm to follow clinical progress. SIGNATURE: Kassidy Mejia RN PATIENT NAME: Mel Bradford DATE: June 18, 2022 TIME: 3:46 PM PAGER/CONTACT #: [phone] [facility] 06-17-2022 Note HNO ID: [id number] Author: Eliza Parikh RN Service: Nursing Author Type: Registered Nurse Type: Nursing Progress Note Filed: 06/17/2022 7:24 PM Note Text: Pt to 4200 via bed. Pt tolerated well. [facility] 06-17-2022 Note HNO ID: [id number] Author: Eliza Parikh RN Service: Nursing Author Type: Registered Nurse Type: Nursing Progress Note Filed: 06/17/2022 4:35 PM Note Text: Report to [address] FRAGA [facility] 06-17-2022 Note HNO ID: [id number] Author: Efrain Ivey (Chemist Assistant) Service: Pharmacy Author Type: Vat Skimmer Type: Plan of Care Filed: 06/17/2022 2:16 PM Note Text: PHARMACY MEDICATION REVIEW Patient Name: Mel Bradford : 1940 The following medications were updated within the ELECTRIC TRUCK CRANE OPERATOR medication list: Medications ADDED to ELECTRIC TRUCK CRANE OPERATOR medication list amLODIPine (NORVASC) 10 mg tablet OTHER Yes Yes dexAMETHasone (DECADRON) 4 mg tablet OTHER Yes Yes lisinopril (ZESTRIL, PRINIVIL) 5 mg tablet OTHER Yes Yes RX filled via [employer] and verified with pt. herself Medications CHANGED on ELECTRIC TRUCK CRANE OPERATOR medication list na Medications REMOVED from ELECTRIC TRUCK CRANE OPERATOR medication list na Additional comments: I was able to talk with the pt. about her home medications. She states she takes the 3 RX medications recorded below. These 3 medications were added to her ELECTRIC TRUCK CRANE OPERATOR list. She has finished Paxlovid and a physician stopped Augmentin per pt. interview Required follow up for nursing. Medication history completed by Historian. No nursing follow up required. The below information represents the best possible medication history: Yes Medication history completed by: Vat Skimmer: Efrain Ivey ([employer]) Source of history: Patient: Reliability of source: Appears reliable, clearly identified: Medication name, Medication dose, Medication route, and Medication frequency and Pharmacy records: Epic e-script [facility] Medication nonadherence identified: No barriers noted Reconciliation completed: No, pharmacist not yet reviewed Patient interested in Bedside Delivery Services or using [facility] Pharmacy at discharge? No Preferred outpatient pharmacy: [id number] - [place], [place] [id number] [phone] [phone] [id number] Allergies: Percocet [Oxycodone* Itching Prior to Admission [...] once daily. Facility-Administered Medications: None Efrain Ivey ([employer]) phone [phone] 06/17/2022 [facility] 06-17-2022 Note HNO ID: [id number] Author: Ladan Adame RN Service: Care Management [...] SIGNATURE: Ladan Adame RN PATIENT NAME: Mel Bradford DATE: June 17, 2022 TIME: 12:37 PM PAGER/CONTACT #: [phone] [facility] 06-17-2022 Note HNO ID: [id number] Author: Eliza Parikh RN Service: Nursing Author Type: Registered Nurse Type: Nursing Progress Note Filed: 06/17/2022 10:40 AM Note Text: Echo at bedside [facility] 06-16-2022 Note HNO ID: [id number] Author: Cirilo Alaniz APRN.BATTERY ENGINEER Service: Anesthesiology Author Type: Nurse Fundraising Manager Type: Anesthesia Procedure Notes Filed: 06/16/2022 5:04 PM Note Text: ANESTHESIOLOGY PROCEDURE NOTE Airway General Information Procedure Start Time/Medication Administration: 06/16/2022 4:29 PM Patient location during procedure: OR Timeout Performed Pre-procedure: timeout performed Consent Obtained: Yes Patient identity confirmed: arm band and patient Staffing BATTERY ENGINEER: Cirilo Alaniz APRN.BATTERY ENGINEER Indications and Patient Condition Indications for airway management: anesthesia Preoxygenated: yes anesthesia circuit Method: asleep Difficult Mask: No Final Airway Details Final airway type: endotracheal airway Final Endotracheal Airway: ETT Cuffed: yes Successful intubation technique: video laryngoscopy Devices used: [employer] Endotracheal tube insertion site: oral Blade: Kit Blade size: #3 ETT size (mm): 7.0 Measured from: lips Measurement (cm): 21 Placement verified by: chest auscultation and capnometry Cormack-Lehane Classification: grade I - full view of glottis Number of attempts at approach: 1 Airway not difficult SIGNATURE: Cirilo Alaniz APRN.BATTERY ENGINEER PATIENT NAME: Mel Bradford DATE: June 16, 2022 TIME: 5:03 PM CSN: [id number] [facility] 06-16-2022 Note HNO ID: [id number] Author: Jean Pierre Gamboa RPh Service: Pharmacy Author Type: Pharmacist Type: Progress Notes Filed: 06/16/2022 11:35 AM Note Text: Pharmacy Consult Agreement: Renal Dose Adjustment Patient Name: Mel Bradford Service Date: 06/16/2022 Service Time: 11:33 AM [...] for this patient. Signature: Jean Pierre Gamboa tim Pager/Extension: [phone] [facility] 05-17-2022 History of Present illness Narrative HPI Mel oPp is a 81 year old female who [...] be seen in the emergency room at [facility] for probable admission for IV antibiotics and airway concern. Patient understands this and will leave shortly. Josiah Barnes MD Findings will be communicated to the referring physician via mail or electronic medical record. documented in this encounter [facility] 05-14-2022 Instructions Jared Velazquez PA-C - 05/14/2022 [...] Jared Velazquez PA-C documented in this encounter [facility] 05-14-2022 History of Present illness Narrative Images [...] which included preparing to see the patient, [id number] patient care, completing clinical documentation, performing a medically appropriate examination, counseling and educating the patient/family/caregiver, and ordering medications, tests, or procedures. 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 [facility] Diagnosis Acute bacterial sialadenitis- Primary Bashir's, angina [facility] Diagnosis Localized swelling, mass and lump, neck Swelling, mass, or lump in head and neck [facility] Diagnosis Localized swelling, mass and lump, neck Swelling, mass, or lump in head and neck [facility] Diagnosis Localized swelling, mass and lump, neck- Primary Swelling, mass, or lump in head and neck Localized swelling, mass and lump, neck Swelling, mass, or lump in head and neck [facility]* Diagnosis Other specified soft tissue disorders documented [facility]* Diagnosis Localized swelling, mass and lump, neck- Primary Swelling, mass, or lump in head and neck Localized swelling, mass and lump, neck Swelling, mass, or lump in head and neck documented in this [facility]* Diagnosis Abnormal findings on diagnostic imaging of other specified body structures Pain in left leg [facility] 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[facility]* Diagnosis Other specified soft tissue disorders- Primary Other specified soft tissue disorders documented [facility]* Diagnosis Abnormal findings on diagnostic imaging of other specified body structures- Primary Pain in left leg Abnormal findings on diagnostic imaging of other specified body structures Pain in left leg [facility]* Diagnosis Peripheral arterial disease (HCC)- Primary Unspecified peripheral vascular disease Right leg pain Pain in soft tissues of limb Peripheral arterial disease (HCC) Unspecified peripheral vascular disease Right leg weakness Muscle weakness (generalized) Atrial fibrillation, unspecified type (HCC) Ischemic leg Unspecified circulatory system disorder [facility]* Diagnosis Deep vein thrombosis (DVT) of lower extremity, unspecified chronicity, unspecified laterality, unspecified vein (HCC)- Primary documented in this encounter [facility]* Diagnosis Atrial fibrillation, unspecified type (HCC) Acute venous embolism and thrombosis of deep vessels of proximal end of right lower extremity (HCC) documented in this encounter [facility]* Diagnosis Acute deep vein thrombosis (DVT) of iliac vein of right lower extremity (HCC)- Primary PAD (peripheral artery disease) (HCC) Unspecified peripheral vascular disease [facility]* Diagnosis Deep vein thrombosis (DVT) of lower extremity, unspecified chronicity, unspecified laterality, unspecified vein (HCC) Atrial fibrillation, unspecified type (HCC) Acute venous embolism and thrombosis of deep vessels of proximal end of right lower extremity (HCC) [facility]* Diagnosis Atrial fibrillation, unspecified type (HCC) Acute venous embolism and thrombosis of deep vessels of proximal end of right lower extremity (HCC) [facility] Diagnosis Atrial fibrillation, unspecified type (HCC) Acute venous embolism and thrombosis of deep vessels of proximal end of right lower extremity (HCC) documented in this encounter [facility] note* Diagnosis Paroxysmal atrial fibrillation (HCC) Atrial fibrillation documented in this encounter [facility] note* Diagnosis Atrial fibrillation, unspecified type (HCC) [...] or 3b CKD (HCC) 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 (HCC) intermediate current use of anticoagulant therapy Nicotine use disorder Tobacco use disorder Abnormal echocardiogram Nonspecific (abnormal) findings on radiological and other examination of other intrathoracic organs Left atrial mass documented in this encounter [facility] note* Diagnosis Retinal detachment, right- Primary Unspecified retinal detachment Vision loss of right eye Unqualified visual loss, one eye Acute intractable headache, unspecified headache type Visual disturbance, subjective Unspecified subjective visual disturbance Vision loss of right eye Unqualified visual loss, one eye Visual disturbance, subjective Unspecified subjective visual disturbance documented in this encounter [facility] note* Diagnosis 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 Hemorrhagic choroidal detachment Dislocation of intraocular lens, initial encounter documented in this encounter [facility] note* Diagnosis 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 Hemorrhagic choroidal detachment documented in this encounter [facility] note* Diagnosis 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 Hemorrhagic choroidal detachment Dislocation of intraocular lens, initial encounter Hemorrhagic choroidal detachment of right eye Hemorrhagic choroidal detachment documented in this encounter [facility] note* Diagnosis 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 Hemorrhagic choroidal detachment Hemorrhagic choroidal detachment of right eye Hemorrhagic choroidal detachment documented in this encounter [facility] note* Diagnosis Postoperative eye state- Primary Other states following surgery of eye and adnexa Hemorrhagic choroidal detachment of right eye Hemorrhagic choroidal detachment Pseudophakia, right eye Lens replaced by other means Subluxation of right lens Subluxation of lens documented in this encounter [facility] note* Diagnosis Paroxysmal atrial fibrillation (HCC)- Primary Atrial fibrillation Paroxysmal atrial fibrillation (HCC) Atrial fibrillation documented in this encounter [facility] note* Diagnosis Postoperative eye state Other states following surgery of eye and adnexa Hemorrhagic choroidal detachment of right eye Hemorrhagic choroidal detachment Pseudophakia, right eye Lens replaced by other means Subluxation of right lens Subluxation of lens Hemorrhagic choroidal detachment of right eye Hemorrhagic choroidal detachment [facility]* Diagnosis Post-operative state- Primary Other postprocedural status documented in this encounter [facility] note* Diagnosis Postoperative eye state Other states following surgery of eye and adnexa Hemorrhagic choroidal detachment of right eye Hemorrhagic choroidal detachment Pseudophakia, right eye Lens replaced by other means Subluxation of right lens Subluxation of lens documented in this encounter [facility] note* Diagnosis Aspiration pneumonitis (CMS/HCC) (HCC)- Primary Pneumonitis due to inhalation of food or vomitus Aspiration pneumonitis (CMS/HCC) (HCC) Pneumonitis due to inhalation of food or vomitus Vomiting and diarrhea LORENZA (acute kidney injury) (HCC) documented in this encounter [facility] note* Diagnosis Acute deep vein thrombosis (DVT) of iliac vein of right lower extremity (HCC)- Primary PAD (peripheral artery disease) (HCC) Unspecified peripheral vascular disease documented in this encounter [facility] note* Diagnosis Postoperative eye state Other states following surgery of eye and adnexa Hemorrhagic choroidal detachment of right eye Hemorrhagic choroidal detachment Pseudophakia, right eye Lens replaced by other means Subluxation of right lens Subluxation of lens documented in this encounter [facility] note* Diagnosis 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 Hemorrhagic choroidal detachment Right retinal detachment Unspecified retinal detachment Postoperative eye state Other states following surgery of eye and adnexa Pseudophakia, right eye Lens replaced by other means Subluxation of right lens Subluxation of lens documented in this encounter [facility] noteNo assessment information availableWOur Lady of Mer[facility] Work Phone: Evaluation note* Diagnosis PAD (peripheral artery disease) (HCC)- Primary Unspecified peripheral vascular disease Skin ulcer of toe of right foot, limited to breakdown of skin (HCC) documented in this encounter [facility] note* Diagnosis Critical limb ischemia of right lower extremity (HCC)- Primary documented in this encounter [facility] note* Diagnosis Pre-op evaluation- Primary Skin ulcer of right great toe (HCC) Critical limb ischemia of right lower extremity (HCC) [facility] Diagnosis Skin ulcer of toe of right foot, limited to breakdown of skin (HCC)- Primary PAD (peripheral artery disease) (HCC) Unspecified peripheral vascular disease Aftercare following surgery of the circulatory system Aftercare following surgery of the circulatory system, NEC [facility]* Diagnosis Skin ulcer of toe of right foot, limited to breakdown of skin (HCC) PAD (peripheral artery disease) (HCC) Unspecified peripheral vascular disease Aftercare following surgery of the circulatory system Aftercare following surgery of the circulatory system, NEC [facility] Diagnosis Aftercare following surgery of the circulatory system- Primary Aftercare following surgery of the circulatory system, NEC PAD (peripheral artery disease) (HCC) Unspecified peripheral vascular disease [facility]* Diagnosis 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 Hemorrhagic choroidal detachment documented in this encounter [facility] note* Diagnosis Right retinal detachment- Primary Unspecified retinal detachment Hemorrhagic choroidal detachment of right eye Hemorrhagic choroidal detachment Pseudophakia, right eye Lens replaced by other means documented in this encounter [facility] for referral (narrative)No reason for referral information availableWOur Lady of Mercy Hospital Work Phone: Reason for visit Narrative* Imaging (Routine) - Closed Specialty Diagnoses / Procedures Referred By Elvin leyva Referred To Contact Cardiology Diagnoses Paroxysmal atrial fibrillation (HCC) Procedures Transthoracic echocardiogram (TTE) complete with contrast, bubble, strain, and 3D PRN NC ECHO TTHRC R-T 2D W/WOM-MODE COMPL SPEC&COLR D NC TTE W OR WO FOL WCNICKY ROMERO Rachel, MD [address] [place] [phone] Phone: tel: fax: Referral ID Status Reason Start Date Expiration Date Visits Re quested Visits Authorized [id number] Closed 04/20/2024 04/20/2025 1 1 [facility] for visit Narrative* Auth/Cert (Routine) Specialty Diagnoses / Procedures Referred By Elvin leyva Referred To Contact Diagnoses Aspiration pneumonitis (CMS/HCC) (HCC) LORENZA (acute kidney injury) (HCC) Vomiting and diarrhea Procedures . Abbi Long DO [address] [place] [address] Phone: tel: fax: [facility] [address] [place] [address] Phone: tel: Referral ID Status Reason Start Date Expiration Date Visits Re quested Visits Authorized [id number] 1 1 [facility] [employer] Narrative* Auth/Cert (Routine) Specialty [...] CATH RS&I CHG AORTOGRAPHY ABDOMINAL SERIALOGRAPHY RS&I NC INTRODUCTION CATHETER AORTA NC REVSC OPN/PRG FEM/POP W/ANGIOPLASTY UNI NC REVSC OPN/PRQ TIB/PAMELA W/ANGIOPLASTY UNI NC REVSC OPN/PRQ TIB/PAMELA W/STNT/ANGIOP SM VSL NC REVSC OPN/PRQ FEM/POP W/STNT/ANGIOP SM VSL AORTOILIAC ANGIOGRAPHY, RIGHT LOWER EXTREMITY ANGIOGRAPHY WITH RUNOFF, POSSIBLE SUPERFICIAL FEMORAL ARTERY/POPLITEAL/TIBIAL ANGIOPLASTY/STENTING Kristyn Blankenship MD [address] [address] Phone: tel: fax: [facility] MAIN OR [address] [place] [address] Phone: tel: Referral ID Status Reason Start Date Expiration Date Visits Re quested Visits Authorized [id number] 1 1 [employer] for visit Narrative* Imaging (Routine) - Closed [...] Blankenship MD [address] [place] [address] Phone: tel: fax: [facility] [address] [place] [address] Phone: tel: fax: Referral ID Status Reason Start Date Expiration Date Visits Re quested Visits Authorized [id number] Closed 12/05/2024 12/05/2025 1 1 [facility] Discharge Instructions * Attachments The following attachments cannot be sent through Care Everywhere. * Pulp-Space Infection (Yoruba) documented in this encounter* Instructions* Tiffany Zhu [...] Documents on File Type Date Recorded Patient Powder Line Repairer Expl anation Power of Head Insulation Board Saw Operator 04/06/2024 10:04 AM Date Activated Date Inactivated Comments 04/04/2024 5:46 AM 04/13/2024 7:54 PM Question Answer Comments ICU transfer: Yes Intubation: No Healthcare Agents on File Name Relationship Healthcare Agent Relationshi p Communication Maxwelll/ Fidel Bradford Child First Alternat e Health Care Agent Anum Escobar Second Alternate Health Care Agent Healthcare Agents on File Name Relationship Healthcare Agent Relationshi p Communication Bacel/ Fidel Bradford Child First Alternat e Health Care Agent Anum Escobar Second Alternate Health Care Agent Healthcare Agents on File Name Relationship Healthcare Agent Relationshi p Communication Bacel/ Fidel Bradford Child First Alternat e Health Care Agent Anum Escobar Second Alternate Health Care Agent Documents on File Type Date Recorded Patient Powder Line Repairer Expl anation Power of Head Insulation Board Saw Operator 04/16/2024 1:26 PM Power of Head Insulation Board Saw Operator 04/06/2024 10:04 AM Healthcare Agents on File Name Relationship Healthcare Agent Relationshi p Communication Bacel/ Fidle Bradford Child First Alternat e Health Care Agent Anum Villafana Friend Second Alternate Health Care Agent Healthcare Agents on File Name Relationship Healthcare Agent Relationshi p Communication Bacel/ Fidel Bradford Child First Alternat e Health Care Agent Anum [place] Friend Second Alternate Health Care Agent Healthcare Agents on File Name Relationship Healthcare Agent Relationshi p Communication Bacel/ Fidel Bradford Child First Alternat e Health Care Agent Anum [place] Friend Second Alternate Health Care Agent Healthcare Agents on File Name Relationship Healthcare Agent Relationshi p Communication Bacel/ Fidel Bradford Child First Alternat e Health Care Agent Anum [place] Friend Second Alternate Health Care Agent Healthcare Agents on File Name Relationship Healthcare Agent Relationshi p Communication Bacel/ Fidel Bradford Child First Alternat e Health Care Agent Anum [place] Friend Second Alternate Health Care Agent Documents on File Type Date Recorded Patient Powder Line Repairer Expl anation Power of Head Insulation Board Saw Operator 04/16/2024 1:26 PM Power of Head Insulation Board Saw Operator 04/06/2024 10:04 AM Date Activated Date Inactivated Comments 04/04/2024 5:46 AM 04/13/2024 7:54 PM Question Answer Comments ICU transfer: Yes Intubation: No Healthcare Agents on File Name Relationship Healthcare Agent Relationshi p Communication Bacel/ Fidel Bradford Child First Alternat e Health Care Agent Anum [place] Friend Second Alternate Health Care Agent Healthcare Agents on File Name Relationship Healthcare Agent Relationshi p Communication Bacel/ Fideloskar Bradford Child First Alternat e Health Care Agent Anum [place] Friend Second Alternate Health Care Agent Documents on File Type Date Recorded Patient Powder Line Repairer Expl anation Advance Directive(s) 06/27/2024 12:58 PM [...] Documents on File Type Date Recorded Patient Powder Line Repairer Expl anation Advance Directive(s) 06/27/2024 12:58 PM [...] File Name Relationship Healthcare Agent Relationship Communication Anum DO NOT CALL-TERMINALLY ILL [place] Friend First Alternate Health Care Agent Nadira Bradford Mother First Alternat e Health Care Agent [...] File Name Relationship Healthcare Agent Relationship Communication Anum DO NOT CALL-TERMINALLY ILL [place] Friend First Alternate Health Care Agent Nadira Bradford Mother First Alternat e Health Care Agent Date Activated Date Inactivated Comments 07/07/2024 12:21 PM 07/18/2024 5:56 PM Documents on File Type Date Recorded Patient Powder Line Repairer Expl anation DNR (Do Not Resuscitate) 07/13/2024 10:35 AM Power of Head Insulation Board Saw Operator 04/16/2024 1:26 PM Power of Head Insulation Board Saw Operator 04/06/2024 10:04 AM Date Activated Date Inactivated [...] File Name Relationship Healthcare Agent Relationship Communication Anum DO NOT CALL-TERMINALLY ILL [place] Friend First Alternate Health Care Agent Nadira Bradford Mother First Alternat e Health Care Agent Documents on File Type Date Recorded Patient Powder Line Repairer Expl anation DNR (Do Not Resuscitate) 07/13/2024 10:35 AM Power of Head Insulation Board Saw Operator 04/16/2024 1:26 PM Power of Head Insulation Board Saw Operator 04/06/2024 10:04 AM Date Activated Date Inactivated [...] File Name Relationship Healthcare Agent Relationship Communication Anum DO NOT CALL-TERMINALLY ILL [place] Friend First Alternate Health Care Agent Nadira Bradford Mother First Alternat e Health Care Agent Healthcare Agents on File Name Relationship Healthcare Agent Relationship Communication Anum DO NOT CALL-TERMINALLY ILL [place] Friend First Alternate Health Care Agent Nadira Bradford Mother First Alternat e Health Care Agent Healthcare Agents on File Name Relationship Healthcare Agent Relationship Communication Anum DO NOT CALL-TERMINALLY ILL [place] Friend First Alternate Health Care Agent Nadira Bradford [id number] First Alternat e Health Care Agent Healthcare Agents on File Name Relationship Healthcare Agent Relationship Communication Anum DO NOT CALL-TERMINALLY ILL [place] Friend First Alternate Health Care Agent Nadira Bradford Lmbrwpnj-[id number] First Alternat e Health Care Agent Healthcare Agents on File Name Relationship Healthcare Agent Relationship Communication Anum DO NOT CALL-TERMINALLY ILL [place] Friend First Alternate Health Care Agent Nadira Bradford [id number] First Alternat e Health Care Agent Date Activated Date Inactivated Comments 08/03/2024 10:17 AM 08/16/2024 4:47 PM Healthcare Agents on File Name Relationship Healthcare Agent Relationship Communication Anum DO NOT CALL-TERMINALLY ILL [place] Friend First Alternate Health Care Agent Nadira Bradford [id number] First Alternat e Health Care Agent Healthcare Agents on File Name Relationship Healthcare Agent Relationship Communication Aunm DO NOT CALL-TERMINALLY ILL [place] Friend First Alternate Health Care Agent Nadira Bradford Fhiymhho-yi-fyn First Alternat e Health Care Agent Healthcare Agents on File Name Relationship Healthcare Agent Relationship Communication Anum DO NOT CALL-TERMINALLY ILL [place] Friend First Alternate Health Care Agent Nadira Bradford [id number] First Alternat e Health Care Agent Healthcare Agents on File Name Relationship Healthcare Agent Relationshi p Communication Nadira Bradford Keyxaoms-wy-xwy First Alternat e Health Care Agent Summary [...] gland swelling Procedures CONSULT TO ENT OFFICE/OUTPATIENT [facility] 60-74 MINUTES Jared Velazquez PA-C [address] [place] [address] Referral ID Status Reason Start Date Expiration Date Visits Requested Visits Authorized [id number] Authorized PCP Requested Referral 2 05/14/2023 1 1 Specialty Diagnoses / Procedures Referred By Elvin leyva Referred To Contact Radiology Diagnoses Localized swelling, mass and lump, neck Procedures CT soft tissue neck w IV contrast Jared Evans MD [address] [place] [phone] Referral ID Status Reason Start Date Expiration Date Visits Re quested Visits Authorized [id number] Closed 03/08/2023 04/07/2023 1 1 Specialty Diagnoses / Procedures Referred By Elvin t Referred To Contact Cardiology Diagnoses Other specified soft tissue disorders Procedures Vascular US lower extremity venous duplex left Jared Evans MD [address] [place] [phone] Referral ID Status Reason Start Date Expiration Date V isits Requested Visits Authorized [id number] Pending Review 05/24/2023 05/23/2024 1 1 Specialty Diagnoses / Procedures Referred By Elvin leyva Referred To Contact Radiology Diagnoses Abnormal findings on diagnostic imaging of other specified body structures Pain in left leg Procedures MR tibia fibula left w and wo IV contrast Jared Evans MD [address] [place] [phone] Referral ID Status Reason Start Date Expiration Date Visits Re quested Visits Authorized [id number] Closed 06/01/2023 05/31/2024 1 1 Health Concerns Infection Onset Date Last Indicated Resolved Time COVID-19 Confirmed Comment:First positive per [facility]/OD[facility] system 06/02/2022. 06/16/2022 06/16/2022 06/19/2022 5:[address] Chief Complaint and Reason for Visit Chief Complaint Admit Date LABWORK August 20, 2024 5 :22am LABWORK September 03, 2024 5:00am SKILLED NURSING LAB WORK September 03 8:18am SKILLED NURSING LAB WORK September 10 5:00am Chief Complaint Admit Date LABWORK August 20, 2024 5 :22am LABWORK September 03, 2024 5:00am SKILLED NURSING LAB WORK September 03 8:18am SKILLED NURSING LAB WORK September 10 5:00am SKILLED NURSING LAB WORK September 17, 2024 4: 00am Chief Complaint Admit Date LABWORK August 20, 2024 5 :22am LABWORK September 03, 2024 5:00am SKILLED NURSING LAB WORK September 03 8:18am SKILLED NURSING LAB WORK September 10 5:00am SKILLED NURSING LAB WORK September 17, 2024 4: 00am SKILLED NURSING LAB WORK October 08, 2024 5 :00am Additional Source Comments Reason for Visit (unrecogniz ed section and content) Reason Comments Post-op (Ophthalmology) Right Eye Specialty Diagnoses / Procedures Referred By Elvin leyva Referred To Contact HOSP INPATIENT Diagnoses Retinal detachment Acute retinal detachment Retinal detachment Procedures EVAL AND TREAT OT [facility] [address] [place] [address] Referral ID Status Reason Start Date Expiration Date Visits Re quested Visits Authorized [id number] 1 1 Reason Comments Hemorrhagic choroidal detachment [...] gland swelling Procedures CONSULT TO ENT OFFICE/OUTPATIENT [facility] 60-74 MINUTES Jared Velazquez PA-C [address] [place] [address] Referral ID Status Reason Start Date Expiration Date V isits Requested Visits Authorized [id number] Closed PCP Requested Referral 05/14/2022 05/14/2023 1 1 Reason Comments Follow Up Gyant interaction - F/U - attempt made. No answer. Reason Comments Follow Up Phone Call All Clear Specialty Diagnoses / Procedures Referred By Elvin leyva Referred To Contact Radiology Diagnoses Localized swelling, mass and lump, neck Procedures CT soft tissue neck w IV contrast Jared Evans MD [address] [place] [phone] Referral ID Status Reason Start Date Expiration Date Visits Re quested Visits Authorized [id number] Closed 03/08/2023 04/07/2023 1 1 Specialty Diagnoses / Procedures Referred By Elvin leyva Referred To Contact Cardiology Diagnoses Other specified soft tissue disorders Procedures Vascular US lower extremity venous duplex left Jared Evans MD [address] [place] [phone] Referral ID Status Reason Start Date Expiration Date V isits Requested Visits Authorized [id number] Pending Review 05/24/2023 05/23/2024 1 1 Specialty Diagnoses / Procedures Referred By Contac t Referred To Contact Radiology Diagnoses Abnormal findings on diagnostic imaging of other specified body structures Pain in left leg Procedures MR tibia fibula left w and wo IV contrast Jared Evans MD [address] [place] [phone] Referral ID Status Reason Start Date Expiration Date Visits Re quested Visits Authorized [id number] Closed 06/01/2023 05/31/2024 1 1 Reason Comments New Patient Mass left LE Specialty Diagnoses / Procedures Referred By Contac t Referred To Contact Sports Medicine Diagnoses Pain in leg, unspecified Jared Evans MD [address] [place] [phone] [place] [address] Referral ID Status Reason Start Date Expiration Date Visits Re quested Visits Authorized [id number] Closed 07/06/2023 07/05/2024 1 1 Reason Comments Numbness Leg Swelling Specialty Diagnoses / Procedures Referred By Contac t Referred To Contact Diagnoses Right leg pain Peripheral arterial disease (HCC) Right leg weakness Atrial fibrillation, unspecified type (HCC) Procedures . Andriy Avelar, [address] [place] [address] [phone] Referral ID Status Reason Start Date Expiration Date Visits Re quested Visits Authorized [id number] 1 1 Reason Comments Follow-up 1st follow up RLE me chanical thrombectomy 04/06/24 ([facility]) Reason Onset Date Comments Med Refill 04/27/2024 Specialty Diagnoses / Procedures Referred By Contac t Referred To Contact Diagnoses [I63.9] - Cerebral infarction [facility] Taylor Patiño [address] [place] [address] Referral ID Status Reason Start Date Expiration Date V isits Requested Visits Authorized [id number] New Request 06/20/2024 08/19/2024 Reason Comments Eye Problem Pt reports blurred v ision, dizziness, and headache. LNW 07/04/24 @ 2130. Hx of strokes x 2, HTN, Afib, and right eye retinal detachment. Specialty Diagnoses / Procedures Referred By Elvin leyva Referred To Contact Diagnoses Retinal detachment, right Vision loss of right eye Procedures . Silvio Peres MD [address] [place] [address] Phone: tel: fax: [facility]PT [address] [place] [phone] Phone: tel: Referral ID Status Reason Start Date Expiration Date Visits Re quested Visits Authorized [id number] 1 1 Reason Comments Eye Pain Right [...] OF VITREOUS, CHOROIDAL FLUID, PARS PLANA APPROACH [facility] [address] [address] Referral ID Status Reason Start Date Expiration Date Visits Re quested Visits Authorized [id number] 1 1 Reason Comments 1 week post [...] and diarrhea Procedures . Abbi Long DO [address] [place] [address] Phone: tel: fax: [facility] [address] [place] [address] Phone: tel: Referral ID Status Reason Start Date Expiration Date Visits Re quested Visits Authorized [id number] 1 1 Reason Comments Follow-up 3 month follow up, P AD check ([facility] [place]) Reason Comments Post-op (Ophthalmology) Right Eye 1 marisela h Reason Comments Post op OD Reason Comments Follow-up R leg pain with grea t toe wound-PVR and CTA w runoff 03/2024 Reason Comments Follow-up 1st follow up RLE an juliana, possible SFA/pop/tib angioplasty/stenting 11/22/24 Reason Comments 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; 2nd follow up RLE angio, SFA/pop/tib angioplasty/stenting 11/22/24 ([place] [facility] [phone]) Reason Comments Post-op (Ophthalmology) Right Eye Retinal Detachment OD Eye Crusting OD In the mornings INFORMATION SOURCE (unrecogn ized section and content) DATE CREATED AUTHOR 03/13/2020 [facility] DATE CREATED AUTHOR AUTHOR'S ORGANIZ ATION 06/30/2022 [facility] DATE CREATED AUTHOR AUTHOR'S ORGANIZ ATION 07/10/2024 [facility] DATE CREATED AUTHOR AUTHOR'S ORGANIZ ATION 12/14/2024 [facility] DATE CREATED AUTHOR AUTHOR'S ORGANIZ ATION 01/05/2025 [facility] DATE CREATED AUTHOR AUTHOR'S ORGANIZ ATION 01/09/2025 [facility] DATE CREATED AUTHOR AUTHOR'S ORGANIZ ATION 02/14/2025 [facility] Source Comments (unrecognize d section and content) In the event this informatio n is protected by the Federal Confidentiality of Alcohol and Drug Abuse Patient Records regulations: The Federal rules restrict any use of the information to criminally investigate or prosecute any alcohol or drug abuse patient.[facility] the event this information is protected by the Federal Confidentiality of Alcohol and Drug Abuse Patient Records regulations: The Federal rules restrict any use of the information to criminally investigate or prosecute any alcohol or drug abuse patient.[facility] the event this information is protected by the Federal Confidentiality of Alcohol and Drug Abuse Patient Records regulations: The Federal rules restrict any use of the information to criminally investigate or prosecute any alcohol or drug abuse patient.[facility] the event this information is protected by the Federal Confidentiality of Alcohol and Drug Abuse Patient Records regulations: The Federal rules restrict any use of the information to criminally investigate or prosecute any alcohol or drug abuse patient.[facility] the event this information is protected by the Federal Confidentiality of Alcohol and Drug Abuse Patient Records regulations: The Federal rules restrict any use of the information to criminally investigate or prosecute any alcohol or drug abuse patient.[facility] the event this information is protected by the Federal Confidentiality of Alcohol and Drug Abuse Patient Records regulations: The Federal rules restrict any use of the information to criminally investigate or prosecute any alcohol or drug abuse patient.[facility] the event this information is protected by the Federal Confidentiality of Alcohol and Drug Abuse Patient Records regulations: The Federal rules restrict any use of the information to criminally investigate or prosecute any alcohol or drug abuse patient.[facility] the event this information is protected by the Federal Confidentiality of Alcohol and Drug Abuse Patient Records regulations: The Federal rules restrict any use of the information to criminally investigate or prosecute any alcohol or drug abuse patient.[facility] the event this information is protected by the Federal Confidentiality of Alcohol and Drug Abuse Patient Records regulations: The Federal rules restrict any use of the information to criminally investigate or prosecute any alcohol or drug abuse patient.[facility] the event this information is protected by the Federal Confidentiality of Alcohol and Drug Abuse Patient Records regulations: The Federal rules restrict any use of the information to criminally investigate or prosecute any alcohol or drug abuse patient.[facility] the event this information is protected by the Federal Confidentiality of Alcohol and Drug Abuse Patient Records regulations: The Federal rules restrict any use of the information to criminally investigate or prosecute any alcohol or drug abuse patient.[facility] the event this information is protected by the Federal Confidentiality of Alcohol and Drug Abuse Patient Records regulations: The Federal rules restrict any use of the information to criminally investigate or prosecute any alcohol or drug abuse patient.[facility] the event this information is protected by the Federal Confidentiality of Alcohol and Drug Abuse Patient Records regulations: The Federal rules restrict any use of the information to criminally investigate or prosecute any alcohol or drug abuse patient.[facility] the event this information is protected by the Federal Confidentiality of Alcohol and Drug Abuse Patient Records regulations: The Federal rules restrict any use of the information to criminally investigate or prosecute any alcohol or drug abuse patient.[facility] the event this information is protected by the Federal Confidentiality of Alcohol and Drug Abuse Patient Records regulations: The Federal rules restrict any use of the information to criminally investigate or prosecute any alcohol or drug abuse patient.[facility] the event this information is protected by the Federal Confidentiality of Alcohol and Drug Abuse Patient Records regulations: The Federal rules restrict any use of the information to criminally investigate or prosecute any alcohol or drug abuse patient.[facility]In the event this information is protected by the Federal Confidentiality of Alcohol and Drug Abuse Patient Records regulations: The Federal rules restrict any use of the information to criminally investigate or prosecute any alcohol or drug abuse patient.[facility]In the event this information is protected by the Federal Confidentiality of Alcohol and Drug Abuse Patient Records regulations: The Federal rules restrict any use of the information to criminally investigate or prosecute any alcohol or drug abuse patient.[facility]In the event this information is protected by the Federal Confidentiality of Alcohol and Drug Abuse Patient Records regulations: The Federal rules restrict any use of the information to criminally investigate or prosecute any alcohol or drug abuse patient.[facility] Care Teams (unrecognized sec tion and content) Extermination Supervisor Relationship Specialty Start Date End Date Pcp, No PCP - General 01/30/22 08/17/22 Extermination Supervisor Relationship Specialty Start Date End Date Pcp, No PCP - General 01/30/22 08/17/22 Extermination Supervisor Relationship Specialty Start Date End Date Jared Evans MD [address] [place] [address] PCP - General Family Medicine 05/18/22 Extermination Supervisor Relationship Specialty Start Date End Date Jared Evans MD [address] [place] [address] PCP - General Family Medicine 05/18/22 Extermination Supervisor Relationship Specialty Start Date End Date Jared Evans MD [address] [place] [address] PCP - General Family Medicine 05/18/22 Extermination Supervisor Relationship Specialty Start Date End Date Jared Evans MD [address] [place] [address] PCP - General 03/06/20 Extermination Supervisor Relationship Specialty Start Date End Date Jared Evans MD [address] [place] [address] PCP - General 03/06/20 Extermination Supervisor Relationship Specialty Start Date End Date Jared Evans MD [address] [place] [address] PCP - General 03/06/20 Extermination Supervisor Relationship Specialty Start Date End Date Jared Evans MD [address] [place] [address] PCP - General 03/06/20 Extermination Supervisor Relationship Specialty Start Date End Date Jared Evans MD [address] [place] [address] PCP - General 03/06/20 Extermination Supervisor Relationship Specialty Start Date End Date Jared Evans MD [address] [place] [address] PCP - General 03/06/20 Extermination Supervisor Relationship Specialty Start Date End Date Jared Evans MD [address] [place] [address] PCP - General 03/06/20 Extermination Supervisor Relationship Specialty Start Date End Date Jared Evans MD [address] [place] [address] PCP - General 03/06/20 Extermination Supervisor Relationship Specialty Start Date End Date Jared Evans MD [address] [place] [address] PCP - General 03/06/20 Extermination Supervisor Relationship Specialty Start Date End Date Jared Evans MD [address] [place] [address] PCP - General 03/06/20 Extermination Supervisor Relationship Specialty Start Date End Date Jared Evans MD [address] [address] PCP - General 03/06/20 Extermination Supervisor Relationship Specialty Start Date End Date Jared Evans MD [address] [place] [address] PCP - General 03/06/20 Extermination Supervisor Relationship Specialty Start Date End Date Jared Evans MD [address] [place] [address] PCP - General 03/06/20 Henok Hernandez PA-C [address] [place] [address] Physician Dross Skimmer Physician Dross Skimmer 04/19/24 Extermination Supervisor Relationship Specialty Start Date End Date Jared Evans MD [address] [place] [address] PCP - General 03/06/20 Henok Hernandez PA-C [address] [address] Physician Dross Skimmer Physician Dross Skimmer 04/19/24 Extermination Supervisor Relationship Specialty Start Date End Date Jared Evans MD [address] [place] [address] PCP - General 03/06/20 Henok Hernandez PA-C [address] [address] Physician Dross Skimmer Physician Dross Skimmer 04/19/24 Extermination Supervisor Relationship Specialty Start Date End Date Jared Evans MD [address] [facility] [place] [address] PCP - General 03/06/20 Henok Hernandez PA-C [address] [address] Physician Dross Skimmer Physician Dross Skimmer 04/19/24 Extermination Supervisor Relationship Specialty Start Date End Date Jared Evans MD [address] [place] [address] PCP - General 03/06/20 Henok Hernandez PA-C [address] [address] Physician Dross Skimmer Physician Dross Skimmer 04/19/24 Extermination Supervisor Relationship Specialty Start Date End Date Jared Evans MD [address] [place] [address] PCP - General 03/06/20 Henok Santizo PA-C [address] [facility] [address] [address] Physician Dross Skimmer Physician Dross Skimmer 04/19/24 Extermination Supervisor Relationship Specialty Start Date End Date Jared Evans MD [facility] [place] [address] PCP - General 03/06/20 Henok Santizo PA-C [address] [address] Physician Dross Skimmer Physician Dross Skimmer 04/19/24 Extermination Supervisor Relationship Specialty Start Date End Date Jared Evans MD [address] [place] [address] PCP - General Family Medicine 05/18/22 Extermination Supervisor Relationship Specialty Start Date End Date Jared Evans MD [address] [place] [address] PCP - General Family Medicine 05/18/22 Extermination Supervisor Relationship Specialty Start Date End Date Jared Evans MD [facility] [place] [address] PCP - General 03/06/20 Henok Santizo PA-C [address] [address] Physician Dross Skimmer Physician Dross Skimmer 04/19/24 Extermination Supervisor Relationship Specialty Start Date End Date Jared Evans MD [address] [place] [address] PCP - General Family Medicine 05/18/22 Extermination Supervisor Relationship Specialty Start Date End Date Jared Evans MD [address] [place] [address] PCP - General Family Medicine 05/18/22 Extermination Supervisor Relationship Specialty Start Date End Date Jared Evans MD [address] [place] [address] PCP - General Family Medicine 05/18/22 Extermination Supervisor Relationship Specialty Start Date End Date Jared Evans MD [address] [place] [address] PCP - General Family Medicine 05/18/22 Extermination Supervisor Relationship Specialty Start Date End Date Jared Evans MD [address] [place] [address] PCP - General Family Medicine 05/18/22 Extermination Supervisor Relationship Specialty Start Date End Date Jared Evans MD [address] [place] [address] PCP - General 03/06/20 Henok Santizo PA-C [address] [place] [address] Physician Dross Skimmer Physician Dross Skimmer 04/19/24 Extermination Supervisor Relationship Specialty Start Date End Date Jared Evans MD [address] [place] [address] PCP - General Family Medicine 05/18/22 Extermination Supervisor Relationship Specialty Start Date End Date Jared Evans MD [address] [place] [address] PCP - General Family Medicine 05/18/22 Extermination Supervisor Relationship Specialty Start Date End Date Jared Evans MD [address] [place] [address] PCP - General Family Medicine 05/18/22 Extermination Supervisor Relationship Specialty Start Date End Date Jared Evans MD [address] [place] [address] PCP - General 03/06/20 Henok Santizo PA-C [address] [place] [address] [place] [address] Physician Dross Skimmer Physician Dross Skimmer 04/19/24 Extermination Supervisor Relationship Specialty Start Date End Date Jared Evans MD [address] [place] [address] PCP - General 03/06/20 Henok Santizo PA-C [address] [place] [address] [place] [address] Physician Dross Skimmer Physician Dross Skimmer 04/19/24 Extermination Supervisor Relationship Specialty Start Date End Date Jared Evans MD [address] [place] [address] PCP - General 03/06/20 Henok Santizo PA-C [address] [place] [address] Physician Dross Skimmer Physician Dross Skimmer 04/19/24 [facility] [place] [address] Group Home Facility 08/22/24 Extermination Supervisor Relationship Specialty Start Date End Date Jared Evans MD [address] [place] [address] PCP - [facility] Medicine 05/18/22 Extermination Supervisor Relationship Specialty Start Date End Date Jared Evans MD [address] [place] [address] PCP - General [facility] Medicine 05/18/22 Team Status: Inactive Member Role [...] October 08, 2024 End: October 08, 2024 Extermination Supervisor Relationship Specialty Start Date End Date Jared Evans MD [address] [facility] [place] [address] PCP - General 03/06/20 Henok Santizo PA-C [address] [place] [address] [place] [address] Physician Dross Skimmer Physician Dross Skimmer 04/19/24 [place] [address] [place] [address] Group Home Facility 08/22/24 Extermination Supervisor Relationship Specialty Start Date End Date Jared Evans MD [address] [facility] [place] [address] PCP - General 03/06/20 Henok Santizo PA-C [address] [address] Physician Dross Skimmer Physician Dross Skimmer 04/19/24 [place] [address] [place] [address] Group Home Facility 08/22/24 Extermination Supervisor Relationship Specialty Start Date End Date Jared Evans MD [address] [facility] [place] [address] PCP - General 03/06/20 Henok Santizo PA-C [address] [address] Physician Dross Skimmer Physician Dross Skimmer 04/19/24 [place] [address] [place] [address] Group Home Facility 08/22/24 Extermination Supervisor Relationship Specialty Start Date End Date Jared Evans MD [address] [place] [address] PCP - General 03/06/20 Henok Santizo PA-C [address] [place] [address] [place] [address] Physician Dross Skimmer Physician Dross Skimmer 04/19/24 [place] [address] [place] [address] Group Home Facility 08/22/24 Extermination Supervisor Relationship Specialty Start Date End Date Jared Evans MD [address] [place] [address] PCP - General 03/06/20 Henok Santizo PA-C [address] [address] Physician Dross Skimmer Physician Dross Skimmer 04/19/24 [facility] [address] [place] [address] Group Home Facility 08/22/24 Extermination Supervisor Relationship Specialty Start Date End Date Megan Montoya [address] [place] [phone] PCP - General Internal Medicine 12/13/24 Henok Santizo PA-C [address] [place] [address] [place] [address] Physician Dross Skimmer Physician Dross Skimmer 04/19/24 [facility] [address] [place] [address] Group Home Facility 08/22/24 Extermination Supervisor Relationship Specialty Start Date End Date Megan Montoya [address] [place] [phone] PCP - General Internal Medicine 12/13/24 Henok Santizo PA-C [address] [place] [address] Physician Dross Skimmer Physician Dross Skimmer 04/19/24 Kristyn Blankenship MD [address] [place] [address] Consulting Physician Vascular Surgery 12/24/[address] [address] Group Home Facility 08/22/24 Extermination Supervisor Relationship Specialty Start Date End Date Jared Evans MD [address] [place] [address] PCP - General Family Medicine 05/18/22 Extermination Supervisor Relationship Specialty Start Date End Date Jared Evans MD [address] [place] [address] PCP - General Family Medicine 05/18/22 Extermination Supervisor Relationship Specialty Start Date End Date Megan Montoya [address] [place] [id number] PCP - General Internal Medicine 12/13/24 Henok Santizo PA-C [address] [place] [address] Physician Dross Skimmer Physician Dross Skimmer 04/19/24 Kristyn Blankenship MD [address] [place] [address] Consulting Physician Vascular Surgery 12/24/[address] [place] [address] [place] [address] Group Home Facility 08/22/24 Scheduled Active and Recently Administ ered Medications [...] to 3.6-21.7 mL/hr), IntraVENous, Continuous, Starting on e 04/03/24 at 2235, HIGH Dose Heparin Weight Based [...] sedation for opioid reversal - MUST notify transportation maintenance specialist provider immediately after first dose, may give [...] Oral, 3 times daily, First dose on Maida 07/05/24 at 1615 1738 (Given - Provider: Cecilia Lopes RN)2028 (Given - Provider: Luis Murry RN) 0907 (Given - Provider: Cecilia Lopes RN)1444 (Given - Provider: Cecilia Lopes RN)210 (Given - Provider: Luis Murry RN) 0936 (Given - Provider: La Avila, RN) atorvastatin (Lipitor) tablet 80 mg 80 [...] RN) 09 (Given - Provider: Cecilia Lopes RN)1447 (Given - Provider: Cecilia Lopes RN)210 (Given - Provider: Luis Murry RN) 0936 (Given - Provider: La Avila RN) enoxaparin (Lovenox) syringe 70 mg 70 mg, SubCUTAneous, Every 12 hours, First dose on Tue07/05/24 at 1500 1738 (Given - Provider: Cecilia Lopes RN) 0406 (Given - Provider: Luis Murry RN)1443 (Given - Provider: Cecilai Lopes RN) 0349 (Given - Provider: Luis Murry RN) fentaNYL (Sublimaze) injection 25 mcg (COMPLETED) 25 mcg, IntraVENous, Once, On Tue07/05/24 at 0455, For 1 dose, If oral [...] For 1 dose 0517 (Given - Provider: Arni Jama, RADHA) lisinopril tablet 40 mg 40 [...] refused) 0911 (Given - Provider: Cecilia Lopes RN)1999 (Not Given - Provider: Luis Murry RN - Reason: Patient/family refused) 0936 (Given - Provider: La Avila RN) morphine injection 4 mg (COMPLETED) 4 [...] Cecilia Lopes RN)1303 (Given - Provider: Cecilia Lopes RN)1627 (Given - Provider: Cecilia Lopes RN)2106 (Given - Provider: Luis Murry RN) 0000 (Given - Provider: Luis Murry RN)0349 (Given - Provider: Luis Murry RN)0936 (Given - Provider: La Avila RN)1200 (Canceled Entry - Provider: Automatic Discharge Provider - Comment: Automatically canceled at discontinue of medication order) sodium chloride 0.9 % bolus 250 mL (COMPLETED) 250 mL, IntraVENous, at 250 mL/hr, Administer over 1 Hours, Once, On Miada 07/05/24 at 0430, For 1 dose 0542 [...] 0645 (New Bag - Provider: Arin Jama, RADHA)0922 (Rate/Dose Verify - Provider: Melanie Lopez RN) 0918 (New Bag - Provider: [...] Arin Jama RN)1005 (See Alternative - Provider: Melanie Lopez RN) 1217 (See Alternative - Provider: Cecilia Lopes RN)2108 (See Alternative - Provider: Luis Murry RN) 0300 (See Alternative - Provider: Luis Murry RN)0724 (See Alternative - Provider: La Avila RN) HYDROmorphone (Dilaudid) injection 0.5 mg(Linked Group 2) [...] Provider: Arin Jama RN)1005 (Given - Provider: Melanie Lopez, RN) 1217 (Given - Provider: Cecilia Lopes, RN)2108 (Given - Provider: Luis Murry, RN) 0300 (Given - Provider: Luis Murry, RADHA)0724 (Given - Provider: La Avila, RADHA) iopamidol (Isovue-370) 76 % injection 100 mL (COMPLETED) 100 mL, IntraVENous, IMG once PRN, contrast, Starting on Maida 07/05/24 at 0440, For 1 dose 0440 (Given [...] further options ordered. Scheduled Medication Order 08/14/2024 08/15/202408/16/2024 amLODIPine (Norvasc) tablet 5 mg 5 mg, [...] 2135 (Given - Provider: Wanda Mendoza RN) 214 (Given - Provider: Jessica Bailey RN) [...] RN) 0945 (Given - Provider: Cici Perez RN)214 (Given - Provider: Jessica Bailey RN) 1024 [...] After every IV line use, Starting on [facility] 11/22/24 at 0815, Preprocedure, For Line Patency: [...] BE BASED ON THE PRIMARY CLINICAL RECORDS. [facility]. provides no warranty or guarantee of the accuracy or completeness of information in this document.
[2025-02-15 08:49] LABS: Hematocrit 34.2 % (37-47); Hemoglobin 10.8 g/dL (12.0-15.0); Mean Corp Hgb Conc 31.6 g/dL (32-36); Mean Corpuscular Volume 96.3 fL (81-99); Mean Platelet Vol. 10.4 fl (6.2-12.0); Platelet Count 239 K/mm3 (150-450); RBC Distribution Width CV 13.8 % (11.6-14.6); RBC Distribution Width SD 49.1 fl (35.1-43.9); Red Blood Count 3.55 M/mm3 (4.2-5.4); White Blood Count 4.3 K/mm3 (4.4-11.0)
[2025-02-15 09:30] LABS: Anion Gap 11 (5-15); BUN 21 mg/dL (4-19); BUN/Creat Ratio 18.4 RATIO (10-20); Calcium,Total 9.4 mg/dL (7.6-11.0); Carbon Dioxide 16.1 mmol/L (21.0-32.0); Chloride 107 mmol/L (98-108); Glucose 90 mg/dL (70-99); Potassium 6.1 mmol/L (3.3-5.1)
== END ==
LOC: OLS.SANC 05:00
PROVIDERS: Visit Provider Internal Medicine
DX: I48.91 Unspecified atrial fibrillation (principal); I50.9 Heart failure, unspecified
CPT/HCPCS: 36415; 80048; 85027

== ENCOUNTER → 2025-02-18 05:00 | Outpatient (REF) | payer MEDICARE, SELFPAY ==
--- OUTSIDE RECORDS SUMMARY | 2025-02-18 04:46 | XMS RPT_ITS | CCD ---
Author Organization [facility] Care Team Providers [facility] Consultant Name Role Phone Maryuri King Primary Care Provider Jared Evans Primary Care Provider Pcp, No Primary Care Provider UnavailJared Mckinnon MD Primary Care Provider BERNIE BIRD Admitting Unavailable IWONA CHU Attending Unavailable MING OLSON Consulting Unavailable SIM ELIZABETH Attending Unavailable PRIMO DODD Referring Unavailable Jared Evans MD Primary Care Provider [phone] Jared Evans MD Primary Care Provider [phone] Henok Hernandez PA-C Unavailable Henok Santizo PA-C [...] Unavailable MAMMO, SAVANA A Referring Unavailable EV[facility], [facility] Primary Care Unavailable MAMMO, SAVANA A Referring Unavailable EVANS, [facility] Primary Care Unavailable MAMMO, SAVANA A Attending Unavailable EVANS, EUREKA N Primary Care Unavailable MAMMO, SAVANA A Attending Unavailable EVANS, EUREKA N Primary Care Unavailable MAMMO, SAVANA A Attending Unavailable EVANS, EUREKA N Primary Care Unavailable MAMMO, SAVANA A Referring Unavailable EVANS, [facility] Primary Care Unavailable MADHU, DEVIKA A Admitting Unavailable MADHU, DEVIKA A Attending Unavailable EVANS, EUREKA N Primary Care Unavailable AZAR BURK Consulting Unavailable MAMMO, SAVANA A Admitting Unavailable MAMMO, SAVANA A Attending Unavailable EVANS, [facility] Primary Care Unavailable MAMMO, SAVANA A Attending Unavailable SELF Referring Unavailable EVANS, [facility] Primary Care Unavailable EVANS, [facility] Primary Care Unavailable SELF Referring Unavailable EVANS, [facility] Primary Care Unavailable SELF Referring Unavailable EVANS, [facility] Primary Care Unavailable SELF Referring Unavailable EVANS, [facility] Primary Care Unavailable MAMMO, SAVANA A Attending Unavailable MAMMO, SAVANA A Referring Unavailable EVANS, [facility] Primary Care Unavailable SELF Referring Unavailable EVANS, [facility] Primary Care Unavailable EVANS, EUREKA Primary Care Unavailable ANDRE WHIPPLE Consulting Unavailable PRATIBHA AVELAR Admitting Unavailable JORDIN ROLDAN Attending Unavailable EVANS, EUREKA Primary Care Unavailable DEVIN, RED Attending Unavailable DEVIN, RED Admitting Unavailable EVANS, EUREKA Primary Care Unavailable KRZYSZTOF, KRISTYN Admitting Unavailable KRZYSZTOF, KRISTYN Attending Unavailable EVANS, EUREKA Primary Care Unavailable EVANS, EUREKA Primary Care Unavailable EVANS, EUREKA Primary Care Unavailable TRISTA, MARTHA Admitting Unavailable BARDEVIKA SMITH Attending Unavailable EVANS, EUREKA Primary Care Unavailable DARLYNHENOK Attending Unavailable EVANS, EUREKA Primary Care Unavailable KRZYSZTOF, KRISTYN Attending Unavailable EVANS, EUREKA Primary Care Unavailable KRZYSZTOF, KRISTYN Attending Unavailable NAKIA, ANTHONY K Referring Unavailable EVANS, EUREKA Primary Care Unavailable EVANS, EUREKA Primary Care Unavailable EVANS, EUREKA Primary Care Unavailable MARIANA KING Referring Unavailable EVANS, EUREKA Primary Care Unavailable MARIANA KING Referring Unavailable MEGAN MONTOYA Primary Care Unavailable KRZYSZTOF, KRISTYN Referring Unavailable KRZYSZTOF, KRISTYN Attending Unavailable EVANS, JARED Primary Care Unavailable EVANS, JARED Referring Unavailable EVANS, JARED Attending Unavailable EVANS, JARED Primary Care Unavailable EVANS, JARED Primary Care Unavailable EVANS, JARED Primary Care Unavailable GODJESSICA, HARMONY Attending Unavailable DARLYN, HENOK Attending Unavailable [...] OLS, Megan Attending Unavailable Katsaros OLS, Peter Attending Unavailable Allergies Allergy Classification Reported Allergen(s) Allergy Type Date of Onset Reaction(s) Facility (20 sources) Amoxicillin Drug Allergy 0 [place], [place] (20 sources) fluticasone / salmeterol Drug Allergy 0 Intolerance [place], [place] (20 sources) Acetaminophen / oxyCODONE; Translations: [OXYCODONE-ACETAM INOPHEN] Drug Allergy 2 Itching [facility] Other [facility] (9 sources) Ampicillin; Translations: [AMPICILLIN] Drug Allergy 4 Unknown [facility] (12 sources) Amoxicillin-Pot Clavulanate Drug Allergy 5 [facility] (1 source) FLUTICASONE PROPION-SALMETERO L; Translations: [FLUTICASONE PROPION-SALMETERO L] Propensity to adverse reactions to drug (disorder) 0 [facility] Repository Medications Current Medications Medication Drug Class(es) [...] for pain for up to 3 days. [id number] 200 actuat albuterol 0.09 mg/actuat metered dose [...] 07/09/2024 Discontinued amLODIPine 5 mg oral tablet (18 sources) Dihydropyridine Calcium Channel Essie Start: 08-12-2024 [...] 1 tablet by mouth twice daily apixaban (Eliquis) 5 MG tablet Take 1 tablet (5 mg) by mouth 2 times daily. 08/09/2024 Active Start: 02-18-2023 End: 04-13-2024 take 1 tablet by mouth twice daily Eliquis 5 MG tablet Take 5 mg by mouth 2 times daily. 02/18/2023 04/13/2024 Discontinued (Stop taking at discharge) Start: 06-28-2022 take 2 tablets by mo [facility] twice daily, then take 1 tablet [...] Comment on above: Take 1 tablet by [facility] three times daily. atorvastatin 80 mg oral tablet (20 sources) HMG-CoA Reductase Inhibitor Start: End: take 1 tablet by mouth once daily atorvastatin (Lipitor) 80 MG tablet Take 1 tablet (80 mg) by mouth daily. 08/09/2024 Active bacitracin 0.5 unt/mg topical ointment (1 source) Start: 2 End: 2 bacitracin 500 unit/gram ointment Apply to affected area once daily for 7 days. 28.4 g 1 06/29/2022 07/06/2022 Active Comment on above: Apply to affected ar ea once daily for 7 days. benoxinate hydrochloride 4 mg/ml / fluorescein sodium 3 mg/ml ophthalmic solution (5 sources) Diagnostic Dye Start: 5 End: 5 fluorescein-benoxina te 0.3-0.4 % 1 Drop (FLURESS) Start: 09-05-2024 End: 09-05-2024 fluorescein-benoxinate 0.3-0 .4 % 1 Drop (FLURESS) Start: 08-01-2024 End: 08-02-2024 fluorescein-benoxinate 0.3-0 .4 % 1 Drop (FLURESS) Start: 08-01-2024 End: 08-02-2024 1 Drop, BOTH EYES, DIRECT ED, Starting on Tue08/01/24 at 1300, Until Maida 08/02/24 at 0059, Administer for applanation tonometry. In the event of a Fluress shortage, administer [place]-Fluor 1 drop into both eyes as directed [...] 500 mg clopidogrel 75 mg oral tablet (9 sources) [id number] Platelet Inhibitor Start: 11-22-2024 End: [...] on above: Take 2 tablets by mo [facility] every 12 hours for 3 days, [...] Comment on above: Take 1 tablet by [facility] every 12 hours for 7 days. 0.5 [...] for dry skin. Active lactobacillus rhamnosus gg [id number] unt oral capsule (2 sources) Start: 06-29-20 End: 07-29-19 23 take 1 capsule by mouth once daily lactobacillus rhamnosus (CULTURELLE) 10 billion cell capsule Take 1 capsule by mouth once daily. 30 capsule 0 06/29/2022 07/29/2022 Active Comment on above: Take 1 capsule by [facility] once daily. lidocaine 0.04 mg/mg [...] spray (7 sources) Anticholinergic, beta2-Adrenergic Agonist Start: 01-01-2 025 take 2 puff(s) by inhalation once daily [...] 2259, Administer for dilation PR[facility] FROM LIGHT, [facility] Start: 10-01-2024 End: 10-01-2024 PHENYLephrine 2.5 % 1 Drop ( AK-DILATE, KEL-SYNEPHRINE) Start: 10-01-2024 End: 10-01-2024 1 Drop, RIGHT EYE, DIRECT ED, Starting on Tue10/01/24 at 1030, Until Tue10/01/24 at 2229, Administer for dilation PROTECT FROM LIGHT, [facility] Start: 09-05-2024 End: 09-05-2024 PHENYLephrine 2.5 % 1 Drop ( AK-DILATE, KEL-SYNEPHRINE) Start: 09-05-2024 End: 09-05-2024 1 Drop, RIGHT EYE, DIRECT ED, Starting on Tue09/05/24 at 1030, Until Tue09/05/24 at 2229, Administer for dilation PROTECT FROM LIGHT, [facility] CLINIC MED ORDERS Start: 08-01-2024 End: 08-02-2024 PHENYLephrine 2.5 % 1 Drop ( AK-DILATE, KEL-SYNEPHRINE) Start: 08-01-2024 End: 08-02-2024 1 Drop, RIGHT EYE, DIRECT ED, Starting on Tue08/01/24 at 1300, Until Maida 08/02/24 at 0059, Administer for dilation PROTECT FROM LIGHT, [facility] Start: 07-16-2024 End: 07-16-2024 PHENYLephrine 2.5 % 1 Drop ( AK-DILATE, KEL-SYNEPHRINE) Start: 07-16-2024 End: 07-16-2024 1 Drop, RIGHT EYE, DIRECT ED, Starting on 07/16/24 at 0900, Until Tue07/16/24 at 2059, Administer for dilation PROTECT FROM LIGHT Start: 07-09-2024 End: 07-09-2024 PHENYLephrine 2.5 % 1 Drop ( AK-DILATE, KEL-SYNEPHRINE) polyethylene glycol 3350 59181 mg powder for oral solution (11 sources) [...] 1300, Until Tue08/02/24 at 0059, Administer for dilation, [facility]INIC MED ORDERS Start: 07-16-2024 End: 07-16-2024 tropicamide 1 % 1 Drop (MYDR IACYL) Start: 07-16-2024 End: 07-16-2024 1 Drop, RIGHT EYE, DIRECT ED, Starting on Tue07/16/24 at 0900, Until Tue07/16/24 at 2059, Administer for dilation Start: 07-09-2024 End: 07-09-2024 tropicamide 1 % 1 Drop (MYDR IACYL) 7 actuat umeclidinium 0.0625 mg/actuat dry powder inhaler (11 sources) Anticholinergic Start: 09-29-2024 take 1 puff(s) [...] twenty-four hours 1,000 mg, Oral, Once, On Tue11/22/24 at 0830, For 1 dose, Preprocedure, Maximum dose of acetaminophen is 4000 mg from all sources in 24 hours. Do not administer if patient has taken tylenol Start: 08-03-2024 End: 08-16-2024 take 1 tablet by mouth every six hours as needed for pain and fever acetaminophen (Tylenol) tablet 650 mg Start: 07-17-2024 take 2 tablets by mo [facility] four times daily acetaminophen (Tylenol) 325 MG [...] mg Start: 06-28-2022 take 2 tablets by [facility] every six hours acetaminophen (TYLENOL) 325 mg tablet Take 2 tablets by mouth every 6 hours. 07/17/2024 Active acetaminophen (T YLENOL) 325 mg cap Take by mouth. 0 Active Comment on above: Take by mouth. Take 2 tablets by [facility] every 6 hours as needed for pain. [...] sodium chloride 0.9 % 100 mL IVPB (Add-Atwood) (2 sources) Start: End: take 3000 mg intravenously every six hours 3,000 mg, IntraVENous, at 200 mL/hr, Administer over 30 Minutes, Every 6 hours, First dose on Tue08/03/24 at 1200, For 18 doses, ADD-Atwood bag, Suspected Indication (Select all that apply): Aspiration Pneumonia aspirin 81 mg delayed release oral tablet (9 sources) Platelet Aggregation Inhibitor, Nonsteroidal Anti-inflammatory Drug [...] First dose on Maida 07/05/24 at 1400 12 hr buPROPion hydrochloride 150 [...] Anesthetic Start: 03-07-2020 End: 03-07-2020 lidocaine-EPINEPHrine 1 percent-1:[id number] injection 8 mL ergocalciferol 1.25 mg oral capsule (3 sources) Provitamin D2 Compound End: 07-05-2024 take 1 capsule by mouth every week ergocalciferol (Vitamin D2) 1.25 MG (09640 UT) capsule Take 1.25 mg by mouth [...] Start: 05-19-2023 take 1 puff(s) by mo [facility] once daily Trelegy Ellipta 100-62.5-25 MCG/ACT aerosol [...] tablet by donna th once daily lisinopril 40 MG tablet Take 40 mg by mouth daily. 05/26/2022 Active Start: 05-26-2022 End: 04-13-2024 take 1 [...] on Tue04/03/24 at 1820 sodium zirconium cyclosilicate 54157 mg powder for oral suspension (2 sources) [...] lower extremity (HCC) Take as directed by [facility] Antico[facility] (90 tablets = 90 [...] lower extremity (HCC) Take as directed by [facility] (45 tablets= 30 day supply) 45 tablet 1 04/27/2024 Active Start: 04-09-2024 7.5 mg, Oral, Once Warfarin, On Maida 04/12/24 at 1700, For 1 dose Start: 04-07-2024 warfarin (Coum jay jay) 5 MG tablet Take 1 tablet (5mg) on 04/13 in the evening Take 1.5 tablets (7.5mg) on 04/14 Take 1 tablet (5mg) on 04/[address] [facility] pharmacy for further dosing 30 tablet 04/13/2024 [...] the circulatory system] Onset: 5 Episodic Other aftercare (4 sources) ferry terminal agent (current) use of anticoagulants; Translations: [nursing home (current) use of anticoagulants] Onset: 2 Episodic [...] sources) Long-term current use of anticoagulant; Translations: [ferry terminal agent (current) use of anticoagulants] Onset: 0 03-07-2020 Episodic Other aftercare (1 source) Other care home (current) drug therapy; Translations: [Other adjunct faculty for medical terminology (current) drug therapy] Onset: 5 Episodic Other [...] [Altered mental status, unspecified] Onset: 5 Episodic Retinal detachments; defects; vascular occlusion; and retinopathy (20 sources) Detachment of retina of left eye; Translations: [Serous retinal detachment, left eye] Onset: 0 05-02-2022 Episodic Skin and subcutaneous tissue infections (20 [...] Test Name Value Interpretation Reference Range Facility Basic Metabolic Profile (BMP )on 02-15-2025 BUN/CRE 18.4 RATIO Normal 10-20 [facility] Comment on above: Order Comment: 104-1 Performed By: #### L 300.3900 #### [facility] [address] [place], [address] Calcium [Mass/Vol] 9.4 mg/dL Normal 7.6-11.0 [facility] Comment on above: Order Comment: 104-1 Performed By: #### L 300.3900 #### [facility] [address] [place], [address] Chloride [Moles/Vol] 107 mmol/L Normal 98-108 [facility] Comment on above: Order Comment: 104-1 Performed By: #### L 300.3900 #### [facility] [address] [place], [address] CO2 [Moles/Vol] 16.1 mmol/L Low 21.0-32.0 [facility] Comment on above: Order Comment: 104-1 Performed By: #### L 300.3900 #### [facility] [address] [place], [address] Creatinine [Mass/Vol] 1.12 mg/dL Normal 0.70-1.20 [facility] Comment on above: Order Comment: 104-1 Performed By: #### L 300.3900 #### [facility] [address] [place], [address] GAP 11 Normal 5-15 [facility] Comment on above: Order Comment: 104- Performed By: #### L 300.3900 #### [facility] [address] [place], [address] GFR/1.73 sq M.predicted among non-blacks MDRD (S/P/Bld) [Vol rate/Area] 48 mL/min/{1.73_m2} Low >60 [facility] Comment on above: Order Comment: Result Comment: mL/m in/1.73m2 CKD-EPI Creatinine Equation (2020) Performed By: #### L 300.3900 #### [facility] [address] [place], [address] Glucose [Mass/Vol] 90 mg/dL Normal 70-99 [facility] Comment on above: Order Comment: - Performed By: #### L 300.3900 #### [facility] [address] [place], [address] Potassium [Moles/Vol] 6.1 mmol/L Invalid Interpretation Code 3.3-5.1 [facility] Comment on above: Order Comment: Result Comment: Crit ical result called 02/15/2025-09:30 by Cirilo Bird to Shannen Christianson. Hemolysis present, Results??could be affected. ?? Critical Result(s) Called at: by:??Results read back by same. Performed By: #### L 300.3900 #### [facility] [address] [place], [address] Sodium [Moles/Vol] 134 mmol/L Normal 133-145 [facility] Comment on above: Order Comment: - Performed By: #### L 300.3900 #### [facility] [address] [place], [address] Urea nitrogen [Mass/Vol] 21 mg/dL High 4-19 [facility] Comment on above: Order Comment: 104-1 Performed By: #### L 300.3900 #### [facility] [address] [place], [address] CBC-Complete Blood Cnt No Anna byrne 02-15-2025 Erythrocyte distribution width (RBC) [Ratio] 13.8 % Normal 11.6-14.6 [facility] Comment on above: Order Comment: 104-1 Performed By: #### L 300.3900 #### [facility] [address] [place], [address] Hematocrit (Bld) [Volume fraction] 34.2 % Low 37-47 [facility] Comment on above: Order Comment: 104-1 Performed By: #### L 300.3900 #### [facility] [address] [place], [address] Hemoglobin (Bld) [Mass/Vol] 10.8 g/dL Low 12.0-15.0 [facility] Comment on above: Order Comment: 104-1 Performed By: #### L 300.3900 #### [facility] [address] [place], [address] MCH (RBC) [Entitic mass] 30.4 pg Normal 27.0-32.0 [facility] Comment on above: Order Comment: 104-1 Performed By: #### L 300.3900 #### [facility] [address] [place], [address] MCHC (RBC) [Mass/Vol] 31.6 g/dL Low 32-36 [facility] Comment on above: Order Comment: 104-1 Performed By: #### L 300.3900 #### [facility] [address] [place], [address] MCV (RBC) [Entitic vol] 96.3 fL Normal 81-99 [facility] Comment on above: Order Comment: 104-1 Performed By: #### L 300.3900 #### [facility] [address] [place], [address] Platelet mean volume (Bld) [Entitic vol] 10.4 fL Normal 6.2-12.0 [facility] Comment on above: Order Comment: 104-1 Performed By: #### L 300.3900 #### [facility] [address] [place], [address] Platelets (Bld) [#/Vol] 239 10*3/uL Normal 150-450 [facility] Comment on above: Order Comment: 104-1 Performed By: #### L 300.3900 #### [facility] [address] [place], [address] RBC (Bld) [#/Vol] 3.55 10*6/uL Low 4.2-5.4 [facility] Comment on above: Order Comment: 104-1 Performed By: #### L 300.3900 #### [facility] [address] [place], [address] RDW SD 49.1 fl High 35.1-43.9 [facility] Comment on above: Order Comment: 104-1 Performed By: #### L 300.3900 #### [facility] [address] [place], [address] WBC (Bld) [#/Vol] 4.3 10*3/uL Low 4.4-11.0 [facility] Comment on above: Order Comment: 104-1 Performed By: #### L 300.3900 #### [facility] [address] [place], [address] Prothrombin Time w/INRon INR Normal [facility] Comment on above: Order Comment: 104-1 Result Comment: FING ERSTICK Performed By: #### L 300.3900 #### [facility] [address] [place], [address] PROTIME Normal 11.7-14.9 [facility] Comment on above: Order Comment: 104-1 Result Comment: EBENEZER ERSTICK Performed By: #### L 300.3900 #### [facility] [address] [place], [address] Protime w/INR Fingerstickon 02-11-2025 INR Coag (PPP) [Relative time] 2.5 {INR} Normal [facility] Comment on above: Result Comment: Crit ical Value > 4.0 Performed By: #### L 300.3900 #### [facility] [address] [place], [address] Protime Co[place]en 26.4 SEC High 11.7-14.9 [facility] Comment on above: Performed By: #### L 300.3900 #### [facility] [address] [place], [address] Protime w/INR Fingerstickon 02-07-2025 INR Coag (PPP) [Relative time] 2.2 {INR} Normal [facility] Comment on above: Result Comment: Crit ical Value > 4.0 Performed By: #### L [id number] #### [facility] [address] [place], [address] Protime [place] 23.6 SEC High 11.7-14.9 [facility] Comment on above: Performed By: #### L 9200.0000 #### [facility] [address] [place], [address] Protime w/INR Fingerstickon 02-04-2025 INR Coag (PPP) [Relative time] 3.6 {INR} Normal [facility] Comment on above: Result Comment: Crit ical Value > 4.0 Performed By: #### L [id number] #### [facility] [address] [place], [address] Protime [place] 36.4 SEC High 11.7-14.9 [facility] Comment on above: Performed By: #### L [id number] #### [facility] [address] [place], [address] Prothrombin Time w/INRon INR Coag (PPP) [Relative time] 3.3 {INR} Normal [facility] Comment on above: Order Comment: 104.1 Performed By: #### L [id number] #### [facility] [address] [place], [address] PT Coag (PPP) [Time] 34.2 s High 11.7-14.9 [facility] Comment on above: Order Comment: 104.1 Performed By: #### L 9200.0000 #### [facility] [address] [place], [address] Protime w/INR Fingerstickon 01-28-2025 INR Coag (PPP) [Relative time] 2.8 {INR} Normal [facility] Comment on above: Result Comment: Crit ical Value > 4.0 Performed By: #### L [id number] #### [facility] [address] [place], [address] Protime [place]agsen 29.1 SEC High 11.7-14.9 [facility] Comment on above: Performed By: #### L [id number] #### [facility] [address] [place], [address] Protime w/INR Fingerstickon 01-25-2025 INR Coag (PPP) [Relative time] 3.4 {INR} Normal [facility] Comment on above: Result Comment: Crit ical Value > 4.0 Performed By: #### L 300.3900 #### [facility] [address] [place], [address] Protime [place]en 34.5 SEC High 11.7-14.9 [facility] Comment on above: Performed By: #### L 300.3900 #### [facility] [address] [place], [address] Prothrombin Time w/INRon INR Coag (PPP) [Relative time] 2.8 {INR} Normal [facility] Comment on above: Order Comment: 104-1 Performed By: #### L 300.3900 #### [facility] [address] [place], [address] PT Coag (PPP) [Time] 30.5 s High 11.7-14.9 [facility] Comment on above: Order Comment: 104-1 Performed By: #### L 300.3900 #### [facility] [address] [place], [address] Prothrombin Time w/INRon INR Coag (PPP) [Relative time] 2.5 {INR} Normal [facility] Comment on above: Order Comment: 104.1 Performed By: #### L [id number] #### [facility] [address] [place], [address] PT Coag (PPP) [Time] 27.1 s High 11.7-14.9 [facility] Comment on above: Order Comment: 104.1 Performed By: #### L [id number] #### [facility] [address] [place], [address] Prothrombin Time w/INRon INR Coag (PPP) [Relative time] 2.4 {INR} Normal [facility] Comment on above: Order Comment: DID Kareem MENDELDIANAKONRAD TWICE, BOTH TIMES GOT A 'NO CLOT DETECTED'MESSAGE, SO VA A VENOUS SAMPLE. SPOKE WITH NURSE TINEO Performed By: #### L 9200.0000 #### [facility] [address] [place], [address] PT Coag (PPP) [Time] 26.9 s High 11.7-14.9 [facility] Comment on above: Order Comment: DID Kareem STRANGE TWICE, BOTH TIMES GOT A 'NO CLOT DETECTED'MESSAGE, SO VA A VENOUS SAMPLE. SPOKE WITH NURSE TINEO Performed By: #### L [id number] #### [facility] [address] [place], [address] Protime w/INR Fingerstickon 01-17-2025 INR Coag (PPP) [Relative time] 1.9 {INR} Normal [facility] Comment on above: Result Comment: Crit ical Value > 4.0 Performed By: #### L [id number] #### [facility] [address] [place], [address] Protime Coagsen 20.8 SEC High 11.7-14.9 [facility] Comment on above: Performed By: #### L [id number] #### [facility] [address] [place], [address] Protime w/INR Fingerstickon 01-16-2025 INR Coag (PPP) [Relative time] 1.5 {INR} Normal [facility] Comment on above: Result Comment: Crit ical Value > 4.0 Performed By: #### L [id number] #### [facility] [address] [place], [address] Protime [place]en 17.2 SEC High 11.7-14.9 [facility] Comment on above: Performed By: #### L [id number] #### [facility] [address] [place], [address] Prothrombin Time w/INRon INR Coag (PPP) [Relative time] 1.2 {INR} Normal [facility] Comment on above: Performed By: #### L 300.3900 #### [facility] [address] [place], [address] PT Coag (PPP) [Time] 15.4 s High 11.7-14.9 [facility] Comment on above: Performed By: #### L 300.3900 #### [facility] [address] [place], [address] 36on 01-08-2025 36 Normal [facility] Basic Metabolic Profile (BMP )on 01-07-2025 BUN/CRE 17.7 RATIO Normal 10-20 [facility] Comment on above: Order Comment: 104.1 Performed By: #### L [id number] #### [facility] [address] [place], [address] Calcium [Mass/Vol] 9.1 mg/dL Normal 7.6-11.0 [facility] Comment on above: Order Comment: 104.1 Performed By: #### L [id number] #### [facility] [address] [place], [address] Chloride [Moles/Vol] 109 mmol/L High 98-108 [facility] Comment on above: Order Comment: 104.1 Performed By: #### L [id number] #### [facility] [address] [place], [address] CO2 [Moles/Vol] 19.7 mmol/L Low 21.0-32.0 [facility] Comment on above: Order Comment: 104.1 Performed By: #### L [id number] #### [facility] [address] [place], [address] Creatinine [Mass/Vol] 1.15 mg/dL Normal 0.70-1.20 [facility] [facility] Comment on above: Order Comment: 104.1 Performed By: #### L 9200.0000 #### [facility] [address] [place], [address] GAP 10 Normal 5-15 [facility] Comment on above: Order Comment: 104.1 Performed By: #### L 9200.0000 #### [facility] [address] [place], [address] GFR/1.73 sq M.predicted among non-blacks MDRD (S/P/Bld) [Vol rate/Area] 47 mL/min/{1.73_m2} Low >60 [facility] Comment on above: Order Comment: 104.1 Result Comment: mL/m in/1.73m2 CKD-EPI Creatinine Equation (2020) Performed By: #### L 9200.0000 #### [facility] [address] [place], [address] Glucose [Mass/Vol] 87 mg/dL Normal 70-99 [facility] Comment on above: Order Comment: 104.1 Performed By: #### L 9200.0000 #### [facility] [address] [place], [address] Potassium [Moles/Vol] 5.0 mmol/L Normal 3.3-5.1 [facility] Comment on above: Order Comment: 104.1 Performed By: #### L 9200.0000 #### [facility] [address] [place], [address] Sodium [Moles/Vol] 138 mmol/L Normal 133-145 [facility] Comment on above: Order Comment: 104.1 Performed By: #### L 9200.0000 #### [facility] [address] [place], [address] Urea nitrogen [Mass/Vol] 20 mg/dL High 4-19 [facility] Comment on above: Order Comment: 104.1 Performed By: #### L 9200.0000 #### [facility] [address] [place], [address] CBC-Complete Blood Cnt No Di ffon 01-07-2025 Erythrocyte distribution width (RBC) [Ratio] 16.5 % High 11.6-14.6 [facility] Comment on above: Order Comment: 104.1 Performed By: #### L 9200.0000 #### [facility] [address] [place], [address] Hematocrit (Bld) [Volume fraction] 30.4 % Low 37-47 [facility] Comment on above: Order Comment: 104.1 Performed By: #### L 9200.0000 #### [facility] [address] [place], [address] Hemoglobin (Bld) [Mass/Vol] 9.8 g/dL Low 12.0-15.0 [facility] Comment on above: Order Comment: 104.1 Performed By: #### L 9200.0000 #### [facility] [address] [place], [address] MCH (RBC) [Entitic mass] 29.9 pg Normal 27.0-32.0 [facility] Comment on above: Order Comment: 104.1 Performed By: #### L 9200.0000 #### [facility] [address] [place], [address] MCHC (RBC) [Mass/Vol] 32.2 g/dL Normal 32-36 [facility] Comment on above: Order Comment: 104.1 Performed By: #### L 9200.0000 #### [facility] [address] [place], [address] MCV (RBC) [Entitic vol] 92.7 fL Normal 81-99 [facility] Comment on above: Order Comment: 104.1 Performed By: #### L 9200.0000 #### [facility] [address] [place], [address] Platelet mean volume (Bld) [Entitic vol] 10.0 fL Normal 6.2-12.0 [facility] Comment on above: Order Comment: 104.1 Performed By: #### L 9200.0000 #### [facility] [address] [place], [address] Platelets (Bld) [#/Vol] 254 10*3/uL Normal 150-450 [facility] Comment on above: Order Comment: 104.1 Performed By: #### L 9200.0000 #### [facility] [address] [place], [address] RBC (Bld) [#/Vol] 3.28 10*6/uL Low 4.2-5.4 [facility] Comment on above: Order Comment: 104.1 Performed By: #### L 9200.0000 #### [facility] [address] [place], [address] RDW SD 55.9 fl High 35.1-43.9 [facility] Comment on above: Order Comment: 104.1 Performed By: #### L 9200.0000 #### [facility] [address] [place], [address] WBC (Bld) [#/Vol] 4.5 10*3/uL Normal 4.4-11.0 [facility] Comment on above: Order Comment: 104.1 Performed By: #### L 9200.0000 #### [facility] [address] [place], [address] 36on 01-04-2025 36 Normal [facility] 36 Normal [facility] Progress Noteon 12-24-2024 Progress Note Normal [facility] No Panel Informationon 12-13 Left MICHELLE 0.71 [facility] Left arm BP 121 mmHg [facility] Left Dist Outflow EDV 6.5 cm/s [facility] Left Dist Outflow PSV 51.5 cm/s [facility] Left dorsalis pedis BP 67 mmHg [facility] Left Graft 1 Proximal Popliteal Stent [facility] Left Inflow Artery EDV 8.5 cm/s [facility] Left Inflow Artery PSV 46.5 cm/s [facility] Left Mid Outflow EDV 6.5 cm/s [facility] Left Mid Outflow PSV 58.1 cm/s [facility] Left Outflow Vessel EDV 9.8 cm/s [facility] Left Outflow Vessel PSV 89.9 cm/s [facility] Left posterior tibial 94 mmHg [facility] Left Prox Outflow EDV 6.5 cm/s [facility] Left Prox Outflow PSV 51.5 cm/s [facility] Right MICHELLE 0.96 [facility] Right arm BP 133 mmHg [facility] Right YARITZA dist PSV 53.6 cm/s [facility] Right 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 dist 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 144.6 cm/s [facility] Right 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 mid AP diameter 0.92 cm [facility] Right 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 mid TR diameter 0.89 cm [facility] Right 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 prox PSV 133.7 cm/s [facility] Right Dist Outflow EDV 0 cm/s [facility] Right Dist Outflow PSV 45.3 cm/s [facility] Right dorsalis pedis BP 107 mmHg [facility] Right EIA dist PSV 144.6 cm/s [facility] Right Graft 1 Distal SFA Stent [facility] Right Inflow Artery EDV 4.6 cm/s [facility] Right Inflow Artery PSV 100.7 cm/s [facility] Right Mid Outflow EDV 2.3 cm/s [facility] Right Mid Outflow PSV 66.2 cm/s [facility] Right Outflow Vessel EDV 2.3 cm/s [facility] Right Outflow Vessel PSV 56.4 cm/s [facility] Right PFA AP diameter 0.59 cm [facility] Right PFA TR diameter 0.73 cm [facility] Right Pop A dist PSV 157.6 cm/s [facility] Right Pop A mid PSV 89.9 cm/s [facility] Right popliteal artery mid AP diameter 0.52 cm [facility] Right popliteal artery mid TR diameter 0.6 cm [facility] Right posterior tibial 128 mmHg [facility] Right Prox Outflow EDV 0 cm/s [facility] Right Prox Outflow PSV 68.6 cm/s [facility] Right EDGE SANDER dist PSV 48.1 cm/s [facility] Right SFA dist PSV 100.7 cm/s [facility] Right SFA distal AP diameter 0.71 cm [facility] Right SFA distal TR diameter 0.71 cm [facility] Right SFA mid AP diameter 0.68 cm [facility] Right SFA mid PSV 261 cm/s [facility] Right SFA mid TR diameter 0.69 cm [facility] Right SFA prox PSV 81.7 cm/s [facility] Right SFA proximal AP diameter 0.55 cm [facility] Right SFA proximal TR diameter 0.61 cm [facility] Stents in SFA and popliteal artery are [...] CPACS Progress Noteon 12-05-2024 Progress Note Normal [facility] 36on 11-23-2024 36 Normal [facility] 36 Normal [facility] 36 Normal [facility] [id number] 11-22-2024 [id number] Normal [facility] Anesthesia Noteon 11-22-2024 Anesthesia Note Normal [facility] No Panel Informationon 11-22 There is no interpretation needed for this exam. IMAGING Nursing Noteon 11-22-2024 Nursing Note Patient arrived on unit. Name and date verified. Attached to monitors. Vital signs stable. Normal [facility] Op Noteon 11-22-2024 Op Note Normal [facility] Progress Noteon 11-22-2024 Progress Note POA called to bedsid e and discharge instructions reviewed. Groin site remains intact and LE distal pulses unchanged via assessment with doppler. 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 Made aware of patient's orders to lay flat until 1325. Daughter in law stated that she will call care facility later to make arrangements for transportation back. Normal [facility] Anesthesia Noteon 11-21-2024 Anesthesia Note Normal [facility] Basic Metabolic Profile (BMP )on 11-15-2024 BUN/CRE 18.3 RATIO Normal 10-20 [facility] Comment on above: Order Comment: 104-1 Performed By: #### L 300.3900 #### [facility] [address] [place], [address] Calcium [Mass/Vol] 9.0 mg/dL Normal 7.6-11.0 [facility] Comment on above: Order Comment: 104-1 Performed By: #### L 300.3900 #### [facility] [address] [place], [address] Chloride [Moles/Vol] 108 mmol/L Normal 98-108 [facility] Comment on above: Order Comment: 104-1 Performed By: #### L 300.3900 #### [facility] [address] [place], [address] CO2 [Moles/Vol] 22.1 mmol/L Normal 21.0-32.0 [facility] Comment on above: Order Comment: 104-1 Performed By: #### L 300.3900 #### [facility] [address] [place], [address] Creatinine [Mass/Vol] 1.03 mg/dL Normal 0.70-1.20 [facility] Comment on above: Order Comment: 104-1 Performed By: #### L 300.3900 #### [facility] [address] [place], [address] GAP 9 Normal 5-15 [facility] Comment on above: Order Comment: 104-1 Performed By: #### L 300.3900 #### [facility] [address] [place], [address] GFR/1.73 sq M.predicted among non-blacks MDRD (S/P/Bld) [Vol rate/Area] 53 mL/min/{1.73_m2} Low >60 [facility] Comment on above: Order Comment: 104- Result Comment: mL/m in/1.73m2 CKD-EPI Creatinine Equation (2020) Performed By: #### L 300.3900 #### [facility] [address] [place], [address] Glucose [Mass/Vol] 91 mg/dL Normal 70-99 [facility] Comment on above: Order Comment: 104-1 Performed By: #### L 300.3900 #### [facility] [address] [place], [address] Potassium [Moles/Vol] 4.8 mmol/L Normal 3.3-5.1 [facility] Comment on above: Order Comment: 104-1 Performed By: #### L 300.3900 #### [facility] [address] [place], [address] Sodium [Moles/Vol] 138 mmol/L Normal 133-145 [facility] Comment on above: Order Comment: 104-1 Performed By: #### L 300.3900 #### [facility] [address] [place], [address] Urea nitrogen [Mass/Vol] 19 mg/dL Normal 4-19 [facility] Comment on above: Order Comment: 104-1 Performed By: #### L 300.3900 #### [facility] [address] [place], [address] CBC W/Diff, Automatedon 05-0 -2024 Absolute Lymph 1.77 X10 3/uL Normal 0.83-4.51 [facility] Comment on above: Order Comment: 104-1 Performed By: #### L 300.3900 #### [facility] [address] [place], [address] Absolute Neut 3.2 X10 3/uL Normal 2.0-7.7 [facility] Comment on above: Order Comment: 104-1 Performed By: #### L 300.3900 #### [facility] [address] [place], [address] Basophils/100 WBC (Bld) 0.7 % Normal 0-1 [facility] Comment on above: Order Comment: 104-1 Performed By: #### L 300.3900 #### [facility] [address] [place], [address] Eosinophils/100 WBC (Bld) 2.9 % Normal 0-5 [facility] Comment on above: Order Comment: 104-1 Performed By: #### L 300.3900 #### [facility] [address] [place], [address] Erythrocyte distribution width (RBC) [Ratio] 18.8 % High 11.6-14.6 [facility] Comment on above: Order Comment: 104-1 Performed By: #### L 300.3900 #### [facility] [address] [place], [address] Hematocrit (Bld) [Volume fraction] 30.9 % Low 37-47 [facility] Comment on above: Order Comment: 104-1 Performed By: #### L 300.3900 #### [facility] [address] [place], [address] Hemoglobin (Bld) [Mass/Vol] 9.8 g/dL Low 12.0-15.0 [facility] Comment on above: Order Comment: 104-1 Performed By: #### L 300.3900 #### [facility] [address] [place], [address] IG% 0.200 Normal 0.0-0.9 [facility] Comment on above: Order Comment: 104-1 Result Comment: IG% - Immature Granulocytes (promyelocytes, myelocytes and metamyelocytes) > 1% indicates that a LEFT SHIFT is Present. Performed By: #### L 300.3900 #### [facility] [address] [place], [address] Lymphocytes/100 WBC (Bld) 30.3 % Normal 19-41 [facility] Comment on above: Order Comment: 104-1 Performed By: #### L 300.3900 #### [facility] [address] [place], [address] MCH (RBC) [Entitic mass] 28.4 pg Normal 27.0-32.0 [facility] Comment on above: Order Comment: 104-1 Performed By: #### L 300.3900 #### [facility] [address] [place], [address] MCHC (RBC) [Mass/Vol] 31.7 g/dL Low 32-36 [facility] Comment on above: Order Comment: 104-1 Performed By: #### L 300.3900 #### [facility] [address] [place], [address] MCV (RBC) [Entitic vol] 89.6 fL Normal 81-99 [facility] Comment on above: Order Comment: 104-1 Performed By: #### L 300.3900 #### [facility] [address] [place], [address] Monocytes/100 WBC (Bld) 11.3 % High 0-10 [facility] Comment on above: Order Comment: 104-1 Performed By: #### L 300.3900 #### [facility] [address] [place], [address] Neutrophils/100 WBC (Bld) 54.6 % Normal 47-70 [facility] Comment on above: Order Comment: 104-1 Performed By: #### L 300.3900 #### [facility] [address] [place], [address] Nucleated RBC (Bld) [#/Vol] 0 10*3/uL Normal 0-5 [facility] Comment on above: Order Comment: 104-1 Performed By: #### L 300.3900 #### [facility] [address] [place], [address] Platelet mean volume (Bld) [Entitic vol] 10.2 fL Normal 6.2-12.0 [facility] Comment on above: Order Comment: 104-1 Performed By: #### L 300.3900 #### [facility] [address] [place], [address] Platelets (Bld) [#/Vol] 303 10*3/uL Normal 150-450 [facility] Comment on above: Order Comment: 104-1 Performed By: #### L 300.3900 #### [facility] [address] [place], [address] RBC (Bld) [#/Vol] 3.45 10*6/uL Low 4.2-5.4 [facility] Comment on above: Order Comment: 104-1 Performed By: #### L 300.3900 #### [facility] [address] [place], [address] RDW SD 61.8 fl High 35.1-43.9 [facility] Comment on above: Order Comment: 104-1 Performed By: #### L 300.3900 #### [facility] [address] [place], [address] WBC (Bld) [#/Vol] 5.8 10*3/uL Normal 4.4-11.0 [facility] Comment on above: Order Comment: 104-1 Performed By: #### L 300.3900 #### [facility] [address] [place], [address] 36on 11-14-2024 36 Normal [facility] 36on 11-08-2024 36 Fidel called to state that she spoke with Mel and she would like to proceed with angio. Normal [facility] Progress Noteon 11-05-2024 Progress Note Normal [facility] Anion gap in Serum or Plasma Ordered By: Megan Montoya on 10-08-2024 Anion gap [Moles/Vol] 12 mmol/L - [facility] BUN/creatinine ratioOrdered By: Megan Montoya on 10-08-2024 Urea nitrogen/Creatinine [Mass ratio] 16.5 mg/mg - [facility] Basic Metabolic Profile (BMP )on 10-08-2024 BUN/CRE 16.5 RATIO Normal - [facility] Comment on above: Order Comment: 104.1 Performed By: #### L 100.0500, L500.2500 #### [facility] [address] [place], [address] Calcium [Mass/Vol] 9.0 mg/dL Normal 7.6-11.0 [facility] Comment on above: Order Comment: 104.1 Performed By: #### L 100.0500, L500.2500 #### [facility] [address] [place], [address] Chloride [Moles/Vol] 106 mmol/L Normal 98-108 [facility] Comment on above: Order Comment: 104.1 Performed By: #### L 100.0500, L500.2500 #### [facility] [address] [place], [address] CO2 [Moles/Vol] 20.0 mmol/L Low 21.0-32.0 [facility] Comment on above: Order Comment: 104.1 Performed By: #### L 100.0500, L500.2500 #### [facility] [address] [place], [address] Creatinine [Mass/Vol] 1.05 mg/dL Normal 0.70-1.20 [facility] Comment on above: Order Comment: 104.1 Performed By: #### L 100.0500, L500.2500 #### [facility] [address] [place], [address] GAP 12 Normal 5-15 [facility] Comment on above: Order Comment: 104.1 Performed By: #### L 100.0500, L500.2500 #### [facility] [address] [place], [address] GFR/1.73 sq M.predicted among non-blacks MDRD (S/P/Bld) [Vol rate/Area] 52 mL/min/{1.73_m2} Low >60 [facility] Comment on above: Order Comment: 104.1 Result Comment: mL/m in/1.73m2 CKD-EPI Creatinine Equation (2020) Performed By: #### L 100.0500, L500.2500 #### [facility] [address] [place], [address] Glucose [Mass/Vol] 98 mg/dL Normal 70-99 [facility] Comment on above: Order Comment: 104.1 Performed By: #### L 100.0500, L500.2500 #### [facility] [address] [place], [address] Potassium [Moles/Vol] 4.3 mmol/L Normal 3.3-5.1 [facility] Comment on above: Order Comment: 104.1 Result Comment: Hemo lysis present, Results??could be affected. ?? Performed By: #### L 100.0500, L500.2500 #### [facility] [address] [place], [address] Sodium [Moles/Vol] 137 mmol/L Normal 133-145 [facility] Comment on above: Order Comment: 104.1 Performed By: #### L 100.0500, L500.2500 #### [facility] [address] [place], [address] Urea nitrogen [Mass/Vol] 17 mg/dL Normal 4-19 [facility] Comment on above: Order Comment: 104.1 Performed By: #### L 100.0500, L500.2500 #### [facility] [address] [place], [address] CBC-Complete Blood Cnt No Di ffon 10-08-2024 Erythrocyte distribution width (RBC) [Ratio] 17.5 % High 11.6-14.6 [facility] Comment on above: Order Comment: 104.1 Performed By: #### L 100.0500, L500.2500 #### [facility] [address] [place], [address] Hematocrit (Bld) [Volume fraction] 30.4 % Low 37-47 [facility] Comment on above: Order Comment: 104.1 Performed By: #### L 100.0500, L500.2500 #### [facility] [address] [place], [address] Hemoglobin (Bld) [Mass/Vol] 9.6 g/dL Low 12.0-15.0 [facility] Comment on above: Order Comment: 104.1 Performed By: #### L 100.0500, L500.2500 #### [facility] [address] [place], [address] MCH (RBC) [Entitic mass] 27.4 pg Normal 27.0-32.0 [facility] Comment on above: Order Comment: 104.1 Performed By: #### L 100.0500, L500.2500 #### [facility] [address] [place], [address] MCHC (RBC) [Mass/Vol] 31.6 g/dL Low 32-36 [facility] Comment on above: Order Comment: 104.1 Performed By: #### L 100.0500, L500.2500 #### [facility] [address] [place], [address] MCV (RBC) [Entitic vol] 86.9 fL Normal 81-99 [facility] Comment on above: Order Comment: 104.1 Performed By: #### L 100.0500, L500.2500 #### [facility] [address] [place], [address] Platelet mean volume (Bld) [Entitic vol] 10.3 fL Normal 6.2-12.0 [facility] Comment on above: Order Comment: 104.1 Performed By: #### L 100.0500, L500.2500 #### [facility] [address] [place], [address] Platelets (Bld) [#/Vol] 408 10*3/uL Normal 150-450 [facility] Comment on above: Order Comment: 104.1 Performed By: #### L 100.0500, L500.2500 #### [facility] [address] [place], [address] RBC (Bld) [#/Vol] 3.50 10*6/uL Low 4.2-5.4 [facility] Comment on above: Order Comment: 104.1 Performed By: #### L 100.0500, L500.2500 #### [facility] [address] [place], [address] RDW SD 56.2 fl High 35.1-43.9 [facility] Comment on above: Order Comment: 104.1 Performed By: #### L 100.0500, L500.2500 #### [facility] [address] [place], [address] WBC (Bld) [#/Vol] 6.4 10*3/uL Normal 4.4-11.0 [facility] Comment on above: Order Comment: 104.1 Performed By: #### L 100.0500, L500.2500 #### [facility] [address] [place], [address] Carbon dioxide, total [Moles /volume] in Central venous bloodOrdered By: Megan Montoya on 10-08-2024 CO2 [Moles/Vol] 20.0 mmol/L Low 21.0-32.0 [facility] Chloride assayOrdered By: Johnathan Guzman on 10-08-2024 Chloride [Moles/Vol] 106 mmol/L 98-108 [facility] Erythrocyte distribution wid th ratioOrdered By: Megan Montoya on 10-08-2024 Erythrocyte distribution width (RBC) [Ratio] 17.5 % High 11.6-14.6 [facility] Erythrocyte distribution wid th standard deviationOrdered By: Megan Montoya on 10-08-2024 Erythrocyte distribution width (RBC) [Entitic vol] 56.2 fL High 35.1-43.9 [facility] GFR/1.73 sq M.predicted gricelda g non-blacks MDRD (S/P/Bld) [Vol rate/Area]Ordered By: Megan Montoya on 10-08-2024 Estimated GFR (MDRD) Non-Af Amer 52 Low >60 [facility] Comment on above: mL/min/1.73m2 CKD-EP I Creatinine Equation (2020) Hematocrit Auto (Bld) [Volum e fraction]Ordered By: Megan Montoya on 10-08-2024 Hematocrit (Bld) [Volume fraction] 30.4 % Low 37-47 [facility] Hemoglobin measurementOrdere d By: Megan Montoya on 10-08-2024 Hemoglobin (Bld) [Mass/Vol] 9.6 g/dL Low 12.0-15.0 [facility] MCV (mean corpuscular volume ) determinationOrdered By: Megan Montoya on 10-08-2024 MCV (RBC) [Entitic vol] 86.9 fL 81-99 [facility] Mean corpuscular hemoglobin (MCH) determinationOrdered By: Megan Montoya on 10-08-2024 MCH (RBC) [Entitic mass] 27.4 pg 27.0-32.0 [facility] Mean corpuscular hemoglobin concentration (MCHC) determinationOrdered By: Megan Montoya on 10-08-2024 MCHC (RBC) [Mass/Vol] 31.6 g/dL Low 32-36 [facility] Mean platelet volume determi nationOrdered By: Megan Montoya on 10-08-2024 Platelet mean volume (Bld) [Entitic vol] 10.3 fL 6.2-12.0 [facility] Platelet countOrdered By: Johnathan Guzman on 10-08-2024 Platelets (Bld) [#/Vol] 408 10*3/uL 150-450 [facility] Potassium (Unsp spec) [Mass/ Vol]Ordered By: Megan Montoya on 10-08-2024 Potassium [Moles/Vol] 4.3 mmol/L 3.3-5.1 [facility] Comment on above: Hemolysis present, R esults could be affected. RBC Auto (Bld) [#/Vol]Ordere d By: Megan Montoya on 10-08-2024 RBC (Bld) [#/Vol] 3.50 10*6/uL Low 4.2-5.4 [facility] Serum creatinine measurement (mass/volume)Ordered By: Megan Montoya on 10-08-2024 Creatinine [Mass/Vol] 1.05 mg/dL 0.70-1.20 [facility] Serum glucose measurement (m ass/volume)Ordered By: Megan Montoya on 10-08-2024 Glucose [Mass/Vol] 98 mg/dL 70-99 [facility] Serum or plasma calcium reyna urement (mass/volume)Ordered By: Megan Montoya on 10-08-2024 Calcium [Mass/Vol] 9.0 mg/dL 7.6-11.0 [facility] Serum or plasma urea nitroge n measurement (mass/volume)Ordered By: Megan Montoya on 10-08-2024 Urea nitrogen [Mass/Vol] 17 mg/dL 4-19 [facility] Sodium levelOrdered By: Juan C Montoya on 10-08-2024 Sodium [Moles/Vol] 137 mmol/L 133-145 [facility] White blood cell (WBC) count Ordered By: Megan Montoya on 10-08-2024 WBC (Bld) [#/Vol] 6.4 10*3/uL 4.4-11.0 [facility] BSCAN OD (RIGHT EYE)on 10-01 [facility] Radiology Study observation (narrative) [facility] BUN/creatinine ratioOrdered By: Megan Montoya on 09-17-2024 Urea nitrogen/Creatinine [Mass ratio] 15.7 mg/mg 10-20 [facility] Basic Metabolic Profile (BMP )on 09-17-2024 Anion gap [Moles/Vol] 10 mmol/L Normal 5-15 [facility] Comment on above: Order Comment: 104.1 Performed By: #### L 9200.0000 #### [facility] [address] [place], [address] BUN/CRE 15.7 RATIO Normal 10-20 [facility] Comment on above: Order Comment: 104.1 Performed By: #### L 9200.0000 #### [facility] [address] [place], [address] Calcium [Mass/Vol] 9.0 mg/dL Normal 7.6-11.0 [facility] Comment on above: Order Comment: 104.1 Performed By: #### L 9200.0000 #### [facility] [address] [place], [address] Chloride [Moles/Vol] 108 mmol/L Normal 96-108 [facility] Comment on above: Order Comment: 104.1 Performed By: #### L 9200.0000 #### [facility] [address] [place], [address] CO2 [Moles/Vol] 21.6 mmol/L Low 22.0-29.0 [facility] Comment on above: Order Comment: 104.1 Performed By: #### L 9200.0000 #### [facility] [address] [place], [address] Creatinine [Mass/Vol] 1.03 mg/dL Normal 0.70-1.20 [facility] Comment on above: Order Comment: 104.1 Performed By: #### L 9200.0000 #### [facility] [address] [place], [address] GFR/1.73 sq M.predicted among non-blacks MDRD (S/P/Bld) [Vol rate/Area] 54 mL/min/{1.73_m2} Low >60 [facility] Comment on above: Order Comment: 104.1 Result Comment: mL/m in/1.73m2 CKD-EPI Creatinine Equation (2020) Performed By: #### L 9200.0000 #### [facility] [address] [place], [address] Glucose [Mass/Vol] 90 mg/dL Normal 70-99 [facility] Comment on above: Order Comment: 104.1 Performed By: #### L 9200.0000 #### [facility] [address] [place], [address] Potassium [Moles/Vol] 4.5 mmol/L Normal 3.3-5.1 [facility] Comment on above: Order Comment: 104.1 Performed By: #### L 9200.0000 #### [facility] [address] [place], [address] Sodium [Moles/Vol] 140 mmol/L Normal 133-145 [facility] Comment on above: Order Comment: 104.1 Performed By: #### L 9200.0000 #### [facility] [address] [place], [address] Urea nitrogen [Mass/Vol] 16 mg/dL Normal 4-19 [facility] Comment on above: Order Comment: 104.1 Performed By: #### L 9200.0000 #### [facility] [address] [place], [address] Carbon dioxide measurementOr dered By: Megan Montoya on 09-17-2024 CO2 [Moles/Vol] 21.6 mmol/L Low 22.0-29.0 [facility] Chloride measurementOrdered By: Megan Montoya on 09-17-2024 Chloride [Moles/Vol] 108 mmol/L 96-108 [facility] GFR/1.73 sq M.predicted gricelda g non-blacks MDRD (S/P/Bld) [Vol rate/Area]Ordered By: Megan Montoya on 09-17-2024 Estimated GFR (MDRD) Non-Af Amer 54 Low >60 [facility] Comment on above: mL/min/1.73m2 CKD-EP I Creatinine Equation (2020) Serum creatinine measurement (mass/volume)Ordered By: Megan Montoya on 09-17-2024 Creatinine [Mass/Vol] 1.03 mg/dL 0.70-1.20 [facility] Serum glucose measurement (m ass/volume)Ordered By: Megan Montoya on 09-17-2024 Glucose [Mass/Vol] 90 mg/dL 70-99 [facility] Serum or plasma anion gap de termination (moles/volume)Ordered By: Megan Montoya on 09-17-2024 Anion gap [Moles/Vol] 10 mmol/L 5-15 [facility] Serum or plasma calcium reyna urement (mass/volume)Ordered By: Megan Montoya on 09-17-2024 Calcium [Mass/Vol] 9.0 mg/dL 7.6-11.0 [facility] Serum or plasma potassium me asurementOrdered By: Megan Montoya on 09-17-2024 Potassium [Moles/Vol] 4.5 mmol/L 3.3-5.1 [facility] Serum or plasma sodium measu rement (moles/volume)Ordered By: Megan Montoya on 09-17-2024 Sodium [Moles/Vol] 140 mmol/L 133-145 [facility] Serum or plasma urea nitroge n measurement (mass/volume)Ordered By: Megan Montoya on 09-17-2024 Urea nitrogen [Mass/Vol] 16 mg/dL 4-19 [facility] Basic Metabolic Profile (BMP )on 09-10-2024 BUN/CRE 17.9 RATIO Normal 10-20 [facility] Comment on above: Order Comment: 104.1 Performed By: #### L 100.0500, L500.2500 #### [facility] [address] [place], [address] CA,Total 9.0 mg/dL Normal 8.5-10.1 [facility] Comment on above: Order Comment: 104.1 Performed By: #### L 100.0500, L500.2500 #### [facility] [address] [place], [address] Chloride [Moles/Vol] 108 mmol/L High 98-107 [facility] Comment on above: Order Comment: 104.1 Performed By: #### L 100.0500, L500.2500 #### [facility] [address] [place], [address] CO2 [Moles/Vol] 24.0 mmol/L Normal 21.0-32.0 [facility] Comment on above: Order Comment: 104.1 Performed By: #### L 100.0500, L500.2500 #### [facility] [address] [place], [address] Creatinine [Mass/Vol] 1.23 mg/dL High 0.55-1.02 [facility] Comment on above: Order Comment: 104.1 Result Comment: The validity of the calculated GFR GFRAA in patients over 70 years has not been determined. Clinical correlation is essential. Performed By: #### L 100.0500, L500.2500 #### [facility] [address] [place], [address] EST GFR - AA 53 mL/min Low >60 [facility] Comment on above: Order Comment: 104.1 Result Comment: Afri can Cambodian GFR Calc Performed By: #### L 100.0500, L500.2500 #### [facility] [address] [place], [address] GAP 5 Normal 5-15 [facility] Comment on above: Order Comment: 104.1 Performed By: #### L 100.0500, L500.2500 #### [facility] [address] [place], [address] GFR/1.73 sq M.predicted among non-blacks MDRD (S/P/Bld) [Vol rate/Area] 44 mL/min/{1.73_m2} Low >60 [facility] Comment on above: Order Comment: 104.1 Result Comment: Non- GFR Calc Performed By: #### L 100.0500, L500.2500 #### [facility] [address] [place], [address] Glucose [Mass/Vol] 98 mg/dL Normal 74-106 [facility] Comment on above: Order Comment: 104.1 Performed By: #### L 100.0500, L500.2500 #### [facility] [address] [place], [address] Potassium [Moles/Vol] 4.5 mmol/L Normal 3.5-5.1 [facility] Comment on above: Order Comment: 104.1 Performed By: #### L 100.0500, L500.2500 #### [facility] [address] [place], [address] Sodium [Moles/Vol] 137 mmol/L Normal 136-145 [facility] Comment on above: Order Comment: 104.1 Performed By: #### L 100.0500, L500.2500 #### [facility] [address] [place], [address] Urea nitrogen [Mass/Vol] 22 mg/dL High 7-18 [facility] Comment on above: Order Comment: 104.1 Performed By: #### L 100.0500, L500.2500 #### [facility] [address] [place], [address] Blood urea nitrogen (BUN)/cr eatinine ratioOrdered By: Megan Montoya on 09-10-2024 Urea nitrogen/Creatinine [Mass ratio] 17.9 mg/mg 10- [facility] CBC-Complete Blood Cnt No Di ffon 09-10-2024 Erythrocyte distribution width (RBC) [Ratio] 17.8 % High 11.6-14.6 [facility] Comment on above: Order Comment: 104.1 Performed By: #### L 100.0500, L500.2500 #### [facility] [address] [place], [address] Hematocrit (Bld) [Volume fraction] 31.9 % Low 37-47 [facility] Comment on above: Order Comment: 104.1 Performed By: #### L 100.0500, L500.2500 #### [facility] [address] [place], [address] Hemoglobin (Bld) [Mass/Vol] 9.7 g/dL Low 12.0-15.0 [facility] Comment on above: Order Comment: 104.1 Performed By: #### L 100.0500, L500.2500 #### [facility] [address] [place], [address] MCH (RBC) [Entitic mass] 26.1 pg Low 27.0-32.0 [facility] Comment on above: Order Comment: 104.1 Performed By: #### L 100.0500, L500.2500 #### [facility] [address] [place], [address] MCHC (RBC) [Mass/Vol] 30.4 g/dL Low 32-36 [facility] Comment on above: Order Comment: 104.1 Performed By: #### L 100.0500, L500.2500 #### [facility] [address] [place], [address] MCV (RBC) [Entitic vol] 85.8 fL Normal 81-99 [facility] Comment on above: Order Comment: 104.1 Performed By: #### L 100.0500, L500.2500 #### [facility] [address] [place], [address] Platelet mean volume (Bld) [Entitic vol] 9.5 fL Normal 6.2-12.0 [facility] Comment on above: Order Comment: 104.1 Performed By: #### L 100.0500, L500.2500 #### [facility] [address] [place], [address] Platelets (Bld) [#/Vol] 485 10*3/uL High 150-450 [facility] Comment on above: Order Comment: 104.1 Performed By: #### L 100.0500, L500.2500 #### [facility] [address] [place], [address] RBC (Bld) [#/Vol] 3.72 10*6/uL Low 4.2-5.4 [facility] Comment on above: Order Comment: 104.1 Performed By: #### L 100.0500, L500.2500 #### [facility] [address] [place], [address] RDW SD 55.2 fl High 35.1-43.9 [facility] Comment on above: Order Comment: 104.1 Performed By: #### L 100.0500, L500.2500 #### [facility] [address] [place], [address] WBC (Bld) [#/Vol] 7.7 10*3/uL Normal 4.4-11.0 [facility] Comment on above: Order Comment: 104.1 Performed By: #### L 100.0500, L500.2500 #### [facility] [address] [place], [address] Carbon dioxide measurementOr dered By: Megan Montoya on 09-10-2024 CO2 [Moles/Vol] 24.0 mmol/L 21.0-32.0 [facility] Chloride measurementOrdered By: Megan Montoya on 09-10-2024 Chloride [Moles/Vol] 108 mmol/L High 98-107 [facility] Erythrocyte distribution wid th ratioOrdered By: Megan Montoya on 09-10-2024 Erythrocyte distribution width (RBC) [Ratio] 17.8 % High 11.6-14.6 [facility] Erythrocyte distribution wid th standard deviationOrdered By: Megan Montoya on 09-10-2024 Erythrocyte distribution width (RBC) [Entitic vol] 55.2 fL High 35.1-43.9 [facility] Estimated glomerular filtrat ion rate (GFR) AmericanOrdered By: Megan Montoya on 09-10-2024 Estimated GFR (MDRD) Amer 53 mL/min Low >60 [facility] Comment on above: GFR Calc Glomerular filtration rate ( GFR) estimationOrdered By: Megan Montoya on 09-10-2024 Estimated GFR (MDRD) Non-Af Amer 44 mL/min Low >60 [facility] Comment on above: Non- GFR Calc Glucose measurementOrdered B y: Megan Montoya on 09-10-2024 Glucose [Mass/Vol] 98 mg/dL 74-106 [facility] Hematocrit Auto (Bld) [Volum e fraction]Ordered By: Megan Montoya on 09-10-2024 Hematocrit (Bld) [Volume fraction] 31.9 % Low 37-47 [facility] Hemoglobin measurementOrdere d By: Megan Montoya on 09-10-2024 Hemoglobin (Bld) [Mass/Vol] 9.7 g/dL Low 12.0-15.0 [facility] MCV (mean corpuscular volume ) determinationOrdered By: Megan Montoya on 09-10-2024 MCV (RBC) [Entitic vol] 85.8 fL 81-99 [facility] Mean corpuscular hemoglobin (MCH) determinationOrdered By: Megan Montoya on 09-10-2024 MCH (RBC) [Entitic mass] 26.1 pg Low 27.0-32.0 [facility] Mean corpuscular hemoglobin concentration (MCHC) determinationOrdered By: Megan Montoya on 09-10-2024 MCHC (RBC) [Mass/Vol] 30.4 g/dL Low 32-36 [facility] Mean platelet volume determi nationOrdered By: Megan Montoya on 09-10-2024 Platelet mean volume (Bld) [Entitic vol] 9.5 fL 6.2-12.0 [facility] Platelet countOrdered By: Johnathan Guzman on 09-10-2024 Platelets (Bld) [#/Vol] 485 10*3/uL High 150-450 [facility] Potassium measurementOrdered By: Megan Montoya on 09-10-2024 Potassium [Moles/Vol] 4.5 mmol/L 3.5-5.1 [facility] RBC Auto (Bld) [#/Vol]Ordere d By: Megan Montoya on 09-10-2024 RBC (Bld) [#/Vol] 3.72 10*6/uL Low 4.2-5.4 [facility] Serum anion gap measurementO rdered By: Megan Montoya on 09-10-2024 Anion gap [Moles/Vol] 5 mmol/L 5-15 [facility] Serum or plasma calcium reyna urement (mass/volume)Ordered By: Megan Montoya on 09-10-2024 Calcium [Mass/Vol] 9.0 mg/dL 8.5-10.1 [facility] Serum or plasma creatinine m easurement (mass/volume)Ordered By: Megan Montoya on 09-10-2024 Creatinine [Mass/Vol] 1.23 mg/dL High 0.55-1.02 [facility] Comment on above: The validity of the calculated GFR & GFRAA in patients over 70 years has not been determined. Clinical correlation is essential. Serum or plasma urea nitroge n measurement (mass/volume)Ordered By: Megan Montoya on 09-10-2024 Urea nitrogen [Mass/Vol] 22 mg/dL High 7-18 [facility] Sodium levelOrdered By: Juan C Montoya on 09-10-2024 Sodium [Moles/Vol] 137 mmol/L 136-145 [facility] White blood cell (WBC) count Ordered By: Megan Montoya on 09-10-2024 WBC (Bld) [#/Vol] 7.7 10*3/uL 4.4-11.0 [facility] Urine Cultureon 09-06-2024 URC UNKNOWN METHOD OF COLLECTION Proteus mirabilis Ilion Count 50,000-80,000 Klebsiella pneumoniae sp pneum Klebsiella [...] TMP SMX Islt AGATA <=20 S Normal [facility] Comment on above: Performed By: #### L 9200.0000 #### [facility] [address] [facility] [place], [place], [id number] Urinalysis, Completeon 09-04 BACTERIA 4+ /hpf Normal None Seen [facility] Comment on above: Order Comment: UNKNO WN METHOD OF COLLECTIONCLEAN CATCH Performed By: #### L 9200.0000 #### [facility] [address] [place], [place], [id number] EPI,SQUAMOUS 10-25 SEEN Normal 5-10 [facility] Comment on above: Order Comment: UNKNO WN METHOD OF COLLECTIONCLEAN CATCH Performed By: #### L 9200.0000 #### [facility] [address] [place], [address] Mucus Ql (Urine sed) 1+ /hpf Normal [facility] Comment on above: Order Comment: UNKNO WN METHOD OF COLLECTIONCLEAN CATCH Performed By: #### L 9200.0000 #### [facility] [address] [place], [address] RBC 5-10 SEEN Normal 0-5 [facility] Comment on above: Order Comment: UNKNO WN METHOD OF COLLECTIONCLEAN CATCH Performed By: #### L 9200.0000 #### [facility] [address] [place], [address] WBC 50-100 SEEN Normal 0-5 [facility] Comment on above: Order Comment: UNKNO WN METHOD OF COLLECTIONCLEAN CATCH Performed By: #### L 9200.0000 #### [facility] [address] [place], [address] Basic Metabolic Profile (BMP )on 09-03-2024 BUN/CRE 20.7 RATIO High 10-20 [facility] Comment on above: Order Comment: 104-1 Performed By: #### L 300.3900 #### [facility] [address] [place], [address] CA,Total 9.4 mg/dL Normal 8.5-10.1 [facility] Comment on above: Order Comment: 104-1 Performed By: #### L 300.3900 #### [facility] [address] [place], [address] Chloride [Moles/Vol] 109 mmol/L High 98-107 [facility] Comment on above: Order Comment: 104-1 Performed By: #### L 300.3900 #### [facility] [address] [place], [address] CO2 [Moles/Vol] 21.0 mmol/L Normal 21.0-32.0 [facility] Comment on above: Order Comment: 104- Performed By: #### L 300.3900 #### [facility] [address] [place], [address] Creatinine [Mass/Vol] 0.92 mg/dL Normal 0.55-1.02 [facility] Comment on above: Order Comment: 104- Result Comment: The validity of the calculated GFR GFRAA in patients over 70 years has not been determined. Clinical correlation is essential. Performed By: #### L 300.3900 #### [facility] [address] [place], [address] EST GFR - AA 75 mL/min Normal >60 [facility] Comment on above: Order Comment: - Result Comment: Afri can Camb[place]ian GFR Calc Performed By: #### L 300.3900 #### [facility] [address] [place], [address] GAP 9 Normal 5-15 [facility] Comment on above: Order Comment: - Performed By: #### L 300.3900 #### [facility] [address] [place], [address] GFR/1.73 sq M.predicted among non-blacks MDRD (S/P/Bld) [Vol rate/Area] 62 mL/min/{1.73_m2} Normal >60 [facility] Comment on above: Order Comment: - Result Comment: Non- GFR Calc Performed By: #### L 300.3900 #### [facility] [address] [place], [address] Glucose [Mass/Vol] 115 mg/dL High 74-106 [facility] Comment on above: Order Comment: 104- Result Comment: Fast ing Glucose result from 100 to 125 mg/dL suggests IMPAIRED HOMEOSTASIS per A.D.A. criteria. Performed By: #### L 300.3900 #### [facility] [address] [place], [address] Potassium [Moles/Vol] 4.4 mmol/L Normal 3.5-5.1 [facility] Comment on above: Order Comment: 104-1 Performed By: #### L 300.3900 #### [facility] [address] [place], [address] Sodium [Moles/Vol] 139 mmol/L Normal 136-145 [facility] Comment on above: Order Comment: 104-1 Performed By: #### L 300.3900 #### [facility] [address] [place], [address] Urea nitrogen [Mass/Vol] 19 mg/dL High 7-18 [facility] Comment on above: Order Comment: 104-1 Performed By: #### L 300.3900 #### [facility] [address] [place], [address] Bilirubin Test strip Ql (U)O rdered By: Megan Montoya on 09-03-2024 Bilirubin Ql (U) Negative Negative [facility] Blood urea nitrogen (BUN)/cr eatinine ratioOrdered By: Megan Montoya on 09-03-2024 Urea nitrogen/Creatinine [Mass ratio] 20.7 mg/mg High 10-20 [facility] CBC-Complete Blood Cnt No Di ffon 09-03-2024 Erythrocyte distribution width (RBC) [Ratio] 17.9 % High 11.6-14.6 [facility] Comment on above: Order Comment: 104-1 Performed By: #### L 300.3900 #### [facility] [address] [place], [address] Hematocrit (Bld) [Volume fraction] 30.8 % Low 37-47 [facility] Comment on above: Order Comment: 104-1 Performed By: #### L 300.3900 #### [facility] [address] [place], [address] Hemoglobin (Bld) [Mass/Vol] 9.5 g/dL Low 12.0-15.0 [facility] Comment on above: Order Comment: 104-1 Performed By: #### L 300.3900 #### [facility] [address] [place], [address] MCH (RBC) [Entitic mass] 25.7 pg Low 27.0-32.0 [facility] Comment on above: Order Comment: 104-1 Performed By: #### L 300.3900 #### [facility] [address] [place], [address] MCHC (RBC) [Mass/Vol] 30.8 g/dL Low 32-36 [facility] Comment on above: Order Comment: 104-1 Performed By: #### L 300.3900 #### [facility] [address] [place], [address] MCV (RBC) [Entitic vol] 83.5 fL Normal 81-99 [facility] Comment on above: Order Comment: 104-1 Performed By: #### L 300.3900 #### [facility] [address] [place], [address] Platelet mean volume (Bld) [Entitic vol] 10.2 fL Normal 6.2-12.0 [facility] Comment on above: Order Comment: 104-1 Performed By: #### L 300.3900 #### [facility] [address] [place], [address] Platelets (Bld) [#/Vol] 431 10*3/uL Normal 150-450 [facility] Comment on above: Order Comment: 104-1 Performed By: #### L 300.3900 #### [facility] [address] [place], [address] RBC (Bld) [#/Vol] 3.69 10*6/uL Low 4.2-5.4 [facility] Comment on above: Order Comment: 104-1 Performed By: #### L 300.3900 #### [facility] [address] [place], [address] RDW SD 54.3 fl High 35.1-43.9 [facility] Comment on above: Order Comment: 104-1 Performed By: #### L 300.3900 #### [facility] [address] [place], [address] WBC (Bld) [#/Vol] 10.6 10*3/uL Normal 4.4-11.0 [facility] Comment on above: Order Comment: 104-1 Performed By: #### L 300.3900 #### [facility] [address] [place], [place], [id number] Carbon dioxide measurementOr dered By: Megan Montoya on 09-03-2024 CO2 [Moles/Vol] 21.0 mmol/L 21.0-32.0 [facility] Chloride measurementOrdered By: Megan Montoya on 09-03-2024 Chloride [Moles/Vol] 109 mmol/L High 98-107 [facility] Epithelial cells.squamous LM Ql (Urine sed)Ordered By: Megan Montoya on 09-03-2024 Epithelial cells.squamous LM.HPF (Urine sed) [#/Area] 10 /[HPF] 5-10 [facility] Erythrocyte distribution wid th ratioOrdered By: Megan Montoya on 09-03-2024 Erythrocyte distribution width (RBC) [Ratio] 17.9 % High 11.6-14.6 [facility] Erythrocyte distribution wid th standard deviationOrdered By: Megan Montoya on 09-03-2024 Erythrocyte distribution width (RBC) [Entitic vol] 54.3 fL High 35.1-43.9 [facility] Estimated glomerular filtrat ion rate (GFR) AmericanOrdered By: Megan Montoya on 09-03-2024 Estimated GFR (MDRD) Amer 75 mL/min >60 [facility] Comment on above: GFR Calc Glomerular filtration rate ( GFR) estimationOrdered By: Megan Montoya on 09-03-2024 Estimated GFR (MDRD) Non-Af Amer 62 mL/min >60 [facility] Comment on above: Non- GFR Calc Glucose Ql (U)Ordered By: Johnathan Guzman on 09-03-2024 Urine Glucose (UA) Normal mg/dl Normal [facility] Glucose measurementOrdered B y: Megan Montoya on 09-03-2024 Glucose [Mass/Vol] 115 mg/dL High 74-106 [facility] Comment on above: Fasting Glucose resu lt from 100 to 125 mg/dL suggests IMPAIRED HOMEOSTASIS per A.D.A. criteria. Hematocrit Auto (Bld) [Volum e fraction]Ordered By: Megan Montoya on 09-03-2024 Hematocrit (Bld) [Volume fraction] 30.8 % Low 37-47 [facility] Hemoglobin measurementOrdere d By: Megan Montoya on 09-03-2024 Hemoglobin (Bld) [Mass/Vol] 9.5 g/dL Low 12.0-15.0 [facility] Ketones Test strip Ql (U)Ord ered By: Megan Montoya on 09-03-2024 Ketones Ql (U) 5 mg/dl High Negative [facility] MCV (mean corpuscular volume ) determinationOrdered By: Megan Montoya on 09-03-2024 MCV (RBC) [Entitic vol] 83.5 fL 81-99 [facility] Mean corpuscular hemoglobin (MCH) determinationOrdered By: Megan Montoya on 09-03-2024 MCH (RBC) [Entitic mass] 25.7 pg Low 27.0-32.0 [facility] Mean corpuscular hemoglobin concentration (MCHC) determinationOrdered By: Megan Montoya on 09-03-2024 MCHC (RBC) [Mass/Vol] 30.8 g/dL Low 32-36 [facility] Mean platelet volume determi nationOrdered By: Megan Montoya on 09-03-2024 Platelet mean volume (Bld) [Entitic vol] 10.2 fL 6.2-12.0 [facility] Microscopic analysis of urin e for red blood cells (RBC)Ordered By: Megan Montoya on 09-03-2024 Urine RBC 5-10 SEEN /hpf 0-5 [facility] Mucus LM Ql (Urine sed)Order ed By: Megan Montoya on 09-03-2024 Mucus Ql (Urine sed) 1+ /hpf [facility] Nitrite Test strip Ql (U)Ord ered By: Megan Montoya on 09-03-2024 Nitrite Ql (U) Positive High Negative [facility] Platelet countOrdered By: Johnathan Guzman on 09-03-2024 Platelets (Bld) [#/Vol] 431 10*3/uL 150-450 [facility] Potassium measurementOrdered By: Megan Montoya on 09-03-2024 Potassium [Moles/Vol] 4.4 mmol/L 3.5-5.1 [facility] Protein Test strip Ql (U)Ord ered By: Megan Montoya on 09-03-2024 Protein Ql (U) 100 mg/dl High Negative [facility] RBC Auto (Bld) [#/Vol]Ordere d By: Megan Montoya on 09-03-2024 RBC (Bld) [#/Vol] 3.69 10*6/uL Low 4.2-5.4 [facility] Serum anion gap measurementO rdered By: Megan Montoya on 09-03-2024 Anion gap [Moles/Vol] 9 mmol/L 5-15 [facility] Serum or plasma calcium reyna urement (mass/volume)Ordered By: Megan Montoya on 09-03-2024 Calcium [Mass/Vol] 9.4 mg/dL 8.5-10.1 [facility] Serum or plasma creatinine m easurement (mass/volume)Ordered By: Megan Montoya on 09-03-2024 Creatinine [Mass/Vol] 0.92 mg/dL 0.55-1.02 [facility] Comment on above: The validity of the calculated GFR & GFRAA in patients over 70 years has not been determined. Clinical correlation is essential. Serum or plasma urea nitroge n measurement (mass/volume)Ordered By: Megan Montoya on 09-03-2024 Urea nitrogen [Mass/Vol] 19 mg/dL High 7-18 [facility] Sodium levelOrdered By: Juan C Montoya on 09-03-2024 Sodium [Moles/Vol] 139 mmol/L 136-145 [facility] Urine blood detectionOrdered By: Megan Montoya on 09-03-2024 Urine Occult Blood 150 /ul High Negative [facility] Urine clarityOrdered By: Pola Montoya on 09-03-2024 Clarity (U) Cloudy Clear [facility] Urine color determinationOrd ered By: Megan Montoya on 09-03-2024 Color (U) Yellow Yellow [facility] Urine cultureOrdered By: Pola Montoya on 09-03-2024 Bacteria identified Cx Nom (U) Proteus mirabilis Abnormal [facility] Bacteria identified Cx Nom (U) Klebsiella pneumoniae sp pneum Abnormal [facility] Bacteria identified Cx Nom (U) Proteus mirabilis Abnormal [place] Bacteria identified Cx Nom (U) Klebsiella pneumoniae sp pneum Abnormal [place] Urine leukocyte esterase det ection by dipstickOrdered By: Megan Montoya on 09-03-2024 Leukocyte esterase Test strip Ql (U) 500 /ul High Negative [place] Urine pHOrdered By: Mgean jimenez on 09-03-2024 pH (U) 6.0 [pH] 5.0 - 8.0 [place] Urine sediment bacteria coun t by microscopy (number/high power field)Ordered By: Megan Montoya on 09-03-2024 Bacteria LM.HPF (Urine sed) [#/Area] 4 /[HPF] None Seen [place] Urine specific gravity measu rementOrdered By: Megan Montoya on 09-03-2024 Specific gravity (U) [Rel density] 1.020 1.002-1.030 [place] Urobilinogen Ql (U)Ordered B y: Megan Montoya on 09-03-2024 Urine Urobilinogen Normal mg/dl Normal [facility] White blood cell (WBC) count Ordered By: Megan Montoya on 09-03-2024 WBC (Bld) [#/Vol] 10.6 10*3/uL 4.4-11.0 [facility] White blood cell countOrdere d By: Megan Montoya on 09-03-2024 Urine WBC 50-100 SEEN /hpf 0-5 [place] [id number] 08-27-2024 [id number] Patient Choice Patient Name: MEL POP Date of : 1940 Normal [facility] Progress Noteon 08-22-2024 Progress Note Normal [facility] Albumin to globulin ratioOrd ered By: Megan Montoya on 08-20-2024 Albumin/Globulin [Mass ratio] 0.7 {ratio} Low 0.9-2.4 [place] Bilirubin, totalOrdered By: Megan Montoya on 08-20-2024 Bilirubin [Mass/Vol] 0.60 mg/dL 0.20-1.00 [facility] Comment on above: For patients on eltr ombopag therapy, use of Dimension [place] TBIL is not recommended. Blood urea nitrogen (BUN)/cr eatinine ratioOrdered By: Megan Montoya on 08-20-2024 Urea nitrogen/Creatinine [Mass ratio] 11.2 mg/mg 10-20 [place] CBC-Complete Blood Cnt No Di ffon 08-20-2024 Erythrocyte distribution width (RBC) [Ratio] 19.2 % High 11.6-14.6 [place] Comment on above: Performed By: #### L 100.0500, L500.4050 #### [facility] [address] [place], [address] Hematocrit (Bld) [Volume fraction] 33.4 % Low 37-47 [place] Comment on above: Performed By: #### L 100.0500, L500.4050 #### [facility] [address] [place], [address] Hemoglobin (Bld) [Mass/Vol] 10.4 g/dL Low 12.0-15.0 [place] Comment on above: Performed By: #### L 100.0500, L500.4050 #### [facility] [address] [place], [address] MCH (RBC) [Entitic mass] 26.3 pg Low 27.0-32.0 [place] Comment on above: Performed By: #### L 100.0500, L500.4050 #### [facility] [address] [place], [address] MCHC (RBC) [Mass/Vol] 31.1 g/dL Low 32-36 [facility] Comment on above: Performed By: #### L 100.0500, L500.4050 #### [facility] [address] [place], [address] MCV (RBC) [Entitic vol] 84.6 fL Normal 81-99 [facility] Comment on above: Performed By: #### L 100.0500, L500.4050 #### [facility] [address] [place], [address] Platelet mean volume (Bld) [Entitic vol] 9.7 fL Normal 6.2-12.0 [place] Comment on above: Performed By: #### L 100.0500, L500.4050 #### [facility] [address] [place], [address] Platelets (Bld) [#/Vol] 405 10*3/uL Normal 150-450 [place] Comment on above: Performed By: #### L 100.0500, L500.4050 #### [facility] [address] [place], [address] RBC (Bld) [#/Vol] 3.95 10*6/uL Low 4.2-5.4 [facility] Comment on above: Performed By: #### L 100.0500, L500.4050 #### [facility] [address] [place], [address] RDW SD 58.9 fl High 35.1-43.9 [place] Comment on above: Performed By: #### L 100.0500, L500.4050 #### [facility] [address] [place], [address] WBC (Bld) [#/Vol] 5.9 10*3/uL Normal 4.4-11.0 [facility] Comment on above: Performed By: #### L 100.0500, L500.4050 #### [facility] [address] [place], [address] Carbon dioxide measurementOr dered By: Megan Montoya on 08-20-2024 CO2 [Moles/Vol] 22.0 mmol/L 21.0-32.0 [place] Chloride measurementOrdered By: Megan Montoya on 08-20-2024 Chloride [Moles/Vol] 109 mmol/L High 98-107 [facility] Comprehensive Metabolic Prof ilon 08-20-2024 Albumin [Mass/Vol] 2.7 g/dL Low 3.2-5.0 [facility] Comment on above: Performed By: #### L 100.0500, L500.4050 #### [facility] [address] [place], [address] Albumin/Globulin [Mass ratio] 0.7 {ratio} Low 0.9-2.4 [place] Comment on above: Performed By: #### L 100.0500, L500.4050 #### [facility] [address] [place], [address] ALK P 117 U/L Normal 45-117 [place] Comment on above: Performed By: #### L 100.0500, L500.4050 #### [facility] [address] [place], [address] ALT [Catalytic activity/Vol] 18 U/L Normal 13-56 [place] Comment on above: Performed By: #### L 100.0500, L500.4050 #### [facility] [address] [place], [address] AST [Catalytic activity/Vol] 18 U/L Normal 15-37 [place] Comment on above: Result Comment: Slig ht Hemolysis, Result may be falsely increased. Performed By: #### L 100.0500, L500.4050 #### [facility] [address] [place], [address] Bilirubin [Mass/Vol] 0.60 mg/dL Normal 0.20-1.00 [facility] Comment on above: Result Comment: For patients on eltrombopag therapy, use of Dimension [place] TBIL is not recommended. Performed By: #### L 100.0500, L500.4050 #### [facility] [address] [place], [address] BUN/CRE 11.2 RATIO Normal 10-20 [place] Comment on above: Performed By: #### L 100.0500, L500.4050 #### [facility] [address] [place], [address] CA,Total 9.0 mg/dL Normal 8.5-10.1 [place] Comment on above: Performed By: #### L 100.0500, L500.4050 #### [facility] [address] [place], [address] Chloride [Moles/Vol] 109 mmol/L High 98-107 [facility] Comment on above: Performed By: #### L 100.0500, L500.4050 #### [facility] [address] [place], [address] CO2 [Moles/Vol] 22.0 mmol/L Normal 21.0-32.0 [place] Comment on above: Performed By: #### L 100.0500, L500.4050 #### [facility] [address] [place], [address] Creatinine [Mass/Vol] 0.98 mg/dL Normal 0.55-1.02 [facility] Comment on above: Result Comment: The validity of the calculated GFR GFRAA in patients over 70 years has not been determined. Clinical correlation is essential. Performed By: #### L 100.0500, L500.4050 #### [facility] [address] [place], [address] EST GFR - AA 69 mL/min Normal >60 [place] Comment on above: Result Comment: Afri can Cambodian GFR Calc Performed By: #### L 100.0500, L500.4050 #### [facility] [address] [place], [address] GAP 7 Normal 5-15 [place] Comment on above: Performed By: #### L 100.0500, L500.4050 #### [facility] [address] [place], [address] GFR/1.73 sq M.predicted among non-blacks MDRD (S/P/Bld) [Vol rate/Area] 57 mL/min/{1.73_m2} Low >60 [place] Comment on above: Result Comment: Non- GFR Calc Performed By: #### L 100.0500, L500.4050 #### [facility] [address] [place], [address] Globulin (S) [Mass/Vol] 4.1 g/dL Normal 2.2-4.2 [facility] Comment on above: Performed By: #### L 100.0500, L500.4050 #### [facility] [address] [place], [address] Glucose [Mass/Vol] 97 mg/dL Normal 74-106 [facility] Comment on above: Performed By: #### L 100.0500, L500.4050 #### [facility] [address] [place], [address] Potassium [Moles/Vol] 4.2 mmol/L Normal 3.5-5.1 [facility] Comment on above: Result Comment: Slig ht Hemolysis, Result may be falsely increased. Performed By: #### L 100.0500, L500.4050 #### [facility] [address] [place], [address] Sodium [Moles/Vol] 138 mmol/L Normal 136-145 [facility] Comment on above: Performed By: #### L 100.0500, L500.4050 #### [facility] [address] [place], [address] T PROT 6.8 g/dL Normal 6.4-8.2 [place] Comment on above: Performed By: #### L 100.0500, L500.4050 #### [facility] [address] [place], [address] Urea nitrogen [Mass/Vol] 11 mg/dL Normal 7-18 [place] Comment on above: Performed By: #### L 100.0500, L500.4050 #### [facility] [address] [place], [address] Erythrocyte distribution wid th ratioOrdered By: Megan Montoya on 08-20-2024 Erythrocyte distribution width (RBC) [Ratio] 19.2 % High 11.6-14.6 [place] Erythrocyte distribution wid th standard deviationOrdered By: Megan Montoya on 08-20-2024 Erythrocyte distribution width (RBC) [Entitic vol] 58.9 fL High 35.1-43.9 [place] Estimated glomerular filtrat ion rate (GFR) AmericanOrdered By: Megan Montoya on 08-20-2024 Estimated GFR (MDRD) Amer 69 mL/min >60 [place] Comment on above: GFR Calc Glomerular filtration rate ( GFR) estimationOrdered By: Megan Montoya on 08-20-2024 Estimated GFR (MDRD) Non-Af Amer 57 mL/min Low >60 [place] Comment on above: Non- GFR Calc Glucose measurementOrdered B y: Megan Mnotoya on 08-20-2024 Glucose [Mass/Vol] 97 mg/dL 74-106 [facility] Hematocrit Auto (Bld) [Volum e fraction]Ordered By: Megan Montoya on 08-20-2024 Hematocrit (Bld) [Volume fraction] 33.4 % Low 37-47 [place] Hemoglobin measurementOrdere d By: Megan Montoya on 08-20-2024 Hemoglobin (Bld) [Mass/Vol] 10.4 g/dL Low 12.0-15.0 [facility] - Chemistry and C hemistry - challengeOrdered By: Megan Montoya on 08-20-2024 AST [Catalytic activity/Vol] 18 U/L 15-37 [place] Comment on above: Slight Hemolysis, Re sult may be falsely increased. MCV (mean corpuscular volume ) determinationOrdered By: Megan Montoya on 08-20-2024 MCV (RBC) [Entitic vol] 84.6 fL 81-99 [facility] Mean corpuscular hemoglobin (MCH) determinationOrdered By: Megan Montoya on 08-20-2024 MCH (RBC) [Entitic mass] 26.3 pg Low 27.0-32.0 [place] Mean corpuscular hemoglobin concentration (MCHC) determinationOrdered By: Megan Montoya on 08-20-2024 MCHC (RBC) [Mass/Vol] 31.1 g/dL Low 32-36 [facility] Mean platelet volume determi nationOrdered By: Megan Montoya on 08-20-2024 Platelet mean volume (Bld) [Entitic vol] 9.7 fL 6.2-12.0 [place] Platelet countOrdered By: Johnathan Guzman on 08-20-2024 Platelets (Bld) [#/Vol] 405 10*3/uL 150-450 [place] Potassium measurementOrdered By: Megan Montoya on 08-20-2024 Potassium [Moles/Vol] 4.2 mmol/L 3.5-5.1 [facility] Comment on above: Slight Hemolysis, Re sult may be falsely increased. RBC Auto (Bld) [#/Vol]Ordere d By: Megan Montoya on 08-20-2024 RBC (Bld) [#/Vol] 3.95 10*6/uL Low 4.2-5.4 [facility] Serum anion gap measurementO rdered By: Megan Montoya on 08-20-2024 Anion gap [Moles/Vol] 7 mmol/L 5-15 [facility] Serum globulin measurementOr dered By: Megan Montoya on 08-20-2024 Globulin (S) [Mass/Vol] 4.1 g/dL 2.2-4.2 [facility] Serum or plasma alanine hinojosa otransferase (ALT) measurementOrdered By: Megan Montoya on 08-20-2024 ALT [Catalytic activity/Vol] 18 U/L 13-56 [place] Serum or plasma albumin reyna urement (mass/volume)Ordered By: Megan Montoya on 08-20-2024 Albumin [Mass/Vol] 2.7 g/dL Low 3.2-5.0 [facility] Serum or plasma alkaline silvia sphatase measurementOrdered By: Megan Montoya on 08-20-2024 ALP [Catalytic activity/Vol] 117 U/L 45-117 [place] Serum or plasma calcium reyna urement (mass/volume)Ordered By: Megan Montoya on 08-20-2024 Calcium [Mass/Vol] 9.0 mg/dL 8.5-10.1 [facility] Serum or plasma creatinine m easurement (mass/volume)Ordered By: Megan Montoya on 08-20-2024 Creatinine [Mass/Vol] 0.98 mg/dL 0.55-1.02 [facility] Comment on above: The validity of the calculated GFR & GFRAA in patients over 70 years has not been determined. Clinical correlation is essential. Serum or plasma urea nitroge n measurement (mass/volume)Ordered By: Megan Montoya on 08-20-2024 Urea nitrogen [Mass/Vol] 11 mg/dL 7-18 [place] Sodium levelOrdered By: Juan C Montoya on 08-20-2024 Sodium [Moles/Vol] 138 mmol/L 136-145 [facility] Total proteinOrdered By: Pola Montoya on 08-20-2024 Protein [Mass/Vol] 6.8 g/dL 6.4-8.2 [facility] White blood cell (WBC) count Ordered By: Megan Montoya on 08-20-2024 WBC (Bld) [#/Vol] 5.9 10*3/uL 4.4-11.0 [facility] [id number] 08-16-2024 [id number] Normal [facility] [id number] Normal [facility] [id number] MAR & Discharge med list transmitted to [facility] via Careport per TCC request. Electronically signed by JESSICA Leone Normal [facility] [id number] Normal [facility] Laboratory - Chemistry and C hemistry - challengeon 08-16-2024 Glucose [Mass/Vol] 120 mg/dL High 70 - 100 mg/dL [facility] No Panel Informationon 08-16 Interpretation and review of laboratory results Abnormal [facility] Performed by: [facility], [address] [place] [address] CLIA ID: [id number] [facility] Nursing Noteon 08-16-2024 Nursing Note Patient picked up fo r transfer to [facility] by jayson. Report already called to GENET Garcia. Normal [facility] Nursing Note Telephone report erin led to GENET Garcia at [facility]. Normal [facility] Progress Noteon 08-16-2024 Progress Note Normal [facility] on 08-15-2024 30 Normal [facility] [id number] 08-15-2024 [id number] Authorization is pending with [facility]. Ref# [id number] to be DC'd to [facility]. Dtr Fidel Sharma. CM to follow. [facility] Progress Noteon 08-15-2024 Progress [facility] 30on 08-14-2024 30 Normal [facility] [id number] 08-14-2024 [id number] Normal [facility] Progress Noteon 08-14-2024 Progress Note [facility] Progress Note Normal [facility] Progress Note Normal [facility] 30on 08-13-2024 30 Normal [facility] 30 Normal [facility] [id number] 08-13-2024 [id number] Normal [facility] Progress Noteon 08-13-2024 Progress Note [facility] Progress Note Normal [facility] 30on 08-12-2024 30 Normal [facility] Progress Noteon 08-12-2024 Progress Note Normal [facility] 30on 08-11-2024 30 Normal [facility] 30 Normal [facility] [id number] 08-11-2024 [id number] CM noted DC orders i n place, Dgt touring facilities over the weekend. [facility] pending acceptance, updates sent via careport. [facility] Progress Noteon 08-11-2024 Progress Note [facility] 30on 08-10-2024 30 Normal [facility] [id number] 08-10-2024 [id number] Normal [facility] Progress Noteon 08-10-2024 Progress Note [facility] [id number] 08-09-2024 [id number] Normal [facility] [id number] Normal [facility] [id number] Updated PT/OT notes placed to [facility] via [facility]port per [facility] request. Await review and response regarding ability to accept. TCC notified. Electronically signed by [facility] Aracelis Gardiner Normal [facility] [id number] Patient is medically ready for dc. PT/OT both continuing to recommend SNF. [facility] manager solar asked to start auth. Plan to dc back to [facility] pending auth [facility] Progress Noteon 08-09-2024 Progress Note [facility] [id number] 08-08-2024 [id number] Normal [facility] Progress Noteon 08-08-2024 Progress Note Normal [facility] Progress Note Normal [facility] Progress Note Normal [facility] 30on 08-07-2024 30 Normal [facility] 30 Normal [facility] 30 Normal [facility] [id number] 08-07-2024 [id number] Normal [facility] Progress Noteon 08-07-2024 Progress Note Normal [facility] 30on 08-06-2024 30 Normal [facility] 30 Normal [facility] [id number] 08-06-2024 [id number] Pt cont's on IV AtBs '. Plan is for pt to return to [facility]. Auth and HECTOR needed prior to DC. CM to follow. Normal [facility] [id number] Normal [facility] Comprehensive metabolic 1998 panelon 08-06-2024 Albumin [Mass/Vol] 2.4 g/dL Low 3.4 - 4.8 g/dL [facility] ALP [Catalytic activity/Vol] 72 U/L 40 - 150 U/L [facility] ALT [Catalytic activity/Vol] 24 U/L NINF - 30 U/L [facility] Anion gap [Moles/Vol] 7 mmol/L 3 - 13 mmol/L [facility] AST [Catalytic activity/[facility]] [facility] U[facility] Bilirubin [Mass/Vol] 0.9 mg/dL [facility] mg/dL [facility] Calcium [Mass/Vol] 8.4 mg/dL Low 8.8 - 10. 0 mg/dL [facility] Chloride [Moles/Vol] 115 mmol/L High 98 - 10 7 mmol/L [facility] CO2 [Moles/Vol] 17 mmol/L Low 23 - 31 mmol/L [facility] Creatinine [Mass/Vol] 0.91 mg/dL 0.57 - 1.11 mg/dL [facility] GFR/1.73 sq M.predicted (S/P/Bld) [Vol rate/Area] 62.3 mL/min - PINF [facility] Comment on above: Calculation based on the Chronic Kidney Disease Epidemiology Collaboration (CKD-EPI) equation refit without adjustment for race Glucose [Mass/Vol] 92 mg/dL 82 - 115 mg/dL [facility] Interpretation and review of laboratory results Abnormal [facility] Potassium [Moles/Vol] 3.8 mmol/L 3.5 - 5.1 mmol/L [facility] Comment on above: Plasma potassium chris ues may be up to 0.5 mmol/L lower than serum values. Protein [Mass/Vol] 5.5 g/dL Low 6.4 - 8.3 g/dL [facility] Sodium [Moles/Vol] 139 mmol/L 136 - 145 mmol/L [facility] Urea nitrogen [Mass/Vol] 9 mg/dL 9 - 23 mg/dL [facility] Consulton 08-06-2024 Consult Normal [facility] Progress Noteon 08-06-2024 Progress Note [facility] Progress Note Normal [facility] 30on 08-05-2024 30 Normal [facility] CBC W Auto Differential pane l (Bld)Ordered By: Frank Milligan on 08-05-2024 Basophils (Bld) [#/Vol] 0 10*3/uL 0.0 - 0.2 10*3/uL [facility] Basophils/100 WBC (Bld) 0.3 % 0.0 - 2.0 % [facility] Eosinophils (Bld) [#/Vol] 0.1 10*3/uL 0.0 - 0.5 10*3/uL [facility] Eosinophils/100 WBC (Bld) 1.6 % 0.0 - 6.0 % [facility] Erythrocyte distribution width (RBC) [Ratio] 18.9 % High 11.5 - 15.0 % [facility] Hematocrit (Bld) [Volume fraction] 33.3 % Low 35.0 - 47.0 % [facility] Hemoglobin (Bld) [Mass/Vol] 10.3 g/dL Low 11.7 - 16.0 g/dL [facility] Immature granulocytes (Bld) [#/Vol] 0.1 10*3/uL High NINF - 0.1 10*3/uL [facility] Immature granulocytes/100 WBC (Bld) 0.7 % 0.0 - 2.0 % [facility] Interpretation and review of laboratory results Abnormal [facility] Lymphocytes (Bld) [#/Vol] 1.1 10*3/uL 1.0 - 4.3 10*3/uL [facility] Lymphocytes/100 WBC (Bld) 15.6 % 15.0 - 45.0 % [facility] MCH (RBC) [Entitic mass] 26 pg 26.0 - 34.0 pg [facility] MCHC (RBC) [Mass/Vol] 30.9 % 30.5 - 36.0 % [facility] MCV (RBC) [Entitic vol] 84.1 fL 77.0 - 99.0 fL [facility] Monocytes (Bld) [#/Vol] 0.7 10*3/uL 0.0 - 0.9 10*3/uL [facility] Monocytes/100 WBC (Bld) 9.9 % 5.0 - 13.0 % [facility] Neutrophils (Bld) [#/Vol] 5.3 10*3/uL 1.8 - 7.5 10*3/uL [facility] Neutrophils/100 WBC (Bld) 71.9 % 38.0 - 82.0 % [facility] Nucleated RBC/100 WBC (Bld) [Ratio] 0 % [facility] Platelet mean volume (Bld) [Entitic vol] 9.2 fL 9.0 - 12.7 fL [facility] Platelets (Bld) [#/Vol] 235 10*3/uL 140 - 440 10*3/uL [facility] RBC (Bld) [#/Vol] 3.96 10*6/uL 3.80 - 5.2 0 10*6/uL [facility] WBC (Bld) [#/Vol] 7.3 10*3/uL 3.6 - 10.7 10*3/uL [facility] CBC W Auto Differential pane l (Bld)Ordered By: Aden Baires on 08-05-2024 Basophils (Bld) [#/Vol] 0 10*3/uL 0.0 - 0.2 10*3/uL [facility] Basophils/100 WBC (Bld) 0.3 % 0.0 - 2.0 % [facility] Eosinophils (Bld) [#/Vol] 0.1 10*3/uL 0.0 - 0.5 10*3/uL [facility] Eosinophils/100 WBC (Bld) 1.5 % 0.0 - 6.0 % [facility] Erythrocyte distribution width (RBC) [Ratio] 19.2 % High 11.5 - 15.0 % [facility] Hematocrit (Bld) [Volume fraction] 31.9 % Low 35.0 - 47.0 % [facility] Hemoglobin (Bld) [Mass/Vol] 9.9 g/dL Low 11.7 - 16.0 g/dL [facility] Immature granulocytes (Bld) [#/Vol] 0 10*3/uL NINF - 0.1 10*3/uL [facility] Immature granulocytes/100 WBC (Bld) 0.5 % 0.0 - 2.0 % [facility] Interpretation and review of laboratory results Abnormal [facility] Lymphocytes (Bld) [#/Vol] 1.1 10*3/uL 1.0 - 4.3 10*3/uL [facility] Lymphocytes/100 WBC (Bld) 16.6 % 15.0 - 45.0 % [facility] MCH (RBC) [Entitic mass] 26.2 pg 26.0 - 34.0 pg [facility] MCHC (RBC) [Mass/Vol] 31 % 30.5 - 36.0 % [facility] MCV (RBC) [Entitic vol] 84.4 fL 77.0 - 99.0 fL [facility] Monocytes (Bld) [#/Vol] 0.6 10*3/uL 0.0 - 0.9 10*3/uL [facility] Monocytes/100 WBC (Bld) 9.1 % 5.0 - 13.0 % [facility] Neutrophils (Bld) [#/Vol] 4.7 10*3/uL 1.8 - 7.5 10*3/uL [facility] Neutrophils/100 WBC (Bld) 72 % 38.0 - 82.0 % [facility] Nucleated RBC/100 WBC (Bld) [Ratio] 0 % [facility] Platelet mean volume (Bld) [Entitic vol] 10 fL 9.0 - 12.7 fL [facility] [facility] Plate[facility] (Bld) [#/Vol] 242 10*3/uL 140 - 440 10*3/uL [facility] RBC (Bld) [#/Vol] 3.78 10*6/uL Low 3.80 - 5.2 0 10*6/uL [facility] WBC (Bld) [#/Vol] 6.5 10*3/uL 3.6 - 10.7 10*3/uL [facility] CBC WITH AUTO DIFFERENTIALon 08-05-2024 Basophils (Bld) [#/Vol] 0.0 10*3/uL Normal 0.0-0.2 [facility] Comment on above: Performed By: #### L [id number] ####Tax Services Manager: VELMA VALADEZ ([phone])[facility])[address] [place] [address] [place] Basophils/100 WBC (Bld) 0.3 % Normal 0.0-2.0 [facility] Comment on above: Performed By: #### L [id number] ####Tax Services Manager: VELMA VALADEZ ([phone])[facility])[address] [place] [address] Eosinophils (Bld) [#/Vol] 0.1 10*3/uL Normal 0.0-0.5 [facility] Comment on above: Performed By: #### L [id number] ####Tax Services Manager: VELMA VALADEZ ([phone])[facility])[address] [place] [address] Eosinophils/100 WBC (Bld) 1.6 % Normal 0.0-6.0 [facility] Comment on above: Performed By: #### L [id number] ####Tax Services Manager: VELMA VALADEZ ([phone])[facility])[address] [place] [address] Erythrocyte distribution width (RBC) [Ratio] 18.9 % High 11.5-15.0 [facility] Comment on above: Performed By: #### L [id number] ####Tax Services Manager: VELMA VALADEZ ([phone])[facility])[address] [place] [address] Hematocrit (Bld) [Volume fraction] 33.3 % Low 35.0-47.0 [facility] Comment on above: Performed By: #### L [id number] ####Tax Services Manager: VELMA [phone])[facility])[address] [place] [address] Hemoglobin (Bld) [Mass/Vol] 10.3 g/dL Low 11.7-16.0 [facility] Comment on above: Performed By: #### L [id number] ####Tax Services Manager: VELMA VALADEZ ([phone])[facility])[address] [place] [address] IMMATURE GRANS % 0.7 % Normal 0.0-2.0 [facility] Comment on above: Performed By: #### L [id number] ####Tax Services Manager: VELMA VALADEZ ([phone])[facility])[address] [place] [address] IMMATURE GRANS ABSOLUTE 0.1 10*3/uL High <0.1 [facility] Comment on above: Performed By: #### L [id number] ####Tax Services Manager: VELMA VALADEZ ([phone])[facility])[address] [place] [address] Lymphocytes (Bld) [#/Vol] 1.1 10*3/uL Normal 1.0-4.3 [facility] Comment on above: Performed By: #### L [id number] ####Tax Services Manager: VELMA VALADEZ ([phone])[facility])[address] [place] [address] Lymphocytes/100 WBC (Bld) 15.6 % Normal 15.0-45.0 [facility] Comment on above: Performed By: #### L [id number] ####Tax Services Manager: VELMA VALADEZ ([phone])[facility])[address] [place] [address] MCH (RBC) [Entitic mass] 26.0 pg Normal 26.0-34.0 [facility] Comment on above: Performed By: #### L [id number] ####Tax Services Manager: VELMA VALADEZ ([phone])[facility])[address] [place] [address] MCHC 30.9 % Normal 30.5-36.0 [facility] Comment on above: Performed By: #### L [id number] ####Tax Services Manager: VELMA VALADEZ ([phone])[facility])[address] [place] [address] MCV (RBC) [Entitic vol] 84.1 fL Normal 77.0-99.0 [facility] Comment on above: Performed By: #### L [id number] ####Tax Services Manager: VELMA VALADEZ ([phone])[facility])[address] [place] [address] Monocytes (Bld) [#/Vol] 0.7 10*3/uL Normal 0.0-0.9 [facility] Comment on above: Performed By: #### L [id number] ####Tax Services Manager: VELMA VALADEZ ([phone])[facility])[address] [place] [address] Monocytes/100 WBC (Bld) 9.9 % Normal 5.0-13.0 [facility] Comment on above: Performed By: #### L [id number] ####Tax Services Manager: VELMA VALADEZ ([phone])[facility])[address] [place] [address] NEUTROPHILS ABSOLUTE 5.3 10*3/uL Normal 1.8-7.5 [facility] Comment on above: Performed By: #### L [id number] ####Tax Services Manager: VELMA VALADEZ ([phone])[facility])[address] [place] [address] Neutrophils/100 WBC (Bld) 71.9 % Normal 38.0-82.0 [facility] Comment on above: Performed By: #### L [id number] ####Tax Services Manager: VELMA VALADEZ ([phone])[facility])[address] [place] [address] NRBC 0.0 /100 WBCs Normal 0.0-2.0 [facility] Comment on above: Performed By: #### L [id number] ####Tax Services Manager: VELMA VALADEZ ([phone])[facility])[address] [place] [address] Platelet mean volume (Bld) [Entitic vol] 9.2 fL Normal 9.0-12.7 [facility] Comment on above: Performed By: #### L [id number] ####Tax Services Manager: VELMA VALADEZ ([phone])[facility])[address] [place] [address] Platelets (Bld) [#/Vol] 235 10*3/uL Normal 140-440 [facility] Comment on above: Performed By: #### L [id number] ####Tax Services Manager: VELMA VALADEZ ([phone])[facility])[address] [place] [address] RBC (Bld) [#/Vol] 3.96 10*6/uL Normal 3.80-5.20 [facility] Comment on above: Performed By: #### L [id number] ####Tax Services Manager: VELMA VALADEZ ([phone])[facility] ([facility])[address] [place] [address] WBC (Bld) [#/Vol] 7.3 10*3/uL Normal 3.6-10.7 [facility] Comment on above: Performed By: #### L [id number] ####Tax Services Manager: VELMA VALADEZ ([phone])[facility])[address] [place] [address] Basophils (Bld) [#/Vol] 0.0 10*3/uL Normal 0.0-0.2 [facility] Comment on above: Performed By: #### L [id number] ####Tax Services Manager: VELMA VALADEZ ([phone])[facility])[address] [place] [address] [place] Basophils/100 WBC (Bld) 0.3 % Normal 0.0-2.0 [facility] Comment on above: Performed By: #### L [id number] ####Tax Services Manager: VELMA VALADEZ ([phone])[facility])[address] [place] [address] Eosinophils (Bld) [#/Vol] 0.1 10*3/uL Normal 0.0-0.5 [facility] Comment on above: Performed By: #### L [id number] ####Tax Services Manager: VELMA VALADEZ ([phone])[facility])[address] [place] [address] Eosinophils/100 WBC (Bld) 1.5 % Normal 0.0-6.0 [facility] Comment on above: Performed By: #### L [id number] ####Tax Services Manager: VELMA VALADEZ ([phone])[address] Erythrocyte distribution width (RBC) [Ratio] 19.2 % High 11.5-15.0 [facility] Comment on above: Performed By: #### L [id number] ####Tax Services Manager: VELMA VALADEZ ([phone])[facility])[address] [place] [address] Hematocrit (Bld) [Volume fraction] 31.9 % Low 35.0-47.0 [facility] Comment on above: Performed By: #### L [id number] ####Tax Services Manager: VELMA VALADEZ ([phone])[address] Hemoglobin (Bld) [Mass/Vol] 9.9 g/dL Low 11.7-16.0 [facility] Comment on above: Performed By: #### L [id number] ####Tax Services Manager: VELMA VALADEZ ([phone])[facility])[address] [place] [address] IMMATURE GRANS % 0.5 % Normal 0.0-2.0 [facility] Comment on above: Performed By: #### L [id number] ####Tax Services Manager: VELMA VALADEZ ([phone])[address] IMMATURE GRANS ABSOLUTE 0.0 10*3/uL Normal <0.1 [facility] Comment on above: Performed By: #### L [id number] ####Tax Services Manager: VELMA VALADEZ ([phone])[facility])[address] [place] [address] Lymphocytes (Bld) [#/Vol] 1.1 10*3/uL Normal 1.0-4.3 [facility] Comment on above: Performed By: #### L [id number] ####Tax Services Manager: VELMA VALADEZ ([phone])[facility])[address] [place] [address] Lymphocytes/100 WBC (Bld) 16.6 % Normal 15.0-45.0 [facility] Comment on above: Performed By: #### L [id number] ####Tax Services Manager: VELMA VALADEZ ([phone])[facility])[address] [place] [address] MCH (RBC) [Entitic mass] 26.2 pg Normal 26.0-34.0 [facility] Comment on above: Performed By: #### L [id number] ####Tax Services Manager: VELMA VALADEZ ([phone])[facility])[address] [place] [address] MCHC 31.0 % Normal 30.5-36.0 [facility] Comment on above: Performed By: #### L [id number] ####Tax Services Manager: VELMA VALADEZ ([phone])[facility])[address] [place] [address] MCV (RBC) [Entitic vol] 84.4 fL Normal 77.0-99.0 [facility] Comment on above: Performed By: #### L [id number] ####Tax Services Manager: VELMA VALADEZ ([phone])[facility])[address] [place] [address] Monocytes (Bld) [#/Vol] 0.6 10*3/uL Normal 0.0-0.9 [facility] Comment on above: Performed By: #### L [id number] ####Tax Services Manager: VELMA VALADEZ ([phone])[facility])[address] [place] [address] Monocytes/100 WBC (Bld) 9.1 % Normal 5.0-13.0 [facility] Comment on above: Performed By: #### L [id number] ####Tax Services Manager: VELMA VALDAEZ ([phone])[facility] ([facility])[address] [place] [address] NEUTROPHILS ABSOLUTE 4.7 10*3/uL Normal 1.8-7.5 [facility] Comment on above: Performed By: #### L [id number] ####Tax Services Manager: VELMA VALADEZ ([phone])[facility])[address] [place] [address] Neutrophils/100 WBC (Bld) 72.0 % Normal 38.0-82.0 [facility] Comment on above: Performed By: #### L [id number] ####Tax Services Manager: VELMA VALADEZ ([phone])[facility])[address] [place] [address] NRBC 0.0 /100 WBCs Normal 0.0-2.0 [facility] Comment on above: Performed By: #### L [id number] ####Tax Services Manager: VELMA VALADEZ ([phone])[facility] ([facility])[address] [place] [address] Platelet mean volume (Bld) [Entitic vol] 10.0 fL Normal 9.0-12.7 [facility] Comment on above: Performed By: #### L [id number] ####Tax Services Manager: VELMA VALADEZ ([phone])[facility] ([facility])[address] [place] [address] Platelets (Bld) [#/Vol] 242 10*3/uL Normal 140-440 [facility] Comment on above: Performed By: #### L [id number] ####Tax Services Manager: VELMA [phone])[facility] ([facility])[address] [place] [address] RBC (Bld) [#/Vol] 3.78 10*6/uL Low 3.80-5.20 [facility] Comment on above: Performed By: #### L [id number] ####Tax Services Manager: VELMA VALADEZ ([phone])[facility])[address] [place] [address] WBC (Bld) [#/Vol] 6.5 10*3/uL Normal 3.6-10.7 [facility] Comment on above: Performed By: #### L [id number] ####Tax Services Manager: VLEMA VALADEZ ([phone])[facility])[address] [place] [address] COMPREHENSIVE METABOLIC PANE Gilberto 08-05-2024 Albumin [Mass/Vol] 2.4 g/dL Low 3.4-4.8 [facility] Comment on above: Performed By: #### L [id number] ####Tax Services Manager: VELMA VALADEZ ([phone])[facility])[address] [place] [address] ALP [Catalytic activity/Vol] 72 U/L Normal 40-150 [facility] Comment on above: Performed By: #### L [id number] ####Tax Services Manager: VELMA VALADEZ ([phone])[facility])[address] [place] [address] ALT [Catalytic activity/Vol] 24 U/L Normal <30 [facility] Comment on above: Performed By: #### L [id number] ####Tax Services Manager: VELMA VALADEZ ([phone])[facility])[address] [place] [address] Anion gap [Moles/Vol] 7 mmol/L Normal 3-13 [facility] Comment on above: Performed By: #### L [id number] ####Tax Services Manager: VELMA VALADEZ ([phone])[facility])[address] [place] [address] [place] AST [Catalytic activity/Vol] 21 U/L Normal <34 [facility] Comment on above: Performed By: #### L [id number] ####Tax Services Manager: VELMA VALADEZ ([phone])[facility])[address] [place] [address] Bilirubin [Mass/Vol] 0.9 mg/dL Normal <1.2 [facility] Comment on above: Performed By: #### L [id number] ####Tax Services Manager: VELMA VALADEZ ([phone])[facility] ([facility])[address] [place] [address] Calcium [Mass/Vol] 8.4 mg/dL Low 8.8-10.0 [facility] Comment on above: Performed By: #### L [id number] ####Tax Services Manager: VELMA VALADEZ ([phone])[facility] ([facility])[address] [place] [address] Chloride [Moles/Vol] 115 mmol/L High 98-107 [facility] Comment on above: Performed By: #### L [id number] ####Tax Services Manager: VELMA VALADEZ ([phone])[facility])[address] [place] [address] CO2 [Moles/Vol] 17 mmol/L Low 23-31 [facility] Comment on above: Performed By: #### L [id number] ####Tax Services Manager: VELMA VALADEZ ([phone])[facility])[address] [place] [address] Creatinine [Mass/Vol] 0.91 mg/dL Normal 0.57-1.11 [facility] Comment on above: Performed By: #### L [id number] ####Tax Services Manager: VELMA VALADEZ ([phone])[facility])[address] [place] [address] [place] GLOMERULAR FILTRATION RATE ML/MIN/1.73 SQ M.PREDICTED 62.3 mL/min/1.73m*2 Normal >60.0 [facility] Comment on above: Result Comment: Calc ulation based on the Chronic Kidney Disease Epidemiology Collaboration (CKD-EPI) equation refit without adjustment for race Performed By: #### L [id number] ####Tax Services Manager: VELMA VALADEZ ([phone])[facility])[address] [place] [address] Glucose [Mass/Vol] 92 mg/dL Normal 82-115 [facility] Comment on above: Performed By: #### L [id number] ####Tax Services Manager: VELMA VALADEZ ([phone])[facility])[address] [place] [address] Potassium [Moles/Vol] 3.8 mmol/L Normal 3.5-5.1 [facility] Comment on above: Result Comment: [facility] potassium values may be up to 0.5 mmol/L lower than serum values. Performed By: #### L [id number] ####Tax Services Manager: VELMA VALADEZ ([phone])[facility])[address] [place] [address] Protein [Mass/Vol] 5.5 g/dL Low 6.4-8.3 [facility] Comment on above: Performed By: #### L [id number] ####Tax Services Manager: VELMA VALADEZ ([phone])[facility])[address] [place] [address] Sodium [Moles/Vol] 139 mmol/L Normal 136-145 [facility] Comment on above: Performed By: #### L [id number] ####Tax Services Manager: VELMA VALADEZ ([phone])[facility])[address] [place] [address] [place] Urea nitrogen [Mass/Vol] 9 mg/dL Normal 9-23 [facility] Comment on above: Performed By: #### L [id number] ####Tax Services Manager: VELMA VALADEZ ([phone])[facility])[address] [place] [address] Albumin [Mass/Vol] 2.3 g/dL Low 3.4-4.8 [facility] Comment on above: Performed By: #### L [id number] ####Tax Services Manager: VELMA VALADEZ ([phone])[facility] [place] [address] ALP [Catalytic activity/Vol] 74 U/L Normal 40-150 [facility] Comment on above: Performed By: #### L AB17 ####Tax Services Manager: VELMA VALADEZ ([phone])[facility] ([facility])[address] [place] [address] ALT [Catalytic activity/Vol] 27 U/L Normal <30 [facility] Comment on above: Performed By: #### L [id number] ####Tax Services Manager: VELMA VALADEZ ([phone])[facility])[address] [place] [address] Anion gap [Moles/Vol] 5 mmol/L Normal 3-13 [facility] Comment on above: Performed By: #### L AB17 ####Tax Services Manager: VELMA VALADEZ ([phone])[facility])[address] [place] [address] AST [Catalytic activity/Vol] 24 U/L Normal <34 [facility] Comment on above: Performed By: #### L AB17 ####Tax Services Manager: VELMA VALADEZ ([phone])[facility])[address] [place] [address] Bilirubin [Mass/Vol] 0.6 mg/dL Normal <1.2 [facility] Comment on above: Performed By: #### L AB17 ####Tax Services Manager: VELMA VALADEZ ([phone])[facility])[address] [place] [address] Calcium [Mass/Vol] 8.1 mg/dL Low 8.8-10.0 [facility] Comment on above: Performed By: #### L AB17 ####Tax Services Manager: VELMA VALADEZ ([phone])[facility])[address] [place] [address] Chloride [Moles/Vol] 108 mmol/L High 98-107 [facility] Comment on above: Performed By: #### L AB17 ####Tax Services Manager: VELMA VALADEZ ([phone])[facility])[address] [place] [address] CO2 [Moles/Vol] 21 mmol/L Low 23-31 [facility] Comment on above: Performed By: #### L AB17 ####Tax Services Manager: VELMA VALADEZ ([phone])[facility])[address] [place] [address] Creatinine [Mass/Vol] 0.89 mg/dL Normal 0.57-1.11 [facility] Comment on above: Performed By: #### L AB17 ####Tax Services Manager: VELMA VALADEZ ([phone])[facility])[address] [place] [address] GLOMERULAR FILTRATION RATE ML/MIN/1.73 SQ M.PREDICTED 64.0 mL/min/1.73m*2 Normal >60.0 [facility] Comment on above: Result Comment: Calc ulation based on the Chronic Kidney Disease Epidemiology Collaboration (CKD-EPI) equation refit without adjustment for race Performed By: #### L AB17 ####Tax Services Manager: VELMA VALADEZ ([phone])[facility])[address] [place] [address] Glucose [Mass/Vol] 85 mg/dL Normal 82-115 [facility] Comment on above: Performed By: #### L AB17 ####Tax Services Manager: VELMA VALADEZ ([phone])[facility])[address] [place] [address] Potassium [Moles/Vol] 3.8 mmol/L Normal 3.5-5.1 [facility] Comment on above: Result Comment: [facility] potassium values may be up to 0.5 mmol/L lower than serum values. Performed By: #### L AB17 ####Tax Services Manager: VELMA VALADEZ ([phone])[facility])[address] [place] [address] Protein [Mass/Vol] 5.2 g/dL Low 6.4-8.3 [facility] Comment on above: Performed By: #### L AB17 ####Tax Services Manager: VELMA VALADEZ ([phone])[address] Sodium [Moles/Vol] 134 mmol/L Low 136-145 [facility] Comment on above: Performed By: #### L AB17 ####Tax Services Manager: VELMA VALADEZ ([phone])[facility])[address] [place] [address] Urea nitrogen [Mass/Vol] 13 mg/dL Normal 9-23 [facility] Comment on above: Performed By: #### L AB17 ####Tax Services Manager: VELMA VALADEZ ([phone])[facility])[address] [place] [address] Comprehensive metabolic 1998 panelon 08-05-2024 Albumin [Mass/Vol] 2.3 g/dL Low 3.4 - 4.8 g/dL [facility] ALP [Catalytic activity/Vol] 74 U/L 40 - 150 U/L [facility] ALT [Catalytic activity/Vol] 27 U/L NINF - 30 U/L [facility] Anion gap [Moles/Vol] 5 mmol/L 3 - 13 mmol/L [facility] AST [Catalytic activity/Vol] [facility] U[facility] Bilirubin [Mass/Vol] 0.6 mg/dL NINF - 1.2 mg/dL [facility] Calcium [Mass/Vol] 8.1 mg/dL Low 8.8 - 10. 0 mg/dL [facility] Chloride [Moles/Vol] 108 mmol/L High 98 - 10 7 mmol/L [facility] CO2 [Moles/Vol] 21 mmol/L Low 23 - 31 mmol/L [facility] Creatinine [Mass/Vol] 0.89 mg/dL 0.57 - 1.11 mg/dL [facility] GFR/1.73 sq M.predicted (S/P/Bld) [Vol rate/Area] 64 mL/min - PINF [facility] Comment on above: Calculation based on the Chronic Kidney Disease Epidemiology Collaboration (CKD-EPI) equation refit without adjustment for race Glucose [Mass/Vol] 85 mg/dL 82 - 115 mg/dL [facility] Interpretation and review of laboratory results Abnormal [facility] Potassium [Moles/Vol] 3.8 mmol/L 3.5 - 5.1 mmol/L [facility] Comment on above: Plasma potassium chris ues may be up to 0.5 mmol/L lower than serum values. Protein [Mass/Vol] 5.2 g/dL Low 6.4 - 8.3 g/dL [facility] Sodium [Moles/Vol] 134 mmol/L Low 136 - 145 mmol/L [facility] Urea nitrogen [Mass/Vol] 13 mg/dL 9 - 23 mg/dL [facility] Progress Noteon 08-05-2024 Progress Note Normal [facility] Progress Note Normal [facility] 30on 08-04-2024 30 Normal [facility] 30 Normal [facility] CBC W Auto Differential pane l (Bld)Ordered By: Devika Eisenberg on 08-04-2024 Basophils (Bld) [#/Vol] 0 10*3/uL 0.0 - 0.2 10*3/uL [facility] Basophils/100 WBC (Bld) 0.2 % 0.0 - 2.0 % [facility] Eosinophils (Bld) [#/Vol] 0.1 10*3/uL 0.0 - 0.5 10*3/uL [facility] Eosinophils/100 WBC (Bld) 1.4 % 0.0 - 6.0 % [facility] Erythrocyte distribution width (RBC) [Ratio] 19.3 % High 11.5 - 15.0 % [facility] Hematocrit (Bld) [Volume fraction] 33 % Low 35.0 - 47.0 % [facility] Hemoglobin (Bld) [Mass/Vol] 10 g/dL Low 11.7 - 16.0 g/dL [facility] Immature granulocytes (Bld) [#/Vol] 0 10*3/uL NINF - 0.1 10*3/uL [facility] Immature granulocytes/100 WBC (Bld) 0.5 % 0.0 - 2.0 % [facility] Interpretation and review of laboratory results Abnormal [facility] Lymphocytes (Bld) [#/Vol] 1 10*3/uL 1.0 - 4.3 10*3/uL [facility] Lymphocytes/100 WBC (Bld) 17.7 % 15.0 - 45.0 % [facility] MCH (RBC) [Entitic mass] 25.8 pg Low 26.0 - 34.0 pg [facility] MCHC (RBC) [Mass/Vol] 30.3 % Low 30.5 - 36.0 % [facility] MCV (RBC) [Entitic vol] 85.1 fL 77.0 - 99.0 fL [facility] Monocytes (Bld) [#/Vol] 0.5 10*3/uL 0.0 - 0.9 10*3/uL [facility] Monocytes/100 WBC (Bld) 9.5 % 5.0 - 13.0 % [facility] Neutrophils (Bld) [#/Vol] 3.9 10*3/uL 1.8 - 7.5 10*3/uL [facility] Neutrophils/100 WBC (Bld) 70.7 % 38.0 - 82.0 % [facility] Nucleated RBC/100 WBC (Bld) [Ratio] 0 % [facility] Platelet mean volume (Bld) [Entitic vol] 9.8 fL 9.0 - 12.7 fL [facility] Platelets (Bld) [#/Vol] 280 10*3/uL 140 - 440 10*3/uL [facility] RBC (Bld) [#/Vol] 3.88 10*6/uL 3.80 - 5.2 0 10*6/uL [facility] WBC (Bld) [#/Vol] 5.6 10*3/uL 3.6 - 10.7 10*3/uL [facility] CBC WITH AUTO DIFFERENTIALon 08-04-2024 Basophils (Bld) [#/Vol] 0.0 10*3/uL Normal 0.0-0.2 [facility] Comment on above: Performed By: #### L [id number] ####Tax Services Manager: VELMA VALADEZ ([phone])[address] Basophils/100 WBC (Bld) 0.2 % Normal 0.0-2.0 [facility] Comment on above: Performed By: #### L [id number] ####Tax Services Manager: VELMA [phone])[facility])[address] [place] [address] Eosinophils (Bld) [#/Vol] 0.1 10*3/uL Normal 0.0-0.5 [facility] Comment on above: Performed By: #### L [id number] ####Tax Services Manager: VELMA VALADEZ ([phone])[facility])[address] [place] [address] Eosinophils/100 WBC (Bld) 1.4 % Normal 0.0-6.0 [facility] Comment on above: Performed By: #### L [id number] ####Tax Services Manager: VELMA VALADEZ ([phone])[address] Erythrocyte distribution width (RBC) [Ratio] 19.3 % High 11.5-15.0 [facility] Comment on above: Performed By: #### L [id number] ####Tax Services Manager: VELMA VALADEZ ([phone])[facility])[address] [place] [address] Hematocrit (Bld) [Volume fraction] 33.0 % Low 35.0-47.0 [facility] Comment on above: Performed By: #### L [id number] ####Tax Services Manager: VELMA VALADEZ ([phone])[address] Hemoglobin (Bld) [Mass/Vol] 10.0 g/dL Low 11.7-16.0 [facility] Comment on above: Performed By: #### L [id number] ####Tax Services Manager: VELMA VALADEZ ([phone])[facility])[address] [place] [address] IMMATURE GRANS % 0.5 % Normal 0.0-2.0 [facility] Comment on above: Performed By: #### L [id number] ####Tax Services Manager: VELMA VALADEZ ([phone])[address] IMMATURE GRANS ABSOLUTE 0.0 10*3/uL Normal <0.1 [facility] Comment on above: Performed By: #### L [id number] ####Tax Services Manager: VELMA VALADEZ ([phone])[facility])[address] [place] [address] Lymphocytes (Bld) [#/Vol] 1.0 10*3/uL Normal 1.0-4.3 [facility] Comment on above: Performed By: #### L [id number] ####Tax Services Manager: VELMA VALADEZ ([phone])[facility])[address] [place] [address] Lymphocytes/100 WBC (Bld) 17.7 % Normal 15.0-45.0 [facility] Comment on above: Performed By: #### L [id number] ####Tax Services Manager: VELMA VALADEZ ([phone])[facility])[address] [place] [address] MCH (RBC) [Entitic mass] 25.8 pg Low 26.0-34.0 [facility] Comment on above: Performed By: #### L [id number] ####Tax Services Manager: VELMA VALADEZ ([phone])[facility])[address] [place] [address] MCHC 30.3 % Low 30.5-36.0 [facility] Comment on above: Performed By: #### L [id number] ####Tax Services Manager: VELMA VALADEZ ([phone])[facility])[address] [place] [address] MCV (RBC) [Entitic vol] 85.1 fL Normal 77.0-99.0 [facility] Comment on above: Performed By: #### L [id number] ####Tax Services Manager: VELMA VALADEZ ([phone])[facility])[address] [place] [address] Monocytes (Bld) [#/Vol] 0.5 10*3/uL Normal 0.0-0.9 [facility] Comment on above: Performed By: #### L [id number] ####Tax Services Manager: VELMA VALADEZ ([phone])[facility])[address] [place] [address] Monocytes/100 WBC (Bld) 9.5 % Normal 5.0-13.0 [facility] Comment on above: Performed By: #### L [id number] ####Tax Services Manager: VELMA VALADEZ ([phone])[facility] ([facility])[address] [place] [address] NEUTROPHILS ABSOLUTE 3.9 10*3/uL Normal 1.8-7.5 [facility] Comment on above: Performed By: #### L [id number] ####Tax Services Manager: VELMA VALADEZ ([phone])[facility] ([facility])[address] [place] [address] Neutrophils/100 WBC (Bld) 70.7 % Normal 38.0-82.0 [facility] Comment on above: Performed By: #### L [id number] ####Tax Services Manager: VELMA VALADEZ ([phone])[facility] ([facility])[address] [place] [address] NRBC 0.0 /100 WBCs Normal 0.0-2.0 [facility] Comment on above: Performed By: #### L [id number] ####Tax Services Manager: VELMA VALADEZ ([phone])[facility] ([facility])[address] [place] [address] Platelet mean volume (Bld) [Entitic vol] 9.8 fL Normal 9.0-12.7 [facility] Comment on above: Performed By: #### L [id number] ####Tax Services Manager: VELMA VALADEZ ([phone])[facility] ([facility])[address] [place] [address] Platelets (Bld) [#/Vol] 280 10*3/uL Normal 140-440 [facility] Comment on above: Performed By: #### L [id number] ####Tax Services Manager: VELMA VALADEZ ([phone])[facility] [place] [address] RBC (Bld) [#/Vol] 3.88 10*6/uL Normal 3.80-5.20 [facility] Comment on above: Performed By: #### L [id number] ####Tax Services Manager: VELMA VALADEZ ([phone])[facility] ([facility])[address] [place] [address] WBC (Bld) [#/Vol] 5.6 10*3/uL Normal 3.6-10.7 [facility] Comment on above: Performed By: #### L [id number] ####Tax Services Manager: VELMA VALADEZ ([phone])[facility] ([facility])[address] [place] [address] COMPREHENSIVE METABOLIC PANE Gilberto 08-04-2024 Albumin [Mass/Vol] 2.3 g/dL Low 3.4-4.8 [facility] Comment on above: Performed By: #### L [id number] ####Tax Services Manager: VELMA VALADEZ ([phone])[facility] ([facility])[address] [place] [address] ALP [Catalytic activity/Vol] 68 U/L Normal 40-150 [facility] Comment on above: Performed By: #### L AB17 ####Tax Services Manager: VELMA VALADEZ ([phone])[facility])[address] [place] [address] ALT [Catalytic activity/Vol] 26 U/L Normal <30 [facility] Comment on above: Performed By: #### L AB17 ####Tax Services Manager: VELMA VALADEZ ([phone])[facility] ([facility])[address] [place] [address] Anion gap [Moles/Vol] 6 mmol/L Normal 3-13 [facility] Comment on above: Performed By: #### L AB17 ####Tax Services Manager: VELMA VALADEZ ([phone])[facility] ([facility])[address] [place] [address] AST [Catalytic activity/Vol] 25 U/L Normal <34 [facility] Comment on above: Performed By: #### L AB17 ####Tax Services Manager: VELMA VALADEZ ([phone])[facility])[address] [place] [address] Bilirubin [Mass/Vol] 0.5 mg/dL Normal <1.2 [facility] Comment on above: Performed By: #### L AB17 ####Tax Services Manager: VELMA VALADEZ ([phone])[facility])[address] [place] [address] Calcium [Mass/Vol] 8.2 mg/dL Low 8.8-10.0 [facility] Comment on above: Performed By: #### L AB17 ####Tax Services Manager: VELMA VALADEZ ([phone])[facility])[address] [place] [address] Chloride [Moles/Vol] 112 mmol/L High 98-107 [facility] Comment on above: Performed By: #### L AB17 ####Tax Services Manager: VELMA VALADEZ ([phone])[facility])[address] [place] [address] CO2 [Moles/Vol] 21 mmol/L Low 23-31 [facility] Comment on above: Performed By: #### L AB17 ####Tax Services Manager: VELMA VALADEZ ([phone])[facility])[address] [place] [address] Creatinine [Mass/Vol] 1.13 mg/dL High 0.57-1.11 [facility] Comment on above: Performed By: #### L AB17 ####Tax Services Manager: VELMA VALADEZ ([phone])[facility])[address] [place] [address] GLOMERULAR FILTRATION RATE ML/MIN/1.73 SQ M.PREDICTED 48.1 mL/min/1.73m*2 Low >60.0 [facility] Comment on above: Result Comment: Calc ulation based on the Chronic Kidney Disease Epidemiology Collaboration (CKD-EPI) equation refit without adjustment for race Performed By: #### L AB17 ####Tax Services Manager: VELMA VALADEZ ([phone])[facility])[address] [place] [address] Glucose [Mass/Vol] 153 mg/dL High 82-115 [facility] Comment on above: Performed By: #### L AB17 ####Tax Services Manager: VELMA VALADEZ ([phone])[facility])[address] [place] [address] Potassium [Moles/Vol] 3.9 mmol/L Normal 3.5-5.1 [facility] Comment on above: Result Comment: [facility] potassium values may be up to 0.5 mmol/L lower than serum values. Performed By: #### L AB17 ####Tax Services Manager: VELMA VALADEZ ([phone])[facility])[address] [place] [address] Protein [Mass/Vol] 5.2 g/dL Low 6.4-8.3 [facility] Comment on above: Performed By: #### L AB17 ####Tax Services Manager: VELMA VALADEZ ([phone])[facility])[address] [place] [address] Sodium [Moles/Vol] 139 mmol/L Normal 136-145 [facility] Comment on above: Performed By: #### L AB17 ####Tax Services Manager: VELMA VALADEZ ([phone])[facility])[address] [place] [address] Urea nitrogen [Mass/Vol] 26 mg/dL High 9-23 [facility] Comment on above: Performed By: #### L AB17 ####Tax Services Manager: VELMA VALADEZ ([phone])[facility])[address] [place] [address] Comprehensive metabolic 1998 panelon 08-04-2024 Albumin [Mass/Vol] 2.3 g/dL Low 3.4 - 4.8 g/dL [facility] ALP [Catalytic activity/Vol] 68 U/L 40 - 150 U/L [facility] ALT [Catalytic activity/Vol] 26 U/L NINF - 30 U/L [facility] Anion gap [Moles/Vol] 6 mmol/L 3 - 13 mmol/L [facility] AST [Catalytic activity/Vol] [facility] U[facility]L [facility] Bilirubin [Mass/Vol] 0.5 mg/dL NINF - 1.2 mg/dL [facility] Calcium [Mass/Vol] 8.2 mg/dL Low 8.8 - 10. 0 mg/dL [facility] Chloride [Moles/Vol] 112 mmol/L High 98 - 10 7 mmol/L [facility] CO2 [Moles/Vol] 21 mmol/L Low 23 - 31 mmol/L [facility] Creatinine [Mass/Vol] 1.13 mg/dL High 0.57 - 1.11 mg/dL [facility] GFR/1.73 sq M.predicted (S/P/Bld) [Vol rate/Area] 48.1 mL/min Low - PINF [facility] Comment on above: Calculation based on the Chronic Kidney Disease Epidemiology Collaboration (CKD-EPI) equation refit without adjustment for race Glucose [Mass/Vol] 153 mg/dL High 82 - 115 mg/dL [facility] Interpretation and review of laboratory results Abnormal [facility] Potassium [Moles/Vol] 3.9 mmol/L 3.5 - 5.1 mmol/L [facility] Comment on above: Plasma potassium chris ues may be up to 0.5 mmol/L lower than serum values. Protein [Mass/Vol] 5.2 g/dL Low 6.4 - 8.3 g/dL [facility] Sodium [Moles/Vol] 139 mmol/L 136 - 145 mmol/L [facility] Urea nitrogen [Mass/Vol] 26 mg/dL High 9 - 23 mg/dL [facility] Nursing Noteon 08-04-2024 Nursing Note Bedside swallow completed. Pt passed and tolerated well tolerated well. Normal [facility] Progress Noteon 08-04-2024 Progress Note Normal [facility] 30on 08-03-2024 30 Normal [facility] 30 Normal [facility] 30 Normal [facility] [id number] 08-03-2024 [id number] Normal [facility] BASIC METABOLIC PANELon 07-18 Anion gap [Moles/Vol] 6 mmol/L Normal 3-13 [facility] Comment on above: Performed By: #### L AB15 ####Tax Services Manager: VELMA VALADEZ ([phone])[facility] [place] [address] Calcium [Mass/Vol] 8.5 mg/dL Low 8.8-10.0 [facility] Comment on above: Performed By: #### L AB15 ####Tax Services Manager: VELMA VALADEZ ([phone])[facility])[address] [place] [address] Chloride [Moles/Vol] 105 mmol/L Normal 98-107 [facility] Comment on above: Performed By: #### L AB15 ####Tax Services Manager: VELMA VALADEZ ([phone])[facility])[address] [place] [address] CO2 [Moles/Vol] 27 mmol/L Normal 23-31 [facility] Comment on above: Performed By: #### L AB15 ####Tax Services Manager: VELMA VALADEZ ([phone])[facility] ([facility])[address] [place] [address] Creatinine [Mass/Vol] 1.18 mg/dL High 0.57-1.11 [facility] Comment on above: Performed By: #### L AB15 ####Tax Services Manager: VELMA VALADEZ ([phone])[facility] ([facility])[address] [place] [address] GLOMERULAR FILTRATION RATE ML/MIN/1.73 SQ M.PREDICTED 45.6 mL/min/1.73m*2 Low >60.0 [facility] Comment on above: Result Comment: Calc ulation based on the Chronic Kidney Disease Epidemiology Collaboration (CKD-EPI) equation refit without adjustment for race Performed By: #### L AB15 ####Tax Services Manager: VELMA VALADEZ ([phone])[facility] [place] [address] Glucose [Mass/Vol] 100 mg/dL Normal 82-115 [facility] Comment on above: Performed By: #### L AB15 ####Tax Services Manager: VELMA VALADEZ ([phone])[facility])[address] [place] [address] Potassium [Moles/Vol] 4.7 mmol/L Normal 3.5-5.1 [facility] Comment on above: Result Comment: [facility] potassium values may be up to 0.5 mmol/L lower than serum values. Performed By: #### L AB15 ####Tax Services Manager: VELMA VALADEZ ([phone])[facility] ([facility])[address] [place] [address] Sodium [Moles/Vol] 138 mmol/L Normal 136-145 [facility] Comment on above: Performed By: #### L AB15 ####Tax Services Manager: VELMA VALADEZ ([phone])[facility] ([facility])[address] [place] [address] Urea nitrogen [Mass/Vol] 33 mg/dL High 9-23 [facility] Comment on above: Performed By: #### L AB15 ####Tax Services Manager: VELMA VALADEZ ([phone])[facility])[address] [place] [address] Basic metabolic 1998 panelOr dered By: Juni Millard on 08-03-2024 Anion gap [Moles/Vol] 6 mmol/L 3 - 13 mmol/L [facility] Calcium [Mass/Vol] 8.5 mg/dL Low 8.8 - 10. 0 mg/dL [facility] Chloride [Moles/Vol] 105 mmol/L 98 - 10 7 mmol/L [facility] CO2 [Moles/Vol] 27 mmol/L 23 - 31 mmol/L [facility] Creatinine [Mass/Vol] 1.18 mg/dL High 0.57 - 1.11 mg/dL [facility] GFR/1.73 sq M.predicted (S/P/Bld) [Vol rate/Area] 45.6 mL/min Low - PINF [facility] Comment on above: Calculation based on the Chronic Kidney Disease Epidemiology Collaboration (CKD-EPI) equation refit without adjustment for race Glucose [Mass/Vol] 100 mg/dL 82 - 115 mg/dL [facility] Interpretation and review of laboratory results Abnormal [facility] Potassium [Moles/Vol] 4.7 mmol/L 3.5 - 5.1 mmol/L [facility] Comment on above: Plasma potassium chris ues may be up to 0.5 mmol/L lower than serum values. Sodium [Moles/Vol] 138 mmol/L 136 - 145 mmol/L [facility] Urea nitrogen [Mass/Vol] 33 mg/dL High 9 - 23 mg/dL [facility] CBC W Auto Differential pane l (Bld)Ordered By: Christin Mayes on 08-03-2024 Erythrocyte distribution width (RBC) [Ratio] 19.4 % High 11.5 - 15.0 % [facility] Hematocrit (Bld) [Volume fraction] 38.7 % 35.0 - 47.0 % [facility] Hemoglobin (Bld) [Mass/Vol] 12.1 g/dL 11.7 - 16.0 g/dL [facility] MCH (RBC) [Entitic mass] 26 pg 26.0 - 34.0 pg [facility] MCHC (RBC) [Mass/Vol] 31.3 % 30.5 - 36.0 % [facility] MCV (RBC) [Entitic vol] 83.2 fL 77.0 - 99.0 fL [facility] Nucleated RBC/100 WBC (Bld) [Ratio] 0 % [facility] Platelet mean volume (Bld) [Entitic vol] 9.8 fL 9.0 - 12.7 fL [facility] Comment on above: MPV is a calculated measurement using platelet volume ratio Platelets (Bld) [#/Vol] 303 10*3/uL 140 - 440 10*3/uL [facility] RBC (Bld) [#/Vol] 4.65 10*6/uL 3.80 - 5.2 0 10*6/uL [facility] WBC (Bld) [#/Vol] 9.1 10*3/uL 3.6 - 10.7 10*3/uL [facility] CBC WITH AUTO DIFFERENTIALon 08-03-2024 Erythrocyte distribution width (RBC) [Ratio] 19.4 % High 11.5-15.0 [facility] Comment on above: Performed By: #### L [id number], [id number] ####Tax Services Manager: VELMA VALADEZ ([phone])[facility] ([facility])[address] [place] [address] Hematocrit (Bld) [Volume fraction] 38.7 % Normal 35.0-47.0 [facility] Comment on above: Performed By: #### L [id number], [id number] ####Tax Services Manager: VELMA VALADEZ ([phone])[facility]ITALSim[facility] ([facility])[address] [place] [address] Hemoglobin (Bld) [Mass/Vol] 12.1 g/dL Normal 11.7-16.0 [facility] Comment on above: Performed By: #### L [id number], [id number] ####Tax Services Manager: VELMA VALADEZ ([phone])[facility]ITALSim[facility] ([facility])[address] [place] [address] MCH (RBC) [Entitic mass] 26.0 pg Normal 26.0-34.0 [facility] Comment on above: Performed By: #### L [id number], [id number] ####Tax Services Manager: VELMA VALADEZ ([phone])[facility] ([facility])[address] [place] [address] MCHC 31.3 % Normal 30.5-36.0 [facility] Comment on above: Performed By: #### L [id number], [id number] ####Tax Services Manager: VELMA VALADEZ ([phone])[facility]PITALSim[facility] ([facility])[address] MCV (RBC) [Entitic vol] 83.2 fL Normal 77.0-99.0 [facility] Comment on above: Performed By: #### L [id number], [id number] ####Tax Services Manager: VELMA VALADEZ ([phone])[facility]PITALSim[facility] ([facility])[address] [place] [address] NRBC 0.0 /100 WBCs Normal 0.0-2.0 [facility] Comment on above: Performed By: #### L [id number], [id number] ####Tax Services Manager: VELMA VALADEZ ([phone])[facility]ITALSim[facility] ([facility])[address] [place] [address] Platelet mean volume (Bld) [Entitic vol] 9.8 fL Normal 9.0-12.7 [facility] Comment on above: Result Comment: MPV is a calculated measurement using platelet volume ratio Performed By: #### L [id number], [id number] ####Tax Services Manager: VELMA VALADEZ ([phone])[facility]ITALSim[facility] ([facility])[address] [place] [address] Platelets (Bld) [#/Vol] 303 10*3/uL Normal 140-440 [facility] Comment on above: Performed By: #### [place] [id number], [id number] ####Tax Services Manager: VELMA VALADEZ ([phone])[facility] HOSPITALSimran [facility] ([facility])[address] [place] [address] [place] RBC (Bld) [#/Vol] 4.65 10*6/uL Normal 3.80-5.20 [facility] Comment on above: Performed By: #### [place] [id number], [id number] ####Tax Services Manager: VELMA VALADEZ ([phone])[facility]OSPITALSim[facility] ([facility])[address] [place] [address] WBC (Bld) [#/Vol] 9.1 10*3/uL Normal 3.6-10.7 [facility] Comment on above: Performed By: #### L [id number], [id number] ####Tax Services Manager: VELMA VALADEZ ([phone])[facility]PITALSim[facility] ([facility])[address] [place] [address] COMPREHENSIVE METABOLIC PANE Gilberto 08-03-2024 Albumin [Mass/Vol] 2.8 g/dL Low 3.4-4.8 [facility] Comment on above: Performed By: #### [place] AB17, [id number], LAB99 ####Tax Services Manager: VELMA VALADEZ ([phone])[facility] HOSPITALSimran [facility] ([facility])[address] ALP [Catalytic activity/Vol] 82 U/L Normal 40-150 [facility] Comment on above: Performed By: #### [place] AB17, [id number], LAB99 ####Tax Services Manager: VELMA VALADEZ ([phone])[facility]OSPITALSim[facility] ([facility])[address] ALT [Catalytic activity/Vol] 26 U/L Normal <30 [facility] Comment on above: Performed By: #### [place] REIS17, [id number], LAB99 ####Tax Services Manager: EVLMA VALADEZ ([phone])[facility]OSPITALSim[facility] ([facility])[address] [place] [address] Anion gap [Moles/Vol] 9 mmol/L Normal 3-13 [facility] Comment on above: Performed By: #### [place] REIS17, [id number], LAB99 ####Tax Services Manager: VELMA VALADEZ ([phone])[facility]OSPITALSimran [facility] ([facility])[address] AST [Catalytic activity/Vol] 36 U/L High <34 [facility] Comment on above: Result Comment: TCSi gnificant interference from hemolysis. Result integrity compromised. Interpret with caution. Performed By: #### [place] AB17, [id number], LAB99 ####Tax Services Manager: VELMA VALADEZ ([phone])[place] [facility] [facility]ITAL[facility] ADAMES RITTMAN (SWRLAB)[address] Bilirubin [Mass/Vol] 0.7 mg/dL Normal <1.2 [facility] Comment on above: Performed By: #### Weston AB17, [id number], LAB99 ####Tax Services Manager: VELMA VALADEZ ([phone])[facility] ROSANGELA RITTMAN (SWRLAB)[address] [place] [address] [place] Calcium [Mass/Vol] 9.0 mg/dL Normal 8.8-10.0 [facility] Comment on above: Performed By: #### L AB17, [id number], LAB99 ####Tax Services Manager: VELMA VALADEZ ([phone])[facility] ROSANGELA RITTMAN (SWRLAB)[address] [place] [address] [place] Chloride [Moles/Vol] 109 mmol/L High 98-107 [facility] Comment on above: Performed By: #### L AB17, [id number], LAB99 ####Tax Services Manager: VELMA VALADEZ ([phone])[facility]ITALSim[facility] SANCHEZROSANGELA RITTMAN (SWRLAB)[address] CO2 [Moles/Vol] 21 mmol/L Low 23-31 [facility] Comment on above: Performed By: #### L AB17, [id number], LAB99 ####Tax Services Manager: VELMA VALADEZ ([phone])[facility]ITAL[facility] SANCHEZROSANGELA RITTMAN (SWRLAB)[address] [place] [address] [place] Creatinine [Mass/Vol] 1.30 mg/dL High 0.57-1.11 [facility] Comment on above: Performed By: #### L AB17, [id number], LAB99 ####Tax Services Manager: VELMA VALADEZ ([phone])[facility]ITAL[facility] ADAMES RITTMAN (SWRLAB)[address] GLOMERULAR FILTRATION RATE ML/MIN/1.73 SQ M.PREDICTED 40.6 mL/min/1.73m*2 Low >60.0 [facility] Comment on above: Result Comment: Calc ulation based on the Chronic Kidney Disease Epidemiology Collaboration (CKD-EPI) equation refit without adjustment for race Performed By: #### L AB17, [id number], LAB99 ####Tax Services Manager: VELMA VALADEZ ([phone])[facility]ITALSim[facility] SANCHEZROSANGELA RITTMAN (SWRLAB)[address] Glucose [Mass/Vol] 103 mg/dL Normal 82-115 [facility] Comment on above: Performed By: #### L AB17, [id number], LAB99 ####Tax Services Manager: VELMA VALADEZ ([phone])[facility]ITALSim[facility] ADAMES RITTMAN (SWRLAB)[address] [place] [address] Potassium [Moles/Vol] 5.9 mmol/L High 3.5-5.1 [facility] Comment on above: Result Comment: TCSi gnificant interference from hemolysis. Result integrity compromised. Interpret with caution. Performed By: #### L AB17, [id number], LAB99 ####Tax Services Manager: VELMA VALADEZ ([phone])[facility]ITALSim[facility] VERDNITMAN (SWRLAB)[address] [place] [address] Protein [Mass/Vol] 6.7 g/dL Normal 6.4-8.3 [facility] Comment on above: Result Comment: TCPo tential interference from hemolysis Performed By: #### Weston AB17, [id number], LAB99 ####Tax Services Manager: VELMA VALADEZ ([phone])[facility]ITALSim[facility] ADAMES RITTMAN (SWRLAB)[address] [place] [address] Sodium [Moles/Vol] 139 mmol/L Normal 136-145 [facility] Comment on above: Performed By: #### Weston REIS17, [id number], LAB99 ####Tax Services Manager: VELMA VALADEZ ([phone])[facility]ITALSim[facility] ADAMES RITTMAN (SWRLAB)[address] [place] [address] Urea nitrogen [Mass/Vol] 34 mg/dL High 9-23 [facility] Comment on above: Performed By: #### L AB17, [id number], LAB99 ####Tax Services Manager: VELMA VALADEZ ([phone])[facility]ITALSim[facility] ADAMES RITTMAN (SWRLAB)[address] [place] [address] CT ABDOMEN PELVIS WO IV CONT RASTon 08-03-2024 CT ABDOMEN PELVIS WO IV CONTRAST Normal [facility] CT Abdomen and Pelvis WO con traston 08-03-2024 1. Extensive colonic diverticulosis without evidence of diverticulitis 2. Consolidation in the medial left lower lobe, possibly pneumonia 3. No bowel dilatation Report Dictated on Electronically Signed By: Ming Fry MD Electronically Signed Date/Time: 08/03/2024 4:05 AM [facility] [place] [facility] Patient Name: MEL CARVER RD : 1940 [facility]#: [id number] Exam Date/Time: 08/03/2024 03:05 Procedure: CT ABDOMEN [...] Lymph nodes: Unremarkable. No enlarged lymph nodes. [facility] Ming Fry MD - 08/03/2024 Patient Name: MEL POP : 1940 [facility]#: [id number] Exam Date/Time: 08/03/2024 03:05 Procedure: CT ABDOMEN [...] Electronically Signed Date/Time: 08/03/2024 4:05 AM EST [facility] Radiology Study observation (narrative) Inna Shannon alth CT Abdomen and Pelvis WO con trastOrdered By: Ming Fry on 08-03-2024 [facility] [employer] Work Phone: Comprehensive metabolic 1998 panelon 08-03-2024 Albumin [Mass/Vol] 2.8 g/dL Low 3.4 - 4.8 g/dL [facility] [employer] ALP [Catalytic activity/Vol] 82 U/L 40 - 150 U/L [facility] [employer] ALT [Catalytic activity/Vol] [facility] U[facility] Anion gap [Moles/Vol] 9 mmol/L 3 - 13 mmol/L [facility] [employer] AST [Catalytic activity/Vol] 36 U/L [facility]L [facility] [employer] Comment on above: TC Significant interference from hemolysis. Result integrity compromised. Interpret with caution. Bilirubin [Mass/Vol] 0.7 mg/dL NINF - 1.2 mg/dL [facility] [employer] Calcium [Mass/Vol] 9 mg/dL 8.8 - 10. 0 mg/dL [facility] [employer] Chloride [Moles/Vol] 109 mmol/L High 98 - 10 7 mmol/L [facility] CO2 [Moles/Vol] 21 mmol/L Low 23 - 31 mmol/L [facility] Creatinine [Mass/Vol] 1.3 mg/dL High 0.57 - 1.11 mg/dL [facility] [employer] GFR/1.73 sq M.predicted (S/P/Bld) [Vol rate/Area] 40.6 mL/min Low - PINF [facility] Comment on above: Calculation based on the Chronic Kidney Disease Epidemiology Collaboration (CKD-EPI) equation refit without adjustment for race Glucose [Mass/Vol] 103 mg/dL 82 - 115 mg/dL [facility] Interpretation and review of laboratory results Abnormal [facility] Potassium [Moles/Vol] 5.9 mmol/L High 3.5 - 5.1 mmol/L [facility] Comment on above: TC Significant interference from hemolysis. Result integrity compromised. Interpret with caution. Protein [Mass/Vol] 6.7 g/dL 6.4 - 8.3 g/dL [facility] Comment on above: TC Potential interference from hemolysis Sodium [Moles/Vol] 139 mmol/L 136 - 145 mmol/L [facility] Urea nitrogen [Mass/Vol] 34 mg/dL High 9 - 23 mg/dL [facility] ED Nursing Noteon 08-03-2024 ED Nursing Note Pt placed in roundtrip Normal [facility] ED Nursing Note ED CT and ED xray notified that patient is ready Normal [facility] ED Provider Noteon ED Provider Note Normal [facility] GASTROINTESTINAL PCR PANELon 08-03-2024 GASTROINTESTINAL PCR PANEL Normal [facility] Comment on above: Performed By: #### L [id number] ####Tax Services Manager: VELMA VALADEZ ([phone])[facility] ([address] Gastrointestinal pathogens p masoud OXANA+probe (Stl)Ordered By: Maximus Dimas on 08-03-2024 Adenovirus F 40/41 Not detected Not Detected [facility] Astrovirus Not detected Not Detected [facility] Campylobacter Not detected Not Detected [facility] Cryptosporidium Not detected Not Detected [facility] Cyclospora cayetanensis Not detected Not Detected [facility] Entamoeba histolytica Not detected Not Detected [facility] Enterotoxigenic E coli (ETEC) Not detected Not Detected [facility] Giardia lamblia Not detected Not Detected [facility] Interpretation and review of laboratory results Abnormal [facility] Norovirus GI/GII Detected Abnormal Not Detected [facility] Plesiomonas shigelloides Not detected Not Detected [facility] Rotavirus A Not detected Not Detected [facility] Salmonella Not detected Not Detected [facility] Sapovirus Not detected Not Detected [facility] Shiga toxin-producing E coli (STEC) Not detected Not Detected [facility] Shigella/Enteroinvasive E coli (EIEC) Not detected Not Detected [facility] Vibrio cholerae Not detected Not Detected [facility] Vibrio species Not detected Not Detected [facility] Yersinia enterocolitica Not detected Not Detected [facility] A positive Norovirus result on the Film Array GI panel should be interpreted in the context of the patient's history and clinical picture. If results are not consistent, result should be confirmed with a Norovirus specific assay. Methodology: Multiplex PCR [facility] LACTIC ACID WITH REFLEXon Lactate [Moles/Vol] 1.9 mmol/L Normal 0.5-2.2 [facility] Comment on above: Performed By: #### L [id number] ####Tax Services Manager: VELMA VALADEZ ([phone])[facility] ([facility])[address] [place] [address] LIPASEon 08-03-2024 Lipase [Catalytic activity/Vol] 8 U/L Normal <55 [facility] Comment on above: Performed By: #### L AB17, [id number], LAB99 ####Tax Services Manager: VELMA VALADEZ ([phone])[facility]ANGELACATHOLIC HEALTHCAR[facility] (SWRLAB)[address] [place] [address] Laboratory - Chemistry and C hemistry - challengeon 08-03-2024 Lactate [Moles/Vol] 1.9 mmol/L 0.5 - 2. 2 mmol/L [facility] Anion gap (Bld) [Moles/Vol] 8 mmol/L 3.00 - 13.00 [facility] Calcium.ionized (Bld) [Moles/Vol] 4.7 mg/dl 4.30 - 5.20 mg/dl [facility] Chloride [Moles/Vol] 107 mmol/L 98 - 11 4 mmol/L [facility] CO2 [Moles/Vol] 23 mmol/L 21 - 29 mmol/L [facility] Creatinine [Mass/Vol] 1.3 mg/dL 0.6 - 1.3 mg/dL [facility] GFR/1.73 sq M.predicted CKD-EPI (S/P/Bld) [Vol rate/Area] 40.6 [facility] Comment on above: KDIGO guidelines pro [...] 118 mg/dL High 70 - 100 mg/dL [facility] Potassium [Moles/Vol] 4.3 mmol/L 3.4 - 5.1 mmol/L [facility] Sodium [Moles/Vol] 138 mmol/L 133 - 145 mmol/L [facility] Urea (Bld) [Mass/Vol] 33 mg/dL High 4 - 22 mg/dL [facility] Lipase [Catalytic activity/Vol] 8 U/L NINF - 55 U/L [facility] Magnesium [Mass/Vol] 1.9 mg/dL 1.6 - 2 .6 mg/dL [facility] Laboratory - Microbiology an d Antimicrobial susceptibilityon 08-03-2024 FLUAV RNA OXANA+probe Ql (Resp) Not detected Not Detected [facility] FLUBV RNA OXANA+probe Ql (Resp) Not detected Not Detected [facility] RSV RNA OXANA+probe Ql (Resp) Not detected Not Detected [facility] SARS-CoV-2 (COVID-19) RNA OXANA+probe Ql (Resp) Not detected Not Detected [facility] SARS-CoV-2 (COVID-19) RNA OXANA+probe Ql (Unsp spec) Methodology: real-time, RT-PCR The SARS-CoV-2, Flu A/B, and RSV Combo assay is intended for in vitro diagnostic use under the FDA Emergency Use Authorization (EUA). This test has not been FDA cleared or approved. In compliance with this authorization, please visit www.fda.gov/media/34254 5/download or www.fda.gov/media/05207 6/download to access the applicable information sheets. [facility] MAGNESIUMon 08-03-2024 Magnesium [Mass/Vol] 1.9 mg/dL Normal 1.6-2.6 [facility] Comment on above: Result Comment: BUBBA R COMMENTS:Higher values can be expected in females during menses. Performed By: #### L AB17, [id number], LAB99 ####Tax Services Manager: VELMA VALADEZ ([phone])[facility] ROSANGELA RITTMAN (SWRLAB)[address] [place] [address] [place] MANUAL DIFFERENTIALon 2024 BASOPHILS (10*3/UL) IN BLOOD BY MANUAL COUNT 0.0 10*3/uL Normal 0.0-0.2 [facility] Comment on above: Performed By: #### L [id number], [id number] ####Tax Services Manager: VELMA VALADEZ ([phone])[facility] ROSANGELA RITTMAN (SWRLAB)[address] [place] [address] [place] BASOPHILS TOTAL PER COUNTED LEUKOCYTES BY MANUAL COUNT 0 Normal [facility] Comment on above: Performed By: #### L [id number], [id number] ####Tax Services Manager: VELMA VALADEZ ([phone])[facility] ROSANGELA RITTMAN (SWRLAB)[address] [place] [address] [place] BASOPHILS/100 LEUKOCYTES IN BLOOD BY MANUAL COUNT 0 % Normal 0-2 [facility] Comment on above: Performed By: #### L [id number], [id number] ####Tax Services Manager: VELMA VALADEZ ([phone])[facility]PITALSim[facility] ADAMES RITTMAN (SWRLAB)[address] [place] [address] [place] CELLS COUNTED TOTAL (#) IN BLOOD 100 Normal [facility] Comment on above: Performed By: #### L [id number], [id number] ####Tax Services Manager: VELMA VALADEZ ([phone])[facility] ROSANGELA RITTMAN (SWRLAB)[address] [place] [address] [place] DIFFERENTIAL METHOD Automated differenti al reported after manual slide review Normal [facility] Comment on above: Performed By: #### L [id number], [id number] ####Tax Services Manager: VELMA VALADEZ ([phone])[facility]ITALSim[facility] SANCHEZROSANGELA RITTMAN (SWRLAB)[address] [place] [address] [place] EOSINOPHILS (10*3/UL) IN BLOOD BY MANUAL COUNT 0.1 10*3/uL Normal 0.0-0.5 [facility] Comment on above: Performed By: #### L [id number], [id number] ####Tax Services Manager: VELMA VALADEZ ([phone])[facility] ROSANGELA RITTMAN (SWRLAB)[address] [place] [address] [place] EOSINOPHILS TOTAL PER COUNTED LEUKOCYTES BY MANUAL COUNT 1 Normal 0-1 [facility] Comment on above: Performed By: #### L [id number], [id number] ####Tax Services Manager: VELMA VALADEZ ([phone])[facility] ROSANGELA RITTMAN (SWRLAB)[address] [place] [address] [place] EOSINOPHILS/100 LEUKOCYTES IN BLOOD BY MANUAL COUNT 1 % Normal 0-6 [facility] Comment on above: Performed By: #### L [id number], [id number] ####Tax Services Manager: VELMA VALADEZ ([phone])[facility] ROSANGELA RITTMAN (SWRLAB)[address] [place] [address] [place] LEUKOCYTE MORPHOLOGY FINDING IN BLOOD Normal Normal [facility] Comment on above: Performed By: #### L [id number], [id number] ####Tax Services Manager: VELMA VALADEZ ([phone])[facility] ROSANGELA RITTMAN (SWRLAB)[address] [place] [address] [place] LEUKOCYTES (10*3/UL) NUCLEATED ERYTHROCYTE ADJUST 9.1 10*3/uL Normal 3.6-10.7 [facility] Comment on above: Performed By: #### L [id number], [id number] ####Tax Services Manager: VELMA VALADEZ ([phone])[facility] ROSANGELA RITTMAN (SWRLAB)[address] [place] [address] [place] LYMPHOCYTES (10*3/UL) IN BLOOD BY MANUAL COUNT 0.5 10*3/uL Low 1.0-4.3 [facility] Comment on above: Performed By: #### L [id number], [id number] ####Tax Services Manager: VELMA VALADEZ ([phone])[facility] ROSANGELA RITTMAN (SWRLAB)[address] [place] [address] [place] LYMPHOCYTES TOTAL PER COUNTED LEUKOCYTES BY MANUAL COUNT 5 Normal [facility] Comment on above: Performed By: #### L [id number], [id number] ####Tax Services Manager: VELMA VALADEZ ([phone])[facility] ROSANGELA RITTMAN (SWRLAB)[address] [place] [address] [place] LYMPHOCYTES/100 LEUKOCYTES IN BLOOD BY MANUAL COUNT 5 % Low 15-45 [facility] Comment on above: Performed By: #### L [id number], [id number] ####Tax Services Manager: VELMA VALADEZ ([phone])[facility] ROSANGELA RITTMAN (SWRLAB)[address] [place] [address] [place] MONOCYTES (10*3/UL) IN BLOOD BY MANUAL COUNT 0.5 10*3/uL Normal 0.0-0.9 [facility] Comment on above: Performed By: #### L [id number], [id number] ####Tax Services Manager: VELMA VALADEZ ([phone])[facility] ROSANGELA RITTMAN (SWRLAB)[address] [place] [address] [place] MONOCYTES TOTAL PER COUNTED LEUKOCYTES BY MANUAL COUNT 6 Normal [facility] Comment on above: Performed By: #### L [id number], [id number] ####Tax Services Manager: VELMA VALADEZ ([phone])[facility] ROSANGELA RITTMAN (SWRLAB)[address] [place] [address] [place] MONOCYTES/100 LEUKOCYTES IN BLOOD BY MANUAL COUNT 6 % Normal 5-13 [facility] Comment on above: Performed By: #### L [id number], [id number] ####Tax Services Manager: VELMA VALADEZ ([phone])[facility] ROSANGELA RITTMAN (SWRLAB)[address] [place] [address] [place] NEUTROPHILS (SEGS+BANDS) (10*3/UL) BY MANUAL COUNT 7.9 10*3/uL High 1.8-7.0 [facility] Comment on above: Performed By: #### L [id number], [id number] ####Tax Services Manager: VELMA VALADEZ ([phone])[facility] ROSANGELA RITTMAN (SWRLAB)[address] [place] [address] [place] NEUTROPHILS TOTAL PER COUNTED LEUKOCYTES BY MANUAL COUNT 87 Normal [facility] Comment on above: Performed By: #### L [id number], [id number] ####Tax Services Manager: VELMA VALADEZ ([phone])TIFFANYA ROSANGELA RITTMAN (SWRLAB)[address] [place] [address] [place] PLATELET MORPHOLOGY IN BLOOD Normal Normal [facility] Comment on above: Performed By: #### L [id number], [id number] ####Tax Services Manager: VELMA VALADEZ ([phone])[facility] ROSANGELA RITTMAN (SWRLAB)[address] [place] [address] [place] RBC MORPHOLOGY IN BLOOD Normal Normal [facility] Comment on above: Performed By: #### L [id number], [id number] ####Tax Services Manager: VELMA VALADEZ ([phone])TIFFANYA ROSANGELA RITTMAN (SWRLAB)[address] [place] [address] [place] SEGEMENTED NEUTROPHILS/100 LEUKOCYTES BY MANUAL COUNT 87 % High 38-82 [facility] Comment on above: Performed By: #### L [id number], [id number] ####Tax Services Manager: VELMA VALADEZ ([phone])TIFFANYA ROSANGELA RITTMAN (SWRLAB)[address] [place] [address] [place] UNCLASSIFIED CELLS (10*3/UL) IN BLOOD BY MANUAL COUNT 0.1 10*3/uL Normal [facility] Comment on above: Performed By: #### L [id number], [id number] ####Tax Services Manager: VELMA VALADEZ ([phone])[facility] ROSANGELA RITTMAN (SWRLAB)[address] [place] [address] [place] UNCLASSIFIED CELLS/100 LEUKOCYTES IN BLOOD 1.00 % Normal [facility] Comment on above: Performed By: #### L [id number], [id number] ####Tax Services Manager: VELMA VALADEZ ([phone])[facility] ROSANGELA RITTMAN (SWRLAB)[address] [place] [address] Magnesium [Mass/Vol]on 08-03 Higher values can be expected in females during menses. [facility] [employer] Manual differential performe d Ql (Bld)on 08-03-2024 Basophils (Bld) [#/Vol] 0 10*3/uL 0.0 - 0.2 10*3/uL [facility] Basophils Manual 0 [facility] alth Basophils/100 WBC (Bld) 0 % 0 - 2 % [facility] Cells Counted Total (Bld) [#] 100 {cells} [facility] Differential Method Automated differenti al reported after manual slide review [facility] Eosinophils (Bld) [#/Vol] 0.1 10*3/uL 0.0 - 0.5 10*3/uL [facility] Eosinophils Manual 1 0 - 1 [facility] Eosinophils/100 WBC (Bld) 1 % 0 - 6 % [facility] Leukocyte morphology finding Nom (Bld) Normal [facility] Lymphocytes (Bld) [#/Vol] 0.5 10*3/uL Low 1.0 - 4.3 10*3/uL [facility] Lymphocytes Manual 5 [facility] Lymphocytes/100 WBC (Bld) 5 % Low 15 - 45 % [facility] Monocytes (Bld) [#/Vol] 0.5 10*3/uL 0.0 - 0.9 10*3/uL [facility] Monocytes Manual 6 [facility] alth Monocytes/100 WBC (Bld) 6 % 5 - 13 % [facility] Neutrophils (Bld) [#/Vol] 7.9 10*3/uL High 1.8 - 7.0 10*3/uL [facility] Neutrophils Manual 87 [facility] Platelet morphology finding Nom (Bld) Normal [facility] RBC morphology finding Nom (Bld) Normal [facility] Segmented neutrophils/100 WBC (Bld) 87 % High 38 - 82 % [facility] Unclassified Cells % 1 % [facility] Unclassified Cells, Abs. 0.1 10*3/uL [facility] WBC corrected for nucl RBC (Bld) [#/Vol] 9.1 10*3/uL 3.6 - 10.7 10*3/uL [facility] No Panel Informationon 08-03 Interpretation and review of laboratory results Normal [facility] Interpretation and review of laboratory results Abnormal [facility] Performed by: [facility], [address] [place] [address] CLIA ID: [id number] [facility] Interpretation and review of laboratory results Normal [facility] No Panel InformationOrdered By: Christin Mayes on 08-03-2024 Interpretation and review of laboratory results Abnormal [facility] SARS-COV-2, FLU A/B, AND RSV COMBOon 08-03-2024 SARS-CoV-2 (COVID-19) RNA OXANA+probe Ql (Unsp spec) Normal [facility] Comment on above: Performed By: #### L [id number] ####Tax Services Manager: VELMA VALADEZ ([phone])[facility]ELA [facility] (SWRLAB)[address] [place] [address] SARS-CoV-2, Flu A/B, and RSV Comboon 08-03-2024 Interpretation and review of laboratory results Normal [facility] XR Chest Single viewon 08-03 No acute abnormality Report Dictated on Electronically Signed By: Ming Fry MD Electronically Signed Date/Time: 08/03/2024 3:33 AM EST [facility] [employer] Patient Name: MEL CARVER RD : [...] within the right humerus. No acute fracture. [facility] Ming Fry MD - 08/03/2024 Patient Name: MEL POP : 1940 [facility]#: [id number] Exam Date/Time: 08/03/2024 02:53 Procedure: XR CHEST [...] Electronically Signed Date/Time: 08/03/2024 3:33 AM EST [facility] [employer] Radiology Study observation (narrative) [facility] XR Chest Single viewOrdered By: Ming Fry on 08-03-2024 [employer] Work Phone: ANES POSTPROC EVALon 025 ANES POSTPROC EVAL HNO ID: [id number] Author: ROBINSON BRUNNER MD Service: ? Author Type: Anesthesiologist Type: Anesthesia Postprocedure Evaluation Filed: 07/31/2024 12:48 Note Text: POST ANESTHESIA EVALUATION NOTE : 1940 Procedure Summary Date: 07/27/24 Room / Location: [address] [facility] [place] Anesthesia Start: 1114 Anesthesia Stop: 1322 Procedures: VITRECTOMY 25G [facility] [place] APPROACH W/ REMOVAL OF PRERETINAL [...] with this procedure. Documented by Mikhail Nichols APRN.RIDING COACH 07/27/2024 1:22 PM EST SIGNATURE: Robinson Pizano MD PATIENT NAME: Mel Castillo DATE: July 31, 2024 TIME: 12:46 PM CSN: [id number] Normal [facility] ANES PRE-OPon 07-27-2024 ANES PRE-OP HNO ID: [id number] Author: ROBINSON BRUNNER MD Service: ? Author Type: Anesthesiologist Type: Anesthesia Preprocedure Evaluation Filed: 07/27/2024 11:10 Note Text: ANESTHESIOLOGY DAY OF SURGERY NOTE : 1940 Procedure Information Date/Time: 07/27/24 1110 Procedures: [facility] W/ REMOVAL OF PRERETINAL CELLULAR MEMBRANE (Right: Eye) RELEASE OF VITREOUS, CHOROIDAL FLUID, PARS PLANA APPROACH (Right: Eye) Location: [place] [address] / [facility] Surgeons: Savana Lopez MD Estimated [...] and consent discussed: yes. Patient / Responsible [employer] Party agrees to proceed: yes Patient / [...] tiotropium 2.5 (more content not included)... Normal [facility] OPERATIVE NOon 07-27-2024 OPERATIVE NO HNO ID: [id number] Author: SAVANA LOPEZ MD Service: Ophthalmology Author Type: Physician Type: Operative Report Filed: 07/27/2024 13:20 Note Text: [place] [address] [place] [facility] OPERATIVE REPORT LOG ID: [id number] Surgery/Procedure Date: 07/27/2024 Incision/Procedure Start Time: 11:39 AM Incision Close/Procedure End Time: 1:07 PM NAME: Mel Pop [facility] #: [id number] SURGEON(S) AND BOX TRUCK DRIVER(S): Surgeons and Role: Panel 1: * Savana [...] was repaired by the use of max gas shovel operator forceps and vitreous cutter. This was [...] times thro (more content not included)... Normal [facility] BSCAN OD (RIGHT EYE)on 07-24 [facility] Right eye Photo documentatio non 07-24-2024 [facility] BSCAN OD (RIGHT EYE)on 07-23 Radiology Study observation (narrative) [facility] Right eye Photo documentatio non 07-23-2024 Radiology Study observation (narrative) [facility] CASE MANAGEMon 07-18-2024 CASE MANAGEM HNO ID: [id number] Author: DOMINIQUE RAMSAY LSW Service: ? Author Type: Commercial Roofing Estimator Type: Care Mgt Progress Note Filed: 07/18/2024 11:21 Note Text: CARE MANAGEMENT DISCHARGE NOTE SERVICE DATE: July 18, 2024 SERVICE TIME: 11:19 AM Admission Date: 07/07/2024 LOS: 11 days Discharge Arrangement Discharge Arrangement: [facility] Arranged Medical Services: Other: See Comment (N/A) Caregiver Assessment Caregiver is ready, willing and able to meet the patient's needs as recommended by the inter-professional team: Yes Name of Caregiver: Rosangela Tomlin Transportation Arrangements Transportation Arrangements: Ambulance Transportation Agency and Phone #:: [facility] [phone] Date of Trip: 07/18/24 Time of Trip: 1100 Type of Service: BLS Non-emergency Handoff Communication: Handoff to: Primary Care Physician Primary Care Physician Name/Phone: Jared Evans Additional Information: Discharge Information Row Name Admission (Current) from 07/07/2024 in [facility] [place] [address] Patient d/c ready to [facility] via [facility] with machine operator hop picker scheduled for 11am today by Stretcher. Patient aware of plan. Bedside RN aware of plan and provided number to call report for nurse report; call [phone] :) Organ Pipe Finisher can transfer you to the 2nd floor. . 7000 and DC instructions sent to [facility] via [employer] and are in DC packet. DC packet in chart to go with patient. SIGNATURE: SHAQUILLE Garay PATIENT NAME: Mel Castillo DATE: July 18, 2024 TIME: 11:[address] [facility] CBC panel Auto (Bld)on 07-18 Erythrocyte distribution width (RBC) [Ratio] 17.5 % High 11.5-15.0 [facility] Comment on above: Order Comment: Speci men Type: BLOOD SPECIMEN Ordering Facility: [facility] Address: [address] [place] [address] Performed By: #### 5 8410-2 #### [facility] CLIA [id number] [address] [place] [address] [place] Hematocrit (Bld) [Volume fraction] 33.8 % Low 36.0-46.0 [facility] Comment on above: Order Comment: Speci men Type: BLOOD SPECIMEN Ordering Facility: [facility] Address: [address] [place] [address] Performed By: #### 5 8410-2 #### [facility] CLIA [id number] [address] [place] [address] [place] Hemoglobin (Bld) [Mass/Vol] 10.5 g/dL Low 11.5-15.5 [facility] Comment on above: Order Comment: Speci men Type: BLOOD SPECIMEN Ordering Facility: [facility] Address: [address] [place] [address] Performed By: #### 5 8410-2 #### [facility] CLIA [id number] [address] [place] [address] [place] MCH (RBC) [Entitic mass] 26.0 pg Normal 26.0-34.0 [facility] Comment on above: Order Comment: Speci men Type: BLOOD SPECIMEN Ordering Facility: [facility] Address: [address] [place] [address] Performed By: #### 5 8410-2 #### [facility] CLIA [id number] [address] [place] [address] [place] MCHC (RBC) [Mass/Vol] 31.1 g/dL Normal 30.5-36.0 [facility] Comment on above: Order Comment: Speci men Type: BLOOD SPECIMEN Ordering Facility: [facility] Address: [address] [place] [address] Performed By: #### 5 8410-2 #### [facility] CLIA [id number] [address] [place] [address] [place] MCV (RBC) [Entitic vol] 83.7 fL Normal 80.0-100.0 [facility] Comment on above: Order Comment: Speci men Type: BLOOD SPECIMEN Ordering Facility: [facility] Address: [address] [place] [address] Performed By: #### 5 8410-2 #### [facility] CLIA [id number] [address] [place] [address] [place] Nucleated RBC (Bld) [#/Vol] 10*3/uL Normal <0.01 [facility] Comment on above: Order Comment: Speci men Type: BLOOD SPECIMEN Ordering Facility: [facility] Address: [address] [place] [address] Performed By: #### 5 8410-2 #### [facility] CLIA [id number] [address] [place] [address] [place] Platelet mean volume (Bld) [Entitic vol] 9.3 fL Normal 9.0-12.7 [facility] Comment on above: Order Comment: Speci men Type: BLOOD SPECIMEN Ordering Facility: [facility] Address: [address] [place] [address] Performed By: #### 5 8410-2 #### [facility] CLIA [id number] [address] [place] [address] [place] Platelets (Bld) [#/Vol] 386 10*3/uL Normal 150-400 [facility] Comment on above: Order Comment: Speci men Type: BLOOD SPECIMEN Ordering Facility: [facility] Address: [address] [place] [address] Performed By: #### 5 8410-2 #### [facility] CLIA [id number] [address] [place] [address] [place] RBC (Bld) [#/Vol] 4.04 10*6/uL Normal 3.90-5.20 [facility] Comment on above: Order Comment: Speci men Type: BLOOD SPECIMEN Ordering Facility: [facility] Address: [address] [place] [address] Performed By: #### 5 8410-2 #### [facility] CLIA [id number] [address] [place] [address] [place] WBC (Bld) [#/Vol] 10.81 10*3/uL Normal 3.70-11.00 [facility] Comment on above: Order Comment: Speci men Type: BLOOD SPECIMEN Ordering Facility: [facility] Address: [address] [place] [address] Performed By: #### 5 8410-2 #### [facility] CLIA [id number] [address] [place] [address] OF [place] CNDSon 07-18-2024 CNDS HNO ID: [id number] Author: BRIANA PRITCHARD MD Service: General Internal [...] May 2024 who presents to OSH from [facility] for further evaluation of R acute angle [...] hemorraghic cho (more content not included)... Normal [facility] Renal function 2000 panelon 07-18-2024 Albumin [Mass/Vol] 3.2 g/dL Low 3.9-4.9 [facility] Comment on above: Order Comment: Speci men Type: BLOOD SPECIMEN Ordering Facility: [facility] Address: [facility] [place] [id number] Performed By: #### 2 4362-6 #### [facility] CLIA [id number] [address] [place] [id number] [place] Anion gap [Moles/Vol] 11 mmol/L Normal 8-15 [facility] Comment on above: Order Comment: Speci men Type: BLOOD SPECIMEN Ordering Facility: [facility] Address: [address] [place], [place] [address] Performed By: #### 2 4362-6 #### [facility] CLIA [id number] [address] [place] [address] [place] Calcium [Mass/Vol] 9.3 mg/dL Normal 8.5-10.2 [facility] Comment on above: Order Comment: Speci men Type: BLOOD SPECIMEN Ordering Facility: [facility] Address: [address] [place] [address] Performed By: #### 2 4362-6 #### [facility] CLIA [id number] [address] [place] [address] [place] Chloride [Moles/Vol] 102 mmol/L Normal 98-107 [facility] Comment on above: Order Comment: Speci men Type: BLOOD SPECIMEN Ordering Facility: [facility] Address: [address] [place] [address] Performed By: #### 2 4362-6 #### [facility] CLIA [id number] [address] [place] [address] [place] CO2 [Moles/Vol] 25 mmol/L Normal 22-30 [facility] Comment on above: Order Comment: Speci men Type: BLOOD SPECIMEN Ordering Facility: [facility] Address: [address] [place], [place] [address] Performed By: #### 2 4362-6 #### [facility] CLIA [id number] [address] [place], [place] [address] [place] Creatinine [Mass/Vol] 0.90 mg/dL Normal 0.58-0.96 [facility] Comment on above: Order Comment: Speci men Type: BLOOD SPECIMEN Ordering Facility: [facility] Address: [address] [place] [address] Performed By: #### 2 4362-6 #### [facility] CLIA [id number] [address] [place] [address] [place] Creatinine and Glomerular filtration rate.predicted panel (S/P/Bld) 63 mL/min/1.73m??? Normal >=60 [facility] Comment on above: Order Comment: Rhina mason Type: BLOOD SPECIMEN Ordering Facility: [facility] Address: [address] [place] [address] Result Comment: Isa mated Glomerular Filtration Rate [...] GFR. Performed By: #### 2 4362-6 #### [facility] CLIA [id number] [address] [place] [address] [place] Glucose [Mass/Vol] 105 mg/dL High 74-99 [facility] Comment on above: Order Comment: Rhina mason Type: BLOOD SPECIMEN Ordering Facility: [facility] Address: [address] [place] [address] Result Comment: The [place] Diabetes Association (ADA) provides guidance for cutoff [...] Standards of Medical Care in Diabetes 2016, [place] [employer]. Diabetes Care. 2016.39(Suppl 1). Performed By: #### 2 4362-6 #### [facility] CLIA [id number] [address] [place] [address] [place] Phosphate [Mass/Vol] 3.0 mg/dL Normal 2.7-4.8 [facility] Comment on above: Order Comment: Speci men Type: BLOOD SPECIMEN Ordering Facility: [facility] Address: [address] [place] [address] Performed By: #### 2 4362-6 #### [facility] CLIA [id number] [address] [place] [address] [place] Potassium [Moles/Vol] 4.5 mmol/L Normal 3.7-5.1 [facility] Comment on above: Order Comment: Speci men Type: BLOOD SPECIMEN Ordering Facility: [facility] Address: [address] [place] [address] Performed By: #### 2 4362-6 #### [facility] CLIA [id number] [address] [place] [address] [place] Sodium [Moles/Vol] 138 mmol/L Normal 136-144 [facility] Comment on above: Order Comment: Speci men Type: BLOOD SPECIMEN Ordering Facility: [facility] Address: [address] [place] [address] Performed By: #### 2 4362-6 #### [facility] CLIA [id number] [address] [place] [address] [place] Urea nitrogen [Mass/Vol] 17 mg/dL Normal 7-21 [facility] Comment on above: Order Comment: Speci men Type: BLOOD SPECIMEN Ordering Facility: [facility] Address: [address] [place] [address] Performed By: #### 2 4362-6 #### [facility] CLIA [id number] [address] [place], [place] [address] [place] CASE MANAGEMon 07-17-2024 CASE MANAGEM HNO ID: [id number] Author: ?, ?, ? Service: ? Author Type: ? Type: Care Mgt Progress Note Filed: 07/17/2024 14:07 Note Text: CARE MANAGEMENT PROGRESS NOTE SERVICE DATE: 07/17/2024 SERVICE TIME: 2:07 PM LOS: 10 days Discharge packet completed and dropped off by hr assistant Tamiko Holley. Packet is missing AVS/DC forms, please reach out to casey saw operator with any discharge related questions. SIGNATURE: Tamiko Holley PATIENT NAME: Mel Castillo DATE: July 17, 2024 TIME: 2:07 PM [facility] CASE MANAGEM HNO ID: [id number] Author: DOMINIQUE RAMSAY LSW Service: ? Author Type: Commercial Roofing Estimator Type: Care Mgt Progress Note Filed: 07/17/2024 13:44 Note Text: CARE MANAGEMENT HOLIDAY PLANNING NOTE DISCHARGE OR POSSIBLE DISCHARGE Date/Time: 07/18 at 11am Disposition: [facility] Facility - Precert Obtained: Yes Facility Name: [facility] Phone #: Transport: Mode of Transportation: Ambulance Transportation Agency and Phone #: [facility] [phone] . Date of Trip: 07/18/2024 at 11am Other Concerns: 11 am DC via [facility] trip# #[id number] to take Pt to [facility]. Pre-cert is approved, a bed is available, and Pt is medically ready. 7000 has been tasked. DC packet has been tasked. DNR form is on green chart. [employer] Pager #: Please see Treatment Team for Care Management Weekend/Holiday coverage. SIGNATURE: SHAQUILLE Garay PATIENT NAME: Mel Castillo DATE: July 17, 2024 TIME: 1:42 PM PAGER/CONTACT #: [facility] CASE MANAGEM HNO ID: [id number] Author: BASILIA CAPPS, ? Service: ? Author Type: ? Type: Care Mgt Progress Note Filed: 07/17/2024 13:14 Note Text: [facility] PRECERT NOTE [employer] MEDICARE PPO approved [facility] Facility for Rosangela Tomlin . Precert approved through 07/19/2024. For any additional questions regarding approvals, transport or care management needs, please contact the CM assigned to this patient in the Treatment Team. SIGNATURE: Basilia Capps DATE: July 17, 2024 TIME: 1:[address] [facility] CASE MANAGEM HNO ID: [id number] Author: DOMINIQUE RAMSAY LSW Service: General Internal Medicine Author Type: Commercial Roofing Estimator Type: Care Mgt Progress Note Filed: 07/17/2024 11:29 Note Text: Attestation signed by Thomas Car DO at 07/17/2024 11:37 AM Thomas Car D.O. PGY-2 Internal Medicine Resident [facility] Click here to page July 17, [...] * Attending Physician: Briana Pritchard MD Normal [facility] CBC panel Auto (Bld)on 07-17 Erythrocyte distribution width (RBC) [Ratio] 17.2 % High 11.5-15.0 [facility] Comment on above: Order Comment: Rhina mason Type: BLOOD SPECIMEN Ordering Facility: [facility] Address: [address] [place] [address] Performed By: #### 2 276-4 #### [facility] CLIA [id number] [address] [place] [address] [place] Hematocrit (Bld) [Volume fraction] 32.3 % Low 36.0-46.0 [facility] Comment on above: Order Comment: Rhina mason Type: BLOOD SPECIMEN Ordering Facility: [facility] Address: [address] [place] [address] Performed By: #### 2 276-4 #### [facility] CLIA [id number] [address] [place] [address] [place] Hemoglobin (Bld) [Mass/Vol] 10.2 g/dL Low 11.5-15.5 [facility] Comment on above: Order Comment: Rhina mason Type: BLOOD SPECIMEN Ordering Facility: [facility] Address: [address] [place] [address] Performed By: #### 2 276-4 #### [facility] CLIA [id number] [address] [place] [address] [place] MCH (RBC) [Entitic mass] 26.5 pg Normal 26.0-34.0 [facility] Comment on above: Order Comment: Rhina mason Type: BLOOD SPECIMEN Ordering Facility: [facility] Address: [address] [place] [address] Performed By: #### 2 276-4 #### [facility] CLIA [id number] [address] [place] [address] [place] MCHC (RBC) [Mass/Vol] 31.6 g/dL Normal 30.5-36.0 [facility] Comment on above: Order Comment: Speci men Type: BLOOD SPECIMEN Ordering Facility: [facility] Address: [address] [place] [address] Performed By: #### 2 276-4 #### [facility] CLIA [id number] [address] [place] [address] [place] MCV (RBC) [Entitic vol] 83.9 fL Normal 80.0-100.0 [facility] Comment on above: Order Comment: Speci men Type: BLOOD SPECIMEN Ordering Facility: [facility] Address: [address] [place] [address] Performed By: #### 2 276-4 #### [facility] CLIA [id number] [address] [place] [address] [place] Nucleated RBC (Bld) [#/Vol] 10*3/uL Normal <0.01 [facility] Comment on above: Order Comment: Speci men Type: BLOOD SPECIMEN Ordering Facility: [facility] Address: [address] [place] [address] Performed By: #### 2 276-4 #### [facility] CLIA [id number] [address] [place] [address] [place] Platelet mean volume (Bld) [Entitic vol] 9.7 fL Normal 9.0-12.7 [facility] Comment on above: Order Comment: Speci men Type: BLOOD SPECIMEN Ordering Facility: [facility] Address: [address] [place] [address] Performed By: #### 2 276-4 #### [facility] CLIA [id number] [address] [place] [address] [place] Platelets (Bld) [#/Vol] 362 10*3/uL Normal 150-400 [facility] Comment on above: Order Comment: Speci men Type: BLOOD SPECIMEN Ordering Facility: [facility] Address: [address] [place] [address] Performed By: #### 2 276-4 #### [facility] CLIA [id number] [address] [place] [address] [place] RBC (Bld) [#/Vol] 3.85 10*6/uL Low 3.90-5.20 [facility] Comment on above: Order Comment: Speci men Type: BLOOD SPECIMEN Ordering Facility: [facility] Address: [address] [place] [address] Performed By: #### 2 276-4 #### [facility] CLIA [id number] [address] [place] [address] [place] WBC (Bld) [#/Vol] 9.41 10*3/uL Normal 3.70-11.00 [facility] Comment on above: Order Comment: Speci men Type: BLOOD SPECIMEN Ordering Facility: [facility] Address: [address] [place] [address] Performed By: #### 2 276-4 #### [facility] CLIA [id number] [address] [place] [address] [place] Renal function 2000 panelon 07-17-2024 Albumin [Mass/Vol] 3.3 g/dL Low 3.9-4.9 [facility] Comment on above: Order Comment: Speci men Type: BLOOD SPECIMENOrdering Facility: [facility] Address: [address] [place] [address] Performed By: #### 2 4362-6 ####[facility] [id number] [place] [address] [place] Anion gap [Moles/Vol] 10 mmol/L Normal 8-15 [facility] Comment on above: Order Comment: Speci men Type: BLOOD SPECIMENOrdering Facility: [facility] Address: [address] [place] [address] Performed By: #### 2 4362-6 ####[facility] [id number] [place] [address] [place] Calcium [Mass/Vol] 9.0 mg/dL Normal 8.5-10.2 [facility] Comment on above: Order Comment: Speci men Type: BLOOD SPECIMENOrdering Facility: [facility] Address: [facility] [place] [address] Performed By: #### 2 4362-6 ####[facility] [id number] [place] [address] [place] Chloride [Moles/Vol] 101 mmol/L Normal 98-107 [facility] Comment on above: Order Comment: Speci men Type: BLOOD SPECIMENOrdering Facility: [facility] Address: [address] [place] [address] Performed By: #### 2 4362-6 ####[facility] [id number] [place] [address] [place] CO2 [Moles/Vol] 25 mmol/L Normal 22-30 [facility] Comment on above: Order Comment: Speci men Type: BLOOD SPECIMENOrdering Facility: [facility] Address: [address] [place] [address] Performed By: #### 2 4362-6 ####[facility] [id number] [place] [address] [place] Creatinine [Mass/Vol] 0.94 mg/dL Normal 0.58-0.96 [facility] Comment on above: Order Comment: Speci men Type: BLOOD SPECIMENOrdering Facility: [facility] Address: [address] [place] [address] Performed By: #### 2 4362-6 ####[facility] [id number] [place] [address] [place] Creatinine and Glomerular filtration rate.predicted panel (S/P/Bld) 60 mL/min/1.73m??? Normal >=60 [facility] Comment on above: Order Comment: Speci men Type: BLOOD SPECIMENOrdering Facility: [facility] Address: [address] [place] [address] Result Comment: Isa mated Glomerular Filtration Rate [...] actual GFR. Performed By: #### 2 4362-6 ####[facility] [id number] [place] [address] [place] Glucose [Mass/Vol] 112 mg/dL High 74-99 [facility] Comment on above: Order Comment: Rhina mason Type: BLOOD SPECIMENOrdering Facility: [facility] Address: [address] [place] [address] Result Comment: The [place] Diabetes Association (ADA) provides guidance for cutoff [...] Standards of Medical Care in Diabetes 2016, [place] [employer]. Diabetes Care. 2016.39(Suppl 1). Performed By: #### 2 4362-6 ####[facility] [id number] [place] [address] [place] Phosphate [Mass/Vol] 2.2 mg/dL Low 2.7-4.8 [facility] Comment on above: Order Comment: Rhina mason Type: BLOOD SPECIMENOrdering Facility: [facility] Address: [address] [place] [address] Performed By: #### 2 4362-6 ####[facility] [id number] [place] [address] [place] Potassium [Moles/Vol] 4.6 mmol/L Normal 3.7-5.1 [facility] Comment on above: Order Comment: Speci men Type: BLOOD SPECIMENOrdering Facility: [facility] Address: [address] [place] [address] Performed By: #### 2 4362-6 ####[facility] [id number] [place] [address] [place] Sodium [Moles/Vol] 136 mmol/L Normal 136-144 [facility] Comment on above: Order Comment: Speci men Type: BLOOD SPECIMENOrdering Facility: [facility] Address: [address] [place] [address] Performed By: #### 2 4362-6 ####[facility] [id number] [place] [address] [place] Urea nitrogen [Mass/Vol] 20 mg/dL Normal 7-21 [facility] Comment on above: Order Comment: Speci men Type: BLOOD SPECIMENOrdering Facility: [facility] Address: [address] [place] [address] Performed By: #### 2 4362-6 ####[facility] [id number] [place] [address] [place] THERAPY NTon 07-17-2024 THERAPY NT HNO ID: [id number] Author: SANTIAGO GUZMAN, OT/L Service: Occupational Therapy Author Type: Occupational Therapist Type: Therapy (PT/OT/Speech/Resp) Filed: 07/17/2024 15:14 Note Text: Occupational Therapy Treatment Summary SERVICE DATE: 07/17/2024 SERVICE TIME: 1425 to 1504 ROOM: [place] [address] OT 6 Clicks Score: 15 DISCHARGE RECOMMENDATIONS [...] (ADL), Muscle Weakness (generalized) TREATMENT INTERVENTIONS Self Correction Management (19353) Timed Code Treatment (minutes): 39 Skilled Treatment [...] Sit to Stand, Standing Balance to Improve Nash with ADLs/Self-Care, Sitting Balance to Improve Nash with ADLs/Self-Care, Life Roles/Routines/Habits THERAPEUTIC SKILLS USED [...] to Radha (more content not included)... Normal [facility] THERAPY NT HNO ID: [id number] Author: GABRIELLA DALEY PT Service: Physical Therapy Author Type: Physical Therapist Type: Therapy (PT/OT/Speech/Resp) Filed: 07/17/2024 09:31 Note Text: Physical Therapy Evaluation Summary SERVICE DATE: 07/17/2024 SERVICE TIME: 832 to 911 ROOM: [place] [address] PT 6 Clicks Score: 18 DISCHARGE RECOMMENDATIONS [...] DIAGNOSIS Reduced mobility-other TREATMENT INTERVENTIONS $ Evaluation-Moderate (02624) Billed Units: 1 unit Therapeutic Activity (99616) Treatment Minutes: 10 $ Therapeutic Activity (88342) Billed Units: 1 unit Gait Training (51040) Treatment Minutes: 14 $ Gait Training (14033) Billed Units: 1 unit Evaluation, Therapeutic Activity (93386), Gait Training (06572) Timed Code Treatment (minutes): 24 Skilled Treatment [...] standing rest required throughout d/t fatigue and PIANTING Gait Device: Wheeled Walker General Deviations/Observations : [...] Conservation Training, (more content not included)... Normal [facility] BSCAN OD (RIGHT EYE)on 07-16 [facility] Radiology Study observation (narrative) [facility] CBC panel Auto (Bld)on 07-16 Erythrocyte distribution width (RBC) [Ratio] 17.8 % High 11.5-15.0 [facility] Comment on above: Order Comment: Rhina mason Type: BLOOD SPECIMEN [facility] Address: [address] [place] [address] Performed By: #### 5 8410-2 #### [facility] CLIA [id number] [address] [place] [address] [place] [address] [place] Hematocrit (Bld) [Volume fraction] 33.2 % Low 36.0-46.0 [facility] Comment on above: Order Comment: Speci men Type: BLOOD SPECIMEN [facility] Address: [address] [place] [address] Performed By: #### 5 8410-2 #### [facility] CLIA [id number] [address] [place] [address] [place] Hemoglobin (Bld) [Mass/Vol] 10.3 g/dL Low 11.5-15.5 [facility] Comment on above: Order Comment: Speci men Type: BLOOD SPECIMEN [facility] Address: [address] [place] [address] Performed By: #### 5 8410-2 #### [facility] CLIA [id number] [address] [place] [address] [place] MCH (RBC) [Entitic mass] 25.6 pg Low 26.0-34.0 [facility] Comment on above: Order Comment: Speci men Type: BLOOD SPECIMEN [facility] Address: [address] [place] [address] Performed By: #### 5 8410-2 #### [facility] CLIA [id number] [address] [place] [address] [place] MCHC (RBC) [Mass/Vol] 31.0 g/dL Normal 30.5-36.0 [facility] Comment on above: Order Comment: Speci men Type: BLOOD SPECIMEN [facility] Address: [address] [place] [address] Performed By: #### 5 8410-2 #### [facility] CLIA [id number] [address] [place] [address] [place] MCV (RBC) [Entitic vol] 82.4 fL Normal 80.0-100.0 [facility] Comment on above: Order Comment: Speci men Type: BLOOD SPECIMEN [facility] Address: [address] [place] [address] Performed By: #### 5 8410-2 #### [facility] CLIA [id number] [address] [place] [address] [place] Nucleated RBC (Bld) [#/Vol] 10*3/uL Normal <0.01 [facility] Comment on above: Order Comment: Speci men Type: BLOOD SPECIMEN [facility] Address: [address] [place] [address] Performed By: #### 5 8410-2 #### [facility] CLIA [id number] [address] [place] [address] [place] Platelet mean volume (Bld) [Entitic vol] 9.8 fL Normal 9.0-12.7 [facility] Comment on above: Order Comment: Speci men Type: BLOOD SPECIMEN [facility] Address: [address] [place] [address] Performed By: #### 5 8410-2 #### [facility] CLIA [id number] [address] [place] [address] [place] Platelets (Bld) [#/Vol] 348 10*3/uL Normal 150-400 [facility] Comment on above: Order Comment: Speci men Type: BLOOD SPECIMEN [facility] Address: [address] [place] [address] Performed By: #### 5 8410-2 #### [facility] CLIA [id number] [address] [place] [address] [place] RBC (Bld) [#/Vol] 4.03 10*6/uL Normal 3.90-5.20 [facility] Comment on above: Order Comment: Speci men Type: BLOOD SPECIMEN [facility] Address: [address] [place] [address] Performed By: #### 5 8410-2 #### [facility] CLIA [id number] [address] [place] [address] [place] WBC (Bld) [#/Vol] 11.15 10*3/uL High 3.70-11.00 [facility] Comment on above: Order Comment: Speci men Type: BLOOD SPECIMEN [facility] Address: [address] [place] [address] Performed By: #### 5 8410-2 #### [facility] CLIA [id number] [address] [place] [address] [place] FUNDUS PHOTOS OU (BOTH EYES) on 07-16-2024 [facility] Radiology Study observation (narrative) [facility] Renal function 2000 panelon 07-16-2024 Albumin [Mass/Vol] 3.1 g/dL Low 3.9-4.9 [facility] Comment on above: Order Comment: Speci men Type: BLOOD SPECIMENOrdering Facility: [facility] Address: [address] [place] [address] Performed By: #### 2 4362-6 ####[facility] [id number] [place] [address] [place] Anion gap [Moles/Vol] 12 mmol/L Normal 8-15 [facility] Comment on above: Order Comment: Speci men Type: BLOOD SPECIMENOrdering Facility: [facility] Address: [address] [place] [address] Performed By: #### 2 4362-6 ####[facility] [id number] [place] [address] [place] Calcium [Mass/Vol] 9.0 mg/dL Normal 8.5-10.2 [facility] Comment on above: Order Comment: Speci men Type: BLOOD SPECIMENOrdering Facility: [facility] Address: [address] [place] [address] Performed By: #### 2 4362-6 ####[facility] [id number] [place] [address] [place] Chloride [Moles/Vol] 103 mmol/L Normal 98-107 [facility] Comment on above: Order Comment: Speci men Type: BLOOD SPECIMENOrdering Facility: [facility] Address: [address] [place] [address] Performed By: #### 2 4362-6 ####[facility] [id number] [place] [address] [place] CO2 [Moles/Vol] 23 mmol/L Normal 22-30 [facility] Comment on above: Order Comment: Speci men Type: BLOOD SPECIMENOrdering Facility: [facility] Address: [address] [place] [address] Performed By: #### 2 4362-6 ####[facility] [id number] [place] [address] [place] [facility] Creatinine [Mass/Vol] 1.09 mg/dL High 0.58-0.96 [facility] Comment on above: Order Comment: Speci men Type: BLOOD SPECIMENOrdering Facility: [facility] Address: [address] [place] [address] Performed By: #### 2 4362-6 ####[facility] [id number] [address] [place] [facility] Creatinine and Glomerular filtration rate.predicted panel (S/P/Bld) 50 mL/min/1.73m??? Low >=60 [facility] Comment on above: Order Comment: Speci men Type: BLOOD SPECIMENOrdering Facility: [facility] Address: [address] [place] [address] Result Comment: Isa mated Glomerular Filtration Rate [...] actual GFR. Performed By: #### 2 4362-6 ####[facility] [id number] [place] [address] [place] Glucose [Mass/Vol] 103 mg/dL High 74-99 [facility] Comment on above: Order Comment: Speci men Type: BLOOD SPECIMENOrdering Facility: [facility] Address: [address] [place] [address] Result Comment: The [place] [employer] (ADA) provides guidance for cutoff [...] Standards of Medical Care in Diabetes 2016, [place] [employer]. Diabetes Care. 2016.39(Suppl 1). Performed By: #### 2 4362-6 ####[facility] [id number] [place] [address] [place] Phosphate [Mass/Vol] 2.9 mg/dL Normal 2.7-4.8 [facility] Comment on above: Order Comment: Speci men Type: BLOOD SPECIMENOrdering Facility: [facility] Address: [address] [place] [address] Performed By: #### 2 4362-6 ####[facility] LABIA [id number] [place] [address] [place] Potassium [Moles/Vol] 4.5 mmol/L Normal 3.7-5.1 [facility] Comment on above: Order Comment: Speci men Type: BLOOD SPECIMENOrdering Facility: [facility] Address: [address] [place] [address] Performed By: #### 2 4362-6 ####[facility] [id number] [address] [place] Sodium [Moles/Vol] 138 mmol/L Normal 136-144 [facility] Comment on above: Order Comment: Speci men Type: BLOOD SPECIMENOrdering Facility: [facility] Address: [address] [place] [address] Performed By: #### 2 4362-6 ####[facility] [id number] [address] [place] Urea nitrogen [Mass/Vol] 22 mg/dL High 7-21 [facility] Comment on above: Order Comment: Speci men Type: BLOOD SPECIMENOrdering Facility: [facility] Address: [address] [place] [address] Performed By: #### 2 4362-6 ####[facility] [id number] [address] THERAPY NTon 07-16-2024 THERAPY NT HNO ID: [id number] Author: SANTIAGO GUZMAN OT/L Service: Occupational Therapy Author Type: Occupational Therapist Type: Therapy (PT/OT/Speech/Resp) Filed: 07/16/2024 15:10 Note Text: Occupational Therapy Treatment Summary SERVICE DATE: 07/16/2024 SERVICE TIME: 1415 to 1500 ROOM: [place] [address] OT 6 Clicks Score: 15 DISCHARGE RECOMMENDATIONS [...] (ADL), Muscle Weakness (generalized) TREATMENT INTERVENTIONS Self Correction Management (47807) Timed Code Treatment (minutes): 45 Skilled Treatment [...] Sit to Stand, Standing Balance to Improve Nash with ADLs/Self-Care, Sitting Balance to Improve Nash with ADLs/Self-Care, Life Roles/Routines/Habits THERAPEUTIC SKILLS USED [...] Assistance Sit (more content not included)... Normal [facility] CBC panel Auto (Bld)on 07-15 Erythrocyte distribution width (RBC) [Ratio] 17.8 % High 11.5-15.0 [facility] Comment on above: Order Comment: Speci men Type: BLOOD SPECIMEN [facility] Address: [address] [place] [address] Performed By: #### 2 4362-6 #### [facility] CLIA [id number] [address] [place] [address] [place] Hematocrit (Bld) [Volume fraction] 34.4 % Low 36.0-46.0 [facility] Comment on above: Order Comment: Speci men Type: BLOOD SPECIMEN [facility] Address: [address] [place] [address] Performed By: #### 2 4362-6 #### [facility] CLIA [id number] [address] [place] [address] [place] Hemoglobin (Bld) [Mass/Vol] 10.7 g/dL Low 11.5-15.5 [facility] Comment on above: Order Comment: Speci men Type: BLOOD SPECIMEN [facility] Address: [address] [place] [address] Performed By: #### 2 4362-6 #### [facility] CLIA [id number] [address] [place] [address] [place] MCH (RBC) [Entitic mass] 26.2 pg Normal 26.0-34.0 [facility] Comment on above: Order Comment: Speci men Type: BLOOD SPECIMEN [facility] Address: [address] [place] [address] Performed By: #### 2 4362-6 #### [facility] CLIA [id number] [address] [place] [address] [place] MCHC (RBC) [Mass/Vol] 31.1 g/dL Normal 30.5-36.0 [facility] Comment on above: Order Comment: Speci men Type: BLOOD SPECIMEN [facility] Address: [address] [place] [address] Performed By: #### 2 4362-6 #### [facility] CLIA [id number] [address] [place] [address] [place] MCV (RBC) [Entitic vol] 84.1 fL Normal 80.0-100.0 [facility] Comment on above: Order Comment: Speci men Type: BLOOD SPECIMEN [facility] Address: [address] [place] [address] Performed By: #### 2 4362-6 #### [facility] CLIA [id number] [address] [place] [address] [place] Nucleated RBC (Bld) [#/Vol] 10*3/uL Normal <0.01 [facility] Comment on above: Order Comment: Speci men Type: BLOOD SPECIMEN [facility] Address: [address] [place] [address] Performed By: #### 2 4362-6 #### [facility] CLIA [id number] [address] [place] [address] [place] Platelet mean volume (Bld) [Entitic vol] 10.1 fL Normal 9.0-12.7 [facility] Comment on above: Order Comment: Speci men Type: BLOOD SPECIMEN [facility] Address: [address] [place] [address] Performed By: #### 2 4362-6 #### [facility] CLIA [id number] [address] [place] [address] [place] Platelets (Bld) [#/Vol] 386 10*3/uL Normal 150-400 [facility] Comment on above: Order Comment: Speci men Type: BLOOD SPECIMEN [facility] Address: [address] [place] [address] Performed By: #### 2 4362-6 #### [facility] CLIA [id number] [address] [place] [address] [place] RBC (Bld) [#/Vol] 4.09 10*6/uL Normal 3.90-5.20 [facility] Comment on above: Order Comment: Speci men Type: BLOOD SPECIMEN [facility] Address: [address] [place] [address] Performed By: #### 2 4362-6 #### [facility] CLIA [id number] [address] [place], [place] [address] [place] WBC (Bld) [#/Vol] 10.20 10*3/uL Normal 3.70-11.00 [facility] Comment on above: Order Comment: Speci men Type: BLOOD SPECIMEN [facility] Address: [address] [place] [address] Performed By: #### 2 4362-6 #### [facility] CLIA [id number] [address] [place] [address] [place] Renal function 2000 panelon 07-15-2024 Albumin [Mass/Vol] 3.5 g/dL Low 3.9-4.9 [facility] Comment on above: Order Comment: Speci men Type: BLOOD SPECIMENOrdering Facility: [facility] Address: [address] [place] [address] Performed By: #### 2 4362-6 ####[facility] [id number] [place] [address] [place] Anion gap [Moles/Vol] 12 mmol/L Normal 8-15 [facility] Comment on above: Order Comment: Speci men Type: BLOOD SPECIMENOrdering Facility: [facility] Address: [address] [place] [address] Performed By: #### 2 4362-6 ####[facility] [id number] [place] [address] [place] Calcium [Mass/Vol] 9.1 mg/dL Normal 8.5-10.2 [facility] Comment on above: Order Comment: Speci men Type: BLOOD SPECIMENOrdering Facility: [facility] Address: [address] [place] [address] Performed By: #### 2 4362-6 ####[facility] [id number] [place] [address] [place] Chloride [Moles/Vol] 101 mmol/L Normal 98-107 [facility] Comment on above: Order Comment: Speci men Type: BLOOD SPECIMENOrdering Facility: [facility] Address: [address] [place] [address] Performed By: #### 2 4362-6 ####[facility] [id number] [place] [address] [place] CO2 [Moles/Vol] 24 mmol/L Normal 22-30 [facility] Comment on above: Order Comment: Speci men Type: BLOOD SPECIMENOrdering Facility: [facility] Address: [address] [place] [address] Performed By: #### 2 4362-6 ####[facility] [id number] [address] [place] Creatinine [Mass/Vol] 0.96 mg/dL Normal 0.58-0.96 [facility] Comment on above: Order Comment: Speci men Type: BLOOD SPECIMENOrdering Facility: [facility] Address: [address] [place] [address] Performed By: #### 2 4362-6 ####[facility] [id number] [place] [address] [place] Creatinine and Glomerular filtration rate.predicted panel (S/P/Bld) 58 mL/min/1.73m??? Low >=60 [facility] Comment on above: Order Comment: Speci men Type: BLOOD SPECIMENOrdering Facility: [facility] Address: [address] [place] [address] Result Comment: Isa mated Glomerular Filtration Rate [...] actual GFR. Performed By: #### 2 4362-6 ####[facility]IA [id number] [place] [address] [place] Glucose [Mass/Vol] 93 mg/dL Normal 74-99 [facility] Comment on above: Order Comment: Samiri men Type: BLOOD SPECIMENOrdering Facility: [facility] Address: [address] [place] [address] Result Comment: The [place] [employer] (ADA) provides guidance for cutoff [...] Standards of Medical Care in Diabetes 2016, [place] [employer]. Diabetes Care. 2016.39(Suppl 1). Performed By: #### 2 4362-6 ####[facility]IA [id number] [place] [address] [place] Phosphate [Mass/Vol] 3.1 mg/dL Normal 2.7-4.8 [facility] Comment on above: Order Comment: Samiri isabella Type: BLOOD SPECIMENOrdering Facility: [facility] Address: [address] [place] [address] Performed By: #### 2 4362-6 ####[facility] [id number] [place] [address] [place] Potassium [Moles/Vol] 4.3 mmol/L Normal 3.7-5.1 [facility] Comment on above: Order Comment: Samiri isabella Type: BLOOD SPECIMENOrdering Facility: [facility] Address: [address] [place] [address] Performed By: #### 2 4362-6 ####[facility]IA [id number] [place] [address] [place] Sodium [Moles/Vol] 137 mmol/L Normal 136-144 [facility] Comment on above: Order Comment: Speci men Type: BLOOD SPECIMENOrdering Facility: [facility] Address: [address] [place] [address] Performed By: #### 2 4362-6 ####[facility] [id number] [place] [address] [place] Urea nitrogen [Mass/Vol] 19 mg/dL Normal 7-21 [facility] Comment on above: Order Comment: Speci men Type: BLOOD SPECIMENOrdering Facility: [facility] Address: [address] [place] [address] Performed By: #### 2 4362-6 ####[facility] [id number] [place] [address] [place] CBC panel Auto (Bld)on 07-14 Erythrocyte distribution width (RBC) [Ratio] 17.9 % High 11.5-15.0 [facility] Comment on above: Order Comment: Speci men Type: BLOOD SPECIMEN [facility]ing Facility: [facility] Address: [address] [place] [address] Performed By: #### 2 4362-6 #### [facility] CLIA [id number] [address] [place] [address] [place] Hematocrit (Bld) [Volume fraction] 33.8 % Low 36.0-46.0 [facility] Comment on above: Order Comment: Speci men Type: BLOOD SPECIMEN [facility]ing Facility: [facility] Address: [address] [place] [address] Performed By: #### 2 4362-6 #### [facility] CLIA [id number] [address] [place] [address] [place] Hemoglobin (Bld) [Mass/Vol] 10.7 g/dL Low 11.5-15.5 [facility] Comment on above: Order Comment: Speci men Type: BLOOD SPECIMEN [facility]ing Facility: [facility] Address: [address] [place] [address] Performed By: #### 2 4362-6 #### [facility] CLIA [id number] [address] [place] [address] [place] MCH (RBC) [Entitic mass] 26.4 pg Normal 26.0-34.0 [facility] Comment on above: Order Comment: Speci men Type: BLOOD SPECIMEN [facility]ing Facility: [facility] Address: [address] [place] [address] Performed By: #### 2 4362-6 #### [facility] CLIA [id number] [address] [place] [address] [place] MCHC (RBC) [Mass/Vol] 31.7 g/dL Normal 30.5-36.0 [facility] Comment on above: Order Comment: Speci men Type: BLOOD SPECIMEN [facility]ing Facility: [facility] Address: [address] [place] [address] Performed By: #### 2 4362-6 #### [facility] CLIA [id number] [address] [place] [address] [place] MCV (RBC) [Entitic vol] 83.5 fL Normal 80.0-100.0 [facility] Comment on above: Order Comment: Speci men Type: BLOOD SPECIMEN [facility] Address: [address] [place] [address] Performed By: #### 2 4362-6 #### [facility] CLIA [id number] [address] [place] [address] [place] Nucleated RBC (Bld) [#/Vol] 10*3/uL Normal <0.01 [facility] Comment on above: Order Comment: Speci men Type: BLOOD SPECIMEN Ordering Facility: [facility] Address: [address] [place] [address] Performed By: #### 2 4362-6 #### [facility] CLIA [id number] [address] [place] [address] [place] Platelet mean volume (Bld) [Entitic vol] 10.3 fL Normal 9.0-12.7 [facility] Comment on above: Order Comment: Speci men Type: BLOOD SPECIMEN Ordering Facility: [facility] Address: [address] [place] [address] Performed By: #### 2 4362-6 #### [facility] CLIA [id number] [address] [place] [address] [place] Platelets (Bld) [#/Vol] 345 10*3/uL Normal 150-400 [facility] Comment on above: Order Comment: Speci men Type: BLOOD SPECIMEN Ordering Facility: [facility] Address: [address] [place] [address] Performed By: #### 2 4362-6 #### [facility] CLIA [id number] [address] [place] [address] [place] RBC (Bld) [#/Vol] 4.05 10*6/uL Normal 3.90-5.20 [facility] Comment on above: Order Comment: Speci men Type: BLOOD SPECIMEN Ordering Facility: [facility] Address: [address] [place] [address] Performed By: #### 2 4362-6 #### [facility] CLIA [id number] [address] [place] [address] [place] WBC (Bld) [#/Vol] 11.07 10*3/uL High 3.70-11.00 [facility] Comment on above: Order Comment: Speci men Type: BLOOD SPECIMEN Ordering Facility: [facility] Address: [address] [place] [address] Performed By: #### 2 4362-6 #### [facility] CLIA [id number] [address] [place] [address] [place] Renal function 2000 panelon 07-14-2024 Albumin [Mass/Vol] 3.5 g/dL Low 3.9-4.9 [facility] Comment on above: Order Comment: Speci men Type: BLOOD SPECIMEN Ordering Facility: [facility] Address: [address] [place] [address] Performed By: #### 2 4362-6 #### [facility] CLIA [id number] [address] [place] [address] [place] Anion gap [Moles/Vol] 14 mmol/L Normal 8-15 [facility] Comment on above: Order Comment: Speci men Type: BLOOD SPECIMEN Ordering Facility: [facility] Address: [address] [place] [address] Performed By: #### 2 4362-6 #### [facility] CLIA [id number] [address] [place] [address] [place] Calcium [Mass/Vol] 9.1 mg/dL Normal 8.5-10.2 [facility] Comment on above: Order Comment: Speci men Type: BLOOD SPECIMEN Ordering Facility: [facility] Address: [address] [place] [address] Performed By: #### 2 4362-6 #### [facility] CLIA [id number] [address] [place] [address] [place] Chloride [Moles/Vol] 98 mmol/L Normal 98-107 [facility] Comment on above: Order Comment: Speci men Type: BLOOD SPECIMEN Ordering Facility: [facility] Address: [address] [place] [address] Performed By: #### 2 4362-6 #### [facility] CLIA [id number] [address] [place] [address] [place] CO2 [Moles/Vol] 22 mmol/L Normal 22-30 [facility] Comment on above: Order Comment: Speci men Type: BLOOD SPECIMEN Ordering Facility: [facility] Address: [address] [place] [address] Performed By: #### 2 4362-6 #### [facility] CLIA [id number] [address] [place] [address] [place] Creatinine [Mass/Vol] 1.01 mg/dL High 0.58-0.96 [facility] Comment on above: Order Comment: Speci men Type: BLOOD SPECIMEN Ordering Facility: [facility] Address: [address] [place] [address] Performed By: #### 2 4362-6 #### [facility] CLIA [id number] [address] [place] [address] [place] Creatinine and Glomerular filtration rate.predicted panel (S/P/Bld) 55 mL/min/1.73m??? Low >=60 [facility] Comment on above: Order Comment: Rhina mason Type: BLOOD SPECIMEN Ordering Facility: [facility] Address: [address] [place] [address] Result Comment: Isa mated Glomerular Filtration Rate [...] GFR. Performed By: #### 2 4362-6 #### [facility] CLIA [id number] [address] [place] [address] [place] Glucose [Mass/Vol] 131 mg/dL High 74-99 [facility] Comment on above: Order Comment: Rhina mason Type: BLOOD SPECIMEN Ordering Facility: [facility] Address: [address] [place] [address] Result Comment: The [place] Diabetes Association (ADA) provides guidance for cutoff [...] Standards of Medical Care in Diabetes 2016, [place] [employer]. Diabetes Care. 2016.39(Suppl 1). Performed By: #### 2 4362-6 #### [facility] CLIA [id number] [address] [place] [address] [place] Phosphate [Mass/Vol] 3.5 mg/dL Normal 2.7-4.8 [facility] Comment on above: Order Comment: Speci men Type: BLOOD SPECIMEN Ordering Facility: [facility] Address: [address] [place] [address] Performed By: #### 2 4362-6 #### [facility] CLIA [id number] [address] [place] [address] [place] Potassium [Moles/Vol] 4.1 mmol/L Normal 3.7-5.1 [facility] Comment on above: Order Comment: Speci men Type: BLOOD SPECIMEN Ordering Facility: [facility] Address: [address] [place] [address] Performed By: #### 2 4362-6 #### [facility] CLIA [id number] [address] [place] [address] [place] Sodium [Moles/Vol] 134 mmol/L Low 136-144 [facility] Comment on above: Order Comment: Speci men Type: BLOOD SPECIMEN Ordering Facility: [facility] Address: [address] [place] [address] Performed By: #### 2 4362-6 #### [facility] CLIA [id number] [address] [place] [address] [place] Urea nitrogen [Mass/Vol] 19 mg/dL Normal 7-21 [facility] Comment on above: Order Comment: Speci men Type: BLOOD SPECIMEN Ordering Facility: [facility] Address: [address] [place] [address] Performed By: #### 2 4362-6 #### [facility] CLIA [id number] [address] [place] [address] [place] ANES POSTPROC EVALon 12-27-2 024 ANES POSTPROC EVAL HNO ID: [id number] Author: SIERRA FALK MD Service: ? Author Type: Anesthesiologist Type: Anesthesia Postprocedure Evaluation Filed: 07/13/2024 15:57 Note Text: POST ANESTHESIA EVALUATION NOTE : 1940 Procedure Summary Date: 07/13/24 Room / Location: [address] Anesthesia Start: 1222 Anesthesia Stop: 1337 [...] July 13, 2024 TIME: 3:57 PM CSN: [id number] Normal [facility] ANES PRE-OPon 07-13-2024 ANES PRE-OP HNO ID: [id number] Author: SIERRA FALK MD Service: ? Author Type: Anesthesiologist Type: Anesthesia Preprocedure Evaluation Filed: 07/13/2024 09:44 Note Text: ANESTHESIOLOGY DAY OF SURGERY NOTE : 1940 Procedure Information Date/Time: 07/13/24 1404 Procedure: ASPIRATION VITREOUS, CHOROIDAL FLUID, PARS PLANA APPROACH (Right: Eye) Location: [address] [facility] Surgeons: Savana Lopez MD Estimated [...] and consent discussed: yes. Patient / Responsible Green Party agrees to proceed: yes Patient / [...] 0.5 tablets by mouth every 12 hours. yqnaweywloy-zaitqvzlo-x ilanter (TRELEGY ELLIPTA) 100-62.5-25 mcg inhalation powder Inhale 1 Puff as instructed once daily. acetaminophen (TYLENOL) 325 mg tablet Take 2 tablets by mouth every 6 hours as needed for pain. ascorbic acid (more content not included)... Normal [facility] CASE MANAGEMon 07-13-2024 CASE MANAGEM HNO ID: [id number] Author: REBECA BELLE LSW Service: ? Author Type: Commercial Roofing Estimator Type: Care Mgt Progress Note Filed: 07/13/2024 16:25 Note Text: CARE MANAGEMENT WEEKEND PLANNING NOTE NO WEEKEND DISCHARGE Disposition: Fpc Facility Anticipated Discharge Date: TBD CM followed up with pt's daughter for SNF choices. Pt is currently in the OR- unable to send referrals in careport or complete "edit note" side bar. 1)[facility] 2)[facility] 3)[place] 4)[facility] 5)[facility] Care Will need accepting SNF and precert prior to dc. UPDATE 4:24pm: Referrals sent; awaiting response. Weekend [employer] Pager #: Please see Treatment Team for Care Management Weekend/Holiday coverage. SIGNATURE: SHAQUILLE Nuñez PATIENT NAME: Mel Castillo DATE: July 13, 2024 TIME: 3:09 PM PAGER/CONTACT #: [phone] [facility] CBC panel Auto (Bld)on 07-13 Erythrocyte distribution width (RBC) [Ratio] 17.6 % High 11.5-15.0 [facility] Comment on above: Order Comment: Speci men Type: BLOOD SPECIMENOrdering Facility: [facility] Address: [address] [place] [address] Performed By: #### 5 8410-2 ####[facility] [id number] [place] [address] [place] Hematocrit (Bld) [Volume fraction] 34.5 % Low 36.0-46.0 [facility] Comment on above: Order Comment: Speci men Type: BLOOD SPECIMENOrdering Facility: [facility] Address: [address] [place] [address] Performed By: #### 5 8410-2 ####[facility] [id number] [place] [address] [place] Hemoglobin (Bld) [Mass/Vol] 10.8 g/dL Low 11.5-15.5 [facility] Comment on above: Order Comment: Speci men Type: BLOOD SPECIMENOrdering Facility: [facility] Address: [address] [place] [address] Performed By: #### 5 8410-2 ####[facility] [id number] [place] [address] [place] MCH (RBC) [Entitic mass] 26.1 pg Normal 26.0-34.0 [facility] Comment on above: Order Comment: Speci men Type: BLOOD SPECIMENOrdering Facility: [facility] Address: [address] [place] [address] Performed By: #### 5 8410-2 ####[facility] [id number] [place] [address] [place] MCHC (RBC) [Mass/Vol] 31.3 g/dL Normal 30.5-36.0 [facility] Comment on above: Order Comment: Speci men Type: BLOOD SPECIMENOrdering Facility: [facility] Address: [address] [place] [address] Performed By: #### 5 8410-2 ####[facility] [id number] [place] [address] [place] MCV (RBC) [Entitic vol] 83.3 fL Normal 80.0-100.0 [facility] Comment on above: Order Comment: Speci men Type: BLOOD SPECIMENOrdering Facility: [facility] Address: [address] [place] [address] Performed By: #### 5 8410-2 ####[facility] [id number] [place] [address] [place] Nucleated RBC (Bld) [#/Vol] 10*3/uL Normal <0.01 [facility] Comment on above: Order Comment: Speci men Type: BLOOD SPECIMENOrdering Facility: [facility] Address: [address] [place] [address] Performed By: #### 5 8410-2 ####[facility] [id number] [place] [address] [place] Platelet mean volume (Bld) [Entitic vol] 9.7 fL Normal 9.0-12.7 [facility] Comment on above: Order Comment: Speci men Type: BLOOD SPECIMENOrdering Facility: [facility] Address: [address] [place] [address] Performed By: #### 5 8410-2 ####[facility] [id number] [place] [address] [place] Platelets (Bld) [#/Vol] 334 10*3/uL Normal 150-400 [facility] Comment on above: Order Comment: Speci men Type: BLOOD SPECIMENOrdering Facility: [facility] Address: [address] [place] [address] Performed By: #### 5 8410-2 ####[facility] [id number] [place] [address] [place] RBC (Bld) [#/Vol] 4.14 10*6/uL Normal 3.90-5.20 [facility] Comment on above: Order Comment: Speci men Type: BLOOD SPECIMENOrdering Facility: [facility] Address: [address] [place] [address] Performed By: #### 5 8410-2 ####[facility] [id number] [place] [address] [place] WBC (Bld) [#/Vol] 10.74 10*3/uL Normal 3.70-11.00 [facility] Comment on above: Order Comment: Speci men Type: BLOOD SPECIMENOrdering Facility: [facility] Address: [address] [place] [address] Performed By: #### 5 8410-2 ####[facility] [id number] [place] [address] [place] ECHO WITH AGITATED SALINE CO NTRASTon 07-13-2024 ECHO WITH AGITATED SALINE CONTRAST Echocardiography Report: Transthoracic Echo [facility] Bedside Date of service: 07/13/2024 3:54:27 PM ASSURANCE LAB TECHNICIAN Ordering physician: FELICIA LEVY Indication: Limited KYLE [...] * * * Final * * * [employer] [facility] : [id number] [id number] Normal [facility] NUTRITIONon 07-13-2024 NUTRITION HNO ID: [id number] Author: PAWAN PRESLEY DTR Service: Nutrition Therapy Author Type: Assistant Loan Processor Type: Nutrition Filed: 07/13/2024 11:50 Note Text: NUTRITION THERAPY STEAM FITTER SUPERVISOR MAINTENANCE NOTE SERVICE DATE: 07/13/2024 SERVICE TIME: 1045 [...] intake over: 5 days (As noted per [facility]. Kcal noted at an average of 50% per day of meals served.) Appetite: Unable to determine GI Symptoms: Unable to determine at this time Anthropometrics: There is no height or weight on file to calculate BMI. Food Preferences: Add nutritional supplements Allergies: No food allergies noted per [facility]. MNT Billing: $ Routine Care : 1-15 minutes SIGNATURE: Pawan Presley DTR PATIENT NAME: Mel Castillo DATE: July 13, 2024 TIME: 11:[address] [facility] OPERATIVE NOon 07-13-2024 OPERATIVE NO HNO ID: [id number] Author: SAVANA LOPEZ MD Service: Ophthalmology Author Type: Physician Type: Operative Report Filed: 07/13/2024 13:32 Note Text: [place] [address] [place] [facility] OPERATIVE REPORT LOG ID: [id number] Surgery/Procedure Date: 07/13/2024 Incision/Procedure Start Time: 12:43 PM Incision Close/Procedure End Time: 1:32 PM NAME: Mel Pop [facility] #: [id number] SURGEON(S) AND BOX TRUCK DRIVER(S): Surgeons and Role: * Savana Lopez MD [...] MD Vitreoretinal Surgery AND Ocular Inflammatory Diseases [facility] [place] Normal [facility] Renal function 2000 panelon 07-13-2024 Albumin [Mass/Vol] 3.5 g/dL Low 3.9-4.9 [facility] Comment on above: Order Comment: Speci men Type: BLOOD SPECIMENOrdering Facility: [facility] Address: [address] [place] [address] Performed By: #### 2 4362-6 ####[facility] [id number] [place] [address] [place] Anion gap [Moles/Vol] 10 mmol/L Normal 8-15 [facility] Comment on above: Order Comment: Speci men Type: BLOOD SPECIMENOrdering Facility: [facility] Address: [address] [place] [address] Performed By: #### 2 4362-6 ####[facility] [id number] [place] [address] [place] Calcium [Mass/Vol] 9.3 mg/dL Normal 8.5-10.2 [facility] Comment on above: Order Comment: Speci men Type: BLOOD SPECIMENOrdering Facility: [facility] Address: [address] [place] [address] Performed By: #### 2 4362-6 ####[facility] [id number] [place] [address] [place] Chloride [Moles/Vol] 100 mmol/L Normal 98-107 [facility] Comment on above: Order Comment: Speci men Type: BLOOD SPECIMENOrdering Facility: [facility] Address: [address] [place] [address] Performed By: #### 2 4362-6 ####[facility] [id number] [place] [address] [place] CO2 [Moles/Vol] 27 mmol/L Normal 22-30 [facility] Comment on above: Order Comment: Speci men Type: BLOOD SPECIMENOrdering Facility: [facility] Address: [address] [place] [address] Performed By: #### 2 4362-6 ####[facility] [id number] [address] STATES OF [facility] Creatinine [Mass/Vol] 0.92 mg/dL Normal 0.58-0.96 [facility] Comment on above: Order Comment: Speci men Type: BLOOD SPECIMENOrdering Facility: [facility] Address: [address] [place] [address] Performed By: #### 2 4362-6 ####[facility] [id number] [address] OF [facility] Creatinine and Glomerular filtration rate.predicted panel (S/P/Bld) 62 mL/min/1.73m??? Normal >=60 [facility] Comment on above: Order Comment: Speci men Type: BLOOD SPECIMENOrdering Facility: [facility] Address: [address] [place] [address] Result Comment: Isa mated Glomerular Filtration Rate [...] actual GFR. Performed By: #### 2 4362-6 ####[facility] [id number] [place] [address] [place] Glucose [Mass/Vol] 103 mg/dL High 74-99 [facility] Comment on above: Order Comment: Speci men Type: BLOOD SPECIMENOrdering Facility: [facility] Address: [address] [place] [address] Result Comment: The [place] Diabetes Association (ADA) provides guidance for cutoff [...] Standards of Medical Care in Diabetes 2016, [place] [employer]. Diabetes Care. 2016.39(Suppl 1). Performed By: #### 2 4362-6 ####[facility] [id number] [place] [address] [place] Phosphate [Mass/Vol] 3.5 mg/dL Normal 2.7-4.8 [facility] Comment on above: Order Comment: Samiri men Type: BLOOD SPECIMENOrdering Facility: [facility] Address: [address] [place], [place] [address] Performed By: #### 2 4362-6 ####[facility] [id number] [place] [address] [place] Potassium [Moles/Vol] 4.2 mmol/L Normal 3.7-5.1 [facility] Comment on above: Order Comment: Speci men Type: BLOOD SPECIMENOrdering Facility: [facility] Address: [address] [place], [place] [address] Performed By: #### 2 4362-6 ####[facility] [id number] [place] [id number] [address] [place] Sodium [Moles/Vol] 137 mmol/L Normal 136-144 [facility] Comment on above: Order Comment: Speci men Type: BLOOD SPECIMENOrdering Facility: [facility] Address: [address] [place] [address] Performed By: #### 2 4362-6 ####[facility] [id number] [place] [address] [place] Urea nitrogen [Mass/Vol] 12 mg/dL Normal 7-21 [facility] Comment on above: Order Comment: Speci men Type: BLOOD SPECIMENOrdering Facility: [facility] Address: [address] [place] [address] Performed By: #### 2 4362-6 ####[facility] [id number] [address] [place] BSCAN OD (RIGHT EYE)on 07-12 [facility] Radiology Study observation (narrative) [facility] CBC panel Auto (Bld)on 07-12 Erythrocyte distribution width (RBC) [Ratio] 17.8 % High 11.5-15.0 [facility] Comment on above: Order Comment: Speci men Type: BLOOD SPECIMENOrdering Facility: [facility] Address: [address] [place] [address] Performed By: #### 5 8410-2 ####[facility] [id number] [place] [address] [place] Hematocrit (Bld) [Volume fraction] 34.7 % Low 36.0-46.0 [facility] Comment on above: Order Comment: Speci men Type: BLOOD SPECIMENOrdering Facility: [facility] Address: [address] [place] [address] Performed By: #### 5 8410-2 ####[facility] [id number] [place] [address] [place] Hemoglobin (Bld) [Mass/Vol] 10.6 g/dL Low 11.5-15.5 [facility] Comment on above: Order Comment: Speci men Type: BLOOD SPECIMENOrdering Facility: [facility] Address: [address] [place] [address] Performed By: #### 5 8410-2 ####[facility]IA [id number] [place] [address] [place] MCH (RBC) [Entitic mass] 26.4 pg Normal 26.0-34.0 [facility] Comment on above: Order Comment: Speci men Type: BLOOD SPECIMENOrdering Facility: [facility] Address: [address] [place] [address] Performed By: #### 5 8410-2 ####[facility] [id number] [place] [address] [place] MCHC (RBC) [Mass/Vol] 30.5 g/dL Normal 30.5-36.0 [facility] Comment on above: Order Comment: Speci men Type: BLOOD SPECIMENOrdering Facility: [facility] Address: [address] [place] [address] Performed By: #### 5 8410-2 ####[facility] [id number] [place] [address] [place] MCV (RBC) [Entitic vol] 86.3 fL Normal 80.0-100.0 [facility] Comment on above: Order Comment: Speci men Type: BLOOD SPECIMENOrdering Facility: [facility] Address: [address] [place] [address] Performed By: #### 5 8410-2 ####[facility] [id number] [place] [address] [place] Nucleated RBC (Bld) [#/Vol] 10*3/uL Normal <0.01 [facility] Comment on above: Order Comment: Speci men Type: BLOOD SPECIMENOrdering Facility: [facility] Address: [address] [place] [address] Performed By: #### 5 8410-2 ####[facility] [id number] [place] [address] [place] Platelet mean volume (Bld) [Entitic vol] 9.9 fL Normal 9.0-12.7 [facility] Comment on above: Order Comment: Speci men Type: BLOOD SPECIMENOrdering Facility: [facility] Address: [address] [place] [address] Performed By: #### 5 8410-2 ####[facility] [id number] [place] [address] [place] Platelets (Bld) [#/Vol] 301 10*3/uL Normal 150-400 [facility] Comment on above: Order Comment: Speci men Type: BLOOD SPECIMENOrdering Facility: [facility] Address: [address] [place] [address] Performed By: #### 5 8410-2 ####[facility] [id number] [place] [address] [place] RBC (Bld) [#/Vol] 4.02 10*6/uL Normal 3.90-5.20 [facility] Comment on above: Order Comment: Speci men Type: BLOOD SPECIMENOrdering Facility: [facility] Address: [address] [place] [address] Performed By: #### 5 8410-2 ####[facility] [id number] [place] [id number] [place] WBC (Bld) [#/Vol] 10.07 10*3/uL Normal 3.70-11.00 [facility] Comment on above: Order Comment: Speci men Type: BLOOD SPECIMENOrdering Facility: [facility] Address: [address] [place] [address] Performed By: #### 5 8410-2 ####[facility] [id number] [place] [address] [place] PT EDon 07-12-2024 PT ED HNO ID: [id number] Author: GISSELL POPE RPh Service: Pharmacy Author [...] inpatient anticoagulant education. Gissell Pope RPh Normal [facility] Renal function 2000 panelon 07-12-2024 Albumin [Mass/Vol] 3.4 g/dL Low 3.9-4.9 [facility] Comment on above: Order Comment: Speci men Type: BLOOD SPECIMENOrdering Facility: [facility] Address: [address] [place] [address] Performed By: #### 2 4362-6 ####[facility] [id number] [place] [address] [place] Anion gap [Moles/Vol] 14 mmol/L Normal 8-15 [facility] Comment on above: Order Comment: Speci men Type: BLOOD SPECIMENOrdering Facility: [facility] Address: [address] [place] [address] Performed By: #### 2 4362-6 ####[facility] [id number] [place] [address] [place] Calcium [Mass/Vol] 9.3 mg/dL Normal 8.5-10.2 [facility] Comment on above: Order Comment: Speci men Type: BLOOD SPECIMENOrdering Facility: [facility] Address: [address] [place] [address] Performed By: #### 2 4362-6 ####[facility] [id number] [place] [address] [place] Chloride [Moles/Vol] 101 mmol/L Normal 98-107 [facility] Comment on above: Order Comment: Speci men Type: BLOOD SPECIMENOrdering Facility: [facility] Address: [address] [place] [address] Performed By: #### 2 4362-6 ####[facility] [id number] [place] [address] [place] CO2 [Moles/Vol] 21 mmol/L Low 22-30 [facility] Comment on above: Order Comment: Speci men Type: BLOOD SPECIMENOrdering Facility: [facility] Address: [address] [place] [address] Performed By: #### 2 4362-6 ####[facility] [id number] [place] [address] [place] Creatinine [Mass/Vol] 0.81 mg/dL Normal 0.58-0.96 [facility] Comment on above: Order Comment: Speci men Type: BLOOD SPECIMENOrdering Facility: [facility] Address: [address] [place] [address] Performed By: #### 2 4362-6 ####[facility] [id number] [place] [address] [place] Creatinine and Glomerular filtration rate.predicted panel (S/P/Bld) 72 mL/min/1.73m??? Normal >=60 [facility] Comment on above: Order Comment: Speci men Type: BLOOD SPECIMENOrdering Facility: [facility] Address: [address] [place] [address] Result Comment: Isa mated Glomerular Filtration Rate [...] actual GFR. Performed By: #### 2 4362-6 ####[facility] LABIA [id number] [place] [address] [place] Glucose [Mass/Vol] 100 mg/dL High 74-99 [facility] Comment on above: Order Comment: Specrobson mason Type: BLOOD SPECIMENOrdering Facility: [facility] Address: [address] [place] [address] Result Comment: The [place] Diabetes Association (ADA) provides guidance for cutoff [...] Standards of Medical Care in Diabetes 2016, [place] [employer]. Diabetes Care. 2016.39(Suppl 1). Performed By: #### 2 4362-6 ####[facility] LABIA [id number] [place] [address] [place] Phosphate [Mass/Vol] 2.7 mg/dL Normal 2.7-4.8 [facility] Comment on above: Order Comment: Rhina mason Type: BLOOD SPECIMENOrdering Facility: [facility] Address: [address] [place] [address] Performed By: #### 2 4362-6 ####[facility] LABIA [id number] [place] [address] [place] Potassium [Moles/Vol] 4.0 mmol/L Normal 3.7-5.1 [facility] Comment on above: Order Comment: Speci men Type: BLOOD SPECIMENOrdering Facility: [facility] Address: [address] [place] [address] Performed By: #### 2 4362-6 ####[facility]CLIA [id number] [place] [address] [place] Sodium [Moles/Vol] 136 mmol/L Normal 136-144 [facility] Comment on above: Order Comment: Speci men Type: BLOOD SPECIMENOrdering Facility: [facility] Address: [address] [place] [address] Performed By: #### 2 4362-6 ####[facility]CLIA [id number] [place] [address] [place] Urea nitrogen [Mass/Vol] 12 mg/dL Normal 7-21 [facility] Comment on above: Order Comment: Speci men Type: BLOOD SPECIMENOrdering Facility: [facility] Address: [address] [place] [address] Performed By: #### 2 4362-6 ####[facility]CLIA [id number] [place] [address] [place] Right eye Photo documentatio non 07-12-2024 [facility] Radiology Study observation (narrative) [facility] THERAPY NTon 07-12-2024 THERAPY NT HNO ID: [id number] Author: RYANN GUZMÁN OT/[place] Service: Occupational Therapy Author Type: Occupational Therapist Type: Therapy (PT/OT/Speech/Resp) Filed: 07/12/2024 12:26 Note Text: OCCUPATIONAL THERAPY MISSED VISIT SERVICE DATE: 07/12/2024 SERVICE TIME: 1226 ROOM: [place] [address] ([facility] OPHTHALMOLOGY) Patient not seen due to Test / Procedure. SIGNATURE: JUANY Willett PATIENT NAME: Mel Castillo DATE: July 12, 2024 TIME: 12:[address] [facility] CBC panel Auto (Bld)on 07-11 Erythrocyte distribution width (RBC) [Ratio] 17.6 % High 11.5-15.0 [facility] Comment on above: Order Comment: Speci men Type: BLOOD SPECIMEN [facility] Address: [address] [place] [address] Performed By: #### 5 8410-2 #### [facility] CLIA [id number] [address] [place] [address] [place] Hematocrit (Bld) [Volume fraction] 32.3 % Low 36.0-46.0 [facility] Comment on above: Order Comment: Speci men Type: BLOOD SPECIMEN [facility] Address: [address] [place] [address] Performed By: #### 5 8410-2 #### [facility] CLIA [id number] [address] [place] [address] [place] Hemoglobin (Bld) [Mass/Vol] 10.5 g/dL Low 11.5-15.5 [facility] Comment on above: Order Comment: Speci men Type: BLOOD SPECIMEN [facility] Address: [address] [place] [address] Performed By: #### 5 8410-2 #### [facility] CLIA [id number] [address] [place] [address] [place] MCH (RBC) [Entitic mass] 27.0 pg Normal 26.0-34.0 [facility] Comment on above: Order Comment: Speci men Type: BLOOD SPECIMEN [facility] Address: [address] [place] [address] Performed By: #### 5 8410-2 #### [facility] CLIA [id number] [address] [place] [address] [place] MCHC (RBC) [Mass/Vol] 32.5 g/dL Normal 30.5-36.0 [facility] Comment on above: Order Comment: Speci men Type: BLOOD SPECIMEN [facility] Address: [address] [place] [address] Performed By: #### 5 8410-2 #### [facility] CLIA [id number] [address] [place] [address] [place] MCV (RBC) [Entitic vol] 83.0 fL Normal 80.0-100.0 [facility] Comment on above: Order Comment: Speci men Type: BLOOD SPECIMEN [facility] Address: [address] [place] [address] Performed By: #### 5 8410-2 #### [facility] CLIA [id number] [address] [place] [address] [place] Nucleated RBC (Bld) [#/Vol] 10*3/uL Normal <0.01 [facility] Comment on above: Order Comment: Speci men Type: BLOOD SPECIMEN [facility] Address: [address] [place] [address] Performed By: #### 5 8410-2 #### [facility] CLIA [id number] [address] [place] [address] [place] Platelet mean volume (Bld) [Entitic vol] 9.9 fL Normal 9.0-12.7 [facility] Comment on above: Order Comment: Speci men Type: BLOOD SPECIMEN [facility] Address: [address] [place] [address] Performed By: #### 5 8410-2 #### [facility] CLIA [id number] [address] [place] [address] [place] Platelets (Bld) [#/Vol] 289 10*3/uL Normal 150-400 [facility] Comment on above: Order Comment: Speci men Type: BLOOD SPECIMEN [facility] Address: [address] [place] [address] Performed By: #### 5 8410-2 #### [facility] CLIA [id number] [address] [place] [address] [place] RBC (Bld) [#/Vol] 3.89 10*6/uL Low 3.90-5.20 [facility] Comment on above: Order Comment: Speci men Type: BLOOD SPECIMEN [facility] Address: [address] [place] [address] Performed By: #### 5 8410-2 #### [facility] CLIA [id number] [address] [place] [address] [place] WBC (Bld) [#/Vol] 8.32 10*3/uL Normal 3.70-11.00 [facility] Comment on above: Order Comment: Speci men Type: BLOOD SPECIMEN [facility] Address: [address] [place] [address] Performed By: #### 5 8410-2 #### [facility] CLIA [id number] [address] [place] [address] [place] Renal function 2000 panelon 07-11-2024 Albumin [Mass/Vol] 3.4 g/dL Low 3.9-4.9 [facility] Comment on above: Order Comment: Speci men Type: BLOOD SPECIMENOrdering Facility: [facility] Address: [address] [place] [address] Performed By: #### 2 4362-6 ####[facility] LABCLIA [id number] [place] [address] [place] Anion gap [Moles/Vol] 11 mmol/L Normal 8-15 [facility] Comment on above: Order Comment: Speci men Type: BLOOD SPECIMENOrdering Facility: [facility] Address: [address] [place] [address] Performed By: #### 2 4362-6 ####[facility] LABCLIA [id number] [place] [address] [place] Calcium [Mass/Vol] 8.9 mg/dL Normal 8.5-10.2 [facility] Comment on above: Order Comment: Speci men Type: BLOOD SPECIMENOrdering Facility: [facility] Address: [address] [place] [address] Performed By: #### 2 4362-6 ####[facility] LABCLIA [id number] [place] [address] [place] Chloride [Moles/Vol] 103 mmol/L Normal 98-107 [facility] Comment on above: Order Comment: Speci men Type: BLOOD SPECIMENOrdering Facility: [facility] Address: [address] [place] [address] Performed By: #### 2 4362-6 ####[facility]CLIA [id number] [place] [address] [place] CO2 [Moles/Vol] 23 mmol/L Normal 22-30 [facility] Comment on above: Order Comment: Speci men Type: BLOOD SPECIMENOrdering Facility: [facility] Address: [address] [place] [address] Performed By: #### 2 4362-6 ####[facility] LABCLIA [id number] [place] [address] [place] Creatinine [Mass/Vol] 0.91 mg/dL Normal 0.58-0.96 [facility] Comment on above: Order Comment: Speci men Type: BLOOD SPECIMENOrdering Facility: [facility] Address: [address] [place] [address] Performed By: #### 2 4362-6 ####[facility] LABCLIA [id number] [place] [address] [place] Creatinine and Glomerular filtration rate.predicted panel (S/P/Bld) 62 mL/min/1.73m??? Normal >=60 [facility] Comment on above: Order Comment: Rhina mason Type: BLOOD SPECIMENOrdering Facility: [facility] Address: [address] [place] [address] Result Comment: Isa mated Glomerular Filtration Rate [...] actual GFR. Performed By: #### 2 4362-6 ####[facility] LABIA [id number] [place] [address] [place] Glucose [Mass/Vol] 98 mg/dL Normal 74-99 [facility] Comment on above: Order Comment: Rhina mason Type: BLOOD SPECIMENOrdering Facility: [facility] Address: [address] [place] [address] Result Comment: The [place] [employer] (ADA) provides guidance for cutoff [...] Standards of Medical Care in Diabetes 2016, [place] [employer]. Diabetes Care. 2016.39(Suppl 1). Performed By: #### 2 4362-6 ####[facility] [id number] [place] [address] [place] Phosphate [Mass/Vol] 2.8 mg/dL Normal 2.7-4.8 [facility] Comment on above: Order Comment: Rhina mason Type: BLOOD SPECIMENOrdering Facility: [facility] Address: [address] [place] [id number] Performed By: #### 2 4362-6 ####[facility] LABCLIA [id number] [place] [address] [place] Potassium [Moles/Vol] 3.6 mmol/L Low 3.7-5.1 [facility] Comment on above: Order Comment: Speci men Type: BLOOD SPECIMENOrdering Facility: [facility] Address: [address] [place] [address] Performed By: #### 2 4362-6 ####[facility] LABCLIA [id number] [place] [address] [place] Sodium [Moles/Vol] 137 mmol/L Normal 136-144 [facility] Comment on above: Order Comment: Speci men Type: BLOOD SPECIMENOrdering Facility: [facility] Address: [address] [place] [address] Performed By: #### 2 4362-6 ####[facility] LABCLIA [id number] [place] [address] [place] Urea nitrogen [Mass/Vol] 15 mg/dL Normal 7-21 [facility] Comment on above: Order Comment: Speci men Type: BLOOD SPECIMENOrdering Facility: [facility] Address: [address] [place] [address] Performed By: #### 2 4362-6 ####[facility] LABIA [id number] [place] [id number] [place] CASE MANAGEMon 07-10-2024 CASE MANAGEM HNO ID: [id number] Author: TREY HUGHES LSW Service: Social Work Author Type: Commercial Roofing Estimator Type: Care Mgt Progress Note Filed: 07/10/2024 14:42 Note Text: CARE MANAGEMENT PROGRESS NOTE SERVICE DATE: 07/10/2024 SERVICE TIME: 2:38 PM LOS: 3 days Post-Acute Discharge Planning Patient Goal(s): Increase strength [place] Explained: [place] Given: Yes Post-Acute Discharge Plan: [...] July 10, 2024 TIME: 2:[address] [facility] CBC panel Auto (Bld)on 07-10 Erythrocyte distribution width (RBC) [Ratio] 17.5 % High 11.5-15.0 [facility] Comment on above: Order Comment: Rhina mason Type: BLOOD SPECIMEN Ordering Facility: [facility] Address: [address] [place] [address] Performed By: #### 2 276-4 #### [facility] CLIA [id number] [address] [place] [address] [place] Hematocrit (Bld) [Volume fraction] 31.7 % Low 36.0-46.0 [facility] Comment on above: Order Comment: Rhina mason Type: BLOOD SPECIMEN Ordering Facility: [facility] Address: [address] [place] [address] Performed By: #### 2 276-4 #### [facility] CLIA [id number] [address] [place] [address] [place] Hemoglobin (Bld) [Mass/Vol] 9.9 g/dL Low 11.5-15.5 [facility] Comment on above: Order Comment: Rhina mason Type: BLOOD SPECIMEN Ordering Facility: [facility] Address: [address] [place] [address] Performed By: #### 2 276-4 #### [facility] CLIA [id number] [address] [place] [address] [place] MCH (RBC) [Entitic mass] 26.0 pg Normal 26.0-34.0 [facility] Comment on above: Order Comment: Rhina mason Type: BLOOD SPECIMEN Ordering Facility: [facility] Address: [address] [place] [address] Performed By: #### 2 276-4 #### [facility] CLIA [id number] [address] [place] [address] [place] MCHC (RBC) [Mass/Vol] 31.2 g/dL Normal 30.5-36.0 [facility] Comment on above: Order Comment: Speci men Type: BLOOD SPECIMEN Ordering Facility: [facility] Address: [address] [place] [address] Performed By: #### 2 276-4 #### [facility] CLIA [id number] [address] [place] [address] [place] MCV (RBC) [Entitic vol] 83.2 fL Normal 80.0-100.0 [facility] Comment on above: Order Comment: Speci men Type: BLOOD SPECIMEN Ordering Facility: [facility] Address: [address] [place] [address] Performed By: #### 2 276-4 #### [facility] CLIA [id number] [address] [place] [address] [place] Nucleated RBC (Bld) [#/Vol] 10*3/uL Normal <0.01 [facility] Comment on above: Order Comment: Speci men Type: BLOOD SPECIMEN Ordering Facility: [facility] Address: [address] [place] [address] Performed By: #### 2 276-4 #### [facility] CLIA [id number] [address] [place] [address] [place] Platelet mean volume (Bld) [Entitic vol] 10.3 fL Normal 9.0-12.7 [facility] Comment on above: Order Comment: Speci men Type: BLOOD SPECIMEN Ordering Facility: [facility] Address: [address] [place] [address] Performed By: #### 2 276-4 #### [facility] CLIA [id number] [address] [place] [address] [place] Platelets (Bld) [#/Vol] 336 10*3/uL Normal 150-400 [facility] Comment on above: Order Comment: Speci men Type: BLOOD SPECIMEN Ordering Facility: [facility] Address: [address] [place] [address] Performed By: #### 2 276-4 #### [facility] CLIA [id number] [address] [place] [address] [place] RBC (Bld) [#/Vol] 3.81 10*6/uL Low 3.90-5.20 [facility] Comment on above: Order Comment: Speci men Type: BLOOD SPECIMEN Ordering Facility: [facility] Address: [address] [place] [address] Performed By: #### 2 276-4 #### [facility] CLIA [id number] [address] [place] [address] [place] WBC (Bld) [#/Vol] 6.35 10*3/uL Normal 3.70-11.00 [facility] Comment on above: Order Comment: Speci men Type: BLOOD SPECIMEN Ordering Facility: [facility] Address: [address] [place] [address] Performed By: #### 2 276-4 #### [facility] CLIA [id number] [address] [place] [address] [place] Renal function 2000 panelon 07-10-2024 Albumin [Mass/Vol] 3.5 g/dL Low 3.9-4.9 [facility] Comment on above: Order Comment: Speci men Type: BLOOD SPECIMEN [facility] Facility[facility] Address: [address] [place] [address] Performed By: #### 2 4362-6 #### [facility] CLIA [id number] [address] [place] [address] [place] Anion gap [Moles/Vol] 12 mmol/L Normal 8-15 [facility] Comment on above: Order Comment: Speci men Type: BLOOD SPECIMEN [facility]ing Facility: [facility] Address: [address] [place], [place] [address] Performed By: #### 2 4362-6 #### [facility] CLIA [id number] [address] [place] [address] [place] Calcium [Mass/Vol] 9.0 mg/dL Normal 8.5-10.2 [facility] Comment on above: Order Comment: Speci men Type: BLOOD SPECIMEN [facility]ing Facility: [facility] Address: [address] [place], [place] [address] Performed By: #### 2 4362-6 #### [facility] CLIA [id number] [address] [place] [address] [place] Chloride [Moles/Vol] 104 mmol/L Normal 98-107 [facility] Comment on above: Order Comment: Speci men Type: BLOOD SPECIMEN [facility]ing Facility: [facility] Address: [address] [place] [address] Performed By: #### 2 4362-6 #### [facility] CLIA [id number] [address] [place] [address] [place] CO2 [Moles/Vol] 22 mmol/L Normal 22-30 [facility] Comment on above: Order Comment: Speci men Type: BLOOD SPECIMEN Ordering Facility: [facility] Address: [address] [place], [place] [address] Performed By: #### 2 4362-6 #### [facility] CLIA [id number] [address] [place], [place] [address] [place] Creatinine [Mass/Vol] 0.93 mg/dL Normal 0.58-0.96 [facility] Comment on above: Order Comment: Speci men Type: BLOOD SPECIMEN Ordering Facility: [facility] Address: [address] [place], [place] [address] Performed By: #### 2 4362-6 #### [facility] CLIA [id number] [address] [place], [place] [address] [place] Creatinine and Glomerular filtration rate.predicted panel (S/P/Bld) 61 mL/min/1.73m??? Normal >=60 [facility] Comment on above: Order Comment: Rhina mason Type: BLOOD SPECIMEN [facility]ing Facility: [facility] Address: [address] [place] [address] Result Comment: Isa mated Glomerular Filtration Rate [...] GFR. Performed By: #### 2 4362-6 #### [facility] CLIA [id number] [address] [place] [address] [place] Glucose [Mass/Vol] 102 mg/dL High 74-99 [facility] Comment on above: Order Comment: Rhina mason Type: BLOOD SPECIMEN [facility]ing Facility: [facility] Address: [address] [place] [address] Result Comment: The [place] [employer] (ADA) provides guidance for cutoff [...] Standards of Medical Care in Diabetes 2016, [place] [employer]. Diabetes Care. 2016.39(Suppl 1). Performed By: #### 2 4362-6 #### [facility] CLIA [id number] [address] [place] [address] [place] Phosphate [Mass/Vol] 2.6 mg/dL Low 2.7-4.8 [facility] Comment on above: Order Comment: Speci men Type: BLOOD SPECIMEN Ordering Facility: [facility] Address: [address] [place] [address] Performed By: #### 2 4362-6 #### [facility] CLIA [id number] [address] [place] [address] [place] Potassium [Moles/Vol] 3.9 mmol/L Normal 3.7-5.1 [facility] Comment on above: Order Comment: Speci men Type: BLOOD SPECIMEN Ordering Facility: [facility] Address: [address] [place] [address] Performed By: #### 2 4362-6 #### [facility] CLIA [id number] [address] [place] [address] [place] Sodium [Moles/Vol] 138 mmol/L Normal 136-144 [facility] Comment on above: Order Comment: Speci men Type: BLOOD SPECIMEN Ordering Facility: [facility] Address: [address] [place] [address] Performed By: #### 2 4362-6 #### [facility] CLIA [id number] [address] [place] [address] [place] Urea nitrogen [Mass/Vol] 21 mg/dL Normal 7-21 [facility] Comment on above: Order Comment: Speci men Type: BLOOD SPECIMEN Ordering Facility: [facility] Address: [address] [place] [address] Performed By: #### 2 4362-6 #### [facility] CLIA [id number] [address] [place], [place] [address] [place] THERAPY NTon 07-10-2024 THERAPY NT HNO ID: [id number] Author: SANTIAGO GUZMAN OT/L Service: Occupational Therapy Author Type: Occupational Therapist Type: Therapy (PT/OT/Speech/Resp) Filed: 07/10/2024 10:00 Note Text: Occupational Therapy Evaluation Summary SERVICE DATE: 07/10/2024 SERVICE TIME: 0840 to 919 ROOM: [place] [address] OT 6 Clicks Score: 15 DISCHARGE RECOMMENDATIONS [...] "shadows" and occasionally the color while / programmer developer colors. SNF rec at this time pending [...] Muscle Weakness (generalized) TREATMENT INTERVENTIONS Evaluation, Self Correction Management (80062) Timed Code Treatment (minutes): 25 Skilled Treatment [...] Sit to Stand, Standing Balance to Improve Nash with ADLs/Self-Care, Sitting Balance to Improve Nash with ADLs/Self-Care, Life Roles/Routines/Habits THERAPEUTIC SKILLS USED Therapeutic Use of Self, Physical Assist, Movement Facilitation, Management of Critical Lines, Tubes and/or Drains FUNCTIONAL STATUS Activities of Daily Living Assist Level Additional Information Feeding Minimal Assistance Grooming Moderate Assistance Bathing Upper Body Minimal Assistance Bathing Lower Body Ma (more content not included)... Normal [facility] CBC panel Auto (Bld)on 07-09 Erythrocyte distribution width (RBC) [Ratio] 17.7 % High 11.5-15.0 [facility] Comment on above: Order Comment: Speci men Type: BLOOD SPECIMEN Ordering Facility: [facility] Address: [address] [place] [address] Performed By: #### 2 4362-6 #### [facility] CLIA [id number] [address] [place] [address] [place] Hematocrit (Bld) [Volume fraction] 33.9 % Low 36.0-46.0 [facility] Comment on above: Order Comment: Speci men Type: BLOOD SPECIMEN Ordering Facility: [facility] Address: [address] [place] [address] Performed By: #### 2 4362-6 #### [facility] CLIA [id number] [address] [place] [address] [place] Hemoglobin (Bld) [Mass/Vol] 10.5 g/dL Low 11.5-15.5 [facility] Comment on above: Order Comment: Speci men Type: BLOOD SPECIMEN Ordering Facility: [facility] Address: [address] [place] [address] Performed By: #### 2 4362-6 #### [facility] CLIA [id number] [address] [place] [address] [place] MCH (RBC) [Entitic mass] 26.6 pg Normal 26.0-34.0 [facility] Comment on above: Order Comment: Speci men Type: BLOOD SPECIMEN Ordering Facility: [facility] Address: [address] [place] [address] Performed By: #### 2 4362-6 #### [facility] CLIA [id number] [address] [place] [address] [place] MCHC (RBC) [Mass/Vol] 31.0 g/dL Normal 30.5-36.0 [facility] Comment on above: Order Comment: Speci men Type: BLOOD SPECIMEN Ordering Facility: [facility] Address: [address] [place] [address] Performed By: #### 2 4362-6 #### [facility] CLIA [id number] [address] [place] [address] [place] MCV (RBC) [Entitic vol] 86.0 fL Normal 80.0-100.0 [facility] Comment on above: Order Comment: Speci men Type: BLOOD SPECIMEN Ordering Facility: [facility] Address: [address] [place] [address] Performed By: #### 2 4362-6 #### [facility] CLIA [id number] [address] [place] [address] [place] Nucleated RBC (Bld) [#/Vol] 10*3/uL Normal <0.01 [facility] Comment on above: Order Comment: Speci men Type: BLOOD SPECIMEN Ordering Facility: [facility] Address: [address] [place] [address] Performed By: #### 2 4362-6 #### [facility] CLIA [id number] [address] [place] [address] [place] Platelet mean volume (Bld) [Entitic vol] 10.4 fL Normal 9.0-12.7 [facility] Comment on above: Order Comment: Speci men Type: BLOOD SPECIMEN Ordering Facility: [facility] Address: [address] [place] [address] Performed By: #### 2 4362-6 #### [facility] CLIA [id number] [address] [place] [address] [place] Platelets (Bld) [#/Vol] 346 10*3/uL Normal 150-400 [facility] Comment on above: Order Comment: Speci men Type: BLOOD SPECIMEN Ordering Facility: [facility] Address: [address] [place] [address] Performed By: #### 2 4362-6 #### [facility] CLIA [id number] [address] [place] [address] [place] RBC (Bld) [#/Vol] 3.94 10*6/uL Normal 3.90-5.20 [facility] Comment on above: Order Comment: Speci men Type: BLOOD SPECIMEN Ordering Facility: [facility] Address: [address] [place] [address] Performed By: #### 2 4362-6 #### [facility] CLIA [id number] [address] [place] [address] [place] WBC (Bld) [#/Vol] 8.22 10*3/uL Normal 3.70-11.00 [facility] Comment on above: Order Comment: Speci men Type: BLOOD SPECIMEN Ordering Facility: [facility] Address: [address] [place] [address] Performed By: #### 2 4362-6 #### [facility] CLIA [id number] [address] [place] [address] [place] Renal function 2000 panelon 07-09-2024 Albumin [Mass/Vol] 3.6 g/dL Low 3.9-4.9 [facility] Comment on above: Order Comment: Speci men Type: BLOOD SPECIMEN Ordering Facility: [facility] Address: [address] [place] [address] Performed By: #### 2 4362-6 #### [facility] CLIA [id number] [address] [place] [address] [place] Anion gap [Moles/Vol] 11 mmol/L Normal 8-15 [facility] Comment on above: Order Comment: Speci men Type: BLOOD SPECIMEN Ordering Facility: [facility] Address: [address] [place] [address] Performed By: #### 2 4362-6 #### [facility] CLIA [id number] [address] [place] [address] [place] Calcium [Mass/Vol] 8.8 mg/dL Normal 8.5-10.2 [facility] Comment on above: Order Comment: Speci men Type: BLOOD SPECIMEN Ordering Facility: [facility] Address: [address] [place] [address] Performed By: #### 2 4362-6 #### [facility] CLIA [id number] [address] [place] [address] [place] Chloride [Moles/Vol] 103 mmol/L Normal 98-107 [facility] Comment on above: Order Comment: Speci men Type: BLOOD SPECIMEN Ordering Facility: [facility] Address: [address] [place] [address] Performed By: #### 2 4362-6 #### [facility] CLIA [id number] [address] [place] [address] [place] CO2 [Moles/Vol] 22 mmol/L Normal 22-30 [facility] Comment on above: Order Comment: Speci men Type: BLOOD SPECIMEN Ordering Facility: [facility] Address: [address] [place] [address] Performed By: #### 2 4362-6 #### [facility] CLIA [id number] [address] [place] [address] [place] Creatinine [Mass/Vol] 0.94 mg/dL Normal 0.58-0.96 [facility] Comment on above: Order Comment: Speci men Type: BLOOD SPECIMEN Ordering Facility: [facility] Address: [address] [place] [address] Performed By: #### 2 4362-6 #### [facility] CLIA [id number] [address] [place] [address] [place] Creatinine and Glomerular filtration rate.predicted panel (S/P/Bld) 60 mL/min/1.73m??? Normal >=60 [facility] Comment on above: Order Comment: Speci men Type: BLOOD SPECIMEN Ordering Facility: [facility] Address: [address] [place] [address] Result Comment: Isa mated Glomerular Filtration Rate [...] GFR. Performed By: #### 2 4362-6 #### [facility] CLIA [id number] [address] [place] [address] [place] Glucose [Mass/Vol] 158 mg/dL High 74-99 [facility] Comment on above: Order Comment: Rhina mason Type: BLOOD SPECIMEN Ordering Facility: [facility] Address: [address] [place] [address] Result Comment: The [place] Diabetes Association (ADA) provides guidance for cutoff [...] Standards of Medical Care in Diabetes 2016, [place] [employer]. Diabetes Care. 2016.39(Suppl 1). Performed By: #### 2 4362-6 #### [facility] CLIA [id number] [address] [place] [address] [place] Phosphate [Mass/Vol] 2.0 mg/dL Low 2.7-4.8 [facility] Comment on above: Order Comment: Rhina mason Type: BLOOD SPECIMEN Ordering Facility: [facility] Address: [address] [place] [address] Performed By: #### 2 4362-6 #### [facility] CLIA [id number] [address] [place], [place] [address] [place] Potassium [Moles/Vol] 4.1 mmol/L Normal 3.7-5.1 [facility] Comment on above: Order Comment: Rhina mason Type: BLOOD SPECIMEN Ordering Facility: [facility] Address: [address] [place] [address] Performed By: #### 2 4362-6 #### [facility] CLIA [id number] [address] [place] [address] [place] Sodium [Moles/Vol] 136 mmol/L Normal 136-144 [facility] Comment on above: Order Comment: Samiri men Type: BLOOD SPECIMEN Ordering Facility: [facility] Address: [address] [place] [address] Performed By: #### 2 4362-6 #### [facility] CLIA [id number] [address] [place] [address] [place] Urea nitrogen [Mass/Vol] 18 mg/dL Normal 7-21 [facility] Comment on above: Order Comment: Samiri men Type: BLOOD SPECIMEN Ordering Facility: [facility] Address: [address] [place] [address] Performed By: #### 2 4362-6 #### [facility] CLIA [id number] [address] [place] [address] [place] CONSULTon 07-08-2024 CONSULT HNO ID: [id number] Author: JARED GILMORE MD Service: Ophthalmology Author [...] Tue-Tue, 7 am - 5 pm, page [phone] Mon-Tue, 5 pm - 7 am, page [phone] Weekends (Fri 5 pm to Tue 7 am), page [phone] EXAM: Base Eye Exam Visual Acuity Right Left Dist sc CF at 3' Tonometry (Applanation, 8:30 AM) Right Left Pressure 14 Pupils Dark Light Shape React Right 6 (more content not included)... Normal [facility] [id number] 07-07-2024 [id number] Normal [facility] BASIC METABOLIC PANELon 06-18 Anion gap [Moles/Vol] 4 mmol/L Normal 3-13 [facility] Comment on above: Performed By: #### L AB15 ####Tax Services Manager: VELMA VALADEZ ([phone])[facility] ([facility])[address] [place] [address] Calcium [Mass/Vol] 8.7 mg/dL Low 8.8-10.0 [facility] Comment on above: Performed By: #### L AB15 ####Tax Services Manager: VELMA VALADEZ ([phone])[facility] ([facility])[address] [place] [address] [place] Chloride [Moles/Vol] 111 mmol/L High 98-107 [facility] Comment on above: Performed By: #### L AB15 ####Tax Services Manager: VELMA VALADEZ ([phone])[facility] ([facility])[address] [place] [address] [place] CO2 [Moles/Vol] 23 mmol/L Normal 23-31 [facility] Comment on above: Performed By: #### L AB15 ####Tax Services Manager: VELMA VALADEZ ([phone])[facility] ([facility])[address] [place] [address] Creatinine [Mass/Vol] 0.84 mg/dL Normal 0.57-1.11 [facility] Comment on above: Performed By: #### L AB15 ####Tax Services Manager: VELMA VALADEZ ([phone])[facility] ([facility])[address] [place] [address] GLOMERULAR FILTRATION RATE ML/MIN/1.73 SQ M.PREDICTED 68.6 mL/min/1.73m*2 Normal >60.0 [facility] Comment on above: Result Comment: Calc ulation based on the Chronic Kidney Disease Epidemiology Collaboration (CKD-EPI) equation refit without adjustment for race Performed By: #### L AB15 ####Tax Services Manager: VELMA VALADEZ ([phone])[facility])[address] [place] [address] Glucose [Mass/Vol] 102 mg/dL Normal 82-115 [facility] Comment on above: Performed By: #### L AB15 ####Tax Services Manager: VELMA VALADEZ ([phone])[facility])[address] [place] [address] Potassium [Moles/Vol] 4.0 mmol/L Normal 3.5-5.1 [facility] Comment on above: Result Comment: [facility] potassium values may be up to 0.5 mmol/L lower than serum values. Performed By: #### L AB15 ####Tax Services Manager: VELMA VALADEZ ([phone])[facility] ([facility])[address] [place] [address] Sodium [Moles/Vol] 138 mmol/L Normal 136-145 [facility] Comment on above: Performed By: #### L AB15 ####Tax Services Manager: VELMA VALADEZ ([phone])[address] Urea nitrogen [Mass/Vol] 19 mg/dL Normal 9-23 [facility] Comment on above: Performed By: #### L AB15 ####Tax Services Manager: VELMA VALADEZ ([phone])[facility])[address] [place] [address] Basic metabolic 1998 panelon 07-07-2024 Anion gap [Moles/Vol] 4 mmol/L 3 - 13 mmol/L [facility] Calcium [Mass/Vol] 8.7 mg/dL Low 8.8 - 10. 0 mg/dL [facility] Chloride [Moles/Vol] 111 mmol/L High 98 - 10 7 mmol/L [facility] CO2 [Moles/Vol] 23 mmol/L 23 - 31 mmol/L [facility] Creatinine [Mass/Vol] 0.84 mg/dL 0.57 - 1.11 mg/dL [facility] GFR/1.73 sq M.predicted (S/P/Bld) [Vol rate/Area] 68.6 mL/min - PINF [facility] Comment on above: Calculation based on the Chronic Kidney Disease Epidemiology Collaboration (CKD-EPI) equation refit without adjustment for race Glucose [Mass/Vol] 102 mg/dL 82 - 115 mg/dL [facility] Interpretation and review of laboratory results Abnormal [facility] Potassium [Moles/Vol] 4 mmol/L 3.5 - 5.1 mmol/L [facility] Comment on above: Plasma potassium chris ues may be up to 0.5 mmol/L lower than serum values. Sodium [Moles/Vol] 138 mmol/L 136 - 145 mmol/L [facility] Urea nitrogen [Mass/Vol] 19 mg/dL 9 - 23 mg/dL [facility] CBC W Auto Differential pane l (Bld)Ordered By: Devika Eisenberg on 07-07-2024 Basophils (Bld) [#/Vol] 0 10*3/uL 0.0 - 0.2 10*3/uL [facility] Basophils/100 WBC (Bld) 0.4 % 0.0 - 2.0 % [facility] Eosinophils (Bld) [#/Vol] 0.1 10*3/uL 0.0 - 0.5 10*3/uL [facility] Eosinophils/100 WBC (Bld) 1.3 % 0.0 - 6.0 % [facility] Erythrocyte distribution width (RBC) [Ratio] 17.6 % High 11.5 - 15.0 % [facility] Hematocrit (Bld) [Volume fraction] 29.9 % Low 35.0 - 47.0 % [facility] Hemoglobin (Bld) [Mass/Vol] 9.1 g/dL Low 11.7 - 16.0 g/dL [facility] Immature granulocytes (Bld) [#/Vol] 0 10*3/uL NINF - 0.1 10*3/uL [facility] [employer] Immature granulocytes/100 WBC (Bld) 0.2 % 0.0 - 2.0 % [facility] Interpretation and review of laboratory results Abnormal [facility] [employer] Lymphocytes (Bld) [#/Vol] 1.2 10*3/uL 1.0 - 4.3 10*3/uL [facility] [employer] Lymphocytes/100 WBC (Bld) 22 % 15.0 - 45.0 % [facility] MCH (RBC) [Entitic mass] 25.9 pg Low 26.0 - 34.0 pg [facility] MCHC (RBC) [Mass/Vol] 30.4 % Low 30.5 - 36.0 % [facility] [employer] MCV (RBC) [Entitic vol] 84.9 fL 77.0 - 99.0 fL [facility] [employer] Monocytes (Bld) [#/Vol] 0.6 10*3/uL 0.0 - 0.9 10*3/uL [facility] [employer] Monocytes/100 WBC (Bld) 10 % 5.0 - 13.0 % [facility] Neutrophils (Bld) [#/Vol] 3.7 10*3/uL 1.8 - 7.5 10*3/uL [facility] Neutrophils/100 WBC (Bld) 66.1 % 38.0 - 82.0 % [facility] [employer] Nucleated RBC/100 WBC (Bld) [Ratio] 0 % [facility] [employer] Platelet mean volume (Bld) [Entitic vol] 9.8 fL 9.0 - 12.7 fL [facility] [employer] Platelets (Bld) [#/Vol] 301 10*3/uL 140 - 440 10*3/uL [facility] RBC (Bld) [#/Vol] 3.52 10*6/uL Low 3.80 - 5.2 0 10*6/uL [facility] WBC (Bld) [#/Vol] 5.6 10*3/uL 3.6 - 10.7 10*3/uL [facility] CBC WITH AUTO DIFFERENTIALon 07-07-2024 Basophils (Bld) [#/Vol] 0.0 10*3/uL Normal 0.0-0.2 [facility] Comment on above: Performed By: #### L [id number] ####Tax Services Manager: VELMA VALADEZ ([phone])[facility] ([address] Basophils/100 WBC (Bld) 0.4 % Normal 0.0-2.0 [facility] Comment on above: Performed By: #### L [id number] ####Tax Services Manager: VELMA VALADEZ ([phone])[facility])[address] [place] [address] Eosinophils (Bld) [#/Vol] 0.1 10*3/uL Normal 0.0-0.5 [facility] Comment on above: Performed By: #### L [id number] ####Tax Services Manager: VELMA VALADEZ ([phone])[facility])[address] [place] [address] Eosinophils/100 WBC (Bld) 1.3 % Normal 0.0-6.0 [facility] Comment on above: Performed By: #### L [id number] ####Tax Services Manager: VELMA VALADEZ ([phone])[facility])[address] [place] [address] Erythrocyte distribution width (RBC) [Ratio] 17.6 % High 11.5-15.0 [facility] Comment on above: Performed By: #### L [id number] ####Tax Services Manager: VELMA VALADEZ ([phone])[facility])[address] [place] [address] Hematocrit (Bld) [Volume fraction] 29.9 % Low 35.0-47.0 [facility] Comment on above: Performed By: #### L [id number] ####Tax Services Manager: VELMA VALADEZ ([phone])[facility])[address] [place] [address] Hemoglobin (Bld) [Mass/Vol] 9.1 g/dL Low 11.7-16.0 [facility] Comment on above: Performed By: #### L [id number] ####Tax Services Manager: VELMA VALADEZ ([phone])[facility])[address] [place] [address] IMMATURE GRANS % 0.2 % Normal 0.0-2.0 [facility] Comment on above: Performed By: #### L [id number] ####Tax Services Manager: VELMA VALADEZ ([phone])[facility])[address] [place] [address] IMMATURE GRANS ABSOLUTE 0.0 10*3/uL Normal <0.1 [facility] Comment on above: Performed By: #### L [id number] ####Tax Services Manager: VELMA VALADEZ ([phone])[facility])[address] [place] [address] Lymphocytes (Bld) [#/Vol] 1.2 10*3/uL Normal 1.0-4.3 [facility] Comment on above: Performed By: #### L [id number] ####Tax Services Manager: VELMA VALADEZ ([phone])[address] Lymphocytes/100 WBC (Bld) 22.0 % Normal 15.0-45.0 [facility] Comment on above: Performed By: #### L [id number] ####Tax Services Manager: VELMA VALADEZ ([phone])[facility])[address] [place] [address] MCH (RBC) [Entitic mass] 25.9 pg Low 26.0-34.0 [facility] Comment on above: Performed By: #### L [id number] ####Tax Services Manager: VELMA VALADEZ ([phone])[facility])[address] [place] [address] MCHC 30.4 % Low 30.5-36.0 [facility] Comment on above: Performed By: #### L [id number] ####Tax Services Manager: VELMA VALADEZ ([phone])[facility])[address] [place] [address] MCV (RBC) [Entitic vol] 84.9 fL Normal 77.0-99.0 [facility] Comment on above: Performed By: #### L [id number] ####Tax Services Manager: VELMA VALADEZ ([phone])[facility])[address] [place] [address] [place] Monocytes (Bld) [#/Vol] 0.6 10*3/uL Normal 0.0-0.9 [facility] Comment on above: Performed By: #### L [id number] ####Tax Services Manager: VELMA VALADEZ ([phone])[facility] ([facility])[address] [place] [address] Monocytes/100 WBC (Bld) 10.0 % Normal 5.0-13.0 [facility] Comment on above: Performed By: #### L [id number] ####Tax Services Manager: VELMA VALADEZ ([phone])[facility] ([facility])[address] [place] [address] NEUTROPHILS ABSOLUTE 3.7 10*3/uL Normal 1.8-7.5 [facility] Comment on above: Performed By: #### L [id number] ####Tax Services Manager: VELMA VALADEZ ([phone])[facility] ([facility])[address] [place] [address] Neutrophils/100 WBC (Bld) 66.1 % Normal 38.0-82.0 [facility] Comment on above: Performed By: #### L [id number] ####Tax Services Manager: VELMA VALADEZ ([phone])[facility] ([facility])[address] [place] [address] NRBC 0.0 /100 WBCs Normal 0.0-2.0 [facility] Comment on above: Performed By: #### L [id number] ####Tax Services Manager: VELMA VALADEZ ([phone])[facility] ([facility])[address] [place] [address] Platelet mean volume (Bld) [Entitic vol] 9.8 fL Normal 9.0-12.7 [facility] Comment on above: Performed By: #### L [id number] ####Tax Services Manager: VELMA VALADEZ ([phone])[facility] ([facility])[address] [place] [address] Platelets (Bld) [#/Vol] 301 10*3/uL Normal 140-440 [facility] Comment on above: Performed By: #### L [id number] ####Tax Services Manager: VELMA VALADEZ ([phone])[facility])[address] [place] [address] RBC (Bld) [#/Vol] 3.52 10*6/uL Low 3.80-5.20 [facility] Comment on above: Performed By: #### L [id number] ####Tax Services Manager: VELMA VALADEZ ([phone])[facility] ([facility])[address] [place] [address] WBC (Bld) [#/Vol] 5.6 10*3/uL Normal 3.6-10.7 [facility] Comment on above: Performed By: #### L [id number] ####Tax Services Manager: VELMA VALADEZ ([phone])[address] CBC panel Auto (Bld)on 07-07 Erythrocyte distribution width (RBC) [Ratio] 17.5 % High 11.5-15.0 [facility] Comment on above: Order Comment: Speci men Type: BLOOD SPECIMEN Ordering Facility: [facility] Address: [address] [place] [address] Performed By: #### 2 4362-6 #### [facility] CLIA [id number] [address] [place] [address] [place] Hematocrit (Bld) [Volume fraction] 32.7 % Low 36.0-46.0 [facility] Comment on above: Order Comment: Speci men Type: BLOOD SPECIMEN Ordering Facility: [facility] Address: [address] [place] [address] Performed By: #### 2 4362-6 #### [facility] CLIA [id number] [address] [place] [address] [place] Hemoglobin (Bld) [Mass/Vol] 10.2 g/dL Low 11.5-15.5 [facility] Comment on above: Order Comment: Speci men Type: BLOOD SPECIMEN Ordering Facility: [facility] Address: [address] [place] [address] Performed By: #### 2 4362-6 #### [facility] CLIA [id number] [address] [place] [address] [place] MCH (RBC) [Entitic mass] 26.8 pg Normal 26.0-34.0 [facility] Comment on above: Order Comment: Speci men Type: BLOOD SPECIMEN Ordering Facility: [facility] Address: [address] [place] [address] Performed By: #### 2 4362-6 #### [facility] CLIA [id number] [address] [place] [address] [place] MCHC (RBC) [Mass/Vol] 31.2 g/dL Normal 30.5-36.0 [facility] Comment on above: Order Comment: Speci men Type: BLOOD SPECIMEN Ordering Facility: [facility] Address: [address] [place] [address] Performed By: #### 2 4362-6 #### [facility] CLIA [id number] [address] [place] [address] [place] MCV (RBC) [Entitic vol] 86.1 fL Normal 80.0-100.0 [facility] Comment on above: Order Comment: Speci men Type: BLOOD SPECIMEN Ordering Facility: [facility] Address: [address] [place] [address] Performed By: #### 2 4362-6 #### [facility] CLIA [id number] [address] [place] [address] [place] Nucleated RBC (Bld) [#/Vol] 10*3/uL Normal <0.01 [facility] Comment on above: Order Comment: Speci men Type: BLOOD SPECIMEN Ordering Facility: [facility] Address: [address] [place] [address] Performed By: #### 2 4362-6 #### [facility] CLIA [id number] [address] [place], [place] [address] [place] Platelet mean volume (Bld) [Entitic vol] 9.8 fL Normal 9.0-12.7 [facility] Comment on above: Order Comment: Speci men Type: BLOOD SPECIMEN Ordering Facility: [facility] Address: [address] [place] [address] Performed By: #### 2 4362-6 #### [facility] CLIA [id number] [address] [place], [place] [address] [place] Platelets (Bld) [#/Vol] 284 10*3/uL Normal 150-400 [facility] Comment on above: Order Comment: Speci men Type: BLOOD SPECIMEN Ordering Facility: [facility] Address: [address] [place] [address] Performed By: #### 2 4362-6 #### [facility] CLIA [id number] [address] [place] [address] [place] RBC (Bld) [#/Vol] 3.80 10*6/uL Low 3.90-5.20 [facility] Comment on above: Order Comment: Speci men Type: BLOOD SPECIMEN Ordering Facility: [facility] Address: [address] [place] [address] Performed By: #### 2 4362-6 #### [facility] CLIA [id number] [address] [place], [place] [address] [place] WBC (Bld) [#/Vol] 5.72 10*3/uL Normal 3.70-11.00 [facility] Comment on above: Order Comment: Speci men Type: BLOOD SPECIMEN Ordering Facility: [facility] Address: [address] [place] [address] Performed By: #### 2 4362-6 #### [facility] CLIA [id number] [address] [place], [place] [address] [place] ORBITS WO IVCONon 12-21-[address] ORBITS WO IVCON * * *Final Report* * * DATE OF EXAM: Jul 07 2024 8:21PM [facility] 0510 - CT ORBITS WO IVCON / [...] changes. Unchanged appearance of left globe/phthisis bulbi. Veterans Employment Representative: DEVEN Transcribe Date/Time: Jul 07 2024 8:24P Dictated by : ULICES LEBLANC MD This examination was interpreted and the report reviewed and electronically signed by: DE JAIN MD on Jul 07 2024 9:18PM EST [id number] Normal 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 She was subsequently taken by the insole buffer for peripheral iridotomy's, which helped to reduce elevated intraocular pressure down to 10.2 mmHg in the R eye. Furthermore, was evaluated by stroke team at [place] who reviewed her images and believed her headache and severe vision loss was secondary to the acute closure glaucoma and not stroke. Ultimately, it was determined that due to vision now being reduced to only one eye she required retinal specialist at [place] for repair of acute retinal detachment on [...] of breath., Disp: , Rfl: , 07/06/2024 picjhkdnyzm-syhdudmeu-l ilanter (TRELEGY ELLIPTA) 100-62.5-25 mcg inhalation powder, Inhale 1 (more content not included)... Normal [facility] NURSING PROGon 07-07-2024 NURSING PROG HNO ID: [id number] Author: SONNY CASTILLO RN Service: Nursing Author [...] notify nurse if she experiences pain. Normal [facility] NURSING PROG HNO ID: [id number] Author: WINIFRED HILLS RN Service: ? Author Type: Registered Nurse Type: Nursing Progress Note Filed: 07/07/2024 12:15 Note Text: Transfer Note: PATIENT NAME: Mel Castillo Patient Location: [place] [address]/H060-31 Room: [place] [address] Patient transferred into room/unit H60-31 in stable condition. Actions taken: Team notified. Patient belongings with patient. Pt oriented to the floor policy and fall prevention protocol. Call light within reach. Normal [facility] Nursing Noteon 07-07-2024 Nursing Note Report called to [facility]. Normal [facility] Progress Noteon 07-07-2024 Progress Note Nutrition rescreen completed. Chart reviewed. Patient to be monitored and followed by the diet senior health physics technician. Normal [facility] Renal function 2000 panelon 07-07-2024 Albumin [Mass/Vol] 3.7 g/dL Low 3.9-4.9 [facility] Comment on above: Order Comment: Speci men Type: BLOOD SPECIMEN Ordering Facility: [facility] Address: [address] [place] [address] Performed By: #### 2 4362-6 #### [facility] CLIA [id number] [address] [place] [address] [place] Anion gap [Moles/Vol] 12 mmol/L Normal 8-15 [facility] Comment on above: Order Comment: Speci men Type: BLOOD SPECIMEN Ordering Facility: [facility] Address: [address] [place] [address] Performed By: #### 2 4362-6 #### [facility] CLIA [id number] [address] [place] [address] [place] Calcium [Mass/Vol] 9.2 mg/dL Normal 8.5-10.2 [facility] Comment on above: Order Comment: Speci men Type: BLOOD SPECIMEN Ordering Facility: [facility] Address: [address] [place] [address] Performed By: #### 2 4362-6 #### [facility] CLIA [id number] [address] [place] [address] [place] Chloride [Moles/Vol] 107 mmol/L Normal 98-107 [facility] Comment on above: Order Comment: Speci men Type: BLOOD SPECIMEN Ordering Facility: [facility] Address: [address] [place] [address] Performed By: #### 2 4362-6 #### [facility] CLIA [id number] [address] [place] [address] [place] CO2 [Moles/Vol] 20 mmol/L Low 22-30 [facility] Comment on above: Order Comment: Speci men Type: BLOOD SPECIMEN Ordering Facility: [facility] Address: [address] [place] [address] Performed By: #### 2 4362-6 #### [facility] CLIA [id number] [address] [place] [address] [place] Creatinine [Mass/Vol] 0.82 mg/dL Normal 0.58-0.96 [facility] Comment on above: Order Comment: Speci men Type: BLOOD SPECIMEN Ordering Facility: [facility] Address: [address] [place] [address] Performed By: #### 2 4362-6 #### [facility] CLIA [id number] [address] [place] [address] [place] Creatinine and Glomerular filtration rate.predicted panel (S/P/Bld) 71 mL/min/1.73m??? Normal >=60 [facility] Comment on above: Order Comment: Speci men Type: BLOOD SPECIMEN Ordering Facility: [facility] Address: [address] [place] [address] Result Comment: Isa mated Glomerular Filtration Rate [...] GFR. Performed By: #### 2 4362-6 #### [facility] CLIA [id number] [address] [place] [address] [place] Glucose [Mass/Vol] 106 mg/dL High 74-99 [facility] Comment on above: Order Comment: Rhina mason Type: BLOOD SPECIMEN Ordering Facility: [facility] Address: [address] [place] [address] Result Comment: The [place] Diabetes Association (ADA) provides guidance for cutoff [...] Standards of Medical Care in Diabetes 2016, [place] [employer] Association. Diabetes Care. 2016.39(Suppl 1). Performed By: #### 2 4362-6 #### [facility] CLIA [id number] [address] [place] [address] [place] Phosphate [Mass/Vol] 3.0 mg/dL Normal 2.7-4.8 [facility] Comment on above: Order Comment: Rhina mason Type: BLOOD SPECIMEN Ordering Facility: [facility] Address: [address] [place] [address] Performed By: #### 2 4362-6 #### [facility] CLIA [id number] [address] [place] [address] [place] Potassium [Moles/Vol] 4.3 mmol/L Normal 3.7-5.1 [facility] Comment on above: Order Comment: Rhina mason Type: BLOOD SPECIMEN Ordering Facility: [facility] Address: [address] [place] [address] Performed By: #### 2 4362-6 #### [facility] CLIA [id number] [address] [place] [address] [place] Sodium [Moles/Vol] 139 mmol/L Normal 136-144 [facility] Comment on above: Order Comment: Speci men Type: BLOOD SPECIMEN Ordering Facility: [facility] Address: [address] [place] [address] Performed By: #### 2 4362-6 #### [facility] CLIA [id number] [address] [place] [address] [place] Urea nitrogen [Mass/Vol] 16 mg/dL Normal 7-21 [facility] Comment on above: Order Comment: Speci men Type: BLOOD SPECIMEN Ordering Facility: [facility] Address: [address] [place] [address] Performed By: #### 2 4362-6 #### [facility] CLIA [id number] [address] [place] [address] [place] [id number] 07-06-2024 [id number] Normal [facility] BASIC METABOLIC PANELon 06-18 Anion gap [Moles/Vol] 9 mmol/L Normal 3-13 [facility] Comment on above: Performed By: #### L AB15 ####Tax Services Manager: VELMA VALADEZ ([phone])[facility])[address] [place] [address] Calcium [Mass/Vol] 8.9 mg/dL Normal 8.8-10.0 [facility] Comment on above: Performed By: #### L AB15 ####Tax Services Manager: VELMA VALADEZ ([phone])[facility])[address] [place] [address] Chloride [Moles/Vol] 113 mmol/L High 98-107 [facility] Comment on above: Performed By: #### L AB15 ####Tax Services Manager: VELMA VALADEZ ([phone])[facility] [place] [address] CO2 [Moles/Vol] 18 mmol/L Low 23-31 [facility] Comment on above: Performed By: #### L AB15 ####Tax Services Manager: VELMA VALADEZ ([phone])[facility] ([facility])[address] [place] [address] Creatinine [Mass/Vol] 0.86 mg/dL Normal 0.57-1.11 [facility] Comment on above: Performed By: #### L AB15 ####Tax Services Manager: VELMA VALADEZ ([phone])[facility])[address] [place] [address] GLOMERULAR FILTRATION RATE ML/MIN/1.73 SQ M.PREDICTED 66.7 mL/min/1.73m*2 Normal >60.0 [facility] Comment on above: Result Comment: Calc ulation based on the Chronic Kidney Disease Epidemiology Collaboration (CKD-EPI) equation refit without adjustment for race Performed By: #### L AB15 ####Tax Services Manager: VELMA VALADEZ ([phone])[facility])[address] [place] [address] Glucose [Mass/Vol] 74 mg/dL Low 82-115 [facility] Comment on above: Performed By: #### L AB15 ####Tax Services Manager: VELMA VALADEZ ([phone])[facility])[address] [place] [address] Potassium [Moles/Vol] 4.5 mmol/L Normal 3.5-5.1 [facility] Comment on above: Result Comment: [facility] potassium values may be up to 0.5 mmol/L lower than serum values. Performed By: #### L AB15 ####Tax Services Manager: VELMA VALADEZ ([phone])[facility])[address] [place] [address] Sodium [Moles/Vol] 140 mmol/L Normal 136-145 [facility] Comment on above: Performed By: #### L AB15 ####Tax Services Manager: VELMA VALADEZ ([phone])[facility])[address] [place] [address] Urea nitrogen [Mass/Vol] 16 mg/dL Normal 9-23 [facility] Comment on above: Performed By: #### L AB15 ####Tax Services Manager: VELMA VALADEZ ([phone])[facility])[address] [place] [address] Basic metabolic 1998 panelon 07-06-2024 Anion gap [Moles/Vol] 9 mmol/L 3 - 13 mmol/L [facility] Calcium [Mass/Vol] 8.9 mg/dL 8.8 - 10. 0 mg/dL [facility] Chloride [Moles/Vol] 113 mmol/L High 98 - 10 7 mmol/L [facility] CO2 [Moles/Vol] 18 mmol/L Low 23 - 31 mmol/L [facility] Creatinine [Mass/Vol] 0.86 mg/dL 0.57 - 1.11 mg/dL [facility] GFR/1.73 sq M.predicted (S/P/Bld) [Vol rate/Area] 66.7 mL/min - PINF [facility] Comment on above: Calculation based on the Chronic Kidney Disease Epidemiology Collaboration (CKD-EPI) equation refit without adjustment for race Glucose [Mass/Vol] 74 mg/dL Low 82 - 115 mg/dL [facility] Interpretation and review of laboratory results Abnormal [facility] Potassium [Moles/Vol] 4.5 mmol/L 3.5 - 5.1 mmol/L [facility] Comment on above: Plasma potassium chris ues may be up to 0.5 mmol/L lower than serum values. Sodium [Moles/Vol] 140 mmol/L 136 - 145 mmol/L [facility] Urea nitrogen [Mass/Vol] 16 mg/dL 9 - 23 mg/dL [facility] CBC W Auto Differential pane l (Bld)Ordered By: Daija Doran on 07-06-2024 Basophils (Bld) [#/Vol] 0 10*3/uL 0.0 - 0.2 10*3/uL [facility] Basophils/100 WBC (Bld) 0.5 % 0.0 - 2.0 % [facility] Eosinophils (Bld) [#/Vol] 0 10*3/uL 0.0 - 0.5 10*3/uL [facility] Eosinophils/100 WBC (Bld) 0.3 % 0.0 - 6.0 % [facility] Erythrocyte distribution width (RBC) [Ratio] 17.8 % High 11.5 - 15.0 % [facility] Hematocrit (Bld) [Volume fraction] 31.8 % Low 35.0 - 47.0 % [facility] Hemoglobin (Bld) [Mass/Vol] 9.7 g/dL Low 11.7 - 16.0 g/dL [facility] Immature granulocytes (Bld) [#/Vol] 0 10*3/uL NINF - 0.1 10*3/uL [facility] Immature granulocytes/100 WBC (Bld) 0.3 % 0.0 - 2.0 % [facility] Interpretation and review of laboratory results Abnormal [facility] Lymphocytes (Bld) [#/Vol] 1.2 10*3/uL 1.0 - 4.3 10*3/uL [facility] Lymphocytes/100 WBC (Bld) 18.9 % 15.0 - 45.0 % [facility] MCH (RBC) [Entitic mass] 26.4 pg 26.0 - 34.0 pg [facility] MCHC (RBC) [Mass/Vol] 30.5 % 30.5 - 36.0 % [facility] MCV (RBC) [Entitic vol] 86.4 fL 77.0 - 99.0 fL [facility] Monocytes (Bld) [#/Vol] 0.5 10*3/uL 0.0 - 0.9 10*3/uL [facility] Monocytes/100 WBC (Bld) 8.2 % 5.0 - 13.0 % [facility] Neutrophils (Bld) [#/Vol] 4.4 10*3/uL 1.8 - 7.5 10*3/uL [facility] Neutrophils/100 WBC (Bld) 71.8 % 38.0 - 82.0 % [facility] Nucleated RBC/100 WBC (Bld) [Ratio] 0 % [facility] Platelet mean volume (Bld) [Entitic vol] 10.9 fL 9.0 - 12.7 fL [facility] Platelets (Bld) [#/Vol] 278 10*3/uL 140 - 440 10*3/uL [facility] RBC (Bld) [#/Vol] 3.68 10*6/uL Low 3.80 - 5.2 0 10*6/uL [facility] WBC (Bld) [#/Vol] 6.1 10*3/uL 3.6 - 10.7 10*3/uL [facility] CBC WITH AUTO DIFFERENTIALon 07-06-2024 Basophils (Bld) [#/Vol] 0.0 10*3/uL Normal 0.0-0.2 [facility] Comment on above: Performed By: #### L [id number] ####Tax Services Manager: VELMA VALADEZ ([phone])[facility])[address] [place] [address] Basophils/100 WBC (Bld) 0.5 % Normal 0.0-2.0 [facility] Comment on above: Performed By: #### L [id number] ####Tax Services Manager: VELMA VALADEZ ([phone])[facility])[address] [place] [address] Eosinophils (Bld) [#/Vol] 0.0 10*3/uL Normal 0.0-0.5 [facility] Comment on above: Performed By: #### L [id number] ####Tax Services Manager: VELMA VALADEZ ([phone])[facility])[address] [place] [address] Eosinophils/100 WBC (Bld) 0.3 % Normal 0.0-6.0 [facility] Comment on above: Performed By: #### L [id number] ####Tax Services Manager: VELMA VALADEZ ([phone])[facility])[address] [place] [address] Erythrocyte distribution width (RBC) [Ratio] 17.8 % High 11.5-15.0 [facility] Comment on above: Performed By: #### L [id number] ####Tax Services Manager: VELMA VALADEZ ([phone])[facility])[address] [place] [address] Hematocrit (Bld) [Volume fraction] 31.8 % Low 35.0-47.0 [facility] Comment on above: Performed By: #### L [id number] ####Tax Services Manager: VELMA VALADEZ ([phone])[facility])[address] [place] [address] Hemoglobin (Bld) [Mass/Vol] 9.7 g/dL Low 11.7-16.0 [facility] Comment on above: Performed By: #### L [id number] ####Tax Services Manager: VELMA VALADEZ ([phone])[facility])[address] [place] [address] IMMATURE GRANS % 0.3 % Normal 0.0-2.0 [facility] Comment on above: Performed By: #### L [id number] ####Tax Services Manager: VELMA VALADEZ ([phone])[facility])[address] [place] [address] IMMATURE GRANS ABSOLUTE 0.0 10*3/uL Normal <0.1 [facility] Comment on above: Performed By: #### L [id number] ####Tax Services Manager: VELMA VALADEZ ([phone])[facility])[address] [place] [address] Lymphocytes (Bld) [#/Vol] 1.2 10*3/uL Normal 1.0-4.3 [facility] Comment on above: Performed By: #### L [id number] ####Tax Services Manager: VELMA VALADEZ ([phone])[facility])[address] [place] [address] Lymphocytes/100 WBC (Bld) 18.9 % Normal 15.0-45.0 [facility] Comment on above: Performed By: #### L [id number] ####Tax Services Manager: VELMA VALADEZ ([phone])[facility])[address] [place] [address] MCH (RBC) [Entitic mass] 26.4 pg Normal 26.0-34.0 [facility] Comment on above: Performed By: #### L [id number] ####Tax Services Manager: VELMA VALADEZ ([phone])[facility])[address] [place] [address] MCHC 30.5 % Normal 30.5-36.0 [facility] Comment on above: Performed By: #### L [id number] ####Tax Services Manager: VELMA VALADEZ ([phone])[facility])[address] [place] [address] MCV (RBC) [Entitic vol] 86.4 fL Normal 77.0-99.0 [facility] Comment on above: Performed By: #### L [id number] ####Tax Services Manager: VELMA VALADEZ ([phone])[facility])[address] [place] [address] Monocytes (Bld) [#/Vol] 0.5 10*3/uL Normal 0.0-0.9 [facility] Comment on above: Performed By: #### L [id number] ####Tax Services Manager: VELMA VALADEZ ([phone])[facility])[address] [place] [address] Monocytes/100 WBC (Bld) 8.2 % Normal 5.0-13.0 [facility] Comment on above: Performed By: #### L [id number] ####Tax Services Manager: VELMA VALADEZ ([phone])[facility])[address] [place] [address] NEUTROPHILS ABSOLUTE 4.4 10*3/uL Normal 1.8-7.5 [facility] Comment on above: Performed By: #### L [id number] ####Tax Services Manager: VELMA VALADEZ ([phone])[facility])[address] [place] [address] Neutrophils/100 WBC (Bld) 71.8 % Normal 38.0-82.0 [facility] Comment on above: Performed By: #### L [id number] ####Tax Services Manager: VELMA VALADEZ ([phone])[facility])[address] [place] [address] NRBC 0.0 /100 WBCs Normal 0.0-2.0 [facility] Comment on above: Performed By: #### L [id number] ####Tax Services Manager: VELMA VALADEZ ([phone])[facility])[address] [place] [address] Platelet mean volume (Bld) [Entitic vol] 10.9 fL Normal 9.0-12.7 [facility] Comment on above: Performed By: #### L [id number] ####Tax Services Manager: VELMA VALADEZ ([phone])[facility])[address] [place] [address] Platelets (Bld) [#/Vol] 278 10*3/uL Normal 140-440 [facility] Comment on above: Performed By: #### L [id number] ####Tax Services Manager: VELMA VALADEZ ([phone])[facility])[address] [place] [address] RBC (Bld) [#/Vol] 3.68 10*6/uL Low 3.80-5.20 [facility] Comment on above: Performed By: #### L [id number] ####Tax Services Manager: VELMA VALADEZ ([phone])[facility])[address] [place] [address] WBC (Bld) [#/Vol] 6.1 10*3/uL Normal 3.6-10.7 [facility] Comment on above: Performed By: #### L [id number] ####Tax Services Manager: VELMA VALADEZ ([phone])[facility] ([facility])[address] [place] [address] Lauren 07-06-2024 [facility] Telephone [facility] MEL GUADARRAMA ([id number]) 1940 F T Date Time Provider Department 07/06/24 RYAN ELIZONDO During your visit today, we recorded the following information about you: Ryan Elizondo MD 07/06/2024 2:42 PM Signed TELEPHONE ENCOUNTER 07/06/2024 Patient with recent stroke and admitted to [facility] where she was noted to have elevated IOP with retinal detachment of the right eye by consult insole buffer. 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 - gonftwpttuf-enlcfpzbl-l ilanter (TRELEGY ELLIPTA) 100-62.5-25 mcg inhalation powder [...] Status:Closed by RYAN ELIZONDO on 07/06/[address] [facility] Consulton 07-06-2024 Consult [facility] Nursing Noteon 07-06-2024 Nursing Note This RN called Protective Services to try and locate pts lost glasses from 07/05/2024. Glasses that match the description are in lost and found. Will attempt to see if glasses are a match. Normal [facility] Progress Noteon 07-06-2024 Progress Note Normal [facility] Progress Note Normal [facility] CBC (HEMOGRAM)on 07-05-2024 Erythrocyte distribution width (RBC) [Ratio] 17.2 % High 11.5-15.0 [facility] Comment on above: Performed By: #### L [id number] ####Tax Services Manager: VELMA VALADEZ ([phone])[facility])[address] [place] [address] Hematocrit (Bld) [Volume fraction] 32.8 % Low 35.0-47.0 [facility] Comment on above: Performed By: #### L [id number] ####Tax Services Manager: VELMA VALADEZ ([phone])[address] Hemoglobin (Bld) [Mass/Vol] 10.6 g/dL Low 11.7-16.0 [facility] Comment on above: Performed By: #### L [id number] ####Tax Services Manager: VELMA VALADEZ ([phone])[address] MCH (RBC) [Entitic mass] 26.4 pg Normal 26.0-34.0 [facility] Comment on above: Performed By: #### L [id number] ####Tax Services Manager: VELMA VALADEZ ([phone])[address] MCHC 32.3 % Normal 30.5-36.0 [facility] Comment on above: Performed By: #### L [id number] ####Tax Services Manager: VELMA VALADEZ ([phone])[address] MCV (RBC) [Entitic vol] 81.8 fL Normal 77.0-99.0 [facility] Comment on above: Performed By: #### L [id number] ####Tax Services Manager: VELMA VALADEZ ([phone])[facility] ([facility])[address] [place] [address] Platelet mean volume (Bld) [Entitic vol] 9.6 fL Normal 9.0-12.7 [facility] Comment on above: Performed By: #### L [id number] ####Tax Services Manager: VELMA VALADEZ ([phone])[facility] ([facility])[address] [place] [address] Platelets (Bld) [#/Vol] 349 10*3/uL Normal 140-440 [facility] Comment on above: Performed By: #### L [id number] ####Tax Services Manager: VELMA VALADEZ ([phone])[facility] ([facility])[address] [place] [address] RBC (Bld) [#/Vol] 4.01 10*6/uL Normal 3.80-5.20 [facility] Comment on above: Performed By: #### L [id number] ####Tax Services Manager: VELMA VALADEZ ([phone])[facility] ([facility])[address] [place] [address] WBC (Bld) [#/Vol] 5.5 10*3/uL Normal 3.6-10.7 [facility] Comment on above: Performed By: #### L [id number] ####Tax Services Manager: VELMA VALADEZ ([phone])[facility])[address] [place] [address] CBC panel Auto (Bld)on 07-05 Erythrocyte distribution width (RBC) [Ratio] 17.2 % High 11.5 - 15.0 % [facility] Hematocrit (Bld) [Volume fraction] 32.8 % Low 35.0 - 47.0 % [facility] Hemoglobin (Bld) [Mass/Vol] 10.6 g/dL Low 11.7 - 16.0 g/dL [facility] Interpretation and review of laboratory results Abnormal [facility] MCH (RBC) [Entitic mass] 26.4 pg 26.0 - 34.0 pg [facility] MCHC (RBC) [Mass/Vol] 32.3 % 30.5 - 36.0 % [facility] MCV (RBC) [Entitic vol] 81.8 fL 77.0 - 99.0 fL [facility] Platelet mean volume (Bld) [Entitic vol] 9.6 fL 9.0 - 12.7 fL [facility] Platelets (Bld) [#/Vol] 349 10*3/uL 140 - 440 10*3/uL [facility] RBC (Bld) [#/Vol] 4.01 10*6/uL 3.80 - 5.2 0 10*6/uL [facility] WBC (Bld) [#/Vol] 5.5 10*3/uL 3.6 - 10.7 10*3/uL [facility] COMPREHENSIVE METABOLIC PANE Gilberto 07-05-2024 Albumin [Mass/Vol] 3.6 g/dL Normal 3.4-4.8 [facility] Comment on above: Performed By: #### L [id number], [id number] ####Tax Services Manager: VELMA VALADEZ ([phone])[facility])[address] [place] [address] ALP [Catalytic activity/Vol] 94 U/L Normal 40-150 [facility] Comment on above: Performed By: #### L [id number], [id number] ####Tax Services Manager: VELMA VALADEZ ([phone])[facility] ([facility])[address] [place] [address] ALT [Catalytic activity/Vol] 23 U/L Normal <30 [facility] Comment on above: Performed By: #### L [id number], [id number] ####Tax Services Manager: VELMA VALADEZ ([phone])[facility] ([facility])[address] [place] [address] Anion gap [Moles/Vol] 10 mmol/L Normal 3-13 [facility] Comment on above: Performed By: #### L [id number], [id number] ####Tax Services Manager: VELMA VALADEZ ([phone])[facility])[address] [place] [address] AST [Catalytic activity/Vol] 26 U/L Normal <34 [facility] Comment on above: Performed By: #### L [id number], [id number] ####Tax Services Manager: VELMA VALADEZ ([phone])[facility] ([facility])[address] [place] [address] Bilirubin [Mass/Vol] 0.7 mg/dL Normal <1.2 [facility] Comment on above: Performed By: #### L [id number], [id number] ####Tax Services Manager: VELMA VALADEZ ([phone])[facility] ([facility])[address] [place] [address] Calcium [Mass/Vol] 9.2 mg/dL Normal 8.8-10.0 [facility] Comment on above: Performed By: #### L [id number], [id number] ####Tax Services Manager: VELMA VALADEZ ([phone])[facility] ([facility])[address] [place] [address] Chloride [Moles/Vol] 107 mmol/L Normal 98-107 [facility] Comment on above: Performed By: #### L [id number], [id number] ####Tax Services Manager: VELMA VALADEZ ([phone])[facility] ([facility])[address] [place] [address] CO2 [Moles/Vol] 22 mmol/L Low 23-31 [facility] Comment on above: Performed By: #### L [id number], [id number] ####Tax Services Manager: VELMA VALADEZ ([phone])[facility] ([facility])[address] [place] [address] Creatinine [Mass/Vol] 0.82 mg/dL Normal 0.57-1.11 [facility] Comment on above: Performed By: #### L [id number], [id number] ####Tax Services Manager: VELMA VALADEZ ([phone])[facility])[address] [place] [address] GLOMERULAR FILTRATION RATE ML/MIN/1.73 SQ M.PREDICTED 70.6 mL/min/1.73m*2 Normal >60.0 [facility] Comment on above: Result Comment: Calc ulation based on the Chronic Kidney Disease Epidemiology Collaboration (CKD-EPI) equation refit without adjustment for race Performed By: #### L [id number], [id number] ####Tax Services Manager: VELMA VALADEZ ([phone])[facility])[address] [place] [address] Glucose [Mass/Vol] 118 mg/dL High 82-115 [facility] Comment on above: Performed By: #### L [id number], [id number] ####Tax Services Manager: VELMA VALADEZ ([phone])[facility])[address] [place] [address] Potassium [Moles/Vol] 4.3 mmol/L Normal 3.5-5.1 [facility] Comment on above: Result Comment: [facility] potassium values may be up to 0.5 mmol/L lower than serum values. Performed By: #### L [id number], [id number] ####Tax Services Manager: VELMA VALADEZ ([phone])[facility] ([facility])[address] [place] [address] Protein [Mass/Vol] 7.0 g/dL Normal 6.4-8.3 [facility] Comment on above: Performed By: #### L [id number], [id number] ####Tax Services Manager: VELMA VALADEZ ([phone])[facility])[address] [place] [address] Sodium [Moles/Vol] 139 mmol/L Normal 136-145 [facility] Comment on above: Performed By: #### L [id number], [id number] ####Tax Services Manager: VELMA VALADEZ ([phone])[facility])[address] [place] [address] [place] Urea nitrogen [Mass/Vol] 13 mg/dL Normal 9-23 [facility] Comment on above: Performed By: #### L [id number], [id number] ####Tax Services Manager: VELMA VALADEZ ([phone])[facility])[address] [place] [address] CT HEAD NECK ANGIO W AND WO IV CONTRASTon 07-05-2024 CT HEAD NECK ANGIO W AND WO IV CONTRAST Normal [facility] CT HEAD WO IV CONTRASTon CT HEAD WO IV CONTRAST Normal [facility] CT Head WO contraston 2023 Patient Name: MEL CARVER RD : 1940 [facility]#: [id number] Exam Date/Time: 07/05/2024 04:36 Procedure: CT HEAD [...] not included)... [facility]IOLOGY [facility], Cirilo Khalil MD - 07/05/2024 Patient Name: MEL POP : 1940 [facility]#: [id number] Exam Date/Time: 07/05/2024 04:36 Procedure: CT HEAD [...] acute consolidative process (more content not included)... Patterns CT PERFUSIONon 07-05-2024 CT [facility] Head vessels and Neck ve ssels WO and W contrast Cheryl 07-05-2024 Patient Name: MEL CARVER RD : 1940 [facility]#: [id number] Exam Date/Time: 07/05/2024 04:36 Procedure: CT HEAD [...] 07/05/2024 [facility] 1940 [id number] Exam Date/Time: 07/05/2024 04:36 Procedure: CT HEAD [...] no acute conso (more content not included)... [facility] Comprehensive metabolic 1998 panelon 07-05-2024 Albumin [Mass/Vol] 3.6 g/dL 3.4 - 4.8 g/dL [facility] ALP [Catalytic activity/Vol] 94 U/L 40 - 150 U/L [facility] ALT [Catalytic activity/Vol] 23 U/L NINF - 30 U/L [facility] Anion gap [Moles/Vol] 10 mmol/L 3 - 13 mmol/L [facility] AST [Catalytic activity/Vol] 26 U/L NINF - 34 U/L [facility] Bilirubin [Mass/Vol] 0.7 mg/dL NINF - 1.2 mg/dL [facility] Calcium [Mass/Vol] 9.2 mg/dL 8.8 - 10. 0 mg/dL [facility] Chloride [Moles/Vol] 107 mmol/L 98 - 10 7 mmol/L [facility] CO2 [Moles/Vol] 22 mmol/L Low 23 - 31 mmol/L [facility] Creatinine [Mass/Vol] 0.82 mg/dL 0.57 - 1.11 mg/dL [facility] GFR/1.73 sq M.predicted (S/P/Bld) [Vol rate/Area] 70.6 mL/min - PINF [facility] Comment on above: Calculation based on the Chronic Kidney Disease Epidemiology Collaboration (CKD-EPI) equation refit without adjustment for race Glucose [Mass/Vol] 118 mg/dL High 82 - 115 mg/dL [facility] Interpretation and review of laboratory results Abnormal [facility] Potassium [Moles/Vol] 4.3 mmol/L 3.5 - 5.1 mmol/L [facility] Comment on above: Plasma potassium chris ues may be up to 0.5 mmol/L lower than serum values. Protein [Mass/Vol] 7 g/dL 6.4 - 8.3 g/dL [facility] Sodium [Moles/Vol] 139 mmol/L 136 - 145 mmol/L [facility] Urea nitrogen [Mass/Vol] 13 mg/dL 9 - 23 mg/dL [facility] Consulton 07-05-2024 Consult Normal [facility] Consult [facility] Consult [facility] Consult Normal [facility] ECG 12-LEADon 07-05-2024 ECG 12-LEAD IMPRESSION: Atrial fibrillation Electronically Signed On 07-05-2024 12:39:21 EST by Jhonatan Hernandez [facility] ED Nursing Noteon 07-05-[address] Carlson at bedside. Normal [facility] ED Nursing Note Provider notified of patient request for pain meds. Normal [facility] ED Nursing Note Dr. Carlson at bedside [facility] ED Nursing Note Patient is returning back to room 32 at this time with Jose, Medic. Normal [facility] ED Nursing Note Pt emergently going to eye clinic. Pt being transported in wheelchair with trauma jory Hinkle RN and Maritza RN Pt being transported on zoll monitor and acls kit. Normal [facility] ED Nursing Note Ophthalmology at bedside [facility] ED Nursing Note Report to Maritza FRAGA Normal [facility] ED Provider Noteon ED Provider Note Normal [facility] HEMOGLOBIN A1Con 07-05-2024 Glucose [Mass/Vol] 120 mg/dL Normal [facility] Comment on above: Result Comment: BUBBA R COMMENTS:HbA1c values of 5.7-6.4 percent indicate an increased risk for developing diabetes mellitus. HbA1c values greater than or equal to 6.5 percent are diagnostic of diabetes mellitus. For diagnosis of diabetes in individuals without unequivocal hyperglycemia, results should be confirmed by repeat testing. Performed By: #### L [id number] ####Tax Services Manager: VELMA VALADEZ ([phone])[facility] ([facility])[address] [place] [address] HEMOGLOBIN A1C 5.8 %HbA1C High <5.7 [facility] Comment on above: Result Comment: Norm al less than 5.7%Prediabetes 5.7% to 6.4%Diabetes 6.5% or higher--HgbA1C levels may not be accurate in patients who have renal disease, received recent blood transfusions, are anemic, or who have dyshemoglobinemia. Performed By: #### L [id number] ####Tax Services Manager: VELMA VALADEZ ([phone])[facility] [place] [address] HIGH SENSITIVITY TROPONIN, S ERIAL BASELINEon 07-05-2024 TROPONIN HIGH SENSITIVITY BASELINE 14 ng/L Normal <=14 [facility] Comment on above: Performed By: #### L [id number] ####Tax Services Manager: VELMA VALADEZ ([phone])[facility] ([facility])[address] [place] [address] HIGH SENSITIVITY TROPONIN, S ERIAL, SECOND TESTon 07-05-2024 TROPONIN HS DELTA, BASELINE TO SECOND -5 ng/L Normal <=2 [facility] Comment on above: Result [...] further clinical guidance. Performed By: #### L [id number], [id number] ####Tax Services Manager: VELMA VALADEZ ([phone])[facility] ([facility])[address] [place] [address] TROPONIN HS, SERIAL REFLEX, TEST TWO 9 ng/L Normal <=14 [facility] Comment on above: Performed By: #### L [id number], [id number] ####Tax Services Manager: VELMA VALADEZ ([phone])[facility] ([facility])[address] [place] [address] Laboratory - Chemistry and C hemistry - challengeon 07-05-2024 Average glucose Estimated from glycated hemoglobin (Bld) [Mass/Vol] 120 mg/dL [facility] [employer] Anion gap (Bld) [Moles/Vol] 8 mmol/L 3.00 - 13.00 [facility] [employer] Calcium.ionized (Bld) [Moles/Vol] 4.5 mg/dl 4.30 - 5.20 mg/dl [facility] Comment on above: Performed by [employer] CLIA ID:[id number] [place], [place] Device: [id number] Heat Treat Furnace Operator ID: [id number] Chloride [Moles/Vol] 108 mmol/L 98 - 11 4 mmol/L [facility] [employer] CO2 [Moles/Vol] 23 mmol/L 21 - 29 mmol/L [facility] [employer] Creatinine [Mass/Vol] 0.9 mg/dL 0.6 - 1.3 mg/dL [facility] GFR/1.73 sq M.predicted CKD-EPI (S/P/Bld) [Vol rate/Area] 63.2 [facility] Comment on above: KDIGO guidelines pro [...] 104 mg/dL High 70 - 100 mg/dL [facility] Potassium [Moles/Vol] 4.5 mmol/L 3.4 - 5.1 mmol/L [facility] Sodium [Moles/Vol] 139 mmol/L 133 - 145 mmol/L [facility] Urea (Bld) [Mass/Vol] 14 mg/dL 4 - 22 mg/dL [facility] Glucose [Mass/Vol] 104 mg/dL High 70 - 100 mg/dL [facility] Laboratory - Coagulationon 1 09-05-2023 aPTT Coag (PPP) [Time] 30.4 s 20.0 - 30.5 s [facility] INR Coag (PPP) [Relative time] 1 {INR} 0.9 - 1.1 [facility] Comment on above: Recommended Anticoag ulant [...] 11.7 s 9.0 - 1 2.0 s [facility] Laboratory - Hematology and Cell countson 07-05-2024 HbA1c (Bld) [Mass fraction] 5.8 % High NINF [facility] Comment on above: Normal less than [...] Electronically Signed Date/Time: 07/05/2024 12:13 PM EST [facility] Patient Name: MEL CARVER RD : [...] There is artifact within the right globe. [facility] Ming Fry MD - 07/05/2024 Patient [...] Electronically Signed Date/Time: 07/05/2024 12:13 PM EST [facility] Radiology Study observation (narrative) [facility] alth MR Brain WO contrastOrdered By: Ming Fry on 07-05-2024 [facility] Work Phone: No Panel Informationon 07-05 Heart Rate 59 bpm [facility] [employer] P [place] 0 degrees [facility] IA Interval 0 ms [facility] QRS [place] 37 degrees [facility] QRSD Interval 98 ms [facility]alt [facility] QT Interval 423 ms [facility] QTC Interval 418 ms [facility] T Wave [place] 29 degrees [facility] Atrial fibrillation Electronically Signed On 07-05-2024 12:39:21 EST by Jhonatan Hernandez CV Jhonatan Abdi MD - 07/05/2024 IMPRESSION: Atrial fibrillation Electronically Signed On 07-05-2024 12:39:21 EST by Jhonatan Hernandez [facility] Interpretation and review of laboratory results Abnormal [facility] HbA1c values of 5.7- 6.4 percent indicate an increased risk for developing diabetes mellitus. HbA1c values greater than or equal to 6.5 percent are diagnostic of diabetes mellitus. For diagnosis of diabetes in individuals without unequivocal hyperglycemia, results should be confirmed by repeat testing. [facility] Troponin HS Delta, Baseline to Second -5 ng/L NINF - 2 ng/L [facility] Comment on above: This specimen was [...] Second 9 ng/L NINF - 14 ng/L [facility] 1. No acute intracranial hemorrhage [...] Patient Name: MEL CARVER RD : 1940 [facility]#: [id number] Exam Date/Time: 07/05/2024 04:36 Procedure: CT PERFUSION [...] 07/05/2024 Patient Name: MEL POP : 1940 [facility]#: [id number] Exam Date/Time: 07/05/2024 04:36 Procedure: CT PERFUSION [...] process or suspici (more content not included)... [facility] Interpretation and review of laboratory results Normal [facility] Troponin HS, Serial Baseline 14 ng/L NINF - 14 ng/L [facility] Interpretation and review of laboratory results Normal [facility] Interpretation and review of laboratory results Abnormal [facility] Performed by: [facility] [employer] [facility], [address] [place] [address] CLIA ID: [id number] [facility] Radiology Study observation (narrative) [facility] Interpretation and review of laboratory results Abnormal [facility] Performed by: [employer] [facility], [address] [place] [address] CLIA ID: [id number] [facility] No Panel InformationOrdered By: Cirilo Ray on 07-05-2024 [facility] Work Phone: PROTIME AND APTTon aPTT Coag (Bld) [Time] 30.4 s Normal 20.0-30.5 [facility] Comment on above: Performed By: #### L [id number] ####Tax Services Manager: VELMA VALADEZ ([phone])[facility] ([facility])[address] [place] [address] INR Coag (PPP) [Relative time] 1.0 {INR} Normal 0.9-1.1 [facility] Comment on above: Result [...] prevent Myocardial Infarction Performed By: #### L [id number] ####Tax Services Manager: VELMA VLAADEZ ([phone])[facility] ([facility])[address] [place] [address] PT Coag (PPP) [Time] 11.7 s Normal 9.0-12.0 [facility] Comment on above: Performed By: #### L [id number] ####Tax Services Manager: VELMA VALADEZ ([phone])[facility] ([facility])[address] [place] [address] Progress Noteon 07-05-2024 Progress Note Normal [facility] CBC panel Auto (Bld)on 07-02 Erythrocyte distribution width (RBC) [Ratio] 16.9 % High 11.5 - 15.0 % [facility] Hematocrit (Bld) [Volume fraction] 29.6 % Low 36.0 - 46.0 % [facility] Hemoglobin (Bld) [Mass/Vol] 9.3 g/dL Low 11.5 - 15.5 g/dL [facility] Interpretation and review of laboratory results Abnormal [facility] MCH (RBC) [Entitic mass] 26.7 pg 26.0 - 34.0 pg [facility] MCHC (RBC) [Mass/Vol] 31.4 g/dL 30.5 - 36.0 g/dL [facility] MCV (RBC) [Entitic vol] 85.1 fL 80.0 - 100.0 fL [facility] Nucleated RBC (Bld) [#/Vol] NINF [facility] Platelet mean volume (Bld) [Entitic vol] 10.2 fL 9.0 - 12.7 fL [facility] Platelets (Bld) [#/Vol] 324 10*3/uL [facility] RBC (Bld) [#/Vol] 3.48 10*6/uL Low 3.90 - 5.2 0 m/uL [facility] WBC (Bld) [#/Vol] 5.12 10*3/uL [facility] Erythrocyte distribution width (RBC) [Ratio] 16.9 % High 11.5-15.0 [facility] Comment on above: Order Comment: Speci men Type: BLOOD SPECIMENOrdering Facility: [facility] Address: [address] [place] [address] Performed By: #### 5 8410-2 ####[facility] LABORATORYCLIA [id number] [place] [address] [place] Hematocrit (Bld) [Volume fraction] 29.6 % Low 36.0-46.0 [facility] Comment on above: Order Comment: Speci men Type: BLOOD SPECIMENOrdering Facility: [facility] Address: [address] [place] [address] Performed By: #### 5 8410-2 ####[facility] LABORATORYCLIA [id number] [place] [address] [place] Hemoglobin (Bld) [Mass/Vol] 9.3 g/dL Low 11.5-15.5 [facility] Comment on above: Order Comment: Speci men Type: BLOOD SPECIMENOrdering Facility: [facility] Address: [address] [place] [address] Performed By: #### 5 8410-2 ####[facility]ATORY[facility]IA [id number] [place] [address] [place] MCH (RBC) [Entitic mass] 26.7 pg Normal 26.0-34.0 [facility] Comment on above: Order Comment: Speci men Type: BLOOD SPECIMENOrdering Facility: [facility] Address: [address] [place] [address] Performed By: #### 5 8410-2 ####[facility]ORATORYCLIA [id number] [address] [place] MCHC (RBC) [Mass/Vol] 31.4 g/dL Normal 30.5-36.0 [facility] Comment on above: Order Comment: Speci men Type: BLOOD SPECIMENOrdering Facility: [facility] Address: [address] [place] [address] Performed By: #### 5 8410-2 ####[facility] LABORATORYCLIA [id number] [place] [address] [place] MCV (RBC) [Entitic vol] 85.1 fL Normal 80.0-100.0 [facility] Comment on above: Order Comment: Speci men Type: BLOOD SPECIMENOrdering Facility: [facility] Address: [address] [place] [address] Performed By: #### 5 8410-2 ####[facility] LABORATORYCLIA [id number] [place] [address] [place] Nucleated RBC (Bld) [#/Vol] 10*3/uL Normal <0.01 [facility] Comment on above: Order Comment: Speci men Type: BLOOD SPECIMENOrdering Facility: [facility] Address: [address] [place] [address] Performed By: #### 5 8410-2 ####[facility]ORATORYCLIA [id number] [address] [place] Platelet mean volume (Bld) [Entitic vol] 10.2 fL Normal 9.0-12.7 [facility] Comment on above: Order Comment: Speci men Type: BLOOD SPECIMENOrdering Facility: [facility] Address: [address] [place] [address] Performed By: #### 5 8410-2 ####[facility] LABORATORYCLIA [id number] [place] [address] [place] Platelets (Bld) [#/Vol] 324 10*3/uL Normal 150-400 [facility] Comment on above: Order Comment: Speci men Type: BLOOD SPECIMENOrdering Facility: [facility] Address: [address] [place] [address] Performed By: #### 5 8410-2 ####MOR[facility] LABORATORYCLIA [id number] [place] [address] [place] RBC (Bld) [#/Vol] 3.48 10*6/uL Low 3.90-5.20 [facility] Comment on above: Order Comment: Speci men Type: BLOOD SPECIMENOrdering Facility: [facility] Address: [address] [place] [address] Performed By: #### 5 8410-2 ####[facility] LABORATORYCLIA [id number] [address] WBC (Bld) [#/Vol] 5.12 10*3/uL Normal 3.70-11.00 [facility] Comment on above: Order Comment: Speci men Type: BLOOD SPECIMENOrdering Facility: [facility] Address: [address] [place] [address] Performed By: #### 5 8410-2 ####[facility] LABORATORYCLIA [id number] [address] CBC panel Auto (Bld)on 06-28 Erythrocyte distribution width (RBC) [Ratio] 16.6 % High 11.5 - 15.0 % [facility] Hematocrit (Bld) [Volume fraction] 28.8 % Low 36.0 - 46.0 % [facility] Hemoglobin (Bld) [Mass/Vol] 9.0 g/dL Low 11.5 - 15.5 g/dL [facility] Interpretation and review of laboratory results Abnormal [facility] MCH (RBC) [Entitic mass] 26.8 pg 26.0 - 34.0 pg [facility] MCHC (RBC) [Mass/Vol] 31.3 g/dL 30.5 - 36.0 g/dL [facility] MCV (RBC) [Entitic vol] 85.7 fL 80.0 - 100.0 fL [facility] Nucleated RBC (Bld) [#/Vol] NINF [facility] Platelet mean volume (Bld) [Entitic vol] 10.5 fL 9.0 - 12.7 fL [facility] Platelets (Bld) [#/Vol] 316 10*3/uL [facility] RBC (Bld) [#/Vol] 3.36 10*6/uL Low 3.90 - 5.2 0 m/uL [facility] WBC (Bld) [#/Vol] 5.27 10*3/uL [facility] Erythrocyte distribution width (RBC) [Ratio] 16.6 % High 11.5-15.0 [facility] Comment on above: Order Comment: Speci men Type: BLOOD SPECIMEN [facility]ing Facility[facility] Address: [address] [place] [address] Performed By: #### 2 276-4 #### [facility] CLIA [id number] [address] [place] [address] [place] Hematocrit (Bld) [Volume fraction] 28.8 % Low 36.0-46.0 [facility] Comment on above: Order Comment: Speci men Type: BLOOD SPECIMEN Ordering Facility: [facility] Address: [address] [place] [address] Performed By: #### 2 276-4 #### [facility] CLIA [id number] [address] [place] [address] [place] Hemoglobin (Bld) [Mass/Vol] 9.0 g/dL Low 11.5-15.5 [facility] Comment on above: Order Comment: Speci men Type: BLOOD SPECIMEN Ordering Facility: [facility] Address: [address] [place] [address] Performed By: #### 2 276-4 #### [facility] CLIA [id number] [address] [place] [address] [place] MCH (RBC) [Entitic mass] 26.8 pg Normal 26.0-34.0 [facility] Comment on above: Order Comment: Speci men Type: BLOOD SPECIMEN Ordering Facility: [facility] Address: [address] [place] [address] Performed By: #### 2 276-4 #### [facility] CLIA [id number] [address] [place] [address] [place] MCHC (RBC) [Mass/Vol] 31.3 g/dL Normal 30.5-36.0 [facility] Comment on above: Order Comment: Speci men Type: BLOOD SPECIMEN Ordering Facility: [facility] Address: [address] [place] [address] Performed By: #### 2 276-4 #### [facility] CLIA [id number] [address] [place] [address] [place] MCV (RBC) [Entitic vol] 85.7 fL Normal 80.0-100.0 [facility] Comment on above: Order Comment: Speci men Type: BLOOD SPECIMEN [facility]ing Facility: [facility] Address: [address] [place] [address] Performed By: #### 2 276-4 #### [facility] CLIA [id number] [address] [place] [address] [place] Nucleated RBC (Bld) [#/Vol] 10*3/uL Normal <0.01 [facility] Comment on above: Order Comment: Speci men Type: BLOOD SPECIMEN [facility]ing Facility: [facility] Address: [address] [place] [address] Performed By: #### 2 276-4 #### [facility] CLIA [id number] [address] [place] [address] [place] Platelet mean volume (Bld) [Entitic vol] 10.5 fL Normal 9.0-12.7 [facility] Comment on above: Order Comment: Speci men Type: BLOOD SPECIMEN Ordering Facility: [facility] Address: [address] [place] [address] Performed By: #### 2 276-4 #### [facility] CLIA [id number] [address] [place] [address] [place] Platelets (Bld) [#/Vol] 316 10*3/uL Normal 150-400 [facility] Comment on above: Order Comment: Speci men Type: BLOOD SPECIMEN [facility]ing Facility: [facility] Address: [address] [place] [address] Performed By: #### 2 276-4 #### [facility] CLIA [id number] [address] [place] [address] [place] RBC (Bld) [#/Vol] 3.36 10*6/uL Low 3.90-5.20 [facility] Comment on above: Order Comment: Speci men Type: BLOOD SPECIMEN Ordering Facility: [facility] Address: [address] [place] [address] Performed By: #### 2 276-4 #### [facility] CLIA [id number] [address] [place] [address] [place] WBC (Bld) [#/Vol] 5.27 10*3/uL Normal 3.70-11.00 [facility] Comment on above: Order Comment: Speci men Type: BLOOD SPECIMEN Ordering Facility: [facility] Address: [address] [place] [address] Performed By: #### 2 276-4 #### [facility] CLIA [id number] [address] [place] [address] [place] FERRITINon 06-27-2024 Ferritin [Mass/Vol] 67.5 ng/mL 14.7 - 205.1 ng/mL [facility] Ferritin SerPl-mCncon 2023 Ferritin [Mass/Vol] 67.5 ng/mL Normal 14.7-205.1 [facility] Comment on above: Order Comment: Speci men Type: BLOOD SPECIMEN Ordering Facility: [facility] Address: [address] [place] [address] Performed By: #### 2 276-4 #### [facility] CLIA [id number] [address] [place] [address] [place] Ferritin [Mass/Vol]on 2023 Interpretation and review of laboratory results Normal [facility] Iron and Iron binding capaci ty panelon 06-27-2024 Interpretation and review of laboratory results Abnormal [facility] Iron [Mass/Vol] 30 ug/dL Low 41 - 186 ug/dL [facility] Iron binding capacity [Mass/Vol] 298 ug/dL 232 - 386 ug/dL [facility] Iron/TIBC [Molar ratio] 10.1 % Low 15.0 - 57.0 % [facility] Iron [Mass/Vol] 30 ug/dL Low 41-186 [facility] Comment on above: Order Comment: Speci men Type: BLOOD SPECIMEN [facility]ing Facility: [facility] Address: [address] [place] [address] Performed By: #### 2 276-4 #### [facility] CLIA [id number] [address] [place] [address] STATES [facility] Iron binding capacity [Mass/Vol] 298 ug/dL Normal 232-386 [facility] Comment on above: Order Comment: Speci men Type: BLOOD SPECIMEN Ordering Facility: [facility] Address: [address] [place] [address] Performed By: #### 2 276-4 #### [facility] CLIA [id number] [address] [place] [address] [place] Iron/TIBC [Molar ratio] 10.1 % Low 15.0-57.0 [facility] Comment on above: Order Comment: Speci men Type: BLOOD SPECIMEN [facility]ing Facility: [facility] Address: [address] [place] [address] Performed By: #### 2 276-4 #### [facility] CLIA [id number] [address] [place] [address] [place] CBC panel Auto (Bld)on 06-25 Erythrocyte distribution width (RBC) [Ratio] 15.9 % High 11.5 - 15.0 % [facility] Hematocrit (Bld) [Volume fraction] 28.7 % Low 36.0 - 46.0 % [facility] Hemoglobin (Bld) [Mass/Vol] 9.0 g/dL Low 11.5 - 15.5 g/dL [facility] Interpretation and review of laboratory results Abnormal [facility] MCH (RBC) [Entitic mass] 26.7 pg 26.0 - 34.0 pg [facility] MCHC (RBC) [Mass/Vol] 31.4 g/dL 30.5 - 36.0 g/dL [facility] MCV (RBC) [Entitic vol] 85.2 fL 80.0 - 100.0 fL [facility] Nucleated RBC (Bld) [#/Vol] NINF [facility] Platelet mean volume (Bld) [Entitic vol] 10.8 fL 9.0 - 12.7 fL [facility] Platelets (Bld) [#/Vol] 315 10*3/uL [facility] RBC (Bld) [#/Vol] 3.37 10*6/uL Low 3.90 - 5.2 0 m/uL [facility] WBC (Bld) [#/Vol] 4.96 10*3/uL [facility] Erythrocyte distribution width (RBC) [Ratio] 15.9 % High 11.5-15.0 [facility] Comment on above: Order Comment: Speci men Type: BLOOD SPECIMEN Ordering Facility: [facility] Address: [address] [place] [address] Performed By: #### 2 4362-6 #### [facility] CLIA [id number] [address] [place] [address] [place] Hematocrit (Bld) [Volume fraction] 28.7 % Low 36.0-46.0 [facility] Comment on above: Order Comment: Speci men Type: BLOOD SPECIMEN Ordering Facility: [facility] Address: [address] [place] [address] Performed By: #### 2 4362-6 #### [facility] CLIA [id number] [address] [place] [address] [place] Hemoglobin (Bld) [Mass/Vol] 9.0 g/dL Low 11.5-15.5 [facility] Comment on above: Order Comment: Speci men Type: BLOOD SPECIMEN Ordering Facility: [facility] Address: [address] [place] [address] Performed By: #### 2 4362-6 #### [facility] CLIA [id number] [address] [place] [address] [place] MCH (RBC) [Entitic mass] 26.7 pg Normal 26.0-34.0 [facility] Comment on above: Order Comment: Speci men Type: BLOOD SPECIMEN Ordering Facility: [facility] Address: [address] [place] [address] Performed By: #### 2 4362-6 #### [facility] CLIA [id number] [address] [place] [address] [place] MCHC (RBC) [Mass/Vol] 31.4 g/dL Normal 30.5-36.0 [facility] Comment on above: Order Comment: Speci men Type: BLOOD SPECIMEN Ordering Facility: [facility] Address: [address] [place] [address] Performed By: #### 2 4362-6 #### [facility] CLIA [id number] [address] [place] [address] [place] MCV (RBC) [Entitic vol] 85.2 fL Normal 80.0-100.0 [facility] Comment on above: Order Comment: Speci men Type: BLOOD SPECIMEN Ordering Facility: [facility] Address: [address] [place] [address] Performed By: #### 2 4362-6 #### [facility] CLIA [id number] [address] [place] [address] [place] Nucleated RBC (Bld) [#/Vol] 10*3/uL Normal <0.01 [facility] Comment on above: Order Comment: Speci men Type: BLOOD SPECIMEN Ordering Facility: [facility] Address: [address] [place] [address] Performed By: #### 2 4362-6 #### [facility] CLIA [id number] [address] [place] [address] [place] Platelet mean volume (Bld) [Entitic vol] 10.8 fL Normal 9.0-12.7 [facility] Comment on above: Order Comment: Speci men Type: BLOOD SPECIMEN Ordering Facility: [facility] Address: [address] [place] [address] Performed By: #### 2 4362-6 #### [facility] CLIA [id number] [address] [place] [address] [place] Platelets (Bld) [#/Vol] 315 10*3/uL Normal 150-400 [facility] Comment on above: Order Comment: Speci men Type: BLOOD SPECIMEN Ordering Facility: [facility] Address: [address] [place] [address] Performed By: #### 2 4362-6 #### [facility] CLIA [id number] [address] [place] [address] [place] RBC (Bld) [#/Vol] 3.37 10*6/uL Low 3.90-5.20 [facility] Comment on above: Order Comment: Speci men Type: BLOOD SPECIMEN Ordering Facility: [facility] Address: [address] [place] [address] Performed By: #### 2 4362-6 #### [facility] CLIA [id number] [address] [place] [address] [place] WBC (Bld) [#/Vol] 4.96 10*3/uL Normal 3.70-11.00 [facility] Comment on above: Order Comment: Speci men Type: BLOOD SPECIMEN Ordering Facility: [facility] Address: [address] [place] [address] Performed By: #### 2 4362-6 #### [facility] CLIA [id number] [address] [place] [address] [place] Basic metabolic 2000 panelon 06-21-2024 Anion gap [Moles/Vol] 12 mmol/L 8 - 15 mmol/L [facility] Calcium [Mass/Vol] 9.3 mg/dL 8.5 - 10. 2 mg/dL [facility] Chloride [Moles/Vol] 108 mmol/L High 98 - 10 7 mmol/L [facility] CO2 [Moles/Vol] 21 mmol/L Low 22 - 30 mmol/L [facility] Creatinine [Mass/Vol] 0.92 mg/dL 0.58 - 0.96 mg/dL [facility] GFR/1.73 sq M.predicted among non-blacks MDRD (S/P/Bld) [Vol rate/Area] 62 mL/min/{1.73_m2} - PINF [facility] Comment on above: Estimated Glomerular Filtration [...] 101 mg/dL High 74 - 99 mg/dL [facility] Comment on above: The [place] Diab[employer] Association (ADA) provides guidance for [...] Standards of Medical Care in Diabetes 2016, [place] [employer]. Diabetes Care. 2016.39(Suppl 1). Interpretation and review of laboratory results Abnormal [facility] Potassium [Moles/Vol] 4.6 mmol/L 3.7 - 5.1 mmol/L [facility] Sodium [Moles/Vol] 141 mmol/L 136 - 144 mmol/L [facility] Urea nitrogen [Mass/Vol] 22 mg/dL High 7 - 21 mg/dL [facility] Anion gap [Moles/Vol] 12 mmol/L Normal 8-15 [facility] Comment on above: Order Comment: Rhina mason Type: BLOOD SPECIMEN Ordering Facility: [facility] Address: [address] [place] [address] Performed By: #### 2 4362-6 #### [facility] CLIA [id number] [address] [place] [address] [place] Calcium [Mass/Vol] 9.3 mg/dL Normal 8.5-10.2 [facility] Comment on above: Order Comment: Rhina mason Type: BLOOD SPECIMEN Ordering Facility: [facility] Address: [address] [place] [address] Performed By: #### 2 4362-6 #### [facility] CLIA [id number] [address] [place] [address] [place] Chloride [Moles/Vol] 108 mmol/L High 98-107 [facility] Comment on above: Order Comment: Speci men Type: BLOOD SPECIMEN Ordering Facility: [facility] Address: [address] [place] [address] Performed By: #### 2 4362-6 #### [facility] CLIA [id number] [address] [place] [address] [place] CO2 [Moles/Vol] 21 mmol/L Low 22-30 [facility] Comment on above: Order Comment: Speci men Type: BLOOD SPECIMEN Ordering Facility: [facility] Address: [address] [place] [address] Performed By: #### 2 4362-6 #### [facility] CLIA [id number] [address] [place] [address] [place] Creatinine [Mass/Vol] 0.92 mg/dL Normal 0.58-0.96 [facility] Comment on above: Order Comment: Speci men Type: BLOOD SPECIMEN Ordering Facility: [facility] Address: [address] [place] [address] Performed By: #### 2 4362-6 #### [facility] CLIA [id number] [address] [place] [address] [place] Creatinine and Glomerular filtration rate.predicted panel (S/P/Bld) 62 mL/min/1.73m??? Normal >=60 [facility] Comment on above: Order Comment: Speci men Type: BLOOD SPECIMEN Ordering Facility: [facility] Address: [address] [place] [address] Result Comment: Isa mated Glomerular Filtration Rate [...] GFR. Performed By: #### 2 4362-6 #### [facility] CLIA [id number] [address] [place] [address] [place] Glucose [Mass/Vol] 101 mg/dL High 74-99 [facility] Comment on above: Order Comment: Rhina mason Type: BLOOD SPECIMEN Ordering Facility: [facility] Address: [address] [place] [address] Result Comment: The [place] Diabetes Association (ADA) provides guidance for cutoff [...] Standards of Medical Care in Diabetes 2016, [place] [employer]. Diabetes Care. 2016.39(Suppl 1). Performed By: #### 2 4362-6 #### [facility] CLIA [id number] [address] [place] [address] [place] Potassium [Moles/Vol] 4.6 mmol/L Normal 3.7-5.1 [facility] Comment on above: Order Comment: Rhina mason Type: BLOOD SPECIMEN Ordering Facility: [facility] Address: [address] [place] [address] Performed By: #### 2 4362-6 #### [facility] CLIA [id number] [address] [place] [address] [place] Sodium [Moles/Vol] 141 mmol/L Normal 136-144 [facility] Comment on above: Order Comment: Speci men Type: BLOOD SPECIMEN Ordering Facility: [facility] Address: [address] [place] [address] Performed By: #### 2 4362-6 #### [facility] CLIA [id number] [address] [place] [address] [place] Urea nitrogen [Mass/Vol] 22 mg/dL High 7-21 [facility] Comment on above: Order Comment: Speci men Type: BLOOD SPECIMEN Ordering Facility: [facility] Address: [address] [place] [address] Performed By: #### 2 4362-6 #### [facility] CLIA [id number] [address] [place] [address] [place] CBC panel Auto (Bld)on 06-21 Erythrocyte distribution width (RBC) [Ratio] 15.8 % High 11.5 - 15.0 % [facility] Hematocrit (Bld) [Volume fraction] 34.2 % Low 36.0 - 46.0 % [facility] Hemoglobin (Bld) [Mass/Vol] 10.6 g/dL Low 11.5 - 15.5 g/dL [facility] Interpretation and review of laboratory results Abnormal [facility] MCH (RBC) [Entitic mass] 26.4 pg 26.0 - 34.0 pg [facility] MCHC (RBC) [Mass/Vol] 31.0 g/dL 30.5 - 36.0 g/dL [facility] MCV (RBC) [Entitic vol] 85.3 fL 80.0 - 100.0 fL [facility] Nucleated RBC (Bld) [#/Vol] NINF [facility] Platelet mean volume (Bld) [Entitic vol] 10.7 fL 9.0 - 12.7 fL [facility] Platelets (Bld) [#/Vol] 300 10*3/uL [facility] RBC (Bld) [#/Vol] 4.01 10*6/uL 3.90 - 5.2 0 m/uL [facility] WBC (Bld) [#/Vol] 5.52 10*3/uL [facility] Erythrocyte distribution width (RBC) [Ratio] 15.8 % High 11.5-15.0 [facility] Comment on above: Order Comment: Speci men Type: BLOOD SPECIMEN Ordering Facility: [facility] Address: [address] [place] [address] Performed By: #### 2 4362-6 #### [facility] CLIA [id number] [address] [place] [address] [place] Hematocrit (Bld) [Volume fraction] 34.2 % Low 36.0-46.0 [facility] Comment on above: Order Comment: Speci men Type: BLOOD SPECIMEN Ordering Facility: [facility] Address: [address] [place] [address] Performed By: #### 2 4362-6 #### [facility] CLIA [id number] [address] [place] [address] [place] Hemoglobin (Bld) [Mass/Vol] 10.6 g/dL Low 11.5-15.5 [facility] Comment on above: Order Comment: Speci men Type: BLOOD SPECIMEN Ordering Facility: [facility] Address: [address] [place] [address] Performed By: #### 2 4362-6 #### [facility] CLIA [id number] [address] [place] [address] [place] MCH (RBC) [Entitic mass] 26.4 pg Normal 26.0-34.0 [facility] Comment on above: Order Comment: Speci men Type: BLOOD SPECIMEN Ordering Facility: [facility] Address: [address] [place] [address] Performed By: #### 2 4362-6 #### [facility] CLIA [id number] [address] [place] [address] [place] MCHC (RBC) [Mass/Vol] 31.0 g/dL Normal 30.5-36.0 [facility] Comment on above: Order Comment: Speci men Type: BLOOD SPECIMEN Ordering Facility: [facility] Address: [address] [place] [address] Performed By: #### 2 4362-6 #### [facility] CLIA [id number] [address] [place] [address] [place] MCV (RBC) [Entitic vol] 85.3 fL Normal 80.0-100.0 [facility] Comment on above: Order Comment: Speci men Type: BLOOD SPECIMEN Ordering Facility: [facility] Address: [address] [place] [address] Performed By: #### 2 4362-6 #### [facility] CLIA [id number] [address] [place] [address] [place] Nucleated RBC (Bld) [#/Vol] 10*3/uL Normal <0.01 [facility] Comment on above: Order Comment: Speci men Type: BLOOD SPECIMEN Ordering Facility: [facility] Address: [address] [place] [address] Performed By: #### 2 4362-6 #### [facility] CLIA [id number] [address] [place] [address] [place] Platelet mean volume (Bld) [Entitic vol] 10.7 fL Normal 9.0-12.7 [facility] Comment on above: Order Comment: Speci men Type: BLOOD SPECIMEN Ordering Facility: [facility] Address: [address] [place] [address] Performed By: #### 2 4362-6 #### [facility] CLIA [id number] [address] [place], [place] [address] [place] Platelets (Bld) [#/Vol] 300 10*3/uL Normal 150-400 [facility] Comment on above: Order Comment: Speci men Type: BLOOD SPECIMEN Ordering Facility: [facility] Address: [address] [place] [address] Performed By: #### 2 4362-6 #### [facility] CLIA [id number] [address] [place] [address] [place] RBC (Bld) [#/Vol] 4.01 10*6/uL Normal 3.90-5.20 [facility] Comment on above: Order Comment: Speci men Type: BLOOD SPECIMEN Ordering Facility: [facility] Address: [address] [place] [address] Performed By: #### 2 4362-6 #### [facility] CLIA [id number] [address] [place] [address] [place] WBC (Bld) [#/Vol] 5.52 10*3/uL Normal 3.70-11.00 [facility] Comment on above: Order Comment: Speci men Type: BLOOD SPECIMEN Ordering Facility: [facility] Address: [address] [place] [address] Performed By: #### 2 4362-6 #### [facility] CLIA [id number] [address] [place] [address] [place] Basic metabolic 2000 panelon 06-19-2024 Anion gap [Moles/Vol] 10 mmol/L Normal 8-15 [facility] Comment on above: Order Comment: Speci men Type: BLOOD SPECIMEN Ordering Facility: [facility] Address: [address] [place] [address] Performed By: #### 2 4321-2, 02556-8, #### [facility] CLIA [id number] 1 [place] [address] [place] Calcium [Mass/Vol] 8.9 mg/dL Normal 8.5-10.2 [facility] Comment on above: Order Comment: Speci men Type: BLOOD SPECIMEN Ordering Facility: [facility] Address: [address] [place] [address] Performed By: #### 2 4321-2, 81749-1, #### [facility] CLIA [id number] 1 [place] [address] [place] Chloride [Moles/Vol] 109 mmol/L High 98-107 [facility] Comment on above: Order Comment: Speci men Type: BLOOD SPECIMEN Ordering Facility: [facility] Address: [address] [place] [address] Performed By: #### 2 4321-2, 85335-9, #### [facility] CLIA [id number] 1 [place] [address] [place] CO2 [Moles/Vol] 21 mmol/L Low 22-30 [facility] Comment on above: Order Comment: Speci men Type: BLOOD SPECIMEN Ordering Facility: [facility] Address: [address] [place] [address] Performed By: #### 2 4321-2, 52776-1, #### [facility] CLIA [id number] [address] [place] Creatinine [Mass/Vol] 1.04 mg/dL High 0.58-0.96 [facility] Comment on above: Order Comment: Speci men Type: BLOOD SPECIMEN Ordering Facility: [facility] Address: [address] [place] [address] Performed By: #### 2 4321-2, 26978-9, #### [facility] CLIA [id number] [address] OF [facility] Creatinine and Glomerular filtration rate.predicted panel (S/P/Bld) 53 mL/min/1.73m??? Low >=60 [facility] Comment on above: Order Comment: Speci men Type: BLOOD SPECIMEN Ordering Facility: [facility] Address: [address] [place] [address] Result Comment: Isa mated Glomerular Filtration Rate [...] actual GFR. Performed By: #### 2 4321-2, 33942-8, #### [facility] CLIA [id number] 1 [place] [address] [place] Glucose [Mass/Vol] 103 mg/dL High 74-99 [facility] Comment on above: Order Comment: Rhina mason Type: BLOOD SPECIMEN Ordering Facility: [facility] Address: [address] [place] [address] Result Comment: The [place] Diabetes [employer] (ADA) provides guidance for cutoff [...] Standards of Medical Care in Diabetes 2016, [place] [employer]. Diabetes Care. 2016.39(Suppl 1). Performed By: #### 2 4321-2, 53136-9, #### [facility] CLIA [id number] 1 [place] [address] [place] Potassium [Moles/Vol] 4.8 mmol/L Normal 3.7-5.1 [facility] Comment on above: Order Comment: Rhina mason Type: BLOOD SPECIMEN Ordering Facility: [facility] Address: [address] [place] [address] Performed By: #### 2 4321-2, 62159-5, #### [facility] CLIA [id number] 1 [place] [address] [place] Sodium [Moles/Vol] 140 mmol/L Normal 136-144 [facility] Comment on above: Order Comment: Rhina mason Type: BLOOD SPECIMEN Ordering Facility: [facility] Address: [address] [place], [place] [address] Performed By: #### 2 4321-2, 60564-3, #### [facility] CLIA [id number] 1 [place] [address] [place] Urea nitrogen [Mass/Vol] 25 mg/dL High 7-21 [facility] Comment on above: Order Comment: Speci men Type: BLOOD SPECIMEN Ordering Facility: [facility] Address: [address] [place] [address] Performed By: #### 2 4321-2, 31522-3, #### [facility] CLIA [id number] 1 [place] [address] [place] CBC panel Auto (Bld)on 06-19 Erythrocyte distribution width (RBC) [Ratio] 15.9 % High 11.5-15.0 [facility] Comment on above: Order Comment: Speci men Type: BLOOD SPECIMEN Ordering Facility: [facility] Address: [address] [place] [address] Performed By: #### 2 4321-2, 12484-5, #### [facility] CLIA [id number] [address] [place] Hematocrit (Bld) [Volume fraction] 30.6 % Low 36.0-46.0 [facility] Comment on above: Order Comment: Speci men Type: BLOOD SPECIMEN Ordering Facility: [facility] Address: [address] [place] [address] Performed By: #### 2 4321-2, 87728-0, #### [facility] CLIA [id number] [address] [place] Hemoglobin (Bld) [Mass/Vol] 9.5 g/dL Low 11.5-15.5 [facility] Comment on above: Order Comment: Speci men Type: BLOOD SPECIMEN Ordering Facility: [facility] Address: [address] [place] [address] Performed By: #### 2 4321-2, 67523-6, #### [facility] CLIA [id number] [address] [place] MCH (RBC) [Entitic mass] 26.5 pg Normal 26.0-34.0 [facility] Comment on above: Order Comment: Speci men Type: BLOOD SPECIMEN Ordering Facility: [facility] Address: [address] [place] [address] Performed By: #### 2 4321-2, 98737-1, #### [facility] CLIA [id number] [address] MCHC (RBC) [Mass/Vol] 31.0 g/dL Normal 30.5-36.0 [facility] Comment on above: Order Comment: Speci men Type: BLOOD SPECIMEN Ordering Facility: [facility] Address: [address] [place] [address] Performed By: #### 2 4321-2, 59317-1, #### [facility] CLIA [id number] [address] MCV (RBC) [Entitic vol] 85.5 fL Normal 80.0-100.0 [facility] Comment on above: Order Comment: Speci men Type: BLOOD SPECIMEN Ordering Facility: [facility] Address: [address] [place] [address] Performed By: #### 2 4321-2, 62546-1, #### [facility] CLIA [id number] [address] Nucleated RBC (Bld) [#/Vol] 10*3/uL Normal <0.01 [facility] Comment on above: Order Comment: Speci men Type: BLOOD SPECIMEN Ordering Facility: [facility] Address: [address] [place] [address] Performed By: #### 2 4321-2, 10387-8, #### [facility] CLIA [id number] [address] Platelet mean volume (Bld) [Entitic vol] 10.4 fL Normal 9.0-12.7 [facility] Comment on above: Order Comment: Speci men Type: BLOOD SPECIMEN Ordering Facility: [facility] Address: [address] [place] [address] Performed By: #### 2 4321-2, 97051-0, #### [facility] CLIA [id number] [address] Platelets (Bld) [#/Vol] 245 10*3/uL Normal 150-400 [facility] Comment on above: Order Comment: Speci men Type: BLOOD SPECIMEN Ordering Facility: [facility] Address: [address] [place] [address] Performed By: #### 2 4321-2, 49042-2, #### [facility] CLIA [id number] [address] RBC (Bld) [#/Vol] 3.58 10*6/uL Low 3.90-5.20 [facility] Comment on above: Order Comment: Speci men Type: BLOOD SPECIMEN Ordering Facility: [facility] Address: [address] [place] [address] Performed By: #### 2 4321-2, 84658-6, #### [facility] CLIA [id number] [address] WBC (Bld) [#/Vol] 4.67 10*3/uL Normal 3.70-11.00 [facility] Comment on above: Order Comment: Speci men Type: BLOOD SPECIMEN Ordering Facility: [facility] Address: [address] [place] [address] Performed By: #### 2 4321-2, 22090-0, #### [facility] CLIA [id number] [address] CNDSon 06-19-2024 CNDS HNO ID: [id number] Author: DON EDWARDS DO Service: Hospital Medicine [...] eliquis. She was seen by therapy and long-term facility was recommended. He slowly was improving. She was discharged to long-term facility in stable condition. OTHER PROBLEMS/DIAGNOSIS: Principal [...] call for appointment?: Yes Jared Evans MD [phone] [facility] [address] PCP Requested Referral Follow-Up Appointment When: In 2 weeks Patient/Parents to call for appointment?: Yes Hermila Padilla MD [phone] [facility] [address] PCP Requested Referral Follow-Up Appointment For hydronephrosis and renal lesion When: In 2 weeks Patient/Parents to call for appointment?: Yes Mikhail Vuong Jr., MD [phone] [address] [facility] [address] PCP Requested Referral Follow-Up Appointment With: neurology When: In 4 weeks Patient/Parents to call for appointment?: Yes Additional Provider to Provider Information: Treatment Team: Attending Provider: Don Edwards DO Consulting: Pratibha Logan MD Consulting: Torsten Silva MD Primary Service: [facility] Critical Issues: SPECIALIST FOLLOW-UP: urology, cardiology, neurology LABS AND PROCEDURES PENDING AT DISCHARGE: No pending results. FOLLOW-UP APPOINTMENTS ALREADY SCHEDULED WITH A [facility] PROVIDER: No future appointments. Discharge Information Row Name ED to Hosp-Admission (Current) from 06/10/2024 in [place] 81 NEURO/CARD Rehab Facility Agency [facility] ALLERGIES Allergen Reactions Percocet [Oxycodone* Itching DISCHARGE MEDICA (more content not included)... Normal [facility] Basic metabolic 2000 panelon 06-18-2024 Anion gap [Moles/Vol] 10 mmol/L Normal 8-15 [facility] Comment on above: Order Comment: Speci men Type: BLOOD SPECIMEN Ordering Facility: [facility] Address: [address] [place] [address] Performed By: #### 2 4321-2, 61777-2, #### [facility] CLIA [id number] 1 [place] [address] [place] Calcium [Mass/Vol] 8.9 mg/dL Normal 8.5-10.2 [facility] Comment on above: Order Comment: Speci men Type: BLOOD SPECIMEN Ordering Facility: [facility] Address: [address] [place] [address] Performed By: #### 2 4321-2, 79977-7, #### [facility] CLIA [id number] 1 [place] [address] [place] Chloride [Moles/Vol] 110 mmol/L High 98-107 [facility] Comment on above: Order Comment: Speci men Type: BLOOD SPECIMEN Ordering Facility: [facility] Address: [address] [place] [address] Performed By: #### 2 1-2, 43417-9, #### [facility] CLIA [id number] 1 [place] [address] [place] CO2 [Moles/Vol] 21 mmol/L Low 22-30 [facility] Comment on above: Order Comment: Speci men Type: BLOOD SPECIMEN Ordering Facility: [facility] Address: [address] [place] [address] Performed By: #### 2 4321-2, 77013-4, #### [facility] CLIA [id number] 1 [place] [address] [place] Creatinine [Mass/Vol] 0.96 mg/dL Normal 0.58-0.96 [facility] Comment on above: Order Comment: Speci men Type: BLOOD SPECIMEN Ordering Facility: [facility] Address: [address] [place] [address] Performed By: #### 2 1-2, 69151-5, #### [facility] CLIA [id number] [address] OF [facility] Creatinine and Glomerular filtration rate.predicted panel (S/P/Bld) 58 mL/min/1.73m??? Low >=60 [facility] Comment on above: Order Comment: Rhina mason Type: BLOOD SPECIMEN Ordering Facility: [facility] Address: [address] [place] [address] Result Comment: Isa mated Glomerular Filtration Rate [...] actual GFR. Performed By: #### 2 4321-2, 67721-6, #### [facility] CLIA [id number] 1 [place] [address] [place] Glucose [Mass/Vol] 112 mg/dL High 74-99 [facility] Comment on above: Order Comment: Rhina mason Type: BLOOD SPECIMEN Ordering Facility: [facility] Address: [address] [place] [address] Result Comment: The [place] [employer] (ADA) provides guidance for cutoff [...] Standards of Medical Care in Diabetes 2016, [place] [employer]. Diabetes Care. 2016.39(Suppl 1). Performed By: #### 2 4321-2, 63673-9, #### [facility] CLIA [id number] 1 [place] [address] [place] Potassium [Moles/Vol] 4.4 mmol/L Normal 3.7-5.1 [facility] Comment on above: Order Comment: Speci men Type: BLOOD SPECIMEN Ordering Facility: [facility] Address: [address] [place] [address] Performed By: #### 2 4321-2, 32830-5, 23971-6 #### [facility] CLIA [id number] 1 [place] [address] [place] Sodium [Moles/Vol] 141 mmol/L Normal 136-144 [facility] Comment on above: Order Comment: Speci men Type: BLOOD SPECIMEN Ordering Facility: [facility] Address: [address] [place] [address] Performed By: #### 2 4321-2, 86896-2, #### [facility] CLIA [id number] [address] [place] Urea nitrogen [Mass/Vol] 22 mg/dL High 7-21 [facility] Comment on above: Order Comment: Speci men Type: BLOOD SPECIMEN Ordering Facility: [facility] Address: [address] [place] [address] Performed By: #### 2 4321-2, 00322-0, #### [facility] CLIA [id number] [address] [place] CBC panel Auto (Bld)on 06-18 Erythrocyte distribution width (RBC) [Ratio] 15.9 % High 11.5-15.0 [facility] Comment on above: Order Comment: Speci men Type: BLOOD SPECIMENOrdering Facility: [facility] Address: [address] [place] [address] Performed By: #### 5 8410-2 ####[facility] [id number] [address] [place] Hematocrit (Bld) [Volume fraction] 34.3 % Low 36.0-46.0 [facility] Comment on above: Order Comment: Speci men Type: BLOOD SPECIMENOrdering Facility: [facility] Address: [address] [place] [address] Performed By: #### 5 8410-2 ####[facility] [id number] [address] STATES OF [facility] Hemoglobin (Bld) [Mass/Vol] 10.7 g/dL Low 11.5-15.5 [facility] Comment on above: Order Comment: Speci men Type: BLOOD SPECIMENOrdering Facility: [facility] Address: [address] [place] [address] Performed By: #### 5 8410-2 ####[facility] [id number] [address] STATES OF [facility] MCH (RBC) [Entitic mass] 26.7 pg Normal 26.0-34.0 [facility] Comment on above: Order Comment: Speci men Type: BLOOD SPECIMENOrdering Facility: [facility] Address: [address] [place] [address] Performed By: #### 5 8410-2 ####[facility] [id number] [address] [place] MCHC (RBC) [Mass/Vol] 31.2 g/dL Normal 30.5-36.0 [facility] Comment on above: Order Comment: Speci men Type: BLOOD SPECIMENOrdering Facility: [facility] Address: [address] [place] [address] Performed By: #### 5 8410-2 ####[facility] [id number] [address] [place] MCV (RBC) [Entitic vol] 85.5 fL Normal 80.0-100.0 [facility] Comment on above: Order Comment: Speci men Type: BLOOD SPECIMENOrdering Facility: [facility] Address: [address] [place] [address] Performed By: #### 5 8410-2 ####[facility] [id number] [address] [place] Nucleated RBC (Bld) [#/Vol] 10*3/uL Normal <0.01 [facility] Comment on above: Order Comment: Speci men Type: BLOOD SPECIMENOrdering Facility: [facility] Address: [address] [place] [address] Performed By: #### 5 8410-2 ####[facility] [id number] [place] [address] [place] Platelet mean volume (Bld) [Entitic vol] 10.0 fL Normal 9.0-12.7 [facility] Comment on above: Order Comment: Speci men Type: BLOOD SPECIMENOrdering Facility: [facility] Address: [address] [place] [address] Performed By: #### 5 8410-2 ####[facility] [id number] [address] [place] Platelets (Bld) [#/Vol] 273 10*3/uL Normal 150-400 [facility] Comment on above: Order Comment: Speci men Type: BLOOD SPECIMENOrdering Facility: [facility] Address: [address] [place] [address] Performed By: #### 5 8410-2 ####[facility] [id number] [place] [address] [place] RBC (Bld) [#/Vol] 4.01 10*6/uL Normal 3.90-5.20 [facility] Comment on above: Order Comment: Speci men Type: BLOOD SPECIMENOrdering Facility: [facility] Address: [address] [place] [address] Performed By: #### 5 8410-2 ####[facility] [id number] [place] [address] [place] WBC (Bld) [#/Vol] 5.29 10*3/uL Normal 3.70-11.00 [facility] Comment on above: Order Comment: Speci men Type: BLOOD SPECIMENOrdering Facility: [facility] Address: [address] [place] [address] Performed By: #### 5 8410-2 ####[facility] [id number] [address] OF [facility] Hepatic function 2000 panelo n 06-18-2024 Albumin [Mass/Vol] 3.5 g/dL Low 3.9-4.9 [facility] Comment on above: Order Comment: Speci men Type: BLOOD SPECIMEN Ordering Facility: [facility] Address: [address] [place] [address] Performed By: #### 2 4321-2, 65837-4, #### [facility] CLIA [id number] [address] STATES OF [facility] ALP [Catalytic activity/Vol] 80 U/L Normal 34-123 [facility] Comment on above: Order Comment: Speci men Type: BLOOD SPECIMEN Ordering Facility: [facility] Address: [address] [place] [address] Performed By: #### 2 4321-2, 52538-0, #### [facility] CLIA [id number] [address] STATES OF [facility] ALT With P-5'-P [Catalytic activity/Vol] 16 U/L Normal 7-38 [facility] Comment on above: Order Comment: Speci men Type: BLOOD SPECIMEN Ordering Facility: [facility] Address: [address] [place] [address] Performed By: #### 2 4321-2, 22670-5, #### [facility] CLIA [id number] [address] [place] AST With P-5'-P [Catalytic activity/Vol] 20 U/L Normal 13-35 [facility] Comment on above: Order Comment: Speci men Type: BLOOD SPECIMEN Ordering Facility: [facility] Address: [address] [place] [address] Performed By: #### 2 4321-2, 88153-1, #### [facility] CLIA [id number] [address] [place] Bilirubin [Mass/Vol] 0.3 mg/dL Normal 0.2-1.3 [facility] Comment on above: Order Comment: Speci men Type: BLOOD SPECIMEN Ordering Facility: [facility] Address: [address] [place] [address] Performed By: #### 2 4321-2, 06480-6, #### [facility] CLIA [id number] [address] Bilirubin.conjugated [Mass/Vol] mg/dL Normal <0.2 [facility] Comment on above: Order Comment: Speci men Type: BLOOD SPECIMEN Ordering Facility: [facility] Address: [address] [place] [address] Performed By: #### 2 4321-2, 39831-4, #### [facility] CLIA [id number] [address] Protein [Mass/Vol] 6.0 g/dL Low 6.3-8.0 [facility] Comment on above: Order Comment: Speci men Type: BLOOD SPECIMEN Ordering Facility: [facility] Address: [address] [place] [address] Performed By: #### 2 4321-2, 37459-4, #### [facility] CLIA [id number] [address] [place] Magnesium SerPl-mCncon 06-18 Magnesium [Mass/Vol] 1.9 mg/dL Normal 1.7-2.3 [facility] Comment on above: Order Comment: Speci men Type: BLOOD SPECIMEN Ordering Facility: [facility] Address: [address] [place] [address] Performed By: #### 2 4321-2, 33822-2, #### [facility] CLIA [id number] [address] [place] NUTRITIONon 06-18-2024 NUTRITION HNO ID: [id number] Author: NELSON [address]IL[address] Service: Nutrition Therapy [...] Obtained From: Patient Weight Change: 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(s) ([employer]; 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) MNT Billing: $ Initial Assessment: 1-15 minutes SIGNATURE: Nelson Avila RD PATIENT NAME: Mel Castillo DATE: June 18, 2024 TIME: 11:18 AM Normal [facility] THERAPY NTon 06-18-2024 THERAPY NT HNO ID: [id number] Author: SELENA BARR, PT Service: Physical Therapy Author Type: Physical Therapist Type: Therapy (PT/OT/Speech/Resp) Filed: 06/18/2024 12:53 Note Text: Physical Therapy Treatment Summary SERVICE DATE: 06/18/2024 SERVICE TIME: 1056 to 1129 ROOM: [id number] PT 6 Clicks Score: 16 DISCHARGE RECOMMENDATIONS [...] Lack of coordination-other TREATMENT INTERVENTIONS Therapeutic Activity (14031) Therapeutic Activity (11918) Treatment Minutes: 25 $ Therapeutic Activity (73498) Billed Units: 2 units Timed Code Treatment [...] [facility] THERAPY NT HNO ID: [id number] Author: ULI JEFFERSON OTR/L Service: Occupational Therapy Author Type: Occupational Therapist Type: Therapy (PT/OT/Speech/Resp) Filed: 06/18/2024 13:34 Note Text: Occupational Therapy Treatment Summary SERVICE DATE: 06/18/2024 SERVICE TIME: 1130 to 1154 ROOM: [id number] OT 6 Clicks Score: 15 DISCHARGE RECOMMENDATIONS [...] General symptoms and signs-other TREATMENT INTERVENTIONS Self Correction Management (15294), Cognitive Training (91006 and 37774) Timed Code Treatment (minutes): 24 Skilled Treatment Time (minutes): 24 Self Correction Management (80369) Treatment Minutes: 11 $ Self Correction Management (93744) Billed Units: 1 unit Minimal assist with meal set-up. Cueing for physical assist with maintaining functional grasp on packaging to tear open. Pt demonstrated impaired hand-eye coordination/visual spatial awareness with bringing food to mouth. Provided further cueing and tactile awareness/sequencing to maximize ease with self feeding. Cognitive Training First 15 Minutes (84370) : 13 $ Cognitive Training First 15 Minutes (15696) Billed Units: 1 unit Facilitated completion of [facility] Mental Examination (UMS) to screen [...] Occupational Therapy, Safety/Judgment, Sitting Balance to Improve Nash with ADLs/Self-Care, Cognitive Skills, Command Following, Expected [...] Rhina mason Type: BLOOD SPECIMEN Ordering Facility: [facility] Address: [address] [place] [address] Performed By: #### 2 4321-2, 76251-7, 63350-3 #### [facility] CLIA [id number] [address] [place] [address] [place] Hematocrit (Bld) [Volume fraction] 35.1 % Low 36.0-46.0 [facility] Comment on above: Order Comment: Rhina mason Type: BLOOD SPECIMEN Ordering Facility: [facility] Address: [address] [place] [address] Performed By: #### 2 4321-2, 52394-7, #### [facility] CLIA [id number] [address] Hemoglobin (Bld) [Mass/Vol] 11.0 g/dL Low 11.5-15.5 [facility] Comment on above: Order Comment: Speci men Type: BLOOD SPECIMEN Ordering Facility: [facility] Address: [address] [place] [address] Performed By: #### 2 4321-2, 54826-0, #### [facility] CLIA [id number] [address] OF [facility] MCH (RBC) [Entitic mass] 26.4 pg Normal 26.0-34.0 [facility] Comment on above: Order Comment: Speci men Type: BLOOD SPECIMEN Ordering Facility: [facility] Address: [address] [place] [address] Performed By: #### 2 4321-2, 36361-0, #### [facility] CLIA [id number] [address] MCHC (RBC) [Mass/Vol] 31.3 g/dL Normal 30.5-36.0 [facility] Comment on above: Order Comment: Speci men Type: BLOOD SPECIMEN Ordering Facility: [facility] Address: [address] [place] [address] Performed By: #### 2 4321-2, 96761-6, #### [facility] CLIA [id number] [address] MCV (RBC) [Entitic vol] 84.4 fL Normal 80.0-100.0 [facility] Comment on above: Order Comment: Speci men Type: BLOOD SPECIMEN Ordering Facility: [facility] Address: [address] [place] [address] Performed By: #### 2 4321-2, 12412-8, #### [facility] CLIA [id number] 1 [place] [address] [place] Nucleated RBC (Bld) [#/Vol] 10*3/uL Normal <0.01 [facility] Comment on above: Order Comment: Speci men Type: BLOOD SPECIMEN Ordering Facility: [facility] Address: [address] [place] [address] Performed By: #### 2 1-2, 87433-6, #### [facility] CLIA [id number] 1 [place] [address] [place] Platelet mean volume (Bld) [Entitic vol] 10.1 fL Normal 9.0-12.7 [facility] Comment on above: Order Comment: Speci men Type: BLOOD SPECIMEN Ordering Facility: [facility] Address: [address] [place] [address] Performed By: #### 2 4320-2, 09720-2, #### [facility] CLIA [id number] [address] [place] Platelets (Bld) [#/Vol] 294 10*3/uL Normal 150-400 [facility] Comment on above: Order Comment: Speci men Type: BLOOD SPECIMEN Ordering Facility: [facility] Address: [address] [place] [address] Performed By: #### 2 4320-2, 58291-8, #### [facility] CLIA [id number] 1 [place] [address] [place] RBC (Bld) [#/Vol] 4.16 10*6/uL Normal 3.90-5.20 [facility] Comment on above: Order Comment: Speci men Type: BLOOD SPECIMEN Ordering Facility: [facility] Address: [address] [place] [address] Performed By: #### 2 1-2, 16170-7, #### [facility] CLIA [id number] [address] [place] [address] [place] WBC (Bld) [#/Vol] 5.63 10*3/uL Normal 3.70-11.00 [facility] Comment on above: Order Comment: Speci men Type: BLOOD SPECIMEN Ordering Facility: [facility] Address: [address] [place] [address] Performed By: #### 2 4321-2, 34376-5, #### [facility] CLIA [id number] [address] OF [facility] CBC panel Auto (Bld)on 06-16 Erythrocyte distribution width (RBC) [Ratio] 15.4 % High 11.5-15.0 [facility] Comment on above: Order Comment: Speci men Type: BLOOD SPECIMEN Ordering Facility: [facility] Address: [address] [place] [address] Performed By: #### 2 4321-2, 73748-5, #### [facility] CLIA [id number] [address] Hematocrit (Bld) [Volume fraction] 34.9 % Low 36.0-46.0 [facility] Comment on above: Order Comment: Speci men Type: BLOOD SPECIMEN Ordering Facility: [facility] Address: [address] [place] [address] Performed By: #### 2 4321-2, 29546-1, #### [facility] CLIA [id number] [address] [place] Hemoglobin (Bld) [Mass/Vol] 10.9 g/dL Low 11.5-15.5 [facility] Comment on above: Order Comment: Speci men Type: BLOOD SPECIMEN Ordering Facility: [facility] Address: [address] [place] [address] Performed By: #### 2 4321-2, 56437-7, #### [facility] CLIA [id number] [address] MCH (RBC) [Entitic mass] 26.4 pg Normal 26.0-34.0 [facility] Comment on above: Order Comment: Speci men Type: BLOOD SPECIMEN Ordering Facility: [facility] Address: [address] [place] [address] Performed By: #### 2 1-2, 57780-1, #### [facility] CLIA [id number] [address] MCHC (RBC) [Mass/Vol] 31.2 g/dL Normal 30.5-36.0 [facility] Comment on above: Order Comment: Speci men Type: BLOOD SPECIMEN Ordering Facility: [facility] Address: [address] [place] [address] Performed By: #### 2 1-2, 12781-3, #### [facility] CLIA [id number] [address] MCV (RBC) [Entitic vol] 84.5 fL Normal 80.0-100.0 [facility] Comment on above: Order Comment: Speci men Type: BLOOD SPECIMEN Ordering Facility: [facility] Address: [address] [place] [address] Performed By: #### 2 4320-2, 32873-0, #### [facility] CLIA [id number] [address] Nucleated RBC (Bld) [#/Vol] 10*3/uL Normal <0.01 [facility] Comment on above: Order Comment: Speci men Type: BLOOD SPECIMEN Ordering Facility: [facility] Address: [address] [place] [address] Performed By: #### 2 1-2, 40947-8, #### [facility] CLIA [id number] [address] Platelet mean volume (Bld) [Entitic vol] 9.8 fL Normal 9.0-12.7 [facility] Comment on above: Order Comment: Speci men Type: BLOOD SPECIMEN Ordering Facility: [facility] Address: [address] [place] [address] Performed By: #### 2 4321-2, 68480-1, 04351-3 #### [facility] CLIA [id number] [address] Platelets (Bld) [#/Vol] 274 10*3/uL Normal 150-400 [facility] Comment on above: Order Comment: Speci men Type: BLOOD SPECIMEN Ordering Facility: [facility] Address: [address] [place] [address] Performed By: #### 2 4321-2, 06788-5, #### [facility] CLIA [id number] [address] RBC (Bld) [#/Vol] 4.13 10*6/uL Normal 3.90-5.20 [facility] Comment on above: Order Comment: Speci men Type: BLOOD SPECIMEN Ordering Facility: [facility] Address: [address] [place] [address] Performed By: #### 2 4321-2, 66999-6, #### [facility] CLIA [id number] [address] WBC (Bld) [#/Vol] 6.06 10*3/uL Normal 3.70-11.00 [facility] Comment on above: Order Comment: Speci men Type: BLOOD SPECIMEN Ordering Facility: [facility] Address: [address] [place] [address] Performed By: #### 2 4321-2, 16703-6, 53802-8 #### [facility] CLIA [id number] [address] CBC panel Auto (Bld)on 06-15 Erythrocyte distribution width (RBC) [Ratio] 15.4 % High 11.5-15.0 [facility] Comment on above: Order Comment: Speci men Type: BLOOD SPECIMEN Ordering Facility: [facility] Address: [address] [place] [address] Performed By: #### 2 4321-2, 79771-2, #### [facility] CLIA [id number] [address] OF [facility] Hematocrit (Bld) [Volume fraction] 33.9 % Low 36.0-46.0 [facility] Comment on above: Order Comment: Speci men Type: BLOOD SPECIMEN Ordering Facility: [facility] Address: [address] [place] [address] Performed By: #### 2 1-2, 91783-0, #### [facility] CLIA [id number] [address] OF [facility] Hemoglobin (Bld) [Mass/Vol] 10.6 g/dL Low 11.5-15.5 [facility] Comment on above: Order Comment: Speci men Type: BLOOD SPECIMEN Ordering Facility: [facility] Address: [address] [place] [address] Performed By: #### 2 4320-2, 99114-8, #### [facility] CLIA [id number] [address] STATES OF [facility] MCH (RBC) [Entitic mass] 26.2 pg Normal 26.0-34.0 [facility] Comment on above: Order Comment: Speci men Type: BLOOD SPECIMEN Ordering Facility: [facility] Address: [address] [place] [address] Performed By: #### 2 4320-2, 25496-9, #### [facility] CLIA [id number] [address] [place] MCHC (RBC) [Mass/Vol] 31.3 g/dL Normal 30.5-36.0 [facility] Comment on above: Order Comment: Speci men Type: BLOOD SPECIMEN Ordering Facility: [facility] Address: [address] [place] [address] Performed By: #### 2 4321-2, 01943-5, #### [facility] CLIA [id number] [address] MCV (RBC) [Entitic vol] 83.9 fL Normal 80.0-100.0 [facility] Comment on above: Order Comment: Speci men Type: BLOOD SPECIMEN Ordering Facility: [facility] Address: [address] [place] [address] Performed By: #### 2 4321-2, 65194-1, #### [facility] CLIA [id number] [address] Nucleated RBC (Bld) [#/Vol] 10*3/uL Normal <0.01 [facility] Comment on above: Order Comment: Speci men Type: BLOOD SPECIMEN Ordering Facility: [facility] Address: [address] [place] [address] Performed By: #### 2 4321-2, 11883-6, #### [facility] CLIA [id number] [address] Platelet mean volume (Bld) [Entitic vol] 9.9 fL Normal 9.0-12.7 [facility] Comment on above: Order Comment: Speci men Type: BLOOD SPECIMEN Ordering Facility: [facility] Address: [address] [place] [address] Performed By: #### 2 4321-2, 38240-5, #### [facility] CLIA [id number] [address] Platelets (Bld) [#/Vol] 280 10*3/uL Normal 150-400 [facility] Comment on above: Order Comment: Speci men Type: BLOOD SPECIMEN Ordering Facility: [facility] Address: [address] [place] [address] Performed By: #### 2 4321-2, 15406-4, #### [facility] CLIA [id number] [address] [place] RBC (Bld) [#/Vol] 4.04 10*6/uL Normal 3.90-5.20 [facility] Comment on above: Order Comment: Speci men Type: BLOOD SPECIMEN Ordering Facility: [facility] Address: [address] [place], [place] [address] Performed By: #### 2 4321-2, 44673-4, #### [facility] CLIA [id number] [address] OF [facility] WBC (Bld) [#/Vol] 5.80 10*3/uL Normal 3.70-11.00 [facility] Comment on above: Order Comment: Speci men Type: BLOOD SPECIMEN Ordering Facility: [facility] Address: [address] [place], [place] [address] Performed By: #### 2 4321-2, 78256-4, #### [facility] CLIA [id number] [address] THERAPY NTon 06-15-2024 THERAPY NT HNO ID: [id number] Author: MEHREEN MANCERA, PT Service: Physical Therapy Author Type: Physical Therapist Type: Therapy (PT/OT/Speech/Resp) Filed: 06/15/2024 16:13 Note Text: Physical Therapy Treatment Summary SERVICE DATE: 06/15/2024 SERVICE TIME: 1518 to 1547 ROOM: [place] [address] PT 6 Clicks Score: 13 DISCHARGE RECOMMENDATIONS [...] Lack of coordination-other TREATMENT INTERVENTIONS Therapeutic Activity (86344), Neuromuscular Reeducation (30066) Timed Code Treatment (minutes): 29 Skilled Treatment Time (minutes): 29 Therapeutic Activity (66578) Treatment Minutes: 10 $ Therapeutic Activity (35085) Billed Units: 1 unit Neuromuscular Reeducation (40219) Treatment Minutes: 19 $ Neuromuscular Reeducation (54638) Billed Units: 1 unit Sitting balance and [...] Comment: Speci men Type: BLOOD SPECIMENOrdering Facility: [facility] Address: [address] [place] [address] Performed By: #### 5 8410-2 ####[facility] [id number] [place] [address] [place] Hematocrit (Bld) [Volume fraction] 34.8 % Low 36.0-46.0 [facility] Comment on above: Order Comment: Speci men Type: BLOOD SPECIMENOrdering Facility: [facility] Address: [address] [place] [address] Performed By: #### 5 8410-2 ####[facility] [id number] [place] [address] [place] Hemoglobin (Bld) [Mass/Vol] 11.0 g/dL Low 11.5-15.5 [facility] Comment on above: Order Comment: Speci men Type: BLOOD SPECIMENOrdering Facility: [facility] Address: [address] [place] [address] Performed By: #### 5 8410-2 ####[facility] [id number] [address] MCH (RBC) [Entitic mass] 26.6 pg Normal 26.0-34.0 [facility] Comment on above: Order Comment: Speci men Type: BLOOD SPECIMENOrdering Facility: [facility] Address: [address] [place] [address] Performed By: #### 5 8410-2 ####[facility] [id number] [address] MCHC (RBC) [Mass/Vol] 31.6 g/dL Normal 30.5-36.0 [facility] Comment on above: Order Comment: Speci men Type: BLOOD SPECIMENOrdering Facility: [facility] Address: [address] [place] [address] Performed By: #### 5 8410-2 ####[facility] [id number] [address] MCV (RBC) [Entitic vol] 84.3 fL Normal 80.0-100.0 [facility] Comment on above: Order Comment: Speci men Type: BLOOD SPECIMENOrdering Facility: [facility] Address: [address] [place] [address] Performed By: #### 5 8410-2 ####[facility] [id number] [address] Nucleated RBC (Bld) [#/Vol] 10*3/uL Normal <0.01 [facility] Comment on above: Order Comment: Speci men Type: BLOOD SPECIMENOrdering Facility: [facility] Address: [address] [place] [address] Performed By: #### 5 8410-2 ####[facility] [id number] [address] [place] Platelet mean volume (Bld) [Entitic vol] 9.7 fL Normal 9.0-12.7 [facility] Comment on above: Order Comment: Speci men Type: BLOOD SPECIMENOrdering Facility: [facility] Address: [address] [place] [address] Performed By: #### 5 8410-2 ####[facility] [id number] [place] [address] [place] Platelets (Bld) [#/Vol] 278 10*3/uL Normal 150-400 [facility] Comment on above: Order Comment: Speci men Type: BLOOD SPECIMENOrdering Facility: [facility] Address: [address] [place] [address] Performed By: #### 5 8410-2 ####[facility] [id number] [place] [address] [place] RBC (Bld) [#/Vol] 4.13 10*6/uL Normal 3.90-5.20 [facility] Comment on above: Order Comment: Speci men Type: BLOOD SPECIMENOrdering Facility: [facility] Address: [address] [place] [address] Performed By: #### 5 8410-2 ####[facility] [id number] [place] [address] [place] WBC (Bld) [#/Vol] 4.70 10*3/uL Normal 3.70-11.00 [facility] Comment on above: Order Comment: Speci men Type: BLOOD SPECIMENOrdering Facility: [facility] Address: [address] [place] [address] Performed By: #### 5 8410-2 ####[facility] [id number] [address] NURSING PROGon 06-14-2024 NURSING PROG HNO ID: [id number] Author: JOSE JERNIGAN RN Service: Nursing Author [...] portions of the right lung are clear. Veterans Employment Representative: PSCB Transcribe Date/Time: Jun 14 2024 1:33P Dictated by : DEV WELCH MD This examination was interpreted and the report reviewed and electronically signed by: DEV WELCH MD on Jun 14 2024 1:35PM EST [id number] Normal [facility] ALLIED HEALTHon 06-13-2024 ALLIED HEALTH HNO ID: [id number] Author: ALFRED DALEY Chaplain Service: ? Author Type: Batt Packer Type: Allied Health Filed: 06/13/2024 14:38 Note Text: SPIRITUAL CARE ASSESSMENT SERVICE DATE: 06/13/2024 SERVICE TIME: 11:53 Visit with: Patient Length of visit (minutes): 5 Jehovah'S Witness / Spirituality: Pt did not Disc. Reason: [...] TIME: 2:31 PM PAGER/CONTACT #: [phone] Normal [facility] Basic metabolic 2000 panelon 06-13-2024 Anion gap [Moles/Vol] 11 mmol/L Normal 8-15 [facility] Comment on above: Order Comment: Speci men Type: BLOOD SPECIMEN Ordering Facility: [facility] Address: [address] [place] [address] Performed By: #### 2 4321-2, 35899-8, #### [facility] CLIA [id number] [address] [place] [address] [place] Calcium [Mass/Vol] 8.9 mg/dL Normal 8.5-10.2 [facility] Comment on above: Order Comment: Speci men Type: BLOOD SPECIMEN Ordering Facility: [facility] Address: [address] [place] [address] Performed By: #### 2 4321-2, 81602-4, #### [facility] CLIA [id number] [address] [place] [address] [place] Chloride [Moles/Vol] 101 mmol/L Normal 98-107 [facility] Comment on above: Order Comment: Speci men Type: BLOOD SPECIMEN Ordering Facility: [facility] Address: [address] [place] [address] Performed By: #### 2 4321-2, 03263-3, #### [facility] CLIA [id number] [address] [place] [address] [place] CO2 [Moles/Vol] 24 mmol/L Normal 22-30 [facility] Comment on above: Order Comment: Speci men Type: BLOOD SPECIMEN Ordering Facility: [facility] Address: [address] [place] [address] Performed By: #### 2 4321-2, 40489-2, #### [facility] CLIA [id number] [address] STATES OF [facility] Creatinine [Mass/Vol] 1.04 mg/dL High 0.58-0.96 [facility] Comment on above: Order Comment: Rhina mason Type: BLOOD SPECIMEN Ordering Facility: [facility] Address: [address] [place] [address] Performed By: #### 2 4321-2, 01879-7, #### [facility] CLIA [id number] [address] Creatinine and Glomerular filtration rate.predicted panel (S/P/Bld) 53 mL/min/1.73m??? Low >=60 [facility] Comment on above: Order Comment: Rhina mason Type: BLOOD SPECIMEN Ordering Facility: [facility] Address: [address] [place] [address] Result Comment: Isa mated Glomerular Filtration Rate [...] actual GFR. Performed By: #### 2 4321-2, 50128-0, #### [facility] CLIA [id number] [address] OF [facility] Glucose [Mass/Vol] 95 mg/dL Normal 74-99 [facility] Comment on above: Order Comment: Rhina mason Type: BLOOD SPECIMEN Ordering Facility: [facility] Address: [address] [place] [address] Result Comment: The [place] [employer] (ADA) provides guidance for cutoff [...] Standards of Medical Care in Diabetes 2016, [place] [employer]. Diabetes Care. 2016.39(Suppl 1). Performed By: #### 2 4321-2, 82275-1, #### [facility] CLIA [id number] [address] [place] [address] [place] Potassium [Moles/Vol] 3.8 mmol/L Normal 3.7-5.1 [facility] Comment on above: Order Comment: Speci men Type: BLOOD SPECIMEN Ordering Facility: [facility] Address: [address] [place] [address] Performed By: #### 2 4321-2, 01268-1, #### [facility] CLIA [id number] [address] STATES OF [facility] Sodium [Moles/Vol] 136 mmol/L Normal 136-144 [facility] Comment on above: Order Comment: Speci men Type: BLOOD SPECIMEN Ordering Facility: [facility] Address: [address] [place] [address] Performed By: #### 2 1-2, 25643-5, #### [facility] CLIA [id number] [address] [place] Urea nitrogen [Mass/Vol] 16 mg/dL Normal 7-21 [facility] Comment on above: Order Comment: Speci men Type: BLOOD SPECIMEN Ordering Facility: [facility] Address: [address] [place] [address] Performed By: #### 2 4321-2, 90401-1, #### [facility] CLIA [id number] [address] [place] CBC panel Auto (Bld)on 06-13 Erythrocyte distribution width (RBC) [Ratio] 15.5 % High 11.5-15.0 [facility] Comment on above: Order Comment: Speci men Type: BLOOD SPECIMENOrdering Facility: [facility] Address: [address] [place] [address] Performed By: #### 5 8410-2 ####[facility] [id number] [address] Hematocrit (Bld) [Volume fraction] 33.1 % Low 36.0-46.0 [facility] Comment on above: Order Comment: Speci men Type: BLOOD SPECIMENOrdering Facility: [facility] Address: [address] [place] [address] Performed By: #### 5 8410-2 ####[facility] LABORATORYCLIA [id number] [address] Hemoglobin (Bld) [Mass/Vol] 10.2 g/dL Low 11.5-15.5 [facility] Comment on above: Order Comment: Speci men Type: BLOOD SPECIMENOrdering Facility: [facility] Address: [address] [place] [address] Performed By: #### 5 8410-2 ####[facility] LABORATORYCLIA [id number] [address] MCH (RBC) [Entitic mass] 26.5 pg Normal 26.0-34.0 [facility] Comment on above: Order Comment: Speci men Type: BLOOD SPECIMENOrdering Facility: [facility] Address: [address] [place] [address] Performed By: #### 5 8410-2 ####[facility] LABORATORYCLIA [id number] [address] MCHC (RBC) [Mass/Vol] 30.8 g/dL Normal 30.5-36.0 [facility] Comment on above: Order Comment: Speci men Type: BLOOD SPECIMENOrdering Facility: [facility] Address: [address] [place] [address] Performed By: #### 5 8410-2 ####[facility]ORATORYCLIA [id number] [address] MCV (RBC) [Entitic vol] 86.0 fL Normal 80.0-100.0 [facility] Comment on above: Order Comment: Speci men Type: BLOOD SPECIMENOrdering Facility: [facility] Address: [facility] [place] [address] Performed By: #### 5 8410-2 ####[facility] LABORATORYCLIA [id number] [address] [place] Nucleated RBC (Bld) [#/Vol] 10*3/uL Normal <0.01 [facility] Comment on above: Order Comment: Speci men Type: BLOOD SPECIMENOrdering Facility: [facility] Address: [address] [place] [address] Performed By: #### 5 8410-2 ####[facility]ORATORYCLIA [id number] [address] [place] Platelet mean volume (Bld) [Entitic vol] 9.6 fL Normal 9.0-12.7 [facility] Comment on above: Order Comment: Speci men Type: BLOOD SPECIMENOrdering Facility: [facility] Address: [address] [place] [address] Performed By: #### 5 8410-2 ####[facility] LABORATORYCLIA [id number] [address] [place] Platelets (Bld) [#/Vol] 287 10*3/uL Normal 150-400 [facility] Comment on above: Order Comment: Speci men Type: BLOOD SPECIMENOrdering Facility: [facility] Address: [address] [place] [address] Performed By: #### 5 8410-2 ####[facility] LABORATORYCLIA [id number] [place] [address] [place] RBC (Bld) [#/Vol] 3.85 10*6/uL Low 3.90-5.20 [facility] Comment on above: Order Comment: Speci men Type: BLOOD SPECIMENOrdering Facility: [facility] Address: [address] [place] [address] Performed By: #### 5 8410-2 ####[facility] LABORATORYCLIA [id number] [place] [address] [place] WBC (Bld) [#/Vol] 4.79 10*3/uL Normal 3.70-11.00 [facility] Comment on above: Order Comment: Speci men Type: BLOOD SPECIMENOrdering Facility: [facility] Address: [address] [place] [address] Performed By: #### 5 8410-2 ####[facility] LABORATORYCLIA [id number] [address] aPTT PPPon 06-13-2024 aPTT Coag (PPP) [Time] 51.3 s High 23.0-32.4 [facility] Comment on above: Order Comment: Speci men Type: BLOOD SPECIMEN [facility] Address: [address] [place] [address] Performed By: #### 2 4321-2, 50151-4, 67888-9 #### [facility] CLIA [id number] [address] aPTT Coag (PPP) [Time] 89.0 s High 23.0-32.4 [facility] Comment on above: Order Comment: Speci men Type: BLOOD SPECIMEN [facility] Address: [address] [place] [address] Performed By: #### 2 4321-2, 72449-9, 27443-1 #### [facility] CLIA [id number] [address] [place] ALLIED HEALTHon 06-12-2024 ALLIED HEALTH HNO ID: [id number] Author: MONA SEVILLA RT(R) Service: Radiology Author [...] PATIENT PRESENTS WITH AN IMPLANTABLE OR ATTACHED DREDGING INSPECTOR: No RADIOLOGY DEPARTMENT: CT; Exam(s) Completed: Brain PERIPHERAL IV DATA: Not applicable SIGNED BY: Mona Sevilla RT(R) June 12, 2024 9:13 AM Normal [facility] CBC W Auto Differential pane l (Bld)on 06-12-2024 Basophils (Bld) [#/Vol] 0.03 10*3/uL Normal <0.11 [facility] Comment on above: Order Comment: Speci men Type: BLOOD SPECIMEN [facility] Address: [address] [place] [address] Performed By: #### 2 4321-2, 44795-2, #### [facility] CLIA [id number] 1 [place] [address] [place] Basophils/100 WBC (Bld) 0.6 % Normal [facility] Comment on above: Order Comment: Speci men Type: BLOOD SPECIMEN [facility] Address: [address] [place] [address] Performed By: #### 2 1-2, 55784-5, #### [facility] CLIA [id number] 1 [place] [address] [place] Differential cell count method Nom (Bld) Auto Normal [facility] Comment on above: Order Comment: Speci men Type: BLOOD SPECIMEN [facility] Address: [address] [place] [address] Performed By: #### 2 4321-2, 14345-6, #### [facility] CLIA [id number] 1 [place] [address] [place] Eosinophils (Bld) [#/Vol] 0.05 10*3/uL Normal <0.46 [facility] Comment on above: Order Comment: Speci men Type: BLOOD SPECIMEN [facility] Address: [address] [place] [address] Performed By: #### 2 4321-2, 11473-3, #### [facility] CLIA [id number] [address] STATES OF [facility] Eosinophils/100 WBC (Bld) 1.0 % Normal [facility] Comment on above: Order Comment: Speci men Type: BLOOD SPECIMEN [facility] Address: [address] [place] [address] Performed By: #### 2 4321-2, 41559-2, #### [facility] CLIA [id number] [address] [place] Erythrocyte distribution width (RBC) [Ratio] 15.6 % High 11.5-15.0 [facility] Comment on above: Order Comment: Speci men Type: BLOOD SPECIMEN [facility] Address: [address] [place] [address] Performed By: #### 2 4321-2, 57873-7, #### [facility] CLIA [id number] [address] [place] Hematocrit (Bld) [Volume fraction] 34.6 % Low 36.0-46.0 [facility] Comment on above: Order Comment: Speci men Type: BLOOD SPECIMEN [facility] Address: [address] [place] [address] Performed By: #### 2 4321-2, 34701-5, #### [facility] CLIA [id number] [address] [place] Hemoglobin (Bld) [Mass/Vol] 10.6 g/dL Low 11.5-15.5 [facility] Comment on above: Order Comment: Speci men Type: BLOOD SPECIMEN [facility] Address: [address] [place] [address] Performed By: #### 2 4321-2, 30580-4, #### [facility] CLIA [id number] [address] [place] Immature granulocytes (Bld) [#/Vol] 10*3/uL Normal <0.10 [facility] Comment on above: Order Comment: Speci men Type: BLOOD SPECIMEN [facility] Address: [address] [place] [address] Performed By: #### 2 4321-2, 52202-3, #### [facility] CLIA [id number] [address] [place] Immature granulocytes/100 WBC (Bld) 0.2 % Normal [facility] Comment on above: Order Comment: Speci men Type: BLOOD SPECIMEN [facility] Address: [address] [place] [address] Performed By: #### 2 1-2, 86862-4, #### [facility] CLIA [id number] 1 [place] [address] [place] Lymphocytes (Bld) [#/Vol] 1.65 10*3/uL Normal 1.00-4.00 [facility] Comment on above: Order Comment: Speci men Type: BLOOD SPECIMEN [facility] Address: [address] [place] [address] Performed By: #### 2 1-2, 87108-6, #### [facility] CLIA [id number] [address] [place] Lymphocytes/100 WBC (Bld) 31.9 % Normal [facility] Comment on above: Order Comment: Speci men Type: BLOOD SPECIMEN [facility] Address: [facility] [place] [address] Performed By: #### 2 4321-2, 51447-8, #### [facility] CLIA [id number] [address] MCH (RBC) [Entitic mass] 26.2 pg Normal 26.0-34.0 [facility] Comment on above: Order Comment: Speci men Type: BLOOD SPECIMEN [facility] Address: [address] [place] [address] Performed By: #### 2 4321-2, 26396-0, #### [facility] CLIA [id number] [address] MCHC (RBC) [Mass/Vol] 30.6 g/dL Normal 30.5-36.0 [facility] Comment on above: Order Comment: Speci men Type: BLOOD SPECIMEN [facility] Address: [address] [place] [address] Performed By: #### 2 4321-2, 41153-8, #### [facility] CLIA [id number] [address] MCV (RBC) [Entitic vol] 85.6 fL Normal 80.0-100.0 [facility] Comment on above: Order Comment: Speci men Type: BLOOD SPECIMEN [facility] Address: [address] [place] [address] Performed By: #### 2 4321-2, 22110-2, #### [facility] CLIA [id number] [address] Monocytes (Bld) [#/Vol] 0.46 10*3/uL Normal <0.87 [facility] Comment on above: Order Comment: Speci men Type: BLOOD SPECIMEN [facility] Address: [address] [place] [address] Performed By: #### 2 4321-2, 85069-5, #### [facility] CLIA [id number] [address] Monocytes/100 WBC (Bld) 8.9 % Normal [facility] Comment on above: Order Comment: Speci men Type: BLOOD SPECIMEN [facility] Address: [address] [place] [address] Performed By: #### 2 4321-2, 68702-9, #### [facility] CLIA [id number] [address] [place] Neutrophils (Bld) [#/Vol] 2.97 10*3/uL Normal 1.45-7.50 [facility] Comment on above: Order Comment: Speci men Type: BLOOD SPECIMEN [facility] Address: [address] [place] [address] Performed By: #### 2 4321-2, 15760-4, #### [facility] CLIA [id number] [address] [place] Neutrophils/100 WBC (Bld) 57.4 % Normal [facility] Comment on above: Order Comment: Speci men Type: BLOOD SPECIMEN [facility] Address: [address] [place] [address] Performed By: #### 2 1-2, 50565-8, #### [facility] CLIA [id number] 1 [place] [address] [place] Nucleated RBC (Bld) [#/Vol] 10*3/uL Normal <0.01 [facility] Comment on above: Order Comment: Speci men Type: BLOOD SPECIMEN [facility] Address: [address] [place] [address] Performed By: #### 2 4321-2, 52717-9, #### [facility] CLIA [id number] 1 [place] [address] [place] Nucleated RBC/100 WBC (Bld) [Ratio] 0.0 /100 WBC Normal [facility] Comment on above: Order Comment: Speci men Type: BLOOD SPECIMEN [facility] Address: [address] [place] [address] Performed By: #### 2 4321-2, 83773-5, #### [facility] CLIA [id number] [address] [place] Platelet mean volume (Bld) [Entitic vol] 9.6 fL Normal 9.0-12.7 [facility] Comment on above: Order Comment: Speci men Type: BLOOD SPECIMEN [facility] Address: [address] [place] [address] Performed By: #### 2 1-2, 08032-5, #### [facility] CLIA [id number] 1 [place] [address] [place] Platelets (Bld) [#/Vol] 314 10*3/uL Normal 150-400 [facility] Comment on above: Order Comment: Speci men Type: BLOOD SPECIMEN [facility] Address: [address] [place] [address] Performed By: #### 2 4320-2, 86767-3, #### [facility] CLIA [id number] [address] [place] RBC (Bld) [#/Vol] 4.04 10*6/uL Normal 3.90-5.20 [facility] Comment on above: Order Comment: Speci men Type: BLOOD SPECIMEN [facility] Address: [address] [place] [address] Performed By: #### 2 4320-2, 25856-9, #### [facility] CLIA [id number] [address] [place] WBC (Bld) [#/Vol] 5.17 10*3/uL Normal 3.70-11.00 [facility] Comment on above: Order Comment: Speci men Type: BLOOD SPECIMEN [facility] Address: [address] [place] [address] Performed By: #### 2 4321-2, 58176-3, #### [facility] CLIA [id number] [address] [place] CONSULTon 06-12-2024 CONSULT HNO ID: [id number] Author: MINA TALBERT MD Service: Cardiovascular Disease Author Type: Physician Type: Consults Filed: 06/12/2024 10:40 Note Text: CARDIOLOGY CONSULTATION- [facility] Patient Name: Mel Castillo : 1940 PRIMARY CARE PHYSICIAN: Jared Evans MD [address] [place] [id number] REFERRING PHYSICIAN No referring provider defined for [...] presumptive 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[facility] with history of prior stroke PAD COPD [...] the hospital a few months ago at [facility] she was taking her Eliquis and [...] AM) Don Edwards DO 40 mg at 06/11/24919 NaCl 0.9% iv flush bag 20 mL [...] CONSULT PROGon 06-12-2024 CONSULT PROG HNO ID: [id number] Author: NICOLAS TESFAYE APRN.SCHOOL NURSE Service: Neurology General Author Type: Nurse Practitioner [...] Score: 1 (06/12/24 0945 : Nicolas Tesfaye APRN.SCHOOL NURSE) 1 MENTAL STATUS: Alert, oriented to person, [...] Care and Prevention (personally reviewed by Nicolas Tesfaey, ELECTRIC METER REPAIRER HELPER.SCHOOL NURSE): Daily Rounding Date: 06/12/24 Daily Rounding Time: [...] DATE OF EXAM: Jun 12 2024 9:25AM [facility] 0504 - CT BRAIN WO [...] intracranial hemorrhage. Chronic changes, as detailed above. Veterans Employment Representative: [facility] Transcribe Date/Time: Jun 12 2024 9:42A Dictated [...] Speci men Type: BLOOD SPECIMEN [facility] Address: [address] [place] [address] Performed By: #### 2 4321-2, 79037-7, 98841-3 #### [facility] CLIA [id number] 1 [place] [address] [place] ALP [Catalytic activity/Vol] 88 U/L Normal 34-123 [facility] Comment on above: Order Comment: Speci men Type: BLOOD SPECIMEN [facility] Address: [address] [place] [address] Performed By: #### 2 4321-2, 70596-0, #### [facility] CLIA [id number] [address] OF [facility] ALT With P-5'-P [Catalytic activity/Vol] 6 U/L Low 7-38 [facility] Comment on above: Order Comment: Speci men Type: BLOOD SPECIMEN [facility] Address: [address] [place] [address] Performed By: #### 2 4321-2, 66865-8, #### [facility] CLIA [id number] [address] OF [facility] Anion gap [Moles/Vol] 13 mmol/L Normal 8-15 [facility] Comment on above: Order Comment: Speci men Type: BLOOD SPECIMEN [facility] Address: [address] [place] [address] Performed By: #### 2 4321-2, 75364-7, #### [facility] CLIA [id number] [address] AST With P-5'-P [Catalytic activity/Vol] 9 U/L Low 13-35 [facility] Comment on above: Order Comment: Speci men Type: BLOOD SPECIMEN [facility] Address: [address] [place] [address] Performed By: #### 2 4321-2, 61326-7, #### [facility] CLIA [id number] [address] [place] Bilirubin [Mass/Vol] 0.6 mg/dL Normal 0.2-1.3 [facility] Comment on above: Order Comment: Speci men Type: BLOOD SPECIMEN [facility] Address: [address] [place] [address] Performed By: #### 2 4321-2, 74322-7, #### [facility] CLIA [id number] 1 [place] [address] [place] Calcium [Mass/Vol] 9.2 mg/dL Normal 8.5-10.2 [facility] Comment on above: Order Comment: Speci men Type: BLOOD SPECIMEN [facility] Address: [address] [place] [address] Performed By: #### 2 4321-2, 63522-9, #### [facility] CLIA [id number] 1 [place] [address] [place] Chloride [Moles/Vol] 101 mmol/L Normal 98-107 [facility] Comment on above: Order Comment: Speci men Type: BLOOD SPECIMEN [facility] Address: [address] [place] [address] Performed By: #### 2 4321-2, 37632-4, #### [facility] CLIA [id number] 1 [place] [address] [place] CO2 [Moles/Vol] 23 mmol/L Normal 22-30 [facility] Comment on above: Order Comment: Speci men Type: BLOOD SPECIMEN [facility]: [facility] Address: [address] [place] [address] Performed By: #### 2 4321-2, 42784-8, #### [facility] CLIA [id number] 1 [place] [address] [place] Creatinine [Mass/Vol] 1.02 mg/dL High 0.58-0.96 [facility] Comment on above: Order Comment: Speci men Type: BLOOD SPECIMEN [facility] Facility: [facility] Address: [address] [place] [address] Performed By: #### 2 4321-2, 11863-5, #### [facility] CLIA [id number] 1 [place] [address] [place] Creatinine and Glomerular filtration rate.predicted panel (S/P/Bld) 54 mL/min/1.73m??? Low >=60 [facility] Comment on above: Order Comment: Rhina mason Type: BLOOD SPECIMEN [facility] Facility: [facility] Address: [address] [place] [address] Result Comment: Isa mated Glomerular Filtration Rate [...] actual GFR. Performed By: #### 2 4321-2, 89570-9, #### [facility] CLIA [id number] 1 [place] [address] [place] Glucose [Mass/Vol] 109 mg/dL High 74-99 [facility] Comment on above: Order Comment: Rhina mason Type: BLOOD SPECIMEN [facility]ing Facility: [facility] Address: [address] [place] [address] Result Comment: The [place] [employer] (ADA) provides guidance for cutoff [...] Standards of Medical Care in Diabetes 2016, [place] [employer]. Diabetes Care. 2016.39(Suppl 1). Performed By: #### 2 4321-2, 20812-3, #### [facility] CLIA [id number] 1 [place] [address] [place] Potassium [Moles/Vol] 4.0 mmol/L Normal 3.7-5.1 [facility] Comment on above: Order Comment: Speci men Type: BLOOD SPECIMEN [facility]ing Facility: [facility] Address: [address] [place] [address] Performed By: #### 2 4321-2, 63580-9, #### [facility] CLIA [id number] 1 [place] [address] [place] Protein [Mass/Vol] 6.4 g/dL Normal 6.3-8.0 [facility] Comment on above: Order Comment: Speci men Type: BLOOD SPECIMEN Ordering Facility: [facility] Address: [address] [place] [address] Performed By: #### 2 4321-2, 37603-8, #### [facility] CLIA [id number] 1 [place] [address] [place] Sodium [Moles/Vol] 137 mmol/L Normal 136-144 [facility] Comment on above: Order Comment: Speci men Type: BLOOD SPECIMEN Ordering Facility: [facility] Address: [address] [place] [address] Performed By: #### 2 4321-2, 95358-2, #### [facility] CLIA [id number] 1 [place] [address] [place] Urea nitrogen [Mass/Vol] 12 mg/dL Normal 7-21 [facility] Comment on above: Order Comment: Speci men Type: BLOOD SPECIMEN [facility]ing Facility: [facility] Address: [address] [place] [address] Performed By: #### 2 4321-2, 04564-3, #### [facility] CLIA [id number] [address] [place] [address] [place] Magnesium SerPl-mCncon 06-12 Magnesium [Mass/Vol] 2.3 mg/dL Normal 1.7-2.3 [facility] Comment on above: Order Comment: Speci men Type: BLOOD SPECIMEN [facility]ing Facility: [facility] Address: [address] [place] [address] Performed By: #### 2 4321-2, 60818-7, 26949-1 #### [facility] CLIA [id number] [address] NURSING PROGon 06-12-2024 NURSING PROG HNO ID: [id number] Author: ROBINSON VELÁSQUEZ, RN Service: ? Author [...] PT EDon 06-12-2024 PT ED HNO ID: [id number] Author: DOT PETERSON tim Service: Pharmacy Author Type: ? Type: Patient Education Filed: 06/12/2024 16:17 Note Text: Attestation signed by Dot Peterson [facility] at 06/12/2024 4:17 PM I [...] questions. Patient aware of copay. Nayana Rowan, Collection Systems Modeler Normal [facility] THERAPY NTon 06-12-2024 THERAPY NT HNO ID: [id number] Author: LATOYA LONG, PT Service: Physical Therapy Author Type: Physical Therapist Type: Therapy (PT/OT/Speech/Resp) Filed: 06/12/2024 15:33 Note Text: Physical Therapy Treatment Summary SERVICE DATE: 06/12/2024 SERVICE TIME: 1445 to 1509 ROOM: [place] [address] PT 6 Clicks Score: 13 DISCHARGE RECOMMENDATIONS [...] Lack of coordination-other TREATMENT INTERVENTIONS Therapeutic Activity (48366), Neuromuscular Reeducation (00171) Timed Code Treatment (minutes): 23 Skilled Treatment Time (minutes): 23 Therapeutic Activity (83885) Treatment Minutes: 10 $ Therapeutic Activity (00209) Billed Units: 1 unit Training and assist with bed mobility, transfers and taking steps in place and side steps along the EOB with the walker. Neuromuscular Reeducation (31902) Treatment Minutes: 13 $ Neuromuscular Reeducation (18921) Billed Units: 1 unit Instructed pt in [...] [facility] THERAPY NT HNO ID: [id number] Author: SHANNAN SEGOVIA OTR/[place] Service: Occupational Therapy Author Type: Occupational Therapist Type: Therapy (PT/OT/Speech/Resp) Filed: 06/12/2024 08:50 Note Text: Occupational Therapy Evaluation Summary SERVICE DATE: 06/12/2024 SERVICE TIME: 08 to 08 ROOM: [place] [address] OT 6 Clicks Score: 15 DISCHARGE RECOMMENDATIONS [...] and signs-other TREATMENT INTERVENTIONS Evaluation, Therapeutic Activity (52723) Timed Code Treatment (minutes): 8 Skilled Treatment Time (minutes): 23 $ Evaluation - Moderate (79191) Billed Units: 1 unit Therapeutic Activity (32648) Treatment Minutes: 8 $ Therapeutic Activity (36478) Billed Units: 1 unit TRAINING AND EDUCATION PROVIDED Assistive Device Use, Bed Mobility, Benefits of In-Hospital Mobility, Cognitive Stimulation Activities, Discharge Planning, Disease Specific Education, Role of Occupational Therapy, Safety/Judgment, Sitting Balance to Improve Nash with ADLs/Self-Care THERAPEUTIC SKILLS USED Activity Dosing, [...] Coag (PPP) [Time] 56.1 s High 23.0-32.4 [facility] Comment on above: Order Comment: Speci men Type: BLOOD SPECIMEN Ordering Facility: [facility] Address: [address] [place] [address] Performed By: #### 2 4321-2, 94190-6, 34124-9 #### [facility] CLIA [id number] [address] aPTT Coag (PPP) [Time] 79.0 s High 23.0-32.4 [facility] Comment on above: Order Comment: Speci men Type: BLOOD SPECIMEN Ordering Facility: [facility] Address: [address] [place] [address] Performed By: #### 1 4979-9 #### [facility] CLIA [id number] [address] aPTT Coag (PPP) [Time] 123.9 s High 23.0-32.4 [facility] Comment on above: Order Comment: Speci men Type: BLOOD SPECIMEN Ordering Facility: [facility] Address: [address] [place], [place] [address] Performed By: #### 2 4321-2, 87745-7, 58705-4 #### [facility] CLIA [id number] [address] aPTT Coag (PPP) [Time] 117.3 s High 23.0-32.4 [facility] Comment on above: Order Comment: Speci men Type: BLOOD SPECIMEN Ordering Facility: [facility] Address: [address] [place], [place] [address] Performed By: #### 2 4321-2, 88060-3, 63216-8 #### [facility] CLIA [id number] 1 [place] [id number] [facility] 36on 06-11-2024 36 Normal [facility] ALLIED HEALTHon 06-11-2024 ALLIED HEALTH HNO ID: [id number] Author: FABIO KERR Tech Service: ? Author Type: Salesperson Hearing Aids Type: Allied Health Filed: 06/11/2024 14:16 Note [...] PATIENT PRESENTS WITH AN IMPLANTABLE OR ATTACHED DREDGING INSPECTOR: No RADIOLOGY DEPARTMENT: MR; Exam(s) Completed: Head: Routine Brain [place] MRA MRA Carotid PERIPHERAL IV DATA: Not applicable SIGNED BY: Anne Marie Carrillo June 11, 2024 2:15 PM Normal [facility] CBC W Auto Differential pane l (Bld)on 06-11-2024 Basophils (Bld) [#/Vol] 0.03 10*3/uL Normal <0.11 [facility] Comment on above: Order Comment: Speci men Type: BLOOD SPECIMEN Ordering Facility: [facility] Address: [address] [place] [address] Performed By: #### 2 4321-2, 62949-3, #### [facility] CLIA [id number] [address] [place] Basophils/100 WBC (Bld) 0.4 % Normal [facility] Comment on above: Order Comment: Speci men Type: BLOOD SPECIMEN Ordering Facility: [facility] Address: [address] [place] [address] Performed By: #### 2 4321-2, 63330-5, #### [facility] CLIA [id number] [address] [place] Differential cell count method Nom (Bld) Auto Normal [facility] Comment on above: Order Comment: Speci men Type: BLOOD SPECIMEN Ordering Facility: [facility] Address: [address] [place] [address] Performed By: #### 2 4321-2, 17279-3, #### [facility] CLIA [id number] 1 [place] [address] [place] Eosinophils (Bld) [#/Vol] 10*3/uL Normal <0.46 [facility] Comment on above: Order Comment: Speci men Type: BLOOD SPECIMEN Ordering Facility: [facility] Address: [address] [place] [address] Performed By: #### 2 4321-2, 16674-6, #### [facility] CLIA [id number] [address] [place] Eosinophils/100 WBC (Bld) 0.3 % Normal [facility] Comment on above: Order Comment: Speci men Type: BLOOD SPECIMEN Ordering Facility: [facility] Address: [address] [place] [address] Performed By: #### 2 4321-2, 47365-5, #### [facility] CLIA [id number] [address] [place] Erythrocyte distribution width (RBC) [Ratio] 15.6 % High 11.5-15.0 [facility] Comment on above: Order Comment: Speci men Type: BLOOD SPECIMEN Ordering Facility: [facility] Address: [address] [place] [address] Performed By: #### 2 1-2, 30198-6, #### [facility] CLIA [id number] [address] [place] Hematocrit (Bld) [Volume fraction] 37.6 % Normal 36.0-46.0 [facility] Comment on above: Order Comment: Speci men Type: BLOOD SPECIMEN Ordering Facility: [facility] Address: [address] [place] [address] Performed By: #### 2 4320-2, 13276-9, #### [facility] CLIA [id number] [address] [place] Hemoglobin (Bld) [Mass/Vol] 11.5 g/dL Normal 11.5-15.5 [facility] Comment on above: Order Comment: Speci men Type: BLOOD SPECIMEN Ordering Facility: [facility] Address: [address] [place] [address] Performed By: #### 2 4320-2, 32864-2, #### [facility] CLIA [id number] [address] [place] Immature granulocytes (Bld) [#/Vol] 0.03 10*3/uL Normal <0.10 [facility] Comment on above: Order Comment: Speci men Type: BLOOD SPECIMEN Ordering Facility: [facility] Address: [address] [place] [address] Performed By: #### 2 4321-2, 31109-8, #### [facility] CLIA [id number] [address] [place] Immature granulocytes/100 WBC (Bld) 0.4 % Normal [facility] Comment on above: Order Comment: Speci men Type: BLOOD SPECIMEN Ordering Facility: [facility] Address: [address] [place] [address] Performed By: #### 2 4321-2, 43993-9, #### [facility] CLIA [id number] [address] [place] Lymphocytes (Bld) [#/Vol] 1.26 10*3/uL Normal 1.00-4.00 [facility] Comment on above: Order Comment: Speci men Type: BLOOD SPECIMEN Ordering Facility: [facility] Address: [address] [place] [address] Performed By: #### 2 4321-2, 58130-4, #### [facility] CLIA [id number] [address] Lymphocytes/100 WBC (Bld) 16.9 % Normal [facility] Comment on above: Order Comment: Speci men Type: BLOOD SPECIMEN Ordering Facility: [facility] Address: [address] [place] [address] Performed By: #### 2 4321-2, 69303-5, #### [facility] CLIA [id number] [address] [place] MCH (RBC) [Entitic mass] 26.6 pg Normal 26.0-34.0 [facility] Comment on above: Order Comment: Speci men Type: BLOOD SPECIMEN Ordering Facility: [facility] Address: [address] [place] [address] Performed By: #### 2 4321-2, 32293-0, #### [facility] CLIA [id number] [address] [place] MCHC (RBC) [Mass/Vol] 30.6 g/dL Normal 30.5-36.0 [facility] Comment on above: Order Comment: Speci men Type: BLOOD SPECIMEN Ordering Facility: [facility] Address: [address] [place] [address] Performed By: #### 2 4321-2, 31924-1, #### [facility] CLIA [id number] [address] MCV (RBC) [Entitic vol] 87.0 fL Normal 80.0-100.0 [facility] Comment on above: Order Comment: Speci men Type: BLOOD SPECIMEN Ordering Facility: [facility] Address: [address] [place] [address] Performed By: #### 2 1-2, 09608-3, #### [facility] CLIA [id number] [address] [place] Monocytes (Bld) [#/Vol] 0.68 10*3/uL Normal <0.87 [facility] Comment on above: Order Comment: Speci men Type: BLOOD SPECIMEN Ordering Facility: [facility] Address: [address] [place] [address] Performed By: #### 2 4320-2, 99188-1, #### [facility] CLIA [id number] [address] Monocytes/100 WBC (Bld) 9.1 % Normal [facility] Comment on above: Order Comment: Speci men Type: BLOOD SPECIMEN Ordering Facility: [facility] Address: [address] [place] [address] Performed By: #### 2 4320-2, 84907-1, #### [facility] CLIA [id number] [address] [place] Neutrophils (Bld) [#/Vol] 5.43 10*3/uL Normal 1.45-7.50 [facility] Comment on above: Order Comment: Speci men Type: BLOOD SPECIMEN Ordering Facility: [facility] Address: [address] [place] [address] Performed By: #### 2 4320-2, 60819-1, #### [facility] CLIA [id number] [address] [place] Neutrophils/100 WBC (Bld) 72.9 % Normal [facility] Comment on above: Order Comment: Speci men Type: BLOOD SPECIMEN Ordering Facility: [facility] Address: [address] [place] [address] Performed By: #### 2 1-2, 34527-9, #### [facility] CLIA [id number] [address] [place] Nucleated RBC (Bld) [#/Vol] 10*3/uL Normal <0.01 [facility] Comment on above: Order Comment: Speci men Type: BLOOD SPECIMEN Ordering Facility: [facility] Address: [address] [place] [address] Performed By: #### 2 4320-2, 51773-8, #### [facility] CLIA [id number] [address] [place] Nucleated RBC/100 WBC (Bld) [Ratio] 0.0 /100 WBC Normal [facility] Comment on above: Order Comment: Speci men Type: BLOOD SPECIMEN Ordering Facility: [facility] Address: [address] [place] [address] Performed By: #### 2 4320-2, 11361-6, #### [facility] CLIA [id number] 1 [place] [address] [place] Platelet mean volume (Bld) [Entitic vol] 9.5 fL Normal 9.0-12.7 [facility] Comment on above: Order Comment: Speci men Type: BLOOD SPECIMEN Ordering Facility: [facility] Address: [address] [place] [address] Performed By: #### 2 1-2, 58460-1, #### [facility] CLIA [id number] 1 [place] [address] [place] Platelets (Bld) [#/Vol] 329 10*3/uL Normal 150-400 [facility] Comment on above: Order Comment: Speci men Type: BLOOD SPECIMEN Ordering Facility: [facility] Address: [address] [place] [address] Performed By: #### 2 4321-2, 05504-9, 81781-5 #### [facility] CLIA [id number] 1 [place] [address] [place] RBC (Bld) [#/Vol] 4.32 10*6/uL Normal 3.90-5.20 [facility] Comment on above: Order Comment: Speci men Type: BLOOD SPECIMEN Ordering Facility: [facility] Address: [address] [place] [address] Performed By: #### 2 4321-2, 96929-9, #### [facility] CLIA [id number] 1 [place] [address] [place] WBC (Bld) [#/Vol] 7.45 10*3/uL Normal 3.70-11.00 [facility] Comment on above: Order Comment: Speci men Type: BLOOD SPECIMEN Ordering Facility: [facility] Address: [address] [place] [address] Performed By: #### 2 4321-2, 28722-5, #### [facility] CLIA [id number] [address] [place] CONSULTon 06-11-2024 CONSULT HNO ID: [id number] Author: JENNY WALLACE MD Service: Neurology General [...] cannot ambulate. Pre-admission Pre-morbid mRS: Premorbid Modified Ellis Score: 0 - No symptoms at all [...] [facility] CONSULT HNO ID: [id number] Author: TOÑO MANZO MD Service: Urology Author [...] discussed with the Patient or Patient's Authorized Lumpia Wrapper Maker. As applicable, any other physician, advance practice provider, medical student, or other health professional student that will be observing or involved in the sensitive examination for educational or training purposes was discussed with the Patient or Authorized [place] Wrapper Maker. The Patient or Authorized [place] Wrapper Maker has agreed to proceed with the sensitive [...] lesion. Consider follow-up renal CT/MR for characterization. Veterans Employment Representative: DEVEN Transcribe D (more content not included)... Normal [facility] CONSULT PROGon 06-11-2024 CONSULT PROG HNO ID: [id number] Author: CARL PERSAUD RPh Service: Pharmacy Author [...] care of this patient. Carl Persaud RPh [facility] CONSULT PROG HNO ID: [id number] Author: CARL PERSAUD RPh Service: Pharmacy Author [...] [facility] CT ABD/PEL W IVCONon 06-11- 024 CT ABD/PEL W IVCON * * *Final Report* * * DATE OF EXAM: Jun 11 2024 3:07AM [facility] 0530 - CT ABD/PEL W [...] to bilateral greater trochanters, similar to prior. Story Reader (topogram) images: No additional findings. IMPRESSION: 1. Mild bilateral hydroureteronephrosis to the pelvic brim without evidence of ureterolithiasis. 2. Indeterminate left renal lesion. Consider follow-up renal CT/MR for characterization. Veterans Employment Representative: DEVEN Transcribe Date/Time: Jun 11 2024 3:09A Dictated by : RAF AYALA MD This examination was interpreted and the report reviewed and electronically signed by: RAF AYALA MD on Jun 11 2024 3:40AM EST [id number] Normal [facility] CT BRAIN WO IVCONon 06-11-20 CT BRAIN WO IVCON * * *Final Report* * * DATE OF EXAM: Jun 11 2024 3:05AM [facility] 0504 - CT BRAIN WO [...] changes and small remote right occipital infarct. Veterans Employment Representative: DEVEN Transcribe Date/Time: Jun 11 2024 3:05A [...] Center Date of service: 06/11/2024 11:20:46 [facility] Ordering physician: DON EDWARDS Indication: TIA Technologist: Dinora Fields [facility] Interpreting physician: Nando Costa MD PATIENT: Name: [...] * * Final * * * CC [facility] : [id number] Normal [facility] ED NOTEon 06-11-2024 ED NOTE HNO ID: [id number] Author: GISSELL CARRINGTON, RN Service: Emergency Medicine Author Type: Registered Nurse Type: ED Notes Filed: 06/11/2024 05:58 Note Text: Gave report to assigned RN on 2099. Assigned RN is ready to receive patient at this time. Normal [facility] ED NOTE HNO ID: [id number] Author: GISSELL CARRINGTON RN Service: Emergency Medicine [...] Rhina mason Type: BLOOD SPECIMEN Ordering Facility: [facility] Address: [address] [place] [address] Performed By: #### 2 4321-2, 60921-9, #### [facility] CLIA [id number] [address] OF [facility] HIGH SENSITIVITY TROPONIN T (THIRD) 3 HRS AFTER INITIALon 06-11-2024 Troponin T.cardiac High sensitivity method [Mass/Vol] 14 ng/L High <12 [facility] Comment on above: Order Comment: Rhina mason Type: BLOOD SPECIMEN Ordering Facility: [facility] Address: [address] [place] [address] Performed By: #### 2 4321-2, 38780-0, #### [facility] CLIA [id number] [address] [place] HISTORY PHYSICALon HISTORY PHYSICAL HNO ID: [id number] Author: DON EDWARDS DO Service: Hospital Medicine Author Type: Physician Type: H&P Filed: 06/11/2024 14:14 Note Text: DEPARTMENT OF HOSPITAL MEDICINE HISTORY AND PHYSICAL EXAM SERVICE DATE: 06/11/2024 SERVICE TIME: 10:25 AM Primary Care Physician: Jared Evans MD, MD NIGHT AND WEEKEND COVERAGE: [employer] COVERAGE: From 7am - 7pm, please call [phone] After 7pm, please call cross cover pager #[phone] Subjective CHIEF COMPLAINT: dizziness with vomiting, slurred [...] Drains, and Airways Line Duration Peripheral 06/11/24 [facility] Left Antecubital 20 Gauge <1 day Drain Duration External Collection Device 06/11/24 0250 [facility] <1 day Reviewed lines and needs to be continued: REASONS: Telemetry DATA: Diagnostic tests reviewed for today's visit: Most recent lab (more content not included)... Normal [facility] MRA BRAIN WO IVCONon 024 MRA BRAIN WO IVCON * * *Final Report* * * DATE OF EXAM: Jun 11 2024 3:52PM [facility] 0272 - MRA BRAIN WO IVCON / PROCEDURE REASON: Neuro deficit, acute, stroke suspected * * * * Physician Interpretation * * * * EXAMINATION: MRI BRAIN WO IVCON, MRA BRAIN WO IVCON, MRA CAROTID WO IVCON CLINICAL HISTORY: Neuro deficit, acute, stroke suspected TECHNIQUE: Routine noncontrast MRI brain protocol including diffusion images. Intracranial and carotid 3D hdfb-ur-xajelo MRA. 3D maximum intensity projection images were [...] Patency: Bilateral Dominance: Left INTRACRANIAL MRA: [place] is patent without significant stenosis. 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 IMPRESSION: Motion degraded study. 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 No hemorrhagic transformation or significant mass effect. Unremarkable carotid MRA. 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 Veterans Employment Representative: PSCB Transcribe Date/Time: Jun 11 2024 3:54P Dictated by : ESTHER MCKEON MD This examination was interpreted and the report reviewed and electronically signed by: ESTHER MCKEON MD on Jun 11 2024 4:13PM EST [id number] Normal [facility] MRA CAROTID WO IVCONon 06-11 MRA CAROTID WO IVCON * * *Final Report* * * DATE OF EXAM: Jun 11 2024 3:52PM [facility] 0275 - MRA CAROTID WO IVCON / PROCEDURE REASON: Neuro deficit, acute, stroke suspected * * * * Physician Interpretation * * * * EXAMINATION: MRI BRAIN WO IVCON, MRA BRAIN WO IVCON, MRA CAROTID WO IVCON CLINICAL HISTORY: Neuro deficit, acute, stroke suspected TECHNIQUE: Routine noncontrast MRI brain protocol including diffusion images. Intracranial and carotid 3D snic-wv-odxjng MRA. 3D maximum intensity projection images were [...] Patency: Bilateral Dominance: Left INTRACRANIAL MRA: [place] is patent without significant stenosis. 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 IMPRESSION: Motion degraded study. 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 No hemorrhagic transformation or significant mass effect. Unremarkable carotid MRA. 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 Veterans Employment Representative: DEVEN Transcribe Date/Time: Jun 11 2024 3:54P Dictated by : ESTHER MCKEON MD This examination was interpreted and the report reviewed and electronically signed by: ESTHER MCKEON MD on Jun 11 2024 4:13PM EST [id number] Normal [facility] MRI BRAIN WO IVCONon 024 MRI BRAIN WO IVCON * * *Final Report* * * DATE OF EXAM: Jun 11 2024 3:52PM [facility] 0294 - MRI BRAIN WO IVCON / PROCEDURE REASON: stroke * * * * Physician Interpretation * * * * EXAMINATION: MRI BRAIN WO IVCON, MRA BRAIN WO IVCON, MRA CAROTID WO IVCON CLINICAL HISTORY: Neuro deficit, acute, stroke suspected TECHNIQUE: Routine noncontrast MRI brain protocol including diffusion images. Intracranial and carotid 3D xmsi-xo-orakdr MRA. 3D maximum intensity projection images were [...] Patency: Bilateral Dominance: Left INTRACRANIAL MRA: [place] is patent without significant stenosis. 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 IMPRESSION: Motion degraded study. 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 No hemorrhagic transformation or significant mass effect. Unremarkable carotid MRA. 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 Veterans Employment Representative: DEVEN Transcribe Date/Time: Jun 11 2024 3:54P [...] Speci men Type: BLOOD SPECIMEN Ordering Facility: [facility] Address: [address] [place] [address] Result Comment: Mayra min K Antagonist (VKA) Therapeutic Range: INR 2 to 3 (Target INR of 2.5) Note: For patients treated with VKA drugs, such as warfarin, the [employer] 2012 Guideline recommends [...] Chest 2012, 141:7S-47S Daren RA, et al. [facility] 2017, 70: 252-289 Performed By: #### 2 4321-2, 16533-3, #### [facility] CLIA [id number] [address] OF [facility] PT Coag (PPP) [Time] 12.6 s Normal 9.7-13.0 [facility] Comment on above: Order Comment: Specrobson men Type: BLOOD SPECIMEN Ordering Facility: [facility] Address: [address] [place] [id number] Performed By: #### 2 4321-2, 91755-0, 21755-8 #### [facility] [id number] [address] THERAPY NTon 06-11-2024 THERAPY NT HNO ID: [id number] Author: BASILIA MAGALLANES, CCC-RACK PUSHER Service: Speech/Swallow Author Type: Speech Language Pathologist Type: Therapy (PT/OT/Speech/Resp) Filed: 06/11/2024 09:44 Note Text: Speech Therapy Clinical Swallow Evaluation SERVICE DATE: 06/11/2024 SERVICE TIME: 915 to 930 ROOM: [place] [address] IMPRESSION: Functional oropharyngeal phases of swallowing: without [...] Skilled Need Interventions Provided: Clinical Swallow Evaluation (47276) $ Clinical Swallow Evaluation (95650) Billed Units: 1 unit Training and Education [...] for this therapy evaluation/treatment. SIGNATURE: Basilia Magallanes CCC-RACK PUSHER PATIENT NAME: Mel Castillo DATE: June 11, 2024 TIME: 9:39 AM Normal [facility] THERAPY NT HNO ID: [id number] Author: MEHREEN MANCERA, PT Service: Physical Therapy Author Type: Physical Therapist Type: Therapy (PT/OT/Speech/Resp) Filed: 06/11/2024 09:27 Note Text: Physical Therapy Evaluation Summary SERVICE DATE: 06/11/2024 SERVICE TIME: 804 to 841 ROOM: [id number] PT 6 Clicks Score: 18 DISCHARGE RECOMMENDATIONS [...] and signs-other TREATMENT INTERVENTIONS Evaluation, Canalith Repositioning (80431) Skilled Treatment Time (minutes): 37 $ Evaluation-Moderate (23442) Billed Units: 1 unit $ Canalith Repositioning (71827) Billed Units: 1 unit Repositioning maneuver for [...] Positional Testing: Eris-Hallpike, Left, Horizontal Canals, Left Eris-Hallpike, Left: Note: [...] Comment: Speci men Type: URINE SPECIMENOrdering Facility: [facility] Address: [address] [place] [address] Performed By: #### 2 4356-8 ####[facility] [id number] [place] [address] [place] Clarity (Unsp spec) Clear Normal Clear [facility] Comment on above: Order Comment: Speci men Type: URINE SPECIMENOrdering Facility: [facility] Address: [address] [place] [address] Performed By: #### 2 4356-8 ####[facility] [id number] [address] [place] Color (U) Light Yellow Normal yellow [facility] Comment on above: Order Comment: Speci men Type: URINE SPECIMENOrdering Facility: [facility] Address: [facility] [place] [address] Performed By: #### 2 4356-8 ####[facility] LABORATORYCLIA [id number] [address] [place] Glucose Test strip (U) [Mass/Vol] Negative Normal Trace, Negative [facility] Comment on above: Order Comment: Speci men Type: URINE SPECIMENOrdering Facility: [facility] Address: [address] [place] [address] Performed By: #### 2 4356-8 ####[facility] LABORATORYCLIA [id number] [address] [place] Hemoglobin Ql (U) Trace Normal Negative, Trace [facility] Comment on above: Order Comment: Speci men Type: URINE SPECIMENOrdering Facility: [facility] Address: [address] [place] [address] Performed By: #### 2 4356-8 ####[facility] LABORATORYCLIA [id number] [address] [place] Ketones Ql (U) Negative Normal Negative, Trace [facility] Comment on above: Order Comment: Speci men Type: URINE SPECIMENOrdering Facility: [facility] Address: [address] [place] [address] Performed By: #### 2 4356-8 ####[facility] LABORATORYCLIA [id number] [address] Leukocyte esterase Test strip Ql (U) Negative Normal Negative, 25 Jose Luis/uL [facility] Comment on above: Order Comment: Speci men Type: URINE SPECIMENOrdering Facility: [facility] Address: [address] [place] [address] Performed By: #### 2 4356-8 ####[facility] LABORATORYCLIA [id number] [place] [address] [place] Nitrite Ql (U) Negative Normal Negative [facility] Comment on above: Order Comment: Speci men Type: URINE SPECIMENOrdering Facility: [facility] Address: [address] [place] [address] Performed By: #### 2 4356-8 ####[facility] LABORATORYCLIA [id number] [place] [address] [place] pH (U) [pH] High 5.0-8.0 [facility] Comment on above: Order Comment: Speci men Type: URINE SPECIMENOrdering Facility: [facility] Address: [address] [place] [address] Performed By: #### 2 4356-8 ####[facility] LABORATORYCLIA [id number] [address] Protein (U) [Mass/Vol] 1+ Abnormal Trace , Negative [facility] Comment on above: Order Comment: Speci men Type: URINE SPECIMENOrdering Facility: [facility] Address: [address] [place] [address] Performed By: #### 2 4356-8 ####[facility] LABORATORYCLIA [id number] [place] [address] [place] RBC LM.HPF (Urine sed) [#/Area] 6-10 /HPF Abnormal 0-3 /HPF [facility] Comment on above: Order Comment: Speci men Type: URINE SPECIMENOrdering Facility: [facility] Address: [address] [place] [address] Performed By: #### 2 4356-8 ####[facility] LABORATORYCLIA [id number] [address] STATES [facility] Specific gravity (U) [Rel density] 1.039 High 1.005-1.030 [facility] Comment on above: Order Comment: Speci men Type: URINE SPECIMENOrdering Facility: [facility] Address: [address] [place] [address] Performed By: #### 2 4356-8 ####[facility] LABORATORYCLIA [id number] [address] Urobilinogen Ql (U) Normal Normal Normal [facility] Comment on above: Order Comment: Speci men Type: URINE SPECIMENOrdering Facility: [facility] Address: [address] [place] [address] Performed By: #### 2 4356-8 ####[facility] LABORATORYCLIA [id number] [address] WBC LM.HPF (Urine sed) [#/Area] 0-5 /HPF Normal 0-5 /HPF [facility] Comment on above: Order Comment: Speci men Type: URINE SPECIMENOrdering Facility: [facility] Address: [address] [place] [address] Performed By: #### 2 4356-8 ####[facility] LABORATORYCLIA [id number] [address] [place] aPTT PPPon 06-11-2024 aPTT Coag (PPP) [Time] 28.2 s Normal 23.0-32.4 [facility] Comment on above: Order Comment: Speci men Type: BLOOD SPECIMENOrdering Facility: [facility] Address: [address] [place] [address] Performed By: #### 1 4979-9 ####[facility] LABORATORYCLIA [id number] [address] [place] aPTT Coag (PPP) [Time] 28.9 s Normal 23.0-32.4 [facility] Comment on above: Order Comment: Speci men Type: BLOOD SPECIMEN Ordering Facility: [facility] Address: [address] [place] [address] Performed By: #### 2 4321-2, 52465-3, 00130-4 #### [facility] CLIA [id number] [address] CBC W Auto Differential pane l (Bld)on 06-10-2024 Basophils (Bld) [#/Vol] 0.04 10*3/uL Normal <0.11 [facility] Comment on above: Order Comment: Speci men Type: BLOOD SPECIMEN Ordering Facility: [facility] Address: [address] [place] [address] Performed By: #### 2 4321-2, 48130-1, #### [facility] CLIA [id number] [address] [place] Basophils/100 WBC (Bld) 0.7 % Normal [facility] Comment on above: Order Comment: Speci men Type: BLOOD SPECIMEN Ordering Facility: [facility] Address: [address] [place] [address] Performed By: #### 2 4321-2, 04363-8, #### [facility] CLIA [id number] [address] [place] Differential cell count method Nom (Bld) Auto Normal [facility] Comment on above: Order Comment: Speci men Type: BLOOD SPECIMEN Ordering Facility: [facility] Address: [address] [place] [address] Performed By: #### 2 1-2, 32147-4, #### [facility] CLIA [id number] [address] [place] Eosinophils (Bld) [#/Vol] 10*3/uL Normal <0.46 [facility] Comment on above: Order Comment: Speci men Type: BLOOD SPECIMEN Ordering Facility: [facility] Address: [address] [place] [address] Performed By: #### 2 4321-2, 62547-5, #### [facility] CLIA [id number] [address] [place] Eosinophils/100 WBC (Bld) 0.2 % Normal [facility] Comment on above: Order Comment: Speci men Type: BLOOD SPECIMEN Ordering Facility: [facility] Address: [address] [place], [place] [address] Performed By: #### 2 4321-2, 13410-5, #### [facility] CLIA [id number] [address] [place] Erythrocyte distribution width (RBC) [Ratio] 15.6 % High 11.5-15.0 [facility] Comment on above: Order Comment: Speci men Type: BLOOD SPECIMEN Ordering Facility: [facility] Address: [address] [place] [address] Performed By: #### 2 4321-2, 01732-7, #### [facility] CLIA [id number] [address] [place] Hematocrit (Bld) [Volume fraction] 37.5 % Normal 36.0-46.0 [facility] Comment on above: Order Comment: Speci men Type: BLOOD SPECIMEN Ordering Facility: [facility] Address: [address] [place] [address] Performed By: #### 2 4320-2, 60005-4, #### [facility] CLIA [id number] [address] [place] Hemoglobin (Bld) [Mass/Vol] 11.4 g/dL Low 11.5-15.5 [facility] Comment on above: Order Comment: Speci men Type: BLOOD SPECIMEN Ordering Facility: [facility] Address: [address] [place] [address] Performed By: #### 2 1-2, 83961-3, #### [facility] CLIA [id number] [address] [place] Immature granulocytes (Bld) [#/Vol] 10*3/uL Normal <0.10 [facility] Comment on above: Order Comment: Speci men Type: BLOOD SPECIMEN Ordering Facility: [facility] Address: [address] [place] [address] Performed By: #### 2 4321-2, 02827-1, #### [facility] CLIA [id number] [address] [place] Immature granulocytes/100 WBC (Bld) 0.4 % Normal [facility] Comment on above: Order Comment: Speci men Type: BLOOD SPECIMEN Ordering Facility: [facility] Address: [address] [place] [address] Performed By: #### 2 4321-2, 76967-6, #### [facility] CLIA [id number] [address] OF [facility] Lymphocytes (Bld) [#/Vol] 0.61 10*3/uL Low 1.00-4.00 [facility] Comment on above: Order Comment: Speci men Type: BLOOD SPECIMEN Ordering Facility: [facility] Address: [address] [place] [address] Performed By: #### 2 4321-2, 03344-8, #### [facility] CLIA [id number] [address] Lymphocytes/100 WBC (Bld) 10.8 % Normal [facility] Comment on above: Order Comment: Speci men Type: BLOOD SPECIMEN Ordering Facility: [facility] Address: [address] [place] [address] Performed By: #### 2 4321-2, 55958-7, #### [facility] CLIA [id number] [address] [place] MCH (RBC) [Entitic mass] 26.2 pg Normal 26.0-34.0 [facility] Comment on above: Order Comment: Speci men Type: BLOOD SPECIMEN Ordering Facility: [facility] Address: [address] [place] [address] Performed By: #### 2 4321-2, 88092-2, #### [facility] CLIA [id number] [address] [place] MCHC (RBC) [Mass/Vol] 30.4 g/dL Low 30.5-36.0 [facility] Comment on above: Order Comment: Speci men Type: BLOOD SPECIMEN Ordering Facility: [facility] Address: [address] [place] [address] Performed By: #### 2 1-2, 13666-0, #### [facility] CLIA [id number] [address] [place] MCV (RBC) [Entitic vol] 86.2 fL Normal 80.0-100.0 [facility] Comment on above: Order Comment: Speci men Type: BLOOD SPECIMEN Ordering Facility: [facility] Address: [address] [place] [address] Performed By: #### 2 1-2, 14892-1, #### [facility] CLIA [id number] [address] [place] [address] [place] Monocytes (Bld) [#/Vol] 0.21 10*3/uL Normal <0.87 [facility] Comment on above: Order Comment: Speci men Type: BLOOD SPECIMEN Ordering Facility: [facility] Address: [address] [place] [address] Performed By: #### 2 4320-2, 27426-3, #### [facility] CLIA [id number] [address] [place] Monocytes/100 WBC (Bld) 3.7 % Normal [facility] Comment on above: Order Comment: Speci men Type: BLOOD SPECIMEN Ordering Facility: [facility] Address: [address] [place] [address] Performed By: #### 2 1-2, 42854-8, #### [facility] CLIA [id number] [address] [place] [address] [place] Neutrophils (Bld) [#/Vol] 4.78 10*3/uL Normal 1.45-7.50 [facility] Comment on above: Order Comment: Speci men Type: BLOOD SPECIMEN Ordering Facility: [facility] Address: [address] [place] [address] Performed By: #### 2 4321-2, 13393-5, #### [facility] CLIA [id number] [address] Neutrophils/100 WBC (Bld) 84.2 % Normal [facility] Comment on above: Order Comment: Speci men Type: BLOOD SPECIMEN Ordering Facility: [facility] Address: [address] [place] [address] Performed By: #### 2 4321-2, 28375-7, #### [facility] CLIA [id number] [address] [place] Nucleated RBC (Bld) [#/Vol] 10*3/uL Normal <0.01 [facility] Comment on above: Order Comment: Speci men Type: BLOOD SPECIMEN Ordering Facility: [facility] Address: [address] [place] [address] Performed By: #### 2 4320-2, 48629-2, #### [facility] CLIA [id number] [address] STATES [facility] Nucleated RBC/100 WBC (Bld) [Ratio] 0.0 /100 WBC Normal [facility] Comment on above: Order Comment: Speci men Type: BLOOD SPECIMEN Ordering Facility: [facility] Address: [address] [place] [address] Performed By: #### 2 1-2, 48666-3, #### [facility] CLIA [id number] [address] [place] Platelet mean volume (Bld) [Entitic vol] 9.4 fL Normal 9.0-12.7 [facility] Comment on above: Order Comment: Speci men Type: BLOOD SPECIMEN Ordering Facility: [facility] Address: [address] [place] [address] Performed By: #### 2 4321-2, 13945-0, #### [facility] CLIA [id number] [address] [place] Platelets (Bld) [#/Vol] 330 10*3/uL Normal 150-400 [facility] Comment on above: Order Comment: Speci men Type: BLOOD SPECIMEN Ordering Facility: [facility] Address: [address] [place] [address] Performed By: #### 2 4321-2, 03071-0, 34993-2 #### [facility] CLIA [id number] [address] OF [facility] RBC (Bld) [#/Vol] 4.35 10*6/uL Normal 3.90-5.20 [facility] Comment on above: Order Comment: Speci men Type: BLOOD SPECIMEN Ordering Facility: [facility] Address: [address] [place] [address] Performed By: #### 2 4321-2, 97425-7, 61714-4 #### [facility] CLIA [id number] [address] WBC (Bld) [#/Vol] 5.67 10*3/uL Normal 3.70-11.00 [facility] Comment on above: Order Comment: Speci men Type: BLOOD SPECIMEN Ordering Facility: [facility] Address: [address] [place] [address] Performed By: #### 2 4321-2, 53554-4, 82073-5 #### [facility] CLIA [id number] [address] OF [facility] Comprehensive metabolic 2000 panelon 06-10-2024 Albumin [Mass/Vol] 4.2 g/dL Normal 3.9-4.9 [facility] Comment on above: Order Comment: Speci men Type: BLOOD SPECIMENOrdering Facility: [facility] Address: [address] [place] [address] Performed By: #### 3 016-3, 88654-3, 3024-7, 62251-9 ####[facility]ORATORYCLIA [id number] [address] ALP [Catalytic activity/Vol] 99 U/L Normal 34-123 [facility] Comment on above: Order Comment: Speci men Type: BLOOD SPECIMENOrdering Facility: [facility] Address: [address] [place] [address] Performed By: #### 3 016-3, 42066-9, 7, 83282-6 ####[facility]ORATORYCLIA [id number] [place] [address] [place] [facility] ALT With P-5'-P [Catalytic activity/Vol] 8 U/L Normal 7-38 [facility] Comment on above: Order Comment: Speci men Type: BLOOD SPECIMENOrdering Facility: [facility] Address: [address] [place] [address] Performed By: #### 3 016-3, 18643-3, 7, 88631-4 ####[facility]ORATORYCLIA [id number] [address] STATES OF [facility] Anion gap [Moles/Vol] 12 mmol/L Normal 8-15 [facility] Comment on above: Order Comment: Speci men Type: BLOOD SPECIMENOrdering Facility: [facility] Address: [address] [place] [address] Performed By: #### 3 016-3, 27440-5, 7, ####[facility]ORATORYCLIA [id number] [address] [place] AST With P-5'-P [Catalytic activity/Vol] 12 U/L Low 13-35 [facility] Comment on above: Order Comment: Speci men Type: BLOOD SPECIMENOrdering Facility: [facility] Address: [address] [place] [address] Performed By: #### 3 016-3, 46372-7, 7, 73605-5 ####[facility]ORATORYCLIA [id number] [address] [place] Bilirubin [Mass/Vol] 0.4 mg/dL Normal 0.2-1.3 [facility] Comment on above: Order Comment: Speci men Type: BLOOD SPECIMENOrdering Facility: [facility] Address: [address] [place] [address] Performed By: #### 3 016-3, 97350-4, 7, 77836-6 ####[facility]ORATORYCLIA [id number] [place] [address] [place] Calcium [Mass/Vol] 9.5 mg/dL Normal 8.5-10.2 [facility] Comment on above: Order Comment: Speci men Type: BLOOD SPECIMENOrdering Facility: [facility] Address: [address] [place] [address] Performed By: #### 3 016-3, 14196-9, 7, 54086-6 ####[facility]ORATORYCLIA [id number] [place] [address] [place] Chloride [Moles/Vol] 101 mmol/L Normal 98-107 [facility] Comment on above: Order Comment: Speci men Type: BLOOD SPECIMENOrdering Facility: [facility] Address: [address] [place] [address] Performed By: #### 3 016-3, 99162-5, 7, 35927-8 ####[facility]ORATORYCLIA [id number] [place] [address] [place] CO2 [Moles/Vol] 23 mmol/L Normal 22-30 [facility] Comment on above: Order Comment: Speci men Type: BLOOD SPECIMENOrdering Facility: [facility] Address: [address] [place] [address] Performed By: #### 3 016-3, 95707-5, 7, 36772-6 ####[facility]ATORYCLIA [id number] [place] [address] [place] Creatinine [Mass/Vol] 0.87 mg/dL Normal 0.58-0.96 [facility] Comment on above: Order Comment: Speci men Type: BLOOD SPECIMENOrdering Facility: [facility] Address: [address] [place] [address] Performed By: #### 3 016-3, 54985-3, 3024-7, 71812-3 ####[facility]ATORYCLIA [id number] [address] Creatinine and Glomerular filtration rate.predicted panel (S/P/Bld) 66 mL/min/1.73m??? Normal >=60 [facility] Comment on above: Order Comment: Rhina mason Type: BLOOD SPECIMENOrdering Facility: [facility] Address: [address] [place] [address] Result Comment: Isa mated Glomerular Filtration Rate [...] actual GFR. Performed By: #### 3 016-3, 77018-9, 3024-7, 88994-9 ####[facility] LABORATORYIA [id number] [address] [place] Glucose [Mass/Vol] 157 mg/dL High 74-99 [facility] Comment on above: Order Comment: Rhina mason Type: BLOOD SPECIMENOrdering Facility: [facility] Address: [address] [place] [address] Result Comment: The [place] [employer] (ADA) provides guidance for cutoff [...] Standards of Medical Care in Diabetes 2016, [place] [employer]. Diabetes Care. 2016.39(Suppl 1). Performed By: #### 3 016-3, 34972-6, 3024-, 51702-1 ####[facility] LABORATORYCLIA [id number] [place] [address] [place] Potassium [Moles/Vol] 4.3 mmol/L Normal 3.7-5.1 [facility] Comment on above: Order Comment: Speci men Type: BLOOD SPECIMENOrdering Facility: [facility] Address: [address] [place] [address] Performed By: #### 3 016-3, 81502-4, 3024-01, 45176-1 ####[facility] LABORATORYCLIA [id number] [place] [id number] [place] Protein [Mass/Vol] 7.1 g/dL Normal 6.3-8.0 [facility] Comment on above: Order Comment: Speci men Type: BLOOD SPECIMENOrdering Facility: [facility] Address: [address] [place] [address] Performed By: #### 3 016-3, 71247-8, 3024-01, 60912-8 ####[facility] SERVICESCLIA [id number] [place] [address] [place] Sodium [Moles/Vol] 136 mmol/L Normal 136-144 [facility] Comment on above: Order Comment: Speci men Type: BLOOD SPECIMENOrdering Facility: [facility] Address: [address] [place] [address] Performed By: #### 3 016-3, 70109-3, 3024-01, 10947-7 ####[facility]ATORYCLIA [id number] [place] [id number] [place] Urea nitrogen [Mass/Vol] 14 mg/dL Normal 7-21 [facility] Comment on above: Order Comment: Speci men Type: BLOOD SPECIMENOrdering Facility: [facility] Address: [address] [place] [address] Performed By: #### 3 016-3, 76298-7, 7, 49410-7 ####[facility]ATORYCLIA [id number] [place] [id number] [place] ECG COMPLETEon 11-24-2024 ECG COMPLETE Ventricular Rate : 6 4 BPM QRS Duration : 90 ms Q-T Interval : 424 ms QTC Calculation(Bazett) : 437 ms Calculated R [place] : 56 degrees Calculated T [place] : 20 degrees ATRIAL FIBRILLATION ABNORMAL ECG NO PREVIOUS ECGS AVAILABLE Confirmed by SAKINA MELLO MD ([id number]) on 12/07/2024 10:44:28 PM NAME : MEL GUADARRAMA PID : [id number] : 1940 Gender : Female Race : ORD : [id number] Procedure Date : Jun 10 2024 23:35:14 Edit Date : Dec 07 2024 22:44:32 Diagnosis: ATRIAL FIBRILLATION ABNORMAL ECG NO PREVIOUS ECGS AVAILABLE Confirmed by SAKINA MELLO MD ([id number]) on 12/07/2024 10:44:28 PM Test Reason : Chest Pain Location : 4 : [facility] EM Overread By : SAKINA MELLO MD Edited By : SAKINA MELLO MD Referred By : , Acquired by : REGAN RODRIGES [facility] ED NOTEon 06-10-2024 ED NOTE HNO ID: [id number] Author: DAMARIS HERNANDEZ RN Service: ? Author Type: Registered Nurse Type: ED Notes Filed: 06/10/2024 23:06 Note Text: Bed: 36-ED Expected date: Expected time: Means of arrival: Comments: RAMESH [facility] ED PROV NOTEon 06-10-2024 ED PROV NOTE HNO ID: [id number] Author: THOMAS SERNA MD Service: Emergency Medicine [...] head to the left or right the Deale-Hallpike. No nystagmus noted vertical or lateral [facility] [...] [facility] ED PROV NOTE HNO ID: [id number] Author: THOMAS SERNA MD Service: Emergency Medicine [...] Comment: Rhina mason Type: BLOOD SPECIMENOrdering Facility: [facility] Address: [address] [place] [address] Performed By: #### L [id number] ####[facility]ATORYCLIA [id number] [address] [place] HbA1c (Bld)on 06-10-2024 Average glucose Estimated from glycated hemoglobin (Bld) [Mass/Vol] 120 mg/dL Normal [facility] Comment on above: Order Comment: Rhina mason Type: BLOOD SPECIMEN Ordering Facility: [facility] Address: [address] [place] [address] Result Comment: eAG: (Estimated average glucose) is a calculated value from HgbA1c and is union contract representative of the average blood glucose level in the last 2-3 month period. Performed By: #### 2 4321-2, 92331-1, 65260-6 #### [facility] CLIA [id number] [address] [place] HbA1c (Bld) [Mass fraction] 5.8 % High 4.3-5.6 [facility] Comment on above: Order Comment: Rhina mason Type: BLOOD SPECIMEN [facility]ing Facility: [facility] Address: [address] [place] [address] Result Comment: [place] [place] [employer] guidelines indicate that patients with HgbA1c in the range 5.7-6.4% are at increased risk for development of diabetes, and intervention by lifestyle modification may be beneficial. HgbA1c greater or equal to 6.5% is considered diagnostic of diabetes. Performed By: #### 2 4321-2, 96022-4, 47954-7 #### [facility] CLIA [id number] [address] Lipid 1996 panelon 4 Cholesterol [Mass/Vol] 227 mg/dL High <200 [facility] Comment on above: Order Comment: Speci [facility] Type: BLOOD SPECIMENOrdering Facility: [facility] Address: [address] [place] [address] Result Comment: <200 mg/dL, Desirable 200-239 mg/dL, Borderline high >239 mg/dL, High Performed By: #### 3 016-3, 62911-8, 3023-7, 89179-0 ####[facility] [id number] [address] Cholesterol in HDL [Mass/Vol] 78 mg/dL Normal >39 [facility] Comment on above: Order Comment: Speci [facility] Type: BLOOD SPECIMENOrdering Facility: [facility] Address: [address] [place] [address] Result Comment: 40-5 9 mg/dL, Acceptable >59 mg/dL, High: Negative risk factor for coronary heart disease <40 mg/dL, Low: Positive risk factor for coronary heart disease Performed By: #### 3 016-3, 76422-4, 3023-7, 97982-0 ####[facility] [id number] [address] OF [place] Cholesterol in LDL [Mass/Vol] 139 mg/dL High <100 [facility] Comment on above: Order Comment: [facility] Type: BLOOD SPECIMENOrdering Facility: [facility] Address: [address] [place] [address] Result Comment: <100 mg/dL, Optimal 100-129 mg/dL, Near optimal/above optimal 130-159 mg/dL, Borderline high 160-189 mg/dL, High >189 mg/dL, Very high Secondary prevention optimal LDL Cholesterol levels are recommended to be < 70 mg/dL Performed By: #### 3 016-3, 06140-6, 3024-7, 58620-4 ####[facility] [id number] [address] Cholesterol in LDL/Cholesterol in HDL [Mass ratio] 1.78 {ratio} Normal <2.54 [facility] Comment on above: Order Comment: Speci men Type: BLOOD SPECIMENOrdering Facility: [facility] Address: [address] [place] [address] Result Comment: Refe rence: 1. National Cholesterol Education Program ATP III Guideline At-A-Glance Quick Desk Reference: National Heart, Lung, and Blood [place]. National Institutes of Health. 2001: NIH Publication No. 01-3305. 2. An International Atherosclerosis Society position paper: global recommendations for the management of dyslipidemia: executive summary, Atherosclerosis. 2014: 232(2):410-413. Performed By: #### 3 016-3, 73723-8, 7, 24317-1 ####[facility] [id number] [address] Cholesterol in VLDL [Mass/Vol] 10 mg/dL Normal <30 [facility] Comment on above: Order Comment: Speci men Type: BLOOD SPECIMENOrdering Facility: [facility] Address: [address] [place] [address] Performed By: #### 3 016-3, 24065-7, 7, 97989-4 ####[facility] [id number] [address] OF [facility] Cholesterol non HDL [Mass/Vol] 149 mg/dL High <130 [facility] Comment on above: Order Comment: Speci men Type: BLOOD SPECIMENOrdering Facility: [facility] Address: [address] [place] [address] Result Comment: <130 mg/dL, Optimal 130-159 mg/dL, Near optimal/above optimal 160-189 mg/dL, Borderline high 190-219 mg/dL, High >219 mg/dL, Very high Secondary prevention optimal non HDL Cholesterol levels are recommended to be <100 mg/dL Performed By: #### 3 016-3, 71597-9, 3024-7, 54877-1 ####[facility]IA [id number] [place] [address] [facility] Cholesterol.total/Pastora sterol in HDL [Mass ratio] 2.91 {ratio} Normal <5.10 [facility] Comment on above: Order Comment: Speci men Type: BLOOD SPECIMENOrdering Facility: [facility] Address: [address] [place] [address] Performed By: #### 3 016-3, 86002-9, 3024-01, ####[facility] [id number] [address] [place] FASTING TIME Normal [facility] Comment on above: Order Comment: Speci men Type: BLOOD SPECIMENOrdering Facility: [facility] Address: [address] [place] [address] Result Comment: Unkn own Performed By: #### 3 016-3, 64678-5, 3024-01, ####[facility] [id number] [address] [place] Triglyceride [Mass/Vol] 49 mg/dL Normal <150 [facility] Comment on above: Order Comment: Speci men Type: BLOOD SPECIMENOrdering Facility: [facility] Address: [address] [place] [address] Result Comment: <150 mg/dL, Normal 150-199 mg/dL, Borderline high 200-499 mg/dL, High >499 mg/dL, Very high Performed By: #### 3 016-3, 20027-4, 3024-01, 65820-8 ####[facility] [id number] [address] [place] PT panel Coag (PPP)on 2023 INR Coag (PPP) [Relative time] 1.3 {INR} Normal 0.9-1.3 [facility] Comment on above: Order Comment: Speci men Type: BLOOD SPECIMENOrdering Facility: [facility] Address: [address] [place] [address] Result Comment: Mayra min K Antagonist (VKA) Therapeutic Range: INR 2 to 3 (Target INR of 2.5) Note: For patients treated with VKA drugs, such as warfarin, the [place] [employer] 2012 Guideline recommends [...] GH, et al. Chest 2012, 141:7S-47S Daren HOYT et al. [facility] 2017, 70: 252-289 Performed By: #### 3 4528-0 ####[facility]ORYCLIA [id number] [place] [address] [place] PT Coag (PPP) [Time] 13.2 s High 9.7-13.0 [facility] Comment on above: Order Comment: Rhina mason Type: BLOOD SPECIMENOrdering Facility: [facility] Address: [address] [place] [address] Performed By: #### 3 4528-0 ####[facility]CL[facility] [id number] [address] [place] T4 Free SerPl-mCncon 024 Free T4 [Mass/Vol] 1.3 ng/dL Normal 0.9-1.7 [facility] Comment on above: Order Comment: Rhina mason Type: BLOOD SPECIMENOrdering Facility: [facility] Address: [address] [place] [address] Performed By: #### 3 016-3, 86107-5, 3024-7, 78058-9 ####[facility] [id number] [address] [place] TSH SerPl-aCncon 06-10-2024 TSH Qn 1.620 m[IU]/L Normal 0.270-4.200 [facility] Comment on above: Order Comment: Speci men Type: BLOOD SPECIMENOrdering Facility: [facility] Address: [address] [place] [id number] Performed By: #### 3 016-3, 85990-5, 3024-7, 41398-6 ####[facility]ORYCLIA [id number] [place] [address] [place] 36on 06-04-2024 36 Normal [facility] 36on 06-01-2024 36 Normal [facility] Progress Noteon 05-22-2024 Progress Note Normal [facility] PT Coag (Bld) [Time]on 05-21 INR Coag (PPP) [Relative time] 2.8 {INR} Abnormal 0.9 - 1.1 [facility] Interpretation and review of laboratory results Abnormal [facility] Progress Noteon 05-21-2024 Progress Note Normal [facility] Progress Note INR reported on yoan y Christin with [facility]. Christin can be reached at [phone] with questions. Normal [facility] Protime-INRon 05-21-2024 PT Coag (Bld) [Time] 33.9 s Abnormal 9.0 - 12.0 [facility] TransthoracicOrdere d By: Davian Landrum on 05-14-2024 Ao Root Index 1.63 cm/m2 [facility] Work Phone: [phone] Aortic Arch 2.6 cm [facility] Work Phone: Aortic Root 2.8 cm [facility] Work Phone: Aortic Sinus Valsalva 2.8 cm [facility] [employer] Work Phone: Aortic Sinus Valsalva Index 1.63 cm/m2 [facility] Work Phone: Ascending Aorta 2.7 cm [facility] Work Phone: Ascending Aorta Index 1.57 cm/m2 [facility] [employer] Work Phone: AV Area by Peak Velocity 1.4 cm2 [facility] Work Phone: AV Area by VTI 1.4 cm2 [facility] Work Phone: AV Mean Gradient 3 mmHg [facility] Work Phone: AV Mean Velocity 0.9 m/s [facility] Work Phone: [phone] AV Peak Gradient 7 mmHg [facility] Work Phone: [phone] AV Peak Velocity 1.3 m/s [facility] Work Phone: [phone] AV Velocity Ratio 0.62 [facility] Work Phone: AV VTI 30 cm [facility] Work Phone: [phone] POLA/BSA Peak Velocity 0.8 cm2/m2 [facility] Work Phone: [phone] POLA/BSA VTI 0.8 cm2/m2 [facility] Work Phone: [phone] E/E' Lateral 14 [facility] Work Phone: E/E' Ratio (Averaged) 18 [facility] Work Phone: E/E' Septal 22 [facility] Work Phone: [phone] EF BP 61 % 55 - 100 % [facility] Work Phone: Est. RA Pressure 3 mmHg [facility] Work Phone: Fractional Shortening 2D 30 % 28 - 44 % [facility] Work Phone: [phone] Global Longitudinal Strain -15.3 % [facility] Work Phone: [phone] Interpretation and review of laboratory results Abnormal [facility] Work Phone: [phone] IVC Diameter 1.8 cm [facility] Work Phone: [phone] IVSd 1 cm Abnormal 0.6 - 0.9 cm [facility] Work Phone: LA Diameter 4.1 cm [facility] Work Phone: [phone] LA Size Index 2.38 cm/m2 [facility] Work Phone: [phone] LA Volume 2C 63 mL Abnormal 22 - 52 mL [facility] Work Phone: LA Volume 4C 80 mL Abnormal 22 - 52 mL [facility] Work Phone: LA Volume A/L 76 mL [facility] Work Phone: LA Volume BP 72 mL Abnormal 22 - 52 mL [facility] Work Phone: LA Volume Index 2C 37 mL/m2 Abnormal 16 - 34 mL/m2 [facility] Work Phone: LA Volume Index 4C 47 mL/m2 Abnormal 16 - 34 mL/m2 [facility] Work Phone: LA Volume Index A/L 44 mL/m2 16 - 34 mL/m2 [facility] Work Phone: LA Volume Index BP 42 ml/m2 Abnormal 16 - 34 ml/m2 [facility] Work Phone: LA/AO Root Ratio 1.46 [facility] Work Phone: LV E' Lateral Velocity 11 cm/s [facility] Work Phone: LV E' Septal Velocity 7 cm/s [facility] Work Phone: LV EDV A2C 45 mL [facility] Work Phone: LV EDV A4C 48 mL [facility] Work Phone: LV EDV BP 47 mL Abnormal 56 - 104 mL [facility] Work Phone: LV EDV Index A2C 26 mL/m2 [facility] Work Phone: LV EDV Index A4C 28 mL/m2 [facility] Work Phone: LV EDV Index BP 27 mL/m2 [facility] Work Phone: LV Ejection Fraction A2C 68 % [facility] Work Phone: LV Ejection Fraction A4C 55 % [facility] Work Phone: LV ESV A2C 14 mL [facility] Work Phone: LV ESV A4C 21 mL [facility] Work Phone: LV ESV BP 18 mL Abnormal 19 - 49 mL [facility] Work Phone: LV ESV Index A2C 8 mL/m2 [facility] Work Phone: LV ESV Index A4C 12 mL/m2 [facility] Work Phone: LV ESV Index BP 10 mL/m2 [facility] Work Phone: LV Mass 2D 142.5 g 67 - 162 g [facility] Work Phone: LV Mass 2D Index 82.8 g/m2 43 - 95 g/m2 [facility] Work Phone: [phone] LV RWT Ratio 0.47 [facility] Work Phone: [phone] LVIDd 4.3 cm 3.9 - 5.3 cm [facility] Work Phone: [phone] LVIDd Index 2.5 cm/m2 [facility] Work Phone: [phone] LVIDs 3 cm [facility] Work Phone: [phone] LVIDs Index 1.74 cm/m2 [facility] Work Phone: [phone] LVOT Area 2.5 cm2 [facility] Work Phone: [phone] LVOT Cardiac Output 3.2 liter/mi nut e [facility] Work Phone: [phone] LVOT Diameter 1.8 cm [facility] Work Phone: [phone] LVOT Mean Gradient 1 mmHg [facility] Work Phone: [phone] LVOT Peak Gradient 2 mmHg [facility] Work Phone: [phone] LVOT Peak Velocity 0.8 m/s [facility] Work Phone: [phone] LVOT Stroke Volume Index 25.1 mL/m2 [facility] Work Phone: LVOT SV 43.2 ml [facility] Work Phone: [phone] LVOT VTI 17 cm [facility] Work Phone: LVOT:AV VTI Index 0.57 [facility] Work Phone: [phone] LVPWd 1 cm Abnormal 0.6 - 0.9 cm [facility] Work Phone: MV A Velocity 0.41 m/s [facility] Work Phone: MV Area by PHT 3.3 cm2 [facility] Work Phone: MV Area by VTI 1.2 cm2 [facility] Work Phone: MV E Velocity 1.54 m/s [facility] Work Phone: MV E Wave Deceleration Time 180.9 ms [facility] Work Phone: [phone] MV E/A 3.76 [facility] Work Phone: MV Max Velocity 1.7 m/s [facility] Work Phone: MV Mean Gradient 4 mmHg [facility] Work Phone: [phone] MV Mean Velocity 0.9 m/s [facility] Work Phone: MV Peak Gradient 11 mmHg [facility] Work Phone: MV PHT 66.9 ms [facility] Work Phone: MV VTI 35.1 cm [facility] Work Phone: MV:LVOT VTI Index 2.06 [facility] Work Phone: RA Area 4C 55.1 mL [facility] Work Phone: RV Basal Dimension 2.7 cm [facility] Work Phone: RV Free Wall Peak S' 11 cm/s [facility] Work Phone: RV Longitudinal Dimension 4.9 cm [facility] Work Phone: RV Mid Dimension 2.1 cm [facility] Work Phone: RVSP 54 mmHg [facility] Work Phone: Sinotubular Junction 2.7 cm [facility] Work Phone: TAPSE 1.5 cm Abnormal 1.7 cm [facility] Work Phone: TR Max Velocity 3.56 m/s Inna Mora [facility] Work Phone: [phone] TR Peak Gradient 51 mmHg Inna Shannon [facility] Work Phone: [phone] TR Peak Velocity PISA 3.6 m/s Jessee [facility] Work Phone: [phone] TR VTI 120.8 cm [facility] Work Phone: [phone] TV EROA 0.2 cm2 [facility] Work Phone: [phone] TV Nyquist Velocity 39 cm/s [facility] Work Phone: [phone] [facility] Work Phone: [phone] US Heart Transthoracicon There is a 1.3 [...] time] 2.7 {INR} Abnormal 0.9 - 1.1 [facility] Interpretation and review of laboratory results Abnormal [facility] Progress Noteon 05-09-2024 Progress Note Graciela from [facility] call ed in results. Normal [facility] Progress Note Normal [facility] Protime-INRon 05-09-2024 PT Coag (Bld) [Time] 32.1 s Abnormal 9.0 - 12.0 [facility] PT Coag (Bld) [Time]on 05-01 INR Coag (PPP) [Relative time] 2.7 {INR} Abnormal 0.9 - 1.1 [facility] Interpretation and review of laboratory results Abnormal [facility] Progress Noteon 05-01-2024 Progress Note Normal [facility] Progress Note Tia- [facility]- [phone] Normal [facility] Protime-INRon 05-01-2024 PT Coag (Bld) [Time] 32.4 s Abnormal 9.0 - 12.0 [facility] 36on 04-27-2024 36 Pt requested refill on warfarin 5mg. Sent to [facility]. Receipt confirmed by pharmacy. Normal [facility] Progress Noteon 04-27-2024 Progress Note Normal [facility] Progress Note Tia- [facility]- [phone] Normal [facility] Progress Noteon 04-25-2024 Progress Note Normal [facility] Progress Noteon 04-23-2024 Progress Note Normal [facility] Progress Note Christin Rene called any questions or concerns [phone] Normal [facility] PT Coag (Bld) [Time]on 04-19 INR Coag (PPP) [Relative time] 2.1 {INR} Abnormal 0.9 - 1.1 [facility] Interpretation and review of laboratory results Abnormal [facility] Progress Noteon 04-19-2024 Progress Note Normal [facility] Progress Note Graciela with [facility] repo rts INR on Graciela can be reached at [phone] with any questions. Normal [facility] Protime-INRon 04-19-2024 PT Coag (Bld) [Time] 24.9 s Abnormal 9.0 - 12.0 [facility] Progress Noteon 04-16-2024 Progress Note Christin- [facility]- [phone] Normal [facility] Progress Note Normal [facility] Progress Noteon 04-14-2024 Progress Note Placed new order for POCT INR, [facility] had not received. Normal [facility] [id number] 04-13-2024 [id number] Normal [facility] APTTon 04-13-2024 aPTT Coag (Bld) [Time] 132.2 s Critically high 20.0-30. 5 [facility] Comment on above: Result Comment: BUBBA Garcia COMMENTS:NOTE: The therapeutic time for Heparin anticoagulation, based on Xa activity inhibition, is an APTT of 46-80 seconds. Performed By: #### L AB320, OAE262 ####Tax Services Manager: VELMA VALADEZ ([phone])[facility] ([facility])[address] [place] [address] BASIC METABOLIC PANELon 03-19 Anion gap [Moles/Vol] 2 mmol/L Low 3-13 [facility] Comment on above: Performed By: #### L AB15 ####Tax Services Manager: VELMA VALADEZ ([phone])[facility] ([facility])[address] [place] [address] Calcium [Mass/Vol] 9.0 mg/dL Normal 8.4-10.4 [facility] Comment on above: Performed By: #### L AB15 ####Tax Services Manager: VELMA VALADEZ ([phone])[facility] ([facility])[address] [place] [address] Chloride [Moles/Vol] 108 mmol/L High 98-107 [facility] Comment on above: Performed By: #### L AB15 ####Tax Services Manager: VELMA VALADEZ ([phone])[facility] [place] [address] CO2 [Moles/Vol] 25 mmol/L Normal 22-30 [facility] Comment on above: Performed By: #### L AB15 ####Tax Services Manager: VELMA VALADEZ ([phone])[facility] ([facility])[address] [place] [address] Creatinine [Mass/Vol] 1.00 mg/dL Normal 0.52-1.04 [facility] Comment on above: Performed By: #### L AB15 ####Tax Services Manager: VELMA VALADEZ ([phone])[facility] ([facility])[address] [place] [address] GLOMERULAR FILTRATION RATE ML/MIN/1.73 SQ M.PREDICTED 55.7 mL/min/1.73m*2 Low >60.0 [facility] Comment on above: Result Comment: Calc ulation based on the Chronic Kidney Disease Epidemiology Collaboration (CKD-EPI) equation refit without adjustment for race Performed By: #### L AB15 ####Tax Services Manager: VELMA VALADEZ ([phone])[facility] ([facility])[address] [place] [address] Glucose [Mass/Vol] 98 mg/dL Normal 70-100 [facility] Comment on above: Performed By: #### L AB15 ####Tax Services Manager: VELMA VALADEZ ([phone])[facility] ([facility])[address] [place] [address] Potassium [Moles/Vol] 4.3 mmol/L Normal 3.5-5.1 [facility] Comment on above: Performed By: #### L AB15 ####Tax Services Manager: VELMA VALADEZ ([phone])[facility] ([facility])[address] [place] [address] Sodium [Moles/Vol] 135 mmol/L Normal 135-145 [facility] Comment on above: Performed By: #### L AB15 ####Tax Services Manager: VELMA VALADEZ ([phone])[facility] [place] [address] Urea nitrogen [Mass/Vol] 18 mg/dL High 7-17 [facility] Comment on above: Performed By: #### L AB15 ####Tax Services Manager: VELMA VALADEZ ([phone])[facility] [place] [address] Basic metabolic 1998 panelon 04-13-2024 Anion gap [Moles/Vol] 2 mmol/L Low 3 - 13 mmol/L [facility] Calcium [Mass/Vol] 9.0 mg/dL 8.4 - 10. 4 mg/dL [facility] Chloride [Moles/Vol] 108 mmol/L High 98 - 10 7 mmol/L [facility] CO2 [Moles/Vol] 25 mmol/L 22 - 30 mmol/L [facility] Creatinine [Mass/Vol] 1.00 mg/dL 0.52 - 1.04 mg/dL [facility] GFR/1.73 sq M.predicted (S/P/Bld) [Vol rate/Area] 55.7 mL/min Low - PINF [facility] Comment on above: Calculation based on the Chronic Kidney Disease Epidemiology Collaboration (CKD-EPI) equation refit without adjustment for race Glucose [Mass/Vol] 98 mg/dL 70 - 100 mg/dL [facility] Interpretation and review of laboratory results Abnormal [facility] Potassium [Moles/Vol] 4.3 mmol/L 3.5 - 5.1 mmol/L [facility] Sodium [Moles/Vol] 135 mmol/L 135 - 145 mmol/L [facility] Urea nitrogen [Mass/Vol] 18 mg/dL High 7 - 17 mg/dL [facility] CARECOORDon 04-13-2024 CARECOORD Normal [facility] CARECOSUPAI Normal [facility] CBC W Auto Differential pane l (Bld)on 04-13-2024 Basophils (Bld) [#/Vol] 0.0 10*3/uL 0.0 - 0.2 10*3/uL [facility] Basophils/100 WBC (Bld) 0.7 % 0.0 - 2.0 % [facility] Eosinophils (Bld) [#/Vol] 0.1 10*3/uL 0.0 - 0.5 10*3/uL [facility] Eosinophils/100 WBC (Bld) 2.6 % 0.0 - 6.0 % [facility] Erythrocyte distribution width (RBC) [Ratio] 14.5 % 11.5 - 15.0 % [facility] Hematocrit (Bld) [Volume fraction] 26.3 % Low 35.0 - 47.0 % [facility] Hemoglobin (Bld) [Mass/Vol] 8.6 g/dL Low 11.7 - 16.0 g/dL [facility] Immature granulocytes (Bld) [#/Vol] 0.0 10*3/uL NINF - 0.1 10*3/uL [facility] Immature granulocytes/100 WBC (Bld) 0.2 % 0.0 - 2.0 % [facility] Interpretation and review of laboratory results Abnormal [facility] Lymphocytes (Bld) [#/Vol] 1.4 10*3/uL 1.0 - 4.3 10*3/uL [facility] Lymphocytes/100 WBC (Bld) 33.5 % 15.0 - 45.0 % [facility] MCH (RBC) [Entitic mass] 29.8 pg 26.0 - 34.0 pg [facility] [facility] MCHC (RBC) [Mass/Vol] 32.7 % 30.5 - 36.0 % [facility] MCV (RBC) [Entitic vol] 91.0 fL 77.0 - 99.0 fL [facility] Monocytes (Bld) [#/Vol] 0.5 10*3/uL 0.0 - 0.9 10*3/uL [facility] Monocytes/100 WBC (Bld) 11.3 % 5.0 - 13.0 % [facility] Neutrophils (Bld) [#/Vol] 2.2 10*3/uL 1.8 - 7.5 10*3/uL [facility] Neutrophils/100 WBC (Bld) 51.7 % 38.0 - 82.0 % [facility] Nucleated RBC/100 WBC (Bld) [Ratio] 0.0 % [facility] Platelet mean volume (Bld) [Entitic vol] 9.4 fL 9.0 - 12.7 fL [facility] Platelets (Bld) [#/Vol] 317 10*3/uL 140 - 440 10*3/uL [facility] RBC (Bld) [#/Vol] 2.89 10*6/uL Low 3.80 - 5.2 0 10*6/uL [facility] WBC (Bld) [#/Vol] 4.2 10*3/uL 3.6 - 10.7 10*3/uL [facility] CBC WITH AUTO DIFFERENTIALon 04-13-2024 Basophils (Bld) [#/Vol] 0.0 10*3/uL Normal 0.0-0.2 [facility] Comment on above: Performed By: #### L [id number] ####Tax Services Manager: VELMA VALADEZ ([phone])[facility])[address] [place] [address] Basophils/100 WBC (Bld) 0.7 % Normal 0.0-2.0 [facility] Comment on above: Performed By: #### L [id number] ####Tax Services Manager: VELMA VALADEZ ([phone])[facility])[address] [place] [address] Eosinophils (Bld) [#/Vol] 0.1 10*3/uL Normal 0.0-0.5 [facility] Comment on above: Performed By: #### L [id number] ####Tax Services Manager: VELMA VALADEZ ([phone])[facility])[address] [place] [address] Eosinophils/100 WBC (Bld) 2.6 % Normal 0.0-6.0 [facility] Comment on above: Performed By: #### L [id number] ####Tax Services Manager: VELMA VALADEZ ([phone])[facility])[address] [place] [address] Erythrocyte distribution width (RBC) [Ratio] 14.5 % Normal 11.5-15.0 [facility] Comment on above: Performed By: #### L [id number] ####Tax Services Manager: VELMA VALADEZ ([phone])[facility])[address] [place] [address] Hematocrit (Bld) [Volume fraction] 26.3 % Low 35.0-47.0 [facility] Comment on above: Performed By: #### L [id number] ####Tax Services Manager: VELMA VALADEZ ([phone])[facility])[address] [place] [address] Hemoglobin (Bld) [Mass/Vol] 8.6 g/dL Low 11.7-16.0 [facility] Comment on above: Performed By: #### L [id number] ####Tax Services Manager: VELMA VALADEZ ([phone])[facility])[address] [place] [address] IMMATURE GRANS % 0.2 % Normal 0.0-2.0 [facility] Comment on above: Performed By: #### L [id number] ####Tax Services Manager: VELMA VALADEZ ([phone])[facility])[address] [place] [address] IMMATURE GRANS ABSOLUTE 0.0 10*3/uL Normal <0.1 [facility] Comment on above: Performed By: #### L [id number] ####Tax Services Manager: VELMA VALADEZ ([phone])[facility])[address] [place] [address] Lymphocytes (Bld) [#/Vol] 1.4 10*3/uL Normal 1.0-4.3 [facility] Comment on above: Performed By: #### L [id number] ####Tax Services Manager: VELMA VALADEZ ([phone])[facility])[address] [place] [address] Lymphocytes/100 WBC (Bld) 33.5 % Normal 15.0-45.0 [facility] Comment on above: Performed By: #### L [id number] ####Tax Services Manager: VELMA VALADEZ ([phone])[facility])[address] [place] [address] MCH (RBC) [Entitic mass] 29.8 pg Normal 26.0-34.0 [facility] Comment on above: Performed By: #### L [id number] ####Tax Services Manager: VELMA VALADEZ ([phone])[facility])[address] [place] [address] MCHC 32.7 % Normal 30.5-36.0 [facility] Comment on above: Performed By: #### L [id number] ####Tax Services Manager: VELMA VALADEZ ([phone])[facility])[address] [place] [address] MCV (RBC) [Entitic vol] 91.0 fL Normal 77.0-99.0 [facility] Comment on above: Performed By: #### L [id number] ####Tax Services Manager: VELMA VALADEZ ([phone])[facility])[address] [place] [address] Monocytes (Bld) [#/Vol] 0.5 10*3/uL Normal 0.0-0.9 [facility] Comment on above: Performed By: #### L [id number] ####Tax Services Manager: VELMA VALADEZ ([phone])[facility])[address] [place] [address] Monocytes/100 WBC (Bld) 11.3 % Normal 5.0-13.0 [facility] Comment on above: Performed By: #### L [id number] ####Tax Services Manager: VELMA VALADEZ ([phone])[facility])[address] [place] [address] NEUTROPHILS ABSOLUTE 2.2 10*3/uL Normal 1.8-7.5 [facility] Comment on above: Performed By: #### L [id number] ####Tax Services Manager: VELMA VALADEZ ([phone])[facility])[address] [place] [address] Neutrophils/100 WBC (Bld) 51.7 % Normal 38.0-82.0 [facility] Comment on above: Performed By: #### L [id number] ####Tax Services Manager: VELMA VALADEZ ([phone])[facility])[address] [place] [address] NRBC 0.0 /100 WBCs Normal 0.0-2.0 [facility] Comment on above: Performed By: #### L [id number] ####Tax Services Manager: VELMA VALADEZ ([phone])[facility])[address] [place] [address] Platelet mean volume (Bld) [Entitic vol] 9.4 fL Normal 9.0-12.7 [facility] Comment on above: Performed By: #### L [id number] ####Tax Services Manager: VELMA VALADEZ ([phone])[facility])[address] [place] [address] Platelets (Bld) [#/Vol] 317 10*3/uL Normal 140-440 [facility] Comment on above: Performed By: #### L [id number] ####Tax Services Manager: VELMA VALADEZ ([phone])[facility])[address] [place] [address] RBC (Bld) [#/Vol] 2.89 10*6/uL Low 3.80-5.20 [facility] Comment on above: Performed By: #### L [id number] ####Tax Services Manager: VELMA VALADEZ ([phone])[facility])[address] [place] [address] WBC (Bld) [#/Vol] 4.2 10*3/uL Normal 3.6-10.7 [facility] Comment on above: Performed By: #### L [id number] ####Tax Services Manager: VELMA VALADEZ ([phone])[facility])[address] [place] [address] IDNon 04-13-2024 IDN Normal [facility] Laboratory - Coagulationon 0 04-13-2024 PT Coag (Bld) [Time] 24.2 s High 9.0 - 1 2.0 s [facility] Nursing Noteon 04-13-2024 Nursing Note AVS explained. Discharged patient on stable condition. Normal [facility] Nursing Note Instructed patient o n warfarin dosing, she will take 7.5mg tomorrow, and 5mg Tuesday, and then we will check INR with home care on Tuesday as instructed. Normal [facility] PROTHROMBIN TIMEon INR Coag (PPP) [Relative time] 2.3 {INR} High 0.9-1.1 [facility] Comment on above: Result [...] Myocardial Infarction Performed By: #### [place] [id number], [id number] ####Tax Services Manager: VELMA VALADEZ ([phone])[address] PT Coag (PPP) [Time] 24.2 s High 9.0-12.0 [facility] Comment on above: Performed By: #### [place] AB320, [id number] ####Tax Services Manager: VELMA VALADEZ ([phone])[facility])[address] [place] [address] PT Coag (Bld) [Time]on 04-13 INR Coag (PPP) [Relative time] 2.3 {INR} High 0.9 - 1.1 [facility] Comment on above: Recommended Anticoag ulant [...] Interpretation and review of laboratory results Abnormal [facility] Progress Noteon 04-13-2024 Progress Note Normal [facility] Progress Note Normal [facility] Progress Note Normal [facility] aPTT Coag (Bld) [Time]Ordere d By: Melany Tejeda on 04-13-2024 aPTT Coag (PPP) [Time] 132.2 s Critically high 20 .0 - 30.5 s [facility] Interpretation and review of laboratory results Abnormal [facility] NOTE: The therapeuti c time for Heparin anticoagulation, based on Xa activity inhibition, is an APTT of 46-80 seconds. [facility] BASIC METABOLIC PANELon 03-19 Anion gap [Moles/Vol] 3 mmol/L Normal 3-13 [facility] Comment on above: Performed By: #### L [id number] ####Tax Services Manager: VELMA VALADEZ ([phone])[facility])[address] [place] [address] Calcium [Mass/Vol] 9.3 mg/dL Normal 8.4-10.4 [facility] Comment on above: Performed By: #### L AB15 ####Tax Services Manager: VELMA VALADEZ ([phone])[facility] ([facility])[address] [place] [address] [place] Chloride [Moles/Vol] 108 mmol/L High 98-107 [facility] Comment on above: Performed By: #### L AB15 ####Tax Services Manager: VELMA VALADEZ ([phone])[facility] ([facility])[address] [place] [address] [place] CO2 [Moles/Vol] 24 mmol/L Normal 22-30 [facility] Comment on above: Performed By: #### L AB15 ####Tax Services Manager: EVLMA VALADEZ ([phone])[facility])[address] [place] [address] Creatinine [Mass/Vol] 0.99 mg/dL Normal 0.52-1.04 [facility] Comment on above: Performed By: #### L AB15 ####Tax Services Manager: VELMA VALADEZ ([phone])[facility])[address] [place] [address] GLOMERULAR FILTRATION RATE ML/MIN/1.73 SQ M.PREDICTED 56.3 mL/min/1.73m*2 Low >60.0 [facility] Comment on above: Result Comment: Calc ulation based on the Chronic Kidney Disease Epidemiology Collaboration (CKD-EPI) equation refit without adjustment for race Performed By: #### L AB15 ####Tax Services Manager: VELMA VALADEZ ([phone])[facility] ([facility])[address] [place] [address] Glucose [Mass/Vol] 101 mg/dL High 70-100 [facility] Comment on above: Performed By: #### L AB15 ####Tax Services Manager: VELMA VALADEZ ([phone])[facility] ([facility])[address] [place] [address] Potassium [Moles/Vol] 3.9 mmol/L Normal 3.5-5.1 [facility] Comment on above: Performed By: #### L AB15 ####Tax Services Manager: VELMA VALADEZ ([phone])[facility])[address] [place] [address] Sodium [Moles/Vol] 135 mmol/L Normal 135-145 [facility] Comment on above: Performed By: #### L AB15 ####Tax Services Manager: VELMA VALADEZ ([phone])[facility])[address] [place] [address] [place] Urea nitrogen [Mass/Vol] 16 mg/dL Normal 7-17 [facility] Comment on above: Performed By: #### L AB15 ####Tax Services Manager: VELMA VALADEZ ([phone])[facility])[address] [place] [address] Basic metabolic 1998 panelon 04-12-2024 Anion gap [Moles/Vol] 3 mmol/L 3 - 13 mmol/L [facility] Calcium [Mass/Vol] 9.3 mg/dL 8.4 - 10. 4 mg/dL [facility] Chloride [Moles/Vol] 108 mmol/L High 98 - 10 7 mmol/L [facility] CO2 [Moles/Vol] 24 mmol/L 22 - 30 mmol/L [facility] Creatinine [Mass/Vol] 0.99 mg/dL 0.52 - 1.04 mg/dL [facility] GFR/1.73 sq M.predicted (S/P/Bld) [Vol rate/Area] 56.3 mL/min Low - PINF [facility] Comment on above: Calculation based on the Chronic Kidney Disease Epidemiology Collaboration (CKD-EPI) equation refit without adjustment for race Glucose [Mass/Vol] 101 mg/dL High 70 - 100 mg/dL [facility] Interpretation and review of laboratory results Abnormal [facility] Potassium [Moles/Vol] 3.9 mmol/L 3.5 - 5.1 mmol/L [facility] Sodium [Moles/Vol] 135 mmol/L 135 - 145 mmol/L [facility] Urea nitrogen [Mass/Vol] 16 mg/dL 7 - 17 mg/dL [facility] CARECOORDon 04-12-2024 CARECOORD Normal [facility] CBC W Auto Differential pane l (Bld)on 04-12-2024 Basophils (Bld) [#/Vol] 0.0 10*3/uL 0.0 - 0.2 10*3/uL [facility] Basophils/100 WBC (Bld) 0.5 % 0.0 - 2.0 % [facility] Eosinophils (Bld) [#/Vol] 0.1 10*3/uL 0.0 - 0.5 10*3/uL [facility] Eosinophils/100 WBC (Bld) 2.4 % 0.0 - 6.0 % [facility] Erythrocyte distribution width (RBC) [Ratio] 14.8 % 11.5 - 15.0 % [facility] Hematocrit (Bld) [Volume fraction] 28.3 % Low 35.0 - 47.0 % [facility] Hemoglobin (Bld) [Mass/Vol] 9.3 g/dL Low 11.7 - 16.0 g/dL [facility] Immature granulocytes (Bld) [#/Vol] 0.0 10*3/uL NINF - 0.1 10*3/uL [facility] [employer] Immature granulocytes/100 WBC (Bld) 0.2 % 0.0 - 2.0 % [facility] Interpretation and review of laboratory results Abnormal [facility] Lymphocytes (Bld) [#/Vol] 1.4 10*3/uL 1.0 - 4.3 10*3/uL [facility] Lymphocytes/100 WBC (Bld) 33.0 % 15.0 - 45.0 % [facility] MCH (RBC) [Entitic mass] 30.4 pg 26.0 - 34.0 pg [facility] MCHC (RBC) [Mass/Vol] 32.9 % 30.5 - 36.0 % [facility] MCV (RBC) [Entitic vol] 92.5 fL 77.0 - 99.0 fL [facility] Monocytes (Bld) [#/Vol] 0.5 10*3/uL 0.0 - 0.9 10*3/uL [facility] Monocytes/100 WBC (Bld) 11.9 % 5.0 - 13.0 % [facility] Neutrophils (Bld) [#/Vol] 2.1 10*3/uL 1.8 - 7.5 10*3/uL [facility] Neutrophils/100 WBC (Bld) 52.0 % 38.0 - 82.0 % [facility] Nucleated RBC/100 WBC (Bld) [Ratio] 0.0 % [facility] Platelet mean volume (Bld) [Entitic vol] 9.5 fL 9.0 - 12.7 fL [facility] Platelets (Bld) [#/Vol] 307 10*3/uL 140 - 440 10*3/uL [facility] RBC (Bld) [#/Vol] 3.06 10*6/uL Low 3.80 - 5.2 0 10*6/uL [facility] WBC (Bld) [#/Vol] 4.1 10*3/uL 3.6 - 10.7 10*3/uL [facility] CBC WITH AUTO DIFFERENTIALon 04-12-2024 Basophils (Bld) [#/Vol] 0.0 10*3/uL Normal 0.0-0.2 [facility] Comment on above: Performed By: #### L [id number] ####Tax Services Manager: VELMA VALADEZ ([phone])[facility])[address] [place] [address] Basophils/100 WBC (Bld) 0.5 % Normal 0.0-2.0 [facility] Comment on above: Performed By: #### L [id number] ####Tax Services Manager: VELMA VALADEZ ([phone])[facility])[address] [place] [address] Eosinophils (Bld) [#/Vol] 0.1 10*3/uL Normal 0.0-0.5 [facility] Comment on above: Performed By: #### L [id number] ####Tax Services Manager: VELMA VALADEZ ([phone])[facility])[address] [place] [address] Eosinophils/100 WBC (Bld) 2.4 % Normal 0.0-6.0 [facility] Comment on above: Performed By: #### L [id number] ####Tax Services Manager: VELMA VALADEZ ([phone])[facility] ([facility])[address] [place] [address] Erythrocyte distribution width (RBC) [Ratio] 14.8 % Normal 11.5-15.0 [facility] Comment on above: Performed By: #### L [id number] ####Tax Services Manager: VELMA VALADEZ ([phone])[address] Hematocrit (Bld) [Volume fraction] 28.3 % Low 35.0-47.0 [facility] Comment on above: Performed By: #### L [id number] ####Tax Services Manager: VELMA VALADEZ ([phone])[facility])[address] [place] [address] Hemoglobin (Bld) [Mass/Vol] 9.3 g/dL Low 11.7-16.0 [facility] Comment on above: Performed By: #### L [id number] ####Tax Services Manager: VELMA VALADEZ ([phone])[facility])[address] [place] [address] IMMATURE GRANS % 0.2 % Normal 0.0-2.0 [facility] Comment on above: Performed By: #### L [id number] ####Tax Services Manager: VELMA VALADEZ ([phone])[facility])[address] [place] [address] IMMATURE GRANS ABSOLUTE 0.0 10*3/uL Normal <0.1 [facility] Comment on above: Performed By: #### L [id number] ####Tax Services Manager: VELMA VALADEZ ([phone])[facility])[address] [place] [address] Lymphocytes (Bld) [#/Vol] 1.4 10*3/uL Normal 1.0-4.3 [facility] Comment on above: Performed By: #### L [id number] ####Tax Services Manager: VELMA VALADEZ ([phone])[facility])[address] [place] [address] Lymphocytes/100 WBC (Bld) 33.0 % Normal 15.0-45.0 [facility] Comment on above: Performed By: #### L [id number] ####Tax Services Manager: VELMA VALADEZ ([phone])[facility])[address] [place] [address] MCH (RBC) [Entitic mass] 30.4 pg Normal 26.0-34.0 [facility] Comment on above: Performed By: #### L [id number] ####Tax Services Manager: VELMA VALADEZ ([phone])[facility])[address] [place] [address] MCHC 32.9 % Normal 30.5-36.0 [facility] Comment on above: Performed By: #### L [id number] ####Tax Services Manager: VELMA VALADEZ ([phone])[facility])[address] [place] [address] MCV (RBC) [Entitic vol] 92.5 fL Normal 77.0-99.0 [facility] Comment on above: Performed By: #### L [id number] ####Tax Services Manager: VELMA VALADEZ ([phone])[facility])[address] [place] [address] Monocytes (Bld) [#/Vol] 0.5 10*3/uL Normal 0.0-0.9 [facility] Comment on above: Performed By: #### L [id number] ####Tax Services Manager: VELMA VALADEZ ([phone])[facility] ([facility])[address] [place] [address] Monocytes/100 WBC (Bld) 11.9 % Normal 5.0-13.0 [facility] Comment on above: Performed By: #### L [id number] ####Tax Services Manager: VELMA VALADEZ ([phone])[facility])[address] [place] [address] NEUTROPHILS ABSOLUTE 2.1 10*3/uL Normal 1.8-7.5 [facility] Comment on above: Performed By: #### L [id number] ####Tax Services Manager: VELMA VALADEZ ([phone])[facility])[address] [place] [address] Neutrophils/100 WBC (Bld) 52.0 % Normal 38.0-82.0 [facility] Comment on above: Performed By: #### L [id number] ####Tax Services Manager: VELMA VALADEZ ([phone])[facility])[address] [place] [address] NRBC 0.0 /100 WBCs Normal 0.0-2.0 [facility] Comment on above: Performed By: #### L [id number] ####Tax Services Manager: VELMA VALADEZ ([phone])[facility])[address] [place] [address] Platelet mean volume (Bld) [Entitic vol] 9.5 fL Normal 9.0-12.7 [facility] Comment on above: Performed By: #### L [id number] ####Tax Services Manager: VELMA VALADEZ ([phone])[facility] ([facility])[address] [place] [address] Platelets (Bld) [#/Vol] 307 10*3/uL Normal 140-440 [facility] Comment on above: Performed By: #### L [id number] ####Tax Services Manager: VELMA VALADEZ ([phone])[facility] ([facility])[address] [place] [address] RBC (Bld) [#/Vol] 3.06 10*6/uL Low 3.80-5.20 [facility] Comment on above: Performed By: #### L [id number] ####Tax Services Manager: VELMA VALADEZ ([phone])[facility] ([facility])[address] [place] [address] WBC (Bld) [#/Vol] 4.1 10*3/uL Normal 3.6-10.7 [facility] Comment on above: Performed By: #### L [id number] ####Tax Services Manager: VELMA VALADEZ ([phone])[facility] ([facility])[address] [place] [address] IDNon 04-12-2024 IDN Normal [facility] IDN Normal [facility] Laboratory - Coagulationon 0 04-12-2024 PT Coag (Bld) [Time] 20.3 s High 9.0 - 1 2.0 s [facility] PROTHROMBIN TIMEon INR Coag (PPP) [Relative time] 1.9 {INR} High 0.9-1.1 [facility] Comment on above: Result [...] Myocardial Infarction Performed By: #### L [id number] ####Tax Services Manager: VELMA VALADEZ ([phone])[facility] ([facility])[address] [place] [address] PT Coag (PPP) [Time] 20.3 s High 9.0-12.0 [facility] Comment on above: Performed By: #### L [id number] ####Tax Services Manager: VELMA VALADEZ ([phone])[facility] [place] [address] PT Coag (Bld) [Time]on 04-12 INR Coag (PPP) [Relative time] 1.9 {INR} High 0.9 - 1.1 [facility] Comment on above: Recommended Anticoag ulant [...] Interpretation and review of laboratory results Abnormal [facility] Progress Noteon 04-12-2024 Progress Note Normal [facility] Progress Note Normal [facility] APTTon 04-11-2024 aPTT Coag (Bld) [Time] 62.7 s High 20.0-30.5 [facility] Comment on above: Result Comment: BUBBA Garcia COMMENTS:NOTE: The therapeutic time for Heparin anticoagulation, based on Xa activity inhibition, is an APTT of 46-80 seconds. Performed By: #### L [id number] ####Tax Services Manager: VELMA VALADEZ ([phone])[facility] [place] [address] aPTT Coag (Bld) [Time] 69.0 s High 20.0-30.5 [facility] Comment on above: Result Comment: BUBBA Garcia COMMENTS:NOTE: The therapeutic time for Heparin anticoagulation, based on Xa activity inhibition, is an APTT of 46-80 seconds. Performed By: #### L [id number], [id number] ####Tax Services Manager: VELMA VALADEZ ([phone])[facility] ([facility])[address] [place] [address] BASIC METABOLIC PANELon 09-2 Anion gap [Moles/Vol] 4 mmol/L Normal 3-13 [facility] Comment on above: Performed By: #### L AB15 ####Tax Services Manager: VELMA VALADEZ ([phone])[facility] ([facility])[address] [place] [address] Calcium [Mass/Vol] 8.8 mg/dL Normal 8.4-10.4 [facility] Comment on above: Performed By: #### L AB15 ####Tax Services Manager: VELMA VALADEZ ([phone])[facility] ([facility])[address] [place] [address] Chloride [Moles/Vol] 108 mmol/L High 98-107 [facility] Comment on above: Performed By: #### L [id number] ####Tax Services Manager: VELMA VALADEZ ([phone])[facility] [place] [address] CO2 [Moles/Vol] 22 mmol/L Normal 22-30 [facility] Comment on above: Performed By: #### L [id number] ####Tax Services Manager: VELMA VALADEZ ([phone])[facility] ([facility])[address] [place] [address] Creatinine [Mass/Vol] 1.01 mg/dL Normal 0.52-1.04 [facility] Comment on above: Performed By: #### L [id number] ####Tax Services Manager: VELMA VALADEZ ([phone])[facility] ([facility])[address] [place] [address] [place] GLOMERULAR FILTRATION RATE ML/MIN/1.73 SQ M.PREDICTED 55.0 mL/min/1.73m*2 Low >60.0 [facility] Comment on above: Result Comment: Calc ulation based on the Chronic Kidney Disease Epidemiology Collaboration (CKD-EPI) equation refit without adjustment for race Performed By: #### L [id number] ####Tax Services Manager: VELMA VALADEZ ([phone])[facility] ([facility])[address] [place] [address] Glucose [Mass/Vol] 112 mg/dL High 70-100 [facility] Comment on above: Performed By: #### L [id number] ####Tax Services Manager: VELMA VALADEZ ([phone])[facility] ([facility])[address] [place] [address] Potassium [Moles/Vol] 4.0 mmol/L Normal 3.5-5.1 [facility] Comment on above: Performed By: #### L [id number] ####Tax Services Manager: VELMA VALADEZ ([phone])[facility])[address] [place] [address] Sodium [Moles/Vol] 134 mmol/L Low 135-145 [facility] Comment on above: Performed By: #### L [id number] ####Tax Services Manager: VELMA VALADEZ ([phone])[facility] ([facility])[address] [place] [address] Urea nitrogen [Mass/Vol] 16 mg/dL Normal 7-17 [facility] Comment on above: Performed By: #### L [id number] ####Tax Services Manager: VELMA VALADEZ ([phone])[facility])[address] [place] [address] Basic metabolic 1998 panelon 04-11-2024 Anion gap [Moles/Vol] 4 mmol/L 3 - 13 mmol/L [facility] Calcium [Mass/Vol] 8.8 mg/dL 8.4 - 10. 4 mg/dL [facility] Chloride [Moles/Vol] 108 mmol/L High 98 - 10 7 mmol/L [facility] CO2 [Moles/Vol] 22 mmol/L 22 - 30 mmol/L [facility] Creatinine [Mass/Vol] 1.01 mg/dL 0.52 - 1.04 mg/dL [facility] GFR/1.73 sq M.predicted (S/P/Bld) [Vol rate/Area] 55.0 mL/min Low - PINF [facility] Comment on above: Calculation based on the Chronic Kidney Disease Epidemiology Collaboration (CKD-EPI) equation refit without adjustment for race Glucose [Mass/Vol] 112 mg/dL High 70 - 100 mg/dL [facility] Interpretation and review of laboratory results Abnormal [facility] Potassium [Moles/Vol] 4.0 mmol/L 3.5 - 5.1 mmol/L [facility] Sodium [Moles/Vol] 134 mmol/L Low 135 - 145 mmol/L [facility] Urea nitrogen [Mass/Vol] 16 mg/dL 7 - 17 mg/dL [facility] CARECOORDon 04-11-2024 [facility] Normal [facility] CBC W Auto Differential pane l (Bld)on 04-11-2024 Basophils (Bld) [#/Vol] 0.0 10*3/uL 0.0 - 0.2 10*3/uL [facility] Basophils/100 WBC (Bld) 0.9 % 0.0 - 2.0 % [facility] Eosinophils (Bld) [#/Vol] 0.1 10*3/uL 0.0 - 0.5 10*3/uL [facility] Eosinophils/100 WBC (Bld) 2.0 % 0.0 - 6.0 % [facility] Erythrocyte distribution width (RBC) [Ratio] 14.8 % 11.5 - 15.0 % [facility] Hematocrit (Bld) [Volume fraction] 24.6 % Low 35.0 - 47.0 % [facility] Hemoglobin (Bld) [Mass/Vol] 8.3 g/dL Low 11.7 - 16.0 g/dL [facility] Immature granulocytes (Bld) [#/Vol] 0.0 10*3/uL NINF - 0.1 10*3/uL [facility] Immature granulocytes/100 WBC (Bld) 0.2 % 0.0 - 2.0 % [facility] Interpretation and review of laboratory results Abnormal [facility] Lymphocytes (Bld) [#/Vol] 1.4 10*3/uL 1.0 - 4.3 10*3/uL [facility] Lymphocytes/100 WBC (Bld) 31.9 % 15.0 - 45.0 % [facility] MCH (RBC) [Entitic mass] 30.5 pg 26.0 - 34.0 pg [facility] MCHC (RBC) [Mass/Vol] 33.7 % 30.5 - 36.0 % [facility] MCV (RBC) [Entitic vol] 90.4 fL 77.0 - 99.0 fL [facility] Monocytes (Bld) [#/Vol] 0.5 10*3/uL 0.0 - 0.9 10*3/uL [facility] Monocytes/100 WBC (Bld) 11.2 % 5.0 - 13.0 % [facility] Neutrophils (Bld) [#/Vol] 2.4 10*3/uL 1.8 - 7.5 10*3/uL [facility] Neutrophils/100 WBC (Bld) 53.8 % 38.0 - 82.0 % [facility] Nucleated RBC/100 WBC (Bld) [Ratio] 0.0 % [facility] Platelet mean volume (Bld) [Entitic vol] 10.0 fL 9.0 - 12.7 fL [facility] Platelets (Bld) [#/Vol] 244 10*3/uL 140 - 440 10*3/uL [facility] RBC (Bld) [#/Vol] 2.72 10*6/uL Low 3.80 - 5.2 0 10*6/uL [facility] WBC (Bld) [#/Vol] 4.5 10*3/uL 3.6 - 10.7 10*3/uL [facility] CBC WITH AUTO DIFFERENTIALon 04-11-2024 Basophils (Bld) [#/Vol] 0.0 10*3/uL Normal 0.0-0.2 [facility] Comment on above: Performed By: #### L [id number] ####Tax Services Manager: VELMA VALADEZ ([phone])[address] Basophils/100 WBC (Bld) 0.9 % Normal 0.0-2.0 [facility] Comment on above: Performed By: #### L [id number] ####Tax Services Manager: VELMA VALADEZ ([phone])[facility] ([facility])[address] [place] [address] Eosinophils (Bld) [#/Vol] 0.1 10*3/uL Normal 0.0-0.5 [facility] Comment on above: Performed By: #### L [id number] ####Tax Services Manager: VELMA VALADEZ ([phone])[address] Eosinophils/100 WBC (Bld) 2.0 % Normal 0.0-6.0 [facility] Comment on above: Performed By: #### L [id number] ####Tax Services Manager: VELMA VALADEZ ([phone])[facility])[address] [place] [address] Erythrocyte distribution width (RBC) [Ratio] 14.8 % Normal 11.5-15.0 [facility] Comment on above: Performed By: #### L [id number] ####Tax Services Manager: VELMA VALADEZ ([phone])[address] Hematocrit (Bld) [Volume fraction] 24.6 % Low 35.0-47.0 [facility] Comment on above: Performed By: #### L [id number] ####Tax Services Manager: VELMA VALADEZ ([phone])[address] Hemoglobin (Bld) [Mass/Vol] 8.3 g/dL Low 11.7-16.0 [facility] Comment on above: Performed By: #### L [id number] ####Tax Services Manager: VELMA VALADEZ ([phone])[address] IMMATURE GRANS % 0.2 % Normal 0.0-2.0 [facility] Comment on above: Performed By: #### L [id number] ####Tax Services Manager: VELMA VALADEZ ([phone])[address] IMMATURE GRANS ABSOLUTE 0.0 10*3/uL Normal <0.1 [facility] Comment on above: Performed By: #### L [id number] ####Tax Services Manager: VELMA VALADEZ ([phone])[facility])[address] [place] [address] Lymphocytes (Bld) [#/Vol] 1.4 10*3/uL Normal 1.0-4.3 [facility] Comment on above: Performed By: #### L [id number] ####Tax Services Manager: VELMA VALADEZ ([phone])[facility])[address] [place] [address] Lymphocytes/100 WBC (Bld) 31.9 % Normal 15.0-45.0 [facility] Comment on above: Performed By: #### L [id number] ####Tax Services Manager: VELMA VALADEZ ([phone])[address] MCH (RBC) [Entitic mass] 30.5 pg Normal 26.0-34.0 [facility] Comment on above: Performed By: #### L [id number] ####Tax Services Manager: VELMA VALADEZ ([phone])[facility])[address] [place] [address] MCHC 33.7 % Normal 30.5-36.0 [facility] Comment on above: Performed By: #### L [id number] ####Tax Services Manager: VELMA VALADEZ ([phone])[facility])[address] [place] [address] MCV (RBC) [Entitic vol] 90.4 fL Normal 77.0-99.0 [facility] Comment on above: Performed By: #### L [id number] ####Tax Services Manager: VELMA VALADEZ ([phone])[facility])[address] [place] [address] Monocytes (Bld) [#/Vol] 0.5 10*3/uL Normal 0.0-0.9 [facility] Comment on above: Performed By: #### L [id number] ####Tax Services Manager: VELMA VALADEZ ([phone])[facility])[address] [place] [address] Monocytes/100 WBC (Bld) 11.2 % Normal 5.0-13.0 [facility] Comment on above: Performed By: #### L [id number] ####Tax Services Manager: VELMA VALADEZ ([phone])[facility] ([facility])[address] [place] [address] NEUTROPHILS ABSOLUTE 2.4 10*3/uL Normal 1.8-7.5 [facility] Comment on above: Performed By: #### L [id number] ####Tax Services Manager: VELMA VALADEZ ([phone])[facility] ([facility])[address] [place] [address] Neutrophils/100 WBC (Bld) 53.8 % Normal 38.0-82.0 [facility] Comment on above: Performed By: #### L [id number] ####Tax Services Manager: VELMA VALADEZ ([phone])[facility] ([facility])[address] [place] [address] NRBC 0.0 /100 WBCs Normal 0.0-2.0 [facility] Comment on above: Performed By: #### L [id number] ####Tax Services Manager: VELMA VALADEZ ([phone])[facility] ([facility])[address] [place] [address] Platelet mean volume (Bld) [Entitic vol] 10.0 fL Normal 9.0-12.7 [facility] Comment on above: Performed By: #### L [id number] ####Tax Services Manager: VELMA VALADEZ ([phone])[facility] ([facility])[address] [place] [address] Platelets (Bld) [#/Vol] 244 10*3/uL Normal 140-440 [facility] Comment on above: Performed By: #### L [id number] ####Tax Services Manager: VELMA VALADEZ ([phone])[facility] ([facility])[address] [place] [address] RBC (Bld) [#/Vol] 2.72 10*6/uL Low 3.80-5.20 [facility] Comment on above: Performed By: #### L [id number] ####Tax Services Manager: VELMA VALADEZ ([phone])[facility])[address] [place] [address] WBC (Bld) [#/Vol] 4.5 10*3/uL Normal 3.6-10.7 [facility] Comment on above: Performed By: #### L [id number] ####Tax Services Manager: VELMA VALADEZ ([phone])[facility] ([facility])[address] [place] [address] [place] IDNon 04-11-2024 IDN Normal [facility] IDN Normal [facility] Laboratory - Coagulationon 0 04-11-2024 PT Coag (Bld) [Time] 20.9 s High 9.0 - 1 2.0 s [facility] No Panel Informationon 04-11 Interpretation and review of laboratory results Abnormal [facility] PROTHROMBIN TIMEon INR Coag (PPP) [Relative time] 1.9 {INR} High 0.9-1.1 [facility] Comment on above: Result [...] Myocardial Infarction Performed By: #### L [id number], [id number] ####Tax Services Manager: VELMA VALADEZ ([phone])[facility] ([facility])[address] [place] [address] PT Coag (PPP) [Time] 20.9 s High 9.0-12.0 [facility] Comment on above: Performed By: #### L [id number], [id number] ####Tax Services Manager: VELMA [phone])[facility])[address] PT Coag (Bld) [Time]on 04-11 INR Coag (PPP) [Relative time] 1.9 {INR} High 0.9 - 1.1 [facility] Comment on above: Recommended Anticoag ulant [...] Infarction Progress Noteon 04-11-2024 Progress Note Normal [facility] [employer] [facility] Progress Note Normal [facility] [employer] [facility] Progress Note Normal [facility] [employer] [facility] Progress Note Normal [facility] aPTT Coag (Bld) [Time]on aPTT Coag (PPP) [Time] 62.7 s High 20.0 - 30.5 s [facility] Interpretation and review of laboratory results Abnormal [facility] NOTE: The therapeuti c time for Heparin anticoagulation, based on Xa activity inhibition, is an APTT of 46-80 seconds. [facility] aPTT Coag (PPP) [Time] 69.0 s High 20.0 - 30.5 s [facility] NOTE: The therapeuti c time for Heparin anticoagulation, based on Xa activity inhibition, is an APTT of 46-80 seconds. [facility] APTTon 04-10-2024 aPTT Coag (Bld) [Time] 59.0 s High 20.0-30.5 [facility] Comment on above: Result Comment: BUBBA Garcia COMMENTS:NOTE: The therapeutic time for Heparin anticoagulation, based on Xa activity inhibition, is an APTT of 46-80 seconds. Performed By: #### L [id number] ####Tax Services Manager: VELMA VALADEZ ([phone])[facility] ([facility])[address] [place], [place] [id number] [place] aPTT Coag (Bld) [Time] 77.3 s High 20.0-30.5 [facility] Comment on above: Result Comment: BUBBA Garcia COMMENTS:NOTE: The therapeutic time for Heparin anticoagulation, based on Xa activity inhibition, is an APTT of 46-80 seconds. Performed By: #### L [id number], [id number] ####Tax Services Manager: VELMA VALADEZ ([phone])[facility])[address] [place] [address] BASIC METABOLIC PANELon 09-2 Anion gap [Moles/Vol] 3 mmol/L Normal 3-13 [facility] Comment on above: Performed By: #### L [id number] ####Tax Services Manager: VELMA VALADEZ ([phone])[facility] ([facility])[address] [place] [address] Calcium [Mass/Vol] 9.0 mg/dL Normal 8.4-10.4 [facility] Comment on above: Performed By: #### L [id number] ####Tax Services Manager: VELMA VALADEZ ([phone])[facility])[address] [place] [address] Chloride [Moles/Vol] 111 mmol/L High 98-107 [facility] Comment on above: Performed By: #### L [id number] ####Tax Services Manager: VELMA VALADEZ ([phone])[facility] ([facility])[address] [place] [address] CO2 [Moles/Vol] 21 mmol/L Low 22-30 [facility] Comment on above: Performed By: #### L AB15 ####Tax Services Manager: VELMA VALADEZ ([phone])[facility] ([facility])[address] [place] [address] Creatinine [Mass/Vol] 1.00 mg/dL Normal 0.52-1.04 [facility] Comment on above: Performed By: #### L AB15 ####Tax Services Manager: VELMA VALADEZ ([phone])[facility] ([facility])[address] [place] [address] GLOMERULAR FILTRATION RATE ML/MIN/1.73 SQ M.PREDICTED 55.7 mL/min/1.73m*2 Low >60.0 [facility] Comment on above: Result Comment: Calc ulation based on the Chronic Kidney Disease Epidemiology Collaboration (CKD-EPI) equation refit without adjustment for race Performed By: #### L [id number] ####Tax Services Manager: VELMA VALADEZ ([phone])[facility] ([facility])[address] [place] [address] Glucose [Mass/Vol] 101 mg/dL High 70-100 [facility] Comment on above: Performed By: #### L [id number] ####Tax Services Manager: VELMA VALADEZ ([phone])[facility] ([facility])[address] [place] [address] Potassium [Moles/Vol] 3.8 mmol/L Normal 3.5-5.1 [facility] Comment on above: Performed By: #### L AB15 ####Tax Services Manager: VELMA VALADEZ ([phone])[facility] ([facility])[address] [place] [address] Sodium [Moles/Vol] 136 mmol/L Normal 135-145 [facility] Comment on above: Performed By: #### L AB15 ####Tax Services Manager: VELMA VALADEZ ([phone])[facility])[address] [place] [address] Urea nitrogen [Mass/Vol] 15 mg/dL Normal 7-17 [facility] Comment on above: Performed By: #### L [id number] ####Tax Services Manager: VELMA VALADEZ ([phone])[facility])[address] [place] [address] Basic metabolic 1998 panelon 04-10-2024 Anion gap [Moles/Vol] 3 mmol/L 3 - 13 mmol/L [facility] Calcium [Mass/Vol] 9.0 mg/dL 8.4 - 10. 4 mg/dL [facility] Chloride [Moles/Vol] 111 mmol/L High 98 - 10 7 mmol/L [facility] CO2 [Moles/Vol] 21 mmol/L Low 22 - 30 mmol/L [facility] Creatinine [Mass/Vol] 1.00 mg/dL 0.52 - 1.04 mg/dL [facility] GFR/1.73 sq M.predicted (S/P/Bld) [Vol rate/Area] 55.7 mL/min Low - PINF [facility] Comment on above: Calculation based on the Chronic Kidney Disease Epidemiology Collaboration (CKD-EPI) equation refit without adjustment for race Glucose [Mass/Vol] 101 mg/dL High 70 - 100 mg/dL [facility] Interpretation and review of laboratory results Abnormal [facility] Potassium [Moles/Vol] 3.8 mmol/L 3.5 - 5.1 mmol/L [facility] Sodium [Moles/Vol] 136 mmol/L 135 - 145 mmol/L [facility] Urea nitrogen [Mass/Vol] 15 mg/dL 7 - 17 mg/dL [facility] CARECOORDon 04-10-2024 CARECOSUPAI Normal [facility] CBC W Auto Differential pane l (Bld)on 04-10-2024 Basophils (Bld) [#/Vol] 0.0 10*3/uL 0.0 - 0.2 10*3/uL [facility] Basophils/100 WBC (Bld) 0.7 % 0.0 - 2.0 % [facility] Eosinophils (Bld) [#/Vol] 0.1 10*3/uL 0.0 - 0.5 10*3/uL [facility] Eosinophils/100 WBC (Bld) 2.1 % 0.0 - 6.0 % [facility] Erythrocyte distribution width (RBC) [Ratio] 14.7 % 11.5 - 15.0 % [facility] Hematocrit (Bld) [Volume fraction] 26.0 % Low 35.0 - 47.0 % [facility] Hemoglobin (Bld) [Mass/Vol] 8.6 g/dL Low 11.7 - 16.0 g/dL [facility] Immature granulocytes (Bld) [#/Vol] 0.0 10*3/uL NINF - 0.1 10*3/uL [facility] Immature granulocytes/100 WBC (Bld) 0.2 % 0.0 - 2.0 % [facility] Interpretation and review of laboratory results Abnormal [facility] Lymphocytes (Bld) [#/Vol] 1.4 10*3/uL 1.0 - 4.3 10*3/uL [facility] Lymphocytes/100 WBC (Bld) 32.9 % 15.0 - 45.0 % [facility] MCH (RBC) [Entitic mass] 30.1 pg 26.0 - 34.0 pg [facility] MCHC (RBC) [Mass/Vol] 33.1 % 30.5 - 36.0 % [facility] MCV (RBC) [Entitic vol] 90.9 fL 77.0 - 99.0 fL [facility] Monocytes (Bld) [#/Vol] 0.6 10*3/uL 0.0 - 0.9 10*3/uL [facility] Monocytes/100 WBC (Bld) 13.6 % High 5.0 - 13.0 % [facility] Neutrophils (Bld) [#/Vol] 2.1 10*3/uL 1.8 - 7.5 10*3/uL [facility] Neutrophils/100 WBC (Bld) 50.5 % 38.0 - 82.0 % [facility] Nucleated RBC/100 WBC (Bld) [Ratio] 0.0 % [facility] Platelet mean volume (Bld) [Entitic vol] 10.0 fL 9.0 - 12.7 fL [facility] Platelets (Bld) [#/Vol] 238 10*3/uL 140 - 440 10*3/uL [facility] RBC (Bld) [#/Vol] 2.86 10*6/uL Low 3.80 - 5.2 0 10*6/uL [facility] WBC (Bld) [#/Vol] 4.3 10*3/uL 3.6 - 10.7 10*3/uL [facility] CBC WITH AUTO DIFFERENTIALon 04-10-2024 Basophils (Bld) [#/Vol] 0.0 10*3/uL Normal 0.0-0.2 [facility] Comment on above: Performed By: #### L [id number] ####Tax Services Manager: VELMA VALADEZ ([phone])[address] Basophils/100 WBC (Bld) 0.7 % Normal 0.0-2.0 [facility] Comment on above: Performed By: #### L [id number] ####Tax Services Manager: VELMA [phone])[facility])[address] [place] [address] Eosinophils (Bld) [#/Vol] 0.1 10*3/uL Normal 0.0-0.5 [facility] Comment on above: Performed By: #### L [id number] ####Tax Services Manager: VELMA VALADEZ ([phone])[facility])[address] [place] [address] Eosinophils/100 WBC (Bld) 2.1 % Normal 0.0-6.0 [facility] Comment on above: Performed By: #### L [id number] ####Tax Services Manager: EVLMA VALADEZ ([phone])[address] Erythrocyte distribution width (RBC) [Ratio] 14.7 % Normal 11.5-15.0 [facility] Comment on above: Performed By: #### L [id number] ####Tax Services Manager: VELMA VALADEZ ([phone])[facility])[address] [place] [address] Hematocrit (Bld) [Volume fraction] 26.0 % Low 35.0-47.0 [facility] Comment on above: Performed By: #### L [id number] ####Tax Services Manager: VELMA VALADEZ ([phone])[address] Hemoglobin (Bld) [Mass/Vol] 8.6 g/dL Low 11.7-16.0 [facility] Comment on above: Performed By: #### L [id number] ####Tax Services Manager: VELMA VALADEZ ([phone])[facility])[address] [place] [address] IMMATURE GRANS % 0.2 % Normal 0.0-2.0 [facility] Comment on above: Performed By: #### L [id number] ####Tax Services Manager: VELMA VALADEZ ([phone])[address] IMMATURE GRANS ABSOLUTE 0.0 10*3/uL Normal <0.1 [facility] Comment on above: Performed By: #### L [id number] ####Tax Services Manager: VELMA VALADEZ ([phone])[facility])[address] [place] [address] Lymphocytes (Bld) [#/Vol] 1.4 10*3/uL Normal 1.0-4.3 [facility] Comment on above: Performed By: #### L [id number] ####Tax Services Manager: VELMA VALADEZ ([phone])[facility])[address] [place] [address] Lymphocytes/100 WBC (Bld) 32.9 % Normal 15.0-45.0 [facility] Comment on above: Performed By: #### L [id number] ####Tax Services Manager: VELMA VALADEZ ([phone])[facility])[address] [place] [address] MCH (RBC) [Entitic mass] 30.1 pg Normal 26.0-34.0 [facility] Comment on above: Performed By: #### L [id number] ####Tax Services Manager: VELMA VALADEZ ([phone])[facility])[address] [place] [address] MCHC 33.1 % Normal 30.5-36.0 [facility] Comment on above: Performed By: #### L [id number] ####Tax Services Manager: VELMA VALADEZ ([phone])[facility])[address] [place] [address] MCV (RBC) [Entitic vol] 90.9 fL Normal 77.0-99.0 [facility] Comment on above: Performed By: #### L [id number] ####Tax Services Manager: VELMA VALADEZ ([phone])[facility])[address] [place] [address] Monocytes (Bld) [#/Vol] 0.6 10*3/uL Normal 0.0-0.9 [facility] Comment on above: Performed By: #### L [id number] ####Tax Services Manager: VELMA VALADEZ ([phone])[facility] ([facility])[address] [place] [address] Monocytes/100 WBC (Bld) 13.6 % High 5.0-13.0 [facility] Comment on above: Performed By: #### L [id number] ####Tax Services Manager: VELMA VALADEZ ([phone])[facility] ([facility])[address] [place] [address] NEUTROPHILS ABSOLUTE 2.1 10*3/uL Normal 1.8-7.5 [facility] Comment on above: Performed By: #### L [id number] ####Tax Services Manager: VELMA VALADEZ ([phone])[facility] ([facility])[address] [place] [address] Neutrophils/100 WBC (Bld) 50.5 % Normal 38.0-82.0 [facility] Comment on above: Performed By: #### L [id number] ####Tax Services Manager: VELMA VALADEZ ([phone])[facility] ([facility])[address] [place] [address] NRBC 0.0 /100 WBCs Normal 0.0-2.0 [facility] Comment on above: Performed By: #### L [id number] ####Tax Services Manager: VELMA VALADEZ ([phone])[facility] ([facility])[address] [place] [address] Platelet mean volume (Bld) [Entitic vol] 10.0 fL Normal 9.0-12.7 [facility] Comment on above: Performed By: #### L [id number] ####Tax Services Manager: VELMA VALADEZ ([phone])[facility] ([facility])[address] [place] [address] Platelets (Bld) [#/Vol] 238 10*3/uL Normal 140-440 [facility] Comment on above: Performed By: #### L [id number] ####Tax Services Manager: VELMA VALADEZ ([phone])[facility] ([facility])[address] [place] [address] RBC (Bld) [#/Vol] 2.86 10*6/uL Low 3.80-5.20 [facility] Comment on above: Performed By: #### L [id number] ####Tax Services Manager: VELMA VALADEZ ([phone])[facility])[address] [place] [address] WBC (Bld) [#/Vol] 4.3 10*3/uL Normal 3.6-10.7 [facility] Comment on above: Performed By: #### L [id number] ####Tax Services Manager: VELMA VALADEZ ([phone])[facility])[address] [place] [address] IDNon 04-10-2024 IDN Normal [facility] Laboratory - Coagulationon 0 04-10-2024 PT Coag (Bld) [Time] 17.7 s High 9.0 - 1 2.0 s [facility] No Panel Informationon 04-10 Interpretation and review of laboratory results Abnormal [facility] PROTHROMBIN TIMEon INR Coag (PPP) [Relative time] 1.6 {INR} High 0.9-1.1 [facility] Comment on above: Result [...] Myocardial Infarction Performed By: #### L [id number], [id number] ####Tax Services Manager: VELMA VALADEZ ([phone])[facility])[address] [place] [address] PT Coag (PPP) [Time] 17.7 s High 9.0-12.0 [facility] Comment on above: Performed By: #### L [id number], [id number] ####Tax Services Manager: VELMA VALADEZ ([phone])[address] PT Coag (Bld) [Time]on 04-10 INR Coag (PPP) [Relative time] 1.6 {INR} High 0.9 - 1.1 [facility] Comment on above: Recommended Anticoag ulant [...] Infarction Progress Noteon 04-10-2024 Progress Note Normal [facility] Progress Note Nutrition update completed. Chart reviewed. Patient to be monitored and followed by the diet senior health physics technician. Jessica Doran, FADI Normal [facility] Progress Note Normal [facility] aPTT Coag (Bld) [Time]on aPTT Coag (PPP) [Time] 59.0 s High 20.0 - 30.5 s [facility] Interpretation and review of laboratory results Abnormal [facility] NOTE: The therapeuti c time for Heparin anticoagulation, based on Xa activity inhibition, is an APTT of 46-80 seconds. [facility] aPTT Coag (PPP) [Time] 77.3 s High 20.0 - 30.5 s [facility] NOTE: The therapeuti c time for Heparin anticoagulation, based on Xa activity inhibition, is an APTT of 46-80 seconds. [facility] APTTon 04-09-2024 aPTT Coag (Bld) [Time] 58.9 s High 20.0-30.5 [facility] Comment on above: Result Comment: BUBBA Garcia COMMENTS:NOTE: The therapeutic time for Heparin anticoagulation, based on Xa activity inhibition, is an APTT of 46-80 seconds. Performed By: #### L [id number] ####Tax Services Manager: VELMA VALADEZ ([phone])[facility])[address] [place] [address] aPTT Coag (Bld) [Time] 64.6 s High 20.0-30.5 [facility] Comment on above: Result Comment: BUBBA Garcia COMMENTS:NOTE: The therapeutic time for Heparin anticoagulation, based on Xa activity inhibition, is an APTT of 46-80 seconds. Performed By: #### L [id number] ####Tax Services Manager: VELMA VALADEZ ([phone])[facility])[address] [place] [address] aPTT Coag (Bld) [Time] 82.3 s High 20.0-30.5 [facility] Comment on above: Result Comment: BUBBA Garcia COMMENTS:NOTE: The therapeutic time for Heparin anticoagulation, based on Xa activity inhibition, is an APTT of 46-80 seconds. Performed By: #### L [id number], [id number] ####Tax Services Manager: VELMA VALADEZ ([phone])[facility])[address] [place] [address] BASIC METABOLIC PANELon 09-2 -2023 Anion gap [Moles/Vol] 5 mmol/L Normal 3-13 [facility] Comment on above: Performed By: #### L [id number] ####Tax Services Manager: VELMA VALADEZ ([phone])[address] Calcium [Mass/Vol] 8.9 mg/dL Normal 8.4-10.4 [facility] Comment on above: Performed By: #### L [id number] ####Tax Services Manager: VELMA VALADEZ ([phone])[facility])[address] [place] [address] Chloride [Moles/Vol] 116 mmol/L High 98-107 [facility] Comment on above: Performed By: #### L [id number] ####Tax Services Manager: VELMA VALADEZ ([phone])[facility])[address] [place] [address] CO2 [Moles/Vol] 16 mmol/L Low 22-30 [facility] Comment on above: Performed By: #### L [id number] ####Tax Services Manager: VELMA VALADEZ ([phone])[facility])[address] [place] [address] Creatinine [Mass/Vol] 0.93 mg/dL Normal 0.52-1.04 [facility] Comment on above: Performed By: #### L [id number] ####Tax Services Manager: VELMA VALADEZ ([phone])[facility])[address] [place] [address] [place] GLOMERULAR FILTRATION RATE ML/MIN/1.73 SQ M.PREDICTED 60.7 mL/min/1.73m*2 Normal >60.0 [facility] Comment on above: Result Comment: Calc ulation based on the Chronic Kidney Disease Epidemiology Collaboration (CKD-EPI) equation refit without adjustment for race Performed By: #### L [id number] ####Tax Services Manager: VELMA VALADEZ ([phone])[facility] ([facility])[address] [place] [address] Glucose [Mass/Vol] 119 mg/dL High 70-100 [facility] Comment on above: Performed By: #### L [id number] ####Tax Services Manager: VELMA VALADEZ ([phone])[facility])[address] [place] [address] Potassium [Moles/Vol] 4.4 mmol/L Normal 3.5-5.1 [facility] Comment on above: Performed By: #### L [id number] ####Tax Services Manager: VELMA VALADEZ ([phone])[facility])[address] [place] [address] [place] Sodium [Moles/Vol] 136 mmol/L Normal 135-145 [facility] Comment on above: Performed By: #### L AB15 ####Tax Services Manager: VELMA VALADEZ ([phone])[facility])[address] [place] [address] [place] Urea nitrogen [Mass/Vol] 16 mg/dL Normal 7-17 [facility] Comment on above: Performed By: #### L AB15 ####Tax Services Manager: VELMA VALADEZ ([phone])[facility] ([facility] Basic metabolic 1998 panelon 04-09-2024 Anion gap [Moles/Vol] 5 mmol/L 3 - 13 mmol/L [facility] Calcium [Mass/Vol] 8.9 mg/dL 8.4 - 10. 4 mg/dL [facility] Chloride [Moles/Vol] 116 mmol/L High 98 - 10 7 mmol/L [facility] CO2 [Moles/Vol] 16 mmol/L Low 22 - 30 mmol/L [facility] Creatinine [Mass/Vol] 0.93 mg/dL 0.52 - 1.04 mg/dL [facility] GFR/1.73 sq M.predicted (S/P/Bld) [Vol rate/Area] 60.7 mL/min - PINF [facility] Comment on above: Calculation based on the Chronic Kidney Disease Epidemiology Collaboration (CKD-EPI) equation refit without adjustment for race Glucose [Mass/Vol] 119 mg/dL High 70 - 100 mg/dL [facility] Interpretation and review of laboratory results Abnormal [facility] Potassium [Moles/Vol] 4.4 mmol/L 3.5 - 5.1 mmol/L [facility] Sodium [Moles/Vol] 136 mmol/L 135 - 145 mmol/L [facility] Urea nitrogen [Mass/Vol] 16 mg/dL 7 - 17 mg/dL [facility] CARECOORDon 04-09-2024 CARECOORD Normal [facility] CBC W Auto Differential pane l (Bld)on 04-09-2024 Basophils (Bld) [#/Vol] 0.0 10*3/uL 0.0 - 0.2 10*3/uL [facility] Basophils/100 WBC (Bld) 0.6 % 0.0 - 2.0 % [facility] Eosinophils (Bld) [#/Vol] 0.1 10*3/uL 0.0 - 0.5 10*3/uL [facility] Eosinophils/100 WBC (Bld) 0.9 % 0.0 - 6.0 % [facility] Erythrocyte distribution width (RBC) [Ratio] 14.8 % 11.5 - 15.0 % [facility] Hematocrit (Bld) [Volume fraction] 28.2 % Low 35.0 - 47.0 % [facility] Hemoglobin (Bld) [Mass/Vol] 9.0 g/dL Low 11.7 - 16.0 g/dL [facility] Immature granulocytes (Bld) [#/Vol] 0.0 10*3/uL NINF - 0.1 10*3/uL [facility] Immature granulocytes/100 WBC (Bld) 0.4 % 0.0 - 2.0 % [facility] Interpretation and review of laboratory results Abnormal [facility] Lymphocytes (Bld) [#/Vol] 2.2 10*3/uL 1.0 - 4.3 10*3/uL [facility] Lymphocytes/100 WBC (Bld) 31.2 % 15.0 - 45.0 % [facility] MCH (RBC) [Entitic mass] 29.8 pg 26.0 - 34.0 pg [facility] MCHC (RBC) [Mass/Vol] 31.9 % 30.5 - 36.0 % [facility] MCV (RBC) [Entitic vol] 93.4 fL 77.0 - 99.0 fL [facility] Monocytes (Bld) [#/Vol] 0.7 10*3/uL 0.0 - 0.9 10*3/uL [facility] Monocytes/100 WBC (Bld) 10.7 % 5.0 - 13.0 % [facility] Neutrophils (Bld) [#/Vol] 3.9 10*3/uL 1.8 - 7.5 10*3/uL [facility] Neutrophils/100 WBC (Bld) 56.2 % 38.0 - 82.0 % [facility] Nucleated RBC/100 WBC (Bld) [Ratio] 0.0 % [facility] Platelet mean volume (Bld) [Entitic vol] 10.2 fL 9.0 - 12.7 fL [facility] Platelets (Bld) [#/Vol] 235 10*3/uL 140 - 440 10*3/uL [facility] RBC (Bld) [#/Vol] 3.02 10*6/uL Low 3.80 - 5.2 0 10*6/uL [facility] WBC (Bld) [#/Vol] 6.9 10*3/uL 3.6 - 10.7 10*3/uL [facility] CBC WITH AUTO DIFFERENTIALon 04-09-2024 Basophils (Bld) [#/Vol] 0.0 10*3/uL Normal 0.0-0.2 [facility] Comment on above: Performed By: #### L [id number] ####Tax Services Manager: VELMA VALADEZ ([phone])[facility])[address] [place] [address] [place] Basophils/100 WBC (Bld) 0.6 % Normal 0.0-2.0 [facility] Comment on above: Performed By: #### L [id number] ####Tax Services Manager: VELMA VALADEZ ([phone])[facility])[address] [place] [address] Eosinophils (Bld) [#/Vol] 0.1 10*3/uL Normal 0.0-0.5 [facility] Comment on above: Performed By: #### L [id number] ####Tax Services Manager: VELMA VALADEZ ([phone])[facility] ([facility])[address] [place] [address] Eosinophils/100 WBC (Bld) 0.9 % Normal 0.0-6.0 [facility] Comment on above: Performed By: #### L [id number] ####Tax Services Manager: VELMA VALADEZ ([phone])[facility])[address] [place] [address] Erythrocyte distribution width (RBC) [Ratio] 14.8 % Normal 11.5-15.0 [facility] Comment on above: Performed By: #### L [id number] ####Tax Services Manager: VELMA VALADEZ ([phone])[facility])[address] [place] [address] Hematocrit (Bld) [Volume fraction] 28.2 % Low 35.0-47.0 [facility] Comment on above: Performed By: #### L [id number] ####Tax Services Manager: VELMA VALADEZ ([phone])[facility] Hemoglobin (Bld) [Mass/Vol] 9.0 g/dL Low 11.7-16.0 [facility] Comment on above: Performed By: #### L [id number] ####Tax Services Manager: VELMA VALADEZ ([phone])[facility])[address] [place] [address] IMMATURE GRANS % 0.4 % Normal 0.0-2.0 [facility] Comment on above: Performed By: #### L [id number] ####Tax Services Manager: VELMA VALADEZ ([phone])[address] IMMATURE GRANS ABSOLUTE 0.0 10*3/uL Normal <0.1 [facility] Comment on above: Performed By: #### L [id number] ####Tax Services Manager: VELMA VALADEZ ([phone])[facility])[address] [place] [address] Lymphocytes (Bld) [#/Vol] 2.2 10*3/uL Normal 1.0-4.3 [facility] Comment on above: Performed By: #### L [id number] ####Tax Services Manager: VELMA VALADEZ ([phone])[address] Lymphocytes/100 WBC (Bld) 31.2 % Normal 15.0-45.0 [facility] Comment on above: Performed By: #### L [id number] ####Tax Services Manager: VELMA VALADEZ ([phone])[facility])[address] [place] [address] MCH (RBC) [Entitic mass] 29.8 pg Normal 26.0-34.0 [facility] Comment on above: Performed By: #### L [id number] ####Tax Services Manager: VELMA VALADEZ ([phone])[facility])[address] [place] [address] MCHC 31.9 % Normal 30.5-36.0 [facility] Comment on above: Performed By: #### L [id number] ####Tax Services Manager: VELMA VALADEZ ([phone])[facility] ([facility])[address] [place] [address] MCV (RBC) [Entitic vol] 93.4 fL Normal 77.0-99.0 [facility] Comment on above: Performed By: #### L [id number] ####Tax Services Manager: VELMA VALADEZ ([phone])[facility] ([facility])[address] [place] [address] Monocytes (Bld) [#/Vol] 0.7 10*3/uL Normal 0.0-0.9 [facility] Comment on above: Performed By: #### L [id number] ####Tax Services Manager: VELMA VALADEZ ([phone])[facility])[address] [place] [address] Monocytes/100 WBC (Bld) 10.7 % Normal 5.0-13.0 [facility] Comment on above: Performed By: #### L [id number] ####Tax Services Manager: VELMA VALADEZ ([phone])[facility] ([facility])[address] [place] [address] NEUTROPHILS ABSOLUTE 3.9 10*3/uL Normal 1.8-7.5 [facility] Comment on above: Performed By: #### L [id number] ####Tax Services Manager: VELMA VALADEZ ([phone])[facility])[address] [place] [address] Neutrophils/100 WBC (Bld) 56.2 % Normal 38.0-82.0 [facility] Comment on above: Performed By: #### L [id number] ####Tax Services Manager: VELMA VALADEZ ([phone])[facility])[address] [place] [address] NRBC 0.0 /100 WBCs Normal 0.0-2.0 [facility] Comment on above: Performed By: #### L [id number] ####Tax Services Manager: VELMA VALADEZ ([phone])[facility] ([facility])[address] [place] [address] Platelet mean volume (Bld) [Entitic vol] 10.2 fL Normal 9.0-12.7 [facility] Comment on above: Performed By: #### L [id number] ####Tax Services Manager: VELMA VALADEZ ([phone])[facility])[address] [place] [address] Platelets (Bld) [#/Vol] 235 10*3/uL Normal 140-440 [facility] Comment on above: Performed By: #### L [id number] ####Tax Services Manager: VELMA VALADEZ ([phone])[facility])[address] [place] [address] RBC (Bld) [#/Vol] 3.02 10*6/uL Low 3.80-5.20 [facility] Comment on above: Performed By: #### L [id number] ####Tax Services Manager: VELMA VALADEZ ([phone])[facility] ([facility])[address] [place] [address] WBC (Bld) [#/Vol] 6.9 10*3/uL Normal 3.6-10.7 [facility] Comment on above: Performed By: #### L [id number] ####Tax Services Manager: VELMA VALADEZ ([phone])[facility])[address] [place] [address] Laboratory - Coagulationon 0 04-09-2024 PT Coag (Bld) [Time] 13.8 s High 9.0 - 1 2.0 s [facility] No Panel Informationon 04-09 Interpretation and review of laboratory results Abnormal [facility] PROTHROMBIN TIMEon INR Coag (PPP) [Relative time] 1.2 {INR} High 0.9-1.1 [facility] Comment on above: Result [...] Myocardial Infarction Performed By: #### L [id number], [id number] ####Tax Services Manager: VELMA VALADEZ ([phone])[facility] ([facility])[address] [place] [address] PT Coag (PPP) [Time] 13.8 s High 9.0-12.0 [facility] Comment on above: Performed By: #### L [id number], [id number] ####Tax Services Manager: VELMA VALADEZ ([phone])[facility] ([facility])[address] [place] [address] PT Coag (Bld) [Time]on 04-09 INR Coag (PPP) [Relative time] 1.2 {INR} High 0.9 - 1.1 [facility] Comment on above: Recommended Anticoag ulant [...] Infarction Progress Noteon 04-09-2024 Progress Note Normal [facility] Progress Note Normal [facility] XR CHEST 1 VIEWon 04-09-2024 XR CHEST 1 VIEW Normal [facility] XR Chest Single viewon 04-09 Mild cardiomegaly and pulmonary venous congestion with small pleural effusions. Report Dictated on Electronically Signed By: Di Leggett MD Electronically Signed Date/Time: 04/09/2024 1:42 PM [facility] [employer] Patient Name: MEL CARVER RD : [...] the left shoulder. No acute osseous findings. [facility] Di Leggett M D - 04/09/2024 [facility]LE [facility] 1940 [id number] Exam Date/Time: 04/09/2024 14:11 Procedure: XR CHEST [...] Electronically Signed Date/Time: 04/09/2024 1:42 PM EDT [facility] Radiology Study observation (narrative) [facility] alth XR Chest Single viewOrdered By: Di Leggett on 04-09-2024 [facility] [employer] Work Phone: aPTT Coag (Bld) [Time]on aPTT Coag (PPP) [Time] 58.9 s High 20.0 - 30.5 s [facility] Interpretation and review of laboratory results Abnormal [facility] NOTE: The therapeuti c time for Heparin anticoagulation, based on Xa activity inhibition, is an APTT of 46-80 seconds. [facility] aPTT Coag (PPP) [Time] 64.6 s High 20.0 - 30.5 s [facility] Interpretation and review of laboratory results Abnormal [facility] NOTE: The therapeuti c time for Heparin anticoagulation, based on Xa activity inhibition, is an APTT of 46-80 seconds. [facility] aPTT Coag (PPP) [Time] 82.3 s High 20.0 - 30.5 s [facility] NOTE: The therapeuti c time for Heparin anticoagulation, based on Xa activity inhibition, is an APTT of 46-80 seconds. [facility] APTTon 04-08-2024 aPTT Coag (Bld) [Time] 51.5 s High 20.0-30.5 [facility] Comment on above: Result Comment: BUBBA Garcia COMMENTS:NOTE: The therapeutic time for Heparin anticoagulation, based on Xa activity inhibition, is an APTT of 46-80 seconds. Performed By: #### L [id number] ####Tax Services Manager: VELMA VALADEZ ([phone])[address] aPTT Coag (Bld) [Time] 59.8 s High 20.0-30.5 [facility] Comment on above: Result Comment: BUBBA Garcia COMMENTS:NOTE: The therapeutic time for Heparin anticoagulation, based on Xa activity inhibition, is an APTT of 46-80 seconds. Performed By: #### L [id number] ####Tax Services Manager: VELMA VALADEZ ([phone])[address] aPTT Coag (Bld) [Time] 41.4 s High 20.0-30.5 [facility] Comment on above: Result Comment: BUBBA Garcia COMMENTS:NOTE: The therapeutic time for Heparin anticoagulation, based on Xa activity inhibition, is an APTT of 46-80 seconds. Performed By: #### L [id number], [id number] ####Tax Services Manager: VELMA VALADEZ ([phone])[facility] [place] [address] BASIC METABOLIC PANELon 03-19 Anion gap [Moles/Vol] 5 mmol/L Normal 3-13 [facility] Comment on above: Performed By: #### L AB15 ####Tax Services Manager: VELMA VALADEZ ([phone])[facility] [place] [address] Calcium [Mass/Vol] 8.9 mg/dL Normal 8.4-10.4 [facility] Comment on above: Performed By: #### L AB15 ####Tax Services Manager: VELMA VALADEZ ([phone])[facility] [place] [address] Chloride [Moles/Vol] 113 mmol/L High 98-107 [facility] Comment on above: Performed By: #### L AB15 ####Tax Services Manager: VELMA VALADEZ ([phone])[facility] ([facility])[address] [place] [address] CO2 [Moles/Vol] 17 mmol/L Low 22-30 [facility] Comment on above: Performed By: #### L AB15 ####Tax Services Manager: VELMA VALADEZ ([phone])[facility] [place] [address] Creatinine [Mass/Vol] 0.98 mg/dL Normal 0.52-1.04 [facility] Comment on above: Performed By: #### L AB15 ####Tax Services Manager: VELMA VALADEZ ([phone])[facility] [place] [address] [place] GLOMERULAR FILTRATION RATE ML/MIN/1.73 SQ M.PREDICTED 57.0 mL/min/1.73m*2 Low >60.0 [facility] Comment on above: Result Comment: Calc ulation based on the Chronic Kidney Disease Epidemiology Collaboration (CKD-EPI) equation refit without adjustment for race Performed By: #### L AB15 ####Tax Services Manager: VELMA VALADEZ ([phone])[facility] [place] [address] Glucose [Mass/Vol] 116 mg/dL High 70-100 [facility] Comment on above: Performed By: #### L [id number] ####Tax Services Manager: VELMA VALADEZ ([phone])[facility] ([facility])[address] [place] [address] Potassium [Moles/Vol] 4.5 mmol/L Normal 3.5-5.1 [facility] Comment on above: Performed By: #### L [id number] ####Tax Services Manager: VELMA VALADEZ ([phone])[facility] [place] [address] Sodium [Moles/Vol] 135 mmol/L Normal 135-145 [facility] Comment on above: Performed By: #### L [id number] ####Tax Services Manager: VELMA VALADEZ ([phone])[facility] [place] [address] Urea nitrogen [Mass/Vol] 18 mg/dL High 7-17 [facility] Comment on above: Performed By: #### L [id number] ####Tax Services Manager: VELMA VALADEZ ([phone])[facility] ([facility])[address] [place] [address] Basic metabolic 1998 panelon 04-08-2024 Anion gap [Moles/Vol] 5 mmol/L 3 - 13 mmol/L [facility] Calcium [Mass/Vol] 8.9 mg/dL 8.4 - 10. 4 mg/dL [facility] Chloride [Moles/Vol] 113 mmol/L High 98 - 10 7 mmol/L [facility] CO2 [Moles/Vol] 17 mmol/L Low 22 - 30 mmol/L [facility] Creatinine [Mass/Vol] 0.98 mg/dL 0.52 - 1.04 mg/dL [facility] GFR/1.73 sq M.predicted (S/P/Bld) [Vol rate/Area] 57.0 mL/min Low - PINF [facility] Comment on above: Calculation based on the Chronic Kidney Disease Epidemiology Collaboration (CKD-EPI) equation refit without adjustment for race Glucose [Mass/Vol] 116 mg/dL High 70 - 100 mg/dL [facility] Interpretation and review of laboratory results Abnormal [facility] Potassium [Moles/Vol] 4.5 mmol/L 3.5 - 5.1 mmol/L [facility] Sodium [Moles/Vol] 135 mmol/L 135 - 145 mmol/L [facility] Urea nitrogen [Mass/Vol] 18 mg/dL High 7 - 17 mg/dL [facility] CBC W Auto Differential pane l (Bld)on 04-08-2024 Basophils (Bld) [#/Vol] 0.0 10*3/uL 0.0 - 0.2 10*3/uL [facility] Basophils/100 WBC (Bld) 0.5 % 0.0 - 2.0 % [facility] Eosinophils (Bld) [#/Vol] 0.1 10*3/uL 0.0 - 0.5 10*3/uL [facility] Eosinophils/100 WBC (Bld) 0.9 % 0.0 - 6.0 % [facility] Erythrocyte distribution width (RBC) [Ratio] 14.8 % 11.5 - 15.0 % [facility] Hematocrit (Bld) [Volume fraction] 27.0 % Low 35.0 - 47.0 % [facility] Hemoglobin (Bld) [Mass/Vol] 8.6 g/dL Low 11.7 - 16.0 g/dL [facility] Immature granulocytes (Bld) [#/Vol] 0.0 10*3/uL NINF - 0.1 10*3/uL [facility] Immature granulocytes/100 WBC (Bld) 0.4 % 0.0 - 2.0 % [facility] Interpretation and review of laboratory results Abnormal [facility] Lymphocytes (Bld) [#/Vol] 1.7 10*3/uL 1.0 - 4.3 10*3/uL [facility] Lymphocytes/100 WBC (Bld) 23.3 % 15.0 - 45.0 % [facility] MCH (RBC) [Entitic mass] 30.2 pg 26.0 - 34.0 pg [facility] MCHC (RBC) [Mass/Vol] 31.9 % 30.5 - 36.0 % [facility] MCV (RBC) [Entitic vol] 94.7 fL 77.0 - 99.0 fL [facility] Monocytes (Bld) [#/Vol] 0.8 10*3/uL 0.0 - 0.9 10*3/uL [facility] Monocytes/100 WBC (Bld) 10.2 % 5.0 - 13.0 % [facility] Neutrophils (Bld) [#/Vol] 4.8 10*3/uL 1.8 - 7.5 10*3/uL [facility] Neutrophils/100 WBC (Bld) 64.7 % 38.0 - 82.0 % [facility] Nucleated RBC/100 WBC (Bld) [Ratio] 0.0 % [facility] Platelet mean volume (Bld) [Entitic vol] 10.1 fL 9.0 - 12.7 fL [facility] Platelets (Bld) [#/Vol] 223 10*3/uL 140 - 440 10*3/uL [facility] RBC (Bld) [#/Vol] 2.85 10*6/uL Low 3.80 - 5.2 0 10*6/uL [facility] WBC (Bld) [#/Vol] 7.5 10*3/uL 3.6 - 10.7 10*3/uL [facility] CBC WITH AUTO DIFFERENTIALon 04-08-2024 Basophils (Bld) [#/Vol] 0.0 10*3/uL Normal 0.0-0.2 [facility] Comment on above: Performed By: #### L [id number] ####Tax Services Manager: VELMA [phone])[address] Basophils/100 WBC (Bld) 0.5 % Normal 0.0-2.0 [facility] Comment on above: Performed By: #### L [id number] ####Tax Services Manager: EVLMA [phone])[facility] ([facility])[address] [place] [address] Eosinophils (Bld) [#/Vol] 0.1 10*3/uL Normal 0.0-0.5 [facility] Comment on above: Performed By: #### L [id number] ####Tax Services Manager: VELMA [phone])[facility])[address] [place] [address] Eosinophils/100 WBC (Bld) 0.9 % Normal 0.0-6.0 [facility] Comment on above: Performed By: #### L [id number] ####Tax Services Manager: VELMA VALADEZ ([phone])[facility])[address] [place] [address] Erythrocyte distribution width (RBC) [Ratio] 14.8 % Normal 11.5-15.0 [facility] Comment on above: Performed By: #### L [id number] ####Tax Services Manager: VELMA VALADEZ ([phone])[facility])[address] [place] [address] Hematocrit (Bld) [Volume fraction] 27.0 % Low 35.0-47.0 [facility] Comment on above: Performed By: #### L [id number] ####Tax Services Manager: VELMA VALADEZ ([phone])[facility])[address] [place] [address] Hemoglobin (Bld) [Mass/Vol] 8.6 g/dL Low 11.7-16.0 [facility] Comment on above: Performed By: #### L [id number] ####Tax Services Manager: VELMA VALADEZ ([phone])[facility])[address] [place] [address] IMMATURE GRANS % 0.4 % Normal 0.0-2.0 [facility] Comment on above: Performed By: #### L [id number] ####Tax Services Manager: VELMA VALADEZ ([phone])[facility])[address] [place] [address] IMMATURE GRANS ABSOLUTE 0.0 10*3/uL Normal <0.1 [facility] Comment on above: Performed By: #### L [id number] ####Tax Services Manager: VELMA VALADEZ ([phone])[facility])[address] [place] [address] Lymphocytes (Bld) [#/Vol] 1.7 10*3/uL Normal 1.0-4.3 [facility] Comment on above: Performed By: #### L [id number] ####Tax Services Manager: VELMA VALADEZ ([phone])[facility])[address] [place] [address] Lymphocytes/100 WBC (Bld) 23.3 % Normal 15.0-45.0 [facility] Comment on above: Performed By: #### L [id number] ####Tax Services Manager: VELMA VALADEZ ([phone])[facility])[address] [place] [address] MCH (RBC) [Entitic mass] 30.2 pg Normal 26.0-34.0 [facility] Comment on above: Performed By: #### L [id number] ####Tax Services Manager: VELMA VALADEZ ([phone])[facility])[address] [place] [address] MCHC 31.9 % Normal 30.5-36.0 [facility] Comment on above: Performed By: #### L [id number] ####Tax Services Manager: VELMA VALADEZ ([phone])[facility])[address] [place] [address] MCV (RBC) [Entitic vol] 94.7 fL Normal 77.0-99.0 [facility] Comment on above: Performed By: #### L [id number] ####Tax Services Manager: VELMA VALADEZ ([phone])[facility])[address] [place] [address] Monocytes (Bld) [#/Vol] 0.8 10*3/uL Normal 0.0-0.9 [facility] Comment on above: Performed By: #### L [id number] ####Tax Services Manager: VELMA VALADEZ ([phone])[facility])[address] [place] [address] Monocytes/100 WBC (Bld) 10.2 % Normal 5.0-13.0 [facility] Comment on above: Performed By: #### L [id number] ####Tax Services Manager: VELMA VALADEZ ([phone])[facility] ([facility])[address] [place] [address] NEUTROPHILS ABSOLUTE 4.8 10*3/uL Normal 1.8-7.5 [facility] Comment on above: Performed By: #### L [id number] ####Tax Services Manager: VELMA VALADEZ ([phone])[facility] ([facility])[address] [place] [address] Neutrophils/100 WBC (Bld) 64.7 % Normal 38.0-82.0 [facility] Comment on above: Performed By: #### L [id number] ####Tax Services Manager: VELMA VALADEZ ([phone])[facility])[address] [place] [address] NRBC 0.0 /100 WBCs Normal 0.0-2.0 [facility] Comment on above: Performed By: #### L [id number] ####Tax Services Manager: VELMA VALADEZ ([phone])[facility] ([facility])[address] [place] [address] Platelet mean volume (Bld) [Entitic vol] 10.1 fL Normal 9.0-12.7 [facility] Comment on above: Performed By: #### L [id number] ####Tax Services Manager: VELMA VALADEZ ([phone])[facility])[address] [place] [address] Platelets (Bld) [#/Vol] 223 10*3/uL Normal 140-440 [facility] Comment on above: Performed By: #### L [id number] ####Tax Services Manager: VELMA VALADEZ ([phone])[facility] ([facility])[address] [place] [address] RBC (Bld) [#/Vol] 2.85 10*6/uL Low 3.80-5.20 [facility] Comment on above: Performed By: #### L [id number] ####Tax Services Manager: VELMA VALADEZ ([phone])[facility])[address] [place] [address] WBC (Bld) [#/Vol] 7.5 10*3/uL Normal 3.6-10.7 [facility] Comment on above: Performed By: #### [place] [id number] ####Tax Services Manager: VELMA VALADEZ ([phone])[facility])[address] [place] [address] [place] IDNon 04-08-2024 IDN Progressing Normal [facility] - Coagulationon 0 04-08-2024 PT Coag (Bld) [Time] 11.2 s 9.0 - 1 2.0 s [facility] No Panel Informationon 04-08 [facility] PROTHROMBIN TIMEon INR Coag (PPP) [Relative time] 1.0 {INR} Normal 0.9-1.1 [facility] Comment on above: Result [...] Myocardial Infarction Performed By: #### [place] [id number], [id number] ####Tax Services Manager: VELMA VALADEZ ([phone])[facility] ([facility])[address] [place] [address] PT Coag (PPP) [Time] 11.2 s Normal 9.0-12.0 [facility] Comment on above: Performed By: #### [place] [id number], [id number] ####Tax Services Manager: VELMA VALADEZ ([phone])[facility])[address] [place] [address] PT Coag (Bld) [Time]on 04-08 INR Coag (PPP) [Relative time] 1.0 {INR} 0.9 - 1.1 [facility] Comment on above: Recommended Anticoag ulant [...] review of laboratory results Normal [facility] Progress Noteon 04-08-2024 Progress Note Normal [facility] Progress Note Normal [facility] aPTT Coag (Bld) [Time]on aPTT Coag (PPP) [Time] 51.5 s High 20.0 - 30.5 s [facility] Interpretation and review of laboratory results Abnormal [facility] NOTE: The therapeuti c time for Heparin anticoagulation, based on Xa activity inhibition, is an APTT of 46-80 seconds. [facility] aPTT Coag (PPP) [Time] 59.8 s High 20.0 - 30.5 s [facility] Interpretation and review of laboratory results Abnormal [facility] NOTE: The therapeuti c time for Heparin anticoagulation, based on Xa activity inhibition, is an APTT of 46-80 seconds. [facility] aPTT Coag (PPP) [Time] 41.4 s High 20.0 - 30.5 s [facility] Interpretation and review of laboratory results Abnormal [facility] NOTE: The therapeuti c time for Heparin anticoagulation, based on Xa activity inhibition, is an APTT of 46-80 seconds. [facility] APTTon 04-07-2024 aPTT Coag (Bld) [Time] 54.7 s High 20.0-30.5 [facility] Comment on above: Result Comment: BUBBA Garcia COMMENTS:NOTE: The therapeutic time for Heparin anticoagulation, based on Xa activity inhibition, is an APTT of 46-80 seconds. Performed By: #### L [id number] ####Tax Services Manager: VELMA VALADEZ ([phone])[facility] ([id number] aPTT Coag (Bld) [Time] 77.7 s High 20.0-30.5 [facility] Comment on above: Result Comment: BUBBA Garcia COMMENTS:NOTE: The therapeutic time for Heparin anticoagulation, based on Xa activity inhibition, is an APTT of 46-80 seconds. Performed By: #### L [id number], [id number] ####Tax Services Manager: VELMA VALADEZ ([phone])[facility] ([facility])[address] [place] [address] BASIC METABOLIC PANELon 09-2 Anion gap [Moles/Vol] 4 mmol/L Normal 3-13 [facility] Comment on above: Performed By: #### L [id number] ####Tax Services Manager: VELMA VALADEZ ([phone])[facility] ([facility])[address] [place] [address] Calcium [Mass/Vol] 8.8 mg/dL Normal 8.4-10.4 [facility] Comment on above: Performed By: #### L AB15 ####Tax Services Manager: VELMA VALADEZ ([phone])[facility])[address] [place] [address] [place] Chloride [Moles/Vol] 115 mmol/L High 98-107 [facility] Comment on above: Performed By: #### L [id number] ####Tax Services Manager: VELMA VALADEZ ([phone])[facility] ([facility])[address] [place] [address] [place] CO2 [Moles/Vol] 17 mmol/L Low 22-30 [facility] Comment on above: Performed By: #### L AB15 ####Tax Services Manager: VELMA VALADEZ ([phone])[facility] ([facility])[address] [place] [address] [place] Creatinine [Mass/Vol] 0.90 mg/dL Normal 0.52-1.04 [facility] Comment on above: Performed By: #### L AB15 ####Tax Services Manager: VELMA VALADEZ ([phone])[facility] ([facility])[address] [place] [address] [place] GLOMERULAR FILTRATION RATE ML/MIN/1.73 SQ M.PREDICTED 63.2 mL/min/1.73m*2 Normal >60.0 [facility] Comment on above: Result Comment: Calc ulation based on the Chronic Kidney Disease Epidemiology Collaboration (CKD-EPI) equation refit without adjustment for race Performed By: #### L AB15 ####Tax Services Manager: VELMA VALADEZ ([phone])[facility] ([facility])[address] [place] [address] Glucose [Mass/Vol] 139 mg/dL High 70-100 [facility] Comment on above: Performed By: #### L [id number] ####Tax Services Manager: VELMA VALADEZ ([phone])[facility] ([facility])[address] [place] [address] Potassium [Moles/Vol] 4.7 mmol/L Normal 3.5-5.1 [facility] Comment on above: Performed By: #### L AB15 ####Tax Services Manager: VELMA VALADEZ ([phone])[facility] ([facility])[address] [place] [address] Sodium [Moles/Vol] 136 mmol/L Normal 135-145 [facility] Comment on above: Performed By: #### L AB15 ####Tax Services Manager: VELMA VALADEZ ([phone])[facility])[address] [place] [address] Urea nitrogen [Mass/Vol] 16 mg/dL Normal 7-17 [facility] Comment on above: Performed By: #### L [id number] ####Tax Services Manager: VELMA VALADEZ ([phone])[facility])[address] [place] [address] Basic metabolic 1998 panelon 04-07-2024 Anion gap [Moles/Vol] 4 mmol/L 3 - 13 mmol/L [facility] Calcium [Mass/Vol] 8.8 mg/dL 8.4 - 10. 4 mg/dL [facility] Chloride [Moles/Vol] 115 mmol/L High 98 - 10 7 mmol/L [facility] CO2 [Moles/Vol] 17 mmol/L Low 22 - 30 mmol/L [facility] Creatinine [Mass/Vol] 0.90 mg/dL 0.52 - 1.04 mg/dL [facility] [employer] GFR/1.73 sq M.predicted (S/P/Bld) [Vol rate/Area] 63.2 mL/min - PINF [facility] Comment on above: Calculation based on the Chronic Kidney Disease Epidemiology Collaboration (CKD-EPI) equation refit without adjustment for race Glucose [Mass/Vol] 139 mg/dL High 70 - 100 mg/dL [facility] Interpretation and review of laboratory results Abnormal [facility] [employer] Potassium [Moles/Vol] 4.7 mmol/L 3.5 - 5.1 mmol/L [facility] Sodium [Moles/Vol] 136 mmol/L 135 - 145 mmol/L [facility] Urea nitrogen [Mass/Vol] 16 mg/dL 7 - 17 mg/dL [facility] CBC W Auto Differential pane l (Bld)on 04-07-2024 Basophils (Bld) [#/Vol] 0.0 10*3/uL 0.0 - 0.2 10*3/uL [facility] [employer] Basophils/100 WBC (Bld) 0.2 % 0.0 - 2.0 % [facility] Eosinophils (Bld) [#/Vol] 0.0 10*3/uL 0.0 - 0.5 10*3/uL [facility] Eosinophils/100 WBC (Bld) 0.0 % 0.0 - 6.0 % [facility] Erythrocyte distribution width (RBC) [Ratio] 14.3 % 11.5 - 15.0 % [facility] Hematocrit (Bld) [Volume fraction] 27.0 % Low 35.0 - 47.0 % [facility] Hemoglobin (Bld) [Mass/Vol] 8.6 g/dL Low 11.7 - 16.0 g/dL [facility] Immature granulocytes (Bld) [#/Vol] 0.0 10*3/uL NINF - 0.1 10*3/uL [facility] [employer] Immature granulocytes/100 WBC (Bld) 0.5 % 0.0 - 2.0 % [facility] Interpretation and review of laboratory results Abnormal [facility] Lymphocytes (Bld) [#/Vol] 0.8 10*3/uL Low 1.0 - 4.3 10*3/uL [facility] [employer] Lymphocytes/100 WBC (Bld) 19.2 % 15.0 - 45.0 % [facility] MCH (RBC) [Entitic mass] 30.1 pg 26.0 - 34.0 pg [facility] MCHC (RBC) [Mass/Vol] 31.9 % 30.5 - 36.0 % [facility] MCV (RBC) [Entitic vol] 94.4 fL 77.0 - 99.0 fL [facility] Monocytes (Bld) [#/Vol] 0.3 10*3/uL 0.0 - 0.9 10*3/uL [facility] Monocytes/100 WBC (Bld) 7.5 % 5.0 - 13.0 % [facility] Neutrophils (Bld) [#/Vol] 2.9 10*3/uL 1.8 - 7.5 10*3/uL [facility] Neutrophils/100 WBC (Bld) 72.6 % 38.0 - 82.0 % [facility] Nucleated RBC/100 WBC (Bld) [Ratio] 0.0 % [facility] Platelet mean volume (Bld) [Entitic vol] 10.5 fL 9.0 - 12.7 fL [facility] Platelets (Bld) [#/Vol] 202 10*3/uL 140 - 440 10*3/uL [facility] RBC (Bld) [#/Vol] 2.86 10*6/uL Low 3.80 - 5.2 0 10*6/uL [facility] WBC (Bld) [#/Vol] 4.0 10*3/uL 3.6 - 10.7 10*3/uL [facility] CBC WITH AUTO DIFFERENTIALon 04-07-2024 Basophils (Bld) [#/Vol] 0.0 10*3/uL Normal 0.0-0.2 [facility] Comment on above: Performed By: #### L [id number] ####Tax Services Manager: VELMA VALADEZ ([phone])[facility] ([facility])[address] [place] [address] [place] Basophils/100 WBC (Bld) 0.2 % Normal 0.0-2.0 [facility] Comment on above: Performed By: #### L [id number] ####Tax Services Manager: VELMA VALADEZ ([phone])[facility] ([address] Eosinophils (Bld) [#/Vol] 0.0 10*3/uL Normal 0.0-0.5 [facility] Comment on above: Performed By: #### L [id number] ####Tax Services Manager: VELMA VALADEZ ([phone])[facility])[address] [place] [address] Eosinophils/100 WBC (Bld) 0.0 % Normal 0.0-6.0 [facility] Comment on above: Performed By: #### L [id number] ####Tax Services Manager: VELMA VALADEZ ([phone])[facility])[address] [place] [address] Erythrocyte distribution width (RBC) [Ratio] 14.3 % Normal 11.5-15.0 [facility] Comment on above: Performed By: #### L [id number] ####Tax Services Manager: VELMA VALADEZ ([phone])[facility])[address] [place] [address] Hematocrit (Bld) [Volume fraction] 27.0 % Low 35.0-47.0 [facility] Comment on above: Performed By: #### L [id number] ####Tax Services Manager: VELMA VALADEZ ([phone])[address] Hemoglobin (Bld) [Mass/Vol] 8.6 g/dL Low 11.7-16.0 [facility] Comment on above: Performed By: #### L [id number] ####Tax Services Manager: VELMA VALADEZ ([phone])[facility])[address] [place] [address] IMMATURE GRANS % 0.5 % Normal 0.0-2.0 [facility] Comment on above: Performed By: #### L [id number] ####Tax Services Manager: VELMA VALADEZ ([phone])[facility])[address] [place] [address] IMMATURE GRANS ABSOLUTE 0.0 10*3/uL Normal <0.1 [facility] Comment on above: Performed By: #### L [id number] ####Tax Services Manager: VELMA VALADEZ ([phone])[facility])[address] [place] [address] Lymphocytes (Bld) [#/Vol] 0.8 10*3/uL Low 1.0-4.3 [facility] Comment on above: Performed By: #### L [id number] ####Tax Services Manager: VELMA VALADEZ ([phone])[facility])[address] [place] [address] Lymphocytes/100 WBC (Bld) 19.2 % Normal 15.0-45.0 [facility] Comment on above: Performed By: #### L [id number] ####Tax Services Manager: VELMA VALADEZ ([phone])[facility])[address] [place] [address] MCH (RBC) [Entitic mass] 30.1 pg Normal 26.0-34.0 [facility] Comment on above: Performed By: #### L [id number] ####Tax Services Manager: VELMA VALADEZ ([phone])[facility])[address] [place] [address] MCHC 31.9 % Normal 30.5-36.0 [facility] Comment on above: Performed By: #### L [id number] ####Tax Services Manager: VELMA VALADEZ ([phone])[facility])[address] [place] [address] MCV (RBC) [Entitic vol] 94.4 fL Normal 77.0-99.0 [facility] Comment on above: Performed By: #### L [id number] ####Tax Services Manager: VELMA VALADEZ ([phone])[facility])[address] [place] [address] Monocytes (Bld) [#/Vol] 0.3 10*3/uL Normal 0.0-0.9 [facility] Comment on above: Performed By: #### L [id number] ####Tax Services Manager: VELMA VALADEZ ([phone])[facility] ([facility])[address] [place] [address] Monocytes/100 WBC (Bld) 7.5 % Normal 5.0-13.0 [facility] Comment on above: Performed By: #### L [id number] ####Tax Services Manager: VELMA VALADEZ ([phone])[facility] ([facility])[address] [place] [address] NEUTROPHILS ABSOLUTE 2.9 10*3/uL Normal 1.8-7.5 [facility] Comment on above: Performed By: #### L [id number] ####Tax Services Manager: VELMA VALADEZ ([phone])[facility] ([facility])[address] [place] [address] Neutrophils/100 WBC (Bld) 72.6 % Normal 38.0-82.0 [facility] Comment on above: Performed By: #### L [id number] ####Tax Services Manager: VELMA VALADEZ ([phone])[facility] ([facility])[address] [place] [address] NRBC 0.0 /100 WBCs Normal 0.0-2.0 [facility] Comment on above: Performed By: #### L [id number] ####Tax Services Manager: VELMA VALADEZ ([phone])[facility] ([facility])[address] [place] [address] Platelet mean volume (Bld) [Entitic vol] 10.5 fL Normal 9.0-12.7 [facility] Comment on above: Performed By: #### L [id number] ####Tax Services Manager: VELMA VALADEZ ([phone])[facility] ([facility])[address] [place] [address] [place] Platelets (Bld) [#/Vol] 202 10*3/uL Normal 140-440 [facility] Comment on above: Performed By: #### L [id number] ####Tax Services Manager: VELMA VALADEZ ([phone])[facility] ([facility])[address] [place] [address] RBC (Bld) [#/Vol] 2.86 10*6/uL Low 3.80-5.20 [facility] Comment on above: Performed By: #### L [id number] ####Tax Services Manager: VELMA VALADEZ ([phone])[facility])[address] [place] [address] WBC (Bld) [#/Vol] 4.0 10*3/uL Normal 3.6-10.7 [facility] Comment on above: Performed By: #### L [id number] ####Tax Services Manager: VELMA VALADEZ ([phone])[facility])[address] [place] [address] IDNon 04-07-2024 IDN Normal [facility] Laboratory - Coagulationon 0 04-07-2024 PT Coag (Bld) [Time] 11.1 s 9.0 - 1 2.0 s [facility] No Panel Informationon 04-07 [facility] Nursing Noteon 04-07-2024 Nursing Note NO changes to hepari n infusion at this time. Normal [facility] PROTHROMBIN TIMEon INR Coag (PPP) [Relative time] 1.0 {INR} Normal 0.9-1.1 [facility] Comment on above: Result [...] Myocardial Infarction Performed By: #### L [id number], [id number] ####Tax Services Manager: VELMA VALADEZ ([phone])[facility])[address] [place] [address] PT Coag (PPP) [Time] 11.1 s Normal 9.0-12.0 [facility] Comment on above: Performed By: #### L [id number], [id number] ####Tax Services Manager: VELMA VALADEZ ([phone])[facility] ([id number] PT Coag (Bld) [Time]on 04-07 INR Coag (PPP) [Relative time] 1.0 {INR} 0.9 - 1.1 [facility] Comment on above: Recommended Anticoag ulant [...] review of laboratory results Normal [facility] Progress Noteon 04-07-2024 Progress Note Normal [facility] Progress Note Normal [facility] Progress Note Normal [facility] aPTT Coag (Bld) [Time]on aPTT Coag (PPP) [Time] 54.7 s High 20.0 - 30.5 s [facility] Interpretation and review of laboratory results Abnormal [facility] NOTE: The therapeuti c time for Heparin anticoagulation, based on Xa activity inhibition, is an APTT of 46-80 seconds. [facility] aPTT Coag (PPP) [Time] 77.7 s High 20.0 - 30.5 s [facility] Interpretation and review of laboratory results Abnormal [facility] NOTE: The therapeuti c time for Heparin anticoagulation, based on Xa activity inhibition, is an APTT of 46-80 seconds. [facility] [id number] 04-06-2024 [id number] Normal [facility] APTTon 04-06-2024 aPTT Coag (Bld) [Time] 43.3 s High 20.0-30.5 [facility] Comment on above: Result Comment: BUBBA Garcia COMMENTS:NOTE: The therapeutic time for Heparin anticoagulation, based on Xa activity inhibition, is an APTT of 46-80 seconds. Performed By: #### L [id number] ####Tax Services Manager: VELMA VALADEZ ([phone])[facility])[address] [place] [address] aPTT Coag (Bld) [Time] 97.6 s High 20.0-30.5 [facility] Comment on above: Result Comment: BUBBA Garcia COMMENTS:NOTE: The therapeutic time for Heparin anticoagulation, based on Xa activity inhibition, is an APTT of 46-80 seconds. Performed By: #### L [id number] ####Tax Services Manager: VELMA VALADEZ ([phone])[facility])[address] [place] [address] Anesthesia Noteon 04-06-2024 Anesthesia Note Normal [facility] Anesthesia Note Normal [facility] BASIC METABOLIC PANELon 03-19 Anion gap [Moles/Vol] 4 mmol/L Normal 3-13 [facility] Comment on above: Performed By: #### L AB15 ####Tax Services Manager: VELMA VALADEZ ([phone])[facility] ([facility])[address] [place] [address] Calcium [Mass/Vol] 8.9 mg/dL Normal 8.4-10.4 [facility] Comment on above: Performed By: #### L AB15 ####Tax Services Manager: VELMA VALADEZ ([phone])[facility] ([facility])[address] [place] [address] [place] Chloride [Moles/Vol] 114 mmol/L High 98-107 [facility] Comment on above: Performed By: #### L AB15 ####Tax Services Manager: VELMA VALADEZ ([phone])[facility] ([facility])[address] [place] [address] [place] CO2 [Moles/Vol] 18 mmol/L Low 22-30 [facility] Comment on above: Performed By: #### L AB15 ####Tax Services Manager: VELMA VALADEZ ([phone])[facility] ([facility])[address] [place] [address] [place] Creatinine [Mass/Vol] 0.96 mg/dL Normal 0.52-1.04 [facility] Comment on above: Performed By: #### L AB15 ####Tax Services Manager: VELMA VALADEZ ([phone])[facility])[address] [place] [address] GLOMERULAR FILTRATION RATE ML/MIN/1.73 SQ M.PREDICTED 58.5 mL/min/1.73m*2 Low >60.0 [facility] Comment on above: Result Comment: Calc ulation based on the Chronic Kidney Disease Epidemiology Collaboration (CKD-EPI) equation refit without adjustment for race Performed By: #### L AB15 ####Tax Services Manager: VELMA VALADEZ ([phone])[facility])[address] [place] [address] Glucose [Mass/Vol] 97 mg/dL Normal 70-100 [facility] Comment on above: Performed By: #### L AB15 ####Tax Services Manager: VELMA VALADEZ ([phone])[facility])[address] [place] [address] Potassium [Moles/Vol] 4.6 mmol/L Normal 3.5-5.1 [facility] Comment on above: Performed By: #### L AB15 ####Tax Services Manager: VELMA VALADEZ ([phone])[facility])[address] [place] [address] Sodium [Moles/Vol] 135 mmol/L Normal 135-145 [facility] Comment on above: Performed By: #### L AB15 ####Tax Services Manager: VELMA VALADEZ ([phone])[facility])[address] [place] [address] [place] Urea nitrogen [Mass/Vol] 17 mg/dL Normal 7-17 [facility] Comment on above: Performed By: #### L AB15 ####Tax Services Manager: VELMA VALADEZ ([phone])[facility])[address] [place] [address] BLOOD TYPE AND SCREEN GELon 04-06-2024 ABO GROUPING AB Normal [facility] Comment on above: Performed By: #### L [id number] ####Tax Services Manager: VELMA VALADEZ ([phone])[facility] ([facility])[address] [place] [address] RH TYPE IN BLOOD Positive Normal [facility] Comment on above: Performed By: #### L [id number] ####Tax Services Manager: VELMA VALADEZ ([phone])[facility] ([facility])[address] [place] [address] Basic metabolic 1998 panelon 04-06-2024 Anion gap [Moles/Vol] 4 mmol/L 3 - 13 mmol/L [facility] Calcium [Mass/Vol] 8.9 mg/dL 8.4 - 10. 4 mg/dL [facility] Chloride [Moles/Vol] 114 mmol/L High 98 - 10 7 mmol/L [facility] CO2 [Moles/Vol] 18 mmol/L Low 22 - 30 mmol/L [facility] Creatinine [Mass/Vol] 0.96 mg/dL 0.52 - 1.04 mg/dL [facility] GFR/1.73 sq M.predicted (S/P/Bld) [Vol rate/Area] 58.5 mL/min Low - PINF [facility] Comment on above: Calculation based on the Chronic Kidney Disease Epidemiology Collaboration (CKD-EPI) equation refit without adjustment for race Glucose [Mass/Vol] 97 mg/dL 70 - 100 mg/dL [facility] Interpretation and review of laboratory results Abnormal [facility] Potassium [Moles/Vol] 4.6 mmol/L 3.5 - 5.1 mmol/L [facility] Sodium [Moles/Vol] 135 mmol/L 135 - 145 mmol/L [facility] Urea nitrogen [Mass/Vol] 17 mg/dL 7 - 17 mg/dL [facility] Blood type and Crossmatch pa juan (Bld)on 04-06-2024 ABO group Nom (Bld) AB [facility] Blood group antibody screen GEL Ql Negative [facility] D Ag Ql [facility]RBC) [facility] CARECOORDon 04-06-2024 CARECOORD Normal [facility] CARECOORD Normal [facility] CBC W Auto Differential pane l (Bld)on 04-06-2024 Basophils (Bld) [#/Vol] 0.1 10*3/uL 0.0 - 0.2 10*3/uL [facility] Basophils/100 WBC (Bld) 1.1 % 0.0 - 2.0 % [facility] Eosinophils (Bld) [#/Vol] 0.1 10*3/uL 0.0 - 0.5 10*3/uL [facility] Eosinophils/100 WBC (Bld) 2.7 % 0.0 - 6.0 % [facility] Erythrocyte distribution width (RBC) [Ratio] 14.3 % 11.5 - 15.0 % [facility] Hematocrit (Bld) [Volume fraction] 29.8 % Low 35.0 - 47.0 % [facility] Hemoglobin (Bld) [Mass/Vol] 9.7 g/dL Low 11.7 - 16.0 g/dL [facility] Immature granulocytes (Bld) [#/Vol] 0.0 10*3/uL NINF - 0.1 10*3/uL [facility] Immature granulocytes/100 WBC (Bld) 0.2 % 0.0 - 2.0 % [facility] Interpretation and review of laboratory results Abnormal [facility] Lymphocytes (Bld) [#/Vol] 1.5 10*3/uL 1.0 - 4.3 10*3/uL [facility] Lymphocytes/100 WBC (Bld) 33.0 % 15.0 - 45.0 % [facility] MCH (RBC) [Entitic mass] 30.3 pg 26.0 - 34.0 pg [facility] MCHC (RBC) [Mass/Vol] 32.6 % 30.5 - 36.0 % [facility] MCV (RBC) [Entitic vol] 93.1 fL 77.0 - 99.0 fL [facility] Monocytes (Bld) [#/Vol] 0.5 10*3/uL 0.0 - 0.9 10*3/uL [facility] Monocytes/100 WBC (Bld) 10.5 % 5.0 - 13.0 % [facility] Neutrophils (Bld) [#/Vol] 2.4 10*3/uL 1.8 - 7.5 10*3/uL [facility] Neutrophils/100 WBC (Bld) 52.5 % 38.0 - 82.0 % [facility] Nucleated RBC/100 WBC (Bld) [Ratio] 0.0 % [facility] Platelet mean volume (Bld) [Entitic vol] 10.4 fL 9.0 - 12.7 fL [facility] Platelets (Bld) [#/Vol] 207 10*3/uL 140 - 440 10*3/uL [facility] RBC (Bld) [#/Vol] 3.20 10*6/uL Low 3.80 - 5.2 0 10*6/uL [facility] WBC (Bld) [#/Vol] 4.5 10*3/uL 3.6 - 10.7 10*3/uL [facility] CBC WITH AUTO DIFFERENTIALon 04-06-2024 Basophils (Bld) [#/Vol] 0.1 10*3/uL Normal 0.0-0.2 [facility] Comment on above: Performed By: #### L [id number] ####Tax Services Manager: VELMA VALADEZ ([phone])[facility])[address] [place] [address] Basophils/100 WBC (Bld) 1.1 % Normal 0.0-2.0 [facility] Comment on above: Performed By: #### L [id number] ####Tax Services Manager: VELMA VALADEZ ([phone])[facility])[address] [place] [address] Eosinophils (Bld) [#/Vol] 0.1 10*3/uL Normal 0.0-0.5 [facility] Comment on above: Performed By: #### L [id number] ####Tax Services Manager: VELMA VALADEZ ([phone])[facility])[address] [place] [address] [place] Eosinophils/100 WBC (Bld) 2.7 % Normal 0.0-6.0 [facility] Comment on above: Performed By: #### L [id number] ####Tax Services Manager: VELMA VALADEZ ([phone])[facility])[address] [place] [address] Erythrocyte distribution width (RBC) [Ratio] 14.3 % Normal 11.5-15.0 [facility] Comment on above: Performed By: #### L [id number] ####Tax Services Manager: VELMA VALADEZ ([phone])[address] Hematocrit (Bld) [Volume fraction] 29.8 % Low 35.0-47.0 [facility] Comment on above: Performed By: #### L [id number] ####Tax Services Manager: VELMA VALADEZ ([phone])[facility])[address] [place] [address] Hemoglobin (Bld) [Mass/Vol] 9.7 g/dL Low 11.7-16.0 [facility] Comment on above: Performed By: #### L [id number] ####Tax Services Manager: VELMA VALADEZ ([phone])[address] IMMATURE GRANS % 0.2 % Normal 0.0-2.0 [facility] Comment on above: Performed By: #### L [id number] ####Tax Services Manager: VELMA VALADEZ ([phone])[address] IMMATURE GRANS ABSOLUTE 0.0 10*3/uL Normal <0.1 [facility] Comment on above: Performed By: #### L [id number] ####Tax Services Manager: VELMA VALADEZ ([phone])[facility])[address] [place] [address] Lymphocytes (Bld) [#/Vol] 1.5 10*3/uL Normal 1.0-4.3 [facility] Comment on above: Performed By: #### L [id number] ####Tax Services Manager: VELMA VALADEZ ([phone])[address] Lymphocytes/100 WBC (Bld) 33.0 % Normal 15.0-45.0 [facility] Comment on above: Performed By: #### L [id number] ####Tax Services Manager: VELMA VALADEZ ([phone])[facility])[address] [place] [address] MCH (RBC) [Entitic mass] 30.3 pg Normal 26.0-34.0 [facility] Comment on above: Performed By: #### L [id number] ####Tax Services Manager: VELMA VALADEZ ([phone])[facility])[address] [place] [address] MCHC 32.6 % Normal 30.5-36.0 [facility] Comment on above: Performed By: #### L [id number] ####Tax Services Manager: VELMA VALADEZ ([phone])[facility])[address] [place] [address] MCV (RBC) [Entitic vol] 93.1 fL Normal 77.0-99.0 [facility] Comment on above: Performed By: #### L [id number] ####Tax Services Manager: VELMA VALADEZ ([phone])[facility])[address] [place] [address] Monocytes (Bld) [#/Vol] 0.5 10*3/uL Normal 0.0-0.9 [facility] Comment on above: Performed By: #### L [id number] ####Tax Services Manager: VELMA VALADEZ ([phone])[facility])[address] [place] [address] Monocytes/100 WBC (Bld) 10.5 % Normal 5.0-13.0 [facility] Comment on above: Performed By: #### L [id number] ####Tax Services Manager: VELMA VALADEZ ([phone])[facility])[address] [place] [address] NEUTROPHILS ABSOLUTE 2.4 10*3/uL Normal 1.8-7.5 [facility] Comment on above: Performed By: #### L [id number] ####Tax Services Manager: VELMA VALADEZ ([phone])[facility])[address] [place] [address] Neutrophils/100 WBC (Bld) 52.5 % Normal 38.0-82.0 [facility] Comment on above: Performed By: #### L [id number] ####Tax Services Manager: VELMA VALADEZ ([phone])[facility] ([facility])[address] [place] [address] NRBC 0.0 /100 WBCs Normal 0.0-2.0 [facility] Comment on above: Performed By: #### L [id number] ####Tax Services Manager: VELMA VALADEZ ([phone])[facility] ([facility])[address] [place] [address] Platelet mean volume (Bld) [Entitic vol] 10.4 fL Normal 9.0-12.7 [facility] Comment on above: Performed By: #### L [id number] ####Tax Services Manager: VELMA VALADEZ ([phone])[facility] ([facility])[address] [place] [address] Platelets (Bld) [#/Vol] 207 10*3/uL Normal 140-440 [facility] Comment on above: Performed By: #### L [id number] ####Tax Services Manager: VELMA VALADEZ ([phone])[facility] ([facility])[address] [place] [address] RBC (Bld) [#/Vol] 3.20 10*6/uL Low 3.80-5.20 [facility] Comment on above: Performed By: #### L [id number] ####Tax Services Manager: VELMA VALADEZ ([phone])[facility] ([facility])[address] [place] [address] WBC (Bld) [#/Vol] 4.5 10*3/uL Normal 3.6-10.7 [facility] Comment on above: Performed By: #### L [id number] ####Tax Services Manager: VELMA VALADEZ ([phone])[facility] ([facility])[address] [place] [address] No Panel Informationon 04-06 There is no interpretation needed for this exam. IMAGING Nursing Noteon 04-06-2024 Nursing Note Patient report rader d to 4N RN and denies any further questions. Patient resting comfortably and no signs of distress. Per resident patient to lay flat for 2 hours and restart heparin GTT at 1215. Transport notified. Normal [facility] Op Noteon 04-06-2024 Op Note Normal [facility] Progress Noteon 04-06-2024 Progress Note Normal [facility] Progress Note Normal [facility] Progress Note Normal [facility] aPTT Coag (Bld) [Time]on aPTT Coag (PPP) [Time] 43.3 s High 20.0 - 30.5 s [facility] Interpretation and review of laboratory results Abnormal [facility] NOTE: The therapeuti c time for Heparin anticoagulation, based on Xa activity inhibition, is an APTT of 46-80 seconds. [facility] aPTT Coag (PPP) [Time] 97.6 s High 20.0 - 30.5 s [facility] Interpretation and review of laboratory results Abnormal [facility] NOTE: The therapeuti c time for Heparin anticoagulation, based on Xa activity inhibition, is an APTT of 46-80 seconds. [facility] 36on 04-05-2024 36 Surgery: Inpatient R LE venous mechanical thrombectomy Date of surgery: 04/06/24 Pre-testing: inpatient CPT codes: 56594 ICD 10: I82.401 Post-op or OV: Adriane to schedule Reps: Selvin Elaine) notified 04/05/24 Normal [facility] APTTon 04-05-2024 aPTT Coag (Bld) [Time] 76.6 s High 20.0-30.5 [facility] Comment on above: Result Comment: BUBBA Garcia COMMENTS:NOTE: The therapeutic time for Heparin anticoagulation, based on Xa activity inhibition, is an APTT of 46-80 seconds. Performed By: #### L [id number], [id number] ####Tax Services Manager: VELMA VALADEZ ([phone])[facility] ([address] aPTT Coag (Bld) [Time] 69.9 s High 20.0-30.5 [facility] Comment on above: Result Comment: BUBBA R COMMENTS:NOTE: The therapeutic time for Heparin anticoagulation, based on Xa activity inhibition, is an APTT of 46-80 seconds. Performed By: #### L [id number] ####Tax Services Manager: VELMA VALADEZ ([phone])[facility] ([facility])[address] [place] [address] aPTT Coag (Bld) [Time] 88.8 s High 20.0-30.5 [facility] Comment on above: Result Comment: BUBBA Garcia COMMENTS:NOTE: The therapeutic time for Heparin anticoagulation, based on Xa activity inhibition, is an APTT of 46-80 seconds. Performed By: #### L [id number], [id number] ####Tax Services Manager: VELMA VALADEZ ([phone])[address] aPTT Coag (Bld) [Time] 109.7 s High 20.0-30.5 [facility] Comment on above: Result Comment: BUBBA Garcia COMMENTS:NOTE: The therapeutic time for Heparin anticoagulation, based on Xa activity inhibition, is an APTT of 46-80 seconds. Performed By: #### L [id number] ####Tax Services Manager: VELMA VALADEZ ([phone])[facility] ([facility])[address] [place] [address] BASIC METABOLIC PANELon 09-1 Anion gap [Moles/Vol] 3 mmol/L Normal 3-13 [facility] Comment on above: Performed By: #### L AB15 ####Tax Services Manager: VELMA VAALDEZ ([phone])[facility])[address] [place] [address] Calcium [Mass/Vol] 8.7 mg/dL Normal 8.4-10.4 [facility] Comment on above: Performed By: #### L AB15 ####Tax Services Manager: VELMA [phone])[facility] ([facility])[address] [place] [address] Chloride [Moles/Vol] 113 mmol/L High 98-107 [facility] Comment on above: Performed By: #### L AB15 ####Tax Services Manager: VELMA VALADEZ ([phone])[facility])[address] [place] [address] CO2 [Moles/Vol] 17 mmol/L Low 22-30 [facility] Comment on above: Performed By: #### L AB15 ####Tax Services Manager: VELMA VALADEZ ([phone])[facility] ([facility])[address] [place] [address] Creatinine [Mass/Vol] 1.12 mg/dL High 0.52-1.04 [facility] Comment on above: Performed By: #### L AB15 ####Tax Services Manager: VELMA VALADEZ ([phone])[facility])[address] [place] [address] GLOMERULAR FILTRATION RATE ML/MIN/1.73 SQ M.PREDICTED 48.6 mL/min/1.73m*2 Low >60.0 [facility] Comment on above: Result Comment: Calc ulation based on the Chronic Kidney Disease Epidemiology Collaboration (CKD-EPI) equation refit without adjustment for race Performed By: #### L AB15 ####Tax Services Manager: VELMA VALADEZ ([phone])[facility] ([facility])[address] [place] [address] Glucose [Mass/Vol] 102 mg/dL High 70-100 [facility] Comment on above: Performed By: #### L AB15 ####Tax Services Manager: VELMA VALADEZ ([phone])[facility] ([facility])[address] [place] [address] [place] Potassium [Moles/Vol] 4.8 mmol/L Normal 3.5-5.1 [facility] Comment on above: Performed By: #### L AB15 ####Tax Services Manager: VELMA VALADEZ ([phone])[facility])[address] [place] [address] [place] Sodium [Moles/Vol] 133 mmol/L Low 135-145 [facility] Comment on above: Performed By: #### L AB15 ####Tax Services Manager: VELMA VALADEZ ([phone])[facility])[address] [place] [address] Urea nitrogen [Mass/Vol] 25 mg/dL High 7-17 [facility] Comment on above: Performed By: #### L [id number] ####Tax Services Manager: VELMA VALADEZ ([phone])[facility] ([address] Basic metabolic 1998 panelon 04-05-2024 Anion gap [Moles/Vol] 3 mmol/L 3 - 13 mmol/L [facility] Calcium [Mass/Vol] 8.7 mg/dL 8.4 - 10. 4 mg/dL [facility] Chloride [Moles/Vol] 113 mmol/L High 98 - 10 7 mmol/L [facility] CO2 [Moles/Vol] 17 mmol/L Low 22 - 30 mmol/L [facility] Creatinine [Mass/Vol] 1.12 mg/dL High 0.52 - 1.04 mg/dL [facility] GFR/1.73 sq M.predicted (S/P/Bld) [Vol rate/Area] 48.6 mL/min Low - PINF [facility] Comment on above: Calculation based on the Chronic Kidney Disease Epidemiology Collaboration (CKD-EPI) equation refit without adjustment for race Glucose [Mass/Vol] 102 mg/dL High 70 - 100 mg/dL [facility] Interpretation and review of laboratory results Abnormal [facility] Potassium [Moles/Vol] 4.8 mmol/L 3.5 - 5.1 mmol/L [facility] Sodium [Moles/Vol] 133 mmol/L Low 135 - 145 mmol/L [facility] Urea nitrogen [Mass/Vol] 25 mg/dL High 7 - 17 mg/dL [facility] CARECOORDon 04-05-2024 CARECOORD Normal [facility] CBC W Auto Differential pane l (Bld)on 04-05-2024 Basophils (Bld) [#/Vol] 0.1 10*3/uL 0.0 - 0.2 10*3/uL [facility] Basophils/100 WBC (Bld) 1.0 % 0.0 - 2.0 % [facility] Eosinophils (Bld) [#/Vol] 0.2 10*3/uL 0.0 - 0.5 10*3/uL [facility] Eosinophils/100 WBC (Bld) 2.9 % 0.0 - 6.0 % [facility] Erythrocyte distribution width (RBC) [Ratio] 14.4 % 11.5 - 15.0 % [facility] Hematocrit (Bld) [Volume fraction] 32.3 % Low 35.0 - 47.0 % [facility] Hemoglobin (Bld) [Mass/Vol] 10.6 g/dL Low 11.7 - 16.0 g/dL [facility] Immature granulocytes (Bld) [#/Vol] 0.0 10*3/uL NINF - 0.1 10*3/uL [facility] Immature granulocytes/100 WBC (Bld) 0.3 % 0.0 - 2.0 % [facility] Interpretation and review of laboratory results Abnormal [facility] Lymphocytes (Bld) [#/Vol] 1.7 10*3/uL 1.0 - 4.3 10*3/uL [facility] Lymphocytes/100 WBC (Bld) 27.5 % 15.0 - 45.0 % [facility] MCH (RBC) [Entitic mass] 30.7 pg 26.0 - 34.0 pg [facility] MCHC (RBC) [Mass/Vol] 32.8 % 30.5 - 36.0 % [facility] MCV (RBC) [Entitic vol] 93.6 fL 77.0 - 99.0 fL [facility] Monocytes (Bld) [#/Vol] 0.6 10*3/uL 0.0 - 0.9 10*3/uL [facility] Monocytes/100 WBC (Bld) 9.0 % 5.0 - 13.0 % [facility] Neutrophils (Bld) [#/Vol] 3.6 10*3/uL 1.8 - 7.5 10*3/uL [facility] Neutrophils/100 WBC (Bld) 59.3 % 38.0 - 82.0 % [facility] Nucleated RBC/100 WBC (Bld) [Ratio] 0.0 % [facility] Platelet mean volume (Bld) [Entitic vol] 10.1 fL 9.0 - 12.7 fL [facility] Platelets (Bld) [#/Vol] 204 10*3/uL 140 - 440 10*3/uL [facility] RBC (Bld) [#/Vol] 3.45 10*6/uL Low 3.80 - 5.2 0 10*6/uL [facility] WBC (Bld) [#/Vol] 6.1 10*3/uL 3.6 - 10.7 10*3/uL [facility] CBC WITH AUTO DIFFERENTIALon 04-05-2024 Basophils (Bld) [#/Vol] 0.1 10*3/uL Normal 0.0-0.2 [facility] Comment on above: Performed By: #### L [id number] ####Tax Services Manager: VELMA VALADEZ ([phone])[facility] ([facility])[address] [place] [address] Basophils/100 WBC (Bld) 1.0 % Normal 0.0-2.0 [facility] Comment on above: Performed By: #### L [id number] ####Tax Services Manager: VELMA VALADEZ ([phone])[facility] ([facility])[address] [place] [address] Eosinophils (Bld) [#/Vol] 0.2 10*3/uL Normal 0.0-0.5 [facility] Comment on above: Performed By: #### L [id number] ####Tax Services Manager: VELMA VALADEZ ([phone])[facility] ([facility])[address] [place] [address] Eosinophils/100 WBC (Bld) 2.9 % Normal 0.0-6.0 [facility] Comment on above: Performed By: #### L [id number] ####Tax Services Manager: VELMA VALADEZ ([phone])[facility] ([facility])[address] [place] [address] Erythrocyte distribution width (RBC) [Ratio] 14.4 % Normal 11.5-15.0 [facility] Comment on above: Performed By: #### L [id number] ####Tax Services Manager: VELMA [phone])[facility] ([address] Hematocrit (Bld) [Volume fraction] 32.3 % Low 35.0-47.0 [facility] Comment on above: Performed By: #### L [id number] ####Tax Services Manager: VELMA VALADEZ ([phone])[facility])[address] [place] [address] Hemoglobin (Bld) [Mass/Vol] 10.6 g/dL Low 11.7-16.0 [facility] Comment on above: Performed By: #### L [id number] ####Tax Services Manager: VELMA VALADEZ ([phone])[facility])[address] [place] [address] IMMATURE GRANS % 0.3 % Normal 0.0-2.0 [facility] Comment on above: Performed By: #### L [id number] ####Tax Services Manager: VELMA VALADEZ ([phone])[facility])[address] [place] [address] IMMATURE GRANS ABSOLUTE 0.0 10*3/uL Normal <0.1 [facility] Comment on above: Performed By: #### L [id number] ####Tax Services Manager: VELMA VALADEZ ([phone])[facility])[address] [place] [address] Lymphocytes (Bld) [#/Vol] 1.7 10*3/uL Normal 1.0-4.3 [facility] Comment on above: Performed By: #### L [id number] ####Tax Services Manager: VELMA VALADEZ ([phone])[facility])[address] [place] [address] Lymphocytes/100 WBC (Bld) 27.5 % Normal 15.0-45.0 [facility] Comment on above: Performed By: #### L [id number] ####Tax Services Manager: VELMA VALADEZ ([phone])[facility])[address] [place] [address] MCH (RBC) [Entitic mass] 30.7 pg Normal 26.0-34.0 [facility] Comment on above: Performed By: #### L [id number] ####Tax Services Manager: VELMA VALADEZ ([phone])[facility])[address] [place] [address] MCHC 32.8 % Normal 30.5-36.0 [facility] Comment on above: Performed By: #### L [id number] ####Tax Services Manager: VELMA VALADEZ ([phone])[facility])[address] [place] [address] MCV (RBC) [Entitic vol] 93.6 fL Normal 77.0-99.0 [facility] Comment on above: Performed By: #### L [id number] ####Tax Services Manager: VELMA VALADEZ ([phone])[facility])[address] [place] [address] Monocytes (Bld) [#/Vol] 0.6 10*3/uL Normal 0.0-0.9 [facility] Comment on above: Performed By: #### L [id number] ####Tax Services Manager: VELMA VALADEZ ([phone])[facility])[address] [place] [address] Monocytes/100 WBC (Bld) 9.0 % Normal 5.0-13.0 [facility] Comment on above: Performed By: #### L [id number] ####Tax Services Manager: VELMA VALADEZ ([phone])[facility])[address] [place] [address] NEUTROPHILS ABSOLUTE 3.6 10*3/uL Normal 1.8-7.5 [facility] Comment on above: Performed By: #### L [id number] ####Tax Services Manager: VELMA VALADEZ ([phone])[facility])[address] [place] [address] Neutrophils/100 WBC (Bld) 59.3 % Normal 38.0-82.0 [facility] Comment on above: Performed By: #### L [id number] ####Tax Services Manager: VELMA VALADEZ ([phone])[facility] ([facility])[address] [place] [address] NRBC 0.0 /100 WBCs Normal 0.0-2.0 [facility] Comment on above: Performed By: #### L [id number] ####Tax Services Manager: VELMA VALADEZ ([phone])[facility])[address] [place] [address] Platelet mean volume (Bld) [Entitic vol] 10.1 fL Normal 9.0-12.7 [facility] Comment on above: Performed By: #### L [id number] ####Tax Services Manager: VELMA VALADEZ ([phone])[facility])[address] [place] [address] Platelets (Bld) [#/Vol] 204 10*3/uL Normal 140-440 [facility] Comment on above: Performed By: #### L [id number] ####Tax Services Manager: VELMA VALADEZ ([phone])[facility] ([facility])[address] [place] [address] RBC (Bld) [#/Vol] 3.45 10*6/uL Low 3.80-5.20 [facility] Comment on above: Performed By: #### L [id number] ####Tax Services Manager: VELMA VALADEZ ([phone])[facility])[address] [place] [address] WBC (Bld) [#/Vol] 6.1 10*3/uL Normal 3.6-10.7 [facility] Comment on above: Performed By: #### L [id number] ####Tax Services Manager: EVLMA VALADEZ ([phone])[facility])[address] [place] [address] IDNon 04-05-2024 IDN The patient is Moderately Stable - Low risk of patient condition declining or worsening The patient's goals for the shift include met The clinical goals for the shift include met Normal [facility] - Coagulationon 0 04-05-2024 PT Coag (Bld) [Time] 11.4 s 9.0 - 1 2.0 s [facility] PT Coag (Bld) [Time] 11.9 s 9.0 - 1 2.0 s [facility] No Panel Informationon 04-05 [facility] PROTHROMBIN TIMEon INR Coag (PPP) [Relative time] 1.0 {INR} Normal 0.9-1.1 [facility] Comment on above: Performed By: #### [place] [id number], [id number] ####Tax Services Manager: VELMA VALADEZ ([phone])[address] PT Coag (PPP) [Time] 11.4 s Normal 9.0-12.0 [facility] Comment on above: Performed By: #### [place] AB325, [id number] ####Tax Services Manager: VELMA VALADEZ ([phone])[address] INR Coag (PPP) [Relative time] 1.1 {INR} Normal 0.9-1.1 [facility] Comment on above: Result [...] Myocardial Infarction Performed By: #### L [id number], [id number] ####Tax Services Manager: VELMA VALADEZ ([phone])[address] PT Coag (PPP) [Time] 11.9 s Normal 9.0-12.0 [facility] Comment on above: Performed By: #### [place] [id number], [id number] ####Tax Services Manager: VELMA [phone])[address] [place] [address] RUST PT Coag (Bld) [Time]on 04-05 INR Coag (PPP) [Relative time] 1.0 {INR} 0.9 - 1.1 [facility] Interpretation and review of laboratory results Normal [facility] INR Coag (PPP) [Relative time] 1.1 {INR} 0.9 - 1.1 [facility] Comment on above: Recommended Anticoag ulant [...] review of laboratory results Normal [facility] Progress Noteon 04-05-2024 Progress Note Normal [facility] Progress Note Nutrition rescreen completed. Chart reviewed. Patient to be monitored and followed by the diet senior health physics technician. AFDI [place] Normal [facility] Progress Note Normal [facility] Progress Note Normal [facility] aPTT Coag (Bld) [Time]on aPTT Coag (PPP) [Time] 76.6 s High 20.0 - 30.5 s [facility] Interpretation and review of laboratory results Abnormal [facility] NOTE: The therapeuti c time for Heparin anticoagulation, based on Xa activity inhibition, is an APTT of 46-80 seconds. [facility] aPTT Coag (PPP) [Time] 69.9 s High 20.0 - 30.5 s [facility] Interpretation and review of laboratory results Abnormal [facility] NOTE: The therapeuti c time for Heparin anticoagulation, based on Xa activity inhibition, is an APTT of 46-80 seconds. [facility] aPTT Coag (PPP) [Time] 88.8 s High 20.0 - 30.5 s [facility] Interpretation and review of laboratory results Abnormal [facility] NOTE: The therapeuti c time for Heparin anticoagulation, based on Xa activity inhibition, is an APTT of 46-80 seconds. [facility] aPTT Coag (Bld) [Time]Ordere d By: Juni Millard on 04-05-2024 aPTT Coag (PPP) [Time] 109.7 s High 20.0 - 30.5 s [facility] Interpretation and review of laboratory results Abnormal [facility] NOTE: The therapeuti c time for Heparin anticoagulation, based on Xa activity inhibition, is an APTT of 46-80 seconds. [facility] [id number] 04-04-2024 [id number] Normal [facility] [id number] Normal [facility] APTTon 04-04-2024 aPTT Coag (Bld) [Time] 81.8 s High 20.0-30.5 [facility] Comment on above: Result Comment: BUBBA R COMMENTS:NOTE: The therapeutic time for Heparin anticoagulation, based on Xa activity inhibition, is an APTT of 46-80 seconds. Performed By: #### L [id number] ####Tax Services Manager: VELMA VALADEZ ([phone])[address] aPTT Coag (Bld) [Time] 81.4 s High 20.0-30.5 [facility] Comment on above: Result Comment: BUBBA Garcia COMMENTS:NOTE: The therapeutic time for Heparin anticoagulation, based on Xa activity inhibition, is an APTT of 46-80 seconds. Performed By: #### L [id number] ####Tax Services Manager: VELMA VALADEZ ([phone])[facility])[address] [place] [address] aPTT Coag (Bld) [Time] 132.2 s Critically high 20.0-30. 5 [facility] Comment on above: Result Comment: BUBBA R COMMENTS:NOTE: The therapeutic time for Heparin anticoagulation, based on Xa activity inhibition, is an APTT of 46-80 seconds. Performed By: #### L [id number] ####Tax Services Manager: VELMA VALADEZ ([phone])[facility] ([facility])[address] [place] [address] BASIC METABOLIC PANELon 03-18 Anion gap [Moles/Vol] 8 mmol/L Normal 3-13 [facility] Comment on above: Performed By: #### L [id number] ####Tax Services Manager: VELMA VALADEZ ([phone])[facility] ([facility])[address] [place] [address] Calcium [Mass/Vol] 9.3 mg/dL Normal 8.4-10.4 [facility] Comment on above: Performed By: #### L AB15 ####Tax Services Manager: VELMA VALADEZ ([phone])[facility] ([facility])[address] [place] [address] Chloride [Moles/Vol] 110 mmol/L High 98-107 [facility] Comment on above: Performed By: #### L AB15 ####Tax Services Manager: VELMA VALADEZ ([phone])[facility] [place] [address] CO2 [Moles/Vol] 18 mmol/L Low 22-30 [facility] Comment on above: Performed By: #### L AB15 ####Tax Services Manager: VELMA VALADEZ ([phone])[facility] ([facility])[address] [place] [address] Creatinine [Mass/Vol] 1.45 mg/dL High 0.52-1.04 [facility] Comment on above: Performed By: #### L AB15 ####Tax Services Manager: VELMA VALADEZ ([phone])[facility] ([facility])[address] [place] [address] [place] GLOMERULAR FILTRATION RATE ML/MIN/1.73 SQ M.PREDICTED 35.6 mL/min/1.73m*2 Low >60.0 [facility] Comment on above: Result Comment: Calc ulation based on the Chronic Kidney Disease Epidemiology Collaboration (CKD-EPI) equation refit without adjustment for race Performed By: #### L AB15 ####Tax Services Manager: VELMA VALADEZ ([phone])[facility] [place] [address] [place] Glucose [Mass/Vol] 100 mg/dL Normal 70-100 [facility] Comment on above: Performed By: #### L AB15 ####Tax Services Manager: VELMA VALADEZ ([phone])[facility] ([facility])[address] [place] [address] Potassium [Moles/Vol] 4.5 mmol/L Normal 3.5-5.1 [facility] Comment on above: Performed By: #### L AB15 ####Tax Services Manager: VELMA VALADEZ ([phone])[facility] ([facility])[address] [place] [address] Sodium [Moles/Vol] 135 mmol/L Normal 135-145 [facility] Comment on above: Performed By: #### L AB15 ####Tax Services Manager: VELMA VALADEZ ([phone])[facility] ([facility])[address] [place] [address] Urea nitrogen [Mass/Vol] 30 mg/dL High 7-17 [facility] Comment on above: Performed By: #### L AB15 ####Tax Services Manager: VELMA VALADEZ ([phone])[facility] ([facility])[address] [place] [address] Basic metabolic 1998 panelOr dered By: Marielle Garcia on 04-04-2024 Anion gap [Moles/Vol] 8 mmol/L 3 - 13 mmol/L [facility] Calcium [Mass/Vol] 9.3 mg/dL 8.4 - 10. 4 mg/dL [facility] Chloride [Moles/Vol] 110 mmol/L High 98 - 10 7 mmol/L [facility] CO2 [Moles/Vol] 18 mmol/L Low 22 - 30 mmol/L [facility] Creatinine [Mass/Vol] 1.45 mg/dL High 0.52 - 1.04 mg/dL [facility] GFR/1.73 sq M.predicted (S/P/Bld) [Vol rate/Area] 35.6 mL/min Low - PINF [facility] Comment on above: Calculation based on the Chronic Kidney Disease Epidemiology Collaboration (CKD-EPI) equation refit without adjustment for race Glucose [Mass/Vol] 100 mg/dL 70 - 100 mg/dL [facility] Interpretation and review of laboratory results Abnormal [facility] Potassium [Moles/Vol] 4.5 mmol/L 3.5 - 5.1 mmol/L [facility] Sodium [Moles/Vol] 135 mmol/L 135 - 145 mmol/L [facility] Urea nitrogen [Mass/Vol] 30 mg/dL High 7 - 17 mg/dL [facility] CARECOORDon 04-04-2024 CARECOORD Normal [facility] CBC W Auto Differential pane l (Bld)on 04-04-2024 Basophils (Bld) [#/Vol] 0.1 10*3/uL 0.0 - 0.2 10*3/uL [facility] Basophils/100 WBC (Bld) 0.7 % 0.0 - 2.0 % [facility] Eosinophils (Bld) [#/Vol] 0.3 10*3/uL 0.0 - 0.5 10*3/uL [facility] Eosinophils/100 WBC (Bld) 3.2 % 0.0 - 6.0 % [facility] Erythrocyte distribution width (RBC) [Ratio] 14.2 % 11.5 - 15.0 % [facility] Hematocrit (Bld) [Volume fraction] 38.8 % 35.0 - 47.0 % [facility] Hemoglobin (Bld) [Mass/Vol] 12.5 g/dL 11.7 - 16.0 g/dL [facility] Immature granulocytes (Bld) [#/Vol] 0.1 10*3/uL High NINF - 0.1 10*3/uL [facility] Immature granulocytes/100 WBC (Bld) 0.6 % 0.0 - 2.0 % [facility] Interpretation and review of laboratory results Abnormal [facility] Lymphocytes (Bld) [#/Vol] 1.6 10*3/uL 1.0 - 4.3 10*3/uL [facility] Lymphocytes/100 WBC (Bld) 19.2 % 15.0 - 45.0 % [facility] MCH (RBC) [Entitic mass] 29.7 pg 26.0 - 34.0 pg [facility] MCHC (RBC) [Mass/Vol] 32.2 % 30.5 - 36.0 % [facility] MCV (RBC) [Entitic vol] 92.2 fL 77.0 - 99.0 fL [facility] Monocytes (Bld) [#/Vol] 0.8 10*3/uL 0.0 - 0.9 10*3/uL [facility] Monocytes/100 WBC (Bld) 9.9 % 5.0 - 13.0 % [facility] Neutrophils (Bld) [#/Vol] 5.3 10*3/uL 1.8 - 7.5 10*3/uL [facility] Neutrophils/100 WBC (Bld) 66.4 % 38.0 - 82.0 % [facility] Nucleated RBC/100 WBC (Bld) [Ratio] 0.0 % [facility] Platelet mean volume (Bld) [Entitic vol] 10.0 fL 9.0 - 12.7 fL [facility] Platelets (Bld) [#/Vol] 266 10*3/uL 140 - 440 10*3/uL [facility] RBC (Bld) [#/Vol] 4.21 10*6/uL 3.80 - 5.2 0 10*6/uL [facility] WBC (Bld) [#/Vol] 8.1 10*3/uL 3.6 - 10.7 10*3/uL [facility] CBC WITH AUTO DIFFERENTIALon 04-04-2024 Basophils (Bld) [#/Vol] 0.1 10*3/uL Normal 0.0-0.2 [facility] Comment on above: Performed By: #### L [id number] ####Tax Services Manager: VELMA VALADEZ ([phone])[facility])[address] [place] [address] Basophils/100 WBC (Bld) 0.7 % Normal 0.0-2.0 [facility] Comment on above: Performed By: #### L [id number] ####Tax Services Manager: VELMA VALADEZ ([phone])[facility] ([facility])[address] [place] [address] [place] Eosinophils (Bld) [#/Vol] 0.3 10*3/uL Normal 0.0-0.5 [facility] Comment on above: Performed By: #### L [id number] ####Tax Services Manager: VELMA VALADEZ ([phone])[facility] ([facility])[address] [place] [address] [place] Eosinophils/100 WBC (Bld) 3.2 % Normal 0.0-6.0 [facility] Comment on above: Performed By: #### L [id number] ####Tax Services Manager: VELMA VALADEZ ([phone])[facility])[address] [place] [address] Erythrocyte distribution width (RBC) [Ratio] 14.2 % Normal 11.5-15.0 [facility] Comment on above: Performed By: #### L [id number] ####Tax Services Manager: VELMA VALADEZ ([phone])[facility])[address] [place] [address] Hematocrit (Bld) [Volume fraction] 38.8 % Normal 35.0-47.0 [facility] Comment on above: Performed By: #### L [id number] ####Tax Services Manager: VELMA VALADEZ ([phone])[address] Hemoglobin (Bld) [Mass/Vol] 12.5 g/dL Normal 11.7-16.0 [facility] Comment on above: Performed By: #### L [id number] ####Tax Services Manager: VELMA VALADEZ ([phone])[facility])[address] [place] [address] IMMATURE GRANS % 0.6 % Normal 0.0-2.0 [facility] Comment on above: Performed By: #### L [id number] ####Tax Services Manager: VELMA VALADEZ ([phone])[facility])[address] [place] [address] IMMATURE GRANS ABSOLUTE 0.1 10*3/uL High <0.1 [facility] Comment on above: Performed By: #### L [id number] ####Tax Services Manager: VELMA VALADEZ ([phone])[facility])[address] [place] [address] Lymphocytes (Bld) [#/Vol] 1.6 10*3/uL Normal 1.0-4.3 [facility] Comment on above: Performed By: #### L [id number] ####Tax Services Manager: VELMA VALADEZ ([phone])[facility])[address] [place] [address] Lymphocytes/100 WBC (Bld) 19.2 % Normal 15.0-45.0 [facility] Comment on above: Performed By: #### L [id number] ####Tax Services Manager: VELMA VALADEZ ([phone])[facility])[address] [place] [address] MCH (RBC) [Entitic mass] 29.7 pg Normal 26.0-34.0 [facility] Comment on above: Performed By: #### L [id number] ####Tax Services Manager: VELMA VALADEZ ([phone])[facility])[address] [place] [address] MCHC 32.2 % Normal 30.5-36.0 [facility] Comment on above: Performed By: #### L [id number] ####Tax Services Manager: VELMA VALADEZ ([phone])[facility])[address] [place] [address] MCV (RBC) [Entitic vol] 92.2 fL Normal 77.0-99.0 [facility] Comment on above: Performed By: #### L [id number] ####Tax Services Manager: VELMA VALADEZ ([phone])[facility])[address] [place] [address] Monocytes (Bld) [#/Vol] 0.8 10*3/uL Normal 0.0-0.9 [facility] Comment on above: Performed By: #### L [id number] ####Tax Services Manager: VELMA VALADEZ ([phone])[facility])[address] [place] [address] Monocytes/100 WBC (Bld) 9.9 % Normal 5.0-13.0 [facility] Comment on above: Performed By: #### L [id number] ####Tax Services Manager: VELMA [phone])[facility] ([facility])[address] [place] [address] NEUTROPHILS ABSOLUTE 5.3 10*3/uL Normal 1.8-7.5 [facility] Comment on above: Performed By: #### L [id number] ####Tax Services Manager: VELMA VALADEZ ([phone])[facility] ([facility])[address] [place] [address] Neutrophils/100 WBC (Bld) 66.4 % Normal 38.0-82.0 [facility] Comment on above: Performed By: #### L [id number] ####Tax Services Manager: VELMA VALADEZ ([phone])[facility] ([facility])[address] [place] [address] NRBC 0.0 /100 WBCs Normal 0.0-2.0 [facility] Comment on above: Performed By: #### L [id number] ####Tax Services Manager: VELMA VALADEZ ([phone])[facility] ([facility])[address] [place] [address] Platelet mean volume (Bld) [Entitic vol] 10.0 fL Normal 9.0-12.7 [facility] Comment on above: Performed By: #### L [id number] ####Tax Services Manager: VELMA VALADEZ ([phone])[facility] ([facility])[address] [place] [address] Platelets (Bld) [#/Vol] 266 10*3/uL Normal 140-440 [facility] Comment on above: Performed By: #### L [id number] ####Tax Services Manager: VELMA VALADEZ ([phone])[facility] ([facility])[address] [place] [address] RBC (Bld) [#/Vol] 4.21 10*6/uL Normal 3.80-5.20 [facility] Comment on above: Performed By: #### L [id number] ####Tax Services Manager: VELMA VALADEZ ([phone])[facility] ([facility])[address] [place] [address] WBC (Bld) [#/Vol] 8.1 10*3/uL Normal 3.6-10.7 [facility] Comment on above: Performed By: #### L [id number] ####Tax Services Manager: VELMA VALADEZ ([phone])[facility] ([facility])[address] [place] [address] Consulton 04-04-2024 Consult Normal [facility] Consult Normal [facility] ECG 12-LEADon 04-04-2024 ECG 12-LEAD IMPRESSION: Atrial fibrillation Borderline T abnormalities, inferior leads Compared to ECG 08/28/11 Sinus rhythm no longer noted Electronically Signed On 04-04-2024 03:48:37 EDT by Sourav Swenson [facility] ED Nursing Noteon 04-04-2024 ED Nursing Note Report to Deliaarianne Bond RN 04/04/24 0342 [facility] ED Nursing Note Multiple attempts ma sheri to call report to [facility] with phone number provided by soldering 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 Will try again. Shannon Bond RN 04/04/24 0331 Normal [facility] ED Nursing Note [facility] at bedside to transport pt to [facility]. Paperwork with EMS Shannon Bond RN 04/04/24 0314 [facility] IDNon 04-04-2024 IDN The patient is Moderately Stable - Low risk of patient condition declining or worsening The patient's goals for the shift include safety The clinical goals for the shift include therapeutic aptt Normal [facility] IDN Normal [facility] No Panel Informationon 04-04 Left Pop Rfx 1.1 s [facility] Acute extensive DVT in the right [...] the popliteal vein. History of DVT in [facility] 2021 Area Intelligence Technician Details A george scale, color Doppler imaging, spectral Doppler analysis and B-flow ultrasound was performed. During the study 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 and transverse views were obtained. Pulsed wave doppler was performed. The exam was performed with the patient in the supine position. Overall the study quality was adequate. Study was technically difficult due to: bowel gas. CV CPACS Left MICHELLE 0.62 [facility] Left dorsalis pedis BP 78 mmHg [facility] Left posterior tibial 86 mmHg [facility] Right MICHELLE 0.55 [facility] Right arm BP 139 mmHg [facility] Right dorsalis pedis BP 65 mmHg [facility] Right posterior tibial 76 mmHg [facility] Right side findings: Resting [...] of RLE discovered just before PVR testing. Area Intelligence Technician Details A spectral Doppler analysis ultrasound was [...] On 04-04-2024 03:48:37 EDT by Sourav Swenson Patterns No Panel InformationOrdered By: Sourav Swenson on 04-04-2024 P [place] 0 degrees [employer] Phone: IA Interval 0 ms [employer] Phone: QRS [place] 40 degrees [employer] Phone: QRSD Interval 86 ms [employer] [place] Work Phone: QT Interval 352 ms [employer] Phone: QTC Interval 411 ms [employer] Work Phone: T Wave [place] -3 degrees [employer] Phone: [employer] Phone: Progress Noteon 04-04-2024 Progress Note Normal [facility] Progress Note Normal [facility] Progress Note Normal [facility] Vital signsOrdered By: Cathy Swenson on 04-04-2024 Heart rate 82 /min bpm [employer] Phone: aPTT Coag (Bld) [Time]on aPTT Coag (PPP) [Time] 81.8 s High 20.0 - 30.5 s [facility] Interpretation and review of laboratory results Abnormal [facility] NOTE: The therapeuti c time for Heparin anticoagulation, based on Xa activity inhibition, is an APTT of 46-80 seconds. [facility] aPTT Coag (PPP) [Time] 81.4 s High 20.0 - 30.5 s [facility] Interpretation and review of laboratory results Abnormal [facility] NOTE: The therapeuti c time for Heparin anticoagulation, based on Xa activity inhibition, is an APTT of 46-80 seconds. [facility] aPTT Coag (Bld) [Time]Ordere d By: Devika Eisenberg on 04-04-2024 aPTT Coag (PPP) [Time] 132.2 s Critically high 20 .0 - 30.5 s [facility] Interpretation and review of laboratory results Abnormal [facility] NOTE: The therapeuti c time for Heparin anticoagulation, based on Xa activity inhibition, is an APTT of 46-80 seconds. [facility] APTTon 04-03-2024 aPTT Coag (Bld) [Time] 25.6 s Normal 20.0-30.5 [facility] Comment on above: Result Comment: BUBBA Garcia COMMENTS:NOTE: The therapeutic time for Heparin anticoagulation, based on Xa activity inhibition, is an APTT of 46-80 seconds. Performed By: #### L [id number] ####Tax Services Manager: MARYLOU MAY ([phone])[facility] ([facility])[address] [place] [address] CBC (HEMOGRAM)on 04-03-2024 Erythrocyte distribution width (RBC) [Ratio] 14.4 % Normal 11.5-15.0 [facility] Comment on above: Performed By: #### L [id number] ####Tax Services Manager: MARYLOU MAY ([phone])[facility])[address] [place] [address] Hematocrit (Bld) [Volume fraction] 38.6 % Normal 35.0-47.0 [facility] Comment on above: Performed By: #### L [id number] ####Tax Services Manager: MARYLOU [phone])SUMMSimran [facility]PITALBoss[facility] ([facility])[address] Hemoglobin (Bld) [Mass/Vol] 12.7 g/dL Normal 11.7-16.0 [facility] Comment on above: Performed By: #### L [id number] ####Tax Services Manager: MARYLOU MAY ([phone])[facility]ITAL[facility] ([facility])[address] MCH (RBC) [Entitic mass] 30.4 pg Normal 26.0-34.0 [facility] Comment on above: Performed By: #### L [id number] ####Tax Services Manager: MARYLOU MAY ([phone])[facility] ([facility])[address] MCHC 32.9 % Normal 30.5-36.0 [facility] Comment on above: Performed By: #### L [id number] ####Tax Services Manager: MARYLOU MAY ([phone])[facility] ([facility])[address] MCV (RBC) [Entitic vol] 92.3 fL Normal 77.0-99.0 [facility] Comment on above: Performed By: #### L [id number] ####Tax Services Manager: MARYLOU MAY ([phone])[facility] ([facility])[address] Platelet mean volume (Bld) [Entitic vol] 10.0 fL Normal 9.0-12.7 [facility] Comment on above: Performed By: #### L [id number] ####Tax Services Manager: MARYLOU MAY ([phone])[facility] ([facility])[address] Platelets (Bld) [#/Vol] 283 10*3/uL Normal 140-440 [facility] Comment on above: Performed By: #### L [id number] ####Tax Services Manager: MARYLOU MAY ([phone])[facility] ([facility])[address] RBC (Bld) [#/Vol] 4.18 10*6/uL Normal 3.80-5.20 [facility] Comment on above: Performed By: #### L [id number] ####Tax Services Manager: MARYLOU MAY ([phone])[facility] ([facility])[address] WBC (Bld) [#/Vol] 9.3 10*3/uL Normal 3.6-10.7 [facility] Comment on above: Performed By: #### L [id number] ####Tax Services Manager: MARYLOU MAY ([phone])[facility] ([facility])[address] [place] [address] CBC panel Auto (Bld)on 04-03 Erythrocyte distribution width (RBC) [Ratio] 14.4 % 11.5 - 15.0 % [facility] Hematocrit (Bld) [Volume fraction] 38.6 % 35.0 - 47.0 % [facility] Hemoglobin (Bld) [Mass/Vol] 12.7 g/dL 11.7 - 16.0 g/dL [facility] Interpretation and review of laboratory results Normal [facility] MCH (RBC) [Entitic mass] 30.4 pg 26.0 - 34.0 pg [facility] MCHC (RBC) [Mass/Vol] 32.9 % 30.5 - 36.0 % [facility] MCV (RBC) [Entitic vol] 92.3 fL 77.0 - 99.0 fL [facility] Platelet mean volume (Bld) [Entitic vol] 10.0 fL 9.0 - 12.7 fL [facility] Platelets (Bld) [#/Vol] 283 10*3/uL 140 - 440 10*3/uL [facility] RBC (Bld) [#/Vol] 4.18 10*6/uL 3.80 - 5.2 0 10*6/uL [facility] WBC (Bld) [#/Vol] 9.3 10*3/uL 3.6 - 10.7 10*3/uL [facility] COMPREHENSIVE METABOLIC PANE Gilberto 04-03-2024 Albumin [Mass/Vol] 4.3 g/dL Normal 3.5-5.0 [facility] Comment on above: Performed By: #### L ABJovan, [id number], LAB17 ####Tax Services Manager: MARYLOU MAY ([phone])[facility] ([facility])[address] ALP [Catalytic activity/Vol] 91 U/L Normal 38-126 [facility] Comment on above: Performed By: #### L AB103, [id number], LAB17 ####Tax Services Manager: MARYLOU MAY ([phone])[facility] ([facility])[address] ALT [Catalytic activity/Vol] 10 U/L Normal 0-34 [facility] Comment on above: Performed By: #### Weston DAWSON, [id number], LAB17 ####Tax Services Manager: MARYLOU MAY ([phone])[facility] [place] ([facility])[address] Anion gap [Moles/Vol] 9 mmol/L Normal 3-13 [facility] Comment on above: Performed By: #### Weston ABJovan, [id number], LAB17 ####Tax Services Manager: MARYLOU MAY ([phone])[facility] ([facility])[address] AST [Catalytic activity/Vol] 19 U/L Normal 15-46 [facility] Comment on above: Performed By: #### L AB103, [id number], LAB17 ####Tax Services Manager: MARYLOU MAY ([phone])[facility] [place] ([facility])[address] [place] [address] [place] Bilirubin [Mass/Vol] 1.1 mg/dL Normal 0.2-1.3 [facility] Comment on above: Performed By: #### L AB103, [id number], LAB17 ####Tax Services Manager: MARYLOU MAY ([phone])[facility] [place] ([facility])[address] Calcium [Mass/Vol] 9.3 mg/dL Normal 8.4-10.4 [facility] Comment on above: Performed By: #### L AB103, [id number], LAB17 ####Tax Services Manager: MARYLOU MAY ([phone])[facility] [place] ([facility])[address] Chloride [Moles/Vol] 107 mmol/L Normal 98-107 [facility] Comment on above: Performed By: #### L AB103, [id number], LAB17 ####Tax Services Manager: MARYLOU MAY ([phone])[facility] [place] ([facility])[address] CO2 [Moles/Vol] 20 mmol/L Low 22-30 [facility] Comment on above: Performed By: #### Weston DAWSON, [id number], LAB17 ####Tax Services Manager: MARYLOU MAY ([phone])[facility] [place] ([facility])[address] Creatinine [Mass/Vol] 1.54 mg/dL High 0.52-1.04 [facility] Comment on above: Performed By: #### L AB103, [id number], LAB17 ####Tax Services Manager: MARYLOU MAY ([phone])[facility] [place] ([facility])[address] [place] [address] [place] GLOMERULAR FILTRATION RATE ML/MIN/1.73 SQ M.PREDICTED 33.2 mL/min/1.73m*2 Low >60.0 [facility] Comment on above: Result Comment: Calc ulation based on the Chronic Kidney Disease Epidemiology Collaboration (CKD-EPI) equation refit without adjustment for race Performed By: #### L AB103, [id number], LAB17 ####Tax Services Manager: MARYLOU MAY ([phone])[facility] [place] ([facility])[address] [place] [address] [place] Glucose [Mass/Vol] 115 mg/dL High 70-100 [facility] Comment on above: Performed By: #### L ABJovan, [id number], LAB17 ####Tax Services Manager: MARYLOU MAY ([phone])[facility]PITALSimran [place] ([facility])[address] Potassium [Moles/Vol] 5.7 mmol/L High 3.5-5.1 [facility] Comment on above: Performed By: #### Weston DAWSON, [id number], LAB17 ####Tax Services Manager: MARYLOU MAY ([phone])[facility]ITALSimran [place] ([facility])[address] Protein [Mass/Vol] 7.7 g/dL Normal 6.3-8.2 [facility] Comment on above: Performed By: #### Weston DAWSON, [id number], LAB17 ####Tax Services Manager: MARYLOU MAY ([phone])[facility]ITALSim[facility] [place] ([facility])[address] Sodium [Moles/Vol] 135 mmol/L Normal 135-145 [facility] Comment on above: Performed By: #### Weston DAWSON, [id number], LAB17 ####Tax Services Manager: MARYLOU MAY ([phone])[facility]ITAL[facility] [place] (SB[facility])[address] Urea nitrogen [Mass/Vol] 29 mg/dL High 7-17 [facility] Comment on above: Performed By: #### Weston DAWSON, [id number], LAB17 ####Tax Services Manager: MARYLOU MAY ([phone])[facility]ITALSim[facility] [place] ([facility])[address] [place] [address] [place] [address] HEAD WO IV CONTRASTon CT HEAD WO IV CONTRAST Normal [facility] CT Head WO contraston 2023 1. No acute finding. Chronic left cerebellar infarct.. Report Dictated on Electronically Signed By: Toño Tang MD Electronically Signed Date/Time: 04/03/2024 9:21 PM EDT [facility] Patient Name: MEL CARVER RD [...] midline shift. No hydrocephalus. Left globe prosthesis. [facility] Toño Tang MD - 04/03/2024 Patient Name: MEL POP : 1940 Exam Date/Time: 04/03/2024 21:06 Procedure: [...] Electronically Signed Date/Time: 04/03/2024 9:21 PM EDT [facility] Radiology Study observation (narrative) [facility] alth CT Head WO contrastOrdered B y: Toño Tang on 04-03-2024 [employer] Work Phone: CTA AORTA BL ILIOFEMORAL W W Oon 04-03-2024 CTA AORTA BL ILIOFEMORAL W WO Normal [facility] [employer] [facility] CTA Thoracic and Abdominal A zachary and Bilateral Runoff Vessels WO and W contrast Cheryl 04-03-2024 1. Severe lower extremity atherosclerotic disease. 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 2. 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 3. Severe diverticulosis. Report Dictated on Electronically Signed By: Toño Tang MD Electronically Signed Date/Time: 04/03/2024 9:36 PM EDT [facility] Patient Name: MEL CARVER RD : 1940 [facility]#: [id number] Exam Date/Time: 04/03/2024 21:14 Procedure: CTA AORTA [...] 04/03/2024 [facility] 1940 [id number] Exam Date/Time: 04/03/2024 21:14 Procedure: CTA AORTA [...] Electronically Signed Date/Time: 04/03/2024 9:36 PM EDT [facility] Radiology Study observation (narrative) [facility] metabolic 1998 panelon 04-03-2024 Albumin [Mass/Vol] 4.3 g/dL 3.5 - 5.0 g/dL [facility] ALP [Catalytic activity/Vol] 91 U/L 38 - 126 U/L [facility] ALT [Catalytic activity/Vol] 10 U/L 0 - 34 U/L [facility] Anion gap [Moles/Vol] 9 mmol/L 3 - 13 mmol/L [facility] AST [Catalytic activity/Vol] 19 U/L 15 - 46 U/L [facility] Bilirubin [Mass/Vol] 1.1 mg/dL 0.2 - 1 .3 mg/dL [facility] Calcium [Mass/Vol] 9.3 mg/dL 8.4 - 10. 4 mg/dL [facility] Chloride [Moles/Vol] 107 mmol/L 98 - 10 7 mmol/L [facility] CO2 [Moles/Vol] 20 mmol/L Low 22 - 30 mmol/L [facility] Creatinine [Mass/Vol] 1.54 mg/dL High 0.52 - 1.04 mg/dL [facility] GFR/1.73 sq M.predicted (S/P/Bld) [Vol rate/Area] 33.2 mL/min Low - PINF [facility] Comment on above: Calculation based on the Chronic Kidney Disease Epidemiology Collaboration (CKD-EPI) equation refit without adjustment for race Glucose [Mass/Vol] 115 mg/dL High 70 - 100 mg/dL [facility] Interpretation and review of laboratory results Abnormal [facility] Potassium [Moles/Vol] 5.7 mmol/L High 3.5 - 5.1 mmol/L [facility] Protein [Mass/Vol] 7.7 g/dL 6.3 - 8.2 g/dL [facility] Sodium [Moles/Vol] 135 mmol/L 135 - 145 mmol/L [facility] Urea nitrogen [Mass/Vol] 29 mg/dL High 7 - 17 mg/dL [facility] ED Nursing Noteon 04-03-2024 ED Nursing Note Normal [facility] ED Provider Noteon ED [facility] Laboratory - Chemistry and C hemistry - challengeon 04-03-2024 Troponin I.cardiac [Mass/Vol] 0.014 ng/mL NINF - 0.034 ng/mL [facility] Magnesium [Mass/Vol] 2.3 mg/dL 1.6 - 2 .3 mg/dL [facility] Laboratory - Coagulationon 0 04-03-2024 aPTT Coag (PPP) [Time] 26.7 s 20.0 - 30.5 s [facility] INR Coag (PPP) [Relative time] 1.0 {INR} 0.9 - 1.1 [facility] Comment on above: Recommended Anticoag ulant [...] 11.7 s 9.0 - 1 2.0 s [facility] MAGNESIUMon 04-03-2024 Magnesium [Mass/Vol] 2.3 mg/dL Normal 1.6-2.3 [facility] Comment on above: Performed By: #### L AB103, [id number], LAB17 ####Tax Services Manager: MARYLOU MAY ([phone])[facility] ([facility])[address] [place] [address] Magnesium [Mass/Vol]on 04-03 Interpretation and review of laboratory results Normal [facility] No Panel Informationon 04-03 [facility] Interpretation and review of laboratory results Normal [facility] PROTIME AND APTTon aPTT Coag (Bld) [Time] 26.7 s Normal 20.0-30.5 [facility] Comment on above: Performed By: #### L [id number] ####Tax Services Manager: MARYLOU MAY ([phone])[facility] ([facility])[address] INR Coag (PPP) [Relative time] 1.0 {INR} Normal 0.9-1.1 [facility] Comment on above: Result [...] prevent Myocardial Infarction Performed By: #### L [id number] ####Tax Services Manager: MARYLOU MAY ([phone])[facility] ([facility])[address] [place] [address] PT Coag (PPP) [Time] 11.7 s Normal 9.0-12.0 [facility] Comment on above: Performed By: #### L [id number] ####Tax Services Manager: MARYLOU MAY ([phone])[facility] ([facility])[address] [place] [address] TROPONIN Ion 04-03-2024 Troponin I.cardiac [Mass/Vol] 0.014 ng/mL Normal <0.034 [facility] Comment on above: Result Comment: BUBBA Garcia COMMENTS:Patients with high levels of Biotin oral intake (ie >5 mg/day) may have falsely decreased Troponin levels. Performed By: #### L AB103, [id number], LAB17 ####Tax Services Manager: MARYLOU MAY ([phone])[facility] ([facility])[address] [place] [address] Troponin I.cardiac [Mass/Vol ]on 04-03-2024 Interpretation and review of laboratory results Normal [facility] Patients with high levels of Biotin oral intake (ie >5 mg/day) may have falsely decreased Troponin levels. [facility] aPTT Coag (Bld) [Time]on aPTT Coag (PPP) [Time] 25.6 s 20.0 - 30.5 s [facility] Interpretation and review of laboratory results Normal [facility] NOTE: The therapeuti c time for Heparin anticoagulation, based on Xa activity inhibition, is an APTT of 46-80 seconds. [facility] MR Lower leg - left [...] Electronically Signed Date/Time: 06/16/2023 8:10 AM EST [facility] Patient Name: MEL CARVER RD : [...] and lateral ankle resulting from ORIF hardware. [facility] Dimas Woodward MD - 06/16/2023 Patient [...] MD Electronically Signed Date/Time: 06/16/2023 8:10 AM [employer] MR Lower leg - left WO and W contrast IVOrdered By: Dimas Woodward on 06-16-2023 [facility] [employer] Work Phone: MR Lower leg - left WO and W contrast Cheryl 06-15-2023 Radiology Study observation (narrative) [facility] alth No Panel Informationon 05-24 No evidence of venous thrombus in the left lower extremity. Report Dictated on Electronically Signed By: Yasmany Whyte MD Electronically Signed Date/Time: 05/24/2023 11:42 AM [employer] Patient Name: MEL CARVER RD : [...] Electronically Signed Date/Time: 05/24/2023 11:[address] Neck W contrast Cheryl 02-16 Patient [...] MD Electronically Signed Date/Time: 03/11/2023 10:28 AM T [facility] RADIOLOGY SYSTEM Efrain Yi MD - 03/11/2023 [facility] Name[facility] 1940 [id number] Exam Date/Time: 03/08/2023 11:33 Procedure: CT SOFT [...] MD Electronically Signed Date/Time: 03/11/2023 10:28 AM [facility] CT Neck W contrast IVOrdered By: Efrain Yi on 03-11-2023 [employer] Work Phone: CT Neck W contrast Cheryl 02-16 Radiology Study observation (narrative) [facility] US Head and neck soft tissue on 02-24-2023 Indeterminate soft tissue nodules in the patients area of palpable concern in the left neck, which may represent enlarged left submandibular gland with obstructing sialolith and adjacent enlarged lymph node. Recommend further evaluation with contrast-enhanced neck CT. Report Dictated on Electronically Signed By: Ryan Mccollum MD Electronically Signed Date/Time: 02/24/2023 8:23 AM EDT [facility] Patient Name: MEL CARVER RD : [...] measuring 1.8 x 1.6 x 1.4 cm. [facility] Ryan Mccollum MD - 02/24/2023 Patient [...] Electronically Signed Date/Time: 02/24/2023 8:23 AM EDT [facility] US Head and neck soft tissue Ordered By: Ryan Mccollum on 02-24-2023 [employer] Work Phone: US Head and neck soft tissue on 02-22-2023 Radiology Study observation (narrative) [facility] CONSULT PROGon 06-29-2022 CONSULT PROG HNO ID: [id number] Author: Nemo Petty APRN.SCHOOL NURSE Service: Wound/Ostomy Author Type: Nurse Practitioner Type: Consult Progress Note Filed: 06/29/2022 12:51 PM Note Text: WOUND CARE SERVICE PROGRESS ELECTRIC METER REPAIRER HELPER NOTE SERVICE DATE: 06/29/2022 SERVICE TIME: 10:20 TIME SPENT (minutes): 30 REASON FOR CONSULT: follow up wound care visit to reassess skin/wounds CHIEF COMPLAINT: right finger wound Subjective HISTORY OF PRESENT ILLNESS: Ms. Jose Alberto Castillo is a 81 year old female who is seen today with Delia Bruno, Wound/extras casting director, as a follow up wound care visit [...] Wound Image Site Assessment Red;Intact Allie-Wound Assessment [place] Drainage Amount None Treatments Protective Barrier Ointment Dressing Foam- Adhesive Active Orders Date Order Priority Status Authorizing Provider 06/28/22 1423 zinc oxide 20 % ointment Active Iwona Chu, 06/21/22 1248 DRESSING CARE (SPECIFY) ([place]) Routine Active Fidel Carmen APRN.SCHOOL NURSE - Specify:: Apply allevyn foam to coccyx, peel down every shift to assess skin and to apply zinc oxide, change every 3 days or if soiled. 06/21/22 1248 zinc oxide 20 % Active Fidel Carmen APRN.SCHOOL NURSE Wound 06/16/22 Incision Knee Left;Posterior (Active) Assessments 06/29/2022 10:27 AM Wound Image Site Assessment Dry;Intact Allie-Wound Assessment Intact Closure Sutures Drainage Amount None Treatments Open to Air No Linked orders to display Wound 06/21/22 0948 Atypical Wound Finger (Comment which one) Right (Active) Assessments 06/29/2022 10:23 AM Wound Image Site Assessment Red;[place] Allie-Wound Assessment Intact Wound Length (cm) 2 cm Wound Width (cm) 2.5 cm Wound Surface Area (cm2) 5 cm2 Wound Depth (cm) 0.1 cm Wound Volume (cm3) 0.5 (more content not included)... Normal [facility] NUTRITIONon 06-29-2022 NUTRITION HNO ID: [id number] Author: Iwona Pelayo RD Service: Nutrition Therapy Author Type: Registered Dietitian Type: Nutrition Filed: 06/29/2022 1:38 PM Note Text: NUTRITION THERAPY PROGRESS NOTE SERVICE DATE: 06/29/2022 SERVICE TIME: 13:30 Nutrition Assessment: Recommended Malnutrition Diagnosis: No Malnutrition Identified (06/23/22 1109 : Parul Mcallister RD) Estimated kilocalorie needs: 2692-0082 Calorie Calculation Method: 25-30 kcals/kg Estimated protein [...] DATE: June 29, 2022 TIME: 10:17 AM [facility] PT EDon 06-29-2022 PT ED HNO ID: [id number] Author: Joana Tolbert RPh Service: Pharmacy Author [...] tolerating anticoag therapy (thrombi) RN and outpatient [facility] pharmacy aware medications [...] information Outcomes not met: N/A Joana Tolbert [facility] CNDSon 06-28-2022 [facility] HNO ID: [id number] Author: Iwona Chu DO Service: Hospital Medicine [...] micropuncture needle and serially upsized to a 5-Georgian sheath. A venogram was then performed, which [...] time, the sheath was upsized to an 8-Georgian sheath. An intravascular ultrasound was performed. This [...] treatment with antibiotics. # tobacco Recently quit 2009 Encourage complete cessation # hypoxia on exertion-needs [...] NURSING PROGon 06-28-2022 NURSING PROG HNO ID: [id number] Author: John Castro RN Service: Nursing Author [...] above: Performed By: #### 3 2355-0 #### [facility] CLIA [id number] [address] STATES OF [facility] CONSULT PROGon 06-25-2022 CONSULT PROG HNO ID: [id number] Author: Cirilo Yip RPh Service: Pharmacy Author Type: Pharmacist Type: Consult Progress Note Filed: 06/25/2022 1:49 PM Note Text: PHARMACY ORAL ANTICOAGULATION PATIENT EDUCATION NOTE Oral anticoagulant: apixaban Indication: DVT/PE Patient New to medication: Yes LEARNERS Persons Present: Patient Primary Learner: Patient Grinder Set Up Operator Jig Present: No Patient educated on the followin. [...] on above: Performed By: #### 3 2355-0 ####[facility]ATORYCLIA [id number] [place] [address] [place] Basic metabolic 2000 panelon 06-24-2022 Anion gap [Moles/Vol] 10 mmol/L Normal 9-18 [facility] Comment on above: Order Comment: Speci men Type: BLOOD SPECIMENOrdering Facility: [facility] Address: [address] [place] [id number] Performed By: #### 2 4321-2, 59020-7 ####[facility]ATORYCLIA [id number] [place] [address] [place] Calcium [Mass/Vol] 9.0 mg/dL Normal 8.5-10.2 [facility] Comment on above: Order Comment: Speci men Type: BLOOD SPECIMENOrdering Facility: [facility] Address: [address] [place] [address] Performed By: #### 2 4321-2, 12157-4 ####[facility] [id number] [place] [address] [place] Chloride [Moles/Vol] 103 mmol/L Normal 97-105 [facility] Comment on above: Order Comment: Speci men Type: BLOOD SPECIMENOrdering Facility: [facility] Address: [address] [place] [address] Performed By: #### 2 4321-2, 44550-4 ####[facility]ORYCLIA [id number] [address] [place] CO2 [Moles/Vol] 23 mmol/L Normal 22-30 [facility] Comment on above: Order Comment: Speci men Type: BLOOD SPECIMENOrdering Facility: [facility] Address: [address] [place] [address] Performed By: #### 2 4321-2, 11869-5 ####[facility]ORYCLIA [id number] [address] [place] Creatinine [Mass/Vol] 0.73 mg/dL Normal 0.58-0.96 [facility] Comment on above: Order Comment: Speci men Type: BLOOD SPECIMENOrdering Facility: [facility] Address: [address] [place] [address] Performed By: #### 2 4321-2, 24316-9 ####[facility]ATORYCLIA [id number] [address] OF [place] ESTIMATED GLOMERULAR FILTRATION RATE 82 mL/min/1.73m??? Normal >=60 [facility] Comment on above: Order Comment: Speci men Type: BLOOD SPECIMENOrdering Facility: [facility] Address: [address] [place] [address] Result Comment: Isa mated Glomerular Filtration Rate [...] actual GFR. Performed By: #### 2 4321-2, 20611-5 ####[facility]ATORYCLIA [id number] [place] [address] [place] Glucose [Mass/Vol] 165 mg/dL High 74-99 [facility] Comment on above: Order Comment: Rhina mason Type: BLOOD SPECIMENOrdering Facility: [facility] Address: [address] [place], [place] [address] Result Comment: The [place] Diabetes Association (ADA) provides guidance for cutoff [...] Standards of Medical Care in Diabetes 2016, [place] [employer] Association. Diabetes Care. 2016.39(Suppl 1). Performed By: #### 2 4321-2, 26815-1 ####[facility]ATORYCLIA [id number] [place] [id number] [place] Potassium [Moles/Vol] 5.0 mmol/L Normal 3.7-5.1 [facility] Comment on above: Order Comment: Rhina mason Type: BLOOD SPECIMENOrdering Facility: [facility] Address: [address] [phone] Performed By: #### 2 4321-2, 46853-3 ####[facility]ORATORYCLIA [id number] [place] [address] [place] Sodium [Moles/Vol] 136 mmol/L Normal 136-144 [facility] Comment on above: Order Comment: Speci men Type: BLOOD SPECIMENOrdering Facility: [facility] Address: [address] [place] [address] Performed By: #### 2 4321-2, 03997-3 ####[facility]ATORYCLIA [id number] [address] STATES [facility] Urea nitrogen [Mass/Vol] 14 mg/dL Normal 7-21 [facility] Comment on above: Order Comment: Speci men Type: BLOOD SPECIMENOrdering Facility: [facility] Address: [address] [place] [address] Performed By: #### 2 4321-2, 57957-5 ####[facility]ATORYCLIA [id number] [address] OF [facility] CBC panel Auto (Bld)on 06-24 Erythrocyte distribution width (RBC) [Ratio] 17.0 % High 11.5-15.0 [facility] Comment on above: Order Comment: Speci men Type: BLOOD SPECIMENOrdering Facility: [facility] Address: [address] [place] [address] Performed By: #### 5 8410-2 ####[facility]ATORYCLIA [id number] [address] [place] Hematocrit (Bld) [Volume fraction] 27.2 % Low 36.0-46.0 [facility] Comment on above: Order Comment: Speci men Type: BLOOD SPECIMENOrdering Facility: [facility] Address: [address] [place] [address] Performed By: #### 5 8410-2 ####[facility]ATORYCLIA [id number] [address] [place] Hemoglobin (Bld) [Mass/Vol] 8.9 g/dL Low 11.5-15.5 [facility] Comment on above: Order Comment: Speci men Type: BLOOD SPECIMENOrdering Facility: [facility] Address: [address] [place] [address] Performed By: #### 5 8410-2 ####[facility]ATORYCLIA [id number] [address] MCH (RBC) [Entitic mass] 30.9 pg Normal 26.0-34.0 [facility] Comment on above: Order Comment: Speci men Type: BLOOD SPECIMENOrdering Facility: [facility] Address: [address] [address] Performed By: #### 5 8410-2 ####[facility]ATORYCLIA [id number] [address] MCHC (RBC) [Mass/Vol] 32.7 g/dL Normal 30.5-36.0 [facility] Comment on above: Order Comment: Speci men Type: BLOOD SPECIMENOrdering Facility: [facility] Address: [address] [address] Performed By: #### 5 8410-2 ####[facility]ATORYCLIA [id number] [address] MCV (RBC) [Entitic vol] 94.4 fL Normal 80.0-100.0 [facility] Comment on above: Order Comment: Speci men Type: BLOOD SPECIMENOrdering Facility: [facility] Address: [address] [address] Performed By: #### 5 8410-2 ####[facility]ATORYCLIA [id number] [address] Nucleated RBC (Bld) [#/Vol] 0.03 10*3/uL High <0.01 [facility] Comment on above: Order Comment: Speci men Type: BLOOD SPECIMENOrdering Facility: [facility] Address: [address] [address] Performed By: #### 5 8410-2 ####[facility]ATORYCLIA [id number] [address] Platelet mean volume (Bld) [Entitic vol] 9.8 fL Normal 9.0-12.7 [facility] Comment on above: Order Comment: Speci men Type: BLOOD SPECIMENOrdering Facility: [facility] Address: [address] [place] [address] Performed By: #### 5 8410-2 ####[facility]ORATORYCLIA [id number] [address] [place] Platelets (Bld) [#/Vol] 241 10*3/uL Normal 150-400 [facility] Comment on above: Order Comment: Speci men Type: BLOOD SPECIMENOrdering Facility: [facility] Address: [address] [place] [address] Performed By: #### 5 8410-2 ####[facility]ORATORYCLIA [id number] [place] [address] [place] RBC (Bld) [#/Vol] 2.88 10*6/uL Low 3.90-5.20 [facility] Comment on above: Order Comment: Speci men Type: BLOOD SPECIMENOrdering Facility: [facility] Address: [address] [place] [address] Performed By: #### 5 8410-2 ####[facility]ATORYCLIA [id number] [address] WBC (Bld) [#/Vol] 6.37 10*3/uL Normal 3.70-11.00 [facility] Comment on above: Order Comment: Speci men Type: BLOOD SPECIMENOrdering Facility: [facility] Address: [address] [place] [address] Performed By: #### 5 8410-2 ####[facility]ORATORYCLIA [id number] [address] NT-proBNP [facility] 06-24 Natriuretic peptide.B prohormone N-Terminal [Mass/Vol] 2971 pg/mL High <450 [facility] Comment on above: Order Comment: Speci men Type: BLOOD SPECIMENOrdering Facility: [facility] Address: [address] [place] [address] Performed By: #### 2 4321-2, 62052-9 ####[facility]ATORYCLIA [id number] [address] aPTT PPPon 06-24-2022 aPTT Coag (PPP) [Time] 64.2 s High 23.0-32.4 [facility] Comment on above: Order Comment: Speci men Type: BLOOD SPECIMEN [facility] Address: [address] [place] [address] Performed By: #### T SCR #### [facility] CLIA [id number] [address] aPTT Coag (PPP) [Time] 45.8 s High 23.0-32.4 [facility] Comment on above: Order Comment: Speci men Type: BLOOD SPECIMENOrdering Facility: [facility] Address: [address] [place] [address] Performed By: #### 3 2355-0 #### [facility] CLIA [id number] [address] aPTT Coag (PPP) [Time] 116.8 s High 28.5-34.0 [facility] Comment on above: Order Comment: Speci men Type: BLOOD SPECIMENOrdering Facility: [facility] Address: [address] [place] [address] Performed By: #### 1 4979-9 ####[facility]ATORYCLIA [id number] [address] ALLIED HEALTHon 06-23-2022 ALLIED HEALTH HNO ID: [id number] Author: RT Rhina(R) Service: Radiology Author Type: [...] Comment: Rhina mason Type: BLOOD SPECIMENOrdering Facility: [facility] Address: [address] [place] [address] Performed By: #### 5 8410-2 ####[facility]ATORYCLIA [id number] [address] [place] Hematocrit (Bld) [Volume fraction] 29.6 % Low 36.0-46.0 [facility] Comment on above: Order Comment: Rhina mason Type: BLOOD SPECIMENOrdering Facility: [facility] Address: [address] [place] [address] Performed By: #### 5 8410-2 ####[facility]ATORYCLIA [id number] [place] [address] [place] Hemoglobin (Bld) [Mass/Vol] 9.5 g/dL Low 11.5-15.5 [facility] Comment on above: Order Comment: Rhina mason Type: BLOOD SPECIMENOrdering Facility: [facility] Address: [address] [place] [address] Performed By: #### 5 8410-2 ####[facility]ATORYCLIA [id number] [address] [place] MCH (RBC) [Entitic mass] 30.4 pg Normal 26.0-34.0 [facility] Comment on above: Order Comment: Speci men Type: BLOOD SPECIMENOrdering Facility: [facility] Address: [address] [place] [address] Performed By: #### 5 8410-2 ####[facility]ATORYCLIA [id number] [address] MCHC (RBC) [Mass/Vol] 32.1 g/dL Normal 30.5-36.0 [facility] Comment on above: Order Comment: Speci men Type: BLOOD SPECIMENOrdering Facility: [facility] Address: [address] [place] [address] Performed By: #### 5 8410-2 ####[facility]ATORYCLIA [id number] [address] [place] MCV (RBC) [Entitic vol] 94.6 fL Normal 80.0-100.0 [facility] Comment on above: Order Comment: Speci men Type: BLOOD SPECIMENOrdering Facility: [facility] Address: [address] [place] [address] Performed By: #### 5 8410-2 ####[facility]ATORYCLIA [id number] [address] Nucleated RBC (Bld) [#/Vol] 0.07 10*3/uL High <0.01 [facility] Comment on above: Order Comment: Speci men Type: BLOOD SPECIMENOrdering Facility: [facility] Address: [address] [place] [address] Performed By: #### 5 8410-2 ####[facility]ATORYCLIA [id number] [address] Platelet mean volume (Bld) [Entitic vol] 9.9 fL Normal 9.0-12.7 [facility] Comment on above: Order Comment: Speci men Type: BLOOD SPECIMENOrdering Facility: [facility] Address: [address] [place] [address] Performed By: #### 5 8410-2 ####[facility] SERVICESCLIA [id number] [place] [address] [place] Platelets (Bld) [#/Vol] 241 10*3/uL Normal 150-400 [facility] Comment on above: Order Comment: Speci men Type: BLOOD SPECIMENOrdering Facility: [facility] Address: [address] [place] [address] Performed By: #### 5 8410-2 ####[facility]ATORYCLIA [id number] [address] [place] RBC (Bld) [#/Vol] 3.13 10*6/uL Low 3.90-5.20 [facility] Comment on above: Order Comment: Speci men Type: BLOOD SPECIMENOrdering Facility: [facility] Address: [address] [place] [address] Performed By: #### 5 8410-2 ####[facility]ORATORYCLIA [id number] [address] WBC (Bld) [#/Vol] 6.86 10*3/uL Normal 3.70-11.00 [facility] Comment on above: Order Comment: Speci men Type: BLOOD SPECIMENOrdering Facility: [facility] Address: [address] [place] [address] Performed By: #### 5 8410-2 ####[facility]ATORYCLIA [id number] [address] NUTRITIONon 06-23-2022 NUTRITION HNO ID: [id number] Author: Parul Mcallister RD Service: Nutrition Therapy Author Type: Registered Dietitian Type: Nutrition Filed: 06/23/2022 2:28 PM Note Text: NUTRITION THERAPY INITIAL ASSESSMENT SERVICE DATE: 06/23/2022 SERVICE TIME: 11:09 AM Nutrition Assessment: Recommended Malnutrition Diagnosis: No Malnutrition Identified Nutrition Diagnosis: Problem: Suboptimal protein/energy intake Related to: Inability to consume sufficient nutrients As evidenced by: Patient/family self-report;Intake records Estimated kilocalorie needs: 7196-7602 Calorie Calculation Method: 25-30 kcals/kg Estimated protein [...] sites of pneumonia. Small bilateral pleural effusions. Veterans Employment Representative: [facility] HOSPITALYoan Transcribe Date/Time: Jun 24 2022 6:34A Dictated by : DI MINER MD This examination was interpreted and the report reviewed and electronically signed by: DI MINER MD on Jun 24 2022 6:36AM EST [id number] Normal [facility] aPTT PPPon 06-23-2022 aPTT Coag (PPP) [Time] 46.7 s High 23.0-32.4 [facility] Comment on above: Order Comment: Speci men Type: BLOOD SPECIMENOrdering Facility: [facility] Address: [address] [place] [address] Performed By: #### 1 4979-9 ####[facility]ORATORYCLIA [id number] [address] [place] aPTT Coag (PPP) [Time] 53.8 s High 23.0-32.4 [facility] Comment on above: Order Comment: Speci men Type: BLOOD SPECIMENOrdering Facility: [facility] Address: [address] [place] [address] Performed By: #### 1 4979-9 ####[facility]ORATORYCLIA [id number] [address] STATES OF [facility] aPTT Coag (PPP) [Time] 114.5 s High 23.0-32.4 [facility] Comment on above: Order Comment: Speci men Type: BLOOD SPECIMEN [facility] Address: [address] [place] [address] Performed By: #### T SCR #### [facility] CLIA [id number] [address] STATES OF [facility] CBC W Auto Differential pane l (Bld)on 06-22-2022 Basophils (Bld) [#/Vol] 0.03 10*3/uL Normal <0.11 [facility] Comment on above: Order Comment: Speci men Type: BLOOD SPECIMENOrdering Facility: [facility] Address: [address] [place] [address] Result Comment: Diff erential confirmed by visual scan of peripheral blood smear slide Performed By: #### 5 7021-8 ####[facility]ORATORYCLIA [id number] [address] [place] Basophils/100 WBC (Bld) 0.5 % Normal A [facility] Comment on above: Order Comment: Speci men Type: BLOOD SPECIMENOrdering Facility: [facility] Address: [address] [place] [address] Performed By: #### 5 7021-8 ####[facility]ORATORYCLIA [id number] [address] Differential cell count method Nom (Bld) Auto Normal [facility] Comment on above: Order Comment: Speci men Type: BLOOD SPECIMENOrdering Facility: [facility] Address: [address] [place] [address] Performed By: #### 5 7021-8 ####[facility]ORATORYCLIA [id number] [place] [address] [place] Eosinophils (Bld) [#/Vol] 10*3/uL Normal <0.46 [facility] Comment on above: Order Comment: Speci men Type: BLOOD SPECIMENOrdering Facility: [facility] Address: [address] [address] Performed By: #### 5 7021-8 ####[facility]ORATORYCLIA [id number] [address] Eosinophils/100 WBC (Bld) 0.0 % Normal [facility] Comment on above: Order Comment: Speci men Type: BLOOD SPECIMENOrdering Facility: [facility] Address: [address] [place] [address] Performed By: #### 5 7021-8 ####[facility]ORATORYCLIA [id number] [address] Erythrocyte distribution width (RBC) [Ratio] 16.2 % High 11.5-15.0 [facility] Comment on above: Order Comment: Speci men Type: BLOOD SPECIMENOrdering Facility: [facility] Address: [address] [place] [address] Performed By: #### 5 7021-8 ####[facility] LABORATORYCLIA [id number] [address] Hematocrit (Bld) [Volume fraction] 25.1 % Low 36.0-46.0 [facility] Comment on above: Order Comment: Speci men Type: BLOOD SPECIMENOrdering Facility: [facility] Address: [address] [place] [address] Performed By: #### 5 7021-8 ####[facility] LABORATORYCLIA [id number] [address] Hemoglobin (Bld) [Mass/Vol] 8.4 g/dL Low 11.5-15.5 [facility] Comment on above: Order Comment: Speci men Type: BLOOD SPECIMENOrdering Facility: [facility] Address: [address] [place] [address] Performed By: #### 5 7021-8 ####[facility] LABORATORYCLIA [id number] [address] [place] Immature granulocytes (Bld) [#/Vol] 0.60 10*3/uL High <0.10 [facility] Comment on above: Order Comment: Speci men Type: BLOOD SPECIMENOrdering Facility: [facility] Address: [address] [address] Performed By: #### 5 7021-8 ####[facility]ORATORYCLIA [id number] [address] STATES OF [facility] Immature granulocytes/100 WBC (Bld) 10.3 % Normal [facility] Comment on above: Order Comment: Speci men Type: BLOOD SPECIMENOrdering Facility: [facility] Address: [address] [place] [address] Performed By: #### 5 7021-8 ####[facility] LABORATORYCLIA [id number] [address] [place] Lymphocytes (Bld) [#/Vol] 1.38 10*3/uL Normal 1.00-4.00 [facility] Comment on above: Order Comment: Speci men Type: BLOOD SPECIMENOrdering Facility: [facility] Address: [address] [place] [address] Performed By: #### 5 7021-8 ####[facility] LABORATORYCLIA [id number] [address] Lymphocytes/100 WBC (Bld) 23.7 % Normal [facility] Comment on above: Order Comment: Speci men Type: BLOOD SPECIMENOrdering Facility: [facility] Address: [address] [place] [address] Performed By: #### 5 7021-8 ####[facility]ORATORYCLIA [id number] [address] [place] MCH (RBC) [Entitic mass] 31.2 pg Normal 26.0-34.0 [facility] Comment on above: Order Comment: Speci men Type: BLOOD SPECIMENOrdering Facility: [facility] Address: [address] [place] [address] Performed By: #### 5 7021-8 ####[facility]ATORYCLIA [id number] [address] [place] MCHC (RBC) [Mass/Vol] 33.5 g/dL Normal 30.5-36.0 [facility] Comment on above: Order Comment: Speci men Type: BLOOD SPECIMENOrdering Facility: [facility] Address: [address] [place] [address] Performed By: #### 5 7021-8 ####[facility] LABORATORYCLIA [id number] [address] OF [facility] MCV (RBC) [Entitic vol] 93.3 fL Normal 80.0-100.0 [facility] Comment on above: Order Comment: Speci men Type: BLOOD SPECIMENOrdering Facility: [facility] Address: [address] [place] [address] Performed By: #### 5 7021-8 ####[facility] LABORATORYCLIA [id number] [address] [place] Monocytes (Bld) [#/Vol] 0.50 10*3/uL Normal <0.87 [facility] Comment on above: Order Comment: Speci men Type: BLOOD SPECIMENOrdering Facility: [facility] Address: [address] [place] [address] Performed By: #### 5 7021-8 ####[facility] LABORATORYCLIA [id number] [address] OF [facility] Monocytes/100 WBC (Bld) 8.6 % Normal [facility] Comment on above: Order Comment: Speci men Type: BLOOD SPECIMENOrdering Facility: [facility] Address: [address] [place] [address] Performed By: #### 5 7021-8 ####[facility] LABORATORYCLIA [id number] [address] [place] Neutrophils (Bld) [#/Vol] 3.31 10*3/uL Normal 1.45-7.50 [facility] Comment on above: Order Comment: Speci men Type: BLOOD SPECIMENOrdering Facility: [facility] Address: [address] [address] Performed By: #### 5 7021-8 ####[facility] LABORATORYCLIA [id number] [address] [place] Neutrophils/100 WBC (Bld) 56.9 % Normal [facility] Comment on above: Order Comment: Speci men Type: BLOOD SPECIMENOrdering Facility: [facility] Address: [address] [place] [address] Performed By: #### 5 7021-8 ####[facility] LABORATORYCLIA [id number] [address] [place] Nucleated RBC (Bld) [#/Vol] 0.10 10*3/uL High <0.01 [facility] Comment on above: Order Comment: Speci men Type: BLOOD SPECIMENOrdering Facility: [facility] Address: [address] [place] [address] Performed By: #### 5 7021-8 ####[facility] LABORATORYCLIA [id number] [address] [place] Nucleated RBC/100 WBC (Bld) [Ratio] 1.7 /100 WBC Normal [facility] Comment on above: Order Comment: Speci men Type: BLOOD SPECIMENOrdering Facility: [facility] Address: [address] [place] [address] Performed By: #### 5 7021-8 ####[facility] LABORATORYCLIA [id number] [place] [address] [place] Platelet mean volume (Bld) [Entitic vol] 9.7 fL Normal 9.0-12.7 [facility] Comment on above: Order Comment: Speci men Type: BLOOD SPECIMENOrdering Facility: [facility] Address: [address] [place] [address] Performed By: #### 5 7021-8 ####[facility] LABORATORYCLIA [id number] [place] [address] [place] Platelets (Bld) [#/Vol] 209 10*3/uL Normal 150-400 [facility] Comment on above: Order Comment: Speci men Type: BLOOD SPECIMENOrdering Facility: [facility] Address: [address] [place] [address] Performed By: #### 5 7021-8 ####[facility] LABORATORYCLIA [id number] [address] RBC (Bld) [#/Vol] 2.69 10*6/uL Low 3.90-5.20 [facility] Comment on above: Order Comment: Speci men Type: BLOOD SPECIMENOrdering Facility: [facility] Address: [address] [place] [address] Performed By: #### 5 7021-8 ####[facility] LABORATORYCLIA [id number] [address] WBC (Bld) [#/Vol] 5.82 10*3/uL Normal 3.70-11.00 [facility] Comment on above: Order Comment: Speci men Type: BLOOD SPECIMENOrdering Facility: [facility] Address: [address] [place] [address] Performed By: #### 5 7021-8 ####[facility] LABORATORYCLIA [id number] [address] CONSULT PROGon 06-22-2022 CONSULT PROG HNO ID: [id number] Author: Eliza Martin APRN.NURSING STAFF DEVELOPMENT COORDINATOR Service: Gastroenterology Author Type: Nurse Specialist Type: [...] Comment: Speci men Type: BLOOD SPECIMENOrdering Facility: [facility] Address: [address] [place] [address] Performed By: #### 2 4323-8 ####[facility] LABORATORYCLIA [id number] [address] [place] ALP [Catalytic activity/Vol] 129 U/L High 34-123 [facility] Comment on above: Order Comment: Speci men Type: BLOOD SPECIMENOrdering Facility: [facility] Address: [address] [place] [address] Performed By: #### 2 4323-8 ####[facility] LABORATORYCLIA [id number] [place] [address] [place] ALT With P-5'-P [Catalytic activity/Vol] 21 U/L Normal 7-38 [facility] Comment on above: Order Comment: Speci men Type: BLOOD SPECIMENOrdering Facility: [facility] Address: [address] [address] Performed By: #### 2 4323-8 ####[facility] LABORATORYCLIA [id number] [address] STATES OF [facility] Anion gap [Moles/Vol] 10 mmol/L Normal 9-18 [facility] Comment on above: Order Comment: Speci men Type: BLOOD SPECIMENOrdering Facility: [facility] Address: [address] [address] Performed By: #### 2 4323-8 ####[facility]ORATORYCLIA [id number] [address] STATES OF [facility] AST With P-5'-P [Catalytic activity/Vol] 19 U/L Normal 13-35 [facility] Comment on above: Order Comment: Speci men Type: BLOOD SPECIMENOrdering Facility: [facility] Address: [address] [place] [address] Performed By: #### 2 4323-8 ####[facility]ORATORYCLIA [id number] [address] [place] Bilirubin [Mass/Vol] 0.6 mg/dL Normal 0.2-1.3 [facility] Comment on above: Order Comment: Speci men Type: BLOOD SPECIMENOrdering Facility: [facility] Address: [address] [place] [address] Performed By: #### 2 4323-8 ####[facility] LABORATORYCLIA [id number] [place] [address] [place] Calcium [Mass/Vol] 8.6 mg/dL Normal 8.5-10.2 [facility] Comment on above: Order Comment: Speci men Type: BLOOD SPECIMENOrdering Facility: [facility] Address: [address] [place] [address] Performed By: #### 2 4323-8 ####[facility]ATORYCLIA [id number] [place] [address] [place] Chloride [Moles/Vol] 105 mmol/L Normal 97-105 [facility] Comment on above: Order Comment: Speci men Type: BLOOD SPECIMENOrdering Facility: [facility] Address: [address] [place] [address] Performed By: #### 2 4323-8 ####[facility]ORATORYCLIA [id number] [place] [address] [place] CO2 [Moles/Vol] 21 mmol/L Low 22-30 [facility] Comment on above: Order Comment: Speci men Type: BLOOD SPECIMENOrdering Facility: [facility] Address: [address] [address] Performed By: #### 2 4323-8 ####[facility] FORT WAYNEIA [id number] [address] Creatinine [Mass/Vol] 0.88 mg/dL Normal 0.58-0.96 [facility] Comment on above: Order Comment: Speci isabella Type: BLOOD SPECIMENOrdering Facility: [facility] Address: [address] [address] Performed By: #### 2 4323-8 ####[facility] SERVICESCLIA [id number] [address] ESTIMATED GLOMERULAR FILTRATION RATE 66 mL/min/1.73m??? Normal >=60 [facility] Comment on above: Order Comment: Samirrobson mason Type: BLOOD SPECIMENOrdering Facility: [facility] Address: [address] [place] [address] Result Comment: Isa mated Glomerular Filtration Rate [...] actual GFR. Performed By: #### 2 4323-8 ####[facility] LABORATORYCLIA [id number] [address] Glucose [Mass/Vol] 95 mg/dL Normal 74-99 [facility] Comment on above: Order Comment: Rhina mason Type: BLOOD SPECIMENOrdering Facility: [facility] Address: [address] [place] [address] Result Comment: The [place] [employer] (ADA) provides guidance for cutoff [...] Standards of Medical Care in Diabetes 2016, [place] [employer]. Diabetes Care. 2016.39(Suppl 1). Performed By: #### 2 4323-8 ####[facility] LABORATORYCLIA [id number] [place] [address] [place] Potassium [Moles/Vol] 4.7 mmol/L Normal 3.7-5.1 [facility] Comment on above: Order Comment: Speci men Type: BLOOD SPECIMENOrdering Facility: [facility] Address: [address] [place] [address] Performed By: #### 2 4323-8 ####[facility] LABORATORYCLIA [id number] [place] [address] [place] Protein [Mass/Vol] 5.3 g/dL Low 6.3-8.0 [facility] Comment on above: Order Comment: Speci men Type: BLOOD SPECIMENOrdering Facility: [facility] Address: [address] [place] [address] Performed By: #### 2 4323-8 ####[facility] LABORATORYCLIA [id number] [address] [place] Sodium [Moles/Vol] 136 mmol/L Normal 136-144 [facility] Comment on above: Order Comment: Speci men Type: BLOOD SPECIMENOrdering Facility: [facility] Address: [address] [place] [address] Performed By: #### 2 4323-8 ####[facility] LABORATORYCLIA [id number] [place] [address] [place] Urea nitrogen [Mass/Vol] 7 mg/dL Normal 7-21 [facility] Comment on above: Order Comment: Speci men Type: BLOOD SPECIMENOrdering Facility: [facility] Address: [address] [place] [address] Performed By: #### 2 4323-8 ####[facility] LABORATORYCLIA [id number] [address] H. pylori IgG IA Qlon 2021 H. PYLORI IGG, QUAL Negative Normal Negative [facility] Comment on above: Order Comment: Rhina mason Type: BLOOD SPECIMENOrdering Facility: [facility] Address: [address] [place] [address] Result Comment: Shakeel ot exclude H. pylori infection if the specimen collected 3-4 weeks after onset of symptoms. Performed By: #### 1 7859-0 ####[facility] LABCLIA [id number] [facility] [address] PT panel Coag (PPP)on 2021 INR Coag (PPP) [Relative time] {INR} Low 0.9-1.3 [facility] Comment on above: Order Comment: Specrobson mason Type: BLOOD SPECIMEN [facility] Address: [address] [place] [address] Result Comment: Mayra min K Antagonist (VKA) Therapeutic Range: INR 2 to 3 (Target INR of 2.5) Note: For patients treated with VKA drugs, such as warfarin, the [place] [employer] 2012 Guideline recommends [...] GH, et al. Chest 2012, 141:7S-47S Daren HOYT et al. [facility] 2017, 70: 252-289 Performed By: #### T SCR #### [facility] CLIA [id number] [address] PT Coag (PPP) [Time] 9.9 s Normal 9.7-13.0 [facility] Comment on above: Order Comment: Speci men Type: BLOOD SPECIMEN [facility] Address: [place] [address] Performed By: #### T SCR #### [facility] CLIA [id number] [address] THERAPY NTon 06-22-2022 THERAPY NT HNO ID: [id number] Author: Shannan Segovia, OTR/L Service: Occupational Therapy Author Type: Occupational Therapist Type: Therapy (PT/OT/Speech/Resp) Filed: 06/22/2022 11:27 AM Note Text: Occupational Therapy Evaluation SERVICE DATE: 06/22/2022 SERVICE TIME: 1037 to 1105 ROOM: [place] [address] Recommended Discharge Disposition: Subacute/SNF Recommended Discharge Disposition [...] time Occupational Factors Life 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 Dopplers study was done. 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 Technologist: Azar ELDRIDGE Ordering physician: DWAYNE ZAIDI Interpreting physician: Supriya Ponce MD Final (Updated) RP Veterans Employment Representative: IRENE Transcribe Date/Time: Jun 22 2022 7:12A Dictated by : SUPRIYA PONCE MD This examination was interpreted and the report reviewed and electronically signed by: SUPRIYA PONCE MD on Jun 24 2022 1:27PM EST [id number] Normal [facility] aPTT PPPon 06-22-2022 aPTT Coag (PPP) [Time] 43.0 s High 23.0-32.4 [facility] Comment on above: Order Comment: Speci men Type: BLOOD SPECIMENOrdering Facility: [facility] Address: [address] [place] [address] Performed By: #### 1 4979-9 ####[facility] LABORATORYCLIA [id number] [address] OF [place] aPTT Coag (PPP) [Time] 25.6 s Normal 23.0-32.4 [facility] Comment on above: Order Comment: Speci men Type: BLOOD SPECIMEN [facility] Address: [address] [place] [address] Performed By: #### T SCR #### [facility] CLIA [id number] [address] [place] ANES POSTPROC EVALon 022 ANES POSTPROC EVAL HNO ID: [id number] Author: Olu Vasquez MD Service: Anesthesiology Author Type: Physician Type: Anesthesia Postprocedure Evaluation Filed: 06/21/2022 3:20 PM Note Text: POST ANESTHESIA EVALUATION NOTE : 1940 Procedure Summary Date: 06/21/22 Room / Location: [facility] Anesthesia Start: 1134 Anesthesia Stop: 1158 Procedure: [...] June 21, 2022 TIME: 3:19 PM CSN: [id number] [facility] ANES PRE-OPon 06-21-2022 ANES PRE-OP HNO ID: [id number] Author: Olu Vasquez MD Service: Anesthesiology Author Type: Physician Type: Anesthesia Preprocedure Evaluation Filed: 06/21/2022 11:32 AM Note Text: ANESTHESIOLOGY DAY OF SURGERY NOTE : 1940 Procedure Information Date/Time: 06/21/22 113 Scheduled providers: Sim Elizabeth MD Procedure: EGD DIAGNOSTIC Location: [facility] Estimated body mass index is 26.94 kg/m? [...] and consent discussed: yes. Patient / Responsible Green Party agrees to proceed: yes Patient / [...] within 48 hours of Surgery/Procedure. SIGNATURE: Olu A Talm (more content not included)... Normal [facility] CONSULT PROGon 06-21-2022 CONSULT PROG HNO ID: [id number] Author: Fidel Carmen APRN.SCHOOL NURSE Service: Wound/Ostomy Author Type: Nurse Practitioner Type: Consult Progress Note Filed: 06/21/2022 1:41 PM Note Text: WOUND CARE SERVICE CONSULT ELECTRIC METER REPAIRER HELPER NOTE SERVICE DATE: 06/21/2022 SERVICE TIME: 941 TIME SPENT (minutes): 30 REASON FOR CONSULT: MAD buttocks, atypical wound Right middle finger. CHIEF COMPLAINT: Right middle finger Subjective HISTORY OF PRESENT ILLNESS: Ms. Jose Alberto Castillo is a 81 year old female who is seen today with Delia Bruno, Wound/extras casting director, and presented to hospital with complaints of [...] 06/21/2022 9:57 AM Wound Image Site Assessment [place];Red (small open area noted) Allie-Wound Assessment [place];Intact Drainage Amount None Odor None Treatments Cleansed;Protective Barrier Ointment Dressing Foam- Adhesive Dressing Changed Changed Dressing Status Clean;Dry;Intact Active Orders Date Order Priority Status Authorizing Provider 06/21/22 1248 DRESSING CARE (SPECIFY) ([place]) Routine Active Fidel Carmen APRN.SCHOOL NURSE - Specify:: Apply allevyn foam to coccyx, peel down every shift to assess skin and to apply zinc oxide, change every 3 days or if soiled. 06/21/22 1248 zinc oxide 20 % Active Fidel Carmen APRN.SCHOOL NURSE Wound 06/21/22 0948 Atypical Wound Finger (Comment which one) Right (Active) Assessments 06/21/2022 9:48 AM Wound Image Site Assessment [place];White (shiney) Allie-Wound Assessment Intact Shape irregular Drainage Description Sanguineous (intermittent, per pt.) Drainage Amount None Odor None Treatments Cleansed Dressing Xeroform;Gauze Dr (more content not included)... Normal [facility] Hgb Bld-mCncon 06-21-2022 Hemoglobin (Bld) [Mass/Vol] 6.9 g/dL Low 11.5-15.5 [facility] Comment on above: Order Comment: Speci men Type: BLOOD SPECIMENOrdering Facility: [facility] Address: [address] [place] [id number] Performed By: #### 3 2355-0 #### [facility] CLIA [id number] [address] [place], [place] [id number] [place] OPERATIVE NOon 06-21-2022 OPERATIVE NO HNO ID: [id number] Author: Sim Elizabeth MD Service: Gastroenterology Author Type: Physician Type: Operative Report Filed: 06/21/2022 12:01 PM Note Text: OPERATIVE/PROCEDURE REPORT LOG ID: [id number] Surgery/Procedure Date: 06/21/2022 Incision/Procedure Start Time: 11:44 AM Incision Close/Procedure End Time: 11:49 AM Surgeon(s)/Proceduralis t(s) and Research Engineer Marine Equipment(s): Surgeon(s) and Role: * Sim Elizabeth MD [...] 21, 2022 TIME: 11:53 AM PAGER/CONTACT #: [phone] Normal [facility] THERAPY NTon 06-21-2022 THERAPY NT HNO ID: [id number] Author: Miranda Burroughs PT Service: Physical Therapy Author Type: Physical Therapist Type: Therapy (PT/OT/Speech/Resp) Filed: 06/21/2022 10:12 AM Note Text: Physical Therapy Evaluation SERVICE DATE: 06/21/2022 SERVICE TIME: 831 to 854 ROOM: [place] [address] Recommended Discharge Disposition: Subacute/SNF Recommended Discharge Disposition [...] gait and mobility-other Interventions Provided: Evaluation;Therapeutic Activity (77632) $ Evaluation-Moderate (81566) Billed Units: 1 unit Therapeutic Activity (59949) Treatment Minutes: 8 $ Therapeutic Activity (11452) Billed Units: 1 unit Educated pt on [...] Speci men Type: BLOOD SPECIMEN [facility] Address: [address] [place] [address] Performed By: #### T SCR #### [facility] CLIA [id number] [address] HISTORICAL AB SCR STATUS Negative Normal [facility] Comment on above: Order Comment: Speci men Type: BLOOD SPECIMEN [facility] Address: [address] [place] [address] Performed By: #### T SCR #### [facility] CLIA [id number] [address] Rh Nom (Bld) Positive Normal [facility] Comment on above: Order Comment: Speci men Type: BLOOD SPECIMEN [facility] Address: [address] [place] [address] Performed By: #### T SCR #### [facility] CLIA [id number] [address] TYPE AND SCREEN EXPIRATION 06/24/2022 23:59 Normal [facility] Comment on above: Order Comment: Speci men Type: BLOOD SPECIMEN [facility] Address: [address] [place] [address] Performed By: #### T SCR #### [facility] CLIA [id number] [address] ALLIED HEALTHon 06-20-2022 ALLIED HEALTH HNO ID: [id number] Author: RT Tamica(R) Service: Radiology Author Type: [...] PERIPHERAL IV DATA: Inpatient - refer to [facility] documentation RADIOLOGY DEPARTMENT: CT; Exam(s) Completed: Abdomen/Pelvis SIGNATURE: RT Tamica(R) PATIENT NAME: Mel Castillo DATE: June 20, 2022 TIME: 3:15 PM Normal [facility] Basic metabolic 2000 panelon 06-20-2022 Anion gap [Moles/Vol] 8 mmol/L Low 9-18 [facility] Comment on above: Order Comment: Rhina mason Type: BLOOD SPECIMENOrdering Facility: [facility] Address: [address] [place] [id number] Performed By: #### 2 4321-2 ####[facility] LABORATORYCLIA [id number] [place] [address] [place] Calcium [Mass/Vol] 8.5 mg/dL Normal 8.5-10.2 [facility] Comment on above: Order Comment: Rhina mason Type: BLOOD SPECIMENOrdering Facility: [facility] Address: [address] [place], [place] [phone] Performed By: #### 2 4321-2 ####[facility] LABORATORYCLIA [id number] [address] [place] Chloride [Moles/Vol] 106 mmol/L High 97-105 [facility] Comment on above: Order Comment: Speci men Type: BLOOD SPECIMENOrdering Facility: [facility] Address: [address] [place] [address] Performed By: #### 2 4321-2 ####[facility] LABORATORYCLIA [id number] [address] [place] CO2 [Moles/Vol] 22 mmol/L Normal 22-30 [facility] Comment on above: Order Comment: Speci men Type: BLOOD SPECIMENOrdering Facility: [facility] Address: [address] [place] [address] Performed By: #### 2 4321-2 ####[facility] LABORATORYCLIA [id number] [address] OF [facility] Creatinine [Mass/Vol] 0.84 mg/dL Normal 0.58-0.96 [facility] Comment on above: Order Comment: Speci men Type: BLOOD SPECIMENOrdering Facility: [facility] Address: [address] [place] [address] Performed By: #### 2 4321-2 ####[facility] LABORATORYCLIA [id number] [address] ESTIMATED GLOMERULAR FILTRATION RATE 69 mL/min/1.73m??? Normal >=60 [facility] Comment on above: Order Comment: Speci men Type: BLOOD SPECIMENOrdering Facility: [facility] Address: [address] [place] [address] Result Comment: Isa mated Glomerular Filtration Rate [...] actual GFR. Performed By: #### 2 4321-2 ####[facility] LABORATORYCLIA [id number] [place] [address] [place] Glucose [Mass/Vol] 92 mg/dL Normal 74-99 [facility] Comment on above: Order Comment: Rhina isabella Type: BLOOD SPECIMENOrdering Facility: [facility] Address: [address] [place] [address] Result Comment: The [place] Diabetes Association (ADA) provides guidance for cutoff [...] Standards of Medical Care in Diabetes 2016, [place] [employer]. Diabetes Care. 2016.39(Suppl 1). Performed By: #### 2 4321-2 ####[facility] LABORATORYCLIA [id number] [place] [address] [place] Potassium [Moles/Vol] 4.7 mmol/L Normal 3.7-5.1 [facility] Comment on above: Order Comment: Rhina mason Type: BLOOD SPECIMENOrdering Facility: [facility] Address: [address] [place] [address] Performed By: #### 2 4321-2 ####[facility] LABORATORYCLIA [id number] [place] [id number] [place] Sodium [Moles/Vol] 136 mmol/L Normal 136-144 [facility] Comment on above: Order Comment: Rhina isabella Type: BLOOD SPECIMENOrdering Facility: [facility] Address: [address] [place] [address] Performed By: #### 2 4321-2 ####[facility] LABORATORYCLIA [id number] [address] STATES [facility] Urea nitrogen [Mass/Vol] 16 mg/dL Normal 7-21 [facility] Comment on above: Order Comment: Speci men Type: BLOOD SPECIMENOrdering Facility: [facility] Address: [address] [place] [address] Performed By: #### 2 4321-2 ####[facility]ATORYCLIA [id number] [address] STATES OF [facility] CBC panel Auto (Bld)on 06-20 Erythrocyte distribution width (RBC) [Ratio] 15.9 % High 11.5-15.0 [facility] Comment on above: Order Comment: Speci men Type: BLOOD SPECIMENOrdering Facility: [facility] Address: [address] [place] [address] Performed By: #### 3 2355-0 #### [facility] CLIA [id number] [address] Hematocrit (Bld) [Volume fraction] 23.9 % Low 36.0-46.0 [facility] Comment on above: Order Comment: Speci men Type: BLOOD SPECIMENOrdering Facility: [facility] Address: [address] [place] [address] Performed By: #### 3 2355-0 #### [facility] CLIA [id number] [address] STATES OF [facility] Hemoglobin (Bld) [Mass/Vol] 7.8 g/dL Low 11.5-15.5 [facility] Comment on above: Order Comment: Speci men Type: BLOOD SPECIMENOrdering Facility: [facility] Address: [address] [place] [address] Performed By: #### 3 2355-0 #### [facility] CLIA [id number] [address] MCH (RBC) [Entitic mass] 30.7 pg Normal 26.0-34.0 [facility] Comment on above: Order Comment: Speci men Type: BLOOD SPECIMENOrdering Facility: [facility] Address: [address] [address] Performed By: #### 3 2355-0 #### [facility] CLIA [id number] [address] MCHC (RBC) [Mass/Vol] 32.6 g/dL Normal 30.5-36.0 [facility] Comment on above: Order Comment: Speci men Type: BLOOD SPECIMENOrdering Facility: [facility] Address: [address] [address] Performed By: #### 3 2355-0 #### [facility] CLIA [id number] [address] MCV (RBC) [Entitic vol] 94.1 fL Normal 80.0-100.0 [facility] Comment on above: Order Comment: Speci men Type: BLOOD SPECIMENOrdering Facility: [facility] Address: [address] [place] [address] Performed By: #### 3 2355-0 #### [facility] CLIA [id number] [address] Nucleated RBC (Bld) [#/Vol] 0.09 10*3/uL High <0.01 [facility] Comment on above: Order Comment: Speci men Type: BLOOD SPECIMENOrdering Facility: [facility] Address: [address] [place] [address] Performed By: #### 3 2355-0 #### [facility] CLIA [id number] [address] Platelet mean volume (Bld) [Entitic vol] 9.8 fL Normal 9.0-12.7 [facility] Comment on above: Order Comment: Speci men Type: BLOOD SPECIMENOrdering Facility: [facility] Address: [address] [place] [address] Performed By: #### 3 2355-0 #### [facility] CLIA [id number] [address] [place] [address] [place] Platelets (Bld) [#/Vol] 233 10*3/uL Normal 150-400 [facility] Comment on above: Order Comment: Speci men Type: BLOOD SPECIMENOrdering Facility: [facility] Address: [address] [place] [address] Performed By: #### 3 2355-0 #### [facility] CLIA [id number] [address] [place] RBC (Bld) [#/Vol] 2.54 10*6/uL Low 3.90-5.20 [facility] Comment on above: Order Comment: Speci men Type: BLOOD SPECIMENOrdering Facility: [facility] Address: [address] [place] [address] Performed By: #### 3 2355-0 #### [facility] CLIA [id number] [address] WBC (Bld) [#/Vol] 9.90 10*3/uL Normal 3.70-11.00 [facility] Comment on above: Order Comment: Speci men Type: BLOOD SPECIMENOrdering Facility: [facility] Address: [address] [place] [address] Performed By: #### 3 2355-0 #### [facility] CLIA [id number] [address] CONSULTon 06-20-2022 CONSULT HNO ID: [id number] Author: Christine Edouard MD Service: ? Author [...] DATE OF EXAM: Jun 20 2022 2:57PM [facility] 0530 - CT ABD/PEL W [...] bilateral pleural effusions, larger on the right. Story Reader (topogram) images: No additional findings. IMPRESSION: Acute sigmoid diverticulitis. No evidence of perforation or diverticular abscess. Consolidation and volume loss with bronchial wall thickening in both lower lobes and right middle lobe. Small bilateral pleural effusions, larger on the right. Diffuse subcutaneous edema of the left flank extending into the thigh. Bilateral renal cortical scarring and small cysts. Atherosclerotic arterial and aortic calcifications. Veterans Employment Representative: PSC[employer] Transcribe Date/Time: Jun 20 2022 3:18P [...] Speci men Type: BLOOD SPECIMEN [facility] Address: [address] [place] [address] Performed By: #### T SCR #### [facility] [place] [id number] [address] [place] [address] OF [facility] ALLIED HEALTH 06-19-2022 ALLIED HEALTH HNO ID: [id number] Author: Parul Ryan RN Service: Infection Prevention Author Type: ? Type: Allied Health Filed: 06/19/2022 5:49 PM Note Text: INFECTION PREVENTION NOTE Admission Date: 06/16/2022 Patient meets ?COVID Resolved? criteria and isolation has been discontinued as per CDC guidance. SIGNATURE: Parul Ryan RN PATIENT NAME: Mel Castillo DATE: June 19, 2022 TIME: 5:49 PM PAGER/CONTACT #: Infection Prevention, [id number] Infection Prevention after hours/weekend pager: [phone] Normal [facility] Basic metabolic 2000 panelon 06-19-2022 Anion gap [Moles/Vol] 5 mmol/L Low 9-18 [facility] Comment on above: Order Comment: Speci men Type: BLOOD SPECIMENOrdering Facility: [facility] Address: [address] [address] Performed By: #### 3 2355-0 #### [facility] CLIA [id number] [address] [place] Calcium [Mass/Vol] 8.1 mg/dL Low 8.5-10.2 [facility] Comment on above: Order Comment: Speci men Type: BLOOD SPECIMENOrdering Facility: [facility] Address: [address] [address] Performed By: #### 3 2355-0 #### [facility] CLIA [id number] [address] [place] Chloride [Moles/Vol] 105 mmol/L Normal 97-105 [facility] Comment on above: Order Comment: Speci men Type: BLOOD SPECIMENOrdering Facility: [facility] Address: [address] [address] Performed By: #### 3 2355-0 #### [facility] CLIA [id number] [address] [place] CO2 [Moles/Vol] 23 mmol/L Normal 22-30 [facility] Comment on above: Order Comment: Speci men Type: BLOOD SPECIMENOrdering Facility: [facility] Address: [address] [address] Performed By: #### 3 2355-0 #### [facility] CLIA [id number] [address] [place] Creatinine [Mass/Vol] 0.94 mg/dL Normal 0.58-0.96 [facility] Comment on above: Order Comment: Speci men Type: BLOOD SPECIMENOrdering Facility: [facility] Address: [address] [address] Performed By: #### 3 2355-0 #### [facility] CLIA [id number] [address] [place] [address] [place] ESTIMATED GLOMERULAR FILTRATION RATE 61 mL/min/1.73m??? Normal >=60 [facility] Comment on above: Order Comment: Rhina mason Type: BLOOD SPECIMENOrdering Facility: [facility] Address: [address] [address] Result Comment: Isa mated Glomerular Filtration Rate [...] GFR. Performed By: #### 3 2355-0 #### [facility] CLIA [id number] [address] [place] [address] [place] Glucose [Mass/Vol] 115 mg/dL High 74-99 [facility] Comment on above: Order Comment: Rhina mason Type: BLOOD SPECIMENOrdering Facility: [facility] Address: [address] [place] [address] Result Comment: The [place] Diabetes Association (ADA) provides guidance for cutoff [...] Standards of Medical Care in Diabetes 2016, [place] [employer]. Diabetes Care. 2016.39(Suppl 1). Performed By: #### 3 2355-0 #### [facility] CLIA [id number] 1 [place] [address] [place] Potassium [Moles/Vol] 4.4 mmol/L Normal 3.7-5.1 [facility] Comment on above: Order Comment: Rhina mason Type: BLOOD SPECIMENOrdering Facility: [facility] Address: [address] [address] Performed By: #### 3 2355-0 #### [facility] CLIA [id number] [address] Sodium [Moles/Vol] 133 mmol/L Low 136-144 [facility] Comment on above: Order Comment: Speci men Type: BLOOD SPECIMENOrdering Facility: [facility] Address: [address] [address] Performed By: #### 3 2355-0 #### [facility] CLIA [id number] [address] [place] Urea nitrogen [Mass/Vol] 22 mg/dL High 7-21 [facility] Comment on above: Order Comment: Speci men Type: BLOOD SPECIMENOrdering Facility: [facility] Address: [address] [address] Performed By: #### 3 2355-0 #### [facility] CLIA [id number] [address] STATES OF [facility] CBC panel Auto (Bld)on 06-19 Erythrocyte distribution width (RBC) [Ratio] 15.6 % High 11.5-15.0 [facility] Comment on above: Order Comment: Speci men Type: BLOOD SPECIMENOrdering Facility: [facility] Address: [address] [address] Performed By: #### 5 8410-2 ####[facility]ATORYCLIA [id number] [address] STATES OF [facility] Hematocrit (Bld) [Volume fraction] 24.0 % Low 36.0-46.0 [facility] Comment on above: Order Comment: Speci men Type: BLOOD SPECIMENOrdering Facility: [facility] Address: [address] [address] Performed By: #### 5 8410-2 ####[facility] [facility]ATORYCLIA [id number] [address] [place] Hemoglobin (Bld) [Mass/Vol] 7.6 g/dL Low 11.5-15.5 [facility] Comment on above: Order Comment: Speci men Type: BLOOD SPECIMENOrdering Facility: [facility] Address: [address] [place] [address] Performed By: #### 5 8410-2 ####[facility]ORATORYCLIA [id number] [address] MCH (RBC) [Entitic mass] 29.9 pg Normal 26.0-34.0 [facility] Comment on above: Order Comment: Speci men Type: BLOOD SPECIMENOrdering Facility: [facility] Address: [address] [address] Performed By: #### 5 8410-2 ####[facility] LABORATORYCLIA [id number] [address] MCHC (RBC) [Mass/Vol] 31.7 g/dL Normal 30.5-36.0 [facility] Comment on above: Order Comment: Speci men Type: BLOOD SPECIMENOrdering Facility: [facility] Address: [address] [address] Performed By: #### 5 8410-2 ####[facility] LABORATORYCLIA [id number] [address] MCV (RBC) [Entitic vol] 94.5 fL Normal 80.0-100.0 [facility] Comment on above: Order Comment: Speci men Type: BLOOD SPECIMENOrdering Facility: [facility] Address: [address] [place] [address] Performed By: #### 5 8410-2 ####[facility] LABORATORYCLIA [id number] [address] Nucleated RBC (Bld) [#/Vol] 0.04 10*3/uL High <0.01 [facility] Comment on above: Order Comment: Speci men Type: BLOOD SPECIMENOrdering Facility: [facility] Address: [address] [place] [address] Performed By: #### 5 8410-2 ####[facility] LABORATORYCLIA [id number] [place] [address] [place] Platelet mean volume (Bld) [Entitic vol] 10.0 fL Normal 9.0-12.7 [facility] Comment on above: Order Comment: Speci men Type: BLOOD SPECIMENOrdering Facility: [facility] Address: [address] [place] [address] Performed By: #### 5 8410-2 ####[facility] LABORATORYCLIA [id number] [place] [address] [place] Platelets (Bld) [#/Vol] 219 10*3/uL Normal 150-400 [facility] Comment on above: Order Comment: Speci men Type: BLOOD SPECIMENOrdering Facility: [facility] Address: [address] [place] [address] Performed By: #### 5 8410-2 ####[facility] LABORATORYCLIA [id number] [place] [address] [place] RBC (Bld) [#/Vol] 2.54 10*6/uL Low 3.90-5.20 [facility] Comment on above: Order Comment: Speci men Type: BLOOD SPECIMENOrdering Facility: [facility] Address: [address] [place] [address] Performed By: #### 5 8410-2 ####[facility] LABORATORYCLIA [id number] [place] [address] [place] WBC (Bld) [#/Vol] 8.55 10*3/uL Normal 3.70-11.00 [facility] Comment on above: Order Comment: Speci men Type: BLOOD SPECIMENOrdering Facility: [facility] Address: [address] [place] [address] Performed By: #### 5 8410-2 ####[facility] LABORATORYCLIA [id number] [address] [place] Hemoccult Stl Ql IAon 2021 Lower GI hemoglobin IA Ql (Stl) Positive Abnormal Negative [facility] Comment on above: Order Comment: Speci men Type: BLOOD SPECIMEN [facility] Address: [address] [place] [address] Performed By: #### T SCR #### [facility] CLIA [id number] [address] [place] Hgb Bld-mCncon 06-19-2022 Hemoglobin (Bld) [Mass/Vol] 7.6 g/dL Low 11.5-15.5 [facility] Comment on above: Order Comment: Speci men Type: BLOOD SPECIMENOrdering Facility: [facility] Address: [address] [place] [address] Performed By: #### 7 18-7 ####[facility] LABORATORYCLIA [id number] [address] [place] Magnesium SerPl-mCncon 06-19 Magnesium [Mass/Vol] 1.9 mg/dL Normal 1.7-2.3 [facility] Comment on above: Order Comment: Speci men Type: BLOOD SPECIMENOrdering Facility: [facility] Address: [address] [place] [address] Performed By: #### 3 2355-0 #### [facility] CLIA [id number] [address] [place] OPERATIVE NOon 06-19-2022 OPERATIVE NO HNO ID: [id number] Author: Frida Rodriguez MD Service: Vascular Surgery Author Type: Physician Type: Operative Report Filed: 06/19/2022 2:59 PM Note Text: [facility] - Operative Report MEL GUADARRAMA : 1940 AGE: 81. SEX: F PATIENT TYPE: I HOSP SVC: ICU LOCATION: [facility] ATTENDING PHYSICIAN: DWAYNE ZAIDI [facility] NUMBER: [id number] DATE OF SURGERY/PROCEDURE: 06/16/2022 INCISION/PROCEDURE START TIME: 5:01 PM INCISION CLOSE/PROCEDURE END TIME: 6:58 PM PREOPERATIVE DIAGNOSIS: Left lower extremity deep vein thrombosis. POSTOPERATIVE DIAGNOSIS: Left lower extremity deep vein thrombosis. SURGEON: Frida Rodriguez MD BOX TRUCK DRIVER: Resident, Emanuel Hull SURGERY/PROCEDURE: Venogram with intravascular [...] micropuncture needle and serially upsized to a 5-Georgian sheath. A venogram was then performed, which [...] time, the sheath was upsized to an 8-Georgian sheath. An intravascular ultrasound was performed. This [...] unit for further monitoring. Frida Rodriguez MD LM:[id number] /[id number] Normal [facility] Phosphate SerPl-mCncon 06-19 Phosphate [Mass/Vol] 2.4 mg/dL Low 2.7-4.8 [facility] Comment on above: Order Comment: Speci men Type: BLOOD SPECIMENOrdering Facility: [facility] Address: [address] [place] [address] [place] [address] Performed By: #### 3 2355-0 #### [facility] CLIA [id number] [address] [place] aPTT PPPon 06-19-2022 aPTT Coag (PPP) [Time] 46.9 s High 23.0-32.4 [facility] Comment on above: Order Comment: Speci men Type: BLOOD SPECIMENOrdering Facility: [facility] Address: [address] [place] [address] Performed By: #### 1 4979-9 ####[facility] LABORATORYCLIA [id number] [address] STATES OF [facility] aPTT Coag (PPP) [Time] 83.8 s High 23.0-32.4 [facility] Comment on above: Order Comment: Speci men Type: BLOOD SPECIMENOrdering Facility: [facility] Address: [address] [place] [address] Performed By: #### 3 2355-0 #### [facility] CLIA [id number] [address] OF [facility] Basic metabolic 2000 panelon 06-18-2022 Anion gap [Moles/Vol] 10 mmol/L Normal 9-18 [facility] Comment on above: Order Comment: Speci men Type: BLOOD SPECIMENOrdering Facility: [facility] Address: [address] [place] [address] Performed By: #### 2 4321-2, 43849-8, , 2776-07 ####[facility] LABORATORYCLIA [id number] [place] [address] [place] Calcium [Mass/Vol] 8.0 mg/dL Low 8.5-10.2 [facility] Comment on above: Order Comment: Speci men Type: BLOOD SPECIMENOrdering Facility: [facility] Address: [address] [place] [address] Performed By: #### 2 4321-2, 71720-0, , 2776- ####[facility] LABORATORYCLIA [id number] [address] Chloride [Moles/Vol] 102 mmol/L Normal 97-105 [facility] Comment on above: Order Comment: Speci isabella Type: BLOOD SPECIMENOrdering Facility: [facility] Address: [address] [place] [address] Performed By: #### 2 4321-2, 89894-9, , 2776-07 ####[facility] LABORATORYCLIA [id number] [address] OF [facility] CO2 [Moles/Vol] 21 mmol/L Low 22-30 [facility] Comment on above: Order Comment: Speci men Type: BLOOD SPECIMENOrdering Facility: [facility] Address: [address] [place] [address] Performed By: #### 2 4321-2, 95395-1, , 2776-07 ####[facility] SERVICESCLIA [id number] [address] OF [facility] Creatinine [Mass/Vol] 1.17 mg/dL High 0.58-0.96 [facility] Comment on above: Order Comment: Speci men Type: BLOOD SPECIMENOrdering Facility: [facility] Address: [address] [place] [address] Performed By: #### 2 4321-2, 78976-6, , 2776-07 ####[facility] LABORATORYCLIA [id number] [address] OF [facility] ESTIMATED GLOMERULAR FILTRATION RATE 47 mL/min/1.73m??? Low >=60 [facility] Comment on above: Order Comment: Speci men Type: BLOOD SPECIMENOrdering Facility: [facility] Address: [address] [place] [address] Result Comment: Isa mated Glomerular Filtration Rate [...] actual GFR. Performed By: #### 2 4321-2, 78639-6, , 2776-07 ####[facility] LABORATORYCLIA [id number] [place] [address] [place] Glucose [Mass/Vol] 112 mg/dL High 74-99 [facility] Comment on above: Order Comment: Speci men Type: BLOOD SPECIMENOrdering Facility: [facility] Address: [address] [place] [id number] Result Comment: The [place] [employer] (ADA) provides guidance for cutoff [...] Standards of Medical Care in Diabetes 2016, [place] [employer]. Diabetes Care. 2016.39(Suppl 1). Performed By: #### 2 4321-2, 92393-5, , 2776-07 ####[facility] SERVICESCLIA [id number] [place] [address] [place] Potassium [Moles/Vol] 4.4 mmol/L Normal 3.7-5.1 [facility] Comment on above: Order Comment: Samiri isabella Type: BLOOD SPECIMENOrdering Facility: [facility] Address: [address] [place] [address] Performed By: #### 2 4321-2, 05991-5, , 2776-07 ####[facility] LABORATORYIA [id number] [place] [address] [place] Sodium [Moles/Vol] 133 mmol/L Low 136-144 [facility] Comment on above: Order Comment: Speci men Type: BLOOD SPECIMENOrdering Facility: [facility] Address: [address] [place] [address] Performed By: #### 2 4321-2, 35431-5, 57622-6, 2777-1 ####[facility] LABORATORYCLIA [id number] [address] STATES [facility] Urea nitrogen [Mass/Vol] 25 mg/dL High 7-21 [facility] Comment on above: Order Comment: Speci men Type: BLOOD SPECIMENOrdering Facility: [facility] Address: [address] [place] [address] Performed By: #### 2 4321-2, 77860-7, , 2776-07 ####[facility] LABORATORYCLIA [id number] [address] OF [facility] CBC panel Auto (Bld)on 06-18 Erythrocyte distribution width (RBC) [Ratio] 15.6 % High 11.5-15.0 [facility] Comment on above: Order Comment: Speci men Type: BLOOD SPECIMENOrdering Facility: [facility] Address: [address] [place] [address] Performed By: #### 5 8410-2 ####[facility] LABORATORYCLIA [id number] [address] STATES OF [facility] Hematocrit (Bld) [Volume fraction] 26.8 % Low 36.0-46.0 [facility] Comment on above: Order Comment: Speci men Type: BLOOD SPECIMENOrdering Facility: [facility] Address: [address] [place] [address] Performed By: #### 5 8410-2 ####[facility] LABORATORYCLIA [id number] [address] STATES OF [facility] Hemoglobin (Bld) [Mass/Vol] 8.5 g/dL Low 11.5-15.5 [facility] Comment on above: Order Comment: Speci men Type: BLOOD SPECIMENOrdering Facility: [facility] Address: [address] [place] [address] Performed By: #### 5 8410-2 ####[facility] LABORATORYCLIA [id number] [address] MCH (RBC) [Entitic mass] 30.1 pg Normal 26.0-34.0 [facility] Comment on above: Order Comment: Speci men Type: BLOOD SPECIMENOrdering Facility: [facility] Address: [address] [place] [address] Performed By: #### 5 8410-2 ####[facility] LABORATORYCLIA [id number] [address] MCHC (RBC) [Mass/Vol] 31.7 g/dL Normal 30.5-36.0 [facility] Comment on above: Order Comment: Speci men Type: BLOOD SPECIMENOrdering Facility: [facility] Address: [address] [place] [address] Performed By: #### 5 8410-2 ####[facility] LABORATORYCLIA [id number] [address] MCV (RBC) [Entitic vol] 95.0 fL Normal 80.0-100.0 [facility] Comment on above: Order Comment: Speci men Type: BLOOD SPECIMENOrdering Facility: [facility] Address: [address] [place] [address] Performed By: #### 5 8410-2 ####[facility] LABORATORYCLIA [id number] [address] Nucleated RBC (Bld) [#/Vol] 0.03 10*3/uL High <0.01 [facility] Comment on above: Order Comment: Speci men Type: BLOOD SPECIMENOrdering Facility: [facility] Address: [address] [place] [address] Performed By: #### 5 8410-2 ####[facility] LABORATORYCLIA [id number] [address] Platelet mean volume (Bld) [Entitic vol] 10.2 fL Normal 9.0-12.7 [facility] Comment on above: Order Comment: Speci men Type: BLOOD SPECIMENOrdering Facility: [facility] Address: [address] [place] [address] Performed By: #### 5 8410-2 ####[facility] LABORATORYCLIA [id number] [address] Platelets (Bld) [#/Vol] 234 10*3/uL Normal 150-400 [facility] Comment on above: Order Comment: Speci men Type: BLOOD SPECIMENOrdering Facility: [facility] Address: [address] [place] [address] Performed By: #### 5 8410-2 ####[facility] LABORATORYCLIA [id number] [address] RBC (Bld) [#/Vol] 2.82 10*6/uL Low 3.90-5.20 [facility] Comment on above: Order Comment: Speci men Type: BLOOD SPECIMENOrdering Facility: [facility] Address: [address] [place] [address] Performed By: #### 5 8410-2 ####[facility] LABORATORYCLIA [id number] [address] WBC (Bld) [#/Vol] 8.77 10*3/uL Normal 3.70-11.00 [facility] Comment on above: Order Comment: Speci men Type: BLOOD SPECIMENOrdering Facility: [facility] Address: [address] [place] [address] Performed By: #### 5 8410-2 ####[facility] LABORATORYCLIA [id number] [address] CONSULT PROGon 06-18-2022 CONSULT PROG HNO ID: [id number] Author: Jessica Colmenares APRN.SCHOOL NURSE Service: Cardiovascular Medicine Author Type: Nurse Practitioner Type: Consult Progress Note Filed: 06/18/2022 2:46 PM Note Text: The ECHO reviewed, EF 59%. No significant valvular abnormalities. Chart reviewed, no further recommendations. Thank you, Jessica Colmenares APRN.SCHOOL NURSE [facility] CONSULT PROG HNO ID: [id number] Author: Cirilo Yip [facility] Service: Pharmacy Author Type: Pharmacist [...] or concerns. SIGNATURE: Cirilo Yip [facility] DATE/TIME: 06/18/2022 12:02 PM [facility] CONSULT PROG HNO ID: [id number] Author: Nimo Arzola MD Service: General Surgery [...] questions or concerns Mon-Fri 6a-5p please page [phone]. After 5pm and [...] 0659 06/18/22 0700 - 06/19/22 0659 Shift 3452-2084 2398-4452 1546-5802 24 Hour Total 0142-1655 8147-7723 6873-6806 24 Hour Total INTAKE IV 350 15 365 Volume (mL) 15 15 Volume (mL) (lactated ringers iv infusion) 350 350 Shift Total 350 15 365 OUTPUT Urine 4709 107 6091 Void (ml) 1450 1450 Output ( External Collection Device 06/16/22 2331) 400 400 # of BMs Stool Incontinence 1 x 1 x Number of BMs 1 x 1 x Shift Total 5327 774 4802 Weight (kg) 71.2 71.2 71.2 71.2 71.2 [...] 2 Cholesterol [Mass/Vol] 139 mg/dL Normal <200 [facility] Comment on above: Order Comment: Speci men Type: BLOOD SPECIMENOrdering Facility: [facility] Address: [address] [place] [address] Result Comment: <200 mg/dL, Desirable 200-239 mg/dL, Borderline high >239 mg/dL, High Performed By: #### 2 4321-2, 32557-1, , 2776-07 ####[facility]ORATORYCLIA [id number] [place], [place] [id number] [place] [address] [place] Cholesterol in HDL [Mass/Vol] 56 mg/dL Normal >39 [facility] Comment on above: Order Comment: Speci men Type: BLOOD SPECIMENOrdering Facility: [facility] Address: [address] [place] [address] Result Comment: 40-5 9 mg/dL, Acceptable >59 mg/dL, High: Negative risk factor for coronary heart disease <40 mg/dL, Low: Positive risk factor for coronary heart disease Performed By: #### 2 4321-2, 68726-1, , 2776-07 ####[facility] LABORATORYCLIA [id number] [address] STATES [place] Cholesterol in LDL [Mass/Vol] 64 mg/dL Normal <100 [facility] Comment on above: Order Comment: Speci men Type: BLOOD SPECIMENOrdering Facility: [facility] Address: [address] [place] [address] Result Comment: <100 mg/dL, Optimal 100-129 mg/dL, Near optimal/above optimal 130-159 mg/dL, Borderline high 160-189 mg/dL, High >189 mg/dL, Very high Secondary prevention optimal LDL Cholesterol levels are recommended to be < 70 mg/dL Performed By: #### 2 4321-2, 22943-8, , 2776-07 ####[facility]ORATORYCLIA [id number] [address] OF [place] Cholesterol in LDL/Cholesterol in HDL [Mass ratio] 1.14 {ratio} Normal <2.54 [facility] Comment on above: Order Comment: Speci men Type: BLOOD SPECIMENOrdering Facility: [facility] Address: [address] [place] [address] Result Comment: Brii nath: 1. National Cholesterol Education Program ATP III Guideline At-A-Glance Quick Desk Reference: National Heart, Lung, and Blood [place]. National Institutes of Health. 2001: NIH Publication No. 01-3305. 2. An International Atherosclerosis Society position paper: global recommendations for the management of dyslipidemia: executive summary, Atherosclerosis. 2014: 232(2):410-413. Performed By: #### 2 4321-2, 11348-5, , 2776-07 ####[facility] LABORATORYCLIA [id number] [address] STATES [place] Cholesterol in VLDL [Mass/Vol] 19 mg/dL Normal <30 [facility] Comment on above: Order Comment: Samiri men Type: BLOOD SPECIMENOrdering Facility: [facility] Address: [address] [place] [address] Performed By: #### 2 4321-2, 79364-9, , 2776-07 ####[facility] SERVICESCLIA [id number] [address] STATES [place] Cholesterol non HDL [Mass/Vol] 83 mg/dL Normal <130 [facility] Comment on above: Order Comment: Rhina mason Type: BLOOD SPECIMENOrdering Facility: [facility] Address: [address] [place] [address] Result Comment: <130 mg/dL, Optimal 130-159 mg/dL, Near optimal/above optimal 160-189 mg/dL, Borderline high 190-219 mg/dL, High >219 mg/dL, Very high Secondary prevention optimal non HDL Cholesterol levels are recommended to be <100 mg/dL Performed By: #### 2 4321-2, 37759-4, , 2776-07 ####[facility] LABORATORYCLIA [id number] [address] OF [place] Cholesterol.total/Pastora sterol in HDL [Mass ratio] 2.48 {ratio} Normal <5.10 [facility] Comment on above: Order Comment: Rhina men Type: BLOOD SPECIMENOrdering Facility: [facility] Address: [address] [facility] [address] [address] Performed By: #### 2 4321-2, 31486-2, , 2776-07 ####[facility]ORATORYCLIA [id number] [address] OF [place] FASTING TIME 8 hrs Normal [facility] Comment on above: Order Comment: Speci men Type: BLOOD SPECIMENOrdering Facility: [facility] Address: [address] [address] Performed By: #### 2 4321-2, 63936-5, , 2776-07 ####[facility] LABORATORYCLIA [id number] [address] STATES [place] Triglyceride [Mass/Vol] 93 mg/dL Normal <150 [facility] Comment on above: Order Comment: Speci men Type: BLOOD SPECIMENOrdering Facility: [facility] Address: [address] [place] [address] Result Comment: <150 mg/dL, Normal 150-199 mg/dL, Borderline high 200-499 mg/dL, High >499 mg/dL, Very high Performed By: #### 2 4321-2, 61178-9, , 2776-07 ####[facility]ORATORYCLIA [id number] [place] [address] [place] Magnesium SerPl-mCncon 06-18 Magnesium [Mass/Vol] 2.1 mg/dL Normal 1.7-2.3 [facility] Comment on above: Order Comment: Speci men Type: BLOOD SPECIMENOrdering Facility: [facility] Address: [address] [address] Performed By: #### 2 4321-2, 23014-6, , 2776-07 ####[facility] LABORATORYCLIA [id number] [place] [address] [place] Phosphate SerPl-mCncon 06-18 Phosphate [Mass/Vol] 3.3 mg/dL Normal 2.7-4.8 [facility] Comment on above: Order Comment: Speci men Type: BLOOD SPECIMENOrdering Facility: [facility] Address: [address] [place] [address] Performed By: #### 2 4321-2, 97156-5, 02151-4, 2777-1 ####[facility] LABORATORYCLIA [id number] [address] aPTT PPPon 06-18-2022 aPTT Coag (PPP) [Time] 37.2 s High 23.0-32.4 [facility] Comment on above: Order Comment: Speci men Type: BLOOD SPECIMENOrdering Facility: [facility] Address: [address] [place] [address] Performed By: #### 9 4500-6 #### [facility] CLIA [id number] [address] [place] [address] aPTT Coag (PPP) [Time] 58.8 s High 23.0-32.4 [facility] Comment on above: Order Comment: Speci men Type: BLOOD SPECIMENOrdering Facility: [facility] Address: [address] [place] [address] Performed By: #### 1 4979-9 ####[facility] LABORATORYCLIA [id number] [address] aPTT Coag (PPP) [Time] 127.7 s High 23.0-32.4 [facility] Comment on above: Order Comment: Speci men Type: BLOOD SPECIMEN [facility] Address: [address] [place] [address] Performed By: #### T SCR #### [facility] CLIA [id number] [address] [place] [address] ALLIED HEALTHon 06-17-2022 ALLIED HEALTH HNO ID: [id number] Author: RT [place](R) Service: Radiology Author Type: [...] [place](R) June 17, 2022 9:30 AM [facility] ALLIED HEALTH HNO ID: [id number] Author: Jeremías Bragg II Service: Infection Prevention [...] TIME: 8:27 AM PAGER/CONTACT #: Infection Prevention, [id number] Infection Prevention after hours/weekend pager: [phone] [facility] ANES POSTPROC EVALon 022 ANES POSTPROC EVAL HNO ID: [id number] Author: Larry Moss MD Service: Anesthesiology Author Type: Anesthesiologist Type: Anesthesia Postprocedure Evaluation Filed: 06/17/2022 6:51 AM Note Text: POST ANESTHESIA EVALUATION NOTE : 1940 Procedure Summary Date: 06/16/22 Room / Location: GA OR / [place] OR Anesthesia Start: 1609 Anesthesia Stop: 1934 [...] June 17, 2022 TIME: 6:50 AM CSN: [id number] Normal [facility] Basic metabolic 2000 panelon 06-17-2022 Anion gap [Moles/Vol] 9 mmol/L Normal 9-18 [facility] Comment on above: Order Comment: Speci men Type: BLOOD SPECIMENOrdering Facility: [facility] Address: [address] [place] [id number] Performed By: #### 2 4321-2, 92208-2, 2777-1 ####[facility] LABORATORYCLIA [id number] [address] STATES [place] Calcium [Mass/Vol] 7.9 mg/dL Low 8.5-10.2 [facility] Comment on above: Order Comment: Speci men Type: BLOOD SPECIMENOrdering Facility: [facility] Address: [address] [place] [address] Performed By: #### 2 4321-2, , 2776-07 ####[facility] LABORATORYCLIA [id number] [place] [address] [place] Chloride [Moles/Vol] 107 mmol/L High 97-105 [facility] Comment on above: Order Comment: Speci men Type: BLOOD SPECIMENOrdering Facility: [facility] Address: [address] [place] [address] Performed By: #### 2 4321-2, , 2776-07 ####[facility] LABORATORYCLIA [id number] [place] [address] [place] CO2 [Moles/Vol] 21 mmol/L Low 22-30 [facility] Comment on above: Order Comment: Speci men Type: BLOOD SPECIMENOrdering Facility: [facility] Address: [address] [place] [address] Performed By: #### 2 1-2, , 2776-07 ####[facility] LABORATORYCLIA [id number] [place] [address] [place] Creatinine [Mass/Vol] 0.99 mg/dL High 0.58-0.96 [facility] Comment on above: Order Comment: Speci men Type: BLOOD SPECIMENOrdering Facility: [facility] Address: [address] [place] [address] Performed By: #### 2 432-2, , 2776-07 ####[facility] LABORATORYCLIA [id number] [address] STATES [place] ESTIMATED GLOMERULAR FILTRATION RATE 57 mL/min/1.73m??? Low >=60 [facility] Comment on above: Order Comment: Speci men Type: BLOOD SPECIMENOrdering Facility: [facility] Address: [address] [id number] Result Comment: Isa mated Glomerular Filtration Rate [...] Performed By: #### 2 4321-2, , 2776-07 ####[facility] LABORATORYCLIA [id number] [place] [address] [place] Glucose [Mass/Vol] 84 mg/dL Normal 74-99 [facility] Comment on above: Order Comment: Rhina mason Type: BLOOD SPECIMENOrdering Facility: [facility] Address: [address] [place] [address] Result Comment: The [place] Diabetes Association (ADA) provides guidance for cutoff [...] Standards of Medical Care in Diabetes 2016, [place] [employer] Association. Diabetes Care. 2016.39(Suppl 1). Performed By: #### 2 4321-2, , 2776-07 ####[facility] LABORATORYCLIA [id number] [place] [address] [place] Potassium [Moles/Vol] 4.3 mmol/L Normal 3.7-5.1 [facility] Comment on above: Order Comment: Rhina [facility] Type: BLOOD SPECIMENOrdering Facility: [facility] Address: [address] Performed By: #### 2 4321-2, , 2776-07 ####[facility] LABORATORYCLIA [id number] [place] [id number] [place] [facility] Sodium [Moles/Vol] 137 mmol/L Normal 136-144 [facility] Comment on above: Order Comment: Speci men Type: BLOOD SPECIMENOrdering Facility: [facility] Address: [address] [place] [address] Performed By: #### 2 4321-2, , 2776-07 ####[facility] LABORATORYCLIA [id number] [address] STATES [facility] Urea nitrogen [Mass/Vol] 27 mg/dL High 7-21 [facility] Comment on above: Order Comment: Speci men Type: BLOOD SPECIMENOrdering Facility: [facility] Address: [address] [place] [address] Performed By: #### 2 432-2, , 2776-07 ####[facility] LABORATORYCLIA [id number] [address] STATES OF [facility] CBC panel Auto (Bld)on 06-17 Erythrocyte distribution width (RBC) [Ratio] 15.5 % High 11.5-15.0 [facility] Comment on above: Order Comment: Speci men Type: BLOOD SPECIMENOrdering Facility: [facility] Address: [address] [place] [address] Performed By: #### 5 8410-2 ####[facility] LABORATORYCLIA [id number] [address] Hematocrit (Bld) [Volume fraction] 26.6 % Low 36.0-46.0 [facility] Comment on above: Order Comment: Speci men Type: BLOOD SPECIMENOrdering Facility: [facility] Address: [address] [place] [address] Performed By: #### 5 8410-2 ####[facility] LABORATORYCLIA [id number] [place] [address] [place] Hemoglobin (Bld) [Mass/Vol] 8.5 g/dL Low 11.5-15.5 [facility] Comment on above: Order Comment: Speci men Type: BLOOD SPECIMENOrdering Facility: [facility] Address: [address] [place] [address] Performed By: #### 5 8410-2 ####[facility] LABORATORYCLIA [id number] [address] MCH (RBC) [Entitic mass] 30.0 pg Normal 26.0-34.0 [facility] Comment on above: Order Comment: Speci men Type: BLOOD SPECIMENOrdering Facility: [facility] Address: [address] [place] [address] Performed By: #### 5 8410-2 ####[facility] LABORATORYCLIA [id number] [address] MCHC (RBC) [Mass/Vol] 32.0 g/dL Normal 30.5-36.0 [facility] Comment on above: Order Comment: Speci men Type: BLOOD SPECIMENOrdering Facility: [facility] Address: [address] [place] [address] Performed By: #### 5 8410-2 ####[facility] LABORATORYCLIA [id number] [address] MCV (RBC) [Entitic vol] 94.0 fL Normal 80.0-100.0 [facility] Comment on above: Order Comment: Speci men Type: BLOOD SPECIMENOrdering Facility: [facility] Address: [address] [place] [address] Performed By: #### 5 8410-2 ####[facility] LABORATORYCLIA [id number] [address] Nucleated RBC (Bld) [#/Vol] 0.02 10*3/uL High <0.01 [facility] Comment on above: Order Comment: Speci men Type: BLOOD SPECIMENOrdering Facility: [facility] Address: [address] [place] [address] Performed By: #### 5 8410-2 ####[facility] LABORATORYCLIA [id number] [address] STATES [facility] Platelet mean volume (Bld) [Entitic vol] 9.5 fL Normal 9.0-12.7 [facility] Comment on above: Order Comment: Speci men Type: BLOOD SPECIMENOrdering Facility: [facility] Address: [address] [place] [address] Performed By: #### 5 8410-2 ####[facility] LABORATORYCLIA [id number] [address] [place] Platelets (Bld) [#/Vol] 223 10*3/uL Normal 150-400 [facility] Comment on above: Order Comment: Speci men Type: BLOOD SPECIMENOrdering Facility: [facility] Address: [address] [place] [address] Performed By: #### 5 8410-2 ####[facility] LABORATORYCLIA [id number] [address] [place] RBC (Bld) [#/Vol] 2.83 10*6/uL Low 3.90-5.20 [facility] Comment on above: Order Comment: Speci men Type: BLOOD SPECIMENOrdering Facility: [facility] Address: [address] [place] [address] Performed By: #### 5 8410-2 ####[facility] LABORATORYCLIA [id number] [place] [address] [place] WBC (Bld) [#/Vol] 8.61 10*3/uL Normal 3.70-11.00 [facility] Comment on above: Order Comment: Speci men Type: BLOOD SPECIMENOrdering Facility: [facility] Address: [address] [place] [address] Performed By: #### 5 8410-2 ####[facility] LABORATORYCLIA [id number] [address] OF [facility] CONSULTon 06-17-2022 CONSULT HNO ID: [id number] Author: García Monique MD Service: Cardiovascular Medicine Author Type: Physician Type: Consults Filed: 06/17/2022 11:14 AM Note Text: CARDIOVASCULAR INTENSIVE CARE UNIT ([facility]) History AND Physical Note PATIENT NAME: Mel Castillo DATE: June 17, 2022 ADMITTED FOR: Subjective HPI Ms. Mel Castillo is a 81 year old female with PMH: - Paroxysmal Afib - GERD - HTN - Hypothyroidism Patient presented to [facility] on 06/16/2022 for evaluation of left [...] her covid symptoms. States doesnot see a science editor and has no other past cardiac history other than paroxysmal Afib and HTN. CHRISTOPHRE 28>22. EKG : Afib hr 120, no [...] Procedure Component Value Units Date/Time Expedited COVID19 [[id number]] (Abnormal) Collected: 06/16/22826 Order Status: Completed Specimen: [...] CONSULT PROGon 06-17-2022 CONSULT PROG HNO ID: [id number] Author: Dominique Lauren RPh Service: Pharmacy Author [...] Dominique Lauren RPh DATE/TIME: 06/17/2022 3:47 PM Normal [facility] CONSULT PROG HNO ID: [id number] Author: Emanuel Hull MD Service: General Surgery [...] questions or concerns Mon-Fri 6a-5p please page [phone]. After 5pm and on Weekends and Holidays, please page [phone] if in ICU or [phone] if on RNF. Subjective SUBJECTIVE: Was able [...] kg/m? O2 Therapy: Nasal Cannula IANDO: Date 06/16/22699 - 06/17/22 0659 06/17/22699 - 06/18/22 0659 Shift 4578-1783 4012-8764 8309-9895 24 Hour Total 1559-0804 5794-4276 3258-8089 24 Hour Total INTAKE IV 600 1000 [...] Estimated Blood loss 100 100 Shift Total 963 159 8881 Weight (kg) 72.6 71.2 71.2 71.2 71.2 [...] 06/16/22 0818 06/16/22 0458 06/16/22 0341 06/16/22 03406/16/22 0304 NA 137 -- -- -- -- [...] Center Date of service: 06[facility]17/2022 10:27[facility] Ordering physician: GARCÍA MONIQUE Indication: Nonsustained atrial fibrillation Technologist: Glendy Pena [facility] Interpreting physician: Nnado Costa MD PATIENT: Name: MEL CASTILLO : [...] * * Final * * * CC [facility] : [id number] Normal [facility] Magnesium SerPl-ncon 06-17 Magnesium [Mass/Vol] 2.1 mg/dL Normal 1.7-2.3 [facility] Comment on above: Order Comment: Speci men Type: BLOOD SPECIMENOrdering Facility: [facility] Address: [address] [place] [address] Performed By: #### 2 4321-2, 56266-3, 2777-1 ####[facility] LABORATORYCLIA [id number] [address] OF [facility] Phosphate SerPl-ncon 06-17 Phosphate [Mass/Vol] 3.8 mg/dL Normal 2.7-4.8 [facility] Comment on above: Order Comment: Speci men Type: BLOOD SPECIMENOrdering Facility: [facility] Address: [address] [place] [address] Performed By: #### 2 4321-2, 06425-0, 2777-1 ####[facility] LABORATORYCLIA [id number] [place] [address] [place] XR CHEST 1V FRONTALon [...] Comparison: None. RESULT: Lines, tubes, and devices: data processing equipment repairer leads. Hardware noted in the proximal right [...] in both lungs suspicious for multifocal pneumonia. Veterans Employment Representative: DEVEN Transcribe Date/Time: Jun 17 2022 10:41A Dictated by : DI MINER MD This examination was interpreted and the report reviewed and electronically signed by: DI MINER MD on Jun 17 2022 10:43AM EST [id number] Normal [facility] aPTT PPPon 06-17-2022 aPTT Coag (PPP) [Time] 48.4 s High 23.0-32.4 [facility] Comment on above: Order Comment: Speci men Type: BLOOD SPECIMENOrdering Facility: [facility] Address: [address] [place] [address] Performed By: #### 9 4500-6 #### [facility] CLIA [id number] [address] [place] [address] aPTT Coag (PPP) [Time] 29.4 s Normal 23.0-32.4 [facility] Comment on above: Order Comment: Speci men Type: BLOOD SPECIMENOrdering Facility: [facility] Address: [address] [place] [address] Performed By: #### 3 2355-0 #### [facility] CLIA [id number] [address] [place] [address] aPTT Coag (PPP) [Time] 125.1 s High 23.0-32.4 [facility] Comment on above: Order Comment: Speci men Type: BLOOD SPECIMEN [facility] Address: [address] [place] [address] Performed By: #### T SCR #### [facility] CLIA [id number] [address] aPTT Coag (PPP) [Time] s High 23.0-32.4 [facility] Comment on above: Order Comment: Speci men Type: BLOOD SPECIMENOrdering Facility: [facility] Address: [address] [place], [place] [address], [place] [address] Performed By: #### 3 2355-0 #### [facility] CLIA [id number] [address] aPTT Coag (PPP) [Time] 28.5 s Normal 23.0-32.4 [facility] Comment on above: Order Comment: Speci men Type: BLOOD SPECIMENOrdering Facility: [facility] Address: [place] [id number] Performed By: #### 1 4979-9 ####[facility] LABORATORYCLIA [id number] [address] OF [facility] ANES PRE-OPon 06-16-2022 ANES PRE-OP HNO ID: [id number] Author: Olu Winn MD Service: Anesthesiology Author Type: Physician Type: Anesthesia Preprocedure Evaluation Filed: 06/16/2022 5:41 PM Note Text: ANESTHESIOLOGY DAY OF SURGERY NOTE : 1940 Procedure Information Date/Time: 06/16/220 Procedure: TRANSCATHETER THERAPY VENOUS INFUSION FOR THROMBOLYSIS [...] and consent discussed: yes. Patient / Responsible [employer] agrees to proceed: yes Patient / [...] June 16, 2022 TIME: 3:44 PM CSN: [id number] [facility] BRIEF OP NOTon 06-16-2022 BRIEF OP NOT HNO ID: [id number] Author: Emanuel Hull MD Service: General Surgery [...] BRIEF OPERATIVE / PROCEDURE NOTE LOG ID: [id number] Surgery/Procedure Date: 06/16/2022 Incision/Procedure Start Time: 5:01 PM Incision Close/Procedure End Time: 6:58 PM Surgeon(s)/Proceduralis t(s) and Research Engineer Marine Equipment(s): Surgeon(s) and Role: * Frida Rodriguez MD [...] and on weekends, please page surgery on-call 217 (RNF) or 217 (ICU) SIGNATURE: Emanuel Hull MD PATIENT NAME: Mel Castillo DATE: June 16, 2022 TIME: 7:19 PM PAGER/CONTACT #: [phone] Normal [facility] CBC W Auto Differential pane l (Bld)on 06-16-2022 Anisocytosis Ql (Bld) Present Normal [facility] Comment on above: Order Comment: Speci men Type: BLOOD SPECIMENOrdering Facility: [facility] Address: [address] [place] [address] Performed By: #### 5 7021-8 ####[facility] LABORATORYCLIA [id number] [address] OF [facility] Basophils (Bld) [#/Vol] 0.00 10*3/uL Normal <0.11 [facility] Comment on above: Order Comment: Speci men Type: BLOOD SPECIMENOrdering Facility: [facility] Address: [address] [place] [address] Performed By: #### 5 7021-8 ####[facility] LABORATORYCLIA [id number] [address] Basophils/100 WBC (Bld) 0.0 % Normal [facility] Comment on above: Order Comment: Speci men Type: BLOOD SPECIMENOrdering Facility: [facility] Address: [address] [place] [address] Performed By: #### 5 7021-8 ####[facility] LABORATORYCLIA [id number] [address] [place] Differential cell count method Nom (Bld) Manual Normal [facility] Comment on above: Order Comment: Speci men Type: BLOOD SPECIMENOrdering Facility: [facility] Address: [address] [place] [address] Performed By: #### 5 7021-8 ####[facility]ORATORYCLIA [id number] [address] Eosinophils (Bld) [#/Vol] 0.00 10*3/uL Normal <0.46 [facility] Comment on above: Order Comment: Speci men Type: BLOOD SPECIMENOrdering Facility: [facility] Address: [address] [place] [address] Performed By: #### 5 7021-8 ####[facility] LABORATORYCLIA [id number] [address] Eosinophils/100 WBC (Bld) 0.0 % Normal [facility] Comment on above: Order Comment: Speci men Type: BLOOD SPECIMENOrdering Facility: [facility] Address: [address] [place] [address] Performed By: #### 5 7021-8 ####[facility] LABORATORYCLIA [id number] [address] Erythrocyte distribution width (RBC) [Ratio] 15.6 % High 11.5-15.0 [facility] Comment on above: Order Comment: Speci men Type: BLOOD SPECIMENOrdering Facility: [facility] Address: [address] [place] [address] Performed By: #### 5 7021-8 ####[facility] LABORATORYCLIA [id number] [address] Hematocrit (Bld) [Volume fraction] 35.3 % Low 36.0-46.0 [facility] Comment on above: Order Comment: Speci men Type: BLOOD SPECIMENOrdering Facility: [facility] Address: [address] [place] [address] Performed By: #### 5 7021-8 ####[facility] LABORATORYCLIA [id number] [address] Hemoglobin (Bld) [Mass/Vol] 11.4 g/dL Low 11.5-15.5 [facility] Comment on above: Order Comment: Speci men Type: BLOOD SPECIMENOrdering Facility: [facility] Address: [address] [place] [address] Performed By: #### 5 7021-8 ####[facility] LABORATORYCLIA [id number] [address] Lymphocytes (Bld) [#/Vol] 1.27 10*3/uL Normal 1.00-4.00 [facility] Comment on above: Order Comment: Speci men Type: BLOOD SPECIMENOrdering Facility: [facility] Address: [address] [place] [address] Performed By: #### 5 7021-8 ####[facility] LABORATORYCLIA [id number] [address] Lymphocytes/100 WBC (Bld) 8.0 % Normal [facility] Comment on above: Order Comment: Speci men Type: BLOOD SPECIMENOrdering Facility: [facility] Address: [address] [place] [address] Performed By: #### 5 7021-8 ####[facility] LABORATORYCLIA [id number] [address] OF [facility] MCH (RBC) [Entitic mass] 30.2 pg Normal 26.0-34.0 [facility] Comment on above: Order Comment: Speci men Type: BLOOD SPECIMENOrdering Facility: [facility] Address: [address] [place] [address] Performed By: #### 5 7021-8 ####[facility] LABORATORYCLIA [id number] [address] OF [facility] MCHC (RBC) [Mass/Vol] 32.3 g/dL Normal 30.5-36.0 [facility] Comment on above: Order Comment: Speci men Type: BLOOD SPECIMENOrdering Facility: [facility] Address: [address] [place] [address] Performed By: #### 5 7021-8 ####[facility] LABORATORYCLIA [id number] [address] [place] MCV (RBC) [Entitic vol] 93.6 fL Normal 80.0-100.0 [facility] Comment on above: Order Comment: Speci men Type: BLOOD SPECIMENOrdering Facility: [facility] Address: [address] [place] [address] Performed By: #### 5 7021-8 ####[facility]ORATORYCLIA [id number] [address] [place] Monocytes (Bld) [#/Vol] 1.74 10*3/uL High <0.87 [facility] Comment on above: Order Comment: Speci men Type: BLOOD SPECIMENOrdering Facility: [facility] Address: [address] [place] [address] Performed By: #### 5 7021-8 ####[facility]ORATORYCLIA [id number] [address] Monocytes/100 WBC (Bld) 11.0 % Normal A [facility] Comment on above: Order Comment: Speci men Type: BLOOD SPECIMENOrdering Facility: [facility] Address: [address] [place] [address] Performed By: #### 5 7021-8 ####[facility] LABORATORYCLIA [id number] [address] MYELO% 4.0 % Normal [facility] Comment on above: Order Comment: Speci men Type: BLOOD SPECIMENOrdering Facility: [facility] Address: [address] [place] [address] Performed By: #### 5 7021-8 ####[facility]ORATORYCLIA [id number] [address] [place] Neutrophils (Bld) [#/Vol] 12.02 10*3/uL High 1.45-7.50 [facility] Comment on above: Order Comment: Speci men Type: BLOOD SPECIMENOrdering Facility: [facility] Address: [address] [place] [address] Performed By: #### 5 7021-8 ####[facility]ORATORYCLIA [id number] [address] [place] Neutrophils/100 WBC (Bld) 76.0 % Normal [facility] Comment on above: Order Comment: Speci men Type: BLOOD SPECIMENOrdering Facility: [facility] Address: [address] [address] Performed By: #### 5 7021-8 ####[facility] LABORATORYCLIA [id number] [place] [address] [place] Nucleated RBC (Bld) [#/Vol] 10*3/uL Normal <0.01 [facility] Comment on above: Order Comment: Speci men Type: BLOOD SPECIMENOrdering Facility: [facility] Address: [address] [address] Performed By: #### 5 7021-8 ####[facility] LABORATORYCLIA [id number] [place] [address] [place] Nucleated RBC/100 WBC (Bld) [Ratio] 0.0 /100 WBC Normal [facility] Comment on above: Order Comment: Speci men Type: BLOOD SPECIMENOrdering Facility: [facility] Address: [address] [address] Performed By: #### 5 7021-8 ####[facility] LABORATORYCLIA [id number] [place] [address] [place] Platelet mean volume (Bld) [Entitic vol] 9.7 fL Normal 9.0-12.7 [facility] Comment on above: Order Comment: Speci men Type: BLOOD SPECIMENOrdering Facility: [facility] Address: [address] [address] Performed By: #### 5 7021-8 ####[facility] LABORATORYCLIA [id number] [place] [address] [place] Platelets (Bld) [#/Vol] 373 10*3/uL Normal 150-400 [facility] Comment on above: Order Comment: Speci men Type: BLOOD SPECIMENOrdering Facility: [facility] Address: [address] [address] Performed By: #### 5 7021-8 ####[facility] LABORATORYCLIA [id number] [address] Platelets Estimate (Bld) [#/Vol] Adequate Normal [facility] Comment on above: Order Comment: Speci men Type: BLOOD SPECIMENOrdering Facility: [facility] Address: [address] [address] Performed By: #### 5 7021-8 ####[facility] LABORATORYCLIA [id number] [address] [place] PROMYL% 1.0 % Normal [facility] Comment on above: Order Comment: Speci men Type: BLOOD SPECIMENOrdering Facility: [facility] Address: [address] [place] [address] Performed By: #### 5 7021-8 ####[facility] LABORATORYCLIA [id number] [address] [place] RBC (Bld) [#/Vol] 3.77 10*6/uL Low 3.90-5.20 [facility] Comment on above: Order Comment: Speci men Type: BLOOD SPECIMENOrdering Facility: [facility] Address: [address] [address] Performed By: #### 5 7021-8 ####[facility] LABORATORYCLIA [id number] [address] [place] RED CELL MORPH Normal Normal [facility] Comment on above: Order Comment: Speci men Type: BLOOD SPECIMENOrdering Facility: [facility] Address: [address] [address] Performed By: #### 5 7021-8 ####[facility] LABORATORYCLIA [id number] [address] SPHEROCYTES Few Normal [facility] Comment on above: Order Comment: Speci men Type: BLOOD SPECIMENOrdering Facility: [facility] Address: [address] [address] Performed By: #### 5 7021-8 ####[facility]ATORYCLIA [id number] [address] [place] WBC (Bld) [#/Vol] 15.82 10*3/uL High 3.70-11.00 [facility] Comment on above: Order Comment: Speci men Type: BLOOD SPECIMENOrdering Facility: [facility] Address: [address] [place] [address] Result Comment: Resu lts checked and verified. Performed By: #### 5 7021-8 ####[facility] LABORATORYCLIA [id number] [address] OF [facility] CBC panel Auto (Bld)on 06-16 Erythrocyte distribution width (RBC) [Ratio] 15.5 % High 11.5-15.0 [facility] Comment on above: Order Comment: Speci men Type: BLOOD SPECIMENOrdering Facility: [facility] Address: [address] [place] [address] Performed By: #### 5 8410-2 ####[facility] LABORATORYCLIA [id number] [address] [place] Hematocrit (Bld) [Volume fraction] 30.1 % Low 36.0-46.0 [facility] Comment on above: Order Comment: Speci men Type: BLOOD SPECIMENOrdering Facility: [facility] Address: [address] [place] [address] Performed By: #### 5 8410-2 ####[facility] LABORATORYCLIA [id number] [address] [place] Hemoglobin (Bld) [Mass/Vol] 9.8 g/dL Low 11.5-15.5 [facility] Comment on above: Order Comment: Speci men Type: BLOOD SPECIMENOrdering Facility: [facility] Address: [address] [place] [address] Performed By: #### 5 8410-2 ####[facility] LABORATORYCLIA [id number] [address] [place] MCH (RBC) [Entitic mass] 30.8 pg Normal 26.0-34.0 [facility] Comment on above: Order Comment: Speci men Type: BLOOD SPECIMENOrdering Facility: [facility] Address: [address] [place] [address] Performed By: #### 5 8410-2 ####[facility] LABORATORYCLIA [id number] [address] MCHC (RBC) [Mass/Vol] 32.6 g/dL Normal 30.5-36.0 [facility] Comment on above: Order Comment: Speci men Type: BLOOD SPECIMENOrdering Facility: [facility] Address: [address] [place] [address] Performed By: #### 5 8410-2 ####[facility] LABORATORYCLIA [id number] [address] MCV (RBC) [Entitic vol] 94.7 fL Normal 80.0-100.0 [facility] Comment on above: Order Comment: Speci men Type: BLOOD SPECIMENOrdering Facility: [facility] Address: [address] [place] [address] Performed By: #### 5 8410-2 ####[facility] LABORATORYCLIA [id number] [address] Nucleated RBC (Bld) [#/Vol] 0.08 10*3/uL High <0.01 [facility] Comment on above: Order Comment: Speci men Type: BLOOD SPECIMENOrdering Facility: [facility] Address: [address] [place] [address] Performed By: #### 5 8410-2 ####[facility] LABORATORYCLIA [id number] [address] STATES [facility] Platelet mean volume (Bld) [Entitic vol] 9.6 fL Normal 9.0-12.7 [facility] Comment on above: Order Comment: Speci men Type: BLOOD SPECIMENOrdering Facility: [facility] Address: [address] [place] [address] Performed By: #### 5 8410-2 ####[facility] LABORATORYCLIA [id number] [address] OF [facility] Platelets (Bld) [#/Vol] 277 10*3/uL Normal 150-400 [facility] Comment on above: Order Comment: Rhina mason Type: BLOOD SPECIMENOrdering Facility: [facility] Address: [address] [place] [address] Performed By: #### 5 8410-2 ####[facility] LABORATORYCLIA [id number] [place] [address] [place] RBC (Bld) [#/Vol] 3.18 10*6/uL Low 3.90-5.20 [facility] Comment on above: Order Comment: Rhina mason Type: BLOOD SPECIMENOrdering Facility: [facility] Address: [address] [place] [address] Performed By: #### 5 8410-2 ####[facility] LABORATORYCLIA [id number] [address] WBC (Bld) [#/Vol] 10.43 10*3/uL Normal 3.70-11.00 [facility] Comment on above: Order Comment: Rhina mason Type: BLOOD SPECIMENOrdering Facility: [facility] Address: [address] [place] [address] Performed By: #### 5 8410-2 ####[facility] LABORATORYCLIA [id number] [address] OF [facility] CONSULTon 06-16-2022 CONSULT HNO ID: [id number] Author: Iman Saldana DO Service: General Surgery [...] DATE OF EXAM: Jun 16 2022 7:33AM [facility] 0122 - CTA ABD/PEL/LOWER EXT [...] lobe consolidation may represent pneumonia or atelectasis. Veterans Employment Representative: [facility] Transcribe Date/Time: Jun 16 2022 7:54A Dictated [...] Comment: Speci men Type: BLOOD SPECIMENOrdering Facility: [facility] Address: [address] [place] [address] Performed By: #### 3 3959-8, 57689-7, 66114-3, 26565-3 ####[facility] LABORATORYCLIA [id number] [place] [address] [place] ALP [Catalytic activity/Vol] 111 U/L Normal 34-123 [facility] Comment on above: Order Comment: Speci men Type: BLOOD SPECIMENOrdering Facility: [facility] Address: [address] [address] Performed By: #### 3 6999-8, 65515-5, 63766-1, 57852-1 ####[facility] LABORATORYCLIA [id number] [address] STATES OF [facility] ALT With P-5'-P [Catalytic activity/Vol] 20 U/L Normal 7-38 [facility] Comment on above: Order Comment: Speci men Type: BLOOD SPECIMENOrdering Facility: [facility] Address: [address] [place] [address] Performed By: #### 3 3959-8, 94608-3, 24093-6, 55609-5 ####[facility] LABORATORYCLIA [id number] [address] OF [facility] Anion gap [Moles/Vol] 17 mmol/L Normal 9-18 [facility] Comment on above: Order Comment: Speci men Type: BLOOD SPECIMENOrdering Facility: [facility] Address: [address] [place] [address] Performed By: #### 3 3959-8, 88184-4, 46422-7, 73452-4 ####[facility] LABORATORYCLIA [id number] [address] AST With P-5'-P [Catalytic activity/Vol] 13 U/L Normal 13-35 [facility] Comment on above: Order Comment: Speci men Type: BLOOD SPECIMENOrdering Facility: [facility] Address: [address] [place] [address] Performed By: #### 3 3959-8, 14320-5, 50543-4, 75617-4 ####[facility] LABORATORYCLIA [id number] [address] [id number] [place] [facility] Bilirubin [Mass/Vol] 0.3 mg/dL Normal 0.2-1.3 [facility] Comment on above: Order Comment: Speci men Type: BLOOD SPECIMENOrdering Facility: [facility] Address: [address] [place] [address] Performed By: #### 3 3959-8, 66151-3, 61323-8, 49306-2 ####[facility] LABORATORYCLIA [id number] [place] [address] [place] Calcium [Mass/Vol] 9.1 mg/dL Normal 8.5-10.2 [facility] Comment on above: Order Comment: Speci men Type: BLOOD SPECIMENOrdering Facility: [facility] Address: [address] [place] [address] Performed By: #### 3 3959-8, 40603-6, 22460-0, 98608-8 ####[facility] LABORATORYCLIA [id number] [place] [id number] [place] Chloride [Moles/Vol] 104 mmol/L Normal 97-105 [facility] Comment on above: Order Comment: Speci men Type: BLOOD SPECIMENOrdering Facility: [facility] Address: [address] [place] [address] Performed By: #### 3 3959-8, 44001-9, 21919-1, 28734-3 ####[facility] LABORATORYCLIA [id number] [place] [address] [place] CO2 [Moles/Vol] 18 mmol/L Low 22-30 [facility] Comment on above: Order Comment: Speci men Type: BLOOD SPECIMENOrdering Facility: [facility] Address: [address] [place] [address] Performed By: #### 3 3959-8, 93159-6, 29036-4, 39397-0 ####[facility] LABORATORYCLIA [id number] [place] [id number] [place] Creatinine [Mass/Vol] 1.14 mg/dL High 0.58-0.96 [facility] Comment on above: Order Comment: Speci men Type: BLOOD SPECIMENOrdering Facility: [facility] Address: [address] [place] [address] Performed By: #### 3 3959-8, 56238-2, 80029-1, 72037-4 ####[facility] LABORATORYCLIA [id number] [place] [id number] [place] ESTIMATED GLOMERULAR FILTRATION RATE 48 mL/min/1.73m??? Low >=60 [facility] Comment on above: Order Comment: Samirrobson mason Type: BLOOD SPECIMENOrdering Facility: [facility] Address: [address] [place] [address] Result Comment: Isa mated Glomerular Filtration Rate [...] actual GFR. Performed By: #### 3 3959-8, 32704-5, 84829-3, 95025-8 ####[facility] LABORATORYCLIA [id number] [place] [address] [place] Glucose [Mass/Vol] 122 mg/dL High 74-99 [facility] Comment on above: Order Comment: Rhina mason Type: BLOOD SPECIMENOrdering Facility: [facility] Address: [address] [place] [address] Result Comment: The [place] [employer] (ADA) provides guidance for cutoff [...] Standards of Medical Care in Diabetes 2016, [place] [employer]. Diabetes Care. 2016.39(Suppl 1). Performed By: #### 3 3959-8, 98143-2, 92567-7, 46557-8 ####[facility] LABORATORYCLIA [id number] [place] [id number] [place] Potassium [Moles/Vol] 4.4 mmol/L Normal 3.7-5.1 [facility] Comment on above: Order Comment: Speci men Type: BLOOD SPECIMENOrdering Facility: [facility] Address: [address] [place] [address] Performed By: #### 3 3959-8, 58812-4, 05963-7, 71148-8 ####[facility] LABORATORYCLIA [id number] [address] STATES OF [facility] Protein [Mass/Vol] 6.6 g/dL Normal 6.3-8.0 [facility] Comment on above: Order Comment: Speci men Type: BLOOD SPECIMENOrdering Facility: [facility] Address: [address] [place] [address] Performed By: #### 3 3959-8, 61724-0, 05954-8, 15965-3 ####[facility] LABORATORYCLIA [id number] [address] Sodium [Moles/Vol] 139 mmol/L Normal 136-144 [facility] Comment on above: Order Comment: Speci men Type: BLOOD SPECIMENOrdering Facility: [facility] Address: [address] [place] [address] Performed By: #### 3 3959-8, 94209-4, 56727-5, 32978-7 ####[facility] LABORATORYCLIA [id number] [address] STATES [facility] Urea nitrogen [Mass/Vol] 35 mg/dL High 7-21 [facility] Comment on above: Order Comment: Speci men Type: BLOOD SPECIMENOrdering Facility: [facility] Address: [address] [place] [address] Performed By: #### 3 3959-8, 91942-2, 25445-4, 64930-0 ####[facility] LABORATORYCLIA [id number] [address] [place] ED NOTEon 06-16-2022 ED NOTE HNO ID: [id number] Author: Adela Cortez RN Service: Emergency Medicine Author Type: Registered Nurse Type: ED Notes Filed: 06/16/2022 11:27 AM Note Text: Pts aptt is >139. Nongram states to hold dose and let MD know. Vascular resident made aware, MD ordered to hold dose x1 hour and then redraw aptt. [facility] ED NOTE HNO ID: [id number] Author: Nanyc Scott RN Service: Emergency Medicine Author Type: Registered Nurse Type: ED Notes Filed: 06/16/2022 7:13 AM Note Text: CT notified that pt has been moved to new room and is ready for testing [facility] ED NOTE HNO ID: [id number] Author: Marleen Blank RN Service: ? Author Type: Registered Nurse Type: ED Notes Filed: 06/16/2022 6:59 AM Note Text: Bed: 19-ED Expected date: Expected time: Means of arrival: Comments: [facility] ED NOTE HNO ID: [id number] Author: Nancy Scott RN Service: Emergency Medicine Author Type: Registered Nurse Type: ED Notes Filed: 06/16/2022 6:44 AM Note Text: CT delayed due to pt needing to move rooms because of bed bugs. [facility] ED NOTE HNO ID: [id number] Author: Nancy Scott RN Service: Emergency Medicine Author Type: Registered Nurse Type: ED Notes Filed: 06/16/2022 3:09 AM Note Text: CT form faxed, ptt sent [facility] ED NOTE HNO ID: [id number] Author: Nancy Scott RN Service: Emergency Medicine Author Type: Registered Nurse Type: ED Notes Filed: 06/16/2022 3:02 AM Note Text: US notified [facility] ED NOTE HNO ID: [id number] Author: Nancy Scott RN Service: Emergency Medicine Author Type: Registered Nurse Type: ED Notes Filed: 06/16/2022 2:48 AM Note Text: CT notified [facility] ED NOTE HNO ID: [id number] Author: Nancy Scott RN Service: Emergency Medicine Author Type: Registered Nurse Type: ED Notes Filed: 06/16/2022 2:43 AM Note Text: Labs sent Normal [facility] ED NOTE HNO ID: [id number] Author: Davian Chen RN Service: ? Author Type: Registered Nurse Type: ED Notes Filed: 06/16/2022 2:06 AM Note Text: Bed: 15-ED Expected date: Expected time: Means of arrival: Comments: ramesh Normal [facility] ED PROV NOTEon 06-16-2022 ED PROV NOTE HNO ID: [id number] Author: Vanessa Trevizo DO Service: Emergency Medicine [...] [facility]iatric [facility] ED PROV NOTE HNO ID: [id number] Author: Vanessa Trevizo DO Service: Emergency Medicine [...] for final disposition and diagnosis. Vanessa Trevizo 06/16/22 0323 Normal [facility] EKGon 06-16-2022 Electrocardiogram Ventricular Rate : 1 13 BPM Atrial Rate : 122 BPM QRS Duration : 100 ms Q-T Interval : 282 ms QTC Calculation(Bazett) : 386 ms Calculated R [place] : 46 degrees Calculated T [place] : -40 degrees ATRIAL FIBRILLATION WITH RAPID VENTRICULAR RESPONSE ABNORMAL QRS-T ANGLE, CONSIDER PRIMARY T WAVE ABNORMALITY ABNORMAL ECG NO PREVIOUS ECGS AVAILABLE Confirmed by MD LEONE CAROL ([id number]) on 06/16/2022 6:43:12 PM NAME : MEL GUADARRAMA PID : [id number] : 1940 Gender : Female Race : ORD : Procedure Date : Jun 16 2022 07:37:07 Edit Date : Jun 16 2022 18:43:17 Diagnosis: ATRIAL FIBRILLATION WITH RAPID VENTRICULAR RESPONSE ABNORMAL QRS-T ANGLE, CONSIDER PRIMARY T WAVE ABNORMALITY ABNORMAL ECG NO PREVIOUS ECGS AVAILABLE Confirmed by MD LEONE CAROL ([id number]) on 06/16/2022 6:43:12 PM Test Reason : Location : 4 : [place] [address] Overread By : MD LEONE CAROL Edited By : MD LEONE CAROL Referred By : , Acquired by : PATRICIA MOE Normal [facility] HIGH SENSITIVITY TROPONIN T (INITIAL)on 06-16-2022 HIGH SENSITIVITY CHRISTOPHER 34 ng/L High <12 [facility] Comment on above: Order Comment: Speci men Type: BLOOD SPECIMENOrdering Facility: [facility] Address: [address] [place], [place] [id number] Result Comment: When assessing risk for acute [...] MACE. Performed By: #### 3 2355-0 #### [facility] CLIA [id number] [address] STATES OF [facility] HIGH SENSITIVITY TROPONIN T (SECOND)on 06-16-2022 HIGH SENSITIVITY CHRISTOPHER 28 ng/L High <12 [facility] Comment on above: Order Comment: Samirrobson mason Type: BLOOD SPECIMENOrdering Facility: [facility] Address: [address] [place] [address] Result Comment: When assessing risk for acute [...] 30 day MACE. Performed By: #### L [id number] ####[facility] LABORATORYCLIA [id number] [address] HIGH SENSITIVITY TROPONIN T (THIRD) 3 HRS AFTER INITIALon 06-16-2022 HIGH SENSITIVITY CHRISTOPHER 23 ng/L High <12 [facility] Comment on above: Order Comment: Rhina isabella Type: BLOOD SPECIMENOrdering Facility: [facility] Address: [address] [place] [address] Result Comment: When assessing risk for acute [...] 30 day MACE. Performed By: #### L [id number] ####[facility] LABORATORYCLIA [id number] [address] OF [facility] HISTORY PHYSICALon HISTORY PHYSICAL HNO ID: [id number] Author: Kristen Jones APRN.CNP Service: Hospital Medicine Author Type: Nurse Practitioner Type: HANDP Filed: 06/16/2022 1:27 PM Note Text: DEPARTMENT OF HOSPITAL MEDICINE HISTORY AND PHYSICAL EXAM SERVICE DATE: 06/16/2022 SERVICE TIME: 12:02 PM Primary Care Physician: Dr. Evans Admitting Provider: Kristen Jones APRN.CNP NIGHT AND WEEKEND COVERAGE: After 7pm, please call cross cover pager #[phone] Subjective CHIEF COMPLAINT: Left leg pain, discoloration [...] this patient has 2 charts. Mel Garcia [id number] and Mel Castillo [id number]. PAST MEDICAL HISTORY Diagnosis Date Acute bacterial [...] chest pain Gastrointestinal: + diarrhea x 1 [employer] Genitourinary: Denies dysuria Musculoskeletal: + left leg [...] included)... Normal [facility] Magnesium [Mass/Vol] 2.4 mg/dL High 1.7-2.3 [facility] Comment on above: Order Comment: Speci men Type: BLOOD SPECIMENOrdering Facility: [facility] Address: [address] [place] [address] Performed By: #### 3 3959-8, 69329-3, 38311-1, 57156-0 ####[facility] LABORATORYCLIA [id number] [address] NT-proBNP [facility] 06-16 Natriuretic peptide.B prohormone N-Terminal [Mass/Vol] 4156 pg/mL High <450 [facility] Comment on above: Order Comment: Specrobson mason Type: BLOOD SPECIMEN [facility] Address: [address] [place] [address] Performed By: #### T SCR #### [facility] CLIA [id number] [address] NURSING PROGon 06-16-2022 NURSING PROG HNO ID: [id number] Author: Kayden José RN Service: Trauma Author [...] Comment: Speci isabella Type: BLOOD SPECIMENOrdering Facility: [facility] Address: [address] [place] [address] Result Comment: Mayra min K Antagonist (VKA) Therapeutic Range: INR 2 to 3 (Target INR of 2.5) Note: For patients treated with VKA drugs, such as warfarin, the [place] [employer] 2012 Guideline recommends [...] Chest 2012, 141:7S-47S Daren RA, et al. JAC 2017, 70: 252-289 Performed By: #### 3 4528-0, 82096-0 ####[facility] LABORATORYCLIA [id number] [address] [place] PT Coag (PPP) [Time] 11.3 s Normal 9.7-13.0 [facility] Comment on above: Order Comment: Speci men Type: BLOOD SPECIMENOrdering Facility: [facility] Address: [address] [place] [address] Performed By: #### 3 4528-0, 14386-4 ####[facility] LABORATORYCLIA [id number] [address] STATES [facility] Procalcitonin SerPl-ncon 08-16-2021 Procalcitonin [Mass/Vol] 0.19 ng/mL High <0.09 [facility] Comment on above: Order Comment: Speci men Type: BLOOD SPECIMEN [facility] Address: [address] [place] [address] Result Comment: For a guided interpretation of test results, please visit the Change in Procalcitonin Calculator, [email or web address]. Performed By: #### T SCR #### [facility] CLIA [id number] [address] STATES OF [facility] SARS-CoV-2 RNA Resp Ql OXANA+p robeon 06-16-2022 SARS-CoV-2 (COVID-19) RNA OXANA+probe Ql (Resp) COVID 19 RESULT: SARS-CoV-2 (Agent of COVID-19) Detected by RT-PCR or equivalent method. This test has been authorized by FDA under an Emergency Use Authorization (EUA). Normal [facility] Comment on above: Performed By: #### 9 4500-6 #### [facility] CLIA [id number] [address] [place] [address] [place] US DVT LOWER LTon 06-16-2022 DVT LOWER LT * * *Final Report* [...] Torres MD on 0516 via verbal communication. Veterans Employment Representative: DEVEN Transcribe Date/Time: Jun 16 2022 5:07A Dictated by : SKIP NOEL MD This examination was interpreted and the report reviewed and electronically signed by: SKIP NOEL MD on Jun 16 2022 5:17AM EST [id number] Normal [facility] aPTT PPPon 06-16-2022 aPTT Coag (PPP) [Time] 74.2 s High 23.0-32.4 [facility] Comment on above: Order Comment: Speci men Type: BLOOD SPECIMENOrdering Facility: [facility] Address: [address] [place] [address] Performed By: #### 1 4979-9 ####[facility] LABORATORYCLIA [id number] [address] aPTT Coag (PPP) [Time] 134.7 s High 23.0-32.4 [facility] Comment on above: Order Comment: Speci men Type: BLOOD SPECIMENOrdering Facility: [facility] Address: [address] [place] [address] Performed By: #### 1 4979-9 ####[facility] LABORATORYCLIA [id number] [address] aPTT Coag (PPP) [Time] s High 23.0-32.4 [facility] Comment on above: Order Comment: Speci men Type: BLOOD SPECIMENOrdering Facility: [facility] Address: [address] [place] [address] Performed By: #### 1 4979-9 ####[facility] LABORATORYCLIA [id number] [address] aPTT Coag (PPP) [Time] 21.7 s Low 23.0-32.4 [facility] Comment on above: Order Comment: Speci men Type: BLOOD SPECIMENOrdering Facility: [facility] Address: [address] [place], [place] [phone] Performed By: #### 3 4528-0, 90659-5 ####[facility] [id number] [address] CULTURE AND STAIN - TISSUEon 03-10-2020 CULTURE AND STAIN - TISSUE 1 Organism Staphylococcus aureus Rare 1 Organism Antibiotic Result Intrp Nafcillin/Oxacillin(AGATA ) = 0.5 S Inducible Clindamycin Resistant(AGATA)Neg Neg Clindamycin(AGATA) = 0.25 S Vancomycin(AGATA) <= 0.5 S Trimeth/Sulfa(AGATA) <= 10 S Linezolid(GAATA) = 2 S Daptomycin(AGATA) = 0.25 S Gentamicin(AGATA) <= 0.5 S Doxycycline(AGATA) <= 0.5 S Tigecycline(AGATA) <= 0.12 S Rifampin(AGATA) <= 0.5 S Normal [facility] Comment on above: Performed By: #### C XTIS #### [address] [address] [id number] #### C/DAMIÁN #### [address] CR Finger(s) Min 2 Views Rig hton 03-07-2020 CR Finger(s) Min 2 Views Right Patient Name: MEL POP Diagnostic Radiology Exam Date/Time 03/06/2020 10:30:00 EDT Exam CR Finger(s) Min 2 Views Right Ordering Physician MD GUSTAVO, JAYLA Stoll Accession Number [id number] CPT4 Codes 02261 () Reason For Exam pain Report Right [...] was communicated to JAYLA MCMAHAN via the [employer] Critical Result system on 03/07/2020 8:07 PM EDT, Message ID [id number]. Report Dictated on Final Dictating Physician: MD PERRY DIANE Signed Date and Time: 03/07/2020 8:07 pm Signed by: MD PERRY DIANE Transcribed Date and Time: 03/07/2020 8:08 Normal [facility] CULTURE ANAEROBEon 0 CULTURE ANAEROBE CULTURE ANAEROBE --> Status: F No growth of anaerobes at 5 days. STAIN GRAM --> Status: F Few polymorphonuclear cells/lpf. No organisms seen. No organisms seen. Normal [facility] Comment on above: Performed By: #### C XTIS #### [address] [address] [id number] #### C/DAMIÁN #### [address] [address] Vital Signs Date Time Vital Sign Value Performing Clinician Facility 12-24-2024 14:45-0400 Body mass index (BMI) [Ratio] 27.1 kg/m2 Kristyn Krzysztof MD Work Phone: [facility] [employer] 12-24-2024 14:45-0400 Body weight 69.4 kg Kristyn Hilario MD Work Phone: [facility] 12-05-2024 10:20-0400 Body height 160 cm Kristyn Hilario MD Work Phone: [facility] [employer] 12-05-2024 10:20-0400 Body mass index (BMI) [Ratio] 29.23 kg/m2 Kristyn Hilario MD Work Phone: [facility] [employer] 12-05-2024 10:20-0400 Body weight 74.84 kg Kristyn Hilario MD Work Phone: [facility] 12-05-2024 10:20-0400 Diastolic blood pressure 78 mm[Hg] Kristyn Hilario MD Work Phone: [facility] [employer] 12-05-2024 10:20-0400 Heart rate 78 /min Kristyn Hilario MD Work Phone: [facility] [employer] 12-05-2024 10:20-0400 Respiratory rate 18 /min Kristyn Hilario MD Work Phone: [facility] [employer] 12-05-2024 10:20-0400 SaO2% (BldA) [Mass fraction] 94 % Kristyn Hilario MD Work Phone: [facility] [employer] 12-05-2024 10:20-0400 Systolic blood pressure 102 mm[Hg] Kristyn Hilario MD Work Phone: [facility] [employer] 11-22-2024 13:45-0400 Diastolic blood pressure 54 mm[Hg] Kristyn Hilario MD Work Phone: [facility] [employer] 11-22-2024 13:45-0400 Heart rate 58 /min Kristyn Hilario MD Work Phone: [facility] [employer] 11-22-2024 13:45-0400 Respiratory rate 18 /min Kristyn Hilario MD Work Phone: [facility] [employer] 11-22-2024 13:45-0400 SaO2% (BldA) [Mass fraction] 95 % Kristyn Hilario MD Work Phone: [facility] [employer] 11-22-2024 13:45-0400 Systolic blood pressure 139 mm[Hg] Kristyn Hilario MD Work Phone: [facility] [employer] 11-22-2024 13:15-0400 Body temperature 97.11 [degF] Kristyn Hilario MD Work Phone: [facility] [employer] 11-22-2024 08:25-0400 Body height 160 cm Kristyn Hilario MD Work Phone: [facility] [employer] 11-22-2024 08:25-0400 Body mass index (BMI) [Ratio] 29.23 kg/m2 Kristyn Hilario MD Work Phone: [facility] [employer] 11-22-2024 08:25-0400 Body weight 74.84 kg Kristyn Hilario MD Work Phone: [facility] [employer] 11-05-2024 15:42-0400 Body height 160 cm Kristyn Hilario MD Work Phone: [facility] [employer] 11-05-2024 15:42-0400 Body mass index (BMI) [Ratio] 29.23 kg/m2 Kristyn Hilario MD Work Phone: [facility] [employer] 11-05-2024 15:42-0400 Body weight 74.84 kg Kristyn Hilario MD Work Phone: [facility] [employer] 11-05-2024 15:42-0400 Diastolic blood pressure 64 mm[Hg] Kristyn Hilario MD Work Phone: [facility] [employer] 11-05-2024 15:42-0400 Heart rate 65 /min Kristyn Hilario MD Work Phone: [facility] [employer] 11-05-2024 15:42-0400 Respiratory rate 18 /min Kristyn Hilario MD Work Phone: [facility] [employer] 11-05-2024 15:42-0400 SaO2% (BldA) [Mass fraction] 98 % Kristyn Hilario MD Work Phone: [facility] [employer] 11-05-2024 15:42-0400 Systolic blood pressure 122 mm[Hg] Kristyn Hilario MD Work Phone: [employer] 08-22-2024 10:32-0500 Body height 160 cm Henok Darlyn PA-C Work Phone: [employer] 08-22-2024 10:32-0500 Body mass index (BMI) [Ratio] 29.23 kg/m2 Henok Darlyn PA-C Work Phone: [employer] 08-22-2024 10:32-0500 Body weight 74.84 kg Henok Darlyn PA-C Work Phone: [employer] 08-22-2024 10:32-0500 Diastolic blood pressure 62 mm[Hg] Henok Darlyn PA-C Work Phone: [employer] 08-22-2024 10:32-0500 Respiratory rate 18 /min Henok Darlyn PA-C Work Phone: [employer] 08-22-2024 10:32-0500 Systolic blood pressure 104 mm[Hg] Henok Darlyn PA-C Work Phone: [employer] 08-16-2024 07:19-0500 Body temperature 97.59 [degF] Mariana King DO Work Phone: [employer] 08-16-2024 07:19-0500 Diastolic blood pressure 66 mm[Hg] Mariana King DO Work Phone: [employer] 08-16-2024 07:19-0500 Heart rate 85 /min Mariana King DO Work Phone: [employer] 08-16-2024 07:19-0500 Respiratory rate 18 /min Mariana King DO Work Phone: [employer] 08-16-2024 07:19-0500 SaO2% (BldA) [Mass fraction] 94 % Mariana King DO Work Phone: [employer] 08-16-2024 07:19-0500 Systolic blood pressure 135 mm[Hg] Mariana King DO Work Phone: [employer] 08-03-2024 08:32-0500 Body height 162 cm Mariana King DO Work Phone: [employer] 08-03-2024 08:32-0500 Body mass index (BMI) [Ratio] 28.58 kg/m2 Mariana King DO Work Phone: [employer] 08-03-2024 08:32-0500 Body weight 75 kg Mariana King DO Work Phone: [employer] 07-07-2024 06:03-0500 Body temperature 97.7 [degF] Wm Mudrakola DO Work Phone: [employer] 07-07-2024 06:03-0500 Diastolic blood pressure 67 mm[Hg] Wm Mudrakola DO Work Phone: [employer] 07-07-2024 06:03-0500 Heart rate 69 /min Wm Mudrakola DO Work Phone: [facility] [employer] 07-07-2024 06:03-0500 Respiratory rate 12 /min Wm Mudrakola DO Work Phone: [employer] 07-07-2024 06:03-0500 SaO2% (BldA) [Mass fraction] 94 % Wm Mudrakola DO Work Phone: [employer] 07-07-2024 06:03-0500 Systolic blood pressure 149 mm[Hg] Wm Mudrakola DO Work Phone: [employer] 07-05-2024 10:00-0500 Body height 162.6 cm Wm Mudrakola DO Work Phone: [employer] 07-05-2024 10:00-0500 Body mass index (BMI) [Ratio] 27.46 kg/m2 Wm Mudrakola DO Work Phone: [employer] 07-05-2024 10:00-0500 Body weight 72.58 kg Wm Mudrakola DO Work Phone: [employer] 05-14-2024 15:34-0400 Body height 162.6 cm Jared Evans MD Work Phone: [facility] [employer] 05-14-2024 15:34-0400 Body mass index (BMI) [Ratio] 25.23 kg/m2 Jared Evans MD Work Phone: [employer] 05-14-2024 15:34-0400 Body weight 66.68 kg Jared Evans MD Work Phone: [employer] 04-25-2024 13:39-0400 Body height 162.6 cm Henoknette Pipernes PA-C Work Phone: [employer] 04-25-2024 13:39-0400 Body mass index (BMI) [Ratio] 25.23 kg/m2 Henok Hernandez PA-C Work Phone: [facility] [employer] 04-25-2024 13:39-0400 Body weight 66.68 kg Henok Hernandez PA-C Work Phone: [employer] 04-25-2024 13:39-0400 Diastolic blood pressure 66 mm[Hg] Henok Hernandez PA-C Work Phone: [facility] [employer] 04-25-2024 13:39-0400 Heart rate 98 /min Henok Hernandez PA-C Work Phone: [employer] 04-25-2024 13:39-0400 Respiratory rate 18 /min Henok Pipernes PA-C Work Phone: [employer] 04-25-2024 13:39-0400 SaO2% (BldA) [Mass fraction] 95 % Henok Hernandez PA-C Work Phone: [employer] 04-25-2024 13:39-0400 Systolic blood pressure 110 mm[Hg] Henok Hernandez PA-C Work Phone: [facility] [employer] 04-13-2024 08:04-0400 Heart rate 92 /min Winifred Cornell DO Work Phone: [facility] [employer] 04-13-2024 07:49-0400 Body temperature 97.2 [degF] Winifred Cornell DO Work Phone: [employer] 04-13-2024 07:49-0400 Diastolic blood pressure 89 mm[Hg] Winifred Cornell DO Work Phone: [employer] 04-13-2024 07:49-0400 Respiratory rate 20 /min Wiinfred Cornell DO Work Phone: [facility] [employer] 04-13-2024 07:49-0400 SaO2% (BldA) [Mass fraction] 98 % Winifred Cornell DO Work Phone: [facility] [employer] 04-13-2024 07:49-0400 Systolic blood pressure 156 mm[Hg] Winifred Cornell DO [facility] 04-03-2024 17:52-0400 Body height 162.6 cm Winifred Cornell DO Work Phone: [employer] 04-03-2024 17:52-0400 Body mass index (BMI) [Ratio] 27.38 kg/m2 Winifred Cornell DO Work Phone: [employer] 04-03-2024 17:52-0400 Body weight 72.35 kg Winifred Cornell DO Work Phone: [facility] [employer] 07-27-2023 14:23-0500 Body height 162.6 cm Ming Weinberg MD Work Phone: [employer] 07-27-2023 14:23-0500 Body mass index (BMI) [Ratio] 27.29 kg/m2 Ming Weinberg MD Work Phone: [employer] 07-27-2023 14:23-0500 Body weight 72.12 kg Ming Weinberg MD Work Phone: [facility] [employer] 05-14-2022 15:01-0400 Diastolic blood pressure 84 mm[Hg] Jared Velazquez PA-C Work Phone: [facility] 05-14-2022 15:01-0400 Systolic blood pressure 154 mm[Hg] Jared Slabaugh PA-C Work Phone: [facility] 05-14-2022 14:32-0400 Body height 162.6 cm Jared Velazquez PA-C Work Phone: [facility] 05-14-2022 14:32-0400 Body weight 72.58 kg Jared Velazquez PA-C Work Phone: [facility] 05-14-2022 14:32-0400 Heart rate 71 /min Jared Velazquez PA-C Work Phone: [facility] 05-14-2022 14:32-0400 Respiratory rate 16 /min Jared Velazquez PA-C Work Phone: [facility] 05-14-2022 14:32-0400 SaO2% (BldA) [Mass fraction] 98 % Jared Velazquez PA-C Work Phone: [facility] 03-07-2020 09:57-0400 Body Temperature 98.71 [degF] [employer] [place] 03-07-2020 09:57-0400 BP Diastolic 64 mm[Hg] [facility]la [facility] [place] 03-07-2020 09:57-0400 BP Systolic 161 mm[Hg] Jayla [facility] [place] 03-07-2020 09:57-0400 Pulse (Heart Rate) 77 /min Jayla [facility] [place] 03-07-2020 09:57-0400 Pulse Oximetry 96 % Jayla [facility] [place] 03-07-2020 08:32-0400 Respiratory Rate 14 /min Jayla [employer], [place] 02-08-2020 20:50-0400 Body Temperature 97.5 [degF] Mrayuri [employer] [place] 02-08-2020 20:50-0400 BP Diastolic 81 mm[Hg] [facility] [place] 02-08-2020 20:50-0400 BP Systolic 193 mm[Hg] [facility] [place] 02-08-2020 20:50-0400 Pulse (Heart Rate) 68 /min Maryuri King [facility] [place] 02-08-2020 20:50-0400 Pulse Oximetry 97 % [facility] [facility] , [place] 02-08-2020 20:50-0400 Respiratory Rate 16 /min [facility] [place] Encounters Encounter Date Encounter Type Care Provider Facility Start: 02-15-2025 ambulatory Megan Katsaros OLS Faci lity:[place] Start: 02-11-2025 ambulatory Megan Katsaros OLS Faci lity:[place] Start: 02-07-2025 ambulatory Peter Katsaros OLS Faci lity:[place] Start: 02-04-2025 ambulatory Megan Katsaros OLS Faci lity:[place] Start: 01-31-2025 ambulatory Megan Katsaros OLS Faci lity:[place] Start: 01-28-2025 ambulatory Megan Katsaros OLS Faci lity:[place] Start: 01-25-2025 ambulatory Megan Katsaros OLS Faci lity:[place] Start: 01-23-2025 ambulatory Megan Katsaros OLS Faci lity:[place] Start: 01-22-2025 ambulatory Peter Katsaros OLS Faci lity:[place] Start: 01-21-2025 ambulatory Peter Katsaros OLS Faci lity:[place] Start: 01-17-2025 ambulatory Peter Katsaros OLS Faci lity:[place] Start: 01-16-2025 ambulatory Megan Katsaros OLS Faci lity:[place] Start: 01-15-2025 ambulatory Peter Katsaros OLS Faci lity:[place] Start: 01-07-2025 ambulatory Peter Katsaros OLS Faci lity:[place] Start: 01-02-2025 End: 01-02-2025 Orders Only Namrata Christensen Ophthalmology Comment on above: 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) Right retinal detach ment (Primary Dx); Hemorrhagic choroidal detachment of right eye; Pseudophakia, right eye Start: 12-24-2024 End: 12-24-2024 ambulatory [facility] Start: 12-24-2024 End: 12-24-2024 Office outpatient visit 15 minutes Kristyn Hilario MD Work Phone: [facility] Vascular Miguel Ángel Comment on above: Aftercare following surgery of the circulatory system (Primary Dx); PAD (peripheral artery disease) (HCC) Start: 12-13-2024 End: 02-12-2025 Follow-up encounter Shivani Rayo CNP Work Phone: [facility] Vascular Surgery Rojelio Comment on above: Vascular US lower ex tremity arterial duplex right with MICHELLE Start: 12-13-2024 End: 12-13-2024 ambulatory MEGAN TIDWELLFOZIA [facility] Start: 12-13-2024 End: 12-13-2024 Subsequent hospital visit by physician Kristyn Hilario MD Work Phone: [facility] Vascular Lab Comment on above: Skin ulcer of toe of right foot, limited to breakdown of skin (HCC); PAD (peripheral artery disease) (HCC); Aftercare following surgery of the circulatory system Start: 12-05-2024 End: 12-05-2024 ambulatory [facility] Start: 12-05-2024 End: 12-05-2024 Office outpatient visit 10 minutes Kristyn Hilario MD [facility] Phone: [facility] Comment on above: Skin ulcer of toe of right foot, limited to breakdown of skin (HCC) (Primary Dx); PAD (peripheral artery disease) (HCC); Aftercare following surgery of the circulatory system Start: 11-22-2024 End: 11-22-2024 ambulatory [facility] Start: 11-22-2024 End: 11-22-2024 Subsequent hospital visit by physician Kristyn Hilario MD Work Phone: [facility] MA[facility] OR Start: 11-15-2024 End: 11-15-2024 ambulatory Megan Montoya [facility] Facility:[place] Start: 11-09-2024 End: 11-13-2024 ambulatory Henok Santizo PA-C Work Phone: [facility] Kevin Del Rosario Comment on above: 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) (Primary Dx) Pre-op evaluation (P rimary Dx) Start: 11-09-2024 End: 11-13-2024 Preprocedural examination done Henok Santizo PA-C [facility] Work Phone: Start: 11-05-2024 End: 11-05-2024 ambulatory JARED [facility] Start: 11-05-2024 End: 11-05-2024 Office outpatient visit 25 minutes Kristyn Hilario MD Work Phone: [facility] - [place] Comment on above: PAD (peripheral aidee ry disease) (HCC) (Primary Dx); Skin ulcer of toe of right foot, limited to breakdown of skin (HCC) Start: 10-08-2024 End: 10-08-2024 ambulatory Megan EVERETT [place] Work Phone: Start: 10-08-2024 End: 10-08-2024 Departed Referred Megan Montana [place] [email or web address] Start: 10-08-2024 Registered Referred Megan Rincon Rosangelajered [facility] Start: 10-08-2024 End: 10-08-2024 ambulatory Megan EVERETT Facility:[place] Start: 10-01-2024 End: 10-01-2024 Patient encounter procedure Savana Lopez MD Work Phone: Ophthalmology Comment on above: 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); Right retinal detachment; Postoperative eye state; Pseudophakia, right eye; Subluxation of right lens Start: 10-01-2024 End: 10-01-2024 ambulatory SAVANA LOPEZ Facility:[facility] Start: 09-17-2024 End: 09-17-2024 ambulatory Megan Montoya [facility] Work Phone: Start: 09-17-2024 End: 09-17-2024 Departed Referred Megan Montnaa [employer] Start: 09-17-2024 Registered Referred Megan Rincon Rosangela [email or web address] Start: 09-17-2024 End: 09-17-2024 ambulatory Megan EVERETT Facility:[place] Start: 09-10-2024 End: 09-10-2024 ambulatory Megan EVERETT [place] Work Phone: Start: 09-10-2024 End: 09-10-2024 Departed Referred Megan [employer] [employer] Start: 09-10-2024 Registered Referred Megan Rayo [employer] Start: 09-10-2024 End: 09-10-2024 ambulatory Megan EVERETT Facility:[place] Start: 09-05-2024 End: 09-05-2024 ambulatory SAVANA LOPEZ Facility:[facility] Start: 09-05-2024 End: 09-05-2024 Patient encounter procedure Savana Lopez MD Work Phone: Ophthalmology Comment on above: Postoperative eye st ate; Hemorrhagic choroidal detachment of right eye; Pseudophakia, right eye; Subluxation of right lens Start: 09-03-2024 End: 09-03-2024 ambulatory Megan EVERETT [place] Work Phone: Start: 09-03-2024 End: 09-03-2024 Departed Referred Megan Luannevictoriano RayoPaskentamaria c [employer] [facility] Start: 09-03-2024 Registered Referred Megan Stroudfozia Perri [place] [facility] Start: 09-03-2024 End: 09-03-2024 ambulatory Megan EVERETT Facility:[place] Start: 08-22-2024 End: 08-22-2024 ambulatory [facility] Start: 08-22-2024 End: 08-22-2024 Office outpatient visit 15 minutes Henok Santizo PA-C Work Phone: [facility] Vascular - Miguel Ángel Comment on above: Acute deep vein thro mbosis (DVT) of iliac vein of right lower extremity (HCC) (Primary Dx); PAD (peripheral artery disease) (HCC) Start: 08-20-2024 End: 08-20-2024 ambulatory Megan EVERETT [place] Work Phone: Start: 08-20-2024 End: 08-20-2024 Departed Referred Megan Montoya -Paskenta Rosangela [employer] Start: 08-20-2024 End: 08-20-2024 ambulatory Megan EVERETT Facility:[place] Start: 08-03-2024 End: 08-03-2024 Subsequent hospital visit by physician [facility] Exam Room [address] [facility] [address] Comment on above: Arrived Start: 08-03-2024 End: 08-16-2024 ambulatory JARED [facility] Start: 08-03-2024 End: 08-16-2024 Emergency department patient visit Marianasagar King DO Work Phone: [facility] Comment on above: Aspiration pneumonit is (CMS/HCC) (HCC) (Primary Dx); Vomiting and diarrhea; LORENZA (acute kidney injury) (HCC) Start: 08-01-2024 End: 08-01-2024 ambulatory SAVANA A MAMMO Facility:[facility] Start: 08-01-2024 End: 08-01-2024 Patient encounter [...] Start: 07-27-2024 ambulatory SAVANA A MAMMO Facility: [facility] Start: 07-23-2024 End: 07-23-2024 ambulatory SAVANA A MAMMO Facility:[facility] Start: 07-23-2024 End: 07-23-2024 Patient encounter [...] 07-12-2024 Evaluation and management of inpatient SELF Facility:[facility] Start: 07-12-2024 End: 07-12-2024 Orders Only Namrata Christensen ST Ophthalmology Comment on above: 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); Dislocation of intraocular lens, initial encounter Start: 07-12-2024 End: 07-12-2024 Unlisted evaluation and management service John Phelan MD Work Phone: Ophthalmology Comment on above: 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) Start: 07-09-2024 End: 07-09-2024 Evaluation and management of inpatient SELF Facility:[facility] Start: 07-09-2024 End: 07-09-2024 Unlisted evaluation [...] Evaluation and management of inpatient RED HENDERSON Facility:[facility] Start: 07-07-2024 Emergency department patient visit PROVIDER NOT IN SYSTEM Facility:[facility] Start: 07-06-2024 End: 07-06-2024 Telephone encounter Ryan Elizondo MD Work Phone: Ophthalmology Start: 07-05-2024 End: 07-07-2024 ambulatory [facility] Start: 07-05-2024 End: 07-07-2024 Emergency department patient visit Wm Nunes DO Work Phone: [facility] Trauma Neuro Progressive Care Unit PCU 3W Comment on above: Vision loss of right eye (Primary Dx); Acute intractable headache, unspecified headache type; Visual disturbance, subjective Start: 06-19-2024 End: 07-03-2024 ambulatory DEVIKA LEUNG Facility:[facility] Start: 06-19-2024 End: 07-03-2024 Subsequent hospital visit by physician Devika Leung DO Work Phone: [facility] [place] Comment on above: [I63.9] - Cerebral i nfarction Start: 06-10-2024 End: 06-19-2024 Evaluation and management of inpatient TORSTEN SILVA Facility:[facility] Start: 05-22-2024 End: 05-22-2024 ambulatory [facility] Start: 05-21-2024 End: 05-21-2024 [facility] Start: 05-21-2024 End: 05-21-2024 Anticoagulant drug monitoring Harmony Grey [facility] Work Phone: [facility] Anticoagulation Management Service Comment on above: Atrial fibrillation, unspecified type (HCC); Acute venous embolism and thrombosis of deep vessels of proximal end of right lower extremity (HCC) Start: 05-14-2024 End: 05-14-2024 Subsequent hospital visit by physician Jared Evans MD Work Phone: [facility] Non-Invasive Cardiology Comment on above: Paroxysmal atrial fi brillation (HCC) Start: 05-14-2024 End: 05-14-2024 [facility] Start: 05-09-2024 End: 05-09-2024 [facility] Start: 05-09-2024 End: 05-09-2024 Anticoagulant drug monitoring Patty Duggan [facility] Work Phone: [facility] Anticoagulation Management Service Comment on above: Atrial fibrillation, unspecified type (HCC); Acute venous embolism and thrombosis of deep vessels of proximal end of right lower extremity (HCC) Start: 05-01-2024 End: 05-01-2024 ambulatory [facility] Start: 05-01-2024 End: 05-01-2024 Anticoagulant drug monitoring Won Tipton RN [facility] Anticoagulation Management Service Comment on above: Atrial fibrillation, unspecified type (HCC); Acute venous embolism and thrombosis of deep vessels of proximal end of right lower extremity (HCC) Start: 04-27-2024 End: 04-27-2024 Refill Phyllis Aguilera RN Work Phone: [facility] Anticoagulation Management Service Comment on above: Deep vein thrombosis (DVT) of lower extremity, unspecified chronicity, unspecified laterality, unspecified vein (HCC); Atrial fibrillation, unspecified type (HCC); Acute venous embolism and thrombosis of deep vessels of proximal end of right lower extremity (HCC) Start: 04-25-2024 End: 04-25-2024 Office outpatient visit 15 minutes Henok Hernandez PA-C Work Phone: [facility] - [place] Comment on above: Acute deep vein thro mbosis (DVT) of iliac vein of right lower extremity (HCC) (Primary Dx); PAD (peripheral artery disease) (HCC) Start: 04-25-2024 End: 04-25-2024 ambulatory HENOK SANTIZO [facility] Start: 04-23-2024 End: 04-23-2024 ambulatory JARED EVANS [facility] Start: 04-20-2024 End: 07-20-2024 Transcribe Orders Jared Evans MD Work Phone: [facility] Central Scheduling Comment on above: Paroxysmal atrial fi brillation (HCC) (Primary Dx) Start: 04-19-2024 End: 04-19-2024 ambulatory [facility] Start: 04-19-2024 End: 04-19-2024 Anticoagulant drug monitoring Marybeth Rahman [facility] Anticoagulation Management Service Comment on above: Atrial fibrillation, unspecified type (HCC); Acute venous embolism and thrombosis of deep vessels of proximal end of right lower extremity (HCC) Start: 04-16-2024 End: 04-16-2024 ambulatory ANTHONY Mccann [facility] Start: 04-14-2024 End: 04-14-2024 Anticoagulant drug monitoring Ulices Orr PharmD [facility] Pharm[facility] Comment on above: Deep vein thrombosis (DVT) of lower extremity, unspecified chronicity, unspecified laterality, unspecified vein (HCC) (Primary Dx) Start: 04-03-2024 End: 04-13-2024 Evaluation and management of inpatient Winifred Cornell DO Work Phone: [facility] Medical Unit 4N Comment on above: Ischemic leg (Primar y Dx); Right leg pain; Peripheral arterial disease (HCC); Right leg weakness; Atrial fibrillation, unspecified type (HCC) Start: 07-27-2023 End: 07-27-2023 Office outpatient new 30 minutes Ming Weinberg MD Work Phone: [facility] Medical [facility] Comment on above: 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 MRI Comment on above: Abnormal findings on diagnostic imaging of other specified body structures; Pain in left leg Start: 06-01-2023 Transcribe Orders Jared [facility] MD [facility] Comment on above: Abnormal findings on diagnostic imaging of other specified body structures (Primary Dx); Pain in left leg Start: 05-24-2023 End: 05-24-2023 Subsequent hospital visit by physician Jared Evans MD Work Phone: [facility] US Comment on above: Other specified soft tissue disorders Start: 05-23-2023 Transcribe Orders Jared Evans MD [facility] Comment on above: Other specified soft tissue disorders (Primary Dx) Start: 03-08-2023 End: 03-08-2023 Subsequent hospital visit by physician Jared Evans MD Work Phone: [facility] CT Comment on above: Localized swelling, mass and lump, neck Start: 02-28-2023 Transcribe Orders Jared Evans MD [facility] Comment on above: Localized swelling, mass and lump, neck (Primary Dx) Start: 02-22-2023 End: 02-22-2023 Subsequent hospital visit by physician Jared Evans MD Work Phone: [facility] US Comment on above: Localized swelling, mass and lump, neck Start: 02-17-2023 Transcribe Orders Jared Evans MD Work Phone: [facility] Central Scheduling Comment on above: Localized swelling, mass and lump, neck (Primary Dx) Start: 07-06-2022 Telephone encounter Inés Tubbs RN NOC Comment on above: Follow Up Phone Call (All Clear) Start: 06-21-2022 End: 06-21-2022 Evaluation and management of inpatient SIM ELIZABETH Facility:[facility] Start: 06-19-2022 ambulatory Tamara Olivares [facility] [place] [address] CARD/HF/PD Start: 06-16-2022 End: 06-29-2022 Evaluation and management of inpatient BERNIE BIRD Facility:[facility] Start: 05-27-2022 Telephone encounter Jarde pennington MD Work Phone: NOC Comment on [...] visit by physician Jayla Mcmahan Work Phone: [facility] Start: 02-08-2020 End: 02-08-2020 Emergency department patient visit [facility] ED Comment on above: Felon of finger (Alice winifred Dx) Procedures Date Procedure Procedure Detail Performing Clinician Start: 12-24-2024 Follow-up visit JARED EVANS Start: 12-13-2024 Dup-scan lxtr art/ar tl bpgs uni/lmtd study Kristyn Hilario MD Work Phone: Start: 12-05-2024 Follow-up visit JARED EVANS Start: 11-22-2024 FL GUIDANCE OR USE O NLY - NON-RESULTABLE Kristyn Hilario MD Work Phone: Start: 11-05-2024 Follow-up visit JARED EVANS Start: 10-01-2024 Ophthalmic ultrasoun d dx b-scan w/wo a-scan Savana Lopez MD Work Phone: Start: 09-03-2024 Urine culture Megan Luanne acevedoallison EVERETT Start: 08-22-2024 Follow-up visit Follow-up HENOK HUGHES Start: 08-16-2024 Glucose quantitative blood xcpt reagent strip Devika Escobar MD Work Phone: Start: 08-05-2024 Comprehensive metabo lic panel Shivani Dimas PA-C Work Phone: Start: 08-05-2024 Comprehensive metabo lic panel Sihvani Dimas PA-C Work Phone: Start: 08-04-2024 Comprehensive [...] Start: 07-05-2024 Comprehensive metabo lic panel Christy Randa DO Work Phone: Start: 07-05-2024 Ecg routine ecg w/le ast 12 lds trcg only w/o i&r Wm Aracelirakola DO Work Phone: Start: 07-05-2024 Cerebral perfusion a nalys ct w/blood flow&volume Wm Aracelirakola DO Work Phone: Start: 07-05-2024 Ct angiography head w/contrast/noncontrast Wm Kimla DO Work Phone: Start: 07-05-2024 End: 07-05-2024 Blood count complete automated Wm Kimla DO Work Phone: Start: 07-02-2024 Blood count [...] JARED EVANS Start: 05-21-2024 Prothrombin time Histor jcl Yobany BROWNE Work Phone: Start: 05-14-2024 Echo tthrc r-t 2d w/wom-mode compl spec&colr d Jared Evans MD Work Phone: Start: 05-09-2024 Prothrombin time Histor ical Yobany BROWNE Work Phone: Start: 05-01-2024 Prothrombin time Histor jcl Yobany BROWNE Work Phone: Start: 04-25-2024 Follow-up visit JARED EVANS Start: 04-19-2024 Prothrombin time Histor jcl Yobany BROWNE Work Phone: Start: 04-13-2024 Basic metabolic pane l calcium total Robert Vigil MD Work Phone: Start: 04-12-2024 Basic metabolic pane l calcium total Robert Vigil MD Work Phone: Start: 04-11-2024 Thromboplastin time partial plasma/whole blood Jordin Roldan MD Work Phone: Start: 04-11-2024 Basic metabolic pane l calcium total Robert Vigil MD Work Phone: Start: 04-10-2024 Thromboplastin time partial plasma/whole blood Pratibha Felicianoi DO Work Phone: Start: 04-10-2024 Basic metabolic pane l calcium total Robert Vigil MD Work Phone: Start: 04-09-2024 Thromboplastin time partial plasma/whole blood Pratibha Felicianoi DO Work Phone: Start: 04-09-2024 Radiologic exam ches t single view Robert Vigil MD Work Phone: Start: 04-09-2024 Thromboplastin time partial plasma/whole blood Pratibha Avelar DO Work Phone: Start: 04-09-2024 Basic metabolic pane l calcium total Robert Vigil MD Work Phone: Start: 04-08-2024 Thromboplastin time partial plasma/whole blood Pratibha Avelar DO Work Phone: Start: 04-08-2024 Thromboplastin time partial plasma/whole blood Pratibha Felicianoi DO Work Phone: Start: 04-08-2024 Basic metabolic pane l calcium total Robert Vigil MD Work Phone: Start: 04-07-2024 Thromboplastin time partial plasma/whole blood Pratibha Oliveroscki DO Work Phone: Start: 04-07-2024 Basic metabolic pane l calcium total Robert Vigil MD Work Phone: Start: 04-06-2024 Thromboplastin time partial plasma/whole blood Pratibha Avelar DO Work Phone: Start: 04-06-2024 FL GUIDANCE OR USE O NLY - NON-RESULTABLE Kristyn Hilario MD Work Phone: Start: 04-06-2024 Antibody screen JARED EVANS Comment on above: Performed By: #### L [id number] ####Tax Services Manager: VELMA VALADEZ ([phone])[facility] ([facility])[address] [place] [address] Start: 04-06-2024 Blood typing serologic abo Kristyn Hilario MD Work Phone: Start: 04-06-2024 End: 04-06-2024 Prq transluminal mechanical thrombectomy vein Kristyn Hilario MD Work Phone: Start: 04-06-2024 Basic metabolic [...] abdl aorta&bi il iofem w/contrast&postp Bernie Cutler ELECTRIC METER REPAIRER HELPER - SCHOOL NURSE Work Phone: Start: 04-03-2024 Ct head/brain w/o co ntrast material Bernie Cutler ELECTRIC METER REPAIRER HELPER - SCHOOL NURSE Work Phone: Start: 04-03-2024 Comprehensive metabo lic panel Bernie Cutler ELECTRIC METER REPAIRER HELPER - SCHOOL NURSE Work Phone: Start: 04-03-2024 Ecg routine ecg w/le ast 12 lds trcg only w/o i&r Bernie Cutler ELECTRIC METER REPAIRER HELPER - SCHOOL NURSE Work Phone: Start: 06-15-2023 Mri lower extrem oth /thn jt w/o & w/contr matr Jared Evans MD Work Phone: Start: 05-24-2023 Dup-scan xtr veins unilateral/limited study Jared Evans MD Work Phone: Start: 06-21-2022 Antibody screen BERNIE BIRD Comment on above: Order Comment: Speci men Type: BLOOD SPECIMEN Ordering Facility: [facility] Address: [address] [place] [id number] Performed By: #### T SCR #### [facility] CLIA [id number] [address] [place] [address] [place] Start: 03-07-2020 OPERATIVE REPORT 3m Sca nning Start: 02-08-2020 INCISION AND DRAINAGE Jose dunn Morgan Work Phone: Plan of Treatment Date Care Activity Detail Author Start: 02-15-2029 DTaP/Tdap/Td vaccine (2 - Td) DTaP/Tdap/Td vaccine (2 - Td) [facility] [place] Start: 02-15-2029 DTaP/Tdap/Td Vaccines (2 - Td or Tdap) DTaP/Tdap/Td Vaccines (2 - Td or Tdap) [facility] Start: 02-15-2029 Urine microalbumin profile DTaP,Tdap,Td Vaccine (2 - Td or Tdap) [facility] Start: 08-05-2027 Diabetes Screening Diabetes Screening [facility] Start: 07-07-2027 Diabetes Screening Diabetes Screening [facility] Start: 07-06-2027 Diabetes Screening Diabetes Screening [facility] Start: 06-21-2027 Diabetes Screening Diabetes Screening [facility] Start: 08-16-2025 End: 01-23-2026 OCT MACULA CIRRUS OD (RIGHT EYE) OCT MACULA CIRRUS OD (RIGHT EYE) [facility] Imaging Routine Postoperative eye state 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, right eye Subluxation of right lens Expected: 08/16/2025, Expires: 01/23/2026 [facility] Work Phone: Comment on above: Expected: 08/16/2025, Expires: Start: 08-05-2025 Diabetes: Estimated Glomerular Filtration Rate for Kidney Health Diabetes: Estimated Glomerular Filtration Rate for Kidney Health [facility] Start: 08-04-2025 Diabetes: Estimated Glomerular Filtration Rate for Kidney Health Diabetes: Estimated Glomerular Filtration Rate for Kidney Health [facility] Start: 07-31-2025 End: 01-07-2026 Right eye Photo documentation FUNDUS PHOTOS OD (RIGHT EYE) [facility] Imaging Routine Postoperative eye state 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, right eye Subluxation of right lens Expected: 07/31/2025, Expires: 01/07/2026 [facility] Work Phone: Comment on above: Expected: 07/31/2025, Expires: Start: 07-07-2025 Diabetes: Estimated Glomerular Filtration Rate for Kidney Health Diabetes: Estimated Glomerular Filtration Rate for Kidney Health [facility] Start: 06-24-2025 DIABETES SCREEN DIABETES SCREEN [facility] Start: 06-10-2025 Thyroid stimulating hormone measurement TSH Level [facility] Start: 05-18-2025 DIABETES SCREEN DIABETES SCREEN [facility] Start: 03-18-2025 Influenza vaccination [facility] Start: 03-15-2025 End: 03-15-2025 Patient encounter procedure 03/15/2025 11:15 AM EDT Office Visit [facility] [place] [address] [place] [id number] Andre Patel MD [address] [place] [address] [facility] Start: 01-02-2025 End: 01-02-2025 Patient encounter procedure 01/02/2025 9:45 AM EDT Office Visit [facility] [address] [place] [address] Savana Lopez MD [address] [place] [address] *3 M, DFE Ophthalmology Comment on above: *3 M, DFE Start: 12-24-2024 End: 12-24-2024 Patient encounter procedure 12/24/2024 2:30 PM EDT Office Visit [facility] [place] [address] [place] [phone] [place] [address] [facility] [place] Start: 12-05-2024 End: 12-05-2024 Patient encounter procedure 12/05/2024 10:00 AM EDT Office Visit [facility] [place] [address] [place] [phone] Kristyn Hilario MD [address] [place] [address] [facility] [place] Start: 11-22-2024 End: 11-22-2024 Admission to same day surgery center 11/22/2024 9:30 AM EDT - 11/22/2024 11:30 AM EDT Surgery [facility] MAIN OR [address] [place] [address] Kristyn Hilario MD [address] [place] [address] AORTOILIAC ANGIOGRAPHY, RIGHT LOWER EXTREMITY ANGIOGRAPHY WITH RUNOFF, POSSIBLE SUPERFICIAL FEMORAL ARTERY/POPLITEAL/TIBIAL ANGIOPLASTY/STENTING [96878 (CPT )] [facility] MAIN OR Comment on above: AORTOILIAC ANGIOGRAPHY, RIGHT LOWER EXTR EMITY ANGIOGRAPHY WITH RUNOFF, POSSIBLE SUPERFICIAL FEMORAL ARTERY/POPLITEAL/TIBIAL ANGIOPLASTY/STENTING [81403 (CPT )] Start: 11-22-2024 End: 11-22-2024 Angiography extremity unilateral rs&i ANGIOGRAM, EXTREMITY Skin ulcer of right great toe (HCC) Critical limb ischemia of right lower extremity (HCC) 11/22/2024 9:30 AM EDT [facility] Operating Room Start: 11-22-2024 Subsequent hospital visit by physician 11/22/2024 9:30 AM EDT Hospital Encounter [facility] MAIN OR [address] [place] [address] Kristyn Hilario MD [address] [place] [phone] [facility] MAIN OR Start: 11-20-2024 Subsequent hospital visit by physician 11/20/2024 Hospital Encounter [facility] OR [address] [facility] [place] [address] Kristyn Hilario MD [address] [place] [phone] [facility] MAIN OR Start: 11-13-2024 End: 11-13-2025 Basic metabolic 1998 panel - Serum or Plasma Basic metabolic panel Lab Routine Pre-op evaluation Expected: 11/13/2024 (Approximate), Expires: 11/13/2025 [facility] Comment on above: Expected: 11/13/2024 (Approximate), Expi res: 11/13/2025 Start: 11-13-2024 End: 11-13-2025 CBC W Auto Differential panel - Blood CBC auto differential Lab Routine Pre-op evaluation Expected: 11/13/2024 (Approximate), Expires: 11/13/2025 [facility] Work Phone: Comment on above: Expected: 11/13/2024 (Approximate), Expi res: 11/13/2025 Start: 10-01-2024 End: 10-01-2024 Patient encounter procedure 10/01/2024 10:30 AM EDT Office Visit [facility] [address] [address] Savana Lopez MD [address] [place] [address] 26 Day F/U ~ DFE OD bscan OD . Ophthalmology Comment on above: 26 Day F/U ~ DFE OD bscan OD . Start: 08-22-2024 End: 08-22-2024 Patient encounter procedure 08/22/2024 10:30 AM EST Office Visit [facility] [place] [address] [place] [phone] Henok Santizo PA-C [address] [place] [address] [facility] [place] Start: 08-15-2024 End: 08-15-2024 Patient encounter procedure 08/15/2024 9:45 AM EST Office Visit [facility] [address] [place] [address] Savana Lopez MD [address] [place] [address] *1 month post op Ophthalmology Comment on above: *1 month post op Start: 08-06-2024 End: 08-06-2024 Patient encounter procedure 08/06/2024 11:00 AM EST Office Visit [facility] [place] [address] [place] [phone] Henok Santizo PA-C [address] [place] [phone] [facility] [place] Start: 08-01-2024 End: 08-01-2024 Patient encounter procedure Ophthalmology Comment on above: *1 week post op Start: 07-31-2024 End: 07-31-2024 Patient encounter procedure [facility] Start: 07-27-2024 End: 07-27-2024 Admission to same day surgery center 07/27/2024 10:50 AM EST - 07/27/2024 12:40 PM EST Surgery Ophthalmology [address] [address] Savana Lopez MD [address] [place] [address] VITRECTOMY 25G MEC PARS PLANA APPROACH W/ REMOVAL OF PRERETINAL CELLULAR MEMBRANE Ophthalmology Comment on above: VITRECTOMY 25G MECH PARS PLANA APPROACH W/ REMOVAL OF PRERETINAL CELLULAR MEMBRANE Start: 07-27-2024 End: 07-27-2024 Aspiration/release vitreous subretinal/choroidal RELEASE OF VITREOUS, CHOROIDAL FLUID, PARS PLANA APPROACH Hemorrhagic choroidal detachment of right eye 07/27/2024 10:50 AM EST [facility] Start: 07-27-2024 Subsequent hospital visit by physician 07/27/2024 10:50 AM EST Hospital Encounter Ophthalmology [address] [address] Savana Lopez MD [address] [place] [address] 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] Ophthalmology Comment on above: Hemorrhagic choroidal detachment of righ t eye [H31.411] Start: 07-27-2024 End: 07-27-2024 Vitrectomy pars plana remove preretinal membrane VITRECTOMY 25G [facility] PARS PLANA APPROACH W/ REMOVAL OF PRERETINAL CELLULAR MEMBRANE Hemorrhagic choroidal detachment of right eye 07/27/2024 10:50 AM EST [facility] Start: 07-23-2024 End: 07-23-2024 Patient encounter procedure 07/23/2024 10:45 AM EST Office Visit [facility] [address] [address] Savana Lopez MD [address] [place] [address] *1 W, DFE OD/BSCAN OD/OPTOS OD Ophthalmology Comment on above: *1 W, DFE OD/BSCAN OD/OPTOS OD Start: 07-18-2024 Advance Directive Discussion Advance Directive Discussion [facility] Start: 07-18-2024 Medicare Advantage Annual Wellness Visit Medicare Advantage Annual Wellness Visit [facility] [employer] Start: 07-16-2024 End: 07-16-2024 Patient encounter procedure [...] 07/13/2024 2:04 PM EST [facility] Start: 07-13-2024 End: 07-13-2024 Evaluation and management of inpatient 07/13/2024 2:04 PM EST - 07/13/2024 3:24 PM EST Surgery Ophthalmology [address] [address] Savana Lopez MD [address] [place] [address] ASPIRATION VITREOUS, CHOROIDAL FLUID, PARS PLANA APPROACH Ophthalmology Comment on above: ASPIRATION VITREOUS, CHOROIDAL FLUID, PA RS PLANA APPROACH Start: 06-04-2024 End: 05-21-2025 POCT Prothrombin Time INR ([facility]) POCT Prothrombin Time INR ([facility]) Lab Routine Atrial fibrillation, unspecified type (HCC) Acute venous embolism and thrombosis of deep vessels of proximal end of right lower extremity (HCC) Expected: 06/04/2024, Expires: 05/21/2025 [facility] [employer] Work Phone: Comment on above: Expected: 06/04/2024, Expires: Start: 06-04-2024 End: 06-04-2024 Anticoagulant drug monitoring 06/04/2024 1:15 AM EST Anticoagulation - Warfarin Visit [facility] [address] [place] [phone] [facility] Start: 05-22-2024 End: 05-22-2024 Patient encounter procedure 05/22/2024 3:00 PM EST Office Visit [facility] [address] [facility] [address] [place] [phone] Hermila Padilla MD [address] [facility] [address] [place], [place] [phone] [facility] Start: 05-22-2024 End: 05-22-2024 Anticoagulant drug monitoring 05/22/2024 12:45 AM EST Anticoagulation - Warfarin Visit [facility] [address] [phone] [facility] Start: 05-14-2024 End: 05-14-2024 Patient encounter procedure 05/14/2024 2:00 PM EDT Appointment [facility] Non-Invasive Cardiology [address] [place] [phone] [facility] Non-Invasive Cardiology Start: 05-08-2024 End: 05-01-2025 POCT Prothrombin Time INR ([facility]) POCT Prothrombin Time INR ([facility]) Lab Routine Atrial fibrillation, unspecified type (HCC) Acute venous embolism and thrombosis of deep vessels of proximal end of right lower extremity (HCC) Expected: 05/08/2024 (Approximate), Expires: 05/01/2025 [facility] Work Phone: Comment on above: Expected: 05/08/2024 (Approximate), Expi res: 05/01/2025 Start: 05-08-2024 End: 05-08-2024 Anticoagulant drug monitoring 05/08/2024 1:30 AM EDT Anticoagulation - Other Visit [facility] [address] [phone] [facility] Start: 05-01-2024 End: 05-01-2024 Anticoagulant drug monitoring 05/01/2024 Anticoagulation - Warfarin Visit [facility] [address] [facility] [address] [place] [address] [facility] Start: 04-23-2024 End: 04-19-2025 POCT Prothrombin Time INR ([facility]) POCT Prothrombin Time INR ([facility]) Lab Routine Atrial fibrillation, unspecified type (HCC) Acute venous embolism and thrombosis of deep vessels of proximal end of right lower extremity (HCC) Expected: 04/23/2024 (Approximate), Expires: 04/19/2025 [facility] Work Phone: Comment on above: Expected: 04/23/2024 (Approximate), Expi res: 04/19/2025 Start: 04-23-2024 End: 04-23-2024 Patient encounter procedure 04/23/2024 9:15 AM EDT Office Visit [facility] [address] [place] [phone] Henok Hernandez PA-C [address] [place], [place] [phone] [facility] Start: 04-23-2024 End: 04-23-2024 Anticoagulant drug monitoring 04/23/2024 1:15 AM EDT Anticoagulation - Warfarin Visit [facility] [address] [place] [phone] [facility] Start: 04-19-2024 End: 04-19-2024 Anticoagulant drug monitoring 04/19/2024 1:00 AM EDT Anticoagulation - Warfarin Visit [facility] [address] [place] [phone] [facility] Start: 04-16-2024 End: 04-16-2025 POCT Prothrombin Time INR ([facility]) POCT Prothrombin Time INR ([facility]) Lab Routine Deep vein thrombosis (DVT) of lower extremity, unspecified chronicity, unspecified laterality, unspecified vein (HCC) Expected: 04/16/2024, Expires: 04/16/2025 [facility] [employer] Work Phone: Comment on above: Expected: 04/16/2024, Expires: Start: 03-18-2024 Covid-19 Vaccine ( season) Covid-19 Vaccine ( season) [facility] Start: 03-18-2024 Influenza vaccination Influenza Vaccine (#1) [facility] Start: 07-18-2023 Advance Directive Discussion Advance Directive Discussion [facility] Start: 07-18-2023 Medicare Advantage Annual Wellness Visit Medicare Advantage Annual Wellness Visit [facility] Start: 03-18-2023 Influenza vaccination Influenza Vaccine (#1) [facility] Start: 03-18-2022 Influenza vaccination INFLUENZA (#1) [facility] Start: 07-18-2021 ADVANCE DIRECTIVE DISCUSSION ADVANCE DIRECTIVE DISCUSSION [facility] Start: 07-18-2021 DEPRESSION ASSESSMENT DEPRESSION ASSESSMENT [facility] Start: 03-18-2020 Influenza vaccination Flu vaccine (#1) [place], [place] Start: 03-13-2020 End: 03-13-2020 Office Visit 03/13/2020 Office Visit Orthopedic Surgery Jayla Mcmahan MD [address] [facility] [address] [place] [address] [phone] [facility] [place] Start: 03-07-2020 Hospital Encounter 03/07/2020 Hospital Encounter IP Unit Jayla Mcmahan MD [address] [facility] [address] [place], [place] [phone] [facility] Dept Start: 03-06-2020 Annual Wellness Visit (AWV) Annual Wellness Visit (AWV) [place], [place] Start: 04-12-2019 Pneumococcal Vaccine: 50+ Years (2 of 2 - PPSV23) Pneumococcal Vaccine: 50+ Years (2 of 2 - PPSV23) [facility] Start: 04-12-2019 Pneumococcal Vaccine: 65+ Years (2 - PPSV23 if available, else PCV20) Pneumococcal Vaccine: 65+ Years (2 - PPSV23 if available, else PCV20) [facility] Start: 04-12-2019 Pneumococcal Vaccine: 65+ Years (2 - PPSV23 or PCV20) Pneumococcal Vaccine: 65+ Years (2 - PPSV23 or PCV20) [facility] Start: 04-12-2019 Pneumococcal Vaccine: 65+ Years (2 of 2 - PPSV23 or PCV20) Pneumococcal Vaccine: 65+ Years (2 of 2 - PPSV23 or PCV20) [facility] Start: 02-13-2016 DIABETES SCREEN DIABETES SCREEN [facility] Start: 09-24-2014 RSV Immunization for Adults (1 - 1-dose 75+ series) RSV Immunization for Adults (1 - 1-dose 75+ series) [facility] Start: 04-23-2010 DIABETES SCREEN DIABETES SCREEN [facility] Start: 09-24-2004 BONE DENSITY BONE DENSITY [facility] Start: 09-24-2004 Pneumococcal 65+ years Vaccine (2 of 2 - PPSV23) Pneumococcal 65+ years Vaccine (2 of 2 - PPSV23) [place] Start: 09-24-2004 PNEUMOCOCCAL: 65+ (1 - PCV) PNEUMOCOCCAL: 65+ (1 - PCV) [facility] Start: 09-24-2004 Screening for osteoporosis Bone Density Screening [facility] Start: 1999 RSV Immunization aged 60 or older (1 - 1-dose 60+ series) RSV Immunization aged 60 or older (1 - 1-dose 60+ series) [facility] Start: 09-24-1994 Screening for osteoporosis DEXA (modify frequency per FRAX score) [place] Start: 09-24-1989 Shingles Vaccine (1 of 2) Shingles Vaccine (1 of 2) [place] Start: 09-24-1989 SHINGRIX VACCINE (1 of 2) SHINGRIX VACCINE (1 of 2) [facility] Start: 09-24-1989 Zoster Vaccines (1 of 2) Zoster Vaccines (1 of 2) [facility] Start: 09-24-1958 Urine microalbumin profile DTAP,TDAP,TD (1 - Tdap) [facility] Start: 09-24-1958 Zoster Vaccines (1 of 2) Zoster Vaccines (1 of 2) [facility] Start: 09-24-1957 Anxiety Screening Anxiety Screening [facility] Start: 09-24-1957 Depression Screening Depression Screening [facility] Start: 09-24-1957 Diabetes: Urine Albumin-Creatinine Ratio for Kidney Health Diabetes: Urine Albumin-Creatinine Ratio for Kidney Health [facility] Start: 09-24-1957 SPIROMETRY SPIROMETRY [facility] Start: 1951 Depression Monitoring Depression Monitoring [facility] Start: 1951 Depresssion Monitoring Depresssion Monitoring [facility] Start: 09-24-1945 PNEUMOCOCCAL: 65+ (1 - PCV) PNEUMOCOCCAL: 65+ (1 - PCV) [facility] Start: 09-24-1944 COVID-19 Vaccine (#1) COVID-19 Vaccine (#1) [facility] Start: 03-27-1940 COVID-19 VACCINE (#1) COVID-19 VACCINE (#1) [facility] Start: 1939 Creatinine measurement Creatinine monitoring [facility] [place] Start: 1939 Lipid panel Lipid Panel [facility] Start: 1939 Medicare Advantage Annual Wellness Visit (AWV) Medicare Advantage Annual Wellness Visit (AWV) [facility] Start: 1939 Potassium monitoring Potassium monitoring [facility] [place], [place] Start: 1939 Screening for osteoporosis Bone Density Scan [facility] Start: 1939 Thyroid stimulating hormone measurement TSH Level [facility] Angiography extremit y unilateral rs&i AORTOGRAM, WITH SERIALOGRAPHY Critical limb ischemia of right lower extremity (HCC) [facility] Operating Room Aortography abdomina l serialography rs&i AORTOGRAM, WITH SERIALOGRAPHY Critical limb ischemia of right lower extremity (HCC) [facility] Operating Room BSCAN OD (RIGHT EYE) BSCAN OD (R IGHT EYE) [facility] Imaging Routine Hemorrhagic choroidal detachment of right eye 07/09/2024 9:09 AM EST [facility] Work Phone: End: 01-03-2026 BSCAN OD (RIGHT EYE) BSCAN OD (RIGHT EYE) [facility] Imaging Routine Hemorrhagic choroidal detachment of right eye Dislocation of intraocular lens, initial encounter 1 Occurrences starting 07/12/2024 until 01/03/2026 [facility] Work Phone: Comment on above: 1 Occurrences starting 07/12/2024 until 01/03/2026 End: 01-07-2026 BSCAN OD (RIGHT EYE) BSCAN OD (RIGHT EYE) [facility] Imaging Routine Postoperative eye state 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, right eye Subluxation of right lens 1 Occurrences starting 07/16/2024 until 01/07/2026 [facility] Comment on above: 1 Occurrences starting 07/16/2024 until 01/07/2026 End: 08-13-2026 BSCAN OD (RIGHT EYE) BSCAN OD (RIGHT EYE) [facility] Imaging Routine Postoperative eye state 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, right eye Subluxation of right lens 1 Occurrences starting 09/05/2024 until 02/27/2026 [facility] Work Phone: Comment on above: 1 Occurrences starting 09/05/2024 until 02/27/2026 Camera fundoscopy FUNDUS PHOTOS OU (BOTH EYES) [facility] Imaging Routine Hemorrhagic choroidal detachment of right eye 07/09/2024 8:35 AM EST [facility] End: 03-08-2023 CT Neck W contrast IV [employer] Work Phone: Comment on above: Once for 1 Occurrences starting 03/08/20 until 03/08/2023 Incision/Drainage Incision/Drain age Procedures Routine 02/08/2020 7:17 PM EDT [email or web address] OUTSIDE PROCEDURE SCAN OUTSIDE P ROCEDURE SCAN Procedures Ordered: 02/21/2023 [employer] Comment on above: Ordered: 02/21/2023 OUTSIDE PROCEDURE SCAN OUTSIDE P ROCEDURE SCAN Procedures Ordered: 03/07/2023 [employer] Comment on above: Ordered: 03/07/2023 OUTSIDE PROCEDURE SCAN OUTSIDE P ROCEDURE SCAN Procedures Ordered: 05/24/2023 [employer] Comment on above: Ordered: 05/24/2023 OUTSIDE PROCEDURE SCAN OUTSIDE P ROCEDURE SCAN Procedures Ordered: 06/14/2023 [employer] Comment on above: Ordered: 06/14/2023 Oxygen therapy [Minimum Data Set] Initiate Oxygen Therapy Protocol Respiratory Care Routine Daily until discontinued starting 03/07/2020 [email or web address] Comment on above: Daily until discontinued starting 2019 End: 02-22-2023 US Head and neck soft tissue [employer] Work Phone: Comment on above: Once for 1 Occurrences starting 02/23/20 until 02/22/2023 End: 03-06-2020 XR FINGER RIGHT (MIN 2 VIEWS) XR FINGER RIGHT (MIN 2 VIEWS) Imaging Routine Once for 1 Occurrences starting 03/06/2020 until 03/06/2020 [email or web address] Comment on above: Once for 1 Occurrences starting 03/06/20 until 03/06/2020 XR FINGER RIGHT (MIN 2 VIEWS) XR FINGER RIGHT (MIN 2 VIEWS) Imaging Routine 03/06/2020 10:20 AM EDT [facility] Immunizations Immunization Date Immunization Notes Care Provider Fa ramin 05-19-2021 Influenza, High-dose Seasonal, Quadrivalent, Preservative Free Ming Weinberg MD Work Phone: [employer] 05-19-2021 influenza virus vaccine, unspecified formulation Jared Evans MD Work Phone: [employer] 02-15-2019 pneumococcal conjuga te vaccine, 13 valent Ming Weinberg MD Work Phone: [employer] 02-15-2019 tetanus toxoid, redu larissa diphtheria toxoid, and acellular pertussis vaccine, adsorbed Ming Weinberg MD Work Phone: [employer] 06-29-2013 influenza, high dose seasonal, preservative-free Ming Weinberg MD Work Phone: [employer] NEGATED: Highlighted row has not occurred!04-05-2024 Seasonal trivalent influenza vaccine, adjuvanted, preservative free Winifred Cornell DO Work Phone: [employer] Comment on above: Deferred: Patient Re fused Payers Date Payer Category Payer Self-pay 2023 Private Health Insurance HUMANA HUMANA MEDICARE SUPPLEMENT [id number] 2023-[id number] [place] [id number] Commercial [id number] 2017 Medicare [id number] 2017 Medicare (Managed Care) NADEGE ESCOBAR [id number] 2017 Medicare HMO HUMANA MEDICARE [id number] 2017 Medicare [id number]. [id number] 1939 Unknown [id number] 2.16840.1.946985.3.579. 2.594 Unknown [id number]. 1.13.159. 2.7.3.975090.315 Unknown [id number] Unknown [id number] 2.16840.1.227993.3.579. 2.462 Unknown [id number] 2.16840.1.953088.3.579. 2.462 Unknown [id number] 2.16.840.1.832771.3.579. 2.462 Unknown [id number] 2.16.840.1.282161.3.579. 2.462 Unknown [id number] 2.16.840.1.955079.3.579. 2.462 Unknown [id number] 2.16840.1.628005.3.579. 2.462 Unknown [id number] 2.16.840.1.563585.3.579. 2.462 Unknown [id number] 2.16.840.1.605309.3.579. 2.462 Unknown [id number] 2.16.840.1.156484.3.579. 2.462 Unknown [id number] 2.16.840.1.709309.3.579. 2.462 Unknown [id number] 2.16.840.1.832310.3.579. 2.462 Unknown [id number] 2.16.840.1.413541.3.579. 2.462 Unknown [id number] 2.16.840.1.342621.3.579. 2.462 Unknown [id number] 2.16.840.1.980058.3.579. 2.462 Unknown [id number] 2.16.840.1.462729.3.579. 2.462 Unknown [id number] 2.16.840.1.492775.3.579. 2.462 Unknown [id number] 2.16.840.1.130933.3.579. 2.462 Unknown [id number] 2.16.840.1.464788.3.579. 2.462 Unknown [id number] 2.16.840.1.845109.3.579. 2.462 Unknown [id number] 2.16840.1.352758.3.579. 2.462 Unknown [id number] 2.16840.1.224407.3.579. 2.462 Unknown [id number] 2.16840.1.137438.3.579. 2.462 Social History Date Type Detail Facility Start: 02-08-2020 [facility] [place] Start: 02-08-2020 End: 04-20-2024 Alcohol intake Current drinker of alcohol (finding) [place] Start: 02-08-2020 End: 05-22-2024 Alcohol Comment occ [facility] Start: 1940 Sex Assigned At [facility] on file [facility] Start: 05-04-2022 End: 03-08-2023 Exposure to SARS-CoV-2 (event) [facility] sure [facility] Start: 03-06-2020 End: 04-25-2024 Tobacco smoking status NHIS [facility] Start: 03-06-2020 End: 04-25-2024 Tobacco use and exposure Never used [facility] Tobacco smoking stat us [facility] Tobacco smoking consumption unknown [facility] Start: 05-17-2022 End: 04-04-2024 Tobacco smoking status MDIS Smokes tobacco daily [facility] History of tobacco use Cigarette Smoker C [facility] Start: 05-17-2022 End: 08-11-2024 Cigarettes smoked current (pack per day) - Reported 0.5 [facility] Start: 05-18-2022 History SDOH Financial 5 [facility] Start: 05-18-2022 History SDOH Food Worry 1 [facility] Start: 05-18-2022 History SDOH Transpo rt Med 2 [facility] Start: 07-05-2022 End: 12-05-2024 Alcohol intake Ex-drinker (finding) [facility] History of tobacco use Current smoker [facility] Start: 07-27-2023 End: 08-11-2024 Gender identity Not on file [facility] [employer] How often do you nee d to have someone help you when you read instructions, pamphlets, or other written material from your doctor or pharmacy [SILS] Never [facility] [employer] Has the [employer], or [employer] threatened to shut off services in your home in past 12Mo No [employer] Are you now , , , , never or living with a partner? [facility] How often to you hav e a drink containing alcohol? Monthly or less [employer] [facility] How often do you hav e 6 or more drinks on 1 occasion? Never [facility] How hard is it for y ou to pay for the very basics like food, housing, medical care, and heating Not very hard [facility] Do you feel stress - tense, restless, nervous, or anxious, or unable to sleep at night because your mind is troubled all the time - these days [OSQ] Not at all [facility] [facility] [employer] (I/We) worried wheth er (my/our) food would run out before (I/we) got money to buy more. Never true [facility] Start: 02-15-2022 End: 10-25-2024 Sex Female (finding) [facility] Start: 1940 Sex assigned at Female [facility] Start: 08-03-2024 Gender identity Identifies as female gender (finding) [facility] Start: 08-03-2024 Sexual orientation Heterosexual (fin mario) [facility] NEGATED: Highlighted rowStart: NINF History of tobacco use Passive smoker [facility] Medical Equipment Procedure Code Equipment Code Equipment Origin al Text Equipment Identifier Dates Gas Ispan Constellation Intraocular Vision System [id number] - [id number] Start: 07-27-2024 Stent Vasc 6x40x 125 6f Zilver - Sna - [id number] Start: 11-22-2024 Stent Oliva [id number] 25 6f Zilver - Sna - [id number] Start: 11-22-2024 Functional Status Date Assessment Result Facility 07-18-2024 Are you deaf, or do you have serious difficulty hearing No 07/18/2024 12:17 PM Jaci Umana, RADHA No [facility] 07-18-2024 Are you blind, or do you have serious difficulty seeing, even when wearing glasses Yes 07/18/2024 12:17 PM Jaci Umana, RADHA Yes [facility] 07-18-2024 Do you have serious difficulty walking or climbing stairs Yes 07/18/2024 12:17 PM Jaci Umana, RADHA Yes [facility] 07-18-2024 Do you have difficul ty dressing or bathing Yes 07/18/2024 12:17 PM Jaci Umana, RADHA Yes [facility] 07-18-2024 Because of a physica l, mental, or emotional condition, do you have difficulty doing errands alone such as visiting a physician's office or shopping Yes 07/18/2024 12:17 PM Jaci Umana, RN Yes [facility] Mental Status Date Assessment Result Facility 07-18-2024 Because of a physica l, mental, or emotional condition, do you have serious difficulty concentrating, remembering, or making decisions No 07/18/2024 12:17 PM Jaci Umana, RN No [facility] Clinical Notes 05-14-2022 to 01-02-2025 Savana Lopez MD - 01/02/2025 9:45 AM Cindy Hilario MD - 12/24/2024 2:30 PM Cindy Hilario MD - 12/05/2024 10:00 AM EDTPost-Procedure Note [...] 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 documented in this encounter [facility] 01-02-2025 Note HNO ID: [id number] Author: SAVANA LOPEZ MD Service: ? 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 [facility] 12-24-2024 History of Present illness Narrative 12/24/2024 Mel Pop 1940 Chief Complaint Patient presents with Follow-up Discuss Arterial Duplex Right 12/13/24; 2nd follow up RLE angio, SFA/pop/tib angioplasty/stenting 11/22/24 ([facility] [phone]) Patient returns for post operative evaluation s/p [...] sooner should there be any concerns. 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 HYSTERECTOMY ORTHOPEDIC SURGERY THROMBECTOMY Right 04/06/2024 RLE mechanical thrombectomy (Krzysztof) VASCULAR SURGERY Right 11/22/2024 AORTOILIAC ANGIOGRAPHY, RIGHT LOWER EXTREMITY ANGIOGRAPHY WITH RUNOFF, SUPERFICIAL FEMORAL ARTERY, POPLITEAL,TIBIAL ANGIOPLASTY and STENTING (Krzysztof) VASCULAR SURGERY Left 11/22/2024 Left femoral angiography (Krzysztof) documented in this encounter [facility] 12-05-2024 History of Present illness Narrative [...] I reviewed the images with the patient's ezvrspms-hd-pjs who was present for today's visit as the patient is blind. Follow up after arterial duplex to discuss the results. 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 Groin site remains intact and LE distal pulses unchanged via assessment with doppler. Transportation called for machine operator hop picker [facility] 11-22-2024 Miscellaneous Notes POA called to bedside and discharge instructions reviewed. Groin site remains intact and LE distal pulses unchanged via assessment with doppler. Transportation called for machine operator hop picker POA given updated via phone call. [...] common femoral artery access site SURGEON: Kristyn Hilario MD ASSISTANTS: Mehreen Khanna MD (PGY-1) FINDINGS: [...] the patient as well as the patient's mypdvayr-es-dzc Fidel. They have elected to proceed. PROCEDURE [...] technique was used to place a 5 Georgian sheath. The Bentson wire was positioned in [...] catheter and the catheter removed. The 5 Georgian sheath was exchanged for a long 6 Georgian Ansell sheath which was positioned with its [...] sheath was exchanged for a short 6 Georgian sheath. A Vascade closure device was deployed [...] and significantly improved over preoperative examination. Kristyn Hilario MD Vascular Surgery documented in this encounter [facility] 11-22-2024 Procedure note POA given updated via phone call. Made aware of patient's orders to lay flat until 1325. Daughter in law stated that she will call care facility later to make arrangements for transportation back. [facility] 11-22-2024 Hospital Discharge instructions Mehreen Khanna [...] the office l documented in this encounter [facility] 11-22-2024 Nurse Note Patient arrived on unit. Name and date verified. Attached to monitors. Vital signs stable. [facility] 11-22-2024 Note [facility] 11-22-2024 Procedure note OPERATIVE REPORT [...] common femoral artery access site SURGEON: Kristyn Hilario MD ASSISTANTS: Mehreen Khanna MD (PGY-1) FINDINGS: [...] the patient as well as the patient's xrtmorgf-kk-nir Fidel. They have elected to proceed. PROCEDURE [...] technique was used to place a 5 Georgian sheath. The Bentson wire was positioned in [...] catheter and the catheter removed. The 5 Georgian sheath was exchanged for a long 6 Georgian Ansell sheath which was positioned with its [...] sheath was exchanged for a short 6 Georgian sheath. A Vascade closure device was deployed [...] and significantly improved over preoperative examination. Kristyn Hilario MD Vascular Surgery [facility] 11-22-2024 Attending History and physical note [...] reviewed. Creatinine 1.03. Source Note - Kristyn Hilario MD - 11/05/2024 3:30 PM EDT Vascular [...] with a walker with pT at her long-term facility. She is on Eliquis and statin. [...] 07/05/2024 [facility] EYE SURGERY Right 06/2024 x2, [facility] FINGER AMPUTATION Right 03/07/2020 right index [...] min Stress: Patient Unable To Answer (08/03/2024) [place] [employer]ational [employer] - Occupational Stress Questionnaire Feeling of Stress : Patient unable to answer Social Connections: Unknown (08/03/2024) Social Connection and Isolation Panel [NHANES] Frequency of Communication with Friends and Family: Patient unable to answer Frequency of Social Gatherings with Friends and Family: Patient unable to answer Attends Rastafari Services: Patient unable to answer Active Member of Clubs or Organizations: Patient unable to answer Attends Club or Organization Meetings: Never Marital Status: Patient unable to answer Recent Concern: Social Connections - Moderately Isolated (06/20/2024) Received from [facility] Social Connection and Isolation Panel [NHANES] Frequency of Communication with Friends and Family: More than three times a week Frequency of Social Gatherings with Friends and Family: Once a week Attends Rastafari Services: More than 4 times per year [...] like me to discuss this with her kcdnesle-sy-ikm Fidel Castillo. She states she is her POA. I have contacted Fidel via telephone and explained the above and the recommendations for angiography. She will speak with the patient and call the office to let us know how they would like to proceed. Kristyn Hilario MD Vascular Surgery [facility] Work Phone: 11-22-2024 Note [facility] 11-22-2024 History and physical note [...] reviewed. Creatinine 1.03. Source Note - Kristyn Hilario MD - 11/05/2024 3:30 PM EDT Vascular [...] with a walker with pT at her long-term facility. She is on Eliquis and statin. [...] 07/05/2024 [facility] EYE SURGERY Right 06/2024 x2, [facility] FINGER AMPUTATION Right 03/07/2020 right index [...] Resource Strain: Low Risk (06/20/2024) Received from [facility] Overall Financial Resource Strain (CARDIA) Difficulty [...] min Stress: Patient Unable To Answer (08/03/2024) [place] [employer] - Occupational Stress Questionnaire Feeling of Stress : Patient unable to answer Social Connections: Unknown (08/03/2024) Social Connection and Isolation Panel [NHANES] Frequency of Communication with Friends and Family: Patient unable to answer Frequency of Social Gatherings with Friends and Family: Patient unable to answer Attends Rastafari Services: Patient unable to answer Active Member of Clubs or Organizations: Patient unable to answer Attends Club or Organization Meetings: Never Marital Status: Patient unable to answer Recent Concern: Social Connections - Moderately Isolated (06/20/2024) Received from [facility] Social Connection and Isolation Panel [NHANES] Frequency of Communication with Friends and Family: More than three times a week Frequency of Social Gatherings with Friends and Family: Once a week Attends Rastafari Services: More than 4 times per year [...] like me to discuss this with her vmcrcdcs-kd-afo Fidel Castillo. She states she is her POA. I have contacted Fidel via telephone and explained the above and the recommendations for angiography. She will speak with the patient and call the office to let us know how they would like to proceed. Kristyn Hilario MD Vascular Surgery documented in this encounter [facility] 11-09-2024 Note Tried to reach patie nt to discuss business intelligence consultant her procedure. Mailbox full & unable to leave voicemail. [facility] 11-05-2024 History of Present illness [...] with a walker with pT at her long-term facility. She is on Eliquis and statin. [...] 07/05/2024 [facility] EYE SURGERY Right 06/2024 , [facility] FINGER AMPUTATION Right 03/07/2020 right index [...] Resource Strain: Low Risk (06/20/2024) Received from [facility] Overall Financial Resource Strain (CARDIA) Difficulty [...] min Stress: Patient Unable To Answer (08/03/2024) [place] [employer] - Occupational Stress Questionnaire Feeling of Stress : Patient unable to answer Social Connections: Unknown (08/03/2024) Social Connection and Isolation Panel [NHANES] Frequency of Communication with Friends and Family: Patient unable to answer Frequency of Social Gatherings with Friends and Family: Patient unable to answer Attends Rastafari Services: Patient unable to answer Active Member of Clubs or Organizations: Patient unable to answer Attends Club or Organization Meetings: Never Marital Status: Patient unable to answer Recent Concern: Social Connections - Moderately Isolated (06/20/2024) Received from [facility] Social Connection and Isolation Panel [NHANES] Frequency of Communication with Friends and Family: More than three times a week Frequency of Social Gatherings with Friends and Family: Once a week Attends Rastafari Services: More than 4 times per year [...] like me to discuss this with her vmvlumiu-op-jgt Fidel Castillo. She states she is her POA. I have contacted Fidel via telephone and explained the above and the recommendations for angiography. She will speak with the patient and call the office to let us know how they would like to proceed. Kristyn Hilario MD Vascular Surgery documented in this encounter [facility] 11-05-2024 Note [facility]24 Note Date of Procedure 10/01/2024. Salesperson Hearing Aids Information CATALINA Donovan CDOS 10/01/2024 10:58 AM [...] drops right eye documented in this encounter [facility] 10-01-2024 Note HNO ID: [id number] Author: SAVANA LOPEZ MD Service: ? Author [...] choroidals (not yet appositional) - Evaluated at [facility] 07/12/24 with intense nausea and multiple episodes [...] to HTN (SBP 199/99 at presentation to [place]) and anticoagulation that led to angle closure [...] agree with al (more content not included)... [facility] 10-01-2024 History of Present illness Narrative [...] 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 documented in this encounter [facility] 09-05-2024 Note HNO ID: [id number] Author: SAVANA LOPEZ MD Service: ? 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 [facility] 08-22-2024 History of Present illness Narrative [facility] Vascular Surgery Follow-up Office Visit CHIEF COMPLAINT: Chief Complaint Patient presents with Follow-up 3 month follow up, PAD check [facility] HISTORY OF PRESENT ILLNESS: Mel Pop is a 83 y.o. female who returns today for follow-up for peripheral artery disease and history of venous thrombectomy in 03/2024. She is s/p right venous thrombectomy last year with Dr. Hilario. She states her right leg is doing well. She denies any significant edema or heaviness. She is tolerating anticoagulation. She had PVR last year showing bilateral arterial disease. She states she is ambulating with walker with PT at [facility] without difficulty. She denies any [...] 07/05/2024 [facility] EYE SURGERY Right 06/2024 x2, [facility] FINGER AMPUTATION Right 03/07/2020 right index [...] Resource Strain: Low Risk (06/20/2024) Received from [facility] Overall Financial Resource Strain (CARDIA) Difficulty [...] min Stress: Patient Unable To Answer (08/03/2024) [place] [employer] - Occupational Stress Questionnaire Feeling of Stress : Patient unable to answer Social Connections: Unknown (08/03/2024) Social Connection and Isolation Panel [NHANES] Frequency of Communication with Friends and Family: Patient unable to answer Frequency of Social Gatherings with Friends and Family: Patient unable to answer Attends Rastafari Services: Patient unable to answer Active Member of Clubs or Organizations: Patient unable to answer Attends Club or Organization Meetings: Never Marital Status: Patient unable to answer Recent Concern: Social Connections - Moderately Isolated (06/20/2024) Received from [facility] Social Connection and Isolation Panel [NHANES] Frequency of Communication with Friends and Family: More than three times a week Frequency of Social Gatherings with Friends and Family: Once a week Attends Rastafari Services: More than 4 times per year [...] Follow-Up: prn . documented in this encounter [facility] 08-16-2024 Note [facility] 08-16-2024 Nurse Note Patient picked up for transfer to [facility] by stretcher. Report already called to GENET Garcia. [facility] 08-16-2024 Nurse Note Patient picked up for transfer to [facility] by stretchpj. Report already called to GENET Garcia. Telephone report called to GENET Garcia at [facility]. Bedside swallow completed. Pt passed and tolerated well tolerated well. documented in this encounter [facility] 08-16-2024 Nurse Note Telephone report called to GENET Garcia at [facility]. [facility] 08-16-2024 Note Formatting of this n ote might be different from the original. Arranged transport to [facility] via [employer] with pickup at 2pm. Notified snf of transport time via Careport message; reviewed time with RN, coating and embossing unit operator and TCC. Called pt's daughter to review discharge time., plan; she is agreeable. [facility] 08-16-2024 Note Formatting of this n ote might be different from the original. Arranged transport to [facility] via [employer] with pickup at 2pm. Notified snf of transport time via Careport message; reviewed time with RN, coating and embossing unit operator and TCC. Called pt's daughter to review discharge time., plan; she is agreeable. [facility] 08-16-2024 Miscellaneous Notes Arranged transport to [facility] via [employer] with pickup at 2pm. Notified snf of transport time via Careport message; reviewed time with RN, coating and embossing unit operator and TCC. Called pt's daughter to review discharge time., plan; she is agreeable. Patient Choice Patient Name: MEL POP Date of : 1940 All Providers Sent Referral Name: [facility] Phone: [phone] Address: [address] [place] [address] Name: [facility] Phone: [phone] Address: [address] [place] [address] [facility] Phone: [phone] Address: [address] [place] [id number] MAR & Discharge med list transmitted to [facility] via Careport per TCC request. Pt has auth to go to [facility]. Divine Stokes,[phone] was called, message left @DC. Care Team was messaged...place DC orders/MAR. Dar YOUNG RN complete HECTOR. LEATHER SOFTENER will arrange transport for this am. OIL BAY TECHNICIAN tasked to sebd DC orders/MAR. Problem: Knowledge [...] Progressing Authorization is pending with [employer]. Ref# [id number] to be DC'd to [facility]. Dtr Fidel Updated. CM to [...] Progressing Pt has Been accepted to [facility]. Need PT/OT to see so auth [...] Outcome: Progressing Referral placed to SNF- [facility] via [facility] per [facility] request. Await review and response regarding ability to accept. TCC notified. Electronically signed by Christine Morataya [facility], 08-13-2024 at 3:00 PM Called dgt to talk about dc planning. Dgt continues to tour SNFs this evening, since she was sick this weekend. Provided me with two more SNF choices. [facility]. Tasked [facility] to create these referrals. CM to [...] place, Dgt touring facilities over the weekend. [facility]. [facility] pending acceptance, [facility] Problem: Knowledge Deficit Goal: Patient/family/caregiver [...] Nutritional Intake Outcome: Progressing Referral placed to [facility] via [facility] per [facility] request. Await review and response regarding ability to accept. TCC notified. Electronically signed by Christine Morataya [facility], 08-10-2024 at 9:23AM Pt was to be DC to [facility]. Found out pt and dtr didn't want to return to [facility]. SNF was made aware. On adm spoke with Dtr Fidel, ok to return. Called Dtr this am, after speaking with pt and things that happened and didn't happen. Fidel requesting a referral to be made to [facility]. [facility] tasked to send. A SNF list was emailed to Fidel. [email or web address]. She will tour facilities over weekend. CM [...] and med list sent via Careport to [facility] per TCC request. Auth received. Patient with active dc orders. [facility] with estimated machine operator hop picker time of 1929. VM left with daughter Fidel along with 3N phone number to call with questions. Bedside RN aware. Facility updated. [facility] newspaper carriers supervisor sent orders to [facility]. manufacturing plant manager was asked to assist with setting up transport back to [facility] this evening. school attendance secretary had already done so, but this manager solar called daughter to inform her of discharge and transport set up. Daughter did not wish patient to return to the SNF. Tobacco Weigher told her that patient is medically stable for dc and that she should continue the discussion with the delinquency prevention social worker and internet systems administrator at The snf, and also get options from [employer]. Coordinator was to message the snf about return this evening via [employer] Updated PT/OT notes placed to SNF [facility] via Careport per TCC request. Await review and response regarding ability to accept. TCC notified. Electronically signed by [facility] Aracelis Gardiner Patient is medically ready for dc. PT/OT both continuing to recommend SNF. [facility] manager solar asked to start auth. Plan to dc back to [facility] pending auth I was off Yesterday, PT note was in from Tuesday. Therapy to see today was sent out to OT Tuesday to see yesterday. Pt was not seen. I did sent a therapy to see today to PT/OT so an auth can be started. Pt will Be Dc'd to [facility]. CM to follow. Problem: Knowledge Deficit [...] aspiration 2/2 vomiting. Discharge Plan: Return to [facility]. Therapy eval needed for precert. TCC [...] Plan is for pt to return to [facility]. Auth and HECTOR needed prior to DC. CM to follow. Per attending pt ready for DC. Pt will return to [facility]. Pt needs PT/OT to start [...] RN Outcome: Progressing Return referral placed to [facility] per TCC request. Await review and response regarding ability to accept. TCC notified. Pt to ED w N/V/Diarrhea, was Dx w Aspiration pneumonitis. Started on IV ATB's. Called pt's Dtr, Fidel, . Pt is from [facility]. Plan on returning. [facility] tasked to send a return referral. [...] Improved Outcome: Progressing documented in this encounter [facility] 08-16-2024 Note Formatting of this n ote might be different from the original. Patient Choice Patient Name: MEL POP Date of : 1940 All Providers Sent Referral Name: Mckenzie Adames [facility] Phone: [phone] Address: [address] [place] [address] Name: [facility] Phone: [phone] Address: [address] [place] [address] Name: [facility] Phone: [phone] Address: [address] [place] [address] [facility] 08-16-2024 Note Formatting of this n ote might be different from the original. Patient Choice Patient Name: MEL POP Date of : 1940 All Providers Sent Referral Name: [facility] Phone: [phone] Address: [address] [place] [address] Name: The [facility] ([facility] Phone: [phone] Address: [address] [place] [address] Name: [facility] Phone: [phone] Address: [address] [place] [address] [facility] 08-16-2024 Note Formatting of this n ote might be different from the original. MAR & Discharge med list transmitted to [facility] via [facility] per TCC request. [facility] 08-16-2024 Note Formatting of this n ote might be different from the original. MAR & Discharge med list transmitted to [facility] via [facility] per TCC request. [facility] 08-16-2024 Note Formatting of this n ote might be different from the original. Pt has auth to go to [facility]. Dtr Fidel,[phone] was called, message left @DC. Care Team was messaged...place DC orders/MAR. Dar YOUNG RN complete HECTOR. LEATHER SOFTENER will arrange transport for this am. [facility] tasked to sebd DC orders/MAR. [facility] 08-16-2024 Note Formatting of this n ote might be different from the original. Pt has auth to go to [facility]. Dtr Fidel,[phone] was called, message left @DC. Care Team was messaged...place DC orders/MAR. Dar YOUNG RN complete HECTOR. LEATHER SOFTENER will arrange transport for this am. [employer] tasked to sebd DC orders/MAR. [facility] Patterns 08-16-2024 History of Present illness Narrative Hospitalist Progress Note 08/16/2024 Subjective: Admit Date: 08/03/2024 PCP: Jared Evans MD Room#: [id number]/[id number] A BRIEF HOSPITAL COURSE: Mel is a 83 y.o. female with past medical history below who presents with chief complaint listed above.Patient is an 83 y/o female who presented to [place] ER early this AM from local MD for vomiting and diarrhea. Patient reported she [...] [facility] [employer] Hospitalist Progress Note 08/15/2024 Subjective: Admit Date: 08/03/2024 PCP: Jared Evasn MD Room#: N5548/N5-227 A BRIEF HOSPITAL COURSE: Mel is a 83 y.o. female with past medical history below who presents with chief complaint listed above.Patient is an 83 y/o female who presented to [place] ER early this AM from local MD for vomiting and diarrhea. Patient reported she [...] disease) ([facility]) Stroke (HCC) LABS: CBC: No [...] Escobar MD Division of Hospitalist Medicine Acute [facility] Images from the original note were not included. PHYSICAL THERAPY [facility] Treatment Note Name/MRN: Mel Pop ([id number]) Date of : 1940 Age: 83 y.o. 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 [...] Goal: keep getting up, get back to [place]. Encounter Problems Encounter Problems (Active) Balance Patient [...] Treatment Minutes: 19 Minutes (Gait) Oanh Grimes EDGE SANDER Cosigned by Samantha Lora, PT at 08/14/2024 3:14 PM EST Images from the original note were not included. OCCUPATIONAL THERAPY [facility] Treatment Note Name/MRN: Mel Pop ([id number]) Date of : 1940 Age: 83 y.o. [facility] Discharge Recommendation: Fpc Facility Prior Level of Function Prior Level [...] with 24/7 assist, home health OT and foreclosure home inspector. Pt. ( Who is totally BLIND), Would due better receiving therapy in her home due to familiar environment. If she can not get 24/7 assist at home then OT recommend SNF at [place]. Subjective Pt. Remains in her recliner eating [...] Date: 08/03/2024 PCP: Jared Evans MD Room#: [id number] A BRIEF HOSPITAL COURSE: Mel is a 83 y.o. female with past medical history below who presents with chief complaint listed above.Patient is an 83 y/o female who presented to [place] ER early this AM from local MD for vomiting and diarrhea. Patient reported she [...] Devika Escobar MD Division of Hospitalist Medicine [facility] Hospitalist Progress Note 08/13/2024 Subjective: Admit Date: 08/03/2024 PCP: Jared Evans MD Room#: [id number]/[id number] A BRIEF HOSPITAL COURSE: Mel is a 83 y.o. female with past medical history below who presents with chief complaint listed above.Patient is an 83 y/o female who presented to [place] ER early this AM from local MD for vomiting and diarrhea. Patient reported she [...] Kael Anderson DO Division of Hospitalist Medicine [facility] Nutrition Assessment Type and Reason for Visit: [...] No significant fluid accumulation (per flow sheets) Metal Mixer Strength: Not Performed Nutrition Assessment: 83 y.o. [...] On: Kcal/kg Weight Used for Energy Requirements: [place] Weight for Energy Calculation (kg): 54 kg Total Energy Requirements (kcals/day): 2483-9194 Weight Used for Protein Requirements: [place] Weight in Kg Used for Protein Requirements: [...] 160# 07/05) % Weight Change (Calculated): 12.2 [place] Body Weight (lbs) (Calculated): 119 lbs [place] Body Weight (Kg) (Calculated): 54 kg BMI [...] soon to determine Janki Fields RD Contact: *[phone] Hospitalist Progress Note 08/12/2024 Subjective: Admit Date: 08/03/2024 PCP: Jared Evans MD Room#: [id number]/[id number] A BRIEF HOSPITAL COURSE: Mel is a 83 y.o. female with past medical history below who presents with chief complaint listed above.Patient is an 83 y/o female who presented to [facility] early this AM from local MD for vomiting and diarrhea. Patient reported she [...] Anderson DO Division of Hospitalist Medicine Acute [facility] Hospitalist Progress Note 08/11/2024 Subjective: Admit Date: 08/03/2024 PCP: Jared Evans MD Room#: [id number]/[id number] A BRIEF HOSPITAL COURSE: Mel is a 83 y.o. female with past medical history below who presents with chief complaint listed above.Patient is an 83 y/o female who presented to [place] ER early this AM from local MD for vomiting and diarrhea. Patient reported she [...] Kael Anderson DO Division of Hospitalist Medicine [facility] Hospitalist Progress Note 08/10/2024 Subjective: Admit Date: 08/03/2024 PCP: Jared Evans MD Room#: [id number]/[id number] A BRIEF HOSPITAL COURSE: Mle is a 83 y.o. female with past medical history below who presents with chief complaint listed above.Patient is an 83 y/o female who presented to [place] ER early this AM from local MD for vomiting and diarrhea. Patient reported she [...] Kael Anderson DO Division of Hospitalist Medicine [facility] Hospitalist Progress Note 08/09/2024 Subjective: Admit Date: 08/03/2024 PCP: Jared Evans MD Room#: [id number]/[id number] A BRIEF HOSPITAL COURSE: Mel is a 83 y.o. female with past medical history below who presents with chief complaint listed above.Patient is an 83 y/o female who presented to [place] ER early this AM from local MD for vomiting and diarrhea. Patient reported she [...] Kael Anderson DO Division of Hospitalist Medicine [facility] Images from the original note were not included. OCCUPATIONAL THERAPY [facility] Initial Evaluation Name/MRN: Mel Pop ([id number]) Evaluation Date: 08/08/2024 Date of : 1940 Admission Date: 08/03/2024 2:22 AM Age: 83 y.o. 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 Goals and/or treatment plan was established in collaboration with patient/family/other representatives. Shannon Fernandez MS, OTR/L Images from the original note were not included. PHYSICAL THERAPY [facility] Treatment Note Name/MRN: Mel Pop ([id number]) Date of : 1940 Age: 83 y.o. Room/Bed: N548/N5548 A Discharge Recommendation: Fpc Facility Equipment Needed: (pt uses FWW EDGE SANDER) Prior Level of Function Prior Level of [...] Goal: keep getting up, get back to [place]. Encounter Problems Encounter Problems (Active) Balance Patient [...] Date: 08/03/2024 PCP: Jared Evans MD Room#: [id number]/[id number] A BRIEF HOSPITAL COURSE: Mel is a 83 y.o. female with past medical history below who presents with chief complaint listed above.Patient is an 83 y/o female who presented to [place] ER early this AM from local MD for vomiting and diarrhea. Patient reported she [...] Kael Anderson DO Division of Hospitalist Medicine [facility] Hospitalist Progress Note 08/07/2024 Subjective: Admit Date: 08/03/2024 PCP: Jared Evans MD Room#: N7-650/N4-991 A BRIEF HOSPITAL COURSE: Mel is a 83 y.o. female with past medical history below who presents with chief complaint listed above.Patient is an 83 y/o female who presented to [place] ER early this AM from local MD for vomiting and diarrhea. Patient reported she [...] 100 mL/hr, Last Rate: 100 mL/hr (08/06/24 4794) Assessment Data: Acute, acute on chronic, unstable/uncontrolled [...] Anderson DO Division of Hospitalist Medicine Acute [facility] Hospitalist Progress Note 08/06/2024 Subjective: Admit Date: 08/03/2024 PCP: Jared Evans MD Room#: N4-083/[id number] A BRIEF HOSPITAL COURSE: Mel is a 83 y.o. female with past medical history below who presents with chief complaint listed above.Patient is an 83 y/o female who presented to [place] ER early this AM from local MD for vomiting and diarrhea. Patient reported she [...] [facility]) LABS: CBC: Recent Labs 08/04/247 08/05/24 0358 08/05/24 2343 WBC 5.6 6.5 [...] MD Division of Hospitalist Medicine Acute care [facility] Images from the original note were not included. PHYSICAL THERAPY [facility] Initial Evaluation Name/MRN: Mel Pop ([id number]) Evaluation Date: 08/06/2024 Date of : 1940 Admission Date: 08/03/2024 2:22 AM Age: 83 y.o. [facility]/N5540 A Discharge Recommendation: Fpc Facility (pt from SNF at baseline) Equipment Needed: (pt uses [facility]WW EDGE SANDER) Assessment IMPRESSION: Pt's Vincent scoring has varied [...] to SNF-level care (pt was receiving PT EDGE SANDER) Admitting Diagnosis: aspiration pneumonitis, + Norovirus. 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 Goes to therapy and [...] Raw Score (No Stairs) : 15 [facility] Score: Walked 10 steps or more (i.e. [...] Goal: keep getting up, get back to [place]. Encounter Problems Encounter Problems (Active) Balance Patient [...] of Care supervision is transferred to a [facility] Therapy Services Physical Therapist. Goals and/or treatment plan was established in collaboration with patient/family/other representatives. Hospitalist Progress Note 08/05/2024 Subjective: Admit Date: 08/03/2024 PCP: Jared Evans MD Room#: [id number]/N5-503 A BRIEF HOSPITAL COURSE: Mel is a 83 y.o. female with past medical history below who presents with chief complaint listed above.Patient is an 83 y/o female who presented to [place] ER early this AM from local MD for vomiting and diarrhea. Patient reported she [...] CENTER) LABS: CBC: Recent Labs 08/03/24 0251 08/04/2444608/05/24 035 WBC 9.1 5.6 6.5 RBC 4.65 3.88 3.78* HGB 12.1 10.0* 9.9* HCT 38.7 33.0* 31.9* MCV 83.2 85.1 84.4 RDW 19.4* 19.3* 19.2* PLT 303 280 242 BMP: Recent Labs 08/03/24 1421 08/04/24 0447 08/05/24 035 NA 138 139 134* K 4.7 3.9 [...] 100 mL/hr, Last Rate: 100 mL/hr (08/05/24 9123) Assessment Data: NA (LOW: 2x CAT1 or [...] Information Primary Emergency Contact: José Miguel Castillo/ [employer] Relation: Mother Secondary Emergency Contact: Damaris Villafana DO NOT CALL-TERMINALLY ILL Mobile Relation: Friend Kayden Tatum MD Division of Hospitalist Medicine [facility] Images from the original note were not included. PHYSICAL THERAPY [facility] Name/MRN: Mel Pop ([id number]) Date: 08/05/2024 PT orders received per Vincent activity/mobility score. Patient currently with Vincent activity/mobility score greater than 2. Per therapy services guidelines, will discharge PT orders. Please place regular PT eval/treat orders if deemed appropriate. Padmaja Wilson PT Hospitalist Progress Note 08/04/2024 Subjective: Admit Date: 08/03/2024 PCP: Jared Evans MD Room#: N7-949/N7-060 A BRIEF HOSPITAL COURSE: Mel is a 83 y.o. female with past medical history below who presents with chief complaint listed above.Patient is an 83 y/o female who presented to [place] ER early this AM from local MD for vomiting and diarrhea. Patient reported she [...] MEDICAL CENTER) LABS: CBC: Recent Labs 08/03/24 02508/04/24 0447 [...] aKyden Tatum MD Division of Hospitalist Medicine [facility] documented in this encounter [facility] 08-15-2024 Plan of care note Problem: [...] My discharge needs are met Outcome: Progressing [facility] 08-15-2024 Note Formatting of this n ote might be different from the original. Authorization is pending with [employer]. Ref# [id number] to be DC'd to [facility]. Dtr Fidel Updated. CM to follow. [facility] 08-15-2024 Note Formatting of this n ote might be different from the original. Authorization is pending with [facility]. Ref# [id number] to be DC'd to [facility]. Dtr Fidel Updated. CM to follow. [facility] 08-15-2024 Note Patient progressing toward all goals. [facility] 08-15-2024 Plan of care note [...] Relation: Mother Secondary Emergency Contact: Damaris Villafana CALL-TERMINALLY ILL Mobile Relation: Friend Past Surgical [...] detachment Hyperglycemia Osteopenia of left femoral neck nursing home current use of anticoagulant therapy Seasonal allergies [...] assistance Toileting Total assistance Feeding Minimal assistance Blending Line Attendant Minimal assistance Med Delivery yes Wound Care [...] all that are sent with patient): Jaja RN SIGNATURE: MANAGEMENT/SOCIAL WORK SECTION Inpatient Status Date: 08/03/2024 Discharging to Facility/ Agency Name: [facility] Address: [address] [place] [address] Fax: Dialysis Facility (if applicable) Name: Address: Dialysis Schedule: Phone: Fax: Teacher Of The Sight Impaired/Commercial Roofing Estimator signature: ICIAN SECTION Name: Mel Pop Prognosis: good Condition at Discharge: stable Rehab Potential (if transferring to Rehab): good Recommended Labs or Other Treatments After Discharge: none The individual is being admitted to a nursing facility directly from an [facility] or a unit of a [facility] that is not operated by or licensed by [facility] under section 5119.14 or 5160-3-15.1 5 The individual requires the level of services provided by a nursing facility for the condition for which he or she was treated in the hospital and, Physician Certification: I certify the above information and transfer of Mel Pop is necessary for the continuing treatment of the diagnosis listed and that she requires long-term facility for less than 30 days. Update Admission H&P: No change in H&P PHYSICIAN SIGNATURE: documented in this encounter [facility] 08-14-2024 Note Formatting of this n ote might be different from the original. Pt has Been accepted to [facility]. Need PT/OT to see so auth to be started. Therapy to see today was sent. Called and spoke with Dtbraxton Verdin updates. SNF tasked w update. CM to follow. [facility] 08-14-2024 Note Formatting of this n ote might be different from the original. Pt has Been accepted to [facility]. Need PT/OT to see so auth to be started. Therapy to see today was sent. Called and spoke with braxton Cardozo. SNF tasked w update. CM to follow. [facility] 08-13-2024 Plan of care note Problem: [...] are met Outcome: Progressing [facility] 08-13-2024 Note Formatting of this n ote might be different from the original. Referral placed to [facility] via [facility] per TCC request. Await review and response regarding ability to accept. TCC notified. Electronically signed by Christine Morataya [facility], 08-13-2024 at 3:00 PM [facility] 08-13-2024 Note Formatting of this n ote might be different from the original. Referral placed to SNF[facility] per TCC request. Await review and response regarding ability to accept. TCC notified. Electronically signed by Christine Morataya [facility], 08-13-2024 at 3:00 PM [facility] 08-13-2024 Note Referral placed to [facility] via [facility] per TCC request. Await review and response regarding ability to accept. TCC notified. Electronically signed by Christine Morataya [facility], 08-13-2024 at 3:00 PM [facility] 08-13-2024 Note Formatting of this n ote might be different from the original. Called dgt to talk about dc planning. Dgt continues to tour SNFs this evening, since she was sick this weekend. Provided me with two more SNF choices. [facility]. Tasked [facility] to create these referrals. CM to follow. [facility] 08-13-2024 Note Formatting of this n ote might be different from the original. Called dgt to talk about dc planning. Dgt continues to tour SNFs this evening, since she was sick this weekend. Provided me with two more SNF choices. [facility] Tasked [employer]IL BAY TECHNICIAN to create these referrals. CM to follow. [facility] 08-13-2024 [...] are met Outcome: Progressing [facility] 08-12-2024 Note Problem: Knowledge D eficit Goal: Patient/family/caregiver demonstrates understanding of disease process, treatment plan, medications, and discharge instructions Outcome: Progressing [facility] 08-12-2024 Plan of care note Problem: Knowledge Deficit Goal: Patient/family/caregiver demonstrates understanding of disease process, treatment plan, medications, and discharge instructions Outcome: Progressing [facility] 08-12-2024 Plan of care note Problem: Knowledge [...] My discharge needs are met Outcome: Progressing [facility] [employer] 08-11-2024 Plan of care note Problem: Knowledge [...] My discharge needs are met Outcome: Progressing [facility] [employer] 08-11-2024 Note Formatting of this n ote might be different from the original. CM noted DC orders in place, Dgt touring facilities over the weekend. Moira. [facility] pending acceptance, updates sent via [facility]. [facility] [employer] 08-11-2024 Note Formatting of this n ote might be different from the original. CM noted DC orders in place, Dgt touring facilities over the weekend. [place]. [facility] pending acceptance, updates sent via [facility]. [facility] [employer] 08-11-2024 Plan of care note Problem: Knowledge [...] Interventions Goal: Assess Nutritional Intake Outcome: Progressing [facility] 08-10-2024 Note Formatting of this n ote might be different from the original. Referral placed to [facility] via [facility] per TCC request. Await review and response regarding ability to accept. TCC notified. Electronically signed by Christine Morataya [facility], 08-10-2024 at 9:23AM [facility] 08-10-2024 Note Formatting of this n ote might be different from the original. Referral placed to [facility] via [facility] per TCC request. Await review and response regarding ability to accept. TCC notified. Electronically signed by Christine Morataya [facility], 08-10-2024 at 9:23AM [facility] 08-10-2024 Note Referral placed to [facility] via [facility] per TCC request. Await review and response regarding ability to accept. TCC notified. Electronically signed by Christine Morataya [facility], 08-10-2024 at 9:23AM [facility] 08-10-2024 Note Formatting of this n ote might be different from the original. Pt was to be DC to [facility]. Found out pt and dtr didn't want to return to [facility]. SNF was made aware. On adm spoke with Dtr Fidel, ok to return. Called Dtr this am, after speaking with pt and things that happened and didn't happen. Fidel requesting a referral to be made to [facility]. [facility] tasked to send. A SNF list was emailed to [email or web address]. She will tour facilities over weekend. CM to follow. [facility] [employer] 08-10-2024 Note Formatting of this n ote might be different from the original. Pt was to be DC to [facility]. Found out pt and dtr didn't want to return to [facility]. SNF was made aware. On adm spoke with Dtr Fidel, ok to return. Called Dtr this am, after speaking with pt and things that happened and didn't happen. Fidel requesting a referral to be made to [facility]. [facility] tasked to send. A SNF list was emailed to Lisa. [email or web address]. She will tour facilities over weekend. CM to follow. [facility] [employer] 08-10-2024 Plan of care note Problem: Knowledge [...] Interventions Goal: Assess Nutritional Intake Outcome: Progressing [facility] [employer] 08-09-2024 Note Formatting of this n ote might be different from the original. Discharge summary and med list sent via Careport to [facility] per TCC request. [facility] 08-09-2024 Note Formatting of this n ote might be different from the original. Discharge summary and med list sent via Careport to [facility] per [facility] request. [facility] 08-09-2024 Note Discharge summary an d med list sent via Careport to [facility] per TCC request. [facility] 08-09-2024 Note Formatting of this n ote might be different from the original. Auth received. Patient with active dc orders. Transportation arranged through [employer] with estimated machine operator hop picker time of 1930. VM left with daughter Fidel along with 3N phone number to call with questions. Bedside RN aware. Facility updated. [facility] newspaper carriers supervisor sent orders to [facility]. [facility] 08-09-2024 Note Formatting of this n ote might be different from the original. Auth received. Patient with active dc orders. Transportation arranged through [employer] with estimated machine operator hop picker time of 1930. VM left with milady Stokes along with 3N phone number to call with questions. Bedside RN aware. Facility updated. [facility] newspaper carriers supervisor sent orders to [facility]. [facility] 08-09-2024 Note Formatting of this n ote might be different from the original. manufacturing plant manager was asked to assist with setting up transport back to [facility] this evening. school attendance secretary had already done so, but this manager solar called daughter to inform her of discharge and transport set up. Daughter did not wish patient to return to the SNF. Tobacco Weigher told her that patient is medically stable for dc and that she should continue the discussion with the delinquency prevention social worker and internet systems administrator at [facility], and also get options from [id number]. Coordinator was to message the snf about return this evening via CarePort. [facility] 08-09-2024 Note Formatting of this n ote might be different from the original. manufacturing plant manager was asked to assist with setting up transport back to [facility] this evening. school attendance secretary had already done so, but this manager solar called daughter to inform her of discharge and transport set up. Daughter did not wish patient to return to the SNF. Tobacco Weigher told her that patient is medically stable for dc and that she should continue the discussion with the delinquency prevention social worker and internet systems administrator at [facility], and also get options from [employer]. Coordinator was to message the snf about return this evening via [facility]. [facility] 08-09-2024 Note [facility] 08-09-2024 Hospital course Narrative Hospitalist [...] an 83 y/o female who presented to [place] ER early this AM from local MD for vomiting and diarrhea. Patient reported she [...] Ellipta 100-62.5-25 MCG/ACT aerosol powder Generic drug: Baipibsjcyv-Laqzlvmai-Cxezst STOP taking these medications enoxaparin 80 MG/0.8ML [...] Complexity: follow up within 7-14 calendar days (17038) [x] Severe Complexity: follow up within 7 calendar days (90145) Follow up Testing, Pending results or Referrals [...] Kael Anderson DO Division of Hospitalist Medicine [facility] 08/09/2024, 4:23 PM documented in this encounter [facility] 08-09-2024 Note Formatting of this n ote might be different from the original. Updated PT/OT notes placed to [facility] via Careport per TCC request. Await review and response regarding ability to accept. TCC notified. Electronically signed by [facility] Aracelis Gardiner [facility] 08-09-2024 Note Formatting of this n ote might be different from the original. Updated PT/OT notes placed to [facility] via Careport per TCC request. Await review and response regarding ability to accept. TCC notified. Electronically signed by [facility] Aracelis Gardiner [facility] [employer] 08-09-2024 Note Formatting of this n ote might be different from the original. Patient is medically ready for dc. PT/OT both continuing to recommend SNF. [facility] manager solar asked to start auth. Plan to dc back to [facility] pending auth [facility] 08-09-2024 Note Formatting of this n ote might be different from the original. Patient is medically ready for dc. PT/OT both continuing to recommend SNF. [facility] manager solar asked to start auth. Plan to dc back to [facility] pending auth [facility] 08-08-2024 Note Formatting of this n ote might be different from the original. I was off Yesterday, PT note was in from Tuesday. Therapy to see today was sent out to OT Tuesday to see yesterday. Pt was not seen. I did sent a therapy to see today to PT/OT so an auth can be started. Pt will Be Dc'd to [facility]. CM to follow. [facility] 08-08-2024 Note Formatting of this n ote might be different from the original. I was off Yesterday, PT note was in from Tuesday. Therapy to see today was sent out to OT Tuesday to see yesterday. Pt was not seen. I did sent a therapy to see today to PT/OT so an auth can be started. Pt will Be Dc'd to [facility]. CM to follow. [facility] 08-07-2024 Plan of care note Problem: Knowledge Deficit Goal: Patient/family/caregiver demonstrates understanding of disease process, treatment plan, medications, and discharge instructions Outcome: Progressing Problem: Potential for Compromised Skin Integrity Goal: Skin Integrity is Maintained or Improved Outcome: Progressing Goal: Nutritional status is improving Outcome: Progressing [facility] 08-07-2024 Plan of care note Problem: Knowledge [...] Interventions Goal: Assess Nutritional Intake Outcome: Progressing [facility] 08-07-2024 Note Formatting of this n ote might be different from the original. Case Management Progress Note: Patient remains on 5N for concern with aspiration 2/2 vomiting. Discharge Plan: Return to [facility]. Therapy eval needed for precert. TCC to assist and follow as needed. [facility] 08-07-2024 Note Formatting of this n ote might be different from the original. Case Management Progress Note: Patient remains on 5N for concern with aspiration 2/2 vomiting. Discharge Plan: Return to [facility]. Therapy eval needed for precert. TCC to assist and follow as needed. [facility] 08-07-2024 Plan of care note Problem: Knowledge [...] Interventions Goal: Assess Nutritional Intake Outcome: Progressing [facility] [employer] 08-06-2024 Plan of care note Problem: Knowledge [...] Interventions Goal: Assess Nutritional Intake Outcome: Progressing [facility] [employer] 08-06-2024 Note Formatting of this n ote might be different from the original. Pt cont's on IV AtBs'. Plan is for pt to return to [facility]. Auth and HECTOR needed prior to DC. CM to follow. [facility] [employer] 08-06-2024 Note Formatting of this n ote might be different from the original. Pt cont's on IV AtBs'. Plan is for pt to return to [facility]. Auth and HECTOR needed prior to DC. CM to follow. [facility] 08-06-2024 Note Formatting of this n ote might be different from the original. Per attending pt ready for DC. Pt will return to [facility]. Pt needs PT/OT to start auth Therapy to see put in for alistair so auth can be started. HECTOR will need completed. CM to follow. [facility] [employer] 08-06-2024 Note Formatting of this n ote might be different from the original. Per attending pt ready for DC. Pt will return to [facility]. Pt needs PT/OT to start auth Therapy to see put in for alistair so auth can be started. HECTOR will need completed. CM to follow. [employer] [facility] [employer] 08-06-2024 Consult note Associated Order (s): IP [...] assess Fluid Accumulation: No significant fluid accumulation Metal Mixer Strength: Not Performed Nutrition Assessment: Pt hx HTN, stroke, COPD, CKD, IBS. Admitted w/ vomiting and diarrhea. +norovirus. Started on abx for concern of aspiration pna. Pt's symptoms have improved during admission. Consuming and tolerating CLD. Medically stable for discharge back to SNF per notes. Estimated Daily Nutrient Needs: Energy Requirements Based On: Kcal/kg Weight Used for Energy Requirements: [place] Weight for Energy Calculation (kg): 54 kg Total Energy Requirements (kcals/day): 8777-0920 Weight Used for Protein Requirements: [place] Weight in Kg Used for Protein Requirements: [...] 160# 07/05) % Weight Change (Calculated): 12.2 [place] Body Weight (lbs) (Calculated): 119 lbs [place] Body Weight (Kg) (Calculated): 54 kg BMI [...] to determine Gabriella Michelle RD, LD Contact: [phone] [facility] 08-06-2024 Consult note Associated Order (s): IP [...] assess Fluid Accumulation: No significant fluid accumulation Metal Mixer Strength: Not Performed Nutrition Assessment: Pt hx HTN, stroke, COPD, CKD, IBS. Admitted w/ vomiting and diarrhea. +norovirus. Started on abx for concern of aspiration pna. Pt's symptoms have improved during admission. Consuming and tolerating CLD. Medically stable for discharge back to SNF per notes. Estimated Daily Nutrient Needs: Energy Requirements Based On: Kcal/kg Weight Used for Energy Requirements: [place] Weight for Energy Calculation (kg): 54 kg Total Energy Requirements (kcals/day): 9593-1166 Weight Used for Protein Requirements: [place] Weight in Kg Used for Protein Requirements: [...] 160# 07/05) % Weight Change (Calculated): 12.2 [place] Body Weight (lbs) (Calculated): 119 lbs [place] Body Weight (Kg) (Calculated): 54 kg BMI [...] Weight Discharge Planning: Too soon to determine Gabreilla Michelle RD, LD Contact: [phone] documented in this encounter [facility] 08-06-2024 Plan of care note Problem: Knowledge Deficit Goal: Patient/family/caregiver demonstrates understanding of disease process, treatment plan, medications, and discharge instructions Outcome: Progressing Problem: Potential for Compromised Skin Integrity Goal: Skin Integrity is Maintained or Improved Outcome: Progressing Goal: Nutritional status is improving Outcome: Progressing Problem: Urinary Incontinence Goal: Perineal skin integrity is maintained or improved Outcome: Progressing [facility] [employer] 08-05-2024 Plan of care note Problem: Knowledge Deficit Goal: Patient/family/caregiver demonstrates understanding of disease process, treatment plan, medications, and discharge instructions Outcome: Progressing Problem: Potential for Compromised Skin Integrity Goal: Skin Integrity is Maintained or Improved Outcome: Progressing Goal: Nutritional status is improving Outcome: Progressing Problem: Urinary Incontinence Goal: Perineal skin integrity is maintained or improved Outcome: Progressing [facility] [employer] 08-04-2024 Plan of care note Problem: Knowledge Deficit Goal: Patient/family/caregiver demonstrates understanding of disease process, treatment plan, medications, and discharge instructions Outcome: Progressing Problem: Potential for Compromised Skin Integrity Goal: Skin Integrity is Maintained or Improved Outcome: Progressing Goal: Nutritional status is improving Outcome: Progressing Problem: Urinary Incontinence Goal: Perineal skin integrity is maintained or improved Outcome: Progressing [facility] [employer] 08-04-2024 Nurse Note Bedside swallow completed. Pt passed and tolerated well tolerated well. [facility] [employer] 08-04-2024 Plan of care note Problem: Knowledge Deficit Goal: Patient/family/caregiver demonstrates understanding of disease process, treatment plan, medications, and discharge instructions Outcome: Progressing Problem: Potential for Compromised Skin Integrity Goal: Skin Integrity is Maintained or Improved Outcome: Progressing Goal: Nutritional status is improving Outcome: Progressing Problem: Urinary Incontinence Goal: Perineal skin integrity is maintained or improved Outcome: Progressing [facility] 08-03-2024 Plan [...] RN Outcome: Progressing [facility] 08-03-2024 Note Formatting of this n ote might be different from the original. Return referral placed to [facility] via Careport per TCC request. Await review and response regarding ability to accept. TCC notified. [facility] 08-03-2024 Note Formatting of this n ote might be different from the original. Return referral placed to [facility] via Careport per TCC request. Await review and response regarding ability to accept. TCC notified. [facility] 08-03-2024 Note Return referral plac ed to [facility] via Careport per TCC request. Await review and response regarding ability to accept. TCC notified. [facility] 08-03-2024 Note Formatting of this n ote might be different from the original. Pt to ED w N/V/Diarrhea, was Dx w Aspiration pneumonitis. Started on IV ATB's. Called pt's DtrFidel, . Pt is from [facility]. Plan on returning. [facility] tasked to send a return referral. [facility] 08-03-2024 Note Formatting of this n ote might be different from the original. Pt to ED w N/V/Diarrhea, was Dx w Aspiration pneumonitis. Started on IV ATB's. Called pt's Dtr, Fidel, . Pt is from [facility]. Plan on returning. [facility] tasked to send a return referral. [employer] [facility] [employer] 08-03-2024 History and physical note Attending History and Physical Admit Date: 08/03/2024 PCP: Jared Evans MD CHIEF COMPLAINT: vomiting/diarrhea Reason for Admission: aspiration pneumonitis History Obtained From: patient HISTORY OF PRESENT ILLNESS: Mel is a 83 y.o. female with past medical history below who presents with chief complaint listed above.Patient is an 83 y/o female who presented to [facility] early this AM from local MD for vomiting and diarrhea. Patient reported she [...] Resource Strain: Low Risk (06/20/2024) Received from [facility] Overall Financial Resource Strain (CARDIA) Difficulty [...] min Stress: Patient Unable To Answer (08/03/2024) [place] [employer] - Occupational Stress Questionnaire Feeling of Stress : Patient unable to answer Social Connections: Unknown (08/03/2024) Social Connection and Isolation Panel [NHANES] Frequency of Communication with Friends and Family: Patient unable to answer Frequency of Social Gatherings with Friends and Family: Patient unable to answer Attends Rastafari Services: Patient unable to answer Active Member [...] Friends and Family: Once a week Attends Rastafari Services: More than 4 times per year [...] mgmt was pursued: - inpatient admission to [facility] tele - check stool studies and [...] - DO NOT do CPR, intubation] [_] [DNR-CIRCULAR KNITTER HELPER - Comfort care only] [_] DNR form [...] Shivani Dimas PA-C Division of Hospitalist Medicine [facility] Cosigned by Abbi Long DO at 08/03/2024 [...] sounds present no guarding or regular rigidity Patterns Work Phone: 08-03-2024 Note [facility] 08-03-2024 History and physical note Attending History and Physical Admit Date: 08/03/2024 PCP: Jared Evans MD CHIEF COMPLAINT: vomiting/diarrhea Reason for Admission: aspiration pneumonitis History Obtained From: patient HISTORY OF PRESENT ILLNESS: Mel is a 83 y.o. female with past medical history below who presents with chief complaint listed above.Patient is an 83 y/o female who presented to [place] ER early this AM from local MD for vomiting and diarrhea. Patient reported she [...] Resource Strain: Low Risk (06/20/2024) Received from [facility] Overall Financial Resource Strain (CARDIA) Difficulty [...] min Stress: Patient Unable To Answer (08/03/2024) [place] [employer] - Occupational Stress Questionnaire Feeling of Stress : Patient unable to answer Social Connections: Unknown (08/03/2024) Social Connection and Isolation Panel [NHANES] Frequency of Communication with Friends and Family: Patient unable to answer Frequency of Social Gatherings with Friends and Family: Patient unable to answer Attends Rastafari Services: Patient unable to answer Active Member of Clubs or Organizations: Patient unable to answer Attends Club or Organization Meetings: Never Marital Status: Patient unable to answer Recent Concern: Social Connections - Moderately Isolated (06/20/2024) Received from [facility] Social Connection and Isolation Panel [NHANES] Frequency of Communication with Friends and Family: More than three times a week Frequency of Social Gatherings with Friends and Family: Once a week Attends Rastafari Services: More than 4 times per year [...] mgmt was pursued: - inpatient admission to [facility] tele - check stool studies and [...] - DO NOT do CPR, intubation] [_] [DNR-CIRCULAR KNITTER HELPER - Comfort care only] [_] DNR form [...] Shivani Dimas PA-C Division of Hospitalist Medicine [facility] Cosigned by Abbi Long DO at 08/03/2024 [...] or regular rigidity documented in this encounter [facility] [employer] 08-03-2024 Plan of care note Problem: Potential for Compromised Skin Integrity Goal: Skin Integrity is Maintained or Improved 08/03/2024 0842 by Lima Saenz RN Outcome: Progressing 08/03/2024 0842 by Lima Saenz RN Outcome: Progressing Problem: Potential for Compromised Skin Integrity Goal: Nutritional status is improving 08/03/2024 0842 by Lima Saenz RN Outcome: Progressing 08/03/2024 0842 by Lima Saenz RN Outcome: Progressing [facility] [employer] 08-03-2024 Plan of care note Problem: Knowledge Deficit Goal: Patient/family/caregiver demonstrates understanding of disease process, treatment plan, medications, and discharge instructions Outcome: Progressing Problem: Potential for Compromised Skin Integrity Goal: Skin Integrity is Maintained or Improved Outcome: Progressing [facility] [employer] 08-03-2024 Emergency department Note Pt placed in [facility]trip [facility] [employer] 08-03-2024 Emergency department Note Pt placed in [...] who presents to the emergency department from [facility] for acute onset nausea/vomiting/diarrhea x 3 episodes [...] minutes prior to ED transport for fpc. snf reports a second resident with similar symptoms earlier today. No known flu or COVID exposures. Patient denying other flu or COVID symptoms such as headache, myalgias, fevers, congestion, cough. Nursing Notes were reviewed. Limitations to history: None Outside historians: snf staff (Jabari) REVIEW OF SYSTEMS Review of [...] Resource Strain: Low Risk (06/20/2024) Received from [facility] Overall Financial Resource Strain (CARDIA) Difficulty of Paying Living Expenses: Not very hard Food Insecurity: No Food Insecurity (07/09/2024) Received from [facility] Hunger Vital Sign Worried About Running Out of Food in the Last Year: Never true Ran Out of Food in the Last Year: Never true Transportation Needs: No Transportation Needs (07/09/2024) Received from [facility] PRAPARE - Transportation Lack of Transportation (Medical): No Lack of Transportation (Non-Medical): No Physical Activity: Inactive (04/04/2024) Exercise Vital Sign Days of Exercise per Week: 0 days Minutes of Exercise per Session: 0 min Stress: No Stress Concern Present (06/19/2024) Received from [facility] [place] [employer] - Occupational Stress Questionnaire Feeling of Stress : Not at all Social Connections: Moderately Isolated (06/20/2024) Received from [facility] Social Connection and Isolation Panel [NHANES] Frequency of Communication with Friends and Family: More than three times a week Frequency of Social Gatherings with Friends and Family: Once a week Attends Rastafari Services: More than 4 times per year Active Member of Clubs or Organizations: No Attends Club or Organization Meetings: Never Marital Status: Intimate Partner Violence: Not At Risk (06/19/2024) Received from [facility] Domestic Abuse Assessment Do you feel safe in your relationships at home?: Yes Physical Abuse: Denies Verbal Abuse: Denies Housing Stability: Low Risk (07/09/2024) Received from [facility] Housing Stability Vital Sign Unable to [...] In compliance with this authorization, please visit www.fda.gov/media/853278/download or www.fda.gov/media/951194/download to access the applicable information sheets. LIPASE [...] who presents to the emergency department from [facility] for acute onset nausea/vomiting/diarrhea x 3 episodes [...] minutes prior to ED transport for fpc. snf reports a second resident with similar symptoms [...] baseline. Patient admitted to medical service at [facility] under Dr. Parrish. ED Medications managed: Medications [...] DO 08/03/24 0422 documented in this encounter [employer] 08-03-[address] and ED xray notified that patient is ready [facility] 08-03-2024 Physician Emergency department Note EMERGENCY DEPARTMENT [...] who presents to the emergency department from [facility] for acute onset nausea/vomiting/diarrhea x 3 episodes [...] minutes prior to ED transport for fpc. snf reports a second resident with similar symptoms earlier today. No known flu or COVID exposures. Patient denying other flu or COVID symptoms such as headache, myalgias, fevers, congestion, cough. Nursing Notes were reviewed. Limitations to history: None Outside historians: snf staff (Jabari) REVIEW OF SYSTEMS Review of [...] Resource Strain: Low Risk (06/20/2024) Received from [facility] Overall Financial Resource Strain (CARDIA) Difficulty of Paying Living Expenses: Not very hard Food Insecurity: No Food Insecurity (07/09/2024) Received from [facility] Hunger Vital Sign Worried About Running Out of Food in the Last Year: Never true Ran Out of Food in the Last Year: Never true Transportation Needs: No Transportation Needs (07/09/2024) Received from [facility] PRAPARE - Transportation Lack of Transportation (Medical): No Lack of Transportation (Non-Medical): No Physical Activity: Inactive (04/04/2024) Exercise Vital Sign Days of Exercise per Week: 0 days Minutes of Exercise per Session: 0 min Stress: No Stress Concern Present (06/19/2024) Received from [facility] [place] [employer] - Occupational Stress Questionnaire Feeling of Stress : Not at all Social Connections: Moderately Isolated (06/20/2024) Received from [facility] Social Connection and Isolation Panel [NHANES] Frequency of Communication with Friends and Family: More than three times a week Frequency of Social Gatherings with Friends and Family: Once a week Attends Rastafari Services: More than 4 times per year Active Member of Clubs or Organizations: No Attends Club or Organization Meetings: Never Marital Status: Intimate Partner Violence: Not At Risk (06/19/2024) Received from [facility] Domestic Abuse Assessment Do you feel safe in your relationships at home?: Yes Physical Abuse: Denies Verbal Abuse: Denies Housing Stability: Low Risk (07/09/2024) Received from [facility] Housing Stability Vital Sign Unable to [...] In compliance with this authorization, please visit www.fda.gov/media/307762/download or www.fda.gov/media/285267/download to access the applicable information sheets. LIPASE [...] who presents to the emergency department from [facility] for acute onset nausea/vomiting/diarrhea x 3 episodes [...] minutes prior to ED transport for fpc. snf reports a second resident with similar symptoms [...] baseline. Patient admitted to medical service at [facility] under Dr. Parrish. ED Medications managed: Medications [...] Mariana King DO 08/03/24 0422 [facility] 08-01-2024 Instructions Savana Lopez MD - 08/01/2024 1:06 PM EST - Continue Pred forte 4x / day right eye - Stop Cipro - Stop Brimonidine - Continue erythromycin antibiotic ointment as needed - Continue Atropine daily RIGHT eye - Continue Timolol 2x / day RIGHT EYE documented in this encounter [facility] 08-01-2024 Note HNO ID: [id number] Author: SAVANA LOPEZ MD Service: ? 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 documented in this encounter [facility] 07-30-2024 Note HNO ID: [id number] Author: JOHN PHELAN MD Service: ? Author [...] agree with all of its relevant components. [facility] 07-30-2024 Note HNO ID: [id number] Author: JOHN PHELAN MD Service: ? Author [...] agree with all of its relevant components. [facility] 07-27-2024 Instructions Nicolas Sahu MD - [...] day Ciprofloxacin (flores cap) 4x daily Atropine (registered veterinary technician) 1x daily Continue timolol (yellow cap) 2x [...] C Trouble breathing Contact Dr. Savana Lopez [phone] weekdays from 8am-5pm During non-business hours, please call [phone] or ext [phone] and ask for the eye doctor clinical information systems director. documented in this encounter [facility] 07-27-2024 Note HNO ID: [id number] Author: NICOLAS SAHU MD Service: ? Author [...] scheduled Nicolas Sahu MD Vitreoretinal Surgery Fellow [facility] 07-27-2024 History of Present illness Narrative [...] Vitreoretinal Surgery Fellow documented in this encounter [facility] 07-27-2024 Note HNO ID: [id number] Author: MIKHAIL NICHOLS APRN.RIDING COACH Service: ? Author Type: Nurse Railroad Operator Type: Anesthesia Procedure Notes Filed: 07/27/2024 11:25 Note Text: ANESTHESIOLOGY PROCEDURE NOTE Airway General Information Procedure Start Time/Medication Administration: 07/27/2024 11:21 AM Procedure End Time: 07/27/2024 11:24 AM Staffing Anesthesiologist: Robinson Brunner MD RIDING COACH: Mikhail Nichols APRN.RIDING COACH Performed by: anesthesiologist and RIDING COACH Indications and Patient Condition Indications for airway management: anesthesia Preoxygenated: yes Patient position: sniffing Method: asleep Final Airway Details Final airway type: supraglottic airway Number of attempts at approach: 1 Final Supraglottic Airway: LMA Classic Size 4 Seal Adequate: yes Failed airway: no Unrecognized esophageal intubation: no SIGNATURE: Mikhail Nichols APRN.RIDING COACH PATIENT NAME: Mel Castillo DATE: July 27, 2024 TIME: 11:24 AM CSN: [id number] [facility] 07-24-2024 Note Date of Procedure 07/23/2024. Salesperson Hearing Aids Information Inspector Rubber Stamp Die: WESLEY. Start time: 10:44 AM. No view. In wheelchair. Unable to get low enough for photo in downgaze without discomfort. Notes Hazy view, VH; choroidals; possible RD [facility] 07-24-2024 Note Date of Procedure 07/23/2024. Salesperson Hearing Aids Information STEWART Donovan 07/23/2024 11:[address] Lopez. [...] 20mg - Decrease atropine daily right eye (registered veterinary technician) - Continue prednisolone QID right eye (pink [...] than 30 days before your surgery. My neurosurgical physician assistant will be contacting you to schedule this appointment. Your exact time of surgery will not be determined until the day before surgery. My neurosurgical physician assistant will call you the day before your surgery to advise you what time to arrive at the [facility] on the first floor at the [facility]. My neurosurgical physician assistant is Gaston, her number is [phone] Please do no wear contact lenses. We [...] retina fellow. It will be at the [facility] on the 2nd floor. We will [...] Regine Gan in the Pre-anesthesia Consultation Clinic ([phone]) to get instructions on their use before [...] call Regine Gan or a Pre-Anesthesia Testing manufacturing team leader at [phone]. documented in this encounter [facility] 07-23-2024 Note HNO ID: [id number] Author: SAVANA LOPEZ MD Service: ? 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 [facility] 07-23-2024 History of Present illness Narrative [...] choroidals (not yet appositional) - Evaluated at [facility] 07/12/24 with intense nausea and multiple episodes [...] to HTN (SBP 199/99 at presentation to [place]) and anticoagulation that led to angle closure [...] Tuesday - General anesthesia - POD0 Call SanchezFidel (Other) I have confirmed and edited as [...] its relevant components. documented in this encounter [facility] 07-18-2024 Note HNO ID: [id number] Author: JACI JUAREZ, RADHA Service: Nursing Author Type: Registered Nurse Type: Progress Notes Filed: 07/18/2024 14:08 Note Text: Report given to nurse at [facility]. Transport running behind schedule. [facility] 07-16-2024 Note HNO ID: [id number] Author: MICHAEL SOARES MD Service: Ophthalmology Author Type: Resident Type: Plan of Care Filed: 07/16/2024 21:02 Note Text: Patient evaluated today at [facility] by retina attending Dr. Lopez. 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 - I will see her in 1 week for repeat B-scan OD / Optos OD" [facility] 07-16-2024 Note HNO ID: [id number] Author: ALAINA TIPTON RN Service: ? Author Type: Registered Nurse Type: Progress Notes Filed: 07/16/2024 19:27 Note Text: At 15:00 PM, Per Doctor Samk, place connector to Call Light for the patient. Clip placed onto the Call Light for patient to reach. Sign placed onto the patient's door to set patient up to eat, and assist feed. Doctor Platek, on the division, and aware. [facility] 07-16-2024 Note HNO ID: [id number] Author: TRACEY NANCE RN Service: Care Management Author Type: Registered Nurse Type: Care Mgt Progress Note Filed: 07/16/2024 16:49 Note Text: CARE MANAGEMENT PROGRESS NOTE SERVICE DATE: 07/16/2024 SERVICE TIME: 1:04 PM LOS: 9 days Post-Acute Discharge Planning Patient Goal(s): Increase strength [place] of Choice Explained: Discharge Planning Participant(s): Patient/Family Comments: Anticipated # of Days Until Discharge: 0 Transport at Discharge: Needs Prior to Discharge: Needs Prior to Discharge: OT/PT Evaluation Post-Acute Discharge Plan: Discharge to [facility] per FOC. Await updated PT for pre cert initiation. SIGNATURE: Tracey Nance RN PATIENT NAME: Mel Castillo DATE: July 16, 2024 TIME: 1:[address] [facility] 07-16-2024 Note Date of Procedure 07/16/2024. Salesperson Hearing Aids Information Inspector Rubber Stamp Die: Arin Vital. Start time: 8:56 AM. Stop time: 8:56 AM. 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 Salesperson Hearing Aids Information STEWART Donovan 07/16/2024 9:34 AM . [...] choroidals (not yet appositional) - Evaluated at [facility] 07/12/24 with intense nausea and multiple episodes [...] be admitted for this but may need long-term facility due to limited vision in her [...] its relevant components. documented in this encounter [facility] 07-16-2024 Note HNO ID: [id number] Author: SAVANA LOPEZ MD Service: ? Author [...] choroidals (not yet appositional) - Evaluated at [facility] 07/12/24 with intense nausea and multiple episodes [...] to HTN (SBP 199/99 at presentation to [place]) and anticoagulation that led to angle closure [...] be admitted for this but may need long-term facility due to limited vision in her [...] of its relev (more content not included)... [facility] 07-16-2024 Note HNO ID: [id number] Author: BRIANA PRITCHARD MD Service: General Internal [...] - This AM seen by ophthalmology at [facility] appointment Objective MEDICATIONS: Current Facility-Administered Medications [...] Drain Duration External Collection Device 07/15/24 [facility] <1 day Intake/Output 07/12/24 0700 - [...] PMH of COPD (more content not included)... [facility] 07-15-2024 Note HNO ID: [id number] Author: OTILIO GERBER MD Service: Ophthalmology Author [...] BRING PATIENT DOWN FOR FOLLOW UP AT [facility] - Post-op precautions reviewed, including: Signs and symptoms of endophthalmitis, and retinal detachment warning signs reviewed, including increasing floaters, flashes or changes in peripheral vision. [facility] 07-15-2024 Note HNO ID: [id number] Author: BRIANA PRITCHARD MD Service: General Internal Medicine Author Type: Physician Type: Progress Notes Filed: 07/15/2024 12:59 Note Text: Internal Medicine - Dae Chaudhry Progress Note Patient Name: Mel Castillo Patient Location: [place] [id number] Admission Date: 07/07/2024 Length of Stay: 8 [...] MAP Non Invasive (Mean Arterial Pressure): 92 (07/15/24 043) MAP Non Invasive (Mean Arterial Pressure) Min: [...] 9.1 9.3 9.3 (more content not included)... [facility] 07-14-2024 Note HNO ID: [id number] Author: BRIANA PRITCHARD MD Service: Hospital Medicine [...] 36.8 ?C (98.2 ?F) Pulse: 78 (07/14/24 0942) Pulse Min: 59 Max: 115 Resp: 18 (07/14/24 09) Resp Min: 15 Max: 18 BP: (!) 143/44 (07/14/24 0942) BP Min: 82/50 Max: 167/84 MAP Non Invasive (Mean Arterial Pressure): 67 (07/14/24 0942) MAP Non Invasive (Mean Arterial Pressure) Min: [...] Castillo is a (more content not included)... [facility] 07-14-2024 Note HNO ID: [id number] Author: NICOLAS SAHU MD Service: Ophthalmology Author [...] choroidals (not yet appositional) - Evaluated at [facility] 07/12/24 with intense nausea and multiple episodes [...] to HTN (SBP 199/99 at presentation to [place]) that caused angle closure and elevated IOP [...] vision. Nicolas Sahu MD Vitreoretinal Surgery Fellow [facility] 07-13-2024 Note HNO ID: [id number] Author: MARCIA MARTINS APRN.RIDING COACH Service: ? Author Type: Nurse Railroad Operator Type: Anesthesia Procedure Notes Filed: 07/13/2024 12:43 Note Text: ANESTHESIOLOGY PROCEDURE NOTE Airway General Information Procedure Start Time/Medication Administration: 07/13/2024 12:28 PM Procedure End Time: 07/13/2024 12:42 PM Patient location during procedure: OR Timeout Performed Pre-procedure: timeout performed Consent Obtained: Yes Patient identity confirmed: arm band, care manufacturing team leader and patient Staffing RIDING COACH: Marcia Martins APRN.RIDING COACH Performed by: RIDING COACH Indications and Patient Condition Indications for airway management: anesthesia Preoxygenated: yes anesthesia circuit Method: sleep Difficult Mask: No Final Airway Details Final airway type: supraglottic airway Number of attempts at approach: 1 Final Supraglottic Airway: Supraglottic airway: ambu auraonce. Size 4 Seal Adequate: yes Failed airway: no Unrecognized esophageal intubation: no Airway not difficult Comments atraumatic SIGNATURE: Marcia Martins APRN.CARIE PATIENT NAME: Mel Castillo DATE: July 13, 2024 TIME: 12:42 PM CSN: [id number] [facility] 07-13-2024 Note HNO ID: [id number] Author: FELICIA LEVY MD Service: General Internal [...] of vision now s/p laser iridotomy at [place] then trasnferred to [facility] for further management. S/p multiple peripheral [...] mg ORAL DAILY (more content not included)... [facility] 07-12-2024 Note HNO ID: [id number] Author: TRACEY NANCE RN Service: Care Management Author Type: Registered Nurse Type: Care Mgt Progress Note Filed: 07/12/2024 16:50 Note Text: CARE MANAGEMENT PROGRESS NOTE SERVICE DATE: 07/12/2024 SERVICE TIME: 4:46 PM LOS: 5 days Post-Acute Discharge Planning Patient Goal(s): Increase strength [place] of Choice Explained: Discharge Planning Participant(s): Patient/Family Comments: Anticipated # of Days Until Discharge: 0 Transport at Discharge: Needs Prior to Discharge: Post-Acute Discharge Plan: Await SNF choices spoke w/ daughter in law Fidel Garcia sent to [facility] yesterday. This CM reached out to [facility] via email for choices. Daughter In law cannot recall selections. covering CM will need to reach out to [facility] tomorrow for selections that were emailed to her. SIGNATURE: Tracey Nance RN PATIENT NAME: Mel Castillo DATE: July 12, 2024 TIME: 4:[address] [facility] 07-12-2024 Note Date of Procedure 07/12/2024. Salesperson Hearing Aids Information CHAR Veliz ROUB 07/12/2024 12:15 PM . Notes B scan OD: From wheelchair. Patient vomiting during this visit. Best images possible. 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 Possible increased height maximum now at 12:00 measuring 10.0 mm. 2) Not able to assess for mobility today due to patient discomfort 3) SRF over choroidals in three quadrants. [facility] 07-12-2024 Note Date of Procedure 07/12/2024. Salesperson Hearing Aids Information Inspector Rubber Stamp Die: JACQUELINE. Imaging Comments: Limited exam due to patient discomfort-best images possible . Notes Worsening choroid detachments [facility] 07-12-2024 Note HNO ID: [id number] Author: THOMAS SCHMITZ MD Service: ? Author [...] choroidals (not yet appositional) - Evaluated at [facility] 07/12/24 with intense nausea and multiple episodes [...] to HTN (SBP 199/99 at presentation to [place]) that caused angle closure and elevated IOP [...] Resident, PGY-[address]helan 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 Phelan documented in this encounter [facility] 07-12-2024 Note HNO ID: [id number] Author: FELICIA LEVY MD Service: General Internal [...] of vision now s/p laser iridotomy at [place] then trasnferred to [facility] for further management. S/p multiple peripheral [...] possible dispo to SNF or home with [facility] (challenging given multiple daily eye drops and [...] ORAL BID HYDROmorpho (more content not included)... [facility] 07-11-2024 Note HNO ID: [id number] Author: FELICIA LEVY MD Service: General Internal [...] of vision now s/p laser iridotomy at [place] then trasnferred to [facility] for further management. S/p multiple peripheral [...] Note Patient Name: Mel Castillo [address] Admission Date: 07/07/2024 Length of Stay: [...] H PRN AL (more content not included)... [facility] 07-10-2024 Note HNO ID: [id number] Author: FELICIA LEVY MD Service: General Internal [...] of vision now s/p laser iridotomy at [place] then trasnferred to [facility] for further management. S/p multiple peripheral [...] Range in last (more content not included)... [facility] 07-09-2024 Note HNO ID: [id number] Author: TRACEY NANCE RN Service: Care Management [...] Relation: Other Admission Status: Inpatient Insurance Provider: [employer] PPO Discharge Planning requested by: Per Department Practice Potential Transition Plans Home Care Advance Directives Current Advance Directive: Health Care Power of Lawn Care Specialist In Chart: Yes Up To Date and Valid: Yes Current Living Arrangements and Support Lives with: Alone Type of Residence: Mobile Home Support: Friends/neighbors, Family members How do you manage to accomplish the following: Independent: Ambulation;Bathe/Shower;Dress;Angélica g to the bathroom Needs Assistance: Meals/Meal Prep;Medication Management;Transportation to appointments/community Current Services/Equipment Discharge Planning Patient Goal(s): Increase strength [place] of Choice Explained: [place] of Choice Given: Yes Level of Care Discussed: Home Care Are you interested in bedside delivery of your medications? Yes Discharge Planning Participant(s): Caregiver;Family Patient/Family Comments: Fidel Hdez (Other) Caregiver Assessment: Caregiver is ready, willing and able to meet the patient's needs as recommended by the inter-professional team: (friends) Transport at Discharge: Transportation Arrangements: Car Destination: [address] [place] [address] [address] [place] [address] Needs Prior to Discharge: Post-Acute Discharge Plan: Anticipate DC home with [facility] 24-48 hours. HC referrals placed . Await OT evaluation. Patient lives alone in trailer , There are 4 steps to entrance, Using rolator prior to admission. Patient independent with ADL and assist with iADL prior to admission.Patient receives meals on wheels. Family transport to appointments and can provide survey party chief assist. Family transport home. This CM spoke with sister in law for initial assessment. Per sister in law. Family is concerned with DC home with current vision status as patient does not have 24/ supervision. Concerned with patient seeing her meds . Concerned for falls. Family works during day . Request medical team to follow up with Fidel regarding medical plans and possible future surgery. SIGNATURE: Tracey Nance RN PATIENT NAME: Mel Castillo DATE: July 09, 2024 TIME: 4:[address] [facility] 07-09-2024 Note HNO ID: [id number] Author: NADIA VIDAL ? Service: Pharmacy Author Type: Produce Weigher Type: Plan of Care Filed: 07/09/2024 12:31 Note Text: Insurance investigation completed Patient has active prescription insurance: Yes - Patient's insurance is in-network with [facility] Insurance loaded into [place]: Yes Test claim was completed to verify insurance is active: Successful Any questions, please reach out to your medication revenue coordinator. [facility] 07-09-2024 Note HNO ID: [id number] Author: GISSELL POPE RPh Service: Pharmacy Author Type: Pharmacist Type: Plan of Care Filed: 07/09/2024 12:32 Note Text: PHARMACY MEDICATION REVIEW Patient Name: Mel Castillo : 1940 The following medications were updated within the [facility] medication list: Medications ADDED to [facility] medication list Furosemide 40 mg prn swelling Medications CHANGED on [facility] medication list Lisinopril 10 mg changed to 40 mg Increased from 5 mg daily to 40 mg daily on last hospital discharge Medications REMOVED from [facility] medication list Albuterol HFA PRN Lidocaine 4% [...] Yes Completed by: Gissell Pope RPh All [facility] medications addressed by LIP Patient interested in Bedside Delivery Services or using OP Pharmacy at discharge? Yes. Discharge Pharmacy Updated Preferred outpatient pharmacy: [facility]- [facility]/pharmacy #[id number] [place] [address] [address] [place] [id number] [place] [facility] Allergies: Percocet [Oxycodone* Itching [...] Inject 0.7 mL subcutaneously every 12 hours. osnykckqygt-sggspqpms-bueledtw (TRELEGY ELLIPTA) 100-62.5-25 mcg inhalation powder 07/06/2024 [...] None recorded 1 Gissell Pope [facility] 07/09/2024 [facility] 07-09-2024 Note HNO ID: [id number] Author: OTILIO GERBER MD Service: ? Author [...] to HTN (SBP 199/99 at presentation to [place]) that caused angle closure and elevated IOP [...] Follow up with Dr. Lopez Monday 07/16 [facility] eye clinic -Can continue anticoagulation -Patient [...] NLP vision Otilio Gerber MD Ophthalmology Resident [facility] Patient seen and discussed with Dr. Phelan [facility] 07-09-2024 History of Present illness Narrative [...] to HTN (SBP 199/99 at presentation to [place]) that caused angle closure and elevated IOP [...] Follow up with Dr. Lopez Monday 07/16 [facility] eye clinic -Can continue anticoagulation -Patient [...] NLP vision Otilio Gerber MD Ophthalmology Resident [facility] Patient seen and discussed with Dr. Phelan documented in this encounter [facility] 07-09-2024 Note HNO ID: [id number] Author: FELICIA LEVY MD Service: General Internal [...] of vision now s/p laser iridotomy at [facility] then trasnferred to [facility] for further management. S/p multiple peripheral [...] (ml) -2 350 (more content not included)... [facility] 07-08-2024 Note HNO ID: [id number] Author: FELICIA LEVY MD Service: Hospital Medicine [...] of vision now s/p laser iridotomy at [facility] then trasnferred to [facility] for further management. Plan: - Ophthalmology consult - appreciate recs (on systemic prednisone and local treatment, serial exams). - Residents discussed with Ophtho - Ok to continue AC for afib and prior embolic strokes. Will keep on Enoxaparin 1 mg/kg BID - Rest per excellent note by resident Signature: Felicia Levy MD Date: 07/08/2024 Time: 11:41 AM Internal Medicine - aDe Chaudhry Progress Note Patient Name: Mel Castillo [...] Last Admit LABS: CBC: Recent Labs 07/07/24 8213 12 (more content not included)... [facility] 07-07-2024 Note HNO ID: [id number] Author: JARED GILMORE MD Service: ? Author [...] components. Jared Gilmore MD Vitreoretinal Surgery Fellow [facility] 07-07-2024 History of Present illness Narrative [...] with Dr. 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 [facility] 07-07-2024 Nurse Note Report called to [facility]. This RN called Protective Services to try and locate pts lost glasses from 07/05/2024. Glasses that match the description are in lost and found. Will attempt to see if glasses are a match. documented in this encounter [facility] 07-07-2024 Note Formatting of this n ote might be different from the original. Care Management Progress Note DC plan - Transfer to [facility]. Received message from RN who reports pt has a bed at the [facility] and dc orders to go today and is requesting transportation be set up AIDAN. Transportation set up through roundtrip via cot with Ancelmo Hunter for 10:30am. RN, pt and pt's dtr Fidel notified of dc plan and transportation time. No add'l needs for dc noted or identified at this time. Length of Stay (Days): 0 GMLOS: 2.3 [facility] 07-07-2024 Note Formatting of this n ote might be different from the original. Care Management Progress Note DC plan - Transfer to [facility]. Received message from RN who reports pt has a bed at the [facility] and dc orders to go today and is requesting transportation be set up AIDAN. Transportation set up through roundtrip via cot with Ancelmo Elsa for 10:30am. RN, pt and pt's dtr Fidel notified of dc plan and transportation time. No add'l needs for dc noted or identified at this time. Length of Stay (Days): 0 GMLOS: 2.3 [facility] 07-07-2024 Miscellaneous Notes Care Management Progress Note DC plan - Transfer to [facility]. Received message from RN who reports pt has a bed at the [facility] and dc orders to go today and is requesting transportation be set up AIDAN. Transportation set up through roundtrip via cot with Ancelmo Elsa for 10:30am. RN, pt and pt's dtr Fidel notified of dc plan and transportation time. No add'l needs for dc noted or identified at this time. Length of Stay (Days): 0 GMLOS: 2.3 Complicated discharge , live alone, poor vision - PT/OT now ordered- live in mobile home. Consults in progress. Need [facility] to follow - does have pcp , [...] is working on this . With staff. [facility] she is agreeable to it if goes home . [employer] Mel Pop : 1940 Primary Care Physician: Jared Evans MD The patient and/or family/surrogate voluntarily agreed to participate in ACP services. Patient s cognitive capacity: intact Code Status: [ ] [FULL CODE - Continue all advanced life support: CPR,intubation,invasive procedures] [ X ] [DNR-CCA - DO NOT do CPR, intubation] [_] [DNR-CIRCULAR KNITTER HELPER - Comfort care only] [_] DNR form [was/was not] signed Summary of discussion: The patient health care POA/ surrogate is the following: Fidel STAPLETON ([facility]) I answered all the patient/family questions [...] with patient and/or family/surrogate. Silvio Peres MD [facility]3] 07/05/2024, 1:18 PM documented in this encounter [facility] 07-07-2024 History of Present illness Narrative Nutrition rescreen completed. Chart reviewed. Patient to be monitored and followed by the diet senior health physics technician. Images from the original note were not included. PHYSICAL THERAPY [facility] Initial Evaluation Name/MRN: Mel Pop ([id number]) Evaluation Date: 07/06/2024 Date of : 1940 Admission Date: 07/05/2024 4:21 AM Age: 83 y.o. 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 [...] of Care supervision is transferred to a [facility] Therapy Services Physical Therapist. Goals and/or treatment plan was established in collaboration with patient/family/other representatives. Hospitalist Progress Note 07/06/2024 Subjective: Admit Date: 07/05/2024 PCP: Jared Evans MD Room#: W3324/W3-406 A BRIEF HOSPITAL COURSE: Per admitting hospitalist's [...] chloride, 50 mL/hr, Last Rate: 50 mL/hr (07/06/2418) Assessment Plan Acute angle-closure glaucoma - seen [...] Henderson DO Division of Hospitalist Medicine Acute [facility] documented in this encounter [facility] 07-06-2024 Nurse Note This RN called Protective Services to try and locate pts lost glasses from 07/05/2024. Glasses that match the description are in lost and found. Will attempt to see if glasses are a match. [facility] 07-06-2024 Telephone encounter Note TELEPHONE ENCOUNTER 07/06/2024 Patient with recent stroke and admitted to [facility] where she was noted to have elevated IOP with retinal detachment of the right eye by consult insole buffer. She has a history of RD in [...] optos OU Ryan Elizondo MD Ophthalmology Resident [facility] Work Phone: 07-06-2024 Miscellaneous Notes TELEPHONE ENCOUNTER 07/06/2024 Patient with recent stroke and admitted to [facility] where she was noted to have elevated IOP with retinal detachment of the right eye by consult insole buffer. She has a history of RD in [...] MD Ophthalmology Resident documented in this encounter [facility] 07-06-2024 Note Formatting of this n [...] is working on this . With staff. [facility] she is agreeable to it if goes home . [employer] 07-06-2024 Note Formatting of this n ote [...] is working on this . With staff. [facility] she is agreeable to it if goes home . [employer] 07-06-2024 Consult note Formatting of th is [...] referral to a retinal subspecialist at either [facility] or [facility] for repair of retinal detachment right eye (OD). Continue ophthalmic pressure lowering ophthalmic meds right eye (OD) until seen by retinal subspecialist. [employer] Phone: 07-06-2024 Consult note Formatting of th [...] referral to a retinal subspecialist at either [facility] or [facility] for repair of retinal detachment [...] days. Associated Order(s): Inpatient consult to Endovascular Neurology--[facility] Inpatient consult to Endovascular Neurology--[facility] Consult performed by: Helga Naik APRN - SCHOOL NURSE Consult ordered by: Wm Nunes DO Reason [...] has no past medical history of Cancer ([facility]) ([facility]), Cerebral artery occlusion with cerebral infarction ([facility]), CHF (congestive heart failure) ([facility]), Diabetes mellitus ([facility]), Hemodialysis patient ([facility]) ([facility] [...] Name: Mel Pop Patient : 1940 Acct: [id number] Date of Admission: 07/05/2024 Room/Bed: 60/60 PCP: [...] Historical Provider, ergocalciferol (Vitamin D2) 1.25 MG (10612 UT) capsule Take 1.25 mg by mouth [...] MG tablet Take as directed by [facility] Anticoagulation Clinic (90 tablets = 90 [...] , Rfl: ergocalciferol (Vitamin D2) 1.25 MG (97542 UT) capsule, Take 1.25 mg by mouth [...] MG tablet, Take as directed by [facility] Anticoagulation Clinic (90 tablets = 90 [...] 0434 (!) 197/99 65 99 % -- 07/05/249 -- -- -- 160 lb (72.6 kg) [...] 4:46 AM EST. Report Dictated on Workstation: [employer] Electronically Signed By: Cirilo Ray DR Electronically [...] this patient's care. documented in this encounter [facility] 07-05-2024 Consult note Formatting of th [...] drops are started. Will continue to follow. [facility] 07-05-[address] Carlson at bedside. [facility] 07-05-[address] Carlson at bedside. Provider notified of patient request for pain meds. Dr. Carlson at bedside Patient is returning back to room 32 at this time with Jose, Medic. Pt currently at eye clinic with RADHA Hinkle for emergent eye laser procedure. Pt emergently going to eye clinic. Pt being transported in wheelchair with trauma float RADHA Hinlke and Maritza FRAGA Pt being transported on zoll monitor and acls kit. Ophthalmology at bedside Report to Maritza FRAGA Emergency Department Encounter Location: [facility] EMERGENCY DEPT Patient: Mel Pop : [...] 423 ms QTC Interval 418 ms P [place] 0 degrees QRS [place] 37 degrees T Wave [place] 29 degrees [place] Interval 0 ms Troponin, High Sensitivity, Serial, [...] EST. Report Dictated on Electronically Signed By: Criilo Ray DR Electronically Signed Date/Time: 07/05/2024 5:03 [...] IV. I discussed with Dr. Peres from [facility] hospitalist service who accepted the admit. Medications [...] Given 07/05/24 0517) I am not the pre billing clinician of record. Dr. Nunes is the pre billing clinician of record. Final Impression 1. Vision [...] MD 07/05/24 1322 documented in this encounter [facility] 07-05-2024 Note Formatting of this n [...] - DO NOT do CPR, intubation] [_] [DNR-CIRCULAR KNITTER HELPER - Comfort care only] [_] DNR form [was/was not] signed Summary of discussion: The patient health care POA/ surrogate is the following: Fidel STAPLETON ([facility]) I answered all the patient/family questions [...] with patient and/or family/surrogate. Silvio Peres MD [facility]3] 07/05/2024, 1:18 PM [facility] 07-05-2024 Note Formatting of this n [...] - DO NOT do CPR, intubation] [_] [DNR-CIRCULAR KNITTER HELPER - Comfort care only] [_] DNR form [was/was not] signed Summary of discussion: The patient health care POA/ surrogate is the following: Fidel STAPLETON ([facility]) I answered all the patient/family questions [...] and/or family/surrogate. Silvio Peres MD [facility] 07/05/2024, 1:18 PM [facility] 07-05-2024 History and physical note Attending History and Physical Admit Date: 07/05/2024 PCP: Jared Evans MD CHIEF COMPLAINT: Loss of vision right eye, headache/eye pain, nausea, eye swelling Reason for Admission: 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 History Obtained From: patient and patient's [id number] HISTORY OF PRESENT ILLNESS: Mel is a [...] Resource Strain: Low Risk (06/20/2024) Received from [facility] Overall Financial Resource Strain (CARDIA) Difficulty of Paying Living Expenses: Not very hard Food Insecurity: No Food Insecurity (06/20/2024) Received from [facility] Hunger Vital Sign Worried About Running Out of Food in the Last Year: Never true Ran Out of Food in the Last Year: Never true Transportation Needs: No Transportation Needs (07/02/2024) Received from [facility] Transportation Source Has lack of transportation [...] No Stress Concern Present (06/19/2024) Received from [facility] [place] of Occupational Health - Occupational Stress Questionnaire Feeling of Stress : Not at all Social Connections: Moderately Isolated (06/20/2024) Received from [facility] Social Connection and Isolation Panel [NHANES] Frequency of Communication with Friends and Family: More than three times a week Frequency of Social Gatherings with Friends and Family: Once a week Attends Rastafari Services: More than 4 times per year Active Member of Clubs or Organizations: No Attends Club or Organization Meetings: Never Marital Status: Intimate Partner Violence: Not At Risk (06/19/2024) Received from [facility] Domestic Abuse Assessment Do you feel safe in your relationships at home?: Yes Physical Abuse: Denies [facility] Domestic Abuse - Type of Abuse: Not on file [facility] Domestic Abuse - Time Frame: Not on file [facility] Domestic Abuse - Signs and Symptoms: Not on file Verbal Abuse: Denies [facility] Domestic Abuse - Reported To: Not on file Housing Stability: Low Risk (06/20/2024) Received from [facility] Housing Stability Vital Sign Unable [...] the evening. ergocalciferol (Vitamin D2) 1.25 MG (29215 UT) capsule Take 1.25 mg by mouth [...] MG tablet Take as directed by [facility] Anticoagulation Clinic (90 tablets = 90 [...] 12 lead [facility] Result Date: 07/05/2024 Atrial fibrillation Electronically Signed On 07-05-2024 12:39:21 EST by Jhonatan Hernandez MR brain wo contrast Result Date: 07/05/2024 [facility] 1940 [id number] Exam Date/Time: 07/05/2024 11:45 Procedure: MR BRAIN [...] 07/05/2024 Patient Name: [facility]EL [facility] 1940 [id number] Exam Date/Time: 07/05/2024 04:36 Procedure: CT HEAD [...] 07/05/2024 [facility]: [facility]EL [facility] 1940 [id number] Exam Date/Time: 07/05/2024 04:36 Procedure: CT HEAD [...] 07/05/2024 Patient Name: MEL POP : 1940 [facility]#: [id number] Exam Date/Time: 07/05/2024 04:36 Procedure: CT PERFUSION [...] glucose meter Result Date: 07/05/2024 Performed by: [facility], [address] [place] [address] CLIA ID: [id number] Assessment / Plan Discussed management with the [...] MD Division of Hospitalist Medicine Acute care [facility] Dictated using Jovie Version 2.4 Proof read however unrecognized voice recognition errors may have occurred [employer] Work Phone: 07-05-2024 Note [employer] [facility] 07-05-2024 History and physical note Attending History and Physical Admit Date: 07/05/2024 PCP: Jared Evans MD CHIEF COMPLAINT: Loss of vision right eye, headache/eye pain, nausea, eye swelling Reason for Admission: 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 History Obtained From: patient and patient's [id number] HISTORY OF PRESENT ILLNESS: Mel is a [...] Resource Strain: Low Risk (06/20/2024) Received from [facility] Overall Financial Resource Strain (CARDIA) Difficulty of Paying Living Expenses: Not very hard Food Insecurity: No Food Insecurity (06/20/2024) Received from [facility] Hunger Vital Sign Worried About Running Out of Food in the Last Year: Never true Ran Out of Food in the Last Year: Never true Transportation Needs: No Transportation Needs (07/02/2024) Received from [facility] Transportation Source Has lack of transportation kept you from medical appointments or from getting medications?: No Has lack of transportation kept you from meetings, work, or from getting things needed for daily living?: No Physical Activity: Inactive (04/04/2024) Exercise Vital Sign Days of Exercise per Week: 0 days Minutes of Exercise per Session: 0 min Stress: No Stress Concern Present (06/19/2024) Received from [facility] [place] of Occupational Health - Occupational Stress Questionnaire Feeling of Stress : Not at all Social Connections: Moderately Isolated (06/20/2024) Received from [facility] Social Connection and Isolation Panel [NHANES] Frequency of Communication with Friends and Family: More than three times a week Frequency of Social Gatherings with Friends and Family: Once a week Attends Rastafari Services: More than 4 times per year Active Member of Clubs or Organizations: No Attends Club or Organization Meetings: Never Marital Status: Intimate Partner Violence: Not At Risk (06/19/2024) Received from [facility] Domestic Abuse Assessment Do you feel safe in your relationships at home?: Yes Physical Abuse: Denies [facility] Domestic Abuse - Type of Abuse: Not on file [facility] Domestic Abuse - Time Frame: Not on file [facility] Domestic Abuse - Signs and Symptoms: Not on file Verbal Abuse: Denies [facility] Domestic Abuse - Reported To: Not on file Housing Stability: Low Risk (06/20/2024) Received from [facility] Housing Stability Vital Sign Unable to [...] the evening. ergocalciferol (Vitamin D2) 1.25 MG (70891 UT) capsule Take 1.25 mg by mouth [...] MG tablet Take as directed by [facility] Anticoagulation Clinic (90 tablets = 90 [...] 07/05/2024 Patient Name: MEL POP : 1940 [facility]#: [id number] Exam Date/Time: 07/05/2024 04:36 Procedure: CT HEAD [...] 07/05/2024 [facility]EL [facility] 1940 [id number] Exam Date/Time: 07/05/2024 04:36 Procedure: CT PERFUSION [...] glucose meter Result Date: 07/05/2024 Performed by: [facility], [address] [place] [address] CLIA ID: [id number] Assessment / Plan Discussed management with the [...] Hospitalist Medicine [employer] Dictated using [employer] Medical Version 2.4 Proof read however unrecognized voice recognition errors may have occurred documented in this encounter [facility] 07-05-2024 Emergency department Note Provider notified of patient request for pain meds. [facility] 07-05-2024 Consult note Associated Order (s): [...] drops to be discontinued after 4 days. [facility] 07-05-2024 Consult note Associated Order (s): Inpatient consult to Endovascular Neurology--[facility] Inpatient consult to Endovascular Neurology--[facility] Consult performed by: Helga Naik APRN - [facility] Consult ordered by: Wm Nunes [...] has no past medical history of Cancer ([facility]) ([facility]), Cerebral artery occlusion with cerebral infarction ([facility]), CHF (congestive heart failure) (HCC), Diabetes mellitus (HCC), Hemodialysis patient ([facility]) ([facility] [...] ., . Personal review of: Imaging,Labs,Old Records},.},. [facility] [employer] Work Phone: 07-05-[address] Carlson at bedside [facility] 07-05-2024 Emergency department Note Patient is returning back to room 32 at this time with Jose, Medic. [facility] 07-05-2024 Emergency department Note Pt currently at eye clinic with RADHA Hinkle for emergent eye laser procedure. [facility] 07-05-2024 Note Pt currently at eye clinic with RADHA Hinkle for emergent eye laser procedure. [facility] 07-05-2024 Emergency department Note Pt emergently going to eye clinic. Pt being transported in wheelchair with trauma float RADHA Hinkle and Maritza FRAGA Pt being transported on zoll monitor and acls kit. [facility] 07-05-2024 Emergency department Note Ophthalmology at bedside [facility] 07-05-2024 Emergency department Note Report to Maritza FRAGA [facility] 07-05-2024 Consult note Associated Order (s): IP CONSULT TO STROKE TEAM STROKE TEAM NOTE Patient Name: Mel Pop Patient : 1940 Acct: [id number] Date of Admission: 07/05/2024 Room/Bed: 60/60 PCP: [...] Historical Provider, ergocalciferol (Vitamin D2) 1.25 MG (90750 UT) capsule Take 1.25 mg by mouth [...] MG tablet Take as directed by [facility] Anticoagulation Clinic (90 tablets = 90 [...] , Rfl: ergocalciferol (Vitamin D2) 1.25 MG (45136 UT) capsule, Take 1.25 mg by mouth [...] MG tablet, Take as directed by [facility] Anticoagulation Clinic (90 tablets = 90 [...] motor function: 0=Normal Total: 2 Pre-admission Modified Ellis Score: 1 __ 0 No symptoms at [...] to be involved in this patient's care. [employer] Phone: 07-05-2024 Physician Emergency department Note Emergency Department Encounter Location: [facility] EMERGENCY DEPT Patient: Mel Pop : [...] 423 ms QTC Interval 418 ms P [place] 0 degrees QRS [place] 37 degrees T Wave [place] 29 degrees [place] Interval 0 ms Troponin, High Sensitivity, Serial, [...] IV. I discussed with Dr. Peres from [facility] hospitalist service who accepted the admit. Medications [...] Given 07/05/24 0517) I am not the pre billing clinician of record. Dr. Nunes is the pre billing clinician of record. Final Impression 1. Vision loss of right eye 2. Acute intractable headache, unspecified headache type DISPOSITION Observation 07/05/2024 01:21:52 PM (Please note that portions of this note may have been completed with a voice recognition program. Efforts were made to edit the dictations but occasionally words are mis-transcribed.) Jhonatan Hernandez MD [employer] Jhonatan Hernandez MD 07/05/24 1322 [facility] 06-19-2024 Note HNO ID: [id number] Author: JOSE GONZALEZ tim Service: Pharmacy Author [...] for ICA aneurysm Jose Gonzalez [facility] Pager: Nora/Hailey cervantes 06/19/2024 1:31 [...] by mouth twice daily before meals (0600/1600). TRELEHAO ELLIPTA 100-62.5-25 mcg inhalation powder Generic drug: okrtzylfutj-xuntrwdje-dkxtevqw VITAMIN C 500 mg tablet Generic drug: [...] [facility] 06-19-2024 Note HNO ID: [id number] Author: ROSLYN ROSE RN Service: Care Management Author Type: Registered Nurse Type: Care Mgt Progress Note Filed: 06/19/2024 13:11 Note Text: CARE MANAGEMENT DISCHARGE NOTE SERVICE DATE: June 19, 2024 SERVICE TIME: 1:10 PM Admission Date: 06/10/2024 LOS: 8 days Discharge Arrangement Discharge Arrangement: Acute Rehabilitation Facility Services Arranged Provider Name: Taylor Patiño [facility] Caregiver Assessment Caregiver is ready, willing and able to meet the patient's needs as recommended by the inter-professional team: Yes Name of Caregiver: Taylor Muir Transportation Arrangements Transportation Arrangements: Ambulance Transportation Agency and Phone #:: [facility] ( [facility] ) [phone] / [phone] Date of Trip: 06/19/24 Time of Trip: 1800 Type of Service: BLS Non-emergency Magnetic Healer Location: [facility] Destination: [facility] Financial Care Management Responsibility: None Handoff Communication: Handoff to: Specialty Medical Writer Specialty Medical Writer Name/Phone: Taylor Muir Additional Information: Patient has insurance precert and is discharging to [facility] at 6:00 PM. Spoke with patient at bedside and son Maxwelll via phone who are aware and agreeable. Transfer envelope with chart. Care team aware via Pict chat. Discharge Information Row Name ED to Hosp-Admission (Current) from 06/10/2024 in [place] [address] NEURO/CARD Rehab Facility Agency [facility] - Taylor Patiño SIGNATURE: Roslyn Rose RN PATIENT NAME: Mel Castillo DATE: June 19, 2024 TIME: 1:10 PM CONTACT #: [phone] [facility] 06-19-2024 Note HNO ID: [id number] Author: DON EDWARDS DO Service: Hospital Medicine Author Type: Physician Type: Progress Notes Filed: 06/19/2024 12:53 Note Text: DEPARTMENT OF HOSPITAL MEDICINE PROGRESS NOTE SERVICE DATE: 06/19/2024 SERVICE TIME: 10:10 AM Hospital Medicine/Primary Attending: Don Edwards DO NIGHT AND WEEKEND COVERAGE: [place] COVERAGE: From 7am - 7pm, please call [phone] After 7pm, please call cross cover pager #[phone] Subjective INTERVAL HPI: Pt seen and examined. [...] 22 Gauge -- days Peripheral 06/12/24 042 [facility] Short Right Forearm 20 Gauge 7 [...] now event with subtherapeutic coumadin. Rehab [place]. Will need to follow up with neurology [...] -- 06/11/24 0730 vte current anticoag therapy ([place]) 06/11/24 0730 activity - mobilize patient ([place] VTE Prophylaxis: VTE prophylaxis appropriate Disposition: Acute Rehab Plan of care discussed with: Provider, RN, Patient SIGNATURE: Don Edwards DO PATIENT NAME: Mel Castillo DATE: June 19, 2024 TIME: 10:10 AM etx [id number] [facility] 06-18-2024 Note HNO ID: [id number] Author: ANABEL VEGA, ? Service: Care Management Author Type: ? Type: Care Mgt Progress Note Filed: 06/18/2024 17:18 Note Text: [facility] PRECERT NOTE HUMAN MEDICARE PPO approved Inpatient Rehab Facility for [facility]. Precert approved for dates: - 06/26/2024. For any additional questions regarding approvals, transport or care management needs, please contact the CM assigned to this patient in the Treatment Team. SIGNATURE: Anabel Khalil Page DATE: June 18, 2024 TIME: 5:17 PM [facility] 06-18-2024 Note HNO ID: [id number] Author: MARK MINOR DO Service: Hospital Medicine Author Type: Physician Type: Progress Notes Filed: 06/18/2024 16:17 Note Text: DEPARTMENT OF HOSPITAL MEDICINE PROGRESS NOTE SERVICE DATE: 06/18/2024 SERVICE TIME: 4:06 PM Hospital Medicine/Primary Attending: Mark Minor DO NIGHT AND WEEKEND COVERAGE: After 7pm please page [phone] SUBJECTIVE: Patient seen examined at bedside. No [...] now event with subtherapeutic coumadin. [place] Will need to follow up with neurology [...] [facility] 06[facility]18[facility] Note HNO ID: [id number] Author: ROSLYN ROSE RN Service: Care Management Author Type: Registered Nurse Type: Care Mgt Progress Note Filed: 06/18/2024 12:32 Note Text: CARE MANAGEMENT PROGRESS NOTE SERVICE DATE: 06/18/2024 SERVICE TIME: 9:01 AM LOS: 7 days Chart reviewed. [facility] Will need precert and cot transport. CM to follow for transitional care planning. ADDENDUM at 10:20 AM- Spoke with patient at bedside and provided update on pending precert. Received message from [facility] that insurance is requesting updated PT/OT evals and notified therapy. SIGNATURE: Roslyn Rose RN PATIENT NAME: Mel Castillo DATE: June 18, 2024 TIME: 9:01 AM PAGER/CONTACT #: [phone] [facility] 06-17-2024 Note HNO ID: [id number] Author: DON EDWARDS DO Service: Hospital Medicine Author Type: Physician Type: Progress Notes Filed: 06/17/2024 13:52 Note Text: DEPARTMENT OF HOSPITAL MEDICINE PROGRESS NOTE SERVICE DATE: 06/17/2024 SERVICE TIME: 11:15 AM Hospital Medicine/Primary Attending: Don Edwards DO NIGHT AND WEEKEND COVERAGE: [place] COVERAGE: From 7am - 7pm, please call [phone] After 7pm, please call cross cover pager #[phone] Subjective INTERVAL HPI: Pt seen and examined. [...] 22 Gauge -- days Peripheral 06/12/24 0427 [facility] Short Right Forearm 20 Gauge 5 [...] eliquis. She was seen by therapy and long-term facility was recommended. 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 [place] Will need to follow up with neurology [...] -- 06/11/24 0730 vte current anticoag therapy ([place]) 06/11/24 0730 activity - mobilize patient ([place] VTE Prophylaxis: VTE prophylaxis appropriate Disposition: Acute Rehab Plan of care discussed with: Provider, RN, Patient SIGNATURE: Don Edwards DO PATIENT NAME: Mel Castillo DATE: June 17, 2024 TIME: 11:15 AM etx [id number] [facility] 06-16-2024 Note HNO ID: [id number] Author: DON EDWARDS DO Service: Hospital Medicine Author Type: Physician Type: Progress Notes Filed: 06/16/2024 13:06 Note Text: DEPARTMENT OF HOSPITAL MEDICINE PROGRESS NOTE SERVICE DATE: 06/16/2024 SERVICE TIME: 11:00 AM Hospital Medicine/Primary Attending: Don Edwards DO NIGHT AND WEEKEND COVERAGE: [place] COVERAGE: From 7am - 7pm, please call [phone] After 7pm, please call cross cover pager #[phone] Subjective INTERVAL HPI: Pt seen and examined. [...] 22 Gauge -- days Peripheral 06/12/24 0427 [facility] Short Right Forearm 20 Gauge 4 days Drain Duration Indwelling Urinary Catheter 06/11/24 1535 [facility] Ceballos 16 Fr 4 days Reviewed lines and needs to be continued: REASONS: Difficulty in obtaining/maintaining access DATA: Diagnostic tests reviewed for today's visit: Most recent labs and imaging results. 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 [place] Will need to follow up with neurology [...] -- 06/11/24 0730 vte current anticoag therapy ([place]) 06/11/24 0730 activity - mobilize patient ([place]) VTE Prophylaxis: VTE prophylaxis appropriate Disposition: Acute Rehab Plan of care discussed with: Provider, RN, Patient SIGNATURE: Don Edwards DO PATIENT NAME: Mel Castillo DATE: June 16, 2024 TIME: 11:00 AM etx [id number] [facility] 06-15-2024 Note HNO ID: [id number] Author: ERA TELLES MD Service: Hospital Medicine [...] on oxygen Plan for acute rehab at [place] [facility] able to accept. Await precert Plan of care discussed with: Provider, RN, Patient. SIGNATURE: Era Telles MD PATIENT NAME: Mel Castillo DATE: June 15, 2024 TIME: 2:40 PM PAGER: [facility] 06-15-2024 Note HNO ID: [id number] Author: RUSLAN October,.SCHOOL NURSE Service: Urology Author Type: Nurse Practitioner Type: Plan of Care Filed: 06/15/2024 12:16 Note Text: Urology Plan of Care Note RN reached out asking about a void trial today. Notes pt has bloody urine. Pt seen at bedside. Pt eating lunch. Vanessa urine in tubing at this time. Will place PRN irrigation orders if urine is bloody again. Page urology resident clinical information systems director if urine is grade 4 or higher. [...] when I was on the unit. Ariana Ruslan06/15/2024 12:11 PM Page clinical information systems director resident with questions [facility] 06-15-2024 Note HNO ID: [id number] Author: ROSLYN ROSE RN Service: Care Management Author Type: Registered Nurse Type: Care Mgt Progress Note Filed: 06/15/2024 09:38 Note Text: CARE MANAGEMENT PROGRESS NOTE SERVICE DATE: 06/15/2024 SERVICE TIME: 9:36 AM LOS: 4 days Chart reviewed. Insurance precert is pending for [facility]. Will need precert and cot transport. Will place transfer envelope with chart that has signed portable DNR form attached. CM to follow for transitional care planning. SIGNATURE: Roslyn Rose RN PATIENT NAME: Mel Castillo DATE: June 15, 2024 TIME: 9:36 AM PAGER/CONTACT #: [phone] [facility] 06-14-2024 Note HNO ID: [id number] Author: JENNIFER FERNANDEZ RN Service: Nursing Author Type: Registered Nurse Type: Nursing Progress Note Filed: 06/14/2024 17:35 Note Text: 1610: paged urology for voiding trial awaiting response [facility] 06-14-2024 Note HNO ID: [id number] Author: ERA TELLES MD Service: Hospital Medicine [...] on oxygen Plan for acute rehab at [place] [facility] able to accept. Await precert Plan of care discussed with: Provider, RN, Patient. SIGNATURE: Era Telles MD PATIENT NAME: Mel Castillo DATE: June 14, 2024 TIME: 2:47 PM PAGER: [facility] 06-13-2024 Note HNO ID: [id number] Author: EDIE CASTAÑEDA MD Service: Hospital Medicine Author Type: Physician Type: Progress Notes Filed: 06/13/2024 14:18 Note Text: DEPARTMENT OF HOSPITAL MEDICINE Hospital Medicine/Primary Attending: Edie Castañeda MD NIGHT AND WEEKEND COVERAGE: After 7pm please page [phone] MEDICATIONS: Current Facility-Administered Medications Medication Dose Route [...] 06/12/24 1903 06/12/24 1156 06/12/24 0450 06/12/24 0351 06/11/24202106/11/24 1353 06/10/24 233 APTT 51.3* 89.0* 56.1* 79.0* 123.9* 117.3* 28.2 28.9 -- INR -- -- -- -- -- -- -- 1.2 1.3 BMP: Recent Labs 06/13/24 01306/12/24 03506/10/242329 GLUC 95 109* 157* NA 136 137 [...] interatrial septum. Patient sees Dr. Padilla at [facility]. Cardiology saw patient in hospital, recommended [...] [facility] 06-13-2024 Note HNO ID: [id number] Author: CARLYLE GUZMÁN RN Service: Care Management [...] and CHERYL Stokes about accepting facilities. [facility]. Precert started for [facility]. Cot transport is on standby. Will to continue to follow for transitional care planning. SIGNATURE: Carlyle Guzmán RN PATIENT NAME: Mel Castillo DATE: June 13, 2024 TIME: 12:54 PM PAGER/CONTACT #: [phone] [facility] 06-12-2024 Note HNO ID: [id number] Author: SHARONA MCDERMOTT MD Service: Hospital Medicine Author Type: Physician Type: Progress Notes Filed: 06/12/2024 17:08 Note Text: DEPARTMENT OF HOSPITAL MEDICINE Hospital Medicine/Primary Attending: Sharona Mcdermott MD NIGHT AND WEEKEND COVERAGE: After 7pm please page [phone] Saw patient at bedside with friend visiting. [...] Recent Labs 06/12/24 0351 06/11/24 1353 06/10/24 233 WBC 5.17 7.45 5.67 HB 10.6* 11.5 11.4* HCT 34.6* 37.6 37.5 PLT 314 329 330 MCV 85.6 87.0 86.2 RDWCV 15.6* 15.6* 15.6* NEUTP 57.4 72.9 84.2 ABSNEUT 2.97 5.43 4.78 LYMPHP 31.9 16.9 10.8 MONOP 8.9 9.1 3.7 EODINP 1.0 0.3 0.2 COAG: Recent Labs 06/12/24 1156 06/12/24 0450 06/12/24 03506/11/24202106/11/24 1353 06/10/242329 APTT 79.0* 123.9* 117.3* 28.2 28.9 -- INR -- -- -- -- 1.2 1.3 BMP: Recent Labs 06/12/24 03506/10/24 233 GLUC 109* 157* NA 137 136 K 4.0 4.3 CHLOR 101 101 CO2 23 23 ANION 13 12 BUN 12 14 CREAT 1.02* 0.87 CHEM: Recent Labs 06/12/24 03506/10/242329 ALB 3.6* 4.2 TPROT 6.4 7.1 CA [...] interatrial septum. Patient sees Dr. Padilla at [facility]. Cardiology saw patient in hospital, recommended [...] [facility] 06-12-2024 Note HNO ID: [id number] Author: DEBORAH PEACE RN Service: Care Management Author Type: Registered Nurse Type: Care Mgt Progress Note Filed: 06/12/2024 16:10 Note Text: CARE MANAGEMENT PROGRESS NOTE SERVICE DATE: 06/12/2024 SERVICE TIME: 4:09 PM LOS: 1 day [place] Given: Yes Level of Care Discussed: Inpatient Rehab Facility Financial Disclosure Provided: Yes Provider List: Rehab Facility Provider list within the patient's requested geographic area shared with the patient/family: Yes within: 15 miles of zip code: [address] Quality and resource use metrics shared with the patient that are relevant to the patient's goals of care and treatment preferences:: Yes Spoke with pt about pt/ot recs for acute rehab, pt agreeable to list , [facility] be foc but pt would like to discuss acute rehab with her ; referral sent to [facility] SIGNATURE: Deborah Peace RN PATIENT NAME: Mel Castillo DATE: June 12, 2024 TIME: 4:09 PM PAGER/CONTACT #: [phone] [facility] 06-12-2024 Note HNO ID: [id number] Author: ANDREEA KING LSW Service: Care Management Author Type: Commercial Roofing Estimator Type: Care Mgt Progress Note Filed: 06/12/2024 [...] 12, 2024 TIME: 3:20 PM PAGER/CONTACT #: [phone] [facility] 06-11-2024 Note HNO ID: [id number] Author: CARLYLE GUZMÁN RN Service: Care Management [...] Home Advance Directives Current Advance Directive: None Conveyor System Dispatcher Attempted to Assist with AD Completion: Yes [...] General wellness, Be able to go home [place] Explained: [place] Given: No Reason Not Given: [...] family who said she was mostly IND EDGE SANDER and does not endorse any skilled needs at this time. +PCP, +DME, +RX coverage, family to provide DC transportation. Will to continue to follow for transitional care planning. SIGNATURE: Carlyle Guzmán RN PATIENT NAME: Mel Castillo DATE: June 11, 2024 TIME: 3:41 PM CONTACT #: [phone] [facility] 06-11-2024 Note Spoke with Melany Evans's office and she stated that patient is scheduled in their office tomorrow, 06/12 for INR check. I faxed her out last progress note. I will inactivate patient from our service. [facility] 05-21-2024 History of Present illness Narrative INR reported on by Christin with [facility]. Christin can be reached at [phone] with questions. Images from the original note were not included. [facility] Anticoagulation Management Service ([facility]) Anticoagulation Clinic [address], [address], [place] [address] Subjective TYSON Mel (1940) had INR completed [...] Time spent 10 Minutes Faye Castillo with [place] PharmD, BCACP, CACP documented in this encounter [facility] 05-09-2024 History of Present illness Narrative Graciela from [facility] called in results. Images from the original note were not included. [facility] Anticoagulation Management Service ([facility]) Anticoagulation Clinic [address] [place] [address], [address] [place] [address] Subjective TYSON Choi (1940) had INR completed [...] method. Time spent 10 Minutes JOSE ANGEL Perez PharmD, BCPS documented in this encounter [facility] 05-01-2024 History of Present illness Narrative Tia- [facility]- [phone] Images from the original note were not included. [facility] Anticoagulation Management Service ([facility]) Anticoagulation Clinic [address], [place] [address] Subjective TYSON Choi (1940) had INR completed [...] 5 mg daily Next INR Check: 05/08/2024 [facility] Patient educated on the following: dietary/lifestyle considerations and Vitamin K content and consistency Patient care coordination completed: N/A Patient given verbal instructions. Patient expressed understanding utilizing the teach back method. Time spent 10 Minutes Won Tipton RN staffed with Nidia TolbertD, BCACP, CACP documented in this encounter [facility] 04-27-2024 Telephone encounter Note Pt requested refill on warfarin 5mg. Sent to [facility]. Receipt confirmed by pharmacy. [facility] 04-27-2024 Miscellaneous Notes Pt requested refill on warfarin 5mg. Sent to [facility]. Receipt confirmed by pharmacy. documented in this encounter [facility] 04-25-2024 History of Present illness Narrative Vascular Surgery Office Visit Chief Complaint Patient presents with Follow-up 1st follow up RLE mechanical thrombectomy 04/06/24 (Krzysztof) HISTORY OF PRESENT ILLNESS: The patient is a 83 y.o. female who returns for follow-up for RLE mechanical venous thrombectomy with Dr. Hilario on 04/06/24. Patient states overall her RLE has been doing well since surgery. She notes edema has improved and denies any significant pain. She is following with [facility] clinic for Warfarin, switched from Eliquis. [...] (5mg) on 04/[address] [facility] pharmacy for further dosing 04/13/24 Jordin [...] min Stress: No Stress Concern Present (04/04/2024) [place] [employer] - Occupational Stress Questionnaire Feeling of Stress : Not at all Social Connections: Moderately Isolated (04/04/2024) Social Connection and Isolation Panel [NHANES] Frequency of Communication with Friends and Family: More than three times a week Frequency of Social Gatherings with Friends and Family: More than three times a week Attends Rastafari Services: 1 to 4 times per year [...] -Recovering well -Recommend continuing warfarin per [facility] clinic -Continue to elevate as needed. [...] (around 07/26/2024). . documented in this encounter [facility] 04-19-2024 History of Present illness Narrative Graciela with [facility] reports INR on vm Graciela can be reached at [phone] with any questions. Images from the original note were not included. [facility] Anticoagulation Management Service ([facility]) Anticoagulation Clinic [address], [address], [place] [address] Subjective TYSON Choi (1940) had INR completed [...] Perez, PharmD, BCPS documented in this encounter [facility] 04-14-2024 History of Present illness Narrative Placed new order for POCT INR, [facility] had not received. documented in this encounter [facility] 04-14-2024 Miscellaneous Notes Addended by: PATTY DUGGAN on: 04/16/2024 07:01 AM Modules accepted: Orders Addended by: HARMONY GREY on: 04/16/2024 08:41 AM Modules accepted: Orders documented in this encounter [facility] 04-14-2024 Note Addended by: PATTY DUGGAN on: 04/16/2024 07:01 AM Modules accepted: Orders [facility] 04-14-2024 Note Addended by: HARMONY GREY on: 04/16/2024 08:41 AM Modules accepted: Orders [facility] 04-14-2024 Note Addended by: PATTY DUGGAN on: 04/16/2024 07:01 AM Modules accepted: Orders [facility] 04-14-2024 Note Addended by: HARMONY GREY on: 04/16/2024 08:41 AM Modules accepted: Orders [facility] 04-14-2024 Note Addended by: PATTY DUGGAN on: 04/16/2024 07:01 AM Modules accepted: Orders [facility] 04-14-2024 Note Addended by: HARMONY GREY on: 04/16/2024 08:41 AM Modules accepted: Orders [facility] 04-13-2024 Nurse Note AVS explained. Discharged patient on stable condition. [facility] 04-13-2024 Nurse Note AVS explained. Discharged patient on stable condition. Instructed patient on warfarin dosing, she will take 7.5mg tomorrow, and 5mg Tuesday, and then we will check INR with home care on Tuesday as instructed. NO changes to heparin infusion at this time. documented in this encounter [facility] 04-13-2024 Nurse Note Instructed patient on warfarin dosing, she will take 7.5mg tomorrow, and 5mg Tuesday, and then we will check INR with home care on Tuesday as instructed. [facility] 04-13-2024 Note Formatting of this n ote might be different from the original. Phone conversation with the patient at their request from the [facility] regarding her established home care. Patient was wondering what services were being provided and what expectations to have for HHC. I explained her current ordered services and she stated she understood. Patient then asked if she could have meals delivered. I explained I would reach out to her delinquency prevention social worker here at the hospital for further guidance on resources when she gets home. Secure chat sent to KEESHA Basilio regarding this. [facility] 04-13-2024 Note Formatting of this n ote might be different from the original. Phone conversation with the patient at their request from the [facility] regarding her established home care. Patient was wondering what services were being provided and what expectations to have for HHC. I explained her current ordered services and she stated she understood. Patient then asked if she could have meals delivered. I explained I would reach out to her delinquency prevention social worker here at the hospital for further guidance on resources when she gets home. Secure chat sent to KEESHA Basilio regarding this. T [facility] 04-13-2024 Miscellaneous Notes Phone conversation with the patient at their request from the [facility] regarding her established home care. Patient was wondering what services were being provided and what expectations to have for HHC. I explained her current ordered services and she stated she understood. Patient then asked if she could have meals delivered. I explained I would reach out to her delinquency prevention social worker here at the hospital for [...] WIGGINS. Await treatment plan and clinical progress. design project manager will continue to follow for transitional [...] hep gtt, poss thrombectomy tomorrow" 04/06/2024 Virginia eRhman RN 04/04/2024 8:48 AM hep gtt, oliva [...] to oral when appropriate. [facility]- will continue services at discharge. Await treatment plan and clinical progress. design project manager will continue to follow for transitional care needs for discharge planning. Discharge Milestones and Delays Expected date/time: 04/13/2024 Expected discharge disposition: Home Health Services Discharge Milestones Place discharge order Complete med reconciliation Case mgmt discharge readiness Clinical Stability Diagnostic Workup Tafe Lecturer Recommendations Facility Choice Selection Imaging Results PT [...] vasc consult" 04/06/2024 Bernie Cutler APRN - SCHOOL NURSE 04/04/2024 4:04 AM 04/06/2024 Bernie Cutler APRN - SCHOOL NURSE 04/03/2024 11:17 PM Length of Stay (Days): [...] discharge. Await treatment plan and clinical progress. design project manager will continue to follow for transitional [...] discharge. Await treatment plan and clinical progress. design project manager will continue to follow for transitional care needs for discharge planning. Discharge Milestones and Delays Expected date/time: 04/11/2024 Expected discharge disposition: Home or Self Care Discharge Milestones Place discharge order Complete med reconciliation Case mgmt discharge readiness Clinical Stability Diagnostic Workup Tafe Lecturer Recommendations Facility Choice Selection Imaging Results Patient [...] vasc consult" 04/06/2024 Bernie Cutler APRN - SCHOOL NURSE 04/04/2024 4:04 AM 04/06/2024 Bernie Cutler APRN - SCHOOL NURSE 04/03/2024 11:17 PM Length of Stay (Days): 7 GMLOS: 4 Images from the original note were not included. Care Management Progress Note Remains on heparin gtt while transitioning to coumadin. Consult Hemology. Pt active with [facility] will continue services at discharge. Await treatment plan and clinical progress. design project manager will continue to follow for transitional care needs for discharge planning. Discharge Milestones and Delays Expected date/time: 04/10/2024 Expected discharge disposition: Home or Self Care Discharge Milestones Place discharge order Complete med reconciliation Case mgmt discharge readiness Clinical Stability Diagnostic Workup Tafe Lecturer Recommendations Facility Choice Selection Imaging Results Patient [...] vasc consult" 04/06/2024 Bernie Cutler APRN - SCHOOL NURSE 04/04/2024 4:04 AM 04/06/2024 Bernie Cutler APRN - SCHOOL NURSE 04/03/2024 11:17 PM Length of Stay (Days): [...] with completion of Health Care Power of Lawn Care Specialist. One copy placed in patient chart, one copy sent to medical records and two copies given to patient. Requested by patient, while at bedside this SW spoke to patient's son via patients phone to explain that HCPOA was being completed by patient. Patients son José Miguel Castillo ([phone]) agreed to be this patients agent on [...] femoral vein 4) Completion venogram SURGEON: Kristyn Hilario MD ASSISTANTS: Selene Naik MD (PGY-4) FINDINGS: [...] technique was used to place a 5 Georgian sheath. A Bentson wire was able to be advanced in the inferior vena cava without difficulty. The 5 Georgian sheath was then upsized to a 16 Georgian sheath and the penumbra flash suction thrombectomy device was prepared per solar installer technician's instructions. The patient was also given 5000 units of heparin for systemic anticoagulation at this time. The Penumbra device was then inserted through the 16 Georgian sheath and a suction thrombectomy was performed [...] device was removed as was the 16 Georgian sheath and an 0 silk suture was [...] at the conclusion of the case. Kristyn Hilario MD Vascular Surgery Date: 04/06/2024 Location: [facility] OR Name: Mle Pop, : 1940, Diagnosis Pre-op Diagnosis * Right leg DVT (HCC) [I82.401] Post-op Diagnosis * Right leg DVT (HCC) [I82.401] Procedures RIGHT LOWER EXTREMITY VENOUS MECHANICAL THROMBECTOMY 78882 - IA PRQ TRANSLUMINAL MECHANICAL THROMBECTOMY VEIN Surgeons * Kristyn Hilario - Primary Procedure Summary Anesthesia: General ASA: III Estimated Blood Loss: 300 mL Drains: * None in log * Staff: Bail Attacher: Negrita Elizabeth RN; Amira Burton RN Scrub [...] are not indicated for this procedure. Dr Hilario at bedside. She called family to update them on procedure time change Images from the original note were not included. Care Management Progress Note Vascular following with noted plan for possible thrombectomy tomorrow. Remains on heparin gtt while transitioning to coumadin per oncology recommendation. Pt from home alone- indep and active with [facility]- will return. Discharge Milestones and Delays [...] Limits Permission given to speak with patient union contract representative/caregiver as indicated: Confirmation of Payer with [...] home alone and indep. Pt active with [facility]- liaison following for continued services. Pt uses walker/cane at baseline. Pt has insurance, PCP and able to obtain meds. Pt's friends help with transportation. No needs antic at discharge. Virginia Rehman RN Start PACC Note Home Health Referral Educated patient on Home Care and services available. Patient offered choice of available HHC and agreeable to SN/PT services with [facility] at Home - Home Care. Care [...] is noted as yes - consider a BROADBAND TECHNICIAN evaluation once the patient returns home. START PATIENT REGISTRATION INFORMATION Order Information Order Signing Physician: Robert Vigil MD Service Ordered RN ?: Yes Service Ordered PT ?: Yes Service Ordered OT ?: No Service Ordered ST ?: No Service Ordered BROADBAND TECHNICIAN?:No Service Ordered HAIR SPECIALIST?: No Following Physician: Jared Evans MD Following Physician Overseeing Physician: Jared Evans MD (Required for Residents only) Agreeable to Follow? Yes Date/Time of Call 04/04/24 11:36 AM, Spoke with: Patient is a DEB. Care Coordination Same Day SOC?: No Primary Care Physician: Jared Evans MD Primary Care Physician Primary Care Physician Address: [address] [place] [id number] Visit Instructions: N/A Service Discharge Location Type: Home with Home Care Service Facility Name: N/A Service Floor Facility: N/A Service Room No: N/A Demographics Patient Last Name: Jose Alberto Patient First Name: Mel Language/Communication Barrier: none Service Address: [address] [place] [address] Neris Abbott 82 Service City: [place] Service ST: [place] Service ZIP: [address] Service Other phone numbers: Telephone Information: Emergency Contact: Extended Emergency Contact Information Primary Emergency Contact: VasughassanDamaris Mobile Relation: Friend Secondary Emergency Contact: SanchezJosé [...] Caregiver Phone Number: na Caregiver Notes: N/A Interface Security Systems-Tech List No END PATIENT REGISTRATION INFORMATION [...] intervention. Discharge Date: pending Referral Source-PACC: (Hospital/Unit): [facility] / N4-461/N4-461 B End PACC Note The patient is Moderately Stable - Low risk of patient condition declining or worsening The patient's goals for the shift include safety The clinical goals for the shift include therapeutic aptt Patient is currently active with [facility]. The patients current certification period will on 05/18/24. The patient is currently receiving PT services through the agency. [facility] to continue to follow. ADVANCED CARE PLANNING Mel Pop : 1940 Primary Care Physician: Jared Evans MD The patient and/or family/surrogate voluntarily agreed to participate in ACP services. Patient s cognitive capacity: intact Code Status: [ ] [FULL CODE - Continue all advanced life support: CPR,intubation,invasive procedures] [X] [DNR-CCA - DO NOT do CPR, intubation] [_] [DNR-CIRCULAR KNITTER HELPER - Comfort care only] [_] DNR form [...] DO Acute care solutions 04/04/2024, 5:40 AM The [...] barriers include . documented in this encounter [facility] 04-13-2024 Note [facility] 04-13-2024 Hospital course Narrative Discharge Summary Mel Pop : 1940 ADMIT DATE: 04/03/2024 DISCHARGE DATE: 04/13/2024 PRIMARY CARE PHYSICIAN: Jared Evans VISIT STATUS: Admission CODE STATUS: DNR-CCA DISCHARGE DIAGNOSES: Principal Problem: Peripheral arterial disease (HCC) Bilateral lower extremity DVTs RLE thrombectomy HOSPITAL COURSE: 83-year-old woman with history of A-fib on Eliquis, tobacco use, hypertension, hyperlipidemia, asthma, hiatal hernia, GERD presented to [facility] on 04/03 with right leg pain, numbness, tingling causing difficulty ambulating. CTA of lower extremity showed severe atherosclerotic disease with bilateral superficial femoral artery occlusion and transferred to [facility]. She underwent venous thrombectomy with vascular surgery and was initiated on warfarin bridging with heparin. [facility] followed and managed bridging anticoagulation. Pt reported feeling improvement from day to day. Though she was concerned that being stuck in the hospital will debilitate her.Her INR was therapeutic on 04/13. [facility] recommended transition to Warfarin alternating 5mg/7.5mg dosing and close OP follow up for INR check. SIGNIFICANT DIAGNOSTIC STUDIES: BLE Duplex CONSULTANTS: Vascular surgery Pharmacy RECOMMENDED NEXT STEPS: Follow up with [facility] clinic and vascular DISCHARGE MEDICATIONS: Medication [...] (5mg) on 04/[address] [facility] pharmacy for further dosing CONTINUE taking these medications albuterol 108 (90 Base) MCG/ACT inhaler ascorbic acid 500 MG tablet Commonly known as: Vitamin C lisinopril 5 MG tablet pantoprazole 40 MG EC tablet Commonly known as: ProtoNix Trelegy Ellipta 100-62.5-25 MCG/ACT aerosol powder Generic drug: Rbunhcsqxsg-Pwokxytwp-Cencgz STOP taking these medications Eliquis 5 MG tablet Generic drug: apixaban Where to Get Your Medications These medications were sent to [facility] [address] [place] [id number] Hours: Tuesday to Tuesday 10 am to 6 pm oxyCODONE 5 MG immediate release tablet warfarin 5 MG tablet DIET: Adult diet Regular ACTIVITY: No restriction. COMPLEXITY OF FOLLOW UP: [x] Moderate Complexity: follow up within 7-14 calendar days (27939) [] Severe Complexity: follow up within 7 calendar days (48159) FOLLOW UP TESTING, PENDING RESULTS OR REFERRALS AT TRANSITIONAL CARE VISIT: [] Yes [x] No PENDING STUDIES: none DISPOSITION: Home with Home Health Care FACILITY/HOME CARE AGENCY NAME: [facility] Follow up with Kristyn Hilario MD [address] [facility] [address] [facility] [phone] Schedule an appointment as soon as possible for a visit [facility] clinic for INR check next week INSTRUCTIONS [...] 04/13/2024, 2:20 PM documented in this encounter [facility] 04-13-2024 History of Present illness Narrative Images from the original note were not included. PHYSICAL THERAPY [facility] Treatment Note Name/MRN: Mel Pop ([id number]) Date of : 1940 Age: 83 y.o. [...] 1045 Minutes 13 (Gait) Christin Gu PT [facility] Anticoagulation Management Service ([facility]) Inpatient Warfarin Consult HPI: Mel Pop is a 83 y.o. female admitted on 04/03/2024 for Peripheral arterial disease (HCC). Past Medical History: Diagnosis Date Asthma Essential hypertension 03/07/2020 GERD (gastroesophageal reflux disease) Hiatal hernia Pure hypercholesterolemia 03/07/2020 Patient is newly referred to the [facility] clinic for warfarin management. Pt was referred by Anthony Grajeda APRN - [facility]. Pt is on warfarin [...] PharmD [facility] Consult Service is available daily [phone] via Pict Secure Chat. If no response, please page [phone]. Hospitalist Progress Note 04/13/2024 Subjective: Admit Date: 04/03/2024 PCP: Jared Evans MD Room#: N4-461/N4-627 B BRIEF HOSPITAL COURSE: 83-year-old woman with history of A-fib on Eliquis, tobacco use, hypertension, hyperlipidemia, asthma, hiatal hernia, GERD presented to [facility] on 04/03 with right leg pain, numbness, tingling causing difficulty ambulating. CTA of lower extremity showed severe atherosclerotic disease with bilateral superficial femoral artery occlusion and transferred to [facility]. She underwent venous thrombectomy with vascular surgery and was initiated on warfarin bridging with heparin. Gabriella followed and managed bridging anticoagulation. Pt reported feeling improvement from day to day. Though she was concerned that being stuck in the hospital will debilitate her.Her INR was therapeutic on 04/13. [facility] recommended transition to Warfarin alternating 5mg/7.5mg dosing and close OP follow up for INR check. Interval History: Pt seen and examined at bedside. No acute events overnight. Requested to work with PT this morning. They recommend home PT. Heparin gtt discontinued, plan for alternating 5/7.5 dosed warfarin and close OP follow up with [facility]. Case and plan discussed with patient [...] person, place, and time. Medications: Scheduled PRN Zpjhjobmgmp-Kqholpukb-Erilvj, 1 puff, Inhalation, Daily influenza, 0.5 mL, [...] Jordin Roldan MD Division of Hospitalist Medicine [facility] Hospitalist Progress Note 04/12/2024 Subjective: Admit Date: 04/03/2024 PCP: Jared Evans MD Room#: N4-461/N4-461 B BRIEF HOSPITAL COURSE: 83-year-old woman with history of A-fib on Eliquis, tobacco use, hypertension, hyperlipidemia, asthma, hiatal hernia, GERD presented to [facility] on 04/03 with right leg pain, numbness, tingling causing difficulty ambulating. CTA of lower extremity showed severe atherosclerotic disease with bilateral superficial femoral artery occlusion and transferred to [facility]. She underwent venous thrombectomy with vascular [...] person, place, and time. Medications: Scheduled PRN Eilypbczill-Cybrcjaws-Civqhn, 1 puff, Inhalation, Daily influenza, 0.5 mL, [...] Jordin Roldan MD Division of Hospitalist Medicine [facility] Anticoagulation Management Service ([facility]) Inpatient Warfarin Consult HPI: Mel Pop is a 83 y.o. female admitted on 04/03/2024 for Peripheral arterial disease (HCC). Past Medical History: Diagnosis Date Asthma Essential hypertension 03/07/2020 GERD (gastroesophageal reflux disease) Hiatal hernia Pure hypercholesterolemia 03/07/2020 Patient is newly referred to the [facility] for warfarin management. Pt was referred by Anthony Grajeda APRN - SHAMIKA. Pt is on warfarin [...] PharmD [facility] Consult Service is available daily [phone] via Pict Secure Chat. If no response, please page [phone]. Images from the original note were not included. 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 Goals and/or treatment plan was established in collaboration with patient/family/other representatives. Hospitalist Progress Note 04/11/2024 Subjective: Admit Date: 04/03/2024 PCP: Jared Evans MD Room#: N4-111/N4-942 B BRIEF HOSPITAL COURSE: 83-year-old woman with history of A-fib on Eliquis, tobacco use, hypertension, hyperlipidemia, asthma, hiatal hernia, GERD presented to [facility] on 04/03 with right leg pain, numbness, tingling causing difficulty ambulating. CTA of lower extremity showed severe atherosclerotic disease with bilateral superficial femoral artery occlusion and transferred to [facility]. She underwent venous thrombectomy with vascular [...] person, place, and time. Medications: Scheduled PRN Cozxewzgova-Zpcelmunc-Mpwfsu, 1 puff, Inhalation, Daily influenza, 0.5 mL, [...] Division of Hospitalist Medicine [facility] Images from the original note were not included. 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 Goals and/or treatment plan was established in collaboration with patient/family/other representatives. [facility] Anticoagulation Management Service ([facility]) Inpatient Warfarin [...] upon discharge. Patient is agreeable to [facility] follow up. 4. Provided warfarin education. Marybeth Rahman RPh, PharmD [facility] Consult Service is available daily [phone] via Pict [employer]. If no response, please page [phone]. Hospitalist Progress Note 04/10/2024 Subjective: Admit Date: 04/03/2024 PCP: Jared Evans MD Room#: N4-461/N4-461 B BRIEF HOSPITAL COURSE: 83-year-old woman with history of A-fib on Eliquis, tobacco use, hypertension, hyperlipidemia, asthma, hiatal hernia, GERD presented to [facility] on 04/03 with right leg pain, numbness, tingling causing difficulty ambulating. CTA of lower extremity showed severe atherosclerotic disease with bilateral superficial femoral artery occlusion and transferred to [facility]. She underwent venous thrombectomy with vascular [...] MD Jamar Division of Hospitalist Medicine [facility] Nutrition update completed. Chart reviewed. Patient to be monitored and followed by the diet senior health physics technician. FADI Farrar [facility] Anticoagulation Management Service ([facility]) Inpatient Warfarin Consult HPI: Mel Pop is a 83 y.o. female admitted on 04/03/2024 for Peripheral arterial disease (HCC). Past Medical History: Diagnosis Date Asthma Essential hypertension 03/07/2020 GERD (gastroesophageal reflux disease) Hiatal hernia Pure hypercholesterolemia 03/07/2020 Patient is newly referred to the [facility] clinic for warfarin management. Pt was referred by Anthony Grajeda APRN - SHAMIKA. Pt is on warfarin [...] determine if pt is agreeable to [facility] follow-up. 4. Will provide warfarin education. Marybeth Rahman RPh, PharmD [facility] Consult Service is available daily [phone] via [employer]. If no response, please page [phone]. Hospitalist Progress Note 04/09/2024 Assessment/Plan: Data: (CAT1) [...] asthma, hiatal hernia, GERD who presented to [place] 04/03 with right leg pain, numbness, tingling causing difficulty ambulating. CTA of LE, showing severe LE atherosclerotic disease with bilateral superficial femoral artery occlusion, and was transferred to [facility] for admission. Interval History: Mild shortness [...] Robert Vigil MD Division of Hospitalist Medicine [facility] Anticoagulation Management Service ([facility]) Inpatient Warfarin Consult HPI: Mel Pop is a 83 y.o. female admitted on 04/03/2024 for Peripheral arterial disease (HCC). Past Medical History: Diagnosis Date Asthma Essential hypertension 03/07/2020 GERD (gastroesophageal reflux disease) Hiatal hernia Pure hypercholesterolemia 03/07/2020 Patient is newly referred to the [facility] clinic for warfarin management. Pt was [...] PharmD [facility] Consult Service is available daily [phone] via [employer]. If no response, please page [phone]. Hospitalist Progress Note 04/08/2024 Assessment/Plan: Data: (CAT1) [...] asthma, hiatal hernia, GERD who presented to [place] 04/03 with right leg pain, numbness, tingling causing difficulty ambulating. CTA of LE, showing severe LE atherosclerotic disease with bilateral superficial femoral artery occlusion, and was transferred to [facility] for admission. Interval History: Pain continues [...] Robert Vigil MD Division of Hospitalist Medicine [facility] Anticoagulation Management Service ([facility]) Inpatient Warfarin Consult HPI: Mel Pop is a 83 y.o. female admitted on 04/03/2024 for Peripheral arterial disease (HCC). Past Medical History: Diagnosis Date Asthma Essential hypertension 03/07/2020 GERD (gastroesophageal reflux disease) Hiatal hernia Pure hypercholesterolemia 03/07/2020 Patient is newly referred to the [facility] clinic for warfarin management. Pt was [...] determine if pt is agreeable to [facility] follow-up. 4. Will provide warfarin education. Michelle Lugo RPh, PharmD [facility] Consult Service is available daily [phone] via [employer]. If no response, please page [phone]. Hospitalist Progress Note 04/07/2024 Assessment/Plan: Data: (CAT1) [...] Anticipate DC pending clinical improvement and pain., Tafe Lecturer recommendations, Coumadin bridge with heparin Total time [...] asthma, hiatal hernia, GERD who presented to [place] 04/03 with right leg pain, numbness, tingling causing difficulty ambulating. CTA of LE, showing severe LE atherosclerotic disease with bilateral superficial femoral artery occlusion, and was transferred to [facility] for admission. Interval History: Pain improved [...] Robert Vigil MD Division of Hospitalist Medicine [facility] Anticoagulation Management Service ([facility]) Inpatient Warfarin Consult HPI: Mel Pop is a 83 y.o. female admitted on 04/03/2024 for Peripheral arterial disease (HCC). Past Medical History: Diagnosis Date Asthma Essential hypertension 03/07/2020 GERD (gastroesophageal reflux disease) Hiatal hernia Pure hypercholesterolemia 03/07/2020 Patient is newly referred to the [facility] clinic for warfarin management. Pt was [...] PharmD [facility] Consult Service is available daily [phone] via Pict Secure Chat. If no response, please page [phone]. Department of General Surgery Daily Progress Note [...] follow-up 2wk placed in chart for Dr Hilario clinic D/w George Sarah MD PGY5, General Surgery Pager #[phone] CDI Query Response: Acute thrombus within the [...] Anticipate DC pending clinical improvement and pain., Tafe Lecturer recommendations, Coumadin bridge with heparin Total time [...] asthma, hiatal hernia, GERD who presented to [place] 04/03 with right leg pain, numbness, tingling causing difficulty ambulating. CTA of LE, showing severe LE atherosclerotic disease with bilateral superficial femoral artery occlusion, and was transferred to [facility] for admission. Interval History: Has significant [...] Robert Vigil MD Division of Hospitalist Medicine [facility] Department of General Surgery Daily Progress Note [...] 04/06/2024 7:49 AM Associated attestation - Kristyn Hilario MD - 04/06/2024 9:58 AM EDT I [...] questions have been answered to their satisfaction. [facility] Anticoagulation Management Service ([facility]) Inpatient Warfarin Consult HPI: Mel Pop is a 83 y.o. female admitted on 04/03/2024 for Peripheral arterial disease (HCC). Past Medical History: Diagnosis Date Asthma Essential hypertension 03/07/2020 GERD (gastroesophageal reflux disease) Hiatal hernia Pure hypercholesterolemia 03/07/2020 Patient is newly referred to the [facility] clinic for warfarin management. Pt was referred by Anthony Grajeda APRN - SHAMIKA. Pt is on warfarin [...] determine if pt is agreeable to [facility] follow-up 4. Will provide warfarin education. Marybeth Rahman RPh, PharmD [facility] Consult Service is available daily [phone] via Pict Secure Chat. If no response, please page [phone]. Hospitalist Progress Note 04/05/2024 Assessment/Plan: Data: (CAT1) [...] Discharge Disposition: Anticipate DC pending clinical improvement, consultant teacher recommendations Total time spent (which include face [...] asthma, hiatal hernia, GERD who presented to [place] 04/03 with right leg pain, numbness, tingling causing difficulty ambulating. CTA of LE, showing severe LE atherosclerotic disease with bilateral superficial femoral artery occlusion, and was transferred to [facility] for admission. Interval History: Had more [...] Robert Vigil MD Division of Hospitalist Medicine [facility] Nutrition rescreen completed. Chart reviewed. Patient to be monitored and followed by the diet senior health physics technician. FADI Harmon [facility] Anticoagulation Management Service ([facility]) Inpatient Warfarin Consult HPI: Mel Pop is a 83 y.o. female admitted on 04/03/2024 for Peripheral arterial disease (HCC). Past Medical History: Diagnosis Date Asthma Essential hypertension 03/07/2020 GERD (gastroesophageal reflux disease) Hiatal hernia Pure hypercholesterolemia 03/07/2020 Patient is newly referred to the [facility] clinic for warfarin management. Pt was referred by Anthony Grajeda APRN - SHAMIKA. Pt is on warfarin [...] PharmD [facility] Consult Service is available daily [phone] via Pict Secure Chat. If no response, please page [phone]. Department of General Surgery Daily Progress Note [...] 1.45* GLUCOSE 115* 100 Hepatic: Recent Labs 04/03/248 AST 19 ALT [...] thrombectomy tomorrow, will further discuss with Dr Hilario today - Vascular will continue to follow Selene Naik MD General Surgery PGY-4 Pager # [phone] Associated attestation - Kristyn Hilario MD - 04/05/2024 3:31 PM EDT I [...] NPO at midnight for possible thrombectomy tomorrow. [facility] Anticoagulation Management Service ([facility]) Inpatient Warfarin Consult HPI: Mel Pop is a 83 y.o. female admitted on 04/03/2024 for Peripheral arterial disease (HCC). Past Medical History: Diagnosis Date Asthma Essential hypertension 03/07/2020 GERD (gastroesophageal reflux disease) Hiatal hernia Pure hypercholesterolemia 03/07/2020 Patient is newly referred to the [facility] clinic for warfarin management. Pt was referred by Anthony Grajeda APRN - SHAMIKA. Pt is on warfarin [...] determine if pt is agreeable to [facility] follow-up 4. Will provide warfarin education. Thank you for this consult Marybeth Rahman RPh, PharmD [facility] Consult Service is available daily [phone] via Pict Secure Chat. If no response, please page [phone]. Nonbillable encounter. Patient was seen by provider earlier today Patient is an 83-year-old female with history of A-fib on Eliquis, significant tobacco use, HTN, HLD, asthma, hiatal hernia, GERD who presented to [place] 04/03 with right leg pain, numbness, tingling causing difficulty ambulating. CTA of LE, showing severe LE atherosclerotic disease with bilateral superficial femoral artery occlusion, and was transferred to [facility] for admission. Severe bilateral LE atherosclerotic [...] Eliquis -Smoking cessation documented in this encounter [facility] 04-13-2024 Note Formatting of this n ote is different from the original. Images from the original note were not included. Care Management Progress Note INR 2.3 today. Hep drip continued, plan to DC to [facility] today. Plan to have PT seen patient today per her request. Patient is active with [facility]. Await treatment plan and clinical progress. design project manager will continue to follow for transitional [...] vasc consult" 04/06/2024 Bernie Cutler APRN - SCHOOL NURSE 04/04/2024 4:04 AM 04/06/2024 Bernie Cutler APRN - SCHOOL NURSE 04/03/2024 11:17 PM Length of Stay (Days): 10 GMLOS: 4 [facility] 04-13-2024 Note Formatting of this n ote is different from the original. Images from the original note were not included. Care Management Progress Note INR 2.3 today. Hep drip continued, plan to DC to [facility] today. Plan to have PT seen patient today per her request. Patient is active with [facility]. Await treatment plan and clinical progress. design project manager will continue to follow for transitional [...] vasc consult" 04/06/2024 Bernie Cutler APRN - SCHOOL NURSE 04/04/2024 4:04 AM 04/06/2024 Bernie Cutler APRN - SCHOOL NURSE 04/03/2024 11:17 PM Length of Stay (Days): 10 GMLOS: 4 [facility] 04-13-2024 Plan of care note The [...] instructions Outcome: Progressing [facility] 04-12-2024 Plan of care note Problem: [...] risk of patient condition declining or worsening [facility] 04-12-2024 Note Formatting of this n ote is different from the original. Images from the original note were not included. Care Management Progress Note Patent currently still on Hep Drip, INR 1.9. Will convert to oral when appropriate. Pt active with [facility]- will continue services at discharge. Await treatment plan and clinical progress. design project manager will continue to follow for transitional care needs for discharge planning. Discharge Milestones and Delays Expected date/time: 04/13/2024 Expected discharge disposition: Home Health Services Discharge Milestones Place discharge order Complete med reconciliation Case mgmt discharge readiness Clinical Stability Diagnostic Workup Tafe Lecturer Recommendations Facility Choice Selection Imaging Results PT [...] vasc consult" 04/06/2024 Bernie Cutler APRN - SCHOOL NURSE 04/04/2024 4:04 AM 04/06/2024 SEBASTIAN Herrera CNP 04/03/2024 11:17 PM Length of Stay (Days): 9 GMLOS: 4 [facility] 04-12-2024 Note Formatting of this n ote is different from the original. Images from the original note were not included. Care Management Progress Note Patent currently still on Hep Drip, INR 1.9. Will convert to oral when appropriate. Pt active with [facility]- will continue services at discharge. Await treatment plan and clinical progress. design project manager will continue to follow for transitional care needs for discharge planning. Discharge Milestones and Delays Expected date/time: 04/13/2024 Expected discharge disposition: Home Health Services Discharge Milestones Place discharge order Complete med reconciliation Case mgmt discharge readiness Clinical Stability Diagnostic Workup Tafe Lecturer Recommendations Facility Choice Selection Imaging Results PT [...] of Stay (Days): 9 GMLOS: 4 T [facility] 04-12-2024 Plan of care note The [...] instructions Outcome: Progressing [facility] 04-11-2024 Note Formatting of this n ote is different from the original. Images from the original note were not included. Care Management Progress Note Patent currently still on Hep Drip, INR 1.9. Will convert to oral when appropriate. Pt active with [facility]- will continue services at discharge. Await treatment plan and clinical progress. design project manager will continue to follow for transitional [...] lower US, vasc consult" 04/06/2024 Bernie Cutler, ELECTRIC METER REPAIRER HELPER - SCHOOL NURSE 04/04/2024 4:04 AM 04/06/2024 Bernie Cutler APRN - SCHOOL NURSE 04/03/2024 11:17 PM Length of Stay (Days): 8 GMLOS: 4 [facility] 04-11-2024 Note Formatting of this n ote is different from the original. Images from the original note were not included. Care Management Progress Note Patent currently still on Hep Drip, INR 1.9. Will convert to oral when appropriate. Pt active with [facility]- will continue services at discharge. Await treatment plan and clinical progress. design project manager will continue to follow for transitional [...] [place], vasc consult" 04/06/2024 Bernie Cutler APRN [facility] 04/04/2024 4:04 AM 04/06/2024 SEBASTIAN Herrera CNP 04/03/2024 11:17 PM Length of Stay (Days): 8 GMLOS: 4 [facility] 04-11-2024 Plan of care note Problem: [...] patient condition declining or worsening [facility] 04-11-2024 Plan of care note The [...] level or baseline comfort level Outcome: Progressing [facility] 04-10-2024 Plan of care note Problem: [...] risk of patient condition declining or worsening [facility] 04-10-2024 Note Formatting of this n ote is different from the original. Images from the original note were not included. Care Management Progress Note Patient currently still on Heparin Drip, INR 1.6 today.Will convert to oral when appropriate. Pt active with [facility]- will continue services at discharge. Await treatment plan and clinical progress. design project manager will continue to follow for transitional care needs for discharge planning. Discharge Milestones and Delays Expected date/time: 04/11/2024 Expected discharge disposition: Home or Self Care Discharge Milestones Place discharge order Complete med reconciliation Case mgmt discharge readiness Clinical Stability Diagnostic Workup Tafe Lecturer Recommendations Facility Choice Selection Imaging Results Patient Education Complete Expected Discharge History Expected Date/Time Set By Reviewed At 04/11/2024 Cathi Avila, RADHA 04/10/2024 8:41 AM hep gtt- transitioning to [...] Length of Stay (Days): 7 GMLOS: 4 [facility] 04-10-2024 Note Formatting of this n ote is different from the original. Images from the original note were not included. Care Management Progress Note Patient currently still on Heparin Drip, INR 1.6 today.Will convert to oral when appropriate. Pt active with [facility]- will continue services at discharge. Await treatment plan and clinical progress. design project manager will continue to follow for transitional care needs for discharge planning. Discharge Milestones and Delays Expected date/time: 04/11/2024 Expected discharge disposition: Home or Self Care Discharge Milestones Place discharge order Complete med reconciliation Case mgmt discharge readiness Clinical Stability Diagnostic Workup Tafe Lecturer Recommendations Facility Choice Selection Imaging Results Patient [...] Length of Stay (Days): 7 GMLOS: 4 [facility] 04-09-2024 Note Formatting of this n ote is different from the original. Images from the original note were not included. Care Management Progress Note Remains on heparin gtt while transitioning to coumadin. Consult Hemology. Pt active with [facility]- will continue services at discharge. Await treatment plan and clinical progress. design project manager will continue to follow for transitional care needs for discharge planning. Discharge Milestones and Delays Expected date/time: 04/10/2024 Expected discharge disposition: Home or Self Care Discharge Milestones Place discharge order Complete med reconciliation Case mgmt discharge readiness Clinical Stability Diagnostic Workup Tafe Lecturer Recommendations Facility Choice Selection Imaging Results Patient [...] vasc consult" 04/06/2024 Bernie Cutler APRN - SCHOOL NURSE 04/04/2024 4:04 AM 04/06/2024 Bernie Cutler APRN - SCHOOL NURSE 04/03/2024 11:17 PM Length of Stay (Days): 6 GMLOS: 3.1 [facility] 04-09-2024 Note Formatting of this n ote is different from the original. Images from the original note were not included. Care Management Progress Note Remains on heparin gtt while transitioning to coumadin. Consult Hemology. Pt active with [facility]- will continue services at discharge. Await treatment plan and clinical progress. design project manager will continue to follow for transitional care needs for discharge planning. Discharge Milestones and Delays Expected date/time: 04/10/2024 Expected discharge disposition: Home or Self Care Discharge Milestones Place discharge order Complete med reconciliation Case mgmt discharge readiness Clinical Stability Diagnostic Workup Tafe Lecturer Recommendations Facility Choice Selection Imaging Results Patient [...] vasc consult" 04/06/2024 Bernie Cutler APRN - SCHOOL NURSE 04/04/2024 4:04 AM 04/06/2024 Bernie Cutler APRN - SCHOOL NURSE 04/03/2024 11:17 PM Length of Stay (Days): 6 GMLOS: 3.1 [facility] 04-08-2024 Plan of care note Progressing [facility] 04-07-2024 Plan of care note The [...] or baseline comfort level Outcome: Progressing . T [facility] 04-07-2024 Hospital Discharge instructions Lolita Sarah [...] RPh - 04/13/2024 1:[address] [facility] Clinic will monitor your warfarin after you go home. [facility] Phone number: [phone]. Home care nurse will check your INR Monday 04/[address] [facility] will contact you with warfarin dosing [...] detachment Hyperglycemia Osteopenia of left femoral neck ferry terminal agent current use of anticoagulant therapy Seasonal allergies [...] 8 oz) Mental Status: {HECTOR Patient Mental Status:49199} IV Access: {HECTOR IV Access:51597} Nursing Mobility/ADLs: Walking {MAHESH ADL:::"Independent"} Transfer {MAHESH ADL:::"Independent"} Bathing {MAHESH ADL:::"Independent"} Dressing {MAHESH ADL:::"Independent"} Toileting {MAHESH ADL:::"Independent"} Feeding {MAHESH ADL:::"Independent"} Blending Line Attendant {MAHESH ADL:::"Independent"} Med Delivery {yes/no:} Wound Care Documentation and Therapy: Elimination: Continence: Bowel: {yes/no:} Bladder: {yes/no:} Urinary Catheter: {HECTOR Urinary Catheter:} Colostomy/Ileostomy/Ileal Conduit: {YES / NO:} Date of Last BM: Intake/Output Summary (Last 24 hours) at 04/04/2024 1135 Last data filed at 04/03/2024 205 Gross per 24 hour Intake 500 ml Output -- Net 500 ml I/O last 3 completed shifts: In: 500 (6.9 mL/kg) [IV Piggyback:500] Out: - (0 mL/kg) Weight: 72.3 kg Safety Concerns: {HECTOR Safety Concerns:55546} Impairments/Disabilities: {HECTOR Impairments/Disabilities:28184} Nutrition Therapy: Current Nutrition Therapy: {HECTOR Diet List:94326} Routes of Feeding: {routes of feedin} Liquids: {liquid consistency:70623} Daily Fluid Restriction: {daily fluid restriction:63233} Last Modified Barium Swallow with Video (Video Swallowing Test): {done not done:39814} Treatments at the Time of Hospital Discharge: Respiratory Treatments: Oxygen Therapy: {Therapy; copd oxygen:85621} Ventilator: {HECTOR Ventilator:66719} Rehab Therapies: {GEN THERAPY DISCIPLINE SCAL:8879162} Weight Bearing Status/Restrictions: {POD WEIGHT BEARIN} Other Medical Equipment (for information only, NOT a DME order): {Assistive Devices DME:12610} Other Treatments: Patient's personal belongings (please select all that are sent with patient): {HECTOR Patient Belongings:06353} RN SIGNATURE: {E-signature:41549} CASE MANAGEMENT/SOCIAL WORK SECTION Inpatient Status Date: Discharging to Facility/ Agency Name: [facility] Address: [address] [place] [address] Dialysis Facility (if applicable) Name: Address: Dialysis Schedule: Phone: Fax: Teacher Of The Sight Impaired/Commercial Roofing Estimator signature: {E-signature:14192} PHYSICIAN SECTION Name: Mel Pop Prognosis: {Rehab Prognosis:18159} Condition at Discharge: {Patient Condition:18806} Rehab Potential (if transferring to Rehab): {Rehab Prognosis:11728} Recommended Labs or Other Treatments After Discharge: The individual is being admitted to a nursing facility directly from an [facility] or a unit of a [facility] that is not operated by or licensed by [facility] under section 5119.14 or 5160-3-15.1 5 The individual requires the level of services provided by a nursing facility for the condition for which he or she was treated in the hospital and, Physician Certification: I certify the above information and transfer of Mel Pop is necessary for the continuing treatment of the diagnosis listed and that she requires {HECTOR Level of Care:74695} for {greater less than:56974} 30 days. Update Admission H&P: {HECTOR Changes in H&P:53167} PHYSICIAN SIGNATURE: {E-signature:17113} documented in this encounter [facility] 04-07-2024 Nurse Note NO changes to heparin infusion at this time. [facility] 04-06-2024 Note Formatting of this n ote is different from the original. Images from the original note were not included. Care Management Progress Note Pt s/p thrombectomy this am with vascular. Remains on heparin gtt while transitioning to coumadin. Pt active with [facility] will continue services at discharge. Discharge Milestones [...] vasc consult" 04/06/2024 Bernie Cutler APRN - SCHOOL NURSE 04/04/2024 4:04 AM 04/06/2024 Bernie Cutler APRN - SCHOOL NURSE 04/03/2024 11:17 PM Length of Stay (Days): 3 GMLOS: 3.1 [facility] 04-06-2024 Note Formatting of this n ote is different from the original. Images from the original note were not included. Care Management Progress Note Pt s/p thrombectomy this am with vascular. Remains on heparin gtt while transitioning to coumadin. Pt active with [facility] will continue services at discharge. Discharge Milestones [...] Stay (Days): 3 GMLOS: 3.1 [facility] 04-06-2024 Note Formatting of this n ote might be different from the original. Patient report called to 4N RN and denies any further questions. Patient resting comfortably and no signs of distress. Per resident patient to lay flat for 2 hours and restart heparin GTT at 1215. Transport notified. [facility] 04-06-2024 Note Formatting of this n ote might be different from the original. Patient report called to 4N RN and denies any further questions. Patient resting comfortably and no signs of distress. Per resident patient to lay flat for 2 hours and restart heparin GTT at 1215. Transport notified. [facility] 04-06-2024 Note Formatting of this n ote might be different from the original. SW assisted patient with completion of Health Care Power of Lawn Care Specialist. One copy placed in patient chart, one copy sent to medical records and two copies given to patient. Requested by patient, while at bedside this SW spoke to patient's son via patients phone to explain that HCPOA was being completed by patient. Patients son José Miguel Castillo ([phone]) agreed to be this patients agent on the HCPOA and confirmed understanding. [facility] 04-06-2024 Note Formatting of this n ote might be different from the original. SW assisted patient with completion of Health Care Power of Lawn Care Specialist. One copy placed in patient chart, one copy sent to medical records and two copies given to patient. Requested by patient, while at bedside this SW spoke to patient's son via patients phone to explain that HCPOA was being completed by patient. Patients son Jos éMiguel Castillo ([phone]) agreed to be this patients agent on the HCPOA and confirmed understanding. [facility] 04-06-2024 Note Formatting of this n [...] femoral vein 4) Completion venogram SURGEON: Kristyn Hilario MD ASSISTANTS: Selene Naik MD (PGY-4) FINDINGS: [...] technique was used to place a 5 Georgian sheath. A Bentson wire was able to be advanced in the inferior vena cava without difficulty. The 5 Georgian sheath was then upsized to a 16 Georgian sheath and the penumbra flash suction thrombectomy device was prepared per solar installer technician's instructions. The patient was also given 5000 units of heparin for systemic anticoagulation at this time. The Penumbra device was then inserted through the 16 Georgian sheath and a suction thrombectomy was performed [...] device was removed as was the 16 Georgian sheath and an 0 silk suture was [...] at the conclusion of the case. Kristyn Hilario MD Vascular Surgery [facility] 04-06-2024 Note Formatting of this n ote is different from the original. Date: 04/06/2024 Location: [facility] OR Name: Mel Serna Jose Alberto, : 1940, Diagnosis Pre-op Diagnosis * Right leg DVT (HCC) [I82.401] Post-op Diagnosis * Right leg DVT (HCC) [I82.401] Procedures RIGHT LOWER EXTREMITY VENOUS MECHANICAL THROMBECTOMY 83680 - IA PRQ TRANSLUMINAL MECHANICAL THROMBECTOMY VEIN Surgeons * Kristyn Hilario - Primary Procedure Summary Anesthesia: General ASA: III Estimated Blood Loss: 300 mL Drains: * None in log * Staff: Bail Attacher: Negrita Elizabeth RN; Amira Burton RN Scrub [...] antibiotics are not indicated for this procedure. [facility] 04-06-2024 Note Formatting of this n [...] femoral vein 4) Completion venogram SURGEON: Kristyn Hilario MD ASSISTANTS: Selene Naik MD (PGY-4) FINDINGS: [...] technique was used to place a 5 Georgian sheath. A Bentson wire was able to be advanced in the inferior vena cava without difficulty. The 5 Georgian sheath was then upsized to a 16 Georgian sheath and the penumbra flash suction thrombectomy device was prepared per solar installer technician's instructions. The patient was also given 5000 units of heparin for systemic anticoagulation at this time. The Penumbra device was then inserted through the 16 Georgian sheath and a suction thrombectomy was performed [...] device was removed as was the 16 Georgian sheath and an 0 silk suture was [...] at the conclusion of the case. Kristyn Hilario MD Vascular Surgery [facility] [employer] 04-06-2024 Note Formatting of this n ote is different from the original. Date: 04/06/2024 Location: [facility] OR Name: Mel Pop, : 1940, Diagnosis Pre-op Diagnosis * Right leg DVT (HCC) [I82.401] Post-op Diagnosis * Right leg DVT (HCC) [I82.401] Procedures RIGHT LOWER EXTREMITY VENOUS MECHANICAL THROMBECTOMY 02975 - IA PRQ TRANSLUMINAL MECHANICAL THROMBECTOMY VEIN Surgeons * Kristyn Hilario - Primary Procedure Summary Anesthesia: General ASA: III Estimated Blood Loss: 300 mL Drains: * None in log * Staff: Bail Attacher: Negrita Elizabeth RN; Amira Burton RN Scrub [...] antibiotics are not indicated for this procedure. [facility] Note Formatting of this n ote might be different from the original. Dr Hilario at bedside. She called family to update them on procedure time change [facility] 04-06-2024 Note Formatting of this n ote might be different from the original. Dr Hilario at bedside. She called family to update them on procedure time change [facility] 04-06-[address] Hilario at bedside. She called family to update them on procedure time change [facility] 04-05-2024 Note Formatting of this n ote is different from the original. Images from the original note were not included. Care Management Progress Note Vascular following with noted plan for possible thrombectomy tomorrow. Remains on heparin gtt while transitioning to coumadin per oncology recommendation. Pt from home alone- indep and active with [facility]- will return. Discharge Milestones and Delays [...] Length of Stay (Days): 2 GMLOS: 3.1 [facility] 04-05-2024 Note Formatting of this n ote is different from the original. Images from the original note were not included. Care Management Progress Note Vascular following with noted plan for possible thrombectomy tomorrow. Remains on heparin gtt while transitioning to coumadin per oncology recommendation. Pt from home alone- indep and active with [facility]- will return. Discharge Milestones and Delays [...] Length of Stay (Days): 2 GMLOS: 3.1 [facility] 04-05-2024 Plan of care note The patient is Moderately Stable - Low risk of patient condition declining or worsening The patient's goals for the shift include met The clinical goals for the shift include met [facility] 04-04-2024 Consult note Formatting of th is note is different from the original. Images from the original note were not included. [facility] Hematology Oncology Inpatient Consultation [facility] Mel Pop : 1940(83 y.o.) Date: [...] afib, hypertension, and GERD who presented to [facility] for right lower extremity pain. [...] trifurcation vessels. Vascular surgery recommended transfer to [facility]. PVR and BLE US results pending [...] called her listed contacts (her friend and [id number] however they do not manage her pill [...] eliquis. I have left a voicemail with [facility] pharmacy in [place] to see if the Eliquis is being [...] min Stress: No Stress Concern Present (04/04/2024) [employer] [place] [employer] - Occupational Stress Questionnaire Feeling of Stress : Not at all Social Connections: Moderately Isolated (04/04/2024) Social Connection and Isolation Panel [NHANES] Frequency of Communication with Friends and Family: More than three times a week Frequency of Social Gatherings with Friends and Family: More than three times a week Attends Rastafari Services: 1 to 4 times per year [...] tablet 07/18/23 Yes Historical Provider, MD Mark Mazariegosta 100-62.5-25 MCG/ACT aerosol powder 05/19/23 Yes Historical [...] 04/03/2024 [facility] 1940 [id number] Exam Date/Time: 04/03/2024 21:14 Procedure: CTA AORTA [...] 04/03/2024 Patient Name: MEL POP : 1940 [facility]#: [id number] Exam Date/Time: 04/03/2024 21:06 Procedure: CT HEAD [...] completing clinical documentation as well as with [id number] patient care, performing a medically appropriate examination, counseling / educating the patient/family/caregiver, and ordering medications, tests, or procedures. Electronically signed by Anthony Grajeda APRN - SHAMIKA Attending Attestation Note: I have personally performed a face to face diagnostic evaluation on this patient on 04/04/24 . I have reviewed and agree with the care plan outlined above per Anthony Grajeda. My assessment as well as plan/recommendations are [...] well as answering questions. Andre Patel MD [employer] Phone: 04-04-2024 Consult note Formatting of th is note is different from the original. Images from the original note were not included. [facility] [employer] [facility] Hematology Oncology Inpatient Consultation [facility] Mel Pop : 1940(83 y.o.) Date: [...] afib, hypertension, and GERD who presented to [facility] for right lower extremity pain. [...] trifurcation vessels. Vascular surgery recommended transfer to [facility]. PVR and BLE US results pending [...] called her listed contacts (her friend and [id number] however they do not manage her pill [...] left a voicemail with [facility] in [place] to see if the Eliquis is being [...] min Stress: No Stress Concern Present (04/04/2024) [place] [employer]ational [employer] - Occupational Stress Questionnaire Feeling of Stress : Not at all Social Connections: Moderately Isolated (04/04/2024) Social Connection and Isolation Panel [NHANES] Frequency of Communication with Friends and Family: More than three times a week Frequency of Social Gatherings with Friends and Family: More than three times a week Attends Rastafari Services: 1 to 4 times per year [...] 04/03/2024 [facility] 1940 [id number] Ex[facility] Date/Time: 04/03/2024 21:14 Procedure: CTA AORTA [...] 04/03/2024 Patient Name: MEL POP : 1940 [facility]#: [id number] Exam Date/Time: 04/03/2024 21:06 Procedure: CT HEAD [...] completing clinical documentation as well as with [id number] patient care, performing a medically appropriate examination, counseling / educating the patient/family/caregiver, and ordering medications, tests, or procedures. Electronically signed by SEBASTIAN Ashford CNP Attending Attestation Note: I have personally performed a face to face diagnostic evaluation on this patient on 04/04/24 . I have reviewed and agree with the care plan outlined above per Anthony Grajeda. My assessment as well as plan/recommendations are [...] Patient needs smoking cessation Discussed with Dr. Hilario on-call vascular surgeon Lolita Sarah MD PGY5, General Surgery Pager #[phone] Past Medical History: Diagnosis Date Asthma Essential [...] min Stress: No Stress Concern Present (04/04/2024) [place] [employer]ational [employer] - Occupational Stress Questionnaire Feeling of Stress : Not at all Social Connections: Moderately Isolated (04/04/2024) Social Connection and Isolation Panel [NHANES] Frequency of Communication with Friends and Family: More than three times a week Frequency of Social Gatherings with Friends and Family: More than three times a week Attends Rastafari Services: 1 to 4 times per year [...] TESTING: Patient Name: MEL POP : 1940 [facility]#: [id number] Exam Date/Time: 04/03/2024 21:14 Procedure: CTA AORTA [...] PM EDT . Associated attestation - Kristyn Hilario MD - 04/04/2024 4:47 PM EDT I [...] evidence of phlegmasia. Heparin gtt initiated at [facility] prior to transfer and continued here. She notes missed doses of her Eliquis. Recommend compression and elevation of the right lower extremity. Can consider mechanical thrombectomy however given patient's age, this may be more risk than of benefit. Will continue to monitor for symptom improvement on anticoagulation alone. documented in this encounter [facility] 04-04-2024 Note Formatting of this n ote might be different from the original. Care Managment Initial Assessment Date: 04/04/2024 Patient Name: Mel Pop : 1940 Patient Information Source of Information: Patient Cognition/Language: WFL - Within Functional Limits Permission given to speak with patient union contract representative/caregiver as indicated: Confirmation of Payer with [...] home alone and indep. Pt active with [facility]- liaison following for continued services. Pt uses walker/cane at baseline. Pt has insurance, PCP and able to obtain meds. Pt's friends help with transportation. No needs antic at discharge. Virginia Rehman RN [facility] 04-04-2024 Note Formatting of this n ote might be different from the original. Care Managment Initial Assessment Date: 04/04/2024 Patient Name: Mel Pop : 1940 Patient Information Source of Information: Patient Cognition/Language: WFL - Within Functional Limits Permission given to speak with patient union contract representative/caregiver as indicated: Confirmation of Payer with patient/family: Yes Payer Name: emilea : No Confirmation of Primary Care Physician: Confirmed PCP Name: jared cristina Seen in last 2 years?: Yes Primary [...] home alone and indep. [facility] following for continued services. Pt uses walker/cane at baseline. Pt has insurance, PCP and able to obtain meds. Pt's friends help with transportation. No needs antic at discharge. Virginia Rehman RN [facility] 04-04-2024 Note Formatting of this n ote is different from the original. Start PACC Note Home Health Referral Educated patient on Home Care and services available. Patient offered choice of available HHC and agreeable to SN/PT services with [facility] - Home Care. Care Types: [...] is noted as yes - consider a BROADBAND TECHNICIAN evaluation once the patient returns home. START PATIENT REGISTRATION INFORMATION Order Information Order Signing Physician: Robert Vigil MD Service Ordered RN ?: Yes Service Ordered PT ?: Yes Service Ordered OT ?: No Service Ordered ST ?: No Service Ordered BROADBAND TECHNICIAN?:No Service Ordered HAIR SPECIALIST?: No Following Physician: Jared Evans MD Following Physician Overseeing Physician: Jared Evans MD (Required for Residents only) Agreeable to Follow? Yes Date/Time of Call 04/04/24 11:36 AM, Spoke with: Patient is a DEB. Care Coordination Same Day SOC?: No Primary Care Physician: Jared Evans MD Primary Care Physician Primary Care Physician Address: [address] [place] [id number] Visit Instructions: N/A Service Discharge Location Type: Home with Home Care Service Facility Name: N/A Service Floor Facility: N/A Service Room No: N/A Demographics Patient Last Name: Jose Alberto Patient First Name: Mel Language/Communication Barrier: none Service Address: [address] Service City: [place] Service ST: [place] Service ZIP: [address] Service Other phone numbers: Telephone Information: Emergency [...] Phone Number: na Caregiver Notes: N/A [employer] List No END PATIENT REGISTRATION INFORMATION Pt [...] intervention. Discharge Date: pending Referral Source-PACC: (Hospital/Unit): [facility] / N4-461/N4-461 B End PACC Note [facility] 04-04-2024 Note Formatting of this n ote is different from the original. Start PACC Note Home Health Referral Educated patient on Home Care and services available. Patient offered choice of available HHC and agreeable to SN/PT services with [facility] at Home - Home Care. Care [...] is noted as yes - consider a BROADBAND TECHNICIAN evaluation once the patient returns home. START PATIENT REGISTRATION INFORMATION Order Information Order Signing Physician: Robert Vigil MD Service Ordered RN ?: Yes Service Ordered PT ?: Yes Service Ordered OT ?: No Service Ordered ST ?: No Service Ordered BROADBAND TECHNICIAN?:No Service Ordered HAIR SPECIALIST?: No Following Physician: Jared Evans MD Following Physician Overseeing Physician: Jared Evans MD (Required for Residents only) Agreeable to Follow? Yes Date/Time of Call 04/04/24 11:36 AM, Spoke with: Patient is a DEB. Care Coordination Same Day SOC?: No Primary Care Physician: Jared Evans MD Primary Care Physician Primary Care Physician Address: [address] [place] [address] Visit Instructions: N/A Service Discharge Location Type: Home with Home Care Service Facility Name: N/A Service Floor Facility: N/A Service Room No: N/A Demographics Patient Last Name: Jose Alberto Patient First Name: Mel Language/Communication Barrier: none Service Address: [address] [place] [address] [address] Service City: [place] Service ST: [place] Service ZIP: [address] Service Other phone numbers: Telephone Information: Emergency [...] Caregiver Phone Number: na Caregiver Notes: N/A [employer]-Tech List No END PATIENT REGISTRATION INFORMATION [...] intervention. Discharge Date: pending Referral Source-PACC: (Hospital/Unit): [facility] / N4-461/N4-461 B End PACC Note [facility] 04-04-2024 Plan of care note The patient is Moderately Stable - Low risk of patient condition declining or worsening The patient's goals for the shift include safety The clinical goals for the shift include therapeutic aptt [facility] 04-04-2024 Note Formatting of this n ote might be different from the original. Patient is currently active with [facility]. The patients current certification period will on 05/18/24. The patient is currently receiving PT services through the agency. [employer] to continue to follow. [facility] 04-04-2024 Note Formatting of this n ote might be different from the original. Patient is currently active with [facility]. The patients current certification period will on 05/18/24. The patient is currently receiving PT services through the agency. [employer] to continue to follow. [facility] 04-04-2024 Consult note Associated Order (s): IP [...] Patient needs smoking cessation Discussed with Dr. Hilario on-call vascular surgeon Lolita Sarah MD PGY5, General Surgery Pager #[phone] Past Medical History: Diagnosis Date Asthma Essential [...] min Stress: No Stress Concern Present (04/04/2024) [place] [employer] - Occupational Stress Questionnaire Feeling of Stress : Not at all Social Connections: Moderately Isolated (04/04/2024) Social Connection and Isolation Panel [NHANES] Frequency of Communication with Friends and Family: More than three times a week Frequency of Social Gatherings with Friends and Family: More than three times a week Attends Rastafari Services: 1 to 4 times per year [...] TESTING: Patient Name: MEL POP : 1940 [facility]#: [id number] Exam Date/Time: 04/03/2024 21:14 Procedure: CTA AORTA [...] PM EDT . Associated attestation - Kristyn Hilario MD - 04/04/2024 4:47 PM EDT I [...] evidence of phlegmasia. Heparin gtt initiated at [facility] prior to transfer and continued here. She notes missed doses of her Eliquis. Recommend compression and elevation of the right lower extremity. Can consider mechanical thrombectomy however given patient's age, this may be more risk than of benefit. Will continue to monitor for symptom improvement on anticoagulation alone. [facility] 04-04[facility]24 Note Formatting of this n ote is different from the original. [facility] Mel Gallegosd : 1940 Primary Care Physician: Jared Evans MD The patient and/or family/surrogate voluntarily agreed to participate in ACP services. Patient s cognitive capacity: intact Code Status: [ ] [FULL CODE - Continue all advanced life support: CPR,intubation,invasive procedures] [X] [DNR-CCA - DO NOT do CPR, intubation] [_] [DNR-CIRCULAR KNITTER HELPER - Comfort care only] [_] DNR form [...] with patient and/or family/surrogate. Pratibha Avelar DO [facility]3] 04/04/2024, 5:40 AM [facility] 04-04-2024 Note Formatting of this n [...] - DO NOT do CPR, intubation] [_] [DNR-CIRCULAR KNITTER HELPER - Comfort care only] [_] DNR form [...] DO [facility] 04/04/2024, 5:40 AM [facility] 04-04-2024 History and physical note Attending [...] min Stress: No Stress Concern Present (04/04/2024) [place] [employer]ational Health - Occupational Stress Questionnaire Feeling of Stress : Not at all Social Connections: Moderately Isolated (04/04/2024) Social Connection and Isolation Panel [NHANES] Frequency of Communication with Friends and Family: More than three times a week Frequency of Social Gatherings with Friends and Family: More than three times a week Attends Rastafari Services: 1 to 4 times per year [...] DO Division of Hospitalist Medicine Inpatient Medical Services/[facility] Work Phone: 04-04-2024 Note [facility] 04-04-2024 History and physical note [...] min Stress: No Stress Concern Present (04/04/2024) [place] [employer]ational Health - Occupational Stress Questionnaire Feeling of Stress : Not at all Social Connections: Moderately Isolated (04/04/2024) Social Connection and Isolation Panel [NHANES] Frequency of Communication with Friends and Family: More than three times a week Frequency of Social Gatherings with Friends and Family: More than three times a week Attends Rastafari Services: 1 to 4 times per year [...] Relation: Child Pratibha Avelar DO [facility] In[facility] Medical Services/[facility] documented in this encounter [facility] 04-04-2024 Plan of care note The patient is Moderately Stable - Low risk of patient condition declining or worsening The patient's goals for the shift include met The clinical goals for the shift include met Over the shift, the patient did not make progress toward the following goals. Barriers to progression include . Recommendations to address these barriers include . [facility] 04-04-2024 Emergency department Note Report to Delia Bond RN 04/04/24341 [facility] 04-04-2024 Emergency department Note Report to Delia Bond RN 04/04/24341 Multiple attempts made to call report to [facility] with phone number provided by soldering 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 Will try again. Shannon Bond RN 04/04/24 033 [facility] at bedside to transport pt to [facility]. Paperwork with EMS Shannon Bond RN 04/04/24313 EMERGENCY DEPARTMENT ENCOUNTER Pt Name: Mel Pop Birthdate 1940 Date of evaluation: 04/03/2024 ED Provider: Bernie Cutler, ELECTRIC METER REPAIRER HELPER - SCHOOL NURSE This patient was seen in conjunction with [...] Resource Strain: Low Risk (05/18/2022) Received from [facility] Overall Financial Resource Strain (CARDIA) Difficulty of Paying Living Expenses: Not hard at all Food Insecurity: No Food Insecurity (05/18/2022) Received from [facility] Hunger Vital Sign Worried About Running Out of Food in the Last Year: Never true Ran Out of Food in the Last Year: Never true Transportation Needs: No Transportation Needs (05/18/2022) Received from [facility] PRAPARE - Transportation Lack of Transportation (Medical): No Lack of Transportation (Non-Medical): No Housing Stability: Unknown (05/18/2022) Received from [facility] Housing Stability Vital Sign Unable to [...] care with: Admission/observation discussed case with Dr. 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 Patient admitted to [facility]. Patient in agreement with plan. Diagnostics [...] or other complaints. documented in this encounter [facility] [employer] 04-04-2024 Emergency department Note Multiple attempts made to call report to [facility] with phone number provided by soldering 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 Will try again. Shannon Bond RN 04/04/24 0331 [facility] 04-04-2024 Emergency department Note [facility] at bedside to transport pt to [facility]. Paperwork with EMS Shannon Bond RN 04/04/244 [facility] 04-03-2024 Emergency department Triage note Pt [...] upon arrival. No SOB or other complaints. [facility] 04-03-2024 Physician Emergency department Note EMERGENCY [...] Resource Strain: Low Risk (05/18/2022) [facility] Overall Financial Resource Strain (CARDIA) Difficulty of Paying Living Expenses: Not hard at all Food Insecurity: No Food Insecurity (05/18/2022) Received from [facility] Hunger Vital Sign Worried About Running Out of Food in the Last Year: Never true Ran Out of Food in the Last Year: Never true Transportation Needs: No Transportation Needs (05/18/2022) Received from [facility] PRAPARE - Transportation Lack of Transportation (Medical): No Lack of Transportation (Non-Medical): No Housing Stability: Unknown (05/18/2022) Received from [facility] Housing Stability Vital Sign Unable to [...] 82. I also reviewed external records from [facility]. I discussed their care with none. Consideration for escalation of care with: Admission/observation discussed case with Dr. 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 and she has normal range of motion to the lower extremities but she has severe disease to the lower extremities will heparinize or admit her to [facility] in case she needs an emergent [...] to contact the dictating provider for clarification.) Bernie Cutler APRN - SCHOOL NURSE (electronically signed) Emergency Medicine Provider SEBASTIAN Herrera CNP 04/03/24 223 [facility] 04-03-2024 Physician Emergency department Note Emergency Department Encounter [facility] Patient: Mel Pop [...] consulted recommends heparin drip and transferred to [facility], 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 Patient admitted to [facility]. Patient in agreement with plan. Diagnostics [...] [facility] Winifred Cornell DO 04/06/24 1623 [facility] Work Phone: 07-27-2023 History of Present illness Narrative [facility] [address] [place] [address] [address] [facility] [address] Dept: [phone] Dept Mel Pop 1940 [id number] 07/27/2023 HISTORY OF PRESENT ILLNESS: Mel is [...] improve. Electronically signed by Ming Weinberg MD [facility] Department of Orthopedic surgery 07/27/2023 5:21 PM Voice recognition was used for portions of this note and although it was reviewed prior to signing some incorrect words or phrases could be present. documented in this encounter [facility] 07-06-2022 Miscellaneous Notes PATIENT INFORMATION Record ID: [id number] Patient Name: Mel [facility]: [facility] [place]: [facility] Attending: Iwona Chu Center: Internal Medicine and Geriatrics INSTRUCTIONS All Clear SN to remind patient of next upcoming appointment date, time, location All Clear All Clear All Clear SURVEY INFORMATION Medical/Nurse Research Engineer Marine Equipment: Inés Tubbs 1. Your discharge instructions are [...] (Standard Question) No documented in this encounter [facility] 06-29-2022 Note HNO ID: [id number] Author: Joana Tolbert [facility] Service: Pharmacy Author Type: Pharmacist [...] Your Medications These medications were sent to [facility] [address] [place] [address] Hours: Tuesday-Tuesday, 8am-4:30pm apixaban 5 mg (74 tabs) ascorbic acid (vitamin C) 500 mg tablet bacitracin 500 unit/gram ointment guaiFENesin 600 mg 12 hr tablet HYDROcodone-acetaminophen 5-325 mg per tablet lactobacillus rhamnosus 10 billion cell capsule metoprolol tartrate (short acting) [address] 40 mg tablet sucralfate 1 gram tablet [facility] 06-29-2022 Note HNO ID: [id number] Author: Kassidy Mejia RN Service: Care Management [...] needs and plan for meeting these needs: [facility] HANDOFF COMMUNICATION: TRANSPORTATION ARRANGEMENTS: Transportation Arrangements: Car ADDITIONAL CONTACT RESOURCES: [facility] was able to approve and deliver home O2. SIGNATURE: Kassidy Mejia RN PATIENT NAME: Mel Castillo DATE: June 29, 2022 TIME: 12:38 PM PAGER/CONTACT #: [phone] [facility] 06-28-2022 Note HNO ID: [id number] Author: Iwona Chu DO Service: Hospital Medicine Author Type: Physician Type: Progress Notes Filed: 06/28/2022 8:58 PM Note Text: Needs O2 arranged before discharge [facility] 06-28-2022 Note HNO ID: [id number] Author: Irene Han RN Service: Care Management [...] In Person (verbalized understanding) Referral sent to [facility] for home going O2. Awaiting ambulatory pox to be completed. Plan to return home with family support and HHC through [facility]. Family to transport. Will need home O2/HC orders, prior to dc. IMM completed. UPDATE @ 1435: [facility] is outside of the patient's service area. Additional DMR referrals sent to [facility] and [facility]; awaiting response. Will need accepting DMR provider and home O2 delivery, prior to discharge. Oxygen/HC orders in [facility]. SIGNATURE: Irene Han RN PATIENT NAME: Mel Castillo DATE: June 28, 2022 TIME: 1:58 PM PAGER/CONTACT #: [phone] [facility] 06-28-2022 Note HNO ID: [id number] Author: Iwona Chu DO Service: Hospital Medicine [...] micropuncture needle and serially upsized to a 5-Georgian sheath. A venogram was then performed, which [...] time, the sheath was upsized to an 8-Georgian sheath. An intravascular ultrasound was performed. This [...] [facility] 06-27-2022 Note HNO ID: [id number] Author: Iwona Chu DO Service: Hospital Medicine [...] micropuncture needle and serially upsized to a 5-Georgian sheath. A venogram was then performed, which [...] time, the sheath was upsized to an 8-Georgian sheath. An intravascular ultrasound was performed. This [...] [facility] 06-26-2022 Note HNO ID: [id number] Author: Iwona Chu DO Service: Hospital Medicine [...] micropuncture needle and serially upsized to a 5-Georgian sheath. A venogram was then performed, which [...] time, the sheath was upsized to an 8-Georgian sheath. An intravascular ultrasound was performed. This [...] the sheath was then pulled On anticoagulant: chrisqudiana # PAD CTA abd/pel 06/16/22 Occlusion of [...] [facility] 06-25-2022 Note HNO ID: [id number] Author: Heron Ayers MD Service: Hospital Medicine [...] 2 TIMES DAILY Given, 06/25 0841 06/24/22 18107/02/22 0859 06/16/221944 vte current anticoag therapy ([place], [place]) 06/16/221944 activity - mobilize patient ([place], [place]) VTE Prophylaxis: VTE prophylaxis appropriate Disposition: Home Plan of care discussed with: Provider, RN, Patient SIGNATURE: Heron Ayers MD PATIENT NAME: Mel Castillo DATE: June 25, 2022 TIME: 12:03 PM etx [id number] [facility] 06-25-2022 Note HNO ID: [id number] Author: Kassidy Mejia RN Service: Care Management [...] 25, 2022 TIME: 11:30 AM PAGER/CONTACT #: [phone] [facility] 06-24-2022 Note HNO ID: [id number] Author: Richie Yi MD Service: General Internal Medicine Author Type: Physician Type: Progress Notes Filed: 06/24/2022 6:34 PM Note Text: DEPARTMENT OF HOSPITAL MEDICINE PROGRESS NOTE SERVICE DATE: 06/23/2022 SERVICE TIME: 7:19 PM Hospital Medicine/Primary Attending: Richie Yi MD NIGHT AND WEEKEND COVERAGE: [place] COVERAGE: After 7pm, please call cross cover pager #[id number] Subjective Patient was seen today. She is [...] 10 mg ORAL 2 TIMES DAILY Ordered 06/24/221812 07/02/22 0859 06/24/22 1730 heparin iv infusion 25,000 units in NaCl 0.45% 250 mL STANDARD NOMOGRAM (Heparin Infusion + Bolus for Subtherapeutic PTTAC) 0-30 mL/hr See Ike for full Linked Orders Report. 0-3,000 Units/hr INTRAVENOUS CONTINUOUS Rate Verify, 06/24 1730 06/24/22 1729 06/25/22 0300 06/16/221944 vte current anticoag therapy ([place], [place]) 06/16/221944 activity - mobilize patient ([place] VTE Prophylaxis: VTE prophylaxis appropriate Disposition: To be determined Plan of care discussed with: Provider, RN, Patient SIGNATURE: Richie Yi MD PATIENT NAME: Mel Castillo DATE: June 23, 2022 TIME: 7:19 PM etx [id number] [facility] 06-24-2022 Note HNO ID: [id number] Author: SHAQUILLE Kaye Service: Care Management Author Type: Commercial Roofing Estimator Type: Care Mgt Progress Note Filed: 06/24/2022 [...] 24, 2022 TIME: 1:02 PM PAGER/CONTACT #: [phone] [facility] 06-23-2022 Note HNO ID: [id number] Author: Richie Yi MD Service: General Internal Medicine Author Type: Physician Type: Progress Notes Filed: 06/23/2022 7:28 PM Note Text: DEPARTMENT OF HOSPITAL MEDICINE PROGRESS NOTE SERVICE DATE: 06/23/2022 SERVICE TIME: 7:19 PM Hospital Medicine/Primary Attending: Richie Yi MD NIGHT AND WEEKEND COVERAGE: [place] COVERAGE: After 7pm, please call cross cover pager #[phone] Subjective Patient was seen today. She is [...] 1028 -- 06/16/221944 vte current anticoag therapy ([place]) 06/16/221944 activity - mobilize patient ([place] VTE Prophylaxis: VTE prophylaxis appropriate Disposition: To be determined Plan of care discussed with: Provider, RN, Patient SIGNATURE: Richie Yi MD PATIENT NAME: Mel Castillo DATE: June 23, 2022 TIME: 7:19 PM etx [id number] [facility] 06-23-2022 Note HNO ID: [id number] Author: Kassidy Mejia RN Service: Care Management Author Type: Registered Nurse Type: Care Mgt Progress Note Filed: 06/23/2022 4:00 PM Note Text: CARE MANAGEMENT PROGRESS NOTE SERVICE DATE: 06/23/2022 SERVICE TIME: 3:55 PM LOS: 7 days Spoke with pt at the bedside. Discussed SNF placement. Auth obtained for [facility]- pt would be responsible for copay 50% of cost per day for days 1-100. Pt refusing SNF at this time. Pt would like to d/c home with her son and dtr-in-law to ([address] [place] [address]). [facility]- Referrals sent. Pt may need home O2- await ambulatory pulse ox. Family likely able to transport at d/c. CM to follow. SIGNATURE: Kassidy Mejia RN PATIENT NAME: Mel Castillo DATE: June 23, 2022 TIME: 3:53 PM PAGER/CONTACT #: [phone] [facility] 06-22-2022 Note HNO ID: [id number] Author: Dwayne Zaidi MD Service: Hospital Medicine Author Type: Physician Type: Progress Notes Filed: 06/22/2022 6:47 PM Note Text: DEPARTMENT OF HOSPITAL MEDICINE PROGRESS NOTE SERVICE DATE: 06/22/2022 SERVICE TIME: 6:42 PM Hospital Medicine/Primary Attending: Dwayne Zaidi MD NIGHT AND WEEKEND COVERAGE: After 7pm please page [phone] CHIEF COMPLAINT: Follow-up for acute left lower [...] bowel sounds normally heard, no mass palpable NURSING STAFF DEVELOPMENT COORDINATOR- cranial nerves 2 to 12 grossly intact, [...] injection (PROTONIX) 40 mg INTRAVENOUS BID AC (06) ascorbic acid (vitamin C) 500 mg tab(s) [...] [facility] 06-22-2022 Note HNO ID: [id number] Author: Kassidy Mejia RN Service: Care Management Author Type: Registered Nurse Type: Care Mgt Progress Note Filed: 06/22/2022 10:15 AM Note Text: CARE MANAGEMENT PROGRESS NOTE SERVICE DATE: 06/22/2022 SERVICE TIME: 10:15 AM LOS: 6 days IMM Follow Up Copy Given: Yes Copy given to:: Patient Method: In Person (verbal) [facility] is able to accept pt. Precert tasked. Pt will need cot for transport. CM to follow. SIGNATURE: Kassidy Mejia RN PATIENT NAME: Mel Castillo DATE: June 22, 2022 TIME: 10:14 AM PAGER/CONTACT #: [phone] [facility] 06-21-2022 Note HNO ID: [id number] Author: Dwayne Zaidi MD Service: Hospital Medicine Author Type: Physician Type: Progress Notes Filed: 06/21/2022 4:10 PM Note Text: DEPARTMENT OF HOSPITAL MEDICINE PROGRESS NOTE SERVICE DATE: 06/21/2022 SERVICE TIME: 4:04 PM Hospital Medicine/Primary Attending: Dwayne Zaidi MD NIGHT AND WEEKEND COVERAGE: After 7pm please page [phone] CHIEF COMPLAINT: Follow-up for acute left lower [...] bowel sounds normally heard, no mass palpable NURSING STAFF DEVELOPMENT COORDINATOR- cranial nerves 2 to 12 grossly intact, [...] [facility] 06-21-2022 Note HNO ID: [id number] Author: Kassidy Mejia RN Service: Care Management Author Type: Registered Nurse Type: Care Mgt Progress Note Filed: 06/21/2022 3:44 PM Note Text: CARE MANAGEMENT PROGRESS NOTE SERVICE DATE: 06/21/2022 SERVICE TIME: 3:41 PM LOS: 5 days Spoke with pt at the bedside. Pt states that she lives at home alone. PT/OT rec SNF. Pt would like [facility]- referral sent. Await acceptance. Pt will need precert when medically stable. Pt will need cot for transport. Cm to follow. SIGNATURE: Kassidy Mejia RN PATIENT NAME: Mel Castillo DATE: June 21, 2022 TIME: 3:41 PM PAGER/CONTACT #: [phone] [facility] 06-21-2022 Note HNO ID: [id number] Author: Primo Dodd APRN.SHAMIKA Service: Gastroenterology Author [...] [facility] 06-20-2022 Note HNO ID: [id number] Author: Acacia Hardin DO Service: General Surgery Author Type: Resident Type: Plan of Care Filed: 06/20/2022 1:40 PM Note Text: Plan of Care Dr. 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 Spoke with Dr. Wilson, clinical information systems director for Dr. Rodriguez, and she states these [...] oz) SpO2 97% BMI 26.94 kg/m? Acacia Katedaniaramy, 06/20/2022 1:36 PM [facility] 06-20-2022 Note HNO ID: [id number] Author: Dwayne Zaidi MD Service: Hospital Medicine Author Type: Physician Type: Progress Notes Filed: 06/20/2022 12:39 PM Note Text: DEPARTMENT OF HOSPITAL MEDICINE PROGRESS NOTE SERVICE DATE: 06/20/2022 SERVICE TIME: 12:35 PM Hospital Medicine/Primary Attending: Dwayne Zaidi MD NIGHT AND WEEKEND COVERAGE: After 7pm please page [phone] CHIEF COMPLAINT: Follow-up for acute left lower [...] bowel sounds normally heard, no mass palpable NURSING STAFF DEVELOPMENT COORDINATOR- cranial nerves 2 to 12 grossly intact, [...] 06/18/22 0416 06/17/22 0510 06/16/22 034 GLUC 92 115* 112* 84 122* NA [...] [facility] 06-19-2022 Note HNO ID: [id number] Author: Dwayne Zaidi MD Service: Hospital Medicine Author Type: Physician Type: Progress Notes Filed: 06/19/2022 4:33 PM Note Text: DEPARTMENT OF HOSPITAL MEDICINE PROGRESS NOTE SERVICE DATE: 06/19/2022 SERVICE TIME: 4:29 PM Hospital Medicine/Primary Attending: Dwayne Zaidi MD NIGHT AND WEEKEND COVERAGE: After 7pm please page [phone] CHIEF COMPLAINT: Follow-up for acute left lower [...] bowel sounds normally heard, no mass palpable NURSING STAFF DEVELOPMENT COORDINATOR- cranial nerves 2 to 12 grossly intact, [...] [facility] 06-18-2022 Note HNO ID: [id number] Author: Emanuel Hull MD Service: General Surgery [...] [facility] 06-18-2022 Note HNO ID: [id number] Author: Dwayne Zaidi MD Service: Hospital Medicine Author Type: Physician Type: Progress Notes Filed: 06/18/2022 5:37 PM Note Text: DEPARTMENT OF HOSPITAL MEDICINE PROGRESS NOTE SERVICE DATE: 06/18/2022 SERVICE TIME: 5:35 PM Hospital Medicine/Primary Attending: Dwayne Zaidi MD NIGHT AND WEEKEND COVERAGE: After 7pm please page [phone] CHIEF COMPLAINT: Follow-up for acute left lower [...] bowel sounds normally heard, no mass palpable NURSING STAFF DEVELOPMENT COORDINATOR- cranial nerves 2 to 12 grossly intact, [...] Labs 06/18/22 0416 06/17/22 0510 06/16/22 0826 06/16/22340 WBC 8.77 8.61 10.43 15.82* HB 8.5* [...] interval not displayed. BMP: Recent Labs 06/18/2241506/17/22 0506/16/22340 GLUC 112* 84 122* NA 133* 137 139 K 4.4 4.3 4.4 CHLOR 102 107* 104 CO2 21* 21* 18* ANION 10 9 17 BUN 25* 27* 35* CREAT 1.17* 0.99* 1.14* CHEM: Recent Labs 06/18/2241506/17/22 0510 06/16/22340 ALB -- -- 3.2* TPROT -- -- [...] [facility] 06-18-2022 Note HNO ID: [id number] Author: Kassidy Mejia RN Service: Care Management [...] 18, 2022 TIME: 3:46 PM PAGER/CONTACT #: [phone] [facility] 06-17-2022 Note HNO ID: [id number] Author: Eliza Parikh RN Service: Nursing Author Type: Registered Nurse Type: Nursing Progress Note Filed: 06/17/2022 7:24 PM Note Text: Pt to 4200 via bed. Pt tolerated well. [facility] 06-17-2022 Note HNO ID: [id number] Author: Eliza Parikh RN Service: Nursing Author Type: Registered Nurse Type: Nursing Progress Note Filed: 06/17/2022 4:35 PM Note Text: Report to [address] FRAGA [facility] 06-17-2022 Note HNO ID: [id number] Author: Efrain Ivey (miLibris) Service: Pharmacy Author Type: Salesperson Hearing Aids Type: Plan of Care Filed: 06/17/2022 2:16 PM Note Text: PHARMACY MEDICATION REVIEW Patient Name: Mel Castillo : 1940 The following medications were updated within the [facility] medication list: Medications ADDED to [facility] medication list amLODIPine (NORVASC) 10 mg tablet OTHER Yes Yes dexAMETHasone (DECADRON) 4 mg tablet OTHER Yes Yes lisinopril (ZESTRIL, PRINIVIL) 5 mg tablet OTHER Yes Yes RX filled via [facility] and verified with pt. herself Medications CHANGED on [facility] medication list na Medications REMOVED from [facility] medication list na Additional comments: I was able to talk with the pt. about her home medications. She states she takes the 3 RX medications recorded below. These 3 medications were added to her [facility] list. She has finished Paxlovid and a physician stopped Augmentin per pt. interview Required follow up for nursing. Medication history completed by Historian. No nursing follow up required. The below information represents the best possible medication history: Yes Medication history completed by: Salesperson Hearing Aids: Efrain Ivey (miLibris) Source of history: Patient: Reliability of source: Appears reliable, clearly identified: Medication name, Medication dose, Medication route, and Medication frequency and Pharmacy records: Epic e-script [facility] Medication nonadherence identified: No barriers noted Reconciliation completed: No, pharmacist not yet reviewed Patient interested in Bedside Delivery Services or using OP Pharmacy at discharge? No Preferred outpatient pharmacy: [id number] [place] [phone] - [phone] [id number] Allergies: Percocet [Oxycodone* Itching Prior to Admission [...] once daily. Facility-Administered Medications: None Efrain Ivey (Berry Picker Machine Operator) phone [phone] 06/17/2022 [facility] 06-17-2022 Note HNO ID: [id number] Author: Ladan Adame RN Service: Care Management [...] 17, 2022 TIME: 12:37 PM PAGER/CONTACT #: [phone] [facility] 06-17-2022 Note HNO ID: [id number] Author: Eliza Parikh RN Service: Nursing Author Type: Registered Nurse Type: Nursing Progress Note Filed: 06/17/2022 10:40 AM Note Text: Echo at bedside [facility] 06-16-2022 Note HNO ID: [id number] Author: Cirilo Alaniz APRN.RIDING COACH Service: Anesthesiology Author Type: Nurse Railroad Operator Type: Anesthesia Procedure Notes Filed: 06/16/2022 5:04 PM Note Text: ANESTHESIOLOGY PROCEDURE NOTE Airway General Information Procedure Start Time/Medication Administration: 06/16/2022 4:29 PM Patient location during procedure: OR Timeout Performed Pre-procedure: timeout performed Consent Obtained: Yes Patient identity confirmed: arm band and patient Staffing RIDING COACH: Cirilo Alaniz APRN.RIDING COACH Indications and Patient Condition Indications for airway management: anesthesia Preoxygenated: yes anesthesia circuit Method: asleep Difficult Mask: No Final Airway Details Final airway type: endotracheal airway Final Endotracheal Airway: ETT Cuffed: yes Successful intubation technique: video laryngoscopy Devices used: Lalina Endotracheal tube insertion site: oral Blade: Kit Blade size: #3 ETT size (mm): 7.0 Measured from: lips Measurement (cm): 21 Placement verified by: chest auscultation and capnometry Cormack-Lehane Classification: grade I - full view of glottis Number of attempts at approach: 1 Airway not difficult SIGNATURE: Cirilo Alaniz APRN.CRNA PATIENT NAME: Mel Castillo DATE: June 16, 2022 TIME: 5:03 PM CSN: [id number] [facility] 06-16-2022 Note HNO ID: [id number] Author: Jean Pierre Gamboa RPh Service: Pharmacy [...] patient. Signature: Jean Pierre Gamboa RPh Pager/Extension: [phone] [facility] 05-17-2022 History of [...] be seen in the emergency room at [facility] for probable admission for IV antibiotics and airway concern. Patient understands this and will leave shortly. Josiah Barnes MD Findings will be communicated to the referring physician via mail or electronic medical record. documented in this encounter [facility] 05-14-2022 Instructions Jared Velazquez PA-C - [...] Jared Velazquez PA-C documented in this encounter [facility] 05-14-2022 History of Present illness Narrative [...] which included preparing to see the patient, [id number] patient care, completing clinical documentation, performing a medically appropriate examination, counseling and educating the patient/family/caregiver, and ordering medications, tests, or procedures. 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 [facility] Diagnosis Acute bacterial sialadenitis- Primary Bashir's, angina [facility] Diagnosis Localized swelling, mass and lump, neck Swelling, mass, or lump in head and neck [facility] Diagnosis Localized swelling, mass and lump, neck Swelling, mass, or lump in head and neck [facility] Diagnosis Localized swelling, mass and lump, neck- Primary Swelling, mass, or lump in head and neck Localized swelling, mass and lump, neck Swelling, mass, or lump in head and neck [facility] Diagnosis Other specified soft tissue disorders [facility] Diagnosis Localized swelling, mass and lump, neck- Primary Swelling, mass, or lump in head and neck Localized swelling, mass and lump, neck Swelling, mass, or lump in head and neck [facility] Diagnosis Abnormal findings on diagnostic imaging of other specified body structures Pain in left leg [facility] 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[facility]* Diagnosis Other specified soft tissue disorders- Primary Other specified soft tissue disorders [facility]* Diagnosis Abnormal findings on diagnostic imaging of other specified body structures- Primary Pain in left leg Abnormal findings on diagnostic imaging of other specified body structures Pain in left leg [facility]* Diagnosis Peripheral arterial disease (HCC)- Primary Unspecified peripheral vascular disease Right leg pain Pain in soft tissues of limb Peripheral arterial disease (HCC) Unspecified peripheral vascular disease Right leg weakness Muscle weakness (generalized) Atrial fibrillation, unspecified type (HCC) Ischemic leg Unspecified circulatory system disorder [facility]* Diagnosis Deep vein thrombosis (DVT) of lower extremity, unspecified chronicity, unspecified laterality, unspecified vein (HCC)- Primary [facility]* Diagnosis Atrial fibrillation, unspecified type (HCC) Acute venous embolism and thrombosis of deep vessels of proximal end of right lower extremity (HCC) [facility]* Diagnosis Acute deep vein thrombosis (DVT) of iliac vein of right lower extremity (HCC)- Primary PAD (peripheral artery disease) (HCC) Unspecified peripheral vascular disease [facility]* Diagnosis Deep vein thrombosis (DVT) of lower extremity, unspecified chronicity, unspecified laterality, unspecified vein (HCC) Atrial fibrillation, unspecified type (HCC) Acute venous embolism and thrombosis of deep vessels of proximal end of right lower extremity (HCC) [facility]* Diagnosis Atrial fibrillation, unspecified type (HCC) Acute venous embolism and thrombosis of deep vessels of proximal end of right lower extremity (HCC) [facility]* Diagnosis Atrial fibrillation, unspecified type (HCC) Acute venous embolism and thrombosis of deep vessels of proximal end of right lower extremity (HCC) [facility]* Diagnosis Paroxysmal atrial fibrillation (HCC) Atrial fibrillation [facility] Diagnosis Atrial fibrillation, unspecified [...] or 3b CKD (HCC) 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 current use of anticoagulant therapy Nicotine use disorder Tobacco use disorder Abnormal echocardiogram Nonspecific (abnormal) findings on radiological and other examination of other intrathoracic organs Left atrial mass documented in this encounter [facility] note* Diagnosis Retinal detachment, right- Primary Unspecified retinal detachment Vision loss of right eye Unqualified visual loss, one eye Acute intractable headache, unspecified headache type Visual disturbance, subjective Unspecified subjective visual disturbance Vision loss of right eye Unqualified visual loss, one eye Visual disturbance, subjective Unspecified subjective visual disturbance documented in this encounter [facility] note* Diagnosis 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 Hemorrhagic choroidal detachment Dislocation of intraocular lens, initial encounter [facility] Diagnosis 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 Hemorrhagic choroidal detachment [facility] Diagnosis 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 Hemorrhagic choroidal detachment Dislocation of intraocular lens, initial encounter Hemorrhagic choroidal detachment of right eye Hemorrhagic choroidal detachment [facility] Diagnosis 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 Hemorrhagic choroidal detachment Hemorrhagic choroidal detachment of right eye Hemorrhagic choroidal detachment [facility]* Diagnosis Postoperative eye state- Primary Other states following surgery of eye and adnexa Hemorrhagic choroidal detachment of right eye Hemorrhagic choroidal detachment Pseudophakia, right eye Lens replaced by other means Subluxation of right lens Subluxation of lens [facility] Diagnosis Paroxysmal atrial fibrillation (HCC)- Primary Atrial fibrillation Paroxysmal atrial fibrillation (HCC) Atrial fibrillation documented in this encounter [facility] note* Diagnosis Postoperative eye state Other states following surgery of eye and adnexa Hemorrhagic choroidal detachment of right eye Hemorrhagic choroidal detachment Pseudophakia, right eye Lens replaced by other means Subluxation of right lens Subluxation of lens Hemorrhagic choroidal detachment of right eye Hemorrhagic choroidal detachment [facility]* Diagnosis Post-operative state- Primary Other postprocedural status [facility] Diagnosis Postoperative eye state Other states following surgery of eye and adnexa Hemorrhagic choroidal detachment of right eye Hemorrhagic choroidal detachment Pseudophakia, right eye Lens replaced by other means Subluxation of right lens Subluxation of lens [facility]* Diagnosis Aspiration pneumonitis (CMS/HCC) (HCC)- Primary Pneumonitis due to inhalation of food or vomitus Aspiration pneumonitis (CMS/HCC) (HCC) Pneumonitis due to inhalation of food or vomitus Vomiting and diarrhea LORENZA (acute kidney injury) (HCC) [facility] Diagnosis Acute deep vein thrombosis (DVT) of iliac vein of right lower extremity (HCC)- Primary PAD (peripheral artery disease) (HCC) Unspecified peripheral vascular disease [facility] Diagnosis Postoperative eye state Other states following surgery of eye and adnexa Hemorrhagic choroidal detachment of right eye Hemorrhagic choroidal detachment Pseudophakia, right eye Lens replaced by other means Subluxation of right lens Subluxation of lens documented in this encounter [facility] note* Diagnosis 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 Hemorrhagic choroidal detachment Right retinal detachment Unspecified retinal detachment Postoperative eye state Other states following surgery of eye and adnexa Pseudophakia, right eye Lens replaced by other means Subluxation of right lens Subluxation of lens documented in this encounter [facility] noteNo assessment information availableWKettering Health Work Phone: Evaluation note* Diagnosis PAD (peripheral artery disease) (HCC)- Primary Unspecified peripheral vascular disease Skin ulcer of toe of right foot, limited to breakdown of skin (HCC) [facility] Diagnosis Critical limb ischemia of right lower extremity (HCC)- Primary [facility] Diagnosis Pre-op evaluation- Primary Skin ulcer of right great toe (HCC) Critical limb ischemia of right lower extremity (HCC) [facility]* Diagnosis Skin ulcer of toe of right foot, limited to breakdown of skin (HCC)- Primary PAD (peripheral artery disease) (HCC) Unspecified peripheral vascular disease Aftercare following surgery of the circulatory system Aftercare following surgery of the circulatory system, NEC [facility] Diagnosis Skin ulcer of toe of right foot, limited to breakdown of skin (HCC) PAD (peripheral artery disease) (HCC) Unspecified peripheral vascular disease Aftercare following surgery of the circulatory system Aftercare following surgery of the circulatory system, NEC documented in this encounter [facility] note* Diagnosis Aftercare following surgery of the circulatory system- Primary Aftercare following surgery of the circulatory system, NEC PAD (peripheral artery disease) (HCC) Unspecified peripheral vascular disease documented in this encounter [facility] note* Diagnosis 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 Hemorrhagic choroidal detachment documented in this encounter [facility] note* Diagnosis Right retinal detachment- Primary Unspecified retinal detachment Hemorrhagic choroidal detachment of right eye Hemorrhagic choroidal detachment Pseudophakia, right eye Lens replaced by other means documented in this encounter [facility] for referral (narrative)No reason for referral information availableWKettering Health Work Phone: Reason for visit Narrative* Imaging (Routine) - Closed Specialty Diagnoses / Procedures Referred By Contac t Referred To Contact Cardiology Diagnoses Paroxysmal atrial fibrillation (HCC) Procedures Transthoracic echocardiogram (TTE) complete with contrast, bubble, strain, and 3D PRN IA ECHO TTHRC R-T 2D W/WOM-MODE COMPL SPEC&COLR D IA TTE W OR WO FOL WCON,Jared De La Garza MD [address] [place] [phone] Phone: tel: fax: Referral ID Status Reason Start Date Expiration Date Visits Re quested Visits Authorized [id number] Closed 04/20/2024 04/20/2025 1 1 [facility] Narrative* Auth/Cert (Routine) Specialty Diagnoses / Procedures Referred By Contac t Referred To Contact Diagnoses Aspiration pneumonitis (CMS/HCC) (HCC) LORENZA (acute kidney injury) (HCC) Vomiting and diarrhea Procedures . Abbi Long DO [address] [place] [address] Phone: tel: fax: [facility] [address] [address] [place] [address] Phone: tel: Referral ID Status Reason Start Date Expiration Date Visits Re quested Visits Authorized [id number] 1 1 [facility] for visit Narrative* Auth/Cert [...] CATH RS&I CHG AORTOGRAPHY ABDOMINAL SERIALOGRAPHY RS&I IA INTRODUCTION CATHETER AORTA IA REVSC OPN/PRG FEM/POP W/ANGIOPLASTY UNI IA REVSC OPN/PRQ TIB/PAMELA W/ANGIOPLASTY UNI IA REVSC OPN/PRQ TIB/PAMELA W/STNT/ANGIOP SM VSL IA REVSC OPN/PRQ FEM/POP W/STNT/ANGIOP SM VSL AORTOILIAC ANGIOGRAPHY, RIGHT LOWER EXTREMITY ANGIOGRAPHY WITH RUNOFF, POSSIBLE SUPERFICIAL FEMORAL ARTERY/POPLITEAL/TIBIAL ANGIOPLASTY/STENTING Kristyn Hilario MD [address] [place] [address] Phone: tel: fax: [facility] [address] [facility] [place] [address] Phone: tel: Referral ID Status Reason Start Date Expiration Date Visits Re quested Visits Authorized [id number] 1 1 [facility] [employer] for visit Narrative* Imaging (Routine) - Closed Specialty Diagnoses / Procedures Referred By Elvin leyva Referred To Contact Vascular Surgery / Radiology Diagnoses Skin ulcer of toe of right foot, limited to breakdown of skin (HCC) PAD (peripheral artery disease) (HCC) Aftercare following surgery of the circulatory system Procedures Vascular US lower extremity arterial duplex right with MICHELLE Kristyn Hilario MD [address] [place] [address] Phone: tel: fax:[phone] [facility] [address] [place] [phone] Phone: tel: fax: Referral ID Status Reason Start Date Expiration Date Visits Re quested Visits Authorized [id number] Closed 12/05/2024 12/05/2025 1 1 [facility] Discharge Instructions * Attachments The following attachments cannot be sent through Care Everywhere. * Pulp-Space Infection (Tamazight) documented in this encounter* Instructions* Tiffany Zhu [...] Documents on File Type Date Recorded Patient [place] Wrapper Maker Expl anation Power of Lawn Care Specialist 04/06/2024 10:04 AM Date Activated Date Inactivated [...] Documents on File Type Date Recorded Patient [place] Wrapper Maker Expl anation Power of Lawn Care Specialist 04/16/2024 1:26 PM Power of Lawn Care Specialist 04/06/2024 10:04 AM Healthcare Agents on File [...] Documents on File Type Date Recorded Patient [place] Wrapper Maker Expl anation Power of Lawn Care Specialist 04/16/2024 1:26 PM Power of Lawn Care Specialist 04/06/2024 10:04 AM Date Activated Date Inactivated Comments 04/04/2024 5:46 AM 04/13/2024 7:54 PM Question Answer Comments ICU transfer: Yes Intubation: No Healthcare Agents on File Name Relationship Healthcare Agent Relationshi p Communication Nadira Castillo Child First Alternat e Health Care Agent Damaris Villafana Friend Second Alternate Health Care Agent Healthcare Agents on File Name Relationship Healthcare Agent Relationshi p Communication [place]ace[place]on/ Fidel Castillo Child First Alternat e Health Care Agent Damaris Villafana Friend Second Alternate Health Care Agent Documents on File Type Date Recorded Patient [place] Wrapper Maker Expl anation Advance Directive(s) 06/27/2024 12:58 PM [...] Documents on File Type Date Recorded Patient [place] Wrapper Maker Expl anation Advance Directive(s) 06/27/2024 12:58 PM [...] Documents on File Type Date Recorded Patient [place] Wrapper Maker Expl anation DNR (Do Not Resuscitate) 07/13/2024 10:35 AM Power of Lawn Care Specialist 04/16/2024 1:26 PM Power of Lawn Care Specialist 04/06/2024 10:04 AM Date Activated Date Inactivated [...] Documents on File Type Date Recorded Patient [place] Wrapper Maker Expl anation DNR (Do Not Resuscitate) 07/13/2024 10:35 AM Power of Lawn Care Specialist 04/16/2024 1:26 PM Power of Lawn Care Specialist 04/06/2024 10:04 AM Date Activated Date Inactivated [...] First Alternate Health Care Agent Nadira Castillo Cfiuchsv-hl-hio First Alternat e Health Care Agent Healthcare Agents on File Name Relationship Healthcare Agent Relationship Communication Damaris DO NOT CALL-TERMINALLY ILL [place] Friend First Alternate Health Care Agent Nadira Castillo Dejcpuxv-cu-fts First Alternat e Health Care Agent Healthcare Agents on File Name Relationship Healthcare Agent Relationship Communication Damaris DO NOT CALL-TERMINALLY ILL [place] Friend First Alternate Health Care Agent Nadira Catsillo Rcuuhxel-lu-eol First Alternat e Health Care Agent Date Activated Date Inactivated Comments 08/03/2024 10:17 AM 08/16/2024 4:47 PM Healthcare Agents on File Name Relationship Healthcare Agent Relationship Communication Damaris DO NOT CALL-TERMINALLY ILL [place] Friend First Alternate Health Care Agent Nadira Castillo Bbftumoi-xl-xsu First Alternat e Health Care Agent Healthcare Agents on File Name Relationship Healthcare Agent Relationship Communication Damaris DO NOT CALL-TERMINALLY ILL [place] Friend First Alternate Health Care Agent Nadira Castillo Bzmtvqrd-pd-czi First Alternat e Health Care Agent Healthcare Agents on File Name Relationship Healthcare Agent Relationship Communication Damaris DO NOT CALL-TERMINALLY ILL [place] Friend First Alternate Health Care Agent Nadira Castillo Emwktwqs-xf-uyn First Alternat e Health Care Agent Healthcare Agents on File Name Relationship Healthcare Agent Relationshi p Communication Nadira Castillo Tybcgtwy-zl-iem First Alternat e Health Care Agent Summary [...] gland swelling Procedures CONSULT TO ENT OFFICE/OUTPATIENT [facility] 60-74 MINUTES Jared Velazquez PA-C [address] [place] [address] Referral ID Status Reason Start Date Expiration Date Visits Requested Visits Authorized [id number] Authorized PCP Requested Referral 2 05/14/2023 1 1 Specialty Diagnoses / Procedures Referred By Elvin leyva Referred To Contact Radiology Diagnoses Localized swelling, mass and lump, neck Procedures CT soft tissue neck w IV contrast Jared Evans MD [address] [place] [phone] Referral ID Status Reason Start Date Expiration Date Visits Re quested Visits Authorized [id number] Closed 03/08/2023 04/07/2023 1 1 Specialty Diagnoses / Procedures Referred By Elvin leyva Referred To Contact Cardiology Diagnoses Other specified soft tissue disorders Procedures Vascular US lower extremity venous duplex left Jared Evans MD [address] [place] [phone] Referral ID Status Reason Start Date Expiration Date V isits Requested Visits Authorized [id number] Pending Review 05/24/2023 05/23/2024 1 1 Specialty Diagnoses / Procedures Referred By Elvin leyva Referred To Contact Radiology Diagnoses Abnormal findings on diagnostic imaging of other specified body structures Pain in left leg Procedures MR tibia fibula left w and wo IV contrast Jared Evans MD [address] [place] [address] Referral ID Status Reason Start Date Expiration Date Visits Re quested Visits Authorized [id number] Closed 06/01/2023 05/31/2024 1 1 Health Concerns Infection Onset Date Last Indicated Resolved Time COVID-19 Confirmed Comment:First positive per [facility]/ODRS system 06/02/2022. 06/16/2022 06/16/2022 06/19/2022 5:[address] Chief Complaint and Reason for Visit Chief Complaint Admit Date LABWORK August 20, 2024 5 :22am LABWORK September 03, 2024 5:00am DETENTION LAB WORK September 03 8:18am DETENTION LAB WORK September 10 5:00am Chief Complaint Admit Date LABWORK August 20, 2024 5 :22am LABWORK September 03, 2024 5:00am DETENTION LAB WORK September 03 8:18am DETENTION LAB WORK September 10 5:00am DETENTION LAB WORK September 17, 2024 4: 00am Chief Complaint Admit Date LABWORK August 20, 2024 5 :22am LABWORK September 03, 2024 5:00am DETENTION LAB WORK September 03 8:18am DETENTION LAB WORK September 10 5:00am DETENTION LAB WORK September 17, 2024 4: 00am DETENTION LAB WORK October 08, 2024 5 :00am Additional Source Comments Reason for Visit (unrecogniz ed section and content) Reason Comments Post-op (Ophthalmology) Right Eye Specialty Diagnoses / Procedures Referred By Elvin leyva Referred To Contact HOSP INPATIENT Diagnoses Retinal detachment Acute retinal detachment Retinal detachment Procedures EVAL AND TREAT OT H[facility] [address] [place] [address] Referral ID Status Reason Start Date Expiration Date Visits Re quested Visits Authorized [id number] 1 1 Reason Comments Hemorrhagic choroidal detachment [...] gland swelling Procedures CONSULT TO ENT OFFICE/OUTPATIENT [facility] 60-74 MINUTES Jared Velazquez PA-C [address] [place] [address] Referral ID Status Reason Start Date Expiration Date V isits Requested Visits Authorized [id number] Closed PCP Requested Referral 05/14/2022 05/14/2023 1 1 Reason Comments Follow Up Gyant interaction - F/U - attempt made. No answer. Reason Comments Follow Up Phone Call All Clear Specialty Diagnoses / Procedures Referred By Elvin leyva Referred To Contact Radiology Diagnoses Localized swelling, mass and lump, neck Procedures CT soft tissue neck w IV contrast Jared Evans MD [address] [place] [phone] Referral ID Status Reason Start Date Expiration Date Visits Re quested Visits Authorized [id number] Closed 03/08/2023 04/07/2023 1 1 Specialty Diagnoses / Procedures Referred By Elvin leyva Referred To Contact Cardiology Diagnoses Other specified soft tissue disorders Procedures Vascular US lower extremity venous duplex left Jared Evans MD [address] [place] [phone] Referral ID Status Reason Start Date Expiration Date V isits Requested Visits Authorized [id number] Pending Review 05/24/2023 05/23/2024 1 1 Specialty Diagnoses / Procedures Referred By Elvin leyva Referred To Contact Radiology Diagnoses Abnormal findings on diagnostic imaging of other specified body structures Pain in left leg Procedures MR tibia fibula left w and wo IV contrast Jared Evans MD [address] [place] [phone] Referral ID Status Reason Start Date Expiration Date Visits Re quested Visits Authorized [id number] Closed 06/01/2023 05/31/2024 1 1 Reason Comments New Patient Mass left LE Specialty Diagnoses / Procedures Referred By Contac t Referred To Contact Sports Medicine Diagnoses Pain in leg, unspecified Jared Evans MD [address] [place] [address] [place] [address] [facility] [place] [address] Referral ID Status Reason Start Date Expiration Date Visits Re quested Visits Authorized [id number] Closed 07/06/2023 07/05/2024 1 1 Reason Comments Numbness Leg Swelling Specialty Diagnoses / Procedures Referred By Contac t Referred To Contact Diagnoses Right leg pain Peripheral arterial disease (HCC) Right leg weakness Atrial fibrillation, unspecified type (HCC) Procedures . Pratibha Avelar DO [address] [place] [address] [phone] Referral ID Status Reason Start Date Expiration Date Visits Re quested Visits Authorized [id number] 1 1 Reason Comments Follow-up 1st follow up RLE me chanical thrombectomy 04/06/24 (Krzysztof) Reason Onset Date Comments Med Refill 04/27/2024 Specialty Diagnoses / Procedures Referred By Contac t Referred To Contact Diagnoses [I63.9] - Cerebral infarction [facility] Taylor Pat[address]ño [address] [place] [address] Referral ID Status Reason Start Date Expiration Date V isits Requested Visits Authorized [id number] New Request 06/20/2024 08/19/2024 Reason Comments Eye Problem Pt reports blurred v ision, dizziness, and headache. LNW 07/04/24 @ 2130. Hx of strokes x 2, HTN, Afib, and right eye retinal detachment. Specialty Diagnoses / Procedures Referred By Contac t Referred To Contact Diagnoses Retinal detachment, right Vision loss of right eye Procedures . Silvio Peres MD [address] [place] [address] Phone: tel: fax: [facility] [address] [place] [address] Phone: tel: Referral ID Status Reason Start Date Expiration Date Visits Re quested Visits Authorized [id number] 1 1 Reason Comments Eye Pain Right [...] OF VITREOUS, CHOROIDAL FLUID, PARS PLANA APPROACH [facility] [address] [address] Referral ID Status Reason Start Date Expiration Date Visits Re quested Visits Authorized [id number] 1 1 Reason Comments 1 week post [...] Vomiting and diarrhea Procedures . Abbi Long, [address] [place] [address] Phone: tel: fax: [facility] [address] [address] [place] [phone] Phone: tel: Referral ID Status Reason Start Date Expiration Date Visits Re quested Visits Authorized [id number] 1 1 Reason Comments Follow-up 3 month follow up, P AD check ([facility] [place]) Reason Comments Post-op (Ophthalmology) Right Eye 1 marisela h Reason Comments Post op OD Reason Comments Follow-up R leg pain with grea t toe wound-PVR and CTA w runoff 03/2024 Reason Comments Follow-up 1st follow up RLE an juliana, possible SFA/pop/tib angioplasty/stenting 11/22/24 Reason Comments 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; 2nd follow up RLE angio, SFA/pop/tib angioplasty/stenting 11/22/24 ([place] [facility] [place] [phone]) Reason Comments Post-op (Ophthalmology) Right Eye Retinal Detachment OD Eye Crusting OD In the mornings INFORMATION SOURCE (unrecogn ized section and content) DATE CREATED AUTHOR 03/13/2020 [facility] DATE CREATED AUTHOR AUTHOR'S ORGANIZ ATION 06/30/2022 [facility] DATE CREATED AUTHOR AUTHOR'S ORGANIZ ATION 07/10/2024 [facility] DATE CREATED AUTHOR AUTHOR'S ORGANIZ ATION 12/14/2024 [facility] DATE CREATED AUTHOR AUTHOR'S ORGANIZ ATION 01/05/2025 [facility] DATE CREATED AUTHOR AUTHOR'S ORGANIZ ATION 01/09/2025 [facility] DATE CREATED AUTHOR AUTHOR'S ORGANIZ ATION 02/16/2025 [facility] Source Comments (unrecognize d section and content) In the event this informatio n is protected by the Federal Confidentiality of Alcohol and Drug Abuse Patient Records regulations: The Federal rules restrict any use of the information to criminally investigate or prosecute any alcohol or drug abuse patient.[facility] the event this information is protected by the Federal Confidentiality of Alcohol and Drug Abuse Patient Records regulations: The Federal rules restrict any use of the information to criminally investigate or prosecute any alcohol or drug abuse patient.[facility] HospitalIn the event this information is protected by the Federal Confidentiality of Alcohol and Drug Abuse Patient Records regulations: The Federal rules restrict any use of the information to criminally investigate or prosecute any alcohol or drug abuse patient.[facility] Hospital[facility] the event this information is protected by the Federal Confidentiality of Alcohol and Drug Abuse Patient Records regulations: The Federal rules restrict any use of the information to criminally investigate or prosecute any alcohol or drug abuse patient.[facility] Hospital[facility] the event this information is protected by the Federal Confidentiality of Alcohol and Drug Abuse Patient Records regulations: The Federal rules restrict any use of the information to criminally investigate or prosecute any alcohol or drug abuse patient.[facility] HospitalIn the event this information is protected by the Federal Confidentiality of Alcohol and Drug Abuse Patient Records regulations: The Federal rules restrict any use of the information to criminally investigate or prosecute any alcohol or drug abuse patient.[facility] Hospital[facility] the event this information is protected by the Federal Confidentiality of Alcohol and Drug Abuse Patient Records regulations: The Federal rules restrict any use of the information to criminally investigate or prosecute any alcohol or drug abuse patient.[facility] HospitalIn the event this information is protected by the Federal Confidentiality of Alcohol and Drug Abuse Patient Records regulations: The Federal rules restrict any use of the information to criminally investigate or prosecute any alcohol or drug abuse patient.[facility] HospitalIn the event this information is protected by the Federal Confidentiality of Alcohol and Drug Abuse Patient Records regulations: The Federal rules restrict any use of the information to criminally investigate or prosecute any alcohol or drug abuse patient.[facility] HospitalIn the event this information is protected by the Federal Confidentiality of Alcohol and Drug Abuse Patient Records regulations: The Federal rules restrict any use of the information to criminally investigate or prosecute any alcohol or drug abuse patient.[facility] HospitalIn the event this information is protected by the Federal Confidentiality of Alcohol and Drug Abuse Patient Records regulations: The Federal rules restrict any use of the information to criminally investigate or prosecute any alcohol or drug abuse patient.[facility] HospitalIn the event this information is protected by the Federal Confidentiality of Alcohol and Drug Abuse Patient Records regulations: The Federal rules restrict any use of the information to criminally investigate or prosecute any alcohol or drug abuse patient.[facility] HospitalIn the event this information is protected by the Federal Confidentiality of Alcohol and Drug Abuse Patient Records regulations: The Federal rules restrict any use of the information to criminally investigate or prosecute any alcohol or drug abuse patient.[facility] HospitalIn the event this information is protected by the Federal Confidentiality of Alcohol and Drug Abuse Patient Records regulations: The Federal rules restrict any use of the information to criminally investigate or prosecute any alcohol or drug abuse patient.[facility] HospitalIn the event this information is protected by the Federal Confidentiality of Alcohol and Drug Abuse Patient Records regulations: The Federal rules restrict any use of the information to criminally investigate or prosecute any alcohol or drug abuse patient.[facility] HospitalIn the event this information is protected by the Federal Confidentiality of Alcohol and Drug Abuse Patient Records regulations: The Federal rules restrict any use of the information to criminally investigate or prosecute any alcohol or drug abuse patient.[facility] HospitalIn the event this information is protected by the Federal Confidentiality of Alcohol and Drug Abuse Patient Records regulations: The Federal rules restrict any use of the information to criminally investigate or prosecute any alcohol or drug abuse patient.[facility] HospitalIn the event this information is protected by the Federal Confidentiality of Alcohol and Drug Abuse Patient Records regulations: The Federal rules restrict any use of the information to criminally investigate or prosecute any alcohol or drug abuse patient.[facility] HospitalIn the event this information is protected by the Federal Confidentiality of Alcohol and Drug Abuse Patient Records regulations: The Federal rules restrict any use of the information to criminally investigate or prosecute any alcohol or drug abuse patient.[facility] Care Teams (unrecognized sec tion and content) Alliance Consultant Relationship Specialty Start Date End Date Pcp, No PCP - General 01/30/22 08/17/22 Alliance Consultant Relationship Specialty Start Date End Date Pcp, No PCP - General 01/30/22 08/17/22 Alliance Consultant Relationship Specialty Start Date End Date Jared Evans MD [address] [place] [phone] PCP - General Family Medicine 05/18/22 Alliance Consultant Relationship Specialty Start Date End Date Jared Evans MD [address] [place] [phone] PCP - General Family Medicine 05/18/22 Alliance Consultant Relationship Specialty Start Date End Date Jared Evans MD [address] [place] [phone] PCP - General Family Medicine 05/18/22 Alliance Consultant Relationship Specialty Start Date End Date Jared Evans MD [address] [place] [address] PCP - General 03/06/20 Alliance Consultant Relationship Specialty Start Date End Date Jared Evans MD [address] [place] [address] PCP - General 03/06/20 Alliance Consultant Relationship Specialty Start Date End Date Jared Evans MD [address] [place] [address] PCP - General 03/06/20 Alliance Consultant Relationship Specialty Start Date End Date Jared Evans MD [address] [place] [address] PCP - General 03/06/20 Alliance Consultant Relationship Specialty Start Date End Date Jared Evans MD [address] [place] [address] PCP - General 03/06/20 Alliance Consultant Relationship Specialty Start Date End Date Jared Evans MD [address] [place] [address] PCP - General 03/06/20 Alliance Consultant Relationship Specialty Start Date End Date Jared Evans MD [address] [place] [address] PCP - General 03/06/20 Alliance Consultant Relationship Specialty Start Date End Date Jared Evans MD [address] [place] [address] PCP - General 03/06/20 Alliance Consultant Relationship Specialty Start Date End Date Jared Evans MD [address] [place] [address] PCP - General 03/06/20 Alliance Consultant Relationship Specialty Start Date End Date Jared Evans MD [address] [place] [address] PCP - General 03/06/20 Alliance Consultant Relationship Specialty Start Date End Date Jared Evans MD [address] [place] [address] PCP - General 03/06/20 Alliance Consultant Relationship Specialty Start Date End Date Jared Evans MD [address] [place] [address] PCP - General 03/06/20 Alliance Consultant Relationship Specialty Start Date End Date Jared Evans MD [address] [place] [address] PCP - General 03/06/20 Henok Hernandez PA-C [address] [place] [address] Physician Research Engineer Marine Equipment Physician Research Engineer Marine Equipment 04/19/24 Alliance Consultant Relationship Specialty Start Date End Date Jared Evans MD [address] [place] [address] PCP - General 03/06/20 Henok Hernandez PA-C [address] [place] [address] Physician Research Engineer Marine Equipment Physician Research Engineer Marine Equipment 04/19/24 Alliance Consultant Relationship Specialty Start Date End Date Jared Evans MD [address] [place] [address] PCP - General 03/06/20 Henok Hernandez PA-C [address] [place] [address], [place] [address] Physician Research Engineer Marine Equipment Physician Research Engineer Marine Equipment 04/19/24 Alliance Consultant Relationship Specialty Start Date End Date Jared Evans MD [address] [place] [address] PCP - General 03/06/20 Henok Hernandez PA-C [address] [place] [address] Physician Research Engineer Marine Equipment Physician Research Engineer Marine Equipment 04/19/24 Alliance Consultant Relationship Specialty Start Date End Date Jared Evans MD [address] [facility] [place] [address] PCP - General 03/06/20 Henok Hernandez PA-C [address] [place] [address] Physician Research Engineer Marine Equipment Physician Research Engineer Marine Equipment 04/19/24 Alliance Consultant Relationship Specialty Start Date End Date Jared Evans MD [address] [place] [address] PCP - General 03/06/20 Henok Santizo PA-C [address] [place] [address] Physician Research Engineer Marine Equipment Physician Research Engineer Marine Equipment 04/19/24 Alliance Consultant Relationship Specialty Start Date End Date Jared Evans MD [address] [place] [address] PCP - General 03/06/20 Henok Santizo PA-C [address] [address] Physician Research Engineer Marine Equipment Physician Research Engineer Marine Equipment 04/19/24 Alliance Consultant Relationship Specialty Start Date End Date Jared Evans MD [address] [place] [address] PCP - General Family Medicine 05/18/22 Alliance Consultant Relationship Specialty Start Date End Date Jared Evans MD [address] [place] [address] PCP - General Family Medicine 05/18/22 Alliance Consultant Relationship Specialty Start Date End Date [facility] [place] [address] PCP - General 03/06/20 Henok Santizo PA-C [address] [place] [address] Physician Research Engineer Marine Equipment Physician Research Engineer Marine Equipment 04/19/24 Alliance Consultant Relationship Specialty Start Date End Date Jared Evans MD [address] [place] [address] PCP - General Family Medicine 05/18/22 Alliance Consultant Relationship Specialty Start Date End Date Jared Evans MD 0 [place] [address] PCP - General Family Medicine 05/18/22 Alliance Consultant Relationship Specialty Start Date End Date Jared Evans MD [address] [place] [address] PCP - General Family Medicine 05/18/22 Alliance Consultant Relationship Specialty Start Date End Date Jared Evans MD [address] [place] [address] PCP - General Family Medicine 05/18/22 Alliance Consultant Relationship Specialty Start Date End Date Jared Evans MD [address] [place] [address] PCP - General Family Medicine 05/18/22 Alliance Consultant Relationship Specialty Start Date End Date Jared Evans MD [address] [place] [address] PCP - General 03/06/20 Henok Santizo PA-C [address] [place] [address] Physician Research Engineer Marine Equipment Physician Research Engineer Marine Equipment 04/19/24 Alliance Consultant Relationship Specialty Start Date End Date Jared Evans MD [address] [place] [address] PCP - General Family Medicine 05/18/22 Alliance Consultant Relationship Specialty Start Date End Date Jared Evans MD [address] [place] [address] PCP - General Family Medicine 05/18/22 Alliance Consultant Relationship Specialty Start Date End Date Jared Evans MD [address] [place] [address] PCP - General Family Medicine 05/18/22 Alliance Consultant Relationship Specialty Start Date End Date Jared Evans MD [address] [place] [address] PCP - General 03/06/20 Henok Santizo PA-C [address] [address] Physician Research Engineer Marine Equipment Physician Research Engineer Marine Equipment 04/19/24 Alliance Consultant Relationship Specialty Start Date End Date Jared Evans MD [facility] [place] [address] PCP - General 03/06/20 Henok Santizo PA-C [address] [address] Physician Research Engineer Marine Equipment Physician Research Engineer Marine Equipment 04/19/24 Alliance Consultant Relationship Specialty Start Date End Date Jared [facility] MD [facility] [place] [address] PCP - General 03/06/20 Henok Santizo PA-C [address] [address] Physician Research Engineer Marine Equipment Physician Research Engineer Marine Equipment 04/19/[address] [address] [facility] Facility 08/22/24 Alliance Consultant Relationship Specialty Start Date End Date Jared Evans MD 0 [place] [address] PCP - General Family Medicine 05/18/22 Alliance Consultant Relationship Specialty Start Date End Date Jared Evans MD [address] [place] [address] PCP - General Family Medicine 05/18/22 Team [...] October 08, 2024 End: October 08, 2024 Alliance Consultant Relationship Specialty Start Date End Date Jared [facility] [place] [address] PCP - General 03/06/20 Henok Santizo PA-C [address] [place] [address] Physician Research Engineer Marine Equipment Physician Research Engineer Marine Equipment 04/19/24 [facility] [address] [place] [address] [facility]pc Facility 08/22/24 Alliance Consultant Relationship Specialty Start Date End Date Jared Evans MD [address] [place] [address] PCP - General 03/06/20 Henok Santizo PA-C [address] [place] [address] Physician Research Engineer Marine Equipment Physician Research Engineer Marine Equipment 04/19/24 [facility] [address] [place] [address] [facility]pc Facility 08/22/24 Alliance Consultant Relationship Specialty Start Date End Date Jared Evans MD [address] [facility] [place] [address] PCP - General 03/06/20 Henok Santizo PA-C [address] [place] [address] Physician Research Engineer Marine Equipment Physician Research Engineer Marine Equipment 04/19/24 [facility] [address] [place] [address] [facility]pc Facility 08/22/24 Alliance Consultant Relationship Specialty Start Date End Date Jared Evans MD [address] [facility] [place] [address] PCP - General 03/06/20 Henok Santizo PA-C [address] [place] [address] Physician Research Engineer Marine Equipment Physician Research Engineer Marine Equipment 04/19/24 [facility] [address] [place] [address] Fpc Facility 08/22/24 Alliance Consultant Relationship Specialty Start Date End Date Jared Evans MD [address] [place] [address] PCP - General 03/06/20 Henok Santizo PA-C [address] [phone] Physician Research Engineer Marine Equipment Physician Research Engineer Marine Equipment 04/19/24 [facility] [address] [place] [address] [facility]pc Facility 08/22/24 Alliance Consultant Relationship Specialty Start Date End Date Megan Montoya [address] [place] [phone] PCP - General Internal Medicine 12/13/24 Henok Santizo PA-C [address] [address] Physician Research Engineer Marine Equipment Physician Research Engineer Marine Equipment 04/19/24 [facility] [address] [place] [address] Fpc Facility 08/22/24 Alliance Consultant Relationship Specialty Start Date End Date Megan Montoya [address] [place] [phone] PCP - General Internal Medicine 12/13/24 Henok Santizo PA-C [address] [place] [address] Physician Research Engineer Marine Equipment Physician Research Engineer Marine Equipment 04/19/24 Kristyn Hilario MD [address] [place] [address] Consulting Physician Vascular Surgery 12/24/24 [facility] [address] [place] [address] Fpc Facility 08/22/24 Alliance Consultant Relationship Specialty Start Date End Date Jared Evans MD [address] [place] [address] PCP - General Family Medicine 05/18/22 Alliance Consultant Relationship Specialty Start Date End Date Jared Evans MD [address] [place] [phone] PCP - General Family Medicine 05/18/22 Alliance Consultant Relationship Specialty Start Date End Date Megan Montoya [address] [facility] [address] [place] [phone] PCP - General Internal Medicine 12/13/24 Henok Santizo PA-C [address] [facility] [address] [place] [address] Physician Research Engineer Marine Equipment Physician Research Engineer Marine Equipment 04/19/24 Kristyn Hilario MD [address] [place] [address] Consulting Physician Vascular Surgery 12/24/24 [facility] [address] [place] [address] Fpc Facility 08/22/24 Scheduled Active and Recently Administ ered Medications (unrecognized section and content) Medication Order 04/11/2024 04/12/2024 04/13/2024 Fluticasone-Umeclidin- Vilant 100-62.5-25 MCG/ACT aerosol powder 1 puff 1 puff, Inhalation, Daily, First dose (after last modification) on Tue04/11/24 at 0600, Drug Name: Mark Gomez 100-62.5-25mcg/act, Form: aerosol powder, Length of Therapy: [...] reversal, respiratory depression, Starting on Tue04/04/24 at 8, +++ For RR <10, pinpoint pupils, over sedation for opioid reversal - MUST notify clinical information systems director provider immediately after first dose, may give [...] hours PRN, moderate pain (4-6), Starting on Tue04/05/24 at 1342 2048 (See Alternative - Provider: Norma Davis RN) 2019 (Given - Provider: Norma Davis RN) oxyCODONE (Roxicodone) immediate release tablet 5 mg(Linked Group 3) 5 mg, Oral, Every 4 hours PRN, severe pain (7-10), Starting on Tue04/05/24 at 1342 2048 (Given - Provider: Norma [...] Lopes RN)1444 (Given - Provider: Cecilia Lopes RN)2106 (Given - Provider: Luis Murry RN) 0936 (Given - Provider: La Avila, RADHA) atorvastatin (Lipitor) tablet 80 mg 80 mg, Oral, Daily, First dose on Tue07/06/24 at 0800 0907 (Given - Provider: Cecilia Loeps RN) 0936 (Given - Provider: La Avila RN) brimonidine (AlphaGAN) 0.2 % ophthalmic solution 1 drop 1 drop, Right Eye, 3 times daily, First dose on Maida 07/05/24 at 1400 1524 (Given - Provider: Aurea Castellon RN)2028 (Given - Provider: Luis Murry RN) 0914 (Given - Provider: Cecilia Lopes, RADHA)1447 (Given - Provider: Cecilia Lopes, RADHA)2106 (Given - Provider: Luis Murry RN) 0936 (Given - Provider: La Avila RN) dorzolamide (Trusopt) 2 % ophthalmic solution 1 drop 1 drop, Right Eye, 3 times daily, First dose on Maida 07/05/24 at 1400 1524 (Given - Provider: Aurea Castellon RN)2028 (Given - Provider: Luis Murry RN) 0907 (Given - Provider: Cecilia Lopes RN)1447 (Given - Provider: Cecilia Lopes RN)2106 (Given - Provider: Luis Murry RN) 0936 (Given - Provider: La Avila RN) enoxaparin (Lovenox) syringe 70 mg 70 mg, SubCUTAneous, Every 12 hours, First dose on Maida 07/05/24 at 1500 1738 (Given - Provider: Cecilia Lopes RN) 0406 (Given - Provider: Luis Murry RN)1443 (Given - Provider: Cecilia Lopes, RADHA) 0349 [...] Reason: Patient/family refused) 09 (Given - Provider: La Avila RN) morphine [...] Fluids Infusing)1630 (Not Given - Provider: Cecilia Rerko, RN - Reason: IV Fluids Infusing) 0430 (Given - Provider: Luis Murry RN) timolol (Timoptic) 0.5 % ophthalmic solution 1 drop 1 drop, Right Eye, 2 times daily, First dose on Maida 07/05/24 at 1355 1523 (Given - Provider: Aurea Castellon RN)2029 (Given - Provider: Luis Murry, RADHA) 0914 (Given - Provider: Cecilia Lopes, RADHA)2106 (Given - Provider: Luis Murry RN) 0936 (Given - Provider: La Avila, RADHA) tiotropium (Spiriva Respimat) 2.5 MCG/ACT inhaler 2 puff 2 puff, Inhalation, Daily, First dose on Maida 07/05/24 at 1615 1742 (Given - Provider: Cecilia Loeps RN) 0909 (Given - Provider: Cecilia Lopes [...] Lopez RN) 1217 (Given - Provider: Cecilia Lopes RN)2108 (Given - Provider: Luis Murry, RADHA) 0300 [...] not swallow. 1015 (Given - Provider: Mp Kolat, RN)2135 (Given - Provider: Wanda Mendoza RN) [...] RN) 0944 (Given - Provider: Cici Perez RN)214 (Given [...] Intraprocedure 0952 (Given - Provid er: Kristyn Hilario MD) iodixanol (VISIPaque) 320 MG/ML injection (COMPLETED) Continuous PRN, Starting on Maida 11/22/24 at 1105, Intraprocedure 1105 (New Bag - Prov ider: Kristyn Hilario MD) lidocaine (Xylocaine) 1 % injection (CANCELED) As needed, Starting on Maida 11/22/24 at 0946, Intraprocedure 0946 (Given - Provid er: Kristyn Hilario MD) sodium chloride 0.9 % infusion 5-250 [...] BE BASED ON THE PRIMARY CLINICAL RECORDS. [employer] [facility]. provides no warranty or guarantee of the accuracy or completeness of information in this document.
[2025-02-18 09:28] LABS: Hematocrit 31.6 % (37-47); Hemoglobin 10.2 g/dL (12.0-15.0); Mean Corp Hgb Conc 32.3 g/dL (32-36); Mean Corpuscular Volume 92.9 fL (81-99); Mean Platelet Vol. 9.9 fl (6.2-12.0); Platelet Count 257 K/mm3 (150-450); RBC Distribution Width CV 14.0 % (11.6-14.6); RBC Distribution Width SD 47.2 fl (35.1-43.9); Red Blood Count 3.40 M/mm3 (4.2-5.4); White Blood Count 4.3 K/mm3 (4.4-11.0)
[2025-02-18 09:32] LABS: Prothrombin Time (Protime)PT. 27.6 SECONDS (11.7-14.9)
[2025-02-18 09:37] LABS: Anion Gap 9 (5-15); BUN 23 mg/dL (4-19); BUN/Creat Ratio 22.7 RATIO (10-20); Calcium,Total 9.2 mg/dL (7.6-11.0); Carbon Dioxide 21.6 mmol/L (21.0-32.0); Chloride 108 mmol/L (98-108); Glucose 91 mg/dL (70-99); Potassium 5.2 mmol/L (3.3-5.1)
== END ==
LOC: OLS.SANC 05:00
PROVIDERS: Visit Provider Internal Medicine
DX: I48.91 Unspecified atrial fibrillation (principal); J44.9 Chronic obstructive pulmonary disease, unspecified; R53.83 Other fatigue; I10 Essential (primary) hypertension
CPT/HCPCS: 36415; 80048; 85027; 85610

== ENCOUNTER → 2025-02-25 04:00 | Outpatient (REF) | payer MEDICARE, SELFPAY ==
[2025-02-25 11:33] LABS: INR Fingerstick 2.1
== END ==
LOC: OLS.SANC 04:00
PROVIDERS: Referring Provider Internal Medicine; Visit Provider Internal Medicine
DX: Z79.01 Long term (current) use of anticoagulants (principal)
CPT/HCPCS: 36416; 85610

== ENCOUNTER → 2025-03-04 | Outpatient (REF) | payer MEDICARE, SELFPAY ==
[2025-03-04 08:27] LABS: INR Fingerstick 2.3
== END ==
LOC: OLS.SANC 04:00
PROVIDERS: Referring Provider Internal Medicine; Visit Provider Internal Medicine
DX: Z79.01 Long term (current) use of anticoagulants (principal)
CPT/HCPCS: 36416; 85610

== ENCOUNTER → 2025-03-28 | Outpatient (REF) | payer MEDICARE, SELFPAY ==
--- OUTSIDE RECORDS SUMMARY | 2025-03-28 05:17 | XMS RPT_ITS | CCD ---
Author Organization [facility] ion [facility] [place] [facility] Care Team Providers Care Ticket Sorter Name Role Phone Maryuri King Primary Care Provider [phone] Jared Evans Primary Care Provider Pcp, No Primary Care Provider UnavailJared Mckinnon MD Primary Care Provider BERNIE BIRD Admitting Unavailable IWONA CHU Attending Unavailable MING OLSON Consulting Unavailable SIM ELIZABETH Attending Unavailable PRIMO DODD Referring Unavailable Jared Evans MD Primary Care Provider Jared Evans MD Primary Care Provider [phone] Henok Hernandez PA-C Unavailable [phone] Henok Lantigua PA-C Unavailable [phone] Jared Evans MD Primary Care Provider [phone] SYSTEM, PROVIDER NOT IN Referring Unavaila Megan Rice Attending Provider Unavailab Megan Porras Referring Provider Unavailab Megan Porras Attending Provider Unavailab Megan Porras Referring Provider Unavailab TORSTEN Hernandez Consulting Unavailable JARED EVANS Primary Care Unavailable FELICIA COREAS Admitting Unavailable DON EDWARDS Attending Unavailable Megan Beebe Primary Care Provider Krzysztof BROWNE, Kristyn Unavailable RED HENDERSON Referring Unavail able JARED EVANS Primary Care Unavailable FELICIA LEVY Admitting Unavailable BRIANA PRITCHARD Attending Unavailable SAVANA LOPEZ Attending Unavailable MAMMO, SAVANA A Referring Unavailable EVANS, JARED N Primary Care Unavailable MAMMO, SAVANA A Referring Unavailable EVANS, JARED N Primary Care Unavailable MAMMO, SAVANA A Attending Unavailable EVANS, JARED N Primary Care Unavailable MAMMO, SAVANA A Attending Unavailable EVANS, JARED N Primary Care Unavailable MAMMO, SAVANA A Attending Unavailable EVANS, JARED N Primary Care Unavailable MAMMO, SAVANA A Referring Unavailable EVANS, JARED N Primary Care Unavailable MADHU, DEVIKA A Admitting Unavailable MADHU, DEVIKA Khalil Attending Unavailable EVANS, JARED N Primary Care Unavailable ARIANNE, AZAR LYON Consulting Unavailable MAMMO, SAVANA A Admitting Unavailable MAMMO, SAVANA A Attending Unavailable EVANS, JARED N Primary Care Unavailable MAMMO, SAVANA A Attending Unavailable SELF Referring Unavailable EVANS, JARED N Primary Care Unavailable EVANS, JARED N Primary Care Unavailable SELF Referring Unavailable EVANS, JARED N Primary Care Unavailable SELF Referring Unavailable EVANS, JARED N Primary Care Unavailable SELF Referring Unavailable EVANS, JARED N Primary Care Unavailable MAMMO, SAVANA A Attending Unavailable MAMMO, SAVANA A Referring Unavailable EVANS, JARED N Primary Care Unavailable SELF Referring Unavailable EVANS, JARED N Primary Care Unavailable Katsaros OLS, Megan Attending Unavailable Katsaros OLS, Megan Attending Unavailable Katsaros OLS, Megan Attending Unavailable Katsaros OLS, Megan Attending Unavailable Katsaros OLS, Peter Referring Unavailable Katsaros OLS, Megan Attending Unavailable Katsaros OLS, Megan Attending Unavailable Katsaros OLS, Megan Attending Unavailable Katsaros OLS, Peter Referring Unavailable Katsaros OLS, Megan Attending Unavailable Katsaros OLS, Peter Referring Unavailable Katsaros OLS, Peter Attending Unavailable Katsaros OLS, Peter Attending Unavailable Katsaros OLS, Peter Attending Unavailable Katsaros OLS, Peter Referring Unavailable Katsaros OLS, Peter Referring Unavailable Katsaros OLS, Peter Attending Unavailable Katsaros OLS, Peter Attending Unavailable Katsaros OLS, Peter Referring Unavailable Katsaros OLS, Peter Attending Unavailable Katsaros OLS, Peter Attending Unavailable Katsaros OLS, Peter Referring Unavailable Katsaros OLS, Peter Attending Unavailable Katsaros OLS, Peter Attending Unavailable Katsaros OLS, Peter Attending Unavailable Katsaros OLS, Peter Attending Unavailable Katsaros OLS, Peter Attending Unavailable Katsaros, Peter Attending Unavailable Katsaros, Peter Referring Unavailable Katsaros OLS, Peter Attending Unavailable Katsaros OLS, Peter Attending Unavailable Katsaros OLS, Peter Attending Unavailable Katsaros OLS, Peter Attending Unavailable Katsaros MARGUERITE, Peter Referring Unavailable Darlyn FELIZ, Henok Unavailable [phone] Amanda Berry MD, Greg Unavailable DEVIN, RED Admitting Unavailable DEVIN, RED Attending Unavailable EVANS, JARED Primary Care Unavailable EVANS, JARED Primary Care Unavailable KRZYSZTOF, KRISTYN Attending Unavailable EVANS, JARED Primary Care Unavailable KRZYSZTOF, KRISTYN Attending Unavailable KRZYSZTOF, KRISTYN Admitting Unavailable EVANS, JARED Primary Care Unavailable EVANS, JARED Primary Care Unavailable EVANS, JARED Primary Care Unavailable BARAGA, DEVIKA Attending Unavailable TRISTA, MARTHA Admitting Unavailable EVANS, JARED Primary Care Unavailable EVANS, JARED Primary Care Unavailable DARLYN, HENOK Attending Unavailable ANTHONY YEE K Referring Unavailable EVANS, JARED Primary Care Unavailable KATSAROS, PETER Primary Care Unavailable ANDRE PATEL Attending Unavailable KATSAROS, PETER Primary Care Unavailable KRZYSZTOF, KRISTYN Attending Unavailable EVANS, JARED Primary Care Unavailable KING, MARIANA Referring Unavailable EVANS, JARED Primary Care Unavailable KING, MARIANA Referring Unavailable KATSAROS, PETER Primary Care Unavailable KRZYSZTOF, KRISTYN Referring Unavailable KRZYSZTOF, KRISTYN Attending Unavailable EVANS, JARED Primary Care Unavailable EVANS, JARED Referring Unavailable EVANS, JARED Attending Unavailable GODIOSNICOLENA Attending Unavailable EVANS, JARED Primary Care Unavailable EVANS, JARED Primary Care Unavailable EVANS, JARED Primary Care Unavailable EVANS, JARED Primary Care Unavailable KRZYSZTOF, KRISTYN Attending Unavailable EVANS, JARED Primary Care Unavailable EVANS, JARED Referring Unavailable ISHERMILA RODRIGUEZ Attending Unavailable EVANS, JARED Primary Care Unavailable DARLYN, HENOK Attending Unavailable JORDIN ROLDAN Attending Unavailable ANDRE PATEL Consulting Unavailable PRATIBHA AVELAR Admitting Unavailable EVANS, JARED Primary Care Unavailable Allergies Allergy Classification Reported Allergen(s) Allergy Type Date of Onset Reaction(s) Facility (20 sources) Amoxicillin Drug Allergy 0 [place], [place] (20 sources) fluticasone / salmeterol Drug Allergy 0 Intolerance [place], [place] (20 sources) Acetaminophen / oxyCODONE; Translations: [OXYCODONE-ACETAM INOPHEN] Drug Allergy 2 Itching [facility] Other [facility] (9 sources) Ampicillin; Translations: [AMPICILLIN] Drug Allergy 4 Unknown [facility] (13 sources) Amoxicillin-Pot [facility] FLUTICASONE PROPION-SALMETERO L; Translations: [FLUTICASONE PROPION-SALMETERO L] Propensity to adverse reactions to drug (disorder) [address] [facility] Repository Medications Current Medications Medication [...] for pain for up to 3 days. [id number] 200 actuat albuterol 0.09 mg/actuat metered dose [...] 07/09/2024 Discontinued amLODIPine 5 mg oral tablet (19 sources) Dihydropyridine Calcium Channel Essie Start: 08-12-2024 [...] Take 1 tablet by donna twice daily with meals for 10 days. Take 1 tablet by donna every 12 hours for 3 days. apixaban [...] Start: 06-28-2022 take 2 tablets by mo [facility] twice daily, then take 1 [...] above: Take 1 tablet by donna th three times daily. atorvastatin 80 mg oral tablet (20 sources) HMG-CoA Reductase Inhibitor Start: 4 End: 5 take 1 tablet by mouth once daily [...] 1300, Until Tue08/02/24 at 0059, Administer for applanation tonometry. In the event of a Fluress shortage, administer Antonietta-Fluor 1 drop into both eyes as directed for applanation tonometry, [facility] Start: 07-12-2024 End: 07-12-2024 fluorescein-benoxinate 0.3-0 .4 % 1 Drop (FLURESS) bisacodyl 5 mg delayed release oral tablet (4 sources) Stimulant Laxative bisacodyl (Du lcolax) 10 [...] 500 mg clopidogrel 75 mg oral tablet (10 sources) P2Y12 Platelet Inhibitor Start: 11-22-2024 End: [...] on above: Take 2 tablets by mo [facility] every 12 hours for 3 [...] Comment on above: Take 1 tablet by [facility] every 12 hours for 7 days. [...] moderate pain (4-6), Starting on Tue04/04/24 at 2032, For 2 doses ammonium lactate 120 mg/ml topical cream (2 sources) ammonium lactate (Amlactin) 12 % cream Apply topically if needed for dry skin. Active lactobacillus rhamnosus gg [id number] unt oral capsule (2 sources) Start: 06-29-20 End: 07-29-19 take 1 capsule by mouth once daily lactobacillus rhamnosus (CULTURELLE) 10 billion cell capsule Take 1 capsule by mouth once daily. 30 capsule 0 06/29/2022 07/29/2022 Active Comment on above: Take 1 capsule by [facility] once daily. lidocaine 0.04 [...] E-Cancel) magnesium hydroxide 80 mg/ml oral suspension (2 sources) magnesium hydrox alexandra (Milk of Magnesia) 400 [...] dry powder inhaler (7 sources) Corticosteroid Start: 025 take 1 puff(s) by inhalation once daily mometasone (ASMANEX) 220 mcg/ actuation (14) aepb Inhale 1 Puff as instructed once daily. 07/18/2024 Active Multiple Vitamin (multivitamin) tablet (2 sources) take 1 tablet by mouth once daily [...] FROM LIGHT, [facility] MED ORDERS Start: 09-05-2024 End: [...] Drop ( AK-DILATE, KEL-SYNEPHRINE) polyethylene glycol 3350 97714 mg powder for oral solution (11 sources) [...] (6 times per day), First dose on Tue07/05/24 at 1210 predniSONE 20 mg oral tablet [...] actuat umeclidinium 0.0625 mg/actuat dry powder inhaler (12 sources) Anticholinergic Start: 09-29-2024 take 1 puff(s) by inhalation once daily Incruse Ellipta 62.5 MCG/ACT inhalation Inhale 1 puff daily. 09/29/2024 Active warfarin sodium 3 mg oral tablet (20 sources) Vitamin K Antagonist Start: 01-10-2025 warfarin (Coumadin) 3 MG tablet 3.5 mg. 01/10/2025 Active Start: 06-01-2024 End: 07-05-2024 warfarin (Coumadin) 5 MG tab let Indications: Deep vein thrombosis (DVT) of lower extremity, unspecified chronicity, unspecified laterality, unspecified vein (HCC) , Atrial fibrillation, unspecified type (HCC) , Acute venous embolism and thrombosis of deep vessels of proximal end of right lower extremity (HCC) Take as directed by [facility] Anticoagulation Clinic (90 tablets = [...] lower extremity (HCC) Take as directed by [facility] Anticoagulation Clinic (45 tablets= 30 day supply) 45 tablet 1 04/27/2024 Active Start: 04-09-2024 7.5 mg, Oral, Once Warfarin, On Maida 04/12/24 at 1700, For 1 dose Start: 04-07-2024 warfarin (Coum jay jay) 5 MG tablet Take 1 tablet (5mg) on 04/13 in the evening Take 1.5 tablets (7.5mg) on 04/14 Take 1 tablet (5mg) on 04/15 Follow up with [facility] pharmacy for further dosing 30 tablet 04/13/2024 Active Start: 04-04-2024 2.5 mg, Oral, Once Warfarin, On 04/06/24 at 1700, For 1 dose End: 05-14-2022 take 1 tablet by mouth once daily warfarin (COUMADIN) 5 mg ORAL Tab 1 tab po daily 0 05/14/2022 Discontinued Comment on above: 1 tab po daily zinc oxide 0.2 mg/mg topical ointment (4 [...] Start: 07-17-2024 take 2 tablets by mo uth four times daily acetaminophen (Tylenol) 325 MG [...] Start: 06-28-2022 take 2 tablets by mo uth every six hours acetaminophen (TYLENOL) 325 mg [...] sodium chloride 0.9 % 100 mL IVPB (Add-Be[place]) (2 sources) Start: End: take 3000 mg intravenously every six hours 3,000 mg, IntraVENous, at 200 mL/hr, Administer over 30 Minutes, Every 6 hours, First dose on Tue08/03/24 at 1200, For 18 doses, ADD-[place] bag, Suspected Indication (Select all that apply): Aspiration Pneumonia aspirin 81 mg delayed release oral tablet (10 sources) Platelet Aggregation Inhibitor, Nonsteroidal Anti-inflammatory Drug Start: 025 End: 025 take 81 mg by mouth once 81 [...] Anesthetic Start: 03-07-2020 End: 03-07-2020 lidocaine-EPINEPHrine 1 percent-1:[id number] injection 8 mL ergocalciferol 1.25 mg oral capsule (3 sources) Provitamin D2 Compound End: 07-05-2024 take 1 capsule by mouth every week ergocalciferol (Vitamin D2) 1.25 MG (68329 UT) capsule Take 1.25 mg by mouth [...] IntraVENous, IMG once PRN, contrast, Starting on 04/03/24 at 2112, For 1 dose Start: [...] every hour 4 mg, IntraVENous, Once, On Tue07/05/24 at 1300, For 1 dose, If oral [...] RR 2 ml ondansetron 2 mg/ml injection (13 sources) Serotonin-3 Receptor Antagonist Start: 08-03-2024 End: [...] tablet 04/13/2024 04/18/2024 Active Start: 04-05-2024 End: 09-27-2024 take 1 tablet by mouth every four [...] mL/hr, Administer over 1 Hours, Once, On Tue07/05/24 at 0430, For 1 dose Start: 07-05-2024 End: 07-07-2024 take 50 mL intravenously every hour 50 mL/hr, IntraVENous, Continuous, Starting on Tue07/05/24 at 0430 Start: 07-05-2024 End: 07-07-2024 take 5-40 mL intravenously every twelve hours 5-40 mL, IntraVENous, Every 12 hours, First dose on Tue07/05/24 at 0430, For Line Patency: Peripheral IV [...] on Tue04/03/24 at 1820 sodium zirconium cyclosilicate 24498 mg powder for oral suspension (2 sources) [...] Daily, First dose on Tue04/04/24 at 0900 Problems Active Problems Problem Classification Problem Date [...] Translations: [Finger osteomyelitis, right] Onset: 0 03-06-2020 Malaise and fatigue (1 source) Other fatigue; Translations: [Other fatigue] Onset: 5 Episodic Mood disorders (20 sources) 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; Translations: [Major depressive disorder, single episode, in full remission] Onset: 0 03-07-2020 Chronic Other aftercare (8 sources) Surgical follow-up; Translations: [Encounter for surgical aftercare following surgery on the circulatory system] 12-05-2024 Episodic Other and ill-defined heart disease (2 [...] sources) Long-term current use of anticoagulant; Translations: [penitentiary (current) use of anticoagulants] Onset: 0 03-07-2020 Episodic Other aftercare (4 sources) penitentiary (current) use of anticoagulants; 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] Onset: 2 Episodic Other aftercare (1 source) Other assisted (current) drug therapy; Translations: [Other assisted (current) drug therapy] Onset: 5 Episodic Other aftercare (2 sources) Encounter for surgical aftercare following surgery on the circulatory system; Translations: [Encounter for surgical aftercare following surgery on the circulatory system] Onset: 5 Episodic Other bone disease and [...] right foot, limited to breakdown of skin ([facility]) 12-05-2024 Unclassified (4 sources) PAD (peripheral artery disease) ([facility]) 12-05-2024 Viral infection (20 sources) Disease caused by 2019-nCoV; Translations: [COVID-19] Onset: 2 06-16-2022 Episodic Results Test Name Value Interpretation Reference Range Facility Progress Noteon 03-15-2025 Progress Note Normal [facility] Protime w/INR Fingerstickon 03-04-2025 INR Coag (PPP) [Relative time] 2.3 {INR} Normal [facility] Comment on above: Result Comment: Crit ical Value > 4.0 Performed By: #### L [id number] #### [facility] Laboratory [address] [place], [address] Protime [place] 24.7 SEC High 11.7-14.9 [facility] Comment on above: Performed By: #### L [id number] #### [facility] [address] [place], [place], [id number] 36on 02-27-2025 36 Letter mailed to patient Normal [facility] 36on 02-26-2025 36 Normal [facility] Protime w/INR Fingerstickon 08-11-2025 INR Coag (PPP) [Relative time] 2.1 {INR} Normal [facility] Comment on above: Result Comment: Crit ical Value > 4.0 Performed By: #### L [id number] #### [facility] [address] [place], [address] Protime [place] 23.3 SEC High 11.7-14.9 [facility] Comment on above: Performed By: #### L [id number] #### [facility] [address] [place], [address] Basic Metabolic Profile (BMP )on 02-18-2025 BUN/CRE 22.7 RATIO High 10-20 [facility] Comment on above: Performed By: #### L 300.3900 #### [facility] [address] [place], [address] Calcium [Mass/Vol] 9.2 mg/dL Normal 7.6-11.0 [facility] Comment on above: Performed By: #### L 300.3900 #### [facility] [address] [place], [address] Chloride [Moles/Vol] 108 mmol/L Normal 98-108 [facility] Comment on above: Performed By: #### L 300.3900 #### [facility] [address] [place], [address] CO2 [Moles/Vol] 21.6 mmol/L Normal 21.0-32.0 [facility] Comment on above: Performed By: #### L 300.3900 #### [facility] [address] [place], [address] Creatinine [Mass/Vol] 1.03 mg/dL Normal 0.70-1.20 [facility] Comment on above: Performed By: #### L 300.3900 #### [facility] [address] [place], [address] GAP 9 Normal 5-15 [facility] Comment on above: Performed By: #### L 300.3900 #### [facility] [address] [place], [address] GFR/1.73 sq M.predicted among non-blacks MDRD (S/P/Bld) [Vol rate/Area] 53 mL/min/{1.73_m2} Low >60 [facility] Comment on above: Result Comment: mL/m in/1.73m2 CKD-EPI Creatinine Equation (2020) Performed By: #### L 300.3900 #### [facility] [address] [place], [address] Glucose [Mass/Vol] 91 mg/dL Normal 70-99 [facility] Comment on above: Performed By: #### L 300.3900 #### [facility] [address] [place], [address] Potassium [Moles/Vol] 5.2 mmol/L High 3.3-5.1 [facility] Comment on above: Performed By: #### L 300.3900 #### [facility] [address] [place], [address] Sodium [Moles/Vol] 138 mmol/L Normal 133-145 [facility] Comment on above: Performed By: #### L 300.3900 #### [facility] [address] [place], [address] Urea nitrogen [Mass/Vol] 23 mg/dL High 4-19 [facility] Comment on above: Performed By: #### L 300.3900 #### [facility] [address] [place], [address] CBC-Complete Blood Cnt No Di ffon 02-18-2025 Erythrocyte distribution width (RBC) [Ratio] 14.0 % Normal 11.6-14.6 [facility] Comment on above: Performed By: #### L [id number] #### [facility] [address] [place], [address] Hematocrit (Bld) [Volume fraction] 31.6 % Low 37-47 [facility] Comment on above: Performed By: #### L [id number] #### [facility] [address] [place], [address] Hemoglobin (Bld) [Mass/Vol] 10.2 g/dL Low 12.0-15.0 [facility] Comment on above: Performed By: #### L [id number] #### [facility] [address] [place], [address] MCH (RBC) [Entitic mass] 30.0 pg Normal 27.0-32.0 [facility] Comment on above: Performed By: #### L [id number] #### [facility] [address] [place], [address] MCHC (RBC) [Mass/Vol] 32.3 g/dL Normal 32-36 [facility] Comment on above: Performed By: #### L [id number] #### [facility] [address] [place], [address] MCV (RBC) [Entitic vol] 92.9 fL Normal 81-99 [facility] Comment on above: Performed By: #### L [id number] #### [facility] [address] [place], [address] Platelet mean volume (Bld) [Entitic vol] 9.9 fL Normal 6.2-12.0 [facility] Comment on above: Performed By: #### L [id number] #### [facility] [address] [place], [address] Platelets (Bld) [#/Vol] 257 10*3/uL Normal 150-450 [facility] Comment on above: Performed By: #### L [id number] #### [facility] [address] [place], [address] RBC (Bld) [#/Vol] 3.40 10*6/uL Low 4.2-5.4 [facility] Comment on above: Performed By: #### L [id number] #### [facility] [address] [place], [address] RDW SD 47.2 fl High 35.1-43.9 [facility] Comment on above: Performed By: #### L [id number] #### [facility] [address] [place], [address] WBC (Bld) [#/Vol] 4.3 10*3/uL Low 4.4-11.0 [facility] Comment on above: Performed By: #### L [id number] #### [facility] [address] [place], [address] Prothrombin Time w/INRon INR Coag (PPP) [Relative time] 2.5 {INR} Normal [facility] Comment on above: Performed By: #### L 300.3900 #### [facility] [address] [place], [address] PT Coag (PPP) [Time] 27.6 s High 11.7-14.9 [facility] Comment on above: Performed By: #### L 300.3900 #### [facility] [address] [place], [address] Basic Metabolic Profile (BMP )on 02-15-2025 BUN/CRE 18.4 RATIO Normal 10-20 [facility] Comment on above: Order Comment: 104.1 Performed By: #### L [id number] #### [facility] [address] [place], [address] Calcium [Mass/Vol] 9.4 mg/dL Normal 7.6-11.0 [facility] Comment on above: Order Comment: 104.1 Performed By: #### L [id number] #### [facility] [address] [place], [address] Chloride [Moles/Vol] 107 mmol/L Normal 98-108 [facility] Comment on above: Order Comment: 104.1 Performed By: #### L [id number] #### [facility] [address] [place], [address] CO2 [Moles/Vol] 16.1 mmol/L Low 21.0-32.0 [facility] Comment on above: Order Comment: 104.1 Performed By: #### L [id number] #### [facility] [address] [place], [address] Creatinine [Mass/Vol] 1.12 mg/dL Normal 0.70-1.20 [facility] Comment on above: Order Comment: 104.1 Performed By: #### L [id number] #### [facility] [address] [place], [address] GAP 11 Normal 5-15 [facility] Comment on above: Order Comment: 104.1 Performed By: #### L [id number] #### [facility] [address] [place] [place], [address] GFR/1.73 sq M.predicted among non-blacks MDRD (S/P/Bld) [Vol rate/Area] 48 mL/min/{1.73_m2} Low >60 [facility] Comment on above: Order Comment: 104.1 Result Comment: mL/m in/1.73m2 CKD-EPI Creatinine Equation (2020) Performed By: #### L [id number] #### [facility] [address] [place], [address] Glucose [Mass/Vol] 90 mg/dL Normal 70-99 [facility] Comment on above: Order Comment: 104.1 Performed By: #### L 9200.0000 #### [facility] [address] [place], [address] Potassium [Moles/Vol] 6.1 mmol/L Invalid Interpretation Code 3.3-5.1 [facility] Comment on above: Order Comment: 104.1 Result Comment: Crit ical result called 02/15/2025-09:30 by Cirilo Bird to Shannen Christianson. Hemolysis present, Results??could be affected. ?? Critical Result(s) Called at: by:??Results read back by same. Performed By: #### L 9200.0000 #### [facility] [address] [place], [address] Sodium [Moles/Vol] 134 mmol/L Normal 133-145 [facility] Comment on above: Order Comment: 104.1 Performed By: #### L 9200.0000 #### [facility] [address] [place], [address] Urea nitrogen [Mass/Vol] 21 mg/dL High 4-19 [facility] Comment on above: Order Comment: 104.1 Performed By: #### L 9200.0000 #### [facility] [address] [place], [address] CBC-Complete Blood Cnt No Di ffon 02-15-2025 Erythrocyte distribution width (RBC) [Ratio] 13.8 % Normal 11.6-14.6 [facility] Comment on above: Order Comment: 104.1 Performed By: #### L 500.2500, L100.0500 #### [facility] [address] [place], [address] Hematocrit (Bld) [Volume fraction] 34.2 % Low 37-47 [facility] Comment on above: Order Comment: 104.1 Performed By: #### L 500.2500, L100.0500 #### [facility] [address] [place], [address] Hemoglobin (Bld) [Mass/Vol] 10.8 g/dL Low 12.0-15.0 [facility] Comment on above: Order Comment: 104.1 Performed By: #### L 500.2500, L100.0500 #### [facility] [address] [place], [address] MCH (RBC) [Entitic mass] 30.4 pg Normal 27.0-32.0 [facility] Comment on above: Order Comment: 104.1 Performed By: #### L 500.2500, L100.0500 #### [facility] [address] [place], [address] MCHC (RBC) [Mass/Vol] 31.6 g/dL Low 32-36 [facility] Comment on above: Order Comment: 104.1 Performed By: #### L 500.2500, L100.0500 #### [facility] [address] [place], [address] MCV (RBC) [Entitic vol] 96.3 fL Normal 81-99 [facility] Comment on above: Order Comment: 104.1 Performed By: #### L 500.2500, L100.0500 #### [facility] [address] [place], [address] Platelet mean volume (Bld) [Entitic vol] 10.4 fL Normal 6.2-12.0 [facility] Comment on above: Order Comment: 104.1 Performed By: #### L 500.2500, L100.0500 #### [facility] [address] [place], [address] Platelets (Bld) [#/Vol] 239 10*3/uL Normal 150-450 [facility] Comment on above: Order Comment: 104.1 Performed By: #### L 500.2500, L100.0500 #### [facility] [address] [place], [address] RBC (Bld) [#/Vol] 3.55 10*6/uL Low 4.2-5.4 [facility] Comment on above: Order Comment: 104.1 Performed By: #### L 500.2500, L100.0500 #### [facility] [address] [place], [address] RDW SD 49.1 fl High 35.1-43.9 [facility] Comment on above: Order Comment: 104.1 Performed By: #### L 500.2500, L100.0500 #### [facility] [address] [place], [address] WBC (Bld) [#/Vol] 4.3 10*3/uL Low 4.4-11.0 [facility] Comment on above: Order Comment: 104.1 Performed By: #### L 500.2500, L100.0500 #### [facility] [address] [place], [address] Prothrombin Time w/INRon INR Normal [facility] Comment on above: Order Comment: 104-1 Result Comment: FING ERSTICK Performed By: #### L 300.3900 #### [facility] [address] [place], [address] PROTIME Normal 11.7-14.9 [facility] Comment on above: Order Comment: 104-1 Result Comment: FING ERSTICK Performed By: #### L 300.3900 #### [facility] [address] [place], [address] Protime w/INR Fingerstickon 02-11-2025 INR Coag (PPP) [Relative time] 2.5 {INR} Normal [facility] Comment on above: Result Comment: Crit ical Value > 4.0 Performed By: #### L 9200.0000 #### [facility] [address] [place], [address] Protime Coagsen 26.4 SEC High 11.7-14.9 [facility] Comment on above: Performed By: #### L 9200.0000 #### [facility] [address] [place], [address] Protime w/INR Fingerstickon 02-07-2025 INR Coag (PPP) [Relative time] 2.2 {INR} Normal [facility] Comment on above: Result Comment: Crit ical Value > 4.0 Performed By: #### L 300.3900 #### [facility] [address] [place], [address] Protime Coagsen 23.6 SEC High 11.7-14.9 [facility] Comment on above: Performed By: #### L 300.3900 #### [facility] [address] [place], [address] Protime w/INR Fingerstickon 02-04-2025 INR Coag (PPP) [Relative time] 3.6 {INR} Normal [facility] Comment on above: Result Comment: Crit ical Value > 4.0 Performed By: #### L 9200.0000 #### [facility] [address] [place], [address] Protime Coagsen 36.4 SEC High 11.7-14.9 [facility] Comment on above: Performed By: #### L 9200.0000 #### [facility] [address] [place], [address] Prothrombin Time w/INRon INR Coag (PPP) [Relative time] 3.3 {INR} Normal [facility] Comment on above: Order Comment: 104-1 Performed By: #### L 300.3900 #### [facility] [address] [place], [address] PT Coag (PPP) [Time] 34.2 s High 11.7-14.9 [facility] Comment on above: Order Comment: 104- Performed By: #### L 300.3900 #### [facility] [address] [place], [address] Protime w/INR Fingerstickon 01-28-2025 INR Coag (PPP) [Relative time] 2.8 {INR} Normal [facility] Comment on above: Result Comment: Crit ical Value > 4.0 Performed By: #### L 9200.0000 #### [facility] [address] [place], [address] Protime Coagsen 29.1 SEC High 11.7-14.9 [facility] Comment on above: Performed By: #### L 9200.0000 #### [facility] [address] [place], [address] Protime w/INR Fingerstickon 01-25-2025 INR Coag (PPP) [Relative time] 3.4 {INR} Normal [facility] Comment on above: Result Comment: Crit ical Value > 4.0 Performed By: #### L 9200.0000 #### [facility] [address] [place], [address] Protime Coagsen 34.5 SEC High 11.7-14.9 [facility] Comment on above: Performed By: #### L 9200.0000 #### [facility] [address] [place], [address] Prothrombin Time w/INRon INR Coag (PPP) [Relative time] 2.8 {INR} Normal [facility] Comment on above: Order Comment: 104- Performed By: #### L 300.3900 #### [facility] [address] [place], [address] PT Coag (PPP) [Time] 30.5 s High 11.7-14.9 [facility] Comment on above: Order Comment: 104-1 Performed By: #### L 300.3900 #### [facility] [address] [place], [address] Prothrombin Time w/INRon INR Coag (PPP) [Relative time] 2.5 {INR} Normal [facility] Comment on above: Order Comment: 104-1 Performed By: #### L 300.3900 #### [facility] [address] [place], [address] PT Coag (PPP) [Time] 27.1 s High 11.7-14.9 [facility] Comment on above: Order Comment: 104-1 Performed By: #### L 300.3900 #### [facility] [address] [place], [address] Prothrombin Time w/INRon INR Coag (PPP) [Relative time] 2.4 {INR} Normal [facility] Comment on above: Order Comment: 104-1 Performed By: #### L 300.3900 #### [facility] [address] [place], [address] PT Coag (PPP) [Time] 26.9 s High 11.7-14.9 [facility] Comment on above: Order Comment: 104-1 Performed By: #### L 300.3900 #### [facility] [address] [place], [address] Protime w/INR Fingerstickon 01-17-2025 INR Coag (PPP) [Relative time] 1.9 {INR} Normal [facility] Comment on above: Result Comment: Crit ical Value > 4.0 Performed By: #### L 9200.0000 #### [facility] [address] [place], [address] Protime Coagsen 20.8 SEC High 11.7-14.9 [facility] Comment on above: Performed By: #### L 9200.0000 #### [facility] [address] [place], [address] Protime w/INR Fingerstickon 01-16-2025 INR Coag (PPP) [Relative time] 1.5 {INR} Normal [facility] Comment on above: Result Comment: Crit ical Value > 4.0 Performed By: #### L 9200.0000 #### [facility] [address] [place], [address] Protime Coagsen 17.2 SEC High 11.7-14.9 [facility] Comment on above: Performed By: #### L 9200.0000 #### [facility] [address] [place], [address] Prothrombin Time w/INRon INR Coag (PPP) [Relative time] 1.2 {INR} Normal [facility] Comment on above: Performed By: #### L 9200.0000 #### [facility] [address] [place], [address] PT Coag (PPP) [Time] 15.4 s High 11.7-14.9 [facility] Comment on above: Performed By: #### L 9200.0000 #### [facility] [address] [place], [address] 36on 01-08-2025 36 Normal [facility] Basic Metabolic Profile (BMP )on 01-07-2025 BUN/CRE 17.7 RATIO Normal 10-20 [facility] Comment on above: Order Comment: 104-1 Performed By: #### L 300.3900 #### [facility] [address] [place], [address] Calcium [Mass/Vol] 9.1 mg/dL Normal 7.6-11.0 [facility] Comment on above: Order Comment: 104-1 Performed By: #### L 300.3900 #### [facility] [address] [place], [address] Chloride [Moles/Vol] 109 mmol/L High 98-108 [facility] Comment on above: Order Comment: 104-1 Performed By: #### L 300.3900 #### [facility] [address] [place], [address] CO2 [Moles/Vol] 19.7 mmol/L Low 21.0-32.0 [facility] Comment on above: Order Comment: 104-1 Performed By: #### L 300.3900 #### [facility] [address] [place], [address] Creatinine [Mass/Vol] 1.15 mg/dL Normal 0.70-1.20 [facility] Comment on above: Order Comment: 104-1 Performed By: #### L 300.3900 #### [facility] [address] [place], [address] GAP 10 Normal 5-15 [facility] Comment on above: Order Comment: 104-1 Performed By: #### L 300.3900 #### [facility] [address] [place], [address] GFR/1.73 sq M.predicted among non-blacks MDRD (S/P/Bld) [Vol rate/Area] 47 mL/min/{1.73_m2} Low >60 [facility] Comment on above: Order Comment: 104-1 Result Comment: mL/m in/1.73m2 CKD-EPI Creatinine Equation (2020) Performed By: #### L 300.3900 #### [facility] [address] [place], [address] Glucose [Mass/Vol] 87 mg/dL Normal 70-99 [facility] Comment on above: Order Comment: 104-1 Performed By: #### L 300.3900 #### [facility] [address] [place], [address] Potassium [Moles/Vol] 5.0 mmol/L Normal 3.3-5.1 [facility] Comment on above: Order Comment: 104-1 Performed By: #### L 300.3900 #### [facility] [address] [place], [address] Sodium [Moles/Vol] 138 mmol/L Normal 133-145 [facility] Comment on above: Order Comment: 104-1 Performed By: #### L 300.3900 #### [facility] [address] [place], [address] Urea nitrogen [Mass/Vol] 20 mg/dL High 4-19 [facility] Comment on above: Order Comment: 104-1 Performed By: #### L 300.3900 #### [facility] [address] [place], [address] CBC-Complete Blood Cnt No Di ffon 01-07-2025 Erythrocyte distribution width (RBC) [Ratio] 16.5 % High 11.6-14.6 [facility] Comment on above: Order Comment: 104-1 Performed By: #### L 300.3900 #### [facility] [address] [place], [address] Hematocrit (Bld) [Volume fraction] 30.4 % Low 37-47 [facility] Comment on above: Order Comment: 104-1 Performed By: #### L 300.3900 #### [facility] [address] [place], [address] Hemoglobin (Bld) [Mass/Vol] 9.8 g/dL Low 12.0-15.0 [facility] Comment on above: Order Comment: 104-1 Performed By: #### L 300.3900 #### [facility] [address] [place], [address] MCH (RBC) [Entitic mass] 29.9 pg Normal 27.0-32.0 [facility] Comment on above: Order Comment: 104-1 Performed By: #### L 300.3900 #### [facility] [address] [place], [address] MCHC (RBC) [Mass/Vol] 32.2 g/dL Normal 32-36 [facility] Comment on above: Order Comment: 104-1 Performed By: #### L 300.3900 #### [facility] [address] [place], [address] MCV (RBC) [Entitic vol] 92.7 fL Normal 81-99 [facility] Comment on above: Order Comment: 104-1 Performed By: #### L 300.3900 #### [facility] [address] [place], [address] Platelet mean volume (Bld) [Entitic vol] 10.0 fL Normal 6.2-12.0 [facility] Comment on above: Order Comment: 104-1 Performed By: #### L 300.3900 #### [facility] [address] [place], [address] Platelets (Bld) [#/Vol] 254 10*3/uL Normal 150-450 [facility] Comment on above: Order Comment: 104-1 Performed By: #### L 300.3900 #### [facility] [address] [place], [address] RBC (Bld) [#/Vol] 3.28 10*6/uL Low 4.2-5.4 [facility] Comment on above: Order Comment: 104-1 Performed By: #### L 300.3900 #### [facility] [address] [place], [address] RDW SD 55.9 fl High 35.1-43.9 [facility] Comment on above: Order Comment: 104-1 Performed By: #### L 590.3900 #### [facility] [address] [place], [place], [address] WBC (Bld) [#/Vol] 4.5 10*3/uL Normal 4.4-11.0 [facility] Comment on above: Order Comment: 104-1 Performed By: #### L 016.3905 #### [facility] [address] [place], [address] 36on 01-04-2025 36 Normal [facility] 36 Normal [facility] Progress Noteon 12-24-2024 Progress Note Normal [facility] No Panel Informationon 12-13 Left MICHELLE 0.71 [facility] Left arm BP 121 mmHg [facility] Left Dist Outflow EDV 6.5 cm/s [facility] Left Dist Outflow PSV 51.5 cm/s [facility] Left dorsalis pedis BP 67 mmHg [facility] Left Graft 1 Proximal Popliteal Stent [facility] Left Inflow Artery EDV 8.5 cm/s [facility] Left Inflow Artery PSV 46.5 cm/s [facility] Left Mid Outflow EDV 6.5 cm/s [facility] Left Mid Outflow PSV 58.1 cm/s [facility] Left Outflow Vessel EDV 9.8 cm/s [facility] Left Outflow Vessel PSV 89.9 cm/s [facility] Left posterior tibial [address] [facility] Left Prox Outflow EDV 6.5 cm/s [facility] Left Prox Outflow PSV 51.5 cm/s [facility] Right MICHELLE 0.96 [facility] Right arm BP 133 mmHg [facility] Right YARITZA dist PSV 53.6 cm/s [facility] Right MRI TECHNICIAN dist PSV 144.6 cm/s [facility] Right MRI TECHNICIAN mid AP diameter 0.92 cm [facility] Right MRI TECHNICIAN mid TR diameter 0.89 cm [facility] Right MRI TECHNICIAN prox PSV 133.7 cm/s [facility] Right Dist Outflow EDV 0 cm/s [facility] Right Dist Outflow PSV 45.3 cm/s [facility] Right dorsalis pedis BP 107 mmHg [facility] Right EIA dist PSV 144.6 cm/s [facility] Right Graft 1 Distal SFA Stent [facility] Right Inflow Artery EDV 4.6 cm/s [facility] Right Inflow Artery PSV 100.7 cm/s [facility] Right Mid Outflow EDV 2.3 [...] PSV 68.6 cm/s [facility] Right MATERIAL HANDLER 2ND SHIFT dist PSV 48.1 cm/s [facility] Right [...] Right SFA proximal TR diameter 0.61 cm [facility] Stents in SFA and popliteal artery [...] CPACS Progress Noteon 12-05-2024 Progress Note Normal [facility] 36on 11-23-2024 36 Normal [facility] 36 Normal [facility] 36 Normal [facility] [id number] 11-22-2024 [id number] Normal [facility] Anesthesia Noteon 11-22-2024 Anesthesia Note Normal [facility] No Panel Informationon 11-22 There is no interpretation needed for this exam. IMAGING Nursing Noteon 11-22-2024 Nursing Note Patient arrived on unit. Name and date verified. Attached to monitors. Vital signs stable. Normal [facility] Op Noteon 11-22-2024 Op Note Normal [facility] Progress Noteon 11-22-2024 [facility]. Groin site remains intact and LE distal pulses unchanged via assessment with doppler. 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 Made aware of patient's orders to lay flat until 1325. Daughter in law stated that she will call care facility later to make arrangements for transportation back. Normal [facility] Anesthesia Noteon 11-21-2024 Anesthesia Note Normal [facility] Basic Metabolic Profile (BMP )on 11-15-2024 BUN/CRE 18.3 RATIO Normal 10-20 [facility] Comment on above: Order Comment: 104-1 Performed By: #### L 9200.0000 #### [facility] [place] [place], [address] Calcium [Mass/Vol] 9.0 mg/dL Normal 7.6-11.0 [facility] Comment on above: Order Comment: 104-1 Performed By: #### L 9200.0000 #### [facility] [address] [place], [address] Chloride [Moles/Vol] 108 mmol/L Normal 98-108 [facility] Comment on above: Order Comment: 104-1 Performed By: #### L 9200.0000 #### [facility] [address] [place] [place], [address] CO2 [Moles/Vol] 22.1 mmol/L Normal 21.0-32.0 [facility] Comment on above: Order Comment: 104-1 Performed By: #### L 9200.0000 #### [facility] [address] [place], [address] Creatinine [Mass/Vol] 1.03 mg/dL Normal 0.70-1.20 [facility] Comment on above: Order Comment: 104-1 Performed By: #### L 9200.0000 #### [facility] [address] [place], [address] GAP 9 Normal 5-15 [facility] Comment on above: Order Comment: 104-1 Performed By: #### L 9200.0000 #### [facility] [address] [place], [address] GFR/1.73 sq M.predicted among non-blacks MDRD (S/P/Bld) [Vol rate/Area] 53 mL/min/{1.73_m2} Low >60 [facility] Comment on above: Order Comment: 104-1 Result Comment: mL/m in/1.73m2 CKD-EPI Creatinine Equation (2020) Performed By: #### L 9200.0000 #### [facility] [address] [place], [address] Glucose [Mass/Vol] 91 mg/dL Normal 70-99 [facility] Comment on above: Order Comment: 104-1 Performed By: #### L 9200.0000 #### [facility] [address] [place], [address] Potassium [Moles/Vol] 4.8 mmol/L Normal 3.3-5.1 [facility] Comment on above: Order Comment: 104-1 Performed By: #### L 9200.0000 #### [facility] [address] [place], [address] Sodium [Moles/Vol] 138 mmol/L Normal 133-145 [facility] Comment on above: Order Comment: 104-1 Performed By: #### L 9200.0000 #### [facility] [address] [place], [address] Urea nitrogen [Mass/Vol] 19 mg/dL Normal 4-19 [facility] Comment on above: Order Comment: 104-1 Performed By: #### L 9200.0000 #### [facility] [address] [place], [address] CBC W/Diff, Automatedon 05-0 1-5 Absolute Lymph 1.77 X10 3/uL Normal 0.83-4.51 [facility] Comment on above: Order Comment: 104-1 Performed By: #### L 9200.0000 #### [facility] [address] [place], [address] Absolute Neut 3.2 X10 3/uL Normal 2.0-7.7 [facility] Comment on above: Order Comment: 104-1 Performed By: #### L 9200.0000 #### [facility] [address] [place], [address] Basophils/100 WBC (Bld) 0.7 % Normal 0-1 [facility] Comment on above: Order Comment: 104-1 Performed By: #### L 9200.0000 #### [facility] [address] [place], [address] Eosinophils/100 WBC (Bld) 2.9 % Normal 0-5 [facility] Comment on above: Order Comment: 104-1 Performed By: #### L 9200.0000 #### [facility] [address] [place], [address] Erythrocyte distribution width (RBC) [Ratio] 18.8 % High 11.6-14.6 [facility] Comment on above: Order Comment: 104-1 Performed By: #### L 9200.0000 #### [facility] [address] [place], [address] Hematocrit (Bld) [Volume fraction] 30.9 % Low 37-47 [facility] Comment on above: Order Comment: 104-1 Performed By: #### L 9200.0000 #### [facility] [address] [place], [address] Hemoglobin (Bld) [Mass/Vol] 9.8 g/dL Low 12.0-15.0 [facility] Comment on above: Order Comment: 104-1 Performed By: #### L 9200.0000 #### [facility] [address] [place] [place], [address] IG% 0.200 Normal 0.0-0.9 [facility] Comment on above: Order Comment: 104-1 Result Comment: IG% - Immature Granulocytes (promyelocytes, myelocytes and metamyelocytes) > 1% indicates that a LEFT SHIFT is Present. Performed By: #### L 9200.0000 #### [facility] [address] [place], [address] Lymphocytes/100 WBC (Bld) 30.3 % Normal 19-41 [facility] Comment on above: Order Comment: 104-1 Performed By: #### L 9200.0000 #### [facility] [address] [place], [address] MCH (RBC) [Entitic mass] 28.4 pg Normal 27.0-32.0 [facility] Comment on above: Order Comment: 104-1 Performed By: #### L 9200.0000 #### [facility] [address] [place], [address] MCHC (RBC) [Mass/Vol] 31.7 g/dL Low 32-36 [facility] Comment on above: Order Comment: 104-1 Performed By: #### L 9200.0000 #### [facility] [address] [place], [address] MCV (RBC) [Entitic vol] 89.6 fL Normal 81-99 [facility] Comment on above: Order Comment: 104-1 Performed By: #### L 9200.0000 #### [facility] [address] [place], [address] Monocytes/100 WBC (Bld) 11.3 % High 0-10 [facility] Comment on above: Order Comment: 104-1 Performed By: #### L 9200.0000 #### [facility] [address] [place], [address] Neutrophils/100 WBC (Bld) 54.6 % Normal 47-70 [facility] Comment on above: Order Comment: 104-1 Performed By: #### L 9200.0000 #### [facility] [address] [place], [address] Nucleated RBC (Bld) [#/Vol] 0 10*3/uL Normal 0-5 [facility] Comment on above: Order Comment: 104-1 Performed By: #### L 9200.0000 #### [facility] [address] [place], [address] Platelet mean volume (Bld) [Entitic vol] 10.2 fL Normal 6.2-12.0 [facility] Comment on above: Order Comment: 104-1 Performed By: #### L 9200.0000 #### [facility] [address] [place], [address] Platelets (Bld) [#/Vol] 303 10*3/uL Normal 150-450 [facility] Comment on above: Order Comment: 104-1 Performed By: #### L 9200.0000 #### [facility] [address] [place], [address] RBC (Bld) [#/Vol] 3.45 10*6/uL Low 4.2-5.4 [facility] Comment on above: Order Comment: 104-1 Performed By: #### L 9200.0000 #### [facility] [address] [place], [address] RDW SD 61.8 fl High 35.1-43.9 [facility] Comment on above: Order Comment: 104-1 Performed By: #### L 9200.0000 #### [facility] [address] [place], [address] WBC (Bld) [#/Vol] 5.8 10*3/uL Normal 4.4-11.0 [facility] Comment on above: Order Comment: 104-1 Performed By: #### L 9200.0000 #### [facility] [address] [place], [address] 36on 11-14-2024 36 Normal [facility] on 11-08-2024 36 Fidel called to state that she spoke with Mel and she would like to proceed with angio. Normal [facility] Progress Noteon 11-05-2024 Progress Note Normal [facility] Anion gap in Serum or Plasma Ordered By: Megan Beebe on 10-08-2024 Anion gap [Moles/Vol] 12 mmol/L 11-29 [facility] BUN/creatinine ratioOrdered By: Megan Beebe on 10-08-2024 Urea nitrogen/Creatinine [Mass ratio] 16.5 mg/mg - [facility] Basic Metabolic Profile (BMP )on 10-08-2024 BUN/CRE 16.5 RATIO Normal - [facility] Comment on above: Order Comment: 104.1 Performed By: #### L 100.0500, L500.2500 #### [facility] [address] [place], [address] Calcium [Mass/Vol] 9.0 mg/dL Normal 7.6-11.0 [facility] Comment on above: Order Comment: 104.1 Performed By: #### L 100.0500, L500.2500 #### [facility] [address] [place], [address] Chloride [Moles/Vol] 106 mmol/L Normal 98-108 [facility] Comment on above: Order Comment: 104.1 Performed By: #### L 100.0500, L500.2500 #### [facility] [address] [place], [address] CO2 [Moles/Vol] 20.0 mmol/L Low 21.0-32.0 [facility] Comment on above: Order Comment: 104.1 Performed By: #### L 100.0500, L500.2500 #### [facility] [address] [place], [address] Creatinine [Mass/Vol] 1.05 mg/dL Normal 0.70-1.20 [facility] Comment on above: Order Comment: 104.1 Performed By: #### L 100.0500, L500.2500 #### [facility] [address] [place], [address] GAP 12 Normal 5-15 [facility] Comment on above: Order Comment: 104.1 Performed By: #### L 100.0500, L500.2500 #### [facility] [address] [place], [address] GFR/1.73 sq M.predicted among non-blacks MDRD (S/P/Bld) [Vol rate/Area] 52 mL/min/{1.73_m2} Low >60 [facility] Comment on above: Order Comment: 104.1 Result Comment: mL/m in/1.73m2 CKD-EPI Creatinine Equation (2020) Performed By: #### L 100.0500, L500.2500 #### [facility] [address] [place], [address] Glucose [Mass/Vol] 98 mg/dL Normal 70-99 [facility] Comment on above: Order Comment: 104.1 Performed By: #### L 100.0500, L500.2500 #### [facility] [address] [place], [address] Potassium [Moles/Vol] 4.3 mmol/L Normal 3.3-5.1 [facility] Comment on above: Order Comment: 104.1 Result Comment: Hemo lysis present, Results??could be affected. ?? Performed By: #### L 100.0500, L500.2500 #### [facility] [address] [place], [address] Sodium [Moles/Vol] 137 mmol/L Normal 133-145 [facility] Comment on above: Order Comment: 104.1 Performed By: #### L 100.0500, L500.2500 #### [facility] [address] [place], [address] Urea nitrogen [Mass/Vol] 17 mg/dL Normal 4-19 [facility] Comment on above: Order Comment: 104.1 Performed By: #### L 100.0500, L500.2500 #### [facility] [address] [place], [address] CBC-Complete Blood Cnt No Di ffon 10-08-2024 Erythrocyte distribution width (RBC) [Ratio] 17.5 % High 11.6-14.6 [facility] Comment on above: Order Comment: 104.1 Performed By: #### L 100.0500, L500.2500 #### [facility] [address] [place], [address] Hematocrit (Bld) [Volume fraction] 30.4 % Low 37-47 [facility] Comment on above: Order Comment: 104.1 Performed By: #### L 100.0500, L500.2500 #### [facility] [address] [place], [address] Hemoglobin (Bld) [Mass/Vol] 9.6 g/dL Low 12.0-15.0 [facility] Comment on above: Order Comment: 104.1 Performed By: #### L 100.0500, L500.2500 #### [facility] [address] [place], [address] MCH (RBC) [Entitic mass] 27.4 pg Normal 27.0-32.0 [facility] Comment on above: Order Comment: 104.1 Performed By: #### L 100.0500, L500.2500 #### [facility] [address] [place], [address] MCHC (RBC) [Mass/Vol] 31.6 g/dL Low 32-36 [facility] Comment on above: Order Comment: 104.1 Performed By: #### L 100.0500, L500.2500 #### [facility] [address] [place], [address] MCV (RBC) [Entitic vol] 86.9 fL Normal 81-99 [facility] Comment on above: Order Comment: 104.1 Performed By: #### L 100.0500, L500.2500 #### [facility] [address] [place], [address] Platelet mean volume (Bld) [Entitic vol] 10.3 fL Normal 6.2-12.0 [facility] Comment on above: Order Comment: 104.1 Performed By: #### L 100.0500, L500.2500 #### [facility] [address] [place], [address] Platelets (Bld) [#/Vol] 408 10*3/uL Normal 150-450 [facility] Comment on above: Order Comment: 104.1 Performed By: #### L 100.0500, L500.2500 #### [facility] [address] [place], [address] RBC (Bld) [#/Vol] 3.50 10*6/uL Low 4.2-5.4 [facility] Comment on above: Order Comment: 104.1 Performed By: #### L 100.0500, L500.2500 #### [facility] [address] [place], [address] RDW SD 56.2 fl High 35.1-43.9 [facility] Comment on above: Order Comment: 104.1 Performed By: #### L 100.0500, L500.2500 #### [facility] [address] [place], [address] WBC (Bld) [#/Vol] 6.4 10*3/uL Normal 4.4-11.0 [facility] Comment on above: Order Comment: 104.1 Performed By: #### L 100.0500, L500.2500 #### [facility] [address] [place], [address] Carbon dioxide, total [Moles /volume] in Central venous bloodOrdered By: Megan Beebe on 10-08-2024 CO2 [Moles/Vol] 20.0 mmol/L Low 21.0-32.0 [facility] Chloride assayOrdered By: Johnathan Guzman on 10-08-2024 Chloride [Moles/Vol] 106 mmol/L 98-108 [facility] Erythrocyte distribution wid th ratioOrdered By: Megan Beebe on 10-08-2024 Erythrocyte distribution width (RBC) [Ratio] 17.5 % High 11.6-14.6 [facility] Erythrocyte distribution wid th standard deviationOrdered By: Megan Beebe on 10-08-2024 Erythrocyte distribution width (RBC) [Entitic vol] 56.2 fL High 35.1-43.9 [facility] GFR/1.73 sq M.predicted gricelda g non-blacks MDRD (S/P/Bld) [Vol rate/Area]Ordered By: Megan Beebe on 10-08-2024 Estimated GFR (MDRD) Non-Af Amer 52 Low >60 [facility] Comment on above: mL/min/1.73m2 CKD-EP I Creatinine Equation (2020) Hematocrit Auto (Bld) [Volum e fraction]Ordered By: Megan Beebe on 10-08-2024 Hematocrit (Bld) [Volume fraction] 30.4 % Low 37-47 [facility] Hemoglobin measurementOrdere d By: Megan Beebe on 10-08-2024 Hemoglobin (Bld) [Mass/Vol] 9.6 g/dL Low 12.0-15.0 [facility] MCV (mean corpuscular volume ) determinationOrdered By: Megan Beebe on 10-08-2024 MCV (RBC) [Entitic vol] 86.9 fL 81-99 [facility] Mean corpuscular hemoglobin (MCH) determinationOrdered By: Megan Beebe on 10-08-2024 MCH (RBC) [Entitic mass] 27.4 pg 27.0-32.0 [facility] Mean corpuscular hemoglobin concentration (MCHC) determinationOrdered By: Meagn Beebe on 10-08-2024 MCHC (RBC) [Mass/Vol] 31.6 g/dL Low 32-36 [facility] Mean platelet volume determi nationOrdered By: Mgean Beebe on 10-08-2024 Platelet mean volume (Bld) [Entitic vol] 10.3 fL 6.2-12.0 [facility] Platelet countOrdered By: Johnathan Guzman on 10-08-2024 Platelets (Bld) [#/Vol] 408 10*3/uL 150-450 [facility] Potassium (Unsp spec) [Mass/ Vol]Ordered By: Megan Beebe on 10-08-2024 Potassium [Moles/Vol] 4.3 mmol/L 3.3-5.1 [facility] Comment on above: Hemolysis present, R esults could be affected. RBC Auto (Bld) [#/Vol]Ordere d By: Megan Beebe on 10-08-2024 RBC (Bld) [#/Vol] 3.50 10*6/uL Low 4.2-5.4 [facility] Serum creatinine measurement (mass/volume)Ordered By: Megan Beebe on 10-08-2024 Creatinine [Mass/Vol] 1.05 mg/dL 0.70-1.20 [facility] Serum glucose measurement (m ass/volume)Ordered By: Megan Beebe on 10-08-2024 Glucose [Mass/Vol] 98 mg/dL 70-99 [facility] Serum or plasma calcium reyna urement (mass/volume)Ordered By: Megan Beebe on 10-08-2024 Calcium [Mass/Vol] 9.0 mg/dL 7.6-11.0 [facility] Serum or plasma urea nitroge n measurement (mass/volume)Ordered By: Megan Beebe on 10-08-2024 Urea nitrogen [Mass/Vol] 17 mg/dL 4-19 [facility] Sodium levelOrdered By: Juan C Beebe on 10-08-2024 Sodium [Moles/Vol] 137 mmol/L 133-145 [facility] White blood cell (WBC) count Ordered By: Megan Beebe on 10-08-2024 WBC (Bld) [#/Vol] 6.4 10*3/uL 4.4-11.0 [facility] BSCAN OD (RIGHT EYE)on 10-01 [facility] Radiology Study observation (narrative) [facility]ar[facility]it [facility] BUN/creatinine ratioOrdered By: Megan Beebe on 09-17-2024 Urea nitrogen/Creatinine [Mass ratio] 15.7 mg/mg 10-20 [facility] Basic Metabolic Profile (BMP )on 09-17-2024 Anion gap [Moles/Vol] 10 mmol/L Normal 5-15 [facility] Comment on above: Order Comment: 104-1 Performed By: #### L 798.8601 #### [facility] [address] [place], [address] BUN/CRE 15.7 RATIO Normal 10-20 [facility] Comment on above: Order Comment: 104-1 Performed By: #### L 300.3900 #### [facility] [address] [place], [address] Calcium [Mass/Vol] 9.0 mg/dL Normal 7.6-11.0 [facility] Comment on above: Order Comment: 104-1 Performed By: #### L 300.3900 #### [facility] [address] [place], [address] Chloride [Moles/Vol] 108 mmol/L Normal 96-108 [facility] Comment on above: Order Comment: 104-1 Performed By: #### L 300.3900 #### [facility] [address] [place], [address] CO2 [Moles/Vol] 21.6 mmol/L Low 22.0-29.0 [facility] Comment on above: Order Comment: 104-1 Performed By: #### L 300.3900 #### [facility] [address] [place], [address] Creatinine [Mass/Vol] 1.03 mg/dL Normal 0.70-1.20 [facility] Comment on above: Order Comment: 104-1 Performed By: #### L 300.3900 #### [facility] [address] [place], [address] GFR/1.73 sq M.predicted among non-blacks MDRD (S/P/Bld) [Vol rate/Area] 54 mL/min/{1.73_m2} Low >60 [facility] Comment on above: Order Comment: 104-1 Result Comment: mL/m in/1.73m2 CKD-EPI Creatinine Equation (2020) Performed By: #### L 300.3900 #### [facility] [address] [place], [address] Glucose [Mass/Vol] 90 mg/dL Normal 70-99 [facility] Comment on above: Order Comment: 104-1 Performed By: #### L 300.3900 #### [facility] [address] [place], [address] Potassium [Moles/Vol] 4.5 mmol/L Normal 3.3-5.1 [facility] Comment on above: Order Comment: 104-1 Performed By: #### L 300.3900 #### [facility] [address] [place], [address] Sodium [Moles/Vol] 140 mmol/L Normal 133-145 [facility] Comment on above: Order Comment: 104-1 Performed By: #### L 300.3900 #### [facility] [address] [place], [address] Urea nitrogen [Mass/Vol] 16 mg/dL Normal 4-19 [facility] Comment on above: Order Comment: 104-1 Performed By: #### L 300.3900 #### [facility] [address] [place], [address] Carbon dioxide measurementOr dered By: Megan Beebe on 09-17-2024 CO2 [Moles/Vol] 21.6 mmol/L Low 22.0-29.0 [facility] Chloride measurementOrdered By: Megan Beebe on 09-17-2024 Chloride [Moles/Vol] 108 mmol/L 96-108 [facility] GFR/1.73 sq M.predicted gricelda g non-blacks MDRD (S/P/Bld) [Vol rate/Area]Ordered By: Megan Beebe on 09-17-2024 Estimated GFR (MDRD) Non-Af Amer 54 Low >60 [facility] Comment on above: mL/min/1.73m2 CKD-EP I Creatinine Equation (2020) Serum creatinine measurement (mass/volume)Ordered By: Megan Beebe on 09-17-2024 Creatinine [Mass/Vol] 1.03 mg/dL 0.70-1.20 [facility] Serum glucose measurement (m ass/volume)Ordered By: Megan Beebe on 09-17-2024 Glucose [Mass/Vol] 90 mg/dL 70-99 [facility] Serum or plasma anion gap de termination (moles/volume)Ordered By: Megan Beebe on 09-17-2024 Anion gap [Moles/Vol] 10 mmol/L 5-15 [facility] Serum or plasma calcium reyna urement (mass/volume)Ordered By: Megan Beebe on 09-17-2024 Calcium [Mass/Vol] 9.0 mg/dL 7.6-11.0 [facility] Serum or plasma potassium me asurementOrdered By: Megan Beebe on 09-17-2024 Potassium [Moles/Vol] 4.5 mmol/L 3.3-5.1 [facility] Serum or plasma sodium measu rement (moles/volume)Ordered By: Megan Beebe on 09-17-2024 Sodium [Moles/Vol] 140 mmol/L 133-145 [facility] Serum or plasma urea nitroge n measurement (mass/volume)Ordered By: Megan Beebe on 09-17-2024 Urea nitrogen [Mass/Vol] 16 mg/dL 4-19 [facility] Basic Metabolic Profile (BMP )on 09-10-2024 BUN/CRE 17.9 RATIO Normal 10-20 [facility] Comment on above: Order Comment: 104.1 Performed By: #### L 9200.0000 #### [facility] [address] [place], [place], [address] (307 CA,Total 9.0 mg/dL Normal 8.5-10.1 [facility] Comment on above: Order Comment: 104.1 Performed By: #### L 9200.0000 #### [facility] [address] [place], [address] Chloride [Moles/Vol] 108 mmol/L High 98-107 [facility] Comment on above: Order Comment: 104.1 Performed By: #### L 9200.0000 #### [facility] [address] [place], [address] CO2 [Moles/Vol] 24.0 mmol/L Normal 21.0-32.0 [facility] Comment on above: Order Comment: 104.1 Performed By: #### L 9200.0000 #### [facility] [address] [place], [address] Creatinine [Mass/Vol] 1.23 mg/dL High 0.55-1.02 [facility] Comment on above: Order Comment: 104.1 Result Comment: The validity of the calculated GFR GFRAA in patients over 70 years has not been determined. Clinical correlation is essential. Performed By: #### L 9200.0000 #### [facility] [address] [place], [address] EST GFR - AA 53 mL/min Low >60 [facility] Comment on above: Order Comment: 104.1 Result Comment: Afri can [place] GFR Calc Performed By: #### L 9200.0000 #### [facility] [address] [place], [address] GAP 5 Normal 5-15 [facility] Comment on above: Order Comment: 104.1 Performed By: #### L 9200.0000 #### [facility] [address] [place], [address] GFR/1.73 sq M.predicted among non-blacks MDRD (S/P/Bld) [Vol rate/Area] 44 mL/min/{1.73_m2} Low >60 [facility] Comment on above: Order Comment: 104.1 Result Comment: Non- GFR Calc Performed By: #### L 9200.0000 #### [facility] [address] [place], [address] Glucose [Mass/Vol] 98 mg/dL Normal 74-106 [facility] Comment on above: Order Comment: 104.1 Performed By: #### L 9200.0000 #### [facility] [address] [place], [address] Potassium [Moles/Vol] 4.5 mmol/L Normal 3.5-5.1 [facility] Comment on above: Order Comment: 104.1 Performed By: #### L 9200.0000 #### [facility] [address] [place], [address] Sodium [Moles/Vol] 137 mmol/L Normal 136-145 [facility] Comment on above: Order Comment: 104.1 Performed By: #### L 9200.0000 #### [facility] [address] [place], [address] Urea nitrogen [Mass/Vol] 22 mg/dL High 7-18 [facility] Comment on above: Order Comment: 104.1 Performed By: #### L 9200.0000 #### [facility] [address] [place], [address] Blood urea nitrogen (BUN)/cr eatinine ratioOrdered By: Megan Beebe on 09-10-2024 Urea nitrogen/Creatinine [Mass ratio] 17.9 mg/mg 10-20 [facility] CBC-Complete Blood Cnt No Di ffon 09-10-2024 Erythrocyte distribution width (RBC) [Ratio] 17.8 % High 11.6-14.6 [facility] Comment on above: Order Comment: 104.1 Performed By: #### L [id number] #### [facility] Laboratory [address] [place], [address] Hematocrit (Bld) [Volume fraction] 31.9 % Low 37-47 [facility] Comment on above: Order Comment: 104.1 Performed By: #### L [id number] #### [facility] Laboratory [address] [place], [address] Hemoglobin (Bld) [Mass/Vol] 9.7 g/dL Low 12.0-15.0 [facility] Comment on above: Order Comment: 104.1 Performed By: #### L [id number] #### [facility] Laboratory [address] [place], [address] MCH (RBC) [Entitic mass] 26.1 pg Low 27.0-32.0 [facility] Comment on above: Order Comment: 104.1 Performed By: #### L [id number] #### [facility] Laboratory [address] [place], [address] MCHC (RBC) [Mass/Vol] 30.4 g/dL Low 32-36 [facility] Comment on above: Order Comment: 104.1 Performed By: #### L [id number] #### [facility] Laboratory [address] [place], [address] MCV (RBC) [Entitic vol] 85.8 fL Normal 81-99 [facility] Comment on above: Order Comment: 104.1 Performed By: #### L [id number] #### [facility] Laboratory [address] [place], [address] Platelet mean volume (Bld) [Entitic vol] 9.5 fL Normal 6.2-12.0 [facility] Comment on above: Order Comment: 104.1 Performed By: #### L [id number] #### [facility] Laboratory [address] [place], [address] Platelets (Bld) [#/Vol] 485 10*3/uL High 150-450 [facility] Comment on above: Order Comment: 104.1 Performed By: #### L [id number] #### [facility] Laboratory [address] [place], [address] RBC (Bld) [#/Vol] 3.72 10*6/uL Low 4.2-5.4 [facility] Comment on above: Order Comment: 104.1 Performed By: #### L [id number] #### [facility] Laboratory [address] [place], [address] RDW SD 55.2 fl High 35.1-43.9 [facility] Comment on above: Order Comment: 104.1 Performed By: #### L [id number] #### [facility] Laboratory [address] [place], [address] WBC (Bld) [#/Vol] 7.7 10*3/uL Normal 4.4-11.0 [facility] Comment on above: Order Comment: 104.1 Performed By: #### L [id number] #### [facility] Laboratory [address] [place], [address] Carbon dioxide measurementOr dered By: Megan Beebe on 09-10-2024 CO2 [Moles/Vol] 24.0 mmol/L 21.0-32.0 [facility] Chloride measurementOrdered By: Megan Beebe on 09-10-2024 Chloride [Moles/Vol] 108 mmol/L High 98-107 [facility] Erythrocyte distribution wid th ratioOrdered By: Megan Beebe on 09-10-2024 Erythrocyte distribution width (RBC) [Ratio] 17.8 % High 11.6-14.6 [facility] Erythrocyte distribution wid th standard deviationOrdered By: Megan Beebe on 09-10-2024 Erythrocyte distribution width (RBC) [Entitic vol] 55.2 fL High 35.1-43.9 [facility] Estimated glomerular filtrat ion rate (GFR) AmericanOrdered By: Megan Beebe on 09-10-2024 Estimated GFR (MDRD) Amer 53 mL/min Low >60 [facility] Comment on above: GFR Calc Glomerular filtration rate ( GFR) estimationOrdered By: Megan Beebe on 09-10-2024 Estimated GFR (MDRD) Non-Af Amer 44 mL/min Low >60 [facility] Comment on above: Non- GFR Calc Glucose measurementOrdered B y: Megan Beebe on 09-10-2024 Glucose [Mass/Vol] 98 mg/dL 74-106 [facility] Hematocrit Auto (Bld) [Volum e fraction]Ordered By: Megan Beebe on 09-10-2024 Hematocrit (Bld) [Volume fraction] 31.9 % Low 37-47 [facility] Hemoglobin measurementOrdere d By: Megan Beebe on 09-10-2024 Hemoglobin (Bld) [Mass/Vol] 9.7 g/dL Low 12.0-15.0 [facility] MCV (mean corpuscular volume ) determinationOrdered By: Megan Beebe on 09-10-2024 MCV (RBC) [Entitic vol] 85.8 fL 81-99 [facility] Mean corpuscular hemoglobin (MCH) determinationOrdered By: Megan Beebe on 09-10-2024 MCH (RBC) [Entitic mass] 26.1 pg Low 27.0-32.0 [facility] Mean corpuscular hemoglobin concentration (MCHC) determinationOrdered By: Megan Beebe on 09-10-2024 MCHC (RBC) [Mass/Vol] 30.4 g/dL Low 32-36 [facility] Mean platelet volume determi nationOrdered By: Megan Beebe on 09-10-2024 Platelet mean volume (Bld) [Entitic vol] 9.5 fL 6.2-12.0 [facility] Platelet countOrdered By: Johnathan Guzman on 09-10-2024 Platelets (Bld) [#/Vol] 485 10*3/uL High 150-450 [facility] Potassium measurementOrdered By: Megan Beebe on 09-10-2024 Potassium [Moles/Vol] 4.5 mmol/L 3.5-5.1 [facility] RBC Auto (Bld) [#/Vol]Ordere d By: Megan Beebe on 09-10-2024 RBC (Bld) [#/Vol] 3.72 10*6/uL Low 4.2-5.4 [facility] Serum anion gap measurementO rdered By: Megan Beebe on 09-10-2024 Anion gap [Moles/Vol] 5 mmol/L 5-15 [facility] Serum or plasma calcium reyna urement (mass/volume)Ordered By: Megan Beebe on 09-10-2024 Calcium [Mass/Vol] 9.0 mg/dL 8.5-10.1 [facility] Serum or plasma creatinine m easurement (mass/volume)Ordered By: Megan Beebe on 09-10-2024 Creatinine [Mass/Vol] 1.23 mg/dL High 0.55-1.02 [facility] Comment on above: The validity of the calculated GFR & GFRAA in patients over 70 years has not been determined. Clinical correlation is essential. Serum or plasma urea nitroge n measurement (mass/volume)Ordered By: Megan Beebe on 09-10-2024 Urea nitrogen [Mass/Vol] 22 mg/dL High 7-18 [facility] Sodium levelOrdered By: Juan C Beebe on 09-10-2024 Sodium [Moles/Vol] 137 mmol/L 136-145 [facility] White blood cell (WBC) count Ordered By: Megan Beebe on 09-10-2024 WBC (Bld) [#/Vol] 7.7 10*3/uL 4.4-11.0 [facility] Urine Cultureon 09-06-2024 URC UNKNOWN METHOD OF COLLECTION Proteus mirabilis [place] Count 50,000-80,000 Klebsiella pneumoniae sp pneum Klebsiella [...] TMP SMX Islt AGATA <=20 S Normal [facility] Comment on above: Performed By: #### L [id number] #### [facility] Laboratory [address] [place], [address] Urinalysis, Completeon 09-04 BACTERIA 4+ /hpf Normal None Seen [facility] Comment on above: Order Comment: UNKNO WN METHOD OF COLLECTIONCLEAN CATCH Performed By: #### L [id number] #### [facility] Laboratory [address] [place], [address] EPI,SQUAMOUS 10-25 SEEN Normal 5-10 [facility] Comment on above: Order Comment: UNKNO WN METHOD OF COLLECTIONCLEAN CATCH Performed By: #### L [id number] #### [facility] Laboratory [address] [place], [address] Mucus Ql (Urine sed) 1+ /hpf Normal [facility] Comment on above: Order Comment: UNKNO WN METHOD OF COLLECTIONCLEAN CATCH Performed By: #### L [id number] #### [facility] [address] [place], [address] RBC 5-10 SEEN Normal 0-5 [facility] Comment on above: Order Comment: UNKNO WN METHOD OF COLLECTIONCLEAN CATCH Performed By: #### L [id number] #### [facility] [address] [place], [address] WBC 50-100 SEEN Normal 0-5 [facility] Comment on above: Order Comment: UNKNO WN METHOD OF COLLECTIONCLEAN CATCH Performed By: #### L [id number] #### [facility] Laboratory [address] [place], [address] Basic Metabolic Profile (BMP )on 09-03-2024 BUN/CRE 20.7 RATIO High 10-20 [facility] Comment on above: Order Comment: 104-1 Performed By: #### L [id number] #### [facility] Laboratory [address] [place], [address] CA,Total 9.4 mg/dL Normal 8.5-10.1 [facility] Comment on above: Order Comment: 104-1 Performed By: #### L [id number] #### [facility] Laboratory [address] [place] [place], [address] Chloride [Moles/Vol] 109 mmol/L High 98-107 [facility] Comment on above: Order Comment: 104-1 Performed By: #### L [id number] #### [facility] [address] [place], [address] CO2 [Moles/Vol] 21.0 mmol/L Normal 21.0-32.0 [facility] Comment on above: Order Comment: 104-1 Performed By: #### L [id number] #### [facility] [address] [place], [address] Creatinine [Mass/Vol] 0.92 mg/dL Normal 0.55-1.02 [facility] Comment on above: Order Comment: 104-1 Result Comment: The validity of the calculated GFR GFRAA in patients over 70 years has not been determined. Clinical correlation is essential. Performed By: #### L [id number] #### [facility] [address] [place], [address] EST GFR - AA 75 mL/min Normal >60 [facility] Comment on above: Order Comment: 104-1 Result Comment: Afri can [place] GFR Calc Performed By: #### L [id number] #### [facility] [address] [place], [address] GAP 9 Normal 5-15 [facility] Comment on above: Order Comment: 104-1 Performed By: #### L [id number] #### [facility] Laboratory [address] [place], [address] GFR/1.73 sq M.predicted among non-blacks MDRD (S/P/Bld) [Vol rate/Area] 62 mL/min/{1.73_m2} Normal >60 [facility] Comment on above: Order Comment: 104-1 Result Comment: Non- GFR Calc Performed By: #### L [id number] #### [facility] Laboratory [address] [place], [address] Glucose [Mass/Vol] 115 mg/dL High 74-106 [facility] Comment on above: Order Comment: 104-1 Result Comment: Fast ing Glucose result from 100 to 125 mg/dL suggests IMPAIRED HOMEOSTASIS per A.D.A. criteria. Performed By: #### L [id number] #### [facility] [address] [place], [address] Potassium [Moles/Vol] 4.4 mmol/L Normal 3.5-5.1 [facility] Comment on above: Order Comment: 104-1 Performed By: #### L [id number] #### [facility] [address] [place], [address] Sodium [Moles/Vol] 139 mmol/L Normal 136-145 [facility] Comment on above: Order Comment: 104-1 Performed By: #### L [id number] #### [facility] [address] [place], [address] Urea nitrogen [Mass/Vol] 19 mg/dL High 7-18 [facility] Comment on above: Order Comment: 104-1 Performed By: #### L [id number] #### [facility] [address] [place], [address] Bilirubin Test strip Ql (U)O rdered By: Megan Beebe on 09-03-2024 Bilirubin Ql (U) Negative Negative [facility] Blood urea nitrogen (BUN)/cr eatinine ratioOrdered By: Megan Beebe on 09-03-2024 Urea nitrogen/Creatinine [Mass ratio] 20.7 mg/mg High 10-20 [facility] CBC-Complete Blood Cnt No Di ffon 09-03-2024 Erythrocyte distribution width (RBC) [Ratio] 17.9 % High 11.6-14.6 [facility] Comment on above: Order Comment: 104-1 Performed By: #### L [id number] #### [facility] Laboratory [address] [place], [address] Hematocrit (Bld) [Volume fraction] 30.8 % Low 37-47 [facility] Comment on above: Order Comment: 104-1 Performed By: #### L [id number] #### [facility] Laboratory [address] [place], [address] Hemoglobin (Bld) [Mass/Vol] 9.5 g/dL Low 12.0-15.0 [facility] Comment on above: Order Comment: 104-1 Performed By: #### L [id number] #### [facility] Laboratory [address] [place], [address] MCH (RBC) [Entitic mass] 25.7 pg Low 27.0-32.0 [facility] Comment on above: Order Comment: 104-1 Performed By: #### L [id number] #### [facility] Laboratory [address] [place], [address] MCHC (RBC) [Mass/Vol] 30.8 g/dL Low 32-36 [facility] Comment on above: Order Comment: 104-1 Performed By: #### L [id number] #### [facility] [address] [place], [address] MCV (RBC) [Entitic vol] 83.5 fL Normal 81-99 [facility] Comment on above: Order Comment: 104-1 Performed By: #### L [id number] #### [facility] [address] [place], [address] Platelet mean volume (Bld) [Entitic vol] 10.2 fL Normal 6.2-12.0 [facility] Comment on above: Order Comment: 104-1 Performed By: #### L [id number] #### [facility] Laboratory [address] [place], [address] Platelets (Bld) [#/Vol] 431 10*3/uL Normal 150-450 [facility] Comment on above: Order Comment: 104-1 Performed By: #### L [id number] #### [facility] Laboratory [address] [place], [address] RBC (Bld) [#/Vol] 3.69 10*6/uL Low 4.2-5.4 [facility] Comment on above: Order Comment: 104-1 Performed By: #### L [id number] #### [facility] [address] [place], [address] RDW SD 54.3 fl High 35.1-43.9 [facility] Comment on above: Order Comment: 104-1 Performed By: #### L [id number] #### [facility] [address] [place], [address] WBC (Bld) [#/Vol] 10.6 10*3/uL Normal 4.4-11.0 [facility] Comment on above: Order Comment: 104-1 Performed By: #### L [id number] #### [facility] [address] [place], [address] Carbon dioxide measurementOr dered By: Megan Beebe on 09-03-2024 CO2 [Moles/Vol] 21.0 mmol/L 21.0-32.0 [facility] Chloride measurementOrdered By: Megan Beebe on 09-03-2024 Chloride [Moles/Vol] 109 mmol/L High 98-107 [facility] Epithelial cells.squamous LM Ql (Urine sed)Ordered By: Megan Beebe on 09-03-2024 Epithelial cells.squamous LM.HPF (Urine sed) [#/Area] 10 /[HPF] 5-10 [facility] Erythrocyte distribution wid th ratioOrdered By: Megan Beebe on 09-03-2024 Erythrocyte distribution width (RBC) [Ratio] 17.9 % High 11.6-14.6 [facility] Erythrocyte distribution wid th standard deviationOrdered By: Megan Beebe on 09-03-2024 Erythrocyte distribution width (RBC) [Entitic vol] 54.3 fL High 35.1-43.9 [facility] Estimated glomerular filtrat ion rate (GFR) AmericanOrdered By: Megan Beebe on 09-03-2024 Estimated GFR (MDRD) Amer 75 mL/min >60 [facility] Comment on above: GFR Calc Glomerular filtration rate ( GFR) estimationOrdered By: Megan Beebe on 09-03-2024 Estimated GFR (MDRD) Non-Af Amer 62 mL/min >60 [facility] Comment on above: Non- GFR Calc Glucose Ql (U)Ordered By: Johnathan Guzman on 09-03-2024 Urine Glucose (UA) Normal mg/dl Normal [facility] Glucose measurementOrdered B y: Megan Beebe on 09-03-2024 Glucose [Mass/Vol] 115 mg/dL High 74-106 [facility] Comment on above: Fasting Glucose resu lt from 100 to 125 mg/dL suggests IMPAIRED HOMEOSTASIS per A.D.A. criteria. Hematocrit Auto (Bld) [Volum e fraction]Ordered By: Megan Beebe on 09-03-2024 Hematocrit (Bld) [Volume fraction] 30.8 % Low 37-47 [facility] Hemoglobin measurementOrdere d By: Megan Beebe on 09-03-2024 Hemoglobin (Bld) [Mass/Vol] 9.5 g/dL Low 12.0-15.0 [facility] Ketones Test strip Ql (U)Ord ered By: Megan Beebe on 09-03-2024 Ketones Ql (U) 5 mg/dl High Negative [facility] MCV (mean corpuscular volume ) determinationOrdered By: Megan Beebe on 09-03-2024 MCV (RBC) [Entitic vol] 83.5 fL 81-99 [facility] Mean corpuscular hemoglobin (MCH) determinationOrdered By: Megan Beebe on 09-03-2024 MCH (RBC) [Entitic mass] 25.7 pg Low 27.0-32.0 [facility] Mean corpuscular hemoglobin concentration (MCHC) determinationOrdered By: Megan Beebe on 09-03-2024 MCHC (RBC) [Mass/Vol] 30.8 g/dL Low 32-36 [facility] Mean platelet volume determi nationOrdered By: Megan Beebe on 09-03-2024 Platelet mean volume (Bld) [Entitic vol] 10.2 fL 6.2-12.0 [facility] Microscopic analysis of urin e for red blood cells (RBC)Ordered By: Megan Beebe on 09-03-2024 Urine RBC 5-10 SEEN /hpf 0-5 [facility] Mucus LM Ql (Urine sed)Order ed By: Megan Beebe on 09-03-2024 Mucus Ql (Urine sed) 1+ /hpf [facility] Nitrite Test strip Ql (U)Ord ered By: Megan Beebe on 09-03-2024 Nitrite Ql (U) Positive High Negative [facility] Platelet countOrdered By: Johnathan Guzman on 09-03-2024 Platelets (Bld) [#/Vol] 431 10*3/uL 150-450 [facility] Potassium measurementOrdered By: Megan Beebe on 09-03-2024 Potassium [Moles/Vol] 4.4 mmol/L 3.5-5.1 [facility] Protein Test strip Ql (U)Ord ered By: Megan Beebe on 09-03-2024 Protein Ql (U) 100 mg/dl High Negative [facility] RBC Auto (Bld) [#/Vol]Ordere d By: Megan Beebe on 09-03-2024 RBC (Bld) [#/Vol] 3.69 10*6/uL Low 4.2-5.4 [facility] Serum anion gap measurementO rdered By: Megan Beebe on 09-03-2024 Anion gap [Moles/Vol] 9 mmol/L 5-15 [facility] Serum or plasma calcium reyna urement (mass/volume)Ordered By: Megan Beebe on 09-03-2024 Calcium [Mass/Vol] 9.4 mg/dL 8.5-10.1 [facility] Serum or plasma creatinine m easurement (mass/volume)Ordered By: Megan Beebe on 09-03-2024 Creatinine [Mass/Vol] 0.92 mg/dL 0.55-1.02 [facility] Comment on above: The validity of the calculated GFR & GFRAA in patients over 70 years has not been determined. Clinical correlation is essential. Serum or plasma urea nitroge n measurement (mass/volume)Ordered By: Megan Beebe on 09-03-2024 Urea nitrogen [Mass/Vol] 19 mg/dL High 7-18 [facility] Sodium levelOrdered By: Juan C Beebe on 09-03-2024 Sodium [Moles/Vol] 139 mmol/L 136-145 [facility] Urine blood detectionOrdered By: Megan Beebe on 09-03-2024 Urine Occult Blood 150 /ul High Negative [facility] Urine clarityOrdered By: Pola Beebe on 09-03-2024 Clarity (U) Cloudy Clear [facility] Urine color determinationOrd ered By: Megan Beebe on 09-03-2024 Color (U) Yellow Yellow [facility] Urine cultureOrdered By: Pola Beebe on 09-03-2024 Bacteria identified Cx Nom (U) Proteus mirabilis Abnormal [facility] Bacteria identified Cx Nom (U) Klebsiella pneumoniae sp pneum Abnormal [facility] Bacteria identified Cx Nom (U) Proteus mirabilis Abnormal [facility] Bacteria identified Cx Nom (U) Klebsiella pneumoniae sp pneum Abnormal [facility] Urine leukocyte esterase det ection by dipstickOrdered By: Megan Beebe on 09-03-2024 Leukocyte esterase Test strip Ql (U) 500 /ul High Negative [facility] Urine pHOrdered By: Megan jimenez on 09-03-2024 pH (U) 6.0 [pH] 5.0 - 8.0 [facility] Urine sediment bacteria coun t by microscopy (number/high power field)Ordered By: Megan Beebe on 09-03-2024 Bacteria LM.HPF (Urine sed) [#/Area] 4 /[HPF] None Seen [facility] Urine specific gravity measu rementOrdered By: Megan Beebe on 09-03-2024 Specific gravity (U) [Rel density] 1.020 1.002-1.030 [facility] Urobilinogen Ql (U)Ordered B y: Megan Beebe on 09-03-2024 Urine Urobilinogen Normal mg/dl Normal [facility] White blood cell (WBC) count Ordered By: Megan Beebe on 09-03-2024 WBC (Bld) [#/Vol] 10.6 10*3/uL 4.4-11.0 [facility] White blood cell countOrdere d By: Megan Beebe on 09-03-2024 Urine WBC 50-100 SEEN /hpf 0-5 [facility] [id number] 08-27-2024 [id number] Patient Choice Patient Name: MEL POP Date of : 1940 Normal [facility] Progress Noteon 08-22-2024 Progress Note Normal [facility] Albumin to globulin ratioOrd ered By: Megan Beebe on 08-20-2024 Albumin/Globulin [Mass ratio] 0.7 {ratio} Low 0.9-2.4 [facility] Bilirubin, totalOrdered By: Megan Beebe on 08-20-2024 Bilirubin [Mass/Vol] 0.60 mg/dL 0.20-1.00 [facility] Comment on above: For patients on eltr ombopag therapy, use of Dimension [place] TBIL is not recommended. Blood urea nitrogen (BUN)/cr eatinine ratioOrdered By: Megan Beebe on 08-20-2024 Urea nitrogen/Creatinine [Mass ratio] 11.2 mg/mg 10-20 [facility] CBC-Complete Blood Cnt No Di ffon 08-20-2024 Erythrocyte distribution width (RBC) [Ratio] 19.2 % High 11.6-14.6 [facility] Comment on above: Performed By: #### L 100.0500, L500.4050 #### [facility] Laboratory [address] [place], [address] Hematocrit (Bld) [Volume fraction] 33.4 % Low 37-47 [facility] Comment on above: Performed By: #### L 100.0500, [id number] #### [facility] Laboratory [address] [place], [address] Hemoglobin (Bld) [Mass/Vol] 10.4 g/dL Low 12.0-15.0 [facility] Comment on above: Performed By: #### L 100.0500, [id number] #### [facility] Laboratory [address] [place], [address] MCH (RBC) [Entitic mass] 26.3 pg Low 27.0-32.0 [facility] Comment on above: Performed By: #### L 100.0500, L500.4050 #### [facility] Laboratory [address] [place], [address] MCHC (RBC) [Mass/Vol] 31.1 g/dL Low 32-36 [facility] Comment on above: Performed By: #### L 100.0500, L500.4050 #### [facility] [address] [place], [address] MCV (RBC) [Entitic vol] 84.6 fL Normal 81-99 [facility] Comment on above: Performed By: #### L 100.0500, L500.4050 #### [facility] [address] [place], [address] Platelet mean volume (Bld) [Entitic vol] 9.7 fL Normal 6.2-12.0 [facility] Comment on above: Performed By: #### L 100.0500, L500.4050 #### [facility] [address] [place], [address] Platelets (Bld) [#/Vol] 405 10*3/uL Normal 150-450 [facility] Comment on above: Performed By: #### L 100.0500, L500.4050 #### [facility] [address] [place], [address] RBC (Bld) [#/Vol] 3.95 10*6/uL Low 4.2-5.4 [facility] Comment on above: Performed By: #### L 100.0500, L500.4050 #### [facility] [address] [place], [address] RDW SD 58.9 fl High 35.1-43.9 [facility] Comment on above: Performed By: #### L 100.0500, L500.4050 #### [facility] [address] [place], [address] WBC (Bld) [#/Vol] 5.9 10*3/uL Normal 4.4-11.0 [facility] Comment on above: Performed By: #### L 100.0500, L500.4050 #### [facility] [address] [place], [address] Carbon dioxide measurementOr dered By: Megan Beebe on 08-20-2024 CO2 [Moles/Vol] 22.0 mmol/L 21.0-32.0 [facility] Chloride measurementOrdered By: Megan Beebe on 08-20-2024 Chloride [Moles/Vol] 109 mmol/L High 98-107 [facility] Comprehensive Metabolic Prof ilon 08-20-2024 Albumin [Mass/Vol] 2.7 g/dL Low 3.2-5.0 [facility] Comment on above: Performed By: #### L 100.0500, L500.4050 #### [facility] [address] [place], [address] Albumin/Globulin [Mass ratio] 0.7 {ratio} Low 0.9-2.4 [facility] Comment on above: Performed By: #### L 100.0500, L500.4050 #### [facility] [address] [place], [address] ALK P 117 U/L Normal 45-117 [facility] Comment on above: Performed By: #### L 100.0500, L500.4050 #### [facility] [address] [place] [place], [address] ALT [Catalytic activity/Vol] 18 U/L Normal 13-56 [facility] Comment on above: Performed By: #### L 100.0500, L500.4050 #### [facility] [address] [place], [address] AST [Catalytic activity/Vol] 18 U/L Normal 15-37 [facility] Comment on above: Result Comment: Slig ht Hemolysis, Result may be falsely increased. Performed By: #### L 100.0500, L500.4050 #### [facility] [address] [place], [address] Bilirubin [Mass/Vol] 0.60 mg/dL Normal 0.20-1.00 [facility] Comment on above: Result Comment: For patients on eltrombopag therapy, use of Dimension [place] TBIL is not recommended. Performed By: #### L 100.0500, L500.4050 #### [facility] [address] [place], [address] BUN/CRE 11.2 RATIO Normal 10-20 [facility] Comment on above: Performed By: #### L 100.0500, L500.4050 #### [facility] [address] [place], [address] CA,Total 9.0 mg/dL Normal 8.5-10.1 [facility] Comment on above: Performed By: #### L 100.0500, L500.4050 #### [facility] [address] [place] [place], [address] Chloride [Moles/Vol] 109 mmol/L High 98-107 [facility] Comment on above: Performed By: #### L 100.0500, L500.4050 #### [facility] [address] [place], [address] CO2 [Moles/Vol] 22.0 mmol/L Normal 21.0-32.0 [facility] Comment on above: Performed By: #### L 100.0500, L500.4050 #### [facility] [address] [place], [address] Creatinine [Mass/Vol] 0.98 mg/dL Normal 0.55-1.02 [facility] Comment on above: Result Comment: The validity of the calculated GFR GFRAA in patients over 70 years has not been determined. Clinical correlation is essential. Performed By: #### L 100.0500, L500.4050 #### [facility] [address] [place], [address] EST GFR - AA 69 mL/min Normal >60 [facility] Comment on above: Result Comment: Afri can Wallis[place] GFR Calc Performed By: #### L 100.0500, L500.4050 #### [facility] [address] [place], [address] GAP 7 Normal 5-15 [facility] Comment on above: Performed By: #### L 100.0500, L500.4050 #### [facility] [address] [place], [address] GFR/1.73 sq M.predicted among non-blacks MDRD (S/P/Bld) [Vol rate/Area] 57 mL/min/{1.73_m2} Low >60 [facility] Comment on above: Result Comment: Non- GFR Calc Performed By: #### L 100.0500, L500.4050 #### [facility] [address] [place], [address] Globulin (S) [Mass/Vol] 4.1 g/dL Normal 2.2-4.2 [facility] Comment on above: Performed By: #### L 100.0500, L500.4050 #### [facility] [address] [place], [address] Glucose [Mass/Vol] 97 mg/dL Normal 74-106 [facility] Comment on above: Performed By: #### L 100.0500, L500.4050 #### [facility] [address] [place], [address] Potassium [Moles/Vol] 4.2 mmol/L Normal 3.5-5.1 [facility] Comment on above: Result Comment: Slig ht Hemolysis, Result may be falsely increased. Performed By: #### L 100.0500, L500.4050 #### [facility] [address] [place], [address] Sodium [Moles/Vol] 138 mmol/L Normal 136-145 [facility] Comment on above: Performed By: #### L 100.0500, L500.4050 #### [facility] [address] [place], [address] T PROT 6.8 g/dL Normal 6.4-8.2 [facility] Comment on above: Performed By: #### L 100.0500, L500.4050 #### [facility] [address] [place], [address] Urea nitrogen [Mass/Vol] 11 mg/dL Normal 7-18 [facility] Comment on above: Performed By: #### L 100.0500, L500.4050 #### [facility] [address] [place], [address] Erythrocyte distribution wid th ratioOrdered By: Megan Beebe on 08-20-2024 Erythrocyte distribution width (RBC) [Ratio] 19.2 % High 11.6-14.6 [facility] Erythrocyte distribution wid th standard deviationOrdered By: Megan Beebe on 08-20-2024 Erythrocyte distribution width (RBC) [Entitic vol] 58.9 fL High 35.1-43.9 [facility] Estimated glomerular filtrat ion rate (GFR) AmericanOrdered By: Megan Beebe on 08-20-2024 Estimated GFR (MDRD) Amer 69 mL/min >60 [facility] Comment on above: GFR Calc Glomerular filtration rate ( GFR) estimationOrdered By: Megan Beebe on 08-20-2024 Estimated GFR (MDRD) Non-Af Amer 57 mL/min Low >60 [facility] Comment on above: Non- GFR Calc Glucose measurementOrdered B y: Megan Beebe on 08-20-2024 Glucose [Mass/Vol] 97 mg/dL 74-106 [facility] Hematocrit Auto (Bld) [Volum e fraction]Ordered By: Megan Beebe on 08-20-2024 Hematocrit (Bld) [Volume fraction] 33.4 % Low 37-47 [facility] Hemoglobin measurementOrdere d By: Megan Beebe on 08-20-2024 Hemoglobin (Bld) [Mass/Vol] 10.4 g/dL Low 12.0-15.0 [facility] Laboratory - Chemistry and C hemistry - challengeOrdered By: Megan Beebe on 08-20-2024 AST [Catalytic activity/Vol] 18 U/L 15-37 [facility] Comment on above: Slight Hemolysis, Re sult may be falsely increased. MCV (mean corpuscular volume ) determinationOrdered By: Megan Beebe on 08-20-2024 MCV (RBC) [Entitic vol] 84.6 fL 81-99 [facility] Mean corpuscular hemoglobin (MCH) determinationOrdered By: Megan Beebe on 08-20-2024 MCH (RBC) [Entitic mass] 26.3 pg Low 27.0-32.0 [facility] Mean corpuscular hemoglobin concentration (MCHC) determinationOrdered By: Megan Beebe on 08-20-2024 MCHC (RBC) [Mass/Vol] 31.1 g/dL Low 32-36 [facility] Mean platelet volume determi nationOrdered By: Megan Beebe on 08-20-2024 Platelet mean volume (Bld) [Entitic vol] 9.7 fL 6.2-12.0 [facility] Platelet countOrdered By: Johnathan Guzman on 08-20-2024 Platelets (Bld) [#/Vol] 405 10*3/uL 150-450 [facility] Potassium measurementOrdered By: Megan Beebe on 08-20-2024 Potassium [Moles/Vol] 4.2 mmol/L 3.5-5.1 [facility] Comment on above: Slight Hemolysis, Re sult may be falsely increased. RBC Auto (Bld) [#/Vol]Ordere d By: Megan Beebe on 08-20-2024 RBC (Bld) [#/Vol] 3.95 10*6/uL Low 4.2-5.4 [facility] Serum anion gap measurementO rdered By: Megan Beebe on 08-20-2024 Anion gap [Moles/Vol] 7 mmol/L 5-15 [facility] Serum globulin measurementOr dered By: Megan Beebe on 08-20-2024 Globulin (S) [Mass/Vol] 4.1 g/dL 2.2-4.2 [facility] Serum or plasma alanine hinojosa otransferase (ALT) measurementOrdered By: Megan Beebe on 08-20-2024 ALT [Catalytic activity/Vol] 18 U/L 13-56 [facility] Serum or plasma albumin reyna urement (mass/volume)Ordered By: Megan Beebe on 08-20-2024 Albumin [Mass/Vol] 2.7 g/dL Low 3.2-5.0 [facility] Serum or plasma alkaline silvia sphatase measurementOrdered By: Megan Beebe on 08-20-2024 ALP [Catalytic activity/Vol] 117 U/L 45-117 [facility] Serum or plasma calcium reyna urement (mass/volume)Ordered By: Megan Beebe on 08-20-2024 Calcium [Mass/Vol] 9.0 mg/dL 8.5-10.1 [facility] Serum or plasma creatinine m easurement (mass/volume)Ordered By: Megan Beebe on 08-20-2024 Creatinine [Mass/Vol] 0.98 mg/dL 0.55-1.02 [facility] Comment on above: The validity of the calculated GFR & GFRAA in patients over 70 years has not been determined. Clinical correlation is essential. Serum or plasma urea nitroge n measurement (mass/volume)Ordered By: Megan Beebe on 08-20-2024 Urea nitrogen [Mass/Vol] 11 mg/dL 7-18 [facility] Sodium levelOrdered By: Juan C Beebe on 08-20-2024 Sodium [Moles/Vol] 138 mmol/L 136-145 [facility] Total proteinOrdered By: Pola Beebe on 08-20-2024 Protein [Mass/Vol] 6.8 g/dL 6.4-8.2 [facility] White blood cell (WBC) count Ordered By: Megan Beebe on 08-20-2024 WBC (Bld) [#/Vol] 5.9 10*3/uL 4.4-11.0 [facility] [id number] 08-16-2024 [id number] Normal [facility] [id number] Normal [facility] [id number] MAR & Discharge med list transmitted to [facility] via [employer] per TCC request. Electronically signed by JESSICA Leone Normal [facility] [id number] Normal [facility] Laboratory - Chemistry and C hemistry - challengeon 08-16-2024 Glucose [Mass/Vol] 120 mg/dL High 70 - 100 mg/dL [facility] No Panel Informationon 08-16 Interpretation and review of laboratory results Abnormal [facility] Performed by: [facility], [address] [place] [address] CLIA ID: [id number] [facility] Nursing Noteon 08-16-2024 Nursing Note Patient picked up fo r transfer to [facility] by stretcher. Report already called to GENET Garcia. Normal [facility] Nursing Note Telephone report erin led to GENET Garcia at [facility]. Normal [facility] Progress Noteon 08-16-2024 Progress Note Normal [facility] 30on 08-15-2024 30 Normal [facility] [id number] 08-15-2024 [id number] Authorization is pending with [employer]. Ref# [id number] to be DC'd to [facility]. Dtr Fidel Sharma. CM to follow. Normal [facility] Progress Noteon 08-15-2024 Progress Note Normal [facility] 3008-14-2024 30 Normal [facility] [id number] 08-14-2024 [id number] Normal [facility] Progress Noteon 08-14-2024 Progress Note Normal [facility] Progress Note Normal [facility] Progress Note Normal [facility] 30on 08-13-2024 30 Normal [facility] 30 Normal [facility] [id number] 08-13-2024 [id number] Normal [facility] Progress Noteon 08-13-2024 Progress Note Normal [facility] Progress Note Normal [facility] 30on 08-12-2024 30 Normal [facility] Progress Noteon 08-12-2024 Progress Note Normal [facility] 30on 08-11-2024 30 Normal [facility] 30 Normal [facility] [id number] 08-11-2024 [id number] CM noted DC orders i n place, Dgt touring facilities over the weekend. [facility] pending acceptance, updates sent via careport. Normal [facility] Progress Noteon 08-11-2024 Progress Note Normal [facility] 30on 08-10-2024 30 Normal [facility] [id number] 08-10-2024 [id number] Normal [facility] Progress Noteon 08-10-2024 Progress Note Normal [facility] [id number] 08-09-2024 [id number] Normal [facility] [id number] Normal [facility] [id number] Updated [facility] [employer] per TCC request. Await review and response regarding ability to accept. TCC notified. Electronically signed by [facility] Aracelis Gardiner [facility] [phone] Patient is medically ready for dc. PT/OT both continuing to recommend SNF. [facility] manager hotel asked to start auth. Plan to dc back to [facility] SNF pending auth [facility] Progress Noteon 08-09-2024 Progress Note Normal [facility] [id number] 08-08-2024 [id number] Normal [facility] Progress Noteon 08-08-2024 Progress Note Normal [facility] Progress Note Normal [facility] Progress Note Normal [facility] 30on 08-07-2024 30 Normal [facility] 30 Normal [facility] 30 Normal [facility] [id number] 08-07-2024 [id number] [facility] Progress Noteon 08-07-2024 Progress Note Normal [facility] 30on 08-06-2024 30 Normal [facility] 30 Normal [facility] [id number] 08-06-2024 [id number] Pt cont's on IV AtBs '. Plan is for pt to return to [facility]. Auth and HECTOR needed prior to DC. CM to follow. [facility] [id number] [facility] Comprehensive metabolic 1998 panelon 08-06-2024 Albumin [Mass/Vol] 2.4 g/dL Low 3.4 - 4.8 g/dL [facility] ALP [Catalytic activity/Vol] 72 U/L 40 - 150 U/L [facility] ALT [Catalytic activity/Vol] 24 U/L NINF - 30 U/L [facility] Anion gap [Moles/Vol] 7 mmol/L 3 - 13 mmol/L [facility] AST [Catalytic activity/Vol] 21 U/L [facility]F - 34 U/L [facility] Bilirubin [Mass/Vol] 0.9 mg/dL NINF - 1.2 mg/dL [facility] Calcium [Mass/Vol] 8.4 mg/dL Low 8.8 - 10. 0 mg/dL [facility] Chloride [Moles/Vol] 115 mmol/L High 98 - 10 7 mmol/L [facility] CO2 [Moles/Vol] 17 mmol/L Low 23 - 31 mmol/L [facility] Creatinine [Mass/Vol] 0.91 mg/dL 0.57 - 1.11 mg/dL [facility] GFR/1.73 sq M.predicted (S/P/Bld) [Vol rate/Area] 62.3 mL/min - PINF [facility] Comment on above: Calculation based on the Chronic Kidney Disease Epidemiology Collaboration (CKD-EPI) equation refit without adjustment for race Glucose [Mass/Vol] 92 mg/dL 82 - 115 mg/dL [facility] Interpretation and review of laboratory results Abnormal [facility] Potassium [Moles/Vol] 3.8 mmol/L 3.5 - 5.1 mmol/L [facility] Comment on above: Plasma potassium chris ues may be up to 0.5 mmol/L lower than serum values. Protein [Mass/Vol] 5.5 g/dL Low 6.4 - 8.3 g/dL [facility] Sodium [Moles/Vol] 139 mmol/L 136 - 145 mmol/L [facility] Urea nitrogen [Mass/Vol] 9 mg/dL 9 - 23 mg/dL [facility] Consulton 08-06-2024 Consult Normal [facility] Progress Noteon 08-06-2024 Progress Note Normal [facility] Progress Note Normal [facility] 30on 08-05-2024 30 Normal [facility] CBC W Auto Differential pane l (Bld)Ordered By: Frank Milligan on 08-05-2024 Basophils (Bld) [#/Vol] 0 10*3/uL 0.0 - 0.2 10*3/uL [facility] Basophils/100 WBC (Bld) 0.3 % 0.0 - 2.0 % [facility] Eosinophils (Bld) [#/Vol] 0.1 10*3/uL 0.0 - 0.5 10*3/uL [facility] Eosinophils/100 WBC (Bld) 1.6 % 0.0 - 6.0 % [facility] Erythrocyte distribution width (RBC) [Ratio] 18.9 % High 11.5 - 15.0 % [facility] Hematocrit (Bld) [Volume fraction] 33.3 % Low 35.0 - 47.0 % [facility] Hemoglobin (Bld) [Mass/Vol] 10.3 g/dL Low 11.7 - 16.0 g/dL [facility] Immature granulocytes (Bld) [#/Vol] 0.1 10*3/uL High NINF - 0.1 10*3/uL [facility] Immature granulocytes/100 WBC (Bld) 0.7 % 0.0 - 2.0 % [facility] Interpretation and review of laboratory results Abnormal [facility] Lymphocytes (Bld) [#/Vol] 1.1 10*3/uL 1.0 - 4.3 10*3/uL [facility] Lymphocytes/100 WBC (Bld) 15.6 % 15.0 - 45.0 % [facility] MCH (RBC) [Entitic mass] 26 pg 26.0 - 34.0 pg [facility] MCHC (RBC) [Mass/Vol] 30.9 % 30.5 - 36.0 % [facility] MCV (RBC) [Entitic vol] 84.1 fL 77.0 - 99.0 fL [facility] Monocytes (Bld) [#/Vol] 0.7 10*3/uL 0.0 - 0.9 10*3/uL [facility] Monocytes/100 WBC (Bld) 9.9 % 5.0 - 13.0 % [facility] Neutrophils (Bld) [#/Vol] 5.3 10*3/uL 1.8 - 7.5 10*3/uL [facility] Neutrophils/100 WBC (Bld) 71.9 % 38.0 - 82.0 % [facility] Nucleated RBC/100 WBC (Bld) [Ratio] 0 % [facility] [employer] Platelet mean volume (Bld) [Entitic vol] 9.2 fL 9.0 - 12.7 fL [facility] Platelets (Bld) [#/Vol] 235 10*3/uL 140 - 440 10*3/uL [facility] RBC (Bld) [#/Vol] 3.96 10*6/uL 3.80 - 5.2 0 10*6/uL [facility] WBC (Bld) [#/Vol] 7.3 10*3/uL 3.6 - 10.7 10*3/uL [facility] CBC W Auto Differential pane l (Bld)Ordered By: Aden Baires on 08-05-2024 Basophils (Bld) [#/Vol] 0 10*3/uL 0.0 - 0.2 10*3/uL [facility] Basophils/100 WBC (Bld) 0.3 % 0.0 - 2.0 % [facility] Eosinophils (Bld) [#/Vol] 0.1 10*3/uL 0.0 - 0.5 10*3/uL [facility] Eosinophils/100 WBC (Bld) 1.5 % 0.0 - 6.0 % [facility] Erythrocyte distribution width (RBC) [Ratio] 19.2 % High 11.5 - 15.0 % [facility] Hematocrit (Bld) [Volume fraction] 31.9 % Low 35.0 - 47.0 % [facility] Hemoglobin (Bld) [Mass/Vol] 9.9 g/dL Low 11.7 - 16.0 g/dL [facility] Immature granulocytes (Bld) [#/Vol] 0 10*3/uL NINF - 0.1 10*3/uL [facility] Immature granulocytes/100 WBC (Bld) 0.5 % 0.0 - 2.0 % [facility] Interpretation and review of laboratory results Abnormal [facility] Lymphocytes (Bld) [#/Vol] 1.1 10*3/uL 1.0 - 4.3 10*3/uL [facility] Lymphocytes/100 WBC (Bld) 16.6 % 15.0 - 45.0 % [facility] MCH (RBC) [Entitic mass] 26.2 pg 26.0 - 34.0 pg [facility] MCHC (RBC) [Mass/Vol] 31 % 30.5 - 36.0 % [facility] MCV (RBC) [Entitic vol] 84.4 fL 77.0 - 99.0 fL [facility] Monocytes (Bld) [#/Vol] 0.6 10*3/uL 0.0 - 0.9 10*3/uL [facility] Monocytes/100 WBC (Bld) 9.1 % 5.0 - 13.0 % [facility] Neutrophils (Bld) [#/Vol] 4.7 10*3/uL 1.8 - 7.5 10*3/uL [facility] Neutrophils/100 WBC (Bld) 72 % 38.0 - 82.0 % [facility] Nucleated RBC/100 WBC (Bld) [Ratio] 0 % [facility] Platelet mean volume (Bld) [Entitic vol] 10 fL 9.0 - 12.7 fL [facility] Platelets (Bld) [#/Vol] 242 10*3/uL 140 - 440 10*3/uL [facility] RBC (Bld) [#/Vol] 3.78 10*6/uL Low 3.80 - 5.2 0 10*6/uL [facility] WBC (Bld) [#/Vol] 6.5 10*3/uL 3.6 - 10.7 10*3/uL [facility] CBC WITH AUTO DIFFERENTIALon 08-05-2024 Basophils (Bld) [#/Vol] 0.0 10*3/uL Normal 0.0-0.2 [facility] Comment on above: Performed By: #### L [id number] ####C[facility] [place] Adjuster: VELMA VALADEZ ([phone])[facility])[address] [place] [address] Basophils/100 WBC (Bld) 0.3 % Normal 0.0-2.0 [facility] Comment on above: Performed By: #### L [id number] ####[place] [place] Adjuster: VELMA VALADEZ ([phone])[facility])[address] [place] [address] [place] Eosinophils (Bld) [#/Vol] 0.1 10*3/uL Normal 0.0-0.5 [facility] Comment on above: Performed By: #### L [id number] ####[place] [place] Adjuster: VELMA [id number])[facility])[address] [place] [address] [place] Eosinophils/100 WBC (Bld) 1.6 % Normal 0.0-6.0 [facility] Comment on above: Performed By: #### L [id number] ####Cannon Pinion Adjuster: VELMA [id number])[facility])[address] [place] [address] Erythrocyte distribution width (RBC) [Ratio] 18.9 % High 11.5-15.0 [facility] Comment on above: Performed By: #### L [id number] ####Cannon Pinion Adjuster: VELMA VALADEZ ([id number])[facility])[address] [place] [address] Hematocrit (Bld) [Volume fraction] 33.3 % Low 35.0-47.0 [facility] Comment on above: Performed By: #### L [id number] ####Cannon Pinion Adjuster: VELMA VALADEZ ([id number])[facility])[address] [place] [address] Hemoglobin (Bld) [Mass/Vol] 10.3 g/dL Low 11.7-16.0 [facility] Comment on above: Performed By: #### L [id number] ####Cannon Pinion Adjuster: VELMA VALADEZ ([id number])[facility])[address] [place] [address] IMMATURE GRANS % 0.7 % Normal 0.0-2.0 [facility] Comment on above: Performed By: #### L [id number] ####Cannon Pinion Adjuster: VELMA VALADEZ ([id number])[facility])[address] [place] [address] IMMATURE GRANS ABSOLUTE 0.1 10*3/uL High <0.1 [facility] Comment on above: Performed By: #### L [id number] ####Cannon Pinion Adjuster: VELMA VALADEZ ([id number])[facility])[address] [place] [address] Lymphocytes (Bld) [#/Vol] 1.1 10*3/uL Normal 1.0-4.3 [facility] Comment on above: Performed By: #### L [id number] ####Cannon Pinion Adjuster: VELMA VALADEZ ([id number])[facility])[address] [place] [address] [place] Lymphocytes/100 WBC (Bld) 15.6 % Normal 15.0-45.0 [facility] Comment on above: Performed By: #### L [id number] ####Cannon Pinion Adjuster: VELMA VALADEZ ([id number])[facility])[address] [place] [address] MCH (RBC) [Entitic mass] 26.0 pg Normal 26.0-34.0 [facility] Comment on above: Performed By: #### L [id number] ####Cannon Pinion Adjuster: VELMA VALADEZ ([id number])[facility])[address] [place] [address] MCHC 30.9 % Normal 30.5-36.0 [facility] Comment on above: Performed By: #### L [id number] ####Cannon Pinion Adjuster: VELMA VALADEZ ([id number])[facility])[address] [place] [address] MCV (RBC) [Entitic vol] 84.1 fL Normal 77.0-99.0 [facility] Comment on above: Performed By: #### L [id number] ####Cannon Pinion Adjuster: VELMA VALADEZ ([id number])[facility])[address] [place] [address] Monocytes (Bld) [#/Vol] 0.7 10*3/uL Normal 0.0-0.9 [facility] Comment on above: Performed By: #### L [id number] ####Cannon Pinion Adjuster: VELMA VALADEZ ([id number])[facility])[address] [place] [address] Monocytes/100 WBC (Bld) 9.9 % Normal 5.0-13.0 [facility] Comment on above: Performed By: #### L [id number] ####Cannon Pinion Adjuster: VELMA VALADEZ ([id number])[facility])[address] [place] [address] NEUTROPHILS ABSOLUTE 5.3 10*3/uL Normal 1.8-7.5 [facility] Comment on above: Performed By: #### L [id number] ####Cannon Pinion Adjuster: VELMA VALADEZ ([id number])[facility] ([facility])[address] [place] [address] Neutrophils/100 WBC (Bld) 71.9 % Normal 38.0-82.0 [facility] Comment on above: Performed By: #### L [id number] ####Cannon Pinion Adjuster: VELMA VALADEZ ([id number])[facility] ([facility])[address] [place] [address] NRBC 0.0 /100 WBCs Normal 0.0-2.0 [facility] Comment on above: Performed By: #### L [id number] ####Cannon Pinion Adjuster: VELMA VALADEZ ([id number])[facility])[address] [place] [address] Platelet mean volume (Bld) [Entitic vol] 9.2 fL Normal 9.0-12.7 [facility] Comment on above: Performed By: #### L [id number] ####Cannon Pinion Adjuster: VELMA VALADEZ ([id number])[facility] ([facility])[address] [place] [address] Platelets (Bld) [#/Vol] 235 10*3/uL Normal 140-440 [facility] Comment on above: Performed By: #### L [id number] ####Cannon Pinion Adjuster: VELMA VALADEZ ([id number])[facility])[address] [place] [address] RBC (Bld) [#/Vol] 3.96 10*6/uL Normal 3.80-5.20 [facility] Comment on above: Performed By: #### L [id number] ####Cannon Pinion Adjuster: VELMA VALADEZ ([id number])[facility])[address] [place] [address] WBC (Bld) [#/Vol] 7.3 10*3/uL Normal 3.6-10.7 [facility] Comment on above: Performed By: #### L [id number] ####Cannon Pinion Adjuster: VELMA VALADEZ ([id number])[facility] ([facility])[address] [place] [address] Basophils (Bld) [#/Vol] 0.0 10*3/uL Normal 0.0-0.2 [facility] Comment on above: Performed By: #### L [id number] ####Cannon Pinion Adjuster: VELMA VALADEZ ([id number])[facility])[address] [place] [address] [place] Basophils/100 WBC (Bld) 0.3 % Normal 0.0-2.0 [facility] Comment on above: Performed By: #### L [id number] ####Cannon Pinion Adjuster: VELMA VALADEZ ([id number])[facility])[address] [place] [address] Eosinophils (Bld) [#/Vol] 0.1 10*3/uL Normal 0.0-0.5 [facility] Comment on above: Performed By: #### L [id number] ####Cannon Pinion Adjuster: VELMA VALADEZ ([id number])[facility] ([facility])[address] [place] [address] Eosinophils/100 WBC (Bld) 1.5 % Normal 0.0-6.0 [facility] Comment on above: Performed By: #### L [id number] ####Cannon Pinion Adjuster: VELMA VALADEZ ([id number])[facility])[address] [place] [address] Erythrocyte distribution width (RBC) [Ratio] 19.2 % High 11.5-15.0 [facility] Comment on above: Performed By: #### L [id number] ####Cannon Pinion Adjuster: VELMA VALADEZ ([id number])[facility])[address] [place] [address] Hematocrit (Bld) [Volume fraction] 31.9 % Low 35.0-47.0 [facility] Comment on above: Performed By: #### L [id number] ####Cannon Pinion Adjuster: VELMA VALADEZ ([id number])[facility] Hemoglobin (Bld) [Mass/Vol] 9.9 g/dL Low 11.7-16.0 [facility] Comment on above: Performed By: #### L [id number] ####Cannon Pinion Adjuster: VELMA VALADEZ ([id number])[facility])[address] [place] [address] IMMATURE GRANS % 0.5 % Normal 0.0-2.0 [facility] Comment on above: Performed By: #### L [id number] ####Cannon Pinion Adjuster: VELMA VALADEZ ([id number])[address] IMMATURE GRANS ABSOLUTE 0.0 10*3/uL Normal <0.1 [facility] Comment on above: Performed By: #### L [id number] ####Cannon Pinion Adjuster: VELMA VALADEZ ([id number])[facility])[address] [place] [address] Lymphocytes (Bld) [#/Vol] 1.1 10*3/uL Normal 1.0-4.3 [facility] Comment on above: Performed By: #### L [id number] ####Cannon Pinion Adjuster: VELMA VALADEZ ([id number])[address] Lymphocytes/100 WBC (Bld) 16.6 % Normal 15.0-45.0 [facility] Comment on above: Performed By: #### L [id number] ####Cannon Pinion Adjuster: VELMA VALADEZ ([id number])[facility])[address] [place] [address] MCH (RBC) [Entitic mass] 26.2 pg Normal 26.0-34.0 [facility] Comment on above: Performed By: #### L [id number] ####Cannon Pinion Adjuster: VELMA VALADEZ ([id number])[facility])[address] [place] [address] MCHC 31.0 % Normal 30.5-36.0 [facility] Comment on above: Performed By: #### L [id number] ####Cannon Pinion Adjuster: VELMA VALADEZ ([id number])[facility] ([facility])[address] [place] [address] MCV (RBC) [Entitic vol] 84.4 fL Normal 77.0-99.0 [facility] Comment on above: Performed By: #### L [id number] ####Cannon Pinion Adjuster: VELMA VALADEZ ([id number])[facility] ([facility])[address] [place] [address] Monocytes (Bld) [#/Vol] 0.6 10*3/uL Normal 0.0-0.9 [facility] Comment on above: Performed By: #### L [id number] ####Cannon Pinion Adjuster: VELMA VALADEZ ([id number])[facility])[address] [place] [address] Monocytes/100 WBC (Bld) 9.1 % Normal 5.0-13.0 [facility] Comment on above: Performed By: #### L [id number] ####Cannon Pinion Adjuster: VELMA VALADEZ ([id number])[facility] ([facility])[address] [place] [address] NEUTROPHILS ABSOLUTE 4.7 10*3/uL Normal 1.8-7.5 [facility] Comment on above: Performed By: #### L [id number] ####Cannon Pinion Adjuster: VELMA VALADEZ ([id number])[facility])[address] [place] [address] Neutrophils/100 WBC (Bld) 72.0 % Normal 38.0-82.0 [facility] Comment on above: Performed By: #### L [id number] ####Cannon Pinion Adjuster: VELMA VALADEZ ([id number])[facility])[address] [place] [address] NRBC 0.0 /100 WBCs Normal 0.0-2.0 [facility] Comment on above: Performed By: #### L [id number] ####Cannon Pinion Adjuster: VELMA [id number])[facility] ([facility])[address] [place] [address] Platelet mean volume (Bld) [Entitic vol] 10.0 fL Normal 9.0-12.7 [facility] Comment on above: Performed By: #### L [id number] ####Cannon Pinion Adjuster: VELMA VALADEZ ([id number])[facility] ([facility])[address] [place] [address] Platelets (Bld) [#/Vol] 242 10*3/uL Normal 140-440 [facility] Comment on above: Performed By: #### L [id number] ####Cannon Pinion Adjuster: VELMA VALADEZ ([id number])[facility] ([facility])[address] [place] [address] RBC (Bld) [#/Vol] 3.78 10*6/uL Low 3.80-5.20 [facility] Comment on above: Performed By: #### L [id number] ####Cannon Pinion Adjuster: VELMA VALADEZ ([id number])[facility] ([facility])[address] [place] [address] WBC (Bld) [#/Vol] 6.5 10*3/uL Normal 3.6-10.7 [facility] Comment on above: Performed By: #### L [id number] ####Cannon Pinion Adjuster: VELMA VALADEZ ([id number])[facility] ([facility])[address] [place] [address] COMPREHENSIVE METABOLIC PANE Gilberto 08-05-2024 Albumin [Mass/Vol] 2.4 g/dL Low 3.4-4.8 [facility] Comment on above: Performed By: #### L [id number] ####Cannon Pinion Adjuster: VELMA VALADEZ ([id number])[facility])[address] [place] [address] ALP [Catalytic activity/Vol] 72 U/L Normal 40-150 [facility] Comment on above: Performed By: #### L [id number] ####Cannon Pinion Adjuster: VELMA VALADEZ ([id number])[facility] ([facility])[address] [place] [address] ALT [Catalytic activity/Vol] 24 U/L Normal <30 [facility] Comment on above: Performed By: #### L [id number] ####Cannon Pinion Adjuster: VELMA VALADEZ ([id number])[facility] ([facility])[address] [place] [address] Anion gap [Moles/Vol] 7 mmol/L Normal 3-13 [facility] Comment on above: Performed By: #### L [id number] ####Cannon Pinion Adjuster: VELMA VALADEZ ([id number])[facility] ([facility])[address] [place] [address] AST [Catalytic activity/Vol] 21 U/L Normal <34 [facility] Comment on above: Performed By: #### L [id number] ####Cannon Pinion Adjuster: VELMA VALADEZ ([id number])[facility] ([facility])[address] [place] [address] Bilirubin [Mass/Vol] 0.9 mg/dL Normal <1.2 [facility] Comment on above: Performed By: #### L [id number] ####Cannon Pinion Adjuster: VELMA VALADEZ ([id number])[facility] ([facility])[address] [place] [address] Calcium [Mass/Vol] 8.4 mg/dL Low 8.8-10.0 [facility] Comment on above: Performed By: #### L [id number] ####Cannon Pinion Adjuster: VELMA VALADEZ ([id number])[facility] ([facility])[address] [place] [address] Chloride [Moles/Vol] 115 mmol/L High 98-107 [facility] Comment on above: Performed By: #### L [id number] ####Cannon Pinion Adjuster: VELMA VALADEZ ([id number])[facility] ([facility])[address] [place] [address] CO2 [Moles/Vol] 17 mmol/L Low 23-31 [facility] Comment on above: Performed By: #### L [id number] ####Cannon Pinion Adjuster: VELMA VALADEZ ([id number])[facility] ([facility])[address] [place] [address] Creatinine [Mass/Vol] 0.91 mg/dL Normal 0.57-1.11 [facility] Comment on above: Performed By: #### L [id number] ####Cannon Pinion Adjuster: VELMA VALADEZ ([id number])[facility] ([facility])[address] [place] [address] [place] GLOMERULAR FILTRATION RATE ML/MIN/1.73 SQ M.PREDICTED 62.3 mL/min/1.73m*2 Normal >60.0 [facility] Comment on above: Result Comment: Calc ulation based on the Chronic Kidney Disease Epidemiology Collaboration (CKD-EPI) equation refit without adjustment for race Performed By: #### L [id number] ####Cannon Pinion Adjuster: VELMA VALADEZ ([id number])[facility] ([facility])[address] [place] [address] Glucose [Mass/Vol] 92 mg/dL Normal 82-115 [facility] Comment on above: Performed By: #### L [id number] ####Cannon Pinion Adjuster: VELMA VALADEZ ([id number])[facility])[address] [place] [address] Potassium [Moles/Vol] 3.8 mmol/L Normal 3.5-5.1 [facility] Comment on above: Result Comment: [facility] potassium values may be up to 0.5 mmol/L lower than serum values. Performed By: #### L [id number] ####Cannon Pinion Adjuster: VELMA VALADEZ ([id number])[facility] ([facility])[address] [place] [address] Protein [Mass/Vol] 5.5 g/dL Low 6.4-8.3 [facility] Comment on above: Performed By: #### L [id number] ####Cannon Pinion Adjuster: VELMA VALADEZ ([id number])[facility] [place] [address] Sodium [Moles/Vol] 139 mmol/L Normal 136-145 [facility] Comment on above: Performed By: #### L [id number] ####Cannon Pinion Adjuster: VELMA VALADEZ ([id number])[facility] ([facility])[address] [place] [address] Urea nitrogen [Mass/Vol] 9 mg/dL Normal 9-23 [facility] Comment on above: Performed By: #### L [id number] ####Cannon Pinion Adjuster: VELMA VALADEZ ([id number])[facility] ([facility])[address] [place] [address] Albumin [Mass/Vol] 2.3 g/dL Low 3.4-4.8 [facility] Comment on above: Performed By: #### L [id number] ####Cannon Pinion Adjuster: VELMA VALADEZ ([id number])[facility] ([facility])[address] [place] [address] ALP [Catalytic activity/Vol] 74 U/L Normal 40-150 [facility] Comment on above: Performed By: #### L [id number] ####Cannon Pinion Adjuster: VELMA VALADEZ ([id number])[facility] ([facility])[address] [place] [address] ALT [Catalytic activity/Vol] 27 U/L Normal <30 [facility] Comment on above: Performed By: #### L [id number] ####Cannon Pinion Adjuster: VELMA VALADEZ ([id number])[facility] ([facility])[address] [place] [address] Anion gap [Moles/Vol] 5 mmol/L Normal 3-13 [facility] Comment on above: Performed By: #### L [id number] ####Cannon Pinion Adjuster: VELMA VALADEZ ([id number])[facility] ([facility])[address] [place] [address] [place] AST [Catalytic activity/Vol] 24 U/L Normal <34 [facility] Comment on above: Performed By: #### L [id number] ####Cannon Pinion Adjuster: VELMA VALADEZ ([id number])[facility] ([facility])[address] [place] [address] Bilirubin [Mass/Vol] 0.6 mg/dL Normal <1.2 [facility] Comment on above: Performed By: #### L [id number] ####Cannon Pinion Adjuster: VELMA VALADEZ ([id number])[facility] ([facility])[address] [place] [address] Calcium [Mass/Vol] 8.1 mg/dL Low 8.8-10.0 [facility] Comment on above: Performed By: #### L [id number] ####Cannon Pinion Adjuster: VELMA VALADEZ ([id number])[facility] [place] [address] Chloride [Moles/Vol] 108 mmol/L High 98-107 [facility] Comment on above: Performed By: #### L [id number] ####Cannon Pinion Adjuster: VELMA VALADEZ ([id number])[facility] ([facility])[address] [place] [address] CO2 [Moles/Vol] 21 mmol/L Low 23-31 [facility] Comment on above: Performed By: #### L AB17 ####Cannon Pinion Adjuster: VELMA VALADEZ ([id number])[facility] ([facility])[address] [place] [address] Creatinine [Mass/Vol] 0.89 mg/dL Normal 0.57-1.11 [facility] Comment on above: Performed By: #### L [id number] ####Cannon Pinion Adjuster: VELMA VALADEZ ([phone])[facility] ([facility])[address] [place] [address] [place] GLOMERULAR FILTRATION RATE ML/MIN/1.73 SQ M.PREDICTED 64.0 mL/min/1.73m*2 Normal >60.0 [facility] Comment on above: Result Comment: Calc ulation based on the Chronic Kidney Disease Epidemiology Collaboration (CKD-EPI) equation refit without adjustment for race Performed By: #### L [id number] ####Cannon Pinion Adjuster: VELMA VALADEZ ([id number])[facility] [place] [address] [place] Glucose [Mass/Vol] 85 mg/dL Normal 82-115 [facility] Comment on above: Performed By: #### L AB17 ####Cannon Pinion Adjuster: VELMA VALADEZ ([id number])[facility] ([facility])[address] [place] [address] Potassium [Moles/Vol] 3.8 mmol/L Normal 3.5-5.1 [facility] Comment on above: Result Comment: [facility] potassium values may be up to 0.5 mmol/L lower than serum values. Performed By: #### L AB17 ####Cannon Pinion Adjuster: VELMA VALADEZ ([id number])[facility] ([facility])[address] [place] [address] Protein [Mass/Vol] 5.2 g/dL Low 6.4-8.3 [facility] Comment on above: Performed By: #### L AB17 ####Cannon Pinion Adjuster: VELMA VALADEZ ([id number])[facility])[address] [place] [address] Sodium [Moles/Vol] 134 mmol/L Low 136-145 [facility] Comment on above: Performed By: #### L AB17 ####Cannon Pinion Adjuster: VELMA VALADEZ ([id number])[facility] ([facility])[address] [place] [address] Urea nitrogen [Mass/Vol] 13 mg/dL Normal 9-23 [facility] Comment on above: Performed By: #### L AB17 ####Cannon Pinion Adjuster: VELMA VALADEZ ([id number])[facility])[address] [place] [address] Comprehensive metabolic 1998 panelon 08-05-2024 Albumin [Mass/Vol] 2.3 g/dL Low 3.4 - 4.8 g/dL [facility] ALP [Catalytic activity/Vol] 74 U/L 40 - 150 U/L [facility] ALT [Catalytic activity/Vol] 27 U/L NINF - 30 U/L [facility] Anion gap [Moles/Vol] 5 mmol/L 3 - 13 mmol/L [facility] AST [Catalytic activity/Vol] 24 U/L NINF - 34 U/L [facility] Bilirubin [Mass/Vol] 0.6 mg/dL NINF - 1.2 mg/dL [facility] Calcium [Mass/Vol] 8.1 mg/dL Low 8.8 - 10. 0 mg/dL [facility] Chloride [Moles/Vol] 108 mmol/L High 98 - 10 7 mmol/L [facility] CO2 [Moles/Vol] 21 mmol/L Low 23 - 31 mmol/L [facility] Creatinine [Mass/Vol] 0.89 mg/dL 0.57 - 1.11 mg/dL [facility] GFR/1.73 sq M.predicted (S/P/Bld) [Vol rate/Area] 64 mL/min - PINF [facility] Comment on above: Calculation based on the Chronic Kidney Disease Epidemiology Collaboration (CKD-EPI) equation refit without adjustment for race Glucose [Mass/Vol] 85 mg/dL 82 - 115 mg/dL [facility] Interpretation and review of laboratory results Abnormal [facility] Potassium [Moles/Vol] 3.8 mmol/L 3.5 - 5.1 mmol/L [facility] Comment on above: Plasma potassium chris ues may be up to 0.5 mmol/L lower than serum values. Protein [Mass/Vol] 5.2 g/dL Low 6.4 - 8.3 g/dL [facility] Sodium [Moles/Vol] 134 mmol/L Low 136 - 145 mmol/L [facility] Urea nitrogen [Mass/Vol] 13 mg/dL 9 - 23 mg/dL [facility] Progress Noteon 08-05-2024 Progress Note Normal [facility] Progress Note Normal [facility] 30on 08-04-2024 30 Normal [facility] 30 Normal [facility] CBC W Auto Differential pane l (Bld)Ordered By: Devika Eisenberg on 08-04-2024 Basophils (Bld) [#/Vol] 0 10*3/uL 0.0 - 0.2 10*3/uL [facility] Basophils/100 WBC (Bld) 0.2 % 0.0 - 2.0 % [facility] Eosinophils (Bld) [#/Vol] 0.1 10*3/uL 0.0 - 0.5 10*3/uL [facility] Eosinophils/100 WBC (Bld) 1.4 % 0.0 - 6.0 % [facility] Erythrocyte distribution width (RBC) [Ratio] 19.3 % High 11.5 - 15.0 % [facility] Hematocrit (Bld) [Volume fraction] 33 % Low 35.0 - 47.0 % [facility] Hemoglobin (Bld) [Mass/Vol] 10 g/dL Low 11.7 - 16.0 g/dL [facility] Immature granulocytes (Bld) [#/Vol] 0 10*3/uL NINF - 0.1 10*3/uL [facility] Immature granulocytes/100 WBC (Bld) 0.5 % 0.0 - 2.0 % [facility] Interpretation and review of laboratory results Abnormal [facility] Lymphocytes (Bld) [#/Vol] 1 10*3/uL 1.0 - 4.3 10*3/uL [facility] Lymphocytes/100 WBC (Bld) 17.7 % 15.0 - 45.0 % [facility] MCH (RBC) [Entitic mass] 25.8 pg Low 26.0 - 34.0 pg [facility] MCHC (RBC) [Mass/Vol] 30.3 % Low 30.5 - 36.0 % [facility] MCV (RBC) [Entitic vol] 85.1 fL 77.0 - 99.0 fL [facility] Monocytes (Bld) [#/Vol] 0.5 10*3/uL 0.0 - 0.9 10*3/uL [facility] Monocytes/100 WBC (Bld) 9.5 % 5.0 - 13.0 % [facility] Neutrophils (Bld) [#/Vol] 3.9 10*3/uL 1.8 - 7.5 10*3/uL [facility] Neutrophils/100 WBC (Bld) 70.7 % 38.0 - 82.0 % [facility] Nucleated RBC/100 WBC (Bld) [Ratio] 0 % [facility] [employer] Platelet mean volume (Bld) [Entitic vol] 9.8 fL 9.0 - 12.7 fL [facility] Platelets (Bld) [#/Vol] 280 10*3/uL 140 - 440 10*3/uL [facility] RBC (Bld) [#/Vol] 3.88 10*6/uL 3.80 - 5.2 0 10*6/uL [facility] WBC (Bld) [#/Vol] 5.6 10*3/uL 3.6 - 10.7 10*3/uL [facility] CBC WITH AUTO DIFFERENTIALon 08-04-2024 Basophils (Bld) [#/Vol] 0.0 10*3/uL Normal 0.0-0.2 [facility] Comment on above: Performed By: #### L [id number] ####[employer] Adjuster: VELMA VALADEZ ([id number])[facility])[address] [place] [address] Basophils/100 WBC (Bld) 0.2 % Normal 0.0-2.0 [facility] Comment on above: Performed By: #### L [id number] ####[employer] Adjuster: VELMA VALADEZ ([id number])[facility])[address] [place] [address] Eosinophils (Bld) [#/Vol] 0.1 10*3/uL Normal 0.0-0.5 [facility] Comment on above: Performed By: #### L [id number] ####Cannon Pinion Adjuster: VELMA VALADEZ ([id number])[facility] ([facility])[address] [place] [address] Eosinophils/100 WBC (Bld) 1.4 % Normal 0.0-6.0 [facility] Comment on above: Performed By: #### L [id number] ####Cannon Pinion Adjuster: VELMA VALADEZ ([id number])[facility])[address] [place] [address] Erythrocyte distribution width (RBC) [Ratio] 19.3 % High 11.5-15.0 [facility] Comment on above: Performed By: #### L [id number] ####Cannon Pinion Adjuster: VELMA VALADEZ ([id number])[facility])[address] [place] [address] Hematocrit (Bld) [Volume fraction] 33.0 % Low 35.0-47.0 [facility] Comment on above: Performed By: #### L [id number] ####Cannon Pinion Adjuster: VELMA [id number])[facility] [address] Hemoglobin (Bld) [Mass/Vol] 10.0 g/dL Low 11.7-16.0 [facility] Comment on above: Performed By: #### L [id number] ####Cannon Pinion Adjuster: VELMA VALADEZ ([id number])[facility])[address] [place] [address] IMMATURE GRANS % 0.5 % Normal 0.0-2.0 [facility] Comment on above: Performed By: #### L [id number] ####Cannon Pinion Adjuster: VELMA VALADEZ ([id number])[address] IMMATURE GRANS ABSOLUTE 0.0 10*3/uL Normal <0.1 [facility] Comment on above: Performed By: #### L [id number] ####Cannon Pinion Adjuster: VELMA VALADEZ ([id number])[facility])[address] [place] [address] Lymphocytes (Bld) [#/Vol] 1.0 10*3/uL Normal 1.0-4.3 [facility] Comment on above: Performed By: #### L [id number] ####Cannon Pinion Adjuster: VELMA VALADEZ ([id number])[address] Lymphocytes/100 WBC (Bld) 17.7 % Normal 15.0-45.0 [facility] Comment on above: Performed By: #### L [id number] ####Cannon Pinion Adjuster: VELMA VALADEZ ([id number])[facility])[address] [place] [address] MCH (RBC) [Entitic mass] 25.8 pg Low 26.0-34.0 [facility] Comment on above: Performed By: #### L [id number] ####Cannon Pinion Adjuster: VELMA VALADEZ ([id number])[facility])[address] [place] [address] MCHC 30.3 % Low 30.5-36.0 [facility] Comment on above: Performed By: #### L [id number] ####Cannon Pinion Adjuster: VELMA VALADEZ ([id number])[facility] ([facility])[address] [place] [address] MCV (RBC) [Entitic vol] 85.1 fL Normal 77.0-99.0 [facility] Comment on above: Performed By: #### L [id number] ####Cannon Pinion Adjuster: VELMA VALADEZ ([id number])[facility] ([facility])[address] [place] [address] Monocytes (Bld) [#/Vol] 0.5 10*3/uL Normal 0.0-0.9 [facility] Comment on above: Performed By: #### L [id number] ####Cannon Pinion Adjuster: VELMA VALADEZ ([id number])[facility])[address] [place] [address] Monocytes/100 WBC (Bld) 9.5 % Normal 5.0-13.0 [facility] Comment on above: Performed By: #### L [id number] ####Cannon Pinion Adjuster: VELMA VALADEZ ([id number])[facility] ([facility])[address] [place] [address] NEUTROPHILS ABSOLUTE 3.9 10*3/uL Normal 1.8-7.5 [facility] Comment on above: Performed By: #### L [id number] ####Cannon Pinion Adjuster: VELMA VALADEZ ([id number])[facility])[address] [place] [address] Neutrophils/100 WBC (Bld) 70.7 % Normal 38.0-82.0 [facility] Comment on above: Performed By: #### L [id number] ####Cannon Pinion Adjuster: VELMA VALADEZ ([id number])[facility])[address] [place] [address] NRBC 0.0 /100 WBCs Normal 0.0-2.0 [facility] Comment on above: Performed By: #### L [id number] ####Cannon Pinion Adjuster: VELMA VALADEZ ([id number])[facility] ([facility])[address] [place] [address] Platelet mean volume (Bld) [Entitic vol] 9.8 fL Normal 9.0-12.7 [facility] Comment on above: Performed By: #### L [id number] ####Cannon Pinion Adjuster: VELMA VALADEZ ([id number])[facility] ([facility])[address] [place] [address] Platelets (Bld) [#/Vol] 280 10*3/uL Normal 140-440 [facility] Comment on above: Performed By: #### L [id number] ####Cannon Pinion Adjuster: VELMA VALADEZ ([id number])[facility] ([facility])[address] [place] [address] RBC (Bld) [#/Vol] 3.88 10*6/uL Normal 3.80-5.20 [facility] Comment on above: Performed By: #### L [id number] ####Cannon Pinion Adjuster: VELMA VALADEZ ([id number])[facility] ([facility])[address] [place] [address] WBC (Bld) [#/Vol] 5.6 10*3/uL Normal 3.6-10.7 [facility] Comment on above: Performed By: #### L [id number] ####Cannon Pinion Adjuster: VELMA VALADEZ ([id number])[facility] ([facility])[address] [place] [address] COMPREHENSIVE METABOLIC PANE Gilberto 08-04-2024 Albumin [Mass/Vol] 2.3 g/dL Low 3.4-4.8 [facility] Comment on above: Performed By: #### L [id number] ####Cannon Pinion Adjuster: VELMA VALADEZ ([id number])[facility])[address] [place] [address] ALP [Catalytic activity/Vol] 68 U/L Normal 40-150 [facility] Comment on above: Performed By: #### L AB17 ####Cannon Pinion Adjuster: VELMA VALADEZ ([id number])[facility])[address] [place] [address] ALT [Catalytic activity/Vol] 26 U/L Normal <30 [facility] Comment on above: Performed By: #### L AB17 ####Cannon Pinion Adjuster: VELMA VALADEZ ([id number])[facility] ([facility])[address] [place] [address] Anion gap [Moles/Vol] 6 mmol/L Normal 3-13 [facility] Comment on above: Performed By: #### L AB17 ####Cannon Pinion Adjuster: VELMA VALADEZ ([id number])[facility] ([facility])[address] [place] [address] AST [Catalytic activity/Vol] 25 U/L Normal <34 [facility] Comment on above: Performed By: #### L AB17 ####Cannon Pinion Adjuster: VELMA VALADEZ ([id number])[facility] ([facility])[address] [place] [address] Bilirubin [Mass/Vol] 0.5 mg/dL Normal <1.2 [facility] Comment on above: Performed By: #### L AB17 ####Cannon Pinion Adjuster: VELMA VALADEZ ([id number])[facility] ([facility])[address] [place] [address] Calcium [Mass/Vol] 8.2 mg/dL Low 8.8-10.0 [facility] Comment on above: Performed By: #### L AB17 ####Cannon Pinion Adjuster: VELMA VALADEZ ([id number])[facility] ([facility])[address] [place] [address] Chloride [Moles/Vol] 112 mmol/L High 98-107 [facility] Comment on above: Performed By: #### L AB17 ####Cannon Pinion Adjuster: VELMA VALADEZ ([id number])[facility] ([facility])[address] [place] [address] CO2 [Moles/Vol] 21 mmol/L Low 23-31 [facility] Comment on above: Performed By: #### L AB17 ####Cannon Pinion Adjuster: VELMA VALADEZ ([id number])[facility] ([facility])[address] [place] [address] Creatinine [Mass/Vol] 1.13 mg/dL High 0.57-1.11 [facility] Comment on above: Performed By: #### L AB17 ####Cannon Pinion Adjuster: VELMA VALADEZ ([id number])[facility] ([facility])[address] [place] [address] [place] GLOMERULAR FILTRATION RATE ML/MIN/1.73 SQ M.PREDICTED 48.1 mL/min/1.73m*2 Low >60.0 [facility] Comment on above: Result Comment: Calc ulation based on the Chronic Kidney Disease Epidemiology Collaboration (CKD-EPI) equation refit without adjustment for race Performed By: #### L AB17 ####Cannon Pinion Adjuster: VELMA VALADEZ ([id number])[facility] ([facility])[address] [place] [address] [place] Glucose [Mass/Vol] 153 mg/dL High 82-115 [facility] Comment on above: Performed By: #### L AB17 ####Cannon Pinion Adjuster: VELMA VALADEZ ([id number])[facility] ([facility])[address] [place] [address] Potassium [Moles/Vol] 3.9 mmol/L Normal 3.5-5.1 [facility] Comment on above: Result Comment: [facility] potassium values may be up to 0.5 mmol/L lower than serum values. Performed By: #### L AB17 ####Cannon Pinion Adjuster: VELMA VALADEZ ([id number])[facility] ([facility])[address] [place] [address] Protein [Mass/Vol] 5.2 g/dL Low 6.4-8.3 [facility] Comment on above: Performed By: #### L AB17 ####Cannon Pinion Adjuster: VELMA VALADEZ ([id number])[facility] [place] [address] [place] Sodium [Moles/Vol] 139 mmol/L Normal 136-145 [facility] Comment on above: Performed By: #### L AB17 ####Cannon Pinion Adjuster: VELMA VALADEZ ([id number])[facility] [place] [address] Urea nitrogen [Mass/Vol] 26 mg/dL High 9-23 [facility] Comment on above: Performed By: #### L AB17 ####Cannon Pinion Adjuster: VELMA VALADEZ ([id number])[facility] [place] [address] Comprehensive metabolic 1998 panelon 08-04-2024 Albumin [Mass/Vol] 2.3 g/dL Low 3.4 - 4.8 g/dL [facility] ALP [Catalytic activity/Vol] 68 U/L 40 - 150 U/L [facility] ALT [Catalytic activity/Vol] 26 U/L NINF - 30 U/L [facility] Anion gap [Moles/Vol] 6 mmol/L 3 - 13 mmol/L [facility] AST [Catalytic activity/Vol] 25 U/L NINF - 34 U/L [facility] Bilirubin [Mass/Vol] 0.5 mg/dL NINF - 1.2 mg/dL [facility] Calcium [Mass/Vol] 8.2 mg/dL Low 8.8 - 10. 0 mg/dL [facility] Chloride [Moles/Vol] 112 mmol/L High 98 - 10 7 mmol/L [facility] CO2 [Moles/Vol] 21 mmol/L Low 23 - 31 mmol/L [facility] Creatinine [Mass/Vol] 1.13 mg/dL High 0.57 - 1.11 mg/dL [facility] GFR/1.73 sq M.predicted (S/P/Bld) [Vol rate/Area] 48.1 mL/min Low - PINF [facility] Comment on above: Calculation based on the Chronic Kidney Disease Epidemiology Collaboration (CKD-EPI) equation refit without adjustment for race Glucose [Mass/Vol] 153 mg/dL High 82 - 115 mg/dL [facility] Interpretation and review of laboratory results Abnormal [facility] Potassium [Moles/Vol] 3.9 mmol/L 3.5 - 5.1 mmol/L [facility] Comment on above: Plasma potassium chris ues may be up to 0.5 mmol/L lower than serum values. Protein [Mass/Vol] 5.2 g/dL Low 6.4 - 8.3 g/dL [facility] Sodium [Moles/Vol] 139 mmol/L 136 - 145 mmol/L [facility] Urea nitrogen [Mass/Vol] 26 mg/dL High 9 - 23 mg/dL [facility] Nursing Noteon 08-04-2024 Nursing Note Bedside swallow completed. Pt passed and tolerated well tolerated well. Normal [facility] Progress Noteon 08-04-2024 Progress Note Normal [facility] 30on 08-03-2024 30 Normal [facility] 30 Normal [facility] 30 Normal [facility] [id number] 08-03-2024 [id number] Normal [facility] BASIC METABOLIC PANELon 07-18 Anion gap [Moles/Vol] 6 mmol/L Normal 3-13 [facility] Comment on above: Performed By: #### L AB15 ####Cannon Pinion Adjuster: VELMA VALADEZ ([id number])[facility])[address] [place] [address] Calcium [Mass/Vol] 8.5 mg/dL Low 8.8-10.0 [facility] Comment on above: Performed By: #### L AB15 ####Cannon Pinion Adjuster: VELMA VALADEZ ([id number])[facility] ([facility])[address] [place] [address] [place] Chloride [Moles/Vol] 105 mmol/L Normal 98-107 [facility] Comment on above: Performed By: #### L AB15 ####Cannon Pinion Adjuster: VELMA VALADEZ ([id number])[facility] ([facility])[address] [place] [address] [place] CO2 [Moles/Vol] 27 mmol/L Normal 23-31 [facility] Comment on above: Performed By: #### L AB15 ####Cannon Pinion Adjuster: VELMA VALADEZ ([id number])[facility])[address] [place] [address] [place] Creatinine [Mass/Vol] 1.18 mg/dL High 0.57-1.11 [facility] Comment on above: Performed By: #### L AB15 ####Cannon Pinion Adjuster: VELMA VALADEZ ([id number])[facility])[address] [place] [address] GLOMERULAR FILTRATION RATE ML/MIN/1.73 SQ M.PREDICTED 45.6 mL/min/1.73m*2 Low >60.0 [facility] Comment on above: Result Comment: Calc ulation based on the Chronic Kidney Disease Epidemiology Collaboration (CKD-EPI) equation refit without adjustment for race Performed By: #### L AB15 ####Cannon Pinion Adjuster: VELMA VALADEZ ([id number])[facility] ([facility])[address] [place] [address] Glucose [Mass/Vol] 100 mg/dL Normal 82-115 [facility] Comment on above: Performed By: #### L AB15 ####Cannon Pinion Adjuster: VELMA VALADEZ ([id number])[facility])[address] [place] [address] Potassium [Moles/Vol] 4.7 mmol/L Normal 3.5-5.1 [facility] Comment on above: Result Comment: [facility] potassium values may be up to 0.5 mmol/L lower than serum values. Performed By: #### L AB15 ####Cannon Pinion Adjuster: VELMA VALADEZ ([phone])[facility] ([facility])[address] [place] [address] [place] Sodium [Moles/Vol] 138 mmol/L Normal 136-145 [facility] Comment on above: Performed By: #### L AB15 ####Cannon Pinion Adjuster: VELMA VALADEZ ([id number])[facility])[address] [place] [address] [place] Urea nitrogen [Mass/Vol] 33 mg/dL High 9-23 [facility] Comment on above: Performed By: #### L AB15 ####Cannon Pinion Adjuster: VELMA VALADEZ ([phone])[facility])[address] [place] [address] Basic metabolic 1998 panelOr dered By: Juni Millard on 08-03-2024 Anion gap [Moles/Vol] 6 mmol/L 3 - 13 mmol/L [facility] Calcium [Mass/Vol] 8.5 mg/dL Low 8.8 - 10. 0 mg/dL [facility] Chloride [Moles/Vol] 105 mmol/L 98 - 10 7 mmol/L [facility] CO2 [Moles/Vol] 27 mmol/L 23 - 31 mmol/L [facility] Creatinine [Mass/Vol] 1.18 mg/dL High 0.57 - 1.11 mg/dL [facility] GFR/1.73 sq M.predicted (S/P/Bld) [Vol rate/Area] 45.6 mL/min Low - PINF [facility] Comment on above: Calculation based on the Chronic Kidney Disease Epidemiology Collaboration (CKD-EPI) equation refit without adjustment for race Glucose [Mass/Vol] 100 mg/dL 82 - 115 mg/dL [facility] Interpretation and review of laboratory results Abnormal [facility] Potassium [Moles/Vol] 4.7 mmol/L 3.5 - 5.1 mmol/L [facility] Comment on above: Plasma potassium chris ues may be up to 0.5 mmol/L lower than serum values. Sodium [Moles/Vol] 138 mmol/L 136 - 145 mmol/L [facility] Urea nitrogen [Mass/Vol] 33 mg/dL High 9 - 23 mg/dL [facility] CBC W Auto Differential pane l (Bld)Ordered By: Christin Mayes on 08-03-2024 Erythrocyte distribution width (RBC) [Ratio] 19.4 % High 11.5 - 15.0 % [facility] Hematocrit (Bld) [Volume fraction] 38.7 % 35.0 - 47.0 % [facility] Hemoglobin (Bld) [Mass/Vol] 12.1 g/dL 11.7 - 16.0 g/dL [facility] MCH (RBC) [Entitic mass] 26 pg 26.0 - 34.0 pg [facility] MCHC (RBC) [Mass/Vol] 31.3 % 30.5 - 36.0 % [facility] MCV (RBC) [Entitic vol] 83.2 fL 77.0 - 99.0 fL [facility] Nucleated RBC/100 WBC (Bld) [Ratio] 0 % [facility] Platelet mean volume (Bld) [Entitic vol] 9.8 fL 9.0 - 12.7 fL [facility] Comment on above: MPV is a calculated measurement using platelet volume ratio Platelets (Bld) [#/Vol] 303 10*3/uL 140 - 440 10*3/uL [facility] RBC (Bld) [#/Vol] 4.65 10*6/uL 3.80 - 5.2 0 10*6/uL [facility] WBC (Bld) [#/Vol] 9.1 10*3/uL 3.6 - 10.7 10*3/uL [facility] CBC WITH AUTO DIFFERENTIALon 08-03-2024 Erythrocyte distribution width (RBC) [Ratio] 19.4 % High 11.5-15.0 [facility] Comment on above: Performed By: #### L [id number], [id number] ####Cannon Pinion Adjuster: VELMA VALADEZ ([id number])[facility] ([facility])[address] [place] [address] Hematocrit (Bld) [Volume fraction] 38.7 % Normal 35.0-47.0 [facility] Comment on above: Performed By: #### Weston [id number], [id number] ####Cannon Pinion Adjuster: VELMA VALADEZ ([id number])[facility]ALTH[facility]ir[facility] ROSANGELA [facility] ([facility])[address] [place] [address] Hemoglobin (Bld) [Mass/Vol] 12.1 g/dL Normal 11.7-16.0 [facility] Comment on above: Performed By: #### L [id number], [id number] ####Cannon Pinion Adjuster: VELMA VALADEZ ([id number])[facility] SANCHEZROSANGELA RITTMAN ([facility])[address] [place] [address] MCH (RBC) [Entitic mass] 26.0 pg Normal 26.0-34.0 [facility] Comment on above: Performed By: #### L [id number], [id number] ####Cannon Pinion Adjuster: VELMA VALADEZ ([id number])[facility] SANCHEZROSANGELA [facility] ([facility])[address] [place] [address] MCHC 31.3 % Normal 30.5-36.0 [facility] Comment on above: Performed By: #### L [id number], [id number] ####Cannon Pinion Adjuster: VELMA VALADEZ ([id number])[facility] ([facility])[address] [place] [address] MCV (RBC) [Entitic vol] 83.2 fL Normal 77.0-99.0 [facility] Comment on above: Performed By: #### L [id number], [id number] ####Cannon Pinion Adjuster: VELMA VALADEZ ([id number])[facility] ([facility])[address] [place] [address] NRBC 0.0 /100 WBCs Normal 0.0-2.0 [facility] Comment on above: Performed By: #### L OE5257, [id number] ####Cannon Pinion Adjuster: VELMA VALADEZ ([id number])[facility] ([facility])[address] [place] [address] Platelet mean volume (Bld) [Entitic vol] 9.8 fL Normal 9.0-12.7 [facility] Comment on above: Result Comment: MPV is a calculated measurement using platelet volume ratio Performed By: #### L [id number], [id number] ####Cannon Pinion Adjuster: VELMA VALADEZ ([id number])[facility] ([facility])[address] [place] [address] [place] Platelets (Bld) [#/Vol] 303 10*3/uL Normal 140-440 [facility] Comment on above: Performed By: #### L [id number], [id number] ####Cannon Pinion Adjuster: VELAM VALADEZ ([id number])[facility] ([facility])[address] [place] [address] RBC (Bld) [#/Vol] 4.65 10*6/uL Normal 3.80-5.20 [facility] Comment on above: Performed By: #### L [id number], [id number] ####Cannon Pinion Adjuster: VELMA VALADEZ ([id number])[facility] ([facility])[address] WBC (Bld) [#/Vol] 9.1 10*3/uL Normal 3.6-10.7 [facility] Comment on above: Performed By: #### Weston OQ8539, [id number] ####Cannon Pinion Adjuster: VELMA VALADEZ ([id number])[facility] ([facility])[address] COMPREHENSIVE METABOLIC PANE Gilberto 08-03-2024 Albumin [Mass/Vol] 2.8 g/dL Low 3.4-4.8 [facility] Comment on above: Performed By: #### Weston AB17, [id number], LAB99 ####Cannon Pinion Adjuster: VELMA VALADEZ ([id number])[facility] ([facility])[address] ALP [Catalytic activity/Vol] 82 U/L Normal 40-150 [facility] Comment on above: Performed By: #### Weston REIS17, HDR261, LAB99 ####Cannon Pinion Adjuster: VELMA VALADEZ ([id number])[facility] ([facility])[address] ALT [Catalytic activity/Vol] 26 U/L Normal <30 [facility] Comment on above: Performed By: #### Weston AB17, JBV694, LAB99 ####Cannon Pinion Adjuster: VELMA VALADEZ ([id number])[facility] ([facility])[address] Anion gap [Moles/Vol] 9 mmol/L Normal 3-13 [facility] Comment on above: Performed By: #### L AB17, YWV261, LAB99 ####Cannon Pinion Adjuster: VELMA VALADEZ ([id number])[facility] ([facility])[address] [place] [address] [place] AST [Catalytic activity/Vol] 36 U/L High <34 [facility] Comment on above: Result Comment: TCSi gnificant interference from hemolysis. Result integrity compromised. Interpret with caution. Performed By: #### Weston AB17, [id number], LAB99 ####Cannon Pinion Adjuster: VELMA VALADEZ ([id number])[facility] ([facility])[address] [place] [address] [place] Bilirubin [Mass/Vol] 0.7 mg/dL Normal <1.2 [facility] Comment on above: Performed By: #### Weston AB17, OSI666, LAB99 ####Cannon Pinion Adjuster: VELMA VALADEZ ([id number])[facility] ([facility])[address] [place] [address] Calcium [Mass/Vol] 9.0 mg/dL Normal 8.8-10.0 [facility] Comment on above: Performed By: #### Weston HOLLY, [id number], LAB99 ####Cannon Pinion Adjuster: VELMA VALADEZ ([id number])[facility] SANCHEZROSANGELA [facility]TM[facility] ([facility])[address] [place] [address] [place] Chloride [Moles/Vol] 109 mmol/L High 98-107 [facility] Comment on above: Performed By: #### Weston AB17, [id number], LAB99 ####Cannon Pinion Adjuster: VELMA VALADEZ ([id number])[facility] ([facility])[address] [place] [address] [place] CO2 [Moles/Vol] 21 mmol/L Low 23-31 [facility] Comment on above: Performed By: #### L AB17, [id number], LAB99 ####Cannon Pinion Adjuster: VELMA VALADEZ ([id number])[facility] SANCHEZROSANGELA [facility]TM[facility] ([facility])[address] [place] [address] [place] Creatinine [Mass/Vol] 1.30 mg/dL High 0.57-1.11 [facility] Comment on above: Performed By: #### L AB17, [id number], LAB99 ####Cannon Pinion Adjuster: VELMA VALADEZ ([id number])[facility] ([facility])[address] [place] [address] [place] GLOMERULAR FILTRATION RATE ML/MIN/1.73 SQ M.PREDICTED 40.6 mL/min/1.73m*2 Low >60.0 [facility] Comment on above: Result Comment: Calc ulation based on the Chronic Kidney Disease Epidemiology Collaboration (CKD-EPI) equation refit without adjustment for race Performed By: #### L AB17, [id number], LAB99 ####[place] Adjuster: VELMA VALADEZ ([id number])[facility]ALTH[facility] ADAMES RITTMAN (SWRLAB)[address] Glucose [Mass/Vol] 103 mg/dL Normal 82-115 [facility] Comment on above: Performed By: #### [place] AB17, [id number], LAB99 ####[place]ion Adjuster: VELMA VALADEZ ([id number])[facility]ALTH[facility] ADAMES RITTMAN (SWRLAB)[address] [place] [address] Potassium [Moles/Vol] 5.9 mmol/L High 3.5-5.1 [facility] Comment on above: Result Comment: TCSi gnificant interference from hemolysis. Result integrity compromised. Interpret with caution. Performed By: #### L AB17, [id number], LAB99 ####Cannon [place]ion Adjuster: VELMA VALADEZ ([id number])[facility]ALTH[facility] ADAMES RITTMAN (SWRLAB)[address] [place] [address] [place] Protein [Mass/Vol] 6.7 g/dL Normal 6.4-8.3 [facility] Comment on above: Result Comment: TCPo tential interference from hemolysis Performed By: #### L AB17, [id number], LAB99 ####[place] Adjuster: VELMA VALADEZ ([id number])[facility]ALTH[facility] ADAMES RITTMAN (SWRLAB)[address] [place] [address] [place] Sodium [Moles/Vol] 139 mmol/L Normal 136-145 [facility] Comment on above: Performed By: #### L AB17, [id number], [id number] ####Cannon Pinion Adjuster: VELMA VALADEZ ([id number])[facility] ([facility])[address] [place] [address] Urea nitrogen [Mass/Vol] 34 mg/dL High 9- [facility] Comment on above: Performed By: #### L [id number], [id number], LAB99 ####Cannon Pinion Adjuster: VELMA VALADEZ ([id number])[facility] ([facility])[address] [place] [address] CT ABDOMEN PELVIS WO IV CONT RASTon 08-03-2024 CT ABDOMEN PELVIS WO IV CONTRAST Normal [facility] CT Abdomen and Pelvis WO con traston 08-03-2024 1. Extensive colonic diverticulosis without evidence of diverticulitis 2. Consolidation in the medial left lower lobe, possibly pneumonia 3. No bowel dilatation Report Dictated on Electronically Signed By: Ming Fry MD Electronically Signed Date/Time: 08/03/2024 4:05 AM [facility] [employer] Patient Name: MEL CARVER RD [facility] 1940 [id number] Exam Date/Time: 08/03/2024 03:05 Procedure: CT ABDOMEN [...] Lymph nodes: Unremarkable. No enlarged lymph nodes. [facility] Ming Fry MD - 08/03/2024 Patient Name: MEL POP : 1940 [facility]#: [id number] Exam Date/Time: 08/03/2024 03:05 Procedure: CT ABDOMEN [...] Electronically Signed Date/Time: 08/03/2024 4:05 AM EST [facility] [employer] Radiology Study observation (narrative) [facility] CT Abdomen and Pelvis WO con trastOrdered By: Ming Fry on 08-03-2024 [facility] [employer] Work Phone: Comprehensive metabolic 1998 panelon 08-03-2024 Albumin [Mass/Vol] 2.8 g/dL Low 3.4 - 4.8 g/dL [facility] ALP [Catalytic activity/Vol] 82 U/L 40 - 150 U/L [facility] ALT [Catalytic activity/Vol] 26 U/L [facility]F - 30 U/L [facility] Anion gap [Moles/Vol] 9 mmol/L 3 - 13 mmol/L [facility] AST [Catalytic activity/Vol] 36 U/L High [facility]F - 34 U/L [facility] Comment on above: TC Significant interference from hemolysis. Result integrity compromised. Interpret with caution. Bilirubin [Mass/Vol] 0.7 mg/dL NINF - 1.2 mg/dL [facility] [employer] Calcium [Mass/Vol] 9 mg/dL 8.8 - 10. 0 mg/dL [facility] [employer] Chloride [Moles/Vol] 109 mmol/L High 98 - 10 7 mmol/L [facility] [employer] CO2 [Moles/Vol] 21 mmol/L Low 23 - 31 mmol/L [facility] Creatinine [Mass/Vol] 1.3 mg/dL High 0.57 - 1.11 mg/dL [facility] GFR/1.73 sq M.predicted (S/P/Bld) [Vol rate/Area] 40.6 mL/min Low - PINF [facility] Comment on above: Calculation based on the Chronic Kidney Disease Epidemiology Collaboration (CKD-EPI) equation refit without adjustment for race Glucose [Mass/Vol] 103 mg/dL 82 - 115 mg/dL [facility] Interpretation and review of laboratory results Abnormal [facility] Potassium [Moles/Vol] 5.9 mmol/L High 3.5 - 5.1 mmol/L [facility] Comment on above: TC Significant interference from hemolysis. Result integrity compromised. Interpret with caution. Protein [Mass/Vol] 6.7 g/dL 6.4 - 8.3 g/dL [facility] Comment on above: TC Potential interference from hemolysis Sodium [Moles/Vol] 139 mmol/L 136 - 145 mmol/L [facility] Urea nitrogen [Mass/Vol] 34 mg/dL High 9 - 23 mg/dL [facility] ED Nursing Noteon 08-03-2024 ED Nursing Note Pt placed in roundtrip Normal [facility] ED Nursing Note ED CT and ED xray notified that patient is ready Normal [facility] ED Provider Noteon ED Provider Note Normal [facility] GASTROINTESTINAL PCR PANELon 08-03-2024 GASTROINTESTINAL PCR PANEL Normal [facility] Comment on above: Performed By: #### L [id number] ####Cannon Pinion Adjuster: VELMA VALADEZ ([id number])[facility] ([address] Gastrointestinal pathogens p masoud OXANA+probe (Stl)Ordered By: Maximus Dimas on 08-03-2024 Adenovirus F 40/41 Not detected Not Detected [facility] Astrovirus Not detected Not Detected [facility] Campylobacter Not detected Not Detected [facility] Cryptosporidium Not detected Not Detected [facility] Cyclospora cayetanensis Not detected Not Detected [facility] Entamoeba histolytica Not detected Not Detected [facility] Enterotoxigenic E coli (ETEC) Not detected Not Detected [facility] Giardia lamblia Not detected Not Detected [facility] Interpretation and review of laboratory results Abnormal [facility] Norovirus GI/GII Detected Abnormal Not Detected [facility] Plesiomonas shigelloides Not detected Not Detected [facility] Rotavirus A Not detected Not Detected [facility] Salmonella Not detected Not Detected [facility] Sapovirus Not detected Not Detected [facility] Shiga toxin-producing E coli (STEC) Not detected Not Detected [facility] Shigella/Enteroinvasive E coli (EIEC) Not detected Not Detected [facility] Vibrio cholerae Not detected Not Detected [facility] Vibrio species Not detected Not Detected [facility] Yersinia enterocolitica Not detected Not Detected [facility] A positive Norovirus result on the Film Array GI panel should be interpreted in the context of the patient's history and clinical picture. If results are not consistent, result should be confirmed with a Norovirus specific assay. Methodology: Multiplex PCR [facility] LACTIC ACID WITH REFLEXon Lactate [Moles/Vol] 1.9 mmol/L Normal 0.5-2.2 [facility] Comment on above: Performed By: #### L [id number] ####Cannon Pinion Adjuster: VELMA VALADEZ ([id number])[facility] ([facility])[address] [place] [address] LIPASEon 08-03-2024 Lipase [Catalytic activity/Vol] 8 U/L Normal <55 [facility] Comment on above: Performed By: #### L AB17, [id number], LAB99 ####Cannon Pinion Adjuster: VELMA VALADEZ ([id number])[facility] (SWRL[facility])[address] [place] [address] Laboratory - Chemistry and C hemistry - challengeon 08-03-2024 Lactate [Moles/Vol] 1.9 mmol/L 0.5 - 2. 2 mmol/L [facility] Anion gap (Bld) [Moles/Vol] 8 mmol/L 3.00 - 13.00 [facility] Calcium.ionized (Bld) [Moles/Vol] 4.7 mg/dl 4.30 - 5.20 mg/dl [facility] Chloride [Moles/Vol] 107 mmol/L 98 - 11 4 mmol/L [facility] CO2 [Moles/Vol] 23 mmol/L 21 - 29 mmol/L [facility] Creatinine [Mass/Vol] 1.3 mg/dL 0.6 - 1.3 mg/dL [facility] GFR/1.73 sq M.predicted CKD-EPI (S/P/Bld) [Vol rate/Area] 40.6 [facility] Comment on above: KDIGO guidelines pro [...] 118 mg/dL High 70 - 100 mg/dL [facility] Potassium [Moles/Vol] 4.3 mmol/L 3.4 - 5.1 mmol/L [facility] Sodium [Moles/Vol] 138 mmol/L 133 - 145 mmol/L [facility] Urea (Bld) [Mass/Vol] 33 mg/dL High 4 - 22 mg/dL [facility] Lipase [Catalytic activity/Vol] 8 U/L NINF - 55 U/L [facility] Magnesium [Mass/Vol] 1.9 mg/dL 1.6 - 2 .6 mg/dL [facility] Laboratory - Microbiology an d Antimicrobial susceptibilityon 08-03-2024 FLUAV RNA OXANA+probe Ql (Resp) Not detected Not Detected [facility] FLUBV RNA OXANA+probe Ql (Resp) Not detected Not Detected [facility] RSV RNA OXANA+probe Ql (Resp) Not detected Not Detected [facility] SARS-CoV-2 (COVID-19) RNA OXANA+probe Ql (Resp) Not detected Not Detected [facility] SARS-CoV-2 (COVID-19) RNA OXANA+probe Ql (Unsp spec) Methodology: real-time, RT-PCR The SARS-CoV-2, Flu A/B, and RSV Combo assay is intended for in vitro diagnostic use under the FDA Emergency Use Authorization (EUA). This test has not been FDA cleared or approved. In compliance with this authorization, please visit www.fda.gov/media/91363 5/download or www.fda.gov/media/32849 6/download to access the applicable information sheets. [facility] MAGNESIUMon 08-03-2024 Magnesium [Mass/Vol] 1.9 mg/dL Normal 1.6-2.6 [facility] Comment on above: Result Comment: BUBBA R COMMENTS:Higher values can be expected in females during menses. Performed By: #### L AB17, [id number], LAB99 ####Cannon Pinion Adjuster: VELMA VALADEZ ([id number])[facility] ([facility])[address] [place] [address] MANUAL DIFFERENTIALon 2024 BASOPHILS (10*3/UL) IN BLOOD BY MANUAL COUNT 0.0 10*3/uL Normal 0.0-0.2 [facility] Comment on above: Performed By: #### L [id number], [id number] ####Cannon Pinion Adjuster: VELMA VALADEZ ([id number])[facility] ([facility])[address] [place] [address] [place] BASOPHILS TOTAL PER COUNTED LEUKOCYTES BY MANUAL COUNT 0 Normal [facility] Comment on above: Performed By: #### L [id number], [id number] ####Cannon Pinion Adjuster: VELMA VALADEZ ([id number])[facility] [place] [address] [place] BASOPHILS/100 LEUKOCYTES IN BLOOD BY MANUAL COUNT 0 % Normal 0-2 [facility] Comment on above: Performed By: #### L [id number], [id number] ####Cannon Pinion Adjuster: VELMA VALADEZ ([id number])[facility] ([facility])[address] [place] [address] [place] CELLS COUNTED TOTAL (#) IN BLOOD 100 Normal [facility] Comment on above: Performed By: #### L [id number], [id number] ####Cannon Pinion Adjuster: VELMA VALADEZ ([id number])[facility] ([facility])[address] [place] [address] [place] DIFFERENTIAL METHOD Automated differenti al reported after manual slide review Normal [facility] Comment on above: Performed By: #### L [id number], [id number] ####Cannon Pinion Adjuster: VELMA VALADEZ ([id number])[facility] ([facility])[address] [place] [address] [place] EOSINOPHILS (10*3/UL) IN BLOOD BY MANUAL COUNT 0.1 10*3/uL Normal 0.0-0.5 [facility] Comment on above: Performed By: #### L [id number], [id number] ####Cannon Pinion Adjuster: VELMA VALADEZ ([id number])[facility] [place] [address] [place] EOSINOPHILS TOTAL PER COUNTED LEUKOCYTES BY MANUAL COUNT 1 Normal 0-1 [facility] Comment on above: Performed By: #### L [id number], [id number] ####Cannon Pinion Adjuster: VELMA VALADEZ ([id number])[facility] ([facility])[address] [place] [address] [place] EOSINOPHILS/100 LEUKOCYTES IN BLOOD BY MANUAL COUNT 1 % Normal 0-6 [facility] Comment on above: Performed By: #### L [id number], [id number] ####Cannon Pinion Adjuster: VELMA VALADEZ ([id number])[facility])[address] [place] [address] [place] LEUKOCYTE MORPHOLOGY FINDING IN BLOOD Normal Normal [facility] Comment on above: Performed By: #### L [id number], [id number] ####Cannon Pinion Adjuster: VELMA VALADEZ ([id number])[facility] ([facility])[address] [place] [address] [place] LEUKOCYTES (10*3/UL) NUCLEATED ERYTHROCYTE ADJUST 9.1 10*3/uL Normal 3.6-10.7 [facility] Comment on above: Performed By: #### L [id number], [id number] ####Cannon Pinion Adjuster: VELMA VALADEZ ([id number])[facility] ([facility])[address] [place] [address] [place] LYMPHOCYTES (10*3/UL) IN BLOOD BY MANUAL COUNT 0.5 10*3/uL Low 1.0-4.3 [facility] Comment on above: Performed By: #### L [id number], [id number] ####Cannon Pinion Adjuster: VELMA VALADEZ ([id number])[facility] ([facility])[address] [place] [address] [place] LYMPHOCYTES TOTAL PER COUNTED LEUKOCYTES BY MANUAL COUNT 5 Normal [facility] Comment on above: Performed By: #### L [id number], [id number] ####Cannon Pinion Adjuster: VELMA VALADEZ ([id number])[facility] ([facility])[address] [place] [address] [place] LYMPHOCYTES/100 LEUKOCYTES IN BLOOD BY MANUAL COUNT 5 % Low 15-45 [facility] Comment on above: Performed By: #### L [id number], [id number] ####Cannon Pinion Adjuster: VELMA VALADEZ ([id number])[facility] ([facility])[address] [place] [address] [place] MONOCYTES (10*3/UL) IN BLOOD BY MANUAL COUNT 0.5 10*3/uL Normal 0.0-0.9 [facility] Comment on above: Performed By: #### L [id number], [id number] ####Cannon Pinion Adjuster: VELMA VALADEZ ([id number])[facility] ([facility])[address] [place] [address] [place] MONOCYTES TOTAL PER COUNTED LEUKOCYTES BY MANUAL COUNT 6 Normal [facility] Comment on above: Performed By: #### L [id number], [id number] ####Cannon Pinion Adjuster: VELMA VALADEZ ([id number])[facility])[address] [place] [address] [place] MONOCYTES/100 LEUKOCYTES IN BLOOD BY MANUAL COUNT 6 % Normal 5-13 [facility] Comment on above: Performed By: #### L [id number], [id number] ####Cannon Pinion Adjuster: VELMA VALADEZ ([id number])[facility] ([facility])[address] [place] [address] [place] NEUTROPHILS (SEGS+BANDS) (10*3/UL) BY MANUAL COUNT 7.9 10*3/uL High 1.8-7.0 [facility] Comment on above: Performed By: #### L [id number], [id number] ####Cannon Pinion Adjuster: VELMA VALADEZ ([id number])[facility] ([facility])[address] [place] [address] [place] NEUTROPHILS TOTAL PER COUNTED LEUKOCYTES BY MANUAL COUNT 87 Normal [facility] Comment on above: Performed By: #### Weston [id number], [id number] ####Cannon Pinion Adjuster: VELMA VALADEZ ([id number])[facility] ([facility])[address] [place] [address] [place] PLATELET MORPHOLOGY IN BLOOD Normal Normal [facility] Comment on above: Performed By: #### Weston [id number], [id number] ####Cannon Pinion Adjuster: VELMA VALADEZ ([id number])[facility] ([facility])[address] [place] [address] [place] RBC MORPHOLOGY IN BLOOD Normal Normal [facility] Comment on above: Performed By: #### L [id number], [id number] ####Cannon Pinion Adjuster: VELMA VALADEZ ([id number])[facility])[address] [place] [address] [place] SEGEMENTED NEUTROPHILS/100 LEUKOCYTES BY MANUAL COUNT 87 % High 38-82 [facility] Comment on above: Performed By: #### L [id number], [id number] ####Cannon Pinion Adjuster: VELMA VALADEZ ([id number])[facility] ([facility])[address] [place] [address] [place] UNCLASSIFIED CELLS (10*3/UL) IN BLOOD BY MANUAL COUNT 0.1 10*3/uL Normal [facility] Comment on above: Performed By: #### L [id number], [id number] ####Cannon Pinion Adjuster: VELMA VALADEZ ([id number])[facility] ([facility])[address] UNCLASSIFIED CELLS/100 LEUKOCYTES IN BLOOD 1.00 % Normal [facility] Comment on above: Performed By: #### L [id number], [id number] ####Cannon Pinion Adjuster: VELMA VALADEZ ([id number])[facility] ([facility])[address] [place] [address] Magnesium [Mass/Vol]on 08-03 Higher values can be expected in females during menses. [facility] [employer] Manual differential performe d Ql (Bld)on 08-03-2024 Basophils (Bld) [#/Vol] 0 10*3/uL 0.0 - 0.2 10*3/uL [facility] [employer] Basophils Manual 0 [facility] alth Basophils/100 WBC (Bld) 0 % 0 - 2 % [facility] [employer] Cells Counted Total (Bld) [#] 100 {cells} [facility] [employer] Differential Method Automated differenti al reported after manual slide review [facility] Eosinophils (Bld) [#/Vol] 0.1 10*3/uL 0.0 - 0.5 10*3/uL [facility] [employer] Eosinophils Manual 1 0 - 1 [facility] Eosinophils/100 WBC (Bld) 1 % 0 - 6 % [facility] Leukocyte morphology finding Nom (Bld) Normal [facility] Lymphocytes (Bld) [#/Vol] 0.5 10*3/uL Low 1.0 - 4.3 10*3/uL [facility] [employer] Lymphocytes Manual 5 [facility] Lymphocytes/100 WBC (Bld) 5 % Low 15 - 45 % [facility] Monocytes (Bld) [#/Vol] 0.5 10*3/uL 0.0 - 0.9 10*3/uL [facility] [employer] Monocytes Manual 6 [facility] Monocytes/100 WBC (Bld) 6 % 5 - 13 % [facility] Neutrophils (Bld) [#/Vol] 7.9 10*3/uL High 1.8 - 7.0 10*3/uL [facility] Neutrophils Manual 87 [facility] Platelet morphology finding Nom (Bld) Normal [facility] RBC morphology finding Nom (Bld) Normal [facility] Segmented neutrophils/100 WBC (Bld) 87 % High 38 - 82 % [facility] Unclassified Cells % 1 % [facility] Unclassified Cells, Abs. 0.1 10*3/uL [facility] WBC corrected for nucl RBC (Bld) [#/Vol] 9.1 10*3/uL 3.6 - 10.7 10*3/uL [facility] No Panel Informationon 08-03 Interpretation and review of laboratory results Normal [facility] Interpretation and review of laboratory results Abnormal [facility] Performed by: [facility], [address] [place] [address] CLIA ID: [id number] [facility] Interpretation and review of laboratory results Normal [facility] No Panel InformationOrdered By: Christin Mayes on 08-03-2024 Interpretation and review of laboratory results Abnormal [facility] SARS-COV-2, FLU A/B, AND RSV COMBOon 08-03-2024 SARS-CoV-2 (COVID-19) RNA OXANA+probe Ql (Unsp spec) Normal [facility] Comment on above: Performed By: #### L [id number] ####Cannon Pinion Adjuster: VELMA VALADEZ ([id number])[facility] ([facility])[address] [place] [address] SARS-CoV-2, Flu A/B, and RSV Comboon 08-03-2024 Interpretation and review of laboratory results Normal [facility] XR Chest Single viewon 08-03 No acute abnormality Report Dictated on Electronically Signed By: Ming Fry MD Electronically Signed Date/Time: 08/03/2024 3:33 AM [facility] Patient Name: MEL [...] within the right humerus. No acute fracture. [facility] Ming Fry MD - 08/03/2024 [facility] Name[facility] POP [facility] 1940 [id number] Exam Date/Time: 08/03/2024 02:53 Procedure: XR CHEST [...] Electronically Signed Date/Time: 08/03/2024 3:33 AM EST [facility] Radiology Study observation (narrative) [facility] XR Chest Single viewOrdered By: Ming Fry on 08-03-2024 [facility] Work Phone: ANES POSTPROC EVALon 025 ANES POSTPROC EVAL HNO ID: [id number] Author: ROBINSON BRUNNER MD Service: ? Author Type: Anesthesiologist Type: Anesthesia Postprocedure Evaluation Filed: 07/31/2024 12:48 Note Text: POST ANESTHESIA EVALUATION NOTE : 1940 Procedure Summary Date: 07/27/24 Room / Location: [place] [address] / [facility] Anesthesia Start: 1114 Anesthesia Stop: 1322 Procedures: VITRECTOMY 25G [facility] PARS PLANA APPROACH W/ REMOVAL OF PRERETINAL [...] with this procedure. Documented by Mikhail Nichols APRN.SHACTOR 07/27/2024 1:22 PM EST SIGNATURE: Robinson Pizano MD PATIENT NAME: Mel Castillo DATE: July 31, 2024 TIME: 12:46 PM CSN: [id number] Normal [facility] ANES PRE-OPon 07-27-2024 ANES PRE-OP HNO ID: [id number] Author: ROBINSON BRUNNER MD Service: ? Author Type: Anesthesiologist Type: Anesthesia Preprocedure Evaluation Filed: 07/27/2024 11:10 Note Text: ANESTHESIOLOGY DAY OF SURGERY NOTE : 1940 Procedure Information Date/Time: 07/27/24 1110 Procedures: VITRECTOMY 25G [facility] PARS PLANA APPROACH W/ REMOVAL OF PRERETINAL CELLULAR MEMBRANE (Right: Eye) RELEASE OF VITREOUS, CHOROIDAL FLUID, PARS PLANA APPROACH (Right: Eye) Location: [place] [address] / [facility] Surgeons: Savana Lopez MD Estimated [...] tiotropium 2.5 (more content not included)... Normal [facility] OPERATIVE NOon 07-27-2024 OPERATIVE NO HNO ID: [id number] Author: SAVANA LOPEZ MD Service: Ophthalmology Author Type: Physician Type: Operative Report Filed: 07/27/2024 13:20 Note Text: [place] [address] [place] OPERATIVE REPORT LOG ID: [id number] Surgery/Procedure Date: 07/27/2024 Incision/Procedure Start Time: 11:39 AM Incision Close/Procedure End Time: 1:07 PM NAME: Mel Serna Pop [facility] #: [id number] SURGEON(S) AND METAL REED TUNER(S): Surgeons and Role: Panel 1: * Savana [...] was repaired by the use of max netsuite developer forceps and vitreous cutter. This was a [...] times thro (more content not included)... Normal [facility] BSCAN OD (RIGHT EYE)on 07-24 [facility] Right eye Photo documentatio non 07-24-2024 [facility] BSCAN OD (RIGHT EYE)on 07-23 Radiology Study observation (narrative) [facility] Right eye Photo documentatio non 07-23-2024 Radiology Study observation (narrative) [facility] CASE MANAGEMon 07-18-2024 CASE MANAGEM HNO ID: [id number] Author: DOMINIQUE RAMSAY LSW Service: ? Author Type: Hose Handler Type: Care Mgt Progress Note Filed: 07/18/2024 11:21 Note Text: CARE MANAGEMENT DISCHARGE NOTE SERVICE DATE: July 18, 2024 SERVICE TIME: 11:19 AM Admission Date: 07/07/2024 LOS: 11 days Discharge Arrangement Discharge Arrangement: [facility] Services Arranged Medical Services: Other: See Comment (N/A) Caregiver Assessment Caregiver is ready, willing and able to meet the patient's needs as recommended by the inter-professional team: Yes Name of Caregiver: Rosangela Tomlin Transportation Arrangements Transportation Arrangements: Ambulance Transportation Agency and Phone #:: [facility] [phone] Date of Trip: 07/18/24 Time of Trip: 1100 Type of Service: BLS Non-emergency Handoff Communication: Handoff to: Primary Care Physician Primary Care Physician Name/Phone: Jared Evans Additional Information: Discharge Information Row Name Admission (Current) from 07/07/2024 in [place] [address] [facility] Facility Agency [facility] [place] [address] Patient d/c ready to [facility]F via [facility] with orange picker machine operator scheduled for 11am today by Stretcher. Patient aware of plan. Bedside RN aware of plan and provided number to call report for nurse report; call [phone] :) General Car Supervisor Yard can transfer you to the 2nd floor. . 7000 and DC instructions sent to [facility] via [employer] and are in DC packet. DC packet in chart to go with patient. SIGNATURE: SHAQUILLE Garay PATIENT NAME: Mel Castillo DATE: July 18, 2024 TIME: 11:19 AM Normal [facility] CBC panel Auto (Bld)on 07-18 Erythrocyte distribution width (RBC) [Ratio] 17.5 % High 11.5-15.0 [facility] Comment on above: Order Comment: Speci men Type: BLOOD SPECIMEN Ordering Facility: [facility] Address: [address] [place] [address] Performed By: #### 5 8410-2 #### [facility] CLIA [id number] [address] [place] [address] [place] Hematocrit (Bld) [Volume fraction] 33.8 % Low 36.0-46.0 [facility] Comment on above: Order Comment: Speci men Type: BLOOD SPECIMEN Ordering Facility: [facility] Address: [address] [place] [address] Performed By: #### 5 8410-2 #### [facility] CLIA [id number] [address] [place] [address] [place] Hemoglobin (Bld) [Mass/Vol] 10.5 g/dL Low 11.5-15.5 [facility] Comment on above: Order Comment: Speci men Type: BLOOD SPECIMEN Ordering Facility: [facility] Address: [address] [place] [address] Performed By: #### 5 8410-2 #### [facility] CLIA [id number] [address] [place] [address] [place] MCH (RBC) [Entitic mass] 26.0 pg Normal 26.0-34.0 [facility] Comment on above: Order Comment: Speci men Type: BLOOD SPECIMEN Ordering Facility: [facility] Address: [address] [place] [address] Performed By: #### 5 8410-2 #### [facility] CLIA [id number] [address] [place] [address] [place] MCHC (RBC) [Mass/Vol] 31.1 g/dL Normal 30.5-36.0 [facility] Comment on above: Order Comment: Speci men Type: BLOOD SPECIMEN Ordering Facility: [facility] Address: [address] [place] [address] Performed By: #### 5 8410-2 #### [facility] CLIA [id number] [address] [place] [address] [place] MCV (RBC) [Entitic vol] 83.7 fL Normal 80.0-100.0 [facility] Comment on above: Order Comment: Speci men Type: BLOOD SPECIMEN Ordering Facility: [facility] Address: [address] [place] [address] Performed By: #### 5 8410-2 #### [facility] CLIA [id number] [address] [place] [address] [place] Nucleated RBC (Bld) [#/Vol] 10*3/uL Normal <0.01 [facility] Comment on above: Order Comment: Speci men Type: BLOOD SPECIMEN Ordering Facility: [facility] Address: [address] [place] [address] Performed By: #### 5 8410-2 #### [facility] CLIA [id number] [address] [place] [address] [place] Platelet mean volume (Bld) [Entitic vol] 9.3 fL Normal 9.0-12.7 [facility] Comment on above: Order Comment: Speci men Type: BLOOD SPECIMEN Ordering Facility: [facility] Address: [address] [place] [address] Performed By: #### 5 8410-2 #### [facility] CLIA [id number] [address] [place] [address] [place] Platelets (Bld) [#/Vol] 386 10*3/uL Normal 150-400 [facility] Comment on above: Order Comment: Speci men Type: BLOOD SPECIMEN Ordering Facility: [facility] Address: [address] [place] [address] Performed By: #### 5 8410-2 #### [facility] CLIA [id number] [address] [place] [address] [place] RBC (Bld) [#/Vol] 4.04 10*6/uL Normal 3.90-5.20 [facility] Comment on above: Order Comment: Speci men Type: BLOOD SPECIMEN Ordering Facility: [facility] Address: [address] [place] [address] Performed By: #### 5 8410-2 #### [facility] CLIA [id number] [address] [place] [address] [place] WBC (Bld) [#/Vol] 10.81 10*3/uL Normal 3.70-11.00 [facility] Comment on above: Order Comment: Speci men Type: BLOOD SPECIMEN Ordering Facility: [facility] Address: [address] [place] [address] Performed By: #### 5 8410-2 #### [facility] CLIA [id number] [address] [place] [address] [place] CNDSon 07-18-2024 CNDS HNO ID: [id number] Author: BRIANA PRITCHARD MD Service: General Internal [...] May 2024 who presents to OSH from [facility] for further evaluation of R acute [...] hemorraghic cho (more content not included)... Normal [facility] Renal function 2000 panelon 07-18-2024 Albumin [Mass/Vol] 3.2 g/dL Low 3.9-4.9 [facility] Comment on above: Order Comment: Speci men Type: BLOOD SPECIMEN Ordering Facility: [facility] Address: [address] [place] [address] Performed By: #### 2 4362-6 #### [facility] CLIA [id number] [address] [place] [address] [place] Anion gap [Moles/Vol] 11 mmol/L Normal 8-15 [facility] Comment on above: Order Comment: Speci men Type: BLOOD SPECIMEN Ordering Facility: [facility] Address: [address] [place] [address] Performed By: #### 2 4362-6 #### [facility] CLIA [id number] [address] [place] [address] [place] Calcium [Mass/Vol] 9.3 mg/dL Normal 8.5-10.2 [facility] Comment on above: Order Comment: Speci men Type: BLOOD SPECIMEN Ordering Facility: [facility] Address: [address] [place] [address] Performed By: #### 2 4362-6 #### [facility] CLIA [id number] [address] [place] [address] [place] Chloride [Moles/Vol] 102 mmol/L Normal 98-107 [facility] Comment on above: Order Comment: Speci men Type: BLOOD SPECIMEN Ordering Facility: [facility] Address: [address] [place] [address] Performed By: #### 2 4362-6 #### [facility] CLIA [id number] [address] [place] [address] [place] CO2 [Moles/Vol] 25 mmol/L Normal 22-30 [facility] Comment on above: Order Comment: Speci men Type: BLOOD SPECIMEN Ordering Facility: [facility] Address: [address] [place] [address] Performed By: #### 2 4362-6 #### [facility] CLIA [id number] [address] [place] [address] [place] Creatinine [Mass/Vol] 0.90 mg/dL Normal 0.58-0.96 [facility] Comment on above: Order Comment: Speci men Type: BLOOD SPECIMEN Ordering Facility: [facility] Address: [address] [place] [address] Performed By: #### 2 4362-6 #### [facility] IA [id number] [address] [place] [address] [place] Creatinine and Glomerular filtration rate.predicted panel (S/P/Bld) 63 mL/min/1.73m??? Normal >=60 [facility] Comment on above: Order Comment: Speci men Type: BLOOD SPECIMEN Ordering Facility: [facility] Address: [address] [place] [address] Result Comment: Isa mated Glomerular Filtration Rate [...] GFR. Performed By: #### 2 4362-6 #### [facility] CLIA [id number] [address] [place] [address] [place] Glucose [Mass/Vol] 105 mg/dL High 74-99 [facility] Comment on above: Order Comment: Speci men Type: BLOOD SPECIMEN Ordering Facility: [facility] Address: [address] [id number] Result Comment: The [place] [employer] (ADA) provides guidance for cutoff [...] Standards of Medical Care in Diabetes 2016, [place] [employer]. Diabetes Care. 2016.39(Suppl 1). Performed By: #### 2 4362-6 #### [facility] CLIA [id number] [address] [place] [address] [place] Phosphate [Mass/Vol] 3.0 mg/dL Normal 2.7-4.8 [facility] Comment on above: Order Comment: Speci men Type: BLOOD SPECIMEN Ordering Facility: [facility] Address: [address] [place] [address] Performed By: #### 2 4362-6 #### [facility] CLIA [id number] [address] [place] [address] [place] Potassium [Moles/Vol] 4.5 mmol/L Normal 3.7-5.1 [facility] Comment on above: Order Comment: Speci men Type: BLOOD SPECIMEN Ordering Facility: [facility] Address: [address] [place] [address] Performed By: #### 2 4362-6 #### [facility] CLIA [id number] [address] [place] [address] [place] Sodium [Moles/Vol] 138 mmol/L Normal 136-144 [facility] Comment on above: Order Comment: Speci men Type: BLOOD SPECIMEN Ordering Facility: [facility] Address: [address] [place] [address] Performed By: #### 2 4362-6 #### [facility] CLIA [id number] [address] [place] [address] [place] Urea nitrogen [Mass/Vol] 17 mg/dL Normal 7-21 [facility] Comment on above: Order Comment: Speci men Type: BLOOD SPECIMEN Ordering Facility: [facility] Address: [address] [place] [address] Performed By: #### 2 4362-6 #### [facility] CLIA [id number] [facility] [place] [address] [place] CASE MANAGEMon 07-17-2024 CASE MANAGEM HNO ID: [id number] Author: ?, ?, ? Service: ? Author Type: ? Type: Care Mgt Progress Note Filed: 07/17/2024 14:07 Note Text: CARE MANAGEMENT PROGRESS NOTE SERVICE DATE: 07/17/2024 SERVICE TIME: 2:07 PM LOS: 10 days Discharge packet completed and dropped off by mobile unit assistant Tamiko Holley. Packet is missing AVS/DC forms, please reach out to patient case manager with any discharge related questions. SIGNATURE: Tamiko Holley PATIENT NAME: Mel Castillo DATE: July 17, 2024 TIME: 2:07 PM Normal [facility] CASE MANAGEM HNO ID: [id number] Author: DOMINIQUE RAMSAY LSW Service: ? Author Type: Hose Handler Type: Care Mgt Progress Note Filed: 07/17/2024 13:44 Note Text: CARE MANAGEMENT HOLIDAY PLANNING NOTE DISCHARGE OR POSSIBLE DISCHARGE Date/Time: 07/18 at 11am Disposition: [facility] Facility - Precert Obtained: Yes Facility Name: [facility] Facility Phone #: Transport: Mode of Transportation: Ambulance Transportation Agency and Phone #: [facility] [phone] . Date of Trip: 07/18/2024 at 11am Other Concerns: 11 am DC via MMT trip# #[id number] to take Pt to [facility]. Pre-cert is approved, a bed is available, and Pt is medically ready. 7000 has been tasked. DC packet has been tasked. DNR form is on green chart. Weekend Passenger Barge Master Pager #: Please see Treatment Team for Care Management Weekend/Holiday coverage. SIGNATURE: SHAQUILLE Garay PATIENT NAME: Mel Castillo DATE: July 17, 2024 TIME: 1:42 PM PAGER/CONTACT #: Normal [facility] CASE MANAGEM HNO ID: [id number] Author: BASILIA CAPPS, ? Service: ? Author Type: ? Type: Care Mgt Progress Note Filed: 07/17/2024 13:14 Note Text: [facility] PRECERT NOTE [employer] MEDICARE PPO approved [facility] Facility for Rosangela Tomlin . Precert approved through 07/19/2024. For any additional questions regarding approvals, transport or care management needs, please contact the CM assigned to this patient in the Treatment Team. SIGNATURE: Basilia Capps DATE: July 17, 2024 TIME: 1:14 PM Normal [facility] CASE MANAGEM HNO ID: [id number] Author: DOMINIQUE RAMSAY LSW Service: General Internal Medicine Author Type: Hose Handler Type: Care Mgt Progress Note Filed: 07/17/2024 11:29 Note Text: Attestation signed by Thomas Car DO at 07/17/2024 11:37 AM Thomas Car D.O. PGY-2 Internal Medicine Resident [facility] Click here to page July 17, [...] problems. * Attending Physician: Briana Pritchard MD [facility] CBC panel Auto (Bld)on 07-17 Erythrocyte distribution width (RBC) [Ratio] 17.2 % High 11.5-15.0 [facility] Comment on above: Order Comment: Rhina mason Type: BLOOD SPECIMEN Ordering Facility: [facility] Address: [address] [place] [address] Performed By: #### 2 276-4 #### [facility] CLIA [id number] [address] [place] [address] [place] Hematocrit (Bld) [Volume fraction] 32.3 % Low 36.0-46.0 [facility] Comment on above: Order Comment: Rhina amson Type: BLOOD SPECIMEN Ordering Facility: [facility] Address: [address] [place] [address] Performed By: #### 2 276-4 #### [facility] CLIA [id number] [address] [place] [address] [place] Hemoglobin (Bld) [Mass/Vol] 10.2 g/dL Low 11.5-15.5 [facility] Comment on above: Order Comment: Rhina mason Type: BLOOD SPECIMEN Ordering Facility: [facility] Address: [address] [place] [address] Performed By: #### 2 276-4 #### [facility] CLIA [id number] [address] [place] [address] [place] MCH (RBC) [Entitic mass] 26.5 pg Normal 26.0-34.0 [facility] Comment on above: Order Comment: Speci men Type: BLOOD SPECIMEN Ordering Facility: [facility] Address: [address] [place] [address] Performed By: #### 2 276-4 #### [facility] CLIA [id number] [address] [place] [address] [place] MCHC (RBC) [Mass/Vol] 31.6 g/dL Normal 30.5-36.0 [facility] Comment on above: Order Comment: Speci men Type: BLOOD SPECIMEN Ordering Facility: [facility] Address: [address] [place] [address] Performed By: #### 2 276-4 #### [facility] CLIA [id number] [address] [place] [address] [place] MCV (RBC) [Entitic vol] 83.9 fL Normal 80.0-100.0 [facility] Comment on above: Order Comment: Speci men Type: BLOOD SPECIMEN Ordering Facility: [facility] Address: [address] [place] [address] Performed By: #### 2 276-4 #### [facility] CLIA [id number] [address] [place] [address] [place] Nucleated RBC (Bld) [#/Vol] 10*3/uL Normal <0.01 [facility] Comment on above: Order Comment: Speci men Type: BLOOD SPECIMEN Ordering Facility: [facility] Address: [address] [place] [address] Performed By: #### 2 276-4 #### [facility] CLIA [id number] [address] [place] [address] [place] Platelet mean volume (Bld) [Entitic vol] 9.7 fL Normal 9.0-12.7 [facility] Comment on above: Order Comment: Speci men Type: BLOOD SPECIMEN Ordering Facility: [facility] Address: [address] [place] [address] Performed By: #### 2 276-4 #### [facility] CLIA [id number] [address] [place] [address] [place] Platelets (Bld) [#/Vol] 362 10*3/uL Normal 150-400 [facility] Comment on above: Order Comment: Speci men Type: BLOOD SPECIMEN Ordering Facility: [facility] Address: [address] [place] [address] Performed By: #### 2 276-4 #### [facility] CLIA [id number] [address] [place] [address] [place] RBC (Bld) [#/Vol] 3.85 10*6/uL Low 3.90-5.20 [facility] Comment on above: Order Comment: Speci men Type: BLOOD SPECIMEN Ordering Facility: [facility] Address: [address] [place] [address] Performed By: #### 2 276-4 #### [facility] CLIA [id number] [address] [place] [address] [place] WBC (Bld) [#/Vol] 9.41 10*3/uL Normal 3.70-11.00 [facility] Comment on above: Order Comment: Speci men Type: BLOOD SPECIMEN Ordering Facility: [facility] Address: [address] [place] [address] Performed By: #### 2 276-4 #### [facility] CLIA [id number] [address] [place] [address] [place] Renal function 2000 panelon 07-17-2024 Albumin [Mass/Vol] 3.3 g/dL Low 3.9-4.9 [facility] Comment on above: Order Comment: Speci men Type: BLOOD SPECIMENOrdering Facility: [facility] Address: [address] [place] [address] Performed By: #### 2 4362-6 ####[facility] [id number] [facility] [place] [address] [place] Anion gap [Moles/Vol] 10 mmol/L Normal 8-15 [facility] Comment on above: Order Comment: Speci men Type: BLOOD SPECIMENOrdering Facility: [facility] Address: [address] [place] [address] Performed By: #### 2 4362-6 ####[facility] [id number] [facility] [place] [place] [address] [place] Calcium [Mass/Vol] 9.0 mg/dL Normal 8.5-10.2 [facility] Comment on above: Order Comment: Speci men Type: BLOOD SPECIMENOrdering Facility: [facility] Address: [address] [place] [address] Performed By: #### 2 4362-6 ####[facility] [id number] [place] [address] [place] Chloride [Moles/Vol] 101 mmol/L Normal 98-107 [facility] Comment on above: Order Comment: Speci men Type: BLOOD SPECIMENOrdering Facility: [facility] Address: [address] [place] [address] Performed By: #### 2 4362-6 ####[facility] [id number] [place] [address] [place] CO2 [Moles/Vol] 25 mmol/L Normal 22-30 [facility] Comment on above: Order Comment: Speci men Type: BLOOD SPECIMENOrdering Facility: [facility] Address: [address] [place], [place] [address] Performed By: #### 2 4362-6 ####[facility] [id number] [place] [id number] [place] Creatinine [Mass/Vol] 0.94 mg/dL Normal 0.58-0.96 [facility] Comment on above: Order Comment: Rhina mason Type: BLOOD SPECIMENOrdering Facility: [facility] Address: [address] [place] [address] Performed By: #### 2 4362-6 ####[facility] [id number] [place] [address] [place] Creatinine and Glomerular filtration rate.predicted panel (S/P/Bld) 60 mL/min/1.73m??? Normal >=60 [facility] Comment on above: Order Comment: Rhina mason Type: BLOOD SPECIMENOrdering Facility: [facility] Address: [address] [place] [address] Result Comment: Isa mated Glomerular Filtration Rate [...] actual GFR. Performed By: #### 2 4362-6 ####[facility] [id number] [place] [address] [place] Glucose [Mass/Vol] 112 mg/dL High 74-99 [facility] Comment on above: Order Comment: Rhina mason Type: BLOOD SPECIMENOrdering Facility: [facility] Address: [address] [place] [address] Result Comment: The [place] Diabetes Association (ADA) provides guidance for cutoff [...] Standards of Medical Care in Diabetes 2016, [place] [employer]. Diabetes Care. 2016.39(Suppl 1). Performed By: #### 2 4362-6 ####[facility] [id number] [place] [address] [place] Phosphate [Mass/Vol] 2.2 mg/dL Low 2.7-4.8 [facility] Comment on above: Order Comment: Speci men Type: BLOOD SPECIMENOrdering Facility: [facility] Address: [address] [place] [address] Performed By: #### 2 4362-6 ####[facility] [id number] [place] [address] [place] Potassium [Moles/Vol] 4.6 mmol/L Normal 3.7-5.1 [facility] Comment on above: Order Comment: Speci men Type: BLOOD SPECIMENOrdering Facility: [facility] Address: [address] [place] [address] Performed By: #### 2 4362-6 ####[facility] [id number] [place] [address] [place] Sodium [Moles/Vol] 136 mmol/L Normal 136-144 [facility] Comment on above: Order Comment: Speci men Type: BLOOD SPECIMENOrdering Facility: [facility] Address: [address] [place] [address] Performed By: #### 2 4362-6 ####[facility] [id number] [place] [address] [place] Urea nitrogen [Mass/Vol] 20 mg/dL Normal 7-21 [facility] Comment on above: Order Comment: Speci men Type: BLOOD SPECIMENOrdering Facility: [facility] Address: [address] [place] [address] Performed By: #### 2 4362-6 ####[facility] [id number] [address] STATES OF [facility] THERAPY NTon 07-17-2024 THERAPY NT HNO ID: [id number] Author: SANTIAGO GUZMAN OT/L Service: Occupational Therapy Author Type: Occupational Therapist Type: Therapy (PT/OT/Speech/Resp) Filed: 07/17/2024 15:14 Note Text: Occupational Therapy Treatment Summary SERVICE DATE: 07/17/2024 SERVICE TIME: 1425 to 1504 ROOM: [place] [address] OT 6 Clicks Score: 15 DISCHARGE RECOMMENDATIONS [...] Fall Risk, Lines/Tubes/Drains CURRENT HOSPITAL COURSE Mel Kareem Castillo is a 83 year old female [...] (ADL), Muscle Weakness (generalized) TREATMENT INTERVENTIONS Self Mcc Management (58119) Timed Code Treatment (minutes): 39 Skilled Treatment [...] Sit to Stand, Standing Balance to Improve [place] with ADLs/Self-Care, Sitting Balance to Improve [place] with ADLs/Self-Care, Life Roles/Routines/Habits THERAPEUTIC SKILLS USED [...] to Radha (more content not included)... Normal [facility] NT HNO ID: [id number] Author: GABRIELLA DALEY, PT Service: Physical Therapy Author Type: Physical Therapist Type: Therapy (PT/OT/Speech/Resp) Filed: 07/17/2024 09:31 Note Text: Physical Therapy Evaluation Summary SERVICE DATE: 07/17/2024 SERVICE TIME: 832 to 911 ROOM: [place] [address] PT 6 Clicks Score: 18 DISCHARGE RECOMMENDATIONS [...] DIAGNOSIS Reduced mobility-other TREATMENT INTERVENTIONS $ Evaluation-Moderate (92038) Billed Units: 1 unit Therapeutic Activity (36395) Treatment Minutes: 10 $ Therapeutic Activity (10408) Billed Units: 1 unit Gait Training (89169) Treatment Minutes: 14 $ Gait Training (00991) Billed Units: 1 unit Evaluation, Therapeutic Activity (40697), Gait Training (80799) Timed Code Treatment (minutes): 24 Skilled Treatment [...] Conservation Training, (more content not included)... Normal [facility] BSCAN OD (RIGHT EYE)on 07-16 [facility] Radiology Study observation (narrative) [facility] CBC panel Auto (Bld)on 07-16 Erythrocyte distribution width (RBC) [Ratio] 17.8 % High 11.5-15.0 [facility] Comment on above: Order Comment: Speci men Type: BLOOD SPECIMEN Ordering Facility: [facility] Address: [address] [place] [address] Performed By: #### 5 8410-2 #### [facility] CLIA [id number] [address] [place] [address] [place] Hematocrit (Bld) [Volume fraction] 33.2 % Low 36.0-46.0 [facility] Comment on above: Order Comment: Speci men Type: BLOOD SPECIMEN Ordering Facility: [facility] Address: [address] [place] [address] Performed By: #### 5 8410-2 #### [facility] CLIA [id number] [address] [place] [address] [place] Hemoglobin (Bld) [Mass/Vol] 10.3 g/dL Low 11.5-15.5 [facility] Comment on above: Order Comment: Speci men Type: BLOOD SPECIMEN Ordering Facility: [facility] Address: [address] [place] [address] Performed By: #### 5 8410-2 #### [facility] CLIA [id number] [address] [place] [address] [place] MCH (RBC) [Entitic mass] 25.6 pg Low 26.0-34.0 [facility] Comment on above: Order Comment: Speci men Type: BLOOD SPECIMEN Ordering Facility: [facility] Address: [address] [place] [address] Performed By: #### 5 8410-2 #### [facility] CLIA [id number] [address] [place] [address] [place] MCHC (RBC) [Mass/Vol] 31.0 g/dL Normal 30.5-36.0 [facility] Comment on above: Order Comment: Speci men Type: BLOOD SPECIMEN Ordering Facility: [facility] Address: [address] [place] [address] Performed By: #### 5 8410-2 #### [facility] CLIA [id number] [address] [place] [address] [place] MCV (RBC) [Entitic vol] 82.4 fL Normal 80.0-100.0 [facility] Comment on above: Order Comment: Speci men Type: BLOOD SPECIMEN Ordering Facility: [facility] Address: [address] [place] [address] Performed By: #### 5 8410-2 #### [facility] CLIA [id number] [address] [place] [address] [place] Nucleated RBC (Bld) [#/Vol] 10*3/uL Normal <0.01 [facility] Comment on above: Order Comment: Speci men Type: BLOOD SPECIMEN Ordering Facility: [facility] Address: [address] [place] [address] Performed By: #### 5 8410-2 #### [facility] CLIA [id number] [address] [place] [address] [place] Platelet mean volume (Bld) [Entitic vol] 9.8 fL Normal 9.0-12.7 [facility] Comment on above: Order Comment: Speci men Type: BLOOD SPECIMEN Ordering Facility: [facility] Address: [address] [place] [address] Performed By: #### 5 8410-2 #### [facility] CLIA [id number] [address] [place] [address] [place] Platelets (Bld) [#/Vol] 348 10*3/uL Normal 150-400 [facility] Comment on above: Order Comment: Speci men Type: BLOOD SPECIMEN Ordering Facility: [facility] Address: [address] [place] [address] Performed By: #### 5 8410-2 #### [facility] CLIA [id number] [address] [place] [address] [place] RBC (Bld) [#/Vol] 4.03 10*6/uL Normal 3.90-5.20 [facility] Comment on above: Order Comment: Speci men Type: BLOOD SPECIMEN Ordering Facility: [facility] Address: [address] [place] [address] Performed By: #### 5 8410-2 #### [facility] CLIA [id number] [address] [place] [address] [place] WBC (Bld) [#/Vol] 11.15 10*3/uL High 3.70-11.00 [facility] Comment on above: Order Comment: Speci men Type: BLOOD SPECIMEN Ordering Facility: [facility] Address: [address] [place] [address] Performed By: #### 5 8410-2 #### [facility] CLIA [id number] [address] [place] [address] [place] FUNDUS PHOTOS OU (BOTH EYES) on 07-16-2024 [facility] Radiology Study observation (narrative) [facility] Renal function 2000 panelon 07-16-2024 Albumin [Mass/Vol] 3.1 g/dL Low 3.9-4.9 [facility] Comment on above: Order Comment: Speci men Type: BLOOD SPECIMENOrdering Facility: [facility] Address: [address] [place] [address] Performed By: #### 2 4362-6 ####[facility] [id number] [place] [address] [place] Anion gap [Moles/Vol] 12 mmol/L Normal 8-15 [facility] Comment on above: Order Comment: Speci men Type: BLOOD SPECIMENOrdering Facility: [facility] Address: [address] [place] [address] Performed By: #### 2 4362-6 ####[facility] [id number] [facility] [place] [address] [place] Calcium [Mass/Vol] 9.0 mg/dL Normal 8.5-10.2 [facility] Comment on above: Order Comment: Speci men Type: BLOOD SPECIMENOrdering Facility: [facility] Address: [address] [place] [address] Performed By: #### 2 4362-6 ####[facility] [id number] [place] [address] [place] Chloride [Moles/Vol] 103 mmol/L Normal 98-107 [facility] Comment on above: Order Comment: Speci men Type: BLOOD SPECIMENOrdering Facility: [facility] Address: [address] [place] [address] Performed By: #### 2 4362-6 ####[facility] [id number] [place] [address] [place] CO2 [Moles/Vol] 23 mmol/L Normal 22-30 [facility] Comment on above: Order Comment: Speci men Type: BLOOD SPECIMENOrdering Facility: [facility] Address: [address] [place] [address] Performed By: #### 2 4362-6 ####[facility] [id number] [place] [address] [place] Creatinine [Mass/Vol] 1.09 mg/dL High 0.58-0.96 [facility] Comment on above: Order Comment: Speci men Type: BLOOD SPECIMENOrdering Facility: [facility] Address: [address] [place] [address] Performed By: #### 2 4362-6 ####[facility] [id number] [place] [address] [place] Creatinine and Glomerular filtration rate.predicted panel (S/P/Bld) 50 mL/min/1.73m??? Low >=60 [facility] Comment on above: Order Comment: Rhina mason Type: BLOOD SPECIMENOrdering Facility: [facility] Address: [address] [place] [address] Result Comment: Isa mated Glomerular Filtration Rate [...] actual GFR. Performed By: #### 2 4362-6 ####[facility] [id number] [place] [address] [place] Glucose [Mass/Vol] 103 mg/dL High 74-99 [facility] Comment on above: Order Comment: Rhina mason Type: BLOOD SPECIMENOrdering Facility: [facility] Address: [address] [place] [address] Result Comment: The [place] [employer] (ADA) provides guidance for cutoff [...] Standards of Medical Care in Diabetes 2016, [place] [employer]. Diabetes Care. 2016.39(Suppl 1). Performed By: #### 2 4362-6 ####[facility] [id number] [place] [id number] [place] Phosphate [Mass/Vol] 2.9 mg/dL Normal 2.7-4.8 [facility] Comment on above: Order Comment: Rhina mason Type: BLOOD SPECIMENOrdering Facility: [facility] Address: [address] [place] [address] Performed By: #### 2 4362-6 ####[facility] [id number] [place] [address] [place] Potassium [Moles/Vol] 4.5 mmol/L Normal 3.7-5.1 [facility] Comment on above: Order Comment: Speci men Type: BLOOD SPECIMENOrdering Facility: [facility] Address: [address] [place] [address] Performed By: #### 2 4362-6 ####[facility] [id number] [place] [address] [place] Sodium [Moles/Vol] 138 mmol/L Normal 136-144 [facility] Comment on above: Order Comment: Speci men Type: BLOOD SPECIMENOrdering Facility: [facility] Address: [address] [place] [address] Performed By: #### 2 4362-6 ####[facility] [id number] [place] [address] [place] Urea nitrogen [Mass/Vol] 22 mg/dL High 7-21 [facility] Comment on above: Order Comment: Speci men Type: BLOOD SPECIMENOrdering Facility: [facility] Address: [address] [place] [address] Performed By: #### 2 4362-6 ####[facility] [id number] [place] [id number] [place] THERAPY NTon 07-16-2024 THERAPY NT HNO ID: [id number] Author: SANTIAGO GUZMAN, OT/L Service: Occupational Therapy Author Type: Occupational Therapist Type: Therapy (PT/OT/Speech/Resp) Filed: 07/16/2024 15:10 Note Text: Occupational Therapy Treatment Summary SERVICE DATE: 07/16/2024 SERVICE TIME: 1415 to 1500 ROOM: [place] [address] OT 6 Clicks Score: 15 DISCHARGE RECOMMENDATIONS [...] (ADL), Muscle Weakness (generalized) TREATMENT INTERVENTIONS Self Mcc Management (47814) Timed Code Treatment (minutes): 45 Skilled Treatment [...] Sit to Stand, Standing Balance to Improve [place] with ADLs/Self-Care, Sitting Balance to Improve [place] with ADLs/Self-Care, Life Roles/Routines/Habits THERAPEUTIC SKILLS USED [...] Assistance Sit (more content not included)... Normal [facility] CBC panel Auto (Bld)on 07-15 Erythrocyte distribution width (RBC) [Ratio] 17.8 % High 11.5-15.0 [facility] Comment on above: Order Comment: Speci men Type: BLOOD SPECIMEN Ordering Facility: [facility] Address: [address] [place], [place] [address] Performed By: #### 2 4362-6 #### [facility] CLIA [id number] [address] [place] [address] [place] Hematocrit (Bld) [Volume fraction] 34.4 % Low 36.0-46.0 [facility] Comment on above: Order Comment: Speci men Type: BLOOD SPECIMEN Ordering Facility: [facility] Address: [address] [place] [address] Performed By: #### 2 4362-6 #### [facility] CLIA [id number] [address] [place] [address] [place] Hemoglobin (Bld) [Mass/Vol] 10.7 g/dL Low 11.5-15.5 [facility] Comment on above: Order Comment: Speci men Type: BLOOD SPECIMEN Ordering Facility: [facility] Address: [address] [place] [address] Performed By: #### 2 4362-6 #### [facility] CLIA [id number] [address] [place] [address] [place] MCH (RBC) [Entitic mass] 26.2 pg Normal 26.0-34.0 [facility] Comment on above: Order Comment: Speci men Type: BLOOD SPECIMEN Ordering Facility: [facility] Address: [address] [place] [address] Performed By: #### 2 4362-6 #### [facility] CLIA [id number] [address] [place] [address] [place] MCHC (RBC) [Mass/Vol] 31.1 g/dL Normal 30.5-36.0 [facility] Comment on above: Order Comment: Speci men Type: BLOOD SPECIMEN Ordering Facility: [facility] Address: [address] [place] [address] Performed By: #### 2 4362-6 #### [facility] CLIA [id number] [address] [place] [address] [place] MCV (RBC) [Entitic vol] 84.1 fL Normal 80.0-100.0 [facility] Comment on above: Order Comment: Speci men Type: BLOOD SPECIMEN Ordering Facility: [facility] Address: [address] [place] [address] Performed By: #### 2 4362-6 #### [facility] CLIA [id number] [address] [place] [address] [place] Nucleated RBC (Bld) [#/Vol] 10*3/uL Normal <0.01 [facility] Comment on above: Order Comment: Speci men Type: BLOOD SPECIMEN Ordering Facility: [facility] Address: [address] [place] [address] Performed By: #### 2 4362-6 #### [facility] CLIA [id number] [address] [place] [address] [place] Platelet mean volume (Bld) [Entitic vol] 10.1 fL Normal 9.0-12.7 [facility] Comment on above: Order Comment: Speci men Type: BLOOD SPECIMEN Ordering Facility: [facility] Address: [address] [place] [address] Performed By: #### 2 4362-6 #### [facility] CLIA [id number] [address] [place] [address] [place] Platelets (Bld) [#/Vol] 386 10*3/uL Normal 150-400 [facility] Comment on above: Order Comment: Speci men Type: BLOOD SPECIMEN Ordering Facility: [facility] Address: [address] [place] [address] Performed By: #### 2 4362-6 #### [facility] CLIA [id number] [address] [place] [address] [place] RBC (Bld) [#/Vol] 4.09 10*6/uL Normal 3.90-5.20 [facility] Comment on above: Order Comment: Speci men Type: BLOOD SPECIMEN Ordering Facility: [facility] Address: [address] [place] [address] Performed By: #### 2 4362-6 #### [facility] CLIA [id number] [address] [place] [address] [place] WBC (Bld) [#/Vol] 10.20 10*3/uL Normal 3.70-11.00 [facility] Comment on above: Order Comment: Speci men Type: BLOOD SPECIMEN Ordering Facility: [facility] Address: [address] [place] [address] Performed By: #### 2 4362-6 #### [facility] CLIA [id number] [address] [place] [address] [place] Renal function 2000 panelon 07-15-2024 Albumin [Mass/Vol] 3.5 g/dL Low 3.9-4.9 [facility] Comment on above: Order Comment: Speci men Type: BLOOD SPECIMENOrdering Facility: [facility] Address: [address] [place] [address] Performed By: #### 2 4362-6 ####[facility] [id number] [place] [address] [place] Anion gap [Moles/Vol] 12 mmol/L Normal 8-15 [facility] Comment on above: Order Comment: Speci men Type: BLOOD SPECIMENOrdering Facility: [facility] Address: [address] [place] [address] Performed By: #### 2 4362-6 ####[facility] [id number] [place] [address] [place] Calcium [Mass/Vol] 9.1 mg/dL Normal 8.5-10.2 [facility] Comment on above: Order Comment: Speci men Type: BLOOD SPECIMENOrdering Facility: [facility] Address: [address] [place] [address] Performed By: #### 2 4362-6 ####[facility] [id number] [place] [address] [place] Chloride [Moles/Vol] 101 mmol/L Normal 98-107 [facility] Comment on above: Order Comment: Speci men Type: BLOOD SPECIMENOrdering Facility: [facility] Address: [address] [place] [address] Performed By: #### 2 4362-6 ####[facility] [id number] [place] [address] [place] CO2 [Moles/Vol] 24 mmol/L Normal 22-30 [facility] Comment on above: Order Comment: Speci men Type: BLOOD SPECIMENOrdering Facility: [facility] Address: [address] [place] [address] Performed By: #### 2 4362-6 ####[facility] [id number] [place] [address] [place] Creatinine [Mass/Vol] 0.96 mg/dL Normal 0.58-0.96 [facility] Comment on above: Order Comment: Speci men Type: BLOOD SPECIMENOrdering Facility: [facility] Address: [address] [place] [address] Performed By: #### 2 4362-6 ####[facility] [id number] [address] [place] Creatinine and Glomerular filtration rate.predicted panel (S/P/Bld) 58 mL/min/1.73m??? Low >=60 [facility] Comment on above: Order Comment: Speci men Type: BLOOD SPECIMENOrdering Facility: [facility] Address: [address] [place] [address] Result Comment: Isa mated Glomerular Filtration Rate [...] actual GFR. Performed By: #### 2 4362-6 ####[facility] [id number] [place] [address] [place] Glucose [Mass/Vol] 93 mg/dL Normal 74-99 [facility] Comment on above: Order Comment: Speci men Type: BLOOD SPECIMENOrdering Facility: [facility] Address: [address] [place] [address] Result Comment: The [place] [employer] (ADA) provides guidance for cutoff [...] Standards of Medical Care in Diabetes 2016, [place] [employer]. Diabetes Care. 2016.39(Suppl 1). Performed By: #### 2 4362-6 ####[facility] [id number] [place] [address] [place] Phosphate [Mass/Vol] 3.1 mg/dL Normal 2.7-4.8 [facility] Comment on above: Order Comment: Speci men Type: BLOOD SPECIMENOrdering Facility: [facility] Address: [address] [place] [address] Performed By: #### 2 4362-6 ####[facility] [id number] [place] [address] [place] Potassium [Moles/Vol] 4.3 mmol/L Normal 3.7-5.1 [facility] Comment on above: Order Comment: Speci men Type: BLOOD SPECIMENOrdering Facility: [facility] Address: [address] [place] [address] Performed By: #### 2 4362-6 ####[facility] [id number] [place] [address] [place] Sodium [Moles/Vol] 137 mmol/L Normal 136-144 [facility] Comment on above: Order Comment: Speci men Type: BLOOD SPECIMENOrdering Facility: [facility] Address: [address] [place] [address] Performed By: #### 2 4362-6 ####[facility] [id number] [place] [address] [place] Urea nitrogen [Mass/Vol] 19 mg/dL Normal 7-21 [facility] Comment on above: Order Comment: Speci men Type: BLOOD SPECIMENOrdering Facility: [facility] Address: [address] [place] [address] Performed By: #### 2 4362-6 ####[facility] [id number] [place] [address] [place] CBC panel Auto (Bld)on 07-14 Erythrocyte distribution width (RBC) [Ratio] 17.9 % High 11.5-15.0 [facility] Comment on above: Order Comment: Speci men Type: BLOOD SPECIMEN Ordering Facility: [facility] Address: [address] [place] [address] Performed By: #### 2 4362-6 #### [facility] CLIA [id number] [address] [place] [address] [place] Hematocrit (Bld) [Volume fraction] 33.8 % Low 36.0-46.0 [facility] Comment on above: Order Comment: Speci men Type: BLOOD SPECIMEN Ordering Facility: [facility] Address: [address] [place], [place] [address] Performed By: #### 2 4362-6 #### [facility] CLIA [id number] [address] [place] [address] [place] Hemoglobin (Bld) [Mass/Vol] 10.7 g/dL Low 11.5-15.5 [facility] Comment on above: Order Comment: Speci men Type: BLOOD SPECIMEN Ordering Facility: [facility] Address: [address] [place] [address] Performed By: #### 2 4362-6 #### [facility] CLIA [id number] [address] [place] [address] [place] MCH (RBC) [Entitic mass] 26.4 pg Normal 26.0-34.0 [facility] Comment on above: Order Comment: Speci men Type: BLOOD SPECIMEN Ordering Facility: [facility] Address: [address] [place] [address] Performed By: #### 2 4362-6 #### [facility] CLIA [id number] [address] [place] [address] [place] MCHC (RBC) [Mass/Vol] 31.7 g/dL Normal 30.5-36.0 [facility] Comment on above: Order Comment: Speci men Type: BLOOD SPECIMEN Ordering Facility: [facility] Address: [address] [place] [address] Performed By: #### 2 4362-6 #### [facility] CLIA [id number] [address] [place] [address] [place] MCV (RBC) [Entitic vol] 83.5 fL Normal 80.0-100.0 [facility] Comment on above: Order Comment: Speci men Type: BLOOD SPECIMEN Ordering Facility: [facility] Address: [address] [place] [address] Performed By: #### 2 4362-6 #### [facility] CLIA [id number] [address] [place] [address] [place] Nucleated RBC (Bld) [#/Vol] 10*3/uL Normal <0.01 [facility] Comment on above: Order Comment: Speci men Type: BLOOD SPECIMEN Ordering Facility: [facility] Address: [address] [place] [address] Performed By: #### 2 4362-6 #### [facility] CLIA [id number] [address] [place] [address] [place] Platelet mean volume (Bld) [Entitic vol] 10.3 fL Normal 9.0-12.7 [facility] Comment on above: Order Comment: Speci men Type: BLOOD SPECIMEN Ordering Facility: [facility] Address: [address] [place] [address] Performed By: #### 2 4362-6 #### [facility] CLIA [id number] [address] [place] [address] [place] Platelets (Bld) [#/Vol] 345 10*3/uL Normal 150-400 [facility] Comment on above: Order Comment: Speci men Type: BLOOD SPECIMEN Ordering Facility: [facility] Address: [address] [place] [address] Performed By: #### 2 4362-6 #### [facility] CLIA [id number] [address] [place] [address] [place] RBC (Bld) [#/Vol] 4.05 10*6/uL Normal 3.90-5.20 [facility] Comment on above: Order Comment: Speci men Type: BLOOD SPECIMEN Ordering Facility: [facility] Address: [address] [place] [address] Performed By: #### 2 4362-6 #### [facility] CLIA [id number] [address] [place] [address] [place] WBC (Bld) [#/Vol] 11.07 10*3/uL High 3.70-11.00 [facility] Comment on above: Order Comment: Speci men Type: BLOOD SPECIMEN Ordering Facility: [facility] Address: [address] [place] [address] Performed By: #### 2 4362-6 #### [facility] CLIA [id number] [address] [place] [address] [place] Renal function 2000 panelon 07-14-2024 Albumin [Mass/Vol] 3.5 g/dL Low 3.9-4.9 [facility] Comment on above: Order Comment: Speci men Type: BLOOD SPECIMEN Ordering Facility: [facility] Address: [address] [place] [address] Performed By: #### 2 4362-6 #### [facility] CLIA [id number] [address] [place] [address] [place] Anion gap [Moles/Vol] 14 mmol/L Normal 8-15 [facility] Comment on above: Order Comment: Speci men Type: BLOOD SPECIMEN Ordering Facility: [facility] Address: [address] [place] [address] Performed By: #### 2 4362-6 #### [facility] CLIA [id number] [address] [place] [address] [place] Calcium [Mass/Vol] 9.1 mg/dL Normal 8.5-10.2 [facility] Comment on above: Order Comment: Speci men Type: BLOOD SPECIMEN Ordering Facility: [facility] Address: [address] [place] [address] Performed By: #### 2 4362-6 #### [facility] CLIA [id number] [address] [place] [address] [place] Chloride [Moles/Vol] 98 mmol/L Normal 98-107 [facility] Comment on above: Order Comment: Speci men Type: BLOOD SPECIMEN Ordering Facility: [facility] Address: [address] [place] [address] Performed By: #### 2 4362-6 #### [facility] CLIA [id number] [address] [place] [address] [place] CO2 [Moles/Vol] 22 mmol/L Normal 22-30 [facility] Comment on above: Order Comment: Speci men Type: BLOOD SPECIMEN Ordering Facility: [facility] Address: [address] [place] [address] Performed By: #### 2 4362-6 #### [facility] CLIA [id number] [address] [place] [address] [place] Creatinine [Mass/Vol] 1.01 mg/dL High 0.58-0.96 [facility] Comment on above: Order Comment: Speci men Type: BLOOD SPECIMEN Ordering Facility: [facility] Address: [address] [place] [address] Performed By: #### 2 4362-6 #### [facility] CLIA [id number] [address] [place] [address] [place] [facility] Creatinine and Glomerular filtration rate.predicted panel (S/P/Bld) 55 mL/min/1.73m??? Low >=60 [facility] Comment on above: Order Comment: Speci men Type: BLOOD SPECIMEN Ordering Facility: [facility] Address: [address] [place] [address] Result Comment: Isa mated Glomerular Filtration Rate [...] GFR. Performed By: #### 2 4362-6 #### [facility] CLIA [id number] [address] [place] [address] [place] Glucose [Mass/Vol] 131 mg/dL High 74-99 [facility] Comment on above: Order Comment: Speci men Type: BLOOD SPECIMEN Ordering Facility: [facility] Address: [address] [place] [address] Result Comment: The [place] [employer] Association (ADA) provides guidance for cutoff [...] Standards of Medical Care in Diabetes 2016, [place] [employer]. Diabetes Care. 2016.39(Suppl 1). Performed By: #### 2 4362-6 #### [facility] CLIA [id number] [address] [place] [address] [place] Phosphate [Mass/Vol] 3.5 mg/dL Normal 2.7-4.8 [facility] Comment on above: Order Comment: Speci men Type: BLOOD SPECIMEN Ordering Facility: [facility] Address: [address] [place] [address] Performed By: #### 2 4362-6 #### [facility] CLIA [id number] [address] [place] [address] [place] Potassium [Moles/Vol] 4.1 mmol/L Normal 3.7-5.1 [facility] Comment on above: Order Comment: Speci men Type: BLOOD SPECIMEN Ordering Facility: [facility] Address: [address] [place] [address] Performed By: #### 2 4362-6 #### [facility] CLIA [id number] [address] [place] [address] [place] Sodium [Moles/Vol] 134 mmol/L Low 136-144 [facility] Comment on above: Order Comment: Speci men Type: BLOOD SPECIMEN Ordering Facility: [facility] Address: [address] [place] [address] Performed By: #### 2 4362-6 #### [facility] CLIA [id number] [address] [place] [address] [place] Urea nitrogen [Mass/Vol] 19 mg/dL Normal 7-21 [facility] Comment on above: Order Comment: Speci men Type: BLOOD SPECIMEN Ordering Facility: [facility] Address: [address] [place] [address] Performed By: #### 2 4362-6 #### [facility] CLIA [id number] [address] [place] [address] [place] ANES POSTPROC EVALon 024 ANES POSTPROC EVAL HNO ID: [id number] Author: SIERRA FALK MD Service: ? Author Type: Anesthesiologist Type: Anesthesia Postprocedure Evaluation Filed: 07/13/2024 15:57 Note Text: POST ANESTHESIA EVALUATION NOTE : 1940 Procedure Summary Date: 07/13/24 Room / Location: [address] Anesthesia Start: 1222 Anesthesia Stop: 1337 [...] July 13, 2024 TIME: 3:57 PM CSN: [id number] Normal [facility] ANES PRE-OPon 07-13-2024 ANES PRE-OP HNO ID: [id number] Author: SIERRA FLAK MD Service: ? Author Type: Anesthesiologist Type: Anesthesia Preprocedure Evaluation Filed: 07/13/2024 09:44 Note Text: ANESTHESIOLOGY DAY OF SURGERY NOTE : 1940 Procedure Information Date/Time: 07/13/24 1404 Procedure: ASPIRATION VITREOUS, CHOROIDAL FLUID, PARS PLANA APPROACH (Right: Eye) Location: [place] [address] / [facility] Surgeons: Savana Lopez MD Estimated body mass [...] 0.5 tablets by mouth every 12 hours. bmjcslekiok-dbxflfgjl-p ilanter (TRELEGY ELLIPTA) 100-62.5-25 mcg inhalation powder Inhale 1 Puff as instructed once daily. acetaminophen (TYLENOL) 325 mg tablet Take 2 tablets by mouth every 6 hours as needed for pain. ascorbic acid (more content not included)... Normal [facility]NA[facility] HNO ID: [id number] Author: REBECA BELLE LSW Service: ? Author Type: Hose Handler Type: Care Mgt Progress Note Filed: 07/13/2024 16:25 Note Text: CARE MANAGEMENT WEEKEND PLANNING NOTE NO WEEKEND DISCHARGE Disposition: [facility] Facility Anticipated Discharge Date: TBD CM followed up with pt's daughter for SNF choices. Pt is currently in the OR- unable to send referrals in careport or complete "edit note" side bar. 1)[facility] Tom[facility] 2)[facility] 3)[facility] 4)[facility] 5)[facility] Will need accepting SNF and precert prior to dc. UPDATE 4:24pm: Referrals sent; awaiting response. Weekend Passenger Barge Master Pager #: Please see Treatment Team for Care Management Weekend/Holiday coverage. SIGNATURE: SHAQUILLE Nuñez PATIENT NAME: Mel Castillo DATE: July 13, 2024 TIME: 3:09 PM PAGER/CONTACT #: [phone] Normal [facility] CBC panel Auto (Bld)on 07-13 Erythrocyte distribution width (RBC) [Ratio] 17.6 % High 11.5-15.0 [facility] Comment on above: Order Comment: Speci men Type: BLOOD SPECIMENOrdering Facility: [facility] Address: [address] [place] [address] Performed By: #### 5 8410-2 ####[facility] [id number] [place] [address] [place] Hematocrit (Bld) [Volume fraction] 34.5 % Low 36.0-46.0 [facility] Comment on above: Order Comment: Speci men Type: BLOOD SPECIMENOrdering Facility: [facility] Address: [address] [place] [address] Performed By: #### 5 8410-2 ####[facility] [id number] [place] [address] [place] Hemoglobin (Bld) [Mass/Vol] 10.8 g/dL Low 11.5-15.5 [facility] Comment on above: Order Comment: Speci men Type: BLOOD SPECIMENOrdering Facility: [facility] Address: [address] [place] [address] Performed By: #### 5 8410-2 ####[facility] [id number] [place] [address] [place] MCH (RBC) [Entitic mass] 26.1 pg Normal 26.0-34.0 [facility] Comment on above: Order Comment: Speci men Type: BLOOD SPECIMENOrdering Facility: [facility] Address: [address] [place] [address] Performed By: #### 5 8410-2 ####[facility] [id number] [place] [address] [place] MCHC (RBC) [Mass/Vol] 31.3 g/dL Normal 30.5-36.0 [facility] Comment on above: Order Comment: Speci men Type: BLOOD SPECIMENOrdering Facility: [facility] Address: [address] [place] [address] Performed By: #### 5 8410-2 ####[facility] [id number] [place] [address] [place] MCV (RBC) [Entitic vol] 83.3 fL Normal 80.0-100.0 [facility] Comment on above: Order Comment: Speci men Type: BLOOD SPECIMENOrdering Facility: [facility] Address: [address] [place] [address] Performed By: #### 5 8410-2 ####[facility] [id number] [place] [address] [place] Nucleated RBC (Bld) [#/Vol] 10*3/uL Normal <0.01 [facility] Comment on above: Order Comment: Speci men Type: BLOOD SPECIMENOrdering Facility: [facility] Address: [address] [place] [address] Performed By: #### 5 8410-2 ####[facility] [id number] [place] [address] [place] Platelet mean volume (Bld) [Entitic vol] 9.7 fL Normal 9.0-12.7 [facility] Comment on above: Order Comment: Speci men Type: BLOOD SPECIMENOrdering Facility: [facility] Address: [address] [place] [address] Performed By: #### 5 8410-2 ####[facility] [id number] [place] [address] [place] Platelets (Bld) [#/Vol] 334 10*3/uL Normal 150-400 [facility] Comment on above: Order Comment: Speci men Type: BLOOD SPECIMENOrdering Facility: [facility] Address: [address] [place] [address] Performed By: #### 5 8410-2 ####[facility] [id number] [place] [address] [place] RBC (Bld) [#/Vol] 4.14 10*6/uL Normal 3.90-5.20 [facility] Comment on above: Order Comment: Speci men Type: BLOOD SPECIMENOrdering Facility: [facility] Address: [address] [place] [address] Performed By: #### 5 8410-2 ####[facility] [id number] [place] [address] [place] WBC (Bld) [#/Vol] 10.74 10*3/uL Normal 3.70-11.00 [facility] Comment on above: Order Comment: Speci men Type: BLOOD SPECIMENOrdering Facility: [facility] Address: [address] [place] [address] Performed By: #### 5 8410-2 ####[facility] [id number] [place] [address] [place] ECHO WITH AGITATED SALINE CO NTRASTon 07-13-2024 ECHO WITH AGITATED SALINE CONTRAST Echocardiography Report: Transthoracic Echo [facility] Bedside Date of service: 07/13/2024 3:54:27 PM Ordering physician: FELICIA LEVY Indication: Limited KYLE [...] * * * Final * * * [facility] : [id number] ISUID Normal [facility] NUTRITIONon 07-13-2024 NUTRITION HNO ID: [id number] Author: PAWAN PRESLEY DTR Service: Nutrition Therapy Author Type: Gambling Supervisor Type: Nutrition Filed: 07/13/2024 11:50 Note Text: NUTRITION THERAPY TOWER SWITCH OPERATOR NOTE SERVICE DATE: 07/13/2024 SERVICE TIME: 1045 Visit Type: Length of Stay Evaluation Goals Met: Not Met The patient was not available at time of visit. Per [facility], she has not met nutritional goals. Will [...] intake over: 5 days (As noted per Epic. Kcal noted at an average of 50% per day of meals served.) Appetite: Unable to determine GI Symptoms: Unable to determine at this time Anthropometrics: There is no height or weight on file to calculate BMI. Food Preferences: Add nutritional supplements Allergies: No food allergies noted per [facility]. MNT Billing: $ Routine Care : 1-15 minutes SIGNATURE: Pawan Presley DTR PATIENT NAME: Mel Castillo DATE: July 13, 2024 TIME: 11:49 AM Normal [facility] OPERATIVE NOon 07-13-2024 OPERATIVE NO HNO ID: [id number] Author: SAVANA LOPEZ MD Service: Ophthalmology Author Type: Physician Type: Operative Report Filed: 07/13/2024 13:32 Note Text: [place] [address] [place] [facility] CARE OPERATIVE REPORT LOG ID: [id number] Surgery/Procedure Date: 07/13/2024 Incision/Procedure Start Time: 12:43 PM Incision Close/Procedure End Time: 1:32 PM NAME: Mel Pop [facility] #: [id number] SURGEON(S) AND METAL REED TUNER(S): Surgeons and Role: * Savana Lopez MD [...] MD Vitreoretinal Surgery AND Ocular Inflammatory Diseases [facility] Eye Ismay Normal [facility] Renal function 2000 panelon 07-13-2024 Albumin [Mass/Vol] 3.5 g/dL Low 3.9-4.9 [facility] Comment on above: Order Comment: Rhina mason Type: BLOOD SPECIMENOrdering Facility: [facility] Address: [address] [place] [address] Performed By: #### 2 4362-6 ####[facility] [id number] [address] [address] [place] Anion gap [Moles/Vol] 10 mmol/L Normal 8-15 [facility] Comment on above: Order Comment: Rhina mason Type: BLOOD SPECIMENOrdering Facility: [facility] Address: [address] [place] [address] Performed By: #### 2 4362-6 ####[facility] [id number] [place] [address] [place] Calcium [Mass/Vol] 9.3 mg/dL Normal 8.5-10.2 [facility] Comment on above: Order Comment: Speci men Type: BLOOD SPECIMENOrdering Facility: [facility] Address: [address] [place] [address] Performed By: #### 2 4362-6 ####[facility] [id number] [place] [address] [place] Chloride [Moles/Vol] 100 mmol/L Normal 98-107 [facility] Comment on above: Order Comment: Speci men Type: BLOOD SPECIMENOrdering Facility: [facility] Address: [address] [place] [address] Performed By: #### 2 4362-6 ####[facility] [id number] [place] [address] [place] CO2 [Moles/Vol] 27 mmol/L Normal 22-30 [facility] Comment on above: Order Comment: Speci men Type: BLOOD SPECIMENOrdering Facility: [facility] Address: [address] [place] [address] Performed By: #### 2 4362-6 ####[facility] [id number] [place] [address] [place] Creatinine [Mass/Vol] 0.92 mg/dL Normal 0.58-0.96 [facility] Comment on above: Order Comment: Speci men Type: BLOOD SPECIMENOrdering Facility: [facility] Address: [address] [place], [place] [address] Performed By: #### 2 4362-6 ####[facility] [id number] [place] [address] [place] Creatinine and Glomerular filtration rate.predicted panel (S/P/Bld) 62 mL/min/1.73m??? Normal >=60 [facility] Comment on above: Order Comment: Rhina mason Type: BLOOD SPECIMENOrdering Facility: [facility] Address: [address] [place] [address] Result Comment: Isa mated Glomerular Filtration Rate [...] actual GFR. Performed By: #### 2 4362-6 ####[facility] [id number] [place] [address] [place] Glucose [Mass/Vol] 103 mg/dL High 74-99 [facility] Comment on above: Order Comment: Rhina mason Type: BLOOD SPECIMENOrdering Facility: [facility] Address: [address] [place] [address] Result Comment: The [place] [employer] Association (ADA) provides guidance for cutoff [...] Standards of Medical Care in Diabetes 2016, [place] [employer]. Diabetes Care. 2016.39(Suppl 1). Performed By: #### 2 4362-6 ####[facility] [id number] [place] [id number] [place] Phosphate [Mass/Vol] 3.5 mg/dL Normal 2.7-4.8 [facility] Comment on above: Order Comment: Rhina mason Type: BLOOD SPECIMENOrdering Facility: [facility] Address: [address] [place] [address] Performed By: #### 2 4362-6 ####[facility] [id number] [place] [address] [place] Potassium [Moles/Vol] 4.2 mmol/L Normal 3.7-5.1 [facility] Comment on above: Order Comment: Speci men Type: BLOOD SPECIMENOrdering Facility: [facility] Address: [address] [place] [address] Performed By: #### 2 4362-6 ####[facility] [id number] [place] [address] [place] Sodium [Moles/Vol] 137 mmol/L Normal 136-144 [facility] Comment on above: Order Comment: Speci men Type: BLOOD SPECIMENOrdering Facility: [facility] Address: [address] [place] [address] Performed By: #### 2 4362-6 ####[facility] [id number] [place] [address] [place] Urea nitrogen [Mass/Vol] 12 mg/dL Normal 7-21 [facility] Comment on above: Order Comment: Speci men Type: BLOOD SPECIMENOrdering Facility: [facility] Address: [address] [place] [address] Performed By: #### 2 4362-6 ####[facility]CL[facility] [id number] [place] [id number] [place] BSCAN OD (RIGHT EYE)on 07-12 [facility] Radiology Study observation (narrative) [facility] CBC panel Auto (Bld)on 07-12 Erythrocyte distribution width (RBC) [Ratio] 17.8 % High 11.5-15.0 [facility] Comment on above: Order Comment: Speci men Type: BLOOD SPECIMENOrdering Facility: [facility] Address: [address] [place] [address] Performed By: #### 5 8410-2 ####[facility]CL[facility] [id number] [place] [address] [place] Hematocrit (Bld) [Volume fraction] 34.7 % Low 36.0-46.0 [facility] Comment on above: Order Comment: Speci men Type: BLOOD SPECIMENOrdering Facility: [facility] Address: [address] [place] [address] Performed By: #### 5 8410-2 ####[facility] [id number] [place] [address] [place] Hemoglobin (Bld) [Mass/Vol] 10.6 g/dL Low 11.5-15.5 [facility] Comment on above: Order Comment: Speci men Type: BLOOD SPECIMENOrdering Facility: [facility] Address: [address] [place] [address] Performed By: #### 5 8410-2 ####[facility] [id number] [place] [address] [place] MCH (RBC) [Entitic mass] 26.4 pg Normal 26.0-34.0 [facility] Comment on above: Order Comment: Speci men Type: BLOOD SPECIMENOrdering Facility: [facility] Address: [address] [place] [address] Performed By: #### 5 8410-2 ####[facility] [id number] [place] [address] [place] MCHC (RBC) [Mass/Vol] 30.5 g/dL Normal 30.5-36.0 [facility] Comment on above: Order Comment: Speci men Type: BLOOD SPECIMENOrdering Facility: [facility] Address: [address] [place] [address] Performed By: #### 5 8410-2 ####[facility] [id number] [place] [address] [place] MCV (RBC) [Entitic vol] 86.3 fL Normal 80.0-100.0 [facility] Comment on above: Order Comment: Speci men Type: BLOOD SPECIMENOrdering Facility: [facility] Address: [address] [place] [address] Performed By: #### 5 8410-2 ####[facility] [id number] [place] [address] [place] Nucleated RBC (Bld) [#/Vol] 10*3/uL Normal <0.01 [facility] Comment on above: Order Comment: Speci men Type: BLOOD SPECIMENOrdering Facility: [facility] Address: [address] [place] [address] Performed By: #### 5 8410-2 ####[facility] [id number] [place] [address] [place] Platelet mean volume (Bld) [Entitic vol] 9.9 fL Normal 9.0-12.7 [facility] Comment on above: Order Comment: Speci men Type: BLOOD SPECIMENOrdering Facility: [facility] Address: [address] [place] [address] Performed By: #### 5 8410-2 ####[facility] [id number] [place] [address] [place] Platelets (Bld) [#/Vol] 301 10*3/uL Normal 150-400 [facility] Comment on above: Order Comment: Speci men Type: BLOOD SPECIMENOrdering Facility: [facility] Address: [address] [place] [address] Performed By: #### 5 8410-2 ####[facility] [id number] [place] [address] [place] RBC (Bld) [#/Vol] 4.02 10*6/uL Normal 3.90-5.20 [facility] Comment on above: Order Comment: Speci men Type: BLOOD SPECIMENOrdering Facility: [facility] Address: [address] [place], [place] [address] Performed By: #### 5 8410-2 ####[facility] [id number] [place] [id number] [place] WBC (Bld) [#/Vol] 10.07 10*3/uL Normal 3.70-11.00 [facility] Comment on above: Order Comment: Speci men Type: BLOOD SPECIMENOrdering Facility: [facility] Address: [address] [place] [address] Performed By: #### 5 8410-2 ####[facility] [id number] [place] [address] [place] PT EDon 07-12-2024 PT ED HNO ID: [id number] Author: GISSELL POPE RPh Service: Pharmacy Author [...] inpatient anticoagulant education. Gissell Pope RPh Normal [facility] Renal function 2000 panelon 07-12-2024 Albumin [Mass/Vol] 3.4 g/dL Low 3.9-4.9 [facility] Comment on above: Order Comment: Speci men Type: BLOOD SPECIMENOrdering Facility: [facility] Address: [address] [place] [address] Performed By: #### 2 4362-6 ####[facility] [id number] [facility] [place] [address] [place] Anion gap [Moles/Vol] 14 mmol/L Normal 8-15 [facility] Comment on above: Order Comment: Speci men Type: BLOOD SPECIMENOrdering Facility: [facility] Address: [address] [place] [address] Performed By: #### 2 4362-6 ####[facility] [id number] [place] [address] [place] Calcium [Mass/Vol] 9.3 mg/dL Normal 8.5-10.2 [facility] Comment on above: Order Comment: Speci men Type: BLOOD SPECIMENOrdering Facility: [facility] Address: [address] [place] [address] Performed By: #### 2 4362-6 ####[facility] [id number] [place] [address] [place] Chloride [Moles/Vol] 101 mmol/L Normal 98-107 [facility] Comment on above: Order Comment: Speci men Type: BLOOD SPECIMENOrdering Facility: [facility] Address: [address] [place] [address] Performed By: #### 2 4362-6 ####[facility] [id number] [place] [address] [place] CO2 [Moles/Vol] 21 mmol/L Low 22-30 [facility] Comment on above: Order Comment: Speci men Type: BLOOD SPECIMENOrdering Facility: [facility] Address: [address] [place], [place] [address] Performed By: #### 2 4362-6 ####[facility] [id number] [place] [id number] [place] Creatinine [Mass/Vol] 0.81 mg/dL Normal 0.58-0.96 [facility] Comment on above: Order Comment: Rhina mason Type: BLOOD SPECIMENOrdering Facility: [facility] Address: [address] [place] [address] Performed By: #### 2 4362-6 ####[facility] [id number] [place] [address] [place] Creatinine and Glomerular filtration rate.predicted panel (S/P/Bld) 72 mL/min/1.73m??? Normal >=60 [facility] Comment on above: Order Comment: Rhina mason Type: BLOOD SPECIMENOrdering Facility: [facility] Address: [address] [place] [address] Result Comment: Isa mated Glomerular Filtration Rate [...] actual GFR. Performed By: #### 2 4362-6 ####[facility] [id number] [place] [address] [place] Glucose [Mass/Vol] 100 mg/dL High 74-99 [facility] Comment on above: Order Comment: Rhina mason Type: BLOOD SPECIMENOrdering Facility: [facility] Address: [address] [place] [address] Result Comment: The [place] [employer] (ADA) provides guidance for cutoff [...] Standards of Medical Care in Diabetes 2016, [place] [employer]. Diabetes Care. 2016.39(Suppl 1). Performed By: #### 2 4362-6 ####[facility] [id number] [place] [address] [place] Phosphate [Mass/Vol] 2.7 mg/dL Normal 2.7-4.8 [facility] Comment on above: Order Comment: Speci men Type: BLOOD SPECIMENOrdering Facility: [facility] Address: [address] [place] [address] Performed By: #### 2 4362-6 ####[facility] [id number] [place] [address] [place] Potassium [Moles/Vol] 4.0 mmol/L Normal 3.7-5.1 [facility] Comment on above: Order Comment: Speci men Type: BLOOD SPECIMENOrdering Facility: [facility] Address: [address] [place] [address] Performed By: #### 2 4362-6 ####[facility] [id number] [place] [address] [place] Sodium [Moles/Vol] 136 mmol/L Normal 136-144 [facility] Comment on above: Order Comment: Speci men Type: BLOOD SPECIMENOrdering Facility: [facility] Address: [address] [place] [address] Performed By: #### 2 4362-6 ####[facility] [id number] [place] [id number] [place] Urea nitrogen [Mass/Vol] 12 mg/dL Normal 7-21 [facility] Comment on above: Order Comment: Speci men Type: BLOOD SPECIMENOrdering Facility: [facility] Address: [address] [place] [address] Performed By: #### 2 4362-6 ####[facility] [id number] [place] [id number] [place] Right eye Photo documentatio non 07-12-2024 [facility] Radiology Study observation (narrative) [facility] THERAPY NTon 07-12-2024 THERAPY NT HNO ID: [id number] Author: RYANN GUZMÁN OT/[place] Service: Occupational Therapy Author Type: Occupational Therapist Type: Therapy (PT/OT/Speech/Resp) Filed: 07/12/2024 12:26 Note Text: OCCUPATIONAL THERAPY MISSED VISIT SERVICE DATE: 07/12/2024 SERVICE TIME: 1226 ROOM: [place] [address] ([facility] OPHTHALMOLOGY) Patient not seen due to Test / Procedure. SIGNATURE: JUANY Willett PATIENT NAME: Mel Castillo DATE: July 12, 2024 TIME: 12:26 PM Normal [facility] CBC panel Auto (Bld)on 07-11 Erythrocyte distribution width (RBC) [Ratio] 17.6 % High 11.5-15.0 [facility] Comment on above: Order Comment: Speci men Type: BLOOD SPECIMEN [facility] Address: [address] [place] [address] Performed By: #### 5 8410-2 #### [facility] CLIA [id number] [address] [place] [address] [place] Hematocrit (Bld) [Volume fraction] 32.3 % Low 36.0-46.0 [facility] Comment on above: Order Comment: Speci men Type: BLOOD SPECIMEN [facility] Address: [address] [place] [address] Performed By: #### 5 8410-2 #### [facility] CLIA [id number] [address] [place] [address] [place] Hemoglobin (Bld) [Mass/Vol] 10.5 g/dL Low 11.5-15.5 [facility] Comment on above: Order Comment: Speci men Type: BLOOD SPECIMEN [facility] Address: [address] [place] [address] Performed By: #### 5 8410-2 #### [facility] CLIA [id number] [address] [place] [address] [place] MCH (RBC) [Entitic mass] 27.0 pg Normal 26.0-34.0 [facility] Comment on above: Order Comment: Speci men Type: BLOOD SPECIMEN [facility] Address: [address] [place] [address] Performed By: #### 5 8410-2 #### [facility] CLIA [id number] [address] [place] [address] [place] MCHC (RBC) [Mass/Vol] 32.5 g/dL Normal 30.5-36.0 [facility] Comment on above: Order Comment: Speci men Type: BLOOD SPECIMEN [facility] Address: [address] [place] [address] Performed By: #### 5 8410-2 #### [facility] CLIA [id number] [address] [place] [address] [place] MCV (RBC) [Entitic vol] 83.0 fL Normal 80.0-100.0 [facility] Comment on above: Order Comment: Speci men Type: BLOOD SPECIMEN [facility] Address: [address] [place] [address] Performed By: #### 5 8410-2 #### [facility] CLIA [id number] [address] [place] [address] [place] Nucleated RBC (Bld) [#/Vol] 10*3/uL Normal <0.01 [facility] Comment on above: Order Comment: Speci men Type: BLOOD SPECIMEN [facility] Address: [address] [place] [address] Performed By: #### 5 8410-2 #### [facility] CLIA [id number] [address] [id number] [address] [place] Platelet mean volume (Bld) [Entitic vol] 9.9 fL Normal 9.0-12.7 [facility] Comment on above: Order Comment: Speci men Type: BLOOD SPECIMEN [facility] Address: [address] [place] [address] Performed By: #### 5 8410-2 #### [facility] CLIA [id number] [address] [place] [address] [place] Platelets (Bld) [#/Vol] 289 10*3/uL Normal 150-400 [facility] Comment on above: Order Comment: Speci men Type: BLOOD SPECIMEN [facility] Address: [address] [place] [address] Performed By: #### 5 8410-2 #### [facility] CLIA [id number] [address] [place] [address] [place] RBC (Bld) [#/Vol] 3.89 10*6/uL Low 3.90-5.20 [facility] Comment on above: Order Comment: Speci men Type: BLOOD SPECIMEN [facility] Address: [address] [place] [address] Performed By: #### 5 8410-2 #### [facility] CLIA [id number] [address] [place] [address] [place] WBC (Bld) [#/Vol] 8.32 10*3/uL Normal 3.70-11.00 [facility] Comment on above: Order Comment: Speci men Type: BLOOD SPECIMEN [facility] Address: [address] [place] [address] Performed By: #### 5 8410-2 #### [facility] CLIA [id number] [address] [place] [address] [place] Renal function 2000 panelon 07-11-2024 Albumin [Mass/Vol] 3.4 g/dL Low 3.9-4.9 [facility] Comment on above: Order Comment: Speci men Type: BLOOD SPECIMENOrdering Facility: [facility] Address: [address] [place], [place] [address] Performed By: #### 2 4362-6 ####[facility] [id number] [place] [address] [place] Anion gap [Moles/Vol] 11 mmol/L Normal 8-15 [facility] Comment on above: Order Comment: Speci men Type: BLOOD SPECIMENOrdering Facility: [facility] Address: [address] [place] [address] Performed By: #### 2 4362-6 ####[facility] [id number] [place] [address] [place] Calcium [Mass/Vol] 8.9 mg/dL Normal 8.5-10.2 [facility] Comment on above: Order Comment: Speci men Type: BLOOD SPECIMENOrdering Facility: [facility] Address: [address] [place] [address] Performed By: #### 2 4362-6 ####[facility] [id number] [place] [address] [place] Chloride [Moles/Vol] 103 mmol/L Normal 98-107 [facility] Comment on above: Order Comment: Speci men Type: BLOOD SPECIMENOrdering Facility: [facility] Address: [address] [place] [address] Performed By: #### 2 4362-6 ####[facility] [id number] [place] [id number] [place] CO2 [Moles/Vol] 23 mmol/L Normal 22-30 [facility] Comment on above: Order Comment: Speci men Type: BLOOD SPECIMENOrdering Facility: [facility] Address: [address] [place], [place] [address] Performed By: #### 2 4362-6 ####[facility] [id number] [place] [id number] [place] Creatinine [Mass/Vol] 0.91 mg/dL Normal 0.58-0.96 [facility] Comment on above: Order Comment: Rhina mason Type: BLOOD SPECIMENOrdering Facility: [facility] Address: [address] [place] [address] Performed By: #### 2 4362-6 ####[facility] [id number] [place] [address] [place] [facility] Creatinine and Glomerular filtration rate.predicted panel (S/P/Bld) 62 mL/min/1.73m??? Normal >=60 [facility] Comment on above: Order Comment: Rhina mason Type: BLOOD SPECIMENOrdering Facility: [facility] Address: [address] [place] [address] Result Comment: Isa mated Glomerular Filtration Rate [...] actual GFR. Performed By: #### 2 4362-6 ####[facility] [id number] [place] [address] [place] Glucose [Mass/Vol] 98 mg/dL Normal 74-99 [facility] Comment on above: Order Comment: Rhina mason Type: BLOOD SPECIMENOrdering Facility: [facility] Address: [address] [place] [address] Result Comment: The [place] [employer] (ADA) provides guidance for cutoff [...] Standards of Medical Care in Diabetes 2016, [place] [employer]. Diabetes Care. 2016.39(Suppl 1). Performed By: #### 2 4362-6 ####[facility] [id number] [place] [address] [place] Phosphate [Mass/Vol] 2.8 mg/dL Normal 2.7-4.8 [facility] Comment on above: Order Comment: Speci men Type: BLOOD SPECIMENOrdering Facility: [facility] Address: [address] [place] [address] Performed By: #### 2 4362-6 ####[facility] [id number] [place] [address] [place] Potassium [Moles/Vol] 3.6 mmol/L Low 3.7-5.1 [facility] Comment on above: Order Comment: Speci men Type: BLOOD SPECIMENOrdering Facility: [facility] Address: [address] [place] [address] Performed By: #### 2 4362-6 ####[facility] [id number] [place] [address] [place] Sodium [Moles/Vol] 137 mmol/L Normal 136-144 [facility] Comment on above: Order Comment: Speci men Type: BLOOD SPECIMENOrdering Facility: [facility] Address: [address] [place] [address] Performed By: #### 2 4362-6 ####[facility] [id number] [place] [address] [place] Urea nitrogen [Mass/Vol] 15 mg/dL Normal 7-21 [facility] Comment on above: Order Comment: Speci men Type: BLOOD SPECIMENOrdering Facility: [facility] Address: [address] [place] [address] Performed By: #### 2 4362-6 ####[facility] [id number] [id number] [address] [place] CASE MANAGEMon 07-10-2024 CASE MANAGEM HNO ID: [id number] Author: TREY HUGHES LSW Service: Social Work Author Type: Hose Handler Type: Care Mgt Progress Note Filed: 07/10/2024 14:42 Note Text: CARE MANAGEMENT PROGRESS NOTE SERVICE DATE: 07/10/2024 SERVICE TIME: 2:38 PM LOS: 3 days Post-Acute Discharge Planning Patient Goal(s): Increase strength [place] of Choice Explained: [place] of Choice Given: Yes Post-Acute Discharge Plan: OT skilled for SNF, patient in need of 07/02 assistance d/t visual limitations. Awaiting PT note. FOC sent to daughter in law, she will discuss with patient tomorrow. Will need precert, transport, 7000. CM will continue to follow and update transitional plan as needed and appropriate through discharge. SIGNATURE: SHAQUILLE Avila PATIENT NAME: Mel Castillo DATE: July 10, 2024 TIME: 2:38 PM Normal [facility] CBC panel Auto (Bld)on 07-10 Erythrocyte distribution width (RBC) [Ratio] 17.5 % High 11.5-15.0 [facility] Comment on above: Order Comment: Speci isabella Type: BLOOD SPECIMEN [facility] Facility: [facility] Address: [address] [place] [address] Performed By: #### 2 276-4 #### [facility] CLIA [id number] [address] [place] [address] [place] Hematocrit (Bld) [Volume fraction] 31.7 % Low 36.0-46.0 [facility] Comment on above: Order Comment: Rhina mason Type: BLOOD SPECIMEN Ordering Facility: [facility] Address: [address] [place] [address] Performed By: #### 2 276-4 #### [facility] CLIA [id number] [address] [place] [address] [place] Hemoglobin (Bld) [Mass/Vol] 9.9 g/dL Low 11.5-15.5 [facility] Comment on above: Order Comment: Speci men Type: BLOOD SPECIMEN Ordering Facility: [facility] Address: [address] [place] [address] Performed By: #### 2 276-4 #### [facility] CLIA [id number] [address] [place] [address] [place] MCH (RBC) [Entitic mass] 26.0 pg Normal 26.0-34.0 [facility] Comment on above: Order Comment: Speci men Type: BLOOD SPECIMEN Ordering Facility: [facility] Address: [address] [place] [address] Performed By: #### 2 276-4 #### [facility] CLIA [id number] [address] [place] [address] [place] MCHC (RBC) [Mass/Vol] 31.2 g/dL Normal 30.5-36.0 [facility] Comment on above: Order Comment: Speci men Type: BLOOD SPECIMEN Ordering Facility: [facility] Address: [address] [place] [address] Performed By: #### 2 276-4 #### [facility] CLIA [id number] [address] [place] [address] [place] MCV (RBC) [Entitic vol] 83.2 fL Normal 80.0-100.0 [facility] Comment on above: Order Comment: Speci men Type: BLOOD SPECIMEN Ordering Facility: [facility] Address: [address] [place] [address] Performed By: #### 2 276-4 #### [facility] CLIA [id number] [address] [place] [address] Nucleated RBC (Bld) [#/Vol] 10*3/uL Normal <0.01 [facility] Comment on above: Order Comment: Speci men Type: BLOOD SPECIMEN Ordering Facility: [facility] Address: [address] [place] [address] Performed By: #### 2 276-4 #### [facility] CLIA [id number] [address] [place] [address] [place] Platelet mean volume (Bld) [Entitic vol] 10.3 fL Normal 9.0-12.7 [facility] Comment on above: Order Comment: Speci men Type: BLOOD SPECIMEN Ordering Facility: [facility] Address: [address] [place] [address] Performed By: #### 2 276-4 #### [facility] CLIA [id number] [address] [place] [address] [place] Platelets (Bld) [#/Vol] 336 10*3/uL Normal 150-400 [facility] Comment on above: Order Comment: Speci men Type: BLOOD SPECIMEN Ordering Facility: [facility] Address: [address] [place] [address] Performed By: #### 2 276-4 #### [facility] CLIA [id number] [address] [place] [address] [place] RBC (Bld) [#/Vol] 3.81 10*6/uL Low 3.90-5.20 [facility] Comment on above: Order Comment: Speci men Type: BLOOD SPECIMEN Ordering Facility: [facility] Address: [address] [place] [address] Performed By: #### 2 276-4 #### [facility] CLIA [id number] [address] [place] [address] [place] WBC (Bld) [#/Vol] 6.35 10*3/uL Normal 3.70-11.00 [facility] Comment on above: Order Comment: Speci men Type: BLOOD SPECIMEN Ordering Facility: [facility] Address: [address] [place] [address] Performed By: #### 2 276-4 #### [facility] CLIA [id number] [address] [place] [address] [place] Renal function 2000 panelon 12-24-2024 Albumin [Mass/Vol] 3.5 g/dL Low 3.9-4.9 [facility] Comment on above: Order Comment: Speci men Type: BLOOD SPECIMEN [facility] Address: [address] [place] [address] Performed By: #### 2 4362-6 #### [facility] CLIA [id number] [address] [place] [address] [place] Anion gap [Moles/Vol] 12 mmol/L Normal 8-15 [facility] Comment on above: Order Comment: Speci men Type: BLOOD SPECIMEN [facility] Address: [address] [place] [address] Performed By: #### 2 4362-6 #### [facility] CLIA [id number] [address] [place] [address] [place] Calcium [Mass/Vol] 9.0 mg/dL Normal 8.5-10.2 [facility] Comment on above: Order Comment: Speci men Type: BLOOD SPECIMEN [facility] Address: [address] [place] [address] Performed By: #### 2 4362-6 #### [facility] CLIA [id number] [address] [place] [address] [place] Chloride [Moles/Vol] 104 mmol/L Normal 98-107 [facility] Comment on above: Order Comment: Speci men Type: BLOOD SPECIMEN [facility] Address: [address] [place] [address] Performed By: #### 2 4362-6 #### [facility] CLIA [id number] [address] [place] [address] [place] CO2 [Moles/Vol] 22 mmol/L Normal 22-30 [facility] Comment on above: Order Comment: Speci men Type: BLOOD SPECIMEN [facility] Address: [address] [place] [address] Performed By: #### 2 4362-6 #### [facility] CLIA [id number] [address] [place] [address] [place] Creatinine [Mass/Vol] 0.93 mg/dL Normal 0.58-0.96 [facility] Comment on above: Order Comment: Rhina mason Type: BLOOD SPECIMEN [facility] Address: [address] [place] [address] Performed By: #### 2 4362-6 #### [facility] CLIA [id number] [address] [place] [address] [place] Creatinine and Glomerular filtration rate.predicted panel (S/P/Bld) 61 mL/min/1.73m??? Normal >=60 [facility] Comment on above: Order Comment: Rhina mason Type: BLOOD SPECIMEN [facility] Address: [address] [place] [address] Result Comment: Isa mated Glomerular Filtration Rate [...] GFR. Performed By: #### 2 4362-6 #### [facility] CLIA [id number] [address] [place] [address] [place] Glucose [Mass/Vol] 102 mg/dL High 74-99 [facility] Comment on above: Order Comment: Rhina mason Type: BLOOD SPECIMEN [facility] Address: [address] [place] [address] Result Comment: The [place] [employer] (ADA) provides guidance for cutoff [...] Standards of Medical Care in Diabetes 2016, [place] [employer]. Diabetes Care. 2016.39(Suppl 1). Performed By: #### 2 4362-6 #### [facility] CLIA [id number] [address] [place] [address] [place] Phosphate [Mass/Vol] 2.6 mg/dL Low 2.7-4.8 [facility] Comment on above: Order Comment: Speci men Type: BLOOD SPECIMEN [facility] Address: [address] [place] [address] Performed By: #### 2 4362-6 #### [facility] CLIA [id number] [address] [place] [address] [place] Potassium [Moles/Vol] 3.9 mmol/L Normal 3.7-5.1 [facility] Comment on above: Order Comment: Samiri men Type: BLOOD SPECIMEN [facility] Address: [address] [place] [address] Performed By: #### 2 4362-6 #### [facility] CLIA [id number] [address] [place] [address] [place] Sodium [Moles/Vol] 138 mmol/L Normal 136-144 [facility] Comment on above: Order Comment: Speci men Type: BLOOD SPECIMEN [facility] Address: [address] [place] [address] Performed By: #### 2 4362-6 #### [facility] CLIA [id number] [address] [place] [address] [place] Urea nitrogen [Mass/Vol] 21 mg/dL Normal 7-21 [facility] Comment on above: Order Comment: Speci men Type: BLOOD SPECIMEN [facility] Address: [address] [place] [address] Performed By: #### 2 4362-6 #### [facility] CLIA [id number] [address] [place] [address] [id number] [address] [place] THERAPY NTon 07-10-2024 THERAPY NT HNO ID: [id number] Author: SANTIAGO GUZMAN, OT/L Service: Occupational Therapy Author Type: Occupational Therapist Type: Therapy (PT/OT/Speech/Resp) Filed: 07/10/2024 10:00 Note Text: Occupational Therapy Evaluation Summary SERVICE DATE: 07/10/2024 SERVICE TIME: 839 to 919 ROOM: [place] [address] OT 6 Clicks Score: 15 DISCHARGE RECOMMENDATIONS [...] "shadows" 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 SNF rec at this time pending pt visual improvement, AND overall medical course. If pt were to d/c home she would require 24/7 assist d/t visual limitations. SNF rec at this time pending progress. Pt states understanding at this time. OT to follow while pt in house. PRECAUTIONS Fall Risk, Lines/Tubes/Drains CURRENT HOSPITAL COURSE Mel Augustraz Castillo is a 83 year old female [...] Muscle Weakness (generalized) TREATMENT INTERVENTIONS Evaluation, Self Mcc Management (24093) Timed Code Treatment (minutes): 25 Skilled Treatment [...] Sit to Stand, Standing Balance to Improve [place] with ADLs/Self-Care, Sitting Balance to Improve [place] with ADLs/Self-Care, Life Roles/Routines/Habits THERAPEUTIC SKILLS USED Therapeutic Use of Self, Physical Assist, Movement Facilitation, Management of Critical Lines, Tubes and/or Drains FUNCTIONAL STATUS Activities of Daily Living Assist Level Additional Information Feeding Minimal Assistance Grooming Moderate Assistance Bathing Upper Body Minimal Assistance Bathing Lower Body Ma (more content not included)... Normal [facility] CBC panel Auto (Bld)on 07-09 Erythrocyte distribution width (RBC) [Ratio] 17.7 % High 11.5-15.0 [facility] Comment on above: Order Comment: Speci men Type: BLOOD SPECIMEN [facility] Address: [address] [place] [address] Performed By: #### 2 4362-6 #### [facility] CLIA [id number] [address] [place] [address] [place] Hematocrit (Bld) [Volume fraction] 33.9 % Low 36.0-46.0 [facility] Comment on above: Order Comment: Speci men Type: BLOOD SPECIMEN Ordering [facility]: [facility] Address: [address] [place] [address] Performed By: #### 2 4362-6 #### [facility] CLIA [id number] [address] [place] [address] [place] Hemoglobin (Bld) [Mass/Vol] 10.5 g/dL Low 11.5-15.5 [facility] Comment on above: Order Comment: Speci men Type: BLOOD SPECIMEN Ordering [facility]: [facility] Address: [address] [place] [address] Performed By: #### 2 4362-6 #### [facility] CLIA [id number] [address] [place] [address] [place] MCH (RBC) [Entitic mass] 26.6 pg Normal 26.0-34.0 [facility] Comment on above: Order Comment: Speci men Type: BLOOD SPECIMEN [facility] Address: [address] [place] [address] Performed By: #### 2 4362-6 #### [facility] CLIA [id number] [address] [place] [address] [place] MCHC (RBC) [Mass/Vol] 31.0 g/dL Normal 30.5-36.0 [facility] Comment on above: Order Comment: Speci men Type: BLOOD SPECIMEN Ordering Facility: [facility] Address: [address] [place] [address] Performed By: #### 2 4362-6 #### [facility] CLIA [id number] [address] [place] [address] [place] MCV (RBC) [Entitic vol] 86.0 fL Normal 80.0-100.0 [facility] Comment on above: Order Comment: Speci men Type: BLOOD SPECIMEN Ordering Facility: [facility] Address: [address] [place] [address] Performed By: #### 2 4362-6 #### [facility] CLIA [id number] [address] [place] [address] [place] Nucleated RBC (Bld) [#/Vol] 10*3/uL Normal <0.01 [facility] Comment on above: Order Comment: Speci men Type: BLOOD SPECIMEN Ordering Facility: [facility] Address: [address] [place] [address] Performed By: #### 2 4362-6 #### [facility] CLIA [id number] [address] [place] [address] [place] Platelet mean volume (Bld) [Entitic vol] 10.4 fL Normal 9.0-12.7 [facility] Comment on above: Order Comment: Speci men Type: BLOOD SPECIMEN Ordering Facility: [facility] Address: [address] [place] [address] Performed By: #### 2 4362-6 #### [facility] CLIA [id number] [address] [place] [address] [place] Platelets (Bld) [#/Vol] 346 10*3/uL Normal 150-400 [facility] Comment on above: Order Comment: Speci men Type: BLOOD SPECIMEN Ordering Facility: [facility] Address: [address] [place] [address] Performed By: #### 2 4362-6 #### [facility] CLIA [id number] [address] [place] [address] [place] RBC (Bld) [#/Vol] 3.94 10*6/uL Normal 3.90-5.20 [facility] Comment on above: Order Comment: Speci men Type: BLOOD SPECIMEN Ordering Facility: [facility] Address: [address] [place] [address] Performed By: #### 2 4362-6 #### [facility] CLIA [id number] [address] [place] [address] [place] WBC (Bld) [#/Vol] 8.22 10*3/uL Normal 3.70-11.00 [facility] Comment on above: Order Comment: Speci men Type: BLOOD SPECIMEN Ordering Facility: [facility] Address: [address] [place] [address] Performed By: #### 2 4362-6 #### [facility] CLIA [id number] [address] [place] [address] [place] Renal function 2000 panelon 07-09-2024 Albumin [Mass/Vol] 3.6 g/dL Low 3.9-4.9 [facility] Comment on above: Order Comment: Speci men Type: BLOOD SPECIMEN Ordering Facility: [facility] Address: [address] [place] [address] Performed By: #### 2 4362-6 #### [facility] CLIA [id number] [address] [place] [address] [place] Anion gap [Moles/Vol] 11 mmol/L Normal 8-15 [facility] Comment on above: Order Comment: Speci men Type: BLOOD SPECIMEN Ordering Facility: [facility] Address: [address] [place] [address] Performed By: #### 2 4362-6 #### [facility] CLIA [id number] [address] [place] [address] [place] Calcium [Mass/Vol] 8.8 mg/dL Normal 8.5-10.2 [facility] Comment on above: Order Comment: Speci men Type: BLOOD SPECIMEN Ordering Facility: [facility] Address: [address] [place] [address] Performed By: #### 2 4362-6 #### [facility] CLIA [id number] [address] [place] [address] [place] Chloride [Moles/Vol] 103 mmol/L Normal 98-107 [facility] Comment on above: Order Comment: Speci men Type: BLOOD SPECIMEN Ordering Facility: [facility] Address: [address] [place] [address] Performed By: #### 2 4362-6 #### [facility] CLIA [id number] [address] [place] [address] [place] CO2 [Moles/Vol] 22 mmol/L Normal 22-30 [facility] Comment on above: Order Comment: Speci men Type: BLOOD SPECIMEN Ordering Facility: [facility] Address: [address] [place] [address] Performed By: #### 2 4362-6 #### [facility] CLIA [id number] [address] [place] [address] [place] Creatinine [Mass/Vol] 0.94 mg/dL Normal 0.58-0.96 [facility] Comment on above: Order Comment: Speci men Type: BLOOD SPECIMEN Ordering Facility: [facility] Address: [address] [place], [place] [address] Performed By: #### 2 4362-6 #### [facility] CLIA [id number] [address] [place] [address] [place] Creatinine and Glomerular filtration rate.predicted panel (S/P/Bld) 60 mL/min/1.73m??? Normal >=60 [facility] Comment on above: Order Comment: Rhina mason Type: BLOOD SPECIMEN Ordering Facility: [facility] Address: [address] [place] [address] Result Comment: Isa mated Glomerular Filtration Rate [...] GFR. Performed By: #### 2 4362-6 #### [facility] CLIA [id number] [address] [place] [address] [place] Glucose [Mass/Vol] 158 mg/dL High 74-99 [facility] Comment on above: Order Comment: Rhina mason Type: BLOOD SPECIMEN Ordering Facility: [facility] Address: [address] [place] [address] Result Comment: The [place] [employer] (ADA) provides guidance for cutoff [...] Standards of Medical Care in Diabetes 2016, [place] [employer]. Diabetes Care. 2016.39(Suppl 1). Performed By: #### 2 4362-6 #### [facility] CLIA [id number] [address] [place] [address] [place] Phosphate [Mass/Vol] 2.0 mg/dL Low 2.7-4.8 [facility] Comment on above: Order Comment: Speci men Type: BLOOD SPECIMEN Ordering Facility: [facility] Address: [address] [place] [address] Performed By: #### 2 4362-6 #### [facility] CLIA [id number] [address] [place] [address] [place] Potassium [Moles/Vol] 4.1 mmol/L Normal 3.7-5.1 [facility] Comment on above: Order Comment: Speci men Type: BLOOD SPECIMEN Ordering Facility: [facility] Address: [address] [place] [address] Performed By: #### 2 4362-6 #### [facility] CLIA [id number] [address] [place] [address] [place] Sodium [Moles/Vol] 136 mmol/L Normal 136-144 [facility] Comment on above: Order Comment: Speci men Type: BLOOD SPECIMEN Ordering Facility: [facility] Address: [address] [place] [address] Performed By: #### 2 4362-6 #### [facility] CLIA [id number] [address] [place] [address] [place] Urea nitrogen [Mass/Vol] 18 mg/dL Normal 7-21 [facility] Comment on above: Order Comment: Speci men Type: BLOOD SPECIMEN Ordering Facility: [facility] Address: [address] [place] [address] Performed By: #### 2 4362-6 #### [facility] CLIA [id number] [address] [place] [address] [place] CONSULTon 07-08-2024 CONSULT HNO ID: [id number] Author: JARED GILMORE MD Service: Ophthalmology Author [...] Tue-Tue, 7 am - 5 pm, page [phone] Tue-Tue, 5 pm - 7 am, page [phone] Weekends (Fri 5 pm to Mon 7 am), page [phone] EXAM: Base Eye Exam Visual Acuity Right Left Dist sc CF at 3' Tonometry (Applanation, 8:30 AM) Right Left Pressure 14 Pupils Dark Light Shape React Right 6 (more content not included)... Normal [facility] [id number] 07-07-2024 [id number] Normal [facility] BASIC METABOLIC PANELon - Anion gap [Moles/Vol] 4 mmol/L Normal 3-13 [facility] Comment on above: Performed By: #### L AB15 ####Cannon Pinion Adjuster: VELMA VALADEZ ([id number])[facility])[address] [place] [address] Calcium [Mass/Vol] 8.7 mg/dL Low 8.8-10.0 [facility] Comment on above: Performed By: #### L AB15 ####Cannon Pinion Adjuster: VELMA VALADEZ ([id number])[facility] ([facility])[address] [place] [address] Chloride [Moles/Vol] 111 mmol/L High 98-107 [facility] Comment on above: Performed By: #### L AB15 ####Cannon Pinion Adjuster: VELMA VALADEZ ([id number])[facility])[address] [place] [address] [place] CO2 [Moles/Vol] 23 mmol/L Normal 23-31 [facility] Comment on above: Performed By: #### L AB15 ####Cannon Pinion Adjuster: VELMA VALADEZ ([id number])[facility])[address] [place] [address] Creatinine [Mass/Vol] 0.84 mg/dL Normal 0.57-1.11 [facility] Comment on above: Performed By: #### L AB15 ####Cannon Pinion Adjuster: VELMA VALADEZ ([id number])[facility] ([facility])[address] [place] [address] GLOMERULAR FILTRATION RATE ML/MIN/1.73 SQ M.PREDICTED 68.6 mL/min/1.73m*2 Normal >60.0 [facility] Comment on above: Result Comment: Calc ulation based on the Chronic Kidney Disease Epidemiology Collaboration (CKD-EPI) equation refit without adjustment for race Performed By: #### L AB15 ####Cannon Pinion Adjuster: VELMA VALADEZ ([id number])[facility] ([facility])[address] [place] [address] Glucose [Mass/Vol] 102 mg/dL Normal 82-115 [facility] Comment on above: Performed By: #### L AB15 ####Cannon Pinion Adjuster: VELMA VALADEZ ([id number])[facility])[address] [place] [address] Potassium [Moles/Vol] 4.0 mmol/L Normal 3.5-5.1 [facility] Comment on above: Result Comment: [facility] potassium values may be up to 0.5 mmol/L lower than serum values. Performed By: #### L AB15 ####Cannon Pinion Adjuster: VELMA VALADEZ ([id number])[facility])[address] [place] [address] Sodium [Moles/Vol] 138 mmol/L Normal 136-145 [facility] Comment on above: Performed By: #### L AB15 ####Cannon Pinion Adjuster: VELMA VALADEZ ([id number])[facility])[address] [place] [address] Urea nitrogen [Mass/Vol] 19 mg/dL Normal 9-23 [facility] Comment on above: Performed By: #### L AB15 ####Cannon Pinion Adjuster: VELMA VALADEZ ([id number])[facility] [place] [address] Basic metabolic 1998 panelon 07-07-2024 Anion gap [Moles/Vol] 4 mmol/L 3 - 13 mmol/L [facility] Calcium [Mass/Vol] 8.7 mg/dL Low 8.8 - 10. 0 mg/dL [facility] Chloride [Moles/Vol] 111 mmol/L High 98 - 10 7 mmol/L [facility] CO2 [Moles/Vol] 23 mmol/L 23 - 31 mmol/L [facility] Creatinine [Mass/Vol] 0.84 mg/dL 0.57 - 1.11 mg/dL [facility] GFR/1.73 sq M.predicted (S/P/Bld) [Vol rate/Area] 68.6 mL/min - PINF [facility] Comment on above: Calculation based on the Chronic Kidney Disease Epidemiology Collaboration (CKD-EPI) equation refit without adjustment for race Glucose [Mass/Vol] 102 mg/dL 82 - 115 mg/dL [facility] Interpretation and review of laboratory results Abnormal [facility] Potassium [Moles/Vol] 4 mmol/L 3.5 - 5.1 mmol/L [facility] Comment on above: Plasma potassium chris ues may be up to 0.5 mmol/L lower than serum values. Sodium [Moles/Vol] 138 mmol/L 136 - 145 mmol/L [facility] Urea nitrogen [Mass/Vol] 19 mg/dL 9 - 23 mg/dL [facility] CBC W Auto Differential pane l (Bld)Ordered By: Devika Eisenberg on 07-07-2024 Basophils (Bld) [#/Vol] 0 10*3/uL 0.0 - 0.2 10*3/uL [facility] Basophils/100 WBC (Bld) 0.4 % 0.0 - 2.0 % [facility] Eosinophils (Bld) [#/Vol] 0.1 10*3/uL 0.0 - 0.5 10*3/uL [facility] Eosinophils/100 WBC (Bld) 1.3 % 0.0 - 6.0 % [facility] [employer] Erythrocyte distribution width (RBC) [Ratio] 17.6 % High 11.5 - 15.0 % [facility] Hematocrit (Bld) [Volume fraction] 29.9 % Low 35.0 - 47.0 % [facility] Hemoglobin (Bld) [Mass/Vol] 9.1 g/dL Low 11.7 - 16.0 g/dL [facility] [employer] Immature granulocytes (Bld) [#/Vol] 0 10*3/uL NINF - 0.1 10*3/uL [facility] Immature granulocytes/100 WBC (Bld) 0.2 % 0.0 - 2.0 % [facility] Interpretation and review of laboratory results Abnormal [facility] Lymphocytes (Bld) [#/Vol] 1.2 10*3/uL 1.0 - 4.3 10*3/uL [facility] Lymphocytes/100 WBC (Bld) 22 % 15.0 - 45.0 % [facility] MCH (RBC) [Entitic mass] 25.9 pg Low 26.0 - 34.0 pg [facility] MCHC (RBC) [Mass/Vol] 30.4 % Low 30.5 - 36.0 % [facility] MCV (RBC) [Entitic vol] 84.9 fL 77.0 - 99.0 fL [facility] Monocytes (Bld) [#/Vol] 0.6 10*3/uL 0.0 - 0.9 10*3/uL [facility] Monocytes/100 WBC (Bld) 10 % 5.0 - 13.0 % [facility] Neutrophils (Bld) [#/Vol] 3.7 10*3/uL 1.8 - 7.5 10*3/uL [facility] Neutrophils/100 WBC (Bld) 66.1 % 38.0 - 82.0 % [facility] Nucleated RBC/100 WBC (Bld) [Ratio] 0 % [facility] Platelet mean volume (Bld) [Entitic vol] 9.8 fL 9.0 - 12.7 fL [facility] Platelets (Bld) [#/Vol] 301 10*3/uL 140 - 440 10*3/uL [facility] RBC (Bld) [#/Vol] 3.52 10*6/uL Low 3.80 - 5.2 0 10*6/uL [facility] WBC (Bld) [#/Vol] 5.6 10*3/uL 3.6 - 10.7 10*3/uL [facility] CBC WITH AUTO DIFFERENTIALon 07-07-2024 Basophils (Bld) [#/Vol] 0.0 10*3/uL Normal 0.0-0.2 [facility] Comment on above: Performed By: #### L [id number] ####Cannon Pinion Adjuster: VELMA VALADEZ ([id number])[facility] ([facility])[address] [place] [address] Basophils/100 WBC (Bld) 0.4 % Normal 0.0-2.0 [facility] Comment on above: Performed By: #### L [id number] ####Cannon Pinion Adjuster: VELMA VALADEZ ([id number])[facility])[address] [place] [address] Eosinophils (Bld) [#/Vol] 0.1 10*3/uL Normal 0.0-0.5 [facility] Comment on above: Performed By: #### L [id number] ####Cannon Pinion Adjuster: VELMA VALADEZ ([id number])[facility])[address] [place] [address] Eosinophils/100 WBC (Bld) 1.3 % Normal 0.0-6.0 [facility] Comment on above: Performed By: #### L [id number] ####Cannon Pinion Adjuster: VELMA VALADEZ ([id number])[facility])[address] [place] [address] Erythrocyte distribution width (RBC) [Ratio] 17.6 % High 11.5-15.0 [facility] Comment on above: Performed By: #### L [id number] ####Cannon Pinion Adjuster: VELMA VALADEZ ([id number])[facility])[address] [place] [address] Hematocrit (Bld) [Volume fraction] 29.9 % Low 35.0-47.0 [facility] Comment on above: Performed By: #### L [id number] ####Cannon Pinion Adjuster: VELMA VALADEZ ([id number])[facility])[address] [place] [address] Hemoglobin (Bld) [Mass/Vol] 9.1 g/dL Low 11.7-16.0 [facility] Comment on above: Performed By: #### L [id number] ####Cannon Pinion Adjuster: VELMA VALADEZ ([id number])[facility])[address] [place] [address] IMMATURE GRANS % 0.2 % Normal 0.0-2.0 [facility] Comment on above: Performed By: #### L [id number] ####Cannon Pinion Adjuster: VELMA VALADEZ ([id number])[facility])[address] [place] [address] IMMATURE GRANS ABSOLUTE 0.0 10*3/uL Normal <0.1 [facility] Comment on above: Performed By: #### L [id number] ####Cannon Pinion Adjuster: VELMA VALADEZ ([id number])[facility])[address] [place] [address] Lymphocytes (Bld) [#/Vol] 1.2 10*3/uL Normal 1.0-4.3 [facility] Comment on above: Performed By: #### L [id number] ####Cannon Pinion Adjuster: VELMA VALADEZ ([id number])[facility])[address] [place] [address] Lymphocytes/100 WBC (Bld) 22.0 % Normal 15.0-45.0 [facility] Comment on above: Performed By: #### L [id number] ####Cannon Pinion Adjuster: VELMA VALADEZ ([id number])[facility])[address] [place] [address] MCH (RBC) [Entitic mass] 25.9 pg Low 26.0-34.0 [facility] Comment on above: Performed By: #### L [id number] ####Cannon Pinion Adjuster: VELMA [id number])[facility] ([facility])[address] [place] [address] MCHC 30.4 % Low 30.5-36.0 [facility] Comment on above: Performed By: #### L [id number] ####Cannon Pinion Adjuster: VELMA VALADEZ ([id number])[facility] ([facility])[address] [place] [address] MCV (RBC) [Entitic vol] 84.9 fL Normal 77.0-99.0 [facility] Comment on above: Performed By: #### L [id number] ####Cannon Pinion Adjuster: VELMA VALADEZ ([phone])[facility] ([facility])[address] [place] [address] Monocytes (Bld) [#/Vol] 0.6 10*3/uL Normal 0.0-0.9 [facility] Comment on above: Performed By: #### L [id number] ####Cannon Pinion Adjuster: VELMA VALADEZ ([id number])[facility] ([facility])[address] [place] [address] Monocytes/100 WBC (Bld) 10.0 % Normal 5.0-13.0 [facility] Comment on above: Performed By: #### L [id number] ####Cannon Pinion Adjuster: EVLMA VALADEZ ([id number])[facility] ([facility])[address] [place] [address] NEUTROPHILS ABSOLUTE 3.7 10*3/uL Normal 1.8-7.5 [facility] Comment on above: Performed By: #### L [id number] ####Cannon Pinion Adjuster: VELMA VALADEZ ([id number])[facility] ([facility])[address] [place] [address] Neutrophils/100 WBC (Bld) 66.1 % Normal 38.0-82.0 [facility] Comment on above: Performed By: #### L [id number] ####Cannon Pinion Adjuster: VELMA VALADEZ ([id number])[facility] ([facility])[address] [place] [address] NRBC 0.0 /100 WBCs Normal 0.0-2.0 [facility] Comment on above: Performed By: #### L [id number] ####Cannon Pinion Adjuster: VELMA VALADEZ ([id number])[facility])[address] [place] [address] Platelet mean volume (Bld) [Entitic vol] 9.8 fL Normal 9.0-12.7 [facility] Comment on above: Performed By: #### L [id number] ####Cannon Pinion Adjuster: VELMA VALADEZ ([id number])[facility] ([facility])[address] [place] [address] Platelets (Bld) [#/Vol] 301 10*3/uL Normal 140-440 [facility] Comment on above: Performed By: #### L [id number] ####Cannon Pinion Adjuster: VELMA VALADEZ ([id number])[facility] ([facility])[address] [place] [address] RBC (Bld) [#/Vol] 3.52 10*6/uL Low 3.80-5.20 [facility] Comment on above: Performed By: #### L [id number] ####Cannon Pinion Adjuster: VELMA VALADEZ ([id number])[facility] ([facility])[address] [place] [address] WBC (Bld) [#/Vol] 5.6 10*3/uL Normal 3.6-10.7 [facility] Comment on above: Performed By: #### L [id number] ####Cannon Pinion Adjuster: VELMA VALADEZ ([id number])[facility] ([facility])[address] [place] [address] CBC panel Auto (Bld)on 07-07 Erythrocyte distribution width (RBC) [Ratio] 17.5 % High 11.5-15.0 [facility] Comment on above: Order Comment: Speci men Type: BLOOD SPECIMEN Ordering Facility: [facility] Address: [address] [place] [address] Performed By: #### 2 4362-6 #### [facility] CLIA [id number] [address] [place] [address] [place] Hematocrit (Bld) [Volume fraction] 32.7 % Low 36.0-46.0 [facility] Comment on above: Order Comment: Speci men Type: BLOOD SPECIMEN Ordering Facility: [facility] Address: [address] [place] [address] Performed By: #### 2 4362-6 #### [facility] CLIA [id number] [address] [place] [address] [place] Hemoglobin (Bld) [Mass/Vol] 10.2 g/dL Low 11.5-15.5 [facility] Comment on above: Order Comment: Speci men Type: BLOOD SPECIMEN Ordering Facility: [facility] Address: [address] [place] [address] Performed By: #### 2 4362-6 #### [facility] CLIA [id number] [address] [place] [address] [place] MCH (RBC) [Entitic mass] 26.8 pg Normal 26.0-34.0 [facility] Comment on above: Order Comment: Speci men Type: BLOOD SPECIMEN Ordering Facility: [facility] Address: [address] [place] [address] Performed By: #### 2 4362-6 #### [facility] CLIA [id number] [address] [place] [address] [place] MCHC (RBC) [Mass/Vol] 31.2 g/dL Normal 30.5-36.0 [facility] Comment on above: Order Comment: Speci men Type: BLOOD SPECIMEN Ordering Facility: [facility] Address: [address] [place] [address] Performed By: #### 2 4362-6 #### [facility] CLIA [id number] [address] [place] [address] [place] MCV (RBC) [Entitic vol] 86.1 fL Normal 80.0-100.0 [facility] Comment on above: Order Comment: Speci men Type: BLOOD SPECIMEN Ordering Facility: [facility] Address: [address] [place] [address] Performed By: #### 2 4362-6 #### [facility] CLIA [id number] [address] [place] [address] [place] Nucleated RBC (Bld) [#/Vol] 10*3/uL Normal <0.01 [facility] Comment on above: Order Comment: Speci men Type: BLOOD SPECIMEN Ordering Facility: [facility] Address: [address] [place] [address] Performed By: #### 2 4362-6 #### [facility] CLIA [id number] [address] [place] [address] [place] Platelet mean volume (Bld) [Entitic vol] 9.8 fL Normal 9.0-12.7 [facility] Comment on above: Order Comment: Speci men Type: BLOOD SPECIMEN Ordering Facility: [facility] Address: [address] [place] [address] Performed By: #### 2 4362-6 #### [facility] CLIA [id number] [address] [place] [address] [place] Platelets (Bld) [#/Vol] 284 10*3/uL Normal 150-400 [facility] Comment on above: Order Comment: Speci men Type: BLOOD SPECIMEN Ordering Facility: [facility] Address: [address] [place] [address] Performed By: #### 2 4362-6 #### [facility] CLIA [id number] [address] [place] [address] [place] RBC (Bld) [#/Vol] 3.80 10*6/uL Low 3.90-5.20 [facility] Comment on above: Order Comment: Speci men Type: BLOOD SPECIMEN Ordering Facility: [facility] Address: [address] [place] [address] Performed By: #### 2 4362-6 #### [facility] CLIA [id number] [address] [place] [address] [place] WBC (Bld) [#/Vol] 5.72 10*3/uL Normal 3.70-11.00 [facility] Comment on above: Order Comment: Speci men Type: BLOOD SPECIMEN Ordering Facility: [facility] Address: [address] [place], [place] [address] [address] Performed By: #### 2 4362-6 #### [facility] CLIA [id number] [address] [place] [address] [place] [address] ORBITS WO IVCONon 12-21-[address] ORBITS WO IVCON * * *Final Report* * * DATE OF EXAM: Jul 07 2024 8:21PM [facility] 0510 - CT ORBITS WO IVCON / [...] changes. Unchanged appearance of left globe/phthisis bulbi. Physician President: PSCB Transcribe Date/Time: Jul 07 2024 8:24P Dictated by : ULICES LEBLANC MD This examination was interpreted and the report reviewed and electronically signed by: DE JAIN MD on Jul 07 2024 9:18PM EST [id number] Normal [facility] HISTORY PHYSICALon HISTORY PHYSICAL HNO ID: [id number] Author: FELICIA LEVY MD Service: General Internal [...] MD Date: 07/07/2024 Time: 3:[address] [facility] MEDICINE HISTORY AND PHYSICAL EXAM SERVICE DATE: 07/07/2024 SERVICE TIME: 3:01 PM Primary Care Physician: Jared Evans MD, MD PATIENT NAME: Mel Castillo DATE OF ADMISSION: 07/07/2024 11:35 AM ADMITTING PHYSICIAN: Manas Carmona MD PRIMARY SERVICE: Dae Miranda COVERAGE: DAY (Weekdays 7am to 5pm/Weekends 7am to 3pm): Please page Yuri Keith MD NIGHT (Weekdays 5pm to 7am/Weekends 3pm to 7am): Please page on-call resident [phone] (Jonathan Miranda Subjective CHIEF COMPLAINT: Acute angle closure glaucoma HPI: Mel Castillo is a 83 year old female with a PMH of COPD, HTN, Afib (on Lovenox), CKD Stage 3, L retinal detachment, recurrent embolic events, and most 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 She was subsequently taken by the banana expert for peripheral iridotomy's, which helped to reduce elevated intraocular pressure down to 10.2 mmHg in the R eye. Furthermore, was evaluated by stroke team at [facility] who reviewed her images and believed her headache and severe vision loss was secondary to the acute closure glaucoma and not stroke. Ultimately, it was determined that due to vision now being reduced to only one eye she required retinal specialist at [place] for repair of acute retinal detachment on [...] of breath., Disp: , Rfl: , 07/06/2024 pxaxwwcznnj-cvnzljmoi-b ilanter (TRELEGY ELLIPTA) 100-62.5-25 mcg inhalation powder, Inhale 1 (more content not included)... Normal [facility] NURSING PROGon 07-07-2024 NURSING PROG HNO ID: [id number] Author: SONNY CASTILLO, RADHA Service: Nursing Author Type: Registered Nurse Type: Nursing Progress Note Filed: 07/08/2024 04:35 Note Text: Other: Patient stated that while she was at CT scan her head got bumped. Patient denies pain in the area where her head was bumped. Patient endorses right eye pain. She had this pain prior to CT scan. No abrasions or contusions noted. [facility] team on-call notified. No new orders given at this time. Will continue to monitor. Instructed patient to notify nurse if she experiences pain. Normal [facility] NURSING PROG HNO ID: [id number] Author: WINIFRED HILLS RN Service: ? Author Type: Registered Nurse Type: Nursing Progress Note Filed: 07/07/2024 12:15 Note Text: Transfer Note: PATIENT NAME: Mel Castillo Patient Location: [place] [address] [address] Room: [place] [address] Patient transferred into room/unit 0-31 in stable condition. Actions taken: Team notified. Patient belongings with patient. Pt oriented to the floor policy and fall prevention protocol. Call light within reach. Normal [facility] Nursing Noteon 07-07-2024 Nursing Note Report called to [facility]. Normal [facility] Progress Noteon 07-07-2024 Progress Note Nutrition rescreen completed. Chart reviewed. Patient to be monitored and followed by the diet graphics edit technician. Normal [facility] Renal function 2000 panelon 07-07-2024 Albumin [Mass/Vol] 3.7 g/dL Low 3.9-4.9 [facility] Comment on above: Order Comment: Speci men Type: BLOOD SPECIMEN Ordering Facility: [facility] Address: [address] [place] [address] Performed By: #### 2 4362-6 #### [facility] CLIA [id number] [address] [place] [address] [place] [address] [place] Anion gap [Moles/Vol] 12 mmol/L Normal 8-15 [facility] Comment on above: Order Comment: Speci men Type: BLOOD SPECIMEN Ordering Facility: [facility] Address: [address] [id number] Performed By: #### 2 4362-6 #### [facility] CLIA [id number] [address] [place] [address] [place] Calcium [Mass/Vol] 9.2 mg/dL Normal 8.5-10.2 [facility] Comment on above: Order Comment: Speci men Type: BLOOD SPECIMEN Ordering Facility: [facility] Address: [address] [place] [address] Performed By: #### 2 4362-6 #### [facility] CLIA [id number] [address] [place] [address] [place] Chloride [Moles/Vol] 107 mmol/L Normal 98-107 [facility] Comment on above: Order Comment: Speci men Type: BLOOD SPECIMEN Ordering Facility: [facility] Address: [address] [place] [address] Performed By: #### 2 4362-6 #### [facility] CLIA [id number] [address] [place] [address] [place] CO2 [Moles/Vol] 20 mmol/L Low 22-30 [facility] Comment on above: Order Comment: Speci men Type: BLOOD SPECIMEN Ordering Facility: [facility] Address: [address] [place], [place] [address] Performed By: #### 2 4362-6 #### [facility] CLIA [id number] [address] [place] [address] [place] Creatinine [Mass/Vol] 0.82 mg/dL Normal 0.58-0.96 [facility] Comment on above: Order Comment: Speci men Type: BLOOD SPECIMEN Ordering Facility: [facility] Address: [address] [place], [place] [address] Performed By: #### 2 4362-6 #### [facility] CLIA [id number] [address] [place] [address] [place] Creatinine and Glomerular filtration rate.predicted panel (S/P/Bld) 71 mL/min/1.73m??? Normal >=60 [facility] Comment on above: Order Comment: Specrobson mason Type: BLOOD SPECIMEN Ordering Facility: [facility] Address: [address] [place] [address] Result Comment: Isa mated Glomerular Filtration Rate [...] GFR. Performed By: #### 2 4362-6 #### [facility] CLIA [id number] [address] [place] [address] [place] Glucose [Mass/Vol] 106 mg/dL High 74-99 [facility] Comment on above: Order Comment: Specrobson mason Type: BLOOD SPECIMEN Ordering Facility: [facility] Address: [address] [place] [address] Result Comment: The [place] Diabetes Association (ADA) provides guidance for cutoff [...] Standards of Medical Care in Diabetes 2016, [place] [employer]. Diabetes Care. 2016.39(Suppl 1). Performed By: #### 2 4362-6 #### [facility] CLIA [id number] [address] [id number] [address] [place] Phosphate [Mass/Vol] 3.0 mg/dL Normal 2.7-4.8 [facility] Comment on above: Order Comment: Speci men Type: BLOOD SPECIMEN Ordering Facility: [facility] Address: [address] [place] [address] Performed By: #### 2 4362-6 #### [facility] CLIA [id number] [address] [place] [address] [place] Potassium [Moles/Vol] 4.3 mmol/L Normal 3.7-5.1 [facility] Comment on above: Order Comment: Speci men Type: BLOOD SPECIMEN Ordering Facility: [facility] Address: [address] [place] [address] Performed By: #### 2 4362-6 #### [facility] CLIA [id number] [address] [place] [address] [place] Sodium [Moles/Vol] 139 mmol/L Normal 136-144 [facility] Comment on above: Order Comment: Speci men Type: BLOOD SPECIMEN Ordering Facility: [facility] Address: [address] [place] [address] Performed By: #### 2 4362-6 #### [facility] CLIA [id number] [address] [place] [address] [place] Urea nitrogen [Mass/Vol] 16 mg/dL Normal 7-21 [facility] Comment on above: Order Comment: Speci men Type: BLOOD SPECIMEN Ordering Facility: [facility] Address: [address] [place] [address] Performed By: #### 2 4362-6 #### [facility] CLIA [id number] [address] [place] [address] [place] [id number] 07-06-2024 [id number] Normal [facility] BASIC METABOLIC PANELon 12-2 Anion gap [Moles/Vol] 9 mmol/L Normal 3-13 [facility] Comment on above: Performed By: #### L AB15 ####Cannon Pinion Adjuster: VELMA VALADEZ ([id number])[facility] [place] [address] Calcium [Mass/Vol] 8.9 mg/dL Normal 8.8-10.0 [facility] Comment on above: Performed By: #### L AB15 ####Cannon Pinion Adjuster: VELMA VALADEZ ([id number])[facility] [place] [address] Chloride [Moles/Vol] 113 mmol/L High 98-107 [facility] Comment on above: Performed By: #### L AB15 ####Cannon Pinion Adjuster: VELMA VALAEDZ ([id number])[facility] [place] [address] CO2 [Moles/Vol] 18 mmol/L Low 23-31 [facility] Comment on above: Performed By: #### L AB15 ####Cannon Pinion Adjuster: VELMA VALADEZ ([id number])[facility] [place] [address] Creatinine [Mass/Vol] 0.86 mg/dL Normal 0.57-1.11 [facility] Comment on above: Performed By: #### L AB15 ####Cannon Pinion Adjuster: VELMA VALADEZ ([id number])[facility] ([facility])[address] [place] [address] [place] GLOMERULAR FILTRATION RATE ML/MIN/1.73 SQ M.PREDICTED 66.7 mL/min/1.73m*2 Normal >60.0 [facility] Comment on above: Result Comment: Calc ulation based on the Chronic Kidney Disease Epidemiology Collaboration (CKD-EPI) equation refit without adjustment for race Performed By: #### L AB15 ####Cannon Pinion Adjuster: VELMA VALADEZ ([id number])[facility] [place] [address] [place] Glucose [Mass/Vol] 74 mg/dL Low 82-115 [facility] Comment on above: Performed By: #### L AB15 ####Cannon Pinion Adjuster: VELMA VALADEZ ([id number])[facility] ([facility])[address] [place] [address] Potassium [Moles/Vol] 4.5 mmol/L Normal 3.5-5.1 [facility] Comment on above: Result Comment: [facility] potassium values may be up to 0.5 mmol/L lower than serum values. Performed By: #### L AB15 ####Cannon Pinion Adjuster: VELMA VALADEZ ([id number])[facility] ([facility])[address] [place] [address] Sodium [Moles/Vol] 140 mmol/L Normal 136-145 [facility] Comment on above: Performed By: #### L AB15 ####Cannon Pinion Adjuster: VELMA VALADEZ ([id number])[facility] ([facility])[address] [place] [address] Urea nitrogen [Mass/Vol] 16 mg/dL Normal 9-23 [facility] Comment on above: Performed By: #### L AB15 ####Cannon Pinion Adjuster: VELMA VALADEZ ([id number])[facility] ([facility])[address] [place] [address] Basic metabolic 1998 panelon 07-06-2024 Anion gap [Moles/Vol] 9 mmol/L 3 - 13 mmol/L [facility] Calcium [Mass/Vol] 8.9 mg/dL 8.8 - 10. 0 mg/dL [facility] Chloride [Moles/Vol] 113 mmol/L High 98 - 10 7 mmol/L [facility] CO2 [Moles/Vol] 18 mmol/L Low 23 - 31 mmol/L [facility] Creatinine [Mass/Vol] 0.86 mg/dL 0.57 - 1.11 mg/dL [facility] GFR/1.73 sq M.predicted (S/P/Bld) [Vol rate/Area] 66.7 mL/min - [facility] Comment on above: Calculation based on the Chronic Kidney Disease Epidemiology Collaboration (CKD-EPI) equation refit without adjustment for race Glucose [Mass/Vol] 74 mg/dL Low 82 - 115 mg/dL [facility] Interpretation and review of laboratory results Abnormal [facility] Potassium [Moles/Vol] 4.5 mmol/L 3.5 - 5.1 mmol/L [facility] Comment on above: Plasma potassium chris ues may be up to 0.5 mmol/L lower than serum values. Sodium [Moles/Vol] 140 mmol/L 136 - 145 mmol/L [facility] Urea nitrogen [Mass/Vol] 16 mg/dL 9 - 23 mg/dL [facility] CBC W Auto Differential pane l (Bld)Ordered By: Daija Doran on 07-06-2024 Basophils (Bld) [#/Vol] 0 10*3/uL 0.0 - 0.2 10*3/uL [facility] Basophils/100 WBC (Bld) 0.5 % 0.0 - 2.0 % [facility] Eosinophils (Bld) [#/Vol] 0 10*3/uL 0.0 - 0.5 10*3/uL [facility] Eosinophils/100 WBC (Bld) 0.3 % 0.0 - 6.0 % [facility] Erythrocyte distribution width (RBC) [Ratio] 17.8 % High 11.5 - 15.0 % [facility] Hematocrit (Bld) [Volume fraction] 31.8 % Low 35.0 - 47.0 % [facility] Hemoglobin (Bld) [Mass/Vol] 9.7 g/dL Low 11.7 - 16.0 g/dL [facility] Immature granulocytes (Bld) [#/Vol] 0 10*3/uL NINF - 0.1 10*3/uL [facility] Immature granulocytes/100 WBC (Bld) 0.3 % 0.0 - 2.0 % [facility] Interpretation and review of laboratory results Abnormal [facility] Lymphocytes (Bld) [#/Vol] 1.2 10*3/uL 1.0 - 4.3 10*3/uL [facility] Lymphocytes/100 WBC (Bld) 18.9 % 15.0 - 45.0 % [facility] MCH (RBC) [Entitic mass] 26.4 pg 26.0 - 34.0 pg [facility] MCHC (RBC) [Mass/Vol] 30.5 % 30.5 - 36.0 % [facility] MCV (RBC) [Entitic vol] 86.4 fL 77.0 - 99.0 fL [facility] Monocytes (Bld) [#/Vol] 0.5 10*3/uL 0.0 - 0.9 10*3/uL [facility] Monocytes/100 WBC (Bld) 8.2 % 5.0 - 13.0 % [facility] Neutrophils (Bld) [#/Vol] 4.4 10*3/uL 1.8 - 7.5 10*3/uL [facility] Neutrophils/100 WBC (Bld) 71.8 % 38.0 - 82.0 % [facility] Nucleated RBC/100 WBC (Bld) [Ratio] 0 % [facility] Platelet mean volume (Bld) [Entitic vol] 10.9 fL 9.0 - 12.7 fL [facility] Platelets (Bld) [#/Vol] 278 10*3/uL 140 - 440 10*3/uL [facility] RBC (Bld) [#/Vol] 3.68 10*6/uL Low 3.80 - 5.2 0 10*6/uL [facility] WBC (Bld) [#/Vol] 6.1 10*3/uL 3.6 - 10.7 10*3/uL [facility] CBC WITH AUTO DIFFERENTIALon 07-06-2024 Basophils (Bld) [#/Vol] 0.0 10*3/uL Normal 0.0-0.2 [facility] Comment on above: Performed By: #### L [id number] ####Cannon Pinion Adjuster: VELMA VALADEZ ([id number])[facility])[address] [place] [address] Basophils/100 WBC (Bld) 0.5 % Normal 0.0-2.0 [facility] Comment on above: Performed By: #### L [id number] ####Cannon Pinion Adjuster: VELMA VALADEZ ([id number])[facility] ([facility])[address] [place] [address] Eosinophils (Bld) [#/Vol] 0.0 10*3/uL Normal 0.0-0.5 [facility] Comment on above: Performed By: #### L [id number] ####Cannon Pinion Adjuster: VELMA [id number])[facility] ([facility] Eosinophils/100 WBC (Bld) 0.3 % Normal 0.0-6.0 [facility] Comment on above: Performed By: #### L [id number] ####Cannon Pinion Adjuster: VELMA VALADEZ ([id number])[facility])[address] [place] [address] Erythrocyte distribution width (RBC) [Ratio] 17.8 % High 11.5-15.0 [facility] Comment on above: Performed By: #### L [id number] ####Cannon Pinion Adjuster: VELMA VALADEZ ([id number])[address] Hematocrit (Bld) [Volume fraction] 31.8 % Low 35.0-47.0 [facility] Comment on above: Performed By: #### L [id number] ####Cannon Pinion Adjuster: VELMA VALADEZ ([id number])[facility])[address] [place] [address] Hemoglobin (Bld) [Mass/Vol] 9.7 g/dL Low 11.7-16.0 [facility] Comment on above: Performed By: #### L [id number] ####Cannon Pinion Adjuster: VELMA VALADEZ ([id number])[facility])[address] [place] [address] IMMATURE GRANS % 0.3 % Normal 0.0-2.0 [facility] Comment on above: Performed By: #### L [id number] ####Cannon Pinion Adjuster: VELMA VALADEZ ([id number])[facility])[address] [place] [address] IMMATURE GRANS ABSOLUTE 0.0 10*3/uL Normal <0.1 [facility] Comment on above: Performed By: #### L [id number] ####Cannon Pinion Adjuster: VELMA VALADEZ ([id number])[facility])[address] [place] [address] Lymphocytes (Bld) [#/Vol] 1.2 10*3/uL Normal 1.0-4.3 [facility] Comment on above: Performed By: #### L [id number] ####Cannon Pinion Adjuster: VELMA VALADEZ ([id number])[facility])[address] [place] [address] Lymphocytes/100 WBC (Bld) 18.9 % Normal 15.0-45.0 [facility] Comment on above: Performed By: #### L [id number] ####Cannon Pinion Adjuster: VELMA VALADEZ ([id number])[facility])[address] [place] [address] MCH (RBC) [Entitic mass] 26.4 pg Normal 26.0-34.0 [facility] Comment on above: Performed By: #### L [id number] ####Cannon Pinion Adjuster: VELMA VALADEZ ([id number])[facility])[address] [place] [address] MCHC 30.5 % Normal 30.5-36.0 [facility] Comment on above: Performed By: #### L [id number] ####Cannon Pinion Adjuster: VELMA VALADEZ ([id number])[facility])[address] [place] [address] MCV (RBC) [Entitic vol] 86.4 fL Normal 77.0-99.0 [facility] Comment on above: Performed By: #### L [id number] ####Cannon Pinion Adjuster: VELMA VALADEZ ([id number])[facility])[address] [place] [address] Monocytes (Bld) [#/Vol] 0.5 10*3/uL Normal 0.0-0.9 [facility] Comment on above: Performed By: #### L [id number] ####Cannon Pinion Adjuster: VELMA VALADEZ ([id number])[facility])[address] [place] [address] Monocytes/100 WBC (Bld) 8.2 % Normal 5.0-13.0 [facility] Comment on above: Performed By: #### L [id number] ####Cannon Pinion Adjuster: VELMA VALADEZ ([id number])[facility] ([facility])[address] [place] [address] NEUTROPHILS ABSOLUTE 4.4 10*3/uL Normal 1.8-7.5 [facility] Comment on above: Performed By: #### L [id number] ####Cannon Pinion Adjuster: VELMA VALADEZ ([id number])[facility] ([facility])[address] [place] [address] Neutrophils/100 WBC (Bld) 71.8 % Normal 38.0-82.0 [facility] Comment on above: Performed By: #### L [id number] ####Cannon Pinion Adjuster: VELMA VALADEZ ([id number])[facility])[address] [place] [address] NRBC 0.0 /100 WBCs Normal 0.0-2.0 [facility] Comment on above: Performed By: #### L [id number] ####Cannon Pinion Adjuster: VELMA VALADEZ ([id number])[facility] ([facility])[address] [place] [address] Platelet mean volume (Bld) [Entitic vol] 10.9 fL Normal 9.0-12.7 [facility] Comment on above: Performed By: #### L [id number] ####Cannon Pinion Adjuster: VELMA VALADEZ ([id number])[facility] ([facility])[address] [place] [address] Platelets (Bld) [#/Vol] 278 10*3/uL Normal 140-440 [facility] Comment on above: Performed By: #### L [id number] ####Cannon Pinion Adjuster: VELMA VALADEZ ([id number])[facility] ([facility])[address] [place] [address] RBC (Bld) [#/Vol] 3.68 10*6/uL Low 3.80-5.20 [facility] Comment on above: Performed By: #### L [id number] ####Cannon Pinion Adjuster: VELMA VALADEZ ([id number])[facility] ([facility])[address] [place] [address] WBC (Bld) [#/Vol] 6.1 10*3/uL Normal 3.6-10.7 [facility] Comment on above: Performed By: #### L [id number] ####Cannon Pinion Adjuster: VELMA VALADEZ ([id number])[facility] ([facility])[address] [place] [address] CNPNon 07-06-2024 CNPN Telephone (OPHTMN) MEL GUADARRAMA ([id number]) 1940 CHT Date Time Provider Department 07/06/24 RYAN ELIZONDO During your visit today, we recorded the following information about you: Ryan Elizondo MD 07/06/2024 2:42 PM Signed TELEPHONE ENCOUNTER 07/06/2024 Patient with recent stroke and admitted to [facility] where she was noted to have elevated IOP with retinal detachment of the right eye by consult banana expert. 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 - uldrxhyeloy-qlmsaeejw-f ilanter (TRELEGY ELLIPTA) 100-62.5-25 mcg inhalation powder [...] (CVA) due to bilateral*06/12/2024 Encounter Status:Closed by YRAN ELIZONDO on 07/06/[address] [facility]24 Consult Normal [facility] Nursing Noteon 07-06-2024 Nursing Note This RN called Protective Services to try and locate pts lost glasses from 07/05/2024. Glasses that match the description are in lost and found. Will attempt to see if glasses are a match. Normal [facility] Progress Noteon 07-06-2024 Progress Note Normal [facility] Progress Note Normal [facility] CBC (HEMOGRAM)on 07-05-2024 Erythrocyte distribution width (RBC) [Ratio] 17.2 % High 11.5-15.0 [facility] Comment on above: Performed By: #### L [id number] ####Cannon Pinion Adjuster: VELMA VALADEZ ([id number])[address] Hematocrit (Bld) [Volume fraction] 32.8 % Low 35.0-47.0 [facility] Comment on above: Performed By: #### L [id number] ####Cannon Pinion Adjuster: VELMA VALADEZ ([id number])[address] Hemoglobin (Bld) [Mass/Vol] 10.6 g/dL Low 11.7-16.0 [facility] Comment on above: Performed By: #### L [id number] ####Cannon Pinion Adjuster: VELMA VALADEZ ([id number])[address] MCH (RBC) [Entitic mass] 26.4 pg Normal 26.0-34.0 [facility] Comment on above: Performed By: #### L [id number] ####Cannon Pinion Adjuster: VELMA VALADEZ ([id number])[facility] ([facility])[address] [place] [address] MCHC 32.3 % Normal 30.5-36.0 [facility] Comment on above: Performed By: #### L [id number] ####Cannon Pinion Adjuster: VELMA VALADEZ ([id number])[facility] ([facility])[address] [place] [address] MCV (RBC) [Entitic vol] 81.8 fL Normal 77.0-99.0 [facility] Comment on above: Performed By: #### L [id number] ####Cannon Pinion Adjuster: VELMA VALADEZ ([id number])[facility])[address] [place] [address] Platelet mean volume (Bld) [Entitic vol] 9.6 fL Normal 9.0-12.7 [facility] Comment on above: Performed By: #### L [id number] ####Cannon Pinion Adjuster: VELMA VALADEZ ([id number])[facility] ([facility])[address] [place] [address] Platelets (Bld) [#/Vol] 349 10*3/uL Normal 140-440 [facility] Comment on above: Performed By: #### L [id number] ####Cannon Pinion Adjuster: VELMA VALADEZ ([id number])[facility])[address] [place] [address] RBC (Bld) [#/Vol] 4.01 10*6/uL Normal 3.80-5.20 [facility] Comment on above: Performed By: #### L [id number] ####Cannon Pinion Adjuster: VELMA VALADEZ ([id number])[facility])[address] [place] [address] WBC (Bld) [#/Vol] 5.5 10*3/uL Normal 3.6-10.7 [facility] Comment on above: Performed By: #### L [id number] ####Cannon Pinion Adjuster: VELMA VALADEZ ([id number])[facility] [place] [address] CBC panel Auto (Bld)on 07-05 Erythrocyte distribution width (RBC) [Ratio] 17.2 % High 11.5 - 15.0 % [facility] Hematocrit (Bld) [Volume fraction] 32.8 % Low 35.0 - 47.0 % [facility] Hemoglobin (Bld) [Mass/Vol] 10.6 g/dL Low 11.7 - 16.0 g/dL [facility] Interpretation and review of laboratory results Abnormal [facility] MCH (RBC) [Entitic mass] 26.4 pg 26.0 - 34.0 pg [facility] MCHC (RBC) [Mass/Vol] 32.3 % 30.5 - 36.0 % [facility] MCV (RBC) [Entitic vol] 81.8 fL 77.0 - 99.0 fL [facility] Platelet mean volume (Bld) [Entitic vol] 9.6 fL 9.0 - 12.7 fL [facility] Platelets (Bld) [#/Vol] 349 10*3/uL 140 - 440 10*3/uL [facility] RBC (Bld) [#/Vol] 4.01 10*6/uL 3.80 - 5.2 0 10*6/uL [facility] WBC (Bld) [#/Vol] 5.5 10*3/uL 3.6 - 10.7 10*3/uL [facility] COMPREHENSIVE METABOLIC PANE Gilberto 07-05-2024 Albumin [Mass/Vol] 3.6 g/dL Normal 3.4-4.8 [facility] Comment on above: Performed By: #### L [id number], LAB17 ####Cannon Pinion Adjuster: VELMA VALADEZ ([id number])[facility] ([facility])[address] [place] [address] ALP [Catalytic activity/Vol] 94 U/L Normal 40-150 [facility] Comment on above: Performed By: #### L [id number], LAB17 ####Cannon Pinion Adjuster: VELMA VALADEZ ([id number])[facility] ([facility])[address] [place] [address] ALT [Catalytic activity/Vol] 23 U/L Normal <30 [facility] Comment on above: Performed By: #### L [id number], LAB17 ####Cannon Pinion Adjuster: VELMA VALADEZ ([id number])[facility] ([facility])[address] [place] [address] Anion gap [Moles/Vol] 10 mmol/L Normal 3-13 [facility] Comment on above: Performed By: #### L [id number], LAB17 ####Cannon Pinion Adjuster: VELMA VALADEZ ([id number])[facility] ([facility])[address] [place] [address] AST [Catalytic activity/Vol] 26 U/L Normal <34 [facility] Comment on above: Performed By: #### L [id number], LAB17 ####Cannon Pinion Adjuster: VELMA VALADEZ ([id number])[facility] ([facility])[address] [place] [address] Bilirubin [Mass/Vol] 0.7 mg/dL Normal <1.2 [facility] Comment on above: Performed By: #### L [id number], LAB17 ####Cannon Pinion Adjuster: VELMA VALADEZ ([id number])[facility] ([facility])[address] [place] [address] Calcium [Mass/Vol] 9.2 mg/dL Normal 8.8-10.0 [facility] Comment on above: Performed By: #### L [id number], LAB17 ####Cannon Pinion Adjuster: VELMA VALADEZ ([id number])[facility] ([facility])[address] [place] [address] Chloride [Moles/Vol] 107 mmol/L Normal 98-107 [facility] Comment on above: Performed By: #### L [id number], LAB17 ####Cannon Pinion Adjuster: VELMA VALADEZ ([id number])[facility])[address] [place] [address] CO2 [Moles/Vol] 22 mmol/L Low 23-31 [facility] Comment on above: Performed By: #### L [id number], LAB17 ####Cannon Pinion Adjuster: VELMA VALADEZ ([id number])[facility] ([facility])[address] [place] [address] Creatinine [Mass/Vol] 0.82 mg/dL Normal 0.57-1.11 [facility] Comment on above: Performed By: #### L [id number], LAB17 ####Cannon Pinion Adjuster: VELMA VALADEZ ([id number])[facility])[address] [place] [address] GLOMERULAR FILTRATION RATE ML/MIN/1.73 SQ M.PREDICTED 70.6 mL/min/1.73m*2 Normal >60.0 [facility] Comment on above: Result Comment: Calc ulation based on the Chronic Kidney Disease Epidemiology Collaboration (CKD-EPI) equation refit without adjustment for race Performed By: #### L [id number], LAB17 ####Cannon Pinion Adjuster: VELMA VALADEZ ([id number])[facility])[address] [place] [address] Glucose [Mass/Vol] 118 mg/dL High 82-115 [facility] Comment on above: Performed By: #### L [id number], LAB17 ####Cannon Pinion Adjuster: VELMA VALADEZ ([id number])[address] Potassium [Moles/Vol] 4.3 mmol/L Normal 3.5-5.1 [facility] Comment on above: Result Comment: [facility] potassium values may be up to 0.5 mmol/L lower than serum values. Performed By: #### L [id number], LAB17 ####Cannon Pinion Adjuster: VELMA VALADEZ ([id number])[facility])[address] [place] [address] Protein [Mass/Vol] 7.0 g/dL Normal 6.4-8.3 [facility] Comment on above: Performed By: #### L [id number], LAB17 ####Cannon Pinion Adjuster: VELMA VALADEZ ([id number])[address] Sodium [Moles/Vol] 139 mmol/L Normal 136-145 [facility] Comment on above: Performed By: #### L [id number], LAB17 ####Cannon Pinion Adjuster: VELMA VALADEZ ([id number])[address] Urea nitrogen [Mass/Vol] 13 mg/dL Normal 9-23 [facility] Comment on above: Performed By: #### L [id number], LAB17 ####Cannon Pinion Adjuster: VELMA BACONSTEPHANIE ([id number])[facility] ([facility])[address] [place] [address] CT HEAD NECK ANGIO W AND WO IV CONTRASTon 07-05-2024 CT HEAD NECK ANGIO W AND WO IV CONTRAST Normal [facility] CT HEAD WO IV CONTRASTon CT HEAD WO IV CONTRAST Normal [facility] CT Head WO contraston 2023 [facility] Name: [facility]EL CARVER RD [facility] 1940 [id number] Exam Date/Time: 07/05/2024 04:36 Procedure: CT HEAD [...] of the cervica (more content not included)... [facility], Cirilo Khalil MD - 07/05/2024 Patient Name: MEL POP : 1940 [facility]#: [id number] Exam Date/Time: 07/05/2024 04:36 Procedure: CT HEAD [...] acute consolidative process (more content not included)... [facility] CT PERFUSIONon 07-05-2024 CT PERFUSION Normal [facility] CTA Head vessels and Neck ve ssels WO and W contrast Cheryl 07-05-2024 Patient Name: MEL CARVER RD : 1940 [facility]#: [id number] Exam Date/Time: 07/05/2024 04:36 Procedure: CT HEAD [...] Multilevel degenerative chopra (more content not included)... [facility] Cory, Cirilo Khalil MD - 07/05/2024 Patient Name: MEL POP : 1940 [facility]#: [id number] Exam Date/Time: 07/05/2024 04:36 Procedure: CT HEAD [...] no acute conso (more content not included)... [facility] [employer] Comprehensive metabolic 1998 panelon 07-05-2024 Albumin [Mass/Vol] 3.6 g/dL 3.4 - 4.8 g/dL [facility] [employer] ALP [Catalytic activity/Vol] 94 U/L 40 - 150 U/L [facility] ALT [Catalytic activity/Vol] 23 U/L NINF - 30 U/L [facility] Anion gap [Moles/Vol] 10 mmol/L 3 - 13 mmol/L [facility] AST [Catalytic activity/Vol] 26 U/L [facility]F - 34 U/L [facility] Bilirubin [Mass/Vol] 0.7 mg/dL NINF - 1.2 mg/dL [facility] Calcium [Mass/Vol] 9.2 mg/dL 8.8 - 10. 0 mg/dL [facility] Chloride [Moles/Vol] 107 mmol/L 98 - 10 7 mmol/L [facility] CO2 [Moles/Vol] 22 mmol/L Low 23 - 31 mmol/L [facility] Creatinine [Mass/Vol] 0.82 mg/dL 0.57 - 1.11 mg/dL [facility] GFR/1.73 sq M.predicted (S/P/Bld) [Vol rate/Area] 70.6 mL/min - PINF [facility] Comment on above: Calculation based on the Chronic Kidney Disease Epidemiology Collaboration (CKD-EPI) equation refit without adjustment for race Glucose [Mass/Vol] 118 mg/dL High 82 - 115 mg/dL [facility] Interpretation and review of laboratory results Abnormal [facility] Potassium [Moles/Vol] 4.3 mmol/L 3.5 - 5.1 mmol/L [facility] Comment on above: Plasma potassium chris ues may be up to 0.5 mmol/L lower than serum values. Protein [Mass/Vol] 7 g/dL 6.4 - 8.3 g/dL [facility] Sodium [Moles/Vol] 139 mmol/L 136 - 145 mmol/L [facility] Urea nitrogen [Mass/Vol] 13 mg/dL 9 - 23 mg/dL [facility] Consulton 07-05-2024 Consult Normal [facility] Consult Normal [facility] Consult Normal [facility] Consult Normal [facility] ECG 12-LEADon 07-05-2024 ECG 12-LEAD IMPRESSION: Atrial fibrillation Electronically Signed On 07-05-2024 12:39:21 EST by Jhonatan Hernandez [facility] ED Nursing Noteon 07-05-[address] Carlson at bedside. Normal [facility] ED Nursing Note Provider notified of patient request for pain meds. Normal [facility] ED Nursing Note Dr. Carlson at bedside [facility] ED Nursing Note Patient is returning back to room 32 at this time with Jose, Medic. Normal [facility] ED Nursing Note Pt emergently going to eye clinic. Pt being transported in wheelchair with trauma float Arin RN and Maritza RN Pt being transported on zoll monitor and acls kit. Normal [facility] ED Nursing Note Ophthalmology at bedside Normal [facility] ED Nursing Note Report to Maritza FRAGA [facility] ED Provider Noteon ED Provider Note Normal [facility] HEMOGLOBIN A1Con 07-05-2024 Glucose [Mass/Vol] 120 mg/dL Normal [facility] Comment on above: Result Comment: BUBBA Garcia COMMENTS:HbA1c values of 5.7-6.4 percent indicate an increased risk for developing diabetes mellitus. HbA1c values greater than or equal to 6.5 percent are diagnostic of diabetes mellitus. For diagnosis of diabetes in individuals without unequivocal hyperglycemia, results should be confirmed by repeat testing. Performed By: #### L AB90 ####Cannon Pinion Adjuster: VELMA VALADEZ ([id number])[address] HEMOGLOBIN A1C 5.8 %HbA1C High <5.7 [facility] Comment on above: Result Comment: Norm al less than 5.7%Prediabetes 5.7% to 6.4%Diabetes 6.5% or higher--HgbA1C levels may not be accurate in patients who have renal disease, received recent blood transfusions, are anemic, or who have dyshemoglobinemia. Performed By: #### L AB90 ####Cannon Pinion Adjuster: VELMA VALADEZ ([id number])[facility] [employer] HIGH SENSITIVITY TROPONIN, S ERIAL BASELINEon 07-05-2024 TROPONIN HIGH SENSITIVITY BASELINE 14 ng/L Normal <=14 [facility] Comment on above: Performed By: #### L [id number] ####Cannon Pinion Adjuster: VELMA VALADEZ ([id number])[facility])[address] [place] [address] HIGH SENSITIVITY TROPONIN, S ERIAL, SECOND TESTon 07-05-2024 TROPONIN HS DELTA, BASELINE TO SECOND -5 ng/L Normal <=2 [facility] Comment on above: Result Comment: This [...] further clinical guidance. Performed By: #### L [id number], LAB17 ####Cannon Pinion Adjuster: VELMA VALADEZ ([id number])[facility])[address] [place] [address] TROPONIN HS, SERIAL REFLEX, TEST TWO 9 ng/L Normal <=14 [facility] Comment on above: Performed By: #### L [id number], LAB17 ####Cannon Pinion Adjuster: VELMA VALADEZ ([id number])[address] Laboratory - Chemistry and C hemistry - challengeon 07-05-2024 Average glucose Estimated from glycated hemoglobin (Bld) [Mass/Vol] 120 mg/dL [facility] Anion gap (Bld) [Moles/Vol] 8 mmol/L 3.00 - 13.00 [facility] Calcium.ionized (Bld) [Moles/Vol] 4.5 mg/dl 4.30 - 5.20 mg/dl [facility] Comment on above: Performed by [employer] CLIA ID:[id number] [place], [place] Device: [id number] Sign Poster ID: [id number] Chloride [Moles/Vol] 108 mmol/L 98 - 11 4 mmol/L [facility] [employer] CO2 [Moles/Vol] 23 mmol/L 21 - 29 mmol/L [facility] Creatinine [Mass/Vol] 0.9 mg/dL 0.6 - 1.3 mg/dL [facility] GFR/1.73 sq M.predicted CKD-EPI (S/P/Bld) [Vol rate/Area] 63.2 [facility] Comment on above: KDIGO guidelines pro [...] 104 mg/dL High 70 - 100 mg/dL [facility] [employer] Potassium [Moles/Vol] 4.5 mmol/L 3.4 - 5.1 mmol/L [facility] [employer] Sodium [Moles/Vol] 139 mmol/L 133 - 145 mmol/L [facility] [employer] Urea (Bld) [Mass/Vol] 14 mg/dL 4 - 22 mg/dL [facility] [employer] Glucose [Mass/Vol] 104 mg/dL High 70 - 100 mg/dL [facility] [employer] Laboratory - Coagulationon 1 09-05-2023 aPTT Coag (PPP) [Time] 30.4 s 20.0 - 30.5 s [facility] INR Coag (PPP) [Relative time] 1 {INR} 0.9 - 1.1 [facility] Comment on above: Recommended Anticoag ulant [...] 11.7 s 9.0 - 1 2.0 s [facility] Laboratory - Hematology and Cell countson 07-05-2024 HbA1c (Bld) [Mass fraction] 5.8 % High [facility] Comment on above: Normal less than [...] MD Electronically Signed Date/Time: 07/05/2024 12:13 PM [facility] [employer] Patient Name: MEL CARVER RD : [...] There is artifact within the right globe. [facility] [employer] [facility] Ming Fry MD - 07/05/2024 Patient Name: MEL POP : 1940 [facility]#: [id number] Exam Date/Time: 07/05/2024 11:45 Procedure: MR BRAIN [...] Electronically Signed Date/Time: 07/05/2024 12:13 PM EST [facility] [employer] Radiology Study observation (narrative) [facility] MR Brain WO contrastOrdered By: Ming Fry on 07-05-2024 [facility] [employer] Work Phone: No Panel Informationon 07-05 Heart Rate 59 bpm [facility] [employer] P Gays 0 degrees [facility] [place] Interval 0 ms [facility] QRS Gays 37 degrees [facility] QRSD Interval 98 ms [facility] QT Interval 423 ms [facility] QTC Interval 418 ms [facility] T Wave Gays 29 degrees [facility] Atrial fibrillation Electronically Signed On 07-05-2024 12:39:21 EST by Jhonatan Hernandez CV Jhonatan Abdi MD - 07/05/2024 IMPRESSION: Atrial fibrillation Electronically Signed On 07-05-2024 12:39:21 EST by Jhonatan Hernandez [facility] Interpretation and review of laboratory results Abnormal [facility] HbA1c values of 5.7- 6.4 percent indicate an increased risk for developing diabetes mellitus. HbA1c values greater than or equal to 6.5 percent are diagnostic of diabetes mellitus. For diagnosis of diabetes in individuals without unequivocal hyperglycemia, results should be confirmed by repeat testing. [facility] Troponin HS Delta, Baseline to Second -5 ng/L NINF - 2 ng/L [facility] Comment on above: This specimen was [...] Second 9 ng/L NINF - 14 ng/L [facility] 1. No acute intracranial hemorrhage or territorial [...] Electronically Signed Date/Time: 07/05/2024 5:03 AM EST [facility] Patient Name: MEL CARVER RD : 1940 [facility]#: [id number] Exam Date/Time: 07/05/2024 04:36 Procedure: CT PERFUSION [...] the cervical spine. (more content not included)... [facility], Cirilo Khalil MD - 07/05/2024 Patient Name: MEL POP : 1940 [facility]#: [id number] Exam Date/Time: 07/05/2024 04:36 Procedure: CT PERFUSION [...] process or suspici (more content not included)... [facility] Interpretation and review of laboratory results Normal [facility] Troponin HS, Serial Baseline 14 ng/L NINF - 14 ng/L [facility] Interpretation and review of laboratory results Normal [facility] Interpretation and review of laboratory results Abnormal [facility] Performed by: [facility], [address] [place] [address] CLIA ID: [id number] [facility] Radiology Study observation (narrative) [facility] [employer] Interpretation and review of laboratory results Abnormal [facility] Performed by: [facility] [employer] [facility], [address] [facility] [address] CLIA ID: [id number] [facility] No Panel InformationOrdered By: Cirilo Ray on 07-05-2024 [employer] Work Phone: PROTIME AND APTTon aPTT Coag (Bld) [Time] 30.4 s Normal 20.0-30.5 [facility] Comment on above: Performed By: #### L [id number] ####Cannon Pinion Adjuster: VELMA VALADEZ ([id number])[facility] ([facility])[address] [place] [address] INR Coag (PPP) [Relative time] 1.0 {INR} Normal 0.9-1.1 [facility] Comment on above: Result Comment: Timothy [...] prevent Myocardial Infarction Performed By: #### [place] [id number] ####Cannon Pinion Adjuster: VELMA VALADEZ ([id number])[facility] ([facility])[address] [place] [address] PT Coag (PPP) [Time] 11.7 s Normal 9.0-12.0 [facility] Comment on above: Performed By: #### L [id number] ####Cannon Pinion Adjuster: VELMA VALADEZ ([id number])[facility] ([facility])[address] [place] [address] Progress Noteon 07-05-2024 Progress Note Normal [facility] CBC panel Auto (Bld)on 07-02 Erythrocyte distribution width (RBC) [Ratio] 16.9 % High 11.5 - 15.0 % [facility] Hematocrit (Bld) [Volume fraction] 29.6 % Low 36.0 - 46.0 % [facility] Hemoglobin (Bld) [Mass/Vol] 9.3 g/dL Low 11.5 - 15.5 g/dL [facility] Interpretation and review of laboratory results Abnormal [facility] MCH (RBC) [Entitic mass] 26.7 pg 26.0 - 34.0 pg [facility] MCHC (RBC) [Mass/Vol] 31.4 g/dL 30.5 - 36.0 g/dL [facility] MCV (RBC) [Entitic vol] 85.1 fL 80.0 - 100.0 fL [facility] Nucleated RBC (Bld) [#/Vol] NINF [facility] Platelet mean volume (Bld) [Entitic vol] 10.2 fL 9.0 - 12.7 fL [facility] Platelets (Bld) [#/Vol] 324 10*3/uL [facility] RBC (Bld) [#/Vol] 3.48 10*6/uL Low 3.90 - 5.2 0 m/uL [facility] WBC (Bld) [#/Vol] 5.12 10*3/uL [facility] Erythrocyte distribution width (RBC) [Ratio] 16.9 % High 11.5-15.0 [facility] Comment on above: Order Comment: Speci men Type: BLOOD SPECIMENOrdering Facility: [facility] Address: [address] [place] [address] Performed By: #### 5 8410-2 ####[facility] LABORATORYCLIA [id number] [address] [place] Hematocrit (Bld) [Volume fraction] 29.6 % Low 36.0-46.0 [facility] Comment on above: Order Comment: Samiri isabella Type: BLOOD SPECIMENOrdering Facility: [facility] Address: [address] [place] [address] Performed By: #### 5 8410-2 ####[facility] LABORATORYCLIA [id number] [place] [address] [place] Hemoglobin (Bld) [Mass/Vol] 9.3 g/dL Low 11.5-15.5 [facility] Comment on above: Order Comment: Speci men Type: BLOOD SPECIMENOrdering Facility: [facility] Address: [address] [place] [address] Performed By: #### 5 8410-2 ####[facility] LABORATORYCLIA [id number] [place] [address] [place] MCH (RBC) [Entitic mass] 26.7 pg Normal 26.0-34.0 [facility] Comment on above: Order Comment: Speci men Type: BLOOD SPECIMENOrdering Facility: [facility] Address: [address] [place] [address] Performed By: #### 5 8410-2 ####[facility] LABORATORYCLIA [id number] [address] MCHC (RBC) [Mass/Vol] 31.4 g/dL Normal 30.5-36.0 [facility] Comment on above: Order Comment: Speci men Type: BLOOD SPECIMENOrdering Facility: [facility] Address: [address] [place] [address] Performed By: #### 5 8410-2 ####[facility] LABORATORYCLIA [id number] [address] [place] MCV (RBC) [Entitic vol] 85.1 fL Normal 80.0-100.0 [facility] Comment on above: Order Comment: Speci men Type: BLOOD SPECIMENOrdering Facility: [facility] Address: [address] [place] [address] Performed By: #### 5 8410-2 ####[facility] LABORATORYCLIA [id number] [address] Nucleated RBC (Bld) [#/Vol] 10*3/uL Normal <0.01 [facility] Comment on above: Order Comment: Speci men Type: BLOOD SPECIMENOrdering Facility: [facility] Address: [address] [place] [address] Performed By: #### 5 8410-2 ####[facility] LABORATORYCLIA [id number] [address] Platelet mean volume (Bld) [Entitic vol] 10.2 fL Normal 9.0-12.7 [facility] Comment on above: Order Comment: Speci men Type: BLOOD SPECIMENOrdering Facility: [facility] Address: [address] [place] [address] Performed By: #### 5 8410-2 ####[facility] LABORATORYCLIA [id number] [address] Platelets (Bld) [#/Vol] 324 10*3/uL Normal 150-400 [facility] Comment on above: Order Comment: Speci men Type: BLOOD SPECIMENOrdering Facility: [facility] Address: [address] [place] [address] Performed By: #### 5 8410-2 ####[facility] LABORATORYCLIA [id number] [address] RBC (Bld) [#/Vol] 3.48 10*6/uL Low 3.90-5.20 [facility] Comment on above: Order Comment: Speci men Type: BLOOD SPECIMENOrdering Facility: [facility] Address: [address] [place] [address] Performed By: #### 5 8410-2 ####[facility] LABORATORYCLIA [id number] [address] WBC (Bld) [#/Vol] 5.12 10*3/uL Normal 3.70-11.00 [facility] Comment on above: Order Comment: Speci men Type: BLOOD SPECIMENOrdering Facility: [facility] Address: [address] [place] [address] Performed By: #### 5 8410-2 ####[facility] LABORATORYCLIA [id number] [address] CBC panel Auto (Bld)on 06-28 Erythrocyte distribution width (RBC) [Ratio] 16.6 % High 11.5 - 15.0 % [facility] Hematocrit (Bld) [Volume fraction] 28.8 % Low 36.0 - 46.0 % [facility] Hemoglobin (Bld) [Mass/Vol] 9.0 g/dL Low 11.5 - 15.5 g/dL [facility] Interpretation and review of laboratory results Abnormal [facility] MCH (RBC) [Entitic mass] 26.8 pg 26.0 - 34.0 pg [facility] MCHC (RBC) [Mass/Vol] 31.3 g/dL 30.5 - 36.0 g/dL [facility] MCV (RBC) [Entitic vol] 85.7 fL 80.0 - 100.0 fL [facility] Nucleated RBC (Bld) [#/Vol] NINF [facility] Platelet mean volume (Bld) [Entitic vol] 10.5 fL 9.0 - 12.7 fL [facility] Platelets (Bld) [#/Vol] 316 10*3/uL [facility] RBC (Bld) [#/Vol] 3.36 10*6/uL Low 3.90 - 5.2 0 m/uL [facility] WBC (Bld) [#/Vol] 5.27 10*3/uL [facility] Erythrocyte distribution width (RBC) [Ratio] 16.6 % High 11.5-15.0 [facility] Comment on above: Order Comment: Rhina mason Type: BLOOD SPECIMEN Ordering Facility: [facility] Address: [address] [place] [address] Performed By: #### 2 276-4 #### [facility] CLIA [id number] [address] [place] [address] [place] Hematocrit (Bld) [Volume fraction] 28.8 % Low 36.0-46.0 [facility] Comment on above: Order Comment: Rhina mason Type: BLOOD SPECIMEN Ordering Facility: [facility] Address: [address] [place] [address] Performed By: #### 2 276-4 #### [facility] CLIA [id number] [address] [place] [address] [place] Hemoglobin (Bld) [Mass/Vol] 9.0 g/dL Low 11.5-15.5 [facility] Comment on above: Order Comment: Rhina mason Type: BLOOD SPECIMEN Ordering Facility: [facility] Address: [address] [place] [address] Performed By: #### 2 276-4 #### [facility] CLIA [id number] [address] [place] [address] [place] MCH (RBC) [Entitic mass] 26.8 pg Normal 26.0-34.0 [facility] Comment on above: Order Comment: Speci men Type: BLOOD SPECIMEN Ordering Facility: [facility] Address: [address] [place] [address] Performed By: #### 2 276-4 #### [facility] CLIA [id number] [address] [place] MCHC (RBC) [Mass/Vol] 31.3 g/dL Normal 30.5-36.0 [facility] Comment on above: Order Comment: Speci men Type: BLOOD SPECIMEN Ordering Facility: [facility] Address: [address] [place] [address] Performed By: #### 2 276-4 #### [facility] CLIA [id number] [address] [place] [address] [place] MCV (RBC) [Entitic vol] 85.7 fL Normal 80.0-100.0 [facility] Comment on above: Order Comment: Speci men Type: BLOOD SPECIMEN Ordering Facility: [facility] Address: [address] [place] [address] Performed By: #### 2 276-4 #### [facility] CLIA [id number] [address] [place] [address] [place] Nucleated RBC (Bld) [#/Vol] 10*3/uL Normal <0.01 [facility] Comment on above: Order Comment: Speci men Type: BLOOD SPECIMEN Ordering Facility: [facility] Address: [address] [place] [address] Performed By: #### 2 276-4 #### [facility] CLIA [id number] [address] [place] [address] [place] Platelet mean volume (Bld) [Entitic vol] 10.5 fL Normal 9.0-12.7 [facility] Comment on above: Order Comment: Speci men Type: BLOOD SPECIMEN Ordering Facility: [facility] Address: [address] [place] [address] Performed By: #### 2 276-4 #### [facility] CLIA [id number] [address] [place] [address] [place] Platelets (Bld) [#/Vol] 316 10*3/uL Normal 150-400 [facility] Comment on above: Order Comment: Speci men Type: BLOOD SPECIMEN Ordering Facility: [facility] Address: [address] [place] [address] Performed By: #### 2 276-4 #### [facility] CLIA [id number] [address] [place] [address] [place] RBC (Bld) [#/Vol] 3.36 10*6/uL Low 3.90-5.20 [facility] Comment on above: Order Comment: Speci men Type: BLOOD SPECIMEN Ordering Facility: [facility] Address: [address] [place] [address] Performed By: #### 2 276-4 #### [facility] CLIA [id number] [address] [place] [address] [place] WBC (Bld) [#/Vol] 5.27 10*3/uL Normal 3.70-11.00 [facility] Comment on above: Order Comment: Speci men Type: BLOOD SPECIMEN Ordering Facility: [facility] Address: [address] [place] [address] Performed By: #### 2 276-4 #### [facility] CLIA [id number] [address] [place] [address] [place] FERRITINon 06-27-2024 Ferritin [Mass/Vol] 67.5 ng/mL 14.7 - 205.1 ng/mL [facility] Ferritin SerPl-mCncon 2023 Ferritin [Mass/Vol] 67.5 ng/mL Normal 14.7-205.1 [facility] Comment on above: Order Comment: Speci men Type: BLOOD SPECIMEN Ordering Facility: [facility] Address: [address] [place] [address] Performed By: #### 2 276-4 #### [facility] CLIA [id number] [address] [place] [address] [place] Ferritin [Mass/Vol]on 2023 Interpretation and review of laboratory results Normal [facility] Iron and Iron binding capaci ty panelon 06-27-2024 Interpretation and review of laboratory results Abnormal [facility] Iron [Mass/Vol] 30 ug/dL Low 41 - 186 ug/dL [facility] Iron binding capacity [Mass/Vol] 298 ug/dL 232 - 386 ug/dL [facility] Iron/TIBC [Molar ratio] 10.1 % Low 15.0 - 57.0 % [facility] Iron [Mass/Vol] 30 ug/dL Low 41-186 [facility] Comment on above: Order Comment: Speci men Type: BLOOD SPECIMEN Ordering Facility: [facility] Address: [address] [place] [address] Performed By: #### 2 276-4 #### [facility] CLIA [id number] [address] [place] [address] STATES [facility] Iron binding capacity [Mass/Vol] 298 ug/dL Normal 232-386 [facility] Comment on above: Order Comment: Speci men Type: BLOOD SPECIMEN Ordering Facility: [facility] Address: [address] [place] [address] Performed By: #### 2 276-4 #### [facility] CLIA [id number] [address] [place] [address] [place] Iron/TIBC [Molar ratio] 10.1 % Low 15.0-57.0 [facility] Comment on above: Order Comment: Speci men Type: BLOOD SPECIMEN Ordering Facility: [facility] Address: [address] [place] [address] Performed By: #### 2 276-4 #### [facility] CLIA [id number] [address] [place] [address] [place] CBC panel Auto (Bld)on 06-25 Erythrocyte distribution width (RBC) [Ratio] 15.9 % High 11.5 - 15.0 % [facility] Hematocrit (Bld) [Volume fraction] 28.7 % Low 36.0 - 46.0 % [facility] Hemoglobin (Bld) [Mass/Vol] 9.0 g/dL Low 11.5 - 15.5 g/dL [facility] Interpretation and review of laboratory results Abnormal [facility] MCH (RBC) [Entitic mass] 26.7 pg 26.0 - 34.0 pg [facility] MCHC (RBC) [Mass/Vol] 31.4 g/dL 30.5 - 36.0 g/dL [facility] MCV (RBC) [Entitic vol] 85.2 fL 80.0 - 100.0 fL [facility] Nucleated RBC (Bld) [#/Vol] NINF [facility] Platelet mean volume (Bld) [Entitic vol] 10.8 fL 9.0 - 12.7 fL [facility] Platelets (Bld) [#/Vol] 315 10*3/uL [facility] RBC (Bld) [#/Vol] 3.37 10*6/uL Low 3.90 - 5.2 0 m/uL [facility] WBC (Bld) [#/Vol] 4.96 10*3/uL [facility] Erythrocyte distribution width (RBC) [Ratio] 15.9 % High 11.5-15.0 [facility] Comment on above: Order Comment: Speci men Type: BLOOD SPECIMEN Ordering Facility: [facility] Address: [address] [place] [address] Performed By: #### 2 4362-6 #### [facility] CLIA [id number] [address] [place] [address] [place] Hematocrit (Bld) [Volume fraction] 28.7 % Low 36.0-46.0 [facility] Comment on above: Order Comment: Speci men Type: BLOOD SPECIMEN Ordering Facility: [facility] Address: [address] [place] [address] Performed By: #### 2 4362-6 #### [facility] CLIA [id number] [address] [place] [address] [place] Hemoglobin (Bld) [Mass/Vol] 9.0 g/dL Low 11.5-15.5 [facility] Comment on above: Order Comment: Speci men Type: BLOOD SPECIMEN Ordering Facility: [facility] Address: [address] [place] [address] Performed By: #### 2 4362-6 #### [facility] CLIA [id number] [address] [place] [address] [place] MCH (RBC) [Entitic mass] 26.7 pg Normal 26.0-34.0 [facility] Comment on above: Order Comment: Speci men Type: BLOOD SPECIMEN Ordering Facility: [facility] Address: [address] [place] [address] Performed By: #### 2 4362-6 #### [facility] CLIA [id number] [address] [place] [address] [place] MCHC (RBC) [Mass/Vol] 31.4 g/dL Normal 30.5-36.0 [facility] Comment on above: Order Comment: Speci men Type: BLOOD SPECIMEN Ordering Facility: [facility] Address: [address] [place] [address] Performed By: #### 2 4362-6 #### [facility] CLIA [id number] [address] [place] [address] [place] MCV (RBC) [Entitic vol] 85.2 fL Normal 80.0-100.0 [facility] Comment on above: Order Comment: Speci men Type: BLOOD SPECIMEN Ordering Facility: [facility] Address: [address] [place] [address] Performed By: #### 2 4362-6 #### [facility] CLIA [id number] [address] [place] [address] [place] Nucleated RBC (Bld) [#/Vol] 10*3/uL Normal <0.01 [facility] Comment on above: Order Comment: Speci men Type: BLOOD SPECIMEN Ordering Facility: [facility] Address: [address] [place] [address] Performed By: #### 2 4362-6 #### [facility] CLIA [id number] [address] [place], [place] [id number] [place] Platelet mean volume (Bld) [Entitic vol] 10.8 fL Normal 9.0-12.7 [facility] Comment on above: Order Comment: Speci men Type: BLOOD SPECIMEN Ordering Facility: [facility] Address: [address] [place] [address] Performed By: #### 2 4362-6 #### [facility] CLIA [id number] [address] [place] [address] [place] Platelets (Bld) [#/Vol] 315 10*3/uL Normal 150-400 [facility] Comment on above: Order Comment: Speci men Type: BLOOD SPECIMEN Ordering Facility: [facility] Address: [address] [place] [address] Performed By: #### 2 4362-6 #### [facility] CLIA [id number] [address] [place] [address] [place] RBC (Bld) [#/Vol] 3.37 10*6/uL Low 3.90-5.20 [facility] Comment on above: Order Comment: Speci men Type: BLOOD SPECIMEN Ordering Facility: [facility] Address: [address] [place] [address] Performed By: #### 2 4362-6 #### [facility] CLIA [id number] [address] [place] [address] [place] WBC (Bld) [#/Vol] 4.96 10*3/uL Normal 3.70-11.00 [facility] Comment on above: Order Comment: Speci men Type: BLOOD SPECIMEN Ordering Facility: [facility] Address: [address] [place] [address] Performed By: #### 2 4362-6 #### [facility] CLIA [id number] [address] [place] [address] [place] Basic metabolic 2000 panelon 06-21-2024 Anion gap [Moles/Vol] 12 mmol/L 8 - 15 mmol/L [facility] Calcium [Mass/Vol] 9.3 mg/dL 8.5 - 10. 2 mg/dL [facility] Chloride [Moles/Vol] 108 mmol/L High 98 - 10 7 mmol/L [facility] CO2 [Moles/Vol] 21 mmol/L Low 22 - 30 mmol/L [facility] Creatinine [Mass/Vol] 0.92 mg/dL 0.58 - 0.96 mg/dL [facility] GFR/1.73 sq M.predicted among non-blacks MDRD (S/P/Bld) [Vol rate/Area] 62 mL/min/{1.73_m2} - PINF [facility] Comment on above: Estimated Glomerular Filtration Rate [...] 101 mg/dL High 74 - 99 mg/dL [facility] Comment on above: The [place] [employer] (ADA) provides guidance for [...] Standards of Medical Care in Diabetes 2016, [place] [employer]. Diabetes Care. 2016.39(Suppl 1). Interpretation and review of laboratory results Abnormal [facility] Potassium [Moles/Vol] 4.6 mmol/L 3.7 - 5.1 mmol/L [facility] Sodium [Moles/Vol] 141 mmol/L 136 - 144 mmol/L [facility] Urea nitrogen [Mass/Vol] 22 mg/dL High 7 - 21 mg/dL [facility] Anion gap [Moles/Vol] 12 mmol/L Normal 8-15 [facility] Comment on above: Order Comment: Speci men Type: BLOOD SPECIMEN Ordering Facility: [facility] Address: [address] [place] [address] Performed By: #### 2 4362-6 #### [facility] CLIA [id number] [address] [place] [address] [place] Calcium [Mass/Vol] 9.3 mg/dL Normal 8.5-10.2 [facility] Comment on above: Order Comment: Speci men Type: BLOOD SPECIMEN Ordering Facility: [facility] Address: [address] [place] [address] Performed By: #### 2 4362-6 #### [facility] CLIA [id number] [address] [place] [address] [place] Chloride [Moles/Vol] 108 mmol/L High 98-107 [facility] Comment on above: Order Comment: Speci men Type: BLOOD SPECIMEN Ordering Facility: [facility] Address: [address] [place] [address] Performed By: #### 2 4362-6 #### [facility] CLIA [id number] [address] [place] [address] [place] CO2 [Moles/Vol] 21 mmol/L Low 22-30 [facility] Comment on above: Order Comment: Speci men Type: BLOOD SPECIMEN Ordering Facility: [facility] Address: [address] [place] [address] Performed By: #### 2 4362-6 #### [facility] CLIA [id number] [address] [place] [address] [place] Creatinine [Mass/Vol] 0.92 mg/dL Normal 0.58-0.96 [facility] Comment on above: Order Comment: Speci men Type: BLOOD SPECIMEN Ordering Facility: [facility] Address: [address] [place] [address] Performed By: #### 2 4362-6 #### [facility] CLIA [id number] [address] [place] [address] [place] Creatinine and Glomerular filtration rate.predicted panel (S/P/Bld) 62 mL/min/1.73m??? Normal >=60 [facility] Comment on above: Order Comment: Rhina mason Type: BLOOD SPECIMEN Ordering Facility: [facility] Address: [address] [place] [address] Result Comment: Isa mated Glomerular Filtration Rate [...] GFR. Performed By: #### 2 4362-6 #### [facility] CLIA [id number] [address] [place] [address] [place] Glucose [Mass/Vol] 101 mg/dL High 74-99 [facility] Comment on above: Order Comment: Rhina mason Type: BLOOD SPECIMEN Ordering Facility: [facility] Address: [address] [place] [address] Result Comment: The [place] Diabetes [employer] (ADA) provides guidance for cutoff [...] Standards of Medical Care in Diabetes 2016, [place] [employer]. Diabetes Care. 2016.39(Suppl 1). Performed By: #### 2 4362-6 #### [facility] CLIA [id number] [address] [place] [address] [place] Potassium [Moles/Vol] 4.6 mmol/L Normal 3.7-5.1 [facility] Comment on above: Order Comment: Speci men Type: BLOOD SPECIMEN Ordering Facility: [facility] Address: [address] [place] [address] Performed By: #### 2 4362-6 #### [facility] CLIA [id number] [address] [place] [address] [place] Sodium [Moles/Vol] 141 mmol/L Normal 136-144 [facility] Comment on above: Order Comment: Speci men Type: BLOOD SPECIMEN Ordering Facility: [facility] Address: [address] [place] [address] Performed By: #### 2 4362-6 #### [facility] CLIA [id number] [address] [place] [address] [place] Urea nitrogen [Mass/Vol] 22 mg/dL High 7-21 [facility] Comment on above: Order Comment: Speci men Type: BLOOD SPECIMEN Ordering Facility: [facility] Address: [address] [place] [address] Performed By: #### 2 4362-6 #### [facility] CLIA [id number] [address] [place] [address] [place] CBC panel Auto (Bld)on 06-21 Erythrocyte distribution width (RBC) [Ratio] 15.8 % High 11.5 - 15.0 % [facility] Hematocrit (Bld) [Volume fraction] 34.2 % Low 36.0 - 46.0 % [facility] Hemoglobin (Bld) [Mass/Vol] 10.6 g/dL Low 11.5 - 15.5 g/dL [facility] Interpretation and review of laboratory results Abnormal [facility] MCH (RBC) [Entitic mass] 26.4 pg 26.0 - 34.0 pg [facility] MCHC (RBC) [Mass/Vol] 31.0 g/dL 30.5 - 36.0 g/dL [facility] MCV (RBC) [Entitic vol] 85.3 fL 80.0 - 100.0 fL [facility] Nucleated RBC (Bld) [#/Vol] NINF [facility] Platelet mean volume (Bld) [Entitic vol] 10.7 fL 9.0 - 12.7 fL [facility] Platelets (Bld) [#/Vol] 300 10*3/uL [facility] RBC (Bld) [#/Vol] 4.01 10*6/uL 3.90 - 5.2 0 m/uL [facility] WBC (Bld) [#/Vol] 5.52 10*3/uL [facility] Erythrocyte distribution width (RBC) [Ratio] 15.8 % High 11.5-15.0 [facility] Comment on above: Order Comment: Speci men Type: BLOOD SPECIMEN Ordering Facility: [facility] Address: [address] [place] [address] Performed By: #### 2 4362-6 #### [facility] CLIA [id number] [address] [place] [address] [place] [facility] Hematocrit (Bld) [Volume fraction] 34.2 % Low 36.0-46.0 [facility] Comment on above: Order Comment: Speci men Type: BLOOD SPECIMEN Ordering Facility: [facility] Address: [address] [place] [address] Performed By: #### 2 4362-6 #### [facility] CLIA [id number] [address] [place] [address] [place] Hemoglobin (Bld) [Mass/Vol] 10.6 g/dL Low 11.5-15.5 [facility] Comment on above: Order Comment: Speci men Type: BLOOD SPECIMEN Ordering Facility: [facility] Address: [address] [place] [address] Performed By: #### 2 4362-6 #### [facility] CLIA [id number] [address] [place] [address] [place] MCH (RBC) [Entitic mass] 26.4 pg Normal 26.0-34.0 [facility] Comment on above: Order Comment: Speci men Type: BLOOD SPECIMEN Ordering Facility: [facility] Address: [address] [place] [address] Performed By: #### 2 4362-6 #### [facility] CLIA [id number] [address] [place] [address] [place] MCHC (RBC) [Mass/Vol] 31.0 g/dL Normal 30.5-36.0 [facility] Comment on above: Order Comment: Speci men Type: BLOOD SPECIMEN Ordering Facility: [facility] Address: [address] [place] [address] Performed By: #### 2 4362-6 #### [facility] CLIA [id number] [address] [place] [address] [place] MCV (RBC) [Entitic vol] 85.3 fL Normal 80.0-100.0 [facility] Comment on above: Order Comment: Speci men Type: BLOOD SPECIMEN Ordering Facility: [facility] Address: [address] [place] [address] Performed By: #### 2 4362-6 #### [facility] CLIA [id number] [address] [place] [address] [place] Nucleated RBC (Bld) [#/Vol] 10*3/uL Normal <0.01 [facility] Comment on above: Order Comment: Speci men Type: BLOOD SPECIMEN Ordering Facility: [facility] Address: [address] [place] [address] Performed By: #### 2 4362-6 #### [facility] CLIA [id number] [address] [place] [address] [place] Platelet mean volume (Bld) [Entitic vol] 10.7 fL Normal 9.0-12.7 [facility] Comment on above: Order Comment: Speci men Type: BLOOD SPECIMEN Ordering Facility: [facility] Address: [address] [place] [address] Performed By: #### 2 4362-6 #### [facility] CLIA [id number] [address] [place] [address] [place] Platelets (Bld) [#/Vol] 300 10*3/uL Normal 150-400 [facility] Comment on above: Order Comment: Speci men Type: BLOOD SPECIMEN Ordering Facility: [facility] Address: [address] [place] [address] Performed By: #### 2 4362-6 #### [facility] CLIA [id number] [address] [place] [address] [place] RBC (Bld) [#/Vol] 4.01 10*6/uL Normal 3.90-5.20 [facility] Comment on above: Order Comment: Speci men Type: BLOOD SPECIMEN Ordering Facility: [facility] Address: [address] [place] [address] Performed By: #### 2 4362-6 #### [facility] CLIA [id number] [address] [place] [address] [place] WBC (Bld) [#/Vol] 5.52 10*3/uL Normal 3.70-11.00 [facility] Comment on above: Order Comment: Speci men Type: BLOOD SPECIMEN Ordering Facility: [facility] Address: [address] [place] [address] Performed By: #### 2 4362-6 #### [facility] CLIA [id number] [address] [place] [address] [place] Basic metabolic 2000 panelon 06-19-2024 Anion gap [Moles/Vol] 10 mmol/L Normal 8-15 [facility] Comment on above: Order Comment: Speci men Type: BLOOD SPECIMEN Ordering Facility: [facility] Address: [address] [place] [address] Performed By: #### 2 4321-2, 66918-4, #### [facility] CLIA [id number] [address] [place] [address] [place] Calcium [Mass/Vol] 8.9 mg/dL Normal 8.5-10.2 [facility] Comment on above: Order Comment: Speci men Type: BLOOD SPECIMEN Ordering Facility: [facility] Address: [address] [place] [address] Performed By: #### 2 4321-2, 63797-0, #### [facility] CLIA [id number] [address] [place] [address] [place] Chloride [Moles/Vol] 109 mmol/L High 98-107 [facility] Comment on above: Order Comment: Speci men Type: BLOOD SPECIMEN Ordering Facility: [facility] Address: [address] [place] [address] Performed By: #### 2 4321-2, 09487-5, #### [facility] CLIA [id number] [address] [place] [address] [place] CO2 [Moles/Vol] 21 mmol/L Low 22-30 [facility] Comment on above: Order Comment: Speci men Type: BLOOD SPECIMEN Ordering Facility: [facility] Address: [address] [place] [address] Performed By: #### 2 4321-2, 77786-2, #### [facility] CLIA [id number] 1 [place] [address] [place] Creatinine [Mass/Vol] 1.04 mg/dL High 0.58-0.96 [facility] Comment on above: Order Comment: Speci men Type: BLOOD SPECIMEN Ordering Facility: [facility] Address: [address] [place] [address] Performed By: #### 2 4321-2, 39161-7, #### [facility] CLIA [id number] 1 [place] [address] [place] Creatinine and Glomerular filtration rate.predicted panel (S/P/Bld) 53 mL/min/1.73m??? Low >=60 [facility] Comment on above: Order Comment: Rhina mason Type: BLOOD SPECIMEN Ordering Facility: [facility] Address: [address] [place] [address] Result Comment: Isa mated Glomerular Filtration Rate [...] actual GFR. Performed By: #### 2 4321-2, 31995-9, #### [facility] CLIA [id number] 1 [place] [address] [place] Glucose [Mass/Vol] 103 mg/dL High 74-99 [facility] Comment on above: Order Comment: Rhina mason Type: BLOOD SPECIMEN Ordering Facility: [facility] Address: [address] [place] [address] Result Comment: The [place] [employer] (ADA) provides guidance for cutoff [...] Standards of Medical Care in Diabetes 2016, [place] [employer]. Diabetes Care. 2016.39(Suppl 1). Performed By: #### 2 4321-2, 45881-1, #### [facility] CLIA [id number] 1 [place] [address] [place] Potassium [Moles/Vol] 4.8 mmol/L Normal 3.7-5.1 [facility] Comment on above: Order Comment: Speci men Type: BLOOD SPECIMEN Ordering Facility: [facility] Address: [address] [place] [address] Performed By: #### 2 4321-2, 93432-8, #### [facility] CLIA [id number] [address] STATES OF [facility] Sodium [Moles/Vol] 140 mmol/L Normal 136-144 [facility] Comment on above: Order Comment: Speci men Type: BLOOD SPECIMEN Ordering Facility: [facility] Address: [address] [place] [address] Performed By: #### 2 4321-2, 03549-6, #### [facility] CLIA [id number] [address] [place] Urea nitrogen [Mass/Vol] 25 mg/dL High 7-21 [facility] Comment on above: Order Comment: Speci men Type: BLOOD SPECIMEN Ordering Facility: [facility] Address: [address] [place] [address] Performed By: #### 2 4321-2, 70388-9, #### [facility] CLIA [id number] [address] [place] CBC panel Auto (Bld)on 06-19 Erythrocyte distribution width (RBC) [Ratio] 15.9 % High 11.5-15.0 [facility] Comment on above: Order Comment: Speci men Type: BLOOD SPECIMEN Ordering Facility: [facility] Address: [address] [place] [address] Performed By: #### 2 4321-2, 67266-1, #### [facility] CLIA [id number] [address] [place] Hematocrit (Bld) [Volume fraction] 30.6 % Low 36.0-46.0 [facility] Comment on above: Order Comment: Speci men Type: BLOOD SPECIMEN Ordering Facility: [facility] Address: [address] [place] [address] Performed By: #### 2 4321-2, 50712-0, #### [facility] CLIA [id number] [address] OF [facility] Hemoglobin (Bld) [Mass/Vol] 9.5 g/dL Low 11.5-15.5 [facility] Comment on above: Order Comment: Speci men Type: BLOOD SPECIMEN Ordering Facility: [facility] Address: [address] [place] [address] Performed By: #### 2 4321-2, 63450-0, #### [facility] CLIA [id number] [address] MCH (RBC) [Entitic mass] 26.5 pg Normal 26.0-34.0 [facility] Comment on above: Order Comment: Speci men Type: BLOOD SPECIMEN Ordering Facility: [facility] Address: [address] [place] [address] Performed By: #### 2 1-2, 37222-2, #### [facility] CLIA [id number] [address] MCHC (RBC) [Mass/Vol] 31.0 g/dL Normal 30.5-36.0 [facility] Comment on above: Order Comment: Speci men Type: BLOOD SPECIMEN Ordering Facility: [facility] Address: [address] [place] [address] Performed By: #### 2 1-2, 94500-8, #### [facility] CLIA [id number] [address] OF [facility] MCV (RBC) [Entitic vol] 85.5 fL Normal 80.0-100.0 [facility] Comment on above: Order Comment: Speci men Type: BLOOD SPECIMEN Ordering Facility: [facility] Address: [address] [place] [address] Performed By: #### 2 4321-2, 96860-3, #### [facility] CLIA [id number] [address] [place] Nucleated RBC (Bld) [#/Vol] 10*3/uL Normal <0.01 [facility] Comment on above: Order Comment: Speci men Type: BLOOD SPECIMEN Ordering Facility: [facility] Address: [address] [place] [address] Performed By: #### 2 4321-2, 34085-3, #### [facility] CLIA [id number] [address] [place] Platelet mean volume (Bld) [Entitic vol] 10.4 fL Normal 9.0-12.7 [facility] Comment on above: Order Comment: Speci men Type: BLOOD SPECIMEN Ordering Facility: [facility] Address: [address] [place] [address] Performed By: #### 2 4321-2, 65852-2, #### [facility] CLIA [id number] [address] Platelets (Bld) [#/Vol] 245 10*3/uL Normal 150-400 [facility] Comment on above: Order Comment: Speci men Type: BLOOD SPECIMEN Ordering Facility: [facility] Address: [address] [place] [address] Performed By: #### 2 4321-2, 03091-8, #### [facility] CLIA [id number] [address] [place] RBC (Bld) [#/Vol] 3.58 10*6/uL Low 3.90-5.20 [facility] Comment on above: Order Comment: Speci men Type: BLOOD SPECIMEN Ordering Facility: [facility] Address: [address] [place] [address] Performed By: #### 2 4321-2, 03111-2, #### [facility] CLIA [id number] [address] [place] WBC (Bld) [#/Vol] 4.67 10*3/uL Normal 3.70-11.00 [facility] Comment on above: Order Comment: Speci men Type: BLOOD SPECIMEN Ordering Facility: [facility] Address: [facility] [place] [address] Performed By: #### 2 4321-2, 77577-5, 34748-3 #### [facility] CLIA [id number] [address] [place] [id number] [facility] CNDSon 06-19-2024 CNDS HNO ID: [id number] Author: DON EDWARDS DO Service: Hospital Medicine [...] eliquis. She was seen by therapy and [facility] facility was recommended. He slowly was improving. She was discharged to [facility] facility in stable condition. OTHER PROBLEMS/DIAGNOSIS: Principal [...] call for appointment?: Yes Jared Evans MD [phone] [address] [facility] [address] PCP Requested Referral Follow-Up Appointment When: In 2 weeks Patient/Parents to call for appointment?: Yes Hermila Padilla MD [phone] [place] [address] PCP Requested Referral Follow-Up Appointment For hydronephrosis and renal lesion When: In 2 weeks Patient/Parents to call for appointment?: Yes Mikhail Vuong Jr., MD [phone] [address] [facility] [place] [address] PCP Requested Referral Follow-Up Appointment With: neurology When: In 4 weeks Patient/Parents to call for appointment?: Yes Additional Provider to Provider Information: Treatment Team: Attending Provider: Don Edwards DO Consulting: Pratibha Logan MD Consulting: Torsten Silva MD Primary Service: BLAS ALVAREZ Transitions of Care Critical Issues: SPECIALIST FOLLOW-UP: urology, cardiology, neurology LABS AND PROCEDURES PENDING AT DISCHARGE: No pending results. FOLLOW-UP APPOINTMENTS ALREADY SCHEDULED WITH A [facility] PROVIDER: No future appointments. Discharge Information Row Name ED to Hosp-Admission (Current) from 06/10/2024 in [place] 8100 NEURO/CARD Rehab Facility Agency [facility] ALLERGIES Allergen Reactions Percocet [Oxycodone* Itching DISCHARGE MEDICA (more content not included)... Normal [facility] Basic metabolic 2000 panelon 06-18-2024 Anion gap [Moles/Vol] 10 mmol/L Normal 8-15 [facility] Comment on above: Order Comment: Speci men Type: BLOOD SPECIMEN Ordering Facility: [facility] Address: [address] [place] [address] Performed By: #### 2 4321-2, 26289-5, #### [facility] CLIA [id number] 1 [place] [address] [place] Calcium [Mass/Vol] 8.9 mg/dL Normal 8.5-10.2 [facility] Comment on above: Order Comment: Speci men Type: BLOOD SPECIMEN Ordering Facility: [facility] Address: [address] [place] [address] Performed By: #### 2 4321-2, 75246-3, #### [facility] CLIA [id number] 1 [place] [address] [place] Chloride [Moles/Vol] 110 mmol/L High 98-107 [facility] Comment on above: Order Comment: Speci men Type: BLOOD SPECIMEN Ordering Facility: [facility] Address: [address] [place] [address] Performed By: #### 2 4321-2, 19887-1, #### [facility] CLIA [id number] 1 [place] [address] [place] CO2 [Moles/Vol] 21 mmol/L Low 22-30 [facility] Comment on above: Order Comment: Speci men Type: BLOOD SPECIMEN Ordering Facility: [facility] Address: [address] [place] [address] Performed By: #### 2 4321-2, 30275-1, #### [facility] CLIA [id number] [address] STATES OF [facility] Creatinine [Mass/Vol] 0.96 mg/dL Normal 0.58-0.96 [facility] Comment on above: Order Comment: Speci men Type: BLOOD SPECIMEN Ordering Facility: [facility] Address: [address] [place] [address] Performed By: #### 2 4321-2, 03157-9, #### [facility] CLIA [id number] [address] Creatinine and Glomerular filtration rate.predicted panel (S/P/Bld) 58 mL/min/1.73m??? Low >=60 [facility] Comment on above: Order Comment: Speci men Type: BLOOD SPECIMEN Ordering Facility: [facility] Address: [address] [place] [address] Result Comment: Isa mated Glomerular Filtration Rate [...] actual GFR. Performed By: #### 2 4321-2, 95443-2, #### [facility] CLIA [id number] [address] [place] Glucose [Mass/Vol] 112 mg/dL High 74-99 [facility] Comment on above: Order Comment: Speci men Type: BLOOD SPECIMEN Ordering Facility: [facility] Address: [address] [place] [address] Result Comment: The [place] [employer] (ADA) provides guidance for cutoff [...] Standards of Medical Care in Diabetes 2016, [place] [employer]. Diabetes Care. 2016.39(Suppl 1). Performed By: #### 2 4321-2, 29584-9, #### [facility] CLIA [id number] 1 [place] [address] [place] Potassium [Moles/Vol] 4.4 mmol/L Normal 3.7-5.1 [facility] Comment on above: Order Comment: Rhina msaon Type: BLOOD SPECIMEN Ordering Facility: [facility] Address: [address] [place] [address] Performed By: #### 2 4321-2, 68154-2, #### [facility] CLIA [id number] 1 [place] [address] [place] Sodium [Moles/Vol] 141 mmol/L Normal 136-144 [facility] Comment on above: Order Comment: Rhina mason Type: BLOOD SPECIMEN Ordering Facility: [facility] Address: [address] [place] [address] Performed By: #### 2 4321-2, 42718-3, #### [facility] CLIA [id number] 1 [place] [address] [place] Urea nitrogen [Mass/Vol] 22 mg/dL High 7-21 [facility] Comment on above: Order Comment: Rhina mason Type: BLOOD SPECIMEN Ordering Facility: [facility] Address: [address] [place] [address] Performed By: #### 2 4321-2, 37672-3, #### [facility] CLIA [id number] [address] STATES OF [facility] CBC panel Auto (Bld)on 06-18 Erythrocyte distribution width (RBC) [Ratio] 15.9 % High 11.5-15.0 [facility] Comment on above: Order Comment: Speci men Type: BLOOD SPECIMENOrdering Facility: [facility] Address: [address] [place] [address] Performed By: #### 5 8410-2 ####[facility] [id number] [address] Hematocrit (Bld) [Volume fraction] 34.3 % Low 36.0-46.0 [facility] Comment on above: Order Comment: Speci men Type: BLOOD SPECIMENOrdering Facility: [facility] Address: [address] [place] [address] Performed By: #### 5 8410-2 ####[facility] [id number] [address] Hemoglobin (Bld) [Mass/Vol] 10.7 g/dL Low 11.5-15.5 [facility] Comment on above: Order Comment: Speci men Type: BLOOD SPECIMENOrdering Facility: [facility] Address: [address] [place] [address] Performed By: #### 5 8410-2 ####[facility] [id number] [address] STATES [facility] MCH (RBC) [Entitic mass] 26.7 pg Normal 26.0-34.0 [facility] Comment on above: Order Comment: Speci men Type: BLOOD SPECIMENOrdering Facility: [facility] Address: [address] [place] [address] Performed By: #### 5 8410-2 ####[facility] [id number] [address] [place] MCHC (RBC) [Mass/Vol] 31.2 g/dL Normal 30.5-36.0 [facility] Comment on above: Order Comment: Speci men Type: BLOOD SPECIMENOrdering Facility: [facility] Address: [address] [place] [address] Performed By: #### 5 8410-2 ####[facility] [id number] [address] MCV (RBC) [Entitic vol] 85.5 fL Normal 80.0-100.0 [facility] Comment on above: Order Comment: Speci men Type: BLOOD SPECIMENOrdering Facility: [facility] Address: [address] [place] [address] Performed By: #### 5 8410-2 ####[facility] [id number] [address] [place] Nucleated RBC (Bld) [#/Vol] 10*3/uL Normal <0.01 [facility] Comment on above: Order Comment: Speci men Type: BLOOD SPECIMENOrdering Facility: [facility] Address: [address] [place] [address] Performed By: #### 5 8410-2 ####[facility] [id number] [address] Platelet mean volume (Bld) [Entitic vol] 10.0 fL Normal 9.0-12.7 [facility] Comment on above: Order Comment: Speci men Type: BLOOD SPECIMENOrdering Facility: [facility] Address: [address] [place] [address] Performed By: #### 5 8410-2 ####[facility]CLIA [id number] [address] OF [facility] Platelets (Bld) [#/Vol] 273 10*3/uL Normal 150-400 [facility] Comment on above: Order Comment: Speci men Type: BLOOD SPECIMENOrdering Facility: [facility] Address: [address] [place] [address] Performed By: #### 5 8410-2 ####[facility]ORYCLIA [id number] [place] [address] [place] RBC (Bld) [#/Vol] 4.01 10*6/uL Normal 3.90-5.20 [facility] Comment on above: Order Comment: Speci men Type: BLOOD SPECIMENOrdering Facility: [facility] Address: [address] [place] [address] Performed By: #### 5 8410-2 ####[facility]ORYCLIA [id number] [place] [address] [place] WBC (Bld) [#/Vol] 5.29 10*3/uL Normal 3.70-11.00 [facility] Comment on above: Order Comment: Speci men Type: BLOOD SPECIMENOrdering Facility: [facility] Address: [address] [place] [address] Performed By: #### 5 8410-2 ####[facility]IA [id number] [address] OF [facility] Hepatic function 2000 panelo n 06-18-2024 Albumin [Mass/Vol] 3.5 g/dL Low 3.9-4.9 [facility] Comment on above: Order Comment: Speci men Type: BLOOD SPECIMEN Ordering Facility: [facility] Address: [address] [place] [address] Performed By: #### 2 4321-2, 85157-0, 87986-1 #### [facility] CLIA [id number] [address] [place] ALP [Catalytic activity/Vol] 80 U/L Normal 34-123 [facility] Comment on above: Order Comment: Speci men Type: BLOOD SPECIMEN Ordering Facility: [facility] Address: [address] [place] [address] Performed By: #### 2 4321-2, 36700-8, 43934-4 #### [facility] CLIA [id number] [address] [place] ALT With P-5'-P [Catalytic activity/Vol] 16 U/L Normal 7-38 [facility] Comment on above: Order Comment: Speci men Type: BLOOD SPECIMEN Ordering Facility: [facility] Address: [address] [place] [address] Performed By: #### 2 4321-2, 36857-7, #### [facility] CLIA [id number] [address] AST With P-5'-P [Catalytic activity/Vol] 20 U/L Normal 13-35 [facility] Comment on above: Order Comment: Speci men Type: BLOOD SPECIMEN Ordering Facility: [facility] Address: [address] [place] [address] Performed By: #### 2 4321-2, 49773-2, #### [facility] CLIA [id number] [address] [place] Bilirubin [Mass/Vol] 0.3 mg/dL Normal 0.2-1.3 [facility] Comment on above: Order Comment: Speci men Type: BLOOD SPECIMEN Ordering Facility: [facility] Address: [address] [place] [address] Performed By: #### 2 1-2, 88604-5, #### [facility] CLIA [id number] [address] Bilirubin.conjugated [Mass/Vol] mg/dL Normal <0.2 [facility] Comment on above: Order Comment: Speci men Type: BLOOD SPECIMEN Ordering Facility: [facility] Address: [address] [place] [address] Performed By: #### 2 4321-2, 64809-2, #### [facility] CLIA [id number] [address] [place] Protein [Mass/Vol] 6.0 g/dL Low 6.3-8.0 [facility] Comment on above: Order Comment: Speci men Type: BLOOD SPECIMEN Ordering Facility: [facility] Address: [address] [place] [address] Performed By: #### 2 4321-2, 24371-4, #### [facility] CLIA [id number] [address] [place] Magnesium SerPl-mCncon 06-18 Magnesium [Mass/Vol] 1.9 mg/dL Normal 1.7-2.3 [facility] Comment on above: Order Comment: Speci men Type: BLOOD SPECIMEN Ordering Facility: [facility] Address: [address] [place] [address] Performed By: #### 2 4321-2, 04137-4, 84575-8 #### [facility] CLIA [id number] [address] [place] NUTRITIONon 06-18-2024 NUTRITION HNO ID: [id number] Author: N[address]SON [address] Service: Nutrition Therapy [...] Obtained From: Patient Weight Change: 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; 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) MNT Billing: $ Initial Assessment: 1-15 minutes SIGNATURE: Nelson [address] PATIENT NAME: Mel Castillo DATE: June 18, 2024 TIME: 11:18 AM Normal [facility] THERAPY NTon 06-18-2024 THERAPY NT HNO ID: [id number] Author: SELENA BARR, PT Service: Physical Therapy Author Type: Physical Therapist Type: Therapy (PT/OT/Speech/Resp) Filed: 06/18/2024 12:53 Note Text: Physical Therapy Treatment Summary SERVICE DATE: 06/18/2024 SERVICE TIME: 1056 to 1129 ROOM: [place] [address] PT 6 Clicks Score: 16 DISCHARGE RECOMMENDATIONS [...] Lack of coordination-other TREATMENT INTERVENTIONS Therapeutic Activity (46420) Therapeutic Activity (15576) Treatment Minutes: 25 $ Therapeutic Activity (14371) Billed Units: 2 units Timed Code Treatment [...] Balance, Non-func (more content not included)... Normal [facility] THERAPY NT HNO ID: [id number] Author: JEFFERSON, ULI, OTR/L Service: Occupational Therapy Author Type: Occupational Therapist Type: Therapy (PT/OT/Speech/Resp) Filed: 06/18/2024 13:34 Note Text: Occupational Therapy Treatment Summary SERVICE DATE: 06/18/2024 SERVICE TIME: 1130 to 1154 ROOM: [id number] OT 6 Clicks Score: 15 DISCHARGE RECOMMENDATIONS [...] General symptoms and signs-other TREATMENT INTERVENTIONS Self Mcc Management (50579), Cognitive Training (95956 and 55923) Timed Code Treatment (minutes): 24 Skilled Treatment Time (minutes): 24 Self Mcc Management (00443) Treatment Minutes: 11 $ Self Mcc Management (12719) Billed Units: 1 unit Minimal assist with meal set-up. Cueing for physical assist with maintaining functional grasp on packaging to tear open. Pt demonstrated impaired hand-eye coordination/visual spatial awareness with bringing food to mouth. Provided further cueing and tactile awareness/sequencing to maximize ease with self feeding. Cognitive Training First 15 Minutes (38193) : 13 $ Cognitive Training First 15 Minutes (77483) Billed Units: 1 unit Facilitated completion of [facility] Mental Examination (UMS) to screen performance with [...] Occupational Therapy, Safety/Judgment, Sitting Balance to Improve [place] with ADLs/Self-Care, Cognitive Skills, Command Following, Expected Functional Level, Feeding Tasks, Low Vision Strategies, Positioning, Visual Scanning/Attention Activities THERAPEUTIC SKILLS USED Activity Dosing, Cues for (more content not included)... Normal [facility] CBC panel Auto (Bld)on 06-17 Erythrocyte distribution width (RBC) [Ratio] 15.7 % High 11.5-15.0 [facility] Comment on above: Order Comment: Speci men Type: BLOOD SPECIMEN Ordering Facility: [facility] Address: [address] [place] [address] Performed By: #### 2 4321-2, 53747-0, #### [facility] CLIA [id number] [address] STATES OF [facility] Hematocrit (Bld) [Volume fraction] 35.1 % Low 36.0-46.0 [facility] Comment on above: Order Comment: Speci men Type: BLOOD SPECIMEN Ordering Facility: [facility] Address: [address] [place] [address] Performed By: #### 2 4321-2, 67128-4, #### [facility] CLIA [id number] [address] [place] Hemoglobin (Bld) [Mass/Vol] 11.0 g/dL Low 11.5-15.5 [facility] Comment on above: Order Comment: Speci men Type: BLOOD SPECIMEN Ordering [facility]: [facility] Address: [address] [place] [address] Performed By: #### 2 4321-2, 45298-4, #### [facility] CLIA [id number] [address] [place] [address] [place] MCH (RBC) [Entitic mass] 26.4 pg Normal 26.0-34.0 [facility] Comment on above: Order Comment: Speci men Type: BLOOD SPECIMEN Ordering Facility: [facility] Address: [address] [place] [address] Performed By: #### 2 4321-2, 62519-6, #### [facility] CLIA [id number] [address] [place] MCHC (RBC) [Mass/Vol] 31.3 g/dL Normal 30.5-36.0 [facility] Comment on above: Order Comment: Speci men Type: BLOOD SPECIMEN Ordering Facility: [facility] Address: [address] [place] [address] Performed By: #### 2 4321-2, 26725-0, #### [employer] [facility] CLIA [id number] [address] [place] MCV (RBC) [Entitic vol] 84.4 fL Normal 80.0-100.0 [facility] Comment on above: Order Comment: Speci men Type: BLOOD SPECIMEN Ordering Facility: [facility] Address: [address] [place] [address] Performed By: #### 2 1-2, 11785-8, #### [facility] CLIA [id number] [address] [place] Nucleated RBC (Bld) [#/Vol] 10*3/uL Normal <0.01 [facility] Comment on above: Order Comment: Speci men Type: BLOOD SPECIMEN Ordering Facility: [facility] Address: [address] [place] [address] Performed By: #### 2 1-2, 81661-5, #### [facility] CLIA [id number] [address] [place] Platelet mean volume (Bld) [Entitic vol] 10.1 fL Normal 9.0-12.7 [facility] Comment on above: Order Comment: Speci men Type: BLOOD SPECIMEN Ordering Facility: [facility] Address: [address] [place] [address] Performed By: #### 2 4321-2, 08721-6, #### [facility] CLIA [id number] 1 [place] [address] [facility] [place] Platelets (Bld) [#/Vol] 294 10*3/uL Normal 150-400 [facility] Comment on above: Order Comment: Speci men Type: BLOOD SPECIMEN Ordering Facility: [facility] Address: [address] [place] [address] Performed By: #### 2 4321-2, 47385-4, #### [facility] CLIA [id number] [address] STATES OF [facility] RBC (Bld) [#/Vol] 4.16 10*6/uL Normal 3.90-5.20 [facility] Comment on above: Order Comment: Speci men Type: BLOOD SPECIMEN Ordering Facility: [facility] Address: [address] [place] [address] Performed By: #### 2 4321-2, 94197-3, #### [facility] CLIA [id number] [address] OF [facility] WBC (Bld) [#/Vol] 5.63 10*3/uL Normal 3.70-11.00 [facility] Comment on above: Order Comment: Speci men Type: BLOOD SPECIMEN Ordering Facility: [facility] Address: [address] [place] [address] Performed By: #### 2 4321-2, 60368-0, #### [facility] CLIA [id number] [address] CBC panel Auto (Bld)on 06-16 Erythrocyte distribution width (RBC) [Ratio] 15.4 % High 11.5-15.0 [facility] Comment on above: Order Comment: Speci men Type: BLOOD SPECIMEN Ordering Facility: [facility] Address: [address] [place] [address] Performed By: #### 2 4321-2, 83012-7, #### [facility] CLIA [id number] [address] Hematocrit (Bld) [Volume fraction] 34.9 % Low 36.0-46.0 [facility] Comment on above: Order Comment: Speci men Type: BLOOD SPECIMEN Ordering Facility: [facility] Address: [address] [place] [address] Performed By: #### 2 4321-2, 77397-2, #### [facility] CLIA [id number] [address] STATES OF [facility] Hemoglobin (Bld) [Mass/Vol] 10.9 g/dL Low 11.5-15.5 [facility] Comment on above: Order Comment: Speci men Type: BLOOD SPECIMEN Ordering Facility: [facility] Address: [address] [place] [address] Performed By: #### 2 4321-2, 08402-2, #### [facility] CLIA [id number] [address] MCH (RBC) [Entitic mass] 26.4 pg Normal 26.0-34.0 [facility] Comment on above: Order Comment: Speci men Type: BLOOD SPECIMEN Ordering Facility: [facility] Address: [address] [place] [address] Performed By: #### 2 4320-2, 09975-9, #### [facility] CLIA [id number] [address] MCHC (RBC) [Mass/Vol] 31.2 g/dL Normal 30.5-36.0 [facility] Comment on above: Order Comment: Speci men Type: BLOOD SPECIMEN Ordering Facility: [facility] Address: [address] [place] [address] Performed By: #### 2 4321-2, 39488-7, #### [facility] CLIA [id number] [address] MCV (RBC) [Entitic vol] 84.5 fL Normal 80.0-100.0 [facility] Comment on above: Order Comment: Speci men Type: BLOOD SPECIMEN Ordering Facility: [facility] Address: [address] [place] [address] Performed By: #### 2 4321-2, 30561-7, #### [facility] CLIA [id number] [address] [place] [address] [place] Nucleated RBC (Bld) [#/Vol] 10*3/uL Normal <0.01 [facility] Comment on above: Order Comment: Speci men Type: BLOOD SPECIMEN Ordering Facility: [facility] Address: [address] [place] [address] Performed By: #### 2 4321-2, 53881-1, #### [facility] CLIA [id number] 1 [place] [address] [place] Platelet mean volume (Bld) [Entitic vol] 9.8 fL Normal 9.0-12.7 [facility] Comment on above: Order Comment: Speci men Type: BLOOD SPECIMEN Ordering Facility: [facility] Address: [address] [place] [address] Performed By: #### 2 4321-2, 59290-4, #### [facility] CLIA [id number] [address] [place] Platelets (Bld) [#/Vol] 274 10*3/uL Normal 150-400 [facility] Comment on above: Order Comment: Speci men Type: BLOOD SPECIMEN Ordering Facility: [facility] Address: [address] [place] [address] Performed By: #### 2 4321-2, 93510-8, #### [facility] CLIA [id number] [address] [place] RBC (Bld) [#/Vol] 4.13 10*6/uL Normal 3.90-5.20 [facility] Comment on above: Order Comment: Speci men Type: BLOOD SPECIMEN Ordering Facility: [facility] Address: [address] [place] [address] Performed By: #### 2 4321-2, 30132-3, #### [facility] CLIA [id number] 1 [place] [address] [place] WBC (Bld) [#/Vol] 6.06 10*3/uL Normal 3.70-11.00 [facility] Comment on above: Order Comment: Speci men Type: BLOOD SPECIMEN Ordering Facility: [facility] Address: [address] [place] [address] Performed By: #### 2 1-2, 00480-7, #### [employer] [facility] CLIA [id number] [address] OF [facility] CBC panel Auto (Bld)on 06-15 Erythrocyte distribution width (RBC) [Ratio] 15.4 % High 11.5-15.0 [facility] Comment on above: Order Comment: Speci men Type: BLOOD SPECIMEN Ordering Facility: [facility] Address: [address] [place] [address] Performed By: #### 2 4321-2, 08497-5, #### [facility] CLIA [id number] [address] Hematocrit (Bld) [Volume fraction] 33.9 % Low 36.0-46.0 [facility] Comment on above: Order Comment: Speci men Type: BLOOD SPECIMEN Ordering Facility: [facility] Address: [address] [place] [address] Performed By: #### 2 1-2, 62899-8, #### [employer] [facility] CLIA [id number] [address] OF [facility] Hemoglobin (Bld) [Mass/Vol] 10.6 g/dL Low 11.5-15.5 [facility] Comment on above: Order Comment: Speci men Type: BLOOD SPECIMEN Ordering Facility: [facility] Address: [address] [place] [address] Performed By: #### 2 4321-2, 70441-2, #### [facility] CLIA [id number] [address] MCH (RBC) [Entitic mass] 26.2 pg Normal 26.0-34.0 [facility] Comment on above: Order Comment: Speci men Type: BLOOD SPECIMEN Ordering Facility: [facility] Address: [address] [place] [address] Performed By: #### 2 4321-2, 39795-1, #### [facility] CLIA [id number] [address] MCHC (RBC) [Mass/Vol] 31.3 g/dL Normal 30.5-36.0 [facility] Comment on above: Order Comment: Speci men Type: BLOOD SPECIMEN Ordering Facility: [facility] Address: [address] [place] [address] Performed By: #### 2 4321-2, 53859-0, #### [facility] CLIA [id number] [address] MCV (RBC) [Entitic vol] 83.9 fL Normal 80.0-100.0 [facility] Comment on above: Order Comment: Speci men Type: BLOOD SPECIMEN Ordering Facility: [facility] Address: [address] [place] [address] Performed By: #### 2 4321-2, 59471-4, #### [facility] CLIA [id number] [address] Nucleated RBC (Bld) [#/Vol] 10*3/uL Normal <0.01 [facility] Comment on above: Order Comment: Speci men Type: BLOOD SPECIMEN Ordering Facility: [facility] Address: [address] [place] [address] Performed By: #### 2 4321-2, 34776-6, #### [facility] CLIA [id number] [address] Platelet mean volume (Bld) [Entitic vol] 9.9 fL Normal 9.0-12.7 [facility] Comment on above: Order Comment: Speci men Type: BLOOD SPECIMEN Ordering Facility: [facility] Address: [address] [place] [address] Performed By: #### 2 4321-2, 61961-5, #### [facility] CLIA [id number] [address] [place] Platelets (Bld) [#/Vol] 280 10*3/uL Normal 150-400 [facility] Comment on above: Order Comment: Speci men Type: BLOOD SPECIMEN Ordering Facility: [facility] Address: [address] [place] [address] Performed By: #### 2 4321-2, 98593-4, #### [facility] CLIA [id number] [address] [place] RBC (Bld) [#/Vol] 4.04 10*6/uL Normal 3.90-5.20 [facility] Comment on above: Order Comment: Speci men Type: BLOOD SPECIMEN Ordering Facility: [facility] Address: [address] [place] [address] Performed By: #### 2 4321-2, 65421-7, #### [facility] CLIA [id number] [address] OF [facility] WBC (Bld) [#/Vol] 5.80 10*3/uL Normal 3.70-11.00 [facility] Comment on above: Order Comment: Speci men Type: BLOOD SPECIMEN Ordering Facility: [facility] Address: [address] [place] [address] Performed By: #### 2 4321-2, 21582-9, #### [facility] CLIA [id number] [address] [place] THERAPY NTon 06-15-2024 THERAPY NT HNO ID: [id number] Author: MEHREEN MANCERA, PT Service: Physical Therapy Author Type: Physical Therapist Type: Therapy (PT/OT/Speech/Resp) Filed: 06/15/2024 16:13 Note Text: Physical Therapy Treatment Summary SERVICE DATE: 06/15/2024 SERVICE TIME: 1518 to 1547 ROOM: [place] [address] PT 6 Clicks Score: 13 DISCHARGE RECOMMENDATIONS [...] Lack of coordination-other TREATMENT INTERVENTIONS Therapeutic Activity (16981), Neuromuscular Reeducation (12844) Timed Code Treatment (minutes): 29 Skilled Treatment Time (minutes): 29 Therapeutic Activity (83899) Treatment Minutes: 10 $ Therapeutic Activity (00186) Billed Units: 1 unit Neuromuscular Reeducation (80166) Treatment Minutes: 19 $ Neuromuscular Reeducation (48780) Billed Units: 1 unit Sitting balance and [...] to control (more content not included)... Normal [facility] CBC panel Auto (Bld)on 06-14 Erythrocyte distribution width (RBC) [Ratio] 15.5 % High 11.5-15.0 [facility] Comment on above: Order Comment: Speci men Type: BLOOD SPECIMENOrdering Facility: [facility] Address: [address] [place] [address] Performed By: #### 5 8410-2 ####[facility] [id number] [address] Hematocrit (Bld) [Volume fraction] 34.8 % Low 36.0-46.0 [facility] Comment on above: Order Comment: Speci men Type: BLOOD SPECIMENOrdering Facility: [facility] Address: [address] [place] [address] Performed By: #### 5 8410-2 ####[facility] [id number] [address] OF [facility] Hemoglobin (Bld) [Mass/Vol] 11.0 g/dL Low 11.5-15.5 [facility] Comment on above: Order Comment: Speci men Type: BLOOD SPECIMENOrdering Facility: [facility] Address: [address] [place] [address] Performed By: #### 5 8410-2 ####[facility] [id number] [address] MCH (RBC) [Entitic mass] 26.6 pg Normal 26.0-34.0 [facility] Comment on above: Order Comment: Speci men Type: BLOOD SPECIMENOrdering Facility: [facility] Address: [address] [place] [address] Performed By: #### 5 8410-2 ####[facility] [id number] [address] [place] MCHC (RBC) [Mass/Vol] 31.6 g/dL Normal 30.5-36.0 [facility] Comment on above: Order Comment: Speci men Type: BLOOD SPECIMENOrdering Facility: [facility] Address: [address] [place] [address] Performed By: #### 5 8410-2 ####[facility] [id number] [address] MCV (RBC) [Entitic vol] 84.3 fL Normal 80.0-100.0 [facility] Comment on above: Order Comment: Speci men Type: BLOOD SPECIMENOrdering Facility: [facility] Address: [address] [place] [address] Performed By: #### 5 8410-2 ####[facility] [id number] [address] [place] Nucleated RBC (Bld) [#/Vol] 10*3/uL Normal <0.01 [facility] Comment on above: Order Comment: Speci men Type: BLOOD SPECIMENOrdering Facility: [facility] Address: [address] [place] [address] Performed By: #### 5 8410-2 ####[facility]CLIA [id number] [place] [address] [place] Platelet mean volume (Bld) [Entitic vol] 9.7 fL Normal 9.0-12.7 [facility] Comment on above: Order Comment: Speci men Type: BLOOD SPECIMENOrdering Facility: [facility] Address: [address] [place] [address] Performed By: #### 5 8410-2 ####[facility] [id number] [address] [place] Platelets (Bld) [#/Vol] 278 10*3/uL Normal 150-400 [facility] Comment on above: Order Comment: Speci men Type: BLOOD SPECIMENOrdering Facility: [facility] Address: [address] [place] [address] Performed By: #### 5 8410-2 ####[facility]CLIA [id number] [place] [address] [place] RBC (Bld) [#/Vol] 4.13 10*6/uL Normal 3.90-5.20 [facility] Comment on above: Order Comment: Speci men Type: BLOOD SPECIMENOrdering Facility: [facility] [facility] Address: [address] [place] [address] Performed By: #### 5 8410-2 ####[facility]ORYCLIA [id number] [place] [address] [place] WBC (Bld) [#/Vol] 4.70 10*3/uL Normal 3.70-11.00 [facility] Comment on above: Order Comment: Speci men Type: BLOOD SPECIMENOrdering Facility: [facility] Address: [address] [place] [id number] Performed By: #### 5 8410-2 ####[facility]ORYCLIA [id number] [place] [id number] [facility] [place] NURSING PROGon 06-14-2024 NURSING PROG HNO ID: [id number] Author: JOSE JERNIGAN, RN Service: Nursing Author [...] - ordered XR and lidocaine patch Normal [facility] XR SHLDR >/=3V AP/JASON [...] portions of the right lung are clear. Physician President: DEVEN Transcribe Date/Time: Jun 14 2024 1:33P Dictated by : DEV WELCH MD This examination was interpreted and the report reviewed and electronically signed by: DEV WELCH MD on Jun 14 2024 1:35PM EST [id number] Normal [facility] ALLIED HEALTHon 06-13-2024 ALLIED HEALTH HNO ID: [id number] Author: ALFRED DALEY Chaplain Service: ? Author Type: Type: Allied Health Filed: 06/13/2024 14:38 Note Text: SPIRITUAL CARE ASSESSMENT SERVICE DATE: 06/13/2024 SERVICE TIME: 11:53 Visit with: Patient Length of visit (minutes): 5 Scientologist / Spirituality: Pt did not Disc. Reason: [...] TIME: 2:31 PM PAGER/CONTACT #: [phone] Normal [facility] Basic metabolic 2000 panelon 06-13-2024 Anion gap [Moles/Vol] 11 mmol/L Normal 8-15 [facility] Comment on above: Order Comment: Speci men Type: BLOOD SPECIMEN [facility] Address: [address] [place] [address] Performed By: #### 2 4321-2, 42110-4, #### [facility] CLIA [id number] 1 [place] [address] [place] Calcium [Mass/Vol] 8.9 mg/dL Normal 8.5-10.2 [facility] Comment on above: Order Comment: Speci men Type: BLOOD SPECIMEN Ordering Facility: [facility] Address: [address] [place] [address] Performed By: #### 2 4321-2, 31747-9, #### [facility] CLIA [id number] 1 [place] [address] [place] Chloride [Moles/Vol] 101 mmol/L Normal 98-107 [facility] Comment on above: Order Comment: Speci men Type: BLOOD SPECIMEN Ordering Facility: [facility] Address: [address] [place] [address] Performed By: #### 2 4321-2, 41294-8, #### [facility] CLIA [id number] [address] [place] CO2 [Moles/Vol] 24 mmol/L Normal 22-30 [facility] Comment on above: Order Comment: Speci men Type: BLOOD SPECIMEN Ordering Facility: [facility] Address: [address] [place] [address] Performed By: #### 2 4321-2, 73828-5, #### [facility] CLIA [id number] [address] [place] Creatinine [Mass/Vol] 1.04 mg/dL High 0.58-0.96 [facility] Comment on above: Order Comment: Speci men Type: BLOOD SPECIMEN Ordering Facility: [facility] Address: [address] [place] [address] Performed By: #### 2 4321-2, 84115-8, #### [facility] CLIA [id number] [address] Creatinine and Glomerular filtration rate.predicted panel (S/P/Bld) 53 mL/min/1.73m??? Low >=60 [facility] Comment on above: Order Comment: Speci men Type: BLOOD SPECIMEN Ordering Facility: [facility] Address: [address] [place] [address] Result Comment: Isa mated Glomerular Filtration Rate [...] actual GFR. Performed By: #### 2 4321-2, 17135-6, #### [facility] CLIA [id number] [address] [place] [address] [place] Glucose [Mass/Vol] 95 mg/dL Normal 74-99 [facility] Comment on above: Order Comment: Rhina mason Type: BLOOD SPECIMEN Order[facility] Facility: [facility] Address: [address] [place] [address] Result Comment: The [place] [employer] (ADA) provides guidance for cutoff [...] Standards of Medical Care in Diabetes 2016, [place] [employer]. Diabetes Care. 2016.39(Suppl 1). Performed By: #### 2 4321-2, 78150-0, #### [facility] CLIA [id number] [address] [place] [address] [place] Potassium [Moles/Vol] 3.8 mmol/L Normal 3.7-5.1 [facility] Comment on above: Order Comment: Rhina mason Type: BLOOD SPECIMEN [facility] Facility: [facility] Address: [address] [place] [address] Performed By: #### 2 4321-2, 90889-1, #### [facility] CLIA [id number] 1 [place] [address] [place] Sodium [Moles/Vol] 136 mmol/L Normal 136-144 [facility] Comment on above: Order Comment: Rhina mason Type: BLOOD SPECIMEN [facility]ing Facility: [facility] Address: [address] [place] [address] Performed By: #### 2 4321-2, 46865-8, #### [facility] CLIA [id number] [address] [place] [address] [place] Urea nitrogen [Mass/Vol] 16 mg/dL Normal 7-21 [facility] Comment on above: Order Comment: Speci men Type: BLOOD SPECIMEN [facility]ing [facility]: [facility] Address: [address] [place] [address] Performed By: #### 2 4321-2, 55641-7, 50338-3 #### [facility] CLIA [id number] [address] STATES OF [facility] CBC panel Auto (Bld)on 06-13 Erythrocyte distribution width (RBC) [Ratio] 15.5 % High 11.5-15.0 [facility] Comment on above: Order Comment: Speci men Type: BLOOD SPECIMENOrdering Facility: [facility] [facility] Address: [address] [place] [address] Performed By: #### 5 8410-2 ####[facility]ORYCLIA [id number] [address] [place] Hematocrit (Bld) [Volume fraction] 33.1 % Low 36.0-46.0 [facility] Comment on above: Order Comment: Speci men Type: BLOOD SPECIMENOrdering Facility: [facility] [facility] Address: [address] [place] [address] Performed By: #### 5 8410-2 ####[facility]ORYCL[facility] [id number] [address] [place] Hemoglobin (Bld) [Mass/Vol] 10.2 g/dL Low 11.5-15.5 [facility] Comment on above: Order Comment: Speci men Type: BLOOD SPECIMENOrdering Facility: [facility] [facility] Address: [address] [place] [address] Performed By: #### 5 8410-2 ####[facility]ORYCLIA [id number] [address] [place] MCH (RBC) [Entitic mass] 26.5 pg Normal 26.0-34.0 [facility] Comment on above: Order Comment: Speci men Type: BLOOD SPECIMENOrdering Facility: [facility] Address: [address] [place] [address] Performed By: #### 5 8410-2 ####[facility] LABORATORYCLIA [id number] [address] MCHC (RBC) [Mass/Vol] 30.8 g/dL Normal 30.5-36.0 [facility] Comment on above: Order Comment: Speci men Type: BLOOD SPECIMENOrdering Facility: [facility] Address: [address] [place] [address] Performed By: #### 5 8410-2 ####[facility] LABORATORYCLIA [id number] [address] [place] MCV (RBC) [Entitic vol] 86.0 fL Normal 80.0-100.0 [facility] Comment on above: Order Comment: Speci men Type: BLOOD SPECIMENOrdering Facility: [facility] Address: [address] [place] [address] Performed By: #### 5 8410-2 ####[facility] LABORATORYCLIA [id number] [address] OF [facility] Nucleated RBC (Bld) [#/Vol] 10*3/uL Normal <0.01 [facility] Comment on above: Order Comment: Speci men Type: BLOOD SPECIMENOrdering Facility: [facility] Address: [address] [place] [address] Performed By: #### 5 8410-2 ####[facility] LABORATORYCLIA [id number] [address] STATES OF [facility] Platelet mean volume (Bld) [Entitic vol] 9.6 fL Normal 9.0-12.7 [facility] Comment on above: Order Comment: Speci men Type: BLOOD SPECIMENOrdering Facility: [facility] Address: [address] [place] [address] Performed By: #### 5 8410-2 ####[facility] LABORATORYCLIA [id number] [address] [place] Platelets (Bld) [#/Vol] 287 10*3/uL Normal 150-400 [facility] Comment on above: Order Comment: Speci men Type: BLOOD SPECIMENOrdering Facility: [facility] Address: [address] [place] [address] Performed By: #### 5 8410-2 ####[facility] LABORATORYCLIA [id number] [place] [address] [place] RBC (Bld) [#/Vol] 3.85 10*6/uL Low 3.90-5.20 [facility] Comment on above: Order Comment: Speci men Type: BLOOD SPECIMENOrdering Facility: [facility] Address: [address] [place] [address] Performed By: #### 5 8410-2 ####[facility] LABORATORYCLIA [id number] [address] STATES OF [facility] WBC (Bld) [#/Vol] 4.79 10*3/uL Normal 3.70-11.00 [facility] Comment on above: Order Comment: Speci men Type: BLOOD SPECIMENOrdering Facility: [facility] Address: [address] [place] [address] Performed By: #### 5 8410-2 ####[facility] LABORATORYCLIA [id number] [place] [address] [place] aPTT PPPon 06-13-2024 aPTT Coag (PPP) [Time] 51.3 s High 23.0-32.4 [facility] Comment on above: Order Comment: Speci men Type: BLOOD SPECIMEN [facility] Address: [address] [place] [address] Performed By: #### 2 4321-2, 13339-7, 95117-4 #### [facility] CLIA [id number] [address] aPTT Coag (PPP) [Time] 89.0 s High 23.0-32.4 [facility] Comment on above: Order Comment: Speci men Type: BLOOD SPECIMEN [facility] Address: [address] [place] [address] Performed By: #### 2 4321-2, 42052-7, #### [facility] CLIA [id number] [address] OF [facility] ALLIED HEALTHon 06-12-2024 ALLIED HEALTH HNO ID: [id number] Author: HELLEN SEVILLA RT(R) Service: Radiology Author [...] PATIENT PRESENTS WITH AN IMPLANTABLE OR ATTACHED PORT SURVEYOR: No RADIOLOGY DEPARTMENT: CT; Exam(s) Completed: Brain PERIPHERAL IV DATA: Not applicable SIGNED BY: RT Reji(R) June 12, 2024 9:13 AM Normal [facility] CBC W Auto Differential pane l (Bld)on 06-12-2024 Basophils (Bld) [#/Vol] 0.03 10*3/uL Normal <0.11 [facility] Comment on above: Order Comment: Speci men Type: BLOOD SPECIMEN [facility] Address: [address] [place] [address] Performed By: #### 2 4321-2, 19648-4, #### [facility] CLIA [id number] [address] Basophils/100 WBC (Bld) 0.6 % Normal A [facility] Comment on above: Order Comment: Speci men Type: BLOOD SPECIMEN [facility] Address: [address] [place] [address] Performed By: #### 2 4321-2, 37358-5, #### [facility] CLIA [id number] [address] Differential cell count method Nom (Bld) Auto Normal [facility] Comment on above: Order Comment: Speci men Type: BLOOD SPECIMEN [facility] Address: [address] [place] [address] Performed By: #### 2 4321-2, 79821-2, #### [facility] CLIA [id number] [address] OF [facility] Eosinophils (Bld) [#/Vol] 0.05 10*3/uL Normal <0.46 [facility] Comment on above: Order Comment: Speci men Type: BLOOD SPECIMEN [facility] Address: [address] [place] [address] Performed By: #### 2 4320-2, 01599-0, #### [facility] CLIA [id number] [address] Eosinophils/100 WBC (Bld) 1.0 % Normal [facility] Comment on above: Order Comment: Speci men Type: BLOOD SPECIMEN [facility] Address: [address] [place] [address] Performed By: #### 2 1-2, 34666-7, #### [facility] CLIA [id number] [address] [place] [address] [place] Erythrocyte distribution width (RBC) [Ratio] 15.6 % High 11.5-15.0 [facility] Comment on above: Order Comment: Speci men Type: BLOOD SPECIMEN [facility] Address: [address] [place] [address] Performed By: #### 2 4321-2, 95438-3, #### [facility] CLIA [id number] [address] [place] Hematocrit (Bld) [Volume fraction] 34.6 % Low 36.0-46.0 [facility] Comment on above: Order Comment: Speci men Type: BLOOD SPECIMEN [facility] Address: [address] [place] [address] Performed By: #### 2 4321-2, 86837-2, #### [facility] CLIA [id number] [address] [place] Hemoglobin (Bld) [Mass/Vol] 10.6 g/dL Low 11.5-15.5 [facility] Comment on above: Order Comment: Speci men Type: BLOOD SPECIMEN [facility] Address: [address] [place] [address] Performed By: #### 2 4321-2, 32006-8, #### [facility] CLIA [id number] [address] [place] Immature granulocytes (Bld) [#/Vol] 10*3/uL Normal <0.10 [facility] Comment on above: Order Comment: Speci men Type: BLOOD SPECIMEN [facility] Address: [address] [place] [address] Performed By: #### 2 1-2, 33936-6, #### [facility] CLIA [id number] [address] [place] Immature granulocytes/100 WBC (Bld) 0.2 % Normal [facility] Comment on above: Order Comment: Speci men Type: BLOOD SPECIMEN [facility] Address: [address] [place] [address] Performed By: #### 2 1-2, 39588-4, #### [facility] CLIA [id number] 1 [place] [address] [place] Lymphocytes (Bld) [#/Vol] 1.65 10*3/uL Normal 1.00-4.00 [facility] Comment on above: Order Comment: Speci men Type: BLOOD SPECIMEN [facility] Address: [address] [place] [address] Performed By: #### 2 4321-2, 25290-8, #### [facility] CLIA [id number] [address] Lymphocytes/100 WBC (Bld) 31.9 % Normal [facility] Comment on above: Order Comment: Speci men Type: BLOOD SPECIMEN [facility] Address: [address] [place] [address] Performed By: #### 2 4321-2, 69720-8, #### [facility] CLIA [id number] [address] OF [facility] MCH (RBC) [Entitic mass] 26.2 pg Normal 26.0-34.0 [facility] Comment on above: Order Comment: Speci men Type: BLOOD SPECIMEN [facility] Address: [address] [place] [address] Performed By: #### 2 4320-2, 38142-4, #### [facility] CLIA [id number] [address] MCHC (RBC) [Mass/Vol] 30.6 g/dL Normal 30.5-36.0 [facility] Comment on above: Order Comment: Speci men Type: BLOOD SPECIMEN [facility] Address: [address] [place] [address] Performed By: #### 2 1-2, 10510-4, #### [facility] CLIA [id number] [address] STATES OF [facility] MCV (RBC) [Entitic vol] 85.6 fL Normal 80.0-100.0 [facility] Comment on above: Order Comment: Speci men Type: BLOOD SPECIMEN [facility] Address: [address] [place] [address] Performed By: #### 2 4321-2, 97384-5, #### [facility] CLIA [id number] 1 [place] [address] [place] Monocytes (Bld) [#/Vol] 0.46 10*3/uL Normal <0.87 [facility] Comment on above: Order Comment: Speci men Type: BLOOD SPECIMEN [facility] Address: [address] [place] [address] Performed By: #### 2 4321-2, 77830-0, #### [facility] CLIA [id number] [address] [place] Monocytes/100 WBC (Bld) 8.9 % Normal [facility] Comment on above: Order Comment: Speci men Type: BLOOD SPECIMEN [facility] Address: [address] [place] [address] Performed By: #### 2 4321-2, 02598-5, #### [facility] CLIA [id number] [address] [place] Neutrophils (Bld) [#/Vol] 2.97 10*3/uL Normal 1.45-7.50 [facility] Comment on above: Order Comment: Speci men Type: BLOOD SPECIMEN [facility] Address: [address] [place] [address] Performed By: #### 2 4321-2, 17233-3, #### [facility] CLIA [id number] 1 [place] [address] [place] Neutrophils/100 WBC (Bld) 57.4 % Normal [facility] Comment on above: Order Comment: Speci men Type: BLOOD SPECIMEN [facility] Address: [address] [place] [address] Performed By: #### 2 4321-2, 42636-9, #### [facility] CLIA [id number] 1 [place] [address] [place] Nucleated RBC (Bld) [#/Vol] 10*3/uL Normal <0.01 [facility] Comment on above: Order Comment: Speci men Type: BLOOD SPECIMEN [facility] Address: [address] [place] [address] Performed By: #### 2 4321-2, 50737-1, #### [facility] CLIA [id number] [address] [place] Nucleated RBC/100 WBC (Bld) [Ratio] 0.0 /100 WBC Normal [facility] Comment on above: Order Comment: Speci men Type: BLOOD SPECIMEN [facility] Address: [address] [place] [address] Performed By: #### 2 4321-2, 57502-4, #### [facility] CLIA [id number] [address] [place] Platelet mean volume (Bld) [Entitic vol] 9.6 fL Normal 9.0-12.7 [facility] Comment on above: Order Comment: Speci men Type: BLOOD SPECIMEN [facility] Address: [address] [place] [address] Performed By: #### 2 4321-2, 24215-8, #### [facility] CLIA [id number] [address] [place] Platelets (Bld) [#/Vol] 314 10*3/uL Normal 150-400 [facility] Comment on above: Order Comment: Speci men Type: BLOOD SPECIMEN [facility] Address: [address] [place] [address] Performed By: #### 2 4321-2, 13025-4, #### [facility] CLIA [id number] 1 [place] [address] [place] RBC (Bld) [#/Vol] 4.04 10*6/uL Normal 3.90-5.20 [facility] Comment on above: Order Comment: Speci men Type: BLOOD SPECIMEN [facility] Address: [address] [place] [address] Performed By: #### 2 4321-2, 66320-2, #### [facility] CLIA [id number] 1 [place] [address] [place] WBC (Bld) [#/Vol] 5.17 10*3/uL Normal 3.70-11.00 [facility] Comment on above: Order Comment: Speci men Type: BLOOD SPECIMEN [facility] Address: [address] [place] [address] Performed By: #### 2 4321-2, 61527-7, #### [facility] CLIA [id number] 1 [place] [address] [facility] CONSULTon 06-12-2024 CONSULT HNO ID: [id number] Author: MINA TALBERT MD Service: Cardiovascular Disease Author Type: Physician Type: Consults Filed: 06/12/2024 10:40 Note Text: CARDIOLOGY CONSULTATION- [facility] Patient Name: Mel Castillo : 1940 PRIMARY CARE PHYSICIAN: Jared Evans MD [address] [place] [address] REFERRING PHYSICIAN No referring provider defined for [...] presumptive 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[facility] with history of prior stroke PAD [...] the hospital a few months ago at [facility] she was taking her Eliquis and was [...] BEDTIME Don Edwards DO 80 mg at 06/11/24 213 acetaminophen 650 mg tab(s) (TYLENOL) 650 mg [...] PRN Don Edwards DO 4 mg at 06/11/241944 heparin iv infusion 25,000 units in NaCl 0.45% 250 mL STROKE NOMOGRAM 0-3,000 Units/hr INTRAVENOUS CONTINUOUS Don Edwards DO 11 mL/hr at 06/12/24 0442 1,100 Units/hr at 06/12/24 044 Review of Systems Constitutional: Positive for malaise/fatigue. [...] Orthostatic Pulse (more content not included)... Normal [facility] CONSULT PROGon 06-12-2024 CONSULT PROG HNO ID: [id number] Author: NICOLAS TESFAYE APRN.SHAMIKA Service: Neurology General Author Type: Nurse Practitioner [...] Score: 1 (06/12/24 0945 : Nicolas Tesfaye APRN.SKILLED LABORER) 1 MENTAL STATUS: Alert, oriented to person, [...] and Prevention (personally reviewed by Nicolas Tesfaye APRN.SKILLED LABORER): Daily Rounding Date: 06/12/24 Daily Rounding Time: 4586 PROBLEM LIST: Principal Problem: Dizziness (POA: Unknown) [...] hospital problems. * Impression/Recommendati ons IMPRESSION Mel Serna Sh (more content not included)... Normal [facility] CT BRAIN WO IVCONon 06-12-20 CT BRAIN WO IVCON * * *Final Report* * * DATE OF EXAM: Jun 12 2024 9:25AM [facility] 0504 - CT BRAIN WO IVCON / [...] intracranial hemorrhage. Chronic changes, as detailed above. Physician President: DEVEN Transcribe Date/Time: Jun 12 2024 9:42A Dictated by : LYDIA EVANS MD This examination was interpreted and the report reviewed and electronically signed by: LYDIA EVANS MD on Jun 12 2024 9:47AM EST [id number] Normal [facility] Comprehensive metabolic 2000 panelon 06-12-2024 Albumin [Mass/Vol] 3.6 g/dL Low 3.9-4.9 [facility] Comment on above: Order Comment: Speci men Type: BLOOD SPECIMEN [facility] Address: [address] [place] [address] Performed By: #### 2 4321-2, 93403-2, #### [facility] CLIA [id number] [address] STATES OF [facility] ALP [Catalytic activity/Vol] 88 U/L Normal 34-123 [facility] Comment on above: Order Comment: Speci men Type: BLOOD SPECIMEN [facility] Address: [address] [place] [address] Performed By: #### 2 4321-2, 19682-1, #### [facility] CLIA [id number] [address] [place] OF [facility] ALT With P-5'-P [Catalytic activity/Vol] 6 U/L Low 7-38 [facility] Comment on above: Order Comment: Speci men Type: BLOOD SPECIMEN [facility] Address: [address] [place] [address] Performed By: #### 2 4321-2, 31413-6, #### [facility] CLIA [id number] [address] STATES OF [facility] Anion gap [Moles/Vol] 13 mmol/L Normal 8-15 [facility] Comment on above: Order Comment: Speci men Type: BLOOD SPECIMEN [facility] Address: [address] [place] [address] Performed By: #### 2 4321-2, 31679-4, #### [facility] CLIA [id number] [address] [place] AST With P-5'-P [Catalytic activity/Vol] 9 U/L Low 13-35 [facility] Comment on above: Order Comment: Speci men Type: BLOOD SPECIMEN [facility] Address: [address] [place] [address] Performed By: #### 2 4321-2, 37264-3, #### [facility] CLIA [id number] 1 [place] [address] [place] Bilirubin [Mass/Vol] 0.6 mg/dL Normal 0.2-1.3 [facility] Comment on above: Order Comment: Speci men Type: BLOOD SPECIMEN [facility] Address: [address] [place] [address] Performed By: #### 2 4321-2, 91359-2, #### [facility] CLIA [id number] [address] [place] Calcium [Mass/Vol] 9.2 mg/dL Normal 8.5-10.2 [facility] Comment on above: Order Comment: Speci men Type: BLOOD SPECIMEN [facility] Address: [address] [place] [address] Performed By: #### 2 1-2, 72628-0, #### [facility] CLIA [id number] 1 [place] [address] [place] Chloride [Moles/Vol] 101 mmol/L Normal 98-107 [facility] Comment on above: Order Comment: Speci men Type: BLOOD SPECIMEN [facility] Address: [address] [place] [address] Performed By: #### 2 4321-2, 27493-7, #### [facility] CLIA [id number] 1 [place] [address] [place] CO2 [Moles/Vol] 23 mmol/L Normal 22-30 [facility] Comment on above: Order Comment: Speci men Type: BLOOD SPECIMEN [facility] Address: [address] [place] [address] Performed By: #### 2 4321-2, 14790-4, #### [facility] CLIA [id number] [address] [place] [id number] [place] OF [facility] Creatinine [Mass/Vol] 1.02 mg/dL High 0.58-0.96 [facility] Comment on above: Order Comment: Speci men Type: BLOOD SPECIMEN [facility] Address: [address] [place] [address] Performed By: #### 2 4321-2, 59651-4, #### [facility] CLIA [id number] [address] Creatinine and Glomerular filtration rate.predicted panel (S/P/Bld) 54 mL/min/1.73m??? Low >=60 [facility] Comment on above: Order Comment: [facility] Type: BLOOD SPECIMEN [facility] Address: [address] [place] [address] Result Comment: Isa mated Glomerular Filtration Rate [...] actual GFR. Performed By: #### 2 4321-2, 46916-2, #### [facility] CLIA [id number] [address] [place] Glucose [Mass/Vol] 109 mg/dL High 74-99 [facility] Comment on above: Order Comment: Speci men Type: BLOOD SPECIMEN [facility] Address: [address] [place], [place] [id number] Result Comment: The [place] [employer] (ADA) provides guidance for cutoff [...] Standards of Medical Care in Diabetes 2016, [place] [employer]. Diabetes Care. 2016.39(Suppl 1). Performed By: #### 2 4321-2, 65371-7, #### [facility] CLIA [id number] 1 [place] [address] [place] Potassium [Moles/Vol] 4.0 mmol/L Normal 3.7-5.1 [facility] Comment on above: Order Comment: Rhina mason Type: BLOOD SPECIMEN [facility] Address: [address] [place] [address] Performed By: #### 2 4321-2, 17838-5, #### [facility] CLIA [id number] 1 [place] [address] [place] Protein [Mass/Vol] 6.4 g/dL Normal 6.3-8.0 [facility] Comment on above: Order Comment: Rhina mason Type: BLOOD SPECIMEN [facility] Address: [address] [place] [address] Performed By: #### 2 4321-2, 35337-9, #### [facility] CLIA [id number] 1 [place] [address] [place] Sodium [Moles/Vol] 137 mmol/L Normal 136-144 [facility] Comment on above: Order Comment: Samiri men Type: BLOOD SPECIMEN [facility] Address: [address] [place] [address] Performed By: #### 2 4321-2, 18142-4, #### [facility] CLIA [id number] 1 [place] [address] [place] Urea nitrogen [Mass/Vol] 12 mg/dL Normal 7-21 [facility] Comment on above: Order Comment: Specrobson men Type: BLOOD SPECIMEN [facility] Address: [address] [place] [id number] Performed By: #### 2 4321-2, 34313-2, #### [facility] CLIA [id number] [address] [place] [id number] [facility] Magnesium SerPl-mCncon 06-12 Magnesium [Mass/Vol] 2.3 mg/dL Normal 1.7-2.3 [facility] Comment on above: Order Comment: Rhina mason Type: BLOOD SPECIMEN [facility] Address: [address] [place] [id number] Performed By: #### 2 4321-2, 62168-1, #### [facility] CLIA [id number] [address] NURSING PROGon 06-12-2024 NURSING PROG HNO ID: [id number] Author: ROBINSON VELÁSQUEZ, RN Service: ? Author [...] Next PTT draw due at 1900 Normal [facility] PT EDon 06-12-2024 PT ED HNO ID: [id number] Author: DOT PETERSON tim Service: Pharmacy Author Type: ? Type: Patient Education Filed: 06/12/2024 16:17 Note Text: Attestation signed by Dot Peterson [facility] at 06/12/2024 4:17 PM I have [...] questions. Patient aware of copay. Nayana Rowan, Assistant Operator Normal [facility] THERAPY NTon 06-12-2024 THERAPY NT HNO ID: [id number] Author: LATOYA LONG PT Service: Physical Therapy Author Type: Physical Therapist Type: Therapy (PT/OT/Speech/Resp) Filed: 06/12/2024 15:33 Note Text: Physical Therapy Treatment Summary SERVICE DATE: 06/12/2024 SERVICE TIME: 1445 to 1509 ROOM: [place] [address] PT 6 Clicks Score: 13 DISCHARGE RECOMMENDATIONS [...] Lack of coordination-other TREATMENT INTERVENTIONS Therapeutic Activity (01591), Neuromuscular Reeducation (75357) Timed Code Treatment (minutes): 23 Skilled Treatment Time (minutes): 23 Therapeutic Activity (22354) Treatment Minutes: 10 $ Therapeutic Activity (56198) Billed Units: 1 unit Training and assist with bed mobility, transfers and taking steps in place and side steps along the EOB with the walker. Neuromuscular Reeducation (84161) Treatment Minutes: 13 $ Neuromuscular Reeducation (68810) Billed Units: 1 unit Instructed pt in [...] position andrea (more content not included)... Normal [facility] THERAPY NT HNO ID: [id number] Author: SAMI WEINBERG OTR/[place] Service: Occupational Therapy Author Type: Occupational Therapist Type: Therapy (PT/OT/Speech/Resp) Filed: 06/12/2024 08:50 Note Text: Occupational Therapy Evaluation Summary SERVICE DATE: 06/12/2024 SERVICE TIME: 810 ROOM: [id number] OT 6 Clicks Score: 15 DISCHARGE RECOMMENDATIONS [...] and signs-other TREATMENT INTERVENTIONS Evaluation, Therapeutic Activity (16961) Timed Code Treatment (minutes): 8 Skilled Treatment Time (minutes): 23 $ Evaluation - Moderate (23418) Billed Units: 1 unit Therapeutic Activity (83074) Treatment Minutes: 8 $ Therapeutic Activity (28550) Billed Units: 1 unit TRAINING AND EDUCATION PROVIDED Assistive Device Use, Bed Mobility, Benefits of In-Hospital Mobility, Cognitive Stimulation Activities, Discharge Planning, Disease Specific Education, Role of Occupational Therapy, Safety/Judgment, Sitting Balance to Improve [place] with ADLs/Self-Care THERAPEUTIC SKILLS USED Activity Dosing, [...] Stand By (more content not included)... Normal [facility] aPTT PPPon 06-12-2024 aPTT Coag (PPP) [Time] 56.1 s High 23.0-32.4 [facility] Comment on above: Order Comment: Speci men Type: BLOOD SPECIMEN Ordering Facility: [facility] Address: [address] [place] [address] Performed By: #### 2 4321-2, 80618-5, 28194-7 #### [facility] CLIA [id number] [address] OF [facility] aPTT Coag (PPP) [Time] 79.0 s High 23.0-32.4 [facility] Comment on above: Order Comment: Speci men Type: BLOOD SPECIMEN Ordering Facility: [facility] Address: [address] [place] [address] Performed By: #### 1 4979-9 #### [facility] CLIA [id number] [address] aPTT Coag (PPP) [Time] 123.9 s High 23.0-32.4 [facility] Comment on above: Order Comment: Speci men Type: BLOOD SPECIMEN Ordering Facility: [facility] Address: [address] [place] [address] Performed By: #### 2 4321-2, 58998-4, 96264-7 #### [facility] CLIA [id number] [address] aPTT Coag (PPP) [Time] 117.3 s High 23.0-32.4 [facility] Comment on above: Order Comment: Speci men Type: BLOOD SPECIMEN Ordering Facility: [facility] Address: [address] [place] [address] Performed By: #### 2 4321-2, 02670-0, 43767-9 #### [facility] CLIA [id number] [address] 06-11-[address] [place] [address] 06-11-2024 ALLIED [facility]ALTH HNO ID: [id number] Author: FABIO KERR Tech Service: ? Author Type: Victim Advocate Type: Allied Health Filed: 06/11/2024 14:16 Note [...] PATIENT PRESENTS WITH AN IMPLANTABLE OR ATTACHED PORT SURVEYOR: No RADIOLOGY DEPARTMENT: MR; Exam(s) Completed: Head: Routine Brain [place] MRA MRA Carotid PERIPHERAL IV DATA: Not applicable SIGNED BY: Anne Marie Carrillo June 11, 2024 2:15 PM Normal [facility] CBC W Auto Differential pane l (Bld)on 06-11-2024 Basophils (Bld) [#/Vol] 0.03 10*3/uL Normal <0.11 [facility] Comment on above: Order Comment: Speci men Type: BLOOD SPECIMEN Ordering Facility: [facility] Address: [address] [place] [address] Performed By: #### 2 4321-2, 51466-8, #### [facility] CLIA [id number] 1 [place] [address] [place] Basophils/100 WBC (Bld) 0.4 % Normal A [facility] Comment on above: Order Comment: Speci men Type: BLOOD SPECIMEN Ordering Facility: [facility] Address: [address] [place] [address] Performed By: #### 2 4321-2, 12435-4, #### [facility] CLIA [id number] [address] [place] Differential cell count method Nom (Bld) Auto Normal [facility] Comment on above: Order Comment: Speci men Type: BLOOD SPECIMEN Ordering Facility: [facility] Address: [address] [place] [address] Performed By: #### 2 4321-2, 99798-9, #### [facility] CLIA [id number] 1 [place] [address] [place] Eosinophils (Bld) [#/Vol] 10*3/uL Normal <0.46 [facility] Comment on above: Order Comment: Speci men Type: BLOOD SPECIMEN Ordering Facility: [facility] Address: [address] [place] [address] Performed By: #### 2 4321-2, 04563-6, #### [facility] CLIA [id number] [address] Eosinophils/100 WBC (Bld) 0.3 % Normal [facility] Comment on above: Order Comment: Speci men Type: BLOOD SPECIMEN Ordering Facility: [facility] Address: [address] [place] [address] Performed By: #### 2 1-2, 59954-5, #### [facility] CLIA [id number] [address] [place] Erythrocyte distribution width (RBC) [Ratio] 15.6 % High 11.5-15.0 [facility] Comment on above: Order Comment: Speci men Type: BLOOD SPECIMEN Ordering Facility: [facility] Address: [address] [place] [address] Performed By: #### 2 4321-2, 84476-9, #### [facility] CLIA [id number] [address] [place] Hematocrit (Bld) [Volume fraction] 37.6 % Normal 36.0-46.0 [facility] Comment on above: Order Comment: Speci men Type: BLOOD SPECIMEN Ordering Facility: [facility] Address: [address] [place] [address] Performed By: #### 2 4321-2, 40096-0, #### [facility] CLIA [id number] [address] [place] Hemoglobin (Bld) [Mass/Vol] 11.5 g/dL Normal 11.5-15.5 [facility] Comment on above: Order Comment: Speci men Type: BLOOD SPECIMEN Ordering Facility: [facility] Address: [address] [place] [address] Performed By: #### 2 4321-2, 48333-3, #### [facility] CLIA [id number] [address] [place] Immature granulocytes (Bld) [#/Vol] 0.03 10*3/uL Normal <0.10 [facility] Comment on above: Order Comment: Speci men Type: BLOOD SPECIMEN Ordering Facility: [facility] Address: [address] [place] [address] Performed By: #### 2 4321-2, 36924-5, #### [facility] CLIA [id number] [address] Immature granulocytes/100 WBC (Bld) 0.4 % Normal [facility] Comment on above: Order Comment: Speci men Type: BLOOD SPECIMEN Ordering Facility: [facility] Address: [address] [place] [address] Performed By: #### 2 1-2, 91774-3, #### [facility] CLIA [id number] [address] [place] Lymphocytes (Bld) [#/Vol] 1.26 10*3/uL Normal 1.00-4.00 [facility] Comment on above: Order Comment: Speci men Type: BLOOD SPECIMEN Ordering Facility: [facility] Address: [address] [place] [address] Performed By: #### 2 1-2, 97753-5, #### [facility] CLIA [id number] [address] Lymphocytes/100 WBC (Bld) 16.9 % Normal [facility] Comment on above: Order Comment: Speci men Type: BLOOD SPECIMEN Ordering Facility: [facility] Address: [address] [place] [address] Performed By: #### 2 4321-2, 61650-1, #### [facility] CLIA [id number] [address] [place] MCH (RBC) [Entitic mass] 26.6 pg Normal 26.0-34.0 [facility] Comment on above: Order Comment: Speci men Type: BLOOD SPECIMEN Ordering Facility: [facility] Address: [address] [place] [address] Performed By: #### 2 4321-2, 55917-8, #### [facility] CLIA [id number] [address] MCHC (RBC) [Mass/Vol] 30.6 g/dL Normal 30.5-36.0 [facility] Comment on above: Order Comment: Speci men Type: BLOOD SPECIMEN Ordering Facility: [facility] Address: [address] [place] [address] Performed By: #### 2 4321-2, 33542-1, #### [facility] CLIA [id number] [address] MCV (RBC) [Entitic vol] 87.0 fL Normal 80.0-100.0 A [facility] Comment on above: Order Comment: Speci men Type: BLOOD SPECIMEN Ordering Facility: [facility] Address: [address] [place] [address] Performed By: #### 2 4321-2, 94191-0, #### [facility] CLIA [id number] [address] Monocytes (Bld) [#/Vol] 0.68 10*3/uL Normal <0.87 [facility] Comment on above: Order Comment: Speci men Type: BLOOD SPECIMEN Ordering Facility: [facility] Address: [address] [place] [address] Performed By: #### 2 4321-2, 12329-9, #### [facility] CLIA [id number] [address] Monocytes/100 WBC (Bld) 9.1 % Normal A [facility] Comment on above: Order Comment: Speci men Type: BLOOD SPECIMEN Ordering Facility: [facility] Address: [address] [place] [address] Performed By: #### 2 4321-2, 13380-1, #### [facility] CLIA [id number] [address] [place] Neutrophils (Bld) [#/Vol] 5.43 10*3/uL Normal 1.45-7.50 [facility] Comment on above: Order Comment: Speci men Type: BLOOD SPECIMEN Ordering Facility: [facility] Address: [address] [place] [address] Performed By: #### 2 4321-2, 15266-5, #### [facility] CLIA [id number] [address] [place] Neutrophils/100 WBC (Bld) 72.9 % Normal [facility] Comment on above: Order Comment: Speci men Type: BLOOD SPECIMEN Ordering Facility: [facility] Address: [address] [place] [address] Performed By: #### 2 1-2, 55308-0, #### [facility] CLIA [id number] 1 [place] [address] [place] Nucleated RBC (Bld) [#/Vol] 10*3/uL Normal <0.01 [facility] Comment on above: Order Comment: Speci men Type: BLOOD SPECIMEN Ordering Facility: [facility] Address: [address] [place] [address] Performed By: #### 2 4321-2, 69874-3, #### [facility] CLIA [id number] 1 [place] [address] [place] Nucleated RBC/100 WBC (Bld) [Ratio] 0.0 /100 WBC Normal [facility] Comment on above: Order Comment: Speci men Type: BLOOD SPECIMEN Ordering Facility: [facility] Address: [address] [place] [address] Performed By: #### 2 4321-2, 04589-9, #### [facility] CLIA [id number] 1 [place] [address] [place] Platelet mean volume (Bld) [Entitic vol] 9.5 fL Normal 9.0-12.7 [facility] Comment on above: Order Comment: Speci men Type: BLOOD SPECIMEN Ordering Facility: [facility] Address: [address] [place] [address] Performed By: #### 2 4321-2, 80598-1, #### [facility] CLIA [id number] 1 [place] [address] [place] Platelets (Bld) [#/Vol] 329 10*3/uL Normal 150-400 [facility] Comment on above: Order Comment: Speci men Type: BLOOD SPECIMEN Ordering Facility: [facility] Address: [address] [place] [address] Performed By: #### 2 4320-2, 99042-4, #### [facility] CLIA [id number] [address] STATES [facility] RBC (Bld) [#/Vol] 4.32 10*6/uL Normal 3.90-5.20 [facility] Comment on above: Order Comment: Speci men Type: BLOOD SPECIMEN Ordering Facility: [facility] Address: [address] [place] [address] Performed By: #### 2 4321-2, 73122-2, #### [facility] CLIA [id number] 1 [place] [address] [place] WBC (Bld) [#/Vol] 7.45 10*3/uL Normal 3.70-11.00 [facility] Comment on above: Order Comment: Speci men Type: BLOOD SPECIMEN Ordering Facility: [facility] Address: [address] [place] [address] Performed By: #### 2 4321-2, 27662-7, #### [facility] CLIA [id number] [address] [facility] CONSULTon 06-11-2024 CONSULT HNO ID: [id number] Author: JENNY WALLACE MD Service: Neurology General [...] cannot ambulate. Pre-admission Pre-morbid mRS: Premorbid Modified Ross Score: 0 - No symptoms at all [...] Vital Signs: (more content not included)... Normal [facility] CONSULT HNO ID: [id number] Author: TOÑO MANZO MD Service: Urology Author [...] discussed with the Patient or Patient's Authorized Editorial Cartoonist. As applicable, any other physician, advance practice provider, medical student, or other health professional student that will be observing or involved in the sensitive examination for educational or training purposes was discussed with the Patient or Authorized Editorial Cartoonist. The Patient or Authorized Editorial Cartoonist has agreed to proceed with the sensitive [...] lesion. Consider follow-up renal CT/MR for characterization. Physician President: DEVEN Miranda (more content not included)... [facility] CONSULT PROGon 06-11-2024 CONSULT PROG HNO ID: [id number] Author: CARL PERSAUD RPh Service: Pharmacy Author Type: Pharmacist Type: Consult Progress Note Filed: 06/11/2024 13:52 Note Text: PHARMACY ANTICOAGULATION CONSULT Patient Name:.Mel Castillo Admission Date: 06/10/2024 Date: 06/11/2024 Time: 1:51 PM Consult for warfarin dosing per pharmacy has been discontinued. Pharmacy will sign off. Please place order for warfarin dosing per pharmacy" if pharmacy is to resume warfarin dosing. Thank you for allowing us to participate in the care of this patient. Carl Persaud RPh [facility] CONSULT PROG HNO ID: [id number] Author: CARL PERSAUD RPh Service: Pharmacy Author [...] on 06/10/24. Patient was being managed by [facility] but was recently released due to insurance [...] Labs 06/10/24 2330 INR 1.3 Recent Labs 06/10/240 HB 11.4* HCT 37.5 PLT 330 Estimated [...] education: No Signature: Carl Persaud RPh Normal [facility] CT ABD/PEL W IVCONon 06-11-[address] ABD/PEL W IVCON * * *Final Report* * * DATE OF EXAM: Jun 11 2024 3:07AM [facility] 0530 - CT ABD/PEL W IVCON / [...] to bilateral greater trochanters, similar to prior. Principal Biostatistician (topogram) images: No additional findings. IMPRESSION: 1. Mild bilateral hydroureteronephrosis to the pelvic brim without evidence of ureterolithiasis. 2. Indeterminate left renal lesion. Consider follow-up renal CT/MR for characterization. Physician President: DEVEN Transcribe Date/Time: Jun 11 2024 3:09A Dictated by : RAF AYALA MD This examination was interpreted and the report reviewed and electronically signed by: RAF AYALA MD on Jun 11 2024 3:40AM EST [id number] Normal [facility] CT BRAIN WO IVCONon 06-11-[address] BRAIN WO IVCON * * *Final Report* * * DATE OF EXAM: Jun 11 2024 3:05AM [facility] 0504 - CT BRAIN WO IVCON / [...] changes and small remote right occipital infarct. Physician President: DEVEN Transcribe Date/Time: Jun 11 2024 3:05A Dictated by : RIN LANE MD This examination was interpreted and the report reviewed and electronically signed by: RIN LANE MD on Jun 11 2024 3:16AM EST [id number] Normal [facility] ECHO WITH AGITATED SALINE CO NTRASTon 06-11-2024 ECHO WITH AGITATED SALINE CONTRAST Echocardiography Report: Transthoracic Echo [facility] Date of service: 06/11/2024 11:20:46 AM - [place] Ordering physician: DON EDWARDS Indication: TIA Technologist: Dinora Fields [facility] Interpreting physician: Nando Costa MD PATIENT: [...] * * * Final * * * [facility] : [id number] Normal [facility] ED NOTEon 06-11-2024 ED NOTE HNO ID: [id number] Author: GISSELL CARRINGTON RN Service: Emergency Medicine Author Type: Registered Nurse Type: ED Notes Filed: 06/11/2024 05:58 Note Text: Gave report to assigned RN on 2100. Assigned RN is ready to receive patient at this time. Normal [facility] ED NOTE HNO ID: [id number] Author: GISSELL CARRINGTON RN Service: Emergency Medicine Author Type: Registered Nurse Type: ED Notes Filed: 06/11/2024 00:40 Note Text: Dr. Mendoza at bedside placing a US IV at this time. Normal [facility] HIGH SENSITIVITY TROPONIN T (SECOND)on 06-11-2024 Troponin T.cardiac High sensitivity method [Mass/Vol] 14 ng/L High <12 [facility] Comment on above: Order Comment: Speci men Type: BLOOD SPECIMEN Ordering Facility: [facility] Address: [address] [place] [address] Performed By: #### 2 4751-2, 23751-8, #### [facility] CLIA [id number] 1 [place] [address] [facility] HIGH SENSITIVITY TROPONIN T (THIRD) 3 HRS AFTER INITIALon 06-11-2024 Troponin T.cardiac High sensitivity method [Mass/Vol] 14 ng/L High <12 [facility] Comment on above: Order Comment: Speci men Type: BLOOD SPECIMEN Ordering Facility: [facility] Address: [facility] [place] [address] Performed By: #### 2 4321-2, 83938-4, #### [facility] CLIA [id number] [address] [place] [id number] [facility] HISTORY PHYSICALon HISTORY PHYSICAL HNO ID: [id number] Author: DON EDWARDS DO Service: Hospital Medicine Author Type: Physician Type: H&P Filed: 06/11/2024 14:14 Note Text: DEPARTMENT OF HOSPITAL MEDICINE HISTORY AND PHYSICAL EXAM SERVICE DATE: 06/11/2024 SERVICE TIME: 10:25 AM Primary Care Physician: Jared Evans MD, MD NIGHT AND WEEKEND COVERAGE: [employer] COVERAGE: From 7am - 7pm, please call [phone] After 7pm, please call cross cover pager #[phone] Subjective CHIEF COMPLAINT: dizziness with vomiting, slurred [...] Drains, and Airways Line Duration Peripheral 06/11/24 [facility] Left Antecubital 20 Gauge <1 day Drain Duration External Collection Device 06/11/24 0250 [facility] <1 day Reviewed lines and needs to be continued: REASONS: Telemetry DATA: Diagnostic tests reviewed for today's visit: Most recent lab (more content not included)... Normal [facility] MRA BRAIN WO IVCONon 024 MRA BRAIN WO IVCON * * *Final Report* * * DATE OF EXAM: Jun 11 2024 3:52PM [facility] 0272 - MRA BRAIN WO IVCON / PROCEDURE REASON: Neuro deficit, acute, stroke suspected * * * * Physician Interpretation * * * * EXAMINATION: MRI BRAIN WO IVCON, MRA BRAIN WO IVCON, MRA CAROTID WO IVCON CLINICAL HISTORY: Neuro deficit, acute, stroke suspected TECHNIQUE: Routine noncontrast MRI brain protocol including diffusion images. Intracranial and carotid 3D abwt-xd-xsysoo MRA. 3D maximum intensity projection images were [...] Patency: Bilateral Dominance: Left INTRACRANIAL MRA: [place] is patent without significant stenosis. 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 IMPRESSION: Motion degraded study. 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 No hemorrhagic transformation or significant mass effect. Unremarkable carotid MRA. 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 Physician President: DEVEN Transcribe Date/Time: Jun 11 2024 3:54P Dictated by : ESTHER MCKEON MD This examination was interpreted and the report reviewed and electronically signed by: ESTHER MCKEON MD on Jun 11 2024 4:13PM EST [id number] Normal [facility] MRA CAROTID WO IVCONon 06-11 MRA CAROTID WO IVCON * * *Final Report* * * DATE OF EXAM: Jun 11 2024 3:52PM [facility] 0275 - MRA CAROTID WO IVCON / PROCEDURE REASON: Neuro deficit, acute, stroke suspected * * * * Physician Interpretation * * * * EXAMINATION: MRI BRAIN WO IVCON, MRA BRAIN WO IVCON, MRA CAROTID WO IVCON CLINICAL HISTORY: Neuro deficit, acute, stroke suspected TECHNIQUE: Routine noncontrast MRI brain protocol including diffusion images. Intracranial and carotid 3D iqxs-jt-essrzq MRA. 3D maximum intensity projection images were [...] Patency: Bilateral Dominance: Left INTRACRANIAL MRA: [place] is patent without significant stenosis. 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 IMPRESSION: Motion degraded study. 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 No hemorrhagic transformation or significant mass effect. Unremarkable carotid MRA. 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 Physician President: DEVEN Transcribe Date/Time: Jun 11 2024 3:54P Dictated by : ESTHER MCKEON MD This examination was interpreted and the report reviewed and electronically signed by: ESTHER MCKEON MD on Jun 11 2024 4:13PM EST [id number] Normal [facility] MRI BRAIN WO IVCONon 024 MRI BRAIN WO IVCON * * *Final Report* * * DATE OF EXAM: Jun 11 2024 3:52PM [facility] 0294 - MRI BRAIN WO IVCON / PROCEDURE REASON: stroke * * * * Physician Interpretation * * * * EXAMINATION: MRI BRAIN WO IVCON, MRA BRAIN WO IVCON, MRA CAROTID WO IVCON CLINICAL HISTORY: Neuro deficit, acute, stroke suspected TECHNIQUE: Routine noncontrast MRI brain protocol including diffusion images. Intracranial and carotid 3D djtq-rb-yqeqwp MRA. 3D maximum intensity projection images were [...] Patency: Bilateral Dominance: Left INTRACRANIAL MRA: [place] is patent without significant stenosis. 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 IMPRESSION: Motion degraded study. 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 No hemorrhagic transformation or significant mass effect. Unremarkable carotid MRA. 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 Physician President: DEVEN Transcribe Date/Time: Jun 11 2024 3:54P Dictated by : ESTHER MCKEON MD This examination was interpreted and the report reviewed and electronically signed by: ESTHER MCKEON MD on Jun 11 2024 4:13PM EST [id number] Normal [facility] PT panel Coag (PPP)on 2023 INR Coag (PPP) [Relative time] 1.2 {INR} Normal 0.9-1.3 [facility] Comment on above: Order Comment: Speci men Type: BLOOD SPECIMEN Ordering Facility: [facility] Address: [address] [place], [place] [id number] Result Comment: Mayra min K Antagonist (VKA) Therapeutic Range: INR 2 to 3 (Target INR of 2.5) Note: For patients treated with VKA drugs, such as warfarin, the [employer] 2012 Guideline recommends [...] 2.5 to 3.5 (target INR of 3). Guyatt GH, et al. Chest 2012, 141:7S-47S Daren HOYT, et al. [facility] 2017, 70: 252-289 Performed By: #### 2 4321-2, 54754-3, #### [facility] CLIA [id number] [address] [place] PT Coag (PPP) [Time] 12.6 s Normal 9.7-13.0 [facility] Comment on above: Order Comment: Speci men Type: BLOOD SPECIMEN Ordering Facility: [facility] Address: [address] [place] [address] Performed By: #### 2 4321-2, 16135-4, #### [facility] CLIA [id number] [address] OF [facility] THERAPY NTon 06-11-2024 THERAPY NT HNO ID: [id number] Author: BASILIA MAGALLANES CCC-YARN REWINDER Service: Speech/Swallow Author Type: Speech Language Pathologist Type: Therapy (PT/OT/Speech/Resp) Filed: 06/11/2024 09:44 Note Text: Speech Therapy Clinical Swallow Evaluation SERVICE DATE: 06/11/2024 SERVICE TIME: 915 to 930 ROOM: [place] [address] IMPRESSION: Functional oropharyngeal phases of swallowing: without [...] Skilled Need Interventions Provided: Clinical Swallow Evaluation (14437) $ Clinical Swallow Evaluation (17200) Billed Units: 1 unit Training and Education [...] for this therapy evaluation/treatment. SIGNATURE: Basilia Magallanes CCC-YARN REWINDER PATIENT NAME: Mel Castillo DATE: June 11, 2024 TIME: 9:39 AM Normal [facility] THERAPY NT HNO ID: [id number] Author: MEHREEN MANCERA, PT Service: Physical Therapy Author Type: Physical Therapist Type: Therapy (PT/OT/Speech/Resp) Filed: 06/11/2024 09:27 Note Text: Physical Therapy Evaluation Summary SERVICE DATE: 06/11/2024 SERVICE TIME: 804 to 841 ROOM: [place] [address] PT 6 Clicks Score: 18 DISCHARGE RECOMMENDATIONS [...] and signs-other TREATMENT INTERVENTIONS Evaluation, Canalith Repositioning (33581) Skilled Treatment Time (minutes): 37 $ Evaluation-Moderate (02860) Billed Units: 1 unit $ Canalith Repositioning (60666) Billed Units: 1 unit Repositioning maneuver for [...] postion. L torsional upbeating nystagmus (very brisk) [place], Right: Neg Horizontal Canals, Left: Pt with signs of L posterior canal BPPV in this postion Horizontal Canals, Right: neg GOALS Transfer Sit to/from Stand with: Supervision Ambulate with: Supervision Distance: 100' Device: Wheeled Walker Goal: Pt will not have c/o vertigo or signs of nystagmus with position testing Rehab Potential: Good PLAN PT Frequency: 3 Times (more content not included)... Normal [facility] Urinalysis complete panel (U )on 06-11-2024 Bilirubin Ql (U) Negative Normal Negative [facility] Comment on above: Order Comment: Speci men Type: URINE SPECIMENOrdering Facility: [facility] Address: [address] [place] [address] Performed By: #### 2 4356-8 ####[facility] LABORATORYCLIA [id number] [address] Clarity (Unsp spec) Clear Normal Clear [facility] Comment on above: Order Comment: Speci men Type: URINE SPECIMENOrdering Facility: [facility] Address: [address] [place] [address] Performed By: #### 2 4356-8 ####[facility] LABORATORYCLIA [id number] [address] STATES [facility] Color (U) Light Yellow Normal yellow [facility] Comment on above: Order Comment: Speci men Type: URINE SPECIMENOrdering Facility: [facility] Address: [address] [place] [address] Performed By: #### 2 4356-8 ####[facility] LABORATORYCLIA [id number] [address] [place] Glucose Test strip (U) [Mass/Vol] Negative Normal Trace, Negative [facility] Comment on above: Order Comment: Speci men Type: URINE SPECIMENOrdering Facility: [facility] Address: [address] [place] [address] Performed By: #### 2 4356-8 ####[facility] LABORATORYCLIA [id number] [address] [place] Hemoglobin Ql (U) Trace Normal Negative, Trace [facility] Comment on above: Order Comment: Speci men Type: URINE SPECIMENOrdering Facility: [facility] [facility] Address: [address] [place] [address] Performed By: #### 2 4356-8 ####[facility] LABORATORYCLIA [id number] [address] Ketones Ql (U) Negative Normal Negative, Trace [facility] Comment on above: Order Comment: Speci men Type: URINE SPECIMENOrdering Facility: [facility] Address: [address] [place] [address] Performed By: #### 2 4356-8 ####[facility] LABORATORYCLIA [id number] [address] Leukocyte esterase Test strip Ql (U) Negative Normal Negative, 25 Jose Luis/uL [facility] Comment on above: Order Comment: Speci men Type: URINE SPECIMENOrdering Facility: [facility] Address: [address] [place] [address] Performed By: #### 2 4356-8 ####[facility] LABORATORYCLIA [id number] [address] Nitrite Ql (U) Negative Normal Negative [facility] Comment on above: Order Comment: Speci men Type: URINE SPECIMENOrdering Facility: [facility] Address: [address] [place] [address] Performed By: #### 2 4356-8 ####[facility] LABORATORYCLIA [id number] [address] STATES [facility] pH (U) [pH] High 5.0-8.0 [facility] Comment on above: Order Comment: Speci men Type: URINE SPECIMENOrdering Facility: [facility] Address: [address] [place] [address] Performed By: #### 2 4356-8 ####[facility] LABORATORYCLIA [id number] [address] [place] Protein (U) [Mass/Vol] 1+ Abnormal Trace , Negative [facility] Comment on above: Order Comment: Speci men Type: URINE SPECIMENOrdering Facility: [facility] Address: [address] [place] [address] Performed By: #### 2 4356-8 ####[facility] LABORATORYCLIA [id number] [address] [place] RBC LM.HPF (Urine sed) [#/Area] 6-10 /HPF Abnormal 0-3 /HPF [facility] Comment on above: Order Comment: Speci men Type: URINE SPECIMENOrdering Facility: [facility] Address: [address] [place] [address] Performed By: #### 2 4356-8 ####[facility] LABORATORYCLIA [id number] [address] [place] Specific gravity (U) [Rel density] 1.039 High 1.005-1.030 [facility] Comment on above: Order Comment: Speci men Type: URINE SPECIMENOrdering Facility: [facility] Address: [address] [place] [address] Performed By: #### 2 4356-8 ####[facility] LABORATORYCLIA [id number] [address] Urobilinogen Ql (U) Normal Normal Normal [facility] Comment on above: Order Comment: Speci men Type: URINE SPECIMENOrdering Facility: [facility] [facility] Address: [address] [place] [address] Performed By: #### 2 4356-8 ####[facility] LABORATORYCLIA [id number] [address] WBC LM.HPF (Urine sed) [#/Area] 0-5 /HPF Normal 0-5 /HPF [facility] Comment on above: Order Comment: Speci men Type: URINE SPECIMENOrdering Facility: [facility] [facility] Address: [address] [place] [address] Performed By: #### 2 4356-8 ####[facility] LABORATORYCLIA [id number] [address] aPTT PPPon 06-11-2024 aPTT Coag (PPP) [Time] 28.2 s Normal 23.0-32.4 [facility] Comment on above: Order Comment: Speci men Type: BLOOD SPECIMENOrdering Facility: [facility] [facility] Address: [address] [place] [address] Performed By: #### 1 4979-9 ####[facility] LABORATORYCLIA [id number] [address] aPTT Coag (PPP) [Time] 28.9 s Normal 23.0-32.4 [facility] Comment on above: Order Comment: Speci men Type: BLOOD SPECIMEN [facility] Address: [address] [place] [address] Performed By: #### 2 4321-2, 90029-1, #### [facility] CLIA [id number] [address] CBC W Auto Differential pane l (Bld)on 06-10-2024 Basophils (Bld) [#/Vol] 0.04 10*3/uL Normal <0.11 [facility] Comment on above: Order Comment: Speci men Type: BLOOD SPECIMEN [facility] Address: [address] [place] [address] Performed By: #### 2 432-2, 97569-0, #### [facility] CLIA [id number] [address] Basophils/100 WBC (Bld) 0.7 % Normal A [facility] Comment on above: Order Comment: Speci men Type: BLOOD SPECIMEN [facility] [facility] Address: [address] [place] [address] Performed By: #### 2 4321-2, 91847-0, #### [facility] CLIA [id number] [address] Differential cell count method Nom (Bld) Auto Normal [facility] Comment on above: Order Comment: Speci men Type: BLOOD SPECIMEN [facility] [facility] Address: [address] [place] [address] Performed By: #### 2 4321-2, 32776-3, #### [facility] CLIA [id number] [address] [place] [address] [place] Eosinophils (Bld) [#/Vol] 10*3/uL Normal <0.46 [facility] Comment on above: Order Comment: Speci men Type: BLOOD SPECIMEN [facility] [facility] Address: [address] [place] [address] Performed By: #### 2 4321-2, 94922-8, #### [facility] CLIA [id number] [address] [place] Eosinophils/100 WBC (Bld) 0.2 % Normal [facility] Comment on above: Order Comment: Speci men Type: BLOOD SPECIMEN [facility] [facility] Address: [address] [place] [address] Performed By: #### 2 1-2, 54221-8, #### [facility] CLIA [id number] [address] [place] Erythrocyte distribution width (RBC) [Ratio] 15.6 % High 11.5-15.0 [facility] Comment on above: Order Comment: Speci men Type: BLOOD SPECIMEN [facility] Address: [address] [place] [address] Performed By: #### 2 4321-2, 97214-8, #### [facility] CLIA [id number] [address] [place] Hematocrit (Bld) [Volume fraction] 37.5 % Normal 36.0-46.0 [facility] Comment on above: Order Comment: Speci men Type: BLOOD SPECIMEN [facility] Address: [address] [place] [address] Performed By: #### 2 1-2, 99523-9, #### [facility] CLIA [id number] [address] [place] Hemoglobin (Bld) [Mass/Vol] 11.4 g/dL Low 11.5-15.5 [facility] Comment on above: Order Comment: Speci men Type: BLOOD SPECIMEN [facility] Address: [address] [place] [address] Performed By: #### 2 4321-2, 58420-3, #### [facility] CLIA [id number] [address] [place] Immature granulocytes (Bld) [#/Vol] 10*3/uL Normal <0.10 [facility] Comment on above: Order Comment: Speci men Type: BLOOD SPECIMEN [facility] [facility] Address: [address] [place] [address] Performed By: #### 2 4321-2, 81921-9, #### [facility] CLIA [id number] [address] [place] Immature granulocytes/100 WBC (Bld) 0.4 % Normal [facility] Comment on above: Order Comment: Speci men Type: BLOOD SPECIMEN [facility] [facility] Address: [address] [place] [address] Performed By: #### 2 1-2, 67203-7, #### [facility] CLIA [id number] [address] [place] [address] [place] Lymphocytes (Bld) [#/Vol] 0.61 10*3/uL Low 1.00-4.00 [facility] Comment on above: Order Comment: Speci men Type: BLOOD SPECIMEN [facility] [facility] Address: [facility] [place] [place] [address] Performed By: #### 2 4321-2, 15194-3, #### [facility] CLIA [id number] [address] [place] Lymphocytes/100 WBC (Bld) 10.8 % Normal [facility] Comment on above: Order Comment: Speci men Type: BLOOD SPECIMEN [facility] [facility] Address: [address] [place] [address] Performed By: #### 2 4321-2, 83571-8, #### [facility] CLIA [id number] [address] MCH (RBC) [Entitic mass] 26.2 pg Normal 26.0-34.0 [facility] Comment on above: Order Comment: Speci men Type: BLOOD SPECIMEN [facility] Address: [address] [place] [address] Performed By: #### 2 4321-2, 96221-3, #### [facility] CLIA [id number] [address] MCHC (RBC) [Mass/Vol] 30.4 g/dL Low 30.5-36.0 [facility] Comment on above: Order Comment: Speci men Type: BLOOD SPECIMEN [facility] Address: [address] [place] [address] Performed By: #### 2 432-2, 75412-8, #### [facility] CLIA [id number] [address] MCV (RBC) [Entitic vol] 86.2 fL Normal 80.0-100.0 [facility] Comment on above: Order Comment: Speci men Type: BLOOD SPECIMEN [facility] [facility] Address: [address] [place] [address] Performed By: #### 2 4321-2, 58415-5, #### [facility] CLIA [id number] [address] [place] Monocytes (Bld) [#/Vol] 0.21 10*3/uL Normal <0.87 [facility] Comment on above: Order Comment: Speci men Type: BLOOD SPECIMEN [facility] [facility] Address: [address] [place] [address] Performed By: #### 2 4321-2, 66338-0, #### [facility] CLIA [id number] [address] Monocytes/100 WBC (Bld) 3.7 % Normal A [facility] Comment on above: Order Comment: Speci men Type: BLOOD SPECIMEN [facility] Address: [address] [place] [address] Performed By: #### 2 4321-2, 13039-3, #### [facility] CLIA [id number] 1 [place] [address] [place] Neutrophils (Bld) [#/Vol] 4.78 10*3/uL Normal 1.45-7.50 [facility] Comment on above: Order Comment: Speci men Type: BLOOD SPECIMEN [facility] [facility] Address: [address] [place] [address] Performed By: #### 2 4321-2, 38229-6, #### [facility] CLIA [id number] [address] [place] Neutrophils/100 WBC (Bld) 84.2 % Normal [facility] Comment on above: Order Comment: Speci men Type: BLOOD SPECIMEN [facility] [facility] Address: [address] [place] [address] Performed By: #### 2 1-2, 95219-7, #### [facility] CLIA [id number] 1 [place] [address] [place] Nucleated RBC (Bld) [#/Vol] 10*3/uL Normal <0.01 [facility] Comment on above: Order Comment: Speci men Type: BLOOD SPECIMEN [facility] [facility] Address: [address] [place] [address] Performed By: #### 2 4321-2, 29171-4, #### [facility] CLIA [id number] 1 [place] [address] [place] Nucleated RBC/100 WBC (Bld) [Ratio] 0.0 /100 WBC Normal [facility] Comment on above: Order Comment: Speci men Type: BLOOD SPECIMEN [facility] [facility] Address: [address] [place] [address] Performed By: #### 2 4321-2, 52639-4, #### [facility] CLIA [id number] [address] [place] Platelet mean volume (Bld) [Entitic vol] 9.4 fL Normal 9.0-12.7 [facility] Comment on above: Order Comment: Speci men Type: BLOOD SPECIMEN [facility] [facility] Address: [address] [place] [address] Performed By: #### 2 4321-2, 53828-2, #### [facility] CLIA [id number] [address] [place] Platelets (Bld) [#/Vol] 330 10*3/uL Normal 150-400 [facility] Comment on above: Order Comment: Speci men Type: BLOOD SPECIMEN [facility] [facility] Address: [address] [place] [address] Performed By: #### 2 1-2, 09978-1, #### [facility] CLIA [id number] [address] [place] RBC (Bld) [#/Vol] 4.35 10*6/uL Normal 3.90-5.20 [facility] Comment on above: Order Comment: Speci men Type: BLOOD SPECIMEN [facility] [facility] Address: [address] [place] [address] Performed By: #### 2 4321-2, 77815-5, #### [facility] CLIA [id number] 1 [place] [address] [place] WBC (Bld) [#/Vol] 5.67 10*3/uL Normal 3.70-11.00 [facility] Comment on above: Order Comment: Speci men Type: BLOOD SPECIMEN [facility] [facility] Address: [address] [place] [address] Performed By: #### 2 4321-2, 85789-8, #### [facility] CLIA [id number] [address] OF [facility] Comprehensive metabolic 2000 panelon 06-10-2024 Albumin [Mass/Vol] 4.2 g/dL Normal 3.9-4.9 [facility] Comment on above: Order Comment: Speci men Type: BLOOD SPECIMENOrdering Facility: [facility] [facility] Address: [address] [place] [address] Performed By: #### 3 016-3, 76350-6, 7, 66712-9 ####[facility] LABORATORYCLIA [id number] [address] [place] ALP [Catalytic activity/Vol] 99 U/L Normal 34-123 [facility] Comment on above: Order Comment: Speci men Type: BLOOD SPECIMENOrdering Facility: [facility] [facility] Address: [address] [place] [address] Performed By: #### 3 016-3, 04861-0, 7, 97903-1 ####[facility] LABORATORYCLIA [id number] [address] STATES [facility] ALT With P-5'-P [Catalytic activity/Vol] 8 U/L Normal 7-38 [facility] Comment on above: Order Comment: Speci men Type: BLOOD SPECIMENOrdering Facility: [facility] [place] [facility] Address: [address] [place] [address] Performed By: #### 3 016-3, 52376-2, 7, 32801-6 ####[facility]ORATORYCLIA [id number] [address] STATES OF [facility] Anion gap [Moles/Vol] 12 mmol/L Normal 8-15 [facility] Comment on above: Order Comment: Speci men Type: BLOOD SPECIMENOrdering Facility: [facility] [facility] Address: [address] [place] [address] Performed By: #### 3 016-3, 77946-3, 302-7, 40000-1 ####[facility] LABORATORYCLIA [id number] [place] [address] [place] AST With P-5'-P [Catalytic activity/Vol] 12 U/L Low 13-35 [facility] Comment on above: Order Comment: Speci men Type: BLOOD SPECIMENOrdering Facility: [facility] [place] [facility] Address: [address] [place] [address] Performed By: #### 3 016-3, 20323-5, 3024-7, 26836-8 ####[facility] LABORATORYCLIA [id number] [place] [address] [place] Bilirubin [Mass/Vol] 0.4 mg/dL Normal 0.2-1.3 [facility] Comment on above: Order Comment: Speci men Type: BLOOD SPECIMENOrdering Facility: [facility] [facility] Address: [address] [place] [address] Performed By: #### 3 016-3, 42531-4, 302-7, 39728-8 ####[facility]ORATORYCLIA [id number] [place] [address] [place] Calcium [Mass/Vol] 9.5 mg/dL Normal 8.5-10.2 [facility] Comment on above: Order Comment: Speci men Type: BLOOD SPECIMENOrdering Facility: [facility] [facility] Address: [address] [place] [address] Performed By: #### 3 016-3, 91355-9, 302-7, 34979-6 ####[facility] LABORATORYCLIA [id number] [place] [address] [place] Chloride [Moles/Vol] 101 mmol/L Normal 98-107 [facility] Comment on above: Order Comment: Speci men Type: BLOOD SPECIMENOrdering Facility: [facility] [facility] Address: [address] [place] [address] Performed By: #### 3 016-3, 30982-7, 302-7, 83042-0 ####[facility]ORATORYCLIA [id number] [place] [address] [place] CO2 [Moles/Vol] 23 mmol/L Normal 22-30 [facility] Comment on above: Order Comment: Speci men Type: BLOOD SPECIMENOrdering Facility: [facility] [facility] Address: [address] [place] [address] Performed By: #### 3 016-3, 72713-4, 7, 33706-7 ####[facility] LABORATORYCLIA [id number] [place] [address] [place] Creatinine [Mass/Vol] 0.87 mg/dL Normal 0.58-0.96 [facility] Comment on above: Order Comment: Speci men Type: BLOOD SPECIMENOrdering Facility: [facility] [facility] Address: [address] [place] [address] Performed By: #### 3 016-3, 28764-7, 7, ####[facility] LABORATORYCLIA [id number] [address] [place] Creatinine and Glomerular filtration rate.predicted panel (S/P/Bld) 66 mL/min/1.73m??? Normal >=60 [facility] Comment on above: Order Comment: Speci men Type: BLOOD SPECIMENOrdering Facility: [facility] [facility] Address: [address] [place] [address] Result Comment: Isa mated Glomerular Filtration Rate [...] actual GFR. Performed By: #### 3 016-3, 53404-0, 3023-7, 17258-1 ####[facility] LABORATORYCLIA [id number] [place] [id number] [place] Glucose [Mass/Vol] 157 mg/dL High 74-99 [facility] Comment on above: Order Comment: Speci men Type: BLOOD SPECIMENOrdering Facility: [facility] [facility] Address: [address] [place] [address] Result Comment: The [place] [employer] (ADA) provides guidance for cutoff [...] Standards of Medical Care in Diabetes 2016, [place] [employer]. Diabetes Care. 2016.39(Suppl 1). Performed By: #### 3 016-3, 06896-8, 3024-7, 97922-9 ####[facility] LABORATORYCLIA [id number] [place] [address] [place] Potassium [Moles/Vol] 4.3 mmol/L Normal 3.7-5.1 [facility] Comment on above: Order Comment: Speci men Type: BLOOD SPECIMENOrdering Facility: [facility] [facility] Address: [address] [place] [address] Performed By: #### 3 016-3, 28477-4, 30210-22, ####[facility] LABORATORYCLIA [id number] [place] [address] [place] Protein [Mass/Vol] 7.1 g/dL Normal 6.3-8.0 [facility] Comment on above: Order Comment: Speci men Type: BLOOD SPECIMENOrdering Facility: [facility] [facility] Address: [address] [place] [address] Performed By: #### 3 016-3, 80133-9, 3027, 78801-6 ####[facility] LABORATORYCLIA [id number] [place] [address] [place] Sodium [Moles/Vol] 136 mmol/L Normal 136-144 [facility] Comment on above: Order Comment: Speci men Type: BLOOD SPECIMENOrdering Facility: [facility] [facility] Address: [address] [place] [address] Performed By: #### 3 016-3, 77632-1, 3024-7, 82203-9 ####[facility] LABORATORYCLIA [id number] [place] [address] [place] [facility] Urea nitrogen [Mass/Vol] 14 mg/dL Normal - [facility] Comment on above: Order Comment: Speci men Type: BLOOD SPECIMENOrdering Facility: [facility] [facility] Address: [address] [place] [address] Performed By: #### 3 016-3, 32095-9, 3024-7, 91089-8 ####[facility] LABORATORYCLIA [id number] [place] [address] [facility] ECG COMPLETEon 06-10-2024 ECG COMPLETE Ventricular Rate : 6 4 BPM QRS Duration : 90 ms Q-T Interval : 424 ms QTC Calculation(Bazett) : 437 ms Calculated R Gays : 56 degrees Calculated T Gays : 20 degrees ATRIAL FIBRILLATION ABNORMAL ECG NO PREVIOUS ECGS AVAILABLE Confirmed by SAKINA MELLO MD ([id number]) on 12/07/2024 10:44:28 PM NAME : MEL GUADARRAMA PID : [id number] : 1940 Gender : Female Race : ORD : [id number] Procedure Date : Jun 10 2024 23:35:14 Edit Date : Dec 07 2024 22:44:32 Diagnosis: ATRIAL FIBRILLATION ABNORMAL ECG NO PREVIOUS ECGS AVAILABLE Confirmed by SAKINA MELLO MD ([id number]) on 12/07/2024 10:44:28 PM Test Reason : Chest Pain Location : 4 : AKED EM Overread By : SAKINA MELLO MD Edited By : SAKINA MELLO MD Referred By : , Acquired by : REGAN RODRIGES [facility] ED NOTEon 06-10-2024 ED NOTE HNO ID: [id number] Author: DAMARIS HERNANDEZ RN Service: ? Author Type: Registered Nurse Type: ED Notes Filed: 06/10/2024 23:06 Note Text: Bed: 36-ED Expected date: Expected time: Means of arrival: Comments: RAMESH Normal [facility] ED PROV NOTEon 06-10-2024 ED PROV NOTE HNO ID: [id number] Author: THOMAS SERNA MD Service: Emergency Medicine [...] head to the left or right the [place]. No nystagmus noted vertical or lateral The [...] nausea vomiting. THOMAS SERNA 06/11/24 0519 Normal [facility] ED PROV NOTE HNO ID: [id number] Author: THOMAS SERNA MD Service: Emergency Medicine [...] Sexual Activity Alcohol use: Not Currently Comment: [facility] Drug use: Never Sexual activity: Not on [...] Labs Ord (more content not included)... Normal [facility] HIGH SENSITIVITY TROPONIN T (INITIAL)on 06-10-2024 Troponin T.cardiac High sensitivity method [Mass/Vol] 14 ng/L High <12 [facility] Comment on above: Order Comment: Rhina mason Type: BLOOD SPECIMENOrdering Facility: [facility] Address: [address] [place] [address] Performed By: #### L [id number] ####[facility] LABORATORYCLIA [id number] [place] [address] [place] HbA1c (Bld)on 06-10-2024 Average glucose Estimated from glycated hemoglobin (Bld) [Mass/Vol] 120 mg/dL Normal [facility] Comment on above: Order Comment: Rhina mason Type: BLOOD SPECIMEN [facility] Address: [address] [id number] Result Comment: eAG: (Estimated average glucose) is a calculated value from HgbA1c and is home office representative of the average blood glucose level in the last 2-3 month period. Performed By: #### 2 4321-2, 83654-0, #### [facility] CLIA [id number] [address] HbA1c (Bld) [Mass fraction] 5.8 % High 4.3-5.6 [facility] Comment on above: Order Comment: Rhina [facility] Type: BLOOD SPECIMEN [facility] Address: [address] [place] [address] Result Comment: Amer ican Diabetes Association guidelines indicate that patients with HgbA1c in the range 5.7-6.4% are at increased risk for development of diabetes, and intervention by lifestyle modification may be beneficial. HgbA1c greater or equal to 6.5% is considered diagnostic of diabetes. Performed By: #### 2 4321-2, 59456-5, #### [facility] CLIA [id number] [address] OF [facility] Lipid 1996 panelon 4 Cholesterol [Mass/Vol] 227 mg/dL High <200 [facility] Comment on above: Order Comment: [facility] Type: BLOOD SPECIMENOrdering Facility: [facility] Address: [address] [place] [address] Result Comment: <200 mg/dL, Desirable 200-239 mg/dL, Borderline high >239 mg/dL, High Performed By: #### 3 016-3, 37713-2, 7, 73933-9 ####[facility] LABORATORYCLIA [id number] [address] OF [facility] Cholesterol in HDL [Mass/Vol] 78 mg/dL Normal >39 [facility] Comment on above: Order Comment: [facility] Type: BLOOD SPECIMENOrdering Facility: [facility] Address: [address] [place] [address] Result Comment: 40-5 9 mg/dL, Acceptable >59 mg/dL, High: Negative risk factor for coronary heart disease <40 mg/dL, Low: Positive risk factor for coronary heart disease Performed By: #### 3 016-3, 05543-8, 7, 91270-0 ####[facility] LABORATORYCLIA [id number] [place] [address] [place] Cholesterol in LDL [Mass/Vol] 139 mg/dL High <100 [facility] Comment on above: Order Comment: Speci men Type: BLOOD SPECIMENOrdering Facility: [facility] Address: [address] [place] [address] Result Comment: <100 mg/dL, Optimal 100-129 mg/dL, Near optimal/above optimal 130-159 mg/dL, Borderline high 160-189 mg/dL, High >189 mg/dL, Very high Secondary prevention optimal LDL Cholesterol levels are recommended to be < 70 mg/dL Performed By: #### 3 016-3, 18489-7, 3024-01, 83702-8 ####[facility] LABORATORYCLIA [id number] [address] Cholesterol in LDL/Cholesterol in HDL [Mass ratio] 1.78 {ratio} Normal <2.54 [facility] Comment on above: Order Comment: Speci men Type: BLOOD SPECIMENOrdering Facility: [facility] Address: [address] [place] [address] Result Comment: Refe portillo: 1. National Cholesterol Education Program ATP III Guideline At-A-Glance Quick Desk Reference: National Heart, Lung, and Blood Ismay. National Institutes of Health. 2001: NIH Publication No. 01-3305. 2. An International Atherosclerosis Society position paper: global recommendations for the management of dyslipidemia: executive summary, Atherosclerosis. 2014: 232(2):410-413. Performed By: #### 3 016-3, 20180-7, 3024-01, 44233-2 ####[facility] LABORATORYCLIA [id number] [address] [place] Cholesterol in VLDL [Mass/Vol] 10 mg/dL Normal <30 [facility] Comment on above: Order Comment: Samiri men Type: BLOOD SPECIMENOrdering Facility: [facility] Address: [address] [place] [address] Performed By: #### 3 016-3, 00004-6, 7, 90374-7 ####[facility] LABORATORYCLIA [id number] [place] [address] [place] Cholesterol non HDL [Mass/Vol] 149 mg/dL High <130 [facility] Comment on above: Order Comment: Speci men Type: BLOOD SPECIMENOrdering Facility: [facility] Address: [address] [place] [address] Result Comment: <130 mg/dL, Optimal 130-159 mg/dL, Near optimal/above optimal 160-189 mg/dL, Borderline high 190-219 mg/dL, High >219 mg/dL, Very high Secondary prevention optimal non HDL Cholesterol levels are recommended to be <100 mg/dL Performed By: #### 3 016-3, 73811-6, 302-7, 60379-7 ####[facility] LABORATORYCLIA [id number] [address] Cholesterol.total/Pastora sterol in HDL [Mass ratio] 2.91 {ratio} Normal <5.10 [facility] Comment on above: Order Comment: Speci men Type: BLOOD SPECIMENOrdering Facility: [facility] Address: [address] [place] [address] Performed By: #### 3 016-3, 20605-2, 302-7, 37522-5 ####[facility] LABORATORYCLIA [id number] [address] [place] FASTING TIME Normal [facility] Comment on above: Order Comment: Speci men Type: BLOOD SPECIMENOrdering Facility: [facility] Address: [address] [place] [address] Result Comment: Unkn own Performed By: #### 3 016-3, 41353-6, 3024-7, 92846-4 ####[facility] LABORATORYCLIA [id number] [address] [place] Triglyceride [Mass/Vol] 49 mg/dL Normal <150 [facility] Comment on above: Order Comment: Speci men Type: BLOOD SPECIMENOrdering Facility: [facility] Address: [address] [place] [address] Result Comment: <150 mg/dL, Normal 150-199 mg/dL, Borderline high 200-499 mg/dL, High >499 mg/dL, Very high Performed By: #### 3 016-3, 12818-4, 3024-7, 76867-9 ####[facility] LABORATORYCLIA [id number] [address] [place] PT panel Coag (PPP)on 2023 INR Coag (PPP) [Relative time] 1.3 {INR} Normal 0.9-1.3 [facility] Comment on above: Order Comment: Rhina mason Type: BLOOD SPECIMENOrdering Facility: [facility] Address: [address] [place] [address] Result Comment: Mayra min K Antagonist (VKA) Therapeutic Range: INR 2 to 3 (Target INR of 2.5) Note: For patients treated with VKA drugs, such as warfarin, the [place] [employer] 2012 Guideline recommends [...] 70: 252-289 Performed By: #### 3 4528-0 ####[facility] LABORATORYCLIA [id number] [address] [place] PT Coag (PPP) [Time] 13.2 s High 9.7-13.0 [facility] Comment on above: Order Comment: Specrobson mason Type: BLOOD SPECIMENOrdering Facility: [facility] Address: [address] [place] [address] Performed By: #### 3 4528-0 ####[facility] LABORATORYCLIA [id number] [place], [place] [address] [place] [address] [place] T4 Free SerPl-mCncon 024 Free T4 [Mass/Vol] 1.3 ng/dL Normal 0.9-1.7 [facility] Comment on above: Order Comment: Speci men Type: BLOOD SPECIMENOrdering Facility: [facility] Address: [address] [place] [address] Performed By: #### 3 016-3, 96238-3, 3024-7, 70229-6 ####[facility] LABORATORYCLIA [id number] [address] [place] TSH SerPl-aCncon 06-10-2024 TSH Qn 1.620 m[IU]/L Normal 0.270-4.200 [facility] Comment on above: Order Comment: Speci men Type: BLOOD SPECIMENOrdering Facility: [facility] Address: [address] [place] [address] Performed By: #### 3 016-3, 92221-7, 3024-7, 01200-9 ####[facility] LABORATORYCLIA [id number] [address] [place] 36on 06-04-2024 36 Normal [facility] 36on 06-01-2024 36 Normal [facility] Progress Noteon 05-22-2024 Progress Note Normal [facility] PT Coag (Bld) [Time]on 05-21 INR Coag (PPP) [Relative time] 2.8 {INR} Abnormal 0.9 - 1.1 [facility] Interpretation and review of laboratory results Abnormal [facility] Progress Noteon 05-21-2024 Progress Note Normal [facility] Progress Note INR reported on madelaine Lizama with [facility]. Christin can be reached at [phone] with questions. Normal [facility] Protime-INRon 05-21-2024 PT Coag (Bld) [Time] 33.9 s Abnormal 9.0 - 12.0 [facility] US Heart TransthoracicOrdere d By: Davian Landrum on 05-14-2024 Ao Root Index 1.63 cm/m2 [facility] Work Phone: Aortic Arch 2.6 cm [facility] Work Phone: Aortic Root 2.8 cm [facility] Work Phone: Aortic Sinus Valsalva [facility].[address] [facility] Work Phone: Aortic Sinus Valsalva Index 1.63 cm/m2 [facility] Work Phone: Ascending Aorta 2.7 cm [facility] Work Phone: Ascending Aorta Index 1.57 cm/m2 [facility] Work Phone: AV Area by Peak Velocity 1.4 cm2 [facility] Work Phone: AV Area by VTI 1.4 cm2 [facility] Work Phone: AV Mean Gradient 3 mmHg [facility] Work Phone: AV Mean Velocity 0.9 m/s [facility] Work Phone: AV Peak Gradient 7 mmHg [facility] Work Phone: AV Peak Velocity 1.3 m/s [facility] Work Phone: AV Velocity Ratio 0.62 [facility] Work Phone: AV VTI 30 cm [facility] Work Phone: POLA/BSA Peak Velocity 0.8 cm2/m2 [facility] Work Phone: POLA/BSA VTI 0.8 cm2/m2 [facility] Work Phone: E/E' Lateral 14 [facility] Work Phone: E/E' Ratio (Averaged) [address] [facility] Work Phone: E/E' Septal 22 [facility] Work Phone: EF BP 61 % 55 - 100 % [facility] Work Phone: Est. RA Pressure 3 mmHg [facility] Work Phone: Fractional Shortening 2D 30 % 28 - 44 % [facility] [employer] Work Phone: [phone] Global Longitudinal Strain -15.3 % [facility] [employer] Work Phone: Interpretation and review of laboratory results Abnormal [facility] [employer] Work Phone: [phone] IVC Diameter 1.8 cm [facility] [employer] Work Phone: [phone] IVSd 1 cm Abnormal 0.6 - 0.9 cm [facility] [employer] Work Phone: LA Diameter 4.1 cm [facility] [employer] Work Phone: [phone] LA Size Index 2.38 cm/m2 [facility] [employer] Work Phone: [phone] LA Volume 2C 63 mL Abnormal 22 - 52 mL [facility] [employer] Work Phone: [phone] LA Volume 4C 80 mL Abnormal 22 - 52 mL [facility] [employer] Work Phone: LA Volume A/L 76 mL [facility] [employer] Work Phone: LA Volume BP 72 mL Abnormal 22 - 52 mL [facility] [employer] Work Phone: [phone] LA Volume Index 2C 37 mL/m2 Abnormal 16 - 34 mL/m2 [facility] [employer] Work Phone: LA Volume Index 4C 47 mL/m2 Abnormal 16 - 34 mL/m2 [facility] [employer] Work Phone: LA Volume Index A/L 44 mL/m2 16 - 34 mL/m2 [facility] [employer] Work Phone: LA Volume Index BP 42 ml/m2 Abnormal 16 - 34 ml/m2 [facility] [employer] Work Phone: [phone] LA/AO Root Ratio 1.46 [facility] Work Phone: [phone] LV E' Lateral Velocity 11 cm/s [facility] Work Phone: [phone] LV E' Septal Velocity 7 cm/s [facility] Work Phone: LV EDV A2C 45 mL [facility] [employer] Work Phone: [phone] LV EDV A4C 48 mL [facility] [employer] Work Phone: LV EDV BP 47 mL Abnormal 56 - 104 mL [facility] [employer] Work Phone: LV EDV Index A2C 26 mL/m2 [facility] Work Phone: LV EDV Index A4C 28 mL/m2 [facility] Work Phone: LV EDV Index BP 27 mL/m2 [facility] Work Phone: LV Ejection Fraction A2C 68 % [facility] Work Phone: LV Ejection Fraction A4C 55 % [facility] Work Phone: LV ESV A2C 14 mL [facility] Work Phone: LV ESV A4C 21 mL [facility] Work Phone: LV ESV BP 18 mL Abnormal 19 - 49 mL [facility] Work Phone: LV ESV Index A2C 8 mL/m2 [facility] Work Phone: [phone] LV ESV Index A4C 12 mL/m2 [facility] Work Phone: LV ESV Index BP 10 mL/m2 [facility] Work Phone: LV Mass 2D 142.5 g 67 - 162 g [facility] Work Phone: LV Mass 2D Index 82.8 g/m2 43 - 95 g/m2 [facility] Work Phone: LV RWT Ratio 0.47 [facility] Work Phone: LVIDd 4.3 cm 3.9 - 5.3 cm [facility] Work Phone: LVIDd Index 2.5 cm/m2 [facility] Work Phone: LVIDs 3 cm [facility] Work Phone: LVIDs Index 1.74 cm/m2 [facility] Work Phone: LVOT Area 2.5 cm2 [facility] Work Phone: LVOT Cardiac Output 3.2 liter/mi nut e [facility] Work Phone: LVOT Diameter 1.8 cm [facility] Work Phone: [phone] LVOT Mean Gradient 1 mmHg [facility] Work Phone: LVOT Peak Gradient 2 mmHg [facility] Work Phone: [phone] LVOT Peak Velocity 0.8 m/s [facility] Work Phone: LVOT Stroke Volume Index 25.1 mL/m2 [facility] Work Phone: [phone] LVOT SV 43.2 ml [facility] Work Phone: LVOT VTI 17 cm [facility] Work Phone: [phone] LVOT:AV VTI Index 0.57 [facility] Work Phone: [phone] LVPWd 1 cm Abnormal 0.6 - 0.9 cm [facility] Work Phone: [phone] MV A Velocity 0.41 m/s [facility] Work Phone: [phone] MV Area by PHT 3.3 cm2 [facility] Work Phone: [phone] MV Area by VTI 1.2 cm2 [facility] Work Phone: [phone] MV E Velocity 1.54 m/s [facility] Work Phone: [phone] MV E Wave Deceleration Time 180.9 ms [facility] Work Phone: [phone] MV E/A 3.76 [facility] Work Phone: MV Max Velocity 1.7 m/s [facility] Work Phone: MV Mean Gradient 4 mmHg [facility] Work Phone: MV Mean Velocity 0.9 m/s [facility] Work Phone: MV Peak Gradient 11 mmHg [facility] Work Phone: MV PHT 66.9 ms [facility] Work Phone: MV VTI 35.1 cm [facility] Work Phone: MV:LVOT VTI Index 2.06 [facility] Work Phone: RA Area 4C 55.1 mL [facility] Work Phone: [phone] RV Basal Dimension 2.7 cm [facility] Work Phone: [phone] RV Free Wall Peak S' 11 cm/s [facility] Work Phone: [phone] RV Longitudinal Dimension 4.9 cm [facility] Work Phone: [phone] RV Mid Dimension 2.1 cm [facility] Work Phone: [phone] RVSP 54 mmHg [facility] Work Phone: Sinotubular Junction 2.7 cm [facility] Work Phone: [phone] TAPSE 1.5 cm Abnormal 1.7 cm [facility] Work Phone: [phone] TR Max Velocity 3.56 m/s [facility] Work Phone: [phone] TR Peak Gradient 51 mmHg [facility] Work Phone: [phone] TR Peak Velocity PISA 3.6 m/s [facility] Work Phone: [phone] TR VTI 120.8 cm [facility] Work Phone: [phone] TV EROA 0.2 cm2 [facility] Work Phone: [phone] TV Nyquist Velocity 39 cm/s [facility] Work Phone: [phone] [facility] Work Phone: [phone] Heart Transthoracicon There is a 1.3 x [...] time] 2.7 {INR} Abnormal 0.9 - 1.1 [facility] Interpretation and review of laboratory results Abnormal [facility] Progress Noteon 05-09-2024 Progress Note Graciela from [facility] call ed in results. Normal [facility] Progress Note Normal [facility] Protime-INRon 05-09-2024 PT Coag (Bld) [Time] 32.1 s Abnormal 9.0 - 12.0 [facility] PT Coag (Bld) [Time]on 05-01 INR Coag (PPP) [Relative time] 2.7 {INR} Abnormal 0.9 - 1.1 [facility] Interpretation and review of laboratory results Abnormal [facility] Progress Noteon 05-01-2024 Progress Note Normal [facility] Progress Note Tia- [facility]- [phone] Normal [facility] Protime-INRon 05-01-2024 PT Coag (Bld) [Time] 32.4 s Abnormal 9.0 - 12.0 [facility] 36on 04-27-2024 36 Pt requested refill on warfarin 5mg. Sent to [facility]. Receipt confirmed by pharmacy. Normal [facility] Progress Noteon 04-27-2024 Progress Note Normal [facility] Progress Note Tia- [facility]- [phone] Normal [facility] Progress Noteon 04-25-2024 Progress Note Normal [facility] Progress Noteon 04-23-2024 Progress Note Normal [facility] Progress Note Christin [facility] called any questions or concerns [phone]. Normal [facility] PT Coag (Bld) [Time]on 04-19 INR Coag (PPP) [Relative time] 2.1 {INR} Abnormal 0.9 - 1.1 [facility] Interpretation and review of laboratory results Abnormal [facility] Progress Noteon 04-19-2024 Progress Note Normal [facility] Progress Note Graciela with [facility] repo rts INR on Graciela can be reached at [phone] with any questions. Normal [facility] Protime-INRon 04-19-2024 PT Coag (Bld) [Time] 24.9 s Abnormal 9.0 - 12.0 [facility] Progress Noteon 04-16-2024 Progress Note Christin- [facility]- [phone] Normal [facility] Progress Note Normal [facility] Progress Noteon 04-14-2024 Progress Note Placed new order for POCT INR, [facility] had not received. Normal [facility] [id number] 04-13-2024 [id number] Normal [facility] APTTon 04-13-2024 aPTT Coag (Bld) [Time] 132.2 s Critically high 20.0-30. 5 [facility] Comment on above: Result Comment: BUBBA R COMMENTS:NOTE: The therapeutic time for Heparin anticoagulation, based on Xa activity inhibition, is an APTT of 46-80 seconds. Performed By: #### L AB320, [id number] ####Cannon Pinion Adjuster: VELMA VALADEZ ([id number])[facility] ([facility])[address] [place] [address] BASIC METABOLIC PANELon 09-2 Anion gap [Moles/Vol] 2 mmol/L Low 3-13 [facility] Comment on above: Performed By: #### L AB15 ####Cannon Pinion Adjuster: VELMA VALADEZ ([id number])[facility] ([facility])[address] [place] [address] Calcium [Mass/Vol] 9.0 mg/dL Normal 8.4-10.4 [facility] Comment on above: Performed By: #### L AB15 ####Cannon Pinion Adjuster: VELMA VALADEZ ([id number])[facility] ([facility])[address] [place] [address] Chloride [Moles/Vol] 108 mmol/L High 98-107 [facility] Comment on above: Performed By: #### L AB15 ####Cannon Pinion Adjuster: VELMA VALADEZ ([id number])[facility] ([facility])[address] [place] [address] CO2 [Moles/Vol] 25 mmol/L Normal 22-30 [facility] Comment on above: Performed By: #### L AB15 ####Cannon Pinion Adjuster: VELMA VALADEZ ([id number])[facility] ([facility])[address] [place] [address] Creatinine [Mass/Vol] 1.00 mg/dL Normal 0.52-1.04 [facility] Comment on above: Performed By: #### L AB15 ####Cannon Pinion Adjuster: VELMA VALADEZ ([id number])[facility] ([facility])[address] [place] [address] [place] GLOMERULAR FILTRATION RATE ML/MIN/1.73 SQ M.PREDICTED 55.7 mL/min/1.73m*2 Low >60.0 [facility] Comment on above: Result Comment: Calc ulation based on the Chronic Kidney Disease Epidemiology Collaboration (CKD-EPI) equation refit without adjustment for race Performed By: #### L AB15 ####Cannon Pinion Adjuster: VELMA VALADEZ ([id number])[facility] ([facility])[address] [place] [address] Glucose [Mass/Vol] 98 mg/dL Normal 70-100 [facility] Comment on above: Performed By: #### L AB15 ####Cannon Pinion Adjuster: VELMA VALADEZ ([id number])[facility] [facility])[address] [place] [address] Potassium [Moles/Vol] 4.3 mmol/L Normal 3.5-5.1 [facility] Comment on above: Performed By: #### L [id number] ####Cannon Pinion Adjuster: VELMA VALADEZ ([id number])[facility] ([facility])[address] [place] [address] Sodium [Moles/Vol] 135 mmol/L Normal 135-145 [facility] Comment on above: Performed By: #### L [id number] ####Cannon Pinion Adjuster: VELMA VALADEZ ([id number])[facility] ([facility])[address] [place] [address] Urea nitrogen [Mass/Vol] 18 mg/dL High 7-17 [facility] Comment on above: Performed By: #### L [id number] ####Cannon Pinion Adjuster: VELMA VALADEZ ([id number])[facility] ([facility])[address] [place] [address] Basic metabolic 1998 panelon 04-13-2024 Anion gap [Moles/Vol] 2 mmol/L Low 3 - 13 mmol/L [facility] Calcium [Mass/Vol] 9.0 mg/dL 8.4 - 10. 4 mg/dL [facility] Chloride [Moles/Vol] 108 mmol/L High 98 - 10 7 mmol/L [facility] CO2 [Moles/Vol] 25 mmol/L 22 - 30 mmol/L [facility] Creatinine [Mass/Vol] 1.00 mg/dL 0.52 - 1.04 mg/dL [facility] GFR/1.73 sq M.predicted (S/P/Bld) [Vol rate/Area] 55.7 mL/min Low - PINF [facility] Comment on above: Calculation based on the Chronic Kidney Disease Epidemiology Collaboration (CKD-EPI) equation refit without adjustment for race Glucose [Mass/Vol] 98 mg/dL 70 - 100 mg/dL [facility] Interpretation and review of laboratory results Abnormal [facility] Potassium [Moles/Vol] 4.3 mmol/L 3.5 - 5.1 mmol/L [facility] Sodium [Moles/Vol] 135 mmol/L 135 - 145 mmol/L [facility] Urea nitrogen [Mass/Vol] 18 mg/dL High 7 - 17 mg/dL [facility] CARECOORDon 04-13-2024 [place] Normal [facility] Normal [facility] CBC W Auto Differential pane l (Bld)on 04-13-2024 Basophils (Bld) [#/Vol] 0.0 10*3/uL 0.0 - 0.2 10*3/uL [facility] Basophils/100 WBC (Bld) 0.7 % 0.0 - 2.0 % [facility] Eosinophils (Bld) [#/Vol] 0.1 10*3/uL 0.0 - 0.5 10*3/uL [facility] Eosinophils/100 WBC (Bld) 2.6 % 0.0 - 6.0 % [facility] Erythrocyte distribution width (RBC) [Ratio] 14.5 % 11.5 - 15.0 % [facility] Hematocrit (Bld) [Volume fraction] 26.3 % Low 35.0 - 47.0 % [facility] Hemoglobin (Bld) [Mass/Vol] 8.6 g/dL Low 11.7 - 16.0 g/dL [facility] Immature granulocytes (Bld) [#/Vol] 0.0 10*3/uL NINF - 0.1 10*3/uL [facility] Immature granulocytes/100 WBC (Bld) 0.2 % 0.0 - 2.0 % [facility] Interpretation and review of laboratory results Abnormal [facility] Lymphocytes (Bld) [#/Vol] 1.4 10*3/uL 1.0 - 4.3 10*3/uL [facility] Lymphocytes/100 WBC (Bld) 33.5 % 15.0 - 45.0 % [facility] MCH (RBC) [Entitic mass] 29.8 pg 26.0 - 34.0 pg [facility] MCHC (RBC) [Mass/Vol] 32.7 % 30.5 - 36.0 % [facility] MCV (RBC) [Entitic vol] 91.0 fL 77.0 - 99.0 fL [facility] Monocytes (Bld) [#/Vol] 0.5 10*3/uL 0.0 - 0.9 10*3/uL [facility] Monocytes/100 WBC (Bld) 11.3 % 5.0 - 13.0 % [facility] Neutrophils (Bld) [#/Vol] 2.2 10*3/uL 1.8 - 7.5 10*3/uL [facility] Neutrophils/100 WBC (Bld) 51.7 % 38.0 - 82.0 % [facility] Nucleated RBC/100 WBC (Bld) [Ratio] 0.0 % [facility] Platelet mean volume (Bld) [Entitic vol] 9.4 fL 9.0 - 12.7 fL [facility] Platelets (Bld) [#/Vol] 317 10*3/uL 140 - 440 10*3/uL [facility] RBC (Bld) [#/Vol] 2.89 10*6/uL Low 3.80 - 5.2 0 10*6/uL [facility] WBC (Bld) [#/Vol] 4.2 10*3/uL 3.6 - 10.7 10*3/uL [facility] CBC WITH AUTO DIFFERENTIALon 04-13-2024 Basophils (Bld) [#/Vol] 0.0 10*3/uL Normal 0.0-0.2 [facility] Comment on above: Performed By: #### L [id number] ####Cannon Pinion Adjuster: VELMA VALADEZ ([id number])[facility])[address] [place] [address] Basophils/100 WBC (Bld) 0.7 % Normal 0.0-2.0 [facility] Comment on above: Performed By: #### L [id number] ####Cannon Pinion Adjuster: VELMA VALADEZ ([id number])[facility])[address] [place] [address] Eosinophils (Bld) [#/Vol] 0.1 10*3/uL Normal 0.0-0.5 [facility] Comment on above: Performed By: #### L [id number] ####Cannon Pinion Adjuster: VELMA VALADEZ ([id number])[facility])[address] [place] [address] Eosinophils/100 WBC (Bld) 2.6 % Normal 0.0-6.0 [facility] Comment on above: Performed By: #### L [id number] ####Cannon Pinion Adjuster: VELMA VALADEZ ([id number])[facility])[address] [place] [address] Erythrocyte distribution width (RBC) [Ratio] 14.5 % Normal 11.5-15.0 [facility] Comment on above: Performed By: #### L [id number] ####Cannon Pinion Adjuster: VELMA VALADEZ ([id number])[address] Hematocrit (Bld) [Volume fraction] 26.3 % Low 35.0-47.0 [facility] Comment on above: Performed By: #### L [id number] ####Cannon Pinion Adjuster: VELMA VALADEZ ([id number])[address] Hemoglobin (Bld) [Mass/Vol] 8.6 g/dL Low 11.7-16.0 [facility] Comment on above: Performed By: #### L [id number] ####Cannon Pinion Adjuster: VELMA VALADEZ ([id number])[facility])[address] [place] [address] IMMATURE GRANS % 0.2 % Normal 0.0-2.0 [facility] Comment on above: Performed By: #### L [id number] ####Cannon Pinion Adjuster: VELMA VALADEZ ([id number])[address] IMMATURE GRANS ABSOLUTE 0.0 10*3/uL Normal <0.1 [facility] Comment on above: Performed By: #### L [id number] ####Cannon Pinion Adjuster: VELMA [id number])[facility])[address] [place] [address] Lymphocytes (Bld) [#/Vol] 1.4 10*3/uL Normal 1.0-4.3 [facility] Comment on above: Performed By: #### L [id number] ####Cannon Pinion Adjuster: VELMA VALADEZ ([id number])[facility])[address] [place] [address] Lymphocytes/100 WBC (Bld) 33.5 % Normal 15.0-45.0 [facility] Comment on above: Performed By: #### L [id number] ####Cannon Pinion Adjuster: VELMA VALADEZ ([id number])[facility])[address] [place] [address] MCH (RBC) [Entitic mass] 29.8 pg Normal 26.0-34.0 [facility] Comment on above: Performed By: #### L [id number] ####Cannon Pinion Adjuster: VELMA VALADEZ ([id number])[facility])[address] [place] [address] MCHC 32.7 % Normal 30.5-36.0 [facility] Comment on above: Performed By: #### L [id number] ####Cannon Pinion Adjuster: VELMA VALADEZ ([id number])[facility])[address] [place] [address] MCV (RBC) [Entitic vol] 91.0 fL Normal 77.0-99.0 [facility] Comment on above: Performed By: #### L [id number] ####Cannon Pinion Adjuster: VELMA VALADEZ ([id number])[facility])[address] [place] [address] Monocytes (Bld) [#/Vol] 0.5 10*3/uL Normal 0.0-0.9 [facility] Comment on above: Performed By: #### L [id number] ####Cannon Pinion Adjuster: VELMA VALADEZ ([id number])[facility])[address] [place] [address] [place] Monocytes/100 WBC (Bld) 11.3 % Normal 5.0-13.0 [facility] Comment on above: Performed By: #### L [id number] ####Cannon Pinion Adjuster: VELMA VALADEZ ([id number])[facility] ([facility])[address] [place] [address] NEUTROPHILS ABSOLUTE 2.2 10*3/uL Normal 1.8-7.5 [facility] Comment on above: Performed By: #### L [id number] ####Cannon Pinion Adjuster: VELMA VALADEZ ([id number])[facility] ([facility])[address] [place] [address] Neutrophils/100 WBC (Bld) 51.7 % Normal 38.0-82.0 [facility] Comment on above: Performed By: #### L [id number] ####Cannon Pinion Adjuster: VELMA VALADEZ ([id number])[facility] ([facility])[address] [place] [address] NRBC 0.0 /100 WBCs Normal 0.0-2.0 [facility] Comment on above: Performed By: #### L [id number] ####Cannon Pinion Adjuster: VELMA VALADEZ ([id number])[facility] ([facility])[address] [place] [address] Platelet mean volume (Bld) [Entitic vol] 9.4 fL Normal 9.0-12.7 [facility] Comment on above: Performed By: #### L [id number] ####Cannon Pinion Adjuster: VELMA VALADEZ ([id number])[facility] ([facility])[address] [place] [address] Platelets (Bld) [#/Vol] 317 10*3/uL Normal 140-440 [facility] Comment on above: Performed By: #### L [id number] ####Cannon Pinion Adjuster: VELMA VALADEZ ([id number])[facility] ([facility])[address] [place] [address] RBC (Bld) [#/Vol] 2.89 10*6/uL Low 3.80-5.20 [facility] Comment on above: Performed By: #### L [id number] ####Cannon Pinion Adjuster: VELMA VALADEZ ([id number])[facility])[address] [place] [address] WBC (Bld) [#/Vol] 4.2 10*3/uL Normal 3.6-10.7 [facility] Comment on above: Performed By: #### L [id number] ####Cannon Pinion Adjuster: VELMA VALADEZ ([id number])[facility])[address] [place] [address] IDNon 04-13-2024 IDN Normal [facility] - Coagulationon 0 04-13-2024 PT Coag (Bld) [Time] 24.2 s High 9.0 - 1 2.0 s [facility] Nursing Noteon 04-13-2024 Nursing Note AVS explained. Discharged patient on stable condition. Normal [facility] Nursing Note Instructed patient o n warfarin dosing, she will take 7.5mg tomorrow, and 5mg Tuesday, and then we will check INR with home care on Tuesday as instructed. Normal [facility] PROTHROMBIN TIMEon INR Coag (PPP) [Relative time] 2.3 {INR} High 0.9-1.1 [facility] Comment on above: Result Comment: Timothy [...] Myocardial Infarction Performed By: #### L [id number], [id number] ####Cannon Pinion Adjuster: VELMA VALADEZ ([id number])[facility] ([facility])[address] [place] [address] PT Coag (PPP) [Time] 24.2 s High 9.0-12.0 [facility] Comment on above: Performed By: #### L [id number], [id number] ####Cannon Pinion Adjuster: VELMA VALADEZ ([id number])[facility] ([facility])[address] [place] [address] PT Coag (Bld) [Time]on 04-13 INR Coag (PPP) [Relative time] 2.3 {INR} High 0.9 - 1.1 [facility] Comment on above: Recommended Anticoag ulant [...] Interpretation and review of laboratory results Abnormal [facility] Progress Noteon 04-13-2024 Progress Note Normal [facility] Progress Note Normal [facility] Progress Note Normal [facility] aPTT Coag (Bld) [Time]Ordere d By: Melany Tejeda on 04-13-2024 aPTT Coag (PPP) [Time] 132.2 s Critically high 20 .0 - 30.5 s [facility] Interpretation and review of laboratory results Abnormal [facility] NOTE: The therapeuti c time for Heparin anticoagulation, based on Xa activity inhibition, is an APTT of 46-80 seconds. [facility] BASIC METABOLIC PANELon 03-19 Anion gap [Moles/Vol] 3 mmol/L Normal 3-13 [facility] Comment on above: Performed By: #### L [id number] ####Cannon Pinion Adjuster: VELMA VALADEZ ([id number])[facility] ([facility])[address] [place] [address] Calcium [Mass/Vol] 9.3 mg/dL Normal 8.4-10.4 [facility] Comment on above: Performed By: #### L [id number] ####Cannon Pinion Adjuster: VELMA VALADEZ ([id number])[facility] ([facility])[address] [place] [address] [place] Chloride [Moles/Vol] 108 mmol/L High 98-107 [facility] Comment on above: Performed By: #### L [id number] ####Cannon Pinion Adjuster: VELMA VALADEZ ([id number])[facility] ([facility])[address] [place] [address] CO2 [Moles/Vol] 24 mmol/L Normal 22-30 [facility] Comment on above: Performed By: #### L [id number] ####Cannon Pinion Adjuster: VELMA VALADEZ ([id number])[facility] ([facility])[address] [place] [address] Creatinine [Mass/Vol] 0.99 mg/dL Normal 0.52-1.04 [facility] Comment on above: Performed By: #### L [id number] ####Cannon Pinion Adjuster: VELMA VALADEZ ([id number])[facility] ([facility])[address] [place] [address] GLOMERULAR FILTRATION RATE ML/MIN/1.73 SQ M.PREDICTED 56.3 mL/min/1.73m*2 Low >60.0 [facility] Comment on above: Result Comment: Calc ulation based on the Chronic Kidney Disease Epidemiology Collaboration (CKD-EPI) equation refit without adjustment for race Performed By: #### L [id number] ####Cannon Pinion Adjuster: VELMA VALADEZ ([id number])[facility] ([facility])[address] [place] [address] Glucose [Mass/Vol] 101 mg/dL High 70-100 [facility] Comment on above: Performed By: #### L [id number] ####Cannon Pinion Adjuster: VELMA VALADEZ ([id number])[facility] ([facility])[address] [place] [address] Potassium [Moles/Vol] 3.9 mmol/L Normal 3.5-5.1 [facility] Comment on above: Performed By: #### L [id number] ####Cannon Pinion Adjuster: VELMA [id number])[facility] ([facility])[address] [place] [address] [place] Sodium [Moles/Vol] 135 mmol/L Normal 135-145 [facility] Comment on above: Performed By: #### L [id number] ####Cannon Pinion Adjuster: VELMA VALADEZ ([id number])[facility])[address] [place] [address] Urea nitrogen [Mass/Vol] 16 mg/dL Normal 7-17 [facility] Comment on above: Performed By: #### L [id number] ####Cannon Pinion Adjuster: VELMA VALADEZ ([id number])[facility] ([facility])[address] [place] [address] Basic metabolic 1998 panelon 04-12-2024 Anion gap [Moles/Vol] 3 mmol/L 3 - 13 mmol/L [facility] Calcium [Mass/Vol] 9.3 mg/dL 8.4 - 10. 4 mg/dL [facility] Chloride [Moles/Vol] 108 mmol/L High 98 - 10 7 mmol/L [facility] CO2 [Moles/Vol] 24 mmol/L 22 - 30 mmol/L [facility] Creatinine [Mass/Vol] 0.99 mg/dL 0.52 - 1.04 mg/dL [facility] GFR/1.73 sq M.predicted (S/P/Bld) [Vol rate/Area] 56.3 mL/min Low - PINF [facility] Comment on above: Calculation based on the Chronic Kidney Disease Epidemiology Collaboration (CKD-EPI) equation refit without adjustment for race Glucose [Mass/Vol] 101 mg/dL High 70 - 100 mg/dL [facility] Interpretation and review of laboratory results Abnormal [facility] Potassium [Moles/Vol] 3.9 mmol/L 3.5 - 5.1 mmol/L [facility] Sodium [Moles/Vol] 135 mmol/L 135 - 145 mmol/L [facility] Urea nitrogen [Mass/Vol] 16 mg/dL 7 - 17 mg/dL [facility] CARECOORDon 04-12-2024 CARECOORD Normal [facility] CBC W Auto Differential pane l (Bld)on 04-12-2024 Basophils (Bld) [#/Vol] 0.0 10*3/uL 0.0 - 0.2 10*3/uL [facility] Basophils/100 WBC (Bld) 0.5 % 0.0 - 2.0 % [facility] Eosinophils (Bld) [#/Vol] 0.1 10*3/uL 0.0 - 0.5 10*3/uL [facility] Eosinophils/100 WBC (Bld) 2.4 % 0.0 - 6.0 % [facility] Erythrocyte distribution width (RBC) [Ratio] 14.8 % 11.5 - 15.0 % [facility] Hematocrit (Bld) [Volume fraction] 28.3 % Low 35.0 - 47.0 % [facility] Hemoglobin (Bld) [Mass/Vol] 9.3 g/dL Low 11.7 - 16.0 g/dL [facility] Immature granulocytes (Bld) [#/Vol] 0.0 10*3/uL NINF - 0.1 10*3/uL [facility] Immature granulocytes/100 WBC (Bld) 0.2 % 0.0 - 2.0 % [facility] Interpretation and review of laboratory results Abnormal [facility] Lymphocytes (Bld) [#/Vol] 1.4 10*3/uL 1.0 - 4.3 10*3/uL [facility] Lymphocytes/100 WBC (Bld) 33.0 % 15.0 - 45.0 % [facility] MCH (RBC) [Entitic mass] 30.4 pg 26.0 - 34.0 pg [facility] MCHC (RBC) [Mass/Vol] 32.9 % 30.5 - 36.0 % [facility] MCV (RBC) [Entitic vol] 92.5 fL 77.0 - 99.0 fL [facility] Monocytes (Bld) [#/Vol] 0.5 10*3/uL 0.0 - 0.9 10*3/uL [facility] Monocytes/100 WBC (Bld) 11.9 % 5.0 - 13.0 % [facility] Neutrophils (Bld) [#/Vol] 2.1 10*3/uL 1.8 - 7.5 10*3/uL [facility] Neutrophils/100 WBC (Bld) 52.0 % 38.0 - 82.0 % [facility] Nucleated RBC/100 WBC (Bld) [Ratio] 0.0 % [facility] Platelet mean volume (Bld) [Entitic vol] 9.5 fL 9.0 - 12.7 fL [facility] Platelets (Bld) [#/Vol] 307 10*3/uL 140 - 440 10*3/uL [facility] RBC (Bld) [#/Vol] 3.06 10*6/uL Low 3.80 - 5.2 0 10*6/uL [facility] WBC (Bld) [#/Vol] 4.1 10*3/uL 3.6 - 10.7 10*3/uL [facility] CBC WITH AUTO DIFFERENTIALon 04-12-2024 Basophils (Bld) [#/Vol] 0.0 10*3/uL Normal 0.0-0.2 [facility] Comment on above: Performed By: #### L [id number] ####Cannon Pinion Adjuster: VELMA VALADEZ ([phone])[facility] ([facility])[address] [place] [address] Basophils/100 WBC (Bld) 0.5 % Normal 0.0-2.0 [facility] Comment on above: Performed By: #### L [id number] ####Cannon Pinion Adjuster: VELMA VALADEZ ([id number])[facility] ([facility])[address] [place] [address] [place] Eosinophils (Bld) [#/Vol] 0.1 10*3/uL Normal 0.0-0.5 [facility] Comment on above: Performed By: #### L [id number] ####Cannon Pinion Adjuster: VELMA VALADEZ ([id number])[facility] ([facility])[address] [place] [address] [place] Eosinophils/100 WBC (Bld) 2.4 % Normal 0.0-6.0 [facility] Comment on above: Performed By: #### L [id number] ####Cannon Pinion Adjuster: VELMA VALADEZ ([id number])[facility])[address] [place] [address] Erythrocyte distribution width (RBC) [Ratio] 14.8 % Normal 11.5-15.0 [facility] Comment on above: Performed By: #### L [id number] ####Cannon Pinion Adjuster: VELMA VALADEZ ([id number])[facility])[address] [place] [address] Hematocrit (Bld) [Volume fraction] 28.3 % Low 35.0-47.0 [facility] Comment on above: Performed By: #### L [id number] ####Cannon Pinion Adjuster: VELMA VALADEZ ([id number])[facility])[address] [place] [address] Hemoglobin (Bld) [Mass/Vol] 9.3 g/dL Low 11.7-16.0 [facility] Comment on above: Performed By: #### L [id number] ####Cannon Pinion Adjuster: VELMA VALADEZ ([id number])[facility])[address] [place] [address] IMMATURE GRANS % 0.2 % Normal 0.0-2.0 [facility] Comment on above: Performed By: #### L [id number] ####Cannon Pinion Adjuster: VELMA VALADEZ ([id number])[facility])[address] [place] [address] IMMATURE GRANS ABSOLUTE 0.0 10*3/uL Normal <0.1 [facility] Comment on above: Performed By: #### L [id number] ####Cannon Pinion Adjuster: VELMA VALADEZ ([id number])[facility])[address] [place] [address] Lymphocytes (Bld) [#/Vol] 1.4 10*3/uL Normal 1.0-4.3 [facility] Comment on above: Performed By: #### L [id number] ####Cannon Pinion Adjuster: VELMA VALADEZ ([id number])[facility])[address] [place] [address] Lymphocytes/100 WBC (Bld) 33.0 % Normal 15.0-45.0 [facility] Comment on above: Performed By: #### L [id number] ####Cannon Pinion Adjuster: VELMA VALADEZ ([id number])[facility])[address] [place] [address] MCH (RBC) [Entitic mass] 30.4 pg Normal 26.0-34.0 [facility] Comment on above: Performed By: #### L [id number] ####Cannon Pinion Adjuster: VELMA VALADEZ ([id number])[facility])[address] [place] [address] MCHC 32.9 % Normal 30.5-36.0 [facility] Comment on above: Performed By: #### L [id number] ####Cannon Pinion Adjuster: VELMA VALADEZ ([id number])[facility])[address] [place] [address] MCV (RBC) [Entitic vol] 92.5 fL Normal 77.0-99.0 [facility] Comment on above: Performed By: #### L [id number] ####Cannon Pinion Adjuster: VELMA VALADEZ ([id number])[facility])[address] [place] [address] Monocytes (Bld) [#/Vol] 0.5 10*3/uL Normal 0.0-0.9 [facility] Comment on above: Performed By: #### L [id number] ####Cannon Pinion Adjuster: VELMA VALADEZ ([id number])[facility])[address] [place] [address] Monocytes/100 WBC (Bld) 11.9 % Normal 5.0-13.0 [facility] Comment on above: Performed By: #### L [id number] ####Cannon Pinion Adjuster: VELMA VALADEZ ([id number])[facility])[address] [place] [address] NEUTROPHILS ABSOLUTE 2.1 10*3/uL Normal 1.8-7.5 [facility] Comment on above: Performed By: #### L [id number] ####Cannon Pinion Adjuster: VELMA VALADEZ ([id number])[facility])[address] [place] [address] Neutrophils/100 WBC (Bld) 52.0 % Normal 38.0-82.0 [facility] Comment on above: Performed By: #### L [id number] ####Cannon Pinion Adjuster: VELMA VALADEZ ([id number])[facility] ([facility])[address] [place] [address] NRBC 0.0 /100 WBCs Normal 0.0-2.0 [facility] Comment on above: Performed By: #### L [id number] ####Cannon Pinion Adjuster: VELMA VALADEZ ([id number])[facility] ([facility])[address] [place] [address] Platelet mean volume (Bld) [Entitic vol] 9.5 fL Normal 9.0-12.7 [facility] Comment on above: Performed By: #### L [id number] ####Cannon Pinion Adjuster: VELMA VALADEZ ([id number])[facility] ([facility])[address] [place] [address] Platelets (Bld) [#/Vol] 307 10*3/uL Normal 140-440 [facility] Comment on above: Performed By: #### L [id number] ####Cannon Pinion Adjuster: VELMA VALADEZ ([id number])[facility] ([facility])[address] [place] [address] RBC (Bld) [#/Vol] 3.06 10*6/uL Low 3.80-5.20 [facility] Comment on above: Performed By: #### L [id number] ####Cannon Pinion Adjuster: VELMA VALADEZ ([id number])[facility] ([facility])[address] [place] [address] WBC (Bld) [#/Vol] 4.1 10*3/uL Normal 3.6-10.7 [facility] Comment on above: Performed By: #### L [id number] ####Cannon Pinion Adjuster: VELMA VALADEZ ([id number])[facility])[address] [place] [address] IDNon 04-12-2024 IDN Normal [facility] IDN Normal [facility] - Coagulationon 0 04-12-2024 PT Coag (Bld) [Time] 20.3 s High 9.0 - 1 2.0 s [facility] PROTHROMBIN TIMEon INR Coag (PPP) [Relative time] 1.9 {INR} High 0.9-1.1 [facility] Comment on above: Result Comment: Timothy [...] Myocardial Infarction Performed By: #### L [id number] ####Cannon Pinion Adjuster: VELMA VALADEZ ([id number])[facility] ([facility])[address] [place] [address] PT Coag (PPP) [Time] 20.3 s High 9.0-12.0 [facility] [facility] Comment on above: Performed By: #### [place] [id number] ####Cannon Pinion Adjuster: VELMA VALADEZ ([id number])[facility] ([facility])[address] [place] [address] [place] PT Coag (Bld) [Time]on 04-12 INR Coag (PPP) [Relative time] 1.9 {INR} High 0.9 - 1.1 [facility] Comment on above: Recommended Anticoag ulant [...] Interpretation and review of laboratory results Abnormal [facility] Progress Noteon 04-12-2024 Progress Note Normal [facility] Progress Note Normal [facility] APTTon 04-11-2024 aPTT Coag (Bld) [Time] 62.7 s High 20.0-30.5 [facility] Comment on above: Result Comment: BUBBA Garcia COMMENTS:NOTE: The therapeutic time for Heparin anticoagulation, based on Xa activity inhibition, is an APTT of 46-80 seconds. Performed By: #### L [id number] ####Cannon Pinion Adjuster: VELMA VALADEZ ([phone])[facility] ([facility])[address] [place] [address] aPTT Coag (Bld) [Time] 69.0 s High 20.0-30.5 [facility] Comment on above: Result Comment: BUBBA Garcia COMMENTS:NOTE: The therapeutic time for Heparin anticoagulation, based on Xa activity inhibition, is an APTT of 46-80 seconds. Performed By: #### L AB320, [id number] ####Cannon Pinion Adjuster: VELMA VALADEZ ([id number])[facility] ([facility])[address] [place] [address] BASIC METABOLIC PANELon 09-2 Anion gap [Moles/Vol] 4 mmol/L Normal 3-13 [facility] Comment on above: Performed By: #### L AB15 ####Cannon Pinion Adjuster: VELMA VALADEZ ([id number])[facility] ([facility])[address] [place] [address] Calcium [Mass/Vol] 8.8 mg/dL Normal 8.4-10.4 [facility] Comment on above: Performed By: #### L AB15 ####Cannon Pinion Adjuster: VELMA VALADEZ ([id number])[facility] ([facility])[address] [place] [address] [place] Chloride [Moles/Vol] 108 mmol/L High 98-107 [facility] Comment on above: Performed By: #### L AB15 ####Cannon Pinion Adjuster: VELMA [id number])[facility] ([facility])[address] [place] [address] CO2 [Moles/Vol] 22 mmol/L Normal 22-30 [facility] Comment on above: Performed By: #### L AB15 ####Cannon Pinion Adjuster: VELMA VALADEZ ([id number])[facility] [place] [address] Creatinine [Mass/Vol] 1.01 mg/dL Normal 0.52-1.04 [facility] Comment on above: Performed By: #### L AB15 ####Cannon Pinion Adjuster: VELMA VALADEZ ([id number])[facility] [place] [address] GLOMERULAR FILTRATION RATE ML/MIN/1.73 SQ M.PREDICTED 55.0 mL/min/1.73m*2 Low >60.0 [facility] Comment on above: Result Comment: Calc ulation based on the Chronic Kidney Disease Epidemiology Collaboration (CKD-EPI) equation refit without adjustment for race Performed By: #### L AB15 ####Cannon Pinion Adjuster: VELMA VALADEZ ([id number])[facility] [place] [address] Glucose [Mass/Vol] 112 mg/dL High 70-100 [facility] Comment on above: Performed By: #### L AB15 ####Cannon Pinion Adjuster: VELMA VALADEZ ([id number])[facility] [place] [address] Potassium [Moles/Vol] 4.0 mmol/L Normal 3.5-5.1 [facility] Comment on above: Performed By: #### L AB15 ####Cannon Pinion Adjuster: VELMA VALADEZ ([id number])[facility] [place] [address] [place] Sodium [Moles/Vol] 134 mmol/L Low 135-145 [facility] Comment on above: Performed By: #### L AB15 ####Cannon Pinion Adjuster: VELMA VALADEZ ([id number])[facility] ([facility])[address] [place] [address] Urea nitrogen [Mass/Vol] 16 mg/dL Normal 7-17 [facility] Comment on above: Performed By: #### L AB15 ####Cannon Pinion Adjuster: VELMA VALADEZ ([id number])[facility] ([facility])[address] [place] [address] Basic metabolic 1998 panelon 04-11-2024 Anion gap [Moles/Vol] 4 mmol/L 3 - 13 mmol/L [facility] Calcium [Mass/Vol] 8.8 mg/dL 8.4 - 10. 4 mg/dL [facility] Chloride [Moles/Vol] 108 mmol/L High 98 - 10 7 mmol/L [facility] CO2 [Moles/Vol] 22 mmol/L 22 - 30 mmol/L [facility] Creatinine [Mass/Vol] 1.01 mg/dL 0.52 - 1.04 mg/dL [facility] GFR/1.73 sq M.predicted (S/P/Bld) [Vol rate/Area] 55.0 mL/min Low - PINF [facility] Comment on above: Calculation based on the Chronic Kidney Disease Epidemiology Collaboration (CKD-EPI) equation refit without adjustment for race Glucose [Mass/Vol] 112 mg/dL High 70 - 100 mg/dL [facility] Interpretation and review of laboratory results Abnormal [facility] Potassium [Moles/Vol] 4.0 mmol/L 3.5 - 5.1 mmol/L [facility] Sodium [Moles/Vol] 134 mmol/L Low 135 - 145 mmol/L [facility] Urea nitrogen [Mass/Vol] 16 mg/dL 7 - 17 mg/dL [facility] CARECOORDon 04-11-2024 CARECOORD Normal [facility] CBC W Auto Differential pane l (Bld)on 04-11-2024 Basophils (Bld) [#/Vol] 0.0 10*3/uL 0.0 - 0.2 10*3/uL [facility] Basophils/100 WBC (Bld) 0.9 % 0.0 - 2.0 % [facility] Eosinophils (Bld) [#/Vol] 0.1 10*3/uL 0.0 - 0.5 10*3/uL [facility] Eosinophils/100 WBC (Bld) 2.0 % 0.0 - 6.0 % [facility] Erythrocyte distribution width (RBC) [Ratio] 14.8 % 11.5 - 15.0 % [facility] Hematocrit (Bld) [Volume fraction] 24.6 % Low 35.0 - 47.0 % [facility] Hemoglobin (Bld) [Mass/Vol] 8.3 g/dL Low 11.7 - 16.0 g/dL [facility] [employer] Immature granulocytes (Bld) [#/Vol] 0.0 10*3/uL NINF - 0.1 10*3/uL [facility] [employer] Immature granulocytes/100 WBC (Bld) 0.2 % 0.0 - 2.0 % [facility] Interpretation and review of laboratory results Abnormal [facility] Lymphocytes (Bld) [#/Vol] 1.4 10*3/uL 1.0 - 4.3 10*3/uL [facility] Lymphocytes/100 WBC (Bld) 31.9 % 15.0 - 45.0 % [facility] MCH (RBC) [Entitic mass] 30.5 pg 26.0 - 34.0 pg [facility] MCHC (RBC) [Mass/Vol] 33.7 % 30.5 - 36.0 % [facility] MCV (RBC) [Entitic vol] 90.4 fL 77.0 - 99.0 fL [facility] Monocytes (Bld) [#/Vol] 0.5 10*3/uL 0.0 - 0.9 10*3/uL [facility] Monocytes/100 WBC (Bld) 11.2 % 5.0 - 13.0 % [facility] Neutrophils (Bld) [#/Vol] 2.4 10*3/uL 1.8 - 7.5 10*3/uL [facility] Neutrophils/100 WBC (Bld) 53.8 % 38.0 - 82.0 % [facility] Nucleated RBC/100 WBC (Bld) [Ratio] 0.0 % [facility] Platelet mean volume (Bld) [Entitic vol] 10.0 fL 9.0 - 12.7 fL [facility] Platelets (Bld) [#/Vol] 244 10*3/uL 140 - 440 10*3/uL [facility] RBC (Bld) [#/Vol] 2.72 10*6/uL Low 3.80 - 5.2 0 10*6/uL [facility] WBC (Bld) [#/Vol] 4.5 10*3/uL 3.6 - 10.7 10*3/uL [facility] CBC WITH AUTO DIFFERENTIALon 04-11-2024 Basophils (Bld) [#/Vol] 0.0 10*3/uL Normal 0.0-0.2 [facility] Comment on above: Performed By: #### L [id number] ####Cannon Pinion Adjuster: VELMA VALADEZ ([phone])[facility])[address] [place] [address] Basophils/100 WBC (Bld) 0.9 % Normal 0.0-2.0 [facility] Comment on above: Performed By: #### L [id number] ####Cannon Pinion Adjuster: VELMA VALADEZ ([id number])[facility])[address] [place] [address] Eosinophils (Bld) [#/Vol] 0.1 10*3/uL Normal 0.0-0.5 [facility] Comment on above: Performed By: #### L [id number] ####Cannon Pinion Adjuster: VELMA VALADEZ ([id number])[facility])[address] [place] [address] Eosinophils/100 WBC (Bld) 2.0 % Normal 0.0-6.0 [facility] Comment on above: Performed By: #### L [id number] ####Cannon Pinion Adjuster: VELMA VALADEZ ([id number])[facility])[address] [place] [address] Erythrocyte distribution width (RBC) [Ratio] 14.8 % Normal 11.5-15.0 [facility] Comment on above: Performed By: #### L [id number] ####Cannon Pinion Adjuster: VELMA VALADEZ ([id number])[facility])[address] [place] [address] Hematocrit (Bld) [Volume fraction] 24.6 % Low 35.0-47.0 [facility] Comment on above: Performed By: #### L [id number] ####Cannon Pinion Adjuster: VELMA VALADEZ ([id number])[facility])[address] [place] [address] Hemoglobin (Bld) [Mass/Vol] 8.3 g/dL Low 11.7-16.0 [facility] Comment on above: Performed By: #### L [id number] ####Cannon Pinion Adjuster: VELMA VALADEZ ([phone])[facility])[address] [place] [address] IMMATURE GRANS % 0.2 % Normal 0.0-2.0 [facility] Comment on above: Performed By: #### L [id number] ####Cannon Pinion Adjuster: VELMA VALADEZ ([id number])[facility])[address] [place] [address] IMMATURE GRANS ABSOLUTE 0.0 10*3/uL Normal <0.1 [facility] Comment on above: Performed By: #### L [id number] ####Cannon Pinion Adjuster: VELMA VALADEZ ([id number])[facility])[address] [place] [address] Lymphocytes (Bld) [#/Vol] 1.4 10*3/uL Normal 1.0-4.3 [facility] Comment on above: Performed By: #### L [id number] ####Cannon Pinion Adjuster: VELMA VALADEZ ([id number])[facility])[address] [place] [address] Lymphocytes/100 WBC (Bld) 31.9 % Normal 15.0-45.0 [facility] Comment on above: Performed By: #### L [id number] ####Cannon Pinion Adjuster: VELMA VALADEZ ([phone])[facility])[address] [place] [address] MCH (RBC) [Entitic mass] 30.5 pg Normal 26.0-34.0 [facility] Comment on above: Performed By: #### L [id number] ####Cannon Pinion Adjuster: VELMA VALADEZ ([id number])[facility])[address] [place] [address] MCHC 33.7 % Normal 30.5-36.0 [facility] Comment on above: Performed By: #### L [id number] ####Cannon Pinion Adjuster: VELMA VALADEZ ([id number])[facility])[address] [place] [address] MCV (RBC) [Entitic vol] 90.4 fL Normal 77.0-99.0 [facility] Comment on above: Performed By: #### L [id number] ####Cannon Pinion Adjuster: VELMA VALADEZ ([id number])[facility] ([facility])[address] [place] [address] Monocytes (Bld) [#/Vol] 0.5 10*3/uL Normal 0.0-0.9 [facility] Comment on above: Performed By: #### L [id number] ####Cannon Pinion Adjuster: VELMA VALADEZ ([id number])[facility] ([facility])[address] [place] [address] Monocytes/100 WBC (Bld) 11.2 % Normal 5.0-13.0 [facility] Comment on above: Performed By: #### L [id number] ####Cannon Pinion Adjuster: VELMA VALADEZ ([id number])[facility] ([facility])[address] [place] [address] NEUTROPHILS ABSOLUTE 2.4 10*3/uL Normal 1.8-7.5 [facility] Comment on above: Performed By: #### L [id number] ####Cannon Pinion Adjuster: VELMA VALADEZ ([id number])[facility] ([facility])[address] [place] [address] Neutrophils/100 WBC (Bld) 53.8 % Normal 38.0-82.0 [facility] Comment on above: Performed By: #### L [id number] ####Cannon Pinion Adjuster: VELMA VALADEZ ([id number])[facility] ([facility])[address] [place] [address] [place] NRBC 0.0 /100 WBCs Normal 0.0-2.0 [facility] Comment on above: Performed By: #### L [id number] ####Cannon Pinion Adjuster: VELMA VALADEZ ([id number])[facility] ([facility])[address] [place] [address] Platelet mean volume (Bld) [Entitic vol] 10.0 fL Normal 9.0-12.7 [facility] Comment on above: Performed By: #### L [id number] ####Cannon Pinion Adjuster: VELMA VALADEZ ([id number])[facility])[address] [place] [address] Platelets (Bld) [#/Vol] 244 10*3/uL Normal 140-440 [facility] Comment on above: Performed By: #### L [id number] ####Cannon Pinion Adjuster: VELMA VALADEZ ([id number])[facility] ([facility])[address] [place] [address] RBC (Bld) [#/Vol] 2.72 10*6/uL Low 3.80-5.20 [facility] Comment on above: Performed By: #### L [id number] ####Cannon Pinion Adjuster: VELMA VALADEZ ([id number])[facility])[address] [place] [address] WBC (Bld) [#/Vol] 4.5 10*3/uL Normal 3.6-10.7 [facility] Comment on above: Performed By: #### L [id number] ####Cannon Pinion Adjuster: VELMA VALADEZ ([id number])[facility])[address] [place] [address] IDNon 04-11-2024 IDN Normal [facility] IDN Normal [facility] - Coagulationon 0 04-11-2024 PT Coag (Bld) [Time] 20.9 s High 9.0 - 1 2.0 s [facility] No Panel Informationon 04-11 Interpretation and review of laboratory results Abnormal [facility] PROTHROMBIN TIMEon INR Coag (PPP) [Relative time] 1.9 {INR} High 0.9-1.1 [facility] Comment on above: Result Comment: Timothy [...] Myocardial Infarction Performed By: #### L [id number], [id number] ####Cannon Pinion Adjuster: VELMA VALADEZ ([id number])[facility] ([facility])[address] [place] [address] PT Coag (PPP) [Time] 20.9 s High 9.0-12.0 [facility] Comment on above: Performed By: #### L [id number], [id number] ####Cannon Pinion Adjuster: VELMA VALADEZ ([id number])[facility] [place] [address] PT Coag (Bld) [Time]on 04-11 INR Coag (PPP) [Relative time] 1.9 {INR} High 0.9 - 1.1 [facility] Comment on above: Recommended Anticoag ulant [...] Infarction Progress Noteon 04-11-2024 Progress Note Normal [facility] Progress Note Normal [facility] Progress Note Normal [facility] Progress Note Normal [facility] aPTT Coag (Bld) [Time]on aPTT Coag (PPP) [Time] 62.7 s High 20.0 - 30.5 s [facility] Interpretation and review of laboratory results Abnormal [facility] NOTE: The therapeuti c time for Heparin anticoagulation, based on Xa activity inhibition, is an APTT of 46-80 seconds. [facility] aPTT Coag (PPP) [Time] 69.0 s High 20.0 - 30.5 s [facility] NOTE: The therapeuti c time for Heparin anticoagulation, based on Xa activity inhibition, is an APTT of 46-80 seconds. [facility] APTTon 04-10-2024 aPTT Coag (Bld) [Time] 59.0 s High 20.0-30.5 [facility] Comment on above: Result Comment: BUBBA Garcia COMMENTS:NOTE: The therapeutic time for Heparin anticoagulation, based on Xa activity inhibition, is an APTT of 46-80 seconds. Performed By: #### L [id number] ####Cannon Pinion Adjuster: VELMA VALADEZ ([id number])[facility])[address] [place] [address] aPTT Coag (Bld) [Time] 77.3 s High 20.0-30.5 [facility] Comment on above: Result Comment: BUBBA Garcia COMMENTS:NOTE: The therapeutic time for Heparin anticoagulation, based on Xa activity inhibition, is an APTT of 46-80 seconds. Performed By: #### L AB325, [id number] ####Cannon Pinion Adjuster: VELMA VALADEZ ([id number])[facility])[address] [place] [address] BASIC METABOLIC PANELon 03-19 Anion gap [Moles/Vol] 3 mmol/L Normal 3-13 [facility] Comment on above: Performed By: #### L AB15 ####Cannon Pinion Adjuster: VELMA VALADEZ ([id number])[facility])[address] [place] [address] Calcium [Mass/Vol] 9.0 mg/dL Normal 8.4-10.4 [facility] Comment on above: Performed By: #### L AB15 ####Cannon Pinion Adjuster: VELMA VALADEZ ([phone])[facility] ([facility])[address] [place] [address] [place] Chloride [Moles/Vol] 111 mmol/L High 98-107 [facility] Comment on above: Performed By: #### L AB15 ####Cannon Pinion Adjuster: VELMA VALADEZ ([id number])[facility])[address] [place] [address] [place] CO2 [Moles/Vol] 21 mmol/L Low 22-30 [facility] Comment on above: Performed By: #### L AB15 ####Cannon Pinion Adjuster: VELMA VALADEZ ([id number])[facility])[address] [place] [address] Creatinine [Mass/Vol] 1.00 mg/dL Normal 0.52-1.04 [facility] Comment on above: Performed By: #### L AB15 ####Cannon Pinion Adjuster: VELMA VALADEZ ([id number])[facility])[address] [place] [address] GLOMERULAR FILTRATION RATE ML/MIN/1.73 SQ M.PREDICTED 55.7 mL/min/1.73m*2 Low >60.0 [facility] Comment on above: Result Comment: Calc ulation based on the Chronic Kidney Disease Epidemiology Collaboration (CKD-EPI) equation refit without adjustment for race Performed By: #### L AB15 ####Cannon Pinion Adjuster: VELMA VALADEZ ([phone])[facility] ([facility])[address] [place] [address] Glucose [Mass/Vol] 101 mg/dL High 70-100 [facility] Comment on above: Performed By: #### L AB15 ####Cannon Pinion Adjuster: VELMA VALADEZ ([id number])[facility])[address] [place] [address] Potassium [Moles/Vol] 3.8 mmol/L Normal 3.5-5.1 [facility] Comment on above: Performed By: #### L AB15 ####Cannon Pinion Adjuster: VELMA VALADEZ ([id number])[facility])[address] [place] [address] [place] Sodium [Moles/Vol] 136 mmol/L Normal 135-145 [facility] Comment on above: Performed By: #### L AB15 ####Cannon Pinion Adjuster: VELMA VALADEZ ([phone])[facility])[address] [place] [address] [place] Urea nitrogen [Mass/Vol] 15 mg/dL Normal 7-17 [facility] Comment on above: Performed By: #### L AB15 ####Cannon Pinion Adjuster: VELMA VALADEZ ([id number])[facility] ([facility] Basic metabolic 1998 panelon 04-10-2024 Anion gap [Moles/Vol] 3 mmol/L 3 - 13 mmol/L [facility] Calcium [Mass/Vol] 9.0 mg/dL 8.4 - 10. 4 mg/dL [facility] Chloride [Moles/Vol] 111 mmol/L High 98 - 10 7 mmol/L [facility] CO2 [Moles/Vol] 21 mmol/L Low 22 - 30 mmol/L [facility] Creatinine [Mass/Vol] 1.00 mg/dL 0.52 - 1.04 mg/dL [facility] GFR/1.73 sq M.predicted (S/P/Bld) [Vol rate/Area] 55.7 mL/min Low - PINF [facility] Comment on above: Calculation based on the Chronic Kidney Disease Epidemiology Collaboration (CKD-EPI) equation refit without adjustment for race Glucose [Mass/Vol] 101 mg/dL High 70 - 100 mg/dL [facility] Interpretation and review of laboratory results Abnormal [facility] Potassium [Moles/Vol] 3.8 mmol/L 3.5 - 5.1 mmol/L [facility] Sodium [Moles/Vol] 136 mmol/L 135 - 145 mmol/L [facility] Urea nitrogen [Mass/Vol] 15 mg/dL 7 - 17 mg/dL [facility] CARECOORDon 04-10-2024 CARECOORD Normal [facility] CBC W Auto Differential pane l (Bld)on 04-10-2024 Basophils (Bld) [#/Vol] 0.0 10*3/uL 0.0 - 0.2 10*3/uL [facility] Basophils/100 WBC (Bld) 0.7 % 0.0 - 2.0 % [facility] Eosinophils (Bld) [#/Vol] 0.1 10*3/uL 0.0 - 0.5 10*3/uL [facility] Eosinophils/100 WBC (Bld) 2.1 % 0.0 - 6.0 % [facility] Erythrocyte distribution width (RBC) [Ratio] 14.7 % 11.5 - 15.0 % [facility] Hematocrit (Bld) [Volume fraction] 26.0 % Low 35.0 - 47.0 % [facility] Hemoglobin (Bld) [Mass/Vol] 8.6 g/dL Low 11.7 - 16.0 g/dL [facility] Immature granulocytes (Bld) [#/Vol] 0.0 10*3/uL NINF - 0.1 10*3/uL [facility] Immature granulocytes/100 WBC (Bld) 0.2 % 0.0 - 2.0 % [facility] Interpretation and review of laboratory results Abnormal [facility] Lymphocytes (Bld) [#/Vol] 1.4 10*3/uL 1.0 - 4.3 10*3/uL [facility] Lymphocytes/100 WBC (Bld) 32.9 % 15.0 - 45.0 % [facility] MCH (RBC) [Entitic mass] 30.1 pg 26.0 - 34.0 pg [facility] MCHC (RBC) [Mass/Vol] 33.1 % 30.5 - 36.0 % [facility] MCV (RBC) [Entitic vol] 90.9 fL 77.0 - 99.0 fL [facility] Monocytes (Bld) [#/Vol] 0.6 10*3/uL 0.0 - 0.9 10*3/uL [facility] Monocytes/100 WBC (Bld) 13.6 % High 5.0 - 13.0 % [facility] Neutrophils (Bld) [#/Vol] 2.1 10*3/uL 1.8 - 7.5 10*3/uL [facility] Neutrophils/100 WBC (Bld) 50.5 % 38.0 - 82.0 % [facility] Nucleated RBC/100 WBC (Bld) [Ratio] 0.0 % [facility] [employer] Platelet mean volume (Bld) [Entitic vol] 10.0 fL 9.0 - 12.7 fL [facility] Platelets (Bld) [#/Vol] 238 10*3/uL 140 - 440 10*3/uL [facility] RBC (Bld) [#/Vol] 2.86 10*6/uL Low 3.80 - 5.2 0 10*6/uL [facility] WBC (Bld) [#/Vol] 4.3 10*3/uL 3.6 - 10.7 10*3/uL [facility] CBC WITH AUTO DIFFERENTIALon 04-10-2024 Basophils (Bld) [#/Vol] 0.0 10*3/uL Normal 0.0-0.2 [facility] Comment on above: Performed By: #### L [id number] ####Cannon Pinion Adjuster: VELMA VALADEZ ([phone])[facility])[address] [place] [address] Basophils/100 WBC (Bld) 0.7 % Normal 0.0-2.0 [facility] Comment on above: Performed By: #### L [id number] ####Cannon Pinion Adjuster: VELMA VALADEZ ([id number])[facility])[address] [place] [address] Eosinophils (Bld) [#/Vol] 0.1 10*3/uL Normal 0.0-0.5 [facility] Comment on above: Performed By: #### L [id number] ####Cannon Pinion Adjuster: VELMA VALADEZ ([id number])[facility] ([facility])[address] [place] [address] Eosinophils/100 WBC (Bld) 2.1 % Normal 0.0-6.0 [facility] Comment on above: Performed By: #### L [id number] ####Cannon Pinion Adjuster: VELMA VALADEZ ([id number])[facility])[address] [place] [address] Erythrocyte distribution width (RBC) [Ratio] 14.7 % Normal 11.5-15.0 [facility] Comment on above: Performed By: #### L [id number] ####Cannon Pinion Adjuster: VELMA VALADEZ ([id number])[facility])[address] [place] [address] Hematocrit (Bld) [Volume fraction] 26.0 % Low 35.0-47.0 [facility] Comment on above: Performed By: #### L [id number] ####Cannon Pinion Adjuster: VELMA [id number])[facility] [address] Hemoglobin (Bld) [Mass/Vol] 8.6 g/dL Low 11.7-16.0 [facility] Comment on above: Performed By: #### L [id number] ####Cannon Pinion Adjuster: VELMA VALADEZ ([id number])[facility])[address] [place] [address] IMMATURE GRANS % 0.2 % Normal 0.0-2.0 [facility] Comment on above: Performed By: #### L [id number] ####Cannon Pinion Adjuster: VELMA VALADEZ ([id number])[address] IMMATURE GRANS ABSOLUTE 0.0 10*3/uL Normal <0.1 [facility] Comment on above: Performed By: #### L [id number] ####Cannon Pinion Adjuster: VELMA VALADEZ ([id number])[facility])[address] [place] [address] Lymphocytes (Bld) [#/Vol] 1.4 10*3/uL Normal 1.0-4.3 [facility] Comment on above: Performed By: #### L [id number] ####Cannon Pinion Adjuster: VELMA VALADEZ ([id number])[facility])[address] [place] [address] Lymphocytes/100 WBC (Bld) 32.9 % Normal 15.0-45.0 [facility] Comment on above: Performed By: #### L [id number] ####Cannon Pinion Adjuster: VELMA VALADEZ ([id number])[facility])[address] [place] [address] MCH (RBC) [Entitic mass] 30.1 pg Normal 26.0-34.0 [facility] Comment on above: Performed By: #### L [id number] ####Cannon Pinion Adjuster: VELMA VALADEZ ([id number])[facility])[address] [place] [address] MCHC 33.1 % Normal 30.5-36.0 [facility] Comment on above: Performed By: #### L [id number] ####Cannon Pinion Adjuster: VELMA VALADEZ ([id number])[facility] ([facility])[address] [place] [address] MCV (RBC) [Entitic vol] 90.9 fL Normal 77.0-99.0 [facility] Comment on above: Performed By: #### L [id number] ####Cannon Pinion Adjuster: VELMA VALADEZ ([id number])[facility] ([facility])[address] [place] [address] Monocytes (Bld) [#/Vol] 0.6 10*3/uL Normal 0.0-0.9 [facility] Comment on above: Performed By: #### L [id number] ####Cannon Pinion Adjuster: VELMA VALADEZ ([id number])[facility])[address] [place] [address] Monocytes/100 WBC (Bld) 13.6 % High 5.0-13.0 [facility] Comment on above: Performed By: #### L [id number] ####Cannon Pinion Adjuster: VELMA VALADEZ ([id number])[facility] ([facility])[address] [place] [address] NEUTROPHILS ABSOLUTE 2.1 10*3/uL Normal 1.8-7.5 [facility] Comment on above: Performed By: #### L [id number] ####Cannon Pinion Adjuster: VELMA VALADEZ ([id number])[facility])[address] [place] [address] Neutrophils/100 WBC (Bld) 50.5 % Normal 38.0-82.0 [facility] Comment on above: Performed By: #### L [id number] ####Cannon Pinion Adjuster: VELMA VALADEZ ([id number])[facility])[address] [place] [address] NRBC 0.0 /100 WBCs Normal 0.0-2.0 [facility] Comment on above: Performed By: #### L [id number] ####Cannon Pinion Adjuster: VELMA VALADEZ ([id number])[facility] ([facility])[address] [place] [address] Platelet mean volume (Bld) [Entitic vol] 10.0 fL Normal 9.0-12.7 [facility] Comment on above: Performed By: #### L [id number] ####Cannon Pinion Adjuster: VELMA VALADEZ ([id number])[facility] ([facility])[address] [place] [address] Platelets (Bld) [#/Vol] 238 10*3/uL Normal 140-440 [facility] Comment on above: Performed By: #### L [id number] ####Cannon Pinion Adjuster: VELMA VALADEZ ([id number])[facility] ([facility])[address] [place] [address] RBC (Bld) [#/Vol] 2.86 10*6/uL Low 3.80-5.20 [facility] Comment on above: Performed By: #### L [id number] ####Cannon Pinion Adjuster: VELMA VALADEZ ([id number])[facility] ([facility])[address] [place] [address] WBC (Bld) [#/Vol] 4.3 10*3/uL Normal 3.6-10.7 [facility] Comment on above: Performed By: #### L [id number] ####Cannon Pinion Adjuster: VELMA VALADEZ ([id number])[facility] ([facility])[address] [place] [address] IDNon 04-10-2024 IDN Normal [facility] - Coagulationon 0 04-10-2024 PT Coag (Bld) [Time] 17.7 s High 9.0 - 1 2.0 s [facility] No Panel Informationon 04-10 Interpretation and review of laboratory results Abnormal [facility] PROTHROMBIN TIMEon INR Coag (PPP) [Relative time] 1.6 {INR} High 0.9-1.1 [facility] Comment on above: Result Comment: Timothy [...] Myocardial Infarction Performed By: #### Weston AB325, [id number] ####Cannon Pinion Adjuster: VELMA VALADEZ ([id number])[facility])[address] [place] [address] PT Coag (PPP) [Time] 17.7 s High 9.0-12.0 [facility] [employer] [facility] Comment on above: Performed By: #### Weston AB325, [id number] ####Cannon Pinion Adjuster: VELMA VALADEZ ([id number])[facility] ([address] PT Coag (Bld) [Time]on 04-10 INR Coag (PPP) [Relative time] 1.6 {INR} High 0.9 - 1.1 [facility] Comment on above: Recommended Anticoag ulant [...] Infarction Progress Noteon 04-10-2024 Progress Note Normal [facility] Progress Note Nutrition update completed. Chart reviewed. Patient to be monitored and followed by the diet graphics edit technician. Jessica Doran, KEITH Normal [facility] Progress Note Normal [facility] aPTT Coag (Bld) [Time]on aPTT Coag (PPP) [Time] 59.0 s High 20.0 - 30.5 s [facility] Interpretation and review of laboratory results Abnormal [facility] NOTE: The therapeuti c time for Heparin anticoagulation, based on Xa activity inhibition, is an APTT of 46-80 seconds. [facility] aPTT Coag (PPP) [Time] 77.3 s High 20.0 - 30.5 s [facility] NOTE: The therapeuti c time for Heparin anticoagulation, based on Xa activity inhibition, is an APTT of 46-80 seconds. [facility] APTTon 04-09-2024 aPTT Coag (Bld) [Time] 58.9 s High 20.0-30.5 [facility] Comment on above: Result Comment: BUBBA Garcia COMMENTS:NOTE: The therapeutic time for Heparin anticoagulation, based on Xa activity inhibition, is an APTT of 46-80 seconds. Performed By: #### L [id number] ####Cannon Pinion Adjuster: VELMA VALADEZ ([id number])[address] aPTT Coag (Bld) [Time] 64.6 s High 20.0-30.5 [facility] Comment on above: Result Comment: BUBBA Garcia COMMENTS:NOTE: The therapeutic time for Heparin anticoagulation, based on Xa activity inhibition, is an APTT of 46-80 seconds. Performed By: #### L [id number] ####Cannon Pinion Adjuster: VELMA VALADEZ ([id number])[address] aPTT Coag (Bld) [Time] 82.3 s High 20.0-30.5 [facility] Comment on above: Result Comment: BUBBA Garcia COMMENTS:NOTE: The therapeutic time for Heparin anticoagulation, based on Xa activity inhibition, is an APTT of 46-80 seconds. Performed By: #### L [id number], [id number] ####Cannon Pinion Adjuster: VELMA VALADEZ ([id number])[facility] ([facility])[address] [place] [address] BASIC METABOLIC PANELon 03-19 Anion gap [Moles/Vol] 5 mmol/L Normal 3-13 [facility] Comment on above: Performed By: #### L [id number] ####Cannon Pinion Adjuster: VELMA [id number])[facility])[address] [place] [address] Calcium [Mass/Vol] 8.9 mg/dL Normal 8.4-10.4 [facility] Comment on above: Performed By: #### L AB15 ####Cannon Pinion Adjuster: VELMA VALADEZ ([id number])[facility] [place] [address] Chloride [Moles/Vol] 116 mmol/L High 98-107 [facility] Comment on above: Performed By: #### L AB15 ####Cannon Pinion Adjuster: VELMA VALADEZ ([id number])[facility] [place] [address] CO2 [Moles/Vol] 16 mmol/L Low 22-30 [facility] Comment on above: Performed By: #### L AB15 ####Cannon Pinion Adjuster: VELMA VALADEZ ([id number])[facility] ([facility])[address] [place] [address] Creatinine [Mass/Vol] 0.93 mg/dL Normal 0.52-1.04 [facility] Comment on above: Performed By: #### L AB15 ####Cannon Pinion Adjuster: VELMA VALADEZ ([id number])[facility] ([facility])[address] [place] [address] GLOMERULAR FILTRATION RATE ML/MIN/1.73 SQ M.PREDICTED 60.7 mL/min/1.73m*2 Normal >60.0 [facility] Comment on above: Result Comment: Calc ulation based on the Chronic Kidney Disease Epidemiology Collaboration (CKD-EPI) equation refit without adjustment for race Performed By: #### L AB15 ####Cannon Pinion Adjuster: VELMA VALADEZ ([id number])[facility] ([facility])[address] [place] [address] [place] Glucose [Mass/Vol] 119 mg/dL High 70-100 [facility] Comment on above: Performed By: #### L AB15 ####Cannon Pinion Adjuster: VELMA VALADEZ ([id number])[facility] ([facility])[address] [place] [address] [place] Potassium [Moles/Vol] 4.4 mmol/L Normal 3.5-5.1 [facility] Comment on above: Performed By: #### L AB15 ####Cannon Pinion Adjuster: VELMA VALADEZ ([id number])[facility] ([facility])[address] [place] [address] Sodium [Moles/Vol] 136 mmol/L Normal 135-145 [facility] Comment on above: Performed By: #### L AB15 ####Cannon Pinion Adjuster: VELMA VALADEZ ([id number])[facility] ([facility])[address] [place] [address] Urea nitrogen [Mass/Vol] 16 mg/dL Normal 7-17 [facility] Comment on above: Performed By: #### L AB15 ####Cannon Pinion Adjuster: VELMA VALADEZ ([id number])[facility] ([facility])[address] [place] [address] Basic metabolic 1998 panelon 04-09-2024 Anion gap [Moles/Vol] 5 mmol/L 3 - 13 mmol/L [facility] Calcium [Mass/Vol] 8.9 mg/dL 8.4 - 10. 4 mg/dL [facility] Chloride [Moles/Vol] 116 mmol/L High 98 - 10 7 mmol/L [facility] CO2 [Moles/Vol] 16 mmol/L Low 22 - 30 mmol/L [facility] Creatinine [Mass/Vol] 0.93 mg/dL 0.52 - 1.04 mg/dL [facility] GFR/1.73 sq M.predicted (S/P/Bld) [Vol rate/Area] 60.7 mL/min - PINF [facility] Comment on above: Calculation based on the Chronic Kidney Disease Epidemiology Collaboration (CKD-EPI) equation refit without adjustment for race Glucose [Mass/Vol] 119 mg/dL High 70 - 100 mg/dL [facility] Interpretation and review of laboratory results Abnormal [facility] Potassium [Moles/Vol] 4.4 mmol/L 3.5 - 5.1 mmol/L [facility] Sodium [Moles/Vol] 136 mmol/L 135 - 145 mmol/L [facility] Urea nitrogen [Mass/Vol] 16 mg/dL 7 - 17 mg/dL [facility] CARECOORDon 04-09-2024 CARECOORD Normal [facility] CBC W Auto Differential pane l (Bld)on 04-09-2024 Basophils (Bld) [#/Vol] 0.0 10*3/uL 0.0 - 0.2 10*3/uL [facility] Basophils/100 WBC (Bld) 0.6 % 0.0 - 2.0 % [facility] Eosinophils (Bld) [#/Vol] 0.1 10*3/uL 0.0 - 0.5 10*3/uL [facility] Eosinophils/100 WBC (Bld) 0.9 % 0.0 - 6.0 % [facility] Erythrocyte distribution width (RBC) [Ratio] 14.8 % 11.5 - 15.0 % [facility] Hematocrit (Bld) [Volume fraction] 28.2 % Low 35.0 - 47.0 % [facility] Hemoglobin (Bld) [Mass/Vol] 9.0 g/dL Low 11.7 - 16.0 g/dL [facility] Immature granulocytes (Bld) [#/Vol] 0.0 10*3/uL NINF - 0.1 10*3/uL [facility] Immature granulocytes/100 WBC (Bld) 0.4 % 0.0 - 2.0 % [facility] Interpretation and review of laboratory results Abnormal [facility] Lymphocytes (Bld) [#/Vol] 2.2 10*3/uL 1.0 - 4.3 10*3/uL [facility] Lymphocytes/100 WBC (Bld) 31.2 % 15.0 - 45.0 % [facility] MCH (RBC) [Entitic mass] 29.8 pg 26.0 - 34.0 pg [facility] MCHC (RBC) [Mass/Vol] 31.9 % 30.5 - 36.0 % [facility] MCV (RBC) [Entitic vol] 93.4 fL 77.0 - 99.0 fL [facility] Monocytes (Bld) [#/Vol] 0.7 10*3/uL 0.0 - 0.9 10*3/uL [facility] Monocytes/100 WBC (Bld) 10.7 % 5.0 - 13.0 % [facility] Neutrophils (Bld) [#/Vol] 3.9 10*3/uL 1.8 - 7.5 10*3/uL [facility] Neutrophils/100 WBC (Bld) 56.2 % 38.0 - 82.0 % [facility] Nucleated RBC/100 WBC (Bld) [Ratio] 0.0 % [facility] Platelet mean volume (Bld) [Entitic vol] 10.2 fL 9.0 - 12.7 fL [facility] Platelets (Bld) [#/Vol] 235 10*3/uL 140 - 440 10*3/uL [facility] RBC (Bld) [#/Vol] 3.02 10*6/uL Low 3.80 - 5.2 0 10*6/uL [facility] WBC (Bld) [#/Vol] 6.9 10*3/uL 3.6 - 10.7 10*3/uL [facility] CBC WITH AUTO DIFFERENTIALon 04-09-2024 Basophils (Bld) [#/Vol] 0.0 10*3/uL Normal 0.0-0.2 [facility] Comment on above: Performed By: #### L [id number] ####Cannon Pinion Adjuster: VELMA VALADEZ ([id number])[facility] ([facility])[address] [place] [address] Basophils/100 WBC (Bld) 0.6 % Normal 0.0-2.0 [facility] Comment on above: Performed By: #### L [id number] ####Cannon Pinion Adjuster: VELMA VALADEZ ([id number])[facility])[address] [place] [address] [place] Eosinophils (Bld) [#/Vol] 0.1 10*3/uL Normal 0.0-0.5 [facility] Comment on above: Performed By: #### L [id number] ####Cannon Pinion Adjuster: VELMA VALADEZ ([id number])[facility])[address] [place] [address] [place] Eosinophils/100 WBC (Bld) 0.9 % Normal 0.0-6.0 [facility] Comment on above: Performed By: #### L [id number] ####Cannon Pinion Adjuster: VELMA [id number])[facility])[address] [place] [address] Erythrocyte distribution width (RBC) [Ratio] 14.8 % Normal 11.5-15.0 [facility] Comment on above: Performed By: #### L [id number] ####Cannon Pinion Adjuster: VELMA VALADEZ ([id number])[facility])[address] [place] [address] Hematocrit (Bld) [Volume fraction] 28.2 % Low 35.0-47.0 [facility] Comment on above: Performed By: #### L [id number] ####Cannon Pinion Adjuster: VELMA VALADEZ ([id number])[facility])[address] [place] [address] Hemoglobin (Bld) [Mass/Vol] 9.0 g/dL Low 11.7-16.0 [facility] Comment on above: Performed By: #### L [id number] ####Cannon Pinion Adjuster: VELMA VALADEZ ([id number])[facility])[address] [place] [address] IMMATURE GRANS % 0.4 % Normal 0.0-2.0 [facility] Comment on above: Performed By: #### L [id number] ####Cannon Pinion Adjuster: VELMA VALADEZ ([id number])[facility])[address] [place] [address] IMMATURE GRANS ABSOLUTE 0.0 10*3/uL Normal <0.1 [facility] Comment on above: Performed By: #### L [id number] ####Cannon Pinion Adjuster: VELMA VALADEZ ([id number])[facility])[address] [place] [address] Lymphocytes (Bld) [#/Vol] 2.2 10*3/uL Normal 1.0-4.3 [facility] Comment on above: Performed By: #### L [id number] ####Cannon Pinion Adjuster: VELMA VALADEZ ([id number])[facility])[address] [place] [address] Lymphocytes/100 WBC (Bld) 31.2 % Normal 15.0-45.0 [facility] Comment on above: Performed By: #### L [id number] ####Cannon Pinion Adjuster: VELMA VALADEZ ([id number])[facility])[address] [place] [address] MCH (RBC) [Entitic mass] 29.8 pg Normal 26.0-34.0 [facility] Comment on above: Performed By: #### L [id number] ####Cannon Pinion Adjuster: VELMA VALADEZ ([id number])[facility])[address] [place] [address] MCHC 31.9 % Normal 30.5-36.0 [facility] Comment on above: Performed By: #### L [id number] ####Cannon Pinion Adjuster: VELMA VALADEZ ([id number])[facility])[address] [place] [address] MCV (RBC) [Entitic vol] 93.4 fL Normal 77.0-99.0 [facility] Comment on above: Performed By: #### L [id number] ####Cannon Pinion Adjuster: VELMA VALADEZ ([id number])[facility])[address] [place] [address] Monocytes (Bld) [#/Vol] 0.7 10*3/uL Normal 0.0-0.9 [facility] Comment on above: Performed By: #### L [id number] ####Cannon Pinion Adjuster: VELMA VALADEZ ([id number])[facility])[address] [place] [address] Monocytes/100 WBC (Bld) 10.7 % Normal 5.0-13.0 [facility] Comment on above: Performed By: #### L [id number] ####Cannon Pinion Adjuster: VELMA VALADEZ ([id number])[facility])[address] [place] [address] NEUTROPHILS ABSOLUTE 3.9 10*3/uL Normal 1.8-7.5 [facility] Comment on above: Performed By: #### L [id number] ####Cannon Pinion Adjuster: VELMA VALADEZ ([id number])[facility] ([facility])[address] [place] [address] Neutrophils/100 WBC (Bld) 56.2 % Normal 38.0-82.0 [facility] Comment on above: Performed By: #### L [id number] ####Cannon Pinion Adjuster: VELMA VALADEZ ([id number])[facility] ([facility])[address] [place] [address] NRBC 0.0 /100 WBCs Normal 0.0-2.0 [facility] Comment on above: Performed By: #### L [id number] ####Cannon Pinion Adjuster: VELMA VALADEZ ([id number])[facility] ([facility])[address] [place] [address] Platelet mean volume (Bld) [Entitic vol] 10.2 fL Normal 9.0-12.7 [facility] Comment on above: Performed By: #### L [id number] ####Cannon Pinion Adjuster: VELMA VALADEZ ([id number])[facility] ([facility])[address] [place] [address] Platelets (Bld) [#/Vol] 235 10*3/uL Normal 140-440 [facility] Comment on above: Performed By: #### L [id number] ####Cannon Pinion Adjuster: VELMA VALADEZ ([id number])[facility])[address] [place] [address] RBC (Bld) [#/Vol] 3.02 10*6/uL Low 3.80-5.20 [facility] Comment on above: Performed By: #### L [id number] ####Cannon Pinion Adjuster: VELMA VALADEZ ([id number])[facility])[address] [place] [address] [place] WBC (Bld) [#/Vol] 6.9 10*3/uL Normal 3.6-10.7 [facility] Comment on above: Performed By: #### L [id number] ####Cannon Pinion Adjuster: VELMA VALADEZ ([id number])[facility])[address] [place] [address] Laboratory - Coagulationon 0 04-09-2024 PT Coag (Bld) [Time] 13.8 s High 9.0 - 1 2.0 s [facility] No Panel Informationon 04-09 Interpretation and review of laboratory results Abnormal [facility] PROTHROMBIN TIMEon INR Coag (PPP) [Relative time] 1.2 {INR} High 0.9-1.1 [facility] Comment on above: Result Comment: Timothy [...] Myocardial Infarction Performed By: #### Weston AB320, [id number] ####Cannon Pinion Adjuster: VELMA VALADEZ ([id number])[facility])[address] [place] [address] PT Coag (PPP) [Time] 13.8 s High 9.0-12.0 [facility] Comment on above: Performed By: #### Weston AB320, [id number] ####Cannon Pinion Adjuster: VELMA VALADEZ ([phone])[facility])[address] [place] [address] [place] PT Coag (Bld) [Time]on 04-09 INR Coag (PPP) [Relative time] 1.2 {INR} High 0.9 - 1.1 [facility] Comment on above: Recommended Anticoag ulant [...] Infarction Progress Noteon 04-09-2024 Progress Note Normal [facility] Progress Note Normal [facility] XR CHEST 1 VIEWon 04-09-2024 XR CHEST 1 VIEW Normal [facility] XR Chest Single viewon 04-09 Mild cardiomegaly and pulmonary venous congestion with small pleural effusions. Report Dictated on Electronically Signed By: Di Leggett MD Electronically Signed Date/Time: 04/09/2024 1:42 PM EDT [facility] Patient Name: MEL CARVER RD [...] the left shoulder. No acute osseous findings. [facility] Di Leggett M D - 04/09/2024 Patient [...] Electronically Signed Date/Time: 04/09/2024 1:42 PM EDT [facility] Radiology Study observation (narrative) [facility] XR Chest Single viewOrdered By: Di Leggett on 04-09-2024 [facility] Work Phone: aPTT Coag (Bld) [Time]on aPTT Coag (PPP) [Time] 58.9 s High 20.0 - 30.5 s [facility] Interpretation and review of laboratory results Abnormal [facility] NOTE: The therapeuti c time for Heparin anticoagulation, based on Xa activity inhibition, is an APTT of 46-80 seconds. [facility] aPTT Coag (PPP) [Time] 64.6 s High 20.0 - 30.5 s [facility] Interpretation and review of laboratory results Abnormal [facility] NOTE: The therapeuti c time for Heparin anticoagulation, based on Xa activity inhibition, is an APTT of 46-80 seconds. [facility] aPTT Coag (PPP) [Time] 82.3 s High 20.0 - 30.5 s [facility] NOTE: The therapeuti c time for Heparin anticoagulation, based on Xa activity inhibition, is an APTT of 46-80 seconds. [facility] APTTon 04-08-2024 aPTT Coag (Bld) [Time] 51.5 s High 20.0-30.5 [facility] Comment on above: Result Comment: BUBBA Garcia COMMENTS:NOTE: The therapeutic time for Heparin anticoagulation, based on Xa activity inhibition, is an APTT of 46-80 seconds. Performed By: #### L [id number] ####Cannon Pinion Adjuster: VELMA VALADEZ ([id number])[facility] ([address] aPTT Coag (Bld) [Time] 59.8 s High 20.0-30.5 [facility] Comment on above: Result Comment: BUBBA Garcia COMMENTS:NOTE: The therapeutic time for Heparin anticoagulation, based on Xa activity inhibition, is an APTT of 46-80 seconds. Performed By: #### L AB325 ####Cannon Pinion Adjuster: VELMA VALADEZ ([id number])[facility])[address] [place] [address] aPTT Coag (Bld) [Time] 41.4 s High 20.0-30.5 [facility] Comment on above: Result Comment: BUBBA Garcia COMMENTS:NOTE: The therapeutic time for Heparin anticoagulation, based on Xa activity inhibition, is an APTT of 46-80 seconds. Performed By: #### L [id number], [id number] ####Cannon Pinion Adjuster: VELMA VALADEZ ([phone])[facility] ([facility])[address] [place] [address] BASIC METABOLIC PANELon 09-2 -2023 Anion gap [Moles/Vol] 5 mmol/L Normal 3-13 [facility] Comment on above: Performed By: #### L AB15 ####Cannon Pinion Adjuster: VELMA VALADEZ ([id number])[facility] ([facility])[address] [place] [address] Calcium [Mass/Vol] 8.9 mg/dL Normal 8.4-10.4 [facility] Comment on above: Performed By: #### L AB15 ####Cannon Pinion Adjuster: VELMA VALADEZ ([id number])[facility] ([facility])[address] [place] [address] Chloride [Moles/Vol] 113 mmol/L High 98-107 [facility] Comment on above: Performed By: #### L [id number] ####[place] Adjuster: VELMA VALADEZ ([phone])[facility] ([facility])[address] [place] [address] [place] CO2 [Moles/Vol] 17 mmol/L Low 22-30 [facility] Comment on above: Performed By: #### L AB15 ####[place] Adjuster: VELMA VALADEZ ([id number])[facility] ([facility])[address] [place] [address] Creatinine [Mass/Vol] 0.98 mg/dL Normal 0.52-1.04 [facility] Comment on above: Performed By: #### L AB15 ####[place] Adjuster: VELMA VALADEZ ([id number])[facility])[address] [place] [address] GLOMERULAR FILTRATION RATE ML/MIN/1.73 SQ M.PREDICTED 57.0 mL/min/1.73m*2 Low >60.0 [facility] Comment on above: Result Comment: Calc ulation based on the Chronic Kidney Disease Epidemiology Collaboration (CKD-EPI) equation refit without adjustment for race Performed By: #### L [id number] ####Cannon Pinion Adjuster: VELMA VALADEZ ([id number])[facility] ([facility])[address] [place] [address] Glucose [Mass/Vol] 116 mg/dL High 70-100 [facility] Comment on above: Performed By: #### L [id number] ####Cannon Pinion Adjuster: VELMA VALADEZ ([id number])[facility] ([facility])[address] [place] [address] Potassium [Moles/Vol] 4.5 mmol/L Normal 3.5-5.1 [facility] Comment on above: Performed By: #### L [id number] ####Cannon Pinion Adjuster: VELMA VALADEZ ([phone])[facility] ([facility])[address] [place] [address] Sodium [Moles/Vol] 135 mmol/L Normal 135-145 [facility] Comment on above: Performed By: #### L [id number] ####Cannon Pinion Adjuster: VELMA VALADEZ ([phone])[facility] ([facility])[address] [place] [address] [place] Urea nitrogen [Mass/Vol] 18 mg/dL High 7-17 [facility] Comment on above: Performed By: #### L [id number] ####Cannon Pinion Adjuster: VELMA VALADEZ ([phone])[facility] ([facility])[address] [place] [address] Basic metabolic 1998 panelon 04-08-2024 Anion gap [Moles/Vol] 5 mmol/L 3 - 13 mmol/L [facility] Calcium [Mass/Vol] 8.9 mg/dL 8.4 - 10. 4 mg/dL [facility] Chloride [Moles/Vol] 113 mmol/L High 98 - 10 7 mmol/L [facility] CO2 [Moles/Vol] 17 mmol/L Low 22 - 30 mmol/L [facility] Creatinine [Mass/Vol] 0.98 mg/dL 0.52 - 1.04 mg/dL [facility] GFR/1.73 sq M.predicted (S/P/Bld) [Vol rate/Area] 57.0 mL/min Low - PINF [facility] Comment on above: Calculation based on the Chronic Kidney Disease Epidemiology Collaboration (CKD-EPI) equation refit without adjustment for race Glucose [Mass/Vol] 116 mg/dL High 70 - 100 mg/dL [facility] Interpretation and review of laboratory results Abnormal [facility] Potassium [Moles/Vol] 4.5 mmol/L 3.5 - 5.1 mmol/L [facility] Sodium [Moles/Vol] 135 mmol/L 135 - 145 mmol/L [facility] Urea nitrogen [Mass/Vol] 18 mg/dL High 7 - 17 mg/dL [facility] CBC W Auto Differential pane l (Bld)on 04-08-2024 Basophils (Bld) [#/Vol] 0.0 10*3/uL 0.0 - 0.2 10*3/uL [facility] Basophils/100 WBC (Bld) 0.5 % 0.0 - 2.0 % [facility] Eosinophils (Bld) [#/Vol] 0.1 10*3/uL 0.0 - 0.5 10*3/uL [facility] Eosinophils/100 WBC (Bld) 0.9 % 0.0 - 6.0 % [facility] Erythrocyte distribution width (RBC) [Ratio] 14.8 % 11.5 - 15.0 % [facility] Hematocrit (Bld) [Volume fraction] 27.0 % Low 35.0 - 47.0 % [facility] Hemoglobin (Bld) [Mass/Vol] 8.6 g/dL Low 11.7 - 16.0 g/dL [facility] Immature granulocytes (Bld) [#/Vol] 0.0 10*3/uL NINF - 0.1 10*3/uL [facility] [employer] Immature granulocytes/100 WBC (Bld) 0.4 % 0.0 - 2.0 % [facility] Interpretation and review of laboratory results Abnormal [facility] Lymphocytes (Bld) [#/Vol] 1.7 10*3/uL 1.0 - 4.3 10*3/uL [facility] Lymphocytes/100 WBC (Bld) 23.3 % 15.0 - 45.0 % [facility] MCH (RBC) [Entitic mass] 30.2 pg 26.0 - 34.0 pg [facility] MCHC (RBC) [Mass/Vol] 31.9 % 30.5 - 36.0 % [facility] MCV (RBC) [Entitic vol] 94.7 fL 77.0 - 99.0 fL [facility] Monocytes (Bld) [#/Vol] 0.8 10*3/uL 0.0 - 0.9 10*3/uL [facility] Monocytes/100 WBC (Bld) 10.2 % 5.0 - 13.0 % [facility] Neutrophils (Bld) [#/Vol] 4.8 10*3/uL 1.8 - 7.5 10*3/uL [facility] Neutrophils/100 WBC (Bld) 64.7 % 38.0 - 82.0 % [facility] Nucleated RBC/100 WBC (Bld) [Ratio] 0.0 % [facility] Platelet mean volume (Bld) [Entitic vol] 10.1 fL 9.0 - 12.7 fL [facility] Platelets (Bld) [#/Vol] 223 10*3/uL 140 - 440 10*3/uL [facility] RBC (Bld) [#/Vol] 2.85 10*6/uL Low 3.80 - 5.2 0 10*6/uL [facility] WBC (Bld) [#/Vol] 7.5 10*3/uL 3.6 - 10.7 10*3/uL [facility] CBC WITH AUTO DIFFERENTIALon 04-08-2024 Basophils (Bld) [#/Vol] 0.0 10*3/uL Normal 0.0-0.2 [facility] Comment on above: Performed By: #### L [id number] ####Cannon Pinion Adjuster: VELMA VALADEZ ([id number])[facility])[address] [place] [address] Basophils/100 WBC (Bld) 0.5 % Normal 0.0-2.0 [facility] Comment on above: Performed By: #### L [id number] ####Cannon Pinion Adjuster: VELMA VALADEZ ([id number])[facility])[address] [place] [address] Eosinophils (Bld) [#/Vol] 0.1 10*3/uL Normal 0.0-0.5 [facility] Comment on above: Performed By: #### L [id number] ####Cannon Pinion Adjuster: VELMA VALADEZ ([id number])[facility])[address] [place] [address] Eosinophils/100 WBC (Bld) 0.9 % Normal 0.0-6.0 [facility] Comment on above: Performed By: #### L [id number] ####Cannon Pinion Adjuster: VELMA VALADEZ ([id number])[facility])[address] [place] [address] Erythrocyte distribution width (RBC) [Ratio] 14.8 % Normal 11.5-15.0 [facility] Comment on above: Performed By: #### L [id number] ####Cannon Pinion Adjuster: VELMA VALADEZ ([id number])[address] Hematocrit (Bld) [Volume fraction] 27.0 % Low 35.0-47.0 [facility] Comment on above: Performed By: #### L [id number] ####Cannon Pinion Adjuster: VELMA VALADEZ ([id number])[facility])[address] [place] [address] Hemoglobin (Bld) [Mass/Vol] 8.6 g/dL Low 11.7-16.0 [facility] Comment on above: Performed By: #### L [id number] ####Cannon Pinion Adjuster: VELMA VALADEZ ([phone])[facility])[address] [place] [address] IMMATURE GRANS % 0.4 % Normal 0.0-2.0 [facility] Comment on above: Performed By: #### L [id number] ####Cannon Pinion Adjuster: VELMA VALADEZ ([id number])[facility])[address] [place] [address] IMMATURE GRANS ABSOLUTE 0.0 10*3/uL Normal <0.1 [facility] Comment on above: Performed By: #### L [id number] ####Cannon Pinion Adjuster: VELMA VALADEZ ([id number])[facility])[address] [place] [address] Lymphocytes (Bld) [#/Vol] 1.7 10*3/uL Normal 1.0-4.3 [facility] Comment on above: Performed By: #### L [id number] ####Cannon Pinion Adjuster: VELMA VALADEZ ([id number])[facility])[address] [place] [address] Lymphocytes/100 WBC (Bld) 23.3 % Normal 15.0-45.0 [facility] Comment on above: Performed By: #### L [id number] ####Cannon Pinion Adjuster: VELMA VALADEZ ([id number])[facility])[address] [place] [address] MCH (RBC) [Entitic mass] 30.2 pg Normal 26.0-34.0 [facility] Comment on above: Performed By: #### L [id number] ####Cannon Pinion Adjuster: VELMA VALADEZ ([id number])[facility])[address] [place] [address] MCHC 31.9 % Normal 30.5-36.0 [facility] Comment on above: Performed By: #### L [id number] ####Cannon Pinion Adjuster: VELMA VALADEZ ([id number])[facility])[address] [place] [address] MCV (RBC) [Entitic vol] 94.7 fL Normal 77.0-99.0 [facility] Comment on above: Performed By: #### L [id number] ####Cannon Pinion Adjuster: VELMA VALADEZ ([id number])[facility] ([facility])[address] [place] [address] Monocytes (Bld) [#/Vol] 0.8 10*3/uL Normal 0.0-0.9 [facility] Comment on above: Performed By: #### L [id number] ####Cannon Pinion Adjuster: VELMA VALADEZ ([id number])[facility] ([facility])[address] [place] [address] Monocytes/100 WBC (Bld) 10.2 % Normal 5.0-13.0 [facility] Comment on above: Performed By: #### L [id number] ####Cannon Pinion Adjuster: VELMA VALADEZ ([id number])[facility] ([facility])[address] [place] [address] NEUTROPHILS ABSOLUTE 4.8 10*3/uL Normal 1.8-7.5 [facility] Comment on above: Performed By: #### L [id number] ####Cannon Pinion Adjuster: VELMA VALADEZ ([id number])[facility] ([facility])[address] [place] [address] Neutrophils/100 WBC (Bld) 64.7 % Normal 38.0-82.0 [facility] Comment on above: Performed By: #### L [id number] ####Cannon Pinion Adjuster: VELMA VALADEZ ([id number])[facility] ([facility])[address] [place] [address] NRBC 0.0 /100 WBCs Normal 0.0-2.0 [facility] Comment on above: Performed By: #### L [id number] ####Cannon Pinion Adjuster: VELMA VALADEZ ([id number])[facility] ([facility])[address] [place] [address] Platelet mean volume (Bld) [Entitic vol] 10.1 fL Normal 9.0-12.7 [facility] Comment on above: Performed By: #### L [id number] ####Cannon Pinion Adjuster: VELMA VALADEZ ([id number])[facility])[address] [place] [address] Platelets (Bld) [#/Vol] 223 10*3/uL Normal 140-440 [facility] Comment on above: Performed By: #### L [id number] ####Cannon Pinion Adjuster: VELMA VALADEZ ([id number])[facility])[address] [place] [address] RBC (Bld) [#/Vol] 2.85 10*6/uL Low 3.80-5.20 [facility] Comment on above: Performed By: #### L [id number] ####Cannon Pinion Adjuster: VELMA VALADEZ ([id number])[facility])[address] [place] [address] WBC (Bld) [#/Vol] 7.5 10*3/uL Normal 3.6-10.7 [facility] Comment on above: Performed By: #### L [id number] ####Cannon Pinion Adjuster: VELMA VALADEZ ([id number])[facility])[address] [place] [address] IDNon 04-08-2024 IDN Progressing Normal [facility] - Coagulationon 0 04-08-2024 PT Coag (Bld) [Time] 11.2 s 9.0 - 1 2.0 s [facility] No Panel Informationon 04-08 [facility] PROTHROMBIN TIMEon INR Coag (PPP) [Relative time] 1.0 {INR} Normal 0.9-1.1 [facility] Comment on above: Result Comment: Timothy [...] Myocardial Infarction Performed By: #### L [id number], [id number] ####Cannon Pinion Adjuster: VELMA [id number])[facility] ([facility])[address] [place] [address] PT Coag (PPP) [Time] 11.2 s Normal 9.0-12.0 [facility] Comment on above: Performed By: #### L [id number], [id number] ####Cannon Pinion Adjuster: VELMA VALADEZ ([phone])[facility] ([facility])[address] [place] [address] PT Coag (Bld) [Time]on 04-08 INR Coag (PPP) [Relative time] 1.0 {INR} 0.9 - 1.1 [facility] Comment on above: Recommended Anticoag ulant [...] Interpretation and review of laboratory results Normal [facility] Progress Noteon 04-08-2024 Progress Note Normal [facility] Progress Note Normal [facility] aPTT Coag (Bld) [Time]on aPTT Coag (PPP) [Time] 51.5 s High 20.0 - 30.5 s [facility] Interpretation and review of laboratory results Abnormal [facility] NOTE: The therapeuti c time for Heparin anticoagulation, based on Xa activity inhibition, is an APTT of 46-80 seconds. [facility] aPTT Coag (PPP) [Time] 59.8 s High 20.0 - 30.5 s [facility] Interpretation and review of laboratory results Abnormal [facility] NOTE: The therapeuti c time for Heparin anticoagulation, based on Xa activity inhibition, is an APTT of 46-80 seconds. [facility] aPTT Coag (PPP) [Time] 41.4 s High 20.0 - 30.5 s [facility] Interpretation and review of laboratory results Abnormal [facility] NOTE: The therapeuti c time for Heparin anticoagulation, based on Xa activity inhibition, is an APTT of 46-80 seconds. [facility] APTTon 04-07-2024 aPTT Coag (Bld) [Time] 54.7 s High 20.0-30.5 [facility] Comment on above: Result Comment: BUBBA Garcia COMMENTS:NOTE: The therapeutic time for Heparin anticoagulation, based on Xa activity inhibition, is an APTT of 46-80 seconds. Performed By: #### L [id number] ####Cannon Pinion Adjuster: VELMA VALADEZ ([id number])[facility])[address] [place] [address] aPTT Coag (Bld) [Time] 77.7 s High 20.0-30.5 [facility] Comment on above: Result Comment: BUBBA Garcia COMMENTS:NOTE: The therapeutic time for Heparin anticoagulation, based on Xa activity inhibition, is an APTT of 46-80 seconds. Performed By: #### L [id number], [id number] ####Cannon Pinion Adjuster: VELMA VALADEZ ([id number])[facility])[address] [place] [address] BASIC METABOLIC PANELon 03-19 Anion gap [Moles/Vol] 4 mmol/L Normal 3-13 [facility] Comment on above: Performed By: #### L AB15 ####Cannon Pinion Adjuster: VELMA VALADEZ ([phone])[facility])[address] [place] [address] Calcium [Mass/Vol] 8.8 mg/dL Normal 8.4-10.4 [facility] Comment on above: Performed By: #### L AB15 ####Cannon Pinion Adjuster: VELMA VALADEZ ([id number])[facility])[address] [place] [address] [place] Chloride [Moles/Vol] 115 mmol/L High 98-107 [facility] Comment on above: Performed By: #### L AB15 ####Cannon Pinion Adjuster: VELMA VALADEZ ([id number])[facility])[address] [place] [address] [place] CO2 [Moles/Vol] 17 mmol/L Low 22-30 [facility] Comment on above: Performed By: #### L AB15 ####Cannon Pinion Adjuster: VELMA VALADEZ ([id number])[facility] ([facility])[address] [place] [address] Creatinine [Mass/Vol] 0.90 mg/dL Normal 0.52-1.04 [facility] Comment on above: Performed By: #### L AB15 ####Cannon Pinion Adjuster: VELMA VALADEZ ([phone])[facility] ([facility])[address] [place] [address] [place] GLOMERULAR FILTRATION RATE ML/MIN/1.73 SQ M.PREDICTED 63.2 mL/min/1.73m*2 Normal >60.0 [facility] Comment on above: Result Comment: Calc ulation based on the Chronic Kidney Disease Epidemiology Collaboration (CKD-EPI) equation refit without adjustment for race Performed By: #### L AB15 ####Cannon Pinion Adjuster: VELMA VALADEZ ([id number])[facility] ([facility])[address] [place] [address] [place] Glucose [Mass/Vol] 139 mg/dL High 70-100 [facility] Comment on above: Performed By: #### L AB15 ####Cannon Pinion Adjuster: VELMA VALADEZ ([id number])[facility] ([facility])[address] [place] [address] [place] Potassium [Moles/Vol] 4.7 mmol/L Normal 3.5-5.1 [facility] Comment on above: Performed By: #### L AB15 ####Cannon Pinion Adjuster: VELMA VALADEZ ([id number])[facility] ([facility])[address] [place] [address] [place] Sodium [Moles/Vol] 136 mmol/L Normal 135-145 [facility] Comment on above: Performed By: #### L AB15 ####Cannon Pinion Adjuster: VELMA VALADEZ ([phone])[facility] ([facility])[address] [place] [address] [place] Urea nitrogen [Mass/Vol] 16 mg/dL Normal 7-17 [facility] Comment on above: Performed By: #### L AB15 ####Cannon Pinion Adjuster: VELMA VALADEZ ([id number])[facility] ([facility])[address] [place] [address] Basic metabolic 1998 panelon 04-07-2024 Anion gap [Moles/Vol] 4 mmol/L 3 - 13 mmol/L [facility] Calcium [Mass/Vol] 8.8 mg/dL 8.4 - 10. 4 mg/dL [facility] Chloride [Moles/Vol] 115 mmol/L High 98 - 10 7 mmol/L [facility] CO2 [Moles/Vol] 17 mmol/L Low 22 - 30 mmol/L [facility] Creatinine [Mass/Vol] 0.90 mg/dL 0.52 - 1.04 mg/dL [facility] GFR/1.73 sq M.predicted (S/P/Bld) [Vol rate/Area] 63.2 mL/min - PINF [facility] Comment on above: Calculation based on the Chronic Kidney Disease Epidemiology Collaboration (CKD-EPI) equation refit without adjustment for race Glucose [Mass/Vol] 139 mg/dL High 70 - 100 mg/dL [facility] Interpretation and review of laboratory results Abnormal [facility] Potassium [Moles/Vol] 4.7 mmol/L 3.5 - 5.1 mmol/L [facility] Sodium [Moles/Vol] 136 mmol/L 135 - 145 mmol/L [facility] Urea nitrogen [Mass/Vol] 16 mg/dL 7 - 17 mg/dL [facility] CBC W Auto Differential pane l (Bld)on 04-07-2024 Basophils (Bld) [#/Vol] 0.0 10*3/uL 0.0 - 0.2 10*3/uL [facility] Basophils/100 WBC (Bld) 0.2 % 0.0 - 2.0 % [facility] Eosinophils (Bld) [#/Vol] 0.0 10*3/uL 0.0 - 0.5 10*3/uL [facility] Eosinophils/100 WBC (Bld) 0.0 % 0.0 - 6.0 % [facility] Erythrocyte distribution width (RBC) [Ratio] 14.3 % 11.5 - 15.0 % [facility] Hematocrit (Bld) [Volume fraction] 27.0 % Low 35.0 - 47.0 % [facility] Hemoglobin (Bld) [Mass/Vol] 8.6 g/dL Low 11.7 - 16.0 g/dL [facility] [employer] Immature granulocytes (Bld) [#/Vol] 0.0 10*3/uL NINF - 0.1 10*3/uL [facility] Immature granulocytes/100 WBC (Bld) 0.5 % 0.0 - 2.0 % [facility] Interpretation and review of laboratory results Abnormal [facility] Lymphocytes (Bld) [#/Vol] 0.8 10*3/uL Low 1.0 - 4.3 10*3/uL [facility] Lymphocytes/100 WBC (Bld) 19.2 % 15.0 - 45.0 % [facility] MCH (RBC) [Entitic mass] 30.1 pg 26.0 - 34.0 pg [facility] MCHC (RBC) [Mass/Vol] 31.9 % 30.5 - 36.0 % [facility] MCV (RBC) [Entitic vol] 94.4 fL 77.0 - 99.0 fL [facility] Monocytes (Bld) [#/Vol] 0.3 10*3/uL 0.0 - 0.9 10*3/uL [facility] Monocytes/100 WBC (Bld) 7.5 % 5.0 - 13.0 % [facility] Neutrophils (Bld) [#/Vol] 2.9 10*3/uL 1.8 - 7.5 10*3/uL [facility] Neutrophils/100 WBC (Bld) 72.6 % 38.0 - 82.0 % [facility] Nucleated RBC/100 WBC (Bld) [Ratio] 0.0 % [facility] Platelet mean volume (Bld) [Entitic vol] 10.5 fL 9.0 - 12.7 fL [facility] [employer] Platelets (Bld) [#/Vol] 202 10*3/uL 140 - 440 10*3/uL [facility] RBC (Bld) [#/Vol] 2.86 10*6/uL Low 3.80 - 5.2 0 10*6/uL [facility] WBC (Bld) [#/Vol] 4.0 10*3/uL 3.6 - 10.7 10*3/uL [facility] CBC WITH AUTO DIFFERENTIALon 04-07-2024 Basophils (Bld) [#/Vol] 0.0 10*3/uL Normal 0.0-0.2 [facility] Comment on above: Performed By: #### L [id number] ####Cannon Pinion Adjuster: VELMA VALADEZ ([id number])[facility] ([facility])[address] [place] [address] Basophils/100 WBC (Bld) 0.2 % Normal 0.0-2.0 [facility] Comment on above: Performed By: #### L [id number] ####Cannon Pinion Adjuster: VELMA VALADEZ ([phone])[facility] ([facility])[address] [place] [address] Eosinophils (Bld) [#/Vol] 0.0 10*3/uL Normal 0.0-0.5 [facility] Comment on above: Performed By: #### L [id number] ####Cannon Pinion Adjuster: VELMA VALADEZ ([phone])[facility] ([facility])[address] [place] [address] [place] Eosinophils/100 WBC (Bld) 0.0 % Normal 0.0-6.0 [facility] Comment on above: Performed By: #### L [id number] ####Cannon Pinion Adjuster: VELMA VALADEZ ([id number])[facility])[address] [place] [address] Erythrocyte distribution width (RBC) [Ratio] 14.3 % Normal 11.5-15.0 [facility] Comment on above: Performed By: #### L [id number] ####Cannon Pinion Adjuster: VELMA VALADEZ ([id number])[facility] ([facility])[address] [place] [address] Hematocrit (Bld) [Volume fraction] 27.0 % Low 35.0-47.0 [facility] Comment on above: Performed By: #### L [id number] ####Cannon Pinion Adjuster: VELMA VALADEZ ([id number])[facility])[address] [place] [address] [place] Hemoglobin (Bld) [Mass/Vol] 8.6 g/dL Low 11.7-16.0 [facility] Comment on above: Performed By: #### L [id number] ####Cannon Pinion Adjuster: VELMA VALADEZ ([id number])[facility])[address] [place] [address] IMMATURE GRANS % 0.5 % Normal 0.0-2.0 [facility] Comment on above: Performed By: #### L [id number] ####Cannon Pinion Adjuster: VELMA VALADEZ ([id number])[facility])[address] [place] [address] IMMATURE GRANS ABSOLUTE 0.0 10*3/uL Normal <0.1 [facility] Comment on above: Performed By: #### L [id number] ####Cannon Pinion Adjuster: VELMA VALADEZ ([phone])[address] Lymphocytes (Bld) [#/Vol] 0.8 10*3/uL Low 1.0-4.3 [facility] Comment on above: Performed By: #### L [id number] ####Cannon Pinion Adjuster: VELMA VALADEZ ([id number])[address] Lymphocytes/100 WBC (Bld) 19.2 % Normal 15.0-45.0 [facility] Comment on above: Performed By: #### L [id number] ####Cannon Pinion Adjuster: VELMA VALADEZ ([id number])[facility])[address] [place] [address] MCH (RBC) [Entitic mass] 30.1 pg Normal 26.0-34.0 [facility] Comment on above: Performed By: #### L [id number] ####Cannon Pinion Adjuster: VELMA VALADEZ ([id number])[facility])[address] [place] [address] MCHC 31.9 % Normal 30.5-36.0 [facility] Comment on above: Performed By: #### L [id number] ####Cannon Pinion Adjuster: VELMA VALADEZ ([id number])[facility] ([facility])[address] [place] [address] MCV (RBC) [Entitic vol] 94.4 fL Normal 77.0-99.0 [facility] Comment on above: Performed By: #### L [id number] ####Cannon Pinion Adjuster: VELMA VALADEZ ([id number])[facility] ([facility])[address] [place] [address] Monocytes (Bld) [#/Vol] 0.3 10*3/uL Normal 0.0-0.9 [facility] Comment on above: Performed By: #### L [id number] ####Cannon Pinion Adjuster: VELMA VALADEZ ([id number])[facility] ([facility])[address] [place] [address] Monocytes/100 WBC (Bld) 7.5 % Normal 5.0-13.0 [facility] Comment on above: Performed By: #### L [id number] ####Cannon Pinion Adjuster: VELMA VALADEZ ([id number])[facility] ([facility])[address] [place] [address] NEUTROPHILS ABSOLUTE 2.9 10*3/uL Normal 1.8-7.5 [facility] Comment on above: Performed By: #### L [id number] ####Cannon Pinion Adjuster: VELMA VALADEZ ([id number])[facility] ([facility])[address] [place] [address] Neutrophils/100 WBC (Bld) 72.6 % Normal 38.0-82.0 [facility] Comment on above: Performed By: #### L [id number] ####Cannon Pinion Adjuster: VELMA VALADEZ ([id number])[facility] ([facility])[address] [place] [address] NRBC 0.0 /100 WBCs Normal 0.0-2.0 [facility] Comment on above: Performed By: #### L [id number] ####Cannon Pinion Adjuster: VELMA VALADEZ ([id number])[facility] ([facility])[address] [place] [address] Platelet mean volume (Bld) [Entitic vol] 10.5 fL Normal 9.0-12.7 [facility] Comment on above: Performed By: #### L [id number] ####Cannon Pinion Adjuster: VELMA VALADEZ ([id number])[facility])[address] [place] [address] Platelets (Bld) [#/Vol] 202 10*3/uL Normal 140-440 [facility] Comment on above: Performed By: #### L [id number] ####Cannon Pinion Adjuster: VELMA VALADEZ ([id number])ST. [facility])[address] [place] [address] RBC (Bld) [#/Vol] 2.86 10*6/uL Low 3.80-5.20 [facility] Comment on above: Performed By: #### L [id number] ####Cannon Pinion Adjuster: VELMA VALADEZ ([id number])[facility] ([facility])[address] [place] [address] WBC (Bld) [#/Vol] 4.0 10*3/uL Normal 3.6-10.7 [facility] Comment on above: Performed By: #### L [id number] ####Cannon Pinion Adjuster: VELMA VALADEZ ([id number])[facility] ([facility])[address] [place] [address] IDNon 04-07-2024 IDN Normal [facility] - Coagulationon 0 04-07-2024 PT Coag (Bld) [Time] 11.1 s 9.0 - 1 2.0 s [facility] No Panel Informationon 04-07 [facility] Nursing Noteon 04-07-2024 Nursing Note NO changes to hepari n infusion at this time. Normal [facility] PROTHROMBIN TIMEon INR Coag (PPP) [Relative time] 1.0 {INR} Normal 0.9-1.1 [facility] Comment on above: Result Comment: Timothy [...] Myocardial Infarction Performed By: #### Weston [id number], [id number] ####Cannon Pinion Adjuster: VELMA VALADEZ ([id number])[facility])[address] [place] [address] PT Coag (PPP) [Time] 11.1 s Normal 9.0-12.0 [facility] [employer] [facility] Comment on above: Performed By: #### Weston [id number], [id number] ####Cannon Pinion Adjuster: VELMA VALADEZ ([id number])[facility] ([facility])[address] [place] [address] PT Coag (Bld) [Time]on 04-07 INR Coag (PPP) [Relative time] 1.0 {INR} 0.9 - 1.1 [facility] Comment on above: Recommended Anticoag ulant [...] Interpretation and review of laboratory results Normal [facility] [employer] Progress Noteon 04-07-2024 Progress Note Normal [employer] [facility] Progress Note Normal [employer] [facility] Progress Note Normal [facility] [employer] [facility] aPTT Coag (Bld) [Time]on aPTT Coag (PPP) [Time] 54.7 s High 20.0 - 30.5 s [facility] [employer] Interpretation and review of laboratory results Abnormal [facility] [employer] NOTE: The therapeuti c time for Heparin anticoagulation, based on Xa activity inhibition, is an APTT of 46-80 seconds. [facility] aPTT Coag (PPP) [Time] 77.7 s High 20.0 - 30.5 s [facility] Interpretation and review of laboratory results Abnormal [facility] NOTE: The therapeuti c time for Heparin anticoagulation, based on Xa activity inhibition, is an APTT of 46-80 seconds. [facility] [id number] 04-06-2024 [id number] Normal [facility] APTTon 04-06-2024 aPTT Coag (Bld) [Time] 43.3 s High 20.0-30.5 [facility] Comment on above: Result Comment: HARRIETE R COMMENTS:NOTE: The therapeutic time for Heparin anticoagulation, based on Xa activity inhibition, is an APTT of 46-80 seconds. Performed By: #### L [id number] ####Cannon Pinion Adjuster: VELMA VALADEZ ([id number])[address] aPTT Coag (Bld) [Time] 97.6 s High 20.0-30.5 [facility] Comment on above: Result Comment: BUBBA Garcia COMMENTS:NOTE: The therapeutic time for Heparin anticoagulation, based on Xa activity inhibition, is an APTT of 46-80 seconds. Performed By: #### L [id number] ####Cannon Pinion Adjuster: VELMA VALADEZ ([id number])[address] Anesthesia Noteon 04-06-2024 Anesthesia Note Normal [facility] Anesthesia Note Normal [facility] BASIC METABOLIC PANELon 03-19 Anion gap [Moles/Vol] 4 mmol/L Normal 3-13 [facility] Comment on above: Performed By: #### L AB15 ####Cannon Pinion Adjuster: VELMA VALADEZ ([id number])[facility] ([facility])[address] [place] [address] Calcium [Mass/Vol] 8.9 mg/dL Normal 8.4-10.4 [facility] Comment on above: Performed By: #### L AB15 ####Cannon Pinion Adjuster: VELMA [id number])[facility] ([facility])[address] [place] [address] Chloride [Moles/Vol] 114 mmol/L High 98-107 [facility] Comment on above: Performed By: #### L AB15 ####Cannon Pinion Adjuster: VELMA VALADEZ ([id number])[facility] ([facility])[address] [place] [address] CO2 [Moles/Vol] 18 mmol/L Low 22-30 [facility] Comment on above: Performed By: #### L AB15 ####Cannon Pinion Adjuster: VELMA VALADEZ ([id number])[facility] ([facility])[address] [place] [address] Creatinine [Mass/Vol] 0.96 mg/dL Normal 0.52-1.04 [facility] Comment on above: Performed By: #### L AB15 ####Cannon Pinion Adjuster: VELMA VALADEZ ([id number])[facility] ([facility])[address] [place] [address] GLOMERULAR FILTRATION RATE ML/MIN/1.73 SQ M.PREDICTED 58.5 mL/min/1.73m*2 Low >60.0 [facility] Comment on above: Result Comment: Calc ulation based on the Chronic Kidney Disease Epidemiology Collaboration (CKD-EPI) equation refit without adjustment for race Performed By: #### L AB15 ####Cannon Pinion Adjuster: VELMA VALADEZ ([id number])[facility] ([facility])[address] [place] [address] Glucose [Mass/Vol] 97 mg/dL Normal 70-100 [facility] Comment on above: Performed By: #### L AB15 ####Cannon Pinion Adjuster: VELMA VALADEZ ([id number])[facility] ([facility])[address] [place] [address] Potassium [Moles/Vol] 4.6 mmol/L Normal 3.5-5.1 [facility] Comment on above: Performed By: #### L AB15 ####Cannon Pinion Adjuster: VELMA [id number])[facility])[address] [place] [address] [place] Sodium [Moles/Vol] 135 mmol/L Normal 135-145 [facility] Comment on above: Performed By: #### L AB15 ####Cannon Pinion Adjuster: VELMA VALADEZ ([id number])[facility] ([facility])[address] [place] [address] Urea nitrogen [Mass/Vol] 17 mg/dL Normal 7-17 [facility] Comment on above: Performed By: #### L AB15 ####Cannon Pinion Adjuster: VELMA VALADEZ ([id number])[facility] [place] [address] BLOOD TYPE AND SCREEN GELon 04-06-2024 ABO GROUPING AB Normal [facility] Comment on above: Performed By: #### L [id number] ####Cannon Pinion Adjuster: VELMA VALADEZ ([id number])[facility] ([facility])[address] [place] [address] RH TYPE IN BLOOD Positive Normal [facility] Comment on above: Performed By: #### L [id number] ####Cannon Pinion Adjuster: VELMA VALADEZ ([id number])[facility] ([facility])[address] [place] [address] Basic metabolic 1998 panelon 04-06-2024 Anion gap [Moles/Vol] 4 mmol/L 3 - 13 mmol/L [facility] Calcium [Mass/Vol] 8.9 mg/dL 8.4 - 10. 4 mg/dL [facility] [employer] Chloride [Moles/Vol] 114 mmol/L High 98 - 10 7 mmol/L [facility] [employer] CO2 [Moles/Vol] 18 mmol/L Low 22 - 30 mmol/L [facility] Creatinine [Mass/Vol] 0.96 mg/dL 0.52 - 1.04 mg/dL [facility] [employer] GFR/1.73 sq M.predicted (S/P/Bld) [Vol rate/Area] 58.5 mL/min Low - PINF [facility] Comment on above: Calculation based on the Chronic Kidney Disease Epidemiology Collaboration (CKD-EPI) equation refit without adjustment for race Glucose [Mass/Vol] 97 mg/dL 70 - 100 mg/dL [facility] Interpretation and review of laboratory results Abnormal [facility] Potassium [Moles/Vol] 4.6 mmol/L 3.5 - 5.1 mmol/L [facility] Sodium [Moles/Vol] 135 mmol/L 135 - 145 mmol/L [facility] Urea nitrogen [Mass/Vol] 17 mg/dL 7 - 17 mg/dL [facility] Blood type and Crossmatch pa juan (Bld)on 04-06-2024 ABO group Nom (Bld) AB [facility] Blood group antibody screen GEL Ql Negative [facility] D Ag Ql (RBC) Positive [facility]alt [facility] CARECOORDon 04-06-2024 [place] Normal [facility] Normal [facility] CBC W Auto Differential pane l (Bld)on 04-06-2024 Basophils (Bld) [#/Vol] 0.1 10*3/uL 0.0 - 0.2 10*3/uL [facility] Basophils/100 WBC (Bld) 1.1 % 0.0 - 2.0 % [facility] Eosinophils (Bld) [#/Vol] 0.1 10*3/uL 0.0 - 0.5 10*3/uL [facility] Eosinophils/100 WBC (Bld) 2.7 % 0.0 - 6.0 % [facility] Erythrocyte distribution width (RBC) [Ratio] 14.3 % 11.5 - 15.0 % [facility] Hematocrit (Bld) [Volume fraction] 29.8 % Low 35.0 - 47.0 % [facility] Hemoglobin (Bld) [Mass/Vol] 9.7 g/dL Low 11.7 - 16.0 g/dL [facility] Immature granulocytes (Bld) [#/Vol] 0.0 10*3/uL NINF - 0.1 10*3/uL [facility] Immature granulocytes/100 WBC (Bld) 0.2 % 0.0 - 2.0 % [facility] Interpretation and review of laboratory results Abnormal [facility] Lymphocytes (Bld) [#/Vol] 1.5 10*3/uL 1.0 - 4.3 10*3/uL [facility] Lymphocytes/100 WBC (Bld) 33.0 % 15.0 - 45.0 % [facility] MCH (RBC) [Entitic mass] 30.3 pg 26.0 - 34.0 pg [facility] MCHC (RBC) [Mass/Vol] 32.6 % 30.5 - 36.0 % [facility] MCV (RBC) [Entitic vol] 93.1 fL 77.0 - 99.0 fL [facility] Monocytes (Bld) [#/Vol] 0.5 10*3/uL 0.0 - 0.9 10*3/uL [facility] Monocytes/100 WBC (Bld) 10.5 % 5.0 - 13.0 % [facility] Neutrophils (Bld) [#/Vol] 2.4 10*3/uL 1.8 - 7.5 10*3/uL [facility] Neutrophils/100 WBC (Bld) 52.5 % 38.0 - 82.0 % [facility] Nucleated RBC/100 WBC (Bld) [Ratio] 0.0 % [facility] Platelet mean volume (Bld) [Entitic vol] 10.4 fL 9.0 - 12.7 fL [facility] Platelets (Bld) [#/Vol] 207 10*3/uL 140 - 440 10*3/uL [facility] RBC (Bld) [#/Vol] 3.20 10*6/uL Low 3.80 - 5.2 0 10*6/uL [facility] WBC (Bld) [#/Vol] 4.5 10*3/uL 3.6 - 10.7 10*3/uL [facility] CBC WITH AUTO DIFFERENTIALon 04-06-2024 Basophils (Bld) [#/Vol] 0.1 10*3/uL Normal 0.0-0.2 [facility] Comment on above: Performed By: #### L [id number] ####Cannon Pinion Adjuster: VELMA VALADEZ ([id number])[facility] ([facility])[address] [place] [address] Basophils/100 WBC (Bld) 1.1 % Normal 0.0-2.0 [facility] Comment on above: Performed By: #### L [id number] ####Cannon Pinion Adjuster: VELMA VALADEZ ([id number])[facility] ([facility])[address] [place] [address] Eosinophils (Bld) [#/Vol] 0.1 10*3/uL Normal 0.0-0.5 [facility] Comment on above: Performed By: #### L [id number] ####Cannon Pinion Adjuster: VELMA VALADEZ ([id number])[facility])[address] [place] [address] Eosinophils/100 WBC (Bld) 2.7 % Normal 0.0-6.0 [facility] Comment on above: Performed By: #### L [id number] ####Cannon Pinion Adjuster: VELMA VALADEZ ([id number])[facility])[address] [place] [address] Erythrocyte distribution width (RBC) [Ratio] 14.3 % Normal 11.5-15.0 [facility] Comment on above: Performed By: #### L [id number] ####Cannon Pinion Adjuster: VELMA VALADEZ ([id number])[address] Hematocrit (Bld) [Volume fraction] 29.8 % Low 35.0-47.0 [facility] Comment on above: Performed By: #### L [id number] ####Cannon Pinion Adjuster: VELMA VALADEZ ([id number])[address] Hemoglobin (Bld) [Mass/Vol] 9.7 g/dL Low 11.7-16.0 [facility] Comment on above: Performed By: #### L [id number] ####Cannon Pinion Adjuster: VELMA VALADEZ ([id number])[address] IMMATURE GRANS % 0.2 % Normal 0.0-2.0 [facility] Comment on above: Performed By: #### L [id number] ####Cannon Pinion Adjuster: VELMA VALADEZ ([id number])[address] IMMATURE GRANS ABSOLUTE 0.0 10*3/uL Normal <0.1 [facility] Comment on above: Performed By: #### L [id number] ####Cannon Pinion Adjuster: VELMA VALADEZ ([id number])[facility])[address] [place] [address] Lymphocytes (Bld) [#/Vol] 1.5 10*3/uL Normal 1.0-4.3 [facility] Comment on above: Performed By: #### L [id number] ####Cannon Pinion Adjuster: VELMA VALADEZ ([id number])[facility])[address] [place] [address] Lymphocytes/100 WBC (Bld) 33.0 % Normal 15.0-45.0 [facility] Comment on above: Performed By: #### L [id number] ####Cannon Pinion Adjuster: VELMA VALADEZ ([id number])[facility])[address] [place] [address] MCH (RBC) [Entitic mass] 30.3 pg Normal 26.0-34.0 [facility] Comment on above: Performed By: #### L [id number] ####Cannon Pinion Adjuster: VELMA VALADEZ ([id number])[facility])[address] [place] [address] MCHC 32.6 % Normal 30.5-36.0 [facility] Comment on above: Performed By: #### L [id number] ####Cannon Pinion Adjuster: VELMA VALADEZ ([id number])[facility])[address] [place] [address] MCV (RBC) [Entitic vol] 93.1 fL Normal 77.0-99.0 [facility] Comment on above: Performed By: #### L [id number] ####Cannon Pinion Adjuster: VELMA VALADEZ ([id number])[facility])[address] [place] [address] Monocytes (Bld) [#/Vol] 0.5 10*3/uL Normal 0.0-0.9 [facility] Comment on above: Performed By: #### L [id number] ####Cannon Pinion Adjuster: VELMA VALADEZ ([id number])[facility] [place] [address] Monocytes/100 WBC (Bld) 10.5 % Normal 5.0-13.0 [facility] Comment on above: Performed By: #### L [id number] ####Cannon Pinion Adjuster: VELMA VALADEZ ([id number])[facility] ([facility])[address] [place] [address] NEUTROPHILS ABSOLUTE 2.4 10*3/uL Normal 1.8-7.5 [facility] Comment on above: Performed By: #### L [id number] ####Cannon Pinion Adjuster: VELMA VALADEZ ([id number])[facility] ([facility])[address] [place] [address] Neutrophils/100 WBC (Bld) 52.5 % Normal 38.0-82.0 [facility] Comment on above: Performed By: #### L [id number] ####Cannon Pinion Adjuster: VELMA VALADEZ ([id number])[facility] ([facility])[address] [place] [address] NRBC 0.0 /100 WBCs Normal 0.0-2.0 [facility] Comment on above: Performed By: #### L [id number] ####Cannon Pinion Adjuster: VELMA VALADEZ ([id number])[facility] ([facility])[address] [place] [address] Platelet mean volume (Bld) [Entitic vol] 10.4 fL Normal 9.0-12.7 [facility] Comment on above: Performed By: #### L [id number] ####Cannon Pinion Adjuster: VELMA VALADEZ ([id number])[facility] ([facility])[address] [place] [address] [place] Platelets (Bld) [#/Vol] 207 10*3/uL Normal 140-440 [facility] Comment on above: Performed By: #### L [id number] ####Cannon Pinion Adjuster: VELMA VALADEZ ([id number])[facility] ([facility])[address] [place] [address] [place] RBC (Bld) [#/Vol] 3.20 10*6/uL Low 3.80-5.20 [facility] Comment on above: Performed By: #### L [id number] ####Cannon Pinion Adjuster: VELMA VALADEZ ([id number])[facility] ([facility])[address] [place] [address] WBC (Bld) [#/Vol] 4.5 10*3/uL Normal 3.6-10.7 [facility] Comment on above: Performed By: #### L [id number] ####Cannon Pinion Adjuster: VELMA VALADEZ ([id number])[facility] [place] [address] No Panel Informationon 04-06 There is no interpretation needed for this exam. IMAGING Nursing Noteon 04-06-2024 Nursing Note Patient report rader d to 4N RN and denies any further questions. Patient resting comfortably and no signs of distress. Per resident patient to lay flat for 2 hours and restart heparin GTT at 1215. Transport notified. Normal [facility] Op Noteon 04-06-2024 Op Note Normal [facility] Progress Noteon 04-06-2024 Progress Note Normal [facility] Progress Note Normal [facility] Progress Note Normal [facility] aPTT Coag (Bld) [Time]on aPTT Coag (PPP) [Time] 43.3 s High 20.0 - 30.5 s [facility] Interpretation and review of laboratory results Abnormal [facility] NOTE: The therapeuti c time for Heparin anticoagulation, based on Xa activity inhibition, is an APTT of 46-80 seconds. [facility] aPTT Coag (PPP) [Time] 97.6 s High 20.0 - 30.5 s [facility] Interpretation and review of laboratory results Abnormal [facility] NOTE: The therapeuti c time for Heparin anticoagulation, based on Xa activity inhibition, is an APTT of 46-80 seconds. [facility] 36on 04-05-2024 36 Surgery: Inpatient R LE venous mechanical thrombectomy Date of surgery: 04/06/24 Pre-testing: inpatient CPT codes: 70411 ICD 10: I82.401 Post-op or OV: Adriane to schedule Reps: Selvin Elaine) notified 04/05/24 Normal [facility] APTTon 04-05-2024 aPTT Coag (Bld) [Time] 76.6 s High 20.0-30.5 [facility] Comment on above: Result Comment: BUBBA Garcia COMMENTS:NOTE: The therapeutic time for Heparin anticoagulation, based on Xa activity inhibition, is an APTT of 46-80 seconds. Performed By: #### L AB325, [id number] ####Cannon Pinion Adjuster: VELMA VALADEZ ([id number])[facility])[address] [place] [address] aPTT Coag (Bld) [Time] 69.9 s High 20.0-30.5 [facility] Comment on above: Result Comment: BUBBA Garcia COMMENTS:NOTE: The therapeutic time for Heparin anticoagulation, based on Xa activity inhibition, is an APTT of 46-80 seconds. Performed By: #### L AB325 ####Cannon Pinion Adjuster: VELMA VALADEZ ([id number])[address] aPTT Coag (Bld) [Time] 88.8 s High 20.0-30.5 [facility] Comment on above: Result Comment: BUBBA Garcia COMMENTS:NOTE: The therapeutic time for Heparin anticoagulation, based on Xa activity inhibition, is an APTT of 46-80 seconds. Performed By: #### L [id number], [id number] ####Cannon Pinion Adjuster: VELMA VALADEZ ([id number])[facility])[address] [place] [address] aPTT Coag (Bld) [Time] 109.7 s High 20.0-30.5 [facility] Comment on above: Result Comment: BUBBA Garcia COMMENTS:NOTE: The therapeutic time for Heparin anticoagulation, based on Xa activity inhibition, is an APTT of 46-80 seconds. Performed By: #### L AB325 ####Cannon Pinion Adjuster: VELMA VALADEZ ([id number])[facility])[address] [place] [address] BASIC METABOLIC PANELon Anion gap [Moles/Vol] 3 mmol/L Normal 3-13 [facility] Comment on above: Performed By: #### L AB15 ####Cannon Pinion Adjuster: VELMA VALADEZ ([id number])[facility] [place] [address] Calcium [Mass/Vol] 8.7 mg/dL Normal 8.4-10.4 [facility] Comment on above: Performed By: #### L AB15 ####Cannon Pinion Adjuster: VELMA VALADEZ ([id number])[facility] [place] [address] Chloride [Moles/Vol] 113 mmol/L High 98-107 [facility] Comment on above: Performed By: #### L AB15 ####Cannon Pinion Adjuster: VELMA VALADEZ ([id number])[facility] [place] [address] CO2 [Moles/Vol] 17 mmol/L Low 22-30 [facility] Comment on above: Performed By: #### L AB15 ####Cannon Pinion Adjuster: VELMA VALADEZ ([id number])[facility] ([facility])[address] [place] [address] Creatinine [Mass/Vol] 1.12 mg/dL High 0.52-1.04 [facility] Comment on above: Performed By: #### L AB15 ####Cannon Pinion Adjuster: VELMA VALDAEZ ([id number])[facility] ([facility])[address] [place] [address] GLOMERULAR FILTRATION RATE ML/MIN/1.73 SQ M.PREDICTED 48.6 mL/min/1.73m*2 Low >60.0 [facility] Comment on above: Result Comment: Calc ulation based on the Chronic Kidney Disease Epidemiology Collaboration (CKD-EPI) equation refit without adjustment for race Performed By: #### L AB15 ####Cannon Pinion Adjuster: VELMA VALADEZ ([id number])[facility] [place] [address] Glucose [Mass/Vol] 102 mg/dL High 70-100 [facility] Comment on above: Performed By: #### L AB15 ####Cannon Pinion Adjuster: EVLMA VALADEZ ([id number])[facility] [place] [address] Potassium [Moles/Vol] 4.8 mmol/L Normal 3.5-5.1 [facility] Comment on above: Performed By: #### L AB15 ####Cannon Pinion Adjuster: VELMA VALADEZ ([id number])[facility] [place] [address] Sodium [Moles/Vol] 133 mmol/L Low 135-145 [facility] Comment on above: Performed By: #### L AB15 ####Cannon Pinion Adjuster: VELMA VALADEZ ([id number])[facility] [place] [address] Urea nitrogen [Mass/Vol] 25 mg/dL High 7-17 [facility] Comment on above: Performed By: #### L AB15 ####Cannon Pinion Adjuster: VELMA VALADEZ ([id number])[facility] [place] [address] Basic metabolic 1998 panelon 04-05-2024 Anion gap [Moles/Vol] 3 mmol/L 3 - 13 mmol/L [facility] Calcium [Mass/Vol] 8.7 mg/dL 8.4 - 10. 4 mg/dL [facility] Chloride [Moles/Vol] 113 mmol/L High 98 - 10 7 mmol/L [facility] CO2 [Moles/Vol] 17 mmol/L Low 22 - 30 mmol/L [facility] Creatinine [Mass/Vol] 1.12 mg/dL High 0.52 - 1.04 mg/dL [facility] GFR/1.73 sq M.predicted (S/P/Bld) [Vol rate/Area] 48.6 mL/min Low - PINF [facility] Comment on above: Calculation based on the Chronic Kidney Disease Epidemiology Collaboration (CKD-EPI) equation refit without adjustment for race Glucose [Mass/Vol] 102 mg/dL High 70 - 100 mg/dL [facility] Interpretation and review of laboratory results Abnormal [facility] Potassium [Moles/Vol] 4.8 mmol/L 3.5 - 5.1 mmol/L [facility] Sodium [Moles/Vol] 133 mmol/L Low 135 - 145 mmol/L [facility] Urea nitrogen [Mass/Vol] 25 mg/dL High 7 - 17 mg/dL [facility] CARECOORDon 04-05-2024 [place] Normal [facility] CBC W Auto Differential pane l (Bld)on 04-05-2024 Basophils (Bld) [#/Vol] 0.1 10*3/uL 0.0 - 0.2 10*3/uL [facility] Basophils/100 WBC (Bld) 1.0 % 0.0 - 2.0 % [facility] Eosinophils (Bld) [#/Vol] 0.2 10*3/uL 0.0 - 0.5 10*3/uL [facility] Eosinophils/100 WBC (Bld) 2.9 % 0.0 - 6.0 % [facility] Erythrocyte distribution width (RBC) [Ratio] 14.4 % 11.5 - 15.0 % [facility] Hematocrit (Bld) [Volume fraction] 32.3 % Low 35.0 - 47.0 % [facility] Hemoglobin (Bld) [Mass/Vol] 10.6 g/dL Low 11.7 - 16.0 g/dL [facility] Immature granulocytes (Bld) [#/Vol] 0.0 10*3/uL NINF - 0.1 10*3/uL [facility] Immature granulocytes/100 WBC (Bld) 0.3 % 0.0 - 2.0 % [facility] Interpretation and review of laboratory results Abnormal [facility] Lymphocytes (Bld) [#/Vol] 1.7 10*3/uL 1.0 - 4.3 10*3/uL [facility] Lymphocytes/100 WBC (Bld) 27.5 % 15.0 - 45.0 % [facility] MCH (RBC) [Entitic mass] 30.7 pg 26.0 - 34.0 pg [facility] MCHC (RBC) [Mass/Vol] 32.8 % 30.5 - 36.0 % [facility] MCV (RBC) [Entitic vol] 93.6 fL 77.0 - 99.0 fL [facility] Monocytes (Bld) [#/Vol] 0.6 10*3/uL 0.0 - 0.9 10*3/uL [facility] Monocytes/100 WBC (Bld) 9.0 % 5.0 - 13.0 % [facility] Neutrophils (Bld) [#/Vol] 3.6 10*3/uL 1.8 - 7.5 10*3/uL [facility] Neutrophils/100 WBC (Bld) 59.3 % 38.0 - 82.0 % [facility] Nucleated RBC/100 WBC (Bld) [Ratio] 0.0 % [facility] Platelet mean volume (Bld) [Entitic vol] 10.1 fL 9.0 - 12.7 fL [facility] Platelets (Bld) [#/Vol] 204 10*3/uL 140 - 440 10*3/uL [facility] RBC (Bld) [#/Vol] 3.45 10*6/uL Low 3.80 - 5.2 0 10*6/uL [facility] WBC (Bld) [#/Vol] 6.1 10*3/uL 3.6 - 10.7 10*3/uL [facility] CBC WITH AUTO DIFFERENTIALon 04-05-2024 Basophils (Bld) [#/Vol] 0.1 10*3/uL Normal 0.0-0.2 [facility] Comment on above: Performed By: #### L [id number] ####Cannon Pinion Adjuster: VELMA [id number])[facility] ([address] Basophils/100 WBC (Bld) 1.0 % Normal 0.0-2.0 [facility] Comment on above: Performed By: #### L [id number] ####Cannon Pinion Adjuster: VELMA [id number])[facility] ([facility])[address] [place] [address] Eosinophils (Bld) [#/Vol] 0.2 10*3/uL Normal 0.0-0.5 [facility] Comment on above: Performed By: #### L [id number] ####Cannon Pinion Adjuster: VELMA [id number])[facility])[address] [place] [address] Eosinophils/100 WBC (Bld) 2.9 % Normal 0.0-6.0 [facility] Comment on above: Performed By: #### L [id number] ####Cannon Pinion Adjuster: VELMA VALADEZ ([id number])[facility])[address] [place] [address] Erythrocyte distribution width (RBC) [Ratio] 14.4 % Normal 11.5-15.0 [facility] Comment on above: Performed By: #### L [id number] ####Cannon Pinion Adjuster: VELMA VALADEZ ([id number])[facility])[address] [place] [address] Hematocrit (Bld) [Volume fraction] 32.3 % Low 35.0-47.0 [facility] Comment on above: Performed By: #### L [id number] ####Cannon Pinion Adjuster: VELMA VALADEZ ([id number])[facility])[address] [place] [address] Hemoglobin (Bld) [Mass/Vol] 10.6 g/dL Low 11.7-16.0 [facility] Comment on above: Performed By: #### L [id number] ####Cannon Pinion Adjuster: VELMA VALADEZ ([id number])[facility])[address] [place] [address] IMMATURE GRANS % 0.3 % Normal 0.0-2.0 [facility] Comment on above: Performed By: #### L [id number] ####Cannon Pinion Adjuster: VELMA VALADEZ ([id number])[facility])[address] [place] [address] IMMATURE GRANS ABSOLUTE 0.0 10*3/uL Normal <0.1 [facility] Comment on above: Performed By: #### L [id number] ####Cannon Pinion Adjuster: VELMA VALADEZ ([id number])[facility])[address] [place] [address] [place] Lymphocytes (Bld) [#/Vol] 1.7 10*3/uL Normal 1.0-4.3 [facility] Comment on above: Performed By: #### L [id number] ####Cannon Pinion Adjuster: VELMA VALADEZ ([id number])[facility])[address] [place] [address] Lymphocytes/100 WBC (Bld) 27.5 % Normal 15.0-45.0 [facility] Comment on above: Performed By: #### L [id number] ####Cannon Pinion Adjuster: VELMA VALADEZ ([id number])[facility])[address] [place] [address] MCH (RBC) [Entitic mass] 30.7 pg Normal 26.0-34.0 [facility] Comment on above: Performed By: #### L [id number] ####Cannon Pinion Adjuster: VELMA VALADEZ ([id number])[facility])[address] [place] [address] MCHC 32.8 % Normal 30.5-36.0 [facility] Comment on above: Performed By: #### L [id number] ####Cannon Pinion Adjuster: VELMA VALADEZ ([id number])[facility])[address] [place] [address] MCV (RBC) [Entitic vol] 93.6 fL Normal 77.0-99.0 [facility] Comment on above: Performed By: #### L [id number] ####Cannon Pinion Adjuster: VELMA VALADEZ ([id number])[facility])[address] [place] [address] Monocytes (Bld) [#/Vol] 0.6 10*3/uL Normal 0.0-0.9 [facility] Comment on above: Performed By: #### L [id number] ####Cannon Pinion Adjuster: VELMA VALADEZ ([id number])[facility])[address] [place] [address] Monocytes/100 WBC (Bld) 9.0 % Normal 5.0-13.0 [facility] Comment on above: Performed By: #### L [id number] ####Cannon Pinion Adjuster: VELMA VALADEZ ([id number])[facility] ([facility])[address] [place] [address] NEUTROPHILS ABSOLUTE 3.6 10*3/uL Normal 1.8-7.5 [facility] Comment on above: Performed By: #### L [id number] ####Cannon Pinion Adjuster: VELMA VALADEZ ([id number])[facility] ([facility])[address] [place] [address] Neutrophils/100 WBC (Bld) 59.3 % Normal 38.0-82.0 [facility] Comment on above: Performed By: #### L [id number] ####Cannon Pinion Adjuster: VELMA VALADEZ ([id number])[facility] ([facility])[address] [place] [address] NRBC 0.0 /100 WBCs Normal 0.0-2.0 [facility] Comment on above: Performed By: #### L [id number] ####Cannon Pinion Adjuster: VELMA VALADEZ ([id number])[facility] ([facility])[address] [place] [address] Platelet mean volume (Bld) [Entitic vol] 10.1 fL Normal 9.0-12.7 [facility] Comment on above: Performed By: #### L [id number] ####Cannon Pinion Adjuster: VELMA VALADEZ ([id number])[facility])[address] [place] [address] Platelets (Bld) [#/Vol] 204 10*3/uL Normal 140-440 [facility] Comment on above: Performed By: #### L [id number] ####Cannon Pinion Adjuster: VELMA VALADEZ ([id number])[facility] ([facility])[address] [place] [address] RBC (Bld) [#/Vol] 3.45 10*6/uL Low 3.80-5.20 [facility] Comment on above: Performed By: #### L [id number] ####Cannon Pinion Adjuster: VELMA VALADEZ ([id number])[facility])[address] [place] [address] WBC (Bld) [#/Vol] 6.1 10*3/uL Normal 3.6-10.7 [facility] Comment on above: Performed By: #### Weston [id number] ####Cannon Pinion Adjuster: VELMA VALADEZ ([id number])[facility])[address] [place] [address] [place] IDNon 04-05-2024 IDN The patient is Moderately Stable - Low risk of patient condition declining or worsening The patient's goals for the shift include met The clinical goals for the shift include met Normal [facility] - Coagulationon 0 04-05-2024 PT Coag (Bld) [Time] 11.4 s 9.0 - 1 2.0 s [facility] PT Coag (Bld) [Time] 11.9 s 9.0 - 1 2.0 s [facility] No Panel Informationon 04-05 [facility] PROTHROMBIN TIMEon INR Coag (PPP) [Relative time] 1.0 {INR} Normal 0.9-1.1 [facility] Comment on above: Performed By: #### Weston [id number], [id number] ####Cannon Pinion Adjuster: VELMA VALADEZ ([id number])[facility])[address] [place] [address] PT Coag (PPP) [Time] 11.4 s Normal 9.0-12.0 [facility] Comment on above: Performed By: #### Weston AB325, [id number] ####Cannon Pinion Adjuster: VELMA VALADEZ ([id number])[address] INR Coag (PPP) [Relative time] 1.1 {INR} Normal 0.9-1.1 [facility] Comment on above: Result Comment: Timothy [...] Myocardial Infarction Performed By: #### L [id number], [id number] ####Cannon Pinion Adjuster: VELMA VALADEZ ([id number])[facility] ([facility])[address] [place] [address] PT Coag (PPP) [Time] 11.9 s Normal 9.0-12.0 [facility] Comment on above: Performed By: #### L [id number], [id number] ####Cannon Pinion Adjuster: VELMA VALADEZ ([id number])[facility] ([facility])[address] [place] [address] PT Coag (Bld) [Time]on 04-05 INR Coag (PPP) [Relative time] 1.0 {INR} 0.9 - 1.1 [facility] Interpretation and review of laboratory results Normal [facility] INR Coag (PPP) [Relative time] 1.1 {INR} 0.9 - 1.1 [facility] Comment on above: Recommended Anticoag ulant [...] Interpretation and review of laboratory results Normal [facility] Progress Noteon 04-05-2024 Progress Note Normal [facility] Progress Note Nutrition rescreen completed. Chart reviewed. Patient to be monitored and followed by the diet graphics edit technician. KEITH Harmon Normal [facility] Progress Note Normal [facility] Progress Note Normal [facility] aPTT Coag (Bld) [Time]on aPTT Coag (PPP) [Time] 76.6 s High 20.0 - 30.5 s [facility] Interpretation and review of laboratory results Abnormal [facility] NOTE: The therapeuti c time for Heparin anticoagulation, based on Xa activity inhibition, is an APTT of 46-80 seconds. [facility] aPTT Coag (PPP) [Time] 69.9 s High 20.0 - 30.5 s [facility] Interpretation and review of laboratory results Abnormal [facility] NOTE: The therapeuti c time for Heparin anticoagulation, based on Xa activity inhibition, is an APTT of 46-80 seconds. [facility] aPTT Coag (PPP) [Time] 88.8 s High 20.0 - 30.5 s [facility] Interpretation and review of laboratory results Abnormal [facility] NOTE: The therapeuti c time for Heparin anticoagulation, based on Xa activity inhibition, is an APTT of 46-80 seconds. [facility] aPTT Coag (Bld) [Time]Lissettee isidoro By: Juni Millard on 04-05-2024 aPTT Coag (PPP) [Time] 109.7 s High 20.0 - 30.5 s [facility] Interpretation and review of laboratory results Abnormal [facility] NOTE: The therapeuti c time for Heparin anticoagulation, based on Xa activity inhibition, is an APTT of 46-80 seconds. [facility] [id number] 04-04-2024 [id number] Normal [facility] [id number] Normal [facility] APTTon 04-04-2024 aPTT Coag (Bld) [Time] 81.8 s High 20.0-30.5 [facility] Comment on above: Result Comment: BUBBA Garcia COMMENTS:NOTE: The therapeutic time for Heparin anticoagulation, based on Xa activity inhibition, is an APTT of 46-80 seconds. Performed By: #### L [id number] ####Cannon Pinion Adjuster: VELMA VALADEZ ([id number])[address] aPTT Coag (Bld) [Time] 81.4 s High 20.0-30.5 [facility] Comment on above: Result Comment: BUBBA Garcia COMMENTS:NOTE: The therapeutic time for Heparin anticoagulation, based on Xa activity inhibition, is an APTT of 46-80 seconds. Performed By: #### L [id number] ####Cannon Pinion Adjuster: VELMA VALADEZ ([id number])[facility] ([facility])[address] [place] [address] aPTT Coag (Bld) [Time] 132.2 s Critically high 20.0-30. 5 [facility] Comment on above: Result Comment: BUBBA Garcia COMMENTS:NOTE: The therapeutic time for Heparin anticoagulation, based on Xa activity inhibition, is an APTT of 46-80 seconds. Performed By: #### L AB325 ####Cannon Pinion Adjuster: VELMA VALADEZ ([id number])[facility] ([facility])[address] [place] [address] BASIC METABOLIC PANELon 03-18 Anion gap [Moles/Vol] 8 mmol/L Normal 3-13 [facility] Comment on above: Performed By: #### L AB15 ####Cannon Pinion Adjuster: VELMA VALADEZ ([id number])[facility] ([facility])[address] [place] [address] Calcium [Mass/Vol] 9.3 mg/dL Normal 8.4-10.4 [facility] Comment on above: Performed By: #### L AB15 ####Cannon Pinion Adjuster: VELMA VALADEZ ([id number])[facility] ([facility])[address] [place] [address] Chloride [Moles/Vol] 110 mmol/L High 98-107 [facility] Comment on above: Performed By: #### L AB15 ####Cannon Pinion Adjuster: VELMA VALADEZ ([id number])[facility] ([facility])[address] [place] [address] [place] CO2 [Moles/Vol] 18 mmol/L Low 22-30 [facility] Comment on above: Performed By: #### L AB15 ####Cannon Pinion Adjuster: VELMA VALADEZ ([id number])[facility])[address] [place] [address] Creatinine [Mass/Vol] 1.45 mg/dL High 0.52-1.04 [facility] Comment on above: Performed By: #### L AB15 ####Cannon Pinion Adjuster: VELMA [id number])[facility] ([facility])[address] [place] [address] GLOMERULAR FILTRATION RATE ML/MIN/1.73 SQ M.PREDICTED 35.6 mL/min/1.73m*2 Low >60.0 [facility] Comment on above: Result Comment: Calc ulation based on the Chronic Kidney Disease Epidemiology Collaboration (CKD-EPI) equation refit without adjustment for race Performed By: #### L AB15 ####Cannon Pinion Adjuster: VELMA VALADEZ ([id number])[facility] ([facility])[address] [place] [address] Glucose [Mass/Vol] 100 mg/dL Normal 70-100 [facility] Comment on above: Performed By: #### L AB15 ####Cannon Pinion Adjuster: VELMA VALADEZ ([id number])[facility])[address] [place] [address] Potassium [Moles/Vol] 4.5 mmol/L Normal 3.5-5.1 [facility] Comment on above: Performed By: #### L AB15 ####Cannon Pinion Adjuster: VELMA VALADEZ ([id number])[facility] ([facility])[address] [place] [address] Sodium [Moles/Vol] 135 mmol/L Normal 135-145 [facility] Comment on above: Performed By: #### L AB15 ####Cannon Pinion Adjuster: VELMA VALADEZ ([id number])[facility])[address] [place] [address] Urea nitrogen [Mass/Vol] 30 mg/dL High 7-17 [facility] Comment on above: Performed By: #### L AB15 ####Cannon Pinion Adjuster: VELMA VALADEZ ([id number])[facility])[address] [place] [address] Basic metabolic 1998 panelOr dered By: Marielle Garcia on 04-04-2024 Anion gap [Moles/Vol] 8 mmol/L 3 - 13 mmol/L [facility] Calcium [Mass/Vol] 9.3 mg/dL 8.4 - 10. 4 mg/dL [facility] Chloride [Moles/Vol] 110 mmol/L High 98 - 10 7 mmol/L [facility] CO2 [Moles/Vol] 18 mmol/L Low 22 - 30 mmol/L [facility] Creatinine [Mass/Vol] 1.45 mg/dL High 0.52 - 1.04 mg/dL [facility] GFR/1.73 sq M.predicted (S/P/Bld) [Vol rate/Area] 35.6 mL/min Low - PINF [facility] Comment on above: Calculation based on the Chronic Kidney Disease Epidemiology Collaboration (CKD-EPI) equation refit without adjustment for race Glucose [Mass/Vol] 100 mg/dL 70 - 100 mg/dL [facility] Interpretation and review of laboratory results Abnormal [facility] Potassium [Moles/Vol] 4.5 mmol/L 3.5 - 5.1 mmol/L [facility] Sodium [Moles/Vol] 135 mmol/L 135 - 145 mmol/L [facility] Urea nitrogen [Mass/Vol] 30 mg/dL High 7 - 17 mg/dL [facility] CARECOORDon 04-04-2024 CARECOORD Normal [facility] CBC W Auto Differential pane l (Bld)on 04-04-2024 Basophils (Bld) [#/Vol] 0.1 10*3/uL 0.0 - 0.2 10*3/uL [facility] Basophils/100 WBC (Bld) 0.7 % 0.0 - 2.0 % [facility] Eosinophils (Bld) [#/Vol] 0.3 10*3/uL 0.0 - 0.5 10*3/uL [facility] Eosinophils/100 WBC (Bld) 3.2 % 0.0 - 6.0 % [facility] Erythrocyte distribution width (RBC) [Ratio] 14.2 % 11.5 - 15.0 % [facility] Hematocrit (Bld) [Volume fraction] 38.8 % 35.0 - 47.0 % [facility] Hemoglobin (Bld) [Mass/Vol] 12.5 g/dL 11.7 - 16.0 g/dL [facility] Immature granulocytes (Bld) [#/Vol] 0.1 10*3/uL High NINF - 0.1 10*3/uL [facility] Immature granulocytes/100 WBC (Bld) 0.6 % 0.0 - 2.0 % [facility] Interpretation and review of laboratory results Abnormal [facility] Lymphocytes (Bld) [#/Vol] 1.6 10*3/uL 1.0 - 4.3 10*3/uL [facility] Lymphocytes/100 WBC (Bld) 19.2 % 15.0 - 45.0 % [facility] MCH (RBC) [Entitic mass] 29.7 pg 26.0 - 34.0 pg [facility] MCHC (RBC) [Mass/Vol] 32.2 % 30.5 - 36.0 % [facility] MCV (RBC) [Entitic vol] 92.2 fL 77.0 - 99.0 fL [facility] Monocytes (Bld) [#/Vol] 0.8 10*3/uL 0.0 - 0.9 10*3/uL [facility] Monocytes/100 WBC (Bld) 9.9 % 5.0 - 13.0 % [facility] Neutrophils (Bld) [#/Vol] 5.3 10*3/uL 1.8 - 7.5 10*3/uL [facility] Neutrophils/100 WBC (Bld) 66.4 % 38.0 - 82.0 % [facility] Nucleated RBC/100 WBC (Bld) [Ratio] 0.0 % [facility] Platelet mean volume (Bld) [Entitic vol] 10.0 fL 9.0 - 12.7 fL [facility] Platelets (Bld) [#/Vol] 266 10*3/uL 140 - 440 10*3/uL [facility] RBC (Bld) [#/Vol] 4.21 10*6/uL 3.80 - 5.2 0 10*6/uL [facility] WBC (Bld) [#/Vol] 8.1 10*3/uL 3.6 - 10.7 10*3/uL [facility] CBC WITH AUTO DIFFERENTIALon 04-04-2024 Basophils (Bld) [#/Vol] 0.1 10*3/uL Normal 0.0-0.2 [facility] Comment on above: Performed By: #### L [id number] ####Cannon Pinion Adjuster: VELMA VALADEZ ([id number])[facility] ([address] Basophils/100 WBC (Bld) 0.7 % Normal 0.0-2.0 [facility] Comment on above: Performed By: #### L [id number] ####Cannon Pinion Adjuster: VELMA VALADEZ ([id number])[facility])[address] [place] [address] Eosinophils (Bld) [#/Vol] 0.3 10*3/uL Normal 0.0-0.5 [facility] Comment on above: Performed By: #### L [id number] ####Cannon Pinion Adjuster: VELMA VALADEZ ([id number])[facility])[address] [place] [address] Eosinophils/100 WBC (Bld) 3.2 % Normal 0.0-6.0 [facility] Comment on above: Performed By: #### L [id number] ####Cannon Pinion Adjuster: VELMA VALADEZ ([id number])[facility])[address] [place] [address] Erythrocyte distribution width (RBC) [Ratio] 14.2 % Normal 11.5-15.0 [facility] Comment on above: Performed By: #### L [id number] ####Cannon Pinion Adjuster: VELMA VALADEZ ([id number])[facility])[address] [place] [address] Hematocrit (Bld) [Volume fraction] 38.8 % Normal 35.0-47.0 [facility] Comment on above: Performed By: #### L [id number] ####Cannon Pinion Adjuster: VELMA VALADEZ ([id number])[facility])[address] [place] [address] Hemoglobin (Bld) [Mass/Vol] 12.5 g/dL Normal 11.7-16.0 [facility] Comment on above: Performed By: #### L [id number] ####Cannon Pinion Adjuster: VELMA VALADEZ ([id number])[facility])[address] [place] [address] IMMATURE GRANS % 0.6 % Normal 0.0-2.0 [facility] Comment on above: Performed By: #### L [id number] ####Cannon Pinion Adjuster: VELMA VALADEZ ([id number])[address] IMMATURE GRANS ABSOLUTE 0.1 10*3/uL High <0.1 [facility] Comment on above: Performed By: #### L [id number] ####Cannon Pinion Adjuster: VELMA VALADEZ ([id number])[facility])[address] [place] [address] Lymphocytes (Bld) [#/Vol] 1.6 10*3/uL Normal 1.0-4.3 [facility] Comment on above: Performed By: #### L [id number] ####Cannon Pinion Adjuster: VELMA VALADEZ ([id number])[address] Lymphocytes/100 WBC (Bld) 19.2 % Normal 15.0-45.0 [facility] Comment on above: Performed By: #### L [id number] ####Cannon Pinion Adjuster: VELMA VALADEZ ([id number])[facility])[address] [place] [address] MCH (RBC) [Entitic mass] 29.7 pg Normal 26.0-34.0 [facility] Comment on above: Performed By: #### L [id number] ####Cannon Pinion Adjuster: VELMA VALADEZ ([id number])[address] MCHC 32.2 % Normal 30.5-36.0 [facility] Comment on above: Performed By: #### L [id number] ####Cannon Pinion Adjuster: VELMA VALADEZ ([id number])[address] MCV (RBC) [Entitic vol] 92.2 fL Normal 77.0-99.0 [facility] Comment on above: Performed By: #### L [id number] ####Cannon Pinion Adjuster: VELMA VALADEZ ([id number])[facility] [place] [address] Monocytes (Bld) [#/Vol] 0.8 10*3/uL Normal 0.0-0.9 [facility] Comment on above: Performed By: #### L [id number] ####Cannon Pinion Adjuster: VELMA VALADEZ ([id number])[facility] ([facility])[address] [place] [address] Monocytes/100 WBC (Bld) 9.9 % Normal 5.0-13.0 [facility] Comment on above: Performed By: #### L [id number] ####Cannon Pinion Adjuster: VELMA VALADEZ ([id number])[facility] ([facility])[address] [place] [address] NEUTROPHILS ABSOLUTE 5.3 10*3/uL Normal 1.8-7.5 [facility] Comment on above: Performed By: #### L [id number] ####Cannon Pinion Adjuster: VELMA VALADEZ ([id number])[facility] ([facility])[address] [place] [address] Neutrophils/100 WBC (Bld) 66.4 % Normal 38.0-82.0 [facility] Comment on above: Performed By: #### L [id number] ####Cannon Pinion Adjuster: VELMA VALADEZ ([id number])[facility] ([facility])[address] [place] [address] NRBC 0.0 /100 WBCs Normal 0.0-2.0 [facility] Comment on above: Performed By: #### L [id number] ####Cannon Pinion Adjuster: VELMA VALADEZ ([id number])[facility] ([facility])[address] [place] [address] Platelet mean volume (Bld) [Entitic vol] 10.0 fL Normal 9.0-12.7 [facility] Comment on above: Performed By: #### L [id number] ####Cannon Pinion Adjuster: VELMA VALADEZ ([id number])[facility] ([facility])[address] [place] [address] Platelets (Bld) [#/Vol] 266 10*3/uL Normal 140-440 [facility] Comment on above: Performed By: #### L [id number] ####[employer] Adjuster: VELMA VALADEZ ([id number])[facility] ([facility])[address] [place] [address] RBC (Bld) [#/Vol] 4.21 10*6/uL Normal 3.80-5.20 [facility] Comment on above: Performed By: #### L [id number] ####[employer] Adjuster: VELMA VALADEZ ([id number])[facility] ([facility])[address] [place] [address] WBC (Bld) [#/Vol] 8.1 10*3/uL Normal 3.6-10.7 [facility] Comment on above: Performed By: #### L [id number] ####[employer] Adjuster: VELMA VALADEZ ([id number])[facility] ([facility])[address] [place] [address] Consulton 04-04-2024 Consult [facility] Consult [facility] ECG 12-LEADon 04-04-2024 ECG 12-LEAD IMPRESSION: Atrial fibrillation Borderline T abnormalities, inferior leads Compared to ECG 08/28/11 Sinus rhythm no longer noted Electronically Signed On 04-04-2024 03:48:37 EDT by Sourav Swenson [facility] ED Nursing Noteon 04-04-2024 ED Nursing Note Report to Delia Bond RN 04/04/24 0342 [facility] ED Nursing Note Multiple attempts steffen bacon to call report to [facility] with phone number provided by hotbed lever operator, but when phone number dialed RN only gets busy tone. Will try again. Shannon Bond RN 04/04/24 0331 [facility] ED Nursing Note [facility] at bedside to transport pt to [facility]. Paperwork with EMS Shannon Bond RN 04/04/24 1871 [facility] IDNon 04-04-2024 IDN The patient is Moderately Stable - Low risk of patient condition declining or worsening The patient's goals for the shift include safety The clinical goals for the shift include therapeutic aptt Normal [facility] IDN Normal [facility] No Panel Informationon 04-04 Left Pop Rfx 1.1 s [facility] Acute extensive DVT in the right [...] the popliteal vein. 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 During the study 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 and transverse views were obtained. Pulsed wave doppler was performed. The exam was performed with the patient in the supine position. Overall the study quality was adequate. Study was technically difficult due to: bowel gas. CV CPACS Left MICHELLE 0.62 [facility] Left dorsalis pedis BP 78 mmHg [facility] Left posterior tibial [address] [facility] Right MICHELLE 0.55 [facility] Right arm BP 139 mmHg [facility] Right dorsalis pedis BP 65 mmHg [facility] Right posterior tibial 76 mmHg [facility] Right side findings: Resting MICHELLE is 0.55. [...] of RLE discovered just before PVR testing. E M Assembler Details A spectral Doppler analysis ultrasound was [...] On 04-04-2024 03:48:37 EDT by Sourav Swenson [facility] [employer] No Panel InformationOrdered By: Sourav Swenson on 04-04-2024 P Gays 0 degrees [facility] [employer] Work Phone: WY Interval 0 ms [facility] [employer] Work Phone: QRS Gays 40 degrees [facility] [employer] Work Phone: QRSD Interval 86 ms [facility] [employer] Work Phone: QT Interval 352 ms [facility] [employer] Work Phone: QTC Interval 411 ms [facility] [employer] Work Phone: T Wave Gays -3 degrees [facility] [employer] Work Phone: [facility] [employer] Work Phone: Progress Noteon 04-04-2024 Progress Note Normal [facility] Progress Note Normal [facility] Progress Note Normal [facility] Vital signsOrdered By: Cathy Swenson on 04-04-2024 Heart rate 82 /min bpm [facility] [employer] Work Phone: aPTT Coag (Bld) [Time]on aPTT Coag (PPP) [Time] 81.8 s High 20.0 - 30.5 s [facility] Interpretation and review of laboratory results Abnormal [facility] NOTE: The therapeuti c time for Heparin anticoagulation, based on Xa activity inhibition, is an APTT of 46-80 seconds. [facility] aPTT Coag (PPP) [Time] 81.4 s High 20.0 - 30.5 s [facility] Interpretation and review of laboratory results Abnormal [facility] NOTE: The therapeuti c time for Heparin anticoagulation, based on Xa activity inhibition, is an APTT of 46-80 seconds. [facility] aPTT Coag (Bld) [Time]Ordere d By: Devika Eisenberg on 04-04-2024 aPTT Coag (PPP) [Time] 132.2 s Critically high 20 .0 - 30.5 s [facility] Interpretation and review of laboratory results Abnormal [facility] NOTE: The therapeuti c time for Heparin anticoagulation, based on Xa activity inhibition, is an APTT of 46-80 seconds. [facility] APTTon 04-03-2024 aPTT Coag (Bld) [Time] 25.6 s Normal 20.0-30.5 [facility] Comment on above: Result Comment: BUBBA Garcia COMMENTS:NOTE: The therapeutic time for Heparin anticoagulation, based on Xa activity inhibition, is an APTT of 46-80 seconds. Performed By: #### L [id number] ####Cannon Pinion Adjuster: MARYLOU MAY ([id number])INNA SERRATO (SBHLAB)[address] CBC (HEMOGRAM)on 04-03-2024 Erythrocyte distribution width (RBC) [Ratio] 14.4 % Normal 11.5-15.0 [facility] Comment on above: Performed By: #### L AB294 ####Cannon Pinion Adjuster: MARYLOU MAY ([id number])ANGLESimran VELASQUEZKANU (SBHLAB)[address] Hematocrit (Bld) [Volume fraction] 38.6 % Normal 35.0-47.0 [facility] Comment on above: Performed By: #### L [id number] ####Cannon Pinion Adjuster: MARYLOU MAY ([id number])[facility] HEALTHSimran RONKANU (SBAB)[address] [place] [address] Hemoglobin (Bld) [Mass/Vol] 12.7 g/dL Normal 11.7-16.0 [facility] Comment on above: Performed By: #### L [id number] ####Cannon Pinion Adjuster: MARYLOU MAY ([id number])[facility] HEALTHSimran RONKANU ([facility] STREETAB)[address] [place] [address] MCH (RBC) [Entitic mass] 30.4 pg Normal 26.0-34.0 [facility] Comment on above: Performed By: #### L [id number] ####Cannon Pinion Adjuster: MARYLOU MAY ([id number])INNA RONKANU (SBHLAB)[address] [place] [address] MCHC 32.9 % Normal 30.5-36.0 [facility] Comment on above: Performed By: #### L AB294 ####Cannon Pinion Adjuster: MARYLOU MAY ([id number])[facility] HEALTHSimran RONKANU (SBHLAB)[address] [place] [address] MCV (RBC) [Entitic vol] 92.3 fL Normal 77.0-99.0 [facility] Comment on above: Performed By: #### L AB294 ####Cannon Pinion Adjuster: MARYLOU MAY ([id number])INNA SERRATO (SBHLAB)[address] Platelet mean volume (Bld) [Entitic vol] 10.0 fL Normal 9.0-12.7 [facility] Comment on above: Performed By: #### L AB294 ####Cannon Pinion Adjuster: MARYLOU MAY ([id number])[facility] HEALTHSimran CARRILLON (SBHLAB)[address] Platelets (Bld) [#/Vol] 283 10*3/uL Normal 140-440 [facility] Comment on above: Performed By: #### L AB294 ####Cannon Pinion Adjuster: MARYLOU MAY ([id number])[facility] HEALTHSimran VEL[facility]QUEZ[facility]ITY [facility] [place] (SBHLAB)[address] [place] [address] RBC (Bld) [#/Vol] 4.18 10*6/uL Normal 3.80-5.20 [facility] Comment on above: Performed By: #### L AB294 ####Cannon Pinion Adjuster: MARYLOU MAY ([id number])[facility] HEALTHSimran [facility] [place] (SBHLAB)[address] [place] [address] WBC (Bld) [#/Vol] 9.3 10*3/uL Normal 3.6-10.7 [facility] Comment on above: Performed By: #### L AB294 ####Cannon Pinion Adjuster: MARYLOU MAY ([id number])[facility] HEALTHSimran VELASQUEZLOVELACE [facility], ROSWELLN (SBHLAB)[address] [place] [address] CBC panel Auto (Bld)on 04-03 Erythrocyte distribution width (RBC) [Ratio] 14.4 % 11.5 - 15.0 % [facility] Hematocrit (Bld) [Volume fraction] 38.6 % 35.0 - 47.0 % [facility] Hemoglobin (Bld) [Mass/Vol] 12.7 g/dL 11.7 - 16.0 g/dL [facility] Interpretation and review of laboratory results Normal [facility] MCH (RBC) [Entitic mass] 30.4 pg 26.0 - 34.0 pg [facility] MCHC (RBC) [Mass/Vol] 32.9 % 30.5 - 36.0 % [facility] MCV (RBC) [Entitic vol] 92.3 fL 77.0 - 99.0 fL [facility] Platelet mean volume (Bld) [Entitic vol] 10.0 fL 9.0 - 12.7 fL [facility] Platelets (Bld) [#/Vol] 283 10*3/uL 140 - 440 10*3/uL [facility] RBC (Bld) [#/Vol] 4.18 10*6/uL 3.80 - 5.2 0 10*6/uL [facility] WBC (Bld) [#/Vol] 9.3 10*3/uL 3.6 - 10.7 10*3/uL [facility] COMPREHENSIVE METABOLIC PANE Gilberto 04-03-2024 Albumin [Mass/Vol] 4.3 g/dL Normal 3.5-5.0 [facility] Comment on above: Performed By: #### Weston AB103, [id number], LAB17 ####Cannon Pinion Adjuster: MARYLOU MAY ([id number])[facility] (SBHLAB)[address] ALP [Catalytic activity/Vol] 91 U/L Normal 38-126 [facility] Comment on above: Performed By: #### Weston AB103, [id number], LAB17 ####Cannon Pinion Adjuster: MARYLOU MAY ([id number])[facility] (SBHLAB)[address] ALT [Catalytic activity/Vol] 10 U/L Normal 0-34 [facility] Comment on above: Performed By: #### L AB103, [id number], LAB17 ####Cannon Pinion Adjuster: MARYLOU MAY ([id number])[facility] (SBHLAB)[address] [place] [address] [place] Anion gap [Moles/Vol] 9 mmol/L Normal 3-13 [facility] Comment on above: Performed By: #### L AB103, [id number], LAB17 ####Cannon Pinion Adjuster: MARYLOU MAY ([id number])[facility] (SBHLAB)[address] AST [Catalytic activity/Vol] 19 U/L Normal 15-46 [facility] Comment on above: Performed By: #### Weston DAWSON, [id number], LAB17 ####Cannon Pinion Adjuster: MARYLOU MAY ([id number])[facility] HEALTHSimran SERRATO (SBHLAB)[address] Bilirubin [Mass/Vol] 1.1 mg/dL Normal 0.2-1.3 [facility] Comment on above: Performed By: #### Weston DAWSON, [id number], LAB17 ####Cannon Pinion Adjuster: MARYLOU MAY ([id number])[facility] HEALTHSimran [facility] [place] (SBHLAB)[address] Calcium [Mass/Vol] 9.3 mg/dL Normal 8.4-10.4 [facility] Comment on above: Performed By: #### Weston DAWSON, [id number], LAB17 ####Cannon Pinion Adjuster: MARYLOU MAY ([id number])[facility] HEALTHSimran [facility] [place] (SBHLAB)[address] [place] [address] [place] Chloride [Moles/Vol] 107 mmol/L Normal 98-107 [facility] Comment on above: Performed By: #### Weston DAWSON, [id number], LAB17 ####Cannon Pinion Adjuster: MARYLOU MAY ([id number])[facility] HEALTHSimran [facility] [place] (SBHLAB)[address] [place] [address] [place] CO2 [Moles/Vol] 20 mmol/L Low 22-30 [facility] Comment on above: Performed By: #### Weston DAWSON, [id number], LAB17 ####Cannon Pinion Adjuster: MARYLOU MAY ([id number])[facility]ON[facility] [place] (SBHLAB)[address] [place] [address] [place] Creatinine [Mass/Vol] 1.54 mg/dL High 0.52-1.04 [facility] Comment on above: Performed By: #### Weston DAWSON, [id number], LAB17 ####Cannon Pinion Adjuster: MARYLOU MAY ([id number])[facility] (SBHLAB)[address] [place] [address] [place] GLOMERULAR FILTRATION RATE ML/MIN/1.73 SQ M.PREDICTED 33.2 mL/min/1.73m*2 Low >60.0 [facility] Comment on above: Result Comment: Calc ulation based on the Chronic Kidney Disease Epidemiology Collaboration (CKD-EPI) equation refit without adjustment for race Performed By: #### Weston DAWSON, [id number], LAB17 ####Cannon Pinion Adjuster: MARYLOU MAY ([id number])[facility] (SBHLAB)[address] Glucose [Mass/Vol] 115 mg/dL High 70-100 [facility] Comment on above: Performed By: #### Weston DAWSON, [id number], LAB17 ####Cannon Pinion Adjuster: MARYLOU MAY ([id number])[facility] (SBHLAB)[address] [place] [address] [place] Potassium [Moles/Vol] 5.7 mmol/L High 3.5-5.1 [facility] Comment on above: Performed By: #### Weston DAWSON, [id number], LAB17 ####Cannon Pinion Adjuster: MARYLOU MAY ([id number])[facility] (SBHLAB)[address] [place] [address] [place] Protein [Mass/Vol] 7.7 g/dL Normal 6.3-8.2 [facility] Comment on above: Performed By: #### Weston DAWSON, [id number], LAB17 ####Cannon Pinion Adjuster: MARYLOU MAY ([id number])[facility] (SBHLAB)[address] [place] [address] [place] Sodium [Moles/Vol] 135 mmol/L Normal 135-145 [facility] Comment on above: Performed By: #### Weston DAWSON, [id number], LAB17 ####Cannon Pinion Adjuster: MARYLOU MAY ([id number])[facility] (SBHLAB)[address] [place] [address] [place] Urea nitrogen [Mass/Vol] 29 mg/dL High 7-17 [facility] Comment on above: Performed By: #### L AB103, IJF094, LAB17 ####Cannon Pinion Adjuster: MARYLOU MAY ([id number])[facility] (SBHLAB)[address] [place] [address] CT HEAD WO IV CONTRASTon CT HEAD WO IV CONTRAST Normal [facility] CT Head WO contraston 2023 1. No acute finding. Chronic left cerebellar infarct.. Report Dictated on Electronically Signed By: Toño Tang MD Electronically Signed Date/Time: 04/03/2024 9:21 PM EDT [facility] Patient Name: MEL CARVER RD : 1940 [...] midline shift. No hydrocephalus. Left globe prosthesis. [facility] Toño Tang MD - 04/03/2024 Patient Name: [...] Electronically Signed Date/Time: 04/03/2024 9:21 PM EDT [facility] [employer] Radiology Study observation (narrative) Inna lockhart CT Head WO contrastOrdered B y: Toño Tang on 04-03-2024 [employer] Work Phone: CTA AORTA BL ILIOFEMORAL W W Oon 04-03-2024 CTA AORTA BL ILIOFEMORAL W WO Normal [facility] CTA Thoracic and Abdominal A zachary and Bilateral Runoff Vessels WO and W contrast Cheryl 04-03-2024 1. Severe lower extremity atherosclerotic disease. 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 2. 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 3. Severe diverticulosis. Report Dictated on Electronically Signed By: Toño Tang MD Electronically Signed Date/Time: 04/03/2024 9:36 PM EDT [employer] Patient Name: MEL CARVER RD : 1940 [facility]#: [id number] Exam Date/Time: 04/03/2024 21:14 Procedure: CTA AORTA [...] into the mid to distal lower leg. [facility] Toño Tang MD - 04/03/2024 [facility] POP [facility] 1940 [id number] Exam Date/Time: 04/03/2024 21:14 Procedure: CTA AORTA [...] Electronically Signed Date/Time: 04/03/2024 9:36 PM EDT [facility] Radiology Study observation (narrative) [facility] metabolic 1998 panelon 04-03-2024 Albumin [Mass/Vol] 4.3 g/dL 3.5 - 5.0 g/dL [facility] ALP [Catalytic activity/Vol] 91 U/L 38 - 126 U/L [facility] ALT [Catalytic activity/Vol] 10 U/L 0 - 34 U/L [facility] Anion gap [Moles/Vol] 9 mmol/L 3 - 13 mmol/L [facility] AST [Catalytic activity/Vol] 19 U/L 15 - 46 U/L [facility] Bilirubin [Mass/Vol] 1.1 mg/dL 0.2 - 1 .3 mg/dL [facility] Calcium [Mass/Vol] 9.3 mg/dL 8.4 - 10. 4 mg/dL [facility] Chloride [Moles/Vol] 107 mmol/L 98 - 10 7 mmol/L [facility] CO2 [Moles/Vol] 20 mmol/L Low 22 - 30 mmol/L [facility] Creatinine [Mass/Vol] 1.54 mg/dL High 0.52 - 1.04 mg/dL [facility] GFR/1.73 sq M.predicted (S/P/Bld) [Vol rate/Area] 33.2 mL/min Low - PINF [facility] Comment on above: Calculation based on the Chronic Kidney Disease Epidemiology Collaboration (CKD-EPI) equation refit without adjustment for race Glucose [Mass/Vol] 115 mg/dL High 70 - 100 mg/dL [facility] Interpretation and review of laboratory results Abnormal [facility] Potassium [Moles/Vol] 5.7 mmol/L High 3.5 - 5.1 mmol/L [facility] Protein [Mass/Vol] 7.7 g/dL 6.3 - 8.2 g/dL [facility] Sodium [Moles/Vol] 135 mmol/L 135 - 145 mmol/L [facility] Urea nitrogen [Mass/Vol] 29 mg/dL High 7 - 17 mg/dL [facility] ED Nursing Noteon 04-03-2024 ED Nursing Note Normal [facility] ED Provider Noteon 4 ED Provider Note Normal [facility] Laboratory - Chemistry and C hemistry - challengeon 04-03-2024 Troponin I.cardiac [Mass/Vol] 0.014 ng/mL NINF - 0.034 ng/mL [facility] Magnesium [Mass/Vol] 2.3 mg/dL 1.6 - 2 .3 mg/dL [facility] Laboratory - Coagulationon 0 04-03-2024 aPTT Coag (PPP) [Time] 26.7 s 20.0 - 30.5 s [facility] INR Coag (PPP) [Relative time] 1.0 {INR} 0.9 - 1.1 [facility] Comment on above: Recommended Anticoag ulant [...] 11.7 s 9.0 - 1 2.0 s [facility] MAGNESIUMon 04-03-2024 Magnesium [Mass/Vol] 2.3 mg/dL Normal 1.6-2.3 [facility] Comment on above: Performed By: #### L AB103, [id number], LAB17 ####Cannon Pinion Adjuster: MARYLOU MAY ([id number])[facility] ([facility])[address] [place] [address] Magnesium [Mass/Vol]on 04-03 Interpretation and review of laboratory results Normal [facility] No Panel Informationon 04-03 [facility] Interpretation and review of laboratory results Normal [facility] PROTIME AND APTTon aPTT Coag (Bld) [Time] 26.7 s Normal 20.0-30.5 [facility] Comment on above: Performed By: #### L [id number] ####Cannon Pinion Adjuster: MARYLOU MAY ([id number])[facility]ALTH[facility] MARYVALEBossman ([facility])[address] INR Coag (PPP) [Relative time] 1.0 {INR} Normal 0.9-1.1 [facility] Comment on above: Result Comment: Tiomthy mmended Anticoagulant Therapy: SEE BELOW----- INR of [...] prevent Myocardial Infarction Performed By: #### Weston [id number] ####Cannon Pinion Adjuster: MARYLOU MAY ([id number])[facility] ([facility])[address] [place] [address] PT Coag (PPP) [Time] 11.7 s Normal 9.0-12.0 [facility] Comment on above: Performed By: #### L [id number] ####Cannon Pinion Adjuster: MARYLOU MAY ([id number])[facility] ([facility])[address] [place] [address] TROPONIN Ion 04-03-2024 Troponin I.cardiac [Mass/Vol] 0.014 ng/mL Normal <0.034 [facility] Comment on above: Result Comment: BUBBA R COMMENTS:Patients with high levels of Biotin oral intake (ie >5 mg/day) may have falsely decreased Troponin levels. Performed By: #### L AB103, [id number], LAB17 ####Cannon Pinion Adjuster: MARYLOU MAY ([id number])[facility] ([facility])[address] [place] [address] Troponin I.cardiac [Mass/Vol ]on 04-03-2024 Interpretation and review of laboratory results Normal [facility] Patients with high levels of Biotin oral intake (ie >5 mg/day) may have falsely decreased Troponin levels. [facility] aPTT Coag (Bld) [Time]on aPTT Coag (PPP) [Time] 25.6 s 20.0 - 30.5 s [facility] Interpretation and review of laboratory results Normal [facility] NOTE: The therapeuti c time for Heparin anticoagulation, based on Xa activity inhibition, is an APTT of 46-80 seconds. [facility] MR Lower leg - left WO and [...] MD Electronically Signed Date/Time: 06/16/2023 8:10 AM [facility] Patient Name: MEL [...] and lateral ankle resulting from ORIF hardware. [facility] Dimas Woodward MD - 06/16/2023 Patient Name: MEL POP : 1940 [facility]#: [id number] Exam Date/Time: 06/15/2023 16:21 Procedure: MR TIBIA [...] Electronically Signed Date/Time: 06/16/2023 8:10 AM EST [employer] MR Lower leg - left WO and W contrast IVOrdered By: Dimas Woodward on 06-16-2023 [employer] Work Phone: MR Lower leg - left WO and W contrast Cheryl 06-15-2023 Radiology Study observation (narrative) [facility] No Panel Informationon 05-24 No evidence of venous thrombus in the left lower extremity. Report Dictated on Electronically Signed By: Yasmany Whyte MD Electronically Signed Date/Time: 05/24/2023 11:42 AM [facility] [employer] Patient Name: MEL CARVER RD : [...] augmentation and normal response to Valsalva maneuver. [facility] Yasmany Whyte MD - 05/24/2023 Patient Name: [...] Electronically Signed Date/Time: 05/24/2023 11:[address] [employer] CT Neck W contrast Cheryl 02-16 Patient [...] MD Electronically Signed Date/Time: 03/11/2023 10:28 AM [facility] Efrain Yi MD - 03/11/2023 Patient Name: MEL POP : 1940 Exam Date/Time: 03/08/2023 11:33 Procedure: [...] MD Electronically Signed Date/Time: 03/11/2023 10:[address] [employer] [address] Neck W contrast IVOrdered By: Efrain Yi on 03-11-2023 [employer] Work Phone: CT Neck W contrast Cheryl 02-16 Radiology Study observation (narrative) [facility] US Head and neck soft tissue on 02-24-2023 Indeterminate soft tissue nodules in the patients area of palpable concern in the left neck, which may represent enlarged left submandibular gland with obstructing sialolith and adjacent enlarged lymph node. Recommend further evaluation with contrast-enhanced neck CT. Report Dictated on Electronically Signed By: Ryan Mccollum MD Electronically Signed Date/Time: 02/24/2023 8:23 AM EDT [employer] Patient Name: MEL CARVER RD : [...] measuring 1.8 x 1.6 x 1.4 cm. [facility] [employer] Ryan Mccollum MD - 02/24/2023 Patient [...] Electronically Signed Date/Time: 02/24/2023 8:23 AM EDT [facility] US Head and neck soft tissue Ordered By: Ryan Mccollum on 02-24-2023 [facility] Work Phone: US Head and neck soft tissue on 02-22-2023 Radiology Study observation (narrative) [facility] CONSULT PROGon 06-29-2022 CONSULT PROG HNO ID: [id number] Author: Nemo Petty APRN.SKILLED LABORER Service: Wound/Ostomy Author Type: Nurse Practitioner Type: Consult Progress Note Filed: 06/29/2022 12:51 PM Note Text: WOUND CARE SERVICE PROGRESS HUB LEAD NOTE SERVICE DATE: 06/29/2022 SERVICE TIME: 10:20 TIME SPENT (minutes): 30 REASON FOR CONSULT: follow up wound care visit to reassess skin/wounds CHIEF COMPLAINT: right finger wound Subjective HISTORY OF PRESENT ILLNESS: Ms. Jose Alberto Castillo is a 81 year old female who is seen today with Delia Bruno, Wound/take up operator, as a follow up wound care [...] Wound Image Site Assessment Red;Intact Allie-Wound Assessment Ludden Drainage Amount None Treatments Protective Barrier Ointment Dressing Foam- Adhesive Active Orders Date Order Priority Status Authorizing Provider 06/28/22 1423 zinc oxide 20 % ointment Active Iwona Chu DO 06/21/22 1248 DRESSING CARE (SPECIFY) ([place]) Routine Active Fidel Carmen APRN.SKILLED LABORER - Specify:: Apply allevyn foam to coccyx, peel down every shift to assess skin and to apply zinc oxide, change every 3 days or if soiled. 06/21/22 1248 zinc oxide 20 % Active Fidel Carmen APRN.CNP Wound 06/16/22 Incision Knee Left;Posterior (Active) Assessments 06/29/2022 10:27 AM Wound Image Site Assessment Dry;Intact Allie-Wound Assessment Intact Closure Sutures Drainage Amount None Treatments Open to Air No Linked orders to display Wound 06/21/22 0948 Atypical Wound Finger (Comment which one) Right (Active) Assessments 06/29/2022 10:23 AM Wound Image Site Assessment Red;[place]den Allie-Wound Assessment Intact Wound Length (cm) 2 cm Wound Width (cm) 2.5 cm Wound Surface Area (cm2) 5 cm2 Wound Depth (cm) 0.1 cm Wound Volume (cm3) 0.5 (more content not included)... Normal [facility] NUTRITIONon 06-29-2022 NUTRITION HNO ID: [id number] Author: Iwona Pelayo RD Service: Nutrition Therapy Author Type: Registered Dietitian Type: Nutrition Filed: 06/29/2022 1:38 PM Note Text: NUTRITION THERAPY PROGRESS NOTE SERVICE DATE: 06/29/2022 SERVICE TIME: 13:30 Nutrition Assessment: Recommended Malnutrition Diagnosis: No Malnutrition Identified (06/23/22 1109 : Parul Mcallister RD) Estimated kilocalorie needs: [id number] Calorie Calculation Method: 25-30 kcals/kg Estimated protein [...] June 29, 2022 TIME: 10:17 AM Normal [facility] PT EDon 06-29-2022 PT ED HNO ID: [id number] Author: Joana Tolbert RPh Service: Pharmacy Author [...] information Outcomes not met: N/A Joana Tolbert [facility] CNDSon 06-28-2022 [facility] HNO ID: [id number] Author: Iwona Chu DO Service: Hospital Medicine [...] micropuncture needle and serially upsized to a 5-Luxembourger sheath. A venogram was then performed, which [...] time, the sheath was upsized to an 8-Luxembourger sheath. An intravascular ultrasound was performed. This [...] [facility]. Await ambulatory Pulse ox for possible home O2 need. Family to transport. Note chart merge with Discharge Disposition Discharge Disposition: Home With Home Care Activity When You Leave the Hospital Other: As tolerated Diet Instructions Other: I recommend a whole food plant based diet. [email or web address] for educational literat (more content not included)... Normal [facility] NURSING PROGon 06-28-2022 NURSING PROG HNO ID: [id number] Author: John Castro, RADHA Service: Nursing Author Type: Registered Nurse Type: Nursing Progress Note Filed: 06/28/2022 2:28 PM Note Text: Other: Ambulatory pulse ox per Dr. Chu SpO2 on Room air at rest: 91% SpO2 while ambulating on Room air: 83% SpO2 while ambulating on 2 liters of oxygen: 91% Normal [facility] Bacteria Spec Resp Culton Bacteria identified Respiratory culture Nom (Unsp spec) CULTURE, RESPIRATORY: Few Normal respiratory radha present ORGANISM ID: 1 Few Lactose fermenting gram negative rods Insignificant colony count. No further workup. GRAM STAIN: Rare Gram positive cocci Few Polymorphonuclear leukocytes Few Epithelial cells Abnormal [facility] Comment on above: Performed By: #### 3 2355-0 #### [facility] CLIA [id number] [address] [place] CONSULT PROGon 06-25-2022 CONSULT PROG HNO ID: [id number] Author: Cirilo Yip RPh Service: Pharmacy Author Type: Pharmacist Type: Consult Progress Note Filed: 06/25/2022 1:49 PM Note Text: PHARMACY ORAL ANTICOAGULATION PATIENT EDUCATION NOTE Oral anticoagulant: apixaban Indication: DVT/PE Patient New to medication: Yes LEARNERS Persons Present: Patient Primary Learner: Patient Duct Layer Supervisor Present: No Patient educated on the followin. [...] June 25, 2022 TIME: 1:48 PM Normal [facility] Bacteria Spec Resp Culton Bacteria identified Respiratory culture Nom (Unsp spec) CULTURE, RESPIRATORY: Moderate Normal respiratory radha present GRAM STAIN: Moderate Mixed oral radha Few Polymorphonuclear leukocytes Few Epithelial cells Abnormal [facility] Comment on above: Performed By: #### 3 2355-0 ####[facility]ATORYCLIA [id number] [address] STATES OF [facility] Basic metabolic 2000 panelon 06-24-2022 Anion gap [Moles/Vol] 10 mmol/L Normal 9-18 [facility] Comment on above: Order Comment: Speci men Type: BLOOD SPECIMENOrdering Facility: [facility] Address: [address] [place] [address] Performed By: #### 2 4321-2, 06253-6 ####[facility]ORATORYCLIA [id number] [address] STATES OF [facility] Calcium [Mass/Vol] 9.0 mg/dL Normal 8.5-10.2 [facility] Comment on above: Order Comment: Speci men Type: BLOOD SPECIMENOrdering Facility: [facility] Address: [address] [place] [address] Performed By: #### 2 432-2, 48437-4 ####[facility]ATORYCLIA [id number] [address] [place] Chloride [Moles/Vol] 103 mmol/L Normal 97-105 [facility] Comment on above: Order Comment: Speci men Type: BLOOD SPECIMENOrdering Facility: [facility] Address: [address] [place] [address] Performed By: #### 2 4321-2, 27703-8 ####[facility]ORATORYCLIA [id number] [address] [place] CO2 [Moles/Vol] 23 mmol/L Normal 22-30 [facility] Comment on above: Order Comment: Speci men Type: BLOOD SPECIMENOrdering Facility: [facility] Address: [address] [place] [address] Performed By: #### 2 4321-2, 04185-5 ####[facility]ATORYCLIA [id number] [place] [address] [place] Creatinine [Mass/Vol] 0.73 mg/dL Normal 0.58-0.96 [facility] Comment on above: Order Comment: Rhina mason Type: BLOOD SPECIMENOrdering Facility: [facility] Address: [place] [address] Performed By: #### 2 4321-2, 52862-7 ####[facility]ORATORYCLIA [id number] [place] [address] [facility] ESTIMATED GLOMERULAR FILTRATION RATE 82 mL/min/1.73m??? Normal >=60 [facility] Comment on above: Order Comment: Samirrobson mason Type: BLOOD SPECIMENOrdering Facility: [facility] Address: [place] [address] Result Comment: Isa mated Glomerular Filtration Rate [...] actual GFR. Performed By: #### 2 4321-2, 14218-9 ####[facility]ATORYCLIA [id number] [place] [address] [place] Glucose [Mass/Vol] 165 mg/dL High 74-99 [facility] Comment on above: Order Comment: Rhina mason Type: BLOOD SPECIMENOrdering Facility: [facility] Address: [place] [address] Result Comment: The [place] [employer] (ADA) provides guidance for cutoff [...] Standards of Medical Care in Diabetes 2016, [place] [employer]. Diabetes Care. 2016.39(Suppl 1). Performed By: #### 2 4321-2, 10074-5 ####[facility]ATORYCLIA [id number] [address] [place] [facility] Potassium [Moles/Vol] 5.0 mmol/L Normal 3.7-5.1 [facility] Comment on above: Order Comment: Speci men Type: BLOOD SPECIMENOrdering Facility: [facility] Address: [address] [place] [address] Performed By: #### 2 4321-2, 54707-2 ####[facility]ORATORYCLIA [id number] [address] Sodium [Moles/Vol] 136 mmol/L Normal 136-144 [facility] Comment on above: Order Comment: Speci men Type: BLOOD SPECIMENOrdering Facility: [facility] Address: [address] [place] [address] Performed By: #### 2 4321-2, 06222-8 ####[facility]ORATORYCLIA [id number] [address] Urea nitrogen [Mass/Vol] 14 mg/dL Normal 7-21 [facility] Comment on above: Order Comment: Speci men Type: BLOOD SPECIMENOrdering Facility: [facility] Address: [address] [place] [address] Performed By: #### 2 4321-2, 48761-3 ####[facility]ATORYCLIA [id number] [address] CBC panel Auto (Bld)on 06-24 Erythrocyte distribution width (RBC) [Ratio] 17.0 % High 11.5-15.0 [facility] Comment on above: Order Comment: Speci men Type: BLOOD SPECIMENOrdering Facility: [facility] Address: [address] [place] [address] Performed By: #### 5 8410-2 ####[facility]ORATORYCLIA [id number] [address] Hematocrit (Bld) [Volume fraction] 27.2 % Low 36.0-46.0 [facility] Comment on above: Order Comment: Speci men Type: BLOOD SPECIMENOrdering Facility: [facility] Address: [address] [place] [address] Performed By: #### 5 8410-2 ####[facility]ORATORYCLIA [id number] [address] [place] Hemoglobin (Bld) [Mass/Vol] 8.9 g/dL Low 11.5-15.5 [facility] Comment on above: Order Comment: Speci men Type: BLOOD SPECIMENOrdering Facility: [facility] Address: [address] [place] [address] Performed By: #### 5 8410-2 ####[facility]ORATORYCLIA [id number] [address] [place] [facility] MCH (RBC) [Entitic mass] 30.9 pg Normal 26.0-34.0 [facility] Comment on above: Order Comment: Speci men Type: BLOOD SPECIMENOrdering Facility: [facility] Address: [address] [place] [address] Performed By: #### 5 8410-2 ####[facility]ATORYCLIA [id number] [address] [place] MCHC (RBC) [Mass/Vol] 32.7 g/dL Normal 30.5-36.0 [facility] Comment on above: Order Comment: Speci men Type: BLOOD SPECIMENOrdering Facility: [facility] Address: [address] [place] [address] Performed By: #### 5 8410-2 ####[facility]ORATORYCLIA [id number] [address] [place] MCV (RBC) [Entitic vol] 94.4 fL Normal 80.0-100.0 [facility] Comment on above: Order Comment: Speci men Type: BLOOD SPECIMENOrdering Facility: [facility] Address: [address] [place] [address] Performed By: #### 5 8410-2 ####[facility]ORATORYCLIA [id number] [address] [place] Nucleated RBC (Bld) [#/Vol] 0.03 10*3/uL High <0.01 [facility] Comment on above: Order Comment: Speci men Type: BLOOD SPECIMENOrdering Facility: [facility] Address: [address] [place] [address] Performed By: #### 5 8410-2 ####[facility]ORATORYCLIA [id number] [address] [place] Platelet mean volume (Bld) [Entitic vol] 9.8 fL Normal 9.0-12.7 [facility] Comment on above: Order Comment: Speci men Type: BLOOD SPECIMENOrdering Facility: [facility] Address: [address] [place] [address] Performed By: #### 5 8410-2 ####[facility]ORATORYCLIA [id number] [address] [place] Platelets (Bld) [#/Vol] 241 10*3/uL Normal 150-400 [facility] Comment on above: Order Comment: Speci men Type: BLOOD SPECIMENOrdering Facility: [facility] Address: [address] [place] [address] Performed By: #### 5 8410-2 ####[facility]ATORYCLIA [id number] [place] [address] [place] RBC (Bld) [#/Vol] 2.88 10*6/uL Low 3.90-5.20 [facility] Comment on above: Order Comment: Speci men Type: BLOOD SPECIMENOrdering Facility: [facility] Address: [address] [place] [address] Performed By: #### 5 8410-2 ####[facility]ATORYCLIA [id number] [address] [place] WBC (Bld) [#/Vol] 6.37 10*3/uL Normal 3.70-11.00 [facility] Comment on above: Order Comment: Speci men Type: BLOOD SPECIMENOrdering Facility: [facility] Address: [address] [place] [address] Performed By: #### 5 8410-2 ####[facility]ORATORYCLIA [id number] [address] OF [facility] NT-proBNP SerPl-mCncon 06-24 Natriuretic peptide.B prohormone N-Terminal [Mass/Vol] 2971 pg/mL High <450 [facility] Comment on above: Order Comment: Speci men Type: BLOOD SPECIMENOrdering Facility: [facility] Address: [address] [place] [address] Performed By: #### 2 4321-2, 36486-4 ####[facility]ORATORYCLIA [id number] [address] OF [facility] aPTT PPPon 06-24-2022 aPTT Coag (PPP) [Time] 64.2 s High 23.0-32.4 [facility] Comment on above: Order Comment: Speci men Type: BLOOD SPECIMEN [facility] Address: [address] [place] [address] Performed By: #### T SCR #### [facility] CLIA [id number] [address] OF [facility] aPTT Coag (PPP) [Time] 45.8 s High 23.0-32.4 [facility] Comment on above: Order Comment: Speci men Type: BLOOD SPECIMENOrdering Facility: [facility] Address: [address] [place] [address] Performed By: #### 3 2355-0 #### [facility] CLIA [id number] [address] aPTT Coag (PPP) [Time] 116.8 s High 28.5-34.0 [facility] Comment on above: Order Comment: Speci men Type: BLOOD SPECIMENOrdering Facility: [facility] Address: [address] [place] [address] Performed By: #### 1 4979-9 ####[facility]ORATORYCLIA [id number] [place] [id number] [place] ALLIED HEALTHon 06-23-2022 ALLIED HEALTH HNO ID: [id number] Author: Mikel Coronado RT(R) Service: Radiology Author Type: Technologist Type: [...] RT(R) June 23, 2022 9:41 PM Normal [facility] CBC panel Auto (Bld)on 06-23 Erythrocyte distribution width (RBC) [Ratio] 16.6 % High 11.5-15.0 [facility] Comment on above: Order Comment: Speci men Type: BLOOD SPECIMENOrdering Facility: [facility] Address: [address] [place] [address] Performed By: #### 5 8410-2 ####[facility]ORATORYCLIA [id number] [place] [id number] [facility] [place] Hematocrit (Bld) [Volume fraction] 29.6 % Low 36.0-46.0 [facility] Comment on above: Order Comment: Speci men Type: BLOOD SPECIMENOrdering Facility: [facility] Address: [address] [place] [address] Performed By: #### 5 8410-2 ####[facility]ATORYCLIA [id number] [address] Hemoglobin (Bld) [Mass/Vol] 9.5 g/dL Low 11.5-15.5 [facility] Comment on above: Order Comment: Speci men Type: BLOOD SPECIMENOrdering Facility: [facility] Address: [address] [place] [address] Performed By: #### 5 8410-2 ####[facility]ORATORYCLIA [id number] [address] MCH (RBC) [Entitic mass] 30.4 pg Normal 26.0-34.0 [facility] Comment on above: Order Comment: Speci men Type: BLOOD SPECIMENOrdering Facility: [facility] Address: [address] [place] [address] Performed By: #### 5 8410-2 ####[facility]ATORYCLIA [id number] [address] MCHC (RBC) [Mass/Vol] 32.1 g/dL Normal 30.5-36.0 [facility] Comment on above: Order Comment: Speci men Type: BLOOD SPECIMENOrdering Facility: [facility] Address: [address] [place] [address] Performed By: #### 5 8410-2 ####[facility]ATORYCLIA [id number] [address] MCV (RBC) [Entitic vol] 94.6 fL Normal 80.0-100.0 [facility] Comment on above: Order Comment: Speci men Type: BLOOD SPECIMENOrdering Facility: [facility] Address: [address] [place] [address] Performed By: #### 5 8410-2 ####[facility]ATORYCLIA [id number] [address] Nucleated RBC (Bld) [#/Vol] 0.07 10*3/uL High <0.01 [facility] Comment on above: Order Comment: Speci men Type: BLOOD SPECIMENOrdering Facility: [facility] Address: [address] [place] [address] Performed By: #### 5 8410-2 ####[facility]ORATORYCLIA [id number] [place] [address] [place] Platelet mean volume (Bld) [Entitic vol] 9.9 fL Normal 9.0-12.7 [facility] Comment on above: Order Comment: Speci men Type: BLOOD SPECIMENOrdering Facility: [facility] Address: [address] [place] [address] Performed By: #### 5 8410-2 ####[facility]ORATORYCLIA [id number] [address] [place] Platelets (Bld) [#/Vol] 241 10*3/uL Normal 150-400 [facility] Comment on above: Order Comment: Speci men Type: BLOOD SPECIMENOrdering Facility: [facility] Address: [address] [place] [address] Performed By: #### 5 8410-2 ####[facility]ORATORYCLIA [id number] [place] [address] [place] RBC (Bld) [#/Vol] 3.13 10*6/uL Low 3.90-5.20 [facility] Comment on above: Order Comment: Speci men Type: BLOOD SPECIMENOrdering Facility: [facility] Address: [address] [place] [address] Performed By: #### 5 8410-2 ####[facility]ATORYCLIA [id number] [place] [address] [place] WBC (Bld) [#/Vol] 6.86 10*3/uL Normal 3.70-11.00 [facility] Comment on above: Order Comment: Speci men Type: BLOOD SPECIMENOrdering Facility: [facility] Address: [address] [place] [address] Performed By: #### 5 8410-2 ####[facility]ORATORYCLIA [id number] [address] OF [facility] NUTRITIONon 06-23-2022 NUTRITION HNO ID: [id number] Author: Parul Mcallister RD Service: Nutrition Therapy Author Type: Registered Dietitian Type: Nutrition Filed: 06/23/2022 2:28 PM Note Text: NUTRITION THERAPY INITIAL ASSESSMENT SERVICE DATE: 06/23/2022 SERVICE TIME: 11:09 AM Nutrition Assessment: Recommended Malnutrition Diagnosis: No Malnutrition Identified Nutrition Diagnosis: Problem: Suboptimal protein/energy intake Related to: Inability to consume sufficient nutrients As evidenced by: Patient/family self-report;Intake records Estimated kilocalorie needs: 7101-5887 Calorie Calculation Method: 25-30 kcals/kg Estimated protein [...] June 23, 2022 TIME: 11:09 AM Normal [facility] XR CHEST 2V FRONTAL/LATon [...] sites of pneumonia. Small bilateral pleural effusions. Physician President: PSCB Transcribe Date/Time: Jun 24 2022 6:34A Dictated by : DI MINER MD This examination was interpreted and the report reviewed and electronically signed by: DI MINER MD on Jun 24 2022 6:36AM EST [id number] Normal [facility] aPTT PPPon 06-23-2022 aPTT Coag (PPP) [Time] 46.7 s High 23.0-32.4 [facility] Comment on above: Order Comment: Speci men Type: BLOOD SPECIMENOrdering Facility: [facility] Address: [address] [place] [address] Performed By: #### 1 4979-9 ####[facility] LABORATORYCLIA [id number] [address] aPTT Coag (PPP) [Time] 53.8 s High 23.0-32.4 [facility] Comment on above: Order Comment: Speci men Type: BLOOD SPECIMENOrdering Facility: [facility] Address: [address] [place] [address] Performed By: #### 1 4979-9 ####[facility]ORATORYCLIA [id number] [address] aPTT Coag (PPP) [Time] 114.5 s High 23.0-32.4 [facility] Comment on above: Order Comment: Speci men Type: BLOOD SPECIMEN [facility] Address: [address] [place] [address] Performed By: #### T SCR #### [facility] CLIA [id number] [address] CBC W Auto Differential pane l (Bld)on 06-22-2022 Basophils (Bld) [#/Vol] 0.03 10*3/uL Normal <0.11 [facility] Comment on above: Order Comment: Speci men Type: BLOOD SPECIMENOrdering Facility: [facility] Address: [address] [place] [address] Result Comment: Diff erential confirmed by visual scan of peripheral blood smear slide Performed By: #### 5 7021-8 ####[facility] LABORATORYCLIA [id number] [address] Basophils/100 WBC (Bld) 0.5 % Normal A [facility] Comment on above: Order Comment: Speci men Type: BLOOD SPECIMENOrdering Facility: [facility] Address: [address] [place] [address] Performed By: #### 5 7021-8 ####[facility] LABORATORYCLIA [id number] [address] Differential cell count method Nom (Bld) Auto Normal [facility] Comment on above: Order Comment: Speci men Type: BLOOD SPECIMENOrdering Facility: [facility] Address: [address] [place] [address] Performed By: #### 5 7021-8 ####[facility] LABORATORYCLIA [id number] [address] [place] Eosinophils (Bld) [#/Vol] 10*3/uL Normal <0.46 [facility] Comment on above: Order Comment: Speci men Type: BLOOD SPECIMENOrdering Facility: [facility] Address: [address] [place] [address] Performed By: #### 5 7021-8 ####[facility] LABORATORYCLIA [id number] [address] Eosinophils/100 WBC (Bld) 0.0 % Normal [facility] Comment on above: Order Comment: Speci men Type: BLOOD SPECIMENOrdering Facility: [facility] Address: [address] [place] [address] Performed By: #### 5 7021-8 ####[facility] LABORATORYCLIA [id number] [address] [place] Erythrocyte distribution width (RBC) [Ratio] 16.2 % High 11.5-15.0 [facility] Comment on above: Order Comment: Speci men Type: BLOOD SPECIMENOrdering Facility: [facility] Address: [address] [place] [address] Performed By: #### 5 7021-8 ####[facility] LABORATORYCLIA [id number] [address] Hematocrit (Bld) [Volume fraction] 25.1 % Low 36.0-46.0 [facility] Comment on above: Order Comment: Speci men Type: BLOOD SPECIMENOrdering Facility: [facility] Address: [address] [place] [address] Performed By: #### 5 7021-8 ####[facility]ATORYCLIA [id number] [place] [address] [place] Hemoglobin (Bld) [Mass/Vol] 8.4 g/dL Low 11.5-15.5 [facility] Comment on above: Order Comment: Speci men Type: BLOOD SPECIMENOrdering Facility: [facility] Address: [address] [place] [address] Performed By: #### 5 7021-8 ####[facility] LABORATORYCLIA [id number] [place] [address] [place] Immature granulocytes (Bld) [#/Vol] 0.60 10*3/uL High <0.10 [facility] Comment on above: Order Comment: Speci men Type: BLOOD SPECIMENOrdering Facility: [facility] Address: [address] [place] [address] Performed By: #### 5 7021-8 ####[facility] LABORATORYCLIA [id number] [address] [place] Immature granulocytes/100 WBC (Bld) 10.3 % Normal [facility] Comment on above: Order Comment: Speci men Type: BLOOD SPECIMENOrdering Facility: [facility] Address: [address] [place] [address] Performed By: #### 5 7021-8 ####[facility] LABORATORYCLIA [id number] [place] [address] [place] Lymphocytes (Bld) [#/Vol] 1.38 10*3/uL Normal 1.00-4.00 [facility] Comment on above: Order Comment: Speci men Type: BLOOD SPECIMENOrdering Facility: [facility] Address: [address] [place] [address] Performed By: #### 5 7021-8 ####[facility]ATORYCLIA [id number] [address] [place] Lymphocytes/100 WBC (Bld) 23.7 % Normal [facility] Comment on above: Order Comment: Speci men Type: BLOOD SPECIMENOrdering Facility: [facility] Address: [address] [address] Performed By: #### 5 7021-8 ####[facility] LABORATORYCLIA [id number] [address] MCH (RBC) [Entitic mass] 31.2 pg Normal 26.0-34.0 [facility] Comment on above: Order Comment: Speci men Type: BLOOD SPECIMENOrdering Facility: [facility] Address: [address] [address] Performed By: #### 5 7021-8 ####[facility] LABORATORYCLIA [id number] [address] MCHC (RBC) [Mass/Vol] 33.5 g/dL Normal 30.5-36.0 [facility] Comment on above: Order Comment: Speci men Type: BLOOD SPECIMENOrdering Facility: [facility] Address: [address] [place] [address] Performed By: #### 5 7021-8 ####[facility] LABORATORYCLIA [id number] [address] MCV (RBC) [Entitic vol] 93.3 fL Normal 80.0-100.0 [facility] Comment on above: Order Comment: Speci men Type: BLOOD SPECIMENOrdering Facility: [facility] Address: [address] [place] [address] Performed By: #### 5 7021-8 ####[facility] LABORATORYCLIA [id number] [address] Monocytes (Bld) [#/Vol] 0.50 10*3/uL Normal <0.87 [facility] Comment on above: Order Comment: Speci men Type: BLOOD SPECIMENOrdering Facility: [facility] Address: [address] [place] [address] Performed By: #### 5 7021-8 ####[facility] LABORATORYCLIA [id number] [address] [place] Monocytes/100 WBC (Bld) 8.6 % Normal A [facility] Comment on above: Order Comment: Speci men Type: BLOOD SPECIMENOrdering Facility: [facility] Address: [address] [place] [address] Performed By: #### 5 7021-8 ####[facility]ORATORYCLIA [id number] [place] [address] [place] Neutrophils (Bld) [#/Vol] 3.31 10*3/uL Normal 1.45-7.50 [facility] Comment on above: Order Comment: Speci men Type: BLOOD SPECIMENOrdering Facility: [facility] Address: [address] [place] [address] Performed By: #### 5 7021-8 ####[facility] LABORATORYCLIA [id number] [address] [place] Neutrophils/100 WBC (Bld) 56.9 % Normal [facility] Comment on above: Order Comment: Speci men Type: BLOOD SPECIMENOrdering Facility: [facility] Address: [address] [place] [address] Performed By: #### 5 7021-8 ####[facility] LABORATORYCLIA [id number] [place] [address] [place] Nucleated RBC (Bld) [#/Vol] 0.10 10*3/uL High <0.01 [facility] Comment on above: Order Comment: Speci men Type: BLOOD SPECIMENOrdering Facility: [facility] Address: [address] [place] [address] Performed By: #### 5 7021-8 ####[facility] LABORATORYCLIA [id number] [address] [place] Nucleated RBC/100 WBC (Bld) [Ratio] 1.7 /100 WBC Normal [facility] Comment on above: Order Comment: Speci men Type: BLOOD SPECIMENOrdering Facility: [facility] Address: [address] [place] [address] Performed By: #### 5 7021-8 ####[facility] LABORATORYCLIA [id number] [address] [place] Platelet mean volume (Bld) [Entitic vol] 9.7 fL Normal 9.0-12.7 [facility] Comment on above: Order Comment: Speci men Type: BLOOD SPECIMENOrdering Facility: [facility] Address: [address] [place] [address] Performed By: #### 5 7021-8 ####[facility] LABORATORYCLIA [id number] [address] [place] Platelets (Bld) [#/Vol] 209 10*3/uL Normal 150-400 [facility] Comment on above: Order Comment: Speci men Type: BLOOD SPECIMENOrdering Facility: [facility] Address: [address] [place] [address] Performed By: #### 5 7021-8 ####[facility] LABORATORYCLIA [id number] [address] [place] RBC (Bld) [#/Vol] 2.69 10*6/uL Low 3.90-5.20 [facility] Comment on above: Order Comment: Speci men Type: BLOOD SPECIMENOrdering Facility: [facility] Address: [address] [place] [address] Performed By: #### 5 7021-8 ####[facility] LABORATORYCLIA [id number] [address] [place] WBC (Bld) [#/Vol] 5.82 10*3/uL Normal 3.70-11.00 [facility] Comment on above: Order Comment: Speci men Type: BLOOD SPECIMENOrdering Facility: [facility] Address: [address] [place] [address] Performed By: #### 5 7021-8 ####[facility] LABORATORYCLIA [id number] [address] CONSULT PROGon 06-22-2022 CONSULT PROG HNO ID: [id number] Author: Eliza Martin APRN.TONGUE LINING STITCHER Service: Gastroenterology Author Type: Nurse Specialist [...] stool softene (more content not included)... Normal [facility] Comprehensive metabolic 2000 panelon 06-22-2022 Albumin [Mass/Vol] 2.4 g/dL Low 3.9-4.9 [facility] Comment on above: Order Comment: Speci men Type: BLOOD SPECIMENOrdering Facility: [facility] Address: [address] [address] Performed By: #### 2 4323-8 ####[facility] LABORATORYCLIA [id number] [address] STATES [facility] ALP [Catalytic activity/Vol] 129 U/L High 34-123 [facility] Comment on above: Order Comment: Speci men Type: BLOOD SPECIMENOrdering Facility: [facility] Address: [address] [place] [address] Performed By: #### 2 4323-8 ####[facility] LABORATORYCLIA [id number] [place] [address] [place] ALT With P-5'-P [Catalytic activity/Vol] 21 U/L Normal 7-38 [facility] Comment on above: Order Comment: Speci men Type: BLOOD SPECIMENOrdering Facility: [facility] Address: [address] [place] [address] Performed By: #### 2 4323-8 ####[facility] LABORATORYCLIA [id number] [address] [place] Anion gap [Moles/Vol] 10 mmol/L Normal 9-18 [facility] Comment on above: Order Comment: Speci men Type: BLOOD SPECIMENOrdering Facility: [facility] Address: [address] [place] [address] Performed By: #### 2 4323-8 ####[facility] LABORATORYCLIA [id number] [address] [place] AST With P-5'-P [Catalytic activity/Vol] 19 U/L Normal 13-35 [facility] Comment on above: Order Comment: Speci men Type: BLOOD SPECIMENOrdering Facility: [facility] Address: [address] [place] [address] Performed By: #### 2 4323-8 ####[facility] LABORATORYCLIA [id number] [address] [place] Bilirubin [Mass/Vol] 0.6 mg/dL Normal 0.2-1.3 [facility] Comment on above: Order Comment: Speci men Type: BLOOD SPECIMENOrdering Facility: [facility] Address: [address] [place] [address] Performed By: #### 2 4323-8 ####[facility] LABORATORYCLIA [id number] [address] [place] Calcium [Mass/Vol] 8.6 mg/dL Normal 8.5-10.2 [facility] Comment on above: Order Comment: Speci men Type: BLOOD SPECIMENOrdering Facility: [facility] Address: [address] [place] [address] Performed By: #### 2 4323-8 ####[facility] LABORATORYCLIA [id number] [address] STATES OF [facility] Chloride [Moles/Vol] 105 mmol/L Normal 97-105 [facility] Comment on above: Order Comment: Speci men Type: BLOOD SPECIMENOrdering Facility: [facility] Address: [address] [place] [address] Performed By: #### 2 4323-8 ####[facility] LABORATORYCLIA [id number] [address] OF [facility] CO2 [Moles/Vol] 21 mmol/L Low 22-30 [facility] Comment on above: Order Comment: Speci men Type: BLOOD SPECIMENOrdering Facility: [facility] Address: [address] [place] [address] Performed By: #### 2 4323-8 ####[facility] LABORATORYCLIA [id number] [address] Creatinine [Mass/Vol] 0.88 mg/dL Normal 0.58-0.96 [facility] Comment on above: Order Comment: Speci men Type: BLOOD SPECIMENOrdering Facility: [facility] Address: [address] [place] [address] Performed By: #### 2 4323-8 ####[facility] LABORATORYCLIA [id number] [address] ESTIMATED GLOMERULAR FILTRATION RATE 66 mL/min/1.73m??? Normal >=60 [facility] Comment on above: Order Comment: Speci men Type: BLOOD SPECIMENOrdering Facility: [facility] Address: [address] [place] [address] Result Comment: Isa mated Glomerular Filtration Rate [...] actual GFR. Performed By: #### 2 4323-8 ####[facility] LABORATORYCLIA [id number] [place] [address] [place] Glucose [Mass/Vol] 95 mg/dL Normal 74-99 [facility] Comment on above: Order Comment: Speci men Type: BLOOD SPECIMENOrdering Facility: [facility] Address: [address] [place] [address] Result Comment: The [place] [employer] (ADA) provides guidance for cutoff [...] Standards of Medical Care in Diabetes 2016, [place] [employer]. Diabetes Care. 2016.39(Suppl 1). Performed By: #### 2 4323-8 ####[facility] LABORATORYCLIA [id number] [place] [address] [place] Potassium [Moles/Vol] 4.7 mmol/L Normal 3.7-5.1 [facility] Comment on above: Order Comment: Speci men Type: BLOOD SPECIMENOrdering Facility: [facility] Address: [address] [place] [address] Performed By: #### 2 4323-8 ####[facility] LABORATORYCLIA [id number] [place] [id number] [place] Protein [Mass/Vol] 5.3 g/dL Low 6.3-8.0 [facility] Comment on above: Order Comment: Speci men Type: BLOOD SPECIMENOrdering Facility: [facility] Address: [address] [place] [address] Performed By: #### 2 4323-8 ####[facility] LABORATORYCLIA [id number] [place] [address] [place] Sodium [Moles/Vol] 136 mmol/L Normal 136-144 [facility] Comment on above: Order Comment: Rhina mason Type: BLOOD SPECIMENOrdering Facility: [facility] Address: [place] [address] Performed By: #### 2 4323-8 ####[facility] LABORATORYCLIA [id number] [address] STATES OF [facility] Urea nitrogen [Mass/Vol] 7 mg/dL Normal 7-21 [facility] Comment on above: Order Comment: Rhina mason Type: BLOOD SPECIMENOrdering Facility: [facility] Address: [address] [place] [address] Performed By: #### 2 4323-8 ####[facility] LABORATORYCLIA [id number] [address] [place] H. pylori IgG IA Qlon 2021 H. PYLORI IGG, QUAL Negative Normal Negative [facility] Comment on above: Order Comment: Rhina mason Type: BLOOD SPECIMENOrdering Facility: [facility] Address: [address] [place] [address] Result Comment: Shakeel ot exclude H. pylori infection if the specimen collected 3-4 weeks after onset of symptoms. Performed By: #### 1 7859-0 ####[facility] LABCLIA [id number] [facility] [id number] [place] PT panel Coag (PPP)on 2021 INR Coag (PPP) [Relative time] {INR} Low 0.9-1.3 [facility] Comment on above: Order Comment: Rhina mason Type: BLOOD SPECIMEN [facility] Address: [address] [place] [address] Result Comment: Mayra min K Antagonist (VKA) Therapeutic Range: INR 2 to 3 (Target INR of 2.5) Note: For patients treated with VKA drugs, such as warfarin, the [place] [employer] 2012 Guideline recommends [...] [phone] Performed By: #### T SCR #### [facility] CLIA [id number] [address] PT Coag (PPP) [Time] 9.9 s Normal 9.7-13.0 [facility] Comment on above: Order Comment: Speci men Type: BLOOD SPECIMEN [facility] Address: [address] [place], [place] [address] Performed By: #### T SCR #### [facility] CLIA [id number] [address] THERAPY NTon 06-22-2022 THERAPY NT HNO ID: [id number] Author: MAMIE Mortensen/Weston Service: Occupational Therapy Author Type: Occupational Therapist Type: Therapy (PT/OT/Speech/Resp) Filed: 06/22/2022 11:27 AM Note Text: Occupational Therapy Evaluation SERVICE DATE: 06/22/2022 SERVICE TIME: 1037 to 1105 ROOM: [id number] Recommended Discharge Disposition: Subacute/SNF Recommended Discharge Disposition [...] time Occupational Factors 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 Normal [facility] US ARTERIAL PVR LOWERon - US ARTERIAL PVR LOWER * * *Final Report* * * DATE OF EXAM: Jun 22 2022 7:43AM A2U 1107 - US ARTERIAL PVR LOWER / PROCEDURE REASON: Arterial embolism * * * * Physician Interpretation * * * * Non-Invasive Vascular Laboratory [facility] Lower Extremity Arterial Physiology Study Bilateral/Complete Date of service/time: 06/22/2022 7:12:00 AM - [place] Name: MEL CASTILLO Date of : 1940 [...] all veins 06/16/22. Dopplers study was done. MRI TECHNICIAN - Biphasic MATERIAL HANDLER 2ND SHIFT - Multiphasic - possible stenosis DP - Monophasic Sharon - Biphasic. Technologist: Azar Holcomb [facility] Ordering physician: DWAYNE ZAIDI Interpreting physician: Supriya Ponce MD Final (Updated) RP Physician President: ArtCorgi Transcribe Date/Time: Jun 22 2022 7:12A Dictated by : SUPRIYA PONCE MD This examination was interpreted and the report reviewed and electronically signed by: SUPRIYA PONCE MD on Jun 24 2022 1:27PM EST [id number] Normal [facility] aPTT PPPon 06-22-2022 aPTT Coag (PPP) [Time] 43.0 s High 23.0-32.4 [facility] Comment on above: Order Comment: Speci men Type: BLOOD SPECIMENOrdering Facility: [facility] Address: [address] [place] [address] Performed By: #### 1 4979-9 ####[facility] LABORATORYCLIA [id number] [place] [address] [place] aPTT Coag (PPP) [Time] 25.6 s Normal 23.0-32.4 [facility] Comment on above: Order Comment: Speci men Type: BLOOD SPECIMEN [facility] Address: [place] [address] Performed By: #### T SCR #### [facility] CLIA [id number] 1 [place] [address] [place] ANES POSTPROC EVALon 022 ANES POSTPROC EVAL HNO ID: [id number] Author: Olu Vasquez MD Service: Anesthesiology Author Type: Physician Type: Anesthesia Postprocedure Evaluation Filed: 06/21/2022 3:20 PM Note Text: POST ANESTHESIA EVALUATION NOTE : 1940 Procedure Summary Date: 06/21/22 Room / Location: [facility] Anesthesia Start: 1134 Anesthesia Stop: 1158 Procedure: [...] June 21, 2022 TIME: 3:19 PM CSN: [id number] Normal [facility] ANES PRE-OPon 06-21-2022 ANES PRE-OP HNO ID: [id number] Author: Olu Vasquez MD Service: Anesthesiology Author Type: Physician Type: Anesthesia Preprocedure Evaluation Filed: 06/21/2022 11:32 AM Note Text: ANESTHESIOLOGY DAY OF SURGERY NOTE : 1940 Procedure Information Date/Time: 06/21/22 1130 Scheduled providers: Sim Elizabeth MD Procedure: EGD DIAGNOSTIC Location: [facility] Estimated body mass index is 26.94 kg/m? [...] 1122 Temp 36.3 ?C (97.3 ?F) 06/21/22 112 SpO2 99 % 06/21/22 112 Facility-Administered Medications as of 06/21/2022 Medication Dose [...] Olu Dietrich (more content not included)... Normal [facility] CONSULT PROGon 06-21-2022 CONSULT PROG HNO ID: [id number] Author: Fidel Carmen APRN.SKILLED LABORER Service: Wound/Ostomy Author Type: Nurse Practitioner Type: Consult Progress Note Filed: 06/21/2022 1:41 PM Note Text: WOUND CARE SERVICE CONSULT HUB LEAD NOTE SERVICE DATE: 06/21/2022 SERVICE TIME: 941 TIME SPENT (minutes): 30 REASON FOR CONSULT: MAD buttocks, atypical wound Right middle finger. CHIEF COMPLAINT: Right middle finger Subjective HISTORY OF PRESENT ILLNESS: Ms. Jose Alberto Castillo is a 81 year old female who is seen today with Delia Bruno, Wound/take up operator, and presented to hospital with complaints [...] 06/21/2022 9:57 AM Wound Image Site Assessment [place];Red (small open area noted) Allie-Wound Assessment [place];Intact Drainage Amount None Odor None Treatments Cleansed;Protective Barrier Ointment Dressing Foam- Adhesive Dressing Changed Changed Dressing Status Clean;Dry;Intact Active Orders Date Order Priority Status Authorizing Provider 06/21/22 1248 DRESSING CARE (SPECIFY) ([place]) Routine Active Fidel Carmen APRN.SKILLED LABORER - Specify:: Apply allevyn foam to coccyx, peel down every shift to assess skin and to apply zinc oxide, change every 3 days or if soiled. 06/21/22 1248 zinc oxide 20 % Active Fidel Carmen APRN.SKILLED LABORER Wound 06/21/22 0948 Atypical Wound Finger (Comment which one) Right (Active) Assessments 06/21/2022 9:48 AM Wound Image Site Assessment [place];White (shiney) Allie-Wound Assessment Intact Shape irregular Drainage Description Sanguineous (intermittent, per pt.) Drainage Amount None Odor None Treatments Cleansed Dressing Xeroform;Gauze (more content not included)... Normal [facility] Hgb Bld-mCncon 06-21-2022 Hemoglobin (Bld) [Mass/Vol] 6.9 g/dL Low 11.5-15.5 [facility] Comment on above: Order Comment: Speci men Type: BLOOD SPECIMENOrdering Facility: [facility] Address: [place] [address] Performed By: #### 3 2355-0 #### [facility] CLIA [id number] [address] [id number] [place] OPERATIVE NOon 06-21-2022 OPERATIVE NO HNO ID: [id number] Author: Sim Elizabeth MD Service: Gastroenterology Author Type: Physician Type: Operative Report Filed: 06/21/2022 12:01 PM Note Text: OPERATIVE/PROCEDURE REPORT LOG ID: [id number] Surgery/Procedure Date: 06/21/2022 Incision/Procedure Start Time: 11:44 AM Incision Close/Procedure End Time: 11:49 AM Surgeon(s)/Proceduralis t(s) and Credit Products Officer(s): Surgeon(s) and Role: * Sim Elizabeth MD [...] 21, 2022 TIME: 11:53 AM PAGER/CONTACT #: [phone] Normal [facility] THERAPY NTon 06-21-2022 THERAPY NT HNO ID: [id number] Author: Miranda Burroughs PT Service: Physical Therapy Author Type: Physical Therapist Type: Therapy (PT/OT/Speech/Resp) Filed: 06/21/2022 10:12 AM Note Text: Physical Therapy Evaluation SERVICE DATE: 06/21/2022 SERVICE TIME: 831 to 854 ROOM: [place] [address] Recommended Discharge Disposition: Subacute/SNF Recommended Discharge Disposition [...] pt was able to complete Equipment Owned: [employer]ower Prior Functional Level: Required Assistance Assistance Required [...] Jenni decreased;Flexed trunk posture;Antalgic gait;Step length decreased JH-HLM: 5: Standing (1 or more minutes) Learning/Educational [...] gait and mobility-other Interventions Provided: Evaluation;Therapeutic Activity (04631) $ Evaluation-Moderate (20185) Billed Units: 1 unit Therapeutic Activity (58441) Treatment Minutes: 8 $ Therapeutic Activity (13606) Billed Units: 1 unit Educated pt on [...] therapeutic skills (more content not included)... Normal [facility] TYPE + SCREENon 06-21-2022 ABO AB Normal [facility] Comment on above: Order Comment: Speci men Type: BLOOD SPECIMEN [facility] Address: [address] [place] [address] Performed By: #### T SCR #### [facility] CLIA [id number] [address] HISTORICAL AB SCR STATUS Negative [facility] Comment on above: Order Comment: Speci men Type: BLOOD SPECIMEN [facility] Address: [address] [place] [address] Performed By: #### T SCR #### [facility] CLIA [id number] [address] Rh Nom (Bld) Positive [facility] Comment on above: Order Comment: Speci men Type: BLOOD SPECIMEN [facility] Address: [address] [place] [address] Performed By: #### T SCR #### [facility] CLIA [id number] [address] TYPE AND SCREEN EXPIRATION 06/24/2022 23:59 [facility] Comment on above: Order Comment: Speci men Type: BLOOD SPECIMEN [facility] Address: [address] [place] [address] Performed By: #### T SCR #### [facility] CLIA [id number] [address] [place] ALLIED HEALTH 06-20-2022 ALLIED HEALTH HNO ID: [id number] Author: RT Tamica(Tiffanie) Service: Radiology Author Type: [...] June 20, 2022 TIME: 3:15 PM Normal [facility] Basic metabolic 2000 panelon 06-20-2022 Anion gap [Moles/Vol] 8 mmol/L Low 9-18 [facility] Comment on above: Order Comment: Speci men Type: BLOOD SPECIMENOrdering Facility: [facility] Address: [address] [place] [address] Performed By: #### 2 4321-2 ####[facility] LABORATORYCLIA [id number] [place] [address] [place] Calcium [Mass/Vol] 8.5 mg/dL Normal 8.5-10.2 [facility] Comment on above: Order Comment: Speci men Type: BLOOD SPECIMENOrdering Facility: [facility] Address: [address] [place] [address] Performed By: #### 2 4321-2 ####[facility]ORATORYCLIA [id number] [place] [address] [place] Chloride [Moles/Vol] 106 mmol/L High 97-105 [facility] Comment on above: Order Comment: Speci men Type: BLOOD SPECIMENOrdering Facility: [facility] Address: [address] [place] [address] Performed By: #### 2 4321-2 ####[facility]ORATORYCLIA [id number] [place] [address] [place] CO2 [Moles/Vol] 22 mmol/L Normal 22-30 [facility] Comment on above: Order Comment: Speci men Type: BLOOD SPECIMENOrdering Facility: [facility] Address: [address] [place] [address] Performed By: #### 2 4321-2 ####[facility] LABORATORYCLIA [id number] [place] [address] [place] Creatinine [Mass/Vol] 0.84 mg/dL Normal 0.58-0.96 [facility] Comment on above: Order Comment: Speci men Type: BLOOD SPECIMENOrdering Facility: [facility] Address: [address] [place] [address] Performed By: #### 2 4321-2 ####[facility] LABORATORYCLIA [id number] [place] [address] [place] ESTIMATED GLOMERULAR FILTRATION RATE 69 mL/min/1.73m??? Normal >=60 [facility] Comment on above: Order Comment: Rhina mason Type: BLOOD SPECIMENOrdering Facility: [facility] Address: [address] [place] [address] Result Comment: Isa mated Glomerular Filtration Rate [...] actual GFR. Performed By: #### 2 4321-2 ####[facility]ITALCLIA [id number] [place] [address] [place] Glucose [Mass/Vol] 92 mg/dL Normal 74-99 [facility] Comment on above: Order Comment: Speci isabella Type: BLOOD SPECIMENOrdering Facility: [facility] Address: [address] [place] [address] Result Comment: The [place] [employer] (ADA) provides guidance for cutoff [...] Standards of Medical Care in Diabetes 2016, [place] Diabetes Association. Diabetes Care. 2016.39(Suppl 1). Performed By: #### 2 4321-2 ####[facility] LABORATORYCLIA [id number] [place] [id number] [place] Potassium [Moles/Vol] 4.7 mmol/L Normal 3.7-5.1 [facility] Comment on above: Order Comment: Speci men Type: BLOOD SPECIMENOrdering Facility: [facility] Address: [address] [place] [address] Performed By: #### 2 4321-2 ####[facility] LABORATORYCLIA [id number] [address] STATES OF [facility] Sodium [Moles/Vol] 136 mmol/L Normal 136-144 [facility] Comment on above: Order Comment: Speci men Type: BLOOD SPECIMENOrdering Facility: [facility] Address: [address] [place] [address] Performed By: #### 2 4321-2 ####[facility] LABORATORYCLIA [id number] [address] [place] Urea nitrogen [Mass/Vol] 16 mg/dL Normal 7-21 [facility] Comment on above: Order Comment: Speci men Type: BLOOD SPECIMENOrdering Facility: [facility] Address: [address] [place] [address] Performed By: #### 2 4321-2 ####[facility] LABORATORYCLIA [id number] [address] [place] CBC panel Auto (Bld)on 06-20 Erythrocyte distribution width (RBC) [Ratio] 15.9 % High 11.5-15.0 [facility] Comment on above: Order Comment: Speci men Type: BLOOD SPECIMENOrdering Facility: [facility] Address: [address] [place] [address] Performed By: #### 3 2355-0 #### [facility] CLIA [id number] [address] [place] Hematocrit (Bld) [Volume fraction] 23.9 % Low 36.0-46.0 [facility] Comment on above: Order Comment: Speci men Type: BLOOD SPECIMENOrdering Facility: [facility] Address: [address] [place] [address] Performed By: #### 3 2355-0 #### [facility] CLIA [id number] [address] Hemoglobin (Bld) [Mass/Vol] 7.8 g/dL Low 11.5-15.5 [facility] Comment on above: Order Comment: Speci men Type: BLOOD SPECIMENOrdering Facility: [facility] Address: [address] [place] [address] Performed By: #### 3 2355-0 #### [facility] CLIA [id number] [address] MCH (RBC) [Entitic mass] 30.7 pg Normal 26.0-34.0 [facility] Comment on above: Order Comment: Speci men Type: BLOOD SPECIMENOrdering Facility: [facility] Address: [address] [place] [address] Performed By: #### 3 2355-0 #### [facility] CLIA [id number] [address] MCHC (RBC) [Mass/Vol] 32.6 g/dL Normal 30.5-36.0 [facility] Comment on above: Order Comment: Speci men Type: BLOOD SPECIMENOrdering Facility: [facility] Address: [address] [place] [address] Performed By: #### 3 2355-0 #### [facility] CLIA [id number] [address] MCV (RBC) [Entitic vol] 94.1 fL Normal 80.0-100.0 [facility] Comment on above: Order Comment: Speci men Type: BLOOD SPECIMENOrdering Facility: [facility] Address: [address] [place] [address] Performed By: #### 3 2355-0 #### [facility] CLIA [id number] [address] Nucleated RBC (Bld) [#/Vol] 0.09 10*3/uL High <0.01 [facility] Comment on above: Order Comment: Speci men Type: BLOOD SPECIMENOrdering Facility: [facility] Address: [address] [place] [address] Performed By: #### 3 2355-0 #### [facility] CLIA [id number] [address] [place] Platelet mean volume (Bld) [Entitic vol] 9.8 fL Normal 9.0-12.7 [facility] Comment on above: Order Comment: Speci men Type: BLOOD SPECIMENOrdering Facility: [facility] Address: [address] [place] [place] [address] Performed By: #### 3 2355-0 #### [facility] CLIA [id number] [address] [place] Platelets (Bld) [#/Vol] 233 10*3/uL Normal 150-400 [facility] Comment on above: Order Comment: Speci men Type: BLOOD SPECIMENOrdering Facility: [facility] Address: [address] [place] [address] Performed By: #### 3 5-0 #### [facility] CLIA [id number] [address] [place] RBC (Bld) [#/Vol] 2.54 10*6/uL Low 3.90-5.20 [facility] Comment on above: Order Comment: Speci men Type: BLOOD SPECIMENOrdering Facility: [facility] Address: [address] [place] [address] Performed By: #### 3 5-0 #### [facility] CLIA [id number] [address] [place] WBC (Bld) [#/Vol] 9.90 10*3/uL Normal 3.70-11.00 [facility] Comment on above: Order Comment: Speci men Type: BLOOD SPECIMENOrdering Facility: [facility] Address: [address] [place] [address] Performed By: #### 3 2355-0 #### [facility] CLIA [id number] [address] [place] CONSULTon 06-20-2022 CONSULT HNO ID: [id number] Author: Christine Edouard MD Service: ? Author [...] needed woul (more content not included)... Normal [facility] CT ABD/PEL W IVCONon 022 CT ABD/PEL W IVCON * * *Final Report* * * DATE OF EXAM: Jun 20 2022 2:57PM [facility] 0530 - CT ABD/PEL W IVCON / [...] bilateral pleural effusions, larger on the right. Principal Biostatistician (topogram) images: No additional findings. IMPRESSION: Acute sigmoid diverticulitis. No evidence of perforation or diverticular abscess. Consolidation and volume loss with bronchial wall thickening in both lower lobes and right middle lobe. Small bilateral pleural effusions, larger on the right. Diffuse subcutaneous edema of the left flank extending into the thigh. Bilateral renal cortical scarring and small cysts. Atherosclerotic arterial and aortic calcifications. Physician President: PSCB Transcribe Date/Time: Jun 20 2022 3:18P Dictated by : DI MAYES MD This examination was interpreted and the report reviewed and electronically signed by: DI MAYES MD on Jun 20 2022 3:24PM EST [id number] Normal [facility] Hgb Bld-ncon 06-20-2022 Hemoglobin (Bld) [Mass/Vol] 7.0 g/dL Low 11.5-15.5 [facility] Comment on above: Order Comment: Speci men Type: BLOOD SPECIMEN [facility] Address: [address] [place] [id number] Performed By: #### T SCR #### [facility] CLIA [id number] 1 [place] [address] [place] ALLIED HEALTHon 06-19-2022 ALLIED HEALTH HNO ID: [id number] Author: Parul Ryan RN Service: Infection Prevention Author Type: ? Type: Allied Health Filed: 06/19/2022 5:49 PM Note Text: INFECTION PREVENTION NOTE Admission Date: 06/16/2022 Patient meets ?COVID Resolved? criteria and isolation has been discontinued as per [facility] guidance. SIGNATURE: Parul Ryan RN PATIENT NAME: Mel Castillo DATE: June 19, 2022 TIME: 5:49 PM PAGER/CONTACT #: Infection Prevention, [id number] Infection Prevention after hours/weekend pager: [phone] Normal [facility] Basic metabolic 2000 panelon 06-19-2022 Anion gap [Moles/Vol] 5 mmol/L Low 9-18 [facility] Comment on above: Order Comment: Speci men Type: BLOOD SPECIMENOrdering Facility: [facility] Address: [address] [place] [address] Performed By: #### 3 2355-0 #### [facility] CLIA [id number] 1 [place] [address] [place] Calcium [Mass/Vol] 8.1 mg/dL Low 8.5-10.2 [facility] Comment on above: Order Comment: Speci men Type: BLOOD SPECIMENOrdering Facility: [facility] Address: [address] [place] [address] Performed By: #### 3 2355-0 #### [facility] CLIA [id number] 1 [place] [address] [place] Chloride [Moles/Vol] 105 mmol/L Normal 97-105 [facility] Comment on above: Order Comment: Speci men Type: BLOOD SPECIMENOrdering Facility: [facility] Address: [address] [place] [address] Performed By: #### 3 2355-0 #### [facility] CLIA [id number] 1 [place] [address] [place] CO2 [Moles/Vol] 23 mmol/L Normal 22-30 [facility] Comment on above: Order Comment: Speci men Type: BLOOD SPECIMENOrdering Facility: [facility] Address: [address] [place] [address] Performed By: #### 3 2355-0 #### [facility] CLIA [id number] [address] Creatinine [Mass/Vol] 0.94 mg/dL Normal 0.58-0.96 [facility] Comment on above: Order Comment: Speci men Type: BLOOD SPECIMENOrdering Facility: [facility] Address: [address] [place] [address] Performed By: #### 3 2355-0 #### [facility] CLIA [id number] [address] ESTIMATED GLOMERULAR FILTRATION RATE 61 mL/min/1.73m??? Normal >=60 [facility] Comment on above: Order Comment: Speci men Type: BLOOD SPECIMENOrdering Facility: [facility] Address: [address] [place] [address] Result Comment: Isa mated Glomerular Filtration Rate [...] GFR. Performed By: #### 3 2355-0 #### [facility] CLIA [id number] [address] Glucose [Mass/Vol] 115 mg/dL High 74-99 [facility] Comment on above: Order Comment: Speci men Type: BLOOD SPECIMENOrdering Facility: [facility] Address: [address] [place] [address] Result Comment: The [place] Diabetes Association (ADA) provides guidance for cutoff [...] Standards of Medical Care in Diabetes 2016, [place] [employer] Association. Diabetes Care. 2016.39(Suppl 1). Performed By: #### 3 2355-0 #### [facility] CLIA [id number] [address] [place] Potassium [Moles/Vol] 4.4 mmol/L Normal 3.7-5.1 [facility] Comment on above: Order Comment: Speci men Type: BLOOD SPECIMENOrdering Facility: [facility] Address: [address] [place] [address] Performed By: #### 3 2355-0 #### [facility] CLIA [id number] [address] STATES OF [facility] Sodium [Moles/Vol] 133 mmol/L Low 136-144 [facility] Comment on above: Order Comment: Speci men Type: BLOOD SPECIMENOrdering Facility: [facility] Address: [address] [place] [address] Performed By: #### 3 2355-0 #### [facility] CLIA [id number] [address] STATES [facility] Urea nitrogen [Mass/Vol] 22 mg/dL High 7-21 [facility] Comment on above: Order Comment: Speci men Type: BLOOD SPECIMENOrdering Facility: [facility] Address: [address] [place] [address] Performed By: #### 3 2355-0 #### [facility] CLIA [id number] [address] [place] CBC panel Auto (Bld)on 06-19 Erythrocyte distribution width (RBC) [Ratio] 15.6 % High 11.5-15.0 [facility] Comment on above: Order Comment: Speci men Type: BLOOD SPECIMENOrdering Facility: [facility] Address: [address] [place] [address] Performed By: #### 5 8410-2 ####[facility] LABORATORYCLIA [id number] [address] Hematocrit (Bld) [Volume fraction] 24.0 % Low 36.0-46.0 [facility] Comment on above: Order Comment: Speci men Type: BLOOD SPECIMENOrdering Facility: [facility] Address: [address] [place] [address] Performed By: #### 5 8410-2 ####[facility] LABORATORYCLIA [id number] [address] OF [facility] Hemoglobin (Bld) [Mass/Vol] 7.6 g/dL Low 11.5-15.5 [facility] Comment on above: Order Comment: Speci men Type: BLOOD SPECIMENOrdering Facility: [facility] Address: [address] [place] [address] Performed By: #### 5 8410-2 ####[facility] LABORATORYCLIA [id number] [address] MCH (RBC) [Entitic mass] 29.9 pg Normal 26.0-34.0 [facility] Comment on above: Order Comment: Speci men Type: BLOOD SPECIMENOrdering Facility: [facility] Address: [address] [place] [address] Performed By: #### 5 8410-2 ####[facility] LABORATORYCLIA [id number] [address] [place] MCHC (RBC) [Mass/Vol] 31.7 g/dL Normal 30.5-36.0 [facility] Comment on above: Order Comment: Speci men Type: BLOOD SPECIMENOrdering Facility: [facility] Address: [address] [place] [address] Performed By: #### 5 8410-2 ####[facility] LABORATORYCLIA [id number] [address] [place] MCV (RBC) [Entitic vol] 94.5 fL Normal 80.0-100.0 [facility] Comment on above: Order Comment: Speci men Type: BLOOD SPECIMENOrdering Facility: [facility] Address: [address] [place] [address] Performed By: #### 5 8410-2 ####[facility] LABORATORYCLIA [id number] [address] [place] Nucleated RBC (Bld) [#/Vol] 0.04 10*3/uL High <0.01 [facility] Comment on above: Order Comment: Speci men Type: BLOOD SPECIMENOrdering Facility: [facility] Address: [address] [place] [address] Performed By: #### 5 8410-2 ####[facility] LABORATORYCLIA [id number] [address] [place] Platelet mean volume (Bld) [Entitic vol] 10.0 fL Normal 9.0-12.7 [facility] Comment on above: Order Comment: Speci men Type: BLOOD SPECIMENOrdering Facility: [facility] Address: [address] [address] Performed By: #### 5 8410-2 ####[facility] LABORATORYCLIA [id number] [address] [place] Platelets (Bld) [#/Vol] 219 10*3/uL Normal 150-400 [facility] Comment on above: Order Comment: Speci men Type: BLOOD SPECIMENOrdering Facility: [facility] Address: [address] [place] [address] Performed By: #### 5 8410-2 ####[facility] LABORATORYCLIA [id number] [place] [address] [place] RBC (Bld) [#/Vol] 2.54 10*6/uL Low 3.90-5.20 [facility] Comment on above: Order Comment: Speci men Type: BLOOD SPECIMENOrdering Facility: [facility] Address: [address] [place] [address] Performed By: #### 5 8410-2 ####[facility] LABORATORYCLIA [id number] [address] WBC (Bld) [#/Vol] 8.55 10*3/uL Normal 3.70-11.00 [facility] Comment on above: Order Comment: Speci men Type: BLOOD SPECIMENOrdering Facility: [facility] Address: [address] [place] [address] Performed By: #### 5 8410-2 ####[facility] LABORATORYCLIA [id number] [address] OF [facility] Hemoccult Stl Ql IAon 2021 Lower GI hemoglobin IA Ql (Stl) Positive Abnormal Negative [facility] Comment on above: Order Comment: Speci men Type: BLOOD SPECIMEN [facility] Address: [address] [place] [address] Performed By: #### T SCR #### [facility] CLIA [id number] [address] Hgb Bld-mCncon 06-19-2022 Hemoglobin (Bld) [Mass/Vol] 7.6 g/dL Low 11.5-15.5 [facility] Comment on above: Order Comment: Speci men Type: BLOOD SPECIMENOrdering Facility: [facility] Address: [address] [place] [address] Performed By: #### 7 18-7 ####[facility] LABORATORYCLIA [id number] [address] Magnesium SerPl-mCncon 06-19 Magnesium [Mass/Vol] 1.9 mg/dL Normal 1.7-2.3 [facility] Comment on above: Order Comment: Speci men Type: BLOOD SPECIMENOrdering Facility: [facility] Address: [address] [place] [address] Performed By: #### 3 2355-0 #### [facility] CLIA [id number] [address] [place] [address] OPERATIVE NOon 06-19-2022 OPERATIVE NO HNO ID: [id number] Author: Frida Rodriguez MD Service: Vascular Surgery Author Type: Physician Type: Operative Report Filed: 06/19/2022 2:59 PM Note Text: [facility] - Operative Report MEL GUADARRAMA : 1940 AGE: 81. SEX: F PATIENT TYPE: I HOSP SVC: ICU LOCATION: [facility] ATTENDING PHYSICIAN: DWAYNE ZAIDI CSN NUMBER: [id number] DATE OF SURGERY/PROCEDURE: 06/16/2022 INCISION/PROCEDURE START TIME: 5:01 PM INCISION CLOSE/PROCEDURE END TIME: 6:58 PM PREOPERATIVE DIAGNOSIS: Left lower extremity deep vein thrombosis. POSTOPERATIVE DIAGNOSIS: Left lower extremity deep vein thrombosis. SURGEON: Frida Rodriguez MD METAL REED TUNER: Resident, Emanuel Hull SURGERY/PROCEDURE: Venogram with intravascular [...] micropuncture needle and serially upsized to a 5-Luxembourger sheath. A venogram was then performed, which [...] time, the sheath was upsized to an 8-Luxembourger sheath. An intravascular ultrasound was performed. This [...] unit for further monitoring. Frida Rodriguez MD LM:[id number] Normal [facility] Phosphate SerPl-mCncon 06-19 Phosphate [Mass/Vol] 2.4 mg/dL Low 2.7-4.8 [facility] Comment on above: Order Comment: Speci men Type: BLOOD SPECIMENOrdering Facility: [facility] Address: [address] [address] Performed By: #### 3 2355-0 #### [facility] CLIA [id number] [address] aPTT PPPon 06-19-2022 aPTT Coag (PPP) [Time] 46.9 s High 23.0-32.4 [facility] Comment on above: Order Comment: Speci men Type: BLOOD SPECIMENOrdering Facility: [facility] Address: [address] [address] Performed By: #### 1 4979-9 ####[facility] LABORATORYCLIA [id number] [address] aPTT Coag (PPP) [Time] 83.8 s High 23.0-32.4 [facility] Comment on above: Order Comment: Speci men Type: BLOOD SPECIMENOrdering Facility: [facility] Address: [address] [address] Performed By: #### 3 2355-0 #### [facility] CLIA [id number] [address] OF [facility] Basic metabolic 2000 panelon 06-18-2022 Anion gap [Moles/Vol] 10 mmol/L Normal 9-18 [facility] Comment on above: Order Comment: Speci men Type: BLOOD SPECIMENOrdering Facility: [facility] Address: [address] [address] Performed By: #### 2 4321-2, 71022-6, , 2776-07 ####[facility] LABORATORYCLIA [id number] [place] [address] [place] Calcium [Mass/Vol] 8.0 mg/dL Low 8.5-10.2 [facility] Comment on above: Order Comment: Speci men Type: BLOOD SPECIMENOrdering Facility: [facility] Address: [address] [place] [address] Performed By: #### 2 4321-2, 18286-6, , 2776-07 ####[facility] LABORATORYCLIA [id number] [place] [address] [place] Chloride [Moles/Vol] 102 mmol/L Normal 97-105 [facility] Comment on above: Order Comment: Speci men Type: BLOOD SPECIMENOrdering Facility: [facility] Address: [address] [place] [address] Performed By: #### 2 4321-2, 41991-4, , 2776-07 ####[facility] LABORATORYCLIA [id number] [place] [address] [place] CO2 [Moles/Vol] 21 mmol/L Low 22-30 [facility] Comment on above: Order Comment: Speci men Type: BLOOD SPECIMENOrdering Facility: [facility] Address: [address] [place] [address] Performed By: #### 2 4321-2, 63092-6, , 2776-07 ####[facility] LABORATORYCLIA [id number] [place] [address] [place] Creatinine [Mass/Vol] 1.17 mg/dL High 0.58-0.96 [facility] Comment on above: Order Comment: Speci men Type: BLOOD SPECIMENOrdering Facility: [facility] Address: [address] [place] [address] Performed By: #### 2 4321-2, 37739-2, , 2776-07 ####[facility] HOSPITALIA [id number] [place] [address] [place] ESTIMATED GLOMERULAR FILTRATION RATE 47 mL/min/1.73m??? Low >=60 [facility] Comment on above: Order Comment: Samirrobson mason Type: BLOOD SPECIMENOrdering Facility: [facility] Address: [address] [place] [address] Result Comment: Isa mated Glomerular Filtration Rate [...] actual GFR. Performed By: #### 2 4321-2, 94463-1, , 2776-07 ####[facility] HOSPITALIA [id number] [place] [id number] [place] Glucose [Mass/Vol] 112 mg/dL High 74-99 [facility] Comment on above: Order Comment: Rhina mason Type: BLOOD SPECIMENOrdering Facility: [facility] Address: [address] [place] [address] Result Comment: The [place] Diabetes Association (ADA) provides guidance for cutoff [...] Standards of Medical Care in Diabetes 2016, [place] [employer]. Diabetes Care. 2016.39(Suppl 1). Performed By: #### 2 4321-2, 30147-2, , 2776-07 ####[facility]PITALCLIA [id number] [place] [address] [place] Potassium [Moles/Vol] 4.4 mmol/L Normal 3.7-5.1 [facility] Comment on above: Order Comment: Speci men Type: BLOOD SPECIMENOrdering Facility: [facility] Address: [address] [place] [address] Performed By: #### 2 4321-2, 66123-3, 50837-2, 2776-07 ####[facility] LABORATORYCLIA [id number] [address] STATES OF [facility] Sodium [Moles/Vol] 133 mmol/L Low 136-144 [facility] Comment on above: Order Comment: Speci men Type: BLOOD SPECIMENOrdering Facility: [facility] Address: [address] [place] [address] Performed By: #### 2 4321-2, 00085-6, , 2776-07 ####[facility] LABORATORYCLIA [id number] [address] [place] Urea nitrogen [Mass/Vol] 25 mg/dL High 7-21 [facility] Comment on above: Order Comment: Speci men Type: BLOOD SPECIMENOrdering Facility: [facility] Address: [address] [place] [address] Performed By: #### 2 4321-2, 00098-2, , 2776-07 ####[facility] LABORATORYCLIA [id number] [address] STATES OF [facility] CBC panel Auto (Bld)on 06-18 Erythrocyte distribution width (RBC) [Ratio] 15.6 % High 11.5-15.0 [facility] Comment on above: Order Comment: Speci men Type: BLOOD SPECIMENOrdering Facility: [facility] Address: [address] [place] [address] Performed By: #### 5 8410-2 ####[facility] LABORATORYCLIA [id number] [address] [place] Hematocrit (Bld) [Volume fraction] 26.8 % Low 36.0-46.0 [facility] Comment on above: Order Comment: Speci men Type: BLOOD SPECIMENOrdering Facility: [facility] Address: [address] [place] [address] Performed By: #### 5 8410-2 ####[facility] LABORATORYCLIA [id number] [address] OF [facility] Hemoglobin (Bld) [Mass/Vol] 8.5 g/dL Low 11.5-15.5 [facility] Comment on above: Order Comment: Speci men Type: BLOOD SPECIMENOrdering Facility: [facility] Address: [address] [place] [address] Performed By: #### 5 8410-2 ####[facility] LABORATORYCLIA [id number] [address] OF [facility] MCH (RBC) [Entitic mass] 30.1 pg Normal 26.0-34.0 [facility] Comment on above: Order Comment: Speci men Type: BLOOD SPECIMENOrdering Facility: [facility] Address: [address] [place] [address] Performed By: #### 5 8410-2 ####[facility] LABORATORYCLIA [id number] [address] MCHC (RBC) [Mass/Vol] 31.7 g/dL Normal 30.5-36.0 [facility] Comment on above: Order Comment: Speci men Type: BLOOD SPECIMENOrdering Facility: [facility] Address: [address] [place] [address] Performed By: #### 5 8410-2 ####[facility] LABORATORYCLIA [id number] [address] [place] MCV (RBC) [Entitic vol] 95.0 fL Normal 80.0-100.0 [facility] Comment on above: Order Comment: Speci men Type: BLOOD SPECIMENOrdering Facility: [facility] Address: [address] [place] [address] Performed By: #### 5 8410-2 ####[facility] LABORATORYCLIA [id number] [place] [address] [place] Nucleated RBC (Bld) [#/Vol] 0.03 10*3/uL High <0.01 [facility] Comment on above: Order Comment: Speci men Type: BLOOD SPECIMENOrdering Facility: [facility] Address: [address] [place] [address] Performed By: #### 5 8410-2 ####[facility] LABORATORYCLIA [id number] [place] [address] [place] Platelet mean volume (Bld) [Entitic vol] 10.2 fL Normal 9.0-12.7 [facility] Comment on above: Order Comment: Speci men Type: BLOOD SPECIMENOrdering Facility: [facility] Address: [address] [place] [address] Performed By: #### 5 8410-2 ####[facility] LABORATORYCLIA [id number] [address] [place] Platelets (Bld) [#/Vol] 234 10*3/uL Normal 150-400 [facility] Comment on above: Order Comment: Speci men Type: BLOOD SPECIMENOrdering Facility: [facility] Address: [address] [place] [address] Performed By: #### 5 8410-2 ####[facility] LABORATORYCLIA [id number] [place] [address] [place] RBC (Bld) [#/Vol] 2.82 10*6/uL Low 3.90-5.20 [facility] Comment on above: Order Comment: Speci men Type: BLOOD SPECIMENOrdering Facility: [facility] Address: [address] [place] [address] Performed By: #### 5 8410-2 ####[facility] LABORATORYCLIA [id number] [place] [address] [place] WBC (Bld) [#/Vol] 8.77 10*3/uL Normal 3.70-11.00 [facility] Comment on above: Order Comment: Speci men Type: BLOOD SPECIMENOrdering Facility: [facility] Address: [facility] [place] [address] Performed By: #### 5 8410-2 ####[facility] LABORATORYCLIA [id number] [place] [address] [facility] CONSULT PROGon 06-18-2022 CONSULT PROG HNO ID: [id number] Author: Jessica Colmenares APRN.SKILLED LABORER Service: Cardiovascular Medicine Author Type: Nurse Practitioner Type: Consult Progress Note Filed: 06/18/2022 2:46 PM Note Text: The ECHO reviewed, EF 59%. No significant valvular abnormalities. Chart reviewed, no further recommendations. Thank you, Jessica Colmenares APRN.SKILLED LABORER Normal [facility] CONSULT PROG HNO ID: [id number] Author: Cirilo Yip RPh Service: Pharmacy Author [...] any questions or concerns. SIGNATURE: Cirilo Yip RPh DATE/TIME: 06/18/2022 12:02 PM [facility] CONSULT PROG HNO ID: [id number] Author: Nimo Arzola MD Service: General Surgery [...] questions or concerns Mon-Fri 6a-5p please page [phone]. After 5pm and on Weekends and Holidays, please page [phone] if in ICU or [phone] if on RNF. Subjective SUBJECTIVE: No acute [...] kg/m? O2 Therapy: Room Air IANDO: Date 06/17/22699 - 06/18/2265806/18/22699 - 06/19/22 0659 Shift 7693-8663 2890-5129 7856-5235 24 Hour Total 9633-5133 8551-0963 0193-1755 24 Hour Total INTAKE IV 350 15 365 Volume (mL) 15 15 Volume (mL) (lactated ringers iv infusion) 350 350 Shift Total 350 15 365 OUTPUT Urine 7842 955 5628 Void (ml) 1450 1450 Output ( External Collection Device 06/16/22 2331) 400 400 # of BMs Stool Incontinence 1 x 1 x Number of BMs 1 x 1 x Shift Total 4347 545 7015 Weight (kg) 71.2 71.2 71.2 71.2 71.2 [...] Hospital Course/Operatio (more content not included)... Normal [facility] Lipid 1996 panelon Cholesterol [Mass/Vol] 139 mg/dL Normal <200 [facility] Comment on above: Order Comment: Speci men Type: BLOOD SPECIMENOrdering Facility: [facility] Address: [address] [place] [address] Result Comment: <200 mg/dL, Desirable 200-239 mg/dL, Borderline high >239 mg/dL, High Performed By: #### 2 4321-2, 63811-9, , 2776-07 ####[facility] LABORATORYCLIA [id number] [address] STATES OF [facility] Cholesterol in HDL [Mass/Vol] 56 mg/dL Normal >39 [facility] Comment on above: Order Comment: Samiri isabella Type: BLOOD SPECIMENOrdering Facility: [facility] Address: [address] [place] [address] Result Comment: 40-5 9 mg/dL, Acceptable >59 mg/dL, High: Negative risk factor for coronary heart disease <40 mg/dL, Low: Positive risk factor for coronary heart disease Performed By: #### 2 4321-2, 85695-5, , 2776-07 ####[facility] LABORATORYCLIA [id number] [address] [place] Cholesterol in LDL [Mass/Vol] 64 mg/dL Normal <100 [facility] Comment on above: Order Comment: Samiri men Type: BLOOD SPECIMENOrdering Facility: [facility] Address: [address] [place] [address] Result Comment: <100 mg/dL, Optimal 100-129 mg/dL, Near optimal/above optimal 130-159 mg/dL, Borderline high 160-189 mg/dL, High >189 mg/dL, Very high Secondary prevention optimal LDL Cholesterol levels are recommended to be < 70 mg/dL Performed By: #### 2 4321-2, 14884-1, 97451-9, 2776-07 ####[facility] LABORATORYCLIA [id number] [place] [address] [place] Cholesterol in LDL/Cholesterol in HDL [Mass ratio] 1.14 {ratio} Normal <2.54 [facility] Comment on above: Order Comment: Speci men Type: BLOOD SPECIMENOrdering Facility: [facility] Address: [address] [place] [address] Result Comment: Refe rence: 1. National Cholesterol Education Program ATP III Guideline At-A-Glance Quick Desk Reference: National Heart, Lung, and Blood Ismay. National Institutes of Health. 2001: NIH Publication No. 01-3305. 2. An International Atherosclerosis Society position paper: global recommendations for the management of dyslipidemia: executive summary, Atherosclerosis. 2014: 232(2):410-413. Performed By: #### 2 4321-2, 49688-5, , 2776-07 ####[facility] LABORATORYCLIA [id number] [address] [place] Cholesterol in VLDL [Mass/Vol] 19 mg/dL Normal <30 [facility] Comment on above: Order Comment: Speci men Type: BLOOD SPECIMENOrdering Facility: [facility] Address: [address] [place] [address] Performed By: #### 2 4321-2, 44657-7, , 2776-07 ####[facility] LABORATORYCLIA [id number] [place] [address] [place] Cholesterol non HDL [Mass/Vol] 83 mg/dL Normal <130 [facility] Comment on above: Order Comment: Speci men Type: BLOOD SPECIMENOrdering Facility: [facility] Address: [address] [address] Result Comment: <130 mg/dL, Optimal 130-159 mg/dL, Near optimal/above optimal 160-189 mg/dL, Borderline high 190-219 mg/dL, High >219 mg/dL, Very high Secondary prevention optimal non HDL Cholesterol levels are recommended to be <100 mg/dL Performed By: #### 2 4321-2, 38483-6, , 2776-07 ####[facility] LABORATORYCLIA [id number] [address] Cholesterol.total/Pastora sterol in HDL [Mass ratio] 2.48 {ratio} Normal <5.10 [facility] Comment on above: Order Comment: Speci men Type: BLOOD SPECIMENOrdering Facility: [facility] Address: [address] [place] [address] Performed By: #### 2 4321-2, 43047-8, , 2776-07 ####[facility] LABORATORYCLIA [id number] [address] FASTING TIME 8 hrs Normal [facility] Comment on above: Order Comment: Speci men Type: BLOOD SPECIMENOrdering Facility: [facility] Address: [address] [place] [address] Performed By: #### 2 4321-2, 20019-2, , 2776-07 ####[facility] LABORATORYCLIA [id number] [address] Triglyceride [Mass/Vol] 93 mg/dL Normal <150 [facility] Comment on above: Order Comment: Speci men Type: BLOOD SPECIMENOrdering Facility: [facility] Address: [address] [place] [address] Result Comment: <150 mg/dL, Normal 150-199 mg/dL, Borderline high 200-499 mg/dL, High >499 mg/dL, Very high Performed By: #### 2 4321-2, 69349-1, , 2776-07 ####[facility] LABORATORYCLIA [id number] [address] Magnesium SerPl-mCncon 12-02 -2022 Magnesium [Mass/Vol] 2.1 mg/dL Normal 1.7-2.3 [facility] Comment on above: Order Comment: Speci men Type: BLOOD SPECIMENOrdering Facility: [facility] Address: [address] [place] [address] Performed By: #### 2 4321-2, 39588-7, 48390-4, 2776- ####[facility] LABORATORYCLIA [id number] [address] [place] Phosphate SerPl-mCncon 06-18 Phosphate [Mass/Vol] 3.3 mg/dL Normal 2.7-4.8 [facility] Comment on above: Order Comment: Speci men Type: BLOOD SPECIMENOrdering Facility: [facility] Address: [address] [place] [address] Performed By: #### 2 4321-2, 51149-7, , 2776-07 ####[facility] LABORATORYCLIA [id number] [place] [address] [place] aPTT PPPon 06-18-2022 aPTT Coag (PPP) [Time] 37.2 s High 23.0-32.4 [facility] Comment on above: Order Comment: Speci men Type: BLOOD SPECIMENOrdering Facility: [facility] Address: [address] [place] [address] Performed By: #### 9 4500-6 #### [facility] CLIA [id number] [address] [place] [address] [place] aPTT Coag (PPP) [Time] 58.8 s High 23.0-32.4 [facility] Comment on above: Order Comment: Speci men Type: BLOOD SPECIMENOrdering Facility: [facility] Address: [address] [place] [address] Performed By: #### 1 4979-9 ####[facility] LABORATORYCLIA [id number] [place] [address] [place] aPTT Coag (PPP) [Time] 127.7 s High 23.0-32.4 [facility] Comment on above: Order Comment: Speci men Type: BLOOD SPECIMEN Ordering Facility: [facility] Address: [place] [address] Performed By: #### T SCR #### [facility] CLIA [id number] ALLIED HEALTHon 06-17-2022 ALLIED HEALTH HNO ID: [id number] Author: RT [place](R) Service: Radiology Author Type: [...] RT [place](R) June 17, 2022 9:30 AM Normal [facility] HNO ID: [id number] Author: Jeremías Bragg II Service: Infection Prevention [...] TIME: 8:27 AM PAGER/CONTACT #: Infection Prevention, [id number] Infection Prevention after hours/weekend pager: [phone] Normal [facility] ANES POSTPROC EVALon 022 ANES POSTPROC EVAL HNO ID: [id number] Author: Larry Moss MD Service: Anesthesiology Author Type: Anesthesiologist Type: Anesthesia Postprocedure Evaluation Filed: 06/17/2022 6:51 AM Note Text: POST ANESTHESIA EVALUATION NOTE : 1940 Procedure Summary Date: 06/16/22 Room / Location: [address] [place] Anesthesia Start: 1609 Anesthesia Stop: 1934 [...] June 17, 2022 TIME: 6:50 AM CSN: [id number] Normal [facility] Basic metabolic 2000 panelon 06-17-2022 Anion gap [Moles/Vol] 9 mmol/L Normal 9-18 [facility] Comment on above: Order Comment: Speci men Type: BLOOD SPECIMENOrdering Facility: [facility] Address: [address] [place] [address] Performed By: #### 2 4321-2, , 2776-07 ####[facility] LABORATORYCLIA [id number] [place] [address] [place] Calcium [Mass/Vol] 7.9 mg/dL Low 8.5-10.2 [facility] Comment on above: Order Comment: Speci men Type: BLOOD SPECIMENOrdering Facility: [facility] Address: [address] [place] [address] Performed By: #### 2 432-2, , 2776-07 ####[facility] LABORATORYCLIA [id number] [place] [address] [place] Chloride [Moles/Vol] 107 mmol/L High 97-105 [facility] Comment on above: Order Comment: Speci men Type: BLOOD SPECIMENOrdering Facility: [facility] Address: [address] [place] [address] Performed By: #### 2 4321-2, , 2776-07 ####[facility] LABORATORYCLIA [id number] [place] [address] [place] CO2 [Moles/Vol] 21 mmol/L Low 22-30 [facility] Comment on above: Order Comment: Speci men Type: BLOOD SPECIMENOrdering Facility: [facility] Address: [address] [place] [address] Performed By: #### 2 4321-2, , 2776-07 ####[facility]ORATORYCLIA [id number] [address] STATES OF [facility] Creatinine [Mass/Vol] 0.99 mg/dL High 0.58-0.96 [facility] Comment on above: Order Comment: Rhina mason Type: BLOOD SPECIMENOrdering Facility: [facility] Address: [address] [place] [address] Performed By: #### 2 4321-2, , 2776-07 ####[facility] LABORATORYCLIA [id number] [address] ESTIMATED GLOMERULAR FILTRATION RATE 57 mL/min/1.73m??? Low >=60 [facility] Comment on above: Order Comment: Rhina mason Type: BLOOD SPECIMENOrdering Facility: [facility] Address: [address] [place] [address] Result Comment: Isa mated Glomerular Filtration Rate [...] Performed By: #### 2 4321-2, , 2776-07 ####[facility] LABORATORYCLIA [id number] [address] STATES OF [facility] Glucose [Mass/Vol] 84 mg/dL Normal 74-99 [facility] Comment on above: Order Comment: Rhina mason Type: BLOOD SPECIMENOrdering Facility: [facility] Address: [address] [place] [address] Result Comment: The [place] Diabetes Association (ADA) provides guidance for cutoff [...] Standards of Medical Care in Diabetes 2016, [place] [employer]. Diabetes Care. 2016.39(Suppl 1). Performed By: #### 2 4321-2, , 2776-07 ####[facility] LABORATORYCLIA [id number] [place] [address] [place] Potassium [Moles/Vol] 4.3 mmol/L Normal 3.7-5.1 [facility] Comment on above: Order Comment: Speci men Type: BLOOD SPECIMENOrdering Facility: [facility] Address: [address] [place] [address] Performed By: #### 2 4321-2, , 2776-07 ####[facility] LABORATORYCLIA [id number] [address] STATES OF [facility] Sodium [Moles/Vol] 137 mmol/L Normal 136-144 [facility] Comment on above: Order Comment: Speci men Type: BLOOD SPECIMENOrdering Facility: [facility] Address: [address] [place] [address] Performed By: #### 2 4321-2, , 2776-07 ####[facility] LABORATORYCLIA [id number] [address] [place] Urea nitrogen [Mass/Vol] 27 mg/dL High 7-21 [facility] Comment on above: Order Comment: Speci men Type: BLOOD SPECIMENOrdering Facility: [facility] Address: [address] [address] Performed By: #### 2 4321-2, , 2776-07 ####[facility] LABORATORYCLIA [id number] [address] [place] CBC panel Auto (Bld)on 06-17 Erythrocyte distribution width (RBC) [Ratio] 15.5 % High 11.5-15.0 [facility] Comment on above: Order Comment: Speci men Type: BLOOD SPECIMENOrdering Facility: [facility] Address: [address] [address] Performed By: #### 5 8410-2 ####[facility] LABORATORYCLIA [id number] [address] Hematocrit (Bld) [Volume fraction] 26.6 % Low 36.0-46.0 [facility] Comment on above: Order Comment: Speci men Type: BLOOD SPECIMENOrdering Facility: [facility] Address: [address] [place] [address] Performed By: #### 5 8410-2 ####[facility] LABORATORYCLIA [id number] [address] Hemoglobin (Bld) [Mass/Vol] 8.5 g/dL Low 11.5-15.5 [facility] Comment on above: Order Comment: Speci men Type: BLOOD SPECIMENOrdering Facility: [facility] Address: [address] [place] [address] Performed By: #### 5 8410-2 ####[facility] LABORATORYCLIA [id number] [address] STATES OF [facility] MCH (RBC) [Entitic mass] 30.0 pg Normal 26.0-34.0 [facility] Comment on above: Order Comment: Speci men Type: BLOOD SPECIMENOrdering Facility: [facility] Address: [address] [place] [address] Performed By: #### 5 8410-2 ####[facility] LABORATORYCLIA [id number] [address] OF [facility] MCHC (RBC) [Mass/Vol] 32.0 g/dL Normal 30.5-36.0 [facility] Comment on above: Order Comment: Speci men Type: BLOOD SPECIMENOrdering Facility: [facility] Address: [address] [place] [address] Performed By: #### 5 8410-2 ####[facility] LABORATORYCLIA [id number] [address] MCV (RBC) [Entitic vol] 94.0 fL Normal 80.0-100.0 [facility] Comment on above: Order Comment: Speci men Type: BLOOD SPECIMENOrdering Facility: [facility] Address: [address] [address] Performed By: #### 5 8410-2 ####[facility] LABORATORYCLIA [id number] [place] [address] [place] Nucleated RBC (Bld) [#/Vol] 0.02 10*3/uL High <0.01 [facility] Comment on above: Order Comment: Speci men Type: BLOOD SPECIMENOrdering Facility: [facility] Address: [address] [place] [address] Performed By: #### 5 8410-2 ####[facility] LABORATORYCLIA [id number] [address] [place] Platelet mean volume (Bld) [Entitic vol] 9.5 fL Normal 9.0-12.7 [facility] Comment on above: Order Comment: Speci men Type: BLOOD SPECIMENOrdering Facility: [facility] Address: [address] [place] [address] Performed By: #### 5 8410-2 ####[facility] LABORATORYCLIA [id number] [address] [place] Platelets (Bld) [#/Vol] 223 10*3/uL Normal 150-400 [facility] Comment on above: Order Comment: Speci men Type: BLOOD SPECIMENOrdering Facility: [facility] Address: [address] [address] Performed By: #### 5 8410-2 ####[facility] LABORATORYCLIA [id number] [place] [address] [place] RBC (Bld) [#/Vol] 2.83 10*6/uL Low 3.90-5.20 [facility] Comment on above: Order Comment: Speci men Type: BLOOD SPECIMENOrdering Facility: [facility] Address: [address] [place] [address] Performed By: #### 5 8410-2 ####[facility] LABORATORYCLIA [id number] [place] [address] [facility] WBC (Bld) [#/Vol] 8.61 10*3/uL Normal 3.70-11.00 [facility] Comment on above: Order Comment: Speci men Type: BLOOD SPECIMENOrdering Facility: [facility] Address: [place] [address] Performed By: #### 5 8410-2 ####[facility] LABORATORYCLIA [id number] [place] [address] [facility] CONSULTon 06-17-2022 CONSULT HNO ID: [id number] Author: García Monique MD Service: Cardiovascular Medicine Author Type: Physician Type: Consults Filed: 06/17/2022 11:14 AM Note Text: CARDIOVASCULAR INTENSIVE CARE UNIT ([facility]) History AND Physical Note PATIENT NAME: Mel Castillo DATE: June 17, 2022 ADMITTED FOR: Subjective HPI Ms. Mel Castillo is a 81 year old female with PMH: - Paroxysmal Afib - GERD - HTN - Hypothyroidism Patient [facility] on 06/16/2022 for evaluation of left [...] her covid symptoms. 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 Comment: This test has been authorized by FDA under an Emergency Use Authorization (EUA). IMAGING: CT chest: No results found for: (more content not included)... Normal [facility] CONSULT PROGon 06-17-2022 CONSULT PROG HNO ID: [id number] Author: Dominique Lauren RPh Service: Pharmacy Author [...] any questions or concerns. SIGNATURE: Dominique Lauren [facility] DATE/TIME: 06/17/2022 3:47 PM Normal [facility] CONSULT PROG HNO ID: [id number] Author: Emanuel Hull MD Service: General Surgery [...] questions or concerns Mon-Fri 6a-5p please page [phone]. After 5pm and on Weekends and Holidays, please page [phone] if in ICU or [phone] if on RNF. Subjective SUBJECTIVE: NAEO. Was able to get some good sleep. 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 Normal [facility] ECHOon 06-17-2022 Echocardiography Echocardiography Report: Transthoracic Echo [facility] Date of service: 06/17/2022 10:27:19 AM - [place] Ordering physician: GARCÍA MONIQUE Indication: Nonsustained atrial fibrillation Technologist: Glendy Pena [facility] Interpreting physician: Nando Costa MD PATIENT: [...] * * Final * * * CC [facility] Image : [id number] Normal [facility] Magnesium SerPl-mCncon 06-17 Magnesium [Mass/Vol] 2.1 mg/dL Normal 1.7-2.3 [facility] Comment on above: Order Comment: Rhina mason Type: BLOOD SPECIMENOrdering Facility: [facility] Address: [address] [place] [address] Performed By: #### 2 4321-2, , 2776-07 ####[facility] LABORATORYCLIA [id number] [address] OF [facility] Phosphate SerPl-mCncon 06-17 Phosphate [Mass/Vol] 3.8 mg/dL Normal 2.7-4.8 [facility] Comment on above: Order Comment: Rhina mason Type: BLOOD SPECIMENOrdering Facility: [facility] Address: [address] [place] [address] Performed By: #### 2 4321-2, 35320-3, 2777 ####[facility] LABORATORYCLIA [id number] [place] [address] [place] XR CHEST 1V [...] Comparison: None. RESULT: Lines, tubes, and devices: school lunch monitor leads. Hardware noted in the proximal [...] in both lungs suspicious for multifocal pneumonia. Physician President: DEVEN Transcribe Date/Time: Jun 17 2022 10:41A Dictated by : DI MINER MD This examination was interpreted and the report reviewed and electronically signed by: DI MINER MD on Jun 17 2022 10:43AM EST [id number] Normal [facility] aPTT PPPon 06-17-2022 aPTT Coag (PPP) [Time] 48.4 s High 23.0-32.4 [facility] Comment on above: Order Comment: Speci men Type: BLOOD SPECIMENOrdering Facility: [facility] Address: [address] [place] [address] Performed By: #### 9 4500-6 #### [facility] CLIA [id number] [address] OF [facility] aPTT Coag (PPP) [Time] 29.4 s Normal 23.0-32.4 [facility] Comment on above: Order Comment: Speci men Type: BLOOD SPECIMENOrdering Facility: [facility] Address: [address] [place] [address] Performed By: #### 3 2355-0 #### [facility] CLIA [id number] [address] aPTT Coag (PPP) [Time] 125.1 s High 23.0-32.4 [facility] Comment on above: Order Comment: Speci men Type: BLOOD SPECIMEN [facility] Address: [address] [place] [address] Performed By: #### T SCR #### [facility] CLIA [id number] [address] aPTT Coag (PPP) [Time] s High 23.0-32.4 [facility] Comment on above: Order Comment: Speci men Type: BLOOD SPECIMENOrdering Facility: [facility] Address: [address] [place] [address] Performed By: #### 3 2355-0 #### [facility] CLIA [id number] [address] aPTT Coag (PPP) [Time] 28.5 s Normal 23.0-32.4 [facility] Comment on above: Order Comment: Speci men Type: BLOOD SPECIMENOrdering Facility: [facility] Address: [address] [place] [address] Performed By: #### 1 4979-9 ####[facility] LABORATORYCLIA [id number] [address] ANES PRE-OPon 06-16-2022 ANES PRE-OP HNO ID: [id number] Author: Olu Wnin MD Service: Anesthesiology Author Type: Physician Type: Anesthesia Preprocedure Evaluation Filed: 06/16/2022 5:41 PM Note Text: ANESTHESIOLOGY DAY OF SURGERY NOTE : 1940 Procedure Information Date/Time: 06/16/221539 Procedure: TRANSCATHETER THERAPY VENOUS INFUSION FOR THROMBOLYSIS W/RADIOLOGICAL SUPERVISION/INTERPRETAT ION INITIAL TREATMENT DAY, venogram (Left: Leg lower ) [place]: [place] Surgeons: Frida Rodriguez MD Estimated body [...] June 16, 2022 TIME: 3:44 PM CSN: [id number] Normal [facility] BRIEF OP NOTon 06-16-2022 BRIEF OP NOT HNO ID: [id number] Author: Emanuel Hull MD Service: General Surgery [...] BRIEF OPERATIVE / PROCEDURE NOTE LOG ID: [id number] Surgery/Procedure Date: 06/16/2022 Incision/Procedure Start Time: 5:01 PM Incision Close/Procedure End Time: 6:58 PM Surgeon(s)/Proceduralis t(s) and Credit Products Officer(s): Surgeon(s) and Role: * Frida Rodriguez MD [...] and on weekends, please page surgery on-call [phone] (RNF) or [phone] (ICU) SIGNATURE: Emanuel Hull MD PATIENT NAME: Mel Castillo DATE: June 16, 2022 TIME: 7:19 PM PAGER/CONTACT #: [phone] Normal [facility] CBC W Auto Differential pane l (Bld)on 06-16-2022 Anisocytosis Ql (Bld) Present Normal [facility] Comment on above: Order Comment: Speci men Type: BLOOD SPECIMENOrdering Facility: [facility] Address: [address] [place] [address] Performed By: #### 5 7021-8 ####[facility] LABORATORYCLIA [id number] [place] [address] [place] Basophils (Bld) [#/Vol] 0.00 10*3/uL Normal <0.11 [facility] Comment on above: Order Comment: Speci men Type: BLOOD SPECIMENOrdering Facility: [facility] Address: [address] [place] [address] Performed By: #### 5 7021-8 ####[facility] LABORATORYCLIA [id number] [address] [place] Basophils/100 WBC (Bld) 0.0 % Normal A [facility] Comment on above: Order Comment: Speci men Type: BLOOD SPECIMENOrdering Facility: [facility] Address: [address] [place] [address] Performed By: #### 5 7021-8 ####[facility] LABORATORYCLIA [id number] [address] Differential cell count method Nom (Bld) Manual Normal [facility] Comment on above: Order Comment: Speci men Type: BLOOD SPECIMENOrdering Facility: [facility] Address: [address] [place] [address] Performed By: #### 5 7021-8 ####[facility] LABORATORYCLIA [id number] [address] Eosinophils (Bld) [#/Vol] 0.00 10*3/uL Normal <0.46 [facility] Comment on above: Order Comment: Speci men Type: BLOOD SPECIMENOrdering Facility: [facility] Address: [address] [place] [address] Performed By: #### 5 7021-8 ####[facility] LABORATORYCLIA [id number] [address] Eosinophils/100 WBC (Bld) 0.0 % Normal [facility] Comment on above: Order Comment: Speci men Type: BLOOD SPECIMENOrdering Facility: [facility] Address: [address] [place] [address] Performed By: #### 5 7021-8 ####[facility] LABORATORYCLIA [id number] [address] [place] Erythrocyte distribution width (RBC) [Ratio] 15.6 % High 11.5-15.0 [facility] Comment on above: Order Comment: Speci men Type: BLOOD SPECIMENOrdering Facility: [facility] Address: [address] [place] [address] Performed By: #### 5 7021-8 ####[facility] LABORATORYCLIA [id number] [address] [place] Hematocrit (Bld) [Volume fraction] 35.3 % Low 36.0-46.0 [facility] Comment on above: Order Comment: Speci men Type: BLOOD SPECIMENOrdering Facility: [facility] Address: [address] [place] [address] Performed By: #### 5 7021-8 ####[facility] LABORATORYCLIA [id number] [address] [place] Hemoglobin (Bld) [Mass/Vol] 11.4 g/dL Low 11.5-15.5 [facility] Comment on above: Order Comment: Speci men Type: BLOOD SPECIMENOrdering Facility: [facility] Address: [address] [place] [address] Performed By: #### 5 7021-8 ####[facility] LABORATORYCLIA [id number] [address] [place] Lymphocytes (Bld) [#/Vol] 1.27 10*3/uL Normal 1.00-4.00 [facility] Comment on above: Order Comment: Speci men Type: BLOOD SPECIMENOrdering Facility: [facility] Address: [address] [place] [address] Performed By: #### 5 7021-8 ####[facility] LABORATORYCLIA [id number] [address] STATES [facility] Lymphocytes/100 WBC (Bld) 8.0 % Normal [facility] Comment on above: Order Comment: Speci men Type: BLOOD SPECIMENOrdering Facility: [facility] Address: [address] [place] [address] Performed By: #### 5 7021-8 ####[facility] LABORATORYCLIA [id number] [address] [place] MCH (RBC) [Entitic mass] 30.2 pg Normal 26.0-34.0 [facility] Comment on above: Order Comment: Speci men Type: BLOOD SPECIMENOrdering Facility: [facility] Address: [address] [place] [address] Performed By: #### 5 7021-8 ####[facility] LABORATORYCLIA [id number] [address] [place] MCHC (RBC) [Mass/Vol] 32.3 g/dL Normal 30.5-36.0 [facility] Comment on above: Order Comment: Speci men Type: BLOOD SPECIMENOrdering Facility: [facility] Address: [address] [place] [address] Performed By: #### 5 7021-8 ####[facility] LABORATORYCLIA [id number] [address] [place] MCV (RBC) [Entitic vol] 93.6 fL Normal 80.0-100.0 [facility] Comment on above: Order Comment: Speci men Type: BLOOD SPECIMENOrdering Facility: [facility] Address: [address] [place] [address] Performed By: #### 5 7021-8 ####[facility] LABORATORYCLIA [id number] [address] [place] Monocytes (Bld) [#/Vol] 1.74 10*3/uL High <0.87 [facility] Comment on above: Order Comment: Speci men Type: BLOOD SPECIMENOrdering Facility: [facility] Address: [address] [place] [address] Performed By: #### 5 7021-8 ####[facility] LABORATORYCLIA [id number] [address] Monocytes/100 WBC (Bld) 11.0 % Normal A [facility] Comment on above: Order Comment: Speci men Type: BLOOD SPECIMENOrdering Facility: [facility] Address: [address] [place] [address] Performed By: #### 5 7021-8 ####[facility] LABORATORYCLIA [id number] [address] [place] MYELO% 4.0 % Normal [facility] Comment on above: Order Comment: Speci men Type: BLOOD SPECIMENOrdering Facility: [facility] Address: [address] [address] Performed By: #### 5 7021-8 ####[facility]ORATORYCLIA [id number] [address] [place] Neutrophils (Bld) [#/Vol] 12.02 10*3/uL High 1.45-7.50 [facility] Comment on above: Order Comment: Speci men Type: BLOOD SPECIMENOrdering Facility: [facility] Address: [address] [address] Performed By: #### 5 7021-8 ####[facility] LABORATORYCLIA [id number] [address] [place] Neutrophils/100 WBC (Bld) 76.0 % Normal [facility] Comment on above: Order Comment: Speci men Type: BLOOD SPECIMENOrdering Facility: [facility] Address: [address] [address] Performed By: #### 5 7021-8 ####[facility] LABORATORYCLIA [id number] [place] [address] [place] Nucleated RBC (Bld) [#/Vol] 10*3/uL Normal <0.01 [facility] Comment on above: Order Comment: Speci men Type: BLOOD SPECIMENOrdering Facility: [facility] Address: [address] [address] Performed By: #### 5 7021-8 ####[facility] LABORATORYCLIA [id number] [address] [place] Nucleated RBC/100 WBC (Bld) [Ratio] 0.0 /100 WBC Normal [facility] Comment on above: Order Comment: Speci men Type: BLOOD SPECIMENOrdering Facility: [facility] Address: [address] [address] Performed By: #### 5 7021-8 ####[facility] LABORATORYCLIA [id number] [address] [place] Platelet mean volume (Bld) [Entitic vol] 9.7 fL Normal 9.0-12.7 [facility] Comment on above: Order Comment: Speci men Type: BLOOD SPECIMENOrdering Facility: [facility] Address: [address] [address] Performed By: #### 5 7021-8 ####[facility] LABORATORYCLIA [id number] [address] Platelets (Bld) [#/Vol] 373 10*3/uL Normal 150-400 [facility] Comment on above: Order Comment: Speci men Type: BLOOD SPECIMENOrdering Facility: [facility] Address: [address] [address] Performed By: #### 5 7021-8 ####[facility] LABORATORYCLIA [id number] [address] Platelets Estimate (Bld) [#/Vol] Adequate Normal [facility] Comment on above: Order Comment: Speci men Type: BLOOD SPECIMENOrdering Facility: [facility] Address: [address] [place] [address] Performed By: #### 5 7021-8 ####[facility] LABORATORYCLIA [id number] [address] PROMYL% 1.0 % Normal [facility] Comment on above: Order Comment: Speci men Type: BLOOD SPECIMENOrdering Facility: [facility] Address: [address] [place] [address] Performed By: #### 5 7021-8 ####[facility] LABORATORYCLIA [id number] [address] RBC (Bld) [#/Vol] 3.77 10*6/uL Low 3.90-5.20 [facility] Comment on above: Order Comment: Speci men Type: BLOOD SPECIMENOrdering Facility: [facility] Address: [address] [place] [address] Performed By: #### 5 7021-8 ####[facility] LABORATORYCLIA [id number] [address] RED CELL MORPH Normal Normal [facility] Comment on above: Order Comment: Speci men Type: BLOOD SPECIMENOrdering Facility: [facility] Address: [address] [place] [address] Performed By: #### 5 7021-8 ####[facility] LABORATORYCLIA [id number] [address] SPHEROCYTES Few Normal [facility] Comment on above: Order Comment: Speci men Type: BLOOD SPECIMENOrdering Facility: [facility] Address: [address] [place] [address] Performed By: #### 5 7021-8 ####[facility] LABORATORYCLIA [id number] [address] [place] WBC (Bld) [#/Vol] 15.82 10*3/uL High 3.70-11.00 [facility] Comment on above: Order Comment: Speci men Type: BLOOD SPECIMENOrdering Facility: [facility] Address: [address] [place] [address] Result Comment: Resu lts checked and verified. Performed By: #### 5 7021-8 ####[facility] LABORATORYCLIA [id number] [address] CBC panel Auto (Bld)on 06-16 Erythrocyte distribution width (RBC) [Ratio] 15.5 % High 11.5-15.0 [facility] Comment on above: Order Comment: Speci men Type: BLOOD SPECIMENOrdering Facility: [facility] Address: [address] [place] [address] Performed By: #### 5 8410-2 ####[facility] LABORATORYCLIA [id number] [address] Hematocrit (Bld) [Volume fraction] 30.1 % Low 36.0-46.0 [facility] Comment on above: Order Comment: Speci men Type: BLOOD SPECIMENOrdering Facility: [facility] Address: [address] [place] [address] Performed By: #### 5 8410-2 ####[facility] LABORATORYCLIA [id number] [address] STATES OF [facility] Hemoglobin (Bld) [Mass/Vol] 9.8 g/dL Low 11.5-15.5 [facility] Comment on above: Order Comment: Speci men Type: BLOOD SPECIMENOrdering Facility: [facility] Address: [address] [place] [address] Performed By: #### 5 8410-2 ####[facility] LABORATORYCLIA [id number] [address] MCH (RBC) [Entitic mass] 30.8 pg Normal 26.0-34.0 [facility] Comment on above: Order Comment: Speci men Type: BLOOD SPECIMENOrdering Facility: [facility] Address: [address] [place] [address] Performed By: #### 5 8410-2 ####[facility] LABORATORYCLIA [id number] [address] MCHC (RBC) [Mass/Vol] 32.6 g/dL Normal 30.5-36.0 [facility] Comment on above: Order Comment: Speci men Type: BLOOD SPECIMENOrdering Facility: [facility] Address: [address] [place] [address] Performed By: #### 5 8410-2 ####[facility] LABORATORYCLIA [id number] [address] OF [facility] MCV (RBC) [Entitic vol] 94.7 fL Normal 80.0-100.0 [facility] Comment on above: Order Comment: Speci men Type: BLOOD SPECIMENOrdering Facility: [facility] Address: [address] [place] [address] Performed By: #### 5 8410-2 ####[facility] LABORATORYCLIA [id number] [address] Nucleated RBC (Bld) [#/Vol] 0.08 10*3/uL High <0.01 [facility] Comment on above: Order Comment: Speci men Type: BLOOD SPECIMENOrdering Facility: [facility] Address: [address] [place] [address] Performed By: #### 5 8410-2 ####[facility] LABORATORYCLIA [id number] [address] [place] Platelet mean volume (Bld) [Entitic vol] 9.6 fL Normal 9.0-12.7 [facility] Comment on above: Order Comment: Speci men Type: BLOOD SPECIMENOrdering Facility: [facility] Address: [address] [address] Performed By: #### 5 8410-2 ####[facility] LABORATORYCLIA [id number] [address] [place] Platelets (Bld) [#/Vol] 277 10*3/uL Normal 150-400 [facility] Comment on above: Order Comment: Speci men Type: BLOOD SPECIMENOrdering Facility: [facility] Address: [address] [address] Performed By: #### 5 8410-2 ####[facility] LABORATORYCLIA [id number] [address] [place] RBC (Bld) [#/Vol] 3.18 10*6/uL Low 3.90-5.20 [facility] Comment on above: Order Comment: Speci men Type: BLOOD SPECIMENOrdering Facility: [facility] Address: [address] [address] Performed By: #### 5 8410-2 ####[facility] LABORATORYCLIA [id number] [address] [place] WBC (Bld) [#/Vol] 10.43 10*3/uL Normal 3.70-11.00 [facility] Comment on above: Order Comment: Speci men Type: BLOOD SPECIMENOrdering Facility: [facility] Address: [address] [place] [address] Performed By: #### 5 8410-2 ####[facility] LABORATORYCLIA [id number] [place] [address] [place] CONSULTon 06-16-2022 CONSULT HNO ID: [id number] Author: Iman Saldana DO Service: General Surgery [...] or co (more content not included)... Normal [facility] CTA ABD/PEL/LOWER EXT W IVCO Non 06-16-2022 CTA ABD/PEL/LOWER EXT W IVCON * * *Final Report* * * DATE OF EXAM: Jun 16 2022 7:33AM [facility] 0122 - CTA ABD/PEL/LOWER EXT W IVCON [...] lobe consolidation may represent pneumonia or atelectasis. Physician President: PSCB Transcribe Date/Time: Jun 16 2022 7:54A Dictated by : ESTHER MCKEON MD This examination was interpreted and the report reviewed and electronically signed by: ESTHER MCKEON MD on Jun 16 2022 8:22AM EST [id number] Normal [facility] Comprehensive metabolic 2000 panelon 06-16-2022 Albumin [Mass/Vol] 3.2 g/dL Low 3.9-4.9 [facility] Comment on above: Order Comment: Speci men Type: BLOOD SPECIMENOrdering Facility: [facility] Address: [address] [place] [address] Performed By: #### 3 3959-8, 36337-9, 88921-4, 27369-2 ####[facility] LABORATORYCLIA [id number] [place] [address] [place] [facility] ALP [Catalytic activity/Vol] 111 U/L Normal 34-123 [facility] Comment on above: Order Comment: Speci men Type: BLOOD SPECIMENOrdering Facility: [facility] Address: [address] [place] [address] Performed By: #### 3 3959-8, 57537-0, 26292-3, 73859-3 ####[facility] LABORATORYCLIA [id number] [address] [place] ALT With P-5'-P [Catalytic activity/Vol] 20 U/L Normal 7-38 [facility] Comment on above: Order Comment: Speci men Type: BLOOD SPECIMENOrdering Facility: [facility] Address: [address] [place] [address] Performed By: #### 3 3959-8, 89573-5, 66203-4, 20626-2 ####[facility] LABORATORYCLIA [id number] [address] [place] Anion gap [Moles/Vol] 17 mmol/L Normal 9-18 [facility] Comment on above: Order Comment: Speci men Type: BLOOD SPECIMENOrdering Facility: [facility] Address: [address] [place] [address] Performed By: #### 3 3959-8, 46387-4, 23570-1, 76001-0 ####[facility] LABORATORYCLIA [id number] [address] [place] AST With P-5'-P [Catalytic activity/Vol] 13 U/L Normal 13-35 [facility] Comment on above: Order Comment: Speci men Type: BLOOD SPECIMENOrdering Facility: [facility] Address: [address] [address] Performed By: #### 3 3959-8, 47318-0, 76496-9, 80766-5 ####[facility] LABORATORYCLIA [id number] [place] [address] [place] Bilirubin [Mass/Vol] 0.3 mg/dL Normal 0.2-1.3 [facility] Comment on above: Order Comment: Speci men Type: BLOOD SPECIMENOrdering Facility: [facility] Address: [address] [address] Performed By: #### 3 3959-8, 36351-7, 56542-3, 05545-7 ####[facility] LABORATORYCLIA [id number] [place] [address] [place] Calcium [Mass/Vol] 9.1 mg/dL Normal 8.5-10.2 [facility] Comment on above: Order Comment: Speci men Type: BLOOD SPECIMENOrdering Facility: [facility] Address: [address] [place] [address] Performed By: #### 3 3959-8, 31200-9, 53812-8, 69622-9 ####[facility] LABORATORYCLIA [id number] [place] [address] [place] Chloride [Moles/Vol] 104 mmol/L Normal 97-105 [facility] Comment on above: Order Comment: Speci men Type: BLOOD SPECIMENOrdering Facility: [facility] Address: [address] [place] [address] Performed By: #### 3 3959-8, 41977-6, 63688-3, 77097-3 ####[facility] LABORATORYCLIA [id number] [place] [address] [place] CO2 [Moles/Vol] 18 mmol/L Low 22-30 [facility] Comment on above: Order Comment: Speci men Type: BLOOD SPECIMENOrdering Facility: [facility] Address: [address] [place] [address] Performed By: #### 3 3959-8, 70314-5, 14950-0, 14291-7 ####[facility]ITALCLIA [id number] [place] [id number] [place] [facility] Creatinine [Mass/Vol] 1.14 mg/dL High 0.58-0.96 [facility] Comment on above: Order Comment: Speci men Type: BLOOD SPECIMENOrdering Facility: [facility] Address: [address] [place] [address] Performed By: #### 3 3959-8, 25691-9, 26212-2, 36402-5 ####[facility]ITALIA [id number] [address] [place] ESTIMATED GLOMERULAR FILTRATION RATE 48 mL/min/1.73m??? Low >=60 [facility] Comment on above: Order Comment: Specrobson mason Type: BLOOD SPECIMENOrdering Facility: [facility] Address: [address] [place] [address] Result Comment: Isa mated Glomerular Filtration Rate [...] actual GFR. Performed By: #### 3 3959-8, 74951-6, 79432-5, 10354-3 ####[facility] LABORATORYIA [id number] [place] [id number] [place] Glucose [Mass/Vol] 122 mg/dL High 74-99 [facility] Comment on above: Order Comment: Speci men Type: BLOOD SPECIMENOrdering Facility: [facility] Address: [address] [place] [address] Result Comment: The [place] Diabetes Association (ADA) provides guidance for cutoff [...] Standards of Medical Care in Diabetes 2016, [place] [employer]. Diabetes Care. 2016.39(Suppl 1). Performed By: #### 3 3959-8, 95502-7, 43519-8, 02605-2 ####[facility] LABORATORYCLIA [id number] [place] [address] [place] Potassium [Moles/Vol] 4.4 mmol/L Normal 3.7-5.1 [facility] Comment on above: Order Comment: Speci men Type: BLOOD SPECIMENOrdering Facility: [facility] Address: [address] [place] [address] Performed By: #### 3 3959-8, 36203-8, 09540-2, 02865-7 ####[facility]ITALCLIA [id number] [place] [address] [place] Protein [Mass/Vol] 6.6 g/dL Normal 6.3-8.0 [facility] Comment on above: Order Comment: Speci men Type: BLOOD SPECIMENOrdering Facility: [facility] Address: [address] [place] [address] Performed By: #### 3 3959-8, 55937-8, 49687-4, 15499-2 ####[facility] LABORATORYCLIA [id number] [place] [address] [place] Sodium [Moles/Vol] 139 mmol/L Normal 136-144 [facility] Comment on above: Order Comment: Speci men Type: BLOOD SPECIMENOrdering Facility: [facility] Address: [address] [place] [address] Performed By: #### 3 3959-8, 01931-1, 93579-6, 35412-8 ####[facility] LABORATORYCLIA [id number] [place] [id number] [facility] [place] Urea nitrogen [Mass/Vol] 35 mg/dL High 7-21 [facility] Comment on above: Order Comment: Speci men Type: BLOOD SPECIMENOrdering Facility: [facility] Address: [place] [address] Performed By: #### 3 3959-8, 92108-8, 58211-9, 13408-2 ####[facility] LABORATORYCLIA [id number] [place] [id number] [facility] ED NOTEon 06-16-2022 ED NOTE HNO ID: [id number] Author: Adela Cortez RN Service: Emergency Medicine Author Type: Registered Nurse Type: ED Notes Filed: 06/16/2022 11:27 AM Note Text: Pts aptt is >139. Nongram states to hold dose and let MD know. Vascular resident made aware, MD ordered to hold dose x1 hour and then redraw aptt. Normal [facility] ED NOTE HNO ID: [id number] Author: Nancy Scott RN Service: Emergency Medicine Author Type: Registered Nurse Type: ED Notes Filed: 06/16/2022 7:13 AM Note Text: CT notified that pt has been moved to new room and is ready for testing [facility] ED NOTE HNO ID: [id number] Author: Marleen Blank RN Service: ? Author Type: Registered Nurse Type: ED Notes Filed: 06/16/2022 6:59 AM Note Text: Bed: 19-ED Expected date: Expected time: Means of arrival: Comments: Normal [facility] ED NOTE HNO ID: [id number] Author: Nancy Scott RN Service: Emergency Medicine Author Type: Registered Nurse Type: ED Notes Filed: 06/16/2022 6:44 AM Note Text: CT delayed due to pt needing to move rooms because of bed bugs. [facility] ED NOTE HNO ID: [id number] Author: Nancy Scott RN Service: Emergency Medicine Author Type: Registered Nurse Type: ED Notes Filed: 06/16/2022 3:09 AM Note Text: CT form faxed, ptt sent Normal [facility] ED NOTE HNO ID: [id number] Author: Nancy Scott RN Service: Emergency Medicine Author Type: Registered Nurse Type: ED Notes Filed: 06/16/2022 3:02 AM Note Text: US notified [facility] ED NOTE HNO ID: [id number] Author: Nancy Scott RN Service: Emergency Medicine Author Type: Registered Nurse Type: ED Notes Filed: 06/16/2022 2:48 AM Note Text: CT notified [facility] ED NOTE HNO ID: [id number] Author: Nancy Scott RN Service: Emergency Medicine Author Type: Registered Nurse Type: ED Notes Filed: 06/16/2022 2:43 AM Note Text: Labs sent [facility] ED NOTE HNO ID: [id number] Author: Davian Chen RN Service: ? Author Type: Registered Nurse Type: ED Notes Filed: 06/16/2022 2:06 AM Note Text: Bed: 15-ED Expected date: Expected time: Means of arrival: Comments: squad [facility] ED PROV NOTEon 06-16-2022 ED PROV NOTE HNO ID: [id number] Author: Vanessa Trevizo DO Service: Emergency Medicine [...] SpO2 Weight Height 06/16/2221006/16/2221006/16/22 0811 -- 06/16/2221006/16/22 02106/16/22 021 -- 91/65 (!) 130 36.5 ?C [...] Abnormal; Notable (more content not included)... Normal [facility] ED PROV NOTE HNO ID: [id number] Author: Vanessa Trevizo DO Service: Emergency Medicine [...] and diagnosis. Vanessa TrevizoDO 06/16/22 0323 Normal [facility] EKGon 06-16-2022 Electrocardiogram Ventricular Rate : 1 13 BPM Atrial Rate : 122 BPM QRS Duration : 100 ms Q-T Interval : 282 ms QTC Calculation(Bazett) : 386 ms Calculated R Gays : 46 degrees Calculated T Gays : -40 degrees ATRIAL FIBRILLATION WITH RAPID VENTRICULAR RESPONSE ABNORMAL QRS-T ANGLE, CONSIDER PRIMARY T WAVE ABNORMALITY ABNORMAL ECG NO PREVIOUS ECGS AVAILABLE Confirmed by MD LEONE CAROL ([id number]) on 06/16/2022 6:43:12 PM NAME : MEL GUADARRAMA PID : [id number] : 1940 Gender : Female Race : ORD : Procedure Date : Jun 16 2022 07:37:07 Edit Date : Jun 16 2022 18:43:17 Diagnosis: ATRIAL FIBRILLATION WITH RAPID VENTRICULAR RESPONSE ABNORMAL QRS-T ANGLE, CONSIDER PRIMARY T WAVE ABNORMALITY ABNORMAL ECG NO PREVIOUS ECGS AVAILABLE Confirmed by MD LEONE CAROL ([id number]) on 06/16/2022 6:43:12 PM Test Reason : Location : 4 : AKED 19 Overread By : MD LEONE CAROL Edited By : MD LEONE CAROL Referred By : , Acquired by : PATRICIA MOE [facility] HIGH SENSITIVITY TROPONIN T (INITIAL)on 06-16-2022 HIGH SENSITIVITY CHRISTOPHER 34 ng/L High <12 [facility] Comment on above: Order Comment: Speci men Type: BLOOD SPECIMENOrdering Facility: [facility] Address: [address] [place] [address] Result Comment: When assessing risk for acute [...] MACE. Performed By: #### 3 2355-0 #### [facility] CLIA [id number] [address] HIGH SENSITIVITY TROPONIN T (SECOND)on 06-16-2022 HIGH SENSITIVITY CHRISTOPHER 28 ng/L High <12 [facility] Comment on above: Order Comment: Rhina isabella Type: BLOOD SPECIMENOrdering Facility: [facility] Address: [address] [place] [address] Result Comment: When assessing risk for acute [...] 30 day MACE. Performed By: #### L [id number] ####[facility]ATORYCLIA [id number] [address] [place] HIGH SENSITIVITY TROPONIN T (THIRD) 3 HRS AFTER INITIALon 06-16-2022 HIGH SENSITIVITY CHRISTOPHER 23 ng/L High <12 [facility] Comment on above: Order Comment: Rhina isabella Type: BLOOD SPECIMENOrdering Facility: [facility] Address: [address] [place] [address] Result Comment: When assessing risk for acute [...] 30 day MACE. Performed By: #### L [id number] ####[facility] LABORATORYCLIA [id number] [place] [address] [place] HISTORY PHYSICALon HISTORY PHYSICAL HNO ID: [id number] Author: Kristen Jones APRN.CNP Service: Hospital Medicine Author Type: Nurse Practitioner Type: HANDP Filed: 06/16/2022 1:27 PM Note Text: DEPARTMENT OF HOSPITAL MEDICINE HISTORY AND PHYSICAL EXAM SERVICE DATE: 06/16/2022 SERVICE TIME: 12:02 PM Primary Care Physician: Dr. Evans Admitting Provider: Kristen Jones APRN.CNP NIGHT AND WEEKEND COVERAGE: After 7pm, please call cross cover pager #[phone] Subjective CHIEF COMPLAINT: Left leg pain, discoloration [...] this patient has 2 charts. Mel Jose [id number] and Mel Castillo [id number]. PAST MEDICAL HISTORY Diagnosis Date Acute bacterial [...] chest pain Gastrointestinal: + diarrhea x 1 [employer] 2ND SHIFT Genitourinary: Denies dysuria Musculoskeletal: + left leg [...] or rh (more content not included)... Normal [facility] Magnesium [facility] Magnesium [Mass/Vol] 2.4 mg/dL High 1.7-2.3 [facility] Comment on above: Order Comment: Rhina mason Type: BLOOD SPECIMENOrdering Facility: [facility] Address: [address] [place] [address] Performed By: #### 3 3959-8, 46804-4, 70538-5, 63853-3 ####[facility] LABORATORYCLIA [id number] [address] [place] NT-proBNP [facility] Natriuretic peptide.B prohormone N-Terminal [Mass/Vol] 4156 pg/mL High <450 [facility] Comment on above: Order Comment: Speci isabella Type: BLOOD SPECIMEN [facility] Address: [address] [place] [address] Performed By: #### T SCR #### [facility] CLIA [id number] [address] [place] NURSING PROGon 06-16-2022 NURSING PROG HNO ID: [id number] Author: Kayden José RN Service: Trauma Author [...] TO THE RECEIVING NURSE. NIKKY FRAGA. Normal [facility] PT panel Coag (PPP)on 2021 INR Coag (PPP) [Relative time] 1.1 {INR} Normal 0.9-1.3 [facility] Comment on above: Order Comment: Rhina mason Type: BLOOD SPECIMENOrdering Facility: [facility] Address: [address] [place] [id number] Result Comment: Mayra min K Antagonist (VKA) Therapeutic Range: INR 2 to 3 (Target INR of 2.5) Note: For patients treated with VKA drugs, such as warfarin, the [place] [employer] 2012 Guideline recommends [...] Chest 2012, 141:7S-47S Daren HOYT et al. [facility] 2017, 70: 252-289 Performed By: #### 3 4528-0, 25179-5 ####[facility] LABORATORYCLIA [id number] [address] [place] PT Coag (PPP) [Time] 11.3 s Normal 9.7-13.0 [facility] Comment on above: Order Comment: Rhina mason Type: BLOOD SPECIMENOrdering Facility: [facility] Address: [place] [address] Performed By: #### 3 4528-0, 85236-0 ####[facility] LABORATORYCLIA [id number] [address] [place] Procalcitonin SerPl-mCncon 1 08-16-2021 Procalcitonin [Mass/Vol] 0.19 ng/mL High <0.09 [facility] Comment on above: Order Comment: Speci men Type: BLOOD SPECIMEN [facility] Address: [place] [address] Result Comment: For a guided interpretation of test results, please visit the Change in Procalcitonin Calculator, [email or web address]. Performed By: #### T SCR #### [facility] CLIA [id number] [address] SARS-CoV-2 RNA Resp Ql OXANA+p robeon 06-16-2022 SARS-CoV-2 (COVID-19) RNA OXANA+probe Ql (Resp) COVID 19 RESULT: SARS-CoV-2 (Agent of COVID-19) Detected by RT-PCR or equivalent method. This test has been authorized by FDA under an Emergency Use Authorization (EUA). Normal [facility] Comment on above: Performed By: #### 9 4500-6 #### [facility] CLIA [id number] [address] OF [facility] US DVT LOWER LTon 06-16-2022 US DVT [...] Torres MD on 0516 via verbal communication. Physician President: DEVEN Transcribe Date/Time: Jun 16 2022 5:07A Dictated by : SKIP NOEL MD This examination was interpreted and the report reviewed and electronically signed by: SKIP NOEL MD on Jun 16 2022 5:17AM EST [id number] Normal [facility] aPTT PPPon 06-16-2022 aPTT Coag (PPP) [Time] 74.2 s High 23.0-32.4 [facility] Comment on above: Order Comment: Specrobson mason Type: BLOOD SPECIMENOrdering Facility: [facility] Address: [address] [place] [address] Performed By: #### 1 4979-9 ####[facility] LABORATORYCLIA [id number] [address] STATES OF [facility] aPTT Coag (PPP) [Time] 134.7 s High 23.0-32.4 [facility] Comment on above: Order Comment: Rhina mason Type: BLOOD SPECIMENOrdering Facility: [facility] Address: [address] [place] [address] Performed By: #### 1 4979-9 ####[facility] LABORATORYCLIA [id number] [address] [place] aPTT Coag (PPP) [Time] s High 23.0-32.4 [facility] Comment on above: Order Comment: Rhina mason Type: BLOOD SPECIMENOrdering Facility: [facility] Address: [address] [place] [address] Performed By: #### 1 4979-9 ####[facility] LABORATORYCLIA [id number] [address] aPTT Coag (PPP) [Time] 21.7 s Low 23.0-32.4 [facility] Comment on above: Order Comment: Samirrobson mason Type: BLOOD SPECIMENOrdering Facility: [facility] Address: [address] [place] [address] Performed By: #### 3 4528-0, 37191-6 ####[facility] LABORATORYCLIA [id number] [address] CULTURE AND STAIN - TISSUEon 03-10-2020 [...] above: Performed By: #### C XTIS #### [place] [address] [place] [address] [place] [address] [place], [place] [id number] #### C/DAMIÁN #### [place] [address] [place] [address] CR Finger(s) Min 2 Views Rig hton 03-07-2020 CR Finger(s) Min 2 Views Right Patient Name: MEL POP Diagnostic Radiology Exam Date/Time 03/06/2020 10:30:00 EDT Exam CR Finger(s) Min 2 Views Right Ordering Physician MD GUSTVAO, JAYLA Stoll Accession Number [id number] CPT4 Codes 40318 () Reason For Exam pain Report Right [...] was communicated to JAYLA MCMAHAN via the iDoc24 Critical Result system on 03/07/2020 8:07 PM EDT, Message ID [id number]. Report Dictated on Final Dictating Physician: MD [...] above: Performed By: #### C XTIS #### [facility] [address] [place] [address] [place] [address] [place], [place] [id number] #### C/DAMIÁN #### [place] [address] [place] [address] Vital Signs Date Time Vital Sign Value Performing Clinician Facility 03-15-2025 11:06-0400 Body height 160 cm Andre Berry MD Work Phone: [facility] 03-15-2025 11:06-0400 Body mass index (BMI) [Ratio] 27.1 kg/m2 Andre Berry MD Work Phone: [facility] 03-15-2025 11:06-0400 Body temperature 97.39 [degF] Andre Berry MD Work Phone: [facility] 03-15-2025 11:06-0400 Body weight 69.4 kg Andre Berry MD Work Phone: [facility] [employer] Comment on above: unable to stand for ht and wt today 03-15-2025 11:06-0400 Diastolic blood pressure 48 mm[Hg] Andre Berry MD Work Phone: [facility] 03-15-2025 11:06-0400 Heart rate 45 /min Andre Berry MD Work Phone: [facility] 03-15-2025 11:06-0400 SaO2% (BldA) [Mass fraction] 100 % Andre Berry MD Work Phone: [facility] 03-15-2025 11:06-0400 Systolic blood pressure 97 mm[Hg] Andre Berry MD Work Phone: [facility] 12-24-2024 14:45-0400 Body mass index (BMI) [Ratio] 27.1 kg/m2 Kristyn Blankenship MD Work Phone: [facility] [employer] 12-24-2024 14:45-0400 Body weight 69.4 kg Kristyn Blankenship MD Work Phone: [facility] 12-05-2024 10:20-0400 Body height 160 cm Kristyn Blankenship MD Work Phone: [facility] [employer] 12-05-2024 10:20-0400 Body mass index (BMI) [Ratio] 29.23 kg/m2 Kristyn Blankenship MD Work Phone: [facility] [employer] 12-05-2024 10:20-0400 Body weight 74.84 kg Kristyn Blankenship MD Work Phone: [facility] 12-05-2024 10:20-0400 Diastolic blood pressure 78 mm[Hg] Kristyn Blankenship MD Work Phone: [facility] [employer] 12-05-2024 10:20-0400 Heart rate 78 /min Kristyn Blankenship MD Work Phone: [facility] [employer] 12-05-2024 10:20-0400 Respiratory rate 18 /min Kristyn Blankenship MD Work Phone: [facility] [employer] 12-05-2024 10:20-0400 SaO2% (BldA) [Mass fraction] 94 % Kristyn Blankenship MD Work Phone: [facility] [employer] 12-05-2024 10:20-0400 Systolic blood pressure 102 mm[Hg] Kristyn Blankenship MD Work Phone: [facility] [employer] 11-22-2024 13:45-0400 Diastolic blood pressure 54 mm[Hg] Kristyn Blankenship MD Work Phone: [facility] [employer] 11-22-2024 13:45-0400 Heart rate 58 /min Kristyn Blankenship MD Work Phone: [facility] [employer] 11-22-2024 13:45-0400 Respiratory rate 18 /min Kristyn Blankenship MD Work Phone: [facility] [employer] 11-22-2024 13:45-0400 SaO2% (BldA) [Mass fraction] 95 % Kristyn Blankenship MD Work Phone: [facility] [employer] 11-22-2024 13:45-0400 Systolic blood pressure 139 mm[Hg] Kristyn Blankenship MD Work Phone: [facility] [employer] 11-22-2024 13:15-0400 Body temperature 97.11 [degF] Kristyn Blankenship MD Work Phone: [facility] [employer] 11-22-2024 08:25-0400 Body height 160 cm Kristyn Blankenship MD Work Phone: [facility] [employer] 11-22-2024 08:25-0400 Body mass index (BMI) [Ratio] 29.23 kg/m2 Kristyn Blankenship MD Work Phone: [facility] [employer] 11-22-2024 08:25-0400 Body weight 74.84 kg Kristyn Blankenship MD Work Phone: [facility] [employer] 11-05-2024 15:42-0400 Body height 160 cm Kristyn Blankenship MD Work Phone: [facility] [employer] 11-05-2024 15:42-0400 Body mass index (BMI) [Ratio] 29.23 kg/m2 Kristyn Blankenship MD Work Phone: [facility] [employer] 11-05-2024 15:42-0400 Body weight 74.84 kg Kristyn Blankenship MD Work Phone: [facility] [employer] 11-05-2024 15:42-0400 Diastolic blood pressure 64 mm[Hg] Kristyn Blankenship MD Work Phone: [facility] [employer] 11-05-2024 15:42-0400 Heart rate 65 /min Kristyn Blankenship MD Work Phone: [facility] [employer] 11-05-2024 15:42-0400 Respiratory rate 18 /min Kristyn Blankenship MD Work Phone: [facility] [employer] 11-05-2024 15:42-0400 SaO2% (BldA) [Mass fraction] 98 % Kristyn Blankenship MD Work Phone: [employer] 11-05-2024 15:42-0400 Systolic blood pressure 122 mm[Hg] Kristyn Blankenship MD Work Phone: [employer] 08-22-2024 10:32-0500 Body height 160 cm Henok Darlyn PA-C Work Phone: [employer] 08-22-2024 10:32-0500 Body mass index (BMI) [Ratio] 29.23 kg/m2 Henok Darlyn PA-C Work Phone: [employer] 08-22-2024 10:32-0500 Body weight 74.84 kg Henok Darlyn PA-C Work Phone: [employer] 08-22-2024 10:32-0500 Diastolic blood pressure 62 mm[Hg] Henok Darlyn PA-C Work Phone: [employer] 08-22-2024 10:32-0500 Respiratory rate 18 /min Henok Darlyn PA-C Work Phone: [employer] 08-22-2024 10:32-0500 Systolic blood pressure 104 mm[Hg] Henok Darlyn PA-C Work Phone: [employer] 08-16-2024 07:19-0500 Body temperature 97.59 [degF] Mariana King DO Work Phone: [employer] 08-16-2024 07:19-0500 Diastolic blood pressure 66 mm[Hg] Mariana King DO Work Phone: [employer] 08-16-2024 07:19-0500 Heart rate 85 /min Mariana King DO Work Phone: [employer] 08-16-2024 07:19-0500 Respiratory rate 18 /min Mariana King DO Work Phone: [employer] 08-16-2024 07:19-0500 SaO2% (BldA) [Mass fraction] 94 % Mariana King DO Work Phone: [employer] 08-16-2024 07:19-0500 Systolic blood pressure 135 mm[Hg] Mariana King DO Work Phone: [employer] 08-03-2024 08:32-0500 Body height 162 cm Mariana King DO Work Phone: [employer] 08-03-2024 08:32-0500 Body mass index (BMI) [Ratio] 28.58 kg/m2 Mariana King DO Work Phone: [employer] 08-03-2024 08:32-0500 Body weight 75 kg Mariana King DO Work Phone: [employer] 07-07-2024 06:03-0500 Body temperature 97.7 [degF] Wm Mudrakola DO Work Phone: [employer] 07-07-2024 06:03-0500 Diastolic blood pressure 67 mm[Hg] Wm Mudrakola DO Work Phone: [employer] 07-07-2024 06:03-0500 Heart rate 69 /min Wm Mudrakola DO Work Phone: [employer] 07-07-2024 06:03-0500 Respiratory rate 12 /min Wm Mudrakola DO Work Phone: [employer] 07-07-2024 06:03-0500 SaO2% (BldA) [Mass fraction] 94 % Wm Mudrakola DO Work Phone: [employer] 07-07-2024 06:03-0500 Systolic blood pressure 149 mm[Hg] Wm Mudrakola DO Work Phone: [employer] 07-05-2024 10:00-0500 Body height 162.6 cm Wm Mudrakola DO Work Phone: [employer] 07-05-2024 10:00-0500 Body mass index (BMI) [Ratio] 27.46 kg/m2 Wm Mudrakola DO Work Phone: [employer] 07-05-2024 10:00-0500 Body weight 72.58 kg Wm Mudrakola DO Work Phone: [employer] 05-14-2024 15:34-0400 Body height 162.6 cm Jared Evans MD Work Phone: [facility] [employer] 05-14-2024 15:34-0400 Body mass index (BMI) [Ratio] 25.23 kg/m2 Jared Evans MD Work Phone: [facility] [employer] 05-14-2024 15:34-0400 Body weight 66.68 kg Jared Evans MD Work Phone: [facility] [employer] 04-25-2024 13:39-0400 Body height 162.6 cm Henoknette Pipernes PA-C Work Phone: [facility] [employer] 04-25-2024 13:39-0400 Body mass index (BMI) [Ratio] 25.23 kg/m2 Henok Pipernes PA-C Work Phone: [facility] [employer] 04-25-2024 13:39-0400 Body weight 66.68 kg Henok Hernandez PA-C Work Phone: [facility] [employer] 04-25-2024 13:39-0400 Diastolic blood pressure 66 mm[Hg] Henok Hernandez PA-C Work Phone: [facility] [employer] 04-25-2024 13:39-0400 Heart rate 98 /min Henok Pipernes PA-C Work Phone: [facility] [employer] 04-25-2024 13:39-0400 Respiratory rate 18 /min Henok Pipernes PA-C Work Phone: [facility] [employer] 04-25-2024 13:39-0400 SaO2% (BldA) [Mass fraction] 95 % Henok Pipernes PA-C Work Phone: [facility] [employer] 04-25-2024 13:39-0400 Systolic blood pressure 110 mm[Hg] Henok Pipernes PA-C Work Phone: [facility] [employer] 04-13-2024 08:04-0400 Heart rate 92 /min Winifred Cornell DO Work Phone: [employer] 04-13-2024 07:49-0400 Body temperature 97.2 [degF] Winifred Cornell DO Work Phone: [employer] 04-13-2024 07:49-0400 Diastolic blood pressure 89 mm[Hg] Winifred Cornell DO Work Phone: [employer] 04-13-2024 07:49-0400 Respiratory rate 20 /min Winifred Cornell DO Work Phone: [employer] 04-13-2024 07:49-0400 SaO2% (BldA) [Mass fraction] 98 % Winifred Cornell DO Work Phone: [employer] 04-13-2024 07:49-0400 Systolic blood pressure 156 mm[Hg] Winifred Cornell DO Work Phone: [employer] 04-03-2024 17:52-0400 Body height 162.6 cm Winifred Cornell DO Work Phone: [employer] 04-03-2024 17:52-0400 Body mass index (BMI) [Ratio] 27.38 kg/m2 Winifred Cornell DO Work Phone: [employer] 04-03-2024 17:52-0400 Body weight 72.35 kg Winifred Cornell DO Work Phone: [employer] 07-27-2023 14:23-0500 Body height 162.6 cm Ming Weinberg MD Work Phone: [employer] 07-27-2023 14:23-0500 Body mass index (BMI) [Ratio] 27.29 kg/m2 Ming Weinberg MD Work Phone: [employer] 07-27-2023 14:23-0500 Body weight 72.12 kg Ming Weinberg MD Work Phone: [employer] 05-14-2022 15:01-0400 Diastolic blood pressure 84 mm[Hg] Jared Velazquez PA-C Work Phone: [facility] 05-14-2022 15:01-0400 Systolic blood pressure 154 mm[Hg] Jared Carlingh PA-C Work Phone: [facility] 05-14-2022 14:32-0400 Body height 162.6 cm Jared Velazquez PA-C Work Phone: [facility] 05-14-2022 14:32-0400 Body weight 72.58 kg Jared Velazquez PA-C Work Phone: [facility] 05-14-2022 14:32-0400 Heart rate 71 /min Jared Velazquez PA-C Work Phone: [facility] [facility] 05-14-2022 14:32-0400 Respiratory rate 16 /min Jared Velazquez PA-C Work Phone: [facility] 05-14-2022 14:32-0400 SaO2% (BldA) [Mass fraction] 98 % Jared Velazquez PA-C Work Phone: [facility] 03-07-2020 09:57-0400 Body Temperature 98.71 [degF] [employer] [place] , [place] 03-07-2020 09:57-0400 BP Diastolic 64 mm[Hg] [facility] [place] 03-07-2020 09:57-0400 BP Systolic 161 mm[Hg] [facility] [place] 03-07-2020 09:57-0400 Pulse (Heart Rate) 77 /min [facility] [place] 03-07-2020 09:57-0400 Pulse Oximetry 96 % [facility] [place] 03-07-2020 08:32-0400 Respiratory Rate 14 /min [employer]- [place] , [place] 02-08-2020 20:50-0400 Body Temperature 97.5 [degF] [employer] [place] , [place] 02-08-2020 20:50-0400 BP Diastolic 81 mm[Hg] [facility]uri [facility] [place] 02-08-2020 20:50-0400 BP Systolic 193 mm[Hg] Maryuri [employer]- [place] , [place] 02-08-2020 20:50-0400 Pulse (Heart Rate) 68 /min Maryuri [facility], [place] 02-08-2020 20:50-0400 Pulse Oximetry 97 % [facility] [place] 02-08-2020 20:50-0400 Respiratory Rate 16 /min [facility] [place] [place] Encounters Encounter Date Encounter Type Care Provider Facility Start: 03-15-2025 End: 03-15-2025 Office outpatient visit 25 minutes Andre Patel MD Work Phone: [facility] Comment on above: Acute deep vein thro mbosis (DVT) of proximal vein of lower extremity, unspecified laterality (HCC) (Primary Dx) Start: 03-15-2025 End: 03-15-2025 ambulatory MEGAN LUANNEVICTORIANO [facility] Start: 03-04-2025 ambulatory Megan Luannesaros OLS Faci lity:[facility] Start: 02-25-2025 ambulatory Megan Katsaros OLS Faci lity:[facility] Start: 02-18-2025 ambulatory Megan Katsaros OLS Faci lity:[facility] Start: 02-15-2025 ambulatory Megan Katsaros OLS Faci lity:[facility] Start: 02-11-2025 ambulatory Peter Katsaros OLS Faci lity:[facility] Start: 02-07-2025 ambulatory Megan Katsaros OLS Faci lity:[facility] Start: 02-04-2025 ambulatory Megan Katsaros OLS Faci lity:[facility] Start: 01-31-2025 ambulatory Megan Katsaros OLS Faci lity:[facility] Start: 01-28-2025 ambulatory Megan Katsaros OLS Faci lity:[facility] Start: 01-25-2025 ambulatory Megan Katsaros OLS Faci lity:[facility] Start: 01-23-2025 ambulatory Peter Katsaros OLS Faci lity:[facility] Start: 01-22-2025 ambulatory Megan Katsaros OLS Faci lity:[facility] Start: 01-21-2025 ambulatory Megan Katsaros OLS Faci lity:[facility] Start: 01-17-2025 ambulatory Peter Katsaros OLS Faci lity:[facility] Start: 01-16-2025 ambulatory Megan EVERETT Faci lity:[facility] Start: 01-15-2025 ambulatory Megan EVERETT Faci lity:[facility] Start: 01-07-2025 ambulatory Megan EVERETT Faci lity:[facility] Start: 01-02-2025 End: 01-02-2025 Orders Only Namrata Christensen [facility] Comment on above: 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) Right retinal detach ment (Primary Dx); Hemorrhagic choroidal detachment of right eye; Pseudophakia, right eye Start: 12-24-2024 End: 12-24-2024 ambulatory MEGAN PARKSFOZIA [facility] Start: 12-24-2024 End: 12-24-2024 Office outpatient visit 15 minutes Kristyn Blankenship MD Work Phone: [facility] Comment on above: Aftercare following surgery of the circulatory system (Primary Dx); PAD (peripheral artery disease) (HCC) Start: 12-13-2024 End: 02-12-2025 Follow-up encounter Shivani Rayo CNP Work Phone: [facility] Surgery [place] Comment on above: Vascular US lower ex tremity arterial duplex right with MICHELLE Start: 12-13-2024 End: 12-13-2024 ambulatory [facility] Start: 12-13-2024 End: 12-13-2024 Subsequent hospital visit by physician Kristyn Blankenship MD Work Phone: [facility] V[facility] Lab Comment on above: Skin ulcer of toe of right foot, limited to breakdown of skin (HCC); PAD (peripheral artery disease) (HCC); Aftercare following surgery of the circulatory system Start: 12-05-2024 End: 12-05-2024 ambulatory JAREDRAMAN EVANS [facility] Start: 12-05-2024 End: 12-05-2024 Office outpatient visit 10 minutes Kristyn Blankenship MD Work Phone: [facility] [place] Comment on above: Skin ulcer of toe of right foot, limited to breakdown of skin (HCC) (Primary Dx); PAD (peripheral artery disease) (HCC); Aftercare following surgery of the circulatory system Start: 11-22-2024 End: 11-22-2024 ambulatory [facility] Start: 11-22-2024 End: 11-22-2024 Subsequent hospital visit by physician Kristyn Blankenship MD Work Phone: [facility] MA[facility] OR Start: 11-15-2024 End: 11-15-2024 ambulatory Megan EVERETT Facility:[facility] Start: 11-09-2024 End: 11-13-2024 ambulatory Henok Darlyn PA-C Work Phone: [employer] Comment on above: 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) (Primary Dx) Pre-op evaluation (P rimary Dx) Start: 11-09-2024 End: 11-13-2024 Preprocedural examination done [facility] Work Phone: [employer] Work Phone: Start: 11-05-2024 End: 11-05-2024 ambulatory [facility] Start: 11-05-2024 End: 11-05-2024 Office outpatient visit 25 minutes Kristyn Blankenship MD Work Phone: [employer] Comment on above: PAD (peripheral aidee ry disease) (HCC) (Primary Dx); Skin ulcer of toe of right foot, limited to breakdown of skin (HCC) Start: 10-08-2024 End: 10-08-2024 ambulatory Megan EVERETT [facility] Work Phone: Start: 10-08-2024 End: 10-08-2024 Departed Referred Megan Beebe -Mckenzie [facility] [employer] Start: 10-08-2024 Registered Referred Megan Beebe - Mckenzie [facility] Start: 10-08-2024 End: 10-08-2024 ambulatory Megan EVERETT Facility:[facility] Start: 10-01-2024 End: 10-01-2024 Patient encounter procedure Savana Lopez MD Work Phone: Ophthalmology Comment on above: 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); Right retinal detachment; Postoperative eye state; Pseudophakia, right eye; Subluxation of right lens Start: 10-01-2024 End: 10-01-2024 ambulatory SAVANA LOPEZ Facility:[facility] Start: 09-17-2024 End: 09-17-2024 ambulatory Megan EVERETT [facility] Work Phone: Start: 09-17-2024 End: 09-17-2024 Departed Referred Megan Montana Rosangela [employer] Start: 09-17-2024 Registered Referred Megan BISWAS Start: 09-17-2024 End: 09-17-2024 ambulatory Megan EVERETT Facility:[facility] Start: 09-10-2024 End: 09-10-2024 ambulatory Megan EVERETT [facility] Work Phone: Start: 09-10-2024 End: 09-10-2024 Departed Referred Megan Montana [facility] [employer] Start: 09-10-2024 Registered Referred Megan Rincon Rosangelajered [facility] Start: 09-10-2024 End: 09-10-2024 ambulatory Megan EVERETT Facility:[facility] Start: 09-05-2024 End: 09-05-2024 ambulatory SAVANA LOPEZ Facility:[facility] Start: 09-05-2024 End: 09-05-2024 Patient encounter procedure Savana Lopez MD Work Phone: Ophthalmology Comment on above: Postoperative eye st ate; Hemorrhagic choroidal detachment of right eye; Pseudophakia, right eye; Subluxation of right lens Start: 09-03-2024 End: 09-03-2024 ambulatory Megan EVERETT [facility] Work Phone: Start: 09-03-2024 End: 09-03-2024 Departed Referred Megan Montana Rosangela [employer] Start: 09-03-2024 Registered Referred Megan Rincon Rosangelajered [facility] Start: 09-03-2024 End: 09-03-2024 ambulatory Megan EVERETT Facility:[facility] Start: 08-22-2024 End: 08-22-2024 ambulatory JARED EVANS [facility] Start: 08-22-2024 End: 08-22-2024 Office outpatient visit 15 minutes Henok Lantigua PA-C Work Phone: [facility] [place] Comment on above: Acute deep vein thro mbosis (DVT) of iliac vein of right lower extremity (HCC) (Primary Dx); PAD (peripheral artery disease) (HCC) Start: 08-20-2024 End: 08-20-2024 ambulatory Megan EVERETT [facility] Work Phone: Start: 08-20-2024 End: 08-20-2024 Departed Referred Megan Beebe [place] Rosangela [facility] Start: 08-20-2024 End: 08-20-2024 ambulatory Megan Luannevictoriano EVERETT Facility:[facility] Start: 08-03-2024 End: 08-03-2024 Subsequent hospital visit by physician [facility] [address] Exam Room [address] [facility] [address] Comment on above: Arrived Start: 08-03-2024 End: 08-16-2024 ambulatory DEVIKA ESCOBAR [facility] Start: 08-03-2024 End: 08-16-2024 Emergency department patient visit Mariana King DO Work Phone: [facility] Comment on above: Aspiration pneumonit is (CMS/HCC) (HCC) (Primary Dx); Vomiting and diarrhea; LORENZA (acute kidney injury) (HCC) Start: 08-01-2024 End: 08-01-2024 ambulatory SAVANA LOPEZ Facility:[facility] Start: 08-01-2024 End: 08-01-2024 Patient encounter [...] ambulatory SAVANA A MAMMO Facility: [facility] Start: 07-23-2024 End: 07-23-2024 ambulatory SAVANA A MAMMO Facility:[facility] Start: 07-23-2024 End: 07-23-2024 Patient encounter [...] and management of inpatient SELF Facility:[facility] Start: 07-12-2024 End: 07-12-2024 Orders Only [...] and management of inpatient SELF Facility:[facility] Start: 07-09-2024 End: 07-09-2024 Unlisted evaluation [...] management of inpatient RED HENDERSON Facility:[facility] Start: 07-07-2024 Emergency department patient visit PROVIDER NOT IN SYSTEM Facility:[facility] Start: 07-06-2024 End: 07-06-2024 Telephone encounter Ryan Elizondo MD Work Phone: Ophthalmology Start: 07-05-2024 End: 07-07-2024 ambulatory RED HENDERSON [facility] Start: 07-05-2024 End: 07-07-2024 Emergency department patient visit mW Nunes DO Work Phone: [facility] Trauma Neuro Progressive Care Unit PCU 3W Comment on above: Vision loss of right eye (Primary Dx); Acute intractable headache, unspecified headache type; Visual disturbance, subjective Start: 06-19-2024 End: 07-03-2024 ambulatory DEVIKA LEUNG Facility:[facility] Start: 06-19-2024 End: 07-03-2024 Subsequent hospital visit by physician Devika Leung DO Work Phone: [facility]OR PATI[facility] Comment on above: [I63.9] - Cerebral i nfarction Start: 06-10-2024 End: 06-19-2024 Evaluation and management of inpatient TORSTEN SILVA Facility:[facility] Start: 05-22-2024 End: 05-22-2024 [facility] Start: 05-21-2024 End: 05-21-2024 ambulatory [facility] Start: 05-21-2024 End: 05-21-2024 Anticoagulant drug monitoring [facility] Work Phone: [facility] Anticoagulation Management Service Comment on above: Atrial fibrillation, unspecified type (HCC); Acute venous embolism and thrombosis of deep vessels of proximal end of right lower extremity (HCC) Start: 05-14-2024 End: 05-14-2024 Subsequent hospital visit by physician Jared Evans MD Work Phone: [facility] Non-Invasive Cardiology Comment on above: Paroxysmal atrial fi brillation (HCC) Start: 05-14-2024 End: 05-14-2024 ambulatory [facility] Start: 05-09-2024 End: 05-09-2024 ambulatory [facility] Start: 05-09-2024 End: 05-09-2024 Anticoagulant drug monitoring Patty Duttonck [facility] Work Phone: [facility]ticoagulation Management Service Comment on above: Atrial fibrillation, unspecified type (HCC); Acute venous embolism and thrombosis of deep vessels of proximal end of right lower extremity (HCC) Start: 05-01-2024 End: 05-01-2024 ambulatory [facility] Start: 05-01-2024 End: 05-01-2024 Anticoagulant drug monitoring Won Tipton RN [facility]tico[facility] Management [facility] Comment on above: Atrial fibrillation, unspecified type (HCC); Acute venous embolism and thrombosis of deep vessels of proximal end of right lower extremity (HCC) Start: 04-27-2024 End: 04-27-2024 Refill Phyllis Aguilera RN Work Phone: [facility]tico[facility] Management [facility] Comment on above: Deep vein thrombosis (DVT) of lower extremity, unspecified chronicity, unspecified laterality, unspecified vein (HCC); Atrial fibrillation, unspecified type (HCC); Acute venous embolism and thrombosis of deep vessels of proximal end of right lower extremity (HCC) Start: 04-25-2024 End: 04-25-2024 Office outpatient visit 15 minutes Henok Hernandez PA-C Work Phone: [facility] [place] Comment on above: Acute deep vein thro mbosis (DVT) of iliac vein of right lower extremity (HCC) (Primary Dx); PAD (peripheral artery disease) (HCC) Start: 04-25-2024 End: 04-25-2024 ambulatory [facility] Start: 04-23-2024 End: 04-23-2024 ambulatory [facility] Start: 04-20-2024 End: 07-20-2024 Transcribe Orders Jared Evans MD Work Phone: [facility] Central Scheduling Comment on above: Paroxysmal atrial fi brillation (HCC) (Primary Dx) Start: 04-19-2024 End: 04-19-2024 ambulatory JARED EVANS [facility] Start: 04-19-2024 End: 04-19-2024 Anticoagulant drug monitoring Marybeth Rahman [facility] Anticoagulation Management Service Comment on above: Atrial fibrillation, unspecified type (HCC); Acute venous embolism and thrombosis of deep vessels of proximal end of right lower extremity (HCC) Start: 04-16-2024 End: 04-16-2024 ambulatory ANTHONY YEE [facility] Start: 04-14-2024 End: 04-14-2024 Anticoagulant drug monitoring Ulices Orr PharmD [facility] Pharmacy Comment on above: Deep vein thrombosis (DVT) of lower extremity, unspecified chronicity, unspecified laterality, unspecified vein (HCC) (Primary Dx) Start: 04-03-2024 End: 04-13-2024 Evaluation and management of inpatient Winifred Cornell DO Work Phone: [facility] Medical Unit 4N Comment on above: Ischemic leg (Primar y Dx); Right leg pain; Peripheral arterial disease (HCC); Right leg weakness; Atrial fibrillation, unspecified type (HCC) Start: 07-27-2023 End: 07-27-2023 Office outpatient new 30 minutes Ming Weinberg MD Work Phone: [facility] Comment on above: 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) Start: 06-15-2023 End: 06-15-2023 Subsequent hospital visit by physician Jared Evans MD Work Phone: [facility] MRI Comment on above: Abnormal findings on diagnostic imaging of other specified body structures; Pain in left leg Start: 06-01-2023 Transcribe Orders Jared Evans MD Work Phone: [facility] Central Scheduling Comment on above: Abnormal findings on diagnostic imaging of other specified body structures (Primary Dx); Pain in left leg Start: 05-24-2023 End: 05-24-2023 Subsequent hospital visit by physician Jared Evans MD Work Phone: [facility] Comment on above: Other specified soft tissue disorders Start: 05-23-2023 Transcribe Orders Jared Evans MD Work Phone: [facility] Comment on above: Other specified soft tissue disorders (Primary Dx) Start: 03-08-2023 End: 03-08-2023 Subsequent hospital visit by physician Jared Evans MD Work Phone: [facility] CT Comment on above: Localized swelling, mass and lump, neck Start: 02-28-2023 Transcribe Orders Jared Evans MD Work Phone: [facility] Comment on above: Localized swelling, mass and lump, neck (Primary Dx) Start: 02-22-2023 End: 02-22-2023 Subsequent hospital visit by physician Jared Evans MD Work Phone: [facility] Comment on above: Localized swelling, mass and lump, neck Start: 02-17-2023 Transcribe Orders Jared Evans MD Work Phone: [facility] Central Scheduling Comment on above: Localized swelling, mass and lump, neck (Primary Dx) Start: 07-06-2022 Telephone encounter Inés Tubbs RN NOC Comment on above: Follow Up Phone Call (All Clear) Start: 06-21-2022 End: 06-21-2022 Evaluation and management of inpatient SIM ELIZABETH Facility:[facility] Start: 06-19-2022 ambulatory Tamara Olivares [facility] [place] [phone] CARD/HF/PD Start: 06-16-2022 End: 06-29-2022 Evaluation and management of inpatient BERNIE BIRD Facility:[facility] Start: 05-27-2022 Telephone encounter Jared pennington MD Work Phone: NOC Comment on above: Follow Up (Gyant int eraction - F/U - attempt made. No answer.) Start: 05-17-2022 End: 05-17-2022 Patient encounter procedure Josiah Barnes MD Work Phone: Otolaryngology Comment on above: Acute bacterial sial adenitis (Primary Dx); Bashir's, angina Start: 05-14-2022 End: 05-14-2022 Patient encounter procedure Jared Velazquez PA-C Work Phone: [facility] Comment on above: Salivary gland swell ing (Primary Dx) Start: 03-07-2020 End: 03-07-2020 Subsequent hospital visit by physician Jayla Mcmahan Work Phone: [facility] Comment on above: S/P surgical amputat ion of finger, right (Primary Dx); Finger osteomyelitis, right (HCC) Start: 03-06-2020 End: 03-06-2020 Subsequent hospital visit by physician Jayla Mcmahan Work Phone: [facility] Start: 02-08-2020 End: 02-08-2020 Emergency department patient visit Maryuri King [facility] ED Comment on above: Felon of finger (Alice winifred Dx) Procedures Date Procedure Procedure Detail Performing Clinician Start: 03-15-2025 Follow-up visit RED HENDERSON Start: 12-24-2024 Follow-up visit RED HENDERSON Start: 12-13-2024 Dup-scan lxtr art/ar tl bpgs uni/lmtd study Kristyn Blankenship MD Work Phone: Start: 12-05-2024 Follow-up visit Follow-up DONNA BLANKENSHIP Start: 11-22-2024 FL GUIDANCE OR USE O NLY - NON-RESULTABLE Kristyn Blankenship MD Work Phone: Start: 11-05-2024 Follow-up visit RED HENDERSON Start: 10-01-2024 Ophthalmic ultrasoun d dx b-scan w/wo a-scan Savana Lopez MD Work Phone: Start: 09-03-2024 Urine culture Megan EVERETT Start: 08-22-2024 Follow-up visit RED HENDERSON Start: 08-16-2024 Glucose quantitative blood xcpt reagent [...] Basic metabolic pane l calcium total Shivani Wing FELIZ Work Phone: Start: 08-03-2024 Basic metabolic pane l calcium ionized Mraiana King DO Work Phone: Start: 08-03-2024 Ct abdomen & pelvis w/o contrast material Mariana Eduardo DO Work Phone: Start: 08-03-2024 Radiologic exam [...] [Units/v olume] in Serum or Plasma Wm Mudrakola DO Work Phone: Start: 05-22-2024 Follow-up visit RED HENDERSON Start: 05-21-2024 Prothrombin time Histor horacio Haywood MD Work Phone: Start: 05-14-2024 Echo tthrc r-t 2d w/wom-mode compl spec&colr d Jared Evans MD Work Phone: Start: 05-09-2024 Prothrombin time Histor horacio Haywood MD Work Phone: Start: 05-01-2024 Prothrombin time Histor horacio Haywood MD Work Phone: Start: 04-25-2024 Follow-up visit RED HENDERSON Start: 04-19-2024 Prothrombin time Histor horacio Haywood [...] MD Work Phone: Start: 04-06-2024 Antibody screen RED HENDERSON Comment on above: Performed By: #### L [id number] ####Cannon Pinion Adjuster: VELMA VALADEZ ([id number])[facility] BLOOD [facility] ([address] Start: 04-06-2024 Blood typing serologic abo [...] abdl aorta&bi il iofem w/contrast&postp Bernie Cutler [employer] Work Phone: Start: 04-03-2024 Ct head/brain w/o co ntrast material Bernie Cutler [employer] Work Phone: Start: 04-03-2024 Comprehensive metabo lic panel Bernie Cutler [employer] Work Phone: Start: 04-03-2024 Ecg routine ecg w/le ast 12 lds trcg only w/o i&r Bernie Cutler [employer] Work Phone: Start: 06-15-2023 Mri lower extrem oth /thn jt w/o & w/contr matr Jared Evans MD Work Phone: Start: 05-24-2023 Dup-scan xtr veins unilateral/limited study Jared Evans MD Work Phone: Start: 06-21-2022 Antibody screen BERNIE BIRD Comment on above: Order Comment: Speci men Type: BLOOD SPECIMEN Ordering Facility: [facility] Address: [address] [place], [place] [id number] Performed By: #### T SCR #### [facility] CLIA [id number] [address] [place] [address] [facility] Start: 03-07-2020 OPERATIVE REPORT 3m Sca nning Start: 02-08-2020 INCISION AND DRAINAGE Tiffanie Mora Work Phone: Plan of Treatment Date Care Activity Detail Author Start: 02-15-2029 DTaP/Tdap/Td vaccine (2 - Td) DTaP/Tdap/Td vaccine (2 - Td) [place] Start: 02-15-2029 DTaP/Tdap/Td Vaccines (2 - Td or Tdap) DTaP/Tdap/Td Vaccines (2 - Td or Tdap) [facility] Start: 02-15-2029 Urine microalbumin profile DTaP,Tdap,Td Vaccine (2 - Td or Tdap) [facility] Start: 08-05-2027 Diabetes Screening Diabetes Screening [facility] Start: 07-07-2027 Diabetes Screening Diabetes Screening [facility] Start: 07-06-2027 Diabetes Screening Diabetes Screening [facility] Start: 06-21-2027 Diabetes Screening Diabetes Screening [facility] Start: 08-16-2025 End: 01-23-2026 OCT MACULA CIRRUS OD (RIGHT EYE) OCT MACULA CIRRUS OD (RIGHT EYE) OPHT Imaging Routine Postoperative eye state 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, right eye Subluxation of right lens Expected: 08/16/2025, Expires: 01/23/2026 [facility] Work Phone: Comment on above: Expected: 08/16/2025, Expires: Start: 08-05-2025 Diabetes: Estimated Glomerular Filtration Rate for Kidney Health Diabetes: Estimated Glomerular Filtration Rate for [facility] Start: 08-04-2025 Diabetes: Estimated Glomerular Filtration Rate for Kidney Health Diabetes: Estimated Glomerular Filtration Rate for Kidney Health [facility] Start: 07-31-2025 End: 01-07-2026 Right eye Photo documentation FUNDUS PHOTOS OD (RIGHT EYE) OPHT Imaging Routine Postoperative eye state 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, right eye Subluxation of right lens Expected: 07/31/2025, Expires: 01/07/2026 [facility] Work Phone: Comment on above: Expected: 07/31/2025, Expires: Start: 07-07-2025 Diabetes: Estimated Glomerular Filtration Rate for [facility]ney Health Diabetes: Estimated Glomerular Filtration Rate for [facility] Health [facility] Start: 06-24-2025 DIABETES SCREEN DIABETES SCREEN [facility] Start: 06-10-2025 Thyroid stimulating hormone measurement TSH Level [facility] Start: 05-18-2025 DIABETES SCREEN DIABETES SCREEN [facility] Start: 03-18-2025 Influenza vaccination [facility] Start: 03-15-2025 End: 03-15-2025 Patient encounter procedure 03/15/2025 11:15 AM EDT Office Visit [facility] [address] [facility] [address] [place] [id number] Andre Patel MD [address] [place] [address] [facility] [place] Start: 01-02-2025 End: 01-02-2025 Patient encounter procedure 01/02/2025 9:45 AM EDT Office Visit [facility]mology [address] [place] [address] Savana Lopez MD [address] [place] [address] *3 M, DFE Ophthalmology Comment on above: *3 M, DFE Start: 12-24-2024 End: 12-24-2024 Patient encounter procedure 12/24/2024 2:30 PM EDT Office Visit [facility] [address] [place] [address] Kristyn Blankenship MD [address] [place] [address] [facility] [place] Start: 12-05-2024 End: 12-05-2024 Patient encounter procedure 12/05/2024 10:00 AM EDT Office Visit [facility] [place] [address] [place] [phone] Kristyn Blankenship MD [address] [place] [address] [facility] [place] Start: 11-22-2024 End: 11-22-2024 Admission to same day surgery center 11/22/2024 9:30 AM EDT - 11/22/2024 11:30 AM EDT Surgery [facility] MAIN OR [address] [facility] [place] [phone] Kristyn Blankenship MD [address] [place] [address] AORTOILIAC ANGIOGRAPHY, RIGHT LOWER EXTREMITY ANGIOGRAPHY WITH RUNOFF, POSSIBLE SUPERFICIAL FEMORAL ARTERY/POPLITEAL/TIBIAL ANGIOPLASTY/STENTING [14512 (CPT )] [facility] MAIN OR Comment on above: AORTOILIAC ANGIOGRAPHY, RIGHT LOWER EXTR EMITY ANGIOGRAPHY WITH RUNOFF, POSSIBLE SUPERFICIAL FEMORAL ARTERY/POPLITEAL/TIBIAL ANGIOPLASTY/STENTING [16984 (CPT )] Start: 11-22-2024 End: 11-22-2024 Angiography extremity unilateral rs&i ANGIOGRAM, EXTREMITY Skin ulcer of right great toe (HCC) Critical limb ischemia of right lower extremity (HCC) 11/22/2024 9:30 AM EDT [facility] Operating Room Start: 11-22-2024 Subsequent hospital visit by physician 11/22/2024 9:30 AM EDT Hospital Encounter [facility] MAIN OR [address] [place] [phone] Kristyn Blankenship MD [address] [place] [address] [facility] MA[facility] OR Start: 11-20-2024 Subsequent hospital visit by physician 11/20/2024 Hospital Encounter [facility] MA[facility] OR [address] [place] [phone] Kristyn Blankenship MD [address] [place], [place] [phone] [facility] MA[facility] OR Start: 11-13-2024 End: 11-13-2025 Basic metabolic 1998 panel - Serum or Plasma Basic metabolic panel Lab Routine Pre-op evaluation Expected: 11/13/2024 (Approximate), Expires: 11/13/2025 [facility] Comment on above: Expected: 11/13/2024 (Approximate), Expi res: 11/13/2025 Start: 11-13-2024 End: 11-13-2025 CBC W Auto Differential panel - Blood CBC auto differential Lab Routine Pre-op evaluation Expected: 11/13/2024 (Approximate), Expires: 11/13/2025 [facility] Work Phone: Comment on above: Expected: 11/13/2024 (Approximate), Expi res: 11/13/2025 Start: 10-01-2024 End: 10-01-2024 Patient encounter procedure 10/01/2024 10:30 AM EDT Office Visit [facility] [address] [address] Savana Lopez MD [address] [place] [address] 26 Day F/U ~ DFE OD bscan OD . Ophthalmology Comment on above: 26 Day F/U ~ DFE OD bscan OD . Start: 08-22-2024 End: 08-22-2024 Patient encounter procedure 08/22/2024 10:30 AM EST Office Visit [facility] [place] [address] [place] [address] Henok Lantigua PA-C [address] [place], [place] [phone] [facility] [place] Start: 08-15-2024 End: 08-15-2024 Patient encounter procedure 08/15/2024 9:45 AM EST Office Visit [facility] [address] [place], [place] [phone] Savana Lopez MD [address] [place] [address] *1 month post op Ophthalmology Comment on above: *1 month post op Start: 08-06-2024 End: 08-06-2024 Patient encounter procedure 08/06/2024 11:00 AM EST Office Visit [facility] [place] [address] [place] [phone] Henok Lantigua PA-C [address] [place], [place] [phone] [facility] [place] Start: 08-01-2024 End: 08-01-2024 Patient encounter procedure Ophthalmology Comment on above: *1 week post op Start: 07-31-2024 End: 07-31-2024 Patient encounter procedure [facility] Surgery [facility] Start: 07-27-2024 End: 07-27-2024 Admission to same day surgery center 07/27/2024 10:50 AM EST - 07/27/2024 12:40 PM EST Surgery Ophthalmology [address] [address] Savana Lopez MD [address] [place] [address] VITRECTOMY 25G [facility] PARS PLANA APPROACH W/ REMOVAL OF PRERETINAL CELLULAR MEMBRANE Ophthalmology Comment on above: VITRECTOMY 25G [facility] PARS PLANA APPROACH W/ REMOVAL OF PRERETINAL CELLULAR MEMBRANE Start: 07-27-2024 End: 07-27-2024 Aspiration/release vitreous subretinal/choroidal RELEASE OF VITREOUS, CHOROIDAL FLUID, PARS PLANA APPROACH Hemorrhagic choroidal detachment of right eye 07/27/2024 10:50 AM EST [facility] Start: 07-27-2024 Subsequent hospital visit by physician 07/27/2024 10:50 AM EST Hospital Encounter Ophthalmology [address] [address] Savana Lopez MD [address] [place] [address] 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] Ophthalmology Comment on above: Hemorrhagic choroidal detachment of righ t eye [H31.411] Start: 07-27-2024 End: 07-27-2024 Vitrectomy pars plana remove preretinal membrane VITRECTOMY 25G [facility] PARS PLANA APPROACH W/ REMOVAL OF PRERETINAL CELLULAR MEMBRANE Hemorrhagic choroidal detachment of right eye 07/27/2024 10:50 AM EST [facility] Start: 07-23-2024 End: 07-23-2024 Patient encounter procedure 07/23/2024 10:45 AM EST Office Visit [facility] Op[facility]mology [address] [address] Savana Lopez MD [address] [place] [address] *1 W, DFE OD/BSCAN OD/OPTOS OD Ophthalmology Comment on above: *1 W, DFE OD/BSCAN OD/OPTOS OD Start: 07-18-2024 Advance Directive Discussion Advance Directive Discussion [facility] Start: 07-18-2024 Medicare Advantage Annual Wellness Visit Medicare Advantage Annual Wellness Visit [facility] Start: 07-16-2024 End: 07-16-2024 Patient encounter procedure Ophthalmology Comment on above: Please schedule this patient with Dr. Steffen grey Tuesday07/16/24. Ok to over book per Dr. Lopez *NEW, HEMORRHAGIC CH OROIDALS/MONOCULAR, DFE OD/g SCAN OD ok per DM Start: 07-13-2024 End: 07-13-2024 Aspiration/release vitreous subretinal/choroidal ASPIRATION VITREOUS, CHOROIDAL FLUID, PARS PLANA APPROACH Hemorrhagic choroidal detachment of right eye 07/13/2024 2:04 PM EST [facility] Start: 07-13-2024 End: 07-13-2024 Evaluation and management of inpatient 07/13/2024 2:04 PM EST - 07/13/2024 3:24 PM EST Surgery Ophthalmology [address] [address] Savana Lopez MD [address] [place] [address] ASPIRATION VITREOUS, CHOROIDAL FLUID, PARS PLANA APPROACH Ophthalmology Comment on above: ASPIRATION VITREOUS, CHOROIDAL FLUID, PA RS PLANA APPROACH Start: 06-04-2024 End: 05-21-2025 POCT Prothrombin Time INR ([facility]) POCT Prothrombin Time INR ([facility]) Lab Routine Atrial fibrillation, unspecified type (HCC) Acute venous embolism and thrombosis of deep vessels of proximal end of right lower extremity (HCC) Expected: 06/04/2024, Expires: 05/21/2025 [facility] Work Phone: Comment on above: Expected: 06/04/2024, Expires: Start: 06-04-2024 End: 06-04-2024 Anticoagulant drug monitoring 06/04/2024 1:15 AM EST Anticoagulation - Warfarin Visit [facility] [address] [place] [address] [facility] Start: 05-22-2024 End: 05-22-2024 Patient encounter procedure 05/22/2024 3:00 PM EST Office Visit [facility] [place] [address] [facility] [place] [address] [place] [phone] Hermila Padilla MD [address] [facility] [place] [address] [place], [place] [phone] [facility] [place] Start: 05-22-2024 End: 05-22-2024 Anticoagulant drug monitoring 05/22/2024 12:45 AM EST Anticoagulation - Warfarin Visit [facility] [address] [place] [address] [facility] Start: 05-14-2024 End: 05-14-2024 Patient encounter procedure 05/14/2024 2:00 PM EDT Appointment [facility] Non-Invasive Cardiology [address] [place] [phone] [facility] Non-Invasive Cardiology Start: 05-08-2024 End: 05-01-2025 POCT Prothrombin Time INR ([facility]) POCT Prothrombin Time INR ([facility]) Lab Routine Atrial fibrillation, unspecified type (HCC) Acute venous embolism and thrombosis of deep vessels of proximal end of right lower extremity (HCC) Expected: 05/08/2024 (Approximate), Expires: 05/01/2025 [facility] Work Phone: Comment on above: Expected: 05/08/2024 (Approximate), Expi res: 05/01/2025 Start: 05-08-2024 End: 05-08-2024 Anticoagulant drug monitoring 05/08/2024 1:30 AM EDT Anticoagulation - Other Visit [facility] [address] [place] [address] [facility] Start: 05-01-2024 End: 05-01-2024 Anticoagulant drug monitoring 05/01/2024 Anticoagulation - Warfarin Visit [facility] [address] [address] [facility] Start: 04-23-2024 End: 04-19-2025 POCT Prothrombin Time INR ([facility]) POCT Prothrombin Time INR ([facility]) Lab Routine Atrial fibrillation, unspecified type (HCC) Acute venous embolism and thrombosis of deep vessels of proximal end of right lower extremity (HCC) Expected: 04/23/2024 (Approximate), Expires: 04/19/2025 [facility] Work Phone: Comment on above: Expected: 04/23/2024 (Approximate), Expi res: 04/19/2025 Start: 04-23-2024 End: 04-23-2024 Patient encounter procedure 04/23/2024 9:15 AM EDT Office Visit [facility] [place] [address] [place] [phone] Henok Hernandez PA-C [address] [place], [place] [phone] [facility] [place] Start: 04-23-2024 End: 04-23-2024 Anticoagulant drug monitoring 04/23/2024 1:15 AM EDT Anticoagulation - Warfarin Visit [facility] [address] [place] [address] [facility] Start: 04-19-2024 End: 04-19-2024 Anticoagulant drug monitoring 04/19/2024 1:00 AM EDT Anticoagulation - Warfarin Visit [facility] [address] [place] [phone] [facility] Start: 04-16-2024 End: 04-16-2025 POCT Prothrombin Time INR ([facility]) POCT Prothrombin Time INR ([facility]) Lab Routine Deep vein thrombosis (DVT) of lower extremity, unspecified chronicity, unspecified laterality, unspecified vein (HCC) Expected: 04/16/2024, Expires: 04/16/2025 [facility] Work Phone: Comment on above: Expected: 04/16/2024, Expires: Start: 03-18-2024 Covid-19 Vaccine () Covid-19 Vaccine () [facility] Start: 03-18-2024 Influenza vaccination Influenza Vaccine (#1) [facility] Start: 07-18-2023 Advance Directive Discussion Advance Directive Discussion [facility] Start: 07-18-2023 Medicare Advantage Annual Wellness Visit Medicare Advantage Annual Wellness Visit [facility] Start: 03-18-2023 Influenza vaccination Influenza Vaccine (#1) [facility] Start: 03-18-2022 Influenza vaccination INFLUENZA (#1) [facility] Start: 07-18-2021 ADVANCE DIRECTIVE DISCUSSION ADVANCE DIRECTIVE DISCUSSION [facility] Start: 07-18-2021 DEPRESSION ASSESSMENT DEPRESSION ASSESSMENT [facility] Start: 03-18-2020 Influenza vaccination Flu vaccine (#1) [facility] [place] Start: 03-13-2020 End: 03-13-2020 Office Visit 03/13/2020 Office Visit Orthopedic Surgery Jayla Mcmahan MD [address] [facility] [place] [address] [place], [place] [phone] [facility] Medical [facility] [place] Start: 03-07-2020 Hospital Encounter 03/07/2020 Hospital Encounter IP Unit Jayla Mcmahan MD [address] [facility] [place] [address] [place], [place] [phone] [facility] Dept Start: 03-06-2020 Annual Wellness Visit (AWV) Annual Wellness Visit (AWV) [place] Start: 04-12-2019 Pneumococcal Vaccine: 50+ Years (2 of 2 - PPSV23) Pneumococcal Vaccine: 50+ Years (2 of 2 - PPSV23) [facility] Start: 04-12-2019 Pneumococcal Vaccine: 65+ Years (2 - PPSV23 if available, else PCV20) Pneumococcal Vaccine: 65+ Years (2 - PPSV23 if available, else PCV20) [facility] Start: 04-12-2019 Pneumococcal Vaccine: 65+ Years (2 - PPSV23 or PCV20) Pneumococcal Vaccine: 65+ Years (2 - PPSV23 or PCV20) [facility] Start: 04-12-2019 Pneumococcal Vaccine: 65+ Years (2 of 2 - PPSV23 or PCV20) Pneumococcal Vaccine: 65+ Years (2 of 2 - PPSV23 or PCV20) [facility] Start: 02-13-2016 DIABETES SCREEN DIABETES SCREEN [facility] Start: 09-24-2014 RSV Immunization for Adults (1 - 1-dose 75+ series) RSV Immunization for Adults (1 - 1-dose 75+ series) [facility] Start: 04-23-2010 DIABETES SCREEN DIABETES SCREEN [facility] Start: 09-24-2004 BONE DENSITY BONE DENSITY [facility] Start: 09-24-2004 Pneumococcal 65+ years Vaccine (2 of 2 - PPSV23) Pneumococcal 65+ years Vaccine (2 of 2 - PPSV23) [place] Start: 09-24-2004 PNEUMOCOCCAL: 65+ (1 - PCV) PNEUMOCOCCAL: 65+ (1 - PCV) [facility] Start: 09-24-2004 Screening for osteoporosis Bone Density Screening [facility] Start: 1999 RSV Immunization aged 60 or older (1 - 1-dose 60+ series) RSV Immunization aged 60 or older (1 - 1-dose 60+ series) [facility] Start: 09-24-1994 Screening for osteoporosis DEXA (modify frequency per FRAX score) [place] Start: 09-24-1989 Shingles Vaccine (1 of 2) Shingles Vaccine (1 of 2) [place] Start: 09-24-1989 SHINGRIX VACCINE (1 of 2) SHINGRIX VACCINE (1 of 2) [facility] Start: 09-24-1989 Zoster Vaccines (1 of 2) Zoster Vaccines (1 of 2) [facility] Start: 09-24-1958 Urine microalbumin profile DTAP,TDAP,TD (1 - Tdap) [facility] Start: 09-24-1958 Zoster Vaccines (1 of 2) Zoster Vaccines (1 of 2) [facility] Start: 09-24-1957 Anxiety Screening Anxiety Screening [facility] Start: 09-24-1957 Depression Screening Depression Screening [facility] Start: 09-24-1957 Diabetes: Urine Albumin-Creatinine Ratio for Kidney Health Diabetes: Urine Albumin-Creatinine Ratio for Kidney Health [facility] Start: 09-24-1957 SPIROMETRY SPIROMETRY [facility] Start: 1951 Depression Monitoring Depression Monitoring [facility] Start: 1951 Depresssion Monitoring Depresssion Monitoring [facility] Start: 09-24-1945 PNEUMOCOCCAL: 65+ (1 - PCV) PNEUMOCOCCAL: 65+ (1 - PCV) [facility] Start: 09-24-1944 COVID-19 Vaccine (#1) COVID-19 Vaccine (#1) [facility] Start: 03-27-1940 COVID-19 VACCINE (#1) COVID-19 VACCINE (#1) [facility] Start: 1939 Creatinine measurement Creatinine monitoring [employer] [place] Start: 1939 Lipid panel Lipid Panel [facility] Start: 1939 Medicare Advantage Annual Wellness Visit (AWV) Medicare Advantage Annual Wellness Visit (AWV) [facility] Start: 1939 Potassium monitoring Potassium monitoring [facility] [place] [place] Start: 1939 Screening for osteoporosis Bone Density Scan [facility] Start: 1939 Thyroid stimulating hormone measurement TSH Level [facility] Angiography extremit y unilateral rs&i AORTOGRAM, WITH SERIALOGRAPHY Critical limb ischemia of right lower extremity (HCC) [facility] Operating Room Aortography abdomina l serialography rs&i AORTOGRAM, WITH SERIALOGRAPHY Critical limb ischemia of right lower extremity (HCC) [facility] Operating Room BSCAN OD (RIGHT EYE) BSCAN OD (R IGHT EYE) [facility] Imaging Routine Hemorrhagic choroidal detachment of right eye 07/09/2024 9:09 AM [facility] Work Phone: End: 01-03-2026 BSCAN OD (RIGHT EYE) BSCAN OD (RIGHT EYE) [facility] Imaging Routine Hemorrhagic choroidal detachment of right eye Dislocation of intraocular lens, initial encounter 1 Occurrences starting 07/12/2024 until 01/03/2026 [facility] Work Phone: Comment on above: 1 Occurrences starting 07/12/2024 until 01/03/2026 End: 01-07-2026 BSCAN OD (RIGHT EYE) BSCAN OD (RIGHT EYE) [facility] Imaging Routine Postoperative eye state 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, right eye Subluxation of right lens 1 Occurrences starting 07/16/2024 until 01/07/2026 [facility] Comment on above: 1 Occurrences starting 07/16/2024 until 01/07/2026 End: 02-27-2026 BSCAN OD (RIGHT EYE) BSCAN OD (RIGHT EYE) [facility] Imaging Routine Postoperative eye state 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, right eye Subluxation of right lens 1 Occurrences starting 09/05/2024 until 02/27/2026 [facility] Work Phone: Comment on above: 1 Occurrences starting 09/05/2024 until 02/27/2026 Camera fundoscopy FUNDUS PHOTOS OU (BOTH EYES) [facility] Imaging Routine Hemorrhagic choroidal detachment of right eye 07/09/2024 8:35 AM [facility] End: 03-08-2023 CT Neck W contrast IV [facility] Work Phone: Comment on above: Once for 1 Occurrences starting 03/08/20 until 03/08/2023 Incision/Drainage Incision/Drain age Procedures Routine 02/08/2020 7:17 PM EDT [facility] [place], [place] OUTSIDE PROCEDURE SCAN OUTSIDE P [...] OUTSIDE P ROCEDURE SCAN Procedures Ordered: 06/14/2023 [facility] Comment on above: Ordered: 06/14/2023 Oxygen therapy [Minimum Data Set] Initiate Oxygen Therapy Protocol Respiratory Care Routine Daily until discontinued starting 03/07/2020 [facility] [place] Comment on above: Daily until discontinued starting 2019 End: 02-22-2023 US Head and neck soft tissue [facility] Work Phone: Comment on above: Once for 1 Occurrences starting 02/23/20 until 02/22/2023 End: 03-06-2020 XR FINGER RIGHT (MIN 2 VIEWS) XR FINGER RIGHT (MIN 2 VIEWS) Imaging Routine Once for 1 Occurrences starting 03/06/2020 until 03/06/2020 [facility] [place] Comment on above: Once for 1 Occurrences starting 03/06/20 until 03/06/2020 XR FINGER RIGHT (MIN 2 VIEWS) XR FINGER RIGHT (MIN 2 VIEWS) Imaging Routine 03/06/2020 10:20 AM EDT [facility] Immunization Date Immunization Notes Care Provider [facility] 05-19-2021 Influenza, High-dose Seasonal, Quadrivalent, Preservative Free Ming Weinberg MD Work Phone: [employer] 05-19-2021 influenza virus vaccine, unspecified formulation Jared Evans MD Work Phone: [facility] 02-15-2019 pneumococcal conjuga te vaccine, 13 valent Ming Weinberg MD Work Phone: [employer] 02-15-2019 tetanus toxoid, redu larissa diphtheria toxoid, and acellular pertussis vaccine, adsorbed Ming Weinberg MD Work Phone: [employer] 06-29-2013 influenza, high dose seasonal, preservative-free Ming Weinberg MD Work Phone: [employer] NEGATED: Highlighted row has not occurred!04-05-2024 Seasonal trivalent influenza vaccine, adjuvanted, preservative free Winifred Cornell DO Work Phone: [employer] Comment on above: Deferred: Patient Re fused Payers Date Payer Category Payer Self-pay 2023 Private Health Insurance HUMANA HUMANA MEDICARE SUPPLEMENT [id number] 2023-[address] [place] [id number] Commercial [id number] 2017 Medicare [id number] 2017 Medicare (Managed Care) HU[employer]NA M EDMIKERE [id number] 2017 Medicare O HUMANA MEDICARE [id number] 2017 Medicare [id number]. [id number] 1939 Unknown [id number] 2.16.840.1.205762.3.579. 2.594 Unknown [id number]. 1.13.159. 2.7.3.253626.315 Unknown [id number] Unknown [id number] 2.16.840.1.011394.3.579. 2.462 Unknown [id number] 2.16840.1.726619.3.579. 2.462 Unknown [id number] 2.16.840.1.250686.3.579. 2.462 Unknown [id number] 2.16.840.1.584568.3.579. 2.462 Unknown [id number] 2.16840.1.561003.3.579. 2.462 Unknown [id number] 2.840.1.600194.3.579. 2.462 Unknown [id number] 2.840.1.394488.3.579. 2.462 Unknown [id number] 2.840.1.516533.3.579. 2.462 Unknown [id number] 2.840.1.652444.3.579. 2.462 Unknown [id number] 2.840.1.811882.3.579. 2.462 Unknown [id number] 2.840.1.083912.3.579. 2.462 Unknown [id number] 2.840.1.789853.3.579. 2.462 Unknown [id number] 2.840.1.009289.3.579. 2.462 Unknown [id number] 2.16840.1.829854.3.579. 2.462 Unknown [id number] 2.16840.1.877233.3.579. 2.462 Unknown [id number] 2.16840.1.791756.3.579. 2.462 Unknown [id number] 2.16.840.1.634674.3.579. 2.462 Unknown [id number] 2.16.840.1.595245.3.579. 2.462 Unknown [id number] 2.16.840.1.857335.3.579. 2.462 Unknown [id number] 2.16.840.1.123991.3.579. 2.462 Unknown [id number] 2.16.840.1.095898.3.579. 2.462 Unknown [id number] 2.16.840.1.029595.3.579. 2.462 Unknown [id number] 2.16.840.1.240164.3.579. 2.462 Unknown [id number] 2.16.840.1.202790.3.579. 2.462 Unknown [id number] 2.16.840.1.794276.3.579. 2.462 Social History Date Type Detail Facility Start: 02-08-2020 Tobacco smoking stat [facility] Current some day smoker [place] Start: 02-08-2020 End: 04-20-2024 Alcohol intake Current drinker of alcohol (finding) [place] Start: 02-08-2020 End: 05-22-2024 Alcohol Comment occ [place], [place] Start: 1940 Sex Assigned At Not on file M [place] Start: 05-04-2022 End: 03-08-2023 Exposure to SARS-CoV-2 (event) Not sure [place] Start: 03-06-2020 End: 04-25-2024 Tobacco smoking status NHIS Former smoker [place] Start: 03-06-2020 End: 04-25-2024 Tobacco use and exposure Never used [place] Tobacco smoking stat [facility] Tobacco smoking consumption unknown [facility] Start: 05-17-2022 End: 04-04-2024 Tobacco smoking status NHIS Smokes tobacco daily [facility] History of tobacco use Cigarette Smoker [facility] Start: 05-17-2022 End: 08-11-2024 Cigarettes smoked current (pack per day) - Reported 0.5 [facility] Start: 05-18-2022 History SDOH Financial 5 [facility] Start: 05-18-2022 History SDOH Food Worry 1 [facility] Start: 05-18-2022 History SDOH Transpo rt Med 2 [facility] Start: 07-05-2022 End: 03-15-2025 Alcohol intake Ex-drinker (finding) [facility] History of tobacco use Current smoker [facility] Start: 07-27-2023 End: 08-11-2024 Gender identity Not on file [facility] How often do you nee d to have someone help you when you read instructions, pamphlets, or other written material from your doctor or pharmacy [SILS] Never [facility] Has the [employer], [employer], or water [employer] threatened to shut off services in your home in past 12Mo No [facility] Are you now , , , , never or living with a partner? [facility] How often to you hav e a drink containing alcohol? Monthly or less [facility] How often do you hav e 6 or more drinks on 1 occasion? Never [facility] How hard is it for y ou to pay for the very basics like food, housing, medical care, and heating Not very hard [facility] Do you feel stress - tense, restless, nervous, or anxious, or unable to sleep at night because your mind is troubled all the time - these days [OSQ] Not at all [facility] (I/We) worried wheth er (my/our) food would run out before (I/we) got money to buy more. Never true [facility] Start: 02-15-2022 End: 10-25-2024 Sex Female (finding) [facility] Start: 1940 Sex assigned at Female [facility] Start: 08-03-2024 Gender identity Identifies as female gender (finding) [facility] Start: 08-03-2024 Sexual orientation Heterosexual (everardo martin) [facility] NEGATED: Highlighted rowStart: NINF History of tobacco use Passive smoker [facility] Medical Equipment Procedure Code Equipment Code Equipment Origin al Text Equipment Identifier Dates Gas Ispan Constellation Intraocular Vision System [id number] - [id number] Start: 07-27-2024 [facility] 6x40x [facility] [id number] Start: 11-22-2024 Stent Oliva [id number] 25 6f [facility] - [facility] - [id number] Start: 11-22-2024 Functional Status Date Assessment Result Facility 07-18-2024 Are you deaf, or do you have serious difficulty hearing No 07/18/2024 12:17 PM Jaci Umana, RADHA No [facility] 07-18-2024 Are you blind, or do you have serious difficulty seeing, even when wearing glasses Yes 07/18/2024 12:17 PM Jaci Umana, RADHA Yes [facility] 07-18-2024 Do you have serious difficulty walking or climbing stairs Yes 07/18/2024 12:17 PM Jaci Umana, RADHA Yes [facility] 07-18-2024 Do you have difficul ty dressing or bathing Yes 07/18/2024 12:17 PM Jaci Umana, RADHA Yes [facility] 07-18-2024 Because of a physica l, mental, or emotional condition, do you have difficulty doing errands alone such as visiting a physician's office or shopping Yes 07/18/2024 12:17 PM Jaci Umana, RADHA Yes [facility] Mental Status Date Assessment Result Facility 07-18-2024 Because of a physica l, mental, or emotional condition, do you have serious difficulty concentrating, remembering, or making decisions No 07/18/2024 12:17 PM Jaci Umana, RADHA No [facility] Clinical Notes 05-14-2022 to 03-15-2025 Andre Berry MD - 03/15/2025 11:15 AM Savana Triana MD - 01/02/2025 9:45 AM Cindy Blankenship MD - 12/24/2024 2:30 PM Cindy Blankenship MD - 12/05/2024 10:00 AM EDTDisradharge Instructions Note Date & Type Note Facility 03-15-2025 History of Present illness Narrative Images from the original note were not included. Andre Patel MD [facility] Hematology/Oncology - [facility] [address] [facility] [id number] Dept: [phone] Dept PROBLEM LIST: 1. Recurrent DVT: Initially diagnosed with DVT in 2021 requiring IVC filter placement - April 04, 2024 lower extremity duplex = extensive acute DVT in the right lower extremity Determined during the 2023 admission to be an Eliquis failure and recommended Coumadin going forward ASSESSMENT AND PLAN: Mel Pop is a 84 y.o. female here for VTE 1. Recurrent DVT: I have reviewed the entire case including the past history of Eliquis failure. - My recommendation continues to be Coumadin (managed via her SNF / care facility) - Follow-up as needed On this date, 03/15/25 , I have spent 30 minutes preparing to see the patient, reviewing previous notes and test results, completing clinical documentation as well as with [id number] patient care, performing a medically appropriate examination, counseling / educating the patient/family/caregiver, and ordering medications, tests, or procedures. HPI: Mel Pop is a 84 y.o. female who presents here today with VTE Pt w/ history of severe atherosclerosis, COPD, former smoker, diverticulosis, afib, hypertension, and GERD who presented to [facility] for right lower extremity pain. Reports after [...] trifurcation vessels. Vascular surgery recommended transfer to [facility]. PVR and BLE US results pending however prelim revealed an acute extensive DVT in the right lower extremity from the external iliac to peroneal vein. 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 ? Hematology consulted for acute DVT while on Eliquis. She also has a history of DVT in 2021 and an IVC filter documented on imaging. Per documentation, it was felt from my initial consultation that no significant amount of Eliquis doses were missed. Per my note this was classified as an Eliquis failure and the recommendation was to transition to Coumadin. Here today w/ Lavelle (social worker psychiatric from [facility]) as well as DIL , Fidel Pt reports arterial stent placed in RLE. She was put on plavix / asiprin in addition to coumadin. Just recently the plavix was stopped. She complaints of R heel sore and LLE discomvfort. Medical History[1] Surgical History[2] Current Medications[3] Scheduled Meds[4] Continuous Meds[5] PRN Meds[6] Social History Socioeconomic History Marital status: Spouse name: Not on file Number of children: Not on file Years of education: Not on file Highest education level: Not on file Occupational History Not on file Tobacco Use Smoking status: Former Current packs/day: 0.50 Types: Cigarettes Smokeless tobacco: Never Vaping Use Vaping status: Never Used Substance and Sexual Activity Alcohol use: Not Currently Alcohol/week: 1.0 standard drink of alcohol Types: 1 Cans of beer per week Comment: occ Drug use: Never Sexual activity: Not on file Other Topics Concern Not on file Social History Narrative Not on file Social Drivers of Health Financial Resource Strain: Low Risk (06/20/2024) Received from [facility] Medical Overall Financial Resource Strain [...] min Stress: Patient Unable To Answer (08/03/2024) [place] [employer] - Occupational Stress Questionnaire Feeling of Stress : Patient unable to answer Social Connections: Unknown (08/03/2024) Social Connection and Isolation Panel [NHANES] Frequency of Communication with Friends and Family: Patient unable to answer Frequency of Social Gatherings with Friends and Family: Patient unable to answer Attends Catholic Services: Patient unable to answer Active Member of Clubs or Organizations: Patient unable to answer Attends Club or Organization Meetings: Never Marital Status: Patient unable to answer Recent Concern: Social Connections - Moderately Isolated (06/20/2024) Received from [facility] Medical Social Connection and Isolation Panel [NHANES] Frequency of Communication with Friends and Family: More than three times a week Frequency of Social Gatherings with Friends and Family: Once a week Attends Catholic Services: More than 4 times per year [...] Homeless in the Last Year: No Family History[7] Allergies[8] Reviewed medications, allergies, past medical history, social history, family history as above. PHYSICAL EXAM: BP (!) 97/48 Pulse (!) 45 Temp 36.3 C (97.4 F) (Temporal) Ht 1.6 m (5' 3") Wt 69.4 kg (153 lb) Comment: unable to stand for ht and wt today LMP (LMP Unknown) SpO2 100% BMI 27.10 kg/m CONSTITUTIONAL: see VS. No apparent distress. PYSCH: AAOx3. Mood and affect appropriate, patient interactive Labs Most recent labs reviewed Lab Results Component Value Date NA 139 08/05/2024 K 3.8 08/05/2024 CL 115 (H) 08/05/2024 CO2 17 (L) 08/05/2024 BUN 9 08/05/2024 CREATININE 0.91 08/05/2024 GLUCOSE 92 08/05/2024 CALCIUM 8.4 (L) 08/05/2024 PROT 5.5 (L) 08/05/2024 BILITOT 0.9 08/05/2024 ALKPHOS 72 08/05/2024 AST 21 08/05/2024 ALT 24 08/05/2024 Lab Results Component Value Date WBC 7.3 08/05/2024 HGB 10.3 (L) 08/05/2024 HCT 33.3 (L) 08/05/2024 MCV 84.1 08/05/2024 PLT 235 08/05/2024 LYMPHOPCT 15.6 08/05/2024 RBC 3.96 08/05/2024 MCH 26.0 08/05/2024 MCHC 30.9 08/05/2024 RDW 18.9 (H) 08/05/2024 Radiology reviewed: 06/16/2022 LE duplex MPRESSION: Positive study for acute proximal DVT in the left lower extremity involving all veins with essentially occlusive thrombus. Nondiagnostic study for calf DVT in the left lower extremity. Positive study for ?superficial thrombophlebitis in the imaged segments of the left lower extremity involving the visualized segments of the greater and small saphenous veins. 04/04/2024 LE duplex Acute extensive DVT in the right lower extremity as described below. The right common iliac vein was not visualized. No evidence of superficial thrombosis in the right lower extremity. 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 Deep venous insufficiency (>1.0 sec) noted in the left popliteal vein. No evidence of superficial thrombosis in the left lower extremity. ? Pathology Reviewed: Andre Patel MD Disclaimer: This note was dictated by speech recognition and may contain minor errors in flag car driver. [1] Past Medical History: Diagnosis Date Arrhythmia PAF Asthma Chronic kidney disease COPD (chronic obstructive pulmonary disease) ([facility]) DVT (deep venous thrombosis) ([facility]) Essential hypertension 03/07/2020 GERD (gastroesophageal reflux disease) Hiatal hernia IBS (irritable bowel syndrome) Pure hypercholesterolemia 03/07/2020 PVD (peripheral vascular disease) ([facility]) Stroke ([facility]) [2] Past Surgical History: Procedure Laterality Date ANKLE SURGERY ARM SURGERY (HISTORICAL) Right COLONOSCOPY ESOPHAGEAL DILATION EYE SURGERY Right 07/05/2024 [facility] EYE SURGERY Right 06/2024 x2, [facility] 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 HYSTERECTOMY ORTHOPEDIC SURGERY THROMBECTOMY Right 04/06/2024 RLE mechanical thrombectomy (Krzysztof) VASCULAR SURGERY Right 11/22/2024 AORTOILIAC ANGIOGRAPHY, RIGHT LOWER EXTREMITY ANGIOGRAPHY WITH RUNOFF, SUPERFICIAL FEMORAL ARTERY, POPLITEAL,TIBIAL ANGIOPLASTY and STENTING (Krzysztof) VASCULAR SURGERY Left 11/22/2024 Left femoral angiography (Krzysztof) [3] Current Outpatient Medications: acetaminophen (Tylenol) 325 MG tablet, Take 650 mg by mouth 4 times a day., Disp: , Rfl: amLODIPine (Norvasc) 5 MG tablet, Take 1 tablet (5 mg) by mouth daily., Disp: , Rfl: ammonium lactate (Amlactin) 12 % cream, Apply topically if needed for dry skin., Disp: , Rfl: ascorbic acid (Vitamin C) 500 MG tablet, Take 500 mg by mouth in the morning and 500 mg at noon and 500 mg in the evening., Disp: , Rfl: aspirin 81 MG EC tablet, Take 81 mg by mouth daily., Disp: , Rfl: atorvastatin (Lipitor) 80 MG tablet, Take 1 tablet (80 mg) by mouth daily., Disp: , Rfl: bisacodyl (Dulcolax) 10 MG suppository, Insert into the rectum Daily as needed for constipation., Disp: , Rfl: bisacodyl (Dulcolax) 5 MG EC tablet, Take 5 mg by mouth Daily as needed for constipation. Do not crush, chew, or split., Disp: , Rfl: Incruse Ellipta 62.5 MCG/ACT inhalation, Inhale 1 puff daily., Disp: , Rfl: lisinopril 40 MG tablet, Take 40 mg by mouth daily., Disp: , Rfl: magnesium hydroxide (Milk of Magnesia) 400 MG/5ML suspension, Take by mouth Nightly., Disp: , Rfl: metoprolol tartrate (Lopressor) 25 MG tablet, Take 25 mg by mouth in the morning and 25 mg in the evening. Take with meals. Take with food.., Disp: , Rfl: Multiple Vitamin (multivitamin) tablet, Take 1 tablet by mouth daily., Disp: , Rfl: ondansetron (Zofran) 4 MG tablet, Take by mouth., Disp: , Rfl: prednisoLONE acetate (Pred-Forte) 1 % ophthalmic suspension, Administer 1 drop into the right eye every 4 hours., Disp: , Rfl: warfarin (Coumadin) 3 MG tablet, 3.5 mg., Disp: , Rfl: apixaban (Eliquis) 5 MG tablet, Take 1 tablet (5 mg) by mouth 2 times daily. (Patient not taking: Reported on 03/15/2025), Disp: , Rfl: clopidogrel (Plavix) 75 MG tablet, Take 1 tablet (75 mg) by mouth daily. (Patient not taking: Reported on 03/15/2025), Disp: 90 tablet, Rfl: 3 timolol (Timoptic) 0.5 % ophthalmic solution, Administer 1 drop into the right eye 2 times daily. (Patient not taking: Reported on 03/15/2025), Disp: , Rfl: Pedroleallen Ellipta 100-62.5-25 MCG/ACT aerosol powder , Take 1 puff by mouth daily. (Patient not taking: Reported on 03/15/2025), Disp: , Rfl: [4] [5] [6] [7] Family History Problem Relation Name Age of Onset Melanoma Father Lung cancer Father Diabetes Brother Cancer Brother [8] Allergies Allergen Reactions Advair Hfa [Fluticasone-Salmeterol] Arm numbness Amoxicillin Vomiting and diarrhea Amoxicillin-Pot Clavulanate Other Reaction(s): vomitting & diarrhea Percocet [Oxycodone-Acetaminophen] Itching documented in this encounter [facility] 01-02-2025 History of Present illness Narrative Can [...] choroidals (not yet appositional) - Evaluated at [facility] 07/12/24 with intense nausea and multiple episodes [...] to HTN (SBP 199/99 at presentation to [facility]) and anticoagulation that led to angle closure [...] its relevant components. documented in this encounter [facility] 01-02-2025 Note HNO ID: [id number] Author: SAVANA LOPEZ MD Service: ? Author [...] choroidals (not yet appositional) - Evaluated at [facility] 07/12/24 with intense nausea and multiple episodes [...] to HTN (SBP 199/99 at presentation to [facility]) and anticoagulation that led to angle closure [...] plan as state (more content not included)... 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 HYSTERECTOMY ORTHOPEDIC SURGERY THROMBECTOMY Right 04/06/2024 RLE mechanical thrombectomy (Krzysztof) VASCULAR SURGERY Right 11/22/2024 AORTOILIAC ANGIOGRAPHY, RIGHT LOWER EXTREMITY ANGIOGRAPHY WITH RUNOFF, SUPERFICIAL FEMORAL ARTERY, POPLITEAL,TIBIAL ANGIOPLASTY and STENTING (Krzysztof) VASCULAR SURGERY Left 11/22/2024 Left femoral angiography (Krzysztof) documented in this encounter [facility] 12-05-2024 History of Present illness Narrative [...] right with MICHELLE PAD (peripheral artery disease) ([facility]) Relevant Orders Vascular US lower [...] I reviewed the images with the patient's [id number] who was present for today's visit as the patient is blind. Follow up after arterial duplex to discuss the results. 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 Groin site remains intact and LE distal pulses unchanged via assessment with doppler. Transportation called for orange picker machine operator [facility] 11-22-2024 Miscellaneous Notes POA called to bedside and discharge instructions reviewed. Groin site remains intact and LE distal pulses unchanged via assessment with doppler. Transportation called for orange picker machine operator POA given updated via [...] the patient as well as the patient's [id number] Fidel. They have elected to proceed. PROCEDURE [...] technique was used to place a 5 Luxembourger sheath. The Bentson wire was positioned in [...] catheter and the catheter removed. The 5 Luxembourger sheath was exchanged for a long 6 Luxembourger Ansell sheath which was positioned with its [...] sheath was exchanged for a short 6 Luxembourger sheath. A Vascade closure device was deployed [...] MD Vascular Surgery documented in this encounter [facility] 11-22-2024 Procedure note POA given updated via phone call. Made aware of patient's orders to lay flat until 1325. Daughter in law stated that she will call care facility later to make arrangements for transportation back. [facility] 11-22-2024 Hospital Discharge instructions Mehreen Khanna [...] the office l documented in this encounter [facility] 11-22-2024 Nurse Note Patient arrived on unit. Name and date verified. Attached to monitors. Vital signs stable. [facility] 11-22-2024 Note [facility] 11-22-2024 Procedure note OPERATIVE REPORT DATE [...] the patient as well as the patient's [id number] Fidel. They have elected to proceed. PROCEDURE [...] technique was used to place a 5 Luxembourger sheath. The Bentson wire was positioned in [...] catheter and the catheter removed. The 5 Luxembourger sheath was exchanged for a long 6 Luxembourger Ansell sheath which was positioned with its [...] sheath was exchanged for a short 6 Luxembourger sheath. A Vascade closure device was deployed [...] preoperative examination. Kristyn Blankenship MD Vascular Surgery [facility] 11-22-2024 Attending History and physical note [...] with a walker with pT at her [facility] facility. She is on Eliquis and statin. She is a former smoker. PastMedical History: Past Medical History: Diagnosis Date Arrhythmia PAF Asthma Chronic kidney disease COPD (chronic obstructive pulmonary disease) (HCC) DVT (deep venous thrombosis) ([facility]) Essential hypertension 03/07/2020 GERD (gastroesophageal reflux disease) Hiatal hernia IBS (irritable bowel syndrome) Pure hypercholesterolemia 03/07/2020 PVD (peripheral vascular disease) ([facility]) Stroke ([facility]) Past Surgical History: Past Surgical History: Procedure Laterality Date ANKLE SURGERY ARM SURGERY (HISTORICAL) Right COLONOSCOPY ESOPHAGEAL DILATION EYE SURGERY Right 07/05/2024 [facility] EYE SURGERY Right 06/2024 x2, [facility] FINGER AMPUTATION Right 03/07/2020 right index finger [...] Resource Strain: Low Risk (06/20/2024) Received from [facility] Medical Overall Financial Resource Strain [...] min Stress: Patient Unable To Answer (08/03/2024) [place] [employer] - Occupational Stress Questionnaire Feeling of Stress : Patient unable to answer Social Connections: Unknown (08/03/2024) Social Connection and Isolation Panel [NHANES] Frequency of Communication with Friends and Family: Patient unable to answer Frequency of Social Gatherings with Friends and Family: Patient unable to answer Attends Catholic Services: Patient unable to answer Active Member of Clubs or Organizations: Patient unable to answer Attends Club or Organization Meetings: Never Marital Status: Patient unable to answer Recent Concern: Social Connections - Moderately Isolated (06/20/2024) Received from [facility] Medical Social Connection and Isolation Panel [NHANES] Frequency of Communication with Friends and Family: More than three times a week Frequency of Social Gatherings with Friends and Family: Once a week Attends Catholic Services: More than 4 times per year [...] like me to discuss this with her owogeqag-wt-tce Fidel Castillo. She states she is her POA. I have contacted Fidel via telephone and explained the above and the recommendations for angiography. She will speak with the patient and call the office to let us know how they would like to proceed. Kristyn Blankenship MD Vascular Surgery [employer] Work Phone: 11-22-2024 Note [facility] 11-22-2024 History and physical note H&P [...] with a walker with pT at her [facility] facility. She is on Eliquis and statin. She is a former smoker. PastMedical History: Past Medical History: Diagnosis Date Arrhythmia PAF Asthma Chronic kidney disease COPD (chronic obstructive pulmonary disease) (HCC) DVT (deep venous thrombosis) ([facility]) Essential hypertension 03/07/2020 GERD (gastroesophageal reflux disease) Hiatal hernia IBS (irritable bowel syndrome) Pure hypercholesterolemia 03/07/2020 PVD (peripheral vascular disease) ([facility]) Stroke ([facility]) Past Surgical History: Past Surgical History: Procedure Laterality Date ANKLE SURGERY ARM SURGERY (HISTORICAL) Right COLONOSCOPY ESOPHAGEAL DILATION EYE SURGERY Right 07/05/2024 [facility] EYE SURGERY Right 06/2024 , [facility] FINGER AMPUTATION Right 03/07/2020 right index finger [...] min Stress: Patient Unable To Answer (08/03/2024) [place] [employer] - Occupational Stress Questionnaire Feeling of Stress : Patient unable to answer Social Connections: Unknown (08/03/2024) Social Connection and Isolation Panel [NHANES] Frequency of Communication with Friends and Family: Patient unable to answer Frequency of Social Gatherings with Friends and Family: Patient unable to answer Attends Catholic Services: Patient unable to answer Active Member of Clubs or Organizations: Patient unable to answer Attends Club or Organization Meetings: Never Marital Status: Patient unable to answer Recent Concern: Social Connections - Moderately Isolated (06/20/2024) Received from [facility] Medical Social Connection and Isolation Panel [NHANES] Frequency of Communication with Friends and Family: More than three times a week Frequency of Social Gatherings with Friends and Family: Once a week Attends Catholic Services: More than 4 times per year [...] like me to discuss this with her [id number] Fidel Castillo. She states she is her POA. I have contacted Fidel via telephone and explained the above and the recommendations for angiography. She will speak with the patient and call the office to let us know how they would like to proceed. Kristyn Blankenship MD Vascular Surgery documented in this encounter [facility] 11-09-2024 Note Tried to reach patie nt to discuss linseed oil press tender her procedure. Mailbox full & unable to leave voicemail. [facility] 11-05-2024 History of Present illness Narrative [...] with a walker with pT at her [facility] facility. She is on Eliquis and statin. 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 Authorizing Provider amLODIPine (Norvasc) 5 MG tablet Take 1 tablet (5 mg) by mouth daily. 08/12/24 08/12/25 Kael Hayward, apixaban (Eliquis) 5 MG tablet Take 1 [...] Resource Strain: Low Risk (06/20/2024) Received from [facility] Overall Financial Resource Strain (CARDIA) [...] min Stress: Patient Unable To Answer (08/03/2024) [place] [employer] - Occupational Stress Questionnaire Feeling of Stress : Patient unable to answer Social Connections: Unknown (08/03/2024) Social Connection and Isolation Panel [NHANES] Frequency of Communication with Friends and Family: Patient unable to answer Frequency of Social Gatherings with Friends and Family: Patient unable to answer Attends Catholic Services: Patient unable to answer Active Member of Clubs or Organizations: Patient unable to answer Attends Club or Organization Meetings: Never Marital Status: Patient unable to answer Recent Concern: Social Connections - Moderately Isolated (06/20/2024) Received from [facility] Medical Social Connection and Isolation Panel [NHANES] Frequency of Communication with Friends and Family: More than three times a week Frequency of Social Gatherings with Friends and Family: Once a week Attends Catholic Services: More than 4 times per year [...] like me to discuss this with her [id number] Fidel Castillo. She states she is her POA. I have contacted Fidel via telephone and explained the above and the recommendations for angiography. She will speak with the patient and call the office to let us know how they would like to proceed. Kristyn Blankenship MD Vascular Surgery documented in this encounter [facility] 11-05-2024 Note [facility] 10-01-2024 Note Date of Procedure 10/01/2024. Victim Advocate Information CATALINA Donovan CDOS 10/01/2024 10:58 AM [...] drops right eye documented in this encounter [facility] 10-01-2024 Note HNO ID: [id number] Author: SAVANA LOPEZ MD Service: ? Author [...] choroidals (not yet appositional) - Evaluated at [facility] 07/12/24 with intense nausea and multiple episodes [...] to HTN (SBP 199/99 at presentation to [place]) and anticoagulation that led to angle closure [...] agree with al (more content not included)... [facility] 10-01-2024 History of Present illness [...] choroidals (not yet appositional) - Evaluated at [facility] 07/12/24 with intense nausea and multiple episodes [...] to HTN (SBP 199/99 at presentation to [place]) and anticoagulation that led to angle closure [...] its relevant components. 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 documented in this encounter [facility] 09-05-2024 Note HNO ID: [id number] Author: SAVANA LOPEZ MD Service: ? 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 [facility] 08-22-2024 History of Present illness Narrative [facility] [place] Vascular Surgery Follow-up Office Visit CHIEF COMPLAINT: Chief Complaint Patient presents with Follow-up 3 month follow up, [facility] ( [facility] HISTORY OF PRESENT ILLNESS: Mel Pop [...] is ambulating with walker with PT at without difficulty. She denies any rest pain [...] 07/05/2024 [facility] EYE SURGERY Right 06/2024 x2, [facility] FINGER AMPUTATION Right 03/07/2020 right index finger [...] Resource Strain: Low Risk (06/20/2024) Received from [facility] Medical Overall Financial Resource Strain [...] min Stress: Patient Unable To Answer (08/03/2024) [employer] - Occupational Stress Questionnaire Feeling of Stress : Patient unable to answer Social Connections: Unknown (08/03/2024) Social Connection and Isolation Panel [NHANES] Frequency of Communication with Friends and Family: Patient unable to answer Frequency of Social Gatherings with Friends and Family: Patient unable to answer Attends Catholic Services: Patient unable to answer Active Member of Clubs or Organizations: Patient unable to answer Attends Club or Organization Meetings: Never Marital Status: Patient unable to answer Recent Concern: Social Connections - Moderately Isolated (06/20/2024) Received from [facility] Medical Social Connection and Isolation Panel [NHANES] Frequency of Communication with Friends and Family: More than three times a week Frequency of Social Gatherings with Friends and Family: Once a week Attends Catholic Services: More than 4 times per year [...] (HCC) - Primary PAD (peripheral artery disease) ([facility]) 1. Stable follow up of [...] Follow-Up: prn . documented in this encounter [facility] 08-16-2024 Note [facility] 08-16-2024 Nurse Note Patient picked up for transfer to [facility] by stretcher. Report already called to GENET Garcia. [facility] 08-16-2024 Nurse Note Patient picked up for transfer to [facility] by stretcher. Report already called to GENET Garcia. Telephone report called to GENET Garcia at [facility]. Bedside swallow completed. Pt passed and tolerated well tolerated well. documented in this encounter [facility] 08-16-2024 Nurse Note Telephone report called to GENET Garcia at [facility]. [facility] 08-16-2024 Note Formatting of this n ote might be different from the original. Arranged transport to [facility] via [employer] stretcher with pickup at 2pm. Notified snf of transport time via Careport message; reviewed time with RN, equal opportunity director and TCC. Called pt's daughter to review discharge time., plan; she is agreeable. [facility] 08-16-2024 Note Formatting of this n ote might be different from the original. Arranged transport to [facility] via [employer] with pickup at 2pm. Notified snf of transport time via Careport message; reviewed time with RN, equal opportunity director and TCC. Called pt's daughter to review discharge time., plan; she is agreeable. [facility] 08-16-2024 Miscellaneous Notes Arranged transport to [facility] via [employer] with pickup at 2pm. Notified snf of transport time via Careport message; reviewed time with RN, equal opportunity director and TCC. Called pt's daughter to review discharge time., plan; she is agreeable. Patient Choice Patient Name: MEL POP Date of : 1940 All Providers Sent Referral Name: [facility] Phone: [phone] Address: [address] [place] [address] Name: [facility] Phone: [phone] Address: [address] [place] [address] Name: [facility] Phone: [phone] Address: [address] [place] [address] MAR & Discharge med list transmitted to [facility] via [facility]port per TCC request. Pt has auth to go to [facility]. Dtr Fidel,[phone] was called, message left @DC. Care Team was messaged...place DC orders/MAR. Dar YOUNG RN complete HECTOR. TRANSFER DRIVER will arrange transport for this am. BENCH HAND MACHINE tasked to sebd DC orders/MAR. Problem: Knowledge [...] met Outcome: Progressing Authorization is pending with [facility]. Ref# [id number] to be DC'd to [facility]. Dttiffanie Stokes Updated. CM to follow. Patient [...] Progressing Pt has Been accepted to [facility]. Need PT/OT to see so auth to be started. Therapy to see today was sent. Called and spoke with Dttiffanie Stokes, w updates. SNF tasked w update. CM to [...] Outcome: Progressing Referral placed to SNF- [facility] via [facility] per TCC request. Await review and response regarding ability to accept. TCC notified. Electronically signed by Christine Morataya [facility], 08-13-2024 at 3:00 PM Called dgt to talk about dc planning. Dgt continues to tour SNFs this evening, since she was sick this weekend. Provided me with two more SNF choices. [facility]. Tasked [facility] to create these referrals. CM to [...] place, Dgt touring facilities over the weekend. [facility] pending acceptance, updates sent via [facility]. Problem: Knowledge Deficit Goal: Patient/family/caregiver demonstrates [...] Nutritional Intake Outcome: Progressing Referral placed to [facility] via Careport per TCC request. Await review and response regarding ability to accept. TCC notified. Electronically signed by Christine Morataya [facility], 08-10-2024 at 9:23AM Pt was to be DC to [facility]. Found out pt and dtr didn't want to return to [facility]. SNF was made aware. On adm spoke with Dtr Fidel, ok to return. Called Dtr this am, after speaking with pt and things that happened and didn't happen. Fidel requesting a referral to be made to [facility]. [facility] tasked to send. A SNF list was emailed to Fidel. [email or web address]. She will tour facilities over weekend. CM [...] and med list sent via Careport to [facility] per TCC request. Auth received. Patient with active dc orders. Transportation arranged through [employer] with estimated orange picker machine operator time of 1929. VM left with daughter Fidel along with 3N phone number to call with questions. Bedside RN aware. Facility updated. [facility] blast furnace supervisor sent orders to [facility]. configuration manager was asked to assist with setting up transport back to [facility] this evening. pleater had already done so, but this manager hotel called daughter to inform her of discharge and transport set up. Daughter did not wish patient to return to the SNF. Grocery Clerk Checking told her that patient is medically stable for dc and that she should continue the discussion with the social worker psychiatric and production administrator at The snf, and also get options from [employer]. Coordinator was to message the snf about return this evening via [employer]. Updated PT/OT notes placed to SNF [facility] via [employer] per TCC request. Await review and response regarding ability to accept. TCC notified. Electronically signed by [facility] Aracelis Gardiner Patient is medically ready for dc. PT/OT both continuing to recommend SNF. [facility] manager hotel asked to start auth. Plan to dc back to [facility] pending auth I was off Yesterday, PT note was in from Tuesday. Therapy to see today was sent out to OT Tuesday to see yesterday. Pt was not seen. I did sent a therapy to see today to PT/OT so an auth can be started. Pt will Be Dc'd to [facility]. CM to follow. Problem: Knowledge Deficit Goal: [...] aspiration 2/2 vomiting. Discharge Plan: Return to [facility]. Therapy eval needed for precert. TCC to [...] Plan is for pt to return to [facility]. Auth and HECTOR needed prior to DC. CM to follow. Per attending pt ready for DC. Pt will return to [facility]. Pt needs PT/OT to start auth [...] RN Outcome: Progressing Return referral placed to [facility] via Careport per TCC request. Await review and response regarding ability to accept. TCC notified. Pt to ED w N/V/Diarrhea, was Dx w Aspiration pneumonitis. Started on IV ATB's. Called pt's Dtr, Fidel, . Pt is from [facility]. Plan on returning. [facility] tasked to send a return referral. [...] Improved Outcome: Progressing documented in this encounter [facility] 08-16-2024 Note Formatting of this n ote might be different from the original. Patient Choice Patient Name: MEL POP Date of : 1940 All Providers Sent Referral Name: Mckenzie Adames [facility] Phone: [phone] Address: [address] [place], [place] [id number] Name: [facility] Phone: [phone] Address: [address] [place] [address] Name: [facility] Phone: [phone] Address: [address] [place] [address] [facility] 08-16-2024 Note Formatting of this n ote might be different from the original. Patient Choice Patient Name: MEL POP Date of : 1940 All Providers Sent Referral Name: [facility] Phone: [phone] Address: [address] [place] [address] Name: [facility] Phone: [phone] Address: [address] [place] [address] Name: [facility] Phone: [phone] Address: [address] [place] [address] [facility] 08-16-2024 Note Formatting of this n ote might be different from the original. MAR & Discharge med list transmitted to [facility] per TCC request. [facility] 08-16-2024 Note Formatting of this n ote might be different from the original. MAR & Discharge med list transmitted to [facility] via Careport per TCC request. [facility] 08-16-2024 Note Formatting of this n ote might be different from the original. Pt has auth to go to [facility]. Dtr [phone] was called, message left @DC. Care Team was messaged...place DC orders/MAR. Dar YOUNG, RN complete HECTOR. TRANSFER DRIVER will arrange transport for this am. BENCH HAND MACHINE tasked to sebd DC orders/MAR. [employer] 08-16-2024 Note Formatting of this n ote might be different from the original. Pt has auth to go to [facility]. Dtr Fidel,[phone] was called, message left @DC. Care Team was messaged...place DC orders/MAR. Dar YOUNG, RN complete HECTOR. TRANSFER DRIVER will arrange transport for this am. BENCH HAND MACHINE tasked to sebd DC orders/MAR. [facility] 08-16-2024 History of Present illness Narrative Hospitalist Progress Note 08/16/2024 Subjective: Admit Date: 08/03/2024 PCP: Jared Evans MD Room#: [id number] A BRIEF HOSPITAL COURSE: Mel is a 83 y.o. female with past medical history below who presents with chief complaint listed above.Patient is an 83 y/o female who presented to [place] [facility] early this AM from local [place] for [place] and [place]. Patient reported she [...] Pure hypercholesterolemia 03/07/2020 PVD (peripheral vascular disease) ([facility]) Stroke ([facility]) LABS: CBC: No results for [...] Devika Escobar MD Division of Hospitalist Medicine [facility] Hospitalist Progress Note 08/15/2024 Subjective: Admit Date: 08/03/2024 PCP: Jared Evans MD Room#: [id number] A BRIEF HOSPITAL COURSE: Mel is a 83 y.o. female with past medical history below who presents with chief complaint listed above.Patient is an 83 y/o female who presented to [place] [facility] early this AM [place] for [place] and [place]. Patient reported she [...] kidney disease COPD (chronic obstructive pulmonary disease) ([facility]) DVT (deep venous thrombosis) ([facility]) Essential hypertension 03/07/2020 GERD (gastroesophageal reflux disease) Hiatal hernia IBS (irritable bowel syndrome) Pure hypercholesterolemia 03/07/2020 PVD (peripheral vascular disease) ([facility]) Stroke ([facility]) LABS: CBC: No results for [...] Escobar MD Division of Hospitalist Medicine [facility] Images from the original note were not included. PHYSICAL THERAPY [facility] Treatment Note Name/MRN: Mel Pop ([id number]) Date of : 1940 Age: 83 y.o. 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 [...] Goal: keep getting up, get back to [place]. Encounter Problems Encounter Problems (Active) Balance Patient [...] original note were not included. OCCUPATIONAL THERAPY [facility] Treatment Note Name/MRN: Mel Pop ([id number]) Date of : 1940 Age: 83 y.o. [facility] A Discharge Recommendation: [facility] Facility Prior Level of Function Prior Level [...] assist, home health OT and home health provider. Pt. ( Who is totally BLIND), Would due better receiving therapy in her home due to familiar environment. If she can not get 24/7 assist at home then OT recommend SNF at [facility]. Subjective Pt. Remains in her recliner eating [...] Date: 08/03/2024 PCP: Jared Evans MD Room#: [id number] A BRIEF HOSPITAL COURSE: Mel is a 83 y.o. female with past medical history below who presents with chief complaint listed above.Patient is an 83 y/o female who presented to [place] [facility] early this AM [place] and [place]. Patient reported she [...] Escobar MD Division of Hospitalist Medicine [facility] Hospitalist Progress Note 08/13/2024 Subjective: Admit Date: 08/03/2024 PCP: Jared Evans MD Room#: [id number] A BRIEF HOSPITAL COURSE: Mel is a 83 y.o. female with past medical history below who presents with chief complaint listed above.Patient is an 83 y/o female who presented to [place] [facility] early this AM [place]. Patient reported she [...] pulmonary disease) (HCC) DVT (deep venous thrombosis) ([facility]) Essential hypertension 03/07/2020 GERD (gastroesophageal reflux disease) Hiatal hernia IBS (irritable bowel syndrome) Pure hypercholesterolemia 03/07/2020 PVD (peripheral vascular disease) ([facility]) Stroke ([facility]) LABS: CBC: No results for [...] Kael Hayward DO Division of Hospitalist Medicine [facility] Nutrition Assessment Type and Reason for Visit: [...] No significant fluid accumulation (per flow sheets) Speech Clinician Strength: Not Performed Nutrition Assessment: 83 y.o. [...] On: Kcal/kg Weight Used for Energy Requirements: [place] Weight for Energy Calculation (kg): 54 kg Total Energy Requirements (kcals/day): 1009-6751 Weight Used for Protein Requirements: [place] Weight in Kg Used for Protein Requirements: [...] 160# 07/05) % Weight Change (Calculated): 12.2 [place] Body Weight (lbs) (Calculated): 119 lbs [place] Body Weight (Kg) (Calculated): 54 kg BMI [...] soon to determine Janki Fields RD Contact: *[phone] Hospitalist Progress Note 08/12/2024 Subjective: Admit Date: 08/03/2024 PCP: Jared Evans MD Room#: [id number] A BRIEF HOSPITAL COURSE: Mel is a 83 y.o. female with past medical history below who presents with chief complaint listed above.Patient is an 83 y/o female who presented to [facility] early this AM [place] and [place]. Patient reported she [...] pulmonary disease) (HCC) DVT (deep venous thrombosis) ([facility]) Essential hypertension 03/07/2020 GERD (gastroesophageal reflux disease) Hiatal hernia IBS (irritable bowel syndrome) Pure hypercholesterolemia 03/07/2020 PVD (peripheral vascular disease) ([facility]) Stroke ([facility]) LABS: CBC: No results for [...] Kael Hayward DO Division of Hospitalist Medicine [facility] Hospitalist Progress Note 08/11/2024 Subjective: Admit Date: 08/03/2024 PCP: Jared Evans MD Room#: [id number] A BRIEF HOSPITAL COURSE: Mel is a 83 y.o. female with past medical history below who presents with chief complaint listed above.Patient is an 83 y/o female who presented to [place] [facility] early this AM [place]. Patient reported she [...] pulmonary disease) (HCC) DVT (deep venous thrombosis) ([facility]) Essential hypertension 03/07/2020 GERD (gastroesophageal reflux disease) Hiatal hernia IBS (irritable bowel syndrome) Pure hypercholesterolemia 03/07/2020 PVD (peripheral vascular disease) ([facility]) Stroke ([facility]) LABS: CBC: No results for [...] Medicine [employer] [facility] [employer] Hospitalist Progress Note 08/10/2024 Subjective: Admit Date: 08/03/2024 PCP: Jared Evans MD Room#: [id number]/[facility] A BRIEF HOSPITAL COURSE: Mel is a 83 y.o. female with past medical history below who presents with chief complaint listed above.Patient is an 83 y/o female who presented to [place] [facility] early this AM [place]. Patient reported she [...] Pure hypercholesterolemia 03/07/2020 PVD (peripheral vascular disease) ([facility]) Stroke ([facility]) LABS: CBC: No results for [...] Hayward DO Division of Hospitalist Medicine [facility] Hospitalist Progress Note 08/09/2024 Subjective: Admit Date: 08/03/2024 PCP: Jared Evans MD Room#: [id number] A BRIEF HOSPITAL COURSE: Mel is a 83 y.o. female with past medical history below who presents with chief complaint listed above.Patient is an 83 y/o female who presented to [place] [facility] early this AM [place]. Patient reported she [...] Kael Hayward DO Division of Hospitalist Medicine [facility] Images from the original note were not included. OCCUPATIONAL THERAPY [facility] Initial Evaluation Name/MRN: Mel Pop ([id number]) Evaluation Date: 08/08/2024 Date of : 1940 Admission Date: 08/03/2024 2:22 AM Age: 83 y.o. Room/Bed: N5[facility]8/N5[facility]8 A Discharge Recommendation: [facility] Facility Assessment IMPRESSION: Pt would benefit from [...] kidney disease COPD (chronic obstructive pulmonary disease) ([facility]) DVT (deep venous thrombosis) ([facility]) Essential hypertension 03/07/2020 GERD (gastroesophageal reflux disease) Hiatal hernia IBS (irritable bowel syndrome) Pure hypercholesterolemia 03/07/2020 PVD (peripheral vascular disease) ([facility]) Stroke ([facility]) Past Surgical History: Past Surgical History: Procedure Laterality Date ANKLE SURGERY ARM SURGERY (HISTORICAL) Right COLONOSCOPY ESOPHAGEAL DILATION EYE SURGERY 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 HYSTERECTOMY ORTHOPEDIC SURGERY THROMBECTOMY Right 04/06/2024 RLE mechanical thrombectomy (Krzysztof) Admission Diagnosis: Patient Active Problem List Diagnosis Date Noted Aspiration pneumonitis ([facility]/HCC) ([facility]) 08/03/2024 Visual disturbance, subjective 07/06/2024 Retinal detachment, right 07/05/2024 Vision loss of right eye 07/05/2024 Acute venous embolism and thrombosis of deep vessels of proximal lower extremity ([facility]) 04/14/2024 Peripheral arterial disease ([facility]) 04/03/2024 Immunodeficiency due to conditions classified elsewhere ([facility]) 07/27/2023 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 ([facility]) 07/27/2023 Bilateral pneumonia 06/16/2022 COVID-19 06/16/2022 Hypothyroidism 06/16/2022 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[facility]) 06/16/2022 Cellulitis 05/18/2022 Nicotine use disorder 05/18/2022 Acute venous embolism and thrombosis of deep vessels of proximal end of right lower extremity ([facility]) 04/19/2024 Atrial fibrillation, unspecified type ([facility]) 04/19/2024 Irritable bowel syndrome with diarrhea 03/07/2020 Microscopic hematuria 03/07/2020 Left retinal detachment 03/07/2020 Hyperglycemia 03/07/2020 Osteopenia of left femoral neck 03/07/2020 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 03/07/2020 Seasonal allergies 03/07/2020 Chronic renal insufficiency, stage III (moderate) ([facility]) 03/07/2020 Major depression, single episode, in complete remission ([facility]) 03/07/2020 Gastroesophageal reflux disease without esophagitis 03/07/2020 Essential hypertension 03/07/2020 Pure hypercholesterolemia 03/07/2020 Overweight 03/07/2020 Psoriasis 03/07/2020 History of cerebrovascular accident 03/07/2020 Atrial fibrillation ([facility]) 03/07/2020 Chronic obstructive pulmonary disease ([facility]) 03/07/2020 Finger osteomyelitis, right ([facility]) 03/06/2020 Medical Precautions: Enhanced Contact [...] of Care supervision is transferred to a [facility] Therapy Services Occupational Therapist. Goals and/or treatment plan was established in collaboration with patient/family/other representatives. Shannon Fernandez MS, OTR/L Images from the original note were not included. PHYSICAL THERAPY [facility] Treatment Note Name/MRN: Mel Pop ([id number]) Date of : 1940 Age: 83 y.o. [facility] Discharge Recommendation: [facility] Facility Equipment Needed: (pt uses FWW MATERIAL HANDLER 2ND SHIFT) Prior Level of Function Prior Level of [...] Raw Score (No Stairs) : 15 [facility] Score: Walked 25 ft or more (i.e. walked outside of room) Goals Patient Stated Goal: keep getting up, get back to [place]. Encounter Problems Encounter Problems (Active) Balance Patient [...] Date: 08/03/2024 PCP: Jared Evans MD Room#: N7-937/[id number] A BRIEF HOSPITAL COURSE: Mel is a 83 y.o. female with past medical history below who presents with chief complaint listed above.Patient is an 83 y/o female who presented to [place] [facility] early this AM from local [place] for [place] and diarrhea. Patient reported she [...] Stroke (HCC) LABS: CBC: Recent Labs 08/05/24 2343 WBC [...] Mobile Relation: Mother Secondary Emergency Contact: BroderickDamaris NOT CALL-TERMINALLY ILL Mobile Relation: Friend Kael Hayward DO Division of Hospitalist Medicine [facility] Hospitalist Progress Note 08/07/2024 Subjective: Admit Date: 08/03/2024 PCP: Jared Evans MD Room#: N5-875/[id number] A BRIEF HOSPITAL COURSE: Mel is a 83 y.o. female with past medical history below who presents with chief complaint listed above.Patient is an 83 y/o female who presented to [place] [facility] early this AM [place] for [place] and [place]. Patient reported she [...] kidney disease COPD (chronic obstructive pulmonary disease) ([facility]) DVT (deep venous thrombosis) ([facility]) Essential hypertension 03/07/2020 GERD (gastroesophageal reflux disease) Hiatal hernia IBS (irritable bowel syndrome) Pure hypercholesterolemia 03/07/2020 PVD (peripheral vascular disease) ([facility]) Stroke ([facility]) LABS: CBC: Recent Labs 08/05/24 0358 08/05/24 [...] 100 mL/hr, Last Rate: 100 mL/hr (08/06/24 7604) Assessment Data: Acute, acute on chronic, unstable/uncontrolled [...] Kael Hayward DO Division of Hospitalist Medicine [facility] Hospitalist Progress Note 08/06/2024 Subjective: Admit Date: 08/03/2024 PCP: Jared Evans MD Room#: N5-085/[id number] A BRIEF HOSPITAL COURSE: Mel is a 83 y.o. female with past medical history below who presents with chief complaint listed above.Patient is an 83 y/o female who presented to [place] [facility] early this AM [place] for [place]. Patient reported she [...] pulmonary disease) (HCC) DVT (deep venous thrombosis) ([facility]) Essential hypertension 03/07/2020 GERD (gastroesophageal reflux disease) Hiatal hernia IBS (irritable bowel syndrome) Pure hypercholesterolemia 03/07/2020 PVD (peripheral vascular disease) ([facility]) Stroke ([facility]) LABS: CBC: Recent Labs 08/04/24 [...] 100 mL/hr, Last Rate: 100 mL/hr (08/05/24 181) Assessment Data: NA (LOW: 2x CAT1 or [...] Kayden Tatum MD Division of Hospitalist Medicine [facility] Images from the original note were not included. PHYSICAL THERAPY [facility] Initial Evaluation Name/MRN: Mel Pop ([id number]) Evaluation Date: 08/06/2024 Date of : 1940 Admission Date: 08/03/2024 2:22 AM Age: 83 y.o. [facility]: [facility] A Discharge Recommendation: Usp Facility (pt from SNF at baseline) Equipment Needed: (pt uses FWW MATERIAL HANDLER 2ND SHIFT) Assessment IMPRESSION: Pt's Vincent scoring has varied [...] to SNF-level care (pt was receiving PT MATERIAL HANDLER 2ND SHIFT) Admitting Diagnosis: aspiration pneumonitis, + Norovirus. S/p [...] Problem List Diagnosis Date Noted Aspiration pneumonitis ([facility]) ([facility]) 08/03/2024 Visual disturbance, subjective 07/06/2024 Retinal detachment, right 07/05/2024 Vision loss of right eye 07/05/2024 Acute venous embolism and thrombosis of deep vessels of proximal lower extremity ([facility]) 04/14/2024 Peripheral arterial disease ([facility]) 04/03/2024 Immunodeficiency due to conditions classified elsewhere ([facility]) 07/27/2023 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 ([facility]) 07/27/2023 Bilateral pneumonia 06/16/2022 COVID-19 06/16/2022 Hypothyroidism 06/16/2022 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[facility]) 06/16/2022 Cellulitis 05/18/2022 Nicotine use disorder 05/18/2022 Acute venous embolism and thrombosis of deep vessels of proximal end of right lower extremity ([facility]) 04/19/2024 Atrial fibrillation, unspecified type ([facility]) 04/19/2024 Irritable bowel syndrome with diarrhea 03/07/2020 Microscopic hematuria 03/07/2020 Left retinal detachment 03/07/2020 Hyperglycemia 03/07/2020 Osteopenia of left femoral neck 03/07/2020 penitentiary current use of anticoagulant therapy 03/07/2020 Seasonal allergies 03/07/2020 Chronic renal insufficiency, stage III (moderate) ([facility]) 03/07/2020 Major depression, single episode, in complete remission ([facility]) 03/07/2020 Gastroesophageal reflux disease without esophagitis 03/07/2020 Essential hypertension 03/07/2020 Pure hypercholesterolemia 03/07/2020 Overweight 03/07/2020 Psoriasis 03/07/2020 History of cerebrovascular accident 03/07/2020 Atrial fibrillation ([facility]) 03/07/2020 Chronic obstructive pulmonary disease ([facility]) 03/07/2020 Finger osteomyelitis, right ([facility]) 03/06/2020 Medical Precautions: Enhanced Contact [...] OD Hearing: normal Social/Functional History Resident at [facility] at baseline. Goes to therapy and ambulates [...] Goal: keep getting up, get back to [place]. Encounter Problems Encounter Problems (Active) Balance Patient [...] of Care supervision is transferred to a [facility] Physical Therapist. Goals and/or treatment plan was established in collaboration with patient/family/other representatives. Hospitalist Progress Note 08/05/2024 Subjective: Admit Date: 08/03/2024 PCP: Jared Evans MD Room#: N5-548/[id number] A BRIEF HOSPITAL COURSE: Mel is a 83 y.o. female with past medical history below who presents with chief complaint listed above.Patient is an 83 y/o female who presented to [place] [facility] early this AM [place]. Patient reported she [...] pulmonary disease) (HCC) DVT (deep venous thrombosis) ([facility]) Essential hypertension 03/07/2020 GERD (gastroesophageal reflux disease) Hiatal hernia IBS (irritable bowel syndrome) Pure hypercholesterolemia 03/07/2020 PVD (peripheral vascular disease) ([facility]) Stroke ([facility]) LABS: CBC: Recent Labs 08/03/24 02508/04/2444608/05/24 0358 WBC 9.1 5.6 6.5 RBC 4.65 3.88 3.78* HGB 12.1 10.0* 9.9* HCT 38.7 33.0* 31.9* MCV 83.2 85.1 84.4 RDW 19.4* 19.3* 19.2* PLT 303 280 242 BMP: Recent Labs 08/03/24 1421 08/04/247 08/05/24 0358 NA 138 139 134* K 4.7 3.9 3.8 CL 105 112* 108* CO2 27 21* 21* BUN 33* 26* 13 CREATININE 1.18* 1.13* 0.89 GLUCOSE 100 153* 85 CALCIUM 8.5* 8.2* 8.1* ANIONGAP 6 6 5 LIVER PROFILE: Recent Labs 08/03/24 0251 08/04/247 08/05/24 0358 AST 36* 25 24 ALT [...] 100 mL/hr, Last Rate: 100 mL/hr (08/05/24 9183) Assessment Data: NA (LOW: 2x CAT1 or [...] Kayden Tatum MD Division of Hospitalist Medicine [facility] Images from the original note were not included. PHYSICAL THERAPY [facility] Name/MRN: Mel Pop ([id number]) Date: 08/05/2024 PT orders received per Vincent activity/mobility score. Patient currently with Vincent activity/mobility score greater than 2. Per therapy services guidelines, will discharge PT orders. Please place regular PT eval/treat orders if deemed appropriate. Padmaja Wilson PT Hospitalist Progress Note 08/04/2024 Subjective: Admit Date: 08/03/2024 PCP: Jared Evans MD Room#: N5-286/[id number] A BRIEF HOSPITAL COURSE: Mel is a 83 y.o. female with past medical history below who presents with chief complaint listed above.Patient is an 83 y/o female who presented to [place] [facility] early this AM [place]. Patient reported she [...] kidney disease COPD (chronic obstructive pulmonary disease) ([facility]) DVT (deep venous thrombosis) ([facility]) Essential hypertension 03/07/2020 GERD (gastroesophageal reflux disease) Hiatal hernia IBS (irritable bowel syndrome) Pure hypercholesterolemia 03/07/2020 PVD (peripheral vascular disease) ([facility]) Stroke ([facility]) LABS: CBC: Recent Labs 08/03/24 [...] MD Division of Hospitalist Medicine Acute care [facility] documented in this encounter [facility] 08-15-2024 Plan of care note Problem: [...] My discharge needs are met Outcome: Progressing [facility] 08-15-2024 Note Formatting of this n ote might be different from the original. Authorization is pending with [employer]. Ref# [id number] to be DC'd to [facility]. Dtr Fidel Updated. CM to follow. [facility] 08-15-2024 Note Formatting of this n ote might be different from the original. Authorization is pending with [employer]. Ref# [id number] to be DC'd to [facility]. Dtr Fidel Updated. CM to follow. [facility] 08-15-2024 Note Patient progressing toward all goals. [facility] 08-15-2024 Plan of care note Patient progressing toward all goals. 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 Seasonal allergies [...] assistance Toileting Total assistance Feeding Minimal assistance Signal And Communications Maintainer Minimal assistance Med Delivery yes Wound Care [...] select all that are sent with patient): Montgomery RN SIGNATURE: MANAGEMENT/SOCIAL WORK SECTION Inpatient Status Date: 08/03/2024 Discharging to Facility/ Agency Name: [facility] Address: [address] [place] [address] Fax: Dialysis Facility (if applicable) Name: NA Address: Dialysis Schedule: Phone: Fax: Passenger Barge Master/Hose Handler signature: ICIAN SECTION Name: Mel Pop Prognosis: good Condition at Discharge: stable Rehab Potential (if transferring to Rehab): good Recommended Labs or Other Treatments After Discharge: none The individual is being admitted to a nursing facility directly from an [facility] or a unit of a [facility] that is not operated by or licensed by [facility] under section 5119.14 or 5160-3-15.1 5 The individual requires the level of services provided by a nursing facility for the condition for which he or she was treated in the hospital and, Physician Certification: I certify the above information and transfer of Mel Pop is necessary for the continuing treatment of the diagnosis listed and that she requires chcf facility for less than 30 days. Update Admission H&P: No change in H&P PHYSICIAN SIGNATURE: documented in this encounter [facility] 08-14-2024 Note Formatting of this n ote might be different from the original. Pt has Been accepted to [facility]. Need PT/OT to see so auth to be started. Therapy to see today was sent. Called and spoke with Dtr braxton Stokes updates. SNF tasked w update. CM to follow. [facility] 08-14-2024 Note Formatting of this n ote might be different from the original. Pt has Been accepted to [facility]. Need PT/OT to see so auth to be started. Therapy to see today was sent. Called and spoke with Dtr Fidel w updates. SNF tasked w update. CM to follow. [facility] 08-13-2024 Plan of care note Problem: [...] My discharge needs are met Outcome: Progressing [facility] 08-13-2024 Note Formatting of this n ote might be different from the original. Referral placed to [facility] via [facility] per TCC request. Await review and response regarding ability to accept. TCC notified. Electronically signed by Christine Morataya CMA, 08-13-2024 at 3:00 PM [facility] 08-13-2024 Note Formatting of this n ote might be different from the original. Referral placed to - [facility] via [facility] per TCC request. Await review and response regarding ability to accept. TCC notified. Electronically signed by Christine Morataya CMA, 08-13-2024 at 3:00 PM [facility] 08-13-2024 Note Referral placed to [facility] via [facility] per TCC request. Await review and response regarding ability to accept. TCC notified. Electronically signed by Christine Morataya CMA, 08-13-2024 at 3:00 PM [facility] 08-13-2024 Note Formatting of this n ote might be different from the original. Called dgt to talk about dc planning. Dgt continues to tour SNFs this evening, since she was sick this weekend. Provided me with two more SNF choices. [facility]. Tasked [facility] to create these referrals. CM to follow. [facility] 08-13-2024 Note Formatting of this n ote might be different from the original. Called dgt to talk about dc planning. Dgt continues to tour SNFs this evening, since she was sick this weekend. Provided me with two more SNF choices. [facility]. Tasked [facility] to create these referrals. CM to follow. [facility] 08-13-2024 Plan of care note Problem: [...] My discharge needs are met Outcome: Progressing [facility] 08-12-2024 Note Problem: Knowledge D eficit Goal: Patient/family/caregiver demonstrates understanding of disease process, treatment plan, medications, and discharge instructions Outcome: Progressing [facility] [employer] [facility] 08-12-2024 Plan of care note Problem: Knowledge Deficit Goal: Patient/family/caregiver demonstrates understanding of disease process, treatment plan, medications, and discharge instructions Outcome: Progressing [facility] 08-12-2024 Plan of care note Problem: [...] My discharge needs are met Outcome: Progressing [facility] [employer] 08-11-2024 Plan of care note Problem: Knowledge [...] My discharge needs are met Outcome: Progressing [facility] [employer] 08-11-2024 Note Formatting of this n ote might be different from the original. CM noted DC orders in place, Dgt touring facilities over the weekend. Mo[facility]. [facility] pending acceptance, updates sent via [employer]. [facility] [employer] 08-11-2024 Note Formatting of this n ote might be different from the original. JOSH noted DC orders in place, Dgt touring facilities over the weekend. Moira. [facility] pending acceptance, updates sent via careport. [facility] 08-11-2024 Plan of care note Problem: [...] Interventions Goal: Assess Nutritional Intake Outcome: Progressing [facility] 08-10-2024 Note Formatting of this n ote might be different from the original. [facility] per [facility] request. Await review and response regarding ability to accept. TCC notified. Electronically signed by Christine Morataya [facility], 08-10-2024 at 9:23AM [facility] 08-10-2024 Note Formatting of this n ote might be different from the original. Ref[facility] to [facility] per [facility] request. Await review and response regarding ability to accept. TCC notified. Electronically signed by Christine Morataya CMA, 08-10-2024 at 9:23AM [facility] 08-10-2024 Note Ref[facility] to [facility] request. Await review and response regarding ability to accept. TCC notified. Electronically signed by Christine Morataya [facility], 08-10-2024 at 9:23AM [facility] 08-10-2024 Note Formatting of this n ote might be different from the original. Pt was to be DC to [facility]. Found out pt and dtr didn't want to return to [facility]. SNF was made aware. On adm spoke with Dtr Fidel, ok to return. Called Dtr this am, after speaking with pt and things that happened and didn't happen. Fidel requesting a referral to be made to [facility]. BENCH HAND MACHINE tasked to send. A SNF list was emailed to [email or web address] by [email or web address]. She will tour facilities over weekend. CM to follow. [employer] [facility] [employer] 08-10-2024 Note Formatting of this n ote might be different from the original. Pt was to be DC to [facility]. Found out pt and dtr didn't want to return to [facility]. SNF was made aware. On adm spoke with Dtr Fidel, ok to return. Called Dtr this am, after speaking with pt and things that happened and didn't happen. Fidel requesting a referral to be made to [facility]. BENCH HAND MACHINE tasked to send. A SNF list was emailed to [email or web address] by [email or web address]. She will tour facilities over weekend. CM to follow. [facility] [employer] 08-10-2024 Plan of care note Problem: Knowledge [...] Interventions Goal: Assess Nutritional Intake Outcome: Progressing [facility] [employer] 08-09-2024 Note Formatting of this n ote might be different from the original. Discharge summary and med list sent via [facility] to [facility] per [facility] request. [facility] 08-09-2024 Note Formatting of this n ote might be different from the original. Discharge summary and med list sent via [facility] to [facility] per TCC request. [facility] 08-09-2024 Note Discharge summary an d med list sent via [facility] to [facility] per [facility] request. [facility] 08-09-2024 Note Formatting of this n ote might be different from the original. Auth received. Patient with active dc orders. Transportation arranged through [employer] with estimated orange picker machine operator time of 1930. VM left with daughter Fidel along with 3N phone number to call with questions. Bedside RN aware. Facility updated. [facility] blast furnace supervisor sent orders to [facility]. [facility] 08-09-2024 Note Formatting of this n ote might be different from the original. Auth received. Patient with active dc orders. Transportation arranged through [employer] with estimated orange picker machine operator time of 1930. VM left with daughter Fidel along with 3N phone number to call with questions. Bedside RN aware. Facility updated. [facility] blast furnace supervisor sent orders to [facility]. [facility] 08-09-2024 Note Formatting of this n ote might be different from the original. configuration manager was asked to assist with setting up transport back to [facility] this evening. pleater had already done so, but this manager hotel called daughter to inform her of discharge and transport set up. Daughter did not wish patient to return to the SNF. Grocery Clerk Checking told her that patient is medically stable for dc and that she should continue the discussion with the social worker psychiatric and production administrator at The snf, and also get options from [employer]. Coordinator was to message the snf about return this evening via [facility]. [facility] 08-09-2024 Note Formatting of this n ote might be different from the original. configuration manager was asked to assist with setting up transport back to [facility] this evening. pleater had already done so, but this manager hotel called daughter to inform her of discharge and transport set up. Daughter did not wish patient to return to the SNF. Grocery Clerk Checking told her that patient is medically stable for dc and that she should continue the discussion with the social worker psychiatric and production administrator at The snf, and also get options from [employer]. Coordinator was to message the snf about return this evening via [facility]. [facility] 08-09-2024 Note [facility] 08-09-2024 Hospital course Narrative Hospitalist Discharge [...] an 83 y/o female who presented to [place] [facility] early this AM [place]. Patient reported she [...] Ellipta 100-62.5-25 MCG/ACT aerosol powder Generic drug: Ogmciqwmrbb-Kvgysqpym-Ttigvv STOP taking these medications enoxaparin 80 MG/0.8ML [...] Complexity: follow up within 7-14 calendar days (46886) [x] Severe Complexity: follow up within 7 calendar days (86588) Follow up Testing, Pending results or Referrals [...] Hayward DO Division of Hospitalist Medicine Acute [facility] 08/09/2024, 4:23 PM documented in this encounter [facility] 08-09-2024 Note Formatting of this n ote might be different from the original. Updated PT/OT notes placed to [facility] via [facility] per TCC request. Await review and response regarding ability to accept. TCC notified. Electronically signed by [facility] Aracelis Gardiner [facility] 08-09-2024 Note Formatting of this n ote might be different from the original. Updated PT/OT notes placed to [facility] via [facility] per TCC request. Await review and response regarding ability to accept. TCC notified. [facility] 08-09-2024 Note Formatting of this n ote might be different from the original. Patient is medically ready for dc. PT/OT both continuing to recommend SNF. [employer] manager hotel asked to start auth. Plan to dc back to [facility] pending auth [facility] 08-09-2024 Note Formatting of this n ote might be different from the original. Patient is medically ready for dc. PT/OT both continuing to recommend SNF. [employer] manager hotel asked to start auth. Plan to dc back to [facility] pending auth [facility] 08-08-2024 Note Formatting of this n [...] Dc'd to Rosangela Tomlin. CM to follow. [employer] 08-08-2024 Note Formatting of this n ote [...] Dc'd to Rosangela Tomlin. CM to follow. [employer] 08-07-2024 Plan of care note Problem: Knowledge Deficit Goal: Patient/family/caregiver demonstrates understanding of disease process, treatment plan, medications, and discharge instructions Outcome: Progressing Problem: Potential for Compromised Skin Integrity Goal: Skin Integrity is Maintained or Improved Outcome: Progressing Goal: Nutritional status is improving Outcome: Progressing [employer] 08-07-2024 Plan of care note Problem: Knowledge [...] Interventions Goal: Assess Nutritional Intake Outcome: Progressing [employer] 08-07-2024 Note Formatting of this n ote might be different from the original. Case Management Progress Note: Patient remains on 5N for concern with aspiration 2/2 vomiting. Discharge Plan: Return to [facility]. Therapy eval needed for precert. TCC to assist and follow as needed. [facility] [employer] 08-07-2024 Note Formatting of this n ote might be different from the original. Case Management Progress Note: Patient remains on 5N for concern with aspiration 2/2 vomiting. Discharge Plan: Return to [facility]. Therapy eval needed for precert. TCC to assist and follow as needed. [facility] [employer] 08-07-2024 Plan of care note Problem: Knowledge [...] Interventions Goal: Assess Nutritional Intake Outcome: Progressing [facility] [employer] 08-06-2024 Plan of care note Problem: Knowledge [...] Interventions Goal: Assess Nutritional Intake Outcome: Progressing [facility] [employer] 08-06-2024 Note Formatting of this n ote might be different from the original. Pt cont's on IV AtBs'. Plan is for pt to return to [facility]. Auth and HECTOR needed prior to DC. CM to follow. [employer] 08-06-2024 Note Formatting of this n ote might be different from the original. Pt cont's on IV AtBs'. Plan is for pt to return to [facility]. Auth and HECTOR needed prior to DC. CM to follow. [employer] 08-06-2024 Note Formatting of this n ote might be different from the original. Per attending pt ready for DC. Pt will return to [facility]. Pt needs PT/OT to start auth Therapy to see put in for alistair so auth can be started. HECTOR will need completed. CM to follow. [employer] 08-06-2024 Note Formatting of this n ote might be different from the original. Per attending pt ready for DC. Pt will return to [facility]. Pt needs PT/OT to start auth Therapy to see put in for alistair so auth can be started. HECTOR will need completed. CM to follow. [employer] 08-06-2024 Consult note Associated Order (s): IP [...] assess Fluid Accumulation: No significant fluid accumulation Speech Clinician Strength: Not Performed Nutrition Assessment: Pt hx HTN, stroke, COPD, CKD, IBS. Admitted w/ vomiting and diarrhea. +norovirus. Started on abx for concern of aspiration pna. Pt's symptoms have improved during admission. Consuming and tolerating CLD. Medically stable for discharge back to SNF per notes. Estimated Daily Nutrient Needs: Energy Requirements Based On: Kcal/kg Weight Used for Energy Requirements: [place] Weight for Energy Calculation (kg): 54 kg Total Energy Requirements (kcals/day): 3231-4327 Weight Used for Protein Requirements: [place] Weight in Kg Used for Protein Requirements: [...] 160# 07/05) % Weight Change (Calculated): 12.2 [place] Body Weight (lbs) (Calculated): 119 lbs [place] Body Weight (Kg) (Calculated): 54 kg BMI [...] to determine Gabriella Michelle RD, LD Contact: [phone] [facility] 08-06-2024 Consult note Associated Order (s): [...] assess Fluid Accumulation: No significant fluid accumulation Speech Clinician Strength: Not Performed Nutrition Assessment: Pt hx HTN, stroke, COPD, CKD, IBS. Admitted w/ vomiting and diarrhea. +norovirus. Started on abx for concern of aspiration pna. Pt's symptoms have improved during admission. Consuming and tolerating CLD. Medically stable for discharge back to SNF per notes. Estimated Daily Nutrient Needs: Energy Requirements Based On: Kcal/kg Weight Used for Energy Requirements: [place] Weight for Energy Calculation (kg): 54 kg Total Energy Requirements (kcals/day): 8328-5680 Weight Used for Protein Requirements: [place] Weight in Kg Used for Protein Requirements: [...] 160# 07/05) % Weight Change (Calculated): 12.2 [place] Body Weight (lbs) (Calculated): 119 lbs [place] Body Weight (Kg) (Calculated): 54 kg BMI [...] to determine Gabriella Michelle RD, LD Contact: [phone] documented in this encounter [facility] 08-06-2024 Plan of care note Problem: Knowledge Deficit Goal: Patient/family/caregiver demonstrates understanding of disease process, treatment plan, medications, and discharge instructions Outcome: Progressing Problem: Potential for Compromised Skin Integrity Goal: Skin Integrity is Maintained or Improved Outcome: Progressing Goal: Nutritional status is improving Outcome: Progressing Problem: Urinary Incontinence Goal: Perineal skin integrity is maintained or improved Outcome: Progressing [facility] 08-05-2024 Plan of care note Problem: Knowledge Deficit Goal: Patient/family/caregiver demonstrates understanding of disease process, treatment plan, medications, and discharge instructions Outcome: Progressing Problem: Potential for Compromised Skin Integrity Goal: Skin Integrity is Maintained or Improved Outcome: Progressing Goal: Nutritional status is improving Outcome: Progressing Problem: Urinary Incontinence Goal: Perineal skin integrity is maintained or improved Outcome: Progressing [facility] 08-04-2024 Plan of care note Problem: Knowledge Deficit Goal: Patient/family/caregiver demonstrates understanding of disease process, treatment plan, medications, and discharge instructions Outcome: Progressing Problem: Potential for Compromised Skin Integrity Goal: Skin Integrity is Maintained or Improved Outcome: Progressing Goal: Nutritional status is improving Outcome: Progressing Problem: Urinary Incontinence Goal: Perineal skin integrity is maintained or improved Outcome: Progressing [facility] 08-04-2024 Nurse Note Bedside swallow completed. Pt passed and tolerated well tolerated well. [facility] 08-04-2024 Plan of care note Problem: Knowledge Deficit Goal: Patient/family/caregiver demonstrates understanding of disease process, treatment plan, medications, and discharge instructions Outcome: Progressing Problem: Potential for Compromised Skin Integrity Goal: Skin Integrity is Maintained or Improved Outcome: Progressing Goal: Nutritional status is improving Outcome: Progressing Problem: Urinary Incontinence Goal: Perineal skin integrity is maintained or improved Outcome: Progressing [facility] [employer] 08-03-2024 Plan of care note Problem: Knowledge [...] 0842 by Lima Saenz RN Outcome: Progressing [facility] 08-03-2024 Note Formatting of this n ote might be different from the original. Return referral placed to [facility] via [facility] per TCC request. Await review and response regarding ability to accept. TCC notified. [facility] 08-03-2024 Note Formatting of this n ote might be different from the original. Return referral placed to [facility] via [facility] per TCC request. Await review and response regarding ability to accept. TCC notified. [facility] 08-03-2024 Note Return referral plac ed [facility] request. Await review and response regarding ability to accept. TCC notified. [facility] 08-03-2024 Note Formatting of this n ote might be different from the original. Pt to ED w N/V/Diarrhea, was Dx w Aspiration pneumonitis. Started on IV ATB's. Called pt's KeithrFidel, . Pt is from [facility]. Plan on returning. [facility] tasked to send a return referral. [facility] 08-03-2024 Note Formatting of this n ote might be different from the original. Pt to ED w N/V/Diarrhea, was Dx w Aspiration pneumonitis. Started on IV ATB's. Called pt's KeithrFidel, . Pt is from [facility]. Plan on returning. [facility] tasked to send a return referral. [facility] 08-03-2024 History and physical note Attending History and Physical Admit Date: 08/03/2024 PCP: Jared Evans MD CHIEF COMPLAINT: vomiting/diarrhea Reason for Admission: aspiration pneumonitis History Obtained From: patient HISTORY OF PRESENT ILLNESS: Mel is a 83 y.o. female with past medical history below who presents with chief complaint listed above.Patient is an 83 y/o female who presented to [facility] early this AM from local [place] for vomiting and diarrhea. Patient reported she [...] Resource Strain: Low Risk (06/20/2024) Received from [facility] Medical Overall Financial Resource Strain [...] min Stress: Patient Unable To Answer (08/03/2024) [place] [employer] - Occupational Stress Questionnaire Feeling of Stress : Patient unable to answer Social Connections: Unknown (08/03/2024) Social Connection and Isolation Panel [NHANES] Frequency of Communication with Friends and Family: Patient unable to answer Frequency of Social Gatherings with Friends and Family: Patient unable to answer Attends Catholic Services: Patient unable to answer Active Member of Clubs or Organizations: Patient unable to answer Attends Club or Organization Meetings: Never Marital Status: Patient unable to answer Recent Concern: Social Connections - Moderately Isolated (06/20/2024) Received from [facility] Medical Social Connection and Isolation Panel [NHANES] Frequency of Communication with Friends and Family: More than three times a week Frequency of Social Gatherings with Friends and Family: Once a week Attends Catholic Services: More than 4 times per year [...] mgmt was pursued: - inpatient admission to [facility] tele - check stool studies and cdiff, [...] - DO NOT do CPR, intubation] [_] [DNR-SENIOR MOBILE APPLICATION DEVELOPER - Comfort care only] [_] DNR form [...] Shivani Dimas PA-C Division of Hospitalist Medicine [facility] Cosigned by Abbi Long DO at 08/03/2024 [...] sounds present no guarding or regular rigidity [employer] Work Phone: 08-03-2024 Note [employer] [facility] 08-03-2024 History and physical note Attending History and Physical Admit Date: 08/03/2024 PCP: Jared Evans MD CHIEF COMPLAINT: vomiting/diarrhea Reason for Admission: aspiration pneumonitis History Obtained From: patient HISTORY OF PRESENT ILLNESS: Mel is a 83 y.o. female with past medical history below who presents with chief complaint listed above.Patient is an 83 y/o female who presented to [facility] early this AM from local [place] for vomiting and diarrhea. Patient reported she [...] Resource Strain: Low Risk (06/20/2024) Received from [facility] Medical Overall Financial Resource Strain [...] min Stress: Patient Unable To Answer (08/03/2024) [place] [employer] - Occupational Stress Questionnaire Feeling of Stress : Patient unable to answer Social Connections: Unknown (08/03/2024) Social Connection and Isolation Panel [NHANES] Frequency of Communication with Friends and Family: Patient unable to answer Frequency of Social Gatherings with Friends and Family: Patient unable to answer Attends Catholic Services: Patient unable to answer Active Member of Clubs or Organizations: Patient unable to answer Attends Club or Organization Meetings: Never Marital Status: Patient unable to answer Recent Concern: Social Connections - Moderately Isolated (06/20/2024) Received from [facility] Medical Social Connection and Isolation Panel [NHANES] Frequency of Communication with Friends and Family: More than three times a week Frequency of Social Gatherings with Friends and Family: Once a week Attends Catholic Services: More than 4 times per year [...] mgmt was pursued: - inpatient admission to [facility] tele - check stool studies and cdiff, [...] - DO NOT do CPR, intubation] [_] [DNR-SENIOR MOBILE APPLICATION DEVELOPER - Comfort care only] [_] DNR form [...] and/or family/surrogate. Shivani Dimas PA-C [facility] Cosigned by Abbi Long DO at 08/03/2024 [...] or regular rigidity documented in this encounter [facility] [employer] 08-03-2024 Plan of care note Problem: Potential for Compromised Skin Integrity Goal: Skin Integrity is Maintained or Improved 08/03/2024 0842 by Lima Saenz RN Outcome: Progressing 08/03/2024 0842 by Lima Saenz RN Outcome: Progressing Problem: Potential for Compromised Skin Integrity Goal: Nutritional status is improving 08/03/2024 0842 by Lima Saenz RN Outcome: Progressing 08/03/2024 0842 by Lima Saenz RN Outcome: Progressing [facility] [employer] 08-03-2024 Plan of care note Problem: Knowledge Deficit Goal: Patient/family/caregiver demonstrates understanding of disease process, treatment plan, medications, and discharge instructions Outcome: Progressing Problem: Potential for Compromised Skin Integrity Goal: Skin Integrity is Maintained or Improved Outcome: Progressing [facility] [employer] 08-03-2024 Emergency department Note Pt placed in [facility] [employer] 08-03-2024 Emergency department Note Pt placed in [...] who presents to the emergency department from [facility] for acute onset nausea/vomiting/diarrhea x 3 episodes that began 45 minutes prior to arrival. No blood in emesis or diarrhea. Given single dose of Zofran by [facility] staff following first episode but subsequently soon [...] 45 minutes prior to ED transport for [facility]. group home reports a second resident with similar symptoms earlier today. No known flu or COVID exposures. Patient denying other flu or COVID symptoms such as headache, myalgias, fevers, congestion, cough. Nursing Notes were reviewed. Limitations to history: None Outside historians: group home staff (Jabari) REVIEW OF SYSTEMS Review of [...] Resource Strain: Low Risk (06/20/2024) Received from [facility] Medical Overall Financial Resource Strain (CARDIA) Difficulty of Paying Living Expenses: Not very hard Food Insecurity: No Food Insecurity (07/09/2024) Received from [facility] Hunger Vital Sign Worried About Running Out of Food in the Last Year: Never true Ran Out of Food in the Last Year: Never true Transportation Needs: No Transportation Needs (07/09/2024) Received from [facility] PRAPARE - Transportation Lack of Transportation (Medical): No Lack of Transportation (Non-Medical): No Physical Activity: Inactive (04/04/2024) Exercise Vital Sign Days of Exercise per Week: 0 days Minutes of Exercise per Session: 0 min Stress: No Stress Concern Present (06/19/2024) Received from [facility] Is[employer] of Occupational Health - Occupational Stress Questionnaire Feeling of Stress : Not at all Social Connections: Moderately Isolated (06/20/2024) Received from [facility] Medical Social Connection and Isolation Panel [NHANES] Frequency of Communication with Friends and Family: More than three times a week Frequency of Social Gatherings with Friends and Family: Once a week Attends Catholic Services: More than 4 times per year Active Member of Clubs or Organizations: No Attends Club or Organization Meetings: Never Marital Status: Intimate Partner Violence: Not At Risk (06/19/2024) Received from [facility] Medical Domestic Abuse Assessment Do you feel safe in your relationships at home?: Yes Physical Abuse: Denies Verbal Abuse: Denies Housing Stability: Low Risk (07/09/2024) Received from [facility] Housing Stability Vital Sign Unable to Pay [...] No bowel dilatation Report Dictated on Workstation: [employer] Electronically Signed By: Ming Fry MD Electronically Signed Date/Time: 08/03/2024 4:05 AM EST XR chest 1 view Final Result No acute abnormality Report Dictated on Workstation: [employer] Electronically Signed By: Ming Fry MD Electronically [...] In compliance with this authorization, please visit www.fda.gov/media/723520/download or www.fda.gov/media/516089/download to access the applicable information sheets. LIPASE [...] who presents to the emergency department from [facility] for acute onset nausea/vomiting/diarrhea x 3 episodes that began 45 minutes prior to arrival. No blood in emesis or diarrhea. Given single dose of Zofran by [facility] staff following first episode of emesis but [...] 45 minutes prior to ED transport for [facility]. group home reports a second resident with similar symptoms [...] baseline. Patient admitted to medical service at [facility] under Dr. Parrish. ED Medications managed: [...] 0406) FINAL IMPRESSION 1. Aspiration pneumonitis (CMS/HCC) ([facility]) 2. Vomiting and diarrhea 3. LORENZA (acute kidney injury) ([facility]) DISPOSITION Observation 08/03/2024 04:20:39 AM [...] DO 08/03/24 0422 documented in this encounter [facility] 08-03-[address] and ED xray notified that patient is ready [facility] 08-03-2024 Physician Emergency department Note EMERGENCY [...] who presents to the emergency department from [facility] for acute onset nausea/vomiting/diarrhea x 3 episodes that began 45 minutes prior to arrival. No blood in emesis or diarrhea. Given single dose of Zofran by [facility] staff following first episode but subsequently soon [...] 45 minutes prior to ED transport for [facility]. group home reports a second resident with similar symptoms earlier today. No known flu or COVID exposures. Patient denying other flu or COVID symptoms such as headache, myalgias, fevers, congestion, cough. Nursing Notes were reviewed. Limitations to history: None Outside historians: group home staff (Jabari) REVIEW OF SYSTEMS Review of Systems Negative except per HPI PAST MEDICAL HISTORY Past Medical History: Diagnosis Date Arrhythmia PAF Asthma Chronic kidney disease COPD (chronic obstructive pulmonary disease) (HCC) DVT (deep venous thrombosis) (HCC) Essential hypertension 03/07/2020 GERD (gastroesophageal reflux disease) Hiatal hernia IBS (irritable bowel syndrome) Pure hypercholesterolemia 03/07/2020 PVD (peripheral vascular disease) ([facility]) Stroke (HCC) SURGICAL HISTORY Past [...] Resource Strain: Low Risk (06/20/2024) Received from [facility] Medical Overall Financial Resource Strain (CARDIA) Difficulty of Paying Living Expenses: Not very hard Food Insecurity: No Food Insecurity (07/09/2024) Received from [facility] Hunger Vital Sign Worried About Running Out of Food in the Last Year: Never true Ran Out of Food in the Last Year: Never true Transportation Needs: No Transportation Needs (07/09/2024) Received from [facility] PRAPARE - Transportation Lack of Transportation (Medical): No Lack of Transportation (Non-Medical): No Physical Activity: Inactive (04/04/2024) Exercise Vital Sign Days of Exercise per Week: 0 days Minutes of Exercise per Session: 0 min Stress: No Stress Concern Present (06/19/2024) Received from [facility] [employer] of Occupational Health - Occupational Stress Questionnaire Feeling of Stress : Not at all Social Connections: Moderately Isolated (06/20/2024) Received from [facility] Medical Social Connection and Isolation Panel [NHANES] Frequency of Communication with Friends and Family: More than three times a week Frequency of Social Gatherings with Friends and Family: Once a week Attends Catholic Services: More than 4 times per year Active Member of Clubs or Organizations: No Attends Club or Organization Meetings: Never Marital Status: Intimate Partner Violence: Not At Risk (06/19/2024) Received from [facility] Medical Domestic Abuse Assessment Do you feel safe in your relationships at home?: Yes Physical Abuse: Denies Verbal Abuse: Denies Housing Stability: Low Risk (07/09/2024) Received from [facility] Housing Stability Vital Sign Unable to Pay [...] No bowel dilatation Report Dictated on Workstation: [employer] Electronically Signed By: Ming Fry MD Electronically Signed Date/Time: 08/03/2024 4:05 AM EST XR chest 1 view Final Result No acute abnormality Report Dictated on Workstation: [employer] Electronically Signed By: Ming Fry MD Electronically [...] In compliance with this authorization, please visit www.fda.gov/media/506535/download or www.fda.gov/media/313867/download to access the applicable information sheets. LIPASE [...] who presents to the emergency department from [facility] for acute onset nausea/vomiting/diarrhea x 3 episodes that began 45 minutes prior to arrival. No blood in emesis or diarrhea. Given single dose of Zofran by [facility] staff following first episode of emesis but [...] 45 minutes prior to ED transport for [facility]. group home reports a second resident with similar symptoms [...] baseline. Patient admitted to medical service at [facility] under Dr. Parrish. ED Medications managed: [...] 0406) FINAL IMPRESSION 1. Aspiration pneumonitis (CMS/HCC) ([facility]) 2. Vomiting and diarrhea 3. LORENZA (acute kidney injury) ([facility]) DISPOSITION Observation 08/03/2024 04:20:39 AM [...] Medicine Provider Mariana King DO 08/03/24 0422 [facility] 08-01-2024 Instructions Savana Lopez MD - 08/01/2024 1:06 PM EST - Continue Pred forte 4x / day right eye - Stop Cipro - Stop Brimonidine - Continue erythromycin antibiotic ointment as needed - Continue Atropine daily RIGHT eye - Continue Timolol 2x / day RIGHT EYE documented in this encounter [facility] 08-01-2024 Note HNO ID: [id number] Author: SAVANA LOPEZ MD Service: ? 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 [facility] 08-01-2024 History of Present illness [...] to HTN (SBP 199/99 at presentation to [facility]) and anticoagulation that led to angle closure [...] its relevant components. documented in this encounter [facility] 07-30-2024 Note HNO ID: [id number] Author: JOHN PHELAN MD Service: ? Author [...] agree with all of its relevant components. [facility] 07-30-2024 Note HNO ID: [id number] Author: JOHN PHELAN MD Service: ? Author [...] agree with all of its relevant components. [facility] 07-27-2024 Instructions Nicolas Sahu MD [...] Ciprofloxacin (flores cap) 4x daily Atropine (registered radiologic technologist) 1x daily Continue timolol (yellow cap) 2x [...] C Trouble breathing Contact Dr. Savana Lopez [phone] from 8am-5pm During non-business hours, please call [phone] or ext [id number] and ask for the eye doctor assistant operations manager. documented in this encounter [facility] 07-27-2024 Note HNO ID: [id number] Author: NICOLAS SAHU MD Service: ? Author [...] scheduled Nicolas Sahu MD Vitreoretinal Surgery Fellow [facility] 07-27-2024 History of Present illness [...] Vitreoretinal Surgery Fellow documented in this encounter [facility] 07-27-2024 Note HNO ID: [id number] Author: MIKHAIL NICHOLS APRN.SHACTOR Service: ? Author Type: Nurse Senior Project Manager Type: Anesthesia Procedure Notes Filed: 07/27/2024 11:25 Note Text: ANESTHESIOLOGY PROCEDURE NOTE Airway General Information Procedure Start Time/Medication Administration: 07/27/2024 11:21 AM Procedure End Time: 07/27/2024 11:24 AM Staffing Anesthesiologist: Robinson Brunner MD SHACTOR: Mikhail Nichols APRN.SHACTOR Performed by: anesthesiologist and SHACTOR Indications and Patient Condition Indications for airway management: anesthesia Preoxygenated: yes Patient position: sniffing Method: asleep Final Airway Details Final airway type: supraglottic airway Number of attempts at approach: 1 Final Supraglottic Airway: LMA Classic Size 4 Seal Adequate: yes Failed airway: no Unrecognized esophageal intubation: no SIGNATURE: Mikhail Nichols APRN.SHACTOR PATIENT NAME: Mel Castillo DATE: July 27, 2024 TIME: 11:24 AM CSN: [id number] [facility] 07-24-2024 Note Date of Procedure 07/23/2024. Victim Advocate Information Guest Services Lead: WESLEY. Start time: 10:44 AM. No view. In wheelchair. Unable to get low enough for photo in downgaze without discomfort. Notes Hazy view, VH; choroidals; possible RD [facility] 07-24-2024 Note Date of Procedure 07/23/2024. Victim Advocate Information STEWART Donovan CDOS 07/23/2024 11:24 AM [...] - Decrease atropine daily right eye (registered radiologic technologist) - Continue prednisolone QID right eye (pink [...] than 30 days before your surgery. My certified surgical technologist will be contacting you to schedule this appointment. Your exact time of surgery will not be determined until the day before surgery. My certified surgical technologist will call you the day before your surgery to advise you what time to arrive at the Surgery [facility] on the first floor at the [facility]. My certified surgical technologist is Gaston, her number is [phone] Please do no wear contact lenses. We [...] fellow. It will be at the [facility] on the 2nd floor. We will review [...] Regine Gan in the Pre-anesthesia Consultation Clinic ([phone]) to get instructions on their use before [...] call Regine Gan or a Pre-Anesthesia Testing engineering team supervisor at [phone]. documented in this encounter [facility] 07-23-2024 Note HNO ID: [id number] Author: SAVANA LOPEZ MD Service: ? 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 [facility] 07-23-2024 History of Present illness [...] to HTN (SBP 199/99 at presentation to [facility]) and anticoagulation that led to angle closure [...] its relevant components. documented in this encounter [facility] 07-18-2024 Note HNO ID: [id number] Author: JACI JUAREZ RN Service: Nursing Author Type: Registered Nurse Type: Progress Notes Filed: 07/18/2024 14:08 Note Text: Report given to nurse at [facility]. Transport running behind schedule. [facility] 07-16-2024 Note HNO ID: [id number] Author: MICHAEL SOARES MD Service: Ophthalmology Author Type: Resident Type: Plan of Care Filed: 07/16/2024 21:02 Note Text: Patient evaluated today at [facility] by retina attending Dr. Lopez. Assessment/plan [...] choroidals (not yet appositional) - Evaluated at [facility] 07/12/24 with intense nausea and multiple episodes [...] be admitted for this but may need chcf facility due to limited vision in her monocular eye; she has a very poor prognosis; there is no guarantee surgery will improve her vision but need to wait for any possible surgery for more liquefaction; maybe could do 07/31/24? - I will see her in 1 week for repeat B-scan OD / Optos OD" [facility] 07-16-2024 Note HNO ID: [id number] Author: ALAINA TIPTON RN Service: ? Author Type: Registered Nurse Type: Progress Notes Filed: 07/16/2024 19:27 Note Text: At 15:00 PM, Per Doctor Samk, place connector to Call Light for the patient. Clip placed onto the Call Light for patient to reach. Sign placed onto the patient's door to set patient up to eat, and assist feed. Doctor Samk, on the division, and aware. [facility] 07-16-2024 Note HNO ID: [id number] Author: TRACEY NANCE RN Service: Care Management Author Type: Registered Nurse Type: Care Mgt Progress Note Filed: 07/16/2024 16:49 Note Text: CARE MANAGEMENT PROGRESS NOTE SERVICE DATE: 07/16/2024 SERVICE TIME: 1:04 PM LOS: 9 days Post-Acute Discharge Planning Patient Goal(s): Increase strength [place] of Choice Explained: Discharge Planning Participant(s): Patient/Family Comments: Anticipated # of Days Until Discharge: 0 Transport at Discharge: Needs Prior to Discharge: Needs Prior to Discharge: OT/PT Evaluation Post-Acute Discharge Plan: Discharge to [facility] per [facility]OC. Await updated PT for pre cert initiation. SIGNATURE: Tracey Nance RN PATIENT NAME: Mel Castillo DATE: July 16, 2024 TIME: 1:04 PM [facility] 07-16-2024 Note Date of Procedure 07/16/2024. Victim Advocate Information Guest Services Lead: Arin Vital. Start time: 8:56 AM. Stop time: 8:56 AM. 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 Victim Advocate Information STEWART Donovan 07/16/2024 9:34 AM . [...] choroidals (not yet appositional) - Evaluated at [facility] 07/12/24 with intense nausea and multiple episodes [...] be admitted for this but may need chcf facility due to limited vision in her [...] its relevant components. documented in this encounter [facility] 07-16-2024 Note HNO ID: [id number] Author: SAVANA LOPEZ MD Service: ? Author [...] choroidals (not yet appositional) - Evaluated at [facility] 07/12/24 with intense nausea and multiple episodes [...] to HTN (SBP 199/99 at presentation to [facility]) and anticoagulation that led to angle closure [...] be admitted for this but may need chcf facility due to limited vision in her [...] of its relev (more content not included)... [facility] 07-16-2024 Note HNO ID: [id number] Author: BRIANA PRITCHARD MD Service: General Internal Medicine Author Type: Physician Type: Progress Notes Filed: 07/16/2024 14:26 Note Text: Internal Medicine - Dae Miranda Progress Note Patient Name: Mel Castillo Patient Location: H060 031/[id number] Admission Date: 07/07/2024 Length of Stay: 9 Primary Service: DAE Miranda Staff: Briana Pritchard MD Primary Service: Dae Miranda INTERVAL HISTORY: - No acute events overnight. Bradycardic to 50s overnight but this AM HDS and afebrile - This AM seen by ophthalmology at [facility] appointment Objective MEDICATIONS: Current Facility-Administered Medications [...] % Max: 99 % Pain Level: 8 (07/15/243) Physical Exam not performed this AM as patient away from room. Lines, Drains, and Airways Line Duration Peripheral 07/13/24 1458 Left Antecubital 24 Gauge 2 days Drain Duration External Collection Device 07/15/24 1000 [facility] <1 day Intake/Output 07/12/24 0700 - 07/13/24 0659 07/13/24 0700 - 07/14/24 0659 07/14/24 0700 - 07/15/24 0659 07/15/24 0700 - 07/16/24 0659 Intake (ml) 675 200 0 480 Output (ml) -- 0 -- -- Net (ml) 675 200 0 480 Last Weight: 68.9 kg (152 lb) (07/15/24 1746) Admit Weight: 68.9 kg (152 lb) (07/15/24 [...] PMH of COPD (more content not included)... [facility] 07-15-2024 Note HNO ID: [id number] Author: OTILIO GERBER MD Service: Ophthalmology Author [...] BRING PATIENT DOWN FOR FOLLOW UP AT [facility] - Post-op precautions reviewed, including: Signs and symptoms of endophthalmitis, and retinal detachment warning signs reviewed, including increasing floaters, flashes or changes in peripheral vision. [facility] 07-15-2024 Note HNO ID: [id number] Author: BRIANA PRITCHARD MD Service: General Internal Medicine Author Type: Physician Type: Progress Notes Filed: 07/15/2024 12:59 Note Text: Internal Medicine - Dae Miranda Progress Note Patient Name: Mel Castillo [address] Admission Date: 07/07/2024 Length of Stay: 8 Primary Service: DAE Miranda Staff: Briana Pritchard MD Primary Service: Dae Miranda INTERVAL HISTORY: - NAEO. - Afebrile. VSS. - This AM: Unable to see objects, but able to see light/dark. Pain is significantly improved after procedure. Now 3/10. - Denies nausea/vomiting. Reports nausea only seems [...] last 24h Temp: 36.7 ?C (98.1 ?F) (07/15/24 0433) Temp Min: 36.6 ?C (97.9 ?F) Max: [...] 9.1 9.3 9.3 (more content not included)... [facility] 07-14-2024 Note HNO ID: [id number] Author: BRIANA PRITCHARD MD Service: Hospital Medicine Author Type: Physician Type: Progress Notes Filed: 07/14/2024 13:37 Note Text: Internal Medicine - Dae Miranda Progress Note Patient Name: Mel Castillo Patient [...] last 24h Temp: 36.6 ?C (97.9 ?F) (07/14/24941) Temp Min: 36.3 ?C (97.3 ?F) Max: [...] Castillo is a (more content not included)... [facility] 07-14-2024 Note HNO ID: [id number] Author: NICOLAS SAHU MD Service: Ophthalmology Author [...] choroidals (not yet appositional) - Evaluated at [facility] 07/12/24 with intense nausea and multiple episodes [...] to HTN (SBP 199/99 at presentation to [facility]) that caused angle closure and elevated IOP [...] vision. Nicolas Sahu MD Vitreoretinal Surgery Fellow [facility] 07-13-2024 Note HNO ID: [id number] Author: MARCIA MARTINS APRN.SHACTOR Service: ? Author Type: Nurse Senior Project Manager Type: Anesthesia Procedure Notes Filed: 07/13/2024 12:43 Note Text: ANESTHESIOLOGY PROCEDURE NOTE Airway General Information Procedure Start Time/Medication Administration: 07/13/2024 12:28 PM Procedure End Time: 07/13/2024 12:42 PM Patient location during procedure: OR Timeout Performed Pre-procedure: timeout performed Consent Obtained: Yes Patient identity confirmed: arm band, care engineering team supervisor and patient Staffing SHACTOR: Marcia Martins, HUB LEAD.SHACTOR Performed by: SHACTOR Indications and Patient Condition Indications for airway management: anesthesia Preoxygenated: yes anesthesia circuit Method: sleep Difficult Mask: No Final Airway Details Final airway type: supraglottic airway Number of attempts at approach: 1 Final Supraglottic Airway: Supraglottic airway: ambu auraonce. Size 4 Seal Adequate: yes Failed airway: no Unrecognized esophageal intubation: no Airway not difficult Comments atraumatic SIGNATURE: Marcia Martins, SEBASTIAN.SHACTOR PATIENT NAME: Mel Castillo DATE: July 13, 2024 TIME: 12:42 PM CSN: [id number] [facility] 07-13-2024 Note HNO ID: [id number] Author: FELICIA LEVY MD Service: General Internal [...] of vision now s/p laser iridotomy at [facility] then trasnferred to [facility] for further management. S/p multiple [...] Dae Miranda Progress Note Patient Name: Mel Castillo Patient [...] mg ORAL DAILY (more content not included)... [facility] 07-12-2024 Note HNO ID: [id number] Author: TRACEY NANCE RN Service: Care Management Author Type: Registered Nurse Type: Care Mgt Progress Note Filed: 07/12/2024 16:50 Note Text: CARE MANAGEMENT PROGRESS NOTE SERVICE DATE: 07/12/2024 SERVICE TIME: 4:46 PM LOS: 5 days Post-Acute Discharge Planning Patient Goal(s): Increase strength [place] of Choice Explained: Discharge Planning Participant(s): Patient/Family Comments: Anticipated # of Days Until Discharge: 0 Transport at Discharge: Needs Prior to Discharge: Post-Acute Discharge Plan: Await SNF choices spoke w/ daughter in law Fidel Garcia sent to [facility] yesterday. This CM reached out to [facility] via email for choices. Daughter In law cannot recall selections. covering CM will need to reach out to [facility] tomorrow for selections that were emailed to her. SIGNATURE: Tracey Nance RN PATIENT NAME: Mel Castillo DATE: July 12, 2024 TIME: 4:46 PM [facility] 07-12-2024 Note Date of Procedure 07/12/2024. Victim Advocate Information CHAR Veliz ROUB 07/12/2024 12:15 PM . Notes B scan OD: From wheelchair. Patient vomiting during this visit. Best images possible. 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 Possible increased height maximum now at 12:00 measuring 10.0 mm. 2) Not able to assess for mobility today due to patient discomfort 3) SRF over choroidals in three quadrants. [facility] 07-12-2024 Note Date of Procedure 07/12/2024. Victim Advocate Information Guest Services Lead: JACQUELINE. Imaging Comments: Limited exam due to patient discomfort-best images possible . Notes Worsening choroid detachments [facility] 07-12-2024 Note HNO ID: [id number] Author: THOMAS SCHMITZ MD Service: ? Author [...] choroidals (not yet appositional) - Evaluated at [facility] 07/12/24 with intense nausea and multiple episodes [...] to HTN (SBP 199/99 at presentation to [facility]) that caused angle closure and elevated IOP [...] Resident, PGY-[address] Phelan [facility] 07-12-2024 History of Present illness [...] choroidals (not yet appositional) - Evaluated at [facility] 07/12/24 with intense nausea and multiple episodes [...] to HTN (SBP 199/99 at presentation to [facility]) that caused angle closure and elevated IOP [...] with Dr. Phelan documented in this encounter [facility] 07-12-2024 Note HNO ID: [id number] Author: FELICIA LEVY MD Service: General Internal [...] of vision now s/p laser iridotomy at [facility] then trasnferred to [facility] for further management. S/p multiple [...] possible dispo to SNF or home with [facility] (challenging given multiple daily eye drops and medications) - Rest per excellent note by resident Signature: Felicia Levy MD Date: 07/12/2024 Time: 1:27 PM Internal Medicine - Dae Miranda Progress Note Patient Name: Mel Castillo Patient [...] ORAL BID HYDROmorpho (more content not included)... [facility] 07-11-2024 Note HNO ID: [id number] Author: FELICIA LEVY MD Service: General Internal [...] of vision now s/p laser iridotomy at [facility] then trasnferred to [facility] for further management. S/p multiple [...] Dae Miranda Progress Note Patient Name: Mel Castillo [id number] Admission Date: 07/07/2024 Length of Stay: 4 [...] H PRN AL (more content not included)... [facility] 07-10-2024 Note HNO ID: [id number] Author: FELICIA LEVY MD Service: General Internal [...] of vision now s/p laser iridotomy at [facility] then trasnferred to [facility] for further management. S/p multiple [...] Dae Miranda Progress Note Patient Name: Mel Castillo Patient [...] Range in last (more content not included)... [facility] 07-09-2024 Note HNO ID: [id number] Author: TRACEY NANCE RN Service: Care Management [...] Relation: Other Admission Status: Inpatient Insurance Provider[facility] Discharge Planning requested by: Per Department Practice Potential Transition Plans Home Care Advance Directives Current Advance Directive: Health Care Power of Erp Consultant In Chart: Yes Up To Date and Valid: Yes Current Living Arrangements and Support Lives with: Alone Type of Residence: Mobile Home Support: Friends/neighbors, Family members How do you manage to accomplish the following: Independent: Ambulation;Bathe/Shower;Dress;Angélica g to the bathroom Needs Assistance: Meals/Meal Prep;Medication Management;Transportation to appointments/community Current Services/Equipment Discharge Planning Patient Goal(s): Increase strength Poynette of Choice Explained: [place] of Choice Given: Yes Level of Care Discussed: Home Care Are you interested in bedside delivery of your medications? Yes Discharge Planning Participant(s): Caregiver;Family Patient/Family Comments: Fidel Hdez (Other) Caregiver Assessment: Caregiver is ready, willing and able to meet the patient's needs as recommended by the inter-professional team: (friends) Transport at Discharge: Transportation Arrangements: Car Destination: [address] [place] [phone] Needs Prior to Discharge: Post-Acute Discharge Plan: Anticipate DC home with C 24-48 hours. HC referrals placed . Await OT evaluation. Patient lives alone in trailer , There are 4 steps to entrance, Using rolator prior to admission. Patient independent with ADL and assist with iADL prior to admission.Patient receives meals on wheels. Family transport to appointments and can provide health sciences department chair assist. Family transport home. This [...] DATE: July 09, 2024 TIME: 4:07 PM [facility] 07-09-2024 Note HNO ID: [id number] Author: NADIA VIDAL ? Service: Pharmacy Author Type: Clay Plant Treater Type: Plan of Care Filed: 07/09/2024 12:31 Note Text: Insurance investigation completed Patient has active prescription insurance: Yes - Patient's insurance is in-network with [facility] Insurance loaded into [place]: Yes Test claim was completed to verify insurance is active: Successful Any questions, please reach out to your medication early childhood education coordinator. [facility] 07-09-2024 Note HNO ID: [id number] Author: GISSELL POPE RPh Service: Pharmacy Author Type: Pharmacist Type: Plan of Care Filed: 07/09/2024 12:32 Note Text: PHARMACY MEDICATION REVIEW Patient Name: Mel Castillo : 1940 The following medications were updated within the [employer] medication list: Medications ADDED to [employer] [employer] medication list Furosemide 40 mg prn swelling Medications CHANGED on [employer] medication list Lisinopril 10 mg changed to 40 mg Increased from 5 mg daily to 40 mg daily on last hospital discharge Medications REMOVED from [employer] medication list Albuterol HFA PRN Lidocaine 4% [...] Yes Completed by: Gissell Pope RPh All [employer] medications addressed by LIP Patient interested in Bedside Delivery Services or using [facility] OP Pharmacy at discharge? Yes. Discharge Pharmacy Updated Preferred outpatient pharmacy: [facility]- [facility]/pharmacy #[id number] [place] [address] [address] [facility] [phone] [place] [address] [facility] Allergies: Percocet [Oxycodone* Itching Prior [...] Inject 0.7 mL subcutaneously every 12 hours. onfqrotpfas-gpxfsaqst-sugmzmte (TRELEGY ELLIPTA) 100-62.5-25 mcg inhalation powder 07/06/2024 [...] Drop (MYDRIACYL) None recorded 1 Gissell Pope [facility] 07/09/2024 [facility] 07-09-2024 Note HNO ID: [id number] Author: OTILIO GERBER MD Service: ? Author [...] to HTN (SBP 199/99 at presentation to [facility]) that caused angle closure and elevated IOP [...] Follow up with Dr. Lopez Monday 07/16 [facility] eye clinic -Can continue anticoagulation -Patient [...] NLP vision Otilio Gerber MD Ophthalmology Resident [facility] Patient seen and discussed with Dr. Phelan [facility] 07-09-2024 History of Present illness [...] to HTN (SBP 199/99 at presentation to [facility]) that caused angle closure and elevated IOP [...] Follow up with Dr. Lopez Monday 07/16 [facility] eye clinic -Can continue anticoagulation -Patient [...] NLP vision Otilio Gerber MD Ophthalmology Resident [facility] Patient seen and discussed with Dr. Phelan documented in this encounter [facility] 07-09-2024 Note HNO ID: [id number] Author: FELICIA LEVY MD Service: General Internal [...] of vision now s/p laser iridotomy at [facility] then trasnferred to [facility] for further management. S/p multiple [...] Dae Miranda Progress Note Patient Name: Mel Castillo Patient Location: [place] [id number] Admission Date: 07/07/2024 Length of Stay: 2 [...] (ml) -2 350 (more content not included)... [facility] 07-08-2024 Note HNO ID: [id number] Author: FELICIA LEVY MD Service: Hospital Medicine [...] of vision now s/p laser iridotomy at [facility] then trasnferred to [facility] for further management. Plan: - [...] Dae Miranda Progress Note Patient Name: Mel Castillo Patient Location: [place] [address]/H060-31 Admission Date: 07/07/2024 Length of Stay: 1 [...] 07/07/24 1853 12 (more content not included)... [facility] 07-07-2024 Note HNO ID: [id number] Author: JARED GILMORE MD Service: ? Author [...] components. Jared Gilmore MD Vitreoretinal Surgery Fellow [facility] 07-07-2024 History of Present illness [...] with Dr. Gilmore documented in this encounter [facility] 07-07-2024 Note [facility] 07-07-2024 Hospital course Narrative Discharge Summary [...] 03/07/2020 PVD (peripheral vascular disease) (HCC) Stroke ([facility]) Procedures: multiple peripheral iridotomies Hospital [...] Ellipta 100-62.5-25 MCG/ACT aerosol powder Generic drug: Ggnqudouter-Xsgrvsdrx-Ahvdqh STOP taking these medications albuterol 108 (90 [...] solution Recommended Follow-up: Tre Lombardi MD [address] [facility] [address] [facility] [address] Call in 2 month(s) 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 [facility] 07-07-2024 Nurse Note Report called to [facility]. This RN called Protective Services to try and locate pts lost glasses from 07/05/2024. Glasses that match the description are in lost and found. Will attempt to see if glasses are a match. documented in this encounter [facility] 07-07-2024 Note Formatting of this n ote might be different from the original. Care Management Progress Note DC plan - Transfer to [facility]. Received message from RN who reports pt has a bed at the [facility] and dc orders to go today and is requesting transportation be set up AIDAN. Transportation set up through roundtrip via cot with [employer] for 10:30am. RN, pt and pt's dtr Fidel notified of dc plan and transportation time. No add'l needs for dc noted or identified at this time. Length of Stay (Days): 0 GMLOS: 2.3 [facility] 07-07-2024 Note Formatting of this n ote might be different from the original. Care Management Progress Note DC plan - Transfer to [facility]. Received message from RN who reports pt has a bed at the [facility] and dc orders to go today and is requesting transportation be set up AIDAN. Transportation set up through roundtrip via cot with [employer] for 10:30am. RN, pt and pt's dtr Fidel notified of dc plan and transportation time. No add'l needs for dc noted or identified at this time. Length of Stay (Days): 0 GMLOS: 2.3 [facility] [employer] 07-07-2024 Miscellaneous Notes Care Management Progress Note DC plan - Transfer to [facility]. Received message from RN who reports pt has a bed at the [facility] and dc orders to go today and is requesting transportation be set up AIDAN. Transportation set up through roundtrip via cot with [employer] for 10:30am. RN, pt and pt's dtr [...] is working on this . With staff. [facility] she is agreeable to it if [...] - DO NOT do CPR, intubation] [_] [DNR-SENIOR MOBILE APPLICATION DEVELOPER - Comfort care only] [_] DNR form [was/was not] signed Summary of discussion: The patient health care POA/ surrogate is the following: Fidel STAPLETON ([facility]) I answered all the patient/family [...] with patient and/or family/surrogate. Silvio Peres MD [facility] care [facility] 07/05/2024, 1:18 PM documented in this encounter [facility] 07-07-2024 History of Present illness Narrative Nutrition rescreen completed. Chart reviewed. Patient to be monitored and followed by the diet graphics edit technician. Images from the original note were not included. PHYSICAL THERAPY [facility] Initial Evaluation Name/MRN: Mel Pop ([id number]) Evaluation Date: 07/06/2024 Date of : 1940 Admission Date: 07/05/2024 4:21 AM Age: 83 y.o. Room/Bed: W3-324/3-324 A Discharge Recommendation: Usp Facility Equipment Needed: (tbd) Assessment IMPRESSION: The [...] kidney disease COPD (chronic obstructive pulmonary disease) ([facility]) DVT (deep venous thrombosis) ([facility]) Essential hypertension 03/07/2020 GERD (gastroesophageal reflux disease) Hiatal hernia IBS (irritable bowel syndrome) Pure hypercholesterolemia 03/07/2020 PVD (peripheral vascular disease) ([facility]) Stroke ([facility]) Past Surgical History: Past Surgical [...] deep vessels of proximal lower extremity (HCC) 04/14/2024 Peripheral arterial disease ([facility]) 04/03/2024 Immunodeficiency due to conditions classified elsewhere ([facility]) 07/27/2023 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 ([facility]) 07/27/2023 Bilateral pneumonia 06/16/2022 COVID-19 06/16/2022 Hypothyroidism 06/16/2022 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[facility]) 06/16/2022 Cellulitis 05/18/2022 Nicotine use disorder 05/18/2022 Acute venous embolism and thrombosis of deep vessels of proximal end of right lower extremity ([facility]) 04/19/2024 Atrial fibrillation, unspecified type ([facility]) 04/19/2024 Irritable bowel syndrome with diarrhea 03/07/2020 Microscopic hematuria 03/07/2020 Left retinal detachment 03/07/2020 Hyperglycemia 03/07/2020 Osteopenia of left femoral neck 03/07/2020 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 03/07/2020 Seasonal allergies 03/07/2020 Chronic renal insufficiency, stage III (moderate) ([facility]) 03/07/2020 Major depression, single episode, in complete remission ([facility]) 03/07/2020 Gastroesophageal reflux disease without esophagitis 03/07/2020 Essential hypertension 03/07/2020 Pure hypercholesterolemia 03/07/2020 Overweight 03/07/2020 Psoriasis 03/07/2020 History of cerebrovascular accident 03/07/2020 Atrial fibrillation ([facility]) 03/07/2020 Chronic obstructive pulmonary disease ([facility]) 03/07/2020 Finger osteomyelitis, right ([facility]) 03/06/2020 Medical Precautions: No active [...] support system of friends and family Active Hedis Nurse: Prior Level of Function Prior Level of [...] of Care supervision is transferred to a [facility] Therapy Services Physical Therapist. Goals and/or treatment plan was established in collaboration with patient/family/other representatives. Hospitalist Progress Note 07/06/2024 Subjective: Admit Date: 07/05/2024 PCP: Jared Evans [facility]EF [facility]OSPITAL COURSE: Per admitting hospitalist's [...] (HCC) Stroke (HCC) LABS: CBC: Recent Labs 07/05/24 0435 07/06/24 [...] Henderson DO Division of Hospitalist Medicine [facility] documented in this encounter [facility] 07-06-2024 Nurse Note This RN called Protective Services to try and locate pts lost glasses from 07/05/2024. Glasses that match the description are in lost and found. Will attempt to see if glasses are a match. [facility] 07-06-2024 Telephone encounter Note TELEPHONE ENCOUNTER 07/06/2024 Patient with recent stroke and admitted to [facility] where she was noted to have elevated IOP with retinal detachment of the right eye by consult banana expert. She has a history of RD in [...] optos OU Ryan Elizondo MD Ophthalmology Resident [facility] Work Phone: 07-06-2024 Miscellaneous Notes TELEPHONE ENCOUNTER 07/06/2024 Patient with recent stroke and admitted to [facility] where she was noted to have elevated IOP with retinal detachment of the right eye by consult banana expert. She has a history of RD in [...] MD Ophthalmology Resident documented in this encounter [facility] 07-06-2024 Note Formatting of this n ote [...] is working on this . With staff. [facility] she is agreeable to it if goes home . [employer] 07-06-2024 Note Formatting of this n ote [...] is working on this . With staff. [facility] she is agreeable to it if goes home . [employer] 07-06-2024 Consult note Formatting of th is [...] referral to a retinal subspecialist at either [facility] or [facility] for repair of retinal detachment right eye (OD). Continue ophthalmic pressure lowering ophthalmic meds right eye (OD) until seen by retinal subspecialist. [employer] Phone: 07-06-2024 Consult note Formatting of th [...] referral to a retinal subspecialist at either [facility] or [facility] for repair of retinal detachment right eye [...] days. Associated Order(s): Inpatient consult to Endovascular Neurology--[facility] END[facility]ULAR [facility]UROLOG[facility] Inpatient consult to Endovascular Neurology--[facility]UROLOG[facility] Consult performed by: Helga Naik APRN - SKILLED LABORER Consult ordered by: Wm Nunes DO Reason [...] kidney disease, COPD (chronic obstructive pulmonary disease) ([facility]), DVT (deep venous thrombosis) ([facility]), Essential hypertension (03/07/2020), GERD (gastroesophageal reflux disease), Hiatal hernia, IBS (irritable bowel syndrome), Pure hypercholesterolemia (03/07/2020), PVD (peripheral vascular disease) ([facility]), and Stroke ([facility]). She has no past medical history of Cancer ([facility]) ([facility]), Cerebral artery occlusion with cerebral infarction ([facility]), CHF (congestive heart failure) ([facility]), Diabetes mellitus ([facility]), Hemodialysis patient ([facility]) ([facility]), blood clots, or MDRO (multiple [...] Name: Mel Pop Patient : 1940 Acct: [id number] Date of Admission: 07/05/2024 Room/Bed: 60/60 PCP: [...] Historical Provider, ergocalciferol (Vitamin D2) 1.25 MG (78432 UT) capsule Take 1.25 mg by mouth [...] 5 MG tablet Take as directed by [facility] Anticoagulation Clinic (90 tablets = [...] , Rfl: ergocalciferol (Vitamin D2) 1.25 MG (35872 UT) capsule, Take 1.25 mg by mouth [...] 5 MG tablet, Take as directed by [facility] Anticoagulation Clinic (90 tablets = [...] motor function: 0=Normal Total: 2 Pre-admission Modified Ross Score: 1 __ 0 No symptoms at [...] 4:46 AM EST. Report Dictated on Workstation: [employer] Electronically Signed By: Cirilo Ray DR Electronically [...] 4:46 AM EST. Report Dictated on Workstation: [employer] Electronically Signed By: Cirilo Ray DR Electronically [...] this patient's care. documented in this encounter [facility] 07-05-2024 Consult note Formatting of th [...] drops are started. Will continue to follow. [facility] 07-05-[address] Carlson at bedside. [facility] 07-05-[address] Carlson [...] to Maritza FRAGA Emergency Department Encounter Location: [facility] EMERGENCY DEPT Patient: Mel Pop : [...] 423 ms QTC Interval 418 ms P Gays 0 degrees QRS Gays 37 degrees T Wave Gays 29 degrees [place] Interval 0 ms Troponin, High Sensitivity, Serial, [...] IV. I discussed with Dr. Peres from [facility] hospitalist service who accepted [...] Given 07/05/24 0517) I am not the trailer technician of record. Dr. Nunes is the trailer technician of record. Final Impression 1. Vision loss of right eye 2. Acute intractable headache, unspecified headache type DISPOSITION Observation 07/05/2024 01:21:52 PM (Please note that portions of this note may have been completed with a voice recognition program. Efforts were made to edit the dictations but occasionally words are mis-transcribed.) Jhonatan Hernandez MD [facility] Jhonatan Hernandez MD 07/05/24 1322 documented in this encounter [facility] 07-05-2024 Note Formatting of this n [...] - DO NOT do CPR, intubation] [_] [DNR-SENIOR MOBILE APPLICATION DEVELOPER - Comfort care only] [_] DNR form [...] with patient and/or family/surrogate. Silvio Peres MD [facility] [employer] 07/05/2024, 1:18 PM [facility] 07-05-2024 Note Formatting of this n [...] - DO NOT do CPR, intubation] [_] [DNR-SENIOR MOBILE APPLICATION DEVELOPER - Comfort care only] [_] DNR form [was/was not] signed Summary of discussion: The patient health care POA/ surrogate is the following: DAYA Fidel Sanchez ([place]) I answered all the patient/family questions [...] with patient and/or family/surrogate. 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 History Obtained From: patient and patient's [id number] HISTORY OF PRESENT ILLNESS: Mel is a [...] kidney disease COPD (chronic obstructive pulmonary disease) ([facility]) DVT (deep venous thrombosis) ([facility]) Essential hypertension 03/07/2020 GERD (gastroesophageal reflux disease) Hiatal hernia IBS (irritable bowel syndrome) Pure hypercholesterolemia 03/07/2020 PVD (peripheral vascular disease) ([facility]) Stroke ([facility]) Past Surgical History: Past Surgical [...] Insecurity: No Food Insecurity (06/20/2024) Received from [facility] Medical Hunger Vital Sign Worried About Running Out of Food in the Last Year: Never true Ran Out of Food in the Last Year: Never true Transportation Needs: No Transportation Needs (07/02/2024) Received from [facility] Medical SDOH Transportation Source Has lack [...] No Stress Concern Present (06/19/2024) Received from [facility] of Occupational Health - Occupational Stress Questionnaire Feeling of Stress : Not at all Social Connections: Moderately Isolated (06/20/2024) Received from [facility] Social Connection and Isolation Panel [NHANES] Frequency of Communication with Friends and Family: More than three times a week Frequency of Social Gatherings with Friends and Family: Once a week Attends Catholic Services: More than 4 times per year Active Member of Clubs or Organizations: No Attends Club or Organization Meetings: Never Marital Status: Intimate Partner Violence: Not At Risk (06/19/2024) Received from [facility] Domestic Abuse Assessment Do you feel safe in your relationships at home?: Yes Physical Abuse: Denies [facility] Domestic Abuse - Type of Abuse: Not on file [facility] Domestic Abuse - Time Frame: Not on file [facility] Domestic Abuse - Signs and Symptoms: Not on file Verbal Abuse: Denies [facility] Domestic Abuse - Reported To: Not on file Housing Stability: Low Risk (06/20/2024) Received from [facility] Housing Stability Vital Sign Unable [...] the evening. ergocalciferol (Vitamin D2) 1.25 MG (99091 UT) capsule Take 1.25 mg by mouth [...] food.. pantoprazole (ProtoNix) 40 MG EC tablet Pedrolegy Ellipta 100-62.5-25 MCG/ACT aerosol powder warfarin (Coumadin) 5 MG tablet Take as directed by [facility] Anticoagulation Clinic (90 tablets = [...] 07/05/2024 [facility] 1940 [id number] Exam Date/Time: 07/05/2024 11:45 Procedure: MR BRAIN [...] 07/05/2024 [facility] 1940 [id number] Exam Date/Time: 07/05/2024 04:36 Procedure: CT HEAD [...] 07/05/2024 Patient Name: MEL POP : 1940 [facility]#: [id number] Exam Date/Time: 07/05/2024 04:36 Procedure: CT HEAD [...] 07/05/2024 Patient Name: [facility]EL [facility] 1940 [id number] Exam Date/Time: 07/05/2024 04:36 Procedure: CT PERFUSION [...] glucose meter Result Date: 07/05/2024 Performed by: [facility], [address] [place] [address] CLIA ID: [id number] Assessment / Plan Discussed management with the [...] Hospitalist Medicine [employer] Dictated using Dragon Naturally Speaking Medical Version 2.4 Proof read however unrecognized voice recognition errors may have occurred [employer] Work Phone: 07-05-2024 Note [employer] [facility] 07-05-2024 History and physical note Attending History and Physical Admit Date: 07/05/2024 PCP: Jared Evans MD CHIEF COMPLAINT: Loss of vision right eye, headache/eye pain, nausea, eye swelling Reason for Admission: 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 History Obtained From: patient and patient's [id number] HISTORY OF PRESENT ILLNESS: Mel is a [...] Resource Strain: Low Risk (06/20/2024) Received from [facility] Overall Financial Resource Strain (CARDIA) Difficulty of Paying Living Expenses: Not very hard Food Insecurity: No Food Insecurity (06/20/2024) Received from [facility] Hunger Vital Sign Worried About Running Out of Food in the Last Year: Never true Ran Out of Food in the Last Year: Never true Transportation Needs: No Transportation Needs (07/02/2024) Received from [facility] Transportation Source Has lack of transportation [...] No Stress Concern Present (06/19/2024) Received from [facility] of Occupational Health - Occupational Stress Questionnaire Feeling of Stress : Not at all Social Connections: Moderately Isolated (06/20/2024) Received from [facility] Medical Social Connection and Isolation Panel [NHANES] Frequency of Communication with Friends and Family: More than three times a week Frequency of Social Gatherings with Friends and Family: Once a week Attends Catholic Services: More than 4 times per year Active Member of Clubs or Organizations: No Attends Club or Organization Meetings: Never Marital Status: Intimate Partner Violence: Not At Risk (06/19/2024) Received from [facility] Domestic Abuse Assessment Do you feel safe in your relationships at home?: Yes Physical Abuse: Denies [facility] Domestic Abuse - Type of Abuse: Not on file [facility] Domestic Abuse - Time Frame: Not on file [facility] Domestic Abuse - Signs and Symptoms: Not on file Verbal Abuse: Denies [facility] Domestic Abuse - Reported To: Not on file Housing Stability: Low Risk (06/20/2024) Received from [facility] Medical Housing Stability Vital Sign [...] the evening. ergocalciferol (Vitamin D2) 1.25 MG (17535 UT) capsule Take 1.25 mg by mouth [...] 5 MG tablet Take as directed by [facility] Anticoagulation Clinic (90 tablets = [...] 07/05/2024 Patient Name: MEL POP : 1940 [facility]#: [id number] Exam Date/Time: 07/05/2024 04:36 Procedure: CT HEAD [...] 07/05/2024 Patient Name: MEL POP : 1940 [facility]#: [id number] Exam Date/Time: 07/05/2024 04:36 Procedure: CT HEAD [...] 07/05/2024 Patient Name: MEL POP : 1940 [facility]#: [id number] Exam Date/Time: 07/05/2024 04:36 Procedure: CT PERFUSION [...] glucose meter Result Date: 07/05/2024 Performed by: [facility], [address] [place] [address] CLIA ID: [id number] Assessment / Plan Discussed management with the [...] MD Division of Hospitalist Medicine Acute care [facility] Dictated using [employer] Medical Version 2.4 Proof read however unrecognized voice recognition errors may have occurred documented in this encounter [facility] [employer] 07-05-2024 Emergency department Note Provider notified of patient request for pain meds. [facility] [employer] 07-05-2024 Consult note Associated Order (s): IP [...] drops to be discontinued after 4 days. [facility] 07-05-2024 Consult note Associated Order (s): Inpatient consult to Endovascular Neurology--[facility] Inpatient consult to Endovascular Neurology--[facility]OLOG[facility] Consult performed by: Helga Naik APRN - SKILLED LABORER Consult ordered by: Wm Nunes DO Reason [...] kidney disease, COPD (chronic obstructive pulmonary disease) ([facility]), DVT (deep venous thrombosis) ([facility]), Essential hypertension (03/07/2020), GERD (gastroesophageal reflux disease), Hiatal hernia, IBS (irritable bowel syndrome), Pure hypercholesterolemia (03/07/2020), PVD (peripheral vascular disease) ([facility]), and Stroke ([facility]). She has no past medical history of Cancer ([facility]) ([facility]), Cerebral artery occlusion with cerebral infarction ([facility]), CHF (congestive heart failure) ([facility]), Diabetes mellitus ([facility]), Hemodialysis patient ([facility]) ([facility]), blood clots, or MDRO (multiple [...] . Personal review of: Imaging,Labs,Old Records},.},. [facility] Work Phone: 07-05-[address] Carlson at bedside [facility] 07-05-2024 Emergency department Note Patient is returning back to room 32 at this time with Jose, Medic. [facility] 07-05-2024 Emergency department Note Pt currently at eye clinic with RADHA Hinkle for emergent eye laser procedure. [facility] 07-05-2024 Note Pt currently at eye clinic with RADHA Hinkle for emergent eye laser procedure. [facility] 07-05-2024 Emergency department Note Pt emergently going to eye clinic. Pt being transported in wheelchair with trauma float RADHA Hinkle and Maritza FRAGA Pt being transported on zoll monitor and acls kit. [facility] 07-05-2024 Emergency department Note Ophthalmology at bedside [facility] 07-05-2024 Emergency department Note Report to Maritza FRAGA [facility] 07-05-2024 Consult note Associated Order (s): IP CONSULT TO STROKE TEAM STROKE TEAM NOTE Patient Name: Mel Pop Patient : 1940 Acct: [id number] Date of Admission: 07/05/2024 Room/Bed: 60/60 PCP: [...] Pure hypercholesterolemia 03/07/2020 PVD (peripheral vascular disease) ([facility]) Stroke (HCC) Past Surgical History: [...] Historical Provider, ergocalciferol (Vitamin D2) 1.25 MG (63968 UT) capsule Take 1.25 mg by mouth [...] EC tablet 07/18/23 Historical Provider, MD Mark oGmez 100-62.5-25 MCG/ACT aerosol powder 05/19/23 Historical Provider, warfarin (Coumadin) 5 MG tablet Take as directed by [facility] Anticoagulation Clinic (90 tablets = [...] , Rfl: ergocalciferol (Vitamin D2) 1.25 MG (85506 UT) capsule, Take 1.25 mg by mouth [...] 5 MG tablet, Take as directed by [facility] Anticoagulation Clinic (90 tablets = [...] to be involved in this patient's care. 1 Phone: 07-05-2024 Physician Emergency department Note Emergency Department Encounter Location: [facility] EMERGENCY DEPT Patient: Mel Pop : [...] 423 ms QTC Interval 418 ms P Gays 0 degrees QRS Gays 37 degrees T Wave Gays 29 degrees [place] Interval 0 ms Troponin, High Sensitivity, Serial, [...] IV. I discussed with Dr. Peres from [facility] hospitalist service who accepted the admit. Medications sodium chloride 0.9% (NS) flush 5-40 mL ( IntraVENous Not Given 07/05/24 0430) sodium chloride 0.9% (NS) flush 5-40 mL (has no administration in time range) sodium chloride 0.9 % infusion (has no administration in time range) sodium chloride 0.9 % infusion (50 mL/hr IntraVENous Rate/Dose Verify 07/05/24 8809) labetalol (Normodyne,Trandate) injection 10 mg (has no [...] Given 07/05/24 0517) I am not the trailer technician of record. Dr. Nunes is the trailer technician of record. Final Impression 1. Vision loss of right eye 2. Acute intractable headache, unspecified headache type DISPOSITION Observation 07/05/2024 01:21:52 PM (Please note that portions of this note may have been completed with a voice recognition program. Efforts were made to edit the dictations but occasionally words are mis-transcribed.) Jhonatan Hernandez MD [employer] Jhonatan Hernandez MD 07/05/24 1322 [facility] 06-19-2024 Note HNO ID: [id number] Author: JOSE GONZALEZ RPh Service: Pharmacy Author [...] with neuroendovascular for ICA aneurysm Jose Gonzalez [facility] Pager: Nora/Hailey chat 06/19/2024 1:31 PM Medication [...] ELLIPTA 100-62.5-25 mcg inhalation powder Generic drug: zwmyayfncih-tdgswgddv-jtoguuvr VITAMIN C 500 mg tablet Generic drug: [...] as: COUMADIN zinc oxide 20 % ointment [facility] 06-19-2024 Note HNO ID: [id number] Author: ROSLYN ROSE RN Service: Care Management [...] Arrangements: Ambulance Transportation Agency and Phone #:: [facility] ( [facility] ) [phone] / [phone] Date of Trip: 06/19/24 Time of Trip: 1800 Type of Service: BLS Non-emergency Geotechnical Department Manager Location: [facility] Destination: Taylor Patiñobraxton Das Financial Care Management Responsibility: None Handoff Communication: Handoff to: Specialty Grazing Examiner Specialty Grazing Examiner Name/Phone: Taylor Muir Additional Information: Patient has insurance precert [facility] at 6:00 PM. Spoke with patient at bedside and son José Miguel via phone who are aware and agreeable. Transfer envelope with chart. Care team aware via Epic chat. Discharge Information Row Name ED to Hosp-Admission (Current) from 06/10/2024 in [place] 81 NEURO/CARD Rehab Facility Agency [facility] SIGNATURE: Roslyn Rose RN PATIENT NAME: Mel Castillo DATE: June 19, 2024 TIME: 1:10 PM CONTACT #: [phone] [facility] 06-19-2024 Note HNO ID: [id number] Author: DON EDWARDS DO Service: Hospital Medicine Author Type: Physician Type: Progress Notes Filed: 06/19/2024 12:53 Note Text: DEPARTMENT OF HOSPITAL MEDICINE PROGRESS NOTE SERVICE DATE: 06/19/2024 SERVICE TIME: 10:10 AM Hospital Medicine/Primary Attending: Don Edwards DO NIGHT AND WEEKEND COVERAGE: [place] COVERAGE: From 7am - 7pm, please call [phone] After 7pm, please call cross cover pager #[phone] Subjective INTERVAL HPI: Pt seen and examined. [...] Forearm 22 Gauge -- days Peripheral 06/12/24426 [facility] Short Right Forearm 20 Gauge 7 days Reviewed lines and needs to be continued: REASONS: Difficulty in obtaining/maintaining access DATA: Diagnostic tests reviewed for today's visit: Most recent labs and imaging results. 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 [place]. Will need to follow up with neurology [...] -- 06/11/24 0730 vte current anticoag therapy (tx,pa) 06/11/24 0730 activity - mobilize patient ([place], [place]) VTE Prophylaxis: VTE prophylaxis appropriate Disposition: Acute Rehab Plan of care discussed with: Provider, RN, Patient SIGNATURE: Don Edwards DO PATIENT NAME: Mel Castillo DATE: June 19, 2024 TIME: 10:10 AM etx [id number] [facility] 06-18-2024 Note HNO ID: [id number] Author: ANABEL VEGA ? Service: Care Management Author Type: ? Type: Care Mgt Progress Note Filed: 06/18/2024 17:18 Note Text: [facility] PRECERT NOTE [employer] MEDICARE PPO approved Inpatient Rehab Facility for [facility]. Precert approved for dates: - 06/26/2024. For any additional questions regarding approvals, transport or care management needs, please contact the CM assigned to this patient in the Treatment Team. SIGNATURE: Anabel Vega DATE: June 18, 2024 TIME: 5:17 PM [facility] 06-18-2024 Note HNO ID: [id number] Author: MARK MINOR DO Service: Hospital Medicine Author Type: Physician Type: Progress Notes Filed: 06/18/2024 16:17 Note Text: DEPARTMENT OF HOSPITAL MEDICINE PROGRESS NOTE SERVICE DATE: 06/18/2024 SERVICE TIME: 4:06 PM Hospital Medicine/Primary Attending: Mark Minor DO NIGHT AND WEEKEND COVERAGE: After 7pm please page [phone] SUBJECTIVE: Patient seen examined at bedside. No [...] now event with subtherapeutic coumadin. [place]. Will need to follow up with neurology [...] Yes) Chronic atrial (more content not included)... [facility] 06-18-2024 Note HNO ID: [id number] Author: ROSLYN ROSE RN Service: Care Management Author Type: Registered Nurse Type: Care Mgt Progress Note Filed: 06/18/2024 12:32 Note Text: CARE MANAGEMENT PROGRESS NOTE SERVICE DATE: 06/18/2024 SERVICE TIME: 9:01 AM LOS: 7 days Chart reviewed. [facility] Will need precert and cot transport. CM to follow for transitional care planning. ADDENDUM at 10:20 AM- Spoke with patient at bedside and provided update on pending precert. Received message from [facility] that insurance is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 MCG/ACT aerosol powder Generic drug: Wpmpcilulfr-Hkcdicxhw-Rowtod STOP taking these medications Eliquis 5 MG tablet Generic drug: apixaban Where to Get Your Medications These medications were sent to [facility] [address] [place] [address] Hours: Tuesday to Tuesday 10 am to 6 pm oxyCODONE 5 MG immediate release tablet warfarin 5 MG tablet DIET: Adult diet Regular ACTIVITY: No restriction. COMPLEXITY OF FOLLOW UP: [x] Moderate Complexity: follow up within 7-14 calendar days (32470) [] Severe Complexity: follow up within 7 calendar days (27156) FOLLOW UP TESTING, PENDING RESULTS OR REFERRALS AT TRANSITIONAL CARE VISIT: [] Yes [x] No PENDING STUDIES: none DISPOSITION: Home with Home Health Care FACILITY/HOME CARE AGENCY NAME: [facility] Follow up with Kristyn Blankenship MD [address] [facility] [address] [place] [id number] Schedule an appointment as soon as possible for a visit [facility] clinic for INR check next [...] 04/13/2024, 2:20 PM documented in this encounter [facility] 04-13-2024 History of Present illness Narrative Images from the original note were not included. PHYSICAL THERAPY [facility] Treatment Note Name/MRN: Mel Pop ([id number]) Date of : 1940 Age: 83 y.o. Room/Bed: [facility] B Discharge Recommendation: Home with Home health [...] 1045 Minutes 13 (Gait) Christin Gu PT [facility] Anticoagulation Management Service ([facility]) Inpatient Warfarin Consult HPI: Mel [...] and adjust dose accordingly. 3. Will facilitate [facility] follow-up upon discharge. Patient is agreeable to [facility] follow up. If discharged today, recommend sending home with 5mg tablets with instructions to take 5mg Tuesday (if not already received in hospital), 7.5mg Tuesday, 5mg Tuesday, and will recheck INR Tuesday via home care. 4. Provided warfarin education. Marybeth Rahman RPh, PharmD [facility] Consult Service is available daily [phone] via [employer]. If no response, please page [phone]. Hospitalist Progress Note 04/13/2024 Subjective: Admit Date: 04/03/2024 PCP: Jared Evans MD Room#: N4-461/N4-461 B BRIEF HOSPITAL COURSE: 83-year-old woman with history of A-fib on Eliquis, tobacco use, hypertension, hyperlipidemia, asthma, hiatal hernia, GERD presented to [facility] on 04/03 with right leg pain, numbness, tingling causing difficulty ambulating. CTA of lower extremity showed severe atherosclerotic disease with bilateral superficial femoral artery occlusion and transferred to [facility]. She underwent venous thrombectomy with vascular surgery and was initiated on warfarin bridging with heparin. [facility] followed and managed bridging anticoagulation. Pt reported feeling improvement from day to day. Though she was concerned that being stuck in the hospital will debilitate her.Her INR was therapeutic on 04/13. [facility] recommended transition to Warfarin alternating 5mg/7.5mg dosing and close OP follow up for INR check. Interval History: Pt seen and examined at bedside. No acute events overnight. Requested to work with PT this morning. They recommend home PT. Heparin gtt discontinued, plan for alternating 5/7.5 dosed warfarin and close OP follow up with [facility]. Case and plan discussed with [...] person, place, and time. Medications: Scheduled PRN Mspqgjbbjjs-Ttkboqnzl-Vbqqem, 1 puff, Inhalation, Daily influenza, 0.5 mL, [...] Jordin Roldan MD Division of Hospitalist Medicine [facility] Hospitalist Progress Note 04/12/2024 Subjective: Admit Date: 04/03/2024 PCP: Jared Evans MD Room#: N4-461/N4-461 B BRIEF HOSPITAL COURSE: 83-year-old woman with history of A-fib on Eliquis, tobacco use, hypertension, hyperlipidemia, asthma, hiatal hernia, GERD presented to [facility] on 04/03 with right leg pain, numbness, tingling causing difficulty ambulating. CTA of lower extremity showed severe atherosclerotic disease with bilateral superficial femoral artery occlusion and transferred to [facility]. She underwent venous thrombectomy with vascular [...] for component: LABALBU PT/INR: Recent Labs 04/10/24 0604/11/242604/12/24 05 PROTIME 17.7* 20.9* 20.3* INR 1.6* 1.9* [...] person, place, and time. Medications: Scheduled PRN Whwsmzzkahp-Mcmibwfcf-Pyrxjn, 1 puff, Inhalation, Daily influenza, 0.5 mL, [...] Jordin Roldan MD Division of Hospitalist Medicine [facility] Anticoagulation Management Service ([facility]) Inpatient Warfarin Consult HPI: Mel Pop is a 83 y.o. female admitted on 04/03/2024 for Peripheral arterial disease (HCC). Past Medical History: Diagnosis Date Asthma Essential hypertension 03/07/2020 GERD (gastroesophageal reflux disease) Hiatal hernia Pure hypercholesterolemia 03/07/2020 Patient is newly referred to the [facility] clinic for warfarin management. Pt [...] PharmD [facility] Consult Service is available daily [phone] via [employer] Secure Chat. If no response, please page [phone]. Images from the original note were not included. OCCUPATIONAL THERAPY [facility] Initial Evaluation Name/MRN: Mel Pop ([id number]) Evaluation Date: 04/11/2024 Date of : 1940 Admission Date: 04/03/2024 5:47 PM Age: 83 y.o. 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[facility]) 06/16/2022 Cellulitis 05/18/2022 Nicotine use disorder 05/18/2022 Irritable bowel syndrome with diarrhea 03/07/2020 Microscopic hematuria 03/07/2020 Left retinal detachment 03/07/2020 Hyperglycemia 03/07/2020 Osteopenia of left femoral neck 03/07/2020 penitentiary current use of anticoagulant therapy 03/07/2020 Seasonal allergies 03/07/2020 Chronic renal insufficiency, stage III (moderate) ([facility]) 03/07/2020 Major depression, single episode, in complete remission ([facility]) 03/07/2020 Gastroesophageal reflux disease without esophagitis 03/07/2020 Essential hypertension 03/07/2020 Pure hypercholesterolemia 03/07/2020 Overweight 03/07/2020 Psoriasis 03/07/2020 History of cerebrovascular accident 03/07/2020 Atrial fibrillation ([facility]) 03/07/2020 Chronic obstructive pulmonary disease ([facility]) 03/07/2020 Finger osteomyelitis, right ([facility]) 03/06/2020 Medical Precautions: No active [...] Responsibilities: Independent Receives Help From: None Active Hedis Nurse: Yes Prior Level of Function ADL Assistance: [...] In 1132 Time Out 1144 Minutes 12 ENLLY Lantigua Patient's Occupational Therapy Plan of Care supervision is transferred to a [facility] Therapy Services Occupational Therapist. Goals and/or treatment plan was established in collaboration with patient/family/other representatives. Hospitalist Progress Note 04/11/2024 Subjective: Admit Date: 04/03/2024 PCP: Jared Evans MD Room#: N4-461/N4-461 B BRIEF HOSPITAL COURSE: 83-year-old woman with history of A-fib on Eliquis, tobacco use, hypertension, hyperlipidemia, asthma, hiatal hernia, GERD presented to [facility] on 04/03 with right leg pain, numbness, tingling causing difficulty ambulating. CTA of lower extremity showed severe atherosclerotic disease with bilateral superficial femoral artery occlusion and transferred to [facility]. She underwent venous thrombectomy with vascular [...] person, place, and time. Medications: Scheduled PRN Epankrzouxn-Ahakwzeyo-Ufxaaf, 1 puff, Inhalation, Daily influenza, 0.5 mL, [...] Jordin Roldan MD Division of Hospitalist Medicine [facility] Images from the original note were not included. PHYSICAL THERAPY [facility] Initial Evaluation Name/MRN: Mel Pop ([id number]) Evaluation Date: 04/11/2024 Date of : 1940 Admission Date: 04/03/2024 5:47 PM Age: 83 y.o. 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 03/07/2020 Seasonal allergies 03/07/2020 Chronic renal insufficiency, stage III (moderate) ([facility]) 03/07/2020 Major depression, single episode, in complete remission ([facility]) 03/07/2020 Gastroesophageal reflux disease without esophagitis 03/07/2020 Essential hypertension 03/07/2020 Pure hypercholesterolemia 03/07/2020 Overweight 03/07/2020 Psoriasis 03/07/2020 History of cerebrovascular accident 03/07/2020 Atrial fibrillation ([facility]) 03/07/2020 Chronic obstructive pulmonary disease ([facility]) 03/07/2020 Finger osteomyelitis, right ([facility]) 03/06/2020 Medical Precautions: No active [...] Raw Score (No Stairs) : 19 [facility] Score: Walked 10 steps or more [...] of Care supervision is transferred to a [facility] Physical Therapist. Goals and/or treatment plan was established in collaboration with patient/family/other representatives. [facility] Anticoagulation Management Service ([facility]) Inpatient Warfarin Consult HPI: Mel Pop is a 83 y.o. female admitted on 04/03/2024 for Peripheral arterial disease (HCC). Past Medical History: Diagnosis Date Asthma Essential hypertension 03/07/2020 GERD (gastroesophageal reflux disease) Hiatal hernia Pure hypercholesterolemia 03/07/2020 Patient is newly referred to the [facility] clinic for warfarin management. Pt [...] and adjust dose accordingly. 3. Will facilitate [facility] follow-up upon discharge. Patient is agreeable to [facility] follow up. 4. Provided warfarin education. Marybeth Rahman RPh, PharmD [facility] Consult Service is available daily [phone] via [employer] Secure [employer]. If no response, please page [phone]. Hospitalist Progress Note 04/10/2024 Subjective: Admit Date: 04/03/2024 PCP: Jared Evans MD Room#: N4-461/N4-469 B BRIEF HOSPITAL COURSE: 83-year-old woman with history of A-fib on Eliquis, tobacco use, hypertension, hyperlipidemia, asthma, hiatal hernia, GERD presented to [facility] on 04/03 with right leg pain, numbness, tingling causing difficulty ambulating. CTA of lower extremity showed severe atherosclerotic disease with bilateral superficial femoral artery occlusion and transferred to [facility]. She underwent venous thrombectomy with vascular [...] Jordin Roldan MD Division of Hospitalist Medicine [facility] Nutrition update completed. Chart reviewed. Patient to be monitored and followed by the diet graphics edit technician. KEITH Farrar [facility] Anticoagulation Management Service ([facility]) Inpatient Warfarin Consult HPI: Mel Pop is a 83 y.o. female admitted on 04/03/2024 for Peripheral arterial disease (HCC). Past Medical History: Diagnosis Date Asthma Essential hypertension 03/07/2020 GERD (gastroesophageal reflux disease) Hiatal hernia Pure hypercholesterolemia 03/07/2020 Patient is newly referred to the [facility] clinic for warfarin management. Pt [...] Will determine if pt is agreeable to [facility] follow-up. 4. Will provide warfarin education. Marybeth Rahman, [facility], PharmD [facility] Consult Service is available daily [phone] via [employer] Secure Chat. If no response, please page [phone]. Hospitalist Progress Note 04/09/2024 Assessment/Plan: Data: (CAT1) [...] Date: 04/03/2024 PCP: Jared Evans MD Room#: N4-041/N4-529 B Brief Hospital course: Patient is an 83-year-old female with history of A-fib on Eliquis, significant tobacco use, HTN, HLD, asthma, hiatal hernia, GERD who presented to [facility] 04/03 with right leg pain, numbness, tingling causing difficulty ambulating. CTA of LE, showing severe LE atherosclerotic disease with bilateral superficial femoral artery occlusion, and was transferred to [facility] for admission. Interval History: Mild shortness [...] Robert Vigil MD Division of Hospitalist Medicine [facility] Anticoagulation Management Service ([facility]) Inpatient Warfarin Consult HPI: Mel Pop is a 83 y.o. female admitted on 04/03/2024 for Peripheral arterial disease (HCC). Past Medical History: Diagnosis Date Asthma Essential hypertension 03/07/2020 GERD (gastroesophageal reflux disease) Hiatal hernia Pure hypercholesterolemia 03/07/2020 Patient is newly referred to the [facility] clinic for warfarin management. Pt [...] PharmD [facility] Consult Service is available daily [phone] via [employer]. If no response, please page [phone]. Hospitalist Progress Note 04/08/2024 Assessment/Plan: Data: (CAT1) [...] asthma, hiatal hernia, GERD who presented to [facility] 04/03 with right leg pain, numbness, tingling causing difficulty ambulating. CTA of LE, showing severe LE atherosclerotic disease with bilateral superficial femoral artery occlusion, and was transferred to [facility] for admission. Interval History: Pain continues [...] Robert Vigil MD Division of Hospitalist Medicine [facility] Anticoagulation Management Service ([facility]) Inpatient Warfarin Consult HPI: Mel Pop is a 83 y.o. female admitted on 04/03/2024 for Peripheral arterial disease (HCC). Past Medical History: Diagnosis Date Asthma Essential hypertension 03/07/2020 GERD (gastroesophageal reflux disease) Hiatal hernia Pure hypercholesterolemia 03/07/2020 Patient is newly referred to the [facility] clinic for warfarin management. Pt [...] Will determine if pt is agreeable to [facility] follow-up. 4. Will provide warfarin education. Michelle Lugo RPh, PharmD [facility] Consult Service is available daily [phone] via [employer] Secure [employer]. If no response, please page [phone]. Hospitalist Progress Note 04/07/2024 Assessment/Plan: Data: (CAT1) [...] Anticipate DC pending clinical improvement and pain., Oil Seal Assembler recommendations, Coumadin bridge with heparin Total time [...] asthma, hiatal hernia, GERD who presented to [facility] 04/03 with right leg pain, numbness, tingling causing difficulty ambulating. CTA of LE, showing severe LE atherosclerotic disease with bilateral superficial femoral artery occlusion, and was transferred to [facility] for admission. Interval History: Pain improved [...] component: LABALBU PT/INR: Recent Labs 04/05/24 0739 04/05/247 04/07/24 025 PROTIME 11.9 11.4 11.1 INR 1.1 1.0 [...] Robert Vigil MD Division of Hospitalist Medicine [facility] Anticoagulation Management Service ([facility]) Inpatient Warfarin Consult HPI: Mel Pop is a 83 y.o. female admitted on 04/03/2024 for Peripheral arterial disease (HCC). Past Medical History: Diagnosis Date Asthma Essential hypertension 03/07/2020 GERD (gastroesophageal reflux disease) Hiatal hernia Pure hypercholesterolemia 03/07/2020 Patient is newly referred to the [facility] clinic for warfarin management. Pt [...] PharmD [facility] Consult Service is available daily [phone] via [employer]. If no response, please page [phone]. Department of General Surgery Daily Progress Note [...] George Sarah MD PGY5, General Surgery Pager #[phone] CDI Query Response: Acute thrombus within the [...] Anticipate DC pending clinical improvement and pain., Oil Seal Assembler recommendations, Coumadin bridge with heparin Total time [...] Date: 04/03/2024 PCP: Jared Evans MD Room#: N4-461/N4-306 B Brief Hospital course: Patient is an 83-year-old female with history of A-fib on Eliquis, significant tobacco use, HTN, HLD, asthma, hiatal hernia, GERD who presented to [facility] 04/03 with right leg pain, numbness, tingling causing difficulty ambulating. CTA of LE, showing severe LE atherosclerotic disease with bilateral superficial femoral artery occlusion, and was transferred to [facility] for admission. Interval History: Has significant [...] Robert Vigil MD Division of Hospitalist Medicine [facility] Department of General Surgery Daily Progress Note [...] questions have been answered to their satisfaction. [facility] Anticoagulation Management Service ([facility]) Inpatient Warfarin Consult HPI: Mel Pop is a 83 y.o. female admitted on 04/03/2024 for Peripheral arterial disease (HCC). Past Medical History: Diagnosis Date Asthma Essential hypertension 03/07/2020 GERD (gastroesophageal reflux disease) Hiatal hernia Pure hypercholesterolemia 03/07/2020 Patient is newly referred to the [facility] clinic for warfarin management. Pt [...] Will determine if pt is agreeable to [facility] follow-up 4. Will provide warfarin education. Marybeth Rahman RPh, PharmD [facility] Consult Service is available daily [phone] via [employer] Secure Chat. If no response, please page [phone]. Hospitalist Progress Note 04/05/2024 Assessment/Plan: Data: (CAT1) [...] Discharge Disposition: Anticipate DC pending clinical improvement, oracle hrms consultant recommendations Total time spent (which include [...] Date: 04/03/2024 PCP: Jared Evans MD Room#: N4-051/N4-394 B Brief Hospital course: Patient is an 83-year-old female with history of A-fib on Eliquis, significant tobacco use, HTN, HLD, asthma, hiatal hernia, GERD who presented to [facility] 04/03 with right leg pain, numbness, tingling causing difficulty ambulating. CTA of LE, showing severe LE atherosclerotic disease with bilateral superficial femoral artery occlusion, and was transferred to [facility] for admission. Interval History: Had more [...] Robert Vigil MD Division of Hospitalist Medicine [facility] Nutrition rescreen completed. Chart reviewed. Patient to be monitored and followed by the diet graphics edit technician. KEITH Harmon [facility] Anticoagulation Management Service ([facility]) Inpatient Warfarin Consult HPI: Mel Pop is a 83 y.o. female admitted on 04/03/2024 for Peripheral arterial disease (HCC). Past Medical History: Diagnosis Date Asthma Essential hypertension 03/07/2020 GERD (gastroesophageal reflux disease) Hiatal hernia Pure hypercholesterolemia 03/07/2020 Patient is newly referred to the [facility] clinic for warfarin management. Pt [...] Will determine if pt is agreeable to [facility] follow-up 4. Will provide warfarin education. Thank you for this consult Patty Duggan RPh, PharmD [facility] Consult Service is available daily [phone] via [employer] Secure Chat. If no response, please page [phone]. Department of General Surgery Daily Progress Note [...] Naik MD General Surgery PGY-4 Pager # [phone] Associated attestation - Kristyn Blankenship MD - [...] NPO at midnight for possible thrombectomy tomorrow. [facility] Anticoagulation Management Service ([facility]) Inpatient Warfarin Consult HPI: Mel Pop is a 83 y.o. female admitted on 04/03/2024 for Peripheral arterial disease (HCC). Past Medical History: Diagnosis Date Asthma Essential hypertension 03/07/2020 GERD (gastroesophageal reflux disease) Hiatal hernia Pure hypercholesterolemia 03/07/2020 Patient is newly referred to the [facility] clinic for warfarin management. Pt [...] Will determine if pt is agreeable to [facility] follow-up 4. Will provide warfarin education. Thank you for this consult Marybeth Rahman RPh, PharmD [facility] Consult Service is available daily [phone] via N[employer]erv Secure [employer]. If no response, please page [phone]. Nonbillable encounter. Patient was seen by provider earlier today Patient is an 83-year-old female with history of A-fib on Eliquis, significant tobacco use, HTN, HLD, asthma, hiatal hernia, GERD who presented to [facility] 04/03 with right leg pain, numbness, tingling causing difficulty ambulating. CTA of LE, showing severe LE atherosclerotic disease with bilateral superficial femoral artery occlusion, and was transferred to [facility] for admission. Severe bilateral LE atherosclerotic [...] Eliquis -Smoking cessation documented in this encounter [facility] 04-13-2024 Note Formatting of this n ote is different from the original. Images from the original note were not included. Care Management Progress Note INR 2.3 today. Hep drip continued, plan to DC to [facility] today. Plan to have PT seen patient today per her request. Patient is active with [facility]. Await treatment plan and clinical progress. resident care manager rn will continue to follow for transitional care [...] lower [place], vasc consult" 04/06/2024 Bernie Cutler, HUB LEAD - SKILLED LABORER 04/04/2024 4:04 AM 04/06/2024 Bernie Cutler APRN - SKILLED LABORER 04/03/2024 11:17 PM Length of Stay (Days): 10 GMLOS: 4 [facility] 04-13-2024 Note Formatting of this n ote is different from the original. Images from the original note were not included. Care Management Progress Note INR 2.3 today. Hep drip continued, plan to DC to [facility] today. Plan to have PT seen patient today per her request. Patient is active with [facility]. Await treatment plan and clinical progress. resident care manager rn will continue to follow for transitional care [...] vasc consult" 04/06/2024 Bernie Cutler APRN - SKILLED LABORER 04/04/2024 4:04 AM 04/06/2024 Bernie Cutler APRN - SKILLED LABORER 04/03/2024 11:17 PM Length of Stay (Days): 10 GMLOS: 4 [facility] 04-13-2024 Plan of care note The [...] plan, medications, and discharge instructions Outcome: Progressing [facility] 04-12-2024 Plan of care note Problem: [...] risk of patient condition declining or worsening [facility] 04-12-2024 Note Formatting of this n ote is different from the original. Images from the original note were not included. Care Management Progress Note Patent currently still on Hep Drip, INR 1.9. Will convert to oral when appropriate. Pt active with [facility]- will continue services at discharge. Await treatment plan and clinical progress. resident care manager rn will continue to follow for transitional care needs for discharge planning. Discharge Milestones and Delays Expected date/time: 04/13/2024 Expected discharge disposition: Home Health Services Discharge Milestones Place discharge order Complete med reconciliation Case mgmt discharge readiness Clinical Stability Diagnostic Workup Oil Seal Assembler Recommendations Facility Choice Selection Imaging Results PT [...] Length of Stay (Days): 9 GMLOS: 4 [facility] 04-12-2024 Note Formatting of this n ote is different from the original. Images from the original note were not included. Care Management Progress Note Patent currently still on Hep Drip, INR 1.9. Will convert to oral when appropriate. Pt active with [facility]- will continue services at discharge. Await treatment plan and clinical progress. resident care manager rn will continue to follow for transitional care needs for discharge planning. Discharge Milestones and Delays Expected date/time: 04/13/2024 Expected discharge disposition: Home Health Services Discharge Milestones Place discharge order Complete med reconciliation Case mgmt discharge readiness Clinical Stability Diagnostic Workup Oil Seal Assembler Recommendations Facility Choice Selection Imaging Results PT discharge readiness OT discharge readiness Patient Education Complete Expected Discharge History Expected Date/Time Set By Reviewed At 04/13/2024 Cathi Avila RN 04/12/2024 8:02 AM hep gtt- transitioning to coumadin, INR 1.9" 04/11/2024 Cathi Avial RN 04/11/2024 8:03 AM 04/11/2024 Cathi Avila [...] Length of Stay (Days): 9 GMLOS: 4 [facility] 04-12-2024 Plan of care note The [...] medications, and discharge instructions Outcome: Progressing T [facility] 04-11-2024 Note Formatting of this n ote is different from the original. Images from the original note were not included. Care Management Progress Note Patent currently still on Hep Drip, INR 1.9. Will convert to oral when appropriate. Pt active with [facility]- will continue services at discharge. Await treatment plan and clinical progress. resident care manager rn will continue to follow for transitional care [...] vasc consult" 04/06/2024 Bernie Cutler APRN - SKILLED LABORER 04/04/2024 4:04 AM 04/06/2024 Bernie Cutler APRN - SKILLED LABORER 04/03/2024 11:17 PM Length of Stay (Days): 8 GMLOS: 4 [facility] 04-11-2024 Note Formatting of this n ote is different from the original. Images from the original note were not included. Care Management Progress Note Patent currently still on Hep Drip, INR 1.9. Will convert to oral when appropriate. Pt active with [facility]- will continue services at discharge. Await treatment plan and clinical progress. resident care manager rn will continue to follow for transitional care [...] vasc consult" 04/06/2024 Bernie Cutler APRN - SKILLED LABORER 04/04/2024 4:04 AM 04/06/2024 Bernie Cutler APRN - SKILLED LABORER 04/03/2024 11:17 PM Length of Stay (Days): 8 GMLOS: 4 [facility] 04-11-2024 Plan of care note Problem: [...] risk of patient condition declining or worsening [facility] 04-11-2024 Plan of care note The [...] level or baseline comfort level Outcome: Progressing [facility] 04-10-2024 Plan of care note Problem: [...] of patient condition declining or worsening T [facility] 04-10-2024 Note Formatting of this n ote is different from the original. Images from the original note were not included. Care Management Progress Note Patient currently still on Heparin Drip, INR 1.6 today.Will convert to oral when appropriate. Pt active with [facility]- will continue services at discharge. Await treatment plan and clinical progress. resident care manager rn will continue to follow for transitional care needs for discharge planning. Discharge Milestones and Delays Expected date/time: 04/11/2024 Expected discharge disposition: Home or Self Care Discharge Milestones Place discharge order Complete med reconciliation Case mgmt discharge readiness Clinical Stability Diagnostic Workup Oil Seal Assembler Recommendations Facility Choice Selection Imaging Results Patient [...] lower [place], vasc consult" 04/06/2024 Bernie Cutler, HUB LEAD - SKILLED LABORER 04/04/2024 4:04 AM 04/06/2024 Bernie Cutler APRN - SKILLED LABORER 04/03/2024 11:17 PM Length of Stay (Days): 7 GMLOS: 4 [facility] 04-10-2024 Note Formatting of this n ote is different from the original. Images from the original note were not included. Care Management Progress Note Patient currently still on Heparin Drip, INR 1.6 today.Will convert to oral when appropriate. Pt active with [facility]- will continue services at discharge. Await treatment plan and clinical progress. resident care manager rn will continue to follow for transitional care needs for discharge planning. Discharge Milestones and Delays Expected date/time: 04/11/2024 Expected discharge disposition: Home or Self Care Discharge Milestones Place discharge order Complete med reconciliation Case mgmt discharge readiness Clinical Stability Diagnostic Workup Oil Seal Assembler Recommendations Facility Choice Selection Imaging Results Patient [...] Length of Stay (Days): 7 GMLOS: 4 [facility] 04-09-2024 Note Formatting of this n ote is different from the original. Images from the original note were not included. Care Management Progress Note Remains on heparin gtt while transitioning to coumadin. Consult Hemology. Pt active with [facility]- will continue services at discharge. Await treatment plan and clinical progress. resident care manager rn will continue to follow for transitional care needs for discharge planning. Discharge Milestones and Delays Expected date/time: 04/10/2024 Expected discharge disposition: Home or Self Care Discharge Milestones Place discharge order Complete med reconciliation Case mgmt discharge readiness Clinical Stability Diagnostic Workup Oil Seal Assembler Recommendations Facility Choice Selection Imaging Results Patient [...] Length of Stay (Days): 6 GMLOS: 3.1 [facility] 04-09-2024 Note Formatting of this n ote is different from the original. Images from the original note were not included. Care Management Progress Note Remains on heparin gtt while transitioning to coumadin. Consult Hemology. [facility]- will continue services at discharge. Await treatment plan and clinical progress. resident care manager rn will continue to follow for transitional care needs for discharge planning. Discharge Milestones and Delays Expected date/time: 04/10/2024 Expected discharge disposition: Home or Self Care Discharge Milestones Place discharge order Complete med reconciliation Case mgmt discharge readiness Clinical Stability Diagnostic Workup Oil Seal Assembler Recommendations Facility Choice Selection Imaging Results Patient [...] Length of Stay (Days): 6 GMLOS: 3.1 [facility] 04-08-2024 Plan of care note Progressing [facility] 04-07-2024 Plan of care note The [...] or baseline comfort level Outcome: Progressing . [facility] 04-07-2024 Hospital Discharge instructions Lolita Sarah [...] Rahman RPh - 04/13/2024 1:07 PM EDT [facility] Clinic will monitor your warfarin after you go home. [facility] Phone number: [phone]. Home care nurse will check your INR Monday 04/16 and [facility] will contact you with warfarin [...] Extended Emergency Contact Information Primary Emergency Contact: Dmaaris Villafana Mobile Relation: Friend Secondary Emergency Contact: SanchezJosé Miguel/ Fidel Mobile Relation: Child Past Surgical [...] detachment Hyperglycemia Osteopenia of left femoral neck [facility] current use of anticoagulant therapy Seasonal allergies [...] 8 oz) Mental Status: {HECTOR Patient Mental Status:14980} IV Access: {HECTOR IV Access:09081} Nursing Mobility/ADLs: Walking {MAHESH ADL:79251::"Independent"} Transfer {MAHESH ADL:06211::"Independent"} Bathing {MAHESH ADL:95582::"Independent"} Dressing {MAHESH ADL:80694::"Independent"} Toileting {MAHESH ADL:17995::"Independent"} Feeding {MAHESH ADL:75099::"Independent"} Signal And Communications Maintainer {MAHESH ADL:38684::"Independent"} Med Delivery {yes/no:96613} Wound Care Documentation and Therapy: Elimination: Continence: Bowel: {yes/no:83106} Bladder: {yes/no:} Urinary Catheter: {HECTOR Urinary Catheter:94894} Colostomy/Ileostomy/Ileal Conduit: {YES / NO:} Date of Last BM: Intake/Output Summary (Last 24 hours) at 04/04/2024 1135 Last data filed at 04/03/20242056 Gross per 24 hour Intake 500 ml Output -- Net 500 ml I/O last 3 completed shifts: In: 500 (6.9 mL/kg) [IV Piggyback:500] Out: - (0 mL/kg) Weight: 72.3 kg Safety Concerns: {HECTOR Safety Concerns:98040} Impairments/Disabilities: {HECTOR Impairments/Disabilities:55639} Nutrition Therapy: Current Nutrition Therapy: {HECTOR Diet List:14936} Routes of Feeding: {routes of feedin} Liquids: {liquid consistency:35774} Daily Fluid Restriction: {daily fluid restriction:18436} Last Modified Barium Swallow with Video (Video Swallowing Test): {done not done:54813} Treatments at the Time of Hospital Discharge: Respiratory Treatments: Oxygen Therapy: {Therapy; copd oxygen:76571} Ventilator: {HECTOR Ventilator:79765} Rehab Therapies: {GEN THERAPY DISCIPLINE SCAL:6533265} Weight Bearing Status/Restrictions: {POD WEIGHT BEARIN} Other Medical Equipment (for information only, NOT a DME order): {Assistive Devices DME:60786} Other Treatments: Patient's personal belongings (please select all that are sent with patient): {HECTOR Patient Belongings:94388} RN SIGNATURE: {E-signature:33380} CASE MANAGEMENT/SOCIAL WORK SECTION Inpatient Status Date: Discharging to Facility/ Agency Name: [facility] Address: [address] [place] [address] Dialysis Facility (if applicable) Name: Address: Dialysis Schedule: Phone: Fax: Passenger Barge Master/Hose Handler signature: {E-signature:48391} PHYSICIAN SECTION Name: Mel Pop Prognosis: {Rehab Prognosis:78697} Condition at Discharge: {Patient Condition:14408} Rehab Potential (if transferring to Rehab): {Rehab Prognosis:96322} Recommended Labs or Other Treatments After Discharge: The individual is being admitted to a nursing facility directly from an [facility] or a unit of a [facility] that is not operated by or licensed by [facility] under section 5119.14 or 5160-3-15.1 5 The individual requires the level of services provided by a nursing facility for the condition for which he or she was treated in the hospital and, Physician Certification: I certify the above information and transfer of Mel Pop is necessary for the continuing treatment of the diagnosis listed and that she requires {HECTOR Level of Care:79668} for {greater less than:11942} 30 days. Update Admission H&P: {HECTOR Changes in H&P:44461} PHYSICIAN SIGNATURE: {E-signature:57954} documented in this encounter [facility] 04-07-2024 Nurse Note NO changes to heparin infusion at this time. [facility] 04-06-2024 Note Formatting of this n ote is different from the original. Images from the original note were not included. Care Management Progress Note Pt s/p thrombectomy this am with vascular. Remains on heparin gtt while transitioning to coumadin. Pt active with [facility]- will continue services at discharge. Discharge [...] vasc consult" 04/06/2024 Bernie Cutler APRN - SKILLED LABORER 04/04/2024 4:04 AM 04/06/2024 Bernie Cutler APRN - SH[facility] 04/03/2024 11:17 PM Length of Stay (Days): 3 GMLOS: 3.1 [facility] 04-06-2024 Note Formatting of this n ote is different from the original. Images from the original note were not included. Care Management Progress Note Pt s/p thrombectomy this am with vascular. Remains on heparin gtt while transitioning to coumadin. Pt active with [facility]- will continue services at discharge. Discharge [...] lower [place], vasc consult" 04/06/2024 Bernie Cutler HUB LEAD - SKILLED LABORER 04/04/2024 4:04 AM 04/06/2024 Bernie Cutler APRN - SKILLED LABORER 04/03/2024 11:17 PM Length of Stay (Days): 3 GMLOS: 3.1 T [facility] 04-06-2024 Note Formatting of this n ote might be different from the original. Patient report called to 4N RN and denies any further questions. Patient resting comfortably and no signs of distress. Per resident patient to lay flat for 2 hours and restart heparin GTT at 1215. Transport notified. [facility] 04-06-2024 Note Formatting of this n ote might be different from the original. Patient report called to 4N RN and denies any further questions. Patient resting comfortably and no signs of distress. Per resident patient to lay flat for 2 hours and restart heparin GTT at 1215. Transport notified. [facility] 04-06-2024 Note Formatting of this n ote might be different from the original. SW assisted patient with completion of Health Care Power of Erp Consultant. One copy placed in patient chart, one copy sent to medical records and two copies given to patient. Requested by patient, while at bedside this SW spoke to patient's son via patients phone to explain that HCPOA was being completed by patient. Patients son José Miguel Castillo ([phone]) agreed to be this patients agent on the HCPOA and confirmed understanding. [facility] [facility] 04-06-2024 Note Formatting of this n ote might be different from the original. SW assisted patient with completion of Health Care Power of Erp Consultant. One copy placed in patient chart, one copy sent to medical records and two copies given to patient. Requested by patient, while at bedside this SW spoke to patient's son via patients phone to explain that HCPOA was being completed by patient. Patients son José Miguel Castillo ([phone]) agreed to be this patients agent on the HCPOA and confirmed understanding. [employer] 04-06-2024 Note Formatting of this n ote [...] technique was used to place a 5 Luxembourger sheath. A Bentson wire was able to be advanced in the inferior vena cava without difficulty. The 5 Luxembourger sheath was then upsized to a 16 Luxembourger sheath and the penumbra flash suction thrombectomy device was prepared per business communications instructor's instructions. The patient was also given 5000 units of heparin for systemic anticoagulation at this time. The Penumbra device was then inserted through the 16 Luxembourger sheath and a suction thrombectomy was performed [...] device was removed as was the 16 Luxembourger sheath and an 0 silk suture was [...] the case. Kristyn Blankenship MD Vascular Surgery [facility] 04-06-2024 Note Formatting of this n ote is different from the original. Date: 04/06/2024 Location: [facility] OR Name: Mel Pop, : 1940, Diagnosis Pre-op Diagnosis * Right leg DVT (HCC) [I82.401] Post-op Diagnosis * Right leg DVT (HCC) [I82.401] Procedures RIGHT LOWER EXTREMITY VENOUS MECHANICAL THROMBECTOMY 55773 - [place] PRQ TRANSLUMINAL MECHANICAL THROMBECTOMY VEIN Surgeons * Kristyn Blankenship - Primary Procedure Summary Anesthesia: General ASA: III Estimated Blood Loss: 300 mL Drains: * None in log * Staff: Stuffed Casing Tier: Negrita Rey RN; Amira Burton RN Scrub [...] antibiotics are not indicated for this procedure. [facility] Note Formatting of this n ote [...] technique was used to place a 5 Luxembourger sheath. A Bentson wire was able to be advanced in the inferior vena cava without difficulty. The 5 Luxembourger sheath was then upsized to a 16 Luxembourger sheath and the penumbra flash suction thrombectomy device was prepared per business communications instructor's instructions. The patient was also given 5000 units of heparin for systemic anticoagulation at this time. The Penumbra device was then inserted through the 16 Luxembourger sheath and a suction thrombectomy was performed [...] device was removed as was the 16 Luxembourger sheath and an 0 silk suture was [...] the case. Kristyn Blankenship MD Vascular Surgery [facility] 04-06-2024 Note Formatting of this n ote is different from the original. Date: 04/06/2024 Location: [facility] OR Name: Mel Pop, : 1940, Diagnosis Pre-op Diagnosis * Right leg DVT (HCC) [I82.401] Post-op Diagnosis * Right leg DVT (HCC) [I82.401] Procedures RIGHT LOWER EXTREMITY VENOUS MECHANICAL THROMBECTOMY 53439 - [place] PRQ TRANSLUMINAL MECHANICAL THROMBECTOMY VEIN Surgeons * Kristyn Blankenship - Primary Procedure Summary Anesthesia: General ASA: III Estimated Blood Loss: 300 mL Drains: * None in log * Staff: Stuffed Casing Tier: Negrita Rey RN; Amira Burton RN Scrub [...] antibiotics are not indicated for this procedure. [facility] 04-06-2024 Note Formatting of this n ote might be different from the original. Dr Blankenship at bedside. She called family to update them on procedure time change [facility] 04-06-2024 Note Formatting of this n ote might be different from the original. Dr Blankenship at bedside. She called family to update them on procedure time change [facility] 04-06-[address] Blankenship at bedside. She called family to update them on procedure time change [facility] 04-05-2024 Note Formatting of this n ote is different from the original. Images from the original note were not included. Care Management Progress Note Vascular following with noted plan for possible thrombectomy tomorrow. Remains on heparin gtt while transitioning to coumadin per oncology recommendation. Pt from home alone- indep and active with [facility]- will return. Discharge Milestones and Delays [...] Length of Stay (Days): 2 GMLOS: 3.1 [facility] 04-05-2024 Note Formatting of this n ote is different from the original. Images from the original note were not included. Care Management Progress Note Vascular following with noted plan for possible thrombectomy tomorrow. Remains on heparin gtt while transitioning to coumadin per oncology recommendation. Pt from home alone- indep and active with [facility]- will return. Discharge Milestones and Delays Expected [...] vasc consult" 04/06/2024 Bernie Cutler APRN - SKILLED LABORER 04/04/2024 4:04 AM 04/06/2024 Bernie Cutler APRN - SHAMIKA 04/03/2024 11:17 PM Length of Stay (Days): 2 GMLOS: 3.1 [facility] 04-05-2024 Plan of care note The patient is Moderately Stable - Low risk of patient condition declining or worsening [facility] patient's goals for the shift include met The clinical goals for the shift include met [facility] 04-04-2024 Consult note Formatting of th is note is different from the original. Images from the original note were not included. [facility] Hematology Oncology Inpatient Consultation [facility] Mel Pop : 1940(83 y.o.) Date: [...] afib, hypertension, and GERD who presented to [facility] for right lower extremity pain. Reports after [...] trifurcation vessels. Vascular surgery recommended transfer to [facility]. PVR and BLE US results pending [...] called her listed contacts (her friend and [id number]-[id number] however they do not manage her pill [...] eliquis. I have left a voicemail with [facility] pharmacy in [place] to see if the Eliquis is being [...] min Stress: No Stress Concern Present (04/04/2024) [place] [employer] - Occupational Stress Questionnaire Feeling of Stress : Not at all Social Connections: Moderately Isolated (04/04/2024) Social Connection and Isolation Panel [NHANES] Frequency of Communication with Friends and Family: More than three times a week Frequency of Social Gatherings with Friends and Family: More than three times a week Attends Catholic Services: 1 to 4 times per year [...] 04/03/2024 Patient Name: MEL POP : 1940 [facility]#: [id number] Exam Date/Time: 04/03/2024 21:14 Procedure: CTA AORTA [...] 04/03/2024 Patient Name: MEL POP : 1940 [facility]#: [id number] Exam Date/Time: 04/03/2024 21:06 Procedure: CT HEAD [...] completing clinical documentation as well as with [id number] patient care, performing a medically appropriate examination, counseling / educating the patient/family/caregiver, and ordering medications, tests, or procedures. Electronically signed by Anthony Yee APRN - SKILLED LABORER Attending Attestation Note: I have personally performed [...] well as answering questions. Andre Patel MD [facility] [employer] Work Phone: 04-04-2024 Consult note Formatting of th is note is different from the original. Images from the original note were not included. [facility] Hematology Oncology Inpatient Consultation [facility] Mel Pop : 1940(83 y.o.) Date: April 04, 2024 Attending: Dr. aPtel Reason for consult: Primary Care Physician - Jared Evans MD Date of Admission - 04/03/2024 5:47 PM Subjective: Chief Complaint Patient presents with Numbness Leg Swelling HPI Mel Pop is a 83 y.o. woman with a history of severe atherosclerosis, COPD, former smoker, diverticulosis, afib, hypertension, and GERD who presented to [facility] for right lower extremity pain. Reports after [...] trifurcation vessels. Vascular surgery recommended transfer to [facility]. PVR and BLE US results pending [...] called her listed contacts (her friend and [id number] however they do not manage her pill [...] eliquis. I have left a voicemail with [facility] pharmacy in [place] to see if the Eliquis is being [...] min Stress: No Stress Concern Present (04/04/2024) [employer] - Occupational Stress Questionnaire Feeling of Stress : Not at all Social Connections: Moderately Isolated (04/04/2024) Social Connection and Isolation Panel [NHANES] Frequency of Communication with Friends and Family: More than three times a week Frequency of Social Gatherings with Friends and Family: More than three times a week Attends Catholic Services: 1 to 4 times per year [...] 04/03/2024 [facility] 1940 [id number] Exam Date/Time: 04/03/2024 21:14 Procedure: CTA AORTA [...] completing clinical documentation as well as with [id number] patient care, performing a medically appropriate examination, [...] Lolita Sarah MD PGY5, General Surgery Pager #[phone] Past Medical History: Diagnosis Date Asthma Essential [...] min Stress: No Stress Concern Present (04/04/2024) [place] - Occupational Stress Questionnaire Feeling of Stress : Not at all Social Connections: Moderately Isolated (04/04/2024) Social Connection and Isolation Panel [NHANES] Frequency of Communication with Friends and Family: More than three times a week Frequency of Social Gatherings with Friends and Family: More than three times a week Attends Catholic Services: 1 to 4 times per year [...] TESTING: Patient Name: MEL POP : 1940 [facility]#: [id number] Exam Date/Time: 04/03/2024 21:14 Procedure: CTA AORTA [...] evidence of phlegmasia. Heparin gtt initiated at [facility] prior to transfer and continued here. She notes missed doses of her Eliquis. Recommend compression and elevation of the right lower extremity. Can consider mechanical thrombectomy however given patient's age, this may be more risk than of benefit. Will continue to monitor for symptom improvement on anticoagulation alone. documented in this encounter [facility] 04-04-2024 Note Formatting of this n ote might be different from the original. Care Managment Initial Assessment Date: 04/04/2024 Patient Name: Mel Pop : 1940 Patient Information Source of Information: Patient Cognition/Language: WFL - Within Functional Limits Permission given to speak with patient home office representative/caregiver as indicated: Confirmation of Payer with patient/family: Yes Payer Name: nadege Christoval: No Confirmation of Primary Care Physician: Confirmed [...] Home Health Services Care Services Provider Name: [facility] Dialysis Type: NA Durable Medical Equipment: [...] home alone and indep. Pt active with [facility]- liaison following for continued services. Pt uses walker/cane at baseline. Pt has insurance, PCP and able to obtain meds. Pt's friends help with transportation. No needs antic at discharge. Virginia Rehman RN [facility] 04-04-2024 Note Formatting of this n ote might be different from the original. Care Managment Initial Assessment Date: 04/04/2024 Patient Name: Mel Pop : 1940 Patient Information Source of Information: Patient Cognition/Language: WFL - Within Functional Limits Permission given to speak with patient home office representative/caregiver as indicated: Confirmation of Payer with patient/family: Yes Payer Name: humana Christoval: No Confirmation of Primary Care Physician: Confirmed [...] home alone and indep. Pt active with [facility]- liaison following for continued services. Pt uses walker/cane at baseline. Pt has insurance, PCP and able to obtain meds. Pt's friends help with transportation. No needs antic at discharge. Virginia Rehman RN [employer] 04-04-2024 Note Formatting of this n ote is different from the original. Start PACC Note Home Health Referral Educated patient on Home Care and services available. Patient offered choice of available HHC and [facility]able [facility] Care [...] is noted as yes - consider a APPRENTICE PHOTOGRAPHER evaluation once the patient returns home. START PATIENT REGISTRATION INFORMATION Order Information Order Signing Physician: Robert Vigil MD Service Ordered RN ?: Yes Service Ordered PT ?: Yes Service Ordered OT ?: No Service Ordered ST ?: No Service Ordered APPRENTICE PHOTOGRAPHER?:No Service Ordered S IRON WORKER?: No Following Physician: Jared Evans MD Following Physician Overseeing Physician: Jared Evans MD (Required for Residents only) Agreeable to Follow? Yes Date/Time of Call 04/04/24 11:36 AM, Spoke with: Patient is a DEB. Care Coordination Same Day SOC?: No Primary Care Physician: Jared Evans MD Primary Care Physician Primary Care Physician Address: [address] [place] [id number] Visit Instructions: N/A Service Discharge Location Type: Home with Home Care Service Facility Name: N/A Service Floor Facility: N/A Service Room No: N/A Demographics Patient Last Name: Jose Alberto Patient First Name: Mel Language/Communication Barrier: none Service Address: [address] [place] [address] [address] Service City: [place] Service ST: [place] Service ZIP: [address] Service Other phone numbers: Telephone Information: Emergency [...] Caregiver Phone Number: na Caregiver Notes: N/A [employer] List No END PATIENT REGISTRATION INFORMATION Pt [...] intervention. Discharge Date: pending Referral Source-PACC: (Hospital/Unit): [facility] / N4-461/N4-461 B End PACC Note [facility] 04-04-2024 Note Formatting of this n ote is different from the original. Start PACC Note Home Health Referral Educated patient on Home Care and services available. Patient offered choice of available HHC and agreeable to SN/PT services with [facility]. Care [...] is noted as yes - consider a APPRENTICE PHOTOGRAPHER evaluation once the patient returns home. START PATIENT REGISTRATION INFORMATION Order Information Order Signing Physician: Robert Vigil MD Service Ordered RN ?: Yes Service Ordered PT ?: Yes Service Ordered OT ?: No Service Ordered ST ?: No Service Ordered APPRENTICE PHOTOGRAPHER?:No Service Ordered S IRON WORKER?: No Following Physician: Jared Evans MD Following Physician Overseeing Physician: Jared Evans MD (Required for Residents only) Agreeable to Follow? Yes Date/Time of Call 04/04/24 11:36 AM, Spoke with: Patient is a DEB. Care Coordination Same Day SOC?: No Primary Care Physician: Jared Evans MD Primary Care Physician Primary Care Physician Address: [address] [place], [place] [id number] Visit Instructions: N/A Service Discharge Location Type: Home with Home Care Service Facility Name: N/A Service Floor Facility: N/A Service Room No: N/A Demographics Patient Last Name: Jose Alberto Patient First Name: Mel Language/Communication Barrier: none Service Address: [address] [address] Service City: [place] Service ST: [place] Service ZIP: [address] Service Other phone numbers: Telephone Information: Emergency [...] Caregiver Phone Number: na Caregiver Notes: N/A [employer] List No END PATIENT REGISTRATION INFORMATION Pt [...] intervention. Discharge Date: pending Referral Source-PACC: (Hospital/Unit): [facility] / N4-461/N4-461 B End PACC Note [facility] 04-04-2024 Plan of care note The patient is Moderately Stable - Low risk of patient condition declining or worsening The patient's goals for the shift include safety The clinical goals for the shift include therapeutic aptt [facility] 04-04-2024 Note Formatting of this n ote might be different from the original. Patient is currently active with [facility]. The patients current certification period will on 05/18/24. The patient is currently receiving PT services through the agency. Spa Manager to continue to follow. [facility] 04-04-2024 Note Formatting of this n ote might be different from the original. Patient is currently active with [facility]. The patients current certification period will on 05/18/24. The patient is currently receiving PT services through the agency. Spa Manager to continue to follow. T [facility] 04-04-2024 Consult note Associated Order (s): IP [...] Lolita Sarah MD PGY5, General Surgery Pager #[phone] Past Medical History: Diagnosis Date Asthma Essential [...] min Stress: No Stress Concern Present (04/04/2024) [place] [employer] - Occupational Stress Questionnaire Feeling of Stress : Not at all Social Connections: Moderately Isolated (04/04/2024) Social Connection and Isolation Panel [NHANES] Frequency of Communication with Friends and Family: More than three times a week Frequency of Social Gatherings with Friends and Family: More than three times a week Attends Catholic Services: 1 to 4 times per year [...] TESTING: Patient Name: MEL POP : 1940 [facility]#: [id number] Exam Date/Time: 04/03/2024 21:14 Procedure: CTA AORTA [...] evidence of phlegmasia. Heparin gtt initiated at [facility] prior to transfer and continued here. She notes missed doses of her Eliquis. Recommend compression and elevation of the right lower extremity. Can consider mechanical thrombectomy however given patient's age, this may be more risk than of benefit. Will continue to monitor for symptom improvement on anticoagulation alone. [facility] Phone: 04-04-2024 Note Formatting of this [...] - DO NOT do CPR, intubation] [_] [DNR-SENIOR MOBILE APPLICATION DEVELOPER - Comfort care only] [_] DNR form [...] and/or family/surrogate. Pratibha Avelar DO Acute care [facility] 04/04/2024, 5:40 AM [facility] 04-04-2024 Note Formatting of this n [...] - DO NOT do CPR, intubation] [_] [DNR-SENIOR MOBILE APPLICATION DEVELOPER - Comfort care only] [_] DNR form [...] with patient and/or family/surrogate. Pratibha Avelar DO [facility] 04/04/2024, 5:40 AM T [facility] 04-04-2024 History and physical note [...] min Stress: No Stress Concern Present (04/04/2024) [place] [employer] - Occupational Stress Questionnaire Feeling of Stress : Not at all Social Connections: Moderately Isolated (04/04/2024) Social Connection and Isolation Panel [NHANES] Frequency of Communication with Friends and Family: More than three times a week Frequency of Social Gatherings with Friends and Family: More than three times a week Attends Catholic Services: 1 to 4 times per year [...] DO Division of Hospitalist Medicine Inpatient Medical Services/[facility] [employer] Work Phone: 04-04-2024 Note [employer] [facility] 04-04-2024 History and physical note Attending [...] min Stress: No Stress Concern Present (04/04/2024) [place] [employer] - Occupational Stress Questionnaire Feeling of Stress : Not at all Social Connections: Moderately Isolated (04/04/2024) Social Connection and Isolation Panel [NHANES] Frequency of Communication with Friends and Family: More than three times a week Frequency of Social Gatherings with Friends and Family: More than three times a week Attends Catholic Services: 1 to 4 times per year [...] DO Division of Hospitalist Medicine Inpatient Medical Services/[facility] documented in this encounter [facility] 04-04-2024 Plan of care note The patient is Moderately Stable - Low risk of patient condition declining or worsening The patient's goals for the shift include met The clinical goals for the shift include met Over the shift, the patient did not make progress toward the following goals. Barriers to progression include . Recommendations to address these barriers include . [facility] 04-04-2024 Emergency department Note Report to Delia Bond RN 04/04/24 034 [facility] 04-04-2024 Emergency department Note Report to Delia Bond RN 04/04/24 034 Multiple attempts made to call report to [facility] with phone number provided by hotbed lever operator, but when phone number dialed RN only gets busy tone. Will try again. Shannon Bond RN 04/04/24 0331 [facility] at bedside to transport pt to [facility]. Paperwork with EMS Shannon Bond RN [...] Resource Strain: Low Risk (05/18/2022) Received from [facility] Overall Financial Resource Strain (CARDIA) Difficulty of Paying Living Expenses: Not hard at all Food Insecurity: No Food Insecurity (05/18/2022) Received from [facility] Hunger Vital Sign Worried About Running Out of Food in the Last Year: Never true Ran Out of Food in the Last Year: Never true Transportation Needs: No Transportation Needs (05/18/2022) Received from [facility] PRAPARE - Transportation Lack of Transportation (Medical): No Lack of Transportation (Non-Medical): No Housing Stability: Unknown (05/18/2022) Received from [facility] Housing Stability Vital Sign Unable to Pay [...] [facility] (Per Emergency Physician): Interpretation per [...] COURSE and DIFFERENTIAL DIAGNOSIS/MDM: Vitals: Vitals: 04/03/243 04/03/246 09/220204/03/242203 BP: (!) 142/63 (!) 142/63 (!) 151/86 [...] extremities will heparinize or admit her to [facility] in case she needs an emergent [...] SEBASTIAN Herrera CNP 04/03/242237 Emergency Department Encounter [facility] Patient: Mel Pop [...] consulted recommends heparin drip and transferred to [facility], 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 Patient admitted to [facility]. Patient in agreement with plan. Diagnostics [...] or other complaints. documented in this encounter [facility] 04-04-2024 Emergency department Note Multiple attempts made to call report to [facility] with phone number provided by hotbed lever operator, but when phone number dialed RN only gets busy tone. Will try again. Shannon Bond RN 04/04/24 0331 [facility] 04-04-2024 Emergency department Note [facility] bedside to transport pt to [facility]. Paperwork with EMS Shannon Bond RN 04/04/24 0314 [facility] 04-03-2024 Emergency department Triage note Pt [...] upon arrival. No SOB or other complaints. [facility] 04-03-2024 Physician Emergency department Note EMERGENCY [...] Resource Strain: Low Risk (05/18/2022) Received from [facility] Overall Financial Resource Strain (CARDIA) Difficulty of Paying Living Expenses: Not hard at all Food Insecurity: No Food Insecurity (05/18/2022) Received from [facility] Hunger Vital Sign Worried About Running Out of Food in the Last Year: Never true Ran Out of Food in the Last Year: Never true Transportation Needs: No Transportation Needs (05/18/2022) Received from [facility] PRAPARE - Transportation Lack of Transportation (Medical): No Lack of Transportation (Non-Medical): No Housing Stability: Unknown (05/18/2022) Received from [facility] Housing Stability Vital Sign Unable to Pay [...] Physician [facility] (Per Emergency Physician): Interpretation per [...] 82. I also reviewed external records from [facility]. I discussed their care with none. Consideration for escalation of care with: Admission/observation discussed case with Dr. Blankenship, will place her on heparin, she does have reconstitution past the mid femoral occlusion and she has normal range of motion to the lower extremities but she has severe disease to the lower extremities will heparinize or admit her to [facility] in case she needs an emergent [...] Emergency Medicine Provider SEBASTIAN Herrera CNP 04/03/24 2239 [facility] 04-03-2024 Physician Emergency department Note Emergency Department Encounter [facility] Patient: Mel Pop [...] consulted recommends heparin drip and transferred to [facility], 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 Patient admitted to [facility]. Patient in agreement with plan. Diagnostics [...] [employer] Winifred Cornell DO 04/06/24 1625 [employer] Phone: 07-27-2023 History of Present illness Narrative [facility] [address] [place] [address] [place] [id number] Dept: [phone] Dept Mel Solizerd 1940 [id number] 07/27/2023 HISTORY OF PRESENT ILLNESS: Mel is [...] improve. Electronically signed by Ming Weinberg MD [facility] Department of Orthopedic surgery 07/27/2023 5:21 PM Voice recognition was used for portions of this note and although it was reviewed prior to signing some incorrect words or phrases could be present. documented in this encounter [facility] 07-06-2022 Miscellaneous Notes PATIENT INFORMATION Record ID: [id number] Patient [facility]: [facility]: [facility] Ismay: [facility] Attending: Iwona Chu Center: Internal Medicine and Geriatrics INSTRUCTIONS All Clear SN to remind patient of next upcoming appointment date, time, location All Clear All Clear All Clear SURVEY INFORMATION Medical/Nurse Credit Products Officer: Inés Tubbs 1. Your discharge instructions are [...] (Standard Question) No documented in this encounter [facility] 06-29-2022 Note HNO ID: [id number] Author: Joana Tolbert RPh Service: Pharmacy Author [...] Post discharge follow up instruction Joana Tolbert [facility] June 29, 2022 3:32 PM Medication [...] Your Medications These medications were sent to [facility] [address] [place] [address] Hours: Tuesday-Tuesday, 8am-4:30pm apixaban 5 mg (74 tabs) ascorbic acid (vitamin C) 500 mg tablet bacitracin 500 unit/gram ointment guaiFENesin 600 mg 12 hr tablet HYDROcodone-acetaminophen 5-325 mg per tablet lactobacillus rhamnosus 10 billion cell capsule metoprolol tartrate (short acting) [address] 40 mg tablet sucralfate 1 gram tablet [facility] 06-29-2022 Note HNO ID: [id number] Author: Kassidy Mejia RN Service: Care Management [...] needs and plan for meeting these needs: [facility] HANDOFF COMMUNICATION: TRANSPORTATION ARRANGEMENTS: Transportation Arrangements: Car ADDITIONAL CONTACT RESOURCES: [facility] was able to approve and deliver home O2. SIGNATURE: Kassidy Mejia RN PATIENT NAME: Mel Castillo DATE: June 29, 2022 TIME: 12:38 PM PAGER/CONTACT #: [phone] [facility] 06-28-2022 Note HNO ID: [id number] Author: Iwona Chu DO Service: Hospital Medicine Author Type: Physician Type: Progress Notes Filed: 06/28/2022 8:58 PM Note Text: Needs O2 arranged before discharge [facility] 06-28-2022 Note HNO ID: [id number] Author: Irene Han RN Service: Care Management [...] In Person (verbalized understanding) Referral sent to [facility] for home going O2. Awaiting ambulatory pox to be completed. Plan to return home with family support and HHC through [facility]. Family to transport. Will need home O2/HC orders, prior to dc. IMM completed. UPDATE @ 1435: [facility] is outside of the patient's service area. Additional DMR referrals sent to [facility] and [facility]; awaiting response. Will need accepting DMR provider and home O2 delivery, prior to discharge. Oxygen/HC orders in Epic. SIGNATURE: Irene Han RN PATIENT NAME: Mel Castillo DATE: June 28, 2022 TIME: 1:58 PM PAGER/CONTACT #: [phone] [facility] 06-28-2022 Note HNO ID: [id number] Author: Iwona Chu DO Service: Hospital Medicine [...] micropuncture needle and serially upsized to a 5-Luxembourger sheath. A venogram was then performed, which [...] time, the sheath was upsized to an 8-Luxembourger sheath. An intravascular ultrasound was performed. This [...] of overt GI (more content not included)... [facility] 06-27-2022 Note HNO ID: [id number] Author: Iwona Chu DO Service: Hospital Medicine [...] micropuncture needle and serially upsized to a 5-Luxembourger sheath. A venogram was then performed, which [...] time, the sheath was upsized to an 8-Luxembourger sheath. An intravascular ultrasound was performed. This [...] accept for hh (more content not included)... [facility] 06-26-2022 Note HNO ID: [id number] Author: Iwona Chu DO Service: Hospital Medicine [...] micropuncture needle and serially upsized to a 5-Luxembourger sheath. A venogram was then performed, which [...] time, the sheath was upsized to an 8-Luxembourger sheath. An intravascular ultrasound was performed. This [...] 06/22/22 rec subacute/SNF (more content not included)... [facility] 06-25-2022 Note HNO ID: [id number] Author: Hreon Ayers MD Service: Hospital Medicine Author Type: [...] 18107/02/22 0859 06/16/221944 vte current anticoag therapy (tx,pa) 06/16/221944 activity - mobilize patient ([place]) VTE Prophylaxis: VTE prophylaxis appropriate Disposition: Home Plan of care discussed with: Provider, RN, Patient SIGNATURE: Heron Ayers MD PATIENT NAME: Mel Castillo DATE: June 25, 2022 TIME: 12:03 PM etx [id number] [facility] 06-25-2022 Note HNO ID: [id number] Author: Kassidy eMjia RN Service: Care Management Author Type: Registered [...] 25, 2022 TIME: 11:30 AM PAGER/CONTACT #: [phone] [facility] 06-24-2022 Note HNO ID: [id number] Author: Richie Yi MD Service: General Internal Medicine Author Type: Physician Type: Progress Notes Filed: 06/24/2022 6:34 PM Note Text: DEPARTMENT OF HOSPITAL MEDICINE PROGRESS NOTE SERVICE DATE: 06/23/2022 SERVICE TIME: 7:19 PM Hospital Medicine/Primary Attending: Richie Yi MD NIGHT AND WEEKEND COVERAGE: [place] COVERAGE: After 7pm, please call cross cover pager #[phone] Subjective Patient was seen today. She is [...] 06/25/22 0300 06/16/221944 vte current anticoag therapy (tx,pa) 06/16/221944 activity - mobilize patient ([place]) VTE Prophylaxis: VTE prophylaxis appropriate Disposition: To be determined Plan of care discussed with: Provider, RN, Patient SIGNATURE: Richie Yi MD PATIENT NAME: Mel Castillo DATE: June 23, 2022 TIME: 7:19 PM etx [id number] [facility] 06-24-2022 Note HNO ID: [id number] Author: SHAQUILLE Kaye Service: Care Management Author Type: Hose Handler Type: Care Mgt Progress Note Filed: 06/24/2022 [...] 24, 2022 TIME: 1:02 PM PAGER/CONTACT #: [phone] [facility] 06-23-2022 Note HNO ID: [id number] Author: Richie Yi MD Service: General Internal Medicine Author Type: Physician Type: Progress Notes Filed: 06/23/2022 7:28 PM Note Text: DEPARTMENT OF HOSPITAL MEDICINE PROGRESS NOTE SERVICE DATE: 06/23/2022 SERVICE TIME: 7:19 PM Hospital Medicine/Primary Attending: Richie Yi MD NIGHT AND WEEKEND COVERAGE: [place] COVERAGE: After 7pm, please call cross cover pager #[phone] Subjective Patient was seen today. She is [...] 1028 -- 06/16/221944 vte current anticoag therapy ([place], [place]) 06/16/221944 activity - mobilize patient ([place]) VTE Prophylaxis: VTE prophylaxis appropriate Disposition: To be determined Plan of care discussed with: Provider, RN, Patient SIGNATURE: Richie Yi MD PATIENT NAME: Mel Castillo DATE: June 23, 2022 TIME: 7:19 PM etx [id number] [facility] 06-23-2022 Note HNO ID: [id number] Author: Kassidy Mejia RN Service: Care Management Author Type: Registered Nurse Type: Care Mgt Progress Note Filed: 06/23/2022 4:00 PM Note Text: CARE MANAGEMENT PROGRESS NOTE SERVICE DATE: 06/23/2022 SERVICE TIME: 3:55 PM LOS: 7 days Spoke with pt at the bedside. Discussed SNF placement. Auth obtained for [facility]- pt would be responsible for copay 50% of cost per day for days 1-100. Pt refusing SNF at this time. Pt would like to d/c home with her son and dtr-in-law to ([address] [place] [address]). [facility] [place]- Referrals sent. Pt may need home O2- await ambulatory pulse ox. Family likely able to transport at d/c. CM to follow. SIGNATURE: Kassidy Mejia RN PATIENT NAME: Mel Castillo DATE: June 23, 2022 TIME: 3:53 PM PAGER/CONTACT #: [phone] [facility] 06-22-2022 Note HNO ID: [id number] Author: Dwayne Zaidi MD Service: Hospital Medicine Author Type: Physician Type: Progress Notes Filed: 06/22/2022 6:47 PM Note Text: DEPARTMENT OF HOSPITAL MEDICINE PROGRESS NOTE SERVICE DATE: 06/22/2022 SERVICE TIME: 6:42 PM Hospital Medicine/Primary Attending: Dwayne Zaidi MD NIGHT AND WEEKEND COVERAGE: After 7pm please page [phone] CHIEF COMPLAINT: Follow-up for acute left lower [...] bowel sounds normally heard, no mass palpable TONGUE LINING STITCHER- cranial nerves 2 to 12 grossly [...] TPROT 5.3* -- (more content not included)... [facility] 06-22-2022 Note HNO ID: [id number] Author: Kassidy Mejia RN Service: Care Management Author Type: Registered Nurse Type: Care Mgt Progress Note Filed: 06/22/2022 10:15 AM Note Text: CARE MANAGEMENT PROGRESS NOTE SERVICE DATE: 06/22/2022 SERVICE TIME: 10:15 AM LOS: 6 days IMM Follow Up Copy Given: Yes Copy given to:: Patient Method: In Person (verbal) [facility] is able to accept pt. Precert tasked. Pt will need cot for transport. CM to follow. SIGNATURE: Kassidy Mejia RN PATIENT NAME: Mel Castillo DATE: June 22, 2022 TIME: 10:14 AM PAGER/CONTACT #: [phone] [facility] 06-21-2022 Note HNO ID: [id number] Author: Dwayne Zaidi MD Service: Hospital Medicine Author Type: Physician Type: Progress Notes Filed: 06/21/2022 4:10 PM Note Text: DEPARTMENT OF HOSPITAL MEDICINE PROGRESS NOTE SERVICE DATE: 06/21/2022 SERVICE TIME: 4:04 PM Hospital Medicine/Primary Attending: Dwayne Zaidi MD NIGHT AND WEEKEND COVERAGE: After 7pm please page [phone] CHIEF COMPLAINT: Follow-up for acute left lower [...] bowel sounds normally heard, no mass palpable TONGUE LINING STITCHER- cranial nerves 2 to 12 grossly [...] on file COPD (chronic obstructive pulmonary disease) ([facility]) POA: Status not on file Tobacco abuse [...] by weight. Has (more content not included)... [facility] 06-21-2022 Note HNO ID: [id number] Author: Kassidy Mejia RN Service: Care Management Author Type: Registered Nurse Type: Care Mgt Progress Note Filed: 06/21/2022 3:44 PM Note Text: CARE MANAGEMENT PROGRESS NOTE SERVICE DATE: 06/21/2022 SERVICE TIME: 3:41 PM LOS: 5 days Spoke with pt at the bedside. Pt states that she lives at home alone. PT/OT rec SNF. Pt would like [facility]- referral sent. Await acceptance. Pt will need precert when medically stable. Pt will need cot for transport. Cm to follow. SIGNATURE: Kassidy Mejia RN PATIENT NAME: Mel Castillo DATE: June 21, 2022 TIME: 3:41 PM PAGER/CONTACT #: [phone] [facility] 06-21-2022 Note HNO ID: [id number] Author: Primo Dodd APRN.SHAMIKA Service: Gastroenterology Author [...] evaluation given evidence (more content not included)... [facility] 06-20-2022 Note HNO ID: [id number] Author: Acacia Hardin DO Service: General Surgery Author Type: Resident Type: Plan of Care Filed: 06/20/2022 1:40 PM Note Text: Plan of Care Dr. 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 Spoke with Dr. Wilson, assistant operations manager for Dr. Rodriguez, and she states these [...] kg/m? Acacia Hardin DO 06/20/2022 1:36 PM [facility] 06-20-2022 Note HNO ID: [id number] Author: Dwayne Zaidi MD Service: Hospital Medicine Author Type: Physician Type: Progress Notes Filed: 06/20/2022 12:39 PM Note Text: DEPARTMENT OF HOSPITAL MEDICINE PROGRESS NOTE SERVICE DATE: 06/20/2022 SERVICE TIME: 12:35 PM Hospital Medicine/Primary Attending: Dwayne Zaidi MD NIGHT AND WEEKEND COVERAGE: After 7pm please page [phone] CHIEF COMPLAINT: Follow-up for acute left lower [...] bowel sounds normally heard, no mass palpable TONGUE LINING STITCHER- cranial nerves 2 to 12 grossly [...] previous IVC tahmina (more content not included)... [facility] 06-19-2022 Note HNO ID: [id number] Author: Dwayne Zaidi MD Service: Hospital Medicine Author Type: Physician Type: Progress Notes Filed: 06/19/2022 4:33 PM Note Text: DEPARTMENT OF HOSPITAL MEDICINE PROGRESS NOTE SERVICE DATE: 06/19/2022 SERVICE TIME: 4:29 PM Hospital Medicine/Primary Attending: Dwayne Zaidi MD NIGHT AND WEEKEND COVERAGE: After 7pm please page [phone] CHIEF COMPLAINT: Follow-up for acute left lower [...] bowel sounds normally heard, no mass palpable TONGUE LINING STITCHER- cranial nerves 2 to 12 grossly [...] interval not displayed. BMP: Recent Labs 06/19/22 0506/18/2241506/17/2250906/16/22 034 GLUC 115* 112* 84 122* NA [...] stools and andrew (more content not included)... [facility] 06-18-2022 Note HNO ID: [id number] Author: Emanuel Hull MD Service: General Surgery [...] Surgery PGY-3 June 18, 2022 5:39 PM [facility] 06-18-2022 Note HNO ID: [id number] Author: Dwayne Zaidi MD Service: Hospital Medicine Author Type: Physician Type: Progress Notes Filed: 06/18/2022 5:37 PM Note Text: DEPARTMENT OF HOSPITAL MEDICINE PROGRESS NOTE SERVICE DATE: 06/18/2022 SERVICE TIME: 5:35 PM Hospital Medicine/Primary Attending: Dwayne Zaidi MD NIGHT AND WEEKEND COVERAGE: After 7pm please page [phone] CHIEF COMPLAINT: Follow-up for acute left lower [...] bowel sounds normally heard, no mass palpable TONGUE LINING STITCHER- cranial nerves 2 to 12 grossly [...] today's visit: Lab data: CBC: Recent Labs 06/18/2241506/17/22 0510 06/16/22 0826 06/16/22 034 WBC 8.77 8.61 10.43 15.82* HB 8.5* [...] not displayed. BMP: Recent Labs 06/18/2241506/17/22 0510 06/16/22 034 GLUC 112* 84 122* [...] + Bolus for (more content not included)... [facility] 06-18-2022 Note HNO ID: [id number] Author: Kassidy Mejia RN Service: Care Management [...] help with IA. Per notes await PT/OT debbie- no currently order for therapy, notified. Cm to follow clinical progress. SIGNATURE: Kassidy Mejia RN PATIENT NAME: Mel Castillo DATE: June 18, 2022 TIME: 3:46 PM PAGER/CONTACT #: [phone] [facility] 06-17-2022 Note HNO ID: [id number] Author: Eliza Parikh RN Service: Nursing Author Type: Registered Nurse Type: Nursing Progress Note Filed: 06/17/2022 7:24 PM Note Text: Pt to 4200 via bed. Pt tolerated well. [facility] 06-17-2022 Note HNO ID: [id number] Author: Eliza Parikh RN Service: Nursing Author Type: Registered Nurse Type: Nursing Progress Note Filed: 06/17/2022 4:35 PM Note Text: Report to [address] FR[address]A [facility] 06-17-2022 Note HNO ID: [id number] Author: Efrain Ivey (Program Management Intern) Service: Pharmacy Author Type: Victim Advocate Type: Plan of Care Filed: 06/17/2022 2:16 PM Note Text: PHARMACY MEDICATION REVIEW Patient Name: Mel Castillo : 1940 The following medications were updated within the MATERIAL HANDLER 2ND SHIFT medication list: Medications ADDED to MATERIAL HANDLER 2ND SHIFT medication list amLODIPine (NORVASC) 10 mg tablet OTHER Yes Yes dexAMETHasone (DECADRON) 4 mg tablet OTHER Yes Yes lisinopril (ZESTRIL, PRINIVIL) 5 mg tablet OTHER Yes Yes RX filled via [facility] and verified with pt. herself Medications CHANGED on MATERIAL HANDLER 2ND SHIFT medication list na Medications REMOVED from MATERIAL HANDLER 2ND SHIFT medication list na Additional comments: I was able to talk with the pt. about her home medications. She states she takes the 3 RX medications recorded below. These 3 medications were added to her MATERIAL HANDLER 2ND SHIFT list. She has finished Paxlovid and a physician stopped Augmentin per pt. interview Required follow up for nursing. Medication history completed by Historian. No nursing follow up required. The below information represents the best possible medication history: Yes Medication history completed by: Victim Advocate: Efrain Ivey (Imindi) Source of history: Patient: Reliability of source: Appears reliable, clearly identified: Medication name, Medication dose, Medication route, and Medication frequency and Pharmacy records: Epic e-script [facility] Medication nonadherence identified: No barriers noted Reconciliation completed: No, pharmacist not yet reviewed Patient interested in Bedside Delivery Services or using OP Pharmacy at discharge? No Preferred outpatient pharmacy: [id number] [place] [address] - [address] [phone] Allergies: Percocet [Oxycodone* Itching Prior to Admission [...] once daily. Facility-Administered Medications: None Efrain Ivey (Imindi) phone [phone] 06/17/2022 [facility] 06-17-2022 Note HNO ID: [id number] Author: Ladan Adame RN Service: Care Management [...] 17, 2022 TIME: 12:37 PM PAGER/CONTACT #: [phone] [facility] 06-17-2022 Note HNO ID: [id number] Author: Eliza Parikh RN Service: Nursing Author Type: Registered Nurse Type: Nursing Progress Note Filed: 06/17/2022 10:40 AM Note Text: Echo at bedside [facility] 06-16-2022 Note HNO ID: [id number] Author: Cirilo Alaniz APRN.CRNA Service: Anesthesiology Author Type: Nurse Senior Project Manager Type: Anesthesia Procedure Notes Filed: 06/16/2022 5:04 PM Note Text: ANESTHESIOLOGY PROCEDURE NOTE Airway General Information Procedure Start Time/Medication Administration: 06/16/2022 4:29 PM Patient location during procedure: OR Timeout Performed Pre-procedure: timeout performed Consent Obtained: Yes Patient identity confirmed: arm band and patient Staffing SHACTOR: Cirilo Alaniz APRN.SHACTOR Indications and Patient Condition Indications for airway management: anesthesia Preoxygenated: yes anesthesia circuit Method: asleep Difficult Mask: No Final Airway Details Final airway type: endotracheal airway Final Endotracheal Airway: ETT Cuffed: yes Successful intubation technique: video laryngoscopy Devices used: AwesomePiece Endotracheal tube insertion site: oral Blade: Kit Blade size: #3 ETT size (mm): 7.0 Measured from: lips Measurement (cm): 21 Placement verified by: chest auscultation and capnometry Cormack-Lehane Classification: grade I - full view of glottis Number of attempts at approach: 1 Airway not difficult SIGNATURE: Cirilo Alaniz APRN.CRNA PATIENT NAME: Mel Castillo DATE: June 16, 2022 TIME: 5:03 PM CSN: [id number] [facility] 06-16-2022 Note HNO ID: [id number] Author: Jean Pierre Gamboa RPh Service: Pharmacy [...] in the care for this patient. Signature: JeanP ierre Gamboa tim Pager/Extension: [phone] [facility] 05-17-2022 History of Present [...] be seen in the emergency room at [facility] for probable admission for IV antibiotics and airway concern. Patient understands this and will leave shortly. Josiah Barnes MD Findings will be communicated to the referring physician via mail or electronic medical record. documented in this encounter [facility] 05-14-2022 Instructions Jared Velazquez PA-C - 05/14/2022 [...] Jared Velazquez PA-C documented in this encounter [facility] 05-14-2022 History of Present illness Narrative Images [...] which included preparing to see the patient, [id number] patient care, completing clinical documentation, performing a medically appropriate examination, counseling and educating the patient/family/caregiver, and ordering medications, tests, or procedures. 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 [facility] Diagnosis Acute bacterial sialadenitis- Primary Bashir's, angina [facility] Diagnosis Localized swelling, mass and lump, neck Swelling, mass, or lump in head and neck [facility] Localized swelling, mass and lump, neck Swelling, mass, or lump in head and neck [facility] Diagnosis Localized swelling, mass and lump, neck- Primary Swelling, mass, or lump in head and neck Localized swelling, mass and lump, neck Swelling, mass, or lump in head and neck [facility] Diagnosis Other specified soft tissue disorders [facility] Diagnosis Localized swelling, mass and lump, neck- Primary Swelling, mass, or lump in head and neck Localized swelling, mass and lump, neck Swelling, mass, or lump in head and neck [facility] Diagnosis Abnormal findings on diagnostic imaging of other specified body structures Pain in left leg [facility] 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[facility] Diagnosis Other specified soft tissue disorders- Primary Other specified soft tissue disorders [facility] Diagnosis Abnormal findings on diagnostic imaging of other specified body structures- Primary Pain in left leg Abnormal findings on diagnostic imaging of other specified body structures Pain in left leg [facility] Diagnosis Peripheral arterial disease (HCC)- Primary Unspecified peripheral vascular disease Right leg pain Pain in soft tissues of limb Peripheral arterial disease (HCC) Unspecified peripheral vascular disease Right leg weakness Muscle weakness (generalized) Atrial fibrillation, unspecified type (HCC) Ischemic leg Unspecified circulatory system disorder [facility] Diagnosis Deep vein thrombosis (DVT) of lower extremity, unspecified chronicity, unspecified laterality, unspecified vein (HCC)- Primary [facility] Diagnosis Atrial fibrillation, unspecified type (HCC) Acute venous embolism and thrombosis of deep vessels of proximal end of right lower extremity (HCC) [facility] Diagnosis Acute deep vein thrombosis (DVT) of iliac vein of right lower extremity (HCC)- Primary PAD (peripheral artery disease) (HCC) Unspecified peripheral vascular disease [facility] Diagnosis Deep vein thrombosis (DVT) of lower extremity, unspecified chronicity, unspecified laterality, unspecified vein (HCC) Atrial fibrillation, unspecified type (HCC) Acute venous embolism and thrombosis of deep vessels of proximal end of right lower extremity (HCC) [facility] Atrial fibrillation, unspecified type (HCC) Acute venous embolism and thrombosis of deep vessels of proximal end of right lower extremity (HCC) [facility] Diagnosis Atrial fibrillation, unspecified type (HCC) Acute venous embolism and thrombosis of deep vessels of proximal end of right lower extremity (HCC) documented in this encounter [facility] note* Diagnosis Paroxysmal atrial fibrillation (HCC) Atrial fibrillation documented in this encounter [facility] note* Diagnosis Atrial fibrillation, unspecified type (HCC) [...] or 3b CKD (HCC) 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 Nicotine use disorder Tobacco use disorder Abnormal echocardiogram Nonspecific (abnormal) findings on radiological and other examination of other intrathoracic organs Left atrial mass documented in this encounter [facility] note* Diagnosis Retinal detachment, right- Primary Unspecified retinal detachment Vision loss of right eye Unqualified visual loss, one eye Acute intractable headache, unspecified headache type Visual disturbance, subjective Unspecified subjective visual disturbance Vision loss of right eye Unqualified visual loss, one eye Visual disturbance, subjective Unspecified subjective visual disturbance documented in this encounter [facility] note* Diagnosis 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 Hemorrhagic choroidal detachment Dislocation of intraocular lens, initial encounter [facility] Diagnosis 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 Hemorrhagic choroidal detachment [facility] Diagnosis 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 Hemorrhagic choroidal detachment Dislocation of intraocular lens, initial encounter Hemorrhagic choroidal detachment of right eye Hemorrhagic choroidal detachment [facility] Diagnosis 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 Hemorrhagic choroidal detachment Hemorrhagic choroidal detachment of right eye Hemorrhagic choroidal detachment [facility]* Diagnosis Postoperative eye state- Primary Other states following surgery of eye and adnexa Hemorrhagic choroidal detachment of right eye Hemorrhagic choroidal detachment Pseudophakia, right eye Lens replaced by other means Subluxation of right lens Subluxation of lens [facility] Diagnosis Paroxysmal atrial fibrillation (HCC)- Primary Atrial fibrillation Paroxysmal atrial fibrillation (HCC) Atrial fibrillation documented in this encounter [facility] note* Diagnosis Postoperative eye state Other states following surgery of eye and adnexa Hemorrhagic choroidal detachment of right eye Hemorrhagic choroidal detachment Pseudophakia, right eye Lens replaced by other means Subluxation of right lens Subluxation of lens Hemorrhagic choroidal detachment of right eye Hemorrhagic choroidal detachment [facility]* Diagnosis Post-operative state- Primary Other postprocedural status documented in this encounter [facility] note* Diagnosis Postoperative eye state Other states following surgery of eye and adnexa Hemorrhagic choroidal detachment of right eye Hemorrhagic choroidal detachment Pseudophakia, right eye Lens replaced by other means Subluxation of right lens Subluxation of lens [facility]* Diagnosis Aspiration pneumonitis (CMS/HCC) (HCC)- Primary Pneumonitis due to inhalation of food or vomitus Aspiration pneumonitis (CMS/HCC) (HCC) Pneumonitis due to inhalation of food or vomitus Vomiting and diarrhea LORENZA (acute kidney injury) (HCC) documented in this encounter [facility] note* Diagnosis Acute deep vein thrombosis (DVT) of iliac vein of right lower extremity (HCC)- Primary PAD (peripheral artery disease) (HCC) Unspecified peripheral vascular disease documented in this encounter [facility] note* Diagnosis Postoperative eye state Other states following surgery of eye and adnexa Hemorrhagic choroidal detachment of right eye Hemorrhagic choroidal detachment Pseudophakia, right eye Lens replaced by other means Subluxation of right lens Subluxation of lens [facility]* Diagnosis 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 Hemorrhagic choroidal detachment Right retinal detachment Unspecified retinal detachment Postoperative eye state Other states following surgery of eye and adnexa Pseudophakia, right eye Lens replaced by other means Subluxation of right lens Subluxation of lens [facility] noteNo assessment information availableWSumma [facility] Work Phone: Evaluation note* Diagnosis PAD (peripheral artery disease) (HCC)- Primary Unspecified peripheral vascular disease Skin ulcer of toe of right foot, limited to breakdown of skin (HCC) documented in this encounter [facility] note* Diagnosis Critical limb ischemia of right lower extremity (HCC)- Primary [facility]* Diagnosis Pre-op evaluation- Primary Skin ulcer of right great toe (HCC) Critical limb ischemia of right lower extremity (HCC) [facility] Diagnosis Skin ulcer of toe of right foot, limited to breakdown of skin (HCC)- Primary PAD (peripheral artery disease) (HCC) Unspecified peripheral vascular disease Aftercare following surgery of the circulatory system Aftercare following surgery of the circulatory system, NEC [facility] Diagnosis Skin ulcer of toe of right foot, limited to breakdown of skin (HCC) PAD (peripheral artery disease) (HCC) Unspecified peripheral vascular disease Aftercare following surgery of the circulatory system Aftercare following surgery of the circulatory system, NEC [facility] Diagnosis Aftercare following surgery of the circulatory system- Primary Aftercare following surgery of the circulatory system, NEC PAD (peripheral artery disease) (HCC) Unspecified peripheral vascular disease [facility] Diagnosis 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 Hemorrhagic choroidal detachment documented in this encounter [facility] note* Diagnosis Right retinal detachment- Primary Unspecified retinal detachment Hemorrhagic choroidal detachment of right eye Hemorrhagic choroidal detachment Pseudophakia, right eye Lens replaced by other means documented in this encounter [facility] note* Diagnosis Acute deep vein thrombosis (DVT) of proximal vein of lower extremity, unspecified laterality (HCC)- Primary [facility]ative[facility]No reason for referral information availableWSumma [facility] Work Phone: Reason for visit Narrative* Imaging (Routine) - Closed Specialty Diagnoses / Procedures Referred By Elvin leyva Referred To Contact Cardiology Diagnoses Paroxysmal atrial fibrillation (HCC) Procedures Transthoracic echocardiogram (TTE) complete with contrast, bubble, strain, and 3D PRN WY ECHO TTHRC R-T 2D W/WOM-MODE COMPL SPEC&COLR D WY TTE W OR WO FOL NICKY RAMIREZ Rachel, MD [address] [place] [phone] Phone: tel: fax: Referral ID Status Reason Start Date Expiration Date Visits Re quested Visits Authorized [id number] Closed 04/20/2024 04/20/2025 1 1 [facility] for visit Narrative* Auth/Cert (Routine) Specialty Diagnoses / Procedures Referred By Elvin leyva Referred To Contact Diagnoses Aspiration pneumonitis (CMS/HCC) (HCC) LORENZA (acute kidney injury) (HCC) Vomiting and diarrhea Procedures . bAbi Long DO [address] [place] [address] Phone: tel: fax: [facility] [address] [place] [address] Phone: tel: Referral ID Status Reason Start Date Expiration Date Visits Re quested Visits Authorized [id number] 1 1 [facility] [employer] for visit Narrative* Auth/Cert (Routine) Specialty Diagnoses [...] CATH RS&I CHG AORTOGRAPHY ABDOMINAL SERIALOGRAPHY RS&I WY INTRODUCTION CATHETER AORTA WY REVSC OPN/PRG FEM/POP W/ANGIOPLASTY UNI WY REVSC OPN/PRQ TIB/PAMELA W/ANGIOPLASTY UNI WY REVSC OPN/PRQ TIB/PAMELA W/STNT/ANGIOP SM VSL WY REVSC OPN/PRQ FEM/POP W/STNT/ANGIOP SM VSL AORTOILIAC ANGIOGRAPHY, RIGHT LOWER EXTREMITY ANGIOGRAPHY WITH RUNOFF, POSSIBLE SUPERFICIAL FEMORAL ARTERY/POPLITEAL/TIBIAL ANGIOPLASTY/STENTING Kristyn Blankenship MD [address] [address] Phone: tel: fax: [facility] MAIN OR [address] [facility] [place] [address] Phone: tel: Referral ID Status Reason Start Date Expiration Date Visits Re quested Visits Authorized [id number] 1 1 [facility] for visit Narrative* Imaging (Routine) - Closed Specialty Diagnoses / Procedures Referred By Elvin t Referred To Contact Vascular Surgery / Radiology Diagnoses Skin ulcer of toe of right foot, limited to breakdown of skin (HCC) PAD (peripheral artery disease) (HCC) Aftercare following surgery of the circulatory system Procedures Vascular US lower extremity arterial duplex right with MICHELLE Kristyn Blankenship MD [address] [place] [address] Phone: tel: fax: [facility] Imaging [address] [place] [address] Phone: tel: fax: Referral ID Status Reason Start Date Expiration Date Visits Re quested Visits Authorized [id number] Closed 12/05/2024 12/05/2025 1 1 [facility] Discharge Instructions * Attachments The following attachments cannot be sent through Care Everywhere. * Pulp-Space Infection (Latvian) documented in this encounter* Instructions* Tiffany Zhu [...] Documents on File Type Date Recorded Patient Editorial Cartoonist Expl anation Power of Erp Consultant 04/06/2024 10:04 AM Date Activated Date Inactivated [...] Documents on File Type Date Recorded Patient Editorial Cartoonist Expl anation Power of Erp Consultant 04/16/2024 1:26 PM Power of Erp Consultant 04/06/2024 10:04 AM Healthcare Agents on File [...] Documents on File Type Date Recorded Patient Editorial Cartoonist Expl anation Power of Erp Consultant 04/16/2024 1:26 PM Power of Erp Consultant 04/06/2024 10:04 AM Date Activated Date Inactivated [...] Documents on File Type Date Recorded Patient Editorial Cartoonist Expl anation Advance Directive(s) 06/27/2024 12:58 PM [...] Documents on File Type Date Recorded Patient Editorial Cartoonist Expl anation Advance Directive(s) 06/27/2024 12:58 PM [...] Name Relationship Healthcare Agent Relationship Communication Damaris GARZA NOT CALL-TERMINALLY ILL [place] Friend First Alternate Health Care Agent Nadira Castillo Mother First Alternat e Health Care Agent Date Activated Date Inactivated Comments 07/07/2024 12:21 PM 07/18/2024 5:56 PM Documents on File Type Date Recorded Patient Editorial Cartoonist Expl anation DNR (Do Not Resuscitate) 07/13/2024 10:35 AM Power of Erp Consultant 04/16/2024 1:26 PM Power of Erp Consultant 04/06/2024 10:04 AM Date Activated Date Inactivated [...] Documents on File Type Date Recorded Patient Editorial Cartoonist Expl anation DNR (Do Not Resuscitate) 07/13/2024 10:35 AM Power of Erp Consultant 04/16/2024 1:26 PM Power of Erp Consultant 04/06/2024 10:04 AM Date Activated Date Inactivated [...] First Alternate Health Care Agent Nadira Castillo Houcubgs-yh-chb First Alternat e Health Care Agent Healthcare Agents on File Name Relationship Healthcare Agent Relationship Communication Damaris DO NOT CALL-TERMINALLY ILL [place] Friend First Alternate Health Care Agent Nadira Castillo Tfvgzcqt-iq-ocv First Alternat e Health Care Agent Healthcare Agents on File Name Relationship Healthcare Agent Relationship Communication Damaris DO NOT CALL-TERMINALLY ILL [place] Friend First Alternate Health Care Agent Nadira Castillo Ejnmjxha-oy-nfo First Alternat e Health Care Agent Date Activated Date Inactivated Comments 08/03/2024 10:17 AM 08/16/2024 4:47 PM Healthcare Agents on File Name Relationship Healthcare Agent Relationship Communication Damaris DO NOT CALL-TERMINALLY ILL [place] Friend First Alternate Health Care Agent Nadira Castillo Ozfcbpoq-dv-esx First Alternat e Health Care Agent Healthcare Agents on File Name Relationship Healthcare Agent Relationship Communication Damaris DO NOT CALL-TERMINALLY ILL [place] Friend First Alternate Health Care Agent Nadira Castillo Kbndbzzj-ff-fpp First Alternat e Health Care Agent Healthcare Agents on File Name Relationship Healthcare Agent Relationship Communication Damaris DO NOT CALL-TERMINALLY ILL [place] Friend First Alternate Health Care Agent Nadira Castillo Glmculsp-gu-pjt First Alternat e Health Care Agent Healthcare Agents on File Name Relationship Healthcare Agent Relationshi p Communication Nadira Castillo Fxylmarj-ci-rwz First Alternat e Health Care Agent Healthcare Agents on File Name Relationship Healthcare Agent Relationshi p Communication Nadira Castillo Chwyzcyl-bv-bzy First Alternat e Health Care Agent Summary [...] gland swelling Procedures CONSULT TO ENT OFFICE/OUTPATIENT [facility] 60-74 MINUTES Jared Velazquez PA-C [address] [place] [address] Referral ID Status Reason Start Date Expiration Date Visits Requested Visits Authorized [id number] Authorized PCP Requested Referral 2 05/14/2023 1 1 Specialty Diagnoses / Procedures Referred By Elvin leyva Referred To Contact Radiology Diagnoses Localized swelling, mass and lump, neck Procedures CT soft tissue neck w IV contrast Jared Evans MD [address] [place] [phone] Referral ID Status Reason Start Date Expiration Date Visits Re quested Visits Authorized [id number] Closed 03/08/2023 04/07/2023 1 1 Specialty Diagnoses / Procedures Referred By Contac t Referred To Contact Cardiology Diagnoses Other specified soft tissue disorders Procedures Vascular US lower extremity venous duplex left aJred Evans MD [address] [place] [phone] Referral ID Status Reason Start Date Expiration Date V isits Requested Visits Authorized [id number] Pending Review 05/24/2023 05/23/2024 1 1 Specialty Diagnoses / Procedures Referred By Contac t Referred To Contact Radiology Diagnoses Abnormal findings on diagnostic imaging of other specified body structures Pain in left leg Procedures MR tibia fibula left w and wo IV contrast Jared Evans MD [address] [place] [phone] Referral ID Status Reason Start Date Expiration Date Visits Re quested Visits Authorized [id number] Closed 06/01/2023 05/31/2024 1 1 Health Concerns Infection Onset Date Last Indicated Resolved Time COVID-19 Confirmed Comment:First positive per [facility] system 06/02/2022. 06/16/2022 06/16/2022 06/19/2022 5:[address] Chief Complaint and Reason for Visit Chief Complaint Admit Date LABWORK August 20, 2024 5 :22am LABWORK September 03, 2024 5:00am [facility] LAB WORK September 03 8:18am [facility] LAB WORK September 10 5:00am Chief Complaint Admit Date LABWORK August 20, 2024 5 :22am LABWORK September 03, 2024 5:00am [facility] LAB WORK September 03 8:18am [facility] LAB WORK September 10 5:00am [facility] LAB WORK September 17, 2024 4: 00am Chief Complaint Admit Date LABWORK August 20, 2024 5 :22am LABWORK September 03, 2024 5:00am [facility] LAB WORK September 03 8:18am [facility] LAB WORK September 10 5:00am [facility] LAB WORK September 17, 2024 4: 00am [facility] LAB WORK October 08, 2024 5 :00am Additional Source Comments Reason for Visit (unrecogniz ed section and content) Reason Comments Post-op (Ophthalmology) Right Eye Specialty Diagnoses / Procedures Referred By Elvin leyva Referred To Contact HOSP INPATIENT Diagnoses Retinal detachment Acute retinal detachment Retinal detachment Procedures [facility]AL [facility] TRE[facility] OT [facility] [address] [place] [address] Referral ID Status Reason Start Date Expiration Date Visits Re quested Visits Authorized [id number] 1 1 Reason Comments Hemorrhagic choroidal detachment [...] gland swelling Procedures CONSULT TO ENT OFFICE/OUTPATIENT [facility] 60-74 MINUTES Jared Velazquez PA-C [address] [place] [address] Referral ID Status Reason Start Date Expiration Date V isits Requested Visits Authorized [id number] Closed PCP Requested Referral 05/14/2022 05/14/2023 1 1 Reason Comments Follow Up Gyant interaction - F/U - attempt made. No answer. Reason Comments Follow Up Phone Call All Clear Specialty Diagnoses / Procedures Referred By Elvin leyva Referred To Contact Radiology Diagnoses Localized swelling, mass and lump, neck Procedures CT soft tissue neck w IV contrast Jared Evans MD [address] [place] [phone] Referral ID Status Reason Start Date Expiration Date Visits Re quested Visits Authorized [id number] Closed 03/08/2023 04/07/2023 1 1 Specialty Diagnoses / Procedures Referred By Elvin leyva Referred To Contact Cardiology Diagnoses Other specified soft tissue disorders Procedures Vascular US lower extremity venous duplex left Jared Evans MD [address] [place] [phone] Referral ID Status Reason Start Date Expiration Date V isits Requested Visits Authorized [id number] Pending Review 05/24/2023 05/23/2024 1 1 Specialty Diagnoses / Procedures Referred By Contac t Referred To Contact Radiology Diagnoses Abnormal findings on diagnostic imaging of other specified body structures Pain in left leg Procedures MR tibia fibula left w and wo IV contrast Jared Evans MD [address] [place] [phone] Referral ID Status Reason Start Date Expiration Date Visits Re quested Visits Authorized [id number] Closed 06/01/2023 05/31/2024 1 1 Reason Comments New Patient Mass left LE Specialty Diagnoses / Procedures Referred By Contac t Referred To Contact Sports Medicine Diagnoses Pain in leg, unspecified Jared Evans MD [address] [place] [phone] [place] [address] Referral ID Status Reason Start Date Expiration Date Visits Re quested Visits Authorized [id number] Closed 07/06/2023 07/05/2024 1 1 Reason Comments Numbness Leg Swelling Specialty Diagnoses / Procedures Referred By Contac t Referred To Contact Diagnoses Right leg pain Peripheral arterial disease (HCC) Right leg weakness Atrial fibrillation, unspecified type (HCC) Procedures . Pratibha Avelar, [address] [place] [address] [phone] Referral ID Status Reason Start Date Expiration Date Visits Re quested Visits Authorized [id number] 1 1 Reason Comments Follow-up 1st follow up RLE me chanical thrombectomy 04/06/24 (Krzysztof) Reason Onset Date Comments Med Refill 04/27/2024 Specialty Diagnoses / Procedures Referred By Contac t Referred To Contact Diagnoses [I63.9] - Cerebral infarction [facility] [address] [place] [address] Referral ID Status Reason Start Date Expiration Date V isits Requested Visits Authorized [id number] New Request 06/20/2024 08/19/2024 Reason Comments Eye Problem Pt reports blurred v ision, dizziness, and headache. LNW 07/04/24 @ 2130. Hx of strokes x 2, HTN, Afib, and right eye retinal detachment. Specialty Diagnoses / Procedures Referred By Elvin leyva Referred To Contact Diagnoses Retinal detachment, right Vision loss of right eye Procedures . Silvio Peres MD [address] [place] [address] Phone: tel: fax: [facility] EMERGENCY DEPT [address] [place] [phone] Phone: tel: Referral ID Status Reason Start Date Expiration Date Visits Re quested Visits Authorized [id number] 1 1 Reason Comments Eye Pain Right [...] OF VITREOUS, CHOROIDAL FLUID, PARS PLANA APPROACH [facility] [address] [address] Referral ID Status Reason Start Date Expiration Date Visits Re quested Visits Authorized [id number] 1 1 Reason Comments 1 week post [...] and diarrhea Procedures . Abbi Long DO [address] [place] [address] Phone: tel: fax: [facility] [address] [place] [address] Phone: tel: Referral ID Status Reason Start Date Expiration Date Visits Re quested Visits Authorized [id number] 1 1 Reason Comments Follow-up 3 month follow up, P AD check ( [facility]) Reason Comments Post-op (Ophthalmology) Right Eye 1 marisela h Reason Comments Post op OD Reason Comments Follow-up R leg pain with grea t toe wound-PVR and CTA w runoff 03/2024 Reason Comments Follow-up 1st follow up RLE an juliana, possible SFA/pop/tib angioplasty/stenting 11/22/24 Reason Comments 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; 2nd follow up RLE angio, SFA/pop/tib angioplasty/stenting 11/22/24 ([facility] [phone]) Reason Comments Post-op (Ophthalmology) Right Eye Retinal Detachment OD Eye Crusting OD In the mornings Reason Comments Follow-up INFORMATION SOURCE (unrecogn ized section and content) DATE CREATED AUTHOR 03/13/2020 [facility] DATE CREATED AUTHOR AUTHOR'S ORGANIZ ATION 06/30/2022 [facility] DATE CREATED AUTHOR AUTHOR'S ORGANIZ ATION 07/10/2024 [facility] DATE CREATED AUTHOR AUTHOR'S ORGANIZ ATION 12/14/2024 [facility] DATE CREATED AUTHOR AUTHOR'S ORGANIZ ATION 01/05/2025 [facility] DATE CREATED AUTHOR AUTHOR'S ORGANIZ ATION 03/12/2025 [facility] DATE CREATED AUTHOR AUTHOR'S ORGANIZ ATION 03/17/2025 [facility] Source Comments (unrecognize d section and content) In the event this informatio n is protected by the Federal Confidentiality of Alcohol and Drug Abuse Patient Records regulations: The Federal rules restrict any use of the information to criminally investigate or prosecute any alcohol or drug abuse patient.[facility] the event this information is protected by the Federal Confidentiality of Alcohol and Drug Abuse Patient Records regulations: The Federal rules restrict any use of the information to criminally investigate or prosecute any alcohol or drug abuse patient.[facility] the event this information is protected by the Federal Confidentiality of Alcohol and Drug Abuse Patient Records regulations: The Federal rules restrict any use of the information to criminally investigate or prosecute any alcohol or drug abuse patient.[facility] the event this information is protected by the Federal Confidentiality of Alcohol and Drug Abuse Patient Records regulations: The Federal rules restrict any use of the information to criminally investigate or prosecute any alcohol or drug abuse patient.[facility] the event this information is protected by the Federal Confidentiality of Alcohol and Drug Abuse Patient Records regulations: The Federal rules restrict any use of the information to criminally investigate or prosecute any alcohol or drug abuse patient.[facility] the event this information is protected by the Federal Confidentiality of Alcohol and Drug Abuse Patient Records regulations: The Federal rules restrict any use of the information to criminally investigate or prosecute any alcohol or drug abuse patient.[facility]edo[facility] the event this information is protected by the Federal Confidentiality of Alcohol and Drug Abuse Patient Records regulations: The Federal rules restrict any use of the information to criminally investigate or prosecute any alcohol or drug abuse patient.[facility] the event this information is protected by the Federal Confidentiality of Alcohol and Drug Abuse Patient Records regulations: The Federal rules restrict any use of the information to criminally investigate or prosecute any alcohol or drug abuse patient.[facility] the event this information is protected by the Federal Confidentiality of Alcohol and Drug Abuse Patient Records regulations: The Federal rules restrict any use of the information to criminally investigate or prosecute any alcohol or drug abuse patient.[facility]edo[facility] the event this information is protected by the Federal Confidentiality of Alcohol and Drug Abuse Patient Records regulations: The Federal rules restrict any use of the information to criminally investigate or prosecute any alcohol or drug abuse patient.[facility]edo[facility] the event this information is protected by the Federal Confidentiality of Alcohol and Drug Abuse Patient Records regulations: The Federal rules restrict any use of the information to criminally investigate or prosecute any alcohol or drug abuse patient.[facility]edo[facility] the event this information is protected by the Federal Confidentiality of Alcohol and Drug Abuse Patient Records regulations: The Federal rules restrict any use of the information to criminally investigate or prosecute any alcohol or drug abuse patient.[facility] the event this information is protected by the Federal Confidentiality of Alcohol and Drug Abuse Patient Records regulations: The Federal rules restrict any use of the information to criminally investigate or prosecute any alcohol or drug abuse patient.[facility]edo[facility] the event this information is protected by the Federal Confidentiality of Alcohol and Drug Abuse Patient Records regulations: The Federal rules restrict any use of the information to criminally investigate or prosecute any alcohol or drug abuse patient.[facility]edo[facility] the event this information is protected by the Federal Confidentiality of Alcohol and Drug Abuse Patient Records regulations: The Federal rules restrict any use of the information to criminally investigate or prosecute any alcohol or drug abuse patient.[facility]edo[facility] the event this information is protected by the Federal Confidentiality of Alcohol and Drug Abuse Patient Records regulations: The Federal rules restrict any use of the information to criminally investigate or prosecute any alcohol or drug abuse patient.[facility]edo[facility] the event this information is protected by the Federal Confidentiality of Alcohol and Drug Abuse Patient Records regulations: The Federal rules restrict any use of the information to criminally investigate or prosecute any alcohol or drug abuse patient.[facility]edo[facility] the event this information is protected by the Federal Confidentiality of Alcohol and Drug Abuse Patient Records regulations: The Federal rules restrict any use of the information to criminally investigate or prosecute any alcohol or drug abuse patient.[facility]edo[facility] the event this information is protected by the Federal Confidentiality of Alcohol and Drug Abuse Patient Records regulations: The Federal rules restrict any use of the information to criminally investigate or prosecute any alcohol or drug abuse patient.[facility] Care Teams (unrecognized sec tion and content) Ticket Sorter Relationship Specialty Start Date End Date Pcp, No PCP - General 01/30/22 08/17/22 Ticket Sorter Relationship Specialty Start Date End Date Pcp, No PCP - General 01/30/22 08/17/22 Ticket Sorter Relationship Specialty Start Date End Date Jared Evans MD [address] [place] [phone] PCP - General Family Medicine 05/18/22 Ticket Sorter Relationship Specialty Start Date End Date Jared Evans MD [address] [place] [phone] PCP - General Family Medicine 05/18/22 Ticket Sorter Relationship Specialty Start Date End Date Jared Evans MD [address] [place] [phone] PCP - General Family Medicine 05/18/22 Ticket Sorter Relationship Specialty Start Date End Date Jared Evans MD [address] [place] [address] PCP - General 03/06/20 Ticket Sorter Relationship Specialty Start Date End Date Jared Evans MD [address] [place] [address] PCP - General 03/06/20 Ticket Sorter Relationship Specialty Start Date End Date Jared Evans MD [address] [place] [address] PCP - General 03/06/20 Ticket Sorter Relationship Specialty Start Date End Date Jared Evans MD [address] [place] [address] PCP - General 03/06/20 Ticket Sorter Relationship Specialty Start Date End Date Jared Evans MD [address] [place] [address] PCP - General 03/06/20 Ticket Sorter Relationship Specialty Start Date End Date Jared Evans MD [address] [place] [address] PCP - General 03/06/20 Ticket Sorter Relationship Specialty Start Date End Date Jared Evans MD [address] [place] [address] PCP - General 03/06/20 Ticket Sorter Relationship Specialty Start Date End Date Jared Evans MD [address] [place] [address] PCP - General 03/06/20 Ticket Sorter Relationship Specialty Start Date End Date Jared Evans MD [address] [place] [address] PCP - General 03/06/20 Ticket Sorter Relationship Specialty Start Date End Date Jared Evans MD [address] [place] [address] PCP - General 03/06/20 Ticket Sorter Relationship Specialty Start Date End Date Jared Evans MD [address] [place] [address] PCP - General 03/06/20 Ticket Sorter Relationship Specialty Start Date End Date Jared Evans MD [address] [place] [address] PCP - General 03/06/20 Ticket Sorter Relationship Specialty Start Date End Date Jared Evans MD [address] [place] [address] PCP - General 03/06/20 Henok Hernandez PA-C [address] [place] [id number] Physician Credit Products Officer Physician Credit Products Officer 04/19/24 Ticket Sorter Relationship Specialty Start Date End Date Jared Evans MD [address] [place] [address] PCP - General 03/06/20 Henok Hernandez PA-C [address] [place] [address] Physician Credit Products Officer Physician Credit Products Officer 04/19/24 Ticket Sorter Relationship Specialty Start Date End Date Jared Evans MD [address] [place] [address] PCP - General 03/06/20 Henok Hernandez PA-C [address] [place] [place] [address] Physician Credit Products Officer Physician Credit Products Officer 04/19/24 Ticket Sorter Relationship Specialty Start Date End Date Jared Evans MD [address] [place] [address] PCP - General 03/06/20 Henok Hernandez PA-C [address] [place] [address] Physician Credit Products Officer Physician Credit Products Officer 04/19/24 Ticket Sorter Relationship Specialty Start Date End Date Jared Evans MD [address] [place] [address] PCP - General 03/06/20 Henok Hernandez PA-C [address] [place] [address] Physician Credit Products Officer Physician Credit Products Officer 04/19/24 Ticket Sorter Relationship Specialty Start Date End Date Jared Evans MD [address] [place] [address] PCP - General 03/06/20 Henok Lantigua PA-C [address] [place] [address] Physician Credit Products Officer Physician Credit Products Officer 04/19/24 Ticket Sorter Relationship Specialty Start Date End Date Jared Evans MD [address] [place] [address] PCP - General 03/06/20 Henok Lantigua PA-C [address] [place] [address] Physician Credit Products Officer Physician Credit Products Officer 04/19/24 Ticket Sorter Relationship Specialty Start Date End Date Jared Evans MD [address] [place] [address] PCP - General Family Medicine 05/18/22 Ticket Sorter Relationship Specialty Start Date End Date Jared Evans MD [address] [place] [address] PCP - General Family Medicine 05/18/22 Ticket Sorter Relationship Specialty Start Date End Date Jared Evans MD [facility] [place] [address] PCP - General 03/06/20 Henok Lantigua PA-C [address] [place] [address] Physician Credit Products Officer Physician Credit Products Officer 04/19/24 Ticket Sorter Relationship Specialty Start Date End Date Jared Evans MD [address] [place] [address] PCP - General Family Medicine 05/18/22 Ticket Sorter Relationship Specialty Start Date End Date Jared Evans MD [address] [place] [address] PCP - General Family Medicine 05/18/22 Ticket Sorter Relationship Specialty Start Date End Date Jared Evans MD [address] [place] [address] PCP - General Family Medicine 05/18/22 Ticket Sorter Relationship Specialty Start Date End Date Jared Evans MD [address] [place] [address] PCP - General Family Medicine 05/18/22 Ticket Sorter Relationship Specialty Start Date End Date Jraed Evans MD [address] [place] [address] PCP - General Family Medicine 05/18/22 Ticket Sorter Relationship Specialty Start Date End Date Jared Evans MD [address] [place] [address] PCP - General 03/06/20 Henok Lantigua PA-C [address] [place] [address] Physician Credit Products Officer Physician Credit Products Officer 04/19/24 Ticket Sorter Relationship Specialty Start Date End Date Jared Evans MD [address] [place] [address] PCP - General Family Medicine 05/18/22 Ticket Sorter Relationship Specialty Start Date End Date Jared Evans MD [address] [place] [address] PCP - General Family Medicine 05/18/22 Ticket Sorter Relationship Specialty Start Date End Date Jared Evans MD [address] [place] [address] PCP - General Family Medicine 05/18/22 Ticket Sorter Relationship Specialty Start Date End Date Jared Evans MD [address] [place], [place] [address] PCP - General 03/06/20 Henok Lantigua PA-C [address] [place] [address] Physician Credit Products Officer Physician Credit Products Officer 04/19/24 Ticket Sorter Relationship Specialty Start Date End Date Jared Evans MD [address] [place] [address] PCP - General 03/06/20 Henok Lantigua PA-C [address] [place] [address] Physician Credit Products Officer Physician Credit Products Officer 04/19/24 Ticket Sorter Relationship Specialty Start Date End Date Jared Evans MD [address] [place] [address] PCP - General 03/06/20 Henok Lantigua PA-C [address] [place] [address] Physician Credit Products Officer Physician Credit Products Officer 04/19/[address] [address] [facility] 08/22/24 Ticket Sorter Relationship Specialty Start Date End Date Jared Evans MD [address] [place] [address] PCP - General Family Medicine 05/18/22 Ticket Sorter Relationship Specialty Start Date End Date Jared Evans MD [address] [place] [address] PCP - General Family Medicine 05/18/22 Team [...] October 08, 2024 End: October 08, 2024 Ticket Sorter Relationship Specialty Start Date End Date Jared Evans MD [address] [place] [address] PCP - General 03/06/20 Henok Lantigua PA-C [address] [address] Physician Credit Products Officer Physician Credit Products Officer 04/19/24 [facility] [address] [place] [address] [facility] 08/22/24 Ticket Sorter Relationship Specialty Start Date End Date Jared Evans MD [address] [facility] [place] [address] PCP - General 03/06/20 Henok Lantigua PA-C [address] [address] Physician Credit Products Officer Physician Credit Products Officer 04/19/24 [facility] [address] [place] [address] [facility] 08/22/24 Ticket Sorter Relationship Specialty Start Date End Date Jared Evans MD [address] [place] [address] PCP - General 03/06/20 Henok Lantigua PA-C [address] [address] Physician Credit Products Officer Physician Credit Products Officer 04/19/24 [facility] [address] [place] [address] [facility] 08/22/24 Ticket Sorter Relationship Specialty Start Date End Date Jared Evans MD [address] [facility] [place] [address] PCP - General 03/06/20 Henok Lantigua PA-C [address] [place] [address] Physician Credit Products Officer Physician Credit Products Officer 04/19/24 [facility] [address] [place] [address] [facility] 08/22/24 Ticket Sorter Relationship Specialty Start Date End Date Jared Evans MD [address] [place] [address] PCP - General 03/06/20 Henok Lantigua PA-C [address] [place] [address] Physician Credit Products Officer Physician Credit Products Officer 04/19/24 [facility] [address] [place] [address] [facility] 08/22/24 Ticket Sorter Relationship Specialty Start Date End Date Megan Beebe [address] [place] [phone] PCP - General Internal Medicine 12/13/24 Henok Lantigua PA-C [address] [place] [address] Physician Credit Products Officer Physician Credit Products Officer 04/19/24 [facility] [address] [place] [address] [facility] 08/22/24 Ticket Sorter Relationship Specialty Start Date End Date Megan Beebe [address] [place] [phone] PCP - General Internal Medicine 12/13/24 Henok Lantigua PA-C [address] [place] [address] Physician Credit Products Officer Physician Credit Products Officer 04/19/24 Kristyn Blankenship MD [address] [facility] [address] [place] [address] Consulting Physician Vascular Surgery 12/24/24 [facility] [address] [place] [address] [facility] 08/22/24 Ticket Sorter Relationship Specialty Start Date End Date Jared Evans MD [address] [place] [address] PCP - General Family Medicine 05/18/22 Ticket Sorter Relationship Specialty Start Date End Date Jared Evans MD [address] [place] [address] PCP - General Family Medicine 05/18/22 Ticket Sorter Relationship Specialty Start Date End Date Megan Beebe [address] [place] [phone] PCP - General Internal Medicine 12/13/24 Henok Lantigua PA-C [address] [place] [address] Physician Credit Products Officer Physician Credit Products Officer 04/19/24 Kristyn Blankenship MD [address] [place] [address] Consulting Physician Vascular Surgery 12/24/24 [facility] [address] [place], [place] [address] [facility] 08/22/24 Ticket Sorter Relationship Specialty Start Date End Date Megan Beebe [address] [facility] [address] [place] [phone] PCP - General Internal Medicine 12/13/24 Henok Lantigua PA-C [address] [place] [address] Physician Credit Products Officer Physician Credit Products Officer 04/19/24 Kristyn Blankenship MD [address] [place] [address] Consulting Physician Vascular Surgery 12/24/24 Andre Patel MD [address] [place] [address] Consulting Physician Hematology and Oncology 03/15/25 [facility] [address] [place] [address] [facility] 08/22/24 Scheduled Active and Recently Administ ered Medications (unrecognized section and content) Medication Order 04/11/2024 04/12/2024 04/13/2024 Fluticasone-Umeclidin- Vilant 100-62.5-25 MCG/ACT aerosol powder 1 puff 1 puff, Inhalation, Daily, First dose (after last modification) on Tue04/11/24 at 0600, Drug Name: [place] Ellipta 100-62.5-25mcg/act, Form: aerosol powder, Length of [...] Sravanthi Nichole RN) 0907 (Given - Provider: Airn Thomas) albuterol 108 (90 Base) MCG/ACT inhaler 1 puff 1 puff, Inhalation, Every 6 hours PRN, wheezing, Starting on Tue04/04/24 at 0513 naloxone (Narcan) injection 0.4 mg 0.4 mg, IntraVENous, Every 5 min PRN, opioid reversal, respiratory depression, Starting on Tue04/04/24 at 2027, +++ For RR <10, pinpoint pupils, over sedation for opioid reversal - MUST notify assistant operations manager provider immediately after first dose, may give [...] pain (4-6), Starting on Tue04/05/24 at 1342 Or oxyCODONE (Roxicodone) immediate release [...] 0936 (Given - Provider: La Avila RN) atorvastatin (Lipitor) tablet 80 mg 80 [...] 3 times daily, First dose on Maida 24 at 1400 1524 (Given - Provider: Aurea Castellon RN)2029 (Given - Provider: Luis Murry RN) 0907 (Given - Provider: Cecilia Lopes RN)1447 (Given - Provider: Cecilia Lopes RN)2106 (Given - Provider: Luis Murry RN) 0936 (Given - Provider: La Avila, RADHA) enoxaparin (Lovenox) syringe 70 mg 70 mg, SubCUTAneous, Every 12 hours, First dose on Maida 24 at 1500 1738 (Given - Provider: Cecilia [...] mg, Oral, Daily, First dose on Maida 24 at 1615 1738 (Given - Provider: Cecilia Lopes RN) 0907 (Given - Provider: Cecilia Lopes RN) 0936 (Given - Provider: La Avila, RADHA) metoprolol tartrate (Lopressor) tablet 25 mg 25 mg, Oral, 2 times daily with meals, First dose on Maida 07/05/24 at 1700 1738 (Given - Provider: Cecilia Lopes, RADHA) 0907 (Given - Provider: Cecilia Lopes, RADHA)1626 (Given - Provider: Cecilia Lopes RN) 0936 (Given - Provider: La Avila, RADHA) mometasone-formoterol (Dulera 200) 200-5 MCG/ACT inhaler 2 puff 2 puff, Inhalation, 2 times daily, First dose on Maida 07/05/24 at 1999, Rinse mouth with water after use to [...] RADHA) 0000 (Given - Provider: Luis Murry, RADHA)0406 (Given - Provider: Luis Murry RN)0908 (Given [...] RADHA) 0914 (Given - Provider: Cecilia Lopes, RADHA)2105 (Given - Provider: Luis Murry, RADHA) 0936 (Given - Provider: La Avila, RN) tiotropium (Spiriva Respimat) 2.5 MCG/ACT inhaler 2 puff 2 puff, Inhalation, Daily, First dose on Maida 07/05/24 at 1615 1742 (Given - Provider: Cecilia Lopes RN) 0909 (Given - Provider: Cecilia Lopes, RADHA) 0936 (Given - Provider: La Avila, RN) Continuous Medication Order 07/05/2024 07/06/2024 07/07/2024 [...] blood pressure, SBP >150, Starting on Maida 12/19/24 at 0527 1226 (Given - Provider: Esther Raya, RADHA) HYDROmorphone (Dilaudid) injection 0.25 mg(Linked Group 2) 0.25 mg, IntraVENous, Every 4 hours PRN, moderate pain (4-6), Starting on Maida 24 at 0540, If [...] RN) 1103 (Given - Provider: Cecilia Lopes, RADHA) polyethylene glycol (PEG) 3350 (Miralax) packet 17 g 17 g, Oral, Daily PRN, constipation, Starting on Maida 07/05/24 at 1324, 1st line for treatment of constipation - give scheduled if no bowel movement in past 24 hours. prochlorperazine (Compazine) injection 5 mg 5 mg, IntraVENous, Every 6 hours PRN, nausea, vomiting, Starting on Maida 24 at 1444 1700 (Given - Provider: Cecilia [...] RN) 0943 (Given - Provider: Cici Perez RN)2140 (Given - Provider: Jessica Bailey RN) 1023 [...] BE BASED ON THE PRIMARY CLINICAL RECORDS. [employer] [facility]. provides no warranty or guarantee of the accuracy or completeness of information in this document.
[2025-03-28 09:03] LABS: Hematocrit 31.6 % (37-47); Hemoglobin 10.3 g/dL (12.0-15.0); Mean Corp Hgb Conc 32.6 g/dL (32-36); Mean Corpuscular Volume 91.1 fL (81-99); Mean Platelet Vol. 10.0 fl (6.2-12.0); Platelet Count 265 K/mm3 (150-450); RBC Distribution Width CV 13.7 % (11.6-14.6); RBC Distribution Width SD 45.8 fl (35.1-43.9); Red Blood Count 3.47 M/mm3 (4.2-5.4); White Blood Count 5.3 K/mm3 (4.4-11.0)
[2025-03-28 09:13] LABS: Prothrombin Time (Protime)PT. 24.5 SECONDS (11.7-14.9)
[2025-03-28 09:20] LABS: Anion Gap 9 (5-15); BUN 17 mg/dL (4-19); BUN/Creat Ratio 17.4 RATIO (10-20); Calcium,Total 9.0 mg/dL (7.6-11.0); Carbon Dioxide 21.1 mmol/L (21.0-32.0); Chloride 108 mmol/L (98-108); Glucose 88 mg/dL (70-99); Potassium 5.2 mmol/L (3.3-5.1)
== END ==
LOC: OLS.SANC 05:00
PROVIDERS: Visit Provider Internal Medicine
DX: I48.91 Unspecified atrial fibrillation (principal); J44.9 Chronic obstructive pulmonary disease, unspecified; I10 Essential (primary) hypertension; Z79.01 Long term (current) use of anticoagulants
CPT/HCPCS: 36415; 80048; 85027; 85610

== ENCOUNTER → 2025-04-02 04:00 | Outpatient (REF) | payer MEDICARE, SELFPAY ==
--- OUTSIDE RECORDS SUMMARY | 2025-04-02 03:53 | XMS RPT_ITS | CCD ---
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 Name Role Phone Maryuri King Primary Care Provider [phone] Jared Evans Primary Care Provider [phone] Pcp, No Primary Care Provider UnavailJared Mckinnon MD Primary Care Provider BERNIE BIRD Admitting Unavailable IWONA CHU Attending Unavailable MING OLSON Consulting Unavailable SIM ELIZABETH Attending Unavailable PRIMO DODD Referring Unavailable Jared Evans MD Primary Care Provider Jared Evans MD Primary Care Provider Henok Hernandez PA-C Unavailable Henok Lantigua PA-C Unavailable [phone] Jared Evans MD Primary Care Provider SYSTEM, PROVIDER NOT IN Referring Unavaila Megan Rice Attending Provider Unavailab Megan Porras Referring Provider Unavailab Megan Porras Attending Provider Unavailab Megan Porras Referring Provider Unavailab TORSTEN Hernandez Consulting Unavailable JARED EVANS Primary Care Unavailable FELICIA COREAS Admitting Unavailable DON EDWARDS Attending Unavailable Megan Montoya Primary Care Provider [phone] Krzysztof BROWNE, Kristyn Unavailable [phone] RED HENDERSON Referring Unavail able JARED [...] Unavailable MADHU, DEVIKA A Attending Unavailable EVANS, JARED N Primary Care Unavailable AZAR BURK Consulting Unavailable MAMMO, SAVANA A Admitting Unavailable MAMMO, SAVANA A Attending Unavailable EVANS, JARED N Primary Care Unavailable MAMMO, SAVANA A Attending Unavailable SELF Referring Unavailable EVANS, JARED N Primary Care Unavailable EVANS, JARED N Primary Care Unavailable SELF Referring Unavailable EVANS, JARED N Primary Care Unavailable SELF Referring Unavailable EVANS, [place]ONT N Primary Care Unavailable SELF Referring Unavailable EVANS, [place]ARCH[place]ONT N Primary Care Unavailable MAMMO, SAVANA A Attending Unavailable MAMMO, SAVANA A Referring Unavailable EVANS, JARED N Primary Care Unavailable SELF Referring Unavailable EVANS, JARED N Primary Care Unavailable Darlyn FELIZ, Henok Unavailable Amanda Berry MD, Greg Unavailable DEVIN, RED Admitting Unavailable DEVIN, RED Attending Unavailable EVANS, JARED Primary Care Unavailable EVANS, JARED Primary Care Unavailable KRZYSZTOF, KRISTYN Attending Unavailable EVANS, JARED Primary Care Unavailable KRZYSZTOF, KRISTYN Attending Unavailable KRZYSZTOF, KRISTYN Admitting Unavailable EVANS, JARED Primary Care Unavailable EVANS, JARED Primary Care Unavailable EVANS, JARED Primary Care Unavailable BARDEVIKA SMITH Attending Unavailable TRISTA, MARTHA Admitting Unavailable EVANS, JARED Primary Care Unavailable EVANS, JARED Primary Care Unavailable DARLYN HENOK Attending Unavailable NAKIA, ANTHONY K Referring Unavailable EVANS, JARED Primary Care Unavailable KATSAROS, PETER Primary Care Unavailable ANDRE PATEL Attending Unavailable KATSAROS, PETER Primary Care Unavailable KRZYSZTOF, KRISTYN Attending Unavailable EVANS, JARED Primary Care Unavailable MARIANA KING Referring Unavailable EVANS, AJRED Primary Care Unavailable MARIANA KING Referring Unavailable KATSAROS, PETER Primary Care Unavailable KRZYSZTOF, KRISTYN Referring Unavailable KRZYSZTOF, KRISTYN Attending Unavailable EVANS, JARED Primary Care Unavailable EVANS, JARED Referring Unavailable EVANS, JARED Attending Unavailable GODIOS, HARMONY Attending Unavailable EVANS, JARED Primary Care Unavailable EVANS, JARED Primary Care Unavailable EVANS, JARED Primary Care Unavailable EVANS, JARED Primary Care Unavailable KRZYSZTOF, KRISTYN Attending Unavailable EVANS, JARED Primary Care Unavailable EVANS, JARED Referring Unavailable ISADA, HERMILA Attending Unavailable EVANS, JARED Primary Care Unavailable DARLYN, HENOK Attending Unavailable MCCORCLE, JORDIN Attending Unavailable AMANDA, ANDRE Consulting Unavailable NIZIONCKI, PRATIBHA Admitting Unavailable EVANS, JARED Primary Care Unavailable Katsaros OLS, Peter Referring Unavailable Katsaros OLS, Megan Attending Unavailable Katsaros OLS, Peter Attending Unavailable Katsaros OLS, Megan Attending Unavailable Katsaros OLS, Peter Referring Unavailable Katsaros OLS, Megan Attending Unavailable Katsaros OLS, Megan Attending Unavailable Katsaros OLS, Megan Referring Unavailable Katsaros OLS, Megan Attending Unavailable Katsaros OLS, Peter Referring Unavailable Katsaros OLS, Peter Attending Unavailable Katsaros OLS, Megan Attending Unavailable [...] Attending Unavailable Katsaros OLS, Peter Referring Unavailable Allergies Allergy Classification Reported Allergen(s) Allergy Type Date of Onset Reaction(s) Facility (20 sources) Amoxicillin Drug Allergy 0 [facility] [place] ([place] sources) fluticasone / salmeterol Drug Allergy 0 Intolerance [facility] [place] (20 sources) Acetaminophen / oxyCODONE; Translations: [OXYCODONE-ACETAM INOPHEN] Drug Allergy 2 Itching [facility] Other [place] [facility] (9 sources) Ampicillin; Translations: [AMPICILLIN] Drug Allergy 4 Unknown [facility] (13 sources) Amoxicillin-Pot Clavulanate Drug Allergy 5 [facility] (1 source) FLUTICASONE PROPION-SALMETERO L; Translations: [FLUTICASONE PROPION-SALMETERO L] Propensity to adverse reactions to drug (disorder) 0 [facility] Repository Medications Current Medications Medication Drug Class(es) [...] Comment on above: Take 1 tablet by [facility] every 8 hours as needed for pain for up to 3 days. [id number] 200 actuat albuterol 0.09 mg/actuat metered dose [...] 06-28-2022 take 2 tablets by mo ut twice daily, then take 1 tablet by [...] (5 sources) Diagnostic Dye Start: 5 End: fluorescein-benoxina te 0.3-0.4 % 1 Drop [...] on above: Take 2 tablets by mo [facility] every 12 hours for 3 days, THEN [...] Comment on above: Take 1 tablet by [facility] every 12 hours for 7 [...] for dry skin. Active lactobacillus rhamnosus gg [id number] unt oral capsule (2 sources) Start: 06-29-20 End: 07-29-19 23 take 1 capsule by mouth once daily lactobacillus rhamnosus (CULTURELLE) 10 billion cell capsule Take 1 capsule by mouth once daily. 30 capsule 0 06/29/2022 07/29/2022 Active Comment on above: Take 1 capsule by [facility] once daily. lidocaine 0.04 mg/mg medicated [...] above: Take 1 tablet by donna every 12 hours. 14 actuat mometasone furoate [...] Drop ( AK-DILATE, KEL-SYNEPHRINE) polyethylene glycol 3350 41742 mg powder for oral solution (11 sources) [...] lower extremity (HCC) Take as directed by [facility] (90 tablets = 90 [...] lower extremity (HCC) Take as directed by [facility] (45 tablets= 30 day supply) 45 tablet 1 04/27/2024 Active Start: 04-09-2024 7.5 mg, Oral, Once Warfarin, On Maida 04/12/24 at 1700, For 1 dose Start: 04-07-2024 warfarin (Coum jay jay) 5 MG tablet Take 1 tablet (5mg) on 04/13 in the evening Take 1.5 tablets (7.5mg) on 04/14 Take 1 tablet (5mg) on 04/15 Follow up with [facility] pharmacy for further dosing 30 tablet [...] Start: 06-28-2022 take 2 tablets by mo [facility] every six hours acetaminophen (TYLENOL) 325 mg tablet Take 2 tablets by mouth every 6 hours. 07/17/2024 Active acetaminophen (T YLENOL) 325 mg cap Take by mouth. 0 Active Comment on above: Take by mouth. Take 2 tablets by mo [facility] every 6 hours as needed for pain. [...] sodium chloride 0.9 % 100 mL IVPB (Add-[place]) (2 sources) Start: End: take 3000 mg intravenously every six hours 3,000 mg, IntraVENous, at 200 mL/hr, Administer over 30 Minutes, Every 6 hours, First dose on Tue08/03/24 at 1200, For 18 doses, [place] bag, Suspected Indication (Select all that apply): [...] Anesthetic Start: 03-07-2020 End: 03-07-2020 lidocaine-EPINEPHrine 1 percent-1:[id number] injection 8 mL ergocalciferol 1.25 mg oral capsule (3 sources) Provitamin D2 Compound End: 07-05-2024 take 1 capsule by mouth every week ergocalciferol (Vitamin D2) 1.25 MG (21934 UT) capsule Take 1.25 mg by mouth [...] Start: 05-19-2023 take 1 puff(s) by mo [facility] once daily Trelegy Ellipta 100-62.5-25 MCG/ACT aerosol [...] Comment on above: Take 1 tablet by [facility] twice daily before meals (0600/1600). prochlorperazine 5 [...] on Tue04/03/24 at 1820 sodium zirconium cyclosilicate 29677 mg powder for oral suspension (2 sources) [...] the circulatory system] 12-05-2024 Episodic Other aftercare (4 sources) [facility] (current) use of anticoagulants; Translations: [[facility] (current) use of anticoagulants] Onset: 2 Episodic [...] sources) Long-term current use of anticoagulant; Translations: [long term care pharmacist (current) use of anticoagulants] Onset: 0 03-07-2020 Episodic Other aftercare (2 sources) Encounter for surgical aftercare following surgery on the circulatory system; Translations: [Encounter for surgical aftercare following surgery on the circulatory system] Onset: 5 Episodic Other aftercare (1 source) 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; Translations: [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] Onset: 5 Episodic Other [...] right foot, limited to breakdown of skin ([facility]) 12-05-2024 Unclassified (4 sources) PAD (peripheral artery disease) ([facility]) 12-05-2024 Viral infection (20 sources) Disease caused by 2019-nCoV; Translations: [COVID-19] Onset: 2 06-16-2022 Episodic Results Test Name Value Interpretation Reference Range Facility Basic Metabolic Profile (BMP )on 03-28-2025 BUN/CRE 17.4 RATIO Normal 10-20 [facility] Comment on above: Order Comment: 104-1 Performed By: #### L 300.3900 #### [facility] [address] [place], [address] Calcium [Mass/Vol] 9.0 mg/dL Normal 7.6-11.0 [facility] Comment on above: Order Comment: 104-1 Performed By: #### L 300.3900 #### [facility] [address] [place], [address] Chloride [Moles/Vol] 108 mmol/L Normal 98-108 [facility] Comment on above: Order Comment: 104-1 Performed By: #### L 300.3900 #### [facility] [address] [place], [address] CO2 [Moles/Vol] 21.1 mmol/L Normal 21.0-32.0 [facility] Comment on above: Order Comment: 104-1 Performed By: #### L 300.3900 #### [facility] [address] [place], [address] Creatinine [Mass/Vol] 0.99 mg/dL Normal 0.70-1.20 [facility] Comment on above: Order Comment: 104-1 Performed By: #### L 300.3900 #### [facility] [address] [place], [address] GAP 9 Normal 5-15 [facility] Comment on above: Order Comment: 104-1 Performed By: #### L 300.3900 #### [facility] [address] [place], [address] GFR/1.73 sq M.predicted among non-blacks MDRD (S/P/Bld) [Vol rate/Area] 56 mL/min/{1.73_m2} Low >60 [facility] Comment on above: Order Comment: 104- Result Comment: mL/m in/1.73m2 CKD-EPI Creatinine Equation (2020) Performed By: #### L 300.3900 #### [facility] [address] [place], [address] Glucose [Mass/Vol] 88 mg/dL Normal 70-99 [facility] Comment on above: Order Comment: 104-1 Performed By: #### L 300.3900 #### [facility] [address] [place], [address] Potassium [Moles/Vol] 5.2 mmol/L High 3.3-5.1 [facility] Comment on above: Order Comment: 104-1 Performed By: #### L 300.3900 #### [facility] [address] [place], [address] Sodium [Moles/Vol] 138 mmol/L Normal 133-145 [facility] Comment on above: Order Comment: 104-1 Performed By: #### L 300.3900 #### [facility] [address] [place], [address] Urea nitrogen [Mass/Vol] 17 mg/dL Normal 4-19 [facility] Comment on above: Order Comment: 104-1 Performed By: #### L 300.3900 #### [facility] [address] [place], [address] CBC-Complete Blood Cnt No Di ffon 03-28-2025 Erythrocyte distribution width (RBC) [Ratio] 13.7 % Normal 11.6-14.6 [facility] Comment on above: Order Comment: 104.1 Performed By: #### L 9200.0000 #### [facility] [address] [place], [address] Hematocrit (Bld) [Volume fraction] 31.6 % Low 37-47 [facility] Comment on above: Order Comment: 104.1 Performed By: #### L 9200.0000 #### [facility] [address] [place], [address] Hemoglobin (Bld) [Mass/Vol] 10.3 g/dL Low 12.0-15.0 [facility] Comment on above: Order Comment: 104.1 Performed By: #### L 9200.0000 #### [facility] [address] [place], [address] MCH (RBC) [Entitic mass] 29.7 pg Normal 27.0-32.0 [facility] Comment on above: Order Comment: 104.1 Performed By: #### L 9200.0000 #### [facility] [address] [place], [address] MCHC (RBC) [Mass/Vol] 32.6 g/dL Normal 32-36 [facility] Comment on above: Order Comment: 104.1 Performed By: #### L 9200.0000 #### [facility] [address] [place], [address] MCV (RBC) [Entitic vol] 91.1 fL Normal 81-99 [facility] Comment on above: Order Comment: 104.1 Performed By: #### L 9200.0000 #### [facility] [address] [place], [address] Platelet mean volume (Bld) [Entitic vol] 10.0 fL Normal 6.2-12.0 [facility] Comment on above: Order Comment: 104.1 Performed By: #### L 9200.0000 #### [facility] [address] [place], [address] Platelets (Bld) [#/Vol] 265 10*3/uL Normal 150-450 [facility] Comment on above: Order Comment: 104.1 Performed By: #### L 9200.0000 #### [facility] [address] [place], [address] RBC (Bld) [#/Vol] 3.47 10*6/uL Low 4.2-5.4 [facility] Comment on above: Order Comment: 104.1 Performed By: #### L 9200.0000 #### [facility] [address] [place], [address] RDW SD 45.8 fl High 35.1-43.9 [facility] Comment on above: Order Comment: 104.1 Performed By: #### L 9200.0000 #### [facility] [address] [place], [address] WBC (Bld) [#/Vol] 5.3 10*3/uL Normal 4.4-11.0 [facility] Comment on above: Order Comment: 104.1 Performed By: #### L 9200.0000 #### [facility] [address] [place], [address] Prothrombin Time w/INRon INR Coag (PPP) [Relative time] 2.2 {INR} Normal [facility] Comment on above: Order Comment: 104.1 Performed By: #### L 9200.0000 #### [facility] [address] [place], [address] PT Coag (PPP) [Time] 24.5 s High 11.7-14.9 [facility] Comment on above: Order Comment: 104.1 Performed By: #### L 9200.0000 #### [facility] [address] [place], [address] Progress Noteon 03-15-2025 Progress Note Normal [facility] Protime w/INR Fingerstickon 03-04-2025 INR Coag (PPP) [Relative time] 2.3 {INR} Normal [facility] Comment on above: Result Comment: Crit ical Value > 4.0 Performed By: #### L 9200.0000 #### [facility] [address] [place], [address] Protime Coags[place] 24.7 SEC High 11.7-14.9 [facility] Comment on above: Performed By: #### L 9200.0000 #### [facility] [address] [place], [address] 36on 02-27-2025 36 Letter mailed to patient [facility] 36on 02-26-2025 36 [facility] Protime w/INR Fingerstickon 02-25-2025 INR Coag (PPP) [Relative time] 2.1 {INR} Normal [facility] Comment on above: Result Comment: Crit ical Value > 4.0 Performed By: #### L 300.3900 #### [facility] [address] [place], [address] Protime [place]agsen 23.3 SEC High 11.7-14.9 [facility] Comment on above: Performed By: #### L 300.3900 #### [facility] [address] [place], [address] Basic Metabolic Profile (BMP )on 02-18-2025 BUN/CRE 22.7 RATIO High 10-20 [facility] Comment on above: Performed By: #### L 300.3900 #### [facility] [address] [place], [address] Calcium [Mass/Vol] 9.2 mg/dL Normal 7.6-11.0 [facility] Comment on above: Performed By: #### L 300.3900 #### [facility] [address] [place], [address] Chloride [Moles/Vol] 108 mmol/L Normal 98-108 [facility] Comment on above: Performed By: #### L 300.3900 #### [facility] [address] [place], [address] CO2 [Moles/Vol] 21.6 mmol/L Normal 21.0-32.0 [facility] Comment on above: Performed By: #### L 300.3900 #### [facility] [address] [place], [address] Creatinine [Mass/Vol] 1.03 mg/dL Normal 0.70-1.20 [facility] Comment on above: Performed By: #### L 300.3900 #### [facility] [address] [place], [address] GAP 9 Normal 5-15 [facility] Comment on above: Performed By: #### L 300.3900 #### [facility] [address] [place], [address] GFR/1.73 sq M.predicted among non-blacks MDRD (S/P/Bld) [Vol rate/Area] 53 mL/min/{1.73_m2} Low >60 [facility] Comment on above: Result Comment: mL/m in/1.73m2 CKD-EPI Creatinine Equation (2020) Performed By: #### L 300.3900 #### [facility] [address] [place], [address] Glucose [Mass/Vol] 91 mg/dL Normal 70-99 [facility] Comment on above: Performed By: #### L 300.3900 #### [facility] [address] [place], [address] Potassium [Moles/Vol] 5.2 mmol/L High 3.3-5.1 [facility] Comment on above: Performed By: #### L 300.3900 #### [facility] [address] [place], [address] Sodium [Moles/Vol] 138 mmol/L Normal 133-145 [facility] Comment on above: Performed By: #### L 300.3900 #### [facility] [address] [place], [address] Urea nitrogen [Mass/Vol] 23 mg/dL High 4-19 [facility] Comment on above: Performed By: #### L 300.3900 #### [facility] [address] [place], [address] CBC-Complete Blood Cnt No Di ffon 02-18-2025 Erythrocyte distribution width (RBC) [Ratio] 14.0 % Normal 11.6-14.6 [facility] Comment on above: Performed By: #### L 300.3900 #### [facility] [address] [place], [address] Hematocrit (Bld) [Volume fraction] 31.6 % Low 37-47 [facility] Comment on above: Performed By: #### L 300.3900 #### [facility] [address] [place], [address] Hemoglobin (Bld) [Mass/Vol] 10.2 g/dL Low 12.0-15.0 [facility] Comment on above: Performed By: #### L 300.3900 #### [facility] [address] [place], [address] MCH (RBC) [Entitic mass] 30.0 pg Normal 27.0-32.0 [facility] Comment on above: Performed By: #### L 300.3900 #### [facility] [address] [place], [address] MCHC (RBC) [Mass/Vol] 32.3 g/dL Normal 32-36 [facility] Comment on above: Performed By: #### L 300.3900 #### [facility] [place], [address] MCV (RBC) [Entitic vol] 92.9 fL Normal 81-99 [facility] Comment on above: Performed By: #### L 300.3900 #### [facility] [address] [place], [address] Platelet mean volume (Bld) [Entitic vol] 9.9 fL Normal 6.2-12.0 [facility] Comment on above: Performed By: #### L 300.3900 #### [facility] [address] [place], [address] Platelets (Bld) [#/Vol] 257 10*3/uL Normal 150-450 [facility] Comment on above: Performed By: #### L 300.3900 #### [facility] [address] [place], [address] RBC (Bld) [#/Vol] 3.40 10*6/uL Low 4.2-5.4 [facility] Comment on above: Performed By: #### L 300.3900 #### [facility] [address] [place], [address] RDW SD 47.2 fl High 35.1-43.9 [facility] Comment on above: Performed By: #### L 300.3900 #### [facility] [address] [place], [address] WBC (Bld) [#/Vol] 4.3 10*3/uL Low 4.4-11.0 [facility] Comment on above: Performed By: #### L 300.3900 #### [facility] [address] [place], [address] Prothrombin Time w/INRon INR Coag (PPP) [Relative time] 2.5 {INR} Normal [facility] Comment on above: Performed By: #### L 300.3900 #### [facility] [address] [place], [address] PT Coag (PPP) [Time] 27.6 s High 11.7-14.9 [facility] Comment on above: Performed By: #### L 300.3900 #### [facility] [address] [place], [address] Basic Metabolic Profile (BMP )on 02-15-2025 BUN/CRE 18.4 RATIO Normal 10-20 [facility] Comment on above: Order Comment: 104.1 Performed By: #### L 9200.0000 #### [facility] [address] [place], [address] Calcium [Mass/Vol] 9.4 mg/dL Normal 7.6-11.0 [facility] Comment on above: Order Comment: 104.1 Performed By: #### L 9200.0000 #### [facility] [address] [place], [address] Chloride [Moles/Vol] 107 mmol/L Normal 98-108 [facility] Comment on above: Order Comment: 104.1 Performed By: #### L 9200.0000 #### [facility] [address] [place], [address] CO2 [Moles/Vol] 16.1 mmol/L Low 21.0-32.0 [facility] Comment on above: Order Comment: 104.1 Performed By: #### L 9200.0000 #### [facility] [address] [place], [address] Creatinine [Mass/Vol] 1.12 mg/dL Normal 0.70-1.20 [facility] Comment on above: Order Comment: 104.1 Performed By: #### L 9200.0000 #### [facility] [address] [place], [address] GAP 11 Normal 5-15 [facility] Comment on above: Order Comment: 104.1 Performed By: #### L 9200.0000 #### [facility] [address] [place], [address] GFR/1.73 sq M.predicted among non-blacks MDRD (S/P/Bld) [Vol rate/Area] 48 mL/min/{1.73_m2} Low >60 [facility] Comment on above: Order Comment: 104.1 Result Comment: mL/m in/1.73m2 CKD-EPI Creatinine Equation (2020) Performed By: #### L 9200.0000 #### [facility] [address] [place], [address] Glucose [Mass/Vol] 90 mg/dL Normal 70-99 [facility] Comment on above: Order Comment: 104.1 Performed By: #### L 9200.0000 #### [facility] [address] [place], [address] Potassium [Moles/Vol] 6.1 mmol/L Invalid Interpretation Code 3.3-5.1 [facility] Comment on above: Order Comment: 104.1 Result Comment: Crit ical result called 02/15/2025-09:30 by Cirilo Bird to Shannen Christianson. Hemolysis present, Results??could be affected. ?? Critical Result(s) Called at: by:??Results read back by same. Performed By: #### L 9200.0000 #### [facility] [address] [place], [address] Sodium [Moles/Vol] 134 mmol/L Normal 133-145 [facility] Comment on above: Order Comment: 104.1 Performed By: #### L 9200.0000 #### [facility] [address] [place], [address] Urea nitrogen [Mass/Vol] 21 mg/dL High 4-19 [facility] Comment on above: Order Comment: 104.1 Performed By: #### L 9200.0000 #### [facility] [address] [place], [address] CBC-Complete Blood Cnt No Di ffon 02-15-2025 Erythrocyte distribution width (RBC) [Ratio] 13.8 % Normal 11.6-14.6 [facility] Comment on above: Order Comment: 104.1 Performed By: #### L 500.2500, L100.0500 #### [facility] [address] [place], [address] Hematocrit (Bld) [Volume fraction] 34.2 % Low 37-47 [facility] Comment on above: Order Comment: 104.1 Performed By: #### L 500.2500, L100.0500 #### [facility] [address] [place], [address] Hemoglobin (Bld) [Mass/Vol] 10.8 g/dL Low 12.0-15.0 [facility] Comment on above: Order Comment: 104.1 Performed By: #### L 500.2500, L100.0500 #### [facility] [address] [place], [address] MCH (RBC) [Entitic mass] 30.4 pg Normal 27.0-32.0 [facility] Comment on above: Order Comment: 104.1 Performed By: #### L 500.2500, L100.0500 #### [facility] [address] [place], [address] MCHC (RBC) [Mass/Vol] 31.6 g/dL Low 32-36 [facility] Comment on above: Order Comment: 104.1 Performed By: #### L 500.2500, L100.0500 #### [facility] [address] [place], [address] MCV (RBC) [Entitic vol] 96.3 fL Normal 81-99 [facility] Comment on above: Order Comment: 104.1 Performed By: #### L 500.2500, L100.0500 #### [facility] [address] [place], [address] Platelet mean volume (Bld) [Entitic vol] 10.4 fL Normal 6.2-12.0 [facility] Comment on above: Order Comment: 104.1 Performed By: #### L 500.2500, L100.0500 #### [facility] [address] [place], [address] Platelets (Bld) [#/Vol] 239 10*3/uL Normal 150-450 [facility] Comment on above: Order Comment: 104.1 Performed By: #### L 500.2500, L100.0500 #### [facility] [address] [place], [address] RBC (Bld) [#/Vol] 3.55 10*6/uL Low 4.2-5.4 [facility] Comment on above: Order Comment: 104.1 Performed By: #### L 500.2500, L100.0500 #### [facility] [address] [place], [address] RDW SD 49.1 fl High 35.1-43.9 [facility] Comment on above: Order Comment: 104.1 Performed By: #### L 500.2500, L100.0500 #### [facility] [address] [place], [address] WBC (Bld) [#/Vol] 4.3 10*3/uL Low 4.4-11.0 [facility] Comment on above: Order Comment: 104.1 Performed By: #### L 500.2500, L100.0500 #### [facility] [address] [place], [address] Prothrombin Time w/INRon INR Normal [facility] Comment on above: Order Comment: 104-1 Result Comment: FING ERSTICK Performed By: #### L 300.3900 #### [facility] [address] [place], [address] PROTIME Normal 11.7-14.9 [facility] Comment on above: Order Comment: 104-1 Result Comment: FING ERSTICK Performed By: #### L 300.3900 #### [facility] [address] [place], [address] Protime w/INR Fingerstickon 02-11-2025 INR Coag (PPP) [Relative time] 2.5 {INR} Normal [facility] Comment on above: Result Comment: Crit ical Value > 4.0 Performed By: #### L 9200.0000 #### [facility] [address] [place], [address] Protime Coagsen 26.4 SEC High 11.7-14.9 [facility] Comment on above: Performed By: #### L 9200.0000 #### [facility] [address] [place], [address] Protime w/INR Fingerstickon 02-07-2025 INR Coag (PPP) [Relative time] 2.2 {INR} Normal [facility] Comment on above: Result Comment: Crit ical Value > 4.0 Performed By: #### L 300.3900 #### [facility] [address] [place], [address] Protime Coagsen 23.6 SEC High 11.7-14.9 [facility] Comment on above: Performed By: #### L 300.3900 #### [facility] [address] [place], [address] Protime w/INR Fingerstickon 02-04-2025 INR Coag (PPP) [Relative time] 3.6 {INR} Normal [facility] Comment on above: Result Comment: Crit ical Value > 4.0 Performed By: #### L 9200.0000 #### [facility] [address] [place], [address] Protime Coagsen 36.4 SEC High 11.7-14.9 [facility] Comment on above: Performed By: #### L 9200.0000 #### [facility] [address] [place], [address] Prothrombin Time w/INRon INR Coag (PPP) [Relative time] 3.3 {INR} Normal [facility] Comment on above: Order Comment: 104-1 Performed By: #### L 300.3900 #### [facility] [address] [place], [address] PT Coag (PPP) [Time] 34.2 s High 11.7-14.9 [facility] Comment on above: Order Comment: 104-1 Performed By: #### L 300.3900 #### [facility] [address] [place], [address] Protime w/INR Fingerstickon 01-28-2025 INR Coag (PPP) [Relative time] 2.8 {INR} Normal [facility] Comment on above: Result Comment: Crit ical Value > 4.0 Performed By: #### L 9200.0000 #### [facility] [address] [place], [address] Protime Coagsen 29.1 SEC High 11.7-14.9 [facility] Comment on above: Performed By: #### L 9200.0000 #### [facility] [address] [place], [address] Protime w/INR Fingerstickon 01-25-2025 INR Coag (PPP) [Relative time] 3.4 {INR} Normal [facility] Comment on above: Result Comment: Crit ical Value > 4.0 Performed By: #### L 9200.0000 #### [facility] [address] [place], [address] Protime Coagsen 34.5 SEC High 11.7-14.9 [facility] Comment on above: Performed By: #### L 9200.0000 #### [facility] [address] [place], [address] Prothrombin Time w/INRon INR Coag (PPP) [Relative time] 2.8 {INR} Normal [facility] Comment on above: Order Comment: 104-1 Performed By: #### L 300.3900 #### [facility] [address] [place], [address] PT Coag (PPP) [Time] 30.5 s High 11.7-14.9 [facility] Comment on above: Order Comment: 104-1 Performed By: #### L 300.3900 #### [facility] [address] [place], [address] Prothrombin Time w/INRon INR Coag (PPP) [Relative time] 2.5 {INR} Normal [facility] Comment on above: Order Comment: 104-1 Performed By: #### L 300.3900 #### [facility] [address] [place], [address] PT Coag (PPP) [Time] 27.1 s High 11.7-14.9 [facility] Comment on above: Order Comment: 104-1 Performed By: #### L 300.3900 #### [facility] [address] [place], [address] Prothrombin Time w/INRon INR Coag (PPP) [Relative time] 2.4 {INR} Normal [facility] Comment on above: Order Comment: 104-1 Performed By: #### L 300.3900 #### [facility] [address] [place], [address] PT Coag (PPP) [Time] 26.9 s High 11.7-14.9 [facility] Comment on above: Order Comment: 104-1 Performed By: #### L 300.3900 #### [facility] [address] [place], [address] Protime w/INR Fingerstickon 01-17-2025 INR Coag (PPP) [Relative time] 1.9 {INR} Normal [facility] Comment on above: Result Comment: Crit ical Value > 4.0 Performed By: #### L 9200.0000 #### [facility] [address] [place], [address] Protime Coagsen 20.8 SEC High 11.7-14.9 [facility] Comment on above: Performed By: #### L 9200.0000 #### [facility] [address] [place], [address] Protime w/INR Fingerstickon 01-16-2025 INR Coag (PPP) [Relative time] 1.5 {INR} Normal [facility] Comment on above: Result Comment: Crit ical Value > 4.0 Performed By: #### L 9200.0000 #### [facility] [address] [place], [address] Protime Coagsen 17.2 SEC High 11.7-14.9 [facility] Comment on above: Performed By: #### L 9200.0000 #### [facility] [address] [place], [address] Prothrombin Time w/INRon INR Coag (PPP) [Relative time] 1.2 {INR} Normal [facility] Comment on above: Performed By: #### L 9200.0000 #### [facility] [address] [place], [address] PT Coag (PPP) [Time] 15.4 s High 11.7-14.9 [facility] Comment on above: Performed By: #### L 9200.0000 #### [facility] [address] [place], [address] 36on 01-08-2025 36 Normal [facility] Basic Metabolic Profile (BMP )on 01-07-2025 BUN/CRE 17.7 RATIO Normal 10-20 [facility] Comment on above: Order Comment: 104.1 Performed By: #### L 9200.0000 #### [facility] [address] [place], [address] Calcium [Mass/Vol] 9.1 mg/dL Normal 7.6-11.0 [facility] Comment on above: Order Comment: 104.1 Performed By: #### L 9200.0000 #### [facility] [address] [place], [address] Chloride [Moles/Vol] 109 mmol/L High 98-108 [facility] Comment on above: Order Comment: 104.1 Performed By: #### L 9200.0000 #### [facility] [address] [place], [address] CO2 [Moles/Vol] 19.7 mmol/L Low 21.0-32.0 [facility] Comment on above: Order Comment: 104.1 Performed By: #### L 9200.0000 #### [facility] [address] [place], [address] Creatinine [Mass/Vol] 1.15 mg/dL Normal 0.70-1.20 [facility] Comment on above: Order Comment: 104.1 Performed By: #### L 9200.0000 #### [facility] [address] [place], [address] GAP 10 Normal 5-15 [facility] Comment on above: Order Comment: 104.1 Performed By: #### L 9200.0000 #### [facility] [address] [place], [address] GFR/1.73 sq M.predicted among non-blacks MDRD (S/P/Bld) [Vol rate/Area] 47 mL/min/{1.73_m2} Low >60 [facility] Comment on above: Order Comment: 104.1 Result Comment: mL/m in/1.73m2 CKD-EPI Creatinine Equation (2020) Performed By: #### L 9200.0000 #### [facility] [address] [place], [address] Glucose [Mass/Vol] 87 mg/dL Normal 70-99 [facility] Comment on above: Order Comment: 104.1 Performed By: #### L 9200.0000 #### [facility] [address] [place], [address] Potassium [Moles/Vol] 5.0 mmol/L Normal 3.3-5.1 [facility] Comment on above: Order Comment: 104.1 Performed By: #### L 9200.0000 #### [facility] [address] [place], [address] Sodium [Moles/Vol] 138 mmol/L Normal 133-145 [facility] Comment on above: Order Comment: 104.1 Performed By: #### L 9200.0000 #### [facility] [address] [place], [address] Urea nitrogen [Mass/Vol] 20 mg/dL High 4-19 [facility] Comment on above: Order Comment: 104.1 Performed By: #### L 9200.0000 #### [facility] [address] [place], [address] CBC-Complete Blood Cnt No Di ffon 01-07-2025 Erythrocyte distribution width (RBC) [Ratio] 16.5 % High 11.6-14.6 [facility] Comment on above: Order Comment: 104.1 Performed By: #### L 9200.0000 #### [facility] [address] [place], [address] Hematocrit (Bld) [Volume fraction] 30.4 % Low 37-47 [facility] Comment on above: Order Comment: 104.1 Performed By: #### L 9200.0000 #### [facility] [address] [place], [address] Hemoglobin (Bld) [Mass/Vol] 9.8 g/dL Low 12.0-15.0 [facility] Comment on above: Order Comment: 104.1 Performed By: #### L 9200.0000 #### [facility] [address] [place], [address] MCH (RBC) [Entitic mass] 29.9 pg Normal 27.0-32.0 [facility] Comment on above: Order Comment: 104.1 Performed By: #### L 9200.0000 #### [facility] [address] [place], [address] MCHC (RBC) [Mass/Vol] 32.2 g/dL Normal 32-36 [facility] Comment on above: Order Comment: 104.1 Performed By: #### L 9200.0000 #### [facility] [address] [place], [address] MCV (RBC) [Entitic vol] 92.7 fL Normal 81-99 [facility] Comment on above: Order Comment: 104.1 Performed By: #### L 9200.0000 #### [facility] [address] [place], [address] Platelet mean volume (Bld) [Entitic vol] 10.0 fL Normal 6.2-12.0 [facility] Comment on above: Order Comment: 104.1 Performed By: #### L 9200.0000 #### [facility] [address] [place], [address] Platelets (Bld) [#/Vol] 254 10*3/uL Normal 150-450 [facility] Comment on above: Order Comment: 104.1 Performed By: #### L 9200.0000 #### [facility] [address] [place], [address] RBC (Bld) [#/Vol] 3.28 10*6/uL Low 4.2-5.4 [facility] Comment on above: Order Comment: 104.1 Performed By: #### L 9200.0000 #### [facility] [address] [place], [address] RDW SD 55.9 fl High 35.1-43.9 [facility] Comment on above: Order Comment: 104.1 Performed By: #### L 9200.0000 #### [facility] [address] [place], [address] WBC (Bld) [#/Vol] 4.5 10*3/uL Normal 4.4-11.0 [facility] Comment on above: Order Comment: 104.1 Performed By: #### L 9200.0000 #### [facility] [address] [place], [address] 36on 01-04-2025 36 Normal [facility] 36 Normal [facility] Progress Noteon 12-24-2024 Progress Note Normal [facility] No Panel Informationon 12-13 Left MICHELLE 0.71 [facility] Left arm BP 121 mmHg [facility] Left Dist Outflow EDV 6.5 cm/s [facility] Left Dist Outflow PSV 51.5 cm/s [facility] Left dorsalis pedis BP 67 mmHg [facility] Left Graft 1 Proximal Popliteal Stent [facility] Left Inflow Artery EDV 8.5 cm/s [facility] Left Inflow Artery PSV 46.5 cm/s [facility] Left Mid Outflow EDV 6.5 cm/s [facility] Left Mid Outflow PSV 58.1 cm/s [facility] Left Outflow Vessel EDV 9.8 cm/s S [facility] Left Outflow Vessel PSV 89.9 cm/s S [facility] Left posterior tibial 94 mmHg [facility] Left Prox Outflow EDV 6.5 cm/s [facility] Left Prox Outflow PSV 51.5 cm/s [facility] Right IMCHELLE 0.96 [facility] Right arm BP 133 mmHg [facility] Right YARITZA dist PSV 53.6 cm/s [facility] Right [employer] dist PSV 144.6 cm/s [facility] Right [employer] mid AP diameter 0.92 cm [facility] Right [employer] IN[employer] mid TR diameter 0.89 cm [facility] Right [employer]ISH IN[employer] prox PSV 133.7 cm/s [facility] Right Dist Outflow EDV 0 cm/s [facility] Right Dist Outflow PSV 45.3 cm/s [facility] Right dorsalis pedis BP 107 mmHg S [facility] Right EIA dist PSV 144.6 cm/s [facility] Right Graft 1 Distal SFA Stent [facility] Right Inflow Artery EDV 4.6 cm/s S [facility] Right Inflow Artery PSV 100.7 cm/s S [facility] Right Mid Outflow EDV 2.3 cm/s [facility] Right Mid Outflow PSV 66.2 cm/s [...] PSV 68.6 cm/s [facility] Right [place] COOPER dist PSV 48.1 cm/s [facility] Right [...] Progress Noteon 12-05-2024 Progress Note Normal [facility] 36on 11-23-2024 36 Normal [facility] 36 Normal [facility] 36 Normal [facility] [id number] 11-22-2024 [id number] Normal [facility] Anesthesia Noteon 11-22-2024 Anesthesia Note Normal [facility] No Panel Informationon 11-22 There is no interpretation needed for this exam. IMAGING Nursing Noteon 11-22-2024 Nursing Note Patient arrived on unit. Name and date verified. Attached to monitors. Vital signs stable. Normal [facility] Op Noteon 11-22-2024 Op Note Normal [facility] Progress Noteon 11-22-2024 Progress Note POA called to bedsid e and discharge instructions reviewed. Groin site remains intact and LE distal pulses unchanged via assessment with doppler. 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 Made aware of patient's orders to lay flat until 1325. Daughter in law stated that she will call care facility later to make arrangements for transportation back. Normal [facility] Anesthesia Noteon 11-21-2024 Anesthesia Note Normal [facility] Basic Metabolic Profile (BMP )on 11-15-2024 BUN/CRE 18.3 RATIO Normal 10-20 [facility] Comment on above: Order Comment: 104-1 Performed By: #### L 9200.0000 #### [facility] [address] [facility] [place], [place], [id number] Calcium [Mass/Vol] 9.0 mg/dL Normal 7.6-11.0 [facility] Comment on above: Order Comment: 104-1 Performed By: #### L 9200.0000 #### [facility] [address] [place], [address] Chloride [Moles/Vol] 108 mmol/L Normal 98-108 [facility] Comment on above: Order Comment: 104-1 Performed By: #### L 9200.0000 #### [facility] [address] [place], [address] CO2 [Moles/Vol] 22.1 mmol/L Normal 21.0-32.0 [facility] Comment on above: Order Comment: 104-1 Performed By: #### L 9200.0000 #### [facility] [address] [place], [address] Creatinine [Mass/Vol] 1.03 mg/dL Normal 0.70-1.20 [facility] Comment on above: Order Comment: 104-1 Performed By: #### L 9200.0000 #### [facility] [address] [place], [address] GAP 9 Normal 5-15 [facility] Comment on above: Order Comment: 104-1 Performed By: #### L 9200.0000 #### [facility] [address] [place], [address] GFR/1.73 sq M.predicted among non-blacks MDRD (S/P/Bld) [Vol rate/Area] 53 mL/min/{1.73_m2} Low >60 [facility] Comment on above: Order Comment: 104-1 Result Comment: mL/m in/1.73m2 CKD-EPI Creatinine Equation (2020) Performed By: #### L 9200.0000 #### [facility] [address] [place], [address] Glucose [Mass/Vol] 91 mg/dL Normal 70-99 [facility] Comment on above: Order Comment: 104-1 Performed By: #### L 9200.0000 #### [facility] [address] [place], [address] Potassium [Moles/Vol] 4.8 mmol/L Normal 3.3-5.1 [facility] Comment on above: Order Comment: 104-1 Performed By: #### L 9200.0000 #### [facility] [address] [place], [address] Sodium [Moles/Vol] 138 mmol/L Normal 133-145 [facility] Comment on above: Order Comment: 104-1 Performed By: #### L 9200.0000 #### [facility] [address] [place], [address] Urea nitrogen [Mass/Vol] 19 mg/dL Normal 4-19 [facility] Comment on above: Order Comment: 104-1 Performed By: #### L 9200.0000 #### [facility] [address] [place], [address] CBC W/Diff, Automatedon 05-0 -2024 Absolute Lymph 1.77 X10 3/uL Normal 0.83-4.51 [facility] Comment on above: Order Comment: 104-1 Performed By: #### L 9200.0000 #### [facility] [address] [place], [address] Absolute Neut 3.2 X10 3/uL Normal 2.0-7.7 [facility] Comment on above: Order Comment: 104-1 Performed By: #### L 9200.0000 #### [facility] [address] [place], [address] Basophils/100 WBC (Bld) 0.7 % Normal 0-1 [facility] Comment on above: Order Comment: 104-1 Performed By: #### L 9200.0000 #### [facility] [address] [place], [address] Eosinophils/100 WBC (Bld) 2.9 % Normal 0-5 [facility] Comment on above: Order Comment: 104-1 Performed By: #### L 9200.0000 #### [facility] [address] [place], [address] Erythrocyte distribution width (RBC) [Ratio] 18.8 % High 11.6-14.6 [facility] Comment on above: Order Comment: 104-1 Performed By: #### L 9200.0000 #### [facility] [address] [place], [address] Hematocrit (Bld) [Volume fraction] 30.9 % Low 37-47 [facility] Comment on above: Order Comment: 104-1 Performed By: #### L 9200.0000 #### [facility] [address] [place], [address] Hemoglobin (Bld) [Mass/Vol] 9.8 g/dL Low 12.0-15.0 [facility] Comment on above: Order Comment: 104-1 Performed By: #### L 9200.0000 #### [facility] [address] [place], [address] IG% 0.200 Normal 0.0-0.9 [facility] Comment on above: Order Comment: 104-1 Result Comment: IG% - Immature Granulocytes (promyelocytes, myelocytes and metamyelocytes) > 1% indicates that a LEFT SHIFT is Present. Performed By: #### L 9200.0000 #### [facility] [address] [place], [address] Lymphocytes/100 WBC (Bld) 30.3 % Normal 19-41 [facility] Comment on above: Order Comment: 104-1 Performed By: #### L 9200.0000 #### [facility] [address] [place], [address] MCH (RBC) [Entitic mass] 28.4 pg Normal 27.0-32.0 [facility] Comment on above: Order Comment: 104-1 Performed By: #### L 9200.0000 #### [facility] [address] [place], [address] MCHC (RBC) [Mass/Vol] 31.7 g/dL Low 32-36 [facility] Comment on above: Order Comment: 104-1 Performed By: #### L 9200.0000 #### [facility] [address] [place], [address] MCV (RBC) [Entitic vol] 89.6 fL Normal 81-99 [facility] [facility] Comment on above: Order Comment: 104-1 Performed By: #### L 9200.0000 #### [facility] [address] [place], [address] Monocytes/100 WBC (Bld) 11.3 % High 0-10 [facility] Comment on above: Order Comment: 104-1 Performed By: #### L 9200.0000 #### [facility] [address] [place], [address] Neutrophils/100 WBC (Bld) 54.6 % Normal 47-70 [facility] Comment on above: Order Comment: 104-1 Performed By: #### L 9200.0000 #### [facility] [address] [place], [address] Nucleated RBC (Bld) [#/Vol] 0 10*3/uL Normal 0-5 [facility] Comment on above: Order Comment: 104-1 Performed By: #### L 9200.0000 #### [facility] [address] [place], [address] Platelet mean volume (Bld) [Entitic vol] 10.2 fL Normal 6.2-12.0 [facility] Comment on above: Order Comment: 104-1 Performed By: #### L 9200.0000 #### [facility] [address] [place], [address] Platelets (Bld) [#/Vol] 303 10*3/uL Normal 150-450 [facility] Comment on above: Order Comment: 104-1 Performed By: #### L 9200.0000 #### [facility] [address] [place], [address] RBC (Bld) [#/Vol] 3.45 10*6/uL Low 4.2-5.4 [facility] Comment on above: Order Comment: 104-1 Performed By: #### L 9200.0000 #### [facility] [address] [place], [address] RDW SD 61.8 fl High 35.1-43.9 [facility] Comment on above: Order Comment: 104-1 Performed By: #### L 9200.0000 #### [facility] [address] [place], [address] WBC (Bld) [#/Vol] 5.8 10*3/uL Normal 4.4-11.0 [facility] Comment on above: Order Comment: 104-1 Performed By: #### L 9200.0000 #### [facility] [address] [place], [address] 36on 11-14-2024 36 Normal [facility] 36on 11-08-2024 36 Fidel called to state that she spoke with Mel and she would like to proceed with angio. Normal [facility] Progress Noteon 11-05-2024 Progress Note Normal [facility] Anion gap in Serum or Plasma Ordered By: Megan Montoya on 10-08-2024 Anion gap [Moles/Vol] 12 mmol/L 5- [facility] BUN/creatinine ratioOrdered By: Megan Montoya on 10-08-2024 Urea nitrogen/Creatinine [Mass ratio] 16.5 mg/mg - [facility] Basic Metabolic Profile (BMP )on 10-08-2024 BUN/CRE 16.5 RATIO Normal - [facility] Comment on above: Order Comment: 104.1 Performed By: #### L 500.2500, L100.0500 #### [facility] [address] [place], [address] Calcium [Mass/Vol] 9.0 mg/dL Normal 7.6-11.0 [facility] Comment on above: Order Comment: 104.1 Performed By: #### L 500.2500, L100.0500 #### [facility] [address] [place], [address] Chloride [Moles/Vol] 106 mmol/L Normal 98-108 [facility] Comment on above: Order Comment: 104.1 Performed By: #### L 500.2500, L100.0500 #### [facility] [address] [place], [address] CO2 [Moles/Vol] 20.0 mmol/L Low 21.0-32.0 [facility] Comment on above: Order Comment: 104.1 Performed By: #### L 500.2500, L100.0500 #### [facility] [address] [place], [address] Creatinine [Mass/Vol] 1.05 mg/dL Normal 0.70-1.20 [facility] Comment on above: Order Comment: 104.1 Performed By: #### L 500.2500, L100.0500 #### [facility] [address] [place], [address] GAP 12 Normal 5-15 [facility] Comment on above: Order Comment: 104.1 Performed By: #### L 500.2500, L100.0500 #### [facility] [address] [place], [address] GFR/1.73 sq M.predicted among non-blacks MDRD (S/P/Bld) [Vol rate/Area] 52 mL/min/{1.73_m2} Low >60 [facility] Comment on above: Order Comment: 104.1 Result Comment: mL/m in/1.73m2 CKD-EPI Creatinine Equation (2020) Performed By: #### L 500.2500, L100.0500 #### [facility] [address] [place], [address] Glucose [Mass/Vol] 98 mg/dL Normal 70-99 [facility] Comment on above: Order Comment: 104.1 Performed By: #### L 500.2500, L100.0500 #### [facility] [address] [place], [address] Potassium [Moles/Vol] 4.3 mmol/L Normal 3.3-5.1 [facility] Comment on above: Order Comment: 104.1 Result Comment: Hemo lysis present, Results??could be affected. ?? Performed By: #### L 500.2500, L100.0500 #### [facility] [address] [place], [address] Sodium [Moles/Vol] 137 mmol/L Normal 133-145 [facility] Comment on above: Order Comment: 104.1 Performed By: #### L 500.2500, L100.0500 #### [facility] [address] [place], [address] Urea nitrogen [Mass/Vol] 17 mg/dL Normal 4-19 [facility] Comment on above: Order Comment: 104.1 Performed By: #### L 500.2500, L100.0500 #### [facility] [address] [place], [address] CBC-Complete Blood Cnt No Di ffon 10-08-2024 Erythrocyte distribution width (RBC) [Ratio] 17.5 % High 11.6-14.6 [facility] Comment on above: Order Comment: 104.1 Performed By: #### L 500.2500, L100.0500 #### [facility] [address] [place], [address] Hematocrit (Bld) [Volume fraction] 30.4 % Low 37-47 [facility] Comment on above: Order Comment: 104.1 Performed By: #### L 500.2500, L100.0500 #### [facility] [address] [place], [address] Hemoglobin (Bld) [Mass/Vol] 9.6 g/dL Low 12.0-15.0 [facility] Comment on above: Order Comment: 104.1 Performed By: #### L 500.2500, L100.0500 #### [facility] [address] [place], [address] MCH (RBC) [Entitic mass] 27.4 pg Normal 27.0-32.0 [facility] Comment on above: Order Comment: 104.1 Performed By: #### L 500.2500, L100.0500 #### [facility] [address] [place], [address] MCHC (RBC) [Mass/Vol] 31.6 g/dL Low 32-36 [facility] Comment on above: Order Comment: 104.1 Performed By: #### L 500.2500, L100.0500 #### [facility] [address] [place], [address] MCV (RBC) [Entitic vol] 86.9 fL Normal 81-99 [facility] Comment on above: Order Comment: 104.1 Performed By: #### L 500.2500, L100.0500 #### [facility] [address] [place], [address] Platelet mean volume (Bld) [Entitic vol] 10.3 fL Normal 6.2-12.0 [facility] Comment on above: Order Comment: 104.1 Performed By: #### L 500.2500, L100.0500 #### [facility] [address] [place], [address] Platelets (Bld) [#/Vol] 408 10*3/uL Normal 150-450 [facility] Comment on above: Order Comment: 104.1 Performed By: #### L 500.2500, L100.0500 #### [facility] [address] [place], [address] RBC (Bld) [#/Vol] 3.50 10*6/uL Low 4.2-5.4 [facility] Comment on above: Order Comment: 104.1 Performed By: #### L 500.2500, L100.0500 #### [facility] [address] [place], [address] RDW SD 56.2 fl High 35.1-43.9 [facility] Comment on above: Order Comment: 104.1 Performed By: #### L 500.2500, L100.0500 #### [facility] [address] [place], [address] WBC (Bld) [#/Vol] 6.4 10*3/uL Normal 4.4-11.0 [facility] Comment on above: Order Comment: 104.1 Performed By: #### L 500.2500, L100.0500 #### [facility] [address] [place], [address] Carbon dioxide, total [Moles /volume] in Central venous bloodOrdered By: Megan Montoya on 10-08-2024 CO2 [Moles/Vol] 20.0 mmol/L Low 21.0-32.0 [facility] Chloride assayOrdered By: Johnathan Guzman on 10-08-2024 Chloride [Moles/Vol] 106 mmol/L 98-108 [facility] Erythrocyte distribution wid th ratioOrdered By: Megan Montoya on 10-08-2024 Erythrocyte distribution width (RBC) [Ratio] 17.5 % High 11.6-14.6 [facility] Erythrocyte distribution wid th standard deviationOrdered By: Megan Montoya on 10-08-2024 Erythrocyte distribution width (RBC) [Entitic vol] 56.2 fL High 35.1-43.9 [facility] GFR/1.73 sq M.predicted gricelda g non-blacks MDRD (S/P/Bld) [Vol rate/Area]Ordered By: Megan Montoya on 10-08-2024 Estimated GFR (MDRD) Non-Af Amer 52 Low >60 [facility] Comment on above: mL/min/1.73m2 CKD-EP I Creatinine Equation (2020) Hematocrit Auto (Bld) [Volum e fraction]Ordered By: Megan Montoya on 10-08-2024 Hematocrit (Bld) [Volume fraction] 30.4 % Low 37-47 [facility] Hemoglobin measurementOrdere d By: Megan Montoya on 10-08-2024 Hemoglobin (Bld) [Mass/Vol] 9.6 g/dL Low 12.0-15.0 [facility] MCV (mean corpuscular volume ) determinationOrdered By: Megan Montoya on 10-08-2024 MCV (RBC) [Entitic vol] 86.9 fL 81-99 [facility] Mean corpuscular hemoglobin (MCH) determinationOrdered By: Megan Montoya on 10-08-2024 MCH (RBC) [Entitic mass] 27.4 pg 27.0-32.0 [facility] Mean corpuscular hemoglobin concentration (MCHC) determinationOrdered By: Megan Montoya on 10-08-2024 MCHC (RBC) [Mass/Vol] 31.6 g/dL Low 32-36 [facility] Mean platelet volume determi nationOrdered By: Megan Montoya on 10-08-2024 Platelet mean volume (Bld) [Entitic vol] 10.3 fL 6.2-12.0 [facility] Platelet countOrdered By: Johnathan Guzman on 10-08-2024 Platelets (Bld) [#/Vol] 408 10*3/uL 150-450 [facility] Potassium (Unsp spec) [Mass/ Vol]Ordered By: Megan Montoya on 10-08-2024 Potassium [Moles/Vol] 4.3 mmol/L 3.3-5.1 [facility] Comment on above: Hemolysis present, R esults could be affected. RBC Auto (Bld) [#/Vol]Ordere d By: Megan Montoya on 10-08-2024 RBC (Bld) [#/Vol] 3.50 10*6/uL Low 4.2-5.4 [facility] Serum creatinine measurement (mass/volume)Ordered By: Megan Montoya on 10-08-2024 Creatinine [Mass/Vol] 1.05 mg/dL 0.70-1.20 [facility] Serum glucose measurement (m ass/volume)Ordered By: Megan Montoya on 10-08-2024 Glucose [Mass/Vol] 98 mg/dL 70-99 [facility] Serum or plasma calcium reyna urement (mass/volume)Ordered By: Megan Montoya on 10-08-2024 Calcium [Mass/Vol] 9.0 mg/dL 7.6-11.0 [facility] Serum or plasma urea nitroge n measurement (mass/volume)Ordered By: Megan Montoya on 10-08-2024 Urea nitrogen [Mass/Vol] 17 mg/dL 4-19 [facility] Sodium levelOrdered By: Juan C Montoya on 10-08-2024 Sodium [Moles/Vol] 137 mmol/L 133-145 [facility] White blood cell (WBC) count Ordered By: Megan Montoya on 10-08-2024 WBC (Bld) [#/Vol] 6.4 10*3/uL 4.4-11.0 [facility] BSCAN OD (RIGHT EYE)on 10-01 [facility] Radiology Study observation (narrative) [facility] BUN/creatinine ratioOrdered By: Megan Montoya on 09-17-2024 Urea nitrogen/Creatinine [Mass ratio] 15.7 mg/mg 10- [facility] Basic Metabolic Profile (BMP )on 09-17-2024 Anion gap [Moles/Vol] 10 mmol/L Normal 5- [facility] Comment on above: Order Comment: 104.1 Performed By: #### L 9200.0000 #### [facility] [address] [place], [address] BUN/CRE 15.7 RATIO Normal - [facility] Comment on above: Order Comment: 104.1 Performed By: #### L 9200.0000 #### [facility] [address] [place], [address] Calcium [Mass/Vol] 9.0 mg/dL Normal 7.6-11.0 [facility] Comment on above: Order Comment: 104.1 Performed By: #### L 9200.0000 #### [facility] [address] [place], [address] Chloride [Moles/Vol] 108 mmol/L Normal 96-108 [facility] Comment on above: Order Comment: 104.1 Performed By: #### L 9200.0000 #### [facility] [address] [place], [address] CO2 [Moles/Vol] 21.6 mmol/L Low 22.0-29.0 [facility] Comment on above: Order Comment: 104.1 Performed By: #### L 9200.0000 #### [facility] [address] [place], [address] Creatinine [Mass/Vol] 1.03 mg/dL Normal 0.70-1.20 [facility] Comment on above: Order Comment: 104.1 Performed By: #### L 9200.0000 #### [facility] [address] [place], [address] GFR/1.73 sq M.predicted among non-blacks MDRD (S/P/Bld) [Vol rate/Area] 54 mL/min/{1.73_m2} Low >60 [facility] Comment on above: Order Comment: 104.1 Result Comment: mL/m in/1.73m2 CKD-EPI Creatinine Equation (2020) Performed By: #### L 9200.0000 #### [facility] [address] [place], [address] Glucose [Mass/Vol] 90 mg/dL Normal 70-99 [facility] Comment on above: Order Comment: 104.1 Performed By: #### L 9200.0000 #### [facility] [address] [place], [address] Potassium [Moles/Vol] 4.5 mmol/L Normal 3.3-5.1 [facility] Comment on above: Order Comment: 104.1 Performed By: #### L 9200.0000 #### [facility] [address] [place], [place], [address] Sodium [Moles/Vol] 140 mmol/L Normal 133-145 [facility] Comment on above: Order Comment: 104.1 Performed By: #### L 9200.0000 #### [facility] [address] [place], [address] Urea nitrogen [Mass/Vol] 16 mg/dL Normal 4-19 [facility] Comment on above: Order Comment: 104.1 Performed By: #### L 9200.0000 #### [facility] [address] [place], [place], [address] Carbon dioxide measurementOr dered By: Megan Montoya on 09-17-2024 CO2 [Moles/Vol] 21.6 mmol/L Low 22.0-29.0 [facility] Chloride measurementOrdered By: Megan Montoya on 09-17-2024 Chloride [Moles/Vol] 108 mmol/L 96-108 [facility] GFR/1.73 sq M.predicted gricelda g non-blacks MDRD (S/P/Bld) [Vol rate/Area]Ordered By: Megan Montoya on 09-17-2024 Estimated GFR (MDRD) Non-Af Amer 54 Low >60 [facility] Comment on above: mL/min/1.73m2 CKD-EP I Creatinine Equation (2020) Serum creatinine measurement (mass/volume)Ordered By: Megan Montoya on 09-17-2024 Creatinine [Mass/Vol] 1.03 mg/dL 0.70-1.20 [facility] Serum glucose measurement (m ass/volume)Ordered By: Megan Montoya on 09-17-2024 Glucose [Mass/Vol] 90 mg/dL 70-99 [facility] Serum or plasma anion gap de termination (moles/volume)Ordered By: Megan Montoya on 09-17-2024 Anion gap [Moles/Vol] 10 mmol/L 5-15 [facility] Serum or plasma calcium reyna urement (mass/volume)Ordered By: Megan Montoya on 09-17-2024 Calcium [Mass/Vol] 9.0 mg/dL 7.6-11.0 [facility] Serum or plasma potassium me asurementOrdered By: Megan Montoya on 09-17-2024 Potassium [Moles/Vol] 4.5 mmol/L 3.3-5.1 [facility] Serum or plasma sodium measu rement (moles/volume)Ordered By: Megan Montoya on 09-17-2024 Sodium [Moles/Vol] 140 mmol/L 133-145 [facility] Serum or plasma urea nitroge n measurement (mass/volume)Ordered By: Megan Montoya on 09-17-2024 Urea nitrogen [Mass/Vol] 16 mg/dL 4-19 [facility] Basic Metabolic Profile (BMP )on 09-10-2024 BUN/CRE 17.9 RATIO Normal 10-20 [facility] Comment on above: Order Comment: 104.1 Performed By: #### L 9200.0000 #### [facility] [address] [place], [address] CA,Total 9.0 mg/dL Normal 8.5-10.1 [facility] Comment on above: Order Comment: 104.1 Performed By: #### L 9200.0000 #### [facility] [address] [place], [address] Chloride [Moles/Vol] 108 mmol/L High 98-107 [facility] Comment on above: Order Comment: 104.1 Performed By: #### L 9200.0000 #### [facility] [address] [place], [address] CO2 [Moles/Vol] 24.0 mmol/L Normal 21.0-32.0 [facility] Comment on above: Order Comment: 104.1 Performed By: #### L 9200.0000 #### [facility] [address] [place], [address] Creatinine [Mass/Vol] 1.23 mg/dL High 0.55-1.02 [facility] Comment on above: Order Comment: 104.1 Result Comment: The validity of the calculated GFR GFRAA in patients over 70 years has not been determined. Clinical correlation is essential. Performed By: #### L 9200.0000 #### [facility] [address] [place], [address] EST GFR - AA 53 mL/min Low >60 [facility] Comment on above: Order Comment: 104.1 Result Comment: Afri can Nigerien GFR Calc Performed By: #### L 9200.0000 #### [facility] [address] [place], [address] GAP 5 Normal 5-15 [facility] Comment on above: Order Comment: 104.1 Performed By: #### L 9200.0000 #### [facility] [address] [place], [address] GFR/1.73 sq M.predicted among non-blacks MDRD (S/P/Bld) [Vol rate/Area] 44 mL/min/{1.73_m2} Low >60 [facility] Comment on above: Order Comment: 104.1 Result Comment: Non- GFR Calc Performed By: #### L 9200.0000 #### [facility] [address] [place], [address] Glucose [Mass/Vol] 98 mg/dL Normal 74-106 [facility] Comment on above: Order Comment: 104.1 Performed By: #### L 9200.0000 #### [facility] [address] [place], [address] Potassium [Moles/Vol] 4.5 mmol/L Normal 3.5-5.1 [facility] Comment on above: Order Comment: 104.1 Performed By: #### L 9200.0000 #### [facility] [address] [place], [address] Sodium [Moles/Vol] 137 mmol/L Normal 136-145 [facility] Comment on above: Order Comment: 104.1 Performed By: #### L 9200.0000 #### [facility] [address] [place], [address] Urea nitrogen [Mass/Vol] 22 mg/dL High 7-18 [facility] Comment on above: Order Comment: 104.1 Performed By: #### L 9200.0000 #### [facility] [address] [place], [address] Blood urea nitrogen (BUN)/cr eatinine ratioOrdered By: Megan Montoya on 09-10-2024 Urea nitrogen/Creatinine [Mass ratio] 17.9 mg/mg 10-20 [facility] CBC-Complete Blood Cnt No Di ffon 09-10-2024 Erythrocyte distribution width (RBC) [Ratio] 17.8 % High 11.6-14.6 [facility] Comment on above: Order Comment: 104.1 Performed By: #### L 9200.0000 #### [facility] [address] [place], [address] Hematocrit (Bld) [Volume fraction] 31.9 % Low 37-47 [facility] Comment on above: Order Comment: 104.1 Performed By: #### L 9200.0000 #### [facility] [address] [place], [address] Hemoglobin (Bld) [Mass/Vol] 9.7 g/dL Low 12.0-15.0 [facility] Comment on above: Order Comment: 104.1 Performed By: #### L 9200.0000 #### [facility] [address] [place], [address] MCH (RBC) [Entitic mass] 26.1 pg Low 27.0-32.0 [facility] Comment on above: Order Comment: 104.1 Performed By: #### L 9200.0000 #### [facility] [address] [place], [address] MCHC (RBC) [Mass/Vol] 30.4 g/dL Low 32-36 [facility] Comment on above: Order Comment: 104.1 Performed By: #### L 9200.0000 #### [facility] [address] [place], [address] MCV (RBC) [Entitic vol] 85.8 fL Normal 81-99 [facility] Comment on above: Order Comment: 104.1 Performed By: #### L 9200.0000 #### [facility] [address] [place], [address] Platelet mean volume (Bld) [Entitic vol] 9.5 fL Normal 6.2-12.0 [facility] Comment on above: Order Comment: 104.1 Performed By: #### L 9200.0000 #### [facility] [address] [place], [address] Platelets (Bld) [#/Vol] 485 10*3/uL High 150-450 [facility] Comment on above: Order Comment: 104.1 Performed By: #### L 9200.0000 #### [facility] [address] [place], [address] RBC (Bld) [#/Vol] 3.72 10*6/uL Low 4.2-5.4 [facility] Comment on above: Order Comment: 104.1 Performed By: #### L 9200.0000 #### [facility] [address] [place], [address] RDW SD 55.2 fl High 35.1-43.9 [facility] Comment on above: Order Comment: 104.1 Performed By: #### L 9200.0000 #### [facility] [address] [place], [address] WBC (Bld) [#/Vol] 7.7 10*3/uL Normal 4.4-11.0 [facility] Comment on above: Order Comment: 104.1 Performed By: #### L 9200.0000 #### [facility] [address] [place], [address] Carbon dioxide measurementOr dered By: Megan Montoya on 09-10-2024 CO2 [Moles/Vol] 24.0 mmol/L 21.0-32.0 [facility] Chloride measurementOrdered By: Megan Montoya on 09-10-2024 Chloride [Moles/Vol] 108 mmol/L High 98-107 [facility] Erythrocyte distribution wid th ratioOrdered By: Megan Montoya on 09-10-2024 Erythrocyte distribution width (RBC) [Ratio] 17.8 % High 11.6-14.6 [facility] Erythrocyte distribution wid th standard deviationOrdered By: Megan Montoya on 09-10-2024 Erythrocyte distribution width (RBC) [Entitic vol] 55.2 fL High 35.1-43.9 [facility] Estimated glomerular filtrat ion rate (GFR) AmericanOrdered By: Megan Montoya on 09-10-2024 Estimated GFR (MDRD) Amer 53 mL/min Low >60 [facility] Comment on above: GFR Calc Glomerular filtration rate ( GFR) estimationOrdered By: Megan Montoya on 09-10-2024 Estimated GFR (MDRD) Non-Af Amer 44 mL/min Low >60 [facility] Comment on above: Non- GFR Calc Glucose measurementOrdered B y: Megan Montoya on 09-10-2024 Glucose [Mass/Vol] 98 mg/dL 74-106 [facility] Hematocrit Auto (Bld) [Volum e fraction]Ordered By: Megan Montoya on 09-10-2024 Hematocrit (Bld) [Volume fraction] 31.9 % Low 37-47 [facility] Hemoglobin measurementOrdere d By: Megan Montoya on 09-10-2024 Hemoglobin (Bld) [Mass/Vol] 9.7 g/dL Low 12.0-15.0 [facility] MCV (mean corpuscular volume ) determinationOrdered By: Megan Montoya on 09-10-2024 MCV (RBC) [Entitic vol] 85.8 fL 81-99 [facility] Mean corpuscular hemoglobin (MCH) determinationOrdered By: Megan Montoya on 09-10-2024 MCH (RBC) [Entitic mass] 26.1 pg Low 27.0-32.0 [facility] Mean corpuscular hemoglobin concentration (MCHC) determinationOrdered By: Megan Montoya on 09-10-2024 MCHC (RBC) [Mass/Vol] 30.4 g/dL Low 32-36 [facility] Mean platelet volume determi nationOrdered By: Megan Montoya on 09-10-2024 Platelet mean volume (Bld) [Entitic vol] 9.5 fL 6.2-12.0 [facility] Platelet countOrdered By: Johnathan Guzman on 09-10-2024 Platelets (Bld) [#/Vol] 485 10*3/uL High 150-450 [facility] Potassium measurementOrdered By: Megan Montoya on 09-10-2024 Potassium [Moles/Vol] 4.5 mmol/L 3.5-5.1 [facility] RBC Auto (Bld) [#/Vol]Ordere d By: Megan Montoya on 09-10-2024 RBC (Bld) [#/Vol] 3.72 10*6/uL Low 4.2-5.4 [facility] Serum anion gap measurementO rdered By: Megan Montoya on 09-10-2024 Anion gap [Moles/Vol] 5 mmol/L 5-15 [facility] Serum or plasma calcium reyna urement (mass/volume)Ordered By: Megan Montoya on 09-10-2024 Calcium [Mass/Vol] 9.0 mg/dL 8.5-10.1 [facility] Serum or plasma creatinine m easurement (mass/volume)Ordered By: Megan Montoya on 09-10-2024 Creatinine [Mass/Vol] 1.23 mg/dL High 0.55-1.02 [facility] Comment on above: The validity of the calculated GFR & GFRAA in patients over 70 years has not been determined. Clinical correlation is essential. Serum or plasma urea nitroge n measurement (mass/volume)Ordered By: Megan Montoya on 09-10-2024 Urea nitrogen [Mass/Vol] 22 mg/dL High 7-18 [facility] Sodium levelOrdered By: Juan C Montoya on 09-10-2024 Sodium [Moles/Vol] 137 mmol/L 136-145 [facility] White blood cell (WBC) count Ordered By: Megan Montoya on 09-10-2024 WBC (Bld) [#/Vol] 7.7 10*3/uL 4.4-11.0 [facility] Urine Cultureon 09-06-2024 [facility] UNKNOWN METHOD OF COLLECTION Proteus mirabilis Zeigler Count 50,000-80,000 Klebsiella pneumoniae sp pneum Klebsiella [...] TMP SMX Islt AGATA <=20 S Normal [facility] Comment on above: Performed By: #### L 9200.0000 #### [facility] [address] [place], [address] Urinalysis, Completeon 09-04 BACTERIA 4+ /hpf Normal None Seen [facility] Comment on above: Order Comment: UNKNO WN METHOD OF COLLECTIONCLEAN CATCH Performed By: #### L 9200.0000 #### [facility] [address] [place], [address] EPI,SQUAMOUS 10-25 SEEN Normal 5-10 [facility] Comment on above: Order Comment: UNKNO WN METHOD OF COLLECTIONCLEAN CATCH Performed By: #### L 9200.0000 #### [facility] [address] [place], [address] Mucus Ql (Urine sed) 1+ /hpf Normal [facility] Comment on above: Order Comment: UNKNO WN METHOD OF COLLECTIONCLEAN CATCH Performed By: #### L 9200.0000 #### [facility] [address] [place], [address] RBC 5-10 SEEN Normal 0-5 [facility] Comment on above: Order Comment: UNKNO WN METHOD OF COLLECTIONCLEAN CATCH Performed By: #### L 9200.0000 #### [facility] [address] [place], [address] WBC 50-100 SEEN Normal 0-5 [facility] Comment on above: Order Comment: UNKNO WN METHOD OF COLLECTIONCLEAN CATCH Performed By: #### L 9200.0000 #### [facility] [address] [place], [address] Basic Metabolic Profile (BMP )on 09-03-2024 BUN/CRE 20.7 RATIO High 10-20 [facility] Comment on above: Order Comment: 104-1 Performed By: #### L 9200.0000 #### [facility] [address] [place], [address] CA,Total 9.4 mg/dL Normal 8.5-10.1 [facility] Comment on above: Order Comment: 104-1 Performed By: #### L 9200.0000 #### [facility] [address] [place], [address] Chloride [Moles/Vol] 109 mmol/L High 98-107 [facility] Comment on above: Order Comment: 104-1 Performed By: #### L 9200.0000 #### [facility] [address] [place], [address] CO2 [Moles/Vol] 21.0 mmol/L Normal 21.0-32.0 [facility] Comment on above: Order Comment: 104-1 Performed By: #### L 9200.0000 #### [facility] [address] [place], [address] Creatinine [Mass/Vol] 0.92 mg/dL Normal 0.55-1.02 [facility] Comment on above: Order Comment: 104-1 Result Comment: The validity of the calculated GFR GFRAA in patients over 70 years has not been determined. Clinical correlation is essential. Performed By: #### L 9200.0000 #### [facility] [address] [place], [address] EST GFR - AA 75 mL/min Normal >60 [facility] Comment on above: Order Comment: 104-1 Result Comment: Afri can Nigerien GFR Calc Performed By: #### L 9200.0000 #### [facility] [address] [place], [address] GAP 9 Normal 5-15 [facility] Comment on above: Order Comment: 104-1 Performed By: #### L 9200.0000 #### [facility] [address] [place], [address] GFR/1.73 sq M.predicted among non-blacks MDRD (S/P/Bld) [Vol rate/Area] 62 mL/min/{1.73_m2} Normal >60 [facility] Comment on above: Order Comment: 104-1 Result Comment: Non- GFR Calc Performed By: #### L 9200.0000 #### [facility] [address] [place], [address] Glucose [Mass/Vol] 115 mg/dL High 74-106 [facility] Comment on above: Order Comment: 104-1 Result Comment: Fast ing Glucose result from 100 to 125 mg/dL suggests IMPAIRED HOMEOSTASIS per A.D.A. criteria. Performed By: #### L 9200.0000 #### [facility] [address] [place], [address] Potassium [Moles/Vol] 4.4 mmol/L Normal 3.5-5.1 [facility] Comment on above: Order Comment: 104-1 Performed By: #### L 9200.0000 #### [facility] [address] [place], [address] Sodium [Moles/Vol] 139 mmol/L Normal 136-145 [facility] Comment on above: Order Comment: 104-1 Performed By: #### L 9200.0000 #### [facility] [address] [place], [address] Urea nitrogen [Mass/Vol] 19 mg/dL High 7-18 [facility] Comment on above: Order Comment: 104-1 Performed By: #### L 9200.0000 #### [facility] [address] [place], [address] Bilirubin Test strip Ql (U)O rdered By: Megan Montoya on 09-03-2024 Bilirubin Ql (U) Negative Negative [facility] Blood urea nitrogen (BUN)/cr eatinine ratioOrdered By: Megan Montoya on 09-03-2024 Urea nitrogen/Creatinine [Mass ratio] 20.7 mg/mg High 10-20 [facility] CBC-Complete Blood Cnt No Di ffon 09-03-2024 Erythrocyte distribution width (RBC) [Ratio] 17.9 % High 11.6-14.6 [facility] Comment on above: Order Comment: 104-1 Performed By: #### L 9200.0000 #### [facility] [address] [place], [address] Hematocrit (Bld) [Volume fraction] 30.8 % Low 37-47 [facility] Comment on above: Order Comment: 104-1 Performed By: #### L 9200.0000 #### [facility] [address] [place], [address] Hemoglobin (Bld) [Mass/Vol] 9.5 g/dL Low 12.0-15.0 [facility] Comment on above: Order Comment: 104-1 Performed By: #### L 9200.0000 #### [facility] [address] [place], [address] MCH (RBC) [Entitic mass] 25.7 pg Low 27.0-32.0 [facility] Comment on above: Order Comment: 104-1 Performed By: #### L 9200.0000 #### [facility] [address] [place], [address] MCHC (RBC) [Mass/Vol] 30.8 g/dL Low 32-36 [facility] Comment on above: Order Comment: 104-1 Performed By: #### L 9200.0000 #### [facility] [address] [place], [address] MCV (RBC) [Entitic vol] 83.5 fL Normal 81-99 [facility] Comment on above: Order Comment: 104-1 Performed By: #### L 9200.0000 #### [facility] [address] [place], [address] Platelet mean volume (Bld) [Entitic vol] 10.2 fL Normal 6.2-12.0 [facility] Comment on above: Order Comment: 104-1 Performed By: #### L 9200.0000 #### [facility] [address] [place], [address] Platelets (Bld) [#/Vol] 431 10*3/uL Normal 150-450 [facility] Comment on above: Order Comment: 104-1 Performed By: #### L 9200.0000 #### [facility] [address] [place], [address] RBC (Bld) [#/Vol] 3.69 10*6/uL Low 4.2-5.4 [facility] Comment on above: Order Comment: 104-1 Performed By: #### L 9200.0000 #### [facility] [address] [place], [address] RDW SD 54.3 fl High 35.1-43.9 [facility] Comment on above: Order Comment: 104-1 Performed By: #### L 9200.0000 #### [facility] [address] [place], [address] WBC (Bld) [#/Vol] 10.6 10*3/uL Normal 4.4-11.0 [facility] Comment on above: Order Comment: 104-1 Performed By: #### L 9200.0000 #### [facility] [address] [place], [address] Carbon dioxide measurementOr dered By: Megan Montoya on 09-03-2024 CO2 [Moles/Vol] 21.0 mmol/L 21.0-32.0 [facility] Chloride measurementOrdered By: Megan Montoya on 09-03-2024 Chloride [Moles/Vol] 109 mmol/L High 98-107 [facility] Epithelial cells.squamous LM Ql (Urine sed)Ordered By: Megan Montoya on 09-03-2024 Epithelial cells.squamous LM.HPF (Urine sed) [#/Area] 10 /[HPF] 5-10 [facility] Erythrocyte distribution wid th ratioOrdered By: Megan Montoya on 09-03-2024 Erythrocyte distribution width (RBC) [Ratio] 17.9 % High 11.6-14.6 [facility] Erythrocyte distribution wid th standard deviationOrdered By: Megan Montoya on 09-03-2024 Erythrocyte distribution width (RBC) [Entitic vol] 54.3 fL High 35.1-43.9 [facility] Estimated glomerular filtrat ion rate (GFR) AmericanOrdered By: Megan Montoya on 09-03-2024 Estimated GFR (MDRD) Amer 75 mL/min >60 [facility] Comment on above: GFR Calc Glomerular filtration rate ( GFR) estimationOrdered By: Megan Montoya on 09-03-2024 Estimated GFR (MDRD) Non-Af Amer 62 mL/min >60 [facility] Comment on above: Non- GFR Calc Glucose Ql (U)Ordered By: Johnathan Guzman on 09-03-2024 Urine Glucose (UA) Normal mg/dl Normal [facility] Glucose measurementOrdered B y: Megan Montoya on 09-03-2024 Glucose [Mass/Vol] 115 mg/dL High 74-106 [facility] Comment on above: Fasting Glucose resu lt from 100 to 125 mg/dL suggests IMPAIRED HOMEOSTASIS per A.D.A. criteria. Hematocrit Auto (Bld) [Volum e fraction]Ordered By: Megan Montoya on 09-03-2024 Hematocrit (Bld) [Volume fraction] 30.8 % Low 37-47 [facility] Hemoglobin measurementOrdere d By: Megan Montoya on 09-03-2024 Hemoglobin (Bld) [Mass/Vol] 9.5 g/dL Low 12.0-15.0 [facility] Ketones Test strip Ql (U)Ord ered By: Megan Montoya on 09-03-2024 Ketones Ql (U) 5 mg/dl High Negative [facility] MCV (mean corpuscular volume ) determinationOrdered By: Megan Montoya on 09-03-2024 MCV (RBC) [Entitic vol] 83.5 fL 81-99 [facility] Mean corpuscular hemoglobin (MCH) determinationOrdered By: Megan Montoya on 09-03-2024 MCH (RBC) [Entitic mass] 25.7 pg Low 27.0-32.0 [facility] Mean corpuscular hemoglobin concentration (MCHC) determinationOrdered By: Megan Montoya on 09-03-2024 MCHC (RBC) [Mass/Vol] 30.8 g/dL Low 32-36 [facility] Mean platelet volume determi nationOrdered By: Megan Montoya on 09-03-2024 Platelet mean volume (Bld) [Entitic vol] 10.2 fL 6.2-12.0 [facility] Microscopic analysis of urin e for red blood cells (RBC)Ordered By: Megan Montoya on 09-03-2024 Urine RBC 5-10 SEEN /hpf 0-5 [facility] Mucus LM Ql (Urine sed)Order ed By: Megan Montoya on 09-03-2024 Mucus Ql (Urine sed) 1+ /hpf [facility] Nitrite Test strip Ql (U)Ord ered By: Megan Montoya on 09-03-2024 Nitrite Ql (U) Positive High Negative [facility] Platelet countOrdered By: Johnathan Guzman on 09-03-2024 Platelets (Bld) [#/Vol] 431 10*3/uL 150-450 [facility] Potassium measurementOrdered By: Megan Montoya on 09-03-2024 Potassium [Moles/Vol] 4.4 mmol/L 3.5-5.1 [facility] Protein Test strip Ql (U)Ord ered By: Megan Montoya on 09-03-2024 Protein Ql (U) 100 mg/dl High Negative [facility] RBC Auto (Bld) [#/Vol]Ordere d By: Megan Montoya on 09-03-2024 RBC (Bld) [#/Vol] 3.69 10*6/uL Low 4.2-5.4 [facility] Serum anion gap measurementO rdered By: Megan Montoya on 09-03-2024 Anion gap [Moles/Vol] 9 mmol/L 5-15 [facility] Serum or plasma calcium reyna urement (mass/volume)Ordered By: Megan Montoya on 09-03-2024 Calcium [Mass/Vol] 9.4 mg/dL 8.5-10.1 [facility] Serum or plasma creatinine m easurement (mass/volume)Ordered By: Megan Montoya on 09-03-2024 Creatinine [Mass/Vol] 0.92 mg/dL 0.55-1.02 [facility] Comment on above: The validity of the calculated GFR & GFRAA in patients over 70 years has not been determined. Clinical correlation is essential. Serum or plasma urea nitroge n measurement (mass/volume)Ordered By: Megan Montoya on 09-03-2024 Urea nitrogen [Mass/Vol] 19 mg/dL High 7-18 [facility] Sodium levelOrdered By: Juan C Montoya on 09-03-2024 Sodium [Moles/Vol] 139 mmol/L 136-145 [facility] Urine blood detectionOrdered By: Megan Montoya on 09-03-2024 Urine Occult Blood 150 /ul High Negative [facility] Urine clarityOrdered By: Pola Montoya on 09-03-2024 Clarity (U) Cloudy Clear [facility] Urine color determinationOrd ered By: Megan Montoya on 09-03-2024 Color (U) Yellow Yellow [facility] Urine cultureOrdered By: Pola Montoya on 09-03-2024 Bacteria identified Cx Nom (U) Proteus mirabilis Abnormal [facility] Bacteria identified Cx Nom (U) Klebsiella pneumoniae sp pneum Abnormal [facility] Bacteria identified Cx Nom (U) Proteus mirabilis Abnormal [facility] Bacteria identified Cx Nom (U) Klebsiella pneumoniae sp pneum Abnormal [facility] Urine leukocyte esterase det ection by dipstickOrdered By: Megan Montoya on 09-03-2024 Leukocyte esterase Test strip Ql (U) 500 /ul High Negative [facility] Urine pHOrdered By: Megan jimenez on 09-03-2024 pH (U) 6.0 [pH] 5.0 - 8.0 [facility] Urine sediment bacteria coun t by microscopy (number/high power field)Ordered By: Megan Montoya on 09-03-2024 Bacteria LM.HPF (Urine sed) [#/Area] 4 /[HPF] None Seen [facility] Urine specific gravity measu rementOrdered By: Megan Montoya on 09-03-2024 Specific gravity (U) [Rel density] 1.020 1.002-1.030 [facility] Urobilinogen Ql (U)Ordered B y: Megna Montoya on 09-03-2024 Urine Urobilinogen Normal mg/dl Normal [facility] White blood cell (WBC) count Ordered By: Megan Montoya on 09-03-2024 WBC (Bld) [#/Vol] 10.6 10*3/uL 4.4-11.0 [facility] White blood cell countOrdere d By: Megan Montoya on 09-03-2024 Urine WBC 50-100 SEEN /hpf 0-5 [facility] [id number] 08-27-2024 [id number] Patient Choice Patient Name: MEL POP Date of : 1940 Normal [facility] Progress Noteon 08-22-2024 Progress Note Normal [facility] Albumin to globulin ratioOrd ered By: Megan Montoya on 08-20-2024 Albumin/Globulin [Mass ratio] 0.7 {ratio} Low 0.9-2.4 [facility] Bilirubin, totalOrdered By: Megan Montoya on 08-20-2024 Bilirubin [Mass/Vol] 0.60 mg/dL 0.20-1.00 [facility] Comment on above: For patients on eltr ombopag therapy, use of Dimension [place] TBIL is not recommended. Blood urea nitrogen (BUN)/cr eatinine ratioOrdered By: Megan Montoya on 08-20-2024 Urea nitrogen/Creatinine [Mass ratio] 11.2 mg/mg 10-20 [facility] CBC-Complete Blood Cnt No Di ffon 08-20-2024 Erythrocyte distribution width (RBC) [Ratio] 19.2 % High 11.6-14.6 [facility] Comment on above: Performed By: #### L 100.0500, L500.4050 #### [facility] [address] [place], [address] Hematocrit (Bld) [Volume fraction] 33.4 % Low 37-47 [facility] Comment on above: Performed By: #### L 100.0500, L500.4050 #### [facility] [address] [place], [address] Hemoglobin (Bld) [Mass/Vol] 10.4 g/dL Low 12.0-15.0 [facility] Comment on above: Performed By: #### L 100.0500, [id number] #### [facility] [address] [place], [address] MCH (RBC) [Entitic mass] 26.3 pg Low 27.0-32.0 [facility] Comment on above: Performed By: #### L 100.0500, [id number] #### [facility] [address] [place], [address] MCHC (RBC) [Mass/Vol] 31.1 g/dL Low 32-36 [facility] Comment on above: Performed By: #### L 100.0500, [id number] #### [facility] [address] [place], [address] MCV (RBC) [Entitic vol] 84.6 fL Normal 81-99 [facility] Comment on above: Performed By: #### L 100.0500, [id number] #### [facility] [address] [place], [address] Platelet mean volume (Bld) [Entitic vol] 9.7 fL Normal 6.2-12.0 [facility] Comment on above: Performed By: #### L 100.0500, [id number] #### [facility] [address] [place], [address] Platelets (Bld) [#/Vol] 405 10*3/uL Normal 150-450 [facility] Comment on above: Performed By: #### L 100.0500, [id number] #### [facility] [address] [place], [address] RBC (Bld) [#/Vol] 3.95 10*6/uL Low 4.2-5.4 [facility] Comment on above: Performed By: #### L 100.0500, [id number] #### [facility] [address] [place], [address] RDW SD 58.9 fl High 35.1-43.9 [facility] Comment on above: Performed By: #### L 100.0500, [id number] #### [facility] [address] [place], [address] WBC (Bld) [#/Vol] 5.9 10*3/uL Normal 4.4-11.0 [facility] Comment on above: Performed By: #### L 100.0500, [id number] #### [facility] [address] [place], [address] Carbon dioxide measurementOr dered By: Megan Montoya on 08-20-2024 CO2 [Moles/Vol] 22.0 mmol/L 21.0-32.0 [facility] Chloride measurementOrdered By: Megan Montoya on 08-20-2024 Chloride [Moles/Vol] 109 mmol/L High 98-107 [facility] Comprehensive Metabolic Prof ilon 08-20-2024 Albumin [Mass/Vol] 2.7 g/dL Low 3.2-5.0 [facility] Comment on above: Performed By: #### L 100.0500, [id number] #### [facility] [address] [place], [address] Albumin/Globulin [Mass ratio] 0.7 {ratio} Low 0.9-2.4 [facility] Comment on above: Performed By: #### L 100.0500, [id number] #### [facility] [address] [place], [address] ALK P 117 U/L Normal 45-117 [facility] Comment on above: Performed By: #### L 100.0500, [id number] #### [facility] [address] [place], [address] ALT [Catalytic activity/Vol] 18 U/L Normal 13-56 [facility] Comment on above: Performed By: #### L 100.0500, [id number] #### [facility] [address] [place], [address] AST [Catalytic activity/Vol] 18 U/L Normal 15-37 [facility] Comment on above: Result Comment: Slig ht Hemolysis, Result may be falsely increased. Performed By: #### L 100.0500, [id number] #### [facility] [address] [place], [address] Bilirubin [Mass/Vol] 0.60 mg/dL Normal 0.20-1.00 [facility] Comment on above: Result Comment: For patients on eltrombopag therapy, use of Dimension [place] TBIL is not recommended. Performed By: #### L 100.0500, [id number] #### [facility] [address] [place], [address] BUN/CRE 11.2 RATIO Normal 10-20 [facility] Comment on above: Performed By: #### L 100.0500, [id number] #### [facility] [address] [place], [address] CA,Total 9.0 mg/dL Normal 8.5-10.1 [facility] Comment on above: Performed By: #### L 100.0500, [id number] #### [facility] [address] [place], [address] Chloride [Moles/Vol] 109 mmol/L High 98-107 [facility] Comment on above: Performed By: #### L 100.0500, [id number] #### [facility] [address] [place], [address] CO2 [Moles/Vol] 22.0 mmol/L Normal 21.0-32.0 [facility] Comment on above: Performed By: #### L 100.0500, [id number] #### [facility] [address] [place], [address] Creatinine [Mass/Vol] 0.98 mg/dL Normal 0.55-1.02 [facility] Comment on above: Result Comment: The validity of the calculated GFR GFRAA in patients over 70 years has not been determined. Clinical correlation is essential. Performed By: #### L 100.0500, [id number] #### [facility] [address] [place], [address] EST GFR - AA 69 mL/min Normal >60 [facility] Comment on above: Result Comment: Afri can Nigerien GFR Calc Performed By: #### L 100.0500, [id number] #### [facility] [address] [place], [address] GAP 7 Normal 5-15 [facility] Comment on above: Performed By: #### L 100.0500, [id number] #### [facility] [address] [place], [address] GFR/1.73 sq M.predicted among non-blacks MDRD (S/P/Bld) [Vol rate/Area] 57 mL/min/{1.73_m2} Low >60 [facility] Comment on above: Result Comment: Non- GFR Calc Performed By: #### L 100.0500, [id number] #### [facility] [address] [place], [address] Globulin (S) [Mass/Vol] 4.1 g/dL Normal 2.2-4.2 [facility] Comment on above: Performed By: #### L 100.0500, [id number] #### [facility] [address] [place], [address] Glucose [Mass/Vol] 97 mg/dL Normal 74-106 [facility] Comment on above: Performed By: #### L 100.0500, [id number] #### [facility] [address] [place], [address] Potassium [Moles/Vol] 4.2 mmol/L Normal 3.5-5.1 [facility] Comment on above: Result Comment: Slig ht Hemolysis, Result may be falsely increased. Performed By: #### L 100.0500, [id number] #### [facility] [address] [place], [address] Sodium [Moles/Vol] 138 mmol/L Normal 136-145 [facility] Comment on above: Performed By: #### L 100.0500, [id number] #### [facility] [address] [place], [address] T PROT 6.8 g/dL Normal 6.4-8.2 [facility] Comment on above: Performed By: #### L 100.0500, [id number] #### [facility] [address] [place], [address] Urea nitrogen [Mass/Vol] 11 mg/dL Normal 7-18 [facility] Comment on above: Performed By: #### L 100.0500, [id number] #### [facility] [address] [place], [address] Erythrocyte distribution wid th ratioOrdered By: Megan Montoya on 08-20-2024 Erythrocyte distribution width (RBC) [Ratio] 19.2 % High 11.6-14.6 [facility] Erythrocyte distribution wid th standard deviationOrdered By: Megan Montoya on 08-20-2024 Erythrocyte distribution width (RBC) [Entitic vol] 58.9 fL High 35.1-43.9 [facility] Estimated glomerular filtrat ion rate (GFR) AmericanOrdered By: Megan Montoya on 08-20-2024 Estimated GFR (MDRD) Amer 69 mL/min >60 [facility] Comment on above: GFR Calc Glomerular filtration rate ( GFR) estimationOrdered By: Megan Montoya on 08-20-2024 Estimated GFR (MDRD) Non-Af Amer 57 mL/min Low >60 [facility] Comment on above: Non- GFR Calc Glucose measurementOrdered B y: Megan Montoya on 08-20-2024 Glucose [Mass/Vol] 97 mg/dL 74-106 [facility] Hematocrit Auto (Bld) [Volum e fraction]Ordered By: Megan Montoya on 08-20-2024 Hematocrit (Bld) [Volume fraction] 33.4 % Low 37-47 [facility] Hemoglobin measurementOrdere d By: Megan Montoya on 08-20-2024 Hemoglobin (Bld) [Mass/Vol] 10.4 g/dL Low 12.0-15.0 [facility] Laboratory - Chemistry and C hemistry - challengeOrdered By: Megan Montoya on 08-20-2024 AST [Catalytic activity/Vol] 18 U/L 15-37 [facility] Comment on above: Slight Hemolysis, Re sult may be falsely increased. MCV (mean corpuscular volume ) determinationOrdered By: Megan Montoya on 08-20-2024 MCV (RBC) [Entitic vol] 84.6 fL 81-99 [facility] Mean corpuscular hemoglobin (MCH) determinationOrdered By: Megan Montoya on 08-20-2024 MCH (RBC) [Entitic mass] 26.3 pg Low 27.0-32.0 [facility] Mean corpuscular hemoglobin concentration (MCHC) determinationOrdered By: Megan Montoya on 08-20-2024 MCHC (RBC) [Mass/Vol] 31.1 g/dL Low 32-36 [facility] Mean platelet volume determi nationOrdered By: Megan Montoya on 08-20-2024 Platelet mean volume (Bld) [Entitic vol] 9.7 fL 6.2-12.0 [facility] Platelet countOrdered By: Johnathan Guzman on 08-20-2024 Platelets (Bld) [#/Vol] 405 10*3/uL 150-450 [facility] Potassium measurementOrdered By: Megan Montoya on 08-20-2024 Potassium [Moles/Vol] 4.2 mmol/L 3.5-5.1 [facility] Comment on above: Slight Hemolysis, Re sult may be falsely increased. RBC Auto (Bld) [#/Vol]Ordere d By: Megan Montoya on 08-20-2024 RBC (Bld) [#/Vol] 3.95 10*6/uL Low 4.2-5.4 [facility] Serum anion gap measurementO rdered By: Megan Montoya on 08-20-2024 Anion gap [Moles/Vol] 7 mmol/L 5-15 [facility] Serum globulin measurementOr dered By: Megan Montoya on 08-20-2024 Globulin (S) [Mass/Vol] 4.1 g/dL 2.2-4.2 [facility] Serum or plasma alanine hinojosa otransferase (ALT) measurementOrdered By: Megan Montoya on 08-20-2024 ALT [Catalytic activity/Vol] 18 U/L 13-56 [facility] Serum or plasma albumin reyna urement (mass/volume)Ordered By: Megan Montoya on 08-20-2024 Albumin [Mass/Vol] 2.7 g/dL Low 3.2-5.0 [facility] Serum or plasma alkaline silvia sphatase measurementOrdered By: Megan Montoya on 08-20-2024 ALP [Catalytic activity/Vol] 117 U/L 45-117 [facility] Serum or plasma calcium reyna urement (mass/volume)Ordered By: Megan Montoya on 08-20-2024 Calcium [Mass/Vol] 9.0 mg/dL 8.5-10.1 [facility] Serum or plasma creatinine m easurement (mass/volume)Ordered By: Megan Montoya on 08-20-2024 Creatinine [Mass/Vol] 0.98 mg/dL 0.55-1.02 [facility] Comment on above: The validity of the calculated GFR & GFRAA in patients over 70 years has not been determined. Clinical correlation is essential. Serum or plasma urea nitroge n measurement (mass/volume)Ordered By: Megan Montoya on 08-20-2024 Urea nitrogen [Mass/Vol] 11 mg/dL 7-18 [facility] Sodium levelOrdered By: Juan C Montoya on 08-20-2024 Sodium [Moles/Vol] 138 mmol/L 136-145 [facility] Total proteinOrdered By: Pola Montoya on 08-20-2024 Protein [Mass/Vol] 6.8 g/dL 6.4-8.2 [facility] White blood cell (WBC) count Ordered By: Megan Montoya on 08-20-2024 WBC (Bld) [#/Vol] 5.9 10*3/uL 4.4-11.0 [facility] [id number] 08-16-2024 [id number] Normal [facility] [id number] Normal [facility] [id number] MAR & Discharge med list transmitted to [facility] via Careport per TCC request. Electronically signed by JESSICA Leone Normal [facility] [id number] Normal [facility] Laboratory - Chemistry and C hemistry - challengeon 08-16-2024 Glucose [Mass/Vol] 120 mg/dL High 70 - 100 mg/dL [facility] No Panel Informationon 08-16 Interpretation and review of laboratory results Abnormal [facility] Performed by: [facility], [address] [place] [address] CLIA ID: [id number] [facility] Nursing Noteon 08-16-2024 Nursing Note Patient picked up fo r transfer to [facility] by stretcher. Report already called to GENET Garcia. Normal [facility] Nursing Note Telephone report erin led to GENET Garcia at [facility]. Normal [facility] Progress Noteon 08-16-2024 Progress Note Normal [facility] 30on 08-15-2024 30 Normal [facility] [id number] 08-15-2024 [id number] Authorization is pending with [employer]. Ref# [id number] to be DC'd to [facility]. Dtr Fidel Sharma. CM to follow. [facility] Progress Noteon 08-15-2024 Progress Note Normal [facility] 08-14-2024 30 Normal [facility] [id number] 08-14-2024 [id number] Normal [facility] Progress Noteon 08-14-2024 Progress Note Normal [facility] Progress Note Normal [facility] Progress Note Normal [facility] 30on 08-13-2024 30 Normal [facility] 30 Normal [facility] [id number] 08-13-2024 [id number] Normal [facility] Progress Noteon 08-13-2024 Progress Note Normal [facility] Progress Note Normal [facility] 30on 08-12-2024 30 Normal [facility] Progress Noteon 08-12-2024 Progress Note Normal [facility] 30on 08-11-2024 30 Normal [facility] 30 Normal [facility] [id number] 08-11-2024 [id number] CM noted DC orders i n place, Dgt touring facilities over the weekend. [facility] pending acceptance, updates sent via careport. Normal [facility] Progress Noteon 08-11-2024 Progress Note Normal [facility] 30on 08-10-2024 30 Normal [facility] [id number] 08-10-2024 [id number] Normal [facility] Progress Noteon 08-10-2024 Progress Note Normal [facility] [id number] 08-09-2024 [id number] Normal [facility] [id number] Normal [facility] [id number] Updated PT/OT notes placed to [facility] via Careport per [facility] request. Await review and response regarding ability to accept. TCC notified. Electronically signed by [facility] Aracelis Gardiner Normal [facility] [id number] Patient is medically ready for dc. PT/OT both continuing to recommend SNF. [facility] physical therapy manager asked to start auth. Plan to dc back to [facility] pending auth Normal [facility] Progress Noteon 08-09-2024 Progress Note Normal [facility] [id number] 08-08-2024 [id number] Normal [facility] Progress Noteon 08-08-2024 Progress Note Normal [facility] Progress Note Normal [facility] Progress Note [facility] 30on 08-07-2024 30 Normal [facility] 30 Normal [facility] 30 Normal [facility] [id number] 08-07-2024 [id number] Normal [facility] Progress Noteon 08-07-2024 Progress Note Normal [facility] 30on 08-06-2024 30 Normal [facility] 30 Normal [facility] [id number] 08-06-2024 [id number] Pt cont's on IV AtBs '. Plan is for pt to return to [facility]. Auth and HECTOR needed prior to DC. CM to follow. Normal [facility] [id number] Normal [facility] Comprehensive metabolic 1998 panelon 08-06-2024 Albumin [Mass/Vol] 2.4 g/dL Low 3.4 - 4.8 g/dL [facility] ALP [Catalytic activity/Vol] 72 U/L 40 - 150 U/L [facility] ALT [Catalytic activity/Vol] 24 U/L NINF - 30 U/L [facility] Anion gap [Moles/Vol] 7 mmol/L 3 - 13 mmol/L [facility] AST [Catalytic activity/Vol] 21 U/L NINF - 34 U/L [facility] Bilirubin [Mass/Vol] 0.9 mg/dL NINF - 1.2 mg/dL [facility] Calcium [Mass/Vol] 8.4 mg/dL Low 8.8 - 10. 0 mg/dL [facility] Chloride [Moles/Vol] 115 mmol/L High 98 - 10 7 mmol/L [facility] CO2 [Moles/Vol] 17 mmol/L Low 23 - 31 mmol/L [facility] Creatinine [Mass/Vol] 0.91 mg/dL 0.57 - 1.11 mg/dL [facility] GFR/1.73 sq M.predicted (S/P/Bld) [Vol rate/Area] 62.3 mL/min - PINF [facility] Comment on above: Calculation based on the Chronic Kidney Disease Epidemiology Collaboration (CKD-EPI) equation refit without adjustment for race Glucose [Mass/Vol] 92 mg/dL 82 - 115 mg/dL [facility] Interpretation and review of laboratory results Abnormal [facility] Potassium [Moles/Vol] 3.8 mmol/L 3.5 - 5.1 mmol/L [facility] Comment on above: Plasma potassium chris ues may be up to 0.5 mmol/L lower than serum values. Protein [Mass/Vol] 5.5 g/dL Low 6.4 - 8.3 g/dL [facility] Sodium [Moles/Vol] 139 mmol/L 136 - 145 mmol/L [facility] Urea nitrogen [Mass/Vol] 9 mg/dL 9 - 23 mg/dL [facility] Consulton 08-06-2024 Consult Normal [facility] Progress Noteon 08-06-2024 Progress Note Normal [facility] Progress Note Normal [facility] 30on 08-05-2024 30 Normal [facility] CBC W Auto Differential pane l (Bld)Ordered By: Frank Milligan on 08-05-2024 Basophils (Bld) [#/Vol] 0 10*3/uL 0.0 - 0.2 10*3/uL [facility] Basophils/100 WBC (Bld) 0.3 % 0.0 - 2.0 % [facility] Eosinophils (Bld) [#/Vol] 0.1 10*3/uL 0.0 - 0.5 10*3/uL [facility] Eosinophils/100 WBC (Bld) 1.6 % 0.0 - 6.0 % [facility] Erythrocyte distribution width (RBC) [Ratio] 18.9 % High 11.5 - 15.0 % [facility] Hematocrit (Bld) [Volume fraction] 33.3 % Low 35.0 - 47.0 % [facility] Hemoglobin (Bld) [Mass/Vol] 10.3 g/dL Low 11.7 - 16.0 g/dL [facility] Immature granulocytes (Bld) [#/Vol] 0.1 10*3/uL High NINF - 0.1 10*3/uL [facility] Immature granulocytes/100 WBC (Bld) 0.7 % 0.0 - 2.0 % [facility] Interpretation and review of laboratory results Abnormal [facility] Lymphocytes (Bld) [#/Vol] 1.1 10*3/uL 1.0 - 4.3 10*3/uL [facility] Lymphocytes/100 WBC (Bld) 15.6 % 15.0 - 45.0 % [facility] MCH (RBC) [Entitic mass] 26 pg 26.0 - 34.0 pg [facility] MCHC (RBC) [Mass/Vol] 30.9 % 30.5 - 36.0 % [facility] MCV (RBC) [Entitic vol] 84.1 fL 77.0 - 99.0 fL [facility] Monocytes (Bld) [#/Vol] 0.7 10*3/uL 0.0 - 0.9 10*3/uL [facility] Monocytes/100 WBC (Bld) 9.9 % 5.0 - 13.0 % [facility] Neutrophils (Bld) [#/Vol] 5.3 10*3/uL 1.8 - 7.5 10*3/uL [facility] Neutrophils/100 WBC (Bld) 71.9 % 38.0 - 82.0 % [facility] Nucleated RBC/100 WBC (Bld) [Ratio] 0 % [facility] Platelet mean volume (Bld) [Entitic vol] 9.2 fL 9.0 - 12.7 fL [facility] Platelets (Bld) [#/Vol] 235 10*3/uL 140 - 440 10*3/uL [facility] RBC (Bld) [#/Vol] 3.96 10*6/uL 3.80 - 5.2 0 10*6/uL [facility] WBC (Bld) [#/Vol] 7.3 10*3/uL 3.6 - 10.7 10*3/uL [facility] CBC W Auto Differential pane l (Bld)Ordered By: Aden Baires on 08-05-2024 Basophils (Bld) [#/Vol] 0 10*3/uL 0.0 - 0.2 10*3/uL [facility] Basophils/100 WBC (Bld) 0.3 % 0.0 - 2.0 % [facility] Eosinophils (Bld) [#/Vol] 0.1 10*3/uL 0.0 - 0.5 10*3/uL [facility] Eosinophils/100 WBC (Bld) 1.5 % 0.0 - 6.0 % [facility] Erythrocyte distribution width (RBC) [Ratio] 19.2 % High 11.5 - 15.0 % [facility] Hematocrit (Bld) [Volume fraction] 31.9 % Low 35.0 - 47.0 % [facility] Hemoglobin (Bld) [Mass/Vol] 9.9 g/dL Low 11.7 - 16.0 g/dL [facility] Immature granulocytes (Bld) [#/Vol] 0 10*3/uL NINF - 0.1 10*3/uL [facility] Immature granulocytes/100 WBC (Bld) 0.5 % 0.0 - 2.0 % [facility] Interpretation and review of laboratory results Abnormal [facility] Lymphocytes (Bld) [#/Vol] 1.1 10*3/uL 1.0 - 4.3 10*3/uL [facility] Lymphocytes/100 WBC (Bld) 16.6 % 15.0 - 45.0 % [facility] MCH (RBC) [Entitic mass] 26.2 pg 26.0 - 34.0 pg [facility] MCHC (RBC) [Mass/Vol] 31 % 30.5 - 36.0 % [facility] MCV (RBC) [Entitic vol] 84.4 fL 77.0 - 99.0 fL [facility] Monocytes (Bld) [#/Vol] 0.6 10*3/uL 0.0 - 0.9 10*3/uL [facility] Monocytes/100 WBC (Bld) 9.1 % 5.0 - 13.0 % [facility] Neutrophils (Bld) [#/Vol] 4.7 10*3/uL 1.8 - 7.5 10*3/uL [facility] Neutrophils/100 WBC (Bld) 72 % 38.0 - 82.0 % [facility] Nucleated RBC/100 WBC (Bld) [Ratio] 0 % [facility] Platelet mean volume (Bld) [Entitic vol] 10 fL 9.0 - 12.7 fL [facility] Platelets (Bld) [#/Vol] 242 10*3/uL 140 - 440 10*3/uL [facility] RBC (Bld) [#/Vol] 3.78 10*6/uL Low 3.80 - 5.2 0 10*6/uL [facility] WBC (Bld) [#/Vol] 6.5 10*3/uL 3.6 - 10.7 10*3/uL [facility] CBC WITH AUTO DIFFERENTIALon 08-05-2024 Basophils (Bld) [#/Vol] 0.0 10*3/uL Normal 0.0-0.2 [facility] Comment on above: Performed By: #### L [id number] ####Pre Press Operator: VELMA VALADEZ ([id number])[facility])[address] [place] [address] Basophils/100 WBC (Bld) 0.3 % Normal 0.0-2.0 [facility] Comment on above: Performed By: #### L [id number] ####Pre Press Operator: VELMA VALADEZ ([id number])[facility] ([facility])[address] [place] [address] Eosinophils (Bld) [#/Vol] 0.1 10*3/uL Normal 0.0-0.5 [facility] Comment on above: Performed By: #### L [id number] ####Pre Press Operator: VELMA VALADEZ ([id number])[facility] ([facility])[address] [place] [address] Eosinophils/100 WBC (Bld) 1.6 % Normal 0.0-6.0 [facility] Comment on above: Performed By: #### L [id number] ####Pre Press Operator: VELMA VALADEZ ([phone])[facility])[address] [place] [address] Erythrocyte distribution width (RBC) [Ratio] 18.9 % High 11.5-15.0 [facility] Comment on above: Performed By: #### L [id number] ####Pre Press Operator: VELMA VALADEZ ([id number])[facility] ([facility])[address] [place] [address] Hematocrit (Bld) [Volume fraction] 33.3 % Low 35.0-47.0 [facility] Comment on above: Performed By: #### L [id number] ####Pre Press Operator: VELMA VALADEZ ([id number])[facility])[address] [place] [address] Hemoglobin (Bld) [Mass/Vol] 10.3 g/dL Low 11.7-16.0 [facility] Comment on above: Performed By: #### L [id number] ####Pre Press Operator: VELMA VALADEZ ([phone])[facility])[address] [place] [address] IMMATURE GRANS % 0.7 % Normal 0.0-2.0 [facility] Comment on above: Performed By: #### L [id number] ####Pre Press Operator: VELMA VALADEZ ([id number])[facility])[address] [place] [address] IMMATURE GRANS ABSOLUTE 0.1 10*3/uL High <0.1 [facility] Comment on above: Performed By: #### L [id number] ####Pre Press Operator: VELMA VALADEZ ([id number])[facility])[address] [place] [address] Lymphocytes (Bld) [#/Vol] 1.1 10*3/uL Normal 1.0-4.3 [facility] Comment on above: Performed By: #### L [id number] ####Pre Press Operator: VELMA VALADEZ ([id number])[facility])[address] [place] [address] Lymphocytes/100 WBC (Bld) 15.6 % Normal 15.0-45.0 [facility] Comment on above: Performed By: #### L [id number] ####Pre Press Operator: VELMA VALADEZ ([id number])[facility])[address] [place] [address] MCH (RBC) [Entitic mass] 26.0 pg Normal 26.0-34.0 [facility] Comment on above: Performed By: #### L [id number] ####Pre Press Operator: VELMA VALADEZ ([phone])[facility])[address] [place] [address] MCHC 30.9 % Normal 30.5-36.0 [facility] Comment on above: Performed By: #### L [id number] ####Pre Press Operator: VELMA VALADEZ ([phone])[facility])[address] [place] [address] MCV (RBC) [Entitic vol] 84.1 fL Normal 77.0-99.0 [facility] Comment on above: Performed By: #### L [id number] ####Pre Press Operator: VELMA VALADEZ ([id number])[facility])[address] [place] [address] Monocytes (Bld) [#/Vol] 0.7 10*3/uL Normal 0.0-0.9 [facility] Comment on above: Performed By: #### L [id number] ####Pre Press Operator: VELMA VALADEZ ([phone])[facility])[address] [place] [address] Monocytes/100 WBC (Bld) 9.9 % Normal 5.0-13.0 [facility] Comment on above: Performed By: #### L [id number] ####Pre Press Operator: VELMA VALADEZ ([id number])[facility])[address] [place] [address] NEUTROPHILS ABSOLUTE 5.3 10*3/uL Normal 1.8-7.5 [facility] Comment on above: Performed By: #### L [id number] ####Pre Press Operator: VELMA VALADEZ ([id number])[facility])[address] [place] [address] Neutrophils/100 WBC (Bld) 71.9 % Normal 38.0-82.0 [facility] Comment on above: Performed By: #### L [id number] ####Pre Press Operator: VELMA VALADEZ ([id number])[facility] ([facility])[address] [place] [address] NRBC 0.0 /100 WBCs Normal 0.0-2.0 [facility] Comment on above: Performed By: #### L [id number] ####Pre Press Operator: VELMA VALADEZ ([id number])[facility] ([facility])[address] [place] [address] Platelet mean volume (Bld) [Entitic vol] 9.2 fL Normal 9.0-12.7 [facility] Comment on above: Performed By: #### L [id number] ####Pre Press Operator: VELMA VALADEZ ([id number])[facility])[address] [place] [address] Platelets (Bld) [#/Vol] 235 10*3/uL Normal 140-440 [facility] Comment on above: Performed By: #### L [id number] ####Pre Press Operator: VELMA VALADEZ ([id number])[facility])[address] [place] [address] RBC (Bld) [#/Vol] 3.96 10*6/uL Normal 3.80-5.20 [facility] Comment on above: Performed By: #### L [id number] ####Pre Press Operator: VELMA VALADEZ ([id number])[facility])[address] [place] [address] WBC (Bld) [#/Vol] 7.3 10*3/uL Normal 3.6-10.7 [facility] Comment on above: Performed By: #### L [id number] ####Pre Press Operator: VELMA VALADEZ ([id number])[facility])[address] [place] [address] Basophils (Bld) [#/Vol] 0.0 10*3/uL Normal 0.0-0.2 [facility] Comment on above: Performed By: #### L [id number] ####Pre Press Operator: VELMA VALADEZ ([id number])[facility])[address] [place] [address] Basophils/100 WBC (Bld) 0.3 % Normal 0.0-2.0 [facility] Comment on above: Performed By: #### L [id number] ####Pre Press Operator: VELMA VALADEZ ([id number])[facility])[address] [place] [address] Eosinophils (Bld) [#/Vol] 0.1 10*3/uL Normal 0.0-0.5 [facility] Comment on above: Performed By: #### L [id number] ####Pre Press Operator: VELMA VALADEZ ([id number])[facility])[address] [place] [address] Eosinophils/100 WBC (Bld) 1.5 % Normal 0.0-6.0 [facility] Comment on above: Performed By: #### L [id number] ####Pre Press Operator: VELMA VALADEZ ([id number])[facility])[address] [place] [address] Erythrocyte distribution width (RBC) [Ratio] 19.2 % High 11.5-15.0 [facility] Comment on above: Performed By: #### L [id number] ####Pre Press Operator: VELMA VALADEZ ([phone])[facility])[address] [place] [address] Hematocrit (Bld) [Volume fraction] 31.9 % Low 35.0-47.0 [facility] Comment on above: Performed By: #### L [id number] ####Pre Press Operator: VELMA VALADEZ ([id number])[facility])[address] [place] [address] Hemoglobin (Bld) [Mass/Vol] 9.9 g/dL Low 11.7-16.0 [facility] Comment on above: Performed By: #### L [id number] ####Pre Press Operator: VELMA VALADEZ ([id number])[facility])[address] [place] [address] IMMATURE GRANS % 0.5 % Normal 0.0-2.0 [facility] Comment on above: Performed By: #### L [id number] ####Pre Press Operator: VELMA AVLADEZ ([id number])[facility])[address] [place] [address] IMMATURE GRANS ABSOLUTE 0.0 10*3/uL Normal <0.1 [facility] Comment on above: Performed By: #### L [id number] ####Pre Press Operator: VELMA VALADEZ ([id number])[facility])[address] [place] [address] Lymphocytes (Bld) [#/Vol] 1.1 10*3/uL Normal 1.0-4.3 [facility] Comment on above: Performed By: #### L [id number] ####Pre Press Operator: VELMA VALADEZ ([id number])[facility])[address] [place] [address] Lymphocytes/100 WBC (Bld) 16.6 % Normal 15.0-45.0 [facility] Comment on above: Performed By: #### L [id number] ####Pre Press Operator: VELMA VALADEZ ([id number])[facility])[address] [place] [address] MCH (RBC) [Entitic mass] 26.2 pg Normal 26.0-34.0 [facility] Comment on above: Performed By: #### L [id number] ####Pre Press Operator: VELMA VALADEZ ([id number])[facility])[address] [place] [address] MCHC 31.0 % Normal 30.5-36.0 [facility] Comment on above: Performed By: #### L [id number] ####Pre Press Operator: VELMA VALADEZ ([id number])[facility])[address] [place] [address] MCV (RBC) [Entitic vol] 84.4 fL Normal 77.0-99.0 [facility] Comment on above: Performed By: #### L [id number] ####Pre Press Operator: VELMA VALADEZ ([phone])[facility])[address] [place] [address] Monocytes (Bld) [#/Vol] 0.6 10*3/uL Normal 0.0-0.9 [facility] Comment on above: Performed By: #### L [id number] ####Pre Press Operator: VELMA VALADEZ ([id number])[facility] ([facility])[address] [place] [address] Monocytes/100 WBC (Bld) 9.1 % Normal 5.0-13.0 [facility] Comment on above: Performed By: #### L [id number] ####Pre Press Operator: VEMLA VALADEZ ([id number])[facility])[address] [place] [address] NEUTROPHILS ABSOLUTE 4.7 10*3/uL Normal 1.8-7.5 [facility] Comment on above: Performed By: #### L [id number] ####Pre Press Operator: VELMA VALADEZ ([id number])[facility] ([facility])[address] [place] [address] Neutrophils/100 WBC (Bld) 72.0 % Normal 38.0-82.0 [facility] Comment on above: Performed By: #### L [id number] ####Pre Press Operator: VELMA VALADEZ ([id number])[facility])[address] [place] [address] NRBC 0.0 /100 WBCs Normal 0.0-2.0 [facility] Comment on above: Performed By: #### L [id number] ####Pre Press Operator: VELMA VALADEZ ([phone])[facility])[address] [place] [address] Platelet mean volume (Bld) [Entitic vol] 10.0 fL Normal 9.0-12.7 [facility] Comment on above: Performed By: #### L [id number] ####Pre Press Operator: VELMA VALADEZ ([id number])[facility] ([facility])[address] [place] [address] Platelets (Bld) [#/Vol] 242 10*3/uL Normal 140-440 [facility] Comment on above: Performed By: #### L [id number] ####Pre Press Operator: VELMA VALADEZ ([id number])[facility] ([facility])[address] [place] [address] RBC (Bld) [#/Vol] 3.78 10*6/uL Low 3.80-5.20 [facility] Comment on above: Performed By: #### L [id number] ####Pre Press Operator: VELMA VALADEZ ([id number])[facility] ([facility])[address] [place] [address] WBC (Bld) [#/Vol] 6.5 10*3/uL Normal 3.6-10.7 [facility] Comment on above: Performed By: #### L [id number] ####Pre Press Operator: VELMA VALADEZ ([id number])[facility] ([facility])[address] [place] [address] COMPREHENSIVE METABOLIC PANE Gilberto 08-05-2024 Albumin [Mass/Vol] 2.4 g/dL Low 3.4-4.8 [facility] Comment on above: Performed By: #### L [id number] ####Pre Press Operator: VELMA VALADEZ ([id number])[facility] ([facility])[address] [place] [address] ALP [Catalytic activity/Vol] 72 U/L Normal 40-150 [facility] Comment on above: Performed By: #### L [id number] ####Pre Press Operator: VELMA VALADEZ ([phone])[facility])[address] [place] [address] ALT [Catalytic activity/Vol] 24 U/L Normal <30 [facility] Comment on above: Performed By: #### L [id number] ####Pre Press Operator: VELMA VALADEZ ([phone])[facility])[address] [place] [address] Anion gap [Moles/Vol] 7 mmol/L Normal 3-13 [facility] Comment on above: Performed By: #### L [id number] ####Pre Press Operator: VELMA VALADEZ ([phone])[facility] ([facility])[address] [place] [address] AST [Catalytic activity/Vol] 21 U/L Normal <34 [facility] Comment on above: Performed By: #### L [id number] ####Pre Press Operator: VELMA VALADEZ ([id number])[facility] ([facility])[address] [place] [address] Bilirubin [Mass/Vol] 0.9 mg/dL Normal <1.2 [facility] Comment on above: Performed By: #### L [id number] ####Pre Press Operator: VELMA VALADEZ ([phone])[facility] ([facility])[address] [place] [address] Calcium [Mass/Vol] 8.4 mg/dL Low 8.8-10.0 [facility] Comment on above: Performed By: #### L [id number] ####Pre Press Operator: VELMA VALADEZ ([id number])[facility] ([facility])[address] [place] [address] Chloride [Moles/Vol] 115 mmol/L High 98-107 [facility] Comment on above: Performed By: #### L [id number] ####Pre Press Operator: VELMA VALADEZ ([id number])[facility] ([facility])[address] [place] [address] [place] CO2 [Moles/Vol] 17 mmol/L Low 23-31 [facility] Comment on above: Performed By: #### L [id number] ####Pre Press Operator: VELMA VALADEZ ([id number])[facility] ([facility])[address] [place] [address] Creatinine [Mass/Vol] 0.91 mg/dL Normal 0.57-1.11 [facility] Comment on above: Performed By: #### L [id number] ####Pre Press Operator: VELMA VALADEZ ([phone])[facility])[address] [place] [address] [place] GLOMERULAR FILTRATION RATE ML/MIN/1.73 SQ M.PREDICTED 62.3 mL/min/1.73m*2 Normal >60.0 [facility] Comment on above: Result Comment: Calc ulation based on the Chronic Kidney Disease Epidemiology Collaboration (CKD-EPI) equation refit without adjustment for race Performed By: #### L [id number] ####Pre Press Operator: VELMA VALADEZ ([id number])[facility] ([facility])[address] [place] [address] [place] Glucose [Mass/Vol] 92 mg/dL Normal 82-115 [facility] Comment on above: Performed By: #### L [id number] ####Pre Press Operator: VELMA VALADEZ ([id number])[facility])[address] [place] [address] Potassium [Moles/Vol] 3.8 mmol/L Normal 3.5-5.1 [facility] Comment on above: Result Comment: [facility] potassium values may be up to 0.5 mmol/L lower than serum values. Performed By: #### L [id number] ####Pre Press Operator: VELMA VALADEZ ([phone])[facility])[address] [place] [address] Protein [Mass/Vol] 5.5 g/dL Low 6.4-8.3 [facility] Comment on above: Performed By: #### L [id number] ####Pre Press Operator: VELMA VALADEZ ([phone])[facility])[address] [place] [address] [place] Sodium [Moles/Vol] 139 mmol/L Normal 136-145 [facility] Comment on above: Performed By: #### L [id number] ####Pre Press Operator: VELMA VALADEZ ([id number])[facility])[address] [place] [address] [place] Urea nitrogen [Mass/Vol] 9 mg/dL Normal 9-23 [facility] Comment on above: Performed By: #### L [id number] ####Pre Press Operator: VELMA VALADEZ ([id number])[facility] ([facility])[address] [place] [address] Albumin [Mass/Vol] 2.3 g/dL Low 3.4-4.8 [facility] Comment on above: Performed By: #### L [id number] ####Pre Press Operator: VELMA VALADEZ ([id number])[facility] ([facility])[address] [place] [address] ALP [Catalytic activity/Vol] 74 U/L Normal 40-150 [facility] Comment on above: Performed By: #### L [id number] ####Pre Press Operator: VELMA VALADEZ ([id number])[facility] ([facility])[address] [place] [address] ALT [Catalytic activity/Vol] 27 U/L Normal <30 [facility] Comment on above: Performed By: #### L [id number] ####Pre Press Operator: VELMA VALADEZ ([id number])[facility] ([facility])[address] [place] [address] Anion gap [Moles/Vol] 5 mmol/L Normal 3-13 [facility] Comment on above: Performed By: #### L [id number] ####Pre Press Operator: VELMA VALADEZ ([id number])[facility] ([facility])[address] [place] [address] AST [Catalytic activity/Vol] 24 U/L Normal <34 [facility] Comment on above: Performed By: #### L [id number] ####Pre Press Operator: VELMA VALADEZ ([id number])[facility] ([facility])[address] [place] [address] Bilirubin [Mass/Vol] 0.6 mg/dL Normal <1.2 [facility] Comment on above: Performed By: #### L [id number] ####Pre Press Operator: VELMA VALADEZ ([id number])[facility] ([facility])[address] [place] [address] Calcium [Mass/Vol] 8.1 mg/dL Low 8.8-10.0 [facility] Comment on above: Performed By: #### L [id number] ####Pre Press Operator: VELMA VALADEZ ([id number])[facility] ([facility])[address] [place] [address] Chloride [Moles/Vol] 108 mmol/L High 98-107 [facility] Comment on above: Performed By: #### L [id number] ####Pre Press Operator: VELMA VALADEZ ([id number])[facility])[address] [place] [address] CO2 [Moles/Vol] 21 mmol/L Low 23-31 [facility] Comment on above: Performed By: #### L [id number] ####Pre Press Operator: VELMA VALADEZ ([id number])[facility])[address] [place] [address] Creatinine [Mass/Vol] 0.89 mg/dL Normal 0.57-1.11 [facility] Comment on above: Performed By: #### L [id number] ####Pre Press Operator: VELMA VALADEZ ([id number])[facility] ([facility])[address] [place] [address] [place] GLOMERULAR FILTRATION RATE ML/MIN/1.73 SQ M.PREDICTED 64.0 mL/min/1.73m*2 Normal >60.0 [facility] Comment on above: Result Comment: Calc ulation based on the Chronic Kidney Disease Epidemiology Collaboration (CKD-EPI) equation refit without adjustment for race Performed By: #### L [id number] ####Pre Press Operator: VELMA VALADEZ ([id number])[facility])[address] [place] [address] [place] Glucose [Mass/Vol] 85 mg/dL Normal 82-115 [facility] Comment on above: Performed By: #### L [id number] ####Pre Press Operator: VELMA VALADEZ ([phone])[facility])[address] [place] [address] Potassium [Moles/Vol] 3.8 mmol/L Normal 3.5-5.1 [facility] Comment on above: Result Comment: [facility] potassium values may be up to 0.5 mmol/L lower than serum values. Performed By: #### L AB17 ####Pre Press Operator: VELMA VALADEZ ([phone])[facility])[address] [place] [address] Protein [Mass/Vol] 5.2 g/dL Low 6.4-8.3 [facility] Comment on above: Performed By: #### L [id number] ####Pre Press Operator: VELMA VALADEZ ([id number])[facility] ([facility])[address] [place] [address] Sodium [Moles/Vol] 134 mmol/L Low 136-145 [facility] Comment on above: Performed By: #### L [id number] ####Pre Press Operator: VELMA VALADEZ ([id number])[facility] ([facility])[address] [place] [address] Urea nitrogen [Mass/Vol] 13 mg/dL Normal 9-23 [facility] Comment on above: Performed By: #### L [id number] ####Pre Press Operator: VELMA VALADEZ ([phone])[facility])[address] [place] [address] Comprehensive metabolic 1998 panelon 08-05-2024 Albumin [Mass/Vol] 2.3 g/dL Low 3.4 - 4.8 g/dL [facility] ALP [Catalytic activity/Vol] 74 U/L 40 - 150 U/L [facility] ALT [Catalytic activity/Vol] 27 U/L NINF - 30 U/L [facility] Anion gap [Moles/Vol] 5 mmol/L 3 - 13 mmol/L [facility] AST [Catalytic activity/Vol] 24 U/L NINF - 34 U/L [facility] Bilirubin [Mass/Vol] 0.6 mg/dL NINF - 1.2 mg/dL [facility] Calcium [Mass/Vol] 8.1 mg/dL Low 8.8 - 10. 0 mg/dL [facility] Chloride [Moles/Vol] 108 mmol/L High 98 - 10 7 mmol/L [facility] CO2 [Moles/Vol] 21 mmol/L Low 23 - 31 mmol/L [facility] Creatinine [Mass/Vol] 0.89 mg/dL 0.57 - 1.11 mg/dL [facility] GFR/1.73 sq M.predicted (S/P/Bld) [Vol rate/Area] 64 mL/min - PINF [facility] Comment on above: Calculation based on the Chronic Kidney Disease Epidemiology Collaboration (CKD-EPI) equation refit without adjustment for race Glucose [Mass/Vol] 85 mg/dL 82 - 115 mg/dL [facility] Interpretation and review of laboratory results Abnormal [facility] Potassium [Moles/Vol] 3.8 mmol/L 3.5 - 5.1 mmol/L [facility] Comment on above: Plasma potassium chris ues may be up to 0.5 mmol/L lower than serum values. Protein [Mass/Vol] 5.2 g/dL Low 6.4 - 8.3 g/dL [facility] Sodium [Moles/Vol] 134 mmol/L Low 136 - 145 mmol/L [facility] Urea nitrogen [Mass/Vol] 13 mg/dL 9 - 23 mg/dL [facility] Progress Noteon 08-05-2024 Progress Note Normal [facility] Progress Note Normal [facility] 30on 08-04-2024 30 Normal [facility] 30 Normal [facility] CBC W Auto Differential pane l (Bld)Ordered By: Devika Eisenberg on 08-04-2024 Basophils (Bld) [#/Vol] 0 10*3/uL 0.0 - 0.2 10*3/uL [facility] Basophils/100 WBC (Bld) 0.2 % 0.0 - 2.0 % [facility] Eosinophils (Bld) [#/Vol] 0.1 10*3/uL 0.0 - 0.5 10*3/uL [facility] Eosinophils/100 WBC (Bld) 1.4 % 0.0 - 6.0 % [facility] Erythrocyte distribution width (RBC) [Ratio] 19.3 % High 11.5 - 15.0 % [facility] Hematocrit (Bld) [Volume fraction] 33 % Low 35.0 - 47.0 % [facility] Hemoglobin (Bld) [Mass/Vol] 10 g/dL Low 11.7 - 16.0 g/dL [facility] Immature granulocytes (Bld) [#/Vol] 0 10*3/uL NINF - 0.1 10*3/uL [facility] Immature granulocytes/100 WBC (Bld) 0.5 % 0.0 - 2.0 % [facility] Interpretation and review of laboratory results Abnormal [facility] Lymphocytes (Bld) [#/Vol] 1 10*3/uL 1.0 - 4.3 10*3/uL [facility] Lymphocytes/100 WBC (Bld) 17.7 % 15.0 - 45.0 % [facility] MCH (RBC) [Entitic mass] 25.8 pg Low 26.0 - 34.0 pg [facility] MCHC (RBC) [Mass/Vol] 30.3 % Low 30.5 - 36.0 % [facility] MCV (RBC) [Entitic vol] 85.1 fL 77.0 - 99.0 fL [facility] Monocytes (Bld) [#/Vol] 0.5 10*3/uL 0.0 - 0.9 10*3/uL [facility] Monocytes/100 WBC (Bld) 9.5 % 5.0 - 13.0 % [facility] Neutrophils (Bld) [#/Vol] 3.9 10*3/uL 1.8 - 7.5 10*3/uL [facility] Neutrophils/100 WBC (Bld) 70.7 % 38.0 - 82.0 % [facility] Nucleated RBC/100 WBC (Bld) [Ratio] 0 % [facility] Platelet mean volume (Bld) [Entitic vol] 9.8 fL 9.0 - 12.7 fL [facility] Platelets (Bld) [#/Vol] 280 10*3/uL 140 - 440 10*3/uL [facility] RBC (Bld) [#/Vol] 3.88 10*6/uL 3.80 - 5.2 0 10*6/uL [facility] WBC (Bld) [#/Vol] 5.6 10*3/uL 3.6 - 10.7 10*3/uL [facility] CBC WITH AUTO DIFFERENTIALon 08-04-2024 Basophils (Bld) [#/Vol] 0.0 10*3/uL Normal 0.0-0.2 [facility] Comment on above: Performed By: #### L [id number] ####Pre Press Operator: VELMA VALADEZ ([id number])[facility] ([facility])[address] [place] [address] Basophils/100 WBC (Bld) 0.2 % Normal 0.0-2.0 [facility] Comment on above: Performed By: #### L [id number] ####Pre Press Operator: VELMA VALADEZ ([id number])[facility] ([facility])[address] [place] [address] Eosinophils (Bld) [#/Vol] 0.1 10*3/uL Normal 0.0-0.5 [facility] Comment on above: Performed By: #### L [id number] ####Pre Press Operator: VELMA VALADEZ ([phone])[facility])[address] [place] [address] Eosinophils/100 WBC (Bld) 1.4 % Normal 0.0-6.0 [facility] Comment on above: Performed By: #### L [id number] ####Pre Press Operator: VELMA VALADEZ ([phone])[facility])[address] [place] [address] Erythrocyte distribution width (RBC) [Ratio] 19.3 % High 11.5-15.0 [facility] Comment on above: Performed By: #### L [id number] ####Pre Press Operator: VELMA VALADEZ ([phone])[facility])[address] [place] [address] Hematocrit (Bld) [Volume fraction] 33.0 % Low 35.0-47.0 [facility] Comment on above: Performed By: #### L [id number] ####Pre Press Operator: VELMA VALADEZ ([phone])[facility])[address] [place] [address] Hemoglobin (Bld) [Mass/Vol] 10.0 g/dL Low 11.7-16.0 [facility] Comment on above: Performed By: #### L [id number] ####Pre Press Operator: VELMA VALADEZ ([id number])[facility])[address] [place] [address] IMMATURE GRANS % 0.5 % Normal 0.0-2.0 [facility] Comment on above: Performed By: #### L [id number] ####Pre Press Operator: VELMA VALADEZ ([phone])[facility])[address] [place] [address] IMMATURE GRANS ABSOLUTE 0.0 10*3/uL Normal <0.1 [facility] Comment on above: Performed By: #### L [id number] ####Pre Press Operator: VELMA VALADEZ ([phone])[facility])[address] [place] [address] Lymphocytes (Bld) [#/Vol] 1.0 10*3/uL Normal 1.0-4.3 [facility] Comment on above: Performed By: #### L [id number] ####Pre Press Operator: VELMA VALADEZ ([phone])[facility])[address] [place] [address] Lymphocytes/100 WBC (Bld) 17.7 % Normal 15.0-45.0 [facility] Comment on above: Performed By: #### L [id number] ####Pre Press Operator: VELMA VALADEZ ([phone])[facility])[address] [place] [address] MCH (RBC) [Entitic mass] 25.8 pg Low 26.0-34.0 [facility] Comment on above: Performed By: #### L [id number] ####Pre Press Operator: VELMA VALADEZ ([phone])[facility])[address] [place] [address] MCHC 30.3 % Low 30.5-36.0 [facility] Comment on above: Performed By: #### L [id number] ####Pre Press Operator: VELMA VALADEZ ([phone])[facility])[address] [place] [address] MCV (RBC) [Entitic vol] 85.1 fL Normal 77.0-99.0 [facility] Comment on above: Performed By: #### L [id number] ####Pre Press Operator: VELMA VALADEZ ([phone])[facility])[address] [place] [address] Monocytes (Bld) [#/Vol] 0.5 10*3/uL Normal 0.0-0.9 [facility] Comment on above: Performed By: #### L [id number] ####Pre Press Operator: VELMA VALADEZ ([id number])[facility] ([facility])[address] [place] [address] Monocytes/100 WBC (Bld) 9.5 % Normal 5.0-13.0 [facility] Comment on above: Performed By: #### L [id number] ####Pre Press Operator: VELMA VALADEZ ([phone])[facility])[address] [place] [address] NEUTROPHILS ABSOLUTE 3.9 10*3/uL Normal 1.8-7.5 [facility] Comment on above: Performed By: #### L [id number] ####Pre Press Operator: VELMA VALADEZ ([phone])[facility] ([facility])[address] [place] [address] Neutrophils/100 WBC (Bld) 70.7 % Normal 38.0-82.0 [facility] Comment on above: Performed By: #### L [id number] ####Pre Press Operator: VELMA VALADEZ ([phone])[facility])[address] [place] [address] NRBC 0.0 /100 WBCs Normal 0.0-2.0 [facility] Comment on above: Performed By: #### L [id number] ####Pre Press Operator: VELMA VALADEZ ([phone])[facility])[address] [place] [address] Platelet mean volume (Bld) [Entitic vol] 9.8 fL Normal 9.0-12.7 [facility] Comment on above: Performed By: #### L [id number] ####Pre Press Operator: VELMA VALADEZ ([id number])[facility] ([facility])[address] [place] [address] Platelets (Bld) [#/Vol] 280 10*3/uL Normal 140-440 [facility] Comment on above: Performed By: #### L [id number] ####Pre Press Operator: VELMA VALADEZ ([id number])[facility] ([facility])[address] [place] [address] RBC (Bld) [#/Vol] 3.88 10*6/uL Normal 3.80-5.20 [facility] Comment on above: Performed By: #### L [id number] ####Pre Press Operator: VELMA VALADEZ ([phone])[facility])[address] [place] [address] WBC (Bld) [#/Vol] 5.6 10*3/uL Normal 3.6-10.7 [facility] Comment on above: Performed By: #### L [id number] ####Pre Press Operator: VELMA VALADEZ ([phone])[facility] ([facility])[address] [place] [address] COMPREHENSIVE METABOLIC PANE Gilberto 08-04-2024 Albumin [Mass/Vol] 2.3 g/dL Low 3.4-4.8 [facility] Comment on above: Performed By: #### L [id number] ####Pre Press Operator: VELMA VALADEZ ([id number])[facility] ([facility])[address] [place] [address] ALP [Catalytic activity/Vol] 68 U/L Normal 40-150 [facility] Comment on above: Performed By: #### L [id number] ####Pre Press Operator: VELMA VALADEZ ([id number])[facility])[address] [place] [address] ALT [Catalytic activity/Vol] 26 U/L Normal <30 [facility] Comment on above: Performed By: #### L [id number] ####Pre Press Operator: VELMA VALADEZ ([phone])[facility])[address] [place] [address] Anion gap [Moles/Vol] 6 mmol/L Normal 3-13 [facility] Comment on above: Performed By: #### L [id number] ####Pre Press Operator: VELAM VALADEZ ([id number])[facility] ([facility])[address] [place] [address] AST [Catalytic activity/Vol] 25 U/L Normal <34 [facility] Comment on above: Performed By: #### L [id number] ####Pre Press Operator: VELMA VALADEZ ([phone])[facility] ([facility])[address] [place] [address] Bilirubin [Mass/Vol] 0.5 mg/dL Normal <1.2 [facility] Comment on above: Performed By: #### L [id number] ####Pre Press Operator: VELMA VALADEZ ([phone])[facility] ([facility])[address] [place] [address] Calcium [Mass/Vol] 8.2 mg/dL Low 8.8-10.0 [facility] Comment on above: Performed By: #### L [id number] ####Pre Press Operator: VELMA VALADEZ ([phone])[facility] ([facility])[address] [place] [address] Chloride [Moles/Vol] 112 mmol/L High 98-107 [facility] Comment on above: Performed By: #### L [id number] ####Pre Press Operator: VELMA VALADEZ ([phone])[facility] ([facility])[address] [place] [address] CO2 [Moles/Vol] 21 mmol/L Low 23-31 [facility] Comment on above: Performed By: #### L [id number] ####Pre Press Operator: VELMA VALADEZ ([phone])[facility] ([facility])[address] [place] [address] Creatinine [Mass/Vol] 1.13 mg/dL High 0.57-1.11 [facility] Comment on above: Performed By: #### L [id number] ####Pre Press Operator: VELMA VALADEZ ([phone])[facility])[address] [place] [address] [place] GLOMERULAR FILTRATION RATE ML/MIN/1.73 SQ M.PREDICTED 48.1 mL/min/1.73m*2 Low >60.0 [facility] Comment on above: Result Comment: Calc ulation based on the Chronic Kidney Disease Epidemiology Collaboration (CKD-EPI) equation refit without adjustment for race Performed By: #### L AB17 ####Pre Press Operator: VELMA VALADEZ ([phone])[facility] ([facility])[address] [place] [address] [place] Glucose [Mass/Vol] 153 mg/dL High 82-115 [facility] Comment on above: Performed By: #### L AB17 ####Pre Press Operator: VELMA VALADEZ ([phone])[facility])[address] [place] [address] Potassium [Moles/Vol] 3.9 mmol/L Normal 3.5-5.1 [facility] Comment on above: Result Comment: [facility] potassium values may be up to 0.5 mmol/L lower than serum values. Performed By: #### L AB17 ####Pre Press Operator: VELMA VALADEZ ([phone])[facility])[address] [place] [address] [place] Protein [Mass/Vol] 5.2 g/dL Low 6.4-8.3 [facility] Comment on above: Performed By: #### L AB17 ####Pre Press Operator: VELMA VALADEZ ([phone])[facility])[address] [place] [address] [place] Sodium [Moles/Vol] 139 mmol/L Normal 136-145 [facility] Comment on above: Performed By: #### L AB17 ####Pre Press Operator: VELMA VALADEZ ([phone])[facility])[address] [place] [address] [place] Urea nitrogen [Mass/Vol] 26 mg/dL High 9-23 [facility] Comment on above: Performed By: #### L AB17 ####Pre Press Operator: VELMA VALADEZ ([phone])[facility] ([facility] Comprehensive metabolic 1998 panelon 08-04-2024 Albumin [Mass/Vol] 2.3 g/dL Low 3.4 - 4.8 g/dL [facility] ALP [Catalytic activity/Vol] 68 U/L 40 - 150 U/L [facility] ALT [Catalytic activity/Vol] 26 U/L NINF - 30 U/L [facility] Anion gap [Moles/Vol] 6 mmol/L 3 - 13 mmol/L [facility] AST [Catalytic activity/Vol] 25 U/L NINF - 34 U/L [facility] Bilirubin [Mass/Vol] 0.5 mg/dL NINF - 1.2 mg/dL [facility] Calcium [Mass/Vol] 8.2 mg/dL Low 8.8 - 10. 0 mg/dL [facility] Chloride [Moles/Vol] 112 mmol/L High 98 - 10 7 mmol/L [facility] CO2 [Moles/Vol] 21 mmol/L Low 23 - 31 mmol/L [facility] Creatinine [Mass/Vol] 1.13 mg/dL High 0.57 - 1.11 mg/dL [facility] GFR/1.73 sq M.predicted (S/P/Bld) [Vol rate/Area] 48.1 mL/min Low - PINF [facility] Comment on above: Calculation based on the Chronic Kidney Disease Epidemiology Collaboration (CKD-EPI) equation refit without adjustment for race Glucose [Mass/Vol] 153 mg/dL High 82 - 115 mg/dL [facility] Interpretation and review of laboratory results Abnormal [facility] Potassium [Moles/Vol] 3.9 mmol/L 3.5 - 5.1 mmol/L [facility] Comment on above: Plasma potassium chris ues may be up to 0.5 mmol/L lower than serum values. Protein [Mass/Vol] 5.2 g/dL Low 6.4 - 8.3 g/dL [facility] Sodium [Moles/Vol] 139 mmol/L 136 - 145 mmol/L [facility] Urea nitrogen [Mass/Vol] 26 mg/dL High 9 - 23 mg/dL [facility] Nursing Noteon 08-04-2024 Nursing Note Bedside swallow completed. Pt passed and tolerated well tolerated well. Normal [facility] Progress Noteon 08-04-2024 Progress Note Normal [facility] 30on 08-03-2024 30 Normal [facility] 30 Normal [facility] 30 Normal [facility] [id number] 08-03-2024 [id number] Normal [facility] BASIC METABOLIC PANELon 07-18 Anion gap [Moles/Vol] 6 mmol/L Normal 3-13 [facility] Comment on above: Performed By: #### L AB15 ####Pre Press Operator: VELMA VALADEZ ([phone])[facility] ([facility])[address] [place] [address] Calcium [Mass/Vol] 8.5 mg/dL Low 8.8-10.0 [facility] Comment on above: Performed By: #### L AB15 ####Pre Press Operator: VELMA VALADEZ ([phone])[facility] ([facility])[address] [place] [address] Chloride [Moles/Vol] 105 mmol/L Normal 98-107 [facility] Comment on above: Performed By: #### L AB15 ####Pre Press Operator: VELMA VALADEZ ([phone])[facility] ([facility])[address] [place] [address] CO2 [Moles/Vol] 27 mmol/L Normal 23-31 [facility] Comment on above: Performed By: #### L AB15 ####Pre Press Operator: VELMA VALADEZ ([phone])[facility] ([facility])[address] [place] [address] Creatinine [Mass/Vol] 1.18 mg/dL High 0.57-1.11 [facility] Comment on above: Performed By: #### L AB15 ####Pre Press Operator: VELMA VALADEZ ([phone])[facility] ([facility])[address] [place] [address] GLOMERULAR FILTRATION RATE ML/MIN/1.73 SQ M.PREDICTED 45.6 mL/min/1.73m*2 Low >60.0 [facility] Comment on above: Result Comment: Calc ulation based on the Chronic Kidney Disease Epidemiology Collaboration (CKD-EPI) equation refit without adjustment for race Performed By: #### L AB15 ####Pre Press Operator: VELMA VALADEZ ([phone])[facility] ([facility])[address] [place] [address] Glucose [Mass/Vol] 100 mg/dL Normal 82-115 [facility] Comment on above: Performed By: #### L AB15 ####Pre Press Operator: VELMA VALADEZ ([phone])[facility])[address] [place] [address] Potassium [Moles/Vol] 4.7 mmol/L Normal 3.5-5.1 [facility] Comment on above: Result Comment: [facility] potassium values may be up to 0.5 mmol/L lower than serum values. Performed By: #### L AB15 ####Pre Press Operator: VELMA VALADEZ ([phone])[facility] ([facility])[address] [place] [address] Sodium [Moles/Vol] 138 mmol/L Normal 136-145 [facility] Comment on above: Performed By: #### L AB15 ####Pre Press Operator: VELMA VALADEZ ([phone])[facility])[address] [place] [address] Urea nitrogen [Mass/Vol] 33 mg/dL High 9-23 [facility] Comment on above: Performed By: #### L AB15 ####Pre Press Operator: VELMA VALADEZ ([phone])[facility])[address] [place] [address] Basic metabolic 1998 panelOr dered By: Juni Millard on 08-03-2024 Anion gap [Moles/Vol] 6 mmol/L 3 - 13 mmol/L [facility] Calcium [Mass/Vol] 8.5 mg/dL Low 8.8 - 10. 0 mg/dL [facility] Chloride [Moles/Vol] 105 mmol/L 98 - 10 7 mmol/L [facility] CO2 [Moles/Vol] 27 mmol/L 23 - 31 mmol/L [facility] Creatinine [Mass/Vol] 1.18 mg/dL High 0.57 - 1.11 mg/dL [facility] GFR/1.73 sq M.predicted (S/P/Bld) [Vol rate/Area] 45.6 mL/min Low - PINF [facility] Comment on above: Calculation based on the Chronic Kidney Disease Epidemiology Collaboration (CKD-EPI) equation refit without adjustment for race Glucose [Mass/Vol] 100 mg/dL 82 - 115 mg/dL [facility] Interpretation and review of laboratory results Abnormal [facility] Potassium [Moles/Vol] 4.7 mmol/L 3.5 - 5.1 mmol/L [facility] Comment on above: Plasma potassium chris ues may be up to 0.5 mmol/L lower than serum values. Sodium [Moles/Vol] 138 mmol/L 136 - 145 mmol/L [facility] Urea nitrogen [Mass/Vol] 33 mg/dL High 9 - 23 mg/dL [facility] CBC W Auto Differential pane l (Bld)Ordered By: Christin Mayes on 08-03-2024 Erythrocyte distribution width (RBC) [Ratio] 19.4 % High 11.5 - 15.0 % [facility] Hematocrit (Bld) [Volume fraction] 38.7 % 35.0 - 47.0 % [facility] Hemoglobin (Bld) [Mass/Vol] 12.1 g/dL 11.7 - 16.0 g/dL [facility] MCH (RBC) [Entitic mass] 26 pg 26.0 - 34.0 pg [facility] MCHC (RBC) [Mass/Vol] 31.3 % 30.5 - 36.0 % [facility] MCV (RBC) [Entitic vol] 83.2 fL 77.0 - 99.0 fL [facility] Nucleated RBC/100 WBC (Bld) [Ratio] 0 % [facility] Platelet mean volume (Bld) [Entitic vol] 9.8 fL 9.0 - 12.7 fL [facility] Comment on above: MPV is a calculated measurement using platelet volume ratio Platelets (Bld) [#/Vol] 303 10*3/uL 140 - 440 10*3/uL [facility] RBC (Bld) [#/Vol] 4.65 10*6/uL 3.80 - 5.2 0 10*6/uL [facility] WBC (Bld) [#/Vol] 9.1 10*3/uL 3.6 - 10.7 10*3/uL [facility] CBC WITH AUTO DIFFERENTIALon 08-03-2024 Erythrocyte distribution width (RBC) [Ratio] 19.4 % High 11.5-15.0 [facility] Comment on above: Performed By: #### L [id number], [id number] ####Pre Press Operator: VELMA VALADEZ ([phone])[facility] ([facility])[address] [place] [address] Hematocrit (Bld) [Volume fraction] 38.7 % Normal 35.0-47.0 [facility] Comment on above: Performed By: #### [place] [id number], [id number] ####Pre Press Operator: VELMA VALADEZ ([phone])[facility]ITAL[facility] ([facility])[address] [place] [address] Hemoglobin (Bld) [Mass/Vol] 12.1 g/dL Normal 11.7-16.0 [facility] Comment on above: Performed By: #### [place] [id number], [id number] ####Pre Press Operator: VELMA VALADEZ ([phone])[facility]ITAL[facility] ([facility])[address] [place] [address] MCH (RBC) [Entitic mass] 26.0 pg Normal 26.0-34.0 [facility] Comment on above: Performed By: #### L [id number], [id number] ####Pre Press Operator: VELMA VALADEZ ([phone])[facility]ITAL[facility] ([facility])[address] [place] [address] MCHC 31.3 % Normal 30.5-36.0 [facility] Comment on above: Performed By: #### L OQ5904, [id number] ####Pre Press Operator: VELMA VALADEZ ([phone])[facility]ITAL[facility] ([facility])[address] [place] [address] [place] MCV (RBC) [Entitic vol] 83.2 fL Normal 77.0-99.0 [facility] Comment on above: Performed By: #### L [id number], [id number] ####Pre Press Operator: VELMA VALADEZ ([phone])[facility] ([facility])[address] [place] [address] NRBC 0.0 /100 WBCs Normal 0.0-2.0 [facility] Comment on above: Performed By: #### L [id number], [id number] ####Pre Press Operator: VELMA VALADEZ ([phone])[facility]ITAL[facility] ([facility])[address] [place] [address] Platelet mean volume (Bld) [Entitic vol] 9.8 fL Normal 9.0-12.7 [facility] Comment on above: Result Comment: MPV is a calculated measurement using platelet volume ratio Performed By: #### L [id number], [id number] ####Pre Press Operator: VELMA VALADEZ ([phone])[facility]ITAL[facility] ([facility])[address] [place] [address] [place] Platelets (Bld) [#/Vol] 303 10*3/uL Normal 140-440 [facility] Comment on above: Performed By: #### L WN5695, [id number] ####Pre Press Operator: VELMA VALADEZ ([phone])[facility]ITAL[facility] ([facility])[address] [place] [address] RBC (Bld) [#/Vol] 4.65 10*6/uL Normal 3.80-5.20 [facility] Comment on above: Performed By: #### L [id number], [id number] ####Pre Press Operator: VELMA VALADEZ ([phone])[facility]ITAL[facility] ([facility])[address] [place] [address] WBC (Bld) [#/Vol] 9.1 10*3/uL Normal 3.6-10.7 [facility] Comment on above: Performed By: #### L OR3707, [id number] ####Pre Press Operator: VELMA VALADEZ ([id number])[facility]ITAL[facility] ([facility])[address] COMPREHENSIVE METABOLIC PANE Gilberto 08-03-2024 Albumin [Mass/Vol] 2.8 g/dL Low 3.4-4.8 [facility] Comment on above: Performed By: #### [place] AB17, [id number], LAB99 ####Pre Press Operator: VELMA VALADEZ ([phone])[facility]ITAL[facility] ([facility])[address] ALP [Catalytic activity/Vol] 82 U/L Normal 40-150 [facility] Comment on above: Performed By: #### [place] AB17, [id number], LAB99 ####Pre Press Operator: VELMA VALADEZ ([phone])[facility]ITAL[facility] SANCHEZROSANGELA [facility]TM[facility] ([facility])[address] ALT [Catalytic activity/Vol] 26 U/L Normal <30 [facility] Comment on above: Performed By: #### [place] AB17, BEJ457, LAB99 ####Pre Press Operator: VELMA VALADEZ ([phone])[facility]ITAL[facility] ([facility])[address] Anion gap [Moles/Vol] 9 mmol/L Normal 3-13 [facility] Comment on above: Performed By: #### L AB17, ZJM640, LAB99 ####Pre Press Operator: VELMA VALADEZ ([phone])[facility]ITAL[facility] S[facility]HEZROSANGELA [facility]TM[facility] ([facility])[address] AST [Catalytic activity/Vol] 36 U/L High <34 [facility] Comment on above: Result Comment: TCSi gnificant interference from hemolysis. Result integrity compromised. Interpret with caution. Performed By: #### L AB17, FSV205, LAB99 ####Pre Press Operator: VELMA VALADEZ ([id number])[facility] ROSANGELA RITTMAN ([facility])[address] [place] [address] [place] Bilirubin [Mass/Vol] 0.7 mg/dL Normal <1.2 [facility] Comment on above: Performed By: #### L AB17, ZVF360, LAB99 ####Pre Press Operator: VELMA VALADEZ ([phone])[facility]ITAL[facility] ([facility])[address] [place] [address] [place] Calcium [Mass/Vol] 9.0 mg/dL Normal 8.8-10.0 [facility] Comment on above: Performed By: #### [place] AB17, CAF727, LAB99 ####Pre Press Operator: VELMA VALADEZ ([phone])[facility] ([facility])[address] [place] [address] [place] Chloride [Moles/Vol] 109 mmol/L High 98-107 [facility] Comment on above: Performed By: #### [place] AB17, TVB687, LAB99 ####Pre Press Operator: VELMA VALADEZ ([phone])[facility]ITAL[facility] SANCHEZROSANGELA RITTM[facility] ([facility])[address] [place] [address] [place] CO2 [Moles/Vol] 21 mmol/L Low 23-31 [facility] Comment on above: Performed By: #### L AB17, UAS337, LAB99 ####Pre Press Operator: VELMA VALADEZ ([phone])[facility]ITAL[facility] SANCHEZROSANGELA RITTMAN ([facility])[address] [place] [address] [place] Creatinine [Mass/Vol] 1.30 mg/dL High 0.57-1.11 [facility] Comment on above: Performed By: #### L AB17, [id number], LAB99 ####Pre Press Operator: VELMA VALADEZ ([id number])[facility]ITAL[facility] ([facility])[address] [place] [address] [place] GLOMERULAR FILTRATION RATE ML/MIN/1.73 SQ M.PREDICTED 40.6 mL/min/1.73m*2 Low >60.0 [facility] Comment on above: Result Comment: Calc ulation based on the Chronic Kidney Disease Epidemiology Collaboration (CKD-EPI) equation refit without adjustment for race Performed By: #### L AB17, DCK221, LAB99 ####Pre Press Operator: VELMA VALADEZ ([phone])[facility]ITAL[facility] ([facility])[address] [place] [address] [place] Glucose [Mass/Vol] 103 mg/dL Normal 82-115 [facility] Comment on above: Performed By: #### [place] AB17, GGD688, LAB99 ####Pre Press Operator: VELMA VALADEZ ([phone])[facility]ITAL[facility] ([facility])[address] [place] [address] [place] Potassium [Moles/Vol] 5.9 mmol/L High 3.5-5.1 [facility] Comment on above: Result Comment: TCSi gnificant interference from hemolysis. Result integrity compromised. Interpret with caution. Performed By: #### [place] REIS17, EGI100, LAB99 ####Pre Press Operator: VELMA VALADEZ ([phone])[facility]ITAL[facility] ([facility])[address] [place] [address] [place] Protein [Mass/Vol] 6.7 g/dL Normal 6.4-8.3 [facility] Comment on above: Result Comment: TCPo tential interference from hemolysis Performed By: #### [place] REIS17, [id number], LAB99 ####Pre Press Operator: VELMA VALADEZ ([phone])[facility]ITAL[facility] ([facility])[address] [place] [address] [place] Sodium [Moles/Vol] 139 mmol/L Normal 136-145 [facility] Comment on above: Performed By: #### [place] AB17, PSJ800, LAB99 ####Pre Press Operator: VELMA VALADEZ ([phone])[facility]ITAL[facility] ([facility])[address] [place] [address] [place] Urea nitrogen [Mass/Vol] 34 mg/dL High 9-23 [facility] Comment on above: Performed By: #### L AB17, AEH079, LAB99 ####Pre Press Operator: VELMA VALADEZ ([id number])[facility] ([facility])[address] [place] [address] CT ABDOMEN PELVIS WO IV CONT RASTon 08-03-2024 CT ABDOMEN PELVIS WO IV CONTRAST Normal [facility] CT Abdomen and Pelvis WO con traston 08-03-2024 1. Extensive colonic diverticulosis without evidence of diverticulitis 2. Consolidation in the medial left lower lobe, possibly pneumonia 3. No bowel dilatation Report Dictated on Electronically Signed By: Ming Fry MD Electronically Signed Date/Time: 08/03/2024 4:05 AM [facility] Patient Name: MEL CARVER RD [facility] 1940 [id number] Exam Date/Time: 08/03/2024 03:05 Procedure: CT ABDOMEN [...] Lymph nodes: Unremarkable. No enlarged lymph nodes. [facility] Ming Fry MD - 08/03/2024 Patient Name: [facility]EL POP : 1940 [id number] Exam Date/Time: 08/03/2024 03:05 Procedure: CT ABDOMEN [...] Electronically Signed Date/Time: 08/03/2024 4:05 AM EST [facility] Radiology Study observation (narrative) [facility] CT Abdomen and Pelvis WO con trastOrdered By: Ming Fry on 08-03-2024 [facility] Work Phone: Comprehensive metabolic 1998 panelon 08-03-2024 Albumin [Mass/Vol] 2.8 g/dL Low 3.4 - 4.8 g/dL [facility] ALP [Catalytic activity/Vol] 82 U/L 40 - 150 U/L [facility] ALT [Catalytic activity/Vol] 26 U/[facility]L [facility] Anion gap [Moles/Vol] 9 mmol/L 3 - 13 mmol/L [facility] AST [Catalytic activity/Vol] 36 U/L High [facility] - [facility] U/L [facility] Comment on above: TC Significant interference from hemolysis. Result integrity compromised. Interpret with caution. Bilirubin [Mass/Vol] 0.7 mg/dL NINF - 1.2 mg/dL [facility] Calcium [Mass/Vol] 9 mg/dL 8.8 - 10. 0 mg/dL [facility] Chloride [Moles/Vol] 109 mmol/L High 98 - 10 7 mmol/L [facility] CO2 [Moles/Vol] 21 mmol/L Low 23 - 31 mmol/L [facility] Creatinine [Mass/Vol] 1.3 mg/dL High 0.57 - 1.11 mg/dL [facility] GFR/1.73 sq M.predicted (S/P/Bld) [Vol rate/Area] 40.6 mL/min Low - PINF [facility] Comment on above: Calculation based on the Chronic Kidney Disease Epidemiology Collaboration (CKD-EPI) equation refit without adjustment for race Glucose [Mass/Vol] 103 mg/dL 82 - 115 mg/dL [facility] Interpretation and review of laboratory results Abnormal [facility] Potassium [Moles/Vol] 5.9 mmol/L High 3.5 - 5.1 mmol/L [facility] Comment on above: TC Significant interference from hemolysis. Result integrity compromised. Interpret with caution. Protein [Mass/Vol] 6.7 g/dL 6.4 - 8.3 g/dL [facility] Comment on above: TC Potential interference from hemolysis Sodium [Moles/Vol] 139 mmol/L 136 - 145 mmol/L [facility] Urea nitrogen [Mass/Vol] 34 mg/dL High 9 - 23 mg/dL [facility] ED Nursing Noteon 08-03-2024 ED Nursing Note Pt placed in roundtrip Normal [facility] ED Nursing Note ED CT and ED xray notified that patient is ready Normal [facility] ED Provider Noteon ED Provider Note Normal [facility] GASTROINTESTINAL PCR PANELon 08-03-2024 GASTROINTESTINAL PCR PANEL Normal [facility] Comment on above: Performed By: #### L [id number] ####Pre Press Operator: VELMA VALADEZ ([phone])[facility] ([address] Gastrointestinal pathogens p masoud OXANA+probe (Stl)Ordered By: Maximus Dimas on 08-03-2024 Adenovirus F 40/41 Not detected Not Detected [facility] Astrovirus Not detected Not Detected [facility] Campylobacter Not detected Not Detected [facility] Cryptosporidium Not detected Not Detected [facility] Cyclospora cayetanensis Not detected Not Detected [facility] Entamoeba histolytica Not detected Not Detected [facility] Enterotoxigenic E coli (ETEC) Not detected Not Detected [facility] Giardia lamblia Not detected Not Detected [facility] Interpretation and review of laboratory results Abnormal [facility] Norovirus GI/GII Detected Abnormal Not Detected [facility] Plesiomonas shigelloides Not detected Not Detected [facility] Rotavirus A Not detected Not Detected [facility] Salmonella Not detected Not Detected [facility] Sapovirus Not detected Not Detected [facility] Shiga toxin-producing E coli (STEC) Not detected Not Detected [facility] Shigella/Enteroinvasive E coli (EIEC) Not detected Not Detected [facility] Vibrio cholerae Not detected Not Detected [facility] Vibrio species Not detected Not Detected [facility] Yersinia enterocolitica Not detected Not Detected [facility] A positive Norovirus result on the Film Array GI panel should be interpreted in the context of the patient's history and clinical picture. If results are not consistent, result should be confirmed with a Norovirus specific assay. Methodology: Multiplex PCR [facility] LACTIC ACID WITH REFLEXon Lactate [Moles/Vol] 1.9 mmol/L Normal 0.5-2.2 [facility] Comment on above: Performed By: #### L [id number] ####Pre Press Operator: VELMA VALADEZ ([id number])[facility] ([facility])[address] [place] [address] LIPASEon 08-03-2024 Lipase [Catalytic activity/Vol] 8 U/L Normal <55 [facility] Comment on above: Performed By: #### L AB17, [id number], LAB99 ####Pre Press Operator: VELMA VALADEZ ([phone])[facility] ([facility])[address] [place] [address] Laboratory - Chemistry and C hemistry - challengeon 08-03-2024 Lactate [Moles/Vol] 1.9 mmol/L 0.5 - 2. 2 mmol/L [facility] Anion gap (Bld) [Moles/Vol] 8 mmol/L 3.00 - 13.00 [facility] Calcium.ionized (Bld) [Moles/Vol] 4.7 mg/dl 4.30 - 5.20 mg/dl [facility] Chloride [Moles/Vol] 107 mmol/L 98 - 11 4 mmol/L [facility] CO2 [Moles/Vol] 23 mmol/L 21 - 29 mmol/L [facility] Creatinine [Mass/Vol] 1.3 mg/dL 0.6 - 1.3 mg/dL [facility] GFR/1.73 sq M.predicted CKD-EPI (S/P/Bld) [Vol rate/Area] 40.6 [facility] Comment on above: KDIGO guidelines pro [...] 118 mg/dL High 70 - 100 mg/dL [facility] Potassium [Moles/Vol] 4.3 mmol/L 3.4 - 5.1 mmol/L [facility] Sodium [Moles/Vol] 138 mmol/L 133 - 145 mmol/L [facility] Urea (Bld) [Mass/Vol] 33 mg/dL High 4 - 22 mg/dL [facility] Lipase [Catalytic activity/Vol] 8 U/L NINF - 55 U/L [facility] Magnesium [Mass/Vol] 1.9 mg/dL 1.6 - 2 .6 mg/dL [facility] Laboratory - Microbiology an d Antimicrobial susceptibilityon 08-03-2024 FLUAV RNA OXANA+probe Ql (Resp) Not detected Not Detected [facility] FLUBV RNA OXANA+probe Ql (Resp) Not detected Not Detected [facility] RSV RNA OXANA+probe Ql (Resp) Not detected Not Detected [facility] SARS-CoV-2 (COVID-19) RNA OXANA+probe Ql (Resp) Not detected Not Detected [facility] SARS-CoV-2 (COVID-19) RNA OXANA+probe Ql (Unsp spec) Methodology: real-time, RT-PCR The SARS-CoV-2, Flu A/B, and RSV Combo assay is intended for in vitro diagnostic use under the FDA Emergency Use Authorization (EUA). This test has not been FDA cleared or approved. In compliance with this authorization, please visit www.fda.gov/media/76404 5/download or www.fda.gov/media/99148 6/download to access the applicable information sheets. [facility] MAGNESIUMon 08-03-2024 Magnesium [Mass/Vol] 1.9 mg/dL Normal 1.6-2.6 [facility] Comment on above: Result Comment: BUBBA Garcia COMMENTS:Higher values can be expected in females during menses. Performed By: #### L AB17, QTU105, LAB99 ####Pre Press Operator: VELMA VALADEZ ([phone])[facility] ROS[facility]A [facility] (SWRLAB)[address] [place] [address] [place] MANUAL DIFFERENTIALon 2024 BASOPHILS (10*3/UL) IN BLOOD BY MANUAL COUNT 0.0 10*3/uL Normal 0.0-0.2 [facility] Comment on above: Performed By: #### L [id number], [id number] ####Pre Press Operator: VELMA VALADEZ ([phone])[facility]A [facility]ITTMAN (SWRLAB)[address] [place] [address] [place] BASOPHILS TOTAL PER COUNTED LEUKOCYTES BY MANUAL COUNT 0 Normal [facility] Comment on above: Performed By: #### L [id number], [id number] ####Pre Press Operator: VELMA VALADEZ ([phone])[facility]A [facility]ITTMAN (SWRLAB)[address] [place] [address] [place] BASOPHILS/100 LEUKOCYTES IN BLOOD BY MANUAL COUNT 0 % Normal 0-2 [facility] Comment on above: Performed By: #### L [id number], [id number] ####Pre Press Operator: VELMA VALADEZ ([phone])[facility] (SWRLAB)[address] [place] [address] [place] CELLS COUNTED TOTAL (#) IN BLOOD 100 Normal [facility] Comment on above: Performed By: #### L [id number], [id number] ####Pre Press Operator: VELMA VALADEZ ([phone])[facility] (SWRLAB)[address] [place] [address] [place] DIFFERENTIAL METHOD Automated differenti al reported after manual slide review Normal [facility] Comment on above: Performed By: #### L QU5300, [id number] ####Pre Press Operator: VELMA VALADEZ ([phone])[facility] ROSANGELA RITTMAN (SWRLAB)[address] [place] [address] [place] EOSINOPHILS (10*3/UL) IN BLOOD BY MANUAL COUNT 0.1 10*3/uL Normal 0.0-0.5 [facility] Comment on above: Performed By: #### L SC5152, [id number] ####Pre Press Operator: VELMA VALADEZ ([phone])[facility] (SWRLAB)[address] [place] [address] [place] EOSINOPHILS TOTAL PER COUNTED LEUKOCYTES BY MANUAL COUNT 1 Normal 0-1 [facility] Comment on above: Performed By: #### L HI9586, PRX2828 ####Pre Press Operator: VELMA VALADEZ ([phone])[facility]ITTM[facility] (SWRLAB)[address] [place] [address] [place] EOSINOPHILS/100 LEUKOCYTES IN BLOOD BY MANUAL COUNT 1 % Normal 0-6 [facility] Comment on above: Performed By: #### L MI3605, [id number] ####Pre Press Operator: VELMA VALADEZ ([phone])TIFFANY[facility] ROSANGELA RITTMAN (SWRLAB)[address] [place] [address] [place] LEUKOCYTE MORPHOLOGY FINDING IN BLOOD Normal Normal [facility] Comment on above: Performed By: #### L CN3727, SJD3386 ####Pre Press Operator: VELMA VALADEZ ([phone])[facility] ROSANGELA RITTMAN (SWRLAB)[address] [place] [address] [place] LEUKOCYTES (10*3/UL) NUCLEATED ERYTHROCYTE ADJUST 9.1 10*3/uL Normal 3.6-10.7 [facility] Comment on above: Performed By: #### L [id number], [id number] ####Pre Press Operator: VELMA VALADEZ ([phone])TI[facility] ROSANGELA RITTMAN (SWRLAB)[address] [place] [address] [place] LYMPHOCYTES (10*3/UL) IN BLOOD BY MANUAL COUNT 0.5 10*3/uL Low 1.0-4.3 [facility] Comment on above: Performed By: #### L SK7592, VJL3781 ####Pre Press Operator: VELMA VALADEZ ([phone])[facility]A [facility]ITTMAN (SWRLAB)[address] [place] [address] [place] LYMPHOCYTES TOTAL PER COUNTED LEUKOCYTES BY MANUAL COUNT 5 Normal [facility] Comment on above: Performed By: #### L LC7353, CPQ8060 ####Pre Press Operator: VELMA VALADEZ ([phone])[facility]A [facility]ITTMAN (SWRLAB)[address] [place] [address] [place] LYMPHOCYTES/100 LEUKOCYTES IN BLOOD BY MANUAL COUNT 5 % Low 15-45 [facility] Comment on above: Performed By: #### L CH5660, HBG4539 ####Pre Press Operator: VELMA VALADEZ ([phone])[facility]ITTM[facility] (SWRLAB)[address] [place] [address] [place] MONOCYTES (10*3/UL) IN BLOOD BY MANUAL COUNT 0.5 10*3/uL Normal 0.0-0.9 [facility] Comment on above: Performed By: #### L [id number], [id number] ####Pre Press Operator: VELMA VALADEZ ([phone])[facility]A [facility]ITTMAN (SWRLAB)[address] [place] [address] [place] MONOCYTES TOTAL PER COUNTED LEUKOCYTES BY MANUAL COUNT 6 Normal [facility] Comment on above: Performed By: #### L RE2732, RVQ5592 ####Pre Press Operator: VELMA VALADEZ ([phone])[facility] ROSAGNELA RITTMAN (SWRLAB)[address] [place] [address] [place] MONOCYTES/100 LEUKOCYTES IN BLOOD BY MANUAL COUNT 6 % Normal 5-13 [facility] Comment on above: Performed By: #### L GC2962, OHU1525 ####Pre Press Operator: VELMA VALADEZ ([phone])[facility]IT[facility] (SWRLAB)[address] [place] [address] [place] NEUTROPHILS (SEGS+BANDS) (10*3/UL) BY MANUAL COUNT 7.9 10*3/uL High 1.8-7.0 [facility] Comment on above: Performed By: #### L DG5730, [id number] ####Pre Press Operator: VELMA VALADEZ ([phone])TIFFANYA ROSANGELA RITTMAN (SWRLAB)[address] [place] [address] [place] NEUTROPHILS TOTAL PER COUNTED LEUKOCYTES BY MANUAL COUNT 87 Normal [facility] Comment on above: Performed By: #### L DT3451, [id number] ####Pre Press Operator: VELMA VALADEZ ([phone])[facility]ITTM[facility] (SWRLAB)[address] [place] [address] [place] PLATELET MORPHOLOGY IN BLOOD Normal Normal [facility] Comment on above: Performed By: #### Weston MG4465, TSM5429 ####Pre Press Operator: VELMA VALADEZ ([phone])[facility]A RITTMAN (SWRLAB)[address] [place] [address] [place] RBC MORPHOLOGY IN BLOOD Normal Normal [facility] Comment on above: Performed By: #### L SH9958, UVU2447 ####Pre Press Operator: VELMA VALADEZ ([phone])[facility]ELA RITTMAN (SWRLAB)[address] [place] [address] [place] SEGEMENTED NEUTROPHILS/100 LEUKOCYTES BY MANUAL COUNT 87 % High 38-82 [facility] Comment on above: Performed By: #### L TT7549, [id number] ####Pre Press Operator: VELMA VALADEZ ([phone])[facility]ELA RITTMAN (SWRLAB)[address] [place] [address] [place] UNCLASSIFIED CELLS (10*3/UL) IN BLOOD BY MANUAL COUNT 0.1 10*3/uL Normal [facility] Comment on above: Performed By: #### L [id number], [id number] ####Pre Press Operator: VELMA VALADEZ ([phone])[facility]ANGELA RITTMAN (SWRLAB)[address] UNCLASSIFIED CELLS/100 LEUKOCYTES IN BLOOD 1.00 % Normal [facility] Comment on above: Performed By: #### L BB2651, [id number] ####Pre Press Operator: VELMA VALADEZ ([phone])[facility] L[facility]ERT[facility]OS (SWRLAB)[address] Magnesium [Mass/Vol]on 08-03 Higher values can be expected in females during menses. [facility] Manual differential performe d Ql (Bld)on 08-03-2024 Basophils (Bld) [#/Vol] 0 10*3/uL 0.0 - 0.2 10*3/uL [facility] Basophils Manual 0 [facility]th Basophils/100 WBC (Bld) 0 % 0 - 2 % [facility] Cells Counted Total (Bld) [#] 100 {cells} [facility] Differential Method Automated differenti al reported after manual slide review [facility] Eosinophils (Bld) [#/Vol] 0.1 10*3/uL 0.0 - 0.5 10*3/uL [facility] Eosinophils Manual 1 0 - 1 [facility] Eosinophils/100 WBC (Bld) 1 % 0 - 6 % [facility] Leukocyte morphology finding Nom (Bld) Normal [facility] Lymphocytes (Bld) [#/Vol] 0.5 10*3/uL Low 1.0 - 4.3 10*3/uL [facility] Lymphocytes Manual 5 [facility] Lymphocytes/100 WBC (Bld) 5 % Low 15 - 45 % [facility] Monocytes (Bld) [#/Vol] 0.5 10*3/uL 0.0 - 0.9 10*3/uL [facility] Monocytes Manual 6 [facility]th Monocytes/100 WBC (Bld) 6 % 5 - 13 % [facility] Neutrophils (Bld) [#/Vol] 7.9 10*3/uL High 1.8 - 7.0 10*3/uL [facility] Neutrophils Manual 87 [facility] Platelet morphology finding Nom (Bld) Normal [facility] RBC morphology finding Nom (Bld) Normal [facility] Segmented neutrophils/100 WBC (Bld) 87 % High 38 - 82 % [facility] Unclassified Cells % 1 % [facility] Unclassified Cells, Abs. 0.1 10*3/uL [facility] WBC corrected for nucl RBC (Bld) [#/Vol] 9.1 10*3/uL 3.6 - 10.7 10*3/uL [facility] No Panel Informationon 08-03 Interpretation and review of laboratory results Normal [facility] Interpretation and review of laboratory results Abnormal [facility] Performed by: [facility], [address] [place] [address] CLIA ID: [id number] [facility] Interpretation and review of laboratory results Normal [facility] No Panel InformationOrdered By: Christin Mayes on 08-03-2024 Interpretation and review of laboratory results Abnormal [facility] SARS-COV-2, FLU A/B, AND RSV COMBOon 08-03-2024 SARS-CoV-2 (COVID-19) RNA OXANA+probe Ql (Unsp spec) Normal [facility] Comment on above: Performed By: #### L [id number] ####Pre Press Operator: VELMA VALADEZ ([phone])[facility] (SWRLAB)[address] [place] [address] SARS-CoV-2, Flu A/B, and RSV Comboon 08-03-2024 Interpretation and review of laboratory results Normal [facility] XR Chest Single viewon 08-03 No acute abnormality Report Dictated on Electronically Signed By: Ming Fry MD Electronically Signed Date/Time: 08/03/2024 3:33 AM [facility] Patient Name: MEL CARVER RD [...] within the right humerus. No acute fracture. [facility] Ming Fry MD - 08/03/2024 Patient Name: MEL POP : 1940 [facility]#: [id number] Exam Date/Time: 08/03/2024 02:53 Procedure: XR CHEST [...] Electronically Signed Date/Time: 08/03/2024 3:33 AM EST [facility] Radiology Study observation (narrative) [facility] XR Chest Single viewOrdered By: Ming Fry on 08-03-2024 [facility] Work Phone: ANES POSTPROC EVALon 025 ANES POSTPROC EVAL HNO ID: [id number] Author: ROBINSON BRUNNER MD Service: ? Author Type: Anesthesiologist Type: Anesthesia Postprocedure Evaluation Filed: 07/31/2024 12:48 Note Text: POST ANESTHESIA EVALUATION NOTE : 1940 Procedure Summary Date: 07/27/24 Room / Location: [place] [address] [place] [facility] Anesthesia Start: 1114 Anesthesia Stop: 1322 Procedures: VITRECTOMY 25G [facility] PARS PLANA APPROACH W/ REMOVAL OF [...] with this procedure. Documented by Mikhail Nichols APRN.[employer]ICE SALES REPRESENTATIVE 07/27/2024 1:22 PM EST SIGNATURE: Robinson Pizano MD PATIENT NAME: Mel Castillo DATE: July 31, 2024 TIME: 12:46 PM CSN: [id number] Normal [facility] ANES PRE-OPon 07-27-2024 ANES PRE-OP HNO ID: [id number] Author: ROBINSON BRUNNER MD Service: ? Author Type: Anesthesiologist Type: Anesthesia Preprocedure Evaluation Filed: 07/27/2024 11:10 Note Text: ANESTHESIOLOGY DAY OF SURGERY NOTE : 1940 Procedure Information Date/Time: 07/27/24 1110 Procedures: [facility] W/ REMOVAL OF PRERETINAL CELLULAR MEMBRANE (Right: Eye) RELEASE OF VITREOUS, CHOROIDAL FLUID, PARS PLANA APPROACH (Right: Eye) Location: [place] [address] / [facility] Surgeons: Savana [...] OPERATIVE NOon 07-27-2024 OPERATIVE NO HNO ID: [id number] Author: SAVANA LOPEZ MD Service: Ophthalmology Author Type: Physician Type: Operative Report Filed: 07/27/2024 13:20 Note Text: [place] [address] [facility] OPERATIVE REPORT LOG ID: [id number] Surgery/Procedure Date: 07/27/2024 Incision/Procedure Start Time: 11:39 AM Incision Close/Procedure End Time: 1:07 PM NAME: Mel Serna Pop [facility] #: [id number] SURGEON(S) AND SHIPFITTER(S): Surgeons and Role: Panel 1: * Savana [...] was repaired by the use of max radiology administrator forceps and vitreous cutter. This was a [...] [facility] BSCAN OD (RIGHT EYE)on 07-24 [facility] Right eye Photo documentatio non 07-24-2024 [facility] BSCAN OD (RIGHT EYE)on 07-23 Radiology Study observation (narrative) [facility] Right eye Photo documentatio non 07-23-2024 Radiology Study observation (narrative) [facility] CASE MANAGEMon 07-18-2024 CASE MANAGEM HNO ID: [id number] Author: DOMINIQUE RAMSAY LSW Service: ? Author Type: Obstetrics Tech Type: Care Mgt Progress Note Filed: 07/18/2024 11:21 Note Text: CARE MANAGEMENT DISCHARGE NOTE SERVICE DATE: July 18, 2024 SERVICE TIME: 11:19 AM Admission Date: 07/07/2024 LOS: 11 days Discharge Arrangement Discharge Arrangement: Long Term Facility Services Arranged Medical Services: Other: See Comment (N/A) Caregiver Assessment Caregiver is ready, willing and able to meet the patient's needs as recommended by the inter-professional team: Yes Name of Caregiver: [facility] Transportation Arrangements Transportation Arrangements: Ambulance Transportation Agency and Phone #:: [facility] [phone] Date of Trip: 07/18/24 Time of Trip: 1100 Type of Service: BLS Non-emergency Handoff Communication: Handoff to: Primary Care Physician Primary Care Physician Name/Phone: Jared Evans Additional Information: Discharge Information Row Name Admission (Current) from 07/07/2024 in [facility] Long Term Facility Agency [address] [address] Patient d/c ready to [facility] via [facility] with picker box operator scheduled for 11am today by Stretcher. Patient aware of plan. Bedside RN aware of plan and provided number to call report for nurse report; call [phone] :) Cuff Turner Machine Operator can transfer you to the 2nd floor. . 7000 and DC instructions sent to Dru Tomlin via [employer] and are in DC packet. DC packet in chart to go with patient. SIGNATURE: SHAQUILLE Garay PATIENT NAME: Mel Castillo DATE: July 18, 2024 TIME: 11:19 AM Normal [facility] CBC panel Auto (Bld)on 07-18 Erythrocyte distribution width (RBC) [Ratio] 17.5 % High 11.5-15.0 [facility] Comment on above: Order Comment: Speci men Type: BLOOD SPECIMEN Ordering Facility: [facility] Address: [address] [place] [address] Performed By: #### 5 8410-2 #### [facility] CLIA [id number] [address] [place] [address] [place] Hematocrit (Bld) [Volume fraction] 33.8 % Low 36.0-46.0 [facility] Comment on above: Order Comment: Speci men Type: BLOOD SPECIMEN Ordering Facility: [facility] Address: [address] [place] [address] Performed By: #### 5 8410-2 #### [facility] CLIA [id number] [address] [place] [address] [place] Hemoglobin (Bld) [Mass/Vol] 10.5 g/dL Low 11.5-15.5 [facility] Comment on above: Order Comment: Speci men Type: BLOOD SPECIMEN Ordering Facility: [facility] Address: [address] [place] [address] Performed By: #### 5 8410-2 #### [facility] CLIA [id number] [address] [place] [address] [place] MCH (RBC) [Entitic mass] 26.0 pg Normal 26.0-34.0 [facility] Comment on above: Order Comment: Speci men Type: BLOOD SPECIMEN Ordering Facility: [facility] Address: [address] [place] [address] Performed By: #### 5 8410-2 #### [facility] CLIA [id number] [address] [place] [address] [place] MCHC (RBC) [Mass/Vol] 31.1 g/dL Normal 30.5-36.0 [facility] Comment on above: Order Comment: Speci men Type: BLOOD SPECIMEN Ordering Facility: [facility] Address: [address] [place] [address] Performed By: #### 5 8410-2 #### [facility] CLIA [id number] [address] [place] [address] [place] MCV (RBC) [Entitic vol] 83.7 fL Normal 80.0-100.0 [facility] Comment on above: Order Comment: Speci men Type: BLOOD SPECIMEN Ordering Facility: [facility] Address: [address] [place] [address] Performed By: #### 5 8410-2 #### [facility] CLIA [id number] [address] [place] [address] [place] Nucleated RBC (Bld) [#/Vol] 10*3/uL Normal <0.01 [facility] Comment on above: Order Comment: Speci men Type: BLOOD SPECIMEN Ordering Facility: [facility] Address: [address] [place] [address] Performed By: #### 5 8410-2 #### [facility] CLIA [id number] [address] [place] [address] [place] Platelet mean volume (Bld) [Entitic vol] 9.3 fL Normal 9.0-12.7 [facility] Comment on above: Order Comment: Speci men Type: BLOOD SPECIMEN Ordering Facility: [facility] Address: [address] [place] [address] Performed By: #### 5 8410-2 #### [facility] CLIA [id number] [address] [place], [place] [address] [place] Platelets (Bld) [#/Vol] 386 10*3/uL Normal 150-400 [facility] Comment on above: Order Comment: Speci men Type: BLOOD SPECIMEN Ordering Facility: [facility] Address: [address] [place] [address] Performed By: #### 5 8410-2 #### [facility] CLIA [id number] [address] [place] [address] [place] RBC (Bld) [#/Vol] 4.04 10*6/uL Normal 3.90-5.20 [facility] Comment on above: Order Comment: Speci men Type: BLOOD SPECIMEN Ordering Facility: [facility] Address: [address] [place] [address] Performed By: #### 5 8410-2 #### [facility] CLIA [id number] [address] [place] [address] [place] WBC (Bld) [#/Vol] 10.81 10*3/uL Normal 3.70-11.00 [facility] Comment on above: Order Comment: Speci men Type: BLOOD SPECIMEN Ordering Facility: [facility] Address: [address] [place] [address] Performed By: #### 5 8410-2 #### [facility] CLIA [id number] [address] [place] [address] [place] CNDSon 07-18-2024 CNDS HNO ID: [id number] Author: BRIANA PRITCHARD MD Service: General Internal [...] May 2024 who presents to O[facility] from [facility] for further evaluation of R acute angle [...] 07-18-2024 Albumin [Mass/Vol] 3.2 g/dL Low 3.9-4.9 [facility] Comment on above: Order Comment: Speci men Type: BLOOD SPECIMEN Ordering Facility: [facility] Address: [address] [place] [address] Performed By: #### 2 4362-6 #### [facility] CLIA [id number] [address] [place] [address] [place] Anion gap [Moles/Vol] 11 mmol/L Normal 8-15 [facility] Comment on above: Order Comment: Speci men Type: BLOOD SPECIMEN Ordering Facility: [facility] Address: [address] [place] [address] Performed By: #### 2 4362-6 #### [facility] CLIA [id number] [address] [place] [address] [place] Calcium [Mass/Vol] 9.3 mg/dL Normal 8.5-10.2 [facility] Comment on above: Order Comment: Speci men Type: BLOOD SPECIMEN Ordering Facility: [facility] Address: [address] [place] [address] Performed By: #### 2 4362-6 #### [facility] CLIA [id number] [address] [place] [address] [place] Chloride [Moles/Vol] 102 mmol/L Normal 98-107 [facility] Comment on above: Order Comment: Speci men Type: BLOOD SPECIMEN Ordering Facility: [facility] Address: [address] [place] [address] Performed By: #### 2 4362-6 #### [facility] CLIA [id number] [address] [place] [address] [place] CO2 [Moles/Vol] 25 mmol/L Normal 22-30 [facility] Comment on above: Order Comment: Speci men Type: BLOOD SPECIMEN Ordering Facility: [facility] Address: [address] [place] [address] Performed By: #### 2 4362-6 #### [facility] CLIA [id number] [address] [place] [address] [place] Creatinine [Mass/Vol] 0.90 mg/dL Normal 0.58-0.96 [facility] Comment on above: Order Comment: Rhina mason Type: BLOOD SPECIMEN Ordering Facility: [facility] Address: [address] [place] [address] Performed By: #### 2 4362-6 #### [facility] CLIA [id number] [address] [place] [address] [place] Creatinine and Glomerular filtration rate.predicted panel (S/P/Bld) 63 mL/min/1.73m??? Normal >=60 [facility] Comment on above: Order Comment: Rhina mason Type: BLOOD SPECIMEN Ordering Facility: [facility] Address: [address] [place] [address] Result Comment: Isa mated Glomerular Filtration Rate [...] GFR. Performed By: #### 2 4362-6 #### [facility] CLIA [id number] [address] [place] [address] [place] Glucose [Mass/Vol] 105 mg/dL High 74-99 [facility] Comment on above: Order Comment: Rhina mason Type: BLOOD SPECIMEN Ordering Facility: [facility] Address: [address] [place] [address] Result Comment: The [place] Diabetes Association (ADA) provides guidance for cutoff [...] Standards of Medical Care in Diabetes 2016, [place] [employer] Association. Diabetes Care. 2016.39(Suppl 1). Performed By: #### 2 4362-6 #### [facility] CLIA [id number] [address] [place] [address] [place] Phosphate [Mass/Vol] 3.0 mg/dL Normal 2.7-4.8 [facility] Comment on above: Order Comment: Speci men Type: BLOOD SPECIMEN Ordering Facility: [facility] Address: [address] [place] [address] Performed By: #### 2 4362-6 #### [facility] CLIA [id number] [address] [place] [address] [place] Potassium [Moles/Vol] 4.5 mmol/L Normal 3.7-5.1 [facility] Comment on above: Order Comment: Samiri isabella Type: BLOOD SPECIMEN Ordering Facility: [facility] Address: [address] [place] [address] Performed By: #### 2 4362-6 #### [facility] CLIA [id number] [address] [place] [address] [place] Sodium [Moles/Vol] 138 mmol/L Normal 136-144 [facility] Comment on above: Order Comment: Speci men Type: BLOOD SPECIMEN Ordering Facility: [facility] Address: [address] [place] [address] Performed By: #### 2 4362-6 #### [facility] CLIA [id number] [address] [place] [address] [place] Urea nitrogen [Mass/Vol] 17 mg/dL Normal 7-21 [facility] Comment on above: Order Comment: Speci men Type: BLOOD SPECIMEN Ordering Facility: [facility] Address: [address] [place] [address] Performed By: #### 2 4362-6 #### [facility] CLIA [id number] [address] [place] [address] [facility] CASE MANAGEMon 07-17-2024 CASE MANAGEM HNO ID: [id number] Author: ?, ?, ? Service: ? Author Type: ? Type: Care Mgt Progress Note Filed: 07/17/2024 14:07 Note Text: CARE MANAGEMENT PROGRESS NOTE SERVICE DATE: 07/17/2024 SERVICE TIME: 2:07 PM LOS: 10 days Discharge packet completed and dropped off by assistant kitchen manager Tamiko Holley. Packet is missing AVS/DC forms, please reach out to case sealer with any discharge related questions. SIGNATURE: Tamiko Holley PATIENT NAME: Mel Castillo DATE: July 17, 2024 TIME: 2:07 PM Normal [facility] CASE MANAGEM HNO ID: [id number] Author: DOMINIQUE RAMSAY LSW Service: ? Author Type: Obstetrics Tech Type: Care Mgt Progress Note Filed: 07/17/2024 13:44 Note Text: CARE MANAGEMENT HOLIDAY PLANNING NOTE DISCHARGE OR POSSIBLE DISCHARGE Date/Time: 07/18 at 11am Disposition: Long Term Facility - Precert Obtained: Yes Facility Name: [facility] Phone #: Transport: Mode of Transportation: Ambulance Transportation Agency and Phone #: [facility] [phone] . Date of Trip: 07/18/2024 at 11am Other Concerns: 11 am DC via [facility] trip# #[id number] to take Pt to [facility]. Pre-cert is approved, a bed is available, and Pt is medically ready. 7000 has been tasked. DC packet has been tasked. DNR form is on green chart. 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 SIGNATURE: SHAQUILLE Garay PATIENT NAME: Mel Castillo DATE: July 17, 2024 TIME: 1:42 PM PAGER/CONTACT #: Normal [facility] CASE MANAGEM HNO ID: [id number] Author: BASILIA CAPPS, Mabel Service: ? Author Type: ? Type: Care Mgt Progress Note Filed: 07/17/2024 13:14 Note Text: [facility] PRECERT NOTE [employer] MEDICARE PPO approved Long Term Facility for Rosangela Tomlin . Precert approved through 07/19/2024. For any additional questions regarding approvals, transport or care management needs, please contact the CM assigned to this patient in the Treatment Team. SIGNATURE: Basilia Capps DATE: July 17, 2024 TIME: 1:14 PM Normal [facility] CASE MANAGEM HNO ID: [id number] Author: DOMINIQUE RAMSAY LSW Service: General Internal Medicine Author Type: Obstetrics Tech Type: Care Mgt Progress Note Filed: 07/17/2024 11:29 Note Text: Attestation signed by Thomas Car DO at 07/17/2024 11:37 AM Thomas Car D.O. PGY-2 Internal Medicine Resident [facility] Click here to page July [...] * Attending Physician: Briana Pritchard MD Normal [facility] CBC panel Auto (Bld)on 07-17 Erythrocyte distribution width (RBC) [Ratio] 17.2 % High 11.5-15.0 [facility] Comment on above: Order Comment: Rhina mason Type: BLOOD SPECIMEN Ordering Facility: [facility] Address: [address] [place] [address] Performed By: #### 2 276-4 #### [employer] CLIA [id number] [address] [place] [address] [place] Hematocrit (Bld) [Volume fraction] 32.3 % Low 36.0-46.0 [facility] Comment on above: Order Comment: Rhina mason Type: BLOOD SPECIMEN Ordering Facility: [facility] Address: [address] [place] [address] Performed By: #### 2 276-4 #### [facility] CLIA [id number] [address] [place] [address] [place] Hemoglobin (Bld) [Mass/Vol] 10.2 g/dL Low 11.5-15.5 [facility] Comment on above: Order Comment: Rhina mason Type: BLOOD SPECIMEN Ordering Facility: [facility] Address: [address] [place] [address] Performed By: #### 2 276-4 #### [facility] CLIA [id number] [address] [place] [address] [place] MCH (RBC) [Entitic mass] 26.5 pg Normal 26.0-34.0 [facility] Comment on above: Order Comment: Speci men Type: BLOOD SPECIMEN Ordering Facility: [facility] Address: [address] [place] [address] Performed By: #### 2 276-4 #### [facility] CLIA [id number] [address] [place] [address] [place] MCHC (RBC) [Mass/Vol] 31.6 g/dL Normal 30.5-36.0 [facility] Comment on above: Order Comment: Speci men Type: BLOOD SPECIMEN Ordering Facility: [facility] Address: [address] [place] [address] Performed By: #### 2 276-4 #### [facility] CLIA [id number] [address] [place] [address] [place] MCV (RBC) [Entitic vol] 83.9 fL Normal 80.0-100.0 [facility] Comment on above: Order Comment: Speci men Type: BLOOD SPECIMEN Ordering Facility: [facility] Address: [address] [place] [address] Performed By: #### 2 276-4 #### [facility] CLIA [id number] [address] [place] [address] [place] Nucleated RBC (Bld) [#/Vol] 10*3/uL Normal <0.01 [facility] Comment on above: Order Comment: Speci men Type: BLOOD SPECIMEN Ordering Facility: [facility] Address: [address] [place] [address] Performed By: #### 2 276-4 #### [facility] CLIA [id number] [address] [place] [address] [place] Platelet mean volume (Bld) [Entitic vol] 9.7 fL Normal 9.0-12.7 [facility] Comment on above: Order Comment: Speci men Type: BLOOD SPECIMEN Ordering Facility: [facility] Address: [address] [place] [address] Performed By: #### 2 276-4 #### [facility] CLIA [id number] [address] [place] [address] [place] Platelets (Bld) [#/Vol] 362 10*3/uL Normal 150-400 [facility] Comment on above: Order Comment: Speci men Type: BLOOD SPECIMEN Ordering Facility: [facility] Address: [address] [place] [address] Performed By: #### 2 276-4 #### [facility] CLIA [id number] [address] [place] [address] [place] RBC (Bld) [#/Vol] 3.85 10*6/uL Low 3.90-5.20 [facility] Comment on above: Order Comment: Speci men Type: BLOOD SPECIMEN Ordering Facility: [facility] Address: [address] [place] [address] Performed By: #### 2 276-4 #### [facility] CLIA [id number] [address] [place] [address] [place] WBC (Bld) [#/Vol] 9.41 10*3/uL Normal 3.70-11.00 [facility] Comment on above: Order Comment: Speci men Type: BLOOD SPECIMEN Ordering Facility: [facility] Address: [address] [place] [address] Performed By: #### 2 276-4 #### [facility] CLIA [id number] [address] [place] [address] [place] Renal function 2000 panelon 07-17-2024 Albumin [Mass/Vol] 3.3 g/dL Low 3.9-4.9 [facility] Comment on above: Order Comment: Speci men Type: BLOOD SPECIMENOrdering Facility: [facility] Address: [address] [place] [address] Performed By: #### 2 4362-6 ####[facility] [id number] [facility] [place] [id number] [place] Anion gap [Moles/Vol] 10 mmol/L Normal 8-15 [facility] Comment on above: Order Comment: Speci men Type: BLOOD SPECIMENOrdering Facility: [facility] Address: [address] [place], [place] [address] Performed By: #### 2 4362-6 ####[facility] [id number] [address] [address] [place] Calcium [Mass/Vol] 9.0 mg/dL Normal 8.5-10.2 [facility] Comment on above: Order Comment: Speci men Type: BLOOD SPECIMENOrdering Facility: [facility] Address: [address] [place], [place] [address] Performed By: #### 2 4362-6 ####[facility] [id number] [place] [address] [place] Chloride [Moles/Vol] 101 mmol/L Normal 98-107 [facility] Comment on above: Order Comment: Speci men Type: BLOOD SPECIMENOrdering Facility: [facility] Address: [address] [place], [place] [address] Performed By: #### 2 4362-6 ####[facility] [id number] [place] [address] [place] CO2 [Moles/Vol] 25 mmol/L Normal 22-30 [facility] Comment on above: Order Comment: Speci men Type: BLOOD SPECIMENOrdering Facility: [facility] Address: [address] [place], [place] [address] Performed By: #### 2 4362-6 ####[facility] [id number] [place] [id number] [place] Creatinine [Mass/Vol] 0.94 mg/dL Normal 0.58-0.96 [facility] Comment on above: Order Comment: Speci men Type: BLOOD SPECIMENOrdering Facility: [facility] Address: [address] [place], [place] [address] Performed By: #### 2 4362-6 ####[facility] [id number] [place] [address] [place] Creatinine and Glomerular filtration rate.predicted panel (S/P/Bld) 60 mL/min/1.73m??? Normal >=60 [facility] Comment on above: Order Comment: Rhina mason Type: BLOOD SPECIMENOrdering Facility: [facility] Address: [address] [place] [address] Result Comment: Isa mated Glomerular Filtration Rate [...] actual GFR. Performed By: #### 2 4362-6 ####[facility] [id number] [place] [address] [place] Glucose [Mass/Vol] 112 mg/dL High 74-99 [facility] Comment on above: Order Comment: Rhina mason Type: BLOOD SPECIMENOrdering Facility: [facility] Address: [address] [place] [address] Result Comment: The [place] Diabetes Association (ADA) provides guidance for cutoff [...] Standards of Medical Care in Diabetes 2016, [place] [employer]. Diabetes Care. 2016.39(Suppl 1). Performed By: #### 2 4362-6 ####[facility] [id number] [place] [address] [place] Phosphate [Mass/Vol] 2.2 mg/dL Low 2.7-4.8 [facility] Comment on above: Order Comment: Speci men Type: BLOOD SPECIMENOrdering Facility: [facility] Address: [address] [place] [address] Performed By: #### 2 4362-6 ####[facility] [id number] [place] [address] [place] Potassium [Moles/Vol] 4.6 mmol/L Normal 3.7-5.1 [facility] Comment on above: Order Comment: Speci men Type: BLOOD SPECIMENOrdering Facility: [facility] Address: [address] [place] [address] Performed By: #### 2 4362-6 ####[facility] [id number] [place] [address] [place] Sodium [Moles/Vol] 136 mmol/L Normal 136-144 [facility] Comment on above: Order Comment: Speci men Type: BLOOD SPECIMENOrdering Facility: [facility] Address: [address] [place] [address] Performed By: #### 2 4362-6 ####[facility] [id number] [place] [address] [place] Urea nitrogen [Mass/Vol] 20 mg/dL Normal 7-21 [facility] Comment on above: Order Comment: Speci men Type: BLOOD SPECIMENOrdering Facility: [facility] Address: [address] [place] [address] Performed By: #### 2 4362-6 ####[facility] [id number] [place] [address] [place] THERAPY NTon 07-17-2024 THERAPY NT HNO ID: [id number] Author: SANTIAGO GUZMAN OT/L Service: Occupational Therapy Author Type: Occupational Therapist Type: Therapy (PT/OT/Speech/Resp) Filed: 07/17/2024 15:14 Note Text: Occupational Therapy Treatment Summary SERVICE DATE: 07/17/2024 SERVICE TIME: 1425 to 1504 ROOM: [place] [address] OT 6 Clicks Score: 15 DISCHARGE RECOMMENDATIONS [...] (ADL), Muscle Weakness (generalized) TREATMENT INTERVENTIONS Self Mcfp Management (45695) Timed Code Treatment (minutes): 39 Skilled Treatment [...] Sit to Stand, Standing Balance to Improve [place] with ADLs/Self-Care, Sitting Balance to Improve [place] with ADLs/Self-Care, Life Roles/Routines/Habits THERAPEUTIC SKILLS USED [...] to Radha (more content not included)... Normal [facility] NT HNO ID: [id number] Author: GABRIELLA DALEY, PT Service: Physical Therapy Author Type: Physical Therapist Type: Therapy (PT/OT/Speech/Resp) Filed: 07/17/2024 09:31 Note Text: Physical Therapy Evaluation Summary SERVICE DATE: 07/17/2024 SERVICE TIME: 832 ROOM: 60[facility] PT 6 Clicks Score: 18 DISCHARGE RECOMMENDATIONS [...] DIAGNOSIS Reduced mobility-other TREATMENT INTERVENTIONS $ Evaluation-Moderate (98818) Billed Units: 1 unit Therapeutic Activity (83898) Treatment Minutes: 10 $ Therapeutic Activity (32467) Billed Units: 1 unit Gait Training (12278) Treatment Minutes: 14 $ Gait Training (43036) Billed Units: 1 unit Evaluation, Therapeutic Activity (81142), Gait Training (50563) Timed Code Treatment (minutes): 24 Skilled Treatment [...] [facility] BSCAN OD (RIGHT EYE)on 07-16 [facility] Radiology Study observation (narrative) [facility] CBC panel Auto (Bld)on 07-16 Erythrocyte distribution width (RBC) [Ratio] 17.8 % High 11.5-15.0 [facility] Comment on above: Order Comment: Speci men Type: BLOOD SPECIMEN Ordering Facility: [facility] Address: [address] [place] [id number] Performed By: #### 5 8410-2 #### [facility] CLIA [id number] [address] [place] [address] [place] Hematocrit (Bld) [Volume fraction] 33.2 % Low 36.0-46.0 [facility] Comment on above: Order Comment: Speci men Type: BLOOD SPECIMEN Ordering Facility: [facility] Address: [address] [place] [address] Performed By: #### 5 8410-2 #### [facility] CLIA [id number] [address] [place] [address] [place] Hemoglobin (Bld) [Mass/Vol] 10.3 g/dL Low 11.5-15.5 [facility] Comment on above: Order Comment: Speci men Type: BLOOD SPECIMEN Ordering Facility: [facility] Address: [address] [place] [address] Performed By: #### 5 8410-2 #### [facility] CLIA [id number] [address] [place] [address] [place] MCH (RBC) [Entitic mass] 25.6 pg Low 26.0-34.0 [facility] Comment on above: Order Comment: Speci men Type: BLOOD SPECIMEN Ordering Facility: [facility] Address: [address] [place] [address] Performed By: #### 5 8410-2 #### [facility] CLIA [id number] [address] [place] [address] [place] MCHC (RBC) [Mass/Vol] 31.0 g/dL Normal 30.5-36.0 [facility] Comment on above: Order Comment: Speci men Type: BLOOD SPECIMEN Ordering Facility: [facility] Address: [address] [place] [address] Performed By: #### 5 8410-2 #### [facility] CLIA [id number] [address] [place] [address] [place] MCV (RBC) [Entitic vol] 82.4 fL Normal 80.0-100.0 [facility] Comment on above: Order Comment: Speci men Type: BLOOD SPECIMEN Ordering Facility: [facility] Address: [address] [place] [address] Performed By: #### 5 8410-2 #### [facility] CLIA [id number] [address] [place] [address] [place] Nucleated RBC (Bld) [#/Vol] 10*3/uL Normal <0.01 [facility] Comment on above: Order Comment: Speci men Type: BLOOD SPECIMEN Ordering Facility: [facility] Address: [address] [place] [address] Performed By: #### 5 8410-2 #### [facility] CLIA [id number] [address] [place] [address] [place] Platelet mean volume (Bld) [Entitic vol] 9.8 fL Normal 9.0-12.7 [facility] Comment on above: Order Comment: Speci men Type: BLOOD SPECIMEN Ordering Facility: [facility] Address: [address] [place] [address] Performed By: #### 5 8410-2 #### [facility] CLIA [id number] [address] [place] [address] [place] Platelets (Bld) [#/Vol] 348 10*3/uL Normal 150-400 [facility] Comment on above: Order Comment: Speci men Type: BLOOD SPECIMEN Ordering Facility: [facility] Address: [address] [place] [address] Performed By: #### 5 8410-2 #### [facility] CLIA [id number] [address] [place] [address] [place] RBC (Bld) [#/Vol] 4.03 10*6/uL Normal 3.90-5.20 [facility] Comment on above: Order Comment: Speci men Type: BLOOD SPECIMEN Ordering Facility: [facility] Address: [address] [place] [address] Performed By: #### 5 8410-2 #### [facility] CLIA [id number] [address] [place] [address] [place] WBC (Bld) [#/Vol] 11.15 10*3/uL High 3.70-11.00 [facility] Comment on above: Order Comment: Speci men Type: BLOOD SPECIMEN Ordering Facility: [facility] Address: [address] [place] [address] Performed By: #### 5 8410-2 #### [facility] CLIA [id number] [address] [place] [address] [place] FUNDUS PHOTOS OU (BOTH EYES) on 07-16-2024 [facility] Radiology Study observation (narrative) [facility] Renal function 2000 panelon 07-16-2024 Albumin [Mass/Vol] 3.1 g/dL Low 3.9-4.9 [facility] Comment on above: Order Comment: Speci men Type: BLOOD SPECIMENOrdering Facility: [facility] Address: [address] [place] [address] Performed By: #### 2 4362-6 ####[facility] [id number] [place] [address] [place] Anion gap [Moles/Vol] 12 mmol/L Normal 8-15 [facility] Comment on above: Order Comment: Speci men Type: BLOOD SPECIMENOrdering Facility: [facility] Address: [address] [place] [address] Performed By: #### 2 4362-6 ####[facility] [id number] [place] [address] [place] Calcium [Mass/Vol] 9.0 mg/dL Normal 8.5-10.2 [facility] Comment on above: Order Comment: Speci men Type: BLOOD SPECIMENOrdering Facility: [facility] Address: [address] [place] [address] Performed By: #### 2 4362-6 ####[facility] [id number] [place] [address] [place] Chloride [Moles/Vol] 103 mmol/L Normal 98-107 [facility] Comment on above: Order Comment: Speci men Type: BLOOD SPECIMENOrdering Facility: [facility] Address: [address] [place] [address] Performed By: #### 2 4362-6 ####[facility] [id number] [place] [address] [place] CO2 [Moles/Vol] 23 mmol/L Normal 22-30 [facility] Comment on above: Order Comment: Speci men Type: BLOOD SPECIMENOrdering Facility: [facility] Address: [address] [place] [address] Performed By: #### 2 4362-6 ####[facility] [id number] [place] [address] [place] Creatinine [Mass/Vol] 1.09 mg/dL High 0.58-0.96 [facility] Comment on above: Order Comment: Speci men Type: BLOOD SPECIMENOrdering Facility: [facility] Address: [address] [place] [address] Performed By: #### 2 4362-6 ####[facility] [id number] [place] [address] [place] Creatinine and Glomerular filtration rate.predicted panel (S/P/Bld) 50 mL/min/1.73m??? Low >=60 [facility] Comment on above: Order Comment: Speci men Type: BLOOD SPECIMENOrdering Facility: [facility] Address: [address] [place] [address] Result Comment: Isa mated Glomerular Filtration Rate [...] actual GFR. Performed By: #### 2 4362-6 ####[facility] [id number] [place] [address] [place] Glucose [Mass/Vol] 103 mg/dL High 74-99 [facility] Comment on above: Order Comment: Rhina mason Type: BLOOD SPECIMENOrdering Facility: [facility] Address: [address] [place] [address] Result Comment: The [place] Diabetes Association (ADA) provides guidance for cutoff [...] Standards of Medical Care in Diabetes 2016, [place] [employer]. Diabetes Care. 2016.39(Suppl 1). Performed By: #### 2 4362-6 ####[facility] [id number] [place] [id number] [place] Phosphate [Mass/Vol] 2.9 mg/dL Normal 2.7-4.8 [facility] Comment on above: Order Comment: Rhina mason Type: BLOOD SPECIMENOrdering Facility: [facility] Address: [address] [place] [address] Performed By: #### 2 4362-6 ####[facility] [id number] [place] [address] [place] Potassium [Moles/Vol] 4.5 mmol/L Normal 3.7-5.1 [facility] Comment on above: Order Comment: Speci men Type: BLOOD SPECIMENOrdering Facility: [facility] Address: [address] [place] [address] Performed By: #### 2 4362-6 ####[facility] [id number] [place] [address] [place] Sodium [Moles/Vol] 138 mmol/L Normal 136-144 [facility] Comment on above: Order Comment: Speci men Type: BLOOD SPECIMENOrdering Facility: [facility] Address: [address] [place] [address] Performed By: #### 2 4362-6 ####[facility] [id number] [place] [address] [place] Urea nitrogen [Mass/Vol] 22 mg/dL High 7-21 [facility] Comment on above: Order Comment: Speci men Type: BLOOD SPECIMENOrdering Facility: [facility] Address: [address] [place] [address] Performed By: #### 2 4362-6 ####[facility] [id number] [place] [address] [place] THERAPY NTon 07-16-2024 THERAPY NT HNO ID: [id number] Author: SANTIAGO GUZMAN OT/[place] Service: Occupational Therapy Author Type: Occupational Therapist Type: Therapy (PT/OT/Speech/Resp) Filed: 07/16/2024 15:10 Note Text: Occupational Therapy Treatment Summary SERVICE DATE: 07/16/2024 SERVICE TIME: 1415 to 1500 ROOM: [place] [address] OT 6 Clicks Score: 15 DISCHARGE RECOMMENDATIONS [...] PRECAUTIONS Fall Risk, Lines/Tubes/Drains CURRENT HOSPITAL COURSE Mle Serna Kiehsa Castillo is a 83 year old female [...] (ADL), Muscle Weakness (generalized) TREATMENT INTERVENTIONS Self Mcfp Management (90053) Timed Code Treatment (minutes): 45 Skilled Treatment [...] Sit to Stand, Standing Balance to Improve [place] with ADLs/Self-Care, Sitting Balance to Improve [place] with ADLs/Self-Care, Life Roles/Routines/Habits THERAPEUTIC SKILLS USED [...] Speci men Type: BLOOD SPECIMEN [facility] Address: [address] [place] [address] Performed By: #### 2 4362-6 #### [facility] CLIA [id number] [address] [place] [address] [place] Hematocrit (Bld) [Volume fraction] 34.4 % Low 36.0-46.0 [facility] Comment on above: Order Comment: Speci men Type: BLOOD SPECIMEN [facility] Address: [address] [place] [address] Performed By: #### 2 4362-6 #### [facility] CLIA [id number] [address] [place] [address] [place] Hemoglobin (Bld) [Mass/Vol] 10.7 g/dL Low 11.5-15.5 [facility] Comment on above: Order Comment: Speci men Type: BLOOD SPECIMEN [facility]: [facility] Address: [address] [place] [address] Performed By: #### 2 4362-6 #### [facility] CLIA [id number] [address] [place] [address] [place] MCH (RBC) [Entitic mass] 26.2 pg Normal 26.0-34.0 [facility] Comment on above: Order Comment: Speci men Type: BLOOD SPECIMEN [facility]ing Facility: [facility] Address: [address] [place] [address] Performed By: #### 2 4362-6 #### [facility] CLIA [id number] [address] [place] [address] [place] MCHC (RBC) [Mass/Vol] 31.1 g/dL Normal 30.5-36.0 [facility] Comment on above: Order Comment: Speci men Type: BLOOD SPECIMEN [facility]ing Facility: [facility] Address: [address] [place] [address] Performed By: #### 2 4362-6 #### [facility] CLIA [id number] [address] [place] [address] [place] MCV (RBC) [Entitic vol] 84.1 fL Normal 80.0-100.0 [facility] Comment on above: Order Comment: Speci men Type: BLOOD SPECIMEN [facility] Address: [address] [place] [address] Performed By: #### 2 4362-6 #### [facility] CLIA [id number] [address] [place] [address] [place] Nucleated RBC (Bld) [#/Vol] 10*3/uL Normal <0.01 [facility] Comment on above: Order Comment: Speci men Type: BLOOD SPECIMEN Ordering Facility: [facility] Address: [address] [place] [address] Performed By: #### 2 4362-6 #### [facility] CLIA [id number] [address] [place] [address] [place] Platelet mean volume (Bld) [Entitic vol] 10.1 fL Normal 9.0-12.7 [facility] Comment on above: Order Comment: Speci men Type: BLOOD SPECIMEN Ordering Facility: [facility] Address: [address] [place] [address] Performed By: #### 2 4362-6 #### [facility] CLIA [id number] [address] [place] [address] [place] Platelets (Bld) [#/Vol] 386 10*3/uL Normal 150-400 [facility] Comment on above: Order Comment: Speci men Type: BLOOD SPECIMEN Ordering Facility: [facility] Address: [address] [place] [address] Performed By: #### 2 4362-6 #### [facility] CLIA [id number] [address] [place] [address] [place] RBC (Bld) [#/Vol] 4.09 10*6/uL Normal 3.90-5.20 [facility] Comment on above: Order Comment: Speci men Type: BLOOD SPECIMEN Ordering Facility: [facility] Address: [address] [place] [address] Performed By: #### 2 4362-6 #### [facility] CLIA [id number] [address] [place] [address] [place] WBC (Bld) [#/Vol] 10.20 10*3/uL Normal 3.70-11.00 [facility] Comment on above: Order Comment: Speci men Type: BLOOD SPECIMEN Ordering Facility: [facility] Address: [address] [place] [address] Performed By: #### 2 4362-6 #### [facility] CLIA [id number] [address] [place] [address] [place] Renal function 2000 panelon 07-15-2024 Albumin [Mass/Vol] 3.5 g/dL Low 3.9-4.9 [facility] Comment on above: Order Comment: Speci men Type: BLOOD SPECIMENOrdering Facility: [facility] Address: [address] [place] [address] Performed By: #### 2 4362-6 ####[facility] [id number] [place] [address] [place] Anion gap [Moles/Vol] 12 mmol/L Normal 8-15 [facility] Comment on above: Order Comment: Speci men Type: BLOOD SPECIMENOrdering Facility: [facility] Address: [address] [place] [address] Performed By: #### 2 4362-6 ####[facility] [id number] [place] [address] [place] Calcium [Mass/Vol] 9.1 mg/dL Normal 8.5-10.2 [facility] Comment on above: Order Comment: Speci men Type: BLOOD SPECIMENOrdering Facility: [facility] Address: [address] [place] [address] Performed By: #### 2 4362-6 ####[facility] [id number] [place] [address] [place] Chloride [Moles/Vol] 101 mmol/L Normal 98-107 [facility] Comment on above: Order Comment: Speci men Type: BLOOD SPECIMENOrdering Facility: [facility] Address: [address] [place] [id number] Performed By: #### 2 4362-6 ####[facility] [id number] [place] [address] [place] CO2 [Moles/Vol] 24 mmol/L Normal 22-30 [facility] Comment on above: Order Comment: Speci men Type: BLOOD SPECIMENOrdering Facility: [facility] Address: [address] [place] [address] Performed By: #### 2 4362-6 ####[facility] [id number] [place] [address] [place] Creatinine [Mass/Vol] 0.96 mg/dL Normal 0.58-0.96 [facility] Comment on above: Order Comment: Speci men Type: BLOOD SPECIMENOrdering Facility: [facility] Address: [address] [place] [address] Performed By: #### 2 4362-6 ####[facility] [id number] [place] [address] [place] Creatinine and Glomerular filtration rate.predicted panel (S/P/Bld) 58 mL/min/1.73m??? Low >=60 [facility] Comment on above: Order Comment: Speci men Type: BLOOD SPECIMENOrdering Facility: [facility] Address: [address] [place] [address] Result Comment: Isa mated Glomerular Filtration Rate [...] actual GFR. Performed By: #### 2 4362-6 ####[facility] [id number] [place] [address] [place] Glucose [Mass/Vol] 93 mg/dL Normal 74-99 [facility] Comment on above: Order Comment: Speci men Type: BLOOD SPECIMENOrdering Facility: [facility] Address: [address] [place] [address] Result Comment: The [place] Diabetes [employer] (ADA) provides guidance for cutoff [...] Standards of Medical Care in Diabetes 2016, [place] [employer]. Diabetes Care. 2016.39(Suppl 1). Performed By: #### 2 4362-6 ####[facility] [id number] [place] [address] [place] Phosphate [Mass/Vol] 3.1 mg/dL Normal 2.7-4.8 [facility] Comment on above: Order Comment: Rhina mason Type: BLOOD SPECIMENOrdering Facility: [facility] Address: [address] [place] [address] Performed By: #### 2 4362-6 ####[facility] [id number] [place] [address] [place] Potassium [Moles/Vol] 4.3 mmol/L Normal 3.7-5.1 [facility] Comment on above: Order Comment: Samiri men Type: BLOOD SPECIMENOrdering Facility: [facility] Address: [address] [place] [address] Performed By: #### 2 4362-6 ####[facility] [id number] [place] [address] [place] Sodium [Moles/Vol] 137 mmol/L Normal 136-144 [facility] Comment on above: Order Comment: Speci men Type: BLOOD SPECIMENOrdering Facility: [facility] Address: [address] [place] [address] Performed By: #### 2 4362-6 ####[facility] [id number] [place] [address] [place] Urea nitrogen [Mass/Vol] 19 mg/dL Normal 7-21 [facility] Comment on above: Order Comment: Speci men Type: BLOOD SPECIMENOrdering Facility: [facility] Address: [address] [place] [address] Performed By: #### 2 4362-6 ####[facility] [id number] [place] [address] [place] CBC panel Auto (Bld)on 07-14 Erythrocyte distribution width (RBC) [Ratio] 17.9 % High 11.5-15.0 [facility] Comment on above: Order Comment: Speci men Type: BLOOD SPECIMEN Ordering Facility: [facility] Address: [address] [place] [address] Performed By: #### 2 4362-6 #### [facility] CLIA [id number] [address] [place] [address] [place] Hematocrit (Bld) [Volume fraction] 33.8 % Low 36.0-46.0 [facility] Comment on above: Order Comment: Speci men Type: BLOOD SPECIMEN Ordering Facility: [facility] Address: [address] [place] [address] Performed By: #### 2 4362-6 #### [facility] CLIA [id number] [address] [place] [address] [place] Hemoglobin (Bld) [Mass/Vol] 10.7 g/dL Low 11.5-15.5 [facility] Comment on above: Order Comment: Speci men Type: BLOOD SPECIMEN Ordering Facility: [facility] Address: [address] [place] [address] Performed By: #### 2 4362-6 #### [facility] CLIA [id number] [address] [place] [address] [place] MCH (RBC) [Entitic mass] 26.4 pg Normal 26.0-34.0 [facility] Comment on above: Order Comment: Speci men Type: BLOOD SPECIMEN Ordering Facility: [facility] Address: [address] [place] [address] Performed By: #### 2 4362-6 #### [facility] CLIA [id number] [address] [place] [address] [place] MCHC (RBC) [Mass/Vol] 31.7 g/dL Normal 30.5-36.0 [facility] Comment on above: Order Comment: Speci men Type: BLOOD SPECIMEN Ordering Facility: [facility] Address: [address] [place] [address] Performed By: #### 2 4362-6 #### [facility] CLIA [id number] [address] [place] [address] [place] MCV (RBC) [Entitic vol] 83.5 fL Normal 80.0-100.0 [facility] Comment on above: Order Comment: Speci men Type: BLOOD SPECIMEN Ordering Facility: [facility] Address: [address] [place] [address] Performed By: #### 2 4362-6 #### [facility] CLIA [id number] [address] [place] [address] [place] Nucleated RBC (Bld) [#/Vol] 10*3/uL Normal <0.01 [facility] Comment on above: Order Comment: Speci men Type: BLOOD SPECIMEN Ordering Facility: [facility] Address: [address] [place] [address] Performed By: #### 2 4362-6 #### [facility] CLIA [id number] [address] [place] [address] [place] Platelet mean volume (Bld) [Entitic vol] 10.3 fL Normal 9.0-12.7 [facility] Comment on above: Order Comment: Speci men Type: BLOOD SPECIMEN Ordering Facility: [facility] Address: [address] [place] [address] Performed By: #### 2 4362-6 #### [facility] CLIA [id number] [address] [place] [address] [place] Platelets (Bld) [#/Vol] 345 10*3/uL Normal 150-400 [facility] Comment on above: Order Comment: Speci men Type: BLOOD SPECIMEN Ordering Facility: [facility] Address: [address] [place] [address] Performed By: #### 2 4362-6 #### [facility] CLIA [id number] [address] [place] [address] [place] RBC (Bld) [#/Vol] 4.05 10*6/uL Normal 3.90-5.20 [facility] Comment on above: Order Comment: Speci men Type: BLOOD SPECIMEN Ordering Facility: [facility] Address: [address] [place] [address] Performed By: #### 2 4362-6 #### [facility] CLIA [id number] [address] [place] [address] [place] WBC (Bld) [#/Vol] 11.07 10*3/uL High 3.70-11.00 [facility] Comment on above: Order Comment: Speci men Type: BLOOD SPECIMEN Ordering Facility: [facility] Address: [address] [place] [address] Performed By: #### 2 4362-6 #### [facility] CLIA [id number] [address] [place] [address] [place] Renal function 2000 panelon 07-14-2024 Albumin [Mass/Vol] 3.5 g/dL Low 3.9-4.9 [facility] Comment on above: Order Comment: Speci men Type: BLOOD SPECIMEN Ordering Facility: [facility] Address: [address] [place], [place] [address] Performed By: #### 2 4362-6 #### [facility] CLIA [id number] [address] [place] [address] [place] Anion gap [Moles/Vol] 14 mmol/L Normal 8-15 [facility] Comment on above: Order Comment: Speci men Type: BLOOD SPECIMEN Ordering Facility: [facility] Address: [address] [place] [address] Performed By: #### 2 4362-6 #### [facility] CLIA [id number] [address] [place] [address] [place] Calcium [Mass/Vol] 9.1 mg/dL Normal 8.5-10.2 [facility] Comment on above: Order Comment: Speci men Type: BLOOD SPECIMEN Ordering Facility: [facility] Address: [address] [place], [place] [address] Performed By: #### 2 4362-6 #### [facility] CLIA [id number] [address] [place] [address] [place] Chloride [Moles/Vol] 98 mmol/L Normal 98-107 [facility] Comment on above: Order Comment: Speci men Type: BLOOD SPECIMEN Ordering Facility: [facility] Address: [address] [place] [address] Performed By: #### 2 4362-6 #### [facility] CLIA [id number] [address] [place] [address] [place] CO2 [Moles/Vol] 22 mmol/L Normal 22-30 [facility] Comment on above: Order Comment: Speci men Type: BLOOD SPECIMEN Ordering Facility: [facility] Address: [address] [place], [place] [address] Performed By: #### 2 4362-6 #### [facility] CLIA [id number] [facility] [place] [address] [place] Creatinine [Mass/Vol] 1.01 mg/dL High 0.58-0.96 [facility] Comment on above: Order Comment: Rhina mason Type: BLOOD SPECIMEN Ordering Facility: [facility] Address: [address] [place] [address] Performed By: #### 2 4362-6 #### [facility] CLIA [id number] [address] [place] [address] [place] Creatinine and Glomerular filtration rate.predicted panel (S/P/Bld) 55 mL/min/1.73m??? Low >=60 [facility] Comment on above: Order Comment: Rhina mason Type: BLOOD SPECIMEN Ordering Facility: [facility] Address: [address] [place] [address] Result Comment: Isa mated Glomerular Filtration Rate [...] GFR. Performed By: #### 2 4362-6 #### [facility] CLIA [id number] [address] [place] [address] [place] Glucose [Mass/Vol] 131 mg/dL High 74-99 [facility] Comment on above: Order Comment: Rhina mason Type: BLOOD SPECIMEN Ordering Facility: [facility] Address: [address] [place] [address] Result Comment: The [place] Diabetes Association (ADA) provides guidance for cutoff [...] Standards of Medical Care in Diabetes 2016, [place] [employer]. Diabetes Care. 2016.39(Suppl 1). Performed By: #### 2 4362-6 #### [facility] CLIA [id number] [address] [place] [address] [place] Phosphate [Mass/Vol] 3.5 mg/dL Normal 2.7-4.8 [facility] Comment on above: Order Comment: Speci men Type: BLOOD SPECIMEN Ordering Facility: [facility] Address: [address] [place] [address] Performed By: #### 2 4362-6 #### [facility] CLIA [id number] [address] [place] [address] [place] Potassium [Moles/Vol] 4.1 mmol/L Normal 3.7-5.1 [facility] Comment on above: Order Comment: Speci men Type: BLOOD SPECIMEN Ordering Facility: [facility] Address: [address] [place] [address] Performed By: #### 2 4362-6 #### [facility] CLIA [id number] [address] [place] [address] [place] Sodium [Moles/Vol] 134 mmol/L Low 136-144 [facility] Comment on above: Order Comment: Speci men Type: BLOOD SPECIMEN Ordering Facility: [facility] Address: [address] [place] [address] Performed By: #### 2 4362-6 #### [facility] CLIA [id number] [address] [place] [address] [place] Urea nitrogen [Mass/Vol] 19 mg/dL Normal 7-21 [facility] Comment on above: Order Comment: Speci men Type: BLOOD SPECIMEN Ordering Facility: [facility] Address: [address] [place] [address] Performed By: #### 2 4362-6 #### [facility] CLIA [id number] [address] [place] [address] [place] [address] [place] ANES POSTPROC EVALon 024 ANES POSTPROC EVAL HNO ID: [id number] Author: SIERRA FALK MD Service: ? Author Type: Anesthesiologist Type: Anesthesia Postprocedure Evaluation Filed: 07/13/2024 15:57 Note Text: POST ANESTHESIA EVALUATION NOTE : 1940 Procedure Summary Date: 07/13/24 Room / Location: [address] Anesthesia Start: 1222 Anesthesia Stop: 1337 [...] July 13, 2024 TIME: 3:57 PM CSN: [id number] Normal [facility] ANES PRE-OPon 07-13-2024 ANES PRE-OP HNO ID: [id number] Author: SIERRA FALK MD Service: ? Author Type: Anesthesiologist Type: Anesthesia Preprocedure Evaluation Filed: 07/13/2024 09:44 Note Text: ANESTHESIOLOGY DAY OF SURGERY NOTE : 1940 Procedure Information Date/Time: 07/13/24 1404 Procedure: ASPIRATION VITREOUS, CHOROIDAL FLUID, PARS PLANA APPROACH (Right: Eye) Location: [place] [address] / [facility] Surgeons: Savana [...] 0.5 tablets by mouth every 12 hours. fouqcyitber-wtbxjkwtw-g ilanter (TRELEGY ELLIPTA) 100-62.5-25 mcg inhalation powder Inhale 1 Puff as instructed once daily. acetaminophen (TYLENOL) 325 mg tablet Take 2 tablets by mouth every 6 hours as needed for pain. ascorbic acid (more content not included)... Normal [facility] CASE MANAGEM HNO ID: [id number] Author: REBECA BELLE LSW Service: ? Author Type: Obstetrics Tech Type: Care Mgt Progress Note Filed: 07/13/2024 16:25 Note Text: CARE MANAGEMENT WEEKEND PLANNING NOTE NO WEEKEND DISCHARGE Disposition: Long Term Facility Anticipated Discharge Date: TBD CM followed up with pt's daughter for SNF choices. Pt is currently in the OR- unable to send referrals in careport or complete "edit note" side bar. 1)[facility] 2)[facility] 3)[facility] 4)[facility] 5)[facility] Will need accepting SNF and precert prior to dc. UPDATE 4:24pm: Referrals sent; awaiting response. 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 SIGNATURE: SHAQUILLE Nuñez PATIENT NAME: Mel Castillo DATE: July 13, 2024 TIME: 3:09 PM PAGER/CONTACT #: [phone] Normal [facility] CBC panel Auto (Bld)on 07-13 Erythrocyte distribution width (RBC) [Ratio] 17.6 % High 11.5-15.0 [facility] Comment on above: Order Comment: Speci men Type: BLOOD SPECIMENOrdering Facility: [facility] Address: [address] [place] [address] Performed By: #### 5 8410-2 ####[facility] [id number] [place] [address] [place] Hematocrit (Bld) [Volume fraction] 34.5 % Low 36.0-46.0 [facility] Comment on above: Order Comment: Speci men Type: BLOOD SPECIMENOrdering Facility: [facility] Address: [address] [place] [address] Performed By: #### 5 8410-2 ####[facility] [id number] [place] [address] [place] Hemoglobin (Bld) [Mass/Vol] 10.8 g/dL Low 11.5-15.5 [facility] Comment on above: Order Comment: Speci men Type: BLOOD SPECIMENOrdering Facility: [facility] Address: [address] [place] [address] Performed By: #### 5 8410-2 ####[facility] [id number] [place] [address] [place] MCH (RBC) [Entitic mass] 26.1 pg Normal 26.0-34.0 [facility] Comment on above: Order Comment: Speci men Type: BLOOD SPECIMENOrdering Facility: [facility] Address: [address] [place] [address] Performed By: #### 5 8410-2 ####[facility] [id number] [place] [address] [place] MCHC (RBC) [Mass/Vol] 31.3 g/dL Normal 30.5-36.0 [facility] Comment on above: Order Comment: Speci men Type: BLOOD SPECIMENOrdering Facility: [facility] Address: [address] [place] [address] Performed By: #### 5 8410-2 ####[facility] [id number] [place] [address] [place] MCV (RBC) [Entitic vol] 83.3 fL Normal 80.0-100.0 [facility] Comment on above: Order Comment: Speci men Type: BLOOD SPECIMENOrdering Facility: [facility] Address: [address] [place] [address] Performed By: #### 5 8410-2 ####[facility] [id number] [place] [address] [place] Nucleated RBC (Bld) [#/Vol] 10*3/uL Normal <0.01 [facility] Comment on above: Order Comment: Speci men Type: BLOOD SPECIMENOrdering Facility: [facility] Address: [address] [place] [address] Performed By: #### 5 8410-2 ####[facility] [id number] [place] [address] [place] Platelet mean volume (Bld) [Entitic vol] 9.7 fL Normal 9.0-12.7 [facility] Comment on above: Order Comment: Speci men Type: BLOOD SPECIMENOrdering Facility: [facility] Address: [address] [place] [address] Performed By: #### 5 8410-2 ####[facility] [id number] [place] [address] [place] Platelets (Bld) [#/Vol] 334 10*3/uL Normal 150-400 [facility] Comment on above: Order Comment: Speci men Type: BLOOD SPECIMENOrdering Facility: [facility] Address: [address] [place] [address] Performed By: #### 5 8410-2 ####[facility] [id number] [place] [address] [place] RBC (Bld) [#/Vol] 4.14 10*6/uL Normal 3.90-5.20 [facility] Comment on above: Order Comment: Speci men Type: BLOOD SPECIMENOrdering Facility: [facility] Address: [address] [place] [address] Performed By: #### 5 8410-2 ####[facility] [id number] [place] [address] [place] WBC (Bld) [#/Vol] 10.74 10*3/uL Normal 3.70-11.00 [facility] Comment on above: Order Comment: Speci men Type: BLOOD SPECIMENOrdering Facility: [facility] Address: [address] [place] [address] Performed By: #### 5 8410-2 ####[facility] [id number] [place] [address] [place] ECHO WITH AGITATED SALINE CO NTRASTon 07-13-2024 ECHO WITH AGITATED SALINE CONTRAST Echocardiography Report: Transthoracic Echo [facility] Bedside Date of service: 07/13/2024 3:54:27 PM DRIVER Ordering physician: FELICIA LEVY Indication: Limited KYLE [...] * * * Final * * * [email or web address] [facility] : [id number] Normal [facility] 07-13-2024 NUTRITION HNO ID: [id number] Author: PAWAN PRESLEY DTR Service: Nutrition Therapy Author Type: Control Systems Specialist Type: Nutrition Filed: 07/13/2024 11:50 Note Text: NUTRITION THERAPY RELIEF WORKER NOTE SERVICE DATE: 07/13/2024 SERVICE TIME: 1045 Visit Type: Length of Stay Evaluation Goals Met: Not Met The patient was not available at time of visit. Per [facility], she has not met nutritional goals. [...] supplements Allergies: No food allergies noted per [facility]. MNT Billing: $ Routine Care : 1-15 minutes SIGNATURE: Pawan Presley DTR PATIENT NAME: Mel Castillo DATE: July 13, 2024 TIME: 11:49 AM Normal [facility] OPERATIVE NOon 07-13-2024 OPERATIVE NO HNO ID: [id number] Author: SAVANA LOPEZ MD Service: Ophthalmology Author Type: Physician Type: Operative Report Filed: 07/13/2024 13:32 Note Text: [place] [address] [place] [facility] OPERATIVE REPORT LOG ID: [id number] Surgery/Procedure Date: 07/13/2024 Incision/Procedure Start Time: 12:43 PM Incision Close/Procedure End Time: 1:32 PM NAME: Mel Pop [facility] #: [id number] SURGEON(S) AND SHIPFITTER(S): Surgeons and Role: * Savana Lopez MD [...] MD Vitreoretinal Surgery AND Ocular Inflammatory Diseases [facility] Normal [facility] Renal function 2000 panelon 07-13-2024 Albumin [Mass/Vol] 3.5 g/dL Low 3.9-4.9 [facility] Comment on above: Order Comment: Speci men Type: BLOOD SPECIMENOrdering Facility: [facility] Address: [address] [place] [address] Performed By: #### 2 4362-6 ####[facility] [id number] [place] [address] [place] Anion gap [Moles/Vol] 10 mmol/L Normal 8-15 [facility] Comment on above: Order Comment: Speci men Type: BLOOD SPECIMENOrdering Facility: [facility] Address: [address] [place] [address] Performed By: #### 2 4362-6 ####[facility] [id number] [place] [address] [place] Calcium [Mass/Vol] 9.3 mg/dL Normal 8.5-10.2 [facility] Comment on above: Order Comment: Speci men Type: BLOOD SPECIMENOrdering Facility: [facility] Address: [address] [place] [address] Performed By: #### 2 4362-6 ####[facility] [id number] [place] [address] [place] Chloride [Moles/Vol] 100 mmol/L Normal 98-107 [facility] Comment on above: Order Comment: Speci men Type: BLOOD SPECIMENOrdering Facility: [facility] Address: [address] [place] [address] Performed By: #### 2 4362-6 ####[facility] [id number] [place] [address] [place] CO2 [Moles/Vol] 27 mmol/L Normal 22-30 [facility] Comment on above: Order Comment: Speci men Type: BLOOD SPECIMENOrdering Facility: [facility] Address: [address] [place] [address] Performed By: #### 2 4362-6 ####[facility] [id number] [place] [address] [place] Creatinine [Mass/Vol] 0.92 mg/dL Normal 0.58-0.96 [facility] Comment on above: Order Comment: Speci men Type: BLOOD SPECIMENOrdering Facility: [facility] Address: [address] [place] [address] Performed By: #### 2 4362-6 ####[facility] [id number] [place] [address] [place] Creatinine and Glomerular filtration rate.predicted panel (S/P/Bld) 62 mL/min/1.73m??? Normal >=60 [facility] Comment on above: Order Comment: Speci men Type: BLOOD SPECIMENOrdering Facility: [facility] Address: [address] [place] [address] Result Comment: Isa mated Glomerular Filtration Rate [...] actual GFR. Performed By: #### 2 4362-6 ####[facility] [id number] [place] [address] [place] Glucose [Mass/Vol] 103 mg/dL High 74-99 [facility] Comment on above: Order Comment: Rhina mason Type: BLOOD SPECIMENOrdering Facility: [facility] Address: [address] [place] [address] Result Comment: The [place] Diabetes Association (ADA) provides guidance for cutoff [...] Standards of Medical Care in Diabetes 2016, [place] [employer]. Diabetes Care. 2016.39(Suppl 1). Performed By: #### 2 4362-6 ####[facility] [id number] [place] [id number] [place] Phosphate [Mass/Vol] 3.5 mg/dL Normal 2.7-4.8 [facility] Comment on above: Order Comment: Rhina mason Type: BLOOD SPECIMENOrdering Facility: [facility] Address: [address] [place] [address] Performed By: #### 2 4362-6 ####[facility] [id number] [address] [address] [place] Potassium [Moles/Vol] 4.2 mmol/L Normal 3.7-5.1 [facility] Comment on above: Order Comment: Speci men Type: BLOOD SPECIMENOrdering Facility: [facility] Address: [address] [place] [address] Performed By: #### 2 4362-6 ####[facility] [id number] [address] [address] [place] Sodium [Moles/Vol] 137 mmol/L Normal 136-144 [facility] Comment on above: Order Comment: Speci men Type: BLOOD SPECIMENOrdering Facility: [facility] Address: [address] [place] [address] Performed By: #### 2 4362-6 ####[facility] [id number] [place] [address] [place] Urea nitrogen [Mass/Vol] 12 mg/dL Normal 7-21 [facility] Comment on above: Order Comment: Speci men Type: BLOOD SPECIMENOrdering Facility: [facility] Address: [address] [place] [address] Performed By: #### 2 4362-6 ####[facility] [id number] [place] [address] [place] BSCAN OD (RIGHT EYE)on 07-12 [facility] Radiology Study observation (narrative) [facility] CBC panel Auto (Bld)on 07-12 Erythrocyte distribution width (RBC) [Ratio] 17.8 % High 11.5-15.0 [facility] Comment on above: Order Comment: Speci men Type: BLOOD SPECIMENOrdering Facility: [facility] Address: [address] [place], [place] [address] Performed By: #### 5 8410-2 ####[facility] [id number] [place] [id number] [place] Hematocrit (Bld) [Volume fraction] 34.7 % Low 36.0-46.0 [facility] Comment on above: Order Comment: Speci men Type: BLOOD SPECIMENOrdering Facility: [facility] Address: [address] [place] [address] Performed By: #### 5 8410-2 ####[facility] [id number] [place] [address] [place] Hemoglobin (Bld) [Mass/Vol] 10.6 g/dL Low 11.5-15.5 [facility] Comment on above: Order Comment: Speci men Type: BLOOD SPECIMENOrdering Facility: [facility] Address: [address] [place] [address] Performed By: #### 5 8410-2 ####[facility] [id number] [place] [address] [place] MCH (RBC) [Entitic mass] 26.4 pg Normal 26.0-34.0 [facility] Comment on above: Order Comment: Speci men Type: BLOOD SPECIMENOrdering Facility: [facility] Address: [address] [place] [address] Performed By: #### 5 8410-2 ####[facility] [id number] [place] [address] [place] MCHC (RBC) [Mass/Vol] 30.5 g/dL Normal 30.5-36.0 [facility] Comment on above: Order Comment: Speci men Type: BLOOD SPECIMENOrdering Facility: [facility] Address: [address] [place] [address] Performed By: #### 5 8410-2 ####[facility] [id number] [place] [address] [place] MCV (RBC) [Entitic vol] 86.3 fL Normal 80.0-100.0 [facility] Comment on above: Order Comment: Speci men Type: BLOOD SPECIMENOrdering Facility: [facility] Address: [address] [place] [address] Performed By: #### 5 8410-2 ####[facility] [id number] [place] [address] [place] Nucleated RBC (Bld) [#/Vol] 10*3/uL Normal <0.01 [facility] Comment on above: Order Comment: Speci men Type: BLOOD SPECIMENOrdering Facility: [facility] Address: [address] [place] [address] Performed By: #### 5 8410-2 ####[facility] [id number] [place] [address] [place] Platelet mean volume (Bld) [Entitic vol] 9.9 fL Normal 9.0-12.7 [facility] Comment on above: Order Comment: Speci men Type: BLOOD SPECIMENOrdering Facility: [facility] Address: [address] [place] [address] Performed By: #### 5 8410-2 ####[facility] [id number] [place] [address] [place] Platelets (Bld) [#/Vol] 301 10*3/uL Normal 150-400 [facility] Comment on above: Order Comment: Speci men Type: BLOOD SPECIMENOrdering Facility: [facility] Address: [address] [place] [address] Performed By: #### 5 8410-2 ####[facility] [id number] [place] [address] [place] RBC (Bld) [#/Vol] 4.02 10*6/uL Normal 3.90-5.20 [facility] Comment on above: Order Comment: Speci men Type: BLOOD SPECIMENOrdering Facility: [facility] Address: [address] [place] [address] Performed By: #### 5 8410-2 ####[facility] [id number] [place] [address] [place] WBC (Bld) [#/Vol] 10.07 10*3/uL Normal 3.70-11.00 [facility] Comment on above: Order Comment: Speci men Type: BLOOD SPECIMENOrdering Facility: [facility] Address: [address] [place] [address] Performed By: #### 5 8410-2 ####[facility] [id number] [place] [address] [place] PT EDon 07-12-2024 PT ED HNO ID: [id number] Author: GISSELL POPE RPh Service: Pharmacy Author [...] 07-12-2024 Albumin [Mass/Vol] 3.4 g/dL Low 3.9-4.9 [facility] Comment on above: Order Comment: Speci men Type: BLOOD SPECIMENOrdering Facility: [facility] Address: [address] [place] [address] Performed By: #### 2 4362-6 ####[facility] [id number] [place] [id number] [place] Anion gap [Moles/Vol] 14 mmol/L Normal 8-15 [facility] Comment on above: Order Comment: Speci men Type: BLOOD SPECIMENOrdering Facility: [facility] Address: [address] [place], [place] [address] Performed By: #### 2 4362-6 ####[facility] [id number] [address] [address] [place] Calcium [Mass/Vol] 9.3 mg/dL Normal 8.5-10.2 [facility] Comment on above: Order Comment: Speci men Type: BLOOD SPECIMENOrdering Facility: [facility] Address: [address] [place] [address] Performed By: #### 2 4362-6 ####[facility] [id number] [place] [address] [place] Chloride [Moles/Vol] 101 mmol/L Normal 98-107 [facility] Comment on above: Order Comment: Speci men Type: BLOOD SPECIMENOrdering Facility: [facility] Address: [address] [place] [address] Performed By: #### 2 4362-6 ####[facility] [id number] [place] [address] [place] CO2 [Moles/Vol] 21 mmol/L Low 22-30 [facility] Comment on above: Order Comment: Speci men Type: BLOOD SPECIMENOrdering Facility: [facility] Address: [address] [place], [place] [address] Performed By: #### 2 4362-6 ####[facility] [id number] [place] [id number] [place] Creatinine [Mass/Vol] 0.81 mg/dL Normal 0.58-0.96 [facility] Comment on above: Order Comment: Speci men Type: BLOOD SPECIMENOrdering Facility: [facility] Address: [address] [place], [place] [address] Performed By: #### 2 4362-6 ####[facility] [id number] [place] [address] [place] Creatinine and Glomerular filtration rate.predicted panel (S/P/Bld) 72 mL/min/1.73m??? Normal >=60 [facility] Comment on above: Order Comment: Rhina mason Type: BLOOD SPECIMENOrdering Facility: [facility] Address: [address] [place] [address] Result Comment: Isa mated Glomerular Filtration Rate [...] actual GFR. Performed By: #### 2 4362-6 ####[facility] [id number] [place] [address] [place] Glucose [Mass/Vol] 100 mg/dL High 74-99 [facility] Comment on above: Order Comment: Rhina mason Type: BLOOD SPECIMENOrdering Facility: [facility] Address: [address] [place] [address] Result Comment: The [place] Diabetes Association (ADA) provides guidance for cutoff [...] Standards of Medical Care in Diabetes 2016, [place] [employer]. Diabetes Care. 2016.39(Suppl 1). Performed By: #### 2 4362-6 ####[facility] [id number] [place] [address] [place] Phosphate [Mass/Vol] 2.7 mg/dL Normal 2.7-4.8 [facility] Comment on above: Order Comment: Speci men Type: BLOOD SPECIMENOrdering Facility: [facility] Address: [address] [place] [address] Performed By: #### 2 4362-6 ####[facility] [id number] [place] [address] [place] Potassium [Moles/Vol] 4.0 mmol/L Normal 3.7-5.1 [facility] Comment on above: Order Comment: Speci men Type: BLOOD SPECIMENOrdering Facility: [facility] Address: [address] [place] [address] Performed By: #### 2 4362-6 ####[facility] [id number] [place] [address] [place] Sodium [Moles/Vol] 136 mmol/L Normal 136-144 [facility] Comment on above: Order Comment: Speci men Type: BLOOD SPECIMENOrdering Facility: [facility] Address: [address] [place] [address] Performed By: #### 2 4362-6 ####[facility] [id number] [place] [address] [place] Urea nitrogen [Mass/Vol] 12 mg/dL Normal 7-21 [facility] Comment on above: Order Comment: Speci men Type: BLOOD SPECIMENOrdering Facility: [facility] Address: [address] [place] [address] Performed By: #### 2 4362-6 ####[facility] [id number] [place] [address] [place] Right eye Photo documentatio non 07-12-2024 [facility] Radiology Study observation (narrative) [facility] THERAPY NTon 07-12-2024 THERAPY NT HNO ID: [id number] Author: CANDELARIA GUZMÁN, OT/L Service: Occupational Therapy Author Type: Occupational Therapist Type: Therapy (PT/OT/Speech/Resp) Filed: 07/12/2024 12:26 Note Text: OCCUPATIONAL THERAPY MISSED VISIT SERVICE DATE: 07/12/2024 SERVICE TIME: 1226 ROOM: [place] [address] ([address]) Patient not seen due to Test / Procedure. SIGNATURE: Candelaria Guzmán OT/L PATIENT NAME: Mel Castillo DATE: July 12, 2024 TIME: 12:26 PM Normal [facility] CBC panel Auto (Bld)on 07-11 Erythrocyte distribution width (RBC) [Ratio] 17.6 % High 11.5-15.0 [facility] Comment on above: Order Comment: Speci isabella Type: BLOOD SPECIMEN [facility] Facility: [facility] Address: [address] [place] [address] Performed By: #### 5 8410-2 #### [facility] CLIA [id number] [address] [place] [address] [place] Hematocrit (Bld) [Volume fraction] 32.3 % Low 36.0-46.0 [facility] Comment on above: Order Comment: Samiri isabella Type: BLOOD SPECIMEN Order[facility] Facility: [facility] Address: [address] [place] [address] Performed By: #### 5 8410-2 #### [facility] CLIA [id number] [address] [place] [address] [place] Hemoglobin (Bld) [Mass/Vol] 10.5 g/dL Low 11.5-15.5 [facility] Comment on above: Order Comment: Speci men Type: BLOOD SPECIMEN Ordering Facility: [facility] Address: [address] [place] [address] Performed By: #### 5 8410-2 #### [facility] CLIA [id number] [address] [place] [address] [place] MCH (RBC) [Entitic mass] 27.0 pg Normal 26.0-34.0 [facility] Comment on above: Order Comment: Speci men Type: BLOOD SPECIMEN Ordering Facility: [facility] Address: [address] [place] [address] Performed By: #### 5 8410-2 #### [facility] CLIA [id number] [address] [place] [address] [place] MCHC (RBC) [Mass/Vol] 32.5 g/dL Normal 30.5-36.0 [facility] Comment on above: Order Comment: Speci men Type: BLOOD SPECIMEN [facility] Facility: [facility] Address: [address] [place] [address] Performed By: #### 5 8410-2 #### [facility] CLIA [id number] [address] [place] [address] [place] MCV (RBC) [Entitic vol] 83.0 fL Normal 80.0-100.0 [facility] Comment on above: Order Comment: Speci men Type: BLOOD SPECIMEN [facility] Facility: [facility] Address: [address] [place] [address] Performed By: #### 5 8410-2 #### [facility] CLIA [id number] [address] [place] [address] [place] Nucleated RBC (Bld) [#/Vol] 10*3/uL Normal <0.01 [facility] Comment on above: Order Comment: Speci men Type: BLOOD SPECIMEN Ordering Facility: [facility] Address: [address] [place] [address] Performed By: #### 5 8410-2 #### [facility] CLIA [id number] [address] [place] [address] [place] Platelet mean volume (Bld) [Entitic vol] 9.9 fL Normal 9.0-12.7 [facility] Comment on above: Order Comment: Speci men Type: BLOOD SPECIMEN Ordering Facility: [facility] Address: [address] [place] [address] Performed By: #### 5 8410-2 #### [facility] CLIA [id number] [address] [place] [address] [place] Platelets (Bld) [#/Vol] 289 10*3/uL Normal 150-400 [facility] Comment on above: Order Comment: Speci men Type: BLOOD SPECIMEN Ordering Facility: [facility] Address: [address] [place] [address] Performed By: #### 5 8410-2 #### [facility] CLIA [id number] [address] [place] [address] [place] RBC (Bld) [#/Vol] 3.89 10*6/uL Low 3.90-5.20 [facility] Comment on above: Order Comment: Speci men Type: BLOOD SPECIMEN Order[facility] Facility: [facility] Address: [address] [place] [address] Performed By: #### 5 8410-2 #### [facility] CLIA [id number] [address] [place] [address] [place] WBC (Bld) [#/Vol] 8.32 10*3/uL Normal 3.70-11.00 [facility] Comment on above: Order Comment: Speci men Type: BLOOD SPECIMEN [facility]ing Facility: [facility] Address: [address] [place] [address] Performed By: #### 5 8410-2 #### [facility] CLIA [id number] [address] [place] [address] [place] Renal function 2000 panelon 07-11-2024 Albumin [Mass/Vol] 3.4 g/dL Low 3.9-4.9 [facility] Comment on above: Order Comment: Speci men Type: BLOOD SPECIMENOrdering Facility: [facility] Address: [address] [place] [address] Performed By: #### 2 4362-6 ####[facility] [id number] [place] [address] [place] Anion gap [Moles/Vol] 11 mmol/L Normal 8-15 [facility] Comment on above: Order Comment: Speci men Type: BLOOD SPECIMENOrdering Facility: [facility] Address: [address] [place] [address] Performed By: #### 2 4362-6 ####[facility] [id number] [place] [address] [place] Calcium [Mass/Vol] 8.9 mg/dL Normal 8.5-10.2 [facility] Comment on above: Order Comment: Speci men Type: BLOOD SPECIMENOrdering Facility: [facility] Address: [address] [place] [address] Performed By: #### 2 4362-6 ####[facility] [id number] [place] [address] [place] Chloride [Moles/Vol] 103 mmol/L Normal 98-107 [facility] Comment on above: Order Comment: Speci men Type: BLOOD SPECIMENOrdering Facility: [facility] Address: [address] [place] [address] Performed By: #### 2 4362-6 ####[facility] [id number] [place] [address] [place] CO2 [Moles/Vol] 23 mmol/L Normal 22-30 [facility] Comment on above: Order Comment: Speci men Type: BLOOD SPECIMENOrdering Facility: [facility] Address: [address] [place] [address] Performed By: #### 2 4362-6 ####[facility] [id number] [place] [id number] [place] Creatinine [Mass/Vol] 0.91 mg/dL Normal 0.58-0.96 [facility] Comment on above: Order Comment: Speci men Type: BLOOD SPECIMENOrdering Facility: [facility] Address: [address] [place] [address] Performed By: #### 2 4362-6 ####[facility] [id number] [place] [address] [place] Creatinine and Glomerular filtration rate.predicted panel (S/P/Bld) 62 mL/min/1.73m??? Normal >=60 [facility] Comment on above: Order Comment: Rhina men Type: BLOOD SPECIMENOrdering Facility: [facility] Address: [address] [place] [address] Result Comment: Isa mated Glomerular Filtration Rate [...] actual GFR. Performed By: #### 2 4362-6 ####[facility] [id number] [place] [address] [place] Glucose [Mass/Vol] 98 mg/dL Normal 74-99 [facility] Comment on above: Order Comment: Rhina mason Type: BLOOD SPECIMENOrdering Facility: [facility] Address: [address] [place] [address] Result Comment: The [place] Diabetes Association (ADA) provides guidance for cutoff [...] Standards of Medical Care in Diabetes 2016, [place] [employer]. Diabetes Care. 2016.39(Suppl 1). Performed By: #### 2 4362-6 ####[facility] [id number] [address] [address] [place] Phosphate [Mass/Vol] 2.8 mg/dL Normal 2.7-4.8 [facility] Comment on above: Order Comment: Speci men Type: BLOOD SPECIMENOrdering Facility: [facility] Address: [address] [place] [address] Performed By: #### 2 4362-6 ####[facility] [id number] [place] [address] [place] Potassium [Moles/Vol] 3.6 mmol/L Low 3.7-5.1 [facility] Comment on above: Order Comment: Speci men Type: BLOOD SPECIMENOrdering Facility: [facility] Address: [address] [place] [address] Performed By: #### 2 4362-6 ####[facility] [id number] [place] [address] [place] Sodium [Moles/Vol] 137 mmol/L Normal 136-144 [facility] Comment on above: Order Comment: Speci men Type: BLOOD SPECIMENOrdering Facility: [facility] Address: [address] [place] [address] Performed By: #### 2 4362-6 ####[facility] [id number] [place] [address] [place] Urea nitrogen [Mass/Vol] 15 mg/dL Normal 7-21 [facility] Comment on above: Order Comment: Speci men Type: BLOOD SPECIMENOrdering Facility: [facility] Address: [address] [place] [address] Performed By: #### 2 4362-6 ####[facility] [id number] [place] [id number] [place] CASE MANAGEMon 07-10-2024 CASE MANAGEM HNO ID: [id number] Author: TREY HUGHES LSW Service: Social Work Author Type: Obstetrics Tech Type: Care Mgt Progress Note Filed: 07/10/2024 14:42 Note Text: CARE MANAGEMENT PROGRESS NOTE SERVICE DATE: 07/10/2024 SERVICE TIME: 2:38 PM LOS: 3 days Post-Acute Discharge Planning Patient Goal(s): Increase strength [place] of Choice Explained: [place] of Choice Given: Yes Post-Acute Discharge Plan: [...] Rhina mason Type: BLOOD SPECIMEN Ordering Facility: [facility] Address: [address] [place] [address] Performed By: #### 2 276-4 #### [facility] CLIA [id number] [address] [place] [address] [place] Hematocrit (Bld) [Volume fraction] 31.7 % Low 36.0-46.0 [facility] Comment on above: Order Comment: Rhina mason Type: BLOOD SPECIMEN Ordering Facility: [facility] Address: [address] [place] [address] Performed By: #### 2 276-4 #### [facility] CLIA [id number] [address] [place] [address] [place] Hemoglobin (Bld) [Mass/Vol] 9.9 g/dL Low 11.5-15.5 [facility] Comment on above: Order Comment: Rhina mason Type: BLOOD SPECIMEN Ordering Facility: [facility] Address: [address] [place], [place] [address] Performed By: #### 2 276-4 #### [facility] CLIA [id number] [address] [place] [address] [place] MCH (RBC) [Entitic mass] 26.0 pg Normal 26.0-34.0 [facility] Comment on above: Order Comment: Speci men Type: BLOOD SPECIMEN Ordering Facility: [facility] Address: [address] [place] [address] Performed By: #### 2 276-4 #### [facility] CLIA [id number] [address] [place] [address] [place] MCHC (RBC) [Mass/Vol] 31.2 g/dL Normal 30.5-36.0 [facility] Comment on above: Order Comment: Speci men Type: BLOOD SPECIMEN Ordering Facility: [facility] Address: [address] [place] [address] Performed By: #### 2 276-4 #### [facility] CLIA [id number] [address] [place] [address] [place] MCV (RBC) [Entitic vol] 83.2 fL Normal 80.0-100.0 [facility] Comment on above: Order Comment: Speci men Type: BLOOD SPECIMEN Ordering Facility: [facility] Address: [address] [place] [address] Performed By: #### 2 276-4 #### [facility] CLIA [id number] [address] [place] [address] [place] Nucleated RBC (Bld) [#/Vol] 10*3/uL Normal <0.01 [facility] Comment on above: Order Comment: Speci men Type: BLOOD SPECIMEN Ordering Facility: [facility] Address: [address] [place] [address] Performed By: #### 2 276-4 #### [facility] CLIA [id number] [address] [place] [address] [place] Platelet mean volume (Bld) [Entitic vol] 10.3 fL Normal 9.0-12.7 [facility] Comment on above: Order Comment: Speci men Type: BLOOD SPECIMEN Ordering Facility: [facility] Address: [address] [place] [address] Performed By: #### 2 276-4 #### [facility] CLIA [id number] [address] [place] [address] [place] Platelets (Bld) [#/Vol] 336 10*3/uL Normal 150-400 [facility] Comment on above: Order Comment: Speci men Type: BLOOD SPECIMEN Ordering Facility: [facility] Address: [address] [place] [address] Performed By: #### 2 276-4 #### [facility] CLIA [id number] [address] [place] [address] [place] RBC (Bld) [#/Vol] 3.81 10*6/uL Low 3.90-5.20 [facility] Comment on above: Order Comment: Speci men Type: BLOOD SPECIMEN Ordering Facility: [facility] Address: [address] [place] [address] Performed By: #### 2 276-4 #### [facility] CLIA [id number] [address] [place] [address] [place] WBC (Bld) [#/Vol] 6.35 10*3/uL Normal 3.70-11.00 [facility] Comment on above: Order Comment: Speci men Type: BLOOD SPECIMEN Ordering Facility: [facility] Address: [address] [place] [address] Performed By: #### 2 276-4 #### [facility] CLIA [id number] [address] [place] [address] [place] Renal function 2000 panelon 07-10-2024 Albumin [Mass/Vol] 3.5 g/dL Low 3.9-4.9 [facility] Comment on above: Order Comment: Speci men Type: BLOOD SPECIMEN Ordering Facility: [facility] Address: [address] [place] [address] Performed By: #### 2 4362-6 #### [facility] CLIA [id number] [address] [place] [address] [place] Anion gap [Moles/Vol] 12 mmol/L Normal 8-15 [facility] Comment on above: Order Comment: Speci men Type: BLOOD SPECIMEN Ordering Facility: [facility] Address: [address] [place] [address] Performed By: #### 2 4362-6 #### [facility] CLIA [id number] [address] [place] [address] [place] Calcium [Mass/Vol] 9.0 mg/dL Normal 8.5-10.2 [facility] Comment on above: Order Comment: Speci men Type: BLOOD SPECIMEN Ordering Facility: [facility] Address: [address] [place] [address] Performed By: #### 2 4362-6 #### [facility] CLIA [id number] [address] [place] [address] [place] Chloride [Moles/Vol] 104 mmol/L Normal 98-107 [facility] Comment on above: Order Comment: Speci men Type: BLOOD SPECIMEN Ordering Facility: [facility] Address: [address] [place] [address] Performed By: #### 2 4362-6 #### [facility] CLIA [id number] [address] [place] [address] [place] CO2 [Moles/Vol] 22 mmol/L Normal 22-30 [facility] Comment on above: Order Comment: Speci men Type: BLOOD SPECIMEN Ordering Facility: [facility] Address: [address] [place], [place] [address] Performed By: #### 2 4362-6 #### [facility] CLIA [id number] [address] [place] [address] [place] Creatinine [Mass/Vol] 0.93 mg/dL Normal 0.58-0.96 [facility] Comment on above: Order Comment: Rihna mason Type: BLOOD SPECIMEN Ordering Facility: [facility] Address: [address] [place] [address] Performed By: #### 2 4362-6 #### [facility] CLIA [id number] [address] [place] [address] [place] Creatinine and Glomerular filtration rate.predicted panel (S/P/Bld) 61 mL/min/1.73m??? Normal >=60 [facility] Comment on above: Order Comment: Rhina mason Type: BLOOD SPECIMEN Ordering Facility: [facility] Address: [address] [place] [address] Result Comment: Isa mated Glomerular Filtration Rate [...] GFR. Performed By: #### 2 4362-6 #### [facility] CLIA [id number] [address] [place] [address] [place] Glucose [Mass/Vol] 102 mg/dL High 74-99 [facility] Comment on above: Order Comment: Rhina mason Type: BLOOD SPECIMEN Ordering Facility: [facility] Address: [address] [place] [address] Result Comment: The [place] Diabetes Association (ADA) provides guidance for cutoff [...] Standards of Medical Care in Diabetes 2016, [place] [employer]. Diabetes Care. 2016.39(Suppl 1). Performed By: #### 2 4362-6 #### [facility] CLIA [id number] [address] [place] [address] [place] Phosphate [Mass/Vol] 2.6 mg/dL Low 2.7-4.8 [facility] Comment on above: Order Comment: Speci men Type: BLOOD SPECIMEN Ordering Facility: [facility] Address: [address] [place] [address] Performed By: #### 2 4362-6 #### [facility] CLIA [id number] [address] [place] [address] [place] Potassium [Moles/Vol] 3.9 mmol/L Normal 3.7-5.1 [facility] Comment on above: Order Comment: Speci men Type: BLOOD SPECIMEN Ordering Facility: [facility] Address: [address] [place] [address] Performed By: #### 2 4362-6 #### [facility] CLIA [id number] [address] [place] [address] [place] Sodium [Moles/Vol] 138 mmol/L Normal 136-144 [facility] Comment on above: Order Comment: Speci men Type: BLOOD SPECIMEN Ordering Facility: [facility] Address: [address] [place] [address] Performed By: #### 2 4362-6 #### [facility] CLIA [id number] [address] [place], [place] [address] [place] Urea nitrogen [Mass/Vol] 21 mg/dL Normal 7-21 [facility] Comment on above: Order Comment: Speci men Type: BLOOD SPECIMEN Ordering Facility: [facility] Address: [address] [place] [address] Performed By: #### 2 4362-6 #### [facility] CLIA [id number] [address] [place] THERAPY NTon 07-10-2024 THERAPY NT HNO ID: [id number] Author: SANTIAGO GUZMAN OT/L Service: Occupational Therapy Author Type: Occupational Therapist Type: Therapy (PT/OT/Speech/Resp) Filed: 07/10/2024 10:00 Note Text: Occupational Therapy Evaluation Summary SERVICE DATE: 07/10/2024 SERVICE TIME: 839 to 919 ROOM: [place] [address] OT 6 Clicks Score: 15 DISCHARGE RECOMMENDATIONS [...] "shadows" and 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 SNF rec at this time pending [...] Muscle Weakness (generalized) TREATMENT INTERVENTIONS Evaluation, Self [facility] Management (41310) Timed Code Treatment (minutes): 25 Skilled Treatment [...] Sit to Stand, Standing Balance to Improve [place] with ADLs/Self-Care, Sitting Balance to Improve [place] with ADLs/Self-Care, Life Roles/Routines/Habits THERAPEUTIC SKILLS USED [...] Speci men Type: BLOOD SPECIMEN Ordering Facility: [facility] Address: [address] [place] [address] Performed By: #### 2 4362-6 #### [facility] CLIA [id number] [address] [place] [address] [place] Hematocrit (Bld) [Volume fraction] 33.9 % Low 36.0-46.0 [facility] Comment on above: Order Comment: Speci men Type: BLOOD SPECIMEN Ordering Facility: [facility] Address: [address] [place] [address] Performed By: #### 2 4362-6 #### [facility] CLIA [id number] [address] [place] [address] [place] Hemoglobin (Bld) [Mass/Vol] 10.5 g/dL Low 11.5-15.5 [facility] Comment on above: Order Comment: Speci men Type: BLOOD SPECIMEN Ordering Facility: [facility] Address: [address] [place] [address] Performed By: #### 2 4362-6 #### [facility] CLIA [id number] [address] [place] [address] [place] MCH (RBC) [Entitic mass] 26.6 pg Normal 26.0-34.0 [facility] Comment on above: Order Comment: Speci men Type: BLOOD SPECIMEN Ordering Facility: [facility] Address: [address] [place] [address] Performed By: #### 2 4362-6 #### [facility] CLIA [id number] [address] [place] [address] [place] MCHC (RBC) [Mass/Vol] 31.0 g/dL Normal 30.5-36.0 [facility] Comment on above: Order Comment: Speci men Type: BLOOD SPECIMEN Ordering Facility: [facility] Address: [address] [place] [address] Performed By: #### 2 4362-6 #### [facility] CLIA [id number] [address] [place] [address] [place] MCV (RBC) [Entitic vol] 86.0 fL Normal 80.0-100.0 [facility] Comment on above: Order Comment: Speci men Type: BLOOD SPECIMEN Ordering Facility: [facility] Address: [address] [place] [address] Performed By: #### 2 4362-6 #### [facility] CLIA [id number] [address] [place] [address] [place] Nucleated RBC (Bld) [#/Vol] 10*3/uL Normal <0.01 [facility] Comment on above: Order Comment: Speci men Type: BLOOD SPECIMEN Ordering Facility: [facility] Address: [address] [place] [address] Performed By: #### 2 4362-6 #### [facility] CLIA [id number] [address] [place] [address] [place] Platelet mean volume (Bld) [Entitic vol] 10.4 fL Normal 9.0-12.7 [facility] Comment on above: Order Comment: Speci men Type: BLOOD SPECIMEN Ordering Facility: [facility] Address: [address] [place] [address] Performed By: #### 2 4362-6 #### [facility] CLIA [id number] [address] [place] [address] [place] Platelets (Bld) [#/Vol] 346 10*3/uL Normal 150-400 [facility] Comment on above: Order Comment: Speci men Type: BLOOD SPECIMEN Ordering Facility: [facility] Address: [address] [place] [address] Performed By: #### 2 4362-6 #### [facility] CLIA [id number] [address] [place] [address] [place] RBC (Bld) [#/Vol] 3.94 10*6/uL Normal 3.90-5.20 [facility] Comment on above: Order Comment: Speci men Type: BLOOD SPECIMEN Ordering Facility: [facility] Address: [address] [place] [address] Performed By: #### 2 4362-6 #### [facility] CLIA [id number] [address] [place] [address] [place] WBC (Bld) [#/Vol] 8.22 10*3/uL Normal 3.70-11.00 [facility] Comment on above: Order Comment: Speci men Type: BLOOD SPECIMEN Ordering Facility: [facility] Address: [address] [place] [address] Performed By: #### 2 4362-6 #### [facility] CLIA [id number] [address] [place] [address] [place] Renal function 2000 panelon 07-09-2024 Albumin [Mass/Vol] 3.6 g/dL Low 3.9-4.9 [facility] Comment on above: Order Comment: Speci men Type: BLOOD SPECIMEN Ordering Facility: [facility] Address: [address] [place] [address] Performed By: #### 2 4362-6 #### [facility] CLIA [id number] [address] [place] [address] [place] Anion gap [Moles/Vol] 11 mmol/L Normal 8-15 [facility] Comment on above: Order Comment: Speci men Type: BLOOD SPECIMEN Ordering Facility: [facility] Address: [address] [place] [address] Performed By: #### 2 4362-6 #### [facility] CLIA [id number] [address] [place], [place] [address] [place] Calcium [Mass/Vol] 8.8 mg/dL Normal 8.5-10.2 [facility] Comment on above: Order Comment: Speci men Type: BLOOD SPECIMEN Ordering Facility: [facility] Address: [address] [place] [address] Performed By: #### 2 4362-6 #### [facility] CLIA [id number] [address] [place] [address] [place] Chloride [Moles/Vol] 103 mmol/L Normal 98-107 [facility] Comment on above: Order Comment: Speci men Type: BLOOD SPECIMEN Ordering Facility: [facility] Address: [address] [place] [address] Performed By: #### 2 4362-6 #### [facility] CLIA [id number] [address] [place] [address] [place] CO2 [Moles/Vol] 22 mmol/L Normal 22-30 [facility] Comment on above: Order Comment: Speci men Type: BLOOD SPECIMEN Ordering Facility: [facility] Address: [address] [place] [address] Performed By: #### 2 4362-6 #### [facility] CLIA [id number] [address] [place] [address] [place] Creatinine [Mass/Vol] 0.94 mg/dL Normal 0.58-0.96 [facility] Comment on above: Order Comment: Speci men Type: BLOOD SPECIMEN Ordering Facility: [facility] Address: [address] [place] [address] Performed By: #### 2 4362-6 #### [facility] CLIA [id number] [address] [place] [address] [place] Creatinine and Glomerular filtration rate.predicted panel (S/P/Bld) 60 mL/min/1.73m??? Normal >=60 [facility] Comment on above: Order Comment: Rhina mason Type: BLOOD SPECIMEN Ordering Facility: [facility] Address: [address] [place] [address] Result Comment: Isa mated Glomerular Filtration Rate [...] GFR. Performed By: #### 2 4362-6 #### [facility] CLIA [id number] [address] [place] [address] [place] Glucose [Mass/Vol] 158 mg/dL High 74-99 [facility] Comment on above: Order Comment: Rhina mason Type: BLOOD SPECIMEN Ordering Facility: [facility] Address: [address] [place] [address] Result Comment: The [place] Diabetes Association (ADA) provides guidance for cutoff [...] Standards of Medical Care in Diabetes 2016, [place] [employer]. Diabetes Care. 2016.39(Suppl 1). Performed By: #### 2 4362-6 #### [facility] CLIA [id number] [address] [place] [address] [place] Phosphate [Mass/Vol] 2.0 mg/dL Low 2.7-4.8 [facility] Comment on above: Order Comment: Rhina mason Type: BLOOD SPECIMEN Ordering Facility: [facility] Address: [address] [place] [address] Performed By: #### 2 4362-6 #### [facility] CLIA [id number] [address] [place] [address] [place] Potassium [Moles/Vol] 4.1 mmol/L Normal 3.7-5.1 [facility] Comment on above: Order Comment: Speci men Type: BLOOD SPECIMEN Ordering Facility: [facility] Address: [address] [place] [address] Performed By: #### 2 4362-6 #### [facility] CLIA [id number] [address] [place] [address] [place] Sodium [Moles/Vol] 136 mmol/L Normal 136-144 [facility] Comment on above: Order Comment: Speci men Type: BLOOD SPECIMEN Ordering Facility: [facility] Address: [address] [place] [address] Performed By: #### 2 4362-6 #### [facility] CLIA [id number] [address] [place] [address] [place] Urea nitrogen [Mass/Vol] 18 mg/dL Normal 7-21 [facility] Comment on above: Order Comment: Speci men Type: BLOOD SPECIMEN Ordering Facility: [facility] Address: [address] [place] [address] Performed By: #### 2 4362-6 #### [facility] CLIA [id number] [address] [place] [address] [place] CONSULTon 07-08-2024 CONSULT HNO ID: [id number] Author: JARED GILMORE MD Service: Ophthalmology Author [...] Mon-Tue, 7 am - 5 pm, page [id number] Mon-Tue, 5 pm - 7 am, page [phone] Weekends (Fri 5 pm to Mon 7 am), page [phone] EXAM: Base Eye Exam Visual Acuity Right Left Dist sc CF at 3' Tonometry (Applanation, 8:30 AM) Right Left Pressure 14 Pupils Dark Light Shape React Right 6 (more content not included)... Normal [facility] [id number] 07-07-2024 [id number] Normal [facility] BASIC METABOLIC PANELon 12-2 Anion gap [Moles/Vol] 4 mmol/L Normal 3-13 [facility] Comment on above: Performed By: #### L AB15 ####Pre Press Operator: VELMA VALADEZ ([phone])[facility] ([facility])[address] [place] [address] Calcium [Mass/Vol] 8.7 mg/dL Low 8.8-10.0 [facility] Comment on above: Performed By: #### L AB15 ####Pre Press Operator: VELMA VALADEZ ([phone])[facility] ([facility])[address] [place] [address] [place] Chloride [Moles/Vol] 111 mmol/L High 98-107 [facility] Comment on above: Performed By: #### L AB15 ####Pre Press Operator: VELMA VALADEZ ([phone])[facility] ([facility])[address] [place] [address] CO2 [Moles/Vol] 23 mmol/L Normal 23-31 [facility] Comment on above: Performed By: #### L AB15 ####Pre Press Operator: VELMA VALADEZ ([phone])[facility] ([facility] Creatinine [Mass/Vol] 0.84 mg/dL Normal 0.57-1.11 [facility] Comment on above: Performed By: #### L AB15 ####Pre Press Operator: VELMA VALADEZ ([phone])[facility])[address] [place] [address] [place] GLOMERULAR FILTRATION RATE ML/MIN/1.73 SQ M.PREDICTED 68.6 mL/min/1.73m*2 Normal >60.0 [facility] Comment on above: Result Comment: Calc ulation based on the Chronic Kidney Disease Epidemiology Collaboration (CKD-EPI) equation refit without adjustment for race Performed By: #### L AB15 ####Pre Press Operator: VELMA VALADEZ ([phone])[address] Glucose [Mass/Vol] 102 mg/dL Normal 82-115 [facility] Comment on above: Performed By: #### L AB15 ####Pre Press Operator: VELMA VALADEZ ([phone])[address] Potassium [Moles/Vol] 4.0 mmol/L Normal 3.5-5.1 [facility] Comment on above: Result Comment: [facility] potassium values may be up to 0.5 mmol/L lower than serum values. Performed By: #### L AB15 ####Pre Press Operator: VELMA VALADEZ ([phone])[place] [address] [place] Sodium [Moles/Vol] 138 mmol/L Normal 136-145 [facility] Comment on above: Performed By: #### L AB15 ####Pre Press Operator: VELMA [phone])[address] Urea nitrogen [Mass/Vol] 19 mg/dL Normal 9-23 [facility] Comment on above: Performed By: #### L AB15 ####Pre Press Operator: VELMA [id number])[facility] ([facility])[address] [place] [address] Basic metabolic 1998 panelon 07-07-2024 Anion gap [Moles/Vol] 4 mmol/L 3 - 13 mmol/L [facility] Calcium [Mass/Vol] 8.7 mg/dL Low 8.8 - 10. 0 mg/dL [facility] Chloride [Moles/Vol] 111 mmol/L High 98 - 10 7 mmol/L [facility] CO2 [Moles/Vol] 23 mmol/L 23 - 31 mmol/L [facility] Creatinine [Mass/Vol] 0.84 mg/dL 0.57 - 1.11 mg/dL [facility] GFR/1.73 sq M.predicted (S/P/Bld) [Vol rate/Area] 68.6 mL/min - PINF [facility] Comment on above: Calculation based on the Chronic Kidney Disease Epidemiology Collaboration (CKD-EPI) equation refit without adjustment for race Glucose [Mass/Vol] 102 mg/dL 82 - 115 mg/dL [facility] Interpretation and review of laboratory results Abnormal [facility] Potassium [Moles/Vol] 4 mmol/L 3.5 - 5.1 mmol/L [facility] Comment on above: Plasma potassium chris ues may be up to 0.5 mmol/L lower than serum values. Sodium [Moles/Vol] 138 mmol/L 136 - 145 mmol/L [facility] Urea nitrogen [Mass/Vol] 19 mg/dL 9 - 23 mg/dL [facility] CBC W Auto Differential pane l (Bld)Ordered By: Devika Eisenberg on 07-07-2024 Basophils (Bld) [#/Vol] 0 10*3/uL 0.0 - 0.2 10*3/uL [facility] Basophils/100 WBC (Bld) 0.4 % 0.0 - 2.0 % [facility] Eosinophils (Bld) [#/Vol] 0.1 10*3/uL 0.0 - 0.5 10*3/uL [facility] Eosinophils/100 WBC (Bld) 1.3 % 0.0 - 6.0 % [facility] Erythrocyte distribution width (RBC) [Ratio] 17.6 % High 11.5 - 15.0 % [facility] Hematocrit (Bld) [Volume fraction] 29.9 % Low 35.0 - 47.0 % [facility] Hemoglobin (Bld) [Mass/Vol] 9.1 g/dL Low 11.7 - 16.0 g/dL [facility] Immature granulocytes (Bld) [#/Vol] 0 10*3/uL NINF - 0.1 10*3/uL [facility] Immature granulocytes/100 WBC (Bld) 0.2 % 0.0 - 2.0 % [facility] Interpretation and review of laboratory results Abnormal [facility] Lymphocytes (Bld) [#/Vol] 1.2 10*3/uL 1.0 - 4.3 10*3/uL [facility] Lymphocytes/100 WBC (Bld) 22 % 15.0 - 45.0 % [facility] MCH (RBC) [Entitic mass] 25.9 pg Low 26.0 - 34.0 pg [facility] MCHC (RBC) [Mass/Vol] 30.4 % Low 30.5 - 36.0 % [facility] MCV (RBC) [Entitic vol] 84.9 fL 77.0 - 99.0 fL [facility] Monocytes (Bld) [#/Vol] 0.6 10*3/uL 0.0 - 0.9 10*3/uL [facility] Monocytes/100 WBC (Bld) 10 % 5.0 - 13.0 % [facility] Neutrophils (Bld) [#/Vol] 3.7 10*3/uL 1.8 - 7.5 10*3/uL [facility] Neutrophils/100 WBC (Bld) 66.1 % 38.0 - 82.0 % [facility] Nucleated RBC/100 WBC (Bld) [Ratio] 0 % [facility] Platelet mean volume (Bld) [Entitic vol] 9.8 fL 9.0 - 12.7 fL [facility] Platelets (Bld) [#/Vol] 301 10*3/uL 140 - 440 10*3/uL [facility] RBC (Bld) [#/Vol] 3.52 10*6/uL Low 3.80 - 5.2 0 10*6/uL [facility] WBC (Bld) [#/Vol] 5.6 10*3/uL 3.6 - 10.7 10*3/uL [facility] CBC WITH AUTO DIFFERENTIALon 07-07-2024 Basophils (Bld) [#/Vol] 0.0 10*3/uL Normal 0.0-0.2 [facility] Comment on above: Performed By: #### L [id number] ####Pre Press Operator: VELMA VALADEZ ([phone])[facility])[address] [place] [address] Basophils/100 WBC (Bld) 0.4 % Normal 0.0-2.0 [facility] Comment on above: Performed By: #### L [id number] ####Pre Press Operator: VELMA VALADEZ ([phone])[facility])[address] [place] [address] Eosinophils (Bld) [#/Vol] 0.1 10*3/uL Normal 0.0-0.5 [facility] Comment on above: Performed By: #### L [id number] ####Pre Press Operator: VELMA VALADEZ ([phone])[facility])[address] [place] [address] Eosinophils/100 WBC (Bld) 1.3 % Normal 0.0-6.0 [facility] Comment on above: Performed By: #### L [id number] ####Pre Press Operator: VELMA VALADEZ ([phone])[facility])[address] [place] [address] Erythrocyte distribution width (RBC) [Ratio] 17.6 % High 11.5-15.0 [facility] Comment on above: Performed By: #### L [id number] ####Pre Press Operator: VELMA VALADEZ ([phone])[facility])[address] [place] [address] Hematocrit (Bld) [Volume fraction] 29.9 % Low 35.0-47.0 [facility] Comment on above: Performed By: #### L [id number] ####Pre Press Operator: VELMA VALADEZ ([phone])[facility])[address] [place] [address] Hemoglobin (Bld) [Mass/Vol] 9.1 g/dL Low 11.7-16.0 [facility] Comment on above: Performed By: #### L [id number] ####Pre Press Operator: VELMA VALADEZ ([id number])[facility])[address] [place] [address] IMMATURE GRANS % 0.2 % Normal 0.0-2.0 [facility] Comment on above: Performed By: #### L [id number] ####Pre Press Operator: VELMA VALADEZ ([phone])[facility])[address] [place] [address] IMMATURE GRANS ABSOLUTE 0.0 10*3/uL Normal <0.1 [facility] Comment on above: Performed By: #### L [id number] ####Pre Press Operator: VELMA VALADEZ ([phone])[address] Lymphocytes (Bld) [#/Vol] 1.2 10*3/uL Normal 1.0-4.3 [facility] Comment on above: Performed By: #### L [id number] ####Pre Press Operator: VELMA VALADEZ ([phone])[facility])[address] [place] [address] Lymphocytes/100 WBC (Bld) 22.0 % Normal 15.0-45.0 [facility] Comment on above: Performed By: #### L [id number] ####Pre Press Operator: VELMA VALADEZ ([phone])[facility])[address] [place] [address] MCH (RBC) [Entitic mass] 25.9 pg Low 26.0-34.0 [facility] Comment on above: Performed By: #### L [id number] ####Pre Press Operator: VELMA VALADEZ ([phone])[address] MCHC 30.4 % Low 30.5-36.0 [facility] Comment on above: Performed By: #### L [id number] ####Pre Press Operator: VELMA VALADEZ ([phone])[facility] ([facility])[address] [place] [address] MCV (RBC) [Entitic vol] 84.9 fL Normal 77.0-99.0 [facility] Comment on above: Performed By: #### L [id number] ####Pre Press Operator: VELMA VALADEZ ([phone])[facility] ([facility])[address] [place] [address] Monocytes (Bld) [#/Vol] 0.6 10*3/uL Normal 0.0-0.9 [facility] Comment on above: Performed By: #### L [id number] ####Pre Press Operator: VELMA VALADEZ ([phone])[facility])[address] [place] [address] Monocytes/100 WBC (Bld) 10.0 % Normal 5.0-13.0 [facility] Comment on above: Performed By: #### L [id number] ####Pre Press Operator: VELMA VALADEZ ([phone])[facility] ([facility])[address] [place] [address] NEUTROPHILS ABSOLUTE 3.7 10*3/uL Normal 1.8-7.5 [facility] Comment on above: Performed By: #### L [id number] ####Pre Press Operator: VELMA VALADEZ ([id number])[facility] ([facility])[address] [place] [address] Neutrophils/100 WBC (Bld) 66.1 % Normal 38.0-82.0 [facility] Comment on above: Performed By: #### L [id number] ####Pre Press Operator: VELMA VALADEZ ([phone])[facility] ([facility])[address] [place] [address] NRBC 0.0 /100 WBCs Normal 0.0-2.0 [facility] Comment on above: Performed By: #### L [id number] ####Pre Press Operator: VELMA VALADEZ ([phone])[facility] ([facility])[address] [place] [address] [place] Platelet mean volume (Bld) [Entitic vol] 9.8 fL Normal 9.0-12.7 [facility] Comment on above: Performed By: #### L [id number] ####Pre Press Operator: VELMA VALADEZ ([phone])[facility] ([facility])[address] [place] [address] Platelets (Bld) [#/Vol] 301 10*3/uL Normal 140-440 [facility] Comment on above: Performed By: #### L [id number] ####Pre Press Operator: VELMA VALADEZ ([phone])[facility] ([facility])[address] [place] [address] RBC (Bld) [#/Vol] 3.52 10*6/uL Low 3.80-5.20 [facility] Comment on above: Performed By: #### L [id number] ####Pre Press Operator: VELMA VALADEZ ([phone])[facility] ([facility])[address] [place] [address] WBC (Bld) [#/Vol] 5.6 10*3/uL Normal 3.6-10.7 [facility] Comment on above: Performed By: #### L [id number] ####Pre Press Operator: VELMA VALADEZ ([phone])[facility] ([facility])[address] [place] [address] CBC panel Auto (Bld)on 07-07 Erythrocyte distribution width (RBC) [Ratio] 17.5 % High 11.5-15.0 [facility] Comment on above: Order Comment: Speci men Type: BLOOD SPECIMEN Ordering Facility: [facility] Address: [address] [place] [address] Performed By: #### 2 4362-6 #### [facility] CLIA [id number] [address] [place] [address] [place] Hematocrit (Bld) [Volume fraction] 32.7 % Low 36.0-46.0 [facility] Comment on above: Order Comment: Speci men Type: BLOOD SPECIMEN Ordering Facility: [facility] Address: [address] [place] [address] Performed By: #### 2 4362-6 #### [facility] CLIA [id number] [address] [place] [address] [place] Hemoglobin (Bld) [Mass/Vol] 10.2 g/dL Low 11.5-15.5 [facility] Comment on above: Order Comment: Speci men Type: BLOOD SPECIMEN Ordering Facility: [facility] Address: [address] [place] [address] Performed By: #### 2 4362-6 #### [facility] CLIA [id number] [address] [place] [address] [place] MCH (RBC) [Entitic mass] 26.8 pg Normal 26.0-34.0 [facility] Comment on above: Order Comment: Speci men Type: BLOOD SPECIMEN Ordering Facility: [facility] Address: [address] [place] [address] Performed By: #### 2 4362-6 #### [facility] CLIA [id number] [address] [place] [address] [place] MCHC (RBC) [Mass/Vol] 31.2 g/dL Normal 30.5-36.0 [facility] Comment on above: Order Comment: Speci men Type: BLOOD SPECIMEN Ordering Facility: [facility] Address: [address] [place] [address] Performed By: #### 2 4362-6 #### [facility] CLIA [id number] [address] [place] [address] [place] MCV (RBC) [Entitic vol] 86.1 fL Normal 80.0-100.0 [facility] Comment on above: Order Comment: Speci men Type: BLOOD SPECIMEN Ordering Facility: [facility] Address: [address] [place] [address] Performed By: #### 2 4362-6 #### [facility] CLIA [id number] [address] [place] [address] [place] Nucleated RBC (Bld) [#/Vol] 10*3/uL Normal <0.01 [facility] Comment on above: Order Comment: Speci men Type: BLOOD SPECIMEN Ordering Facility: [facility] Address: [address] [place] [address] Performed By: #### 2 4362-6 #### [facility] CLIA [id number] [address] [place] [address] [place] Platelet mean volume (Bld) [Entitic vol] 9.8 fL Normal 9.0-12.7 [facility] Comment on above: Order Comment: Speci men Type: BLOOD SPECIMEN Ordering Facility: [facility] Address: [address] [place] [address] Performed By: #### 2 4362-6 #### [facility] CLIA [id number] [address] [place] [address] [place] Platelets (Bld) [#/Vol] 284 10*3/uL Normal 150-400 [facility] Comment on above: Order Comment: Speci men Type: BLOOD SPECIMEN Ordering Facility: [facility] Address: [address] [place] [address] Performed By: #### 2 4362-6 #### [facility] CLIA [id number] [address] [place] [address] [place] RBC (Bld) [#/Vol] 3.80 10*6/uL Low 3.90-5.20 [facility] Comment on above: Order Comment: Speci men Type: BLOOD SPECIMEN Ordering Facility: [facility] Address: [address] [place] [address] Performed By: #### 2 4362-6 #### [facility] CLIA [id number] [address] [place] [address] [place] WBC (Bld) [#/Vol] 5.72 10*3/uL Normal 3.70-11.00 [facility] Comment on above: Order Comment: Speci men Type: BLOOD SPECIMEN Ordering Facility: [facility] Address: [address] [place] [address] Performed By: #### 2 4362-6 #### [facility] CLIA [id number] [address] [place] [address] [id number] [place] [address] [place] ORBITS WO IVCONon 024 CT ORBITS WO IVCON * * *Final Report* * * DATE OF EXAM: Jul 07 2024 8:21PM [facility] [facility] [place] CT ORBITS WO IVCON / [...] changes. Unchanged appearance of left globe/phthisis bulbi. Podiatric Assistant: PSCYoan Transcribe Date/Time: Jul 07 2024 8:24P Dictated by : ULICES LEBLANC MD This examination was interpreted and the report reviewed and electronically signed by: DE JAIN MD on Jul 07 2024 9:18PM EST [id number] Normal [facility] HISTORY PHYSICALon 4 HISTORY PHYSICAL HNO ID: [id number] Author: FELICIA LEVY MD Service: General Internal [...] 3pm): Please page Yuri Keith MD NIGHT (Week 5pm to 7am/Weekends 3pm to 7am): Please page on-call resident [phone] (Jonathan Chaudhry Subjective CHIEF COMPLAINT: Acute angle closure glaucoma HPI: Mel Kareem Castillo is a 83 year old female with a PMH of COPD, HTN, Afib (on Lovenox), CKD Stage 3, L retinal detachment, recurrent embolic events, and most 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 She was subsequently taken by the oil expeller for peripheral iridotomy's, which helped to reduce elevated intraocular pressure down to 10.2 mmHg in the R eye. Furthermore, was evaluated by stroke team at [facility] who reviewed her images and believed her headache and severe vision loss was secondary to the acute closure glaucoma and not stroke. Ultimately, it was determined that due to vision now being reduced to only one eye she required retinal specialist at [facility] for repair of acute retinal detachment on [...] of breath., Disp: , Rfl: , 07/06/2024 golclivkqsn-ptckyrkub-a ilanter (TRELEGY ELLIPTA) 100-62.5-25 mcg inhalation powder, Inhale 1 (more content not included)... Normal [facility] NURSING PROGon 07-07-2024 NURSING PROG HNO ID: [id number] Author: SONNY CASTILLO, RN Service: Nursing Author Type: Registered Nurse [...] Normal [facility] NURSING PROG HNO ID: [id number] Author: WINIFRED HILLS RN Service: ? Author Type: Registered Nurse Type: Nursing Progress Note Filed: 07/07/2024 12:15 Note Text: Transfer Note: PATIENT NAME: Mel Castillo Patient Location: [place] [address]/60-31 Room: [place] [address] Patient transferred into room/unit H60-31 in stable condition. Actions taken: Team notified. Patient belongings with patient. Pt oriented to the floor policy and fall prevention protocol. Call light within reach. Normal [facility] Nursing Noteon 07-07-2024 Nursing Note Report called to [facility]. Normal [facility] Progress Noteon 07-07-2024 Progress Note Nutrition rescreen completed. Chart reviewed. Patient to be monitored and followed by the diet gis mapping technician. Normal [facility] Renal function 2000 panelon 07-07-2024 Albumin [Mass/Vol] 3.7 g/dL Low 3.9-4.9 [facility] Comment on above: Order Comment: Speci men Type: BLOOD SPECIMEN Ordering Facility: [facility] Address: [address] [place] [address] Performed By: #### 2 4362-6 #### [facility] CLIA [id number] [address] [place], [place] [address] [address] [place] Anion gap [Moles/Vol] 12 mmol/L Normal 8-15 [facility] Comment on above: Order Comment: Speci men Type: BLOOD SPECIMEN Ordering Facility: [facility] Address: [address] [place] [address] Performed By: #### 2 4362-6 #### [facility] CLIA [id number] [address] [place] [address] [place] Calcium [Mass/Vol] 9.2 mg/dL Normal 8.5-10.2 [facility] Comment on above: Order Comment: Speci men Type: BLOOD SPECIMEN Ordering Facility: [facility] Address: [address] [place] [address] Performed By: #### 2 4362-6 #### [facility] CLIA [id number] [address] [place] [address] [place] Chloride [Moles/Vol] 107 mmol/L Normal 98-107 [facility] Comment on above: Order Comment: Speci men Type: BLOOD SPECIMEN Ordering Facility: [facility] Address: [address] [place] [address] Performed By: #### 2 4362-6 #### [facility] CLIA [id number] [address] [place] [address] [place] CO2 [Moles/Vol] 20 mmol/L Low 22-30 [facility] Comment on above: Order Comment: Speci men Type: BLOOD SPECIMEN Ordering Facility: [facility] Address: [address] [place] [address] Performed By: #### 2 4362-6 #### [facility] CLIA [id number] [address] [place] [address] [place] Creatinine [Mass/Vol] 0.82 mg/dL Normal 0.58-0.96 [facility] Comment on above: Order Comment: Speci men Type: BLOOD SPECIMEN Ordering Facility: [facility] Address: [address] [place] [address] Performed By: #### 2 4362-6 #### [facility] CLIA [id number] [address] [place] [address] [place] Creatinine and Glomerular filtration rate.predicted panel (S/P/Bld) 71 mL/min/1.73m??? Normal >=60 [facility] Comment on above: Order Comment: Speci men Type: BLOOD SPECIMEN Ordering Facility: [facility] Address: [address] [place] [address] Result Comment: Isa mated Glomerular Filtration Rate [...] GFR. Performed By: #### 2 4362-6 #### [facility] CLIA [id number] [address] [place] [address] [place] Glucose [Mass/Vol] 106 mg/dL High 74-99 [facility] Comment on above: Order Comment: Rhina mason Type: BLOOD SPECIMEN Ordering Facility: [facility] Address: [address] [place] [address] Result Comment: The [place] Diabetes Association (ADA) provides guidance for cutoff [...] Standards of Medical Care in Diabetes 2016, [place] [employer]. Diabetes Care. 2016.39(Suppl 1). Performed By: #### 2 4362-6 #### [facility] CLIA [id number] [address] [place] [address] [place] Phosphate [Mass/Vol] 3.0 mg/dL Normal 2.7-4.8 [facility] Comment on above: Order Comment: Rhina mason Type: BLOOD SPECIMEN Ordering Facility: [facility] Address: [address] [place] [address] Performed By: #### 2 4362-6 #### [facility] CLIA [id number] [address] [place] [address] [place] Potassium [Moles/Vol] 4.3 mmol/L Normal 3.7-5.1 [facility] Comment on above: Order Comment: Speci men Type: BLOOD SPECIMEN Ordering Facility: [facility] Address: [address] [place] [address] Performed By: #### 2 4362-6 #### [facility] CLIA [id number] [address] [place] [address] [place] Sodium [Moles/Vol] 139 mmol/L Normal 136-144 [facility] Comment on above: Order Comment: Speci men Type: BLOOD SPECIMEN Ordering Facility: [facility] Address: [address] [place] [address] Performed By: #### 2 4362-6 #### [facility] CLIA [id number] [address] [place] [address] [place] Urea nitrogen [Mass/Vol] 16 mg/dL Normal 7-21 [facility] Comment on above: Order Comment: Speci men Type: BLOOD SPECIMEN Ordering Facility: [facility] Address: [address] [place] [address] Performed By: #### 2 4362-6 #### [facility] CLIA [id number] [address] [place] [address] [place] [id number] 07-06-2024 [id number] Normal [facility] BASIC METABOLIC PANELon 06-18-2023 Anion gap [Moles/Vol] 9 mmol/L Normal 3-13 [facility] Comment on above: Performed By: #### L AB15 ####Pre Press Operator: VELMA VALADEZ ([phone])[facility] ([facility] Calcium [Mass/Vol] 8.9 mg/dL Normal 8.8-10.0 [facility] Comment on above: Performed By: #### L AB15 ####Pre Press Operator: VELMA VALADEZ ([phone])[facility] ([facility])[address] [place] [address] Chloride [Moles/Vol] 113 mmol/L High 98-107 [facility] Comment on above: Performed By: #### L AB15 ####Pre Press Operator: VELMA VALADEZ ([phone])[facility] ([facility])[address] [place] [address] CO2 [Moles/Vol] 18 mmol/L Low 23-31 [facility] Comment on above: Performed By: #### L AB15 ####Pre Press Operator: VELMA VALADEZ ([phone])[facility] ([facility])[address] [place] [address] Creatinine [Mass/Vol] 0.86 mg/dL Normal 0.57-1.11 [facility] Comment on above: Performed By: #### L AB15 ####Pre Press Operator: VELMA VALADEZ ([phone])[facility] ([facility])[address] [place] [address] [place] GLOMERULAR FILTRATION RATE ML/MIN/1.73 SQ M.PREDICTED 66.7 mL/min/1.73m*2 Normal >60.0 [facility] Comment on above: Result Comment: Calc ulation based on the Chronic Kidney Disease Epidemiology Collaboration (CKD-EPI) equation refit without adjustment for race Performed By: #### L AB15 ####Pre Press Operator: VELMA VALADEZ ([phone])[facility] ([facility])[address] [place] [address] [place] Glucose [Mass/Vol] 74 mg/dL Low 82-115 [facility] Comment on above: Performed By: #### L AB15 ####Pre Press Operator: VELMA VALADEZ ([phone])[facility] ([facility])[address] [place] [address] [place] Potassium [Moles/Vol] 4.5 mmol/L Normal 3.5-5.1 [facility] Comment on above: Result Comment: [facility] potassium values may be up to 0.5 mmol/L lower than serum values. Performed By: #### L AB15 ####Pre Press Operator: VELMA VALADEZ ([phone])[facility])[address] [place] [address] Sodium [Moles/Vol] 140 mmol/L Normal 136-145 [facility] Comment on above: Performed By: #### L AB15 ####Pre Press Operator: VELMA VALADEZ ([id number])[facility] ([facility])[address] [place] [address] Urea nitrogen [Mass/Vol] 16 mg/dL Normal 9-23 [facility] Comment on above: Performed By: #### L AB15 ####Pre Press Operator: VELMA VALADEZ ([phone])[facility])[address] [place] [address] Basic metabolic 1998 panelon 07-06-2024 Anion gap [Moles/Vol] 9 mmol/L 3 - 13 mmol/L [facility] Calcium [Mass/Vol] 8.9 mg/dL 8.8 - 10. 0 mg/dL [facility] Chloride [Moles/Vol] 113 mmol/L High 98 - 10 7 mmol/L [facility] CO2 [Moles/Vol] 18 mmol/L Low 23 - 31 mmol/L [facility] Creatinine [Mass/Vol] 0.86 mg/dL 0.57 - 1.11 mg/dL [facility] GFR/1.73 sq M.predicted (S/P/Bld) [Vol rate/Area] 66.7 mL/min - PINF [facility] Comment on above: Calculation based on the Chronic Kidney Disease Epidemiology Collaboration (CKD-EPI) equation refit without adjustment for race Glucose [Mass/Vol] 74 mg/dL Low 82 - 115 mg/dL [facility] Interpretation and review of laboratory results Abnormal [facility] Potassium [Moles/Vol] 4.5 mmol/L 3.5 - 5.1 mmol/L [facility] Comment on above: Plasma potassium chris ues may be up to 0.5 mmol/L lower than serum values. Sodium [Moles/Vol] 140 mmol/L 136 - 145 mmol/L [facility] Urea nitrogen [Mass/Vol] 16 mg/dL 9 - 23 mg/dL [facility] CBC W Auto Differential pane l (Bld)Ordered By: Daija Doran on 07-06-2024 Basophils (Bld) [#/Vol] 0 10*3/uL 0.0 - 0.2 10*3/uL [facility] Basophils/100 WBC (Bld) 0.5 % 0.0 - 2.0 % [facility] Eosinophils (Bld) [#/Vol] 0 10*3/uL 0.0 - 0.5 10*3/uL [facility] Eosinophils/100 WBC (Bld) 0.3 % 0.0 - 6.0 % [facility] Erythrocyte distribution width (RBC) [Ratio] 17.8 % High 11.5 - 15.0 % [facility] Hematocrit (Bld) [Volume fraction] 31.8 % Low 35.0 - 47.0 % [facility] Hemoglobin (Bld) [Mass/Vol] 9.7 g/dL Low 11.7 - 16.0 g/dL [facility] Immature granulocytes (Bld) [#/Vol] 0 10*3/uL NINF - 0.1 10*3/uL [facility] Immature granulocytes/100 WBC (Bld) 0.3 % 0.0 - 2.0 % [facility] Interpretation and review of laboratory results Abnormal [facility] Lymphocytes (Bld) [#/Vol] 1.2 10*3/uL 1.0 - 4.3 10*3/uL [facility] Lymphocytes/100 WBC (Bld) 18.9 % 15.0 - 45.0 % [facility] MCH (RBC) [Entitic mass] 26.4 pg 26.0 - 34.0 pg [facility] MCHC (RBC) [Mass/Vol] 30.5 % 30.5 - 36.0 % [facility] MCV (RBC) [Entitic vol] 86.4 fL 77.0 - 99.0 fL [facility] Monocytes (Bld) [#/Vol] 0.5 10*3/uL 0.0 - 0.9 10*3/uL [facility] Monocytes/100 WBC (Bld) 8.2 % 5.0 - 13.0 % [facility] Neutrophils (Bld) [#/Vol] 4.4 10*3/uL 1.8 - 7.5 10*3/uL [facility] Neutrophils/100 WBC (Bld) 71.8 % 38.0 - 82.0 % [facility] Nucleated RBC/100 WBC (Bld) [Ratio] 0 % [facility] Platelet mean volume (Bld) [Entitic vol] 10.9 fL 9.0 - 12.7 fL [facility] Platelets (Bld) [#/Vol] 278 10*3/uL 140 - 440 10*3/uL [facility] RBC (Bld) [#/Vol] 3.68 10*6/uL Low 3.80 - 5.2 0 10*6/uL [facility] WBC (Bld) [#/Vol] 6.1 10*3/uL 3.6 - 10.7 10*3/uL [facility] CBC WITH AUTO DIFFERENTIALon 07-06-2024 Basophils (Bld) [#/Vol] 0.0 10*3/uL Normal 0.0-0.2 [facility] Comment on above: Performed By: #### L [id number] ####Pre Press Operator: VELMA VALADEZ ([phone])[facility] ([facility])[address] [place] [address] Basophils/100 WBC (Bld) 0.5 % Normal 0.0-2.0 [facility] Comment on above: Performed By: #### L [id number] ####Pre Press Operator: VELMA VALADEZ ([phone])[facility])[address] [place] [address] [place] Eosinophils (Bld) [#/Vol] 0.0 10*3/uL Normal 0.0-0.5 [facility] Comment on above: Performed By: #### L [id number] ####Pre Press Operator: VELMA VALADEZ ([phone])[facility])[address] [place] [address] [place] Eosinophils/100 WBC (Bld) 0.3 % Normal 0.0-6.0 [facility] Comment on above: Performed By: #### L [id number] ####Pre Press Operator: VELMA [id number])[facility])[address] [place] [address] Erythrocyte distribution width (RBC) [Ratio] 17.8 % High 11.5-15.0 [facility] Comment on above: Performed By: #### L [id number] ####Pre Press Operator: VELMA VALADEZ ([phone])[facility])[address] [place] [address] Hematocrit (Bld) [Volume fraction] 31.8 % Low 35.0-47.0 [facility] Comment on above: Performed By: #### L [id number] ####Pre Press Operator: VELMA VALADEZ ([phone])[facility])[address] [place] [address] Hemoglobin (Bld) [Mass/Vol] 9.7 g/dL Low 11.7-16.0 [facility] Comment on above: Performed By: #### L [id number] ####Pre Press Operator: VELMA VALADEZ ([phone])[facility])[address] [place] [address] IMMATURE GRANS % 0.3 % Normal 0.0-2.0 [facility] Comment on above: Performed By: #### L [id number] ####Pre Press Operator: VELMA VALADEZ ([phone])[facility])[address] [place] [address] IMMATURE GRANS ABSOLUTE 0.0 10*3/uL Normal <0.1 [facility] Comment on above: Performed By: #### L [id number] ####Pre Press Operator: VELMA VALADEZ ([phone])[facility])[address] [place] [address] Lymphocytes (Bld) [#/Vol] 1.2 10*3/uL Normal 1.0-4.3 [facility] Comment on above: Performed By: #### L [id number] ####Pre Press Operator: VELMA VALADEZ ([id number])[facility])[address] [place] [address] Lymphocytes/100 WBC (Bld) 18.9 % Normal 15.0-45.0 [facility] Comment on above: Performed By: #### L [id number] ####Pre Press Operator: VELMA VALADEZ ([id number])[facility])[address] [place] [address] MCH (RBC) [Entitic mass] 26.4 pg Normal 26.0-34.0 [facility] Comment on above: Performed By: #### L [id number] ####Pre Press Operator: VELMA VALADEZ ([id number])[facility])[address] [place] [address] MCHC 30.5 % Normal 30.5-36.0 [facility] Comment on above: Performed By: #### L [id number] ####Pre Press Operator: VELMA VALADEZ ([id number])[facility])[address] [place] [address] MCV (RBC) [Entitic vol] 86.4 fL Normal 77.0-99.0 [facility] Comment on above: Performed By: #### L [id number] ####Pre Press Operator: VELMA VALADEZ ([phone])[facility])[address] [place] [address] Monocytes (Bld) [#/Vol] 0.5 10*3/uL Normal 0.0-0.9 [facility] Comment on above: Performed By: #### L [id number] ####Pre Press Operator: VELMA VALADEZ ([id number])[facility])[address] [place] [address] Monocytes/100 WBC (Bld) 8.2 % Normal 5.0-13.0 [facility] Comment on above: Performed By: #### L [id number] ####Pre Press Operator: VELMA VALADEZ ([id number])[facility])[address] [place] [address] NEUTROPHILS ABSOLUTE 4.4 10*3/uL Normal 1.8-7.5 [facility] Comment on above: Performed By: #### L [id number] ####Pre Press Operator: VELMA VALADEZ ([id number])[facility] ([facility])[address] [place] [address] Neutrophils/100 WBC (Bld) 71.8 % Normal 38.0-82.0 [facility] Comment on above: Performed By: #### L [id number] ####Pre Press Operator: VELMA VALADEZ ([id number])[facility] ([facility])[address] [place] [address] NRBC 0.0 /100 WBCs Normal 0.0-2.0 [facility] Comment on above: Performed By: #### L [id number] ####Pre Press Operator: VELMA VALADEZ ([id number])[facility] ([facility])[address] [place] [address] Platelet mean volume (Bld) [Entitic vol] 10.9 fL Normal 9.0-12.7 [facility] Comment on above: Performed By: #### L [id number] ####Pre Press Operator: VELMA VALADEZ ([id number])[facility] ([facility])[address] [place] [address] Platelets (Bld) [#/Vol] 278 10*3/uL Normal 140-440 [facility] Comment on above: Performed By: #### L [id number] ####Pre Press Operator: VELMA VALADEZ ([id number])[facility] ([facility])[address] [place] [address] RBC (Bld) [#/Vol] 3.68 10*6/uL Low 3.80-5.20 [facility] Comment on above: Performed By: #### L [id number] ####Pre Press Operator: VELMA VALADEZ ([id number])[facility] ([facility])[address] [place] [address] [place] WBC (Bld) [#/Vol] 6.1 10*3/uL Normal 3.6-10.7 [facility] Comment on above: Performed By: #### L [id number] ####Pre Press Operator: VELMA VALADEZ ([phone])[facility])[address] [place] [address] Lauren 07-06-2024 CNPN Telephone (OPHTMN) KIESHA MEL CASTILLO ([id number]) 1940 F CHT Date Time Provider Department 07/06/24 RYAN ELIZONDO [facility] During your visit today, we recorded the following information about you: Ryan Elizondo MD 07/06/2024 2:42 PM Signed TELEPHONE ENCOUNTER 07/06/2024 Patient with recent stroke and admitted to [facility] where she was noted to have elevated IOP with retinal detachment of the right eye by consult oil expeller. 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 Was contacted about potential transfer to [facility] to be evaluated by retinal specialist. [...] as needed for wheezing/shortness of breath. - fvnjxeokebt-mkuzvryph-o ilanter (TRELEGY ELLIPTA) 100-62.5-25 mcg inhalation powder [...] Status:Closed by RYAN ELIZONDO on 07/06/24 Normal [facility] Consulton 07-06-2024 Consult Normal [facility] Nursing Noteon 07-06-2024 Nursing Note This RN called Protective Services to try and locate pts lost glasses from 07/05/2024. Glasses that match the description are in lost and found. Will attempt to see if glasses are a match. Normal [facility] Progress Noteon 07-06-2024 Progress Note Normal [facility] Progress Note Normal [facility] CBC (HEMOGRAM)on 07-05-2024 Erythrocyte distribution width (RBC) [Ratio] 17.2 % High 11.5-15.0 [facility] Comment on above: Performed By: #### L [id number] ####Pre Press Operator: VELMA VALADEZ ([phone])[address] Hematocrit (Bld) [Volume fraction] 32.8 % Low 35.0-47.0 [facility] Comment on above: Performed By: #### L [id number] ####Pre Press Operator: VELMA VALADEZ ([id number])[address] Hemoglobin (Bld) [Mass/Vol] 10.6 g/dL Low 11.7-16.0 [facility] Comment on above: Performed By: #### L [id number] ####Pre Press Operator: VELMA VALADEZ ([id number])[address] MCH (RBC) [Entitic mass] 26.4 pg Normal 26.0-34.0 [facility] Comment on above: Performed By: #### L [id number] ####Pre Press Operator: VELMA VALADEZ ([id number])[address] MCHC 32.3 % Normal 30.5-36.0 [facility] Comment on above: Performed By: #### L [id number] ####Pre Press Operator: VELMA VALADEZ ([id number])[facility] ([facility])[address] [place] [address] MCV (RBC) [Entitic vol] 81.8 fL Normal 77.0-99.0 [facility] Comment on above: Performed By: #### L [id number] ####Pre Press Operator: VELMA VALADEZ ([id number])[facility] ([facility])[address] [place] [address] Platelet mean volume (Bld) [Entitic vol] 9.6 fL Normal 9.0-12.7 [facility] Comment on above: Performed By: #### L [id number] ####Pre Press Operator: VELMA VALADEZ ([id number])[facility] ([facility])[address] [place] [address] Platelets (Bld) [#/Vol] 349 10*3/uL Normal 140-440 [facility] Comment on above: Performed By: #### L [id number] ####Pre Press Operator: VELMA VALADEZ ([phone])[facility] ([facility])[address] [place] [address] RBC (Bld) [#/Vol] 4.01 10*6/uL Normal 3.80-5.20 [facility] Comment on above: Performed By: #### L [id number] ####Pre Press Operator: VELMA VALADEZ ([id number])[facility] ([facility])[address] [place] [address] WBC (Bld) [#/Vol] 5.5 10*3/uL Normal 3.6-10.7 [facility] Comment on above: Performed By: #### L [id number] ####Pre Press Operator: VELMA VALADEZ ([id number])[facility])[address] [place] [address] CBC panel Auto (Bld)on 07-05 Erythrocyte distribution width (RBC) [Ratio] 17.2 % High 11.5 - 15.0 % [facility] Hematocrit (Bld) [Volume fraction] 32.8 % Low 35.0 - 47.0 % [facility] Hemoglobin (Bld) [Mass/Vol] 10.6 g/dL Low 11.7 - 16.0 g/dL [facility] Interpretation and review of laboratory results Abnormal [facility] MCH (RBC) [Entitic mass] 26.4 pg 26.0 - 34.0 pg [facility] MCHC (RBC) [Mass/Vol] 32.3 % 30.5 - 36.0 % [facility] MCV (RBC) [Entitic vol] 81.8 fL 77.0 - 99.0 fL [facility] Platelet mean volume (Bld) [Entitic vol] 9.6 fL 9.0 - 12.7 fL [facility] Platelets (Bld) [#/Vol] 349 10*3/uL 140 - 440 10*3/uL [facility] RBC (Bld) [#/Vol] 4.01 10*6/uL 3.80 - 5.2 0 10*6/uL [facility] WBC (Bld) [#/Vol] 5.5 10*3/uL 3.6 - 10.7 10*3/uL [facility] COMPREHENSIVE METABOLIC PANE Gilberto 07-05-2024 Albumin [Mass/Vol] 3.6 g/dL Normal 3.4-4.8 [facility] Comment on above: Performed By: #### L [id number], LAB17 ####Pre Press Operator: VELMA VALADEZ ([id number])[facility])[address] [place] [address] ALP [Catalytic activity/Vol] 94 U/L Normal 40-150 [facility] Comment on above: Performed By: #### L [id number], LAB17 ####Pre Press Operator: VELMA VALADEZ ([id number])[facility] ([facility])[address] [place] [address] ALT [Catalytic activity/Vol] 23 U/L Normal <30 [facility] Comment on above: Performed By: #### L [id number], [id number] ####Pre Press Operator: VELMA VALADEZ ([id number])[facility])[address] [place] [address] Anion gap [Moles/Vol] 10 mmol/L Normal 3-13 [facility] Comment on above: Performed By: #### L [id number], LAB17 ####Pre Press Operator: VELMA VALADEZ ([phone])[facility] ([facility])[address] [place] [address] AST [Catalytic activity/Vol] 26 U/L Normal <34 [facility] Comment on above: Performed By: #### L [id number], LAB17 ####Pre Press Operator: VELMA VALADEZ ([id number])[facility])[address] [place] [address] Bilirubin [Mass/Vol] 0.7 mg/dL Normal <1.2 [facility] Comment on above: Performed By: #### L [id number], LAB17 ####Pre Press Operator: VELMA VALADEZ ([id number])[facility] ([facility])[address] [place] [address] Calcium [Mass/Vol] 9.2 mg/dL Normal 8.8-10.0 [facility] Comment on above: Performed By: #### L [id number], LAB17 ####Pre Press Operator: VELMA VALADEZ ([id number])[facility])[address] [place] [address] Chloride [Moles/Vol] 107 mmol/L Normal 98-107 [facility] Comment on above: Performed By: #### L [id number], LAB17 ####Pre Press Operator: VELMA VALADEZ ([id number])[facility] ([facility])[address] [place] [address] [place] CO2 [Moles/Vol] 22 mmol/L Low 23-31 [facility] Comment on above: Performed By: #### L [id number], LAB17 ####Pre Press Operator: VELMA VALADEZ ([id number])[facility] ([facility])[address] [place] [address] Creatinine [Mass/Vol] 0.82 mg/dL Normal 0.57-1.11 [facility] Comment on above: Performed By: #### L [id number], LAB17 ####Pre Press Operator: VELMA VALADEZ ([id number])[facility])[address] [place] [address] [place] GLOMERULAR FILTRATION RATE ML/MIN/1.73 SQ M.PREDICTED 70.6 mL/min/1.73m*2 Normal >60.0 [facility] Comment on above: Result Comment: Calc ulation based on the Chronic Kidney Disease Epidemiology Collaboration (CKD-EPI) equation refit without adjustment for race Performed By: #### L [id number], LAB17 ####Pre Press Operator: VELMA VALADEZ ([id number])[address] Glucose [Mass/Vol] 118 mg/dL High 82-115 [facility] Comment on above: Performed By: #### L [id number], LAB17 ####Pre Press Operator: VELMA VALADEZ ([id number])[address] Potassium [Moles/Vol] 4.3 mmol/L Normal 3.5-5.1 [facility] Comment on above: Result Comment: [facility] potassium values may be up to 0.5 mmol/L lower than serum values. Performed By: #### L [id number], LAB17 ####Pre Press Operator: VELMA VALADEZ ([id number])[address] Protein [Mass/Vol] 7.0 g/dL Normal 6.4-8.3 [facility] Comment on above: Performed By: #### L [id number], LAB17 ####Pre Press Operator: VELMA VALADEZ ([id number])[facility])[address] [place] [address] [place] Sodium [Moles/Vol] 139 mmol/L Normal 136-145 [facility] Comment on above: Performed By: #### L [id number], LAB17 ####Pre Press Operator: VELMA VALADEZ ([id number])[facility])[address] [place] [address] Urea nitrogen [Mass/Vol] 13 mg/dL Normal 9- [facility] Comment on above: Performed By: #### L [id number], LAB17 ####Pre Press Operator: VELMA VALADEZ ([id number])[facility] ([facility])[address] [place] [address] CT HEAD NECK ANGIO W AND WO IV CONTRASTon 07-05-2024 CT HEAD NECK ANGIO W AND WO IV CONTRAST Normal [facility] CT HEAD WO IV CONTRASTon CT HEAD WO IV CONTRAST Normal [facility] CT Head WO contraston 2023 Patient Name: MEL CARVER RD [facility] 1940 [id number] Exam Date/Time: 07/05/2024 04:36 Procedure: CT HEAD [...] of the cervica (more content not included)... [facility] Cory, Cirilo Khlail MD - 07/05/2024 Patient Name: MEL POP : 1940 [facility]#: [id number] Exam Date/Time: 07/05/2024 04:36 Procedure: CT HEAD [...] acute consolidative process (more content not included)... [facility] CT PERFUSIONon 07-05-2024 CT PERFUSION Normal [facility] CTA Head vessels and Neck ve ssels WO and W contrast Cheryl 07-05-2024 Patient Name: MEL CARVER RD : 1940 [facility]#: [id number] Exam Date/Time: 07/05/2024 04:36 Procedure: CT HEAD [...] Multilevel degenerative chopra (more content not included)... [facility] Cory, Cirilo Khalil MD - 07/05/2024 [facility] 1940 [id number] Exam Date/Time: 07/05/2024 04:36 Procedure: CT HEAD [...] no acute conso (more content not included)... [facility] Comprehensive metabolic 1998 panelon 07-05-2024 Albumin [Mass/Vol] 3.6 g/dL 3.4 - 4.8 g/dL [facility] ALP [Catalytic activity/Vol] 94 U/L 40 - 150 U/L [facility] ALT [Catalytic activity/Vol] 23 U/L NINF - 30 U/L [facility] Anion gap [Moles/Vol] 10 mmol/L 3 - 13 mmol/L [facility] AST [Catalytic activity/Vol] 26 U/L NINF - 34 U/L [facility] Bilirubin [Mass/Vol] 0.7 mg/dL NINF - 1.2 mg/dL [facility] Calcium [Mass/Vol] 9.2 mg/dL 8.8 - 10. 0 mg/dL [facility] Chloride [Moles/Vol] 107 mmol/L 98 - 10 7 mmol/L [facility] CO2 [Moles/Vol] 22 mmol/L Low 23 - 31 mmol/L [facility] Creatinine [Mass/Vol] 0.82 mg/dL 0.57 - 1.11 mg/dL [facility] GFR/1.73 sq M.predicted (S/P/Bld) [Vol rate/Area] 70.6 mL/min - PINF [facility] Comment on above: Calculation based on the Chronic Kidney Disease Epidemiology Collaboration (CKD-EPI) equation refit without adjustment for race Glucose [Mass/Vol] 118 mg/dL High 82 - 115 mg/dL [facility] Interpretation and review of laboratory results Abnormal [facility] Potassium [Moles/Vol] 4.3 mmol/L 3.5 - 5.1 mmol/L [facility] Comment on above: Plasma potassium chris ues may be up to 0.5 mmol/L lower than serum values. Protein [Mass/Vol] 7 g/dL 6.4 - 8.3 g/dL [facility] Sodium [Moles/Vol] 139 mmol/L 136 - 145 mmol/L [facility] Urea nitrogen [Mass/Vol] 13 mg/dL 9 - 23 mg/dL [facility] Consulton 07-05-2024 Consult [facility] Consult [facility] Consult Normal [facility] Consult Normal [facility] ECG 12-LEADon 07-05-2024 ECG 12-LEAD IMPRESSION: Atrial fibrillation Electronically Signed On 07-05-2024 12:39:21 EST by Jhonatan Hernandez [facility] ED Nursing Noteon 07-05-[address] Carlson at bedside. Normal [facility] ED Nursing Note Provider notified of patient request for pain meds. Normal [facility] ED Nursing Note Dr. Carlson at bedside [facility] ED Nursing Note Patient is returning back to room 32 at this time with Jose, Medic. Normal [facility] ED Nursing Note Pt emergently going to eye clinic. Pt being transported in wheelchair with trauma float Arin RN and Maritza RN Pt being transported on zoll monitor and acls kit. Normal [facility] ED Nursing Note Ophthalmology at bedside Normal [facility] ED Nursing Note Report to Maritza FRAGA Normal [facility] ED Provider Noteon 4 ED Provider Note Normal [facility] HEMOGLOBIN A1Con 07-05-2024 Glucose [Mass/Vol] 120 mg/dL Normal [facility] Comment on above: Result Comment: HARRIETE R COMMENTS:HbA1c values of 5.7-6.4 percent indicate an increased risk for developing diabetes mellitus. HbA1c values greater than or equal to 6.5 percent are diagnostic of diabetes mellitus. For diagnosis of diabetes in individuals without unequivocal hyperglycemia, results should be confirmed by repeat testing. Performed By: #### L [id number] ####Pre Press Operator: VELMA VALADEZ ([phone])[facility])[address] [place] [address] HEMOGLOBIN A1C 5.8 %HbA1C High <5.7 [facility] Comment on above: Result Comment: Norm al less than 5.7%Prediabetes 5.7% to 6.4%Diabetes 6.5% or higher--HgbA1C levels may not be accurate in patients who have renal disease, received recent blood transfusions, are anemic, or who have dyshemoglobinemia. Performed By: #### L AB90 ####Pre Press Operator: VELMA VALADEZ ([phone])[facility] ([facility])[address] [place] [address] HIGH SENSITIVITY TROPONIN, S ERIAL BASELINEon 07-05-2024 TROPONIN HIGH SENSITIVITY BASELINE 14 ng/L Normal <=14 [facility] Comment on above: Performed By: #### L [id number] ####Pre Press Operator: VELMA VALADEZ ([id number])[facility] ([facility])[address] [place] [address] HIGH SENSITIVITY TROPONIN, S ERIAL, SECOND TESTon 07-05-2024 TROPONIN HS DELTA, BASELINE TO SECOND -5 ng/L Normal <=2 [facility] Comment on above: Result Comment: This specimen [...] further clinical guidance. Performed By: #### L [id number], LAB17 ####Pre Press Operator: VELMA VALADEZ ([phone])[facility] ([facility])[address] [place] [address] TROPONIN HS, SERIAL REFLEX, TEST TWO 9 ng/L Normal <=14 [facility] Comment on above: Performed By: #### L [id number], LAB17 ####Pre Press Operator: VELMA VALADEZ ([id number])[facility] ([facility])[address] [place] [address] Laboratory - Chemistry and C hemistry - challengeon 07-05-2024 Average glucose Estimated from glycated hemoglobin (Bld) [Mass/Vol] 120 mg/dL [facility] Anion gap (Bld) [Moles/Vol] 8 mmol/L 3.00 - 13.00 [facility] Calcium.ionized (Bld) [Moles/Vol] 4.5 mg/dl 4.30 - 5.20 mg/dl [facility] Comment on above: Performed by [employer] CLIA ID:[id number] [place], [place] Device: [id number] Gambling Broker ID: [id number] Chloride [Moles/Vol] 108 mmol/L 98 - 11 4 mmol/L [facility] CO2 [Moles/Vol] 23 mmol/L 21 - 29 mmol/L [facility] Creatinine [Mass/Vol] 0.9 mg/dL 0.6 - 1.3 mg/dL [facility] GFR/1.73 sq M.predicted CKD-EPI (S/P/Bld) [Vol rate/Area] 63.2 [facility] Comment on above: KDIGO guidelines pro [...] 104 mg/dL High 70 - 100 mg/dL [facility] Potassium [Moles/Vol] 4.5 mmol/L 3.4 - 5.1 mmol/L [facility] Sodium [Moles/Vol] 139 mmol/L 133 - 145 mmol/L [facility] Urea (Bld) [Mass/Vol] 14 mg/dL 4 - 22 mg/dL [facility] Glucose [Mass/Vol] 104 mg/dL High 70 - 100 mg/dL [facility] Laboratory - Coagulationon 09-05-2023 aPTT Coag (PPP) [Time] 30.4 s 20.0 - 30.5 s [facility] INR Coag (PPP) [Relative time] 1 {INR} 0.9 - 1.1 [facility] Comment on above: Recommended Anticoag ulant [...] 11.7 s 9.0 - 1 2.0 s [facility] Laboratory - Hematology and Cell countson 07-05-2024 HbA1c (Bld) [Mass fraction] 5.8 % High NINF [facility] Comment on above: Normal less than [...] MD Electronically Signed Date/Time: 07/05/2024 12:13 PM [facility] Patient Name: MEL CARVER RD : [...] There is artifact within the right globe. [facility] Ming Fry MD - 07/05/2024 Patient [...] Electronically Signed Date/Time: 07/05/2024 12:13 PM EST [facility] Radiology Study observation (narrative) [facility] MR Brain WO contrastOrdered By: Ming Fry on 07-05-2024 [facility] Work Phone: No Panel Informationon 07-05 Heart Rate 59 bpm [facility] P Equality 0 degrees [facility] ME Interval 0 ms [facility] QRS Equality 37 degrees [facility] QRSD Interval 98 ms [facility] QT Interval 423 ms [facility] QTC Interval 418 ms [facility] T Wave Equality 29 degrees [facility] Atrial fibrillation Electronically Signed On 07-05-2024 12:39:21 EST by Jhonatan Burgos MD - 07/05/2024 IMPRESSION: Atrial fibrillation Electronically Signed On 07-05-2024 12:39:21 EST by Jhonatan Hernandez [facility] Interpretation and review of laboratory results Abnormal [facility] HbA1c values of 5.7- 6.4 percent indicate an increased risk for developing diabetes mellitus. HbA1c values greater than or equal to 6.5 percent are diagnostic of diabetes mellitus. For diagnosis of diabetes in individuals without unequivocal hyperglycemia, results should be confirmed by repeat testing. [facility] Troponin HS Delta, Baseline to Second -5 ng/L NINF - 2 ng/L [facility] Comment on above: This specimen was [...] Second 9 ng/L NINF - 14 ng/L [facility] 1. No acute intracranial [...] Electronically Signed Date/Time: 07/05/2024 5:03 AM EST [facility] Patient Name: MEL CARVER RD [facility] 1940 [id number] Exam Date/Time: 07/05/2024 04:36 Procedure: CT PERFUSION [...] the cervical spine. (more content not included)... [facility], Cirilo Khalil MD - 07/05/2024 Patient Name: MEL POP : 1940 [facility]#: [id number] Exam Date/Time: 07/05/2024 04:36 Procedure: CT PERFUSION [...] process or suspici (more content not included)... [facility] Interpretation and review of laboratory results Normal [facility] Troponin HS, Serial Baseline 14 ng/L NINF - 14 ng/L [facility] Interpretation and review of laboratory results Normal [facility] Interpretation and review of laboratory results Abnormal [facility] Performed by: [facility], [address] [place] [address] CLIA ID: [id number] [facility] Radiology Study observation (narrative) [facility] Interpretation and review of laboratory results Abnormal [facility] Performed by: [facility], [address] [place] [address] CLIA ID: [id number] [facility] No Panel InformationOrdered By: Cirilo Ray on 07-05-2024 [facility] Work Phone: PROTIME AND APTTon 4 aPTT Coag (Bld) [Time] 30.4 s Normal 20.0-30.5 [facility] Comment on above: Performed By: #### L [id number] ####Pre Press Operator: VELMA VALADEZ ([phone])[facility] ([facility])[address] [place] [address] INR Coag (PPP) [Relative time] 1.0 {INR} Normal 0.9-1.1 [facility] Comment on above: Result Comment: Timothy mmended [...] prevent Myocardial Infarction Performed By: #### L [id number] ####Pre Press Operator: VELMA VALADEZ ([id number])[facility] ([facility])[address] [place] [place] [address] PT Coag (PPP) [Time] 11.7 s Normal 9.0-12.0 [facility] Comment on above: Performed By: #### [place] [id number] ####Pre Press Operator: VELMA VALADEZ ([phone])[facility] ([facility])[address] [place] [address] Progress Noteon 07-05-2024 Progress Note Normal [facility] CBC panel Auto (Bld)on 07-02 Erythrocyte distribution width (RBC) [Ratio] 16.9 % High 11.5 - 15.0 % [facility] Hematocrit (Bld) [Volume fraction] 29.6 % Low 36.0 - 46.0 % [facility] Hemoglobin (Bld) [Mass/Vol] 9.3 g/dL Low 11.5 - 15.5 g/dL [facility] Interpretation and review of laboratory results Abnormal [facility] MCH (RBC) [Entitic mass] 26.7 pg 26.0 - 34.0 pg [facility] MCHC (RBC) [Mass/Vol] 31.4 g/dL 30.5 - 36.0 g/dL [facility] MCV (RBC) [Entitic vol] 85.1 fL 80.0 - 100.0 fL [facility] Nucleated RBC (Bld) [#/Vol] NINF [facility] Platelet mean volume (Bld) [Entitic vol] 10.2 fL 9.0 - 12.7 fL [facility] Platelets (Bld) [#/Vol] 324 10*3/uL [facility] RBC (Bld) [#/Vol] 3.48 10*6/uL Low 3.90 - 5.2 0 m/uL [facility] WBC (Bld) [#/Vol] 5.12 10*3/uL [facility] Erythrocyte distribution width (RBC) [Ratio] 16.9 % High 11.5-15.0 [facility] Comment on above: Order Comment: Speci men Type: BLOOD SPECIMENOrdering Facility: [facility] Address: [address] [place] [address] Performed By: #### 5 8410-2 ####[facility] LABORATORYCLIA [id number] [address] STATES [facility] Hematocrit (Bld) [Volume fraction] 29.6 % Low 36.0-46.0 [facility] Comment on above: Order Comment: Speci men Type: BLOOD SPECIMENOrdering Facility: [facility] Address: [address] [place] [address] Performed By: #### 5 8410-2 ####[facility] LABORATORYCLIA [id number] [address] STATES OF [facility] Hemoglobin (Bld) [Mass/Vol] 9.3 g/dL Low 11.5-15.5 [facility] Comment on above: Order Comment: Speci men Type: BLOOD SPECIMENOrdering Facility: [facility] Address: [address] [place] [address] Performed By: #### 5 8410-2 ####MORGAN LABORATORYCLIA [id number] [address] MCH (RBC) [Entitic mass] 26.7 pg Normal 26.0-34.0 [facility] Comment on above: Order Comment: Speci men Type: BLOOD SPECIMENOrdering Facility: [facility] Address: [address] [place] [address] Performed By: #### 5 8410-2 ####MORGAN LABORATORYCLIA [id number] [place] [address] [place] MCHC (RBC) [Mass/Vol] 31.4 g/dL Normal 30.5-36.0 [facility] Comment on above: Order Comment: Speci men Type: BLOOD SPECIMENOrdering Facility: [facility] Address: [address] [place] [address] Performed By: #### 5 8410-2 ####MORGAN LABORATORYCLIA [id number] [place] [address] [place] MCV (RBC) [Entitic vol] 85.1 fL Normal 80.0-100.0 [facility] Comment on above: Order Comment: Speci men Type: BLOOD SPECIMENOrdering Facility: [facility] Address: [address] [place] [address] Performed By: #### 5 8410-2 ####MORGAN LABORATORYCLIA [id number] [place] [address] [place] Nucleated RBC (Bld) [#/Vol] 10*3/uL Normal <0.01 [facility] Comment on above: Order Comment: Speci men Type: BLOOD SPECIMENOrdering Facility: [facility] Address: [address] [place] [address] Performed By: #### 5 8410-2 ####MORGAN LABORATORYCLIA [id number] [place] [address] [place] Platelet mean volume (Bld) [Entitic vol] 10.2 fL Normal 9.0-12.7 [facility] Comment on above: Order Comment: Speci men Type: BLOOD SPECIMENOrdering Facility: [facility] Address: [address] [place] [address] Performed By: #### 5 8410-2 ####MORGAN LABORATORYCLIA [id number] [place] [address] [place] Platelets (Bld) [#/Vol] 324 10*3/uL Normal 150-400 [facility] Comment on above: Order Comment: Speci men Type: BLOOD SPECIMENOrdering Facility: [facility] Address: [address] [place] [address] Performed By: #### 5 8410-2 ####MORGAN LABORATORYCLIA [id number] [address] RBC (Bld) [#/Vol] 3.48 10*6/uL Low 3.90-5.20 [facility] Comment on above: Order Comment: Speci men Type: BLOOD SPECIMENOrdering Facility: [facility] Address: [address] [place] [address] Performed By: #### 5 8410-2 ####MORGAN LABORATORYCLIA [id number] [address] WBC (Bld) [#/Vol] 5.12 10*3/uL Normal 3.70-11.00 [facility] Comment on above: Order Comment: Speci men Type: BLOOD SPECIMENOrdering Facility: [facility] Address: [address] [place] [address] Performed By: #### 5 8410-2 ####MORGAN LABORATORYCLIA [id number] [address] CBC panel Auto (Bld)on 06-28 Erythrocyte distribution width (RBC) [Ratio] 16.6 % High 11.5 - 15.0 % [facility] Hematocrit (Bld) [Volume fraction] 28.8 % Low 36.0 - 46.0 % [facility] Hemoglobin (Bld) [Mass/Vol] 9.0 g/dL Low 11.5 - 15.5 g/dL [facility] Interpretation and review of laboratory results Abnormal [facility] MCH (RBC) [Entitic mass] 26.8 pg 26.0 - 34.0 pg [facility] MCHC (RBC) [Mass/Vol] 31.3 g/dL 30.5 - 36.0 g/dL [facility] MCV (RBC) [Entitic vol] 85.7 fL 80.0 - 100.0 fL [facility] Nucleated RBC (Bld) [#/Vol] NINF [facility] Platelet mean volume (Bld) [Entitic vol] 10.5 fL 9.0 - 12.7 fL [facility] Platelets (Bld) [#/Vol] 316 10*3/uL [facility] RBC (Bld) [#/Vol] 3.36 10*6/uL Low 3.90 - 5.2 0 m/uL [facility] WBC (Bld) [#/Vol] 5.27 10*3/uL [facility] Erythrocyte distribution width (RBC) [Ratio] 16.6 % High 11.5-15.0 [facility] Comment on above: Order Comment: Speci men Type: BLOOD SPECIMEN [facility] Address: [address] [place] [address] Performed By: #### 2 276-4 #### [employer] CLIA [id number] [address] [place] [address] [place] Hematocrit (Bld) [Volume fraction] 28.8 % Low 36.0-46.0 [facility] Comment on above: Order Comment: Speci men Type: BLOOD SPECIMEN [facility] Address: [address] [place] [address] Performed By: #### 2 276-4 #### [employer] CLIA [id number] [address] [place] [address] [place] Hemoglobin (Bld) [Mass/Vol] 9.0 g/dL Low 11.5-15.5 [facility] Comment on above: Order Comment: Speci men Type: BLOOD SPECIMEN [facility] Address: [address] [place] [address] Performed By: #### 2 276-4 #### [facility] CLIA [id number] [address] [place] [address] [place] MCH (RBC) [Entitic mass] 26.8 pg Normal 26.0-34.0 [facility] Comment on above: Order Comment: Speci men Type: BLOOD SPECIMEN [facility] Address: [address] [place] [address] Performed By: #### 2 276-4 #### [facility] CLIA [id number] [address] [place] [address] [place] MCHC (RBC) [Mass/Vol] 31.3 g/dL Normal 30.5-36.0 [facility] Comment on above: Order Comment: Speci men Type: BLOOD SPECIMEN [facility] Address: [address] [place] [address] Performed By: #### 2 276-4 #### [facility] CLIA [id number] [address] [place] [address] [place] MCV (RBC) [Entitic vol] 85.7 fL Normal 80.0-100.0 [facility] Comment on above: Order Comment: Speci men Type: BLOOD SPECIMEN [facility] Address: [address] [place] [address] Performed By: #### 2 276-4 #### [facility] CLIA [id number] [address] [place] [address] [place] Nucleated RBC (Bld) [#/Vol] 10*3/uL Normal <0.01 [facility] Comment on above: Order Comment: Speci men Type: BLOOD SPECIMEN [facility] Address: [address] [place] [address] Performed By: #### 2 276-4 #### [facility] CLIA [id number] [address] [place] [address] [place] Platelet mean volume (Bld) [Entitic vol] 10.5 fL Normal 9.0-12.7 [facility] Comment on above: Order Comment: Speci men Type: BLOOD SPECIMEN [facility] Address: [address] [place] [address] Performed By: #### 2 276-4 #### [facility] CLIA [id number] [address] [place] [address] [place] Platelets (Bld) [#/Vol] 316 10*3/uL Normal 150-400 [facility] Comment on above: Order Comment: Speci men Type: BLOOD SPECIMEN [facility] Address: [address] [place] [address] Performed By: #### 2 276-4 #### [facility] CLIA [id number] [address] [place] [address] [place] RBC (Bld) [#/Vol] 3.36 10*6/uL Low 3.90-5.20 [facility] Comment on above: Order Comment: Speci men Type: BLOOD SPECIMEN [facility] Address: [address] [place] [address] Performed By: #### 2 276-4 #### [facility] CLIA [id number] [address] [place] [address] [place] WBC (Bld) [#/Vol] 5.27 10*3/uL Normal 3.70-11.00 [facility] Comment on above: Order Comment: Speci men Type: BLOOD SPECIMEN [facility] Address: [address] [place] [address] Performed By: #### 2 276-4 #### [facility] CLIA [id number] [address] [place] [address] [place] FERRITINon 06-27-2024 Ferritin [Mass/Vol] 67.5 ng/mL 14.7 - 205.1 ng/mL [facility] Ferritin SerPl-mCncon 2023 Ferritin [Mass/Vol] 67.5 ng/mL Normal 14.7-205.1 [facility] Comment on above: Order Comment: Speci men Type: BLOOD SPECIMEN [facility] Address: [address] [place] [address] Performed By: #### 2 276-4 #### [facility] CLIA [id number] [address] [place] [address] [place] Ferritin [Mass/Vol]on 2023 Interpretation and review of laboratory results Normal [facility] Iron and Iron binding capaci ty panelon 06-27-2024 Interpretation and review of laboratory results Abnormal [facility] Iron [Mass/Vol] 30 ug/dL Low 41 - 186 ug/dL [facility] Iron binding capacity [Mass/Vol] 298 ug/dL 232 - 386 ug/dL [facility] Iron/TIBC [Molar ratio] 10.1 % Low 15.0 - 57.0 % [facility] Iron [Mass/Vol] 30 ug/dL Low 41-186 [facility] Comment on above: Order Comment: Speci men Type: BLOOD SPECIMEN [facility] Address: [address] [place] [address] Performed By: #### 2 276-4 #### [facility] CLIA [id number] [address] [place] [address] [place] Iron binding capacity [Mass/Vol] 298 ug/dL Normal 232-386 [facility] Comment on above: Order Comment: Rhina mason Type: BLOOD SPECIMEN [facility] Address: [address] [place] [address] Performed By: #### 2 276-4 #### [facility] CLIA [id number] [address] [place] [address] [place] Iron/TIBC [Molar ratio] 10.1 % Low 15.0-57.0 [facility] Comment on above: Order Comment: Rhina mason Type: BLOOD SPECIMEN [facility] Address: [address] [place] [address] Performed By: #### 2 276-4 #### [facility] CLIA [id number] [address] [place] [address] [place] CBC panel Auto (Bld)on 06-25 Erythrocyte distribution width (RBC) [Ratio] 15.9 % High 11.5 - 15.0 % [facility] Hematocrit (Bld) [Volume fraction] 28.7 % Low 36.0 - 46.0 % [facility] Hemoglobin (Bld) [Mass/Vol] 9.0 g/dL Low 11.5 - 15.5 g/dL [facility] Interpretation and review of laboratory results Abnormal [facility] MCH (RBC) [Entitic mass] 26.7 pg 26.0 - 34.0 pg [facility] MCHC (RBC) [Mass/Vol] 31.4 g/dL 30.5 - 36.0 g/dL [facility] MCV (RBC) [Entitic vol] 85.2 fL 80.0 - 100.0 fL [facility] Nucleated RBC (Bld) [#/Vol] NINF [facility] Platelet mean volume (Bld) [Entitic vol] 10.8 fL 9.0 - 12.7 fL [facility] Platelets (Bld) [#/Vol] 315 10*3/uL [facility] RBC (Bld) [#/Vol] 3.37 10*6/uL Low 3.90 - 5.2 0 m/uL [facility] WBC (Bld) [#/Vol] 4.96 10*3/uL [facility] Erythrocyte distribution width (RBC) [Ratio] 15.9 % High 11.5-15.0 [facility] Comment on above: Order Comment: Speci men Type: BLOOD SPECIMEN [facility] Address: [address] [place] [address] Performed By: #### 2 4362-6 #### [facility] CLIA [id number] [address] [place] [address] [place] Hematocrit (Bld) [Volume fraction] 28.7 % Low 36.0-46.0 [facility] Comment on above: Order Comment: Speci men Type: BLOOD SPECIMEN Ordering Facility: [facility] Address: [address] [place] [address] Performed By: #### 2 4362-6 #### [facility] CLIA [id number] [address] [place] [address] [place] Hemoglobin (Bld) [Mass/Vol] 9.0 g/dL Low 11.5-15.5 [facility] Comment on above: Order Comment: Speci men Type: BLOOD SPECIMEN Ordering Facility: [facility] Address: [address] [place] [address] Performed By: #### 2 4362-6 #### [facility] CLIA [id number] [address] [place] [address] [place] MCH (RBC) [Entitic mass] 26.7 pg Normal 26.0-34.0 [facility] Comment on above: Order Comment: Speci men Type: BLOOD SPECIMEN Ordering Facility: [facility] Address: [address] [place] [address] Performed By: #### 2 4362-6 #### [facility] CLIA [id number] [address] [place] [address] [place] MCHC (RBC) [Mass/Vol] 31.4 g/dL Normal 30.5-36.0 [facility] Comment on above: Order Comment: Speci men Type: BLOOD SPECIMEN Ordering Facility: [facility] Address: [address] [place] [address] Performed By: #### 2 4362-6 #### [facility] CLIA [id number] [address] [place] [address] [place] MCV (RBC) [Entitic vol] 85.2 fL Normal 80.0-100.0 [facility] Comment on above: Order Comment: Speci men Type: BLOOD SPECIMEN Ordering Facility: [facility] Address: [address] [place] [address] Performed By: #### 2 4362-6 #### [facility] CLIA [id number] [address] [place] [address] [place] Nucleated RBC (Bld) [#/Vol] 10*3/uL Normal <0.01 [facility] Comment on above: Order Comment: Speci men Type: BLOOD SPECIMEN Ordering Facility: [facility] Address: [address] [place] [address] Performed By: #### 2 4362-6 #### [facility] CLIA [id number] [address] [place] [address] [place] Platelet mean volume (Bld) [Entitic vol] 10.8 fL Normal 9.0-12.7 [facility] Comment on above: Order Comment: Speci men Type: BLOOD SPECIMEN Ordering Facility: [facility] Address: [address] [place] [address] Performed By: #### 2 4362-6 #### [facility] CLIA [id number] [address] [place] [address] [place] Platelets (Bld) [#/Vol] 315 10*3/uL Normal 150-400 [facility] Comment on above: Order Comment: Speci men Type: BLOOD SPECIMEN Ordering Facility: [facility] Address: [address] [place] [address] Performed By: #### 2 4362-6 #### [facility] CLIA [id number] [address] [place] [address] [place] RBC (Bld) [#/Vol] 3.37 10*6/uL Low 3.90-5.20 [facility] Comment on above: Order Comment: Speci men Type: BLOOD SPECIMEN Ordering Facility: [facility] Address: [address] [place] [address] Performed By: #### 2 4362-6 #### [facility] CLIA [id number] [address] [place] [address] [place] WBC (Bld) [#/Vol] 4.96 10*3/uL Normal 3.70-11.00 [facility] Comment on above: Order Comment: Speci men Type: BLOOD SPECIMEN Ordering Facility: [facility] Address: [address] [place] [address] Performed By: #### 2 4362-6 #### [facility] CLIA [id number] [address] [place] [address] [place] Basic metabolic 2000 panelon 06-21-2024 Anion gap [Moles/Vol] 12 mmol/L 8 - 15 mmol/L [facility] Calcium [Mass/Vol] 9.3 mg/dL 8.5 - 10. 2 mg/dL [facility] Chloride [Moles/Vol] 108 mmol/L High 98 - 10 7 mmol/L [facility] CO2 [Moles/Vol] 21 mmol/L Low 22 - 30 mmol/L [facility] Creatinine [Mass/Vol] 0.92 mg/dL 0.58 - 0.96 mg/dL [facility] GFR/1.73 sq M.predicted among non-blacks MDRD (S/P/Bld) [Vol rate/Area] 62 mL/min/{1.73_m2} - PINF [facility] Comment on above: Estimated Glomerular Filtration [...] mg/dL High 74 - 99 mg/dL [facility] Comment on above: The [place] Di[employer] Association (ADA) provides guidance for [...] Standards of Medical Care in Diabetes 2016, [place] [employer]. Diabetes Care. 2016.39(Suppl 1). Interpretation and review of laboratory results Abnormal [facility] Potassium [Moles/Vol] 4.6 mmol/L 3.7 - 5.1 mmol/L [facility] Sodium [Moles/Vol] 141 mmol/L 136 - 144 mmol/L [facility] Urea nitrogen [Mass/Vol] 22 mg/dL High 7 - 21 mg/dL [facility] Anion gap [Moles/Vol] 12 mmol/L Normal 8-15 [facility] Comment on above: Order Comment: Speci men Type: BLOOD SPECIMEN Ordering Facility: [facility] Address: [address], [place] [address] Performed By: #### 2 4362-6 #### [facility] CLIA [id number] [address] [place] [address] [place] Calcium [Mass/Vol] 9.3 mg/dL Normal 8.5-10.2 [facility] Comment on above: Order Comment: Speci men Type: BLOOD SPECIMEN Ordering Facility: [facility] Address: [address] [place] [address] Performed By: #### 2 4362-6 #### [facility] CLIA [id number] [address] [place] [address] [place] Chloride [Moles/Vol] 108 mmol/L High 98-107 [facility] Comment on above: Order Comment: Speci men Type: BLOOD SPECIMEN Ordering Facility: [facility] Address: [address] [place] [address] Performed By: #### 2 4362-6 #### [facility] CLIA [id number] [address] [place] [address] [place] CO2 [Moles/Vol] 21 mmol/L Low 22-30 [facility] Comment on above: Order Comment: Speci men Type: BLOOD SPECIMEN Ordering Facility: [facility] Address: [address] [place] [address] Performed By: #### 2 4362-6 #### [facility] CLIA [id number] [address] [place] [address] [place] Creatinine [Mass/Vol] 0.92 mg/dL Normal 0.58-0.96 [facility] Comment on above: Order Comment: Speci men Type: BLOOD SPECIMEN Ordering Facility: [facility] Address: [address] [place] [address] Performed By: #### 2 4362-6 #### [facility] CLIA [id number] [address] [place] [address] [place] Creatinine and Glomerular filtration rate.predicted panel (S/P/Bld) 62 mL/min/1.73m??? Normal >=60 [facility] Comment on above: Order Comment: Rhina mason Type: BLOOD SPECIMEN Ordering Facility: [facility] Address: [address] [place] [address] Result Comment: Isa mated Glomerular Filtration Rate [...] GFR. Performed By: #### 2 4362-6 #### [facility] CLIA [id number] [address] [place] [address] [place] Glucose [Mass/Vol] 101 mg/dL High 74-99 [facility] Comment on above: Order Comment: Rhina mason Type: BLOOD SPECIMEN Ordering Facility: [facility] Address: [address] [place] [address] Result Comment: The [place] Diabetes Association (ADA) provides guidance for cutoff [...] Standards of Medical Care in Diabetes 2016, [place] [employer]. Diabetes Care. 2016.39(Suppl 1). Performed By: #### 2 4362-6 #### [facility] CLIA [id number] [address] [place] [address] [place] Potassium [Moles/Vol] 4.6 mmol/L Normal 3.7-5.1 [facility] Comment on above: Order Comment: Speci men Type: BLOOD SPECIMEN Ordering Facility: [facility] Address: [address] [place] [address] Performed By: #### 2 4362-6 #### [facility] CLIA [id number] [address] [place] [address] [place] Sodium [Moles/Vol] 141 mmol/L Normal 136-144 [facility] Comment on above: Order Comment: Speci men Type: BLOOD SPECIMEN Ordering Facility: [facility] Address: [address] [place] [address] Performed By: #### 2 4362-6 #### [facility] CLIA [id number] [address] [place] [address] [place] Urea nitrogen [Mass/Vol] 22 mg/dL High 7-21 [facility] Comment on above: Order Comment: Speci men Type: BLOOD SPECIMEN Ordering Facility: [facility] Address: [address] [place] [address] Performed By: #### 2 4362-6 #### [facility] CLIA [id number] [address] [place] [address] [place] CBC panel Auto (Bld)on 06-21 Erythrocyte distribution width (RBC) [Ratio] 15.8 % High 11.5 - 15.0 % [facility] Hematocrit (Bld) [Volume fraction] 34.2 % Low 36.0 - 46.0 % [facility] Hemoglobin (Bld) [Mass/Vol] 10.6 g/dL Low 11.5 - 15.5 g/dL [facility] Interpretation and review of laboratory results Abnormal [facility] MCH (RBC) [Entitic mass] 26.4 pg 26.0 - 34.0 pg [facility] MCHC (RBC) [Mass/Vol] 31.0 g/dL 30.5 - 36.0 g/dL [facility] MCV (RBC) [Entitic vol] 85.3 fL 80.0 - 100.0 fL [facility] Nucleated RBC (Bld) [#/Vol] NINF [facility] Platelet mean volume (Bld) [Entitic vol] 10.7 fL 9.0 - 12.7 fL [facility] Platelets (Bld) [#/Vol] 300 10*3/uL [facility] RBC (Bld) [#/Vol] 4.01 10*6/uL 3.90 - 5.2 0 m/uL [facility] WBC (Bld) [#/Vol] 5.52 10*3/uL [facility] Erythrocyte distribution width (RBC) [Ratio] 15.8 % High 11.5-15.0 [facility] Comment on above: Order Comment: Speci men Type: BLOOD SPECIMEN Ordering Facility: [facility] Address: [address] [place] [address] Performed By: #### 2 4362-6 #### [facility] CLIA [id number] [address] [place] [address] [place] Hematocrit (Bld) [Volume fraction] 34.2 % Low 36.0-46.0 [facility] Comment on above: Order Comment: Speci men Type: BLOOD SPECIMEN Ordering Facility: [facility] Address: [address] [place] [address] Performed By: #### 2 4362-6 #### [facility] CLIA [id number] [address] [place] [address] [place] Hemoglobin (Bld) [Mass/Vol] 10.6 g/dL Low 11.5-15.5 [facility] Comment on above: Order Comment: Speci men Type: BLOOD SPECIMEN Ordering Facility: [facility] Address: [address] [place] [address] Performed By: #### 2 4362-6 #### [facility] CLIA [id number] [address] [place] [address] [place] MCH (RBC) [Entitic mass] 26.4 pg Normal 26.0-34.0 [facility] Comment on above: Order Comment: Speci men Type: BLOOD SPECIMEN Ordering Facility: [facility] Address: [address] [place] [address] Performed By: #### 2 4362-6 #### [facility] CLIA [id number] [address] [place] [address] [place] MCHC (RBC) [Mass/Vol] 31.0 g/dL Normal 30.5-36.0 [facility] Comment on above: Order Comment: Speci men Type: BLOOD SPECIMEN Ordering Facility: [facility] Address: [address] [place] [address] Performed By: #### 2 4362-6 #### [facility] CLIA [id number] [address] [place] [address] [place] MCV (RBC) [Entitic vol] 85.3 fL Normal 80.0-100.0 [facility] Comment on above: Order Comment: Speci men Type: BLOOD SPECIMEN Ordering Facility: [facility] Address: [address] [place] [address] Performed By: #### 2 4362-6 #### [facility] CLIA [id number] [address] [place] [address] [place] Nucleated RBC (Bld) [#/Vol] 10*3/uL Normal <0.01 [facility] Comment on above: Order Comment: Speci men Type: BLOOD SPECIMEN Ordering Facility: [facility] Address: [address] [place] [address] Performed By: #### 2 4362-6 #### [facility] CLIA [id number] [address] [place] [address] [place] Platelet mean volume (Bld) [Entitic vol] 10.7 fL Normal 9.0-12.7 [facility] Comment on above: Order Comment: Speci men Type: BLOOD SPECIMEN Ordering Facility: [facility] Address: [address] [place] [address] Performed By: #### 2 4362-6 #### [facility] CLIA [id number] [address] [place] [id number], [place] [address] [place] Platelets (Bld) [#/Vol] 300 10*3/uL Normal 150-400 [facility] Comment on above: Order Comment: Speci men Type: BLOOD SPECIMEN Ordering Facility: [facility] Address: [address] [place] [address] Performed By: #### 2 4362-6 #### [facility] CLIA [id number] [address] [place] [address] [place] RBC (Bld) [#/Vol] 4.01 10*6/uL Normal 3.90-5.20 [facility] Comment on above: Order Comment: Speci men Type: BLOOD SPECIMEN Ordering Facility: [facility] Address: [address] [place] [address] Performed By: #### 2 4362-6 #### [facility] CLIA [id number] [address] [place] [address] [place] WBC (Bld) [#/Vol] 5.52 10*3/uL Normal 3.70-11.00 [facility] Comment on above: Order Comment: Speci men Type: BLOOD SPECIMEN Ordering Facility: [facility] Address: [address] [place] [address] Performed By: #### 2 4362-6 #### [facility] CLIA [id number] [address] [place] [address] [place] Basic metabolic 2000 panelon 06-19-2024 Anion gap [Moles/Vol] 10 mmol/L Normal 8-15 [facility] Comment on above: Order Comment: Speci men Type: BLOOD SPECIMEN Ordering Facility: [facility] Address: [address] [place] [address] Performed By: #### 2 4321-2, 10437-4, 14677-8 #### [facility] CLIA [id number] [address] [place] [address] [place] Calcium [Mass/Vol] 8.9 mg/dL Normal 8.5-10.2 [facility] Comment on above: Order Comment: Speci men Type: BLOOD SPECIMEN Ordering Facility: [facility] Address: [address] [place] [address] Performed By: #### 2 4321-2, 30034-8, #### [facility] CLIA [id number] [address] [place] Chloride [Moles/Vol] 109 mmol/L High 98-107 [facility] Comment on above: Order Comment: Speci men Type: BLOOD SPECIMEN Ordering Facility: [facility] Address: [address] [place] [address] Performed By: #### 2 4321-2, 47292-1, #### [facility] CLIA [id number] [address] [place] CO2 [Moles/Vol] 21 mmol/L Low 22-30 [facility] Comment on above: Order Comment: Speci men Type: BLOOD SPECIMEN Ordering Facility: [facility] Address: [address] [place] [address] Performed By: #### 2 4321-2, 80789-7, #### [facility] CLIA [id number] [address] [place] Creatinine [Mass/Vol] 1.04 mg/dL High 0.58-0.96 [facility] Comment on above: Order Comment: Speci men Type: BLOOD SPECIMEN Ordering Facility: [facility] Address: [address] [place] [address] Performed By: #### 2 4321-2, 42288-6, #### [facility] CLIA [id number] [address] [place] Creatinine and Glomerular filtration rate.predicted panel (S/P/Bld) 53 mL/min/1.73m??? Low >=60 [facility] Comment on above: Order Comment: Speci men Type: BLOOD SPECIMEN Ordering Facility: [facility] Address: [address] [place] [address] Result Comment: Isa mated Glomerular Filtration Rate [...] actual GFR. Performed By: #### 2 4321-2, 16496-2, #### [facility] CLIA [id number] [address] [place] [address] [place] Glucose [Mass/Vol] 103 mg/dL High 74-99 [facility] Comment on above: Order Comment: Rhina mason Type: BLOOD SPECIMEN Ordering Facility: [facility] Address: [address] [place] [address] Result Comment: The [place] Diabetes [employer] (ADA) provides guidance for cutoff [...] Standards of Medical Care in Diabetes 2016, [place] [employer]. Diabetes Care. 2016.39(Suppl 1). Performed By: #### 2 4321-2, 41674-2, #### [facility] CLIA [id number] [address] [place] [address] [place] Potassium [Moles/Vol] 4.8 mmol/L Normal 3.7-5.1 [facility] Comment on above: Order Comment: Rhina mason Type: BLOOD SPECIMEN Ordering Facility: [facility] Address: [address] [place] [address] Performed By: #### 2 4321-2, 23886-8, #### [facility] CLIA [id number] [address] [place] Sodium [Moles/Vol] 140 mmol/L Normal 136-144 [facility] Comment on above: Order Comment: Speci men Type: BLOOD SPECIMEN Ordering Facility: [facility] Address: [address] [place] [address] Performed By: #### 2 4321-2, 24181-6, #### [facility] CLIA [id number] [address] [place] [address] [place] Urea nitrogen [Mass/Vol] 25 mg/dL High 7-21 [facility] Comment on above: Order Comment: Speci men Type: BLOOD SPECIMEN Ordering Facility: [facility] Address: [address] [place] [address] Performed By: #### 2 4321-2, 00656-8, #### [facility] CLIA [id number] [address] [place] CBC panel Auto (Bld)on 06-19 Erythrocyte distribution width (RBC) [Ratio] 15.9 % High 11.5-15.0 [facility] Comment on above: Order Comment: Speci men Type: BLOOD SPECIMEN Ordering Facility: [facility] Address: [address] [place] [address] Performed By: #### 2 4321-2, 49638-6, #### [facility] CLIA [id number] [address] [place] [address] [place] Hematocrit (Bld) [Volume fraction] 30.6 % Low 36.0-46.0 [facility] Comment on above: Order Comment: Speci men Type: BLOOD SPECIMEN Ordering Facility: [facility] Address: [address] [place] [address] Performed By: #### 2 4321-2, 72894-0, #### [facility] CLIA [id number] [address] [place] [address] [place] Hemoglobin (Bld) [Mass/Vol] 9.5 g/dL Low 11.5-15.5 [facility] Comment on above: Order Comment: Speci men Type: BLOOD SPECIMEN Ordering Facility: [facility] Address: [address] [place] [address] Performed By: #### 2 4321-2, 37485-4, #### [facility] CLIA [id number] [address] MCH (RBC) [Entitic mass] 26.5 pg Normal 26.0-34.0 [facility] Comment on above: Order Comment: Speci men Type: BLOOD SPECIMEN Ordering Facility: [facility] Address: [address] [place] [address] Performed By: #### 2 4321-2, 20131-7, #### [facility] CLIA [id number] [address] MCHC (RBC) [Mass/Vol] 31.0 g/dL Normal 30.5-36.0 [facility] Comment on above: Order Comment: Speci men Type: BLOOD SPECIMEN Ordering Facility: [facility] Address: [address] [place] [address] Performed By: #### 2 4321-2, 78183-0, #### [facility] CLIA [id number] [address] MCV (RBC) [Entitic vol] 85.5 fL Normal 80.0-100.0 [facility] Comment on above: Order Comment: Speci men Type: BLOOD SPECIMEN Ordering Facility: [facility] Address: [address] [place] [address] Performed By: #### 2 4321-2, 65784-4, #### [facility] CLIA [id number] [address] Nucleated RBC (Bld) [#/Vol] 10*3/uL Normal <0.01 [facility] Comment on above: Order Comment: Speci men Type: BLOOD SPECIMEN Ordering Facility: [facility] Address: [address] [place] [address] Performed By: #### 2 4321-2, 49391-1, #### [facility] CLIA [id number] [address] [place] Platelet mean volume (Bld) [Entitic vol] 10.4 fL Normal 9.0-12.7 [facility] Comment on above: Order Comment: Speci men Type: BLOOD SPECIMEN Ordering Facility: [facility] Address: [address] [place] [address] Performed By: #### 2 4321-2, 85784-6, #### [facility] CLIA [id number] [address] [place] Platelets (Bld) [#/Vol] 245 10*3/uL Normal 150-400 [facility] Comment on above: Order Comment: Speci men Type: BLOOD SPECIMEN Ordering Facility: [facility] Address: [address] [place] [address] Performed By: #### 2 4321-2, 85098-0, #### [facility] CLIA [id number] [address] [place] RBC (Bld) [#/Vol] 3.58 10*6/uL Low 3.90-5.20 [facility] Comment on above: Order Comment: Speci men Type: BLOOD SPECIMEN Ordering Facility: [facility] Address: [facility] [place] [address] Performed By: #### 2 4321-2, 56101-7, #### [facility] CLIA [id number] [address] [place] [address] [place] WBC (Bld) [#/Vol] 4.67 10*3/uL Normal 3.70-11.00 [facility] Comment on above: Order Comment: Speci men Type: BLOOD SPECIMEN Ordering Facility: [facility] Address: [facility] [place] [address] Performed By: #### 2 4321-2, 63082-2, #### [facility] CLIA [id number] [address] OF [facility] CNDSon 06-19-2024 CNDS HNO ID: [id number] Author: DON EDWARDS DO Service: Hospital Medicine [...] Doctor: Don Edwards DO Primary Care Provider: aJred Evans MD, MD My Medical Team Members: [...] eliquis. She was seen by therapy and residential facility was recommended. He slowly was improving. She was discharged to residential facility in stable condition. OTHER PROBLEMS/DIAGNOSIS: Principal [...] call for appointment?: Yes Jared Evans MD [phone] [address] [facility] [address] PCP Requested Referral Follow-Up Appointment When: In 2 weeks Patient/Parents to call for appointment?: Yes Hermila Padilla MD [phone] [facility] [address] PCP Requested Referral Follow-Up Appointment For hydronephrosis and renal lesion When: In 2 weeks Patient/Parents to call for appointment?: Yes Mikhail Vuong Jr., MD [phone] [address] [facility] [address] PCP Requested Referral Follow-Up Appointment With: neurology When: In 4 weeks Patient/Parents to call for appointment?: Yes Additional Provider to Provider Information: Treatment Team: Attending Provider: Don Edwards DO Consulting: Pratibha Logan MD Consulting: Torsten Otoole MD Primary Service: [place] [facility] Critical Issues: SPECIALIST FOLLOW-UP: urology, cardiology, neurology LABS AND PROCEDURES PENDING AT DISCHARGE: No pending results. FOLLOW-UP APPOINTMENTS ALREADY SCHEDULED WITH A [facility] PROVIDER: No future appointments. Discharge Information Row Name ED to Hosp-Admission (Current) from 06/10/2024 in [place] 8100 NEURO/CARD Rehab Facility Agency [facility] ALLERGIES Allergen Reactions Percocet [Oxycodone* Itching DISCHARGE MEDICA (more content not included)... Normal [facility] Basic metabolic 2000 panelon 06-18-2024 Anion gap [Moles/Vol] 10 mmol/L Normal 8-15 [facility] Comment on above: Order Comment: Speci men Type: BLOOD SPECIMEN Ordering Facility: [facility] Address: [address] [place] [address] Performed By: #### 2 4321-2, 41332-5, #### [facility] CLIA [id number] [address] [place] [address] [place] Calcium [Mass/Vol] 8.9 mg/dL Normal 8.5-10.2 [facility] Comment on above: Order Comment: Speci men Type: BLOOD SPECIMEN Ordering Facility: [facility] Address: [address] [place] [address] Performed By: #### 2 4321-2, 71615-1, #### [facility] CLIA [id number] 1 [place] [address] [place] Chloride [Moles/Vol] 110 mmol/L High 98-107 [facility] Comment on above: Order Comment: Speci men Type: BLOOD SPECIMEN Ordering Facility: [facility] Address: [address] [place] [address] Performed By: #### 2 4321-2, 82936-8, #### [facility] CLIA [id number] [address] [place] [address] [place] CO2 [Moles/Vol] 21 mmol/L Low 22-30 [facility] Comment on above: Order Comment: Speci men Type: BLOOD SPECIMEN Ordering Facility: [facility] Address: [address] [place] [address] Performed By: #### 2 4321-2, 38533-8, #### [facility] CLIA [id number] [address] STATES OF [facility] Creatinine [Mass/Vol] 0.96 mg/dL Normal 0.58-0.96 [facility] Comment on above: Order Comment: Rhina mason Type: BLOOD SPECIMEN Ordering Facility: [facility] Address: [address] [place] [address] Performed By: #### 2 4321-2, 15846-3, #### [facility] CLIA [id number] [address] Creatinine and Glomerular filtration rate.predicted panel (S/P/Bld) 58 mL/min/1.73m??? Low >=60 [facility] Comment on above: Order Comment: Rhina mason Type: BLOOD SPECIMEN Ordering Facility: [facility] Address: [address] [place] [address] Result Comment: Isa mated Glomerular Filtration Rate [...] actual GFR. Performed By: #### 2 4321-2, 95060-4, #### [facility] CLIA [id number] [address] OF [facility] Glucose [Mass/Vol] 112 mg/dL High 74-99 [facility] Comment on above: Order Comment: Rhina mason Type: BLOOD SPECIMEN Ordering Facility: [facility] Address: [address] [place] [address] Result Comment: The [place] Diabetes [employer] (ADA) provides guidance for cutoff [...] Standards of Medical Care in Diabetes 2016, [place] [employer]. Diabetes Care. 2016.39(Suppl 1). Performed By: #### 2 4321-2, 46216-6, #### [facility] CLIA [id number] [address] [place] Potassium [Moles/Vol] 4.4 mmol/L Normal 3.7-5.1 [facility] Comment on above: Order Comment: Speci men Type: BLOOD SPECIMEN Ordering Facility: [facility] Address: [address] [place] [address] Performed By: #### 2 4321-2, 55012-5, #### [facility] CLIA [id number] [address] STATES OF [facility] Sodium [Moles/Vol] 141 mmol/L Normal 136-144 [facility] Comment on above: Order Comment: Speci men Type: BLOOD SPECIMEN Ordering Facility: [facility] Address: [address] [place] [address] Performed By: #### 2 4321-2, 77308-7, #### [facility] CLIA [id number] [address] [place] Urea nitrogen [Mass/Vol] 22 mg/dL High 7-21 [facility] Comment on above: Order Comment: Speci men Type: BLOOD SPECIMEN Ordering Facility: [facility] Address: [address] [place] [address] Performed By: #### 2 4321-2, 83438-0, #### [facility] CLIA [id number] [address] [place] CBC panel Auto (Bld)on 06-18 Erythrocyte distribution width (RBC) [Ratio] 15.9 % High 11.5-15.0 [facility] Comment on above: Order Comment: Speci men Type: BLOOD SPECIMENOrdering Facility: [facility] Address: [address] [place] [address] Performed By: #### 5 8410-2 ####[facility] [id number] [address] Hematocrit (Bld) [Volume fraction] 34.3 % Low 36.0-46.0 [facility] Comment on above: Order Comment: Speci men Type: BLOOD SPECIMENOrdering Facility: [facility] Address: [address] [place] [address] Performed By: #### 5 8410-2 ####[facility]ORY[facility]IA [id number] [address] OF [facility] Hemoglobin (Bld) [Mass/Vol] 10.7 g/dL Low 11.5-15.5 [facility] Comment on above: Order Comment: Speci men Type: BLOOD SPECIMENOrdering Facility: [facility] Address: [address] [place] [address] Performed By: #### 5 8410-2 ####[facility]ORYCLIA [id number] [address] MCH (RBC) [Entitic mass] 26.7 pg Normal 26.0-34.0 [facility] Comment on above: Order Comment: Speci men Type: BLOOD SPECIMENOrdering Facility: [facility] Address: [address] [place] [address] Performed By: #### 5 8410-2 ####[facility]ORYCLIA [id number] [address] [place] MCHC (RBC) [Mass/Vol] 31.2 g/dL Normal 30.5-36.0 [facility] Comment on above: Order Comment: Speci men Type: BLOOD SPECIMENOrdering Facility: [facility] Address: [address] [place] [address] Performed By: #### 5 8410-2 ####[facility]ORYCLIA [id number] [place] [address] [place] MCV (RBC) [Entitic vol] 85.5 fL Normal 80.0-100.0 [facility] Comment on above: Order Comment: Speci men Type: BLOOD SPECIMENOrdering Facility: [facility] Address: [address] [place] [address] Performed By: #### 5 8410-2 ####[facility]ATORYCLIA [id number] [place] [address] [place] Nucleated RBC (Bld) [#/Vol] 10*3/uL Normal <0.01 [facility] Comment on above: Order Comment: Speci men Type: BLOOD SPECIMENOrdering Facility: [facility] Address: [address] [place] [address] Performed By: #### 5 8410-2 ####[facility]ORYCLIA [id number] [address] [place] Platelet mean volume (Bld) [Entitic vol] 10.0 fL Normal 9.0-12.7 [facility] Comment on above: Order Comment: Speci men Type: BLOOD SPECIMENOrdering Facility: [facility] Address: [address] [place] [address] Performed By: #### 5 8410-2 ####[facility]ORYCLIA [id number] [address] [place] Platelets (Bld) [#/Vol] 273 10*3/uL Normal 150-400 [facility] Comment on above: Order Comment: Speci men Type: BLOOD SPECIMENOrdering Facility: [facility] Address: [address] [place] [address] Performed By: #### 5 8410-2 ####[facility]ATORYCLIA [id number] [place] [address] [place] RBC (Bld) [#/Vol] 4.01 10*6/uL Normal 3.90-5.20 [facility] Comment on above: Order Comment: Speci men Type: BLOOD SPECIMENOrdering Facility: [facility] Address: [address] [place] [address] Performed By: #### 5 8410-2 ####[facility]ATORYCLIA [id number] [place] [address] [place] WBC (Bld) [#/Vol] 5.29 10*3/uL Normal 3.70-11.00 [facility] Comment on above: Order Comment: Speci men Type: BLOOD SPECIMENOrdering Facility: [facility] Address: [address] [place] [address] Performed By: #### 5 8410-2 ####[facility]ORYCLIA [id number] [address] [place] Hepatic function 2000 panelo n 06-18-2024 Albumin [Mass/Vol] 3.5 g/dL Low 3.9-4.9 [facility] Comment on above: Order Comment: Speci men Type: BLOOD SPECIMEN Ordering Facility: [facility] Address: [address] [place] [address] Performed By: #### 2 4321-2, 64465-3, #### [facility] CLIA [id number] [address] [place] ALP [Catalytic activity/Vol] 80 U/L Normal 34-123 [facility] Comment on above: Order Comment: Speci men Type: BLOOD SPECIMEN Ordering Facility: [facility] Address: [address] [place] [address] Performed By: #### 2 4321-2, 62654-4, #### [facility] CLIA [id number] [address] [place] ALT With P-5'-P [Catalytic activity/Vol] 16 U/L Normal 7-38 [facility] Comment on above: Order Comment: Speci men Type: BLOOD SPECIMEN Ordering Facility: [facility] Address: [address] [place] [address] Performed By: #### 2 4321-2, 54320-1, #### [facility] CLIA [id number] [address] [place] AST With P-5'-P [Catalytic activity/Vol] 20 U/L Normal 13-35 [facility] Comment on above: Order Comment: Speci men Type: BLOOD SPECIMEN Ordering Facility: [facility] Address: [address] [place] [address] Performed By: #### 2 4321-2, 23693-4, #### [facility] CLIA [id number] [address] [place] Bilirubin [Mass/Vol] 0.3 mg/dL Normal 0.2-1.3 [facility] Comment on above: Order Comment: Speci men Type: BLOOD SPECIMEN Ordering Facility: [facility] Address: [address] [place] [address] Performed By: #### 2 4321-2, 73803-4, #### [facility] CLIA [id number] [address] [place] Bilirubin.conjugated [Mass/Vol] mg/dL Normal <0.2 [facility] Comment on above: Order Comment: Speci men Type: BLOOD SPECIMEN Ordering Facility: [facility] Address: [address] [place] [address] Performed By: #### 2 4321-2, 53731-1, #### [facility] CLIA [id number] [address] [place] Protein [Mass/Vol] 6.0 g/dL Low 6.3-8.0 [facility] Comment on above: Order Comment: Speci men Type: BLOOD SPECIMEN Ordering Facility: [facility] Address: [address] [place] [address] Performed By: #### 2 4321-2, 46005-3, #### [facility] CLIA [id number] 1 [place] [address] [place] Magnesium SerPl-mCncon 06-18 Magnesium [Mass/Vol] 1.9 mg/dL Normal 1.7-2.3 [facility] Comment on above: Order Comment: Speci men Type: BLOOD SPECIMEN Ordering Facility: [facility] Address: [facility] [place] [address] Performed By: #### 2 4321-2, 87792-2, 32503-1 #### [facility] CLIA [id number] [address] NUTRITIONon 06-18-2024 NUTRITION HNO ID: [id number] Author: NELSON AVILA RD Service: Nutrition Therapy [...] Obtained From: Patient Weight Change: 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(s) ([facility] [employer]; 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) MNT Billing: $ Initial Assessment: 1-15 minutes SIGNATURE: Nelson Avila RD PATIENT NAME: Mel Castillo DATE: June 18, 2024 TIME: 11:18 AM Normal [facility] THERAPY NTon 06-18-2024 THERAPY NT HNO ID: [id number] Author: SELENA BARR, PT Service: Physical Therapy Author Type: Physical Therapist Type: Therapy (PT/OT/Speech/Resp) Filed: 06/18/2024 12:53 Note Text: Physical Therapy Treatment Summary SERVICE DATE: 06/18/2024 SERVICE TIME: 1056 to 1129 ROOM: [id number] PT 6 Clicks Score: 16 DISCHARGE RECOMMENDATIONS [...] Lack of coordination-other TREATMENT INTERVENTIONS Therapeutic Activity (40879) Therapeutic Activity (01814) Treatment Minutes: 25 $ Therapeutic Activity (98501) Billed Units: 2 units Timed Code Treatment [...] (more content not included)... Normal [facility] THERAPY NT HNO ID: [id number] Author: ULI JEFFERSON OTR/L Service: Occupational Therapy Author Type: Occupational Therapist Type: Therapy (PT/OT/Speech/Resp) Filed: 06/18/2024 13:34 Note Text: Occupational Therapy Treatment Summary SERVICE DATE: 06/18/2024 SERVICE TIME: 1130 to 1154 ROOM: [id number] OT 6 Clicks Score: 15 DISCHARGE RECOMMENDATIONS [...] General symptoms and signs-other TREATMENT INTERVENTIONS Self Mcfp Management (68675), Cognitive Training (64319 and 21857) Timed Code Treatment (minutes): 24 Skilled Treatment Time (minutes): 24 Self Mcfp Management (74195) Treatment Minutes: 11 $ Self Mcfp Management (57230) Billed Units: 1 unit Minimal assist with meal set-up. Cueing for physical assist with maintaining functional grasp on packaging to tear open. Pt demonstrated impaired hand-eye coordination/visual spatial awareness with bringing food to mouth. Provided further cueing and tactile awareness/sequencing to maximize ease with self feeding. Cognitive Training First 15 Minutes (74604) : 13 $ Cognitive Training First 15 Minutes (33629) Billed Units: 1 unit Facilitated completion of [facility] Mental Examination (UMS) to screen performance with [...] Occupational Therapy, Safety/Judgment, Sitting Balance to Improve [place] with ADLs/Self-Care, Cognitive Skills, Command Following, Expected Functional Level, Feeding Tasks, Low Vision Strategies, Positioning, Visual Scanning/Attention Activities THERAPEUTIC SKILLS USED Activity Dosing, Cues for (more content not included)... Normal [facility] CBC panel Auto (Bld)on 06-17 Erythrocyte distribution width (RBC) [Ratio] 15.7 % High 11.5-15.0 [facility] Comment on above: Order Comment: Speci men Type: BLOOD SPECIMEN Ordering Facility: [facility] Address: [address] [place] [address] Performed By: #### 2 5091-2, 08970-5, #### [facility] CLIA [id number] [address] [place] Hematocrit (Bld) [Volume fraction] 35.1 % Low 36.0-46.0 [facility] Comment on above: Order Comment: Speci men Type: BLOOD SPECIMEN Ordering Facility: [facility] Address: [address] [place] [address] Performed By: #### 2 4321-2, 00708-9, #### [facility] CLIA [id number] [address] [place] Hemoglobin (Bld) [Mass/Vol] 11.0 g/dL Low 11.5-15.5 [facility] Comment on above: Order Comment: Speci men Type: BLOOD SPECIMEN Ordering Facility: [facility] Address: [address] [place] [address] Performed By: #### 2 432-2, 13762-2, #### [facility] CLIA [id number] [address] [place] MCH (RBC) [Entitic mass] 26.4 pg Normal 26.0-34.0 [facility] Comment on above: Order Comment: Speci men Type: BLOOD SPECIMEN Ordering Facility: [facility] Address: [address] [place] [address] Performed By: #### 2 4320-2, 43678-8, #### [facility] CLIA [id number] [address] [place] MCHC (RBC) [Mass/Vol] 31.3 g/dL Normal 30.5-36.0 [facility] Comment on above: Order Comment: Speci men Type: BLOOD SPECIMEN Ordering Facility: [facility] Address: [address] [place] [address] Performed By: #### 2 4321-2, 05050-7, #### [facility] CLIA [id number] [address] MCV (RBC) [Entitic vol] 84.4 fL Normal 80.0-100.0 [facility] Comment on above: Order Comment: Speci men Type: BLOOD SPECIMEN Ordering Facility: [facility] Address: [address] [place] [address] Performed By: #### 2 4321-2, 69799-6, #### [facility] CLIA [id number] [address] Nucleated RBC (Bld) [#/Vol] 10*3/uL Normal <0.01 [facility] Comment on above: Order Comment: Speci men Type: BLOOD SPECIMEN Ordering Facility: [facility] Address: [address] [place] [address] Performed By: #### 2 4321-2, 29950-3, #### [facility] CLIA [id number] [address] Platelet mean volume (Bld) [Entitic vol] 10.1 fL Normal 9.0-12.7 [facility] Comment on above: Order Comment: Speci men Type: BLOOD SPECIMEN Ordering Facility: [facility] Address: [address] [place] [address] Performed By: #### 2 4321-2, 02829-6, #### [facility] CLIA [id number] [address] Platelets (Bld) [#/Vol] 294 10*3/uL Normal 150-400 [facility] Comment on above: Order Comment: Speci men Type: BLOOD SPECIMEN Ordering Facility: [facility] Address: [address] [place] [address] Performed By: #### 2 4321-2, 20215-6, #### [facility] CLIA [id number] [address] [place] RBC (Bld) [#/Vol] 4.16 10*6/uL Normal 3.90-5.20 [facility] Comment on above: Order Comment: Speci men Type: BLOOD SPECIMEN Ordering Facility: [facility] Address: [address] [place] [address] Performed By: #### 2 4321-2, 49868-3, #### [facility] CLIA [id number] [address] [place] [address] [place] WBC (Bld) [#/Vol] 5.63 10*3/uL Normal 3.70-11.00 [facility] Comment on above: Order Comment: Speci men Type: BLOOD SPECIMEN Ordering Facility: [facility] Address: [address] [place] [address] Performed By: #### 2 4321-2, 56068-3, #### [facility] CLIA [id number] [address] [place] CBC panel Auto (Bld)on 06-16 Erythrocyte distribution width (RBC) [Ratio] 15.4 % High 11.5-15.0 [facility] Comment on above: Order Comment: Speci men Type: BLOOD SPECIMEN Ordering Facility: [facility] Address: [address] [place] [address] Performed By: #### 2 4321-2, 44033-3, #### [facility] CLIA [id number] 1 [place] [address] [place] Hematocrit (Bld) [Volume fraction] 34.9 % Low 36.0-46.0 [facility] Comment on above: Order Comment: Speci men Type: BLOOD SPECIMEN Ordering Facility: [facility] Address: [address] [place] [address] Performed By: #### 2 4321-2, 31725-4, #### [facility] CLIA [id number] [address] [place] Hemoglobin (Bld) [Mass/Vol] 10.9 g/dL Low 11.5-15.5 [facility] Comment on above: Order Comment: Speci men Type: BLOOD SPECIMEN Ordering Facility: [facility] Address: [address] [place] [address] Performed By: #### 2 4321-2, 20030-8, #### [facility] CLIA [id number] [address] MCH (RBC) [Entitic mass] 26.4 pg Normal 26.0-34.0 [facility] Comment on above: Order Comment: Speci men Type: BLOOD SPECIMEN Ordering Facility: [facility] Address: [address] [place] [address] Performed By: #### 2 4321-2, 73564-5, #### [facility] CLIA [id number] [address] MCHC (RBC) [Mass/Vol] 31.2 g/dL Normal 30.5-36.0 [facility] Comment on above: Order Comment: Speci men Type: BLOOD SPECIMEN Ordering Facility: [facility] Address: [address] [place] [address] Performed By: #### 2 4321-2, 60792-5, #### [facility] CLIA [id number] [address] MCV (RBC) [Entitic vol] 84.5 fL Normal 80.0-100.0 [facility] Comment on above: Order Comment: Speci men Type: BLOOD SPECIMEN Ordering Facility: [facility] Address: [address] [place] [address] Performed By: #### 2 4321-2, 35464-8, #### [facility] CLIA [id number] [address] Nucleated RBC (Bld) [#/Vol] 10*3/uL Normal <0.01 [facility] Comment on above: Order Comment: Speci men Type: BLOOD SPECIMEN Ordering Facility: [facility] Address: [address] [place] [address] Performed By: #### 2 4321-2, 87709-3, #### [facility] CLIA [id number] [address] [place] [address] [place] Platelet mean volume (Bld) [Entitic vol] 9.8 fL Normal 9.0-12.7 [facility] Comment on above: Order Comment: Speci men Type: BLOOD SPECIMEN Ordering Facility: [facility] Address: [address] [place] [address] Performed By: #### 2 4321-2, 81752-0, #### [facility] CLIA [id number] [address] [place] [address] [place] Platelets (Bld) [#/Vol] 274 10*3/uL Normal 150-400 [facility] Comment on above: Order Comment: Speci men Type: BLOOD SPECIMEN Ordering Facility: [facility] Address: [address] [place] [address] Performed By: #### 2 4320-2, 96196-2, #### [facility] CLIA [id number] [address] [place] RBC (Bld) [#/Vol] 4.13 10*6/uL Normal 3.90-5.20 [facility] Comment on above: Order Comment: Speci men Type: BLOOD SPECIMEN Ordering Facility: [facility] Address: [address] [place] [address] Performed By: #### 2 1-2, 95737-5, #### [facility] CLIA [id number] [address] [place] [address] [place] WBC (Bld) [#/Vol] 6.06 10*3/uL Normal 3.70-11.00 [facility] Comment on above: Order Comment: Speci men Type: BLOOD SPECIMEN Ordering Facility: [facility] Address: [address] [place] [address] Performed By: #### 2 4321-2, 09941-4, #### [facility] CLIA [id number] [address] CBC panel Auto (Bld)on 06-15 Erythrocyte distribution width (RBC) [Ratio] 15.4 % High 11.5-15.0 [facility] Comment on above: Order Comment: Speci men Type: BLOOD SPECIMEN Ordering Facility: [facility] Address: [address] [place] [address] Performed By: #### 2 4321-2, 65768-3, #### [facility] CLIA [id number] [address] Hematocrit (Bld) [Volume fraction] 33.9 % Low 36.0-46.0 [facility] Comment on above: Order Comment: Speci men Type: BLOOD SPECIMEN Ordering Facility: [facility] Address: [address] [place] [address] Performed By: #### 2 4321-2, 92611-0, #### [facility] CLIA [id number] [address] Hemoglobin (Bld) [Mass/Vol] 10.6 g/dL Low 11.5-15.5 [facility] Comment on above: Order Comment: Speci men Type: BLOOD SPECIMEN Ordering Facility: [facility] Address: [address] [place] [address] Performed By: #### 2 4321-2, 18009-3, #### [facility] CLIA [id number] [address] [place] MCH (RBC) [Entitic mass] 26.2 pg Normal 26.0-34.0 [facility] Comment on above: Order Comment: Speci men Type: BLOOD SPECIMEN Ordering Facility: [facility] Address: [address] [place] [address] Performed By: #### 2 4321-2, 97528-2, #### [facility] CLIA [id number] [address] MCHC (RBC) [Mass/Vol] 31.3 g/dL Normal 30.5-36.0 [facility] Comment on above: Order Comment: Speci men Type: BLOOD SPECIMEN Ordering Facility: [facility] Address: [address] [place] [address] Performed By: #### 2 4321-2, 41590-3, #### [facility] CLIA [id number] [address] MCV (RBC) [Entitic vol] 83.9 fL Normal 80.0-100.0 [facility] Comment on above: Order Comment: Speci men Type: BLOOD SPECIMEN Ordering Facility: [facility] Address: [address] [place] [address] Performed By: #### 2 1-2, 82888-6, #### [facility] CLIA [id number] [address] STATES OF [facility] Nucleated RBC (Bld) [#/Vol] 10*3/uL Normal <0.01 [facility] Comment on above: Order Comment: Speci men Type: BLOOD SPECIMEN Ordering Facility: [facility] Address: [address] [place] [address] Performed By: #### 2 1-2, 16533-3, #### [facility] CLIA [id number] [address] [place] Platelet mean volume (Bld) [Entitic vol] 9.9 fL Normal 9.0-12.7 [facility] Comment on above: Order Comment: Speci men Type: BLOOD SPECIMEN Ordering Facility: [facility] Address: [address] [place] [address] Performed By: #### 2 1-2, 12741-9, #### [facility] CLIA [id number] [address] [place] Platelets (Bld) [#/Vol] 280 10*3/uL Normal 150-400 [facility] Comment on above: Order Comment: Speci men Type: BLOOD SPECIMEN Ordering Facility: [facility] Address: [address] [place], [place] [address] Performed By: #### 2 4321-2, 79558-0, #### [facility] CLIA [id number] [address] [place] RBC (Bld) [#/Vol] 4.04 10*6/uL Normal 3.90-5.20 [facility] Comment on above: Order Comment: Speci men Type: BLOOD SPECIMEN Ordering Facility: [facility] Address: [address] [place], [place] [address] Performed By: #### 2 4321-2, 04241-5, #### [facility] CLIA [id number] [address] [place] WBC (Bld) [#/Vol] 5.80 10*3/uL Normal 3.70-11.00 [facility] Comment on above: Order Comment: Speci men Type: BLOOD SPECIMEN Ordering Facility: [facility] Address: [address] [place], [place] [address] Performed By: #### 2 4321-2, 33518-4, #### [facility] CLIA [id number] [address] OF [facility] THERAPY NTon 06-15-2024 THERAPY NT HNO ID: [id number] Author: MEHREEN MANCERA, PT Service: Physical Therapy Author Type: Physical Therapist Type: Therapy (PT/OT/Speech/Resp) Filed: 06/15/2024 16:13 Note Text: Physical Therapy Treatment Summary SERVICE DATE: 06/15/2024 SERVICE TIME: 1518 to 1547 ROOM: [place] [address] PT 6 Clicks Score: 13 DISCHARGE RECOMMENDATIONS [...] Lack of coordination-other TREATMENT INTERVENTIONS Therapeutic Activity (66150), Neuromuscular Reeducation (39520) Timed Code Treatment (minutes): 29 Skilled Treatment Time (minutes): 29 Therapeutic Activity (18833) Treatment Minutes: 10 $ Therapeutic Activity (27017) Billed Units: 1 unit Neuromuscular Reeducation (67422) Treatment Minutes: 19 $ Neuromuscular Reeducation (03831) Billed Units: 1 unit Sitting balance and [...] (more content not included)... Normal [facility] CBC panel Auto (Bld)on 06-14 Erythrocyte distribution width (RBC) [Ratio] 15.5 % High 11.5-15.0 [facility] Comment on above: Order Comment: Speci men Type: BLOOD SPECIMENOrdering Facility: [facility] Address: [address] [place] [address] Performed By: #### 5 8410-2 ####[facility]ORYCLIA [id number] [place] [address] [place] Hematocrit (Bld) [Volume fraction] 34.8 % Low 36.0-46.0 [facility] Comment on above: Order Comment: Speci men Type: BLOOD SPECIMENOrdering Facility: [facility] Address: [address] [place] [address] Performed By: #### 5 8410-2 ####[facility]ORYCLIA [id number] [address] Hemoglobin (Bld) [Mass/Vol] 11.0 g/dL Low 11.5-15.5 [facility] Comment on above: Order Comment: Speci men Type: BLOOD SPECIMENOrdering Facility: [facility] Address: [address] [place] [address] Performed By: #### 5 8410-2 ####[facility]ORYCLIA [id number] [address] MCH (RBC) [Entitic mass] 26.6 pg Normal 26.0-34.0 [facility] Comment on above: Order Comment: Speci men Type: BLOOD SPECIMENOrdering Facility: [facility] Address: [address] [place] [address] Performed By: #### 5 8410-2 ####[facility]ORYCLIA [id number] [address] MCHC (RBC) [Mass/Vol] 31.6 g/dL Normal 30.5-36.0 [facility] Comment on above: Order Comment: Speci men Type: BLOOD SPECIMENOrdering Facility: [facility] Address: [address] [place] [address] Performed By: #### 5 8410-2 ####[facility]ATORYCLIA [id number] [address] STATES [facility] MCV (RBC) [Entitic vol] 84.3 fL Normal 80.0-100.0 [facility] Comment on above: Order Comment: Speci men Type: BLOOD SPECIMENOrdering Facility: [facility] Address: [address] [place] [address] Performed By: #### 5 8410-2 ####[facility]ORATORYCLIA [id number] [place] [address] [place] Nucleated RBC (Bld) [#/Vol] 10*3/uL Normal <0.01 [facility] Comment on above: Order Comment: Speci men Type: BLOOD SPECIMENOrdering Facility: [facility] Address: [address] [place] [address] Performed By: #### 5 8410-2 ####[facility] LABORATORYCLIA [id number] [place] [address] [place] Platelet mean volume (Bld) [Entitic vol] 9.7 fL Normal 9.0-12.7 [facility] Comment on above: Order Comment: Speci men Type: BLOOD SPECIMENOrdering Facility: [facility] Address: [address] [place] [address] Performed By: #### 5 8410-2 ####[facility]ATORYCLIA [id number] [address] [place] Platelets (Bld) [#/Vol] 278 10*3/uL Normal 150-400 [facility] Comment on above: Order Comment: Speci men Type: BLOOD SPECIMENOrdering Facility: [facility] Address: [address] [place] [address] Performed By: #### 5 8410-2 ####[facility]ATORYCLIA [id number] [place] [address] [place] RBC (Bld) [#/Vol] 4.13 10*6/uL Normal 3.90-5.20 [facility] Comment on above: Order Comment: Speci men Type: BLOOD SPECIMENOrdering Facility: [facility] Address: [address] [place] [address] Performed By: #### 5 8410-2 ####[facility]ATORYCLIA [id number] [address] [place] WBC (Bld) [#/Vol] 4.70 10*3/uL Normal 3.70-11.00 [facility] Comment on above: Order Comment: Speci men Type: BLOOD SPECIMENOrdering Facility: [facility] Address: [address] [place] [address] Performed By: #### 5 8410-2 ####[facility] LABORATORYCLIA [id number] [place] [address] [facility] NURSING PROGon 06-14-2024 NURSING PROG HNO ID: [id number] Author: JOSE JERNIGAN, RN Service: Nursing Author [...] XR and lidocaine patch Normal [facility] XR SHLDR >/=3V AP/JASON AP/OTH R [...] portions of the right lung are clear. Podiatric Assistant: PSCB Transcribe Date/Time: Jun 14 2024 1:33P Dictated by : DEV WELCH MD This examination was interpreted and the report reviewed and electronically signed by: DEV WELCH MD on Jun 14 2024 1:35PM EST [id number] [facility] ALLIED HEALTHon 06-13-2024 ALLIED HEALTH HNO ID: [id number] Author: ALFRED DALEY Chaplain Service: ? Author Type: Clerical Production Worker Type: Allied Health Filed: 06/13/2024 14:38 Note Text: SPIRITUAL CARE ASSESSMENT SERVICE DATE: 06/13/2024 SERVICE TIME: 11:53 Visit with: Patient Length of visit (minutes): 5 Denominational / Spirituality: Pt did not Disc. Reason: [...] TIME: 2:31 PM PAGER/CONTACT #: [phone] Normal [facility] Basic metabolic 2000 panelon 06-13-2024 Anion gap [Moles/Vol] 11 mmol/L Normal 8-15 [facility] Comment on above: Order Comment: Speci men Type: BLOOD SPECIMEN Ordering Facility: [facility] Address: [address] [place] [address] Performed By: #### 2 4321-2, 60328-9, #### [facility] CLIA [id number] [address] [place] [address] [place] Calcium [Mass/Vol] 8.9 mg/dL Normal 8.5-10.2 [facility] Comment on above: Order Comment: Speci men Type: BLOOD SPECIMEN Ordering Facility: [facility] Address: [address] [place] [address] Performed By: #### 2 4321-2, 85056-6, #### [facility] CLIA [id number] [address] [place] [address] [place] Chloride [Moles/Vol] 101 mmol/L Normal 98-107 [facility] Comment on above: Order Comment: Speci men Type: BLOOD SPECIMEN Ordering Facility: [facility] Address: [address] [place] [address] Performed By: #### 2 4321-2, 32747-2, #### [facility] CLIA [id number] [address] [place] [address] [place] CO2 [Moles/Vol] 24 mmol/L Normal 22-30 [facility] Comment on above: Order Comment: Speci men Type: BLOOD SPECIMEN Ordering Facility: [facility] Address: [address] [place] [address] Performed By: #### 2 4321-2, 01371-5, #### [facility] CLIA [id number] [address] STATES OF [facility] Creatinine [Mass/Vol] 1.04 mg/dL High 0.58-0.96 [facility] Comment on above: Order Comment: Speci men Type: BLOOD SPECIMEN Ordering Facility: [facility] Address: [address] [place] [address] Performed By: #### 2 4321-2, 43539-4, #### [facility] CLIA [id number] [address] Creatinine and Glomerular filtration rate.predicted panel (S/P/Bld) 53 mL/min/1.73m??? Low >=60 [facility] Comment on above: Order Comment: Speci men Type: BLOOD SPECIMEN Ordering Facility: [facility] Address: [address] [place] [address] Result Comment: Isa mated Glomerular Filtration Rate [...] actual GFR. Performed By: #### 2 4321-2, 42461-1, #### [facility] CLIA [id number] [address] STATES OF [facility] Glucose [Mass/Vol] 95 mg/dL Normal 74-99 [facility] Comment on above: Order Comment: Speci men Type: BLOOD SPECIMEN Ordering Facility: [facility] Address: [address] [place] [address] Result Comment: The [place] Diabetes Association (ADA) provides guidance for cutoff [...] Standards of Medical Care in Diabetes 2016, [place] [employer]. Diabetes Care. 2016.39(Suppl 1). Performed By: #### 2 4321-2, 60026-4, #### [facility] CLIA [id number] [address] [place] [address] [place] Potassium [Moles/Vol] 3.8 mmol/L Normal 3.7-5.1 [facility] Comment on above: Order Comment: Rhina mason Type: BLOOD SPECIMEN Ordering Facility: [facility] Address: [address] [place] [address] Performed By: #### 2 4321-2, 81691-3, #### [facility] CLIA [id number] [address] [place] [address] [place] Sodium [Moles/Vol] 136 mmol/L Normal 136-144 [facility] Comment on above: Order Comment: Rhina mason Type: BLOOD SPECIMEN Ordering Facility: [facility] Address: [address] [place] [address] Performed By: #### 2 4321-2, 06119-0, #### [facility] CLIA [id number] [address] [place] [address] [place] Urea nitrogen [Mass/Vol] 16 mg/dL Normal 7-21 [facility] Comment on above: Order Comment: Rhina mason Type: BLOOD SPECIMEN Ordering Facility: [facility] Address: [address] [place] [address] Performed By: #### 2 4321-2, 51215-3, #### [facility] CLIA [id number] [address] STATES OF [facility] CBC panel Auto (Bld)on 06-13 Erythrocyte distribution width (RBC) [Ratio] 15.5 % High 11.5-15.0 [facility] Comment on above: Order Comment: Speci men Type: BLOOD SPECIMENOrdering Facility: [facility] Address: [address] [place] [address] Performed By: #### 5 8410-2 ####[facility]ATORYCLIA [id number] [address] OF [facility] Hematocrit (Bld) [Volume fraction] 33.1 % Low 36.0-46.0 [facility] Comment on above: Order Comment: Speci men Type: BLOOD SPECIMENOrdering Facility: [facility] Address: [address] [place] [address] Performed By: #### 5 8410-2 ####[facility]ORYCLIA [id number] [address] Hemoglobin (Bld) [Mass/Vol] 10.2 g/dL Low 11.5-15.5 [facility] Comment on above: Order Comment: Speci men Type: BLOOD SPECIMENOrdering Facility: [facility] Address: [address] [place] [address] Performed By: #### 5 8410-2 ####[facility]ORYCLIA [id number] [address] STATES [facility] MCH (RBC) [Entitic mass] 26.5 pg Normal 26.0-34.0 [facility] Comment on above: Order Comment: Speci men Type: BLOOD SPECIMENOrdering Facility: [facility] Address: [address] [place] [address] Performed By: #### 5 8410-2 ####[facility]ORYCLIA [id number] [address] [place] MCHC (RBC) [Mass/Vol] 30.8 g/dL Normal 30.5-36.0 [facility] Comment on above: Order Comment: Speci men Type: BLOOD SPECIMENOrdering Facility: [facility] Address: [address] [place] [address] Performed By: #### 5 8410-2 ####[facility]ORYCLIA [id number] [address] STATES [facility] MCV (RBC) [Entitic vol] 86.0 fL Normal 80.0-100.0 [facility] Comment on above: Order Comment: Speci men Type: BLOOD SPECIMENOrdering Facility: [facility] Address: [address] [place] [address] Performed By: #### 5 8410-2 ####[facility]ORYCLIA [id number] [address] OF [facility] Nucleated RBC (Bld) [#/Vol] 10*3/uL Normal <0.01 [facility] Comment on above: Order Comment: Speci men Type: BLOOD SPECIMENOrdering Facility: [facility] Address: [address] [place] [address] Performed By: #### 5 8410-2 ####[facility]ATORYCLIA [id number] [address] Platelet mean volume (Bld) [Entitic vol] 9.6 fL Normal 9.0-12.7 [facility] Comment on above: Order Comment: Speci men Type: BLOOD SPECIMENOrdering Facility: [facility] Address: [address] [place] [address] Performed By: #### 5 8410-2 ####[facility]ATORYCLIA [id number] [address] [place] Platelets (Bld) [#/Vol] 287 10*3/uL Normal 150-400 [facility] Comment on above: Order Comment: Speci men Type: BLOOD SPECIMENOrdering Facility: [facility] Address: [address] [place] [address] Performed By: #### 5 8410-2 ####[facility]ATORYCLIA [id number] [address] OF [facility] RBC (Bld) [#/Vol] 3.85 10*6/uL Low 3.90-5.20 [facility] Comment on above: Order Comment: Speci men Type: BLOOD SPECIMENOrdering Facility: [facility] Address: [address] [place] [address] Performed By: #### 5 8410-2 ####[facility]ATORYCLIA [id number] [address] STATES OF [facility] WBC (Bld) [#/Vol] 4.79 10*3/uL Normal 3.70-11.00 [facility] Comment on above: Order Comment: Speci men Type: BLOOD SPECIMENOrdering Facility: [facility] Address: [address] [place] [address] Performed By: #### 5 8410-2 ####[facility]ATORYCLIA [id number] [address] aPTT PPPon 06-13-2024 aPTT Coag (PPP) [Time] 51.3 s High 23.0-32.4 [facility] Comment on above: Order Comment: Speci men Type: BLOOD SPECIMEN Ordering Facility: [facility] Address: [address] [place] [address] Performed By: #### 2 4321-2, 73734-7, #### [facility] CLIA [id number] [address] OF [facility] aPTT Coag (PPP) [Time] 89.0 s High 23.0-32.4 [facility] Comment on above: Order Comment: Speci men Type: BLOOD SPECIMEN Ordering Facility: [facility] Address: [address] [place] [address] Performed By: #### 2 4321-2, 61408-2, 05028-9 #### [facility] CLIA [id number] [address] [place] ALLIED HEALTHon 06-12-2024 ALLIED HEALTH HNO ID: [id number] Author: MONA SEVILLA RT(R) Service: Radiology Author [...] PATIENT PRESENTS WITH AN IMPLANTABLE OR ATTACHED BUTTER FAT TESTER: No RADIOLOGY DEPARTMENT: CT; Exam(s) Completed: Brain PERIPHERAL IV DATA: Not applicable SIGNED BY: Mona Sevilla RT(R) June 12, 2024 9:13 AM Normal [facility] CBC W Auto Differential pane l (Bld)on 06-12-2024 Basophils (Bld) [#/Vol] 0.03 10*3/uL Normal <0.11 [facility] Comment on above: Order Comment: Speci men Type: BLOOD SPECIMEN Ordering Facility: [facility] Address: [address] [place] [address] Performed By: #### 2 4321-2, 83406-1, #### [facility] CLIA [id number] [address] [place] [address] [place] Basophils/100 WBC (Bld) 0.6 % Normal [facility] Comment on above: Order Comment: Speci men Type: BLOOD SPECIMEN Ordering Facility: [facility] Address: [address] [place] [address] Performed By: #### 2 4321-2, 35812-8, #### [facility] CLIA [id number] [address] [place] Differential cell count method Nom (Bld) Auto Normal [facility] Comment on above: Order Comment: Speci men Type: BLOOD SPECIMEN Ordering Facility: [facility] Address: [address] [place] [address] Performed By: #### 2 4321-2, 39972-0, #### [facility] CLIA [id number] [address] [place] Eosinophils (Bld) [#/Vol] 0.05 10*3/uL Normal <0.46 [facility] Comment on above: Order Comment: Speci men Type: BLOOD SPECIMEN Ordering Facility: [facility] Address: [address] [place] [address] Performed By: #### 2 4321-2, 27734-9, #### [facility] CLIA [id number] [address] [place] Eosinophils/100 WBC (Bld) 1.0 % Normal [facility] Comment on above: Order Comment: Speci men Type: BLOOD SPECIMEN Ordering Facility: [facility] Address: [address] [place] [address] Performed By: #### 2 1-2, 87157-1, #### [facility] CLIA [id number] [address] [place] Erythrocyte distribution width (RBC) [Ratio] 15.6 % High 11.5-15.0 [facility] Comment on above: Order Comment: Speci men Type: BLOOD SPECIMEN Ordering Facility: [facility] Address: [address] [place] [address] Performed By: #### 2 4321-2, 94092-9, #### [facility] CLIA [id number] [address] [place] Hematocrit (Bld) [Volume fraction] 34.6 % Low 36.0-46.0 [facility] Comment on above: Order Comment: Speci men Type: BLOOD SPECIMEN Ordering Facility: [facility] Address: [address] [place] [address] Performed By: #### 2 4321-2, 38675-9, #### [facility] CLIA [id number] [address] [place] [address] [place] Hemoglobin (Bld) [Mass/Vol] 10.6 g/dL Low 11.5-15.5 [facility] Comment on above: Order Comment: Speci men Type: BLOOD SPECIMEN Ordering Facility: [facility] Address: [address] [place] [address] Performed By: #### 2 1-2, 41114-1, #### [facility] CLIA [id number] [address] [place] Immature granulocytes (Bld) [#/Vol] 10*3/uL Normal <0.10 [facility] Comment on above: Order Comment: Speci men Type: BLOOD SPECIMEN Ordering Facility: [facility] Address: [address] [place] [address] Performed By: #### 2 4320-2, 40659-9, #### [facility] CLIA [id number] [address] [place] Immature granulocytes/100 WBC (Bld) 0.2 % Normal [facility] Comment on above: Order Comment: Speci men Type: BLOOD SPECIMEN Ordering Facility: [facility] Address: [address] [place] [address] Performed By: #### 2 1-2, 53260-7, #### [facility] CLIA [id number] [address] [place] [address] [place] Lymphocytes (Bld) [#/Vol] 1.65 10*3/uL Normal 1.00-4.00 [facility] Comment on above: Order Comment: Speci men Type: BLOOD SPECIMEN Ordering Facility: [facility] Address: [address] [place] [address] Performed By: #### 2 4321-2, 87093-9, #### [facility] CLIA [id number] [address] [place] Lymphocytes/100 WBC (Bld) 31.9 % Normal [facility] Comment on above: Order Comment: Speci men Type: BLOOD SPECIMEN Ordering Facility: [facility] Address: [address] [place] [address] Performed By: #### 2 4321-2, 21074-5, #### [facility] CLIA [id number] [address] MCH (RBC) [Entitic mass] 26.2 pg Normal 26.0-34.0 [facility] Comment on above: Order Comment: Speci men Type: BLOOD SPECIMEN Ordering Facility: [facility] Address: [address] [place] [address] Performed By: #### 2 4321-2, 41610-2, #### [facility] CLIA [id number] [address] MCHC (RBC) [Mass/Vol] 30.6 g/dL Normal 30.5-36.0 [facility] Comment on above: Order Comment: Speci men Type: BLOOD SPECIMEN Ordering Facility: [facility] Address: [address] [place] [address] Performed By: #### 2 4321-2, 32848-4, #### [facility] CLIA [id number] [address] MCV (RBC) [Entitic vol] 85.6 fL Normal 80.0-100.0 [facility] Comment on above: Order Comment: Speci men Type: BLOOD SPECIMEN Ordering Facility: [facility] Address: [address] [place] [address] Performed By: #### 2 4321-2, 46743-0, #### [facility] CLIA [id number] [address] Monocytes (Bld) [#/Vol] 0.46 10*3/uL Normal <0.87 [facility] Comment on above: Order Comment: Speci men Type: BLOOD SPECIMEN Ordering Facility: [facility] Address: [address] [place] [address] Performed By: #### 2 4321-2, 79670-9, #### [facility] CLIA [id number] [address] [place] Monocytes/100 WBC (Bld) 8.9 % Normal [facility] Comment on above: Order Comment: Speci men Type: BLOOD SPECIMEN Ordering Facility: [facility] Address: [address] [place] [address] Performed By: #### 2 4321-2, 41805-6, #### [facility] CLIA [id number] [address] [place] Neutrophils (Bld) [#/Vol] 2.97 10*3/uL Normal 1.45-7.50 [facility] Comment on above: Order Comment: Speci men Type: BLOOD SPECIMEN Ordering Facility: [facility] Address: [address] [place] [address] Performed By: #### 2 4321-2, 86142-8, #### [facility] CLIA [id number] [address] OF [facility] Neutrophils/100 WBC (Bld) 57.4 % Normal [facility] Comment on above: Order Comment: Speci men Type: BLOOD SPECIMEN Ordering Facility: [facility] Address: [address] [place] [address] Performed By: #### 2 4321-2, 73508-2, #### [facility] CLIA [id number] [address] [place] Nucleated RBC (Bld) [#/Vol] 10*3/uL Normal <0.01 [facility] Comment on above: Order Comment: Speci men Type: BLOOD SPECIMEN Ordering Facility: [facility] Address: [address] [place] [address] Performed By: #### 2 4321-2, 69865-3, #### [facility] CLIA [id number] [address] [place] Nucleated RBC/100 WBC (Bld) [Ratio] 0.0 /100 WBC Normal [facility] Comment on above: Order Comment: Speci men Type: BLOOD SPECIMEN Ordering Facility: [facility] Address: [address] [place] [address] Performed By: #### 2 4321-2, 35104-2, #### [facility] CLIA [id number] [address] [place] Platelet mean volume (Bld) [Entitic vol] 9.6 fL Normal 9.0-12.7 [facility] Comment on above: Order Comment: Speci men Type: BLOOD SPECIMEN Ordering Facility: [facility] Address: [address] [place] [address] Performed By: #### 2 4321-2, 46432-2, #### [facility] CLIA [id number] [address] Platelets (Bld) [#/Vol] 314 10*3/uL Normal 150-400 [facility] Comment on above: Order Comment: Speci men Type: BLOOD SPECIMEN Ordering Facility: [facility] Address: [address] [place] [address] Performed By: #### 2 4321-2, 40797-8, #### [facility] CLIA [id number] [address] [place] RBC (Bld) [#/Vol] 4.04 10*6/uL Normal 3.90-5.20 [facility] Comment on above: Order Comment: Speci men Type: BLOOD SPECIMEN Ordering Facility: [facility] Address: [address] [place] [address] Performed By: #### 2 4321-2, 20797-1, #### [facility] CLIA [id number] [address] [place] WBC (Bld) [#/Vol] 5.17 10*3/uL Normal 3.70-11.00 [facility] Comment on above: Order Comment: Speci men Type: BLOOD SPECIMEN Ordering Facility: [facility] Address: [address] [place] [address] Performed By: #### 2 4321-2, 23400-8, 45914-4 #### [facility] CLIA [id number] [address] [place] CONSULTon 06-12-2024 CONSULT HNO ID: [id number] Author: MINA TALBERT MD Service: Cardiovascular Disease Author Type: Physician Type: Consults Filed: 06/12/2024 10:40 Note Text: CARDIOLOGY CONSULTATION- [facility] Patient Name: Mel Castillo : 1940 PRIMARY CARE PHYSICIAN: Jared Evans MD [address] [place] [address] REFERRING PHYSICIAN No referring provider defined for [...] presumptive 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[facility] with history of prior stroke PAD COPD [...] the hospital a few months ago at [facility] she was taking her Eliquis and was [...] H Don Edwards DO 25 mg at 06/11/[address] 40 mg tab(s) (PROTONIX) 40 mg ORAL DAILY (6 AM) Don Edwards DO 40 mg at 06/11/24 0920 NaCl 0.9% iv flush bag 20 mL INTRAVENOUS PRN Don Edwards DO atorvastatin 80 mg tab(s) (LIPITOR) 80 mg ORAL/FEEDING TUBE AT BEDTIME Don Edwards DO 80 mg at 06/11/24 2134 acetaminophen 650 mg tab(s) (TYLENOL) 650 mg [...] (more content not included)... Normal [facility] CONSULT PROGon 06-12-2024 CONSULT PROG HNO ID: [id number] Author: NICOLAS TESFAYE APRN.CNP Service: Neurology General Author Type: Nurse Practitioner [...] Score: 1 (06/12/24 0945 : Nicolas Tesfaye APRN.CNP) 1 MENTAL STATUS: Alert, oriented to person, [...] and Prevention (personally reviewed by Nicolas Tesfaye APRN.CNP): Daily Rounding Date: 06/12/24 Daily Rounding Time: [...] problems. * Impression/Recommendati ons IMPRESSION Mel Serna David (more content not included)... Normal [facility] CT BRAIN WO IVCONon 06-12-20 CT BRAIN WO IVCON * * *Final Report* * * DATE OF EXAM: Jun 12 2024 9:25AM [facility] 0504 - CT BRAIN WO IVCON [...] intracranial hemorrhage. Chronic changes, as detailed above. Podiatric Assistant: DEVEN Transcribe Date/Time: Jun 12 2024 9:42A Dictated by : LYDIA EVANS MD This examination was interpreted and the report reviewed and electronically signed by: LYDIA EVANS MD on Jun 12 2024 9:47AM EST [id number] Normal [facility] Comprehensive metabolic 2000 panelon 06-12-2024 Albumin [Mass/Vol] 3.6 g/dL Low 3.9-4.9 [facility] Comment on above: Order Comment: Speci men Type: BLOOD SPECIMEN Ordering Facility: [facility] Address: [address] [place] [address] Performed By: #### 2 4321-2, 58425-7, #### [facility] CLIA [id number] [address] ALP [Catalytic activity/Vol] 88 U/L Normal 34-123 [facility] Comment on above: Order Comment: Speci men Type: BLOOD SPECIMEN Ordering Facility: [facility] Address: [address] [place] [address] Performed By: #### 2 4321-2, 99589-1, #### [facility] CLIA [id number] [address] STATES [facility] ALT With P-5'-P [Catalytic activity/Vol] 6 U/L Low 7-38 [facility] Comment on above: Order Comment: Speci men Type: BLOOD SPECIMEN Ordering Facility: [facility] Address: [address] [place] [address] Performed By: #### 2 4321-2, 02216-7, #### [facility] CLIA [id number] [address] Anion gap [Moles/Vol] 13 mmol/L Normal 8-15 [facility] Comment on above: Order Comment: Speci men Type: BLOOD SPECIMEN Ordering Facility: [facility] Address: [address] [place] [address] Performed By: #### 2 4321-2, 49080-7, #### [facility] CLIA [id number] [address] [place] AST With P-5'-P [Catalytic activity/Vol] 9 U/L Low 13-35 [facility] Comment on above: Order Comment: Speci men Type: BLOOD SPECIMEN Ordering Facility: [facility] Address: [address] [place] [address] Performed By: #### 2 4321-2, 06750-2, #### [facility] CLIA [id number] [address] [place] [address] [place] Bilirubin [Mass/Vol] 0.6 mg/dL Normal 0.2-1.3 [facility] Comment on above: Order Comment: Speci men Type: BLOOD SPECIMEN Ordering Facility: [facility] Address: [address] [place] [address] Performed By: #### 2 1-2, 07963-7, #### [facility] CLIA [id number] [address] [place] [address] [place] Calcium [Mass/Vol] 9.2 mg/dL Normal 8.5-10.2 [facility] Comment on above: Order Comment: Speci men Type: BLOOD SPECIMEN Ordering Facility: [facility] Address: [address] [place] [address] Performed By: #### 2 1-2, 28709-6, #### [facility] CLIA [id number] [address] [place] [address] [place] Chloride [Moles/Vol] 101 mmol/L Normal 98-107 [facility] Comment on above: Order Comment: Speci men Type: BLOOD SPECIMEN Ordering Facility: [facility] Address: [address] [place] [address] Performed By: #### 2 1-2, 75041-3, #### [facility] CLIA [id number] [address] [place] [address] [place] CO2 [Moles/Vol] 23 mmol/L Normal 22-30 [facility] Comment on above: Order Comment: Speci men Type: BLOOD SPECIMEN Ordering Facility: [facility] Address: [address] [place] [address] Performed By: #### 2 1-2, 39614-3, #### [facility] CLIA [id number] [address] [place] [address] [place] Creatinine [Mass/Vol] 1.02 mg/dL High 0.58-0.96 [facility] Comment on above: Order Comment: Rhina mason Type: BLOOD SPECIMEN Ordering Facility: [facility] Address: [address] [place] [address] Performed By: #### 2 4321-2, 47199-8, 07516-3 #### [facility] CLIA [id number] [address] [place] Creatinine and Glomerular filtration rate.predicted panel (S/P/Bld) 54 mL/min/1.73m??? Low >=60 [facility] Comment on above: Order Comment: Rhina mason Type: BLOOD SPECIMEN Ordering Facility: [facility] Address: [address] [place] [address] Result Comment: Isa mated Glomerular Filtration Rate [...] actual GFR. Performed By: #### 2 4321-2, 80545-8, 82632-1 #### [facility] CLIA [id number] [address] [place] [address] [place] Glucose [Mass/Vol] 109 mg/dL High 74-99 [facility] Comment on above: Order Comment: Rhina mason Type: BLOOD SPECIMEN Ordering Facility: [facility] Address: [address] [place] [address] Result Comment: The [place] Diabetes Association (ADA) provides guidance for cutoff [...] Standards of Medical Care in Diabetes 2016, [place] [employer]. Diabetes Care. 2016.39(Suppl 1). Performed By: #### 2 4321-2, 99531-0, #### [facility] CLIA [id number] [address] [place] [address] [place] Potassium [Moles/Vol] 4.0 mmol/L Normal 3.7-5.1 [facility] Comment on above: Order Comment: Speci men Type: BLOOD SPECIMEN Ordering Facility: [facility] Address: [address] [place] [address] Performed By: #### 2 4321-2, 92429-4, #### [facility] CLIA [id number] [address] [place] [address] [place] Protein [Mass/Vol] 6.4 g/dL Normal 6.3-8.0 [facility] Comment on above: Order Comment: Speci men Type: BLOOD SPECIMEN Ordering Facility: [facility] Address: [address] [place] [address] Performed By: #### 2 4321-2, 05283-3, #### [facility] CLIA [id number] [address] [place] [address] [place] Sodium [Moles/Vol] 137 mmol/L Normal 136-144 [facility] Comment on above: Order Comment: Speci men Type: BLOOD SPECIMEN Ordering Facility: [facility] Address: [address] [place] [address] Performed By: #### 2 4321-2, 44293-9, #### [facility] CLIA [id number] [address] [place] [address] [place] Urea nitrogen [Mass/Vol] 12 mg/dL Normal 7-21 [facility] Comment on above: Order Comment: Speci men Type: BLOOD SPECIMEN Ordering Facility: [facility] Address: [address] [place] [address] Performed By: #### 2 4321-2, 45304-4, #### [facility] CLIA [id number] [address] [place] Magnesium SerPl-mCncon 06-12 Magnesium [Mass/Vol] 2.3 mg/dL Normal 1.7-2.3 [facility] Comment on above: Order Comment: Rhina men Type: BLOOD SPECIMEN Ordering Facility: [facility] Address: [facility] [place] [address] Performed By: #### 2 4321-2, 22975-4, 18213-3 #### [facility] CLIA [id number] [address] [place] [address] [place] NURSING PROGon 06-12-2024 NURSING PROG HNO ID: [id number] Author: ROBINSON VELÁSQUEZ RN Service: ? Author [...] draw due at 1900 Normal [facility] PT EDon 06-12-2024 PT ED HNO ID: [id number] Author: DOT PETERSON RPh Service: Pharmacy Author [...] questions. Patient aware of copay. Nayana Rowan, Linux System Administrator [facility] THERAPY NTon 06-12-2024 THERAPY NT HNO ID: [id number] Author: LATOYA LONG PT Service: Physical Therapy Author Type: Physical Therapist Type: Therapy (PT/OT/Speech/Resp) Filed: 06/12/2024 15:33 Note Text: Physical Therapy Treatment Summary SERVICE DATE: 06/12/2024 SERVICE TIME: 1445 to 1509 ROOM: [place] [address] PT 6 Clicks Score: 13 DISCHARGE RECOMMENDATIONS [...] Lack of coordination-other TREATMENT INTERVENTIONS Therapeutic Activity (00876), Neuromuscular Reeducation (74565) Timed Code Treatment (minutes): 23 Skilled Treatment Time (minutes): 23 Therapeutic Activity (02768) Treatment Minutes: 10 $ Therapeutic Activity (49620) Billed Units: 1 unit Training and assist with bed mobility, transfers and taking steps in place and side steps along the EOB with the walker. Neuromuscular Reeducation (08448) Treatment Minutes: 13 $ Neuromuscular Reeducation (60117) Billed Units: 1 unit Instructed pt in [...] (more content not included)... Normal [facility] THERAPY NT HNO ID: [id number] Author: SAMI WEINBERG OTR/L Service: Occupational Therapy Author Type: Occupational Therapist Type: Therapy (PT/OT/Speech/Resp) Filed: 06/12/2024 08:50 Note Text: Occupational Therapy Evaluation Summary SERVICE DATE: 06/12/2024 SERVICE TIME: 810 ROOM: [id number] OT 6 Clicks Score: 15 DISCHARGE RECOMMENDATIONS [...] and signs-other TREATMENT INTERVENTIONS Evaluation, Therapeutic Activity (38595) Timed Code Treatment (minutes): 8 Skilled Treatment Time (minutes): 23 $ Evaluation - Moderate (98466) Billed Units: 1 unit Therapeutic Activity (98233) Treatment Minutes: 8 $ Therapeutic Activity (55299) Billed Units: 1 unit TRAINING AND EDUCATION PROVIDED Assistive Device Use, Bed Mobility, Benefits of In-Hospital Mobility, Cognitive Stimulation Activities, Discharge Planning, Disease Specific Education, Role of Occupational Therapy, Safety/Judgment, Sitting Balance to Improve [place] with ADLs/Self-Care THERAPEUTIC SKILLS USED Activity Dosing, [...] (more content not included)... Normal [facility] aPTT PPPon 06-12-2024 aPTT Coag (PPP) [Time] 56.1 s High 23.0-32.4 [facility] Comment on above: Order Comment: Speci men Type: BLOOD SPECIMEN Ordering Facility: [facility] Address: [address] [place] [address] Performed By: #### 2 4321-2, 65763-0, 93949-8 #### [facility] CLIA [id number] 1 [place] [address] [facility] [place] aPTT Coag (PPP) [Time] 79.0 s High 23.0-32.4 [facility] Comment on above: Order Comment: Speci men Type: BLOOD SPECIMEN Ordering Facility: [facility] Address: [address] [place], [place] [address] Performed By: #### 1 4979-9 #### [facility] CLIA [id number] [address] aPTT Coag (PPP) [Time] 123.9 s High 23.0-32.4 [facility] Comment on above: Order Comment: Speci men Type: BLOOD SPECIMEN Ordering Facility: [facility] Address: [address] [place] [address] Performed By: #### 2 4321-2, 67949-8, 64097-1 #### [facility] CLIA [id number] [address] aPTT Coag (PPP) [Time] 117.3 s High 23.0-32.4 [facility] Comment on above: Order Comment: Speci men Type: BLOOD SPECIMEN Ordering Facility: [facility] Address: [address] [place] [address] Performed By: #### 2 4321-2, 24074-9, #### [facility] CLIA [id number] [address] 06-11-[address] [place] [address] 06-11-2024 [facility] HNO ID: [id number] Author: FABIO KERR Tech Service: ? Author Type: Instructional Design Technologist Type: Allied Health Filed: 06/11/2024 14:16 Note [...] PATIENT PRESENTS WITH AN IMPLANTABLE OR ATTACHED BUTTER FAT TESTER: No RADIOLOGY DEPARTMENT: MR; Exam(s) Completed: Head: Routine Brain [place] MRA MRA Carotid PERIPHERAL IV DATA: Not applicable SIGNED BY: Anne Marie Carrillo June 11, 2024 2:15 PM Normal [facility] CBC W Auto Differential pane l (Bld)on 06-11-2024 Basophils (Bld) [#/Vol] 0.03 10*3/uL Normal <0.11 [facility] Comment on above: Order Comment: Speci men Type: BLOOD SPECIMEN Ordering Facility: [facility] Address: [address] [place] [address] Performed By: #### 2 4321-2, 18191-5, #### [facility] CLIA [id number] [address] [place] Basophils/100 WBC (Bld) 0.4 % Normal [facility] Comment on above: Order Comment: Speci men Type: BLOOD SPECIMEN Ordering Facility: [facility] Address: [address] [place] [address] Performed By: #### 2 1-2, 09060-5, #### [facility] CLIA [id number] [address] [place] [address] [place] Differential cell count method Nom (Bld) Auto Normal [facility] Comment on above: Order Comment: Speci men Type: BLOOD SPECIMEN Ordering Facility: [facility] Address: [address] [place] [address] Performed By: #### 2 4321-2, 48558-3, #### [facility] CLIA [id number] [address] [place] [address] [place] Eosinophils (Bld) [#/Vol] 10*3/uL Normal <0.46 [facility] Comment on above: Order Comment: Speci men Type: BLOOD SPECIMEN Ordering Facility: [facility] Address: [address] [place] [address] Performed By: #### 2 4321-2, 67622-6, #### [facility] CLIA [id number] [address] [place] Eosinophils/100 WBC (Bld) 0.3 % Normal [facility] Comment on above: Order Comment: Speci men Type: BLOOD SPECIMEN Ordering Facility: [facility] Address: [address] [place] [address] Performed By: #### 2 4321-2, 62545-9, #### [facility] CLIA [id number] [address] [place] Erythrocyte distribution width (RBC) [Ratio] 15.6 % High 11.5-15.0 [facility] Comment on above: Order Comment: Speci men Type: BLOOD SPECIMEN Ordering Facility: [facility] Address: [address] [place] [address] Performed By: #### 2 4321-2, 53439-9, #### [facility] CLIA [id number] [address] OF [facility] Hematocrit (Bld) [Volume fraction] 37.6 % Normal 36.0-46.0 [facility] Comment on above: Order Comment: Speci men Type: BLOOD SPECIMEN Ordering Facility: [facility] Address: [address] [place] [address] Performed By: #### 2 4321-2, 82390-9, #### [facility] CLIA [id number] [address] [place] Hemoglobin (Bld) [Mass/Vol] 11.5 g/dL Normal 11.5-15.5 [facility] Comment on above: Order Comment: Speci men Type: BLOOD SPECIMEN Ordering Facility: [facility] Address: [address] [place] [address] Performed By: #### 2 4321-2, 54790-4, #### [facility] CLIA [id number] [address] [place] Immature granulocytes (Bld) [#/Vol] 0.03 10*3/uL Normal <0.10 [facility] Comment on above: Order Comment: Speci men Type: BLOOD SPECIMEN Ordering Facility: [facility] Address: [address] [place] [address] Performed By: #### 2 4321-2, 01241-8, #### [facility] CLIA [id number] [address] Immature granulocytes/100 WBC (Bld) 0.4 % Normal [facility] Comment on above: Order Comment: Speci men Type: BLOOD SPECIMEN Ordering Facility: [facility] Address: [address] [place] [address] Performed By: #### 2 1-2, 10576-7, #### [facility] CLIA [id number] [address] [place] Lymphocytes (Bld) [#/Vol] 1.26 10*3/uL Normal 1.00-4.00 [facility] Comment on above: Order Comment: Speci men Type: BLOOD SPECIMEN Ordering Facility: [facility] Address: [address] [place] [address] Performed By: #### 2 1-2, 79376-0, #### [facility] CLIA [id number] [address] Lymphocytes/100 WBC (Bld) 16.9 % Normal [facility] Comment on above: Order Comment: Speci men Type: BLOOD SPECIMEN Ordering Facility: [facility] Address: [address] [place] [address] Performed By: #### 2 4321-2, 91021-6, #### [facility] CLIA [id number] [address] [place] MCH (RBC) [Entitic mass] 26.6 pg Normal 26.0-34.0 [facility] Comment on above: Order Comment: Speci men Type: BLOOD SPECIMEN Ordering Facility: [facility] Address: [address] [place] [address] Performed By: #### 2 4321-2, 17356-6, #### [facility] CLIA [id number] [address] STATES [facility] MCHC (RBC) [Mass/Vol] 30.6 g/dL Normal 30.5-36.0 [facility] Comment on above: Order Comment: Speci men Type: BLOOD SPECIMEN Ordering Facility: [facility] Address: [address] [place] [address] Performed By: #### 2 1-2, 31726-8, #### [facility] CLIA [id number] [address] MCV (RBC) [Entitic vol] 87.0 fL Normal 80.0-100.0 [facility] Comment on above: Order Comment: Speci men Type: BLOOD SPECIMEN Ordering Facility: [facility] Address: [address] [place] [address] Performed By: #### 2 4320-2, 71556-4, #### [facility] CLIA [id number] [address] Monocytes (Bld) [#/Vol] 0.68 10*3/uL Normal <0.87 [facility] Comment on above: Order Comment: Speci men Type: BLOOD SPECIMEN Ordering Facility: [facility] Address: [address] [place] [address] Performed By: #### 2 4320-2, 20926-1, #### [facility] CLIA [id number] [address] Monocytes/100 WBC (Bld) 9.1 % Normal A [facility] Comment on above: Order Comment: Speci men Type: BLOOD SPECIMEN Ordering Facility: [facility] Address: [address] [place] [address] Performed By: #### 2 1-2, 32138-3, #### [facility] CLIA [id number] [address] [place] [address] [place] Neutrophils (Bld) [#/Vol] 5.43 10*3/uL Normal 1.45-7.50 [facility] Comment on above: Order Comment: Speci men Type: BLOOD SPECIMEN Ordering Facility: [facility] Address: [address] [place] [address] Performed By: #### 2 4321-2, 22495-9, #### [facility] CLIA [id number] [address] [place] Neutrophils/100 WBC (Bld) 72.9 % Normal [facility] Comment on above: Order Comment: Speci men Type: BLOOD SPECIMEN Ordering Facility: [facility] Address: [address] [place] [address] Performed By: #### 2 4321-2, 61134-2, #### [facility] CLIA [id number] [address] [place] Nucleated RBC (Bld) [#/Vol] 10*3/uL Normal <0.01 [facility] Comment on above: Order Comment: Speci men Type: BLOOD SPECIMEN Ordering Facility: [facility] Address: [address] [place] [address] Performed By: #### 2 4321-2, 69706-6, #### [facility] CLIA [id number] [address] [place] Nucleated RBC/100 WBC (Bld) [Ratio] 0.0 /100 WBC Normal [facility] Comment on above: Order Comment: Speci men Type: BLOOD SPECIMEN Ordering Facility: [facility] Address: [address] [place] [address] Performed By: #### 2 4321-2, 00167-8, #### [facility] CLIA [id number] [address] [place] Platelet mean volume (Bld) [Entitic vol] 9.5 fL Normal 9.0-12.7 [facility] Comment on above: Order Comment: Speci men Type: BLOOD SPECIMEN Ordering Facility: [facility] Address: [address] [place] [address] Performed By: #### 2 4321-2, 77860-6, 67172-5 #### [facility] CLIA [id number] [address] Platelets (Bld) [#/Vol] 329 10*3/uL Normal 150-400 [facility] Comment on above: Order Comment: Speci men Type: BLOOD SPECIMEN Ordering Facility: [facility] Address: [address] [place] [address] Performed By: #### 2 4321-2, 06258-5, #### [facility] CLIA [id number] [address] RBC (Bld) [#/Vol] 4.32 10*6/uL Normal 3.90-5.20 [facility] Comment on above: Order Comment: Speci men Type: BLOOD SPECIMEN Ordering Facility: [facility] Address: [address] [place] [address] Performed By: #### 2 4321-2, 74115-3, #### [facility] CLIA [id number] [address] WBC (Bld) [#/Vol] 7.45 10*3/uL Normal 3.70-11.00 [facility] Comment on above: Order Comment: Speci men Type: BLOOD SPECIMEN Ordering Facility: [facility] Address: [address] [place] [address] Performed By: #### 2 4321-2, 31672-3, 98598-6 #### [facility] CLIA [id number] [address] CONSULTon 06-11-2024 CONSULT HNO ID: [id number] Author: JENNY WALLACE MD Service: Neurology General [...] (more content not included)... Normal [facility] CONSULT HNO ID: [id number] Author: TOÑO MANZO MD Service: Urology Author [...] discussed with the Patient or Patient's Authorized Bottom Sprayer. As applicable, any other physician, advance practice provider, medical student, or other health professional student that will be observing or involved in the sensitive examination for educational or training purposes was discussed with the Patient or Authorized Bottom Sprayer. The Patient or Authorized Bottom Sprayer has agreed to proceed with the sensitive [...] lesion. Consider follow-up renal CT/MR for characterization. Podiatric Assistant: DEVEN Transcribe D (more content not included)... Normal [facility] CONSULT PROGon 06-11-2024 CONSULT PROG HNO ID: [id number] Author: CARL PERSAUD RPh Service: Pharmacy Author [...] care of this patient. Carl Persaud RPh [facility] CONSULT PROG HNO ID: [id number] Author: CARL PERSAUD RPh Service: Pharmacy Author [...] on 06/10/24. Patient was being managed by [facility] but was recently released due to insurance [...] Signature: Carl Persaud RPh Normal [facility] CT ABD/PEL W IVCONon 024 CT ABD/PEL W IVCON * * *Final Report* * * DATE OF EXAM: Jun 11 2024 3:07AM [facility] 0530 - CT ABD/PEL W IVCON [...] to bilateral greater trochanters, similar to prior. Ceramic Tiler (topogram) images: No additional findings. IMPRESSION: 1. Mild bilateral hydroureteronephrosis to the pelvic brim without evidence of ureterolithiasis. 2. Indeterminate left renal lesion. Consider follow-up renal CT/MR for characterization. Podiatric Assistant: DEVEN Transcribe Date/Time: Jun 11 2024 3:09A Dictated by : RAF AYALA MD This examination was interpreted and the report reviewed and electronically signed by: RAF AYALA MD on Jun 11 2024 3:40AM EST [id number] Normal [facility] CT BRAIN WO IVCONon 06-11-20 CT BRAIN WO IVCON * * *Final Report* * * DATE OF EXAM: Jun 11 2024 3:05AM [facility] 0504 - CT BRAIN WO IVCON [...] changes and small remote right occipital infarct. Podiatric Assistant: DEVEN Transcribe Date/Time: Jun 11 2024 3:05A Dictated by : RIN LANE MD This examination was interpreted and the report reviewed and electronically signed by: RIN LANE MD on Jun 11 2024 3:16AM EST [id number] Normal [facility] ECHO WITH AGITATED SALINE CO NTRASTon 06-11-2024 ECHO WITH AGITATED SALINE CONTRAST Echocardiography Report: Transthoracic Echo [facility] Date of service: 06/11/2024 11:20:46 [facility] Ordering physician: DON EDWARDS Indication: TIA Technologist: Dinora Fields [facility] Interpreting physician: Nando Costa MD PATIENT: [...] - Exam was compared with the prior echocardiographic exam performed on 06/17/2022. Mobile echodensity concerning for thrombus noted in the left atrium on current study. Nursing staff notified of above finding on 06/11/2024 at 12:10 pm. * * * Final * * * CC [email or web address] [facility] Image : [id number] Normal [facility] ED NOTEon 06-11-2024 ED NOTE HNO ID: [id number] Author: GISSELL CARRINGTON RN Service: Emergency Medicine Author Type: Registered Nurse Type: ED Notes Filed: 06/11/2024 05:58 Note Text: Gave report to assigned RN on 2100. Assigned RN is ready to receive patient at this time. Normal [facility] ED NOTE HNO ID: [id number] Author: GISSELL CARRINGTON RN Service: Emergency Medicine Author Type: Registered Nurse Type: ED Notes Filed: 06/11/2024 00:40 Note Text: Dr. Mendoza at bedside placing a US IV at this time. Normal [facility] HIGH SENSITIVITY TROPONIN T (SECOND)on 06-11-2024 Troponin T.cardiac High sensitivity method [Mass/Vol] 14 ng/L High <12 [facility] Comment on above: Order Comment: Speci men Type: BLOOD SPECIMEN Ordering Facility: [facility] Address: [address] [place] [address] Performed By: #### 2 4321-2, 41853-1, 16707-6 #### [facility] CLIA [id number] [address] [place] [address] [place] [facility] HIGH SENSITIVITY TROPONIN T (THIRD) 3 HRS AFTER INITIALon 06-11-2024 Troponin T.cardiac High sensitivity method [Mass/Vol] 14 ng/L High <12 [facility] Comment on above: Order Comment: Speci men Type: BLOOD SPECIMEN Ordering Facility: [facility] Address: [address], [place] [address] Performed By: #### 2 4321-2, 69574-5, 49336-7 #### [facility] CLIA [id number] [address] [place] [address] [place] HISTORY PHYSICALon HISTORY PHYSICAL HNO ID: [id number] Author: DON DEWARDS DO Service: Hospital Medicine Author Type: Physician Type: H&P Filed: 06/11/2024 14:14 Note Text: [facility]PARTMENT OF HOSPITAL MEDICINE HISTORY AND PHYSICAL EXAM SERVICE DATE: 06/11/2024 SERVICE TIME: 10:25 AM Primary Care Physician: Jared Evans MD, MD NIGHT AND WEEKEND COVERAGE: [place] COVERAGE: From 7am - 7pm, please call [phone] After 7pm, please call cross cover pager #[phone] Subjective CHIEF COMPLAINT: dizziness with vomiting, slurred [...] Drains, and Airways Line Duration Peripheral 06/11/24 [facility] Left Antecubital 20 Gauge <1 day Drain Duration External Collection Device 06/11/24 0250 [facility] <1 day Reviewed lines and needs to be continued: REASONS: Telemetry DATA: Diagnostic tests reviewed for today's visit: Most recent lab (more content not included)... Normal [facility] MRA BRAIN WO IVCONon 024 MRA BRAIN WO IVCON * * *Final Report* * * DATE OF EXAM: Jun 11 2024 3:52PM [facility] 0272 - MRA BRAIN WO IVCON / PROCEDURE REASON: Neuro deficit, acute, stroke suspected * * * * Physician Interpretation * * * * EXAMINATION: MRI BRAIN WO IVCON, MRA BRAIN WO IVCON, MRA CAROTID WO IVCON CLINICAL HISTORY: Neuro deficit, acute, stroke suspected TECHNIQUE: Routine noncontrast MRI brain protocol including diffusion images. Intracranial and carotid 3D sjst-dn-tovvua MRA. 3D maximum intensity projection images were [...] Patency: Bilateral Dominance: Left INTRACRANIAL MRA: [place] is patent without significant stenosis. 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 IMPRESSION: Motion degraded study. 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 No hemorrhagic transformation or significant mass effect. Unremarkable carotid MRA. 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 Podiatric [facility] Transcribe Date/Time: Jun 11 2024 3:54P Dictated by : ESTHER MCKEON MD This examination was interpreted and the report reviewed and electronically signed by: ESTHER MCKEON MD on Jun 11 2024 4:13PM EST [id number] Normal [facility] MRA CAROTID WO IVCONon 06-11 MRA CAROTID WO IVCON * * *Final Report* * * DATE OF EXAM: Jun 11 2024 3:52PM [facility] 0275 - MRA CAROTID WO IVCON / PROCEDURE REASON: Neuro deficit, acute, stroke suspected * * * * Physician Interpretation * * * * EXAMINATION: MRI BRAIN WO IVCON, MRA BRAIN WO IVCON, MRA CAROTID WO IVCON CLINICAL HISTORY: Neuro deficit, acute, stroke suspected TECHNIQUE: Routine noncontrast MRI brain protocol including diffusion images. Intracranial and carotid 3D sden-ue-hsctin MRA. 3D maximum intensity projection images were [...] Patency: Bilateral Dominance: Left INTRACRANIAL MRA: [place] is patent without significant stenosis. 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 IMPRESSION: Motion degraded study. 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 No hemorrhagic transformation or significant mass effect. Unremarkable carotid MRA. 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 Podiatric Assistant: DEVEN Transcribe Date/Time: Jun 11 2024 3:54P Dictated by : ESTHER MCKEON MD This examination was interpreted and the report reviewed and electronically signed by: ESTHER MCKEON MD on Jun 11 2024 4:13PM EST [id number] Normal [facility] MRI BRAIN WO IVCONon 024 MRI BRAIN WO IVCON * * *Final Report* * * DATE OF EXAM: Jun 11 2024 3:52PM [facility] 0294 - MRI BRAIN WO IVCON / PROCEDURE REASON: stroke * * * * Physician Interpretation * * * * EXAMINATION: MRI BRAIN WO IVCON, MRA BRAIN WO IVCON, MRA CAROTID WO IVCON CLINICAL HISTORY: Neuro deficit, acute, stroke suspected TECHNIQUE: Routine noncontrast MRI brain protocol including diffusion images. Intracranial and carotid 3D rnli-pi-oizmuz MRA. 3D maximum intensity projection images were [...] Patency: Bilateral Dominance: Left INTRACRANIAL MRA: [place] is patent without significant stenosis. 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 IMPRESSION: Motion degraded study. 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 No hemorrhagic transformation or significant mass effect. Unremarkable carotid MRA. 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 Podiatric Assistant: [facility] Transcribe Date/Time: Jun 11 2024 3:54P Dictated by : ESTHER MCKEON MD This examination was interpreted and the report reviewed and electronically signed by: ESTHER MCKEON MD on Jun 11 2024 4:13PM EST [id number] Normal [facility] PT panel Coag (PPP)on 2023 INR Coag (PPP) [Relative time] 1.2 {INR} Normal 0.9-1.3 [facility] Comment on above: Order Comment: Speci men Type: BLOOD SPECIMEN Ordering Facility: [facility] Address: [address] [place] [address] Result Comment: Mayra min K Antagonist (VKA) Therapeutic Range: INR 2 to 3 (Target INR of 2.5) Note: For patients treated with VKA drugs, such as warfarin, the [employer] [employer] 2012 Guideline recommends [...] Chest 2012, 141:7S-47S Daren HOYT et al. [facility] 2017, 70: 252-289 Performed By: #### 2 4321-2, 59777-8, 68485-8 #### [facility] CLIA [id number] [address] [place] PT Coag (PPP) [Time] 12.6 s Normal 9.7-13.0 [facility] Comment on above: Order Comment: Speci men Type: BLOOD SPECIMEN Ordering Facility: [facility] Address: [address] [place] [address] Performed By: #### 2 4321-2, 89644-2, 77155-9 #### [facility] CLIA [id number] [address] THERAPY NTon 06-11-2024 THERAPY NT HNO ID: [id number] Author: BASILIA MAGALLANES, RUTH-QUALITY REVIEW TRAINER Service: Speech/Swallow Author Type: Speech Language Pathologist Type: Therapy (PT/OT/Speech/Resp) Filed: 06/11/2024 09:44 Note Text: Speech Therapy Clinical Swallow Evaluation SERVICE DATE: 06/11/2024 SERVICE TIME: 915 to 930 ROOM: [place] [address] IMPRESSION: Functional oropharyngeal phases of swallowing: without [...] Skilled Need Interventions Provided: Clinical Swallow Evaluation (35667) $ Clinical Swallow Evaluation (90789) Billed Units: 1 unit Training and Education [...] for this therapy evaluation/treatment. SIGNATURE: Basilia Magallanes CCC-QUALITY REVIEW TRAINER PATIENT NAME: Mel Castillo DATE: June 11, 2024 TIME: 9:39 AM Normal [facility] THERAPY NT HNO ID: [id number] Author: MEHREEN MANCERA PT Service: Physical Therapy Author Type: Physical Therapist Type: Therapy (PT/OT/Speech/Resp) Filed: 06/11/2024 09:27 Note Text: Physical Therapy Evaluation Summary SERVICE DATE: 06/11/2024 SERVICE TIME: 804 to 841 ROOM: [place] [address] PT 6 Clicks Score: 18 DISCHARGE RECOMMENDATIONS [...] and signs-other TREATMENT INTERVENTIONS Evaluation, Canalith Repositioning (87065) Skilled Treatment Time (minutes): 37 $ Evaluation-Moderate (86189) Billed Units: 1 unit $ Canalith Repositioning (28723) Billed Units: 1 unit Repositioning maneuver for [...] Positional Testing: Eris-Hallpike, Left, Horizontal Canals, Left [place]-Hallpike, Left: Note: pt with vertigo pattern of [...] (more content not included)... Normal [facility] Urinalysis complete panel (U )on 06-11-2024 Bilirubin Ql (U) Negative Normal Negative [facility] Comment on above: Order Comment: Speci men Type: URINE SPECIMENOrdering Facility: [facility] Address: [address] [place] [address] Performed By: #### 2 4356-8 ####[facility]ORATORYCLIA [id number] [address] [place] Clarity (Unsp spec) Clear Normal Clear [facility] Comment on above: Order Comment: Speci men Type: URINE SPECIMENOrdering Facility: [facility] Address: [address] [place] [address] Performed By: #### 2 4356-8 ####[facility]ORATORYCLIA [id number] [address] [place] Color (U) Light Yellow Normal yellow [facility] Comment on above: Order Comment: Speci men Type: URINE SPECIMENOrdering Facility: [facility] Address: [address] [place] [address] Performed By: #### 2 4356-8 ####[facility] LABORATORYCLIA [id number] [address] [place] Glucose Test strip (U) [Mass/Vol] Negative Normal Trace, Negative [facility] Comment on above: Order Comment: Speci men Type: URINE SPECIMENOrdering Facility: [facility] Address: [address] [place] [address] Performed By: #### 2 4356-8 ####[facility] LABORATORYCLIA [id number] [place] [address] [place] Hemoglobin Ql (U) Trace Normal Negative, Trace [facility] Comment on above: Order Comment: Speci men Type: URINE SPECIMENOrdering Facility: [facility] Address: [address] [place] [address] Performed By: #### 2 4356-8 ####[facility]ATORYCLIA [id number] [address] Ketones Ql (U) Negative Normal Negative, Trace [facility] Comment on above: Order Comment: Speci men Type: URINE SPECIMENOrdering Facility: [facility] Address: [address] [place] [address] Performed By: #### 2 4356-8 ####[facility] LABORATORYCLIA [id number] [address] Leukocyte esterase Test strip Ql (U) Negative Normal Negative, 25 Jose Luis/uL [facility] Comment on above: Order Comment: Speci men Type: URINE SPECIMENOrdering Facility: [facility] Address: [address] [place] [address] Performed By: #### 2 4356-8 ####[facility] LABORATORYCLIA [id number] [address] STATES [facility] Nitrite Ql (U) Negative Normal Negative [facility] Comment on above: Order Comment: Speci men Type: URINE SPECIMENOrdering Facility: [facility] Address: [address] [place] [address] Performed By: #### 2 4356-8 ####[facility] LABORATORYCLIA [id number] [address] pH (U) [pH] High 5.0-8.0 [facility] Comment on above: Order Comment: Speci men Type: URINE SPECIMENOrdering Facility: [facility] Address: [address] [place] [address] Performed By: #### 2 4356-8 ####[facility] LABORATORYCLIA [id number] [address] STATES [facility] Protein (U) [Mass/Vol] 1+ Abnormal Trace , Negative [facility] Comment on above: Order Comment: Speci men Type: URINE SPECIMENOrdering Facility: [facility] Address: [address] [place] [address] Performed By: #### 2 4356-8 ####[facility] LABORATORYCLIA [id number] [address] [place] RBC LM.HPF (Urine sed) [#/Area] 6-10 /HPF Abnormal 0-3 /HPF [facility] Comment on above: Order Comment: Speci men Type: URINE SPECIMENOrdering Facility: [facility] Address: [address] [place] [address] Performed By: #### 2 4356-8 ####[facility] LABORATORYCLIA [id number] [address] STATES [facility] Specific gravity (U) [Rel density] 1.039 High 1.005-1.030 [facility] Comment on above: Order Comment: Speci men Type: URINE SPECIMENOrdering Facility: [facility] Address: [address] [place] [address] Performed By: #### 2 4356-8 ####[facility] LABORATORYCLIA [id number] [address] Urobilinogen Ql (U) Normal Normal Normal [facility] Comment on above: Order Comment: Speci men Type: URINE SPECIMENOrdering Facility: [facility] Address: [address] [place] [address] Performed By: #### 2 4356-8 ####[facility] [id number] [address] [place] [facility] WBC LM.HPF (Urine sed) [#/Area] 0-5 /HPF Normal 0-5 /HPF [facility] Comment on above: Order Comment: Speci men Type: URINE SPECIMENOrdering Facility: [facility] Address: [address] [place] [address] Performed By: #### 2 4356-8 ####[facility] LABORATORYCLIA [id number] [address] [place] aPTT PPPon 06-11-2024 aPTT Coag (PPP) [Time] 28.2 s Normal 23.0-32.4 [facility] Comment on above: Order Comment: Speci men Type: BLOOD SPECIMENOrdering Facility: [facility] Address: [address] [place] [address] Performed By: #### 1 4979-9 ####[facility] LABORATORYCLIA [id number] [address] [place] aPTT Coag (PPP) [Time] 28.9 s Normal 23.0-32.4 [facility] Comment on above: Order Comment: Speci men Type: BLOOD SPECIMEN Ordering Facility: [facility] Address: [address] [place] [address] Performed By: #### 2 1-2, 44178-7, #### [facility] CLIA [id number] [address] [place] CBC W Auto Differential pane l (Bld)on 06-10-2024 Basophils (Bld) [#/Vol] 0.04 10*3/uL Normal <0.11 [facility] Comment on above: Order Comment: Speci men Type: BLOOD SPECIMEN Ordering Facility: [facility] Address: [address] [place] [address] Performed By: #### 2 1-2, 08006-7, #### [facility] CLIA [id number] [address] [place] [facility] Basophils/100 WBC (Bld) 0.7 % Normal A [facility] Comment on above: Order Comment: Speci men Type: BLOOD SPECIMEN Ordering Facility: [facility] Address: [address] [place] [address] Performed By: #### 2 4320-2, 06682-6, #### [facility] CLIA [id number] [address] Differential cell count method Nom (Bld) Auto Normal [facility] Comment on above: Order Comment: Speci men Type: BLOOD SPECIMEN Ordering Facility: [facility] Address: [address] [place] [address] Performed By: #### 2 1-2, 43352-9, #### [facility] CLIA [id number] [address] [place] Eosinophils (Bld) [#/Vol] 10*3/uL Normal <0.46 [facility] Comment on above: Order Comment: Speci men Type: BLOOD SPECIMEN Ordering Facility: [facility] Address: [address] [place] [address] Performed By: #### 2 4321-2, 78264-8, #### [facility] CLIA [id number] [address] STATES OF [facility] Eosinophils/100 WBC (Bld) 0.2 % Normal [facility] Comment on above: Order Comment: Speci men Type: BLOOD SPECIMEN Ordering Facility: [facility] Address: [address] [place] [address] Performed By: #### 2 4321-2, 90795-9, #### [facility] CLIA [id number] [address] [place] Erythrocyte distribution width (RBC) [Ratio] 15.6 % High 11.5-15.0 [facility] Comment on above: Order Comment: Speci men Type: BLOOD SPECIMEN Ordering Facility: [facility] Address: [address] [place] [address] Performed By: #### 2 4320-2, 87915-8, #### [facility] CLIA [id number] [address] Hematocrit (Bld) [Volume fraction] 37.5 % Normal 36.0-46.0 [facility] Comment on above: Order Comment: Speci men Type: BLOOD SPECIMEN Ordering Facility: [facility] Address: [address] [place] [address] Performed By: #### 2 1-2, 13199-9, #### [facility] CLIA [id number] [address] [place] Hemoglobin (Bld) [Mass/Vol] 11.4 g/dL Low 11.5-15.5 [facility] Comment on above: Order Comment: Speci men Type: BLOOD SPECIMEN Ordering Facility: [facility] Address: [address] [place] [address] Performed By: #### 2 4321-2, 08531-0, #### [facility] CLIA [id number] [address] [place] [address] [place] Immature granulocytes (Bld) [#/Vol] 10*3/uL Normal <0.10 [facility] Comment on above: Order Comment: Speci men Type: BLOOD SPECIMEN Ordering Facility: [facility] Address: [address] [place] [address] Performed By: #### 2 4321-2, 49313-4, #### [facility] CLIA [id number] [address] Immature granulocytes/100 WBC (Bld) 0.4 % Normal [facility] Comment on above: Order Comment: Speci men Type: BLOOD SPECIMEN Ordering Facility: [facility] Address: [address] [place] [address] Performed By: #### 2 1-2, 40857-5, #### [facility] CLIA [id number] [address] STATES [facility] Lymphocytes (Bld) [#/Vol] 0.61 10*3/uL Low 1.00-4.00 [facility] Comment on above: Order Comment: Speci men Type: BLOOD SPECIMEN Ordering Facility: [facility] Address: [address] [place] [address] Performed By: #### 2 1-2, 02761-5, #### [facility] CLIA [id number] [address] Lymphocytes/100 WBC (Bld) 10.8 % Normal [facility] Comment on above: Order Comment: Speci men Type: BLOOD SPECIMEN Ordering Facility: [facility] Address: [address] [place] [address] Performed By: #### 2 4321-2, 51082-2, #### [facility] CLIA [id number] [address] [place] MCH (RBC) [Entitic mass] 26.2 pg Normal 26.0-34.0 [facility] Comment on above: Order Comment: Speci men Type: BLOOD SPECIMEN Ordering Facility: [facility] Address: [address] [place] [address] Performed By: #### 2 4321-2, 93636-6, #### [facility] CLIA [id number] [address] MCHC (RBC) [Mass/Vol] 30.4 g/dL Low 30.5-36.0 [facility] Comment on above: Order Comment: Speci men Type: BLOOD SPECIMEN Ordering Facility: [facility] Address: [address] [place] [address] Performed By: #### 2 4321-2, 89068-8, #### [facility] CLIA [id number] [address] STATES OF [facility] MCV (RBC) [Entitic vol] 86.2 fL Normal 80.0-100.0 [facility] Comment on above: Order Comment: Speci men Type: BLOOD SPECIMEN Ordering Facility: [facility] Address: [address] [place] [address] Performed By: #### 2 1-2, 49237-6, #### [facility] CLIA [id number] [address] Monocytes (Bld) [#/Vol] 0.21 10*3/uL Normal <0.87 [facility] Comment on above: Order Comment: Speci men Type: BLOOD SPECIMEN Ordering Facility: [facility] Address: [address] [place] [address] Performed By: #### 2 4321-2, 71016-8, #### [facility] CLIA [id number] [address] Monocytes/100 WBC (Bld) 3.7 % Normal A [facility] Comment on above: Order Comment: Speci men Type: BLOOD SPECIMEN Ordering Facility: [facility] Address: [address] [place] [address] Performed By: #### 2 4321-2, 95672-6, #### [facility] CLIA [id number] [address] [place] [address] [place] Neutrophils (Bld) [#/Vol] 4.78 10*3/uL Normal 1.45-7.50 [facility] Comment on above: Order Comment: Speci men Type: BLOOD SPECIMEN Ordering Facility: [facility] Address: [address] [place] [address] Performed By: #### 2 4321-2, 81822-5, #### [facility] CLIA [id number] [address] [place] Neutrophils/100 WBC (Bld) 84.2 % Normal [facility] Comment on above: Order Comment: Speci men Type: BLOOD SPECIMEN Ordering Facility: [facility] Address: [address] [place] [address] Performed By: #### 2 4321-2, 50032-5, #### [facility] CLIA [id number] [address] [place] [address] [place] Nucleated RBC (Bld) [#/Vol] 10*3/uL Normal <0.01 [facility] Comment on above: Order Comment: Speci men Type: BLOOD SPECIMEN Ordering Facility: [facility] Address: [address] [place] [address] Performed By: #### 2 4321-2, 09134-4, #### [facility] CLIA [id number] [address] [place] [address] [place] Nucleated RBC/100 WBC (Bld) [Ratio] 0.0 /100 WBC Normal [facility] Comment on above: Order Comment: Speci men Type: BLOOD SPECIMEN Ordering Facility: [facility] Address: [address] [place] [address] Performed By: #### 2 4321-2, 63985-5, #### [facility] CLIA [id number] [address] [place] [address] [place] Platelet mean volume (Bld) [Entitic vol] 9.4 fL Normal 9.0-12.7 [facility] Comment on above: Order Comment: Speci men Type: BLOOD SPECIMEN Ordering Facility: [facility] Address: [address] [place] [address] Performed By: #### 2 4321-2, 79668-2, #### [facility] CLIA [id number] [address] Platelets (Bld) [#/Vol] 330 10*3/uL Normal 150-400 [facility] Comment on above: Order Comment: Speci men Type: BLOOD SPECIMEN Ordering Facility: [facility] Address: [address] [place] [address] Performed By: #### 2 4321-2, 34993-7, #### [facility] CLIA [id number] [address] RBC (Bld) [#/Vol] 4.35 10*6/uL Normal 3.90-5.20 [facility] Comment on above: Order Comment: Speci men Type: BLOOD SPECIMEN Ordering Facility: [facility] Address: [address] [place] [address] Performed By: #### 2 4321-2, 14614-6, #### [facility] CLIA [id number] [address] OF [facility] WBC (Bld) [#/Vol] 5.67 10*3/uL Normal 3.70-11.00 [facility] Comment on above: Order Comment: Speci men Type: BLOOD SPECIMEN Ordering Facility: [facility] Address: [address] [place] [address] Performed By: #### 2 4321-2, 16668-5, #### [facility] CLIA [id number] [address] OF [facility] Comprehensive metabolic 2000 panelon 06-10-2024 Albumin [Mass/Vol] 4.2 g/dL Normal 3.9-4.9 [facility] Comment on above: Order Comment: Speci men Type: BLOOD SPECIMENOrdering Facility: [facility] Address: [address] [place] [address] Performed By: #### 3 016-3, 83493-6, 302-7, 40055-7 ####[facility] LABORATORYCLIA [id number] [address] STATES OF [facility] ALP [Catalytic activity/Vol] 99 U/L Normal 34-123 [facility] Comment on above: Order Comment: Speci men Type: BLOOD SPECIMENOrdering Facility: [facility] Address: [address] [place] [address] Performed By: #### 3 016-3, 94636-5, 3023-7, 88070-0 ####[facility] LABORATORYCLIA [id number] [address] ALT With P-5'-P [Catalytic activity/Vol] 8 U/L Normal 7-38 [facility] Comment on above: Order Comment: Speci men Type: BLOOD SPECIMENOrdering Facility: [facility] Address: [address] [place] [address] Performed By: #### 3 016-3, 43413-7, 3023-7, 68941-6 ####[facility] LABORATORYCLIA [id number] [address] Anion gap [Moles/Vol] 12 mmol/L Normal 8-15 [facility] Comment on above: Order Comment: Speci men Type: BLOOD SPECIMENOrdering Facility: [facility] Address: [address] [place] [address] Performed By: #### 3 016-3, 98034-6, 3023-7, 25229-7 ####[facility] LABORATORYCLIA [id number] [address] AST With P-5'-P [Catalytic activity/Vol] 12 U/L Low 13-35 [facility] Comment on above: Order Comment: Speci men Type: BLOOD SPECIMENOrdering Facility: [facility] Address: [address] [place] [address] Performed By: #### 3 016-3, 62737-0, 3024-7, 58322-9 ####[facility] LABORATORYCLIA [id number] [place] [id number] [place] Bilirubin [Mass/Vol] 0.4 mg/dL Normal 0.2-1.3 [facility] Comment on above: Order Comment: Speci men Type: BLOOD SPECIMENOrdering Facility: [facility] Address: [address] [place] [address] Performed By: #### 3 016-3, 15717-4, 3023-7, 04719-4 ####[facility] LABORATORYCLIA [id number] [place] [address] [place] Calcium [Mass/Vol] 9.5 mg/dL Normal 8.5-10.2 [facility] Comment on above: Order Comment: Speci men Type: BLOOD SPECIMENOrdering Facility: [facility] Address: [address] [place] [address] Performed By: #### 3 016-3, 17457-3, 7, 27244-5 ####[facility] LABORATORYCLIA [id number] [place] [address] [place] Chloride [Moles/Vol] 101 mmol/L Normal 98-107 [facility] Comment on above: Order Comment: Speci men Type: BLOOD SPECIMENOrdering Facility: [facility] Address: [address] [place] [address] Performed By: #### 3 016-3, 26270-5, 7, 83053-6 ####[facility] LABORATORYCLIA [id number] [place] [id number] [place] CO2 [Moles/Vol] 23 mmol/L Normal 22-30 [facility] Comment on above: Order Comment: Speci men Type: BLOOD SPECIMENOrdering Facility: [facility] Address: [address] [place] [address] Performed By: #### 3 016-3, 50982-4, 302-7, 65770-2 ####[facility]ITALIA [id number] [address] STATES OF [facility] Creatinine [Mass/Vol] 0.87 mg/dL Normal 0.58-0.96 [facility] Comment on above: Order Comment: Rhina isabella Type: BLOOD SPECIMENOrdering Facility: [facility] Address: [address] [place] [address] Performed By: #### 3 016-3, 09159-3, 3024-7, 21543-9 ####[facility]ITALIA [id number] [address] Creatinine and Glomerular filtration rate.predicted panel (S/P/Bld) 66 mL/min/1.73m??? Normal >=60 [facility] Comment on above: Order Comment: Rhina isabella Type: BLOOD SPECIMENOrdering Facility: [facility] Address: [address] [place] [address] Result Comment: Isa mated Glomerular Filtration Rate [...] actual GFR. Performed By: #### 3 016-3, 85334-3, 3024-7, 93365-9 ####[facility] LABORATORYCLIA [id number] [place] [id number] [place] STATES OF [facility] Glucose [Mass/Vol] 157 mg/dL High 74-99 [facility] Comment on above: Order Comment: Samirrobson mason Type: BLOOD SPECIMENOrdering Facility: [facility] Address: [address] [place] [address] Result Comment: The [place] Diabetes Association (ADA) provides guidance for cutoff [...] Standards of Medical Care in Diabetes 2016, [place] Diabetes Association. Diabetes Care. 2016.39(Suppl 1). Performed By: #### 3 016-3, 11312-1, 3024-7, 74319-6 ####[facility] LABORATORYCLIA [id number] [place] [address] [place] Potassium [Moles/Vol] 4.3 mmol/L Normal 3.7-5.1 [facility] Comment on above: Order Comment: Rhina mason Type: BLOOD SPECIMENOrdering Facility: [facility] Address: [address] [place] [address] Performed By: #### 3 016-3, 89926-9, 3023-7, 09849-1 ####[facility] LABORATORYCLIA [id number] [place] [address] [place] Protein [Mass/Vol] 7.1 g/dL Normal 6.3-8.0 [facility] Comment on above: Order Comment: Rhina mason Type: BLOOD SPECIMENOrdering Facility: [facility] Address: [address] [place] [address] Performed By: #### 3 016-3, 11214-0, 3023-7, 91593-1 ####[facility] LABORATORYCLIA [id number] [place] [address] [place] Sodium [Moles/Vol] 136 mmol/L Normal 136-144 [facility] Comment on above: Order Comment: Samiri isabella Type: BLOOD SPECIMENOrdering Facility: [facility] Address: [address] [place] [address] Performed By: #### 3 016-3, 31351-1, 3023-7, 48764-0 ####[facility] LABORATORYCLIA [id number] [place] [address] [place] Urea nitrogen [Mass/Vol] 14 mg/dL Normal 7-21 [facility] Comment on above: Order Comment: Speci men Type: BLOOD SPECIMENOrdering Facility: [facility] Address: [address] [place] [address] Performed By: #### 3 016-3, 90956-6, 3024-7, 40319-9 ####[facility] LABORATORYCLIA [id number] [place] [address] [place] ECG COMPLETEon 06-10-2024 ECG COMPLETE Ventricular Rate : 6 4 BPM QRS Duration : 90 ms Q-T Interval : 424 ms QTC Calculation(Bazett) : 437 ms Calculated R Equality : 56 degrees Calculated T Equality : 20 degrees ATRIAL FIBRILLATION ABNORMAL ECG NO PREVIOUS ECGS AVAILABLE Confirmed by SAKINA MELLO MD ([id number]) on 12/07/2024 10:44:28 PM NAME : MEL GUADARRAMA PID : [id number] : 1940 Gender : Female Race : ORD : [id number] Procedure Date : Jun 10 2024 23:35:14 Edit Date : Dec 07 2024 22:44:32 Diagnosis: ATRIAL FIBRILLATION ABNORMAL ECG NO PREVIOUS ECGS AVAILABLE Confirmed by SAKINA MELLO MD ([id number]) on 12/07/2024 10:44:28 PM Test Reason : Chest Pain Location : 4 : AKED EM Overread By : SAKINA MELLO MD Edited By : SAKINA MELLO MD Referred By : , Acquired by : REGAN RODRIGES [facility] ED NOTEon 06-10-2024 ED NOTE HNO ID: [id number] Author: DAMARIS HERNANDEZ RN Service: ? Author Type: Registered Nurse Type: ED Notes Filed: 06/10/2024 23:06 Note Text: Bed: 36-ED Expected date: Expected time: Means of arrival: Comments: RAMESH [facility] ED PROV NOTEon 06-10-2024 ED PROV NOTE HNO ID: [id number] Author: THOMAS SERNA MD Service: Emergency Medicine [...] head to the left or right the [place]. No nystagmus noted vertical or lateral The [...] THOMAS SERNA 06/11/24 0519 Normal [facility] ED PROV NOTE HNO ID: [id number] Author: THOMAS SERNA MD Service: Emergency Medicine [...] (more content not included)... Normal [facility] HIGH SENSITIVITY TROPONIN T (INITIAL)on 06-10-2024 Troponin T.cardiac High sensitivity method [Mass/Vol] 14 ng/L High <12 [facility] Comment on above: Order Comment: Rhina mason Type: BLOOD SPECIMENOrdering Facility: [facility] Address: [address] [place] [address] Performed By: #### L [id number] ####[facility] LABORATORYCLIA [id number] [address] STATES OF [facility] HbA1c (Bld)on 06-10-2024 Average glucose Estimated from glycated hemoglobin (Bld) [Mass/Vol] 120 mg/dL Normal [facility] Comment on above: Order Comment: Rhina mason Type: BLOOD SPECIMEN [facility] Address: [address] [place] [address] Result Comment: eAG: (Estimated average glucose) is a calculated value from HgbA1c and is auto service representative of the average blood glucose level in the last 2-3 month period. Performed By: #### 2 4321-2, 13611-6, 11011-9 #### [facility]ORATORY CLIA [id number] [address] [place] HbA1c (Bld) [Mass fraction] 5.8 % High 4.3-5.6 [facility] Comment on above: Order Comment: Samirrobson mason Type: BLOOD SPECIMEN [facility] Address: [address] [place] [address] Result Comment: [place] Diabetes Association guidelines indicate that patients with HgbA1c in the range 5.7-6.4% are at increased risk for development of diabetes, and intervention by lifestyle modification may be beneficial. HgbA1c greater or equal to 6.5% is considered diagnostic of diabetes. Performed By: #### 2 4321-2, 09087-7, 61501-1 #### [facility]OR[facility] CLIA [id number] [address] [place] Lipid 1996 panelon 4 Cholesterol [Mass/Vol] 227 mg/dL High <200 [facility] Comment on above: Order Comment: Rhina isabella Type: BLOOD SPECIMENOrdering Facility: [facility] Address: [address] [place] [address] Result Comment: <200 mg/dL, Desirable 200-239 mg/dL, Borderline high >239 mg/dL, High Performed By: #### 3 016-3, 18162-3, 3024-7, 99450-1 ####[facility] LABORATORYCLIA [id number] [address] [place] Cholesterol in HDL [Mass/Vol] 78 mg/dL Normal >39 [facility] Comment on above: Order Comment: Samirrobson mason Type: BLOOD SPECIMENOrdering Facility: [facility] Address: [address] [place] [address] Result Comment: 40-5 9 mg/dL, Acceptable >59 mg/dL, High: Negative risk factor for coronary heart disease <40 mg/dL, Low: Positive risk factor for coronary heart disease Performed By: #### 3 016-3, 56379-5, 3024-7, 97057-6 ####[facility] LABORATORYCLIA [id number] [address] [place] Cholesterol in LDL [Mass/Vol] 139 mg/dL High <100 [facility] Comment on above: Order Comment: Samirrobson mason Type: BLOOD SPECIMENOrdering Facility: [facility] Address: [address] [place] [address] Result Comment: <100 mg/dL, Optimal 100-129 mg/dL, Near optimal/above optimal 130-159 mg/dL, Borderline high 160-189 mg/dL, High >189 mg/dL, Very high Secondary prevention optimal LDL Cholesterol levels are recommended to be < 70 mg/dL Performed By: #### 3 016-3, 55120-5, 3023-7, 06641-9 ####[facility] LABORATORYCLIA [id number] [place] [address] [place] Cholesterol in LDL/Cholesterol in HDL [Mass ratio] 1.78 {ratio} Normal <2.54 [facility] Comment on above: Order Comment: Speci men Type: BLOOD SPECIMENOrdering Facility: [facility] Address: [address] [place] [address] Result Comment: Refe rence: 1. National Cholesterol Education Program ATP III Guideline At-A-Glance Quick Desk Reference: National Heart, Lung, and Blood Nursery. National Institutes of Health. 2001: NIH Publication No. 01-3305. 2. An International Atherosclerosis Society position paper: global recommendations for the management of dyslipidemia: executive summary, Atherosclerosis. 2014: 232(2):410-413. Performed By: #### 3 016-3, 92207-5, 3024-01, 59871-5 ####[facility] LABORATORYCLIA [id number] [place] [address] [place] Cholesterol in VLDL [Mass/Vol] 10 mg/dL Normal <30 [facility] Comment on above: Order Comment: Samiri men Type: BLOOD SPECIMENOrdering Facility: [facility] Address: [address] [place] [address] Performed By: #### 3 016-3, 72609-6, 3024-01, ####[facility] LABORATORYCLIA [id number] [place] [address] [place] Cholesterol non HDL [Mass/Vol] 149 mg/dL High <130 [facility] Comment on above: Order Comment: Samiri men Type: BLOOD SPECIMENOrdering Facility: [facility] Address: [address] [place] [address] Result Comment: <130 mg/dL, Optimal 130-159 mg/dL, Near optimal/above optimal 160-189 mg/dL, Borderline high 190-219 mg/dL, High >219 mg/dL, Very high Secondary prevention optimal non HDL Cholesterol levels are recommended to be <100 mg/dL Performed By: #### 3 016-3, 48968-8, 3024-7, 54083-7 ####[facility] LABORATORYCLIA [id number] [address] OF [facility] Cholesterol.total/Pastora sterol in HDL [Mass ratio] 2.91 {ratio} Normal <5.10 [facility] Comment on above: Order Comment: Speci men Type: BLOOD SPECIMENOrdering Facility: [facility] Address: [address] [place] [address] Performed By: #### 3 016-3, 65023-6, 3023-7, 32054-9 ####[facility] LABORATORYCLIA [id number] [address] [place] FASTING TIME Normal [facility] Comment on above: Order Comment: Speci men Type: BLOOD SPECIMENOrdering Facility: [facility] Address: [address] [place] [address] Result Comment: Unkn own Performed By: #### 3 016-3, 93994-2, 7, 80971-4 ####[facility] LABORATORYCLIA [id number] [address] [place] Triglyceride [Mass/Vol] 49 mg/dL Normal <150 [facility] Comment on above: Order Comment: Speci men Type: BLOOD SPECIMENOrdering Facility: [facility] Address: [address] [place] [address] Result Comment: <150 mg/dL, Normal 150-199 mg/dL, Borderline high 200-499 mg/dL, High >499 mg/dL, Very high Performed By: #### 3 016-3, 15404-8, 3024-7, 58849-1 ####[facility] LABORATORYCLIA [id number] [address] [place] PT panel Coag (PPP)on 2023 INR Coag (PPP) [Relative time] 1.3 {INR} Normal 0.9-1.3 [facility] Comment on above: Order Comment: Rhina mason Type: BLOOD SPECIMENOrdering Facility: [facility] Address: [address] [place] [address] Result Comment: Mayra min K Antagonist (VKA) Therapeutic Range: INR 2 to 3 (Target INR of 2.5) Note: For patients treated with VKA drugs, such as warfarin, the [place] College of Chest Physicians 2012 Guideline recommends [...] Chest 2012, 141:7S-47S Daren RA, et al. [facility] 2017, 70: 252-289 Performed By: #### 3 4528-0 ####[facility] LABORATORYCLIA [id number] [address] [place] PT Coag (PPP) [Time] 13.2 s High 9.7-13.0 [facility] Comment on above: Order Comment: Rhina mason Type: BLOOD SPECIMENOrdering Facility: [facility] Address: [address] [place] [id number] Performed By: #### 3 4528-0 ####[facility] LABORATORYCLIA [id number] [address] [place] T4 Free SerPl-mCncon 024 Free T4 [Mass/Vol] 1.3 ng/dL Normal 0.9-1.7 [facility] Comment on above: Order Comment: Speci men Type: BLOOD SPECIMENOrdering Facility: [facility] Address: [address] [place], [place] [address] Performed By: #### 3 016-3, 51675-2, 3024-7, 23830-5 ####[facility] LABORATORYCLIA [id number] [place] [id number] [facility] TSH SerPl-aCncon 06-10-2024 TSH Qn 1.620 m[IU]/L Normal 0.270-4.200 [facility] Comment on above: Order Comment: Speci men Type: BLOOD SPECIMENOrdering Facility: [facility] Address: [address] [place], [place] [address] Performed By: #### 3 016-3, 46586-8, 3024-7, 46438-9 ####[facility] LABORATORYCLIA [id number] [place] [id number] [facility] 36on 06-04-2024 36 Normal [facility] 36on 06-01-2024 36 Normal [facility] Progress Noteon 05-22-2024 Progress Note Normal [facility] PT Coag (Bld) [Time]on 05-21 INR Coag (PPP) [Relative time] 2.8 {INR} Abnormal 0.9 - 1.1 [facility] Interpretation and review of laboratory results Abnormal [facility] Progress Noteon 05-21-2024 Progress Note Normal [facility] Progress Note INR reported on yoan Waller with [facility]. Christin can be reached at [phone] with questions. Normal [facility] Protime-INRon 05-21-2024 PT Coag (Bld) [Time] 33.9 s Abnormal 9.0 - 12.0 [facility] US Heart TransthoracicOrdere d By: Davian Landrum on 05-14-2024 Ao Root Index 1.63 cm/m2 [facility] [facility] Work Phone: Aortic Arch 2.6 cm [facility] Work Phone: Aortic Root 2.8 cm [facility] Work Phone: Aortic Sinus Valsalva 2.8 cm [facility] Work Phone: Aortic Sinus Valsalva Index 1.63 cm/m2 [facility] Work Phone: Ascending Aorta 2.7 cm [facility] Work Phone: Ascending Aorta Index 1.57 cm/m2 [facility] Work Phone: AV Area by Peak Velocity 1.4 cm2 [facility] Work Phone: AV Area by VTI 1.4 cm2 [facility] Work Phone: [phone] AV Mean Gradient 3 mmHg [facility] Work Phone: AV Mean Velocity 0.9 m/s [facility] Work Phone: [phone] AV Peak Gradient 7 mmHg [facility] Work Phone: [phone] AV Peak Velocity 1.3 m/s [facility] Work Phone: [phone] AV Velocity Ratio 0.62 [facility] Work Phone: AV VTI 30 cm [facility] Work Phone: POLA/BSA Peak Velocity 0.8 cm2/m2 [facility] Work Phone: POLA/BSA VTI 0.8 cm2/m2 [facility] Work Phone: [phone] E/E' Lateral 14 [facility] Work Phone: E/E' Ratio (Averaged) 18 [facility] Work Phone: E/E' Septal 22 [facility] Work Phone: EF BP 61 % 55 - 100 % [facility] Work Phone: Est. RA Pressure 3 mmHg [facility] Work Phone: Fractional Shortening 2D 30 % 28 - 44 % [facility] Work Phone: [phone] Global Longitudinal Strain -15.3 % [facility] Work Phone: [phone] Interpretation and review of laboratory results Abnormal [facility] Work Phone: [phone] IVC Diameter 1.8 cm [facility] Work Phone: [phone] IVSd 1 cm Abnormal 0.6 - 0.9 cm [facility] Work Phone: LA Diameter 4.1 cm [facility] Work Phone: LA Size Index 2.38 cm/m2 [facility] Work Phone: [phone] LA Volume 2C 63 mL Abnormal 22 - 52 mL [facility] Work Phone: [phone] LA Volume 4C 80 mL Abnormal 22 - 52 mL [facility] Work Phone: LA Volume A/L 76 mL [facility] Work Phone: [phone] LA Volume BP 72 mL Abnormal 22 - 52 mL [facility] Work Phone: [phone] LA Volume Index 2C 37 mL/m2 Abnormal 16 - 34 mL/m2 [facility] Work Phone: LA Volume Index 4C 47 mL/m2 Abnormal 16 - 34 mL/m2 [facility] Work Phone: LA Volume Index A/L 44 mL/m2 16 - 34 mL/m2 [facility] Work Phone: LA Volume Index BP 42 ml/m2 Abnormal 16 - 34 ml/m2 [facility] Work Phone: LA/AO Root Ratio 1.46 [facility] Work Phone: LV E' Lateral Velocity 11 cm/s [facility] Work Phone: LV E' Septal Velocity 7 cm/s [facility] Work Phone: LV EDV A2C 45 mL [facility] Work Phone: LV EDV A4C 48 mL [facility] Work Phone: LV EDV BP 47 mL Abnormal 56 - 104 mL [facility] Work Phone: LV EDV Index A2C 26 mL/m2 [facility] Work Phone: LV EDV Index A4C 28 mL/m2 [facility] Work Phone: LV EDV Index BP 27 mL/m2 [facility] Work Phone: LV Ejection Fraction A2C 68 % [facility] Work Phone: LV Ejection Fraction A4C 55 % [facility] Work Phone: LV ESV A2C 14 mL [facility] Work Phone: LV ESV A4C 21 mL [facility] Work Phone: LV ESV BP 18 mL Abnormal 19 - 49 mL [facility] Work Phone: LV ESV Index A2C 8 mL/m2 [facility] Work Phone: LV ESV Index A4C 12 mL/m2 [facility] Work Phone: LV ESV Index BP 10 mL/m2 [facility] Work Phone: LV Mass 2D 142.5 g 67 - 162 g [facility] Work Phone: [phone] LV Mass 2D Index 82.8 g/m2 43 - 95 g/m2 [facility] Work Phone: LV RWT Ratio 0.47 [facility] Work Phone: LVIDd 4.3 cm 3.9 - 5.3 cm [facility] Work Phone: LVIDd Index 2.5 cm/m2 [facility] [employer] Work Phone: LVIDs 3 cm [facility] Work Phone: LVIDs Index 1.74 cm/m2 [facility] Work Phone: LVOT Area 2.5 cm2 [facility] [employer] Work Phone: LVOT Cardiac Output 3.2 liter/mi nut e [facility] Work Phone: LVOT Diameter 1.8 cm [facility] Work Phone: LVOT Mean Gradient 1 mmHg [facility] [employer] Work Phone: [phone] LVOT Peak Gradient 2 mmHg [facility] Work Phone: LVOT Peak Velocity 0.8 m/s [facility] [employer] Work Phone: LVOT Stroke Volume Index 25.1 mL/m2 [facility] Work Phone: LVOT SV 43.2 ml [facility] Work Phone: LVOT VTI 17 cm [facility] Work Phone: LVOT:AV VTI Index 0.57 [facility] Work Phone: [phone] LVPWd 1 cm Abnormal 0.6 - 0.9 cm [facility] Work Phone: MV A Velocity 0.41 m/s [facility] Work Phone: MV Area by PHT 3.3 cm2 [facility] Work Phone: [phone] MV Area by VTI 1.2 cm2 [facility] Work Phone: MV E Velocity 1.54 m/s [facility] Work Phone: [phone] MV E Wave Deceleration Time 180.9 ms [facility] Work Phone: MV E/A 3.76 [facility] Work Phone: MV Max Velocity 1.7 m/s [facility] Work Phone: MV Mean Gradient 4 mmHg [facility] Work Phone: MV Mean Velocity 0.9 m/s [facility] Work Phone: MV Peak Gradient 11 mmHg [facility] Work Phone: MV PHT 66.9 ms [facility] Work Phone: MV VTI 35.1 cm [facility] Work Phone: MV:LVOT VTI Index 2.06 [facility] H ealth Work Phone: RA Area 4C 55.1 mL [facility] Work Phone: RV Basal Dimension 2.7 cm [facility] Work Phone: RV Free Wall Peak S' 11 cm/s [facility] Work Phone: RV Longitudinal Dimension 4.9 cm [facility] Work Phone: RV Mid Dimension 2.1 cm [facility] Work Phone: [phone] RVSP 54 mmHg [facility] Work Phone: [phone] Sinotubular Junction 2.7 cm [facility] Work Phone: [phone] TAPSE 1.5 cm Abnormal 1.7 cm [facility] Work Phone: [phone] TR Max Velocity 3.56 m/s [facility] Work Phone: [phone] TR Peak Gradient 51 mmHg [facility] Work Phone: [phone] TR Peak Velocity PISA 3.6 m/s [facility] Work Phone: [phone] TR VTI 120.8 cm [facility] Work Phone: [phone] TV EROA 0.2 cm2 [facility] Work Phone: [phone] TV Nyquist Velocity 39 cm/s [facility] Work Phone: [phone] [facility] Work Phone: [phone] Heart Transthoracicon There is a 1.3 [...] time] 2.7 {INR} Abnormal 0.9 - 1.1 [facility] Interpretation and review of laboratory results Abnormal [facility] Progress Noteon 05-09-2024 Progress Note Graciela from [facility] call ed in results. Normal [facility] Progress Note Normal [facility] Protime-INRon 05-09-2024 PT Coag (Bld) [Time] 32.1 s Abnormal 9.0 - 12.0 [facility] PT Coag (Bld) [Time]on 05-01 INR Coag (PPP) [Relative time] 2.7 {INR} Abnormal 0.9 - 1.1 [facility] Interpretation and review of laboratory results Abnormal [facility] Progress Noteon 05-01-2024 Progress Note Normal [facility] Progress Note Tia- [facility]- [phone] Normal [facility] Protime-INRon 05-01-2024 PT Coag (Bld) [Time] 32.4 s Abnormal 9.0 - 12.0 [facility] 36on 04-27-2024 36 Pt requested refill on warfarin 5mg. Sent to [facility]. Receipt confirmed by pharmacy. Normal [facility] Progress Noteon 04-27-2024 Progress Note Normal [facility] Progress Note Tia- [facility]- [phone] Normal [facility] Progress Noteon 04-25-2024 Progress Note Normal [facility] Progress Noteon 04-23-2024 Progress Note Normal [facility] Progress Note Christin [facility] called any questions or concerns [phone]. Normal [facility] PT Coag (Bld) [Time]on 04-19 INR Coag (PPP) [Relative time] 2.1 {INR} Abnormal 0.9 - 1.1 [facility] Interpretation and review of laboratory results Abnormal [facility] Progress Noteon 04-19-2024 Progress Note Normal [facility] Progress Note Graciela with [facility] repo rts INR on vm Graciela can be reached at [phone] with any questions. Normal [facility] Protime-INRon 04-19-2024 PT Coag (Bld) [Time] 24.9 s Abnormal 9.0 - 12.0 [facility] Progress Noteon 04-16-2024 Progress Note Christin- [facility]- [phone] Normal [facility] Progress Note Normal [facility] Progress Noteon 04-14-2024 Progress Note Placed new order for POCT INR, [facility] had not received. Normal [facility] [id number] 04-13-2024 [id number] Normal [facility] APTTon 04-13-2024 aPTT Coag (Bld) [Time] 132.2 s Critically high 20.0-30. 5 [facility] Comment on above: Result Comment: HARRIETE R COMMENTS:NOTE: The therapeutic time for Heparin anticoagulation, based on Xa activity inhibition, is an APTT of 46-80 seconds. Performed By: #### L [id number], [id number] ####Pre Press Operator: VELMA VALADEZ ([id number])[facility] ([address] BASIC METABOLIC PANELon 03-19 Anion gap [Moles/Vol] 2 mmol/L Low 3-13 [facility] Comment on above: Performed By: #### L AB15 ####Pre Press Operator: VELMA VALADEZ ([id number])[facility] ([facility])[address] [place] [address] Calcium [Mass/Vol] 9.0 mg/dL Normal 8.4-10.4 [facility] Comment on above: Performed By: #### L AB15 ####Pre Press Operator: VELMA VALADEZ ([id number])[facility] ([facility])[address] [place] [address] [place] Chloride [Moles/Vol] 108 mmol/L High 98-107 [facility] Comment on above: Performed By: #### L AB15 ####Pre Press Operator: VELMA VALADEZ ([id number])[facility] ([facility])[address] [place] [address] CO2 [Moles/Vol] 25 mmol/L Normal 22-30 [facility] Comment on above: Performed By: #### L AB15 ####Pre Press Operator: VELMA VALADEZ ([id number])[facility] ([facility])[address] [place] [address] Creatinine [Mass/Vol] 1.00 mg/dL Normal 0.52-1.04 [facility] Comment on above: Performed By: #### L AB15 ####Pre Press Operator: VELMA VALADEZ ([id number])[facility] ([facility])[address] [place] [address] [place] GLOMERULAR FILTRATION RATE ML/MIN/1.73 SQ M.PREDICTED 55.7 mL/min/1.73m*2 Low >60.0 [facility] Comment on above: Result Comment: Calc ulation based on the Chronic Kidney Disease Epidemiology Collaboration (CKD-EPI) equation refit without adjustment for race Performed By: #### L AB15 ####Pre Press Operator: VELMA VALADEZ ([id number])[facility] ([facility])[address] [place] [address] [place] Glucose [Mass/Vol] 98 mg/dL Normal 70-100 [facility] Comment on above: Performed By: #### L AB15 ####Pre Press Operator: VELMA VALADEZ ([id number])[facility] ([facility])[address] [place] [address] Potassium [Moles/Vol] 4.3 mmol/L Normal 3.5-5.1 [facility] Comment on above: Performed By: #### L AB15 ####Pre Press Operator: VELMA VALADEZ ([id number])[facility] ([facility])[address] [place] [address] Sodium [Moles/Vol] 135 mmol/L Normal 135-145 [facility] Comment on above: Performed By: #### L AB15 ####Pre Press Operator: VELMA VALADEZ ([id number])[facility] ([facility])[address] [place] [address] Urea nitrogen [Mass/Vol] 18 mg/dL High 7-17 [facility] Comment on above: Performed By: #### L AB15 ####Pre Press Operator: VELMA VALADEZ ([id number])[facility] ([facility])[address] [place] [address] Basic metabolic 1998 panelon 04-13-2024 Anion gap [Moles/Vol] 2 mmol/L Low 3 - 13 mmol/L [facility] Calcium [Mass/Vol] 9.0 mg/dL 8.4 - 10. 4 mg/dL [facility] Chloride [Moles/Vol] 108 mmol/L High 98 - 10 7 mmol/L [facility] CO2 [Moles/Vol] 25 mmol/L 22 - 30 mmol/L [facility] Creatinine [Mass/Vol] 1.00 mg/dL 0.52 - 1.04 mg/dL [facility] GFR/1.73 sq M.predicted (S/P/Bld) [Vol rate/Area] 55.7 mL/min Low - PINF [facility] Comment on above: Calculation based on the Chronic Kidney Disease Epidemiology Collaboration (CKD-EPI) equation refit without adjustment for race Glucose [Mass/Vol] 98 mg/dL 70 - 100 mg/dL [facility] Interpretation and review of laboratory results Abnormal [facility] Potassium [Moles/Vol] 4.3 mmol/L 3.5 - 5.1 mmol/L [facility] Sodium [Moles/Vol] 135 mmol/L 135 - 145 mmol/L [facility] Urea nitrogen [Mass/Vol] 18 mg/dL High 7 - 17 mg/dL [facility] CARECOORDon 04-13-2024 [place]ORD Normal [facility] [place] Normal [facility] CBC W Auto Differential pane l (Bld)on 04-13-2024 Basophils (Bld) [#/Vol] 0.0 10*3/uL 0.0 - 0.2 10*3/uL [facility] Basophils/100 WBC (Bld) 0.7 % 0.0 - 2.0 % [facility] Eosinophils (Bld) [#/Vol] 0.1 10*3/uL 0.0 - 0.5 10*3/uL [facility] Eosinophils/100 WBC (Bld) 2.6 % 0.0 - 6.0 % [facility] Erythrocyte distribution width (RBC) [Ratio] 14.5 % 11.5 - 15.0 % [facility] Hematocrit (Bld) [Volume fraction] 26.3 % Low 35.0 - 47.0 % [facility] Hemoglobin (Bld) [Mass/Vol] 8.6 g/dL Low 11.7 - 16.0 g/dL [facility] Immature granulocytes (Bld) [#/Vol] 0.0 10*3/uL NINF - 0.1 10*3/uL [facility] Immature granulocytes/100 WBC (Bld) 0.2 % 0.0 - 2.0 % [facility] Interpretation and review of laboratory results Abnormal [facility] Lymphocytes (Bld) [#/Vol] 1.4 10*3/uL 1.0 - 4.3 10*3/uL [facility] Lymphocytes/100 WBC (Bld) 33.5 % 15.0 - 45.0 % [facility] MCH (RBC) [Entitic mass] 29.8 pg 26.0 - 34.0 pg [facility] MCHC (RBC) [Mass/Vol] 32.7 % 30.5 - 36.0 % [facility] MCV (RBC) [Entitic vol] 91.0 fL 77.0 - 99.0 fL [facility] Monocytes (Bld) [#/Vol] 0.5 10*3/uL 0.0 - 0.9 10*3/uL [facility] Monocytes/100 WBC (Bld) 11.3 % 5.0 - 13.0 % [facility] Neutrophils (Bld) [#/Vol] 2.2 10*3/uL 1.8 - 7.5 10*3/uL [facility] Neutrophils/100 WBC (Bld) 51.7 % 38.0 - 82.0 % [facility] Nucleated RBC/100 WBC (Bld) [Ratio] 0.0 % [facility] Platelet mean volume (Bld) [Entitic vol] 9.4 fL 9.0 - 12.7 fL [facility] Platelets (Bld) [#/Vol] 317 10*3/uL 140 - 440 10*3/uL [facility] RBC (Bld) [#/Vol] 2.89 10*6/uL Low 3.80 - 5.2 0 10*6/uL [facility] WBC (Bld) [#/Vol] 4.2 10*3/uL 3.6 - 10.7 10*3/uL [facility] CBC WITH AUTO DIFFERENTIALon 04-13-2024 Basophils (Bld) [#/Vol] 0.0 10*3/uL Normal 0.0-0.2 [facility] Comment on above: Performed By: #### L [id number] ####Pre Press Operator: VELMA VALADEZ ([id number])[facility])[address] [place] [address] Basophils/100 WBC (Bld) 0.7 % Normal 0.0-2.0 [facility] Comment on above: Performed By: #### L [id number] ####Pre Press Operator: VELMA VALADEZ ([id number])[facility] ([facility])[address] [place] [address] [place] Eosinophils (Bld) [#/Vol] 0.1 10*3/uL Normal 0.0-0.5 [facility] Comment on above: Performed By: #### L [id number] ####Pre Press Operator: VELMA VALADEZ ([id number])[facility] ([facility])[address] [place] [address] [place] Eosinophils/100 WBC (Bld) 2.6 % Normal 0.0-6.0 [facility] Comment on above: Performed By: #### L [id number] ####Pre Press Operator: VELMA VALADEZ ([id number])[address] Erythrocyte distribution width (RBC) [Ratio] 14.5 % Normal 11.5-15.0 [facility] Comment on above: Performed By: #### L [id number] ####Pre Press Operator: VELMA VALADEZ ([id number])[address] Hematocrit (Bld) [Volume fraction] 26.3 % Low 35.0-47.0 [facility] Comment on above: Performed By: #### L [id number] ####Pre Press Operator: VELMA VALADEZ ([id number])[address] Hemoglobin (Bld) [Mass/Vol] 8.6 g/dL Low 11.7-16.0 [facility] Comment on above: Performed By: #### L [id number] ####Pre Press Operator: VELMA VALADEZ ([id number])[address] IMMATURE GRANS % 0.2 % Normal 0.0-2.0 [facility] Comment on above: Performed By: #### L [id number] ####Pre Press Operator: VELMA VALADEZ ([id number])[address] IMMATURE GRANS ABSOLUTE 0.0 10*3/uL Normal <0.1 [facility] Comment on above: Performed By: #### L [id number] ####Pre Press Operator: VELMA VALADEZ ([id number])[address] Lymphocytes (Bld) [#/Vol] 1.4 10*3/uL Normal 1.0-4.3 [facility] Comment on above: Performed By: #### L [id number] ####Pre Press Operator: VELMA VALADEZ ([id number])[facility])[address] [place] [address] Lymphocytes/100 WBC (Bld) 33.5 % Normal 15.0-45.0 [facility] Comment on above: Performed By: #### L [id number] ####Pre Press Operator: VELMA VALADEZ ([phone])[facility])[address] [place] [address] MCH (RBC) [Entitic mass] 29.8 pg Normal 26.0-34.0 [facility] Comment on above: Performed By: #### L [id number] ####Pre Press Operator: VELMA VALADEZ ([id number])[facility])[address] [place] [address] MCHC 32.7 % Normal 30.5-36.0 [facility] Comment on above: Performed By: #### L [id number] ####Pre Press Operator: VELMA VALADEZ ([id number])[facility])[address] [place] [address] MCV (RBC) [Entitic vol] 91.0 fL Normal 77.0-99.0 [facility] Comment on above: Performed By: #### L [id number] ####Pre Press Operator: VELMA VALADEZ ([id number])[facility])[address] [place] [address] Monocytes (Bld) [#/Vol] 0.5 10*3/uL Normal 0.0-0.9 [facility] Comment on above: Performed By: #### L [id number] ####Pre Press Operator: VELMA VALADEZ ([id number])[facility])[address] [place] [address] Monocytes/100 WBC (Bld) 11.3 % Normal 5.0-13.0 [facility] Comment on above: Performed By: #### L [id number] ####Pre Press Operator: VELMA VALADEZ ([phone])[facility])[address] [place] [address] NEUTROPHILS ABSOLUTE 2.2 10*3/uL Normal 1.8-7.5 [facility] Comment on above: Performed By: #### L [id number] ####Pre Press Operator: VELMA VALADEZ ([id number])[facility] ([facility])[address] [place] [address] Neutrophils/100 WBC (Bld) 51.7 % Normal 38.0-82.0 [facility] Comment on above: Performed By: #### L [id number] ####Pre Press Operator: VELMA VALADEZ ([id number])[facility] ([facility])[address] [place] [address] NRBC 0.0 /100 WBCs Normal 0.0-2.0 [facility] Comment on above: Performed By: #### L [id number] ####Pre Press Operator: VELMA VALADEZ ([id number])[facility] ([facility])[address] [place] [address] Platelet mean volume (Bld) [Entitic vol] 9.4 fL Normal 9.0-12.7 [facility] Comment on above: Performed By: #### L [id number] ####Pre Press Operator: VELMA VALADEZ ([id number])[facility] ([facility])[address] [place] [address] Platelets (Bld) [#/Vol] 317 10*3/uL Normal 140-440 [facility] Comment on above: Performed By: #### L [id number] ####Pre Press Operator: VELMA VALADEZ ([id number])[facility] ([facility])[address] [place] [address] RBC (Bld) [#/Vol] 2.89 10*6/uL Low 3.80-5.20 [facility] Comment on above: Performed By: #### L [id number] ####Pre Press Operator: VELMA VALADEZ ([id number])[facility] ([facility])[address] [place] [address] [place] WBC (Bld) [#/Vol] 4.2 10*3/uL Normal 3.6-10.7 [facility] Comment on above: Performed By: #### [place] [id number] ####Pre Press Operator: VELMA VALADEZ ([phone])[facility])[address] [place] [address] [place] IDNon 04-13-2024 IDN Normal [facility] Laboratory - Coagulationon 0 04-13-2024 PT Coag (Bld) [Time] 24.2 s High 9.0 - 1 2.0 s [facility] Nursing Noteon 04-13-2024 Nursing Note AVS explained. Discharged patient on stable condition. Normal [facility] Nursing Note Instructed patient o n warfarin dosing, she will take 7.5mg tomorrow, and 5mg Tuesday, and then we will check INR with home care on Tuesday as instructed. Normal [facility] PROTHROMBIN TIMEon INR Coag (PPP) [Relative time] 2.3 {INR} High 0.9-1.1 [facility] Comment on above: Result Comment: Timothy mmended [...] Myocardial Infarction Performed By: #### [place] [id number], [id number] ####Pre Press Operator: VELMA VALADEZ ([id number])[facility] ([facility])[address] [place] [address] PT Coag (PPP) [Time] 24.2 s High 9.0-12.0 [facility] Comment on above: Performed By: #### [place] AB320, [id number] ####Pre Press Operator: VELMA VALADEZ ([phone])[facility])[address] [place] [address] PT Coag (Bld) [Time]on 04-13 INR Coag (PPP) [Relative time] 2.3 {INR} High 0.9 - 1.1 [facility] Comment on above: Recommended Anticoag ulant [...] Interpretation and review of laboratory results Abnormal [facility] Progress Noteon 04-13-2024 Progress Note Normal [facility] Progress Note Normal [facility] Progress Note Normal [facility] aPTT Coag (Bld) [Time]Ordere d By: Melany Tejeda on 04-13-2024 aPTT Coag (PPP) [Time] 132.2 s Critically high 20 .0 - 30.5 s [facility] Interpretation and review of laboratory results Abnormal [facility] NOTE: The therapeuti c time for Heparin anticoagulation, based on Xa activity inhibition, is an APTT of 46-80 seconds. [facility] BASIC METABOLIC PANELon 03-19 Anion gap [Moles/Vol] 3 mmol/L Normal 3-13 [facility] Comment on above: Performed By: #### L AB15 ####Pre Press Operator: VELMA VALADEZ ([id number])[facility] [address] Calcium [Mass/Vol] 9.3 mg/dL Normal 8.4-10.4 [facility] Comment on above: Performed By: #### L AB15 ####Pre Press Operator: VELMA VALADEZ ([id number])[facility])[address] [place] [address] Chloride [Moles/Vol] 108 mmol/L High 98-107 [facility] Comment on above: Performed By: #### L AB15 ####Pre Press Operator: VELMA VALADEZ ([id number])[facility])[address] CO2 [Moles/Vol] 24 mmol/L Normal 22-30 [facility] Comment on above: Performed By: #### L AB15 ####Pre Press Operator: VELMA VALADEZ ([id number])[facility])[address] [place] [address] Creatinine [Mass/Vol] 0.99 mg/dL Normal 0.52-1.04 [facility] Comment on above: Performed By: #### L AB15 ####Pre Press Operator: VELMA VALADEZ ([id number])[facility] ([facility])[address] [place] [address] GLOMERULAR FILTRATION RATE ML/MIN/1.73 SQ M.PREDICTED 56.3 mL/min/1.73m*2 Low >60.0 [facility] Comment on above: Result Comment: Calc ulation based on the Chronic Kidney Disease Epidemiology Collaboration (CKD-EPI) equation refit without adjustment for race Performed By: #### L AB15 ####Pre Press Operator: VELMA VALADEZ ([id number])[facility])[address] [place] [address] Glucose [Mass/Vol] 101 mg/dL High 70-100 [facility] Comment on above: Performed By: #### L AB15 ####Pre Press Operator: VELMA VALADEZ ([id number])[facility] ([facility])[address] [place] [address] Potassium [Moles/Vol] 3.9 mmol/L Normal 3.5-5.1 [facility] Comment on above: Performed By: #### L AB15 ####Pre Press Operator: VELMA VALADEZ ([phone])[facility] ([facility])[address] [place] [address] [place] Sodium [Moles/Vol] 135 mmol/L Normal 135-145 [facility] Comment on above: Performed By: #### L AB15 ####Pre Press Operator: VELMA VALADEZ ([id number])[facility])[address] [place] [address] [place] Urea nitrogen [Mass/Vol] 16 mg/dL Normal 7-17 [facility] Comment on above: Performed By: #### L AB15 ####Pre Press Operator: VELMA VALADEZ ([id number])[facility] ([address] Basic metabolic 1998 panelon 04-12-2024 Anion gap [Moles/Vol] 3 mmol/L 3 - 13 mmol/L [facility] Calcium [Mass/Vol] 9.3 mg/dL 8.4 - 10. 4 mg/dL [facility] Chloride [Moles/Vol] 108 mmol/L High 98 - 10 7 mmol/L [facility] CO2 [Moles/Vol] 24 mmol/L 22 - 30 mmol/L [facility] Creatinine [Mass/Vol] 0.99 mg/dL 0.52 - 1.04 mg/dL [facility] GFR/1.73 sq M.predicted (S/P/Bld) [Vol rate/Area] 56.3 mL/min Low - PINF [facility] Comment on above: Calculation based on the Chronic Kidney Disease Epidemiology Collaboration (CKD-EPI) equation refit without adjustment for race Glucose [Mass/Vol] 101 mg/dL High 70 - 100 mg/dL [facility] Interpretation and review of laboratory results Abnormal [facility] Potassium [Moles/Vol] 3.9 mmol/L 3.5 - 5.1 mmol/L [facility] Sodium [Moles/Vol] 135 mmol/L 135 - 145 mmol/L [facility] Urea nitrogen [Mass/Vol] 16 mg/dL 7 - 17 mg/dL [facility] CARECOORDon 04-12-2024 CARECOORD Normal [facility] CBC W Auto Differential pane l (Bld)on 04-12-2024 Basophils (Bld) [#/Vol] 0.0 10*3/uL 0.0 - 0.2 10*3/uL [facility] Basophils/100 WBC (Bld) 0.5 % 0.0 - 2.0 % [facility] Eosinophils (Bld) [#/Vol] 0.1 10*3/uL 0.0 - 0.5 10*3/uL [facility] Eosinophils/100 WBC (Bld) 2.4 % 0.0 - 6.0 % [facility] Erythrocyte distribution width (RBC) [Ratio] 14.8 % 11.5 - 15.0 % [facility] Hematocrit (Bld) [Volume fraction] 28.3 % Low 35.0 - 47.0 % [facility] Hemoglobin (Bld) [Mass/Vol] 9.3 g/dL Low 11.7 - 16.0 g/dL [facility] Immature granulocytes (Bld) [#/Vol] 0.0 10*3/uL NINF - 0.1 10*3/uL [facility] Immature granulocytes/100 WBC (Bld) 0.2 % 0.0 - 2.0 % [facility] Interpretation and review of laboratory results Abnormal [facility] Lymphocytes (Bld) [#/Vol] 1.4 10*3/uL 1.0 - 4.3 10*3/uL [facility] Lymphocytes/100 WBC (Bld) 33.0 % 15.0 - 45.0 % [facility] MCH (RBC) [Entitic mass] 30.4 pg 26.0 - 34.0 pg [facility] MCHC (RBC) [Mass/Vol] 32.9 % 30.5 - 36.0 % [facility] MCV (RBC) [Entitic vol] 92.5 fL 77.0 - 99.0 fL [facility] Monocytes (Bld) [#/Vol] 0.5 10*3/uL 0.0 - 0.9 10*3/uL [facility] Monocytes/100 WBC (Bld) 11.9 % 5.0 - 13.0 % [facility] Neutrophils (Bld) [#/Vol] 2.1 10*3/uL 1.8 - 7.5 10*3/uL [facility] Neutrophils/100 WBC (Bld) 52.0 % 38.0 - 82.0 % [facility] Nucleated RBC/100 WBC (Bld) [Ratio] 0.0 % [facility] Platelet mean volume (Bld) [Entitic vol] 9.5 fL 9.0 - 12.7 fL [facility] Platelets (Bld) [#/Vol] 307 10*3/uL 140 - 440 10*3/uL [facility] RBC (Bld) [#/Vol] 3.06 10*6/uL Low 3.80 - 5.2 0 10*6/uL [facility] WBC (Bld) [#/Vol] 4.1 10*3/uL 3.6 - 10.7 10*3/uL [facility] CBC WITH AUTO DIFFERENTIALon 04-12-2024 Basophils (Bld) [#/Vol] 0.0 10*3/uL Normal 0.0-0.2 [facility] Comment on above: Performed By: #### L [id number] ####Pre Press Operator: VELMA VALADEZ ([id number])[facility])[address] [place] [address] Basophils/100 WBC (Bld) 0.5 % Normal 0.0-2.0 [facility] Comment on above: Performed By: #### L [id number] ####Pre Press Operator: VELMA VALADEZ ([phone])[facility])[address] [place] [address] Eosinophils (Bld) [#/Vol] 0.1 10*3/uL Normal 0.0-0.5 [facility] Comment on above: Performed By: #### L [id number] ####Pre Press Operator: VELMA VALADEZ ([id number])[facility])[address] [place] [address] Eosinophils/100 WBC (Bld) 2.4 % Normal 0.0-6.0 [facility] Comment on above: Performed By: #### L [id number] ####Pre Press Operator: VELMA VALADEZ ([phone])[facility])[address] [place] [address] Erythrocyte distribution width (RBC) [Ratio] 14.8 % Normal 11.5-15.0 [facility] Comment on above: Performed By: #### L [id number] ####Pre Press Operator: VELMA VALADEZ ([phone])[facility])[address] [place] [address] Hematocrit (Bld) [Volume fraction] 28.3 % Low 35.0-47.0 [facility] Comment on above: Performed By: #### L [id number] ####Pre Press Operator: VELMA [id number])[facility])[address] [place] [address] Hemoglobin (Bld) [Mass/Vol] 9.3 g/dL Low 11.7-16.0 [facility] Comment on above: Performed By: #### L [id number] ####Pre Press Operator: VELMA VALADEZ ([phone])[facility])[address] [place] [address] IMMATURE GRANS % 0.2 % Normal 0.0-2.0 [facility] Comment on above: Performed By: #### L [id number] ####Pre Press Operator: VELMA VALADEZ ([phone])[facility])[address] [place] [address] IMMATURE GRANS ABSOLUTE 0.0 10*3/uL Normal <0.1 [facility] Comment on above: Performed By: #### L [id number] ####Pre Press Operator: VELMA VALADEZ ([phone])[facility])[address] [place] [address] Lymphocytes (Bld) [#/Vol] 1.4 10*3/uL Normal 1.0-4.3 [facility] Comment on above: Performed By: #### L [id number] ####Pre Press Operator: VELMA VALADEZ ([phone])[facility])[address] [place] [address] Lymphocytes/100 WBC (Bld) 33.0 % Normal 15.0-45.0 [facility] Comment on above: Performed By: #### L [id number] ####Pre Press Operator: VELMA VALADEZ ([phone])[facility])[address] [place] [address] MCH (RBC) [Entitic mass] 30.4 pg Normal 26.0-34.0 [facility] Comment on above: Performed By: #### L [id number] ####Pre Press Operator: VELMA VALADEZ ([phone])[facility])[address] [place] [address] MCHC 32.9 % Normal 30.5-36.0 [facility] Comment on above: Performed By: #### L [id number] ####Pre Press Operator: VELMA VALADEZ ([id number])[facility])[address] [place] [address] MCV (RBC) [Entitic vol] 92.5 fL Normal 77.0-99.0 [facility] Comment on above: Performed By: #### L [id number] ####Pre Press Operator: VELMA VALADEZ ([phone])[facility] ([facility])[address] [place] [address] Monocytes (Bld) [#/Vol] 0.5 10*3/uL Normal 0.0-0.9 [facility] Comment on above: Performed By: #### L [id number] ####Pre Press Operator: VELMA VALADEZ ([phone])[facility])[address] [place] [address] Monocytes/100 WBC (Bld) 11.9 % Normal 5.0-13.0 [facility] Comment on above: Performed By: #### L [id number] ####Pre Press Operator: VELMA VALADEZ ([phone])[facility])[address] [place] [address] NEUTROPHILS ABSOLUTE 2.1 10*3/uL Normal 1.8-7.5 [facility] Comment on above: Performed By: #### L [id number] ####Pre Press Operator: VELMA VALADEZ ([phone])[facility])[address] [place] [address] Neutrophils/100 WBC (Bld) 52.0 % Normal 38.0-82.0 [facility] Comment on above: Performed By: #### L [id number] ####Pre Press Operator: VELMA VALADEZ ([phone])[facility])[address] [place] [address] [place] NRBC 0.0 /100 WBCs Normal 0.0-2.0 [facility] Comment on above: Performed By: #### L [id number] ####Pre Press Operator: VELMA VALADEZ ([phone])[facility])[address] [place] [address] Platelet mean volume (Bld) [Entitic vol] 9.5 fL Normal 9.0-12.7 [facility] Comment on above: Performed By: #### L [id number] ####Pre Press Operator: VELMA VALADEZ ([id number])[facility] ([facility])[address] [place] [address] Platelets (Bld) [#/Vol] 307 10*3/uL Normal 140-440 [facility] Comment on above: Performed By: #### L [id number] ####Pre Press Operator: VELMA VALADEZ ([phone])[facility] ([facility])[address] [place] [address] RBC (Bld) [#/Vol] 3.06 10*6/uL Low 3.80-5.20 [facility] Comment on above: Performed By: #### L [id number] ####Pre Press Operator: VELMA VALADEZ ([phone])[facility])[address] [place] [address] WBC (Bld) [#/Vol] 4.1 10*3/uL Normal 3.6-10.7 [facility] Comment on above: Performed By: #### L [id number] ####Pre Press Operator: VELMA VALADEZ ([id number])[facility] ([facility])[address] [place] [address] IDNon 04-12-2024 IDN Normal [facility] IDN Normal [facility] Laboratory - Coagulationon 0 04-12-2024 PT Coag (Bld) [Time] 20.3 s High 9.0 - 1 2.0 s [facility] PROTHROMBIN TIMEon INR Coag (PPP) [Relative time] 1.9 {INR} High 0.9-1.1 [facility] Comment on above: Result Comment: Timothy mmended [...] Myocardial Infarction Performed By: #### L [id number] ####Pre Press Operator: VELMA VALADEZ ([phone])[facility])[address] [place] [address] PT Coag (PPP) [Time] 20.3 s High 9.0-12.0 [facility] Comment on above: Performed By: #### L [id number] ####Pre Press Operator: VELMA VALADEZ ([id number])[facility] ([facility])[address] [place] [address] PT Coag (Bld) [Time]on 04-12 INR Coag (PPP) [Relative time] 1.9 {INR} High 0.9 - 1.1 [facility] Comment on above: Recommended Anticoag ulant [...] Interpretation and review of laboratory results Abnormal [facility] Progress Noteon 04-12-2024 Progress Note Normal [facility] Progress Note Normal [facility] APTTon 04-11-2024 aPTT Coag (Bld) [Time] 62.7 s High 20.0-30.5 [facility] Comment on above: Result Comment: BUBBA Garcia COMMENTS:NOTE: The therapeutic time for Heparin anticoagulation, based on Xa activity inhibition, is an APTT of 46-80 seconds. Performed By: #### L [id number] ####Pre Press Operator: VELMA VALADEZ ([id number])[facility] ([facility])[address] [place] [address] aPTT Coag (Bld) [Time] 69.0 s High 20.0-30.5 [facility] Comment on above: Result Comment: BUBBA Garcia COMMENTS:NOTE: The therapeutic time for Heparin anticoagulation, based on Xa activity inhibition, is an APTT of 46-80 seconds. Performed By: #### L [id number], [id number] ####Pre Press Operator: VELMA VALADEZ ([id number])[facility] ([facility])[address] [place] [address] BASIC METABOLIC PANELon - Anion gap [Moles/Vol] 4 mmol/L Normal 3-13 [facility] Comment on above: Performed By: #### L AB15 ####Pre Press Operator: VELMA VALADEZ ([id number])[facility])[address] [place] [address] Calcium [Mass/Vol] 8.8 mg/dL Normal 8.4-10.4 [facility] Comment on above: Performed By: #### L AB15 ####Pre Press Operator: VELMA VALADEZ ([id number])[facility] ([facility])[address] [place] [address] Chloride [Moles/Vol] 108 mmol/L High 98-107 [facility] Comment on above: Performed By: #### L AB15 ####Pre Press Operator: VELMA VALADEZ ([phone])[facility])[address] [place] [address] CO2 [Moles/Vol] 22 mmol/L Normal 22-30 [facility] Comment on above: Performed By: #### L AB15 ####Pre Press Operator: VELMA VALADEZ ([id number])[facility])[address] [place] [address] Creatinine [Mass/Vol] 1.01 mg/dL Normal 0.52-1.04 [facility] Comment on above: Performed By: #### L AB15 ####Pre Press Operator: VELMA [id number])[facility])[address] [place] [address] GLOMERULAR FILTRATION RATE ML/MIN/1.73 SQ M.PREDICTED 55.0 mL/min/1.73m*2 Low >60.0 [facility] Comment on above: Result Comment: Calc ulation based on the Chronic Kidney Disease Epidemiology Collaboration (CKD-EPI) equation refit without adjustment for race Performed By: #### L AB15 ####Pre Press Operator: VELMA VALADEZ ([id number])[facility] ([facility])[address] [place] [address] Glucose [Mass/Vol] 112 mg/dL High 70-100 [facility] Comment on above: Performed By: #### L AB15 ####Pre Press Operator: VELMA VALADEZ ([phone])[facility])[address] [place] [address] Potassium [Moles/Vol] 4.0 mmol/L Normal 3.5-5.1 [facility] Comment on above: Performed By: #### L AB15 ####Pre Press Operator: VELMA VALADEZ ([id number])[facility] ([facility])[address] [place] [address] Sodium [Moles/Vol] 134 mmol/L Low 135-145 [facility] Comment on above: Performed By: #### L AB15 ####Pre Press Operator: VELMA VALADEZ ([id number])[facility])[address] [place] [address] Urea nitrogen [Mass/Vol] 16 mg/dL Normal 7-17 [facility] Comment on above: Performed By: #### L AB15 ####Pre Press Operator: VELMA VALADEZ ([phone])[facility])[address] [place] [address] Basic metabolic 1998 panelon 04-11-2024 Anion gap [Moles/Vol] 4 mmol/L 3 - 13 mmol/L [facility] Calcium [Mass/Vol] 8.8 mg/dL 8.4 - 10. 4 mg/dL [facility] Chloride [Moles/Vol] 108 mmol/L High 98 - 10 7 mmol/L [facility] CO2 [Moles/Vol] 22 mmol/L 22 - 30 mmol/L [facility] Creatinine [Mass/Vol] 1.01 mg/dL 0.52 - 1.04 mg/dL [facility] GFR/1.73 sq M.predicted (S/P/Bld) [Vol rate/Area] 55.0 mL/min Low - PINF [facility] Comment on above: Calculation based on the Chronic Kidney Disease Epidemiology Collaboration (CKD-EPI) equation refit without adjustment for race Glucose [Mass/Vol] 112 mg/dL High 70 - 100 mg/dL [facility] Interpretation and review of laboratory results Abnormal [facility] Potassium [Moles/Vol] 4.0 mmol/L 3.5 - 5.1 mmol/L [facility] Sodium [Moles/Vol] 134 mmol/L Low 135 - 145 mmol/L [facility] Urea nitrogen [Mass/Vol] 16 mg/dL 7 - 17 mg/dL [facility] CARECOORDon 04-11-2024 CARECOORD Normal [facility] CBC W Auto Differential pane l (Bld)on 04-11-2024 Basophils (Bld) [#/Vol] 0.0 10*3/uL 0.0 - 0.2 10*3/uL [facility] Basophils/100 WBC (Bld) 0.9 % 0.0 - 2.0 % [facility] Eosinophils (Bld) [#/Vol] 0.1 10*3/uL 0.0 - 0.5 10*3/uL [facility] Eosinophils/100 WBC (Bld) 2.0 % 0.0 - 6.0 % [facility] Erythrocyte distribution width (RBC) [Ratio] 14.8 % 11.5 - 15.0 % [facility] Hematocrit (Bld) [Volume fraction] 24.6 % Low 35.0 - 47.0 % [facility] Hemoglobin (Bld) [Mass/Vol] 8.3 g/dL Low 11.7 - 16.0 g/dL [facility] Immature granulocytes (Bld) [#/Vol] 0.0 10*3/uL NINF - 0.1 10*3/uL [facility] Immature granulocytes/100 WBC (Bld) 0.2 % 0.0 - 2.0 % [facility] Interpretation and review of laboratory results Abnormal [facility] Lymphocytes (Bld) [#/Vol] 1.4 10*3/uL 1.0 - 4.3 10*3/uL [facility] Lymphocytes/100 WBC (Bld) 31.9 % 15.0 - 45.0 % [facility] MCH (RBC) [Entitic mass] 30.5 pg 26.0 - 34.0 pg [facility] MCHC (RBC) [Mass/Vol] 33.7 % 30.5 - 36.0 % [facility] MCV (RBC) [Entitic vol] 90.4 fL 77.0 - 99.0 fL [facility] Monocytes (Bld) [#/Vol] 0.5 10*3/uL 0.0 - 0.9 10*3/uL [facility] Monocytes/100 WBC (Bld) 11.2 % 5.0 - 13.0 % [facility] Neutrophils (Bld) [#/Vol] 2.4 10*3/uL 1.8 - 7.5 10*3/uL [facility] Neutrophils/100 WBC (Bld) 53.8 % 38.0 - 82.0 % [facility] Nucleated RBC/100 WBC (Bld) [Ratio] 0.0 % [facility] Platelet mean volume (Bld) [Entitic vol] 10.0 fL 9.0 - 12.7 fL [facility] Platelets (Bld) [#/Vol] 244 10*3/uL 140 - 440 10*3/uL [facility] RBC (Bld) [#/Vol] 2.72 10*6/uL Low 3.80 - 5.2 0 10*6/uL [facility] WBC (Bld) [#/Vol] 4.5 10*3/uL 3.6 - 10.7 10*3/uL [facility] CBC WITH AUTO DIFFERENTIALon 04-11-2024 Basophils (Bld) [#/Vol] 0.0 10*3/uL Normal 0.0-0.2 [facility] Comment on above: Performed By: #### L [id number] ####Pre Press Operator: VELMA VALADEZ ([phone])[address] Basophils/100 WBC (Bld) 0.9 % Normal 0.0-2.0 [facility] Comment on above: Performed By: #### L [id number] ####Pre Press Operator: VELMA VALADEZ ([phone])[facility])[address] [place] [address] Eosinophils (Bld) [#/Vol] 0.1 10*3/uL Normal 0.0-0.5 [facility] Comment on above: Performed By: #### L [id number] ####Pre Press Operator: VELMA VALADEZ ([phone])[facility])[address] [place] [address] Eosinophils/100 WBC (Bld) 2.0 % Normal 0.0-6.0 [facility] Comment on above: Performed By: #### L [id number] ####Pre Press Operator: VELMA VALADEZ ([id number])[facility])[address] [place] [address] Erythrocyte distribution width (RBC) [Ratio] 14.8 % Normal 11.5-15.0 [facility] Comment on above: Performed By: #### L [id number] ####Pre Press Operator: VELMA VALADEZ ([phone])[facility])[address] [place] [address] Hematocrit (Bld) [Volume fraction] 24.6 % Low 35.0-47.0 [facility] Comment on above: Performed By: #### L [id number] ####Pre Press Operator: VELMA VALADEZ ([id number])[facility])[address] [place] [address] Hemoglobin (Bld) [Mass/Vol] 8.3 g/dL Low 11.7-16.0 [facility] Comment on above: Performed By: #### L [id number] ####Pre Press Operator: VELMA VALADEZ ([phone])[facility])[address] [place] [address] IMMATURE GRANS % 0.2 % Normal 0.0-2.0 [facility] Comment on above: Performed By: #### L [id number] ####Pre Press Operator: VELMA VALADEZ ([id number])[facility])[address] [place] [address] IMMATURE GRANS ABSOLUTE 0.0 10*3/uL Normal <0.1 [facility] Comment on above: Performed By: #### L [id number] ####Pre Press Operator: VELMA VALADEZ ([phone])[facility])[address] [place] [address] Lymphocytes (Bld) [#/Vol] 1.4 10*3/uL Normal 1.0-4.3 [facility] Comment on above: Performed By: #### L [id number] ####Pre Press Operator: VELMA VALADEZ ([id number])[address] Lymphocytes/100 WBC (Bld) 31.9 % Normal 15.0-45.0 [facility] Comment on above: Performed By: #### L [id number] ####Pre Press Operator: VELMA VALADEZ ([id number])[facility])[address] [place] [address] MCH (RBC) [Entitic mass] 30.5 pg Normal 26.0-34.0 [facility] Comment on above: Performed By: #### L [id number] ####Pre Press Operator: VELMA VALADEZ ([phone])[facility])[address] [place] [address] MCHC 33.7 % Normal 30.5-36.0 [facility] Comment on above: Performed By: #### L [id number] ####Pre Press Operator: VELMA VALADEZ ([phone])[facility])[address] [place] [address] MCV (RBC) [Entitic vol] 90.4 fL Normal 77.0-99.0 [facility] Comment on above: Performed By: #### L [id number] ####Pre Press Operator: VELMA VALADEZ ([id number])[facility] ([facility])[address] [place] [address] Monocytes (Bld) [#/Vol] 0.5 10*3/uL Normal 0.0-0.9 [facility] Comment on above: Performed By: #### L [id number] ####Pre Press Operator: VELMA VALADEZ ([id number])[facility] ([facility])[address] [place] [address] Monocytes/100 WBC (Bld) 11.2 % Normal 5.0-13.0 [facility] Comment on above: Performed By: #### L [id number] ####Pre Press Operator: VELMA VALADEZ ([id number])[facility] ([facility])[address] [place] [address] NEUTROPHILS ABSOLUTE 2.4 10*3/uL Normal 1.8-7.5 [facility] Comment on above: Performed By: #### L [id number] ####Pre Press Operator: VELMA VALADEZ ([phone])[facility] ([facility])[address] [place] [address] Neutrophils/100 WBC (Bld) 53.8 % Normal 38.0-82.0 [facility] Comment on above: Performed By: #### L [id number] ####Pre Press Operator: VELMA VALADEZ ([id number])[facility] ([facility])[address] [place] [address] NRBC 0.0 /100 WBCs Normal 0.0-2.0 [facility] Comment on above: Performed By: #### L [id number] ####Pre Press Operator: VELMA VALADEZ ([id number])[facility] ([facility])[address] [place] [address] Platelet mean volume (Bld) [Entitic vol] 10.0 fL Normal 9.0-12.7 [facility] Comment on above: Performed By: #### L [id number] ####Pre Press Operator: VELMA VALADEZ ([id number])[facility] ([facility])[address] [place] [address] [place] Platelets (Bld) [#/Vol] 244 10*3/uL Normal 140-440 [facility] Comment on above: Performed By: #### L [id number] ####Pre Press Operator: VELMA VALADEZ ([id number])[facility])[address] [place] [address] RBC (Bld) [#/Vol] 2.72 10*6/uL Low 3.80-5.20 [facility] Comment on above: Performed By: #### L [id number] ####Pre Press Operator: VELMA VALADEZ ([id number])[facility] ([facility])[address] [place] [address] WBC (Bld) [#/Vol] 4.5 10*3/uL Normal 3.6-10.7 [facility] Comment on above: Performed By: #### L [id number] ####Pre Press Operator: VELMA VALADEZ ([id number])[facility])[address] [place] [address] IDNon 04-11-2024 IDN Normal [facility] IDN Normal [facility] - Coagulationon 0 04-11-2024 PT Coag (Bld) [Time] 20.9 s High 9.0 - 1 2.0 s [facility] No Panel Informationon 04-11 Interpretation and review of laboratory results Abnormal [facility] PROTHROMBIN TIMEon INR Coag (PPP) [Relative time] 1.9 {INR} High 0.9-1.1 [facility] Comment on above: Result Comment: Timothy mmended [...] Myocardial Infarction Performed By: #### L [id number], [id number] ####Pre Press Operator: VELMA VALADEZ ([id number])[facility] ([facility])[address] [place], [place] [id number] [place] [address] PT Coag (PPP) [Time] 20.9 s High 9.0-12.0 [facility] Comment on above: Performed By: #### L [id number], [id number] ####Pre Press Operator: VELMA VALADEZ ([id number])[facility] ([facility])[address] [place] [address] PT Coag (Bld) [Time]on 04-11 INR Coag (PPP) [Relative time] 1.9 {INR} High 0.9 - 1.1 [facility] Comment on above: Recommended Anticoag ulant [...] Infarction Progress Noteon 04-11-2024 Progress Note Normal [facility] Progress Note Normal [facility] Progress Note Normal [facility] Progress Note Normal [facility] aPTT Coag (Bld) [Time]on aPTT Coag (PPP) [Time] 62.7 s High 20.0 - 30.5 s [facility] Interpretation and review of laboratory results Abnormal [facility] NOTE: The therapeuti c time for Heparin anticoagulation, based on Xa activity inhibition, is an APTT of 46-80 seconds. [facility] aPTT Coag (PPP) [Time] 69.0 s High 20.0 - 30.5 s [facility] NOTE: The therapeuti c time for Heparin anticoagulation, based on Xa activity inhibition, is an APTT of 46-80 seconds. [facility] APTTon 04-10-2024 aPTT Coag (Bld) [Time] 59.0 s High 20.0-30.5 [facility] Comment on above: Result Comment: BUBBA Garcia COMMENTS:NOTE: The therapeutic time for Heparin anticoagulation, based on Xa activity inhibition, is an APTT of 46-80 seconds. Performed By: #### L AB325 ####Pre Press Operator: VELMA VALADEZ ([phone])[facility])[address] [place] [address] aPTT Coag (Bld) [Time] 77.3 s High 20.0-30.5 [facility] Comment on above: Result Comment: BUBBA Garcia COMMENTS:NOTE: The therapeutic time for Heparin anticoagulation, based on Xa activity inhibition, is an APTT of 46-80 seconds. Performed By: #### L AB325, [id number] ####Pre Press Operator: VELMA VALADEZ ([phone])[facility] ([facility])[address] [place] [address] BASIC METABOLIC PANELon 09-2 Anion gap [Moles/Vol] 3 mmol/L Normal 3-13 [facility] Comment on above: Performed By: #### L AB15 ####Pre Press Operator: VELMA VALADEZ ([id number])[facility] ([facility])[address] [place] [address] Calcium [Mass/Vol] 9.0 mg/dL Normal 8.4-10.4 [facility] Comment on above: Performed By: #### L AB15 ####Pre Press Operator: VELMA VALADEZ ([id number])[facility] ([facility])[address] [place] [address] Chloride [Moles/Vol] 111 mmol/L High 98-107 [facility] Comment on above: Performed By: #### L AB15 ####Pre Press Operator: VELMA VALADEZ ([id number])[facility] ([facility])[address] [place] [address] CO2 [Moles/Vol] 21 mmol/L Low 22-30 [facility] Comment on above: Performed By: #### L AB15 ####Pre Press Operator: VELMA VALADEZ ([id number])[facility] ([facility])[address] [place] [address] Creatinine [Mass/Vol] 1.00 mg/dL Normal 0.52-1.04 [facility] Comment on above: Performed By: #### L AB15 ####Pre Press Operator: VELMA VALADEZ ([phone])[facility])[address] [place] [address] GLOMERULAR FILTRATION RATE ML/MIN/1.73 SQ M.PREDICTED 55.7 mL/min/1.73m*2 Low >60.0 [facility] Comment on above: Result Comment: Calc ulation based on the Chronic Kidney Disease Epidemiology Collaboration (CKD-EPI) equation refit without adjustment for race Performed By: #### L AB15 ####Pre Press Operator: VELMA VALADEZ ([phone])[facility])[address] [place] [address] Glucose [Mass/Vol] 101 mg/dL High 70-100 [facility] Comment on above: Performed By: #### L AB15 ####Pre Press Operator: VELMA VALADEZ ([phone])[facility] ([facility])[address] [place] [address] Potassium [Moles/Vol] 3.8 mmol/L Normal 3.5-5.1 [facility] Comment on above: Performed By: #### L AB15 ####Pre Press Operator: VELMA VALADEZ ([phone])[facility] ([facility])[address] [place] [address] Sodium [Moles/Vol] 136 mmol/L Normal 135-145 [facility] Comment on above: Performed By: #### L AB15 ####Pre Press Operator: VELMA VALADEZ ([phone])[facility] [facility] [place] [address] [place] Urea nitrogen [Mass/Vol] 15 mg/dL Normal 7-17 [facility] Comment on above: Performed By: #### L [id number] ####Pre Press Operator: VELMA VALADEZ ([id number])[facility] ([facility])[address] [place] [address] Basic metabolic 1998 panelon 04-10-2024 Anion gap [Moles/Vol] 3 mmol/L 3 - 13 mmol/L [facility] Calcium [Mass/Vol] 9.0 mg/dL 8.4 - 10. 4 mg/dL [facility] Chloride [Moles/Vol] 111 mmol/L High 98 - 10 7 mmol/L [facility] CO2 [Moles/Vol] 21 mmol/L Low 22 - 30 mmol/L [facility] Creatinine [Mass/Vol] 1.00 mg/dL 0.52 - 1.04 mg/dL [facility] GFR/1.73 sq M.predicted (S/P/Bld) [Vol rate/Area] 55.7 mL/min Low - PINF [facility] Comment on above: Calculation based on the Chronic Kidney Disease Epidemiology Collaboration (CKD-EPI) equation refit without adjustment for race Glucose [Mass/Vol] 101 mg/dL High 70 - 100 mg/dL [facility] Interpretation and review of laboratory results Abnormal [facility] Potassium [Moles/Vol] 3.8 mmol/L 3.5 - 5.1 mmol/L [facility] Sodium [Moles/Vol] 136 mmol/L 135 - 145 mmol/L [facility] Urea nitrogen [Mass/Vol] 15 mg/dL 7 - 17 mg/dL [facility] CARECOORDon 04-10-2024 CARECOORD Normal [facility] CBC W Auto Differential pane l (Bld)on 04-10-2024 Basophils (Bld) [#/Vol] 0.0 10*3/uL 0.0 - 0.2 10*3/uL [facility] Basophils/100 WBC (Bld) 0.7 % 0.0 - 2.0 % [facility] Eosinophils (Bld) [#/Vol] 0.1 10*3/uL 0.0 - 0.5 10*3/uL [facility] Eosinophils/100 WBC (Bld) 2.1 % 0.0 - 6.0 % [facility] Erythrocyte distribution width (RBC) [Ratio] 14.7 % 11.5 - 15.0 % [facility] Hematocrit (Bld) [Volume fraction] 26.0 % Low 35.0 - 47.0 % [facility] Hemoglobin (Bld) [Mass/Vol] 8.6 g/dL Low 11.7 - 16.0 g/dL [facility] Immature granulocytes (Bld) [#/Vol] 0.0 10*3/uL NINF - 0.1 10*3/uL [facility] Immature granulocytes/100 WBC (Bld) 0.2 % 0.0 - 2.0 % [facility] Interpretation and review of laboratory results Abnormal [facility] Lymphocytes (Bld) [#/Vol] 1.4 10*3/uL 1.0 - 4.3 10*3/uL [facility] Lymphocytes/100 WBC (Bld) 32.9 % 15.0 - 45.0 % [facility] MCH (RBC) [Entitic mass] 30.1 pg 26.0 - 34.0 pg [facility] MCHC (RBC) [Mass/Vol] 33.1 % 30.5 - 36.0 % [facility] MCV (RBC) [Entitic vol] 90.9 fL 77.0 - 99.0 fL [facility] Monocytes (Bld) [#/Vol] 0.6 10*3/uL 0.0 - 0.9 10*3/uL [facility] Monocytes/100 WBC (Bld) 13.6 % High 5.0 - 13.0 % [facility] Neutrophils (Bld) [#/Vol] 2.1 10*3/uL 1.8 - 7.5 10*3/uL [facility] Neutrophils/100 WBC (Bld) 50.5 % 38.0 - 82.0 % [facility] Nucleated RBC/100 WBC (Bld) [Ratio] 0.0 % [facility] Platelet mean volume (Bld) [Entitic vol] 10.0 fL 9.0 - 12.7 fL [facility] Platelets (Bld) [#/Vol] 238 10*3/uL 140 - 440 10*3/uL [facility] RBC (Bld) [#/Vol] 2.86 10*6/uL Low 3.80 - 5.2 0 10*6/uL [facility] WBC (Bld) [#/Vol] 4.3 10*3/uL 3.6 - 10.7 10*3/uL [facility] CBC WITH AUTO DIFFERENTIALon 04-10-2024 Basophils (Bld) [#/Vol] 0.0 10*3/uL Normal 0.0-0.2 [facility] Comment on above: Performed By: #### L [id number] ####Pre Press Operator: VELMA VALADEZ ([id number])[facility] ([facility])[address] [place] [address] Basophils/100 WBC (Bld) 0.7 % Normal 0.0-2.0 [facility] Comment on above: Performed By: #### L [id number] ####Pre Press Operator: VELMA VALADEZ ([id number])[facility] ([facility])[address] [place] [address] Eosinophils (Bld) [#/Vol] 0.1 10*3/uL Normal 0.0-0.5 [facility] Comment on above: Performed By: #### L [id number] ####Pre Press Operator: VELMA VALADEZ ([phone])[facility])[address] [place] [address] Eosinophils/100 WBC (Bld) 2.1 % Normal 0.0-6.0 [facility] Comment on above: Performed By: #### L [id number] ####Pre Press Operator: VELMA VALADEZ ([phone])[facility])[address] [place] [address] Erythrocyte distribution width (RBC) [Ratio] 14.7 % Normal 11.5-15.0 [facility] Comment on above: Performed By: #### L [id number] ####Pre Press Operator: VELMA VALADEZ ([id number])[facility])[address] [place] [address] Hematocrit (Bld) [Volume fraction] 26.0 % Low 35.0-47.0 [facility] Comment on above: Performed By: #### L [id number] ####Pre Press Operator: VELMA VALADEZ ([phone])[facility])[address] [place] [address] Hemoglobin (Bld) [Mass/Vol] 8.6 g/dL Low 11.7-16.0 [facility] Comment on above: Performed By: #### L [id number] ####Pre Press Operator: VELMA VALADEZ ([phone])[facility])[address] [place] [address] IMMATURE GRANS % 0.2 % Normal 0.0-2.0 [facility] Comment on above: Performed By: #### L [id number] ####Pre Press Operator: VELMA VALADEZ ([phone])[facility])[address] [place] [address] IMMATURE GRANS ABSOLUTE 0.0 10*3/uL Normal <0.1 [facility] Comment on above: Performed By: #### L [id number] ####Pre Press Operator: VELMA VALADEZ ([phone])[facility])[address] [place] [address] Lymphocytes (Bld) [#/Vol] 1.4 10*3/uL Normal 1.0-4.3 [facility] Comment on above: Performed By: #### L [id number] ####Pre Press Operator: VELMA VALADEZ ([phone])[facility])[address] [place] [address] Lymphocytes/100 WBC (Bld) 32.9 % Normal 15.0-45.0 [facility] Comment on above: Performed By: #### L [id number] ####Pre Press Operator: VELMA VALADEZ ([phone])[facility])[address] [place] [address] MCH (RBC) [Entitic mass] 30.1 pg Normal 26.0-34.0 [facility] Comment on above: Performed By: #### L [id number] ####Pre Press Operator: VELMA VALADEZ ([phone])[facility])[address] [place] [address] MCHC 33.1 % Normal 30.5-36.0 [facility] Comment on above: Performed By: #### L [id number] ####Pre Press Operator: VELMA VALADEZ ([phone])[facility])[address] [place] [address] MCV (RBC) [Entitic vol] 90.9 fL Normal 77.0-99.0 [facility] Comment on above: Performed By: #### L [id number] ####Pre Press Operator: VELMA VALADEZ ([phone])[facility])[address] [place] [address] Monocytes (Bld) [#/Vol] 0.6 10*3/uL Normal 0.0-0.9 [facility] Comment on above: Performed By: #### L [id number] ####Pre Press Operator: VELMA VALADEZ ([id number])[facility] ([facility])[address] [place] [address] Monocytes/100 WBC (Bld) 13.6 % High 5.0-13.0 [facility] Comment on above: Performed By: #### L [id number] ####Pre Press Operator: VELMA VALADEZ ([id number])[facility])[address] [place] [address] NEUTROPHILS ABSOLUTE 2.1 10*3/uL Normal 1.8-7.5 [facility] Comment on above: Performed By: #### L [id number] ####Pre Press Operator: VELMA VALADEZ ([id number])[facility] ([facility])[address] [place] [address] Neutrophils/100 WBC (Bld) 50.5 % Normal 38.0-82.0 [facility] Comment on above: Performed By: #### L [id number] ####Pre Press Operator: VELMA VALADEZ ([phone])[facility])[address] [place] [address] NRBC 0.0 /100 WBCs Normal 0.0-2.0 [facility] Comment on above: Performed By: #### L [id number] ####Pre Press Operator: VELMA VALADEZ ([phone])[facility])[address] [place] [address] Platelet mean volume (Bld) [Entitic vol] 10.0 fL Normal 9.0-12.7 [facility] Comment on above: Performed By: #### L [id number] ####Pre Press Operator: VELMA VALADEZ ([id number])[facility] ([facility])[address] [place] [address] Platelets (Bld) [#/Vol] 238 10*3/uL Normal 140-440 [facility] Comment on above: Performed By: #### L [id number] ####Pre Press Operator: VELMA VALADEZ ([id number])[facility] ([facility])[address] [place] [address] RBC (Bld) [#/Vol] 2.86 10*6/uL Low 3.80-5.20 [facility] Comment on above: Performed By: #### L [id number] ####Pre Press Operator: VELMA VALADEZ ([id number])[facility] ([facility])[address] [place] [address] WBC (Bld) [#/Vol] 4.3 10*3/uL Normal 3.6-10.7 [facility] Comment on above: Performed By: #### L [id number] ####Pre Press Operator: VELMA VALADEZ ([phone])[facility] ([facility])[address] [place] [address] IDNon 04-10-2024 IDN Normal [facility] - Coagulationon 0 04-10-2024 PT Coag (Bld) [Time] 17.7 s High 9.0 - 1 2.0 s [facility] No Panel Informationon 04-10 Interpretation and review of laboratory results Abnormal [facility] PROTHROMBIN TIMEon INR Coag (PPP) [Relative time] 1.6 {INR} High 0.9-1.1 [facility] Comment on above: Result Comment: Timothy mmended [...] Myocardial Infarction Performed By: #### L [id number], [id number] ####Pre Press Operator: VELMA VALADEZ ([phone])[facility] ([facility])[address] [place] [address] PT Coag (PPP) [Time] 17.7 s High 9.0-12.0 [facility] Comment on above: Performed By: #### L [id number], [id number] ####Pre Press Operator: VELMA VALADEZ ([id number])[facility] ([facility])[address] [place] [address] PT Coag (Bld) [Time]on 04-10 INR Coag (PPP) [Relative time] 1.6 {INR} High 0.9 - 1.1 [facility] Comment on above: Recommended Anticoag ulant [...] Progress Noteon 04-10-2024 Progress Note Normal [facility] Progress Note Nutrition update completed. Chart reviewed. Patient to be monitored and followed by the diet gis mapping technician. Jessica Doran, FADI Normal [facility] Progress Note Normal [facility] aPTT Coag (Bld) [Time]on aPTT Coag (PPP) [Time] 59.0 s High 20.0 - 30.5 s [facility] Interpretation and review of laboratory results Abnormal [facility] NOTE: The therapeuti c time for Heparin anticoagulation, based on Xa activity inhibition, is an APTT of 46-80 seconds. [facility] aPTT Coag (PPP) [Time] 77.3 s High 20.0 - 30.5 s [facility] NOTE: The therapeuti c time for Heparin anticoagulation, based on Xa activity inhibition, is an APTT of 46-80 seconds. [facility] APTTon 04-09-2024 aPTT Coag (Bld) [Time] 58.9 s High 20.0-30.5 [facility] Comment on above: Result Comment: BUBBA Garcia COMMENTS:NOTE: The therapeutic time for Heparin anticoagulation, based on Xa activity inhibition, is an APTT of 46-80 seconds. Performed By: #### L [id number] ####Pre Press Operator: VELMA VALADEZ ([phone])[facility])[address] [place] [address] aPTT Coag (Bld) [Time] 64.6 s High 20.0-30.5 [facility] Comment on above: Result Comment: BUBBA Garcia COMMENTS:NOTE: The therapeutic time for Heparin anticoagulation, based on Xa activity inhibition, is an APTT of 46-80 seconds. Performed By: #### L [id number] ####Pre Press Operator: VELMA [id number])[address] aPTT Coag (Bld) [Time] 82.3 s High 20.0-30.5 [facility] Comment on above: Result Comment: BUBBA Garcia COMMENTS:NOTE: The therapeutic time for Heparin anticoagulation, based on Xa activity inhibition, is an APTT of 46-80 seconds. Performed By: #### L [id number], [id number] ####Pre Press Operator: VELMA [id number])[address] BASIC METABOLIC PANELon 03-19 Anion gap [Moles/Vol] 5 mmol/L Normal 3-13 [facility] Comment on above: Performed By: #### L AB15 ####Pre Press Operator: VELMA [id number])[address] Calcium [Mass/Vol] 8.9 mg/dL Normal 8.4-10.4 [facility] Comment on above: Performed By: #### L AB15 ####Pre Press Operator: VELMA [id number])[facility])[address] [place] [address] Chloride [Moles/Vol] 116 mmol/L High 98-107 [facility] Comment on above: Performed By: #### L AB15 ####Pre Press Operator: VELMA VALADEZ ([phone])[facility] ([facility])[address] [place] [address] CO2 [Moles/Vol] 16 mmol/L Low 22-30 [facility] Comment on above: Performed By: #### L AB15 ####Pre Press Operator: VELMA VALADEZ ([id number])[facility] ([facility])[address] [place] [address] Creatinine [Mass/Vol] 0.93 mg/dL Normal 0.52-1.04 [facility] Comment on above: Performed By: #### L AB15 ####Pre Press Operator: VELMA VALADEZ ([id number])[facility] ([facility])[address] [place] [address] GLOMERULAR FILTRATION RATE ML/MIN/1.73 SQ M.PREDICTED 60.7 mL/min/1.73m*2 Normal >60.0 [facility] Comment on above: Result Comment: Calc ulation based on the Chronic Kidney Disease Epidemiology Collaboration (CKD-EPI) equation refit without adjustment for race Performed By: #### L AB15 ####Pre Press Operator: VELMA [id number])[facility] ([facility])[address] [place] [address] Glucose [Mass/Vol] 119 mg/dL High 70-100 [facility] Comment on above: Performed By: #### L AB15 ####Pre Press Operator: VELMA VALADEZ ([phone])[facility] ([facility])[address] [place] [address] Potassium [Moles/Vol] 4.4 mmol/L Normal 3.5-5.1 [facility] Comment on above: Performed By: #### L AB15 ####Pre Press Operator: VELMA [id number])[facility])[address] [place] [address] [place] Sodium [Moles/Vol] 136 mmol/L Normal 135-145 [facility] Comment on above: Performed By: #### L AB15 ####Pre Press Operator: VELMA VALADEZ ([id number])[facility] [place] [address] Urea nitrogen [Mass/Vol] 16 mg/dL Normal 7-17 [facility] Comment on above: Performed By: #### L AB15 ####Pre Press Operator: VELMA VALADEZ ([id number])[facility] ([facility])[address] [place] [address] Basic metabolic 1998 panelon 04-09-2024 Anion gap [Moles/Vol] 5 mmol/L 3 - 13 mmol/L [facility] Calcium [Mass/Vol] 8.9 mg/dL 8.4 - 10. 4 mg/dL [facility] Chloride [Moles/Vol] 116 mmol/L High 98 - 10 7 mmol/L [facility] CO2 [Moles/Vol] 16 mmol/L Low 22 - 30 mmol/L [facility] Creatinine [Mass/Vol] 0.93 mg/dL 0.52 - 1.04 mg/dL [facility] GFR/1.73 sq M.predicted (S/P/Bld) [Vol rate/Area] 60.7 [facility] - [facility] Comment on above: Calculation based on the Chronic Kidney Disease Epidemiology Collaboration (CKD-EPI) equation refit without adjustment for race Glucose [Mass/Vol] 119 mg/dL High 70 - 100 mg/dL [facility] Interpretation and review of laboratory results Abnormal [facility] Potassium [Moles/Vol] 4.4 mmol/L 3.5 - 5.1 mmol/L [facility] Sodium [Moles/Vol] 136 mmol/L 135 - 145 mmol/L [facility] Urea nitrogen [Mass/Vol] 16 mg/dL 7 - 17 mg/dL [facility] CARECOORDon 04-09-2024 CARECOORD Normal [facility] CBC W Auto Differential pane l (Bld)on 04-09-2024 Basophils (Bld) [#/Vol] 0.0 10*3/uL 0.0 - 0.2 10*3/uL [facility] Basophils/100 WBC (Bld) 0.6 % 0.0 - 2.0 % [facility] Eosinophils (Bld) [#/Vol] 0.1 10*3/uL 0.0 - 0.5 10*3/uL [facility] Eosinophils/100 WBC (Bld) 0.9 % 0.0 - 6.0 % [facility] Erythrocyte distribution width (RBC) [Ratio] 14.8 % 11.5 - 15.0 % [facility] Hematocrit (Bld) [Volume fraction] 28.2 % Low 35.0 - 47.0 % [facility] Hemoglobin (Bld) [Mass/Vol] 9.0 g/dL Low 11.7 - 16.0 g/dL [facility] Immature granulocytes (Bld) [#/Vol] 0.0 10*3/uL NINF - 0.1 10*3/uL [facility] Immature granulocytes/100 WBC (Bld) 0.4 % 0.0 - 2.0 % [facility] Interpretation and review of laboratory results Abnormal [facility] Lymphocytes (Bld) [#/Vol] 2.2 10*3/uL 1.0 - 4.3 10*3/uL [facility] Lymphocytes/100 WBC (Bld) 31.2 % 15.0 - 45.0 % [facility] MCH (RBC) [Entitic mass] 29.8 pg 26.0 - 34.0 pg [facility] MCHC (RBC) [Mass/Vol] 31.9 % 30.5 - 36.0 % [facility] MCV (RBC) [Entitic vol] 93.4 fL 77.0 - 99.0 fL [facility] Monocytes (Bld) [#/Vol] 0.7 10*3/uL 0.0 - 0.9 10*3/uL [facility] Monocytes/100 WBC (Bld) 10.7 % 5.0 - 13.0 % [facility] Neutrophils (Bld) [#/Vol] 3.9 10*3/uL 1.8 - 7.5 10*3/uL [facility] Neutrophils/100 WBC (Bld) 56.2 % 38.0 - 82.0 % [facility] Nucleated RBC/100 WBC (Bld) [Ratio] 0.0 % [facility] Platelet mean volume (Bld) [Entitic vol] 10.2 fL 9.0 - 12.7 fL [facility] Platelets (Bld) [#/Vol] 235 10*3/uL 140 - 440 10*3/uL [facility] RBC (Bld) [#/Vol] 3.02 10*6/uL Low 3.80 - 5.2 0 10*6/uL [facility] WBC (Bld) [#/Vol] 6.9 10*3/uL 3.6 - 10.7 10*3/uL [facility] CBC WITH AUTO DIFFERENTIALon 04-09-2024 Basophils (Bld) [#/Vol] 0.0 10*3/uL Normal 0.0-0.2 [facility] Comment on above: Performed By: #### L [id number] ####Pre Press Operator: VELMA VALADEZ ([phone])[facility] ([facility])[address] [place] [address] Basophils/100 WBC (Bld) 0.6 % Normal 0.0-2.0 [facility] Comment on above: Performed By: #### L [id number] ####Pre Press Operator: VELMA VALADEZ ([id number])[facility] ([facility])[address] [place] [address] Eosinophils (Bld) [#/Vol] 0.1 10*3/uL Normal 0.0-0.5 [facility] Comment on above: Performed By: #### L [id number] ####Pre Press Operator: VELMA VALADEZ ([id number])[facility] ([facility])[address] [place] [address] Eosinophils/100 WBC (Bld) 0.9 % Normal 0.0-6.0 [facility] Comment on above: Performed By: #### L [id number] ####Pre Press Operator: VELMA VALADEZ ([phone])[facility])[address] [place] [address] Erythrocyte distribution width (RBC) [Ratio] 14.8 % Normal 11.5-15.0 [facility] Comment on above: Performed By: #### L [id number] ####Pre Press Operator: VELMA [id number])[facility])[address] [place] [address] Hematocrit (Bld) [Volume fraction] 28.2 % Low 35.0-47.0 [facility] Comment on above: Performed By: #### L [id number] ####Pre Press Operator: VELMA VALADEZ ([phone])[facility])[address] [place] [address] Hemoglobin (Bld) [Mass/Vol] 9.0 g/dL Low 11.7-16.0 [facility] Comment on above: Performed By: #### L [id number] ####Pre Press Operator: VELMA VALADEZ ([phone])[facility])[address] [place] [address] IMMATURE GRANS % 0.4 % Normal 0.0-2.0 [facility] Comment on above: Performed By: #### L [id number] ####Pre Press Operator: VELMA VALADEZ ([phone])[facility])[address] [place] [address] IMMATURE GRANS ABSOLUTE 0.0 10*3/uL Normal <0.1 [facility] Comment on above: Performed By: #### L [id number] ####Pre Press Operator: VELMA VALADEZ ([phone])[facility])[address] [place] [address] Lymphocytes (Bld) [#/Vol] 2.2 10*3/uL Normal 1.0-4.3 [facility] Comment on above: Performed By: #### L [id number] ####Pre Press Operator: VELMA VALADEZ ([phone])[facility])[address] [place] [address] Lymphocytes/100 WBC (Bld) 31.2 % Normal 15.0-45.0 [facility] Comment on above: Performed By: #### L [id number] ####Pre Press Operator: VELMA VALADEZ ([phone])[facility])[address] [place] [address] MCH (RBC) [Entitic mass] 29.8 pg Normal 26.0-34.0 [facility] Comment on above: Performed By: #### L [id number] ####Pre Press Operator: VELMA VALADEZ ([id number])[facility])[address] [place] [address] MCHC 31.9 % Normal 30.5-36.0 [facility] Comment on above: Performed By: #### L [id number] ####Pre Press Operator: VELMA VALADEZ ([id number])[facility])[address] [place] [address] MCV (RBC) [Entitic vol] 93.4 fL Normal 77.0-99.0 [facility] Comment on above: Performed By: #### L [id number] ####Pre Press Operator: VELMA VALADEZ ([phone])[facility])[address] [place] [address] Monocytes (Bld) [#/Vol] 0.7 10*3/uL Normal 0.0-0.9 [facility] Comment on above: Performed By: #### L [id number] ####Pre Press Operator: VELMA VALADEZ ([phone])[facility])[address] [place] [address] Monocytes/100 WBC (Bld) 10.7 % Normal 5.0-13.0 [facility] Comment on above: Performed By: #### L [id number] ####Pre Press Operator: VELMA VALADEZ ([id number])[facility])[address] [place] [address] NEUTROPHILS ABSOLUTE 3.9 10*3/uL Normal 1.8-7.5 [facility] Comment on above: Performed By: #### L [id number] ####Pre Press Operator: VELMA VALADEZ ([phone])[facility])[address] [place] [address] Neutrophils/100 WBC (Bld) 56.2 % Normal 38.0-82.0 [facility] Comment on above: Performed By: #### L [id number] ####Pre Press Operator: VELMA VALADEZ ([id number])[facility] ([facility])[address] [place] [address] NRBC 0.0 /100 WBCs Normal 0.0-2.0 [facility] Comment on above: Performed By: #### L [id number] ####Pre Press Operator: VELMA VALADEZ ([id number])[facility])[address] [place] [address] Platelet mean volume (Bld) [Entitic vol] 10.2 fL Normal 9.0-12.7 [facility] Comment on above: Performed By: #### L [id number] ####Pre Press Operator: VELMA VALADEZ ([id number])[facility] ([facility])[address] [place] [address] Platelets (Bld) [#/Vol] 235 10*3/uL Normal 140-440 [facility] Comment on above: Performed By: #### L [id number] ####Pre Press Operator: VELMA VALADEZ ([id number])[facility] ([facility])[address] [place] [address] RBC (Bld) [#/Vol] 3.02 10*6/uL Low 3.80-5.20 [facility] Comment on above: Performed By: #### L [id number] ####Pre Press Operator: VELMA VALADEZ ([id number])[facility] ([facility])[address] [place] [address] WBC (Bld) [#/Vol] 6.9 10*3/uL Normal 3.6-10.7 [facility] Comment on above: Performed By: #### L [id number] ####Pre Press Operator: VELMA VALADEZ ([id number])[facility])[address] [place] [address] Laboratory - Coagulationon 0 04-09-2024 PT Coag (Bld) [Time] 13.8 s High 9.0 - 1 2.0 s [facility] Panel Informationon 09-23 -2024 Interpretation and review of laboratory results Abnormal [facility] PROTHROMBIN TIMEon INR Coag (PPP) [Relative time] 1.2 {INR} High 0.9-1.1 [facility] Comment on above: Result Comment: Timothy mmended [...] Myocardial Infarction Performed By: #### L [id number], [id number] ####Pre Press Operator: VELMA VALADEZ ([id number])[facility] ([facility])[address] [place] [address] PT Coag (PPP) [Time] 13.8 s High 9.0-12.0 [facility] Comment on above: Performed By: #### [place] AB320, [id number] ####Pre Press Operator: VELMA VALADEZ ([id number])[facility] ([facility])[address] [place] [address] PT Coag (Bld) [Time]on 04-09 INR Coag (PPP) [Relative time] 1.2 {INR} High 0.9 - 1.1 [facility] Comment on above: Recommended Anticoag ulant [...] Infarction Progress Noteon 04-09-2024 Progress Note Normal [facility] Progress Note Normal [facility] XR CHEST 1 VIEWon 04-09-2024 XR CHEST 1 VIEW Normal [facility] XR Chest Single viewon 04-09 Mild cardiomegaly and pulmonary venous congestion with small pleural effusions. Report Dictated on Electronically Signed By: Di Leggett MD Electronically Signed Date/Time: 04/09/2024 1:42 PM EDT [facility] Patient Name: MEL CARVER RD [...] the left shoulder. No acute osseous findings. [facility] Di Leggett M D - 04/09/2024 [...] Electronically Signed Date/Time: 04/09/2024 1:42 PM EDT [facility] Radiology Study observation (narrative) [facility] XR Chest Single viewOrdered By: Di Leggett on 04-09-2024 [facility] Work Phone: aPTT Coag (Bld) [Time]on aPTT Coag (PPP) [Time] 58.9 s High 20.0 - 30.5 s [facility] Interpretation and review of laboratory results Abnormal [facility] NOTE: The therapeuti c time for Heparin anticoagulation, based on Xa activity inhibition, is an APTT of 46-80 seconds. [facility] aPTT Coag (PPP) [Time] 64.6 s High 20.0 - 30.5 s [facility] Interpretation and review of laboratory results Abnormal [facility] NOTE: The therapeuti c time for Heparin anticoagulation, based on Xa activity inhibition, is an APTT of 46-80 seconds. [facility] aPTT Coag (PPP) [Time] 82.3 s High 20.0 - 30.5 s [facility] NOTE: The therapeuti c time for Heparin anticoagulation, based on Xa activity inhibition, is an APTT of 46-80 seconds. [facility] APTTon 04-08-2024 aPTT Coag (Bld) [Time] 51.5 s High 20.0-30.5 [facility] Comment on above: Result Comment: BUBBA Garcia COMMENTS:NOTE: The therapeutic time for Heparin anticoagulation, based on Xa activity inhibition, is an APTT of 46-80 seconds. Performed By: #### L AB325 ####Pre Press Operator: VELMA VALADEZ ([id number])[facility] aPTT Coag (Bld) [Time] 59.8 s High 20.0-30.5 [facility] Comment on above: Result Comment: BUBBA Garcia COMMENTS:NOTE: The therapeutic time for Heparin anticoagulation, based on Xa activity inhibition, is an APTT of 46-80 seconds. Performed By: #### L AB325 ####Pre Press Operator: VELMA VALADEZ ([phone])[facility] ([facility])[address] [place] [address] aPTT Coag (Bld) [Time] 41.4 s High 20.0-30.5 [facility] Comment on above: Result Comment: BUBBA Garcia COMMENTS:NOTE: The therapeutic time for Heparin anticoagulation, based on Xa activity inhibition, is an APTT of 46-80 seconds. Performed By: #### L AB325, [id number] ####Pre Press Operator: VELMA VALADEZ ([id number])[facility] ([facility])[address] [place] [address] BASIC METABOLIC PANELon 09-2 Anion gap [Moles/Vol] 5 mmol/L Normal 3-13 [facility] Comment on above: Performed By: #### L AB15 ####Pre Press Operator: VELMA VALADEZ ([id number])[facility] ([facility])[address] [place] [address] Calcium [Mass/Vol] 8.9 mg/dL Normal 8.4-10.4 [facility] Comment on above: Performed By: #### L AB15 ####Pre Press Operator: VELMA VALADEZ ([phone])[facility] [place] [address] Chloride [Moles/Vol] 113 mmol/L High 98-107 [facility] Comment on above: Performed By: #### L AB15 ####Pre Press Operator: VELMA VALADEZ ([phone])[facility] ([facility])[address] [place] [address] CO2 [Moles/Vol] 17 mmol/L Low 22-30 [facility] Comment on above: Performed By: #### L AB15 ####Pre Press Operator: VELMA VALADEZ ([phone])[facility] ([facility])[address] [place] [address] Creatinine [Mass/Vol] 0.98 mg/dL Normal 0.52-1.04 [facility] Comment on above: Performed By: #### L AB15 ####Pre Press Operator: VELMA VALADEZ ([id number])[facility] ([facility])[address] [place] [address] GLOMERULAR FILTRATION RATE ML/MIN/1.73 SQ M.PREDICTED 57.0 mL/min/1.73m*2 Low >60.0 [facility] Comment on above: Result Comment: Calc ulation based on the Chronic Kidney Disease Epidemiology Collaboration (CKD-EPI) equation refit without adjustment for race Performed By: #### L AB15 ####Pre Press Operator: VELMA VALADEZ ([id number])[facility] ([facility])[address] [place] [address] Glucose [Mass/Vol] 116 mg/dL High 70-100 [facility] Comment on above: Performed By: #### L AB15 ####Pre Press Operator: VELMA VALADEZ ([phone])[facility])[address] [place] [address] Potassium [Moles/Vol] 4.5 mmol/L Normal 3.5-5.1 [facility] Comment on above: Performed By: #### L AB15 ####Pre Press Operator: VELMA VALADEZ ([phone])[facility] ([facility])[address] [place] [address] Sodium [Moles/Vol] 135 mmol/L Normal 135-145 [facility] Comment on above: Performed By: #### L AB15 ####Pre Press Operator: VELMA VALADEZ ([phone])[facility])[address] [place] [address] Urea nitrogen [Mass/Vol] 18 mg/dL High 7-17 [facility] Comment on above: Performed By: #### L AB15 ####Pre Press Operator: VELMA VALADEZ ([phone])[facility])[address] [place] [address] Basic metabolic 1998 panelon 04-08-2024 Anion gap [Moles/Vol] 5 mmol/L 3 - 13 mmol/L [facility] Calcium [Mass/Vol] 8.9 mg/dL 8.4 - 10. 4 mg/dL [facility] Chloride [Moles/Vol] 113 mmol/L High 98 - 10 7 mmol/L [facility] CO2 [Moles/Vol] 17 mmol/L Low 22 - 30 mmol/L [facility] Creatinine [Mass/Vol] 0.98 mg/dL 0.52 - 1.04 mg/dL [facility] GFR/1.73 sq M.predicted (S/P/Bld) [Vol rate/Area] 57.0 mL/min Low - PINF [facility] Comment on above: Calculation based on the Chronic Kidney Disease Epidemiology Collaboration (CKD-EPI) equation refit without adjustment for race Glucose [Mass/Vol] 116 mg/dL High 70 - 100 mg/dL [facility] Interpretation and review of laboratory results Abnormal [facility] Potassium [Moles/Vol] 4.5 mmol/L 3.5 - 5.1 mmol/L [facility] Sodium [Moles/Vol] 135 mmol/L 135 - 145 mmol/L [facility] Urea nitrogen [Mass/Vol] 18 mg/dL High 7 - 17 mg/dL [facility] CBC W Auto Differential pane l (Bld)on 04-08-2024 Basophils (Bld) [#/Vol] 0.0 10*3/uL 0.0 - 0.2 10*3/uL [facility] Basophils/100 WBC (Bld) 0.5 % 0.0 - 2.0 % [facility] Eosinophils (Bld) [#/Vol] 0.1 10*3/uL 0.0 - 0.5 10*3/uL [facility] Eosinophils/100 WBC (Bld) 0.9 % 0.0 - 6.0 % [facility] Erythrocyte distribution width (RBC) [Ratio] 14.8 % 11.5 - 15.0 % [facility] Hematocrit (Bld) [Volume fraction] 27.0 % Low 35.0 - 47.0 % [facility] Hemoglobin (Bld) [Mass/Vol] 8.6 g/dL Low 11.7 - 16.0 g/dL [facility] Immature granulocytes (Bld) [#/Vol] 0.0 10*3/uL NINF - 0.1 10*3/uL [facility] Immature granulocytes/100 WBC (Bld) 0.4 % 0.0 - 2.0 % [facility] Interpretation and review of laboratory results Abnormal [facility] Lymphocytes (Bld) [#/Vol] 1.7 10*3/uL 1.0 - 4.3 10*3/uL [facility] Lymphocytes/100 WBC (Bld) 23.3 % 15.0 - 45.0 % [facility] MCH (RBC) [Entitic mass] 30.2 pg 26.0 - 34.0 pg [facility] MCHC (RBC) [Mass/Vol] 31.9 % 30.5 - 36.0 % [facility] MCV (RBC) [Entitic vol] 94.7 fL 77.0 - 99.0 fL [facility] Monocytes (Bld) [#/Vol] 0.8 10*3/uL 0.0 - 0.9 10*3/uL [facility] Monocytes/100 WBC (Bld) 10.2 % 5.0 - 13.0 % [facility] Neutrophils (Bld) [#/Vol] 4.8 10*3/uL 1.8 - 7.5 10*3/uL [facility] Neutrophils/100 WBC (Bld) 64.7 % 38.0 - 82.0 % [facility] Nucleated RBC/100 WBC (Bld) [Ratio] 0.0 % [facility] Platelet mean volume (Bld) [Entitic vol] 10.1 fL 9.0 - 12.7 fL [facility] Platelets (Bld) [#/Vol] 223 10*3/uL 140 - 440 10*3/uL [facility] RBC (Bld) [#/Vol] 2.85 10*6/uL Low 3.80 - 5.2 0 10*6/uL [facility] WBC (Bld) [#/Vol] 7.5 10*3/uL 3.6 - 10.7 10*3/uL [facility] CBC WITH AUTO DIFFERENTIALon 04-08-2024 Basophils (Bld) [#/Vol] 0.0 10*3/uL Normal 0.0-0.2 [facility] Comment on above: Performed By: #### L [id number] ####Pre Press Operator: VELMA VALADEZ ([id number])[address] Basophils/100 WBC (Bld) 0.5 % Normal 0.0-2.0 S [facility] Comment on above: Performed By: #### L [id number] ####Pre Press Operator: VELMA VALADEZ ([phone])[facility])[address] [place] [address] Eosinophils (Bld) [#/Vol] 0.1 10*3/uL Normal 0.0-0.5 [facility] Comment on above: Performed By: #### L [id number] ####Pre Press Operator: VELMA VALADEZ ([phone])[facility])[address] [place] [address] Eosinophils/100 WBC (Bld) 0.9 % Normal 0.0-6.0 [facility] Comment on above: Performed By: #### L [id number] ####Pre Press Operator: VELMA VALADEZ ([phone])[address] Erythrocyte distribution width (RBC) [Ratio] 14.8 % Normal 11.5-15.0 [facility] Comment on above: Performed By: #### L [id number] ####Pre Press Operator: VELMA VALADEZ ([phone])[facility])[address] [place] [address] Hematocrit (Bld) [Volume fraction] 27.0 % Low 35.0-47.0 [facility] Comment on above: Performed By: #### L [id number] ####Pre Press Operator: VELMA VALADEZ ([phone])[address] Hemoglobin (Bld) [Mass/Vol] 8.6 g/dL Low 11.7-16.0 [facility] Comment on above: Performed By: #### L [id number] ####Pre Press Operator: VELMA VALADEZ ([phone])[facility])[address] [place] [address] IMMATURE GRANS % 0.4 % Normal 0.0-2.0 [facility] Comment on above: Performed By: #### L [id number] ####Pre Press Operator: VELMA VALADEZ ([phone])[address] IMMATURE GRANS ABSOLUTE 0.0 10*3/uL Normal <0.1 [facility] Comment on above: Performed By: #### L [id number] ####Pre Press Operator: VELMA VALADEZ ([phone])[facility])[address] [place] [address] Lymphocytes (Bld) [#/Vol] 1.7 10*3/uL Normal 1.0-4.3 [facility] Comment on above: Performed By: #### L [id number] ####Pre Press Operator: VELMA VALADEZ ([phone])[facility])[address] [place] [address] Lymphocytes/100 WBC (Bld) 23.3 % Normal 15.0-45.0 [facility] Comment on above: Performed By: #### L [id number] ####Pre Press Operator: VELMA VALADEZ ([phone])[facility])[address] [place] [address] MCH (RBC) [Entitic mass] 30.2 pg Normal 26.0-34.0 [facility] Comment on above: Performed By: #### L [id number] ####Pre Press Operator: VELMA VALADEZ ([phone])[facility])[address] [place] [address] MCHC 31.9 % Normal 30.5-36.0 [facility] Comment on above: Performed By: #### L [id number] ####Pre Press Operator: VELMA VALADEZ ([phone])[facility])[address] [place] [address] MCV (RBC) [Entitic vol] 94.7 fL Normal 77.0-99.0 [facility] Comment on above: Performed By: #### L [id number] ####Pre Press Operator: VELMA VALADEZ ([phone])[facility])[address] [place] [address] Monocytes (Bld) [#/Vol] 0.8 10*3/uL Normal 0.0-0.9 [facility] Comment on above: Performed By: #### L [id number] ####Pre Press Operator: VELMA VALADEZ ([id number])[facility] ([facility])[address] [place] [address] Monocytes/100 WBC (Bld) 10.2 % Normal 5.0-13.0 [facility] Comment on above: Performed By: #### L [id number] ####Pre Press Operator: VELMA VALADEZ ([phone])[facility] ([facility])[address] [place] [address] NEUTROPHILS ABSOLUTE 4.8 10*3/uL Normal 1.8-7.5 [facility] Comment on above: Performed By: #### L [id number] ####Pre Press Operator: VELMA VALADEZ ([phone])[facility] ([facility])[address] [place] [address] Neutrophils/100 WBC (Bld) 64.7 % Normal 38.0-82.0 [facility] Comment on above: Performed By: #### L [id number] ####Pre Press Operator: VELMA VALADEZ ([phone])[facility] ([facility])[address] [place] [address] NRBC 0.0 /100 WBCs Normal 0.0-2.0 [facility] Comment on above: Performed By: #### L [id number] ####Pre Press Operator: VELMA VALADEZ ([phone])[facility] ([facility])[address] [place] [address] Platelet mean volume (Bld) [Entitic vol] 10.1 fL Normal 9.0-12.7 [facility] Comment on above: Performed By: #### L [id number] ####Pre Press Operator: VELMA VALADEZ ([id number])[facility] ([facility])[address] [place] [address] Platelets (Bld) [#/Vol] 223 10*3/uL Normal 140-440 [facility] Comment on above: Performed By: #### L [id number] ####Pre Press Operator: VELMA [id number])[facility] ([facility])[address] [place] [address] RBC (Bld) [#/Vol] 2.85 10*6/uL Low 3.80-5.20 [facility] Comment on above: Performed By: #### L [id number] ####Pre Press Operator: VELMA VALADEZ ([phone])[facility])[address] [place] [address] WBC (Bld) [#/Vol] 7.5 10*3/uL Normal 3.6-10.7 [facility] Comment on above: Performed By: #### L [id number] ####Pre Press Operator: VELMA VALADEZ ([phone])[facility])[address] [place] [address] IDNon 04-08-2024 IDN Progressing Normal [facility] - Coagulationon 0 04-08-2024 PT Coag (Bld) [Time] 11.2 s 9.0 - 1 2.0 s [facility] No Panel Informationon 04-08 [facility] PROTHROMBIN TIMEon INR Coag (PPP) [Relative time] 1.0 {INR} Normal 0.9-1.1 [facility] Comment on above: Result Comment: Timothy mmended [...] Myocardial Infarction Performed By: #### L AB325, [id number] ####Pre Press Operator: VELMA VALADEZ ([phone])[facility] ([facility])[address] [place] [address] PT Coag (PPP) [Time] 11.2 s Normal 9.0-12.0 [facility] Comment on above: Performed By: #### L AB325, [id number] ####Pre Press Operator: VELMA VALADEZ ([phone])[facility] ([facility] PT Coag (Bld) [Time]on 04-08 INR Coag (PPP) [Relative time] 1.0 {INR} 0.9 - 1.1 [facility] Comment on above: Recommended Anticoag ulant [...] Interpretation and review of laboratory results Normal [facility] Progress Noteon 04-08-2024 Progress Note Normal [facility] Normal [facility] aPTT Coag (Bld) [Time]on aPTT Coag (PPP) [Time] 51.5 s High 20.0 - 30.5 s [facility] Interpretation and review of laboratory results Abnormal [facility] NOTE: The therapeuti c time for Heparin anticoagulation, based on Xa activity inhibition, is an APTT of 46-80 seconds. [facility] aPTT Coag (PPP) [Time] 59.8 s High 20.0 - 30.5 s [facility] Interpretation and review of laboratory results Abnormal [facility] NOTE: The therapeuti c time for Heparin anticoagulation, based on Xa activity inhibition, is an APTT of 46-80 seconds. [facility] aPTT Coag (PPP) [Time] 41.4 s High 20.0 - 30.5 s [facility] Interpretation and review of laboratory results Abnormal [facility] NOTE: The therapeuti c time for Heparin anticoagulation, based on Xa activity inhibition, is an APTT of 46-80 seconds. [facility] APTTon 04-07-2024 aPTT Coag (Bld) [Time] 54.7 s High 20.0-30.5 [facility] Comment on above: Result Comment: ORDE R COMMENTS:NOTE: The therapeutic time for Heparin anticoagulation, based on Xa activity inhibition, is an APTT of 46-80 seconds. Performed By: #### L AB325 ####Pre Press Operator: VELMA VALADEZ ([phone])[facility] ([facility])[address] [place] [address] aPTT Coag (Bld) [Time] 77.7 s High 20.0-30.5 [facility] Comment on above: Result Comment: BUBBA R COMMENTS:NOTE: The therapeutic time for Heparin anticoagulation, based on Xa activity inhibition, is an APTT of 46-80 seconds. Performed By: #### L AB325, [id number] ####Pre Press Operator: VELMA VALADEZ ([phone])[facility] ([facility])[address] [place] [address] BASIC METABOLIC PANELon 09-2 Anion gap [Moles/Vol] 4 mmol/L Normal 3-13 [facility] Comment on above: Performed By: #### L AB15 ####Pre Press Operator: VELMA VALADEZ ([id number])[facility] ([facility])[address] [place] [address] Calcium [Mass/Vol] 8.8 mg/dL Normal 8.4-10.4 [facility] Comment on above: Performed By: #### L AB15 ####Pre Press Operator: VELMA VALADEZ ([id number])[facility] ([facility])[address] [place] [address] Chloride [Moles/Vol] 115 mmol/L High 98-107 [facility] Comment on above: Performed By: #### L AB15 ####Pre Press Operator: VELMA VALADEZ ([id number])[facility] ([facility])[address] [place] [address] [place] CO2 [Moles/Vol] 17 mmol/L Low 22-30 [facility] Comment on above: Performed By: #### L AB15 ####Pre Press Operator: VELMA VALADEZ ([phone])[facility] ([facility])[address] [place] [address] Creatinine [Mass/Vol] 0.90 mg/dL Normal 0.52-1.04 [facility] Comment on above: Performed By: #### L AB15 ####Pre Press Operator: VELMA VALADEZ ([phone])[facility])[address] [place] [address] GLOMERULAR FILTRATION RATE ML/MIN/1.73 SQ M.PREDICTED 63.2 mL/min/1.73m*2 Normal >60.0 [facility] Comment on above: Result Comment: Calc ulation based on the Chronic Kidney Disease Epidemiology Collaboration (CKD-EPI) equation refit without adjustment for race Performed By: #### L AB15 ####Pre Press Operator: VELMA VALADEZ ([phone])[facility])[address] [place] [address] Glucose [Mass/Vol] 139 mg/dL High 70-100 [facility] Comment on above: Performed By: #### L AB15 ####Pre Press Operator: VELMA VALADEZ ([id number])[facility] ([facility])[address] [place] [address] Potassium [Moles/Vol] 4.7 mmol/L Normal 3.5-5.1 [facility] Comment on above: Performed By: #### L AB15 ####Pre Press Operator: VELMA VALADEZ ([id number])[facility] ([facility])[address] [place] [address] Sodium [Moles/Vol] 136 mmol/L Normal 135-145 [facility] Comment on above: Performed By: #### L AB15 ####Pre Press Operator: VELMA VALADEZ ([id number])[facility] ([facility])[address] [place] [address] [place] Urea nitrogen [Mass/Vol] 16 mg/dL Normal 7-17 [facility] Comment on above: Performed By: #### L AB15 ####Pre Press Operator: VELMA VALADEZ ([phone])[facility] ([facility])[address] [place] [address] Basic metabolic 1998 panelon 04-07-2024 Anion gap [Moles/Vol] 4 mmol/L 3 - 13 mmol/L [facility] Calcium [Mass/Vol] 8.8 mg/dL 8.4 - 10. 4 mg/dL [facility] Chloride [Moles/Vol] 115 mmol/L High 98 - 10 7 mmol/L [facility] CO2 [Moles/Vol] 17 mmol/L Low 22 - 30 mmol/L [facility] Creatinine [Mass/Vol] 0.90 mg/dL 0.52 - 1.04 mg/dL [facility] GFR/1.73 sq M.predicted (S/P/Bld) [Vol rate/Area] 63.2 mL/min - PINF [facility] Comment on above: Calculation based on the Chronic Kidney Disease Epidemiology Collaboration (CKD-EPI) equation refit without adjustment for race Glucose [Mass/Vol] 139 mg/dL High 70 - 100 mg/dL [facility] Interpretation and review of laboratory results Abnormal [facility] Potassium [Moles/Vol] 4.7 mmol/L 3.5 - 5.1 mmol/L [facility] Sodium [Moles/Vol] 136 mmol/L 135 - 145 mmol/L [facility] Urea nitrogen [Mass/Vol] 16 mg/dL 7 - 17 mg/dL [facility] CBC W Auto Differential pane l (Bld)on 04-07-2024 Basophils (Bld) [#/Vol] 0.0 10*3/uL 0.0 - 0.2 10*3/uL [facility] Basophils/100 WBC (Bld) 0.2 % 0.0 - 2.0 % [facility] Eosinophils (Bld) [#/Vol] 0.0 10*3/uL 0.0 - 0.5 10*3/uL [facility] Eosinophils/100 WBC (Bld) 0.0 % 0.0 - 6.0 % [facility] Erythrocyte distribution width (RBC) [Ratio] 14.3 % 11.5 - 15.0 % [facility] Hematocrit (Bld) [Volume fraction] 27.0 % Low 35.0 - 47.0 % [facility] Hemoglobin (Bld) [Mass/Vol] 8.6 g/dL Low 11.7 - 16.0 g/dL [facility] Immature granulocytes (Bld) [#/Vol] 0.0 10*3/uL NINF - 0.1 10*3/uL [facility] Immature granulocytes/100 WBC (Bld) 0.5 % 0.0 - 2.0 % [facility] Interpretation and review of laboratory results Abnormal [facility] Lymphocytes (Bld) [#/Vol] 0.8 10*3/uL Low 1.0 - 4.3 10*3/uL [facility] Lymphocytes/100 WBC (Bld) 19.2 % 15.0 - 45.0 % [facility] MCH (RBC) [Entitic mass] 30.1 pg 26.0 - 34.0 pg [facility] MCHC (RBC) [Mass/Vol] 31.9 % 30.5 - 36.0 % [facility] MCV (RBC) [Entitic vol] 94.4 fL 77.0 - 99.0 fL [facility] Monocytes (Bld) [#/Vol] 0.3 10*3/uL 0.0 - 0.9 10*3/uL [facility] Monocytes/100 WBC (Bld) 7.5 % 5.0 - 13.0 % [facility] Neutrophils (Bld) [#/Vol] 2.9 10*3/uL 1.8 - 7.5 10*3/uL [facility] Neutrophils/100 WBC (Bld) 72.6 % 38.0 - 82.0 % [facility] Nucleated RBC/100 WBC (Bld) [Ratio] 0.0 % [facility] Platelet mean volume (Bld) [Entitic vol] 10.5 fL 9.0 - 12.7 fL [facility] Platelets (Bld) [#/Vol] 202 10*3/uL 140 - 440 10*3/uL [facility] RBC (Bld) [#/Vol] 2.86 10*6/uL Low 3.80 - 5.2 0 10*6/uL [facility] WBC (Bld) [#/Vol] 4.0 10*3/uL 3.6 - 10.7 10*3/uL [facility] CBC WITH AUTO DIFFERENTIALon 04-07-2024 Basophils (Bld) [#/Vol] 0.0 10*3/uL Normal 0.0-0.2 [facility] [facility] Comment on above: Performed By: #### L [id number] ####Pre Press Operator: VELMA VALADEZ ([phone])[facility])[address] [place] [address] Basophils/100 WBC (Bld) 0.2 % Normal 0.0-2.0 [facility] Comment on above: Performed By: #### L [id number] ####Pre Press Operator: VELMA VALADEZ ([phone])[facility])[address] [place] [address] Eosinophils (Bld) [#/Vol] 0.0 10*3/uL Normal 0.0-0.5 [facility] Comment on above: Performed By: #### L [id number] ####Pre Press Operator: VELMA VALADEZ ([phone])[facility])[address] [place] [address] Eosinophils/100 WBC (Bld) 0.0 % Normal 0.0-6.0 [facility] Comment on above: Performed By: #### L [id number] ####Pre Press Operator: VELMA VALADEZ ([id number])[facility])[address] [place] [address] Erythrocyte distribution width (RBC) [Ratio] 14.3 % Normal 11.5-15.0 [facility] Comment on above: Performed By: #### L [id number] ####Pre Press Operator: VELMA VALADEZ ([phone])[facility])[address] [place] [address] Hematocrit (Bld) [Volume fraction] 27.0 % Low 35.0-47.0 [facility] Comment on above: Performed By: #### L [id number] ####Pre Press Operator: VELMA VALADEZ ([phone])[facility])[address] [place] [address] Hemoglobin (Bld) [Mass/Vol] 8.6 g/dL Low 11.7-16.0 [facility] Comment on above: Performed By: #### L [id number] ####Pre Press Operator: VELMA VALADEZ ([phone])[facility])[address] [place] [address] IMMATURE GRANS % 0.5 % Normal 0.0-2.0 [facility] Comment on above: Performed By: #### L [id number] ####Pre Press Operator: VELMA VALADEZ ([phone])[facility])[address] [place] [address] IMMATURE GRANS ABSOLUTE 0.0 10*3/uL Normal <0.1 [facility] Comment on above: Performed By: #### L [id number] ####Pre Press Operator: VELMA VALADEZ ([phone])[facility])[address] [place] [address] Lymphocytes (Bld) [#/Vol] 0.8 10*3/uL Low 1.0-4.3 [facility] Comment on above: Performed By: #### L [id number] ####Pre Press Operator: VELMA VALADEZ ([phone])[facility])[address] [place] [address] Lymphocytes/100 WBC (Bld) 19.2 % Normal 15.0-45.0 [facility] Comment on above: Performed By: #### L [id number] ####Pre Press Operator: VELMA VALADEZ ([phone])[facility])[address] [place] [address] MCH (RBC) [Entitic mass] 30.1 pg Normal 26.0-34.0 [facility] Comment on above: Performed By: #### L [id number] ####Pre Press Operator: VELMA VALADEZ ([phone])[facility])[address] [place] [address] MCHC 31.9 % Normal 30.5-36.0 [facility] Comment on above: Performed By: #### L [id number] ####Pre Press Operator: VELMA VALADEZ ([phone])[facility])[address] [place] [address] MCV (RBC) [Entitic vol] 94.4 fL Normal 77.0-99.0 [facility] Comment on above: Performed By: #### L [id number] ####Pre Press Operator: VELMA VALADEZ ([id number])[facility] ([facility])[address] [place] [address] Monocytes (Bld) [#/Vol] 0.3 10*3/uL Normal 0.0-0.9 [facility] Comment on above: Performed By: #### L [id number] ####Pre Press Operator: VELMA VALADEZ ([phone])[facility] ([facility])[address] [place] [address] Monocytes/100 WBC (Bld) 7.5 % Normal 5.0-13.0 [facility] Comment on above: Performed By: #### L [id number] ####Pre Press Operator: VELMA VALADEZ ([id number])[facility] ([facility])[address] [place] [address] NEUTROPHILS ABSOLUTE 2.9 10*3/uL Normal 1.8-7.5 [facility] Comment on above: Performed By: #### L [id number] ####Pre Press Operator: VELMA VALADEZ ([phone])[facility] ([facility])[address] [place] [address] Neutrophils/100 WBC (Bld) 72.6 % Normal 38.0-82.0 [facility] Comment on above: Performed By: #### L [id number] ####Pre Press Operator: VELMA VALADEZ ([phone])[facility] ([facility])[address] [place] [address] NRBC 0.0 /100 WBCs Normal 0.0-2.0 [facility] Comment on above: Performed By: #### L [id number] ####Pre Press Operator: VELMA VALADEZ ([phone])[facility])[address] [place] [address] Platelet mean volume (Bld) [Entitic vol] 10.5 fL Normal 9.0-12.7 [facility] Comment on above: Performed By: #### L [id number] ####Pre Press Operator: VELMA VALADEZ ([phone])[facility] ([facility])[address] [place] [address] Platelets (Bld) [#/Vol] 202 10*3/uL Normal 140-440 [facility] Comment on above: Performed By: #### L [id number] ####Pre Press Operator: VELMA VALADEZ ([id number])[facility])[address] [place] [address] RBC (Bld) [#/Vol] 2.86 10*6/uL Low 3.80-5.20 [facility] Comment on above: Performed By: #### L [id number] ####Pre Press Operator: VELMA VALADEZ ([phone])[facility])[address] [place] [address] WBC (Bld) [#/Vol] 4.0 10*3/uL Normal 3.6-10.7 [facility] Comment on above: Performed By: #### L [id number] ####Pre Press Operator: VELMA VALADEZ ([phone])[facility] ([facility])[address] [place] [address] IDNon 04-07-2024 IDN Normal [facility] Laboratory - Coagulationon 0 04-07-2024 PT Coag (Bld) [Time] 11.1 s 9.0 - 1 2.0 s [facility] No Panel Informationon 04-07 [facility] Nursing Noteon 04-07-2024 Nursing Note NO changes to hepari n infusion at this time. Normal [facility] PROTHROMBIN TIMEon INR Coag (PPP) [Relative time] 1.0 {INR} Normal 0.9-1.1 [facility] Comment on above: Result Comment: Timothy mmended [...] Myocardial Infarction Performed By: #### [place] AB325, [id number] ####Pre Press Operator: VELMA VALADEZ ([phone])[facility] ([facility])[address] [place] [address] PT Coag (PPP) [Time] 11.1 s Normal 9.0-12.0 [facility] Comment on above: Performed By: #### L AB325, [id number] ####Pre Press Operator: VELMA VALADEZ ([id number])[facility] ([facility])[address] [place] [address] PT Coag (Bld) [Time]on 04-07 INR Coag (PPP) [Relative time] 1.0 {INR} 0.9 - 1.1 [facility] Comment on above: Recommended Anticoag ulant [...] Interpretation and review of laboratory results Normal [facility] Progress Noteon 04-07-2024 Progress Note Normal [facility] Progress Note Normal [facility] Progress Note Normal [facility] aPTT Coag (Bld) [Time]on aPTT Coag (PPP) [Time] 54.7 s High 20.0 - 30.5 s [facility] Interpretation and review of laboratory results Abnormal [facility] NOTE: The therapeuti c time for Heparin anticoagulation, based on Xa activity inhibition, is an APTT of 46-80 seconds. [facility] aPTT Coag (PPP) [Time] 77.7 s High 20.0 - 30.5 s [facility] Interpretation and review of laboratory results Abnormal [facility] NOTE: The therapeuti c time for Heparin anticoagulation, based on Xa activity inhibition, is an APTT of 46-80 seconds. [facility] [id number] 04-06-2024 [id number] Normal [facility] APTTon 04-06-2024 aPTT Coag (Bld) [Time] 43.3 s High 20.0-30.5 [facility] Comment on above: Result Comment: BUBBA Garcia COMMENTS:NOTE: The therapeutic time for Heparin anticoagulation, based on Xa activity inhibition, is an APTT of 46-80 seconds. Performed By: #### L AB325 ####Pre Press Operator: VELMA VALADEZ ([phone])[facility])[address] [place] [address] aPTT Coag (Bld) [Time] 97.6 s High 20.0-30.5 [facility] Comment on above: Result Comment: BUBBA Garcia COMMENTS:NOTE: The therapeutic time for Heparin anticoagulation, based on Xa activity inhibition, is an APTT of 46-80 seconds. Performed By: #### L [id number] ####Pre Press Operator: VELMA [id number])[facility])[address] [place] [address] Anesthesia Noteon 04-06-2024 Anesthesia Note Normal [facility] Anesthesia Note Normal [facility] BASIC METABOLIC PANELon 03-19 Anion gap [Moles/Vol] 4 mmol/L Normal 3-13 [facility] Comment on above: Performed By: #### L AB15 ####Pre Press Operator: VELMA [id number])[facility] ([address] Calcium [Mass/Vol] 8.9 mg/dL Normal 8.4-10.4 [facility] Comment on above: Performed By: #### L AB15 ####Pre Press Operator: VELMA [id number])[address] Chloride [Moles/Vol] 114 mmol/L High 98-107 [facility] Comment on above: Performed By: #### L AB15 ####Pre Press Operator: VELMA [id number])[facility])[address] [place] [address] CO2 [Moles/Vol] 18 mmol/L Low 22-30 [facility] Comment on above: Performed By: #### L AB15 ####Pre Press Operator: VELMA VALADEZ ([phone])[facility] ([facility])[address] [place] [address] Creatinine [Mass/Vol] 0.96 mg/dL Normal 0.52-1.04 [facility] Comment on above: Performed By: #### L AB15 ####Pre Press Operator: VELMA VALADEZ ([id number])[facility] ([facility])[address] [place] [address] GLOMERULAR FILTRATION RATE ML/MIN/1.73 SQ M.PREDICTED 58.5 mL/min/1.73m*2 Low >60.0 [facility] Comment on above: Result Comment: Calc ulation based on the Chronic Kidney Disease Epidemiology Collaboration (CKD-EPI) equation refit without adjustment for race Performed By: #### L AB15 ####Pre Press Operator: VELMA VALADEZ ([phone])[facility] ([facility])[address] [place] [address] Glucose [Mass/Vol] 97 mg/dL Normal 70-100 [facility] Comment on above: Performed By: #### L AB15 ####Pre Press Operator: VELMA VALADEZ ([id number])[facility] ([facility])[address] [place] [address] Potassium [Moles/Vol] 4.6 mmol/L Normal 3.5-5.1 [facility] Comment on above: Performed By: #### L AB15 ####Pre Press Operator: VELMA VALADEZ ([id number])[facility] ([facility])[address] [place] [address] Sodium [Moles/Vol] 135 mmol/L Normal 135-145 [facility] Comment on above: Performed By: #### L AB15 ####Pre Press Operator: VELMA VALADEZ ([id number])[facility] ([facility])[address] [place] [address] [place] Urea nitrogen [Mass/Vol] 17 mg/dL Normal 7-17 [facility] Comment on above: Performed By: #### L AB15 ####Pre Press Operator: VELMA VALADEZ ([id number])[facility] ([facility])[address] [place] [address] BLOOD TYPE AND SCREEN GELon 04-06-2024 ABO GROUPING AB Normal [facility] Comment on above: Performed By: #### L [id number] ####Pre Press Operator: VELMA VALADEZ ([id number])[facility] ([facility])[address] [place] [address] RH TYPE IN BLOOD Positive Normal [facility] Comment on above: Performed By: #### L [id number] ####Pre Press Operator: VELMA VALADEZ ([id number])[facility] ([facility])[address] [place] [address] Basic metabolic 1998 panelon 04-06-2024 Anion gap [Moles/Vol] 4 mmol/L 3 - 13 mmol/L [facility] Calcium [Mass/Vol] 8.9 mg/dL 8.4 - 10. 4 mg/dL [facility] Chloride [Moles/Vol] 114 mmol/L High 98 - 10 7 mmol/L [facility] CO2 [Moles/Vol] 18 mmol/L Low 22 - 30 mmol/L [facility] Creatinine [Mass/Vol] 0.96 mg/dL 0.52 - 1.04 mg/dL [facility] GFR/1.73 sq M.predicted (S/P/Bld) [Vol rate/Area] 58.5 mL/min Low - PINF [facility] Comment on above: Calculation based on the Chronic Kidney Disease Epidemiology Collaboration (CKD-EPI) equation refit without adjustment for race Glucose [Mass/Vol] 97 mg/dL 70 - 100 mg/dL [facility] Interpretation and review of laboratory results Abnormal [facility] Potassium [Moles/Vol] 4.6 mmol/L 3.5 - 5.1 mmol/L [facility] Sodium [Moles/Vol] 135 mmol/L 135 - 145 mmol/L [facility] Urea nitrogen [Mass/Vol] 17 mg/dL 7 - 17 mg/dL [facility] Blood type and Crossmatch pa juan (Bld)on 04-06-2024 ABO group Nom (Bld) AB [facility] Blood group antibody screen GEL Ql Negative [facility] D Ag Ql (RBC) Positive [facility] CARECOORDon 04-06-2024 CARECOORD Normal [facility] CARECOORD Normal [facility] CBC W Auto Differential pane l (Bld)on 04-06-2024 Basophils (Bld) [#/Vol] 0.1 10*3/uL 0.0 - 0.2 10*3/uL [facility] Basophils/100 WBC (Bld) 1.1 % 0.0 - 2.0 % [facility] Eosinophils (Bld) [#/Vol] 0.1 10*3/uL 0.0 - 0.5 10*3/uL [facility] Eosinophils/100 WBC (Bld) 2.7 % 0.0 - 6.0 % [facility] Erythrocyte distribution width (RBC) [Ratio] 14.3 % 11.5 - 15.0 % [facility] Hematocrit (Bld) [Volume fraction] 29.8 % Low 35.0 - 47.0 % [facility] Hemoglobin (Bld) [Mass/Vol] 9.7 g/dL Low 11.7 - 16.0 g/dL [facility] Immature granulocytes (Bld) [#/Vol] 0.0 10*3/uL NINF - 0.1 10*3/uL [facility] Immature granulocytes/100 WBC (Bld) 0.2 % 0.0 - 2.0 % [facility] Interpretation and review of laboratory results Abnormal [facility] Lymphocytes (Bld) [#/Vol] 1.5 10*3/uL 1.0 - 4.3 10*3/uL [facility] Lymphocytes/100 WBC (Bld) 33.0 % 15.0 - 45.0 % [facility] MCH (RBC) [Entitic mass] 30.3 pg 26.0 - 34.0 pg [facility] MCHC (RBC) [Mass/Vol] 32.6 % 30.5 - 36.0 % [facility] MCV (RBC) [Entitic vol] 93.1 fL 77.0 - 99.0 fL [facility] Monocytes (Bld) [#/Vol] 0.5 10*3/uL 0.0 - 0.9 10*3/uL [facility] Monocytes/100 WBC (Bld) 10.5 % 5.0 - 13.0 % [facility] Neutrophils (Bld) [#/Vol] 2.4 10*3/uL 1.8 - 7.5 10*3/uL [facility] Neutrophils/100 WBC (Bld) 52.5 % 38.0 - 82.0 % [facility] Nucleated RBC/100 WBC (Bld) [Ratio] 0.0 % [facility] Platelet mean volume (Bld) [Entitic vol] 10.4 fL 9.0 - 12.7 fL [facility] Platelets (Bld) [#/Vol] 207 10*3/uL 140 - 440 10*3/uL [facility] RBC (Bld) [#/Vol] 3.20 10*6/uL Low 3.80 - 5.2 0 10*6/uL [facility] WBC (Bld) [#/Vol] 4.5 10*3/uL 3.6 - 10.7 10*3/uL [facility] CBC WITH AUTO DIFFERENTIALon 04-06-2024 Basophils (Bld) [#/Vol] 0.1 10*3/uL Normal 0.0-0.2 [facility] Comment on above: Performed By: #### L [id number] ####Pre Press Operator: VELMA VALADEZ ([id number])[facility] ([facility])[address] [place] [address] Basophils/100 WBC (Bld) 1.1 % Normal 0.0-2.0 [facility] Comment on above: Performed By: #### L [id number] ####Pre Press Operator: VELMA VALADEZ ([id number])[facility] ([facility])[address] [place] [address] [place] Eosinophils (Bld) [#/Vol] 0.1 10*3/uL Normal 0.0-0.5 [facility] Comment on above: Performed By: #### L [id number] ####Pre Press Operator: VELMA VALADEZ ([id number])[facility] ([facility])[address] [place] [address] [place] Eosinophils/100 WBC (Bld) 2.7 % Normal 0.0-6.0 [facility] Comment on above: Performed By: #### L [id number] ####Pre Press Operator: VELMA VALADEZ ([phone])[facility])[address] [place] [address] Erythrocyte distribution width (RBC) [Ratio] 14.3 % Normal 11.5-15.0 [facility] Comment on above: Performed By: #### L [id number] ####Pre Press Operator: VELMA VALADEZ ([id number])[facility])[address] [place] [address] Hematocrit (Bld) [Volume fraction] 29.8 % Low 35.0-47.0 [facility] Comment on above: Performed By: #### L [id number] ####Pre Press Operator: VELMA VALADEZ ([id number])[address] Hemoglobin (Bld) [Mass/Vol] 9.7 g/dL Low 11.7-16.0 [facility] Comment on above: Performed By: #### L [id number] ####Pre Press Operator: VELMA VALADEZ ([phone])[facility])[address] [place] [address] IMMATURE GRANS % 0.2 % Normal 0.0-2.0 [facility] Comment on above: Performed By: #### L [id number] ####Pre Press Operator: VELMA VALADEZ ([phone])[facility])[address] [place] [address] IMMATURE GRANS ABSOLUTE 0.0 10*3/uL Normal <0.1 [facility] Comment on above: Performed By: #### L [id number] ####Pre Press Operator: VELMA VALADEZ ([id number])[address] Lymphocytes (Bld) [#/Vol] 1.5 10*3/uL Normal 1.0-4.3 [facility] Comment on above: Performed By: #### L [id number] ####Pre Press Operator: VELMA VALADEZ ([phone])[facility])[address] [place] [address] Lymphocytes/100 WBC (Bld) 33.0 % Normal 15.0-45.0 [facility] Comment on above: Performed By: #### L [id number] ####Pre Press Operator: VELMA VALADEZ ([id number])[facility])[address] [place] [address] MCH (RBC) [Entitic mass] 30.3 pg Normal 26.0-34.0 [facility] Comment on above: Performed By: #### L [id number] ####Pre Press Operator: VELMA VALADEZ ([phone])[facility])[address] [place] [address] MCHC 32.6 % Normal 30.5-36.0 [facility] Comment on above: Performed By: #### L [id number] ####Pre Press Operator: VELMA VALADEZ ([phone])[facility])[address] [place] [address] MCV (RBC) [Entitic vol] 93.1 fL Normal 77.0-99.0 [facility] Comment on above: Performed By: #### L [id number] ####Pre Press Operator: VELMA VALADEZ ([id number])[facility])[address] [place] [address] Monocytes (Bld) [#/Vol] 0.5 10*3/uL Normal 0.0-0.9 [facility] Comment on above: Performed By: #### L [id number] ####Pre Press Operator: VELMA VALADEZ ([id number])[facility])[address] [place] [address] Monocytes/100 WBC (Bld) 10.5 % Normal 5.0-13.0 [facility] Comment on above: Performed By: #### L [id number] ####Pre Press Operator: VELMA VALADEZ ([phone])[facility] [place] [address] NEUTROPHILS ABSOLUTE 2.4 10*3/uL Normal 1.8-7.5 [facility] Comment on above: Performed By: #### L [id number] ####Pre Press Operator: VELMA VALADEZ ([phone])[facility] ([facility])[address] [place] [address] Neutrophils/100 WBC (Bld) 52.5 % Normal 38.0-82.0 [facility] Comment on above: Performed By: #### L [id number] ####Pre Press Operator: VELMA VALADEZ ([phone])[facility] ([facility])[address] [place] [address] NRBC 0.0 /100 WBCs Normal 0.0-2.0 [facility] Comment on above: Performed By: #### L [id number] ####Pre Press Operator: VELMA VALADEZ ([phone])[facility] ([facility])[address] [place] [address] Platelet mean volume (Bld) [Entitic vol] 10.4 fL Normal 9.0-12.7 [facility] Comment on above: Performed By: #### L [id number] ####Pre Press Operator: VELMA VALADEZ ([id number])[facility] ([facility])[address] [place] [address] Platelets (Bld) [#/Vol] 207 10*3/uL Normal 140-440 [facility] Comment on above: Performed By: #### L [id number] ####Pre Press Operator: VELMA VALADEZ ([id number])[facility] ([facility])[address] [place] [address] [place] RBC (Bld) [#/Vol] 3.20 10*6/uL Low 3.80-5.20 [facility] Comment on above: Performed By: #### L [id number] ####Pre Press Operator: VELMA VALADEZ ([phone])[facility] ([facility])[address] [place] [address] [place] WBC (Bld) [#/Vol] 4.5 10*3/uL Normal 3.6-10.7 [facility] Comment on above: Performed By: #### L [id number] ####Pre Press Operator: VELMA VALADEZ ([id number])[facility] ([facility])[address] [place] [address] No Panel Informationon 04-06 There is no interpretation needed for this exam. IMAGING Nursing Noteon 04-06-2024 Nursing Note Patient report rader d to 4N RN and denies any further questions. Patient resting comfortably and no signs of distress. Per resident patient to lay flat for 2 hours and restart heparin GTT at 1215. Transport notified. Normal [facility] Op Noteon 04-06-2024 Op Note Normal [facility] Progress Noteon 04-06-2024 Progress Note Normal [facility] Progress Note Normal [facility] Progress Note Normal [facility] aPTT Coag (Bld) [Time]on aPTT Coag (PPP) [Time] 43.3 s High 20.0 - 30.5 s [facility] Interpretation and review of laboratory results Abnormal [facility] NOTE: The therapeuti c time for Heparin anticoagulation, based on Xa activity inhibition, is an APTT of 46-80 seconds. [facility] aPTT Coag (PPP) [Time] 97.6 s High 20.0 - 30.5 s [facility] Interpretation and review of laboratory results Abnormal [facility] NOTE: The therapeuti c time for Heparin anticoagulation, based on Xa activity inhibition, is an APTT of 46-80 seconds. [facility] 36on 04-05-2024 36 Surgery: Inpatient R LE venous mechanical thrombectomy Date of surgery: 04/06/24 Pre-testing: inpatient CPT codes: 14786 ICD 10: I82.401 Post-op or OV: Adriane to schedule Reps: Selvin Elaine) notified 04/05/24 Normal [facility] APTTon 04-05-2024 aPTT Coag (Bld) [Time] 76.6 s High 20.0-30.5 [facility] Comment on above: Result Comment: BUBBA Garcia COMMENTS:NOTE: The therapeutic time for Heparin anticoagulation, based on Xa activity inhibition, is an APTT of 46-80 seconds. Performed By: #### L AB325, [id number] ####Pre Press Operator: VELMA VALADEZ ([id number])[facility] ([facility])[address] [place] [address] aPTT Coag (Bld) [Time] 69.9 s High 20.0-30.5 [facility] Comment on above: Result Comment: BUBBA Garcia COMMENTS:NOTE: The therapeutic time for Heparin anticoagulation, based on Xa activity inhibition, is an APTT of 46-80 seconds. Performed By: #### L [id number] ####Pre Press Operator: VELMA VALADEZ ([phone])[facility] ([facility])[address] [place] [address] aPTT Coag (Bld) [Time] 88.8 s High 20.0-30.5 [facility] Comment on above: Result Comment: BUBBA Garcia COMMENTS:NOTE: The therapeutic time for Heparin anticoagulation, based on Xa activity inhibition, is an APTT of 46-80 seconds. Performed By: #### L [id number], [id number] ####Pre Press Operator: VELMA VALADEZ ([id number])[facility] ([facility])[address] [place] [address] aPTT Coag (Bld) [Time] 109.7 s High 20.0-30.5 [facility] Comment on above: Result Comment: BUBBA Garcia COMMENTS:NOTE: The therapeutic time for Heparin anticoagulation, based on Xa activity inhibition, is an APTT of 46-80 seconds. Performed By: #### L [id number] ####Pre Press Operator: VELMA [id number])[facility] ([facility])[address] [place] [address] BASIC METABOLIC PANELon 09- Anion gap [Moles/Vol] 3 mmol/L Normal 3-13 [facility] Comment on above: Performed By: #### L AB15 ####Pre Press Operator: VELMA [id number])[facility] ([facility])[address] [place] [address] Calcium [Mass/Vol] 8.7 mg/dL Normal 8.4-10.4 [facility] Comment on above: Performed By: #### L AB15 ####Pre Press Operator: VELMA VALADEZ ([phone])[facility])[address] [place] [address] Chloride [Moles/Vol] 113 mmol/L High 98-107 [facility] Comment on above: Performed By: #### L AB15 ####Pre Press Operator: VELMA VALADEZ ([phone])[facility] [place] [address] CO2 [Moles/Vol] 17 mmol/L Low 22-30 [facility] Comment on above: Performed By: #### L AB15 ####Pre Press Operator: VELMA VALADEZ ([id number])[facility] [place] [address] Creatinine [Mass/Vol] 1.12 mg/dL High 0.52-1.04 [facility] Comment on above: Performed By: #### L AB15 ####Pre Press Operator: VELMA VALADEZ ([phone])[facility] ([facility])[address] [place] [address] GLOMERULAR FILTRATION RATE ML/MIN/1.73 SQ M.PREDICTED 48.6 mL/min/1.73m*2 Low >60.0 [facility] Comment on above: Result Comment: Calc ulation based on the Chronic Kidney Disease Epidemiology Collaboration (CKD-EPI) equation refit without adjustment for race Performed By: #### L AB15 ####Pre Press Operator: VELMA VALADZE ([phone])[facility] ([facility])[address] [place] [address] [place] Glucose [Mass/Vol] 102 mg/dL High 70-100 [facility] Comment on above: Performed By: #### L AB15 ####Pre Press Operator: VELMA VALADEZ ([phone])[facility] ([facility])[address] [place] [address] [place] Potassium [Moles/Vol] 4.8 mmol/L Normal 3.5-5.1 [facility] Comment on above: Performed By: #### L AB15 ####Pre Press Operator: VELMA VALADEZ ([phone])[facility] ([facility])[address] [place] [address] Sodium [Moles/Vol] 133 mmol/L Low 135-145 [facility] Comment on above: Performed By: #### L AB15 ####Pre Press Operator: VELMA VALADEZ ([phone])[facility] ([facility])[address] [place] [address] Urea nitrogen [Mass/Vol] 25 mg/dL High 7-17 [facility] Comment on above: Performed By: #### L AB15 ####Pre Press Operator: VELMA VALADEZ ([phone])[facility] ([facility])[address] [place] [address] Basic metabolic 1998 panelon 04-05-2024 Anion gap [Moles/Vol] 3 mmol/L 3 - 13 mmol/L [facility] Calcium [Mass/Vol] 8.7 mg/dL 8.4 - 10. 4 mg/dL [facility] Chloride [Moles/Vol] 113 mmol/L High 98 - 10 7 mmol/L [facility] CO2 [Moles/Vol] 17 mmol/L Low 22 - 30 mmol/L [facility] Creatinine [Mass/Vol] 1.12 mg/dL High 0.52 - 1.04 mg/dL [facility] GFR/1.73 sq M.predicted (S/P/Bld) [Vol rate/Area] 48.6 mL/min Low - PINF [facility] Comment on above: Calculation based on the Chronic Kidney Disease Epidemiology Collaboration (CKD-EPI) equation refit without adjustment for race Glucose [Mass/Vol] 102 mg/dL High 70 - 100 mg/dL [facility] Interpretation and review of laboratory results Abnormal [facility] Potassium [Moles/Vol] 4.8 mmol/L 3.5 - 5.1 mmol/L [facility] Sodium [Moles/Vol] 133 mmol/L Low 135 - 145 mmol/L [facility] Urea nitrogen [Mass/Vol] 25 mg/dL High 7 - 17 mg/dL [facility] CARECOORDon 04-05-2024 [place] Normal [facility] CBC W Auto Differential pane l (Bld)on 04-05-2024 Basophils (Bld) [#/Vol] 0.1 10*3/uL 0.0 - 0.2 10*3/uL [facility] Basophils/100 WBC (Bld) 1.0 % 0.0 - 2.0 % [facility] Eosinophils (Bld) [#/Vol] 0.2 10*3/uL 0.0 - 0.5 10*3/uL [facility] Eosinophils/100 WBC (Bld) 2.9 % 0.0 - 6.0 % [facility] Erythrocyte distribution width (RBC) [Ratio] 14.4 % 11.5 - 15.0 % [facility] Hematocrit (Bld) [Volume fraction] 32.3 % Low 35.0 - 47.0 % [facility] Hemoglobin (Bld) [Mass/Vol] 10.6 g/dL Low 11.7 - 16.0 g/dL [facility] Immature granulocytes (Bld) [#/Vol] 0.0 10*3/uL NINF - 0.1 10*3/uL [facility] Immature granulocytes/100 WBC (Bld) 0.3 % 0.0 - 2.0 % [facility] Interpretation and review of laboratory results Abnormal [facility] Lymphocytes (Bld) [#/Vol] 1.7 10*3/uL 1.0 - 4.3 10*3/uL [facility] Lymphocytes/100 WBC (Bld) 27.5 % 15.0 - 45.0 % [facility] MCH (RBC) [Entitic mass] 30.7 pg 26.0 - 34.0 pg [facility] MCHC (RBC) [Mass/Vol] 32.8 % 30.5 - 36.0 % [facility] MCV (RBC) [Entitic vol] 93.6 fL 77.0 - 99.0 fL [facility] Monocytes (Bld) [#/Vol] 0.6 10*3/uL 0.0 - 0.9 10*3/uL [facility] Monocytes/100 WBC (Bld) 9.0 % 5.0 - 13.0 % [facility] Neutrophils (Bld) [#/Vol] 3.6 10*3/uL 1.8 - 7.5 10*3/uL [facility] Neutrophils/100 WBC (Bld) 59.3 % 38.0 - 82.0 % [facility] Nucleated RBC/100 WBC (Bld) [Ratio] 0.0 % [facility] Platelet mean volume (Bld) [Entitic vol] 10.1 fL 9.0 - 12.7 fL [facility] Platelets (Bld) [#/Vol] 204 10*3/uL 140 - 440 10*3/uL [facility] RBC (Bld) [#/Vol] 3.45 10*6/uL Low 3.80 - 5.2 0 10*6/uL [facility] WBC (Bld) [#/Vol] 6.1 10*3/uL 3.6 - 10.7 10*3/uL [facility] CBC WITH AUTO DIFFERENTIALon 04-05-2024 Basophils (Bld) [#/Vol] 0.1 10*3/uL Normal 0.0-0.2 [facility] Comment on above: Performed By: #### L [id number] ####Pre Press Operator: VELMA VALADEZ ([phone])[facility])[address] [place] [address] Basophils/100 WBC (Bld) 1.0 % Normal 0.0-2.0 [facility] Comment on above: Performed By: #### L [id number] ####Pre Press Operator: VELMA VALADEZ ([phone])[facility])[address] [place] [address] [place] Eosinophils (Bld) [#/Vol] 0.2 10*3/uL Normal 0.0-0.5 [facility] Comment on above: Performed By: #### L [id number] ####Pre Press Operator: VELMA [id number])[facility])[address] [place] [address] [place] Eosinophils/100 WBC (Bld) 2.9 % Normal 0.0-6.0 [facility] Comment on above: Performed By: #### L [id number] ####Pre Press Operator: VELMA [id number])[facility])[address] [place] [address] Erythrocyte distribution width (RBC) [Ratio] 14.4 % Normal 11.5-15.0 [facility] Comment on above: Performed By: #### L [id number] ####Pre Press Operator: VELMA VALADEZ ([phone])[facility])[address] [place] [address] Hematocrit (Bld) [Volume fraction] 32.3 % Low 35.0-47.0 [facility] Comment on above: Performed By: #### L [id number] ####Pre Press Operator: VELMA VALADEZ ([phone])[facility])[address] [place] [address] Hemoglobin (Bld) [Mass/Vol] 10.6 g/dL Low 11.7-16.0 [facility] Comment on above: Performed By: #### L [id number] ####Pre Press Operator: VELMA VALADEZ ([phone])[facility])[address] [place] [address] IMMATURE GRANS % 0.3 % Normal 0.0-2.0 [facility] Comment on above: Performed By: #### L [id number] ####Pre Press Operator: VELMA VALADEZ ([phone])[facility])[address] [place] [address] IMMATURE GRANS ABSOLUTE 0.0 10*3/uL Normal <0.1 [facility] Comment on above: Performed By: #### L [id number] ####Pre Press Operator: VELMA VALADEZ ([phone])[facility])[address] [place] [address] [place] Lymphocytes (Bld) [#/Vol] 1.7 10*3/uL Normal 1.0-4.3 [facility] Comment on above: Performed By: #### L [id number] ####Pre Press Operator: VELMA VALADEZ ([id number])[facility])[address] [place] [address] [place] Lymphocytes/100 WBC (Bld) 27.5 % Normal 15.0-45.0 [facility] Comment on above: Performed By: #### L [id number] ####Pre Press Operator: VELMA VALADEZ ([phone])[facility])[address] [place] [address] MCH (RBC) [Entitic mass] 30.7 pg Normal 26.0-34.0 [facility] Comment on above: Performed By: #### L [id number] ####Pre Press Operator: VELMA VALADEZ ([phone])[facility])[address] [place] [address] MCHC 32.8 % Normal 30.5-36.0 [facility] Comment on above: Performed By: #### L [id number] ####Pre Press Operator: VELMA VALADEZ ([phone])[facility])[address] [place] [address] MCV (RBC) [Entitic vol] 93.6 fL Normal 77.0-99.0 [facility] Comment on above: Performed By: #### L [id number] ####Pre Press Operator: VELMA VALADEZ ([phone])[facility])[address] [place] [address] Monocytes (Bld) [#/Vol] 0.6 10*3/uL Normal 0.0-0.9 [facility] Comment on above: Performed By: #### L [id number] ####Pre Press Operator: VELMA VALADEZ ([phone])[facility])[address] [place] [address] Monocytes/100 WBC (Bld) 9.0 % Normal 5.0-13.0 S [facility] Comment on above: Performed By: #### L [id number] ####Pre Press Operator: VELMA VALADEZ ([phone])[facility])[address] [place] [address] NEUTROPHILS ABSOLUTE 3.6 10*3/uL Normal 1.8-7.5 [facility] Comment on above: Performed By: #### L [id number] ####Pre Press Operator: VELMA VALADEZ ([phone])[facility] ([facility])[address] [place] [address] Neutrophils/100 WBC (Bld) 59.3 % Normal 38.0-82.0 [facility] Comment on above: Performed By: #### L [id number] ####Pre Press Operator: VELMA VALADEZ ([phone])[facility] ([facility])[address] [place] [address] NRBC 0.0 /100 WBCs Normal 0.0-2.0 [facility] Comment on above: Performed By: #### L [id number] ####Pre Press Operator: VELMA VALADEZ ([phone])[facility])[address] [place] [address] Platelet mean volume (Bld) [Entitic vol] 10.1 fL Normal 9.0-12.7 [facility] Comment on above: Performed By: #### L [id number] ####Pre Press Operator: VELMA VALADEZ ([phone])[facility] ([facility])[address] [place] [address] Platelets (Bld) [#/Vol] 204 10*3/uL Normal 140-440 [facility] Comment on above: Performed By: #### L [id number] ####Pre Press Operator: VELMA VALADEZ ([id number])[facility] ([facility])[address] [place] [address] RBC (Bld) [#/Vol] 3.45 10*6/uL Low 3.80-5.20 [facility] Comment on above: Performed By: #### L [id number] ####Pre Press Operator: VELMA VALADEZ ([phone])[facility])[address] [place] [address] WBC (Bld) [#/Vol] 6.1 10*3/uL Normal 3.6-10.7 [facility] Comment on above: Performed By: #### L [id number] ####Pre Press Operator: VELMA [id number])[facility])[address] [place] [address] [place] IDNon 04-05-2024 IDN The patient is Moderately Stable - Low risk of patient condition declining or worsening The patient's goals for the shift include met The clinical goals for the shift include met Normal [facility] - Coagulationon 0 04-05-2024 PT Coag (Bld) [Time] 11.4 s 9.0 - 1 2.0 s [facility] PT Coag (Bld) [Time] 11.9 s 9.0 - 1 2.0 s [facility] No Panel Informationon 04-05 [facility] PROTHROMBIN TIMEon INR Coag (PPP) [Relative time] 1.0 {INR} Normal 0.9-1.1 [facility] Comment on above: Performed By: #### L [id number], [id number] ####Pre Press Operator: VELMA [id number])[facility])[address] [place] [address] PT Coag (PPP) [Time] 11.4 s Normal 9.0-12.0 [facility] Comment on above: Performed By: #### L [id number], [id number] ####Pre Press Operator: VELMA [phone])[address] INR Coag (PPP) [Relative time] 1.1 {INR} Normal 0.9-1.1 [facility] Comment on above: Result Comment: Timothy mmended [...] Myocardial Infarction Performed By: #### L [id number], [id number] ####Pre Press Operator: VELMA [id number])[facility] ([facility])[address] [place] [address] PT Coag (PPP) [Time] 11.9 s Normal 9.0-12.0 [facility] Comment on above: Performed By: #### L [id number], [id number] ####Pre Press Operator: VELMA VALADEZ ([phone])[facility] ([facility])[address] [place] [address] PT Coag (Bld) [Time]on 04-05 INR Coag (PPP) [Relative time] 1.0 {INR} 0.9 - 1.1 [facility] Interpretation and review of laboratory results Normal [facility] INR Coag (PPP) [Relative time] 1.1 {INR} 0.9 - 1.1 [facility] Comment on above: Recommended Anticoag ulant [...] Interpretation and review of laboratory results Normal [facility] Progress Noteon 04-05-2024 Progress Note Normal [facility] Progress Note Nutrition rescreen completed. Chart reviewed. Patient to be monitored and followed by the diet gis mapping technician. FADI Harmon Normal [facility] Progress Note Normal [facility] Progress Note Normal [facility] aPTT Coag (Bld) [Time]on aPTT Coag (PPP) [Time] 76.6 s High 20.0 - 30.5 s [facility] Interpretation and review of laboratory results Abnormal [facility] NOTE: The therapeuti c time for Heparin anticoagulation, based on Xa activity inhibition, is an APTT of 46-80 seconds. [facility] aPTT Coag (PPP) [Time] 69.9 s High 20.0 - 30.5 s [facility] Interpretation and review of laboratory results Abnormal [facility] NOTE: The therapeuti c time for Heparin anticoagulation, based on Xa activity inhibition, is an APTT of 46-80 seconds. [facility] aPTT Coag (PPP) [Time] 88.8 s High 20.0 - 30.5 s [facility] Interpretation and review of laboratory results Abnormal [facility] NOTE: The therapeuti c time for Heparin anticoagulation, based on Xa activity inhibition, is an APTT of 46-80 seconds. [facility] aPTT Coag (Bld) [Time]Ordere d By: Juni Millard on 04-05-2024 aPTT Coag (PPP) [Time] 109.7 s High 20.0 - 30.5 s [facility] Interpretation and review of laboratory results Abnormal [facility] NOTE: The therapeuti c time for Heparin anticoagulation, based on Xa activity inhibition, is an APTT of 46-80 seconds. [facility] [id number] 04-04-2024 [id number] Normal [facility] [id number] Normal [facility] APTTon 04-04-2024 aPTT Coag (Bld) [Time] 81.8 s High 20.0-30.5 [facility] Comment on above: Result Comment: BUBBA Garcia COMMENTS:NOTE: The therapeutic time for Heparin anticoagulation, based on Xa activity inhibition, is an APTT of 46-80 seconds. Performed By: #### L [id number] ####Pre Press Operator: VELMA VALADEZ ([phone])[address] aPTT Coag (Bld) [Time] 81.4 s High 20.0-30.5 [facility] Comment on above: Result Comment: BUBBA Garcia COMMENTS:NOTE: The therapeutic time for Heparin anticoagulation, based on Xa activity inhibition, is an APTT of 46-80 seconds. Performed By: #### L [id number] ####Pre Press Operator: VELMA VALADEZ ([phone])[facility])[address] [place] [address] aPTT Coag (Bld) [Time] 132.2 s Critically high 20.0-30. 5 [facility] Comment on above: Result Comment: BUBBA Garcia COMMENTS:NOTE: The therapeutic time for Heparin anticoagulation, based on Xa activity inhibition, is an APTT of 46-80 seconds. Performed By: #### L [id number] ####Pre Press Operator: VELMA VALADEZ ([phone])[facility])[address] [place] [address] BASIC METABOLIC PANELon 09- Anion gap [Moles/Vol] 8 mmol/L Normal 3-13 [facility] Comment on above: Performed By: #### L AB15 ####Pre Press Operator: VELMA VALADEZ ([phone])[facility] ([facility])[address] [place] [address] Calcium [Mass/Vol] 9.3 mg/dL Normal 8.4-10.4 [facility] Comment on above: Performed By: #### L AB15 ####Pre Press Operator: VELMA VALADEZ ([phone])[facility] ([facility])[address] [place] [address] Chloride [Moles/Vol] 110 mmol/L High 98-107 [facility] Comment on above: Performed By: #### L AB15 ####Pre Press Operator: VELMA VALADEZ ([id number])[facility] ([facility])[address] [place] [address] CO2 [Moles/Vol] 18 mmol/L Low 22-30 [facility] Comment on above: Performed By: #### L AB15 ####Pre Press Operator: VELMA VALADEZ ([phone])[facility])[address] [place] [address] Creatinine [Mass/Vol] 1.45 mg/dL High 0.52-1.04 [facility] Comment on above: Performed By: #### L AB15 ####Pre Press Operator: VELMA VALADEZ ([phone])[facility])[address] [place] [address] GLOMERULAR FILTRATION RATE ML/MIN/1.73 SQ M.PREDICTED 35.6 mL/min/1.73m*2 Low >60.0 [facility] Comment on above: Result Comment: Calc ulation based on the Chronic Kidney Disease Epidemiology Collaboration (CKD-EPI) equation refit without adjustment for race Performed By: #### L AB15 ####Pre Press Operator: VELMA VALADEZ ([phone])[facility] ([facility])[address] [place] [address] Glucose [Mass/Vol] 100 mg/dL Normal 70-100 [facility] Comment on above: Performed By: #### L AB15 ####Pre Press Operator: VELMA VALADEZ ([phone])[facility] ([facility])[address] [place] [address] Potassium [Moles/Vol] 4.5 mmol/L Normal 3.5-5.1 [facility] Comment on above: Performed By: #### L AB15 ####Pre Press Operator: VELMA VALADEZ ([phone])[facility] ([facility])[address] [place] [address] Sodium [Moles/Vol] 135 mmol/L Normal 135-145 [facility] Comment on above: Performed By: #### L AB15 ####Pre Press Operator: VELMA VALADEZ ([id number])[facility] ([facility])[address] [place] [address] Urea nitrogen [Mass/Vol] 30 mg/dL High 7-17 [facility] Comment on above: Performed By: #### L AB15 ####Pre Press Operator: VELMA VALADEZ ([phone])[facility] ([facility])[address] [place] [address] Basic metabolic 1998 panelOr dered By: Marielle Garcia on 04-04-2024 Anion gap [Moles/Vol] 8 mmol/L 3 - 13 mmol/L [facility] Calcium [Mass/Vol] 9.3 mg/dL 8.4 - 10. 4 mg/dL [facility] Chloride [Moles/Vol] 110 mmol/L High 98 - 10 7 mmol/L [facility] CO2 [Moles/Vol] 18 mmol/L Low 22 - 30 mmol/L [facility] Creatinine [Mass/Vol] 1.45 mg/dL High 0.52 - 1.04 mg/dL [facility] GFR/1.73 sq M.predicted (S/P/Bld) [Vol rate/Area] 35.6 mL/min Low - PINF [facility] Comment on above: Calculation based on the Chronic Kidney Disease Epidemiology Collaboration (CKD-EPI) equation refit without adjustment for race Glucose [Mass/Vol] 100 mg/dL 70 - 100 mg/dL [facility] Interpretation and review of laboratory results Abnormal [facility] Potassium [Moles/Vol] 4.5 mmol/L 3.5 - 5.1 mmol/L [facility] Sodium [Moles/Vol] 135 mmol/L 135 - 145 mmol/L [facility] Urea nitrogen [Mass/Vol] 30 mg/dL High 7 - 17 mg/dL [facility] CARECOORDon 04-04-2024 [facility] CBC W Auto Differential pane l (Bld)on 04-04-2024 Basophils (Bld) [#/Vol] 0.1 10*3/uL 0.0 - 0.2 10*3/uL [facility] Basophils/100 WBC (Bld) 0.7 % 0.0 - 2.0 % [facility] Eosinophils (Bld) [#/Vol] 0.3 10*3/uL 0.0 - 0.5 10*3/uL [facility] Eosinophils/100 WBC (Bld) 3.2 % 0.0 - 6.0 % [facility] Erythrocyte distribution width (RBC) [Ratio] 14.2 % 11.5 - 15.0 % [facility] Hematocrit (Bld) [Volume fraction] 38.8 % 35.0 - 47.0 % [facility] Hemoglobin (Bld) [Mass/Vol] 12.5 g/dL 11.7 - 16.0 g/dL [facility] Immature granulocytes (Bld) [#/Vol] 0.1 10*3/uL High NINF - 0.1 10*3/uL [facility] Immature granulocytes/100 WBC (Bld) 0.6 % 0.0 - 2.0 % [facility] Interpretation and review of laboratory results Abnormal [facility] Lymphocytes (Bld) [#/Vol] 1.6 10*3/uL 1.0 - 4.3 10*3/uL [facility] Lymphocytes/100 WBC (Bld) 19.2 % 15.0 - 45.0 % [facility] MCH (RBC) [Entitic mass] 29.7 pg 26.0 - 34.0 pg [facility] MCHC (RBC) [Mass/Vol] 32.2 % 30.5 - 36.0 % [facility] MCV (RBC) [Entitic vol] 92.2 fL 77.0 - 99.0 fL [facility] Monocytes (Bld) [#/Vol] 0.8 10*3/uL 0.0 - 0.9 10*3/uL [facility] Monocytes/100 WBC (Bld) 9.9 % 5.0 - 13.0 % [facility] Neutrophils (Bld) [#/Vol] 5.3 10*3/uL 1.8 - 7.5 10*3/uL [facility] Neutrophils/100 WBC (Bld) 66.4 % 38.0 - 82.0 % [facility] Nucleated RBC/100 WBC (Bld) [Ratio] 0.0 % [facility] Platelet mean volume (Bld) [Entitic vol] 10.0 fL 9.0 - 12.7 fL [facility] Platelets (Bld) [#/Vol] 266 10*3/uL 140 - 440 10*3/uL [facility] RBC (Bld) [#/Vol] 4.21 10*6/uL 3.80 - 5.2 0 10*6/uL [facility] WBC (Bld) [#/Vol] 8.1 10*3/uL 3.6 - 10.7 10*3/uL [facility] CBC WITH AUTO DIFFERENTIALon 04-04-2024 Basophils (Bld) [#/Vol] 0.1 10*3/uL Normal 0.0-0.2 [facility] Comment on above: Performed By: #### L [id number] ####Pre Press Operator: VELMA VALADEZ ([phone])[facility] ([address] Basophils/100 WBC (Bld) 0.7 % Normal 0.0-2.0 S [facility] Comment on above: Performed By: #### L [id number] ####Pre Press Operator: VELMA VALADEZ ([id number])[facility] [address] Eosinophils (Bld) [#/Vol] 0.3 10*3/uL Normal 0.0-0.5 [facility] Comment on above: Performed By: #### L [id number] ####Pre Press Operator: VELMA VALADEZ ([id number])[facility])[address] [place] [address] Eosinophils/100 WBC (Bld) 3.2 % Normal 0.0-6.0 [facility] Comment on above: Performed By: #### L [id number] ####Pre Press Operator: VELMA VALADEZ ([id number])[address] Erythrocyte distribution width (RBC) [Ratio] 14.2 % Normal 11.5-15.0 [facility] Comment on above: Performed By: #### L [id number] ####Pre Press Operator: VELMA VALADEZ ([id number])[facility])[address] [place] [address] Hematocrit (Bld) [Volume fraction] 38.8 % Normal 35.0-47.0 [facility] Comment on above: Performed By: #### L [id number] ####Pre Press Operator: VELMA VALADEZ ([id number])[address] [address] Hemoglobin (Bld) [Mass/Vol] 12.5 g/dL Normal 11.7-16.0 [facility] Comment on above: Performed By: #### L [id number] ####Pre Press Operator: VELMA VALADEZ ([phone])[facility])[address] [place] [address] IMMATURE GRANS % 0.6 % Normal 0.0-2.0 [facility] Comment on above: Performed By: #### L [id number] ####Pre Press Operator: VELMA VALADEZ ([id number])[facility])[address] [place] [address] IMMATURE GRANS ABSOLUTE 0.1 10*3/uL High <0.1 [facility] Comment on above: Performed By: #### L [id number] ####Pre Press Operator: VELMA VALADEZ ([phone])[facility])[address] [place] [address] Lymphocytes (Bld) [#/Vol] 1.6 10*3/uL Normal 1.0-4.3 [facility] Comment on above: Performed By: #### L [id number] ####Pre Press Operator: VELMA VALADEZ ([id number])[facility])[address] [place] [address] Lymphocytes/100 WBC (Bld) 19.2 % Normal 15.0-45.0 [facility] Comment on above: Performed By: #### L [id number] ####Pre Press Operator: VELMA VALADEZ ([phone])[facility])[address] [place] [address] MCH (RBC) [Entitic mass] 29.7 pg Normal 26.0-34.0 [facility] Comment on above: Performed By: #### L [id number] ####Pre Press Operator: VELMA VALADEZ ([id number])[facility])[address] [place] [address] MCHC 32.2 % Normal 30.5-36.0 [facility] Comment on above: Performed By: #### L [id number] ####Pre Press Operator: VELMA VALADEZ ([phone])[facility])[address] [place] [address] MCV (RBC) [Entitic vol] 92.2 fL Normal 77.0-99.0 [facility] Comment on above: Performed By: #### L [id number] ####Pre Press Operator: VELMA VALADEZ ([id number])[facility])[address] [place] [address] Monocytes (Bld) [#/Vol] 0.8 10*3/uL Normal 0.0-0.9 [facility] Comment on above: Performed By: #### L [id number] ####Pre Press Operator: VELMA VALADEZ ([id number])[facility] ([facility])[address] [place] [address] [place] Monocytes/100 WBC (Bld) 9.9 % Normal 5.0-13.0 [facility] Comment on above: Performed By: #### L [id number] ####Pre Press Operator: VELMA VALADEZ ([id number])[facility] ([facility])[address] [place] [address] NEUTROPHILS ABSOLUTE 5.3 10*3/uL Normal 1.8-7.5 [facility] Comment on above: Performed By: #### L [id number] ####Pre Press Operator: VELMA VALADEZ ([id number])[facility] ([facility])[address] [place] [address] Neutrophils/100 WBC (Bld) 66.4 % Normal 38.0-82.0 [facility] Comment on above: Performed By: #### L [id number] ####Pre Press Operator: VELMA VALADEZ ([id number])[facility] ([facility])[address] [place] [address] NRBC 0.0 /100 WBCs Normal 0.0-2.0 [facility] Comment on above: Performed By: #### L [id number] ####Pre Press Operator: VELMA VALADEZ ([phone])[facility] ([facility])[address] [place] [address] Platelet mean volume (Bld) [Entitic vol] 10.0 fL Normal 9.0-12.7 [facility] Comment on above: Performed By: #### L [id number] ####Pre Press Operator: VELMA VALADEZ ([id number])[facility] ([facility])[address] [place] [address] [place] Platelets (Bld) [#/Vol] 266 10*3/uL Normal 140-440 [facility] Comment on above: Performed By: #### L [id number] ####Pre Press Operator: VELMA VALADEZ ([id number])[facility] ([facility])[address] [place] [address] RBC (Bld) [#/Vol] 4.21 10*6/uL Normal 3.80-5.20 [facility] Comment on above: Performed By: #### L [id number] ####Pre Press Operator: VELMA VALADEZ ([id number])[facility] ([facility])[address] [place] [address] WBC (Bld) [#/Vol] 8.1 10*3/uL Normal 3.6-10.7 [facility] Comment on above: Performed By: #### L [id number] ####Pre Press Operator: VELMA VALADEZ ([id number])[facility] ([facility])[address] [place] [address] Consulton 04-04-2024 Consult [facility] Consult Normal [facility] ECG 12-LEADon 04-04-2024 ECG 12-LEAD IMPRESSION: Atrial fibrillation Borderline T abnormalities, inferior leads Compared to ECG 08/28/11 Sinus rhythm no longer noted Electronically Signed On 04-04-2024 03:48:37 EDT by Sourav wSenson [facility] ED Nursing Noteon 04-04-2024 ED Nursing Note Report to Deliaarianne Bond RN 04/04/24 0342 [facility] ED Nursing Note Multiple attempts ma de to call report to [facility] with phone number provided by caustic purification operator, but when phone number dialed RN only gets busy tone. Will try again. Shannon Bond RN 04/04/24 0331 [facility] ED Nursing Note [facility] at bedside to transport pt to [facility]. Paperwork with EMS Shannon Bond RN 04/04/24 0314 [facility] IDNon 04-04-2024 IDN The patient is Moderately Stable - Low risk of patient condition declining or worsening The patient's goals for the shift include safety The clinical goals for the shift include therapeutic aptt Normal [facility] IDN [facility] No Panel Informationon 04-04 Left Pop Rfx 1.1 s [facility] Acute extensive DVT in the right [...] popliteal vein. History of DVT in 2021 [employer]et Support Details A george scale, color Doppler imaging, spectral Doppler analysis and B-flow ultrasound was performed. During the study 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 and transverse views were obtained. Pulsed wave doppler was performed. The exam was performed with the patient in the supine position. Overall the study quality was adequate. Study was technically difficult due to: bowel gas. CV CPACS Left MICHELLE 0.62 [facility] Left dorsalis pedis BP 78 mmHg [facility] Left posterior tibial 86 mmHg [facility] Right MICHELLE 0.55 [facility] Right arm BP 139 mmHg [facility] Right dorsalis pedis BP 65 mmHg S [facility] Right posterior tibial 76 mmHg [facility] Right side findings: Resting MICHELLE is [...] of RLE discovered just before PVR testing. [employer]et Support Details A spectral Doppler analysis ultrasound was [...] 04-04-2024 03:48:37 EDT by Sourav Swenson CV EPIPHANY Sourav Swenson D O - 04/04/2024 IMPRESSION: Atrial fibrillation Borderline T abnormalities, inferior leads Compared to ECG 08/28/11 Sinus rhythm no longer noted Electronically Signed On 04-04-2024 03:48:37 EDT by Sourav Swenson [employer] No Panel InformationOrdered By: Sourav Swenson on 04-04-2024 P Equality 0 degrees [employer] Phone: ME Interval 0 ms [employer] Phone: QRS Equality 40 degrees [employer] Phone: QRSD Interval 86 ms [employer] Work Phone: QT Interval 352 ms [employer] Phone: QTC Interval 411 ms [employer] Phone: T Wave Equality -3 degrees [employer] Phone: [employer] Phone: Progress Noteon 04-04-2024 Progress Note Normal [employer] System [facility] Progress Note Normal [facility] Progress Note Normal [facility] Vital signsOrdered By: Cathy Swenson on 04-04-2024 Heart rate 82 /min bpm [facility] Work Phone: aPTT Coag (Bld) [Time]on aPTT Coag (PPP) [Time] 81.8 s High 20.0 - 30.5 s [facility] Interpretation and review of laboratory results Abnormal [facility] NOTE: The therapeuti c time for Heparin anticoagulation, based on Xa activity inhibition, is an APTT of 46-80 seconds. [facility] aPTT Coag (PPP) [Time] 81.4 s High 20.0 - 30.5 s [facility] Interpretation and review of laboratory results Abnormal [facility] NOTE: The therapeuti c time for Heparin anticoagulation, based on Xa activity inhibition, is an APTT of 46-80 seconds. [facility] aPTT Coag (Bld) [Time]Ordere d By: Devika Eisenberg on 04-04-2024 aPTT Coag (PPP) [Time] 132.2 s Critically high 20 .0 - 30.5 s [facility] Interpretation and review of laboratory results Abnormal [facility] NOTE: The therapeuti c time for Heparin anticoagulation, based on Xa activity inhibition, is an APTT of 46-80 seconds. [facility] APTTon 04-03-2024 aPTT Coag (Bld) [Time] 25.6 s Normal 20.0-30.5 [facility] Comment on above: Result Comment: BUBBA Garcia COMMENTS:NOTE: The therapeutic time for Heparin anticoagulation, based on Xa activity inhibition, is an APTT of 46-80 seconds. Performed By: #### L [id number] ####Pre Press Operator: MARYLOU MAY ([id number])[facility] ([facility])[address] [place] [address] CBC (HEMOGRAM)on 04-03-2024 Erythrocyte distribution width (RBC) [Ratio] 14.4 % Normal 11.5-15.0 [facility] Comment on above: Performed By: #### L [id number] ####Pre Press Operator: MARYLOU MAY ([id number])[place] ([facility])[address] Hematocrit (Bld) [Volume fraction] 38.6 % Normal 35.0-47.0 [facility] Comment on above: Performed By: #### L [id number] ####Pre Press Operator: MARYLOU KUMARIJHONATHAN ([id number])[facility]OSPITALSimran VELASQUEZMIMBRES MEMORIAL HOSPITALBossamn ([facility]HLAB)[address] Hemoglobin (Bld) [Mass/Vol] 12.7 g/dL Normal 11.7-16.0 [facility] Comment on above: Performed By: #### L [id number] ####Pre Press Operator: MARYLOU MAY ([id number])[facility]OSPITALSimran VELASQUEZMIMBRES MEMORIAL HOSPITALBossman ([facility])[address] MCH (RBC) [Entitic mass] 30.4 pg Normal 26.0-34.0 [facility] Comment on above: Performed By: #### L [id number] ####Pre Press Operator: MARYLOU MAY ([id number])[facility]OS[facility]ITALSimran VELASQUEZMIMBRES MEMORIAL HOSPITALBossman ([facility])[address] MCHC 32.9 % Normal 30.5-36.0 [facility] Comment on above: Performed By: #### L [id number] ####Pre Press Operator: MARYLOU MAY ([id number])[facility] HOSPITALSimran VELASQUEZKANU (SBHL[facility])[address] MCV (RBC) [Entitic vol] 92.3 fL Normal 77.0-99.0 [facility] Comment on above: Performed By: #### L [id number] ####Pre Press Operator: MARYLOU MAY ([id number])[facility]ITALSimran VELASQUEZMIMBRES MEMORIAL HOSPITALBossman (SB[facility])[address] Platelet mean volume (Bld) [Entitic vol] 10.0 fL Normal 9.0-12.7 [facility] Comment on above: Performed By: #### L AB294 ####Pre Press Operator: MARYLOU MAY ([id number])[facility] HOSPITALSimran SERRATO (SBHLAB)[address] Platelets (Bld) [#/Vol] 283 10*3/uL Normal 140-440 [facility] Comment on above: Performed By: #### L [id number] ####Pre Press Operator: MARYLOU KUMARIJHONATHAN ([id number])[facility] HOSPITALSimran [facility]QUEZFLORENCE [facility] (SB[facility])[address] RBC (Bld) [#/Vol] 4.18 10*6/uL Normal 3.80-5.20 [facility] Comment on above: Performed By: #### L [id number] ####Pre Press Operator: MARYLOU KUMARIJHONATHAN ([id number])[facility] HOSPITALSimran SERRATO ([facility])[address] WBC (Bld) [#/Vol] 9.3 10*3/uL Normal 3.6-10.7 [facility] Comment on above: Performed By: #### L AB294 ####Pre Press Operator: MARYLOU KUMARIJHONATHAN ([id number])[facility]OSPITALSimran [facility]QUEZFLORENCE COMMUN[facility] (SB[facility])[address] CBC panel Auto (Bld)on 04-03 Erythrocyte distribution width (RBC) [Ratio] 14.4 % 11.5 - 15.0 % [facility] Hematocrit (Bld) [Volume fraction] 38.6 % 35.0 - 47.0 % [facility] Hemoglobin (Bld) [Mass/Vol] 12.7 g/dL 11.7 - 16.0 g/dL [facility] Interpretation and review of laboratory results Normal [facility] MCH (RBC) [Entitic mass] 30.4 pg 26.0 - 34.0 pg [facility] MCHC (RBC) [Mass/Vol] 32.9 % 30.5 - 36.0 % [facility] MCV (RBC) [Entitic vol] 92.3 fL 77.0 - 99.0 fL [facility] Platelet mean volume (Bld) [Entitic vol] 10.0 fL 9.0 - 12.7 fL [facility] Platelets (Bld) [#/Vol] 283 10*3/uL 140 - 440 10*3/uL [facility] RBC (Bld) [#/Vol] 4.18 10*6/uL 3.80 - 5.2 0 10*6/uL [facility] WBC (Bld) [#/Vol] 9.3 10*3/uL 3.6 - 10.7 10*3/uL [facility] COMPREHENSIVE METABOLIC PANE Gilberto 04-03-2024 Albumin [Mass/Vol] 4.3 g/dL Normal 3.5-5.0 [facility] Comment on above: Performed By: #### L AB103, [id number], LAB17 ####Pre Press Operator: MARYLOU MAY ([id number])[facility] HOSPITALA [place] (SBHLAB)[address] ALP [Catalytic activity/Vol] 91 U/L Normal 38-126 [facility] Comment on above: Performed By: #### L AB103, [id number], LAB17 ####Pre Press Operator: MARYLOU MAY ([id number])[facility] HOSPITALA [facility] HOSPITALCORALN (SBHLAB)[address] ALT [Catalytic activity/Vol] 10 U/L Normal 0-34 [facility] Comment on above: Performed By: #### L AB103, AQR905, LAB17 ####Pre Press Operator: MARYLOU MAY ([id number])[facility] HOSPITALKANU (SBHLAB)[address] Anion gap [Moles/Vol] 9 mmol/L Normal 3-13 [facility] Comment on above: Performed By: #### L AB103, TQH103, LAB17 ####Pre Press Operator: MARYLOU MAY ([id number])[facility] ([facility])[address] AST [Catalytic activity/Vol] 19 U/L Normal 15-46 [facility] Comment on above: Performed By: #### L AB103, [id number], LAB17 ####Pre Press Operator: MARYLOU MAY ([id number])[facility] ([facility])[address] Bilirubin [Mass/Vol] 1.1 mg/dL Normal 0.2-1.3 [facility] Comment on above: Performed By: #### L AB103, FTA000, LAB17 ####Pre Press Operator: MARYLOU MAY ([id number])[facility]OSPITALSimran VELASQUEZMIMBRES MEMORIAL HOSPITALN (SBHLAB)[address] Calcium [Mass/Vol] 9.3 mg/dL Normal 8.4-10.4 [facility] Comment on above: Performed By: #### L AB103, FZC296, LAB17 ####Pre Press Operator: MARYLOU MAY ([id number])[facility] HOSPITALSimran [place] (SBHLAB)[address] Chloride [Moles/Vol] 107 mmol/L Normal 98-107 [facility] Comment on above: Performed By: #### L AB103, TVJ508, LAB17 ####Pre Press Operator: MARYLOU MAY ([id number])[facility] HOSPITALSimran [place] (SBHLAB)[address] [place] [address] [place] CO2 [Moles/Vol] 20 mmol/L Low 22-30 [facility] Comment on above: Performed By: #### L AB103, DRU163, LAB17 ####Pre Press Operator: MARYLOU MAY ([id number])[facility] ([facility])[address] [place] [address] [place] Creatinine [Mass/Vol] 1.54 mg/dL High 0.52-1.04 [facility] Comment on above: Performed By: #### L AB103, [id number], LAB17 ####Pre Press Operator: MARYLOU MAY ([id number])[facility]OSPITALSimran VELASQUEZMIMBRES MEMORIAL HOSPITALN (SB[facility]AB)[address] GLOMERULAR FILTRATION RATE ML/MIN/1.73 SQ M.PREDICTED 33.2 mL/min/1.73m*2 Low >60.0 [facility] Comment on above: Result Comment: Calc ulation based on the Chronic Kidney Disease Epidemiology Collaboration (CKD-EPI) equation refit without adjustment for race Performed By: #### Weston DAWSON, JEL107, LAB17 ####Pre Press Operator: MARYLOU MAY ([id number])TIFFANYA RONCORALN ([facility])[address] Glucose [Mass/Vol] 115 mg/dL High 70-100 [facility] Comment on above: Performed By: #### Weston DAWSON, [id number], LAB17 ####Pre Press Operator: MARYLOU MAY ([id number])[facility]ITALA [place] (SBHLAB)[address] Potassium [Moles/Vol] 5.7 mmol/L High 3.5-5.1 [facility] Comment on above: Performed By: #### Weston DAWSON, [id number], LAB17 ####Pre Press Operator: MARYLOU MAY ([id number])[facility]ITALA [place] (SBHLAB)[address] Protein [Mass/Vol] 7.7 g/dL Normal 6.3-8.2 [facility] Comment on above: Performed By: #### Weston DAWSON, [id number], LAB17 ####Pre Press Operator: MARYLOU MAY ([id number])[facility]ITALA [place] (SBHLAB)[address] [place] [address] [place] Sodium [Moles/Vol] 135 mmol/L Normal 135-145 [facility] Comment on above: Performed By: #### Weston DAWSON, FAQ284, LAB17 ####Pre Press Operator: MARYLOU MAY ([id number])[facility]ITALA [place] (SBHLAB)[address] [place] [address] [place] Urea nitrogen [Mass/Vol] 29 mg/dL High 7-17 [facility] Comment on above: Performed By: #### L AB103, EBQ466, LAB17 ####Pre Press Operator: MARYLOU MAY ([id number])[facility]ITALA [place] (SBHLAB)[address] [place] [address] [facility] [address] HEAD WO IV CONTRASTon CT HEAD WO IV CONTRAST Normal [facility] CT Head WO contraston 2023 1. No acute finding. Chronic left cerebellar infarct.. Report Dictated on Electronically Signed By: Toño Tang MD Electronically Signed Date/Time: 04/03/2024 9:21 PM EDT [facility] Patient Name: MEL CARVER RD : 1940 [id number] Exam Date/Time: 04/03/2024 21:06 Procedure: CT HEAD [...] midline shift. No hydrocephalus. Left globe prosthesis. [facility] Toño Tang MD - 04/03/2024 Patient [...] Electronically Signed Date/Time: 04/03/2024 9:21 PM EDT [facility] Radiology Study observation (narrative) [facility] Head WO contrastOrdered B y: Toño Tang on 04-03-2024 [facility] Work Phone: CTA AORTA BL ILIOFEMORAL W W Oon 04-03-2024 CTA AORTA BL ILIOFEMORAL W WO Normal [facility] CTA Thoracic and Abdominal A zachary and Bilateral Runoff Vessels WO and W contrast Cheryl 04-03-2024 1. Severe lower extremity atherosclerotic disease. 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 2. 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 3. Severe diverticulosis. Report Dictated on Electronically Signed By: Toño Tang MD Electronically Signed Date/Time: 04/03/2024 9:36 PM EDT [employer] Patient Name: MEL CARVER RD : 1940 Exam Date/Time: 04/03/2024 21:14 Procedure: [...] into the mid to distal lower leg. [facility] Toño Tang MD - 04/03/2024 Patient Name: MEL POP : 1940 [facility]#: [id number] Exam Date/Time: 04/03/2024 21:14 Procedure: CTA AORTA [...] Electronically Signed Date/Time: 04/03/2024 9:36 PM EDT [facility] Radiology Study observation (narrative) [facility] Comprehensive metabolic 1998 panelon 04-03-2024 Albumin [Mass/Vol] 4.3 g/dL 3.5 - 5.0 g/dL [facility] ALP [Catalytic activity/Vol] 91 U/L 38 - 126 U/L [facility] ALT [Catalytic activity/Vol] 10 U/L 0 - 34 U/L [facility] Anion gap [Moles/Vol] 9 mmol/L 3 - 13 mmol/L [facility] AST [Catalytic activity/Vol] 19 U/L 15 - 46 U/L [facility] Bilirubin [Mass/Vol] 1.1 mg/dL 0.2 - 1 .3 mg/dL [facility] Calcium [Mass/Vol] 9.3 mg/dL 8.4 - 10. 4 mg/dL [facility] Chloride [Moles/Vol] 107 mmol/L 98 - 10 7 mmol/L [facility] CO2 [Moles/Vol] 20 mmol/L Low 22 - 30 mmol/L [facility] Creatinine [Mass/Vol] 1.54 mg/dL High 0.52 - 1.04 mg/dL [facility] GFR/1.73 sq M.predicted (S/P/Bld) [Vol rate/Area] 33.2 mL/min Low - PINF [facility] Comment on above: Calculation based on the Chronic Kidney Disease Epidemiology Collaboration (CKD-EPI) equation refit without adjustment for race Glucose [Mass/Vol] 115 mg/dL High 70 - 100 mg/dL [facility] Interpretation and review of laboratory results Abnormal [facility] Potassium [Moles/Vol] 5.7 mmol/L High 3.5 - 5.1 mmol/L [facility] Protein [Mass/Vol] 7.7 g/dL 6.3 - 8.2 g/dL [facility] Sodium [Moles/Vol] 135 mmol/L 135 - 145 mmol/L [facility] Urea nitrogen [Mass/Vol] 29 mg/dL High 7 - 17 mg/dL [facility] ED Nursing Noteon 04-03-2024 ED Nursing Note Normal [facility] ED Provider Noteon ED Provider Note Normal [facility] Laboratory - Chemistry and C hemistry - challengeon 04-03-2024 Troponin I.cardiac [Mass/Vol] 0.014 ng/mL NINF - 0.034 ng/mL [facility] Magnesium [Mass/Vol] 2.3 mg/dL 1.6 - 2 .3 mg/dL [facility] Laboratory - Coagulationon 0 04-03-2024 aPTT Coag (PPP) [Time] 26.7 s 20.0 - 30.5 s [facility] INR Coag (PPP) [Relative time] 1.0 {INR} 0.9 - 1.1 [facility] Comment on above: Recommended Anticoag ulant [...] 11.7 s 9.0 - 1 2.0 s [facility] MAGNESIUMon 04-03-2024 Magnesium [Mass/Vol] 2.3 mg/dL Normal 1.6-2.3 [facility] Comment on above: Performed By: #### L AB103, HCW142, LAB17 ####Pre Press Operator: MARYLOU MAY ([id number])[facility] ROJELIO ([facility])[address] [place] [address] Magnesium [Mass/Vol]on 04-03 Interpretation and review of laboratory results Normal [facility] No Panel Informationon 04-03 [facility] Interpretation and review of laboratory results Normal [facility] PROTIME AND APTTon aPTT Coag (Bld) [Time] 26.7 s Normal 20.0-30.5 [facility] Comment on above: Performed By: #### L [id number] ####Pre Press Operator: MARYLOU MAY ([id number])[facility] ([facility])[address] INR Coag (PPP) [Relative time] 1.0 {INR} Normal 0.9-1.1 [facility] Comment on above: Result Comment: Timothy mmended [...] prevent Myocardial Infarction Performed By: #### L [id number] ####Pre Press Operator: MARYLOU MAY ([id number])[facility]ITALSimran [facility]ITAL[facility] ([facility])[address] [place] [address] PT Coag (PPP) [Time] 11.7 s Normal 9.0-12.0 [facility] Comment on above: Performed By: #### L [id number] ####Pre Press Operator: MARYLOU MAY ([id number])[facility]ITALSim[facility]ITAL[facility] ([facility])[address] [place] [address] TROPONIN Ion 04-03-2024 Troponin I.cardiac [Mass/Vol] 0.014 ng/mL Normal <0.034 [facility] Comment on above: Result Comment: BUBBA Garcia COMMENTS:Patients with high levels of Biotin oral intake (ie >5 mg/day) may have falsely decreased Troponin levels. Performed By: #### L AB103, ZIS236, LAB17 ####Pre Press Operator: MARYLOU MAY ([id number])[facility]ITALSimran [facility]ITALB[facility] ([facility])[address] [place] [address] [place] Troponin I.cardiac [Mass/Vol ]on 04-03-2024 Interpretation and review of laboratory results Normal [facility] Patients with high levels of Biotin oral intake (ie >5 mg/day) may have falsely decreased Troponin levels. [facility] aPTT Coag (Bld) [Time]on aPTT Coag (PPP) [Time] 25.6 s 20.0 - 30.5 s [facility] Interpretation and review of laboratory results Normal [facility] NOTE: The therapeuti c time for Heparin anticoagulation, based on Xa activity inhibition, is an APTT of 46-80 seconds. [facility] MR Lower leg - [...] Electronically Signed Date/Time: 06/16/2023 8:10 AM EST [employer] Patient Name: MEL CARVER RD : [...] and lateral ankle resulting from ORIF hardware. [facility] [employer] Dimas Woodward MD - 06/16/2023 Patient Name: MEL POP : 1940 [facility]#: [id number] Exam Date/Time: 06/15/2023 16:21 Procedure: MR TIBIA [...] MD Electronically Signed Date/Time: 06/16/2023 8:10 AM [facility] MR Lower leg - left WO and W contrast IVOrdered By: Dimas Woodward on 06-16-2023 [facility] [employer] Work Phone: MR Lower leg - left WO and W contrast Cheryl 06-15-2023 Radiology Study observation (narrative) [facility] alth No Panel Informationon 05-24 No evidence of venous thrombus in the left lower extremity. Report Dictated on Electronically Signed By: Yasmany Whyte MD Electronically Signed Date/Time: 05/24/2023 11:42 AM [employer] [facility] Patient Name: MEL CARVER RD, DOB: 1940 Exam Date/Time: 05/24/2023 12:35 Procedure: VAS US LOWER EXTREMITY VENOUS DUPLEX LEFT Ordering [...] augmentation and normal response to Valsalva maneuver. [facility] Yasmany Whyte MD - 05/24/2023 Patient Name: MEL POP : 1940 Exam Date/Time: 05/24/2023 12:35 Procedure: VAS US LOWER EXTREMITY VENOUS DUPLEX LEFT Ordering [...] Electronically Signed Date/Time: 05/24/2023 11:42 AM EST [facility] Neck W contrast Cheryl 02-16 Patient [...] 03/11/2023 Patient Name: MEL POP : 1940 [facility]#: [id number] Exam Date/Time: 03/08/2023 11:33 Procedure: CT SOFT [...] Electronically Signed Date/Time: 03/11/2023 10:28 AM EDT [facility] Neck W contrast IVOrdered By: Efrain Yi on 03-11-2023 [employer] [employer] Work Phone: CT Neck W contrast Cheryl 02-16 Radiology Study observation (narrative) Inna Kemp alth US Head and neck soft tissue on 02-24-2023 Indeterminate soft tissue nodules in the patients area of palpable concern in the left neck, which may represent enlarged left submandibular gland with obstructing sialolith and adjacent enlarged lymph node. Recommend further evaluation with contrast-enhanced neck CT. Report Dictated on Electronically Signed By: Ryan Mccollum MD Electronically Signed Date/Time: 02/24/2023 8:23 AM EDT [facility] [employer] Patient Name: MEL CARVER RD : [...] measuring 1.8 x 1.6 x 1.4 cm. [facility] Ryan Mccollum MD - 02/24/2023 [...] Electronically Signed Date/Time: 02/24/2023 8:23 AM EDT [facility] US Head and neck soft tissue Ordered By: Ryan Mccollum on 02-24-2023 [employer] Work Phone: US Head and neck soft tissue on 02-22-2023 Radiology Study observation (narrative) [facility] CONSULT PROGon 06-29-2022 CONSULT PROG HNO ID: [id number] Author: Nemo Petty APRN.CLEAN ROOM TECHNICIAN Service: Wound/Ostomy Author Type: Nurse Practitioner Type: Consult Progress Note Filed: 06/29/2022 12:51 PM Note Text: WOUND CARE SERVICE PROGRESS MARKETING STRATEGY LEAD NOTE SERVICE DATE: 06/29/2022 SERVICE TIME: 10:20 TIME SPENT (minutes): 30 REASON FOR CONSULT: follow up wound care visit to reassess skin/wounds CHIEF COMPLAINT: right finger wound Subjective HISTORY OF PRESENT ILLNESS: Ms. Kiesha Castillo is a 81 year old female who is seen today with Delia Bruno, Wound/energy director, as a follow up wound care [...] Wound Image Site Assessment Red;Intact Allie-Wound Assessment Poth Drainage Amount None Treatments Protective Barrier Ointment Dressing Foam- Adhesive Active Orders Date Order Priority Status Authorizing Provider 06/28/22 1423 zinc oxide 20 % ointment Active Iwona Chu, 06/21/22 1248 DRESSING CARE (SPECIFY) ([place]) Routine Active Fidel Carmen APRN.CLEAN ROOM TECHNICIAN - Specify:: Apply allevyn foam to coccyx, peel down every shift to assess skin and to apply zinc oxide, change every 3 days or if soiled. 06/21/22 1248 zinc oxide 20 % Active Fidel Carmen APRN.CLEAN ROOM TECHNICIAN Wound 06/16/22 Incision Knee Left;Posterior (Active) Assessments 06/29/2022 10:27 AM Wound Image Site Assessment Dry;Intact Allie-Wound Assessment Intact Closure Sutures Drainage Amount None Treatments Open to Air No Linked orders to display Wound 06/21/22 0948 Atypical Wound Finger (Comment which one) Right (Active) Assessments 06/29/2022 10:23 AM Wound Image Site Assessment Red;Poth Allie-Wound Assessment Intact Wound Length (cm) 2 cm Wound Width (cm) 2.5 cm Wound Surface Area (cm2) 5 cm2 Wound Depth (cm) 0.1 cm Wound Volume (cm3) 0.5 (more content not included)... Normal [facility] NUTRITIONon 12-13-2022 NUTRITION HNO ID: [id number] Author: Iwona Pelayo RD Service: Nutrition Therapy Author Type: Registered Dietitian Type: Nutrition Filed: 06/29/2022 1:38 PM Note Text: NUTRITION THERAPY PROGRESS NOTE SERVICE DATE: 06/29/2022 SERVICE TIME: 13:30 Nutrition Assessment: Recommended Malnutrition Diagnosis: No Malnutrition Identified (06/23/22 1109 : Parul Mcallister RD) Estimated kilocalorie needs: 9270-3267 Calorie Calculation Method: 25-30 kcals/kg Estimated protein [...] 2022 TIME: 10:17 AM Normal [facility] PT EDon 06-29-2022 PT ED HNO ID: [id number] Author: Joana Tolbert [facility] Service: Pharmacy Author Type: Pharmacist Type: Patient [...] information Outcomes not met: N/A Joana Tolbert [facility] Normal [facility] CNDSon 06-28-2022 [facility] HNO ID: [id number] Author: Iwona Chu DO Service: Hospital Medicine [...] micropuncture needle and serially upsized to a 5-[place] Islander sheath. A venogram was then performed, which [...] time, the sheath was upsized to an 8-[place] Islander sheath. An intravascular ultrasound was performed. This [...] (more content not included)... Normal [facility] NURSING PROGon 06-28-2022 NURSING PROG HNO ID: [id number] Author: John Castro RN Service: Nursing Author Type: Registered Nurse Type: Nursing Progress Note Filed: 06/28/2022 2:28 PM Note Text: Other: Ambulatory pulse ox per Dr. Chu SpO2 on Room air at rest: 91% SpO2 while ambulating on Room air: 83% SpO2 while ambulating on 2 liters of oxygen: 91% Normal [facility] Bacteria Spec Resp Culton Bacteria identified Respiratory culture Nom (Unsp spec) CULTURE, RESPIRATORY: Few Normal respiratory radha present ORGANISM ID: 1 Few Lactose fermenting gram negative rods Insignificant colony count. No further workup. GRAM STAIN: Rare Gram positive cocci Few Polymorphonuclear leukocytes Few Epithelial cells Abnormal [facility] Comment on above: Performed By: #### 3 2355-0 #### [facility] CLIA [id number] [address] [place] CONSULT PROGon 06-25-2022 CONSULT PROG HNO ID: [id number] Author: Cirilo Yip RPh Service: Pharmacy Author Type: Pharmacist Type: Consult Progress Note Filed: 06/25/2022 1:49 PM Note Text: PHARMACY ORAL ANTICOAGULATION PATIENT EDUCATION NOTE Oral anticoagulant: apixaban Indication: DVT/PE Patient New to medication: Yes LEARNERS Persons Present: Patient Primary Learner: Patient Electronics Instructor Present: No Patient educated on the followin. [...] 2022 TIME: 1:48 PM Normal [facility] Bacteria Spec Resp Culton Bacteria identified Respiratory culture Nom (Unsp spec) CULTURE, RESPIRATORY: Moderate Normal respiratory radha present GRAM STAIN: Moderate Mixed oral radha Few Polymorphonuclear leukocytes Few Epithelial cells Abnormal [facility] Comment on above: Performed By: #### 3 2355-0 ####[facility] LABORATORYCLIA [id number] [address] [place] Basic metabolic 2000 panelon 06-24-2022 Anion gap [Moles/Vol] 10 mmol/L Normal 9-18 [facility] Comment on above: Order Comment: Speci men Type: BLOOD SPECIMENOrdering Facility: [facility] Address: [address] [place] [address] Performed By: #### 2 4321-2, 95168-4 ####[facility]ORATORYCLIA [id number] [place] [address] [place] Calcium [Mass/Vol] 9.0 mg/dL Normal 8.5-10.2 [facility] Comment on above: Order Comment: Speci men Type: BLOOD SPECIMENOrdering Facility: [facility] Address: [address] [place] [address] Performed By: #### 2 4321-2, 16406-1 ####[facility] LABORATORYCLIA [id number] [place] [address] [place] Chloride [Moles/Vol] 103 mmol/L Normal 97-105 [facility] Comment on above: Order Comment: Speci men Type: BLOOD SPECIMENOrdering Facility: [facility] Address: [address] [place] [address] Performed By: #### 2 4321-2, 86676-1 ####[facility] LABORATORYCLIA [id number] [place] [address] [place] CO2 [Moles/Vol] 23 mmol/L Normal 22-30 [facility] Comment on above: Order Comment: Speci men Type: BLOOD SPECIMENOrdering Facility: [facility] Address: [address] [place] [address] Performed By: #### 2 4321-2, 94033-9 ####[facility] LABORATORYCLIA [id number] [place] [address] [place] Creatinine [Mass/Vol] 0.73 mg/dL Normal 0.58-0.96 [facility] Comment on above: Order Comment: Speci men Type: BLOOD SPECIMENOrdering Facility: [facility] Address: [address] [place] [address] Performed By: #### 2 4321-2, 73336-3 ####[facility] LABORATORYCLIA [id number] [place] [address] [place] ESTIMATED GLOMERULAR FILTRATION RATE 82 mL/min/1.73m??? Normal >=60 [facility] Comment on above: Order Comment: Rhina mason Type: BLOOD SPECIMENOrdering Facility: [facility] Address: [address] [place] [address] Result Comment: Isa mated Glomerular Filtration Rate [...] actual GFR. Performed By: #### 2 4321-2, 03362-2 ####[facility] LABORATORYIA [id number] [place] [address] [place] Glucose [Mass/Vol] 165 mg/dL High 74-99 [facility] Comment on above: Order Comment: Rhina isabella Type: BLOOD SPECIMENOrdering Facility: [facility] Address: [address] [place] [address] Result Comment: The [place] Diabetes Association (ADA) provides guidance for cutoff [...] Standards of Medical Care in Diabetes 2016, [place] Diabetes Association. Diabetes Care. 2016.39(Suppl 1). Performed By: #### 2 4321-2, 27714-9 ####[facility] LABORATORYCLIA [id number] [place] [id number] [place] Potassium [Moles/Vol] 5.0 mmol/L Normal 3.7-5.1 [facility] Comment on above: Order Comment: Speci men Type: BLOOD SPECIMENOrdering Facility: [facility] Address: [address] [place] [address] Performed By: #### 2 4321-2, 90580-5 ####[facility] LABORATORYCLIA [id number] [address] [place] [facility] Sodium [Moles/Vol] 136 mmol/L Normal 136-144 [facility] Comment on above: Order Comment: Speci men Type: BLOOD SPECIMENOrdering Facility: [facility] Address: [address] [place] [address] Performed By: #### 2 4321-2, 47102-7 ####[facility] LABORATORYCLIA [id number] [address] Urea nitrogen [Mass/Vol] 14 mg/dL Normal 7-21 [facility] Comment on above: Order Comment: Speci men Type: BLOOD SPECIMENOrdering Facility: [facility] Address: [address] [place] [address] Performed By: #### 2 4321-2, 09955-5 ####[facility] LABORATORYCLIA [id number] [address] CBC panel Auto (Bld)on 06-24 Erythrocyte distribution width (RBC) [Ratio] 17.0 % High 11.5-15.0 [facility] Comment on above: Order Comment: Speci men Type: BLOOD SPECIMENOrdering Facility: [facility] Address: [address] [place] [place] [address] Performed By: #### 5 8410-2 ####[facility] LABORATORYCLIA [id number] [address] Hematocrit (Bld) [Volume fraction] 27.2 % Low 36.0-46.0 [facility] Comment on above: Order Comment: Speci men Type: BLOOD SPECIMENOrdering Facility: [facility] Address: [address] [place] [address] Performed By: #### 5 8410-2 ####[facility] LABORATORYCLIA [id number] [address] Hemoglobin (Bld) [Mass/Vol] 8.9 g/dL Low 11.5-15.5 [facility] Comment on above: Order Comment: Speci men Type: BLOOD SPECIMENOrdering Facility: [facility] Address: [address] [place] [address] Performed By: #### 5 8410-2 ####[facility] LABORATORYCLIA [id number] [address] MCH (RBC) [Entitic mass] 30.9 pg Normal 26.0-34.0 [facility] Comment on above: Order Comment: Speci men Type: BLOOD SPECIMENOrdering Facility: [facility] Address: [address] [place] [address] Performed By: #### 5 8410-2 ####[facility] LABORATORYCLIA [id number] [address] MCHC (RBC) [Mass/Vol] 32.7 g/dL Normal 30.5-36.0 [facility] Comment on above: Order Comment: Speci men Type: BLOOD SPECIMENOrdering Facility: [facility] Address: [address] [place] [address] Performed By: #### 5 8410-2 ####[facility] LABORATORYCLIA [id number] [address] MCV (RBC) [Entitic vol] 94.4 fL Normal 80.0-100.0 [facility] Comment on above: Order Comment: Speci men Type: BLOOD SPECIMENOrdering Facility: [facility] Address: [address] [place] [address] Performed By: #### 5 8410-2 ####[facility] LABORATORYCLIA [id number] [address] Nucleated RBC (Bld) [#/Vol] 0.03 10*3/uL High <0.01 [facility] Comment on above: Order Comment: Speci men Type: BLOOD SPECIMENOrdering Facility: [facility] Address: [address] [place] [address] Performed By: #### 5 8410-2 ####[facility] LABORATORYCLIA [id number] [place] [address] [place] Platelet mean volume (Bld) [Entitic vol] 9.8 fL Normal 9.0-12.7 [facility] Comment on above: Order Comment: Speci men Type: BLOOD SPECIMENOrdering Facility: [facility] Address: [address] [place] [address] Performed By: #### 5 8410-2 ####[facility] LABORATORYCLIA [id number] [place] [address] [place] Platelets (Bld) [#/Vol] 241 10*3/uL Normal 150-400 [facility] Comment on above: Order Comment: Speci men Type: BLOOD SPECIMENOrdering Facility: [facility] Address: [address] [address] Performed By: #### 5 8410-2 ####[facility] LABORATORYCLIA [id number] [place] [address] [place] RBC (Bld) [#/Vol] 2.88 10*6/uL Low 3.90-5.20 [facility] Comment on above: Order Comment: Speci men Type: BLOOD SPECIMENOrdering Facility: [facility] Address: [address] [place] [address] Performed By: #### 5 8410-2 ####[facility] LABORATORYCLIA [id number] [place] [address] [place] WBC (Bld) [#/Vol] 6.37 10*3/uL Normal 3.70-11.00 [facility] Comment on above: Order Comment: Speci men Type: BLOOD SPECIMENOrdering Facility: [facility] Address: [address] [place] [address] Performed By: #### 5 8410-2 ####[facility] LABORATORYCLIA [id number] [address] NT-proBNP [facility] Natriuretic peptide.B prohormone N-Terminal [Mass/Vol] 2971 pg/mL High <450 [facility] Comment on above: Order Comment: Speci men Type: BLOOD SPECIMENOrdering Facility: [facility] Address: [address] [place] [address] Performed By: #### 2 4321-2, 26134-8 ####[facility] LABORATORYCLIA [id number] [address] aPTT PPPon 06-24-2022 aPTT Coag (PPP) [Time] 64.2 s High 23.0-32.4 [facility] Comment on above: Order Comment: Speci men Type: BLOOD SPECIMEN [facility] Address: [address] [place] [address] Performed By: #### T SCR #### [facility] CLIA [id number] [address] aPTT Coag (PPP) [Time] 45.8 s High 23.0-32.4 [facility] Comment on above: Order Comment: Speci men Type: BLOOD SPECIMENOrdering Facility: [facility] Address: [address] [place] [address] Performed By: #### 3 2355-0 #### [facility] CLIA [id number] [address] aPTT Coag (PPP) [Time] 116.8 s High 28.5-34.0 [facility] Comment on above: Order Comment: Speci men Type: BLOOD SPECIMENOrdering Facility: [facility] Address: [address] [place] [address] Performed By: #### 1 4979-9 ####[facility] LABORATORYCLIA [id number] [address] ALLIED HEALTHon 06-23-2022 ALLIED HEALTH HNO ID: [id number] Author: Mikel Coronado RT(R) Service: Radiology Author [...] Lali(R) June 23, 2022 9:41 PM Normal [facility] CBC panel Auto (Bld)on 06-23 Erythrocyte distribution width (RBC) [Ratio] 16.6 % High 11.5-15.0 [facility] Comment on above: Order Comment: Speci men Type: BLOOD SPECIMENOrdering Facility: [facility] Address: [address] [place] [address] Performed By: #### 5 8410-2 ####[facility] LABORATORYCLIA [id number] [address] [place] Hematocrit (Bld) [Volume fraction] 29.6 % Low 36.0-46.0 [facility] Comment on above: Order Comment: Speci men Type: BLOOD SPECIMENOrdering Facility: [facility] Address: [address] [place] [address] Performed By: #### 5 8410-2 ####[facility] LABORATORYCLIA [id number] [place] [address] [place] Hemoglobin (Bld) [Mass/Vol] 9.5 g/dL Low 11.5-15.5 [facility] Comment on above: Order Comment: Speci men Type: BLOOD SPECIMENOrdering Facility: [facility] Address: [address] [address] Performed By: #### 5 8410-2 ####[facility] LABORATORYCLIA [id number] [address] MCH (RBC) [Entitic mass] 30.4 pg Normal 26.0-34.0 [facility] Comment on above: Order Comment: Speci men Type: BLOOD SPECIMENOrdering Facility: [facility] Address: [address] [address] Performed By: #### 5 8410-2 ####[facility] LABORATORYCLIA [id number] [address] MCHC (RBC) [Mass/Vol] 32.1 g/dL Normal 30.5-36.0 [facility] Comment on above: Order Comment: Speci men Type: BLOOD SPECIMENOrdering Facility: [facility] Address: [address] [address] Performed By: #### 5 8410-2 ####[facility] LABORATORYCLIA [id number] [address] MCV (RBC) [Entitic vol] 94.6 fL Normal 80.0-100.0 [facility] Comment on above: Order Comment: Speci men Type: BLOOD SPECIMENOrdering Facility: [facility] Address: [address] [address] Performed By: #### 5 8410-2 ####[facility] LABORATORYCLIA [id number] [address] Nucleated RBC (Bld) [#/Vol] 0.07 10*3/uL High <0.01 [facility] Comment on above: Order Comment: Speci men Type: BLOOD SPECIMENOrdering Facility: [facility] Address: [address] [place] [address] Performed By: #### 5 8410-2 ####[facility] LABORATORYCLIA [id number] [address] Platelet mean volume (Bld) [Entitic vol] 9.9 fL Normal 9.0-12.7 [facility] Comment on above: Order Comment: Speci men Type: BLOOD SPECIMENOrdering Facility: [facility] Address: [address] [place] [address] Performed By: #### 5 8410-2 ####[facility] LABORATORYCLIA [id number] [place] [address] [place] Platelets (Bld) [#/Vol] 241 10*3/uL Normal 150-400 [facility] Comment on above: Order Comment: Speci men Type: BLOOD SPECIMENOrdering Facility: [facility] Address: [address] [place] [address] Performed By: #### 5 8410-2 ####[facility] LABORATORYCLIA [id number] [address] [place] [facility] RBC (Bld) [#/Vol] 3.13 10*6/uL Low 3.90-5.20 [facility] Comment on above: Order Comment: Speci men Type: BLOOD SPECIMENOrdering Facility: [facility] Address: [address] [place] [address] Performed By: #### 5 8410-2 ####[facility] LABORATORYCLIA [id number] [address] [place] WBC (Bld) [#/Vol] 6.86 10*3/uL Normal 3.70-11.00 [facility] Comment on above: Order Comment: Speci men Type: BLOOD SPECIMENOrdering Facility: [facility] Address: [address] [place] [address] Performed By: #### 5 8410-2 ####[facility] LABORATORYCLIA [id number] [address] NUTRITIONon 06-23-2022 NUTRITION HNO ID: [id number] Author: Parul Mcallister RD Service: Nutrition Therapy Author Type: Registered Dietitian Type: Nutrition Filed: 06/23/2022 2:28 PM Note Text: NUTRITION THERAPY INITIAL ASSESSMENT SERVICE DATE: 06/23/2022 SERVICE TIME: 11:09 AM Nutrition Assessment: Recommended Malnutrition Diagnosis: No Malnutrition Identified Nutrition Diagnosis: Problem: Suboptimal protein/energy intake Related to: Inability to consume sufficient nutrients As evidenced by: Patient/family self-report;Intake records Estimated kilocalorie needs: 6914-8667 Calorie Calculation Method: 25-30 kcals/kg Estimated protein [...] 2022 TIME: 11:09 AM Normal [facility] XR CHEST 2V FRONTAL/LATon XR CHEST [...] sites of pneumonia. Small bilateral pleural effusions. Podiatric Assistant: DEVEN Transcribe Date/Time: Jun 24 2022 6:34A Dictated by : DI MINER MD This examination was interpreted and the report reviewed and electronically signed by: DI MINER MD on Jun 24 2022 6:36AM EST [id number] Normal [facility] aPTT PPPon 06-23-2022 aPTT Coag (PPP) [Time] 46.7 s High 23.0-32.4 [facility] Comment on above: Order Comment: Speci men Type: BLOOD SPECIMENOrdering Facility: [facility] Address: [address] [place] [id number] Performed By: #### 1 4979-9 ####[facility] LABORATORYCLIA [id number] [place] [address] [place] [place] aPTT Coag (PPP) [Time] 53.8 s High 23.0-32.4 [facility] Comment on above: Order Comment: Speci men Type: BLOOD SPECIMENOrdering Facility: [facility] Address: [address] [place] [address] Performed By: #### 1 4979-9 ####[facility] LABORATORYCLIA [id number] [address] aPTT Coag (PPP) [Time] 114.5 s High 23.0-32.4 [facility] Comment on above: Order Comment: Speci men Type: BLOOD SPECIMEN [facility] Address: [address] [place] [address] Performed By: #### T SCR #### [facility] CLIA [id number] [address] CBC W Auto Differential pane l (Bld)on 06-22-2022 Basophils (Bld) [#/Vol] 0.03 10*3/uL Normal <0.11 [facility] Comment on above: Order Comment: Speci men Type: BLOOD SPECIMENOrdering Facility: [facility] Address: [address] [place] [address] Result Comment: Diff erential confirmed by visual scan of peripheral blood smear slide Performed By: #### 5 7021-8 ####[facility] LABORATORYCLIA [id number] [address] Basophils/100 WBC (Bld) 0.5 % Normal A [facility] Comment on above: Order Comment: Speci men Type: BLOOD SPECIMENOrdering Facility: [facility] Address: [address] [place] [address] Performed By: #### 5 7021-8 ####[facility] LABORATORYCLIA [id number] [address] Differential cell count method Nom (Bld) Auto Normal [facility] Comment on above: Order Comment: Speci men Type: BLOOD SPECIMENOrdering Facility: [facility] Address: [address] [place] [address] Performed By: #### 5 7021-8 ####[facility] LABORATORYCLIA [id number] [address] [place] Eosinophils (Bld) [#/Vol] 10*3/uL Normal <0.46 [facility] Comment on above: Order Comment: Speci men Type: BLOOD SPECIMENOrdering Facility: [facility] Address: [address] [place] [address] Performed By: #### 5 7021-8 ####[facility] LABORATORYCLIA [id number] [address] [place] Eosinophils/100 WBC (Bld) 0.0 % Normal [facility] Comment on above: Order Comment: Speci men Type: BLOOD SPECIMENOrdering Facility: [facility] Address: [address] [place] [address] Performed By: #### 5 7021-8 ####[facility] LABORATORYCLIA [id number] [address] [place] Erythrocyte distribution width (RBC) [Ratio] 16.2 % High 11.5-15.0 [facility] Comment on above: Order Comment: Speci men Type: BLOOD SPECIMENOrdering Facility: [facility] Address: [address] [place] [address] Performed By: #### 5 7021-8 ####[facility] LABORATORYCLIA [id number] [address] [place] Hematocrit (Bld) [Volume fraction] 25.1 % Low 36.0-46.0 [facility] Comment on above: Order Comment: Speci men Type: BLOOD SPECIMENOrdering Facility: [facility] Address: [address] [place] [address] Performed By: #### 5 7021-8 ####[facility] LABORATORYCLIA [id number] [address] [place] Hemoglobin (Bld) [Mass/Vol] 8.4 g/dL Low 11.5-15.5 [facility] Comment on above: Order Comment: Speci men Type: BLOOD SPECIMENOrdering Facility: [facility] Address: [address] [place] [address] Performed By: #### 5 7021-8 ####[facility] LABORATORYCLIA [id number] [address] STATES [facility] Immature granulocytes (Bld) [#/Vol] 0.60 10*3/uL High <0.10 [facility] Comment on above: Order Comment: Speci men Type: BLOOD SPECIMENOrdering Facility: [facility] Address: [address] [place] [address] Performed By: #### 5 7021-8 ####[facility] LABORATORYCLIA [id number] [address] Immature granulocytes/100 WBC (Bld) 10.3 % Normal [facility] Comment on above: Order Comment: Speci men Type: BLOOD SPECIMENOrdering Facility: [facility] Address: [address] [place] [address] Performed By: #### 5 7021-8 ####[facility] LABORATORYCLIA [id number] [address] Lymphocytes (Bld) [#/Vol] 1.38 10*3/uL Normal 1.00-4.00 [facility] Comment on above: Order Comment: Speci men Type: BLOOD SPECIMENOrdering Facility: [facility] Address: [address] [place] [address] Performed By: #### 5 7021-8 ####[facility] LABORATORYCLIA [id number] [address] Lymphocytes/100 WBC (Bld) 23.7 % Normal [facility] Comment on above: Order Comment: Speci men Type: BLOOD SPECIMENOrdering Facility: [facility] Address: [address] [place] [address] Performed By: #### 5 7021-8 ####[facility] LABORATORYCLIA [id number] [address] [place] MCH (RBC) [Entitic mass] 31.2 pg Normal 26.0-34.0 [facility] Comment on above: Order Comment: Speci men Type: BLOOD SPECIMENOrdering Facility: [facility] Address: [address] [place] [address] Performed By: #### 5 7021-8 ####[facility] LABORATORYCLIA [id number] [address] MCHC (RBC) [Mass/Vol] 33.5 g/dL Normal 30.5-36.0 [facility] Comment on above: Order Comment: Speci men Type: BLOOD SPECIMENOrdering Facility: [facility] Address: [address] [place] [address] Performed By: #### 5 7021-8 ####[facility] LABORATORYCLIA [id number] [address] MCV (RBC) [Entitic vol] 93.3 fL Normal 80.0-100.0 [facility] Comment on above: Order Comment: Speci men Type: BLOOD SPECIMENOrdering Facility: [facility] Address: [address] [place] [address] Performed By: #### 5 7021-8 ####[facility] LABORATORYCLIA [id number] [address] Monocytes (Bld) [#/Vol] 0.50 10*3/uL Normal <0.87 [facility] Comment on above: Order Comment: Speci men Type: BLOOD SPECIMENOrdering Facility: [facility] Address: [address] [place] [address] Performed By: #### 5 7021-8 ####[facility] LABORATORYCLIA [id number] [address] Monocytes/100 WBC (Bld) 8.6 % Normal A [facility] Comment on above: Order Comment: Speci men Type: BLOOD SPECIMENOrdering Facility: [facility] Address: [address] [place] [address] Performed By: #### 5 7021-8 ####[facility] LABORATORYCLIA [id number] [place] [address] [place] Neutrophils (Bld) [#/Vol] 3.31 10*3/uL Normal 1.45-7.50 [facility] Comment on above: Order Comment: Speci men Type: BLOOD SPECIMENOrdering Facility: [facility] Address: [address] [place] [address] Performed By: #### 5 7021-8 ####[facility] LABORATORYCLIA [id number] [address] [place] Neutrophils/100 WBC (Bld) 56.9 % Normal [facility] Comment on above: Order Comment: Speci men Type: BLOOD SPECIMENOrdering Facility: [facility] Address: [address] [place] [address] Performed By: #### 5 7021-8 ####[facility] LABORATORYCLIA [id number] [address] [place] Nucleated RBC (Bld) [#/Vol] 0.10 10*3/uL High <0.01 [facility] Comment on above: Order Comment: Speci men Type: BLOOD SPECIMENOrdering Facility: [facility] Address: [address] [place] [address] Performed By: #### 5 7021-8 ####[facility] LABORATORYCLIA [id number] [address] [place] Nucleated RBC/100 WBC (Bld) [Ratio] 1.7 /100 WBC Normal [facility] Comment on above: Order Comment: Speci men Type: BLOOD SPECIMENOrdering Facility: [facility] Address: [address] [place] [address] Performed By: #### 5 7021-8 ####[facility] LABORATORYCLIA [id number] [address] [place] Platelet mean volume (Bld) [Entitic vol] 9.7 fL Normal 9.0-12.7 [facility] Comment on above: Order Comment: Speci men Type: BLOOD SPECIMENOrdering Facility: [facility] Address: [address] [place] [address] Performed By: #### 5 7021-8 ####[facility] LABORATORYCLIA [id number] [address] OF [facility] Platelets (Bld) [#/Vol] 209 10*3/uL Normal 150-400 [facility] Comment on above: Order Comment: Speci men Type: BLOOD SPECIMENOrdering Facility: [facility] Address: [address] [place] [address] Performed By: #### 5 7021-8 ####[facility] LABORATORYCLIA [id number] [address] OF [facility] RBC (Bld) [#/Vol] 2.69 10*6/uL Low 3.90-5.20 [facility] Comment on above: Order Comment: Speci men Type: BLOOD SPECIMENOrdering Facility: [facility] Address: [address] [place] [address] Performed By: #### 5 7021-8 ####[facility] LABORATORYCLIA [id number] [address] WBC (Bld) [#/Vol] 5.82 10*3/uL Normal 3.70-11.00 [facility] Comment on above: Order Comment: Speci men Type: BLOOD SPECIMENOrdering Facility: [facility] Address: [address] [place] [address] Performed By: #### 5 7021-8 ####[facility] LABORATORYCLIA [id number] [address] CONSULT PROGon 06-22-2022 CONSULT PROG HNO ID: [id number] Author: Eliza Martin APRN.VIDEO GAME TESTER Service: Gastroenterology Author Type: Nurse Specialist Type: [...] (more content not included)... Normal [facility] Comprehensive metabolic 2000 panelon 06-22-2022 Albumin [Mass/Vol] 2.4 g/dL Low 3.9-4.9 [facility] Comment on above: Order Comment: Rhina mason Type: BLOOD SPECIMENOrdering Facility: [facility] Address: [address] [address] Performed By: #### 2 4323-8 ####[facility] LABORATORYCLIA [id number] [address] [place] ALP [Catalytic activity/Vol] 129 U/L High 34-123 [facility] Comment on above: Order Comment: Rhina mason Type: BLOOD SPECIMENOrdering Facility: [facility] Address: [address] [address] Performed By: #### 2 4323-8 ####[facility] LABORATORYCLIA [id number] [place] [address] [place] ALT With P-5'-P [Catalytic activity/Vol] 21 U/L Normal 7-38 [facility] Comment on above: Order Comment: Rhina mason Type: BLOOD SPECIMENOrdering Facility: [facility] Address: [address] [address] Performed By: #### 2 4323-8 ####[facility] LABORATORYCLIA [id number] [place] [address] [place] Anion gap [Moles/Vol] 10 mmol/L Normal 9-18 [facility] Comment on above: Order Comment: Speci men Type: BLOOD SPECIMENOrdering Facility: [facility] Address: [address] [place] [address] Performed By: #### 2 4323-8 ####[facility] LABORATORYCLIA [id number] [place] [address] [place] AST With P-5'-P [Catalytic activity/Vol] 19 U/L Normal 13-35 [facility] Comment on above: Order Comment: Speci men Type: BLOOD SPECIMENOrdering Facility: [facility] Address: [address] [place] [address] Performed By: #### 2 4323-8 ####[facility] LABORATORYCLIA [id number] [place] [address] [place] Bilirubin [Mass/Vol] 0.6 mg/dL Normal 0.2-1.3 [facility] Comment on above: Order Comment: Speci men Type: BLOOD SPECIMENOrdering Facility: [facility] Address: [address] [place] [address] Performed By: #### 2 4323-8 ####[facility] LABORATORYCLIA [id number] [address] [place] Calcium [Mass/Vol] 8.6 mg/dL Normal 8.5-10.2 [facility] Comment on above: Order Comment: Speci men Type: BLOOD SPECIMENOrdering Facility: [facility] Address: [address] [place] [address] Performed By: #### 2 4323-8 ####[facility] LABORATORYCLIA [id number] [place] [address] [place] Chloride [Moles/Vol] 105 mmol/L Normal 97-105 [facility] Comment on above: Order Comment: Speci men Type: BLOOD SPECIMENOrdering Facility: [facility] Address: [address] [place] [address] Performed By: #### 2 4323-8 ####[facility] LABORATORYCLIA [id number] [address] STATES OF [facility] CO2 [Moles/Vol] 21 mmol/L Low 22-30 [facility] Comment on above: Order Comment: Speci men Type: BLOOD SPECIMENOrdering Facility: [facility] Address: [address] [place] [address] Performed By: #### 2 4323-8 ####[facility] LABORATORYCLIA [id number] [address] OF [facility] Creatinine [Mass/Vol] 0.88 mg/dL Normal 0.58-0.96 [facility] Comment on above: Order Comment: Speci men Type: BLOOD SPECIMENOrdering Facility: [facility] Address: [address] [place] [address] Performed By: #### 2 4323-8 ####[facility] LABORATORYCLIA [id number] [address] ESTIMATED GLOMERULAR FILTRATION RATE 66 mL/min/1.73m??? Normal >=60 [facility] Comment on above: Order Comment: Speci men Type: BLOOD SPECIMENOrdering Facility: [facility] Address: [address] [place] [address] Result Comment: Isa mated Glomerular Filtration Rate [...] actual GFR. Performed By: #### 2 4323-8 ####[facility] LABORATORYCLIA [id number] [address] OF [facility] Glucose [Mass/Vol] 95 mg/dL Normal 74-99 [facility] Comment on above: Order Comment: Speci men Type: BLOOD SPECIMENOrdering Facility: [facility] Address: [address] [address] Result Comment: The [place] [employer] (ADA) provides guidance for cutoff [...] Standards of Medical Care in Diabetes 2016, [place] [employer]. Diabetes Care. 2016.39(Suppl 1). Performed By: #### 2 4323-8 ####[facility] LABORATORYCLIA [id number] [place] [address] [place] Potassium [Moles/Vol] 4.7 mmol/L Normal 3.7-5.1 [facility] Comment on above: Order Comment: Speci men Type: BLOOD SPECIMENOrdering Facility: [facility] Address: [address] [place] [address] Performed By: #### 2 4323-8 ####[facility] LABORATORYCLIA [id number] [place] [address] [place] Protein [Mass/Vol] 5.3 g/dL Low 6.3-8.0 [facility] Comment on above: Order Comment: Speci men Type: BLOOD SPECIMENOrdering Facility: [facility] Address: [address] [address] Performed By: #### 2 4323-8 ####[facility] LABORATORYCLIA [id number] [place] [address] [place] Sodium [Moles/Vol] 136 mmol/L Normal 136-144 [facility] Comment on above: Order Comment: Speci men Type: BLOOD SPECIMENOrdering Facility: [facility] Address: [address] [address] Performed By: #### 2 4323-8 ####[facility] LABORATORYCLIA [id number] [place] [address] [place] Urea nitrogen [Mass/Vol] 7 mg/dL Normal 7-21 [facility] Comment on above: Order Comment: Rhina mason Type: BLOOD SPECIMENOrdering Facility: [facility] Address: [address] [place] [address] Performed By: #### 2 4323-8 ####[facility] LABORATORYCLIA [id number] [address] [place] H. pylori IgG IA Qlon 2021 H. PYLORI IGG, QUAL Negative Normal Negative [facility] Comment on above: Order Comment: Rhina mason Type: BLOOD SPECIMENOrdering Facility: [facility] Address: [address] [place] [address] Result Comment: Shakeel ot exclude H. pylori infection if the specimen collected 3-4 weeks after onset of symptoms. Performed By: #### 1 7859-0 ####[facility] LABCLIA [id number] [address] [place] PT panel Coag (PPP)on 2021 INR Coag (PPP) [Relative time] {INR} Low 0.9-1.3 [facility] Comment on above: Order Comment: Rhina mason Type: BLOOD SPECIMEN [facility] Address: [address] [place] [address] Result Comment: Mayra min K Antagonist (VKA) Therapeutic Range: INR 2 to 3 (Target INR of 2.5) Note: For patients treated with VKA drugs, such as warfarin, the [place] [employer] 2012 Guideline recommends [...] Chest 2012, 141:7S-47S Daren RA, et al. [facility] 2017, 70: 252-289 Performed By: #### T SCR #### [facility] B[facility] CLIA [id number] [address] PT Coag (PPP) [Time] 9.9 s Normal 9.7-13.0 [facility] Comment on above: Order Comment: Speci men Type: BLOOD SPECIMEN [facility] Address: [address] [place], [place] [id number] Performed By: #### T SCR #### [facility] BLOOD [facility] CLIA [id number] [address] [id number] [facility] THERAPY NTon 06-22-2022 THERAPY NT HNO ID: [id number] Author: MAMIE Mortensen/Weston Service: Occupational Therapy Author Type: Occupational Therapist Type: Therapy (PT/OT/Speech/Resp) Filed: 06/22/2022 11:27 AM Note Text: Occupational Therapy Evaluation SERVICE DATE: 06/22/2022 SERVICE TIME: 1037 to 1105 ROOM: [place] [address] Recommended Discharge Disposition: Subacute/SNF Recommended Discharge Disposition [...] time Occupational Factors Life Roles: Retired;Parent;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 Normal [facility] US ARTERIAL PVR LOWERon 12-0 US ARTERIAL PVR LOWER * * *Final Report* * * DATE OF EXAM: Jun 22 2022 7:43AM A2U 1107 - US ARTERIAL PVR LOWER / PROCEDURE REASON: Arterial embolism * * * * Physician Interpretation * * * * Non-Invasive Vascular Laboratory [facility] Lower Extremity Arterial Physiology Study Bilateral/Complete Date of service/time: 06/22/2022 7:12:00 AM [facility] MEL CASTILLO Date of : [...] all veins 06/16/22. Dopplers study was done. 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 Technologist: Azar Holcomb S Ordering physician: DWAYNE ZAIDI Interpreting physician: Supriya Ponce MD Final (Updated) RP Podiatric Assistant: IRENE Transcribe Date/Time: Jun 22 2022 7:12A Dictated by : SUPRIYA PONCE MD This examination was interpreted and the report reviewed and electronically signed by: SUPRIYA PONCE MD on Jun 24 2022 1:27PM EST [id number] Normal [facility] aPTT PPPon 06-22-2022 aPTT Coag (PPP) [Time] 43.0 s High 23.0-32.4 [facility] Comment on above: Order Comment: Speci isabella Type: BLOOD SPECIMENOrdering Facility: [facility] Address: [address] [place] [address] Performed By: #### 1 4979-9 ####[facility] LABORATORYCLIA [id number] [address] aPTT Coag (PPP) [Time] 25.6 s Normal 23.0-32.4 [facility] Comment on above: Order Comment: Speci men Type: BLOOD SPECIMEN [facility] Address: [address] [place] [address] Performed By: #### T SCR #### [facility] BLOOD BANK CLIA [id number] [address] [place] ANES POSTPROC EVALon 022 ANES POSTPROC EVAL HNO ID: [id number] Author: Oul Vasquez MD Service: Anesthesiology Author Type: Physician Type: Anesthesia Postprocedure Evaluation Filed: 06/21/2022 3:20 PM Note Text: POST ANESTHESIA EVALUATION NOTE : 1940 Procedure Summary Date: 06/21/22 Room / Location: [facility] Anesthesia Start: 1134 Anesthesia Stop: [...] June 21, 2022 TIME: 3:19 PM CSN: [id number] [facility] ANES PRE-OPon 06-21-2022 ANES PRE-OP HNO ID: [id number] Author: Olu Vasquez MD Service: Anesthesiology Author [...] of 06/21/2022 Medication Dose Route Frequency - [SEP Hold due to Transfer] zinc oxide 20 % TOPICAL PRN - [SEP Hold due to Transfer] lactobacillus rhamnosus 10 billion cell (CULTURELLE) capsule 1 capsule ORAL DAILY - [SEP Hold due to Transfer] diphenoxylate-atropine 2.5-0.025 mg [...] (more content not included)... Normal [facility] CONSULT PROGon 06-21-2022 CONSULT PROG HNO ID: [id number] Author: Fidel Carmen APRN.CLEAN ROOM TECHNICIAN Service: Wound/Ostomy Author Type: Nurse Practitioner Type: Consult Progress Note Filed: 06/21/2022 1:41 PM Note Text: WOUND CARE SERVICE CONSULT MARKETING STRATEGY LEAD NOTE SERVICE DATE: 06/21/2022 SERVICE TIME: 941 TIME SPENT (minutes): 30 REASON FOR CONSULT: MAD buttocks, atypical wound Right middle finger. CHIEF COMPLAINT: Right middle finger Subjective HISTORY OF PRESENT ILLNESS: Ms. Kiesha Castillo is a 81 year old female who is seen today with Delia Bruno, Wound/energy director, and presented to hospital with complaints [...] 06/21/2022 9:57 AM Wound Image Site Assessment Poth;Red (small open area noted) Allie-Wound Assessment Poth;Intact Drainage Amount None Odor None Treatments Cleansed;Protective Barrier Ointment Dressing Foam- Adhesive Dressing Changed Changed Dressing Status Clean;Dry;Intact Active Orders Date Order Priority Status Authorizing Provider 06/21/22 1248 DRESSING CARE (SPECIFY) ([place]) Routine Active Fidel Carmen APRN.CLEAN ROOM TECHNICIAN - Specify:: Apply allevyn foam to coccyx, peel down every shift to assess skin and to apply zinc oxide, change every 3 days or if soiled. 06/21/22 1248 zinc oxide 20 % Active Fidel Carmen APRN.CLEAN ROOM TECHNICIAN Wound 06/21/22 0948 Atypical Wound Finger (Comment which one) Right (Active) Assessments 06/21/2022 9:48 AM Wound Image Site Assessment Poth;White (shiney) Allie-Wound Assessment Intact Shape irregular Drainage Description Sanguineous (intermittent, per pt.) Drainage Amount None Odor None Treatments Cleansed Dressing Xeroform;Gauze (more content not included)... Normal [facility] Hgb Bld-mCncon 06-21-2022 Hemoglobin (Bld) [Mass/Vol] 6.9 g/dL Low 11.5-15.5 [facility] Comment on above: Order Comment: Speci men Type: BLOOD SPECIMENOrdering Facility: [facility] Address: [address] [place] [id number] Performed By: #### 3 2355-0 #### [facility] [id number] [address] STATES OF [facility] OPERATIVE NOon 06-21-2022 OPERATIVE NO HNO ID: [id number] Author: Sim Elizabeth MD Service: Gastroenterology Author Type: Physician Type: Operative Report Filed: 06/21/2022 12:01 PM Note Text: OPERATIVE/PROCEDURE REPORT LOG ID: [id number] Surgery/Procedure Date: 06/21/2022 Incision/Procedure Start Time: 11:44 AM Incision Close/Procedure End Time: 11:49 AM Surgeon(s)/Proceduralis t(s) and Shuttler(s): Surgeon(s) and Role: * Sim Elizabeth MD [...] 21, 2022 TIME: 11:53 AM PAGER/CONTACT #: [phone] Normal [facility] THERAPY NTon 06-21-2022 THERAPY NT HNO ID: [id number] Author: Miranda Burroughs PT Service: Physical Therapy Author Type: Physical Therapist Type: Therapy (PT/OT/Speech/Resp) Filed: 06/21/2022 10:12 AM Note Text: Physical Therapy Evaluation SERVICE DATE: 06/21/2022 SERVICE TIME: 831 to 854 ROOM: [place] [address] Recommended Discharge Disposition: Subacute/SNF Recommended Discharge Disposition [...] Available: PRN (someone can drive her to [employer]; someone drops off food as they are [...] Jenni decreased;Flexed trunk posture;Antalgic gait;Step length decreased [facility] 5: Standing (1 or more minutes) Learning/Educational [...] gait and mobility-other Interventions Provided: Evaluation;Therapeutic Activity (17572) $ Evaluation-Moderate (50610) Billed Units: 1 unit Therapeutic Activity (60184) Treatment Minutes: 8 $ Therapeutic Activity (42153) Billed Units: 1 unit Educated pt on [...] (more content not included)... Normal [facility] TYPE + SCREENon 06-21-2022 ABO AB Normal [facility] Comment on above: Order Comment: Speci men Type: BLOOD SPECIMEN Ordering Facility: [facility] Address: [address] [place] [address] Performed By: #### T SCR #### [facility] CLIA [id number] [address] HISTORICAL AB SCR STATUS Negative [facility] Comment on above: Order Comment: Speci men Type: BLOOD SPECIMEN Ordering Facility: [facility] Address: [address] [place] [address] Performed By: #### T SCR #### [facility] CLIA [id number] [address] Rh Nom (Bld) Positive [facility] Comment on above: Order Comment: Speci men Type: BLOOD SPECIMEN Ordering Facility: [facility] Address: [address] [place] [address] Performed By: #### T SCR #### [facility] CLIA [id number] [address] TYPE AND SCREEN EXPIRATION 06/24/2022 23:59 [facility] Comment on above: Order Comment: Speci men Type: BLOOD SPECIMEN Ordering Facility: [facility] Address: [address] [place] [address] Performed By: #### T SCR #### [facility] CLIA [id number] [address] ALLIED HEALTHon 06-20-2022 ALLIED HEALTH HNO ID: [id number] Author: RT Tamica(R) Service: Radiology Author Type: [...] PERIPHERAL IV DATA: Inpatient - refer to [facility] documentation RADIOLOGY DEPARTMENT: CT; Exam(s) Completed: Abdomen/Pelvis SIGNATURE: Alyssa Trevizo RT(R) PATIENT NAME: Mel Castillo DATE: June 20, 2022 TIME: 3:15 PM Normal [facility] Basic metabolic 2000 panelon 06-20-2022 Anion gap [Moles/Vol] 8 mmol/L Low 9-18 [facility] Comment on above: Order Comment: Speci men Type: BLOOD SPECIMENOrdering Facility: [facility] Address: [address] [place] [phone] Performed By: #### 2 4321-2 ####[facility] LABORATORYCLIA [id number] [address] [place] Calcium [Mass/Vol] 8.5 mg/dL Normal 8.5-10.2 [facility] Comment on above: Order Comment: Speci men Type: BLOOD SPECIMENOrdering Facility: [facility] Address: [address] [place] [address] Performed By: #### 2 4321-2 ####[facility] LABORATORYCLIA [id number] [place] [address] [place] Chloride [Moles/Vol] 106 mmol/L High 97-105 [facility] Comment on above: Order Comment: Speci men Type: BLOOD SPECIMENOrdering Facility: [facility] Address: [address] [place] [address] Performed By: #### 2 4321-2 ####[facility] LABORATORYCLIA [id number] [address] STATES [facility] CO2 [Moles/Vol] 22 mmol/L Normal 22-30 [facility] Comment on above: Order Comment: Speci men Type: BLOOD SPECIMENOrdering Facility: [facility] Address: [address] [place] [address] Performed By: #### 2 4321-2 ####[facility] LABORATORYCLIA [id number] [address] [place] Creatinine [Mass/Vol] 0.84 mg/dL Normal 0.58-0.96 [facility] Comment on above: Order Comment: Speci men Type: BLOOD SPECIMENOrdering Facility: [facility] Address: [address] [place] [address] Performed By: #### 2 4321-2 ####[facility] LABORATORYCLIA [id number] [address] ESTIMATED GLOMERULAR FILTRATION RATE 69 mL/min/1.73m??? Normal >=60 [facility] Comment on above: Order Comment: Speci men Type: BLOOD SPECIMENOrdering Facility: [facility] Address: [address] [place] [address] Result Comment: Isa mated Glomerular Filtration Rate [...] actual GFR. Performed By: #### 2 4321-2 ####[facility] LABORATORYCLIA [id number] [place] [address] [place] Glucose [Mass/Vol] 92 mg/dL Normal 74-99 [facility] Comment on above: Order Comment: Rhina mason Type: BLOOD SPECIMENOrdering Facility: [facility] Address: [address] [place] [address] Result Comment: The [place] Diabetes Association (ADA) provides guidance for cutoff [...] Standards of Medical Care in Diabetes 2016, [place] [employer]. Diabetes Care. 2016.39(Suppl 1). Performed By: #### 2 4321-2 ####[facility] LABORATORYCLIA [id number] [place] [address] [place] Potassium [Moles/Vol] 4.7 mmol/L Normal 3.7-5.1 [facility] Comment on above: Order Comment: Rhina mason Type: BLOOD SPECIMENOrdering Facility: [facility] Address: [address] [address] Performed By: #### 2 4321-2 ####[facility] LABORATORYCLIA [id number] [place] [address] Sodium [Moles/Vol] 136 mmol/L Normal 136-144 [facility] Comment on above: Order Comment: Speci men Type: BLOOD SPECIMENOrdering Facility: [facility] Address: [address] [place] [address] Performed By: #### 2 4321-2 ####[facility] LABORATORYCLIA [id number] [address] STATES OF [facility] Urea nitrogen [Mass/Vol] 16 mg/dL Normal 7-21 [facility] Comment on above: Order Comment: Speci men Type: BLOOD SPECIMENOrdering Facility: [facility] Address: [address] [place] [address] Performed By: #### 2 4321-2 ####[facility] LABORATORYCLIA [id number] [address] OF [facility] CBC panel Auto (Bld)on 06-20 Erythrocyte distribution width (RBC) [Ratio] 15.9 % High 11.5-15.0 [facility] Comment on above: Order Comment: Speci men Type: BLOOD SPECIMENOrdering Facility: [facility] Address: [address] [place] [address] Performed By: #### 3 2355-0 #### [facility] LABORATORY CLIA [id number] [address] OF [facility] Hematocrit (Bld) [Volume fraction] 23.9 % Low 36.0-46.0 [facility] Comment on above: Order Comment: Speci men Type: BLOOD SPECIMENOrdering Facility: [facility] Address: [address] [address] Performed By: #### 3 2355-0 #### [facility] LAB[facility] CLIA [id number] [address] STATES OF [facility] Hemoglobin (Bld) [Mass/Vol] 7.8 g/dL Low 11.5-15.5 [facility] Comment on above: Order Comment: Speci men Type: BLOOD SPECIMENOrdering Facility: [facility] Address: [address] [place] [address] Performed By: #### 3 2355-0 #### [facility] LABORATORY CLIA [id number] [address] MCH (RBC) [Entitic mass] 30.7 pg Normal 26.0-34.0 [facility] Comment on above: Order Comment: Speci men Type: BLOOD SPECIMENOrdering Facility: [facility] Address: [address] [place] [address] Performed By: #### 3 2355-0 #### [facility] LAB[facility]ORY CLIA [id number] [address] MCHC (RBC) [Mass/Vol] 32.6 g/dL Normal 30.5-36.0 [facility] Comment on above: Order Comment: Speci men Type: BLOOD SPECIMENOrdering Facility: [facility] Address: [address] [place] [address] Performed By: #### 3 2355-0 #### [facility] LABOR[facility]ORY CLIA [id number] [address] MCV (RBC) [Entitic vol] 94.1 fL Normal 80.0-100.0 [facility] Comment on above: Order Comment: Speci men Type: BLOOD SPECIMENOrdering Facility: [facility] Address: [address] [place] [address] Performed By: #### 3 2355-0 #### [facility] LAB[facility]ORY CLIA [id number] [address] Nucleated RBC (Bld) [#/Vol] 0.09 10*3/uL High <0.01 [facility] Comment on above: Order Comment: Speci men Type: BLOOD SPECIMENOrdering Facility: [facility] Address: [address] [place] [address] Performed By: #### 3 2355-0 #### [facility] LAB[facility] CLIA [id number] [address] Platelet mean volume (Bld) [Entitic vol] 9.8 fL Normal 9.0-12.7 [facility] Comment on above: Order Comment: Speci men Type: BLOOD SPECIMENOrdering Facility: [facility] Address: [address] [place] [address] Performed By: #### 3 2355-0 #### [facility] LAB[facility]ORY CLIA [id number] [address] Platelets (Bld) [#/Vol] 233 10*3/uL Normal 150-400 [facility] Comment on above: Order Comment: Speci men Type: BLOOD SPECIMENOrdering Facility: [facility] Address: [address] [place] [address] Performed By: #### 3 2355-0 #### [facility] LAB[facility]ORY CLIA [id number] [address] RBC (Bld) [#/Vol] 2.54 10*6/uL Low 3.90-5.20 [facility] Comment on above: Order Comment: Speci men Type: BLOOD SPECIMENOrdering Facility: [facility] Address: [address] [place] [address] Performed By: #### 3 2355-0 #### [facility] LABORATORY CLIA [id number] [address] WBC (Bld) [#/Vol] 9.90 10*3/uL Normal 3.70-11.00 [facility] Comment on above: Order Comment: Speci men Type: BLOOD SPECIMENOrdering Facility: [facility] Address: [address] [place] [address] Performed By: #### 3 2355-0 #### [facility] LABORATORY CLIA [id number] [address] CONSULTon 06-20-2022 CONSULT HNO ID: [id number] Author: Christine Edouard MD Service: ? Author Type: Physician Type: Consults Filed: 06/20/2022 8:25 PM Note Text: GASTROENTEROLOGY CONSULT HPI: Mel Serna Kiesha Castillo is a 81 year old female [...] (more content not included)... Normal [facility] CT ABD/PEL W IVCONon 022 CT ABD/PEL W IVCON * * *Final Report* * * DATE OF EXAM: Jun 20 2022 2:57PM [facility] 0530 - CT ABD/PEL W IVCON [...] bilateral pleural effusions, larger on the right. Ceramic Tiler (topogram) images: No additional findings. IMPRESSION: Acute sigmoid diverticulitis. No evidence of perforation or diverticular abscess. Consolidation and volume loss with bronchial wall thickening in both lower lobes and right middle lobe. Small bilateral pleural effusions, larger on the right. Diffuse subcutaneous edema of the left flank extending into the thigh. Bilateral renal cortical scarring and small cysts. Atherosclerotic arterial and aortic calcifications. Podiatric Assistant: PSCYoan Transcribe Date/Time: Jun 20 2022 3:18P Dictated by : DI MAYES MD This examination was interpreted and the report reviewed and electronically signed by: DI MAYES MD on Jun 20 2022 3:24PM EST [id number] Normal [facility] Hgb Bld-mCncon 06-20-2022 Hemoglobin (Bld) [Mass/Vol] 7.0 g/dL Low 11.5-15.5 [facility] Comment on above: Order Comment: Speci men Type: BLOOD SPECIMEN Ordering Facility: [facility] Address: [address] [place], [place] [id number] Performed By: #### T SCR #### [facility] CLIA [id number] [address] [place] [address] [place] ALLIED HEALTHon 06-19-2022 ALLIED HEALTH HNO ID: [id number] Author: Parul Ryan RN Service: Infection Prevention Author Type: ? Type: Allied Health Filed: 06/19/2022 5:49 PM Note Text: INFECTION PREVENTION NOTE Admission Date: 06/16/2022 Patient meets ?COVID Resolved? criteria and isolation has been discontinued as per CDC guidance. SIGNATURE: Parul Ryan RN PATIENT NAME: Mel Castillo DATE: June 19, 2022 TIME: 5:49 PM PAGER/CONTACT #: Infection Prevention, [phone] Infection Prevention after hours/weekend pager: [phone] Normal [facility] Basic metabolic 2000 panelon 06-19-2022 Anion gap [Moles/Vol] 5 mmol/L Low 9-18 [facility] Comment on above: Order Comment: Speci men Type: BLOOD SPECIMENOrdering Facility: [facility] Address: [address] [place] [address] Performed By: #### 3 2355-0 #### [facility] LABOR[facility]ORY CLIA [id number] [address] [place] Calcium [Mass/Vol] 8.1 mg/dL Low 8.5-10.2 [facility] Comment on above: Order Comment: Speci men Type: BLOOD SPECIMENOrdering Facility: [facility] Address: [address] [place] [address] Performed By: #### 3 2355-0 #### [facility] LAB[facility] CLIA [id number] 1 [place] [address] [place] Chloride [Moles/Vol] 105 mmol/L Normal 97-105 [facility] Comment on above: Order Comment: Speci men Type: BLOOD SPECIMENOrdering Facility: [facility] Address: [address] [place] [address] Performed By: #### 3 2355-0 #### [facility] LAB[facility] CLIA [id number] 1 [place] [address] [place] CO2 [Moles/Vol] 23 mmol/L Normal 22-30 [facility] Comment on above: Order Comment: Speci men Type: BLOOD SPECIMENOrdering Facility: [facility] Address: [address] [place] [address] Performed By: #### 3 2355-0 #### [facility] CLIA [id number] 1 [place] [address] [place] Creatinine [Mass/Vol] 0.94 mg/dL Normal 0.58-0.96 [facility] Comment on above: Order Comment: Rhina mason Type: BLOOD SPECIMENOrdering Facility: [facility] Address: [address] [place] [address] Performed By: #### 3 2355-0 #### [facility] CLIA [id number] [address] [place] ESTIMATED GLOMERULAR FILTRATION RATE 61 mL/min/1.73m??? Normal >=60 [facility] Comment on above: Order Comment: Samirrobson mason Type: BLOOD SPECIMENOrdering Facility: [facility] Address: [address] [place] [address] Result Comment: Isa mated Glomerular Filtration Rate [...] 3 2355-0 #### [facility] CLIA [id number] [address] [place] [address] [place] Glucose [Mass/Vol] 115 mg/dL High 74-99 [facility] Comment on above: Order Comment: Rhina mason Type: BLOOD SPECIMENOrdering Facility: [facility] Address: [address] [place] [address] Result Comment: The [place] Diabetes Association (ADA) provides guidance for cutoff [...] Standards of Medical Care in Diabetes 2016, [place] [employer]. Diabetes Care. 2016.39(Suppl 1). Performed By: #### 3 2355-0 #### [facility] CLIA [id number] [address] STATES [facility] Potassium [Moles/Vol] 4.4 mmol/L Normal 3.7-5.1 [facility] Comment on above: Order Comment: Speci men Type: BLOOD SPECIMENOrdering Facility: [facility] Address: [address] [place] [address] Performed By: #### 3 2355-0 #### [facility] CLIA [id number] [address] STATES OF [facility] Sodium [Moles/Vol] 133 mmol/L Low 136-144 [facility] Comment on above: Order Comment: Speci men Type: BLOOD SPECIMENOrdering Facility: [facility] Address: [address] [place] [address] Performed By: #### 3 2355-0 #### [facility] CLIA [id number] [address] Urea nitrogen [Mass/Vol] 22 mg/dL High 7-21 [facility] Comment on above: Order Comment: Speci men Type: BLOOD SPECIMENOrdering Facility: [facility] Address: [address] [place] [address] Performed By: #### 3 2355-0 #### [facility] CLIA [id number] [address] CBC panel Auto (Bld)on 06-19 Erythrocyte distribution width (RBC) [Ratio] 15.6 % High 11.5-15.0 [facility] Comment on above: Order Comment: Speci men Type: BLOOD SPECIMENOrdering Facility: [facility] Address: [address] [place] [address] Performed By: #### 5 8410-2 ####[facility] LABORATORYCLIA [id number] [address] OF [facility] Hematocrit (Bld) [Volume fraction] 24.0 % Low 36.0-46.0 [facility] Comment on above: Order Comment: Speci men Type: BLOOD SPECIMENOrdering Facility: [facility] Address: [address] [place] [address] Performed By: #### 5 8410-2 ####[facility] LABORATORYCLIA [id number] [address] STATES OF [facility] Hemoglobin (Bld) [Mass/Vol] 7.6 g/dL Low 11.5-15.5 [facility] Comment on above: Order Comment: Speci men Type: BLOOD SPECIMENOrdering Facility: [facility] Address: [address] [place] [address] Performed By: #### 5 8410-2 ####[facility] LABORATORYCLIA [id number] [address] OF [facility] MCH (RBC) [Entitic mass] 29.9 pg Normal 26.0-34.0 [facility] Comment on above: Order Comment: Speci men Type: BLOOD SPECIMENOrdering Facility: [facility] Address: [address] [place] [address] Performed By: #### 5 8410-2 ####[facility] LABORATORYCLIA [id number] [address] MCHC (RBC) [Mass/Vol] 31.7 g/dL Normal 30.5-36.0 [facility] Comment on above: Order Comment: Speci men Type: BLOOD SPECIMENOrdering Facility: [facility] Address: [address] [place] [address] Performed By: #### 5 8410-2 ####[facility] LABORATORYCLIA [id number] [address] [place] MCV (RBC) [Entitic vol] 94.5 fL Normal 80.0-100.0 [facility] Comment on above: Order Comment: Speci men Type: BLOOD SPECIMENOrdering Facility: [facility] Address: [address] [place] [address] Performed By: #### 5 8410-2 ####[facility] LABORATORYCLIA [id number] [address] [place] Nucleated RBC (Bld) [#/Vol] 0.04 10*3/uL High <0.01 [facility] Comment on above: Order Comment: Speci men Type: BLOOD SPECIMENOrdering Facility: [facility] Address: [address] [place] [address] Performed By: #### 5 8410-2 ####[facility] LABORATORYCLIA [id number] [place] [address] [place] Platelet mean volume (Bld) [Entitic vol] 10.0 fL Normal 9.0-12.7 [facility] Comment on above: Order Comment: Speci men Type: BLOOD SPECIMENOrdering Facility: [facility] Address: [address] [place] [address] Performed By: #### 5 8410-2 ####[facility] LABORATORYCLIA [id number] [address] [place] Platelets (Bld) [#/Vol] 219 10*3/uL Normal 150-400 [facility] Comment on above: Order Comment: Speci men Type: BLOOD SPECIMENOrdering Facility: [facility] Address: [address] [place] [address] Performed By: #### 5 8410-2 ####[facility] LABORATORYCLIA [id number] [place] [address] [place] RBC (Bld) [#/Vol] 2.54 10*6/uL Low 3.90-5.20 [facility] Comment on above: Order Comment: Speci men Type: BLOOD SPECIMENOrdering Facility: [facility] Address: [address] [place] [address] Performed By: #### 5 8410-2 ####[facility] LABORATORYCLIA [id number] [address] [place] WBC (Bld) [#/Vol] 8.55 10*3/uL Normal 3.70-11.00 [facility] Comment on above: Order Comment: Speci men Type: BLOOD SPECIMENOrdering Facility: [facility] Address: [address] [place] [address] Performed By: #### 5 8410-2 ####[facility] LABORATORYCLIA [id number] [address] Hemoccult Stl Ql IAon 2021 Lower GI hemoglobin IA Ql (Stl) Positive Abnormal Negative [facility] Comment on above: Order Comment: Speci men Type: BLOOD SPECIMEN Ordering Facility: [facility] Address: [address] [place] [address] Performed By: #### T SCR #### [facility] CLIA [id number] [address] Hgb Bld-mCncon 06-19-2022 Hemoglobin (Bld) [Mass/Vol] 7.6 g/dL Low 11.5-15.5 [facility] Comment on above: Order Comment: Speci men Type: BLOOD SPECIMENOrdering Facility: [facility] Address: [address] [place] [address] Performed By: #### 7 18-7 ####[facility] LABORATORYCLIA [id number] [address] Magnesium SerPl-mCncon 06-19 Magnesium [Mass/Vol] 1.9 mg/dL Normal 1.7-2.3 [facility] Comment on above: Order Comment: Speci men Type: BLOOD SPECIMENOrdering Facility: [facility] Address: [address] [place] [address] Performed By: #### 3 2355-0 #### [facility] CLIA [id number] [address] OPERATIVE NOon 06-19-2022 OPERATIVE NO HNO ID: [id number] Author: Frida Rodriguez MD Service: Vascular Surgery Author Type: Physician Type: Operative Report Filed: 06/19/2022 2:59 PM Note Text: [facility] - Operative Report MEL GUADARRAMA : 1940 AGE: 81. SEX: F PATIENT TYPE: I HOSP SVC: ICU LOCATION: [facility] ATTENDING PHYSICIAN: DWAYNE ZAIDI CSN NUMBER: [id number] DATE OF SURGERY/PROCEDURE: 06/16/2022 INCISION/PROCEDURE START TIME: 5:01 PM INCISION CLOSE/PROCEDURE END TIME: 6:58 PM PREOPERATIVE DIAGNOSIS: Left lower extremity deep vein thrombosis. POSTOPERATIVE DIAGNOSIS: Left lower extremity deep vein thrombosis. SURGEON: Frida Rodriguez MD SHIPFITTER: Resident, Emanuel Hull SURGERY/PROCEDURE: Venogram with intravascular [...] micropuncture needle and serially upsized to a 5-[place] Islander sheath. A venogram was then performed, which [...] time, the sheath was upsized to an 8-[place] Islander sheath. An intravascular ultrasound was performed. This [...] unit for further monitoring. Frida Rodriguez MD LM:[id number] [facility] 06-19 Phosphate [Mass/Vol] 2.4 mg/dL Low 2.7-4.8 [facility] Comment on above: Order Comment: Speci men Type: BLOOD SPECIMENOrdering Facility: [facility] Address: [address] [place] [address] Performed By: #### 3 2355-0 #### [facility] CLIA [id number] [address] [place] aPTT PPPon 06-19-2022 aPTT Coag (PPP) [Time] 46.9 s High 23.0-32.4 [facility] Comment on above: Order Comment: Speci men Type: BLOOD SPECIMENOrdering Facility: [facility] Address: [address] [place] [address] Performed By: #### 1 4979-9 ####[facility] LABORATORYCLIA [id number] [address] STATES OF [facility] aPTT Coag (PPP) [Time] 83.8 s High 23.0-32.4 [facility] Comment on above: Order Comment: Speci men Type: BLOOD SPECIMENOrdering Facility: [facility] Address: [address] [place] [address] Performed By: #### 3 2355-0 #### [facility] CLIA [id number] [address] [place] Basic metabolic 2000 panelon 06-18-2022 Anion gap [Moles/Vol] 10 mmol/L Normal 9-18 [facility] Comment on above: Order Comment: Speci men Type: BLOOD SPECIMENOrdering Facility: [facility] Address: [address] [place] [address] Performed By: #### 2 4321-2, 96701-2, 72670-5, 2777-1 ####[facility] LABORATORYCLIA [id number] [address] [place] Calcium [Mass/Vol] 8.0 mg/dL Low 8.5-10.2 [facility] Comment on above: Order Comment: Speci men Type: BLOOD SPECIMENOrdering Facility: [facility] Address: [address] [place] [address] Performed By: #### 2 4321-2, 03048-4, , 2776-07 ####[facility] LABORATORYCLIA [id number] [place] [address] [place] Chloride [Moles/Vol] 102 mmol/L Normal 97-105 [facility] Comment on above: Order Comment: Speci men Type: BLOOD SPECIMENOrdering Facility: [facility] Address: [address] [place] [address] Performed By: #### 2 4321-2, 66521-2, , 2776-07 ####[facility] [id number] [place] [address] [place] CO2 [Moles/Vol] 21 mmol/L Low 22-30 [facility] Comment on above: Order Comment: Speci men Type: BLOOD SPECIMENOrdering Facility: [facility] Address: [address] [place] [address] Performed By: #### 2 4321-2, 61323-4, , 2776-07 ####[facility] LABORATORYCLIA [id number] [place] [address] [place] Creatinine [Mass/Vol] 1.17 mg/dL High 0.58-0.96 [facility] Comment on above: Order Comment: Speci men Type: BLOOD SPECIMENOrdering Facility: [facility] Address: [address] [place] [address] Performed By: #### 2 4321-2, 24305-2, , 2776-07 ####[facility] LABORATORYCLIA [id number] [address] [place] ESTIMATED GLOMERULAR FILTRATION RATE 47 mL/min/1.73m??? Low >=60 [facility] Comment on above: Order Comment: Speci men Type: BLOOD SPECIMENOrdering Facility: [facility] Address: [address] [phone] Result Comment: Isa mated Glomerular Filtration Rate [...] actual GFR. Performed By: #### 2 4321-2, 68684-5, , 2776-07 ####[facility]CL[facility] [id number] [place] [address] [place] Glucose [Mass/Vol] 112 mg/dL High 74-99 [facility] Comment on above: Order Comment: Speci men Type: BLOOD SPECIMENOrdering Facility: [facility] Address: [address] [address] Result Comment: The [place] Diabetes Association (ADA) provides guidance for cutoff [...] Standards of Medical Care in Diabetes 2016, [place] Diabetes Association. Diabetes Care. 2016.39(Suppl 1). Performed By: #### 2 4321-2, 75510-7, , 2776-07 ####[facility] LABORATORYCLIA [id number] [place] [address] [place] Potassium [Moles/Vol] 4.4 mmol/L Normal 3.7-5.1 [facility] Comment on above: Order Comment: Speci men Type: BLOOD SPECIMENOrdering Facility: [facility] Address: [address] Performed By: #### 2 4321-2, 73848-3, , 2776-07 ####[facility] LABORATORYCLIA [id number] [address] STATES [facility] Sodium [Moles/Vol] 133 mmol/L Low 136-144 [facility] Comment on above: Order Comment: Speci men Type: BLOOD SPECIMENOrdering Facility: [facility] Address: [address] [place] [address] Performed By: #### 2 4321-2, 02347-7, , 2776-07 ####[facility] LABORATORYCLIA [id number] [address] [place] [facility] Urea nitrogen [Mass/Vol] 25 mg/dL High 7-21 [facility] Comment on above: Order Comment: Speci men Type: BLOOD SPECIMENOrdering Facility: [facility] Address: [address] [place] [address] Performed By: #### 2 4321-2, 28975-4, , 2776-07 ####[facility] LABORATORYCLIA [id number] [address] [place] [facility] CBC panel Auto (Bld)on 06-18 Erythrocyte distribution width (RBC) [Ratio] 15.6 % High 11.5-15.0 [facility] Comment on above: Order Comment: Speci men Type: BLOOD SPECIMENOrdering Facility: [facility] Address: [address] [place] [address] Performed By: #### 5 8410-2 ####[facility] LABORATORYCLIA [id number] [address] Hematocrit (Bld) [Volume fraction] 26.8 % Low 36.0-46.0 [facility] Comment on above: Order Comment: Speci men Type: BLOOD SPECIMENOrdering Facility: [facility] Address: [address] [place] [address] Performed By: #### 5 8410-2 ####[facility] LABORATORYCLIA [id number] [place] [address] Hemoglobin (Bld) [Mass/Vol] 8.5 g/dL Low 11.5-15.5 [facility] Comment on above: Order Comment: Speci men Type: BLOOD SPECIMENOrdering Facility: [facility] Address: [address] [place] [address] Performed By: #### 5 8410-2 ####[facility] LABORATORYCLIA [id number] [address] MCH (RBC) [Entitic mass] 30.1 pg Normal 26.0-34.0 [facility] Comment on above: Order Comment: Speci men Type: BLOOD SPECIMENOrdering Facility: [facility] Address: [address] [place] [address] Performed By: #### 5 8410-2 ####[facility] LABORATORYCLIA [id number] [address] OF [facility] MCHC (RBC) [Mass/Vol] 31.7 g/dL Normal 30.5-36.0 [facility] Comment on above: Order Comment: Speci men Type: BLOOD SPECIMENOrdering Facility: [facility] Address: [address] [place] [address] Performed By: #### 5 8410-2 ####[facility] LABORATORYCLIA [id number] [address] OF [facility] MCV (RBC) [Entitic vol] 95.0 fL Normal 80.0-100.0 [facility] Comment on above: Order Comment: Speci men Type: BLOOD SPECIMENOrdering Facility: [facility] Address: [address] [place] [address] Performed By: #### 5 8410-2 ####[facility] LABORATORYCLIA [id number] [address] Nucleated RBC (Bld) [#/Vol] 0.03 10*3/uL High <0.01 [facility] Comment on above: Order Comment: Speci men Type: BLOOD SPECIMENOrdering Facility: [facility] Address: [address] [address] Performed By: #### 5 8410-2 ####[facility] LABORATORYCLIA [id number] [address] [place] Platelet mean volume (Bld) [Entitic vol] 10.2 fL Normal 9.0-12.7 [facility] Comment on above: Order Comment: Speci men Type: BLOOD SPECIMENOrdering Facility: [facility] Address: [address] [address] Performed By: #### 5 8410-2 ####[facility] LABORATORYCLIA [id number] [place] [address] [place] Platelets (Bld) [#/Vol] 234 10*3/uL Normal 150-400 [facility] Comment on above: Order Comment: Speci men Type: BLOOD SPECIMENOrdering Facility: [facility] Address: [address] [address] Performed By: #### 5 8410-2 ####[facility] LABORATORYCLIA [id number] [place] [address] [place] RBC (Bld) [#/Vol] 2.82 10*6/uL Low 3.90-5.20 [facility] Comment on above: Order Comment: Speci men Type: BLOOD SPECIMENOrdering Facility: [facility] Address: [address] [place] [address] Performed By: #### 5 8410-2 ####[facility] LABORATORYCLIA [id number] [address] [place] WBC (Bld) [#/Vol] 8.77 10*3/uL Normal 3.70-11.00 [facility] Comment on above: Order Comment: Speci men Type: BLOOD SPECIMENOrdering Facility: [facility] Address: [address] [place] [address] Performed By: #### 5 8410-2 ####[facility] LABORATORYCLIA [id number] [address] OF [facility] CONSULT PROGon 06-18-2022 CONSULT PROG HNO ID: [id number] Author: Jessica Colmenares APRN.CLEAN ROOM TECHNICIAN Service: Cardiovascular Medicine Author Type: Nurse Practitioner Type: Consult Progress Note Filed: 06/18/2022 2:46 PM Note Text: The ECHO reviewed, EF 59%. No significant valvular abnormalities. Chart reviewed, no further recommendations. Thank you, Jessica Colmenares APRN.CLEAN ROOM TECHNICIAN [facility] CONSULT PROG HNO ID: [id number] Author: Cirilo iYp RPh Service: Pharmacy Author Type: Pharmacist Type: [...] with any questions or concerns. SIGNATURE: Cirilo iYp RPh DATE/TIME: 06/18/2022 12:02 PM [facility] CONSULT PROG HNO ID: [id number] Author: Nimo Arzola MD Service: General Surgery [...] questions or concerns Mon-Fri 6a-5p please page [phone]. After 5pm and on Weekends and Holidays, please page [phone] if in ICU or [phone] if on RNF. Subjective SUBJECTIVE: No acute [...] 06/17/22699 - 06/18/2265806/18/22699 - 06/19/22 0659 Shift 7462-2529 5908-4603 2140-2361 24 Hour Total 3689-2242 3951-0327 3496-3548 24 Hour Total INTAKE IV 350 15 365 Volume (mL) 15 15 Volume (mL) (lactated ringers iv infusion) 350 350 Shift Total 350 15 365 OUTPUT Urine 9271 559 9294 Void (ml) 1450 1450 Output ( External Collection Device 06/16/22 2331) 400 400 # of BMs Stool Incontinence 1 x 1 x Number of BMs 1 x 1 x Shift Total 2068 443 5296 Weight (kg) 71.2 71.2 71.2 71.2 71.2 [...] (more content not included)... Normal [facility] Lipid 1996 panelon 2 Cholesterol [Mass/Vol] 139 mg/dL Normal <200 [facility] Comment on above: Order Comment: Speci men Type: BLOOD SPECIMENOrdering Facility: [facility] Address: [address] [address] Result Comment: <200 mg/dL, Desirable 200-239 mg/dL, Borderline high >239 mg/dL, High Performed By: #### 2 4321-2, 12993-7, , 2776-07 ####[facility] LABORATORYCLIA [id number] [address] [place] Cholesterol in HDL [Mass/Vol] 56 mg/dL Normal >39 [facility] Comment on above: Order Comment: Speci men Type: BLOOD SPECIMENOrdering Facility: [facility] Address: [address] [address] Result Comment: 40-5 9 mg/dL, Acceptable >59 mg/dL, High: Negative risk factor for coronary heart disease <40 mg/dL, Low: Positive risk factor for coronary heart disease Performed By: #### 2 4321-2, 54386-2, , 2776-07 ####[facility] LABORATORYCLIA [id number] [address] [place] Cholesterol in LDL [Mass/Vol] 64 mg/dL Normal <100 [facility] Comment on above: Order Comment: [facility] Type: BLOOD SPECIMENOrdering Facility: [facility] Address: [address] [phone] Result Comment: <100 mg/dL, Optimal 100-129 mg/dL, Near optimal/above optimal 130-159 mg/dL, Borderline high 160-189 mg/dL, High >189 mg/dL, Very high Secondary prevention optimal LDL Cholesterol levels are recommended to be < 70 mg/dL Performed By: #### 2 4321-2, 70422-2, , 2776-07 ####[facility] LABORATORYCLIA [id number] [address] Cholesterol in LDL/Cholesterol in HDL [Mass ratio] 1.14 {ratio} Normal <2.54 [facility] Comment on above: Order Comment: Speci men Type: BLOOD SPECIMENOrdering Facility: [facility] Address: [address] [place] [address] Result Comment: Refe rence: 1. National Cholesterol Education Program ATP III Guideline At-A-Glance Quick Desk Reference: National Heart, Lung, and Blood [facility]. National Institutes of Health. 2001: NIH Publication No. 01-3305. 2. An International Atherosclerosis Society position paper: global recommendations for the management of dyslipidemia: executive summary, Atherosclerosis. 2014: 232(2):410-413. Performed By: #### 2 4321-2, 59302-4, , 2776-07 ####[facility] LABORATORYCLIA [id number] [address] OF [facility] Cholesterol in VLDL [Mass/Vol] 19 mg/dL Normal <30 [facility] Comment on above: Order Comment: Speci men Type: BLOOD SPECIMENOrdering Facility: [facility] Address: [address] [place] [address] Performed By: #### 2 4321-2, 02922-9, , 2776-07 ####[facility] LABORATORYCLIA [id number] [address] OF [facility] Cholesterol non HDL [Mass/Vol] 83 mg/dL Normal <130 [facility] Comment on above: Order Comment: Speci men Type: BLOOD SPECIMENOrdering Facility: [facility] Address: [address] [place] [address] Result Comment: <130 mg/dL, Optimal 130-159 mg/dL, Near optimal/above optimal 160-189 mg/dL, Borderline high 190-219 mg/dL, High >219 mg/dL, Very high Secondary prevention optimal non HDL Cholesterol levels are recommended to be <100 mg/dL Performed By: #### 2 4321-2, 66921-6, , 2776-07 ####[facility] LABORATORYCLIA [id number] [address] Cholesterol.total/Pastora sterol in HDL [Mass ratio] 2.48 {ratio} Normal <5.10 [facility] Comment on above: Order Comment: Speci men Type: BLOOD SPECIMENOrdering Facility: [facility] Address: [address] [place] [address] Performed By: #### 2 4321-2, 16854-1, , 2776-07 ####[facility] LABORATORYCLIA [id number] [address] FASTING TIME 8 hrs Normal [facility] Comment on above: Order Comment: Speci men Type: BLOOD SPECIMENOrdering Facility: [facility] Address: [address] [place] [address] Performed By: #### 2 4320-2, 23947-4, , 2776-07 ####[facility] LABORATORYCLIA [id number] [address] OF [facility] Triglyceride [Mass/Vol] 93 mg/dL Normal <150 [facility] Comment on above: Order Comment: Speci men Type: BLOOD SPECIMENOrdering Facility: [facility] Address: [address] [place] [address] Result Comment: <150 mg/dL, Normal 150-199 mg/dL, Borderline high 200-499 mg/dL, High >499 mg/dL, Very high Performed By: #### 2 4321-2, 22375-1, , 2776-07 ####[facility] LABORATORYCLIA [id number] [address] [place] Magnesium SerPl-mCncon 06-18 Magnesium [Mass/Vol] 2.1 mg/dL Normal 1.7-2.3 [facility] Comment on above: Order Comment: Speci men Type: BLOOD SPECIMENOrdering Facility: [facility] Address: [address] [place] [address] Performed By: #### 2 4321-2, 42927-9, 87939-2, 2777-1 ####[facility] LABORATORYCLIA [id number] [address] Phosphate SerPl-mCncon 06-18 Phosphate [Mass/Vol] 3.3 mg/dL Normal 2.7-4.8 [facility] Comment on above: Order Comment: Speci men Type: BLOOD SPECIMENOrdering Facility: [facility] Address: [address] [place] [address] Performed By: #### 2 4321-2, 87995-9, 14905-3, 2777-1 ####[facility] LABORATORYCLIA [id number] [address] aPTT PPPon 06-18-2022 aPTT Coag (PPP) [Time] 37.2 s High 23.0-32.4 [facility] Comment on above: Order Comment: Speci men Type: BLOOD SPECIMENOrdering Facility: [facility] Address: [address] [place] [address] Performed By: #### 9 4500-6 #### [facility] CLIA [id number] [address] [place] [address] aPTT Coag (PPP) [Time] 58.8 s High 23.0-32.4 [facility] Comment on above: Order Comment: Speci men Type: BLOOD SPECIMENOrdering Facility: [facility] Address: [address] [place] [address] Performed By: #### 1 4979-9 ####[facility] LABORATORYCLIA [id number] [address] aPTT Coag (PPP) [Time] 127.7 s High 23.0-32.4 [facility] Comment on above: Order Comment: Speci men Type: BLOOD SPECIMEN [facility] Address: [address] [place] [address] Performed By: #### T SCR #### [facility] CLIA [id number] OF [facility] ALLIED HEALTHon 06-17-2022 ALLIED HEALTH HNO ID: [id number] Author: RT [place](R) Service: Radiology Author Type: [...] [place](R) June 17, 2022 9:30 AM Normal [facility] ALLIED [facility] HNO ID: [id number] Author: Jeremías Bragg II Service: Infection Prevention [...] TIME: 8:27 AM PAGER/CONTACT #: Infection Prevention, [id number] Infection Prevention after hours/weekend pager: [phone] Normal [facility] ANES POSTPROC EVALon 022 ANES POSTPROC EVAL HNO ID: [id number] Author: Larry Moss MD Service: Anesthesiology Author Type: Anesthesiologist Type: Anesthesia Postprocedure Evaluation Filed: 06/17/2022 6:51 AM Note Text: POST ANESTHESIA EVALUATION NOTE : 1940 Procedure Summary Date: 06/16/22 Room / Location: [place] / [place] Anesthesia Start: 1609 Anesthesia Stop: 1934 [...] Vitals Vitals Value Taken Time BP 81/59 06/16/227 Temp 36.6 ?C (97.9 ?F) 06/17/22 0300 [...] June 17, 2022 TIME: 6:50 AM CSN: [id number] Normal [facility] Basic metabolic 2000 panelon 06-17-2022 Anion gap [Moles/Vol] 9 mmol/L Normal 9-18 [facility] Comment on above: Order Comment: Speci men Type: BLOOD SPECIMENOrdering Facility: [facility] Address: [address] [place] [address] Performed By: #### 2 4321-2, , 2776-07 ####[facility] LABORATORYCLIA [id number] [place] [address] [place] Calcium [Mass/Vol] 7.9 mg/dL Low 8.5-10.2 [facility] Comment on above: Order Comment: Speci men Type: BLOOD SPECIMENOrdering Facility: [facility] Address: [address] [place] [address] Performed By: #### 2 4321-2, , 2776-07 ####[facility] LABORATORYCLIA [id number] [place] [address] [place] Chloride [Moles/Vol] 107 mmol/L High 97-105 [facility] Comment on above: Order Comment: Speci men Type: BLOOD SPECIMENOrdering Facility: [facility] Address: [address] [place] [address] Performed By: #### 2 4321-2, , 2776-07 ####[facility] LABORATORYCLIA [id number] [place] [address] [place] CO2 [Moles/Vol] 21 mmol/L Low 22-30 [facility] Comment on above: Order Comment: Speci men Type: BLOOD SPECIMENOrdering Facility: [facility] Address: [address] [place] [address] Performed By: #### 2 4321-2, , 2776-07 ####[facility] LABORATORYCLIA [id number] [place] [address] [place] Creatinine [Mass/Vol] 0.99 mg/dL High 0.58-0.96 [facility] Comment on above: Order Comment: Speci men Type: BLOOD SPECIMENOrdering Facility: [facility] Address: [address] [place] [address] Performed By: #### 2 4321-2, , 1 ####[facility] LABORATORYCLIA [id number] [address] [id number] [place] ESTIMATED GLOMERULAR FILTRATION RATE 57 mL/min/1.73m??? Low >=60 [facility] Comment on above: Order Comment: Rhina mason Type: BLOOD SPECIMENOrdering Facility: [facility] Address: [address] [place] [address] Result Comment: Isa mated Glomerular Filtration Rate [...] Performed By: #### 2 4321-2, , 2776-07 ####[facility]ITALIA [id number] [place] [address] [place] Glucose [Mass/Vol] 84 mg/dL Normal 74-99 [facility] Comment on above: Order Comment: Rhina mason Type: BLOOD SPECIMENOrdering Facility: [facility] Address: [address] [place] [address] Result Comment: The [place] Diabetes Association (ADA) provides guidance for cutoff [...] Standards of Medical Care in Diabetes 2016, [place] Diabetes Association. Diabetes Care. 2016.39(Suppl 1). Performed By: #### 2 4321-2, , 2776-07 ####[facility] LABORATORYCLIA [id number] [address] [place] Potassium [Moles/Vol] 4.3 mmol/L Normal 3.7-5.1 [facility] Comment on above: Order Comment: Speci men Type: BLOOD SPECIMENOrdering Facility: [facility] Address: [address] [place] [address] Performed By: #### 2 4321-2, , 2776- ####[facility] LABORATORYCLIA [id number] [address] STATES OF [facility] Sodium [Moles/Vol] 137 mmol/L Normal 136-144 [facility] Comment on above: Order Comment: Speci men Type: BLOOD SPECIMENOrdering Facility: [facility] Address: [address] [place] [address] Performed By: #### 2 4321-2, , 2776-07 ####[facility] LABORATORYCLIA [id number] [address] Urea nitrogen [Mass/Vol] 27 mg/dL High 7-21 [facility] Comment on above: Order Comment: Speci men Type: BLOOD SPECIMENOrdering Facility: [facility] Address: [address] [place] [address] Performed By: #### 2 4321-2, , 2776-07 ####[facility] LABORATORYCLIA [id number] [address] STATES [facility] CBC panel Auto (Bld)on 06-17 Erythrocyte distribution width (RBC) [Ratio] 15.5 % High 11.5-15.0 [facility] Comment on above: Order Comment: Speci men Type: BLOOD SPECIMENOrdering Facility: [facility] Address: [address] [place] [address] Performed By: #### 5 8410-2 ####[facility] LABORATORYCLIA [id number] [address] Hematocrit (Bld) [Volume fraction] 26.6 % Low 36.0-46.0 [facility] Comment on above: Order Comment: Speci men Type: BLOOD SPECIMENOrdering Facility: [facility] Address: [address] [place] [address] Performed By: #### 5 8410-2 ####[facility] LABORATORYCLIA [id number] [address] STATES OF [facility] Hemoglobin (Bld) [Mass/Vol] 8.5 g/dL Low 11.5-15.5 [facility] Comment on above: Order Comment: Speci men Type: BLOOD SPECIMENOrdering Facility: [facility] Address: [address] [place] [address] Performed By: #### 5 8410-2 ####[facility] LABORATORYCLIA [id number] [address] STATES OF [facility] MCH (RBC) [Entitic mass] 30.0 pg Normal 26.0-34.0 [facility] Comment on above: Order Comment: Speci men Type: BLOOD SPECIMENOrdering Facility: [facility] Address: [address] [place] [address] Performed By: #### 5 8410-2 ####[facility] LABORATORYCLIA [id number] [address] OF [facility] MCHC (RBC) [Mass/Vol] 32.0 g/dL Normal 30.5-36.0 [facility] Comment on above: Order Comment: Speci men Type: BLOOD SPECIMENOrdering Facility: [facility] Address: [address] [place] [address] Performed By: #### 5 8410-2 ####[facility] LABORATORYCLIA [id number] [address] STATES [facility] MCV (RBC) [Entitic vol] 94.0 fL Normal 80.0-100.0 [facility] Comment on above: Order Comment: Speci men Type: BLOOD SPECIMENOrdering Facility: [facility] Address: [address] [place] [address] Performed By: #### 5 8410-2 ####[facility] LABORATORYCLIA [id number] [address] [place] Nucleated RBC (Bld) [#/Vol] 0.02 10*3/uL High <0.01 [facility] Comment on above: Order Comment: Speci men Type: BLOOD SPECIMENOrdering Facility: [facility] Address: [address] [place] [address] Performed By: #### 5 8410-2 ####[facility] LABORATORYCLIA [id number] [address] [place] Platelet mean volume (Bld) [Entitic vol] 9.5 fL Normal 9.0-12.7 [facility] Comment on above: Order Comment: Speci men Type: BLOOD SPECIMENOrdering Facility: [facility] Address: [address] [place] [address] Performed By: #### 5 8410-2 ####[facility] LABORATORYCLIA [id number] [address] STATES OF [facility] Platelets (Bld) [#/Vol] 223 10*3/uL Normal 150-400 [facility] Comment on above: Order Comment: Speci men Type: BLOOD SPECIMENOrdering Facility: [facility] Address: [address] [place] [address] Performed By: #### 5 8410-2 ####[facility] LABORATORYCLIA [id number] [address] [place] RBC (Bld) [#/Vol] 2.83 10*6/uL Low 3.90-5.20 [facility] Comment on above: Order Comment: Speci men Type: BLOOD SPECIMENOrdering Facility: [facility] Address: [address] [place] [address] Performed By: #### 5 8410-2 ####[facility] LABORATORYCLIA [id number] [address] [place] WBC (Bld) [#/Vol] 8.61 10*3/uL Normal 3.70-11.00 [facility] Comment on above: Order Comment: Speci men Type: BLOOD SPECIMENOrdering Facility: [facility] Address: [place] [address] Performed By: #### 5 8410-2 ####[facility] LABORATORYCLIA [id number] [place] [address] [place] CONSULTon 06-17-2022 CONSULT HNO ID: [id number] Author: García Monique MD Service: Cardiovascular Medicine Author Type: Physician Type: Consults Filed: 06/17/2022 11:14 AM Note Text: [facility] ([facility]) History AND Physical Note PATIENT NAME: Mel Castillo DATE: June 17, 2022 ADMITTED FOR: Subjective HPI Ms. Mel Castillo is a 81 year old female with PMH: - Paroxysmal Afib - GERD - HTN - Hypothyroidism Patient presented to [facility] on 06/16/2022 for evaluation of left [...] her covid symptoms. States doesnot see a termite helper and has no other past cardiac history [...] -- 11.0 COAG: Recent Labs 06/17/22 0027 11/30205506/16/22 1215 06/16/22 0951 06/16/22 0304 APTT 28.5 [...] Procedure Component Value Units Date/Time Expedited COVID19 [[id number]] (Abnormal) Collected: 06/16/22826 Order Status: Completed Specimen: Nasal Swab from UPPER RESPIRATORY TRACT SWAB Updated: 06/16/221107 COVID 19 Result SARS-CoV-2 (Agent of COVID-19) Detected by RT-PCR or equivalent method. Comment: This test has been authorized by FDA under an Emergency Use Authorization (EUA). IMAGING: CT chest: No results found for: (more content not included)... Normal [facility] CONSULT PROGon 06-17-2022 CONSULT PROG HNO ID: [id number] Author: Dominique Lauren RPh Service: Pharmacy Author [...] any questions or concerns. SIGNATURE: Dominique Lauren tim DATE/TIME: 06/17/2022 3:47 PM Normal [facility] CONSULT PROG HNO ID: [id number] Author: Emanuel Hull MD Service: General Surgery [...] questions or concerns Mon-Fri 6a-5p please page [phone]. After 5pm and on Weekends and Holidays, please page [phone] if in ICU or [phone] if on RNF. Subjective SUBJECTIVE: Was able [...] Cannula IANDO: Date 06/16/22699 - 06/17/22 0659 06/17/22 07 - 06/18/22 0659 Shift 8113-8210 1631-3278 6921-3110 24 Hour Total 4475-3676 5745-0579 2812-5507 24 Hour Total INTAKE IV 600 1000 [...] Estimated Blood loss 100 100 Shift Total 272 910 1557 Weight (kg) 72.6 71.2 71.2 71.2 71.2 [...] (more content not included)... Normal [facility] ECHOon 06-17-2022 Echocardiography Echocardiography Report: Transthoracic Echo [facility] Date of service: 06/17/2022 10:27:19 [facility] Ordering physician: GARCÍA MONIQUE Indication: Nonsustained atrial fibrillation Technologist: Glendy Pena [facility] Interpreting physician: Nando Costa MD PATIENT: [...] * * Final * * * CC [email or web address] Medical Image : [id number] [id number] Normal [facility] Magnesium SerPl-ncon 06-17 Magnesium [Mass/Vol] 2.1 mg/dL Normal 1.7-2.3 [facility] Comment on above: Order Comment: Rhina mason Type: BLOOD SPECIMENOrdering Facility: [facility] Address: [address] [place] [address] Performed By: #### 2 4321-2, , 2776-07 ####[facility] LABORATORYCLIA [id number] [address] [place] Phosphate SerPl-mCncon 06-17 Phosphate [Mass/Vol] 3.8 mg/dL Normal 2.7-4.8 [facility] Comment on above: Order Comment: Rhina mason Type: BLOOD SPECIMENOrdering Facility: [facility] Address: [address] [place] [address] Performed By: #### 2 4321-2, , 27701-15 ####[facility] LABORATORYCLIA [id number] [place] [address] [place] XR CHEST 1V [...] Comparison: None. RESULT: Lines, tubes, and devices: residential monitor leads. Hardware noted in the proximal [...] in both lungs suspicious for multifocal pneumonia. Podiatric Assistant: DEVEN Transcribe Date/Time: Jun 17 2022 10:41A Dictated by : DI MINER MD This examination was interpreted and the report reviewed and electronically signed by: DI MINER MD on Jun 17 2022 10:43AM EST [id number] Normal [facility] aPTT PPPon 06-17-2022 aPTT Coag (PPP) [Time] 48.4 s High 23.0-32.4 [facility] Comment on above: Order Comment: Rhina mason Type: BLOOD SPECIMENOrdering Facility: [facility] Address: [address] [address] Performed By: #### 9 4500-6 #### [facility] LABORATORY CLIA [id number] [address] aPTT Coag (PPP) [Time] 29.4 s Normal 23.0-32.4 [facility] Comment on above: Order Comment: Speci isabella Type: BLOOD SPECIMENOrdering Facility: [facility] Address: [address] [address] Performed By: #### 3 2355-0 #### [facility] LAB[facility]ORY CLIA [id number] [address] [place] [address] aPTT Coag (PPP) [Time] 125.1 s High 23.0-32.4 [facility] Comment on above: Order Comment: Speci isabella Type: BLOOD SPECIMEN Ordering Facility: [facility] Address: [address] [address] Performed By: #### T SCR #### [facility] CLIA [id number] [address] aPTT Coag (PPP) [Time] s High 23.0-32.4 [facility] Comment on above: Order Comment: Speci men Type: BLOOD SPECIMENOrdering Facility: [facility] Address: [address] [address] Performed By: #### 3 2355-0 #### [facility] CLIA [id number] [address] aPTT Coag (PPP) [Time] 28.5 s Normal 23.0-32.4 [facility] Comment on above: Order Comment: Speci men Type: BLOOD SPECIMENOrdering Facility: [facility] Address: [address] [place] [address] Performed By: #### 1 4979-9 ####[facility] LABORATORYCLIA [id number] [address] ANES PRE-OPon 06-16-2022 ANES PRE-OP HNO ID: [id number] Author: Olu Winn MD Service: Anesthesiology Author Type: Physician Type: Anesthesia Preprocedure Evaluation Filed: 06/16/2022 5:41 PM Note Text: ANESTHESIOLOGY DAY OF SURGERY NOTE : 1940 Procedure Information Date/Time: 06/16/22 1540 Procedure: TRANSCATHETER THERAPY VENOUS INFUSION FOR THROMBOLYSIS W/RADIOLOGICAL SUPERVISION/INTERPRETAT ION INITIAL TREATMENT DAY, venogram (Left: Leg lower ) [place] Surgeons: Frida Rodriguez MD Estimated body [...] June 16, 2022 TIME: 3:44 PM CSN: [id number] [facility] BRIEF OP NOTon 06-16-2022 BRIEF OP NOT HNO ID: [id number] Author: Emanuel Hull MD Service: General Surgery [...] BRIEF OPERATIVE / PROCEDURE NOTE LOG ID: [id number] Surgery/Procedure Date: 06/16/2022 Incision/Procedure Start Time: 5:01 PM Incision Close/Procedure End Time: 6:58 PM Surgeon(s)/Proceduralis t(s) and Shuttler(s): Surgeon(s) and Role: * Frida Rodriguez MD [...] and on weekends, please page surgery on-call [phone] (RNF) or [phone] (ICU) SIGNATURE: Emanuel Hull MD PATIENT NAME: Mel Castillo DATE: June 16, 2022 TIME: 7:19 PM PAGER/CONTACT #: [phone] Normal [facility] CBC W Auto Differential pane l (Bld)on 06-16-2022 Anisocytosis Ql (Bld) Present Normal [facility] Comment on above: Order Comment: Speci men Type: BLOOD SPECIMENOrdering Facility: [facility] Address: [address] [address] Performed By: #### 5 7021-8 ####[facility] LABORATORYCLIA [id number] [place] [address] [place] Basophils (Bld) [#/Vol] 0.00 10*3/uL Normal <0.11 [facility] Comment on above: Order Comment: Speci men Type: BLOOD SPECIMENOrdering Facility: [facility] Address: [address] [address] Performed By: #### 5 7021-8 ####[facility] LABORATORYCLIA [id number] [address] [place] Basophils/100 WBC (Bld) 0.0 % Normal [facility] Comment on above: Order Comment: Speci men Type: BLOOD SPECIMENOrdering Facility: [facility] Address: [address] [address] Performed By: #### 5 7021-8 ####[facility] LABORATORYCLIA [id number] [address] Differential cell count method Nom (Bld) Manual Normal [facility] Comment on above: Order Comment: Speci men Type: BLOOD SPECIMENOrdering Facility: [facility] Address: [address] [place] [address] Performed By: #### 5 7021-8 ####[facility] LABORATORYCLIA [id number] [address] [place] Eosinophils (Bld) [#/Vol] 0.00 10*3/uL Normal <0.46 [facility] Comment on above: Order Comment: Speci men Type: BLOOD SPECIMENOrdering Facility: [facility] Address: [address] [place] [address] Performed By: #### 5 7021-8 ####[facility] LABORATORYCLIA [id number] [address] Eosinophils/100 WBC (Bld) 0.0 % Normal [facility] Comment on above: Order Comment: Speci men Type: BLOOD SPECIMENOrdering Facility: [facility] Address: [address] [place] [address] Performed By: #### 5 7021-8 ####[facility] LABORATORYCLIA [id number] [address] Erythrocyte distribution width (RBC) [Ratio] 15.6 % High 11.5-15.0 [facility] Comment on above: Order Comment: Speci men Type: BLOOD SPECIMENOrdering Facility: [facility] Address: [address] [place] [address] Performed By: #### 5 7021-8 ####[facility] LABORATORYCLIA [id number] [address] Hematocrit (Bld) [Volume fraction] 35.3 % Low 36.0-46.0 [facility] Comment on above: Order Comment: Speci men Type: BLOOD SPECIMENOrdering Facility: [facility] Address: [address] [place] [address] Performed By: #### 5 7021-8 ####[facility] LABORATORYCLIA [id number] [address] [place] Hemoglobin (Bld) [Mass/Vol] 11.4 g/dL Low 11.5-15.5 [facility] Comment on above: Order Comment: Speci men Type: BLOOD SPECIMENOrdering Facility: [facility] Address: [address] [place] [address] Performed By: #### 5 7021-8 ####[facility] LABORATORYCLIA [id number] [address] STATES OF [facility] Lymphocytes (Bld) [#/Vol] 1.27 10*3/uL Normal 1.00-4.00 [facility] Comment on above: Order Comment: Speci men Type: BLOOD SPECIMENOrdering Facility: [facility] Address: [address] [place] [address] Performed By: #### 5 7021-8 ####[facility] LABORATORYCLIA [id number] [address] Lymphocytes/100 WBC (Bld) 8.0 % Normal [facility] Comment on above: Order Comment: Speci men Type: BLOOD SPECIMENOrdering Facility: [facility] Address: [address] [place] [address] Performed By: #### 5 7021-8 ####[facility] LABORATORYCLIA [id number] [address] [place] MCH (RBC) [Entitic mass] 30.2 pg Normal 26.0-34.0 [facility] Comment on above: Order Comment: Speci men Type: BLOOD SPECIMENOrdering Facility: [facility] Address: [address] [place] [address] Performed By: #### 5 7021-8 ####[facility] LABORATORYCLIA [id number] [address] [place] MCHC (RBC) [Mass/Vol] 32.3 g/dL Normal 30.5-36.0 [facility] Comment on above: Order Comment: Speci men Type: BLOOD SPECIMENOrdering Facility: [facility] Address: [address] [place] [address] Performed By: #### 5 7021-8 ####[facility] LABORATORYCLIA [id number] [address] MCV (RBC) [Entitic vol] 93.6 fL Normal 80.0-100.0 [facility] Comment on above: Order Comment: Speci men Type: BLOOD SPECIMENOrdering Facility: [facility] Address: [address] [place] [address] Performed By: #### 5 7021-8 ####[facility] LABORATORYCLIA [id number] [address] [place] Monocytes (Bld) [#/Vol] 1.74 10*3/uL High <0.87 [facility] Comment on above: Order Comment: Speci men Type: BLOOD SPECIMENOrdering Facility: [facility] Address: [address] [place] [address] Performed By: #### 5 7021-8 ####[facility] LABORATORYCLIA [id number] [address] STATES [facility] Monocytes/100 WBC (Bld) 11.0 % Normal A [facility] Comment on above: Order Comment: Speci men Type: BLOOD SPECIMENOrdering Facility: [facility] Address: [address] [place] [address] Performed By: #### 5 7021-8 ####[facility] LABORATORYCLIA [id number] [address] [place] MYELO% 4.0 % Normal [facility] Comment on above: Order Comment: Speci men Type: BLOOD SPECIMENOrdering Facility: [facility] Address: [address] [place] [address] Performed By: #### 5 7021-8 ####[facility] LABORATORYCLIA [id number] [address] [place] Neutrophils (Bld) [#/Vol] 12.02 10*3/uL High 1.45-7.50 [facility] Comment on above: Order Comment: Speci men Type: BLOOD SPECIMENOrdering Facility: [facility] Address: [address] [place] [address] Performed By: #### 5 7021-8 ####[facility] LABORATORYCLIA [id number] [address] Neutrophils/100 WBC (Bld) 76.0 % Normal [facility] Comment on above: Order Comment: Speci men Type: BLOOD SPECIMENOrdering Facility: [facility] Address: [address] [place] [address] Performed By: #### 5 7021-8 ####[facility] LABORATORYCLIA [id number] [address] Nucleated RBC (Bld) [#/Vol] 10*3/uL Normal <0.01 [facility] Comment on above: Order Comment: Speci men Type: BLOOD SPECIMENOrdering Facility: [facility] Address: [address] [place] [address] Performed By: #### 5 7021-8 ####[facility] LABORATORYCLIA [id number] [address] Nucleated RBC/100 WBC (Bld) [Ratio] 0.0 /100 WBC Normal [facility] Comment on above: Order Comment: Speci men Type: BLOOD SPECIMENOrdering Facility: [facility] Address: [address] [place] [address] Performed By: #### 5 7021-8 ####[facility] LABORATORYCLIA [id number] [address] [place] Platelet mean volume (Bld) [Entitic vol] 9.7 fL Normal 9.0-12.7 [facility] Comment on above: Order Comment: Speci men Type: BLOOD SPECIMENOrdering Facility: [facility] Address: [address] [place] [address] Performed By: #### 5 7021-8 ####[facility] LABORATORYCLIA [id number] [address] [place] Platelets (Bld) [#/Vol] 373 10*3/uL Normal 150-400 [facility] Comment on above: Order Comment: Speci men Type: BLOOD SPECIMENOrdering Facility: [facility] Address: [address] [place] [address] Performed By: #### 5 7021-8 ####[facility] LABORATORYCLIA [id number] [place] [address] [place] Platelets Estimate (Bld) [#/Vol] Adequate Normal [facility] Comment on above: Order Comment: Speci men Type: BLOOD SPECIMENOrdering Facility: [facility] Address: [address] [place] [address] Performed By: #### 5 7021-8 ####[facility] LABORATORYCLIA [id number] [address] PROMYL% 1.0 % Normal [facility] Comment on above: Order Comment: Speci men Type: BLOOD SPECIMENOrdering Facility: [facility] Address: [address] [address] Performed By: #### 5 7021-8 ####[facility] LABORATORYCLIA [id number] [address] [place] RBC (Bld) [#/Vol] 3.77 10*6/uL Low 3.90-5.20 [facility] Comment on above: Order Comment: Speci men Type: BLOOD SPECIMENOrdering Facility: [facility] Address: [address] [place] [address] Performed By: #### 5 7021-8 ####[facility] LABORATORYCLIA [id number] [address] RED CELL MORPH Normal Normal [facility] Comment on above: Order Comment: Speci men Type: BLOOD SPECIMENOrdering Facility: [facility] Address: [address] [place] [address] Performed By: #### 5 7021-8 ####[facility] LABORATORYCLIA [id number] [address] STATES OF [facility] SPHEROCYTES Few Normal [facility] Comment on above: Order Comment: Speci men Type: BLOOD SPECIMENOrdering Facility: [facility] Address: [address] [place] [address] Performed By: #### 5 7021-8 ####[facility] LABORATORYCLIA [id number] [place] [address] [place] WBC (Bld) [#/Vol] 15.82 10*3/uL High 3.70-11.00 [facility] Comment on above: Order Comment: Speci men Type: BLOOD SPECIMENOrdering Facility: [facility] Address: [address] [place] [address] Result Comment: Resu lts checked and verified. Performed By: #### 5 7021-8 ####[facility] LABORATORYCLIA [id number] [address] STATES OF [facility] CBC panel Auto (Bld)on 06-16 Erythrocyte distribution width (RBC) [Ratio] 15.5 % High 11.5-15.0 [facility] Comment on above: Order Comment: Speci men Type: BLOOD SPECIMENOrdering Facility: [facility] Address: [address] [place] [address] Performed By: #### 5 8410-2 ####[facility] LABORATORYCLIA [id number] [address] [place] Hematocrit (Bld) [Volume fraction] 30.1 % Low 36.0-46.0 [facility] Comment on above: Order Comment: Speci men Type: BLOOD SPECIMENOrdering Facility: [facility] Address: [address] [place] [address] Performed By: #### 5 8410-2 ####[facility] LABORATORYCLIA [id number] [address] Hemoglobin (Bld) [Mass/Vol] 9.8 g/dL Low 11.5-15.5 [facility] Comment on above: Order Comment: Speci men Type: BLOOD SPECIMENOrdering Facility: [facility] Address: [address] [address] Performed By: #### 5 8410-2 ####[facility] LABORATORYCLIA [id number] [address] MCH (RBC) [Entitic mass] 30.8 pg Normal 26.0-34.0 [facility] Comment on above: Order Comment: Speci men Type: BLOOD SPECIMENOrdering Facility: [facility] Address: [address] [address] Performed By: #### 5 8410-2 ####[facility] LABORATORYCLIA [id number] [address] MCHC (RBC) [Mass/Vol] 32.6 g/dL Normal 30.5-36.0 [facility] Comment on above: Order Comment: Speci men Type: BLOOD SPECIMENOrdering Facility: [facility] Address: [address] [address] Performed By: #### 5 8410-2 ####[facility] LABORATORYCLIA [id number] [address] MCV (RBC) [Entitic vol] 94.7 fL Normal 80.0-100.0 [facility] Comment on above: Order Comment: Speci men Type: BLOOD SPECIMENOrdering Facility: [facility] Address: [address] [place] [address] Performed By: #### 5 8410-2 ####[facility] LABORATORYCLIA [id number] [address] Nucleated RBC (Bld) [#/Vol] 0.08 10*3/uL High <0.01 [facility] Comment on above: Order Comment: Speci men Type: BLOOD SPECIMENOrdering Facility: [facility] Address: [address] [place] [address] Performed By: #### 5 8410-2 ####[facility] LABORATORYCLIA [id number] [address] Platelet mean volume (Bld) [Entitic vol] 9.6 fL Normal 9.0-12.7 [facility] Comment on above: Order Comment: Speci men Type: BLOOD SPECIMENOrdering Facility: [facility] Address: [address] [place] [address] Performed By: #### 5 8410-2 ####[facility] LABORATORYCLIA [id number] [address] [place] Platelets (Bld) [#/Vol] 277 10*3/uL Normal 150-400 [facility] Comment on above: Order Comment: Speci men Type: BLOOD SPECIMENOrdering Facility: [facility] Address: [address] [place] [address] Performed By: #### 5 8410-2 ####[facility] LABORATORYCLIA [id number] [address] RBC (Bld) [#/Vol] 3.18 10*6/uL Low 3.90-5.20 [facility] Comment on above: Order Comment: Speci men Type: BLOOD SPECIMENOrdering Facility: [facility] Address: [address] [place] [address] Performed By: #### 5 8410-2 ####[facility] LABORATORYCLIA [id number] [address] WBC (Bld) [#/Vol] 10.43 10*3/uL Normal 3.70-11.00 [facility] Comment on above: Order Comment: Speci men Type: BLOOD SPECIMENOrdering Facility: [facility] Address: [address] [place] [address] Performed By: #### 5 8410-2 ####[facility] LABORATORYCLIA [id number] [address] CONSULTon 06-16-2022 CONSULT HNO ID: [id number] Author: Iman Saldana DO Service: General Surgery [...] file. Subjective HISTORY OF PRESENT ILLNESS: Ms. Kiesha Castillo is a 81 year old female [...] (more content not included)... Normal [facility] CTA ABD/PEL/LOWER EXT W IVCO Non 06-16-2022 CTA ABD/PEL/LOWER EXT W IVCON * * *Final Report* * * DATE OF EXAM: Jun 16 2022 7:33AM [facility] 0122 - CTA ABD/PEL/LOWER EXT W [...] lobe consolidation may represent pneumonia or atelectasis. Podiatric Assistant: [facility] Transcribe Date/Time: Jun 16 2022 7:54A Dictated by : ESTHER MCKEON MD This examination was interpreted and the report reviewed and electronically signed by: ESTHER MCKEON MD on Jun 16 2022 8:22AM EST [id number] Normal [facility] Comprehensive metabolic 2000 panelon 06-16-2022 Albumin [Mass/Vol] 3.2 g/dL Low 3.9-4.9 [facility] Comment on above: Order Comment: Speci men Type: BLOOD SPECIMENOrdering Facility: [facility] Address: [address] [place] [phone] Performed By: #### 3 3959-8, 00368-4, 11084-9, 87512-1 ####[facility]OSPITALIA [id number] [place] [address] [place] ALP [Catalytic activity/Vol] 111 U/L Normal 34-123 [facility] Comment on above: Order Comment: Speci men Type: BLOOD SPECIMENOrdering Facility: [facility] Address: [address] [place] [address] Performed By: #### 3 3959-8, 63079-7, 16020-0, 73719-7 ####[facility] LABORATORYCLIA [id number] [address] [id number] [place] OF [facility] ALT With P-5'-P [Catalytic activity/Vol] 20 U/L Normal 7-38 [facility] Comment on above: Order Comment: Speci men Type: BLOOD SPECIMENOrdering Facility: [facility] Address: [address] [place] [address] Performed By: #### 3 3959-8, 87207-1, 40993-9, 37456-8 ####[facility] IND[facility]NACLIA [id number] [address] Anion gap [Moles/Vol] 17 mmol/L Normal 9-18 [facility] Comment on above: Order Comment: Speci men Type: BLOOD SPECIMENOrdering Facility: [facility] Address: [address] [place] [address] Performed By: #### 3 3959-8, 53469-7, 30702-0, 41839-3 ####[facility] LABORATORYCLIA [id number] [address] AST With P-5'-P [Catalytic activity/Vol] 13 U/L Normal 13-35 [facility] Comment on above: Order Comment: Speci men Type: BLOOD SPECIMENOrdering Facility: [facility] Address: [address] [place] [address] Performed By: #### 3 3959-8, 34277-0, 39373-4, 00925-7 ####[facility] LABORATORYCLIA [id number] [address] [place] [id number] [place] Bilirubin [Mass/Vol] 0.3 mg/dL Normal 0.2-1.3 [facility] Comment on above: Order Comment: Speci men Type: BLOOD SPECIMENOrdering Facility: [facility] Address: [address] [place] [address] Performed By: #### 3 3959-8, 89407-9, 45783-7, 35660-6 ####[facility] LABORATORYCLIA [id number] [place] [address] [place] Calcium [Mass/Vol] 9.1 mg/dL Normal 8.5-10.2 [facility] Comment on above: Order Comment: Speci men Type: BLOOD SPECIMENOrdering Facility: [facility] Address: [address] [place] [address] Performed By: #### 3 3959-8, 70984-7, 22436-4, 25416-7 ####[facility] LABORATORYCLIA [id number] [place] [address] [place] Chloride [Moles/Vol] 104 mmol/L Normal 97-105 [facility] Comment on above: Order Comment: Speci men Type: BLOOD SPECIMENOrdering Facility: [facility] Address: [address] [place] [address] Performed By: #### 3 3959-8, 21735-4, 54368-3, 47749-7 ####[facility] LABORATORYCLIA [id number] [place] [address] [place] CO2 [Moles/Vol] 18 mmol/L Low 22-30 [facility] Comment on above: Order Comment: Speci men Type: BLOOD SPECIMENOrdering Facility: [facility] Address: [address] [place] [address] Performed By: #### 3 3959-8, 23206-5, 42041-8, 35850-8 ####[facility] LABORATORYCLIA [id number] [place] [address] [place] Creatinine [Mass/Vol] 1.14 mg/dL High 0.58-0.96 [facility] Comment on above: Order Comment: Rhina isabella Type: BLOOD SPECIMENOrdering Facility: [facility] Address: [address] [address] Performed By: #### 3 3959-8, 57227-8, 63993-8, 46987-9 ####[facility] LABORATORYCLIA [id number] [address] [id number] [place] [facility] ESTIMATED GLOMERULAR FILTRATION RATE 48 mL/min/1.73m??? Low >=60 [facility] Comment on above: Order Comment: Rhina mason Type: BLOOD SPECIMENOrdering Facility: [facility] Address: [address] [address] Result Comment: Isa mated Glomerular Filtration Rate [...] actual GFR. Performed By: #### 3 3959-8, 12294-2, 31054-2, 57544-6 ####[facility] LABORATORYCLIA [id number] [place] [address] [place] Glucose [Mass/Vol] 122 mg/dL High 74-99 [facility] Comment on above: Order Comment: Rhina mason Type: BLOOD SPECIMENOrdering Facility: [facility] Address: [address] [address] Result Comment: The [place] Diabetes Association (ADA) provides guidance for cutoff [...] Standards of Medical Care in Diabetes 2016, [place] [employer] Association. Diabetes Care. 2016.39(Suppl 1). Performed By: #### 3 3959-8, 76257-8, 27325-3, 37766-5 ####[facility] LABORATORYCLIA [id number] [place] [address] [place] Potassium [Moles/Vol] 4.4 mmol/L Normal 3.7-5.1 [facility] Comment on above: Order Comment: Speci men Type: BLOOD SPECIMENOrdering Facility: [facility] Address: [address] [address] Performed By: #### 3 3959-8, 67677-6, 08067-7, 68507-1 ####[facility] LABORATORYCLIA [id number] [place] [address] [place] Protein [Mass/Vol] 6.6 g/dL Normal 6.3-8.0 [facility] Comment on above: Order Comment: Speci men Type: BLOOD SPECIMENOrdering Facility: [facility] Address: [address] [place] [address] Performed By: #### 3 3959-8, 00308-7, 79202-0, 89134-9 ####[facility] LABORATORYCLIA [id number] [place] [address] [place] Sodium [Moles/Vol] 139 mmol/L Normal 136-144 [facility] Comment on above: Order Comment: Speci men Type: BLOOD SPECIMENOrdering Facility: [facility] Address: [address] [address] Performed By: #### 3 3959-8, 62658-7, 50971-6, 98978-5 ####[facility] LABORATORYCLIA [id number] [address] [id number] [place] Urea nitrogen [Mass/Vol] 35 mg/dL High 7-21 [facility] Comment on above: Order Comment: Speci men Type: BLOOD SPECIMENOrdering Facility: [facility] Address: [address] [address] Performed By: #### 3 3959-8, 60815-0, 74190-3, 22189-0 ####[facility] LABORATORYIA [id number] [address] [id number] [facility] ED NOTEon 06-16-2022 ED NOTE HNO ID: [id number] Author: Adela Cortez RN Service: Emergency Medicine Author Type: Registered Nurse Type: ED Notes Filed: 06/16/2022 11:27 AM Note Text: Pts aptt is >139. Nongram states to hold dose and let MD know. Vascular resident made aware, MD ordered to hold dose x1 hour and then redraw aptt. Normal [facility] ED NOTE HNO ID: [id number] Author: Nancy Scott RN Service: Emergency Medicine Author Type: Registered Nurse Type: ED Notes Filed: 06/16/2022 7:13 AM Note Text: CT notified that pt has been moved to new room and is ready for testing [facility] ED NOTE HNO ID: [id number] Author: Marleen Blank RN Service: ? Author Type: Registered Nurse Type: ED Notes Filed: 06/16/2022 6:59 AM Note Text: Bed: 19-ED Expected date: Expected time: Means of arrival: Comments: [facility] ED NOTE HNO ID: [id number] Author: Nancy Scott RN Service: Emergency Medicine Author Type: Registered Nurse Type: ED Notes Filed: 06/16/2022 6:44 AM Note Text: CT delayed due to pt needing to move rooms because of bed bugs. [facility] ED NOTE HNO ID: [id number] Author: Nancy Scott RN Service: Emergency Medicine Author Type: Registered Nurse Type: ED Notes Filed: 06/16/2022 3:09 AM Note Text: CT form faxed, ptt sent [facility] ED NOTE HNO ID: [id number] Author: Nancy Scott RN Service: Emergency Medicine Author Type: Registered Nurse Type: ED Notes Filed: 06/16/2022 3:02 AM Note Text: US notified [facility] ED NOTE HNO ID: [id number] Author: Nancy Scott RN Service: Emergency Medicine Author Type: Registered Nurse Type: ED Notes Filed: 06/16/2022 2:48 AM Note Text: CT notified [facility] ED NOTE HNO ID: [id number] Author: Nancy Scott RN Service: Emergency Medicine Author Type: Registered Nurse Type: ED Notes Filed: 06/16/2022 2:43 AM Note Text: Labs sent [facility] ED NOTE HNO ID: [id number] Author: Davian Chen RN Service: ? Author Type: Registered Nurse Type: ED Notes Filed: 06/16/2022 2:06 AM Note Text: Bed: 15-ED Expected date: Expected time: Means of arrival: Comments: ramesh [facility] ED PROV NOTEon 06-16-2022 ED PROV NOTE HNO ID: [id number] Author: Vanessa Trevizo DO Service: Emergency Medicine [...] (more content not included)... Normal [facility] ED PROV NOTE HNO ID: [id number] Author: Vanessa Trevizo DO Service: Emergency Medicine [...] and diagnosis. Vanessa Trevizo 06/16/22 0323 Normal [facility] EKGon 06-16-2022 Electrocardiogram Ventricular Rate : 1 13 BPM Atrial Rate : 122 BPM QRS Duration : 100 ms Q-T Interval : 282 ms QTC Calculation(Bazett) : 386 ms Calculated R Equality : 46 degrees Calculated T Equality : -40 degrees ATRIAL FIBRILLATION WITH RAPID VENTRICULAR RESPONSE ABNORMAL QRS-T ANGLE, CONSIDER PRIMARY T WAVE ABNORMALITY ABNORMAL ECG NO PREVIOUS ECGS AVAILABLE Confirmed by MD LEONE CAROL ([id number]) on 06/16/2022 6:43:12 PM NAME : MEL GUADARRAMA PID : [id number] : 1940 Gender : Female Race : ORD : Procedure Date : Jun 16 2022 07:37:07 Edit Date : Jun 16 2022 18:43:17 Diagnosis: ATRIAL FIBRILLATION WITH RAPID VENTRICULAR RESPONSE ABNORMAL QRS-T ANGLE, CONSIDER PRIMARY T WAVE ABNORMALITY ABNORMAL ECG NO PREVIOUS ECGS AVAILABLE Confirmed by MD LEONE CAROL ([id number]) on 06/16/2022 6:43:12 PM Test Reason : Location : 4 : [place] [place] [address] Overread By : MD LEONE CAROL Edited By : MD LEONE CAROL Referred By : , Acquired by : PATRICIA MOE [facility] HIGH SENSITIVITY TROPONIN T (INITIAL)on 06-16-2022 HIGH SENSITIVITY CHRISTOPHER 34 ng/L High <12 [facility] Comment on above: Order Comment: Speci men Type: BLOOD SPECIMENOrdering Facility: [facility] Address: [facility] [place] [address] Result Comment: When assessing risk for acute [...] MACE. Performed By: #### 3 2355-0 #### [facility] LABORATORY CLIA [id number] [address] HIGH SENSITIVITY TROPONIN T (SECOND)on 06-16-2022 HIGH SENSITIVITY CHRISTOPHER 28 ng/L High <12 [facility] Comment on above: Order Comment: Rhina mason Type: BLOOD SPECIMENOrdering Facility: [facility] Address: [address] [place] [address] Result Comment: When assessing risk for acute [...] 30 day MACE. Performed By: #### L [id number] ####[facility] LABORATORYCLIA [id number] [address] HIGH SENSITIVITY TROPONIN T (THIRD) 3 HRS AFTER INITIALon 06-16-2022 HIGH SENSITIVITY CHRISTOPHER 23 ng/L High <12 [facility] Comment on above: Order Comment: hRina mason Type: BLOOD SPECIMENOrdering Facility: [facility] Address: [address] [place] [address] Result Comment: When assessing risk for acute [...] 30 day MACE. Performed By: #### L [id number] ####[facility] LABORATORYCLIA [id number] [address] HISTORY PHYSICALon HISTORY PHYSICAL HNO ID: [id number] Author: Kristen Jones APRN.CLEAN ROOM TECHNICIAN Service: Hospital Medicine Author Type: Nurse Practitioner Type: HANDP Filed: 06/16/2022 1:27 PM Note Text: DEPARTMENT OF HOSPITAL MEDICINE HISTORY AND PHYSICAL EXAM SERVICE DATE: 06/16/2022 SERVICE TIME: 12:02 PM Primary Care Physician: Dr. Evans Admitting Provider: Kristen Jones APRN.CLEAN ROOM TECHNICIAN NIGHT AND WEEKEND COVERAGE: After 7pm, please call cross cover pager #[phone] Subjective CHIEF COMPLAINT: Left leg pain, discoloration [...] this patient has 2 charts. Mel Garcia [id number] and Mel Castillo [id number]. PAST MEDICAL HISTORY Diagnosis Date Acute bacterial [...] chest pain Gastrointestinal: + diarrhea x 1 [facility] Genitourinary: Denies dysuria Musculoskeletal: + left leg [...] (more content not included)... Normal [facility] Magnesium SerPl-mCncon 06-16 Magnesium [Mass/Vol] 2.4 mg/dL High 1.7-2.3 [facility] Comment on above: Order Comment: Speci men Type: BLOOD SPECIMENOrdering Facility: [facility] Address: [address] [place] [address] Performed By: #### 3 3959-8, 99851-7, 72705-0, 68506-8 ####[facility] LABORATORYCLIA [id number] [address] [place] NT-proBNP [facility] Natriuretic peptide.B prohormone N-Terminal [Mass/Vol] 4156 pg/mL High <450 [facility] Comment on above: Order Comment: Speci men Type: BLOOD SPECIMEN [facility] Address: [address] [place] [address] Performed By: #### T SCR #### [facility] CLIA [id number] [address] [place] NURSING PROGon 06-16-2022 NURSING PROG HNO ID: [id number] Author: Kayden José RN Service: Trauma Author [...] RECEIVING NURSE. NIKKY FRAGA. Normal [facility] PT panel Coag (PPP)on 2021 INR Coag (PPP) [Relative time] 1.1 {INR} Normal 0.9-1.3 [facility] Comment on above: Order Comment: Rhina mason Type: BLOOD SPECIMENOrdering Facility: [facility] Address: [address] [place] [address] Result Comment: Mayra min K Antagonist (VKA) Therapeutic Range: INR 2 to 3 (Target INR of 2.5) Note: For patients treated with VKA drugs, such as warfarin, the [place] [employer] 2012 Guideline recommends [...] Chest 2012, 141:7S-47S Daren RA, et al. [facility] 2017, 70: 252-289 Performed By: #### 3 4528-0, 49371-2 ####[facility] LABORATORYCLIA [id number] [place] [address] [place] PT Coag (PPP) [Time] 11.3 s Normal 9.7-13.0 [facility] Comment on above: Order Comment: Rhina mason Type: BLOOD SPECIMENOrdering Facility: [facility] Address: [address] [place] [address] Performed By: #### 3 4528-0, 04317-9 ####[facility] LABORATORYCLIA [id number] [place] [address] [place] Procalcitonin SerPl-mCncon 08-16-2021 Procalcitonin [Mass/Vol] 0.19 ng/mL High <0.09 [facility] Comment on above: Order Comment: Rhina mason Type: BLOOD SPECIMEN [facility]: [facility] Address: [address] [place] [address] Result Comment: For a guided interpretation of test results, please visit the Change in Procalcitonin Calculator, [email or web address]. Performed By: #### T SCR #### [facility] CLIA [id number] [address] SARS-CoV-2 RNA Resp Ql OXANA+p robeon 06-16-2022 SARS-CoV-2 (COVID-19) RNA OXANA+probe Ql (Resp) COVID 19 RESULT: SARS-CoV-2 (Agent of COVID-19) Detected by RT-PCR or equivalent method. This test has been authorized by FDA under an Emergency Use Authorization (EUA). Normal [facility] Comment on above: Performed By: #### 9 4500-6 #### [facility] CLIA [id number] [address] US DVT LOWER LTon 06-16-2022 US DVT LOWER LT * * *Final Report* * * DATE OF EXAM: Jun 16 2022 5:04AM [facility] 1006 - US DVT LOWER LT / [...] Torres MD on 515 via verbal communication. Podiatric Assistant: DEVEN Transcribe Date/Time: Jun 16 2022 5:07A Dictated by : SKIP NOEL MD This examination was interpreted and the report reviewed and electronically signed by: SKIP NOEL MD on Jun 16 2022 5:17AM EST [id number] Normal [facility] aPTT PPPon 06-16-2022 aPTT Coag (PPP) [Time] 74.2 s High 23.0-32.4 [facility] Comment on above: Order Comment: Speci isabella Type: BLOOD SPECIMENOrdering Facility: [facility] Address: [address] [address] Performed By: #### 1 4979-9 ####[facility] LABORATORYCLIA [id number] [address] OF [facility] aPTT Coag (PPP) [Time] 134.7 s High 23.0-32.4 [facility] Comment on above: Order Comment: Speci men Type: BLOOD SPECIMENOrdering Facility: [facility] Address: [address] [place] [address] Performed By: #### 1 4979-9 ####[facility] LABORATORYCLIA [id number] [address] aPTT Coag (PPP) [Time] s High 23.0-32.4 [facility] Comment on above: Order Comment: Speci men Type: BLOOD SPECIMENOrdering Facility: [facility] Address: [address] [address] Performed By: #### 1 4979-9 ####[facility] [id number] [place] [id number] [facility] aPTT Coag (PPP) [Time] 21.7 s Low 23.0-32.4 [facility] Comment on above: Order Comment: Speci men Type: BLOOD SPECIMENOrdering Facility: [facility] Address: [address] [place] [address] Performed By: #### 3 4528-0, 34314-9 ####[facility] [id number] [address] CULTURE AND STAIN - TISSUEon 03-10-2020 [...] 0.12 S Rifampin(AGATA) <= 0.5 S Normal [facility] Comment on above: Performed By: #### C XTIS #### [facility] [address] [place] [address] [id number] #### C/DAMIÁN #### [address] CR Finger(s) Min 2 Views Rig hton 03-07-2020 CR Finger(s) Min 2 Views Right Patient Name: MEL POP Diagnostic Radiology Exam Date/Time 03/06/2020 10:30:00 EDT Exam CR Finger(s) Min 2 Views Right Ordering Physician MD GUSTAVO, JAYLA Stoll Accession Number [id number] CPT4 Codes 88775 () Reason For Exam pain Report Right [...] was communicated to JAYLA MCMAHAN via the [employer] Critical Result system on 03/07/2020 8:07 PM EDT, Message ID [id number]. Report Dictated on Final Dictating Physician: MD PERRY DIANE Signed Date and Time: 03/07/2020 8:07 pm Signed by: MD PERRY DIANE Transcribed Date and Time: 03/07/2020 8:08 Normal [facility] CULTURE ANAEROBEon 0 CULTURE ANAEROBE CULTURE ANAEROBE --> Status: F No growth of anaerobes at 5 days. STAIN GRAM --> Status: F Few polymorphonuclear cells/lpf. No organisms seen. No organisms seen. Normal [facility] Comment on above: Performed By: #### C XTIS #### [address] [place] [address] [place] [address] [address] [place], [place] [id number] #### C/DAMIÁN #### [address] [place] [address] Vital Signs Date Time Vital Sign Value Performing Clinician Facility 03-15-2025 11:06-0400 Body height 160 cm Andre Berry MD Work Phone: [facility] 03-15-2025 11:06-0400 Body mass index (BMI) [Ratio] 27.1 kg/m2 Andre Berry MD Work Phone: [facility] 03-15-2025 11:06-0400 Body temperature 97.39 [degF] Andre Berry MD Work Phone: [facility] 03-15-2025 11:06-0400 Body weight 69.4 kg Andre Berry MD Work Phone: [facility] Comment on above: unable to stand for ht and wt today 03-15-2025 11:06-0400 Diastolic blood pressure 48 mm[Hg] Andre Berry MD Work Phone: [facility] 03-15-2025 11:06-0400 Heart rate 45 /min Andre Berry MD Work Phone: [facility] 03-15-2025 11:06-0400 SaO2% (BldA) [Mass fraction] 100 % Andre Berry MD Work Phone: [facility] 03-15-2025 11:06-0400 Systolic blood pressure 97 mm[Hg] Andre Berry MD Work Phone: [facility] 12-24-2024 14:45-0400 Body mass index (BMI) [Ratio] 27.1 kg/m2 Kristyn Blankenship MD Work Phone: [facility] 12-24-2024 14:45-0400 Body weight 69.4 kg Kristyn Blankenship MD Work Phone: [facility] 12-05-2024 10:20-0400 Body height 160 cm Kristyn Blankenship MD Work Phone: [facility] 12-05-2024 10:20-0400 Body mass index (BMI) [Ratio] 29.23 kg/m2 Kristyn Blankenship MD Work Phone: [facility] 12-05-2024 10:20-0400 Body weight 74.84 kg Kristyn Blankenship MD Work Phone: [facility] 12-05-2024 10:20-0400 Diastolic blood pressure 78 mm[Hg] Kristyn Blankenship MD Work Phone: [facility] 12-05-2024 10:20-0400 Heart rate 78 /min Kristyn Blankenship MD Work Phone: [facility] 12-05-2024 10:20-0400 Respiratory rate 18 /min rKistyn Blankenship MD Work Phone: [facility] 12-05-2024 10:20-0400 SaO2% (BldA) [Mass fraction] 94 % Kristyn Blankenship MD Work Phone: [facility] 12-05-2024 10:20-0400 Systolic blood pressure 102 mm[Hg] Kristyn Blankenship MD Work Phone: [facility] 11-22-2024 13:45-0400 Diastolic blood pressure 54 mm[Hg] Kristyn Blankenship MD Work Phone: [facility] 11-22-2024 13:45-0400 Heart rate 58 /min Kristyn Blankenship MD Work Phone: [facility] 11-22-2024 13:45-0400 Respiratory rate 18 /min Kristyn Blankenship MD Work Phone: [facility] 11-22-2024 13:45-0400 SaO2% (BldA) [Mass fraction] 95 % rKistyn Blankenship MD Work Phone: [facility] 11-22-2024 13:45-0400 Systolic blood pressure 139 mm[Hg] Kristyn Blankenship MD Work Phone: [facility] 11-22-2024 13:15-0400 Body temperature 97.11 [degF] Kristyn Blankenship MD Work Phone: [facility] 11-22-2024 08:25-0400 Body height 160 cm Kristyn Blankenship MD Work Phone: [facility] 11-22-2024 08:25-0400 Body mass index (BMI) [Ratio] 29.23 kg/m2 Kristyn Blankenship MD Work Phone: [facility] 11-22-2024 08:25-0400 Body weight 74.84 kg Kristyn Blankenship MD Work Phone: [facility] 11-05-2024 15:42-0400 Body height 160 cm Kristyn Blankenship MD Work Phone: [facility] 11-05-2024 15:42-0400 Body mass index (BMI) [Ratio] 29.23 kg/m2 Kristyn Blankenship MD Work Phone: [facility] 11-05-2024 15:42-0400 Body weight 74.84 kg Kristyn Blankenship MD Work Phone: [facility] 11-05-2024 15:42-0400 Diastolic blood pressure 64 mm[Hg] Kristyn Blankenship MD Work Phone: [facility] 11-05-2024 15:42-0400 Heart rate 65 /min Kristyn Blankenship MD Work Phone: [facility] 11-05-2024 15:42-0400 Respiratory rate 18 /min Kristyn Blankenship MD Work Phone: [facility] 11-05-2024 15:42-0400 SaO2% (BldA) [Mass fraction] 98 % Kristyn Blankenship MD Work Phone: [facility] 11-05-2024 15:42-0400 Systolic blood pressure 122 mm[Hg] Kristyn Blankenship MD Work Phone: [facility] 08-22-2024 10:32-0500 Body height 160 cm Henok Lantigua PA-C Work Phone: [facility] 08-22-2024 10:32-0500 Body mass index (BMI) [Ratio] 29.23 kg/m2 Henok Walkeron PA-C Work Phone: [facility] 08-22-2024 10:32-0500 Body weight 74.84 kg Henok Walkeron PA-C Work Phone: [facility] 08-22-2024 10:32-0500 Diastolic blood pressure 62 mm[Hg] Henok Walkeron PA-C Work Phone: [facility] 08-22-2024 10:32-0500 Respiratory rate 18 /min Henok Walkeron PA-C Work Phone: [facility] 08-22-2024 10:32-0500 Systolic blood pressure 104 mm[Hg] Henok Walkeron PA-C Work Phone: [facility] 08-16-2024 07:19-0500 Body temperature 97.59 [degF] Mariana King DO Work Phone: [facility] 08-16-2024 07:19-0500 Diastolic blood pressure 66 mm[Hg] Mariana King DO Work Phone: [facility] 08-16-2024 07:19-0500 Heart rate 85 /min Mariana King DO Work Phone: [facility] 08-16-2024 07:19-0500 Respiratory rate 18 /min Mariana King DO Work Phone: [facility] 08-16-2024 07:19-0500 SaO2% (BldA) [Mass fraction] 94 % Mariana King DO Work Phone: [facility] 08-16-2024 07:19-0500 Systolic blood pressure 135 mm[Hg] Marianaswati King DO Work Phone: [facility] 08-03-2024 08:32-0500 Body height 162 cm Mariana King DO Work Phone: [facility] 08-03-2024 08:32-0500 Body mass index (BMI) [Ratio] 28.58 kg/m2 Mariana King DO Work Phone: [facility] 08-03-2024 08:32-0500 Body weight 75 kg Mariana King DO Work Phone: [facility] 07-07-2024 06:03-0500 Body temperature 97.7 [degF] Wm Alexandrekola DO Work Phone: [facility] 07-07-2024 06:03-0500 Diastolic blood pressure 67 mm[Hg] Wm Aracelirakola DO Work Phone: [facility] 07-07-2024 06:03-0500 Heart rate 69 /min Wm Alexandrekola DO Work Phone: [facility] 07-07-2024 06:03-0500 Respiratory rate 12 /min Wm Alexandrekola DO Work Phone: [facility] 07-07-2024 06:03-0500 SaO2% (BldA) [Mass fraction] 94 % Wm Alexandrekola DO Work Phone: [facility] 07-07-2024 06:03-0500 Systolic blood pressure 149 mm[Hg] Wm Aracelirakola DO Work Phone: [facility] 07-05-2024 10:00-0500 Body height 162.6 cm Wm Alexandrekola DO Work Phone: [facility] 07-05-2024 10:00-0500 Body mass index (BMI) [Ratio] 27.46 kg/m2 Wm Aracelirakola DO Work Phone: [facility] 07-05-2024 10:00-0500 Body weight 72.58 kg Wm Aracelirakola DO Work Phone: [facility] 05-14-2024 15:34-0400 Body height 162.6 cm Jared Evans MD Work Phone: [facility] 05-14-2024 15:34-0400 Body mass index (BMI) [Ratio] 25.23 kg/m2 Jared Evans MD Work Phone: [facility] 05-14-2024 15:34-0400 Body weight 66.68 kg Jared Evans MD Work Phone: [facility] 04-25-2024 13:39-0400 Body height 162.6 cm Henok Hernandez PA-C Work Phone: [facility] 04-25-2024 13:39-0400 Body mass index (BMI) [Ratio] 25.23 kg/m2 Henok Hernandez PA-C Work Phone: [facility] 04-25-2024 13:39-0400 Body weight 66.68 kg Henok Hernandez PA-C Work Phone: [facility] 04-25-2024 13:39-0400 Diastolic blood pressure 66 mm[Hg] Henok Hernandez PA-C Work Phone: [facility] 04-25-2024 13:39-0400 Heart rate 98 /min Henok Hernandez PA-C Work Phone: [facility] 04-25-2024 13:39-0400 Respiratory rate 18 /min Henok Hernandez PA-C Work Phone: [facility] 04-25-2024 13:39-0400 SaO2% (BldA) [Mass fraction] 95 % Henok Hernandez PA-C Work Phone: [facility] 04-25-2024 13:39-0400 Systolic blood pressure 110 mm[Hg] Henok Hernandez PA-C Work Phone: [facility] 04-13-2024 08:04-0400 Heart rate 92 /min Winifred Huertasffey DO Work Phone: [facility] 04-13-2024 07:49-0400 Body temperature 97.2 [degF] Winifred Huertasffey DO Work Phone: [facility] 04-13-2024 07:49-0400 Diastolic blood pressure 89 mm[Hg] Winifred Huertasffey DO Work Phone: [facility] 04-13-2024 07:49-0400 Respiratory rate 20 /min Winifred Cornell DO Work Phone: [facility] 04-13-2024 07:49-0400 SaO2% (BldA) [Mass fraction] 98 % Winifred Cornell DO Work Phone: [facility] 04-13-2024 07:49-0400 Systolic blood pressure 156 mm[Hg] Winifred Cornell DO Work Phone: [facility] 04-03-2024 17:52-0400 Body height 162.6 cm Winifred Cornell DO Work Phone: [facility] 04-03-2024 17:52-0400 Body mass index (BMI) [Ratio] 27.38 kg/m2 Winifred Cornell DO Work Phone: [facility] 04-03-2024 17:52-0400 Body weight 72.35 kg Winifred Cornell DO Work Phone: [facility] 07-27-2023 14:23-0500 Body height 162.6 cm Ming Weinberg MD Work Phone: [facility] 07-27-2023 14:23-0500 Body mass index (BMI) [Ratio] 27.29 kg/m2 Ming Weinberg MD Work Phone: [facility] 07-27-2023 14:23-0500 Body weight 72.12 kg Ming Weinberg MD Work Phone: [facility] 05-14-2022 15:01-0400 Diastolic blood pressure 84 mm[Hg] Jared Velazquez PA-C Work Phone: [facility] 05-14-2022 15:01-0400 Systolic blood pressure 154 mm[Hg] Jared Velazquez PA-C Work Phone: [facility] 05-14-2022 14:32-0400 Body height 162.6 cm Jared Velazquez PA-C Work Phone: [facility] 05-14-2022 14:32-0400 Body weight 72.58 kg Jared Velazquez PA-C Work Phone: [facility] 05-14-2022 14:32-0400 Heart rate 71 /min Jared Velazquez PA-C Work Phone: [facility] 05-14-2022 14:32-0400 Respiratory rate 16 /min Jared Velazquez PA-C Work Phone: [facility] 05-14-2022 14:32-0400 SaO2% (BldA) [Mass fraction] 98 % Jared Velazquez PA-C Work Phone: [facility] 03-07-2020 09:57-0400 Body Temperature 98.71 [degF] [facility] [place] [place] [facility]-07-[facility] 09:57-0400 BP Diastolic 64 mm[Hg] [facility] [place] [facility] [place] 03-07-2020 09:57-0400 BP Systolic 161 mm[Hg] [facility] [place] [facility] [place] 03-07-2020 09:57-0400 Pulse (Heart Rate) 77 /min [facility] [place] [place] 03-07-2020 09:57-0400 Pulse Oximetry 96 % [facility] [place] [facility] [place] 03-07-2020 08:32-0400 Respiratory Rate 14 /min [facility] [place] [place] 02-08-2020 20:50-0400 Body Temperature 97.5 [degF] [facility] [place] [place] 02-08-2020 20:50-0400 BP Diastolic 81 mm[Hg] [facility] [place] [facility] [place] 02-08-2020 20:50-0400 BP Systolic 193 mm[Hg] [facility] [place] [facility] [place] 02-08-2020 20:50-0400 Pulse (Heart Rate) 68 /min [facility] [place] [place] 02-08-2020 20:50-0400 Pulse Oximetry 97 % [facility] [place] [facility] [place] 02-08-2020 20:50-0400 Respiratory Rate 16 /[facility] [place] Encounters Encounter Date Encounter Type Care Provider Facility Start: 03-28-2025 ambulatory Megan Stroudsaros OLS Faci lity:[facility] Start: 03-15-2025 End: 03-15-2025 Office outpatient visit 25 minutes Andre Patel MD Work Phone: [facility] Comment on above: Acute deep vein thro mbosis (DVT) of proximal vein of lower extremity, unspecified laterality (HCC) (Primary Dx) Start: 03-15-2025 End: 03-15-2025 ambulatory MEGAN MONTOYA [facility] Start: 03-04-2025 ambulatory Megan Stroudsaros OLS Faci lity:[facility] Start: 02-25-2025 ambulatory Megan Katsaros OLS Faci lity:[facility] Start: 02-18-2025 ambulatory Megan Katsaros OLS Faci lity:[facility] Start: 02-15-2025 ambulatory Megan Katsaros OLS Faci lity:[facility] Start: 02-11-2025 ambulatory Megan Katsaros OLS Faci lity:[facility] Start: 02-07-2025 ambulatory Megan Katsaros OLS Faci lity:[facility] Start: 02-04-2025 ambulatory Megan Katsaros OLS Faci lity:[facility] Start: 01-31-2025 ambulatory Megan Katsaros OLS Faci lity:[facility] Start: 01-28-2025 ambulatory Megan Katsaros OLS Faci lity:[facility] Start: 01-25-2025 ambulatory Megan Katsaros OLS Faci lity:[facility] Start: 01-23-2025 ambulatory Megan Katsaros OLS Faci lity:[facility] Start: 01-22-2025 ambulatory Megan Katsaros OLS Faci lity:[facility] Start: 01-21-2025 ambulatory Megna Katsaros OLS Faci lity:[facility] Start: 01-17-2025 ambulatory Megan Katsaros OLS Faci lity:[facility] Start: 01-16-2025 ambulatory Megan Katsaros OLS Faci lity:[facility] Start: 01-15-2025 ambulatory Megan Katsaros OLS Faci lity:[facility] Start: 01-07-2025 ambulatory Megan EEVRETT Faci lity:[facility] Start: 01-02-2025 End: 01-02-2025 Orders Only Namr[facility] Christ[facility] Comment on above: 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) Right retinal detach ment (Primary Dx); Hemorrhagic choroidal detachment of right eye; Pseudophakia, right eye Start: 12-24-2024 End: 12-24-2024 ambulatory MEGAN MONTOYA [facility] Start: 12-24-2024 End: 12-24-2024 Office outpatient visit 15 minutes Kristyn Blankenship MD [facility] Comment [facility]: Aftercare following surgery of the circulatory system (Primary Dx); PAD (peripheral artery disease) (HCC) Start: 12-13-2024 End: 02-12-2025 Follow-up encounter Shivani Rayo CNP Work Phone: [facility] [place] Comment on above: Vascular US lower ex tremity arterial duplex right with MICHELLE Start: 12-13-2024 End: 12-13-2024 ambulatory MEGAN STROUDFOZIA [facility] Start: 12-13-2024 End: 12-13-2024 Subsequent hospital visit by physician Kristyn Blankenship MD Work Phone: [facility] V[facility] Lab Comment on above: Skin ulcer of toe of right foot, limited to breakdown of skin (HCC); PAD (peripheral artery disease) (HCC); Aftercare following surgery of the circulatory system Start: 12-05-2024 End: 12-05-2024 [facility] Start: 12-05-2024 End: 12-05-2024 Office outpatient visit 10 minutes Kristyn Blankenship MD [facility] Comment on above: Skin ulcer of toe of right foot, limited to breakdown of skin (HCC) (Primary Dx); PAD (peripheral artery disease) (HCC); Aftercare following surgery of the circulatory system Start: 11-22-2024 End: 11-22-2024 [facility] Start: 11-22-2024 End: 11-22-2024 Subsequent hospital visit by physician Kristyn Blankenship MD Work Phone: [facility] Start: 11-15-2024 End: 11-15-2024 ambulatory Megan EVERETT Facility:[facility] Start: 11-09-2024 End: 11-13-2024 ambulatory Henok Darlyn [facility] 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 Work Phone: [facility] Work Phone: Start: 11-05-2024 End: 11-05-2024 ambulatory JARED EVANS [facility] Start: 11-05-2024 End: 11-05-2024 Office outpatient visit 25 minutes Kristyn Blankenship MD [facility] Comment on above: PAD (peripheral aidee ry disease) (HCC) (Primary Dx); Skin ulcer of toe of right foot, limited to breakdown of skin (HCC) Start: 10-08-2024 End: 10-08-2024 ambulatory Megan EVERETT [facility] Work Phone: Start: 10-08-2024 End: 10-08-2024 [facility] Start: 10-08-2024 [facility]istered [facility] Start: 10-08-2024 End: 10-08-2024 ambulatory Megan EVERETT Facility:[facility] Start: 10-01-2024 End: 10-01-2024 Patient encounter procedure Savana Lopez MD Work Phone: Ophthalmology Comment on above: 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); Right retinal detachment; Postoperative eye state; Pseudophakia, right eye; Subluxation of right lens Start: 10-01-2024 End: 10-01-2024 ambulatory SAVANA ISLASO Facility:[facility] Start: 09-17-2024 End: 09-17-2024 ambulatory Megan EVERETT [facility] Work Phone: Start: 09-17-2024 End: 09-17-2024 Departed Referred Megan BISWAS Start: 09-17-2024 Registered Referred Megan BISWAS Start: 09-17-2024 End: 09-17-2024 ambulatory Megan EVERETT Facility:[facility] Start: 09-10-2024 End: 09-10-2024 ambulatory Megan EVERETT [facility] Work Phone: Start: 09-10-2024 End: 09-10-2024 Departed Referred Megan BISWAS Start: 09-10-2024 Registered Referred Megan BISWAS Start: 09-10-2024 End: 09-10-2024 ambulatory Megan EVERETT Facility:[facility] Start: 09-05-2024 End: 09-05-2024 ambulatory SAVANA LOPEZ Facility:[facility] Start: 09-05-2024 End: 09-05-2024 Patient encounter procedure Savana Lopez MD Work Phone: Ophthalmology Comment on above: Postoperative eye st ate; Hemorrhagic choroidal detachment of right eye; Pseudophakia, right eye; Subluxation of right lens Start: 09-03-2024 End: 09-03-2024 ambulatory Megan EVERETT [facility] Work Phone: Start: 09-03-2024 End: 09-03-2024 Departed Referred Megan BISWAS Start: 09-03-2024 Registered Referred Megan BISWAS Start: 09-03-2024 End: 09-03-2024 ambulatory Megan EVERETT Facility:[facility] Start: 08-22-2024 End: 08-22-2024 ambulatory [facility] Start: 08-22-2024 End: 08-22-2024 Office outpatient visit 15 minutes Henok Lantigua PA-C Work Phone: [facility] Comment on above: Acute deep vein thro mbosis (DVT) of iliac vein of right lower extremity (HCC) (Primary Dx); PAD (peripheral artery disease) (HCC) Start: 08-20-2024 End: 08-20-2024 ambulatory Megan Stroudvictoriano MARGUERITE [facility] Work Phone: Start: 08-20-2024 End: 08-20-2024 Departed Referred Megan Montoya [facility] Start: 08-20-2024 End: 08-20-2024 ambulatory Megan Luannevictoriano EEVRETT Facility:[facility] Start: 08-03-2024 End: 08-03-2024 Subsequent hospital visit by physician [facility] Exam Room [address] [facility] [address] Comment on above: Arrived Start: 08-03-2024 End: 08-16-[address] [facility] Start: 08-03-2024 End: 08-16-2024 Emergency department patient visit Mariana King DO Work Phone: [facility] Comment on above: Aspiration pneumonit is (CMS/HCC) (HCC) (Primary Dx); Vomiting and diarrhea; LORENZA (acute kidney injury) (HCC) Start: 08-01-2024 End: 08-01-2024 ambulatory SAVANA LOPEZ Facility:[facility] Start: 08-01-2024 End: 08-01-2024 Patient encounter [...] Dx) Start: 07-27-2024 ambulatory SAVANA LOPEZ Facility: [facility] Start: 07-23-2024 End: 07-23-2024 ambulatory SAVANA LOPEZ Facility:[facility] Start: 07-23-2024 End: 07-23-2024 Patient encounter [...] 07-12-2024 Evaluation and management of inpatient SELF Facility:[facility] Start: 07-12-2024 End: 07-12-2024 Orders Only [...] 07-09-2024 Evaluation and management of inpatient SELF Facility:[facility] Start: 07-09-2024 End: 07-09-2024 Unlisted evaluation [...] Evaluation and management of inpatient RED HENDERSON Facility:[facility] Start: 07-07-2024 Emergency department patient visit PROVIDER NOT IN SYSTEM Facility:[facility] Start: 07-06-2024 End: 07-06-2024 Telephone encounter Ryan Elizondo MD Work Phone: Ophthalmology Start: 07-05-2024 End: 07-07-2024 ambulatory RED HENDERSON [facility] Start: 07-05-2024 End: 07-07-2024 Emergency department patient visit Wm Nunes DO Work Phone: [facility] PCU 3W Comment on above: Vision loss of right eye (Primary Dx); Acute intractable headache, unspecified headache type; Visual disturbance, subjective Start: 06-19-2024 End: 07-03-2024 ambulatory DEVIKA LEUNG Facility:[facility] Start: 06-19-2024 End: 07-03-2024 Subsequent hospital visit by physician Devika Leung DO Work Phone: [facility] PATI[facility] Comment on above: [I63.9] - Cerebral i nfarction Start: 06-10-2024 End: 06-19-2024 Evaluation and management of inpatient TORSTEN A SHIRA Facility:[facility] Start: 05-22-2024 End: 05-22-2024 ambulatory [facility] Start: 05-21-2024 End: 05-21-2024 ambulatory HARMONY [facility] Start: 05-21-2024 End: 05-21-2024 Anticoagulant drug monitoring [facility] Work Phone: [facility] Comment on above: Atrial fibrillation, unspecified type (HCC); Acute venous embolism and thrombosis of deep vessels of proximal end of right lower extremity (HCC) Start: 05-14-2024 End: 05-14-2024 Subsequent hospital visit by physician Jared Evans MD Work Phone: [facility] Non-Invasive Cardiology Comment on above: Paroxysmal atrial fi brillation (HCC) Start: 05-14-2024 End: 05-14-2024 ambulatory [facility] Start: 05-09-2024 End: 05-09-2024 ambulatory [facility] Start: 05-09-2024 End: 05-09-2024 Anticoagulant drug monitoring Patty Duggan [facility] Work Phone: [facility] Comment on above: Atrial fibrillation, unspecified type (HCC); Acute venous embolism and thrombosis of deep vessels of proximal end of right lower extremity (HCC) Start: 05-01-2024 End: 05-01-2024 ambulatory [facility] Start: 05-01-2024 End: 05-01-2024 Anticoagulant drug monitoring Won Tipton RN [facility] Comment on above: Atrial fibrillation, unspecified type (HCC); Acute venous embolism and thrombosis of deep vessels of proximal end of right lower extremity (HCC) Start: 04-27-2024 End: 04-27-2024 Refill Phyllis Aguilera RN Work Phone: [facility] Comment on above: Deep vein thrombosis (DVT) of lower extremity, unspecified chronicity, unspecified laterality, unspecified vein (HCC); Atrial fibrillation, unspecified type (HCC); Acute venous embolism and thrombosis of deep vessels of proximal end of right lower extremity (HCC) Start: 04-25-2024 End: 04-25-2024 Office outpatient visit 15 minutes Henok Hernandez PA-C Work Phone: [facility] Comment on above: Acute deep vein thro mbosis (DVT) of iliac vein of right lower extremity (HCC) (Primary Dx); PAD (peripheral artery disease) ([facility]) Start: 04-25-2024 End: 04-25-2024 ambulatory [facility] Start: 04-23-2024 End: 04-23-2024 ambulatory [facility] Start: 04-20-2024 End: 07-20-2024 Transcribe Orders Jared Evans MD Work Phone: [facility] Central Scheduling Comment on above: Paroxysmal atrial fi brillation (HCC) (Primary Dx) Start: 04-19-2024 End: 04-19-2024 [facility] Start: 04-19-2024 End: 04-19-2024 Anticoagulant drug monitoring Marybeth Rahman [facility] Anticoagulation Management Service Comment on above: Atrial fibrillation, unspecified type (HCC); Acute venous embolism and thrombosis of deep vessels of proximal end of right lower extremity (HCC) Start: 04-16-2024 End: 04-16-2024 ambulatory ANTHONY YEE [facility] Start: 04-14-2024 End: 04-14-2024 Anticoagulant drug monitoring Ulices JacobD [facility] Comment on above: Deep vein thrombosis (DVT) of lower extremity, unspecified chronicity, unspecified laterality, unspecified vein (HCC) (Primary Dx) Start: 04-03-2024 End: 04-13-2024 Evaluation and management of inpatient Winifred Cornell DO Work Phone: [facility] Medical Unit 4N Comment on above: Ischemic leg (Primar y Dx); Right leg pain; Peripheral arterial disease (HCC); Right leg weakness; Atrial fibrillation, unspecified type (HCC) Start: 07-27-2023 End: 07-27-2023 Office outpatient new 30 minutes Ming Weinberg MD Work Phone: [facility] Comment on above: 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) Start: 06-15-2023 End: 06-15-2023 Subsequent hospital visit by physician Jared Evans MD Work Phone: [facility] MRI Comment on above: Abnormal findings on diagnostic imaging of other specified body structures; Pain in left leg Start: 06-01-2023 Transcribe Orders Jared Evans MD Work Phone: [facility] Central Scheduling Comment on above: Abnormal findings on diagnostic imaging of other specified body structures (Primary Dx); Pain in left leg Start: 05-24-2023 End: 05-24-2023 Subsequent hospital visit by physician Jared Evans MD Work Phone: [facility] Comment on above: Other specified soft tissue disorders Start: 05-23-2023 Transcribe Orders Jared Evans MD Work Phone: [facility] Comment on above: Other specified soft tissue disorders (Primary Dx) Start: 03-08-2023 End: 03-08-2023 Subsequent hospital visit by physician Jared Evans MD Work Phone: [facility] CT Comment on above: Localized swelling, mass and lump, neck Start: 02-28-2023 Transcribe Orders Jared Evans MD Work Phone: [facility] Comment on above: Localized swelling, mass and lump, neck (Primary Dx) Start: 02-22-2023 End: 02-22-2023 Subsequent hospital visit by physician Jared Evans MD Work Phone: [facility] Comment on above: Localized swelling, mass and lump, neck Start: 02-17-2023 Transcribe Orders Jared Evans MD Work Phone: [facility] Comment on above: Localized swelling, mass and lump, neck (Primary Dx) Start: 07-06-2022 Telephone encounter Inés Tubbs RN NOC Comment on above: Follow Up Phone Call (All Clear) Start: 06-21-2022 End: 06-21-2022 Evaluation and management of inpatient SIM ELIZABETH Facility:[facility] Start: 06-19-2022 ambulatory [facility] [place] 41 00 CARD/HF/PD Start: 06-16-2022 End: 06-29-2022 Evaluation and management of inpatient BERNIE BIRD Facility:[facility] Start: 05-27-2022 Telephone encounter Jared pennington MD Work Phone: NOC Comment on above: Follow Up (Gyant int eraction - F/U - attempt made. No answer.) Start: 05-17-2022 End: 05-17-2022 Patient encounter procedure Josiah Barnes MD Work Phone: Otolaryngology Comment on above: Acute bacterial sial adenitis (Primary Dx); Bashir's, angina Start: 05-14-2022 End: 05-14-2022 Patient encounter procedure Jared Velazquez PA-C Work Phone: [facility] Comment on above: Salivary gland swell ing (Primary Dx) Start: 03-07-2020 End: 03-07-2020 Subsequent hospital visit by physician Jayla Mcmahan Work Phone: [facility] Surgery Comment on above: S/P surgical amputat ion of finger, right (Primary Dx); Finger osteomyelitis, right (HCC) Start: 03-06-2020 End: 03-06-2020 Subsequent hospital visit by physician Jayla Mcmahan Work Phone: [facility] Start: 02-08-2020 End: 02-08-2020 Emergency department patient visit Maryuri King [facility] ED Comment on above: Felon of [...] Luanne acevedoallison EVERETT Start: 08-22-2024 Follow-up visit RED HENDERSON [...] Start: 07-05-2024 Ct angiography head w/contrast/noncontrast Wm Aracelirakola DO Work Phone: Start: 07-05-2024 End: 07-05-2024 [...] RED HENDERSON Start: 05-21-2024 Prothrombin time Histor icaweston Haywood MD Work Phone: Start: 05-14-2024 Echo [...] on above: Performed By: #### L [id number] ####Pre Press Operator: VELMA VALADEZ ([phone])[facility] ([facility])[address] [place] [address] Start: 04-06-2024 Blood typing serologic abo Kristyn [...] abdl aorta&bi il iofem w/contrast&postp Bernie Cutler MARKETING STRATEGY LEAD - CLEAN ROOM TECHNICIAN Work Phone: Start: 04-03-2024 Ct head/brain w/o co ntrast material Bernie Cutler MARKETING STRATEGY LEAD - CLEAN ROOM TECHNICIAN Work Phone: Start: 04-03-2024 Comprehensive metabo lic panel Bernei Cutler MARKETING STRATEGY LEAD - CLEAN ROOM TECHNICIAN Work Phone: Start: 04-03-2024 Ecg routine ecg w/le ast 12 lds trcg only w/o i&r Bernie Cutler MARKETING STRATEGY LEAD - CLEAN ROOM TECHNICIAN Work Phone: Start: 06-15-2023 Mri lower extrem oth /thn jt w/o & w/contr matr Jared Evans MD Work Phone: Start: 05-24-2023 Dup-scan xtr veins unilateral/limited study Jared Evans MD Work Phone: Start: 06-21-2022 Antibody screen BERNIE BIRD Comment on above: Order Comment: Speci men Type: BLOOD SPECIMEN Ordering Facility: [facility] Address: [place] [address] Performed By: #### T SCR #### [facility] CLIA [id number] 1 [place] [address] [place] Start: 03-07-2020 OPERATIVE REPORT 3m Sca nning Start: 02-08-2020 INCISION AND DRAINAGE R mona Mora Work Phone: Plan of Treatment Date Care Activity Detail Author Start: 02-15-2029 DTaP/Tdap/Td vaccine (2 - Td) DTaP/Tdap/Td vaccine (2 - Td) [place] Start: 02-15-2029 DTaP/Tdap/Td Vaccines (2 - Td or Tdap) DTaP/Tdap/Td Vaccines (2 - Td or Tdap) [facility] Start: 02-15-2029 Urine microalbumin profile DTaP,Tdap,Td Vaccine (2 - Td or Tdap) [facility] Start: 08-05-2027 Diabetes Screening Diabetes Screening [facility] Start: 07-07-2027 Diabetes Screening Diabetes Screening [facility] Start: 07-06-2027 Diabetes Screening Diabetes Screening [facility] Start: 06-21-2027 Diabetes Screening Diabetes Screening [facility] Start: 08-16-2025 End: 01-23-2026 OCT MACULA CIRRUS OD (RIGHT EYE) OCT MACULA CIRRUS OD (RIGHT EYE) [facility] Imaging Routine Postoperative eye state 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, right eye Subluxation of right lens Expected: 08/16/2025, Expires: 01/23/2026 [facility] Work Phone: Comment on above: Expected: 08/16/2025, Expires: Start: 08-05-2025 Diabetes: Estimated Glomerular Filtration Rate for Kidney Health Diabetes: Estimated Glomerular Filtration Rate for Kidney Health [facility] Start: 08-04-2025 Diabetes: Estimated Glomerular Filtration Rate for Kidney Health Diabetes: Estimated Glomerular Filtration Rate for Kidney Health [facility] Start: 07-31-2025 End: 01-07-2026 Right eye Photo documentation FUNDUS PHOTOS OD (RIGHT EYE) [facility] Imaging Routine Postoperative eye state 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, right eye Subluxation of right lens Expected: 07/31/2025, Expires: 01/07/2026 [facility] Work Phone: Comment on above: Expected: 07/31/2025, Expires: Start: 07-07-2025 Diabetes: Estimated Glomerular Filtration Rate for Kidney Health Diabetes: Estimated Glomerular Filtration Rate for Kidney Health [facility] Start: 06-24-2025 DIABETES SCREEN DIABETES SCREEN [facility] Start: 06-10-2025 Thyroid stimulating hormone measurement TSH Level [facility] Start: 05-18-2025 DIABETES SCREEN DIABETES SCREEN [facility] Start: 03-18-2025 Influenza vaccination [facility] Start: 03-15-2025 End: 03-15-2025 Patient encounter procedure 03/15/2025 11:15 AM EDT Office Visit [facility] [address] [place] [phone] Andre Patel MD [address] [facility] [address] [place] [address] [facility] Start: 01-02-2025 End: 01-02-2025 Patient encounter procedure 01/02/2025 9:45 AM EDT Office Visit [facility] [address] [place], [place] [phone] Savana Lopez MD [address] [place] [address] *3 M, DFE Ophthalmology Comment on above: *3 M, DFE Start: 12-24-2024 End: 12-24-2024 Patient encounter procedure 12/24/2024 2:30 PM EDT Office Visit [facility] [address] [place] [phone] Kristyn Blankenship MD [address] [place] [address] [facility] Start: 12-05-2024 End: 12-05-2024 Patient encounter procedure 12/05/2024 10:00 AM EDT Office Visit [facility] [place] [address] [place] [phone] Kristyn Blankenship MD [address] [place] [phone] [facility] [place] Start: 11-22-2024 End: 11-22-2024 Admission to same day surgery center 11/22/2024 9:30 AM EDT - 11/22/2024 11:30 AM EDT Surgery [facility] MAIN OR [address] [place] [address] Kristyn Blankenship MD [address] [place] [address] [phone] AORTOILIAC ANGIOGRAPHY, RIGHT LOWER EXTREMITY ANGIOGRAPHY WITH RUNOFF, POSSIBLE SUPERFICIAL FEMORAL ARTERY/POPLITEAL/TIBIAL ANGIOPLASTY/STENTING [02490 (CPT )] [facility] MA[facility] OR Comment on above: AORTOILIAC ANGIOGRAPHY, RIGHT LOWER EXTR EMITY ANGIOGRAPHY WITH RUNOFF, POSSIBLE SUPERFICIAL FEMORAL ARTERY/POPLITEAL/TIBIAL ANGIOPLASTY/STENTING [76708 (CPT )] Start: 11-22-2024 End: 11-22-2024 Angiography extremity unilateral rs&i ANGIOGRAM, EXTREMITY Skin ulcer of right great toe (HCC) Critical limb ischemia of right lower extremity (HCC) 11/22/2024 9:30 AM EDT [facility] Operating Room Start: 11-22-2024 Subsequent hospital visit by physician 11/22/2024 9:30 AM EDT Hospital Encounter [facility] OR [address] [place] [address] Kristyn Blankenship MD [address] [place] [phone] [facility] MAIN OR Start: 11-20-2024 Subsequent hospital visit by physician 11/20/2024 Hospital Encounter [facility] OR [address] [place] [address] Kristyn Blankenship MD [address] [place] [phone] [facility] OR Start: 11-13-2024 End: 11-13-2025 Basic metabolic 1998 panel - Serum or Plasma Basic metabolic panel Lab Routine Pre-op evaluation Expected: 11/13/2024 (Approximate), Expires: 11/13/2025 [facility] Comment on above: Expected: 11/13/2024 (Approximate), Expi res: 11/13/2025 Start: 11-13-2024 End: 11-13-2025 CBC W Auto Differential panel - Blood CBC auto differential Lab Routine Pre-op evaluation Expected: 11/13/2024 (Approximate), Expires: 11/13/2025 [facility] Work Phone: Comment on above: Expected: 11/13/2024 (Approximate), Expi res: 11/13/2025 Start: 10-01-2024 End: 10-01-2024 Patient encounter procedure 10/01/2024 10:30 AM EDT Office Visit [facility] [address] [address] Savana Lopez MD [address] [place], [place] [phone] 26 Day F/U ~ DFE OD bscan OD . Ophthalmology Comment on above: 26 Day F/U ~ DFE OD bscan OD . Start: 08-22-2024 End: 08-22-2024 Patient encounter procedure 08/22/2024 10:30 AM EST Office Visit [facility] [place] [address] [place] [phone] Henok Lantigua PA-C [address] [place], [place] [phone] [facility] [place] Start: 08-15-2024 End: 08-15-2024 Patient encounter procedure 08/15/2024 9:45 AM EST Office Visit [facility] [address] [place] [address] Savana Lopez MD [address] [place] [address] *1 month post op Ophthalmology Comment on above: *1 month post op Start: 08-06-2024 End: 08-06-2024 Patient encounter procedure 08/06/2024 11:00 AM EST Office Visit [facility] [place] [address] [place] [phone] Henok Lantigua PA-C [address] [place] [address] [facility] Start: 08-01-2024 End: 08-01-2024 Patient encounter procedure Ophthalmology Comment on above: *1 week post op Start: 07-31-2024 End: 07-31-2024 Patient encounter procedure [facility] Start: 07-27-2024 End: 07-27-2024 Admission to same day surgery center 07/27/2024 10:50 AM EST - 07/27/2024 12:40 PM EST Surgery Ophthalmology [address] [address] Savana Lopez MD [address] [place] [address] [address] [facility] PARS PLANA APPROACH W/ REMOVAL OF PRERETINAL CELLULAR MEMBRANE Ophthalmology Comment on above: VITRECTOMY [address]G 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 PARS PLANA APPROACH W/ REMOVAL OF PRERETINAL CELLULAR MEMBRANE Hemorrhagic choroidal detachment of right eye 07/27/2024 10:50 AM EST [facility] Start: 07-23-2024 End: 07-23-2024 Patient encounter procedure 07/23/2024 10:45 AM EST Office Visit [facility] [address] [address] Savana Lopez MD [address] [place] [address] *1 W, DFE OD/BSCAN OD/OPTOS OD Ophthalmology Comment on above: *1 W, DFE OD/BSCAN OD/OPTOS OD Start: 07-18-2024 Advance Directive Discussion Advance Directive Discussion [facility] Start: 07-18-2024 Medicare Advantage Annual Wellness Visit Medicare Advantage Annual Wellness Visit [facility] Start: 07-16-2024 End: 07-16-2024 Patient encounter [...] of right eye 07/13/2024 2:04 PM EST [facility] Start: 07-13-2024 End: 07-13-2024 Evaluation and management of inpatient 07/13/2024 2:04 PM EST - 07/13/2024 3:24 PM EST Surgery Ophthalmology [address] [address] Savana Lopez MD [address] [place] [address] ASPIRATION VITREOUS, CHOROIDAL FLUID, PARS PLANA APPROACH Ophthalmology Comment on above: ASPIRATION VITREOUS, CHOROIDAL FLUID, PA RS PLANA APPROACH Start: 06-04-2024 End: 05-21-2025 POCT Prothrombin Time INR ([facility]) POCT Prothrombin Time INR ([facility]) Lab Routine Atrial fibrillation, unspecified type (HCC) Acute venous embolism and thrombosis of deep vessels of proximal end of right lower extremity (HCC) Expected: 06/04/2024, Expires: 05/21/2025 [facility] Work Phone: Comment on above: Expected: 06/04/2024, Expires: Start: 06-04-2024 End: 06-04-2024 Anticoagulant drug monitoring 06/04/2024 1:15 AM EST Anticoagulation - [facility] [address] [place] [address] [facility] Start: 05-22-2024 End: 05-22-2024 Patient encounter procedure 05/22/2024 3:00 PM EST Office Visit [facility] [address] [facility] [address] [place] [phone] Hermila Padilla MD [address] [facility] [address] [place], [place] [phone] [facility] [place] Start: 05-22-2024 End: 05-22-2024 Anticoagulant drug monitoring 05/22/2024 12:45 AM EST Anticoagulation - Warfarin [facility] [address] [place] [phone] [facility] Start: 05-14-2024 End: 05-14-2024 Patient encounter procedure 05/14/2024 2:00 PM EDT Appointment [facility] Non-Invasive Cardiology [address] [place] [phone] [facility] Non-Invasive Cardiology Start: 05-08-2024 End: 05-01-2025 POCT Prothrombin Time INR ([facility]) POCT Prothrombin Time INR ([facility]) Lab Routine Atrial fibrillation, unspecified type (HCC) Acute venous embolism and thrombosis of deep vessels of proximal end of right lower extremity (HCC) Expected: 05/08/2024 (Approximate), Expires: 05/01/2025 [facility] Work Phone: Comment on above: Expected: 05/08/2024 (Approximate), Expi res: 05/01/2025 Start: 05-08-2024 End: 05-08-2024 Anticoagulant drug monitoring 05/08/2024 1:30 AM EDT Anticoagulation - Other [facility] [address] [place] [phone] [facility] Start: 05-01-2024 End: 05-01-2024 Anticoagulant drug monitoring 05/01/2024 Anticoagulation - Warfarin [facility] [address] [place] [phone] [facility] Start: 04-23-2024 End: 04-19-2025 POCT Prothrombin Time INR ([facility]) POCT Prothrombin Time INR ([facility]) Lab Routine Atrial fibrillation, unspecified type (HCC) Acute venous embolism and thrombosis of deep vessels of proximal end of right lower extremity (HCC) Expected: 04/23/2024 (Approximate), Expires: 04/19/2025 [facility] Work Phone: Comment on above: Expected: 04/23/2024 (Approximate), Expi res: 04/19/2025 Start: 04-23-2024 End: 04-23-2024 Patient encounter procedure 04/23/2024 9:15 AM EDT Office Visit [facility] [place] [address] [place] [phone] Henok Hernandez PA-C [address] [place] [address] [facility] [place] Start: 04-23-2024 End: 04-23-2024 Anticoagulant drug monitoring 04/23/2024 1:15 AM EDT Anticoagulation - Warfarin [facility] [address] [place] [phone] [facility] Start: 04-19-2024 End: 04-19-2024 Anticoagulant drug monitoring 04/19/2024 1:00 AM EDT Anticoagulation - Warfarin [facility] [address] [place] [phone] [facility] Start: 04-16-2024 End: 04-16-2025 POCT Prothrombin Time INR ([facility]) POCT Prothrombin Time INR ([facility]) Lab Routine Deep vein thrombosis (DVT) of lower extremity, unspecified chronicity, unspecified laterality, unspecified vein (HCC) Expected: 04/16/2024, Expires: 04/16/2025 [facility] Work Phone: Comment on above: Expected: 04/16/2024, Expires: Start: 03-18-2024 Covid-19 Vaccine () Covid-19 Vaccine () [facility] Start: 03-18-2024 Influenza vaccination Influenza Vaccine (#1) [facility] Start: 07-18-2023 Advance Directive Discussion Advance Directive Discussion [facility] Start: 07-18-2023 Medicare Advantage Annual Wellness Visit Medicare Advantage Annual Wellness Visit [facility] Start: 03-18-2023 Influenza vaccination Influenza Vaccine (#1) [facility] Start: 03-18-2022 Influenza vaccination INFLUENZA (#1) [facility] Start: 07-18-2021 ADVANCE DIRECTIVE DISCUSSION ADVANCE DIRECTIVE DISCUSSION [facility] Start: 07-18-2021 DEPRESSION ASSESSMENT DEPRESSION ASSESSMENT [facility] Start: 03-18-2020 Influenza vaccination [facility] Start: 03-13-2020 End: 03-13-2020 Office Visit 03/13/2020 Office Visit Orthopedic Surgery Jayla Mcmahan MD [address] [facility] [address] [place] [address] [phone] [facility] Start: 03-07-2020 Hospital Encounter 03/07/2020 Hospital Encounter IP Unit Jayla Mcmahan MD [address] [facility] [address] [place] [address] [phone] [facility] Dept Start: 03-06-2020 Annual Wellness Visit (AWV) Annual Wellness Visit (AWV) [facility] Start: 04-12-2019 Pneumococcal Vaccine: 50+ Years (2 of 2 - PPSV23) Pneumococcal Vaccine: 50+ Years (2 of 2 - PPSV23) [facility] Start: 04-12-2019 Pneumococcal Vaccine: 65+ Years (2 - PPSV23 if available, else PCV20) Pneumococcal Vaccine: 65+ Years (2 - PPSV23 if available, else PCV20) [facility] Start: 04-12-2019 Pneumococcal Vaccine: 65+ Years (2 - PPSV23 or PCV20) Pneumococcal Vaccine: 65+ Years (2 - PPSV23 or PCV20) [facility] Start: 04-12-2019 Pneumococcal Vaccine: 65+ Years (2 of 2 - PPSV23 or PCV20) Pneumococcal Vaccine: 65+ Years (2 of 2 - PPSV23 or PCV20) [facility] Start: 02-13-2016 DIABETES SCREEN DIABETES SCREEN [facility] Start: 09-24-2014 RSV Immunization for Adults (1 - 1-dose 75+ series) RSV Immunization for Adults (1 - 1-dose 75+ series) [facility] Start: 04-23-2010 DIABETES SCREEN DIABETES SCREEN [facility] Start: 09-24-2004 BONE DENSITY BONE DENSITY [facility] Start: 09-24-2004 Pneumococcal 65+ years Vaccine (2 of 2 - PPSV23) Pneumococcal 65+ years Vaccine (2 of 2 - PPSV23) [place] Start: 09-24-2004 PNEUMOCOCCAL: 65+ (1 - PCV) PNEUMOCOCCAL: 65+ (1 - PCV) [facility] Start: 09-24-2004 Screening for osteoporosis Bone Density Screening [facility] Start: 1999 RSV Immunization aged 60 or older (1 - 1-dose 60+ series) RSV Immunization aged 60 or older (1 - 1-dose 60+ series) [facility] Start: 09-24-1994 Screening for osteoporosis DEXA (modify frequency per FRAX score) [place] Start: 09-24-1989 Shingles Vaccine (1 of 2) Shingles Vaccine (1 of 2) [place] Start: 09-24-1989 SHINGRIX VACCINE (1 of 2) SHINGRIX VACCINE (1 of 2) [facility] Start: 09-24-1989 Zoster Vaccines (1 of 2) Zoster Vaccines (1 of 2) [facility] Start: 09-24-1958 Urine microalbumin profile DTAP,TDAP,TD (1 - Tdap) [facility] Start: 09-24-1958 Zoster Vaccines (1 of 2) Zoster Vaccines (1 of 2) [facility] Start: 09-24-1957 Anxiety Screening Anxiety Screening [facility] Start: 09-24-1957 Depression Screening Depression Screening [facility] Start: 09-24-1957 Diabetes: Urine Albumin-Creatinine Ratio for [facility]ney Health Diabetes: Urine Albumin-Creatinine Ratio for Kidney Health [facility] Start: 09-24-1957 SPIROMETRY SPIROMETRY [facility] Start: 1951 Depression Monitoring Depression Monitoring [facility] Start: 1951 Depresssion Monitoring Depresssion Monitoring [facility] Start: 09-24-1945 PNEUMOCOCCAL: 65+ (1 - PCV) PNEUMOCOCCAL: 65+ (1 - PCV) [facility] Start: 09-24-1944 COVID-19 Vaccine (#1) COVID-19 Vaccine (#1) [facility] Start: 03-27-1940 COVID-19 VACCINE (#1) COVID-19 VACCINE (#1) [facility] Start: 1939 Creatinine measurement Creatinine monitoring [facility] [place] [place] Start: 1939 Lipid panel Lipid Panel [facility] Start: 1939 Medicare Advantage Annual Wellness Visit (AWV) Medicare Advantage Annual Wellness Visit (AWV) [facility] Start: 1939 Potassium monitoring Potassium [facility] [place] [place] Start: 1939 Screening for osteoporosis Bone Density Scan [facility] Start: 1939 Thyroid stimulating hormone measurement TSH Level [facility] Angiography extremit y unilateral rs&i AORTOGRAM, WITH SERIALOGRAPHY Critical limb ischemia of right lower extremity (HCC) [facility] Operating Room Aortography abdomina l serialography rs&i AORTOGRAM, WITH SERIALOGRAPHY Critical limb ischemia of right lower extremity (HCC) [facility] Operating Room BSCAN OD (RIGHT EYE) BSCAN OD (R IGHT EYE) [facility] Imaging Routine Hemorrhagic choroidal detachment of right eye 07/09/2024 9:09 AM EST [facility] Work Phone: End: 01-03-2026 BSCAN OD (RIGHT EYE) BSCAN OD (RIGHT EYE) [facility] Imaging Routine Hemorrhagic choroidal detachment of right eye Dislocation of intraocular lens, initial encounter 1 Occurrences starting 07/12/2024 until 01/03/2026 [facility] Work Phone: Comment on above: 1 Occurrences starting 07/12/2024 until 01/03/2026 End: 01-07-2026 BSCAN OD (RIGHT EYE) BSCAN OD (RIGHT EYE) OPHT Imaging Routine Postoperative eye state 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, right eye Subluxation of right lens 1 Occurrences starting 07/16/2024 until 01/07/2026 [facility] Comment on above: 1 Occurrences starting 07/16/2024 until 01/07/2026 End: 02-27-2026 BSCAN OD (RIGHT EYE) BSCAN OD (RIGHT EYE) OPHT Imaging Routine Postoperative eye state 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, right eye Subluxation of right lens 1 Occurrences starting 09/05/2024 until 02/27/2026 [facility] Work Phone: Comment on above: 1 Occurrences starting 09/05/2024 until 02/27/2026 Camera fundoscopy FUNDUS PHOTOS OU (BOTH EYES) OPHT Imaging Routine Hemorrhagic choroidal detachment of right eye 07/09/2024 8:35 AM EST [facility] End: 03-08-2023 CT [facility] Comment on above: Once for 1 Occurrences starting 03/08/20 until 03/08/2023 Incision/Drainage Incision/Drain age Procedures Routine 02/08/2020 7:17 PM EDT [facility] [place] OUT[place] PROCEDURE SCAN OUTSIDE P ROCEDURE SCAN Procedures Ordered: 02/21/2023 [facility] Comment on above: Ordered: 02/21/2023 OUTSIDE PROCEDURE SCAN OUTSIDE P ROCEDURE SCAN Procedures Ordered: 03/07/2023 [facility] Comment on above: Ordered: 03/07/2023 OUTSIDE PROCEDURE SCAN OUTSIDE P ROCEDURE SCAN Procedures Ordered: 05/24/2023 [facility] Comment on above: Ordered: 05/24/2023 OUTSIDE PROCEDURE SCAN OUTSIDE P ROCEDURE SCAN Procedures Ordered: 06/14/2023 [facility] Comment on above: Ordered: 06/14/2023 Oxygen therapy [Minimum Data Set] Initiate Oxygen Therapy Protocol Respiratory Care Routine Daily until discontinued [facility]07[facility]2020 [facility] [place] [place] Comment on above: Daily until discontinued starting 2019 End: 02-22-2023 US Head and neck soft tissue [facility] Work Phone: Comment on above: Once for 1 Occurrences starting 02/23/20 until 02/22/2023 End: 03-06-2020 XR FINGER RIGHT (MIN 2 VIEWS) XR FINGER RIGHT (MIN 2 VIEWS) Imaging Routine Once for 1 Occurrences starting 03/06/2020 until 03/06/2020 [place] Comment on above: Once for 1 Occurrences starting 03/06/20 until 03/06/2020 XR FINGER RIGHT (MIN 2 VIEWS) XR FINGER RIGHT (MIN 2 VIEWS) Imaging Routine 03/06/2020 10:20 AM EDT [facility] Immunizations Immunization Date Immunization Notes Care Provider Fa [facility] 05-19-2021 Influenza, High-dose Seasonal, Quadrivalent, Preservative Free Ming Weinberg MD Work Phone: [facility] 05-19-2021 influenza virus vaccine, unspecified formulation Jared Evans MD Work Phone: [facility] 02-15-2019 pneumococcal conjuga te vaccine, 13 valent Ming Weinberg MD Work Phone: [facility] 02-15-2019 tetanus toxoid, redu larissa diphtheria toxoid, and acellular pertussis vaccine, adsorbed Ming Weinberg MD Work Phone: [facility] 06-29-2013 influenza, high dose seasonal, preservative-free Ming Weinberg MD Work Phone: [facility] NEGATED: Highlighted row has not occurred!04-05-2024 Seasonal trivalent influenza vaccine, adjuvanted, preservative free Winifred Cornell DO Work Phone: [facility] Comment on above: Deferred: Patient Re fused Payers Date Payer Category Payer Self-pay 2023 Private Health Insurance HUMANA HUMANA MEDICARE SUPPLEMENT [id number] 2023-[address]23 [address] [place] [id number] Commercial [id number] 2017 Medicare [id number] 2017 Medicare (Managed Care) NADEGE LUZ [id number] 2017 Medicare HMO HUMANA MEDICARE [id number] 2017 Medicare [id number]. [id number] 1940 Unknown [id number] 2.16.840.1.774839.3.579. 2.594 Unknown [id number]. 1.13.159. 2.7.3.473964.315 Unknown [id number] Unknown [id number] 2.16.840.1.901227.3.579. 2.462 Unknown [id number] 2.16.840.1.034385.3.579. 2.462 Unknown [id number] 2.840.1.108500.3.579. 2.462 Unknown [id number] 2.16840.1.871778.3.579. 2.462 Unknown [id number] 2.840.1.270663.3.579. 2.462 Unknown [id number] 2.840.1.122910.3.579. 2.462 Unknown [id number] 2.840.1.828593.3.579. 2.462 Unknown [id number] 2.840.1.302918.3.579. 2.462 Unknown [id number] 2.840.1.723560.3.579. 2.462 Unknown [id number] 2.840.1.918158.3.579. 2.462 Unknown [id number] 2.840.1.503318.3.579. 2.462 Unknown [id number] 2.840.1.103929.3.579. 2.462 Unknown [id number] 2.840.1.126191.3.579. 2.462 Unknown [id number] 2.840.1.328382.3.579. 2.462 Unknown [id number] 2.840.1.865142.3.579. 2.462 Unknown [id number] .840.1.924578.3.579. 2.462 Unknown [id number] 2.840.1.596436.3.579. 2.462 Unknown [id number] 2.840.1.168707.3.579. 2.462 Unknown [id number] 2.840.1.840575.3.579. 2.462 Unknown [id number] 2.16.840.1.834994.3.579. 2.462 Unknown [id number] 2.16.840.1.907238.3.579. 2.462 Unknown [id number] 2.16.840.1.425095.3.579. 2.462 Unknown [id number] 2.16.840.1.247585.3.579. 2.462 Unknown [id number] 2.16.840.1.522437.3.579. 2.462 Unknown [id number] 2.16.840.1.801829.3.579. 2.462 Unknown [id number] 2.16.840.1.368055.3.579. 2.462 Social History Date Type Detail Facility Start: 02-08-2020 Tobacco smoking stat [facility] Current some day smoker [place] Start: 02-08-2020 End: 04-20-2024 Alcohol intake Current drinker of alcohol (finding) [place] Start: 02-08-2020 End: 05-22-2024 Alcohol Comment occ [place], [place] Start: 1940 Sex Assigned At Not on file M [place], [place] Start: 05-04-2022 End: 03-08-2023 Exposure to SARS-CoV-2 (event) Not sure [place] Start: 03-06-2020 End: 04-25-2024 Tobacco smoking status NHIS Former smoker [place] Start: 03-06-2020 End: 04-25-2024 Tobacco use and exposure Never used [place] [facility] consumption unknown [facility] Start: 05-17-2022 End: 04-04-2024 Tobacco smoking status NHIS Smokes tobacco daily [facility] History of tobacco use Cigarette Smoker C [facility] Start: 05-17-2022 End: 08-11-2024 Cigarettes smoked current (pack per day) - Reported 0.5 [facility] Start: 05-18-2022 History SDOH Financial 5 [facility] Start: 05-18-2022 History SDOH Food Worry 1 [facility] Start: 05-18-2022 History SDOH Transpo rt Med 2 [facility] Start: 07-05-2022 End: 03-15-2025 Alcohol intake Ex-drinker (finding) [facility] History of tobacco use Current smoker [facility] Start: 07-27-2023 End: 08-11-2024 Gender identity Not on file [facility] How often do you nee d to have someone help you when you read instructions, pamphlets, or other written material from your doctor or pharmacy [SILS] Never [facility] Has the [employer], or water [employer] threatened to shut off services in your home in past 12Mo No [facility] Are you now , , , , never or living with a partner? [facility] How often to you hav e a drink containing alcohol? Monthly or less [facility] How often do you hav e 6 or more drinks on 1 occasion? Never [facility] How hard is it for y ou to pay for the very basics like food, housing, medical care, and heating Not very hard [facility] Do you feel stress - tense, restless, nervous, or anxious, or unable to sleep at night because your mind is troubled all the time - these days [OSQ] Not at all [facility] (I/We) worried wheth er (my/our) food would run out before (I/we) got money to buy more. Never true [facility] Start: 02-15-2022 End: 10-25-2024 Sex Female (finding) [facility] Start: 1940 Sex assigned at Female S [facility] Start: 08-03-2024 Gender identity Identifies as female gender (finding) [facility] Start: 08-03-2024 Sexual orientation Heterosexual (fin ding) [facility] NEGATED: Highlighted rowStart: NINF History of tobacco use Passive smoker [facility] Medical Equipment Procedure Code Equipment Code Equipment Origin al Text Equipment Identifier Dates Gas Ispan [employer] Intraocular Vision System [id number] - [id number] Start: 07-27-2024 Stent Vasc 6x40x 125 6f lver [facility] - [id number] Start: 11-22-2024 Stent Oliva [id number] 25 6f [employer] - [facility] - [id number] Start: 11-22-2024 Functional Status Date Assessment Result Facility 07-18-2024 Are you deaf, or do you have serious difficulty hearing No 07/18/2024 12:17 PM Jaci Umana RN No [facility] 07-18-2024 Are you blind, or do you have serious difficulty seeing, even when wearing glasses Yes 07/18/2024 12:17 PM Jaci Umana, RADHA Yes [facility] 07-18-2024 Do you have serious difficulty walking or climbing stairs Yes 07/18/2024 12:17 PM Jaci Umana RN Yes [facility] 07-18-2024 Do you have difficul ty dressing or bathing Yes 07/18/2024 12:17 PM Jaci Umana, RADHA Yes [facility] 07-18-2024 Because of a physica l, mental, or emotional condition, do you have difficulty doing errands alone such as visiting a physician's office or shopping Yes 07/18/2024 12:17 PM Jaci Umana RN Yes [facility] Mental Status Date Assessment Result Facility 07-18-2024 Because of a physica l, mental, or emotional condition, do you have serious difficulty concentrating, remembering, or making decisions No 07/18/2024 12:17 PM Jaci Umana, RADHA No [facility] Clinical Notes 05-14-2022 to 03-15-2025 Andre Berry MD - 03/15/2025 11:15 AM Savana Triana MD - 01/02/2025 9:45 AM Cindy Blankenship MD - 12/24/2024 2:30 PM Cindy Blankenship MD - 12/05/2024 10:00 AM EDTDischarge Instructions Note Date & Type Note Facility 03-15-2025 History of Present illness Narrative Images from the original note were not included. Andre Patel MD [facility] Hematology/Oncology - [facility] [address] [facility] [address] [facility] [address] Dept: [phone] Dept PROBLEM LIST: 1. Recurrent DVT: Initially [...] completing clinical documentation as well as with [id number] patient care, performing a medically appropriate examination, counseling / educating the patient/family/caregiver, and ordering medications, tests, or procedures. HPI: Mel Pop is a 84 y.o. female who presents here today with VTE Pt w/ history of severe atherosclerosis, COPD, former smoker, diverticulosis, afib, hypertension, and GERD who presented to [facility] for right lower extremity pain. Reports after [...] trifurcation vessels. Vascular surgery recommended transfer to [facility]. PVR and BLE US results pending however [...] transition to Coumadin. Here today w/ Lavelle (psych social worker from [facility]) as well as Fidel STAPLETON Pt reports arterial stent placed in E. She was put on plavix / asiprin [...] Resource Strain: Low Risk (06/20/2024) Received from [facility] Overall Financial Resource Strain (CARDIA) Difficulty [...] min Stress: Patient Unable To Answer (08/03/2024) [facility] - Occupational Stress Questionnaire Feeling of Stress : Patient unable to answer Social Connections: Unknown (08/03/2024) Social Connection and Isolation Panel [NHANES] Frequency of Communication with Friends and Family: Patient unable to answer Frequency of Social Gatherings with Friends and Family: Patient unable to answer Attends Taoism Services: Patient unable to answer Active Member of Clubs or Organizations: Patient unable to answer Attends Club or Organization Meetings: Never Marital Status: Patient unable to answer Recent Concern: Social Connections - Moderately Isolated (06/20/2024) Received from [facility] Social Connection and Isolation Panel [NHANES] Frequency of Communication with Friends and Family: More than three times a week Frequency of Social Gatherings with Friends and Family: Once a week Attends Taoism Services: More than 4 times per year [...] 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 [1] Past Medical History: Diagnosis Date Arrhythmia PAF Asthma Chronic kidney disease COPD (chronic obstructive pulmonary disease) (HCC) DVT (deep venous thrombosis) (HCC) Essential hypertension 03/07/2020 GERD (gastroesophageal reflux disease) Hiatal hernia IBS (irritable bowel syndrome) Pure hypercholesterolemia 03/07/2020 PVD (peripheral vascular disease) ([facility]) Stroke (HCC) [2] Past Surgical History: Procedure Laterality Date ANKLE SURGERY ARM SURGERY (HISTORICAL) Right COLONOSCOPY ESOPHAGEAL DILATION EYE SURGERY Right 07/05/2024 [facility] EYE SURGERY Right 06/2024 x2, [facility] FINGER AMPUTATION Right 03/07/2020 right index [...] taking: Reported on 03/15/2025), Disp: , Rfl: Trelegy Ellipta 100-62.5-25 MCG/ACT [...] Percocet [Oxycodone-Acetaminophen] Itching documented in this encounter [facility] 01-02-2025 History of Present illness Narrative [...] choroidals (not yet appositional) - Evaluated at [facility] 07/12/24 with intense nausea and multiple episodes [...] to HTN (SBP 199/99 at presentation to [facility]) and anticoagulation that led to angle closure [...] relevant components. documented in this encounter [facility] 01-02-2025 Note HNO ID: [id number] Author: SAVANA LOPEZ MD Service: ? Author [...] choroidals (not yet appositional) - Evaluated at [facility] 07/12/24 with intense nausea and multiple episodes [...] to HTN (SBP 199/99 at presentation to [facility]) and anticoagulation that led to angle closure [...] History of Present illness Narrative 12/24/2024 Mel F Kiesha 1940 Chief Complaint Patient presents with Follow-up Discuss Arterial Duplex Right 12/13/24; 2nd follow up RLE angio, SFA/pop/tib angioplasty/stenting 11/22/24 ([place] [facility] [phone]) Patient returns for post operative evaluation s/p [...] [facility] EYE SURGERY Right 06/2024 x2, [facility] 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 HYSTERECTOMY ORTHOPEDIC SURGERY THROMBECTOMY Right 04/06/2024 RLE mechanical thrombectomy (Krzysztof) VASCULAR SURGERY Right 11/22/2024 AORTOILIAC ANGIOGRAPHY, RIGHT LOWER EXTREMITY ANGIOGRAPHY WITH RUNOFF, SUPERFICIAL FEMORAL ARTERY, POPLITEAL,TIBIAL ANGIOPLASTY and STENTING (Krzysztof) VASCULAR SURGERY Left 11/22/2024 Left femoral angiography (Krzysztof) documented in this encounter [facility] 12-05-2024 History of Present illness Narrative 12/05/2024 Mel Kareem Kiesha 1940 Chief Complaint Patient presents with Follow-up [...] I reviewed the images with the patient's jaasoybr-qj-cjq who was present for today's visit as the patient is blind. Follow up after arterial duplex to discuss the results. 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 Groin site remains intact and LE distal pulses unchanged via assessment with doppler. Transportation called for picker box operator [facility] 11-22-2024 Miscellaneous Notes POA called to bedside and discharge instructions reviewed. Groin site remains intact and LE distal pulses unchanged via assessment with doppler. Transportation called for picker box operator POA given updated via phone call. [...] the patient as well as the patient's gcmstvjz-xo-ftv Fidel. They have elected to proceed. PROCEDURE [...] technique was used to place a 5 [place] sheath. The Bentson wire was positioned in [...] catheter and the catheter removed. The 5 [place] sheath was exchanged for a long 6 [place] Ansell sheath which was positioned with its [...] sheath was exchanged for a short 6 [place] sheath. A Vascade closure device was deployed [...] MD Vascular Surgery documented in this encounter [facility] 11-22-2024 Procedure note POA given updated via phone call. Made aware of patient's orders to lay flat until 1325. Daughter in law stated that she will call care facility later to make arrangements for transportation back. [facility] 11-22-2024 Hospital Discharge instructions Mehreen Khanna [...] the office l documented in this encounter [facility] 11-22-2024 Nurse Note Patient arrived on unit. Name and date verified. Attached to monitors. Vital signs stable. [facility] 11-22-2024 Note [facility] 11-22-2024 Procedure note OPERATIVE REPORT [...] the patient as well as the patient's tpxijnuy-mz-rny Fidel. They have elected to proceed. PROCEDURE [...] technique was used to place a 5 [place]er sheath. The Bentson wire was positioned in [...] catheter and the catheter removed. The 5 [place] sheath was exchanged for a long 6 [place] Ansell sheath which was positioned with its [...] sheath was exchanged for a short 6 [place] sheath. A Vascade closure device was deployed [...] preoperative examination. Kristyn Blankenship MD Vascular Surgery [facility] 11-22-2024 Attending History and physical note [...] with a walker with pT at her residential facility. She is on Eliquis and statin. She is a former smoker. PastMedical History: Past Medical History: Diagnosis Date Arrhythmia PAF Asthma Chronic kidney disease COPD (chronic obstructive pulmonary disease) ([facility]) DVT (deep venous thrombosis) ([facility]) Essential hypertension 03/07/2020 GERD (gastroesophageal reflux disease) Hiatal hernia IBS (irritable bowel syndrome) Pure hypercholesterolemia 03/07/2020 PVD (peripheral vascular disease) ([facility]) Stroke ([facility]) Past Surgical History: Past Surgical History: Procedure Laterality Date ANKLE SURGERY ARM SURGERY (HISTORICAL) Right COLONOSCOPY ESOPHAGEAL DILATION EYE SURGERY Right 07/05/2024 [facility] EYE SURGERY Right 06/2024 x2, [facility] FINGER AMPUTATION Right 03/07/2020 right index [...] min Stress: Patient Unable To Answer (08/03/2024) [facility] - Occupational Stress Questionnaire Feeling of Stress : Patient unable to answer Social Connections: Unknown (08/03/2024) Social Connection and Isolation Panel [NHANES] Frequency of Communication with Friends and Family: Patient unable to answer Frequency of Social Gatherings with Friends and Family: Patient unable to answer Attends Taoism Services: Patient unable to answer Active Member of Clubs or Organizations: Patient unable to answer Attends Club or Organization Meetings: Never Marital Status: Patient unable to answer Recent Concern: Social Connections - Moderately Isolated (06/20/2024) Received from [facility] Social Connection and Isolation Panel [NHANES] Frequency of Communication with Friends and Family: More than three times a week Frequency of Social Gatherings with Friends and Family: Once a week Attends Taoism Services: More than 4 times per year [...] like me to discuss this with her mjrrlwsn-mi-svb Fidel Castillo. She states she is her POA. I have contacted Fidel via telephone and explained the above and the recommendations for angiography. She will speak with the patient and call the office to let us know how they would like to proceed. Kristyn Blankenship MD Vascular Surgery [facility] Phone: 11-22-2024 Note [facility] 11-22-2024 History and physical note H&P [...] with a walker with pT at her residential facility. She is on Eliquis and statin. She is a former smoker. PastMedical History: Past Medical History: Diagnosis Date Arrhythmia PAF Asthma Chronic kidney disease COPD (chronic obstructive pulmonary disease) ([facility]) DVT (deep venous thrombosis) ([facility]) Essential hypertension 03/07/2020 GERD (gastroesophageal reflux disease) Hiatal hernia IBS (irritable bowel syndrome) Pure hypercholesterolemia 03/07/2020 PVD (peripheral vascular disease) ([facility]) Stroke ([facility]) Past Surgical History: Past Surgical History: Procedure Laterality Date ANKLE SURGERY ARM SURGERY (HISTORICAL) Right COLONOSCOPY ESOPHAGEAL DILATION EYE SURGERY Right 07/05/2024 [facility] EYE SURGERY Right 06/2024 , [facility] FINGER AMPUTATION Right 03/07/2020 right index [...] mouth 2 times daily. 08/09/24 Kael Anderson, DO ascorbic acid (Vitamin C) 500 MG [...] min Stress: Patient Unable To Answer (08/03/2024) [facility] [employer] - Occupational Stress Questionnaire Feeling of Stress : Patient unable to answer Social Connections: Unknown (08/03/2024) Social Connection and Isolation Panel [NHANES] Frequency of Communication with Friends and Family: Patient unable to answer Frequency of Social Gatherings with Friends and Family: Patient unable to answer Attends Taoism Services: Patient unable to answer Active Member of Clubs or Organizations: Patient unable to answer Attends Club or Organization Meetings: Never Marital Status: Patient unable to answer Recent Concern: Social Connections - Moderately Isolated (06/20/2024) Received from [facility] Social Connection and Isolation Panel [NHANES] Frequency of Communication with Friends and Family: More than three times a week Frequency of Social Gatherings with Friends and Family: Once a week Attends Taoism Services: More than 4 times per year [...] None Visit Diagnoses PAD (peripheral artery disease) ([facility]) - Primary Skin ulcer of toe of right foot, limited to breakdown of skin ([facility]) Given patient's known peripheral vascular disease and now with development of toe ulceration, I recommend angiography of the right lower extremity with possible intervention. I discussed the procedure with the patient and how it is performed. We discussed the risks of bleeding, infection, damage to surrounding structures, and access site complications. She would like me to discuss this with her llwyzcpi-qw-jei Fidel Castillo. She states she is her POA. I have contacted Fidel via telephone and explained the above and the recommendations for angiography. She will speak with the patient and call the office to let us know how they would like to proceed. Kristyn Blankenship MD Vascular Surgery documented in this encounter [facility] 11-09-2024 Note Tried to reach patie nt to discuss paper feeder her procedure. Mailbox full & unable to leave voicemail. [employer] Health 11-05-2024 History of Present illness Narrative Vascular [...] with a walker with pT at her residential facility. She is on Eliquis and statin. She is a former smoker. PastMedical History: Past Medical History: Diagnosis Date Arrhythmia PAF Asthma Chronic kidney disease COPD (chronic obstructive pulmonary disease) ([facility]) DVT (deep venous thrombosis) (HCC) Essential hypertension 03/07/2020 GERD (gastroesophageal reflux disease) Hiatal hernia IBS (irritable bowel syndrome) Pure hypercholesterolemia 03/07/2020 PVD (peripheral vascular disease) ([facility]) Stroke (HCC) Past Surgical History: Past Surgical History: Procedure Laterality Date ANKLE SURGERY ARM SURGERY (HISTORICAL) Right COLONOSCOPY ESOPHAGEAL DILATION EYE SURGERY Right 07/05/2024 ACH EYE SURGERY Right 06/2024 x2, [facility] FINGER AMPUTATION Right 03/07/2020 right index [...] Resource Strain: Low Risk (06/20/2024) Received from [facility] Overall Financial Resource Strain (CARDIA) Difficulty [...] min Stress: Patient Unable To Answer (08/03/2024) [facility] - Occupational Stress Questionnaire Feeling of Stress : Patient unable to answer Social Connections: Unknown (08/03/2024) Social Connection and Isolation Panel [NHANES] Frequency of Communication with Friends and Family: Patient unable to answer Frequency of Social Gatherings with Friends and Family: Patient unable to answer Attends Taoism Services: Patient unable to answer Active Member of Clubs or Organizations: Patient unable to answer Attends Club or Organization Meetings: Never Marital Status: Patient unable to answer Recent Concern: Social Connections - Moderately Isolated (06/20/2024) Received from [facility] Social Connection and Isolation Panel [NHANES] Frequency of Communication with Friends and Family: More than three times a week Frequency of Social Gatherings with Friends and Family: Once a week Attends Taoism Services: More than 4 times per year [...] like me to discuss this with her [id number]-npi Fidel Castillo. She states she is her POA. I have contacted Fidel via telephone and explained the above and the recommendations for angiography. She will speak with the patient and call the office to let us know how they would like to proceed. Kristyn Blankenship MD Vascular Surgery documented in this encounter [facility] 11-05-2024 Note [facility] 10-01-2024 Note Date of Procedure 10/01/2024. Instructional Design Technologist Information CATALINA Donovan CDOS 10/01/2024 10:58 AM [...] right eye documented in this encounter [facility] 10-01-2024 Note HNO ID: [id number] Author: SAVANA LOPEZ MD Service: ? Author [...] choroidals (not yet appositional) - Evaluated at [facility] 07/12/24 with intense nausea and multiple episodes [...] to HTN (SBP 199/99 at presentation to [facility]) and anticoagulation that led to angle closure [...] choroidals (not yet appositional) - Evaluated at [facility] 07/12/24 with intense nausea and multiple episodes [...] to HTN (SBP 199/99 at presentation to [facility]) and anticoagulation that led to angle closure [...] relevant components. 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 documented in this encounter [facility] 09-05-2024 Note HNO ID: [id number] Author: SAVANA LOPEZ MD Service: ? 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 - No B-scan [place] Plan = - Decrease Pred BID OD [...] choroidals (not yet appositional) - Evaluated at [facility] 07/12/24 with intense nausea and multiple episodes [...] to HTN (SBP 199/99 at presentation to [facility]) and anticoagulation that led to angle closure [...] Hospital 08-22-2024 History of Present illness Narrative [facility] [place] [facility] Surgery Follow-up Office Visit CHIEF COMPLAINT: Chief Complaint Patient presents with Follow-up 3 month follow up, PAD check ([facility] [place]) HISTORY OF PRESENT ILLNESS: Mel Pop is [...] ambulating with walker with PT at [facility] without difficulty. She denies any rest pain [...] ACH EYE SURGERY Right 06/2024 x2, [facility] FINGER AMPUTATION Right 03/07/2020 right index [...] Resource Strain: Low Risk (06/20/2024) Received from [facility] Overall Financial Resource Strain (CARDIA) Difficulty [...] min Stress: Patient Unable To Answer (08/03/2024) [facility] - Occupational Stress Questionnaire Feeling of Stress : Patient unable to answer Social Connections: Unknown (08/03/2024) Social Connection and Isolation Panel [NHANES] Frequency of Communication with Friends and Family: Patient unable to answer Frequency of Social Gatherings with Friends and Family: Patient unable to answer Attends Taoism Services: Patient unable to answer Active Member of Clubs or Organizations: Patient unable to answer Attends Club or Organization Meetings: Never Marital Status: Patient unable to answer Recent Concern: Social Connections - Moderately Isolated (06/20/2024) Received from [facility] Social Connection and Isolation Panel [NHANES] Frequency of Communication with Friends and Family: More than three times a week Frequency of Social Gatherings with Friends and Family: Once a week Attends Taoism Services: More than 4 times per year [...] (HCC) - Primary PAD (peripheral artery disease) ([facility]) 1. Stable follow up of lower extremity [...] Follow-Up: prn . documented in this encounter [facility] 08-16-2024 Note [facility] 08-16-2024 Nurse Note Patient picked up for transfer to [facility] by stretcher. Report already called to GENET Garcia. [facility] 08-16-2024 Nurse Note Patient picked up for transfer to [facility] by stretcher. Report already called to GENET Garcia. Telephone report called to GENET Garcia at [facility]. Bedside swallow completed. Pt passed and tolerated well tolerated well. documented in this encounter [facility] 08-16-2024 Nurse Note Telephone report called to GENET Garcia at [facility]. [facility] 08-16-2024 Note Formatting of this n ote might be different from the original. Arranged transport to [facility] via [employer] with pickup at 2pm. Notified snf of transport time via Careport message; reviewed time with RN, president of the [place] and TCC. Called pt's daughter to review discharge time., plan; she is agreeable. [facility] 08-16-2024 Note Formatting of this n ote might be different from the original. Arranged transport to [facility] via [employer] with pickup at 2pm. Notified snf of transport time via Careport message; reviewed time with RN, president of the [place] and TCC. Called pt's daughter to review discharge time., plan; she is agreeable. [facility] 08-16-2024 Miscellaneous Notes Arranged transport to [facility] via [employer] with pickup at 2pm. Notified snf of transport time via Careport message; reviewed time with RN, president of the [place] and TCC. Called pt's daughter to review discharge time., plan; she is agreeable. Patient Choice Patient Name: MEL POP Date of : 1940 All Providers Sent Referral Name: [facility] Phone: [phone] Address: [address] [place] [address] Name: [facility] Phone: [phone] Address: [address] [place] [address] Name: [facility] Phone: [phone] Address: [address] [place] [address] MAR & Discharge med list transmitted to [facility] via Careport per TCC request. Pt has auth to go to [facility]. Dtr Fidel,[phone] was called, message left @DC. Care Team was messaged...place DC orders/MAR. Dar YOUNG RN complete HECTOR. COMPRESSION MOLDING MACHINE SETTER will arrange transport for this am. [facility] tasked to sebd DC orders/MAR. Problem: Knowledge [...] met Outcome: Progressing Authorization is pending with [facility]. Ref# [id number] to be DC'd to [facility]. Dtr Fidel Updated. CM to follow. [...] Progressing Pt has Been accepted to [facility]. Need PT/OT to see so auth to be started. Therapy to see today was sent. Called and spoke with Dttiffanie Stokes, w vasyl. SNF tasked w update. CM to follow. [...] Outcome: Progressing Referral placed to SNF- [facility] via [facility]port per [facility] request. Await review and response regarding ability to accept. TCC notified. Electronically signed by Christine Morataya [facility], 08-13-2024 at 3:00 PM Called dgt to talk about dc planning. Dgt continues to tour SNFs this evening, since she was sick this weekend. Provided me with two more SNF choices. [facility]. Tasked [facility] to create these referrals. CM to follow. [...] Dgt touring facilities over the weekend. [place]. [facility] pending acceptance, updates sent via [facility]. Problem: Knowledge Deficit Goal: Patient/family/caregiver demonstrates [...] [facility] TCC request. Await review and response regarding ability to accept. TCC notified. Electronically signed by Christine Morataya [facility], 08-10-2024 at 9:23AM Pt was to be DC to [facility]. Found out pt and dtr didn't want to return to [facility]. SNF was made aware. On adm spoke with Dtr Fidel, ok to return. Called Dtr this am, after speaking with pt and things that happened and didn't happen. Fidel requesting a referral to be made to [facility]. [facility] tasked to send. A SNF list was emailed to Fidel. [email or web address]. She will tour facilities over weekend. CM [...] and med list sent via Careport to [facility] per TCC request. Auth received. Patient with active dc orders. Transportation arranged through [employer] with estimated picker box operator time of 1929. VM left with daughter Fidel along with 3N phone number to call with questions. Bedside RN aware. Facility updated. [facility] rubber compounder supervisor sent orders to [facility]. residential mortgage manager was asked to assist with setting up transport back to [facility] this evening. secretary to the vice president had already done so, but this physical therapy manager called daughter to inform her of discharge and transport set up. Daughter did not wish patient to return to the SNF. Jewel Bearing Maker told her that patient is medically stable for dc and that she should continue the discussion with the psych social worker and health services administrator at The snf, and also get options from [employer]. Coordinator was to message the snf about return this evening via FaceTags. Updated PT/OT notes placed to SNF [facility] via Careport per TCC request. Await review and response regarding ability to accept. TCC notified. Electronically signed by [facility] Aracelis Gardiner Patient is medically ready for dc. PT/OT both continuing to recommend SNF. [facility] physical therapy manager asked to start auth. Plan to dc back to [facility] pending auth I was off Yesterday, PT note was in from Tuesday. Therapy to see today was sent out to OT Tuesday to see yesterday. Pt was not seen. I did sent a therapy to see today to PT/OT so an auth can be started. Pt will Be Dc'd to [facility]. CM to follow. Problem: Knowledge Deficit [...] aspiration 2/2 vomiting. Discharge Plan: Return to [facility]. Therapy eval needed for precert. TCC [...] Plan is for pt to return to [facility]. Auth and HECTOR needed prior to DC. CM to follow. Per attending pt ready for DC. Pt will return to [facility]. Pt needs PT/OT to start auth [...] RN Outcome: Progressing Return referral placed to [facility] via Careport per TCC request. Await review and response regarding ability to accept. TCC notified. Pt to ED w N/V/Diarrhea, was Dx w Aspiration pneumonitis. Started on IV ATB's. Called pt's Dtr, Fidel, . Pt is from [facility]. Plan on returning. [facility] tasked to send a return referral. Problem: [...] Improved Outcome: Progressing documented in this encounter [facility] 08-16-2024 Note Formatting of this n ote might be different from the original. Patient Choice Patient Name: MEL POP Date of : 1940 All Providers Sent Referral Name: Mckenzie Ad[facility] Phone: [phone] Address: [address] [place] [id number] Name: [facility] Phone: [phone] Address: [address] [place], [place] [id number] Name: [facility] Phone: [phone] Address: [address] [place] [address] [facility] 08-16-2024 Note Formatting of this n ote might be different from the original. Patient Choice Patient Name: MEL POP Date of : 1940 All Providers Sent Referral Name: [facility] Phone: [phone] Address: [address] [place] [address] Name: [facility] Phone: [phone] Address: [address] [place] [address] Name: [facility] Phone: [phone] Address: [address] [place] [address] [facility] 08-16-2024 Note Formatting of this n ote might be different from the original. MAR & Discharge med list transmitted to [facility] via Careport per TCC request. [facility] 08-16-2024 Note Formatting of this n ote might be different from the original. MAR & Discharge med list transmitted to [facility] via Careport per TCC request. [facility] 08-16-2024 Note Formatting of this n ote might be different from the original. Pt has auth to go to [facility]. Dtr Fidel,[phone] was called, message left @DC. Care Team was messaged...place DC orders/MAR. Dar YOUNG RN complete HECTOR. COMPRESSION MOLDING MACHINE SETTER will arrange transport for this am. [facility] tasked to sebd DC orders/MAR. [facility] 08-16-2024 Note Formatting of this n ote might be different from the original. Pt has auth to go to [facility] [place] [facility] [place]. Dttiffanie [phone] was called, message left @DC. Care Team was messaged...place DC orders/MAR. Dar YOUNG, RN complete HECTOR. COMPRESSION MOLDING MACHINE SETTER will arrange transport for this am. INSEAM LEVELER tasked to sebd DC orders/MAR. [employer] [facility] 08-16-2024 History of Present illness Narrative Hospitalist Progress Note 08/16/2024 Subjective: Admit Date: 08/03/2024 PCP: Jared Evans MD Room#: [id number] A BRIEF HOSPITAL COURSE: Mel is a 83 y.o. female with past medical history below who presents with chief complaint listed above.Patient is an 83 y/o female who presented to [place] [facility] early this AM from local [place] for [place] and diarrhea. Patient reported she [...] Pure hypercholesterolemia 03/07/2020 PVD (peripheral vascular disease) ([facility]) Stroke ([facility]) LABS: CBC: No results for input(s): "WBC", [...] Devika Escobar MD Division of Hospitalist Medicine [facility] Hospitalist Progress Note 08/15/2024 Subjective: Admit Date: 08/03/2024 PCP: Jared Evans MD Room#: [id number] A BRIEF HOSPITAL COURSE: Mel is a 83 y.o. female with past medical history below who presents with chief complaint listed above.Patient is an 83 y/o female who presented to [place] [facility] early this AM [place] for [place] and [place]. Patient reported she [...] Devika Escobar MD Division of Hospitalist Medicine [facility] Images from the original note were not included. PHYSICAL THERAPY [facility] Treatment Note Name/MRN: Mel Pop ([id number]) Date of : 1940 Age: 83 y.o. [facility] Discharge Recommendation: 24 hour supervision or assist, Long Term Facility Equipment Needed: (pt uses [facility]) Prior Level of Function Prior Level of [...] hour assist, home health PT, and home mortgage disclosure act specialist if discharging home due to complete [...] Goal: keep getting up, get back to [place]. Encounter Problems Encounter Problems (Active) Balance Patient [...] note were not included. OCCUPATIONAL THERAPY [facility] Treatment Note Name/MRN: Mel Pop ([id number]) Date of : 1940 Age: 83 y.o. [facility] A Discharge Recommendation: Long Term Facility Prior Level of Function Prior Level [...] 24/7 assist, home health OT and home mortgage disclosure act specialist. Pt. ( Who is totally BLIND), Would due better receiving therapy in her home due to familiar environment. If she can not get 24/7 assist at home then OT [place] Subjective Pt. Remains in her recliner eating [...] Date: 08/03/2024 PCP: Jared Evans MD Room#: [id number] A BRIEF HOSPITAL COURSE: Mel is a 83 y.o. female with past medical history below who presents with chief complaint listed above.Patient is an 83 y/o female who presented to [facility] early this AM [place] for [place] and diarrhea. Patient reported she [...] pulmonary disease) (HCC) DVT (deep venous thrombosis) ([facility]) Essential hypertension 03/07/2020 GERD (gastroesophageal reflux disease) Hiatal hernia IBS (irritable bowel syndrome) Pure hypercholesterolemia 03/07/2020 PVD (peripheral vascular disease) ([facility]) Stroke ([facility]) LABS: CBC: No results for input(s): "WBC", [...] Emergency Contact Information Primary Emergency Contact: Maxwell Catsilloweston/ Fidel Mobile Relation: Mother Secondary Emergency Contact: Damaris Villafana DO NOT CALL-TERMINALLY ILL Mobile Relation: Friend Devika Escobar MD Division of Hospitalist Medicine Acute care [facility] Hospitalist Progress Note 08/13/2024 Subjective: Admit Date: 08/03/2024 PCP: Jared Evans MD Room#: [id number] A BRIEF HOSPITAL COURSE: Mel is a 83 y.o. female with past medical history below who presents with chief complaint listed above.Patient is an 83 y/o female who presented to [place] [facility] early this AM [place] for [place] and [place]. Patient reported she [...] kidney disease COPD (chronic obstructive pulmonary disease) ([facility]) DVT (deep venous thrombosis) ([facility]) Essential hypertension 03/07/2020 GERD (gastroesophageal reflux disease) Hiatal hernia IBS (irritable bowel syndrome) Pure hypercholesterolemia 03/07/2020 PVD (peripheral vascular disease) ([facility]) Stroke ([facility]) LABS: CBC: No results for input(s): "WBC", [...] Kael Anderson DO Division of Hospitalist Medicine [facility] Nutrition Assessment Type and Reason [...] No significant fluid accumulation (per flow sheets) Front Office Specialist Strength: Not Performed Nutrition Assessment: 83 [...] On: Kcal/kg Weight Used for Energy Requirements: [place] Weight for Energy Calculation (kg): 54 kg Total Energy Requirements (kcals/day): 4883-1556 Weight Used for Protein Requirements: [place] Weight in Kg Used for Protein Requirements: [...] 160# 07/05) % Weight Change (Calculated): 12.2 [place] Body Weight (lbs) (Calculated): 119 lbs [place] Body Weight (Kg) (Calculated): 54 kg BMI [...] soon to determine Janki Fields RD Contact: [phone] Hospitalist Progress Note 08/12/2024 Subjective: Admit Date: 08/03/2024 PCP: Jared Evans MD Room#: [id number] A BRIEF HOSPITAL COURSE: Mel is a 83 y.o. female with past medical history below who presents with chief complaint listed above.Patient is an 83 y/o female who presented to [place] [facility] early this AM [place] and [place]. Patient reported she [...] Pure hypercholesterolemia 03/07/2020 PVD (peripheral vascular disease) ([facility]) Stroke ([facility]) LABS: CBC: No results for input(s): "WBC", [...] VasughassanDamaris NOT CALL-TERMINALLY ILL Mobile Relation: Friend Kael Anderson DO Division of Hospitalist Medicine [facility] Hospitalist Progress Note 08/11/2024 Subjective: Admit Date: 08/03/2024 PCP: Jared Evans MD Room#: [id number] A BRIEF HOSPITAL COURSE: Mel is a 83 y.o. female with past medical history below who presents with chief complaint listed above.Patient is an 83 y/o female who presented to [place] [facility] early this AM [place] and diarrhea. Patient reported she [...] kidney disease COPD (chronic obstructive pulmonary disease) ([facility]) DVT (deep venous thrombosis) ([facility]) Essential hypertension 03/07/2020 GERD (gastroesophageal reflux disease) Hiatal hernia IBS (irritable bowel syndrome) Pure hypercholesterolemia 03/07/2020 PVD (peripheral vascular disease) ([facility]) Stroke ([facility]) LABS: CBC: No results for input(s): "WBC", [...] Kael Anderson DO Division of Hospitalist Medicine [email or web address] Hospitalist Progress Note 08/10/2024 Subjective: Admit Date: 08/03/2024 PCP: Jared Evans MD Room#: [id number] A BRIEF HOSPITAL COURSE: Mel is a 83 y.o. female with past medical history below who presents with chief complaint listed above.Patient is an 83 y/o female who presented to [facility] early this AM [place] for [place] and diarrhea. Patient reported she [...] Pure hypercholesterolemia 03/07/2020 PVD (peripheral vascular disease) ([facility]) Stroke ([facility]) LABS: CBC: No results for input(s): "WBC", [...] Medicine [facility] [employer] Hospitalist Progress Note 08/09/2024 Subjective: Admit Date: 08/03/2024 PCP: Jared Evans MD Room#: [id number] A BRIEF HOSPITAL COURSE: Mel is a 83 y.o. female with past medical history below who presents with chief complaint listed above.Patient is an 83 y/o female who presented to [place] [facility] early this [place]. Patient reported she [...] pulmonary disease) (HCC) DVT (deep venous thrombosis) ([facility]) Essential hypertension 03/07/2020 GERD (gastroesophageal reflux disease) Hiatal hernia IBS (irritable bowel syndrome) Pure hypercholesterolemia 03/07/2020 PVD (peripheral vascular disease) ([facility]) Stroke ([facility]) LABS: CBC: No results for input(s): "WBC", [...] Kael Anderson DO Division of Hospitalist Medicine [facility] Images from the original note were not included. OCCUPATIONAL THERAPY [facility] Initial Evaluation Name/MRN: Mel Pop ([id number]) Evaluation Date: 08/08/2024 Date of : 1940 Admission Date: 08/03/2024 2:22 AM Age: 83 y.o. 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[facility]) 07/27/2023 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 ([facility]) 07/27/2023 Bilateral pneumonia 06/16/2022 COVID-19 06/16/2022 Hypothyroidism 06/16/2022 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[facility]) 06/16/2022 Cellulitis 05/18/2022 Nicotine use disorder 05/18/2022 Acute venous embolism and thrombosis of deep vessels of proximal end of right lower extremity ([facility]) 04/19/2024 Atrial fibrillation, unspecified type ([facility]) 04/19/2024 Irritable bowel syndrome with diarrhea 03/07/2020 Microscopic hematuria 03/07/2020 Left retinal detachment 03/07/2020 Hyperglycemia 03/07/2020 Osteopenia of left femoral neck 03/07/2020 [facility] current use of anticoagulant therapy 03/07/2020 Seasonal allergies 03/07/2020 Chronic renal insufficiency, stage III (moderate) ([facility]) 03/07/2020 Major depression, single episode, in complete remission ([facility]) 03/07/2020 Gastroesophageal reflux disease without esophagitis 03/07/2020 Essential hypertension 03/07/2020 Pure hypercholesterolemia 03/07/2020 Overweight 03/07/2020 Psoriasis 03/07/2020 History of cerebrovascular accident 03/07/2020 Atrial fibrillation ([facility]) 03/07/2020 Chronic obstructive pulmonary disease ([facility]) 03/07/2020 Finger osteomyelitis, right ([facility]) 03/06/2020 Medical Precautions: Enhanced Contact Proper PPE [...] of Care supervision is transferred to a [facility] Therapy Services Occupational Therapist. Goals and/or treatment plan was established in collaboration with patient/family/other representatives. Shannon Copen MS, OTR/L Images from the original note were not included. PHYSICAL THERAPY [facility] Treatment Note Name/MRN: Mel Pop ([id number]) Date of : 1940 Age: 83 y.o. [facility] Discharge Recommendation: Long Term Facility Equipment Needed: (pt uses [facility]) Prior Level of Function Prior Level of [...] Goal: keep getting up, get back to [facility]. Encounter Problems Encounter Problems (Active) Balance Patient [...] Date: 08/03/2024 PCP: Jared Evans MD Room#: [id number] A BRIEF HOSPITAL COURSE: Mel is a 83 y.o. female with past medical history below who presents with chief complaint listed above.Patient is an 83 y/o female who presented to [facility] early this AM from local [place] for [place] and [place]. Patient reported she [...] kidney disease COPD (chronic obstructive pulmonary disease) ([facility]) DVT (deep venous thrombosis) ([facility]) Essential hypertension 03/07/2020 GERD (gastroesophageal reflux disease) Hiatal hernia IBS (irritable bowel syndrome) Pure hypercholesterolemia 03/07/2020 PVD (peripheral vascular disease) ([facility]) Stroke ([facility]) LABS: CBC: Recent Labs 08/05/24 2343 WBC [...] Kael Anderson DO Division of Hospitalist Medicine [email or web address] Hospitalist Progress Note 08/07/2024 Subjective: Admit Date: 08/03/2024 PCP: Jared Evans MD Room#: N4-586/[id number] A BRIEF HOSPITAL COURSE: Mel is a 83 y.o. female with past medical history below who presents with chief complaint listed above.Patient is an 83 y/o female who presented to [facility] early this AM from local [place] for vomiting and diarrhea. Patient reported she [...] Pure hypercholesterolemia 03/07/2020 PVD (peripheral vascular disease) ([facility]) Stroke ([facility]) LABS: CBC: Recent Labs 08/05/24 0358 08/05/24 [...] 100 mL/hr, Last Rate: 100 mL/hr (08/06/24 1744) Assessment Data: Acute, acute on chronic, unstable/uncontrolled [...] Kael Anderson DO Division of Hospitalist Medicine [facility] Hospitalist Progress Note 08/06/2024 Subjective: Admit Date: 08/03/2024 PCP: Jarde Evans MD Room#: [id number]/[id number] A BRIEF HOSPITAL COURSE: Mel is a 83 y.o. female with past medical history below who presents with chief complaint listed above.Patient is an 83 y/o female who presented to [facility] early this AM from local [place] for [place] and diarrhea. Patient reported she [...] pulmonary disease) (HCC) DVT (deep venous thrombosis) ([facility]) Essential hypertension 03/07/2020 GERD (gastroesophageal reflux disease) Hiatal hernia IBS (irritable bowel syndrome) Pure hypercholesterolemia 03/07/2020 PVD (peripheral vascular disease) ([facility]) Stroke ([facility]) LABS: CBC: Recent Labs 08/04/24 0447 08/05/24 [...] Kayden Tatum MD Division of Hospitalist Medicine [facility] Images from the original note were not included. PHYSICAL THERAPY [facility] Initial Evaluation Name/MRN: Mel Pop ([id number]) Evaluation Date: 08/06/2024 Date of : 1940 Admission Date: 08/03/2024 2:22 AM Age: 83 y.o. [facility] Discharge Recommendation: Long Term Facility (pt from SNF at baseline) Equipment Needed: (pt uses [facility]) Assessment IMPRESSION: Pt's Vincent scoring has varied [...] to SNF-level care (pt was receiving PT [facility]) Admitting Diagnosis: aspiration pneumonitis, + Norovirus. S/p [...] pulmonary disease) (HCC) DVT (deep venous thrombosis) ([facility]) Essential hypertension 03/07/2020 GERD (gastroesophageal reflux disease) Hiatal hernia IBS (irritable bowel syndrome) Pure hypercholesterolemia 03/07/2020 PVD (peripheral vascular disease) ([facility]) Stroke ([facility]) Past Surgical History: Past Surgical History: Procedure Laterality Date ANKLE SURGERY ARM SURGERY (HISTORICAL) Right COLONOSCOPY ESOPHAGEAL DILATION EYE SURGERY 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 HYSTERECTOMY ORTHOPEDIC SURGERY THROMBECTOMY Right 04/06/2024 RLE mechanical thrombectomy (Krzysztof) Admission Diagnosis: Patient Active Problem List Diagnosis Date Noted Aspiration pneumonitis (CMS/HCC) ([facility]) 08/03/2024 Visual disturbance, subjective 07/06/2024 Retinal detachment, right 07/05/2024 Vision loss of right eye 07/05/2024 Acute venous embolism and thrombosis of deep vessels of proximal lower extremity ([facility]) 04/14/2024 Peripheral arterial disease ([facility]) 04/03/2024 Immunodeficiency due to conditions classified elsewhere ([facility]) 07/27/2023 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 ([facility]) 07/27/2023 Bilateral pneumonia 06/16/2022 COVID-19 06/16/2022 Hypothyroidism 06/16/2022 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[facility]) 06/16/2022 Cellulitis 05/18/2022 Nicotine use disorder 05/18/2022 Acute venous embolism and thrombosis of deep vessels of proximal end of right lower extremity ([facility]) 04/19/2024 Atrial fibrillation, unspecified type ([facility]) 04/19/2024 Irritable bowel syndrome with diarrhea 03/07/2020 Microscopic hematuria 03/07/2020 Left retinal detachment 03/07/2020 Hyperglycemia 03/07/2020 Osteopenia of left femoral neck 03/07/2020 [facility] current use of anticoagulant therapy 03/07/2020 Seasonal allergies 03/07/2020 Chronic renal insufficiency, stage III (moderate) ([facility]) 03/07/2020 Major depression, single episode, in complete remission ([facility]) 03/07/2020 Gastroesophageal reflux disease without esophagitis 03/07/2020 Essential hypertension 03/07/2020 Pure hypercholesterolemia 03/07/2020 Overweight 03/07/2020 Psoriasis 03/07/2020 History of cerebrovascular accident 03/07/2020 Atrial fibrillation ([facility]) 03/07/2020 Chronic obstructive pulmonary disease ([facility]) 03/07/2020 Finger osteomyelitis, right ([facility]) 03/06/2020 Medical Precautions: Enhanced Contact Proper PPE [...] OD Hearing: normal Social/Functional History Resident at [facility] at baseline. Goes to therapy and ambulates [...] Goal: keep getting up, get back to [facility] [place]. Encounter Problems Encounter Problems (Active) Balance Patient [...] of Care supervision is transferred to a [facility] Therapy Services Physical Therapist. Goals and/or treatment plan was established in collaboration with patient/family/other representatives. Hospitalist Progress Note 08/05/2024 Subjective: Admit Date: 08/03/2024 PCP: Jared Evans MD Room#: [id number]/[id number] A BRIEF HOSPITAL COURSE: Mel is a 83 y.o. female with past medical history below who presents with chief complaint listed above.Patient is an 83 y/o female who presented to [facility] early this AM [place] local [place] for [place]. Patient reported she [...] pulmonary disease) (HCC) DVT (deep venous thrombosis) ([facility]) Essential hypertension 03/07/2020 GERD (gastroesophageal reflux disease) Hiatal hernia IBS (irritable bowel syndrome) Pure hypercholesterolemia 03/07/2020 PVD (peripheral vascular disease) ([facility]) Stroke ([facility]) LABS: CBC: Recent Labs 08/03/24 0251 08/04/24 [...] Kayden Tatum MD Division of Hospitalist Medicine [facility] Images from the original note were not included. PHYSICAL THERAPY [facility] Name/MRN: Mel Pop ([id number]) Date: 08/05/2024 PT orders received per Vincent activity/mobility score. Patient currently with Vincent activity/mobility score greater than 2. Per therapy services guidelines, will discharge PT orders. Please place regular PT eval/treat orders if deemed appropriate. Padmaja Wilson PT Hospitalist Progress Note 08/04/2024 Subjective: Admit Date: 08/03/2024 PCP: Jared Evans MD Room#: [id number]/[id number] A BRIEF HOSPITAL COURSE: Mel is a 83 y.o. female with past medical history below who presents with chief complaint listed above.Patient is an 83 y/o female who presented to [facility] early this AM [place]. Patient reported she [...] kidney disease COPD (chronic obstructive pulmonary disease) ([facility]) DVT (deep venous thrombosis) ([facility]) Essential hypertension 03/07/2020 GERD (gastroesophageal reflux disease) Hiatal hernia IBS (irritable bowel syndrome) Pure hypercholesterolemia 03/07/2020 PVD (peripheral vascular disease) ([facility]) Stroke ([facility]) LABS: CBC: Recent Labs 08/03/24 02508/04/24446 WBC 9.1 5.6 RBC 4.65 3.88 HGB [...] Kayden Tatum MD Division of Hospitalist Medicine [facility] documented in this encounter [facility] 08-15-2024 Plan of care note Problem: [...] My discharge needs are met Outcome: Progressing [facility] 08-15-2024 Note Formatting of this n ote might be different from the original. Authorization is pending with [employer]. Ref# [id number] to be DC'd to [facility]. Dtr Fidel Updated. CM to follow. [facility] 08-15-2024 Note Formatting of this n ote might be different from the original. Authorization is pending with [employer]. Ref# [id number] to be DC'd to [facility]. Dtr Fidel Updated. CM to follow. [facility] 08-15-2024 Note Patient progressing toward all goals. [facility] 08-15-2024 Plan of care note Patient progressing toward all goals. [facility] 08-14-2024 Plan of care note [...] My discharge needs are met Outcome: Progressing [facility] 08-14-2024 Hospital Discharge instructions Devika Escobar [...] detachment Hyperglycemia Osteopenia of left femoral neck long term care pharmacist current use of anticoagulant therapy Seasonal allergies [...] assistance Toileting Total assistance Feeding Minimal assistance Warehouse Checker Minimal assistance Med Delivery yes Wound Care [...] Date: 08/03/2024 Discharging to Facility/ Agency Name: [facility] Address: [address] [place] [address] Fax: Dialysis Facility (if applicable) Name: Address: Dialysis Schedule: Phone: Fax: Farm Equipment Engine Mechanic/Obstetrics Tech signature: ICIAN SECTION Name: Mel Pop Prognosis: good Condition at Discharge: stable Rehab Potential (if transferring to Rehab): good Recommended Labs or Other Treatments After Discharge: none The individual is being admitted to a nursing facility directly from an [facility] or a unit of a [facility] that is not operated by or licensed by [facility] under section 5119.14 or 5160-3-15.1 5 The individual requires the level of services provided by a nursing facility for the condition for which he or she was treated in the hospital and, Physician Certification: I certify the above information and transfer of Mel Pop is necessary for the continuing treatment of the diagnosis listed and that she requires residential facility for less than 30 days. Update Admission H&P: No change in H&P PHYSICIAN SIGNATURE: documented in this encounter [facility] 08-14-2024 Note Formatting of this n ote might be different from the original. Pt has Been accepted to [facility]. Need PT/OT to see so auth to be started. Therapy to see today was sent. Called and spoke with braxton Cardozo. SNF tasked w update. CM to follow. [facility] 08-14-2024 Note Formatting of this n ote might be different from the original. Pt has Been accepted to [facility]. Need PT/OT to see so auth to be started. Therapy to see today was sent. Called and spoke with braxton Cardozo. SNF tasked w update. CM to follow. [facility] 08-13-2024 Plan of care note Problem: [...] My discharge needs are met Outcome: Progressing [facility] 08-13-2024 Note Formatting of this n ote might be different from the original. Referral placed to [facility] via Careport per TCC request. Await review and response regarding ability to accept. TCC notified. Electronically signed by Christine Morataya [facility], 08-13-2024 at 3:00 PM [facility] 08-13-2024 Note Formatting of this n ote might be different from the original. Referral placed to SNF- [facility] via Careport per TCC request. Await review and response regarding ability to accept. TCC notified. Electronically signed by Christine Morataya CMA, 08-13-2024 at 3:00 PM [facility] 08-13-2024 Note Referral placed to S - [facility] via Careport per TCC request. Await review and response regarding ability to accept. TCC notified. Electronically signed by Christine Morataya [facility], 08-13-2024 at 3:00 PM [facility] 08-13-2024 Note Formatting of this n ote might be different from the original. Called dgt to talk about dc planning. Dgt continues to tour SNFs this evening, since she was sick this weekend. Provided me with two more SNF choices. [facility]. Tasked [facility] to create these referrals. CM to follow. [facility] 08-13-2024 Note Formatting of this n ote might be different from the original. Called dgt to talk about dc planning. Dgt continues to tour SNFs this evening, since she was sick this weekend. Provided me with two more SNF choices. [facility]. Tasked INSEAM LEVELER to create these referrals. CM to follow. [facility] 08-13-2024 Plan of care note [...] My discharge needs are met Outcome: Progressing [facility] 08-12-2024 Note Problem: Knowledge D eficit Goal: Patient/family/caregiver demonstrates understanding of disease process, treatment plan, medications, and discharge instructions Outcome: Progressing [facility] 08-12-2024 Plan of care note Problem: Knowledge Deficit Goal: Patient/family/caregiver demonstrates understanding of disease process, treatment plan, medications, and discharge instructions Outcome: Progressing [facility] 08-12-2024 Plan of care note Problem: [...] My discharge needs are met Outcome: Progressing [facility] 08-11-2024 Plan of care note Problem: Knowledge [...] My discharge needs are met Outcome: Progressing [facility] 08-11-2024 Note Formatting of this n ote might be different from the original. CM noted DC orders in place, Dgt touring facilities over the weekend. Moira. [facility] pending acceptance, updates sent via careport. [facility] 08-11-2024 Note Formatting of this n ote might be different from the original. JOSH noted DC orders in place, Dgt touring facilities over the weekend. Moira. [facility] pending acceptance, updates sent via careport. [facility] 08-11-2024 Plan of care note [...] Interventions Goal: Assess Nutritional Intake Outcome: Progressing [facility] 08-10-2024 Note Formatting of this n ote might be different from the original. Referral placed to [facility] via Careport per TCC request. Await review and response regarding ability to accept. TCC notified. Electronically signed by Christine Morataya [facility], 08-10-2024 at 9:23AM [facility] 08-10-2024 Note Formatting of this n ote might be different from the original. Referral placed to [facility] via Careport per TCC request. Await review and response regarding ability to accept. TCC notified. Electronically signed by Christine Morataya CMA, 08-10-2024 at 9:23AM [facility] 08-10-2024 Note Referral placed to [facility] via Careport per TCC request. Await review and response regarding ability to accept. TCC notified. Electronically signed by Christine Morataya CMA, 08-10-2024 at 9:23AM [facility] 08-10-2024 Note Formatting of this n ote might be different from the original. Pt was to be DC to [facility]. Found out pt and dtr didn't want to return to [facility]. SNF was made aware. On adm spoke with Dtr Fidel, ok to return. Called Dtr this am, after speaking with pt and things that happened and didn't happen. Fidel requesting a referral to be made to [facility]. INSEAM LEVELER tasked to send. A SNF list was emailed to [email or web address]. She will tour facilities over weekend. CM to follow. [facility] 08-10-2024 Note Formatting of this n ote might be different from the original. Pt was to be DC to [facility]. Found out pt and dtr didn't want to return to [facility]. SNF was made aware. On adm spoke with Dtr Fidel, ok to return. Called Dtr this am, after speaking with pt and things that happened and didn't happen. Fidel requesting a referral to be made to [facility]. INSEAM LEVELER tasked to send. A SNF list was emailed to Fidel. [email or web address]. She will tour facilities over weekend. CM to follow. [facility] 08-10-2024 Plan of care note Problem: Knowledge [...] Interventions Goal: Assess Nutritional Intake Outcome: Progressing [facility] 08-09-2024 Note Formatting of this n ote might be different from the original. Discharge summary and med list sent via Careport to [facility] per TCC request. [facility] 08-09-2024 Note Formatting of this n ote might be different from the original. Discharge summary and med list sent via Careport to [facility] per [facility] request. [facility] 08-09-2024 Note Discharge summary an d med list sent via Careport to [facility] per [facility] request. [facility] 08-09-2024 Note Formatting of this n ote might be different from the original. Auth received. Patient with active dc orders. Transportation arranged through [employer] with estimated picker box operator time of 1930. VM left with daughter Fidel along with 3N phone number to call with questions. Bedside RN aware. Facility updated. [facility] rubber compounder supervisor sent orders to [facility]. [facility] 08-09-2024 Note Formatting of this n ote might be different from the original. Auth received. Patient with active dc orders. Transportation arranged through [employer] with estimated picker box operator time of 1930. left with milady Stokes along with 3N phone number to call with questions. Bedside RN aware. Facility updated. [facility] rubber compounder supervisor sent orders to [facility]. [facility] 08-09-2024 Note Formatting of this n ote might be different from the original. residential mortgage manager was asked to assist with setting up transport back to [facility] this evening. secretary to the vice president had already done so, but this physical therapy manager called daughter to inform her of discharge and transport set up. Daughter did not wish patient to return to the SNF. Jewel Bearing Maker told her that patient is medically stable for dc and that she should continue the discussion with the psych social worker and health services administrator at The snf, and also get options from [employer]. Coordinator was to message the snf about return this evening via CarePort. [facility] 08-09-2024 Note Formatting of this n ote might be different from the original. residential mortgage manager was asked to assist with setting up transport back to [facility] this evening. secretary to the vice president had already done so, but this physical therapy manager called daughter to inform her of discharge and transport set up. Daughter did not wish patient to return to the SNF. Jewel Bearing Maker told her that patient is medically stable for dc and that she should continue the discussion with the psych social worker and health services administrator at [facility], and also get options from [employer]. Coordinator was to message the snf about return this evening via [facility]Port. [facility] 08-09-2024 Note [facility] 08-09-2024 Hospital course Narrative Hospitalist Discharge [...] Pure hypercholesterolemia 03/07/2020 PVD (peripheral vascular disease) ([facility]) Stroke ([facility]) Procedures: NA Hospital Course: Mel is a 83 y.o. female with past medical history below who presents with chief complaint listed above.Patient is an 83 y/o female who presented to [facility] early this AM [place] local [place] and diarrhea. Patient reported she [...] Ellipta 100-62.5-25 MCG/ACT aerosol powder Generic drug: Lnahgaeddue-Ihbrgburd-Pdeknn STOP taking these medications enoxaparin 80 MG/0.8ML [...] Complexity: follow up within 7-14 calendar days (34912) [x] Severe Complexity: follow up within 7 calendar days (02174) Follow up Testing, Pending results or Referrals [...] frame. Signed: Kael Anderson DO [email or web address] 08/09/2024, 4:23 PM documented in this encounter [facility] 08-09-2024 Note Formatting of this n ote might be different from the original. Updated PT/OT notes placed to [facility] via Careport per TCC request. Await review and response regarding ability to accept. TCC notified. Electronically signed by [facility] Aracelis Gardiner [facility] 08-09-2024 Note Formatting of this n ote might be different from the original. Updated PT/OT notes placed to [facility] via [facility]port per TCC request. Await review and response regarding ability to accept. TCC notified. Electronically signed by [facility] Aracelis Gardiner [facility] 08-09-2024 Note Formatting of this n ote might be different from the original. Patient is medically ready for dc. PT/OT both continuing to recommend SNF. [employer] physical therapy manager asked to start auth. Plan to dc back to [facility] pending auth [facility] 08-09-2024 Note Formatting of this n ote might be different from the original. Patient is medically ready for dc. PT/OT both continuing to recommend SNF. [employer] physical therapy manager asked to start auth. Plan to dc back to [facility] pending auth [facility] 08-08-2024 Note Formatting of this n ote might be different from the original. I was off Yesterday, PT note was in from Tuesday. Therapy to see today was sent out to OT Tuesday to see yesterday. Pt was not seen. I did sent a therapy to see today to PT/OT so an auth can be started. Pt will Be Dc'd to [facility]. CM to follow. [employer] [facility] 08-08-2024 Note Formatting of this n ote might be different from the original. I was off Yesterday, PT note was in from Tuesday. Therapy to see today was sent out to OT Tuesday to see yesterday. Pt was not seen. I did sent a therapy to see today to PT/OT so an auth can be started. [facility]. CM to follow. [facility] 08-07-2024 Plan of care note Problem: Knowledge Deficit Goal: Patient/family/caregiver demonstrates understanding of disease process, treatment plan, medications, and discharge instructions Outcome: Progressing Problem: Potential for Compromised Skin Integrity Goal: Skin Integrity is Maintained or Improved Outcome: Progressing Goal: Nutritional status is improving Outcome: Progressing [employer] [facility] 08-07-2024 Plan of care note Problem: Knowledge [...] Interventions Goal: Assess Nutritional Intake Outcome: Progressing [employer] [facility] 08-07-2024 Note Formatting of this n ote might be different from the original. Case Management Progress Note: Patient remains on 5N for concern with aspiration 2/2 vomiting. Discharge Plan: Return to [facility]. Therapy eval needed for precert. TCC to assist and follow as needed. [employer] 08-07-2024 Note Formatting of this n ote might be different from the original. Case Management Progress Note: Patient remains on 5N for concern with aspiration 2/2 vomiting. Discharge Plan: Return to [facility]. Therapy eval needed for precert. TCC to assist and follow as needed. [facility] 08-07-2024 Plan of care note Problem: Knowledge [...] Interventions Goal: Assess Nutritional Intake Outcome: Progressing [facility] 08-06-2024 Plan of care note Problem: Knowledge [...] Interventions Goal: Assess Nutritional Intake Outcome: Progressing [facility] 08-06-2024 Note Formatting of this n ote might be different from the original. Pt cont's on IV AtBs'. Plan is for pt to return to [facility]. Auth and HECTOR needed prior to DC. CM to follow. [facility] 08-06-2024 Note Formatting of this n ote might be different from the original. Pt cont's on IV AtBs'. Plan is for pt to return to [facility]. Auth and HECTOR needed prior to DC. CM to follow. [facility] 08-06-2024 Note Formatting of this n ote might be different from the original. Per attending pt ready for DC. Pt will return to [facility]. Pt needs PT/OT to start auth Therapy to see put in for alistair so auth can be started. HECTOR will need completed. CM to follow. [facility] 08-06-2024 Note Formatting of this n ote might be different from the original. Per attending pt ready for DC. Pt will return to [facility]. Pt needs PT/OT to start auth Therapy to see put in for alistair so auth can be started. HECTOR will need completed. CM to follow. [facility] 08-06-2024 Consult note Associated Order (s): IP [...] assess Fluid Accumulation: No significant fluid accumulation Front Office Specialist Strength: Not Performed Nutrition Assessment: Pt hx HTN, stroke, COPD, CKD, IBS. Admitted w/ vomiting and diarrhea. +norovirus. Started on abx for concern of aspiration pna. Pt's symptoms have improved during admission. Consuming and tolerating CLD. Medically stable for discharge back to SNF per notes. Estimated Daily Nutrient Needs: Energy Requirements Based On: Kcal/kg Weight Used for Energy Requirements: [place] Weight for Energy Calculation (kg): 54 kg Total Energy Requirements (kcals/day): 9911-1841 Weight Used for Protein Requirements: [place] Weight in Kg Used for Protein Requirements: [...] 160# 07/05) % Weight Change (Calculated): 12.2 [place] Body Weight (lbs) (Calculated): 119 lbs [place] Body Weight (Kg) (Calculated): 54 kg BMI [...] to determine Gabriella Michelle RD, LD Contact: [phone] [facility] [employer] [facility] 08-06-2024 Consult note Associated Order (s): IP [...] assess Fluid Accumulation: No significant fluid accumulation Front Office Specialist Strength: Not Performed Nutrition Assessment: Pt hx HTN, stroke, COPD, CKD, IBS. Admitted w/ vomiting and diarrhea. +norovirus. Started on abx for concern of aspiration pna. Pt's symptoms have improved during admission. Consuming and tolerating CLD. Medically stable for discharge back to SNF per notes. Estimated Daily Nutrient Needs: Energy Requirements Based On: Kcal/kg Weight Used for Energy Requirements: [place] Weight for Energy Calculation (kg): 54 kg Total Energy Requirements (kcals/day): 3385-8706 Weight Used for Protein Requirements: [place] Weight in Kg Used for Protein Requirements: [...] 160# 07/05) % Weight Change (Calculated): 12.2 [place] Body Weight (lbs) (Calculated): 119 lbs [place] Body Weight (Kg) (Calculated): 54 kg BMI [...] to determine Gabriella Michelle RD, LD Contact: [phone] documented in this encounter [facility] 08-06-2024 Plan of care note Problem: Knowledge Deficit Goal: Patient/family/caregiver demonstrates understanding of disease process, treatment plan, medications, and discharge instructions Outcome: Progressing Problem: Potential for Compromised Skin Integrity Goal: Skin Integrity is Maintained or Improved Outcome: Progressing Goal: Nutritional status is improving Outcome: Progressing Problem: Urinary Incontinence Goal: Perineal skin integrity is maintained or improved Outcome: Progressing [facility] 08-05-2024 Plan of care note Problem: Knowledge Deficit Goal: Patient/family/caregiver demonstrates understanding of disease process, treatment plan, medications, and discharge instructions Outcome: Progressing Problem: Potential for Compromised Skin Integrity Goal: Skin Integrity is Maintained or Improved Outcome: Progressing Goal: Nutritional status is improving Outcome: Progressing Problem: Urinary Incontinence Goal: Perineal skin integrity is maintained or improved Outcome: Progressing [facility] 08-04-2024 Plan of care note Problem: Knowledge Deficit Goal: Patient/family/caregiver demonstrates understanding of disease process, treatment plan, medications, and discharge instructions Outcome: Progressing Problem: Potential for Compromised Skin Integrity Goal: Skin Integrity is Maintained or Improved Outcome: Progressing Goal: Nutritional status is improving Outcome: Progressing Problem: Urinary Incontinence Goal: Perineal skin integrity is maintained or improved Outcome: Progressing [facility] 08-04-2024 Nurse Note Bedside swallow completed. Pt passed and tolerated well tolerated well. [facility] 08-04-2024 Plan of care note Problem: Knowledge Deficit Goal: Patient/family/caregiver demonstrates understanding of disease process, treatment plan, medications, and discharge instructions Outcome: Progressing Problem: Potential for Compromised Skin Integrity Goal: Skin Integrity is Maintained or Improved Outcome: Progressing Goal: Nutritional status is improving Outcome: Progressing Problem: Urinary Incontinence Goal: Perineal skin integrity is maintained or improved Outcome: Progressing [facility] 08-03-2024 Plan of care note [...] 0842 by Lima Saenz RN Outcome: Progressing [facility] 08-03-2024 Note Formatting of this n ote might be different from the original. Return referral placed to [facility] via Careport per TCC request. Await review and response regarding ability to accept. TCC notified. [facility] 08-03-2024 Note Formatting of this n ote might be different from the original. Return referral placed to [facility] via Careport per TCC request. Await review and response regarding ability to accept. TCC notified. [facility] 08-03-2024 Note Return referral plac ed to [facility] via Careport per TCC request. Await review and response regarding ability to accept. TCC notified. [facility] 08-03-2024 Note Formatting of this n ote might be different from the original. Pt to ED w N/V/Diarrhea, was Dx w Aspiration pneumonitis. Started on IV ATB's. Called pt's DtrFidel, . Pt is from [facility]. Plan on returning. [facility] tasked to send a return referral. [facility] 08-03-2024 Note Formatting of this n ote might be different from the original. Pt to ED w N/V/Diarrhea, was Dx w Aspiration pneumonitis. Started on IV ATB's. Called pt's DtrFidel, . Pt is from [facility]. Plan on returning. [facility] tasked to send a return referral. [facility] 08-03-2024 History and physical note Attending History and Physical Admit Date: 08/03/2024 PCP: Jared Evans MD CHIEF COMPLAINT: vomiting/diarrhea Reason for Admission: aspiration pneumonitis History Obtained From: patient HISTORY OF PRESENT ILLNESS: Mel is a 83 y.o. female with past medical history below who presents with chief complaint listed above.Patient is an 83 y/o female who presented to [facility] early this AM from local [place] for vomiting and diarrhea. Patient reported she [...] min Stress: Patient Unable To Answer (08/03/2024) [facility] - Occupational Stress Questionnaire Feeling of Stress : Patient unable to answer Social Connections: Unknown (08/03/2024) Social Connection and Isolation Panel [NHANES] Frequency of Communication with Friends and Family: Patient unable to answer Frequency of Social Gatherings with Friends and Family: Patient unable to answer Attends Taoism Services: Patient unable to answer Active Member of Clubs or Organizations: Patient unable to answer Attends Club or Organization Meetings: Never Marital Status: Patient unable to answer Recent Concern: Social Connections - Moderately Isolated (06/20/2024) Received from [facility] Social Connection and Isolation Panel [NHANES] Frequency of Communication with Friends and Family: More than three times a week Frequency of Social Gatherings with Friends and Family: Once a week Attends Taoism Services: More than 4 times per year [...] pursued: - inpatient admission to [facility] tele - check stool studies and [...] - DO NOT do CPR, intubation] [_] [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 female with past medical history below who presents with chief complaint listed above.Patient is an 83 y/o female who presented to [facility] early this AM [place] and diarrhea. Patient reported she [...] min Stress: Patient Unable To Answer (08/03/2024) [facility] - Occupational Stress Questionnaire Feeling of Stress : Patient unable to answer Social Connections: Unknown (08/03/2024) Social Connection and Isolation Panel [NHANES] Frequency of Communication with Friends and Family: Patient unable to answer Frequency of Social Gatherings with Friends and Family: Patient unable to answer Attends Taoism Services: Patient unable to answer Active Member [...] Friends and Family: Once a week Attends Taoism Services: More than 4 times per year [...] pursued: - inpatient admission to [facility] tele - check stool studies and [...] BroderickDamaris NOT CALL-TERMINALLY ILL Mobile Relation: Friend [employer] Mel Pop : 1940 Primary Care Physician: Jared Evans MD The patient and/or family/surrogate voluntarily agreed to participate in ACP services. 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 Cosigned by Abbi Long DO [...] or regular rigidity documented in this encounter [facility] 08-03-2024 Plan of care note Problem: Potential for Compromised Skin Integrity Goal: Skin Integrity is Maintained or Improved 08/03/2024 0842 by Lima Saenz RN Outcome: Progressing 08/03/2024 0842 by Lima Saenz RN Outcome: Progressing Problem: Potential for Compromised Skin Integrity Goal: Nutritional status is improving 08/03/2024 0842 by Lima Saenz RN Outcome: Progressing 08/03/2024 0842 by Lima Saenz RN Outcome: Progressing [facility] 08-03-2024 Plan of care note Problem: Knowledge Deficit Goal: Patient/family/caregiver demonstrates understanding of disease process, treatment plan, medications, and discharge instructions Outcome: Progressing Problem: Potential for Compromised Skin Integrity Goal: Skin Integrity is Maintained or Improved Outcome: Progressing [facility] 08-03-2024 Emergency department Note Pt placed in roundtrip [facility] 08-03-2024 Emergency department Note Pt placed in [...] who presents to the emergency department from [facility] for acute onset nausea/vomiting/diarrhea x 3 episodes that began 45 minutes prior to arrival. No blood in emesis or diarrhea. Given single dose of Zofran by senior care staff following first episode but subsequently soon [...] 45 minutes prior to ED transport for senior care. FDC reports a second resident with similar [...] Resource Strain: Low Risk (06/20/2024) Received from [facility] Overall Financial Resource Strain (CARDIA) Difficulty of Paying Living Expenses: Not very hard Food Insecurity: No Food Insecurity (07/09/2024) Received from [facility] Hunger Vital Sign Worried About Running Out of Food in the Last Year: Never true Ran Out of Food in the Last Year: Never true Transportation Needs: No Transportation Needs (07/09/2024) Received from [facility] PRAPARE - Transportation Lack of Transportation (Medical): No Lack of Transportation (Non-Medical): No Physical Activity: Inactive (04/04/2024) Exercise Vital Sign Days of Exercise per Week: 0 days Minutes of Exercise per Session: 0 min Stress: No Stress Concern Present (06/19/2024) Received from [facility] - Occupational Stress Questionnaire Feeling of Stress : Not at all Social Connections: Moderately Isolated (06/20/2024) Received from [facility] Social Connection and Isolation Panel [NHANES] Frequency of Communication with Friends and Family: More than three times a week Frequency of Social Gatherings with Friends and Family: Once a week Attends Taoism Services: More than 4 times per year Active Member of Clubs or Organizations: No Attends Club or Organization Meetings: Never Marital Status: Intimate Partner Violence: Not At Risk (06/19/2024) Received from [facility] Domestic Abuse Assessment Do you feel safe in your relationships at home?: Yes Physical Abuse: Denies Verbal Abuse: Denies Housing Stability: Low Risk (07/09/2024) Received from [facility] Housing Stability Vital Sign Unable to [...] No bowel dilatation Report Dictated on Workstation: [employer] Electronically Signed By: Ming Fry MD Electronically Signed Date/Time: 08/03/2024 4:05 AM EST XR chest 1 view Final Result No acute abnormality Report Dictated on Workstation: [employer] Electronically Signed By: Ming Fry MD Electronically [...] In compliance with this authorization, please visit www.fda.gov/media/873843/download or www.fda.gov/media/690553/download to access the applicable information sheets. LIPASE [...] who presents to the emergency department from [facility] for acute onset nausea/vomiting/diarrhea x 3 episodes that began 45 minutes prior to arrival. No blood in emesis or diarrhea. Given single dose of Zofran by senior care staff following first episode of emesis but [...] 45 minutes prior to ED transport for senior care. FDC reports a second resident with similar [...] baseline. Patient admitted to medical service at [facility] under Dr. Parrish. ED Medications managed: [...] 0406) FINAL IMPRESSION 1. Aspiration pneumonitis (CMS/HCC) ([facility]) 2. Vomiting and diarrhea 3. LORENZA (acute kidney injury) ([facility]) DISPOSITION Observation 08/03/2024 04:20:39 AM PATIENT REFERRED [...] DO 08/03/24 0422 documented in this encounter [facility] 08-03-[address] and ED xray notified that patient is ready [facility] 08-03-2024 Physician Emergency department Note [...] who presents to the emergency department from [facility] for acute onset nausea/vomiting/diarrhea x 3 episodes that began 45 minutes prior to arrival. No blood in emesis or diarrhea. Given single dose of Zofran by senior care staff following first episode but subsequently soon [...] 45 minutes prior to ED transport for senior care. FDC reports a second resident with similar [...] Resource Strain: Low Risk (06/20/2024) Received from [facility] Overall Financial Resource Strain (CARDIA) Difficulty of Paying Living Expenses: Not very hard Food Insecurity: No Food Insecurity (07/09/2024) Received from [facility] Hunger Vital Sign Worried About Running Out of Food in the Last Year: Never true Ran Out of Food in the Last Year: Never true Transportation Needs: No Transportation Needs (07/09/2024) Received from [facility] PRAPARE - Transportation Lack of Transportation (Medical): No Lack of Transportation (Non-Medical): No Physical Activity: Inactive (04/04/2024) Exercise Vital Sign Days of Exercise per Week: 0 days Minutes of Exercise per Session: 0 min Stress: No Stress Concern Present (06/19/2024) Received from [facility] - Occupational Stress Questionnaire Feeling of Stress : Not at all Social Connections: Moderately Isolated (06/20/2024) Received from [facility] Social Connection and Isolation Panel [NHANES] Frequency of Communication with Friends and Family: More than three times a week Frequency of Social Gatherings with Friends and Family: Once a week Attends Taoism Services: More than 4 times per year Active Member of Clubs or Organizations: No Attends Club or Organization Meetings: Never Marital Status: Intimate Partner Violence: Not At Risk (06/19/2024) Received from [facility] Domestic Abuse Assessment Do you feel safe in your relationships at home?: Yes Physical Abuse: Denies Verbal Abuse: Denies Housing Stability: Low Risk (07/09/2024) Received from [facility] Housing Stability Vital Sign Unable to [...] abnormality Report Dictated on Electronically Signed By: iMng Fry MD Electronically Signed Date/Time: 08/03/2024 3:33 [...] In compliance with this authorization, please visit www.fda.gov/media/830332/download or www.fda.gov/media/299968/download to access the applicable information sheets. LIPASE [...] who presents to the emergency department from [facility] for acute onset nausea/vomiting/diarrhea x 3 episodes that began 45 minutes prior to arrival. No blood in emesis or diarrhea. Given single dose of Zofran by senior care staff following first episode of emesis but [...] 45 minutes prior to ED transport for senior care. [facility] reports a second resident with similar [...] baseline. Patient admitted to medical service at [facility] under Dr. Parrish. ED Medications managed: [...] 0406) FINAL IMPRESSION 1. Aspiration pneumonitis (CMS/HCC) ([facility]) 2. Vomiting and diarrhea 3. LORENZA (acute kidney injury) ([facility]) DISPOSITION Observation 08/03/2024 04:20:39 AM PATIENT REFERRED [...] Medicine Provider Mariana King DO 08/03/24 0422 [facility] 08-01-2024 Instructions Savana Lopez MD - 08/01/2024 1:06 PM EST - Continue Pred forte 4x / day right eye - Stop Cipro - Stop Brimonidine - Continue erythromycin antibiotic ointment as needed - Continue Atropine daily RIGHT eye - Continue Timolol 2x / day RIGHT EYE documented in this encounter [facility] 08-01-2024 Note HNO ID: [id number] Author: SAVANA LOPEZ MD Service: ? Author [...] choroidals (not yet appositional) - Evaluated at [facility] 07/12/24 with intense nausea and multiple episodes [...] to HTN (SBP 199/99 at presentation to [facility]) and anticoagulation that led to angle closure [...] choroidals (not yet appositional) - Evaluated at [facility] 07/12/24 with intense nausea and multiple episodes [...] to HTN (SBP 199/99 at presentation to [facility]) and anticoagulation that led to angle closure and elevated IOP - Alternatively IOP change s/p LPI may have led to hemorrhagic choroidals but since pseudophakic, would be rare to have developed acute angle closure - Patient adamantly denies any trauma but did have significant eye tearing with rubbing of eye day prior to development of symptoms - SUMANTH1 s/p choroidal drainage right eye on 07/13/24 [...] relevant components. documented in this encounter [facility] 07-30-2024 Note HNO ID: [id number] Author: JOHN PHELAN MD Service: ? Author [...] components. [facility] 07-30-2024 Note HNO ID: [id number] Author: JOHN PHELAN MD Service: ? Author [...] Ciprofloxacin (flores cap) 4x daily Atropine (registered nurse cardiovascular icu) 1x daily Continue timolol (yellow cap) 2x [...] C Trouble breathing Contact Dr. Savana Lopez [phone] weekdays from 8am-5pm During non-business hours, please call [phone] or ext [phone] and ask for the eye doctor clinical nutrition manager. documented in this encounter [facility] 07-27-2024 Note HNO ID: [id number] Author: NICOLAS SAHU MD Service: ? Author [...] Surgery Fellow documented in this encounter [facility] 07-27-2024 Note HNO ID: [id number] Author: MIKHAIL NICHOLS APRN.HERBICIDE SERVICE SALES REPRESENTATIVE Service: ? Author Type: Nurse Roll Up Guider Operator Type: Anesthesia Procedure Notes Filed: 07/27/2024 11:25 Note Text: ANESTHESIOLOGY PROCEDURE NOTE Airway General Information Procedure Start Time/Medication Administration: 07/27/2024 11:21 AM Procedure End Time: 07/27/2024 11:24 AM Staffing Anesthesiologist: Robinson Brunner MD HERBICIDE SERVICE SALES REPRESENTATIVE: Mikhail Nichols APRN.HERBICIDE SERVICE SALES REPRESENTATIVE Performed by: anesthesiologist and HERBICIDE SERVICE SALES REPRESENTATIVE Indications and Patient Condition Indications for airway management: anesthesia Preoxygenated: yes Patient position: sniffing Method: asleep Final Airway Details Final airway type: supraglottic airway Number of attempts at approach: 1 Final Supraglottic Airway: LMA Classic Size 4 Seal Adequate: yes Failed airway: no Unrecognized esophageal intubation: no SIGNATURE: Mikhail Nichols APRN.HERBICIDE SERVICE SALES REPRESENTATIVE PATIENT NAME: Mel Castillo DATE: July 27, 2024 TIME: 11:24 AM CSN: [id number] [facility] 07-24-2024 Note Date of Procedure 07/23/2024. Instructional Design Technologist Information Commercial Attorney: WESLEY. Start time: 10:44 AM. No view. In wheelchair. Unable to get low enough for photo in downgaze without discomfort. Notes Hazy view, VH; choroidals; possible RD [facility] 07-24-2024 Note Date of Procedure 07/23/2024. Instructional Design Technologist Information STEWART Donovan CDOS 07/23/2024 11:24 AM [...] - Decrease atropine daily right eye (registered nurse cardiovascular icu) - Continue prednisolone QID right eye (pink [...] than 30 days before your surgery. My senior clinical data coordinator will be contacting you to schedule this appointment. Your exact time of surgery will not be determined until the day before surgery. My senior clinical data coordinator will call you the day before your surgery to advise you what time to arrive at the [facility] on the first floor at the [facility]. My senior clinical data coordinator is Gaston, her number is [phone] Please do no wear contact lenses. We [...] retina fellow. It will be at the [facility] on the 2nd floor. We will review [...] Regine Gan in the Pre-anesthesia Consultation Clinic ([phone]) to get instructions on their use before [...] call Regine Gan or a Pre-Anesthesia Testing support team member at [phone]. documented in this encounter [facility] 07-23-2024 Note HNO ID: [id number] Author: SAVANA LOPEZ MD Service: ? Author [...] choroidals (not yet appositional) - Evaluated at [facility] 07/12/24 with intense nausea and multiple episodes [...] to HTN (SBP 199/99 at presentation to [facility]) and anticoagulation that led to angle closure [...] to HTN (SBP 199/99 at presentation to [facility]) and anticoagulation that led to angle closure [...] relevant components. documented in this encounter [facility] 07-18-2024 Note HNO ID: [id number] Author: JACI JUAREZ RN Service: Nursing Author Type: Registered Nurse Type: Progress Notes Filed: 07/18/2024 14:08 Note Text: Report given to nurse at [facility]. Transport running behind schedule. [facility] 07-16-2024 Note HNO ID: [id number] Author: MICHAEL SOARES MD Service: Ophthalmology Author Type: Resident Type: Plan of Care Filed: 07/16/2024 21:02 Note Text: Patient evaluated today at [facility] by retina attending Dr. Lopez. Assessment/plan copied [...] choroidals (not yet appositional) - Evaluated at [facility] 07/12/24 with intense nausea and multiple episodes [...] to HTN (SBP 199/99 at presentation to [facility]) and anticoagulation that led to angle closure [...] be admitted for this but may need residential facility due to limited vision in her monocular eye; she has a very poor prognosis; there is no guarantee surgery will improve her vision but need to wait for any possible surgery for more liquefaction; maybe could do 07/31/24? - I will see her in 1 week for repeat B-scan OD / Optos OD" [facility] 07-16-2024 Note HNO ID: [id number] Author: ALAINA TIPTON RN Service: ? Author [...] aware. [facility] 07-16-2024 Note HNO ID: [id number] Author: TRACEY NANCE RN Service: Care Management Author Type: Registered Nurse Type: Care Mgt Progress Note Filed: 07/16/2024 16:49 Note Text: CARE MANAGEMENT PROGRESS NOTE SERVICE DATE: 07/16/2024 SERVICE TIME: 1:04 PM LOS: 9 days Post-Acute Discharge Planning Patient Goal(s): Increase strength [place] of Choice Explained: Discharge Planning Participant(s): Patient/Family Comments: Anticipated # of Days Until Discharge: 0 Transport at Discharge: Needs Prior to Discharge: Needs Prior to Discharge: OT/PT Evaluation Post-Acute Discharge Plan: Discharge to [facility] per [facility]OC. Await updated PT for pre cert initiation. SIGNATURE: Tracey Nance RN PATIENT NAME: Mel Castillo DATE: July 16, 2024 TIME: 1:04 PM [facility] 07-16-2024 Note Date of Procedure 07/16/2024. Instructional Design Technologist Information Commercial Attorney: Arin Vital. Start time: 8:56 AM. Stop time: 8:56 AM. 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 Instructional Design Technologist Information STEWART Donovan 07/16/2024 9:34 AM . [...] choroidals (not yet appositional) - Evaluated at [facility] 07/12/24 with intense nausea and multiple episodes [...] to HTN (SBP 199/99 at presentation to [facility]) and anticoagulation that led to angle closure [...] be admitted for this but may need residential facility due to limited vision in her [...] relevant components. documented in this encounter [facility] 07-16-2024 Note HNO ID: [id number] Author: SAVANA LOPEZ MD Service: ? Author [...] choroidals (not yet appositional) - Evaluated at [facility] 07/12/24 with intense nausea and multiple episodes [...] to HTN (SBP 199/99 at presentation to [facility]) and anticoagulation that led to angle closure [...] be admitted for this but may need residential facility due to limited vision in her [...] included)... [facility] 07-16-2024 Note HNO ID: [id number] Author: BRIANA PRITCHARD MD Service: General Internal [...] AM seen by ophthalmology at [facility] appointment Objective MEDICATIONS: Current Facility-Administered Medications [...] Drain Duration External Collection Device 07/15/24 1000 [facility] <1 day Intake/Output 07/12/24 0700 - 07/13/24 0659 07/13/24 0700 - 07/14/24 0659 07/14/24 0700 - 07/15/24 0659 07/15/24 0700 - 07/16/24 0659 Intake (ml) 675 200 0 480 Output (ml) -- 0 -- -- Net (ml) 675 200 0 480 Last Weight: 68.9 kg (152 lb) (07/15/24 174) Admit Weight: 68.9 kg (152 lb) (07/15/24 1746) LABS: CBC: Recent Labs 07/16/24 0544 07/15/24 [...] included)... [facility] 07-15-2024 Note HNO ID: [id number] Author: OTILIO GERBER MD Service: Ophthalmology Author [...] to HTN (SBP 199/99 at presentation to [facility]) that caused angle closure and elevated IOP [...] BRING PATIENT DOWN FOR FOLLOW UP AT [facility] - Post-op precautions reviewed, including: Signs and symptoms of endophthalmitis, and retinal detachment warning signs reviewed, including increasing floaters, flashes or changes in peripheral vision. [facility] 07-15-2024 Note HNO ID: [id number] Author: BRIANA PRITCHARD MD Service: General Internal Medicine Author Type: Physician Type: Progress Notes Filed: 07/15/2024 12:59 Note Text: Internal Medicine - Dae Chaudhry Progress Note Patient Name: Mel Castillo [address] Admission Date: 07/07/2024 Length of Stay: [...] Max: 36.9 ?C (98.4 ?F) Pulse: 69 (07/15/24 0433) Pulse Min: 59 Max: 85 Resp: 17 [...] included)... [facility] 07-14-2024 Note HNO ID: [id number] Author: BRIANA PRITCHARD MD Service: Hospital Medicine Author Type: Physician Type: Progress Notes Filed: 07/14/2024 13:37 Note Text: Internal Medicine - Dae Chaudhry Progress Note Patient Name: Mel Castillo [address] Admission Date: 07/07/2024 Length of Stay: [...] included)... [facility] 07-14-2024 Note HNO ID: [id number] Author: NICOLAS SAHU MD Service: Ophthalmology Author [...] choroidals (not yet appositional) - Evaluated at [facility] 07/12/24 with intense nausea and multiple episodes [...] to HTN (SBP 199/99 at presentation to [facility]) that caused angle closure and elevated IOP [...] Fellow [facility] 07-13-2024 Note HNO ID: [id number] Author: MARCIA MARTINS APRN.HERBICIDE SERVICE SALES REPRESENTATIVE Service: ? Author Type: Nurse Roll Up Guider Operator Type: Anesthesia Procedure Notes Filed: 07/13/2024 12:43 Note Text: ANESTHESIOLOGY PROCEDURE NOTE Airway General Information Procedure Start Time/Medication Administration: 07/13/2024 12:28 PM Procedure End Time: 07/13/2024 12:42 PM Patient location during procedure: OR Timeout Performed Pre-procedure: timeout performed Consent Obtained: Yes Patient identity confirmed: arm band, care support team member and patient Staffing HERBICIDE SERVICE SALES REPRESENTATIVE: Marcia Martins APRN.HERBICIDE SERVICE SALES REPRESENTATIVE Performed by: HERBICIDE SERVICE SALES REPRESENTATIVE Indications and Patient Condition Indications for airway management: anesthesia Preoxygenated: yes anesthesia circuit Method: sleep Difficult Mask: No Final Airway Details Final airway type: supraglottic airway Number of attempts at approach: 1 Final Supraglottic Airway: Supraglottic airway: ambu auraonce. Size 4 Seal Adequate: yes Failed airway: no Unrecognized esophageal intubation: no Airway not difficult Comments atraumatic SIGNATURE: Marcia Martins, MARKETING STRATEGY LEAD.HERBICIDE SERVICE SALES REPRESENTATIVE PATIENT NAME: Mel Castillo DATE: July 13, 2024 TIME: 12:42 PM CSN: [id number] [facility] 07-13-2024 Note HNO ID: [id number] Author: FELICIA LEVY MD Service: General Internal [...] of vision now s/p laser iridotomy at [facility] then trasnferred to [facility] for further management. S/p multiple peripheral [...] Patient Name: Mel Castillo Patient Location: [address] [facility]/H060-31 Admission Date: 07/07/2024 Length of Stay: 6 Primary Service: DAE Chaudhry Staff: Felicia Levy* Primary Service: Dae Chaudhry INTERVAL HISTORY: - NAEO. - Afebrile. VSS. - Evaluated by Ophtho 07/12. IOP slightly elevated . Underwent repeat B scan showing possibly worsening [...] included)... [facility] 07-12-2024 Note HNO ID: [id number] Author: TRACEY NANCE RN Service: Care Management Author Type: Registered Nurse Type: Care Mgt Progress Note Filed: 07/12/2024 16:50 Note Text: CARE MANAGEMENT PROGRESS NOTE SERVICE DATE: 07/12/2024 SERVICE TIME: 4:46 PM LOS: 5 days Post-Acute Discharge Planning Patient Goal(s): Increase strength [place] of Choice Explained: Discharge Planning Participant(s): Patient/Family Comments: Anticipated # of Days Until Discharge: 0 Transport at Discharge: Needs Prior to Discharge: Post-Acute Discharge Plan: Await SNF choices spoke w/ daughter in law Fidel Garcia sent to [facility] yesterday. This CM reached out to [facility] via email for choices. Daughter In law cannot recall selections. covering CM will need to reach out to [facility] tomorrow for selections that were emailed to her. SIGNATURE: Tracey Nance RN PATIENT NAME: Mel Castillo DATE: July 12, 2024 TIME: 4:46 PM [facility] 07-12-2024 Note Date of Procedure 07/12/2024. Instructional Design Technologist Information CHAR Veliz ROUB 07/12/2024 12:15 PM . Notes B scan OD: From wheelchair. Patient vomiting during this visit. Best images possible. 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 Possible increased height maximum now at 12:00 measuring 10.0 mm. 2) Not able to assess for mobility today due to patient discomfort 3) SRF over choroidals in three quadrants. [facility] 07-12-2024 Note Date of Procedure 07/12/2024. Instructional Design Technologist Information Commercial Attorney: JACQUELINE. Imaging Comments: Limited exam due to patient discomfort-best images possible . Notes Worsening choroid detachments [facility] 07-12-2024 Note HNO ID: [id number] Author: THOMAS SCHMITZ MD Service: ? Author Type: Resident Type: Progress Notes Filed: 07/12/2024 14:52 Note Text: Interval history: - Patient now endorsing 10, nausea and vomiting Assessment/Plan: PMH: COPD, HLD, [...] choroidals (not yet appositional) - Evaluated at [facility] 07/12/24 with intense nausea and multiple episodes [...] to HTN (SBP 199/99 at presentation to [facility]) that caused angle closure and elevated IOP [...] choroidals (not yet appositional) - Evaluated at [facility] 07/12/24 with intense nausea and multiple episodes [...] to HTN (SBP 199/99 at presentation to [facility]) that caused angle closure and elevated IOP [...] Dr. Phelan documented in this encounter [facility] 07-12-2024 Note HNO ID: [id number] Author: FELICIA LEVY MD Service: General Internal [...] of vision now s/p laser iridotomy at [facility] then trasnferred to [facility] for further management. S/p multiple peripheral [...] possible dispo to SNF or home with [facility] (challenging given multiple daily eye drops and medications) - Rest per excellent note by resident Signature: Felicia Levy MD Date: 07/12/2024 Time: 1:27 PM Internal Medicine - Dae Chaudhry Progress Note Patient Name: Mel Castillo Patient Location: [facility] 031/H060-31 Admission Date: 07/07/2024 Length of Stay: 5 Primary Service: DAE Chaudhry Staff: Felicia Levy* Primary Service: Dae Chaudhry INTERVAL HISTORY: - NAEO. - Afebrile. VSS. - Worsening eye pain today. 10. Deep throbbing pain with gritty eye sensation. [...] included)... [facility] 07-11-2024 Note HNO ID: [id number] Author: FELICIA LEVY MD Service: General Internal [...] of vision now s/p laser iridotomy at [facility] then trasnferred to [facility] for further management. S/p multiple peripheral [...] Patient Name: Mel Castillo [address] Admission Date: 07/07/2024 Length of Stay: 4 Primary Service: DAE hCaudhry Staff: Felicia Levy* Primary Service: Dae Chaudhry [...] included)... [facility] 07-10-2024 Note HNO ID: [id number] Author: FELICIA LEVY MD Service: General Internal [...] of vision now s/p laser iridotomy at [facility] then trasnferred to [facility] for further management. S/p multiple peripheral [...] Patient Name: Mel Castillo Patient Location: [address] [facility]/H060-31 Admission Date: 07/07/2024 Length of Stay: 3 [...] included)... [facility] 07-09-2024 Note HNO ID: [id number] Author: TRACEY NANCE RN Service: Care Management [...] Current Advance Directive: Health Care Power of Glass Products Inspector In Chart: Yes Up To Date and Valid: Yes Current Living Arrangements and Support Lives with: Alone Type of Residence: Mobile Home Support: Friends/neighbors, Family members How do you manage to accomplish the following: Independent: Ambulation;Bathe/Shower;Dress;Angélica g to the bathroom Needs Assistance: Meals/Meal Prep;Medication Management;Transportation to appointments/community Current Services/Equipment Discharge Planning Patient Goal(s): Increase strength [place] of Choice Explained: [place] of Choice Given: Yes Level of Care Discussed: Home Care Are you interested in bedside delivery of your medications? Yes Discharge Planning Participant(s): Caregiver;Family Patient/Family Comments: Fidel Hdez (Other) Caregiver Assessment: Caregiver is ready, willing and able to meet the patient's needs as recommended by the inter-professional team: (friends) Transport at Discharge: Transportation Arrangements: Car Destination: [id number] [place] [address] [address] [place] [address] Needs Prior to Discharge: Post-Acute Discharge Plan: Anticipate DC home with C 24-48 hours. HC referrals placed . Await OT evaluation. Patient lives alone in trailer , There are 4 steps to entrance, Using rolator prior to admission. Patient independent with ADL and assist with iADL prior to admission.Patient receives meals on wheels. Family transport to appointments and can provide party plan sales host/hostess assist. Family transport home. This CM spoke [...] PM [facility] 07-09-2024 Note HNO ID: [id number] Author: NADIA VIDAL ? Service: Pharmacy Author Type: Quality Assurance Monitor Chassis Type: Plan of Care Filed: 07/09/2024 12:31 Note Text: Insurance investigation completed Patient has active prescription insurance: Yes - Patient's insurance is in-network with [facility] Insurance loaded into [place]: Yes Test claim was completed to verify insurance is active: Successful Any questions, please reach out to your medication accessibility lift technician. [facility] 07-09-2024 Note HNO ID: [id number] Author: GISSELL POPE RPh Service: Pharmacy Author Type: Pharmacist Type: Plan of Care Filed: 07/09/2024 12:32 Note Text: PHARMACY MEDICATION REVIEW Patient Name: Mel Castillo : 1940 The following medications were updated within the [facility] medication list: Medications ADDED to [facility] medication list Furosemide 40 mg prn swelling Medications CHANGED on [facility] medication list Lisinopril 10 mg changed to 40 mg Increased from 5 mg daily to 40 mg daily on last hospital discharge Medications REMOVED from [facility] medication list Albuterol HFA PRN Lidocaine 4% [...] Yes Completed by: Gissell Pope RPh All [facility] medications addressed by LIP Patient interested in Bedside Delivery Services or using OP Pharmacy at discharge? Yes. Discharge Pharmacy Updated Preferred outpatient pharmacy: [id number] [place] [address] [address] [facility] [phone] General Pharmacy [facility] Allergies: Percocet [Oxycodone* Itching [...] Inject 0.7 mL subcutaneously every 12 hours. yuezrpopdda-hejtcctwo-mhjsgjii (TRELEGY ELLIPTA) 100-62.5-25 mcg inhalation powder 07/06/2024 [...] (MYDRIACYL) None recorded 1 Gissell Pope [facility] 07/09/2024 [facility] 07-09-2024 Note HNO ID: [id number] Author: OTILIO GERBER MD Service: ? Author [...] Follow up with Dr. Lopez Monday 07/16 [facility] eye clinic -Can continue anticoagulation -Patient [...] NLP vision Otilio Gerber MD Ophthalmology Resident [facility] Patient seen and discussed with [...] to HTN (SBP 199/99 at presentation to [facility]) that caused angle closure and elevated IOP [...] Follow up with Dr. Lopez Monday 07/16 [facility] eye clinic -Can continue anticoagulation -Patient [...] NLP vision Otilio Gerber MD Ophthalmology Resident [facility] Patient seen and discussed with Dr. Phelan documented in this encounter [facility] 07-09-2024 Note HNO ID: [id number] Author: FELICIA LEVY MD Service: General Internal [...] vision now s/p laser iridotomy at [facility] then trasnferred to [facility] for further management. S/p multiple peripheral [...] included)... [facility] 07-08-2024 Note HNO ID: [id number] Author: FELICIA LEVY MD Service: Hospital Medicine [...] vision now s/p laser iridotomy at [facility] then trasnferred to [facility] for further management. Plan: - Ophthalmology [...] Patient Name: Mel Castillo [address] Admission Date: 07/07/2024 Length of Stay: [...] 07/07/24 1853 12/ (more content not included)... [facility] 07-07-2024 Note HNO ID: [id number] Author: JARED GILMORE MD Service: ? Author [...] Dr. Gilmore documented in this encounter [facility] 07-07-2024 Note [facility] 07-07-2024 Hospital course Narrative Discharge Summary [...] transfer AIDAN to [facility]; RN, patient, and DIL Fidel aware Hx of recent left cerebellar infarct [...] Ellipta 100-62.5-25 MCG/ACT aerosol powder Generic drug: Foymsiekxen-Wlsnpbook-Ukresg STOP taking these medications albuterol 108 (90 [...] ophthalmic solution Recommended Follow-up: Tre Lombardi MD [address] [place] [address] [address] [facility] [id number] Call in 2 month(s) Need follow up in December 2024 for aneurysm surveillence Complexity of Follow up: [] Moderate Complexity: follow up within 7-14 calendar days (90357) [x] Severe Complexity: follow up within 7 calendar days (49787) - after DC from [facility] Follow up [...] Red Henderson DO Division of Hospitalist Medicine [facility] 07/07/2024, 11:08 AM documented in this encounter [facility] 07-07-2024 Nurse Note Report called to [facility]. [facility] 07-07-2024 Nurse Note Report called to [facility]. This RN called [employer] Services to try and locate pts lost glasses from 07/05/2024. Glasses that match the description are in lost and found. Will attempt to see if glasses are a match. documented in this encounter [facility] 07-07-2024 Note Formatting of this n [...] Length of Stay (Days): 0 GMLOS: 2.3 [facility] 07-07-2024 Note Formatting of this n ote might be different from the original. Care Management Progress Note DC plan - Transfer to [facility]. Received message from RN who reports pt has a bed at the [facility] and dc orders to go today and is requesting transportation be set up AIDAN. Transportation set up through roundtrip via cot with [employer] for 10:30am. RN, pt and pt's dtr Fidel notified of dc plan and transportation time. No add'l needs for dc noted or identified at this time. Length of Stay (Days): 0 GMLOS: 2.3 [facility] 07-07-2024 Miscellaneous Notes Care Management Progress Note DC plan - Transfer to [facility]. Received message from RN who reports pt has a bed at the [facility] and dc orders to go today and is requesting transportation be set up AIDAN. Transportation set up through roundtrip via cot with [employer] for 10:30am. RN, pt and pt's dtr Fidel notified of dc plan and transportation time. No add'l needs for dc noted or identified at this time. Length of Stay (Days): 0 GMLOS: 2.3 Complicated discharge , live alone, poor vision - PT/OT now ordered- live in mobile home. Consults in progress. Need C to follow - does have pcp , [...] is working on this . With staff. [facility] she is agreeable to it if [...] - DO NOT do CPR, intubation] [_] [DNR-OCCUPATIONAL WORK EXPERIENCE TEACHER - Comfort care only] [_] DNR form [...] and/or family/surrogate. Silvio Peres MD Acute care [facility] 07/05/2024, 1:18 PM documented in this encounter [facility] 07-07-2024 History of Present illness Narrative Nutrition rescreen completed. Chart reviewed. Patient to be monitored and followed by the diet gis mapping technician. Images from the original note were not included. PHYSICAL THERAPY [facility] Initial Evaluation Name/MRN: Mel Pop ([id number]) Evaluation Date: 07/06/2024 Date of : 1940 Admission Date: 07/05/2024 4:21 AM Age: 83 y.o. Room/Bed: W3-324/W3-324 A Discharge Recommendation: Long Term Facility Equipment Needed: (tbd) Assessment IMPRESSION: The [...] kidney disease COPD (chronic obstructive pulmonary disease) ([facility]) DVT (deep venous thrombosis) ([facility]) Essential hypertension 03/07/2020 GERD (gastroesophageal reflux disease) Hiatal hernia IBS (irritable bowel syndrome) Pure hypercholesterolemia 03/07/2020 PVD (peripheral vascular disease) ([facility]) Stroke ([facility]) Past Surgical History: Past Surgical History: Procedure [...] of deep vessels of proximal lower extremity ([facility]) 04/14/2024 Peripheral arterial disease ([facility]) 04/03/2024 Immunodeficiency due to conditions classified elsewhere ([facility]) 07/27/2023 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 ([facility]) 07/27/2023 Bilateral pneumonia 06/16/2022 COVID-19 06/16/2022 Hypothyroidism 06/16/2022 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[facility]) 06/16/2022 Cellulitis 05/18/2022 Nicotine use disorder 05/18/2022 Acute venous embolism and thrombosis of deep vessels of proximal end of right lower extremity ([facility]) 04/19/2024 Atrial fibrillation, unspecified type ([facility]) 04/19/2024 Irritable bowel syndrome with diarrhea 03/07/2020 Microscopic hematuria 03/07/2020 Left retinal detachment 03/07/2020 Hyperglycemia 03/07/2020 Osteopenia of left femoral neck 03/07/2020 long term care pharmacist current use of anticoagulant therapy 03/07/2020 Seasonal allergies 03/07/2020 Chronic renal insufficiency, stage III (moderate) ([facility]) 03/07/2020 Major depression, single episode, in complete remission ([facility]) 03/07/2020 Gastroesophageal reflux disease without esophagitis 03/07/2020 Essential hypertension 03/07/2020 Pure hypercholesterolemia 03/07/2020 Overweight 03/07/2020 Psoriasis 03/07/2020 History of cerebrovascular accident 03/07/2020 Atrial fibrillation ([facility]) 03/07/2020 Chronic obstructive pulmonary disease ([facility]) 03/07/2020 Finger osteomyelitis, right ([facility]) 03/06/2020 Medical Precautions: No active isolations Proper [...] support system of friends and family Active Price Checker: Prior Level of Function Prior Level [...] of Care supervision is transferred to a [facility] Physical Therapist. Goals and/or [...] kidney disease COPD (chronic obstructive pulmonary disease) ([facility]) DVT (deep venous thrombosis) ([facility]) Essential hypertension 03/07/2020 GERD (gastroesophageal reflux disease) [...] Information Primary Emergency Contact: José Miguel Castillo/ [employer] Relation: Mother Secondary Emergency Contact: Damaris Villafana DO NOT CALL-TERMINALLY ILL Mobile Relation: Friend Red Henderson DO Division of Hospitalist Medicine [facility] documented in this encounter [facility] 07-06-2024 Nurse Note This RN called Protective Services to try and locate pts lost glasses from 07/05/2024. Glasses that match the description are in lost and found. Will attempt to see if glasses are a match. [facility] 07-06-2024 Telephone encounter Note TELEPHONE ENCOUNTER 07/06/2024 Patient with recent stroke and admitted to [facility] where she was noted to have elevated IOP with retinal detachment of the right eye by consult oil expeller. She has a history of RD in [...] OU Ryan Elizondo MD Ophthalmology Resident [facility] Work Phone: 07-06-2024 Miscellaneous Notes TELEPHONE ENCOUNTER 07/06/2024 Patient with recent stroke and admitted to [facility] where she was noted to have elevated IOP with retinal detachment of the right eye by consult oil expeller. She has a history of RD in [...] Ophthalmology Resident documented in this encounter [facility] 07-06-2024 Note Formatting of this n [...] is working on this . With staff. [facility] she is agreeable to it if goes home . [facility] 07-06-2024 Note Formatting of this n ote [...] is working on this . With staff. [facility] she is agreeable to it if goes home . [facility] 07-06-2024 Consult note Formatting of th is [...] to a retinal subspecialist at either [facility] or [facility] for repair of retinal detachment right eye (OD). Continue ophthalmic pressure lowering ophthalmic meds right eye (OD) until seen by retinal subspecialist. [facility] Phone: 07-06-2024 Consult note Formatting of th [...] to a retinal subspecialist at either [facility] or [facility] for repair of retinal detachment right [...] days. Associated Order(s): Inpatient consult to Endovascular Neurology--[facility] Inpatient consult to Endovascular Neurology--[facility] Consult performed by: Helga Naik APRN - CLEAN ROOM TECHNICIAN Consult ordered by: Wm Nunes DO Reason [...] kidney disease, COPD (chronic obstructive pulmonary disease) ([facility]), DVT (deep venous thrombosis) ([facility]), Essential hypertension (03/07/2020), GERD (gastroesophageal reflux disease), Hiatal hernia, IBS (irritable bowel syndrome), Pure hypercholesterolemia (03/07/2020), PVD (peripheral vascular disease) ([facility]), and Stroke ([facility]). She has no past medical history of Cancer ([facility]) ([facility]), Cerebral artery occlusion with cerebral infarction ([facility]), CHF (congestive heart failure) ([facility]), Diabetes mellitus ([facility]), Hemodialysis patient ([facility]) ([facility]), blood clots, or MDRO (multiple drug resistant [...] Name: Mel Pop Patient : 1940 Acct: [id number] Date of Admission: 07/05/2024 Room/Bed: 60/60 PCP: [...] Historical Provider, ergocalciferol (Vitamin D2) 1.25 MG (45798 UT) capsule Take 1.25 mg by mouth [...] 5 MG tablet Take as directed by [facility]tico[facility] (90 tablets = 90 [...] 5-40 mL, 5-40 mL, IntraVENous, PRN, Wm Nunes, DO Current Outpatient Medications: albuterol 108 (90 [...] , Rfl: ergocalciferol (Vitamin D2) 1.25 MG (39134 UT) capsule, Take 1.25 mg by mouth [...] 5 MG tablet, Take as directed by [facility] (90 tablets = 90 [...] 4:46 AM EST. Report Dictated on Workstation: [employer] Electronically Signed By: Cirilo Ray DR Electronically [...] 4:46 AM EST. Report Dictated on Workstation: [employer] Electronically Signed By: Cirilo Ray DR Electronically [...] this patient's care. documented in this encounter [facility] 07-05-2024 Consult note Formatting of th [...] drops are started. Will continue to follow. [facility] 07-05-[address] Carlson at bedside. [facility] 07-05-[address] Carlson [...] to Maritza FRAGA Emergency Department Encounter Location: [facility] EMERGENCY DEPT Patient: Mel Pop : 1940 [...] 423 ms QTC Interval 418 ms P Equality 0 degrees QRS Equality 37 degrees T Wave Equality 29 degrees ME Interval 0 ms Troponin, High Sensitivity, Serial, [...] IV. I discussed with Dr. Peres from [facility] hospitalist service who accepted the admit. Medications [...] Given 07/05/24 0517) I am not the relief docking master of record. Dr. Nunes is the relief docking master of record. Final Impression 1. Vision loss of right eye 2. Acute intractable headache, unspecified headache type DISPOSITION Observation 07/05/2024 01:21:52 PM (Please note that portions of this note may have been completed with a voice recognition program. Efforts were made to edit the dictations but occasionally words are mis-transcribed.) Jhonatan Hernandez MD [facility] Jhonatan Hernandez MD 07/05/24 1322 documented in this encounter [facility] 07-05-2024 Note Formatting of this n [...] - DO NOT do CPR, intubation] [_] [DNR-OCCUPATIONAL WORK EXPERIENCE TEACHER - Comfort care only] [_] DNR form [was/was not] signed Summary of discussion: The patient health care POA/ surrogate is the following: Fidel STAPLETON ([facility]) I answered all the patient/family questions [...] with patient and/or family/surrogate. Silvio Peres MD [facility] [employer] 07/05/2024, 1:18 PM [facility] 07-05-2024 Note Formatting of this n [...] - DO NOT do CPR, intubation] [_] [DNR-OCCUPATIONAL WORK EXPERIENCE TEACHER - Comfort care only] [_] DNR form [was/was not] signed Summary of discussion: The patient health care POA/ surrogate is the following: DAYA Fidel Castillo ([facility]) I answered all the patient/family questions [...] with patient and/or family/surrogate. 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 History Obtained From: patient and patient's [id number] HISTORY OF PRESENT ILLNESS: Mel is a [...] kidney disease COPD (chronic obstructive pulmonary disease) ([facility]) DVT (deep venous thrombosis) ([facility]) Essential hypertension 03/07/2020 GERD (gastroesophageal reflux disease) Hiatal hernia IBS (irritable bowel syndrome) Pure hypercholesterolemia 03/07/2020 PVD (peripheral vascular disease) ([facility]) Stroke ([facility]) Past Surgical History: Past Surgical History: Procedure [...] Resource Strain: Low Risk (06/20/2024) Received from [facility] Overall Financial Resource Strain (CARDIA) Difficulty of Paying Living Expenses: Not very hard Food Insecurity: No Food Insecurity (06/20/2024) Received from [facility] Hunger Vital Sign Worried About Running Out of Food in the Last Year: Never true Ran Out of Food in the Last Year: Never true Transportation Needs: No Transportation Needs (07/02/2024) Received from [facility] Transportation Source Has lack of transportation kept you from medical appointments or from getting medications?: No Has lack of transportation kept you from meetings, work, or from getting things needed for daily living?: No Physical Activity: Inactive (04/04/2024) Exercise Vital Sign Days of Exercise per Week: 0 days Minutes of Exercise per Session: 0 min Stress: No Stress Concern Present (06/19/2024) Received from [facility] Occupational [facility] - Occupational Stress Questionnaire Feeling of Stress : Not at all Social Connections: Moderately Isolated (06/20/2024) Received from [facility] Social Connection and Isolation Panel [NHANES] Frequency of Communication with Friends and Family: More than three times a week Frequency of Social Gatherings with Friends and Family: Once a week Attends Taoism Services: More than 4 times per year Active Member of Clubs or Organizations: No Attends Club or Organization Meetings: Never Marital Status: Intimate Partner Violence: Not At Risk (06/19/2024) Received from [facility] Domestic Abuse Assessment Do you feel safe in your relationships at home?: Yes Physical Abuse: Denies [facility] Domestic Abuse - Type of Abuse: Not on file [facility] Domestic Abuse - Time Frame: Not on file [facility] Domestic Abuse - Signs and Symptoms: Not on file Verbal Abuse: Denies [facility] Domestic Abuse - Reported To: Not on file Housing Stability: Low Risk (06/20/2024) Received from [facility] Housing Stability Vital Sign Unable [...] the evening. ergocalciferol (Vitamin D2) 1.25 MG (18790 UT) capsule Take 1.25 mg by mouth [...] 5 MG tablet Take as directed by [facility]tico[facility] (90 tablets = 90 [...] 07/05/2024 [facility] 1940 [id number] Exam Date/Time: 07/05/2024 11:45 Procedure: MR BRAIN [...] 07/05/2024 Patient Name: MEL POP : 1940 [facility]#: [id number] Exam Date/Time: 07/05/2024 04:36 Procedure: CT HEAD [...] 07/05/2024 [facility] 1940 [id number] Exam Date/Time: 07/05/2024 04:36 Procedure: CT HEAD [...] 07/05/2024 Patient Name: MEL POP : 1940 [facility]#: [id number] Exam Date/Time: 07/05/2024 04:36 Procedure: CT PERFUSION [...] glucose meter Result Date: 07/05/2024 Performed by: [facility], [address] [place] [address] CLIA ID: [id number] Assessment / Plan Discussed management with the [...] MD Division of Hospitalist Medicine Acute care [facility] Dictated using [employer] Version 2.4 Proof read however unrecognized voice recognition errors may have occurred [employer] Work Phone: 07-05-2024 Note [facility] [employer] [facility] 07-05-2024 History and physical note Attending History and Physical Admit Date: 07/05/2024 PCP: Jared Evans MD CHIEF COMPLAINT: Loss of vision right eye, headache/eye pain, nausea, eye swelling Reason for Admission: 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 History Obtained From: patient and patient's mirvkujr-[id number]-pja HISTORY OF PRESENT ILLNESS: Mel is a [...] Resource Strain: Low Risk (06/20/2024) Received from [facility] Overall Financial Resource Strain (CARDIA) Difficulty of Paying Living Expenses: Not very hard Food Insecurity: No Food Insecurity (06/20/2024) Received from [facility] Hunger Vital Sign Worried About Running Out of Food in the Last Year: Never true Ran Out of Food in the Last Year: Never true Transportation Needs: No Transportation Needs (07/02/2024) Received from [facility] Transportation Source Has lack of transportation kept you from medical appointments or from getting medications?: No Has lack of transportation kept you from meetings, work, or from getting things needed for daily living?: No Physical Activity: Inactive (04/04/2024) Exercise Vital Sign Days of Exercise per Week: 0 days Minutes of Exercise per Session: 0 min Stress: No Stress Concern Present (06/19/2024) Received from [facility] Occupational Health - Occupational Stress Questionnaire Feeling of Stress : Not at all Social Connections: Moderately Isolated (06/20/2024) Received from [facility] Social Connection and Isolation Panel [NHANES] Frequency of Communication with Friends and Family: More than three times a week Frequency of Social Gatherings with Friends and Family: Once a week Attends Taoism Services: More than 4 times per year Active Member of Clubs or Organizations: No Attends Club or Organization Meetings: Never Marital Status: Intimate Partner Violence: Not At Risk (06/19/2024) Received from [facility] Domestic Abuse Assessment Do you feel safe in your relationships at home?: Yes Physical Abuse: Denies [facility] Domestic Abuse - Type of Abuse: Not on file [facility] Domestic Abuse - Time Frame: Not on file [facility] Domestic Abuse - Signs and Symptoms: Not on file Verbal Abuse: Denies [facility] Domestic Abuse - Reported To: Not on file Housing Stability: Low Risk (06/20/2024) Received from [facility] Housing Stability Vital Sign Unable to [...] the evening. ergocalciferol (Vitamin D2) 1.25 MG (30504 UT) capsule Take 1.25 mg by mouth [...] 5 MG tablet Take as directed by [facility] (90 tablets = 90 [...] 07/05/2024 [facility] 1940 [id number] Exam Date/Time: 07/05/2024 11:45 Procedure: MR BRAIN [...] 07/05/2024 Patient Name: MEL POP : 1940 [facility]#: [id number] Exam Date/Time: 07/05/2024 04:36 Procedure: CT HEAD [...] 07/05/2024 [facility]: [facility] 1940 [id number] Exam Date/Time: 07/05/2024 04:36 Procedure: CT PERFUSION [...] glucose meter Result Date: 07/05/2024 Performed by: [facility], [address] [place] [address] CLIA ID: [id number] Assessment / Plan Discussed management with the [...] MD Division of Hospitalist Medicine Acute care [facility] Dictated using [employer] Medical Version 2.4 Proof read however unrecognized voice recognition errors may have occurred documented in this encounter [facility] 07-05-2024 Emergency department Note Provider notified of patient request for pain meds. [facility] 07-05-2024 Consult note Associated Order (s): [...] drops to be discontinued after 4 days. [facility] 07-05-2024 Consult note Associated Order (s): Inpatient consult to Endovascular Neurology--[facility] Inpatient consult to Endovascular Neurology--[facility] Consult performed by: Helga Naik APRN - CLEAN ROOM TECHNICIAN Consult ordered by: Wm Nunes DO Reason [...] kidney disease, COPD (chronic obstructive pulmonary disease) ([facility]), DVT (deep venous thrombosis) ([facility]), Essential hypertension (03/07/2020), GERD (gastroesophageal reflux disease), Hiatal hernia, IBS (irritable bowel syndrome), Pure hypercholesterolemia (03/07/2020), PVD (peripheral vascular disease) ([facility]), and Stroke ([facility]). She has no past medical history of Cancer ([facility]) ([facility]), Cerebral artery occlusion with cerebral infarction ([facility]), CHF (congestive heart failure) ([facility]), Diabetes mellitus ([facility]), Hemodialysis patient ([facility]) ([facility]), blood clots, or MDRO (multiple drug resistant [...] ., . Personal review of: Imaging,Labs,Old Records},.},. [facility] [employer] Work Phone: 07-05-[address] Carlson at bedside [facility] 07-05-2024 Emergency department Note Patient is returning back to room 32 at this time with Jose, Medic. [facility] 07-05-2024 Emergency department Note Pt currently at eye clinic with RADHA Hinkle for emergent eye laser procedure. [facility] 07-05-2024 Note Pt currently at eye clinic with RADHA Hinkle for emergent eye laser procedure. [facility] 07-05-2024 Emergency department Note Pt emergently going to eye clinic. Pt being transported in wheelchair with trauma float RADHA Hinkle and Maritza FRAGA Pt being transported on zoll monitor and acls kit. [facility] 07-05-2024 Emergency department Note Ophthalmology at bedside [facility] 07-05-2024 Emergency department Note Report to Maritza FRAGA [facility] 07-05-2024 Consult note Associated Order (s): IP CONSULT TO STROKE TEAM STROKE TEAM NOTE Patient Name: Mel Pop Patient : 1940 Acct: [id number] Date of Admission: 07/05/2024 Room/Bed: 60/60 PCP: [...] Pure hypercholesterolemia 03/07/2020 PVD (peripheral vascular disease) ([facility]) Stroke ([facility]) Past Surgical History: Past Surgical History: Procedure [...] Historical Provider, ergocalciferol (Vitamin D2) 1.25 MG (57704 UT) capsule Take 1.25 mg by mouth [...] 5 MG tablet Take as directed by [facility] Anticoagulation [facility] (90 tablets = 90 [...] , Rfl: ergocalciferol (Vitamin D2) 1.25 MG (07693 UT) capsule, Take 1.25 mg by mouth [...] 5 MG tablet, Take as directed by [facility] Antico[facility] (90 tablets = 90 [...] motor function: 0=Normal Total: 2 Pre-admission Modified Sapphire Score: 1 __ 0 No symptoms at [...] 4:46 AM EST. Report Dictated on Workstation: [employer] Electronically Signed By: Cirilo Ray DR Electronically [...] to be involved in this patient's care. [employer] Phone: 07-05-2024 Physician Emergency department Note Emergency Department Encounter Location: [facility] EMERGENCY DEPT Patient: Mel Pop : 1940 [...] 423 ms QTC Interval 418 ms P Equality 0 degrees QRS Equality 37 degrees T Wave Equality 29 degrees ME Interval 0 ms Troponin, High Sensitivity, Serial, [...] 4 mg IV. I discussed with Dr. Peers from [facility] hospitalist service who accepted the admit. Medications sodium chloride 0.9% (NS) flush 5-40 mL ( IntraVENous Not Given 07/05/24 2780) sodium chloride 0.9% (NS) flush 5-40 mL (has no administration in time range) sodium chloride 0.9 % infusion (has no administration in time range) sodium chloride 0.9 % infusion (50 mL/hr IntraVENous Rate/Dose Verify 07/05/24 4527) labetalol (Normodyne,Trandate) injection 10 mg (has no [...] Given 07/05/24 0517) I am not the relief docking master of record. Dr. Nunes is the relief docking master of record. Final Impression 1. Vision loss of right eye 2. Acute intractable headache, unspecified headache type DISPOSITION Observation 07/05/2024 01:21:52 PM (Please note that portions of this note may have been completed with a voice recognition program. Efforts were made to edit the dictations but occasionally words are mis-transcribed.) Jhonatan Hernandez MD [employer] Jhonatan Hernandez MD 07/05/24 1322 [facility] 06-19-2024 Note HNO ID: [id number] Author: JOSE GONZALEZ tim Service: Pharmacy Author [...] neuroendovascular for ICA aneurysm Jose Gonzalez [facility] Pager: Nora/Hailey chat 06/19/2024 1:31 PM [...] ELLIPTA 100-62.5-25 mcg inhalation powder Generic drug: kzwuqaugsru-osqgypump-bzgcofmn VITAMIN C 500 mg tablet Generic drug: [...] zinc oxide 20 % ointment [facility] 06-19-2024 Note HNO ID: [id number] Author: ROSLYN ROSE RN Service: Care Management Author Type: Registered Nurse Type: Care Mgt Progress Note Filed: 06/19/2024 13:11 Note Text: CARE MANAGEMENT DISCHARGE NOTE SERVICE DATE: June 19, 2024 SERVICE TIME: 1:10 PM Admission Date: 06/10/2024 LOS: 8 days Discharge Arrangement Discharge Arrangement: Acute Rehabilitation Facility Services Arranged Provider Name: Taylor Patiño [facility] Caregiver Assessment Caregiver is ready, willing and able to meet the patient's needs as recommended by the inter-professional team: Yes Name of Caregiver: Taylor Muir Transportation Arrangements Transportation Arrangements: Ambulance Transportation Agency and Phone #:: [facility] ( [facility] ) [phone] / [phone] Date of Trip: 06/19/24 Time of Trip: 1800 Type of Service: BLS Non-emergency Credit Administration Manager Location: [facility] Destination: [facility] Care Management Responsibility: None Handoff Communication: Handoff to: Specialty Paint Roller Covermaker Specialty Paint Roller Covermaker Name/Phone: Taylor Muir Additional Information: Patient has insurance precert and is discharging to [facility] today via [facility] cot at 6:00 PM. Spoke with patient at bedside and son José Miguel via phone who are aware and agreeable. Transfer envelope with chart. Care team aware via Epic chat. Discharge Information Row Name ED to Hosp-Admission (Current) from 06/10/2024 in [place] [address] NEURO/CARD Rehab Facility Agency [facility] SIGNATURE: Roslyn Rose RN PATIENT NAME: Mel Castillo DATE: June 19, 2024 TIME: 1:10 PM CONTACT #: [phone] [facility] 06-19-2024 Note HNO ID: [id number] Author: DON EDWARDS DO Service: Hospital Medicine Author Type: Physician Type: Progress Notes Filed: 06/19/2024 12:53 Note Text: DEPARTMENT OF HOSPITAL MEDICINE PROGRESS NOTE SERVICE DATE: 06/19/2024 SERVICE TIME: 10:10 AM Hospital Medicine/Primary Attending: Don Edwards DO NIGHT AND WEEKEND COVERAGE: [place] COVERAGE: From 7am - 7pm, please call [phone] After 7pm, please call cross cover pager #[phone] Subjective INTERVAL HPI: Pt seen and examined. [...] 22 Gauge -- days Peripheral 06/12/24 0427 [facility] Short Right Forearm 20 Gauge 7 [...] -- 06/11/24 0730 vte current anticoag therapy ([place] 06/11/24 0730 activity - mobilize patient ([place] VTE Prophylaxis: VTE prophylaxis appropriate Disposition: Acute Rehab Plan of care discussed with: Provider, RN, Patient SIGNATURE: Don Edwards DO PATIENT NAME: Mel Castillo DATE: June 19, 2024 TIME: 10:10 AM etx [id number] [facility] 06-18-2024 Note HNO ID: [id number] Author: ANABEL VEGA ? Service: Care Management Author Type: ? Type: Care Mgt Progress Note Filed: 06/18/2024 17:18 Note Text: [facility] PRECERT NOTE [employer] MEDICARE PPO approved Inpatient Rehab Facility for [facility]. Precert approved for dates: - 06/26/2024. For any additional questions regarding approvals, transport or care management needs, please contact the CM assigned to this patient in the Treatment Team. SIGNATURE: Anabel Khalil Page DATE: June 18, 2024 TIME: 5:17 PM [facility] 06-18-2024 Note HNO ID: [id number] Author: MARK MINOR DO Service: Hospital Medicine Author Type: Physician Type: Progress Notes Filed: 06/18/2024 16:17 Note Text: DEPARTMENT OF HOSPITAL MEDICINE PROGRESS NOTE SERVICE DATE: 06/18/2024 SERVICE TIME: 4:06 PM Hospital Medicine/Primary Attending: Mark Minor DO NIGHT AND WEEKEND COVERAGE: After 7pm please page [phone] SUBJECTIVE: Patient seen examined at bedside. No [...] atrial (more content not included)... [facility] 06-18-2024 Note HNO ID: [id number] Author: ROSLYN ROSE RN Service: Care Management Author Type: Registered Nurse Type: Care Mgt Progress Note Filed: 06/18/2024 12:32 Note Text: CARE MANAGEMENT PROGRESS NOTE SERVICE DATE: 06/18/2024 SERVICE TIME: 9:01 AM LOS: 7 days Chart reviewed. Insurance [facility]ert is pending [facility]. Will need precert and cot transport. CM to follow for transitional care planning. ADDENDUM at 10:20 AM- Spoke with patient at bedside and provided update on pending precert. Received message from [facility] that insurance is requesting updated PT/OT evals and notified therapy. SIGNATURE: Roslyn Rose RN PATIENT NAME: Mel Castillo DATE: June 18, 2024 TIME: 9:01 AM PAGER/CONTACT #: [phone] [facility] 06-17-2024 Note HNO ID: [id number] Author: DON EDWARDS DO Service: Hospital Medicine Author Type: Physician Type: Progress Notes Filed: 06/17/2024 13:52 Note Text: DEPARTMENT OF HOSPITAL MEDICINE PROGRESS NOTE SERVICE DATE: 06/17/2024 SERVICE TIME: 11:15 AM Hospital Medicine/Primary Attending: Don Edwards DO NIGHT AND WEEKEND COVERAGE: [place] COVERAGE: From 7am - 7pm, please call [phone] After 7pm, please call cross cover pager #[phone] Subjective INTERVAL HPI: Pt seen and examined. [...] 22 Gauge -- days Peripheral 06/12/24 042 [facility] Short Right Forearm 20 Gauge 5 [...] eliquis. She was seen by therapy and residential facility was recommended. Acute embolic stroke with [...] -- 06/11/24 0730 vte [place]ag therapy [place]) 06/11/24 0730 activity - mobilize patient ([place]) VTE Prophylaxis: VTE prophylaxis appropriate Disposition: Acute Rehab Plan of care discussed with: Provider, RN, Patient SIGNATURE: Don Edwards DO PATIENT NAME: Mel Castillo DATE: June 17, 2024 TIME: 11:15 AM etx [id number] [facility] 06-16-2024 Note HNO ID: [id number] Author: DON EDWARDS DO Service: Hospital Medicine Author Type: Physician Type: Progress Notes Filed: 06/16/2024 13:06 Note Text: DEPARTMENT OF HOSPITAL MEDICINE PROGRESS NOTE SERVICE DATE: 06/16/2024 SERVICE TIME: 11:00 AM Hospital Medicine/Primary Attending: Don Edwards DO NIGHT AND WEEKEND COVERAGE: [place] COVERAGE: From 7am - 7pm, please call [phone] After 7pm, please call cross cover pager #[phone] Subjective INTERVAL HPI: Pt seen and examined. [...] 22 Gauge -- days Peripheral 06/12/24 0427 [facility] Short Right Forearm 20 Gauge 4 days Drain Duration Indwelling Urinary Catheter 06/11/24 1535 [facility] Ceballos 16 Fr 4 days Reviewed [...] -- 06/11/24 0730 vte current [place]ag therapy [place] 06/11/24 0730 activity - mobilize [place] ([place]) VTE Prophylaxis: VTE prophylaxis appropriate Disposition: Acute Rehab Plan of care discussed with: Provider, RN, Patient SIGNATURE: Don Edwards DO PATIENT NAME: Mel Castillo DATE: June 16, 2024 TIME: 11:00 AM etx [id number] [facility] 06-15-2024 Note HNO ID: [id number] Author: ERA TELLES MD Service: Hospital Medicine [...] 2024 TIME: 2:40 PM PAGER: [facility] 06-15-2024 Note HNO ID: [id number] Author: ARIANA MERCER .CLEAN ROOM TECHNICIAN Service: Urology Author Type: Nurse Practitioner Type: Plan of Care Filed: 06/15/2024 12:16 Note Text: Urology Plan of Care Note RN reached out asking about a void trial today. Notes pt has bloody urine. Pt seen at bedside. Pt eating lunch. Vanessa urine in tubing at this time. Will place PRN irrigation orders if urine is bloody again. Page urology resident clinical nutrition manager if urine is grade 4 or [...] Ariana Mercer APRN 06/15/2024 12:11 PM Page clinical nutrition manager resident with questions [facility] 06-15-2024 Note HNO ID: [id number] Author: ROSLYN ROSE RN Service: Care Management Author Type: Registered Nurse Type: Care Mgt Progress Note Filed: 06/15/2024 09:38 Note Text: CARE MANAGEMENT PROGRESS NOTE SERVICE DATE: 06/15/2024 SERVICE TIME: 9:36 AM LOS: 4 days Chart reviewed. Insurance precert is pending for [facility]. Will need precert and cot transport. Will place transfer envelope with chart that has signed portable DNR form attached. CM to follow for transitional care planning. SIGNATURE: Roslyn Rose RN PATIENT NAME: Mel Castillo DATE: June 15, 2024 TIME: 9:36 AM PAGER/CONTACT #: [phone] [facility] 06-14-2024 Note HNO ID: [id number] Author: JENNIFER FERNANDEZ, RADHA Service: Nursing Author Type: Registered Nurse Type: Nursing Progress Note Filed: 06/14/2024 17:35 Note Text: 1610: paged urology for voiding trial awaiting response [facility] 06-14-2024 Note HNO ID: [id number] Author: ERA TELLES MD Service: Hospital Medicine [...] 2024 TIME: 2:47 PM PAGER: [facility] 06-13-2024 Note HNO ID: [id number] Author: EDIE CASTAÑEDA MD Service: Hospital Medicine Author Type: Physician Type: Progress Notes Filed: 06/13/2024 14:18 Note Text: DEPARTMENT OF HOSPITAL MEDICINE Hospital Medicine/Primary Attending: Edie Castañeda MD NIGHT AND WEEKEND COVERAGE: After 7pm please page [phone] MEDICATIONS: Current Facility-Administered Medications Medication Dose Route [...] -- -- 1.2 1.3 BMP: Recent Labs 06/13/2413606/12/2435006/10/24 233 GLUC 95 109* 157* NA 136 [...] interatrial septum. Patient sees Dr. Padilla at [facility]. Cardiology saw patient in hospital, recommended Lovenox at discharge for lifelong. 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 Continue heparin drip. Will transition to therapeutic lovenox tonight (discussed patel and affordability with patient, lin (more content not included)... [facility] 06-13-2024 Note HNO ID: [id number] Author: CARLYLE GUZMÁN RN Service: Care Management [...] 13, 2024 TIME: 12:54 PM PAGER/CONTACT #: [phone] [facility] 06-12-2024 Note HNO ID: [id number] Author: SHARONA MCDERMOTT MD Service: Hospital Medicine Author Type: Physician Type: Progress Notes Filed: 06/12/2024 17:08 Note Text: DEPARTMENT OF HOSPITAL MEDICINE Hospital Medicine/Primary Attending: Sharona Mcdermott MD NIGHT AND WEEKEND COVERAGE: After 7pm please page [phone] Saw patient at bedside with friend visiting. [...] data: CBC: Recent Labs 06/12/24 03506/11/24 1353 06/10/24 2330 WBC 5.17 7.45 5.67 HB 10.6* 11.5 11.4* HCT 34.6* 37.6 37.5 PLT 314 329 330 MCV 85.6 87.0 86.2 RDWCV 15.6* 15.6* 15.6* NEUTP 57.4 72.9 84.2 ABSNEUT 2.97 5.43 4.78 LYMPHP 31.9 16.9 10.8 MONOP 8.9 9.1 3.7 EODINP 1.0 0.3 0.2 COAG: Recent Labs 06/12/24 1156 06/12/24 0450 06/12/24 03506/11/24202106/11/24 1353 06/10/24 2330 APTT 79.0* 123.9* 117.3* 28.2 28.9 -- [...] MG 2.3 -- HEPATIC: Recent Labs 06/12/24 03506/10/24 [...] interatrial septum. Patient sees Dr. Padilla at [facility]. Cardiology saw patient in hospital, recommended Lovenox [...] Not (more content not included)... [facility] 06-12-2024 Note HNO ID: [id number] Author: DEOBRAH PEACE RN Service: Care Management Author Type: Registered Nurse Type: Care Mgt Progress Note Filed: 06/12/2024 16:10 Note Text: CARE MANAGEMENT PROGRESS NOTE SERVICE DATE: 06/12/2024 SERVICE TIME: 4:09 PM LOS: 1 day [place] of Choice Given: Yes Level of Care Discussed: Inpatient Rehab Facility Financial Disclosure Provided: Yes Provider List: Rehab Facility Provider list within the patient's requested geographic area shared with the patient/family: Yes within: 15 miles of zip code: [address] Quality and resource use metrics shared with the patient that are relevant to the patient's goals of care and treatment preferences:: Yes Spoke with pt about pt/ot recs for acute rehab, pt agreeable to list , [facility] foc but pt would like to discuss acute rehab with her ; referral sent to [facility] SIGNATURE: Deborah Peace RN PATIENT NAME: Mel Castillo DATE: June 12, 2024 TIME: 4:09 PM PAGER/CONTACT #: [phone] [facility] 06-12-2024 Note HNO ID: [id number] Author: ANDREEA KING LSW Service: Care Management Author Type: Obstetrics Tech Type: Care Mgt Progress Note Filed: 06/12/2024 [...] 12, 2024 TIME: 3:20 PM PAGER/CONTACT #: [phone] [facility] 06-11-2024 Note HNO ID: [id number] Author: CARLYLE GUZMÁN RN Service: Care Management [...] Home Advance Directives Current Advance Directive: None Machine Design Checker Attempted to Assist with AD Completion: [...] General wellness, Be able to go home [place] of Choice Explained: [place] of Choice Given: No Reason Not Given: [...] family who said she was mostly [place] and does not endorse any skilled needs at this time. +PCP, +DME, +RX coverage, family to provide DC transportation. Will to continue to follow for transitional care planning. SIGNATURE: Carlyle Guzmán RN PATIENT NAME: Mel Castillo DATE: June 11, 2024 TIME: 3:41 PM CONTACT #: [phone] [facility] 06-11-2024 Note Spoke with Melany Evans's office and she stated that patient is scheduled in their office tomorrow, 06/12 for INR check. I faxed her out last progress note. I will inactivate patient from our service. [facility] 05-21-2024 History of Present illness Narrative INR reported on by Christin with [facility]. Christin can be reached at [phone] with questions. Images from the original note were not included. [facility] ([facility] Anticoagulation Clinic [address] [place] [address], [address], [place] [address] Subjective TYSON Mel (1940) had INR completed [...] PharmD, BCACP, CACP documented in this encounter [facility] 05-09-2024 History of Present illness Narrative Graciela from [facility] called in results. Images from the original note were not included. [facility] ([facility]tico[facility] [address] [place] [address], [address], [place] [address] Subjective HPI Mel (1940) had INR completed [...] positive findings Mel was instructed to notify [facility] of any unusual bruising or active/uncontrollable bleeding, medication changes within 24 hours, missed doses, dietary changes, illnesses or hospitalizations, and upcoming surgeries. Patient given verbal instructions. Patient expressed understanding utilizing the teach back method. Time spent 10 Minutes JOSE ANGEL Perez, PharmD, BCPS documented in this encounter [facility] 05-01-2024 History of Present illness Narrative [facility]- [phone] Images from the original note were not included. [facility] ([facility]) Anticoagulation Clinic [address] [place] [address], [address], [place] [address] Subjective TYSON Choi (1940) had INR completed [...] 5 mg daily Next INR Check: 05/08/2024 [facility] Patient educated on the following: dietary/lifestyle considerations and Vitamin K content and consistency Patient care coordination completed: N/A Patient given verbal instructions. Patient expressed understanding utilizing the teach back method. Time spent 10 Minutes Won Tipton RN staffed with Nidia TolbertD, BCACP, CACP documented in this encounter [facility] 04-27-2024 Telephone encounter Note Pt requested refill on warfarin 5mg. Sent to [facility]. Receipt confirmed by pharmacy. [facility] 04-27-2024 Miscellaneous Notes Pt requested refill on warfarin 5mg. Sent to [facility]. Receipt confirmed by pharmacy. documented in this encounter [facility] 04-25-2024 History of Present illness Narrative [...] any significant pain. She is following with [facility] clinic for Warfarin, switched from Eliquis. [...] 500 mg in the evening. 06/28/22 Historical ProviderMD furosemide (Lasix) 40 MG tablet TAKE 1 [...] tablet (5mg) on 04/15 Follow up with [facility] pharmacy for further dosing 04/13/24 Jordin [...] min Stress: No Stress Concern Present (04/04/2024) [employer] [facility] - Occupational Stress Questionnaire Feeling of Stress : Not at all Social Connections: Moderately Isolated (04/04/2024) Social Connection and Isolation Panel [NHANES] Frequency of Communication with Friends and Family: More than three times a week Frequency of Social Gatherings with Friends and Family: More than three times a week Attends Taoism Services: 1 to 4 times per year [...] thrombectomy -Recovering well -Recommend continuing warfarin per [facility] clinic -Continue to elevate as needed. [...] (around 07/26/2024). . documented in this encounter [facility] 04-19-2024 History of Present illness Narrative Graciela with [facility] reports INR on vm Graciela can be reached at [phone] with any questions. Images from the original note were not included. [facility] ([facility] Anticoagulation Clinic [address], [address], [place] [address] Megan Choi (1940) had INR completed by [...] Perez, PharmD, BCPS documented in this encounter [facility] 04-14-2024 History of Present illness Narrative Placed new order for POCT INR, [facility] had not received. documented in this encounter [facility] 04-14-2024 Miscellaneous Notes Addended by: PATTY DUGGAN on: 04/16/2024 07:01 AM Modules accepted: Orders Addended by: HARMONY GREY on: 04/16/2024 08:41 AM Modules accepted: Orders documented in this encounter [facility] 04-14-2024 Note Addended by: PATTY DUGGAN on: 04/16/2024 07:01 AM Modules accepted: Orders [facility] 04-14-2024 Note Addended by: HARMONY GREY on: 04/16/2024 08:41 AM Modules accepted: Orders [facility] 04-14-2024 Note Addended by: PATTY DUGGAN on: 04/16/2024 07:01 AM Modules accepted: Orders [facility] 04-14-2024 Note Addended by: HARMONY GREY on: 04/16/2024 08:41 AM Modules accepted: Orders [facility] 04-14-2024 Note Addended by: PATTY DUGGAN on: 04/16/2024 07:01 AM Modules accepted: [facility] 04-14-2024 Note Addended by: HARMONY GREY on: 04/16/2024 08:41 AM Modules accepted: [facility] 04-13-2024 Nurse Note AVS explained. Discharged patient on stable condition. [facility] 04-13-2024 Nurse Note AVS explained. Discharged patient on stable condition. Instructed patient on warfarin dosing, she will take 7.5mg tomorrow, and 5mg Tuesday, and then we will check INR with home care on Tuesday as instructed. NO changes to heparin infusion at this time. documented in this encounter [facility] 04-13-2024 Nurse Note Instructed patient on warfarin dosing, she will take 7.5mg tomorrow, and 5mg Tuesday, and then we will check INR with home care on Tuesday as instructed. [facility] 04-13-2024 Note Formatting of this n ote might be different from the original. Phone conversation with the patient at their request from the [facility] regarding her established home care. Patient was wondering what services were being provided and what expectations to have for HHC. I explained her current ordered services and she stated she understood. Patient then asked if she could have meals delivered. I explained I would reach out to her psych social worker here at the hospital for further guidance on resources when she gets home. Secure chat sent to [facility] [place] regarding this. [facility] 04-13-2024 Note Formatting of this n ote might be different from the original. Phone conversation with the patient at their request from the [facility] regarding her established home care. Patient was wondering what services were being provided and what expectations to have for HHC. I explained her current ordered services and she stated she understood. Patient then asked if she could have meals delivered. I explained I would reach out to her psych social worker here at the hospital for further guidance on resources when she gets home. Secure chat sent to [facility] [place] regarding this. [facility] 04-13-2024 Miscellaneous Notes Phone conversation with the patient at their request from the [facility] regarding her established home care. Patient was wondering what services were being provided and what expectations to have for HHC. I explained her current ordered services and she stated she understood. Patient then asked if she could have meals delivered. I explained I would reach out to her psych social worker here at the hospital for further guidance on resources when she gets home. Secure chat sent to [facility] regarding this. Images from the original note were not included. Care Management Progress Note INR 2.3 today. Hep drip continued, plan to DC to [facility] today. Plan to have PT seen patient today per her request. Patient is active with [facility]. Await treatment plan and clinical progress. food service manager will continue to follow for transitional [...] discharge. Await treatment plan and clinical progress. food service manager will continue to follow for transitional care needs for discharge planning. Discharge Milestones and Delays Expected date/time: 04/13/2024 Expected discharge disposition: Home Health Services Discharge Milestones Place discharge order Complete med reconciliation Case mgmt discharge readiness Clinical Stability Diagnostic Workup Die Lay Out Worker Recommendations Facility Choice Selection Imaging Results PT [...] discharge. Await treatment plan and clinical progress. food service manager will continue to follow for transitional [...] discharge. Await treatment plan and clinical progress. food service manager will continue to follow for transitional care needs for discharge planning. Discharge Milestones and Delays Expected date/time: 04/11/2024 Expected discharge disposition: Home or Self Care Discharge Milestones Place discharge order Complete med reconciliation Case mgmt discharge readiness Clinical Stability Diagnostic Workup Die Lay Out Worker Recommendations Facility Choice Selection Imaging Results Patient Education Complete Expected Discharge History Expected Date/Time Set By Reviewed At 04/11/2024 Cathi Avila RN 04/10/2024 8:41 AM hep gtt- transitioning to coumadin" 04/10/2024 Virginia Rehman RN 04/09/2024 8:13 AM 04/08/2024 Virginia Rehman RN 04/06/2024 8:13 AM hep gtt, poss thrombectomy 04/07/2024 Virginia Remhan RN 04/05/2024 8:03 AM hep gtt, poss thrombectomy tomorrow" 04/06/2024 Virginia Rehman RN 04/04/2024 8:48 AM hep gtt, oliva lower US, vasc consult" 04/06/2024 Bernie Cutler APRN - CLEAN ROOM TECHNICIAN 04/04/2024 4:04 AM 04/06/2024 Bernie Cutler APRN - CLEAN ROOM TECHNICIAN 04/03/2024 11:17 PM Length of Stay (Days): 7 GMLOS: 4 Images from the original note were not included. Care Management Progress Note Remains on heparin gtt while transitioning to coumadin. Consult Hemology. Pt active with [facility]- will continue services at discharge. Await treatment plan and clinical progress. food service manager will continue to follow for transitional care needs for discharge planning. Discharge Milestones and Delays Expected date/time: 04/10/2024 Expected discharge disposition: Home or Self Care Discharge Milestones Place discharge order Complete med reconciliation Case mgmt discharge readiness Clinical Stability Diagnostic Workup Die Lay Out Worker Recommendations Facility Choice Selection Imaging Results Patient [...] vasc consult" 04/06/2024 Bernie Cutler APRN - CLEAN ROOM TECHNICIAN 04/04/2024 4:04 AM 04/06/2024 Bernie Cutler APRN - CLEAN ROOM TECHNICIAN 04/03/2024 11:17 PM Length of Stay (Days): [...] vasc consult" 04/06/2024 Bernie Cutler APRN - CLEAN ROOM TECHNICIAN 04/04/2024 4:04 AM 04/06/2024 Bernie Cutler APRN - CLEAN ROOM TECHNICIAN 04/03/2024 11:17 PM Length of Stay (Days): 3 GMLOS: 3.1 Patient report called to 4N RN and denies any further questions. Patient resting comfortably and no signs of distress. Per resident patient to lay flat for 2 hours and restart heparin GTT at 1215. Transport notified. SW assisted patient with completion of Health Care Power of Glass Products Inspector. One copy placed in patient chart, one copy sent to medical records and two copies given to patient. Requested by patient, while at bedside this SW spoke to patient's son via patients phone to explain that HCPOA was being completed by patient. Patients son José Miguel Castillo ([phone]) agreed to be this patients agent on [...] technique was used to place a 5 [place] Islander sheath. A [place] wire was able to be advanced in the inferior vena cava without difficulty. The 5 Solomon Islander sheath was then upsized to a 16 Solomon Islander sheath and the penumbra flash suction thrombectomy device was prepared per technical support coordinator's instructions. The patient was also given 5000 units of heparin for systemic anticoagulation at this time. The Penumbra device was then inserted through the 16 Solomon Islander sheath and a suction thrombectomy was performed [...] device was removed as was the 16 Solomon Islander sheath and an 0 silk suture was [...] Blankenship MD Vascular Surgery Date: 04/06/2024 Location: [facility] OR Name: Mel Pop, : 1940, Diagnosis Pre-op Diagnosis * Right leg DVT (HCC) [I82.401] Post-op Diagnosis * Right leg DVT (HCC) [I82.401] Procedures RIGHT LOWER EXTREMITY VENOUS MECHANICAL THROMBECTOMY 20080 - ME PRQ TRANSLUMINAL MECHANICAL THROMBECTOMY VEIN Surgeons * Kristyn Blankenship - Primary Procedure Summary Anesthesia: General ASA: III Estimated Blood Loss: 300 mL Drains: * None in log * Staff: Percussion Teacher: Negrita Elizabeth RN; Amira Burton RN Scrub [...] from home alone- indep and active with [facility]- will return. Discharge Milestones and Delays Expected [...] Limits Permission given to speak with patient auto service representative/caregiver as indicated: Confirmation of Payer with patient/family: Yes Payer Name: nadege [place]: No Confirmation of Primary Care Physician: Confirmed [...] home alone and indep. Pt active with [facility]- liaison following for continued services. Pt uses walker/cane at baseline. Pt has insurance, PCP and able to obtain meds. Pt's friends help with transportation. No needs antic at discharge. Virginia Rehman RN Start PACC Note Home Health Referral Educated patient on Home Care and services available. Patient offered choice of available HHC and agreeable to SN/PT services with [facility]. Care [...] is noted as yes - consider a POTLINE MONITOR evaluation once the patient returns home. START PATIENT REGISTRATION INFORMATION Order Information Order Signing Physician: Robert Vigil MD Service Ordered RN ?: Yes Service Ordered PT ?: Yes Service Ordered OT ?: No Service Ordered ST ?: No Service Ordered POTLINE MONITOR?:No Service Ordered GLASS INSPECTOR?: No Following Physician: Jared Evans MD Following Physician Overseeing Physician: Jared Evans MD (Required for Residents only) Agreeable to Follow? Yes Date/Time of Call 04/04/24 11:36 AM, Spoke with: Patient is a DEB. Care Coordination Same Day SOC?: No Primary Care Physician: Jared Evans MD Primary Care Physician Primary Care Physician [address] [place] [address] Visit Instructions: N/A Service Discharge Location Type: Home with Home Care Service Facility Name: N/A Service Floor Facility: N/A Service Room No: N/A Demographics Patient Last Name: Kiesha Patient First Name: Mel Language/Communication Barrier: none [facility] [address] [address] Service City: [facility] ST: [place] Service ZIP: [address] Service Other phone numbers: Telephone Information: Emergency [...] Caregiver Phone Number: na Caregiver Notes: N/A NanoNord-RTB-Media List No END PATIENT REGISTRATION INFORMATION Pt [...] intervention. Discharge Date: pending Referral Source-PACC: (Hospital/Unit): [facility] / N4-461/N4-461 B End PACC Note The patient is Moderately Stable - Low risk of patient condition declining or worsening The patient's goals for the shift include safety The clinical goals for the shift include therapeutic aptt Patient is currently active with [facility]. The patients current certification period will on 05/18/24. The patient is currently receiving PT services through the agency. Medical Billing Specialist to continue to follow. ADVANCED CARE PLANNING Mel Pop : 1940 Primary Care Physician: Jared Evans MD The patient and/or family/surrogate voluntarily agreed to participate in ACP services. Patient s cognitive capacity: intact Code Status: [ ] [FULL CODE - Continue all advanced life support: CPR,intubation,invasive procedures] [X] [DNR-CCA - DO NOT do CPR, intubation] [_] [DNR-OCCUPATIONAL WORK EXPERIENCE TEACHER - Comfort care only] [_] DNR form [...] and/or family/surrogate. Pratibha Avelar DO Acute care [facility] 04/04/2024, 5:40 AM The patient is Moderately Stable - Low risk of patient condition declining or worsening The patient's goals for the shift include met The clinical goals for the shift include met Over the shift, the patient did not make progress toward the following goals. Barriers to progression include . Recommendations to address these barriers include . documented in this encounter [facility] 04-13-2024 Note [facility] 04-13-2024 Hospital course Narrative Discharge Summary Mel Pop : 1940 ADMIT DATE: 04/03/2024 DISCHARGE DATE: 04/13/2024 PRIMARY CARE PHYSICIAN: Jared Evans VISIT STATUS: Admission CODE STATUS: DNR-CCA DISCHARGE DIAGNOSES: Principal Problem: Peripheral arterial disease (HCC) Bilateral lower extremity DVTs RLE thrombectomy HOSPITAL COURSE: 83-year-old woman with history of A-fib on Eliquis, tobacco use, hypertension, hyperlipidemia, asthma, hiatal hernia, GERD presented to [facility] on 04/03 with right leg pain, numbness, tingling causing difficulty ambulating. CTA of lower extremity showed severe atherosclerotic disease with bilateral superficial femoral artery occlusion and transferred to [facility]. She underwent venous thrombectomy with vascular surgery and was initiated on warfarin bridging with heparin. [facility] followed and managed bridging anticoagulation. Pt reported feeling improvement from day to day. Though she was concerned that being stuck in the hospital will debilitate her.Her INR was therapeutic on 04/13. [facility] recommended transition to Warfarin alternating 5mg/7.5mg dosing and close OP follow up for INR check. SIGNIFICANT DIAGNOSTIC STUDIES: BLE Duplex CONSULTANTS: Vascular surgery Pharmacy RECOMMENDED NEXT STEPS: Follow up with [facility] clinic and vascular DISCHARGE MEDICATIONS: Medication [...] tablet (5mg) on 04/15 Follow up with [facility] pharmacy for further dosing CONTINUE taking these medications albuterol 108 (90 Base) MCG/ACT inhaler ascorbic acid 500 MG tablet Commonly known as: Vitamin C lisinopril 5 MG tablet pantoprazole 40 MG EC tablet Commonly known as: ProtoNix Trelegy Ellipta 100-62.5-25 MCG/ACT aerosol powder Generic drug: Scvbassjfwn-Johsvrszo-Vsrddu STOP taking these medications Eliquis 5 MG tablet Generic drug: apixaban Where to Get Your Medications These medications were sent to [facility] [address] [place] [id number] Hours: Tuesday to Tuesday 10 am to 6 pm oxyCODONE 5 MG immediate release tablet warfarin 5 MG tablet DIET: Adult diet Regular ACTIVITY: No restriction. COMPLEXITY OF FOLLOW UP: [x] Moderate Complexity: follow up within 7-14 calendar days (65228) [] Severe Complexity: follow up within 7 calendar days (51363) FOLLOW UP TESTING, PENDING RESULTS OR REFERRALS AT TRANSITIONAL CARE VISIT: [] Yes [x] No PENDING STUDIES: none DISPOSITION: Home with Home Health Care FACILITY/HOME CARE AGENCY NAME: [facility] Follow up with Kristyn Blankenship MD [address] [place] [address] [address] [place] [id number] Schedule an appointment as soon as possible for a visit [facility] clinic for INR check next week [...] 04/13/2024, 2:20 PM documented in this encounter [facility] 04-13-2024 History of Present illness Narrative Images from the original note were not included. PHYSICAL THERAPY [facility] Treatment Note Name/MRN: Mel Pop ([id number]) Date of : 1940 Age: 83 y.o. [...] 1045 Minutes 13 (Gait) Christin Gu PT [facility] Anticoagulation Management Service ([facility]) Inpatient Warfarin Consult HPI: Mel Pop is a 83 y.o. female admitted on 04/03/2024 for Peripheral arterial disease (HCC). Past Medical History: Diagnosis Date Asthma Essential hypertension 03/07/2020 GERD (gastroesophageal reflux disease) Hiatal hernia Pure hypercholesterolemia 03/07/2020 Patient is newly referred to the [facility] clinic for warfarin management. Pt was referred by Anthony Yee APRN - CLEAN ROOM TECHNICIAN. Pt is on warfarin for DVT and [...] PharmD [facility] Consult Service is available daily [phone] via [employer] Secure Chat. If no response, please page [phone]. Hospitalist Progress Note 04/13/2024 Subjective: Admit Date: 04/03/2024 PCP: Jared Evans MD Room#: N4-461/N4-461 B BRIEF HOSPITAL COURSE: 83-year-old woman with history of A-fib on Eliquis, tobacco use, hypertension, hyperlipidemia, asthma, hiatal hernia, GERD presented to [facility] on 04/03 with right leg pain, numbness, tingling causing difficulty ambulating. CTA of lower extremity showed severe atherosclerotic disease with bilateral superficial femoral artery occlusion and transferred to [facility]. She underwent venous thrombectomy with vascular surgery [...] warfarin and close OP follow up with [facility]. Case and plan discussed with patient and [...] person, place, and time. Medications: Scheduled PRN Smusoenkidp-Sdleoumzb-Isvkty, 1 puff, Inhalation, Daily influenza, 0.5 mL, [...] [facility] [employer] [facility] [employer] Hospitalist Progress Note 04/12/2024 Subjective: Admit Date: 04/03/2024 PCP: Jared Evans MD Room#: N4-461/N4-461 B BRIEF HOSPITAL COURSE: 83-year-old woman with history of A-fib on Eliquis, tobacco use, hypertension, hyperlipidemia, asthma, hiatal hernia, GERD presented to [facility] on 04/03 with right leg pain, numbness, tingling causing difficulty ambulating. CTA of lower extremity showed severe atherosclerotic disease with bilateral superficial femoral artery occlusion and transferred to [facility]. She underwent venous thrombectomy with vascular surgery [...] PLT 238 244 307 BMP: Recent Labs 09/2460004/11/24 0027 04/12/24 05 NA 136 134* 135 K 3.8 4.0 [...] person, place, and time. Medications: Scheduled PRN Gzswiqhmlal-Arybcmumu-Rvuvhv, 1 puff, Inhalation, Daily influenza, 0.5 mL, [...] Jordin Roldan MD Division of Hospitalist Medicine [facility] Anticoagulation Management Service ([facility]) Inpatient Warfarin Consult HPI: Mel Pop is a 83 y.o. female admitted on 04/03/2024 for Peripheral arterial disease (HCC). Past Medical History: Diagnosis Date Asthma Essential hypertension 03/07/2020 GERD (gastroesophageal reflux disease) Hiatal hernia Pure hypercholesterolemia 03/07/2020 Patient is newly referred to the [facility] clinic for warfarin management. Pt was [...] PharmD [facility] Consult Service is available daily [phone] via [employer] Secure Chat. If no response, please page [phone]. Images from the original note were not included. OCCUPATIONAL THERAPY [facility] Initial Evaluation Name/MRN: Mel Pop ([id number]) Evaluation Date: 04/11/2024 Date of : 1940 Admission Date: 04/03/2024 5:47 PM Age: 83 y.o. 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 Cellulitis 05/18/2022 Nicotine use disorder 05/18/2022 Irritable bowel syndrome with diarrhea 03/07/2020 Microscopic hematuria 03/07/2020 Left retinal detachment 03/07/2020 Hyperglycemia 03/07/2020 Osteopenia of left femoral neck 03/07/2020 [facility] current use of anticoagulant therapy 03/07/2020 Seasonal allergies 03/07/2020 Chronic renal insufficiency, stage III (moderate) ([facility]) 03/07/2020 Major depression, single episode, in complete remission ([facility]) 03/07/2020 Gastroesophageal reflux disease without esophagitis 03/07/2020 Essential hypertension 03/07/2020 Pure hypercholesterolemia 03/07/2020 Overweight 03/07/2020 Psoriasis 03/07/2020 History of cerebrovascular accident 03/07/2020 Atrial fibrillation ([facility]) 03/07/2020 Chronic obstructive pulmonary disease ([facility]) 03/07/2020 Finger osteomyelitis, right ([facility]) 03/06/2020 Medical Precautions: No active isolations Proper [...] Responsibilities: Independent Receives Help From: None Active Price Checker: Yes Prior Level of Function ADL [...] of Care supervision is transferred to a [facility] Therapy Services Occupational Therapist. Goals and/or treatment plan was established in collaboration with patient/family/other representatives. Hospitalist Progress Note 04/11/2024 Subjective: Admit Date: 04/03/2024 PCP: Jared Evans MD Room#: N4-461/N4-461 B BRIEF HOSPITAL COURSE: 83-year-old woman with history of A-fib on Eliquis, tobacco use, hypertension, hyperlipidemia, asthma, hiatal hernia, GERD presented to [facility] on 04/03 with right leg pain, numbness, tingling causing difficulty ambulating. CTA of lower extremity showed severe atherosclerotic disease with bilateral superficial femoral artery occlusion and transferred to [facility]. She underwent venous thrombectomy with vascular surgery [...] person, place, and time. Medications: Scheduled PRN Nyliasvyzde-Oxcxdeddn-Unygbe, 1 puff, Inhalation, Daily influenza, 0.5 mL, [...] Contact Information Primary Emergency Contact: Damaris Villafana Relation: Friend Secondary Emergency Contact: José Miguel Castillo/ Fidel Mobile Relation: Child Jordin Roldan MD Division of Hospitalist Medicine [facility] Images from the original note were not included. PHYSICAL THERAPY [facility] Initial Evaluation Name/MRN: Mel Pop ([id number]) Evaluation Date: 04/11/2024 Date of : 1940 Admission Date: 04/03/2024 5:47 PM Age: 83 y.o. Room[facility]Bed: N4461/[facility] B Discharge Recommendation: Home with Home health [...] 03/07/2020 Osteopenia of left femoral neck 03/07/2020 long term care pharmacist current use of anticoagulant therapy 03/07/2020 Seasonal allergies 03/07/2020 Chronic renal insufficiency, stage III (moderate) ([facility]) 03/07/2020 Major depression, single episode, in complete remission ([facility]) 03/07/2020 Gastroesophageal reflux disease without esophagitis 03/07/2020 Essential hypertension 03/07/2020 Pure hypercholesterolemia 03/07/2020 Overweight 03/07/2020 Psoriasis 03/07/2020 History of cerebrovascular accident 03/07/2020 Atrial fibrillation ([facility]) 03/07/2020 Chronic obstructive pulmonary disease ([facility]) 03/07/2020 Finger osteomyelitis, right ([facility]) 03/06/2020 Medical Precautions: No active isolations Proper [...] of Care supervision is transferred to a [facility] Therapy Services Physical Therapist. Goals and/or treatment plan was established in collaboration with patient/family/other representatives. [facility] Anticoagulation Management Service ([facility]) Inpatient Warfarin [...] and adjust dose accordingly. 3. Will facilitate [facility] follow-up upon discharge. Patient is agreeable to [facility] follow up. 4. Provided warfarin education. Marybeth Rahman RPh, PharmD [facility] Consult Service is available daily [phone] via [employer]. If no response, please page [phone]. Hospitalist Progress Note 04/10/2024 Subjective: Admit Date: 04/03/2024 PCP: Jared Evans MD Room#: N4-461/N4-461 B BRIEF HOSPITAL COURSE: 83-year-old woman with history of A-fib on Eliquis, tobacco use, hypertension, hyperlipidemia, asthma, hiatal hernia, GERD presented to [facility] on 04/03 with right leg pain, numbness, tingling causing difficulty ambulating. CTA of lower extremity showed severe atherosclerotic disease with bilateral superficial femoral artery occlusion and transferred to [facility]. She underwent venous thrombectomy with vascular surgery [...] Jordin Roldan MD Division of Hospitalist Medicine [facility] Nutrition update completed. Chart reviewed. Patient to be monitored and followed by the diet gis mapping technician. FADI Farrar [facility] Anticoagulation Management Service ([facility]) Inpatient Warfarin [...] Will determine if pt is agreeable to [facility] follow-up. 4. Will provide warfarin education. Marybeth Rahman RPh, PharmD [facility] Consult Service is available daily [phone] via Epic Secure Chat. If no response, please page [phone]. Hospitalist Progress Note 04/09/2024 Assessment/Plan: Data: (CAT1) [...] Date: 04/03/2024 PCP: Jared Evans MD Room#: N4-971/N4-327 B Brief Hospital course: Patient is an 83-year-old female with history of A-fib on Eliquis, significant tobacco use, HTN, HLD, asthma, hiatal hernia, GERD who presented to [place] 04/03 with right leg pain, numbness, tingling causing difficulty ambulating. CTA of LE, showing severe LE atherosclerotic disease with bilateral superficial femoral artery occlusion, and was transferred to [facility] for admission. Interval History: Mild shortness of [...] Robert Vigil MD Division of Hospitalist Medicine [facility] Anticoagulation Management Service ([facility]) Inpatient Warfarin Consult HPI: Mel Pop is a 83 y.o. female admitted on 04/03/2024 for Peripheral arterial disease (HCC). Past Medical History: Diagnosis Date Asthma Essential hypertension 03/07/2020 GERD (gastroesophageal reflux disease) Hiatal hernia Pure hypercholesterolemia 03/07/2020 Patient is newly referred to the [facility] clinic for warfarin management. Pt was [...] PharmD [facility] Consult Service is available daily [phone] via Ran[employer]. If no response, please page [phone]. Hospitalist Progress Note 04/08/2024 Assessment/Plan: Data: (CAT1) [...] asthma, hiatal hernia, GERD who presented to [place] 04/03 with right leg pain, numbness, tingling causing difficulty ambulating. CTA of LE, showing severe LE atherosclerotic disease with bilateral superficial femoral artery occlusion, and was transferred to [facility] for admission. Interval History: Pain continues to [...] Robert Vigil MD Division of Hospitalist Medicine [facility] Anticoagulation Management [facility] ([facility]) Inpatient Warfarin Consult HPI: Mel Pop is a 83 y.o. female admitted on 04/03/2024 for Peripheral arterial disease (HCC). Past Medical History: Diagnosis Date Asthma Essential hypertension 03/07/2020 GERD (gastroesophageal reflux disease) Hiatal hernia Pure hypercholesterolemia 03/07/2020 Patient is newly referred to the [facility] clinic for warfarin management. Pt was [...] Will determine if pt is agreeable to [facility] follow-up. 4. Will provide warfarin education. Michelle Lugo RPh, PharmD [facility] Consult Service is available daily [phone] via [employer] Secure Chat. If no response, please page [phone]. Hospitalist Progress Note 04/07/2024 Assessment/Plan: Data: (CAT1) [...] Anticipate DC pending clinical improvement and pain., Die Lay Out Worker recommendations, Coumadin bridge with heparin Total time [...] asthma, hiatal hernia, GERD who presented to [place] 04/03 with right leg pain, numbness, tingling causing difficulty ambulating. CTA of LE, showing severe LE atherosclerotic disease with bilateral superficial femoral artery occlusion, and was transferred to [facility] for admission. Interval History: Pain improved today, [...] Recent Labs 04/05/24 0739 04/06/24 0711 04/07/24 025 NA 133* 135 136 K 4.8 4.6 4.7 CL 113* 114* 115* CO2 17* 18* 17* BUN 25* 17 16 CREATININE 1.12* 0.96 0.90 GLUCOSE 102* 97 139* CALCIUM 8.7 8.9 8.8 ANIONGAP 3 4 4 LIVER PROFILE: No results for input(s): "AST", "ALT", "BILITOT", "ALKPHOS", "PROT" in the last 72 hours. No lab exists for component: LABALBU PT/INR: Recent Labs 04/05/24 0739 04/05/24230604/07/24250 PROTIME 11.9 11.4 11.1 INR 1.1 [...] Robert Vigil MD Division of Hospitalist Medicine [facility] Anticoagulation Management Service ([facility]) Inpatient Warfarin Consult HPI: Mel Pop is a 83 y.o. female admitted on 04/03/2024 for Peripheral arterial disease (HCC). Past Medical History: Diagnosis Date Asthma Essential hypertension 03/07/2020 GERD (gastroesophageal reflux disease) Hiatal hernia Pure hypercholesterolemia 03/07/2020 Patient is newly referred to the [facility] clinic for warfarin management. Pt was [...] PharmD [facility] Consult Service is available daily [phone] via [employer] Secure Chat. If no response, please page [phone]. Department of General Surgery Daily Progress Note [...] George Sarah MD PGY5, General Surgery Pager #[phone] CDI Query Response: Acute thrombus within the [...] Anticipate DC pending clinical improvement and pain., Die Lay Out Worker recommendations, Coumadin bridge with heparin Total time [...] asthma, hiatal hernia, GERD who presented to [place] 04/03 with right leg pain, numbness, tingling causing difficulty ambulating. CTA of LE, showing severe LE atherosclerotic disease with bilateral superficial femoral artery occlusion, and was transferred to [facility] for admission. Interval History: Has significant pain [...] Robert Vigil MD Division of Hospitalist Medicine [facility] Department of General Surgery Daily Progress [...] Infusions:heparin, 5-30 Units/kg/hr, Last Rate: 13 Units/kg/hr (04/05/247) sodium chloride, 125 mL/hr, Last Rate: 125 [...] questions have been answered to their satisfaction. [facility] Anticoagulation Management Service ([facility]) Inpatient Warfarin Consult HPI: Mel Pop is a 83 y.o. female admitted on 04/03/2024 for Peripheral arterial disease (HCC). Past Medical History: Diagnosis Date Asthma Essential hypertension 03/07/2020 GERD (gastroesophageal reflux disease) Hiatal hernia Pure hypercholesterolemia 03/07/2020 Patient is newly referred to the [facility] clinic for warfarin management. Pt was [...] Will determine if pt is agreeable to [facility] follow-up 4. Will provide warfarin education. Marybeth Rahman RPh, PharmD [facility] Consult Service is available daily [phone] via Epic Secure Chat. If no response, please page [phone]. Hospitalist Progress Note 04/05/2024 Assessment/Plan: Data: (CAT1) [...] Discharge Disposition: Anticipate DC pending clinical improvement, excellence consultant recommendations Total time spent (which include [...] asthma, hiatal hernia, GERD who presented to [place] 04/03 with right leg pain, numbness, tingling causing difficulty ambulating. CTA of LE, showing severe LE atherosclerotic disease with bilateral superficial femoral artery occlusion, and was transferred to [facility] for admission. Interval History: Had more RLE [...] Robert Vigil MD Division of Hospitalist Medicine [facility] Nutrition rescreen completed. Chart reviewed. Patient to be monitored and followed by the diet gis mapping technician. FADI Harmon [facility] Anticoagulation Management Service ([facility]) Inpatient Warfarin Consult HPI: Mel Pop is a 83 y.o. female admitted on 04/03/2024 for Peripheral arterial disease (HCC). Past Medical History: Diagnosis Date Asthma Essential hypertension 03/07/2020 GERD (gastroesophageal reflux disease) Hiatal hernia Pure hypercholesterolemia 03/07/2020 Patient is newly referred to the [facility] clinic for warfarin management. Pt was [...] Will determine if pt is agreeable to [facility] follow-up 4. Will provide warfarin education. Thank you for this consult Patty Duggan RPh, PharmD [facility] Consult Service is available daily [phone] via [employer] Secure Chat. If no response, please page [phone]. Department of General Surgery Daily Progress Note [...] or gross discoloration LABS CBC: Recent Labs 04/03/24 1918 04/04/24 0608 WBC 9.3 8.1 HGB 12.7 12.5 [...] Naik MD General Surgery PGY-4 Pager # [phone] Associated attestation - Kristyn Blankenship MD - [...] NPO at midnight for possible thrombectomy tomorrow. [facility] Anticoagulation Management Service ([facility]) Inpatient Warfarin Consult HPI: Mel Pop is a 83 y.o. female admitted on 04/03/2024 for Peripheral arterial disease (HCC). Past Medical History: Diagnosis Date Asthma Essential hypertension 03/07/2020 GERD (gastroesophageal reflux disease) Hiatal hernia Pure hypercholesterolemia 03/07/2020 Patient is newly referred to the [facility] clinic for warfarin management. Pt was [...] Will determine if pt is agreeable to [facility] follow-up 4. Will provide warfarin education. Thank you for this consult Marybeth Rahman RPh, PharmD [facility] Consult Service is available daily [phone] via [employer] Secure Chat. If no response, please page [phone]. Nonbillable encounter. Patient was seen by provider earlier today Patient is an 83-year-old female with history of A-fib on Eliquis, significant tobacco use, HTN, HLD, asthma, hiatal hernia, GERD who presented to [place] 04/03 with right leg pain, numbness, tingling causing difficulty ambulating. CTA of LE, showing severe LE atherosclerotic disease with bilateral superficial femoral artery occlusion, and was transferred to [facility] for admission. Severe bilateral LE atherosclerotic disease [...] Eliquis -Smoking cessation documented in this encounter [facility] 04-13-2024 Note Formatting of this n ote is different from the original. Images from the original note were not included. Care Management Progress Note INR 2.3 today. Hep drip continued, plan to DC to [facility] today. Plan to have PT seen patient today per her request. Patient is active with [facility]. Await treatment plan and clinical progress. food service manager will continue to follow for transitional [...] lower [place], vasc consult" 04/06/2024 Bernie Cutler, MARKETING STRATEGY LEAD - CLEAN ROOM TECHNICIAN 04/04/2024 4:04 AM 04/06/2024 Bernie Cutler APRN - CLEAN ROOM TECHNICIAN 04/03/2024 11:17 PM Length of Stay (Days): 10 GMLOS: 4 [facility] 04-13-2024 Note Formatting of this n ote is different from the original. Images from the original note were not included. Care Management Progress Note INR 2.3 today. Hep drip continued, plan to DC to [facility] today. Plan to have PT seen patient today per her request. Patient is active with [facility]. Await treatment plan and clinical progress. food service manager will continue to follow for transitional [...] vasc consult" 04/06/2024 Bernie Cutler APRN - CLEAN ROOM TECHNICIAN 04/04/2024 4:04 AM 04/06/2024 Bernie Cutler APRN - CLEAN ROOM TECHNICIAN 04/03/2024 11:17 PM Length of Stay (Days): 10 GMLOS: 4 [facility] 04-13-2024 Plan of care note The [...] plan, medications, and discharge instructions Outcome: Progressing [facility] 04-12-2024 Plan of care note Problem: [...] risk of patient condition declining or worsening [facility] 04-12-2024 Note Formatting of this n ote is different from the original. Images from the original note were not included. Care Management Progress Note Patent currently still on Hep Drip, INR 1.9. Will convert to oral when appropriate. Pt active with [facility]- will continue services at discharge. Await treatment plan and clinical progress. food service manager will continue to follow for transitional care needs for discharge planning. Discharge Milestones and Delays Expected date/time: 04/13/2024 Expected discharge disposition: Home Health Services Discharge Milestones Place discharge order Complete med reconciliation Case mgmt discharge readiness Clinical Stability Diagnostic Workup Die Lay Out Worker Recommendations Facility Choice Selection Imaging Results PT [...] Length of Stay (Days): 9 GMLOS: 4 [facility] 04-12-2024 Note Formatting of this n ote is different from the original. Images from the original note were not included. Care Management Progress Note Patent currently still on Hep Drip, INR 1.9. Will convert to oral when appropriate. Pt active with [facility]- will continue services at discharge. Await treatment plan and clinical progress. food service manager will continue to follow for transitional care needs for discharge planning. Discharge Milestones and Delays Expected date/time: 04/13/2024 Expected discharge disposition: Home Health Services Discharge Milestones Place discharge order Complete med reconciliation Case mgmt discharge readiness Clinical Stability Diagnostic Workup Die Lay Out Worker Recommendations Facility Choice Selection Imaging Results PT [...] Length of Stay (Days): 9 GMLOS: 4 [facility] 04-12-2024 Plan of care note The [...] medications, and discharge instructions Outcome: Progressing T [facility] 04-11-2024 Note Formatting of this n ote is different from the original. Images from the original note were not included. Care Management Progress Note Patent currently still on Hep Drip, INR 1.9. Will convert to oral when appropriate. Pt active with [facility]- will continue services at discharge. Await treatment plan and clinical progress. food service manager will continue to follow for transitional [...] vasc consult" 04/06/2024 Bernie Cutler APRN - CLEAN ROOM TECHNICIAN 04/04/2024 4:04 AM 04/06/2024 Bernie Cutler APRN - CLEAN ROOM TECHNICIAN 04/03/2024 11:17 PM Length of Stay (Days): 8 GMLOS: 4 [facility] 04-11-2024 Note Formatting of this n ote is different from the original. Images from the original note were not included. Care Management Progress Note Patent currently still on Hep Drip, INR 1.9. Will convert to oral when appropriate. Pt active with [facility]- will continue services at discharge. Await treatment plan and clinical progress. food service manager will continue to follow for transitional [...] vasc consult" 04/06/2024 Bernie Cutler APRN - CLEAN ROOM TECHNICIAN 04/04/2024 4:04 AM 04/06/2024 Bernie Cutler APRN - CLEAN ROOM TECHNICIAN 04/03/2024 11:17 PM Length of Stay (Days): 8 GMLOS: 4 [facility] 04-11-2024 Plan of care note Problem: [...] risk of patient condition declining or worsening [facility] 04-11-2024 Plan of care note The [...] level or baseline comfort level Outcome: Progressing T [facility] 04-10-2024 Plan of care note Problem: [...] risk of patient condition declining or worsening [facility] 04-10-2024 Note Formatting of this n ote is different from the original. Images from the original note were not included. Care Management Progress Note Patient currently still on Heparin Drip, INR 1.6 today.Will convert to oral when appropriate. Pt active with [facility]- will continue services at discharge. Await treatment plan and clinical progress. food service manager will continue to follow for transitional care needs for discharge planning. Discharge Milestones and Delays Expected date/time: 04/11/2024 Expected discharge disposition: Home or Self Care Discharge Milestones Place discharge order Complete med reconciliation Case mgmt discharge readiness Clinical Stability Diagnostic Workup Die Lay Out Worker Recommendations Facility Choice Selection Imaging Results Patient [...] vasc consult" 04/06/2024 Bernie Cutler APRN - CLEAN ROOM TECHNICIAN 04/04/2024 4:04 AM 04/06/2024 Bernie Cutler APRN - CLEAN ROOM TECHNICIAN 04/03/2024 11:17 PM Length of Stay (Days): 7 GMLOS: 4 [facility] 04-10-2024 Note Formatting of this n ote is different from the original. Images from the original note were not included. Care Management Progress Note Patient currently still on Heparin Drip, INR 1.6 today.Will convert to oral when appropriate. Pt active with [facility]- will continue services at discharge. Await treatment plan and clinical progress. food service manager will continue to follow for transitional care needs for discharge planning. Discharge Milestones and Delays Expected date/time: 04/11/2024 Expected discharge disposition: Home or Self Care Discharge Milestones Place discharge order Complete med reconciliation Case mgmt discharge readiness Clinical Stability Diagnostic Workup Die Lay Out Worker Recommendations Facility Choice Selection Imaging Results Patient [...] Length of Stay (Days): 7 GMLOS: 4 [facility] 04-09-2024 Note Formatting of this n ote is different from the original. Images from the original note were not included. Care Management Progress Note Remains on heparin gtt while transitioning to coumadin. Consult Hemology. Pt active with [facility]- will continue services at discharge. Await treatment plan and clinical progress. food service manager will continue to follow for transitional care needs for discharge planning. Discharge Milestones and Delays Expected date/time: 04/10/2024 Expected discharge disposition: Home or Self Care Discharge Milestones Place discharge order Complete med reconciliation Case mgmt discharge readiness Clinical Stability Diagnostic Workup Die Lay Out Worker Recommendations Facility Choice Selection Imaging Results Patient [...] Length of Stay (Days): 6 GMLOS: 3.1 [facility] 04-09-2024 Note Formatting of this n ote is different from the original. Images from the original note were not included. Care Management Progress Note Remains on heparin gtt while transitioning to coumadin. Consult Hemology. Pt active with [facility]- will continue services at discharge. Await treatment plan and clinical progress. food service manager will continue to follow for transitional care needs for discharge planning. Discharge Milestones and Delays Expected date/time: 04/10/2024 Expected discharge disposition: Home or Self Care Discharge Milestones Place discharge order Complete med reconciliation Case mgmt discharge readiness Clinical Stability Diagnostic Workup Die Lay Out Worker Recommendations Facility Choice Selection Imaging Results Patient [...] Length of Stay (Days): 6 GMLOS: 3.1 [facility] 04-08-2024 Plan of care note Progressing [facility] 04-07-2024 Plan of care note The [...] or baseline comfort level Outcome: Progressing . [facility] 04-07-2024 Hospital Discharge instructions Lolita Sarah [...] Rahman RPh - 04/13/2024 1:07 PM EDT [facility] will monitor your warfarin after you go home. [facility] Phone number: [phone]. Home care nurse will check your INR Monday 04/16 and [facility] will contact you with warfarin dosing [...] detachment Hyperglycemia Osteopenia of left femoral neck long term care pharmacist current use of anticoagulant therapy Seasonal allergies [...] 8 oz) Mental Status: {HECTOR Patient Mental Status:74223} IV Access: {HECTOR IV Access:76782} Nursing Mobility/ADLs: Walking {MAHESH ADL:::"Independent"} Transfer {MAHESH ADL:88989::"Independent"} Bathing {MAHESH ADL:::"Independent"} Dressing {MAHESH ADL:::"Independent"} Toileting {MAHESH ADL:::"Independent"} Feeding {MAHESH ADL:::"Independent"} Warehouse Checker {MAHESH ADL:::"Independent"} Med Delivery {yes/no:82165} Wound Care Documentation and Therapy: Elimination: Continence: Bowel: {yes/no:50923} Bladder: {yes/no:84447} Urinary Catheter: {HECTOR Urinary Catheter:67114} Colostomy/Ileostomy/Ileal Conduit: {YES / NO:} Date of Last BM: Intake/Output Summary (Last 24 hours) at 04/04/2024 1135 Last data filed at 04/03/20242056 Gross per 24 hour Intake 500 ml Output -- Net 500 ml I/O last 3 completed shifts: In: 500 (6.9 mL/kg) [IV Piggyback:500] Out: - (0 mL/kg) Weight: 72.3 kg Safety Concerns: {HECTOR Safety Concerns:11147} Impairments/Disabilities: {HECTOR Impairments/Disabilities:05512} Nutrition Therapy: Current Nutrition Therapy: {HECTOR Diet List:48916} Routes of Feeding: {routes of feedin} Liquids: {liquid consistency:51172} Daily Fluid Restriction: {daily fluid restriction:06466} Last Modified Barium Swallow with Video (Video Swallowing Test): {done not done:33429} Treatments at the Time of Hospital Discharge: Respiratory Treatments: Oxygen Therapy: {Therapy; copd oxygen:09296} Ventilator: {HECTOR Ventilator:04534} Rehab Therapies: {GEN THERAPY DISCIPLINE SCAL:8212919} Weight Bearing Status/Restrictions: {POD WEIGHT BEARIN} Other Medical Equipment (for information only, NOT a DME order): {Assistive Devices DME:58741} Other Treatments: Patient's personal belongings (please select all that are sent with patient): {HECTOR Patient Belongings:17746} RN SIGNATURE: {E-signature:30399} CASE MANAGEMENT/SOCIAL WORK SECTION Inpatient Status Date: Discharging to Facility/ Agency Name: [facility] Address: [address] [place] [address] Dialysis Facility (if applicable) Name: Address: Dialysis Schedule: Phone: Fax: Farm Equipment Engine Mechanic/Obstetrics Tech signature: {E-signature:60546} PHYSICIAN SECTION Name: Mel Pop Prognosis: {Rehab Prognosis:55862} Condition at Discharge: {Patient Condition:86610} Rehab Potential (if transferring to Rehab): {Rehab Prognosis:61859} Recommended Labs or Other Treatments After Discharge: The individual is being admitted to a nursing facility directly from an [facility] or a unit of a [facility] that is not operated by or licensed by [facility] under section 5119.14 or 5160-3-15.1 5 The individual requires the level of services provided by a nursing facility for the condition for which he or she was treated in the hospital and, Physician Certification: I certify the above information and transfer of Mel Pop is necessary for the continuing treatment of the diagnosis listed and that she requires {HECTOR Level of Care:65188} for {greater less than:36898} 30 days. Update Admission H&P: {HECTOR Changes in H&P:47301} PHYSICIAN SIGNATURE: {E-signature:16531} documented in this encounter [facility] 04-07-2024 Nurse Note NO changes to heparin infusion at this time. [facility] 04-06-2024 Note Formatting of this n ote is different from the original. Images from the original note were not included. Care Management Progress Note Pt s/p thrombectomy this am with vascular. Remains on heparin gtt while transitioning to coumadin. [facility]- will continue services at discharge. Discharge [...] vasc consult" 04/06/2024 Bernie Cutler APRN - CLEAN ROOM TECHNICIAN 04/04/2024 4:04 AM 04/06/2024 Bernie Cutler APRN - CLEAN ROOM TECHNICIAN 04/03/2024 11:17 PM Length of Stay (Days): 3 GMLOS: 3.1 [facility] 04-06-2024 Note Formatting of this n ote is different from the original. Images from the original note were not included. Care Management Progress Note Pt s/p thrombectomy this am with vascular. Remains on heparin gtt while transitioning to coumadin. [facility] will continue services at discharge. Discharge [...] vasc consult" 04/06/2024 Bernie Cutler APRN - CLEAN ROOM TECHNICIAN 04/04/2024 4:04 AM 04/06/2024 Bernie Cutler APRN - CLEAN ROOM TECHNICIAN 04/03/2024 11:17 PM Length of Stay (Days): 3 GMLOS: 3.1 [facility] 04-06-2024 Note Formatting of this n ote might be different from the original. Patient report called to 4N RN and denies any further questions. Patient resting comfortably and no signs of distress. Per resident patient to lay flat for 2 hours and restart heparin GTT at 1215. Transport notified. [facility] 04-06-2024 Note Formatting of this n ote might be different from the original. Patient report called to 4N RN and denies any further questions. Patient resting comfortably and no signs of distress. Per resident patient to lay flat for 2 hours and restart heparin GTT at 1215. Transport notified. [facility] 04-06-2024 Note Formatting of this n ote might be different from the original. SW assisted patient with completion of Health Care Power of Glass Products Inspector. One copy placed in patient chart, one copy sent to medical records and two copies given to patient. Requested by patient, while at bedside this SW spoke to patient's son via patients phone to explain that HCPOA was being completed by patient. Patients son José Miguel Castillo ([phone]) agreed to be this patients agent on the HCPOA and confirmed understanding. [email or web address] [facility] 04-06-2024 Note Formatting of this n ote might be different from the original. SW assisted patient with completion of Health Care Power of Glass Products Inspector. One copy placed in patient chart, one copy sent to medical records and two copies given to patient. Requested by patient, while at bedside this SW spoke to patient's son via patients phone to explain that HCPOA was being completed by patient. Patients son José Miguel Castillo ([phone]) agreed to be this patients agent on the HCPOA and confirmed understanding. [facility] 04-06-2024 Note Formatting of this n ote [...] technique was used to place a 5 Solomon Islander sheath. A Hymiteson wire was able to be advanced in the inferior vena cava without difficulty. The 5 [place] Islander sheath was then upsized to a 16 [place] Islander sheath and the penumbra flash suction thrombectomy device was prepared per technical support coordinator's instructions. The patient was also given 5000 units of heparin for systemic anticoagulation at this time. The Penumbra device was then inserted through the 16 [place] Islander sheath and a suction thrombectomy was performed [...] device was removed as was the 16 [place] Islander sheath and an 0 silk suture was [...] the case. Kristyn Blankenship MD Vascular Surgery [facility] 04-06-2024 Note Formatting of this n ote is different from the original. Date: 04/06/2024 Location: [facility] OR Name: Mel Pop DOB: 1940, Diagnosis Pre-op Diagnosis * Right leg DVT (HCC) [I82.401] Post-op Diagnosis * Right leg DVT (HCC) [I82.401] Procedures RIGHT LOWER EXTREMITY VENOUS MECHANICAL THROMBECTOMY 75200 - ME PRQ TRANSLUMINAL MECHANICAL THROMBECTOMY VEIN Surgeons * Kristyn Blankenship - Primary Procedure Summary Anesthesia: General ASA: III Estimated Blood Loss: 300 mL Drains: * None in log * Staff: Percussion Teacher: Negrita Elizabeth RN; Amira Burton RN Scrub [...] antibiotics are not indicated for this procedure. [facility] 04-06-2024 Note Formatting of this n [...] technique was used to place a 5 Solomon Islander sheath. A Bentson wire was able to be advanced in the inferior vena cava without difficulty. The 5 [place] Islander sheath was then upsized to a 16 [place] Islander sheath and the penumbra flash suction thrombectomy device was prepared per technical support coordinator's instructions. The patient was also given 5000 units of heparin for systemic anticoagulation at this time. The Penumbra device was then inserted through the 16 [place] Islander sheath and a suction thrombectomy was performed [...] device was removed as was the 16 [place] Islander sheath and an 0 silk suture was [...] the case. Kristyn Blankenship MD Vascular Surgery [facility] 04-06-2024 Note Formatting of this n ote is different from the original. Date: 04/06/2024 Location: [facility] OR Name: Mel Pop, : 1940, Diagnosis Pre-op Diagnosis * Right leg DVT (HCC) [I82.401] Post-op Diagnosis * Right leg DVT (HCC) [I82.401] Procedures RIGHT LOWER EXTREMITY VENOUS MECHANICAL THROMBECTOMY 92536 - ME PRQ TRANSLUMINAL MECHANICAL THROMBECTOMY VEIN Surgeons * Kristyn Blankenship - Primary Procedure Summary Anesthesia: General ASA: III Estimated Blood Loss: 300 mL Drains: * None in log * Staff: Percussion Teacher: Negrita Elizabeth RN; Amira Burton RN Scrub [...] antibiotics are not indicated for this procedure. [facility] 04-06-2024 Note Formatting of this n ote might be different from the original. Dr Blankenship at bedside. She called family to update them on procedure time change [facility] 04-06-2024 Note Formatting of this n ote might be different from the original. Dr Blankenship at bedside. She called family to update them on procedure time change [facility] 04-06-[address] Blankenship at bedside. She called family to update them on procedure time change [facility] 04-05-2024 Note Formatting of this n ote is different from the original. Images from the original note were not included. Care Management Progress Note Vascular following with noted plan for possible thrombectomy tomorrow. Remains on heparin gtt while transitioning to coumadin per oncology recommendation. [facility]- will return. Discharge Milestones and Delays Expected [...] Length of Stay (Days): 2 GMLOS: 3.1 [facility] 04-05-2024 Note Formatting of this n ote is different from the original. Images from the original note were not included. Care Management Progress Note Vascular following with noted plan for possible thrombectomy tomorrow. Remains on heparin gtt while transitioning to coumadin per oncology recommendation. Pt from home alone- indep and active with [facility]- will return. Discharge Milestones and Delays Expected [...] vasc consult" 04/06/2024 Bernie Cutler APRN - CLEAN ROOM TECHNICIAN 04/04/2024 4:04 AM 04/06/2024 Bernie Cutler APRN - CLEAN ROOM TECHNICIAN 04/03/2024 11:17 PM Length of Stay (Days): 2 GMLOS: 3.1 [facility] 04-05-2024 Plan of care note The patient is Moderately Stable - Low risk of patient condition declining or worsening The patient's goals for the shift include met The clinical goals for the shift include met [facility] 04-04-2024 Consult note Formatting of th is note is different from the original. Images from the original note were not included. [facility] Hematology Oncology Inpatient Consultation [facility] Mel Augustpherd : 1940(83 y.o.) Date: April 04, 2024 Attending: Dr. Patel Reason for consult: Primary Care Physician - Jared Evans MD Date of Admission - 04/03/2024 5:47 PM Subjective: Chief Complaint Patient presents with Numbness Leg Swelling HPI Mel Pop is a 83 y.o. woman with a history of severe atherosclerosis, COPD, former smoker, diverticulosis, afib, hypertension, and GERD who presented to [facility] for right lower extremity pain. Reports after [...] trifurcation vessels. Vascular surgery recommended transfer to [facility]. PVR and BLE US results pending however [...] called her listed contacts (her friend and [id number] however they do not manage her pill [...] eliquis. I have left a voicemail with [facility] pharmacy in [place] to see if the Eliquis is being [...] min Stress: No Stress Concern Present (04/04/2024) [facility] - Occupational Stress Questionnaire Feeling of Stress : Not at all Social Connections: Moderately Isolated (04/04/2024) Social Connection and Isolation Panel [NHANES] Frequency of Communication with Friends and Family: More than three times a week Frequency of Social Gatherings with Friends and Family: More than three times a week Attends Taoism Services: 1 to 4 times per year [...] 04/03/2024 [facility] 1940 [id number] Exam Date/Time: 04/03/2024 21:14 Procedure: CTA AORTA [...] 04/03/2024 Patient Name: MEL POP : 1940 [facility]#: [id number] Exam Date/Time: 04/03/2024 21:06 Procedure: CT HEAD [...] completing clinical documentation as well as with [id number] patient care, performing a medically appropriate examination, counseling / educating the patient/family/caregiver, and ordering medications, tests, or procedures. Electronically signed by Anthony Yee APRN - CLEAN ROOM TECHNICIAN Attending Attestation Note: I have personally performed [...] well as answering questions. Andre Patel MD [employer] Phone: 04-04-2024 Consult note Formatting of th is note is different from the original. Images from the original note were not included. [facility] Hematology Oncology Inpatient Consultation [facility] Mel Pop : 1940(83 y.o.) Date: April 04, 2024 Attending: Dr. Patel Reason for consult: Primary Care Physician - Jared Evans MD Date of Admission - 04/03/2024 5:47 PM Subjective: Chief Complaint Patient presents with Numbness Leg Swelling HPI Mel Pop is a 83 y.o. woman with a history of severe atherosclerosis, COPD, former smoker, diverticulosis, afib, hypertension, and GERD who presented to [facility] for right lower extremity pain. Reports after [...] trifurcation vessels. Vascular surgery recommended transfer to [facility]. PVR and BLE US results pending however [...] called her listed contacts (her friend and nbcochhx-ju-ken however they do not manage her pill [...] eliquis. I have left a voicemail with [facility] pharmacy in [place] to see if the Eliquis is being [...] min Stress: No Stress Concern Present (04/04/2024) [employer] - Occupational Stress Questionnaire Feeling of Stress : Not at all Social Connections: Moderately Isolated (04/04/2024) Social Connection and Isolation Panel [NHANES] Frequency of Communication with Friends and Family: More than three times a week Frequency of Social Gatherings with Friends and Family: More than three times a week Attends Taoism Services: 1 to 4 times per year [...] 04/03/2024 [facility] 1940 [id number] Exam Date/Time: 04/03/2024 21:14 Procedure: CTA AORTA [...] 04/03/2024 Patient Name: [facility] 1940 [id number] Exam Date/Time: 04/03/2024 21:06 Procedure: CT HEAD [...] completing clinical documentation as well as with phne-cf-lkjy patient care, performing a medically appropriate examination, [...] Lolita Sarah MD PGY5, General Surgery Pager #[phone] Past Medical History: Diagnosis Date Asthma Essential [...] min Stress: No Stress Concern Present (04/04/2024) [employer] - Occupational Stress Questionnaire Feeling of Stress : Not at all Social Connections: Moderately Isolated (04/04/2024) Social Connection and Isolation Panel [NHANES] Frequency of Communication with Friends and Family: More than three times a week Frequency of Social Gatherings with Friends and Family: More than three times a week Attends Taoism Services: 1 to 4 times per year [...] TESTING: Patient Name: MEL POP : 1940 [facility]#: [id number] Exam Date/Time: 04/03/2024 21:14 Procedure: CTA AORTA [...] history and claudication symptoms. Abs show right MICEHLLE 0.55. and left MICHELLE 0.62. 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 On exam there is right lower extremity swelling. No evidence of phlegmasia. Heparin gtt initiated at [facility] prior to transfer and continued here. She notes missed doses of her Eliquis. Recommend compression and elevation of the right lower extremity. Can consider mechanical thrombectomy however given patient's age, this may be more risk than of benefit. Will continue to monitor for symptom improvement on anticoagulation alone. documented in this encounter [facility] 04-04-2024 Note Formatting of this n ote might be different from the original. Care Managment Initial Assessment Date: 04/04/2024 Patient Name: Mel Pop : 1940 Patient Information Source of Information: Patient Cognition/Language: WFL - Within Functional Limits Permission given to speak with patient auto service representative/caregiver as indicated: Confirmation of Payer with patient/family: Yes Payer Name: [employer] [place]: No Confirmation of Primary Care Physician: Confirmed [...] Home Health Services [facility] Dialysis Type: NA Durable Medical Equipment: Cane, [...] home alone and indep. Pt active with [facility]- liaison following for continued services. Pt uses walker/cane at baseline. Pt has insurance, PCP and able to obtain meds. Pt's friends help with transportation. No needs antic at discharge. Virginia Rehman RN [facility] 04-04-2024 Note Formatting of this n ote might be different from the original. Care Managment Initial Assessment Date: 04/04/2024 Patient Name: Mel Pop : 1940 Patient Information Source of Information: Patient Cognition/Language: WFL - Within Functional Limits Permission given to speak with patient auto service representative/caregiver as indicated: Confirmation of Payer with patient/family: Yes Payer Name: [employer] [place]: No Confirmation of Primary Care Physician: Confirmed [...] home alone and indep. Pt active with [facility]- liaison following for continued services. Pt uses walker/cane at baseline. Pt has insurance, PCP and able to obtain meds. Pt's friends help with transportation. No needs antic at discharge. Virginia Rehman RN [facility] 04-04-2024 Note Formatting of this n ote is different from the original. Start PACC Note Home Health Referral Educated patient on Home Care and services available. Patient offered choice of available HHC and agreeable to SN/PT services with [facility]. Care Types: [...] is noted as yes - consider a POTLINE MONITOR evaluation once the patient returns home. START PATIENT REGISTRATION INFORMATION Order Information Order Signing Physician: Robert Vigil MD Service Ordered RN ?: Yes Service Ordered PT ?: Yes Service Ordered OT ?: No Service Ordered ST ?: No Service Ordered POTLINE MONITOR?:No Service Ordered GLASS INSPECTOR?: No Following Physician: Jared Evans MD Following Physician Overseeing Physician: Jared Evans MD (Required for Residents only) Agreeable to Follow? Yes Date/Time of Call 04/04/24 11:36 AM, Spoke with: Patient is a DEB. Care Coordination Same Day SOC?: No Primary Care Physician: Jared Evans MD Primary Care Physician Primary Care Physician Address: [address] [place] [id number] Visit Instructions: N/A Service Discharge Location Type: Home with Home Care Service Facility Name: N/A Service Floor Facility: N/A Service Room No: N/A Demographics Patient Last Name: Pop Patient First Name: Mel Language/Communication Barrier: none Service Address: [address] [address] Service City: [place] Service ST: [place] Service ZIP: [address] Service Other phone numbers: Telephone Information: Emergency [...] Caregiver Phone Number: na Caregiver Notes: N/A [employer] List No END PATIENT REGISTRATION INFORMATION Pt [...] intervention. Discharge Date: pending Referral Source-PACC: (Hospital/Unit): [facility] / N4-461/N4-461 B End PACC Note [facility] 04-04-2024 Note Formatting of this n ote is different from the original. Start PACC Note Home Health Referral Educated patient on Home Care and services available. Patient offered choice of available HHC and agreeable to SN/PT services with [facility]. Care Types: [...] is noted as yes - consider a POTLINE MONITOR evaluation once the patient returns home. START PATIENT REGISTRATION INFORMATION Order Information Order Signing Physician: Robert Vigil MD Service Ordered RN ?: Yes Service Ordered PT ?: Yes Service Ordered OT ?: No Service Ordered ST ?: No Service Ordered POTLINE MONITOR?:No Service Ordered GLASS INSPECTOR?: No Following Physician: Jared Evans MD Following Physician Overseeing Physician: Jared Evans MD (Required for Residents only) Agreeable to Follow? Yes Date/Time of Call 04/04/24 11:36 AM, Spoke with: Patient is a DEB. Care Coordination Same Day SOC?: No Primary Care Physician: Jared Evans MD Primary Care Physician Primary Care Physician Address: [address] [place] [address] Visit Instructions: N/A Service Discharge Location Type: Home with Home Care Service Facility Name: N/A Service Floor Facility: N/A Service Room No: N/A Demographics Patient Last Name: Kiesha Patient First Name: Mel Language/Communication Barrier: none Service Address: [address] Service City: [place] Service ST: [place] Service ZIP: [address] Service Other phone numbers: Telephone Information: Emergency [...] Caregiver Phone Number: na Caregiver Notes: N/A [employer] List No END PATIENT REGISTRATION INFORMATION Pt [...] intervention. Discharge Date: pending Referral Source-PACC: (Hospital/Unit): [facility] / N4-461/N4-461 B End PACC Note [facility] 04-04-2024 Plan of care note The patient is Moderately Stable - Low risk of patient condition declining or worsening The patient's goals for the shift include safety The clinical goals for the shift include therapeutic aptt [facility] 04-04-2024 Note Formatting of this n ote might be different from the original. Patient is currently active with [facility]. The patients current certification period will on 05/18/24. The patient is currently receiving PT services through the agency. Medical Billing Specialist to continue to follow. [facility] 04-04-2024 Note Formatting of this n ote might be different from the original. Patient is currently active with [facility]. The patients current certification period will on 05/18/24. The patient is currently receiving PT services through the agency. Medical Billing Specialist to continue to follow. [facility] 04-04-2024 Consult note Associated Order (s): IP [...] Lolita Sarah MD PGY5, General Surgery Pager #[phone] Past Medical History: Diagnosis Date Asthma Essential [...] min Stress: No Stress Concern Present (04/04/2024) [employer] - Occupational Stress Questionnaire Feeling of Stress : Not at all Social Connections: Moderately Isolated (04/04/2024) Social Connection and Isolation Panel [NHANES] Frequency of Communication with Friends and Family: More than three times a week Frequency of Social Gatherings with Friends and Family: More than three times a week Attends Taoism Services: 1 to 4 times per year [...] TESTING: Patient Name: MEL POP : 1940 [facility]#: [id number] Exam Date/Time: 04/03/2024 21:14 Procedure: CTA AORTA [...] Report Dictated on Electronically Signed By: Toño Tagn MD Electronically Signed Date/Time: 04/03/2024 9:36 PM [...] evidence of phlegmasia. Heparin gtt initiated at [facility] prior to transfer and continued here. She notes missed doses of her Eliquis. Recommend compression and elevation of the right lower extremity. Can consider mechanical thrombectomy however given patient's age, this may be more risk than of benefit. Will continue to monitor for symptom improvement on anticoagulation alone. [employer] Phone: 09-18-2024 Note Formatting of this n ote is different from the original. [facility] [employer] Mel Pop : 1940 Primary Care Physician: Jared Evans MD The patient and/or family/surrogate voluntarily agreed to participate in ACP services. Patient s cognitive capacity: intact Code Status: [ ] [FULL CODE - Continue all advanced life support: CPR,intubation,invasive procedures] [X] [DNR-CCA - DO NOT do CPR, intubation] [_] [DNR-OCCUPATIONAL WORK EXPERIENCE TEACHER - Comfort care only] [_] DNR form [...] with patient and/or family/surrogate. Pratibha Avelar DO [facility] care [facility] 04/04/2024, 5:40 AM [facility] 04-04-2024 Note Formatting of this n [...] - DO NOT do CPR, intubation] [_] [DNR-OCCUPATIONAL WORK EXPERIENCE TEACHER - Comfort care only] [_] DNR form [...] with patient and/or family/surrogate. Pratibha Avelar DO [email or web address] [facility] [employer] 04/04/2024, 5:40 AM [facility] 04-04-2024 History and physical note Attending [...] min Stress: No Stress Concern Present (04/04/2024) [employer] - Occupational Stress Questionnaire Feeling of Stress : Not at all Social Connections: Moderately Isolated (04/04/2024) Social Connection and Isolation Panel [NHANES] Frequency of Communication with Friends and Family: More than three times a week Frequency of Social Gatherings with Friends and Family: More than three times a week Attends Taoism Services: 1 to 4 times per year [...] morning. pantoprazole (ProtoNix) 40 MG EC tablet Mark Ellipta 100-62.5-25 MCG/ACT aerosol powder Allergies: Allergies [...] DO Division of Hospitalist Medicine Inpatient Medical Services/[facility] Phone: 04-04-2024 Note [facility] 04-04-2024 History and physical note Attending [...] min Stress: No Stress Concern Present (04/04/2024) [employer] - Occupational Stress Questionnaire Feeling of Stress : Not at all Social Connections: Moderately Isolated (04/04/2024) Social Connection and Isolation Panel [NHANES] Frequency of Communication with Friends and Family: More than three times a week Frequency of Social Gatherings with Friends and Family: More than three times a week Attends Taoism Services: 1 to 4 times per year [...] Relation: Child Pratibha Avelar DO [facility] documented in this encounter [facility] 04-04-2024 Plan of care note The patient is Moderately Stable - Low risk of patient condition declining or worsening The patient's goals for the shift include met The clinical goals for the shift include met Over the shift, the patient did not make progress toward the following goals. Barriers to progression include . Recommendations to address these barriers include . [facility] 04-04-2024 Emergency department Note Report to Delia Bond RN 04/04/24341 [facility] 04-04-2024 Emergency department Note Report to Delia Bond RN 04/04/24341 Multiple attempts made to call report to [facility] with phone number provided by caustic purification operator, but when phone number dialed RN only gets busy tone. Will try again. Shannon Bond RN 04/04/24 0331 [facility] at bedside to transport pt to [facility]. Paperwork with EMS Shannon Bond RN 04/04/24 [...] Resource Strain: Low Risk (05/18/2022) Received from [facility] Overall Financial Resource Strain (CARDIA) Difficulty of Paying Living Expenses: Not hard at all Food Insecurity: No Food Insecurity (05/18/2022) Received from [facility] Hunger Vital Sign Worried About Running Out of Food in the Last Year: Never true Ran Out of Food in the Last Year: Never true Transportation Needs: No Transportation Needs (05/18/2022) Received from [facility] PRAPARE - Transportation Lack of Transportation (Medical): No Lack of Transportation (Non-Medical): No Housing Stability: Unknown (05/18/2022) Received from [facility] Housing Stability Vital Sign Unable to [...] DIFFERENTIAL DIAGNOSIS/MDM: Vitals: Vitals: 04/03/243 04/03/24 2046 04/03/243 04/03/242203 BP: (!) 142/63 [...] extremities will heparinize or admit her to [facility] in case she needs an emergent [...] SEBASTIAN Herrera CNP 04/03/242237 Emergency Department Encounter [facility] Patient: Mel Pop : [...] consulted recommends heparin drip and transferred to [facility], 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 Patient admitted to [facility]. Patient in agreement with plan. Diagnostics interpreted [...] or other complaints. documented in this encounter [facility] 04-04-2024 Emergency department Note Multiple attempts made to call report to [facility] with phone number provided by caustic purification operator, but when phone number dialed RN only gets busy tone. Will try again. Shannon Bond RN 04/04/24 0331 [facility] 04-04-2024 Emergency department Note [facility] at bedside to transport pt to [facility]. Paperwork with EMS Shannon Bond RN 04/04/24 0314 [facility] 04-03-2024 Emergency department Triage note Pt [...] upon arrival. No SOB or other complaints. [facility] 04-03-2024 Physician Emergency department Note EMERGENCY [...] Resource Strain: Low Risk (05/18/2022) Received from [facility] Overall Financial Resource Strain (CARDIA) Difficulty of Paying Living Expenses: Not hard at all Food Insecurity: No Food Insecurity (05/18/2022) Received from [facility] Hunger Vital Sign Worried About Running Out of Food in the Last Year: Never true Ran Out of Food in the Last Year: Never true Transportation Needs: No Transportation Needs (05/18/2022) Received from [facility] PRAPARE - Transportation Lack of Transportation (Medical): No Lack of Transportation (Non-Medical): No Housing Stability: Unknown (05/18/2022) Received from [facility] Housing Stability Vital Sign Unable to [...] [facility] (Per Emergency Physician): Interpretation per [...] 82. I also reviewed external records from [facility]. I discussed their care with none. Consideration for escalation of care with: Admission/observation discussed case with Dr. Blankenship, will place her on heparin, she does have reconstitution past the mid femoral occlusion and she has normal range of motion to the lower extremities but she has severe disease to the lower extremities will heparinize or admit her to [facility] in case she needs an emergent [...] Medicine Provider SEBASTIAN Herrera CNP 04/03/24 2238 [facility] 04-03-2024 Physician Emergency department Note Emergency Department Encounter [facility] Patient: Mel Pop : [...] consulted recommends heparin drip and transferred to [facility], 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 Patient admitted to [facility]. Patient in agreement with plan. Diagnostics interpreted [...] [employer] Winifred Cornell DO 04/06/24 1625 [facility] Work Phone: 07-27-2023 History of Present illness Narrative [facility] [address] [place] [address] [address] [facility] [address] Dept: [phone] Dept Mel Serna Pop 1940 [id number] 07/27/2023 HISTORY OF PRESENT ILLNESS: Mel is [...] improve. Electronically signed by Ming Weinberg MD [facility] Department of Orthopedic surgery 07/27/2023 5:21 PM Voice recognition was used for portions of this note and although it was reviewed prior to signing some incorrect words or phrases could be present. documented in this encounter [facility] 07-06-2022 Miscellaneous Notes PATIENT INFORMATION Record ID: [id number] Patient Name: Mel [facility]: [facility] Nursery: [facility] Attending: Iwona Chu Center: Internal Medicine and Geriatrics INSTRUCTIONS All Clear SN to remind patient of next upcoming appointment date, time, location All Clear All Clear All Clear SURVEY INFORMATION Medical/Nurse Shuttler: Inés Tubbs 1. Your discharge instructions are [...] Question) No documented in this encounter [facility] 06-29-2022 Note HNO ID: [id number] Author: Joana Tolbert RPh Service: Pharmacy Author [...] Medications These medications were sent to [facility] [address] [address] Hours: Tuesday-Tuesday, 8am-4:30pm apixaban 5 mg (74 tabs) ascorbic acid (vitamin C) 500 mg tablet bacitracin 500 unit/gram ointment guaiFENesin 600 mg 12 hr tablet HYDROcodone-acetaminophen 5-325 mg per tablet lactobacillus rhamnosus 10 billion cell capsule metoprolol tartrate (short acting) [address] 40 mg tablet sucralfate 1 gram tablet [facility] 06-29-2022 Note HNO ID: [id number] Author: Kassidy Mejia RN Service: Care Management [...] needs and plan for meeting these needs: [facility] HANDOFF COMMUNICATION: TRANSPORTATION ARRANGEMENTS: Transportation Arrangements: Car ADDITIONAL CONTACT RESOURCES: [facility] was able to approve and deliver home O2. SIGNATURE: Kassidy Mejia RN PATIENT NAME: Mel Castillo DATE: June 29, 2022 TIME: 12:38 PM PAGER/CONTACT #: [phone] [facility] 06-28-2022 Note HNO ID: [id number] Author: Iwona Chu DO Service: Hospital Medicine Author Type: Physician Type: Progress Notes Filed: 06/28/2022 8:58 PM Note Text: Needs O2 arranged before discharge [facility] 06-28-2022 Note HNO ID: [id number] Author: Irene Han RN Service: Care Management [...] In Person (verbalized understanding) Referral sent to [facility] [[email or web address] for home going O2. Awaiting ambulatory pox to be completed. Plan to return home with family support and HHC through [facility]. Family to transport. Will need home O2/HC orders, prior to dc. IMM completed. UPDATE @ 5665: [facility] [[email or web address]] is outside of the patient's service area. Additional DMR referrals sent to [facility] and [facility]; awaiting response. Will need accepting DMR provider and home O2 delivery, prior to discharge. Oxygen/HC orders in [facility]. SIGNATURE: Irene Han RN PATIENT NAME: Mel Castillo DATE: June 28, 2022 TIME: 1:58 PM PAGER/CONTACT #: [phone] [facility] 06-28-2022 Note HNO ID: [id number] Author: Iwona Chu DO Service: Hospital Medicine [...] micropuncture needle and serially upsized to a 5-[place] Islander sheath. A venogram was then performed, which [...] time, the sheath was upsized to an 8-[place] Islander sheath. An intravascular ultrasound was performed. This [...] GI (more content not included)... [facility] 06-27-2022 Note HNO ID: [id number] Author: Iwona Chu DO Service: Hospital Medicine [...] micropuncture needle and serially upsized to a 5-[place] Islander sheath. A venogram was then performed, which [...] time, the sheath was upsized to an 8-[place] Islander sheath. An intravascular ultrasound was performed. This [...] hh (more content not included)... [facility] 06-26-2022 Note HNO ID: [id number] Author: Iwona Chu DO Service: Hospital Medicine [...] micropuncture needle and serially upsized to a 5-[place] Islander sheath. A venogram was then performed, which [...] time, the sheath was upsized to an 8-[place] Islander sheath. An intravascular ultrasound was performed. This [...] subacute/SNF (more content not included)... [facility] 06-25-2022 Note HNO ID: [id number] Author: Heron Ayers MD Service: Hospital Medicine [...] mg ORAL 2 TIMES DAILY Given, 06/25 84106/24/22181207/02/2285806/16/221944 vte current anticoag therapy (al,mn) 06/16/221944 activity - mobilize patient (al,mn) VTE Prophylaxis: VTE prophylaxis appropriate Disposition: Home Plan of care discussed with: Provider, RN, Patient SIGNATURE: Heron Ayers MD PATIENT NAME: Mel Castillo DATE: June 25, 2022 TIME: 12:03 PM etx [id number] [facility] 06-25-2022 Note HNO ID: [id number] Author: Kassidy Mejia RN Service: Care Management [...] 25, 2022 TIME: 11:30 AM PAGER/CONTACT #: [phone] [facility] 06-24-2022 Note HNO ID: [id number] Author: Richie Yi MD Service: General Internal Medicine Author Type: Physician Type: Progress Notes Filed: 06/24/2022 6:34 PM Note Text: DEPARTMENT OF HOSPITAL MEDICINE PROGRESS NOTE SERVICE DATE: 06/23/2022 SERVICE TIME: 7:19 PM Hospital Medicine/Primary Attending: Richie Yi MD NIGHT AND WEEKEND COVERAGE: [place] COVERAGE: After 7pm, please call cross cover pager #[phone] Subjective Patient was seen today. She is [...] 0300 06/16/22 194 vte current anticoag therapy (al,[place]) 06/16/221944 activity - mobilize patient (al,mn) VTE Prophylaxis: VTE prophylaxis appropriate Disposition: To be determined Plan of care discussed with: Provider, RN, Patient SIGNATURE: Richie Yi MD PATIENT NAME: Mel Castillo DATE: June 23, 2022 TIME: 7:19 PM etx [id number] [facility] 06-24-2022 Note HNO ID: [id number] Author: SHAQUILLE Kaye Service: Care Management Author Type: Obstetrics Tech Type: Care Mgt Progress Note Filed: 06/24/2022 [...] 24, 2022 TIME: 1:02 PM PAGER/CONTACT #: [phone] [facility] 06-23-2022 Note HNO ID: [id number] Author: Richie Yi MD Service: General Internal Medicine Author Type: Physician Type: Progress Notes Filed: 06/23/2022 7:28 PM Note Text: DEPARTMENT OF HOSPITAL MEDICINE PROGRESS NOTE SERVICE DATE: 06/23/2022 SERVICE TIME: 7:19 PM Hospital Medicine/Primary Attending: Richie Yi MD NIGHT AND WEEKEND COVERAGE: [place] COVERAGE: After 7pm, please call cross cover pager #[phone] Subjective Patient was seen today. She is [...] 1028 -- 06/16/221944 vte current anticoag therapy ([place]) 06/16/221944 activity - mobilize patient ([place]) VTE Prophylaxis: VTE prophylaxis appropriate Disposition: To be determined Plan of care discussed with: Provider, RN, Patient SIGNATURE: Richie Yi MD PATIENT NAME: Mel Castillo DATE: June 23, 2022 TIME: 7:19 PM etx [phone] [facility] 06-23-2022 Note HNO ID: [id number] Author: Kassidy Mejia RN Service: Care Management Author Type: Registered Nurse Type: Care Mgt Progress Note Filed: 06/23/2022 4:00 PM Note Text: CARE MANAGEMENT PROGRESS NOTE SERVICE DATE: 06/23/2022 SERVICE TIME: 3:55 PM LOS: 7 days Spoke with pt at the bedside. Discussed SNF placement. Auth obtained for [facility]- pt would be responsible for copay 50% of cost per day for days 1-100. Pt refusing SNF at this time. Pt would like to d/c home with her son and dtr-in-law to ([address] [place] [address]). [address] to [facility]- Referrals sent. Pt may need home O2- await ambulatory pulse ox. Family likely able to transport at d/c. CM to follow. SIGNATURE: Kassidy Mejia RN PATIENT NAME: Mle Castillo DATE: June 23, 2022 TIME: 3:53 PM PAGER/CONTACT #: [phone] [facility] 06-22-2022 Note HNO ID: [id number] Author: Dwayne Zaidi MD Service: Hospital Medicine Author Type: Physician Type: Progress Notes Filed: 06/22/2022 6:47 PM Note Text: DEPARTMENT OF HOSPITAL MEDICINE PROGRESS NOTE SERVICE DATE: 06/22/2022 SERVICE TIME: 6:42 PM Hospital Medicine/Primary Attending: Dwayne Zaidi MD NIGHT AND WEEKEND COVERAGE: After 7pm please page [phone] CHIEF COMPLAINT: Follow-up for acute left lower [...] bowel sounds normally heard, no mass palpable VIDEO GAME TESTER- cranial nerves 2 to 12 grossly intact, [...] -- (more content not included)... [facility] 06-22-2022 Note HNO ID: [id number] Author: Kassidy Mejia RN Service: Care Management Author Type: Registered Nurse Type: Care Mgt Progress Note Filed: 06/22/2022 10:15 AM Note Text: CARE MANAGEMENT PROGRESS NOTE SERVICE DATE: 06/22/2022 SERVICE TIME: 10:15 AM LOS: 6 days IMM Follow Up Copy Given: Yes Copy given to:: Patient Method: In Person (verbal) [facility] is able to accept pt. Precert tasked. Pt will need cot for transport. CM to follow. SIGNATURE: Kassidy Mejia RN PATIENT NAME: Mel Castillo DATE: June 22, 2022 TIME: 10:14 AM PAGER/CONTACT #: [phone] [facility] 06-21-2022 Note HNO ID: [id number] Author: Dwayne Zaidi MD Service: Hospital Medicine Author Type: Physician Type: Progress Notes Filed: 06/21/2022 4:10 PM Note Text: DEPARTMENT OF HOSPITAL MEDICINE PROGRESS NOTE SERVICE DATE: 06/21/2022 SERVICE TIME: 4:04 PM Hospital Medicine/Primary Attending: Dwayne Zaidi MD NIGHT AND WEEKEND COVERAGE: After 7pm please page [phone] CHIEF COMPLAINT: Follow-up for acute left lower [...] bowel sounds normally heard, no mass palpable VIDEO GAME TESTER- cranial nerves 2 to 12 grossly intact, [...] Labs 06/21/22 0554 06/20/22 1903 06/20/22 0552 06/19/223 06/19/22 0513 06/18/22 0416 [...] on file COPD (chronic obstructive pulmonary disease) ([facility]) POA: Status not on file Tobacco abuse [...] Has (more content not included)... [facility] 06-21-2022 Note HNO ID: [id number] Author: Kassidy Mejia RN Service: Care Management Author Type: Registered Nurse Type: Care Mgt Progress Note Filed: 06/21/2022 3:44 PM Note Text: CARE MANAGEMENT PROGRESS NOTE SERVICE DATE: 06/21/2022 SERVICE TIME: 3:41 PM LOS: 5 days Spoke with pt at the bedside. Pt states that she lives at home alone. PT/OT rec SNF. Pt would like [facility]- referral sent. Await acceptance. Pt will need precert when medically stable. Pt will need cot for transport. Cm to follow. SIGNATURE: Kassidy Mejia RN PATIENT NAME: Mel Castillo DATE: June 21, 2022 TIME: 3:41 PM PAGER/CONTACT #: [phone] [facility] 06-21-2022 Note HNO ID: [id number] Author: Primo Dodd APRN.SHAMIKA Service: Gastroenterology Author [...] evidence (more content not included)... [facility] 06-20-2022 Note HNO ID: [id number] Author: Acacia Hardin DO Service: General Surgery Author Type: Resident Type: Plan of Care Filed: 06/20/2022 1:40 PM Note Text: Plan of Care Dr. 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 Spoke with Dr. Wilson, clinical nutrition manager for Dr. Rodriguez, and she states [...] Hardin DO 06/20/2022 1:36 PM [facility] 06-20-2022 Note HNO ID: [id number] Author: Dwayne Zaidi MD Service: Hospital Medicine Author Type: Physician Type: Progress Notes Filed: 06/20/2022 12:39 PM Note Text: DEPARTMENT OF HOSPITAL MEDICINE PROGRESS NOTE SERVICE DATE: 06/20/2022 SERVICE TIME: 12:35 PM Hospital Medicine/Primary Attending: Dwayne Zaidi MD NIGHT AND WEEKEND COVERAGE: After 7pm please page [phone] CHIEF COMPLAINT: Follow-up for acute left lower [...] bowel sounds normally heard, no mass palpable VIDEO GAME TESTER- cranial nerves 2 to 12 grossly intact, [...] tahmina (more content not included)... [facility] 06-19-2022 Note HNO ID: [id number] Author: Dwayne Zaidi MD Service: Hospital Medicine Author Type: Physician Type: Progress Notes Filed: 06/19/2022 4:33 PM Note Text: DEPARTMENT OF HOSPITAL MEDICINE PROGRESS NOTE SERVICE DATE: 06/19/2022 SERVICE TIME: 4:29 PM Hospital Medicine/Primary Attending: Dwayne Zaidi MD NIGHT AND WEEKEND COVERAGE: After 7pm please page [phone] CHIEF COMPLAINT: Follow-up for acute left lower [...] bowel sounds normally heard, no mass palpable VIDEO GAME TESTER- cranial nerves 2 to 12 grossly intact, [...] not displayed. BMP: Recent Labs 06/19/22 0513 06/18/226 06/17/22 0510 06/16/22 034 GLUC 115* 112* 84 122* NA 133* 133* 137 139 K 4.4 4.4 4.3 4.4 CHLOR 105 102 107* 104 CO2 23 21* 21* 18* ANION 5* 10 9 17 BUN 22* 25* 27* 35* CREAT 0.94 1.17* 0.99* 1.14* CHEM: Recent Labs 06/19/22 0513 06/18/226 06/17/22 0510 06/16/22 034 ALB -- -- [...] andrew (more content not included)... [facility] 06-18-2022 Note HNO ID: [id number] Author: Emanuel Hull MD Service: General Surgery [...] June 18, 2022 5:39 PM [facility] 06-18-2022 Note HNO ID: [id number] Author: Dwayne Zaidi MD Service: Hospital Medicine Author Type: Physician Type: Progress Notes Filed: 06/18/2022 5:37 PM Note Text: DEPARTMENT OF HOSPITAL MEDICINE PROGRESS NOTE SERVICE DATE: 06/18/2022 SERVICE TIME: 5:35 PM Hospital Medicine/Primary Attending: Dwayne Zaidi MD NIGHT AND WEEKEND COVERAGE: After 7pm please page [phone] CHIEF COMPLAINT: Follow-up for acute left lower [...] bowel sounds normally heard, no mass palpable VIDEO GAME TESTER- cranial nerves 2 to 12 grossly intact, [...] this interval not displayed. BMP: Recent Labs 06/18/2241506/17/2250906/16/22340 GLUC 112* 84 122* NA 133* 137 139 K 4.4 4.3 4.4 CHLOR 102 107* 104 CO2 21* 21* 18* ANION 10 9 17 BUN 25* 27* 35* CREAT 1.17* 0.99* 1.14* CHEM: Recent Labs 06/18/2241506/17/22 0506/16/22340 ALB -- -- 3.2* TPROT -- -- [...] for (more content not included)... [facility] 06-18-2022 Note HNO ID: [id number] Author: Kassidy Mejia RN Service: Care Management [...] with IA. Per notes await PT/OT debbie- frans[place] currently order for therapy, notified. Cm to follow clinical progress. SIGNATURE: Kassidy Mejia RN PATIENT NAME: Mel Castillo DATE: June 18, 2022 TIME: 3:46 PM PAGER/CONTACT #: [phone] [facility] 06-17-2022 Note HNO ID: [id number] Author: Eliza Parikh RN Service: Nursing Author Type: Registered Nurse Type: Nursing Progress Note Filed: 06/17/2022 7:24 PM Note Text: Pt to 4200 via bed. Pt tolerated well. [facility] 06-17-2022 Note HNO ID: [id number] Author: Eliza Parikh RN Service: Nursing Author Type: Registered Nurse Type: Nursing Progress Note Filed: 06/17/2022 4:35 PM Note Text: Report to 4200 Jayne FRAGA [facility] 06-17-2022 Note HNO ID: [id number] Author: Efrain Ivey (Seismograph Recorder) Service: Pharmacy Author Type: Instructional Design Technologist Type: Plan of Care Filed: 06/17/2022 2:16 PM Note Text: PHARMACY MEDICATION REVIEW Patient Name: Mel Castillo : 1940 The following medications were updated within the [facility] medication list: Medications ADDED to [facility] medication list amLODIPine (NORVASC) 10 mg tablet OTHER Yes Yes dexAMETHasone (DECADRON) 4 mg tablet OTHER Yes Yes lisinopril (ZESTRIL, PRINIVIL) 5 mg tablet OTHER Yes Yes RX filled via [facility] and verified with pt. herself Medications CHANGED on [facility] medication list na Medications REMOVED from [facility] medication list na Additional comments: I was able to talk with the pt. about her home medications. She states she takes the 3 RX medications recorded below. These 3 medications were added to her [facility] list. She has finished Paxlovid and a physician stopped Augmentin per pt. interview Required follow up for nursing. Medication history completed by Historian. No nursing follow up required. The below information represents the best possible medication history: Yes Medication history completed by: Instructional Design Technologist: Efrain Ivey (Seismograph Recorder) Source of history: Patient: Reliability of source: Appears reliable, clearly identified: Medication name, Medication dose, Medication route, and Medication frequency and Pharmacy records: Epic e-script [facility] Medication nonadherence identified: No barriers noted Reconciliation completed: No, pharmacist not yet reviewed Patient interested in Bedside Delivery Services or using OP Pharmacy at discharge? No Preferred outpatient pharmacy: [id number] [place] [address] - [address] [phone] Allergies: Percocet [Oxycodone* Itching Prior to Admission [...] once daily. Facility-Administered Medications: None Efrain Ivey ([employer]) phone [phone] 06/17/2022 [facility] 06-17-2022 Note HNO ID: [id number] Author: Ladan Adame RN Service: Care Management [...] 17, 2022 TIME: 12:37 PM PAGER/CONTACT #: [phone] [facility] 06-17-2022 Note HNO ID: [id number] Author: Eliza Parikh RN Service: Nursing Author Type: Registered Nurse Type: Nursing Progress Note Filed: 06/17/2022 10:40 AM Note Text: Echo at bedside [facility] 06-16-2022 Note HNO ID: [id number] Author: Cirilo Alaniz APRN.HERBICIDE SERVICE SALES REPRESENTATIVE Service: Anesthesiology Author Type: Nurse Roll Up Guider Operator Type: Anesthesia Procedure Notes Filed: 06/16/2022 5:04 PM Note Text: ANESTHESIOLOGY PROCEDURE NOTE Airway General Information Procedure Start Time/Medication Administration: 06/16/2022 4:29 PM Patient location during procedure: OR Timeout Performed Pre-procedure: timeout performed Consent Obtained: Yes Patient identity confirmed: arm band and patient Staffing HERBICIDE SERVICE SALES REPRESENTATIVE: Cirilo Alaniz APRN.HERBICIDE SERVICE SALES REPRESENTATIVE Indications and Patient Condition Indications for airway [...] 1 Airway not difficult SIGNATURE: Cirilo Alaniz APRN.HERBICIDE SERVICE SALES REPRESENTATIVE PATIENT NAME: Mel Castillo DATE: June 16, 2022 TIME: 5:03 PM CSN: [id number] [facility] 06-16-2022 Note HNO ID: [id number] Author: Jean Pierre Gamboa RPh Service: Pharmacy [...] patient. Signature: Jean Pierre Gamboa tim Pager/Extension: [phone] [facility] 05-17-2022 History of Present illness Narrative TYSON [...] be seen in the emergency room at [facility] for probable admission for IV antibiotics and airway concern. Patient understands this and will leave shortly. Josiah Barnes MD Findings will be communicated to the referring physician via mail or electronic medical record. documented in this encounter [facility] 05-14-2022 Instructions Jared Velazquez PA-C - [...] Velazquez PA-C documented in this encounter [facility] 05-14-2022 History of Present illness Narrative [...] which included preparing to see the patient, [id number] patient care, completing clinical documentation, performing a medically appropriate examination, counseling and educating the patient/family/caregiver, and ordering medications, tests, or procedures. 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 [facility] Diagnosis Acute bacterial sialadenitis- Primary Bashir's, angina [facility] Diagnosis Localized swelling, mass and lump, neck Swelling, mass, or lump in head and neck [facility] Localized swelling, mass and lump, neck Swelling, mass, or lump in head and neck [facility] Diagnosis Localized swelling, mass and lump, neck- Primary Swelling, mass, or lump in head and neck Localized swelling, mass and lump, neck Swelling, mass, or lump in head and neck [facility] Other specified soft tissue disorders [facility] Diagnosis Localized swelling, mass and lump, neck- Primary Swelling, mass, or lump in head and neck Localized swelling, mass and lump, neck Swelling, mass, or lump in head and neck [facility] Diagnosis Abnormal findings on diagnostic imaging of other specified body structures Pain in left leg [facility] 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[facility] Diagnosis Other specified soft tissue disorders- Primary Other specified soft tissue disorders [facility] Diagnosis Abnormal findings on diagnostic imaging of other specified body structures- Primary Pain in left leg Abnormal findings on diagnostic imaging of other specified body structures Pain in left leg [facility] Diagnosis Peripheral arterial disease (HCC)- Primary Unspecified peripheral vascular disease Right leg pain Pain in soft tissues of limb Peripheral arterial disease (HCC) Unspecified peripheral vascular disease Right leg weakness Muscle weakness (generalized) Atrial fibrillation, unspecified type (HCC) Ischemic leg Unspecified circulatory system disorder [facility] Diagnosis Deep vein thrombosis (DVT) of lower extremity, unspecified chronicity, unspecified laterality, unspecified vein (HCC)- Primary [facility] Diagnosis Atrial fibrillation, unspecified type (HCC) Acute venous embolism and thrombosis of deep vessels of proximal end of right lower extremity (HCC) [facility] Diagnosis Acute deep vein thrombosis (DVT) of iliac vein of right lower extremity (HCC)- Primary PAD (peripheral artery disease) (HCC) Unspecified peripheral vascular disease [facility] Diagnosis Deep vein thrombosis (DVT) of lower extremity, unspecified chronicity, unspecified laterality, unspecified vein (HCC) Atrial fibrillation, unspecified type (HCC) Acute venous embolism and thrombosis of deep vessels of proximal end of right lower extremity (HCC) [facility] Diagnosis Atrial fibrillation, unspecified type (HCC) Acute venous embolism and thrombosis of deep vessels of proximal end of right lower extremity (HCC) [facility] Diagnosis Atrial fibrillation, unspecified type (HCC) Acute venous embolism and thrombosis of deep vessels of proximal end of right lower extremity (HCC) [facility] Diagnosis Paroxysmal atrial fibrillation (HCC) Atrial fibrillation documented in this encounter [facility] note* Diagnosis Atrial fibrillation, unspecified type [...] or 3b CKD (HCC) 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 (HCC) [facility] current use of anticoagulant therapy Nicotine use disorder Tobacco use disorder Abnormal echocardiogram Nonspecific (abnormal) findings on radiological and other examination of other intrathoracic organs Left atrial mass documented in this encounter [facility] note* Diagnosis Retinal detachment, right- Primary Unspecified retinal detachment Vision loss of right eye Unqualified visual loss, one eye Acute intractable headache, unspecified headache type Visual disturbance, subjective Unspecified subjective visual disturbance Vision loss of right eye Unqualified visual loss, one eye Visual disturbance, subjective Unspecified subjective visual disturbance documented in this encounter [facility] note* Diagnosis 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 note* Diagnosis Postoperative eye state- Primary Other states following surgery of eye and adnexa Hemorrhagic choroidal detachment of right eye Hemorrhagic choroidal detachment Pseudophakia, right eye Lens replaced by other means Subluxation of right lens Subluxation of lens documented in this encounter [facility] note* Diagnosis Paroxysmal atrial fibrillation (HCC)- Primary Atrial fibrillation Paroxysmal atrial fibrillation (HCC) Atrial fibrillation documented in this encounter [facility] note* Diagnosis Postoperative eye state Other states following surgery of eye and adnexa Hemorrhagic choroidal detachment of right eye Hemorrhagic choroidal detachment Pseudophakia, right eye Lens replaced by other means Subluxation of right lens Subluxation of lens Hemorrhagic choroidal detachment of right eye Hemorrhagic choroidal detachment [facility]* Diagnosis Post-operative state- Primary Other postprocedural status documented in this encounter [facility] note* Diagnosis Postoperative eye state Other states following surgery of eye and adnexa Hemorrhagic choroidal detachment of right eye Hemorrhagic choroidal detachment Pseudophakia, right eye Lens replaced by other means Subluxation of right lens Subluxation of lens documented in this encounter [facility] note* Diagnosis Aspiration pneumonitis (CMS/HCC) (HCC)- Primary Pneumonitis due to inhalation of food or vomitus Aspiration pneumonitis (CMS/HCC) (HCC) Pneumonitis due to inhalation of food or vomitus Vomiting and diarrhea LORENZA (acute kidney injury) (HCC) documented in this encounter [facility] note* Diagnosis Acute deep vein thrombosis (DVT) of iliac vein of right lower extremity (HCC)- Primary PAD (peripheral artery disease) (HCC) Unspecified peripheral vascular disease documented in this encounter [facility] note* Diagnosis Postoperative eye state Other states following surgery of eye and adnexa Hemorrhagic choroidal detachment of right eye Hemorrhagic choroidal detachment Pseudophakia, right eye Lens replaced by other means Subluxation of right lens Subluxation of lens [facility]* Diagnosis 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 Hemorrhagic choroidal detachment Right retinal detachment Unspecified retinal detachment Postoperative eye state Other states following surgery of eye and adnexa Pseudophakia, right eye Lens replaced by other means Subluxation of right lens Subluxation of lens [facility] noteNo assessment information availableWMercy [facility] Work Phone: Evaluation note* Diagnosis PAD (peripheral artery disease) (HCC)- Primary Unspecified peripheral vascular disease Skin ulcer of toe of right foot, limited to breakdown of skin (HCC) [facility]* Diagnosis Critical limb ischemia of right lower extremity (HCC)- Primary documented in this encounter [facility] note* Diagnosis Pre-op evaluation- Primary Skin ulcer of right great toe (HCC) Critical limb ischemia of right lower extremity (HCC) [facility]* Diagnosis Skin ulcer of toe of right foot, limited to breakdown of skin (HCC)- Primary PAD (peripheral artery disease) (HCC) Unspecified peripheral vascular disease Aftercare following surgery of the circulatory system Aftercare following surgery of the circulatory system, NEC documented in this encounter [facility] note* Diagnosis Skin ulcer of toe of right foot, limited to breakdown of skin (HCC) PAD (peripheral artery disease) (HCC) Unspecified peripheral vascular disease Aftercare following surgery of the circulatory system Aftercare following surgery of the circulatory system, NEC documented in this encounter [facility] note* Diagnosis Aftercare following surgery of the circulatory system- Primary Aftercare following surgery of the circulatory system, NEC PAD (peripheral artery disease) (HCC) Unspecified peripheral vascular disease documented in this encounter [facility] note* Diagnosis 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 note* Diagnosis Right retinal detachment- Primary Unspecified retinal detachment Hemorrhagic choroidal detachment of right eye Hemorrhagic choroidal detachment Pseudophakia, right eye Lens replaced by other means documented in this encounter [facility] note* Diagnosis Acute deep vein thrombosis (DVT) of proximal vein of lower extremity, unspecified laterality (HCC)- Primary documented in this encounter [facility] for referral (narrative)No reason for referral information [facility] Work Phone: Reason for visit Narrative* Imaging (Routine) - Closed Specialty Diagnoses / Procedures Referred By Elvin leyva Referred To Contact Cardiology Diagnoses Paroxysmal atrial fibrillation (HCC) Procedures Transthoracic echocardiogram (TTE) complete with contrast, bubble, strain, and 3D PRN ME ECHO TTHRC R-T 2D W/WOM-MODE COMPL SPEC&COLR D ME TTE W OR WO FOL WCNICK,Jared De La Garza MD [address] [place] [phone] Phone: tel: fax: Referral ID Status Reason Start Date Expiration Date Visits Re quested Visits Authorized [id number] Closed 04/20/2024 04/20/2025 1 1 [facility] for visit Narrative* Auth/Cert (Routine) Specialty Diagnoses / Procedures Referred By Elvin t Referred To Contact Diagnoses Aspiration pneumonitis (CMS/HCC) (HCC) LORENZA (acute kidney injury) (HCC) Vomiting and diarrhea Procedures . Abbi Long, [address] [place] [address] Phone: tel: fax: [facility] [address] [place] [address] Phone: tel: Referral ID Status Reason Start Date Expiration Date Visits Re quested Visits Authorized [id number] [facility] Auth/Cert (Routine) Specialty Diagnoses [...] CATH RS&I CHG AORTOGRAPHY ABDOMINAL SERIALOGRAPHY RS&I ME INTRODUCTION CATHETER AORTA ME REVSC OPN/PRG FEM/POP W/ANGIOPLASTY UNI ME REVSC OPN/PRQ TIB/PAMELA W/ANGIOPLASTY UNI ME REVSC OPN/PRQ TIB/PAMELA W/STNT/ANGIOP SM VSL ME REVSC OPN/PRQ FEM/POP W/STNT/ANGIOP SM VSL AORTOILIAC ANGIOGRAPHY, RIGHT LOWER EXTREMITY ANGIOGRAPHY WITH RUNOFF, POSSIBLE SUPERFICIAL FEMORAL ARTERY/POPLITEAL/TIBIAL ANGIOPLASTY/STENTING Kristyn Blankenship MD [address] [address] Phone: tel: fax: [facility] [address] [place] [address] Phone: tel: Referral ID Status Reason Start Date Expiration Date Visits Re quested Visits Authorized [id number] 1 [facility] Imaging (Routine) - Closed Specialty Diagnoses / Procedures Referred By Elvin leyva Referred To Contact Vascular Surgery / Radiology Diagnoses Skin ulcer of toe of right foot, limited to breakdown of skin (HCC) PAD (peripheral artery disease) (HCC) Aftercare following surgery of the circulatory system Procedures Vascular US lower extremity arterial duplex right with MICHELLE Kristyn Blankenship MD [address] [address] Phone: tel: fax: [facility] Imaging [address] [place] [address] Phone: tel: fax: Referral ID Status Reason Start Date Expiration Date Visits Re quested Visits Authorized [id number] Closed 12/05/2024 12/05/2025 1 1 [facility] Discharge Instructions * Attachments The following [...] operative extremity. Soaks for Open Wounds Dr. aJyla Mcmahan Please remove all dressings so that [...] Documents on File Type Date Recorded Patient Bottom Sprayer Expl anation Power of Glass Products Inspector 04/06/2024 10:04 AM Date Activated Date Inactivated [...] Documents on File Type Date Recorded Patient Bottom Sprayer Expl anation Power of Glass Products Inspector 04/16/2024 1:26 PM Power of Glass Products Inspector 04/06/2024 10:04 AM Healthcare Agents on File [...] Documents on File Type Date Recorded Patient Bottom Sprayer Expl anation Power of Glass Products Inspector 04/16/2024 1:26 PM Power of Glass Products Inspector 04/06/2024 10:04 AM Date Activated Date Inactivated [...] Documents on File Type Date Recorded Patient Bottom Sprayer Expl anation Advance Directive(s) 06/27/2024 12:58 PM [...] Documents on File Type Date Recorded Patient Bottom Sprayer Expl anation Advance Directive(s) 06/27/2024 12:58 PM [...] Documents on File Type Date Recorded Patient Bottom Sprayer Expl anation DNR (Do Not Resuscitate) 07/13/2024 10:35 AM Power of Glass Products Inspector 04/16/2024 1:26 PM Power of Glass Products Inspector 04/06/2024 10:04 AM Date Activated Date Inactivated [...] Documents on File Type Date Recorded Patient Bottom Sprayer Expl anation DNR (Do Not Resuscitate) 07/13/2024 10:35 AM Power of Glass Products Inspector 04/16/2024 1:26 PM Power of Glass Products Inspector 04/06/2024 10:04 AM Date Activated Date Inactivated [...] First Alternate Health Care Agent Nadira Castillo Frdrqkuu-zo-peo First Alternat e Health Care Agent Healthcare Agents on File Name Relationship Healthcare Agent Relationship Communication Damaris DO NOT CALL-TERMINALLY ILL [place] Friend First Alternate Health Care Agent Nadira Castillo Bhjvjrqf-st-uao First Alternat e Health Care Agent Healthcare Agents on File Name Relationship Healthcare Agent Relationship Communication Damaris DO NOT CALL-TERMINALLY ILL [place] Friend First Alternate Health Care Agent Nadira Castillo Ityzqbgy-as-fxw First Alternat e Health Care Agent Date Activated Date Inactivated Comments 08/03/2024 10:17 AM 08/16/2024 4:47 PM Healthcare Agents on File Name Relationship Healthcare Agent Relationship Communication Damaris DO NOT CALL-TERMINALLY ILL [place] Friend First Alternate Health Care Agent Nadira Castillo Ghywfzzi-be-wso First Alternat e Health Care Agent Healthcare Agents on File Name Relationship Healthcare Agent Relationship Communication Damaris DO NOT CALL-TERMINALLY ILL [place] Friend First Alternate Health Care Agent Nadira Castillo Tcdynamg-ef-cvw First Alternat e Health Care Agent Healthcare Agents on File Name Relationship Healthcare Agent Relationship Communication Damaris DO NOT CALL-TERMINALLY ILL [place] Friend First Alternate Health Care Agent Nadira Castillo Xbpzcoar-sp-qxz First Alternat e Health Care Agent Healthcare Agents on File Name Relationship Healthcare Agent Relationshi p Communication Nadira Castillo Rjsyrdki-ff-wdf First Alternat e Health Care Agent Healthcare Agents on File Name Relationship Healthcare Agent Relationshi p Communication Nadira Castillo Raenqhvv-gl-olf First Alternat e Health Care Agent Summary [...] gland swelling Procedures CONSULT TO ENT OFFICE/OUTPATIENT [facility] 60-74 MINUTES Jared Velazquez PA-C [address] [place] [address] Referral ID Status Reason Start Date Expiration Date Visits Requested Visits Authorized [id number] Authorized PCP Requested Referral 2 05/14/2023 1 1 Specialty Diagnoses / Procedures Referred By lEvin leyva Referred To Contact Radiology Diagnoses Localized swelling, mass and lump, neck Procedures CT soft tissue neck w IV contrast Jared Evans MD [address] [place] [phone] Referral ID Status Reason Start Date Expiration Date Visits Re quested Visits Authorized [id number] Closed 03/08/2023 04/07/2023 1 1 Specialty Diagnoses / Procedures Referred By Elvin leyva Referred To Contact Cardiology Diagnoses Other specified soft tissue disorders Procedures Vascular US lower extremity venous duplex left Jared Evans MD [address] [place] [phone] Referral ID Status Reason Start Date Expiration Date V isits Requested Visits Authorized [id number] Pending Review 05/24/2023 05/23/2024 1 1 Specialty Diagnoses / Procedures Referred By Elvin leyva Referred To Contact Radiology Diagnoses Abnormal findings on diagnostic imaging of other specified body structures Pain in left leg Procedures MR tibia fibula left w and wo IV contrast Jared Evans MD [address] [place] [phone] Referral ID Status Reason Start Date Expiration Date Visits Re quested Visits Authorized [id number] Closed 06/01/2023 05/31/2024 1 1 Health Concerns Infection Onset Date Last Indicated Resolved Time COVID-19 Confirmed Comment:First positive per [facility] system 06/02/2022. 06/16/2022 06/16/2022 06/19/2022 5:[address] Chief Complaint and Reason for Visit Chief Complaint Admit Date LABWORK August 20, 2024 5 :22am LABWORK September 03, 2024 5:00am [facility] LAB WORK September 03 8:18am [facility] LAB WORK September 10 5:00am Chief Complaint Admit Date LABWORK August 20, 2024 5 :22am LABWORK September 03, 2024 5:00am [facility] LAB WORK September 03 8:18am [facility] LAB WORK September 10 5:00am [facility] LAB WORK September 17, 2024 4: 00am Chief Complaint Admit Date LABWORK August 20, 2024 5 :22am LABWORK September 03, 2024 5:00am [facility] LAB WORK September 03 8:18am [facility] LAB WORK September 10 5:00am [facility] LAB WORK September 17, 2024 4: 00am [facility] LAB WORK October 08, 2024 5 :00am Additional Source Comments Reason for Visit (unrecogniz ed section and content) Reason Comments Post-op (Ophthalmology) Right Eye Specialty Diagnoses / Procedures Referred By Elvin leyva Referred To Contact HOSP INPATIENT Diagnoses Retinal detachment Acute retinal detachment Retinal detachment Procedures [facility] [place] [address] Referral ID Status Reason Start Date Expiration Date Visits Re quested Visits Authorized [id number] 1 1 Reason Comments Hemorrhagic choroidal detachment [...] gland swelling Procedures CONSULT TO ENT OFFICE/OUTPATIENT [facility] 60-74 MINUTES Jared Velazquez PA-C [address] [place] [address] Referral ID Status Reason Start Date Expiration Date V isits Requested Visits Authorized [id number] Closed PCP Requested Referral 05/14/2022 05/14/2023 1 1 Reason Comments Follow Up Gyant interaction - F/U - attempt made. No answer. Reason Comments Follow Up Phone Call All Clear Specialty Diagnoses / Procedures Referred By Elvin leyva Referred To Contact Radiology Diagnoses Localized swelling, mass and lump, neck Procedures CT soft tissue neck w IV contrast Jared Evans MD [address] [place] [phone] Referral ID Status Reason Start Date Expiration Date Visits Re quested Visits Authorized [id number] Closed 03/08/2023 04/07/2023 1 1 Specialty Diagnoses / Procedures Referred By Elvin leyva Referred To Contact Cardiology Diagnoses Other specified soft tissue disorders Procedures Vascular US lower extremity venous duplex left Jared Evans MD [address] [place] [phone] Referral ID Status Reason Start Date Expiration Date V isits Requested Visits Authorized [id number] Pending Review 05/24/2023 05/23/2024 1 1 Specialty Diagnoses / Procedures Referred By Contac t Referred To Contact Radiology Diagnoses Abnormal findings on diagnostic imaging of other specified body structures Pain in left leg Procedures MR tibia fibula left w and wo IV contrast Jared Evans MD [address] [place] [phone] Referral ID Status Reason Start Date Expiration Date Visits Re quested Visits Authorized [id number] Closed 06/01/2023 05/31/2024 1 1 Reason Comments New Patient Mass left LE Specialty Diagnoses / Procedures Referred By Contac t Referred To Contact Sports Medicine Diagnoses Pain in leg, unspecified Jared Evans MD [address] [place] [phone] [place] [address] Referral ID Status Reason Start Date Expiration Date Visits Re quested Visits Authorized [id number] Closed 07/06/2023 07/05/2024 1 1 Reason Comments Numbness Leg Swelling Specialty Diagnoses / Procedures Referred By Contac t Referred To Contact Diagnoses Right leg pain Peripheral arterial disease (HCC) Right leg weakness Atrial fibrillation, unspecified type (HCC) Procedures . Pratibha Avelar, [address] [place] [address] [phone] Referral ID Status Reason Start Date Expiration Date Visits Re quested Visits Authorized [id number] 1 1 Reason Comments Follow-up 1st follow up RLE me chanical thrombectomy 04/06/24 (Krzysztof) Reason Onset Date Comments Med Refill 04/27/2024 Specialty Diagnoses / Procedures Referred By Contac t Referred To Contact Diagnoses [I63.9] - Cerebral infarction [facility] [address] [place] [address] Referral ID Status Reason Start Date Expiration Date V isits Requested Visits Authorized [id number] New Request 06/20/2024 08/19/2024 Reason Comments Eye Problem Pt reports blurred v ision, dizziness, and headache. LNW 07/04/24 @ 2130. Hx of strokes x 2, HTN, Afib, and right eye retinal detachment. Specialty Diagnoses / Procedures Referred By Elvin t Referred To Contact Diagnoses Retinal detachment, right Vision loss of right eye Procedures . Silvio Peres MD [address] [place] [address] Phone: tel: fax: [facility] [address] [place] [phone] Phone: tel: Referral ID Status Reason Start Date Expiration Date Visits Re quested Visits Authorized [id number] 1 1 Reason Comments Eye Pain Right [...] OF VITREOUS, CHOROIDAL FLUID, PARS PLANA APPROACH [facility] [address] [address] Referral ID Status Reason Start Date Expiration Date Visits Re quested Visits Authorized [id number] 1 1 Reason Comments 1 week post [...] and diarrhea Procedures . Abbi Long DO [address] [place] [address] Phone: tel: fax: [facility] [address] [place] [phone] Phone: tel: Referral ID Status Reason Start Date Expiration Date Visits Re quested Visits Authorized [id number] 1 1 Reason Comments Follow-up 3 month follow up, P AD check ([facility] [place]) Reason Comments Post-op (Ophthalmology) Right Eye 1 marisela h Reason Comments Post op OD Reason Comments Follow-up R leg pain with grea t toe wound-PVR and CTA w runoff 03/2024 Reason Comments Follow-up 1st follow up RLE an juliana, possible SFA/pop/tib angioplasty/stenting 11/22/24 Reason Comments 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; 2nd follow up RLE angio, SFA/pop/tib angioplasty/stenting 11/22/24 ([place] [facility] [phone]) Reason Comments Post-op (Ophthalmology) Right Eye Retinal Detachment OD Eye Crusting OD In the mornings Reason Comments Follow-up INFORMATION SOURCE (unrecogn ized section and content) DATE CREATED AUTHOR 03/13/2020 [facility] DATE CREATED AUTHOR AUTHOR'S ORGANIZ ATION 06/30/2022 [facility] DATE CREATED AUTHOR AUTHOR'S ORGANIZ ATION 07/10/2024 [facility] DATE CREATED AUTHOR AUTHOR'S ORGANIZ ATION 12/14/2024 [facility] DATE CREATED AUTHOR AUTHOR'S ORGANIZ ATION 01/05/2025 [facility] DATE CREATED AUTHOR AUTHOR'S ORGANIZ ATION 03/17/2025 [facility] DATE CREATED AUTHOR AUTHOR'S ORGANIZ ATION 03/30/2025 [facility] Source Comments (unrecognize d section and content) In the event this informatio n is protected by the Federal Confidentiality of Alcohol and Drug Abuse Patient Records regulations: The Federal rules restrict any use of the information to criminally investigate or prosecute any alcohol or drug abuse patient.[facility] the event this information is protected by the Federal Confidentiality of Alcohol and Drug Abuse Patient Records regulations: The Federal rules restrict any use of the information to criminally investigate or prosecute any alcohol or drug abuse patient.[facility] the event this information is protected by the Federal Confidentiality of Alcohol and Drug Abuse Patient Records regulations: The Federal rules restrict any use of the information to criminally investigate or prosecute any alcohol or drug abuse patient.[facility] the event this information is protected by the Federal Confidentiality of Alcohol and Drug Abuse Patient Records regulations: The Federal rules restrict any use of the information to criminally investigate or prosecute any alcohol or drug abuse patient.[facility] the event this information is protected by the Federal Confidentiality of Alcohol and Drug Abuse Patient Records regulations: The Federal rules restrict any use of the information to criminally investigate or prosecute any alcohol or drug abuse patient.[facility] the event this information is protected by the Federal Confidentiality of Alcohol and Drug Abuse Patient Records regulations: The Federal rules restrict any use of the information to criminally investigate or prosecute any alcohol or drug abuse patient.[facility] the event this information is protected by the Federal Confidentiality of Alcohol and Drug Abuse Patient Records regulations: The Federal rules restrict any use of the information to criminally investigate or prosecute any alcohol or drug abuse patient.[facility] the event this information is protected by the Federal Confidentiality of Alcohol and Drug Abuse Patient Records regulations: The Federal rules restrict any use of the information to criminally investigate or prosecute any alcohol or drug abuse patient.[facility] the event this information is protected by the Federal Confidentiality of Alcohol and Drug Abuse Patient Records regulations: The Federal rules restrict any use of the information to criminally investigate or prosecute any alcohol or drug abuse patient.[facility] the event this information is protected by the Federal Confidentiality of Alcohol and Drug Abuse Patient Records regulations: The Federal rules restrict any use of the information to criminally investigate or prosecute any alcohol or drug abuse patient.[facility] the event this information is protected by the Federal Confidentiality of Alcohol and Drug Abuse Patient Records regulations: The Federal rules restrict any use of the information to criminally investigate or prosecute any alcohol or drug abuse patient.[facility] the event this information is protected by the Federal Confidentiality of Alcohol and Drug Abuse Patient Records regulations: The Federal rules restrict any use of the information to criminally investigate or prosecute any alcohol or drug abuse patient.[facility] the event this information is protected by the Federal Confidentiality of Alcohol and Drug Abuse Patient Records regulations: The Federal rules restrict any use of the information to criminally investigate or prosecute any alcohol or drug abuse patient.[facility] the event this information is protected by the Federal Confidentiality of Alcohol and Drug Abuse Patient Records regulations: The Federal rules restrict any use of the information to criminally investigate or prosecute any alcohol or drug abuse patient.[facility] the event this information is protected by the Federal Confidentiality of Alcohol and Drug Abuse Patient Records regulations: The Federal rules restrict any use of the information to criminally investigate or prosecute any alcohol or drug abuse patient.[facility] Hospital[facility] the event this information is protected by the Federal Confidentiality of Alcohol and Drug Abuse Patient Records regulations: The Federal rules restrict any use of the information to criminally investigate or prosecute any alcohol or drug abuse patient.[facility] HospitalIn the event this information is protected by the Federal Confidentiality of Alcohol and Drug Abuse Patient Records regulations: The Federal rules restrict any use of the information to criminally investigate or prosecute any alcohol or drug abuse patient.[facility] HospitalIn the event this information is protected by the Federal Confidentiality of Alcohol and Drug Abuse Patient Records regulations: The Federal rules restrict any use of the information to criminally investigate or prosecute any alcohol or drug abuse patient.[facility] Hospital[facility] the event this information is protected by the Federal Confidentiality of Alcohol and Drug Abuse Patient Records regulations: The Federal rules restrict any use of the information to criminally investigate or prosecute any alcohol or drug abuse patient.[facility] Care Teams (unrecognized sec tion and content) 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 Start Date End Date Pcp, No PCP - General 01/30/22 08/17/22 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 Start Date End Date Pcp, No PCP - General 01/30/22 08/17/22 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 Start Date End Date Jared Evans MD [address] [place] [address] PCP - General Family Medicine 05/18/22 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 Start Date End Date Jared Evans MD [address] [place] [address] PCP - General Family Medicine 05/18/22 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 Start Date End Date Jared Evans MD [address] [place] [address] PCP - General Family Medicine 05/18/22 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 Start Date End Date Jared Evans MD [address] [place] [address] PCP - General 03/06/20 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 Start Date End Date Jared Evans MD [address] [place] [address] PCP - General 03/06/20 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 Start Date End Date Jared Evans MD [address] [place] [address] PCP - General 03/06/20 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 Start Date End Date Jared Evans MD [address] [place] [address] PCP - General 03/06/20 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 Start Date End Date Jared Evans MD [address] [place] [address] PCP - General 03/06/20 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 Start Date End Date Jared Evans MD [address] [place] [address] PCP - General 03/06/20 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 Start Date End Date Jared Evans MD [address] [place] [address] PCP - General 03/06/20 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 Start Date End Date Jared Evans MD [address] [place] [address] PCP - General 03/06/20 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 Start Date End Date Jared Evans MD [address] [place] [address] PCP - General 03/06/20 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 Start Date End Date Jared Evans MD [address] [place] [address] PCP - General 03/06/20 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 Start Date End Date Jared Evans MD [address] [place] [address] PCP - General 03/06/20 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 Start Date End Date Jared Evans MD [address] [place] [address] PCP - General 03/06/20 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 Start Date End Date Jared Evans MD [address] [place] [address] PCP - General 03/06/20 Henok Hernandez PA-C [address] [place] [address] Physician Shuttler Physician Shuttler 04/19/24 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 Start Date End Date Jared Evans MD [address] [place] [address] PCP - General 03/06/20 Henok Hernandez PA-C [address] [place] [address] Physician Shuttler Physician Shuttler 04/19/24 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 Start Date End Date Jared Evans MD [address] [place] [address] PCP - General 03/06/20 Henok Hernandez PA-C [address] [place] [address] Physician Shuttler Physician 04/19/24 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 Start Date End Date Jared Evans MD [address] [place] [address] PCP - General 03/06/20 Henok Hernandez PA-C [address] [place] [address] Physician Shuttler Physician Shuttler 04/19/24 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 Start Date End Date Jared Evans MD [address] [place] [address] PCP - General 03/06/20 Henok Hernandez PA-C [address] [place] [address] Physician Shuttler Physician 04/19/24 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 Start Date End Date Jared Evans MD [address] [place] [address] PCP - General 03/06/20 Henok Lantigua PA-C [address] [address] Physician Shuttler Physician Shuttler 04/19/24 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 Start Date End Date Jared Evans MD [address] [place] [address] PCP - General 03/06/20 Henok Lantigua PA-C [address] [address] Physician Shuttler Physician Shuttler 04/19/24 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 Start Date End Date Jared Evans MD [address] [place] [address] PCP - General Family Medicine 05/18/22 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 Start Date End Date Jared Evans MD [address] [place] [address] PCP - General Family Medicine 05/18/22 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 Start Date End Date Jared Evans MD [address] [place] [address] PCP - General 03/06/20 Henok Lantigua PA-C [address] [address] Physician Shuttler Physician Shuttler 04/19/24 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 Start Date End Date Jared Evans MD [address] [place] [address] PCP - General Family Medicine 05/18/22 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 Start Date End Date Jared Evans MD [address] [place] [address] PCP - General Family Medicine 05/18/22 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 Start Date End Date Jared Evans MD [address] [place] [address] PCP - General Family Medicine 05/18/22 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 Start Date End Date Jared Evans MD [address] [place] [address] PCP - General Family Medicine 05/18/22 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 Start Date End Date Jared Evans MD [address] [place] [address] PCP - General Family Medicine 05/18/22 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 Start Date End Date Jared Evans MD [address] [place] [address] PCP - General 03/06/20 Henok Lantigua PA-C [address] [place] [address] Physician Shuttler Physician Shuttler 04/19/24 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 Start Date End Date Jared Evans MD [address] [place] [address] PCP - General Family Medicine 05/18/22 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 Start Date End Date Jared Evans MD [address] [place] [address] PCP - General Family Medicine 05/18/22 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 Start Date End Date Jared Evans MD [address] [place] [address] PCP - General Family Medicine 05/18/22 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 Start Date End Date Jared Evans MD [address] [place] [address] PCP - General 03/06/20 Henok Lantigua PA-C [address] [address] Physician Shuttler Physician Shuttler 04/19/24 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 Start Date End Date Jared Evans MD [address] [place] [address] PCP - General 03/06/20 Henok Lantigua PA-C [address] [address] Physician Shuttler Physician Shuttler 04/19/24 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 Start Date End Date Jared Evans MD [address] [facility] [place] [address] PCP - General 03/06/20 Henok Lantigua PA-C [address] [address] Physician Shuttler Physician Shuttler 04/19/24 [place] [address] Long Term Facility 08/22/24 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 Start Date End Date Jared Evans MD [address] [place] [address] PCP - General Family Medicine 05/18/22 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 Start Date End Date Jared Evans MD [address] [place], [place] [id number] PCP - General Family Medicine 05/18/22 Team [...] Megan EVERETT Attending Provider Active Sta rt: March 24th, 2025 Team Status: Inactive Member Role Status Dates Megan EVERETT Attending Provider Active Sta rt: October 08, 2024 End: October 08, 2024 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 Start Date End Date Jared Evans MD [address] [place] [address] PCP - General 03/06/20 Henok Lantigua PA-C [address] [address] Physician Shuttler Physician Shuttler 04/19/24 [facility] [address] [place] [address] Long Term Facility 08/22/24 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 Start Date End Date Jared Evans MD [address] [facility] [place] [address] PCP - General 03/06/20 Henok Lantigua PA-C [address] [address] Physician Shuttler Physician Shuttler 04/19/24 [facility] [address] [place] [address] Long Term Facility 08/22/24 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 Start Date End Date Jared Evans MD [address] [facility] [place] [address] PCP - General 03/06/20 Henok Lantigua PA-C [address] [place] [address] Physician Shuttler Physician Shuttler 04/19/24 [facility] [address] [place], [place] [address] Long Term Facility 08/22/24 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 Start Date End Date Megan Montoya [facility] [place] [phone] PCP - General Internal Medicine 12/13/24 Henok Lantigua PA-C [address] [place] [address] Physician Shuttler Physician Shuttler 04/19/24 [facility] [address] [place] [address] Long Term Facility 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/24 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 Start Date End Date Megan Montoya [address] [place] [phone] PCP - General Internal Medicine 12/13/24 Henok Lantigua PA-C [address] [place] [address] Physician Shuttler Physician Shuttler 04/19/24 Kristyn Blankenship MD [address] [place] [address] Consulting Physician Vascular Surgery 12/24/[address] [address] Long Term Facility 08/22/24 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 Start Date End Date Jared Evans MD [address] [place] [address] PCP - General Family Medicine 05/18/22 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 Start Date End Date Jared Evans MD [address] [place] [address] PCP - General Family Medicine 05/18/22 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 Start Date End Date Megan Montoya [address] [place] [phone] PCP - General Internal Medicine 12/13/24 Henok Lantigua PA-C [address] [place] [address] Physician Shuttler Physician Shuttler 04/19/24 Kristyn Blankenship MD [address] [place] [address] Consulting Physician Vascular Surgery 12/24/24 [facility] [address] [place] [address] Long Term Facility 08/22/24 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 Start Date End Date Megan Montoya [address] [place] [address] PCP - General Internal Medicine 12/13/24 Henok Lantigua PA-C [address] [facility] [address] [place] [address] Physician Shuttler Physician Shuttler 04/19/24 Kristyn Blankenship MD [address] [place] [address] Consulting Physician Vascular Surgery 12/24/24 Andre Patel MD [address] [facility] [address] [place] [address] Consulting Physician Hematology and Oncology 03/15/25 [facility] [address] [place] [address] Long Term Facility 08/22/24 Scheduled Active and Recently Administ [...] Davis RN) 0600 (Given - Provider: Norma Davis, RADHA) lisinopril tablet 5 mg 5 mg, Oral, [...] 1 dose 1604 (Given - Provider: Alin Wallis, RADHA - Comment: patient is about to be [...] Alin Wallis RN) PRN Medication Order 04/11/2024 04/12/202404/13/2024 acetaminophen (Tylenol) suppository 650 mg(Linked Group 1) [...] for opioid reversal - MUST notify clinical nutrition manager provider immediately after first dose, may [...] RN)2029 (Given - Provider: Luis Murry, RADHA) 0907 (Given - Provider: Cecilia Lopes RN)1447 (Given - Provider: Cecilia Lopes RN)2106 (Given - Provider: Luis Murry RN) 0936 (Given - Provider: La Avila, RADHA) enoxaparin (Lovenox) syringe 70 mg 70 mg, SubCUTAneous, Every 12 hours, First dose on Maida 07/05/24 at 1500 1738 (Given - Provider: Cecilia Lopes RN) 0406 (Given - Provider: uLis Murry, RADHA)1443 (Given - Provider: Cecilia Lopes RN) 0349 [...] Esther Raya RN)1742 (Given - Provider: Cecilia Lopes, RADHA)2029 (Given - Provider: Luis Murry, RADHA) 0000 (Given - Provider: Luis Murry RN)0406 (Given - Provider: Luis Murry, RADHA)0908 (Given - Provider: Cecilia Lopes, RADHA)1303 (Given - Provider: Cecilia Lopes, RADHA)1627 (Given - Provider: Cecilia Lopes RN)2106 (Given [...] 2 times daily, First dose on Maida 24 at 1355 1523 (Given - Provider: Aurea [...] Arin Jama, RADHA)0922 (Rate/Dose Verify - Provider: De Lopez RN) [...] at 0527 1226 (Given - Provider: Esther Ryaa RN) HYDROmorphone (Dilaudid) injection 0.25 mg(Linked Group [...] Lopes, RADHA)2108 (See Alternative - Provider: Luis Murry RN) [...] RN) 1513 (See Alternative - Provider: Cecilia Lopes RN) ondansetron ODT (Zofran-ODT) disintegrating tablet 4 mg(Linked [...] BE BASED ON THE PRIMARY CLINICAL RECORDS. [facility] [employer] [facility]. provides no warranty or guarantee of the accuracy or completeness of information in this document.
[2025-04-02 08:24] LABS: Potassium 5.3 mmol/L (3.3-5.1)
== END ==
LOC: OLS.SANC 04:00
PROVIDERS: Referring Provider Internal Medicine; Visit Provider Internal Medicine
DX: I48.91 Unspecified atrial fibrillation (principal); I10 Essential (primary) hypertension; J44.9 Chronic obstructive pulmonary disease, unspecified
CPT/HCPCS: 36415; 84132

== ENCOUNTER → 2025-04-04 | Outpatient (REF) | payer MEDICARE, SELFPAY ==
[2025-04-04 08:22] LABS: Hematocrit 32.6 % (37-47); Hemoglobin 10.7 g/dL (12.0-15.0); Mean Corp Hgb Conc 32.8 g/dL (32-36); Mean Corpuscular Volume 91.3 fL (81-99); Mean Platelet Vol. 9.8 fl (6.2-12.0); Platelet Count 259 K/mm3 (150-450); RBC Distribution Width CV 13.6 % (11.6-14.6); RBC Distribution Width SD 46.1 fl (35.1-43.9); Red Blood Count 3.57 M/mm3 (4.2-5.4); White Blood Count 4.2 K/mm3 (4.4-11.0)
[2025-04-04 08:43] LABS: Anion Gap 10 (5-15); BUN 20 mg/dL (4-19); BUN/Creat Ratio 19.9 RATIO (10-20); Calcium,Total 8.9 mg/dL (7.6-11.0); Carbon Dioxide 20.4 mmol/L (21.0-32.0); Chloride 109 mmol/L (98-108); Glucose 87 mg/dL (70-99); Potassium 5.0 mmol/L (3.3-5.1)
== END ==
LOC: OLS.SANC 05:00
PROVIDERS: Visit Provider Internal Medicine
DX: I48.91 Unspecified atrial fibrillation (principal); I10 Essential (primary) hypertension; J44.9 Chronic obstructive pulmonary disease, unspecified
CPT/HCPCS: 36415; 80048; 85027

== ENCOUNTER → 2025-04-29 | Outpatient (REF) | payer MEDICARE, SELFPAY ==
[2025-04-29 07:19] LABS: INR Fingerstick 4.1
[2025-04-29 08:29] LABS: Prothrombin Time (Protime)PT. 39.5 SECONDS (11.7-14.9)
== END ==
LOC: OLS.SANC 04:00
PROVIDERS: Referring Provider Internal Medicine; Visit Provider Internal Medicine
DX: Z79.01 Long term (current) use of anticoagulants (principal)
CPT/HCPCS: 36415; 36416; 85610

== ENCOUNTER → 2025-05-06 05:00 | Outpatient (REF) | payer MEDICARE, SELFPAY ==
--- OUTSIDE RECORDS SUMMARY | 2025-05-06 03:42 | XMS RPT_ITS | CCD ---
Author Organization [facility] Care Team Providers Care Multicultural Manager Name Role Phone Maryuri King Primary Care Provider Jared Evans Primary Care Provider Pcp, No Primary Care Provider UnavailJared Mckinnon MD Primary Care Provider BERNIE BIRD Admitting Unavailable IWONA CHU Attending Unavailable MING OLSON Consulting Unavailable SIM ELIZABETH Attending Unavailable PRIMO DODD Referring Unavailable Jared Evans MD Primary Care Provider Jared Evans MD Primary Care Provider [phone] Henok Hernandez PA-C Unavailable Henok Lantigua PA-C Unavailable Jared Evans MD Primary Care Provider [phone] SYSTEM, PROVIDER NOT IN Referring Unavaila Megan Rice Attending Provider Unavailab Megan Porras Referring Provider Unavailab Megan Porras Attending Provider Unavailab Megan Porras Referring Provider Unavailab TORSTEN Hernandez Consulting Unavailable JARED EVANS Primary Care Unavailable FELICIA COREAS Admitting Unavailable DON EDWARDS Attending Unavailable Megan Montoya Primary Care Provider [phone] Krzysztof BROWNE, Kristyn Unavailable RED HENDERSON Referring [...] Primary Care Unavailable SELF Referring Unavailable EVANS, SMYRNA MILLS N Primary Care Unavailable SELF Referring Unavailable EVANS, SMYRNA MILLS N Primary Care Unavailable MAMMO, SAVANA A Attending Unavailable MAMMO, SAVANA A Referring Unavailable EVANS, JARED N Primary Care Unavailable SELF Referring Unavailable EVANS, JARED N Primary Care Unavailable Dralyn FELIZ, Henok Unavailable Amanda Berry MD, Greg Unavailable DEVIN, RED Admitting Unavailable DEVIN, ERD Attending Unavailable EVANS, JARED Primary Care Unavailable [...] Care Unavailable MARIANA KING Referring Unavailable EVANS, JARED Primary Care Unavailable MARIANA [...] JORDIN Attending Unavailable AMANDA, ANDRE Consulting Unavailable NIEDDRUCKI, PRATIBHA Admitting Unavailable EVANS, JARED Primary Care Unavailable Katsaros OLS, Peter Attending Unavailable Katsaros OLS, Peter Attending Unavailable Katsaros OLS, Peter Referring Unavailable Katsaros, Peter Attending Unavailable Katsaros, Peter [...] Facility (20 sources) Amoxicillin Drug Allergy 0 [place], [place] (20 sources) fluticasone / salmeterol Drug Allergy 0 Intolerance [place], [place] (20 sources) Acetaminophen / oxyCODONE; Translations: [OXYCODONE-ACETAM INOPHEN] Drug Allergy 2 Itching [facility] Other [place] [facility] (9 sources) Ampicillin; Translations: [AMPICILLIN] Drug Allergy 4 Unknown [facility] (13 sources) Amoxicillin-Pot Clavulanate Drug Allergy 5 [facility] (1 source) FLUTICASONE PROPION-SALMETERO L; Translations: [FLUTICASONE PROPION-SALMETERO L] Propensity to adverse reactions to drug (disorder) 0 [facility] Repository Medications Current Medications Medication Drug [...] for pain for up to 3 days. [id number] actuat albuterol 0.09 mg/actuat metered dose [...] 06-28-2022 take 2 tablets by mo uth twice daily, then take 1 tablet by [...] on above: Take 2 tablets by mo [facility] every 12 hours for 3 days, [...] Comment on above: Take 1 tablet by [facility] every 12 hours for 7 days. 0.5 [...] for dry skin. Active lactobacillus rhamnosus gg [id number] unt oral capsule (2 sources) Start: 06-29-20 End: 07-29-19 23 take 1 capsule by mouth once daily lactobacillus rhamnosus (CULTURELLE) 10 billion cell capsule Take 1 capsule by mouth once daily. 30 capsule 0 06/29/2022 07/29/2022 Active Comment on above: Take 1 capsule by [facility] once daily. lidocaine 0.04 mg/mg medicated patch (11 sources) Antiarrhythmic, Amide Local Anesthetic Start: 07-18-19 25 apply 1 dose transdermal route once daily [...] Drop ( AK-DILATE, KEL-SYNEPHRINE) polyethylene glycol 3350 [id number] mg powder for oral solution (11 sources) [...] lower extremity (HCC) Take as directed by [facility] (90 tablets = 90 day [...] lower extremity (HCC) Take as directed by [facility] (45 tablets= 30 day supply) 45 tablet 1 04/27/2024 Active Start: 04-09-2024 7.5 mg, Oral, Once Warfarin, On Maida 04/12/24 at 1700, For 1 dose Start: 04-07-2024 warfarin (Coum jay jay) 5 MG tablet Take 1 tablet (5mg) on 04/13 in the evening Take 1.5 tablets (7.5mg) on 04/14 Take 1 tablet (5mg) on 04/15 Follow up with [facility] pharmacy for further dosing 30 tablet 04/13/2024 [...] sodium chloride 0.9 % 100 mL IVPB (Add-Emerson) (2 sources) Start: End: take 3000 mg intravenously every six hours 3,000 mg, IntraVENous, at 200 mL/hr, Administer over 30 Minutes, Every 6 hours, First dose on Tue08/03/24 at 1200, For 18 doses, ADD-Emerson bag, Suspected Indication (Select all that apply): [...] Anesthetic Start: 03-07-2020 End: 03-07-2020 lidocaine-EPINEPHrine 1 percent-1:[id number] injection 8 mL ergocalciferol 1.25 mg oral capsule (3 sources) Provitamin D2 Compound End: 07-05-2024 take 1 capsule by mouth every week ergocalciferol (Vitamin D2) 1.25 MG (09436 UT) capsule Take 1.25 mg by mouth [...] (80 Units/kg 72.3 kg), IntraVENous, Once, On Tu04/03/24 at 2235, For 1 dose, Initial one [...] Comment on above: Take 1 tablet by [facility] twice daily before meals (0600/1600). 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] Onset: 2 Episodic [...] sources) Long-term current use of anticoagulant; Translations: [halfway (current) use of anticoagulants] Onset: 0 03-07-2020 Episodic Other aftercare (2 sources) Encounter for surgical aftercare following surgery on the circulatory system; Translations: [Encounter for surgical aftercare following surgery on the circulatory system] Onset: 5 Episodic Other aftercare (1 source) Other 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 float 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; Translations: [Other fpc (current) drug therapy] Onset: 5 Episodic Other [...] right foot, limited to breakdown of skin ([facility]) 12-05-2024 Unclassified (4 sources) PAD (peripheral artery disease) ([facility]) 12-05-2024 Viral infection (20 sources) Disease caused by 2019-nCoV; Translations: [COVID-19] Onset: 2 06-16-2022 Episodic Results Test Name Value Interpretation Reference Range Facility Prothrombin Time w/INRon INR Coag (PPP) [Relative time] 3.9 {INR} Normal [facility] Comment on above: Order Comment: YINA RSTICK CONFIRMATION Performed By: #### L 9200.0000 #### [facility] [address] [place], [address] PT Coag (PPP) [Time] 39.5 s High 11.7-14.9 [facility] Comment on above: Order Comment: EBENEZERE RSTICK CONFIRMATION Performed By: #### L 9200.0000 #### [facility] [address] [place], [address] Protime w/INR Fingerstickon 04-29-2025 INR Coag (PPP) [Relative time] 4.1 {INR} Invalid Interpretation Code [facility] Comment on above: Result Comment: Crit ical Value > 4.0 Performed By: #### L 9200.0000 #### [facility] [address] [place], [address] Protime Coagsen 41.7 SEC High 11.7-14.9 [facility] Comment on above: Performed By: #### L 9200.0000 #### [facility] [address] [place], [address] Basic Metabolic Profile (BMP )on 04-04-2025 BUN/CRE 19.9 RATIO Normal 10-20 [facility] Comment on above: Order Comment: 104-1 Performed By: #### L 300.3900 #### [facility] [address] [place], [address] Calcium [Mass/Vol] 8.9 mg/dL Normal 7.6-11.0 [facility] Comment on above: Order Comment: 104-1 Performed By: #### L 300.3900 #### [facility] [address] [place], [address] Chloride [Moles/Vol] 109 mmol/L High 98-108 [facility] Comment on above: Order Comment: 104-1 Performed By: #### L 300.3900 #### [facility] [address] [place], [address] CO2 [Moles/Vol] 20.4 mmol/L Low 21.0-32.0 [facility] Comment on above: Order Comment: 104-1 Performed By: #### L 300.3900 #### [facility] [address] [place], [address] Creatinine [Mass/Vol] 0.98 mg/dL Normal 0.70-1.20 [facility] Comment on above: Order Comment: 104-1 Performed By: #### L 300.3900 #### [facility] [address] [place], [address] GAP 10 Normal 5-15 [facility] Comment on above: Order Comment: 104-1 Performed By: #### L 300.3900 #### [facility] [address] [place], [address] GFR/1.73 sq M.predicted among non-blacks MDRD (S/P/Bld) [Vol rate/Area] 56 mL/min/{1.73_m2} Low >60 [facility] Comment on above: Order Comment: 104- Result Comment: mL/m in/1.73m2 CKD-EPI Creatinine Equation (2020) Performed By: #### L 300.3900 #### [facility] [address] [place], [address] Glucose [Mass/Vol] 87 mg/dL Normal 70-99 [facility] Comment on above: Order Comment: 104-1 Performed By: #### L 300.3900 #### [facility] [address] [place], [address] Potassium [Moles/Vol] 5.0 mmol/L Normal 3.3-5.1 [facility] Comment on above: Order Comment: 104-1 Performed By: #### L 300.3900 #### [facility] [address] [place], [address] Sodium [Moles/Vol] 139 mmol/L Normal 133-145 [facility] Comment on above: Order Comment: 104-1 Performed By: #### L 300.3900 #### [facility] [address] [place], [address] Urea nitrogen [Mass/Vol] 20 mg/dL High 4-19 [facility] Comment on above: Order Comment: 104-1 Performed By: #### L 300.3900 #### [facility] [address] [place], [address] CBC-Complete Blood Cnt No Di ffon 04-04-2025 Erythrocyte distribution width (RBC) [Ratio] 13.6 % Normal 11.6-14.6 [facility] Comment on above: Order Comment: 104-1 Performed By: #### L 300.3900 #### [facility] [address] [place], [address] Hematocrit (Bld) [Volume fraction] 32.6 % Low 37-47 [facility] Comment on above: Order Comment: 104-1 Performed By: #### L 300.3900 #### [facility] [address] [place], [address] Hemoglobin (Bld) [Mass/Vol] 10.7 g/dL Low 12.0-15.0 [facility] Comment on above: Order Comment: 104-1 Performed By: #### L 300.3900 #### [facility] [address] [place], [address] MCH (RBC) [Entitic mass] 30.0 pg Normal 27.0-32.0 [facility] Comment on above: Order Comment: 104-1 Performed By: #### L 300.3900 #### [facility] [address] [place], [address] MCHC (RBC) [Mass/Vol] 32.8 g/dL Normal 32-36 [facility] Comment on above: Order Comment: 104-1 Performed By: #### L 300.3900 #### [facility] [address] [place], [address] MCV (RBC) [Entitic vol] 91.3 fL Normal 81-99 [facility] Comment on above: Order Comment: 104-1 Performed By: #### L 300.3900 #### [facility] [address] [place], [address] Platelet mean volume (Bld) [Entitic vol] 9.8 fL Normal 6.2-12.0 [facility] Comment on above: Order Comment: 104-1 Performed By: #### L 300.3900 #### [facility] [address] [place], [address] Platelets (Bld) [#/Vol] 259 10*3/uL Normal 150-450 [facility] Comment on above: Order Comment: 104-1 Performed By: #### L 300.3900 #### [facility] [address] [place], [address] RBC (Bld) [#/Vol] 3.57 10*6/uL Low 4.2-5.4 [facility] Comment on above: Order Comment: 104-1 Performed By: #### L 300.3900 #### [facility] [address] [place], [address] RDW SD 46.1 fl High 35.1-43.9 [facility] Comment on above: Order Comment: 104-1 Performed By: #### L 300.3900 #### [facility] [address] [place], [address] WBC (Bld) [#/Vol] 4.2 10*3/uL Low 4.4-11.0 [facility] Comment on above: Order Comment: 104-1 Performed By: #### L 300.3900 #### [facility] [address] [place], [address] Potassiumon 04-02-2025 Potassium [Moles/Vol] 5.3 mmol/L High 3.3-5.1 [facility] Comment on above: Order Comment: 104-1 Performed By: #### L 300.3900 #### [facility] [address] [place], [address] Basic Metabolic Profile (BMP )on 03-28-2025 BUN/CRE 17.4 RATIO Normal 10-20 [facility] Comment on above: Order Comment: 104-1 Performed By: #### L 300.3900 #### [facility] [address] [place], [address] Calcium [Mass/Vol] 9.0 mg/dL Normal 7.6-11.0 [facility] Comment on above: Order Comment: 104-1 Performed By: #### L 300.3900 #### [facility] [address] [place], [address] Chloride [Moles/Vol] 108 mmol/L Normal 98-108 [facility] Comment on above: Order Comment: 104-1 Performed By: #### L 300.3900 #### [facility] [address] [place], [address] CO2 [Moles/Vol] 21.1 mmol/L Normal 21.0-32.0 [facility] Comment on above: Order Comment: 104-1 Performed By: #### L 300.3900 #### [facility] [address] [place], [address] Creatinine [Mass/Vol] 0.99 mg/dL Normal 0.70-1.20 [facility] Comment on above: Order Comment: 104-1 Performed By: #### L 300.3900 #### [facility] [address] [place], [address] GAP 9 Normal 5-15 [facility] Comment on above: Order Comment: 104-1 Performed By: #### L 300.3900 #### [facility] [address] [place], [address] GFR/1.73 sq M.predicted among non-blacks MDRD (S/P/Bld) [Vol rate/Area] 56 mL/min/{1.73_m2} Low >60 [facility] Comment on above: Order Comment: 104-1 Result Comment: mL/m in/1.73m2 CKD-EPI Creatinine Equation (2020) Performed By: #### L 300.3900 #### [facility] [address] [place], [address] Glucose [Mass/Vol] 88 mg/dL Normal 70-99 [facility] Comment on above: Order Comment: 104-1 Performed By: #### L 300.3900 #### [facility] [address] [place], [address] Potassium [Moles/Vol] 5.2 mmol/L High 3.3-5.1 [facility] Comment on above: Order Comment: 104-1 Performed By: #### L 300.3900 #### [facility] [address] [place], [address] Sodium [Moles/Vol] 138 mmol/L Normal 133-145 [facility] Comment on above: Order Comment: 104-1 Performed By: #### L 300.3900 #### [facility] [address] [place], [address] Urea nitrogen [Mass/Vol] 17 mg/dL Normal 4-19 [facility] Comment on above: Order Comment: 104-1 Performed By: #### L 300.3900 #### [facility] [address] [place], [address] CBC-Complete Blood Cnt No Di ffon 03-28-2025 Erythrocyte distribution width (RBC) [Ratio] 13.7 % Normal 11.6-14.6 [facility] Comment on above: Order Comment: 104-1 Performed By: #### L 300.3900 #### [facility] [address] [place], [address] Hematocrit (Bld) [Volume fraction] 31.6 % Low 37-47 [facility] Comment on above: Order Comment: 104-1 Performed By: #### L 300.3900 #### [facility] [address] [place], [address] Hemoglobin (Bld) [Mass/Vol] 10.3 g/dL Low 12.0-15.0 [facility] Comment on above: Order Comment: 104-1 Performed By: #### L 300.3900 #### [facility] [address] [place], [address] MCH (RBC) [Entitic mass] 29.7 pg Normal 27.0-32.0 [facility] Comment on above: Order Comment: 104-1 Performed By: #### L 300.3900 #### [facility] [address] [place], [address] MCHC (RBC) [Mass/Vol] 32.6 g/dL Normal 32-36 [facility] Comment on above: Order Comment: 104-1 Performed By: #### L 300.3900 #### [facility] [address] [place], [address] MCV (RBC) [Entitic vol] 91.1 fL Normal 81-99 [facility] Comment on above: Order Comment: 104-1 Performed By: #### L 300.3900 #### [facility] [address] [place], [address] Platelet mean volume (Bld) [Entitic vol] 10.0 fL Normal 6.2-12.0 [facility] Comment on above: Order Comment: 104-1 Performed By: #### L 300.3900 #### [facility] [address] [place], [address] Platelets (Bld) [#/Vol] 265 10*3/uL Normal 150-450 [facility] Comment on above: Order Comment: 104-1 Performed By: #### L 300.3900 #### [facility] [address] [place], [address] RBC (Bld) [#/Vol] 3.47 10*6/uL Low 4.2-5.4 [facility] Comment on above: Order Comment: 104-1 Performed By: #### L 300.3900 #### [facility] [address] [place], [address] RDW SD 45.8 fl High 35.1-43.9 [facility] Comment on above: Order Comment: 104-1 Performed By: #### L 300.3900 #### [facility] [address] [place], [address] WBC (Bld) [#/Vol] 5.3 10*3/uL Normal 4.4-11.0 [facility] Comment on above: Order Comment: 104-1 Performed By: #### L 300.3900 #### [facility] [address] [place], [address] Prothrombin Time w/INRon INR Coag (PPP) [Relative time] 2.2 {INR} Normal [facility] Comment on above: Order Comment: 104-1 Performed By: #### L 300.3900 #### [facility] [address] [place], [address] PT Coag (PPP) [Time] 24.5 s High 11.7-14.9 [facility] Comment on above: Order Comment: 104-1 Performed By: #### L 300.3900 #### [facility] [address] [place], [address] Progress Noteon 03-15-2025 Progress Note Normal [facility] Protime w/INR Fingerstickon 03-04-2025 INR Coag (PPP) [Relative time] 2.3 {INR} Normal [facility] Comment on above: Result Comment: Crit ical Value > 4.0 Performed By: #### L 9200.0000 #### [facility] [address] [place], [address] Protime Coagsen 24.7 SEC High 11.7-14.9 [facility] Comment on above: Performed By: #### L 9200.0000 #### [facility] [address] [place], [id number] 36on 02-27-2025 36 Letter mailed to patient Normal [facility] 36on 02-26-2025 36 Normal [facility] Protime w/INR Fingerstickon 02-25-2025 INR Coag (PPP) [Relative time] 2.1 {INR} Normal [facility] Comment on above: Result Comment: Crit ical Value > 4.0 Performed By: #### L 300.3900 #### [facility] [address] [place], [address] Protime Coagsen 23.3 SEC High 11.7-14.9 [facility] Comment on above: Performed By: #### L 300.3900 #### [facility] [address] [place], [address] Basic Metabolic Profile (BMP )on 02-18-2025 BUN/CRE 22.7 RATIO High 10-20 [facility] Comment on above: Performed By: #### L 300.3900 #### [facility] [address] [place], [id number] Calcium [Mass/Vol] 9.2 mg/dL Normal 7.6-11.0 [facility] Comment on above: Performed By: #### L 300.3900 #### [facility] [address] [place], [address] Chloride [Moles/Vol] 108 mmol/L Normal 98-108 [facility] Comment on above: Performed By: #### L 300.3900 #### [facility] [address] [place], [id number] CO2 [Moles/Vol] 21.6 mmol/L Normal 21.0-32.0 [facility] Comment on above: Performed By: #### L 300.3900 #### [facility] [address] [place], [address] Creatinine [Mass/Vol] 1.03 mg/dL Normal 0.70-1.20 [facility] Comment on above: Performed By: #### L 300.3900 #### [facility] [address] [place], [address] GAP 9 Normal 5-15 [facility] Comment on above: Performed By: #### L 300.3900 #### [facility] [address] [place], [address] GFR/1.73 sq M.predicted among non-blacks MDRD (S/P/Bld) [Vol rate/Area] 53 mL/min/{1.73_m2} Low >60 [facility] Comment on above: Result Comment: mL/m in/1.73m2 CKD-EPI Creatinine Equation (2020) Performed By: #### L 300.3900 #### [facility] [address] [place], [address] Glucose [Mass/Vol] 91 mg/dL Normal 70-99 [facility] Comment on above: Performed By: #### L 300.3900 #### [facility] [address] [place], [address] Potassium [Moles/Vol] 5.2 mmol/L High 3.3-5.1 [facility] Comment on above: Performed By: #### L 300.3900 #### [facility] [address] [place], [address] Sodium [Moles/Vol] 138 mmol/L Normal 133-145 [facility] Comment on above: Performed By: #### L 300.3900 #### [facility] [address] [place], [address] Urea nitrogen [Mass/Vol] 23 mg/dL High 4-19 [facility] Comment on above: Performed By: #### L 300.3900 #### [facility] [address] [place], [address] CBC-Complete Blood Cnt No Di ffon 02-18-2025 Erythrocyte distribution width (RBC) [Ratio] 14.0 % Normal 11.6-14.6 [facility] Comment on above: Performed By: #### L 300.3900 #### [facility] [address] [place], [address] Hematocrit (Bld) [Volume fraction] 31.6 % Low 37-47 [facility] Comment on above: Performed By: #### L 300.3900 #### [facility] [address] [place], [address] Hemoglobin (Bld) [Mass/Vol] 10.2 g/dL Low 12.0-15.0 [facility] Comment on above: Performed By: #### L 300.3900 #### [facility] [address] [place], [address] MCH (RBC) [Entitic mass] 30.0 pg Normal 27.0-32.0 [facility] Comment on above: Performed By: #### L 300.3900 #### [facility] [address] [place], [address] MCHC (RBC) [Mass/Vol] 32.3 g/dL Normal 32-36 [facility] Comment on above: Performed By: #### L 300.3900 #### [facility] [address] [place], [address] MCV (RBC) [Entitic vol] 92.9 fL Normal 81-99 [facility] Comment on above: Performed By: #### L 300.3900 #### [facility] [address] [place], [address] Platelet mean volume (Bld) [Entitic vol] 9.9 fL Normal 6.2-12.0 [facility] Comment on above: Performed By: #### L 300.3900 #### [facility] [address] [place], [address] Platelets (Bld) [#/Vol] 257 10*3/uL Normal 150-450 [facility] Comment on above: Performed By: #### L 300.3900 #### [facility] [address] [place], [address] RBC (Bld) [#/Vol] 3.40 10*6/uL Low 4.2-5.4 [facility] Comment on above: Performed By: #### L 300.3900 #### [facility] [address] [place], [address] RDW SD 47.2 fl High 35.1-43.9 [facility] Comment on above: Performed By: #### L 300.3900 #### [facility] [address] [place], [address] WBC (Bld) [#/Vol] 4.3 10*3/uL Low 4.4-11.0 [facility] Comment on above: Performed By: #### L 300.3900 #### [facility] [address] [place], [address] Prothrombin Time w/INRon INR Coag (PPP) [Relative time] 2.5 {INR} Normal [facility] Comment on above: Performed By: #### L 300.3900 #### [facility] [address] [place], [address] PT Coag (PPP) [Time] 27.6 s High 11.7-14.9 [facility] Comment on above: Performed By: #### L 300.3900 #### [facility] [address] [place], [address] Basic Metabolic Profile (BMP )on 02-15-2025 BUN/CRE 18.4 RATIO Normal 10-20 [facility] Comment on above: Order Comment: 104.1 Performed By: #### L 9200.0000 #### [facility] [address] [place], [address] Calcium [Mass/Vol] 9.4 mg/dL Normal 7.6-11.0 [facility] Comment on above: Order Comment: 104.1 Performed By: #### L 9200.0000 #### [facility] [address] [place], [address] Chloride [Moles/Vol] 107 mmol/L Normal 98-108 [facility] Comment on above: Order Comment: 104.1 Performed By: #### L 9200.0000 #### [facility] [address] [place], [address] CO2 [Moles/Vol] 16.1 mmol/L Low 21.0-32.0 [facility] Comment on above: Order Comment: 104.1 Performed By: #### L 9200.0000 #### [facility] [address] [place], [address] Creatinine [Mass/Vol] 1.12 mg/dL Normal 0.70-1.20 [facility] Comment on above: Order Comment: 104.1 Performed By: #### L 9200.0000 #### [facility] [address] [place], [address] GAP 11 Normal 5-15 [facility] Comment on above: Order Comment: 104.1 Performed By: #### L 9200.0000 #### [facility] [address] [place], [address] GFR/1.73 sq M.predicted among non-blacks MDRD (S/P/Bld) [Vol rate/Area] 48 mL/min/{1.73_m2} Low >60 [facility] Comment on above: Order Comment: 104.1 Result Comment: mL/m in/1.73m2 CKD-EPI Creatinine Equation (2020) Performed By: #### L 9200.0000 #### [facility] [address] [place], [address] Glucose [Mass/Vol] 90 mg/dL Normal 70-99 [facility] Comment on above: Order Comment: 104.1 Performed By: #### L 9200.0000 #### [facility] [address] [place], [address] Potassium [Moles/Vol] 6.1 mmol/L Invalid Interpretation Code 3.3-5.1 [facility] Comment on above: Order Comment: 104.1 Result Comment: Crit ical result called 02/15/2025-09:30 by Cirilo Bird to Shannen Christianson. Hemolysis present, Results??could be affected. ?? Critical Result(s) Called at: by:??Results read back by same. Performed By: #### L 9200.0000 #### [facility] [address] [place], [address] Sodium [Moles/Vol] 134 mmol/L Normal 133-145 [facility] Comment on above: Order Comment: 104.1 Performed By: #### L 9200.0000 #### [facility] [address] [place], [address] Urea nitrogen [Mass/Vol] 21 mg/dL High 4-19 [facility] Comment on above: Order Comment: 104.1 Performed By: #### L 9200.0000 #### [facility] [address] [place], [address] CBC-Complete Blood Cnt No Di ffon 02-15-2025 Erythrocyte distribution width (RBC) [Ratio] 13.8 % Normal 11.6-14.6 [facility] Comment on above: Order Comment: 104.1 Performed By: #### L 500.2500, L100.0500 #### [facility] [address] [place], [address] Hematocrit (Bld) [Volume fraction] 34.2 % Low 37-47 [facility] Comment on above: Order Comment: 104.1 Performed By: #### L 500.2500, L100.0500 #### [facility] [address] [place], [address] Hemoglobin (Bld) [Mass/Vol] 10.8 g/dL Low 12.0-15.0 [facility] Comment on above: Order Comment: 104.1 Performed By: #### L 500.2500, L100.0500 #### [facility] [address] [place], [address] MCH (RBC) [Entitic mass] 30.4 pg Normal 27.0-32.0 [facility] Comment on above: Order Comment: 104.1 Performed By: #### L 500.2500, L100.0500 #### [facility] [address] [place], [address] MCHC (RBC) [Mass/Vol] 31.6 g/dL Low 32-36 [facility] Comment on above: Order Comment: 104.1 Performed By: #### L 500.2500, L100.0500 #### [facility] [address] [place], [address] MCV (RBC) [Entitic vol] 96.3 fL Normal 81-99 [facility] Comment on above: Order Comment: 104.1 Performed By: #### L 500.2500, L100.0500 #### [facility] [address] [place], [address] Platelet mean volume (Bld) [Entitic vol] 10.4 fL Normal 6.2-12.0 [facility] Comment on above: Order Comment: 104.1 Performed By: #### L 500.2500, L100.0500 #### [facility] [address] [place], [address] Platelets (Bld) [#/Vol] 239 10*3/uL Normal 150-450 [facility] Comment on above: Order Comment: 104.1 Performed By: #### L 500.2500, L100.0500 #### [facility] [address] [place], [address] RBC (Bld) [#/Vol] 3.55 10*6/uL Low 4.2-5.4 [facility] Comment on above: Order Comment: 104.1 Performed By: #### L 500.2500, L100.0500 #### [facility] [address] [place], [address] RDW SD 49.1 fl High 35.1-43.9 [facility] Comment on above: Order Comment: 104.1 Performed By: #### L 500.2500, L100.0500 #### [facility] [address] [place], [address] WBC (Bld) [#/Vol] 4.3 10*3/uL Low 4.4-11.0 [facility] Comment on above: Order Comment: 104.1 Performed By: #### L 500.2500, L100.0500 #### [facility] [address] [place], [address] Prothrombin Time w/INRon INR Normal [facility] Comment on above: Order Comment: 104-1 Result Comment: EBENEZER VASQUEZ Performed By: #### L 9200.0000 #### [facility] [address] [place], [address] PROTIME Normal 11.7-14.9 [facility] Comment on above: Order Comment: 104-1 Result Comment: FING ERSTICK Performed By: #### L 9200.0000 #### [facility] [address] [place], [address] Protime w/INR Fingerstickon 02-11-2025 INR Coag (PPP) [Relative time] 2.5 {INR} Normal [facility] Comment on above: Result Comment: Crit ical Value > 4.0 Performed By: #### L 9200.0000 #### [facility] [address] [place], [address] Protime Coagsen 26.4 SEC High 11.7-14.9 [facility] Comment on above: Performed By: #### L 9200.0000 #### [facility] [address] [place], [address] Protime w/INR Fingerstickon 02-07-2025 INR Coag (PPP) [Relative time] 2.2 {INR} Normal [facility] Comment on above: Result Comment: Crit ical Value > 4.0 Performed By: #### L 9200.0000 #### [facility] [address] [place], [address] Protime Coagsen 23.6 SEC High 11.7-14.9 [facility] Comment on above: Performed By: #### L 9200.0000 #### [facility] [address] [place], [address] Protime w/INR Fingerstickon 02-04-2025 INR Coag (PPP) [Relative time] 3.6 {INR} Normal [facility] Comment on above: Result Comment: Crit ical Value > 4.0 Performed By: #### L 9200.0000 #### [facility] [address] [place], [address] Protime Coagsen 36.4 SEC High 11.7-14.9 [facility] Comment on above: Performed By: #### L 9200.0000 #### [facility] [address] [place], [address] Prothrombin Time w/INRon INR Coag (PPP) [Relative time] 3.3 {INR} Normal [facility] Comment on above: Order Comment: 104.1 Performed By: #### L 9200.0000 #### [facility] [address] [place], [address] PT Coag (PPP) [Time] 34.2 s High 11.7-14.9 [facility] Comment on above: Order Comment: 104.1 Performed By: #### L 9200.0000 #### [facility] [address] [place], [address] Protime w/INR Fingerstickon 01-28-2025 INR Coag (PPP) [Relative time] 2.8 {INR} Normal [facility] Comment on above: Result Comment: Crit ical Value > 4.0 Performed By: #### L 9200.0000 #### [facility] [address] [place], [address] Protime Coagsen 29.1 SEC High 11.7-14.9 [facility] Comment on above: Performed By: #### L 9200.0000 #### [facility] [address] [place], [address] Protime w/INR Fingerstickon 01-25-2025 INR Coag (PPP) [Relative time] 3.4 {INR} Normal [facility] Comment on above: Result Comment: Crit ical Value > 4.0 Performed By: #### L 9200.0000 #### [facility] [address] [place], [address] Protime Coagsen 34.5 SEC High 11.7-14.9 [facility] Comment on above: Performed By: #### L 9200.0000 #### [facility] [address] [place], [address] Prothrombin Time w/INRon INR Coag (PPP) [Relative time] 2.8 {INR} Normal [facility] Comment on above: Order Comment: 104-1 Performed By: #### L 300.3900 #### [facility] [address] [place], [address] PT Coag (PPP) [Time] 30.5 s High 11.7-14.9 [facility] Comment on above: Order Comment: 104-1 Performed By: #### L 300.3900 #### [facility] [address] [place], [address] Prothrombin Time w/INRon INR Coag (PPP) [Relative time] 2.5 {INR} Normal [facility] Comment on above: Order Comment: 104.1 Performed By: #### L 9200.0000 #### [facility] [address] [place], [address] PT Coag (PPP) [Time] 27.1 s High 11.7-14.9 [facility] Comment on above: Order Comment: 104.1 Performed By: #### L 9200.0000 #### [facility] [address] [place], [address] Prothrombin Time w/INRon INR Coag (PPP) [Relative time] 2.4 {INR} Normal [facility] Comment on above: Order Comment: DID Kareem STRANGE TWICE, BOTH TIMES GOT A 'NO CLOT DETECTED'MESSAGE, SO VA A VENOUS SAMPLE. SPOKE WITH NURSE TINEO Performed By: #### L 9200.0000 #### [facility] [address] [place], [address] PT Coag (PPP) [Time] 26.9 s High 11.7-14.9 [facility] Comment on above: Order Comment: DID Kareem STRANGE TWICE, BOTH TIMES GOT A 'NO CLOT DETECTED'MESSAGE, SO VA A VENOUS SAMPLE. SPOKE WITH NURSE TINEO Performed By: #### L 9200.0000 #### [facility] [address] [place], [address] Protime w/INR Fingerstickon 01-17-2025 INR Coag (PPP) [Relative time] 1.9 {INR} Normal [facility] Comment on above: Result Comment: Crit ical Value > 4.0 Performed By: #### L 9200.0000 #### [facility] [address] [place], [address] Protime Coagsen 20.8 SEC High 11.7-14.9 [facility] Comment on above: Performed By: #### L 9200.0000 #### [facility] [address] [place], [address] Protime w/INR Fingerstickon 01-16-2025 INR Coag (PPP) [Relative time] 1.5 {INR} Normal [facility] Comment on above: Result Comment: Crit ical Value > 4.0 Performed By: #### L 9200.0000 #### [facility] [address] [place], [address] Protime Coagsen 17.2 SEC High 11.7-14.9 [facility] Comment on above: Performed By: #### L 9200.0000 #### [facility] [address] [place], [address] Prothrombin Time w/INRon INR Coag (PPP) [Relative time] 1.2 {INR} Normal [facility] Comment on above: Performed By: #### L 9200.0000 #### [facility] [address] [place], [address] PT Coag (PPP) [Time] 15.4 s High 11.7-14.9 [facility] Comment on above: Performed By: #### L 9200.0000 #### [facility] [address] [place], [address] 36on 01-08-2025 36 Normal [facility] Basic Metabolic Profile (BMP )on 01-07-2025 BUN/CRE 17.7 RATIO Normal 10-20 [facility] Comment on above: Order Comment: 104.1 Performed By: #### L 9200.0000 #### [facility] [address] [place], [address] Calcium [Mass/Vol] 9.1 mg/dL Normal 7.6-11.0 [facility] Comment on above: Order Comment: 104.1 Performed By: #### L 9200.0000 #### [facility] [address] [place], [address] Chloride [Moles/Vol] 109 mmol/L High 98-108 [facility] Comment on above: Order Comment: 104.1 Performed By: #### L 9200.0000 #### [facility] [address] [place], [address] CO2 [Moles/Vol] 19.7 mmol/L Low 21.0-32.0 [facility] Comment on above: Order Comment: 104.1 Performed By: #### L 9200.0000 #### [facility] [address] [place], [address] Creatinine [Mass/Vol] 1.15 mg/dL Normal 0.70-1.20 [facility] Comment on above: Order Comment: 104.1 Performed By: #### L 9200.0000 #### [facility] [address] [place], [address] GAP 10 Normal 5-15 [facility] Comment on above: Order Comment: 104.1 Performed By: #### L 9200.0000 #### [facility] [address] [place], [address] GFR/1.73 sq M.predicted among non-blacks MDRD (S/P/Bld) [Vol rate/Area] 47 mL/min/{1.73_m2} Low >60 [facility] Comment on above: Order Comment: 104.1 Result Comment: mL/m in/1.73m2 CKD-EPI Creatinine Equation (2020) Performed By: #### L 9200.0000 #### [facility] [address] [place], [address] Glucose [Mass/Vol] 87 mg/dL Normal 70-99 [facility] Comment on above: Order Comment: 104.1 Performed By: #### L 9200.0000 #### [facility] [address] [place], [address] Potassium [Moles/Vol] 5.0 mmol/L Normal 3.3-5.1 [facility] Comment on above: Order Comment: 104.1 Performed By: #### L 9200.0000 #### [facility] [address] [place], [address] Sodium [Moles/Vol] 138 mmol/L Normal 133-145 [facility] Comment on above: Order Comment: 104.1 Performed By: #### L 9200.0000 #### [facility] [address] [place], [address] Urea nitrogen [Mass/Vol] 20 mg/dL High 4-19 [facility] Comment on above: Order Comment: 104.1 Performed By: #### L 9200.0000 #### [facility] [address] [place], [address] CBC-Complete Blood Cnt No Di ffon 01-07-2025 Erythrocyte distribution width (RBC) [Ratio] 16.5 % High 11.6-14.6 [facility] Comment on above: Order Comment: 104.1 Performed By: #### L 9200.0000 #### [facility] [address] [place], [address] Hematocrit (Bld) [Volume fraction] 30.4 % Low 37-47 [facility] Comment on above: Order Comment: 104.1 Performed By: #### L 9200.0000 #### [facility] [address] [place], [address] Hemoglobin (Bld) [Mass/Vol] 9.8 g/dL Low 12.0-15.0 [facility] Comment on above: Order Comment: 104.1 Performed By: #### L 9200.0000 #### [facility] [address] [place], [address] MCH (RBC) [Entitic mass] 29.9 pg Normal 27.0-32.0 [facility] Comment on above: Order Comment: 104.1 Performed By: #### L [id number] #### [facility] [address] [place], [address] MCHC (RBC) [Mass/Vol] 32.2 g/dL Normal 32-36 [facility] Comment on above: Order Comment: 104.1 Performed By: #### L [id number] #### [facility] [address] [place], [address] MCV (RBC) [Entitic vol] 92.7 fL Normal 81-99 [facility] Comment on above: Order Comment: 104.1 Performed By: #### L 9200.0000 #### [facility] [address] [place], [address] Platelet mean volume (Bld) [Entitic vol] 10.0 fL Normal 6.2-12.0 [facility] Comment on above: Order Comment: 104.1 Performed By: #### L 9200.0000 #### [facility] [address] [place], [address] Platelets (Bld) [#/Vol] 254 10*3/uL Normal 150-450 [facility] Comment on above: Order Comment: 104.1 Performed By: #### L 9200.0000 #### [facility] [address] [place], [address] RBC (Bld) [#/Vol] 3.28 10*6/uL Low 4.2-5.4 [facility] Comment on above: Order Comment: 104.1 Performed By: #### L 9200.0000 #### [facility] [address] [place], [address] RDW SD 55.9 fl High 35.1-43.9 [facility] Comment on above: Order Comment: 104.1 Performed By: #### L 9200.0000 #### [facility] [address] [place], [address] WBC (Bld) [#/Vol] 4.5 10*3/uL Normal 4.4-11.0 [facility] Comment on above: Order Comment: 104.1 Performed By: #### L 9200.0000 #### [facility] [address] [place], [address] 36on 01-04-2025 36 Normal [facility] 36 Normal [facility] Progress Noteon 12-24-2024 Progress Note Normal [facility] No Panel Informationon 12-13 Left MICHELLE 0.71 [facility] Left arm BP 121 mmHg [facility] Left Dist Outflow EDV 6.5 cm/s [facility] Left Dist Outflow PSV 51.5 cm/s [facility] Left dorsalis pedis BP 67 mmHg [facility] Left Graft 1 Proximal Popliteal Stent [facility] Left Inflow Artery EDV 8.5 cm/s [facility] Left Inflow Artery PSV 46.5 cm/s [facility] Left Mid Outflow EDV 6.5 cm/s [facility] Left Mid Outflow PSV 58.1 cm/s [facility] Left Outflow Vessel EDV 9.8 cm/s [facility] Left Outflow Vessel PSV 89.9 cm/s [facility] Left posterior tibial 94 mmHg [facility] Left Prox Outflow EDV 6.5 cm/s [facility] Left Prox Outflow PSV 51.5 cm/s [facility] Right MICHELLE 0.96 [facility] Right arm BP 133 mmHg [facility] Right YARITZA dist PSV 53.6 cm/s [facility] Right BUCKLE COVERER dist PSV 144.6 cm/s [facility] Right BUCKLE COVERER mid AP diameter 0.92 cm [facility] Right BUCKLE COVERER mid TR diameter 0.89 cm [facility] Right BUCKLE COVERER prox PSV 133.7 cm/s [facility] Right Dist Outflow EDV 0 cm/s [facility] Right Dist Outflow PSV 45.3 cm/s [facility] Right dorsalis pedis BP 107 mmHg [facility] Right EIA dist PSV 144.6 cm/s [facility] Right Graft 1 Distal SFA Stent [facility] Right Inflow Artery EDV 4.6 cm/s [facility] Right Inflow Artery PSV 100.7 cm/s [facility] Right Mid Outflow EDV 2.3 cm/s [facility] Right Mid Outflow PSV 66.2 cm/s [facility] Right Outflow Vessel EDV 2.3 cm/s [facility] Right Outflow Vessel PSV 56.4 cm/s [facility] Right PFA AP diameter 0.59 cm [facility] Right PFA TR diameter 0.73 cm [facility] Right Pop A dist PSV 157.6 cm/s [facility] Right Pop A mid PSV 89.9 cm/s [facility] Right popliteal artery mid AP diameter 0.52 cm [facility] Right popliteal artery mid TR diameter 0.6 cm [facility] Right posterior tibial 128 mmHg [facility] Right Prox Outflow EDV 0 cm/s [facility] Right Prox Outflow PSV 68.6 cm/s [facility] Right 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 dist PSV 48.1 cm/s [facility] Right [...] Right SFA proximal AP diameter 0.55 cm [facility] Right SFA proximal TR diameter 0.61 cm [facility] Stents in SFA and popliteal artery are [...] CPACS Progress Noteon 12-05-2024 Progress Note Normal [facility] 36on 11-23-2024 36 Normal [facility] 36 Normal [facility] 36 Normal [facility] [id number] 11-22-2024 [id number] Normal [facility] Anesthesia Noteon 11-22-2024 Anesthesia Note Normal [facility] No Panel Informationon 11-22 There is no interpretation needed for this exam. IMAGING Nursing Noteon 11-22-2024 Nursing Note Patient arrived on unit. Name and date verified. Attached to monitors. Vital signs stable. Normal [facility] Op Noteon 11-22-2024 Op Note Normal [facility] Progress Noteon 11-22-2024 Progress Note POA called to bedsid e and discharge instructions reviewed. Groin site remains intact and LE distal pulses unchanged via assessment with doppler. Transportation called for cigar packer and picker Normal [facility] Progress Note POA given updated vi a phone call. Made aware of patient's orders to lay flat until 1325. Daughter in law stated that she will call care facility later to make arrangements for transportation back. Normal [facility] Anesthesia Noteon 11-21-2024 Anesthesia Note Normal [facility] Basic Metabolic Profile (BMP )on 11-15-2024 BUN/CRE 18.3 RATIO Normal 10-20 [facility] Comment on above: Order Comment: 104-1 Performed By: #### L 9200.0000 #### [facility] [address] [place], [address] Calcium [Mass/Vol] 9.0 mg/dL Normal 7.6-11.0 [facility] Comment on above: Order Comment: 104-1 Performed By: #### L 9200.0000 #### [facility] [address] [place], [address] Chloride [Moles/Vol] 108 mmol/L Normal 98-108 [facility] Comment on above: Order Comment: 104-1 Performed By: #### L 9200.0000 #### [facility] [address] [place], [address] CO2 [Moles/Vol] 22.1 mmol/L Normal 21.0-32.0 [facility] Comment on above: Order Comment: 104-1 Performed By: #### L 9200.0000 #### [facility] [address] [place], [address] Creatinine [Mass/Vol] 1.03 mg/dL Normal 0.70-1.20 [facility] Comment on above: Order Comment: 104-1 Performed By: #### L 9200.0000 #### [facility] [address] [place], [address] GAP 9 Normal 5-15 [facility] Comment on above: Order Comment: 104-1 Performed By: #### L 9200.0000 #### [facility] [address] [place], [address] GFR/1.73 sq M.predicted among non-blacks MDRD (S/P/Bld) [Vol rate/Area] 53 mL/min/{1.73_m2} Low >60 [facility] Comment on above: Order Comment: 104-1 Result Comment: mL/m in/1.73m2 CKD-EPI Creatinine Equation (2020) Performed By: #### L 9200.0000 #### [facility] [address] [place], [address] Glucose [Mass/Vol] 91 mg/dL Normal 70-99 [facility] Comment on above: Order Comment: 104-1 Performed By: #### L 9200.0000 #### [facility] [address] [place], [address] Potassium [Moles/Vol] 4.8 mmol/L Normal 3.3-5.1 [facility] Comment on above: Order Comment: 104-1 Performed By: #### L 9200.0000 #### [facility] [address] [place], [address] Sodium [Moles/Vol] 138 mmol/L Normal 133-145 [facility] Comment on above: Order Comment: 104-1 Performed By: #### L 9200.0000 #### [facility] [address] [place], [address] Urea nitrogen [Mass/Vol] 19 mg/dL Normal 4-19 [facility] Comment on above: Order Comment: 104-1 Performed By: #### L 9200.0000 #### [facility] [address] [place], [address] CBC W/Diff, Automatedon 05-0 Absolute Lymph 1.77 X10 3/uL Normal 0.83-4.51 [facility] Comment on above: Order Comment: 104-1 Performed By: #### L 9200.0000 #### [facility] [address] [place], [address] Absolute Neut 3.2 X10 3/uL Normal 2.0-7.7 [facility] Comment on above: Order Comment: 104-1 Performed By: #### L 9200.0000 #### [facility] [address] [place], [address] Basophils/100 WBC (Bld) 0.7 % Normal 0-1 [facility] Comment on above: Order Comment: 104-1 Performed By: #### L 9200.0000 #### [facility] [address] [place], [address] Eosinophils/100 WBC (Bld) 2.9 % Normal 0-5 [facility] Comment on above: Order Comment: 104-1 Performed By: #### L 9200.0000 #### [facility] [address] [place], [address] Erythrocyte distribution width (RBC) [Ratio] 18.8 % High 11.6-14.6 [facility] Comment on above: Order Comment: 104-1 Performed By: #### L 9200.0000 #### [facility] [address] [place], [address] Hematocrit (Bld) [Volume fraction] 30.9 % Low 37-47 [facility] Comment on above: Order Comment: 104-1 Performed By: #### L 9200.0000 #### [facility] [address] [place], [address] Hemoglobin (Bld) [Mass/Vol] 9.8 g/dL Low 12.0-15.0 [facility] Comment on above: Order Comment: 104-1 Performed By: #### L 9200.0000 #### [facility] [address] [place], [address] IG% 0.200 Normal 0.0-0.9 [facility] Comment on above: Order Comment: 104-1 Result Comment: IG% - Immature Granulocytes (promyelocytes, myelocytes and metamyelocytes) > 1% indicates that a LEFT SHIFT is Present. Performed By: #### L 9200.0000 #### [facility] [address] [place], [address] Lymphocytes/100 WBC (Bld) 30.3 % Normal 19-41 [facility] Comment on above: Order Comment: 104-1 Performed By: #### L 9200.0000 #### [facility] [address] [place], [address] MCH (RBC) [Entitic mass] 28.4 pg Normal 27.0-32.0 [facility] Comment on above: Order Comment: 104-1 Performed By: #### L 9200.0000 #### [facility] [address] [place], [address] MCHC (RBC) [Mass/Vol] 31.7 g/dL Low 32-36 [facility] Comment on above: Order Comment: 104-1 Performed By: #### L 9200.0000 #### [facility] [address] [place], [address] MCV (RBC) [Entitic vol] 89.6 fL Normal 81-99 [facility] Comment on above: Order Comment: 104-1 Performed By: #### L 9200.0000 #### [facility] [address] [place], [address] Monocytes/100 WBC (Bld) 11.3 % High 0-10 [facility] Comment on above: Order Comment: 104-1 Performed By: #### L 9200.0000 #### [facility] [address] [place], [address] Neutrophils/100 WBC (Bld) 54.6 % Normal 47-70 [facility] Comment on above: Order Comment: 104-1 Performed By: #### L 9200.0000 #### [facility] [address] [place], [address] Nucleated RBC (Bld) [#/Vol] 0 10*3/uL Normal 0-5 [facility] Comment on above: Order Comment: 104-1 Performed By: #### L 9200.0000 #### [facility] [address] [place], [address] Platelet mean volume (Bld) [Entitic vol] 10.2 fL Normal 6.2-12.0 [facility] Comment on above: Order Comment: 104-1 Performed By: #### L 9200.0000 #### [facility] [address] [place], [address] Platelets (Bld) [#/Vol] 303 10*3/uL Normal 150-450 [facility] Comment on above: Order Comment: 104-1 Performed By: #### L 9200.0000 #### [facility] [address] [place], [address] RBC (Bld) [#/Vol] 3.45 10*6/uL Low 4.2-5.4 [facility] Comment on above: Order Comment: 104-1 Performed By: #### L 9200.0000 #### [facility] [address] [place], [address] RDW SD 61.8 fl High 35.1-43.9 [facility] Comment on above: Order Comment: 104-1 Performed By: #### L 9200.0000 #### [facility] [address] [place], [address] WBC (Bld) [#/Vol] 5.8 10*3/uL Normal 4.4-11.0 [facility] Comment on above: Order Comment: 104-1 Performed By: #### L 9200.0000 #### [facility] [address] [place], [address] 36on 11-14-2024 36 Normal [facility] 36on 11-08-2024 36 Fidel called to state that she spoke with Mel and she would like to proceed with angio. Normal [facility] Progress Noteon 11-05-2024 Progress Note Normal [facility] Anion gap in Serum or Plasma Ordered By: Megan Montoya on 10-08-2024 Anion gap [Moles/Vol] 12 mmol/L - [facility] BUN/creatinine ratioOrdered By: Megan Montoya on 10-08-2024 Urea nitrogen/Creatinine [Mass ratio] 16.5 mg/mg - [facility] Basic Metabolic Profile (BMP )on 10-08-2024 BUN/CRE 16.5 RATIO Normal 05-06 [facility] Comment on above: Order Comment: 104.1 Performed By: #### L 500.2500, L100.0500 #### [facility] [address] [place], [address] Calcium [Mass/Vol] 9.0 mg/dL Normal 7.6-11.0 [facility] Comment on above: Order Comment: 104.1 Performed By: #### L 500.2500, L100.0500 #### [facility] [address] [place], [address] Chloride [Moles/Vol] 106 mmol/L Normal 98-108 [facility] Comment on above: Order Comment: 104.1 Performed By: #### L 500.2500, L100.0500 #### [facility] [address] [place], [address] CO2 [Moles/Vol] 20.0 mmol/L Low 21.0-32.0 [facility] Comment on above: Order Comment: 104.1 Performed By: #### L 500.2500, L100.0500 #### [facility] [address] [place], [address] Creatinine [Mass/Vol] 1.05 mg/dL Normal 0.70-1.20 [facility] Comment on above: Order Comment: 104.1 Performed By: #### L 500.2500, L100.0500 #### [facility] [address] [place], [address] GAP 12 Normal 5-15 [facility] Comment on above: Order Comment: 104.1 Performed By: #### L 500.2500, L100.0500 #### [facility] [address] [place], [address] GFR/1.73 sq M.predicted among non-blacks MDRD (S/P/Bld) [Vol rate/Area] 52 mL/min/{1.73_m2} Low >60 [facility] Comment on above: Order Comment: 104.1 Result Comment: mL/m in/1.73m2 CKD-EPI Creatinine Equation (2020) Performed By: #### L 500.2500, L100.0500 #### [facility] [address] [place], [address] Glucose [Mass/Vol] 98 mg/dL Normal 70-99 [facility] Comment on above: Order Comment: 104.1 Performed By: #### L 500.2500, L100.0500 #### [facility] [address] [place], [address] Potassium [Moles/Vol] 4.3 mmol/L Normal 3.3-5.1 [facility] Comment on above: Order Comment: 104.1 Result Comment: Hemo lysis present, Results??could be affected. ?? Performed By: #### L 500.2500, L100.0500 #### [facility] [address] [place], [address] Sodium [Moles/Vol] 137 mmol/L Normal 133-145 [facility] Comment on above: Order Comment: 104.1 Performed By: #### L 500.2500, L100.0500 #### [facility] [address] [place], [address] Urea nitrogen [Mass/Vol] 17 mg/dL Normal 4-19 [facility] Comment on above: Order Comment: 104.1 Performed By: #### L 500.2500, L100.0500 #### [facility] [address] [place], [address] CBC-Complete Blood Cnt No Di ffon 10-08-2024 Erythrocyte distribution width (RBC) [Ratio] 17.5 % High 11.6-14.6 [facility] Comment on above: Order Comment: 104.1 Performed By: #### L 500.2500, L100.0500 #### [facility] [address] [place], [address] Hematocrit (Bld) [Volume fraction] 30.4 % Low 37-47 [facility] Comment on above: Order Comment: 104.1 Performed By: #### L 500.2500, L100.0500 #### [facility] [address] [place], [address] Hemoglobin (Bld) [Mass/Vol] 9.6 g/dL Low 12.0-15.0 [facility] Comment on above: Order Comment: 104.1 Performed By: #### L 500.2500, L100.0500 #### [facility] [address] [place], [address] MCH (RBC) [Entitic mass] 27.4 pg Normal 27.0-32.0 [facility] Comment on above: Order Comment: 104.1 Performed By: #### L 500.2500, L100.0500 #### [facility] [address] [place], [address] MCHC (RBC) [Mass/Vol] 31.6 g/dL Low 32-36 [facility] Comment on above: Order Comment: 104.1 Performed By: #### L 500.2500, L100.0500 #### [facility] [address] [place], [address] MCV (RBC) [Entitic vol] 86.9 fL Normal 81-99 [facility] Comment on above: Order Comment: 104.1 Performed By: #### L 500.2500, L100.0500 #### [facility] [address] [place], [address] Platelet mean volume (Bld) [Entitic vol] 10.3 fL Normal 6.2-12.0 [facility] Comment on above: Order Comment: 104.1 Performed By: #### L 500.2500, L100.0500 #### [facility] [address] [place], [address] Platelets (Bld) [#/Vol] 408 10*3/uL Normal 150-450 [facility] Comment on above: Order Comment: 104.1 Performed By: #### L 500.2500, L100.0500 #### [facility] [address] [place], [address] RBC (Bld) [#/Vol] 3.50 10*6/uL Low 4.2-5.4 [facility] Comment on above: Order Comment: 104.1 Performed By: #### L 500.2500, L100.0500 #### [facility] [address] [place], [address] RDW SD 56.2 fl High 35.1-43.9 [facility] Comment on above: Order Comment: 104.1 Performed By: #### L 500.2500, L100.0500 #### [facility] [address] [place], [address] WBC (Bld) [#/Vol] 6.4 10*3/uL Normal 4.4-11.0 [facility] Comment on above: Order Comment: 104.1 Performed By: #### L 500.2500, L100.0500 #### [facility] [place], [address] Carbon dioxide, total [Moles /volume] in Central venous bloodOrdered By: Megan Montoya on 10-08-2024 CO2 [Moles/Vol] 20.0 mmol/L Low 21.0-32.0 [facility] Chloride assayOrdered By: Johnathan Guzman on 10-08-2024 Chloride [Moles/Vol] 106 mmol/L 98-108 [facility] Erythrocyte distribution wid th ratioOrdered By: Megan Montoya on 10-08-2024 Erythrocyte distribution width (RBC) [Ratio] 17.5 % High 11.6-14.6 [facility] Erythrocyte distribution wid th standard deviationOrdered By: Megan Montoya on 10-08-2024 Erythrocyte distribution width (RBC) [Entitic vol] 56.2 fL High 35.1-43.9 [facility] GFR/1.73 sq M.predicted gricelda g non-blacks MDRD (S/P/Bld) [Vol rate/Area]Ordered By: Megan Montoya on 10-08-2024 Estimated GFR (MDRD) Non-Af Amer 52 Low >60 [facility] Comment on above: mL/min/1.73m2 CKD-EP I Creatinine Equation (2020) Hematocrit Auto (Bld) [Volum e fraction]Ordered By: Megan Montoya on 10-08-2024 Hematocrit (Bld) [Volume fraction] 30.4 % Low 37-47 [facility] Hemoglobin measurementOrdere d By: Megan Montoya on 10-08-2024 Hemoglobin (Bld) [Mass/Vol] 9.6 g/dL Low 12.0-15.0 [facility] MCV (mean corpuscular volume ) determinationOrdered By: Megan Montoya on 10-08-2024 MCV (RBC) [Entitic vol] 86.9 fL 81-99 [facility] Mean corpuscular hemoglobin (MCH) determinationOrdered By: Megan Montoya on 10-08-2024 MCH (RBC) [Entitic mass] 27.4 pg 27.0-32.0 [facility] Mean corpuscular hemoglobin concentration (MCHC) determinationOrdered By: Megan Montoya on 10-08-2024 MCHC (RBC) [Mass/Vol] 31.6 g/dL Low 32-36 [facility] Mean platelet volume determi nationOrdered By: Megan Montoya on 10-08-2024 Platelet mean volume (Bld) [Entitic vol] 10.3 fL 6.2-12.0 [facility] Platelet countOrdered By: Johnathan Guzman on 10-08-2024 Platelets (Bld) [#/Vol] 408 10*3/uL 150-450 [facility] Potassium (Unsp spec) [Mass/ Vol]Ordered By: Megan Montoya on 10-08-2024 Potassium [Moles/Vol] 4.3 mmol/L 3.3-5.1 [facility] Comment on above: Hemolysis present, R esults could be affected. RBC Auto (Bld) [#/Vol]Ordere d By: Megan Montoya on 10-08-2024 RBC (Bld) [#/Vol] 3.50 10*6/uL Low 4.2-5.4 [facility] Serum creatinine measurement (mass/volume)Ordered By: Megan Montoya on 10-08-2024 Creatinine [Mass/Vol] 1.05 mg/dL 0.70-1.20 [facility] Serum glucose measurement (m ass/volume)Ordered By: Megan Montoya on 10-08-2024 Glucose [Mass/Vol] 98 mg/dL 70-99 [facility] Serum or plasma calcium reyna urement (mass/volume)Ordered By: Megan Montoya on 10-08-2024 Calcium [Mass/Vol] 9.0 mg/dL 7.6-11.0 [facility] Serum or plasma urea nitroge n measurement (mass/volume)Ordered By: Megan Montoya on 10-08-2024 Urea nitrogen [Mass/Vol] 17 mg/dL 4-19 [facility] Sodium levelOrdered By: Juan C Montoya on 10-08-2024 Sodium [Moles/Vol] 137 mmol/L 133-145 [facility] White blood cell (WBC) count Ordered By: Megan Montoya on 10-08-2024 WBC (Bld) [#/Vol] 6.4 10*3/uL 4.4-11.0 [facility] BSCAN OD (RIGHT EYE)on 10-01 [facility] Radiology Study observation (narrative) [facility] BUN/creatinine ratioOrdered By: Megan Montoya on 09-17-2024 Urea nitrogen/Creatinine [Mass ratio] 15.7 mg/mg 10-20 [facility] Basic Metabolic Profile (BMP )on 09-17-2024 Anion gap [Moles/Vol] 10 mmol/L Normal 5-15 [facility] Comment on above: Order Comment: 104.1 Performed By: #### L 9200.0000 #### [facility] [address] [place], [address] BUN/CRE 15.7 RATIO Normal 10-20 [facility] Comment on above: Order Comment: 104.1 Performed By: #### L 9200.0000 #### [facility] [address] [place], [address] Calcium [Mass/Vol] 9.0 mg/dL Normal 7.6-11.0 [facility] Comment on above: Order Comment: 104.1 Performed By: #### L 9200.0000 #### [facility] [address] [place], [address] Chloride [Moles/Vol] 108 mmol/L Normal 96-108 [facility] Comment on above: Order Comment: 104.1 Performed By: #### L 9200.0000 #### [facility] [address] [place], [address] CO2 [Moles/Vol] 21.6 mmol/L Low 22.0-29.0 [facility] Comment on above: Order Comment: 104.1 Performed By: #### L 9200.0000 #### [facility] [address] [place], [address] Creatinine [Mass/Vol] 1.03 mg/dL Normal 0.70-1.20 [facility] Comment on above: Order Comment: 104.1 Performed By: #### L 9200.0000 #### [facility] [address] [place], [address] GFR/1.73 sq M.predicted among non-blacks MDRD (S/P/Bld) [Vol rate/Area] 54 mL/min/{1.73_m2} Low >60 [facility] Comment on above: Order Comment: 104.1 Result Comment: mL/m in/1.73m2 CKD-EPI Creatinine Equation (2020) Performed By: #### L 9200.0000 #### [facility] [address] [place], [address] Glucose [Mass/Vol] 90 mg/dL Normal 70-99 [facility] Comment on above: Order Comment: 104.1 Performed By: #### L 9200.0000 #### [facility] [address] [place], [address] Potassium [Moles/Vol] 4.5 mmol/L Normal 3.3-5.1 [facility] Comment on above: Order Comment: 104.1 Performed By: #### L [id number] #### [facility] [address] [place], [address] Sodium [Moles/Vol] 140 mmol/L Normal 133-145 [facility] Comment on above: Order Comment: 104.1 Performed By: #### L 9200.0000 #### [facility] [address] [place], [address] Urea nitrogen [Mass/Vol] 16 mg/dL Normal 4-19 [facility] Comment on above: Order Comment: 104.1 Performed By: #### L 9200.0000 #### [facility] [address] [place], [address] Carbon dioxide measurementOr dered By: Megan Montoya on 09-17-2024 CO2 [Moles/Vol] 21.6 mmol/L Low 22.0-29.0 [facility] Chloride measurementOrdered By: Megan Montoya on 09-17-2024 Chloride [Moles/Vol] 108 mmol/L 96-108 [facility] GFR/1.73 sq M.predicted gricelda g non-blacks MDRD (S/P/Bld) [Vol rate/Area]Ordered By: Megan Montoya on 09-17-2024 Estimated GFR (MDRD) Non-Af Amer 54 Low >60 [facility] Comment on above: mL/min/1.73m2 CKD-EP I Creatinine Equation (2020) Serum creatinine measurement (mass/volume)Ordered By: Megan Montoya on 09-17-2024 Creatinine [Mass/Vol] 1.03 mg/dL 0.70-1.20 [facility] Serum glucose measurement (m ass/volume)Ordered By: Megan Montoya on 09-17-2024 Glucose [Mass/Vol] 90 mg/dL 70-99 [facility] Serum or plasma anion gap de termination (moles/volume)Ordered By: Megan Montoya on 09-17-2024 Anion gap [Moles/Vol] 10 mmol/L 5-15 [facility] Serum or plasma calcium reyna urement (mass/volume)Ordered By: Megan Montoya on 09-17-2024 Calcium [Mass/Vol] 9.0 mg/dL 7.6-11.0 [facility] Serum or plasma potassium me asurementOrdered By: Megan Montoya on 09-17-2024 Potassium [Moles/Vol] 4.5 mmol/L 3.3-5.1 [facility] Serum or plasma sodium measu rement (moles/volume)Ordered By: Megan Montoya on 09-17-2024 Sodium [Moles/Vol] 140 mmol/L 133-145 [facility] Serum or plasma urea nitroge n measurement (mass/volume)Ordered By: Megan Montoya on 09-17-2024 Urea nitrogen [Mass/Vol] 16 mg/dL 4-19 [facility] Basic Metabolic Profile (BMP )on 09-10-2024 BUN/CRE 17.9 RATIO Normal 10-20 [facility] Comment on above: Order Comment: 104.1 Performed By: #### L 9200.0000 #### [facility] [address] [place], [address] CA,Total 9.0 mg/dL Normal 8.5-10.1 [facility] Comment on above: Order Comment: 104.1 Performed By: #### L 9200.0000 #### [facility] [address] [place], [address] Chloride [Moles/Vol] 108 mmol/L High 98-107 [facility] Comment on above: Order Comment: 104.1 Performed By: #### L 9200.0000 #### [facility] [address] [place], [address] CO2 [Moles/Vol] 24.0 mmol/L Normal 21.0-32.0 [facility] Comment on above: Order Comment: 104.1 Performed By: #### L 9200.0000 #### [facility] [address] [place], [address] Creatinine [Mass/Vol] 1.23 mg/dL High 0.55-1.02 [facility] Comment on above: Order Comment: 104.1 Result Comment: The validity of the calculated GFR GFRAA in patients over 70 years has not been determined. Clinical correlation is essential. Performed By: #### L 9200.0000 #### [facility] [address] [place], [address] EST GFR - AA 53 mL/min Low >60 [facility] Comment on above: Order Comment: 104.1 Result Comment: Afri can Austrian GFR Calc Performed By: #### L 9200.0000 #### [facility] [address] [place], [address] GAP 5 Normal 5-15 [facility] Comment on above: Order Comment: 104.1 Performed By: #### L 9200.0000 #### [facility] [address] [place], [address] GFR/1.73 sq M.predicted among non-blacks MDRD (S/P/Bld) [Vol rate/Area] 44 mL/min/{1.73_m2} Low >60 [facility] Comment on above: Order Comment: 104.1 Result Comment: Non- GFR Calc Performed By: #### L 9200.0000 #### [facility] [address] [place], [address] Glucose [Mass/Vol] 98 mg/dL Normal 74-106 [facility] Comment on above: Order Comment: 104.1 Performed By: #### L [id number] #### [facility] [address] [place], [address] Potassium [Moles/Vol] 4.5 mmol/L Normal 3.5-5.1 [facility] Comment on above: Order Comment: 104.1 Performed By: #### L [id number] #### [facility] [address] [place], [address] Sodium [Moles/Vol] 137 mmol/L Normal 136-145 [facility] Comment on above: Order Comment: 104.1 Performed By: #### L 9200.0000 #### [facility] [address] [place], [address] Urea nitrogen [Mass/Vol] 22 mg/dL High 7-18 [facility] Comment on above: Order Comment: 104.1 Performed By: #### L 9200.0000 #### [facility] [address] [place], [address] Blood urea nitrogen (BUN)/cr eatinine ratioOrdered By: Megan Montoya on 09-10-2024 Urea nitrogen/Creatinine [Mass ratio] 17.9 mg/mg 10-20 [facility] CBC-Complete Blood Cnt No Di ffon 09-10-2024 Erythrocyte distribution width (RBC) [Ratio] 17.8 % High 11.6-14.6 [facility] Comment on above: Order Comment: 104.1 Performed By: #### L 9200.0000 #### [facility] [address] [place], [address] Hematocrit (Bld) [Volume fraction] 31.9 % Low 37-47 [facility] Comment on above: Order Comment: 104.1 Performed By: #### L 9200.0000 #### [facility] [address] [place], [address] Hemoglobin (Bld) [Mass/Vol] 9.7 g/dL Low 12.0-15.0 [facility] Comment on above: Order Comment: 104.1 Performed By: #### L [id number] #### [facility] [address] [place], [address] MCH (RBC) [Entitic mass] 26.1 pg Low 27.0-32.0 [facility] Comment on above: Order Comment: 104.1 Performed By: #### L 9200.0000 #### [facility] [address] [place], [address] MCHC (RBC) [Mass/Vol] 30.4 g/dL Low 32-36 [facility] Comment on above: Order Comment: 104.1 Performed By: #### L [id number] #### [facility] [address] [place], [address] MCV (RBC) [Entitic vol] 85.8 fL Normal 81-99 [facility] Comment on above: Order Comment: 104.1 Performed By: #### L [id number] #### [facility] [address] [place], [address] Platelet mean volume (Bld) [Entitic vol] 9.5 fL Normal 6.2-12.0 [facility] Comment on above: Order Comment: 104.1 Performed By: #### L [id number] #### [facility] [address] [place], [address] Platelets (Bld) [#/Vol] 485 10*3/uL High 150-450 [facility] Comment on above: Order Comment: 104.1 Performed By: #### L [id number] #### [facility] [address] [place], [address] RBC (Bld) [#/Vol] 3.72 10*6/uL Low 4.2-5.4 [facility] Comment on above: Order Comment: 104.1 Performed By: #### L [id number] #### [facility] [address] [place], [address] RDW SD 55.2 fl High 35.1-43.9 [facility] Comment on above: Order Comment: 104.1 Performed By: #### L [id number] #### [facility] [address] [place], [address] WBC (Bld) [#/Vol] 7.7 10*3/uL Normal 4.4-11.0 [facility] Comment on above: Order Comment: 104.1 Performed By: #### L [id number] #### [facility] [address] [place], [address] Carbon dioxide measurementOr dered By: Megan Montoya on 09-10-2024 CO2 [Moles/Vol] 24.0 mmol/L 21.0-32.0 [facility] Chloride measurementOrdered By: Megan Montoya on 09-10-2024 Chloride [Moles/Vol] 108 mmol/L High 98-107 [facility] Erythrocyte distribution wid th ratioOrdered By: Megan Montoya on 09-10-2024 Erythrocyte distribution width (RBC) [Ratio] 17.8 % High 11.6-14.6 [facility] Erythrocyte distribution wid th standard deviationOrdered By: Megan Montoya on 09-10-2024 Erythrocyte distribution width (RBC) [Entitic vol] 55.2 fL High 35.1-43.9 [facility] Estimated glomerular filtrat ion rate (GFR) AmericanOrdered By: Megan Montoya on 09-10-2024 Estimated GFR (MDRD) Amer 53 mL/min Low >60 [facility] Comment on above: GFR Calc Glomerular filtration rate ( GFR) estimationOrdered By: Megan Montoya on 09-10-2024 Estimated GFR (MDRD) Non-Af Amer 44 mL/min Low >60 [facility] Comment on above: Non- GFR Calc Glucose measurementOrdered B y: Megan Montoya on 09-10-2024 Glucose [Mass/Vol] 98 mg/dL 74-106 [facility] Hematocrit Auto (Bld) [Volum e fraction]Ordered By: Megan Montoya on 09-10-2024 Hematocrit (Bld) [Volume fraction] 31.9 % Low 37-47 [facility] Hemoglobin measurementOrdere d By: Megan Montoya on 09-10-2024 Hemoglobin (Bld) [Mass/Vol] 9.7 g/dL Low 12.0-15.0 [facility] MCV (mean corpuscular volume ) determinationOrdered By: Megan Montoya on 09-10-2024 MCV (RBC) [Entitic vol] 85.8 fL 81-99 [facility] Mean corpuscular hemoglobin (MCH) determinationOrdered By: Megan Montoya on 09-10-2024 MCH (RBC) [Entitic mass] 26.1 pg Low 27.0-32.0 [facility] Mean corpuscular hemoglobin concentration (MCHC) determinationOrdered By: Megan Montoya on 09-10-2024 MCHC (RBC) [Mass/Vol] 30.4 g/dL Low 32-36 [facility] Mean platelet volume determi nationOrdered By: Megan Montoya on 09-10-2024 Platelet mean volume (Bld) [Entitic vol] 9.5 fL 6.2-12.0 [facility] Platelet countOrdered By: Johnathan Guzman on 09-10-2024 Platelets (Bld) [#/Vol] 485 10*3/uL High 150-450 [facility] Potassium measurementOrdered By: Megan Montoya on 09-10-2024 Potassium [Moles/Vol] 4.5 mmol/L 3.5-5.1 [facility] RBC Auto (Bld) [#/Vol]Ordere d By: Megan Montoya on 09-10-2024 RBC (Bld) [#/Vol] 3.72 10*6/uL Low 4.2-5.4 [facility] Serum anion gap measurementO rdered By: Megan Montoya on 09-10-2024 Anion gap [Moles/Vol] 5 mmol/L 5-15 [facility] Serum or plasma calcium reyna urement (mass/volume)Ordered By: Megan Montoya on 09-10-2024 Calcium [Mass/Vol] 9.0 mg/dL 8.5-10.1 [facility] Serum or plasma creatinine m easurement (mass/volume)Ordered By: Megan Montoya on 09-10-2024 Creatinine [Mass/Vol] 1.23 mg/dL High 0.55-1.02 [facility] Comment on above: The validity of the calculated GFR & GFRAA in patients over 70 years has not been determined. Clinical correlation is essential. Serum or plasma urea nitroge n measurement (mass/volume)Ordered By: Megan Montoya on 09-10-2024 Urea nitrogen [Mass/Vol] 22 mg/dL High 7-18 [facility] Sodium levelOrdered By: Juan C Montoya on 09-10-2024 Sodium [Moles/Vol] 137 mmol/L 136-145 [facility] White blood cell (WBC) count Ordered By: Megan Montoya on 09-10-2024 WBC (Bld) [#/Vol] 7.7 10*3/uL 4.4-11.0 [facility] Urine Cultureon 09-06-2024 URC UNKNOWN METHOD OF COLLECTION Proteus mirabilis [place] Count 50,000-80,000 Klebsiella pneumoniae sp pneum Klebsiella [...] TMP SMX Islt AGATA <=20 S Normal [facility] Comment on above: Performed By: #### L [id number] #### [facility] [address] [place], [address] Urinalysis, Completeon 09-04 BACTERIA 4+ /hpf Normal None Seen [facility] Comment on above: Order Comment: UNKNO WN METHOD OF COLLECTIONCLEAN CATCH Performed By: #### L [id number] #### [facility] [address] [place], [address] EPI,SQUAMOUS 10-25 SEEN Normal 5-10 [facility] Comment on above: Order Comment: UNKNO WN METHOD OF COLLECTIONCLEAN CATCH Performed By: #### L [id number] #### [facility] [address] [place], [address] Mucus Ql (Urine sed) 1+ /hpf Normal [facility] Comment on above: Order Comment: UNKNO WN METHOD OF COLLECTIONCLEAN CATCH Performed By: #### L [id number] #### [facility] [address] [place], [address] RBC 5-10 SEEN Normal 0-5 [facility] Comment on above: Order Comment: UNKNO WN METHOD OF COLLECTIONCLEAN CATCH Performed By: #### L [id number] #### [facility] [address] [place], [address] WBC 50-100 SEEN Normal 0-5 [facility] Comment on above: Order Comment: UNKNO WN METHOD OF COLLECTIONCLEAN CATCH Performed By: #### L [id number] #### [facility] [address] [place], [address] Basic Metabolic Profile (BMP )on 09-03-2024 BUN/CRE 20.7 RATIO High 10-20 [facility] Comment on above: Order Comment: 104-1 Performed By: #### L [id number] #### [facility] [address] [place], [address] CA,Total 9.4 mg/dL Normal 8.5-10.1 [facility] Comment on above: Order Comment: 104-1 Performed By: #### L [id number] #### [facility] [address] [place], [address] Chloride [Moles/Vol] 109 mmol/L High 98-107 [facility] Comment on above: Order Comment: 104-1 Performed By: #### L [id number] #### [facility] [address] [place], [address] CO2 [Moles/Vol] 21.0 mmol/L Normal 21.0-32.0 [facility] Comment on above: Order Comment: 104-1 Performed By: #### L [id number] #### [facility] [address] [place], [address] Creatinine [Mass/Vol] 0.92 mg/dL Normal 0.55-1.02 [facility] Comment on above: Order Comment: 104-1 Result Comment: The validity of the calculated GFR GFRAA in patients over 70 years has not been determined. Clinical correlation is essential. Performed By: #### L [id number] #### [facility] [address] [place], [address] EST GFR - AA 75 mL/min Normal >60 [facility] Comment on above: Order Comment: 104- Result Comment: Afri can [place] GFR Calc Performed By: #### L [id number] #### [facility] [address] [place], [address] GAP 9 Normal 5-15 [facility] Comment on above: Order Comment: 104-1 Performed By: #### L [id number] #### [facility] [address] [place], [address] GFR/1.73 sq M.predicted among non-blacks MDRD (S/P/Bld) [Vol rate/Area] 62 mL/min/{1.73_m2} Normal >60 [facility] Comment on above: Order Comment: 104- Result Comment: Non- GFR Calc Performed By: #### L [id number] #### [facility] [address] [place], [address] Glucose [Mass/Vol] 115 mg/dL High 74-106 [facility] Comment on above: Order Comment: 104- Result Comment: Fast ing Glucose result from 100 to 125 mg/dL suggests IMPAIRED HOMEOSTASIS per A.D.A. criteria. Performed By: #### L [id number] #### [facility] [address] [place], [address] Potassium [Moles/Vol] 4.4 mmol/L Normal 3.5-5.1 [facility] Comment on above: Order Comment: 104-1 Performed By: #### L [id number] #### [facility] [address] [place], [address] Sodium [Moles/Vol] 139 mmol/L Normal 136-145 [facility] Comment on above: Order Comment: 104-1 Performed By: #### L [id number] #### [facility] [address] [place], [address] Urea nitrogen [Mass/Vol] 19 mg/dL High 7-18 [facility] Comment on above: Order Comment: 104-1 Performed By: #### L [id number] #### [facility] [address] [place], [address] Bilirubin Test strip Ql (U)O rdered By: Megan Montoya on 09-03-2024 Bilirubin Ql (U) Negative Negative [facility] Blood urea nitrogen (BUN)/cr eatinine ratioOrdered By: Megan Montoya on 09-03-2024 Urea nitrogen/Creatinine [Mass ratio] 20.7 mg/mg High 10-20 [facility] CBC-Complete Blood Cnt No Di ffon 09-03-2024 Erythrocyte distribution width (RBC) [Ratio] 17.9 % High 11.6-14.6 [facility] Comment on above: Order Comment: 104-1 Performed By: #### L [id number] #### [facility] [address] [place], [address] Hematocrit (Bld) [Volume fraction] 30.8 % Low 37-47 [facility] Comment on above: Order Comment: 104-1 Performed By: #### L [id number] #### [facility] [address] [place], [address] Hemoglobin (Bld) [Mass/Vol] 9.5 g/dL Low 12.0-15.0 [facility] Comment on above: Order Comment: 104-1 Performed By: #### L [id number] #### [facility] [address] [place], [address] MCH (RBC) [Entitic mass] 25.7 pg Low 27.0-32.0 [facility] Comment on above: Order Comment: 104-1 Performed By: #### L [id number] #### [facility] [address] [place], [address] MCHC (RBC) [Mass/Vol] 30.8 g/dL Low 32-36 [facility] Comment on above: Order Comment: 104-1 Performed By: #### L [id number] #### [facility] [address] [place], [address] MCV (RBC) [Entitic vol] 83.5 fL Normal 81-99 [facility] Comment on above: Order Comment: 104-1 Performed By: #### L [id number] #### [facility] [address] [place], [address] Platelet mean volume (Bld) [Entitic vol] 10.2 fL Normal 6.2-12.0 [facility] Comment on above: Order Comment: 104-1 Performed By: #### L [id number] #### [facility] [address] [place], [address] Platelets (Bld) [#/Vol] 431 10*3/uL Normal 150-450 [facility] Comment on above: Order Comment: 104-1 Performed By: #### L [id number] #### [facility] [address] [place], [address] RBC (Bld) [#/Vol] 3.69 10*6/uL Low 4.2-5.4 [facility] Comment on above: Order Comment: 104-1 Performed By: #### L [id number] #### [facility] [address] [place], [address] RDW SD 54.3 fl High 35.1-43.9 [facility] Comment on above: Order Comment: 104-1 Performed By: #### L [id number] #### [facility] [address] [place], [address] WBC (Bld) [#/Vol] 10.6 10*3/uL Normal 4.4-11.0 [facility] Comment on above: Order Comment: 104-1 Performed By: #### L [id number] #### [facility] [place], [address] Carbon dioxide measurementOr dered By: Megan Montoya on 09-03-2024 CO2 [Moles/Vol] 21.0 mmol/L 21.0-32.0 [facility] Chloride measurementOrdered By: Megan Montoya on 09-03-2024 Chloride [Moles/Vol] 109 mmol/L High 98-107 [facility] Epithelial cells.squamous LM Ql (Urine sed)Ordered By: Megan Montoya on 09-03-2024 Epithelial cells.squamous LM.HPF (Urine sed) [#/Area] 10 /[HPF] 5-10 [facility] Erythrocyte distribution wid th ratioOrdered By: Megan Montoya on 09-03-2024 Erythrocyte distribution width (RBC) [Ratio] 17.9 % High 11.6-14.6 [facility] Erythrocyte distribution wid th standard deviationOrdered By: Megan Montoya on 09-03-2024 Erythrocyte distribution width (RBC) [Entitic vol] 54.3 fL High 35.1-43.9 [facility] Estimated glomerular filtrat ion rate (GFR) AmericanOrdered By: Megan Montoya on 09-03-2024 Estimated GFR (MDRD) Amer 75 mL/min >60 [facility] Comment on above: GFR Calc Glomerular filtration rate ( GFR) estimationOrdered By: Megan Montoya on 09-03-2024 Estimated GFR (MDRD) Non-Af Amer 62 mL/min >60 [facility] Comment on above: Non- GFR Calc Glucose Ql (U)Ordered By: Johnathan Guzman on 09-03-2024 Urine Glucose (UA) Normal mg/dl Normal [facility] Glucose measurementOrdered B y: Megan Montoya on 09-03-2024 Glucose [Mass/Vol] 115 mg/dL High 74-106 [facility] Comment on above: Fasting Glucose resu lt from 100 to 125 mg/dL suggests IMPAIRED HOMEOSTASIS per A.D.A. criteria. Hematocrit Auto (Bld) [Volum e fraction]Ordered By: Megan Montoya on 09-03-2024 Hematocrit (Bld) [Volume fraction] 30.8 % Low 37-47 [facility] Hemoglobin measurementOrdere d By: Megan Montoya on 09-03-2024 Hemoglobin (Bld) [Mass/Vol] 9.5 g/dL Low 12.0-15.0 [facility] Ketones Test strip Ql (U)Ord ered By: Megan Montoya on 09-03-2024 Ketones Ql (U) 5 mg/dl High Negative [facility] MCV (mean corpuscular volume ) determinationOrdered By: Megan Montoya on 09-03-2024 MCV (RBC) [Entitic vol] 83.5 fL 81-99 [facility] Mean corpuscular hemoglobin (MCH) determinationOrdered By: Megan Montoya on 09-03-2024 MCH (RBC) [Entitic mass] 25.7 pg Low 27.0-32.0 [facility] Mean corpuscular hemoglobin concentration (MCHC) determinationOrdered By: Megan Montoya on 09-03-2024 MCHC (RBC) [Mass/Vol] 30.8 g/dL Low 32-36 [facility] Mean platelet volume determi nationOrdered By: Megan Montoya on 09-03-2024 Platelet mean volume (Bld) [Entitic vol] 10.2 fL 6.2-12.0 [facility] Microscopic analysis of urin e for red blood cells (RBC)Ordered By: Megan Montoya on 09-03-2024 Urine RBC 5-10 SEEN /hpf 0-5 [facility] Mucus LM Ql (Urine sed)Order ed By: Megan Montoya on 09-03-2024 Mucus Ql (Urine sed) 1+ /hpf [facility] Nitrite Test strip Ql (U)Ord ered By: Megan Montoya on 09-03-2024 Nitrite Ql (U) Positive High Negative [facility] Platelet countOrdered By: Johnathan Guzman on 09-03-2024 Platelets (Bld) [#/Vol] 431 10*3/uL 150-450 [facility] Potassium measurementOrdered By: Megan Montoya on 09-03-2024 Potassium [Moles/Vol] 4.4 mmol/L 3.5-5.1 [facility] Protein Test strip Ql (U)Ord ered By: Megan Montoya on 09-03-2024 Protein Ql (U) 100 mg/dl High Negative [facility] RBC Auto (Bld) [#/Vol]Ordere d By: Megan Montoya on 09-03-2024 RBC (Bld) [#/Vol] 3.69 10*6/uL Low 4.2-5.4 [facility] Serum anion gap measurementO rdered By: Megan Montoya on 09-03-2024 Anion gap [Moles/Vol] 9 mmol/L 5-15 [facility] Serum or plasma calcium reyna urement (mass/volume)Ordered By: Megan Montoya on 09-03-2024 Calcium [Mass/Vol] 9.4 mg/dL 8.5-10.1 [facility] Serum or plasma creatinine m easurement (mass/volume)Ordered By: Megan Montoya on 09-03-2024 Creatinine [Mass/Vol] 0.92 mg/dL 0.55-1.02 [facility] Comment on above: The validity of the calculated GFR & GFRAA in patients over 70 years has not been determined. Clinical correlation is essential. Serum or plasma urea nitroge n measurement (mass/volume)Ordered By: Megan Montoya on 09-03-2024 Urea nitrogen [Mass/Vol] 19 mg/dL High 7-18 [facility] Sodium levelOrdered By: Juan C Montoya on 09-03-2024 Sodium [Moles/Vol] 139 mmol/L 136-145 [facility] Urine blood detectionOrdered By: Megan Montoya on 09-03-2024 Urine Occult Blood 150 /ul High Negative [facility] Urine clarityOrdered By: Pola Montoya on 09-03-2024 Clarity (U) Cloudy Clear [facility] Urine color determinationOrd ered By: Megan Montoya on 09-03-2024 Color (U) Yellow Yellow [facility] Urine cultureOrdered By: Pola Montoya on 09-03-2024 Bacteria identified Cx Nom (U) Proteus mirabilis Abnormal [facility] Bacteria identified Cx Nom (U) Klebsiella pneumoniae sp pneum Abnormal [facility] Bacteria identified Cx Nom (U) Proteus mirabilis Abnormal [facility] Bacteria identified Cx Nom (U) Klebsiella pneumoniae sp pneum Abnormal [facility] Urine leukocyte esterase det ection by dipstickOrdered By: Megan Montoya on 09-03-2024 Leukocyte esterase Test strip Ql (U) 500 /ul High Negative [facility] Urine pHOrdered By: Megan jimenez on 09-03-2024 pH (U) 6.0 [pH] 5.0 - 8.0 [facility] Urine sediment bacteria coun t by microscopy (number/high power field)Ordered By: Megan Montoya on 09-03-2024 Bacteria LM.HPF (Urine sed) [#/Area] 4 /[HPF] None Seen [facility] Urine specific gravity measu rementOrdered By: Megan Montoya on 09-03-2024 Specific gravity (U) [Rel density] 1.020 1.002-1.030 [facility] Urobilinogen Ql (U)Ordered B y: Megan Montoya on 09-03-2024 Urine Urobilinogen Normal mg/dl Normal [facility] White blood cell (WBC) count Ordered By: Megan Montoya on 09-03-2024 WBC (Bld) [#/Vol] 10.6 10*3/uL 4.4-11.0 [facility] White blood cell countOrdere d By: Megan Montoya on 09-03-2024 Urine WBC 50-100 SEEN /hpf 0-5 [facility] [id number] 08-27-2024 [id number] Patient Choice Patient Name: MEL POP Date of : 1940 Normal [facility] Progress Noteon 08-22-2024 Progress Note Normal [facility] Albumin to globulin ratioOrd ered By: Megan Montoya on 08-20-2024 Albumin/Globulin [Mass ratio] 0.7 {ratio} Low 0.9-2.4 [facility] Bilirubin, totalOrdered By: Megan Montoya on 08-20-2024 Bilirubin [Mass/Vol] 0.60 mg/dL 0.20-1.00 [facility] Comment on above: For patients on eltr ombopag therapy, use of Dimension [place] TBIL is not recommended. Blood urea nitrogen (BUN)/cr eatinine ratioOrdered By: Megan Montoya on 08-20-2024 Urea nitrogen/Creatinine [Mass ratio] 11.2 mg/mg 10-20 [facility] CBC-Complete Blood Cnt No Di ffon 08-20-2024 Erythrocyte distribution width (RBC) [Ratio] 19.2 % High 11.6-14.6 [facility] Comment on above: Performed By: #### L 100.0500, [id number] #### [facility] [address] [place], [address] Hematocrit (Bld) [Volume fraction] 33.4 % Low 37-47 [facility] Comment on above: Performed By: #### L 100.0500, [id number] #### [facility] [address] [place], [address] Hemoglobin (Bld) [Mass/Vol] 10.4 g/dL Low 12.0-15.0 [facility] Comment on above: Performed By: #### L 100.0500, [id number] #### [facility] [address] [place], [address] MCH (RBC) [Entitic mass] 26.3 pg Low 27.0-32.0 [facility] Comment on above: Performed By: #### L 100.0500, [id number] #### [facility] [address] [place], [address] MCHC (RBC) [Mass/Vol] 31.1 g/dL Low 32-36 [facility] Comment on above: Performed By: #### L 100.0500, [id number] #### [facility] [address] [place], [address] MCV (RBC) [Entitic vol] 84.6 fL Normal 81-99 [facility] Comment on above: Performed By: #### L 100.0500, [id number] #### [facility] [address] [place], [address] Platelet mean volume (Bld) [Entitic vol] 9.7 fL Normal 6.2-12.0 [facility] Comment on above: Performed By: #### L 100.0500, [id number] #### [facility] [address] [place], [address] Platelets (Bld) [#/Vol] 405 10*3/uL Normal 150-450 [facility] Comment on above: Performed By: #### L 100.0500, [id number] #### [facility] [address] [place], [address] RBC (Bld) [#/Vol] 3.95 10*6/uL Low 4.2-5.4 [facility] Comment on above: Performed By: #### L 100.0500, [id number] #### [facility] [address] [place], [address] RDW SD 58.9 fl High 35.1-43.9 [facility] Comment on above: Performed By: #### L 100.0500, [id number] #### [facility] [address] [place], [address] WBC (Bld) [#/Vol] 5.9 10*3/uL Normal 4.4-11.0 [facility] Comment on above: Performed By: #### L 100.0500, [id number] #### [facility] [address] [place], [address] Carbon dioxide measurementOr dered By: Megan Montoya on 08-20-2024 CO2 [Moles/Vol] 22.0 mmol/L 21.0-32.0 [facility] Chloride measurementOrdered By: Megan Montoya on 08-20-2024 Chloride [Moles/Vol] 109 mmol/L High 98-107 [facility] Comprehensive Metabolic Prof ilon 08-20-2024 Albumin [Mass/Vol] 2.7 g/dL Low 3.2-5.0 [facility] Comment on above: Performed By: #### L 100.0500, [id number] #### [facility] [address] [place], [address] Albumin/Globulin [Mass ratio] 0.7 {ratio} Low 0.9-2.4 [facility] Comment on above: Performed By: #### L 100.0500, [id number] #### [facility] [address] [place], [address] ALK P 117 U/L Normal 45-117 [facility] Comment on above: Performed By: #### L 100.0500, [id number] #### [facility] [address] [place], [address] ALT [Catalytic activity/Vol] 18 U/L Normal 13-56 [facility] Comment on above: Performed By: #### L 100.0500, [id number] #### [facility] [address] [place], [address] AST [Catalytic activity/Vol] 18 U/L Normal 15-37 [facility] Comment on above: Result Comment: Slig ht Hemolysis, Result may be falsely increased. Performed By: #### L 100.0500, [id number] #### [facility] [address] [place], [address] Bilirubin [Mass/Vol] 0.60 mg/dL Normal 0.20-1.00 [facility] Comment on above: Result Comment: For patients on eltrombopag therapy, use of Dimension [place] TBIL is not recommended. Performed By: #### L 100.0500, [id number] #### [facility] [address] [place], [address] BUN/CRE 11.2 RATIO Normal 10-20 [facility] Comment on above: Performed By: #### L 100.0500, [id number] #### [facility] [address] [place], [address] CA,Total 9.0 mg/dL Normal 8.5-10.1 [facility] Comment on above: Performed By: #### L 100.0500, [id number] #### [facility] [address] [place], [address] Chloride [Moles/Vol] 109 mmol/L High 98-107 [facility] Comment on above: Performed By: #### L 100.0500, [id number] #### [facility] [address] [place], [address] CO2 [Moles/Vol] 22.0 mmol/L Normal 21.0-32.0 [facility] Comment on above: Performed By: #### L 100.0500, [id number] #### [facility] [address] [place], [address] Creatinine [Mass/Vol] 0.98 mg/dL Normal 0.55-1.02 [facility] Comment on above: Result Comment: The validity of the calculated GFR GFRAA in patients over 70 years has not been determined. Clinical correlation is essential. Performed By: #### L 100.0500, [id number] #### [facility] [address] [place], [address] EST GFR - AA 69 mL/min Normal >60 [facility] Comment on above: Result Comment: Afri can Austrian GFR Calc Performed By: #### L 100.0500, [id number] #### [facility] [address] [place], [address] GAP 7 Normal 5-15 [facility] Comment on above: Performed By: #### L 100.0500, [id number] #### [facility] [address] [place], [address] GFR/1.73 sq M.predicted among non-blacks MDRD (S/P/Bld) [Vol rate/Area] 57 mL/min/{1.73_m2} Low >60 [facility] Comment on above: Result Comment: Non- GFR Calc Performed By: #### L 100.0500, [id number] #### [facility] [address] [place], [address] Globulin (S) [Mass/Vol] 4.1 g/dL Normal 2.2-4.2 [facility] Comment on above: Performed By: #### L 100.0500, [id number] #### [facility] [address] [place], [address] Glucose [Mass/Vol] 97 mg/dL Normal 74-106 [facility] Comment on above: Performed By: #### L 100.0500, [id number] #### [facility] [address] [place], [address] Potassium [Moles/Vol] 4.2 mmol/L Normal 3.5-5.1 [facility] Comment on above: Result Comment: Slig ht Hemolysis, Result may be falsely increased. Performed By: #### L 100.0500, L500.4050 #### [facility] [address] [place], [address] Sodium [Moles/Vol] 138 mmol/L Normal 136-145 [facility] Comment on above: Performed By: #### L 100.0500, L500.4050 #### [facility] [address] [place], [address] T PROT 6.8 g/dL Normal 6.4-8.2 [facility] Comment on above: Performed By: #### L 100.0500, L500.4050 #### [facility] [address] [place], [place], [id number] Urea nitrogen [Mass/Vol] 11 mg/dL Normal 7-18 [facility] Comment on above: Performed By: #### L 100.0500, L500.4050 #### [facility] [address] [place], [address] Erythrocyte distribution wid th ratioOrdered By: Megan Montoya on 08-20-2024 Erythrocyte distribution width (RBC) [Ratio] 19.2 % High 11.6-14.6 [facility] Erythrocyte distribution wid th standard deviationOrdered By: Megan Montoya on 08-20-2024 Erythrocyte distribution width (RBC) [Entitic vol] 58.9 fL High 35.1-43.9 [facility] Estimated glomerular filtrat ion rate (GFR) AmericanOrdered By: Megan Montoya on 08-20-2024 Estimated GFR (MDRD) Amer 69 mL/min >60 [facility] Comment on above: GFR Calc Glomerular filtration rate ( GFR) estimationOrdered By: Megan Montoya on 08-20-2024 Estimated GFR (MDRD) Non-Af Amer 57 mL/min Low >60 [facility] Comment on above: Non- GFR Calc Glucose measurementOrdered B y: Megan Montoya on 08-20-2024 Glucose [Mass/Vol] 97 mg/dL 74-106 [facility] Hematocrit Auto (Bld) [Volum e fraction]Ordered By: Megan Montoya on 08-20-2024 Hematocrit (Bld) [Volume fraction] 33.4 % Low 37-47 [facility] Hemoglobin measurementOrdere d By: Megan Montoya on 08-20-2024 Hemoglobin (Bld) [Mass/Vol] 10.4 g/dL Low 12.0-15.0 [facility] - Chemistry and C hemistry - challengeOrdered By: Megan Montoya on 08-20-2024 AST [Catalytic activity/Vol] 18 U/L 15-37 [facility] Comment on above: Slight Hemolysis, Re sult may be falsely increased. MCV (mean corpuscular volume ) determinationOrdered By: Megan Montoya on 08-20-2024 MCV (RBC) [Entitic vol] 84.6 fL 81-99 [facility] Mean corpuscular hemoglobin (MCH) determinationOrdered By: Megan Montoya on 08-20-2024 MCH (RBC) [Entitic mass] 26.3 pg Low 27.0-32.0 [facility] Mean corpuscular hemoglobin concentration (MCHC) determinationOrdered By: Megan Montoya on 08-20-2024 MCHC (RBC) [Mass/Vol] 31.1 g/dL Low 32-36 [facility] Mean platelet volume determi nationOrdered By: Megan Montoya on 08-20-2024 Platelet mean volume (Bld) [Entitic vol] 9.7 fL 6.2-12.0 [facility] Platelet countOrdered By: Johnathan Guzman on 08-20-2024 Platelets (Bld) [#/Vol] 405 10*3/uL 150-450 [facility] Potassium measurementOrdered By: Megan Montoya on 08-20-2024 Potassium [Moles/Vol] 4.2 mmol/L 3.5-5.1 [facility] Comment on above: Slight Hemolysis, Re sult may be falsely increased. RBC Auto (Bld) [#/Vol]Ordere d By: Megan Montoya on 08-20-2024 RBC (Bld) [#/Vol] 3.95 10*6/uL Low 4.2-5.4 [facility] Serum anion gap measurementO rdered By: Megan Montoya on 08-20-2024 Anion gap [Moles/Vol] 7 mmol/L 5-15 [facility] Serum globulin measurementOr dered By: Megan Montoya on 08-20-2024 Globulin (S) [Mass/Vol] 4.1 g/dL 2.2-4.2 [facility] Serum or plasma alanine hinojosa otransferase (ALT) measurementOrdered By: Megan Montoya on 08-20-2024 ALT [Catalytic activity/Vol] 18 U/L 13-56 [facility] Serum or plasma albumin reyna urement (mass/volume)Ordered By: Megan Montoya on 08-20-2024 Albumin [Mass/Vol] 2.7 g/dL Low 3.2-5.0 [facility] Serum or plasma alkaline silvia sphatase measurementOrdered By: Megan Montoya on 08-20-2024 ALP [Catalytic activity/Vol] 117 U/L 45-117 [facility] Serum or plasma calcium reyna urement (mass/volume)Ordered By: Megan Montoya on 08-20-2024 Calcium [Mass/Vol] 9.0 mg/dL 8.5-10.1 [facility] Serum or plasma creatinine m easurement (mass/volume)Ordered By: Megan Montoya on 08-20-2024 Creatinine [Mass/Vol] 0.98 mg/dL 0.55-1.02 [facility] Comment on above: The validity of the calculated GFR & GFRAA in patients over 70 years has not been determined. Clinical correlation is essential. Serum or plasma urea nitroge n measurement (mass/volume)Ordered By: Megan Montoya on 08-20-2024 Urea nitrogen [Mass/Vol] 11 mg/dL 7-18 [facility] Sodium levelOrdered By: Juan C Montoya on 08-20-2024 Sodium [Moles/Vol] 138 mmol/L 136-145 [facility] Total proteinOrdered By: Pola Montoya on 08-20-2024 Protein [Mass/Vol] 6.8 g/dL 6.4-8.2 [facility] White blood cell (WBC) count Ordered By: Megan Montoya on 08-20-2024 WBC (Bld) [#/Vol] 5.9 10*3/uL 4.4-11.0 [facility] [id number] 08-16-2024 [id number] [facility] [id number] [facility] [id number] MAR & Discharge med list transmitted to [facility] via Careport per TCC request. Electronically signed by JESSICA Leone [facility] [id number] [facility] - Chemistry and C hemistry - challengeon 08-16-2024 Glucose [Mass/Vol] 120 mg/dL High 70 - 100 mg/dL [facility] No Panel Informationon 08-16 Interpretation and review of laboratory results Abnormal [facility] Performed by: Inna Del Rosario [facility], [address] [place] [address], [place] [address] CLIA ID: [id number] [facility] Nursing Noteon 08-16-2024 Nursing Note Patient picked up fo r transfer to [facility] by stretcher. Report already called to GENET Garcia. Normal [facility] Nursing Note Telephone report erin led to GENET Garcia at [facility]. Normal [facility] Progress Noteon 08-16-2024 Progress Note Normal [facility] on 08-15-2024 30 Normal [facility] [id number] 08-15-2024 [id number] Authorization is pending with [facility]. Ref# [id number] to be DC'd to [facility]. Dtr Fidel Hernandez CM to follow. Normal [facility] Progress Noteon 08-15-2024 Progress Note Normal [facility] 08-14-2024 30 Normal [facility] [id number] 08-14-2024 [id number] Normal [facility] Progress Noteon 08-14-2024 Progress Note Normal [facility] Progress Note Normal [facility] Progress Note Normal [facility] 30on 08-13-2024 30 Normal [facility] 30 Normal [facility] [id number] 08-13-2024 [id number] Normal [facility] Progress Noteon 08-13-2024 Progress Note Normal [facility] Progress Note Normal [facility] 30on 08-12-2024 30 Normal [facility] Progress Noteon 08-12-2024 Progress Note Normal [facility] 30on 08-11-2024 30 Normal [facility] 30 Normal [facility] [id number] 08-11-2024 [id number] CM noted DC orders i n place, Dgt touring facilities over the weekend. [facility]. [facility] pending acceptance, updates sent via careport. [facility] Progress Noteon 08-11-2024 Progress Note [facility] 30on 08-10-2024 30 Normal [facility] [id number] 08-10-2024 [id number] Normal [facility] Progress Noteon 08-10-2024 Progress Note [facility] [id number] 08-09-2024 [id number] Normal [facility] [id number] [facility] [id number] Updated PT/OT notes placed to [facility] via Careport per [facility] request. Await review and response regarding ability to accept. TCC notified. Electronically signed by [facility] Aracelis Gardiner [facility] [phone] Patient is medically ready for dc. PT/OT both continuing to recommend SNF. [facility] manager agricultural asked to start auth. Plan to dc back to [facility] pending auth [facility] Progress Noteon 08-09-2024 Progress Note [facility] [id number] 08-08-2024 [id number] [facility] Progress Noteon 08-08-2024 Progress Note Normal [facility] Progress Note Normal [facility] Progress Note Normal [facility] 30on 08-07-2024 30 Normal [facility] 30 Normal [facility] 30 Normal [facility] [id number] 08-07-2024 [id number] Normal [facility] Progress Noteon 08-07-2024 Progress Note Normal [facility] 30on 08-06-2024 30 Normal [facility] 30 Normal [facility] [id number] 08-06-2024 [id number] Pt cont's on IV AtBs '. Plan is for pt to return to [facility]. Auth and HECTOR needed prior to DC. CM to follow. Normal [facility] [id number] Normal [facility] Comprehensive metabolic 1998 panelon 08-06-2024 Albumin [Mass/Vol] 2.4 g/dL Low 3.4 - 4.8 g/dL [facility] ALP [Catalytic activity/Vol] 72 U/L 40 - 150 U/L [facility] ALT [Catalytic activity/Vol] 24 U/L NINF - 30 U/L [facility] Anion gap [Moles/Vol] 7 mmol/L 3 - 13 mmol/L [facility] AST [Catalytic activity/Vol] [facility]L [facility] Bilirubin [Mass/Vol] 0.9 mg/dL NINF - 1.2 mg/dL [facility] Calcium [Mass/Vol] 8.4 mg/dL Low 8.8 - 10. 0 mg/dL [facility] Chloride [Moles/Vol] 115 mmol/L High 98 - 10 7 mmol/L [facility] CO2 [Moles/Vol] 17 mmol/L Low 23 - 31 mmol/L [facility] Creatinine [Mass/Vol] 0.91 mg/dL 0.57 - 1.11 mg/dL [facility] GFR/1.73 sq M.predicted (S/P/Bld) [Vol rate/Area] 62.3 mL/min - PINF [facility] Comment on above: Calculation based on the Chronic Kidney Disease Epidemiology Collaboration (CKD-EPI) equation refit without adjustment for race Glucose [Mass/Vol] 92 mg/dL 82 - 115 mg/dL [facility] Interpretation and review of laboratory results Abnormal [facility] Potassium [Moles/Vol] 3.8 mmol/L 3.5 - 5.1 mmol/L [facility] Comment on above: Plasma potassium chris ues may be up to 0.5 mmol/L lower than serum values. Protein [Mass/Vol] 5.5 g/dL Low 6.4 - 8.3 g/dL [facility] Sodium [Moles/Vol] 139 mmol/L 136 - 145 mmol/L [facility] Urea nitrogen [Mass/Vol] 9 mg/dL 9 - 23 mg/dL [facility] Consulton 08-06-2024 Consult Normal [facility] Progress Noteon 08-06-2024 Progress Note Normal [facility] Progress Note Normal [facility] 30on 08-05-2024 30 Normal [facility] System [facility] CBC W Auto Differential pane l (Bld)Ordered By: Frank Milligan on 08-05-2024 Basophils (Bld) [#/Vol] 0 10*3/uL 0.0 - 0.2 10*3/uL [facility] Basophils/100 WBC (Bld) 0.3 % 0.0 - 2.0 % [facility] Eosinophils (Bld) [#/Vol] 0.1 10*3/uL 0.0 - 0.5 10*3/uL [facility] Eosinophils/100 WBC (Bld) 1.6 % 0.0 - 6.0 % [facility] Erythrocyte distribution width (RBC) [Ratio] 18.9 % High 11.5 - 15.0 % [facility] Hematocrit (Bld) [Volume fraction] 33.3 % Low 35.0 - 47.0 % [facility] Hemoglobin (Bld) [Mass/Vol] 10.3 g/dL Low 11.7 - 16.0 g/dL [facility] Immature granulocytes (Bld) [#/Vol] 0.1 10*3/uL High NINF - 0.1 10*3/uL [facility] Immature granulocytes/100 WBC (Bld) 0.7 % 0.0 - 2.0 % [facility] Interpretation and review of laboratory results Abnormal [facility] Lymphocytes (Bld) [#/Vol] 1.1 10*3/uL 1.0 - 4.3 10*3/uL [facility] Lymphocytes/100 WBC (Bld) 15.6 % 15.0 - 45.0 % [facility] MCH (RBC) [Entitic mass] 26 pg 26.0 - 34.0 pg [facility] MCHC (RBC) [Mass/Vol] 30.9 % 30.5 - 36.0 % [facility] MCV (RBC) [Entitic vol] 84.1 fL 77.0 - 99.0 fL [facility] Monocytes (Bld) [#/Vol] 0.7 10*3/uL 0.0 - 0.9 10*3/uL [facility] Monocytes/100 WBC (Bld) 9.9 % 5.0 - 13.0 % [facility] Neutrophils (Bld) [#/Vol] 5.3 10*3/uL 1.8 - 7.5 10*3/uL [facility] Neutrophils/100 WBC (Bld) 71.9 % 38.0 - 82.0 % [facility] Nucleated RBC/100 WBC (Bld) [Ratio] 0 % [facility] Platelet mean volume (Bld) [Entitic vol] 9.2 fL 9.0 - 12.7 fL [facility] Platelets (Bld) [#/Vol] 235 10*3/uL 140 - 440 10*3/uL [facility] RBC (Bld) [#/Vol] 3.96 10*6/uL 3.80 - 5.2 0 10*6/uL [facility] WBC (Bld) [#/Vol] 7.3 10*3/uL 3.6 - 10.7 10*3/uL [facility] CBC W Auto Differential pane l (Bld)Ordered By: Aden Baires on 08-05-2024 Basophils (Bld) [#/Vol] 0 10*3/uL 0.0 - 0.2 10*3/uL [facility] Basophils/100 WBC (Bld) 0.3 % 0.0 - 2.0 % [facility] Eosinophils (Bld) [#/Vol] 0.1 10*3/uL 0.0 - 0.5 10*3/uL [facility] Eosinophils/100 WBC (Bld) 1.5 % 0.0 - 6.0 % [facility] Erythrocyte distribution width (RBC) [Ratio] 19.2 % High 11.5 - 15.0 % [facility] Hematocrit (Bld) [Volume fraction] 31.9 % Low 35.0 - 47.0 % [facility] Hemoglobin (Bld) [Mass/Vol] 9.9 g/dL Low 11.7 - 16.0 g/dL [facility] Immature granulocytes (Bld) [#/Vol] 0 10*3/uL NINF - 0.1 10*3/uL [facility] Immature granulocytes/100 WBC (Bld) 0.5 % 0.0 - 2.0 % [facility] Interpretation and review of laboratory results Abnormal [facility] Lymphocytes (Bld) [#/Vol] 1.1 10*3/uL 1.0 - 4.3 10*3/uL [facility] Lymphocytes/100 WBC (Bld) 16.6 % 15.0 - 45.0 % [facility] MCH (RBC) [Entitic mass] 26.2 pg 26.0 - 34.0 pg [facility] MCHC (RBC) [Mass/Vol] 31 % 30.5 - 36.0 % [facility] MCV (RBC) [Entitic vol] 84.4 fL 77.0 - 99.0 fL [facility] Monocytes (Bld) [#/Vol] 0.6 10*3/uL 0.0 - 0.9 10*3/uL [facility] Monocytes/100 WBC (Bld) 9.1 % 5.0 - 13.0 % [facility] Neutrophils (Bld) [#/Vol] 4.7 10*3/uL 1.8 - 7.5 10*3/uL [facility] Neutrophils/100 WBC (Bld) 72 % 38.0 - 82.0 % [facility] Nucleated RBC/100 WBC (Bld) [Ratio] 0 % [facility] Platelet mean volume (Bld) [Entitic vol] 10 fL 9.0 - 12.7 fL [facility] Platelets (Bld) [#/Vol] 242 10*3/uL 140 - 440 10*3/uL [facility] RBC (Bld) [#/Vol] 3.78 10*6/uL Low 3.80 - 5.2 0 10*6/uL [facility] WBC (Bld) [#/Vol] 6.5 10*3/uL 3.6 - 10.7 10*3/uL [facility] CBC WITH AUTO DIFFERENTIALon 08-05-2024 Basophils (Bld) [#/Vol] 0.0 10*3/uL Normal 0.0-0.2 [facility] Comment on above: Performed By: #### L [id number] ####Health Information Specialist: VELMA VALADEZ ([phone])[facility] ([address] Basophils/100 WBC (Bld) 0.3 % Normal 0.0-2.0 [facility] Comment on above: Performed By: #### L [id number] ####Health Information Specialist: VELMA VALADEZ ([phone])[facility])[address] [place] [address] Eosinophils (Bld) [#/Vol] 0.1 10*3/uL Normal 0.0-0.5 [facility] Comment on above: Performed By: #### L [id number] ####Health Information Specialist: VELMA VALADEZ ([phone])[facility])[address] [place] [address] Eosinophils/100 WBC (Bld) 1.6 % Normal 0.0-6.0 [facility] Comment on above: Performed By: #### L [id number] ####Health Information Specialist: VELMA VALADEZ ([phone])[address] Erythrocyte distribution width (RBC) [Ratio] 18.9 % High 11.5-15.0 [facility] Comment on above: Performed By: #### L [id number] ####Health Information Specialist: VELMA VALADEZ ([phone])[address] Hematocrit (Bld) [Volume fraction] 33.3 % Low 35.0-47.0 [facility] Comment on above: Performed By: #### L [id number] ####Health Information Specialist: VELMA VALADEZ ([phone])[address] Hemoglobin (Bld) [Mass/Vol] 10.3 g/dL Low 11.7-16.0 [facility] Comment on above: Performed By: #### L [id number] ####Health Information Specialist: VELMA VALADEZ ([phone])[address] IMMATURE GRANS % 0.7 % Normal 0.0-2.0 [facility] Comment on above: Performed By: #### L [id number] ####Health Information Specialist: VELMA VALADEZ ([phone])[facility])[address] [place] [address] IMMATURE GRANS ABSOLUTE 0.1 10*3/uL High <0.1 [facility] Comment on above: Performed By: #### L [id number] ####Health Information Specialist: VELMA VALADEZ ([phone])[facility])[address] [place] [address] Lymphocytes (Bld) [#/Vol] 1.1 10*3/uL Normal 1.0-4.3 [facility] Comment on above: Performed By: #### L [id number] ####Health Information Specialist: VELMA VALADEZ ([phone])[facility])[address] [place] [address] Lymphocytes/100 WBC (Bld) 15.6 % Normal 15.0-45.0 [facility] Comment on above: Performed By: #### L [id number] ####Health Information Specialist: VELMA VALADEZ ([phone])[facility])[address] [place] [address] MCH (RBC) [Entitic mass] 26.0 pg Normal 26.0-34.0 [facility] Comment on above: Performed By: #### L [id number] ####Health Information Specialist: VELMA VALADEZ ([phone])[facility])[address] [place] [address] MCHC 30.9 % Normal 30.5-36.0 [facility] Comment on above: Performed By: #### L [id number] ####Health Information Specialist: VELMA VALADEZ ([phone])[facility])[address] [place] [address] MCV (RBC) [Entitic vol] 84.1 fL Normal 77.0-99.0 [facility] Comment on above: Performed By: #### L [id number] ####Health Information Specialist: VELMA VALADEZ ([phone])[facility])[address] [place] [address] Monocytes (Bld) [#/Vol] 0.7 10*3/uL Normal 0.0-0.9 [facility] Comment on above: Performed By: #### L [id number] ####Health Information Specialist: VELMA VALADEZ ([phone])[facility] ([facility])[address] [place] [address] Monocytes/100 WBC (Bld) 9.9 % Normal 5.0-13.0 [facility] Comment on above: Performed By: #### L [id number] ####Health Information Specialist: VELMA VALADEZ ([phone])[facility] ([facility])[address] [place] [address] NEUTROPHILS ABSOLUTE 5.3 10*3/uL Normal 1.8-7.5 [facility] Comment on above: Performed By: #### L [id number] ####Health Information Specialist: VELMA VALADEZ ([phone])[facility] ([facility])[address] [place] [address] Neutrophils/100 WBC (Bld) 71.9 % Normal 38.0-82.0 [facility] Comment on above: Performed By: #### L [id number] ####Health Information Specialist: VELMA VALADEZ ([phone])[facility] ([facility])[address] [place] [address] NRBC 0.0 /100 WBCs Normal 0.0-2.0 [facility] Comment on above: Performed By: #### L [id number] ####Health Information Specialist: VELMA VALADEZ ([phone])[facility] ([facility])[address] [place] [address] Platelet mean volume (Bld) [Entitic vol] 9.2 fL Normal 9.0-12.7 [facility] Comment on above: Performed By: #### L [id number] ####Health Information Specialist: VELMA VALADEZ ([phone])[facility] ([facility])[address] [place] [address] Platelets (Bld) [#/Vol] 235 10*3/uL Normal 140-440 [facility] Comment on above: Performed By: #### L [id number] ####Health Information Specialist: VELMA VALADEZ ([phone])[facility])[address] [place] [address] RBC (Bld) [#/Vol] 3.96 10*6/uL Normal 3.80-5.20 [facility] Comment on above: Performed By: #### L [id number] ####Health Information Specialist: VELMA VALADEZ ([phone])[facility])[address] [place] [address] WBC (Bld) [#/Vol] 7.3 10*3/uL Normal 3.6-10.7 [facility] Comment on above: Performed By: #### L [id number] ####Health Information Specialist: VELMA VALADEZ ([phone])[facility] ([facility])[address] [place] [address] Basophils (Bld) [#/Vol] 0.0 10*3/uL Normal 0.0-0.2 [facility] Comment on above: Performed By: #### L [id number] ####Health Information Specialist: VELMA VALADEZ ([phone])[facility])[address] [place] [address] Basophils/100 WBC (Bld) 0.3 % Normal 0.0-2.0 [facility] Comment on above: Performed By: #### L [id number] ####Health Information Specialist: VELMA VALADEZ ([phone])[facility])[address] [place] [address] Eosinophils (Bld) [#/Vol] 0.1 10*3/uL Normal 0.0-0.5 [facility] Comment on above: Performed By: #### L [id number] ####Health Information Specialist: VELMA VALADEZ ([phone])[facility])[address] [place] [address] Eosinophils/100 WBC (Bld) 1.5 % Normal 0.0-6.0 [facility] Comment on above: Performed By: #### L [id number] ####Health Information Specialist: VELMA VALADEZ ([phone])[facility])[address] [place] [address] Erythrocyte distribution width (RBC) [Ratio] 19.2 % High 11.5-15.0 [facility] Comment on above: Performed By: #### L [id number] ####Health Information Specialist: VELMA VALADEZ ([phone])[facility])[address] [place] [address] Hematocrit (Bld) [Volume fraction] 31.9 % Low 35.0-47.0 [facility] Comment on above: Performed By: #### L [id number] ####Health Information Specialist: VELMA VALADEZ ([phone])[address] Hemoglobin (Bld) [Mass/Vol] 9.9 g/dL Low 11.7-16.0 [facility] [facility] Comment on above: Performed By: #### L [id number] ####Health Information Specialist: VELMA VALADEZ ([phone])[facility] ([facility])[address] [place] [address] IMMATURE GRANS % 0.5 % Normal 0.0-2.0 [facility] Comment on above: Performed By: #### L [id number] ####Health Information Specialist: VELMA VALADEZ ([phone])[facility])[address] [place] [address] IMMATURE GRANS ABSOLUTE 0.0 10*3/uL Normal <0.1 [facility] Comment on above: Performed By: #### L [id number] ####Health Information Specialist: VELMA VALADEZ ([phone])[facility])[address] [place] [address] Lymphocytes (Bld) [#/Vol] 1.1 10*3/uL Normal 1.0-4.3 [facility] Comment on above: Performed By: #### L [id number] ####Health Information Specialist: VELMA VALADEZ ([phone])[facility])[address] [place] [address] Lymphocytes/100 WBC (Bld) 16.6 % Normal 15.0-45.0 [facility] Comment on above: Performed By: #### L [id number] ####Health Information Specialist: VELMA VALADEZ ([phone])[facility] ([facility])[address] [place] [address] MCH (RBC) [Entitic mass] 26.2 pg Normal 26.0-34.0 [facility] Comment on above: Performed By: #### L [id number] ####Health Information Specialist: VLEMA VALADEZ ([phone])[facility])[address] [place] [address] MCHC 31.0 % Normal 30.5-36.0 [facility] Comment on above: Performed By: #### L [id number] ####Health Information Specialist: VELMA VALADEZ ([phone])[facility] ([facility])[address] [place] [address] MCV (RBC) [Entitic vol] 84.4 fL Normal 77.0-99.0 [facility] Comment on above: Performed By: #### L [id number] ####Health Information Specialist: VELMA VALADEZ ([phone])[facility] ([facility])[address] [place] [address] Monocytes (Bld) [#/Vol] 0.6 10*3/uL Normal 0.0-0.9 [facility] Comment on above: Performed By: #### L [id number] ####Health Information Specialist: VELMA VALADEZ ([phone])[facility] ([facility])[address] [place] [address] Monocytes/100 WBC (Bld) 9.1 % Normal 5.0-13.0 [facility] Comment on above: Performed By: #### L [id number] ####Health Information Specialist: VELMA VALADEZ ([phone])[facility] ([facility])[address] [place] [address] NEUTROPHILS ABSOLUTE 4.7 10*3/uL Normal 1.8-7.5 [facility] Comment on above: Performed By: #### L [id number] ####Health Information Specialist: VELMA VALADEZ ([phone])[facility] ([facility])[address] [place] [address] Neutrophils/100 WBC (Bld) 72.0 % Normal 38.0-82.0 [facility] Comment on above: Performed By: #### L [id number] ####Health Information Specialist: VELMA VALADEZ ([phone])[facility] ([facility])[address] [place] [address] NRBC 0.0 /100 WBCs Normal 0.0-2.0 [facility] Comment on above: Performed By: #### L [id number] ####Health Information Specialist: VELMA VALADEZ ([phone])[facility] ([facility])[address] [place] [address] Platelet mean volume (Bld) [Entitic vol] 10.0 fL Normal 9.0-12.7 [facility] Comment on above: Performed By: #### L [id number] ####Health Information Specialist: VELMA VALADEZ ([phone])[facility] ([facility])[address] [place] [address] [place] Platelets (Bld) [#/Vol] 242 10*3/uL Normal 140-440 [facility] Comment on above: Performed By: #### L [id number] ####Health Information Specialist: VELMA VALADEZ ([phone])[facility] ([facility])[address] [place] [address] RBC (Bld) [#/Vol] 3.78 10*6/uL Low 3.80-5.20 [facility] Comment on above: Performed By: #### L [id number] ####Health Information Specialist: VELMA VALADEZ ([phone])[facility] ([facility])[address] [place] [address] WBC (Bld) [#/Vol] 6.5 10*3/uL Normal 3.6-10.7 [facility] Comment on above: Performed By: #### L [id number] ####Health Information Specialist: VELMA VALADEZ ([phone])[facility] ([facility])[address] [place] [address] COMPREHENSIVE METABOLIC PANE Gilberto 08-05-2024 Albumin [Mass/Vol] 2.4 g/dL Low 3.4-4.8 [facility] Comment on above: Performed By: #### L [id number] ####Health Information Specialist: VELMA VALADEZ ([phone])[facility] ([facility])[address] [place] [address] ALP [Catalytic activity/Vol] 72 U/L Normal 40-150 [facility] Comment on above: Performed By: #### L [id number] ####Health Information Specialist: VELMA VALADEZ ([phone])[facility] ([facility])[address] [place] [address] ALT [Catalytic activity/Vol] 24 U/L Normal <30 [facility] Comment on above: Performed By: #### L [id number] ####Health Information Specialist: VELMA VALADEZ ([phone])[facility] ([facility])[address] [place] [address] Anion gap [Moles/Vol] 7 mmol/L Normal 3-13 [facility] Comment on above: Performed By: #### L [id number] ####Health Information Specialist: VELMA VALADEZ ([phone])[facility] ([facility])[address] [place] [address] AST [Catalytic activity/Vol] 21 U/L Normal <34 [facility] Comment on above: Performed By: #### L [id number] ####Health Information Specialist: VELMA VALADEZ ([phone])[facility] ([facility])[address] [place] [address] Bilirubin [Mass/Vol] 0.9 mg/dL Normal <1.2 [facility] Comment on above: Performed By: #### L [id number] ####Health Information Specialist: VELMA VALADEZ ([phone])[facility] ([facility])[address] [place] [address] Calcium [Mass/Vol] 8.4 mg/dL Low 8.8-10.0 [facility] Comment on above: Performed By: #### L [id number] ####Health Information Specialist: VELMA VALADEZ ([phone])[facility] ([facility])[address] [place] [address] Chloride [Moles/Vol] 115 mmol/L High 98-107 [facility] Comment on above: Performed By: #### L [id number] ####Health Information Specialist: VELMA VALADEZ ([phone])[facility] ([facility])[address] [place] [address] CO2 [Moles/Vol] 17 mmol/L Low 23-31 [facility] Comment on above: Performed By: #### L [id number] ####Health Information Specialist: VELMA VALADEZ ([phone])[facility] ([facility])[address] [place] [address] Creatinine [Mass/Vol] 0.91 mg/dL Normal 0.57-1.11 [facility] Comment on above: Performed By: #### L [id number] ####Health Information Specialist: VELMA VALADEZ ([phone])[facility] ([facility])[address] [place] [address] [place] GLOMERULAR FILTRATION RATE ML/MIN/1.73 SQ M.PREDICTED 62.3 mL/min/1.73m*2 Normal >60.0 [facility] Comment on above: Result Comment: Calc ulation based on the Chronic Kidney Disease Epidemiology Collaboration (CKD-EPI) equation refit without adjustment for race Performed By: #### L [id number] ####Health Information Specialist: VELMA VALADEZ ([phone])[facility] ([facility])[address] [place] [address] [place] Glucose [Mass/Vol] 92 mg/dL Normal 82-115 [facility] Comment on above: Performed By: #### L [id number] ####Health Information Specialist: VELMA VALADEZ ([phone])[facility] ([facility])[address] [place] [address] [place] Potassium [Moles/Vol] 3.8 mmol/L Normal 3.5-5.1 [facility] Comment on above: Result Comment: [facility] potassium values may be up to 0.5 mmol/L lower than serum values. Performed By: #### L [id number] ####Health Information Specialist: VELMA VALADEZ ([phone])[facility])[address] [place] [address] Protein [Mass/Vol] 5.5 g/dL Low 6.4-8.3 [facility] Comment on above: Performed By: #### L [id number] ####Health Information Specialist: VELMA VALADEZ ([phone])[facility] ([facility])[address] [place] [address] Sodium [Moles/Vol] 139 mmol/L Normal 136-145 [facility] Comment on above: Performed By: #### L [id number] ####Health Information Specialist: VELMA VALADEZ ([phone])[facility])[address] [place] [address] Urea nitrogen [Mass/Vol] 9 mg/dL Normal 9-23 [facility] Comment on above: Performed By: #### L [id number] ####Health Information Specialist: VELMA VALADEZ ([phone])[facility] ([facility])[address] [place] [address] Albumin [Mass/Vol] 2.3 g/dL Low 3.4-4.8 [facility] Comment on above: Performed By: #### L [id number] ####Health Information Specialist: VELMA VALADEZ ([phone])[facility])[address] [place] [address] ALP [Catalytic activity/Vol] 74 U/L Normal 40-150 [facility] Comment on above: Performed By: #### L [id number] ####Health Information Specialist: VELMA VALADEZ ([phone])[facility])[address] [place] [address] ALT [Catalytic activity/Vol] 27 U/L Normal <30 [facility] Comment on above: Performed By: #### L [id number] ####Health Information Specialist: VELMA VALADEZ ([phone])[facility])[address] [place] [address] Anion gap [Moles/Vol] 5 mmol/L Normal 3-13 [facility] Comment on above: Performed By: #### L [id number] ####Health Information Specialist: VELMA VALADEZ ([phone])[facility] ([facility])[address] [place] [address] AST [Catalytic activity/Vol] 24 U/L Normal <34 [facility] Comment on above: Performed By: #### L [id number] ####Health Information Specialist: VELMA VALADEZ ([phone])[facility] ([facility])[address] [place] [address] Bilirubin [Mass/Vol] 0.6 mg/dL Normal <1.2 [facility] Comment on above: Performed By: #### L [id number] ####Health Information Specialist: VELMA VALADEZ ([phone])[facility] ([facility])[address] [place] [address] Calcium [Mass/Vol] 8.1 mg/dL Low 8.8-10.0 [facility] Comment on above: Performed By: #### L [id number] ####Health Information Specialist: VELMA VALADEZ ([phone])[facility] ([facility])[address] [place] [address] Chloride [Moles/Vol] 108 mmol/L High 98-107 [facility] Comment on above: Performed By: #### L [id number] ####Health Information Specialist: VELAM VALADEZ ([phone])[facility] ([facility])[address] [place] [address] [place] CO2 [Moles/Vol] 21 mmol/L Low 23-31 [facility] Comment on above: Performed By: #### L [id number] ####Health Information Specialist: VELMA VALADEZ ([phone])[facility] ([facility])[address] [place] [address] Creatinine [Mass/Vol] 0.89 mg/dL Normal 0.57-1.11 [facility] Comment on above: Performed By: #### L [id number] ####Health Information Specialist: VELMA VALADEZ ([phone])[facility])[address] [place] [address] [place] GLOMERULAR FILTRATION RATE ML/MIN/1.73 SQ M.PREDICTED 64.0 mL/min/1.73m*2 Normal >60.0 [facility] Comment on above: Result Comment: Calc ulation based on the Chronic Kidney Disease Epidemiology Collaboration (CKD-EPI) equation refit without adjustment for race Performed By: #### L [id number] ####Health Information Specialist: VELMA VALADEZ ([phone])[facility] ([facility])[address] [place] [address] Glucose [Mass/Vol] 85 mg/dL Normal 82-115 [facility] Comment on above: Performed By: #### L [id number] ####Health Information Specialist: VELMA VALADEZ ([phone])[facility])[address] [place] [address] Potassium [Moles/Vol] 3.8 mmol/L Normal 3.5-5.1 [facility] Comment on above: Result Comment: [facility] potassium values may be up to 0.5 mmol/L lower than serum values. Performed By: #### L [id number] ####Health Information Specialist: VELMA VALADEZ ([phone])[facility])[address] [place] [address] [place] Protein [Mass/Vol] 5.2 g/dL Low 6.4-8.3 [facility] Comment on above: Performed By: #### L [id number] ####Health Information Specialist: VELMA VALADEZ ([phone])[facility] ([facility])[address] [place] [address] [place] Sodium [Moles/Vol] 134 mmol/L Low 136-145 [facility] Comment on above: Performed By: #### L [id number] ####Health Information Specialist: VELMA VALADEZ ([phone])[facility])[address] [place] [address] [place] Urea nitrogen [Mass/Vol] 13 mg/dL Normal 9-23 [facility] Comment on above: Performed By: #### L [id number] ####Health Information Specialist: VELMA VALADEZ ([phone])[facility] ([address] Comprehensive metabolic 1998 panelon 08-05-2024 Albumin [Mass/Vol] 2.3 g/dL Low 3.4 - 4.8 g/dL [facility] ALP [Catalytic activity/Vol] 74 U/L 40 - 150 U/L [facility] ALT [Catalytic activity/Vol] 27 U/L NINF - 30 U/L [facility] Anion gap [Moles/Vol] 5 mmol/L 3 - 13 mmol/L [facility] AST [Catalytic activity/Vol] 24 U/L NINF - 34 U/L [facility] Bilirubin [Mass/Vol] 0.6 mg/dL NINF - 1.2 mg/dL [facility] Calcium [Mass/Vol] 8.1 mg/dL Low 8.8 - 10. 0 mg/dL [facility] Chloride [Moles/Vol] 108 mmol/L High 98 - 10 7 mmol/L [facility] CO2 [Moles/Vol] 21 mmol/L Low 23 - 31 mmol/L [facility] Creatinine [Mass/Vol] 0.89 mg/dL 0.57 - 1.11 mg/dL [facility] GFR/1.73 sq M.predicted (S/P/Bld) [Vol rate/Area] 64 mL/min - PINF [facility] Comment on above: Calculation based on the Chronic Kidney Disease Epidemiology Collaboration (CKD-EPI) equation refit without adjustment for race Glucose [Mass/Vol] 85 mg/dL 82 - 115 mg/dL [facility] Interpretation and review of laboratory results Abnormal [facility] Potassium [Moles/Vol] 3.8 mmol/L 3.5 - 5.1 mmol/L [facility] Comment on above: Plasma potassium chris ues may be up to 0.5 mmol/L lower than serum values. Protein [Mass/Vol] 5.2 g/dL Low 6.4 - 8.3 g/dL [facility] Sodium [Moles/Vol] 134 mmol/L Low 136 - 145 mmol/L [facility] Urea nitrogen [Mass/Vol] 13 mg/dL 9 - 23 mg/dL [facility] Progress Noteon 08-05-2024 Progress [facility] Progress Note [facility] 30on 08-04-2024 30 Normal [facility] 30 Normal [facility] System [facility] CBC W Auto Differential pane l (Bld)Ordered By: Devika Eisenberg on 08-04-2024 Basophils (Bld) [#/Vol] 0 10*3/uL 0.0 - 0.2 10*3/uL [facility] Basophils/100 WBC (Bld) 0.2 % 0.0 - 2.0 % [facility] Eosinophils (Bld) [#/Vol] 0.1 10*3/uL 0.0 - 0.5 10*3/uL [facility] Eosinophils/100 WBC (Bld) 1.4 % 0.0 - 6.0 % [facility] Erythrocyte distribution width (RBC) [Ratio] 19.3 % High 11.5 - 15.0 % [facility] Hematocrit (Bld) [Volume fraction] 33 % Low 35.0 - 47.0 % [facility] Hemoglobin (Bld) [Mass/Vol] 10 g/dL Low 11.7 - 16.0 g/dL [facility] Immature granulocytes (Bld) [#/Vol] 0 10*3/uL NINF - 0.1 10*3/uL [facility] Immature granulocytes/100 WBC (Bld) 0.5 % 0.0 - 2.0 % [facility] Interpretation and review of laboratory results Abnormal [facility] Lymphocytes (Bld) [#/Vol] 1 10*3/uL 1.0 - 4.3 10*3/uL [facility] Lymphocytes/100 WBC (Bld) 17.7 % 15.0 - 45.0 % [facility] MCH (RBC) [Entitic mass] 25.8 pg Low 26.0 - 34.0 pg [facility] MCHC (RBC) [Mass/Vol] 30.3 % Low 30.5 - 36.0 % [facility] MCV (RBC) [Entitic vol] 85.1 fL 77.0 - 99.0 fL [facility] Monocytes (Bld) [#/Vol] 0.5 10*3/uL 0.0 - 0.9 10*3/uL [facility] Monocytes/100 WBC (Bld) 9.5 % 5.0 - 13.0 % [facility] Neutrophils (Bld) [#/Vol] 3.9 10*3/uL 1.8 - 7.5 10*3/uL [facility] Neutrophils/100 WBC (Bld) 70.7 % 38.0 - 82.0 % [facility] Nucleated RBC/100 WBC (Bld) [Ratio] 0 % [facility] Platelet mean volume (Bld) [Entitic vol] 9.8 fL 9.0 - 12.7 fL [facility] Platelets (Bld) [#/Vol] 280 10*3/uL 140 - 440 10*3/uL [facility] RBC (Bld) [#/Vol] 3.88 10*6/uL 3.80 - 5.2 0 10*6/uL [facility] WBC (Bld) [#/Vol] 5.6 10*3/uL 3.6 - 10.7 10*3/uL [facility] CBC WITH AUTO DIFFERENTIALon 08-04-2024 Basophils (Bld) [#/Vol] 0.0 10*3/uL Normal 0.0-0.2 [facility] Comment on above: Performed By: #### L [id number] ####Health Information Specialist: VELMA VALADEZ ([phone])[facility])[address] [place] [address] Basophils/100 WBC (Bld) 0.2 % Normal 0.0-2.0 [facility] Comment on above: Performed By: #### L [id number] ####Health Information Specialist: VELMA VALADEZ ([phone])[facility])[address] [place] [address] Eosinophils (Bld) [#/Vol] 0.1 10*3/uL Normal 0.0-0.5 [facility] Comment on above: Performed By: #### L [id number] ####Health Information Specialist: VELMA VALADEZ ([phone])[facility])[address] [place] [address] Eosinophils/100 WBC (Bld) 1.4 % Normal 0.0-6.0 [facility] Comment on above: Performed By: #### L [id number] ####Health Information Specialist: VELMA VALADEZ ([phone])[facility])[address] [place] [address] Erythrocyte distribution width (RBC) [Ratio] 19.3 % High 11.5-15.0 [facility] Comment on above: Performed By: #### L [id number] ####Health Information Specialist: VELMA VALADEZ ([phone])[facility])[address] [place] [address] Hematocrit (Bld) [Volume fraction] 33.0 % Low 35.0-47.0 [facility] Comment on above: Performed By: #### L [id number] ####Health Information Specialist: VELMA VALADEZ ([phone])[facility])[address] [place] [address] Hemoglobin (Bld) [Mass/Vol] 10.0 g/dL Low 11.7-16.0 [facility] Comment on above: Performed By: #### L [id number] ####Health Information Specialist: VELMA VALADEZ ([phone])[facility] ([facility])[address] [place] [address] IMMATURE GRANS % 0.5 % Normal 0.0-2.0 [facility] Comment on above: Performed By: #### L [id number] ####Health Information Specialist: VELMA VALADEZ ([phone])[facility])[address] [place] [address] IMMATURE GRANS ABSOLUTE 0.0 10*3/uL Normal <0.1 [facility] Comment on above: Performed By: #### L [id number] ####Health Information Specialist: VELMA VALADEZ ([phone])[facility])[address] [place] [address] Lymphocytes (Bld) [#/Vol] 1.0 10*3/uL Normal 1.0-4.3 [facility] Comment on above: Performed By: #### L [id number] ####Health Information Specialist: VELMA VALADEZ ([phone])[facility])[address] [place] [address] Lymphocytes/100 WBC (Bld) 17.7 % Normal 15.0-45.0 [facility] Comment on above: Performed By: #### L [id number] ####Health Information Specialist: VELMA VALADEZ ([phone])[facility])[address] [place] [address] MCH (RBC) [Entitic mass] 25.8 pg Low 26.0-34.0 [facility] Comment on above: Performed By: #### L [id number] ####Health Information Specialist: VELMA VALADEZ ([phone])[facility])[address] [place] [address] MCHC 30.3 % Low 30.5-36.0 [facility] Comment on above: Performed By: #### L [id number] ####Health Information Specialist: VELMA VALADEZ ([phone])[facility])[address] [place] [address] MCV (RBC) [Entitic vol] 85.1 fL Normal 77.0-99.0 [facility] Comment on above: Performed By: #### L [id number] ####Health Information Specialist: VELMA VALADEZ ([phone])[facility])[address] [place] [address] Monocytes (Bld) [#/Vol] 0.5 10*3/uL Normal 0.0-0.9 [facility] Comment on above: Performed By: #### L [id number] ####Health Information Specialist: VELMA VALADEZ ([phone])[facility])[address] [place] [address] Monocytes/100 WBC (Bld) 9.5 % Normal 5.0-13.0 [facility] Comment on above: Performed By: #### L [id number] ####Health Information Specialist: VELMA VALADEZ ([phone])[facility])[address] [place] [address] NEUTROPHILS ABSOLUTE 3.9 10*3/uL Normal 1.8-7.5 [facility] Comment on above: Performed By: #### L [id number] ####Health Information Specialist: VELMA VALADEZ ([phone])[facility] ([facility])[address] [place] [address] Neutrophils/100 WBC (Bld) 70.7 % Normal 38.0-82.0 [facility] Comment on above: Performed By: #### L [id number] ####Health Information Specialist: VELMA VALADEZ ([phone])[facility] ([facility])[address] [place] [address] NRBC 0.0 /100 WBCs Normal 0.0-2.0 [facility] Comment on above: Performed By: #### L [id number] ####Health Information Specialist: VELMA VALADEZ ([phone])[facility] ([facility])[address] [place] [address] Platelet mean volume (Bld) [Entitic vol] 9.8 fL Normal 9.0-12.7 [facility] Comment on above: Performed By: #### L [id number] ####Health Information Specialist: VELMA VALADEZ ([phone])[facility] ([facility])[address] [place] [address] Platelets (Bld) [#/Vol] 280 10*3/uL Normal 140-440 [facility] Comment on above: Performed By: #### L [id number] ####Health Information Specialist: VELMA VALADEZ ([phone])[facility] ([facility])[address] [place] [address] RBC (Bld) [#/Vol] 3.88 10*6/uL Normal 3.80-5.20 [facility] Comment on above: Performed By: #### L [id number] ####Health Information Specialist: VELMA VALADEZ ([phone])[facility] ([facility])[address] [place] [address] WBC (Bld) [#/Vol] 5.6 10*3/uL Normal 3.6-10.7 [facility] Comment on above: Performed By: #### L [id number] ####Health Information Specialist: VELMA VALADEZ ([phone])[facility] ([facility])[address] [place] [address] COMPREHENSIVE METABOLIC PANE Gilberto 08-04-2024 Albumin [Mass/Vol] 2.3 g/dL Low 3.4-4.8 [facility] Comment on above: Performed By: #### L AB17 ####Health Information Specialist: VELMA VALADEZ ([phone])[facility] [place] [address] ALP [Catalytic activity/Vol] 68 U/L Normal 40-150 [facility] Comment on above: Performed By: #### L AB17 ####Health Information Specialist: VELMA VALADEZ ([phone])[facility] ([facility])[address] [place] [address] ALT [Catalytic activity/Vol] 26 U/L Normal <30 [facility] Comment on above: Performed By: #### L AB17 ####Health Information Specialist: VELMA VALADEZ ([phone])[facility] ([facility] [place] [address] Anion gap [Moles/Vol] 6 mmol/L Normal 3-13 [facility] Comment on above: Performed By: #### L AB17 ####Health Information Specialist: VELMA VALADEZ ([phone])[facility] ([facility])[address] [place] [address] AST [Catalytic activity/Vol] 25 U/L Normal <34 [facility] Comment on above: Performed By: #### L AB17 ####Health Information Specialist: VELMA VALADEZ ([phone])[facility] ([facility])[address] [place] [address] [place] Bilirubin [Mass/Vol] 0.5 mg/dL Normal <1.2 [facility] Comment on above: Performed By: #### L AB17 ####Health Information Specialist: VELMA VALADEZ ([phone])[facility] ([facility])[address] [place] [address] Calcium [Mass/Vol] 8.2 mg/dL Low 8.8-10.0 [facility] Comment on above: Performed By: #### L AB17 ####Health Information Specialist: VELMA VALADEZ ([phone])[facility] ([facility])[address] [place] [address] Chloride [Moles/Vol] 112 mmol/L High 98-107 [facility] Comment on above: Performed By: #### L AB17 ####Health Information Specialist: VELMA VALADEZ ([phone])[facility] ([facility])[address] [place] [address] CO2 [Moles/Vol] 21 mmol/L Low 23-31 [facility] Comment on above: Performed By: #### L AB17 ####Health Information Specialist: VELMA VALADEZ ([phone])[facility] ([facility])[address] [place] [address] Creatinine [Mass/Vol] 1.13 mg/dL High 0.57-1.11 [facility] Comment on above: Performed By: #### L AB17 ####Health Information Specialist: VELMA VALADEZ ([phone])[facility] ([facility])[address] [place] [address] GLOMERULAR FILTRATION RATE ML/MIN/1.73 SQ M.PREDICTED 48.1 mL/min/1.73m*2 Low >60.0 [facility] Comment on above: Result Comment: Calc ulation based on the Chronic Kidney Disease Epidemiology Collaboration (CKD-EPI) equation refit without adjustment for race Performed By: #### L AB17 ####Health Information Specialist: VELMA VALADEZ ([phone])[facility] ([facility])[address] [place] [address] [place] Glucose [Mass/Vol] 153 mg/dL High 82-115 [facility] Comment on above: Performed By: #### L AB17 ####Health Information Specialist: VELMA VALADEZ ([phone])[facility] ([facility])[address] [place] [address] Potassium [Moles/Vol] 3.9 mmol/L Normal 3.5-5.1 [facility] Comment on above: Result Comment: [facility] potassium values may be up to 0.5 mmol/L lower than serum values. Performed By: #### L AB17 ####Health Information Specialist: VELMA VALADEZ ([phone])[facility] ([facility])[address] [place] [address] Protein [Mass/Vol] 5.2 g/dL Low 6.4-8.3 [facility] Comment on above: Performed By: #### L AB17 ####Health Information Specialist: VELMA VALADEZ ([phone])[facility] ([facility])[address] [place] [address] Sodium [Moles/Vol] 139 mmol/L Normal 136-145 [facility] Comment on above: Performed By: #### L AB17 ####Health Information Specialist: VELMA VALADEZ ([phone])[facility] ([facility])[address] [place] [address] Urea nitrogen [Mass/Vol] 26 mg/dL High 9-23 [facility] Comment on above: Performed By: #### L AB17 ####Health Information Specialist: VEMLA VALADEZ ([phone])[facility])[address] [place] [address] Comprehensive metabolic 1998 panelon 08-04-2024 Albumin [Mass/Vol] 2.3 g/dL Low 3.4 - 4.8 g/dL [facility] ALP [Catalytic activity/Vol] 68 U/L 40 - 150 U/L [facility] ALT [Catalytic activity/Vol] 26 U/L NINF - 30 U/L [facility] Anion gap [Moles/Vol] 6 mmol/L 3 - 13 mmol/L [facility] AST [Catalytic activity/Vol] 25 U/L NINF - 34 U/L [facility] Bilirubin [Mass/Vol] 0.5 mg/dL NINF - 1.2 mg/dL [facility] Calcium [Mass/Vol] 8.2 mg/dL Low 8.8 - 10. 0 mg/dL [facility] Chloride [Moles/Vol] 112 mmol/L High 98 - 10 7 mmol/L [facility] CO2 [Moles/Vol] 21 mmol/L Low 23 - 31 mmol/L [facility] Creatinine [Mass/Vol] 1.13 mg/dL High 0.57 - 1.11 mg/dL [facility] GFR/1.73 sq M.predicted (S/P/Bld) [Vol rate/Area] 48.1 mL/min Low - PINF [facility] Comment on above: Calculation based on the Chronic Kidney Disease Epidemiology Collaboration (CKD-EPI) equation refit without adjustment for race Glucose [Mass/Vol] 153 mg/dL High 82 - 115 mg/dL [facility] Interpretation and review of laboratory results Abnormal [facility] Potassium [Moles/Vol] 3.9 mmol/L 3.5 - 5.1 mmol/L [facility] Comment on above: Plasma potassium chris ues may be up to 0.5 mmol/L lower than serum values. Protein [Mass/Vol] 5.2 g/dL Low 6.4 - 8.3 g/dL [facility] Sodium [Moles/Vol] 139 mmol/L 136 - 145 mmol/L [facility] Urea nitrogen [Mass/Vol] 26 mg/dL High 9 - 23 mg/dL [facility] Nursing Noteon 08-04-2024 Nursing Note Bedside swallow completed. Pt passed and tolerated well tolerated well. Normal [facility] Progress Noteon 08-04-2024 Progress Note Normal [facility] 30on 08-03-2024 30 Normal [facility] 30 Normal [facility] 30 Normal [facility] [id number] 08-03-2024 [id number] Normal [facility] BASIC METABOLIC PANELon 07-18 Anion gap [Moles/Vol] 6 mmol/L Normal 3-13 [facility] Comment on above: Performed By: #### L AB15 ####Health Information Specialist: VELMA VALADEZ ([phone])[address] Calcium [Mass/Vol] 8.5 mg/dL Low 8.8-10.0 [facility] Comment on above: Performed By: #### L AB15 ####Health Information Specialist: VELMA VALADEZ ([phone])[facility] ([facility])[address] [place] [address] Chloride [Moles/Vol] 105 mmol/L Normal 98-107 [facility] Comment on above: Performed By: #### L AB15 ####Health Information Specialist: VELMA VALADEZ ([phone])[facility] ([facility])[address] [place] [address] CO2 [Moles/Vol] 27 mmol/L Normal 23-31 [facility] Comment on above: Performed By: #### L AB15 ####Health Information Specialist: VELMA VALADEZ ([phone])[facility] ([facility])[address] [place] [address] Creatinine [Mass/Vol] 1.18 mg/dL High 0.57-1.11 [facility] Comment on above: Performed By: #### L AB15 ####Health Information Specialist: VELMA VALADEZ ([phone])[facility] ([facility])[address] [place] [address] GLOMERULAR FILTRATION RATE ML/MIN/1.73 SQ M.PREDICTED 45.6 mL/min/1.73m*2 Low >60.0 [facility] Comment on above: Result Comment: Calc ulation based on the Chronic Kidney Disease Epidemiology Collaboration (CKD-EPI) equation refit without adjustment for race Performed By: #### L AB15 ####Health Information Specialist: VELMA VALADEZ ([phone])[facility] ([facility])[address] [place] [address] Glucose [Mass/Vol] 100 mg/dL Normal 82-115 [facility] Comment on above: Performed By: #### L AB15 ####Health Information Specialist: VELMA VALADEZ ([phone])[facility] ([facility])[address] [place] [address] [place] Potassium [Moles/Vol] 4.7 mmol/L Normal 3.5-5.1 [facility] Comment on above: Result Comment: [facility] potassium values may be up to 0.5 mmol/L lower than serum values. Performed By: #### L AB15 ####Health Information Specialist: VELMA VALADEZ ([phone])[facility] ([facility])[address] [place] [address] Sodium [Moles/Vol] 138 mmol/L Normal 136-145 [facility] Comment on above: Performed By: #### L AB15 ####Health Information Specialist: VELMA VALADEZ ([phone])[facility] ([facility])[address] [place] [address] Urea nitrogen [Mass/Vol] 33 mg/dL High 9-23 [facility] Comment on above: Performed By: #### L AB15 ####Health Information Specialist: VELMA VALADEZ ([phone])[facility] ([facility])[address] [place] [address] Basic metabolic 1998 panelOr dered By: Juni Millard on 08-03-2024 Anion gap [Moles/Vol] 6 mmol/L 3 - 13 mmol/L [facility] Calcium [Mass/Vol] 8.5 mg/dL Low 8.8 - 10. 0 mg/dL [facility] Chloride [Moles/Vol] 105 mmol/L 98 - 10 7 mmol/L [facility] CO2 [Moles/Vol] 27 mmol/L 23 - 31 mmol/L [facility] Creatinine [Mass/Vol] 1.18 mg/dL High 0.57 - 1.11 mg/dL [facility] GFR/1.73 sq M.predicted (S/P/Bld) [Vol rate/Area] 45.6 mL/min Low - PINF [facility] Comment on above: Calculation based on the Chronic Kidney Disease Epidemiology Collaboration (CKD-EPI) equation refit without adjustment for race Glucose [Mass/Vol] 100 mg/dL 82 - 115 mg/dL [facility] Interpretation and review of laboratory results Abnormal [facility] Potassium [Moles/Vol] 4.7 mmol/L 3.5 - 5.1 mmol/L [facility] Comment on above: Plasma potassium chris ues may be up to 0.5 mmol/L lower than serum values. Sodium [Moles/Vol] 138 mmol/L 136 - 145 mmol/L [facility] Urea nitrogen [Mass/Vol] 33 mg/dL High 9 - 23 mg/dL [facility] CBC W Auto Differential pane l (Bld)Ordered By: Christin Mayes on 08-03-2024 Erythrocyte distribution width (RBC) [Ratio] 19.4 % High 11.5 - 15.0 % [facility] Hematocrit (Bld) [Volume fraction] 38.7 % 35.0 - 47.0 % [facility] Hemoglobin (Bld) [Mass/Vol] 12.1 g/dL 11.7 - 16.0 g/dL [facility] MCH (RBC) [Entitic mass] 26 pg 26.0 - 34.0 pg [facility] MCHC (RBC) [Mass/Vol] 31.3 % 30.5 - 36.0 % [facility] MCV (RBC) [Entitic vol] 83.2 fL 77.0 - 99.0 fL [facility] Nucleated RBC/100 WBC (Bld) [Ratio] 0 % [facility] Platelet mean volume (Bld) [Entitic vol] 9.8 fL 9.0 - 12.7 fL [facility] Comment on above: MPV is a calculated measurement using platelet volume ratio Platelets (Bld) [#/Vol] 303 10*3/uL 140 - 440 10*3/uL [facility] RBC (Bld) [#/Vol] 4.65 10*6/uL 3.80 - 5.2 0 10*6/uL [facility] WBC (Bld) [#/Vol] 9.1 10*3/uL 3.6 - 10.7 10*3/uL [facility] CBC WITH AUTO DIFFERENTIALon 08-03-2024 Erythrocyte distribution width (RBC) [Ratio] 19.4 % High 11.5-15.0 [facility] Comment on above: Performed By: #### L [id number], [id number] ####Health Information Specialist: VELMA VALADEZ ([phone])[facility] ([facility])[address] [place] [address] Hematocrit (Bld) [Volume fraction] 38.7 % Normal 35.0-47.0 [facility] Comment on above: Performed By: #### L [id number], [id number] ####Health Information Specialist: VELMA VALADEZ ([phone])[facility] [place] [address] [place] Hemoglobin (Bld) [Mass/Vol] 12.1 g/dL Normal 11.7-16.0 [facility] Comment on above: Performed By: #### L [id number], [id number] ####Health Information Specialist: VELMA VALADEZ ([phone])[facility] ([facility])[address] [place] [address] MCH (RBC) [Entitic mass] 26.0 pg Normal 26.0-34.0 [facility] Comment on above: Performed By: #### L [id number], [id number] ####Health Information Specialist: VELMA VALADEZ ([phone])[facility] ([facility])[address] [place] [address] MCHC 31.3 % Normal 30.5-36.0 [facility] Comment on above: Performed By: #### Weston FREIRE, [id number] ####Health Information Specialist: VELMA VALADEZ ([phone])[facility] ([facility])[address] [place] [address] MCV (RBC) [Entitic vol] 83.2 fL Normal 77.0-99.0 [facility] Comment on above: Performed By: #### Weston [id number], [id number] ####Health Information Specialist: VELMA VALADEZ ([phone])[facility] ([facility])[address] [place] [address] NRBC 0.0 /100 WBCs Normal 0.0-2.0 [facility] Comment on above: Performed By: #### L [id number], [id number] ####Health Information Specialist: VELMA VALADEZ ([phone])[facility] ([facility])[address] [place] [address] Platelet mean volume (Bld) [Entitic vol] 9.8 fL Normal 9.0-12.7 [facility] Comment on above: Result Comment: MPV is a calculated measurement using platelet volume ratio Performed By: #### L [id number], [id number] ####Health Information Specialist: VELMA VALADEZ ([phone])[facility] ([facility])[address] Platelets (Bld) [#/Vol] 303 10*3/uL Normal 140-440 [facility] Comment on above: Performed By: #### L [id number], [id number] ####Health Information Specialist: VELMA VALADEZ ([phone])[facility] ([facility])[address] RBC (Bld) [#/Vol] 4.65 10*6/uL Normal 3.80-5.20 [facility] Comment on above: Performed By: #### L [id number], [id number] ####Health Information Specialist: VELMA VALADEZ ([phone])[facility] ([facility])[address] [place] [address] WBC (Bld) [#/Vol] 9.1 10*3/uL Normal 3.6-10.7 [facility] Comment on above: Performed By: #### L [id number], [id number] ####Health Information Specialist: VELMA VALADEZ ([phone])[facility] ([facility])[address] [place] [address] COMPREHENSIVE METABOLIC PANE Gilberto 08-03-2024 Albumin [Mass/Vol] 2.8 g/dL Low 3.4-4.8 [facility] Comment on above: Performed By: #### L AB17, [id number], LAB99 ####Health Information Specialist: VELMA VALADEZ ([phone])[facility] ([facility])[address] ALP [Catalytic activity/Vol] 82 U/L Normal 40-150 [facility] Comment on above: Performed By: #### L AB17, [id number], LAB99 ####Health Information Specialist: VELMA VALADEZ ([phone])[facility] ([facility])[address] [place] [address] [place] ALT [Catalytic activity/Vol] 26 U/L Normal <30 [facility] Comment on above: Performed By: #### L AB17, [id number], LAB99 ####Health Information Specialist: VELMA VALADEZ ([phone])[facility] ([facility])[address] Anion gap [Moles/Vol] 9 mmol/L Normal 3-13 [facility] Comment on above: Performed By: #### L AB17, [id number], LAB99 ####Health Information Specialist: VELMA VALADEZ ([phone])[facility] ([facility])[address] AST [Catalytic activity/Vol] 36 U/L High <34 [facility] Comment on above: Result Comment: TCSi gnificant interference from hemolysis. Result integrity compromised. Interpret with caution. Performed By: #### Weston REIS17, [id number], LAB99 ####Health Information Specialist: VELMA VALADEZ ([phone])[facility] ([facility])[address] [place] [address] [place] Bilirubin [Mass/Vol] 0.7 mg/dL Normal <1.2 [facility] Comment on above: Performed By: #### Weston AB17, [id number], LAB99 ####Health Information Specialist: VELMA VALADEZ ([phone])[facility] ([facility])[address] [place] [address] [place] Calcium [Mass/Vol] 9.0 mg/dL Normal 8.8-10.0 [facility] Comment on above: Performed By: #### L AB17, [id number], LAB99 ####Health Information Specialist: VELMA VALADEZ ([phone])[facility] ([facility])[address] [place] [address] [place] Chloride [Moles/Vol] 109 mmol/L High 98-107 [facility] Comment on above: Performed By: #### L AB17, [id number], LAB99 ####Health Information Specialist: VELMA VALADEZ ([phone])[facility]HEZROSANGELA [facility] ([facility])[address] [place] [address] [place] CO2 [Moles/Vol] 21 mmol/L Low 23-31 [facility] Comment on above: Performed By: #### Weston AB17, [id number], LAB99 ####Health Information Specialist: VELMA VALADEZ ([phone])[facility] ([facility])[address] Creatinine [Mass/Vol] 1.30 mg/dL High 0.57-1.11 [facility] Comment on above: Performed By: #### Weston REIS17, [id number], LAB99 ####Health Information Specialist: VELMA VALADEZ ([phone])[facility])[address] [place] [address] [place] GLOMERULAR FILTRATION RATE ML/MIN/1.73 SQ M.PREDICTED 40.6 mL/min/1.73m*2 Low >60.0 [facility] Comment on above: Result Comment: Calc ulation based on the Chronic Kidney Disease Epidemiology Collaboration (CKD-EPI) equation refit without adjustment for race Performed By: #### Weston AB17, [id number], LAB99 ####Health Information Specialist: VELMA VALADEZ ([phone])[facility] ([facility])[address] [place] [address] [place] Glucose [Mass/Vol] 103 mg/dL Normal 82-115 [facility] Comment on above: Performed By: #### Weston AB17, [id number], LAB99 ####Health Information Specialist: VELMA VALADEZ ([phone])[facility] ([facility])[address] [place] [address] [place] Potassium [Moles/Vol] 5.9 mmol/L High 3.5-5.1 [facility] Comment on above: Result Comment: TCSi gnificant interference from hemolysis. Result integrity compromised. Interpret with caution. Performed By: #### L AB17, [id number], LAB99 ####Health Information Specialist: VELMA VALADEZ ([phone])[facility] ([facility])[address] Protein [Mass/Vol] 6.7 g/dL Normal 6.4-8.3 [facility] Comment on above: Result Comment: TCPo tential interference from hemolysis Performed By: #### L AB17, [id number], LAB99 ####Health Information Specialist: VELMA VALADEZ ([phone])[facility] ([facility])[address] Sodium [Moles/Vol] 139 mmol/L Normal 136-145 [facility] Comment on above: Performed By: #### L AB17, [id number], LAB99 ####Health Information Specialist: VELMA VALADEZ ([phone])[facility] ([facility])[address] [place] [address] Urea nitrogen [Mass/Vol] 34 mg/dL High 9-23 [facility] Comment on above: Performed By: #### L AB17, [id number], LAB99 ####Health Information Specialist: VELMA VALADEZ ([phone])[facility] ([facility])[address] [place] [address] CT ABDOMEN PELVIS WO IV CONT RASTon 08-03-2024 CT ABDOMEN PELVIS WO IV CONTRAST Normal [facility] CT Abdomen and Pelvis WO con traston 08-03-2024 1. Extensive colonic diverticulosis without evidence of diverticulitis 2. Consolidation in the medial left lower lobe, possibly pneumonia 3. No bowel dilatation Report Dictated on Electronically Signed By: Ming Fry MD Electronically Signed Date/Time: 08/03/2024 4:05 AM [facility] Patient Name: MEL CARVER [...] Lymph nodes: Unremarkable. No enlarged lymph nodes. [facility] Ming Fry MD - 08/03/2024 [facility] 1940 [id number] Exam Date/Time: 08/03/2024 03:05 Procedure: CT ABDOMEN [...] Electronically Signed Date/Time: 08/03/2024 4:05 AM EST [facility] Radiology Study observation (narrative) [facility] alth CT Abdomen and Pelvis WO con trastOrdered By: Ming Fry on 08-03-2024 [facility] Work Phone: Comprehensive metabolic 1998 panelon 08-03-2024 Albumin [Mass/Vol] 2.8 g/dL Low 3.4 - 4.8 g/dL [facility] ALP [Catalytic activity/Vol] 82 U/L 40 - 150 U/L [facility] ALT [Catalytic activity/Vol] 26 U/L NINF - 30 U/L [facility] Anion gap [Moles/Vol] 9 mmol/L 3 - 13 mmol/L [facility] AST [Catalytic activity/Vol] 36 U/L [facility]/L [facility] Comment on above: TC Significant interference from hemolysis. Result integrity compromised. Interpret with caution. Bilirubin [Mass/Vol] 0.7 mg/dL NINF - 1.2 mg/dL [facility] Calcium [Mass/Vol] 9 mg/dL 8.8 - 10. 0 mg/dL [facility] Chloride [Moles/Vol] 109 mmol/L High 98 - 10 7 mmol/L [facility] CO2 [Moles/Vol] 21 mmol/L Low 23 - 31 mmol/L [facility] Creatinine [Mass/Vol] 1.3 mg/dL High 0.57 - 1.11 mg/dL [facility] GFR/1.73 sq M.predicted (S/P/Bld) [Vol rate/Area] 40.6 mL/min Low - PINF [facility] Comment on above: Calculation based on the Chronic Kidney Disease Epidemiology Collaboration (CKD-EPI) equation refit without adjustment for race Glucose [Mass/Vol] 103 mg/dL 82 - 115 mg/dL [facility] Interpretation and review of laboratory results Abnormal [facility] Potassium [Moles/Vol] 5.9 mmol/L High 3.5 - 5.1 mmol/L [facility] Comment on above: TC Significant interference from hemolysis. Result integrity compromised. Interpret with caution. Protein [Mass/Vol] 6.7 g/dL 6.4 - 8.3 g/dL [facility] Comment on above: TC Potential interference from hemolysis Sodium [Moles/Vol] 139 mmol/L 136 - 145 mmol/L [facility] Urea nitrogen [Mass/Vol] 34 mg/dL High 9 - 23 mg/dL [facility] ED Nursing Noteon 08-03-2024 ED Nursing Note Pt placed in roundtrip Normal [facility] ED Nursing Note ED CT and ED xray notified that patient is ready Normal [facility] ED Provider Noteon ED Provider Note Normal [facility] GASTROINTESTINAL PCR PANELon 08-03-2024 GASTROINTESTINAL PCR PANEL Normal [facility] Comment on above: Performed By: #### L [id number] ####Health Information Specialist: VELMA VALADEZ ([phone])[facility] ([facility])[address] [place] [address] Gastrointestinal pathogens p masoud OXANA+probe (Stl)Ordered By: Maximus Dimas on 08-03-2024 Adenovirus F 40/41 Not detected Not Detected [facility] Astrovirus Not detected Not Detected [facility] Campylobacter Not detected Not Detected [facility] Cryptosporidium Not detected Not Detected [facility] [facility] Cyclospora cayetanensis Not detected Not Detected [facility] Entamoeba histolytica Not detected Not Detected [facility] Enterotoxigenic E coli (ETEC) Not detected Not Detected [facility] Giardia lamblia Not detected Not Detected [facility] Interpretation and review of laboratory results Abnormal [facility] Norovirus GI/GII Detected Abnormal Not Detected [facility] Plesiomonas shigelloides Not detected Not Detected [facility] Rotavirus A Not detected Not Detected [facility] Salmonella Not detected Not Detected [facility] Sapovirus Not detected Not Detected [facility] Shiga toxin-producing E coli (STEC) Not detected Not Detected [facility] Shigella/Enteroinvasive E coli (EIEC) Not detected Not Detected [facility] Vibrio cholerae Not detected Not Detected [facility] Vibrio species Not detected Not Detected [facility] Yersinia enterocolitica Not detected Not Detected [facility] A positive Norovirus result on the Film Array GI panel should be interpreted in the context of the patient's history and clinical picture. If results are not consistent, result should be confirmed with a Norovirus specific assay. Methodology: Multiplex PCR [facility] LACTIC ACID WITH REFLEXon Lactate [Moles/Vol] 1.9 mmol/L Normal 0.5-2.2 [facility] Comment on above: Performed By: #### L [id number] ####Health Information Specialist: VELMA VALADEZ ([phone])[facility] ([facility])[address] [place] [address] LIPASEon 08-03-2024 Lipase [Catalytic activity/Vol] 8 U/L Normal <55 [facility] Comment on above: Performed By: #### L AB17, [id number], LAB99 ####Health Information Specialist: VELMA VALADEZ ([phone])[facility] [place] [address] Laboratory - Chemistry and C hemistry - challengeon 08-03-2024 Lactate [Moles/Vol] 1.9 mmol/L 0.5 - 2. 2 mmol/L [facility] Anion gap (Bld) [Moles/Vol] 8 mmol/L 3.00 - 13.00 [facility] Calcium.ionized (Bld) [Moles/Vol] 4.7 mg/dl 4.30 - 5.20 mg/dl [facility] Chloride [Moles/Vol] 107 mmol/L 98 - 11 4 mmol/L [facility] CO2 [Moles/Vol] 23 mmol/L 21 - 29 mmol/L [facility] Creatinine [Mass/Vol] 1.3 mg/dL 0.6 - 1.3 mg/dL [facility] GFR/1.73 sq M.predicted CKD-EPI (S/P/Bld) [Vol rate/Area] 40.6 [facility] Comment on above: KDIGO guidelines pro vide [...] 118 mg/dL High 70 - 100 mg/dL [facility] Potassium [Moles/Vol] 4.3 mmol/L 3.4 - 5.1 mmol/L [facility] Sodium [Moles/Vol] 138 mmol/L 133 - 145 mmol/L [facility] Urea (Bld) [Mass/Vol] 33 mg/dL High 4 - 22 mg/dL [facility] Lipase [Catalytic activity/Vol] 8 U/L NINF - 55 U/L [facility] Magnesium [Mass/Vol] 1.9 mg/dL 1.6 - 2 .6 mg/dL [facility] Laboratory - Microbiology an d Antimicrobial susceptibilityon 08-03-2024 FLUAV RNA OXANA+probe Ql (Resp) Not detected Not Detected [facility] FLUBV RNA OXANA+probe Ql (Resp) Not detected Not Detected [facility] RSV RNA OXANA+probe Ql (Resp) Not detected Not Detected [facility] SARS-CoV-2 (COVID-19) RNA OXANA+probe Ql (Resp) Not detected Not Detected [facility] SARS-CoV-2 (COVID-19) RNA OXANA+probe Ql (Unsp spec) Methodology: real-time, RT-PCR The SARS-CoV-2, Flu A/B, and RSV Combo assay is intended for in vitro diagnostic use under the FDA Emergency Use Authorization (EUA). This test has not been FDA cleared or approved. In compliance with this authorization, please visit www.fda.gov/media/88936 5/download or www.fda.gov/media/76873 6/download to access the applicable information sheets. [facility] MAGNESIUMon 08-03-2024 Magnesium [Mass/Vol] 1.9 mg/dL Normal 1.6-2.6 [facility] Comment on above: Result Comment: BUBBA Garcia COMMENTS:Higher values can be expected in females during menses. Performed By: #### L AB17, [id number], LAB99 ####Health Information Specialist: VELMA VALADEZ ([phone])[facility] [employer] (iSnapRL[employer])[address] [place] [address] MANUAL DIFFERENTIALon 2024 BASOPHILS (10*3/UL) IN BLOOD BY MANUAL COUNT 0.0 10*3/uL Normal 0.0-0.2 [facility] Comment on above: Performed By: #### L [id number], [id number] ####Health Information Specialist: VELMA VALADEZ ([phone])[facility] [employer] (SWRLAB)[address] [place] [address] BASOPHILS TOTAL PER COUNTED LEUKOCYTES BY MANUAL COUNT 0 Normal [facility] Comment on above: Performed By: #### L [id number], [id number] ####Health Information Specialist: VELMA VALADEZ ([phone])[facility] ([facility])[address] [place] [address] [place] BASOPHILS/100 LEUKOCYTES IN BLOOD BY MANUAL COUNT 0 % Normal 0-2 [facility] Comment on above: Performed By: #### L [id number], [id number] ####Health Information Specialist: VELMA VALADEZ ([phone])[facility] ([facility])[address] [place] [address] [place] CELLS COUNTED TOTAL (#) IN BLOOD 100 Normal [facility] Comment on above: Performed By: #### L [id number], [id number] ####Health Information Specialist: VELMA VALADEZ ([phone])[facility] ([facility])[address] [place] [address] [place] DIFFERENTIAL METHOD Automated differenti al reported after manual slide review Normal [facility] Comment on above: Performed By: #### L [id number], [id number] ####Health Information Specialist: VELMA VALADEZ ([phone])[facility] ([facility])[address] [place] [address] [place] EOSINOPHILS (10*3/UL) IN BLOOD BY MANUAL COUNT 0.1 10*3/uL Normal 0.0-0.5 [facility] Comment on above: Performed By: #### L [id number], ZID0024 ####Health Information Specialist: VELMA VALADEZ ([phone])[facility] ([facility])[address] [place] [address] [place] EOSINOPHILS TOTAL PER COUNTED LEUKOCYTES BY MANUAL COUNT 1 Normal 0-1 [facility] Comment on above: Performed By: #### L [id number], [id number] ####Health Information Specialist: VELMA AVLADEZ ([phone])[facility] ([facility])[address] [place] [address] [place] EOSINOPHILS/100 LEUKOCYTES IN BLOOD BY MANUAL COUNT 1 % Normal 0-6 [facility] Comment on above: Performed By: #### L [id number], [id number] ####Health Information Specialist: VELMA VALADEZ ([phone])[facility] ([facility])[address] [place] [address] [place] LEUKOCYTE MORPHOLOGY FINDING IN BLOOD Normal Normal [facility] Comment on above: Performed By: #### L FH5066, TLQ7436 ####Health Information Specialist: VELMA VALADEZ ([phone])[facility] ([facility])[address] [place] [address] [place] LEUKOCYTES (10*3/UL) NUCLEATED ERYTHROCYTE ADJUST 9.1 10*3/uL Normal 3.6-10.7 [facility] Comment on above: Performed By: #### L IZ0801, GTE9685 ####Health Information Specialist: VELMA VALADEZ ([phone])[facility] ([facility])[address] [place] [address] [place] LYMPHOCYTES (10*3/UL) IN BLOOD BY MANUAL COUNT 0.5 10*3/uL Low 1.0-4.3 [facility] Comment on above: Performed By: #### L [id number], [id number] ####Health Information Specialist: VELMA VALADEZ ([phone])[facility] ([facility])[address] [place] [address] [place] LYMPHOCYTES TOTAL PER COUNTED LEUKOCYTES BY MANUAL COUNT 5 Normal [facility] Comment on above: Performed By: #### L [id number], [id number] ####Health Information Specialist: VELMA VALADEZ ([phone])[facility] ([facility])[address] [place] [address] [place] LYMPHOCYTES/100 LEUKOCYTES IN BLOOD BY MANUAL COUNT 5 % Low 15-45 [facility] Comment on above: Performed By: #### L [id number], [id number] ####Health Information Specialist: VELMA VALADEZ ([phone])[facility] (SW[facility])[address] [place], [place] [address] [place] MONOCYTES (10*3/UL) IN BLOOD BY MANUAL COUNT 0.5 10*3/uL Normal 0.0-0.9 [facility] Comment on above: Performed By: #### L [id number], [id number] ####Health Information Specialist: VELMA VALADEZ ([phone])[facility] (SWRL[facility])[address] [place] [address] [place] MONOCYTES TOTAL PER COUNTED LEUKOCYTES BY MANUAL COUNT 6 Normal [facility] Comment on above: Performed By: #### L [id number], [id number] ####Health Information Specialist: VELMA VALADEZ ([phone])[facility] ([facility])[address] [place] [address] [place] MONOCYTES/100 LEUKOCYTES IN BLOOD BY MANUAL COUNT 6 % Normal 5-13 [facility] Comment on above: Performed By: #### [place] [id number], [id number] ####Health Information Specialist: VELMA VALADEZ ([phone])[facility] ([facility])[address] [place] [address] [place] NEUTROPHILS (SEGS+BANDS) (10*3/UL) BY MANUAL COUNT 7.9 10*3/uL High 1.8-7.0 [facility] Comment on above: Performed By: #### L [id number], EOR8057 ####Health Information Specialist: VELMA VALADEZ ([phone])[facility] (SWRL[facility])[address] [place] [address] [place] NEUTROPHILS TOTAL PER COUNTED LEUKOCYTES BY MANUAL COUNT 87 Normal [facility] Comment on above: Performed By: #### L [id number], [id number] ####Health Information Specialist: VELMA VALADEZ ([phone])[facility] ([facility])[address] [place] [address] [place] PLATELET MORPHOLOGY IN BLOOD Normal Normal [facility] Comment on above: Performed By: #### L [id number], [id number] ####Health Information Specialist: VELMA VALADEZ ([phone])[facility] (SWRL[facility])[address] [place] [address] [place] RBC MORPHOLOGY IN BLOOD Normal Normal [facility] Comment on above: Performed By: #### L ON7057, [id number] ####Health Information Specialist: VELMA VALADEZ ([phone])[facility] ([facility])[address] [place] [address] [place] SEGEMENTED NEUTROPHILS/100 LEUKOCYTES BY MANUAL COUNT 87 % High 38-82 [facility] Comment on above: Performed By: #### L [id number], [id number] ####Health Information Specialist: VELMA VALADEZ ([phone])[facility] ([facility])[address] [place] [address] [place] UNCLASSIFIED CELLS (10*3/UL) IN BLOOD BY MANUAL COUNT 0.1 10*3/uL Normal [facility] Comment on above: Performed By: #### L [id number], [id number] ####Health Information Specialist: VELMA VALADEZ ([phone])[facility] ([facility])[address] [place] [address] [place] UNCLASSIFIED CELLS/100 LEUKOCYTES IN BLOOD 1.00 % Normal [facility] Comment on above: Performed By: #### L [id number], [id number] ####Health Information Specialist: VELMA VALADEZ ([phone])[facility] ([facility])[address] [place] [address] [place] Magnesium [Mass/Vol]on 08-03 Higher values can be expected in females during menses. [employer] [facility] [employer] Manual differential performe d Ql (Bld)on 08-03-2024 Basophils (Bld) [#/Vol] 0 10*3/uL 0.0 - 0.2 10*3/uL [facility] [employer] [facility] [employer] Basophils Manual 0 [facility] alth Basophils/100 WBC (Bld) 0 % 0 - 2 % [facility] Cells Counted Total (Bld) [#] 100 {cells} [facility] [employer] [facility] [employer] Differential Method Automated differenti al reported after manual slide review [facility] Eosinophils (Bld) [#/Vol] 0.1 10*3/uL 0.0 - 0.5 10*3/uL [facility] Eosinophils Manual 1 0 - 1 [facility] Eosinophils/100 WBC (Bld) 1 % 0 - 6 % [facility] Leukocyte morphology finding Nom (Bld) Normal [facility] Lymphocytes (Bld) [#/Vol] 0.5 10*3/uL Low 1.0 - 4.3 10*3/uL [facility] Lymphocytes Manual 5 [facility] Lymphocytes/100 WBC (Bld) 5 % Low 15 - 45 % [facility] Monocytes (Bld) [#/Vol] 0.5 10*3/uL 0.0 - 0.9 10*3/uL [facility] Monocytes Manual 6 [facility] alth Monocytes/100 WBC (Bld) 6 % 5 - 13 % [facility] Neutrophils (Bld) [#/Vol] 7.9 10*3/uL High 1.8 - 7.0 10*3/uL [facility] Neutrophils Manual 87 [facility] Platelet morphology finding Nom (Bld) Normal [facility] RBC morphology finding Nom (Bld) Normal [facility] Segmented neutrophils/100 WBC (Bld) 87 % High 38 - 82 % [facility] Unclassified Cells % 1 % [facility] Unclassified Cells, Abs. 0.1 10*3/uL [facility] WBC corrected for nucl RBC (Bld) [#/Vol] 9.1 10*3/uL 3.6 - 10.7 10*3/uL [facility] No Panel Informationon 08-03 Interpretation and review of laboratory results Normal [facility] Interpretation and review of laboratory results Abnormal [facility] Performed by: [facility], [address] [place] [address] CLIA ID: [id number] [facility] Interpretation and review of laboratory results Normal [facility] No Panel InformationOrdered By: Christin Mayes on 08-03-2024 Interpretation and review of laboratory results Abnormal [facility] SARS-COV-2, FLU A/B, AND RSV COMBOon 08-03-2024 SARS-CoV-2 (COVID-19) RNA OXANA+probe Ql (Unsp spec) Normal [facility] Comment on above: Performed By: #### L [id number] ####Health Information Specialist: VELMA AVLADEZ ([phone])[facility] (SWRL[facility])[address] [place] [address] SARS-CoV-2, Flu A/B, and RSV Comboon 08-03-2024 Interpretation and review of laboratory results Normal [facility] XR Chest Single viewon 08-03 No acute abnormality Report Dictated on Electronically Signed By: Ming Fry MD Electronically Signed Date/Time: 08/03/2024 3:33 AM EST [facility] Patient Name: MEL CARVER RD [...] within the right humerus. No acute fracture. [facility] Ming Fry MD - 08/03/2024 Patient Name: [...] Electronically Signed Date/Time: 08/03/2024 3:33 AM EST [facility] Radiology Study observation (narrative) Inna Shannon alth XR Chest Single viewOrdered By: Ming Fry on 08-03-2024 [facility] [employer] [facility] [employer] Work Phone: ANES POSTPROC EVALon 025 ANES POSTPROC EVAL HNO ID: [id number] Author: ROBINSON BRUNNER MD Service: ? Author Type: Anesthesiologist Type: Anesthesia Postprocedure Evaluation Filed: 07/31/2024 12:48 Note Text: POST ANESTHESIA EVALUATION NOTE : 1940 Procedure Summary Date: 07/27/24 Room / Location: [address] Anesthesia Start: 1114 Anesthesia Stop: 1322 Procedures: VITRECTOMY 25G MECH PARS PLANA APPROACH W/ [...] with this procedure. Documented by Mikhail Nichols APRN.PERFORMANCE TEST CONSULTANT 07/27/2024 1:22 PM EST SIGNATURE: Robinson Pizano MD PATIENT NAME: Mel Castillo DATE: July 31, 2024 TIME: 12:46 PM CSN: [id number] Normal [facility] ANES PRE-OPon 07-27-2024 ANES PRE-OP HNO ID: [id number] Author: ROBINSON BRUNNER MD Service: ? Author Type: Anesthesiologist Type: Anesthesia Preprocedure Evaluation Filed: 07/27/2024 11:10 Note Text: ANESTHESIOLOGY DAY OF SURGERY NOTE : 1940 Procedure Information Date/Time: 07/27/24 1110 Procedures: [facility] W/ REMOVAL OF PRERETINAL CELLULAR MEMBRANE (Right: Eye) RELEASE OF VITREOUS, CHOROIDAL FLUID, PARS PLANA APPROACH (Right: Eye) Location: [place] [address] / [facility] Surgeons: Savana Lopez MD Estimated [...] tiotropium 2.5 (more content not included)... Normal [facility] OPERATIVE NOon 07-27-2024 OPERATIVE NO HNO ID: [id number] Author: SAVANA LOPEZ MD Service: Ophthalmology Author Type: Physician Type: Operative Report Filed: 07/27/2024 13:20 Note Text: [place] [address] [place] [facility] OPERATIVE REPORT LOG ID: [id number] Surgery/Procedure Date: 07/27/2024 Incision/Procedure Start Time: 11:39 AM Incision Close/Procedure End Time: 1:07 PM NAME: Mel Serna [facility] #: [id number] SURGEON(S) AND BARREL SCRAPER(S): Surgeons and Role: Panel 1: * Savana [...] was repaired by the use of max grounds and nursery specialist forceps and vitreous cutter. This was a [...] times thro (more content not included)... Normal [facility] BSCAN OD (RIGHT EYE)on 07-24 [facility] Right eye Photo documentatio non 07-24-2024 [facility] BSCAN OD (RIGHT EYE)on 07-23 Radiology Study observation (narrative) [facility] Right eye Photo documentatio non 07-23-2024 Radiology Study observation (narrative) [facility] CASE MANAGEMon 07-18-2024 CASE MANAGEM HNO ID: [id number] Author: DOMINIQUE RAMSAY LSW Service: ? Author Type: General Foreman Type: Care Mgt Progress Note Filed: 07/18/2024 [...] Arrangements: Ambulance Transportation Agency and Phone #:: [facility] [phone] Date of Trip: 07/18/24 Time of Trip: 1100 Type of Service: BLS Non-emergency Handoff Communication: Handoff to: Primary Care Physician Primary Care Physician Name/Phone: Jared Evans Additional Information: Discharge Information Row Name Admission (Current) from 07/07/2024 in [facility] H060 Intermediate Facility Agency [facility] [place] [address] Patient d/c ready to [facility] via [facility] with cigar packer and picker scheduled for 11am today by Stretcher. Patient aware of plan. Bedside RN aware of plan and provided number to call report for nurse report; call [phone] :) Joinery Machinist can transfer you to the 2nd floor. . 7000 and DC instructions sent to [facility] via [employer] and are in DC packet. DC packet in chart to go with patient. SIGNATURE: SHAQUILLE Garay PATIENT NAME: Mel Castillo DATE: July 18, 2024 TIME: 11:19 AM Normal [facility] CBC panel Auto (Bld)on 07-18 Erythrocyte distribution width (RBC) [Ratio] 17.5 % High 11.5-15.0 [facility] Comment on above: Order Comment: Speci men Type: BLOOD SPECIMEN Ordering Facility: [facility] Address: [address] [place] [address] Performed By: #### 5 8410-2 #### [facility] CLIA [id number] [address] [place] [address] [place] [address] [place] Hematocrit (Bld) [Volume fraction] 33.8 % Low 36.0-46.0 [facility] Comment on above: Order Comment: Speci men Type: BLOOD SPECIMEN Ordering Facility: [facility] Address: [address] [place] [address] Performed By: #### 5 8410-2 #### [facility] CLIA [id number] [address] [place] [address] [place] Hemoglobin (Bld) [Mass/Vol] 10.5 g/dL Low 11.5-15.5 [facility] Comment on above: Order Comment: Speci men Type: BLOOD SPECIMEN Ordering Facility: [facility] Address: [address] [place] [address] Performed By: #### 5 8410-2 #### [facility] CLIA [id number] [address] [place] [address] [place] MCH (RBC) [Entitic mass] 26.0 pg Normal 26.0-34.0 [facility] Comment on above: Order Comment: Speci men Type: BLOOD SPECIMEN Ordering Facility: [facility] Address: [address] [place] [address] Performed By: #### 5 8410-2 #### [facility] CLIA [id number] [address] [place] [address] [place] MCHC (RBC) [Mass/Vol] 31.1 g/dL Normal 30.5-36.0 [facility] Comment on above: Order Comment: Speci men Type: BLOOD SPECIMEN Ordering Facility: [facility] Address: [address] [place] [address] Performed By: #### 5 8410-2 #### [facility] CLIA [id number] [address] [place] [address] [place] MCV (RBC) [Entitic vol] 83.7 fL Normal 80.0-100.0 [facility] Comment on above: Order Comment: Speci men Type: BLOOD SPECIMEN Ordering Facility: [facility] Address: [address] [place] [address] Performed By: #### 5 8410-2 #### [facility] CLIA [id number] [address] [place] [address] [place] Nucleated RBC (Bld) [#/Vol] 10*3/uL Normal <0.01 [facility] Comment on above: Order Comment: Speci men Type: BLOOD SPECIMEN Ordering Facility: [facility] Address: [address] [place] [address] Performed By: #### 5 8410-2 #### [facility] CLIA [id number] [address] [place] [address] [place] Platelet mean volume (Bld) [Entitic vol] 9.3 fL Normal 9.0-12.7 [facility] Comment on above: Order Comment: Speci men Type: BLOOD SPECIMEN Ordering Facility: [facility] Address: [address] [place] [address] Performed By: #### 5 8410-2 #### [facility] CLIA [id number] [address] [place] [address] [place] Platelets (Bld) [#/Vol] 386 10*3/uL Normal 150-400 [facility] Comment on above: Order Comment: Speci men Type: BLOOD SPECIMEN Ordering Facility: [facility] Address: [address] [place] [address] Performed By: #### 5 8410-2 #### [facility] CLIA [id number] [address] [place] [address] [place] RBC (Bld) [#/Vol] 4.04 10*6/uL Normal 3.90-5.20 [facility] Comment on above: Order Comment: Speci men Type: BLOOD SPECIMEN Ordering Facility: [facility] Address: [address] [place] [address] Performed By: #### 5 8410-2 #### [facility] CLIA [id number] [address] [place], [place] [address] [address] [place] WBC (Bld) [#/Vol] 10.81 10*3/uL Normal 3.70-11.00 [facility] Comment on above: Order Comment: Speci men Type: BLOOD SPECIMEN Ordering Facility: [facility] Address: [address] [place] [address] Performed By: #### 5 8410-2 #### [facility] CLIA [id number] [address] [place] [address] [place] CNDSon 07-18-2024 CNDS HNO ID: [id number] Author: BRIANA PRITCHARD MD Service: General Internal [...] May 2024 who presents to OSH from [facility] for further evaluation of R acute [...] hemorraghic cho (more content not included)... Normal [facility] Renal function 2000 panelon 07-18-2024 Albumin [Mass/Vol] 3.2 g/dL Low 3.9-4.9 [facility] Rehabilitation Comment on above: Order Comment: Speci men Type: BLOOD SPECIMEN Ordering Facility: [facility] Address: [address] [place] [address] Performed By: #### 2 4362-6 #### [facility] CLIA [id number] [address] [place] [address] [place] Anion gap [Moles/Vol] 11 mmol/L Normal 8-15 [facility] Comment on above: Order Comment: Speci men Type: BLOOD SPECIMEN Ordering Facility: [facility] Address: [address] [place] [address] Performed By: #### 2 4362-6 #### [facility] CLIA [id number] [address] [place] [address] [place] Calcium [Mass/Vol] 9.3 mg/dL Normal 8.5-10.2 [facility] Comment on above: Order Comment: Speci men Type: BLOOD SPECIMEN Ordering Facility: [facility] Address: [address] [place] [address] Performed By: #### 2 4362-6 #### [facility] CLIA [id number] [address] [place] [address] [place] Chloride [Moles/Vol] 102 mmol/L Normal 98-107 [facility] Comment on above: Order Comment: Speci men Type: BLOOD SPECIMEN Ordering Facility: [facility] Address: [address] [place] [address] Performed By: #### 2 4362-6 #### [facility] CLIA [id number] [address] [place] [address] [place] CO2 [Moles/Vol] 25 mmol/L Normal 22-30 [facility] Comment on above: Order Comment: Speci men Type: BLOOD SPECIMEN Ordering Facility: [facility] Address: [address] [place] [address] Performed By: #### 2 4362-6 #### [facility] CLIA [id number] [address] [place] [address] [place] Creatinine [Mass/Vol] 0.90 mg/dL Normal 0.58-0.96 [facility] Comment on above: Order Comment: Speci men Type: BLOOD SPECIMEN Ordering Facility: [facility] Address: [address] [place] [address] Performed By: #### 2 4362-6 #### [facility] CLIA [id number] [address] [place] [address] [place] Creatinine and Glomerular filtration rate.predicted panel (S/P/Bld) 63 mL/min/1.73m??? Normal >=60 [facility] Comment on above: Order Comment: Speci men Type: BLOOD SPECIMEN Ordering Facility: [facility] Address: [address] [place] [address] Result Comment: Isa mated Glomerular Filtration Rate [...] GFR. Performed By: #### 2 4362-6 #### [facility] CLIA [id number] [address] [place] [address] [place] Glucose [Mass/Vol] 105 mg/dL High 74-99 [facility] Comment on above: Order Comment: Rhina mason Type: BLOOD SPECIMEN Ordering Facility: [facility] Address: [address] [place] [address] Result Comment: The [place] Diabetes Association (ADA) provides guidance for cutoff [...] Standards of Medical Care in Diabetes 2016, [employer]. Diabetes Care. 2016.39(Suppl 1). Performed By: #### 2 4362-6 #### [facility] CLIA [id number] [address] [place] [address] [place] Phosphate [Mass/Vol] 3.0 mg/dL Normal 2.7-4.8 [facility] Comment on above: Order Comment: Rhina mason Type: BLOOD SPECIMEN Ordering Facility: [facility] Address: [address] [place] [address] Performed By: #### 2 4362-6 #### [facility] CLIA [id number] [address] [place] [address] [place] Potassium [Moles/Vol] 4.5 mmol/L Normal 3.7-5.1 [facility] Comment on above: Order Comment: Speci men Type: BLOOD SPECIMEN Ordering Facility: [facility] Address: [address] [place] [address] Performed By: #### 2 4362-6 #### [facility] CLIA [id number] [address] [place] [address] [place] Sodium [Moles/Vol] 138 mmol/L Normal 136-144 [facility] Comment on above: Order Comment: Speci men Type: BLOOD SPECIMEN Ordering Facility: [facility] Address: [address] [place] [address] Performed By: #### 2 4362-6 #### [facility] CLIA [id number] [address] [place] [address] [place] Urea nitrogen [Mass/Vol] 17 mg/dL Normal 7-21 [facility] Comment on above: Order Comment: Speci men Type: BLOOD SPECIMEN Ordering Facility: [facility] Address: [address] [place] [address] Performed By: #### 2 4362-6 #### [facility] CLIA [id number] [address] [place] [address] [place] CASE MANAGEMon 07-17-2024 CASE MANAGEM HNO ID: [id number] Author: ?, ?, ? Service: ? Author Type: ? Type: Care Mgt Progress Note Filed: 07/17/2024 14:07 Note Text: CARE MANAGEMENT PROGRESS NOTE SERVICE DATE: 07/17/2024 SERVICE TIME: 2:07 PM LOS: 10 days Discharge packet completed and dropped off by studio assistant Tamiko Holley. Packet is missing AVS/DC forms, please reach out to case resolution specialist with any discharge related questions. SIGNATURE: Tamiko Holley PATIENT NAME: Mel Castillo DATE: July 17, 2024 TIME: 2:07 PM Normal [facility] CASE MANAGEM HNO ID: [id number] Author: DOMINIQUE RAMSAY LSW Service: ? Author Type: General Foreman Type: Care Mgt Progress Note Filed: 07/17/2024 13:44 Note Text: CARE MANAGEMENT HOLIDAY PLANNING NOTE DISCHARGE OR POSSIBLE DISCHARGE Date/Time: 07/18 at 11am Disposition: Intermediate Facility - Precert Obtained: Yes Facility Name: [facility] Facility Phone #: Transport: Mode of Transportation: Ambulance Transportation Agency and Phone #: [facility] [phone] . Date of Trip: 07/18/2024 at 11am Other Concerns: 11 am DC via [facility] trip# #[id number] to take Pt to [facility]. Pre-cert is approved, a bed is available, and Pt is medically ready. 7000 has been tasked. DC packet has been tasked. DNR form is on green chart. Weekend [facility] Pager #: Please see Treatment Team for Care Management Weekend/Holiday coverage. SIGNATURE: SHAQUILLE Garay PATIENT NAME: Mel Castillo DATE: July 17, 2024 TIME: 1:42 PM PAGER/CONTACT #: [facility] CASE MANAGEM HNO ID: [id number] Author: BASILIA CAPPS, Mabel Service: ? Author Type: ? Type: Care Mgt Progress Note Filed: 07/17/2024 13:14 Note Text: [facility] ([facility] PRECERT NOTE [employer] MEDICARE PPO approved Intermediate Facility for [facility] . Precert approved through 07/19/2024. For any additional questions regarding approvals, transport or care management needs, please contact the CM assigned to this patient in the Treatment Team. SIGNATURE: Basilia Capps DATE: July 17, 2024 TIME: 1:14 PM [facility] CASE MANAGEM HNO ID: [id number] Author: DOMINIQUE RAMSAY LSW Service: General Internal Medicine Author Type: General Foreman Type: Care Mgt Progress Note Filed: 07/17/2024 11:29 Note Text: Attestation signed by Thomas Car DO at 07/17/2024 11:37 AM Thomas Car D.O. PGY-2 Internal Medicine Resident [facility] Click here to page July [...] * Attending Physician: Briana Pritchard MD Normal [facility] CBC panel Auto (Bld)on 07-17 Erythrocyte distribution width (RBC) [Ratio] 17.2 % High 11.5-15.0 [facility] Comment on above: Order Comment: Samiri isabella Type: BLOOD SPECIMEN Ordering Facility: [facility] Address: [address] [place] [address] Performed By: #### 2 276-4 #### [facility] [id number] [address] [place] [address] [place] Hematocrit (Bld) [Volume fraction] 32.3 % Low 36.0-46.0 [facility] Comment on above: Order Comment: Speci men Type: BLOOD SPECIMEN Ordering Facility: [facility] Address: [address] [place] [address] Performed By: #### 2 276-4 #### [facility] CLIA [id number] [address] [place] [address] [place] Hemoglobin (Bld) [Mass/Vol] 10.2 g/dL Low 11.5-15.5 [facility] Comment on above: Order Comment: Speci men Type: BLOOD SPECIMEN Ordering Facility: [facility] Address: [address] [place] [address] Performed By: #### 2 276-4 #### [facility] CLIA [id number] [address] [place] [address] [place] MCH (RBC) [Entitic mass] 26.5 pg Normal 26.0-34.0 [facility] Comment on above: Order Comment: Speci men Type: BLOOD SPECIMEN Ordering Facility: [facility] Address: [address] [place] [address] Performed By: #### 2 276-4 #### [facility] CLIA [id number] [address] [place] [address] [place] MCHC (RBC) [Mass/Vol] 31.6 g/dL Normal 30.5-36.0 [facility] Comment on above: Order Comment: Speci men Type: BLOOD SPECIMEN Ordering Facility: [facility] Address: [address] [place] [address] Performed By: #### 2 276-4 #### [facility] CLIA [id number] [address] [place] [address] [place] MCV (RBC) [Entitic vol] 83.9 fL Normal 80.0-100.0 [facility] Comment on above: Order Comment: Speci men Type: BLOOD SPECIMEN Ordering Facility: [facility] Address: [address] [place] [address] Performed By: #### 2 276-4 #### [facility] CLIA [id number] [address] [place] [address] [place] Nucleated RBC (Bld) [#/Vol] 10*3/uL Normal <0.01 [facility] Comment on above: Order Comment: Speci men Type: BLOOD SPECIMEN Ordering Facility: [facility] Address: [address] [place] [address] Performed By: #### 2 276-4 #### [facility] CLIA [id number] [address] [place] [address] [place] Platelet mean volume (Bld) [Entitic vol] 9.7 fL Normal 9.0-12.7 [facility] Comment on above: Order Comment: Speci men Type: BLOOD SPECIMEN Ordering Facility: [facility] Address: [address] [place] [address] Performed By: #### 2 276-4 #### [facility] CLIA [id number] [address] [place] [address] [place] Platelets (Bld) [#/Vol] 362 10*3/uL Normal 150-400 [facility] Comment on above: Order Comment: Speci men Type: BLOOD SPECIMEN Ordering Facility: [facility] Address: [address] [place] [address] Performed By: #### 2 276-4 #### [facility] CLIA [id number] [address] [place] [address] [place] RBC (Bld) [#/Vol] 3.85 10*6/uL Low 3.90-5.20 [facility] Comment on above: Order Comment: Speci men Type: BLOOD SPECIMEN Ordering Facility: [facility] Address: [address] [place] [address] Performed By: #### 2 276-4 #### [facility] CLIA [id number] [address] [place] [address] [place] WBC (Bld) [#/Vol] 9.41 10*3/uL Normal 3.70-11.00 [facility] Comment on above: Order Comment: Speci men Type: BLOOD SPECIMEN Ordering Facility: [facility] Taylor Patiño Address: [address] [place] [address] Performed By: #### 2 276-4 #### [facility] CLIA [id number] [address] [place] [address] [place] Renal function 2000 panelon 07-17-2024 Albumin [Mass/Vol] 3.3 g/dL Low 3.9-4.9 [facility] Comment on above: Order Comment: Speci men Type: BLOOD SPECIMENOrdering Facility: [facility] Address: [address] [place] [address] Performed By: #### 2 4362-6 ####[facility] [id number] [place] [address] [place] Anion gap [Moles/Vol] 10 mmol/L Normal 8-15 [facility] Comment on above: Order Comment: Speci men Type: BLOOD SPECIMENOrdering Facility: [facility] Address: [address] [place] [address] Performed By: #### 2 4362-6 ####[facility] [id number] [place] [address] [place] Calcium [Mass/Vol] 9.0 mg/dL Normal 8.5-10.2 [facility] Comment on above: Order Comment: Speci men Type: BLOOD SPECIMENOrdering Facility: [facility] Address: [address] [place] [address] Performed By: #### 2 4362-6 ####[facility] [id number] [place] [address] [place] Chloride [Moles/Vol] 101 mmol/L Normal 98-107 [facility] Comment on above: Order Comment: Speci men Type: BLOOD SPECIMENOrdering Facility: [facility] Address: [address] [place] [address] Performed By: #### 2 4362-6 ####[facility] [id number] [place] [address] [place] CO2 [Moles/Vol] 25 mmol/L Normal 22-30 [facility] Comment on above: Order Comment: Speci men Type: BLOOD SPECIMENOrdering Facility: [facility] Address: [address] [place] [address] Performed By: #### 2 4362-6 ####[facility] [id number] [place] [address] [place] Creatinine [Mass/Vol] 0.94 mg/dL Normal 0.58-0.96 [facility] Comment on above: Order Comment: Speci men Type: BLOOD SPECIMENOrdering Facility: [facility] Address: [address] [place] [address] Performed By: #### 2 4362-6 ####[facility] [id number] [place] [address] [place] Creatinine and Glomerular filtration rate.predicted panel (S/P/Bld) 60 mL/min/1.73m??? Normal >=60 [facility] Comment on above: Order Comment: Speci men Type: BLOOD SPECIMENOrdering Facility: [facility] Address: [address] [place] [address] Result Comment: Isa mated Glomerular Filtration Rate [...] actual GFR. Performed By: #### 2 4362-6 ####[facility] [id number] [place] [address] [place] Glucose [Mass/Vol] 112 mg/dL High 74-99 [facility] Comment on above: Order Comment: Speci men Type: BLOOD SPECIMENOrdering Facility: [facility] Address: [address] [place] [address] Result Comment: The [place] Diabetes Association (ADA) provides guidance for cutoff [...] Standards of Medical Care in Diabetes 2016, [place] Diabetes Association. Diabetes Care. 2016.39(Suppl 1). Performed By: #### 2 4362-6 ####[facility] [id number] [place] [address] [place] Phosphate [Mass/Vol] 2.2 mg/dL Low 2.7-4.8 [facility] Comment on above: Order Comment: Samiri men Type: BLOOD SPECIMENOrdering Facility: [facility] Address: [address] [place] [address] Performed By: #### 2 4362-6 ####[facility] [id number] [place] [address] [place] Potassium [Moles/Vol] 4.6 mmol/L Normal 3.7-5.1 [facility] Comment on above: Order Comment: Samiri men Type: BLOOD SPECIMENOrdering Facility: [facility] Address: [address] [place] [address] Performed By: #### 2 4362-6 ####[facility] [id number] [place] [address] [place] Sodium [Moles/Vol] 136 mmol/L Normal 136-144 [facility] Comment on above: Order Comment: Speci men Type: BLOOD SPECIMENOrdering Facility: [facility] Address: [address] [place] [address] Performed By: #### 2 4362-6 ####[facility] [id number] [address] Urea nitrogen [Mass/Vol] 20 mg/dL Normal 7-21 [facility] Comment on above: Order Comment: Speci men Type: BLOOD SPECIMENOrdering Facility: [facility] Address: [address] [place] [address] Performed By: #### 2 4362-6 ####[facility] [id number] [address] [facility] THERAPY NTon 07-17-2024 THERAPY NT HNO ID: [id number] Author: SANTIAGO GUZMAN OT/L Service: Occupational Therapy Author Type: Occupational Therapist Type: Therapy (PT/OT/Speech/Resp) Filed: 07/17/2024 15:14 Note Text: Occupational Therapy Treatment Summary SERVICE DATE: 07/17/2024 SERVICE TIME: 1425 to 1504 ROOM: [place] [address] OT 6 Clicks Score: 15 DISCHARGE RECOMMENDATIONS [...] (ADL), Muscle Weakness (generalized) TREATMENT INTERVENTIONS Self Halfway Management (21461) Timed Code Treatment (minutes): 39 Skilled Treatment [...] Sit to Stand, Standing Balance to Improve [place] with ADLs/Self-Care, Sitting Balance to Improve [place] with ADLs/Self-Care, Life Roles/Routines/Habits THERAPEUTIC SKILLS USED [...] to Radha (more content not included)... Normal [facility] THERAPY NT HNO ID: [id number] Author: GABRIELLA DALEY, PT Service: Physical Therapy Author Type: Physical Therapist Type: Therapy (PT/OT/Speech/Resp) Filed: 07/17/2024 09:31 Note Text: Physical Therapy Evaluation Summary SERVICE DATE: 07/17/2024 SERVICE TIME: 832 to 911 ROOM: [place] [address] PT 6 Clicks Score: 18 DISCHARGE RECOMMENDATIONS [...] PRECAUTIONS Fall Risk, Lines/Tubes/Drains CURRENT HOSPITAL COURSE eMl Castillo is a 83 year old female [...] DIAGNOSIS Reduced mobility-other TREATMENT INTERVENTIONS $ Evaluation-Moderate (41504) Billed Units: 1 unit Therapeutic Activity (97609) Treatment Minutes: 10 $ Therapeutic Activity (00343) Billed Units: 1 unit Gait Training (86754) Treatment Minutes: 14 $ Gait Training (40648) Billed Units: 1 unit Evaluation, Therapeutic Activity (58710), Gait Training (32381) Timed Code Treatment (minutes): 24 Skilled Treatment [...] Conservation Training, (more content not included)... Normal [facility] BSCAN OD (RIGHT EYE)on 07-16 [facility] Radiology Study observation (narrative) [facility] CBC panel Auto (Bld)on 07-16 Erythrocyte distribution width (RBC) [Ratio] 17.8 % High 11.5-15.0 [facility] Comment on above: Order Comment: Speci men Type: BLOOD SPECIMEN Ordering Facility: [facility] Address: [address] [place] [address] Performed By: #### 5 8410-2 #### [facility] CLIA [id number] [address] [place] [address] [place] Hematocrit (Bld) [Volume fraction] 33.2 % Low 36.0-46.0 [facility] Comment on above: Order Comment: Speci men Type: BLOOD SPECIMEN Ordering Facility: [facility] Address: [address] [place] [address] Performed By: #### 5 8410-2 #### [facility] CLIA [id number] [address] [place] [address] [place] Hemoglobin (Bld) [Mass/Vol] 10.3 g/dL Low 11.5-15.5 [facility] Comment on above: Order Comment: Samiri men Type: BLOOD SPECIMEN Ordering Facility: [facility] Address: [address] [place] [address] Performed By: #### 5 8410-2 #### [facility] CLIA [id number] [address] [place] [address] [place] MCH (RBC) [Entitic mass] 25.6 pg Low 26.0-34.0 [facility] Comment on above: Order Comment: Speci men Type: BLOOD SPECIMEN Ordering Facility: [facility] Address: [address] [place] [address] Performed By: #### 5 8410-2 #### [facility] CLIA [id number] [address] [place] [address] [place] MCHC (RBC) [Mass/Vol] 31.0 g/dL Normal 30.5-36.0 [facility] Comment on above: Order Comment: Speci men Type: BLOOD SPECIMEN Ordering Facility: [facility] Address: [address] [place] [address] Performed By: #### 5 8410-2 #### [facility] CLIA [id number] [address] [place] [address] [place] MCV (RBC) [Entitic vol] 82.4 fL Normal 80.0-100.0 [facility] Comment on above: Order Comment: Speci men Type: BLOOD SPECIMEN Ordering Facility: [facility] Address: [address] [place] [address] Performed By: #### 5 8410-2 #### [facility] CLIA [id number] [address] [place] [address] [place] Nucleated RBC (Bld) [#/Vol] 10*3/uL Normal <0.01 [facility] Comment on above: Order Comment: Speci men Type: BLOOD SPECIMEN Ordering Facility: [facility] Address: [address] [place] [address] Performed By: #### 5 8410-2 #### [facility] CLIA [id number] [address] [place] [address] [place] Platelet mean volume (Bld) [Entitic vol] 9.8 fL Normal 9.0-12.7 [facility] Comment on above: Order Comment: Speci men Type: BLOOD SPECIMEN Ordering Facility: [facility] Address: [address] [place] [address] Performed By: #### 5 8410-2 #### [facility] CLIA [id number] [address] [place] [address] [place] Platelets (Bld) [#/Vol] 348 10*3/uL Normal 150-400 [facility] Comment on above: Order Comment: Speci men Type: BLOOD SPECIMEN Ordering Facility: [facility] Address: [address] [place] [address] Performed By: #### 5 8410-2 #### [facility] CLIA [id number] [address] [place] [address] [place] RBC (Bld) [#/Vol] 4.03 10*6/uL Normal 3.90-5.20 [facility] Comment on above: Order Comment: Speci men Type: BLOOD SPECIMEN Ordering Facility: [facility] Address: [address] [place] [address] Performed By: #### 5 8410-2 #### [facility] CLIA [id number] [address] [place] [address] [place] WBC (Bld) [#/Vol] 11.15 10*3/uL High 3.70-11.00 [facility] Comment on above: Order Comment: Speci men Type: BLOOD SPECIMEN Ordering Facility: [facility] Address: [address] [place] [address] Performed By: #### 5 8410-2 #### [facility] CLIA [id number] [address] [place] [address] [place] FUNDUS PHOTOS OU (BOTH EYES) on 07-16-2024 [facility] Radiology Study observation (narrative) Amarjit [facility] Renal function 2000 panelon 07-16-2024 Albumin [Mass/Vol] 3.1 g/dL Low 3.9-4.9 [facility] Comment on above: Order Comment: Speci men Type: BLOOD SPECIMENOrdering Facility: [facility] Address: [address] [place] [address] Performed By: #### 2 4362-6 ####[facility] [id number] [place] [address] [place] Anion gap [Moles/Vol] 12 mmol/L Normal 8-15 [facility] Comment on above: Order Comment: Speci men Type: BLOOD SPECIMENOrdering Facility: [facility] Address: [address] [place] [address] Performed By: #### 2 4362-6 ####[facility] [id number] [place] [address] [place] Calcium [Mass/Vol] 9.0 mg/dL Normal 8.5-10.2 [facility] [facility] Comment on above: Order Comment: Speci men Type: BLOOD SPECIMENOrdering Facility: [facility] Address: [address] [place] [address] Performed By: #### 2 4362-6 ####[facility] [id number] [place] [address] [place] Chloride [Moles/Vol] 103 mmol/L Normal 98-107 [facility] Comment on above: Order Comment: Speci men Type: BLOOD SPECIMENOrdering Facility: [facility] Address: [address] [place], [place] [address] Performed By: #### 2 4362-6 ####[facility] [id number] [place] [id number] [place] CO2 [Moles/Vol] 23 mmol/L Normal 22-30 [facility] Comment on above: Order Comment: Speci men Type: BLOOD SPECIMENOrdering Facility: [facility] Address: [address] [place], [place] [address] Performed By: #### 2 4362-6 ####[facility] [id number] [place] [address] [place] Creatinine [Mass/Vol] 1.09 mg/dL High 0.58-0.96 [facility] Comment on above: Order Comment: Speci men Type: BLOOD SPECIMENOrdering Facility: [facility] Address: [address] [facility] [address] Performed By: #### 2 4362-6 ####[facility] [id number] [place] [address] [place] Creatinine and Glomerular filtration rate.predicted panel (S/P/Bld) 50 mL/min/1.73m??? Low >=60 [facility] Comment on above: Order Comment: Speci men Type: BLOOD SPECIMENOrdering Facility: [facility] Address: [address] [place] [address] Result Comment: Isa mated Glomerular Filtration Rate [...] actual GFR. Performed By: #### 2 4362-6 ####[facility] [id number] [place] [address] [place] Glucose [Mass/Vol] 103 mg/dL High 74-99 [facility] Comment on above: Order Comment: Speci men Type: BLOOD SPECIMENOrdering Facility: [facility] Address: [address] [place] [address] Result Comment: The [employer] Diabetes Association (ADA) provides guidance for cutoff [...] Standards of Medical Care in Diabetes 2016, [employer]. Diabetes Care. 2016.39(Suppl 1). Performed By: #### 2 4362-6 ####[facility] [id number] [place] [address] [place] Phosphate [Mass/Vol] 2.9 mg/dL Normal 2.7-4.8 [facility] Comment on above: Order Comment: Speci men Type: BLOOD SPECIMENOrdering Facility: [facility] Address: [address] [place] [address] Performed By: #### 2 4362-6 ####[facility] [id number] [place] [address] [place] Potassium [Moles/Vol] 4.5 mmol/L Normal 3.7-5.1 [facility] Comment on above: Order Comment: Speci men Type: BLOOD SPECIMENOrdering Facility: [facility] Address: [address] [place] [address] Performed By: #### 2 4362-6 ####[facility] [id number] [place] [address] [place] Sodium [Moles/Vol] 138 mmol/L Normal 136-144 [facility] Comment on above: Order Comment: Speci men Type: BLOOD SPECIMENOrdering Facility: [facility] Address: [address] [place] [address] Performed By: #### 2 4362-6 ####[facility] [id number] [place] [id number] [place] Urea nitrogen [Mass/Vol] 22 mg/dL High 7-21 [facility] Comment on above: Order Comment: Speci men Type: BLOOD SPECIMENOrdering Facility: [facility] Address: [address] [place] [address] Performed By: #### 2 4362-6 ####[facility] [id number] [id number] [id number] [place] THERAPY NTon 07-16-2024 THERAPY NT HNO ID: [id number] Author: SANTIAGO GUZMAN, OT/L Service: Occupational Therapy Author Type: Occupational Therapist Type: Therapy (PT/OT/Speech/Resp) Filed: 07/16/2024 15:10 Note Text: Occupational Therapy Treatment Summary SERVICE DATE: 07/16/2024 SERVICE TIME: 1415 to 1500 ROOM: H[facility] OT 6 Clicks Score: 15 DISCHARGE RECOMMENDATIONS [...] (ADL), Muscle Weakness (generalized) TREATMENT INTERVENTIONS Self Halfway Management (77160) Timed Code Treatment (minutes): 45 Skilled Treatment [...] Sit to Stand, Standing Balance to Improve [place] with ADLs/Self-Care, Sitting Balance to Improve [place] with ADLs/Self-Care, Life Roles/Routines/Habits THERAPEUTIC SKILLS USED [...] Assistance Sit (more content not included)... Normal [facility] CBC panel Auto (Bld)on 07-15 Erythrocyte distribution width (RBC) [Ratio] 17.8 % High 11.5-15.0 [facility] Comment on above: Order Comment: Speci men Type: BLOOD SPECIMEN [facility] Address: [address] [place] [address] Performed By: #### 2 4362-6 #### [facility] CLIA [id number] [address] [place] [address] [place] Hematocrit (Bld) [Volume fraction] 34.4 % Low 36.0-46.0 [facility] Comment on above: Order Comment: Speci men Type: BLOOD SPECIMEN [facility] Address: [address] [place] [address] Performed By: #### 2 4362-6 #### [facility] CLIA [id number] [address] [place] [address] [place] Hemoglobin (Bld) [Mass/Vol] 10.7 g/dL Low 11.5-15.5 [facility] Comment on above: Order Comment: Speci men Type: BLOOD SPECIMEN [facility] Address: [address] [place] [address] Performed By: #### 2 4362-6 #### [facility] CLIA [id number] [address] [place] [address] [place] MCH (RBC) [Entitic mass] 26.2 pg Normal 26.0-34.0 [facility] Comment on above: Order Comment: Speci men Type: BLOOD SPECIMEN [facility] Address: [address] [place] [address] Performed By: #### 2 4362-6 #### [facility] CLIA [id number] [address] [place] [address] [place] MCHC (RBC) [Mass/Vol] 31.1 g/dL Normal 30.5-36.0 [facility] Comment on above: Order Comment: Speci men Type: BLOOD SPECIMEN [facility] Address: [address] [place] [address] Performed By: #### 2 4362-6 #### [facility] CLIA [id number] [address] [place] [address] [place] MCV (RBC) [Entitic vol] 84.1 fL Normal 80.0-100.0 [facility] Comment on above: Order Comment: Speci men Type: BLOOD SPECIMEN [facility] Address: [address] [place] [address] Performed By: #### 2 4362-6 #### [facility] CLIA [id number] [address] [place] [address] [place] Nucleated RBC (Bld) [#/Vol] 10*3/uL Normal <0.01 [facility] Comment on above: Order Comment: Speci men Type: BLOOD SPECIMEN [facility] Address: [address] [place] [address] Performed By: #### 2 4362-6 #### [facility] CLIA [id number] [address] [place] [address] [place] Platelet mean volume (Bld) [Entitic vol] 10.1 fL Normal 9.0-12.7 [facility] Comment on above: Order Comment: Speci men Type: BLOOD SPECIMEN [facility] Address: [address] [place] [address] Performed By: #### 2 4362-6 #### [facility] CLIA [id number] [address] [place] [address] [place] Platelets (Bld) [#/Vol] 386 10*3/uL Normal 150-400 [facility] Comment on above: Order Comment: Speci men Type: BLOOD SPECIMEN [facility] Address: [address] [place] [address] Performed By: #### 2 4362-6 #### [facility] CLIA [id number] [address] [place] [address] [place] RBC (Bld) [#/Vol] 4.09 10*6/uL Normal 3.90-5.20 [facility] Comment on above: Order Comment: Speci men Type: BLOOD SPECIMEN [facility] Address: [address] [place] [address] Performed By: #### 2 4362-6 #### [facility] CLIA [id number] [address] [place] [address] [place] WBC (Bld) [#/Vol] 10.20 10*3/uL Normal 3.70-11.00 [facility] Comment on above: Order Comment: Speci men Type: BLOOD SPECIMEN [facility] Address: [address] [place] [address] Performed By: #### 2 4362-6 #### [facility] CLIA [id number] [address] [place] [address] [place] Renal function 2000 panelon 07-15-2024 Albumin [Mass/Vol] 3.5 g/dL Low 3.9-4.9 [facility] Comment on above: Order Comment: Speci men Type: BLOOD SPECIMENOrdering Facility: [facility] Address: [address] [place] [address] Performed By: #### 2 4362-6 ####[facility] [id number] [place] [address] [place] Anion gap [Moles/Vol] 12 mmol/L Normal 8-15 [facility] Comment on above: Order Comment: Speci men Type: BLOOD SPECIMENOrdering Facility: [facility] Address: [address] [place] [address] Performed By: #### 2 4362-6 ####[facility] [id number] [address] [address] [place] Calcium [Mass/Vol] 9.1 mg/dL Normal 8.5-10.2 [facility] Comment on above: Order Comment: Speci men Type: BLOOD SPECIMENOrdering Facility: [facility] Address: [address] [place] [address] Performed By: #### 2 4362-6 ####[facility] [id number] [place] [address] [place] Chloride [Moles/Vol] 101 mmol/L Normal 98-107 [facility] Comment on above: Order Comment: Speci men Type: BLOOD SPECIMENOrdering Facility: [facility] Address: [address] [place] [address] Performed By: #### 2 4362-6 ####[facility] [id number] [place] [address] [place] CO2 [Moles/Vol] 24 mmol/L Normal 22-30 [facility] Comment on above: Order Comment: Speci men Type: BLOOD SPECIMENOrdering Facility: [facility] Address: [address] [place] [address] Performed By: #### 2 4362-6 ####[facility] [id number] [place] [address] [place] Creatinine [Mass/Vol] 0.96 mg/dL Normal 0.58-0.96 [facility] Comment on above: Order Comment: Speci men Type: BLOOD SPECIMENOrdering Facility: [facility] Address: [address] [place] [address] Performed By: #### 2 4362-6 ####[facility] [id number] [place] [address] [place] Creatinine and Glomerular filtration rate.predicted panel (S/P/Bld) 58 mL/min/1.73m??? Low >=60 [facility] Comment on above: Order Comment: Rhina mason Type: BLOOD SPECIMENOrdering Facility: [facility] Address: [address] [place] [address] Result Comment: Isa mated Glomerular Filtration Rate [...] actual GFR. Performed By: #### 2 4362-6 ####[facility] [id number] [place] [address] [place] [facility] Glucose [Mass/Vol] 93 mg/dL Normal 74-99 [facility] Comment on above: Order Comment: Rhina mason Type: BLOOD SPECIMENOrdering Facility: [facility] Address: [address] [place] [address] Result Comment: The [place] Diabetes Association (ADA) provides guidance for cutoff [...] Standards of Medical Care in Diabetes 2016, [place] [employer]. Diabetes Care. 2016.39(Suppl 1). Performed By: #### 2 4362-6 ####[facility] [id number] [address] [place] [address] [place] Phosphate [Mass/Vol] 3.1 mg/dL Normal 2.7-4.8 [facility] Comment on above: Order Comment: Speci men Type: BLOOD SPECIMENOrdering Facility: [facility] Address: [address] [place] [address] Performed By: #### 2 4362-6 ####[facility] [id number] [place] [address] [place] Potassium [Moles/Vol] 4.3 mmol/L Normal 3.7-5.1 [facility] Comment on above: Order Comment: Speci men Type: BLOOD SPECIMENOrdering Facility: [facility] Address: [address] [place] [address] Performed By: #### 2 4362-6 ####[facility] [id number] [place] [address] [place] Sodium [Moles/Vol] 137 mmol/L Normal 136-144 [facility] Comment on above: Order Comment: Speci men Type: BLOOD SPECIMENOrdering Facility: [facility] Address: [address] [place] [address] Performed By: #### 2 4362-6 ####[facility] [id number] [place] [address] [place] Urea nitrogen [Mass/Vol] 19 mg/dL Normal 7-21 [facility] Comment on above: Order Comment: Speci men Type: BLOOD SPECIMENOrdering Facility: [facility] Address: [address] [place] [address] Performed By: #### 2 4362-6 ####[facility] [id number] [place] [address] [place] CBC panel Auto (Bld)on 07-14 Erythrocyte distribution width (RBC) [Ratio] 17.9 % High 11.5-15.0 [facility] Comment on above: Order Comment: Speci men Type: BLOOD SPECIMEN [facility] Address: [address] [place] [address] Performed By: #### 2 4362-6 #### [facility] CLIA [id number] [address] [place] [address] [place] Hematocrit (Bld) [Volume fraction] 33.8 % Low 36.0-46.0 [facility] Comment on above: Order Comment: Speci men Type: BLOOD SPECIMEN [facility] Address: [address] [place] [address] Performed By: #### 2 4362-6 #### [facility] CLIA [id number] [address] [place] [address] [place] Hemoglobin (Bld) [Mass/Vol] 10.7 g/dL Low 11.5-15.5 [facility] Comment on above: Order Comment: Speci men Type: BLOOD SPECIMEN [facility] Address: [address] [place] [address] Performed By: #### 2 4362-6 #### [facility] CLIA [id number] [address] [place] [address] [place] MCH (RBC) [Entitic mass] 26.4 pg Normal 26.0-34.0 [facility] Comment on above: Order Comment: Speci men Type: BLOOD SPECIMEN [facility] Address: [address] [place] [address] Performed By: #### 2 4362-6 #### [facility] CLIA [id number] [address] [place] [address] [place] MCHC (RBC) [Mass/Vol] 31.7 g/dL Normal 30.5-36.0 [facility] Comment on above: Order Comment: Speci men Type: BLOOD SPECIMEN [facility] Address: [address] [place] [address] Performed By: #### 2 4362-6 #### [facility] CLIA [id number] [address] [place] [address] [place] MCV (RBC) [Entitic vol] 83.5 fL Normal 80.0-100.0 [facility] Comment on above: Order Comment: Speci men Type: BLOOD SPECIMEN [facility] Address: [address] [place] [address] Performed By: #### 2 4362-6 #### [facility] CLIA [id number] [address] [place] [address] [place] Nucleated RBC (Bld) [#/Vol] 10*3/uL Normal <0.01 [facility] Comment on above: Order Comment: Speci men Type: BLOOD SPECIMEN [facility] Address: [address] [place] [address] Performed By: #### 2 4362-6 #### [facility] CLIA [id number] [address] [place] [address] [place] Platelet mean volume (Bld) [Entitic vol] 10.3 fL Normal 9.0-12.7 [facility] Comment on above: Order Comment: Speci men Type: BLOOD SPECIMEN [facility] Address: [address] [place] [address] Performed By: #### 2 4362-6 #### [facility] CLIA [id number] [address] [place] [address] [place] Platelets (Bld) [#/Vol] 345 10*3/uL Normal 150-400 [facility] Comment on above: Order Comment: Speci men Type: BLOOD SPECIMEN [facility] Address: [address] [place] [address] Performed By: #### 2 4362-6 #### [facility] CLIA [id number] [address] [place] [address] [place] RBC (Bld) [#/Vol] 4.05 10*6/uL Normal 3.90-5.20 [facility] Comment on above: Order Comment: Speci men Type: BLOOD SPECIMEN [facility] Address: [address] [place] [address] Performed By: #### 2 4362-6 #### [facility] CLIA [id number] [address] [place] [address] [place] WBC (Bld) [#/Vol] 11.07 10*3/uL High 3.70-11.00 [facility] Comment on above: Order Comment: Speci men Type: BLOOD SPECIMEN [facility] Address: [address] [place] [address] Performed By: #### 2 4362-6 #### [facility] CLIA [id number] [address] [place] [address] [place] Renal function 2000 panelon 07-14-2024 Albumin [Mass/Vol] 3.5 g/dL Low 3.9-4.9 [facility] Comment on above: Order Comment: Speci men Type: BLOOD SPECIMEN [facility] Address: [address] [place] [address] Performed By: #### 2 4362-6 #### [facility] CLIA [id number] [address] [place] [address] [place] Anion gap [Moles/Vol] 14 mmol/L Normal 8-15 [facility] Comment on above: Order Comment: Speci men Type: BLOOD SPECIMEN [facility] Address: [address] [place] [address] Performed By: #### 2 4362-6 #### [facility] CLIA [id number] [address] [place] [address] [place] Calcium [Mass/Vol] 9.1 mg/dL Normal 8.5-10.2 [facility] Comment on above: Order Comment: Speci men Type: BLOOD SPECIMEN [facility] Address: [address] [place] [address] Performed By: #### 2 4362-6 #### [facility] CLIA [id number] [address] [place] [address] [place] Chloride [Moles/Vol] 98 mmol/L Normal 98-107 [facility] Comment on above: Order Comment: Speci men Type: BLOOD SPECIMEN [facility] Address: [address] [place] [address] Performed By: #### 2 4362-6 #### [facility] CLIA [id number] [address] [place] [address] [place] CO2 [Moles/Vol] 22 mmol/L Normal 22-30 [facility] Comment on above: Order Comment: Speci men Type: BLOOD SPECIMEN [facility]ing [facility] Address: [address] [place] [address] Performed By: #### 2 4362-6 #### [facility] CLIA [id number] [address] [place] [address] [place] Creatinine [Mass/Vol] 1.01 mg/dL High 0.58-0.96 [facility] Comment on above: Order Comment: Speci men Type: BLOOD SPECIMEN [facility]ing [facility] Address: [address] [place] [address] Performed By: #### 2 4362-6 #### [facility] CLIA [id number] [address] [place] [address] [place] Creatinine and Glomerular filtration rate.predicted panel (S/P/Bld) 55 mL/min/1.73m??? Low >=60 [facility] Comment on above: Order Comment: Speci men Type: BLOOD SPECIMEN [facility]ing [facility] Address: [address] [place] [address] Result Comment: Isa mated Glomerular Filtration Rate [...] GFR. Performed By: #### 2 4362-6 #### [facility] CLIA [id number] [address] [place] [address] [place] Glucose [Mass/Vol] 131 mg/dL High 74-99 [facility] Comment on above: Order Comment: Rhina mason Type: BLOOD SPECIMEN [facility]ing [facility] Address: [address] [place] [address] Result Comment: The [employer] Diabetes Association (ADA) provides guidance for cutoff [...] Standards of Medical Care in Diabetes 2016, [place] [employer]. Diabetes Care. 2016.39(Suppl 1). Performed By: #### 2 4362-6 #### [facility] CLIA [id number] [address] [place] [address] [place] Phosphate [Mass/Vol] 3.5 mg/dL Normal 2.7-4.8 [facility] Comment on above: Order Comment: Rhina mason Type: BLOOD SPECIMEN [facility]ing [facility]: [facility] Address: [address] [place] [address] Performed By: #### 2 4362-6 #### [facility] CLIA [id number] [address] [place] [address] [place] Potassium [Moles/Vol] 4.1 mmol/L Normal 3.7-5.1 [facility] Comment on above: Order Comment: Speci men Type: BLOOD SPECIMEN [facility]ing [facility] Address: [address] [place] [address] Performed By: #### 2 4362-6 #### [facility] CLIA [id number] [address] [place] [address] [place] Sodium [Moles/Vol] 134 mmol/L Low 136-144 [facility] Comment on above: Order Comment: Speci men Type: BLOOD SPECIMEN [facility]ing [facility] Address: [address] [place] [address] Performed By: #### 2 4362-6 #### [facility] CLIA [id number] [address] [place] [address] [place] Urea nitrogen [Mass/Vol] 19 mg/dL Normal 7-21 [facility] Comment on above: Order Comment: Speci men Type: BLOOD SPECIMEN [facility]ing [facility] Address: [address] [place] [address] Performed By: #### 2 4362-6 #### [facility] CLIA [id number] [address] [place] [address] [place] ANES POSTPROC EVALon -27-2 024 ANES POSTPROC EVAL HNO ID: [id number] Author: SIERRA FALK MD Service: ? Author Type: Anesthesiologist Type: Anesthesia Postprocedure Evaluation Filed: 07/13/2024 15:57 Note Text: POST ANESTHESIA EVALUATION NOTE : 1940 Procedure Summary Date: 07/13/24 Room / Location: [place] [address] / [facility] Anesthesia Start: 1222 Anesthesia Stop: 1337 Procedure: [...] July 13, 2024 TIME: 3:57 PM CSN: [id number] Normal [facility] ANES PRE-OPon 07-13-2024 ANES PRE-OP HNO ID: [id number] Author: SIERRA FALK MD Service: ? Author Type: Anesthesiologist Type: Anesthesia Preprocedure Evaluation Filed: 07/13/2024 09:44 Note Text: ANESTHESIOLOGY DAY OF SURGERY NOTE : 1940 Procedure Information Date/Time: 07/13/24 1404 Procedure: ASPIRATION VITREOUS, CHOROIDAL FLUID, PARS PLANA APPROACH (Right: Eye) Location: [place] [address] / [facility] Surgeons: Savana Lopez MD Estimated [...] 0.5 tablets by mouth every 12 hours. wneyplkkasb-xtzzarzle-d ilanter (TRELEGY ELLIPTA) 100-62.5-25 mcg inhalation powder Inhale 1 Puff as instructed once daily. acetaminophen (TYLENOL) 325 mg tablet Take 2 tablets by mouth every 6 hours as needed for pain. ascorbic acid (more content not included)... Normal [facility] CASE MANAGEMon 07-13-2024 CASE MANAGEM HNO ID: [id number] Author: REBECA BELLE LSW Service: ? Author Type: General Foreman Type: Care Mgt Progress Note Filed: 07/13/2024 16:25 Note Text: CARE MANAGEMENT WEEKEND PLANNING NOTE NO WEEKEND DISCHARGE Disposition: Intermediate Facility Anticipated Discharge Date: TBD CM followed up with pt's daughter for SNF choices. Pt is currently in the OR- unable to send referrals in careport or complete "edit note" side bar. 1)[facility] 2)[facility] 3)[facility] 4)[facility] 5)[facility] Will need accepting SNF and precert prior to dc. UPDATE 4:24pm: Referrals sent; awaiting response. Weekend [facility] Pager #: Please see Treatment Team for Care Management Weekend/Holiday coverage. SIGNATURE: SHAQUILLE Nuñez PATIENT NAME: Mel Castillo DATE: July 13, 2024 TIME: 3:09 PM PAGER/CONTACT #: [phone] Normal [facility] CBC panel Auto (Bld)on 07-13 Erythrocyte distribution width (RBC) [Ratio] 17.6 % High 11.5-15.0 [facility] Comment on above: Order Comment: Speci men Type: BLOOD SPECIMENOrdering Facility: [facility] Address: [address] [place] [address] Performed By: #### 5 8410-2 ####[facility] LAB[facility] [id number] [place] [address] [place] Hematocrit (Bld) [Volume fraction] 34.5 % Low 36.0-46.0 [facility] Comment on above: Order Comment: Speci men Type: BLOOD SPECIMENOrdering Facility: [facility] Address: [address] [place] [address] Performed By: #### 5 8410-2 ####[facility] [id number] [place] [address] [place] Hemoglobin (Bld) [Mass/Vol] 10.8 g/dL Low 11.5-15.5 [facility] Comment on above: Order Comment: Speci men Type: BLOOD SPECIMENOrdering Facility: [facility] Address: [address] [place] [address] Performed By: #### 5 8410-2 ####[facility] LABIA [id number] [place] [address] [place] MCH (RBC) [Entitic mass] 26.1 pg Normal 26.0-34.0 [facility] Comment on above: Order Comment: Speci men Type: BLOOD SPECIMENOrdering Facility: [facility] Address: [address] [place] [address] Performed By: #### 5 8410-2 ####[facility] [id number] [place] [address] [place] MCHC (RBC) [Mass/Vol] 31.3 g/dL Normal 30.5-36.0 [facility] Comment on above: Order Comment: Speci men Type: BLOOD SPECIMENOrdering Facility: [facility] Address: [address] [place] [address] Performed By: #### 5 8410-2 ####[facility] [id number] [place] [address] [place] MCV (RBC) [Entitic vol] 83.3 fL Normal 80.0-100.0 [facility] Comment on above: Order Comment: Speci men Type: BLOOD SPECIMENOrdering Facility: [facility] Address: [address] [place] [address] Performed By: #### 5 8410-2 ####[facility] LABIA [id number] [place] [address] [place] Nucleated RBC (Bld) [#/Vol] 10*3/uL Normal <0.01 [facility] Comment on above: Order Comment: Speci men Type: BLOOD SPECIMENOrdering Facility: [facility] Address: [address] [place] [address] Performed By: #### 5 8410-2 ####[facility] [id number] [place] [address] [place] Platelet mean volume (Bld) [Entitic vol] 9.7 fL Normal 9.0-12.7 [facility] Comment on above: Order Comment: Speci men Type: BLOOD SPECIMENOrdering Facility: [facility] Address: [address] [place] [address] Performed By: #### 5 8410-2 ####[facility] [id number] [place] [address] [place] Platelets (Bld) [#/Vol] 334 10*3/uL Normal 150-400 [facility] Comment on above: Order Comment: Speci men Type: BLOOD SPECIMENOrdering Facility: [facility] Address: [address] [place] [address] Performed By: #### 5 8410-2 ####[facility] LAB[facility] [id number] [place] [address] [place] RBC (Bld) [#/Vol] 4.14 10*6/uL Normal 3.90-5.20 [facility] Comment on above: Order Comment: Speci men Type: BLOOD SPECIMENOrdering Facility: [facility] Address: [address] [place] [address] Performed By: #### 5 8410-2 ####[facility] [id number] [place] [address] [place] WBC (Bld) [#/Vol] 10.74 10*3/uL Normal 3.70-11.00 [facility] Comment on above: Order Comment: Speci men Type: BLOOD SPECIMENOrdering Facility: [facility] Address: [address] [place] [address] Performed By: #### 5 8410-2 ####[facility] JOSIAS [id number] [facility] HOSPITALRuben [place] [address] [place] ECHO WITH AGITATED SALINE CO NTRASTon 07-13-2024 ECHO WITH AGITATED SALINE CONTRAST Echocardiography Report: Transthoracic Echo [facility] Bedside Date of service: 07/13/2024 3:54:27 PM [facility]SE [employer]UTTER Ordering physician: FELICIA LEVY Indication: Limited KYLE [...] * * * Final * * * [employer] [facility] Image : [id number] Normal [facility] NUTRITIONon 07-13-2024 NUTRITION HNO ID: [id number] Author: PAWAN PRESLEY DTR Service: Nutrition Therapy Author Type: Ergonomics Consultant Type: Nutrition Filed: 07/13/2024 11:50 Note Text: NUTRITION THERAPY RECEPTIONIST SECRETARY NOTE SERVICE DATE: 07/13/2024 SERVICE TIME: 1045 [...] July 13, 2024 TIME: 11:49 AM Normal [facility] OPERATIVE NOon 07-13-2024 OPERATIVE NO HNO ID: [id number] Author: SAVANA LOPEZ MD Service: Ophthalmology Author Type: Physician Type: Operative Report Filed: 07/13/2024 13:32 Note Text: [place] [address] [place] [facility] OPERATIVE REPORT LOG ID: [id number] Surgery/Procedure Date: 07/13/2024 Incision/Procedure Start Time: 12:43 PM Incision Close/Procedure End Time: 1:32 PM NAME: Mel Castillo [employer] #: [id number] SURGEON(S) AND BARREL SCRAPER(S): Surgeons and Role: * Savana Lopez MD [...] Vitreoretinal Surgery AND Ocular Inflammatory Diseases [facility] [place] Normal [facility] Renal function 2000 panelon 07-13-2024 Albumin [Mass/Vol] 3.5 g/dL Low 3.9-4.9 [facility] Comment on above: Order Comment: Speci men Type: BLOOD SPECIMENOrdering Facility: [facility] Address: [address] [place], [place] [address] Performed By: #### 2 4362-6 ####[facility] LABCL[facility] [id number] [place] [id number] [place] Anion gap [Moles/Vol] 10 mmol/L Normal 8-15 [facility] Comment on above: Order Comment: Speci men Type: BLOOD SPECIMENOrdering Facility: [facility] Address: [address] [place] [address] Performed By: #### 2 4362-6 ####[facility] [id number] [place] [address] [place] Calcium [Mass/Vol] 9.3 mg/dL Normal 8.5-10.2 [facility] Comment on above: Order Comment: Speci men Type: BLOOD SPECIMENOrdering Facility: [facility] Address: [address] [place], [place] [address] Performed By: #### 2 4362-6 ####[facility] LABCL[facility] [id number] [place] [address] [place] Chloride [Moles/Vol] 100 mmol/L Normal 98-107 [facility] Comment on above: Order Comment: Speci men Type: BLOOD SPECIMENOrdering Facility: [facility] Address: [address] [place], [place] [address] Performed By: #### 2 4362-6 ####[facility] [id number] [place] [address] [place] CO2 [Moles/Vol] 27 mmol/L Normal 22-30 [facility] Comment on above: Order Comment: Speci men Type: BLOOD SPECIMENOrdering Facility: [facility] Address: [address] [place], [place] [address] Performed By: #### 2 4362-6 ####[facility] LABIA [id number] [address] [address] [place] Creatinine [Mass/Vol] 0.92 mg/dL Normal 0.58-0.96 [facility] Comment on above: Order Comment: Rhina mason Type: BLOOD SPECIMENOrdering Facility: [facility] Address: [address] [place] [address] Performed By: #### 2 4362-6 ####[facility] LABIA [id number] [place] [address] [place] Creatinine and Glomerular filtration rate.predicted panel (S/P/Bld) 62 mL/min/1.73m??? Normal >=60 [facility] Comment on above: Order Comment: Rhina mason Type: BLOOD SPECIMENOrdering Facility: [facility] Address: [address] [place] [address] Result Comment: Isa mated Glomerular Filtration Rate [...] actual GFR. Performed By: #### 2 4362-6 ####[facility] LABIA [id number] [place] [address] [place] Glucose [Mass/Vol] 103 mg/dL High 74-99 [facility] Comment on above: Order Comment: Rhina mason Type: BLOOD SPECIMENOrdering Facility: [facility] Address: [address] [place] [address] Result Comment: The [employer] Diabetes Association (ADA) provides guidance for cutoff [...] Standards of Medical Care in Diabetes 2016, [employer] Diabetes Association. Diabetes Care. 2016.39(Suppl 1). Performed By: #### 2 4362-6 ####[facility] [id number] [place] [address] [place] Phosphate [Mass/Vol] 3.5 mg/dL Normal 2.7-4.8 [facility] Comment on above: Order Comment: Speci men Type: BLOOD SPECIMENOrdering Facility: [facility] Address: [address] [place] [address] Performed By: #### 2 4362-6 ####[facility] LABIA [id number] [place] [address] [place] Potassium [Moles/Vol] 4.2 mmol/L Normal 3.7-5.1 [facility] Comment on above: Order Comment: Speci men Type: BLOOD SPECIMENOrdering Facility: [facility] Address: [address] [place] [address] Performed By: #### 2 4362-6 ####[facility] [id number] [place] [address] [place] Sodium [Moles/Vol] 137 mmol/L Normal 136-144 [facility] Comment on above: Order Comment: Speci men Type: BLOOD SPECIMENOrdering Facility: [facility] Address: [address] [place] [address] Performed By: #### 2 4362-6 ####[facility] LABIA [id number] [place] [address] [place] Urea nitrogen [Mass/Vol] 12 mg/dL Normal 7-21 [facility] Comment on above: Order Comment: Speci men Type: BLOOD SPECIMENOrdering Facility: [facility] Address: [address] [place] [address] Performed By: #### 2 4362-6 ####[facility] [id number] [place] [address] [place] BSCAN OD (RIGHT EYE)on 07-12 [facility] Radiology Study observation (narrative) [facility] CBC panel Auto (Bld)on 07-12 Erythrocyte distribution width (RBC) [Ratio] 17.8 % High 11.5-15.0 [facility] Comment on above: Order Comment: Speci men Type: BLOOD SPECIMENOrdering Facility: [facility] Address: [address] [place] [address] Performed By: #### 5 8410-2 ####[facility] [id number] [place] [address] [place] Hematocrit (Bld) [Volume fraction] 34.7 % Low 36.0-46.0 [facility] Comment on above: Order Comment: Speci men Type: BLOOD SPECIMENOrdering Facility: [facility] Address: [address] [place] [address] Performed By: #### 5 8410-2 ####[facility] [id number] [place] [address] [place] Hemoglobin (Bld) [Mass/Vol] 10.6 g/dL Low 11.5-15.5 [facility] Comment on above: Order Comment: Speci men Type: BLOOD SPECIMENOrdering Facility: [facility] Address: [address] [place] [address] Performed By: #### 5 8410-2 ####[facility] LABIA [id number] [place] [address] [place] MCH (RBC) [Entitic mass] 26.4 pg Normal 26.0-34.0 [facility] Comment on above: Order Comment: Speci men Type: BLOOD SPECIMENOrdering Facility: [facility] Address: [address] [place] [address] Performed By: #### 5 8410-2 ####[facility]CL[facility] [id number] [place] [address] [place] MCHC (RBC) [Mass/Vol] 30.5 g/dL Normal 30.5-36.0 [facility] Comment on above: Order Comment: Speci men Type: BLOOD SPECIMENOrdering Facility: [facility] Address: [address] [place] [address] Performed By: #### 5 8410-2 ####[facility]CL[facility] [id number] [place] [address] [place] MCV (RBC) [Entitic vol] 86.3 fL Normal 80.0-100.0 [facility] Comment on above: Order Comment: Speci men Type: BLOOD SPECIMENOrdering Facility: [facility] Address: [address] [place] [address] Performed By: #### 5 8410-2 ####[facility] [id number] [place] [address] [place] Nucleated RBC (Bld) [#/Vol] 10*3/uL Normal <0.01 [facility] Comment on above: Order Comment: Speci men Type: BLOOD SPECIMENOrdering Facility: [facility] Address: [address] [place] [address] Performed By: #### 5 8410-2 ####[facility] LABCL[facility] [id number] [place] [address] [place] Platelet mean volume (Bld) [Entitic vol] 9.9 fL Normal 9.0-12.7 [facility] Comment on above: Order Comment: Speci men Type: BLOOD SPECIMENOrdering Facility: [facility] Address: [address] [place] [address] Performed By: #### 5 8410-2 ####[facility] LABCL[facility] [id number] [place] [address] [place] Platelets (Bld) [#/Vol] 301 10*3/uL Normal 150-400 [facility] Comment on above: Order Comment: Speci men Type: BLOOD SPECIMENOrdering Facility: [facility] Address: [address] [place] [address] Performed By: #### 5 8410-2 ####[facility] LABIA [id number] [place] [address] [place] RBC (Bld) [#/Vol] 4.02 10*6/uL Normal 3.90-5.20 [facility] Comment on above: Order Comment: Speci men Type: BLOOD SPECIMENOrdering Facility: [facility] Address: [address] [place] [address] Performed By: #### 5 8410-2 ####[facility] [id number] [place] [address] [place] WBC (Bld) [#/Vol] 10.07 10*3/uL Normal 3.70-11.00 [facility] Comment on above: Order Comment: Speci men Type: BLOOD SPECIMENOrdering Facility: [facility] Address: [address] [place] [address] Performed By: #### 5 8410-2 ####[facility] [id number] [place] [address] [place] PT EDon 07-12-2024 PT ED HNO ID: [id number] Author: GISSELL POPE RPh Service: Pharmacy Author [...] consult pharmacy for inpatient anticoagulant education. Gissell Pope, [facility] Normal [facility] Renal function 2000 panelon 07-12-2024 Albumin [Mass/Vol] 3.4 g/dL Low 3.9-4.9 [facility] Comment on above: Order Comment: Speci men Type: BLOOD SPECIMENOrdering Facility: [facility] Address: [address] [place] [address] Performed By: #### 2 4362-6 ####[facility]IA [id number] [place] [address] [place] Anion gap [Moles/Vol] 14 mmol/L Normal 8-15 [facility] Comment on above: Order Comment: Speci men Type: BLOOD SPECIMENOrdering Facility: [facility] Address: [address] [place] [address] Performed By: #### 2 4362-6 ####[facility] [id number] [place] [address] [place] Calcium [Mass/Vol] 9.3 mg/dL Normal 8.5-10.2 [facility] Comment on above: Order Comment: Speci men Type: BLOOD SPECIMENOrdering Facility: [facility] Address: [address] [place] [address] Performed By: #### 2 4362-6 ####[facility] [id number] [place] [address] [place] Chloride [Moles/Vol] 101 mmol/L Normal 98-107 [facility] Comment on above: Order Comment: Speci men Type: BLOOD SPECIMENOrdering Facility: [facility] Address: [address] [place] [address] Performed By: #### 2 4362-6 ####[facility] [id number] [place] [address] [place] CO2 [Moles/Vol] 21 mmol/L Low 22-30 [facility] Comment on above: Order Comment: Speci men Type: BLOOD SPECIMENOrdering Facility: [facility] Address: [address] [place] [address] Performed By: #### 2 4362-6 ####[facility] [id number] [place] [address] [place] Creatinine [Mass/Vol] 0.81 mg/dL Normal 0.58-0.96 [facility] Comment on above: Order Comment: Speci men Type: BLOOD SPECIMENOrdering Facility: [facility] Address: [address] [place] [address] Performed By: #### 2 4362-6 ####[facility] [id number] [place] [address] [place] Creatinine and Glomerular filtration rate.predicted panel (S/P/Bld) 72 mL/min/1.73m??? Normal >=60 [facility] Comment on above: Order Comment: Speci men Type: BLOOD SPECIMENOrdering Facility: [facility] Address: [address] [place] [address] Result Comment: Isa mated Glomerular Filtration Rate [...] actual GFR. Performed By: #### 2 4362-6 ####[facility] [id number] [place] [address] [place] Glucose [Mass/Vol] 100 mg/dL High 74-99 [facility] Comment on above: Order Comment: Speci men Type: BLOOD SPECIMENOrdering Facility: [facility] Address: [address] [place] [address] Result Comment: The [place] Diabetes Association (ADA) provides guidance for cutoff [...] Standards of Medical Care in Diabetes 2016, [place] Diabetes [employer]. Diabetes Care. 2016.39(Suppl 1). Performed By: #### 2 4362-6 ####[facility] [id number] [place] [address] [place] Phosphate [Mass/Vol] 2.7 mg/dL Normal 2.7-4.8 [facility] Comment on above: Order Comment: Rhina mason Type: BLOOD SPECIMENOrdering Facility: [facility] Address: [address] [place] [address] Performed By: #### 2 4362-6 ####[facility] [id number] [place] [address] [place] Potassium [Moles/Vol] 4.0 mmol/L Normal 3.7-5.1 [facility] Comment on above: Order Comment: Samiri men Type: BLOOD SPECIMENOrdering Facility: [facility] Address: [address] [place], [place] [address] Performed By: #### 2 4362-6 ####[facility] [id number] [place] [address] [place] Sodium [Moles/Vol] 136 mmol/L Normal 136-144 [facility] Comment on above: Order Comment: Speci men Type: BLOOD SPECIMENOrdering Facility: [facility] Address: [address] [place] [address] Performed By: #### 2 4362-6 ####[facility] [id number] [place] [address] [place] Urea nitrogen [Mass/Vol] 12 mg/dL Normal 7-21 [facility] Comment on above: Order Comment: Speci men Type: BLOOD SPECIMENOrdering Facility: [facility] Address: [address] [place] [address] Performed By: #### 2 4362-6 ####[facility] [id number] [place] [address] [place] Right eye Photo documentatio non 07-12-2024 [facility] Radiology Study observation (narrative) [facility] THERAPY NTon 07-12-2024 THERAPY NT HNO ID: [id number] Author: RYANN GUZMÁN OT/[place] Service: Occupational Therapy Author Type: Occupational Therapist Type: Therapy (PT/OT/Speech/Resp) Filed: 07/12/2024 12:26 Note Text: OCCUPATIONAL THERAPY MISSED VISIT SERVICE DATE: 07/12/2024 SERVICE TIME: 1226 ROOM: [place] [address] ([facility] OPHTHALMOLOGY) Patient not seen due to Test / Procedure. SIGNATURE: JUANY Willett PATIENT NAME: Mel Castillo DATE: July 12, 2024 TIME: 12:26 PM Normal [facility] CBC panel Auto (Bld)on 07-11 Erythrocyte distribution width (RBC) [Ratio] 17.6 % High 11.5-15.0 [facility] Comment on above: Order Comment: Speci men Type: BLOOD SPECIMEN [facility]ing [facility] Address: [address] [place] [address] Performed By: #### 5 8410-2 #### [facility] CLIA [id number] [address] [place] [address] [place] Hematocrit (Bld) [Volume fraction] 32.3 % Low 36.0-46.0 [facility] Comment on above: Order Comment: Speci men Type: BLOOD SPECIMEN [facility]ing [facility]: [facility] Address: [address] [place] [address] Performed By: #### 5 8410-2 #### [facility] CLIA [id number] [address] [place] [address] [place] Hemoglobin (Bld) [Mass/Vol] 10.5 g/dL Low 11.5-15.5 [facility] Comment on above: Order Comment: Speci men Type: BLOOD SPECIMEN [facility]ing [facility]: [facility] Address: [address] [place] [address] Performed By: #### 5 8410-2 #### [facility] CLIA [id number] [address] [place] [address] [place] MCH (RBC) [Entitic mass] 27.0 pg Normal 26.0-34.0 [facility] Comment on above: Order Comment: Speci men Type: BLOOD SPECIMEN [facility]ing [facility] Address: [address] [place] [address] Performed By: #### 5 8410-2 #### [facility] CLIA [id number] [address] [place] [address] [place] MCHC (RBC) [Mass/Vol] 32.5 g/dL Normal 30.5-36.0 [facility] Comment on above: Order Comment: Speci men Type: BLOOD SPECIMEN Ordering Facility: [facility] Address: [address] [place] [address] Performed By: #### 5 8410-2 #### [facility] CLIA [id number] [address] [place] [address] [place] MCV (RBC) [Entitic vol] 83.0 fL Normal 80.0-100.0 [facility] Comment on above: Order Comment: Speci men Type: BLOOD SPECIMEN Ordering Facility: [facility] Address: [address] [place] [address] Performed By: #### 5 8410-2 #### [facility] CLIA [id number] [address] [place] [address] [place] Nucleated RBC (Bld) [#/Vol] 10*3/uL Normal <0.01 [facility] Comment on above: Order Comment: Speci men Type: BLOOD SPECIMEN Ordering Facility: [facility] Address: [address] [place] [address] Performed By: #### 5 8410-2 #### [facility] CLIA [id number] [address] [place] [address] [place] Platelet mean volume (Bld) [Entitic vol] 9.9 fL Normal 9.0-12.7 [facility] Comment on above: Order Comment: Speci men Type: BLOOD SPECIMEN Ordering Facility: [facility] Address: [address] [place] [address] Performed By: #### 5 8410-2 #### [facility] CLIA [id number] [address] [place] [address] [place] Platelets (Bld) [#/Vol] 289 10*3/uL Normal 150-400 [facility] Comment on above: Order Comment: Speci men Type: BLOOD SPECIMEN Ordering Facility: [facility] Address: [address] [place] [address] Performed By: #### 5 8410-2 #### [facility] CLIA [id number] [address] [place] [address] [place] RBC (Bld) [#/Vol] 3.89 10*6/uL Low 3.90-5.20 [facility] Comment on above: Order Comment: Speci men Type: BLOOD SPECIMEN Ordering Facility: [facility] Address: [address] [place] [address] Performed By: #### 5 8410-2 #### [facility] CLIA [id number] [address] [place] [address] [place] WBC (Bld) [#/Vol] 8.32 10*3/uL Normal 3.70-11.00 [facility] Comment on above: Order Comment: Speci men Type: BLOOD SPECIMEN Ordering Facility: [facility] Address: [address] [place] [address] Performed By: #### 5 8410-2 #### [facility] CLIA [id number] [address] [place] [address] [place] Renal function 2000 panelon 07-11-2024 Albumin [Mass/Vol] 3.4 g/dL Low 3.9-4.9 [facility] Comment on above: Order Comment: Speci men Type: BLOOD SPECIMENOrdering Facility: [facility] Address: [address] [place] [address] Performed By: #### 2 4362-6 ####[facility] [id number] [place] [address] [place] Anion gap [Moles/Vol] 11 mmol/L Normal 8-15 [facility] Comment on above: Order Comment: Speci men Type: BLOOD SPECIMENOrdering Facility: [facility] Address: [address] [place] [address] Performed By: #### 2 4362-6 ####[facility] [id number] [place] [address] [place] Calcium [Mass/Vol] 8.9 mg/dL Normal 8.5-10.2 [facility] Comment on above: Order Comment: Speci men Type: BLOOD SPECIMENOrdering Facility: [facility] Address: [address] [place] [address] Performed By: #### 2 4362-6 ####[facility] [id number] [place] [address] [place] Chloride [Moles/Vol] 103 mmol/L Normal 98-107 [facility] Comment on above: Order Comment: Speci men Type: BLOOD SPECIMENOrdering Facility: [facility] Address: [address] [place] [address] Performed By: #### 2 4362-6 ####[facility] [id number] [place] [address] [place] CO2 [Moles/Vol] 23 mmol/L Normal 22-30 [facility] Comment on above: Order Comment: Speci men Type: BLOOD SPECIMENOrdering Facility: [facility] Address: [address] [place] [address] Performed By: #### 2 4362-6 ####[facility] [id number] [address] STATES OF [facility] Creatinine [Mass/Vol] 0.91 mg/dL Normal 0.58-0.96 [facility] Comment on above: Order Comment: Speci men Type: BLOOD SPECIMENOrdering Facility: [facility] Address: [address] [place] [address] Performed By: #### 2 4362-6 ####[facility] [id number] [address] Creatinine and Glomerular filtration rate.predicted panel (S/P/Bld) 62 mL/min/1.73m??? Normal >=60 [facility] Comment on above: Order Comment: Speci men Type: BLOOD SPECIMENOrdering Facility: [facility] Address: [address] [place] [address] Result Comment: Isa mated Glomerular Filtration Rate [...] actual GFR. Performed By: #### 2 4362-6 ####[facility] [id number] [address] [address] [place] Glucose [Mass/Vol] 98 mg/dL Normal 74-99 [facility] Comment on above: Order Comment: Speci men Type: BLOOD SPECIMENOrdering Facility: [facility] Address: [address] [place] [address] Result Comment: The [place] Diabetes Association (ADA) provides guidance for cutoff [...] Standards of Medical Care in Diabetes 2016, [employer]. Diabetes Care. 2016.39(Suppl 1). Performed By: #### 2 4362-6 ####[facility] [id number] [place] [address] [place] Phosphate [Mass/Vol] 2.8 mg/dL Normal 2.7-4.8 [facility] Comment on above: Order Comment: Speci men Type: BLOOD SPECIMENOrdering Facility: [facility] Address: [address] [place], [place] [address] Performed By: #### 2 4362-6 ####[facility] [id number] [place] [id number] [place] Potassium [Moles/Vol] 3.6 mmol/L Low 3.7-5.1 [facility] Comment on above: Order Comment: Speci men Type: BLOOD SPECIMENOrdering Facility: [facility] Address: [address] [place], [place] [address] Performed By: #### 2 4362-6 ####[facility] [id number] [address] [place] Sodium [Moles/Vol] 137 mmol/L Normal 136-144 [facility] Comment on above: Order Comment: Speci men Type: BLOOD SPECIMENOrdering Facility: [facility] Address: [address] [place] [address] Performed By: #### 2 4362-6 ####[facility] [id number] [address] [place] Urea nitrogen [Mass/Vol] 15 mg/dL Normal 7-21 [facility] Comment on above: Order Comment: Speci men Type: BLOOD SPECIMENOrdering Facility: [facility] Address: [address] [place] [address] Performed By: #### 2 4362-6 ####[facility] [id number] [address] [place] CASE MANAGEMon 07-10-2024 CASE MANAGEM HNO ID: [id number] Author: MYA HUGHES LSW Service: Social Work Author Type: General Foreman Type: Care Mgt Progress Note Filed: 07/10/2024 14:42 Note Text: CARE MANAGEMENT PROGRESS NOTE SERVICE DATE: 07/10/2024 SERVICE TIME: 2:38 PM LOS: 3 days Post-Acute Discharge Planning Patient Goal(s): Increase strength [place] Choice Explained: [place] Choice Given: Yes Post-Acute Discharge Plan: OT skilled for SNF, patient in need of / assistance d/t visual limitations. Awaiting PT note. FOC sent to daughter in law, she will discuss with patient tomorrow. Will need precert, transport, 7000. CM will continue to follow and update transitional plan as needed and appropriate through discharge. SIGNATURE: SHAQUILLE Avila PATIENT NAME: Mel Castillo DATE: July 10, 2024 TIME: 2:38 PM Normal [facility] CBC panel Auto (Bld)on 07-10 Erythrocyte distribution width (RBC) [Ratio] 17.5 % High 11.5-15.0 [facility] Comment on above: Order Comment: Speci men Type: BLOOD SPECIMEN Ordering Facility: [facility] Address: [address] [place] [address] Performed By: #### 2 276-4 #### [facility] CLIA [id number] [address] [place] [address] [place] Hematocrit (Bld) [Volume fraction] 31.7 % Low 36.0-46.0 [facility] Comment on above: Order Comment: Speci men Type: BLOOD SPECIMEN Ordering Facility: [facility] Address: [address] [place] [address] Performed By: #### 2 276-4 #### [facility] CLIA [id number] [address] [place] [address] [place] Hemoglobin (Bld) [Mass/Vol] 9.9 g/dL Low 11.5-15.5 [facility] Comment on above: Order Comment: Speci men Type: BLOOD SPECIMEN Ordering Facility: [facility] Address: [address] [place] [address] Performed By: #### 2 276-4 #### [facility] CLIA [id number] [address] [place] [address] [place] MCH (RBC) [Entitic mass] 26.0 pg Normal 26.0-34.0 [facility] Comment on above: Order Comment: Speci men Type: BLOOD SPECIMEN Ordering Facility: [facility] Address: [address] [place] [address] Performed By: #### 2 276-4 #### [facility] CLIA [id number] [address] [place] [address] [place] MCHC (RBC) [Mass/Vol] 31.2 g/dL Normal 30.5-36.0 [facility] Comment on above: Order Comment: Speci men Type: BLOOD SPECIMEN Ordering Facility: [facility] Address: [address] [place] [address] Performed By: #### 2 276-4 #### [facility] CLIA [id number] [address] [place] [address] [place] MCV (RBC) [Entitic vol] 83.2 fL Normal 80.0-100.0 [facility] Comment on above: Order Comment: Speci men Type: BLOOD SPECIMEN Ordering Facility: [facility] Address: [address] [place] [address] Performed By: #### 2 276-4 #### [facility] CLIA [id number] [address] [place] [address] [place] Nucleated RBC (Bld) [#/Vol] 10*3/uL Normal <0.01 [facility] Comment on above: Order Comment: Speci men Type: BLOOD SPECIMEN Ordering Facility: [facility] Address: [address] [place] [address] Performed By: #### 2 276-4 #### [facility] CLIA [id number] [address] [place] [address] [place] Platelet mean volume (Bld) [Entitic vol] 10.3 fL Normal 9.0-12.7 [facility] Comment on above: Order Comment: Speci men Type: BLOOD SPECIMEN Ordering Facility: [facility] Address: [address] [place] [address] Performed By: #### 2 276-4 #### [facility] CLIA [id number] [address] [place] [address] [place] Platelets (Bld) [#/Vol] 336 10*3/uL Normal 150-400 [facility] Comment on above: Order Comment: Speci men Type: BLOOD SPECIMEN Ordering Facility: [facility] Address: [address] [place] [address] Performed By: #### 2 276-4 #### [facility] CLIA [id number] [address] [place] [address] [place] RBC (Bld) [#/Vol] 3.81 10*6/uL Low 3.90-5.20 [facility] Comment on above: Order Comment: Speci men Type: BLOOD SPECIMEN Ordering Facility: [facility] Address: [address] [place] [address] Performed By: #### 2 276-4 #### [facility] CLIA [id number] [address] [place] [address] [place] WBC (Bld) [#/Vol] 6.35 10*3/uL Normal 3.70-11.00 [facility] Comment on above: Order Comment: Speci men Type: BLOOD SPECIMEN Ordering Facility: [facility] Address: [address] [place] [address] Performed By: #### 2 276-4 #### [facility] CLIA [id number] [address] [place] [address] [place] Renal function 2000 panelon 07-10-2024 Albumin [Mass/Vol] 3.5 g/dL Low 3.9-4.9 [facility] Comment on above: Order Comment: Speci men Type: BLOOD SPECIMEN Ordering Facility: [facility] Address: [address] [place] [address] Performed By: #### 2 4362-6 #### [facility] CLIA [id number] [address] [place] [address] [place] Anion gap [Moles/Vol] 12 mmol/L Normal 8-15 [facility] Comment on above: Order Comment: Speci men Type: BLOOD SPECIMEN Ordering Facility: [facility] Address: [address] [place] [address] Performed By: #### 2 4362-6 #### [facility] CLIA [id number] [address] [place] [address] [place] Calcium [Mass/Vol] 9.0 mg/dL Normal 8.5-10.2 [facility] Comment on above: Order Comment: Speci men Type: BLOOD SPECIMEN Ordering Facility: [facility] Address: [address] [place] [address] Performed By: #### 2 4362-6 #### [facility] CLIA [id number] [address] [place] [address] [place] Chloride [Moles/Vol] 104 mmol/L Normal 98-107 [facility] Comment on above: Order Comment: Speci men Type: BLOOD SPECIMEN Ordering Facility: [facility] Address: [address] [place] [address] Performed By: #### 2 4362-6 #### [facility] CLIA [id number] [address] [place] [address] [place] CO2 [Moles/Vol] 22 mmol/L Normal 22-30 [facility] Comment on above: Order Comment: Speci men Type: BLOOD SPECIMEN Ordering Facility: [facility] Address: [address] [place] [address] Performed By: #### 2 4362-6 #### [facility] CLIA [id number] [address] [place] [address] [place] Creatinine [Mass/Vol] 0.93 mg/dL Normal 0.58-0.96 [facility] Comment on above: Order Comment: Speci men Type: BLOOD SPECIMEN Ordering Facility: [facility] Address: [address] [place] [address] Performed By: #### 2 4362-6 #### [facility] CLIA [id number] [address] [place] [address] [place] Creatinine and Glomerular filtration rate.predicted panel (S/P/Bld) 61 mL/min/1.73m??? Normal >=60 [facility] Comment on above: Order Comment: Speci men Type: BLOOD SPECIMEN Ordering Facility: [facility] Address: [address] [place] [address] Result Comment: Isa mated Glomerular Filtration Rate [...] GFR. Performed By: #### 2 4362-6 #### [facility] CLIA [id number] [address] [place] [address] [place] Glucose [Mass/Vol] 102 mg/dL High 74-99 [facility] Comment on above: Order Comment: Rhina mason Type: BLOOD SPECIMEN Ordering Facility: [facility] Address: [address] [place] [address] Result Comment: The [place] Diabetes Association (ADA) provides guidance for cutoff [...] Standards of Medical Care in Diabetes 2016, [place] Diabetes [employer]. Diabetes Care. 2016.39(Suppl 1). Performed By: #### 2 4362-6 #### [facility] CLIA [id number] [address] [place] [address] [place] Phosphate [Mass/Vol] 2.6 mg/dL Low 2.7-4.8 [facility] Comment on above: Order Comment: Rhina msaon Type: BLOOD SPECIMEN Ordering Facility: [facility] Address: [address] [place] [address] Performed By: #### 2 4362-6 #### [facility] IA [id number] [address] [place] [address] [place] Potassium [Moles/Vol] 3.9 mmol/L Normal 3.7-5.1 [facility] Comment on above: Order Comment: Rhina mason Type: BLOOD SPECIMEN Ordering Facility: [facility] Address: [address] [place] [address] Performed By: #### 2 4362-6 #### [facility] CLIA [id number] [address] [place] [address] [place] Sodium [Moles/Vol] 138 mmol/L Normal 136-144 [facility] Comment on above: Order Comment: Speci men Type: BLOOD SPECIMEN Ordering Facility: [facility] Address: [address] [place] [address] Performed By: #### 2 4362-6 #### [facility] CLIA [id number] [address] [place] [address] [place] Urea nitrogen [Mass/Vol] 21 mg/dL Normal 7-21 [facility] Comment on above: Order Comment: Speci men Type: BLOOD SPECIMEN Ordering Facility: [facility] Address: [address] [place] [address] Performed By: #### 2 4362-6 #### [facility] CLIA [id number] [address] [place] [address] [place] THERAPY NTon 07-10-2024 THERAPY NT HNO ID: [id number] Author: SANTIAOG GUZMAN OT/L Service: Occupational Therapy Author Type: Occupational Therapist Type: Therapy (PT/OT/Speech/Resp) Filed: 07/10/2024 10:00 Note Text: Occupational Therapy Evaluation Summary SERVICE DATE: 07/10/2024 SERVICE TIME: 839 to 919 ROOM: [place] [address] OT 6 Clicks Score: 15 DISCHARGE RECOMMENDATIONS [...] "shadows" and occasionally the color while / speech therapy director colors. SNF rec at this time pending pt visual improvement, AND overall medical course. If pt were to d/c home she would require / assist d/t visual limitations. SNF rec at [...] Muscle Weakness (generalized) TREATMENT INTERVENTIONS Evaluation, Self Halfway Management (00117) Timed Code Treatment (minutes): 25 Skilled Treatment [...] Sit to Stand, Standing Balance to Improve [place] with ADLs/Self-Care, Sitting Balance to Improve [place] with ADLs/Self-Care, Life Roles/Routines/Habits THERAPEUTIC SKILLS USED Therapeutic Use of Self, Physical Assist, Movement Facilitation, Management of Critical Lines, Tubes and/or Drains FUNCTIONAL STATUS Activities of Daily Living Assist Level Additional Information Feeding Minimal Assistance Grooming Moderate Assistance Bathing Upper Body Minimal Assistance Bathing Lower Body Ma (more content not included)... Normal [facility] CBC panel Auto (Bld)on 07-09 Erythrocyte distribution width (RBC) [Ratio] 17.7 % High 11.5-15.0 [facility] Comment on above: Order Comment: Speci men Type: BLOOD SPECIMEN Ordering Facility: [facility] Address: [address] [place] [address] Performed By: #### 2 4362-6 #### [facility] CLIA [id number] [address] [place], [place] [address] [address] [address] [place] Hematocrit (Bld) [Volume fraction] 33.9 % Low 36.0-46.0 [facility] Comment on above: Order Comment: Speci men Type: BLOOD SPECIMEN Ordering Facility: [facility] Address: [address] [place] [address] Performed By: #### 2 4362-6 #### [facility] CLIA [id number] [address] [place] [address] [place] Hemoglobin (Bld) [Mass/Vol] 10.5 g/dL Low 11.5-15.5 [facility] Comment on above: Order Comment: Speci men Type: BLOOD SPECIMEN Ordering Facility: [facility] Address: [address] [place] [address] Performed By: #### 2 4362-6 #### [facility] CLIA [id number] [address] [place] [address] [place] MCH (RBC) [Entitic mass] 26.6 pg Normal 26.0-34.0 [facility] Comment on above: Order Comment: Speci men Type: BLOOD SPECIMEN Ordering Facility: [facility] Address: [address] [place] [address] Performed By: #### 2 4362-6 #### [facility] CLIA [id number] [address] [place] [address] [place] MCHC (RBC) [Mass/Vol] 31.0 g/dL Normal 30.5-36.0 [facility] Comment on above: Order Comment: Speci men Type: BLOOD SPECIMEN Ordering Facility: [facility] Address: [address] [place] [address] Performed By: #### 2 4362-6 #### [facility] CLIA [id number] [address] [place] [address] [place] MCV (RBC) [Entitic vol] 86.0 fL Normal 80.0-100.0 [facility] Comment on above: Order Comment: Speci men Type: BLOOD SPECIMEN Ordering Facility: [facility] Address: [address] [place] [address] Performed By: #### 2 4362-6 #### [facility] CLIA [id number] [address] [place] [address] [place] Nucleated RBC (Bld) [#/Vol] 10*3/uL Normal <0.01 [facility] Comment on above: Order Comment: Speci men Type: BLOOD SPECIMEN Ordering Facility: [facility] Address: [address] [place] [address] Performed By: #### 2 4362-6 #### [facility] CLIA [id number] [address] [place] [address] [place] Platelet mean volume (Bld) [Entitic vol] 10.4 fL Normal 9.0-12.7 [facility] Comment on above: Order Comment: Speci men Type: BLOOD SPECIMEN Ordering Facility: [facility] Address: [address] [place] [address] Performed By: #### 2 4362-6 #### [facility] CLIA [id number] [address] [place] [address] [place] Platelets (Bld) [#/Vol] 346 10*3/uL Normal 150-400 [facility] Comment on above: Order Comment: Speci men Type: BLOOD SPECIMEN Ordering Facility: [facility] Address: [address] [place] [address] Performed By: #### 2 4362-6 #### [facility] CLIA [id number] [address] [place] [address] [place] RBC (Bld) [#/Vol] 3.94 10*6/uL Normal 3.90-5.20 [facility] Comment on above: Order Comment: Speci men Type: BLOOD SPECIMEN Ordering Facility: [facility] Address: [address] [place] [address] Performed By: #### 2 4362-6 #### [facility] CLIA [id number] [address] [place] [address] [place] WBC (Bld) [#/Vol] 8.22 10*3/uL Normal 3.70-11.00 [facility] Comment on above: Order Comment: Speci men Type: BLOOD SPECIMEN Ordering Facility: [facility] Address: [address] [place] [address] Performed By: #### 2 4362-6 #### [facility] CLIA [id number] [address] [place] [address] [place] Renal function 2000 panelon 07-09-2024 Albumin [Mass/Vol] 3.6 g/dL Low 3.9-4.9 [facility] Comment on above: Order Comment: Speci men Type: BLOOD SPECIMEN Ordering Facility: [facility] Address: [address] [place] [address] Performed By: #### 2 4362-6 #### [facility] CLIA [id number] [address] [place] [address] [place] Anion gap [Moles/Vol] 11 mmol/L Normal 8-15 [facility] Comment on above: Order Comment: Speci men Type: BLOOD SPECIMEN Ordering Facility: [facility] Address: [address] [place] [address] Performed By: #### 2 4362-6 #### [facility] CLIA [id number] [address] [place] [address] [place] Calcium [Mass/Vol] 8.8 mg/dL Normal 8.5-10.2 [facility] Comment on above: Order Comment: Speci men Type: BLOOD SPECIMEN Ordering Facility: [facility] Address: [address] [place] [address] Performed By: #### 2 4362-6 #### [facility] CLIA [id number] [address] [place] [address] [place] Chloride [Moles/Vol] 103 mmol/L Normal 98-107 [facility] Comment on above: Order Comment: Speci men Type: BLOOD SPECIMEN Ordering Facility: [facility] Address: [address] [place] [address] Performed By: #### 2 4362-6 #### [facility] CLIA [id number] [address] [place] [address] [place] CO2 [Moles/Vol] 22 mmol/L Normal 22-30 [facility] Comment on above: Order Comment: Rhina mason Type: BLOOD SPECIMEN Ordering Facility: [facility] Address: [address] [place] [address] Performed By: #### 2 4362-6 #### [facility] CLIA [id number] [address] [place] [address] [place] Creatinine [Mass/Vol] 0.94 mg/dL Normal 0.58-0.96 [facility] Comment on above: Order Comment: Samiri men Type: BLOOD SPECIMEN Ordering Facility: [facility] Address: [address] [place] [address] Performed By: #### 2 4362-6 #### [facility] CLIA [id number] [address] [place] [address] [place] Creatinine and Glomerular filtration rate.predicted panel (S/P/Bld) 60 mL/min/1.73m??? Normal >=60 [facility] Comment on above: Order Comment: Rhina mason Type: BLOOD SPECIMEN Ordering Facility: [facility] Address: [address] [place] [address] Result Comment: Isa mated Glomerular Filtration Rate [...] GFR. Performed By: #### 2 4362-6 #### [facility] CLIA [id number] [address] [place] [address] [place] Glucose [Mass/Vol] 158 mg/dL High 74-99 [facility] Comment on above: Order Comment: Samiri isabella Type: BLOOD SPECIMEN Ordering Facility: [facility] Address: [address], [place] [address] Result Comment: The [place] Diabetes Association (ADA) provides guidance for cutoff [...] Standards of Medical Care in Diabetes 2016, [place] Diabetes Association. Diabetes Care. 2016.39(Suppl 1). Performed By: #### 2 4362-6 #### [facility] CLIA [id number] [address] [place] [address] [place] Phosphate [Mass/Vol] 2.0 mg/dL Low 2.7-4.8 [facility] Comment on above: Order Comment: Speci men Type: BLOOD SPECIMEN Ordering Facility: [facility] Address: [address] [place] [address] Performed By: #### 2 4362-6 #### [facility] CLIA [id number] [address] [place] [address] [place] Potassium [Moles/Vol] 4.1 mmol/L Normal 3.7-5.1 [facility] Comment on above: Order Comment: Speci men Type: BLOOD SPECIMEN Ordering Facility: [facility] Address: [address] [place] [address] Performed By: #### 2 4362-6 #### [facility] CLIA [id number] [address] [place] [address] [place] Sodium [Moles/Vol] 136 mmol/L Normal 136-144 [facility] Comment on above: Order Comment: Speci men Type: BLOOD SPECIMEN Ordering Facility: [facility] Address: [address] [place] [address] Performed By: #### 2 4362-6 #### [facility] CLIA [id number] [facility] [place] Urea nitrogen [Mass/Vol] 18 mg/dL Normal 7-21 [facility] Comment on above: Order Comment: Speci men Type: BLOOD SPECIMEN Ordering Facility: [facility] Address: [address] [place] [address] Performed By: #### 2 4362-6 #### [facility] CLIA [id number] [facility] [address] [place] CONSULTon 07-08-2024 CONSULT HNO ID: [id number] Author: JARED GILMORE MD Service: Ophthalmology Author [...] NLP vision Tatyana Johnson MD Ophthalmology Resident Mon-Fri, 7 am - 5 pm, page [phone] Mon-Tue, 5 pm - 7 am, page [phone] Weekends (Fri 5 pm to Mon 7 am), page [phone] EXAM: Base Eye Exam Visual Acuity Right Left Dist sc CF at 3' Tonometry (Applanation, 8:30 AM) Right Left Pressure 14 Pupils Dark Light Shape React Right 6 (more content not included)... Normal [facility] [id number] 07-07-2024 [id number] Normal [facility] BASIC METABOLIC PANELon 12- Anion gap [Moles/Vol] 4 mmol/L Normal 3-13 [facility] Comment on above: Performed By: #### L AB15 ####Health Information Specialist: VELMA VALADEZ ([phone])[facility] ([facility])[address] [place] [address] Calcium [Mass/Vol] 8.7 mg/dL Low 8.8-10.0 [facility] Comment on above: Performed By: #### L AB15 ####Health Information Specialist: VELMA VALADEZ ([phone])[facility] ([facility])[address] [place] [address] [place] Chloride [Moles/Vol] 111 mmol/L High 98-107 [facility] Comment on above: Performed By: #### L AB15 ####Health Information Specialist: VELMA VALADEZ ([phone])[facility] ([facility])[address] [place] [address] CO2 [Moles/Vol] 23 mmol/L Normal 23-31 [facility] Comment on above: Performed By: #### L AB15 ####Health Information Specialist: VELMA VALADEZ ([phone])[facility] ([facility])[address] [place] [address] Creatinine [Mass/Vol] 0.84 mg/dL Normal 0.57-1.11 [facility] Comment on above: Performed By: #### L AB15 ####Health Information Specialist: VELMA VALADEZ ([phone])[facility])[address] [place] [address] [place] GLOMERULAR FILTRATION RATE ML/MIN/1.73 SQ M.PREDICTED 68.6 mL/min/1.73m*2 Normal >60.0 [facility] Comment on above: Result Comment: Calc ulation based on the Chronic Kidney Disease Epidemiology Collaboration (CKD-EPI) equation refit without adjustment for race Performed By: #### L AB15 ####Health Information Specialist: VELMA VALADEZ ([phone])[facility] ([facility])[address] [place] [address] [place] Glucose [Mass/Vol] 102 mg/dL Normal 82-115 [facility] Comment on above: Performed By: #### L AB15 ####Health Information Specialist: VELMA VALADEZ ([phone])[facility] ([facility])[address] [place] [address] Potassium [Moles/Vol] 4.0 mmol/L Normal 3.5-5.1 [facility] Comment on above: Result Comment: [facility] potassium values may be up to 0.5 mmol/L lower than serum values. Performed By: #### L AB15 ####Health Information Specialist: VELMA VALADEZ ([phone])[facility] [place] [address] Sodium [Moles/Vol] 138 mmol/L Normal 136-145 [facility] Comment on above: Performed By: #### L AB15 ####Health Information Specialist: VELMA VALADEZ ([phone])[facility] [place] [address] Urea nitrogen [Mass/Vol] 19 mg/dL Normal 9-23 [facility] Comment on above: Performed By: #### L AB15 ####Health Information Specialist: VELMA VALADEZ ([phone])[facility] ([facility])[address] [place] [address] Basic metabolic 1998 panelon 07-07-2024 Anion gap [Moles/Vol] 4 mmol/L 3 - 13 mmol/L [facility] Calcium [Mass/Vol] 8.7 mg/dL Low 8.8 - 10. 0 mg/dL [facility] Chloride [Moles/Vol] 111 mmol/L High 98 - 10 7 mmol/L [facility] CO2 [Moles/Vol] 23 mmol/L 23 - 31 mmol/L [facility] Creatinine [Mass/Vol] 0.84 mg/dL 0.57 - 1.11 mg/dL [facility] GFR/1.73 sq M.predicted (S/P/Bld) [Vol rate/Area] 68.6 mL/min - PINF [facility] Comment on above: Calculation based on the Chronic Kidney Disease Epidemiology Collaboration (CKD-EPI) equation refit without adjustment for race Glucose [Mass/Vol] 102 mg/dL 82 - 115 mg/dL [facility] Interpretation and review of laboratory results Abnormal [facility] Potassium [Moles/Vol] 4 mmol/L 3.5 - 5.1 mmol/L [facility] Comment on above: Plasma potassium chris ues may be up to 0.5 mmol/L lower than serum values. Sodium [Moles/Vol] 138 mmol/L 136 - 145 mmol/L [facility] Urea nitrogen [Mass/Vol] 19 mg/dL 9 - 23 mg/dL [facility] CBC W Auto Differential pane l (Bld)Ordered By: Devika Eisenberg on 07-07-2024 Basophils (Bld) [#/Vol] 0 10*3/uL 0.0 - 0.2 10*3/uL [facility] Basophils/100 WBC (Bld) 0.4 % 0.0 - 2.0 % [facility] Eosinophils (Bld) [#/Vol] 0.1 10*3/uL 0.0 - 0.5 10*3/uL [facility] Eosinophils/100 WBC (Bld) 1.3 % 0.0 - 6.0 % [facility] Erythrocyte distribution width (RBC) [Ratio] 17.6 % High 11.5 - 15.0 % [facility] Hematocrit (Bld) [Volume fraction] 29.9 % Low 35.0 - 47.0 % [facility] Hemoglobin (Bld) [Mass/Vol] 9.1 g/dL Low 11.7 - 16.0 g/dL [facility] Immature granulocytes (Bld) [#/Vol] 0 10*3/uL NINF - 0.1 10*3/uL [facility] Immature granulocytes/100 WBC (Bld) 0.2 % 0.0 - 2.0 % [facility] Interpretation and review of laboratory results Abnormal [facility] Lymphocytes (Bld) [#/Vol] 1.2 10*3/uL 1.0 - 4.3 10*3/uL [facility] Lymphocytes/100 WBC (Bld) 22 % 15.0 - 45.0 % [facility] MCH (RBC) [Entitic mass] 25.9 pg Low 26.0 - 34.0 pg [facility] MCHC (RBC) [Mass/Vol] 30.4 % Low 30.5 - 36.0 % [facility] MCV (RBC) [Entitic vol] 84.9 fL 77.0 - 99.0 fL [facility] Monocytes (Bld) [#/Vol] 0.6 10*3/uL 0.0 - 0.9 10*3/uL [facility] Monocytes/100 WBC (Bld) 10 % 5.0 - 13.0 % [facility] Neutrophils (Bld) [#/Vol] 3.7 10*3/uL 1.8 - 7.5 10*3/uL [facility] Neutrophils/100 WBC (Bld) 66.1 % 38.0 - 82.0 % [facility] Nucleated RBC/100 WBC (Bld) [Ratio] 0 % [facility] Platelet mean volume (Bld) [Entitic vol] 9.8 fL 9.0 - 12.7 fL [facility] Platelets (Bld) [#/Vol] 301 10*3/uL 140 - 440 10*3/uL [facility] RBC (Bld) [#/Vol] 3.52 10*6/uL Low 3.80 - 5.2 0 10*6/uL [facility] WBC (Bld) [#/Vol] 5.6 10*3/uL 3.6 - 10.7 10*3/uL [facility] CBC WITH AUTO DIFFERENTIALon 07-07-2024 Basophils (Bld) [#/Vol] 0.0 10*3/uL Normal 0.0-0.2 [facility] Comment on above: Performed By: #### L [id number] ####Health Information Specialist: VELMA [phone])[facility] ([facility])[address] [place] [address] Basophils/100 WBC (Bld) 0.4 % Normal 0.0-2.0 [facility] Comment on above: Performed By: #### L [id number] ####Health Information Specialist: VELMA VALADEZ ([phone])[facility] ([facility])[address] [place] [address] [place] Eosinophils (Bld) [#/Vol] 0.1 10*3/uL Normal 0.0-0.5 [facility] Comment on above: Performed By: #### L [id number] ####Health Information Specialist: VEMLA VALADEZ ([phone])[facility] ([facility])[address] [place] [address] [place] Eosinophils/100 WBC (Bld) 1.3 % Normal 0.0-6.0 [facility] Comment on above: Performed By: #### L [id number] ####Health Information Specialist: VELMA VALADEZ ([phone])[facility])[address] [place] [address] Erythrocyte distribution width (RBC) [Ratio] 17.6 % High 11.5-15.0 [facility] Comment on above: Performed By: #### L [id number] ####Health Information Specialist: VELMA VALADEZ ([phone])[facility])[address] [place] [address] Hematocrit (Bld) [Volume fraction] 29.9 % Low 35.0-47.0 [facility] Comment on above: Performed By: #### L [id number] ####Health Information Specialist: VELMA VALADEZ ([phone])[address] Hemoglobin (Bld) [Mass/Vol] 9.1 g/dL Low 11.7-16.0 [facility] Comment on above: Performed By: #### L [id number] ####Health Information Specialist: VELMA VALADEZ ([phone])[address] IMMATURE GRANS % 0.2 % Normal 0.0-2.0 [facility] Comment on above: Performed By: #### L [id number] ####Health Information Specialist: VELMA VALADEZ ([phone])[address] IMMATURE GRANS ABSOLUTE 0.0 10*3/uL Normal <0.1 [facility] Comment on above: Performed By: #### L [id number] ####Health Information Specialist: VELMA VALADEZ ([phone])[facility])[address] [place] [address] Lymphocytes (Bld) [#/Vol] 1.2 10*3/uL Normal 1.0-4.3 [facility] Comment on above: Performed By: #### L [id number] ####Health Information Specialist: VELMA VALADEZ ([phone])[facility])[address] [place] [address] Lymphocytes/100 WBC (Bld) 22.0 % Normal 15.0-45.0 [facility] Comment on above: Performed By: #### L [id number] ####Health Information Specialist: VELMA VALADEZ ([phone])[facility])[address] [place] [address] MCH (RBC) [Entitic mass] 25.9 pg Low 26.0-34.0 [facility] Comment on above: Performed By: #### L [id number] ####Health Information Specialist: VELMA VALADEZ ([phone])[facility])[address] [place] [address] MCHC 30.4 % Low 30.5-36.0 [facility] Comment on above: Performed By: #### L [id number] ####Health Information Specialist: VELMA VALADEZ ([phone])[facility] ([facility])[address] [place] [address] MCV (RBC) [Entitic vol] 84.9 fL Normal 77.0-99.0 [facility] Comment on above: Performed By: #### L [id number] ####Health Information Specialist: VELMA VALADEZ ([phone])[facility])[address] [place] [address] Monocytes (Bld) [#/Vol] 0.6 10*3/uL Normal 0.0-0.9 [facility] Comment on above: Performed By: #### L [id number] ####Health Information Specialist: VELMA VALADEZ ([phone])[facility])[address] [place] [address] Monocytes/100 WBC (Bld) 10.0 % Normal 5.0-13.0 [facility] Comment on above: Performed By: #### L [id number] ####Health Information Specialist: VEMLA VALADEZ ([phone])[facility])[address] [place] [address] NEUTROPHILS ABSOLUTE 3.7 10*3/uL Normal 1.8-7.5 [facility] Comment on above: Performed By: #### L [id number] ####Health Information Specialist: VELMA VALADEZ ([phone])[facility] ([facility])[address] [place] [address] Neutrophils/100 WBC (Bld) 66.1 % Normal 38.0-82.0 [facility] Comment on above: Performed By: #### L [id number] ####Health Information Specialist: VELMA VALADEZ ([phone])[facility] ([facility])[address] [place] [address] NRBC 0.0 /100 WBCs Normal 0.0-2.0 [facility] Comment on above: Performed By: #### L [id number] ####Health Information Specialist: VELMA VALADEZ ([phone])[facility] ([facility])[address] [place] [address] Platelet mean volume (Bld) [Entitic vol] 9.8 fL Normal 9.0-12.7 [facility] Comment on above: Performed By: #### L [id number] ####Health Information Specialist: VELMA VALADEZ ([phone])[facility] ([facility])[address] [place] [address] Platelets (Bld) [#/Vol] 301 10*3/uL Normal 140-440 [facility] Comment on above: Performed By: #### L [id number] ####Health Information Specialist: VELMA VALADEZ ([phone])[facility] ([facility])[address] [place] [address] RBC (Bld) [#/Vol] 3.52 10*6/uL Low 3.80-5.20 [facility] Comment on above: Performed By: #### L [id number] ####Health Information Specialist: VELMA VALADEZ ([phone])[facility] ([facility])[address] [place] [address] [place] WBC (Bld) [#/Vol] 5.6 10*3/uL Normal 3.6-10.7 [facility] Comment on above: Performed By: #### L [id number] ####Health Information Specialist: VELMA VALADEZ ([phone])[facility] ([facility])[address] [place] [address] CBC panel Auto (Bld)on 07-07 Erythrocyte distribution width (RBC) [Ratio] 17.5 % High 11.5-15.0 [facility] Comment on above: Order Comment: Speci men Type: BLOOD SPECIMEN Ordering Facility: [facility] Address: [address] [place] [address] Performed By: #### 2 4362-6 #### [facility] CLIA [id number] [address] [place] [address] [place] Hematocrit (Bld) [Volume fraction] 32.7 % Low 36.0-46.0 [facility] Comment on above: Order Comment: Speci men Type: BLOOD SPECIMEN Ordering Facility: [facility] Address: [address] [place] [address] Performed By: #### 2 4362-6 #### [facility] CLIA [id number] [address] [place] [address] [place] Hemoglobin (Bld) [Mass/Vol] 10.2 g/dL Low 11.5-15.5 [facility] Comment on above: Order Comment: Speci men Type: BLOOD SPECIMEN Ordering Facility: [facility] Address: [address] [place] [address] Performed By: #### 2 4362-6 #### [facility] CLIA [id number] [address] [place] [address] [place] MCH (RBC) [Entitic mass] 26.8 pg Normal 26.0-34.0 [facility] Comment on above: Order Comment: Speci men Type: BLOOD SPECIMEN Ordering Facility: [facility] Address: [address] [place] [address] Performed By: #### 2 4362-6 #### [facility] CLIA [id number] [address] [place] [address] [place] MCHC (RBC) [Mass/Vol] 31.2 g/dL Normal 30.5-36.0 [facility] Comment on above: Order Comment: Speci men Type: BLOOD SPECIMEN Ordering Facility: [facility] Address: [address] [place] [address] Performed By: #### 2 4362-6 #### [facility] CLIA [id number] [address] [place] [address] [place] MCV (RBC) [Entitic vol] 86.1 fL Normal 80.0-100.0 [facility] Comment on above: Order Comment: Speci men Type: BLOOD SPECIMEN Ordering Facility: [facility] Address: [address] [place] [address] Performed By: #### 2 4362-6 #### [facility] CLIA [id number] [address] [place] [address] [place] Nucleated RBC (Bld) [#/Vol] 10*3/uL Normal <0.01 [facility] Comment on above: Order Comment: Speci men Type: BLOOD SPECIMEN Ordering Facility: [facility] Address: [address] [place] [address] Performed By: #### 2 4362-6 #### [facility] CLIA [id number] [address] [place] [address] [place] Platelet mean volume (Bld) [Entitic vol] 9.8 fL Normal 9.0-12.7 [facility] Comment on above: Order Comment: Speci men Type: BLOOD SPECIMEN Ordering Facility: [facility] Address: [address] [place] [address] Performed By: #### 2 4362-6 #### [facility] CLIA [id number] [address] [id number] [address] [place] Platelets (Bld) [#/Vol] 284 10*3/uL Normal 150-400 [facility] Comment on above: Order Comment: Speci men Type: BLOOD SPECIMEN Ordering Facility: [facility] Address: [address] [place] [address] Performed By: #### 2 4362-6 #### [facility] CLIA [id number] [address] [place] [address] [place] RBC (Bld) [#/Vol] 3.80 10*6/uL Low 3.90-5.20 [facility] Comment on above: Order Comment: Speci men Type: BLOOD SPECIMEN Ordering Facility: [facility] Address: [address] [place] [address] Performed By: #### 2 4362-6 #### [facility] CLIA [id number] [address] [place] [address] [place] WBC (Bld) [#/Vol] 5.72 10*3/uL Normal 3.70-11.00 [facility] Comment on above: Order Comment: Speci men Type: BLOOD SPECIMEN Ordering Facility: [facility] Address: [address] [place] [address] Performed By: #### 2 4362-6 #### [facility] CLIA [id number] [address] [place] [address] [place] ORBITS WO [...] changes. Unchanged appearance of left globe/phthisis bulbi. Ripening Room Attendant: PSCB Transcribe Date/Time: Jul 07 2024 8:24P Dictated by : ULICES LEBLNAC MD This examination was interpreted and the report reviewed and electronically signed by: DE JAIN MD on Jul 07 2024 9:18PM EST [id number] Normal [facility] HISTORY PHYSICALon 4 HISTORY PHYSICAL HNO ID: [id number] Author: FELICIA LEVY MD Service: General Internal [...] 3pm to 7am): Please page on-call resident [phone] (Jonathan Chaudhry Subjective CHIEF COMPLAINT: Acute angle closure glaucoma HPI: Mel Castillo is a 83 year old female with a PMH of COPD, HTN, Afib (on Lovenox), CKD Stage 3, L retinal detachment, recurrent embolic events, and 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 She was subsequently taken by the bureau chief for peripheral iridotomy's, which helped to reduce elevated intraocular pressure down to 10.2 mmHg in the R eye. Furthermore, was evaluated by stroke team at [facility] who reviewed her images and believed her headache and severe vision loss was secondary to the acute closure glaucoma and not stroke. Ultimately, it was determined that due to vision now being reduced to only one eye she required retinal specialist at [employer] for repair of acute retinal detachment on [...] of breath., Disp: , Rfl: , 07/06/2024 frkfihmulgg-ubuesklom-n ilanter (TRELEGY ELLIPTA) 100-62.5-25 mcg inhalation powder, Inhale 1 (more content not included)... Normal [facility] NURSING PROGon 07-07-2024 NURSING PROG HNO ID: [id number] Author: SONNY CASTILLO RN Service: Nursing Author [...] notify nurse if she experiences pain. Normal [facility] NURSING PROG HNO ID: [id number] Author: WINIFRED HILLS RN Service: ? Author Type: Registered Nurse Type: Nursing Progress Note Filed: 07/07/2024 12:15 Note Text: Transfer Note: PATIENT NAME: Mel Castillo Patient Location: H060 031/H060-31 Room: H060-31 Patient transferred into room/unit H60-31 in stable condition. Actions taken: Team notified. Patient belongings with patient. Pt oriented to the floor policy and fall prevention protocol. Call light within reach. Normal [facility] Nursing Noteon 07-07-2024 Nursing Note Report called to [facility]. Normal [facility] Progress Noteon 07-07-2024 Progress Note Nutrition rescreen completed. Chart reviewed. Patient to be monitored and followed by the diet product technician. Normal [facility] Renal function 2000 panelon 07-07-2024 Albumin [Mass/Vol] 3.7 g/dL Low 3.9-4.9 [facility] Comment on above: Order Comment: Speci men Type: BLOOD SPECIMEN Ordering Facility: [facility] Address: [address] [place] [address] Performed By: #### 2 4362-6 #### [facility] CLIA [id number] [address] [place] [address] [place] Anion gap [Moles/Vol] 12 mmol/L Normal 8-15 [facility] Comment on above: Order Comment: Speci men Type: BLOOD SPECIMEN Ordering Facility: [facility] Address: [address] [place] [address] Performed By: #### 2 4362-6 #### [facility] CLIA [id number] [address] [place] [address] [place] Calcium [Mass/Vol] 9.2 mg/dL Normal 8.5-10.2 [facility] Comment on above: Order Comment: Speci men Type: BLOOD SPECIMEN Ordering Facility: [facility] Address: [address] [place] [address] Performed By: #### 2 4362-6 #### [facility] CLIA [id number] [address] [place] [address] [place] Chloride [Moles/Vol] 107 mmol/L Normal 98-107 [facility] Comment on above: Order Comment: Speci men Type: BLOOD SPECIMEN Ordering Facility: [facility] Address: [address] [place] [address] Performed By: #### 2 4362-6 #### [facility] CLIA [id number] [address] [place] [address] [place] CO2 [Moles/Vol] 20 mmol/L Low 22-30 [facility] Comment on above: Order Comment: Speci men Type: BLOOD SPECIMEN Ordering Facility: [facility] Address: [address] [place] [address] Performed By: #### 2 4362-6 #### [facility] CLIA [id number] [address] [place] [address] [place] Creatinine [Mass/Vol] 0.82 mg/dL Normal 0.58-0.96 [facility] Comment on above: Order Comment: Speci men Type: BLOOD SPECIMEN Ordering Facility: [facility] Address: [address] [place] [address] Performed By: #### 2 4362-6 #### [facility] CLIA [id number] [address] [place] [address] [place] Creatinine and Glomerular filtration rate.predicted panel (S/P/Bld) 71 mL/min/1.73m??? Normal >=60 [facility] Comment on above: Order Comment: Speci men Type: BLOOD SPECIMEN Ordering Facility: [facility] Address: [address] [place] [address] Result Comment: Isa mated Glomerular Filtration Rate [...] GFR. Performed By: #### 2 4362-6 #### [facility] CLIA [id number] [address] [place] [address] [place] Glucose [Mass/Vol] 106 mg/dL High 74-99 [facility] Comment on above: Order Comment: Speci men Type: BLOOD SPECIMEN Ordering Facility: [facility] Address: [address] [place] [address] Result Comment: The [place] Diabetes Association (ADA) provides guidance for cutoff [...] Standards of Medical Care in Diabetes 2016, [place] Diabetes [employer]. Diabetes Care. 2016.39(Suppl 1). Performed By: #### 2 4362-6 #### [facility] CLIA [id number] [address] [place] [address] [place] Phosphate [Mass/Vol] 3.0 mg/dL Normal 2.7-4.8 [facility] Comment on above: Order Comment: Speci men Type: BLOOD SPECIMEN Ordering Facility: [facility] Address: [address] [place] [address] Performed By: #### 2 4362-6 #### [facility] CLIA [id number] [address] [place] [address] [place] Potassium [Moles/Vol] 4.3 mmol/L Normal 3.7-5.1 [facility] Comment on above: Order Comment: Speci men Type: BLOOD SPECIMEN Ordering Facility: [facility] Address: [address] [place] [address] Performed By: #### 2 4362-6 #### [facility] CLIA [id number] [address] [place] [address] [place] Sodium [Moles/Vol] 139 mmol/L Normal 136-144 [facility] Comment on above: Order Comment: Speci men Type: BLOOD SPECIMEN Ordering Facility: [facility] Address: [address] [place] [address] Performed By: #### 2 4362-6 #### [facility] CLIA [id number] [address] [place] [address] [place] Urea nitrogen [Mass/Vol] 16 mg/dL Normal 7-21 [facility] Comment on above: Order Comment: Speci men Type: BLOOD SPECIMEN Ordering Facility: [facility] Address: [address] [place] [address] Performed By: #### 2 4362-6 #### [facility] CLIA [id number] [address] [place] [address] [place] [id number] 07-06-2024 [id number] Normal [facility] BASIC METABOLIC PANELon 06-18 Anion gap [Moles/Vol] 9 mmol/L Normal 3-13 [facility] Comment on above: Performed By: #### L AB15 ####Health Information Specialist: VELMA VALADEZ ([phone])[facility])[address] [place] [address] Calcium [Mass/Vol] 8.9 mg/dL Normal 8.8-10.0 [facility] Comment on above: Performed By: #### L AB15 ####Health Information Specialist: VELMA VALADEZ ([phone])[facility])[address] [place] [address] Chloride [Moles/Vol] 113 mmol/L High 98-107 [facility] Comment on above: Performed By: #### L AB15 ####Health Information Specialist: VELMA VALADEZ ([phone])[facility])[address] [place] [address] CO2 [Moles/Vol] 18 mmol/L Low 23-31 [facility] Comment on above: Performed By: #### L AB15 ####Health Information Specialist: VELMA VALADEZ ([phone])[facility])[address] [place] [address] Creatinine [Mass/Vol] 0.86 mg/dL Normal 0.57-1.11 [facility] Comment on above: Performed By: #### L AB15 ####Health Information Specialist: VELMA VALADEZ ([phone])[facility])[address] [place] [address] GLOMERULAR FILTRATION RATE ML/MIN/1.73 SQ M.PREDICTED 66.7 mL/min/1.73m*2 Normal >60.0 [facility] Comment on above: Result Comment: Calc ulation based on the Chronic Kidney Disease Epidemiology Collaboration (CKD-EPI) equation refit without adjustment for race Performed By: #### L AB15 ####Health Information Specialist: VELMA VALADEZ ([phone])[facility] ([facility])[address] [place] [address] Glucose [Mass/Vol] 74 mg/dL Low 82-115 [facility] Comment on above: Performed By: #### L AB15 ####Health Information Specialist: VELMA VALADEZ ([phone])[facility])[address] [place] [address] Potassium [Moles/Vol] 4.5 mmol/L Normal 3.5-5.1 [facility] Comment on above: Result Comment: [facility] potassium values may be up to 0.5 mmol/L lower than serum values. Performed By: #### L AB15 ####Health Information Specialist: VELMA VALADEZ ([phone])[facility] ([facility])[address] [place] [address] Sodium [Moles/Vol] 140 mmol/L Normal 136-145 [facility] Comment on above: Performed By: #### L AB15 ####Health Information Specialist: VELMA VALADEZ ([phone])[facility])[address] [place] [address] [place] Urea nitrogen [Mass/Vol] 16 mg/dL Normal 9-23 [facility] Comment on above: Performed By: #### L AB15 ####Health Information Specialist: VELMA VALADEZ ([phone])[facility])[address] [place] [address] Basic metabolic 1998 panelon 07-06-2024 Anion gap [Moles/Vol] 9 mmol/L 3 - 13 mmol/L [facility] Calcium [Mass/Vol] 8.9 mg/dL 8.8 - 10. 0 mg/dL [facility] Chloride [Moles/Vol] 113 mmol/L High 98 - 10 7 mmol/L [facility] CO2 [Moles/Vol] 18 mmol/L Low 23 - 31 mmol/L [facility] Creatinine [Mass/Vol] 0.86 mg/dL 0.57 - 1.11 mg/dL [facility] GFR/1.73 sq M.predicted (S/P/Bld) [Vol rate/Area] 66.7 mL/min - PINF [facility] Comment on above: Calculation based on the Chronic Kidney Disease Epidemiology Collaboration (CKD-EPI) equation refit without adjustment for race Glucose [Mass/Vol] 74 mg/dL Low 82 - 115 mg/dL [facility] Interpretation and review of laboratory results Abnormal [facility] Potassium [Moles/Vol] 4.5 mmol/L 3.5 - 5.1 mmol/L [facility] Comment on above: Plasma potassium chris ues may be up to 0.5 mmol/L lower than serum values. Sodium [Moles/Vol] 140 mmol/L 136 - 145 mmol/L [facility] Urea nitrogen [Mass/Vol] 16 mg/dL 9 - 23 mg/dL [facility] CBC W Auto Differential pane l (Bld)Ordered By: Daija Doran on 07-06-2024 Basophils (Bld) [#/Vol] 0 10*3/uL 0.0 - 0.2 10*3/uL [facility] Basophils/100 WBC (Bld) 0.5 % 0.0 - 2.0 % [facility] Eosinophils (Bld) [#/Vol] 0 10*3/uL 0.0 - 0.5 10*3/uL [facility] Eosinophils/100 WBC (Bld) 0.3 % 0.0 - 6.0 % [facility] Erythrocyte distribution width (RBC) [Ratio] 17.8 % High 11.5 - 15.0 % [facility] Hematocrit (Bld) [Volume fraction] 31.8 % Low 35.0 - 47.0 % [facility] Hemoglobin (Bld) [Mass/Vol] 9.7 g/dL Low 11.7 - 16.0 g/dL [facility] Immature granulocytes (Bld) [#/Vol] 0 10*3/uL NINF - 0.1 10*3/uL [facility] Immature granulocytes/100 WBC (Bld) 0.3 % 0.0 - 2.0 % [facility] Interpretation and review of laboratory results Abnormal [facility] Lymphocytes (Bld) [#/Vol] 1.2 10*3/uL 1.0 - 4.3 10*3/uL [facility] Lymphocytes/100 WBC (Bld) 18.9 % 15.0 - 45.0 % [facility] MCH (RBC) [Entitic mass] 26.4 pg 26.0 - 34.0 pg [facility] MCHC (RBC) [Mass/Vol] 30.5 % 30.5 - 36.0 % [facility] MCV (RBC) [Entitic vol] 86.4 fL 77.0 - 99.0 fL [facility] Monocytes (Bld) [#/Vol] 0.5 10*3/uL 0.0 - 0.9 10*3/uL [facility] Monocytes/100 WBC (Bld) 8.2 % 5.0 - 13.0 % [facility] Neutrophils (Bld) [#/Vol] 4.4 10*3/uL 1.8 - 7.5 10*3/uL [facility] Neutrophils/100 WBC (Bld) 71.8 % 38.0 - 82.0 % [facility] Nucleated RBC/100 WBC (Bld) [Ratio] 0 % [facility] Platelet mean volume (Bld) [Entitic vol] 10.9 fL 9.0 - 12.7 fL [facility] Platelets (Bld) [#/Vol] 278 10*3/uL 140 - 440 10*3/uL [facility] RBC (Bld) [#/Vol] 3.68 10*6/uL Low 3.80 - 5.2 0 10*6/uL [facility] WBC (Bld) [#/Vol] 6.1 10*3/uL 3.6 - 10.7 10*3/uL [facility] CBC WITH AUTO DIFFERENTIALon 07-06-2024 Basophils (Bld) [#/Vol] 0.0 10*3/uL Normal 0.0-0.2 [facility] Comment on above: Performed By: #### L [id number] ####Health Information Specialist: VELMA VALADEZ ([phone])[facility] ([facility])[address] [place] [address] Basophils/100 WBC (Bld) 0.5 % Normal 0.0-2.0 [facility] Comment on above: Performed By: #### L [id number] ####Health Information Specialist: VELMA VALADEZ ([phone])[facility])[address] [place] [address] Eosinophils (Bld) [#/Vol] 0.0 10*3/uL Normal 0.0-0.5 [facility] Comment on above: Performed By: #### L [id number] ####Health Information Specialist: VELMA VALADEZ ([phone])[facility])[address] [place] [address] Eosinophils/100 WBC (Bld) 0.3 % Normal 0.0-6.0 [facility] Comment on above: Performed By: #### L [id number] ####Health Information Specialist: VELMA VALADEZ ([phone])[facility] ([facility])[address] [place] [address] Erythrocyte distribution width (RBC) [Ratio] 17.8 % High 11.5-15.0 [facility] Comment on above: Performed By: #### L [id number] ####Health Information Specialist: VELMA VALADEZ ([phone])[facility])[address] [place] [address] Hematocrit (Bld) [Volume fraction] 31.8 % Low 35.0-47.0 [facility] Comment on above: Performed By: #### L [id number] ####Health Information Specialist: VELMA VALADEZ ([phone])[facility])[address] [place] [address] Hemoglobin (Bld) [Mass/Vol] 9.7 g/dL Low 11.7-16.0 [facility] Comment on above: Performed By: #### L [id number] ####Health Information Specialist: VELMA VALADEZ ([phone])[facility] ([address] IMMATURE GRANS % 0.3 % Normal 0.0-2.0 [facility] Comment on above: Performed By: #### L [id number] ####Health Information Specialist: VELMA VALADEZ ([phone])[facility])[address] [place] [address] IMMATURE GRANS ABSOLUTE 0.0 10*3/uL Normal <0.1 [facility] Comment on above: Performed By: #### L [id number] ####Health Information Specialist: VELMA VALADEZ ([phone])[facility])[address] [place] [address] Lymphocytes (Bld) [#/Vol] 1.2 10*3/uL Normal 1.0-4.3 [facility] Comment on above: Performed By: #### L [id number] ####Health Information Specialist: VELMA VALADEZ ([phone])[facility])[address] [place] [address] Lymphocytes/100 WBC (Bld) 18.9 % Normal 15.0-45.0 [facility] Comment on above: Performed By: #### L [id number] ####Health Information Specialist: VELMA VALADEZ ([phone])[facility])[address] [place] [address] MCH (RBC) [Entitic mass] 26.4 pg Normal 26.0-34.0 [facility] Comment on above: Performed By: #### L [id number] ####Health Information Specialist: VELMA VALADEZ ([phone])[facility])[address] [place] [address] MCHC 30.5 % Normal 30.5-36.0 [facility] Comment on above: Performed By: #### L [id number] ####Health Information Specialist: VELMA VALADEZ ([phone])[facility])[address] [place] [address] MCV (RBC) [Entitic vol] 86.4 fL Normal 77.0-99.0 [facility] Comment on above: Performed By: #### L [id number] ####Health Information Specialist: VELMA VALADEZ ([phone])[facility] ([facility])[address] [place] [address] Monocytes (Bld) [#/Vol] 0.5 10*3/uL Normal 0.0-0.9 [facility] Comment on above: Performed By: #### L [id number] ####Health Information Specialist: VELMA VALADEZ ([phone])[facility] ([facility])[address] [place] [address] Monocytes/100 WBC (Bld) 8.2 % Normal 5.0-13.0 [facility] Comment on above: Performed By: #### L [id number] ####Health Information Specialist: VELMA VALADEZ ([phone])[facility] ([facility])[address] [place] [address] NEUTROPHILS ABSOLUTE 4.4 10*3/uL Normal 1.8-7.5 [facility] Comment on above: Performed By: #### L [id number] ####Health Information Specialist: VELMA VALADEZ ([phone])[facility] ([facility])[address] [place] [address] Neutrophils/100 WBC (Bld) 71.8 % Normal 38.0-82.0 [facility] Comment on above: Performed By: #### L [id number] ####Health Information Specialist: VELMA VALADEZ ([phone])[facility] ([facility])[address] [place] [address] NRBC 0.0 /100 WBCs Normal 0.0-2.0 [facility] Comment on above: Performed By: #### L [id number] ####Health Information Specialist: VELMA VALADEZ ([phone])[facility] ([facility])[address] [place] [address] Platelet mean volume (Bld) [Entitic vol] 10.9 fL Normal 9.0-12.7 [facility] Comment on above: Performed By: #### L [id number] ####Health Information Specialist: VELMA VALADEZ ([phone])[facility] ([facility])[address] [place] [address] Platelets (Bld) [#/Vol] 278 10*3/uL Normal 140-440 [facility] Comment on above: Performed By: #### L [id number] ####Health Information Specialist: VELMA VALADEZ ([phone])[facility])[address] [place] [address] RBC (Bld) [#/Vol] 3.68 10*6/uL Low 3.80-5.20 [facility] Comment on above: Performed By: #### L [id number] ####Health Information Specialist: VELMA VALADEZ ([phone])[facility])[address] [place] [address] WBC (Bld) [#/Vol] 6.1 10*3/uL Normal 3.6-10.7 [facility] Comment on above: Performed By: #### L [id number] ####Health Information Specialist: VELMA VALADZE ([phone])[facility] ([facility])[address] [place], [place] [address]Nisa [facility] MEL GUADARRAMA ([id number]) [address] [facility] Date Time Provider Department 07/06/24 RYAN ELIZONDO During your visit today, we recorded the following information about you: Ryan Elizondo MD 07/06/2024 2:42 PM Signed TELEPHONE ENCOUNTER 07/06/2024 Patient with recent stroke and admitted to [facility] where she was noted to have elevated IOP with retinal detachment of the right eye by consult bureau chief. 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 Was contacted about potential transfer to [facility] to be evaluated by retinal specialist. Discussed that given she is currently admitted on neurology floor the decision to transfer to [facility] should be discussed with medicine vs [...] as needed for wheezing/shortness of breath. - jbgfjlbcnje-hcsjejuqd-e ilanter (TRELEGY ELLIPTA) 100-62.5-25 mcg inhalation powder [...] Status:Closed by RYAN ELIZONDO on 07/06/24 [facility] Consult Normal [facility] Nursing Noteon 07-06-2024 Nursing Note This RN called Protective Services to try and locate pts lost glasses from 07/05/2024. Glasses that match the description are in lost and found. Will attempt to see if glasses are a match. Normal [facility] Progress Noteon 07-06-2024 Progress Note Normal [facility] Progress Note Normal [facility] CBC (HEMOGRAM)on 07-05-2024 Erythrocyte distribution width (RBC) [Ratio] 17.2 % High 11.5-15.0 [facility] Comment on above: Performed By: #### L [id number] ####Health Information Specialist: VELMA VALADEZ ([phone])[facility] ([address] Hematocrit (Bld) [Volume fraction] 32.8 % Low 35.0-47.0 [facility] Comment on above: Performed By: #### L [id number] ####Health Information Specialist: VELMA VALADEZ ([phone])[facility])[address] [place] [address] Hemoglobin (Bld) [Mass/Vol] 10.6 g/dL Low 11.7-16.0 [facility] Comment on above: Performed By: #### L [id number] ####Health Information Specialist: VELMA VALADEZ ([phone])[facility] ([facility])[address] [place] [address] MCH (RBC) [Entitic mass] 26.4 pg Normal 26.0-34.0 [facility] Comment on above: Performed By: #### L [id number] ####Health Information Specialist: VELMA VALADEZ ([phone])[facility])[address] [place] [address] MCHC 32.3 % Normal 30.5-36.0 [facility] Comment on above: Performed By: #### L [id number] ####Health Information Specialist: VELMA VALADEZ ([phone])[facility] ([facility])[address] [place] [address] MCV (RBC) [Entitic vol] 81.8 fL Normal 77.0-99.0 [facility] Comment on above: Performed By: #### L [id number] ####Health Information Specialist: VELMA VALADEZ ([phone])[facility])[address] [place] [address] Platelet mean volume (Bld) [Entitic vol] 9.6 fL Normal 9.0-12.7 [facility] Comment on above: Performed By: #### L [id number] ####Health Information Specialist: VELMA VALADEZ ([phone])[facility])[address] [place] [address] Platelets (Bld) [#/Vol] 349 10*3/uL Normal 140-440 [facility] Comment on above: Performed By: #### L [id number] ####Health Information Specialist: VELMA VALADEZ ([phone])[facility] ([facility])[address] [place] [address] RBC (Bld) [#/Vol] 4.01 10*6/uL Normal 3.80-5.20 [facility] Comment on above: Performed By: #### L [id number] ####Health Information Specialist: VELMA VALADEZ ([phone])[facility] ([facility])[address] [place] [address] WBC (Bld) [#/Vol] 5.5 10*3/uL Normal 3.6-10.7 [facility] Comment on above: Performed By: #### L [id number] ####Health Information Specialist: VELMA VALADEZ ([phone])[facility] ([facility])[address] [place] [address] CBC panel Auto (Bld)on 07-05 Erythrocyte distribution width (RBC) [Ratio] 17.2 % High 11.5 - 15.0 % [facility] Hematocrit (Bld) [Volume fraction] 32.8 % Low 35.0 - 47.0 % [facility] Hemoglobin (Bld) [Mass/Vol] 10.6 g/dL Low 11.7 - 16.0 g/dL [facility] Interpretation and review of laboratory results Abnormal [facility] MCH (RBC) [Entitic mass] 26.4 pg 26.0 - 34.0 pg [facility] MCHC (RBC) [Mass/Vol] 32.3 % 30.5 - 36.0 % [facility] MCV (RBC) [Entitic vol] 81.8 fL 77.0 - 99.0 fL [facility] Platelet mean volume (Bld) [Entitic vol] 9.6 fL 9.0 - 12.7 fL [facility] Platelets (Bld) [#/Vol] 349 10*3/uL 140 - 440 10*3/uL [facility] RBC (Bld) [#/Vol] 4.01 10*6/uL 3.80 - 5.2 0 10*6/uL [facility] WBC (Bld) [#/Vol] 5.5 10*3/uL 3.6 - 10.7 10*3/uL [facility] COMPREHENSIVE METABOLIC PANE Gilberto 07-05-2024 Albumin [Mass/Vol] 3.6 g/dL Normal 3.4-4.8 [facility] Comment on above: Performed By: #### L [id number], [id number] ####Health Information Specialist: VELMA VALADEZ ([phone])[facility] [facility])[address] [place] [address] ALP [Catalytic activity/Vol] 94 U/L Normal 40-150 [facility] Comment on above: Performed By: #### L [id number], [id number] ####Health Information Specialist: VELMA VALADEZ ([phone])[facility] ([facility])[address] [place] [address] ALT [Catalytic activity/Vol] 23 U/L Normal <30 [facility] Comment on above: Performed By: #### L [id number], [id number] ####Health Information Specialist: VELMA VALADEZ ([phone])[facility] ([facility])[address] [place] [address] Anion gap [Moles/Vol] 10 mmol/L Normal 3-13 [facility] Comment on above: Performed By: #### L [id number], [id number] ####Health Information Specialist: VELMA VALADEZ ([phone])[facility] ([facility])[address] [place] [address] AST [Catalytic activity/Vol] 26 U/L Normal <34 [facility] Comment on above: Performed By: #### L [id number], [id number] ####Health Information Specialist: VELMA VALADEZ ([phone])[facility] ([facility])[address] [place] [address] [place] Bilirubin [Mass/Vol] 0.7 mg/dL Normal <1.2 [facility] Comment on above: Performed By: #### L [id number], LAB17 ####Health Information Specialist: VELMA VALADEZ ([phone])[facility] ([facility])[address] [place] [address] Calcium [Mass/Vol] 9.2 mg/dL Normal 8.8-10.0 [facility] Comment on above: Performed By: #### L [id number], [id number] ####Health Information Specialist: VELMA VALADEZ ([phone])[facility])[address] [place] [address] Chloride [Moles/Vol] 107 mmol/L Normal 98-107 [facility] Comment on above: Performed By: #### L [id number], LAB17 ####Health Information Specialist: VELMA VALADEZ ([phone])[facility] ([facility])[address] [place] [address] CO2 [Moles/Vol] 22 mmol/L Low 23-31 [facility] Comment on above: Performed By: #### L [id number], LAB17 ####Health Information Specialist: VELMA VALADEZ ([phone])[facility])[address] [place] [address] Creatinine [Mass/Vol] 0.82 mg/dL Normal 0.57-1.11 [facility] Comment on above: Performed By: #### L [id number], LAB17 ####Health Information Specialist: VELMA VALADEZ ([phone])[facility])[address] [place] [address] GLOMERULAR FILTRATION RATE ML/MIN/1.73 SQ M.PREDICTED 70.6 mL/min/1.73m*2 Normal >60.0 [facility] Comment on above: Result Comment: Calc ulation based on the Chronic Kidney Disease Epidemiology Collaboration (CKD-EPI) equation refit without adjustment for race Performed By: #### L [id number], [id number] ####Health Information Specialist: VELMA VALADEZ ([phone])[facility] ([facility])[address] [place] [address] [place] Glucose [Mass/Vol] 118 mg/dL High 82-115 [facility] Comment on above: Performed By: #### L [id number], LAB17 ####Health Information Specialist: VELMA VALADEZ ([phone])[facility])[address] [place] [address] [place] Potassium [Moles/Vol] 4.3 mmol/L Normal 3.5-5.1 [facility] Comment on above: Result Comment: [facility] potassium values may be up to 0.5 mmol/L lower than serum values. Performed By: #### L [id number], LAB17 ####Health Information Specialist: VELMA VALADEZ ([phone])[address] Protein [Mass/Vol] 7.0 g/dL Normal 6.4-8.3 [facility] Comment on above: Performed By: #### L [id number], LAB17 ####Health Information Specialist: VELMA VALADEZ ([phone])[address] Sodium [Moles/Vol] 139 mmol/L Normal 136-145 [facility] Comment on above: Performed By: #### L [id number], LAB17 ####Health Information Specialist: VELMA VALADEZ ([phone])[facility])[address] [place] [address] Urea nitrogen [Mass/Vol] 13 mg/dL Normal 9-23 [facility] Comment on above: Performed By: #### L [id number], LAB17 ####Health Information Specialist: VELMA VALADEZ ([phone])[address] HEAD NECK ANGIO W AND WO IV CONTRASTon 07-05-2024 CT HEAD NECK ANGIO W AND WO IV CONTRAST Normal [facility] CT HEAD WO IV CONTRASTon CT HEAD WO IV CONTRAST Normal [facility] CT Head WO contraston 2023 Patient Name: MEL CARVER RD : 1940 Exam Date/Time: 07/05/2024 04:36 Procedure: [...] of the cervica (more content not included)... [facility], Cirilo Khalil MD - 07/05/2024 Patient Name: MEL POP : 1940 [facility]#: [id number] Exam Date/Time: 07/05/2024 04:36 Procedure: CT HEAD [...] acute consolidative process (more content not included)... [facility] CT PERFUSIONon 07-05-2024 CT PERFUSION Normal [facility] CTA Head vessels and Neck ve ssels WO and W contrast Cheryl 07-05-2024 Patient Name: MEL CARVER RD : 1940 [facility]#: [id number] Exam Date/Time: 07/05/2024 04:36 Procedure: CT HEAD [...] Multilevel degenerative chopra (more content not included)... [facility] Cory, Cirilo Khalil MD - 07/05/2024 Patient Name: MEL POP : 1940 [facility]#: [id number] Exam Date/Time: 07/05/2024 04:36 Procedure: CT HEAD [...] no acute conso (more content not included)... [facility] Comprehensive metabolic 1998 panelon 07-05-2024 Albumin [Mass/Vol] 3.6 g/dL 3.4 - 4.8 g/dL [facility] ALP [Catalytic activity/Vol] 94 U/L 40 - 150 U/L [facility] ALT [Catalytic activity/Vol] 23 U/L NINF - 30 U/L [facility] Anion gap [Moles/Vol] 10 mmol/L 3 - 13 mmol/L [facility] AST [Catalytic activity/Vol] 26 U/L NINF - 34 U/L [facility] Bilirubin [Mass/Vol] 0.7 mg/dL NINF - 1.2 mg/dL [facility] Calcium [Mass/Vol] 9.2 mg/dL 8.8 - 10. 0 mg/dL [facility] Chloride [Moles/Vol] 107 mmol/L 98 - 10 7 mmol/L [facility] CO2 [Moles/Vol] 22 mmol/L Low 23 - 31 mmol/L [facility] Creatinine [Mass/Vol] 0.82 mg/dL 0.57 - 1.11 mg/dL [facility] GFR/1.73 sq M.predicted (S/P/Bld) [Vol rate/Area] 70.6 mL/min - PINF [facility] Comment on above: Calculation based on the Chronic Kidney Disease Epidemiology Collaboration (CKD-EPI) equation refit without adjustment for race Glucose [Mass/Vol] 118 mg/dL High 82 - 115 mg/dL [facility] Interpretation and review of laboratory results Abnormal [facility] Potassium [Moles/Vol] 4.3 mmol/L 3.5 - 5.1 mmol/L [facility] Comment on above: Plasma potassium chris ues may be up to 0.5 mmol/L lower than serum values. Protein [Mass/Vol] 7 g/dL 6.4 - 8.3 g/dL [facility] Sodium [Moles/Vol] 139 mmol/L 136 - 145 mmol/L [facility] Urea nitrogen [Mass/Vol] 13 mg/dL 9 - 23 mg/dL [facility] Consulton 07-05-2024 Consult Normal [facility] Consult [facility] Consult [facility] Consult Normal [facility] ECG 12-LEADon 07-05-2024 ECG 12-LEAD IMPRESSION: Atrial fibrillation Electronically Signed On 07-05-2024 12:39:21 EST by Jhonatan Hernandez [facility] ED Nursing Noteon 07-05-[address] Carlson at bedside. [facility] ED Nursing Note Provider notified of patient request for pain meds. Normal [facility] ED Nursing Note Dr. Carlson at bedside [facility] ED Nursing Note Patient is returning back to room 32 at this time with Jose, Medic. Normal [facility] ED Nursing Note Pt emergently going to eye clinic. Pt being transported in wheelchair with trauma float RADHA Hinkle and Maritza RN Pt being transported on zoll monitor and acls kit. Normal [facility] ED Nursing Note Ophthalmology at bedside [facility] ED Nursing Note Report to Maritza FRAGA [facility] ED Provider Noteon ED Provider Note Normal [facility] HEMOGLOBIN A1Con 07-05-2024 Glucose [Mass/Vol] 120 mg/dL Normal [facility] Comment on above: Result Comment: BUBBA R COMMENTS:HbA1c values of 5.7-6.4 percent indicate an increased risk for developing diabetes mellitus. HbA1c values greater than or equal to 6.5 percent are diagnostic of diabetes mellitus. For diagnosis of diabetes in individuals without unequivocal hyperglycemia, results should be confirmed by repeat testing. Performed By: #### L [id number] ####Health Information Specialist: VELMA VALADEZ ([phone])[facility] ([facility] HEMOGLOBIN A1C 5.8 %HbA1C High <5.7 [facility] Comment on above: Result Comment: Norm al less than 5.7%Prediabetes 5.7% to 6.4%Diabetes 6.5% or higher--HgbA1C levels may not be accurate in patients who have renal disease, received recent blood transfusions, are anemic, or who have dyshemoglobinemia. Performed By: #### L AB90 ####Health Information Specialist: VELMA VALADEZ ([phone])[facility])[address] [place] [address] HIGH SENSITIVITY TROPONIN, S ERIAL BASELINEon 07-05-2024 TROPONIN HIGH SENSITIVITY BASELINE 14 ng/L Normal <=14 [facility] Comment on above: Performed By: #### L [id number] ####Health Information Specialist: VELMA VALADEZ ([phone])[facility] ([facility])[address] [place] [address] HIGH SENSITIVITY TROPONIN, S ERIAL, SECOND TESTon 07-05-2024 TROPONIN HS DELTA, BASELINE TO SECOND -5 ng/L Normal <=2 [facility] Comment on above: Result Comment: [...] further clinical guidance. Performed By: #### L [id number], LAB17 ####Health Information Specialist: VELMA VALADEZ ([phone])[facility] ([facility])[address] [place] [address] TROPONIN HS, SERIAL REFLEX, TEST TWO 9 ng/L Normal <=14 [facility] Comment on above: Performed By: #### L [id number], LAB17 ####Health Information Specialist: VELMA VALADEZ ([phone])[facility])[address] [place] [address] Laboratory - Chemistry and C hemistry - challengeon 07-05-2024 Average glucose Estimated from glycated hemoglobin (Bld) [Mass/Vol] 120 mg/dL [facility] Anion gap (Bld) [Moles/Vol] 8 mmol/L 3.00 - 13.00 [facility] Calcium.ionized (Bld) [Moles/Vol] 4.5 mg/dl 4.30 - 5.20 mg/dl [facility] Comment on above: Performed by [employer] CLIA ID:[id number] [place], [place] Device: [id number] Tile Inspector ID: [id number] Chloride [Moles/Vol] 108 mmol/L 98 - 11 4 mmol/L [facility] CO2 [Moles/Vol] 23 mmol/L 21 - 29 mmol/L [facility] Creatinine [Mass/Vol] 0.9 mg/dL 0.6 - 1.3 mg/dL [facility] GFR/1.73 sq M.predicted CKD-EPI (S/P/Bld) [Vol rate/Area] 63.2 [facility] Comment on above: KDIGO guidelines pro vide [...] 104 mg/dL High 70 - 100 mg/dL [facility] Potassium [Moles/Vol] 4.5 mmol/L 3.4 - 5.1 mmol/L [facility] Sodium [Moles/Vol] 139 mmol/L 133 - 145 mmol/L [facility] Urea (Bld) [Mass/Vol] 14 mg/dL 4 - 22 mg/dL [facility] Glucose [Mass/Vol] 104 mg/dL High 70 - 100 mg/dL [facility] Laboratory - Coagulationon 1 09-05-2023 aPTT Coag (PPP) [Time] 30.4 s 20.0 - 30.5 s [facility] Coag (PPP) [Relative time] 1 {INR} 0.9 - 1.1 [facility] Comment on above: Recommended Anticoag ulant Therapy: [...] 11.7 s 9.0 - 1 2.0 s [facility] Laboratory - Hematology and Cell countson 07-05-2024 HbA1c (Bld) [Mass fraction] 5.8 % High NINF [facility] Comment on above: Normal less than 5.7 [...] MD Electronically Signed Date/Time: 07/05/2024 12:13 PM [facility] Patient Name: MEL CARVER RD [facility] 1940 [id number] Exam Date/Time: 07/05/2024 11:45 Procedure: MR BRAIN [...] There is artifact within the right globe. [facility] Ming Fry MD - 07/05/2024 Patient Name: MEL POP [facility] 1940 [id number] Exam Date/Time: 07/05/2024 11:45 Procedure: MR BRAIN [...] Electronically Signed Date/Time: 07/05/2024 12:13 PM EST [facility] Radiology Study observation (narrative) Inna lockhart MR Brain WO contrastOrdered By: Ming Fry on 07-05-2024 [facility] Work Phone: No Panel Informationon 07-05 Heart Rate 59 bpm [facility] P [place] 0 degrees [facility] LA Interval 0 ms [facility] QRS [place] 37 degrees [facility] QRSD Interval 98 ms [facility] QT Interval 423 ms [facility] QTC Interval 418 ms [facility] T Wave [place] 29 degrees [facility] Atrial fibrillation Electronically Signed On 07-05-2024 12:39:21 EST by Jhonatan Hernandez CV Jhonatan Abdi MD - 07/05/2024 IMPRESSION: Atrial fibrillation Electronically Signed On 07-05-2024 12:39:21 EST by Jhonatan Hernandez [facility] Interpretation and review of laboratory results Abnormal [facility] HbA1c values of 5.7- 6.4 percent indicate an increased risk for developing diabetes mellitus. HbA1c values greater than or equal to 6.5 percent are diagnostic of diabetes mellitus. For diagnosis of diabetes in individuals without unequivocal hyperglycemia, results should be confirmed by repeat testing. [facility] Troponin HS Delta, Baseline to Second -5 ng/L NINF - 2 ng/L [facility] Comment on above: This specimen was co [...] Second 9 ng/L NINF - 14 ng/L [facility] 1. No acute intracranial hemorrhage or territorial [...] Electronically Signed Date/Time: 07/05/2024 5:03 AM EST [facility] Patient Name: MEL CARVER RD : 1940 [id number] Exam Date/Time: 07/05/2024 04:36 Procedure: CT PERFUSION [...] the cervical spine. (more content not included)... [facility] Cory, Cirilo Khalil MD - 07/05/2024 Patient Name: MEL POP : 1940 [facility]#: [id number] Exam Date/Time: 07/05/2024 04:36 Procedure: CT PERFUSION [...] process or suspici (more content not included)... [facility] Interpretation and review of laboratory results Normal [facility] Troponin HS, Serial Baseline 14 ng/L NINF - 14 ng/L [facility] Interpretation and review of laboratory results Normal [facility] Interpretation and review of laboratory results Abnormal [facility] Performed by: [facility], [address] [place] [id number] CLIA ID: [id number] [facility] Radiology Study observation (narrative) [facility] Interpretation and review of laboratory results Abnormal [facility] Performed by: [facility], [address] [place] [address] CLIA ID: [id number] [facility] No Panel InformationOrdered By: Cirilo Ray on 07-05-2024 [facility] Work Phone: PROTIME AND APTTon 4 aPTT Coag (Bld) [Time] 30.4 s Normal 20.0-30.5 [facility] Comment on above: Performed By: #### L [id number] ####Health Information Specialist: VELMA VALADEZ ([phone])[facility] ([facility])[address] [place] [address] INR Coag (PPP) [Relative time] 1.0 {INR} Normal 0.9-1.1 [facility] Comment on above: Result Comment: [...] prevent Myocardial Infarction Performed By: #### L [id number] ####Health Information Specialist: VELMA VALADEZ ([phone])[facility] ([facility])[address] [place] [address] PT Coag (PPP) [Time] 11.7 s Normal 9.0-12.0 [facility] Comment on above: Performed By: #### L [id number] ####Health Information Specialist: VELMA VALADEZ ([phone])[facility] ([facility])[address] Progress Noteon 07-05-2024 Progress Note Normal [facility] CBC panel Auto (Bld)on 07-02 Erythrocyte distribution width (RBC) [Ratio] 16.9 % High 11.5 - 15.0 % [facility] Hematocrit (Bld) [Volume fraction] 29.6 % Low 36.0 - 46.0 % [facility] Hemoglobin (Bld) [Mass/Vol] 9.3 g/dL Low 11.5 - 15.5 g/dL [facility] Interpretation and review of laboratory results Abnormal [facility] MCH (RBC) [Entitic mass] 26.7 pg 26.0 - 34.0 pg [facility] MCHC (RBC) [Mass/Vol] 31.4 g/dL 30.5 - 36.0 g/dL [facility] MCV (RBC) [Entitic vol] 85.1 fL 80.0 - 100.0 fL [facility] Nucleated RBC (Bld) [#/Vol] NINF [facility] Platelet mean volume (Bld) [Entitic vol] 10.2 fL 9.0 - 12.7 fL [facility] Platelets (Bld) [#/Vol] 324 10*3/uL [facility] RBC (Bld) [#/Vol] 3.48 10*6/uL Low 3.90 - 5.2 0 m/uL [facility] WBC (Bld) [#/Vol] 5.12 10*3/uL [facility] Erythrocyte distribution width (RBC) [Ratio] 16.9 % High 11.5-15.0 [facility] Comment on above: Order Comment: Speci men Type: BLOOD SPECIMENOrdering Facility: [facility] Taylor Patiño Address: [address] [place] [address] Performed By: #### 5 8410-2 ####[facility] LABORATORYCLIA [id number] [place] [address] [place] Hematocrit (Bld) [Volume fraction] 29.6 % Low 36.0-46.0 [facility] Comment on above: Order Comment: Speci men Type: BLOOD SPECIMENOrdering Facility: [facility] Address: [address] [place] [address] Performed By: #### 5 8410-2 ####[facility] LABORATORYCLIA [id number] [address] Hemoglobin (Bld) [Mass/Vol] 9.3 g/dL Low 11.5-15.5 [facility] Comment on above: Order Comment: Speci men Type: BLOOD SPECIMENOrdering Facility: [facility] Address: [address] [place] [address] Performed By: #### 5 8410-2 ####[facility] LABORATORYCLIA [id number] [address] [place] MCH (RBC) [Entitic mass] 26.7 pg Normal 26.0-34.0 [facility] Comment on above: Order Comment: Speci men Type: BLOOD SPECIMENOrdering Facility: [facility] Address: [address] [place] [address] Performed By: #### 5 8410-2 ####[facility] LABORATORYCLIA [id number] [address] STATES [facility] MCHC (RBC) [Mass/Vol] 31.4 g/dL Normal 30.5-36.0 [facility] Comment on above: Order Comment: Speci men Type: BLOOD SPECIMENOrdering Facility: [facility] Address: [address] [place] [address] Performed By: #### 5 8410-2 ####[facility] LABORATORYCLIA [id number] [address] STATES [facility] MCV (RBC) [Entitic vol] 85.1 fL Normal 80.0-100.0 [facility] Comment on above: Order Comment: Speci men Type: BLOOD SPECIMENOrdering Facility: [facility] Address: [address] [place] [address] Performed By: #### 5 8410-2 ####[facility] LABORATORYCLIA [id number] [place] [address] [place] Nucleated RBC (Bld) [#/Vol] 10*3/uL Normal <0.01 [facility] Comment on above: Order Comment: Speci men Type: BLOOD SPECIMENOrdering Facility: [facility] Address: [address] [place] [address] Performed By: #### 5 8410-2 ####[facility] LABORATORYCLIA [id number] [place] [address] [place] Platelet mean volume (Bld) [Entitic vol] 10.2 fL Normal 9.0-12.7 [facility] Comment on above: Order Comment: Speci men Type: BLOOD SPECIMENOrdering Facility: [facility] Address: [address] [place] [address] Performed By: #### 5 8410-2 ####[facility] LABORATORYCLIA [id number] [place] [address] [place] Platelets (Bld) [#/Vol] 324 10*3/uL Normal 150-400 [facility] Comment on above: Order Comment: Speci men Type: BLOOD SPECIMENOrdering Facility: [facility] Address: [address] [place] [address] Performed By: #### 5 8410-2 ####[facility] LABORATORYCLIA [id number] [place] [address] [place] RBC (Bld) [#/Vol] 3.48 10*6/uL Low 3.90-5.20 [facility] Comment on above: Order Comment: Speci men Type: BLOOD SPECIMENOrdering Facility: [facility] Address: [address] [place] [address] Performed By: #### 5 8410-2 ####[facility] LABORATORYCLIA [id number] [place] [address] [place] WBC (Bld) [#/Vol] 5.12 10*3/uL Normal 3.70-11.00 [facility] Comment on above: Order Comment: Speci men Type: BLOOD SPECIMENOrdering Facility: [facility] Address: [address] [place] [address] Performed By: #### 5 8410-2 ####MOR[facility] LABORATORYCLIA [id number] [place] [address] [place] CBC panel Auto (Bld)on 06-28 Erythrocyte distribution width (RBC) [Ratio] 16.6 % High 11.5 - 15.0 % [facility] Hematocrit (Bld) [Volume fraction] 28.8 % Low 36.0 - 46.0 % [facility] Hemoglobin (Bld) [Mass/Vol] 9.0 g/dL Low 11.5 - 15.5 g/dL [facility] Interpretation and review of laboratory results Abnormal [facility] MCH (RBC) [Entitic mass] 26.8 pg 26.0 - 34.0 pg [facility] MCHC (RBC) [Mass/Vol] 31.3 g/dL 30.5 - 36.0 g/dL [facility] MCV (RBC) [Entitic vol] 85.7 fL 80.0 - 100.0 fL [facility] Nucleated RBC (Bld) [#/Vol] NINF [facility] Platelet mean volume (Bld) [Entitic vol] 10.5 fL 9.0 - 12.7 fL [facility] Platelets (Bld) [#/Vol] 316 10*3/uL [facility] RBC (Bld) [#/Vol] 3.36 10*6/uL Low 3.90 - 5.2 0 m/uL [facility] WBC (Bld) [#/Vol] 5.27 10*3/uL [facility] Erythrocyte distribution width (RBC) [Ratio] 16.6 % High 11.5-15.0 [facility] Comment on above: Order Comment: Rhina mason Type: BLOOD SPECIMEN Ordering Facility: [facility] Address: [address] [place] [address] Performed By: #### 2 276-4 #### [facility] CLIA [id number] [address] [place] [address] [place] [facility] Hematocrit (Bld) [Volume fraction] 28.8 % Low 36.0-46.0 [facility] Comment on above: Order Comment: Rhina mason Type: BLOOD SPECIMEN Ordering Facility: [facility] Address: [address] [place] [address] Performed By: #### 2 276-4 #### [facility] CLIA [id number] [address] [place] [address] [place] Hemoglobin (Bld) [Mass/Vol] 9.0 g/dL Low 11.5-15.5 [facility] Comment on above: Order Comment: Speci men Type: BLOOD SPECIMEN Ordering Facility: [facility] Address: [address] [place] [address] Performed By: #### 2 276-4 #### [facility] CLIA [id number] [address] [place] [address] [place] MCH (RBC) [Entitic mass] 26.8 pg Normal 26.0-34.0 [facility] Comment on above: Order Comment: Speci men Type: BLOOD SPECIMEN Ordering Facility: [facility] Address: [address] [place] [address] Performed By: #### 2 276-4 #### [facility] CLIA [id number] [address] [place] [address] [place] MCHC (RBC) [Mass/Vol] 31.3 g/dL Normal 30.5-36.0 [facility] Comment on above: Order Comment: Speci men Type: BLOOD SPECIMEN Ordering Facility: [facility] Address: [address] [place] [address] Performed By: #### 2 276-4 #### [facility] CLIA [id number] [address] [place] [address] [place] MCV (RBC) [Entitic vol] 85.7 fL Normal 80.0-100.0 [facility] Comment on above: Order Comment: Speci men Type: BLOOD SPECIMEN Ordering Facility: [facility] Address: [address] [place] [address] Performed By: #### 2 276-4 #### [facility] CLIA [id number] [address] [place] [address] [place] Nucleated RBC (Bld) [#/Vol] 10*3/uL Normal <0.01 [facility] Comment on above: Order Comment: Speci men Type: BLOOD SPECIMEN Ordering Facility: [facility] Address: [address] [place] [address] Performed By: #### 2 276-4 #### [facility] CLIA [id number] [address] [place] [address] [place] Platelet mean volume (Bld) [Entitic vol] 10.5 fL Normal 9.0-12.7 [facility] Comment on above: Order Comment: Speci men Type: BLOOD SPECIMEN Ordering Facility: [facility] Address: [address] [place] [address] Performed By: #### 2 276-4 #### [facility] CLIA [id number] [address] [place] [address] [place] Platelets (Bld) [#/Vol] 316 10*3/uL Normal 150-400 [facility] Comment on above: Order Comment: Speci men Type: BLOOD SPECIMEN Ordering Facility: [facility] Address: [address] [place] [address] Performed By: #### 2 276-4 #### [facility] CLIA [id number] [address] [place] [address] [place] RBC (Bld) [#/Vol] 3.36 10*6/uL Low 3.90-5.20 [facility] Comment on above: Order Comment: Speci men Type: BLOOD SPECIMEN Ordering Facility: [facility] Address: [address] [place] [address] Performed By: #### 2 276-4 #### [facility] CLIA [id number] [address] [place] [address] [place] WBC (Bld) [#/Vol] 5.27 10*3/uL Normal 3.70-11.00 [facility] Comment on above: Order Comment: Speci men Type: BLOOD SPECIMEN Ordering Facility: [facility] Address: [address] [place] [address] Performed By: #### 2 276-4 #### [facility] CLIA [id number] [address] [place] [address] [place] FERRITINon 06-27-2024 Ferritin [Mass/Vol] 67.5 ng/mL 14.7 - 205.1 ng/mL [facility] Ferritin SerPl-mCncon 2023 Ferritin [Mass/Vol] 67.5 ng/mL Normal 14.7-205.1 [facility] Comment on above: Order Comment: Speci men Type: BLOOD SPECIMEN Ordering Facility: [facility] Address: [address] [place] [address] Performed By: #### 2 276-4 #### [facility] CLIA [id number] [address] [place] [address] [place] Ferritin [Mass/Vol]on 2023 Interpretation and review of laboratory results Normal [facility] Iron and Iron binding capaci ty panelon 06-27-2024 Interpretation and review of laboratory results Abnormal [facility] Iron [Mass/Vol] 30 ug/dL Low 41 - 186 ug/dL [facility] Iron binding capacity [Mass/Vol] 298 ug/dL 232 - 386 ug/dL [facility] Iron/TIBC [Molar ratio] 10.1 % Low 15.0 - 57.0 % [facility] Iron [Mass/Vol] 30 ug/dL Low 41-186 [facility] Comment on above: Order Comment: Speci men Type: BLOOD SPECIMEN Ordering Facility: [facility] Address: [address] [place] [address] Performed By: #### 2 276-4 #### [facility] CLIA [id number] [address] [place] [address] [place] Iron binding capacity [Mass/Vol] 298 ug/dL Normal 232-386 [facility] Comment on above: Order Comment: Speci men Type: BLOOD SPECIMEN Ordering Facility: [facility] Address: [address] [place] [address] Performed By: #### 2 276-4 #### [facility] CLIA [id number] [address] [place], [place] [address] [place] Iron/TIBC [Molar ratio] 10.1 % Low 15.0-57.0 [facility] Comment on above: Order Comment: Speci men Type: BLOOD SPECIMEN Ordering Facility: [facility] Taylor Patiño Address: [facility] [place] [address] Performed By: #### 2 276-4 #### [facility] CLIA [id number] [address] [place] [id number] [place] CBC panel Auto (Bld)on 06-25 Erythrocyte distribution width (RBC) [Ratio] 15.9 % High 11.5 - 15.0 % [facility] Hematocrit (Bld) [Volume fraction] 28.7 % Low 36.0 - 46.0 % [facility] Hemoglobin (Bld) [Mass/Vol] 9.0 g/dL Low 11.5 - 15.5 g/dL [facility] Interpretation and review of laboratory results Abnormal [facility] MCH (RBC) [Entitic mass] 26.7 pg 26.0 - 34.0 pg [facility] MCHC (RBC) [Mass/Vol] 31.4 g/dL 30.5 - 36.0 g/dL [facility] MCV (RBC) [Entitic vol] 85.2 fL 80.0 - 100.0 fL [facility] Nucleated RBC (Bld) [#/Vol] NINF [facility] Platelet mean volume (Bld) [Entitic vol] 10.8 fL 9.0 - 12.7 fL [facility] Platelets (Bld) [#/Vol] 315 10*3/uL [facility] RBC (Bld) [#/Vol] 3.37 10*6/uL Low 3.90 - 5.2 0 m/uL [facility] WBC (Bld) [#/Vol] 4.96 10*3/uL [facility] Erythrocyte distribution width (RBC) [Ratio] 15.9 % High 11.5-15.0 [facility] Comment on above: Order Comment: Samiri isabella Type: BLOOD SPECIMEN Ordering Facility: [facility] Address: [address] [place] [address] Performed By: #### 2 4362-6 #### [facility] CLIA [id number] [address] [place] [address] [place] Hematocrit (Bld) [Volume fraction] 28.7 % Low 36.0-46.0 [facility] Comment on above: Order Comment: Speci men Type: BLOOD SPECIMEN Ordering Facility: [facility] Address: [address] [place] [address] Performed By: #### 2 4362-6 #### [facility] CLIA [id number] [address] [place] [address] [place] Hemoglobin (Bld) [Mass/Vol] 9.0 g/dL Low 11.5-15.5 [facility] Comment on above: Order Comment: Speci men Type: BLOOD SPECIMEN Ordering Facility: [facility] Address: [address] [place] [address] Performed By: #### 2 4362-6 #### [facility] CLIA [id number] [address] [place] [address] [place] MCH (RBC) [Entitic mass] 26.7 pg Normal 26.0-34.0 [facility] Comment on above: Order Comment: Speci men Type: BLOOD SPECIMEN Ordering Facility: [facility] Address: [address] [place] [address] Performed By: #### 2 4362-6 #### [facility] CLIA [id number] [address] [place] [address] [place] MCHC (RBC) [Mass/Vol] 31.4 g/dL Normal 30.5-36.0 [facility] Comment on above: Order Comment: Speci men Type: BLOOD SPECIMEN Ordering Facility: [facility] Address: [address] [place] [address] Performed By: #### 2 4362-6 #### [facility] CLIA [id number] [address] [place] [address] [place] MCV (RBC) [Entitic vol] 85.2 fL Normal 80.0-100.0 [facility] Comment on above: Order Comment: Speci men Type: BLOOD SPECIMEN Ordering Facility: [facility] Address: [address] [place] [address] Performed By: #### 2 4362-6 #### [facility] CLIA [id number] [address] [place] [address] [place] Nucleated RBC (Bld) [#/Vol] 10*3/uL Normal <0.01 [facility] Comment on above: Order Comment: Speci men Type: BLOOD SPECIMEN Ordering Facility: [facility] Address: [address] [place] [address] Performed By: #### 2 4362-6 #### [facility] CLIA [id number] [address] [place] [address] [place] Platelet mean volume (Bld) [Entitic vol] 10.8 fL Normal 9.0-12.7 [facility] Comment on above: Order Comment: Speci men Type: BLOOD SPECIMEN Ordering Facility: [facility] Address: [address] [place] [address] Performed By: #### 2 4362-6 #### [facility] CLIA [id number] [address] [place] [address] [place] Platelets (Bld) [#/Vol] 315 10*3/uL Normal 150-400 [facility] Comment on above: Order Comment: Speci men Type: BLOOD SPECIMEN Ordering Facility: [facility] Address: [address] [place] [address] Performed By: #### 2 4362-6 #### [facility] CLIA [id number] [address] [place] [address] [place] RBC (Bld) [#/Vol] 3.37 10*6/uL Low 3.90-5.20 [facility] Comment on above: Order Comment: Speci men Type: BLOOD SPECIMEN Ordering Facility: [facility] Address: [address] [place] [address] Performed By: #### 2 4362-6 #### [facility] CLIA [id number] [address] [place] [address] [place] WBC (Bld) [#/Vol] 4.96 10*3/uL Normal 3.70-11.00 [facility] Comment on above: Order Comment: Speci men Type: BLOOD SPECIMEN Ordering Facility: [facility] Address: [address] [place] [address] Performed By: #### 2 4362-6 #### [facility] CLIA [id number] [address] [place] [address] [place] Basic metabolic 2000 panelon 06-21-2024 Anion gap [Moles/Vol] 12 mmol/L 8 - 15 mmol/L [facility] Calcium [Mass/Vol] 9.3 mg/dL 8.5 - 10. 2 mg/dL [facility] Chloride [Moles/Vol] 108 mmol/L High 98 - 10 7 mmol/L [facility] CO2 [Moles/Vol] 21 mmol/L Low 22 - 30 mmol/L [facility] Creatinine [Mass/Vol] 0.92 mg/dL 0.58 - 0.96 mg/dL [facility] GFR/1.73 sq M.predicted among non-blacks MDRD (S/P/Bld) [Vol rate/Area] 62 mL/min/{1.73_m2} - PINF [facility] Comment on above: Estimated Glomerular Filtration Rate [...] 101 mg/dL High 74 - 99 mg/dL [facility] Comment on above: The [place] Diabete s Association (ADA) provides guidance for [...] Standards of Medical Care in Diabetes 2016, [place] Diabetes [employer]. Diabetes Care. 2016.39(Suppl 1). Interpretation and review of laboratory results Abnormal [facility] Potassium [Moles/Vol] 4.6 mmol/L 3.7 - 5.1 mmol/L [facility] Sodium [Moles/Vol] 141 mmol/L 136 - 144 mmol/L [facility] Urea nitrogen [Mass/Vol] 22 mg/dL High 7 - 21 mg/dL [facility] Anion gap [Moles/Vol] 12 mmol/L Normal 8-15 [facility] Comment on above: Order Comment: Rhina mason Type: BLOOD SPECIMEN Ordering Facility: [facility] Address: [address] [place] [address] Performed By: #### 2 4362-6 #### [facility] CLIA [id number] [address] [place] [address] [place] Calcium [Mass/Vol] 9.3 mg/dL Normal 8.5-10.2 [facility] Comment on above: Order Comment: Rhina mason Type: BLOOD SPECIMEN Ordering Facility: [facility] Address: [address] [place] [address] Performed By: #### 2 4362-6 #### [facility] CLIA [id number] [address] [place] [address] [place] Chloride [Moles/Vol] 108 mmol/L High 98-107 [facility] Comment on above: Order Comment: Rhina mason Type: BLOOD SPECIMEN Ordering Facility: [facility] Address: [address] [place] [address] Performed By: #### 2 4362-6 #### [facility] CLIA [id number] [address] [place] [address] [place] CO2 [Moles/Vol] 21 mmol/L Low 22-30 [facility] Comment on above: Order Comment: Speci men Type: BLOOD SPECIMEN Ordering Facility: [facility] Address: [address] [place] [address] Performed By: #### 2 4362-6 #### [facility] CLIA [id number] [address] [place] [address] [place] Creatinine [Mass/Vol] 0.92 mg/dL Normal 0.58-0.96 [facility] Comment on above: Order Comment: Speci men Type: BLOOD SPECIMEN Ordering Facility: [facility] Address: [address] [place] [address] Performed By: #### 2 4362-6 #### [facility] IA [id number] [address] [place] [address] [place] Creatinine and Glomerular filtration rate.predicted panel (S/P/Bld) 62 mL/min/1.73m??? Normal >=60 [facility] Comment on above: Order Comment: Speci men Type: BLOOD SPECIMEN Ordering Facility: [facility] Address: [address] [place] [address] Result Comment: Isa mated Glomerular Filtration Rate [...] GFR. Performed By: #### 2 4362-6 #### [facility] CLIA [id number] [address] [place] [address] [place] Glucose [Mass/Vol] 101 mg/dL High 74-99 [facility] Comment on above: Order Comment: Speci men Type: BLOOD SPECIMEN Ordering Facility: [facility] Address: [address] [id number] Result Comment: The [place] Diabetes Association (ADA) provides guidance for cutoff [...] Standards of Medical Care in Diabetes 2016, [place] Diabetes Association. Diabetes Care. 2016.39(Suppl 1). Performed By: #### 2 4362-6 #### [facility] CLIA [id number] [address] [place] [address] [place] Potassium [Moles/Vol] 4.6 mmol/L Normal 3.7-5.1 [facility] Comment on above: Order Comment: Speci men Type: BLOOD SPECIMEN Ordering Facility: [facility] Address: [address] [place] [address] Performed By: #### 2 4362-6 #### [facility] CLIA [id number] [address] [place] [address] [place] Sodium [Moles/Vol] 141 mmol/L Normal 136-144 [facility] Comment on above: Order Comment: Speci men Type: BLOOD SPECIMEN Ordering Facility: [facility] Address: [address] [place], [place] [address] Performed By: #### 2 4362-6 #### [facility] CLIA [id number] [address] [place] [address] [place] Urea nitrogen [Mass/Vol] 22 mg/dL High 7-21 [facility] Comment on above: Order Comment: Speci men Type: BLOOD SPECIMEN Ordering Facility: [facility] Address: [address] [place] [address] Performed By: #### 2 4362-6 #### [facility] CLIA [id number] [address] [place] [address] [place] CBC panel Auto (Bld)on 06-21 Erythrocyte distribution width (RBC) [Ratio] 15.8 % High 11.5 - 15.0 % [facility] Hematocrit (Bld) [Volume fraction] 34.2 % Low 36.0 - 46.0 % [facility] Hemoglobin (Bld) [Mass/Vol] 10.6 g/dL Low 11.5 - 15.5 g/dL [facility] Interpretation and review of laboratory results Abnormal [facility] MCH (RBC) [Entitic mass] 26.4 pg 26.0 - 34.0 pg [facility] MCHC (RBC) [Mass/Vol] 31.0 g/dL 30.5 - 36.0 g/dL [facility] MCV (RBC) [Entitic vol] 85.3 fL 80.0 - 100.0 fL [facility] Nucleated RBC (Bld) [#/Vol] NINF [facility] Platelet mean volume (Bld) [Entitic vol] 10.7 fL 9.0 - 12.7 fL [facility] Platelets (Bld) [#/Vol] 300 10*3/uL [facility] RBC (Bld) [#/Vol] 4.01 10*6/uL 3.90 - 5.2 0 m/uL [facility] WBC (Bld) [#/Vol] 5.52 10*3/uL [facility] Erythrocyte distribution width (RBC) [Ratio] 15.8 % High 11.5-15.0 [facility] Comment on above: Order Comment: Speci men Type: BLOOD SPECIMEN Ordering Facility: [facility] Address: [address] [place] [address] Performed By: #### 2 4362-6 #### [facility] CLIA [id number] [address] [place] [address] [place] Hematocrit (Bld) [Volume fraction] 34.2 % Low 36.0-46.0 [facility] Comment on above: Order Comment: Speci men Type: BLOOD SPECIMEN Ordering Facility: [facility] Address: [address] [place] [address] Performed By: #### 2 4362-6 #### [facility] CLIA [id number] [address] [place] [address] [place] Hemoglobin (Bld) [Mass/Vol] 10.6 g/dL Low 11.5-15.5 [facility] Comment on above: Order Comment: Speci men Type: BLOOD SPECIMEN Ordering Facility: [facility] Address: [address] [place] [address] Performed By: #### 2 4362-6 #### [facility] CLIA [id number] [address] [place] [address] [place] MCH (RBC) [Entitic mass] 26.4 pg Normal 26.0-34.0 [facility] Comment on above: Order Comment: Speci men Type: BLOOD SPECIMEN Ordering Facility: [facility] Address: [address] [place] [address] Performed By: #### 2 4362-6 #### [facility] CLIA [id number] [address] [place] [address] [place] MCHC (RBC) [Mass/Vol] 31.0 g/dL Normal 30.5-36.0 [facility] Comment on above: Order Comment: Speci men Type: BLOOD SPECIMEN Ordering Facility: [facility] Address: [address] [place] [address] Performed By: #### 2 4362-6 #### [facility] CLIA [id number] [address] [place] [address] [place] MCV (RBC) [Entitic vol] 85.3 fL Normal 80.0-100.0 [facility] Comment on above: Order Comment: Speci men Type: BLOOD SPECIMEN Ordering Facility: [facility] Address: [address] [place] [address] Performed By: #### 2 4362-6 #### [facility] CLIA [id number] [address] [place] [address] [place] Nucleated RBC (Bld) [#/Vol] 10*3/uL Normal <0.01 [facility] Comment on above: Order Comment: Speci men Type: BLOOD SPECIMEN Ordering Facility: [facility] Address: [address] [place] [address] Performed By: #### 2 4362-6 #### [facility] CLIA [id number] [address] [place] [address] [place] Platelet mean volume (Bld) [Entitic vol] 10.7 fL Normal 9.0-12.7 [facility] Comment on above: Order Comment: Speci men Type: BLOOD SPECIMEN Ordering Facility: [facility] Address: [address] [place] [address] Performed By: #### 2 4362-6 #### [facility] CLIA [id number] [address] [place] [address] [place] Platelets (Bld) [#/Vol] 300 10*3/uL Normal 150-400 [facility] Comment on above: Order Comment: Speci men Type: BLOOD SPECIMEN Ordering Facility: [facility] Address: [address] [place] [address] Performed By: #### 2 4362-6 #### [facility] CLIA [id number] [address] [place] [address] [place] RBC (Bld) [#/Vol] 4.01 10*6/uL Normal 3.90-5.20 [facility] Comment on above: Order Comment: Speci men Type: BLOOD SPECIMEN Ordering Facility: [facility] Address: [address] [place] [address] Performed By: #### 2 4362-6 #### [facility] CLIA [id number] [address] [place] [address] [place] WBC (Bld) [#/Vol] 5.52 10*3/uL Normal 3.70-11.00 [facility] Comment on above: Order Comment: Speci men Type: BLOOD SPECIMEN Ordering Facility: [facility] Address: [address] [place] [address] Performed By: #### 2 4362-6 #### [facility] CLIA [id number] [address] [place] [address] [id number] [place] [address] [place] Basic metabolic 2000 panelon 06-19-2024 Anion gap [Moles/Vol] 10 mmol/L Normal 8-15 [facility] Comment on above: Order Comment: Speci men Type: BLOOD SPECIMEN Ordering Facility: [facility] Address: [address] [place] [address] Performed By: #### 2 4321-2, 34408-9, #### [facility] CLIA [id number] [address] [place] [address] [place] Calcium [Mass/Vol] 8.9 mg/dL Normal 8.5-10.2 [facility] Comment on above: Order Comment: Speci men Type: BLOOD SPECIMEN Ordering Facility: [facility] Address: [address] [place] [address] Performed By: #### 2 4321-2, 39712-8, #### [facility] CLIA [id number] [address] [place] [address] [place] Chloride [Moles/Vol] 109 mmol/L High 98-107 [facility] Comment on above: Order Comment: Speci men Type: BLOOD SPECIMEN Ordering Facility: [facility] Address: [address] [place] [address] Performed By: #### 2 4321-2, 66436-2, #### [facility] CLIA [id number] [address] [place] [address] [place] CO2 [Moles/Vol] 21 mmol/L Low 22-30 [facility] Comment on above: Order Comment: Speci men Type: BLOOD SPECIMEN Ordering Facility: [facility] Address: [address] [place] [address] Performed By: #### 2 4321-2, 43380-6, #### [facility] CLIA [id number] [address] STATES OF [facility] Creatinine [Mass/Vol] 1.04 mg/dL High 0.58-0.96 [facility] Comment on above: Order Comment: Rhina mason Type: BLOOD SPECIMEN Ordering Facility: [facility] Address: [address] [place] [address] Performed By: #### 2 4321-2, 80254-0, #### [facility] CLIA [id number] [address] Creatinine and Glomerular filtration rate.predicted panel (S/P/Bld) 53 mL/min/1.73m??? Low >=60 [facility] Comment on above: Order Comment: Rhina mason Type: BLOOD SPECIMEN Ordering Facility: [facility] Address: [address] [place] [address] Result Comment: Isa mated Glomerular Filtration Rate [...] actual GFR. Performed By: #### 2 4321-2, 57039-3, #### [facility] CLIA [id number] [address] [place] Glucose [Mass/Vol] 103 mg/dL High 74-99 [facility] Comment on above: Order Comment: Rhina mason Type: BLOOD SPECIMEN Ordering Facility: [facility] Address: [address] [place] [address] Result Comment: The [employer] Diabetes Association (ADA) provides guidance for cutoff [...] Standards of Medical Care in Diabetes 2016, [employer] Diabetes [employer]. Diabetes Care. 2016.39(Suppl 1). Performed By: #### 2 4321-2, 24139-5, #### [facility] CLIA [id number] 1 [place] [address] [place] Potassium [Moles/Vol] 4.8 mmol/L Normal 3.7-5.1 [facility] Comment on above: Order Comment: Samiri men Type: BLOOD SPECIMEN Ordering Facility: [facility] Address: [address] [place] [address] Performed By: #### 2 4321-2, 32893-0, #### [facility] CLIA [id number] [address] STATES OF [facility] Sodium [Moles/Vol] 140 mmol/L Normal 136-144 [facility] Comment on above: Order Comment: Rhina mason Type: BLOOD SPECIMEN Ordering Facility: [facility] Address: [address] [place] [address] Performed By: #### 2 4321-2, 21324-6, #### [facility] CLIA [id number] 1 [place] [address] [place] Urea nitrogen [Mass/Vol] 25 mg/dL High 7-21 [facility] Comment on above: Order Comment: Speci men Type: BLOOD SPECIMEN Ordering Facility: [facility] Address: [address] [place] [address] Performed By: #### 2 4321-2, 37290-1, #### [facility] CLIA [id number] [address] [place] CBC panel Auto (Bld)on 06-19 Erythrocyte distribution width (RBC) [Ratio] 15.9 % High 11.5-15.0 [facility] Comment on above: Order Comment: Speci men Type: BLOOD SPECIMEN Ordering Facility: [facility] Address: [address] [place] [address] Performed By: #### 2 4321-2, 10989-1, #### [facility] CLIA [id number] [address] STATES OF [facility] Hematocrit (Bld) [Volume fraction] 30.6 % Low 36.0-46.0 [facility] Comment on above: Order Comment: Speci men Type: BLOOD SPECIMEN Ordering Facility: [facility] Address: [address] [place] [address] Performed By: #### 2 4321-2, 19986-6, #### [facility] CLIA [id number] [address] STATES OF [facility] Hemoglobin (Bld) [Mass/Vol] 9.5 g/dL Low 11.5-15.5 [facility] Comment on above: Order Comment: Speci men Type: BLOOD SPECIMEN Ordering Facility: [facility] Address: [address] [place] [address] Performed By: #### 2 4321-2, 30665-4, #### [facility] CLIA [id number] [address] [place] MCH (RBC) [Entitic mass] 26.5 pg Normal 26.0-34.0 [facility] Comment on above: Order Comment: Speci men Type: BLOOD SPECIMEN Ordering Facility: [facility] Address: [address] [place] [address] Performed By: #### 2 4321-2, 54114-7, #### [facility] CLIA [id number] [address] [place] MCHC (RBC) [Mass/Vol] 31.0 g/dL Normal 30.5-36.0 [facility] Comment on above: Order Comment: Speci men Type: BLOOD SPECIMEN Ordering Facility: [facility] Address: [address] [place] [address] Performed By: #### 2 4321-2, 89263-6, #### [employer] [facility] CLIA [id number] [address] [place] MCV (RBC) [Entitic vol] 85.5 fL Normal 80.0-100.0 [facility] Comment on above: Order Comment: Speci men Type: BLOOD SPECIMEN Ordering Facility: [facility] Address: [address] [place] [address] Performed By: #### 2 1-2, 49778-4, #### [facility] CLIA [id number] [address] [place] Nucleated RBC (Bld) [#/Vol] 10*3/uL Normal <0.01 [facility] Comment on above: Order Comment: Speci men Type: BLOOD SPECIMEN Ordering Facility: [facility] Address: [address] [place] [address] Performed By: #### 2 1-2, 20261-7, #### [facility] CLIA [id number] [address] [place] Platelet mean volume (Bld) [Entitic vol] 10.4 fL Normal 9.0-12.7 [facility] Comment on above: Order Comment: Speci men Type: BLOOD SPECIMEN Ordering Facility: [facility] Address: [address] [place] [address] Performed By: #### 2 4321-2, 89167-2, #### [employer] [facility] CLIA [id number] [address] [place] Platelets (Bld) [#/Vol] 245 10*3/uL Normal 150-400 [facility] Comment on above: Order Comment: Speci men Type: BLOOD SPECIMEN Ordering Facility: [facility] Address: [address] [place] [address] Performed By: #### 2 4321-2, 31008-6, #### [facility] CLIA [id number] [address] OF [facility] RBC (Bld) [#/Vol] 3.58 10*6/uL Low 3.90-5.20 [facility] Comment on above: Order Comment: Speci men Type: BLOOD SPECIMEN Ordering Facility: [facility] Address: [address] [place], [place] [address] Performed By: #### 2 4321-2, 68083-1, #### [facility] CLIA [id number] [address] [place] [id number] [facility] WBC (Bld) [#/Vol] 4.67 10*3/uL Normal 3.70-11.00 [facility] Comment on above: Order Comment: Speci men Type: BLOOD SPECIMEN Ordering Facility: [facility] Address: [address] [place] [address] Performed By: #### 2 4321-2, 84739-7, #### [facility] CLIA [id number] [address] CNDSon 06-19-2024 CNDS HNO ID: [id number] Author: DON DEWARDS DO Service: Hospital Medicine [...] eliquis. She was seen by therapy and correction facility was recommended. He slowly was improving. She was discharged to correction facility in stable condition. OTHER PROBLEMS/DIAGNOSIS: Principal [...] call for appointment?: Yes Jared Evans MD [phone] [address] [place] [address] PCP Requested Referral Follow-Up Appointment When: In 2 weeks Patient/Parents to call for appointment?: Yes Hermila Padilla MD [phone] [place] [address] [facility] [address] PCP Requested Referral Follow-Up Appointment For hydronephrosis and renal lesion When: In 2 weeks Patient/Parents to call for appointment?: Yes Mikhail Vuong Jr., MD [phone] [address] [place] [address] PCP Requested Referral Follow-Up Appointment With: neurology When: In 4 weeks Patient/Parents to call for appointment?: Yes Additional Provider to Provider Information: Treatment Team: Attending Provider: Don Edwards DO Consulting: Pratibha Logan MD Consulting: Torsten Silva MD Primary Service: BLAS ALVAREZ [facility] Critical Issues: SPECIALIST FOLLOW-UP: urology, cardiology, neurology LABS AND PROCEDURES PENDING AT DISCHARGE: No pending results. FOLLOW-UP APPOINTMENTS ALREADY SCHEDULED WITH A [facility] PROVIDER: No future appointments. Discharge Information Row Name ED to Hosp-Admission (Current) from 06/10/2024 in [place] [address] NEURO/CARD Rehab Facility Agency [facility] ALLERGIES Allergen Reactions Percocet [Oxycodone* Itching DISCHARGE MEDICA (more content not included)... Normal [facility] Basic metabolic 2000 panelon 06-18-2024 Anion gap [Moles/Vol] 10 mmol/L Normal 8-15 [facility] Comment on above: Order Comment: Rhina mason Type: BLOOD SPECIMEN Ordering Facility: [facility] Address: [address] [place] [address] Performed By: #### 2 4321-2, 76781-7, 39084-5 #### [facility] CLIA [id number] [address] [place] [id number] [place] Calcium [Mass/Vol] 8.9 mg/dL Normal 8.5-10.2 [facility] Comment on above: Order Comment: Rhina masno Type: BLOOD SPECIMEN Ordering Facility: [facility] Address: [address] [place] [address] Performed By: #### 2 4321-2, 37612-0, #### [facility] CLIA [id number] 1 [place] [address] [place] Chloride [Moles/Vol] 110 mmol/L High 98-107 [facility] Comment on above: Order Comment: Speci men Type: BLOOD SPECIMEN Ordering Facility: [facility] Address: [address] [place] [address] Performed By: #### 2 4321-2, 45341-5, #### [facility] CLIA [id number] 1 [place] [address] [place] CO2 [Moles/Vol] 21 mmol/L Low 22-30 [facility] Comment on above: Order Comment: Speci men Type: BLOOD SPECIMEN Ordering Facility: [facility] Address: [address] [place] [address] Performed By: #### 2 4321-2, 54652-8, #### [facility] CLIA [id number] [address] [place] Creatinine [Mass/Vol] 0.96 mg/dL Normal 0.58-0.96 [facility] Comment on above: Order Comment: Speci men Type: BLOOD SPECIMEN Ordering Facility: [facility] Address: [address] [place] [address] Performed By: #### 2 4321-2, 71461-1, #### [facility] CLIA [id number] [address] [place] Creatinine and Glomerular filtration rate.predicted panel (S/P/Bld) 58 mL/min/1.73m??? Low >=60 [facility] Comment on above: Order Comment: Speci men Type: BLOOD SPECIMEN Ordering Facility: [facility] Address: [address] [place] [address] Result Comment: Isa mated Glomerular Filtration Rate [...] actual GFR. Performed By: #### 2 4321-2, 91942-3, #### [facility] CLIA [id number] 1 [place] [address] [place] Glucose [Mass/Vol] 112 mg/dL High 74-99 [facility] Comment on above: Order Comment: Rhina mason Type: BLOOD SPECIMEN Ordering Facility: [facility] Address: [address] [place] [address] Result Comment: The [place] Diabetes Association (ADA) provides guidance for cutoff [...] Standards of Medical Care in Diabetes 2016, [place] Diabetes [employer]. Diabetes Care. 2016.39(Suppl 1). Performed By: #### 2 4321-2, 21338-8, #### [facility] CLIA [id number] 1 [place] [address] [place] Potassium [Moles/Vol] 4.4 mmol/L Normal 3.7-5.1 [facility] Comment on above: Order Comment: Rhina mason Type: BLOOD SPECIMEN Ordering Facility: [facility] Address: [address] [place] [address] Performed By: #### 2 4321-2, 93445-2, #### [facility] CLIA [id number] 1 [place] [address] [place] Sodium [Moles/Vol] 141 mmol/L Normal 136-144 [facility] Comment on above: Order Comment: Speci men Type: BLOOD SPECIMEN Ordering Facility: [facility] Address: [address] [place] [address] Performed By: #### 2 4321-2, 65093-5, 17383-1 #### [facility] CLIA [id number] [address] [place] Urea nitrogen [Mass/Vol] 22 mg/dL High 7-21 [facility] Comment on above: Order Comment: Speci men Type: BLOOD SPECIMEN Ordering Facility: [facility] Address: [address] [place] [address] Performed By: #### 2 4321-2, 38008-1, #### [facility] CLIA [id number] [address] [place] CBC panel Auto (Bld)on 06-18 Erythrocyte distribution width (RBC) [Ratio] 15.9 % High 11.5-15.0 [facility] Comment on above: Order Comment: Speci men Type: BLOOD SPECIMENOrdering Facility: [facility] Address: [address] [place] [address] Performed By: #### 5 8410-2 ####[facility] [id number] [address] [place] Hematocrit (Bld) [Volume fraction] 34.3 % Low 36.0-46.0 [facility] Comment on above: Order Comment: Speci men Type: BLOOD SPECIMENOrdering Facility: [facility] Address: [address] [place] [address] Performed By: #### 5 8410-2 ####[facility] [id number] [address] [place] Hemoglobin (Bld) [Mass/Vol] 10.7 g/dL Low 11.5-15.5 [facility] Comment on above: Order Comment: Speci men Type: BLOOD SPECIMENOrdering Facility: [facility] Address: [address] [place] [address] Performed By: #### 5 8410-2 ####[facility] [id number] [address] MCH (RBC) [Entitic mass] 26.7 pg Normal 26.0-34.0 [facility] Comment on above: Order Comment: Speci men Type: BLOOD SPECIMENOrdering Facility: [facility] Address: [address] [place] [address] Performed By: #### 5 8410-2 ####[facility] [id number] [address] MCHC (RBC) [Mass/Vol] 31.2 g/dL Normal 30.5-36.0 [facility] Comment on above: Order Comment: Speci men Type: BLOOD SPECIMENOrdering Facility: [facility] Address: [address] [place] [address] Performed By: #### 5 8410-2 ####[facility]IA [id number] [address] MCV (RBC) [Entitic vol] 85.5 fL Normal 80.0-100.0 [facility] Comment on above: Order Comment: Speci men Type: BLOOD SPECIMENOrdering Facility: [facility] Address: [address] [place] [address] Performed By: #### 5 8410-2 ####[facility]IA [id number] [address] Nucleated RBC (Bld) [#/Vol] 10*3/uL Normal <0.01 [facility] Comment on above: Order Comment: Speci men Type: BLOOD SPECIMENOrdering Facility: [facility] Address: [address] [place] [address] Performed By: #### 5 8410-2 ####[facility]ORYCLIA [id number] [address] Platelet mean volume (Bld) [Entitic vol] 10.0 fL Normal 9.0-12.7 [facility] Comment on above: Order Comment: Speci men Type: BLOOD SPECIMENOrdering Facility: [facility] Address: [address] [place] [address] Performed By: #### 5 8410-2 ####[facility]ORY[facility]IA [id number] [address] [place] Platelets (Bld) [#/Vol] 273 10*3/uL Normal 150-400 [facility] Comment on above: Order Comment: Speci men Type: BLOOD SPECIMENOrdering Facility: [facility] Address: [address] [place] [address] Performed By: #### 5 8410-2 ####[facility]ORYCLIA [id number] [address] [place] RBC (Bld) [#/Vol] 4.01 10*6/uL Normal 3.90-5.20 [facility] Comment on above: Order Comment: Speci men Type: BLOOD SPECIMENOrdering Facility: [facility] Address: [address] [place] [address] Performed By: #### 5 8410-2 ####[facility]ORYCLIA [id number] [address] OF [facility] WBC (Bld) [#/Vol] 5.29 10*3/uL Normal 3.70-11.00 [facility] Comment on above: Order Comment: Speci men Type: BLOOD SPECIMENOrdering Facility: [facility] Address: [address] [place] [address] Performed By: #### 5 8410-2 ####[facility]ORYCLIA [id number] [address] Hepatic function 2000 panelo n 06-18-2024 Albumin [Mass/Vol] 3.5 g/dL Low 3.9-4.9 [facility] Comment on above: Order Comment: Speci men Type: BLOOD SPECIMEN Ordering Facility: [facility] Address: [address] [place] [address] Performed By: #### 2 4321-2, 41449-8, 04133-0 #### [facility] CLIA [id number] [address] [place] ALP [Catalytic activity/Vol] 80 U/L Normal 34-123 [facility] Comment on above: Order Comment: Speci men Type: BLOOD SPECIMEN Ordering Facility: [facility] Address: [address] [place] [address] Performed By: #### 2 4321-2, 73541-5, #### [facility] CLIA [id number] [address] [place] ALT With P-5'-P [Catalytic activity/Vol] 16 U/L Normal 7-38 [facility] Comment on above: Order Comment: Speci men Type: BLOOD SPECIMEN Ordering Facility: [facility] Address: [address] [place] [address] Performed By: #### 2 4321-2, 84154-4, #### [facility] CLIA [id number] [address] OF [facility] AST With P-5'-P [Catalytic activity/Vol] 20 U/L Normal 13-35 [facility] Comment on above: Order Comment: Speci men Type: BLOOD SPECIMEN Ordering Facility: [facility] Address: [address] [place] [address] Performed By: #### 2 4321-2, 08805-0, #### [facility] CLIA [id number] [address] [place] Bilirubin [Mass/Vol] 0.3 mg/dL Normal 0.2-1.3 [facility] Comment on above: Order Comment: Speci men Type: BLOOD SPECIMEN Ordering Facility: [facility] Address: [address] [place] [address] Performed By: #### 2 4321-2, 03194-2, #### [facility] CLIA [id number] [address] [place] Bilirubin.conjugated [Mass/Vol] mg/dL Normal <0.2 [facility] Comment on above: Order Comment: Speci men Type: BLOOD SPECIMEN Ordering Facility: [facility] Address: [address] [place] [address] Performed By: #### 2 4321-2, 78532-7, #### [facility] CLIA [id number] 1 [place] [address] [place] Protein [Mass/Vol] 6.0 g/dL Low 6.3-8.0 [facility] Comment on above: Order Comment: Speci men Type: BLOOD SPECIMEN Ordering Facility: [facility] Address: [address] [place] [address] Performed By: #### 2 4321-2, 06236-9, #### [facility] CLIA [id number] [address] [place] Magnesium SerPl-ncon 06-18 Magnesium [Mass/Vol] 1.9 mg/dL Normal 1.7-2.3 [facility] Comment on above: Order Comment: Speci men Type: BLOOD SPECIMEN Ordering Facility: [facility] Address: [address] [place] [address] Performed By: #### 2 4321-2, 89666-7, #### [facility] CLIA [id number] 1 [place] [address] [place] NUTRITIONon 06-18-2024 NUTRITION HNO ID: [id number] Author: NELSON AVILA [address] Service: Nutrition Therapy [...] Diet Orders (From admission, onward) Start Ordered 06/13/24929 DIET REGULAR START NOW 06/13/24 09 Anthropometrics: Height: 162.6 cm (5' 4") Weight: 69 kg (152 lb 1.9 oz) Usual Weight: (145-155 lbs) Usual Weight Obtained From: Patient Weight Change: 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(s) (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; 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) MNT Billing: $ Initial Assessment: 1-15 minutes SIGNATURE: Nelson [address] RD PATIENT NAME: Mel Castillo DATE: June 18, 2024 TIME: 11:18 AM Normal [facility] THERAPY NTon 06-18-2024 THERAPY NT HNO ID: [id number] Author: SELENA BARR, PT Service: Physical Therapy Author Type: Physical Therapist Type: Therapy (PT/OT/Speech/Resp) Filed: 06/18/2024 12:53 Note Text: Physical Therapy Treatment Summary SERVICE DATE: 06/18/2024 SERVICE TIME: 1056 to 1129 ROOM: [place] [address] PT 6 Clicks Score: 16 DISCHARGE RECOMMENDATIONS Acute Rehab Recommended Discharge Disposition Comments: Very unsteady and has poor perception of vertical mid line balance. Pt is a high risk of falls. Recommend Acute rehab at d/ Recommended Discharge Disposition Due to: Patient requires [...] Lack of coordination-other TREATMENT INTERVENTIONS Therapeutic Activity (89635) Therapeutic Activity (42570) Treatment Minutes: 25 $ Therapeutic Activity (98499) Billed Units: 2 units Timed Code Treatment [...] (more content not included)... Normal [facility] THERAPY NT HNO ID: [id number] Author: ULI JEFFERSON OTR/L Service: Occupational Therapy Author Type: Occupational Therapist Type: Therapy (PT/OT/Speech/Resp) Filed: 06/18/2024 13:34 Note Text: Occupational Therapy Treatment Summary SERVICE DATE: 06/18/2024 SERVICE TIME: 1130 to 1154 ROOM: [id number] OT 6 Clicks Score: 15 DISCHARGE RECOMMENDATIONS [...] General symptoms and signs-other TREATMENT INTERVENTIONS Self Halfway Management (86828), Cognitive Training (79102 and 16011) Timed Code Treatment (minutes): 24 Skilled Treatment Time (minutes): 24 Self Halfway Management (14663) Treatment Minutes: 11 $ Self Halfway Management (60604) Billed Units: 1 unit Minimal assist with meal set-up. Cueing for physical assist with maintaining functional grasp on packaging to tear open. Pt demonstrated impaired hand-eye coordination/visual spatial awareness with bringing food to mouth. Provided further cueing and tactile awareness/sequencing to maximize ease with self feeding. Cognitive Training First 15 Minutes (51190) : 13 $ Cognitive Training First 15 Minutes (10126) Billed Units: 1 unit Facilitated completion of [facility] Mental Examination (UMS) to screen performance with [...] Occupational Therapy, Safety/Judgment, Sitting Balance to Improve [place] with ADLs/Self-Care, Cognitive Skills, Command Following, Expected Functional Level, Feeding Tasks, Low Vision Strategies, Positioning, Visual Scanning/Attention Activities THERAPEUTIC SKILLS USED Activity Dosing, Cues for (more content not included)... Normal [facility] CBC panel Auto (Bld)on 06-17 Erythrocyte distribution width (RBC) [Ratio] 15.7 % High 11.5-15.0 [facility] Comment on above: Order Comment: Rhina mason Type: BLOOD SPECIMEN Ordering Facility: [facility] Address: [address] [place] [address] Performed By: #### 2 4321-2, 30211-6, #### [facility] CLIA [id number] [address] [place] [address] [place] Hematocrit (Bld) [Volume fraction] 35.1 % Low 36.0-46.0 [facility] Comment on above: Order Comment: Rhina mason Type: BLOOD SPECIMEN Ordering Facility: [facility] Address: [address] [place] [address] Performed By: #### 2 4321-2, 51731-2, #### [facility] CLIA [id number] [address] [place] [address] [place] Hemoglobin (Bld) [Mass/Vol] 11.0 g/dL Low 11.5-15.5 [facility] Comment on above: Order Comment: Rhina mason Type: BLOOD SPECIMEN Ordering Facility: [facility] Address: [address] [place] [address] Performed By: #### 2 4321-2, 74906-5, #### [facility] CLIA [id number] [address] MCH (RBC) [Entitic mass] 26.4 pg Normal 26.0-34.0 [facility] Comment on above: Order Comment: Speci men Type: BLOOD SPECIMEN Ordering Facility: [facility] Address: [address] [place] [address] Performed By: #### 2 4320-2, 05730-4, #### [facility] CLIA [id number] [address] MCHC (RBC) [Mass/Vol] 31.3 g/dL Normal 30.5-36.0 [facility] Comment on above: Order Comment: Speci men Type: BLOOD SPECIMEN Ordering Facility: [facility] Address: [address] [place] [address] Performed By: #### 2 4320-2, 36132-2, #### [facility] CLIA [id number] [address] MCV (RBC) [Entitic vol] 84.4 fL Normal 80.0-100.0 [facility] Comment on above: Order Comment: Speci men Type: BLOOD SPECIMEN Ordering Facility: [facility] Address: [address] [place] [address] Performed By: #### 2 4320-2, 25632-2, #### [facility] CLIA [id number] [address] Nucleated RBC (Bld) [#/Vol] 10*3/uL Normal <0.01 [facility] Comment on above: Order Comment: Speci men Type: BLOOD SPECIMEN Ordering Facility: [facility] Address: [address] [place] [address] Performed By: #### 2 4320-2, 05781-2, #### [facility] CLIA [id number] [address] [place] [address] [place] Platelet mean volume (Bld) [Entitic vol] 10.1 fL Normal 9.0-12.7 [facility] Comment on above: Order Comment: Speci men Type: BLOOD SPECIMEN Ordering Facility: [facility] Address: [address] [place] [address] Performed By: #### 2 4321-2, 21019-8, #### [facility] CLIA [id number] [address] [place] Platelets (Bld) [#/Vol] 294 10*3/uL Normal 150-400 [facility] Comment on above: Order Comment: Speci men Type: BLOOD SPECIMEN Ordering Facility: [facility] Address: [address] [place] [address] Performed By: #### 2 4321-2, 18266-5, #### [facility] CLIA [id number] [address] STATES OF [facility] RBC (Bld) [#/Vol] 4.16 10*6/uL Normal 3.90-5.20 [facility] Comment on above: Order Comment: Speci men Type: BLOOD SPECIMEN Ordering Facility: [facility] Address: [address] [place] [address] Performed By: #### 2 4321-2, 06445-9, #### [facility] CLIA [id number] [address] [place] WBC (Bld) [#/Vol] 5.63 10*3/uL Normal 3.70-11.00 [facility] Comment on above: Order Comment: Speci men Type: BLOOD SPECIMEN Ordering Facility: [facility] Address: [address] [place] [address] Performed By: #### 2 4321-2, 73260-5, #### [facility] CLIA [id number] [address] [place] CBC panel Auto (Bld)on 06-16 Erythrocyte distribution width (RBC) [Ratio] 15.4 % High 11.5-15.0 [facility] Comment on above: Order Comment: Speci men Type: BLOOD SPECIMEN Ordering Facility: [facility] Address: [address] [place] [address] Performed By: #### 2 4321-2, 36056-3, #### [facility] CLIA [id number] [address] OF [facility] Hematocrit (Bld) [Volume fraction] 34.9 % Low 36.0-46.0 [facility] Comment on above: Order Comment: Speci men Type: BLOOD SPECIMEN Ordering Facility: [facility] Address: [address] [place] [address] Performed By: #### 2 4321-2, 38738-2, #### [facility] CLIA [id number] [address] STATES OF [facility] Hemoglobin (Bld) [Mass/Vol] 10.9 g/dL Low 11.5-15.5 [facility] Comment on above: Order Comment: Speci men Type: BLOOD SPECIMEN Ordering Facility: [facility] Address: [address] [place] [address] Performed By: #### 2 4321-2, 00748-3, #### [facility] CLIA [id number] [address] STATES OF [facility] MCH (RBC) [Entitic mass] 26.4 pg Normal 26.0-34.0 [facility] Comment on above: Order Comment: Speci men Type: BLOOD SPECIMEN Ordering Facility: [facility] Address: [address] [place] [address] Performed By: #### 2 4321-2, 93885-7, #### [facility] CLIA [id number] [address] STATES OF [facility] MCHC (RBC) [Mass/Vol] 31.2 g/dL Normal 30.5-36.0 [facility] Comment on above: Order Comment: Speci men Type: BLOOD SPECIMEN Ordering Facility: [facility] Address: [address] [place] [address] Performed By: #### 2 4321-2, 78909-5, #### [facility] CLIA [id number] [address] MCV (RBC) [Entitic vol] 84.5 fL Normal 80.0-100.0 [facility] Comment on above: Order Comment: Speci men Type: BLOOD SPECIMEN Ordering Facility: [facility] Address: [address] [place] [address] Performed By: #### 2 4321-2, 13277-0, #### [facility] CLIA [id number] [address] [place] Nucleated RBC (Bld) [#/Vol] 10*3/uL Normal <0.01 [facility] Comment on above: Order Comment: Speci men Type: BLOOD SPECIMEN Ordering Facility: [facility] Address: [address] [place] [address] Performed By: #### 2 1-2, 67433-1, #### [facility] CLIA [id number] [address] Platelet mean volume (Bld) [Entitic vol] 9.8 fL Normal 9.0-12.7 [facility] Comment on above: Order Comment: Speci men Type: BLOOD SPECIMEN Ordering Facility: [facility] Address: [address] [place] [address] Performed By: #### 2 4321-2, 90757-6, #### [facility] CLIA [id number] [address] Platelets (Bld) [#/Vol] 274 10*3/uL Normal 150-400 [facility] Comment on above: Order Comment: Speci men Type: BLOOD SPECIMEN Ordering Facility: [facility] Address: [address] [place] [address] Performed By: #### 2 4321-2, 99546-9, #### [facility] CLIA [id number] [address] [place] RBC (Bld) [#/Vol] 4.13 10*6/uL Normal 3.90-5.20 [facility] Comment on above: Order Comment: Speci men Type: BLOOD SPECIMEN Ordering Facility: [facility] Address: [address] [place] [address] Performed By: #### 2 4321-2, 08054-2, #### [facility] CLIA [id number] [address] [place] WBC (Bld) [#/Vol] 6.06 10*3/uL Normal 3.70-11.00 [facility] Comment on above: Order Comment: Speci men Type: BLOOD SPECIMEN Ordering Facility: [facility] Address: [address] [place] [address] Performed By: #### 2 4321-2, 99640-5, #### [facility] CLIA [id number] [address] OF [facility] CBC panel Auto (Bld)on 06-15 Erythrocyte distribution width (RBC) [Ratio] 15.4 % High 11.5-15.0 [facility] Comment on above: Order Comment: Speci men Type: BLOOD SPECIMEN Ordering Facility: [facility] Address: [address] [place] [address] Performed By: #### 2 4321-2, 32310-7, #### [facility] CLIA [id number] [address] OF [facility] Hematocrit (Bld) [Volume fraction] 33.9 % Low 36.0-46.0 [facility] Comment on above: Order Comment: Speci men Type: BLOOD SPECIMEN Ordering Facility: [facility] Address: [address] [place] [address] Performed By: #### 2 4321-2, 28266-7, #### [facility] CLIA [id number] [address] OF [facility] Hemoglobin (Bld) [Mass/Vol] 10.6 g/dL Low 11.5-15.5 [facility] Comment on above: Order Comment: Speci men Type: BLOOD SPECIMEN Ordering Facility: [facility] Address: [address] [place] [address] Performed By: #### 2 4321-2, 88496-3, #### [facility] CLIA [id number] [address] MCH (RBC) [Entitic mass] 26.2 pg Normal 26.0-34.0 [facility] Comment on above: Order Comment: Speci men Type: BLOOD SPECIMEN Ordering Facility: [facility] Address: [address] [place] [address] Performed By: #### 2 4321-2, 56418-8, #### [facility] CLIA [id number] [address] MCHC (RBC) [Mass/Vol] 31.3 g/dL Normal 30.5-36.0 [facility] Comment on above: Order Comment: Speci men Type: BLOOD SPECIMEN Ordering Facility: [facility] Address: [address] [place] [address] Performed By: #### 2 4321-2, 63502-0, #### [facility] CLIA [id number] [address] MCV (RBC) [Entitic vol] 83.9 fL Normal 80.0-100.0 [facility] Comment on above: Order Comment: Speci men Type: BLOOD SPECIMEN Ordering Facility: [facility] Address: [address] [place] [address] Performed By: #### 2 4321-2, 12039-5, #### [facility] CLIA [id number] [address] Nucleated RBC (Bld) [#/Vol] 10*3/uL Normal <0.01 [facility] Comment on above: Order Comment: Speci men Type: BLOOD SPECIMEN Ordering Facility: [facility] Address: [address] [place] [address] Performed By: #### 2 4321-2, 72046-0, #### [facility] CLIA [id number] [address] [place] Platelet mean volume (Bld) [Entitic vol] 9.9 fL Normal 9.0-12.7 [facility] Comment on above: Order Comment: Speci men Type: BLOOD SPECIMEN Ordering Facility: [facility] Address: [address] [place] [address] Performed By: #### 2 4321-2, 82707-0, #### [facility] CLIA [id number] [address] [place] Platelets (Bld) [#/Vol] 280 10*3/uL Normal 150-400 [facility] Comment on above: Order Comment: Speci men Type: BLOOD SPECIMEN Ordering Facility: [facility] Address: [address] [place] [address] Performed By: #### 2 4320-2, 55315-2, #### [facility] CLIA [id number] [address] [place] RBC (Bld) [#/Vol] 4.04 10*6/uL Normal 3.90-5.20 [facility] Comment on above: Order Comment: Speci men Type: BLOOD SPECIMEN Ordering Facility: [facility] Address: [address] [place] [address] Performed By: #### 2 4321-2, 47311-1, #### [facility] CLIA [id number] [address] [place] WBC (Bld) [#/Vol] 5.80 10*3/uL Normal 3.70-11.00 [facility] Comment on above: Order Comment: Speci men Type: BLOOD SPECIMEN Ordering Facility: [facility] Address: [address] [place] [address] [place] [id number] Performed By: #### 2 4321-2, 06314-9, 27966-1 #### [facility] [id number] [address] [place] [id number] [place] THERAPY NTon 06-15-2024 THERAPY NT HNO ID: [id number] Author: MEHREEN MANCERA, PT Service: Physical Therapy Author Type: Physical Therapist Type: Therapy (PT/OT/Speech/Resp) Filed: 06/15/2024 16:13 Note Text: Physical Therapy Treatment Summary SERVICE DATE: 06/15/2024 SERVICE TIME: 1518 to 1547 ROOM: [place] [address] PT 6 Clicks Score: 13 DISCHARGE RECOMMENDATIONS [...] Lack of coordination-other TREATMENT INTERVENTIONS Therapeutic Activity (40081), Neuromuscular Reeducation (93433) Timed Code Treatment (minutes): 29 Skilled Treatment Time (minutes): 29 Therapeutic Activity (86213) Treatment Minutes: 10 $ Therapeutic Activity (28897) Billed Units: 1 unit Neuromuscular Reeducation (32930) Treatment Minutes: 19 $ Neuromuscular Reeducation (91596) Billed Units: 1 unit Sitting balance and [...] (more content not included)... Normal [facility] CBC panel Auto (Bld)on 06-14 Erythrocyte distribution width (RBC) [Ratio] 15.5 % High 11.5-15.0 [facility] Comment on above: Order Comment: Speci men Type: BLOOD SPECIMENOrdering Facility: [facility] Address: [address] [place] [address] Performed By: #### 5 8410-2 ####[facility] [id number] [address] [place] Hematocrit (Bld) [Volume fraction] 34.8 % Low 36.0-46.0 [facility] Comment on above: Order Comment: Speci men Type: BLOOD SPECIMENOrdering Facility: [facility] Address: [address] [place] [address] Performed By: #### 5 8410-2 ####[facility] [id number] [address] [place] Hemoglobin (Bld) [Mass/Vol] 11.0 g/dL Low 11.5-15.5 [facility] Comment on above: Order Comment: Speci men Type: BLOOD SPECIMENOrdering Facility: [facility] Address: [address] [place] [address] Performed By: #### 5 8410-2 ####[facility] [id number] [address] [place] MCH (RBC) [Entitic mass] 26.6 pg Normal 26.0-34.0 [facility] Comment on above: Order Comment: Speci men Type: BLOOD SPECIMENOrdering Facility: [facility] Address: [address] [place] [address] Performed By: #### 5 8410-2 ####[facility]IA [id number] [address] MCHC (RBC) [Mass/Vol] 31.6 g/dL Normal 30.5-36.0 [facility] Comment on above: Order Comment: Speci men Type: BLOOD SPECIMENOrdering Facility: [facility] Address: [address] [place] [address] Performed By: #### 5 8410-2 ####[facility]ORYCLIA [id number] [address] [place] MCV (RBC) [Entitic vol] 84.3 fL Normal 80.0-100.0 [facility] Comment on above: Order Comment: Speci men Type: BLOOD SPECIMENOrdering Facility: [facility] Address: [address] [place] [address] Performed By: #### 5 8410-2 ####[facility]ORYCLIA [id number] [address] [place] Nucleated RBC (Bld) [#/Vol] 10*3/uL Normal <0.01 [facility] Comment on above: Order Comment: Speci men Type: BLOOD SPECIMENOrdering Facility: [facility] Address: [address] [place] [address] Performed By: #### 5 8410-2 ####[facility]ORYCLIA [id number] [address] [place] Platelet mean volume (Bld) [Entitic vol] 9.7 fL Normal 9.0-12.7 [facility] Comment on above: Order Comment: Speci men Type: BLOOD SPECIMENOrdering Facility: [facility] Address: [address] [place] [address] Performed By: #### 5 8410-2 ####[facility]ORY[facility]IA [id number] [address] [place] Platelets (Bld) [#/Vol] 278 10*3/uL Normal 150-400 [facility] Comment on above: Order Comment: Speci men Type: BLOOD SPECIMENOrdering Facility: [facility] Address: [address] [place] [address] Performed By: #### 5 8410-2 ####[facility]ORYCLIA [id number] [address] OF [facility] RBC (Bld) [#/Vol] 4.13 10*6/uL Normal 3.90-5.20 [facility] Comment on above: Order Comment: Speci men Type: BLOOD SPECIMENOrdering Facility: [facility] Address: [address] [place] [address] Performed By: #### 5 8410-2 ####[facility]ORYCLIA [id number] [address] WBC (Bld) [#/Vol] 4.70 10*3/uL Normal 3.70-11.00 [facility] Comment on above: Order Comment: Speci men Type: BLOOD SPECIMENOrdering Facility: [facility] Address: [address] [place] [address] Performed By: #### 5 8410-2 ####[facility]ORYCLIA [id number] [address] NURSING PROGon 06-14-2024 NURSING PROG HNO ID: [id number] Author: JOSE JERNIGAN RN Service: Nursing Author [...] XR and lidocaine patch Normal [facility] XR SHLDR >/=3V AP/JASON AP/OTH R [...] portions of the right lung are clear. Ripening Room Attendant: PSCB Transcribe Date/Time: Jun 14 2024 1:33P Dictated by : DEV WELCH MD This examination was interpreted and the report reviewed and electronically signed by: DEV WELCH MD on Jun 14 2024 1:35PM EST [id number] Normal [facility] ALLIED HEALTHon 06-13-2024 ALLIED HEALTH HNO ID: [id number] Author: ALFRED DALEY Chaplain Service: ? Author Type: Volunteer Coordinator Type: Allied Health Filed: 06/13/2024 14:38 Note Text: SPIRITUAL CARE ASSESSMENT SERVICE DATE: 06/13/2024 SERVICE TIME: 11:53 Visit with: Patient Length of visit (minutes): 5 Tenriism / Spirituality: Pt did not Disc. Reason: [...] PM PAGER/CONTACT #: [phone] Normal [facility] Basic metabolic 2000 panelon 06-13-2024 Anion gap [Moles/Vol] 11 mmol/L Normal 8-15 [facility] Comment on above: Order Comment: Speci men Type: BLOOD SPECIMEN Ordering Facility: [facility] Address: [address] [place] [address] Performed By: #### 2 4321-2, 27022-0, #### [facility] CLIA [id number] [address] [place] [address] [place] Calcium [Mass/Vol] 8.9 mg/dL Normal 8.5-10.2 [facility] Comment on above: Order Comment: Speci men Type: BLOOD SPECIMEN Ordering Facility: [facility] Address: [address] [place] [address] Performed By: #### 2 1-2, 54248-3, #### [facility] CLIA [id number] [address] [place] [address] [place] Chloride [Moles/Vol] 101 mmol/L Normal 98-107 [facility] Comment on above: Order Comment: Speci men Type: BLOOD SPECIMEN Ordering Facility: [facility] Address: [address] [place] [address] Performed By: #### 2 4321-2, 78003-0, #### [facility] CLIA [id number] [address] [place] CO2 [Moles/Vol] 24 mmol/L Normal 22-30 [facility] Comment on above: Order Comment: Speci men Type: BLOOD SPECIMEN Ordering Facility: [facility] Address: [address] [place] [address] Performed By: #### 2 1-2, 68994-4, #### [facility] CLIA [id number] [address] [place] [address] [place] Creatinine [Mass/Vol] 1.04 mg/dL High 0.58-0.96 [facility] Comment on above: Order Comment: Speci men Type: BLOOD SPECIMEN Ordering Facility: [facility] Address: [address] [place] [address] Performed By: #### 2 4321-2, 17150-5, #### [place] [facility] CLIA [id number] [address] [place] Creatinine and Glomerular filtration rate.predicted panel (S/P/Bld) 53 mL/min/1.73m??? Low >=60 [facility] Comment on above: Order Comment: Rhina mason Type: BLOOD SPECIMEN Ordering Facility: [facility] Address: [address] [place] [address] Result Comment: Isa mated Glomerular Filtration Rate [...] actual GFR. Performed By: #### 2 4321-2, 03571-3, #### [facility] CLIA [id number] [address] [place] [address] [place] Glucose [Mass/Vol] 95 mg/dL Normal 74-99 [facility] Comment on above: Order Comment: Rhina mason Type: BLOOD SPECIMEN Ordering Facility: [facility] Address: [address] [place] [address] Result Comment: The [place] Diabetes [employer] (ADA) provides guidance for cutoff [...] Standards of Medical Care in Diabetes 2016, [place] [employer]. Diabetes Care. 2016.39(Suppl 1). Performed By: #### 2 4321-2, 88570-6, #### [facility] CLIA [id number] [address] [place] [address] [place] Potassium [Moles/Vol] 3.8 mmol/L Normal 3.7-5.1 [facility] Comment on above: Order Comment: Rhina mason Type: BLOOD SPECIMEN Ordering Facility: [facility] Address: [address] [place] [address] Performed By: #### 2 4321-2, 70178-5, #### [facility] CLIA [id number] [address] STATES [facility] Sodium [Moles/Vol] 136 mmol/L Normal 136-144 [facility] Comment on above: Order Comment: Speci men Type: BLOOD SPECIMEN Ordering Facility: [facility] Address: [address] [place] [address] Performed By: #### 2 4321-2, 57370-7, #### [facility] CLIA [id number] [address] [place] Urea nitrogen [Mass/Vol] 16 mg/dL Normal 7-21 [facility] Comment on above: Order Comment: Speci men Type: BLOOD SPECIMEN Ordering Facility: [facility] Address: [address] [place] [address] Performed By: #### 2 4321-2, 56793-3, #### [facility] CLIA [id number] [address] STATES OF [facility] CBC panel Auto (Bld)on 06-13 Erythrocyte distribution width (RBC) [Ratio] 15.5 % High 11.5-15.0 [facility] Comment on above: Order Comment: Speci men Type: BLOOD SPECIMENOrdering Facility: [facility] Address: [address] [place] [address] Performed By: #### 5 8410-2 ####[facility] [id number] [address] [place] Hematocrit (Bld) [Volume fraction] 33.1 % Low 36.0-46.0 [facility] Comment on above: Order Comment: Speci men Type: BLOOD SPECIMENOrdering Facility: [facility] Address: [address] [place] [address] Performed By: #### 5 8410-2 ####[facility]ORATORYCLIA [id number] [address] Hemoglobin (Bld) [Mass/Vol] 10.2 g/dL Low 11.5-15.5 [facility] Comment on above: Order Comment: Speci men Type: BLOOD SPECIMENOrdering Facility: [facility] Address: [address] [place] [address] Performed By: #### 5 8410-2 ####[facility] LABORATORYCLIA [id number] [address] MCH (RBC) [Entitic mass] 26.5 pg Normal 26.0-34.0 [facility] Comment on above: Order Comment: Speci men Type: BLOOD SPECIMENOrdering Facility: [facility] Address: [address] [place] [address] Performed By: #### 5 8410-2 ####[facility] LAB[facility]ATORYCLIA [id number] [address] MCHC (RBC) [Mass/Vol] 30.8 g/dL Normal 30.5-36.0 [facility] Comment on above: Order Comment: Speci men Type: BLOOD SPECIMENOrdering Facility: [facility] Address: [address] [place] [address] Performed By: #### 5 8410-2 ####[facility] LABORATORYCLIA [id number] [address] MCV (RBC) [Entitic vol] 86.0 fL Normal 80.0-100.0 [facility] Comment on above: Order Comment: Speci men Type: BLOOD SPECIMENOrdering Facility: [facility] Address: [address] [place] [address] Performed By: #### 5 8410-2 ####[facility] LABORATORYCLIA [id number] [address] Nucleated RBC (Bld) [#/Vol] 10*3/uL Normal <0.01 [facility] Comment on above: Order Comment: Speci men Type: BLOOD SPECIMENOrdering Facility: [facility] Address: [address] [place] [address] Performed By: #### 5 8410-2 ####[facility] LABORATORYCLIA [id number] [address] [place] Platelet mean volume (Bld) [Entitic vol] 9.6 fL Normal 9.0-12.7 [facility] Comment on above: Order Comment: Speci men Type: BLOOD SPECIMENOrdering Facility: [facility] Address: [address] [place] [address] Performed By: #### 5 8410-2 ####[facility] LABORATORYCLIA [id number] [address] [place] Platelets (Bld) [#/Vol] 287 10*3/uL Normal 150-400 [facility] Comment on above: Order Comment: Speci men Type: BLOOD SPECIMENOrdering Facility: [facility] Address: [address] [place] [address] Performed By: #### 5 8410-2 ####[facility] LABORATORYCLIA [id number] [place] [address] [place] RBC (Bld) [#/Vol] 3.85 10*6/uL Low 3.90-5.20 [facility] Comment on above: Order Comment: Speci men Type: BLOOD SPECIMENOrdering Facility: [facility] Address: [address] [place] [address] Performed By: #### 5 8410-2 ####[facility] LABORATORYCLIA [id number] [place] [address] [place] WBC (Bld) [#/Vol] 4.79 10*3/uL Normal 3.70-11.00 [facility] Comment on above: Order Comment: Speci men Type: BLOOD SPECIMENOrdering Facility: [facility] Address: [address] [place] [address] Performed By: #### 5 8410-2 ####[facility] LABORATORYCLIA [id number] [place] [id number] [place] aPTT PPPon 11-27-2024 aPTT Coag (PPP) [Time] 51.3 s High 23.0-32.4 [facility] Comment on above: Order Comment: Speci men Type: BLOOD SPECIMEN [facility] Address: [address] [place], [place] [address] Performed By: #### 2 4321-2, 17217-8, #### [facility] CLIA [id number] [address] aPTT Coag (PPP) [Time] 89.0 s High 23.0-32.4 [facility] Comment on above: Order Comment: Speci men Type: BLOOD SPECIMEN [facility] Address: [address] [place] [address] Performed By: #### 2 4321-2, 70698-3, #### [facility] CLIA [id number] [address] ALLIED HEALTHon 06-12-2024 ALLIED HEALTH HNO ID: [id number] Author: HELLEN SEVILLA RT(R) Service: Radiology Author [...] PATIENT PRESENTS WITH AN IMPLANTABLE OR ATTACHED ENGINEERING AIDE: No RADIOLOGY DEPARTMENT: CT; Exam(s) Completed: Brain PERIPHERAL IV DATA: Not applicable SIGNED BY: RT Reji(R) June 12, 2024 9:13 AM Normal [facility] CBC W Auto Differential pane l (Bld)on 06-12-2024 Basophils (Bld) [#/Vol] 0.03 10*3/uL Normal <0.11 [facility] Comment on above: Order Comment: Speci men Type: BLOOD SPECIMEN [facility] Address: [address] [place] [address] Performed By: #### 2 4321-2, 06853-9, #### [facility] CLIA [id number] [address] [place] Basophils/100 WBC (Bld) 0.6 % Normal [facility] Comment on above: Order Comment: Speci men Type: BLOOD SPECIMEN [facility] Address: [address] [place] [address] Performed By: #### 2 4321-2, 93910-5, #### [facility] CLIA [id number] [address] STATES OF [facility] Differential cell count method Nom (Bld) Auto Normal [facility] Comment on above: Order Comment: Speci men Type: BLOOD SPECIMEN [facility] Address: [address] [place] [address] Performed By: #### 2 4321-2, 43011-2, #### [facility] CLIA [id number] [address] [place] Eosinophils (Bld) [#/Vol] 0.05 10*3/uL Normal <0.46 [facility] Comment on above: Order Comment: Speci men Type: BLOOD SPECIMEN [facility] Address: [address] [place] [address] Performed By: #### 2 4321-2, 07055-2, #### [facility] CLIA [id number] [address] OF [facility] Eosinophils/100 WBC (Bld) 1.0 % Normal [facility] Comment on above: Order Comment: Speci men Type: BLOOD SPECIMEN [facility] Address: [address] [place] [address] Performed By: #### 2 4321-2, 32813-9, #### [facility] CLIA [id number] [address] [place] Erythrocyte distribution width (RBC) [Ratio] 15.6 % High 11.5-15.0 [facility] Comment on above: Order Comment: Speci men Type: BLOOD SPECIMEN [facility] Address: [facility] [place] [address] Performed By: #### 2 4321-2, 99580-1, #### [facility] CLIA [id number] [address] [place] Hematocrit (Bld) [Volume fraction] 34.6 % Low 36.0-46.0 [facility] Comment on above: Order Comment: Speci men Type: BLOOD SPECIMEN [facility] Address: [address] [place] [address] Performed By: #### 2 4320-2, 39516-5, #### [facility] CLIA [id number] [address] [place] Hemoglobin (Bld) [Mass/Vol] 10.6 g/dL Low 11.5-15.5 [facility] Comment on above: Order Comment: Speci men Type: BLOOD SPECIMEN [facility] Address: [address] [place] [address] Performed By: #### 2 1-2, 23760-8, #### [facility] CLIA [id number] [address] [place] Immature granulocytes (Bld) [#/Vol] 10*3/uL Normal <0.10 [facility] Comment on above: Order Comment: Speci men Type: BLOOD SPECIMEN [facility] Address: [address] [place] [address] Performed By: #### 2 4321-2, 90545-0, #### [facility] CLIA [id number] [address] STATES OF [facility] Immature granulocytes/100 WBC (Bld) 0.2 % Normal [facility] Comment on above: Order Comment: Speci men Type: BLOOD SPECIMEN [facility] Address: [address] [place] [address] Performed By: #### 2 4321-2, 48501-9, #### [facility] CLIA [id number] [address] [place] Lymphocytes (Bld) [#/Vol] 1.65 10*3/uL Normal 1.00-4.00 [facility] Comment on above: Order Comment: Speci men Type: BLOOD SPECIMEN [facility] Address: [address] [place] [address] Performed By: #### 2 4321-2, 50454-4, #### [facility] CLIA [id number] [address] Lymphocytes/100 WBC (Bld) 31.9 % Normal [facility] Comment on above: Order Comment: Speci men Type: BLOOD SPECIMEN [facility] Address: [address] [place] [address] Performed By: #### 2 4321-2, 58112-3, #### [facility] CLIA [id number] [address] [place] MCH (RBC) [Entitic mass] 26.2 pg Normal 26.0-34.0 [facility] Comment on above: Order Comment: Speci men Type: BLOOD SPECIMEN [facility] Address: [address] [place] [address] Performed By: #### 2 4321-2, 73750-1, #### [facility] CLIA [id number] [address] [place] MCHC (RBC) [Mass/Vol] 30.6 g/dL Normal 30.5-36.0 [facility] Comment on above: Order Comment: Speci men Type: BLOOD SPECIMEN [facility] Address: [address] [place] [address] Performed By: #### 2 1-2, 94016-6, #### [facility] CLIA [id number] 1 [place] [address] [place] MCV (RBC) [Entitic vol] 85.6 fL Normal 80.0-100.0 [facility] Comment on above: Order Comment: Speci men Type: BLOOD SPECIMEN [facility] Address: [address] [place] [address] Performed By: #### 2 4320-2, 81692-9, #### [facility] CLIA [id number] [address] [place] Monocytes (Bld) [#/Vol] 0.46 10*3/uL Normal <0.87 [facility] Comment on above: Order Comment: Speci men Type: BLOOD SPECIMEN [facility] Address: [address] [place] [address] Performed By: #### 2 4320-2, 05842-3, #### [facility] CLIA [id number] [address] [place] Monocytes/100 WBC (Bld) 8.9 % Normal A [facility] Comment on above: Order Comment: Speci men Type: BLOOD SPECIMEN [facility] Address: [address] [place] [address] Performed By: #### 2 1-2, 10152-1, #### [facility] CLIA [id number] 1 [place] [address] [place] Neutrophils (Bld) [#/Vol] 2.97 10*3/uL Normal 1.45-7.50 [facility] Comment on above: Order Comment: Speci men Type: BLOOD SPECIMEN [facility] Address: [address] [place] [address] Performed By: #### 2 4321-2, 67652-2, #### [facility] CLIA [id number] [address] Neutrophils/100 WBC (Bld) 57.4 % Normal [facility] Comment on above: Order Comment: Speci men Type: BLOOD SPECIMEN [facility] Address: [address] [place] [address] Performed By: #### 2 4321-2, 85031-6, #### [facility] CLIA [id number] [address] [place] Nucleated RBC (Bld) [#/Vol] 10*3/uL Normal <0.01 [facility] Comment on above: Order Comment: Speci men Type: BLOOD SPECIMEN [facility] Address: [address] [place] [address] Performed By: #### 2 4320-2, 27557-1, #### [facility] CLIA [id number] [address] Nucleated RBC/100 WBC (Bld) [Ratio] 0.0 /100 WBC Normal [facility] Comment on above: Order Comment: Speci men Type: BLOOD SPECIMEN [facility] Address: [address] [place] [address] Performed By: #### 2 1-2, 46897-1, #### [facility] CLIA [id number] [address] [place] Platelet mean volume (Bld) [Entitic vol] 9.6 fL Normal 9.0-12.7 [facility] Comment on above: Order Comment: Speci men Type: BLOOD SPECIMEN [facility] Address: [address] [place] [address] Performed By: #### 2 4321-2, 85475-8, #### [facility] CLIA [id number] [address] [place] Platelets (Bld) [#/Vol] 314 10*3/uL Normal 150-400 [facility] Comment on above: Order Comment: Speci men Type: BLOOD SPECIMEN [facility] Address: [address] [place] [address] Performed By: #### 2 4321-2, 73425-4, 93237-3 #### [facility] CLIA [id number] 1 [place] [address] [facility] [place] RBC (Bld) [#/Vol] 4.04 10*6/uL Normal 3.90-5.20 [facility] Comment on above: Order Comment: Speci men Type: BLOOD SPECIMEN [facility] Address: [address] [place] [address] Performed By: #### 2 4321-2, 89390-6, 06925-4 #### [facility] CLIA [id number] [address] [place] WBC (Bld) [#/Vol] 5.17 10*3/uL Normal 3.70-11.00 [facility] Comment on above: Order Comment: Speci men Type: BLOOD SPECIMEN [facility] Address: [address] [place] [address] Performed By: #### 2 4321-2, 93800-8, 25980-1 #### [facility] CLIA [id number] [address] [place] CONSULTon 06-12-2024 CONSULT HNO ID: [id number] Author: MINA TALBERT MD Service: Cardiovascular Disease Author Type: Physician Type: Consults Filed: 06/12/2024 10:40 Note Text: CARDIOLOGY CONSULTATION- [facility] Patient Name: Mel Castillo : 1940 PRIMARY CARE PHYSICIAN: Jared Evans MD [address] [place] [id number] REFERRING PHYSICIAN No referring provider defined for this encounter. Chief Complaint Patient presents with: Nausea AND Vomiting: Sudden onset of n/v starting approx 5pm. Denies abd pain or diarrhea. Pt arriving from home, reporting general weakness after the vomiting History of Present Illness: Mel Kareem Castillo is a 83 year old female we are consulted to see to assess presumptive 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[facility] chronic A-fib with history of prior stroke PAD COPD [...] the hospital a few months ago at [facility] she was taking her Eliquis and [...] Don Edwards DO 5 mg at 06/11/24 09 metoprolol tartrate (short acting) 25 mg tab(s) [...] (more content not included)... Normal [facility] CONSULT PROGon 06-12-2024 CONSULT PROG HNO ID: [id number] Author: NICOLAS TESFAYE APRN.EDUCATION PROGRAM COORDINATOR Service: Neurology General Author Type: Nurse Practitioner [...] Score: 1 (06/12/24 0945 : Nicolas Tesfaye APRN.EDUCATION PROGRAM COORDINATOR) 1 MENTAL STATUS: Alert, oriented to person, [...] and Prevention (personally reviewed by Nicolas Tesfaye APRN.EDUCATION PROGRAM COORDINATOR): Daily Rounding Date: 06/12/24 Daily Rounding Time: [...] (more content not included)... Normal [facility] CT BRAIN WO IVCONon 06-12-20 CT BRAIN WO IVCON * * *Final Report* * * DATE OF EXAM: Jun 12 2024 9:25AM [facility] 0504 - CT BRAIN WO IVCON / [...] intracranial hemorrhage. Chronic changes, as detailed above. Ripening Room Attendant: PSCB Transcribe Date/Time: Jun 12 2024 9:42A Dictated by : LYDIA EVANS MD This examination was interpreted and the report reviewed and electronically signed by: LYDIA EVANS MD on Jun 12 2024 9:47AM EST [id number] Normal [facility] Comprehensive metabolic 2000 panelon 06-12-2024 Albumin [Mass/Vol] 3.6 g/dL Low 3.9-4.9 [facility] Comment on above: Order Comment: Rhina mason Type: BLOOD SPECIMEN [facility] Address: [address] [place] [address] Performed By: #### 2 4321-2, 13871-4, #### [facility] CLIA [id number] [address] STATES OF [facility] ALP [Catalytic activity/Vol] 88 U/L Normal 34-123 [facility] Comment on above: Order Comment: Rhina mason Type: BLOOD SPECIMEN [facility] Address: [address] [place] [address] Performed By: #### 2 4321-2, 66179-8, #### [facility] CLIA [id number] [address] [place] ALT With P-5'-P [Catalytic activity/Vol] 6 U/L Low 7-38 [facility] Comment on above: Order Comment: Samiri isabella Type: BLOOD SPECIMEN [facility] Address: [address] [place] [address] Performed By: #### 2 4321-2, 14775-9, #### [facility] CLIA [id number] [address] Anion gap [Moles/Vol] 13 mmol/L Normal 8-15 [facility] Comment on above: Order Comment: Speci men Type: BLOOD SPECIMEN [facility] Address: [address] [place] [address] Performed By: #### 2 4321-2, 86547-0, #### [facility] CLIA [id number] [address] OF [facility] AST With P-5'-P [Catalytic activity/Vol] 9 U/L Low 13-35 [facility] Comment on above: Order Comment: Speci men Type: BLOOD SPECIMEN [facility] Address: [address] [place] [address] Performed By: #### 2 4321-2, 99066-6, #### [facility] CLIA [id number] [address] [place] Bilirubin [Mass/Vol] 0.6 mg/dL Normal 0.2-1.3 [facility] Comment on above: Order Comment: Speci men Type: BLOOD SPECIMEN [facility] Address: [address] [place] [address] Performed By: #### 2 4321-2, 80978-1, #### [facility] CLIA [id number] [address] STATES OF [facility] Calcium [Mass/Vol] 9.2 mg/dL Normal 8.5-10.2 [facility] Comment on above: Order Comment: Speci men Type: BLOOD SPECIMEN [facility] Address: [address] [place] [address] Performed By: #### 2 4321-2, 65179-5, #### [facility] CLIA [id number] [address] [place] [address] [place] Chloride [Moles/Vol] 101 mmol/L Normal 98-107 [facility] Comment on above: Order Comment: Speci men Type: BLOOD SPECIMEN [facility] Address: [address] [place] [address] Performed By: #### 2 4321-2, 02944-6, #### [facility] CLIA [id number] [address] [place] CO2 [Moles/Vol] 23 mmol/L Normal 22-30 [facility] Comment on above: Order Comment: Speci men Type: BLOOD SPECIMEN [facility]ing [facility] Address: [address] [place] [address] Performed By: #### 2 4321-2, 78854-7, #### [facility] CLIA [id number] [address] [place] Creatinine [Mass/Vol] 1.02 mg/dL High 0.58-0.96 [facility] Comment on above: Order Comment: Speci men Type: BLOOD SPECIMEN [facility]ing [facility] Address: [address] [place] [address] Performed By: #### 2 4321-2, 49260-8, #### [facility] CLIA [id number] [address] Creatinine and Glomerular filtration rate.predicted panel (S/P/Bld) 54 mL/min/1.73m??? Low >=60 [facility] Comment on above: Order Comment: Speci men Type: BLOOD SPECIMEN Ordering [facility] Address: [address] [place] [address] Result Comment: Isa mated Glomerular Filtration Rate [...] actual GFR. Performed By: #### 2 4321-2, 83866-1, 25473-7 #### [facility] CLIA [id number] [address] [place] [address] [place] Glucose [Mass/Vol] 109 mg/dL High 74-99 [facility] Comment on above: Order Comment: Rhina mason Type: BLOOD SPECIMEN [facility] Address: [address] [place] [address] Result Comment: The [place] Diabetes [employer] (ADA) provides guidance for cutoff [...] Standards of Medical Care in Diabetes 2016, [place] [employer]. Diabetes Care. 2016.39(Suppl 1). Performed By: #### 2 4321-2, 81844-6, #### [facility] CLIA [id number] [address] [place] [address] [place] Potassium [Moles/Vol] 4.0 mmol/L Normal 3.7-5.1 [facility] Comment on above: Order Comment: Rhina mason Type: BLOOD SPECIMEN [facility] Address: [address] [place] [address] Performed By: #### 2 4321-2, 32163-6, #### [facility] CLIA [id number] [address] [place] [address] [place] Protein [Mass/Vol] 6.4 g/dL Normal 6.3-8.0 [facility] Comment on above: Order Comment: Rhina mason Type: BLOOD SPECIMEN Ordering Facility: [facility] Address: [address] [place] [address] Performed By: #### 2 4321-2, 90486-6, 49727-5 #### [facility] CLIA [id number] [address] [place] [address] [place] Sodium [Moles/Vol] 137 mmol/L Normal 136-144 [facility] Comment on above: Order Comment: Speci men Type: BLOOD SPECIMEN Ordering [facility] Address: [address] [place] [address] Performed By: #### 2 4321-2, 91708-3, #### [facility] CLIA [id number] [address] STATES OF [facility] Urea nitrogen [Mass/Vol] 12 mg/dL Normal 7-21 [facility] Comment on above: Order Comment: Speci men Type: BLOOD SPECIMEN Ordering [facility] Address: [address] [place] [address] Performed By: #### 2 4321-2, 56020-6, #### [facility] CLIA [id number] [address] [place] Magnesium SerPl-mCncon 06-12 Magnesium [Mass/Vol] 2.3 mg/dL Normal 1.7-2.3 [facility] Comment on above: Order Comment: Speci men Type: BLOOD SPECIMEN [facility]ing [facility] Address: [address] [place] [address] Performed By: #### 2 4321-2, 79726-1, #### [facility] CLIA [id number] [address] [place] [address] [place] NURSING PROGon 06-12-2024 NURSING PROG HNO ID: [id number] Author: ROBINSON VELÁSQUEZ RN Service: ? Author [...] draw due at 1900 Normal [facility] PT EDon 06-12-2024 PT ED HNO ID: [id number] Author: DOT PETERSON RPh Service: Pharmacy Author Type: ? Type: Patient Education Filed: 06/12/2024 16:17 Note Text: Attestation signed by Dot Peterson [facility] at 06/12/2024 4:17 PM I have reviewed the documentation below and agree with the plan. A communication has been documented in the handoff tool for hopeful follow-up tomorrow. Dot Peterson, PharmD PHARMACY ANTICOAGULATION EDUCATION Patient Name: Mel [...] questions. Patient aware of copay. Nayana Rowan, Certified Pharmacist Assistant Normal [facility] THERAPY NTon 06-12-2024 THERAPY NT HNO ID: [id number] Author: LATOYA LONG, PT Service: Physical Therapy Author Type: Physical Therapist Type: Therapy (PT/OT/Speech/Resp) Filed: 06/12/2024 15:33 Note Text: Physical Therapy Treatment Summary SERVICE DATE: 06/12/2024 SERVICE TIME: 1445 to 1509 ROOM: [place] [address] PT 6 Clicks Score: 13 DISCHARGE RECOMMENDATIONS [...] Lack of coordination-other TREATMENT INTERVENTIONS Therapeutic Activity (29277), Neuromuscular Reeducation (73256) Timed Code Treatment (minutes): 23 Skilled Treatment Time (minutes): 23 Therapeutic Activity (33751) Treatment Minutes: 10 $ Therapeutic Activity (98397) Billed Units: 1 unit Training and assist with bed mobility, transfers and taking steps in place and side steps along the EOB with the walker. Neuromuscular Reeducation (77395) Treatment Minutes: 13 $ Neuromuscular Reeducation (99658) Billed Units: 1 unit Instructed pt in [...] (more content not included)... Normal [facility] THERAPY NT HNO ID: [id number] Author: SHANNAN SEGOVIA, OTR/L Service: Occupational Therapy Author Type: Occupational Therapist Type: Therapy (PT/OT/Speech/Resp) Filed: 06/12/2024 08:50 Note Text: Occupational Therapy Evaluation Summary SERVICE DATE: 06/12/2024 SERVICE TIME: 810 to 833 ROOM: [id number] OT 6 Clicks Score: 15 DISCHARGE RECOMMENDATIONS [...] and signs-other TREATMENT INTERVENTIONS Evaluation, Therapeutic Activity (38078) Timed Code Treatment (minutes): 8 Skilled Treatment Time (minutes): 23 $ Evaluation - Moderate (74732) Billed Units: 1 unit Therapeutic Activity (50645) Treatment Minutes: 8 $ Therapeutic Activity (42996) Billed Units: 1 unit TRAINING AND EDUCATION PROVIDED Assistive Device Use, Bed Mobility, Benefits of In-Hospital Mobility, Cognitive Stimulation Activities, Discharge Planning, Disease Specific Education, Role of Occupational Therapy, Safety/Judgment, Sitting Balance to Improve [place] with ADLs/Self-Care THERAPEUTIC SKILLS USED Activity Dosing, [...] (more content not included)... Normal [facility] aPTT PPPon 06-12-2024 aPTT Coag (PPP) [Time] 56.1 s High 23.0-32.4 [facility] Comment on above: Order Comment: Speci men Type: BLOOD SPECIMEN Ordering Facility: [facility] Address: [address] [place] [address] Performed By: #### 2 4321-2, 20023-0, #### [employer] [facility] CLIA [id number] [address] aPTT Coag (PPP) [Time] 79.0 s High 23.0-32.4 [facility] Comment on above: Order Comment: Speci men Type: BLOOD SPECIMEN Ordering Facility: [facility] Address: [address] [place] [address] Performed By: #### 1 4979-9 #### [facility] CLIA [id number] [address] aPTT Coag (PPP) [Time] 123.9 s High 23.0-32.4 [facility] Comment on above: Order Comment: Speci men Type: BLOOD SPECIMEN Ordering Facility: [facility] Address: [address] [place] [address] Performed By: #### 2 4321-2, 34757-1, #### [facility] CLIA [id number] [address] aPTT Coag (PPP) [Time] 117.3 s High 23.0-32.4 [facility] Comment on above: Order Comment: Speci men Type: BLOOD SPECIMEN Ordering Facility: [facility] Address: [address] [place] [address] Performed By: #### 2 4321-2, 71517-9, 25471-9 #### [facility] CLIA [id number] [address] [place] 36on 06-11-2024 36 Normal [facility] HEALTHon 06-11-2024 ALLIED HEALTH HNO ID: [id number] Author: FABIO KERR Tech Service: ? Author Type: [employer]ement [employer] Worker Type: Allied Health Filed: 06/11/2024 14:16 Note [...] PATIENT PRESENTS WITH AN IMPLANTABLE OR ATTACHED ENGINEERING AIDE: No RADIOLOGY DEPARTMENT: MR; Exam(s) Completed: Head: Routine Brain [place] MRA MRA Carotid PERIPHERAL IV DATA: Not applicable SIGNED BY: Anne Marie Carrillo June 11, 2024 2:15 PM Normal [facility] CBC W Auto Differential pane l (Bld)on 06-11-2024 Basophils (Bld) [#/Vol] 0.03 10*3/uL Normal <0.11 [facility] Comment on above: Order Comment: Speci isabella Type: BLOOD SPECIMEN Ordering Facility: [facility] Address: [address] [place] [address] Performed By: #### 2 4321-2, 96852-0, 02945-7 #### [facility] CLIA [id number] [address] [place] Basophils/100 WBC (Bld) 0.4 % Normal [facility] Comment on above: Order Comment: Speci men Type: BLOOD SPECIMEN Ordering Facility: [facility] Address: [address] [place] [address] Performed By: #### 2 4321-2, 89948-9, #### [facility] CLIA [id number] [address] [place] Differential cell count method Nom (Bld) Auto Normal [facility] Comment on above: Order Comment: Speci men Type: BLOOD SPECIMEN Ordering Facility: [facility] Address: [address] [place] [address] Performed By: #### 2 4321-2, 39138-0, #### [facility] CLIA [id number] [address] [place] [address] [place] Eosinophils (Bld) [#/Vol] 10*3/uL Normal <0.46 [facility] Comment on above: Order Comment: Speci men Type: BLOOD SPECIMEN Ordering Facility: [facility] Address: [address] [place] [address] Performed By: #### 2 4320-2, 75525-9, #### [facility] CLIA [id number] [address] STATES OF [facility] Eosinophils/100 WBC (Bld) 0.3 % Normal [facility] Comment on above: Order Comment: Speci men Type: BLOOD SPECIMEN Ordering Facility: [facility] Address: [address] [place] [address] Performed By: #### 2 1-2, 24546-7, #### [facility] CLIA [id number] [address] [place] Erythrocyte distribution width (RBC) [Ratio] 15.6 % High 11.5-15.0 [facility] Comment on above: Order Comment: Speci men Type: BLOOD SPECIMEN Ordering Facility: [facility] Address: [address] [place] [address] Performed By: #### 2 4321-2, 51975-8, #### [facility] CLIA [id number] [address] [place] [address] [place] Hematocrit (Bld) [Volume fraction] 37.6 % Normal 36.0-46.0 [facility] Comment on above: Order Comment: Speci men Type: BLOOD SPECIMEN Ordering Facility: [facility] Address: [address] [place] [address] Performed By: #### 2 4321-2, 00431-4, #### [facility] CLIA [id number] [address] [place] [address] [place] Hemoglobin (Bld) [Mass/Vol] 11.5 g/dL Normal 11.5-15.5 [facility] Comment on above: Order Comment: Speci men Type: BLOOD SPECIMEN Ordering Facility: [facility] Address: [address] [place] [address] Performed By: #### 2 4321-2, 60354-6, #### [facility] CLIA [id number] [address] [place] Immature granulocytes (Bld) [#/Vol] 0.03 10*3/uL Normal <0.10 [facility] Comment on above: Order Comment: Speci men Type: BLOOD SPECIMEN Ordering Facility: [facility] Address: [address] [place] [address] Performed By: #### 2 4321-2, 45990-4, #### [facility] CLIA [id number] [address] [place] Immature granulocytes/100 WBC (Bld) 0.4 % Normal [facility] Comment on above: Order Comment: Speci men Type: BLOOD SPECIMEN Ordering Facility: [facility] Address: [address] [place] [address] Performed By: #### 2 4321-2, 81758-0, #### [facility] CLIA [id number] [address] [place] Lymphocytes (Bld) [#/Vol] 1.26 10*3/uL Normal 1.00-4.00 [facility] Comment on above: Order Comment: Speci men Type: BLOOD SPECIMEN Ordering Facility: [facility] Address: [address] [place] [address] Performed By: #### 2 4321-2, 74103-5, #### [facility] CLIA [id number] [address] Lymphocytes/100 WBC (Bld) 16.9 % Normal [facility] Comment on above: Order Comment: Speci men Type: BLOOD SPECIMEN Ordering Facility: [facility] Address: [address] [place] [address] Performed By: #### 2 4321-2, 67288-0, #### [facility] CLIA [id number] [address] OF [facility] MCH (RBC) [Entitic mass] 26.6 pg Normal 26.0-34.0 [facility] Comment on above: Order Comment: Speci men Type: BLOOD SPECIMEN Ordering Facility: [facility] Address: [address] [place] [address] Performed By: #### 2 1-2, 82444-8, #### [facility] CLIA [id number] [address] MCHC (RBC) [Mass/Vol] 30.6 g/dL Normal 30.5-36.0 [facility] Comment on above: Order Comment: Speci men Type: BLOOD SPECIMEN Ordering Facility: [facility] Address: [address] [place] [address] Performed By: #### 2 4321-2, 88686-1, #### [facility] CLIA [id number] [address] MCV (RBC) [Entitic vol] 87.0 fL Normal 80.0-100.0 [facility] Comment on above: Order Comment: Speci men Type: BLOOD SPECIMEN Ordering Facility: [facility] Address: [address] [place] [address] Performed By: #### 2 4321-2, 06173-2, #### [facility] CLIA [id number] [address] [place] [address] [place] Monocytes (Bld) [#/Vol] 0.68 10*3/uL Normal <0.87 [facility] Comment on above: Order Comment: Speci men Type: BLOOD SPECIMEN Ordering Facility: [facility] Address: [address] [place] [address] Performed By: #### 2 1-2, 86563-3, #### [facility] CLIA [id number] [address] [place] Monocytes/100 WBC (Bld) 9.1 % Normal [facility] Comment on above: Order Comment: Speci men Type: BLOOD SPECIMEN Ordering Facility: [facility] Address: [address] [place] [address] Performed By: #### 2 4320-2, 63840-1, #### [facility] CLIA [id number] [address] [place] Neutrophils (Bld) [#/Vol] 5.43 10*3/uL Normal 1.45-7.50 [facility] Comment on above: Order Comment: Speci men Type: BLOOD SPECIMEN Ordering Facility: [facility] Address: [address] [place] [address] Performed By: #### 2 4320-2, 80587-2, #### [facility] CLIA [id number] [address] [place] Neutrophils/100 WBC (Bld) 72.9 % Normal [facility] Comment on above: Order Comment: Speci men Type: BLOOD SPECIMEN Ordering Facility: [facility] Address: [address] [place] [address] Performed By: #### 2 4320-2, 32884-6, #### [facility] CLIA [id number] 1 [place] [address] [place] Nucleated RBC (Bld) [#/Vol] 10*3/uL Normal <0.01 [facility] Comment on above: Order Comment: Speci men Type: BLOOD SPECIMEN Ordering Facility: [facility] Address: [address] [place] [address] Performed By: #### 2 4321-2, 38692-8, #### [facility] CLIA [id number] [address] [place] Nucleated RBC/100 WBC (Bld) [Ratio] 0.0 /100 WBC Normal [facility] Comment on above: Order Comment: Speci men Type: BLOOD SPECIMEN Ordering Facility: [facility] Address: [address] [place] [address] Performed By: #### 2 4321-2, 20932-4, #### [facility] CLIA [id number] [address] [place] Platelet mean volume (Bld) [Entitic vol] 9.5 fL Normal 9.0-12.7 [facility] Comment on above: Order Comment: Speci men Type: BLOOD SPECIMEN Ordering Facility: [facility] Address: [address] [place] [address] Performed By: #### 2 4321-2, 45025-0, #### [facility] CLIA [id number] [address] [place] Platelets (Bld) [#/Vol] 329 10*3/uL Normal 150-400 [facility] Comment on above: Order Comment: Speci men Type: BLOOD SPECIMEN Ordering Facility: [facility] Address: [address] [place] [address] Performed By: #### 2 4321-2, 52701-4, #### [facility] CLIA [id number] [address] [place] RBC (Bld) [#/Vol] 4.32 10*6/uL Normal 3.90-5.20 [facility] Comment on above: Order Comment: Speci men Type: BLOOD SPECIMEN Ordering Facility: [facility] Address: [address] [place] [address] Performed By: #### 2 4321-2, 49825-2, 45106-6 #### [facility] CLIA [id number] [address] WBC (Bld) [#/Vol] 7.45 10*3/uL Normal 3.70-11.00 [facility] Comment on above: Order Comment: Speci men Type: BLOOD SPECIMEN Ordering Facility: [facility] Address: [address] [place] [id number] Performed By: #### 2 4321-2, 49356-5, 79940-8 #### [facility] CLIA [id number] 1 [place] [id number] [facility] CONSULTon 06-11-2024 CONSULT HNO ID: [id number] Author: JENNY WALLACE MD Service: Neurology General [...] (more content not included)... Normal [facility] CONSULT HNO ID: [id number] Author: TOÑO MANZO MD Service: Urology Author [...] discussed with the Patient or Patient's Authorized Medical Staff Physician. As applicable, any other physician, advance practice provider, medical student, or other health professional student that will be observing or involved in the sensitive examination for educational or training purposes was discussed with the Patient or Authorized Medical Staff Physician. The Patient or Authorized Medical Staff Physician has agreed to proceed with the sensitive [...] lesion. Consider follow-up renal CT/MR for characterization. Ripening Room Attendant: DEVEN Chaudhry (more content not included)... Normal [facility] CONSULT PROGon 06-11-2024 CONSULT PROG HNO ID: [id number] Author: CARL PERSAUD RPh Service: Pharmacy Author [...] this patient. Carl Persaud RPh [facility] CONSULT PROG HNO ID: [id number] Author: CARL PERSAUD RPh Service: Pharmacy Author [...] on 06/10/24. Patient was being managed by [facility] but was recently released due to insurance [...] Signature: Carl Persaud RPh Normal [facility] CT ABD/PEL W IVCONon 024 CT ABD/PEL W IVCON * * *Final Report* * * DATE OF EXAM: Jun 11 2024 3:07AM [facility] 0530 - CT ABD/PEL W IVCON / [...] to bilateral greater trochanters, similar to prior. Casing Man (topogram) images: No additional findings. IMPRESSION: 1. Mild bilateral hydroureteronephrosis to the pelvic brim without evidence of ureterolithiasis. 2. Indeterminate left renal lesion. Consider follow-up renal CT/MR for characterization. Ripening Room Attendant: DEVEN Transcribe Date/Time: Jun 11 2024 3:09A Dictated by : RAF AYALA MD This examination was interpreted and the report reviewed and electronically signed by: RAF AYALA MD on Jun 11 2024 3:40AM EST [id number] Normal [facility] CT BRAIN WO IVCONon 06-11-20 CT BRAIN WO IVCON * * *Final Report* * * DATE OF EXAM: Jun 11 2024 3:05AM [facility] 0504 - CT BRAIN WO IVCON / [...] changes and small remote right occipital infarct. Ripening Room Attendant: PSCB Transcribe Date/Time: Jun 11 2024 3:05A Dictated by : RIN LANE MD This examination was interpreted and the report reviewed and electronically signed by: RIN LANE MD on Jun 11 2024 3:16AM EST [id number] Normal [facility] ECHO WITH AGITATED SALINE CO NTRASTon 06-11-2024 ECHO WITH AGITATED SALINE CONTRAST Echocardiography Report: Transthoracic Echo [facility] Date of service: 06/11/2024 11:20:46 AM HOSPITAL Ordering physician: DON EDWARDS Indication: TIA Technologist: Dinora Fields [facility] Interpreting physician: Nando Costa MD PATIENT: [...] * * Final * * * CC [employer] [facility] : [id number] Normal [facility] ED NOTEon 06-11-2024 ED NOTE HNO ID: [id number] Author: GISSELL CARRINGTON RN Service: Emergency Medicine Author Type: Registered Nurse Type: ED Notes Filed: 06/11/2024 05:58 Note Text: Gave report to assigned RN on 2100. Assigned RN is ready to receive patient at this time. Normal [facility] ED NOTE HNO ID: [id number] Author: GISSELL CARRINGTON RN Service: Emergency Medicine Author Type: Registered Nurse Type: ED Notes Filed: 06/11/2024 00:40 Note Text: Dr. Mendoza at bedside placing a US IV at this time. Normal [facility] HIGH SENSITIVITY TROPONIN T (SECOND)on 06-11-2024 Troponin T.cardiac High sensitivity method [Mass/Vol] 14 ng/L High <12 [facility] Comment on above: Order Comment: Speci men Type: BLOOD SPECIMEN Ordering Facility: [facility] Address: [address] [place] [address] Performed By: #### 2 4321-2, 86319-3, 27405-3 #### [facility] CLIA [id number] [address] HIGH SENSITIVITY TROPONIN T (THIRD) 3 HRS AFTER INITIALon 06-11-2024 Troponin T.cardiac High sensitivity method [Mass/Vol] 14 ng/L High <12 [facility] Comment on above: Order Comment: Speci men Type: BLOOD SPECIMEN Ordering Facility: [facility] Address: [address] [place] [address] Performed By: #### 2 4321-2, 73913-3, 89042-8 #### [facility] CLIA [id number] [address] HISTORY PHYSICALon HISTORY PHYSICAL HNO ID: [id number] Author: DON EDWARDS DO Service: Hospital Medicine Author Type: Physician Type: H&P Filed: 06/11/2024 14:14 Note Text: DEPARTMENT OF HOSPITAL MEDICINE HISTORY AND PHYSICAL EXAM SERVICE DATE: 06/11/2024 SERVICE TIME: 10:25 AM Primary Care Physician: Jared Evans MD, MD NIGHT AND WEEKEND COVERAGE: [place] COVERAGE: From 7am - 7pm, please call [phone] After 7pm, please call cross cover pager #[phone] Subjective CHIEF COMPLAINT: dizziness with vomiting, slurred [...] Drains, and Airways Line Duration Peripheral 06/11/24 [facility] Left Antecubital 20 Gauge <1 day Drain Duration External Collection Device 06/11/24 0250 [facility] <1 day Reviewed lines and needs to be continued: REASONS: Telemetry DATA: Diagnostic tests reviewed for today's visit: Most recent lab (more content not included)... Normal [facility] MRA BRAIN WO IVCONon 024 MRA BRAIN WO IVCON * * *Final Report* * * DATE OF EXAM: Jun 11 2024 3:52PM [facility] 0272 - MRA BRAIN WO IVCON / PROCEDURE REASON: Neuro deficit, acute, stroke suspected * * * * Physician Interpretation * * * * EXAMINATION: MRI BRAIN WO IVCON, MRA BRAIN WO IVCON, MRA CAROTID WO IVCON CLINICAL HISTORY: Neuro deficit, acute, stroke suspected TECHNIQUE: Routine noncontrast MRI brain protocol including diffusion images. Intracranial and carotid 3D melv-fp-kyiyun MRA. 3D maximum intensity projection images were [...] Patency: Bilateral Dominance: Left INTRACRANIAL MRA: The [place] is patent without significant stenosis. 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 IMPRESSION: Motion degraded study. 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 No hemorrhagic transformation or significant mass effect. Unremarkable carotid MRA. 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 Ripening Room Attendant: PSCB Transcribe Date/Time: Jun 11 2024 3:54P Dictated by : ESTHER MCKEON MD This examination was interpreted and the report reviewed and electronically signed by: ESTHER MCKEON MD on Jun 11 2024 4:13PM EST [id number] Normal [facility] MRA CAROTID WO IVCONon 06-11 MRA CAROTID WO IVCON * * *Final Report* * * DATE OF EXAM: Jun 11 2024 3:52PM [facility] 0275 - MRA CAROTID WO IVCON / PROCEDURE REASON: Neuro deficit, acute, stroke suspected * * * * Physician Interpretation * * * * EXAMINATION: MRI BRAIN WO IVCON, MRA BRAIN WO IVCON, MRA CAROTID WO IVCON CLINICAL HISTORY: Neuro deficit, acute, stroke suspected TECHNIQUE: Routine noncontrast MRI brain protocol including diffusion images. Intracranial and carotid 3D jeio-cq-ecbdfv MRA. 3D maximum intensity projection images were [...] Patency: Bilateral Dominance: Left INTRACRANIAL MRA: The [place] is patent without significant stenosis. 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 IMPRESSION: Motion degraded study. 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 No hemorrhagic transformation or significant mass effect. Unremarkable carotid MRA. 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 Ripening Room Attendant[facility] Transcribe Date/Time: Jun 11 2024 3:54P Dictated by : ESTHER MCKEON MD This examination was interpreted and the report reviewed and electronically signed by: ESTHER MCKEON MD on Jun 11 2024 4:13PM EST [id number] Normal [facility] MRI BRAIN WO IVCONon 024 MRI BRAIN WO IVCON * * *Final Report* * * DATE OF EXAM: Jun 11 2024 3:52PM [facility] 0294 - MRI BRAIN WO IVCON / PROCEDURE REASON: stroke * * * * Physician Interpretation * * * * EXAMINATION: MRI BRAIN WO IVCON, MRA BRAIN WO IVCON, MRA CAROTID WO IVCON CLINICAL HISTORY: Neuro deficit, acute, stroke suspected TECHNIQUE: Routine noncontrast MRI brain protocol including diffusion images. Intracranial and carotid 3D grlx-hi-wcvdyx MRA. 3D maximum intensity projection images were [...] Patency: Bilateral Dominance: Left INTRACRANIAL MRA: The [place] is patent without significant stenosis. 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 IMPRESSION: Motion degraded study. 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 No hemorrhagic transformation or significant mass effect. Unremarkable carotid MRA. 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 Ripening Room Attendant[facility] Transcribe Date/Time: Jun 11 2024 3:54P Dictated by : ESTHER MCKEON MD This examination was interpreted and the report reviewed and electronically signed by: ESTHER MCEKON MD on Jun 11 2024 4:13PM EST [id number] Normal [facility] PT panel Coag (PPP)on 2023 INR Coag (PPP) [Relative time] 1.2 {INR} Normal 0.9-1.3 [facility] Comment on above: Order Comment: Speci men Type: BLOOD SPECIMEN Ordering Facility: [facility] Address: [address] [id number] Result Comment: Mayra min K Antagonist (VKA) Therapeutic Range: INR 2 to 3 (Target INR of 2.5) Note: For patients treated with VKA drugs, such as warfarin, the [employer] 2012 Guideline recommends [...] Chest 2012, 141:7S-47S Daren HOYT, et al. [facility] 2017, 70: 252-289 Performed By: #### 2 4321-2, 40850-7, 42536-9 #### [facility] CLIA [id number] [address] [place] [address] [place] PT Coag (PPP) [Time] 12.6 s Normal 9.7-13.0 [facility] Comment on above: Order Comment: Speci men Type: BLOOD SPECIMEN Ordering Facility: [facility] Address: [address] [place] [address] Performed By: #### 2 4321-2, 45547-9, 07310-1 #### [facility] CLIA [id number] [address] [place] [address] [place] THERAPY NTon 06-11-2024 THERAPY NT HNO ID: [id number] Author: BASILIA MAGALLANES, RUTH-SHIP SCRAPER Service: Speech/Swallow Author Type: Speech Language Pathologist Type: Therapy (PT/OT/Speech/Resp) Filed: 06/11/2024 09:44 Note Text: Speech Therapy Clinical Swallow Evaluation SERVICE DATE: 06/11/2024 SERVICE TIME: 16 to 09 ROOM: [place] [address] IMPRESSION: Functional oropharyngeal phases of swallowing: without [...] onset of vertigo, nausea and vomiting, weakness. 11: CT Brain- No acute intracranial abnormality. Subcortical [...] Skilled Need Interventions Provided: Clinical Swallow Evaluation (91048) $ Clinical Swallow Evaluation (00305) Billed Units: 1 unit Training and Education [...] for this therapy evaluation/treatment. SIGNATURE: Basilia Magallanes CCC-SHIP SCRAPER PATIENT NAME: Mel Castillo DATE: June 11, 2024 TIME: 9:39 AM Normal [facility] THERAPY NT HNO ID: [id number] Author: MEHREEN MANCERA, PT Service: Physical Therapy Author Type: Physical Therapist Type: Therapy (PT/OT/Speech/Resp) Filed: 06/11/2024 09:27 Note Text: Physical Therapy Evaluation Summary SERVICE DATE: 06/11/2024 SERVICE TIME: 804 to 841 ROOM: [id number] PT 6 Clicks Score: 18 DISCHARGE RECOMMENDATIONS [...] and signs-other TREATMENT INTERVENTIONS Evaluation, Canalith Repositioning (58202) Skilled Treatment Time (minutes): 37 $ Evaluation-Moderate (85628) Billed Units: 1 unit $ Canalith Repositioning (90310) Billed Units: 1 unit Repositioning maneuver for [...] postion. L torsional upbeating nystagmus (very brisk) Lulu-Hallpike, Right: Neg Horizontal Canals, Left: Pt with [...] (more content not included)... Normal [facility] Urinalysis complete panel (U )on 06-11-2024 Bilirubin Ql (U) Negative Normal Negative [facility] Comment on above: Order Comment: Speci men Type: URINE SPECIMENOrdering Facility: [facility] Address: [address] [place] [address] Performed By: #### 2 4356-8 ####[facility]ORYIA [id number] [address] [place] Clarity (Unsp spec) Clear Normal Clear [facility] Comment on above: Order Comment: Speci men Type: URINE SPECIMENOrdering Facility: [facility] Address: [address] [place] [address] Performed By: #### 2 4356-8 ####[facility]ATORYCLIA [id number] [address] [place] Color (U) Light Yellow Normal yellow [facility] Comment on above: Order Comment: Speci men Type: URINE SPECIMENOrdering Facility: [facility] Address: [address] [place] [address] Performed By: #### 2 4356-8 ####[facility]ATORYCLIA [id number] [address] [place] Glucose Test strip (U) [Mass/Vol] Negative Normal Trace, Negative [facility] Comment on above: Order Comment: Speci men Type: URINE SPECIMENOrdering Facility: [facility] Address: [address] [place] [address] Performed By: #### 2 4356-8 ####[facility] LABORATORYCLIA [id number] [place] [address] [place] Hemoglobin Ql (U) Trace Normal Negative, Trace [facility] Comment on above: Order Comment: Speci men Type: URINE SPECIMENOrdering Facility: [facility] Address: [address] [place] [address] Performed By: #### 2 4356-8 ####[facility]ATORYCLIA [id number] [address] Ketones Ql (U) Negative Normal Negative, Trace [facility] Comment on above: Order Comment: Speci men Type: URINE SPECIMENOrdering Facility: [facility] Address: [address] [place] [address] Performed By: #### 2 4356-8 ####[facility]ATORYCLIA [id number] [address] Leukocyte esterase Test strip Ql (U) Negative Normal Negative, 25 Jose Luis/uL [facility] Comment on above: Order Comment: Speci men Type: URINE SPECIMENOrdering Facility: [facility] Address: [address] [place] [address] Performed By: #### 2 4356-8 ####[facility]ATORYCLIA [id number] [place] [address] [place] Nitrite Ql (U) Negative Normal Negative [facility] Comment on above: Order Comment: Speci men Type: URINE SPECIMENOrdering Facility: [facility] Address: [address] [place] [address] Performed By: #### 2 4356-8 ####[facility]ATORYCLIA [id number] [address] [place] pH (U) [pH] High 5.0-8.0 [facility] Comment on above: Order Comment: Speci men Type: URINE SPECIMENOrdering Facility: [facility] Address: [address] [place] [address] Performed By: #### 2 4356-8 ####[facility]ATORYCLIA [id number] [address] STATES [facility] Protein (U) [Mass/Vol] 1+ Abnormal Trace , Negative [facility] Comment on above: Order Comment: Speci men Type: URINE SPECIMENOrdering Facility: [facility] Address: [address] [place] [address] Performed By: #### 2 4356-8 ####[facility]ATORYCLIA [id number] [address] STATES [facility] RBC LM.HPF (Urine sed) [#/Area] 6-10 /HPF Abnormal 0-3 /HPF [facility] Comment on above: Order Comment: Speci men Type: URINE SPECIMENOrdering Facility: [facility] Address: [address] [place] [address] Performed By: #### 2 4356-8 ####[facility]ATORYCLIA [id number] [address] Specific gravity (U) [Rel density] 1.039 High 1.005-1.030 [facility] Comment on above: Order Comment: Speci men Type: URINE SPECIMENOrdering Facility: [facility] Address: [address] [place] [address] Performed By: #### 2 4356-8 ####[facility]ATORYCLIA [id number] [address] Urobilinogen Ql (U) Normal Normal Normal [facility] Comment on above: Order Comment: Speci men Type: URINE SPECIMENOrdering Facility: [facility] Address: [address] [place] [address] Performed By: #### 2 4356-8 ####[facility] LAB[facility]ATORYCLIA [id number] [address] [place] WBC LM.HPF (Urine sed) [#/Area] 0-5 /HPF Normal 0-5 /HPF [facility] Comment on above: Order Comment: Speci men Type: URINE SPECIMENOrdering Facility: [facility] Address: [address] [place] [address] Performed By: #### 2 4356-8 ####[facility]ATORYCLIA [id number] [place] [address] [place] aPTT PPPon 06-11-2024 aPTT Coag (PPP) [Time] 28.2 s Normal 23.0-32.4 [facility] Comment on above: Order Comment: Speci men Type: BLOOD SPECIMENOrdering Facility: [facility] Address: [address] [place] [address] Performed By: #### 1 4979-9 ####[facility]ATORYCLIA [id number] [place] [address] [place] [facility] aPTT Coag (PPP) [Time] 28.9 s Normal 23.0-32.4 [facility] Comment on above: Order Comment: Speci men Type: BLOOD SPECIMEN Ordering Facility: [facility] Address: [address] [place] [address] Performed By: #### 2 4321-2, 98567-1, #### [facility] CLIA [id number] [address] STATES OF [facility] CBC W Auto Differential pane l (Bld)on 06-10-2024 Basophils (Bld) [#/Vol] 0.04 10*3/uL Normal <0.11 [facility] Comment on above: Order Comment: Speci men Type: BLOOD SPECIMEN Ordering Facility: [facility] Address: [address] [place] [address] Performed By: #### 2 4321-2, 86001-0, #### [facility] CLIA [id number] [address] [place] Basophils/100 WBC (Bld) 0.7 % Normal A [facility] Comment on above: Order Comment: Speci men Type: BLOOD SPECIMEN Ordering Facility: [facility] Address: [facility] [place] [address] Performed By: #### 2 4321-2, 12336-1, #### [facility] CLIA [id number] [address] [place] Differential cell count method Nom (Bld) Auto Normal [facility] Comment on above: Order Comment: Speci men Type: BLOOD SPECIMEN Ordering Facility: [facility] Address: [address] [place] [address] Performed By: #### 2 4321-2, 52453-7, #### [facility] CLIA [id number] [address] [place] [address] [place] Eosinophils (Bld) [#/Vol] 10*3/uL Normal <0.46 [facility] Comment on above: Order Comment: Speci men Type: BLOOD SPECIMEN Ordering Facility: [facility] Address: [address] [place] [address] Performed By: #### 2 1-2, 04679-6, #### [facility] CLIA [id number] [address] [place] Eosinophils/100 WBC (Bld) 0.2 % Normal [facility] Comment on above: Order Comment: Speci men Type: BLOOD SPECIMEN Ordering Facility: [facility] Address: [address] [place] [address] Performed By: #### 2 4321-2, 75927-8, #### [facility] CLIA [id number] [address] [place] Erythrocyte distribution width (RBC) [Ratio] 15.6 % High 11.5-15.0 [facility] Comment on above: Order Comment: Speci men Type: BLOOD SPECIMEN Ordering Facility: [facility] Address: [address] [place] [address] Performed By: #### 2 4321-2, 50113-4, #### [facility] CLIA [id number] [address] [place] [address] [place] Hematocrit (Bld) [Volume fraction] 37.5 % Normal 36.0-46.0 [facility] Comment on above: Order Comment: Speci men Type: BLOOD SPECIMEN Ordering Facility: [facility] Address: [address] [place] [address] Performed By: #### 2 4321-2, 25649-7, #### [facility] CLIA [id number] [address] [place] Hemoglobin (Bld) [Mass/Vol] 11.4 g/dL Low 11.5-15.5 [facility] Comment on above: Order Comment: Speci men Type: BLOOD SPECIMEN Ordering Facility: [facility] Address: [address] [place] [address] Performed By: #### 2 4321-2, 73997-2, #### [facility] CLIA [id number] [address] [place] Immature granulocytes (Bld) [#/Vol] 10*3/uL Normal <0.10 [facility] Comment on above: Order Comment: Speci men Type: BLOOD SPECIMEN Ordering Facility: [facility] Address: [address] [place] [address] Performed By: #### 2 4321-2, 81787-9, #### [facility] CLIA [id number] [address] [place] Immature granulocytes/100 WBC (Bld) 0.4 % Normal [facility] Comment on above: Order Comment: Speci men Type: BLOOD SPECIMEN Ordering Facility: [facility] Address: [address] [place] [address] Performed By: #### 2 4321-2, 91675-1, #### [facility] CLIA [id number] [address] [place] Lymphocytes (Bld) [#/Vol] 0.61 10*3/uL Low 1.00-4.00 [facility] Comment on above: Order Comment: Speci men Type: BLOOD SPECIMEN Ordering Facility: [facility] Address: [address] [place] [address] Performed By: #### 2 4321-2, 78501-7, #### [facility] CLIA [id number] [address] Lymphocytes/100 WBC (Bld) 10.8 % Normal [facility] Comment on above: Order Comment: Speci men Type: BLOOD SPECIMEN Ordering Facility: [facility] Address: [address] [place] [address] Performed By: #### 2 4321-2, 17652-7, #### [facility] CLIA [id number] [address] [place] MCH (RBC) [Entitic mass] 26.2 pg Normal 26.0-34.0 [facility] Comment on above: Order Comment: Speci men Type: BLOOD SPECIMEN Ordering Facility: [facility] Address: [address] [place] [address] Performed By: #### 2 4321-2, 56760-2, #### [facility] CLIA [id number] [address] STATES OF [facility] MCHC (RBC) [Mass/Vol] 30.4 g/dL Low 30.5-36.0 [facility] Comment on above: Order Comment: Speci men Type: BLOOD SPECIMEN Ordering Facility: [facility] Address: [address] [place] [address] Performed By: #### 2 4321-2, 88144-6, #### [facility] CLIA [id number] [address] MCV (RBC) [Entitic vol] 86.2 fL Normal 80.0-100.0 [facility] Comment on above: Order Comment: Speci men Type: BLOOD SPECIMEN Ordering Facility: [facility] Address: [address] [place] [address] Performed By: #### 2 4321-2, 53148-4, #### [facility] CLIA [id number] [address] [place] Monocytes (Bld) [#/Vol] 0.21 10*3/uL Normal <0.87 [facility] Comment on above: Order Comment: Speci men Type: BLOOD SPECIMEN Ordering Facility: [facility] Address: [address] [place] [address] Performed By: #### 2 4321-2, 81441-0, #### [facility] CLIA [id number] [address] OF [facility] Monocytes/100 WBC (Bld) 3.7 % Normal [facility] Comment on above: Order Comment: Speci men Type: BLOOD SPECIMEN Ordering Facility: [facility] Address: [address] [place] [address] Performed By: #### 2 1-2, 97505-0, #### [facility] CLIA [id number] [address] [place] Neutrophils (Bld) [#/Vol] 4.78 10*3/uL Normal 1.45-7.50 [facility] Comment on above: Order Comment: Speci men Type: BLOOD SPECIMEN Ordering Facility: [facility] Address: [address] [place] [address] Performed By: #### 2 1-2, 42170-7, #### [facility] CLIA [id number] [address] [place] Neutrophils/100 WBC (Bld) 84.2 % Normal [facility] Comment on above: Order Comment: Speci men Type: BLOOD SPECIMEN Ordering Facility: [facility] Address: [address] [place] [address] Performed By: #### 2 4321-2, 34991-5, #### [facility] CLIA [id number] [address] [place] Nucleated RBC (Bld) [#/Vol] 10*3/uL Normal <0.01 [facility] Comment on above: Order Comment: Speci men Type: BLOOD SPECIMEN Ordering Facility: [facility] Address: [address] [place] [address] Performed By: #### 2 4321-2, 02622-0, #### [facility] CLIA [id number] [address] [place] Nucleated RBC/100 WBC (Bld) [Ratio] 0.0 /100 WBC Normal [facility] Comment on above: Order Comment: Speci men Type: BLOOD SPECIMEN Ordering Facility: [facility] Address: [address] [place] [address] Performed By: #### 2 4321-2, 67759-6, #### [facility] CLIA [id number] [address] [place] Platelet mean volume (Bld) [Entitic vol] 9.4 fL Normal 9.0-12.7 [facility] Comment on above: Order Comment: Speci men Type: BLOOD SPECIMEN Ordering Facility: [facility] Address: [address] [place] [address] Performed By: #### 2 4321-2, 69299-5, #### [facility] CLIA [id number] [address] [place] Platelets (Bld) [#/Vol] 330 10*3/uL Normal 150-400 [facility] Comment on above: Order Comment: Speci men Type: BLOOD SPECIMEN Ordering Facility: [facility] Address: [address] [place] [address] Performed By: #### 2 4321-2, 95762-6, #### [facility] CLIA [id number] [address] [place] RBC (Bld) [#/Vol] 4.35 10*6/uL Normal 3.90-5.20 [facility] Comment on above: Order Comment: Speci men Type: BLOOD SPECIMEN Ordering Facility: [facility] Address: [address] [place] [address] Performed By: #### 2 4321-2, 90944-5, #### [facility] CLIA [id number] [address] OF [facility] WBC (Bld) [#/Vol] 5.67 10*3/uL Normal 3.70-11.00 [facility] Comment on above: Order Comment: Speci men Type: BLOOD SPECIMEN Ordering Facility: [facility] Address: [address] [place] [address] Performed By: #### 2 4321-2, 22240-8, #### [facility] CLIA [id number] [address] Comprehensive metabolic 2000 panelon 06-10-2024 Albumin [Mass/Vol] 4.2 g/dL Normal 3.9-4.9 [facility] Comment on above: Order Comment: Speci men Type: BLOOD SPECIMENOrdering Facility: [facility] Address: [address] [place] [address] Performed By: #### 3 016-3, 73513-1, 3024-7, 48504-0 ####[facility]ATORYCLIA [id number] [address] [place] ALP [Catalytic activity/Vol] 99 U/L Normal 34-123 [facility] Comment on above: Order Comment: Speci men Type: BLOOD SPECIMENOrdering Facility: [facility] Address: [address] [place] [address] Performed By: #### 3 016-3, 75684-3, 3024-7, 66682-0 ####[facility]ATORYCLIA [id number] [address] ALT With P-5'-P [Catalytic activity/Vol] 8 U/L Normal 7-38 [facility] Comment on above: Order Comment: Speci men Type: BLOOD SPECIMENOrdering Facility: [facility] Address: [address] [place] [address] Performed By: #### 3 016-3, 55509-1, 3024-7, 80187-1 ####[facility]ATORYCLIA [id number] [address] STATES OF [facility] Anion gap [Moles/Vol] 12 mmol/L Normal 8-15 [facility] Comment on above: Order Comment: Speci men Type: BLOOD SPECIMENOrdering Facility: [facility] Address: [address] [place] [address] Performed By: #### 3 016-3, 59144-7, 3023-7, 50010-8 ####[facility]ATORYCLIA [id number] [address] STATES OF [facility] AST With P-5'-P [Catalytic activity/Vol] 12 U/L Low 13-35 [facility] Comment on above: Order Comment: Speci men Type: BLOOD SPECIMENOrdering Facility: [facility] Address: [address] [place] [address] Performed By: #### 3 016-3, 65553-6, 302-7, 75420-7 ####[facility]ATORYCLIA [id number] [place] [address] [place] Bilirubin [Mass/Vol] 0.4 mg/dL Normal 0.2-1.3 [facility] Comment on above: Order Comment: Speci men Type: BLOOD SPECIMENOrdering Facility: [facility] Address: [address] [place] [address] Performed By: #### 3 016-3, 06563-6, 3024-7, 60498-1 ####[facility]ATORYCLIA [id number] [place] [address] [place] Calcium [Mass/Vol] 9.5 mg/dL Normal 8.5-10.2 [facility] Comment on above: Order Comment: Speci men Type: BLOOD SPECIMENOrdering Facility: [facility] Address: [address] [place] [address] Performed By: #### 3 016-3, 69535-2, 3024-7, 96645-1 ####[facility]ATORYCLIA [id number] [place] [address] [place] Chloride [Moles/Vol] 101 mmol/L Normal 98-107 [facility] Comment on above: Order Comment: Speci men Type: BLOOD SPECIMENOrdering Facility: [facility] Address: [address] [place] [address] Performed By: #### 3 016-3, 85521-9, 3024-7, 58902-5 ####[facility]ATORYCLIA [id number] [place] [address] [place] CO2 [Moles/Vol] 23 mmol/L Normal 22-30 [facility] Comment on above: Order Comment: Speci men Type: BLOOD SPECIMENOrdering Facility: [facility] Address: [address] [place] [address] Performed By: #### 3 016-3, 79095-2, 3023-7, 42942-6 ####[facility]ATORYCLIA [id number] [address] [place] Creatinine [Mass/Vol] 0.87 mg/dL Normal 0.58-0.96 [facility] Comment on above: Order Comment: Speci men Type: BLOOD SPECIMENOrdering Facility: [facility] Address: [address] [place] [address] Performed By: #### 3 016-3, 22629-2, 7, 79199-4 ####[facility]ATORYCLIA [id number] [address] Creatinine and Glomerular filtration rate.predicted panel (S/P/Bld) 66 mL/min/1.73m??? Normal >=60 [facility] Comment on above: Order Comment: Speci men Type: BLOOD SPECIMENOrdering Facility: [facility] Address: [address] [place] [address] Result Comment: Isa mated Glomerular Filtration Rate [...] actual GFR. Performed By: #### 3 016-3, 56856-3, 3023-7, 49276-9 ####[facility] LABORATORYCLIA [id number] [place] [address] [place] Glucose [Mass/Vol] 157 mg/dL High 74-99 [facility] Comment on above: Order Comment: Rhina mason Type: BLOOD SPECIMENOrdering Facility: [facility] Address: [address] [place] [address] Result Comment: The [employer] (ADA) provides guidance for cutoff [...] Standards of Medical Care in Diabetes 2016, [employer]. Diabetes Care. 2016.39(Suppl 1). Performed By: #### 3 016-3, 42666-8, 3024-01, ####[facility]ATORYCLIA [id number] [place] [address] [place] Potassium [Moles/Vol] 4.3 mmol/L Normal 3.7-5.1 [facility] Comment on above: Order Comment: Rhina mason Type: BLOOD SPECIMENOrdering Facility: [facility] Address: [address] [place] [address] Performed By: #### 3 016-3, 25251-4, 3023-7, 50530-1 ####[facility] LABORATORYCLIA [id number] [place] [address] [place] Protein [Mass/Vol] 7.1 g/dL Normal 6.3-8.0 [facility] Comment on above: Order Comment: Speci men Type: BLOOD SPECIMENOrdering Facility: [facility] Address: [address] [place] [address] Performed By: #### 3 016-3, 28372-0, 3024-7, 36544-5 ####[facility] LABORATORYCLIA [id number] [place] [id number] [place] [facility] Sodium [Moles/Vol] 136 mmol/L Normal 136-144 [facility] Comment on above: Order Comment: Speci men Type: BLOOD SPECIMENOrdering Facility: [facility] Address: [address] [place] [address] Performed By: #### 3 016-3, 15338-1, 3024-7, 94496-3 ####[facility] LABORATORYCLIA [id number] [address] STATES [facility] Urea nitrogen [Mass/Vol] 14 mg/dL Normal 7-21 [facility] Comment on above: Order Comment: Speci men Type: BLOOD SPECIMENOrdering Facility: [facility] Address: [address] [place] [address] Performed By: #### 3 016-3, 89773-8, 3024-7, 76201-6 ####[facility] LABORATORYCLIA [id number] [place] [id number] [place] [facility] ECG COMPLETEon 06-10-2024 ECG COMPLETE Ventricular Rate : 6 4 BPM QRS Duration : 90 ms Q-T Interval : 424 ms QTC Calculation(Bazett) : 437 ms Calculated R Monroe : 56 degrees Calculated T Monroe : 20 degrees ATRIAL FIBRILLATION ABNORMAL ECG NO PREVIOUS ECGS AVAILABLE Confirmed by RIAZ BROWNE, SAKINA ([id number]) on 12/07/2024 10:44:28 PM NAME : MEL GUADARRAMA PID : [id number] : 1940 Gender : Female Race : ORD : [id number] Procedure Date : Jun 10 2024 23:35:14 Edit Date : Dec 07 2024 22:44:32 Diagnosis: ATRIAL FIBRILLATION ABNORMAL ECG NO PREVIOUS ECGS AVAILABLE Confirmed by SAKINA MELLO MD ([id number]) on 12/07/2024 10:44:28 PM Test Reason : Chest Pain Location : 4 : AKED EM Overread By : SAKINA MELLO MD Edited By : SAKINA MELLO MD Referred By : , Acquired by : REGAN RODRIGES [facility] ED NOTEon 06-10-2024 ED NOTE HNO ID: [id number] Author: DAMARIS HERNANDEZ RN Service: ? Author Type: Registered Nurse Type: ED Notes Filed: 06/10/2024 23:06 Note Text: Bed: 36-ED Expected date: Expected time: Means of arrival: Comments: RAMESH [facility] ED PROV NOTEon 06-10-2024 ED PROV NOTE HNO ID: [id number] Author: THOMAS SERNA MD Service: Emergency Medicine [...] head to the left or right the Eris-Hallpike. No nystagmus noted vertical or lateral The [...] THOMAS SERNA 06/11/24 0519 Normal [facility] ED PROV NOTE HNO ID: [id number] Author: THOMAS SERNA MD Service: Emergency Medicine [...] (more content not included)... Normal [facility] HIGH SENSITIVITY TROPONIN T (INITIAL)on 06-10-2024 Troponin T.cardiac High sensitivity method [Mass/Vol] 14 ng/L High <12 [facility] Comment on above: Order Comment: Speci men Type: BLOOD SPECIMENOrdering Facility: [facility] Address: [address] [place] [address] Performed By: #### L [id number] ####[facility] LABORATORYCLIA [id number] [address] HbA1c (Bld)on 06-10-2024 Average glucose Estimated from glycated hemoglobin (Bld) [Mass/Vol] 120 mg/dL Normal [facility] Comment on above: Order Comment: [facility] Type: BLOOD SPECIMEN [facility] Address: [address] [place] [address] Result Comment: eAG: (Estimated average glucose) is a calculated value from HgbA1c and is cash posting representative of the average blood glucose level in the last 2-3 month period. Performed By: #### 2 4321-2, 44971-6, #### [facility] CLIA [id number] [address] HbA1c (Bld) [Mass fraction] 5.8 % High 4.3-5.6 [facility] Comment on above: Order Comment: [facility] Type: BLOOD SPECIMEN [facility] Address: [address] [place] [address] Result Comment: Amer [place] Diabetes Association guidelines indicate that patients with HgbA1c in the range 5.7-6.4% are at increased risk for development of diabetes, and intervention by lifestyle modification may be beneficial. HgbA1c greater or equal to 6.5% is considered diagnostic of diabetes. Performed By: #### 2 4321-2, 57692-9, #### [facility] CLIA [id number] [address] [place] Lipid 1996 panelon 4 Cholesterol [Mass/Vol] 227 mg/dL High <200 [facility] Comment on above: Order Comment: [facility] Type: BLOOD SPECIMENOrdering Facility: [facility] Address: [address] [place] [address] Result Comment: <200 mg/dL, Desirable 200-239 mg/dL, Borderline high >239 mg/dL, High Performed By: #### 3 016-3, 40746-9, 7, 39263-8 ####[facility] LABORATORYCLIA [id number] [address] OF [facility] Cholesterol in HDL [Mass/Vol] 78 mg/dL Normal >39 [facility] Comment on above: Order Comment: Speci men Type: BLOOD SPECIMENOrdering Facility: [facility] Address: [address] [place] [address] Result Comment: 40-5 9 mg/dL, Acceptable >59 mg/dL, High: Negative risk factor for coronary heart disease <40 mg/dL, Low: Positive risk factor for coronary heart disease Performed By: #### 3 016-3, 78050-7, 7, 10558-4 ####[facility] LABORATORYCLIA [id number] [address] Cholesterol in LDL [Mass/Vol] 139 mg/dL High <100 [facility] Comment on above: Order Comment: [facility]i [facility] Type: BLOOD SPECIMENOrdering Facility: [facility] Address: [address] [place] [address] Result Comment: <100 mg/dL, Optimal 100-129 mg/dL, Near optimal/above optimal 130-159 mg/dL, Borderline high 160-189 mg/dL, High >189 mg/dL, Very high Secondary prevention optimal LDL Cholesterol levels are recommended to be < 70 mg/dL Performed By: #### 3 016-3, 28385-0, 7, 27169-4 ####[facility] LABORATORYCLIA [id number] [address] Cholesterol in LDL/Cholesterol in HDL [Mass ratio] 1.78 {ratio} Normal <2.54 [facility] Comment on above: Order Comment: Speci men Type: BLOOD SPECIMENOrdering Facility: [facility] Address: [address] [place] [address] Result Comment: Refe rence: 1. National Cholesterol Education Program ATP III Guideline At-A-Glance Quick Desk Reference: National Heart, Lung, and Blood [place]. National Institutes of Health. 2001: NIH Publication No. 01-3305. 2. An International Atherosclerosis Society position paper: global recommendations for the management of dyslipidemia: executive summary, Atherosclerosis. 2014: 232(2):410-413. Performed By: #### 3 016-3, 95877-1, 3023-7, 71199-0 ####[facility] LABORATORYCLIA [id number] [place] [address] [place] Cholesterol in VLDL [Mass/Vol] 10 mg/dL Normal <30 [facility] Comment on above: Order Comment: Speci men Type: BLOOD SPECIMENOrdering Facility: [facility] Address: [address] [place] [address] Performed By: #### 3 016-3, 10423-4, 3024-01, 20880-5 ####[facility] LABORATORYCLIA [id number] [address] [place] Cholesterol non HDL [Mass/Vol] 149 mg/dL High <130 [facility] Comment on above: Order Comment: [facility] Type: BLOOD SPECIMENOrdering Facility: [facility] Address: [address] [place] [address] Result Comment: <130 mg/dL, Optimal 130-159 mg/dL, Near optimal/above optimal 160-189 mg/dL, Borderline high 190-219 mg/dL, High >219 mg/dL, Very high Secondary prevention optimal non HDL Cholesterol levels are recommended to be <100 mg/dL Performed By: #### 3 016-3, 79590-0, 3024-01, 17287-3 ####[facility] LABORATORYCLIA [id number] [address] [place] Cholesterol.total/Pastora sterol in HDL [Mass ratio] 2.91 {ratio} Normal <5.10 [facility] Comment on above: Order Comment: Samiri men Type: BLOOD SPECIMENOrdering Facility: [facility] Address: [address] [place] [address] Performed By: #### 3 016-3, 52485-9, 3023-7, 07920-3 ####[facility] LABORATORYCLIA [id number] [address] [place] FASTING TIME Normal [facility] Comment on above: Order Comment: Rhina mason Type: BLOOD SPECIMENOrdering Facility: [facility] Address: [address] [place] [address] Result Comment: Unkn own Performed By: #### 3 016-3, 03686-3, 3024-7, 90264-9 ####[facility] LABORATORYCLIA [id number] [address] STATES [facility] Triglyceride [Mass/Vol] 49 mg/dL Normal <150 [facility] Comment on above: Order Comment: Specrobson isabella Type: BLOOD SPECIMENOrdering Facility: [facility] Address: [address] [place] [address] Result Comment: <150 mg/dL, Normal 150-199 mg/dL, Borderline high 200-499 mg/dL, High >499 mg/dL, Very high Performed By: #### 3 016-3, 89509-9, 3024-7, 53527-3 ####[facility] LABORATORYCLIA [id number] [address] [place] PT panel Coag (PPP)on 2023 INR Coag (PPP) [Relative time] 1.3 {INR} Normal 0.9-1.3 [facility] Comment on above: Order Comment: Rhina mason Type: BLOOD SPECIMENOrdering Facility: [facility] Address: [address] [place] [address] Result Comment: Mayra min K Antagonist (VKA) Therapeutic Range: INR 2 to 3 (Target INR of 2.5) Note: For patients treated with VKA drugs, such as warfarin, the [employer] College [employer] 2012 Guideline recommends [...] Chest 2012, 141:7S-47S Daren RA, et al. [facility] 2017, 70: 252-289 Performed By: #### 3 4528-0 ####[facility] LABORATORYCLIA [id number] [place] [address] [place] PT Coag (PPP) [Time] 13.2 s High 9.7-13.0 [facility] Comment on above: Order Comment: Speci men Type: BLOOD SPECIMENOrdering Facility: [facility] Address: [address] [place] [address] Performed By: #### 3 4528-0 ####[facility] LABORATORYCLIA [id number] [place] [id number] [place] T4 Free SerPl-mCncon 024 Free T4 [Mass/Vol] 1.3 ng/dL Normal 0.9-1.7 [facility] Comment on above: Order Comment: Speci men Type: BLOOD SPECIMENOrdering Facility: [facility] Address: [address] [place] [address] Performed By: #### 3 016-3, 61358-0, 3024-7, 12689-3 ####[facility] LABORATORYCLIA [id number] [address] [place] TSH SerPl-aCncon 06-10-2024 TSH Qn 1.620 m[IU]/L Normal 0.270-4.200 [facility] Comment on above: Order Comment: Speci men Type: BLOOD SPECIMENOrdering Facility: [facility] Address: [address] [place] [address] Performed By: #### 3 016-3, 87380-5, 3024-7, 34323-9 ####[facility] LABORATORYCLIA [id number] [place] [id number] [place] 3606-04-2024 36 Normal [facility] 3606-01-2024 36 [facility] Progress Noteon 05-22-2024 Progress Note Normal [facility] PT Coag (Bld) [Time]on 05-21 INR Coag (PPP) [Relative time] 2.8 {INR} Abnormal 0.9 - 1.1 [facility] Interpretation and review of laboratory results Abnormal [facility] Progress Noteon 05-21-2024 Progress Note Normal [facility] Progress Note INR reported on yoan y Christin with [facility]. Christin can be reached at [phone] with questions. Normal [facility] Protime-INRon 05-21-2024 PT Coag (Bld) [Time] 33.9 s Abnormal 9.0 - 12.0 [facility] Heart TransthoracicOrdere d By: Davian Landrum on 05-14-2024 Ao Root [facility] 1.63 cm[facility]2 [facility] Work Phone: Aortic Arch 2.6 cm [facility] Work Phone: Aortic Root 2.8 cm [facility] Work Phone: Aortic Sinus Valsalva 2.8 cm [facility] Work Phone: Aortic Sinus Valsalva Index 1.63 cm/m2 [facility] Work Phone: Ascending Aorta 2.7 cm [facility] Work Phone: Ascending Aorta Index 1.57 cm/m2 [facility] Work Phone: AV Area by Peak Velocity 1.4 cm2 [facility] Work Phone: AV Area by VTI 1.4 cm2 [facility] Work Phone: AV Mean Gradient 3 mmHg [facility] Work Phone: AV Mean Velocity 0.9 m/s [facility] Work Phone: AV Peak Gradient 7 mmHg [facility] Work Phone: AV Peak Velocity 1.3 m/s [facility] Work Phone: AV Velocity Ratio 0.62 [facility] Work Phone: AV VTI 30 cm [facility] [employer] Work Phone: [phone] POLA/BSA Peak Velocity 0.8 cm2/m2 [facility] [employer] Work Phone: [phone] POLA/BSA VTI 0.8 cm2/m2 [facility] [employer] Work Phone: [phone] E/E' Lateral 14 [facility] [employer] Work Phone: E/E' Ratio (Averaged) 18 [facility] [employer] Work Phone: [phone] E/E' Septal 22 [facility] [employer] Work Phone: EF BP 61 % 55 - 100 % [facility] [employer] Work Phone: Est. RA Pressure 3 mmHg [facility] Work Phone: [phone] Fractional Shortening 2D 30 % 28 - 44 % [facility] [employer] Phone: [phone] Global Longitudinal Strain -15.3 % [facility] [employer] Phone: Interpretation and review of laboratory results Abnormal [facility] [employer] Phone: [phone] IVC Diameter 1.8 cm [facility] [employer] Phone: [phone] IVSd 1 cm Abnormal 0.6 - 0.9 cm [facility] [employer] Phone: [phone] LA Diameter 4.1 cm [facility] [employer] Phone: [phone] LA Size Index 2.38 cm/m2 [facility] Work Phone: LA Volume 2C 63 mL Abnormal 22 - 52 mL [facility] [employer] Work Phone: [phone] LA Volume 4C 80 mL Abnormal 22 - 52 mL [facility] [employer] Work Phone: LA Volume A/L 76 mL [place] [employer] Work Phone: LA Volume BP 72 mL Abnormal 22 - 52 mL [facility] [employer] Phone: LA Volume Index 2C 37 mL/m2 Abnormal 16 - 34 mL/m2 [facility] [employer] Phone: LA Volume Index 4C 47 mL/m2 Abnormal 16 - 34 mL/m2 [facility] [employer] Phone: LA Volume Index A/L 44 mL/m2 16 - 34 mL/m2 [facility] Work Phone: [phone] LA Volume Index BP 42 ml/m2 Abnormal 16 - 34 ml/m2 [facility] Work Phone: [phone] LA/AO Root Ratio 1.46 [facility] Work Phone: [phone] LV E' Lateral Velocity 11 cm/s [facility] Work Phone: [phone] LV E' Septal Velocity 7 cm/s [facility] Work Phone: LV EDV A2C 45 mL [facility] Work [phone] LV EDV A4C 48 mL [facility] Work Phone: LV EDV BP 47 mL Abnormal 56 - 104 mL [facility] Work Phone: LV EDV Index A2C 26 mL/m2 [facility] Work Phone: LV EDV Index A4C 28 mL/m2 [facility] Work Phone: LV EDV Index BP 27 mL/m2 [facility] Work Phone: [phone] LV Ejection Fraction A2C 68 % [facility] Work Phone: LV Ejection Fraction A4C 55 % [facility] Work [phone] LV ESV A2C 14 mL [facility] Work Phone: LV ESV A4C 21 mL [facility] Work Phone: LV ESV BP 18 mL Abnormal 19 - 49 mL [facility] Work Phone: LV ESV Index A2C 8 mL/m2 [facility] Work Phone: [phone] LV ESV Index A4C 12 mL/m2 [facility] Work Phone: LV ESV Index BP 10 mL/m2 [facility] Work Phone: LV Mass 2D 142.5 g 67 - 162 g [facility] Work Phone: LV Mass 2D Index 82.8 g/m2 43 - 95 g/m2 [facility] Work Phone: LV RWT Ratio 0.47 [facility] [employer] Work Phone: LVIDd 4.3 cm 3.9 - 5.3 cm [facility] [employer] Work Phone: LVIDd Index 2.5 cm/m2 [facility] [employer] Work Phone: [phone] LVIDs 3 cm [facility] [employer] Work Phone: [phone] LVIDs Index 1.74 cm/m2 [facility] [employer] Work Phone: [phone] LVOT Area 2.5 cm2 [facility] [employer] Work Phone: [phone] LVOT Cardiac Output 3.2 liter/mi nut e [facility] [employer] Work Phone: [phone] LVOT Diameter 1.8 cm [facility] [employer] Work Phone: [phone] LVOT Mean Gradient 1 mmHg [facility] [employer] Work Phone: [phone] LVOT Peak Gradient 2 mmHg [facility] [employer] Work Phone: [phone] LVOT Peak Velocity 0.8 m/s [facility] [employer] Work Phone: [phone] LVOT Stroke Volume Index 25.1 mL/m2 [facility] [employer] Work Phone: [phone] LVOT SV 43.2 ml [facility] [employer] Work Phone: [phone] LVOT VTI 17 cm [facility] [employer] Work Phone: [phone] LVOT:AV VTI Index 0.57 [facility] [employer] Work Phone: [phone] LVPWd 1 cm Abnormal 0.6 - 0.9 cm [facility] [employer] Work Phone: [phone] MV A Velocity 0.41 m/s [facility] Work Phone: [phone] MV Area by PHT 3.3 cm2 [facility] Work Phone: MV Area by VTI 1.2 cm2 [facility] Work Phone: MV E Velocity 1.54 m/s [facility] Work Phone: [phone] MV E Wave Deceleration Time 180.9 ms [facility] [employer] Work Phone: [phone] MV E/A 3.76 [facility] Work Phone: MV Max Velocity 1.7 m/s [facility] Work Phone: [phone] MV Mean Gradient 4 mmHg [facility] Work Phone: [phone] MV Mean Velocity 0.9 m/s [facility] Work Phone: [phone] MV Peak Gradient 11 mmHg [facility] Work Phone: [phone] MV PHT 66.9 ms [facility] Work Phone: MV VTI 35.1 cm [facility] Work Phone: [phone] MV:LVOT VTI Index 2.06 [facility] Work Phone: RA Area 4C 55.1 mL [facility] Work Phone: [phone] RV Basal Dimension 2.7 cm [facility] Work Phone: [phone] RV Free Wall Peak S' 11 cm/s [facility] Work Phone: [phone] RV Longitudinal Dimension 4.9 cm [facility] Work Phone: [phone] RV Mid Dimension 2.1 cm [facility] Work Phone: [phone] RVSP 54 mmHg [facility] Work Phone: [phone] Sinotubular Junction 2.7 cm [facility] Work Phone: [phone] TAPSE 1.5 cm Abnormal 1.7 cm [facility] Work Phone: [phone] TR Max Velocity 3.56 m/s [facility] Work Phone: TR Peak Gradient 51 mmHg [facility] Work Phone: TR Peak Velocity PISA 3.6 m/s [facility] Work Phone: TR VTI 120.8 cm [facility] Work Phone: TV EROA 0.2 cm2 [facility] Work Phone: [phone] TV Nyquist Velocity 39 cm/s [facility] Work Phone: [facility] Work Phone: US Heart Transthoracicon 10-2024 There is a 1.3 x 2.1 cm [...] time] 2.7 {INR} Abnormal 0.9 - 1.1 [facility] Interpretation and review of laboratory results Abnormal [facility] Progress Noteon 05-09-2024 Progress Note Graciela from [facility] call ed in results. Normal [facility] Progress Note Normal [facility] Protime-INRon 05-09-2024 PT Coag (Bld) [Time] 32.1 s Abnormal 9.0 - 12.0 [facility] PT Coag (Bld) [Time]on 05-01 INR Coag (PPP) [Relative time] 2.7 {INR} Abnormal 0.9 - 1.1 [facility] Interpretation and review of laboratory results Abnormal [facility] Progress Noteon 05-01-2024 Progress Note Normal [facility] Progress Note Tia- [facility]- [phone] Normal [facility] Protime-INRon 05-01-2024 PT Coag (Bld) [Time] 32.4 s Abnormal 9.0 - 12.0 [facility] 36on 04-27-2024 36 Pt requested refill on warfarin 5mg. Sent to [facility]. Receipt confirmed by pharmacy. Normal [facility] Progress Noteon 04-27-2024 Progress Note Normal [facility] Progress Note Tia- [facility]- [phone] Normal [facility] Progress Noteon 04-25-2024 Progress Note Normal [facility] Progress Noteon 04-23-2024 Progress Note Normal [facility] Progress Note [facility] called any questions or concerns [phone]. Normal [facility] PT Coag (Bld) [Time]on 04-19 INR Coag (PPP) [Relative time] 2.1 {INR} Abnormal 0.9 - 1.1 [facility] Interpretation and review of laboratory results Abnormal [facility] Progress Noteon 04-19-2024 Progress Note Normal [facility] Progress Note Graciela with [facility] repo rts INR on Graciela can be reached at [phone] with any questions. Normal [facility] Protime-INRon 04-19-2024 PT Coag (Bld) [Time] 24.9 s Abnormal 9.0 - 12.0 [facility] Progress Noteon 04-16-2024 Progress Note Edward [facility]- [phone] Normal [facility] Progress Note Normal [facility] Progress Noteon 04-14-2024 Progress Note Placed new order for POCT INR, [facility] had not received. Normal [facility] [id number] 04-13-2024 [id number] Normal [facility] APTTon 04-13-2024 aPTT Coag (Bld) [Time] 132.2 s Critically high 20.0-30. 5 [facility] Comment on above: Result Comment: BUBBA Garcia COMMENTS:NOTE: The therapeutic time for Heparin anticoagulation, based on Xa activity inhibition, is an APTT of 46-80 seconds. Performed By: #### L [id number], [id number] ####Health Information Specialist: VELMA VALADEZ ([phone])[facility] ([facility])[address] [place] [address] BASIC METABOLIC PANELon 03-19 Anion gap [Moles/Vol] 2 mmol/L Low 3-13 [facility] Comment on above: Performed By: #### L [id number] ####Health Information Specialist: EVLMA VALADEZ ([phone])[facility] ([facility])[address] [place] [address] Calcium [Mass/Vol] 9.0 mg/dL Normal 8.4-10.4 [facility] Comment on above: Performed By: #### L AB15 ####Health Information Specialist: VELMA VALADEZ ([phone])[facility] ([facility])[address] [place] [address] Chloride [Moles/Vol] 108 mmol/L High 98-107 [facility] Comment on above: Performed By: #### L [id number] ####Health Information Specialist: VELMA VALADEZ ([phone])[facility])[address] [place] [address] CO2 [Moles/Vol] 25 mmol/L Normal 22-30 [facility] Comment on above: Performed By: #### L [id number] ####Health Information Specialist: VELMA VALADEZ ([phone])[facility] [place] [address] Creatinine [Mass/Vol] 1.00 mg/dL Normal 0.52-1.04 [facility] Comment on above: Performed By: #### L AB15 ####Health Information Specialist: VELMA VALADEZ ([phone])[facility] ([facility])[address] [place] [address] [place] GLOMERULAR FILTRATION RATE ML/MIN/1.73 SQ M.PREDICTED 55.7 mL/min/1.73m*2 Low >60.0 [facility] Comment on above: Result Comment: Calc ulation based on the Chronic Kidney Disease Epidemiology Collaboration (CKD-EPI) equation refit without adjustment for race Performed By: #### L AB15 ####Health Information Specialist: VELMA VALADEZ ([phone])[facility] ([facility])[address] [place] [address] Glucose [Mass/Vol] 98 mg/dL Normal 70-100 [facility] Comment on above: Performed By: #### L AB15 ####Health Information Specialist: VELMA VALADEZ ([phone])[facility] ([facility] [place] [address] [place] Potassium [Moles/Vol] 4.3 mmol/L Normal 3.5-5.1 [facility] Comment on above: Performed By: #### L [id number] ####Health Information Specialist: VELMA VALADEZ ([phone])[facility] ([facility] [place] [address] [place] Sodium [Moles/Vol] 135 mmol/L Normal 135-145 [facility] Comment on above: Performed By: #### L [id number] ####Health Information Specialist: VELMA VALADEZ ([phone])[facility] ([facility])[address] [place] [address] [place] Urea nitrogen [Mass/Vol] 18 mg/dL High 7-17 [facility] Comment on above: Performed By: #### L [id number] ####Health Information Specialist: VELMA VALADEZ ([phone])[facility] ([facility])[address] [place], [place] [id number] [facility] Basic metabolic 1998 panelon 04-13-2024 Anion gap [Moles/Vol] 2 mmol/L Low 3 - 13 mmol/L [facility] Calcium [Mass/Vol] 9.0 mg/dL 8.4 - 10. 4 mg/dL [facility] Chloride [Moles/Vol] 108 mmol/L High 98 - 10 7 mmol/L [facility] CO2 [Moles/Vol] 25 mmol/L 22 - 30 mmol/L [facility] Creatinine [Mass/Vol] 1.00 mg/dL 0.52 - 1.04 mg/dL [facility] GFR/1.73 sq M.predicted (S/P/Bld) [Vol rate/Area] 55.7 mL/min Low - PINF [facility] Comment on above: Calculation based on the Chronic Kidney Disease Epidemiology Collaboration (CKD-EPI) equation refit without adjustment for race Glucose [Mass/Vol] 98 mg/dL 70 - 100 mg/dL [facility] Interpretation and review of laboratory results Abnormal [facility] Potassium [Moles/Vol] 4.3 mmol/L 3.5 - 5.1 mmol/L [facility] Sodium [Moles/Vol] 135 mmol/L 135 - 145 mmol/L [facility] Urea nitrogen [Mass/Vol] 18 mg/dL High 7 - 17 mg/dL [facility] CARECOORDon 04-13-2024 [facility] Normal [facility] CBC W Auto Differential pane l (Bld)on 04-13-2024 Basophils (Bld) [#/Vol] 0.0 10*3/uL 0.0 - 0.2 10*3/uL [facility] Basophils/100 WBC (Bld) 0.7 % 0.0 - 2.0 % [facility] Eosinophils (Bld) [#/Vol] 0.1 10*3/uL 0.0 - 0.5 10*3/uL [facility] Eosinophils/100 WBC (Bld) 2.6 % 0.0 - 6.0 % [facility] Erythrocyte distribution width (RBC) [Ratio] 14.5 % 11.5 - 15.0 % [facility] Hematocrit (Bld) [Volume fraction] 26.3 % Low 35.0 - 47.0 % [facility] Hemoglobin (Bld) [Mass/Vol] 8.6 g/dL Low 11.7 - 16.0 g/dL [facility] Immature granulocytes (Bld) [#/Vol] 0.0 10*3/uL NINF - 0.1 10*3/uL [facility] Immature granulocytes/100 WBC (Bld) 0.2 % 0.0 - 2.0 % [facility] Interpretation and review of laboratory results Abnormal [facility] Lymphocytes (Bld) [#/Vol] 1.4 10*3/uL 1.0 - 4.3 10*3/uL [facility] Lymphocytes/100 WBC (Bld) 33.5 % 15.0 - 45.0 % [facility] MCH (RBC) [Entitic mass] 29.8 pg 26.0 - 34.0 pg [facility] MCHC (RBC) [Mass/Vol] 32.7 % 30.5 - 36.0 % [facility] MCV (RBC) [Entitic vol] 91.0 fL 77.0 - 99.0 fL [facility] Monocytes (Bld) [#/Vol] 0.5 10*3/uL 0.0 - 0.9 10*3/uL [facility] Monocytes/100 WBC (Bld) 11.3 % 5.0 - 13.0 % [facility] Neutrophils (Bld) [#/Vol] 2.2 10*3/uL 1.8 - 7.5 10*3/uL [facility] Neutrophils/100 WBC (Bld) 51.7 % 38.0 - 82.0 % [facility] Nucleated RBC/100 WBC (Bld) [Ratio] 0.0 % [facility] Platelet mean volume (Bld) [Entitic vol] 9.4 fL 9.0 - 12.7 fL [facility] Platelets (Bld) [#/Vol] 317 10*3/uL 140 - 440 10*3/uL [facility] RBC (Bld) [#/Vol] 2.89 10*6/uL Low 3.80 - 5.2 0 10*6/uL [facility] WBC (Bld) [#/Vol] 4.2 10*3/uL 3.6 - 10.7 10*3/uL [facility] CBC WITH AUTO DIFFERENTIALon 04-13-2024 Basophils (Bld) [#/Vol] 0.0 10*3/uL Normal 0.0-0.2 [facility] Comment on above: Performed By: #### L [id number] ####Health Information Specialist: VELMA VALADEZ ([phone])[facility])[address] [place] [address] Basophils/100 WBC (Bld) 0.7 % Normal 0.0-2.0 [facility] Comment on above: Performed By: #### L [id number] ####Health Information Specialist: VELMA VALADEZ ([phone])[facility])[address] [place] [address] Eosinophils (Bld) [#/Vol] 0.1 10*3/uL Normal 0.0-0.5 [facility] Comment on above: Performed By: #### L [id number] ####Health Information Specialist: VELMA VALADEZ ([phone])[facility])[address] [place] [address] Eosinophils/100 WBC (Bld) 2.6 % Normal 0.0-6.0 [facility] Comment on above: Performed By: #### L [id number] ####Health Information Specialist: VELMA VALADEZ ([phone])[facility])[address] [place] [address] Erythrocyte distribution width (RBC) [Ratio] 14.5 % Normal 11.5-15.0 [facility] Comment on above: Performed By: #### L [id number] ####Health Information Specialist: VELMA VALADEZ ([phone])[facility])[address] [place] [address] Hematocrit (Bld) [Volume fraction] 26.3 % Low 35.0-47.0 [facility] Comment on above: Performed By: #### L [id number] ####Health Information Specialist: VELMA VALADEZ ([phone])[facility])[address] [place] [address] Hemoglobin (Bld) [Mass/Vol] 8.6 g/dL Low 11.7-16.0 [facility] Comment on above: Performed By: #### L [id number] ####Health Information Specialist: VELMA VALADEZ ([phone])[facility])[address] [place] [address] IMMATURE GRANS % 0.2 % Normal 0.0-2.0 [facility] Comment on above: Performed By: #### L [id number] ####Health Information Specialist: VELMA VALADEZ ([phone])[facility])[address] [place] [address] IMMATURE GRANS ABSOLUTE 0.0 10*3/uL Normal <0.1 [facility] Comment on above: Performed By: #### L [id number] ####Health Information Specialist: VELMA VALADEZ ([phone])[address] Lymphocytes (Bld) [#/Vol] 1.4 10*3/uL Normal 1.0-4.3 [facility] Comment on above: Performed By: #### L [id number] ####Health Information Specialist: VELMA VALADEZ ([phone])[facility])[address] [place] [address] Lymphocytes/100 WBC (Bld) 33.5 % Normal 15.0-45.0 [facility] Comment on above: Performed By: #### L [id number] ####Health Information Specialist: VELMA VALADEZ ([phone])[facility])[address] [place] [address] MCH (RBC) [Entitic mass] 29.8 pg Normal 26.0-34.0 [facility] Comment on above: Performed By: #### L [id number] ####Health Information Specialist: VELMA VALADEZ ([phone])[facility])[address] [place] [address] MCHC 32.7 % Normal 30.5-36.0 [facility] Comment on above: Performed By: #### L [id number] ####Health Information Specialist: VELMA VALADEZ ([phone])[facility] ([facility])[address] [place] [address] MCV (RBC) [Entitic vol] 91.0 fL Normal 77.0-99.0 [facility] Comment on above: Performed By: #### L [id number] ####Health Information Specialist: VELMA VALADEZ ([phone])[facility] ([facility])[address] [place] [address] Monocytes (Bld) [#/Vol] 0.5 10*3/uL Normal 0.0-0.9 [facility] Comment on above: Performed By: #### L [id number] ####Health Information Specialist: VELMA VALADEZ ([phone])[facility])[address] [place] [address] Monocytes/100 WBC (Bld) 11.3 % Normal 5.0-13.0 [facility] Comment on above: Performed By: #### L [id number] ####Health Information Specialist: VELMA VALADEZ ([phone])[facility] ([facility])[address] [place] [address] NEUTROPHILS ABSOLUTE 2.2 10*3/uL Normal 1.8-7.5 [facility] Comment on above: Performed By: #### L [id number] ####Health Information Specialist: VELMA VALADEZ ([phone])[facility] ([facility])[address] [place] [address] Neutrophils/100 WBC (Bld) 51.7 % Normal 38.0-82.0 [facility] Comment on above: Performed By: #### L [id number] ####Health Information Specialist: VELMA VALADEZ ([phone])[facility] ([facility])[address] [place] [address] NRBC 0.0 /100 WBCs Normal 0.0-2.0 [facility] Comment on above: Performed By: #### L [id number] ####Health Information Specialist: VELMA VALADEZ ([phone])[facility] ([facility])[address] [place] [address] Platelet mean volume (Bld) [Entitic vol] 9.4 fL Normal 9.0-12.7 [facility] Comment on above: Performed By: #### L [id number] ####Health Information Specialist: VELMA VALADEZ ([phone])[facility] ([facility])[address] [place] [address] Platelets (Bld) [#/Vol] 317 10*3/uL Normal 140-440 [facility] Comment on above: Performed By: #### L [id number] ####Health Information Specialist: VELMA VALADEZ ([phone])[facility] ([facility])[address] [place] [address] RBC (Bld) [#/Vol] 2.89 10*6/uL Low 3.80-5.20 [facility] Comment on above: Performed By: #### L [id number] ####Health Information Specialist: VELMA VALADEZ ([phone])[facility] ([facility])[address] [place] [address] WBC (Bld) [#/Vol] 4.2 10*3/uL Normal 3.6-10.7 [facility] Comment on above: Performed By: #### L [id number] ####Health Information Specialist: VELMA VALADEZ ([phone])[facility])[address] [place] [address] IDNon 04-13-2024 IDN Normal [facility] Laboratory - Coagulationon 0 04-13-2024 PT Coag (Bld) [Time] 24.2 s High 9.0 - 1 2.0 s [facility] Nursing Noteon 04-13-2024 Nursing Note AVS explained. Discharged patient on stable condition. Normal [facility] Nursing Note Instructed patient o n warfarin dosing, she will take 7.5mg tomorrow, and 5mg Tuesday, and then we will check INR with home care on Tuesday as instructed. Normal [facility] PROTHROMBIN TIMEon INR Coag (PPP) [Relative time] 2.3 {INR} High 0.9-1.1 [facility] Comment on above: Result Comment: [...] Myocardial Infarction Performed By: #### Weston [id number], [id number] ####Health Information Specialist: VELMA VALADEZ ([phone])[facility])[address] [place] [address] PT Coag (PPP) [Time] 24.2 s High 9.0-12.0 [facility] Comment on above: Performed By: #### Weston [id number], [id number] ####Health Information Specialist: VELMA VALADEZ ([phone])[address] PT Coag (Bld) [Time]on 04-13 INR Coag (PPP) [Relative time] 2.3 {INR} High 0.9 - 1.1 [facility] Comment on above: Recommended Anticoag ulant Therapy: [...] Interpretation and review of laboratory results Abnormal [facility] Progress Noteon 04-13-2024 Progress Note Normal [facility] Progress Note Normal [facility] Progress Note Normal [facility] aPTT Coag (Bld) [Time]Della chaudhry By: Melany Tejeda on 04-13-2024 aPTT Coag (PPP) [Time] 132.2 s Critically high 20 .0 - 30.5 s [facility] Interpretation and review of laboratory results Abnormal [facility] NOTE: The therapeuti c time for Heparin anticoagulation, based on Xa activity inhibition, is an APTT of 46-80 seconds. [facility] BASIC METABOLIC PANELon 09-2 Anion gap [Moles/Vol] 3 mmol/L Normal 3-13 [facility] Comment on above: Performed By: #### L [id number] ####Health Information Specialist: VELMA VALADEZ ([phone])[facility] ([facility])[address] [place] [address] Calcium [Mass/Vol] 9.3 mg/dL Normal 8.4-10.4 [facility] Comment on above: Performed By: #### L [id number] ####Health Information Specialist: VELMA VALADEZ ([phone])[facility] ([facility])[address] [place] [address] Chloride [Moles/Vol] 108 mmol/L High 98-107 [facility] Comment on above: Performed By: #### L [id number] ####Health Information Specialist: VELMA VALADEZ ([phone])[facility] ([facility])[address] [place] [address] CO2 [Moles/Vol] 24 mmol/L Normal 22-30 [facility] Comment on above: Performed By: #### L AB15 ####Health Information Specialist: VELMA VALADEZ ([phone])[facility])[address] [place] [address] Creatinine [Mass/Vol] 0.99 mg/dL Normal 0.52-1.04 [facility] Comment on above: Performed By: #### L [id number] ####Health Information Specialist: VELMA VALADEZ ([phone])[facility] ([facility])[address] [place] [address] [place] GLOMERULAR FILTRATION RATE ML/MIN/1.73 SQ M.PREDICTED 56.3 mL/min/1.73m*2 Low >60.0 [facility] Comment on above: Result Comment: Calc ulation based on the Chronic Kidney Disease Epidemiology Collaboration (CKD-EPI) equation refit without adjustment for race Performed By: #### L AB15 ####Health Information Specialist: VLEMA VALADEZ ([phone])[facility] ([facility])[address] [place] [address] Glucose [Mass/Vol] 101 mg/dL High 70-100 [facility] Comment on above: Performed By: #### L AB15 ####Health Information Specialist: VELMA VALADEZ ([phone])[facility] ([facility])[address] [place] [address] Potassium [Moles/Vol] 3.9 mmol/L Normal 3.5-5.1 [facility] Comment on above: Performed By: #### L AB15 ####Health Information Specialist: VELMA VALADEZ ([phone])[facility] ([facility])[address] [place] [address] Sodium [Moles/Vol] 135 mmol/L Normal 135-145 [facility] Comment on above: Performed By: #### L AB15 ####Health Information Specialist: VELMA VALADEZ ([phone])[facility] ([facility])[address] [place] [address] Urea nitrogen [Mass/Vol] 16 mg/dL Normal 7-17 [facility] Comment on above: Performed By: #### L AB15 ####Health Information Specialist: VELMA VALADEZ ([phone])[facility])[address] [place] [address] Basic metabolic 1998 panelon 04-12-2024 Anion gap [Moles/Vol] 3 mmol/L 3 - 13 mmol/L [facility] Calcium [Mass/Vol] 9.3 mg/dL 8.4 - 10. 4 mg/dL [facility] Chloride [Moles/Vol] 108 mmol/L High 98 - 10 7 mmol/L [facility] CO2 [Moles/Vol] 24 mmol/L 22 - 30 mmol/L [facility] Creatinine [Mass/Vol] 0.99 mg/dL 0.52 - 1.04 mg/dL [facility] GFR/1.73 sq M.predicted (S/P/Bld) [Vol rate/Area] 56.3 mL/min Low - PINF [facility] Comment on above: Calculation based on the Chronic Kidney Disease Epidemiology Collaboration (CKD-EPI) equation refit without adjustment for race Glucose [Mass/Vol] 101 mg/dL High 70 - 100 mg/dL [facility] Interpretation and review of laboratory results Abnormal [facility] Potassium [Moles/Vol] 3.9 mmol/L 3.5 - 5.1 mmol/L [facility] Sodium [Moles/Vol] 135 mmol/L 135 - 145 mmol/L [facility] Urea nitrogen [Mass/Vol] 16 mg/dL 7 - 17 mg/dL [facility] CARECOORDon 04-12-2024 CARECOORD Normal [facility] CBC W Auto Differential pane l (Bld)on 04-12-2024 Basophils (Bld) [#/Vol] 0.0 10*3/uL 0.0 - 0.2 10*3/uL [facility] Basophils/100 WBC (Bld) 0.5 % 0.0 - 2.0 % [facility] Eosinophils (Bld) [#/Vol] 0.1 10*3/uL 0.0 - 0.5 10*3/uL [facility] Eosinophils/100 WBC (Bld) 2.4 % 0.0 - 6.0 % [facility] Erythrocyte distribution width (RBC) [Ratio] 14.8 % 11.5 - 15.0 % [facility] Hematocrit (Bld) [Volume fraction] 28.3 % Low 35.0 - 47.0 % [facility] Hemoglobin (Bld) [Mass/Vol] 9.3 g/dL Low 11.7 - 16.0 g/dL [facility] Immature granulocytes (Bld) [#/Vol] 0.0 10*3/uL NINF - 0.1 10*3/uL [facility] Immature granulocytes/100 WBC (Bld) 0.2 % 0.0 - 2.0 % [facility] Interpretation and review of laboratory results Abnormal [facility] Lymphocytes (Bld) [#/Vol] 1.4 10*3/uL 1.0 - 4.3 10*3/uL [facility] Lymphocytes/100 WBC (Bld) 33.0 % 15.0 - 45.0 % [facility] MCH (RBC) [Entitic mass] 30.4 pg 26.0 - 34.0 pg [facility] MCHC (RBC) [Mass/Vol] 32.9 % 30.5 - 36.0 % [facility] MCV (RBC) [Entitic vol] 92.5 fL 77.0 - 99.0 fL [facility] Monocytes (Bld) [#/Vol] 0.5 10*3/uL 0.0 - 0.9 10*3/uL [facility] Monocytes/100 WBC (Bld) 11.9 % 5.0 - 13.0 % [facility] Neutrophils (Bld) [#/Vol] 2.1 10*3/uL 1.8 - 7.5 10*3/uL [facility] Neutrophils/100 WBC (Bld) 52.0 % 38.0 - 82.0 % [facility] Nucleated RBC/100 WBC (Bld) [Ratio] 0.0 % [facility] Platelet mean volume (Bld) [Entitic vol] 9.5 fL 9.0 - 12.7 fL [facility] Platelets (Bld) [#/Vol] 307 10*3/uL 140 - 440 10*3/uL [facility] RBC (Bld) [#/Vol] 3.06 10*6/uL Low 3.80 - 5.2 0 10*6/uL [facility] WBC (Bld) [#/Vol] 4.1 10*3/uL 3.6 - 10.7 10*3/uL [facility] CBC WITH AUTO DIFFERENTIALon 04-12-2024 Basophils (Bld) [#/Vol] 0.0 10*3/uL Normal 0.0-0.2 [facility] Comment on above: Performed By: #### L [id number] ####Health Information Specialist: VELMA VALADEZ ([phone])[address] Basophils/100 WBC (Bld) 0.5 % Normal 0.0-2.0 [facility] Comment on above: Performed By: #### L [id number] ####Health Information Specialist: VELMA VALADEZ ([phone])[facility])[address] [place] [address] Eosinophils (Bld) [#/Vol] 0.1 10*3/uL Normal 0.0-0.5 [facility] Comment on above: Performed By: #### L [id number] ####Health Information Specialist: VELMA VALADEZ ([phone])[address] Eosinophils/100 WBC (Bld) 2.4 % Normal 0.0-6.0 [facility] Comment on above: Performed By: #### L [id number] ####Health Information Specialist: VELMA VALADEZ ([phone])[facility])[address] [place] [address] Erythrocyte distribution width (RBC) [Ratio] 14.8 % Normal 11.5-15.0 [facility] Comment on above: Performed By: #### L [id number] ####Health Information Specialist: VELMA VALADEZ ([phone])[address] Hematocrit (Bld) [Volume fraction] 28.3 % Low 35.0-47.0 [facility] Comment on above: Performed By: #### L [id number] ####Health Information Specialist: VELMA VALADEZ ([phone])[address] Hemoglobin (Bld) [Mass/Vol] 9.3 g/dL Low 11.7-16.0 [facility] Comment on above: Performed By: #### L [id number] ####Health Information Specialist: VELMA VALADEZ ([phone])[address] IMMATURE GRANS % 0.2 % Normal 0.0-2.0 [facility] Comment on above: Performed By: #### L [id number] ####Health Information Specialist: VELMA VALADEZ ([phone])[address] IMMATURE GRANS ABSOLUTE 0.0 10*3/uL Normal <0.1 [facility] Comment on above: Performed By: #### L [id number] ####Health Information Specialist: VELMA VALADEZ ([phone])[address] [place] [address] [place] Lymphocytes (Bld) [#/Vol] 1.4 10*3/uL Normal 1.0-4.3 [facility] Comment on above: Performed By: #### L [id number] ####Health Information Specialist: VELMA VALADEZ ([phone])[facility])[address] [place] [address] Lymphocytes/100 WBC (Bld) 33.0 % Normal 15.0-45.0 [facility] Comment on above: Performed By: #### L [id number] ####Health Information Specialist: VELMA VALADEZ ([phone])[facility])[address] [place] [address] MCH (RBC) [Entitic mass] 30.4 pg Normal 26.0-34.0 [facility] Comment on above: Performed By: #### L [id number] ####Health Information Specialist: VELMA VALADEZ ([phone])[facility])[address] [place] [address] MCHC 32.9 % Normal 30.5-36.0 [facility] Comment on above: Performed By: #### L [id number] ####Health Information Specialist: VELMA VALADEZ ([phone])[facility] ([facility])[address] [place] [address] MCV (RBC) [Entitic vol] 92.5 fL Normal 77.0-99.0 [facility] Comment on above: Performed By: #### L [id number] ####Health Information Specialist: VELMA VALADEZ ([phone])[facility])[address] [place] [address] Monocytes (Bld) [#/Vol] 0.5 10*3/uL Normal 0.0-0.9 [facility] Comment on above: Performed By: #### L [id number] ####Health Information Specialist: VELMA VALADEZ ([phone])[facility])[address] [place] [address] Monocytes/100 WBC (Bld) 11.9 % Normal 5.0-13.0 [facility] Comment on above: Performed By: #### L [id number] ####Health Information Specialist: VELMA VALADEZ ([phone])[facility] ([facility])[address] [place] [address] NEUTROPHILS ABSOLUTE 2.1 10*3/uL Normal 1.8-7.5 [facility] Comment on above: Performed By: #### L [id number] ####Health Information Specialist: VELMA VALADEZ ([phone])[facility] ([facility])[address] [place] [address] Neutrophils/100 WBC (Bld) 52.0 % Normal 38.0-82.0 [facility] Comment on above: Performed By: #### L [id number] ####Health Information Specialist: VELMA VALADEZ ([phone])[facility] ([facility])[address] [place] [address] NRBC 0.0 /100 WBCs Normal 0.0-2.0 [facility] Comment on above: Performed By: #### L [id number] ####Health Information Specialist: VELMA VALADEZ ([phone])[facility] ([facility])[address] [place] [address] Platelet mean volume (Bld) [Entitic vol] 9.5 fL Normal 9.0-12.7 [facility] Comment on above: Performed By: #### L [id number] ####Health Information Specialist: VELMA VALADEZ ([phone])[facility] ([facility])[address] [place] [address] Platelets (Bld) [#/Vol] 307 10*3/uL Normal 140-440 [facility] Comment on above: Performed By: #### L [id number] ####Health Information Specialist: VELMA VALADEZ ([phone])[facility] ([facility])[address] [place] [address] RBC (Bld) [#/Vol] 3.06 10*6/uL Low 3.80-5.20 [facility] Comment on above: Performed By: #### L [id number] ####Health Information Specialist: VELMA VALADEZ ([phone])[facility])[address] [place] [address] WBC (Bld) [#/Vol] 4.1 10*3/uL Normal 3.6-10.7 [facility] Comment on above: Performed By: #### L [id number] ####Health Information Specialist: VELMA VALADEZ ([phone])[facility])[address] [place] [address] IDNon 04-12-2024 IDN Normal [facility] IDN Normal [facility] Laboratory - Coagulationon 0 04-12-2024 PT Coag (Bld) [Time] 20.3 s High 9.0 - 1 2.0 s [facility] PROTHROMBIN TIMEon INR Coag (PPP) [Relative time] 1.9 {INR} High 0.9-1.1 [facility] Comment on above: Result Comment: [...] Myocardial Infarction Performed By: #### L [id number] ####Health Information Specialist: VELMA VALADEZ ([phone])[facility] ([facility])[address] [place] [address] PT Coag (PPP) [Time] 20.3 s High 9.0-12.0 [facility] Comment on above: Performed By: #### L [id number] ####Health Information Specialist: VELMA VALADEZ ([phone])[facility])[address] [place] [address] PT Coag (Bld) [Time]on 04-12 INR Coag (PPP) [Relative time] 1.9 {INR} High 0.9 - 1.1 [facility] Comment on above: Recommended Anticoag ulant Therapy: [...] Interpretation and review of laboratory results Abnormal [facility] Progress Noteon 04-12-2024 Progress Note Normal [facility] Progress Note Normal [facility] APTTon 04-11-2024 aPTT Coag (Bld) [Time] 62.7 s High 20.0-30.5 [facility] Comment on above: Result Comment: BUBBA Garcia COMMENTS:NOTE: The therapeutic time for Heparin anticoagulation, based on Xa activity inhibition, is an APTT of 46-80 seconds. Performed By: #### L [id number] ####Health Information Specialist: VELMA VALADEZ ([phone])[facility])[address] [place] [address] aPTT Coag (Bld) [Time] 69.0 s High 20.0-30.5 [facility] Comment on above: Result Comment: BUBBA Garcia COMMENTS:NOTE: The therapeutic time for Heparin anticoagulation, based on Xa activity inhibition, is an APTT of 46-80 seconds. Performed By: #### L [id number], [id number] ####Health Information Specialist: VELMA VALADEZ ([phone])[facility] ([facility] [place] [address] BASIC METABOLIC PANELon 03-19 Anion gap [Moles/Vol] 4 mmol/L Normal 3-13 [facility] Comment on above: Performed By: #### L AB15 ####Health Information Specialist: VELMA VALADEZ ([phone])[facility] ([facility])[address] [place] [address] Calcium [Mass/Vol] 8.8 mg/dL Normal 8.4-10.4 [facility] Comment on above: Performed By: #### L AB15 ####Health Information Specialist: VELMA VALADEZ ([phone])[facility] ([facility])[address] [place] [address] Chloride [Moles/Vol] 108 mmol/L High 98-107 [facility] Comment on above: Performed By: #### L AB15 ####Health Information Specialist: VELMA VALAEDZ ([phone])[facility] ([facility])[address] [place] [address] CO2 [Moles/Vol] 22 mmol/L Normal 22-30 [facility] Comment on above: Performed By: #### L AB15 ####Health Information Specialist: VELMA VALADEZ ([phone])[facility] ([facility])[address] [place] [address] Creatinine [Mass/Vol] 1.01 mg/dL Normal 0.52-1.04 [facility] Comment on above: Performed By: #### L AB15 ####Health Information Specialist: VELMA VALADEZ ([phone])[facility] ([facility])[address] [place] [address] [place] GLOMERULAR FILTRATION RATE ML/MIN/1.73 SQ M.PREDICTED 55.0 mL/min/1.73m*2 Low >60.0 [facility] Comment on above: Result Comment: Calc ulation based on the Chronic Kidney Disease Epidemiology Collaboration (CKD-EPI) equation refit without adjustment for race Performed By: #### L AB15 ####Health Information Specialist: VELMA VALADEZ ([phone])[facility] ([facility])[address] [place] [address] [place] Glucose [Mass/Vol] 112 mg/dL High 70-100 [facility] Comment on above: Performed By: #### L AB15 ####Health Information Specialist: VELMA VALADEZ ([phone])[facility] ([facility])[address] [place] [address] Potassium [Moles/Vol] 4.0 mmol/L Normal 3.5-5.1 [facility] Comment on above: Performed By: #### L AB15 ####Health Information Specialist: VELMA VALADEZ ([phone])[facility] ([facility])[address] [place] [address] Sodium [Moles/Vol] 134 mmol/L Low 135-145 [facility] Comment on above: Performed By: #### L AB15 ####Health Information Specialist: VELMA VALADEZ ([phone])[facility] ([facility])[address] [place] [address] Urea nitrogen [Mass/Vol] 16 mg/dL Normal 7-17 [facility] Comment on above: Performed By: #### L AB15 ####Health Information Specialist: VELMA VALADEZ ([phone])[facility] ([facility])[address] [place] [address] Basic metabolic 1998 panelon 04-11-2024 Anion gap [Moles/Vol] 4 mmol/L 3 - 13 mmol/L [facility] Calcium [Mass/Vol] 8.8 mg/dL 8.4 - 10. 4 mg/dL [facility] Chloride [Moles/Vol] 108 mmol/L High 98 - 10 7 mmol/L [facility] CO2 [Moles/Vol] 22 mmol/L 22 - 30 mmol/L [facility] Creatinine [Mass/Vol] 1.01 mg/dL 0.52 - 1.04 mg/dL [facility] GFR/1.73 sq M.predicted (S/P/Bld) [Vol rate/Area] 55.0 mL/min Low - PINF [facility] Comment on above: Calculation based on the Chronic Kidney Disease Epidemiology Collaboration (CKD-EPI) equation refit without adjustment for race Glucose [Mass/Vol] 112 mg/dL High 70 - 100 mg/dL [facility] Interpretation and review of laboratory results Abnormal [facility] Potassium [Moles/Vol] 4.0 mmol/L 3.5 - 5.1 mmol/L [facility] Sodium [Moles/Vol] 134 mmol/L Low 135 - 145 mmol/L [facility] Urea nitrogen [Mass/Vol] 16 mg/dL 7 - 17 mg/dL [facility] CARECOORDon 04-11-2024 CARECOORD Normal [facility] CBC W Auto Differential pane l (Bld)on 04-11-2024 Basophils (Bld) [#/Vol] 0.0 10*3/uL 0.0 - 0.2 10*3/uL [facility] Basophils/100 WBC (Bld) 0.9 % 0.0 - 2.0 % [facility] Eosinophils (Bld) [#/Vol] 0.1 10*3/uL 0.0 - 0.5 10*3/uL [facility] Eosinophils/100 WBC (Bld) 2.0 % 0.0 - 6.0 % [facility] Erythrocyte distribution width (RBC) [Ratio] 14.8 % 11.5 - 15.0 % [facility] Hematocrit (Bld) [Volume fraction] 24.6 % Low 35.0 - 47.0 % [facility] Hemoglobin (Bld) [Mass/Vol] 8.3 g/dL Low 11.7 - 16.0 g/dL [facility] Immature granulocytes (Bld) [#/Vol] 0.0 10*3/uL NINF - 0.1 10*3/uL [facility] Immature granulocytes/100 WBC (Bld) 0.2 % 0.0 - 2.0 % [facility] Interpretation and review of laboratory results Abnormal [facility] Lymphocytes (Bld) [#/Vol] 1.4 10*3/uL 1.0 - 4.3 10*3/uL [facility] Lymphocytes/100 WBC (Bld) 31.9 % 15.0 - 45.0 % [facility] MCH (RBC) [Entitic mass] 30.5 pg 26.0 - 34.0 pg [facility] MCHC (RBC) [Mass/Vol] 33.7 % 30.5 - 36.0 % [facility] MCV (RBC) [Entitic vol] 90.4 fL 77.0 - 99.0 fL [facility] Monocytes (Bld) [#/Vol] 0.5 10*3/uL 0.0 - 0.9 10*3/uL [facility] Monocytes/100 WBC (Bld) 11.2 % 5.0 - 13.0 % [facility] Neutrophils (Bld) [#/Vol] 2.4 10*3/uL 1.8 - 7.5 10*3/uL [facility] Neutrophils/100 WBC (Bld) 53.8 % 38.0 - 82.0 % [facility] Nucleated RBC/100 WBC (Bld) [Ratio] 0.0 % [facility] Platelet mean volume (Bld) [Entitic vol] 10.0 fL 9.0 - 12.7 fL [facility] Platelets (Bld) [#/Vol] 244 10*3/uL 140 - 440 10*3/uL [facility] RBC (Bld) [#/Vol] 2.72 10*6/uL Low 3.80 - 5.2 0 10*6/uL [facility] WBC (Bld) [#/Vol] 4.5 10*3/uL 3.6 - 10.7 10*3/uL [facility] CBC WITH AUTO DIFFERENTIALon 04-11-2024 Basophils (Bld) [#/Vol] 0.0 10*3/uL Normal 0.0-0.2 [facility] Comment on above: Performed By: #### L [id number] ####Health Information Specialist: VELMA VALADEZ ([phone])[facility])[address] [place] [address] Basophils/100 WBC (Bld) 0.9 % Normal 0.0-2.0 [facility] Comment on above: Performed By: #### L [id number] ####Health Information Specialist: VELMA VALADEZ ([phone])[facility])[address] [place] [address] Eosinophils (Bld) [#/Vol] 0.1 10*3/uL Normal 0.0-0.5 [facility] Comment on above: Performed By: #### L [id number] ####Health Information Specialist: VELMA VALADEZ ([phone])[facility])[address] [place] [address] Eosinophils/100 WBC (Bld) 2.0 % Normal 0.0-6.0 [facility] Comment on above: Performed By: #### L [id number] ####Health Information Specialist: VELMA VALADEZ ([phone])[facility])[address] [place] [address] Erythrocyte distribution width (RBC) [Ratio] 14.8 % Normal 11.5-15.0 [facility] Comment on above: Performed By: #### L [id number] ####Health Information Specialist: VELMA VALADEZ ([phone])[address] Hematocrit (Bld) [Volume fraction] 24.6 % Low 35.0-47.0 [facility] Comment on above: Performed By: #### L [id number] ####Health Information Specialist: VELMA VALADEZ ([phone])[facility])[address] [place] [address] Hemoglobin (Bld) [Mass/Vol] 8.3 g/dL Low 11.7-16.0 [facility] Comment on above: Performed By: #### L [id number] ####Health Information Specialist: VELMA VALADEZ ([phone])[address] IMMATURE GRANS % 0.2 % Normal 0.0-2.0 [facility] Comment on above: Performed By: #### L [id number] ####Health Information Specialist: VELMA VALADEZ ([phone])[address] IMMATURE GRANS ABSOLUTE 0.0 10*3/uL Normal <0.1 [facility] Comment on above: Performed By: #### L [id number] ####Health Information Specialist: VELMA VALADEZ ([phone])[facility])[address] [place] [address] Lymphocytes (Bld) [#/Vol] 1.4 10*3/uL Normal 1.0-4.3 [facility] Comment on above: Performed By: #### L [id number] ####Health Information Specialist: VELMA VALADEZ ([phone])[address] Lymphocytes/100 WBC (Bld) 31.9 % Normal 15.0-45.0 [facility] Comment on above: Performed By: #### L [id number] ####Health Information Specialist: VELMA VALADEZ ([phone])[facility])[address] [place] [address] MCH (RBC) [Entitic mass] 30.5 pg Normal 26.0-34.0 [facility] Comment on above: Performed By: #### L [id number] ####Health Information Specialist: VELMA VALADEZ ([phone])[facility])[address] [place] [address] MCHC 33.7 % Normal 30.5-36.0 [facility] Comment on above: Performed By: #### L [id number] ####Health Information Specialist: VELMA VALADEZ ([phone])[facility])[address] [place] [address] MCV (RBC) [Entitic vol] 90.4 fL Normal 77.0-99.0 [facility] Comment on above: Performed By: #### L [id number] ####Health Information Specialist: VELMA VALADEZ ([phone])[facility])[address] [place] [address] Monocytes (Bld) [#/Vol] 0.5 10*3/uL Normal 0.0-0.9 [facility] Comment on above: Performed By: #### L [id number] ####Health Information Specialist: VELMA VALADEZ ([phone])[facility])[address] [place] [address] Monocytes/100 WBC (Bld) 11.2 % Normal 5.0-13.0 [facility] Comment on above: Performed By: #### L [id number] ####Health Information Specialist: VELMA VALADEZ ([phone])[facility])[address] [place] [address] NEUTROPHILS ABSOLUTE 2.4 10*3/uL Normal 1.8-7.5 [facility] Comment on above: Performed By: #### L [id number] ####Health Information Specialist: VELMA VALADEZ ([phone])[facility])[address] [place] [address] Neutrophils/100 WBC (Bld) 53.8 % Normal 38.0-82.0 [facility] Comment on above: Performed By: #### L [id number] ####Health Information Specialist: VELMA VALADEZ ([phone])[facility] ([facility])[address] [place] [address] NRBC 0.0 /100 WBCs Normal 0.0-2.0 [facility] Comment on above: Performed By: #### L [id number] ####Health Information Specialist: VELMA VALADEZ ([phone])[facility] ([facility])[address] [place] [address] Platelet mean volume (Bld) [Entitic vol] 10.0 fL Normal 9.0-12.7 [facility] Comment on above: Performed By: #### L [id number] ####Health Information Specialist: VELMA VALADEZ ([phone])[facility] ([facility])[address] [place] [address] Platelets (Bld) [#/Vol] 244 10*3/uL Normal 140-440 [facility] Comment on above: Performed By: #### L [id number] ####Health Information Specialist: VELMA VALADEZ ([phone])[facility] ([facility])[address] [place] [address] RBC (Bld) [#/Vol] 2.72 10*6/uL Low 3.80-5.20 [facility] Comment on above: Performed By: #### L [id number] ####Health Information Specialist: VELMA VALADEZ ([phone])[facility] ([facility])[address] [place] [address] WBC (Bld) [#/Vol] 4.5 10*3/uL Normal 3.6-10.7 [facility] Comment on above: Performed By: #### L [id number] ####Health Information Specialist: VELMA VALADEZ ([phone])[facility] ([facility])[address] [place] [address] [place] IDNon 04-11-2024 IDN Normal [facility] IDN Normal [facility] Laboratory - Coagulationon 0 04-11-2024 PT Coag (Bld) [Time] 20.9 s High 9.0 - 1 2.0 s [facility] No Panel Informationon 04-11 Interpretation and review of laboratory results Abnormal [facility] PROTHROMBIN TIMEon INR Coag (PPP) [Relative time] 1.9 {INR} High 0.9-1.1 [facility] Comment on above: Result Comment: [...] Myocardial Infarction Performed By: #### [place] AB320, [id number] ####Health Information Specialist: VELMA VALADEZ ([phone])[facility] ([facility])[address] [place] [address] PT Coag (PPP) [Time] 20.9 s High 9.0-12.0 [facility] Comment on above: Performed By: #### Weston AB320, [id number] ####Health Information Specialist: VELMA VALADEZ ([phone])[facility] ([facility])[address] [place] [address] PT Coag (Bld) [Time]on 04-11 INR Coag (PPP) [Relative time] 1.9 {INR} High 0.9 - 1.1 [facility] Comment on above: Recommended Anticoag ulant Therapy: [...] Infarction Progress Noteon 04-11-2024 Progress Note Normal [facility] Progress Note Normal [facility] Progress Note Normal [facility] Progress Note Normal [facility] aPTT Coag (Bld) [Time]on aPTT Coag (PPP) [Time] 62.7 s High 20.0 - 30.5 s [facility] Interpretation and review of laboratory results Abnormal [facility] NOTE: The therapeuti c time for Heparin anticoagulation, based on Xa activity inhibition, is an APTT of 46-80 seconds. [facility] aPTT Coag (PPP) [Time] 69.0 s High 20.0 - 30.5 s [facility] NOTE: The therapeuti c time for Heparin anticoagulation, based on Xa activity inhibition, is an APTT of 46-80 seconds. [facility] APTTon 04-10-2024 aPTT Coag (Bld) [Time] 59.0 s High 20.0-30.5 [facility] Comment on above: Result Comment: BUBBA Garcia COMMENTS:NOTE: The therapeutic time for Heparin anticoagulation, based on Xa activity inhibition, is an APTT of 46-80 seconds. Performed By: #### L [id number] ####Health Information Specialist: VELMA VALADEZ ([phone])[address] aPTT Coag (Bld) [Time] 77.3 s High 20.0-30.5 [facility] Comment on above: Result Comment: BUBBA Garcia COMMENTS:NOTE: The therapeutic time for Heparin anticoagulation, based on Xa activity inhibition, is an APTT of 46-80 seconds. Performed By: #### L [id number], [id number] ####Health Information Specialist: VELMA VALADEZ ([phone])[address] BASIC METABOLIC PANELon 03-19 Anion gap [Moles/Vol] 3 mmol/L Normal 3-13 [facility] Comment on above: Performed By: #### L AB15 ####Health Information Specialist: VELMA [phone])[facility] [place] [address] Calcium [Mass/Vol] 9.0 mg/dL Normal 8.4-10.4 [facility] Comment on above: Performed By: #### L AB15 ####Health Information Specialist: VELMA VALADEZ ([phone])[facility] ([facility])[address] [place] [address] [place] Chloride [Moles/Vol] 111 mmol/L High 98-107 [facility] Comment on above: Performed By: #### L AB15 ####Health Information Specialist: VELMA VALADEZ ([phone])[facility] [place] [address] CO2 [Moles/Vol] 21 mmol/L Low 22-30 [facility] Comment on above: Performed By: #### L AB15 ####Health Information Specialist: VELMA VALADEZ ([phone])[facility] ([facility])[address] [place] [address] Creatinine [Mass/Vol] 1.00 mg/dL Normal 0.52-1.04 [facility] Comment on above: Performed By: #### L AB15 ####Health Information Specialist: VELMA VALADEZ ([phone])[facility] ([facility])[address] [place] [address] [place] GLOMERULAR FILTRATION RATE ML/MIN/1.73 SQ M.PREDICTED 55.7 mL/min/1.73m*2 Low >60.0 [facility] Comment on above: Result Comment: Calc ulation based on the Chronic Kidney Disease Epidemiology Collaboration (CKD-EPI) equation refit without adjustment for race Performed By: #### L AB15 ####Health Information Specialist: VELMA VALADEZ ([phone])[facility] ([facility])[address] [place] [address] [place] Glucose [Mass/Vol] 101 mg/dL High 70-100 [facility] Comment on above: Performed By: #### L AB15 ####Health Information Specialist: VELMA [phone])[facility] ([facility])[address] [place] [address] Potassium [Moles/Vol] 3.8 mmol/L Normal 3.5-5.1 [facility] Comment on above: Performed By: #### L AB15 ####Health Information Specialist: VELMA VALADEZ ([phone])[facility] [place] [address] Sodium [Moles/Vol] 136 mmol/L Normal 135-145 [facility] Comment on above: Performed By: #### L AB15 ####Health Information Specialist: VELMA VALADEZ ([phone])[facility] [place] [address] Urea nitrogen [Mass/Vol] 15 mg/dL Normal 7-17 [facility] Comment on above: Performed By: #### L AB15 ####Health Information Specialist: VELMA VALADEZ ([phone])[facility] ([facility] [place] [address] Basic metabolic 1998 panelon 04-10-2024 Anion gap [Moles/Vol] 3 mmol/L 3 - 13 mmol/L [facility] Calcium [Mass/Vol] 9.0 mg/dL 8.4 - 10. 4 mg/dL [facility] Chloride [Moles/Vol] 111 mmol/L High 98 - 10 7 mmol/L [facility] CO2 [Moles/Vol] 21 mmol/L Low 22 - 30 mmol/L [facility] Creatinine [Mass/Vol] 1.00 mg/dL 0.52 - 1.04 mg/dL [facility] GFR/1.73 sq M.predicted (S/P/Bld) [Vol rate/Area] 55.7 mL/min Low - PINF [facility] Comment on above: Calculation based on the Chronic Kidney Disease Epidemiology Collaboration (CKD-EPI) equation refit without adjustment for race Glucose [Mass/Vol] 101 mg/dL High 70 - 100 mg/dL [facility] Interpretation and review of laboratory results Abnormal [facility] Potassium [Moles/Vol] 3.8 mmol/L 3.5 - 5.1 mmol/L [facility] Sodium [Moles/Vol] 136 mmol/L 135 - 145 mmol/L [facility] Urea nitrogen [Mass/Vol] 15 mg/dL 7 - 17 mg/dL [facility] CARECOORDon 04-10-2024 CARECOORD Normal [facility] CBC W Auto Differential pane l (Bld)on 04-10-2024 Basophils (Bld) [#/Vol] 0.0 10*3/uL 0.0 - 0.2 10*3/uL [facility] Basophils/100 WBC (Bld) 0.7 % 0.0 - 2.0 % [facility] Eosinophils (Bld) [#/Vol] 0.1 10*3/uL 0.0 - 0.5 10*3/uL [facility] Eosinophils/100 WBC (Bld) 2.1 % 0.0 - 6.0 % [facility] [facility] Erythrocyte distribution width (RBC) [Ratio] 14.7 % 11.5 - 15.0 % [facility] Hematocrit (Bld) [Volume fraction] 26.0 % Low 35.0 - 47.0 % [facility] Hemoglobin (Bld) [Mass/Vol] 8.6 g/dL Low 11.7 - 16.0 g/dL [facility] Immature granulocytes (Bld) [#/Vol] 0.0 10*3/uL NINF - 0.1 10*3/uL [facility] Immature granulocytes/100 WBC (Bld) 0.2 % 0.0 - 2.0 % [facility] Interpretation and review of laboratory results Abnormal [facility] Lymphocytes (Bld) [#/Vol] 1.4 10*3/uL 1.0 - 4.3 10*3/uL [facility] Lymphocytes/100 WBC (Bld) 32.9 % 15.0 - 45.0 % [facility] MCH (RBC) [Entitic mass] 30.1 pg 26.0 - 34.0 pg [facility] MCHC (RBC) [Mass/Vol] 33.1 % 30.5 - 36.0 % [facility] MCV (RBC) [Entitic vol] 90.9 fL 77.0 - 99.0 fL [facility] Monocytes (Bld) [#/Vol] 0.6 10*3/uL 0.0 - 0.9 10*3/uL [facility] Monocytes/100 WBC (Bld) 13.6 % High 5.0 - 13.0 % [facility] Neutrophils (Bld) [#/Vol] 2.1 10*3/uL 1.8 - 7.5 10*3/uL [facility] Neutrophils/100 WBC (Bld) 50.5 % 38.0 - 82.0 % [facility] Nucleated RBC/100 WBC (Bld) [Ratio] 0.0 % [facility] Platelet mean volume (Bld) [Entitic vol] 10.0 fL 9.0 - 12.7 fL [facility] Platelets (Bld) [#/Vol] 238 10*3/uL 140 - 440 10*3/uL [facility] RBC (Bld) [#/Vol] 2.86 10*6/uL Low 3.80 - 5.2 0 10*6/uL [facility] WBC (Bld) [#/Vol] 4.3 10*3/uL 3.6 - 10.7 10*3/uL [facility] CBC WITH AUTO DIFFERENTIALon 04-10-2024 Basophils (Bld) [#/Vol] 0.0 10*3/uL Normal 0.0-0.2 [facility] Comment on above: Performed By: #### L [id number] ####Health Information Specialist: VELMA VALADEZ ([phone])[facility])[address] [place] [address] Basophils/100 WBC (Bld) 0.7 % Normal 0.0-2.0 [facility] Comment on above: Performed By: #### L [id number] ####Health Information Specialist: VELMA VALADEZ ([phone])[facility] ([facility])[address] [place] [address] Eosinophils (Bld) [#/Vol] 0.1 10*3/uL Normal 0.0-0.5 [facility] Comment on above: Performed By: #### L [id number] ####Health Information Specialist: VELMA VALADEZ ([phone])[facility])[address] [place] [address] [place] Eosinophils/100 WBC (Bld) 2.1 % Normal 0.0-6.0 [facility] Comment on above: Performed By: #### L [id number] ####Health Information Specialist: VELMA VALADEZ ([phone])[facility])[address] [place] [address] Erythrocyte distribution width (RBC) [Ratio] 14.7 % Normal 11.5-15.0 [facility] Comment on above: Performed By: #### L [id number] ####Health Information Specialist: VELMA VALADEZ ([phone])[facility])[address] [place] [address] Hematocrit (Bld) [Volume fraction] 26.0 % Low 35.0-47.0 [facility] Comment on above: Performed By: #### L [id number] ####Health Information Specialist: VELMA VALADEZ ([phone])[facility])[address] [place] [address] Hemoglobin (Bld) [Mass/Vol] 8.6 g/dL Low 11.7-16.0 [facility] Comment on above: Performed By: #### L [id number] ####Health Information Specialist: VELMA VALADEZ ([phone])[facility] ([facility])[address] [place] [address] IMMATURE GRANS % 0.2 % Normal 0.0-2.0 [facility] Comment on above: Performed By: #### L [id number] ####Health Information Specialist: VELMA VALADEZ ([phone])[facility])[address] [place] [address] IMMATURE GRANS ABSOLUTE 0.0 10*3/uL Normal <0.1 [facility] Comment on above: Performed By: #### L [id number] ####Health Information Specialist: VELMA VALADEZ ([phone])[facility])[address] [place] [address] Lymphocytes (Bld) [#/Vol] 1.4 10*3/uL Normal 1.0-4.3 [facility] Comment on above: Performed By: #### L [id number] ####Health Information Specialist: VELMA VALADEZ ([phone])[facility])[address] [place] [address] Lymphocytes/100 WBC (Bld) 32.9 % Normal 15.0-45.0 [facility] Comment on above: Performed By: #### L [id number] ####Health Information Specialist: VELMA VALADEZ ([phone])[facility])[address] [place] [address] MCH (RBC) [Entitic mass] 30.1 pg Normal 26.0-34.0 [facility] Comment on above: Performed By: #### L [id number] ####Health Information Specialist: VELMA VALADEZ ([phone])[facility])[address] [place] [address] MCHC 33.1 % Normal 30.5-36.0 [facility] Comment on above: Performed By: #### L [id number] ####Health Information Specialist: VELMA VALADEZ ([phone])[facility])[address] [place] [address] MCV (RBC) [Entitic vol] 90.9 fL Normal 77.0-99.0 [facility] Comment on above: Performed By: #### L [id number] ####Health Information Specialist: VELMA VALADEZ ([phone])[facility])[address] [place] [address] Monocytes (Bld) [#/Vol] 0.6 10*3/uL Normal 0.0-0.9 [facility] Comment on above: Performed By: #### L [id number] ####Health Information Specialist: VELMA VALADEZ ([phone])[facility])[address] [place] [address] Monocytes/100 WBC (Bld) 13.6 % High 5.0-13.0 [facility] Comment on above: Performed By: #### L [id number] ####Health Information Specialist: VELMA VALADEZ ([phone])[facility])[address] [place] [address] NEUTROPHILS ABSOLUTE 2.1 10*3/uL Normal 1.8-7.5 [facility] Comment on above: Performed By: #### L [id number] ####Health Information Specialist: VELMA VALADEZ ([phone])[facility] ([facility])[address] [place] [address] Neutrophils/100 WBC (Bld) 50.5 % Normal 38.0-82.0 [facility] Comment on above: Performed By: #### L [id number] ####Health Information Specialist: VELMA VALADEZ ([phone])[facility] ([facility])[address] [place] [address] NRBC 0.0 /100 WBCs Normal 0.0-2.0 [facility] Comment on above: Performed By: #### L [id number] ####Health Information Specialist: VELMA VALADEZ ([phone])[facility] ([facility])[address] [place] [address] Platelet mean volume (Bld) [Entitic vol] 10.0 fL Normal 9.0-12.7 [facility] Comment on above: Performed By: #### L [id number] ####Health Information Specialist: VELMA VALADEZ ([phone])[facility] ([facility])[address] [place] [address] Platelets (Bld) [#/Vol] 238 10*3/uL Normal 140-440 [facility] Comment on above: Performed By: #### L [id number] ####Health Information Specialist: VELMA VALADEZ ([phone])[facility] ([facility])[address] [place] [address] RBC (Bld) [#/Vol] 2.86 10*6/uL Low 3.80-5.20 [facility] Comment on above: Performed By: #### L [id number] ####Health Information Specialist: VELMA VALADEZ ([phone])[facility] ([facility])[address] [place] [address] WBC (Bld) [#/Vol] 4.3 10*3/uL Normal 3.6-10.7 [facility] Comment on above: Performed By: #### L [id number] ####Health Information Specialist: VELMA VALADEZ ([phone])[facility])[address] [place] [address] [place] IDNon 04-10-2024 IDN Normal [facility] Laboratory - Coagulationon 0 04-10-2024 PT Coag (Bld) [Time] 17.7 s High 9.0 - 1 2.0 s [facility] No Panel Informationon 04-10 Interpretation and review of laboratory results Abnormal [facility] PROTHROMBIN TIMEon INR Coag (PPP) [Relative time] 1.6 {INR} High 0.9-1.1 [facility] Comment on above: Result Comment: [...] Myocardial Infarction Performed By: #### Weston [id number], [id number] ####Health Information Specialist: VELMA VALADEZ ([phone])[facility])[address] [place] [address] PT Coag (PPP) [Time] 17.7 s High 9.0-12.0 [facility] Comment on above: Performed By: #### Weston [id number], [id number] ####Health Information Specialist: VELMA VALADEZ ([phone])[facility])[address] [place] [address] PT Coag (Bld) [Time]on 04-10 INR Coag (PPP) [Relative time] 1.6 {INR} High 0.9 - 1.1 [facility] Comment on above: Recommended Anticoag ulant Therapy: [...] Infarction Progress Noteon 04-10-2024 Progress Note Normal [facility] Progress Note Nutrition update completed. Chart reviewed. Patient to be monitored and followed by the diet product technician. Jessica Doran, DT Normal [facility] Progress Note Normal [facility] aPTT Coag (Bld) [Time]on aPTT Coag (PPP) [Time] 59.0 s High 20.0 - 30.5 s [facility] Interpretation and review of laboratory results Abnormal [facility] NOTE: The therapeuti c time for Heparin anticoagulation, based on Xa activity inhibition, is an APTT of 46-80 seconds. [facility] aPTT Coag (PPP) [Time] 77.3 s High 20.0 - 30.5 s [facility] NOTE: The therapeuti c time for Heparin anticoagulation, based on Xa activity inhibition, is an APTT of 46-80 seconds. [facility] APTTon 04-09-2024 aPTT Coag (Bld) [Time] 58.9 s High 20.0-30.5 [facility] Comment on above: Result Comment: BUBBA Garcia COMMENTS:NOTE: The therapeutic time for Heparin anticoagulation, based on Xa activity inhibition, is an APTT of 46-80 seconds. Performed By: #### L [id number] ####Health Information Specialist: VELMA VALADEZ ([phone])[address] aPTT Coag (Bld) [Time] 64.6 s High 20.0-30.5 [facility] Comment on above: Result Comment: BUBBA Garcia COMMENTS:NOTE: The therapeutic time for Heparin anticoagulation, based on Xa activity inhibition, is an APTT of 46-80 seconds. Performed By: #### L [id number] ####Health Information Specialist: VELMA VALADEZ ([phone])[facility])[address] [place] [address] aPTT Coag (Bld) [Time] 82.3 s High 20.0-30.5 [facility] Comment on above: Result Comment: BUBBA R COMMENTS:NOTE: The therapeutic time for Heparin anticoagulation, based on Xa activity inhibition, is an APTT of 46-80 seconds. Performed By: #### L [id number], [id number] ####Health Information Specialist: VELMA VALADEZ ([phone])[facility] ([facility])[address] [place] [address] BASIC METABOLIC PANELon 03-19 Anion gap [Moles/Vol] 5 mmol/L Normal 3-13 [facility] Comment on above: Performed By: #### L AB15 ####Health Information Specialist: VELMA VALADEZ ([phone])[facility] ([facility])[address] [place] [address] Calcium [Mass/Vol] 8.9 mg/dL Normal 8.4-10.4 [facility] Comment on above: Performed By: #### L AB15 ####Health Information Specialist: VELMA VALADEZ ([phone])[facility] ([facility])[address] [place] [address] Chloride [Moles/Vol] 116 mmol/L High 98-107 [facility] Comment on above: Performed By: #### L AB15 ####Health Information Specialist: VELMA VALADEZ ([phone])[facility] ([facility])[address] [place] [address] CO2 [Moles/Vol] 16 mmol/L Low 22-30 [facility] Comment on above: Performed By: #### L AB15 ####Health Information Specialist: VELMA VALADEZ ([phone])[facility] ([facility])[address] [place] [address] Creatinine [Mass/Vol] 0.93 mg/dL Normal 0.52-1.04 [facility] Comment on above: Performed By: #### L AB15 ####Health Information Specialist: VELMA VALADEZ ([phone])[facility] ([facility])[address] [place] [address] GLOMERULAR FILTRATION RATE ML/MIN/1.73 SQ M.PREDICTED 60.7 mL/min/1.73m*2 Normal >60.0 [facility] Comment on above: Result Comment: Calc ulation based on the Chronic Kidney Disease Epidemiology Collaboration (CKD-EPI) equation refit without adjustment for race Performed By: #### L AB15 ####Health Information Specialist: VELMA VALADEZ ([phone])[facility] ([facility])[address] [place] [address] Glucose [Mass/Vol] 119 mg/dL High 70-100 [facility] Comment on above: Performed By: #### L AB15 ####Health Information Specialist: VELMA VALADEZ ([phone])[facility])[address] [place] [address] Potassium [Moles/Vol] 4.4 mmol/L Normal 3.5-5.1 [facility] Comment on above: Performed By: #### L AB15 ####Health Information Specialist: VELMA VALADEZ ([phone])[facility] ([facility])[address] [place] [address] Sodium [Moles/Vol] 136 mmol/L Normal 135-145 [facility] Comment on above: Performed By: #### L AB15 ####Health Information Specialist: VELMA VALADEZ ([phone])[facility])[address] [place] [address] Urea nitrogen [Mass/Vol] 16 mg/dL Normal 7-17 [facility] Comment on above: Performed By: #### L AB15 ####Health Information Specialist: VELMA VALADEZ ([phone])[facility])[address] [place] [address] Basic metabolic 1998 panelon 04-09-2024 Anion gap [Moles/Vol] 5 mmol/L 3 - 13 mmol/L [facility] Calcium [Mass/Vol] 8.9 mg/dL 8.4 - 10. 4 mg/dL [facility] Chloride [Moles/Vol] 116 mmol/L High 98 - 10 7 mmol/L [facility] CO2 [Moles/Vol] 16 mmol/L Low 22 - 30 mmol/L [facility] Creatinine [Mass/Vol] 0.93 mg/dL 0.52 - 1.04 mg/dL [facility] GFR/1.73 sq M.predicted (S/P/Bld) [Vol rate/Area] 60.7 mL/min - PINF [facility] Comment on above: Calculation based on the Chronic Kidney Disease Epidemiology Collaboration (CKD-EPI) equation refit without adjustment for race Glucose [Mass/Vol] 119 mg/dL High 70 - 100 mg/dL [facility] Interpretation and review of laboratory results Abnormal [facility] Potassium [Moles/Vol] 4.4 mmol/L 3.5 - 5.1 mmol/L [facility] Sodium [Moles/Vol] 136 mmol/L 135 - 145 mmol/L [facility] Urea nitrogen [Mass/Vol] 16 mg/dL 7 - 17 mg/dL [facility] CARECOORDon 04-09-2024 [facility] Normal [facility] CBC W Auto Differential pane l (Bld)on 04-09-2024 Basophils (Bld) [#/Vol] 0.0 10*3/uL 0.0 - 0.2 10*3/uL [facility] Basophils/100 WBC (Bld) 0.6 % 0.0 - 2.0 % [facility] Eosinophils (Bld) [#/Vol] 0.1 10*3/uL 0.0 - 0.5 10*3/uL [facility] Eosinophils/100 WBC (Bld) 0.9 % 0.0 - 6.0 % [facility] Erythrocyte distribution width (RBC) [Ratio] 14.8 % 11.5 - 15.0 % [facility] Hematocrit (Bld) [Volume fraction] 28.2 % Low 35.0 - 47.0 % [facility] Hemoglobin (Bld) [Mass/Vol] 9.0 g/dL Low 11.7 - 16.0 g/dL [facility] Immature granulocytes (Bld) [#/Vol] 0.0 10*3/uL NINF - 0.1 10*3/uL [facility] Immature granulocytes/100 WBC (Bld) 0.4 % 0.0 - 2.0 % [facility] Interpretation and review of laboratory results Abnormal [facility] Lymphocytes (Bld) [#/Vol] 2.2 10*3/uL 1.0 - 4.3 10*3/uL [facility] Lymphocytes/100 WBC (Bld) 31.2 % 15.0 - 45.0 % [facility] MCH (RBC) [Entitic mass] 29.8 pg 26.0 - 34.0 pg [facility] MCHC (RBC) [Mass/Vol] 31.9 % 30.5 - 36.0 % [facility] MCV (RBC) [Entitic vol] 93.4 fL 77.0 - 99.0 fL [facility] Monocytes (Bld) [#/Vol] 0.7 10*3/uL 0.0 - 0.9 10*3/uL [facility] Monocytes/100 WBC (Bld) 10.7 % 5.0 - 13.0 % [facility] Neutrophils (Bld) [#/Vol] 3.9 10*3/uL 1.8 - 7.5 10*3/uL [facility] Neutrophils/100 WBC (Bld) 56.2 % 38.0 - 82.0 % [facility] Nucleated RBC/100 WBC (Bld) [Ratio] 0.0 % [facility] Platelet mean volume (Bld) [Entitic vol] 10.2 fL 9.0 - 12.7 fL [facility] Platelets (Bld) [#/Vol] 235 10*3/uL 140 - 440 10*3/uL [facility] RBC (Bld) [#/Vol] 3.02 10*6/uL Low 3.80 - 5.2 0 10*6/uL [facility] WBC (Bld) [#/Vol] 6.9 10*3/uL 3.6 - 10.7 10*3/uL [facility] CBC WITH AUTO DIFFERENTIALon 04-09-2024 Basophils (Bld) [#/Vol] 0.0 10*3/uL Normal 0.0-0.2 [facility] Comment on above: Performed By: #### L [id number] ####Health Information Specialist: VELMA VALADEZ ([phone])[facility] ([address] Basophils/100 WBC (Bld) 0.6 % Normal 0.0-2.0 [facility] Comment on above: Performed By: #### L [id number] ####Health Information Specialist: VELMA VALADEZ ([phone])[facility])[address] [place] [address] Eosinophils (Bld) [#/Vol] 0.1 10*3/uL Normal 0.0-0.5 [facility] Comment on above: Performed By: #### L [id number] ####Health Information Specialist: VELMA VALADEZ ([phone])[facility])[address] [place] [address] Eosinophils/100 WBC (Bld) 0.9 % Normal 0.0-6.0 [facility] Comment on above: Performed By: #### L [id number] ####Health Information Specialist: VELMA VALADEZ ([phone])[address] Erythrocyte distribution width (RBC) [Ratio] 14.8 % Normal 11.5-15.0 [facility] Comment on above: Performed By: #### L [id number] ####Health Information Specialist: VELMA VALADEZ ([phone])[address] Hematocrit (Bld) [Volume fraction] 28.2 % Low 35.0-47.0 [facility] Comment on above: Performed By: #### L [id number] ####Health Information Specialist: VELMA VALADEZ ([phone])[address] Hemoglobin (Bld) [Mass/Vol] 9.0 g/dL Low 11.7-16.0 [facility] Comment on above: Performed By: #### L [id number] ####Health Information Specialist: VELMA VALADEZ ([phone])[address] IMMATURE GRANS % 0.4 % Normal 0.0-2.0 [facility] Comment on above: Performed By: #### L [id number] ####Health Information Specialist: VELMA VALADEZ ([phone])[facility])[address] [place] [address] IMMATURE GRANS ABSOLUTE 0.0 10*3/uL Normal <0.1 [facility] Comment on above: Performed By: #### L [id number] ####Health Information Specialist: VELMA VALADEZ ([phone])[facility])[address] [place] [address] Lymphocytes (Bld) [#/Vol] 2.2 10*3/uL Normal 1.0-4.3 [facility] Comment on above: Performed By: #### L [id number] ####Health Information Specialist: VELMA VALADEZ ([phone])[facility])[address] [place] [address] Lymphocytes/100 WBC (Bld) 31.2 % Normal 15.0-45.0 [facility] Comment on above: Performed By: #### L [id number] ####Health Information Specialist: VELMA VALADEZ ([phone])[facility])[address] [place] [address] MCH (RBC) [Entitic mass] 29.8 pg Normal 26.0-34.0 [facility] Comment on above: Performed By: #### L [id number] ####Health Information Specialist: VELMA VALADEZ ([phone])[facility])[address] [place] [address] MCHC 31.9 % Normal 30.5-36.0 [facility] Comment on above: Performed By: #### L [id number] ####Health Information Specialist: VELMA VALADEZ ([phone])[facility])[address] [place] [address] MCV (RBC) [Entitic vol] 93.4 fL Normal 77.0-99.0 [facility] Comment on above: Performed By: #### L [id number] ####Health Information Specialist: VELMA VALADEZ ([phone])[facility])[address] [place] [address] Monocytes (Bld) [#/Vol] 0.7 10*3/uL Normal 0.0-0.9 [facility] Comment on above: Performed By: #### L [id number] ####Health Information Specialist: VELMA VALADEZ ([phone])[facility] ([facility])[address] [place] [address] Monocytes/100 WBC (Bld) 10.7 % Normal 5.0-13.0 [facility] Comment on above: Performed By: #### L [id number] ####Health Information Specialist: VELMA VALADEZ ([phone])[facility] ([facility])[address] [place] [address] NEUTROPHILS ABSOLUTE 3.9 10*3/uL Normal 1.8-7.5 [facility] Comment on above: Performed By: #### L [id number] ####Health Information Specialist: VELMA VALADEZ ([phone])[facility] ([facility])[address] [place] [address] Neutrophils/100 WBC (Bld) 56.2 % Normal 38.0-82.0 [facility] Comment on above: Performed By: #### L [id number] ####Health Information Specialist: VELMA VALADEZ ([phone])[facility] ([facility])[address] [place] [address] NRBC 0.0 /100 WBCs Normal 0.0-2.0 [facility] Comment on above: Performed By: #### L [id number] ####Health Information Specialist: VELMA VALADEZ ([phone])[facility] ([facility])[address] [place] [address] Platelet mean volume (Bld) [Entitic vol] 10.2 fL Normal 9.0-12.7 [facility] Comment on above: Performed By: #### L [id number] ####Health Information Specialist: VELMA VALADEZ ([phone])[facility] ([facility])[address] [place] [address] Platelets (Bld) [#/Vol] 235 10*3/uL Normal 140-440 [facility] Comment on above: Performed By: #### L [id number] ####Health Information Specialist: VELMA VALADEZ ([phone])[facility])[address] [place] [address] RBC (Bld) [#/Vol] 3.02 10*6/uL Low 3.80-5.20 [facility] Comment on above: Performed By: #### L [id number] ####Health Information Specialist: VELMA VALADEZ ([phone])[facility])[address] [place] [address] WBC (Bld) [#/Vol] 6.9 10*3/uL Normal 3.6-10.7 [facility] Comment on above: Performed By: #### L [id number] ####Health Information Specialist: VELMA VALADEZ ([phone])[facility])[address] [place] [address] Laboratory - Coagulationon 0 04-09-2024 PT Coag (Bld) [Time] 13.8 s High 9.0 - 1 2.0 s [facility] No Panel Informationon 04-09 Interpretation and review of laboratory results Abnormal [facility] PROTHROMBIN TIMEon INR Coag (PPP) [Relative time] 1.2 {INR} High 0.9-1.1 [facility] Comment on above: Result Comment: [...] Myocardial Infarction Performed By: #### L [id number] ####Health Information Specialist: VELMA VALADEZ ([phone])[facility] ([facility])[address] [place] [address] PT Coag (PPP) [Time] 13.8 s High 9.0-12.0 [facility] Comment on above: Performed By: #### L [id number], [id number] ####Health Information Specialist: VELMA VALADEZ ([phone])[facility] ([address] PT Coag (Bld) [Time]on 04-09 INR Coag (PPP) [Relative time] 1.2 {INR} High 0.9 - 1.1 [facility] Comment on above: Recommended Anticoag ulant Therapy: [...] Infarction Progress Noteon 04-09-2024 Progress Note Normal [facility] Progress Note Normal [facility] XR CHEST 1 VIEWon 04-09-2024 XR CHEST 1 VIEW Normal [facility] XR Chest Single viewon 04-09 Mild cardiomegaly and pulmonary venous congestion with small pleural effusions. Report Dictated on Electronically Signed By: Di Leggett MD Electronically Signed Date/Time: 04/09/2024 1:42 PM EDT [facility] Patient Name: [facility]EL CARVER RD [facility] 1940 [id number] Exam Date/Time: 04/09/2024 14:11 Procedure: XR CHEST [...] the left shoulder. No acute osseous findings. [facility] [facility] Di Leggett M D - 04/09/2024 Patient Name: [facility]EL POP [facility] 1940 [id number] Exam Date/Time: 04/09/2024 14:11 Procedure: XR CHEST [...] Electronically Signed Date/Time: 04/09/2024 1:42 PM EDT [facility] Radiology Study observation (narrative) [facility] XR Chest Single viewOrdered By: Di Leggett on 04-09-2024 [facility] Work Phone: aPTT Coag (Bld) [Time]on aPTT Coag (PPP) [Time] 58.9 s High 20.0 - 30.5 s [facility] Interpretation and review of laboratory results Abnormal [facility] NOTE: The therapeuti c time for Heparin anticoagulation, based on Xa activity inhibition, is an APTT of 46-80 seconds. [facility] aPTT Coag (PPP) [Time] 64.6 s High 20.0 - 30.5 s [facility] Interpretation and review of laboratory results Abnormal [facility] NOTE: The therapeuti c time for Heparin anticoagulation, based on Xa activity inhibition, is an APTT of 46-80 seconds. [facility] aPTT Coag (PPP) [Time] 82.3 s High 20.0 - 30.5 s [facility] NOTE: The therapeuti c time for Heparin anticoagulation, based on Xa activity inhibition, is an APTT of 46-80 seconds. [facility] APTTon 04-08-2024 aPTT Coag (Bld) [Time] 51.5 s High 20.0-30.5 [facility] Comment on above: Result Comment: BUBBA Garcia COMMENTS:NOTE: The therapeutic time for Heparin anticoagulation, based on Xa activity inhibition, is an APTT of 46-80 seconds. Performed By: #### L [id number] ####Health Information Specialist: VELMA VALADEZ ([phone])[facility])[address] [place] [address] aPTT Coag (Bld) [Time] 59.8 s High 20.0-30.5 [facility] Comment on above: Result Comment: BUBBA Garcia COMMENTS:NOTE: The therapeutic time for Heparin anticoagulation, based on Xa activity inhibition, is an APTT of 46-80 seconds. Performed By: #### L AB325 ####Health Information Specialist: VELMA VALADEZ ([phone])[facility])[address] [place] [address] aPTT Coag (Bld) [Time] 41.4 s High 20.0-30.5 [facility] Comment on above: Result Comment: BUBBA Garcia COMMENTS:NOTE: The therapeutic time for Heparin anticoagulation, based on Xa activity inhibition, is an APTT of 46-80 seconds. Performed By: #### L AB325, [id number] ####Health Information Specialist: VELMA [phone])[facility] ([facility])[address] [place] [address] BASIC METABOLIC PANELon 03-19 Anion gap [Moles/Vol] 5 mmol/L Normal 3-13 [facility] Comment on above: Performed By: #### L AB15 ####Health Information Specialist: VELMA [phone])[address] Calcium [Mass/Vol] 8.9 mg/dL Normal 8.4-10.4 [facility] Comment on above: Performed By: #### L AB15 ####Health Information Specialist: VELMA [phone])[facility] ([facility])[address] [place] [address] Chloride [Moles/Vol] 113 mmol/L High 98-107 [facility] Comment on above: Performed By: #### L AB15 ####Health Information Specialist: VELMA VALADEZ ([phone])[facility] [place] [address] CO2 [Moles/Vol] 17 mmol/L Low 22-30 [facility] Comment on above: Performed By: #### L AB15 ####Health Information Specialist: VELMA VALADEZ ([phone])[facility] ([facility])[address] [place] [address] Creatinine [Mass/Vol] 0.98 mg/dL Normal 0.52-1.04 [facility] Comment on above: Performed By: #### L AB15 ####Health Information Specialist: VELMA VALADEZ ([phone])[facility] ([facility])[address] [place] [address] GLOMERULAR FILTRATION RATE ML/MIN/1.73 SQ M.PREDICTED 57.0 mL/min/1.73m*2 Low >60.0 [facility] Comment on above: Result Comment: Calc ulation based on the Chronic Kidney Disease Epidemiology Collaboration (CKD-EPI) equation refit without adjustment for race Performed By: #### L AB15 ####Health Information Specialist: VELMA VALADEZ ([phone])[facility] ([facility])[address] [place] [address] [place] Glucose [Mass/Vol] 116 mg/dL High 70-100 [facility] Comment on above: Performed By: #### L AB15 ####Health Information Specialist: VELMA VALADEZ ([phone])[facility] ([facility])[address] [place] [address] Potassium [Moles/Vol] 4.5 mmol/L Normal 3.5-5.1 [facility] Comment on above: Performed By: #### L AB15 ####Health Information Specialist: VELMA [phone])[facility])[address] [place] [address] Sodium [Moles/Vol] 135 mmol/L Normal 135-145 [facility] Comment on above: Performed By: #### L AB15 ####Health Information Specialist: VELMA VALADEZ ([phone])[facility] ([facility])[address] [place] [address] Urea nitrogen [Mass/Vol] 18 mg/dL High 7-17 [facility] Comment on above: Performed By: #### L AB15 ####Health Information Specialist: VELMA VALADEZ ([phone])[facility] ([facility])[address] [place] [address] Basic metabolic 1998 panelon 04-08-2024 Anion gap [Moles/Vol] 5 mmol/L 3 - 13 mmol/L [facility] Calcium [Mass/Vol] 8.9 mg/dL 8.4 - 10. 4 mg/dL [facility] Chloride [Moles/Vol] 113 mmol/L High 98 - 10 7 mmol/L [facility] CO2 [Moles/Vol] 17 mmol/L Low 22 - 30 mmol/L [facility] Creatinine [Mass/Vol] 0.98 mg/dL 0.52 - 1.04 mg/dL [facility] GFR/1.73 sq M.predicted (S/P/Bld) [Vol rate/Area] 57.0 mL/min Low - PINF [facility] Comment on above: Calculation based on the Chronic Kidney Disease Epidemiology Collaboration (CKD-EPI) equation refit without adjustment for race Glucose [Mass/Vol] 116 mg/dL High 70 - 100 mg/dL [facility] Interpretation and review of laboratory results Abnormal [facility] Potassium [Moles/Vol] 4.5 mmol/L 3.5 - 5.1 mmol/L [facility] Sodium [Moles/Vol] 135 mmol/L 135 - 145 mmol/L [facility] Urea nitrogen [Mass/Vol] 18 mg/dL High 7 - 17 mg/dL [facility] CBC W Auto Differential pane l (Bld)on 04-08-2024 Basophils (Bld) [#/Vol] 0.0 10*3/uL 0.0 - 0.2 10*3/uL [facility] Basophils/100 WBC (Bld) 0.5 % 0.0 - 2.0 % [facility] Eosinophils (Bld) [#/Vol] 0.1 10*3/uL 0.0 - 0.5 10*3/uL [facility] Eosinophils/100 WBC (Bld) 0.9 % 0.0 - 6.0 % [facility] Erythrocyte distribution width (RBC) [Ratio] 14.8 % 11.5 - 15.0 % [facility] Hematocrit (Bld) [Volume fraction] 27.0 % Low 35.0 - 47.0 % [facility] Hemoglobin (Bld) [Mass/Vol] 8.6 g/dL Low 11.7 - 16.0 g/dL [facility] Immature granulocytes (Bld) [#/Vol] 0.0 10*3/uL NINF - 0.1 10*3/uL [facility] Immature granulocytes/100 WBC (Bld) 0.4 % 0.0 - 2.0 % [facility] Interpretation and review of laboratory results Abnormal [facility] Lymphocytes (Bld) [#/Vol] 1.7 10*3/uL 1.0 - 4.3 10*3/uL [facility] Lymphocytes/100 WBC (Bld) 23.3 % 15.0 - 45.0 % [facility] MCH (RBC) [Entitic mass] 30.2 pg 26.0 - 34.0 pg [facility] MCHC (RBC) [Mass/Vol] 31.9 % 30.5 - 36.0 % [facility] MCV (RBC) [Entitic vol] 94.7 fL 77.0 - 99.0 fL [facility] Monocytes (Bld) [#/Vol] 0.8 10*3/uL 0.0 - 0.9 10*3/uL [facility] Monocytes/100 WBC (Bld) 10.2 % 5.0 - 13.0 % [facility] Neutrophils (Bld) [#/Vol] 4.8 10*3/uL 1.8 - 7.5 10*3/uL [facility] Neutrophils/100 WBC (Bld) 64.7 % 38.0 - 82.0 % [facility] Nucleated RBC/100 WBC (Bld) [Ratio] 0.0 % [facility] Platelet mean volume (Bld) [Entitic vol] 10.1 fL 9.0 - 12.7 fL [facility] Platelets (Bld) [#/Vol] 223 10*3/uL 140 - 440 10*3/uL [facility] RBC (Bld) [#/Vol] 2.85 10*6/uL Low 3.80 - 5.2 0 10*6/uL [facility] WBC (Bld) [#/Vol] 7.5 10*3/uL 3.6 - 10.7 10*3/uL [facility] CBC WITH AUTO DIFFERENTIALon 04-08-2024 Basophils (Bld) [#/Vol] 0.0 10*3/uL Normal 0.0-0.2 [facility] Comment on above: Performed By: #### L [id number] ####Health Information Specialist: VELMA VALADEZ ([phone])[facility] ([facility])[address] [place] [address] Basophils/100 WBC (Bld) 0.5 % Normal 0.0-2.0 S [facility] Comment on above: Performed By: #### L [id number] ####Health Information Specialist: VELMA VALADEZ ([phone])[facility] ([facility])[address] [place] [address] Eosinophils (Bld) [#/Vol] 0.1 10*3/uL Normal 0.0-0.5 [facility] Comment on above: Performed By: #### L [id number] ####Health Information Specialist: VELMA VALADEZ ([phone])[facility] ([facility])[address] [place] [address] Eosinophils/100 WBC (Bld) 0.9 % Normal 0.0-6.0 [facility] Comment on above: Performed By: #### L [id number] ####Health Information Specialist: VELMA VALADEZ ([phone])[facility])[address] [place] [address] Erythrocyte distribution width (RBC) [Ratio] 14.8 % Normal 11.5-15.0 [facility] Comment on above: Performed By: #### L [id number] ####Health Information Specialist: VELMA [phone])[facility])[address] [place] [address] Hematocrit (Bld) [Volume fraction] 27.0 % Low 35.0-47.0 [facility] Comment on above: Performed By: #### L [id number] ####Health Information Specialist: VELMA VALADEZ ([phone])[facility])[address] [place] [address] Hemoglobin (Bld) [Mass/Vol] 8.6 g/dL Low 11.7-16.0 [facility] Comment on above: Performed By: #### L [id number] ####Health Information Specialist: VELMA VALADEZ ([phone])[facility])[address] [place] [address] IMMATURE GRANS % 0.4 % Normal 0.0-2.0 [facility] Comment on above: Performed By: #### L [id number] ####Health Information Specialist: VELMA VALADEZ ([phone])[facility])[address] [place] [address] IMMATURE GRANS ABSOLUTE 0.0 10*3/uL Normal <0.1 [facility] Comment on above: Performed By: #### L [id number] ####Health Information Specialist: VELMA VALADEZ ([phone])[facility])[address] [place] [address] Lymphocytes (Bld) [#/Vol] 1.7 10*3/uL Normal 1.0-4.3 [facility] Comment on above: Performed By: #### L [id number] ####Health Information Specialist: VELMA VALADEZ ([phone])[facility])[address] [place] [address] Lymphocytes/100 WBC (Bld) 23.3 % Normal 15.0-45.0 [facility] Comment on above: Performed By: #### L [id number] ####Health Information Specialist: VELMA VALADEZ ([phone])[facility])[address] [place] [address] MCH (RBC) [Entitic mass] 30.2 pg Normal 26.0-34.0 [facility] Comment on above: Performed By: #### L [id number] ####Health Information Specialist: VELMA VALADEZ ([phone])[facility])[address] [place] [address] MCHC 31.9 % Normal 30.5-36.0 [facility] Comment on above: Performed By: #### L [id number] ####Health Information Specialist: VELMA VALADEZ ([phone])[facility])[address] [place] [address] MCV (RBC) [Entitic vol] 94.7 fL Normal 77.0-99.0 [facility] Comment on above: Performed By: #### L [id number] ####Health Information Specialist: VELMA VALADEZ ([phone])[facility])[address] [place] [address] Monocytes (Bld) [#/Vol] 0.8 10*3/uL Normal 0.0-0.9 [facility] Comment on above: Performed By: #### L [id number] ####Health Information Specialist: VELMA VALADEZ ([phone])[facility])[address] [place] [address] Monocytes/100 WBC (Bld) 10.2 % Normal 5.0-13.0 [facility] Comment on above: Performed By: #### L [id number] ####Health Information Specialist: VELMA VALADEZ ([phone])[facility])[address] [place] [address] NEUTROPHILS ABSOLUTE 4.8 10*3/uL Normal 1.8-7.5 [facility] Comment on above: Performed By: #### L [id number] ####Health Information Specialist: VELMA VALADEZ ([phone])[facility])[address] [place] [address] Neutrophils/100 WBC (Bld) 64.7 % Normal 38.0-82.0 [facility] Comment on above: Performed By: #### L [id number] ####Health Information Specialist: VELMA VALADEZ ([phone])[facility] ([facility])[address] [place] [address] NRBC 0.0 /100 WBCs Normal 0.0-2.0 [facility] Comment on above: Performed By: #### L [id number] ####Health Information Specialist: VELMA VALADEZ ([phone])[facility] ([facility])[address] [place] [address] Platelet mean volume (Bld) [Entitic vol] 10.1 fL Normal 9.0-12.7 [facility] Comment on above: Performed By: #### L [id number] ####Health Information Specialist: VELMA VALADEZ ([phone])[facility] ([facility])[address] [place] [address] Platelets (Bld) [#/Vol] 223 10*3/uL Normal 140-440 [facility] Comment on above: Performed By: #### L [id number] ####Health Information Specialist: VELMA VALADEZ ([phone])[facility] ([facility])[address] [place] [address] RBC (Bld) [#/Vol] 2.85 10*6/uL Low 3.80-5.20 [facility] Comment on above: Performed By: #### L [id number] ####Health Information Specialist: VELMA VALADEZ ([phone])[facility] ([facility])[address] [place] [address] WBC (Bld) [#/Vol] 7.5 10*3/uL Normal 3.6-10.7 [facility] Comment on above: Performed By: #### L [id number] ####Health Information Specialist: VELMA VALADEZ ([phone])[facility])[address] [place] [address] IDNon 04-08-2024 IDN Progressing Normal [facility] - Coagulationon 0 04-08-2024 PT Coag (Bld) [Time] 11.2 s 9.0 - 1 2.0 s [facility] No Panel Informationon 04-08 [facility] PROTHROMBIN TIMEon INR Coag (PPP) [Relative time] 1.0 {INR} Normal 0.9-1.1 [facility] Comment on above: Result Comment: [...] Myocardial Infarction Performed By: #### Weston AB325, [id number] ####Health Information Specialist: VELMA VALADEZ ([phone])[address] PT Coag (PPP) [Time] 11.2 s Normal 9.0-12.0 [facility] Comment on above: Performed By: #### Weston AB325, [id number] ####Health Information Specialist: VELMA VALADEZ ([phone])[address] PT Coag (Bld) [Time]on 04-08 INR Coag (PPP) [Relative time] 1.0 {INR} 0.9 - 1.1 [facility] Comment on above: Recommended Anticoag ulant Therapy: [...] results Normal [facility] Progress Noteon 04-08-2024 Progress Note Normal [facility] [employer] [facility] Progress Note Normal [facility] aPTT Coag (Bld) [Time]on aPTT Coag (PPP) [Time] 51.5 s High 20.0 - 30.5 s [facility] Interpretation and review of laboratory results Abnormal [facility] NOTE: The therapeuti c time for Heparin anticoagulation, based on Xa activity inhibition, is an APTT of 46-80 seconds. [facility] aPTT Coag (PPP) [Time] 59.8 s High 20.0 - 30.5 s [facility] Interpretation and review of laboratory results Abnormal [facility] NOTE: The therapeuti c time for Heparin anticoagulation, based on Xa activity inhibition, is an APTT of 46-80 seconds. [facility] aPTT Coag (PPP) [Time] 41.4 s High 20.0 - 30.5 s [facility] Interpretation and review of laboratory results Abnormal [facility] NOTE: The therapeuti c time for Heparin anticoagulation, based on Xa activity inhibition, is an APTT of 46-80 seconds. [facility] APTTon 04-07-2024 aPTT Coag (Bld) [Time] 54.7 s High 20.0-30.5 [facility] Comment on above: Result Comment: BUBBA Garcia COMMENTS:NOTE: The therapeutic time for Heparin anticoagulation, based on Xa activity inhibition, is an APTT of 46-80 seconds. Performed By: #### L [id number] ####Health Information Specialist: VELMA VALADEZ ([phone])[address] aPTT Coag (Bld) [Time] 77.7 s High 20.0-30.5 [facility] Comment on above: Result Comment: BUBBA Garcia COMMENTS:NOTE: The therapeutic time for Heparin anticoagulation, based on Xa activity inhibition, is an APTT of 46-80 seconds. Performed By: #### L AB325, [id number] ####Health Information Specialist: VELMA VALADEZ ([phone])[facility])[address] [place] [address] BASIC METABOLIC PANELon 09-2 Anion gap [Moles/Vol] 4 mmol/L Normal 3-13 [facility] Comment on above: Performed By: #### L AB15 ####Health Information Specialist: VELMA [phone])[facility])[address] [place] [address] Calcium [Mass/Vol] 8.8 mg/dL Normal 8.4-10.4 [facility] Comment on above: Performed By: #### L AB15 ####Health Information Specialist: VELMA VALADEZ ([phone])[facility])[address] [place] [address] Chloride [Moles/Vol] 115 mmol/L High 98-107 [facility] Comment on above: Performed By: #### L AB15 ####Health Information Specialist: VELMA VALADEZ ([phone])[facility] ([facility])[address] [place] [address] CO2 [Moles/Vol] 17 mmol/L Low 22-30 [facility] Comment on above: Performed By: #### L AB15 ####Health Information Specialist: VELMA VALADEZ ([phone])[facility] ([facility])[address] [place] [address] Creatinine [Mass/Vol] 0.90 mg/dL Normal 0.52-1.04 [facility] Comment on above: Performed By: #### L AB15 ####Health Information Specialist: VELMA VALADEZ ([phone])[facility] ([facility])[address] [place] [address] [place] GLOMERULAR FILTRATION RATE ML/MIN/1.73 SQ M.PREDICTED 63.2 mL/min/1.73m*2 Normal >60.0 [facility] Comment on above: Result Comment: Calc ulation based on the Chronic Kidney Disease Epidemiology Collaboration (CKD-EPI) equation refit without adjustment for race Performed By: #### L AB15 ####Health Information Specialist: VELMA VALADEZ ([phone])[facility] ([facility])[address] [place] [address] [place] Glucose [Mass/Vol] 139 mg/dL High 70-100 [facility] Comment on above: Performed By: #### L AB15 ####Health Information Specialist: VELMA VALADEZ ([phone])[facility])[address] [place] [address] Potassium [Moles/Vol] 4.7 mmol/L Normal 3.5-5.1 [facility] Comment on above: Performed By: #### L AB15 ####Health Information Specialist: VELMA VALADEZ ([phone])[facility] ([facility])[address] [place] [address] Sodium [Moles/Vol] 136 mmol/L Normal 135-145 [facility] Comment on above: Performed By: #### L AB15 ####Health Information Specialist: VELMA VALADEZ ([phone])[facility] ([facility])[address] [place] [address] Urea nitrogen [Mass/Vol] 16 mg/dL Normal 7-17 [facility] Comment on above: Performed By: #### L AB15 ####Health Information Specialist: VELMA VALADEZ ([phone])[facility] ([facility])[address] [place] [address] Basic metabolic 1998 panelon 04-07-2024 Anion gap [Moles/Vol] 4 mmol/L 3 - 13 mmol/L [facility] Calcium [Mass/Vol] 8.8 mg/dL 8.4 - 10. 4 mg/dL [facility] Chloride [Moles/Vol] 115 mmol/L High 98 - 10 7 mmol/L [facility] CO2 [Moles/Vol] 17 mmol/L Low 22 - 30 mmol/L [facility] Creatinine [Mass/Vol] 0.90 mg/dL 0.52 - 1.04 mg/dL [facility] GFR/1.73 sq M.predicted (S/P/Bld) [Vol rate/Area] 63.2 mL/min - PINF [facility] Comment on above: Calculation based on the Chronic Kidney Disease Epidemiology Collaboration (CKD-EPI) equation refit without adjustment for race Glucose [Mass/Vol] 139 mg/dL High 70 - 100 mg/dL [facility] Interpretation and review of laboratory results Abnormal [facility] Potassium [Moles/Vol] 4.7 mmol/L 3.5 - 5.1 mmol/L [facility] Sodium [Moles/Vol] 136 mmol/L 135 - 145 mmol/L [facility] Urea nitrogen [Mass/Vol] 16 mg/dL 7 - 17 mg/dL [facility] CBC W Auto Differential pane l (Bld)on 04-07-2024 Basophils (Bld) [#/Vol] 0.0 10*3/uL 0.0 - 0.2 10*3/uL [facility] Basophils/100 WBC (Bld) 0.2 % 0.0 - 2.0 % [facility] Eosinophils (Bld) [#/Vol] 0.0 10*3/uL 0.0 - 0.5 10*3/uL [facility] Eosinophils/100 WBC (Bld) 0.0 % 0.0 - 6.0 % [facility] Erythrocyte distribution width (RBC) [Ratio] 14.3 % 11.5 - 15.0 % [facility] Hematocrit (Bld) [Volume fraction] 27.0 % Low 35.0 - 47.0 % [facility] Hemoglobin (Bld) [Mass/Vol] 8.6 g/dL Low 11.7 - 16.0 g/dL [facility] Immature granulocytes (Bld) [#/Vol] 0.0 10*3/uL NINF - 0.1 10*3/uL [facility] Immature granulocytes/100 WBC (Bld) 0.5 % 0.0 - 2.0 % [facility] Interpretation and review of laboratory results Abnormal [facility] [facility] Lymphocytes (Bld) [#/Vol] 0.8 10*3/uL Low 1.0 - 4.3 10*3/uL [facility] Lymphocytes/100 WBC (Bld) 19.2 % 15.0 - 45.0 % [facility] MCH (RBC) [Entitic mass] 30.1 pg 26.0 - 34.0 pg [facility] MCHC (RBC) [Mass/Vol] 31.9 % 30.5 - 36.0 % [facility] MCV (RBC) [Entitic vol] 94.4 fL 77.0 - 99.0 fL [facility] Monocytes (Bld) [#/Vol] 0.3 10*3/uL 0.0 - 0.9 10*3/uL [facility] Monocytes/100 WBC (Bld) 7.5 % 5.0 - 13.0 % [facility] Neutrophils (Bld) [#/Vol] 2.9 10*3/uL 1.8 - 7.5 10*3/uL [facility] Neutrophils/100 WBC (Bld) 72.6 % 38.0 - 82.0 % [facility] Nucleated RBC/100 WBC (Bld) [Ratio] 0.0 % [facility] Platelet mean volume (Bld) [Entitic vol] 10.5 fL 9.0 - 12.7 fL [facility] Platelets (Bld) [#/Vol] 202 10*3/uL 140 - 440 10*3/uL [facility] RBC (Bld) [#/Vol] 2.86 10*6/uL Low 3.80 - 5.2 0 10*6/uL [facility] WBC (Bld) [#/Vol] 4.0 10*3/uL 3.6 - 10.7 10*3/uL [facility] CBC WITH AUTO DIFFERENTIALon 04-07-2024 Basophils (Bld) [#/Vol] 0.0 10*3/uL Normal 0.0-0.2 [facility] Comment on above: Performed By: #### L [id number] ####Health Information Specialist: VELMA VALADEZ ([phone])[facility])[address] [place] [address] Basophils/100 WBC (Bld) 0.2 % Normal 0.0-2.0 [facility] Comment on above: Performed By: #### L [id number] ####Health Information Specialist: VELMA VALADEZ ([phone])[facility])[address] [place] [address] [place] Eosinophils (Bld) [#/Vol] 0.0 10*3/uL Normal 0.0-0.5 [facility] Comment on above: Performed By: #### L [id number] ####Health Information Specialist: VEMLA [phone])[facility])[address] [place] [address] [place] Eosinophils/100 WBC (Bld) 0.0 % Normal 0.0-6.0 [facility] Comment on above: Performed By: #### L [id number] ####Health Information Specialist: VELMA [phone])[facility])[address] [place] [address] Erythrocyte distribution width (RBC) [Ratio] 14.3 % Normal 11.5-15.0 [facility] Comment on above: Performed By: #### L [id number] ####Health Information Specialist: VELMA VALADEZ ([phone])[facility])[address] [place] [address] Hematocrit (Bld) [Volume fraction] 27.0 % Low 35.0-47.0 [facility] Comment on above: Performed By: #### L [id number] ####Health Information Specialist: VELMA VALADEZ ([phone])[facility])[address] [place] [address] Hemoglobin (Bld) [Mass/Vol] 8.6 g/dL Low 11.7-16.0 [facility] Comment on above: Performed By: #### L [id number] ####Health Information Specialist: VELMA VALADEZ ([phone])[facility] ([facility])[address] [place] [address] IMMATURE GRANS % 0.5 % Normal 0.0-2.0 [facility] Comment on above: Performed By: #### L [id number] ####Health Information Specialist: VELMA VALADEZ ([phone])[facility])[address] [place] [address] IMMATURE GRANS ABSOLUTE 0.0 10*3/uL Normal <0.1 [facility] Comment on above: Performed By: #### L [id number] ####Health Information Specialist: VELMA VALADEZ ([phone])[facility])[address] [place] [address] Lymphocytes (Bld) [#/Vol] 0.8 10*3/uL Low 1.0-4.3 [facility] Comment on above: Performed By: #### L [id number] ####Health Information Specialist: VELMA VALADEZ ([phone])[facility])[address] [place] [address] [place] Lymphocytes/100 WBC (Bld) 19.2 % Normal 15.0-45.0 [facility] Comment on above: Performed By: #### L [id number] ####Health Information Specialist: VELMA VALADEZ ([phone])[facility])[address] [place] [address] MCH (RBC) [Entitic mass] 30.1 pg Normal 26.0-34.0 [facility] Comment on above: Performed By: #### L [id number] ####Health Information Specialist: VELMA VALADEZ ([phone])[facility])[address] [place] [address] MCHC 31.9 % Normal 30.5-36.0 [facility] Comment on above: Performed By: #### L [id number] ####Health Information Specialist: VELMA VALADEZ ([phone])[facility])[address] [place] [address] MCV (RBC) [Entitic vol] 94.4 fL Normal 77.0-99.0 [facility] Comment on above: Performed By: #### L [id number] ####Health Information Specialist: VELMA VALADEZ ([phone])[facility])[address] [place] [address] Monocytes (Bld) [#/Vol] 0.3 10*3/uL Normal 0.0-0.9 [facility] Comment on above: Performed By: #### L [id number] ####Health Information Specialist: VELMA VLAADEZ ([phone])[facility])[address] [place] [address] Monocytes/100 WBC (Bld) 7.5 % Normal 5.0-13.0 [facility] Comment on above: Performed By: #### L [id number] ####Health Information Specialist: VELMA VALADEZ ([phone])[facility])[address] [place] [address] NEUTROPHILS ABSOLUTE 2.9 10*3/uL Normal 1.8-7.5 [facility] Comment on above: Performed By: #### L [id number] ####Health Information Specialist: VELMA VALADEZ ([phone])[facility] ([facility])[address] [place] [address] Neutrophils/100 WBC (Bld) 72.6 % Normal 38.0-82.0 [facility] Comment on above: Performed By: #### L [id number] ####Health Information Specialist: VELMA VALADEZ ([phone])[facility] ([facility])[address] [place] [address] NRBC 0.0 /100 WBCs Normal 0.0-2.0 [facility] Comment on above: Performed By: #### L [id number] ####Health Information Specialist: VELMA VALADEZ ([phone])[facility] ([facility])[address] [place] [address] Platelet mean volume (Bld) [Entitic vol] 10.5 fL Normal 9.0-12.7 [facility] Comment on above: Performed By: #### L [id number] ####Health Information Specialist: VELMA VALADEZ ([phone])[facility] ([facility])[address] [place] [address] Platelets (Bld) [#/Vol] 202 10*3/uL Normal 140-440 [facility] Comment on above: Performed By: #### L [id number] ####Health Information Specialist: VELMA VALADEZ ([phone])[facility] ([facility])[address] [place] [address] RBC (Bld) [#/Vol] 2.86 10*6/uL Low 3.80-5.20 [facility] Comment on above: Performed By: #### L [id number] ####Health Information Specialist: VELMA VALADEZ ([phone])[facility])[address] [place] [address] WBC (Bld) [#/Vol] 4.0 10*3/uL Normal 3.6-10.7 [facility] Comment on above: Performed By: #### L [id number] ####Health Information Specialist: VELMA VALADEZ ([phone])[facility])[address] [place] [address] [place] IDNon 04-07-2024 IDN Normal [facility] - Coagulationon 0 04-07-2024 PT Coag (Bld) [Time] 11.1 s 9.0 - 1 2.0 s [facility] No Panel Informationon 04-07 [facility] Nursing Noteon 04-07-2024 Nursing Note NO changes to hepari n infusion at this time. Normal [facility] PROTHROMBIN TIMEon INR Coag (PPP) [Relative time] 1.0 {INR} Normal 0.9-1.1 [facility] Comment on above: Result Comment: [...] Myocardial Infarction Performed By: #### Weston AB325, [id number] ####Health Information Specialist: VELMA VALADEZ ([phone])[facility])[address] [place] [address] PT Coag (PPP) [Time] 11.1 s Normal 9.0-12.0 [facility] Comment on above: Performed By: #### Weston AB325, [id number] ####Health Information Specialist: VELMA VALADEZ ([phone])[facility])[address] [place] [address] PT Coag (Bld) [Time]on 04-07 INR Coag (PPP) [Relative time] 1.0 {INR} 0.9 - 1.1 [facility] Comment on above: Recommended Anticoag ulant Therapy: [...] results Normal [facility] Progress Noteon 04-07-2024 Progress Note Normal [facility] Progress Note Normal [facility] Progress Note Normal [facility] aPTT Coag (Bld) [Time]on aPTT Coag (PPP) [Time] 54.7 s High 20.0 - 30.5 s [facility] Interpretation and review of laboratory results Abnormal [facility] NOTE: The therapeuti c time for Heparin anticoagulation, based on Xa activity inhibition, is an APTT of 46-80 seconds. [facility] aPTT Coag (PPP) [Time] 77.7 s High 20.0 - 30.5 s [facility] Interpretation and review of laboratory results Abnormal [facility] NOTE: The therapeuti c time for Heparin anticoagulation, based on Xa activity inhibition, is an APTT of 46-80 seconds. [facility] [id number] 04-06-2024 [id number] Normal [facility] APTTon 04-06-2024 aPTT Coag (Bld) [Time] 43.3 s High 20.0-30.5 [facility] Comment on above: Result Comment: BUBBA Garcia COMMENTS:NOTE: The therapeutic time for Heparin anticoagulation, based on Xa activity inhibition, is an APTT of 46-80 seconds. Performed By: #### L [id number] ####Health Information Specialist: VELMA VALADEZ ([phone])[address] aPTT Coag (Bld) [Time] 97.6 s High 20.0-30.5 [facility] Comment on above: Result Comment: UBBBA Garcia COMMENTS:NOTE: The therapeutic time for Heparin anticoagulation, based on Xa activity inhibition, is an APTT of 46-80 seconds. Performed By: #### L [id number] ####Health Information Specialist: VELMA VALADEZ ([phone])[facility] ([facility])[address] [place] [address] Anesthesia Noteon 04-06-2024 Anesthesia Note Normal [facility] Anesthesia Note Normal [facility] BASIC METABOLIC PANELon 03-19 Anion gap [Moles/Vol] 4 mmol/L Normal 3-13 [facility] Comment on above: Performed By: #### L AB15 ####Health Information Specialist: VELMA VALADEZ ([phone])[facility] ([facility])[address] [place] [address] Calcium [Mass/Vol] 8.9 mg/dL Normal 8.4-10.4 [facility] Comment on above: Performed By: #### L AB15 ####Health Information Specialist: VELMA VALADEZ ([phone])[facility] ([facility])[address] [place] [address] Chloride [Moles/Vol] 114 mmol/L High 98-107 [facility] Comment on above: Performed By: #### L AB15 ####Health Information Specialist: VELMA VALADEZ ([phone])[facility] ([facility])[address] [place] [address] CO2 [Moles/Vol] 18 mmol/L Low 22-30 [facility] Comment on above: Performed By: #### L AB15 ####Health Information Specialist: VELMA VALADEZ ([phone])[facility] ([facility])[address] [place] [address] Creatinine [Mass/Vol] 0.96 mg/dL Normal 0.52-1.04 [facility] Comment on above: Performed By: #### L AB15 ####Health Information Specialist: VELMA VALADEZ ([phone])[facility] ([facility])[address] [place] [address] [place] GLOMERULAR FILTRATION RATE ML/MIN/1.73 SQ M.PREDICTED 58.5 mL/min/1.73m*2 Low >60.0 [facility] Comment on above: Result Comment: Calc ulation based on the Chronic Kidney Disease Epidemiology Collaboration (CKD-EPI) equation refit without adjustment for race Performed By: #### L AB15 ####Health Information Specialist: VELMA VALADEZ ([phone])[facility] ([facility])[address] [place] [address] Glucose [Mass/Vol] 97 mg/dL Normal 70-100 [facility] Comment on above: Performed By: #### L AB15 ####Health Information Specialist: VELMA VALADEZ ([phone])[facility] ([facility])[address] [place] [address] Potassium [Moles/Vol] 4.6 mmol/L Normal 3.5-5.1 [facility] Comment on above: Performed By: #### L AB15 ####Health Information Specialist: VELMA VALADEZ ([phone])[facility] ([facility])[address] [place] [address] Sodium [Moles/Vol] 135 mmol/L Normal 135-145 [facility] Comment on above: Performed By: #### L AB15 ####Health Information Specialist: VELMA VALADEZ ([phone])[facility] ([facility])[address] [place] [address] Urea nitrogen [Mass/Vol] 17 mg/dL Normal 7-17 [facility] Comment on above: Performed By: #### L AB15 ####Health Information Specialist: VELMA VALADEZ ([phone])[facility] ([facility])[address] [place] [address] BLOOD TYPE AND SCREEN GELon 04-06-2024 ABO GROUPING AB Normal [facility] Comment on above: Performed By: #### L [id number] ####Health Information Specialist: VELMA VALADEZ ([phone])[facility] ([facility])[address] [place] [address] RH TYPE IN BLOOD Positive Normal [facility] Comment on above: Performed By: #### L [id number] ####Health Information Specialist: VELMA VALADEZ ([phone])[facility] ([facility])[address] [place] [address] Basic metabolic 1998 panelon 04-06-2024 Anion gap [Moles/Vol] 4 mmol/L 3 - 13 mmol/L [facility] Calcium [Mass/Vol] 8.9 mg/dL 8.4 - 10. 4 mg/dL [facility] Chloride [Moles/Vol] 114 mmol/L High 98 - 10 7 mmol/L [facility] CO2 [Moles/Vol] 18 mmol/L Low 22 - 30 mmol/L [facility] Creatinine [Mass/Vol] 0.96 mg/dL 0.52 - 1.04 mg/dL [facility] GFR/1.73 sq M.predicted (S/P/Bld) [Vol rate/Area] 58.5 mL/min Low - PINF [facility] Comment on above: Calculation based on the Chronic Kidney Disease Epidemiology Collaboration (CKD-EPI) equation refit without adjustment for race Glucose [Mass/Vol] 97 mg/dL 70 - 100 mg/dL [facility] Interpretation and review of laboratory results Abnormal [facility] Potassium [Moles/Vol] 4.6 mmol/L 3.5 - 5.1 mmol/L [facility] Sodium [Moles/Vol] 135 mmol/L 135 - 145 mmol/L [facility] Urea nitrogen [Mass/Vol] 17 mg/dL 7 - 17 mg/dL [facility] Blood type and Crossmatch pa juan (Bld)on 04-06-2024 ABO group Nom (Bld) AB [facility] Blood group antibody screen GEL Ql Negative [facility] D Ag Ql (RBC) [facility] CARECOORDon 04-06-2024 [facility] Normal [facility] Normal [facility] CBC W Auto Differential pane l (Bld)on 04-06-2024 Basophils (Bld) [#/Vol] 0.1 10*3/uL 0.0 - 0.2 10*3/uL [facility] Basophils/100 WBC (Bld) 1.1 % 0.0 - 2.0 % [facility] Eosinophils (Bld) [#/Vol] 0.1 10*3/uL 0.0 - 0.5 10*3/uL [facility] Eosinophils/100 WBC (Bld) 2.7 % 0.0 - 6.0 % [facility] Erythrocyte distribution width (RBC) [Ratio] 14.3 % 11.5 - 15.0 % [facility] Hematocrit (Bld) [Volume fraction] 29.8 % Low 35.0 - 47.0 % [facility] Hemoglobin (Bld) [Mass/Vol] 9.7 g/dL Low 11.7 - 16.0 g/dL [facility] Immature granulocytes (Bld) [#/Vol] 0.0 10*3/uL NINF - 0.1 10*3/uL [facility] Immature granulocytes/100 WBC (Bld) 0.2 % 0.0 - 2.0 % [facility] Interpretation and review of laboratory results Abnormal [facility] Lymphocytes (Bld) [#/Vol] 1.5 10*3/uL 1.0 - 4.3 10*3/uL [facility] Lymphocytes/100 WBC (Bld) 33.0 % 15.0 - 45.0 % [facility] MCH (RBC) [Entitic mass] 30.3 pg 26.0 - 34.0 pg [facility] MCHC (RBC) [Mass/Vol] 32.6 % 30.5 - 36.0 % [facility] MCV (RBC) [Entitic vol] 93.1 fL 77.0 - 99.0 fL [facility] Monocytes (Bld) [#/Vol] 0.5 10*3/uL 0.0 - 0.9 10*3/uL [facility] Monocytes/100 WBC (Bld) 10.5 % 5.0 - 13.0 % [facility] Neutrophils (Bld) [#/Vol] 2.4 10*3/uL 1.8 - 7.5 10*3/uL [facility] Neutrophils/100 WBC (Bld) 52.5 % 38.0 - 82.0 % [facility] Nucleated RBC/100 WBC (Bld) [Ratio] 0.0 % [facility] Platelet mean volume (Bld) [Entitic vol] 10.4 fL 9.0 - 12.7 fL [facility] Platelets (Bld) [#/Vol] 207 10*3/uL 140 - 440 10*3/uL [facility] RBC (Bld) [#/Vol] 3.20 10*6/uL Low 3.80 - 5.2 0 10*6/uL [facility] WBC (Bld) [#/Vol] 4.5 10*3/uL 3.6 - 10.7 10*3/uL [facility] CBC WITH AUTO DIFFERENTIALon 04-06-2024 Basophils (Bld) [#/Vol] 0.1 10*3/uL Normal 0.0-0.2 [facility] Comment on above: Performed By: #### L [id number] ####Health Information Specialist: VELMA VALADEZ ([phone])[facility] ([facility])[address] [place] [address] Basophils/100 WBC (Bld) 1.1 % Normal 0.0-2.0 [facility] Comment on above: Performed By: #### L [id number] ####Health Information Specialist: VELMA VALADEZ ([phone])[facility])[address] [place] [address] Eosinophils (Bld) [#/Vol] 0.1 10*3/uL Normal 0.0-0.5 [facility] Comment on above: Performed By: #### L [id number] ####Health Information Specialist: VELMA VALADEZ ([phone])[facility] ([facility])[address] [place] [address] Eosinophils/100 WBC (Bld) 2.7 % Normal 0.0-6.0 [facility] Comment on above: Performed By: #### L [id number] ####Health Information Specialist: VELMA VALADEZ ([phone])[facility])[address] [place] [address] Erythrocyte distribution width (RBC) [Ratio] 14.3 % Normal 11.5-15.0 [facility] Comment on above: Performed By: #### L [id number] ####Health Information Specialist: VELMA VALADEZ ([phone])[facility] ([facility])[address] [place] [address] Hematocrit (Bld) [Volume fraction] 29.8 % Low 35.0-47.0 [facility] Comment on above: Performed By: #### L [id number] ####Health Information Specialist: VELMA VALADEZ ([phone])[facility])[address] [place] [address] Hemoglobin (Bld) [Mass/Vol] 9.7 g/dL Low 11.7-16.0 [facility] Comment on above: Performed By: #### L [id number] ####Health Information Specialist: VELMA VALADEZ ([phone])[facility])[address] [place] [address] IMMATURE GRANS % 0.2 % Normal 0.0-2.0 [facility] Comment on above: Performed By: #### L [id number] ####Health Information Specialist: VELMA VALADEZ ([phone])[facility])[address] [place] [address] IMMATURE GRANS ABSOLUTE 0.0 10*3/uL Normal <0.1 [facility] Comment on above: Performed By: #### L [id number] ####Health Information Specialist: VELMA VALADEZ ([phone])[address] Lymphocytes (Bld) [#/Vol] 1.5 10*3/uL Normal 1.0-4.3 [facility] Comment on above: Performed By: #### L [id number] ####Health Information Specialist: VELMA VALADEZ ([phone])[address] Lymphocytes/100 WBC (Bld) 33.0 % Normal 15.0-45.0 [facility] Comment on above: Performed By: #### L [id number] ####Health Information Specialist: VELMA VALADEZ ([phone])[facility])[address] [place] [address] MCH (RBC) [Entitic mass] 30.3 pg Normal 26.0-34.0 [facility] Comment on above: Performed By: #### L [id number] ####Health Information Specialist: VELMA VALADEZ ([phone])[address] MCHC 32.6 % Normal 30.5-36.0 [facility] Comment on above: Performed By: #### L [id number] ####Health Information Specialist: VELMA VALADEZ ([phone])[facility] ([facility])[address] [place] [address] MCV (RBC) [Entitic vol] 93.1 fL Normal 77.0-99.0 [facility] Comment on above: Performed By: #### L [id number] ####Health Information Specialist: VELMA VALADEZ ([phone])[facility] ([facility])[address] [place] [address] [place] Monocytes (Bld) [#/Vol] 0.5 10*3/uL Normal 0.0-0.9 [facility] Comment on above: Performed By: #### L [id number] ####Health Information Specialist: VELMA VALADEZ ([phone])[facility] ([facility])[address] [place] [address] Monocytes/100 WBC (Bld) 10.5 % Normal 5.0-13.0 [facility] Comment on above: Performed By: #### L [id number] ####Health Information Specialist: VELMA VALADEZ ([phone])[facility] ([facility])[address] [place] [address] NEUTROPHILS ABSOLUTE 2.4 10*3/uL Normal 1.8-7.5 [facility] Comment on above: Performed By: #### L [id number] ####Health Information Specialist: VELMA VALADEZ ([phone])[facility] ([facility])[address] [place] [address] [place] Neutrophils/100 WBC (Bld) 52.5 % Normal 38.0-82.0 [facility] Comment on above: Performed By: #### L [id number] ####Health Information Specialist: VELMA VALADEZ ([phone])[facility] ([facility])[address] [place] [address] [place] NRBC 0.0 /100 WBCs Normal 0.0-2.0 [facility] Comment on above: Performed By: #### L [id number] ####Health Information Specialist: VELMA VALADEZ ([phone])[facility] ([facility])[address] [place] [address] Platelet mean volume (Bld) [Entitic vol] 10.4 fL Normal 9.0-12.7 [facility] Comment on above: Performed By: #### L [id number] ####Health Information Specialist: VELMA VALADEZ ([phone])[facility])[address] [place] [address] Platelets (Bld) [#/Vol] 207 10*3/uL Normal 140-440 [facility] Comment on above: Performed By: #### L [id number] ####Health Information Specialist: VELMA VALADEZ ([phone])[facility])[address] [place] [address] RBC (Bld) [#/Vol] 3.20 10*6/uL Low 3.80-5.20 [facility] Comment on above: Performed By: #### L [id number] ####Health Information Specialist: VELMA VALADEZ ([phone])[facility] ([facility])[address] [place] [address] WBC (Bld) [#/Vol] 4.5 10*3/uL Normal 3.6-10.7 [facility] Comment on above: Performed By: #### L [id number] ####Health Information Specialist: VELMA VALADEZ ([phone])[facility])[address] [place] [address] No Panel Informationon 04-06 There is no interpretation needed for this exam. IMAGING Nursing Noteon 04-06-2024 Nursing Note Patient report rader d to 4N RN and denies any further questions. Patient resting comfortably and no signs of distress. Per resident patient to lay flat for 2 hours and restart heparin GTT at 1215. Transport notified. Normal [facility] Op Noteon 04-06-2024 Op Note Normal [facility] Progress Noteon 04-06-2024 Progress Note Normal [facility] Progress Note Normal [facility] Progress Note Normal [facility] aPTT Coag (Bld) [Time]on aPTT Coag (PPP) [Time] 43.3 s High 20.0 - 30.5 s [facility] Interpretation and review of laboratory results Abnormal [facility] NOTE: The therapeuti c time for Heparin anticoagulation, based on Xa activity inhibition, is an APTT of 46-80 seconds. [facility] aPTT Coag (PPP) [Time] 97.6 s High 20.0 - 30.5 s [facility] Interpretation and review of laboratory results Abnormal [facility] NOTE: The therapeuti c time for Heparin anticoagulation, based on Xa activity inhibition, is an APTT of 46-80 seconds. [facility] 36on 04-05-2024 36 Surgery: Inpatient R LE venous mechanical thrombectomy Date of surgery: 04/06/24 Pre-testing: inpatient CPT codes: 91777 ICD 10: I82.401 Post-op or OV: Adriane to schedule Reps: Selvin Elaine) notified 04/05/24 Normal [facility] APTTon 04-05-2024 aPTT Coag (Bld) [Time] 76.6 s High 20.0-30.5 [facility] Comment on above: Result Comment: BUBBA Garcia COMMENTS:NOTE: The therapeutic time for Heparin anticoagulation, based on Xa activity inhibition, is an APTT of 46-80 seconds. Performed By: #### L AB325, [id number] ####Health Information Specialist: VELMA VALADEZ ([phone])[address] aPTT Coag (Bld) [Time] 69.9 s High 20.0-30.5 [facility] Comment on above: Result Comment: BUBBA Garcia COMMENTS:NOTE: The therapeutic time for Heparin anticoagulation, based on Xa activity inhibition, is an APTT of 46-80 seconds. Performed By: #### L [id number] ####Health Information Specialist: VELMA VALADEZ ([phone])[facility])[address] [place] [address] aPTT Coag (Bld) [Time] 88.8 s High 20.0-30.5 [facility] Comment on above: Result Comment: BUBBA Garcia COMMENTS:NOTE: The therapeutic time for Heparin anticoagulation, based on Xa activity inhibition, is an APTT of 46-80 seconds. Performed By: #### L [id number], [id number] ####Health Information Specialist: VELMA VALADEZ ([phone])[facility])[address] [place] [address] aPTT Coag (Bld) [Time] 109.7 s High 20.0-30.5 [facility] Comment on above: Result Comment: BUBBA Garcia COMMENTS:NOTE: The therapeutic time for Heparin anticoagulation, based on Xa activity inhibition, is an APTT of 46-80 seconds. Performed By: #### L [id number] ####Health Information Specialist: VELMA VALADEZ ([phone])[facility] ([facility])[address] [place] [address] BASIC METABOLIC PANELon 09- Anion gap [Moles/Vol] 3 mmol/L Normal 3-13 [facility] Comment on above: Performed By: #### L AB15 ####Health Information Specialist: VELMA VALADEZ ([phone])[facility] ([facility])[address] [place] [address] Calcium [Mass/Vol] 8.7 mg/dL Normal 8.4-10.4 [facility] Comment on above: Performed By: #### L AB15 ####Health Information Specialist: VELMA VALADEZ ([phone])[facility] ([facility])[address] [place] [address] Chloride [Moles/Vol] 113 mmol/L High 98-107 [facility] Comment on above: Performed By: #### L AB15 ####Health Information Specialist: VELMA VALADEZ ([phone])[facility] ([facility])[address] [place] [address] CO2 [Moles/Vol] 17 mmol/L Low 22-30 [facility] Comment on above: Performed By: #### L AB15 ####Health Information Specialist: VELMA VALADEZ ([phone])[facility] ([facility])[address] [place] [address] Creatinine [Mass/Vol] 1.12 mg/dL High 0.52-1.04 [facility] Comment on above: Performed By: #### L AB15 ####Health Information Specialist: VELMA VALADEZ ([phone])[facility])[address] [place] [address] GLOMERULAR FILTRATION RATE ML/MIN/1.73 SQ M.PREDICTED 48.6 mL/min/1.73m*2 Low >60.0 [facility] Comment on above: Result Comment: Calc ulation based on the Chronic Kidney Disease Epidemiology Collaboration (CKD-EPI) equation refit without adjustment for race Performed By: #### L AB15 ####Health Information Specialist: VELMA VALADEZ ([phone])[facility] ([facility])[address] [place] [address] Glucose [Mass/Vol] 102 mg/dL High 70-100 [facility] Comment on above: Performed By: #### L AB15 ####Health Information Specialist: VELMA VALADEZ ([phone])[facility] ([facility])[address] [place] [address] Potassium [Moles/Vol] 4.8 mmol/L Normal 3.5-5.1 [facility] Comment on above: Performed By: #### L AB15 ####Health Information Specialist: VELMA VALADEZ ([phone])[facility] ([facility])[address] [place] [address] Sodium [Moles/Vol] 133 mmol/L Low 135-145 [facility] Comment on above: Performed By: #### L AB15 ####Health Information Specialist: VELMA VALADEZ ([phone])[facility] ([facility])[address] [place] [address] [place] Urea nitrogen [Mass/Vol] 25 mg/dL High 7-17 [facility] Comment on above: Performed By: #### L AB15 ####Health Information Specialist: VELMA VALADEZ ([phone])[facility] ([facility])[address] [place] [address] Basic metabolic 1998 panelon 04-05-2024 Anion gap [Moles/Vol] 3 mmol/L 3 - 13 mmol/L [facility] Calcium [Mass/Vol] 8.7 mg/dL 8.4 - 10. 4 mg/dL [facility] Chloride [Moles/Vol] 113 mmol/L High 98 - 10 7 mmol/L [facility] CO2 [Moles/Vol] 17 mmol/L Low 22 - 30 mmol/L [facility] Creatinine [Mass/Vol] 1.12 mg/dL High 0.52 - 1.04 mg/dL [facility] GFR/1.73 sq M.predicted (S/P/Bld) [Vol rate/Area] 48.6 mL/min Low - PINF [facility] Comment on above: Calculation based on the Chronic Kidney Disease Epidemiology Collaboration (CKD-EPI) equation refit without adjustment for race Glucose [Mass/Vol] 102 mg/dL High 70 - 100 mg/dL [facility] Interpretation and review of laboratory results Abnormal [facility] Potassium [Moles/Vol] 4.8 mmol/L 3.5 - 5.1 mmol/L [facility] Sodium [Moles/Vol] 133 mmol/L Low 135 - 145 mmol/L [facility] Urea nitrogen [Mass/Vol] 25 mg/dL High 7 - 17 mg/dL [facility] CARECOORDon 04-05-2024 CARECOORD Normal [facility] CBC W Auto Differential pane l (Bld)on 04-05-2024 Basophils (Bld) [#/Vol] 0.1 10*3/uL 0.0 - 0.2 10*3/uL [facility] Basophils/100 WBC (Bld) 1.0 % 0.0 - 2.0 % [facility] Eosinophils (Bld) [#/Vol] 0.2 10*3/uL 0.0 - 0.5 10*3/uL [facility] Eosinophils/100 WBC (Bld) 2.9 % 0.0 - 6.0 % [facility] Erythrocyte distribution width (RBC) [Ratio] 14.4 % 11.5 - 15.0 % [facility] Hematocrit (Bld) [Volume fraction] 32.3 % Low 35.0 - 47.0 % [facility] Hemoglobin (Bld) [Mass/Vol] 10.6 g/dL Low 11.7 - 16.0 g/dL [facility] Immature granulocytes (Bld) [#/Vol] 0.0 10*3/uL NINF - 0.1 10*3/uL [facility] Immature granulocytes/100 WBC (Bld) 0.3 % 0.0 - 2.0 % [facility] Interpretation and review of laboratory results Abnormal [facility] Lymphocytes (Bld) [#/Vol] 1.7 10*3/uL 1.0 - 4.3 10*3/uL [facility] Lymphocytes/100 WBC (Bld) 27.5 % 15.0 - 45.0 % [facility] MCH (RBC) [Entitic mass] 30.7 pg 26.0 - 34.0 pg [facility] MCHC (RBC) [Mass/Vol] 32.8 % 30.5 - 36.0 % [facility] MCV (RBC) [Entitic vol] 93.6 fL 77.0 - 99.0 fL [facility] Monocytes (Bld) [#/Vol] 0.6 10*3/uL 0.0 - 0.9 10*3/uL [facility] Monocytes/100 WBC (Bld) 9.0 % 5.0 - 13.0 % [facility] Neutrophils (Bld) [#/Vol] 3.6 10*3/uL 1.8 - 7.5 10*3/uL [facility] Neutrophils/100 WBC (Bld) 59.3 % 38.0 - 82.0 % [facility] Nucleated RBC/100 WBC (Bld) [Ratio] 0.0 % [facility] Platelet mean volume (Bld) [Entitic vol] 10.1 fL 9.0 - 12.7 fL [facility] Platelets (Bld) [#/Vol] 204 10*3/uL 140 - 440 10*3/uL [facility] RBC (Bld) [#/Vol] 3.45 10*6/uL Low 3.80 - 5.2 0 10*6/uL [facility] WBC (Bld) [#/Vol] 6.1 10*3/uL 3.6 - 10.7 10*3/uL [facility] CBC WITH AUTO DIFFERENTIALon 04-05-2024 Basophils (Bld) [#/Vol] 0.1 10*3/uL Normal 0.0-0.2 [facility] Comment on above: Performed By: #### L [id number] ####Health Information Specialist: VELMA VALADEZ ([phone])[facility] ([facility])[address] [place] [address] Basophils/100 WBC (Bld) 1.0 % Normal 0.0-2.0 [facility] Comment on above: Performed By: #### L [id number] ####Health Information Specialist: VELMA VALADEZ ([phone])[facility] ([facility])[address] [place] [address] Eosinophils (Bld) [#/Vol] 0.2 10*3/uL Normal 0.0-0.5 [facility] Comment on above: Performed By: #### L [id number] ####Health Information Specialist: VELMA VALADEZ ([phone])[facility])[address] [place] [address] Eosinophils/100 WBC (Bld) 2.9 % Normal 0.0-6.0 [facility] Comment on above: Performed By: #### L [id number] ####Health Information Specialist: VELMA VALADEZ ([phone])[facility])[address] [place] [address] Erythrocyte distribution width (RBC) [Ratio] 14.4 % Normal 11.5-15.0 [facility] Comment on above: Performed By: #### L [id number] ####Health Information Specialist: VELMA VALADEZ ([phone])[facility])[address] [place] [address] Hematocrit (Bld) [Volume fraction] 32.3 % Low 35.0-47.0 [facility] Comment on above: Performed By: #### L [id number] ####Health Information Specialist: VELMA VALADEZ ([phone])[facility])[address] [place] [address] Hemoglobin (Bld) [Mass/Vol] 10.6 g/dL Low 11.7-16.0 [facility] Comment on above: Performed By: #### L [id number] ####Health Information Specialist: VELMA VALADEZ ([phone])[facility])[address] [place] [address] IMMATURE GRANS % 0.3 % Normal 0.0-2.0 [facility] Comment on above: Performed By: #### L [id number] ####Health Information Specialist: VELMA VALADEZ ([phone])[facility])[address] [place] [address] IMMATURE GRANS ABSOLUTE 0.0 10*3/uL Normal <0.1 [facility] Comment on above: Performed By: #### L [id number] ####Health Information Specialist: VELMA VALADEZ ([phone])[facility])[address] [place] [address] Lymphocytes (Bld) [#/Vol] 1.7 10*3/uL Normal 1.0-4.3 [facility] Comment on above: Performed By: #### L [id number] ####Health Information Specialist: VELMA VALADEZ ([phone])[facility])[address] [place] [address] Lymphocytes/100 WBC (Bld) 27.5 % Normal 15.0-45.0 [facility] Comment on above: Performed By: #### L [id number] ####Health Information Specialist: VELMA VALADEZ ([phone])[facility])[address] [place] [address] MCH (RBC) [Entitic mass] 30.7 pg Normal 26.0-34.0 [facility] Comment on above: Performed By: #### L [id number] ####Health Information Specialist: VELMA VALADEZ ([phone])[facility])[address] [place] [address] MCHC 32.8 % Normal 30.5-36.0 [facility] Comment on above: Performed By: #### L [id number] ####Health Information Specialist: VELMA VALADEZ ([phone])[facility])[address] [place] [address] MCV (RBC) [Entitic vol] 93.6 fL Normal 77.0-99.0 [facility] Comment on above: Performed By: #### L [id number] ####Health Information Specialist: VELMA VALADEZ ([phone])[facility])[address] [place] [address] Monocytes (Bld) [#/Vol] 0.6 10*3/uL Normal 0.0-0.9 [facility] Comment on above: Performed By: #### L [id number] ####Health Information Specialist: VELMA VALADEZ ([phone])[facility] ([facility])[address] [place] [address] Monocytes/100 WBC (Bld) 9.0 % Normal 5.0-13.0 [facility] Comment on above: Performed By: #### L [id number] ####Health Information Specialist: VELMA VALADEZ ([phone])[facility])[address] [place] [address] NEUTROPHILS ABSOLUTE 3.6 10*3/uL Normal 1.8-7.5 [facility] Comment on above: Performed By: #### L [id number] ####Health Information Specialist: VELMA VALADEZ ([phone])[facility] ([facility])[address] [place] [address] Neutrophils/100 WBC (Bld) 59.3 % Normal 38.0-82.0 [facility] Comment on above: Performed By: #### L [id number] ####Health Information Specialist: VELMA VALADEZ ([phone])[facility])[address] [place] [address] NRBC 0.0 /100 WBCs Normal 0.0-2.0 [facility] Comment on above: Performed By: #### L [id number] ####Health Information Specialist: VELMA VALADEZ ([phone])[facility])[address] [place] [address] Platelet mean volume (Bld) [Entitic vol] 10.1 fL Normal 9.0-12.7 [facility] Comment on above: Performed By: #### L [id number] ####Health Information Specialist: VELMA VALADEZ ([phone])[facility] ([facility])[address] [place] [address] Platelets (Bld) [#/Vol] 204 10*3/uL Normal 140-440 [facility] Comment on above: Performed By: #### L [id number] ####Health Information Specialist: VELMA VALADEZ ([phone])[facility] ([facility])[address] [place] [address] RBC (Bld) [#/Vol] 3.45 10*6/uL Low 3.80-5.20 [facility] Comment on above: Performed By: #### L [id number] ####Health Information Specialist: VELMA VALADEZ ([phone])[facility])[address] [place] [address] WBC (Bld) [#/Vol] 6.1 10*3/uL Normal 3.6-10.7 [facility] Comment on above: Performed By: #### L [id number] ####Health Information Specialist: VELMA VALADEZ ([phone])[facility] ([facility])[address] [place] [address] IDNon 04-05-2024 IDN The patient is Moderately Stable - Low risk of patient condition declining or worsening The patient's goals for the shift include met The clinical goals for the shift include met Normal [facility] Laboratory - Coagulationon 0 04-05-2024 PT Coag (Bld) [Time] 11.4 s 9.0 - 1 2.0 s [facility] PT Coag (Bld) [Time] 11.9 s 9.0 - 1 2.0 s [facility] No Panel Informationon 04-05 [facility] PROTHROMBIN TIMEon INR Coag (PPP) [Relative time] 1.0 {INR} Normal 0.9-1.1 [facility] Comment on above: Performed By: #### L [id number], [id number] ####Health Information Specialist: VELMA VALADEZ ([phone])[facility] ([facility])[address] [place] [address] PT Coag (PPP) [Time] 11.4 s Normal 9.0-12.0 [facility] Comment on above: Performed By: #### Weston AB325, [id number] ####Health Information Specialist: VELMA VALADEZ ([phone])[facility])[address] [place] [address] INR Coag (PPP) [Relative time] 1.1 {INR} Normal 0.9-1.1 [facility] Comment on above: Result Comment: [...] Myocardial Infarction Performed By: #### Weston [id number], [id number] ####Health Information Specialist: VELMA VALADEZ ([phone])[facility])[address] [place] [address] PT Coag (PPP) [Time] 11.9 s Normal 9.0-12.0 [facility] Comment on above: Performed By: #### Weston AB320, [id number] ####Health Information Specialist: VELMA VALADEZ ([phone])[facility])[address] [place] [address] [place] PT Coag (Bld) [Time]on 04-05 INR Coag (PPP) [Relative time] 1.0 {INR} 0.9 - 1.1 [facility] Interpretation and review of laboratory results Normal [facility] INR Coag (PPP) [Relative time] 1.1 {INR} 0.9 - 1.1 [facility] Comment on above: Recommended Anticoag ulant Therapy: [...] results Normal [facility] Progress Noteon 04-05-2024 Progress Note Normal [facility] Progress Note Nutrition rescreen completed. Chart reviewed. Patient to be monitored and followed by the diet product technician. KEITH Harmon Normal [facility] Progress Note Normal [facility] Progress Note Normal [facility] aPTT Coag (Bld) [Time]on aPTT Coag (PPP) [Time] 76.6 s High 20.0 - 30.5 s [facility] Interpretation and review of laboratory results Abnormal [facility] NOTE: The therapeuti c time for Heparin anticoagulation, based on Xa activity inhibition, is an APTT of 46-80 seconds. [facility] aPTT Coag (PPP) [Time] 69.9 s High 20.0 - 30.5 s [facility] Interpretation and review of laboratory results Abnormal [facility] NOTE: The therapeuti c time for Heparin anticoagulation, based on Xa activity inhibition, is an APTT of 46-80 seconds. [facility] aPTT Coag (PPP) [Time] 88.8 s High 20.0 - 30.5 s [facility] Interpretation and review of laboratory results Abnormal [facility] NOTE: The therapeuti c time for Heparin anticoagulation, based on Xa activity inhibition, is an APTT of 46-80 seconds. [facility] aPTT Coag (Bld) [Time]Ordere d By: Juni Millard on 04-05-2024 aPTT Coag (PPP) [Time] 109.7 s High 20.0 - 30.5 s [facility] Interpretation and review of laboratory results Abnormal [facility] NOTE: The therapeuti c time for Heparin anticoagulation, based on Xa activity inhibition, is an APTT of 46-80 seconds. [facility] [id number] 04-04-2024 [id number] Normal [facility] [id number] Normal [facility] APTTon 04-04-2024 aPTT Coag (Bld) [Time] 81.8 s High 20.0-30.5 [facility] Comment on above: Result Comment: ORDE R COMMENTS:NOTE: The therapeutic time for Heparin anticoagulation, based on Xa activity inhibition, is an APTT of 46-80 seconds. Performed By: #### L [id number] ####Health Information Specialist: VELMA VALADEZ ([phone])[facility])[address] [place] [address] aPTT Coag (Bld) [Time] 81.4 s High 20.0-30.5 [facility] Comment on above: Result Comment: BUBBA R COMMENTS:NOTE: The therapeutic time for Heparin anticoagulation, based on Xa activity inhibition, is an APTT of 46-80 seconds. Performed By: #### L [id number] ####Health Information Specialist: VELMA [phone])[facility])[address] [place] [address] aPTT Coag (Bld) [Time] 132.2 s Critically high 20.0-30. 5 [facility] Comment on above: Result Comment: BUBBA Garcia COMMENTS:NOTE: The therapeutic time for Heparin anticoagulation, based on Xa activity inhibition, is an APTT of 46-80 seconds. Performed By: #### L [id number] ####Health Information Specialist: VELMA VALADEZ ([phone])[facility])[address] [place] [address] BASIC METABOLIC PANELon 09- Anion gap [Moles/Vol] 8 mmol/L Normal 3-13 [facility] Comment on above: Performed By: #### L AB15 ####Health Information Specialist: VELMA [phone])[facility])[address] [place] [address] Calcium [Mass/Vol] 9.3 mg/dL Normal 8.4-10.4 [facility] Comment on above: Performed By: #### L AB15 ####Health Information Specialist: VELMA [phone])[facility])[address] [place] [address] Chloride [Moles/Vol] 110 mmol/L High 98-107 [facility] Comment on above: Performed By: #### L AB15 ####Health Information Specialist: VELMA VALADEZ ([phone])[facility])[address] [place] [address] CO2 [Moles/Vol] 18 mmol/L Low 22-30 [facility] Comment on above: Performed By: #### L AB15 ####Health Information Specialist: VELMA VALADEZ ([phone])[facility])[address] [place] [address] Creatinine [Mass/Vol] 1.45 mg/dL High 0.52-1.04 [facility] Comment on above: Performed By: #### L AB15 ####Health Information Specialist: VELMA VALADEZ ([phone])[facility])[address] [place] [address] GLOMERULAR FILTRATION RATE ML/MIN/1.73 SQ M.PREDICTED 35.6 mL/min/1.73m*2 Low >60.0 [facility] Comment on above: Result Comment: Calc ulation based on the Chronic Kidney Disease Epidemiology Collaboration (CKD-EPI) equation refit without adjustment for race Performed By: #### L AB15 ####Health Information Specialist: VELMA VALADEZ ([phone])[facility])[address] [place] [address] Glucose [Mass/Vol] 100 mg/dL Normal 70-100 [facility] Comment on above: Performed By: #### L AB15 ####Health Information Specialist: VELMA VALADEZ ([phone])[facility])[address] [place] [address] [place] Potassium [Moles/Vol] 4.5 mmol/L Normal 3.5-5.1 [facility] Comment on above: Performed By: #### L AB15 ####Health Information Specialist: VELMA VALADEZ ([phone])[facility])[address] [place] [address] Sodium [Moles/Vol] 135 mmol/L Normal 135-145 [facility] Comment on above: Performed By: #### L AB15 ####Health Information Specialist: VELMA VALADEZ ([phone])[facility] ([facility])[address] [place] [address] Urea nitrogen [Mass/Vol] 30 mg/dL High 7-17 [facility] Comment on above: Performed By: #### L AB15 ####Health Information Specialist: VELMA VALADEZ ([phone])[facility] ([facility])[address] [place] [address] Basic metabolic 1998 panelOr dered By: Marielle Garcia on 04-04-2024 Anion gap [Moles/Vol] 8 mmol/L 3 - 13 mmol/L [facility] Calcium [Mass/Vol] 9.3 mg/dL 8.4 - 10. 4 mg/dL [facility] Chloride [Moles/Vol] 110 mmol/L High 98 - 10 7 mmol/L [facility] CO2 [Moles/Vol] 18 mmol/L Low 22 - 30 mmol/L [facility] Creatinine [Mass/Vol] 1.45 mg/dL High 0.52 - 1.04 mg/dL [facility] GFR/1.73 sq M.predicted (S/P/Bld) [Vol rate/Area] 35.6 mL/min Low - PINF [facility] Comment on above: Calculation based on the Chronic Kidney Disease Epidemiology Collaboration (CKD-EPI) equation refit without adjustment for race Glucose [Mass/Vol] 100 mg/dL 70 - 100 mg/dL [facility] Interpretation and review of laboratory results Abnormal [facility] Potassium [Moles/Vol] 4.5 mmol/L 3.5 - 5.1 mmol/L [facility] Sodium [Moles/Vol] 135 mmol/L 135 - 145 mmol/L [facility] Urea nitrogen [Mass/Vol] 30 mg/dL High 7 - 17 mg/dL [facility] CARECOORDon 04-04-2024 CARECOORD Normal [facility] CBC W Auto Differential pane l (Bld)on 04-04-2024 Basophils (Bld) [#/Vol] 0.1 10*3/uL 0.0 - 0.2 10*3/uL [facility] Basophils/100 WBC (Bld) 0.7 % 0.0 - 2.0 % [facility] Eosinophils (Bld) [#/Vol] 0.3 10*3/uL 0.0 - 0.5 10*3/uL [facility] Eosinophils/100 WBC (Bld) 3.2 % 0.0 - 6.0 % [facility] Erythrocyte distribution width (RBC) [Ratio] 14.2 % 11.5 - 15.0 % [facility] Hematocrit (Bld) [Volume fraction] 38.8 % 35.0 - 47.0 % [facility] Hemoglobin (Bld) [Mass/Vol] 12.5 g/dL 11.7 - 16.0 g/dL [facility] Immature granulocytes (Bld) [#/Vol] 0.1 10*3/uL High NINF - 0.1 10*3/uL [facility] Immature granulocytes/100 WBC (Bld) 0.6 % 0.0 - 2.0 % [facility] Interpretation and review of laboratory results Abnormal [facility] Lymphocytes (Bld) [#/Vol] 1.6 10*3/uL 1.0 - 4.3 10*3/uL [facility] Lymphocytes/100 WBC (Bld) 19.2 % 15.0 - 45.0 % [facility] MCH (RBC) [Entitic mass] 29.7 pg 26.0 - 34.0 pg [facility] MCHC (RBC) [Mass/Vol] 32.2 % 30.5 - 36.0 % [facility] MCV (RBC) [Entitic vol] 92.2 fL 77.0 - 99.0 fL [facility] Monocytes (Bld) [#/Vol] 0.8 10*3/uL 0.0 - 0.9 10*3/uL [facility] Monocytes/100 WBC (Bld) 9.9 % 5.0 - 13.0 % [facility] Neutrophils (Bld) [#/Vol] 5.3 10*3/uL 1.8 - 7.5 10*3/uL [facility] Neutrophils/100 WBC (Bld) 66.4 % 38.0 - 82.0 % [facility] Nucleated RBC/100 WBC (Bld) [Ratio] 0.0 % [facility] Platelet mean volume (Bld) [Entitic vol] 10.0 fL 9.0 - 12.7 fL [facility] Platelets (Bld) [#/Vol] 266 10*3/uL 140 - 440 10*3/uL [facility] RBC (Bld) [#/Vol] 4.21 10*6/uL 3.80 - 5.2 0 10*6/uL [facility] WBC (Bld) [#/Vol] 8.1 10*3/uL 3.6 - 10.7 10*3/uL [facility] CBC WITH AUTO DIFFERENTIALon 04-04-2024 Basophils (Bld) [#/Vol] 0.1 10*3/uL Normal 0.0-0.2 [facility] Comment on above: Performed By: #### L [id number] ####Health Information Specialist: VELMA VALADEZ ([phone])[facility])[address] [place] [address] Basophils/100 WBC (Bld) 0.7 % Normal 0.0-2.0 S [facility] Comment on above: Performed By: #### L [id number] ####Health Information Specialist: VELMA VALADEZ ([phone])[facility] ([facility])[address] [place] [address] Eosinophils (Bld) [#/Vol] 0.3 10*3/uL Normal 0.0-0.5 [facility] Comment on above: Performed By: #### L [id number] ####Health Information Specialist: VELMA VALADEZ ([phone])[facility])[address] [place] [address] Eosinophils/100 WBC (Bld) 3.2 % Normal 0.0-6.0 [facility] Comment on above: Performed By: #### L [id number] ####Health Information Specialist: VELMA VALADEZ ([phone])[facility])[address] [place] [address] Erythrocyte distribution width (RBC) [Ratio] 14.2 % Normal 11.5-15.0 [facility] Comment on above: Performed By: #### L [id number] ####Health Information Specialist: VELMA VALADEZ ([phone])[facility])[address] [place] [address] Hematocrit (Bld) [Volume fraction] 38.8 % Normal 35.0-47.0 [facility] Comment on above: Performed By: #### L [id number] ####Health Information Specialist: VELMA VALADEZ ([phone])[facility])[address] [place] [address] Hemoglobin (Bld) [Mass/Vol] 12.5 g/dL Normal 11.7-16.0 [facility] Comment on above: Performed By: #### L [id number] ####Health Information Specialist: VELMA VALADEZ ([phone])[facility])[address] [place] [address] IMMATURE GRANS % 0.6 % Normal 0.0-2.0 [facility] Comment on above: Performed By: #### L [id number] ####Health Information Specialist: VELMA VALADEZ ([phone])[facility])[address] [place] [address] IMMATURE GRANS ABSOLUTE 0.1 10*3/uL High <0.1 [facility] Comment on above: Performed By: #### L [id number] ####Health Information Specialist: VELMA VALADEZ ([phone])[facility])[address] [place] [address] Lymphocytes (Bld) [#/Vol] 1.6 10*3/uL Normal 1.0-4.3 [facility] Comment on above: Performed By: #### L [id number] ####Health Information Specialist: VELMA VALADEZ ([phone])[facility])[address] [place] [address] Lymphocytes/100 WBC (Bld) 19.2 % Normal 15.0-45.0 [facility] Comment on above: Performed By: #### L [id number] ####Health Information Specialist: VELMA VALADEZ ([phone])[facility])[address] [place] [address] MCH (RBC) [Entitic mass] 29.7 pg Normal 26.0-34.0 [facility] Comment on above: Performed By: #### L [id number] ####Health Information Specialist: VELMA VALADEZ ([phone])[facility])[address] [place] [address] MCHC 32.2 % Normal 30.5-36.0 [facility] Comment on above: Performed By: #### L [id number] ####Health Information Specialist: VELMA VALADEZ ([phone])[facility])[address] [place] [address] MCV (RBC) [Entitic vol] 92.2 fL Normal 77.0-99.0 S [facility] Comment on above: Performed By: #### L [id number] ####Health Information Specialist: VELMA VALADEZ ([phone])[facility])[address] [place] [address] Monocytes (Bld) [#/Vol] 0.8 10*3/uL Normal 0.0-0.9 [facility] Comment on above: Performed By: #### L [id number] ####Health Information Specialist: VELMA VALADEZ ([phone])[facility])[address] [place] [address] Monocytes/100 WBC (Bld) 9.9 % Normal 5.0-13.0 [facility] Comment on above: Performed By: #### L [id number] ####Health Information Specialist: VELMA VALADEZ ([phone])[facility])[address] [place] [address] NEUTROPHILS ABSOLUTE 5.3 10*3/uL Normal 1.8-7.5 [facility] Comment on above: Performed By: #### L [id number] ####Health Information Specialist: VELMA VALADEZ ([phone])[facility])[address] [place] [address] Neutrophils/100 WBC (Bld) 66.4 % Normal 38.0-82.0 [facility] Comment on above: Performed By: #### L [id number] ####Health Information Specialist: VELMA [phone])[facility] ([facility])[address] [place] [address] NRBC 0.0 /100 WBCs Normal 0.0-2.0 [facility] Comment on above: Performed By: #### L [id number] ####Health Information Specialist: VELMA VALADEZ ([phone])[facility])[address] [place] [address] Platelet mean volume (Bld) [Entitic vol] 10.0 fL Normal 9.0-12.7 [facility] Comment on above: Performed By: #### L [id number] ####Health Information Specialist: VELMA AVLADEZ ([phone])[facility])[address] [place] [address] Platelets (Bld) [#/Vol] 266 10*3/uL Normal 140-440 [facility] Comment on above: Performed By: #### L [id number] ####Health Information Specialist: VELMA VALADEZ ([phone])[facility] ([facility])[address] [place] [address] RBC (Bld) [#/Vol] 4.21 10*6/uL Normal 3.80-5.20 [facility] Comment on above: Performed By: #### L [id number] ####Health Information Specialist: VELMA VALADEZ ([phone])[facility])[address] [place] [address] WBC (Bld) [#/Vol] 8.1 10*3/uL Normal 3.6-10.7 [facility] Comment on above: Performed By: #### L [id number] ####Health Information Specialist: VELMA VALADEZ ([phone])[facility])[address] [place] [address] Consulton 04-04-2024 Consult Normal [facility] Consult Normal [facility] ECG 12-LEADon 04-04-2024 ECG 12-LEAD IMPRESSION: Atrial fibrillation Borderline T abnormalities, inferior leads Compared to ECG 08/28/11 Sinus rhythm no longer noted Electronically Signed On 04-04-2024 03:48:37 EDT by Sourav Swenson Normal [facility] ED Nursing Noteon 04-04-2024 ED Nursing Note Report to Delia RADHA Bond RN 04/04/24 0342 [facility] ED Nursing Note Multiple attempts ma de to call report to [facility] with 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 Will try again. Shannon Bond RN 04/04/24 0331 [facility] ED Nursing Note [facility] at bedside to transport pt to [facility]. Paperwork with EMS Shannon Bond RN 04/04/24 0314 [facility] IDNon 04-04-2024 IDN The patient is Moderately Stable - Low risk of patient condition declining or worsening The patient's goals for the shift include safety The clinical goals for the shift include therapeutic aptt [facility] IDN [facility] No Panel Informationon 04-04 Left Pop Rfx 1.1 s [facility] Acute extensive DVT in the right lower [...] the popliteal vein. 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 During the study 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 and transverse views were obtained. Pulsed wave doppler was performed. The exam was performed with the patient in the supine position. Overall the study quality was adequate. Study was technically difficult due to: bowel gas. CV CPACS Left MICHELLE 0.62 [facility] Left dorsalis pedis BP 78 mmHg [facility] Left posterior tibial 86 mmHg [facility] Right MICHELLE 0.55 [facility] Right arm BP 139 mmHg [facility] Right dorsalis pedis BP [address] [facility] Right posterior tibial 76 mmHg [facility] Right side findings: Resting [...] of RLE discovered just before PVR testing. [employer] Details A spectral Doppler analysis ultrasound [...] Electronically Signed On 04-04-2024 03:48:37 EDT by Caty Hullin G, D O - 04/04/2024 IMPRESSION: Atrial fibrillation Borderline T abnormalities, inferior leads Compared to ECG 08/28/11 Sinus rhythm no longer noted Electronically Signed On 04-04-2024 03:48:37 EDT by Sourav Swenson [employer] No Panel InformationOrdered By: Sourav Swenson on 04-04-2024 P [place] 0 degrees [employer] Work Phone: LA Interval 0 ms [employer] Work Phone: QRS [place] 40 degrees [employer] Work Phone: QRSD Interval 86 ms [employer] Work Phone: QT Interval 352 ms [employer] Work Phone: QTC Interval 411 ms [employer] Work Phone: T Wave [place] -3 degrees [employer] Work Phone: [employer] Work Phone: Progress Noteon 04-04-2024 Progress Note Normal [facility] Progress Note Normal [facility] Progress Note Normal [facility] Vital signsOrdered By: Cathy Swenson on 04-04-2024 Heart rate 82 /min bpm [employer] Work Phone: aPTT Coag (Bld) [Time]on aPTT Coag (PPP) [Time] 81.8 s High 20.0 - 30.5 s [facility] Interpretation and review of laboratory results Abnormal [facility] NOTE: The therapeuti c time for Heparin anticoagulation, based on Xa activity inhibition, is an APTT of 46-80 seconds. [facility] aPTT Coag (PPP) [Time] 81.4 s High 20.0 - 30.5 s [facility] Interpretation and review of laboratory results Abnormal [facility] NOTE: The therapeuti c time for Heparin anticoagulation, based on Xa activity inhibition, is an APTT of 46-80 seconds. [facility] aPTT Coag (Bld) [Time]Ordere d By: Devika Eisenberg on 04-04-2024 aPTT Coag (PPP) [Time] 132.2 s Critically high 20 .0 - 30.5 s [facility] Interpretation and review of laboratory results Abnormal [facility] NOTE: The therapeuti c time for Heparin anticoagulation, based on Xa activity inhibition, is an APTT of 46-80 seconds. [facility] APTTon 04-03-2024 aPTT Coag (Bld) [Time] 25.6 s Normal 20.0-30.5 [facility] Comment on above: Result Comment: BUBBA Garcia COMMENTS:NOTE: The therapeutic time for Heparin anticoagulation, based on Xa activity inhibition, is an APTT of 46-80 seconds. Performed By: #### L [id number] ####Health Information Specialist: MARYLOU MAY ([phone])[facility] ([facility])[address] [place] [address] CBC (HEMOGRAM)on 04-03-2024 Erythrocyte distribution width (RBC) [Ratio] 14.4 % Normal 11.5-15.0 [facility] Comment on above: Performed By: #### L [id number] ####Health Information Specialist: MARYLOU MAY ([phone])[facility] ([facility])[address] [place] [address] Hematocrit (Bld) [Volume fraction] 38.6 % Normal 35.0-47.0 [facility] Comment on above: Performed By: #### L [id number] ####Health Information Specialist: MARYLOU MAY ([phone])[facility] ([facility])[address] [place] [address] Hemoglobin (Bld) [Mass/Vol] 12.7 g/dL Normal 11.7-16.0 [facility] Comment on above: Performed By: #### L [id number] ####Health Information Specialist: MARYLOU MAY ([phone])[facility] ([facility])[address] [place] [address] MCH (RBC) [Entitic mass] 30.4 pg Normal 26.0-34.0 [facility] Comment on above: Performed By: #### L [id number] ####Health Information Specialist: MARYLOUSVEN MAY ([phone])[facility] ([facility])[address] MCHC 32.9 % Normal 30.5-36.0 [facility] Comment on above: Performed By: #### L [id number] ####Health Information Specialist: MARYLOUSVEN MAY ([phone])[facility]ITAL[facility]ran VELASQUEZREHOBOTH MCKIN[facility] CHRIST[facility]ALTH C[facility] SERVICESN ([facility])[address] MCV (RBC) [Entitic vol] 92.3 fL Normal 77.0-99.0 S [facility] Comment on above: Performed By: #### L [id number] ####Health Information Specialist: MARYLOU MAY ([phone])[facility]ITALSimran VELASQUEZHONORHE[facility] ([facility])[address] Platelet mean volume (Bld) [Entitic vol] 10.0 fL Normal 9.0-12.7 [facility] Comment on above: Performed By: #### L [id number] ####Health Information Specialist: MARYLOUSVEN MAY ([phone])[facility]ITAL[facility]ran VELASQUEZHONORHE[facility] ([facility])[address] Platelets (Bld) [#/Vol] 283 10*3/uL Normal 140-440 [facility] Comment on above: Performed By: #### L [id number] ####Health Information Specialist: MARYLOU LALO ([phone])[facility]ITAL[facility]ran VELASQUEZHONORHE[facility] ([facility])[address] RBC (Bld) [#/Vol] 4.18 10*6/uL Normal 3.80-5.20 [facility] Comment on above: Performed By: #### L [id number] ####Health Information Specialist: MARYLOU LALO ([phone])[facility]ITAL[facility] VELASQUEZHONORHE[facility] ([facility])[address] WBC (Bld) [#/Vol] 9.3 10*3/uL Normal 3.6-10.7 [facility] Comment on above: Performed By: #### L [id number] ####Health Information Specialist: MARYLOU MAY ([phone])[facility] RONREHOBOTH MCKINLEY CHRISTIAN HEALTH CARE SERVICESBossman ([facility])[address] [place] [address] CBC panel Auto (Bld)on 04-03 Erythrocyte distribution width (RBC) [Ratio] 14.4 % 11.5 - 15.0 % [facility] Hematocrit (Bld) [Volume fraction] 38.6 % 35.0 - 47.0 % [facility] Hemoglobin (Bld) [Mass/Vol] 12.7 g/dL 11.7 - 16.0 g/dL [facility] Interpretation and review of laboratory results Normal [facility] MCH (RBC) [Entitic mass] 30.4 pg 26.0 - 34.0 pg [facility] MCHC (RBC) [Mass/Vol] 32.9 % 30.5 - 36.0 % [facility] MCV (RBC) [Entitic vol] 92.3 fL 77.0 - 99.0 fL [facility] Platelet mean volume (Bld) [Entitic vol] 10.0 fL 9.0 - 12.7 fL [facility] Platelets (Bld) [#/Vol] 283 10*3/uL 140 - 440 10*3/uL [facility] RBC (Bld) [#/Vol] 4.18 10*6/uL 3.80 - 5.2 0 10*6/uL [facility] WBC (Bld) [#/Vol] 9.3 10*3/uL 3.6 - 10.7 10*3/uL [facility] COMPREHENSIVE METABOLIC PANE Gilberto 04-03-2024 Albumin [Mass/Vol] 4.3 g/dL Normal 3.5-5.0 [facility] Comment on above: Performed By: #### L AB103, [id number], LAB17 ####Health Information Specialist: MARYLOU MAY ([phone])[facility] RONHONORHE[facility] ([facility])[address] [place] [address] ALP [Catalytic activity/Vol] 91 U/L Normal 38-126 [facility] Comment on above: Performed By: #### L AB103, [id number], LAB17 ####Health Information Specialist: MARYLOU MAY ([phone])[facility] [place] ([facility])[address] [place] [address] [place] ALT [Catalytic activity/Vol] 10 U/L Normal 0-34 [facility] Comment on above: Performed By: #### L AB103, [id number], LAB17 ####Health Information Specialist: MARYLOU MAY ([phone])[facility] [place] ([facility])[address] Anion gap [Moles/Vol] 9 mmol/L Normal 3-13 [facility] Comment on above: Performed By: #### L AB103, [id number], LAB17 ####Health Information Specialist: MARYLOU MAY ([phone])[facility]ITALA [facility]ERN (SBHLAB)[address] AST [Catalytic activity/Vol] 19 U/L Normal 15-46 [facility] Comment on above: Performed By: #### Weston DAWSON, [id number], LAB17 ####Health Information Specialist: MARYLOU MAY ([phone])[facility] [place] ([facility])[address] [place] [address] [place] Bilirubin [Mass/Vol] 1.1 mg/dL Normal 0.2-1.3 [facility] Comment on above: Performed By: #### L AB103, QRP313, LAB17 ####Health Information Specialist: MARYLOU MAY ([phone])[facility] ([facility])[address] Calcium [Mass/Vol] 9.3 mg/dL Normal 8.4-10.4 [facility] Comment on above: Performed By: #### L AB103, [id number], LAB17 ####Health Information Specialist: MARYLOU MAY ([phone])[facility] BARBREHOBOTH MCKINLEY CHRISTIAN HEALTH CARE SERVICESN (SBHLAB)[address] [place] [address] [place] Chloride [Moles/Vol] 107 mmol/L Normal 98-107 [facility] Comment on above: Performed By: #### L AB103, [id number], LAB17 ####Health Information Specialist: MARYLOU MAY ([phone])[facility]PITALSimran VELASQUEZERTON (SBHLAB)[address] [place] [address] [place] CO2 [Moles/Vol] 20 mmol/L Low 22-30 [facility] Comment on above: Performed By: #### L AB103, CUL644, LAB17 ####Health Information Specialist: MARYLOU MAY ([phone])[facility]ITALSimran VELASQUEZREHOBOTH MCKIN[facility] CH[facility]ALTH CARE SERVICESN (SB[facility])[address] Creatinine [Mass/Vol] 1.54 mg/dL High 0.52-1.04 [facility] Comment on above: Performed By: #### Weston DAWSON, [id number], LAB17 ####Health Information Specialist: MARYLOU MAY ([phone])[facility] [place] ([facility])[address] [place] [address] [place] GLOMERULAR FILTRATION RATE ML/MIN/1.73 SQ M.PREDICTED 33.2 mL/min/1.73m*2 Low >60.0 [facility] Comment on above: Result Comment: Calc ulation based on the Chronic Kidney Disease Epidemiology Collaboration (CKD-EPI) equation refit without adjustment for race Performed By: #### Weston DAWSON, [id number], LAB17 ####Health Information Specialist: MARYLOU MAY ([phone])[facility]ITALSimran V[place]QUEZERT[place] ([facility])[address] [place] [address] [place] Glucose [Mass/Vol] 115 mg/dL High 70-100 [facility] Comment on above: Performed By: #### L AB103, CBY042, LAB17 ####Health Information Specialist: MARYLOU MAY ([phone])[facility] [place] ([facility])[address] [place] [address] [place] Potassium [Moles/Vol] 5.7 mmol/L High 3.5-5.1 [facility] Comment on above: Performed By: #### L AB103, TME139, LAB17 ####Health Information Specialist: MARYLOU MAY ([phone])[facility] RONREHOBOTH MCK[facility] CH[facility]ST[facility] HEALTH CARE SERVICESN (SBHLAB)[address] Protein [Mass/Vol] 7.7 g/dL Normal 6.3-8.2 [facility] Comment on above: Performed By: #### L AB103, [id number], LAB17 ####Health Information Specialist: MARYLOU SEGURAPerriJHONATHAN ([phone])[facility] ([facility])[address] Sodium [Moles/Vol] 135 mmol/L Normal 135-145 [facility] Comment on above: Performed By: #### L AB103, PGD965, LAB17 ####Health Information Specialist: MARYLOU SEGURAMARIELA ([phone])[facility] ([facility])[address] Urea nitrogen [Mass/Vol] 29 mg/dL High 7-17 [facility] Comment on above: Performed By: #### L AB103, EEU175, LAB17 ####Health Information Specialist: MARYLOU SEGURAMARIELA ([phone])[facility] ([facility])[address] [place] [address] CT HEAD WO IV CONTRASTon CT HEAD WO IV CONTRAST Normal [facility] CT Head WO contraston 2023 1. No acute finding. Chronic left cerebellar infarct.. Report Dictated on Electronically Signed By: Toño Tang MD Electronically Signed Date/Time: 04/03/2024 9:21 PM [facility] Patient Name: MEL CARVER RD [facility] 1940 [id number] Exam Date/Time: 04/03/2024 21:06 Procedure: CT HEAD [...] midline shift. No hydrocephalus. Left globe prosthesis. [facility] Toño Tang MD - 04/03/2024 Patient Name: MEL POP [facility] 1940 [id number] Exam Date/Time: 04/03/2024 21:06 Procedure: CT HEAD [...] Electronically Signed Date/Time: 04/03/2024 9:21 PM EDT [facility] Radiology Study observation (narrative) [facility] CT Head WO contrastOrdered B y: Toño Tang on 04-03-2024 [facility] Work Phone: CTA AORTA BL ILIOFEMORAL W W Oon 04-03-2024 CTA AORTA BL ILIOFEMORAL W WO Normal [facility] CTA Thoracic and Abdominal A zachary and Bilateral Runoff Vessels WO and W contrast Cheryl 04-03-2024 1. Severe lower extremity atherosclerotic disease. 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 2. 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 3. Severe diverticulosis. Report Dictated on Electronically Signed By: Toño Tang MD Electronically Signed Date/Time: 04/03/2024 9:36 PM EDT [facility] Patient Name: MEL CARVER RD : [...] into the mid to distal lower leg. [facility] Toño Tang MD - 04/03/2024 Patient Name: [facility]EL POP [facility] 1940 [id number] Exam Date/Time: 04/03/2024 21:14 Procedure: CTA AORTA [...] Electronically Signed Date/Time: 04/03/2024 9:36 PM EDT [facility] Radiology Study observation (narrative) [facility] metabolic 1998 panelon 04-03-2024 Albumin [Mass/Vol] 4.3 g/dL 3.5 - 5.0 g/dL [facility] ALP [Catalytic activity/Vol] 91 U/L 38 - 126 U/L [facility] ALT [Catalytic activity/Vol] 10 U/L 0 - 34 U/L [facility] Anion gap [Moles/Vol] 9 mmol/L 3 - 13 mmol/L [facility] AST [Catalytic activity/Vol] 19 U/L 15 - 46 U/L [facility] Bilirubin [Mass/Vol] 1.1 mg/dL 0.2 - 1 .3 mg/dL [facility] Calcium [Mass/Vol] 9.3 mg/dL 8.4 - 10. 4 mg/dL [facility] Chloride [Moles/Vol] 107 mmol/L 98 - 10 7 mmol/L [facility] CO2 [Moles/Vol] 20 mmol/L Low 22 - 30 mmol/L [facility] Creatinine [Mass/Vol] 1.54 mg/dL High 0.52 - 1.04 mg/dL [facility] GFR/1.73 sq M.predicted (S/P/Bld) [Vol rate/Area] 33.2 mL/min Low - PINF [facility] Comment on above: Calculation based on the Chronic Kidney Disease Epidemiology Collaboration (CKD-EPI) equation refit without adjustment for race Glucose [Mass/Vol] 115 mg/dL High 70 - 100 mg/dL [facility] Interpretation and review of laboratory results Abnormal [facility] Potassium [Moles/Vol] 5.7 mmol/L High 3.5 - 5.1 mmol/L [facility] Protein [Mass/Vol] 7.7 g/dL 6.3 - 8.2 g/dL [facility] Sodium [Moles/Vol] 135 mmol/L 135 - 145 mmol/L [facility] Urea nitrogen [Mass/Vol] 29 mg/dL High 7 - 17 mg/dL [facility] ED Nursing Noteon 04-03-2024 ED Nursing Note Normal [facility] ED Provider Noteon ED Provider Note Normal [facility] Laboratory - Chemistry and C hemistry - challengeon 04-03-2024 Troponin I.cardiac [Mass/Vol] 0.014 ng/mL NINF - 0.034 ng/mL [facility] Magnesium [Mass/Vol] 2.3 mg/dL 1.6 - 2 .3 mg/dL [facility] Laboratory - Coagulationon 0 04-03-2024 aPTT Coag (PPP) [Time] 26.7 s 20.0 - 30.5 s [facility] INR Coag (PPP) [Relative time] 1.0 {INR} 0.9 - 1.1 [facility] Comment on above: Recommended Anticoag ulant Therapy: [...] 11.7 s 9.0 - 1 2.0 s [facility] MAGNESIUMon 04-03-2024 Magnesium [Mass/Vol] 2.3 mg/dL Normal 1.6-2.3 [facility] Comment on above: Performed By: #### L [id number], [id number], LAB17 ####Health Information Specialist: MARYLOU MAY ([phone])[facility] ([facility])[address] Magnesium [Mass/Vol]on 04-03 Interpretation and review of laboratory results Normal [facility] No Panel Informationon 04-03 [facility] Interpretation and review of laboratory results Normal [facility] PROTIME AND APTTon aPTT Coag (Bld) [Time] 26.7 s Normal 20.0-30.5 [facility] Comment on above: Performed By: #### L [id number] ####Health Information Specialist: MARYLOU MAY ([phone])[facility] ([facility])[address] [place] [address] INR Coag (PPP) [Relative time] 1.0 {INR} Normal 0.9-1.1 [facility] Comment on above: Result Comment: [...] prevent Myocardial Infarction Performed By: #### L [id number] ####Health Information Specialist: MARYLOU MAY ([phone])[facility] ([facility])[address] PT Coag (PPP) [Time] 11.7 s Normal 9.0-12.0 [facility] Comment on above: Performed By: #### L [id number] ####Health Information Specialist: MARYLOUSVEN MAY ([phone])[facility] ([facility])[address] [place] [address] [place] TROPONIN Ion 04-03-2024 Troponin I.cardiac [Mass/Vol] 0.014 ng/mL Normal <0.034 [facility] Comment on above: Result Comment: BUBBA Garcia COMMENTS:Patients with high levels of Biotin oral intake (ie >5 mg/day) may have falsely decreased Troponin levels. Performed By: #### L AB103, [id number], LAB17 ####Health Information Specialist: MARYLOU MAY ([phone])[facility] ([facility])[address] Troponin I.cardiac [Mass/Vol ]on 04-03-2024 Interpretation and review of laboratory results Normal [facility] Patients with high levels of Biotin oral intake (ie >5 mg/day) may have falsely decreased Troponin levels. [facility] aPTT Coag (Bld) [Time]on aPTT Coag (PPP) [Time] 25.6 s 20.0 - 30.5 s [facility] Interpretation and review of laboratory results Normal [facility] NOTE: The therapeuti c time for Heparin anticoagulation, based on Xa activity inhibition, is an APTT of 46-80 seconds. [facility] MR Lower leg - left WO [...] MD Electronically Signed Date/Time: 06/16/2023 8:10 AM [facility] [employer] Patient Name: MEL CARVER RD : [...] and lateral ankle resulting from ORIF hardware. [facility] Dimas Woodward MD - 06/16/2023 [facility] Name: [facility] POP : 1940 [id number] Exam Date/Time: 06/15/2023 16:21 Procedure: MR TIBIA [...] MD Electronically Signed Date/Time: 06/16/2023 8:10 AM [facility] [employer] MR Lower leg - left WO and W contrast IVOrdered By: Dimas Woodward on 06-16-2023 [facility] [employer] Work Phone: MR Lower leg - left WO and W contrast Cheryl 06-15-2023 Radiology Study observation (narrative) [facility] No Panel Informationon 05-24 No evidence of venous thrombus in the left lower extremity. Report Dictated on Electronically Signed By: Yasmany Whyte MD Electronically Signed Date/Time: 05/24/2023 11:42 AM [facility] [employer] Patient Name: MEL CARVER RD : [...] augmentation and normal response to Valsalva maneuver. [facility] Yasmany Whyte MD - 05/24/2023 Patient [...] MD Electronically Signed Date/Time: 05/24/2023 11:42 AM [facility] Cheryl 02-16 Patient [...] MD Electronically Signed Date/Time: 03/11/2023 10:28 AM [facility] Efrain Yi MD - 03/11/2023 [...] MD Electronically Signed Date/Time: 03/11/2023 10:28 AM [facility] [employer] CT Neck W contrast IVOrdered By: Efrain Yi on 03-11-2023 [employer] Work Phone: CT Neck W contrast Cheryl 02-16 Radiology Study observation (narrative) [facility] US Head and neck soft tissue on 02-24-2023 Indeterminate soft tissue nodules in the patients area of palpable concern in the left neck, which may represent enlarged left submandibular gland with obstructing sialolith and adjacent enlarged lymph node. Recommend further evaluation with contrast-enhanced neck CT. Report Dictated on Electronically Signed By: Ryan Mccollum MD Electronically Signed Date/Time: 02/24/2023 8:23 AM [facility] [employer] Patient Name: MEL CARVER RD : [...] measuring 1.8 x 1.6 x 1.4 cm. [facility] Ryan Mccollum MD - 02/24/2023 [...] Electronically Signed Date/Time: 02/24/2023 8:23 AM EDT [facility] US Head and neck soft tissue Ordered By: Ryan Mccollum on 02-24-2023 [facility] Work Phone: US Head and neck soft tissue on 02-22-2023 Radiology Study observation (narrative) [facility] CONSULT PROGon 06-29-2022 CONSULT PROG HNO ID: [id number] Author: Nemo Petty, SEBASTIAN.EDUCATION PROGRAM COORDINATOR Service: Wound/Ostomy Author Type: Nurse Practitioner Type: Consult Progress Note Filed: 06/29/2022 12:51 PM Note Text: WOUND CARE SERVICE PROGRESS FILLER SHREDDER NOTE SERVICE DATE: 06/29/2022 SERVICE TIME: 10:20 TIME SPENT (minutes): 30 REASON FOR CONSULT: follow up wound care visit to reassess skin/wounds CHIEF COMPLAINT: right finger wound Subjective HISTORY OF PRESENT ILLNESS: Ms. Jose Alberto Castillo is a 81 year old female who is seen today with Delia Bruno, Wound/commercial pest control representative, as a follow up wound care visit [...] Wound Image Site Assessment Red;Intact Allie-Wound Assessment [place] Drainage Amount None Treatments Protective Barrier Ointment Dressing Foam- Adhesive Active Orders Date Order Priority Status Authorizing Provider 06/28/22 1423 zinc oxide 20 % ointment Active Iwona Chu DO 06/21/22 1248 DRESSING CARE (SPECIFY) ([place]) Routine Active Fidel Carmen APRN.EDUCATION PROGRAM COORDINATOR - Specify:: Apply allevyn foam to coccyx, peel down every shift to assess skin and to apply zinc oxide, change every 3 days or if soiled. 06/21/22 1248 zinc oxide 20 % Active Fidel Carmen APRN.EDUCATION PROGRAM COORDINATOR Wound 06/16/22 Incision Knee Left;Posterior (Active) Assessments 06/29/2022 10:27 AM Wound Image Site Assessment Dry;Intact Allie-Wound Assessment Intact Closure Sutures Drainage Amount None Treatments Open to Air No Linked orders to display Wound 06/21/22 0948 Atypical Wound Finger (Comment which one) Right (Active) Assessments 06/29/2022 10:23 AM Wound Image Site Assessment Red;[place] Allie-Wound Assessment Intact Wound Length (cm) 2 cm Wound Width (cm) 2.5 cm Wound Surface Area (cm2) 5 cm2 Wound Depth (cm) 0.1 cm Wound Volume (cm3) 0.5 (more content not included)... Normal [facility] NUTRITIONon 06-29-2022 NUTRITION HNO ID: [id number] Author: Iwona Pelayo RD Service: Nutrition Therapy Author Type: Registered Dietitian Type: Nutrition Filed: 06/29/2022 1:38 PM Note Text: NUTRITION THERAPY PROGRESS NOTE SERVICE DATE: 06/29/2022 SERVICE TIME: 13:30 Nutrition Assessment: Recommended Malnutrition Diagnosis: No Malnutrition Identified (06/23/22 1109 : Parul Mcallister RD) Estimated kilocalorie needs: 3054-8624 Calorie Calculation Method: 25-30 kcals/kg Estimated protein [...] 2022 TIME: 10:17 AM Normal [facility] PT EDon 06-29-2022 PT ED HNO ID: [id number] Author: Joana Tolbert RPh Service: Pharmacy Author [...] information Outcomes not met: N/A Joana Tolbert RPh Normal [facility] CNDSon 06-28-2022 CNDS HNO ID: [id number] Author: Iwona Chu DO Service: Hospital Medicine [...] micropuncture needle and serially upsized to a 5-Jordanian sheath. A venogram was then performed, which [...] time, the sheath was upsized to an 8-Jordanian sheath. An intravascular ultrasound was performed. This [...] (more content not included)... Normal [facility] NURSING PROGon 06-28-2022 NURSING PROG HNO ID: [id number] Author: John Castro RN Service: Nursing Author Type: Registered Nurse Type: Nursing Progress Note Filed: 06/28/2022 2:28 PM Note Text: Other: Ambulatory pulse ox per Dr. Chu SpO2 on Room air at rest: 91% SpO2 while ambulating on Room air: 83% SpO2 while ambulating on 2 liters of oxygen: 91% Normal [facility] Bacteria Spec Resp Culton Bacteria identified Respiratory culture Nom (Unsp spec) CULTURE, RESPIRATORY: Few Normal respiratory radha present ORGANISM ID: 1 Few Lactose fermenting gram negative rods Insignificant colony count. No further workup. GRAM STAIN: Rare Gram positive cocci Few Polymorphonuclear leukocytes Few Epithelial cells Abnormal [facility] Comment on above: Performed By: #### 3 2355-0 #### [facility] CLIA [id number] [address] CONSULT PROGon 06-25-2022 CONSULT PROG HNO ID: [id number] Author: Cirilo Yip RPh Service: Pharmacy Author Type: Pharmacist Type: Consult Progress Note Filed: 06/25/2022 1:49 PM Note Text: PHARMACY ORAL ANTICOAGULATION PATIENT EDUCATION NOTE Oral anticoagulant: apixaban Indication: DVT/PE Patient New to medication: Yes LEARNERS Persons Present: Patient Primary Learner: Patient Hoist Operator Present: No Patient educated on the followin. [...] 2022 TIME: 1:48 PM Normal [facility] Bacteria Spec Resp Culton Bacteria identified Respiratory culture Nom (Unsp spec) CULTURE, RESPIRATORY: Moderate Normal respiratory radha present GRAM STAIN: Moderate Mixed oral radha Few Polymorphonuclear leukocytes Few Epithelial cells Abnormal [facility] Comment on above: Performed By: #### 3 2355-0 ####[facility] LABORATORYCLIA [id number] [place] [address] [place] Basic metabolic 2000 panelon 06-24-2022 Anion gap [Moles/Vol] 10 mmol/L Normal 9-18 [facility] Comment on above: Order Comment: Speci men Type: BLOOD SPECIMENOrdering Facility: [facility] Address: [address] [place] [address] Performed By: #### 2 4321-2, 31564-5 ####[facility]ORYCLIA [id number] [place] [address] [place] Calcium [Mass/Vol] 9.0 mg/dL Normal 8.5-10.2 [facility] Comment on above: Order Comment: Speci men Type: BLOOD SPECIMENOrdering Facility: [facility] Address: [address] [address] Performed By: #### 2 4321-2, 30899-1 ####[facility]ORYCLIA [id number] [place] [address] [place] Chloride [Moles/Vol] 103 mmol/L Normal 97-105 [facility] Comment on above: Order Comment: Speci men Type: BLOOD SPECIMENOrdering Facility: [facility] Address: [address] [address] Performed By: #### 2 4321-2, 59509-2 ####[facility]ORYCLIA [id number] [address] OF [facility] CO2 [Moles/Vol] 23 mmol/L Normal 22-30 [facility] Comment on above: Order Comment: Speci men Type: BLOOD SPECIMENOrdering Facility: [facility] Address: [address] [place] [address] Performed By: #### 2 4321-2, 81583-4 ####[facility]ORYCLIA [id number] [address] OF [facility] Creatinine [Mass/Vol] 0.73 mg/dL Normal 0.58-0.96 [facility] Comment on above: Order Comment: Speci men Type: BLOOD SPECIMENOrdering Facility: [facility] Address: [address] [place] [address] Performed By: #### 2 4321-2, 67833-7 ####[facility] [id number] [address] ESTIMATED GLOMERULAR FILTRATION RATE 82 mL/min/1.73m??? Normal >=60 [facility] Comment on above: Order Comment: Speci men Type: BLOOD SPECIMENOrdering Facility: [facility] Address: [address] [place] [address] Result Comment: Isa mated Glomerular Filtration Rate [...] actual GFR. Performed By: #### 2 4321-2, 02811-0 ####[facility]ORYCLIA [id number] [address] [place] Glucose [Mass/Vol] 165 mg/dL High 74-99 [facility] Comment on above: Order Comment: Rhina mason Type: BLOOD SPECIMENOrdering Facility: [facility] Address: [address] [place] [address] Result Comment: The [place] Diabetes Association (ADA) provides guidance for cutoff [...] Standards of Medical Care in Diabetes 2016, [place] Diabetes Association. Diabetes Care. 2016.39(Suppl 1). Performed By: #### 2 4321-2, 20605-9 ####[facility]ORYCLIA [id number] [place] [address] [place] Potassium [Moles/Vol] 5.0 mmol/L Normal 3.7-5.1 [facility] Comment on above: Order Comment: Rhina mason Type: BLOOD SPECIMENOrdering Facility: [facility] Address: [address] [place] [address] Performed By: #### 2 4321-2, 70441-2 ####[facility]ORYCLIA [id number] [place] [address] [place] Sodium [Moles/Vol] 136 mmol/L Normal 136-144 [facility] Comment on above: Order Comment: Rhina mason Type: BLOOD SPECIMENOrdering Facility: [facility] Address: [address] [place] [address] Performed By: #### 2 4321-2, 63352-7 ####[facility]ATORYCLIA [id number] [place] [address] [place] Urea nitrogen [Mass/Vol] 14 mg/dL Normal 7-21 [facility] Comment on above: Order Comment: Rhina men Type: BLOOD SPECIMENOrdering Facility: [facility] Address: [address] [address] Performed By: #### 2 4321-2, 27123-2 ####[facility]ORYCLIA [id number] [address] CBC panel Auto (Bld)on 06-24 Erythrocyte distribution width (RBC) [Ratio] 17.0 % High 11.5-15.0 [facility] Comment on above: Order Comment: Speci men Type: BLOOD SPECIMENOrdering Facility: [facility] Address: [address] [address] Performed By: #### 5 8410-2 ####[facility]ORYCLIA [id number] [address] Hematocrit (Bld) [Volume fraction] 27.2 % Low 36.0-46.0 [facility] Comment on above: Order Comment: Speci men Type: BLOOD SPECIMENOrdering Facility: [facility] Address: [address] [place] [address] Performed By: #### 5 8410-2 ####[facility]ORYCLIA [id number] [address] Hemoglobin (Bld) [Mass/Vol] 8.9 g/dL Low 11.5-15.5 [facility] Comment on above: Order Comment: Speci men Type: BLOOD SPECIMENOrdering Facility: [facility] Address: [address] [place] [address] Performed By: #### 5 8410-2 ####[facility]ORYCLIA [id number] [address] MCH (RBC) [Entitic mass] 30.9 pg Normal 26.0-34.0 [facility] Comment on above: Order Comment: Speci men Type: BLOOD SPECIMENOrdering Facility: [facility] Address: [address] [place] [address] Performed By: #### 5 8410-2 ####[facility]ORYCLIA [id number] [address] MCHC (RBC) [Mass/Vol] 32.7 g/dL Normal 30.5-36.0 [facility] Comment on above: Order Comment: Speci men Type: BLOOD SPECIMENOrdering Facility: [facility] Address: [address] [place] [address] Performed By: #### 5 8410-2 ####[facility]ATORYCLIA [id number] [address] MCV (RBC) [Entitic vol] 94.4 fL Normal 80.0-100.0 [facility] Comment on above: Order Comment: Speci men Type: BLOOD SPECIMENOrdering Facility: [facility] Address: [address] [place] [address] Performed By: #### 5 8410-2 ####[facility]ORYCLIA [id number] [address] Nucleated RBC (Bld) [#/Vol] 0.03 10*3/uL High <0.01 [facility] Comment on above: Order Comment: Speci men Type: BLOOD SPECIMENOrdering Facility: [facility] Address: [address] [place] [address] Performed By: #### 5 8410-2 ####[facility]ATORYCLIA [id number] [address] OF [facility] Platelet mean volume (Bld) [Entitic vol] 9.8 fL Normal 9.0-12.7 [facility] Comment on above: Order Comment: Speci men Type: BLOOD SPECIMENOrdering Facility: [facility] Address: [address] [place] [address] Performed By: #### 5 8410-2 ####[facility]ATORYCLIA [id number] [address] Platelets (Bld) [#/Vol] 241 10*3/uL Normal 150-400 [facility] Comment on above: Order Comment: Speci men Type: BLOOD SPECIMENOrdering Facility: [facility] Address: [address] [address] Performed By: #### 5 8410-2 ####[facility]ATORYCLIA [id number] [address] OF [facility] RBC (Bld) [#/Vol] 2.88 10*6/uL Low 3.90-5.20 [facility] Comment on above: Order Comment: Speci men Type: BLOOD SPECIMENOrdering Facility: [facility] Address: [address] [address] Performed By: #### 5 8410-2 ####[facility]ATORYCLIA [id number] [address] WBC (Bld) [#/Vol] 6.37 10*3/uL Normal 3.70-11.00 [facility] Comment on above: Order Comment: Speci men Type: BLOOD SPECIMENOrdering Facility: [facility] Address: [address] [place] [address] Performed By: #### 5 8410-2 ####[facility]ATORYCLIA [id number] [address] NT-proBNP SerPl-ncon 06-24 Natriuretic peptide.B prohormone N-Terminal [Mass/Vol] 2971 pg/mL High <450 [facility] Comment on above: Order Comment: Speci men Type: BLOOD SPECIMENOrdering Facility: [facility] Address: [address] [place] [address] Performed By: #### 2 4321-2, 52468-3 ####[facility]ATORYCLIA [id number] [address] aPTT PPPon 06-24-2022 aPTT Coag (PPP) [Time] 64.2 s High 23.0-32.4 [facility] Comment on above: Order Comment: Speci men Type: BLOOD SPECIMEN Ordering [facility]: [facility] Address: [address] [place] [address] Performed By: #### T SCR #### [facility] CLIA [id number] [address] aPTT Coag (PPP) [Time] 45.8 s High 23.0-32.4 [facility] Comment on above: Order Comment: Speci men Type: BLOOD SPECIMENOrdering Facility: [facility] Address: [address] [place] [address] Performed By: #### 3 2355-0 #### [facility] CLIA [id number] [address] aPTT Coag (PPP) [Time] 116.8 s High 28.5-34.0 [facility] Comment on above: Order Comment: Speci men Type: BLOOD SPECIMENOrdering Facility: [facility] Address: [address] [place] [address] Performed By: #### 1 4979-9 ####[facility]ORYCLIA [id number] [address] ALLIED HEALTHon 06-23-2022 ALLIED HEALTH HNO ID: [id number] Author: RT Rhina(R) Service: Radiology Author Type: [...] 23, 2022 9:41 PM Normal [facility] CBC panel Auto (Bld)on 06-23 Erythrocyte distribution width (RBC) [Ratio] 16.6 % High 11.5-15.0 [facility] Comment on above: Order Comment: Speci men Type: BLOOD SPECIMENOrdering Facility: [facility] Address: [address] [place] [address] Performed By: #### 5 8410-2 ####[facility]ATORYCLIA [id number] [address] OF [facility] Hematocrit (Bld) [Volume fraction] 29.6 % Low 36.0-46.0 [facility] Comment on above: Order Comment: Speci men Type: BLOOD SPECIMENOrdering Facility: [facility] Address: [address] [place] [address] Performed By: #### 5 8410-2 ####[facility]ORYCLIA [id number] [address] OF [facility] Hemoglobin (Bld) [Mass/Vol] 9.5 g/dL Low 11.5-15.5 [facility] Comment on above: Order Comment: Speci men Type: BLOOD SPECIMENOrdering Facility: [facility] Address: [address] [place] [address] Performed By: #### 5 8410-2 ####[facility]ORYCLIA [id number] [address] [place] MCH (RBC) [Entitic mass] 30.4 pg Normal 26.0-34.0 [facility] Comment on above: Order Comment: Speci men Type: BLOOD SPECIMENOrdering Facility: [facility] [facility] Address: [address] [place] [address] Performed By: #### 5 8410-2 ####[facility] LABORATORYCLIA [id number] [address] [place] MCHC (RBC) [Mass/Vol] 32.1 g/dL Normal 30.5-36.0 [facility] Comment on above: Order Comment: Speci men Type: BLOOD SPECIMENOrdering Facility: [facility] Address: [address] [place], [place] [address] Performed By: #### 5 8410-2 ####[facility] LABORATORYCLIA [id number] [address] MCV (RBC) [Entitic vol] 94.6 fL Normal 80.0-100.0 [facility] Comment on above: Order Comment: Speci men Type: BLOOD SPECIMENOrdering Facility: [facility] Address: [address] [place] [address] Performed By: #### 5 8410-2 ####[facility] LABORATORYCLIA [id number] [address] Nucleated RBC (Bld) [#/Vol] 0.07 10*3/uL High <0.01 [facility] Comment on above: Order Comment: Speci men Type: BLOOD SPECIMENOrdering Facility: [facility] Address: [address] [place] [address] Performed By: #### 5 8410-2 ####[facility] LABORATORYCLIA [id number] [address] Platelet mean volume (Bld) [Entitic vol] 9.9 fL Normal 9.0-12.7 [facility] Comment on above: Order Comment: Speci men Type: BLOOD SPECIMENOrdering Facility: [facility] Address: [address] [place] [address] Performed By: #### 5 8410-2 ####[facility] LABORATORYCLIA [id number] [address] Platelets (Bld) [#/Vol] 241 10*3/uL Normal 150-400 [facility] Comment on above: Order Comment: Speci men Type: BLOOD SPECIMENOrdering Facility: [facility] Address: [address] [place] [address] Performed By: #### 5 8410-2 ####[facility] LABORATORYCLIA [id number] [address] [place] RBC (Bld) [#/Vol] 3.13 10*6/uL Low 3.90-5.20 [facility] Comment on above: Order Comment: Speci men Type: BLOOD SPECIMENOrdering Facility: [facility] Address: [address] [place] [address] Performed By: #### 5 8410-2 ####[facility] LABORATORYCLIA [id number] [address] WBC (Bld) [#/Vol] 6.86 10*3/uL Normal 3.70-11.00 [facility] Comment on above: Order Comment: Speci men Type: BLOOD SPECIMENOrdering Facility: [facility] Address: [address] [place] [address] Performed By: #### 5 8410-2 ####[facility] LABORATORYCLIA [id number] [place] [id number] [facility] NUTRITIONon 06-23-2022 NUTRITION HNO ID: [id number] Author: Parul Mcallister RD Service: Nutrition Therapy Author Type: Registered Dietitian Type: Nutrition Filed: 06/23/2022 2:28 PM Note Text: NUTRITION THERAPY INITIAL ASSESSMENT SERVICE DATE: 06/23/2022 SERVICE TIME: 11:09 AM Nutrition Assessment: Recommended Malnutrition Diagnosis: No Malnutrition Identified Nutrition Diagnosis: Problem: Suboptimal protein/energy intake Related to: Inability to consume sufficient nutrients As evidenced by: Patient/family self-report;Intake records Estimated kilocalorie needs: [phone] Calorie Calculation Method: 25-30 kcals/kg Estimated protein [...] 2022 TIME: 11:09 AM Normal [facility] XR CHEST 2V FRONTAL/LATon XR CHEST [...] sites of pneumonia. Small bilateral pleural effusions. Ripening Room Attendant: DEVEN Transcribe Date/Time: Jun 24 2022 6:34A Dictated by : DI MINER MD This examination was interpreted and the report reviewed and electronically signed by: DI MINER MD on Jun 24 2022 6:36AM EST [id number] Normal [facility] aPTT PPPon 06-23-2022 aPTT Coag (PPP) [Time] 46.7 s High 23.0-32.4 [facility] Comment on above: Order Comment: Rhina mason Type: BLOOD SPECIMENOrdering Facility: [facility] Address: [address] [place] [address] Performed By: #### 1 4979-9 ####[facility] LABORATORYCLIA [id number] [address] aPTT Coag (PPP) [Time] 53.8 s High 23.0-32.4 [facility] Comment on above: Order Comment: Rhina mason Type: BLOOD SPECIMENOrdering Facility: [facility] Address: [address] [place] [address] Performed By: #### 1 4979-9 ####[facility] LABORATORYCLIA [id number] [address] aPTT Coag (PPP) [Time] 114.5 s High 23.0-32.4 [facility] Comment on above: Order Comment: Rhina mason Type: BLOOD SPECIMEN [facility] Address: [address] [place] [address] Performed By: #### T SCR #### [facility] CLIA [id number] [address] CBC W Auto Differential pane l (Bld)on 06-22-2022 Basophils (Bld) [#/Vol] 0.03 10*3/uL Normal <0.11 [facility] Comment on above: Order Comment: Speci men Type: BLOOD SPECIMENOrdering Facility: [facility] Address: [address] [place] [address] Result Comment: Diff erential confirmed by visual scan of peripheral blood smear slide Performed By: #### 5 7021-8 ####[facility]ATORYCLIA [id number] [address] [place] Basophils/100 WBC (Bld) 0.5 % Normal [facility] Comment on above: Order Comment: Speci men Type: BLOOD SPECIMENOrdering Facility: [facility] Address: [address] [place] [address] Performed By: #### 5 7021-8 ####[facility]ORATORYCLIA [id number] [address] [place] Differential cell count method Nom (Bld) Auto Normal [facility] Comment on above: Order Comment: Speci men Type: BLOOD SPECIMENOrdering Facility: [facility] Address: [address] [place] [address] Performed By: #### 5 7021-8 ####[facility]ORATORYCLIA [id number] [place] [address] [place] Eosinophils (Bld) [#/Vol] 10*3/uL Normal <0.46 [facility] Comment on above: Order Comment: Speci men Type: BLOOD SPECIMENOrdering Facility: [facility] Address: [address] [place] [address] Performed By: #### 5 7021-8 ####[facility]ORATORYCLIA [id number] [address] [place] Eosinophils/100 WBC (Bld) 0.0 % Normal [facility] Comment on above: Order Comment: Speci men Type: BLOOD SPECIMENOrdering Facility: [facility] Address: [address] [place] [address] Performed By: #### 5 7021-8 ####[facility]ORATORYCLIA [id number] [address] [place] Erythrocyte distribution width (RBC) [Ratio] 16.2 % High 11.5-15.0 [facility] Comment on above: Order Comment: Speci men Type: BLOOD SPECIMENOrdering Facility: [facility] Address: [address] [place] [address] Performed By: #### 5 7021-8 ####[facility] LABORATORYCLIA [id number] [address] [place] Hematocrit (Bld) [Volume fraction] 25.1 % Low 36.0-46.0 [facility] Comment on above: Order Comment: Speci men Type: BLOOD SPECIMENOrdering Facility: [facility] Address: [address] [place] [address] Performed By: #### 5 7021-8 ####[facility] LABORATORYCLIA [id number] [address] [place] Hemoglobin (Bld) [Mass/Vol] 8.4 g/dL Low 11.5-15.5 [facility] Comment on above: Order Comment: Speci men Type: BLOOD SPECIMENOrdering Facility: [facility] Address: [address] [place] [address] Performed By: #### 5 7021-8 ####[facility] LABORATORYCLIA [id number] [address] [place] Immature granulocytes (Bld) [#/Vol] 0.60 10*3/uL High <0.10 [facility] Comment on above: Order Comment: Speci men Type: BLOOD SPECIMENOrdering Facility: [facility] Address: [address] [place] [address] Performed By: #### 5 7021-8 ####[facility] LABORATORYCLIA [id number] [address] Immature granulocytes/100 WBC (Bld) 10.3 % Normal [facility] Comment on above: Order Comment: Speci men Type: BLOOD SPECIMENOrdering Facility: [facility] Address: [address] [place], [place] [id number] Performed By: #### 5 7021-8 ####[facility] LABORATORYCLIA [id number] [address] [place] Lymphocytes (Bld) [#/Vol] 1.38 10*3/uL Normal 1.00-4.00 [facility] Comment on above: Order Comment: Speci men Type: BLOOD SPECIMENOrdering Facility: [facility] Address: [address] [place] [address] Performed By: #### 5 7021-8 ####[facility] LABORATORYCLIA [id number] [address] Lymphocytes/100 WBC (Bld) 23.7 % Normal [facility] Comment on above: Order Comment: Speci men Type: BLOOD SPECIMENOrdering Facility: [facility] Address: [address] [place] [address] Performed By: #### 5 7021-8 ####[facility] LABORATORYCLIA [id number] [address] STATES OF [facility] MCH (RBC) [Entitic mass] 31.2 pg Normal 26.0-34.0 [facility] Comment on above: Order Comment: Speci men Type: BLOOD SPECIMENOrdering Facility: [facility] Address: [address] [place] [address] Performed By: #### 5 7021-8 ####[facility] LABORATORYCLIA [id number] [address] [place] MCHC (RBC) [Mass/Vol] 33.5 g/dL Normal 30.5-36.0 [facility] Comment on above: Order Comment: Speci men Type: BLOOD SPECIMENOrdering Facility: [facility] Address: [address] [place] [address] Performed By: #### 5 7021-8 ####[facility] LABORATORYCLIA [id number] [address] [place] MCV (RBC) [Entitic vol] 93.3 fL Normal 80.0-100.0 [facility] Comment on above: Order Comment: Speci men Type: BLOOD SPECIMENOrdering Facility: [facility] Address: [address] [place] [address] Performed By: #### 5 7021-8 ####[facility]ATORYCLIA [id number] [address] STATES [facility] Monocytes (Bld) [#/Vol] 0.50 10*3/uL Normal <0.87 [facility] Comment on above: Order Comment: Speci men Type: BLOOD SPECIMENOrdering Facility: [facility] Address: [address] [place] [place] [address] Performed By: #### 5 7021-8 ####[facility]ATORYCLIA [id number] [address] Monocytes/100 WBC (Bld) 8.6 % Normal A [facility] Comment on above: Order Comment: Speci men Type: BLOOD SPECIMENOrdering Facility: [facility] Address: [address] [place] [address] Performed By: #### 5 7021-8 ####[facility]ORATORYCLIA [id number] [address] Neutrophils (Bld) [#/Vol] 3.31 10*3/uL Normal 1.45-7.50 [facility] Comment on above: Order Comment: Speci men Type: BLOOD SPECIMENOrdering Facility: [facility] Address: [address] [place] [address] Performed By: #### 5 7021-8 ####[facility]ATORYCLIA [id number] [address] Neutrophils/100 WBC (Bld) 56.9 % Normal [facility] Comment on above: Order Comment: Speci men Type: BLOOD SPECIMENOrdering Facility: [facility] Address: [address] [place] [address] Performed By: #### 5 7021-8 ####[facility]ATORYCLIA [id number] [address] Nucleated RBC (Bld) [#/Vol] 0.10 10*3/uL High <0.01 [facility] Comment on above: Order Comment: Speci men Type: BLOOD SPECIMENOrdering Facility: [facility] Address: [address] [place] [address] Performed By: #### 5 7021-8 ####[facility] LABORATORYCLIA [id number] [address] [place] Nucleated RBC/100 WBC (Bld) [Ratio] 1.7 /100 WBC Normal [facility] Comment on above: Order Comment: Speci men Type: BLOOD SPECIMENOrdering Facility: [facility] Address: [address] [place] [address] Performed By: #### 5 7021-8 ####[facility] LABORATORYCLIA [id number] [address] [place] Platelet mean volume (Bld) [Entitic vol] 9.7 fL Normal 9.0-12.7 [facility] Comment on above: Order Comment: Speci men Type: BLOOD SPECIMENOrdering Facility: [facility] Address: [address] [place] [address] Performed By: #### 5 7021-8 ####[facility] LABORATORYCLIA [id number] [address] [place] Platelets (Bld) [#/Vol] 209 10*3/uL Normal 150-400 [facility] Comment on above: Order Comment: Speci men Type: BLOOD SPECIMENOrdering Facility: [facility] Address: [address] [place] [address] Performed By: #### 5 7021-8 ####[facility] LABORATORYCLIA [id number] [address] [place] RBC (Bld) [#/Vol] 2.69 10*6/uL Low 3.90-5.20 [facility] Comment on above: Order Comment: Speci men Type: BLOOD SPECIMENOrdering Facility: [facility] Address: [address] [place], [place] [address] Performed By: #### 5 7021-8 ####[facility] LABORATORYCLIA [id number] [place] [address] [facility] WBC (Bld) [#/Vol] 5.82 10*3/uL Normal 3.70-11.00 [facility] Comment on above: Order Comment: Speci men Type: BLOOD SPECIMENOrdering Facility: [facility] Address: [place] [address] Performed By: #### 5 7021-8 ####[facility] LABORATORYCLIA [id number] [place] [address] [facility] CONSULT PROGon 06-22-2022 CONSULT PROG HNO ID: [id number] Author: Eliza Martin APRN.ENGLISH TUTOR Service: Gastroenterology Author Type: Nurse Specialist Type: [...] (more content not included)... Normal [facility] Comprehensive metabolic 2000 panelon 06-22-2022 Albumin [Mass/Vol] 2.4 g/dL Low 3.9-4.9 [facility] Comment on above: Order Comment: Speci men Type: BLOOD SPECIMENOrdering Facility: [facility] Address: [address] [place] [address] Performed By: #### 2 4323-8 ####[facility] LABORATORYCLIA [id number] [address] STATES [facility] ALP [Catalytic activity/Vol] 129 U/L High 34-123 [facility] Comment on above: Order Comment: Speci men Type: BLOOD SPECIMENOrdering Facility: [facility] Address: [address] [place] [address] Performed By: #### 2 4323-8 ####[facility] LABORATORYCLIA [id number] [address] ALT With P-5'-P [Catalytic activity/Vol] 21 U/L Normal 7-38 [facility] Comment on above: Order Comment: Speci men Type: BLOOD SPECIMENOrdering Facility: [facility] Address: [address] [place] [address] Performed By: #### 2 4323-8 ####[facility] LABORATORYCLIA [id number] [address] Anion gap [Moles/Vol] 10 mmol/L Normal 9-18 [facility] Comment on above: Order Comment: Speci men Type: BLOOD SPECIMENOrdering Facility: [facility] Address: [address] [place] [address] Performed By: #### 2 4323-8 ####[facility] LABORATORYCLIA [id number] [address] STATES [facility] AST With P-5'-P [Catalytic activity/Vol] 19 U/L Normal 13-35 [facility] Comment on above: Order Comment: Speci men Type: BLOOD SPECIMENOrdering Facility: [facility] Address: [address] [place] [address] Performed By: #### 2 4323-8 ####[facility] LABORATORYCLIA [id number] [address] [place] Bilirubin [Mass/Vol] 0.6 mg/dL Normal 0.2-1.3 [facility] Comment on above: Order Comment: Speci men Type: BLOOD SPECIMENOrdering Facility: [facility] Address: [address] [address] Performed By: #### 2 4323-8 ####[facility] LABORATORYCLIA [id number] [place] [address] [place] Calcium [Mass/Vol] 8.6 mg/dL Normal 8.5-10.2 [facility] Comment on above: Order Comment: Speci men Type: BLOOD SPECIMENOrdering Facility: [facility] Address: [address] [place] [address] Performed By: #### 2 4323-8 ####[facility]OR[facility]ORYCLIA [id number] [place] [address] [place] Chloride [Moles/Vol] 105 mmol/L Normal 97-105 [facility] Comment on above: Order Comment: Speci men Type: BLOOD SPECIMENOrdering Facility: [facility] Address: [address] [place] [address] Performed By: #### 2 4323-8 ####[facility]ORATORYCLIA [id number] [address] [place] CO2 [Moles/Vol] 21 mmol/L Low 22-30 [facility] Comment on above: Order Comment: Speci men Type: BLOOD SPECIMENOrdering Facility: [facility] Address: [address] [address] Performed By: #### 2 4323-8 ####[facility] LABORATORYCLIA [id number] [place] [address] [place] Creatinine [Mass/Vol] 0.88 mg/dL Normal 0.58-0.96 [facility] Comment on above: Order Comment: Speci men Type: BLOOD SPECIMENOrdering Facility: [facility] Address: [address] [address] Performed By: #### 2 4323-8 ####[facility]ATORYCLIA [id number] [place] [address] [place] ESTIMATED GLOMERULAR FILTRATION RATE 66 mL/min/1.73m??? Normal >=60 [facility] Comment on above: Order Comment: Rhina isabella Type: BLOOD SPECIMENOrdering Facility: [facility] Address: [address] [place] [address] Result Comment: Isa mated Glomerular Filtration Rate [...] actual GFR. Performed By: #### 2 4323-8 ####[facility] CENTERCLIA [id number] [place] [address] [place] Glucose [Mass/Vol] 95 mg/dL Normal 74-99 [facility] Comment on above: Order Comment: Speci isabella Type: BLOOD SPECIMENOrdering Facility: [facility] Address: [address] [place] [address] Result Comment: The [place] Diabetes Association (ADA) provides guidance for cutoff [...] Standards of Medical Care in Diabetes 2016, [employer]. Diabetes Care. 2016.39(Suppl 1). Performed By: #### 2 4323-8 ####[facility] LABORATORYCLIA [id number] [place] [id number] [place] Potassium [Moles/Vol] 4.7 mmol/L Normal 3.7-5.1 [facility] Comment on above: Order Comment: Speci men Type: BLOOD SPECIMENOrdering Facility: [facility] Address: [address] [place] [address] Performed By: #### 2 4323-8 ####[facility] LABORATORYCLIA [id number] [place] [address] [place] Protein [Mass/Vol] 5.3 g/dL Low 6.3-8.0 [facility] Comment on above: Order Comment: Speci men Type: BLOOD SPECIMENOrdering Facility: [facility] Address: [address] [place] [address] Performed By: #### 2 4323-8 ####[facility] LABORATORYCLIA [id number] [place] [address] [place] Sodium [Moles/Vol] 136 mmol/L Normal 136-144 [facility] Comment on above: Order Comment: Speci men Type: BLOOD SPECIMENOrdering Facility: [facility] Address: [address] [place] [address] Performed By: #### 2 4323-8 ####[facility]ORATORYCLIA [id number] [place] [address] [place] Urea nitrogen [Mass/Vol] 7 mg/dL Normal 7-21 [facility] Comment on above: Order Comment: Speci men Type: BLOOD SPECIMENOrdering Facility: [facility] Address: [address] [place] [address] Performed By: #### 2 4323-8 ####[facility] LABORATORYCLIA [id number] [place] [address] [place] H. pylori IgG IA Qlon 2021 H. PYLORI IGG, QUAL Negative Normal Negative [facility] Comment on above: Order Comment: Speci men Type: BLOOD SPECIMENOrdering Facility: [facility] Address: [address] [place] [address] Result Comment: Shakeel ot exclude H. pylori infection if the specimen collected 3-4 weeks after onset of symptoms. Performed By: #### 1 7859-0 ####[facility] LABCLIA [id number] [facility] [id number] [place] PT panel Coag (PPP)on 2021 INR Coag (PPP) [Relative time] {INR} Low 0.9-1.3 [facility] Comment on above: Order Comment: Rhina mason Type: BLOOD SPECIMEN [facility] Address: [address] [address] Result Comment: Mayra min K Antagonist (VKA) Therapeutic Range: INR 2 to 3 (Target INR of 2.5) Note: For patients treated with VKA drugs, such as warfarin, the [employer] 2012 Guideline recommends [...] Chest 2012, 141:7S-47S Daren RA, et al. [facility] 2017, 70: 252-289 Performed By: #### T SCR #### [facility] [place] [id number] [address] PT Coag (PPP) [Time] 9.9 s Normal 9.7-13.0 [facility] Comment on above: Order Comment: Rhina mason Type: BLOOD SPECIMEN [facility] Address: [address] [phone] Performed By: #### T SCR #### [facility] CLIA [id number] [address] THERAPY NTon 06-22-2022 THERAPY NT HNO ID: [id number] Author: Shannan Segovia OTR/[place] Service: Occupational Therapy Author Type: Occupational Therapist Type: Therapy (PT/OT/Speech/Resp) Filed: 06/22/2022 11:27 AM Note Text: Occupational Therapy Evaluation SERVICE DATE: 06/22/2022 SERVICE TIME: 1037 to 1105 ROOM: [id number] Recommended Discharge Disposition: Subacute/SNF Recommended Discharge Disposition [...] time Occupational Factors Life Roles: Retired;Parent;Family Member;Friend;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 Normal [facility] US ARTERIAL PVR LOWERon 12-0 US ARTERIAL PVR LOWER * * *Final Report* * * DATE OF EXAM: Jun 22 2022 7:43AM A2U 1107 - US ARTERIAL PVR LOWER / PROCEDURE REASON: Arterial embolism * * * * Physician Interpretation * * * * Non-Invasive Vascular Laboratory [facility] Lower Extremity Arterial Physiology Study Bilateral/Complete [...] all veins 06/16/22. Dopplers study was done. BUCKLE COVERER - Biphasic 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 - Multiphasic - possible stenosis DP - Monophasic Tolley - Biphasic. Technologist: Azar ELDRIDGE Ordering physician: DWAYNE ZAIDI Interpreting physician: Supriya Ponce MD Final (Updated) RP Ripening Room Attendant: IRENE Transcribe Date/Time: Jun 22 2022 7:12A Dictated by : SUPRIYA PONCE MD This examination was interpreted and the report reviewed and electronically signed by: SUPRIYA PONCE MD on Jun 24 2022 1:27PM EST [id number] Normal [facility] aPTT PPPon 06-22-2022 aPTT Coag (PPP) [Time] 43.0 s High 23.0-32.4 [facility] Comment on above: Order Comment: Speci men Type: BLOOD SPECIMENOrdering Facility: [facility] Address: [address] [place] [address] Performed By: #### 1 4979-9 ####[facility]ATORYCLIA [id number] [address] aPTT Coag (PPP) [Time] 25.6 s Normal 23.0-32.4 [facility] Comment on above: Order Comment: Speci men Type: BLOOD SPECIMEN Ordering Facility: [facility] Address: [address] [place] [address] Performed By: #### T SCR #### [facility] CLIA [id number] [address] ANES POSTPROC EVALon 022 ANES POSTPROC EVAL HNO ID: [id number] Author: Olu Vasquez MD Service: Anesthesiology Author Type: Physician Type: Anesthesia Postprocedure Evaluation Filed: 06/21/2022 3:20 PM Note Text: POST ANESTHESIA EVALUATION NOTE : 1940 Procedure Summary Date: 06/21/22 Room / Location: [facility] Anesthesia Start: 1134 Anesthesia Stop: 1158 [...] June 21, 2022 TIME: 3:19 PM CSN: [id number] [facility] ANES PRE-OPon 06-21-2022 ANES PRE-OP HNO ID: [id number] Author: Olu Vasquez MD Service: Anesthesiology Author Type: Physician Type: Anesthesia Preprocedure Evaluation Filed: 06/21/2022 11:32 AM Note Text: ANESTHESIOLOGY DAY OF SURGERY NOTE : 1940 Procedure Information Date/Time: 06/21/22 1130 Scheduled providers: Sim Elizabeth MD Procedure: EGD DIAGNOSTIC Location: [facility] Estimated body mass index is 26.94 kg/m? [...] Pulse 76 06/21/22 1122 Resp 20 06/21/22 112 Temp 36.3 ?C (97.3 ?F) 06/21/22 112 [...] (more content not included)... Normal [facility] CONSULT PROGon 06-21-2022 CONSULT PROG HNO ID: [id number] Author: Fidel Carmen APRN.EDUCATION PROGRAM COORDINATOR Service: Wound/Ostomy Author Type: Nurse Practitioner Type: Consult Progress Note Filed: 06/21/2022 1:41 PM Note Text: WOUND CARE SERVICE CONSULT FILLER SHREDDER NOTE SERVICE DATE: 06/21/2022 SERVICE TIME: 941 TIME SPENT (minutes): 30 REASON FOR CONSULT: MAD buttocks, atypical wound Right middle finger. CHIEF COMPLAINT: Right middle finger Subjective HISTORY OF PRESENT ILLNESS: Ms. Jose Alberto Castillo is a 81 year old female who is seen today with Delia Bruno, Wound/commercial pest control representative, and presented to hospital with complaints of [...] 06/21/2022 9:57 AM Wound Image Site Assessment [place];Red (small open area noted) Allie-Wound Assessment [place];Intact Drainage Amount None Odor None Treatments Cleansed;Protective Barrier Ointment Dressing Foam- Adhesive Dressing Changed Changed Dressing Status Clean;Dry;Intact Active Orders Date Order Priority Status Authorizing Provider 06/21/22 1248 DRESSING CARE (SPECIFY) ([place]) Routine Active Fidel Carmen APRN.EDUCATION PROGRAM COORDINATOR - Specify:: Apply allevyn foam to coccyx, peel down every shift to assess skin and to apply zinc oxide, change every 3 days or if soiled. 06/21/22 1248 zinc oxide 20 % Active Fidel Carmen APRN.EDUCATION PROGRAM COORDINATOR Wound 06/21/22 0948 Atypical Wound Finger (Comment which one) Right (Active) Assessments 06/21/2022 9:48 AM Wound Image Site Assessment [place];White (shiney) Allie-Wound Assessment Intact Shape irregular Drainage Description Sanguineous (intermittent, per pt.) Drainage Amount None Odor None Treatments Cleansed Dressing Xeroform;Gauze Dr (more content not included)... Normal [facility] Hgb Bld-mCncon 06-21-2022 Hemoglobin (Bld) [Mass/Vol] 6.9 g/dL Low 11.5-15.5 [facility] Comment on above: Order Comment: Speci men Type: BLOOD SPECIMENOrdering Facility: [facility] Address: [address] [place], [place] [address] Performed By: #### 3 2355-0 #### [facility] CLIA [id number] [address] [place] [address] OF [facility] OPERATIVE NOon 06-21-2022 OPERATIVE NO HNO ID: [id number] Author: Sim Elizabeth MD Service: Gastroenterology Author Type: Physician Type: Operative Report Filed: 06/21/2022 12:01 PM Note Text: OPERATIVE/PROCEDURE REPORT LOG ID: [id number] Surgery/Procedure Date: 06/21/2022 Incision/Procedure Start Time: 11:44 AM Incision Close/Procedure End Time: 11:49 AM Surgeon(s)/Proceduralis t(s) and National Expansion Recruiter(s): Surgeon(s) and Role: * Sim Elizabeth MD [...] 21, 2022 TIME: 11:53 AM PAGER/CONTACT #: [phone] Normal [facility] THERAPY NTon 06-21-2022 THERAPY NT HNO ID: [id number] Author: Miranda Burroughs, PT Service: Physical Therapy Author Type: Physical Therapist Type: Therapy (PT/OT/Speech/Resp) Filed: 06/21/2022 10:12 AM Note Text: Physical Therapy Evaluation SERVICE DATE: 06/21/2022 SERVICE TIME: 831 to 854 ROOM: [place] [address] Recommended Discharge Disposition: Subacute/SNF Recommended Discharge Disposition [...] occulsion L superfical femoral a.; s/p venogram 11/30; developed GI bleed--being prepped for colonoscopy Reason [...] pt was able to complete Equipment Owned: [employer]-Shower Prior Functional Level: Required Assistance Assistance [...] gait and mobility-other Interventions Provided: Evaluation;Therapeutic Activity (17027) $ Evaluation-Moderate (41047) Billed Units: 1 unit Therapeutic Activity (06071) Treatment Minutes: 8 $ Therapeutic Activity (56787) Billed Units: 1 unit Educated pt on [...] (more content not included)... Normal [facility] TYPE + SCREENon 06-21-2022 ABO AB Normal [facility] Comment on above: Order Comment: Speci men Type: BLOOD SPECIMEN [facility] Address: [address] [place] [address] Performed By: #### T SCR #### [facility] CLIA [id number] [address] HISTORICAL AB SCR STATUS Negative Normal [facility] Comment on above: Order Comment: Speci men Type: BLOOD SPECIMEN [facility]ing [facility] Address: [address] [place] [address] Performed By: #### T SCR #### [facility] CLIA [id number] [address] Rh Nom (Bld) Positive Normal [facility] Comment on above: Order Comment: Speci men Type: BLOOD SPECIMEN [facility]ing [facility] Address: [place] [phone] Performed By: #### T SCR #### [facility] CLIA [id number] [address] TYPE AND SCREEN EXPIRATION 06/24/2022 23:59 Normal [facility] Comment on above: Order Comment: Speci men Type: BLOOD SPECIMEN Ordering [facility] Address: [place] [address] Performed By: #### T SCR #### [facility] CLIA [id number] [address] ALLIED HEALTHon 06-20-2022 ALLIED HEALTH HNO ID: [id number] Author: RT Tamica(R) Service: Radiology Author Type: [...] PERIPHERAL IV DATA: Inpatient - refer to [facility] documentation RADIOLOGY DEPARTMENT: CT; Exam(s) Completed: Abdomen/Pelvis SIGNATURE: Alyssa Trevizo, RT(R) PATIENT NAME: Mel Castillo DATE: June 20, 2022 TIME: 3:15 PM Normal [facility] Basic metabolic 2000 panelon 06-20-2022 Anion gap [Moles/Vol] 8 mmol/L Low 9-18 [facility] Comment on above: Order Comment: Speci men Type: BLOOD SPECIMENOrdering Facility: [facility] Address: [address] [place] [address] Performed By: #### 2 4321-2 ####[facility] LABORATORYCLIA [id number] [place] [address] [place] Calcium [Mass/Vol] 8.5 mg/dL Normal 8.5-10.2 [facility] Comment on above: Order Comment: Samiri isabella Type: BLOOD SPECIMENOrdering Facility: [facility] Address: [address] [place] [address] Performed By: #### 2 4321-2 ####[facility] LABORATORYCLIA [id number] [place] [address] [place] Chloride [Moles/Vol] 106 mmol/L High 97-105 [facility] Comment on above: Order Comment: Samiri men Type: BLOOD SPECIMENOrdering Facility: [facility] Address: [address] [place] [address] Performed By: #### 2 4321-2 ####[facility] LABORATORYCLIA [id number] [place] [address] [place] CO2 [Moles/Vol] 22 mmol/L Normal 22-30 [facility] Comment on above: Order Comment: Speci men Type: BLOOD SPECIMENOrdering Facility: [facility] Address: [address] [place] [address] Performed By: #### 2 4321-2 ####[facility] LABORATORYCLIA [id number] [address] Creatinine [Mass/Vol] 0.84 mg/dL Normal 0.58-0.96 [facility] Comment on above: Order Comment: Speci men Type: BLOOD SPECIMENOrdering Facility: [facility] Address: [address] [place] [address] Performed By: #### 2 4321-2 ####[facility] [id number] [address] ESTIMATED GLOMERULAR FILTRATION RATE 69 mL/min/1.73m??? Normal >=60 [facility] Comment on above: Order Comment: Speci men Type: BLOOD SPECIMENOrdering Facility: [facility] Address: [address] [place] [address] Result Comment: Isa mated Glomerular Filtration Rate [...] actual GFR. Performed By: #### 2 4321-2 ####[facility] LABORATORYCLIA [id number] [address] Glucose [Mass/Vol] 92 mg/dL Normal 74-99 [facility] Comment on above: Order Comment: [facility] Type: BLOOD SPECIMENOrdering Facility: [facility] Address: [address] [place] [address] Result Comment: The [place] Diabetes Association (ADA) provides guidance for cutoff [...] Standards of Medical Care in Diabetes 2016, [place] Diabetes Association. Diabetes Care. 2016.39(Suppl 1). Performed By: #### 2 4321-2 ####[facility] LABORATORYCLIA [id number] [address] [place] Potassium [Moles/Vol] 4.7 mmol/L Normal 3.7-5.1 [facility] Comment on above: Order Comment: Speci men Type: BLOOD SPECIMENOrdering Facility: [facility] Address: [address] [place] [address] Performed By: #### 2 1-2 ####[facility] LABORATORYCLIA [id number] [address] STATES OF [facility] Sodium [Moles/Vol] 136 mmol/L Normal 136-144 [facility] Comment on above: Order Comment: Speci men Type: BLOOD SPECIMENOrdering Facility: [facility] Address: [address] [place] [address] Performed By: #### 2 4321-2 ####[facility] LABORATORYCLIA [id number] [address] [place] Urea nitrogen [Mass/Vol] 16 mg/dL Normal 7-21 [facility] Comment on above: Order Comment: Speci men Type: BLOOD SPECIMENOrdering Facility: [facility] Address: [address] [place] [address] Performed By: #### 2 4321-2 ####[facility] LABORATORYCLIA [id number] [address] [place] CBC panel Auto (Bld)on 06-20 Erythrocyte distribution width (RBC) [Ratio] 15.9 % High 11.5-15.0 [facility] Comment on above: Order Comment: Speci men Type: BLOOD SPECIMENOrdering Facility: [facility] Address: [address] [address] Performed By: #### 3 2355-0 #### [facility] CLIA [id number] [address] Hematocrit (Bld) [Volume fraction] 23.9 % Low 36.0-46.0 [facility] Comment on above: Order Comment: Speci men Type: BLOOD SPECIMENOrdering Facility: [facility] Address: [address] [address] Performed By: #### 3 2355-0 #### [facility] CLIA [id number] [address] Hemoglobin (Bld) [Mass/Vol] 7.8 g/dL Low 11.5-15.5 [facility] Comment on above: Order Comment: Speci men Type: BLOOD SPECIMENOrdering Facility: [facility] Address: [address] [place] [address] Performed By: #### 3 2355-0 #### [facility] CLIA [id number] [address] MCH (RBC) [Entitic mass] 30.7 pg Normal 26.0-34.0 [facility] Comment on above: Order Comment: Speci men Type: BLOOD SPECIMENOrdering Facility: [facility] Address: [address] [place] [address] Performed By: #### 3 2355-0 #### [facility] CLIA [id number] [address] [place] MCHC (RBC) [Mass/Vol] 32.6 g/dL Normal 30.5-36.0 [facility] Comment on above: Order Comment: Speci men Type: BLOOD SPECIMENOrdering Facility: [facility] Address: [address] [place] [address] Performed By: #### 3 2355-0 #### [facility] CLIA [id number] [address] MCV (RBC) [Entitic vol] 94.1 fL Normal 80.0-100.0 [facility] Comment on above: Order Comment: Speci men Type: BLOOD SPECIMENOrdering Facility: [facility] Address: [address] [place] [address] Performed By: #### 3 2355-0 #### [facility] CLIA [id number] [address] Nucleated RBC (Bld) [#/Vol] 0.09 10*3/uL High <0.01 [facility] Comment on above: Order Comment: Speci men Type: BLOOD SPECIMENOrdering Facility: [facility] Address: [address] [place] [address] Performed By: #### 3 2355-0 #### [facility] CLIA [id number] [address] Platelet mean volume (Bld) [Entitic vol] 9.8 fL Normal 9.0-12.7 [facility] Comment on above: Order Comment: Speci men Type: BLOOD SPECIMENOrdering Facility: [facility] Address: [address] [place] [address] Performed By: #### 3 2355-0 #### [facility] CLIA [id number] [address] Platelets (Bld) [#/Vol] 233 10*3/uL Normal 150-400 [facility] Comment on above: Order Comment: Speci men Type: BLOOD SPECIMENOrdering Facility: [facility] Address: [address] [place] [address] Performed By: #### 3 2355-0 #### [facility] CLIA [id number] [address] [place] RBC (Bld) [#/Vol] 2.54 10*6/uL Low 3.90-5.20 [facility] Comment on above: Order Comment: Speci men Type: BLOOD SPECIMENOrdering Facility: [facility] Address: [address] [id number] Performed By: #### 3 2355-0 #### [facility] CLIA [id number] [address] WBC (Bld) [#/Vol] 9.90 10*3/uL Normal 3.70-11.00 [facility] Comment on above: Order Comment: Speci men Type: BLOOD SPECIMENOrdering Facility: [facility] Address: [address] [id number] Performed By: #### 3 2355-0 #### [facility] CLIA [id number] [address] CONSULTon 06-20-2022 CONSULT HNO ID: [id number] Author: Christine Edouard MD Service: ? Author [...] (more content not included)... Normal [facility] CT ABD/PEL W IVCONon 022 CT ABD/PEL W IVCON * * *Final Report* * * DATE OF EXAM: Jun 20 2022 2:57PM [facility] 0530 - CT ABD/PEL W IVCON / [...] bilateral pleural effusions, larger on the right. Casing Man (topogram) images: No additional findings. IMPRESSION: Acute sigmoid diverticulitis. No evidence of perforation or diverticular abscess. Consolidation and volume loss with bronchial wall thickening in both lower lobes and right middle lobe. Small bilateral pleural effusions, larger on the right. Diffuse subcutaneous edema of the left flank extending into the thigh. Bilateral renal cortical scarring and small cysts. Atherosclerotic arterial and aortic calcifications. Ripening Room Attendant: DEVEN Transcribe Date/Time: Jun 20 2022 3:18P Dictated by : DI MAYES MD This examination was interpreted and the report reviewed and electronically signed by: DI MAYES MD on Jun 20 2022 3:24PM EST [id number] Normal [facility] Hgb Bld-mCncon 06-20-2022 Hemoglobin (Bld) [Mass/Vol] 7.0 g/dL Low 11.5-15.5 [facility] Comment on above: Order Comment: Speci men Type: BLOOD SPECIMEN [facility] Address: [address] [place] [address] Performed By: #### T SCR #### [facility] CLIA [id number] [address] OF [facility] ALLIED HEALTHon 06-19-2022 ALLIED HEALTH HNO ID: [id number] Author: Parul Ryan RN Service: Infection Prevention Author Type: ? Type: Allied Health Filed: 06/19/2022 5:49 PM Note Text: INFECTION PREVENTION NOTE Admission Date: 06/16/2022 Patient meets ?COVID Resolved? criteria and isolation has been discontinued as per CDC guidance. SIGNATURE: Parul Ryan RN PATIENT NAME: Mel Castillo DATE: June 19, 2022 TIME: 5:49 PM PAGER/CONTACT #: Infection Prevention, [id number] Infection Prevention after hours/weekend pager: [phone] Normal [facility] Basic metabolic 2000 panelon 06-19-2022 Anion gap [Moles/Vol] 5 mmol/L Low 9-18 [facility] Comment on above: Order Comment: Speci men Type: BLOOD SPECIMENOrdering Facility: [facility] Address: [address] [place] [address] Performed By: #### 3 2355-0 #### [facility] CLIA [id number] [address] [place] [address] Calcium [Mass/Vol] 8.1 mg/dL Low 8.5-10.2 [facility] Comment on above: Order Comment: Speci men Type: BLOOD SPECIMENOrdering Facility: [facility] Address: [address] [place] [address] Performed By: #### 3 2355-0 #### [facility] CLIA [id number] [address] OF [facility] Chloride [Moles/Vol] 105 mmol/L Normal 97-105 [facility] Comment on above: Order Comment: Speci men Type: BLOOD SPECIMENOrdering Facility: [facility] Address: [address] [place] [address] Performed By: #### 3 2355-0 #### [facility] CLIA [id number] [address] [place] CO2 [Moles/Vol] 23 mmol/L Normal 22-30 [facility] Comment on above: Order Comment: Speci men Type: BLOOD SPECIMENOrdering Facility: [facility] Address: [address] [place] [address] Performed By: #### 3 2355-0 #### [facility] CLIA [id number] [address] OF [facility] Creatinine [Mass/Vol] 0.94 mg/dL Normal 0.58-0.96 [facility] Comment on above: Order Comment: Speci men Type: BLOOD SPECIMENOrdering Facility: [facility] Address: [address] [place] [address] Performed By: #### 3 2355-0 #### [facility] CLIA [id number] [address] ESTIMATED GLOMERULAR FILTRATION RATE 61 mL/min/1.73m??? Normal >=60 [facility] Comment on above: Order Comment: Speci men Type: BLOOD SPECIMENOrdering Facility: [facility] Address: [address] [place] [address] Result Comment: Isa mated Glomerular Filtration Rate [...] GFR. Performed By: #### 3 2355-0 #### [facility] CLIA [id number] [address] [place] [address] [place] Glucose [Mass/Vol] 115 mg/dL High 74-99 [facility] Comment on above: Order Comment: Speci men Type: BLOOD SPECIMENOrdering Facility: [facility] Address: [address] [place] [address] Result Comment: The [place] Diabetes Association (ADA) provides guidance for cutoff [...] Standards of Medical Care in Diabetes 2016, [place] Diabetes Association. Diabetes Care. 2016.39(Suppl 1). Performed By: #### 3 2355-0 #### [facility] CLIA [id number] [address] [place] [address] [place] Potassium [Moles/Vol] 4.4 mmol/L Normal 3.7-5.1 [facility] Comment on above: Order Comment: Speci men Type: BLOOD SPECIMENOrdering Facility: [facility] Address: [address] [place] [address] Performed By: #### 3 2355-0 #### [facility] CLIA [id number] [address] [place] [address] [place] Sodium [Moles/Vol] 133 mmol/L Low 136-144 [facility] Comment on above: Order Comment: Speci men Type: BLOOD SPECIMENOrdering Facility: [facility] Address: [address] [place] [address] Performed By: #### 3 2355-0 #### [facility] CLIA [id number] [address] [place] [address] [place] Urea nitrogen [Mass/Vol] 22 mg/dL High 7-21 [facility] Comment on above: Order Comment: Speci men Type: BLOOD SPECIMENOrdering Facility: [facility] Address: [address] [place] [address] Performed By: #### 3 2355-0 #### [facility] CLIA [id number] [address] STATES OF [facility] CBC panel Auto (Bld)on 06-19 Erythrocyte distribution width (RBC) [Ratio] 15.6 % High 11.5-15.0 [facility] Comment on above: Order Comment: Speci men Type: BLOOD SPECIMENOrdering Facility: [facility] Address: [address] [place] [address] Performed By: #### 5 8410-2 ####[facility]ORATORYCLIA [id number] [address] STATES [facility] Hematocrit (Bld) [Volume fraction] 24.0 % Low 36.0-46.0 [facility] Comment on above: Order Comment: Speci men Type: BLOOD SPECIMENOrdering Facility: [facility] Address: [address] [place] [address] Performed By: #### 5 8410-2 ####[facility]ATORYCLIA [id number] [address] STATES OF [facility] Hemoglobin (Bld) [Mass/Vol] 7.6 g/dL Low 11.5-15.5 [facility] Comment on above: Order Comment: Speci men Type: BLOOD SPECIMENOrdering Facility: [facility] Address: [address] [place] [address] Performed By: #### 5 8410-2 ####[facility]ATORYCLIA [id number] [address] STATES [facility] MCH (RBC) [Entitic mass] 29.9 pg Normal 26.0-34.0 [facility] Comment on above: Order Comment: Speci men Type: BLOOD SPECIMENOrdering Facility: [facility] Address: [address] [place] [address] Performed By: #### 5 8410-2 ####[facility]ATORYCLIA [id number] [address] MCHC (RBC) [Mass/Vol] 31.7 g/dL Normal 30.5-36.0 [facility] Comment on above: Order Comment: Speci men Type: BLOOD SPECIMENOrdering Facility: [facility] Address: [address] [place] [address] Performed By: #### 5 8410-2 ####[facility]ATORYCLIA [id number] [address] MCV (RBC) [Entitic vol] 94.5 fL Normal 80.0-100.0 [facility] Comment on above: Order Comment: Speci men Type: BLOOD SPECIMENOrdering Facility: [facility] [facility] Address: [address] [place] [address] Performed By: #### 5 8410-2 ####[facility] LABORATORYCLIA [id number] [address] Nucleated RBC (Bld) [#/Vol] 0.04 10*3/uL High <0.01 [facility] Comment on above: Order Comment: Speci men Type: BLOOD SPECIMENOrdering Facility: [facility] Address: [address] [place] [address] Performed By: #### 5 8410-2 ####[facility] LABORATORYCLIA [id number] [address] Platelet mean volume (Bld) [Entitic vol] 10.0 fL Normal 9.0-12.7 [facility] Comment on above: Order Comment: Speci men Type: BLOOD SPECIMENOrdering Facility: [facility] Address: [address] [place] [address] Performed By: #### 5 8410-2 ####[facility] LABORATORYCLIA [id number] [address] [place] Platelets (Bld) [#/Vol] 219 10*3/uL Normal 150-400 [facility] Comment on above: Order Comment: Speci men Type: BLOOD SPECIMENOrdering Facility: [facility] Address: [address] [place] [address] Performed By: #### 5 8410-2 ####[facility] LABORATORYCLIA [id number] [place] [address] [place] RBC (Bld) [#/Vol] 2.54 10*6/uL Low 3.90-5.20 [facility] Comment on above: Order Comment: Speci men Type: BLOOD SPECIMENOrdering Facility: [facility] Address: [address] [place] [address] Performed By: #### 5 8410-2 ####[facility] LABORATORYCLIA [id number] [address] STATES OF [facility] WBC (Bld) [#/Vol] 8.55 10*3/uL Normal 3.70-11.00 [facility] Comment on above: Order Comment: Speci men Type: BLOOD SPECIMENOrdering Facility: [facility] Address: [address] [place] [address] Performed By: #### 5 8410-2 ####[facility] LABORATORYCLIA [id number] [address] STATES [place] Hemoccult Stl Ql IAon 2021 Lower GI hemoglobin IA Ql (Stl) Positive Abnormal Negative [facility] Comment on above: Order Comment: Speci men Type: BLOOD SPECIMEN Ordering [facility] Address: [address] [place] [address] Performed By: #### T SCR #### [facility] CLIA [id number] [address] OF [facility] Hgb Bld-mCncon 06-19-2022 Hemoglobin (Bld) [Mass/Vol] 7.6 g/dL Low 11.5-15.5 [facility] Comment on above: Order Comment: Speci men Type: BLOOD SPECIMENOrdering Facility: [facility] Address: [address] [place] [address] [place] [address] Performed By: #### 7 18-7 ####[facility] LABORATORYCLIA [id number] [place] [id number] [facility] Magnesium SerPl-mCncon 06-19 Magnesium [Mass/Vol] 1.9 mg/dL Normal 1.7-2.3 [facility] Comment on above: Order Comment: Speci men Type: BLOOD SPECIMENOrdering Facility: [facility] Address: [place] [address] Performed By: #### 3 2355-0 #### [facility] CLIA [id number] [address] [place] [place] [id number] [facility] OPERATIVE NOon 06-19-2022 OPERATIVE NO HNO ID: [id number] Author: Frida Rodriguez MD Service: Vascular Surgery Author Type: Physician Type: Operative Report Filed: 06/19/2022 2:59 PM Note Text: [facility] - Operative Report MEL GUADARRAMA : 1940 AGE: 81. SEX: F PATIENT TYPE: I HOSP SVC: ICU LOCATION: [facility] ATTENDING PHYSICIAN: DWAYNE ZAIDI CSN NUMBER: [id number] DATE OF SURGERY/PROCEDURE: 06/16/2022 INCISION/PROCEDURE START TIME: 5:01 PM INCISION CLOSE/PROCEDURE END TIME: 6:58 PM PREOPERATIVE DIAGNOSIS: Left lower extremity deep vein thrombosis. POSTOPERATIVE DIAGNOSIS: Left lower extremity deep vein thrombosis. SURGEON: Frida Rodriguez MD BARREL SCRAPER: Resident, Emanuel Hull SURGERY/PROCEDURE: Venogram with intravascular [...] micropuncture needle and serially upsized to a 5-Jordanian sheath. A venogram was then performed, which [...] time, the sheath was upsized to an 8-Jordanian sheath. An intravascular ultrasound was performed. This [...] unit for further monitoring. Frida Rodriguez MD LM:[id number] Normal [facility] Phosphate SerPl-mCncon 06-19 Phosphate [Mass/Vol] 2.4 mg/dL Low 2.7-4.8 [facility] Comment on above: Order Comment: Rhina mason Type: BLOOD SPECIMENOrdering Facility: [facility] Address: [address] [place] [address] Performed By: #### 3 2355-0 #### [facility] CLIA [id number] [address] OF [facility] aPTT PPPon 06-19-2022 aPTT Coag (PPP) [Time] 46.9 s High 23.0-32.4 [facility] Comment on above: Order Comment: Rhina mason Type: BLOOD SPECIMENOrdering Facility: [facility] Address: [address] [place] [address] Performed By: #### 1 4979-9 ####[facility] LABORATORYCLIA [id number] [address] OF [facility] aPTT Coag (PPP) [Time] 83.8 s High 23.0-32.4 [facility] Comment on above: Order Comment: Speci men Type: BLOOD SPECIMENOrdering Facility: [facility] Address: [address] [place] [address] Performed By: #### 3 2355-0 #### [facility] CLIA [id number] [address] [place] [address] [place] Basic metabolic 2000 panelon 06-18-2022 Anion gap [Moles/Vol] 10 mmol/L Normal 9-18 [facility] Comment on above: Order Comment: Speci men Type: BLOOD SPECIMENOrdering Facility: [facility] Address: [address] [place] [address] Performed By: #### 2 4321-2, 49382-3, , 2776-07 ####[facility] LABORATORYCLIA [id number] [place] [address] [place] Calcium [Mass/Vol] 8.0 mg/dL Low 8.5-10.2 [facility] Comment on above: Order Comment: Speci men Type: BLOOD SPECIMENOrdering Facility: [facility] Address: [address] [place] [address] Performed By: #### 2 4321-2, 80953-2, , 2776-07 ####[facility] LABORATORYCLIA [id number] [place] [address] [place] Chloride [Moles/Vol] 102 mmol/L Normal 97-105 [facility] Comment on above: Order Comment: Speci men Type: BLOOD SPECIMENOrdering Facility: [facility] Address: [address] [place] [address] Performed By: #### 2 4321-2, 36997-6, , 2776-07 ####[facility] LABORATORYCLIA [id number] [place] [address] [place] CO2 [Moles/Vol] 21 mmol/L Low 22-30 [facility] Comment on above: Order Comment: Speci men Type: BLOOD SPECIMENOrdering Facility: [facility] Address: [address] [address] Performed By: #### 2 4321-2, 20110-5, , 2776-07 ####[facility] CENTERCLIA [id number] [place] [address] [place] Creatinine [Mass/Vol] 1.17 mg/dL High 0.58-0.96 [facility] Comment on above: Order Comment: Speci men Type: BLOOD SPECIMENOrdering Facility: [facility] Address: [address] [place] [address] Performed By: #### 2 4321-2, 17243-9, , 2776-07 ####[facility] [id number] [address] [place] ESTIMATED GLOMERULAR FILTRATION RATE 47 mL/min/1.73m??? Low >=60 [facility] Comment on above: Order Comment: Speci men Type: BLOOD SPECIMENOrdering Facility: [facility] Address: [address] [place] [address] Result Comment: Isa mated Glomerular Filtration Rate [...] actual GFR. Performed By: #### 2 4321-2, 53958-5, , 2776-07 ####[facility] LABORATORYCLIA [id number] [place] [address] [place] Glucose [Mass/Vol] 112 mg/dL High 74-99 [facility] Comment on above: Order Comment: Speci men Type: BLOOD SPECIMENOrdering Facility: [facility] Address: [address] [address] Result Comment: The [place] Diabetes Association (ADA) provides guidance for cutoff [...] Standards of Medical Care in Diabetes 2016, [place] Diabetes Association. Diabetes Care. 2016.39(Suppl 1). Performed By: #### 2 4321-2, 64225-7, , 2776-07 ####[facility] LABORATORYCLIA [id number] [place] [address] [place] Potassium [Moles/Vol] 4.4 mmol/L Normal 3.7-5.1 [facility] Comment on above: Order Comment: Speci isabella Type: BLOOD SPECIMENOrdering Facility: [facility] Address: [address] [place] [address] Performed By: #### 2 4321-2, 33111-7, , 2776-07 ####[facility] LABORATORYCLIA [id number] [place] [address] [place] Sodium [Moles/Vol] 133 mmol/L Low 136-144 [facility] Comment on above: Order Comment: Speci men Type: BLOOD SPECIMENOrdering Facility: [facility] Address: [address] [place] [address] Performed By: #### 2 4321-2, 99056-8, , 2776-07 ####[facility] LABORATORYCLIA [id number] [place] [address] [place] Urea nitrogen [Mass/Vol] 25 mg/dL High 7-21 [facility] Comment on above: Order Comment: Samiri men Type: BLOOD SPECIMENOrdering Facility: [facility] Address: [address] [place] [address] Performed By: #### 2 4321-2, 20174-5, , 2776-07 ####[facility] LABORATORYCLIA [id number] [address] STATES OF [facility] CBC panel Auto (Bld)on 06-18 Erythrocyte distribution width (RBC) [Ratio] 15.6 % High 11.5-15.0 [facility] Comment on above: Order Comment: Speci men Type: BLOOD SPECIMENOrdering Facility: [facility] Address: [address] [place] [address] Performed By: #### 5 8410-2 ####[facility] LABORATORYCLIA [id number] [address] OF [facility] Hematocrit (Bld) [Volume fraction] 26.8 % Low 36.0-46.0 [facility] Comment on above: Order Comment: Speci men Type: BLOOD SPECIMENOrdering Facility: [facility] Address: [address] [place] [address] Performed By: #### 5 8410-2 ####[facility] LABORATORYCLIA [id number] [address] OF [facility] Hemoglobin (Bld) [Mass/Vol] 8.5 g/dL Low 11.5-15.5 [facility] Comment on above: Order Comment: Speci men Type: BLOOD SPECIMENOrdering Facility: [facility] Address: [address] [place] [address] Performed By: #### 5 8410-2 ####[facility] LABORATORYCLIA [id number] [address] STATES [facility] MCH (RBC) [Entitic mass] 30.1 pg Normal 26.0-34.0 [facility] Comment on above: Order Comment: Speci men Type: BLOOD SPECIMENOrdering Facility: [facility] Address: [address] [place] [address] Performed By: #### 5 8410-2 ####[facility] LABORATORYCLIA [id number] [address] [place] MCHC (RBC) [Mass/Vol] 31.7 g/dL Normal 30.5-36.0 [facility] Comment on above: Order Comment: Speci men Type: BLOOD SPECIMENOrdering Facility: [facility] Address: [address] [address] Performed By: #### 5 8410-2 ####[facility] LABORATORYCLIA [id number] [address] OF [place] MCV (RBC) [Entitic vol] 95.0 fL Normal 80.0-100.0 [facility] Comment on above: Order Comment: Speci men Type: BLOOD SPECIMENOrdering Facility: [facility] Address: [address] [address] Performed By: #### 5 8410-2 ####[facility] LABORATORYCLIA [id number] [address] [place] Nucleated RBC (Bld) [#/Vol] 0.03 10*3/uL High <0.01 [facility] Comment on above: Order Comment: Speci men Type: BLOOD SPECIMENOrdering Facility: [facility] Address: [address] [address] Performed By: #### 5 8410-2 ####[facility] LABORATORYCLIA [id number] [address] STATES OF [facility] Platelet mean volume (Bld) [Entitic vol] 10.2 fL Normal 9.0-12.7 [facility] Comment on above: Order Comment: Speci men Type: BLOOD SPECIMENOrdering Facility: [facility] Address: [address] [address] Performed By: #### 5 8410-2 ####[facility] LABORATORYCLIA [id number] [address] [place] Platelets (Bld) [#/Vol] 234 10*3/uL Normal 150-400 [facility] Comment on above: Order Comment: Speci men Type: BLOOD SPECIMENOrdering Facility: [facility] Address: [address] [address] Performed By: #### 5 8410-2 ####[facility] LABORATORYCLIA [id number] [address] OF [facility] RBC (Bld) [#/Vol] 2.82 10*6/uL Low 3.90-5.20 [facility] Comment on above: Order Comment: Speci men Type: BLOOD SPECIMENOrdering Facility: [facility] Address: [address] [place] [address] Performed By: #### 5 8410-2 ####[facility] LABORATORYCLIA [id number] [address] WBC (Bld) [#/Vol] 8.77 10*3/uL Normal 3.70-11.00 [facility] Comment on above: Order Comment: Speci men Type: BLOOD SPECIMENOrdering Facility: [facility] Address: [address] [place] [address] Performed By: #### 5 8410-2 ####[facility] LABORATORYCLIA [id number] [address] CONSULT PROGon 06-18-2022 CONSULT PROG HNO ID: [id number] Author: Jessica Colmenares APRN.EDUCATION PROGRAM COORDINATOR Service: Cardiovascular Medicine Author Type: Nurse Practitioner Type: Consult Progress Note Filed: 06/18/2022 2:46 PM Note Text: The ECHO reviewed, EF 59%. No significant valvular abnormalities. Chart reviewed, no further recommendations. Thank you, Jessica Colmenares APRN.EDUCATION PROGRAM COORDINATOR Normal [facility] CONSULT PROG HNO ID: [id number] Author: Cirilo Yip RPh Service: Pharmacy Author [...] any questions or concerns. SIGNATURE: Cirilo Yip [facility] DATE/TIME: 06/18/2022 12:02 PM Normal [facility] CONSULT PROG HNO ID: [id number] Author: Nimo Arzola MD Service: General Surgery [...] questions or concerns Mon-Fri 6a-5p please page [phone]. After 5pm and on Weekends and Holidays, please page [phone] if in ICU or [phone] if on RNF. Subjective SUBJECTIVE: No acute [...] 0659 06/18/22 07 - 06/19/22 0659 Shift 3515-8358 [phone] 5974-3719 24 Hour Total 5289-0263 6910-1500 0762-3565 24 Hour Total INTAKE IV 350 15 365 Volume (mL) 15 15 Volume (mL) (lactated ringers iv infusion) 350 350 Shift Total 350 15 365 OUTPUT Urine 0569 939 5930 Void (ml) 1450 1450 Output ( External Collection Device 06/16/22 2331) 400 400 # of BMs Stool Incontinence 1 x 1 x Number of BMs 1 x 1 x Shift Total 0296 793 7016 Weight (kg) 71.2 71.2 71.2 71.2 71.2 [...] (more content not included)... Normal [facility] Lipid 1996 panelon 2 Cholesterol [Mass/Vol] 139 mg/dL Normal <200 [facility] Comment on above: Order Comment: Rhina mason Type: BLOOD SPECIMENOrdering Facility: [facility] Address: [address] [place] [address] Result Comment: <200 mg/dL, Desirable 200-239 mg/dL, Borderline high >239 mg/dL, High Performed By: #### 2 4321-2, 91216-3, 31560-1, 2777-1 ####[facility] LABORATORYCLIA [id number] [place] [address] [place] Cholesterol in HDL [Mass/Vol] 56 mg/dL Normal >39 [facility] Comment on above: Order Comment: Rhina mason Type: BLOOD SPECIMENOrdering Facility: [facility] Address: [address] [place] [address] Result Comment: 40-5 9 mg/dL, Acceptable >59 mg/dL, High: Negative risk factor for coronary heart disease <40 mg/dL, Low: Positive risk factor for coronary heart disease Performed By: #### 2 4321-2, 12270-5, , 2776-07 ####[facility] LABORATORYCLIA [id number] [place] [id number] [place] OF [facility] Cholesterol in LDL [Mass/Vol] 64 mg/dL Normal <100 [facility] Comment on above: Order Comment: Speci men Type: BLOOD SPECIMENOrdering Facility: [facility] Address: [address] [place] [address] Result Comment: <100 mg/dL, Optimal 100-129 mg/dL, Near optimal/above optimal 130-159 mg/dL, Borderline high 160-189 mg/dL, High >189 mg/dL, Very high Secondary prevention optimal LDL Cholesterol levels are recommended to be < 70 mg/dL Performed By: #### 2 4321-2, 77751-8, , 2776-07 ####[facility] LABORATORYCLIA [id number] [address] STATES OF [facility] Cholesterol in LDL/Cholesterol in HDL [Mass ratio] 1.14 {ratio} Normal <2.54 [facility] Comment on above: Order Comment: Speci men Type: BLOOD SPECIMENOrdering Facility: [facility] Address: [address] [place] [address] Result Comment: Refe coriece: 1. National Cholesterol Education Program ATP III Guideline At-A-Glance Quick Desk Reference: National Heart, Lung, and Blood [place]. National Institutes of Health. 2001: NIH Publication No. 01-3305. 2. An International Atherosclerosis Society position paper: global recommendations for the management of dyslipidemia: executive summary, Atherosclerosis. 2014: 232(2):410-413. Performed By: #### 2 4321-2, 78564-7, , 2776-07 ####[facility] LABORATORYCLIA [id number] [place] [address] [place] Cholesterol in VLDL [Mass/Vol] 19 mg/dL Normal <30 [facility] Comment on above: Order Comment: Speci men Type: BLOOD SPECIMENOrdering Facility: [facility] Address: [address] [place] [address] Performed By: #### 2 4321-2, 52240-7, , 2776-07 ####[facility] LABORATORYCLIA [id number] [address] [place] Cholesterol non HDL [Mass/Vol] 83 mg/dL Normal <130 [facility] Comment on above: Order Comment: Speci men Type: BLOOD SPECIMENOrdering Facility: [facility] Address: [address] [place] [address] Result Comment: <130 mg/dL, Optimal 130-159 mg/dL, Near optimal/above optimal 160-189 mg/dL, Borderline high 190-219 mg/dL, High >219 mg/dL, Very high Secondary prevention optimal non HDL Cholesterol levels are recommended to be <100 mg/dL Performed By: #### 2 4321-2, 53017-8, , 2776-07 ####[facility] LABORATORYCLIA [id number] [address] Cholesterol.total/Pastora sterol in HDL [Mass ratio] 2.48 {ratio} Normal <5.10 [facility] Comment on above: Order Comment: Speci men Type: BLOOD SPECIMENOrdering Facility: [facility] Address: [address] [place] [address] Performed By: #### 2 4321-2, 44045-5, , 2776-07 ####[facility] LABORATORYCLIA [id number] [address] FASTING TIME 8 hrs Normal [facility] Comment on above: Order Comment: Speci men Type: BLOOD SPECIMENOrdering Facility: [facility] Address: [address] [place] [address] Performed By: #### 2 4321-2, 02217-7, , 2776-07 ####[facility] LABORATORYCLIA [id number] [place] [address] [place] Triglyceride [Mass/Vol] 93 mg/dL Normal <150 [facility] Comment on above: Order Comment: Speci men Type: BLOOD SPECIMENOrdering Facility: [facility] Address: [address] [place] [address] Result Comment: <150 mg/dL, Normal 150-199 mg/dL, Borderline high 200-499 mg/dL, High >499 mg/dL, Very high Performed By: #### 2 4321-2, 93200-3, , 2776-07 ####[facility]ORATORYCLIA [id number] [address] [place] Magnesium SerPl-mCncon 06-18 Magnesium [Mass/Vol] 2.1 mg/dL Normal 1.7-2.3 [facility] Comment on above: Order Comment: Speci men Type: BLOOD SPECIMENOrdering Facility: [facility] Address: [address] [place] [address] Performed By: #### 2 4321-2, 17823-7, , 2776-07 ####[facility] LABORATORYCLIA [id number] [address] [place] Phosphate SerPl-mCncon 06-18 Phosphate [Mass/Vol] 3.3 mg/dL Normal 2.7-4.8 [facility] Comment on above: Order Comment: Speci men Type: BLOOD SPECIMENOrdering Facility: [facility] Address: [address] [place] [address] Performed By: #### 2 4321-2, 75995-2, , 2776-07 ####[facility] LABORATORYCLIA [id number] [place] [address] [place] aPTT PPPon 06-18-2022 aPTT Coag (PPP) [Time] 37.2 s High 23.0-32.4 [facility] Comment on above: Order Comment: Speci men Type: BLOOD SPECIMENOrdering Facility: [facility] Address: [address] [place] [address] Performed By: #### 9 4500-6 #### [facility] CLIA [id number] [address] aPTT Coag (PPP) [Time] 58.8 s High 23.0-32.4 [facility] Comment on above: Order Comment: Speci men Type: BLOOD SPECIMENOrdering Facility: [facility] Address: [address] [place] [address] Performed By: #### 1 4979-9 ####[facility] LABORATORYCLIA [id number] [address] aPTT Coag (PPP) [Time] 127.7 s High 23.0-32.4 [facility] Comment on above: Order Comment: Speci men Type: BLOOD SPECIMEN [facility]ing [facility] Address: [address] [place] [address] Performed By: #### T SCR #### [facility] CLIA [id number] [address] ALLIED HEALTHon 06-17-2022 ALLIED HEALTH HNO ID: [id number] Author: RT [place](R) Service: Radiology Author Type: [...] [place](R) June 17, 2022 9:30 AM [facility] ALLIED HEALTH HNO ID: [id number] Author: Jeremías Bragg II Service: Infection Prevention [...] TIME: 8:27 AM PAGER/CONTACT #: Infection Prevention, [id number] Infection Prevention after hours/weekend pager: [phone] [facility] ANES POSTPROC EVALon 022 ANES POSTPROC EVAL HNO ID: [id number] Author: Larry Moss MD Service: Anesthesiology Author Type: Anesthesiologist Type: Anesthesia Postprocedure Evaluation Filed: 06/17/2022 6:51 AM Note Text: POST ANESTHESIA EVALUATION NOTE : 1940 Procedure Summary Date: 06/16/22 Room / Location: [place] OR / [place] Anesthesia Start: 1609 Anesthesia Stop: 1934 [...] June 17, 2022 TIME: 6:50 AM CSN: [id number] Normal [facility] Basic metabolic 2000 panelon 06-17-2022 Anion gap [Moles/Vol] 9 mmol/L Normal 9-18 [facility] Comment on above: Order Comment: Rhina mason Type: BLOOD SPECIMENOrdering Facility: [facility] Address: [address] [place] [address] Performed By: #### 2 4321-2, , 2776-07 ####[facility] LABORATORYCLIA [id number] [place] [id number] [place] Calcium [Mass/Vol] 7.9 mg/dL Low 8.5-10.2 [facility] Comment on above: Order Comment: Rhina mason Type: BLOOD SPECIMENOrdering Facility: [facility] Address: [address] [place] [address] Performed By: #### 2 4321-2, , 2776-07 ####[facility] LABORATORYCLIA [id number] [place] [address] [place] Chloride [Moles/Vol] 107 mmol/L High 97-105 [facility] Comment on above: Order Comment: Speci men Type: BLOOD SPECIMENOrdering Facility: [facility] Address: [address] [place] [address] Performed By: #### 2 4321-2, , 2776-07 ####[facility] [id number] [address] CO2 [Moles/Vol] 21 mmol/L Low 22-30 [facility] Comment on above: Order Comment: Speci men Type: BLOOD SPECIMENOrdering Facility: [facility] Address: [address] [place] [address] Performed By: #### 2 4321-2, , 2776-07 ####[facility] [id number] [address] OF [facility] Creatinine [Mass/Vol] 0.99 mg/dL High 0.58-0.96 [facility] Comment on above: Order Comment: Speci men Type: BLOOD SPECIMENOrdering Facility: [facility] Address: [address] [place] [address] Performed By: #### 2 4321-2, , 2776-07 ####[facility] [id number] [address] ESTIMATED GLOMERULAR FILTRATION RATE 57 mL/min/1.73m??? Low >=60 [facility] Comment on above: Order Comment: Speci men Type: BLOOD SPECIMENOrdering Facility: [facility] Address: [address] [place] [address] Result Comment: Isa mated Glomerular Filtration Rate [...] Performed By: #### 2 4321-2, , 2776-07 ####[facility] LABORATORYCLIA [id number] [place] [address] [place] Glucose [Mass/Vol] 84 mg/dL Normal 74-99 [facility] Comment on above: Order Comment: Speci men Type: BLOOD SPECIMENOrdering Facility: [facility] Address: [address] [place] [address] Result Comment: The [place] Diabetes Association (ADA) provides guidance for cutoff [...] Standards of Medical Care in Diabetes 2016, [place] Diabetes [employer]. Diabetes Care. 2016.39(Suppl 1). Performed By: #### 2 4321-2, , 2776-07 ####[facility] LABORATORYCLIA [id number] [place] [address] [place] Potassium [Moles/Vol] 4.3 mmol/L Normal 3.7-5.1 [facility] Comment on above: Order Comment: Samiri men Type: BLOOD SPECIMENOrdering Facility: [facility] Address: [address] [place], [place] [address] Performed By: #### 2 4321-2, , 2776-07 ####[facility] LABORATORYCLIA [id number] [place] [address] [place] Sodium [Moles/Vol] 137 mmol/L Normal 136-144 [facility] Comment on above: Order Comment: Speci men Type: BLOOD SPECIMENOrdering Facility: [facility] Address: [address] [place], [place] [address] Performed By: #### 2 4321-2, , 2776-07 ####[facility] LABORATORYCLIA [id number] [address] [place] Urea nitrogen [Mass/Vol] 27 mg/dL High 7-21 [facility] Comment on above: Order Comment: Speci men Type: BLOOD SPECIMENOrdering Facility: [facility] Address: [address] [place] [address] Performed By: #### 2 4321-2, 17665-7, 2777-1 ####[facility] LABORATORYCLIA [id number] [address] STATES OF [facility] CBC panel Auto (Bld)on 06-17 Erythrocyte distribution width (RBC) [Ratio] 15.5 % High 11.5-15.0 [facility] Comment on above: Order Comment: Speci men Type: BLOOD SPECIMENOrdering Facility: [facility] Address: [address] [place] [address] Performed By: #### 5 8410-2 ####[facility] LABORATORYCLIA [id number] [address] [place] Hematocrit (Bld) [Volume fraction] 26.6 % Low 36.0-46.0 [facility] Comment on above: Order Comment: Speci men Type: BLOOD SPECIMENOrdering Facility: [facility] Address: [address] [place] [address] Performed By: #### 5 8410-2 ####[facility]ORATORYCLIA [id number] [address] [place] Hemoglobin (Bld) [Mass/Vol] 8.5 g/dL Low 11.5-15.5 [facility] Comment on above: Order Comment: Speci men Type: BLOOD SPECIMENOrdering Facility: [facility] Address: [address] [place] [address] Performed By: #### 5 8410-2 ####[facility]ORATORYCLIA [id number] [address] [place] MCH (RBC) [Entitic mass] 30.0 pg Normal 26.0-34.0 [facility] Comment on above: Order Comment: Speci men Type: BLOOD SPECIMENOrdering Facility: [facility] Address: [address] [address] Performed By: #### 5 8410-2 ####[facility] LABORATORYCLIA [id number] [address] MCHC (RBC) [Mass/Vol] 32.0 g/dL Normal 30.5-36.0 [facility] Comment on above: Order Comment: Speci men Type: BLOOD SPECIMENOrdering Facility: [facility] Address: [address] [place] [address] Performed By: #### 5 8410-2 ####[facility]ORATORYCLIA [id number] [address] MCV (RBC) [Entitic vol] 94.0 fL Normal 80.0-100.0 [facility] Comment on above: Order Comment: Speci men Type: BLOOD SPECIMENOrdering Facility: [facility] Address: [address] [place] [address] Performed By: #### 5 8410-2 ####[facility]ORATORYCLIA [id number] [address] Nucleated RBC (Bld) [#/Vol] 0.02 10*3/uL High <0.01 [facility] Comment on above: Order Comment: Speci men Type: BLOOD SPECIMENOrdering Facility: [facility] Address: [address] [place] [address] Performed By: #### 5 8410-2 ####[facility] LABORATORYCLIA [id number] [address] Platelet mean volume (Bld) [Entitic vol] 9.5 fL Normal 9.0-12.7 [facility] Comment on above: Order Comment: Speci men Type: BLOOD SPECIMENOrdering Facility: [facility] Address: [address] [place] [address] Performed By: #### 5 8410-2 ####[facility]ORATORYCLIA [id number] [address] Platelets (Bld) [#/Vol] 223 10*3/uL Normal 150-400 [facility] Comment on above: Order Comment: Speci men Type: BLOOD SPECIMENOrdering Facility: [facility] Address: [address] [place] [address] Performed By: #### 5 8410-2 ####[facility] LABORATORYCLIA [id number] [address] OF [facility] RBC (Bld) [#/Vol] 2.83 10*6/uL Low 3.90-5.20 [facility] Comment on above: Order Comment: Speci men Type: BLOOD SPECIMENOrdering Facility: [facility] Address: [address] [place] [address] Performed By: #### 5 8410-2 ####[facility]ORATORYCLIA [id number] [address] WBC (Bld) [#/Vol] 8.61 10*3/uL Normal 3.70-11.00 [facility] Comment on above: Order Comment: Speci men Type: BLOOD SPECIMENOrdering Facility: [facility] Address: [address] [place] [address] Performed By: #### 5 8410-2 ####[facility] LABORATORYCLIA [id number] [address] CONSULTon 06-17-2022 CONSULT HNO ID: [id number] Author: García Monique MD Service: Cardiovascular Medicine Author Type: Physician Type: Consults Filed: 06/17/2022 11:14 AM Note Text: CARDIOVASCULAR INTENSIVE CARE UNIT ([facility]) History AND Physical Note PATIENT NAME: Mel Castillo DATE: June 17, 2022 ADMITTED FOR: Subjective HPI Ms. Mel Castillo is a 81 year old female with PMH: - Paroxysmal Afib - GERD - HTN - Hypothyroidism Patient presented to [facility] on [facility]/16/2022 for evaluation of left leg [...] her covid symptoms. 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 Comment: This test has been authorized by FDA under an Emergency Use Authorization (EUA). IMAGING: CT chest: No results found for: (more content not included)... [facility] CONSULT PROGon 06-17-2022 CONSULT PROG HNO ID: [id number] Author: Dominique Lauren RPh Service: Pharmacy Author [...] Dominique Lauren RPh DATE/TIME: 06/17/2022 3:47 PM [facility] CONSULT PROG HNO ID: [id number] Author: Emanuel Hull MD Service: General Surgery [...] questions or concerns Mon-Fri 6a-5p please page [phone]. After 5pm and on Weekends and Holidays, please page [phone] if in ICU or [phone] if on RNF. Subjective SUBJECTIVE: Was able [...] Therapy: Nasal Cannula IANDO: Date 06/16/22699 - 06/17/2265806/17/22699 - 06/18/2259 Shift 8174-0320 4281-7746 8704-7980 24 Hour Total 8248-4284 9066-3779 2835-0636 24 Hour Total INTAKE IV 600 1000 [...] Estimated Blood loss 100 100 Shift Total 415 538 3480 Weight (kg) 72.6 71.2 71.2 71.2 71.2 [...] (more content not included)... Normal [facility] ECHOon 06-17-2022 Echocardiography Echocardiography Report: Transthoracic Echo [facility] Date of service: 06/17/2022 10:27:19 AM HOSPITAL Ordering physician: GARCÍA MONIQUE Indication: Nonsustained atrial fibrillation Technologist: Glendy Pena [facility] Interpreting physician: Nando Costa MD PATIENT: [...] * * Final * * * CC [employer] [facility] Image : [id number] SUID Normal [facility] Magnesium SerPl-mCncon 06-17 Magnesium [Mass/Vol] 2.1 mg/dL Normal 1.7-2.3 [facility] Comment on above: Order Comment: Speci men Type: BLOOD SPECIMENOrdering Facility: [facility] Address: [address] [place] [address] Performed By: #### 2 4321-2, 96527-9, 2777-1 ####[facility] LABORATORYCLIA [id number] [place] [address] [facility] Phosphate SerPl-mCncon 06-17 Phosphate [Mass/Vol] 3.8 mg/dL Normal 2.7-4.8 [facility] Comment on above: Order Comment: Speci men Type: BLOOD SPECIMENOrdering Facility: [facility] Address: [place] [address] Performed By: #### 2 4321-2, 54079-1, 2777-1 ####[facility] LABORATORYCLIA [id number] [place] [address] [facility] XR CHEST 1V FRONTALon 2021 XR CHEST [...] Comparison: None. 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 Hardware noted in the proximal right [...] in both lungs suspicious for multifocal pneumonia. Ripening Room Attendant: PSCB Transcribe Date/Time: Jun 17 2022 10:41A Dictated by : ID MINER MD This examination was interpreted and the report reviewed and electronically signed by: DI MNIER MD on Jun 17 2022 10:43AM EST [id number] Normal [facility] aPTT PPPon 06-17-2022 aPTT Coag (PPP) [Time] 48.4 s High 23.0-32.4 [facility] Comment on above: Order Comment: Speci men Type: BLOOD SPECIMENOrdering Facility: [facility] Address: [address] [address] Performed By: #### 9 4500-6 #### [facility] CLIA [id number] [address] aPTT Coag (PPP) [Time] 29.4 s Normal 23.0-32.4 [facility] Comment on above: Order Comment: Speci men Type: BLOOD SPECIMENOrdering Facility: [facility] Address: [address] [address] Performed By: #### 3 2355-0 #### [facility] CLIA [id number] [address] aPTT Coag (PPP) [Time] 125.1 s High 23.0-32.4 [facility] Comment on above: Order Comment: Speci men Type: BLOOD SPECIMEN [facility] Address: [address] [address] Performed By: #### T SCR #### [facility] CLIA [id number] [address] aPTT Coag (PPP) [Time] s High 23.0-32.4 [facility] Comment on above: Order Comment: Speci men Type: BLOOD SPECIMENOrdering Facility: [facility] Address: [address] [address] Performed By: #### 3 2355-0 #### [facility] CLIA [id number] [address] aPTT Coag (PPP) [Time] 28.5 s Normal 23.0-32.4 [facility] Comment on above: Order Comment: Speci men Type: BLOOD SPECIMENOrdering Facility: [facility] Address: [address] [address] Performed By: #### 1 4979-9 ####[facility]ATORYCLIA [id number] [place] [address] [place] ANES PRE-OPon 06-16-2022 ANES PRE-OP HNO ID: [id number] Author: Olu Winn MD Service: Anesthesiology Author Type: Physician Type: Anesthesia Preprocedure Evaluation Filed: 06/16/2022 5:41 PM Note Text: ANESTHESIOLOGY DAY OF SURGERY NOTE : 1940 Procedure Information Date/Time: 06/16/221539 Procedure: TRANSCATHETER THERAPY VENOUS INFUSION FOR THROMBOLYSIS W/RADIOLOGICAL SUPERVISION/INTERPRETAT ION INITIAL TREATMENT DAY, venogram (Left: Leg lower ) Location: [place] Surgeons: Frida Rodriguez MD Estimated body [...] June 16, 2022 TIME: 3:44 PM CSN: [id number] [facility] BRIEF OP NOTon 06-16-2022 BRIEF OP NOT HNO ID: [id number] Author: Emanuel Hull MD Service: General Surgery [...] BRIEF OPERATIVE / PROCEDURE NOTE LOG ID: [id number] Surgery/Procedure Date: 06/16/2022 Incision/Procedure Start Time: 5:01 PM Incision Close/Procedure End Time: 6:58 PM Surgeon(s)/Proceduralis t(s) and [employer] Expansion Recruiter(s): Surgeon(s) and Role: * Frida Rodriguez MD [...] and on weekends, please page surgery on-call [phone] (RNF) or [phone] (ICU) SIGNATURE: Emanuel Hull MD PATIENT NAME: Mel Castillo DATE: June 16, 2022 TIME: 7:19 PM PAGER/CONTACT #: [phone] Normal [facility] CBC W Auto Differential pane l (Bld)on 06-16-2022 Anisocytosis Ql (Bld) Present Normal [facility] Comment on above: Order Comment: Speci men Type: BLOOD SPECIMENOrdering Facility: [facility] Address: [address] [address] Performed By: #### 5 7021-8 ####[facility]ORYCLIA [id number] [address] [place] Basophils (Bld) [#/Vol] 0.00 10*3/uL Normal <0.11 [facility] Comment on above: Order Comment: Speci men Type: BLOOD SPECIMENOrdering Facility: [facility] Address: [address] [place] [address] Performed By: #### 5 7021-8 ####[facility]ORYCLIA [id number] [address] Basophils/100 WBC (Bld) 0.0 % Normal A [facility] Comment on above: Order Comment: Speci men Type: BLOOD SPECIMENOrdering Facility: [facility] Address: [address] [place] [address] Performed By: #### 5 7021-8 ####[facility]ORYCLIA [id number] [address] Differential cell count method Nom (Bld) Manual Normal [facility] Comment on above: Order Comment: Speci men Type: BLOOD SPECIMENOrdering Facility: [facility] Address: [address] [place] [address] Performed By: #### 5 7021-8 ####[facility]ATORYCLIA [id number] [place] [address] [place] Eosinophils (Bld) [#/Vol] 0.00 10*3/uL Normal <0.46 [facility] Comment on above: Order Comment: Speci men Type: BLOOD SPECIMENOrdering Facility: [facility] Address: [address] [place] [address] Performed By: #### 5 7021-8 ####[facility]ORYCLIA [id number] [address] [place] Eosinophils/100 WBC (Bld) 0.0 % Normal [facility] Comment on above: Order Comment: Speci men Type: BLOOD SPECIMENOrdering Facility: [facility] Address: [address] [place] [address] Performed By: #### 5 7021-8 ####[facility]ORATORYCLIA [id number] [address] Erythrocyte distribution width (RBC) [Ratio] 15.6 % High 11.5-15.0 [facility] Comment on above: Order Comment: Speci men Type: BLOOD SPECIMENOrdering Facility: [facility] Address: [address] [place] [address] Performed By: #### 5 7021-8 ####[facility] LABORATORYCLIA [id number] [address] OF [facility] Hematocrit (Bld) [Volume fraction] 35.3 % Low 36.0-46.0 [facility] Comment on above: Order Comment: Speci men Type: BLOOD SPECIMENOrdering Facility: [facility] Address: [address] [place] [address] Performed By: #### 5 7021-8 ####[facility] LABORATORYCLIA [id number] [address] STATES OF [facility] Hemoglobin (Bld) [Mass/Vol] 11.4 g/dL Low 11.5-15.5 [facility] Comment on above: Order Comment: Speci men Type: BLOOD SPECIMENOrdering Facility: [facility] Address: [address] [place] [address] Performed By: #### 5 7021-8 ####[facility] LABORATORYCLIA [id number] [address] [place] Lymphocytes (Bld) [#/Vol] 1.27 10*3/uL Normal 1.00-4.00 [facility] Comment on above: Order Comment: Speci men Type: BLOOD SPECIMENOrdering Facility: [facility] Address: [address] [place] [address] Performed By: #### 5 7021-8 ####[facility]ORATORYCLIA [id number] [address] [place] Lymphocytes/100 WBC (Bld) 8.0 % Normal [facility] Comment on above: Order Comment: Speci men Type: BLOOD SPECIMENOrdering Facility: [facility] Address: [address] [place] [address] Performed By: #### 5 7021-8 ####[facility] LABORATORYCLIA [id number] [address] STATES [facility] MCH (RBC) [Entitic mass] 30.2 pg Normal 26.0-34.0 [facility] Comment on above: Order Comment: Speci men Type: BLOOD SPECIMENOrdering Facility: [facility] Address: [address] [place] [address] Performed By: #### 5 7021-8 ####[facility]ORATORYCLIA [id number] [address] [place] MCHC (RBC) [Mass/Vol] 32.3 g/dL Normal 30.5-36.0 [facility] Comment on above: Order Comment: Speci men Type: BLOOD SPECIMENOrdering Facility: [facility] Address: [address] [place] [address] Performed By: #### 5 7021-8 ####[facility] LABORATORYCLIA [id number] [address] MCV (RBC) [Entitic vol] 93.6 fL Normal 80.0-100.0 A [facility] Comment on above: Order Comment: Speci men Type: BLOOD SPECIMENOrdering Facility: [facility] Address: [address] [place] [address] Performed By: #### 5 7021-8 ####[facility]ORATORYCLIA [id number] [address] Monocytes (Bld) [#/Vol] 1.74 10*3/uL High <0.87 [facility] Comment on above: Order Comment: Speci men Type: BLOOD SPECIMENOrdering Facility: [facility] Address: [address] [place] [address] Performed By: #### 5 7021-8 ####[facility]ORYCLIA [id number] [address] [place] Monocytes/100 WBC (Bld) 11.0 % Normal A [facility] Comment on above: Order Comment: Speci men Type: BLOOD SPECIMENOrdering Facility: [facility] Address: [address] [place] [address] Performed By: #### 5 7021-8 ####[facility]ATORYCLIA [id number] [address] [place] MYELO% 4.0 % Normal [facility] Comment on above: Order Comment: Speci men Type: BLOOD SPECIMENOrdering Facility: [facility] Address: [address] [place] [address] Performed By: #### 5 7021-8 ####[facility] LABORATORYCLIA [id number] [address] [place] Neutrophils (Bld) [#/Vol] 12.02 10*3/uL High 1.45-7.50 [facility] Comment on above: Order Comment: Speci men Type: BLOOD SPECIMENOrdering Facility: [facility] Address: [address] [place] [address] Performed By: #### 5 7021-8 ####[facility]ORYCLIA [id number] [address] Neutrophils/100 WBC (Bld) 76.0 % Normal [facility] Comment on above: Order Comment: Speci men Type: BLOOD SPECIMENOrdering Facility: [facility] Address: [address] [place] [address] Performed By: #### 5 7021-8 ####[facility]ORYCLIA [id number] [address] [place] Nucleated RBC (Bld) [#/Vol] 10*3/uL Normal <0.01 [facility] Comment on above: Order Comment: Speci men Type: BLOOD SPECIMENOrdering Facility: [facility] Address: [address] [address] Performed By: #### 5 7021-8 ####[facility]ORATORYCLIA [id number] [address] [place] Nucleated RBC/100 WBC (Bld) [Ratio] 0.0 /100 WBC Normal [facility] Comment on above: Order Comment: Speci men Type: BLOOD SPECIMENOrdering Facility: [facility] Address: [address] [place] [address] Performed By: #### 5 7021-8 ####[facility]ORATORYCLIA [id number] [place] [address] [place] Platelet mean volume (Bld) [Entitic vol] 9.7 fL Normal 9.0-12.7 [facility] Comment on above: Order Comment: Speci men Type: BLOOD SPECIMENOrdering Facility: [facility] Address: [address] [place] [address] Performed By: #### 5 7021-8 ####[facility]ORATORYCLIA [id number] [place] [address] [place] Platelets (Bld) [#/Vol] 373 10*3/uL Normal 150-400 [facility] Comment on above: Order Comment: Speci men Type: BLOOD SPECIMENOrdering Facility: [facility] Address: [address] [place] [address] Performed By: #### 5 7021-8 ####[facility]ATORYCLIA [id number] [place] [address] [place] Platelets Estimate (Bld) [#/Vol] Adequate Normal [facility] Comment on above: Order Comment: Speci men Type: BLOOD SPECIMENOrdering Facility: [facility] Address: [address] [place] [address] Performed By: #### 5 7021-8 ####[facility]ATORYCLIA [id number] [place] [address] [place] PROMYL% 1.0 % Normal [facility] Comment on above: Order Comment: Speci men Type: BLOOD SPECIMENOrdering Facility: [facility] Address: [address] [address] Performed By: #### 5 7021-8 ####[facility] LABORATORYCLIA [id number] [address] RBC (Bld) [#/Vol] 3.77 10*6/uL Low 3.90-5.20 [facility] Comment on above: Order Comment: Speci men Type: BLOOD SPECIMENOrdering Facility: [facility] Address: [address] [place] [address] Performed By: #### 5 7021-8 ####[facility] LABORATORYCLIA [id number] [address] RED CELL MORPH Normal Normal [facility] Comment on above: Order Comment: Speci men Type: BLOOD SPECIMENOrdering Facility: [facility] Address: [address] [place] [address] Performed By: #### 5 7021-8 ####[facility] LABORATORYCLIA [id number] [address] SPHEROCYTES Few Normal [facility] Comment on above: Order Comment: Speci men Type: BLOOD SPECIMENOrdering Facility: [facility] Address: [address] [place] [address] Performed By: #### 5 7021-8 ####[facility] LABORATORYCLIA [id number] [address] WBC (Bld) [#/Vol] 15.82 10*3/uL High 3.70-11.00 [facility] Comment on above: Order Comment: Speci men Type: BLOOD SPECIMENOrdering Facility: [facility] Address: [address] [place] [address] Result Comment: Resu lts checked and verified. Performed By: #### 5 7021-8 ####[facility] LABORATORYCLIA [id number] [address] CBC panel Auto (Bld)on 06-16 Erythrocyte distribution width (RBC) [Ratio] 15.5 % High 11.5-15.0 [facility] Comment on above: Order Comment: Speci men Type: BLOOD SPECIMENOrdering Facility: [facility] Address: [address] [place] [address] Performed By: #### 5 8410-2 ####[facility] LABORATORYCLIA [id number] [address] OF [facility] Hematocrit (Bld) [Volume fraction] 30.1 % Low 36.0-46.0 [facility] Comment on above: Order Comment: Speci men Type: BLOOD SPECIMENOrdering Facility: [facility] Address: [address] [place] [address] Performed By: #### 5 8410-2 ####[facility] LABORATORYCLIA [id number] [address] STATES OF [facility] Hemoglobin (Bld) [Mass/Vol] 9.8 g/dL Low 11.5-15.5 [facility] Comment on above: Order Comment: Speci men Type: BLOOD SPECIMENOrdering Facility: [facility] Address: [address] [place] [address] Performed By: #### 5 8410-2 ####[facility] LABORATORYCLIA [id number] [address] [place] MCH (RBC) [Entitic mass] 30.8 pg Normal 26.0-34.0 [facility] Comment on above: Order Comment: Speci men Type: BLOOD SPECIMENOrdering Facility: [facility] Address: [address] [place] [address] Performed By: #### 5 8410-2 ####[facility] LABORATORYCLIA [id number] [address] [place] MCHC (RBC) [Mass/Vol] 32.6 g/dL Normal 30.5-36.0 [facility] Comment on above: Order Comment: Speci men Type: BLOOD SPECIMENOrdering Facility: [facility] Address: [address] [place] [address] Performed By: #### 5 8410-2 ####[facility] LABORATORYCLIA [id number] [address] MCV (RBC) [Entitic vol] 94.7 fL Normal 80.0-100.0 [facility] Comment on above: Order Comment: Speci men Type: BLOOD SPECIMENOrdering Facility: [facility] Address: [address] [place] [address] Performed By: #### 5 8410-2 ####[facility] LABORATORYCLIA [id number] [address] Nucleated RBC (Bld) [#/Vol] 0.08 10*3/uL High <0.01 [facility] Comment on above: Order Comment: Speci men Type: BLOOD SPECIMENOrdering Facility: [facility] Address: [address] [place] [address] Performed By: #### 5 8410-2 ####[facility] LABORATORYCLIA [id number] [address] Platelet mean volume (Bld) [Entitic vol] 9.6 fL Normal 9.0-12.7 [facility] Comment on above: Order Comment: Speci men Type: BLOOD SPECIMENOrdering Facility: [facility] Address: [address] [place] [address] Performed By: #### 5 8410-2 ####[facility] LABORATORYCLIA [id number] [address] Platelets (Bld) [#/Vol] 277 10*3/uL Normal 150-400 [facility] Comment on above: Order Comment: Speci men Type: BLOOD SPECIMENOrdering Facility: [facility] Address: [address] [place] [address] Performed By: #### 5 8410-2 ####[facility] LABORATORYCLIA [id number] [address] [place] RBC (Bld) [#/Vol] 3.18 10*6/uL Low 3.90-5.20 [facility] Comment on above: Order Comment: Rhina mason Type: BLOOD SPECIMENOrdering Facility: [facility] Address: [address] [place] [address] Performed By: #### 5 8410-2 ####[facility] LABORATORYCLIA [id number] [address] OF [facility] WBC (Bld) [#/Vol] 10.43 10*3/uL Normal 3.70-11.00 [facility] Comment on above: Order Comment: Rhina mason Type: BLOOD SPECIMENOrdering Facility: [facility] Address: [address] [place] [address] Performed By: #### 5 8410-2 ####[facility] LABORATORYCLIA [id number] [place] [id number] [facility] CONSULTon 06-16-2022 CONSULT HNO ID: [id number] Author: Iman Saldana DO Service: General Surgery [...] CBC, Coags, BMP, Mg, Phos Recent Labs 06/16/2234006/16/22 0304 WBC 15.82* -- HB 11.4* -- [...] (more content not included)... Normal [facility] CTA ABD/PEL/LOWER EXT W IVCO Non 06-16-2022 CTA ABD/PEL/LOWER EXT W IVCON * * *Final Report* * * DATE OF EXAM: Jun 16 2022 7:33AM [facility] 0122 - CTA ABD/PEL/LOWER EXT W IVCON [...] lobe consolidation may represent pneumonia or atelectasis. Ripening Room Attendant: DEVEN Transcribe Date/Time: Jun 16 2022 7:54A Dictated by : ESTHER MCKEON MD This examination was interpreted and the report reviewed and electronically signed by: ESTHER MCKEON MD on Jun 16 2022 8:22AM EST [id number] Normal [facility] Comprehensive metabolic 2000 panelon 06-16-2022 Albumin [Mass/Vol] 3.2 g/dL Low 3.9-4.9 [facility] Comment on above: Order Comment: Speci men Type: BLOOD SPECIMENOrdering Facility: [facility] Address: [address] [place] [address] Performed By: #### 3 3959-8, 19202-4, 23105-4, 67455-7 ####[facility] LABORATORYCLIA [id number] [place] [address] [place] [facility] ALP [Catalytic activity/Vol] 111 U/L Normal 34-123 [facility] Comment on above: Order Comment: Speci men Type: BLOOD SPECIMENOrdering Facility: [facility] Address: [address] [place] [address] Performed By: #### 3 3959-8, 11832-2, 91266-7, 37067-2 ####[facility] LABORATORYCLIA [id number] [place] [address] [place] ALT With P-5'-P [Catalytic activity/Vol] 20 U/L Normal 7-38 [facility] Comment on above: Order Comment: Speci men Type: BLOOD SPECIMENOrdering Facility: [facility] Address: [address] [place] [address] Performed By: #### 3 3959-8, 18953-3, 07485-7, 53935-0 ####[facility] LABORATORYCLIA [id number] [address] STATES OF [facility] Anion gap [Moles/Vol] 17 mmol/L Normal 9-18 [facility] Comment on above: Order Comment: Speci men Type: BLOOD SPECIMENOrdering Facility: [facility] Address: [address] [place] [address] Performed By: #### 3 3959-8, 86522-4, 86357-2, 77105-0 ####[facility] LABORATORYCLIA [id number] [address] [place] AST With P-5'-P [Catalytic activity/Vol] 13 U/L Normal 13-35 [facility] Comment on above: Order Comment: Speci men Type: BLOOD SPECIMENOrdering Facility: [facility] Address: [address] [place] [address] Performed By: #### 3 3959-8, 25337-3, 36464-6, 44385-7 ####[facility] LABORATORYCLIA [id number] [address] [place] Bilirubin [Mass/Vol] 0.3 mg/dL Normal 0.2-1.3 [facility] Comment on above: Order Comment: Speci men Type: BLOOD SPECIMENOrdering Facility: [facility] Address: [address] [place] [address] Performed By: #### 3 3959-8, 84647-3, 92114-9, 72262-3 ####[facility] LABORATORYCLIA [id number] [address] [place] Calcium [Mass/Vol] 9.1 mg/dL Normal 8.5-10.2 [facility] Comment on above: Order Comment: Speci men Type: BLOOD SPECIMENOrdering Facility: [facility] Address: [address] [place] [address] Performed By: #### 3 3959-8, 77249-0, 35995-0, 89218-0 ####[facility] LABORATORYCLIA [id number] [place] [id number] [place] Chloride [Moles/Vol] 104 mmol/L Normal 97-105 [facility] Comment on above: Order Comment: Speci men Type: BLOOD SPECIMENOrdering Facility: [facility] Address: [address] [place] [address] Performed By: #### 3 3959-8, 37299-6, 81610-5, 92781-5 ####[facility] LABORATORYCLIA [id number] [address] CO2 [Moles/Vol] 18 mmol/L Low 22-30 [facility] Comment on above: Order Comment: Speci men Type: BLOOD SPECIMENOrdering Facility: [facility] Address: [address] [place] [address] Performed By: #### 3 3959-8, 44354-0, 78163-9, 97187-5 ####[facility] LABORATORYCLIA [id number] [address] Creatinine [Mass/Vol] 1.14 mg/dL High 0.58-0.96 [facility] Comment on above: Order Comment: Speci men Type: BLOOD SPECIMENOrdering Facility: [facility] Address: [address] [place] [address] Performed By: #### 3 3959-8, 64213-5, 23031-1, 17174-8 ####[facility] LABORATORYCLIA [id number] [address] ESTIMATED GLOMERULAR FILTRATION RATE 48 mL/min/1.73m??? Low >=60 [facility] Comment on above: Order Comment: Speci men Type: BLOOD SPECIMENOrdering Facility: [facility] Address: [address] [place] [address] Result Comment: Isa mated Glomerular Filtration Rate [...] actual GFR. Performed By: #### 3 3959-8, 29123-9, 61438-7, 39385-1 ####[facility] LABORATORYCLIA [id number] [place] [address] [place] Glucose [Mass/Vol] 122 mg/dL High 74-99 [facility] Comment on above: Order Comment: Speci men Type: BLOOD SPECIMENOrdering Facility: [facility] Address: [address] [place] [address] Result Comment: The [employer] Association (ADA) provides guidance for cutoff [...] Standards of Medical Care in Diabetes 2016, [employer]. Diabetes Care. 2016.39(Suppl 1). Performed By: #### 3 3959-8, 76542-6, 82184-9, 30808-3 ####[facility] LABORATORYCLIA [id number] [place] [address] [place] Potassium [Moles/Vol] 4.4 mmol/L Normal 3.7-5.1 [facility] Comment on above: Order Comment: Rhina isabella Type: BLOOD SPECIMENOrdering Facility: [facility] Address: [address] [place], [place] [address] Performed By: #### 3 3959-8, 13094-9, 44759-4, 37682-9 ####[facility] LABORATORYCLIA [id number] [place] [address] [place] Protein [Mass/Vol] 6.6 g/dL Normal 6.3-8.0 [facility] Comment on above: Order Comment: Speci men Type: BLOOD SPECIMENOrdering Facility: [facility] Address: [address] Performed By: #### 3 3959-8, 93100-2, 28838-6, 21094-9 ####[facility] LABORATORYCLIA [id number] [address] Sodium [Moles/Vol] 139 mmol/L Normal 136-144 [facility] Comment on above: Order Comment: Speci men Type: BLOOD SPECIMENOrdering Facility: [facility] Address: [address] [place] [address] Performed By: #### 3 3959-8, 76823-2, 71197-2, 69254-2 ####[facility] LABORATORYCLIA [id number] [address] [place] Urea nitrogen [Mass/Vol] 35 mg/dL High 7-21 [facility] Comment on above: Order Comment: Speci men Type: BLOOD SPECIMENOrdering Facility: [facility] Address: [address] [place] [address] Performed By: #### 3 3959-8, 29719-6, 21039-3, 56271-0 ####[facility] LABORATORYCLIA [id number] [address] OF [facility] ED NOTEon 06-16-2022 ED NOTE HNO ID: [id number] Author: Adela Cortez RN Service: Emergency Medicine Author Type: Registered Nurse Type: ED Notes Filed: 06/16/2022 11:27 AM Note Text: Pts aptt is >139. Nongram states to hold dose and let MD know. Vascular resident made aware, ordered to hold dose x1 hour and then redraw aptt. Normal [facility] ED NOTE HNO ID: [id number] Author: Nancy Scott RN Service: Emergency Medicine Author Type: Registered Nurse Type: ED Notes Filed: 06/16/2022 7:13 AM Note Text: CT notified that pt has been moved to new room and is ready for testing Normal [facility] ED NOTE HNO ID: [id number] Author: Marleen Blank RN Service: ? Author Type: Registered Nurse Type: ED Notes Filed: 06/16/2022 6:59 AM Note Text: Bed: 19-ED Expected date: Expected time: Means of arrival: Comments: [facility] ED NOTE HNO ID: [id number] Author: Nancy Scott RN Service: Emergency Medicine Author Type: Registered Nurse Type: ED Notes Filed: 06/16/2022 6:44 AM Note Text: CT delayed due to pt needing to move rooms because of bed bugs. [facility] ED NOTE HNO ID: [id number] Author: Nancy Scott RN Service: Emergency Medicine Author Type: Registered Nurse Type: ED Notes Filed: 06/16/2022 3:09 AM Note Text: CT form faxed, ptt sent [facility] ED NOTE HNO ID: [id number] Author: Nancy Scott RN Service: Emergency Medicine Author Type: Registered Nurse Type: ED Notes Filed: 06/16/2022 3:02 AM Note Text: US notified [facility] ED NOTE HNO ID: [id number] Author: Nancy Scott RN Service: Emergency Medicine Author Type: Registered Nurse Type: ED Notes Filed: 06/16/2022 2:48 AM Note Text: CT notified [facility] ED NOTE HNO ID: [id number] Author: Nancy Scott RN Service: Emergency Medicine Author Type: Registered Nurse Type: ED Notes Filed: 06/16/2022 2:43 AM Note Text: Labs sent [facility] ED NOTE HNO ID: [id number] Author: Davian Chen RN Service: ? Author Type: Registered Nurse Type: ED Notes Filed: 06/16/2022 2:06 AM Note Text: Bed: 15-ED Expected date: Expected time: Means of arrival: Comments: ramesh [facility] ED PROV NOTEon 06-16-2022 ED PROV NOTE HNO ID: [id number] Author: Vanessa Trevizo DO Service: Emergency Medicine [...] Temp Temp src Resp SpO2 Weight Height 06/16/22 0211 06/16/22 0211 06/16/22 0811 -- 06/16/22 0211 1121006/16/22 021 -- /65 (!) 130 36.5 ?C (97.7 ?F) 22 [...] (more content not included)... Normal [facility] ED PROV NOTE HNO ID: [id number] Author: Vanessa Trevizo DO Service: Emergency Medicine [...] Trevizo DO 06/16/22 0323 Normal [facility] EKGon 06-16-2022 Electrocardiogram Ventricular Rate : 1 13 BPM Atrial Rate : 122 BPM QRS Duration : 100 ms Q-T Interval : 282 ms QTC Calculation(Bazett) : 386 ms Calculated R Monroe : 46 degrees Calculated T Monroe : -40 degrees ATRIAL FIBRILLATION WITH RAPID VENTRICULAR RESPONSE ABNORMAL QRS-T ANGLE, CONSIDER PRIMARY T WAVE ABNORMALITY ABNORMAL ECG NO PREVIOUS ECGS AVAILABLE Confirmed by MD CARLOS, MARINE ([id number]) on 06/16/2022 6:43:12 PM NAME : MEL GUADARRAMA PID : [id number] : 1940 Gender : Female Race : ORD : Procedure Date : Jun 16 2022 07:37:07 Edit Date : Jun 16 2022 18:43:17 Diagnosis: ATRIAL FIBRILLATION WITH RAPID VENTRICULAR RESPONSE ABNORMAL QRS-T ANGLE, CONSIDER PRIMARY T WAVE ABNORMALITY ABNORMAL ECG NO PREVIOUS ECGS AVAILABLE Confirmed by MD LEONE CAROL ([id number]) on 06/16/2022 6:43:12 PM Test Reason : Location : 4 : [place] [address] Overread By : MD LEONE CAROL Edited By : MD LEONE CAROL Referred By : , Acquired by : PATRICIA MOE [facility] HIGH SENSITIVITY TROPONIN T (INITIAL)on 06-16-2022 HIGH SENSITIVITY CHRISTOPHER 34 ng/L High <12 [facility] Comment on above: Order Comment: Rhina mason Type: BLOOD SPECIMENOrdering Facility: [facility] Address: [address] [place] [address] Result Comment: When assessing risk for acute [...] MACE. Performed By: #### 3 2355-0 #### [facility] CLIA [id number] [address] HIGH SENSITIVITY TROPONIN T (SECOND)on 06-16-2022 HIGH SENSITIVITY CHRISTOPHER 28 ng/L High <12 [facility] Comment on above: Order Comment: Rhina mason Type: BLOOD SPECIMENOrdering Facility: [facility] Address: [address] [place] [address] Result Comment: When assessing risk for acute [...] 30 day MACE. Performed By: #### L [id number] ####[facility] LABORATORYCLIA [id number] [place] [address] [place] HIGH SENSITIVITY TROPONIN T (THIRD) 3 HRS AFTER INITIALon 06-16-2022 HIGH SENSITIVITY CHRISTOPHER 23 ng/L High <12 [facility] Comment on above: Order Comment: Speci men Type: BLOOD SPECIMENOrdering Facility: [facility] Address: [place] [address] Result Comment: When assessing risk for acute [...] 30 day MACE. Performed By: #### L [id number] ####[facility] LABORATORYCLIA [id number] [place] [address] [facility] HISTORY PHYSICALon HISTORY PHYSICAL HNO ID: [id number] Author: Kristen Jones APRN.CNP Service: Hospital Medicine Author Type: Nurse Practitioner Type: HANDP Filed: 06/16/2022 1:27 PM Note Text: DEPARTMENT OF HOSPITAL MEDICINE HISTORY AND PHYSICAL EXAM SERVICE DATE: 06/16/2022 SERVICE TIME: 12:02 PM Primary Care Physician: Dr. Evans Admitting Provider: Kristen Jones APRN.CNP NIGHT AND WEEKEND COVERAGE: After 7pm, please call cross cover pager #[phone] Subjective CHIEF COMPLAINT: Left leg pain, discoloration [...] this patient has 2 charts. Mel Garcia [id number] and Mel Castillo [id number]. PAST MEDICAL HISTORY Diagnosis Date Acute bacterial [...] chest pain Gastrointestinal: + diarrhea x 1 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 Genitourinary: Denies dysuria Musculoskeletal: + left leg [...] (more content not included)... Normal [facility] Magnesium SerPl-mCncon 06-16 Magnesium [Mass/Vol] 2.4 mg/dL High 1.7-2.3 [facility] Comment on above: Order Comment: Speci men Type: BLOOD SPECIMENOrdering Facility: [facility] Address: [address] [place] [address] Performed By: #### 3 3959-8, 91666-2, 68307-5, 87850-0 ####[facility] LABORATORYCLIA [id number] [place] [id number] [place] NT-proBNP SerPl-mCncon 06-16 Natriuretic peptide.B prohormone N-Terminal [Mass/Vol] 4156 pg/mL High <450 [facility] Comment on above: Order Comment: Speci men Type: BLOOD SPECIMEN [facility] Address: [address] [place], [place] [address] Performed By: #### T SCR #### [facility] CLIA [id number] [address] OF [facility] NURSING PROGon 06-16-2022 NURSING PROG HNO ID: [id number] Author: Kayden José RN Service: Trauma Author [...] RECEIVING NURSE. NIKKY FRAGA. Normal [facility] PT panel Coag (PPP)on 2021 INR Coag (PPP) [Relative time] 1.1 {INR} Normal 0.9-1.3 [facility] Comment on above: Order Comment: Rhina mason Type: BLOOD SPECIMENOrdering Facility: [facility] Address: [address] [place] [address] Result Comment: Mayra min K Antagonist (VKA) Therapeutic Range: INR 2 to 3 (Target INR of 2.5) Note: For patients treated with VKA drugs, such as warfarin, the [employer] 2012 Guideline recommends [...] JACC 2017, 70: 252-289 Performed By: #### 3 4528-0, 29700-7 ####[facility] LABORATORYCLIA [id number] [address] OF [facility] PT Coag (PPP) [Time] 11.3 s Normal 9.7-13.0 [facility] Comment on above: Order Comment: Speci men Type: BLOOD SPECIMENOrdering Facility: [facility] Address: [address] [place] [address] Performed By: #### 3 4528-0, 35426-8 ####[facility] LABORATORYCLIA [id number] [address] Procalcitonin SerPl-mCncon 1 08-16-2021 Procalcitonin [Mass/Vol] 0.19 ng/mL High <0.09 [facility] Comment on above: Order Comment: Speci men Type: BLOOD SPECIMEN Ordering [facility] Address: [address] [place] [address] Result Comment: For a guided interpretation of test results, please visit the Change in Procalcitonin Calculator, [email or web address]. Performed By: #### T SCR #### [facility] CLIA [id number] [address] OF [facility] SARS-CoV-2 RNA Resp Ql OXANA+p robeon 06-16-2022 SARS-CoV-2 (COVID-19) RNA OXANA+probe Ql (Resp) COVID 19 RESULT: SARS-CoV-2 (Agent of COVID-19) Detected by RT-PCR or equivalent method. This test has been authorized by FDA under an Emergency Use Authorization (EUA). Normal [facility] Comment on above: Performed By: #### 9 4500-6 #### [facility] CLIA [id number] [address] [place] US DVT LOWER LTon [...] Communication: Communicated with Larissa Torres MD on 05 via verbal communication. Ripening Room Attendant: DEVEN Transcribe Date/Time: Jun 16 2022 5:07A Dictated by : SKIP NOEL MD This examination was interpreted and the report reviewed and electronically signed by: SKIP NOEL MD on Jun 16 2022 5:17AM EST [id number] Normal [facility] aPTT PPPon 06-16-2022 aPTT Coag (PPP) [Time] 74.2 s High 23.0-32.4 [facility] Comment on above: Order Comment: Speci men Type: BLOOD SPECIMENOrdering Facility: [facility] Address: [address] [place] [address] Performed By: #### 1 4979-9 ####[facility] [facility] LABORATORYCLIA [id number] [address] aPTT Coag (PPP) [Time] 134.7 s High 23.0-32.4 [facility] Comment on above: Order Comment: Speci men Type: BLOOD SPECIMENOrdering Facility: [facility] Address: [address] [place] [address] Performed By: #### 1 4979-9 ####[facility] LABORATORYCLIA [id number] [address] aPTT Coag (PPP) [Time] s High 23.0-32.4 [facility] Comment on above: Order Comment: Speci men Type: BLOOD SPECIMENOrdering Facility: [facility] Address: [address] [place] [address] Performed By: #### 1 [id number] ####[facility] LABORATORYCLIA [id number] [address] aPTT Coag (PPP) [Time] 21.7 s Low 23.0-32.4 [facility] Comment on above: Order Comment: Speci men Type: BLOOD SPECIMENOrdering Facility: [facility] Address: [address] [place] [address] Performed By: #### 3 [id number], [id number] ####[facility] LABORATORYCLIA [id number] [address] CULTURE AND STAIN - TISSUEon 03-10-2020 [...] 0.12 S Rifampin(AGATA) <= 0.5 S Normal [facility] Comment on above: Performed By: #### C XTIS #### [address] [address] [id number] #### C/DAMIÁN #### [place] [address] CR Finger(s) Min 2 Views [facility] 03-07-2020 CR Finger(s) Min 2 Views Right Patient Name: MEL POP Diagnostic Radiology Exam Date/Time 03/06/2020 10:30:00 EDT Exam CR Finger(s) Min 2 Views Right Ordering Physician MD GUSTAVO, JAYLA Stoll Accession Number [id number] CPT4 Codes 96021 () Reason For Exam pain Report Right [...] was communicated to JAYLA MCMAHAN via the [employer] Critical Result system on 03/07/2020 8:07 PM EDT, Message ID [id number]. Report Dictated on Final Dictating Physician: MD PERRY DIANE Signed Date and Time: 03/07/2020 8:07 pm Signed by: MD PERRY DIANE Transcribed Date and Time: 03/07/2020 8:08 Normal [facility] CULTURE ANAEROBEon 0 CULTURE ANAEROBE CULTURE ANAEROBE --> Status: F No growth of anaerobes at 5 days. STAIN GRAM --> Status: F Few polymorphonuclear cells/lpf. No organisms seen. No organisms seen. Normal [facility] Comment on above: Performed By: #### C XTIS #### [place] [address] [place] [address] [id number] #### C/DAMIÁN #### [address] [address] Vital Signs Date Time Vital Sign Value Performing Clinician Facility 03-15-2025 11:06-0400 Body height 160 cm Andre Berry MD Work Phone: [facility] 03-15-2025 11:06-0400 Body mass index (BMI) [Ratio] 27.1 kg/m2 Andre Berry MD Work Phone: [facility] 03-15-2025 11:06-0400 Body temperature 97.39 [degF] Andre Berry MD Work Phone: [facility] 03-15-2025 11:06-0400 Body weight 69.4 kg Andre Berry MD Work Phone: [facility] Comment on above: unable to stand for ht and wt today 03-15-2025 11:06-0400 Diastolic blood pressure 48 mm[Hg] Andre Berry MD Work Phone: [facility] 03-15-2025 11:06-0400 Heart rate 45 /min Andre Berry MD Work Phone: [facility] 03-15-2025 11:06-0400 SaO2% (BldA) [Mass fraction] 100 % Andre Berry MD Work Phone: [facility] 03-15-2025 11:06-0400 Systolic blood pressure 97 mm[Hg] Andre Berry MD Work Phone: [facility] 12-24-2024 14:45-0400 Body mass index (BMI) [Ratio] 27.1 kg/m2 Kristyn Blankenship MD Work Phone: [facility] 12-24-2024 14:45-0400 Body weight 69.4 kg Kristyn Blankenship MD Work Phone: [facility] 12-05-2024 10:20-0400 Body height 160 cm Kristyn Blankenship MD Work Phone: [facility] 12-05-2024 10:20-0400 Body mass index (BMI) [Ratio] 29.23 kg/m2 Kristyn Blankenship MD Work Phone: [facility] 12-05-2024 10:20-0400 Body weight 74.84 kg Kristyn Blankenship MD Work Phone: [facility] 12-05-2024 10:20-0400 Diastolic blood pressure 78 mm[Hg] Kristyn Blankenship MD Work Phone: [facility] 12-05-2024 10:20-0400 Heart rate 78 /min Kristyn Blankenship MD Work Phone: [facility] 12-05-2024 10:20-0400 Respiratory rate 18 /min Kristyn Blankenship MD Work Phone: [facility] 12-05-2024 10:20-0400 SaO2% (BldA) [Mass fraction] 94 % Kristyn Blankenship MD Work Phone: [facility] 12-05-2024 10:20-0400 Systolic blood pressure 102 mm[Hg] Kristyn Blankenship MD Work Phone: [facility] 11-22-2024 13:45-0400 Diastolic blood pressure 54 mm[Hg] Kristyn Blankenship MD Work Phone: [facility] 11-22-2024 13:45-0400 Heart rate 58 /min Kristyn Blankenship MD Work Phone: [facility] 11-22-2024 13:45-0400 Respiratory rate 18 /min Kristyn Blankenship MD Work Phone: [facility] 11-22-2024 13:45-0400 SaO2% (BldA) [Mass fraction] 95 % Kristyn Blankenship MD Work Phone: [facility] 11-22-2024 13:45-0400 Systolic blood pressure 139 mm[Hg] Kristyn Blankenship MD Work Phone: [facility] 11-22-2024 13:15-0400 Body temperature 97.11 [degF] Kristyn Blankenship MD Work Phone: [facility] 11-22-2024 08:25-0400 Body height 160 cm Kristyn Blankenship MD Work Phone: [facility] 11-22-2024 08:25-0400 Body mass index (BMI) [Ratio] 29.23 kg/m2 Kristyn Blankenship MD Work Phone: [facility] 11-22-2024 08:25-0400 Body weight 74.84 kg Kristyn Blankenship MD Work Phone: [facility] 11-05-2024 15:42-0400 Body height 160 cm Kristyn Blankenship MD Work Phone: [facility] 11-05-2024 15:42-0400 Body mass index (BMI) [Ratio] 29.23 kg/m2 Kristyn Blankenship MD Work Phone: [facility] 11-05-2024 15:42-0400 Body weight 74.84 kg Kristyn Blankenship MD Work Phone: [facility] 11-05-2024 15:42-0400 Diastolic blood pressure 64 mm[Hg] Kristyn Blankenship MD Work Phone: [facility] 11-05-2024 15:42-0400 Heart rate 65 /min Kristyn Blankenship MD Work Phone: [facility] 11-05-2024 15:42-0400 Respiratory rate 18 /min Kristyn Blankenship MD Work Phone: [facility] 11-05-2024 15:42-0400 SaO2% (BldA) [Mass fraction] 98 % Kristyn Blankenship MD Work Phone: [facility] 11-05-2024 15:42-0400 Systolic blood pressure 122 mm[Hg] Kristyn Blankenship MD Work Phone: [facility] 08-22-2024 10:32-0500 Body height 160 cm Henok Darlyn PA-C Work Phone: [facility] 08-22-2024 10:32-0500 Body mass index (BMI) [Ratio] 29.23 kg/m2 Henok Darlyn PA-C Work Phone: [facility] 08-22-2024 10:32-0500 Body weight 74.84 kg Henok Darlyn PA-C Work Phone: [facility] 08-22-2024 10:32-0500 Diastolic blood pressure 62 mm[Hg] Henok Darlyn PA-C Work Phone: [facility] 08-22-2024 10:32-0500 Respiratory rate 18 /min Henok Darlyn PA-C Work Phone: [facility] 08-22-2024 10:32-0500 Systolic blood pressure 104 mm[Hg] Henok Darlyn PA-C Work Phone: [facility] 08-16-2024 07:19-0500 Body temperature 97.59 [degF] Mariana King DO Work Phone: [facility] 08-16-2024 07:19-0500 Diastolic blood pressure 66 mm[Hg] Mariana King DO Work Phone: [facility] 08-16-2024 07:19-0500 Heart rate 85 /min Mariana King DO Work Phone: [facility] 08-16-2024 07:19-0500 Respiratory rate 18 /min Mariana King DO Work Phone: [facility] 08-16-2024 07:19-0500 SaO2% (BldA) [Mass fraction] 94 % Mariana King DO Work Phone: [facility] 08-16-2024 07:19-0500 Systolic blood pressure 135 mm[Hg] Mariana King DO Work Phone: [facility] 08-03-2024 08:32-0500 Body height 162 cm Mariana King DO Work Phone: [facility] 08-03-2024 08:32-0500 Body mass index (BMI) [Ratio] 28.58 kg/m2 Mariana King DO Work Phone: [facility] 08-03-2024 08:32-0500 Body weight 75 kg Mariana King DO Work Phone: [facility] 07-07-2024 06:03-0500 Body temperature 97.7 [degF] Wm Mudrakola DO Work Phone: [facility] 07-07-2024 06:03-0500 Diastolic blood pressure 67 mm[Hg] Wm Mudrakola DO Work Phone: [facility] 07-07-2024 06:03-0500 Heart rate 69 /min Wm Mudrakola DO Work Phone: [facility] 07-07-2024 06:03-0500 Respiratory rate 12 /min Wm Mudrakola DO Work Phone: [facility] 07-07-2024 06:03-0500 SaO2% (BldA) [Mass fraction] 94 % Wm Mudrakola DO Work Phone: [facility] 07-07-2024 06:03-0500 Systolic blood pressure 149 mm[Hg] Wm Kimla DO Work Phone: [facility] 07-05-2024 10:00-0500 Body height 162.6 cm Wm Nunes DO Work Phone: [facility] 07-05-2024 10:00-0500 Body mass index (BMI) [Ratio] 27.46 kg/m2 Wm Nunes DO Work Phone: [facility] 07-05-2024 10:00-0500 Body weight 72.58 kg Wm Nunes DO Work Phone: [facility] 05-14-2024 15:34-0400 Body height 162.6 cm Jared Evans MD Work Phone: [facility] 05-14-2024 15:34-0400 Body mass index (BMI) [Ratio] 25.23 kg/m2 Jared Evans MD Work Phone: [facility] 05-14-2024 15:34-0400 Body weight 66.68 kg Jared Evans MD Work Phone: [facility] 04-25-2024 13:39-0400 Body height 162.6 cm Henok Hernandez PA-C Work Phone: [facility] 04-25-2024 13:39-0400 Body mass index (BMI) [Ratio] 25.23 kg/m2 Henok BARGERC Work Phone: [facility] 04-25-2024 13:39-0400 Body weight 66.68 kg Henok Hernandez PA-C Work Phone: [facility] 04-25-2024 13:39-0400 Diastolic blood pressure 66 mm[Hg] Henok Hernandez PA-C Work Phone: [facility] 04-25-2024 13:39-0400 Heart rate 98 /min Henok Mary PA-C Work Phone: [facility] 04-25-2024 13:39-0400 Respiratory rate 18 /min Henok Hernandez PA-C Work Phone: [facility] 04-25-2024 13:39-0400 SaO2% (BldA) [Mass fraction] 95 % Henok Hernandez PA-C Work Phone: [facility] 04-25-2024 13:39-0400 Systolic blood pressure 110 mm[Hg] Henok Hernandez PA-C Work Phone: [facility] 04-13-2024 08:04-0400 Heart rate 92 /min Winifred Cornell DO Work Phone: [facility] 04-13-2024 07:49-0400 Body temperature 97.2 [degF] Winifred Huertasffey DO Work Phone: [facility] 04-13-2024 07:49-0400 Diastolic blood pressure 89 mm[Hg] Winifred Skiffey DO Work Phone: [facility] 04-13-2024 07:49-0400 Respiratory rate 20 /min Winifred Huertasffey DO Work Phone: [facility] 04-13-2024 07:49-0400 SaO2% (BldA) [Mass fraction] 98 % Winifred Huertasffey DO Work Phone: [facility] 04-13-2024 07:49-0400 Systolic blood pressure 156 mm[Hg] Winifred Skiffey DO Work Phone: [facility] 04-03-2024 17:52-0400 Body height 162.6 cm Winifred Skiffey DO Work Phone: [facility] 04-03-2024 17:52-0400 Body mass index (BMI) [Ratio] 27.38 kg/m2 Winifred Skiffey DO Work Phone: [facility] 04-03-2024 17:52-0400 Body weight 72.35 kg Winifred Huertasffey DO Work Phone: [facility] 07-27-2023 14:23-0500 Body height 162.6 cm Ming Weinberg MD Work Phone: [facility] 07-27-2023 14:23-0500 Body mass index (BMI) [Ratio] 27.29 kg/m2 Ming Weinberg MD Work Phone: [facility] 07-27-2023 14:23-0500 Body weight 72.12 kg Ming Weinberg MD Work Phone: [facility] 05-14-2022 15:01-0400 Diastolic blood pressure 84 mm[Hg] Jared Slabaugh PA-C Work Phone: [facility] 05-14-2022 15:01-0400 Systolic blood pressure 154 mm[Hg] Ajred Slabaugh PA-C Work Phone: [facility] 05-14-2022 14:32-0400 Body height 162.6 cm Jared Slabaugh PA-C Work Phone: [facility] 05-14-2022 14:32-0400 Body weight 72.58 kg Jared Slabaugh PA-C Work Phone: [facility] 05-14-2022 14:32-0400 Heart rate 71 /min Jared Slabaugh PA-C Work Phone: [facility] 05-14-2022 14:32-0400 Respiratory rate 16 /min Jared Slabaugh PA-C Work Phone: [facility] 05-14-2022 14:32-0400 SaO2% (BldA) [Mass fraction] 98 % Jared Slabaugh PA-C Work Phone: [facility] 03-07-2020 09:57-0400 Body Temperature 98.71 [degF] [facility] [place] 03-07-2020 09:57-0400 BP Diastolic 64 mm[Hg] [facility] [place] 03-07-2020 09:57-0400 BP Systolic 161 mm[Hg] [facility] [place] 03-07-2020 09:57-0400 Pulse (Heart Rate) 77 /min [facility] [place] [place] 03-07-2020 09:57-0400 Pulse Oximetry 96 % [facility] [place] [facility] [place] 03-07-2020 08:32-0400 Respiratory Rate 14 /min [facility] [place] 02-08-2020 20:50-0400 Body Temperature 97.5 [degF] [facility]uri [facility] [place] 02-08-2020 20:50-0400 BP Diastolic 81 mm[Hg] Maryuri King [facility] [place] , [place] 02-08-2020 20:50-0400 BP Systolic 193 mm[Hg] [facility] [place] [facility] [place] 02-08-2020 20:50-0400 Pulse (Heart Rate) 68 /min Maryuri Mcfadden [facility]- [place], [place] 02-08-2020 20:50-0400 Pulse Oximetry 97 % Maryuri Mcfadden [facility]- [place] , [place] 02-08-2020 20:50-0400 Respiratory Rate 16 /min [facility] [place] Encounters Encounter Date Encounter Type Care Provider Facility Start: 04-29-2025 ambulatory Megan EVERETT Faci lity:[facility] Start: 04-04-2025 ambulatory Megan Montoya OLS Faci lity:[facility] Start: 04-02-2025 ambulatory Megan EVERETT Faci lity:[facility] Start: 03-28-2025 ambulatory Megan Luannevictoriano EVERETT Faci lity:[facility] Start: 03-15-2025 End: 03-15-2025 Office outpatient visit 25 minutes Andre Patel MD Work Phone: [facility] Comment on above: Acute deep vein thro mbosis (DVT) of proximal vein of lower extremity, unspecified laterality (HCC) (Primary Dx) Start: 03-15-2025 End: 03-15-2025 ambulatory MEGAN MONTOYA [facility] Start: 03-04-2025 ambulatory Megan EVERETT Faci lity:[facility] Start: 02-25-2025 ambulatory Peter Katsaros OLS Faci lity:[facility] Start: 02-18-2025 ambulatory Megan Stroudsaros OLS Faci lity:[facility] Start: 02-15-2025 ambulatory Megan Stroudsaros OLS Faci lity:[facility] Start: 02-11-2025 ambulatory Megan Stroudsaros OLS Faci lity:[facility] Start: 02-07-2025 ambulatory Megan Stroudsaros OLS Faci lity:[facility] Start: 02-04-2025 ambulatory Megan Stroudsaros OLS Faci lity:[facility] Start: 01-31-2025 ambulatory Megan Stroudsaros OLS Faci lity:[facility] Start: 01-28-2025 ambulatory Megan Katsaros OLS Faci lity:[facility] Start: 01-25-2025 ambulatory Megan Katsaros OLS Faci lity:[facility] Start: 01-23-2025 ambulatory Megan Stroudsaros OLS Faci lity:[facility] Start: 01-22-2025 ambulatory Megan Stroudsaros OLS Faci lity:[facility] Start: 01-21-2025 ambulatory Megan Stroudsaros OLS Faci lity:[facility] Start: 01-17-2025 ambulatory Megan Stroudsaros OLS Faci lity:[facility] Start: 01-16-2025 ambulatory Megan Stroudsaros OLS Faci lity:[facility] Start: 01-15-2025 ambulatory Megan Stroudsaros OLS Faci lity:[facility] Start: 01-07-2025 ambulatory Megan Stroudsaros OLS Faci lity:[facility] Start: 01-02-2025 End: 01-02-2025 Orders Only Namrata Christensen [facility] Comment on above: 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) Right retinal detach ment (Primary Dx); Hemorrhagic choroidal detachment of right eye; Pseudophakia, right eye Start: 12-24-2024 End: 12-24-2024 ambulatory MEGAN MONTOYA [facility] Start: 12-24-2024 End: 12-24-2024 Office outpatient visit 15 minutes Kristyn Blankenship MD Work Phone: [facility] [place] Comment on above: Aftercare following surgery of the circulatory system (Primary Dx); PAD (peripheral artery disease) (HCC) Start: 12-13-2024 End: 02-12-2025 Follow-up encounter Shivani Rayo CNP Work Phone: [facility] [place] Comment on above: Vascular US lower ex tremity arterial duplex right with MICHELLE Start: 12-13-2024 End: 12-13-2024 ambulatory MEGAN MONTOYA [facility] Start: 12-13-2024 End: 12-13-2024 Subsequent hospital visit by physician Kristyn Blankenship MD Work Phone: [facility] Comment on above: Skin ulcer of toe of right foot, limited to breakdown of skin (HCC); PAD (peripheral artery disease) (HCC); Aftercare following surgery of the circulatory system Start: 12-05-2024 End: 12-05-2024 [facility] Start: 12-05-2024 End: 12-05-2024 Office outpatient visit 10 minutes Kristyn Blankenship MD Work Phone: [facility] [place] Comment on above: Skin ulcer of toe of right foot, limited to breakdown of skin (HCC) (Primary Dx); PAD (peripheral artery disease) (HCC); Aftercare following surgery of the circulatory system Start: 11-22-2024 End: 11-22-2024 ambulatory [facility] Start: 11-22-2024 End: 11-22-2024 Subsequent hospital visit by physician Kristyn Blankenship MD Work Phone: [facility] Start: 11-15-2024 End: 11-15-2024 ambulatory Megan Luannevictoriano [facility] Facility:[facility] Start: 11-09-2024 End: 11-13-2024 ambulatory Henok Lantigua PA-C Work Phone: [facility] - [place] Comment on above: 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) (Primary Dx) Pre-op evaluation (P rimary Dx) Start: 11-09-2024 End: 11-13-2024 Preprocedural examination done Henok Lantigua PA-C Work Phone: [employer] Phone: Start: 11-05-2024 End: 11-05-2024 ambulatory JARED EVANS [facility] Start: 11-05-2024 End: 11-05-2024 Office outpatient visit 25 minutes Kristyn Blankenship MD Work Phone: [facility] [place] Comment on above: PAD (peripheral aidee ry disease) (HCC) (Primary Dx); Skin ulcer of toe of right foot, limited to breakdown of skin (HCC) Start: 10-08-2024 End: 10-08-2024 ambulatory Megan EVERETT [facility] Work Phone: Start: 10-08-2024 End: 10-08-2024 Departed Referred [place] [facility] [employer] Start: 10-08-2024 Registered Referred Megan Rincon [employer] Start: 10-08-2024 End: 10-08-2024 ambulatory Megan EVERETT Facility:[facility] Start: 10-01-2024 End: 10-01-2024 Patient encounter procedure Savana Lopez MD Work Phone: Ophthalmology Comment on above: 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 Start: 09-17-2024 End: 09-17-2024 ambulatory Megan EVERETT [facility] Work Phone: Start: 09-17-2024 End: 09-17-2024 Departed Referred [place] [employer] Start: 09-17-2024 Registered Referred Megan Rincon [place] [employer] Start: 09-17-2024 End: 09-17-2024 ambulatory Megan EVERETT Facility:[facility] Start: 09-10-2024 End: 09-10-2024 ambulatory Megan EVERETT [facility] Work Phone: Start: 09-10-2024 End: 09-10-2024 Departed Referred Megan BISWAS Start: 09-10-2024 Registered Referred Megan BISWAS Start: 09-10-2024 End: 09-10-2024 ambulatory Megan EVERETT Facility:[facility] Start: 09-05-2024 End: 09-05-2024 ambulatory SAVANA LOPEZ Facility:[facility] Start: 09-05-2024 End: 09-05-2024 Patient encounter procedure Savana Lopez MD Work Phone: Ophthalmology Comment on above: Postoperative eye st ate; Hemorrhagic choroidal detachment of right eye; Pseudophakia, right eye; Subluxation of right lens Start: 09-03-2024 End: 09-03-2024 ambulatory Megan EVERETT [facility] Work Phone: Start: 09-03-2024 End: 09-03-2024 Departed Referred Megan BISWAS Start: 09-03-2024 Registered Referred Megan BISWAS Start: 09-03-2024 End: 09-03-2024 ambulatory Megan EVERETT Facility:[facility] Start: 08-22-2024 End: 08-22-2024 ambulatory JARED [facility] Start: 08-22-2024 End: 08-22-2024 Office outpatient visit 15 minutes Henok Lantigua PA-C Work Phone: [facility] [place] Comment on above: Acute deep vein thro mbosis (DVT) of iliac vein of right lower extremity (HCC) (Primary Dx); PAD (peripheral artery disease) (HCC) Start: 08-20-2024 End: 08-20-2024 ambulatory Megan EVERETT [facility] Work Phone: Start: 08-20-2024 End: 08-20-2024 Departed Referred Megan BISWAS Start: 08-20-2024 End: 08-20-2024 ambulatory Megan EVERETT Facility:[facility] Start: 08-03-2024 End: 08-03-2024 Subsequent hospital visit by physician [facility] Exam Room [address] [facility] [address] Comment on above: Arrived Start: 08-03-2024 End: 08-16-2024 ambulatory [facility] Start: 08-03-2024 End: 08-16-2024 Emergency department patient visit Mariana King DO Work Phone: [facility] Comment on above: Aspiration pneumonit is (CMS/HCC) ([facility]) (Primary Dx); Vomiting and diarrhea; LORENZA (acute kidney injury) ([facility]) Start: 08-01-2024 End: 08-01-2024 ambulatory SAVANA A MAMMO Facility:[facility] Start: 08-01-2024 End: 08-01-2024 Patient encounter [...] Start: 07-27-2024 ambulatory SAVANA A MAMMO Facility: [facility] Start: 07-23-2024 End: 07-23-2024 ambulatory SAVANA A MAMMO Facility:[facility] Start: 07-23-2024 End: 07-23-2024 Patient encounter [...] 07-12-2024 Evaluation and management of inpatient SELF Facility:[facility] Start: 07-12-2024 End: 07-12-2024 Orders Only [...] 07-09-2024 Evaluation and management of inpatient SELF Facility: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 Start: 07-07-2024 Emergency department patient visit PROVIDER NOT IN SYSTEM Facility:[facility] Start: 07-06-2024 End: 07-06-2024 Telephone encounter Ryan Elizondo MD Work Phone: Ophthalmology Start: 07-05-2024 End: 07-07-2024 ambulatory RED GRESHAMNTIRE [facility] Start: 07-05-2024 End: 07-07-2024 Emergency department patient visit Wm Nunes DO Work Phone: [facility] PCU 3W Comment on above: Vision loss of right eye (Primary Dx); Acute intractable headache, unspecified headache type; Visual disturbance, subjective Start: 06-19-2024 End: 07-03-2024 ambulatory DEVIKA LEUNG Facility:[facility] Start: 06-19-2024 End: 07-03-2024 Subsequent hospital visit by physician Devika Leung DO Work Phone: [facility] MEDICAL TAYLORVISHAL PATIÑO Comment on above: [I63.9] - Cerebral i nfarction Start: 06-10-2024 End: 06-19-2024 Evaluation and management of inpatient TORSTEN SILVA Facility:[facility] Start: 05-22-2024 End: 05-22-2024 ambulatory [facility] Start: 05-21-2024 End: 05-21-2024 ambulatory [facility] Start: 05-21-2024 End: 05-21-2024 Anticoagulant drug monitoring [facility] Work Phone: [facility] Anticoagulation Management Service Comment on above: Atrial fibrillation, unspecified type (HCC); Acute venous embolism and thrombosis of deep vessels of proximal end of right lower extremity (HCC) Start: 05-14-2024 End: 05-14-2024 Subsequent hospital visit by physician Jared Evans MD Work Phone: [facility] Non-Invasive Cardiology Comment on above: Paroxysmal atrial fi brillation (HCC) Start: 05-14-2024 End: 05-14-2024 ambulatory [facility] Start: 05-09-2024 End: 05-09-2024 [facility] Start: 05-09-2024 End: 05-09-2024 Anticoagulant drug monitoring Patty Duggan [facility] Work Phone: [facility] Anticoagulation Management Service Comment on above: Atrial fibrillation, unspecified type (HCC); Acute venous embolism and thrombosis of deep vessels of proximal end of right lower extremity (HCC) Start: 05-01-2024 End: 05-01-2024 ambulatory [facility] Start: 05-01-2024 End: 05-01-2024 Anticoagulant drug monitoring Won Tipton RN [facility] Anticoagulation Management Service Comment on above: Atrial fibrillation, unspecified type (HCC); Acute venous embolism and thrombosis of deep vessels of proximal end of right lower extremity (HCC) Start: 04-27-2024 End: 04-27-2024 Refill Phyllis Aguilera RN Work Phone: [facility] Anticoagulation Management Service Comment on above: Deep vein thrombosis (DVT) of lower extremity, unspecified chronicity, unspecified laterality, unspecified vein (HCC); Atrial fibrillation, unspecified type (HCC); Acute venous embolism and thrombosis of deep vessels of proximal end of right lower extremity (HCC) Start: 04-25-2024 End: 04-25-2024 Office outpatient visit 15 minutes Henok Hernandez PA-C Work Phone: [facility] [place] Comment on above: Acute deep vein thro mbosis (DVT) of iliac vein of right lower extremity (HCC) (Primary Dx); PAD (peripheral artery disease) (HCC) Start: 04-25-2024 End: 04-25-2024 ambulatory [facility] Start: 04-23-2024 End: 04-23-2024 ambulatory [facility] Start: 04-20-2024 End: 07-20-2024 Transcribe Orders Jared Evans MD Work Phone: [facility] Central Scheduling Comment on above: Paroxysmal atrial fi brillation (HCC) (Primary Dx) Start: 04-19-2024 End: 04-19-2024 ambulatory [facility] Start: 04-19-2024 End: 04-19-2024 Anticoagulant drug monitoring Marybeth Rahman [facility] Anticoagulation Management Service Comment on above: Atrial fibrillation, unspecified type (HCC); Acute venous embolism and thrombosis of deep vessels of proximal end of right lower extremity (HCC) Start: 04-16-2024 End: 04-16-2024 ambulatory ANTHONY Ramy [facility] Start: 04-14-2024 End: 04-14-2024 Anticoagulant drug monitoring Ulices Orr PharmD [facility] Comment on above: Deep vein thrombosis (DVT) of lower extremity, unspecified chronicity, unspecified laterality, unspecified vein (HCC) (Primary Dx) Start: 04-03-2024 End: 04-13-2024 Evaluation and management of inpatient Winifred Cornell DO Work Phone: [facility] Medical Unit 4N Comment on above: Ischemic leg (Primar y Dx); Right leg pain; Peripheral arterial disease (HCC); Right leg weakness; Atrial fibrillation, unspecified type (HCC) Start: 07-27-2023 End: 07-27-2023 Office outpatient new 30 minutes Ming Weinberg MD Work Phone: [facility] Comment on above: 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) Start: 06-15-2023 End: 06-15-2023 Subsequent hospital visit by physician Jared Evans MD Work Phone: [facility] MRI Comment on above: Abnormal findings on diagnostic imaging of other specified body structures; Pain in left leg Start: 06-01-2023 Transcribe Orders Jared Evans MD Work Phone: [facility] Central Scheduling Comment on above: Abnormal findings on diagnostic imaging of other specified body structures (Primary Dx); Pain in left leg Start: 05-24-2023 End: 05-24-2023 Subsequent hospital visit by physician Jared Evans MD Work Phone: [facility] US Comment on above: Other specified soft tissue disorders Start: 05-23-2023 Transcribe Orders Jared Evans MD Work Phone: [facility] Central Scheduling Comment on above: Other specified soft tissue disorders (Primary Dx) Start: 03-08-2023 End: 03-08-2023 Subsequent hospital visit by physician Jared Evans MD Work Phone: [facility] CT Comment on above: Localized swelling, mass and lump, neck Start: 02-28-2023 Transcribe Orders Jared Evans MD Work Phone: [facility] Central Scheduling Comment on above: Localized swelling, mass and lump, neck (Primary Dx) Start: 02-22-2023 End: 02-22-2023 Subsequent hospital visit by physician Jared Evans MD Work Phone: [facility] US Comment on above: Localized swelling, mass and lump, neck Start: 02-17-2023 Transcribe Orders Jared Evans MD Work Phone: [facility] Central Scheduling Comment on above: Localized swelling, mass and lump, neck (Primary Dx) Start: 07-06-2022 Telephone encounter Inés Tubbs RN NOC Comment on above: Follow Up Phone Call (All Clear) Start: 06-21-2022 End: 06-21-2022 Evaluation and management of inpatient SMI ELIZABETH Facility:[facility] Start: 06-19-2022 ambulatory Tamara Olivares [employer] [place] [place] [address] CARD/HF/PD Start: 06-16-2022 End: 06-29-2022 Evaluation and management of inpatient BERNIE BIRD Facility:[facility] Start: 05-27-2022 Telephone encounter Jared pennington MD [...] 02-08-2020 Emergency department patient visit Maryuri King [facility] ED Comment on above: Felon of finger [...] Work Phone: Start: 09-03-2024 Urine culture Megan pastrana OLS Start: 08-22-2024 Follow-up visit [facility] Start: 08-16-2024 Glucose quantitative blood xcpt reagent [...] 12 lds trcg only w/o i&r Wm Alexandrekola DO Work Phone: Start: 07-05-2024 Cerebral perfusion a nalys ct w/blood flow&volume Wm Aracelirakola DO Work Phone: Start: 07-05-2024 Ct angiography head w/contrast/noncontrast Wm Nunes DO Work Phone: Start: 07-05-2024 End: 07-05-2024 [...] metabolic pane l calcium total Devika A [employer] DO Work Phone: Start: 06-10-2024 Thyrotropin [Units/v [...] Work Phone: Start: 04-25-2024 Follow-up visit [facility] Start: 04-19-2024 Prothrombin time Histor horacio Haywood [...] on above: Performed By: #### L [id number] ####Health Information Specialist: VELMA VALADEZ ([phone])[facility] ([facility])[address] [place] [address] Start: 04-06-2024 Blood typing serologic abo Kristyn [...] 04-04-2024 Thromboplastin time partial plasma/whole blood Pratibha Ambrociokayleendieterevonstas DO Work Phone: Start: 04-03-2024 Thromboplastin time partial plasma/whole blood Pratibha Ambrociofigueroarobson DO Work Phone: Start: 04-03-2024 Cta abdl aorta&bi il iofem w/contrast&postp Bernie Cutler FILLER SHREDDER - EDUCATION PROGRAM COORDINATOR Work Phone: Start: 04-03-2024 Ct head/brain w/o co ntrast material Bernie Cutler FILLER SHREDDER - EDUCATION PROGRAM COORDINATOR Work Phone: Start: 04-03-2024 Comprehensive metabo lic panel Bernie Cutler FILLER SHREDDER - EDUCATION PROGRAM COORDINATOR Work Phone: Start: 04-03-2024 Ecg routine ecg w/le ast 12 lds trcg only w/o i&r Bernie Cutler FILLER SHREDDER - EDUCATION PROGRAM COORDINATOR Work Phone: Start: 06-15-2023 Mri lower extrem oth /thn jt w/o & w/contr matr Jraed Evans MD Work Phone: Start: 05-24-2023 Dup-scan xtr veins unilateral/limited study Jared Evans MD Work Phone: Start: 06-21-2022 Antibody screen BERNIE BIRD Comment on above: Order Comment: Speci men Type: BLOOD SPECIMEN Ordering Facility: [facility] Address: [address] [place], [place] [id number] Performed By: #### T SCR #### [facility] CLIA [id number] 1 [place] [address] [place] Start: 03-07-2020 OPERATIVE REPORT 3m Sca nning Start: 02-08-2020 INCISION AND DRAINAGE R mona Mora Work Phone: Plan of Treatment Date Care Activity Detail Author Start: 02-15-2029 DTaP/Tdap/Td vaccine (2 - Td) DTaP/Tdap/Td vaccine (2 - Td) [facility] [place] Start: 02-15-2029 DTaP/Tdap/Td Vaccines (2 - Td or Tdap) DTaP/Tdap/Td Vaccines (2 - Td or Tdap) [facility] Start: 02-15-2029 Urine microalbumin profile DTaP,Tdap,Td Vaccine (2 - Td or Tdap) [facility] Start: 08-05-2027 Diabetes Screening Diabetes Screening [facility] Start: 07-07-2027 Diabetes Screening Diabetes Screening [facility] Start: 07-06-2027 Diabetes Screening Diabetes Screening [facility] Start: 06-21-2027 Diabetes Screening Diabetes Screening [facility] Start: 08-16-2025 End: 01-23-2026 OCT MACULA CIRRUS OD (RIGHT EYE) OCT MACULA CIRRUS OD (RIGHT EYE) [facility] Imaging Routine Postoperative eye state 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, right eye Subluxation of right lens Expected: 08/16/2025, Expires: 01/23/2026 [facility] Work Phone: Comment on above: Expected: 08/16/2025, Expires: Start: 08-05-2025 Diabetes: Estimated Glomerular Filtration Rate for Kidney Health Diabetes: Estimated Glomerular Filtration Rate for Kidney Health [facility] Start: 08-04-2025 Diabetes: Estimated Glomerular Filtration Rate for Kidney Health Diabetes: Estimated Glomerular Filtration Rate for Kidney Health [facility] Start: 07-31-2025 End: 01-07-2026 Right eye Photo documentation FUNDUS PHOTOS OD (RIGHT EYE) [facility] Imaging Routine Postoperative eye state 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, right eye Subluxation of right lens Expected: 07/31/2025, Expires: 01/07/2026 [facility] Work Phone: Comment on above: Expected: 07/31/2025, Expires: Start: 07-07-2025 Diabetes: Estimated Glomerular Filtration Rate for Kidney Health Diabetes: Estimated Glomerular Filtration Rate for Kidney Health [facility] Start: 06-24-2025 DIABETES SCREEN DIABETES SCREEN [facility] Start: 06-10-2025 Thyroid stimulating hormone measurement TSH Level [facility] Start: 05-18-2025 DIABETES SCREEN DIABETES SCREEN [facility] Start: 03-18-2025 Influenza vaccination [facility] Start: 03-15-2025 End: 03-15-2025 Patient encounter procedure 03/15/2025 11:15 AM EDT Office Visit [facility] [place] [address] [place] [phone] Andre Patel MD [address] [place] [address] [facility] Start: 01-02-2025 End: 01-02-2025 Patient encounter procedure 01/02/2025 9:45 AM EDT Office Visit [facility] [address] [place], [place] [phone] Savana Lopez MD [address] [place] [address] *3 M, DFE Ophthalmology Comment on above: *3 M, DFE Start: 12-24-2024 End: 12-24-2024 Patient encounter procedure 12/24/2024 2:30 PM EDT Office Visit [facility] [place] [address] [place] [phone] Kristyn Blankenship MD [address] [place], [place] [phone] [facility] [place] Start: 12-05-2024 End: 12-05-2024 Patient encounter procedure 12/05/2024 10:00 AM EDT Office Visit [facility] [place] [address] [place] [address] Kristyn Blankenship MD [address] [place] [address] [facility] [place] Start: 11-22-2024 End: 11-22-2024 Admission to same day surgery center 11/22/2024 9:30 AM EDT - 11/22/2024 11:30 AM EDT Surgery [facility] [address] [place] [phone] Kristyn Blankenship MD [address] [place] [phone] AORTOILIAC ANGIOGRAPHY, RIGHT LOWER EXTREMITY ANGIOGRAPHY WITH RUNOFF, POSSIBLE SUPERFICIAL FEMORAL ARTERY/POPLITEAL/TIBIAL ANGIOPLASTY/STENTING [13554 (CPT )] [facility] Comment on above: AORTOILIAC ANGIOGRAPHY, RIGHT LOWER EXTR EMITY ANGIOGRAPHY WITH RUNOFF, POSSIBLE SUPERFICIAL FEMORAL ARTERY/POPLITEAL/TIBIAL ANGIOPLASTY/STENTING [40345 (CPT )] Start: 11-22-2024 End: 11-22-2024 Angiography extremity unilateral rs&i ANGIOGRAM, EXTREMITY Skin ulcer of right great toe (HCC) Critical limb ischemia of right lower extremity (HCC) 11/22/2024 9:30 AM EDT [facility] Operating Room Start: 11-22-2024 Subsequent hospital visit by physician 11/22/2024 9:30 AM EDT Hospital Encounter [facility] [address] [place] [phone] Kristyn Blankenship MD [address] [place] [phone] [facility] Start: 11-20-2024 Subsequent hospital visit by physician 11/20/2024 Hospital Encounter [facility] [address] [place] [address] Kristyn Blankenship MD [address] [place] [id number] [facility] Start: 11-13-2024 End: 11-13-2025 Basic metabolic 1998 panel - Serum or Plasma Basic metabolic panel Lab Routine Pre-op evaluation Expected: 11/13/2024 (Approximate), Expires: 11/13/2025 [facility] Comment on above: Expected: 11/13/2024 (Approximate), Expi res: 11/13/2025 Start: 11-13-2024 End: 11-13-2025 CBC W Auto Differential panel - Blood CBC auto differential Lab Routine Pre-op evaluation Expected: 11/13/2024 (Approximate), Expires: 11/13/2025 [facility] Work Phone: Comment on above: Expected: 11/13/2024 (Approximate), Expi res: 11/13/2025 Start: 10-01-2024 End: 10-01-2024 Patient encounter procedure 10/01/2024 10:30 AM EDT Office Visit [facility] [address] [address] Savana Lopez MD [address] [place] [address] 26 Day F/U ~ DFE OD bscan OD . Ophthalmology Comment on above: 26 Day F/U ~ DFE OD bscan OD . Start: 08-22-2024 End: 08-22-2024 Patient encounter procedure 08/22/2024 10:30 AM EST Office Visit [facility] [place] [address] [place] [phone] Henok Lantigua PA-C [address] [place] [phone] [facility] [place] Start: 08-15-2024 End: 08-15-2024 Patient encounter procedure 08/15/2024 9:45 AM EST Office Visit [facility] [address] [place] [address] Savana Lopez MD [address] [place] [address] *1 month post op Ophthalmology Comment on above: *1 month post op Start: 08-06-2024 End: 08-06-2024 Patient encounter procedure 08/06/2024 11:00 AM EST Office Visit [facility] [place] [address] [place] [phone] Henok Lantigua PA-C [address] [place] [phone] [facility] [place] Start: 08-01-2024 End: 08-01-2024 Patient encounter procedure Ophthalmology Comment on above: *1 week post op Start: 07-31-2024 End: 07-31-2024 Patient encounter procedure [facility] Start: 07-27-2024 End: 07-27-2024 Admission to same day surgery center 07/27/2024 10:50 AM EST - 07/27/2024 12:40 PM EST Surgery Ophthalmology [address] [address] Savana Lopez MD [address] [place] [address] VITRECTOMY 25G [facility] PARS PLANA APPROACH W/ REMOVAL OF PRERETINAL CELLULAR MEMBRANE Ophthalmology Comment on above: VITRECTOMY 25G [facility] PARS PLANA APPROACH W/ REMOVAL OF PRERETINAL CELLULAR MEMBRANE Start: 07-27-2024 End: 07-27-2024 Aspiration/release vitreous subretinal/choroidal RELEASE OF VITREOUS, CHOROIDAL FLUID, PARS PLANA APPROACH Hemorrhagic choroidal detachment of right eye 07/27/2024 10:50 AM EST [facility] Start: 07-27-2024 Subsequent hospital visit by physician 07/27/2024 10:50 AM EST Hospital Encounter Ophthalmology [address] [address] Savana Lopez MD [address] [place] [address] 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] Ophthalmology Comment on above: Hemorrhagic choroidal detachment of righ t eye [H31.411] Start: 07-27-2024 End: 07-27-2024 Vitrectomy pars plana remove preretinal membrane VITRECTOMY 25G [facility] PARS PLANA APPROACH W/ REMOVAL OF PRERETINAL CELLULAR MEMBRANE Hemorrhagic choroidal detachment of right eye 07/27/2024 10:50 AM EST [facility] Start: 07-23-2024 End: 07-23-2024 Patient encounter procedure 07/23/2024 10:45 AM EST Office Visit [facility] [address] [address] Savana Lopez MD [address] [place] [address] *1 W, DFE OD/BSCAN OD/OPTOS OD Ophthalmology Comment on above: *1 W, DFE OD/BSCAN OD/OPTOS OD Start: 07-18-2024 Advance Directive Discussion Advance Directive Discussion [facility] Start: 07-18-2024 Medicare Advantage Annual Wellness Visit Medicare Advantage Annual Wellness Visit [facility] Start: 07-16-2024 End: 07-16-2024 Patient encounter procedure Ophthalmology Comment on above: Please schedule this patient with Dr. Jose Angel grey Tuesday07/16/24. Ok to over book per Dr. Lopez *NEW, HEMORRHAGIC CH OROIDALS/MONOCULAR, DFE OD/g SCAN OD ok per DM Start: 07-13-2024 End: 07-13-2024 Aspiration/release vitreous subretinal/choroidal ASPIRATION VITREOUS, CHOROIDAL FLUID, PARS PLANA APPROACH Hemorrhagic choroidal detachment of right eye 07/13/2024 2:04 PM EST [facility] Start: 07-13-2024 End: 07-13-2024 Evaluation and management of inpatient 07/13/2024 2:04 PM EST - 07/13/2024 3:24 PM EST Surgery Ophthalmology [address] [address] Savana Lopez MD [address] [place] [address] ASPIRATION VITREOUS, CHOROIDAL FLUID, PARS PLANA APPROACH Ophthalmology Comment on above: ASPIRATION VITREOUS, CHOROIDAL FLUID, PA RS PLANA APPROACH Start: 06-04-2024 End: 05-21-2025 POCT Prothrombin Time INR ([facility]) POCT Prothrombin Time INR ([facility]) Lab Routine Atrial fibrillation, unspecified type (HCC) Acute venous embolism and thrombosis of deep vessels of proximal end of right lower extremity (HCC) Expected: 06/04/2024, Expires: 05/21/2025 [facility] Work Phone: Comment on above: Expected: 06/04/2024, Expires: Start: 06-04-2024 End: 06-04-2024 Anticoagulant drug monitoring 06/04/2024 1:15 AM EST Anticoagulation - Warfarin Visit [facility] Antico[facility] Management Service [address] [place] [phone] [facility] Start: 05-22-2024 End: 05-22-2024 Patient encounter procedure 05/22/2024 3:00 PM EST Office Visit [facility] Cardiology [place] [address] [facility] [address] [place] [phone] Hermila Padilla MD [address] [facility] [address] [place], [place] [phone] [facility] - [place] Start: 05-22-2024 End: 05-22-2024 Anticoagulant drug monitoring 05/22/2024 12:45 AM EST Anticoagulation - Warfarin Visit [facility] Anticoagulation Management Service [address] [place] [address] [facility]tico[facility] Management [facility] Start: 05-14-2024 End: 05-14-2024 Patient encounter procedure 05/14/2024 2:00 PM EDT Appointment [facility] Non-Invasive Cardiology [address] [place] [phone] [facility] Non-Invasive Cardiology Start: 05-08-2024 End: 05-01-2025 POCT Prothrombin Time INR ([facility]) POCT Prothrombin Time INR ([facility]) Lab Routine Atrial fibrillation, unspecified type (HCC) Acute venous embolism and thrombosis of deep vessels of proximal end of right lower extremity (HCC) Expected: 05/08/2024 (Approximate), Expires: 05/01/2025 [facility] Work Phone: Comment on above: Expected: 05/08/2024 (Approximate), Expi res: 05/01/2025 Start: 05-08-2024 End: 05-08-2024 Anticoagulant drug monitoring 05/08/2024 1:30 AM EDT Anticoagulation - Other Visit [facility] Anticoagulation Management Service [address] [place] [phone] [facility] Start: 05-01-2024 End: 05-01-2024 Anticoagulant drug monitoring 05/01/2024 Anticoagulation - Warfarin Visit [facility] Anticoagulation Management Service [address] [place] [phone] [facility] Start: 04-23-2024 End: 04-19-2025 POCT Prothrombin Time INR ([facility]) POCT Prothrombin Time INR ([facility]) Lab Routine Atrial fibrillation, unspecified type (HCC) Acute venous embolism and thrombosis of deep vessels of proximal end of right lower extremity (HCC) Expected: 04/23/2024 (Approximate), Expires: 04/19/2025 [facility] [employer] Work Phone: Comment on above: Expected: 04/23/2024 (Approximate), Expi res: 04/19/2025 Start: 04-23-2024 End: 04-23-2024 Patient encounter procedure 04/23/2024 9:15 AM EDT Office Visit [facility] [place] [address] [place] [phone] Henok Hernandez PA-C [address] [place], [place] [phone] [facility] [place] Start: 04-23-2024 End: 04-23-2024 Anticoagulant drug monitoring 04/23/2024 1:15 AM EDT Anticoagulation - Warfarin Visit [facility] Antico[facility] Management Service [address] [place] [phone] [facility] Start: 04-19-2024 End: 04-19-2024 Anticoagulant drug monitoring 04/19/2024 1:00 AM EDT Anticoagulation - Warfarin Visit [facility]tico[facility] Management Service [address] [place] [phone] [facility] Start: 04-16-2024 End: 04-16-2025 POCT Prothrombin Time INR ([facility]) POCT Prothrombin Time INR ([facility]) Lab Routine Deep vein thrombosis (DVT) of lower extremity, unspecified chronicity, unspecified laterality, unspecified vein (HCC) Expected: 04/16/2024, Expires: 04/16/2025 [facility] Work Phone: Comment on above: Expected: 04/16/2024, Expires: Start: 03-18-2024 Covid-19 Vaccine () Covid-19 Vaccine () [facility] Start: 03-18-2024 Influenza vaccination Influenza Vaccine (#1) [facility] Start: 07-18-2023 Advance Directive Discussion Advance Directive Discussion [facility] Start: 07-18-2023 Medicare Advantage Annual Wellness Visit Medicare [facility] Annual Wellness Visit [facility] Start: 03-18-2023 Influenza vaccination Influenza Vaccine (#1) [facility] Start: 03-18-2022 Influenza vaccination INFLUENZA (#1) [facility] Start: 07-18-2021 ADVANCE DIRECTIVE DISCUSSION ADVANCE DIRECTIVE DISCUSSION [facility] Start: 07-18-2021 DEPRESSION ASSESSMENT DEPRESSION ASSESSMENT [facility] Start: 03-18-2020 Influenza vaccination Flu vaccine (#1) [place], [place] Start: 03-13-2020 End: 03-13-2020 Office Visit 03/13/2020 Office Visit Orthopedic Surgery Jayla Mcmahan MD 1 [facility] [address] [place] [address] [phone] [facility] [place] Start: 03-07-2020 Hospital Encounter 03/07/2020 Hospital Encounter IP Unit Jayla Mcmhaan MD 1 [facility] [address] [place], [place] [id number] MARIO Serrato Dept Start: 03-06-2020 Annual Wellness Visit (AWV) Annual Wellness Visit (AWV) [place] Start: 04-12-2019 Pneumococcal Vaccine: 50+ Years (2 of 2 - PPSV23) Pneumococcal Vaccine: 50+ Years (2 of 2 - PPSV23) [facility] Start: 04-12-2019 Pneumococcal Vaccine: 65+ Years (2 - PPSV23 if available, else PCV20) Pneumococcal Vaccine: 65+ Years (2 - PPSV23 if available, else PCV20) [facility] Start: 04-12-2019 Pneumococcal Vaccine: 65+ Years (2 - PPSV23 or PCV20) Pneumococcal Vaccine: 65+ Years (2 - PPSV23 or PCV20) [facility] Start: 04-12-2019 Pneumococcal Vaccine: 65+ Years (2 of 2 - PPSV23 or PCV20) Pneumococcal Vaccine: 65+ Years (2 of 2 - PPSV23 or PCV20) [facility] Start: 02-13-2016 DIABETES SCREEN DIABETES SCREEN [facility] Start: 09-24-2014 RSV Immunization for Adults (1 - 1-dose 75+ series) RSV Immunization for Adults (1 - 1-dose 75+ series) [facility] Start: 04-23-2010 DIABETES SCREEN DIABETES SCREEN [facility] Start: 09-24-2004 BONE DENSITY BONE DENSITY [facility] Start: 09-24-2004 Pneumococcal 65+ years Vaccine (2 of 2 - PPSV23) Pneumococcal 65+ years Vaccine (2 of 2 - PPSV23) [place] Start: 09-24-2004 PNEUMOCOCCAL: 65+ (1 - PCV) PNEUMOCOCCAL: 65+ (1 - PCV) [facility] Start: 09-24-2004 Screening for osteoporosis Bone Density Screening [facility] Start: 1999 RSV Immunization aged 60 or older (1 - 1-dose 60+ series) RSV Immunization aged 60 or older (1 - 1-dose 60+ series) [facility] Start: 09-24-1994 Screening for osteoporosis DEXA (modify frequency per FRAX score) [place] Start: 09-24-1989 Shingles Vaccine (1 of 2) Shingles Vaccine (1 of 2) [place] Start: 09-24-1989 SHINGRIX VACCINE (1 of 2) SHINGRIX VACCINE (1 of 2) [facility] Start: 09-24-1989 Zoster Vaccines (1 of 2) Zoster Vaccines (1 of 2) [facility] Start: 09-24-1958 Urine microalbumin profile DTAP,TDAP,TD (1 - Tdap) [facility] Start: 09-24-1958 Zoster Vaccines (1 of 2) Zoster Vaccines (1 of 2) [facility] Start: 09-24-1957 Anxiety Screening Anxiety Screening [facility] Start: 09-24-1957 Depression Screening Depression Screening [facility] Start: 09-24-1957 Diabetes: Urine Albumin-Creatinine Ratio for Kidney Health Diabetes: Urine Albumin-Creatinine Ratio for Kidney Health [facility] Start: 09-24-1957 SPIROMETRY SPIROMETRY [facility] Start: 1951 Depression Monitoring Depression Monitoring [facility] Start: 1951 Depresssion Monitoring Depresssion Monitoring [facility] Start: 09-24-1945 PNEUMOCOCCAL: 65+ (1 - PCV) PNEUMOCOCCAL: 65+ (1 - PCV) [facility] Start: 09-24-1944 COVID-19 Vaccine (#1) COVID-19 Vaccine (#1) [facility] Start: 03-27-1940 COVID-19 VACCINE (#1) COVID-19 VACCINE (#1) [facility] Start: 1940 [facility] [place] Start: 1940 Lipid panel Lipid Panel [facility] Start: 1940 Medicare Advantage Annual Wellness Visit (AWV) Medicare Advantage Annual Wellness Visit (AWV) [facility] Start: 1940 Potassium monitoring Potassium monitoring [facility] [place] [place] Start: 1940 Screening for osteoporosis Bone Density Scan [facility] Start: 1940 Thyroid stimulating hormone measurement TSH Level [facility] Angiography extremit y unilateral rs&i AORTOGRAM, WITH SERIALOGRAPHY Critical limb ischemia of right lower extremity (HCC) [facility] Operating Room Aortography abdomina l serialography rs&i AORTOGRAM, WITH SERIALOGRAPHY Critical limb ischemia of right lower extremity (HCC) [facility] Operating Room BSCAN OD (RIGHT EYE) BSCAN OD (R IGHT EYE) OPHT Imaging Routine Hemorrhagic choroidal detachment of right eye 07/09/2024 9:09 AM EST [facility] Work Phone: End: 01-03-2026 BSCAN OD (RIGHT EYE) BSCAN OD (RIGHT EYE) OPHT Imaging Routine Hemorrhagic choroidal detachment of right eye Dislocation of intraocular lens, initial encounter 1 Occurrences starting 07/12/2024 until 01/03/2026 [facility] Work Phone: Comment on above: 1 Occurrences starting 07/12/2024 until 01/03/2026 End: 01-07-2026 BSCAN OD (RIGHT EYE) BSCAN OD (RIGHT EYE) OPHT Imaging Routine Postoperative eye state 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, right eye Subluxation of right lens 1 Occurrences starting 07/16/2024 until 01/07/2026 [facility] Comment on above: 1 Occurrences starting 07/16/2024 until 01/07/2026 End: 02-27-2026 BSCAN OD (RIGHT EYE) BSCAN OD (RIGHT EYE) OPHT Imaging Routine Postoperative eye state 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, right eye Subluxation of right lens 1 Occurrences starting 09/05/2024 until 02/27/2026 [facility] Work Phone: Comment on above: 1 Occurrences starting 09/05/2024 until 02/27/2026 Camera fundoscopy FUNDUS PHOTOS OU (BOTH EYES) OPHT Imaging Routine Hemorrhagic choroidal detachment of right eye 07/09/2024 8:35 AM EST [facility] End: 03-08-2023 CT Neck W contrast IV [facility] Work Phone: Comment on above: Once for 1 Occurrences starting 03/08/20 until 03/08/2023 Incision/Drainage Incision/Drain age Procedures Routine 02/08/2020 7:17 PM EDT [facility] OUTSIDE PROCEDURE SCAN OUTSIDE P ROCEDURE SCAN Procedures Ordered: 02/21/2023 [facility] Comment on above: Ordered: 02/21/2023 OUTSIDE PROCEDURE SCAN OUTSIDE P ROCEDURE SCAN Procedures Ordered: 03/07/2023 [facility] Comment on above: Ordered: 03/07/2023 OUTSIDE PROCEDURE SCAN OUTSIDE P ROCEDURE SCAN Procedures Ordered: 05/24/2023 [facility] Comment on above: Ordered: 05/24/2023 OUTSIDE PROCEDURE SCAN OUTSIDE P ROCEDURE SCAN Procedures Ordered: 06/14/2023 [facility] Comment on above: Ordered: 06/14/2023 Oxygen therapy [Minimum Data Set] Initiate Oxygen Therapy Protocol Respiratory Care Routine Daily until discontinued starting 03/07/2020 [facility] Comment on above: Daily until discontinued starting 2019 End: 02-22-2023 US Head and neck soft tissue [facility] Work Phone: Comment on above: Once for 1 Occurrences starting 02/23/20 until 02/22/2023 End: 03-06-2020 XR FINGER RIGHT (MIN 2 VIEWS) XR FINGER RIGHT (MIN 2 VIEWS) Imaging Routine Once for 1 Occurrences starting 03/06/2020 until 03/06/2020 [facility] Comment on above: Once for 1 Occurrences starting 03/06/20 until 03/06/2020 XR FINGER RIGHT (MIN 2 VIEWS) XR FINGER RIGHT (MIN 2 VIEWS) Imaging Routine 03/06/2020 10:20 AM EDT [facility] Immunizations Immunization Date Immunization Notes Care Provider Fa [facility] 05-19-2021 Influenza, High-dose Seasonal, Quadrivalent, Preservative Free Ming Weinberg MD Work Phone: [facility] 05-19-2021 influenza virus vaccine, unspecified formulation Jared Evans MD Work Phone: [facility] 02-15-2019 pneumococcal conjuga te vaccine, 13 valent Ming Weinberg MD Work Phone: [facility] 02-15-2019 tetanus toxoid, redu larissa diphtheria toxoid, and acellular pertussis vaccine, adsorbed Ming Weinberg MD Work Phone: [facility] 06-29-2013 influenza, high dose seasonal, preservative-free Ming Weinberg MD Work Phone: [facility] NEGATED: Highlighted row has not occurred!04-05-2024 Seasonal trivalent influenza vaccine, adjuvanted, preservative free Winifred Cornell DO Work Phone: [facility] Comment on above: Deferred: Patient Re fused Payers Date Payer Category Payer Self-pay 2023 Private Health Insurance HU[employer]NA HUMANA MEDICARE SUPPLEMENT [id number] 2023-2023 [address] [address] [place] [address] Commercial [id number] 2017 Medicare [id number] 2017 Medicare (Managed Care) JONAS ESCOBAR [id number] 2017 Medicare HMO HUMANA MEDICARE [id number] 2017 Medicare [id number]. [id number] 1939 Unknown [id number] 2.16840.1.334015.3.579. 2.594 Unknown [id number]. 1.13.159. 2.7.3.827065.315 Unknown [id number] Unknown [id number] 2.16840.1.378432.3.579. 2.462 Unknown [id number] 2.840.1.772269.3.579. 2.462 Unknown [id number] 2.16840.1.883954.3.579. 2.462 Unknown [id number] 2.16840.1.810110.3.579. 2.462 Unknown [id number] 2.16840.1.183024.3.579. 2.462 Unknown [id number] 2.16840.1.777319.3.579. 2.462 Unknown [id number] 2.16840.1.185472.3.579. 2.462 Unknown [id number] 2.16.840.1.278349.3.579. 2.462 Unknown [id number] 2.16.840.1.819480.3.579. 2.462 Unknown [id number] 2.16.840.1.364144.3.579. 2.462 Unknown [id number] 2.16.840.1.712960.3.579. 2.462 Unknown [id number] 2.16.840.1.706602.3.579. 2.462 Unknown [id number] 2.16840.1.859898.3.579. 2.462 Unknown [id number] 2.840.1.559136.3.579. 2.462 Unknown [id number] 2.840.1.138693.3.579. 2.462 Unknown [id number] 2.840.1.190826.3.579. 2.462 Unknown [id number] 2.840.1.619920.3.579. 2.462 Unknown [id number] 2.840.1.764397.3.579. 2.462 Unknown [id number] 2.16840.1.245321.3.579. 2.462 Unknown [id number] 2.16840.1.576912.3.579. 2.462 Unknown [id number] 2.840.1.172901.3.579. 2.462 Unknown [id number] 2.16840.1.936899.3.579. 2.462 Unknown [id number] 2.16.840.1.456501.3.579. 2.462 Unknown [id number] 2.16.840.1.974522.3.579. 2.462 Unknown [id number] 2.16.840.1.176143.3.579. 2.462 Unknown [id number] 2.840.1.585004.3.579. 2.462 Unknown [id number] 2.16.840.1.828417.3.579. 2.462 Unknown [id number] 2.16.840.1.568424.3.579. 2.462 Unknown [id number] 2.16.840.1.179839.3.579. 2.462 Social History Date Type Detail Facility Start: 02-08-[address] [facility] Current some day smoker [place] Start: 02-08-2020 End: 04-20-2024 Alcohol intake Current drinker of alcohol (finding) [place] Start: 02-08-2020 End: 05-22-2024 Alcohol Comment occ [place], [place] Start: 1940 Sex Assigned At Not on file [place] Start: 05-04-2022 End: 03-08-2023 Exposure to SARS-CoV-2 (event) Not sure [place] Start: 03-06-2020 End: 04-25-2024 Tobacco smoking status NHIS Former [place] Start: 03-06-2020 End: 04-25-2024 Tobacco use and exposure Never used [place], [place] Tobacco smoking stat [facility] Tobacco smoking consumption unknown [facility] Start: 05-17-2022 End: 04-04-2024 Tobacco smoking status ARIS Smokes tobacco daily [facility] History of tobacco use Cigarette Smoker [facility] Start: 05-17-2022 End: 08-11-2024 Cigarettes smoked current (pack per day) - Reported 0.5 [facility] Start: 05-18-2022 History SDOH Financial 5 [facility] Start: 05-18-2022 History SDOH Food Worry 1 [facility] Start: 05-18-2022 History SDOH Transpo rt Med 2 [facility] Start: 07-05-2022 End: 03-15-2025 Alcohol intake Ex-drinker (finding) [facility] History of tobacco use Current smoker [place] Start: 07-27-2023 End: 08-11-2024 Gender identity Not on file [facility] [employer] How often do you nee d to have someone help you when you read instructions, pamphlets, or other written material from your doctor or pharmacy [SILS] Never [facility] Has the electric, [employer] [place] s, oil, or water company threatened to shut off services in your home in past 12Mo No [facility] Are you now , , , , never or living with a partner? [facility] How often to you hav e a drink containing alcohol? Monthly or less [facility] How often do you hav e 6 or more drinks on 1 occasion? Never [facility] How hard is it for y ou to pay for the very basics like food, housing, medical care, and heating Not very hard [facility] Do you feel stress - tense, restless, nervous, or anxious, or unable to sleep at night because your mind is troubled all the time - these days [OSQ] Not at all [facility] (I/We) worried wheth er (my/our) food would run out before (I/we) got money to buy more. Never true [facility] Start: 02-15-2022 End: 10-25-2024 Sex Female (finding) [facility] Start: 1940 Sex assigned at Female S [facility] Start: 08-03-2024 Gender identity Identifies as female gender (finding) [facility] Start: 08-03-2024 Sexual orientation Heterosexual (fin mario) [facility] NEGATED: Highlighted rowStart: NINF History of tobacco use Passive smoker [facility] Medical Equipment Procedure Code Equipment Code Equipment Origin al Text Equipment Identifier Dates Gas Ispan [employer] Intraocular Vision System [id number] - [id number] Start: 07-27-2024 Stent Vasc 6x40x 125 6f [employer]il[employer] - Sna - [id number] Start: 11-22-2024 Stent Oliva 5x40x1 25 6f [employer]il[employer] - Sna - [id number] Start: 11-22-2024 Functional Status Date Assessment Result Facility 07-18-2024 Are you deaf, or do you have serious difficulty hearing No 07/18/2024 12:17 PM Jaci Umana RN No [facility] 07-18-2024 Are you blind, or do you have serious difficulty seeing, even when wearing glasses Yes 07/18/2024 12:17 PM Jaci Umana, RADHA Yes [facility] 07-18-2024 Do you have serious difficulty walking or climbing stairs Yes 07/18/2024 12:17 PM Jaci Umana RN Yes [facility] 07-18-2024 Do you have difficul ty dressing or bathing Yes 07/18/2024 12:17 PM Jaci Umana, RADHA Yes [facility] 07-18-2024 Because of a physica l, mental, or emotional condition, do you have difficulty doing errands alone such as visiting a physician's office or shopping Yes 07/18/2024 12:17 PM Jaci Umana RN Yes [facility] Mental Status Date Assessment Result Facility 07-18-2024 Because of a physica l, mental, or emotional condition, do you have serious difficulty concentrating, remembering, or making decisions No 07/18/2024 12:17 PM Jaci Umana RN No [facility] Clinical Notes 05-14-2022 to 03-15-2025 Andre Berry MD - 03/15/2025 11:15 AM Savana Triana MD - 01/02/2025 9:45 AM Cindy Blankenship MD - 12/24/2024 2:30 PM Cindy Blankenship MD - 12/05/2024 10:00 AM EDTDischarge Instructions Note Date & Type Note Facility 03-15-2025 History of Present illness Narrative Images from the original note were not included. Andre Patel MD [facility] Hematology/Oncology - [facility] [address] [address] [facility] [address] [facility] [address] Dept: [phone] Dept PROBLEM LIST: 1. Recurrent DVT: Initially [...] completing clinical documentation as well as with [id number] patient care, performing a medically appropriate examination, counseling / educating the patient/family/caregiver, and ordering medications, tests, or procedures. HPI: Mel Pop is a 84 y.o. female who presents here today with VTE Pt w/ history of severe atherosclerosis, COPD, former smoker, diverticulosis, afib, hypertension, and GERD who presented to [facility] for right lower extremity pain. Reports [...] vessels. Vascular surgery recommended transfer to [facility]. PVR and BLE US results pending [...] to Coumadin. Here today w/ Lavelle (social work professor from [facility]) as well as Fidel STAPLETON Pt reports arterial stent placed in RLE. [...] (06/20/2024) Received from [facility] Overall Financial Resource Strain (CARDIA) Difficulty [...] min Stress: Patient Unable To Answer (08/03/2024) [employer] [place] [employer] - Occupational Stress Questionnaire Feeling of Stress : Patient unable to answer Social Connections: Unknown (08/03/2024) Social Connection and Isolation Panel [NHANES] Frequency of Communication with Friends and Family: Patient unable to answer Frequency of Social Gatherings with Friends and Family: Patient unable to answer Attends Tenriism Services: Patient unable to answer Active Member of Clubs or Organizations: Patient unable to answer Attends Club or Organization Meetings: Never Marital Status: Patient unable to answer Recent Concern: Social Connections - Moderately Isolated (06/20/2024) Received from [facility] Social Connection and Isolation Panel [NHANES] Frequency of Communication with Friends and Family: More than three times a week Frequency of Social Gatherings with Friends and Family: Once a week Attends Tenriism Services: More than 4 times per year [...] recognition and 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 [1] Past Medical History: Diagnosis Date Arrhythmia PAF Asthma Chronic kidney disease COPD (chronic obstructive pulmonary disease) ([facility]) DVT (deep venous thrombosis) ([facility]) Essential hypertension 03/07/2020 GERD (gastroesophageal reflux disease) Hiatal hernia IBS (irritable bowel syndrome) Pure hypercholesterolemia 03/07/2020 PVD (peripheral vascular disease) ([facility]) Stroke ([facility]) [2] Past Surgical History: Procedure Laterality Date ANKLE SURGERY ARM SURGERY (HISTORICAL) Right COLONOSCOPY ESOPHAGEAL DILATION EYE SURGERY Right 07/05/2024 [facility] EYE SURGERY Right 06/2024 x2, [facility] FINGER AMPUTATION Right 03/07/2020 right index finger [...] Percocet [Oxycodone-Acetaminophen] Itching documented in this encounter [facility] 01-02-2025 History of Present illness Narrative Can [...] to HTN (SBP 199/99 at presentation to [place]) and anticoagulation that led to angle closure [...] its relevant components. documented in this encounter [facility] 01-02-2025 Note HNO ID: [id number] Author: SAVANA LOPEZ MD Service: ? 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 HYSTERECTOMY ORTHOPEDIC SURGERY THROMBECTOMY Right 04/06/2024 RLE mechanical thrombectomy (Krzysztof) VASCULAR SURGERY Right 11/22/2024 AORTOILIAC ANGIOGRAPHY, RIGHT LOWER EXTREMITY ANGIOGRAPHY WITH RUNOFF, SUPERFICIAL FEMORAL ARTERY, POPLITEAL,TIBIAL ANGIOPLASTY and STENTING (Krzysztof) VASCULAR SURGERY Left 11/22/2024 Left femoral angiography (Krzysztof) documented in this encounter [facility] 12-05-2024 History of Present illness Narrative 12/05/2024 Mel Solizerd 1940 Chief Complaint Patient presents with Follow-up [...] right foot, limited to breakdown of skin ([facility]) - Primary Relevant Orders Vascular US lower extremity arterial duplex right with MICHELLE PAD (peripheral artery disease) ([facility]) Relevant Orders Vascular US lower extremity arterial [...] I reviewed the images with the patient's [id number] who was present for today's visit as the patient is blind. Follow up after arterial duplex to discuss the results. 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 Groin site remains intact and LE distal pulses unchanged via assessment with doppler. Transportation called for cigar packer and picker [facility] 11-22-2024 Miscellaneous Notes POA called to bedside and discharge instructions reviewed. Groin site remains intact and LE distal pulses unchanged via assessment with doppler. Transportation called for cigar packer and picker POA given updated via phone call. [...] the patient as well as the patient's [id number] Fidel. They have elected to proceed. PROCEDURE [...] technique was used to place a 5 Jordanian sheath. The Bentson wire was positioned in [...] catheter and the catheter removed. The 5 Jordanian sheath was exchanged for a long 6 Jordanian Ansell sheath which was positioned with its [...] sheath was exchanged for a short 6 Jordanian sheath. A Vascade closure device was deployed [...] MD Vascular Surgery documented in this encounter [facility] 11-22-2024 Procedure note POA given updated via phone call. Made aware of patient's orders to lay flat until 1325. Daughter in law stated that she will call care facility later to make arrangements for transportation back. [facility] 11-22-2024 Hospital Discharge instructions Mehreen Khanna MD [...] the office l documented in this encounter [facility] 11-22-2024 Nurse Note Patient arrived on unit. Name and date verified. Attached to monitors. Vital signs stable. [facility] 11-22-2024 Note [facility] 11-22-2024 Procedure note OPERATIVE REPORT DATE OF [...] the patient as well as the patient's [id number] Fidel. They have elected to proceed. PROCEDURE [...] technique was used to place a 5 Jordanian sheath. The Bentson wire was positioned in [...] catheter and the catheter removed. The 5 Jordanian sheath was exchanged for a long 6 Jordanian Ansell sheath which was positioned with its [...] sheath was exchanged for a short 6 Jordanian sheath. A Vascade closure device was deployed [...] preoperative examination. Kristyn Blankenship MD Vascular Surgery [facility] 11-22-2024 Attending History and physical note [...] with a walker with pT at her correction facility. She is on Eliquis and statin. She is a former smoker. PastMedical History: Past Medical History: Diagnosis Date Arrhythmia PAF Asthma Chronic kidney disease COPD (chronic obstructive pulmonary disease) (HCC) DVT (deep venous thrombosis) ([facility]) Essential hypertension 03/07/2020 GERD (gastroesophageal reflux disease) Hiatal hernia IBS (irritable bowel syndrome) Pure hypercholesterolemia 03/07/2020 PVD (peripheral vascular disease) ([facility]) Stroke ([facility]) Past Surgical History: Past Surgical History: Procedure Laterality Date ANKLE SURGERY ARM SURGERY (HISTORICAL) Right COLONOSCOPY ESOPHAGEAL DILATION EYE SURGERY Right 07/05/2024 [facility] EYE SURGERY Right 06/2024 , [facility] 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 Authorizing Provider amLODIPine (Norvasc) 5 MG tablet Take 1 tablet (5 mg) by mouth daily. 08/12/24 08/12/25 Kael Anderson, DO apixaban (Eliquis) 5 MG tablet Take [...] (06/20/2024) Received from [facility] Overall Financial Resource Strain (CARDIA) Difficulty [...] min Stress: Patient Unable To Answer (08/03/2024) [place] [place] of Occupational Health - Occupational Stress Questionnaire Feeling of Stress : Patient unable to answer Social Connections: Unknown (08/03/2024) Social Connection and Isolation Panel [NHANES] Frequency of Communication with Friends and Family: Patient unable to answer Frequency of Social Gatherings with Friends and Family: Patient unable to answer Attends Tenriism Services: Patient unable to answer Active Member of Clubs or Organizations: Patient unable to answer Attends Club or Organization Meetings: Never Marital Status: Patient unable to answer Recent Concern: Social Connections - Moderately Isolated (06/20/2024) Received from [facility] Social Connection and Isolation Panel [NHANES] Frequency of Communication with Friends and Family: More than three times a week Frequency of Social Gatherings with Friends and Family: Once a week Attends Tenriism Services: More than 4 times per year [...] like me to discuss this with her gjwpxrmz-[id number]-rwc Fidel Castillo. She states she is her POA. I have contacted Fidel via telephone and explained the above and the recommendations for angiography. She will speak with the patient and call the office to let us know how they would like to proceed. Kristyn Blankenship MD Vascular Surgery [employer] Work Phone: 11-22-2024 Note [employer] [facility] 11-22-2024 History and physical note H&P reviewed. [...] with a walker with pT at her correction facility. She is on Eliquis and statin. She is a former smoker. PastMedical History: Past Medical History: Diagnosis Date Arrhythmia PAF Asthma Chronic kidney disease COPD (chronic obstructive pulmonary disease) ([facility]) DVT (deep venous thrombosis) ([facility]) Essential hypertension 03/07/2020 GERD (gastroesophageal reflux disease) Hiatal hernia IBS (irritable bowel syndrome) Pure hypercholesterolemia 03/07/2020 PVD (peripheral vascular disease) ([facility]) Stroke ([facility]) Past Surgical History: Past Surgical History: Procedure Laterality Date ANKLE SURGERY ARM SURGERY (HISTORICAL) Right COLONOSCOPY ESOPHAGEAL DILATION EYE SURGERY Right 07/05/2024 [facility] EYE SURGERY Right 06/2024 x2, [facility] FINGER AMPUTATION Right 03/07/2020 right index finger [...] (06/20/2024) Received from [facility] Overall Financial Resource Strain (CARDIA) Difficulty [...] min Stress: Patient Unable To Answer (08/03/2024) [place] [place] [facility] Occupational Health - Occupational Stress Questionnaire Feeling of Stress : Patient unable to answer Social Connections: Unknown (08/03/2024) Social Connection and Isolation Panel [NHANES] Frequency of Communication with Friends and Family: Patient unable to answer Frequency of Social Gatherings with Friends and Family: Patient unable to answer Attends Tenriism Services: Patient unable to answer Active Member of Clubs or Organizations: Patient unable to answer Attends Club or Organization Meetings: Never Marital Status: Patient unable to answer Recent Concern: Social Connections - Moderately Isolated (06/20/2024) Received from [facility] Social Connection and Isolation Panel [NHANES] Frequency of Communication with Friends and Family: More than three times a week Frequency of Social Gatherings with Friends and Family: Once a week Attends Tenriism Services: More than 4 times per year [...] like me to discuss this with her [id number]-htw Fidel Castillo. She states she is her POA. I have contacted Fidel via telephone and explained the above and the recommendations for angiography. She will speak with the patient and call the office to let us know how they would like to proceed. Kristyn Blankenship MD Vascular Surgery documented in this encounter [facility] 11-09-2024 Note Tried to reach patie nt to discuss glaze mixer her procedure. Mailbox full & unable to leave voicemail. [facility] 11-05-2024 History of Present illness [...] with a walker with pT at her correction facility. She is on Eliquis and statin. [...] 07/05/2024 [facility] EYE SURGERY Right 06/2024 x2, [facility] FINGER AMPUTATION Right 03/07/2020 right index finger [...] (06/20/2024) Received from [facility] Overall Financial Resource Strain (CARDIA) Difficulty [...] min Stress: Patient Unable To Answer (08/03/2024) [facility] [place] [facility] [employer] - Occupational Stress Questionnaire Feeling of Stress : Patient unable to answer Social Connections: Unknown (08/03/2024) Social Connection and Isolation Panel [NHANES] Frequency of Communication with Friends and Family: Patient unable to answer Frequency of Social Gatherings with Friends and Family: Patient unable to answer Attends Tenriism Services: Patient unable to answer Active Member of Clubs or Organizations: Patient unable to answer Attends Club or Organization Meetings: Never Marital Status: Patient unable to answer Recent Concern: Social Connections - Moderately Isolated (06/20/2024) Received from [facility] Social Connection and Isolation Panel [NHANES] Frequency of Communication with Friends and Family: More than three times a week Frequency of Social Gatherings with Friends and Family: Once a week Attends Tenriism Services: More than 4 times per year [...] like me to discuss this with her rhndtxxx-qy-sir Fidel Castillo. She states she is her POA. I have contacted Fidel via telephone and explained the above and the recommendations for angiography. She will speak with the patient and call the office to let us know how they would like to proceed. Kristyn Blankenship MD Vascular Surgery documented in this encounter [facility] 11-05-2024 Note [facility] 10-01-2024 Note Date of Procedure 10/01/2024. [employer] Worker Information CATALINA Donovan CDOS 10/01/2024 10:58 AM [...] drops right eye documented in this encounter [facility] 10-01-2024 Note HNO ID: [id number] Author: SAVANA LOPEZ MD Service: ? Author [...] choroidals (not yet appositional) - Evaluated at [employer] 07/12/24 with intense nausea and multiple episodes [...] to HTN (SBP 199/99 at presentation to [place]) and anticoagulation that led to angle closure [...] agree with al (more content not included)... [facility] 10-01-2024 History of Present illness Narrative [...] choroidals (not yet appositional) - Evaluated at [employer] 07/12/24 with intense nausea and multiple episodes [...] to HTN (SBP 199/99 at presentation to [facility] [facility]) and anticoagulation that led to angle closure [...] its relevant components. 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 documented in this encounter [facility] 09-05-2024 Note HNO ID: [id number] Author: SAVANA LOPEZ MD Service: ? 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 [facility] 08-22-2024 History of Present illness Narrative [facility] Vascular Surgery Follow-up Office Visit CHIEF COMPLAINT: Chief Complaint Patient presents with Follow-up 3 month follow up, [facility] HISTORY OF PRESENT ILLNESS: Mel Pop [...] is ambulating with walker with PT at [facility] without difficulty. She denies any rest [...] 07/05/2024 [facility] EYE SURGERY Right 06/2024 x2, [facility] FINGER AMPUTATION Right 03/07/2020 right index finger [...] min Stress: Patient Unable To Answer (08/03/2024) [place] [facility] [employer] - Occupational Stress Questionnaire Feeling of Stress : Patient unable to answer Social Connections: Unknown (08/03/2024) Social Connection and Isolation Panel [NHANES] Frequency of Communication with Friends and Family: Patient unable to answer Frequency of Social Gatherings with Friends and Family: Patient unable to answer Attends Tenriism Services: Patient unable to answer Active Member of Clubs or Organizations: Patient unable to answer Attends Club or Organization Meetings: Never Marital Status: Patient unable to answer Recent Concern: Social Connections - Moderately Isolated (06/20/2024) Received from [facility] Social Connection and Isolation Panel [NHANES] Frequency of Communication with Friends and Family: More than three times a week Frequency of Social Gatherings with Friends and Family: Once a week Attends Tenriism Services: More than 4 times per year [...] Follow-Up: prn . documented in this encounter [facility] 08-16-2024 Note [facility] 08-16-2024 Nurse Note Patient picked up for transfer to [facility] by stretcher. Report already called to GENET Garcia. [facility] 08-16-2024 Nurse Note Patient picked up for transfer to [facility] by stretcher. Report already called to GENET Garcia. Telephone report called to GENET Garcia at [facility]. Bedside swallow completed. Pt passed and tolerated well tolerated well. documented in this encounter [facility] 08-16-2024 Nurse Note Telephone report called to GENET Garcia at [facility]. [facility] 08-16-2024 Note Formatting of this n ote might be different from the original. Arranged transport to [facility] via [facility] stretcher with pickup at 2pm. Notified snf of transport time via Careport message; reviewed time with RN, equal opportunity assistant and TCC. Called pt's daughter to review discharge time., plan; she is agreeable. [facility] 08-16-2024 Note Formatting of this n ote might be different from the original. Arranged transport to [facility] via [facility] stretcher with pickup at 2pm. Notified snf of transport time via Careport message; reviewed time with RN, equal opportunity assistant and TCC. Called pt's daughter to review discharge time., plan; she is agreeable. [facility] 08-16-2024 Miscellaneous Notes Arranged transport to [facility] via [employer] with pickup at 2pm. Notified snf of transport time via Careport message; reviewed time with RN, equal opportunity assistant and TCC. Called pt's daughter to review discharge time., plan; she is agreeable. Patient Choice Patient Name: MEL POP Date of : 1940 All Providers Sent Referral Name: [facility] Phone: [phone] Address: [address] [place] [address] Name: [facility] Phone: [phone] Address: [address] [place] [address] Name: [facility] Phone: [phone] Address: [address] [place] [address] MAR & Discharge med list transmitted to [facility] via [facility]port per TCC request. Pt has auth to go to [facility]. Dtr Fidel,[phone] was called, message left @DC. Care Team was messaged...place DC orders/MAR. Dar YOUNG RN complete HECTOR. LATIN DANCE INSTRUCTOR will arrange transport for this am. JESSICA tasked to sebd DC orders/MAR. Problem: Knowledge [...] Progressing Authorization is pending with [employer]. Ref# [id number] to be DC'd to [facility]. Dtr Fidel Updated. CM to follow. Patient [...] Progressing [facility] Need PT/OT to see so auth to be started. Therapy to see today was sent. Called and spoke with Dtr braxton Stokes. SNF tasked w loretta. CM to follow. Problem: Knowledge Deficit Goal: [...] Progressing Referral placed to SNF- [facility] per [facility] request. Await review and response regarding ability to accept. TCC notified. Electronically signed by Christine Morataya [facility], 08-13-2024 at 3:00 PM Called dgt to talk about dc planning. Dgt continues to tour SNFs this evening, since she was sick this weekend. Provided me with two more SNF choices. The [facility] Tasked [facility] to create these referrals. CM to [...] Dgt touring facilities over the weekend. Moira. [facility] pending acceptance, updates sent via careCloudMine. Problem: Knowledge Deficit Goal: Patient/family/caregiver demonstrates understanding [...] Nutritional Intake Outcome: Progressing Referral placed to [facility] via [facility] per [facility] request. Await review and response regarding ability to accept. TCC notified. Electronically signed by Christine Morataya [facility], 08-10-2024 at 9:23AM Pt was to be DC to [facility]. Found out pt and dtr didn't want to return to [facility]. SNF was made aware. On adm spoke with Dtr Fidel, ok to return. Called Dtr this am, after speaking with pt and things that happened and didn't happen. Fidel requesting a referral to be made to [facility]. [facility] tasked to send. A SNF list was emailed to Fidel. [email or web address]. She will tour facilities over weekend. CM [...] and med list sent via Careport to [facility] per TCC request. Auth received. Patient with active dc orders. Transportation arranged through [employer] with estimated cigar packer and picker time of 1929. VM left with daughter Fidel along with 3N phone number to call with questions. Bedside RN aware. Facility updated. [facility] supervisory training specialist sent orders to [facility]. enterprise account manager was asked to assist with setting up transport back to [facility] this evening. sales secretary had already done so, but this manager agricultural called daughter to inform her of discharge and transport set up. Daughter did not wish patient to return to the SNF. Soil Engineer told her that patient is medically stable for dc and that she should continue the discussion with the social work professor and legal office administrator at The snf, and also get options from [employer]. Coordinator was to message the snf about return this evening via CarePort. Updated PT/OT notes placed to SNF [facility] via [facility] per TCC request. Await review and response regarding ability to accept. TCC notified. Patient is medically ready for dc. PT/OT both continuing to recommend SNF. [facility] manager agricultural asked to start auth. Plan to dc back to [facility] pending auth I was off Yesterday, PT note was in from Tuesday. Therapy to see today was sent out to OT Tuesday to see yesterday. Pt was not seen. I did sent a therapy to see today to PT/OT so an auth can be started. Pt will Be Dc'd to [facility]. CM to follow. Problem: Knowledge Deficit [...] aspiration 2/2 vomiting. Discharge Plan: Return to [facility]. Therapy eval needed for precert. TCC [...] Plan is for pt to return to [facility]. Auth and HECTOR needed prior to DC. CM to follow. Per attending pt ready for DC. Pt will return to [facility]. Pt needs PT/OT to start [...] RN Outcome: Progressing Return referral placed to [facility] per TCC request. Await review and response regarding ability to accept. TCC notified. Pt to ED w N/V/Diarrhea, was Dx w Aspiration pneumonitis. Started on IV ATB's. Called pt's Keithr, Fidel, . Pt is from [facility]. Plan on returning. [facility] tasked to send a return referral. [...] Improved Outcome: Progressing documented in this encounter [facility] 08-16-2024 Note Formatting of this n ote might be different from the original. Patient Choice Patient Name: MEL POP Date of : 1940 All Providers Sent [facility] Phone: [phone] Address: [address] [place] [address] Name: [facility] Phone: [phone] Address: [address] [place] [address] Name: [facility] Phone: [phone] Address: [address] [place] [address] [facility] 08-16-2024 Note Formatting of this n ote might be different from the original. Patient Choice Patient Name: MEL POP Date of : 1940 All Providers Sent Referral Name: [facility] Phone: [phone] Address: [address] [place] [address] Name: [facility] Phone: [phone] Address: [address] [facility] [place] [address] Name: [facility] Phone: [phone] Address: [address] [place] [address] [facility] 08-16-2024 Note Formatting of this n ote might be different from the original. MAR & Discharge med list transmitted to [facility] via Careport per TCC request. [facility] 08-16-2024 Note Formatting of this n ote might be different from the original. MAR & Discharge med list transmitted to [facility] via [facility]port per TCC request. [facility] 08-16-2024 Note Formatting of this n ote might be different from the original. Pt has auth to go to [facility]. Dtr Fidel,[phone] was called, message left @DC. Care Team was messaged...place DC orders/MAR. Dar YOUNG RN complete HECTOR. LATIN DANCE INSTRUCTOR will arrange transport for this am. [facility] tasked to sebd DC orders/MAR. [facility] 08-16-2024 Note Formatting of this n ote might be different from the original. Pt has auth to go to [facility]. Dtr Fidel,[phone] was called, message left @DC. Care Team was messaged...place DC orders/MAR. Ithe HECTOR, RN complete HECTOR. LATIN DANCE INSTRUCTOR will arrange transport for this am. FLASK HANDLER tasked to sebd DC orders/MAR. [facility] 08-16-2024 History of Present illness Narrative Hospitalist Progress Note 08/16/2024 Subjective: Admit Date: 08/03/2024 PCP: Jared Evans MD Room#: [id number] A BRIEF HOSPITAL COURSE: Mel is a 83 y.o. female with past medical history below who presents with chief complaint listed above.Patient is an 83 y/o female who presented to [place] [facility] early this AM from local [place] for vomiting and diarrhea. Patient reported she [...] pulmonary disease) (HCC) DVT (deep venous thrombosis) ([facility]) Essential hypertension 03/07/2020 GERD (gastroesophageal reflux disease) Hiatal hernia IBS (irritable bowel syndrome) Pure hypercholesterolemia 03/07/2020 PVD (peripheral vascular disease) ([facility]) Stroke ([facility]) LABS: CBC: No results for input(s): "WBC", [...] Devika Escobar MD Division of Hospitalist Medicine [facility] Hospitalist Progress Note 08/15/2024 Subjective: Admit Date: 08/03/2024 PCP: Jared Evans MD Room#: [id number] A BRIEF HOSPITAL COURSE: Mel is a 83 y.o. female with past medical history below who presents with chief complaint listed above.Patient is an 83 y/o female who presented to [place] [facility] early this AM from [place] for vomiting and diarrhea. Patient reported she [...] pulmonary disease) (HCC) DVT (deep venous thrombosis) ([facility]) Essential hypertension 03/07/2020 GERD (gastroesophageal reflux disease) Hiatal hernia IBS (irritable bowel syndrome) Pure hypercholesterolemia 03/07/2020 PVD (peripheral vascular disease) ([facility]) Stroke ([facility]) LABS: CBC: No results for input(s): "WBC", [...] Devika Escobar MD Division of Hospitalist Medicine [facility] Images from the original note were not included. PHYSICAL THERAPY [facility] Treatment Note Name/MRN: Mel Pop ([id number]) Date of : 1940 Age: 83 y.o. 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 [...] Goal: keep getting up, get back to [place]. Encounter Problems Encounter Problems (Active) Balance Patient [...] original note were not included. OCCUPATIONAL THERAPY [facility] Treatment Note Name/MRN: Mel Pop ([id number]) Date of : 1940 Age: 83 y.o. [facility] A Discharge Recommendation: Intermediate Facility Prior Level [...] assist, home health OT and home health care social worker. Pt. ( Who is totally BLIND), Would due better receiving therapy in her home due to familiar environment. If she can not get 24/7 assist at home then OT recommend SNF at mo. Subjective Pt. Remains in her recliner eating [...] Date: 08/03/2024 PCP: Jared Evans MD Room#: [id number] A BRIEF HOSPITAL COURSE: Mel is a 83 y.o. female with past medical history below who presents with chief complaint listed above.Patient is an 83 y/o female who presented to [facility] early this AM [place] local [place] for vomiting and diarrhea. Patient reported she [...] Pure hypercholesterolemia 03/07/2020 PVD (peripheral vascular disease) ([facility]) Stroke (HCC) LABS: CBC: No results for [...] Devika Escobar MD Division of Hospitalist Medicine [facility] [place] Hospitalist Progress Note 08/13/2024 Subjective: Admit Date: 08/03/2024 PCP: Jared Evans MD Room#: [id number] A BRIEF HOSPITAL COURSE: Mel is a 83 y.o. female with past medical history below who presents with chief complaint listed above.Patient is an 83 y/o female who presented to [facility] early this AM from local [place] for vomiting and diarrhea. Patient reported she [...] pulmonary disease) (HCC) DVT (deep venous thrombosis) ([facility]) Essential hypertension 03/07/2020 GERD (gastroesophageal reflux disease) Hiatal hernia IBS (irritable bowel syndrome) Pure hypercholesterolemia 03/07/2020 PVD (peripheral vascular disease) ([facility]) Stroke ([facility]) LABS: CBC: No results for input(s): "WBC", [...] Kael Anderson DO Division of Hospitalist Medicine [facility] [place] Nutrition Assessment Type and Reason for Visit: [...] No significant fluid accumulation (per flow sheets) Overlock Sewing Machine Operator Strength: Not Performed Nutrition Assessment: 83 y.o. [...] On: Kcal/kg Weight Used for Energy Requirements: [place] Weight for Energy Calculation (kg): 54 kg Total Energy Requirements (kcals/day): 4582-3238 Weight Used for Protein Requirements: [place] Weight in Kg Used for Protein Requirements: [...] 160# 07/05) % Weight Change (Calculated): 12.2 [place] Body Weight (lbs) (Calculated): 119 lbs [place] Body Weight (Kg) (Calculated): 54 kg BMI [...] soon to determine Janki Fields RD Contact: *[phone] Hospitalist Progress Note 08/12/2024 Subjective: Admit Date: 08/03/2024 PCP: Jared Evans MD Room#: [id number] A BRIEF HOSPITAL COURSE: Mel is a 83 y.o. female with past medical history below who presents with chief complaint listed above.Patient is an 83 y/o female who presented to [facility] early this AM from [place] for vomiting and diarrhea. Patient reported she [...] Pure hypercholesterolemia 03/07/2020 PVD (peripheral vascular disease) ([facility]) Stroke ([facility]) LABS: CBC: No results for input(s): "WBC", [...] Kael Anderson DO Division of Hospitalist Medicine [facility] [place] Hospitalist Progress Note 08/11/2024 Subjective: Admit Date: 08/03/2024 PCP: Jared Evans MD Room#: [id number] A BRIEF HOSPITAL COURSE: Mel is a 83 y.o. female with past medical history below who presents with chief complaint listed above.Patient is an 83 y/o female who presented to [facility] early this AM from local [place] for vomiting and diarrhea. Patient reported she [...] Pure hypercholesterolemia 03/07/2020 PVD (peripheral vascular disease) ([facility]) Stroke ([facility]) LABS: CBC: No results for input(s): "WBC", [...] of Hospitalist Medicine [facility] Hospitalist Progress Note 08/10/2024 Subjective: Admit Date: 08/03/2024 PCP: Jared Evans MD Room#: [id number] A BRIEF HOSPITAL COURSE: Mel is a 83 y.o. female with past medical history below who presents with chief complaint listed above.Patient is an 83 y/o female who presented to [facility] early this AM from local [place] for vomiting and diarrhea. Patient reported she [...] Kael Anderson DO Division of Hospitalist Medicine [facility] [place] Hospitalist Progress Note 08/09/2024 Subjective: Admit Date: 08/03/2024 PCP: Jared Evans MD Room#: [id number] A BRIEF HOSPITAL COURSE: Mel is a 83 y.o. female with past medical history below who presents with chief complaint listed above.Patient is an 83 y/o female who presented to [facility] early this AM from local [place] for vomiting and diarrhea. Patient reported she [...] kidney disease COPD (chronic obstructive pulmonary disease) ([facility]) DVT (deep venous thrombosis) ([facility]) Essential hypertension 03/07/2020 GERD (gastroesophageal reflux disease) Hiatal hernia IBS (irritable bowel syndrome) Pure hypercholesterolemia 03/07/2020 PVD (peripheral vascular disease) ([facility]) Stroke ([facility]) LABS: CBC: No results for input(s): "WBC", [...] Kael Anderson DO Division of Hospitalist Medicine [facility] [place] Images from the original note were not included. OCCUPATIONAL THERAPY [facility] Initial Evaluation Name/MRN: Mel Pop ([id number]) Evaluation Date: 08/08/2024 Date of : 1940 Admission Date: 08/03/2024 2:22 AM Age: 83 y.o. [facility] Discharge Recommendation: Intermediate Facility [...] kidney disease COPD (chronic obstructive pulmonary disease) ([facility]) DVT (deep venous thrombosis) ([facility]) Essential hypertension 03/07/2020 GERD (gastroesophageal reflux disease) Hiatal hernia IBS (irritable bowel syndrome) Pure hypercholesterolemia 03/07/2020 PVD (peripheral vascular disease) ([facility]) Stroke ([facility]) Past Surgical History: Past Surgical History: Procedure Laterality Date ANKLE SURGERY ARM SURGERY (HISTORICAL) Right COLONOSCOPY ESOPHAGEAL DILATION EYE SURGERY 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 HYSTERECTOMY ORTHOPEDIC SURGERY THROMBECTOMY Right 04/06/2024 RLE mechanical thrombectomy (Krzysztof) Admission Diagnosis: Patient Active Problem List Diagnosis Date Noted Aspiration pneumonitis (CMS/HCC) ([facility]) 08/03/2024 Visual disturbance, subjective 07/06/2024 Retinal detachment, right 07/05/2024 Vision loss of right eye 07/05/2024 Acute venous embolism and thrombosis of deep vessels of proximal lower extremity ([facility]) 04/14/2024 Peripheral arterial disease ([facility]) 04/03/2024 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 ([facility]) 07/27/2023 Bilateral pneumonia 06/16/2022 COVID-19 06/16/2022 Hypothyroidism 06/16/2022 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[facility]) 06/16/2022 Cellulitis 05/18/2022 Nicotine use disorder 05/18/2022 Acute venous embolism and thrombosis of deep vessels of proximal end of right lower extremity ([facility]) 04/19/2024 Atrial fibrillation, unspecified type ([facility]) 04/19/2024 Irritable bowel syndrome with diarrhea 03/07/2020 Microscopic hematuria 03/07/2020 Left retinal detachment 03/07/2020 Hyperglycemia 03/07/2020 Osteopenia of left femoral neck 03/07/2020 halfway current use of anticoagulant therapy 03/07/2020 Seasonal allergies 03/07/2020 Chronic renal insufficiency, stage III (moderate) ([facility]) 03/07/2020 Major depression, single episode, in complete remission ([facility]) 03/07/2020 Gastroesophageal reflux disease without esophagitis 03/07/2020 Essential hypertension 03/07/2020 Pure hypercholesterolemia 03/07/2020 Overweight 03/07/2020 Psoriasis 03/07/2020 History of cerebrovascular accident 03/07/2020 Atrial fibrillation ([facility]) 03/07/2020 Chronic obstructive pulmonary disease ([facility]) 03/07/2020 Finger osteomyelitis, right ([facility]) 03/06/2020 Medical Precautions: Enhanced Contact Proper PPE [...] of Care supervision is transferred to a [facility] Therapy Services Occupational Therapist. Goals and/or treatment plan was established in collaboration with patient/family/other representatives. Shannon Fernandez MS, OTR/L Images from the original note were not included. PHYSICAL THERAPY [facility] Treatment Note Name/MRN: Mel Pop ([id number]) Date of : 1940 Age: 83 y.o. Room/Bed: N5548/N5548 A Discharge Recommendation: Intermediate Facility Equipment Needed: (pt uses FWW 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) Prior Level of Function Prior Level of [...] Goal: keep getting up, get back to [facility]. Encounter Problems Encounter Problems (Active) Balance Patient [...] Date: 08/03/2024 PCP: Jared Evans MD Room#: [id number]/[id number] A BRIEF HOSPITAL COURSE: Mel is a 83 y.o. female with past medical history below who presents with chief complaint listed above.Patient is an 83 y/o female who presented to [facility] early this AM from local [place] for vomiting and diarrhea. Patient reported she [...] Kael Anderson DO Division of Hospitalist Medicine [facility] [place] Hospitalist Progress Note 08/07/2024 Subjective: Admit Date: 08/03/2024 PCP: Jared Evans MD Room#: [id number]/[id number] A BRIEF HOSPITAL COURSE: Mel is a 83 y.o. female with past medical history below who presents with chief complaint listed above.Patient is an 83 y/o female who presented to [facility] early this AM from local [place] for vomiting and diarrhea. Patient reported she [...] pulmonary disease) (HCC) DVT (deep venous thrombosis) ([facility]) Essential hypertension 03/07/2020 GERD (gastroesophageal reflux disease) Hiatal hernia IBS (irritable bowel syndrome) Pure hypercholesterolemia 03/07/2020 PVD (peripheral vascular disease) ([facility]) Stroke (HCC) LABS: CBC: Recent Labs 08/05/24 [...] 100 mL/hr, Last Rate: 100 mL/hr (08/06/24 0324) Assessment Data: Acute, acute on chronic, unstable/uncontrolled [...] DO Division of Hospitalist Medicine Acute care [facility] Hospitalist Progress Note 08/06/2024 Subjective: Admit Date: 08/03/2024 PCP: Jared Evans MD Room#: [id number] A BRIEF HOSPITAL COURSE: Mel is a 83 y.o. female with past medical history below who presents with chief complaint listed above.Patient is an 83 y/o female who presented to [facility] early this AM from [place] for vomiting and diarrhea. Patient reported she [...] pulmonary disease) (HCC) DVT (deep venous thrombosis) ([facility]) Essential hypertension 03/07/2020 GERD (gastroesophageal reflux disease) Hiatal hernia IBS (irritable bowel syndrome) Pure hypercholesterolemia 03/07/2020 PVD (peripheral vascular disease) ([facility]) Stroke ([facility]) LABS: CBC: Recent Labs 08/04/2444608/05/2435708/05/24 2343 WBC 5.6 6.5 7.3 RBC 3.88 3.78* 3.96 HGB 10.0* 9.9* 10.3* HCT 33.0* 31.9* 33.3* MCV 85.1 84.4 84.1 RDW 19.3* 19.2* 18.9* PLT 280 242 235 BMP: Recent Labs 08/04/2444608/05/24 0358 08/05/24 2343 NA 139 134* 139 K 3.9 3.8 3.8 CL 112* 108* 115* CO2 21* 21* 17* BUN 26* 13 9 CREATININE 1.13* 0.89 0.91 GLUCOSE 153* 85 92 CALCIUM 8.2* 8.1* 8.4* ANIONGAP 6 5 7 LIVER PROFILE: Recent Labs 08/04/2444608/05/2435708/05/24 2343 AST 25 24 21 ALT 26 [...] MD Division of Hospitalist Medicine Acute care [facility] Images from the original note were not included. PHYSICAL THERAPY [facility] Initial Evaluation Name/MRN: Mel Pop ([id number]) Evaluation Date: 08/06/2024 Date of : 1940 Admission Date: 08/03/2024 2:22 AM Age: 83 y.o. [facility] A Discharge Recommendation: Intermediate Facility (pt from SNF at baseline) Equipment Needed: (pt uses FWW 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) Assessment IMPRESSION: Pt's Vincent scoring has varied [...] to SNF-level care (pt was receiving PT 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) Admitting Diagnosis: aspiration pneumonitis, + Norovirus. S/p [...] kidney disease COPD (chronic obstructive pulmonary disease) ([facility]) DVT (deep venous thrombosis) ([facility]) Essential hypertension 03/07/2020 GERD (gastroesophageal reflux disease) Hiatal hernia IBS (irritable bowel syndrome) Pure hypercholesterolemia 03/07/2020 PVD (peripheral vascular disease) ([facility]) Stroke ([facility]) Past Surgical History: Past Surgical History: Procedure Laterality Date ANKLE SURGERY ARM SURGERY (HISTORICAL) Right COLONOSCOPY ESOPHAGEAL DILATION EYE SURGERY 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 HYSTERECTOMY ORTHOPEDIC SURGERY THROMBECTOMY Right 04/06/2024 RLE mechanical thrombectomy (Krzysztof) Admission Diagnosis: Patient Active Problem List Diagnosis Date Noted Aspiration pneumonitis ([facility]) ([facility]) 08/03/2024 Visual disturbance, subjective 07/06/2024 Retinal detachment, right 07/05/2024 Vision loss of right eye 07/05/2024 Acute venous embolism and thrombosis of deep vessels of proximal lower extremity ([facility]) 04/14/2024 Peripheral arterial disease ([facility]) 04/03/2024 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 ([facility]) 07/27/2023 Bilateral pneumonia 06/16/2022 COVID-19 06/16/2022 Hypothyroidism 06/16/2022 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[facility]) 06/16/2022 Cellulitis 05/18/2022 Nicotine use disorder 05/18/2022 Acute venous embolism and thrombosis of deep vessels of proximal end of right lower extremity ([facility]) 04/19/2024 Atrial fibrillation, unspecified type ([facility]) 04/19/2024 Irritable bowel syndrome with diarrhea 03/07/2020 Microscopic hematuria 03/07/2020 Left retinal detachment 03/07/2020 Hyperglycemia 03/07/2020 Osteopenia of left femoral neck 03/07/2020 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 03/07/2020 Seasonal allergies 03/07/2020 Chronic renal insufficiency, stage III (moderate) ([facility]) 03/07/2020 Major depression, single episode, in complete remission ([facility]) 03/07/2020 Gastroesophageal reflux disease without esophagitis 03/07/2020 Essential hypertension 03/07/2020 Pure hypercholesterolemia 03/07/2020 Overweight 03/07/2020 Psoriasis 03/07/2020 History of cerebrovascular accident 03/07/2020 Atrial fibrillation ([facility]) 03/07/2020 Chronic obstructive pulmonary disease ([facility]) 03/07/2020 Finger osteomyelitis, right ([facility]) 03/06/2020 Medical Precautions: Enhanced Contact Proper PPE [...] OD Hearing: normal Social/Functional History Resident at [facility] at baseline. Goes to therapy [...] Stairs) : 15 JH-HLM JH-HLM Score: Walked 10 steps or [...] Goal: keep getting up, get back to [facility]. Encounter Problems Encounter Problems (Active) Balance Patient [...] of Care supervision is transferred to a [facility] Therapy Services Physical Therapist. Goals and/or treatment plan was established in collaboration with patient/family/other representatives. Hospitalist Progress Note 08/05/2024 Subjective: Admit Date: 08/03/2024 PCP: Jared Evans MD Room#: N5-405/[id number] A BRIEF HOSPITAL COURSE: Mel is a 83 y.o. female with past medical history below who presents with chief complaint listed above.Patient is an 83 y/o female who presented to [facility] early this AM from local [place] for vomiting and diarrhea. Patient reported she [...] Kayden Tatum MD Division of Hospitalist Medicine [facility] [place] Images from the original note were not included. PHYSICAL THERAPY [facility] Name/MRN: Mel Pop ([id number]) Date: 08/05/2024 PT orders received per Vincent [...] an 83 y/o female who presented to [facility] early this AM from local [place] for vomiting and diarrhea. Patient reported she [...] pulmonary disease) (HCC) DVT (deep venous thrombosis) ([facility]) Essential hypertension 03/07/2020 GERD (gastroesophageal reflux disease) Hiatal hernia IBS (irritable bowel syndrome) Pure hypercholesterolemia 03/07/2020 PVD (peripheral vascular disease) ([facility]) Stroke ([facility]) LABS: CBC: Recent Labs 08/03/24 0251 08/04/24 [...] Kayden Tatum MD Division of Hospitalist Medicine [facility] [place] documented in this encounter [facility] 08-15-2024 Plan of care note [...] My discharge needs are met Outcome: Progressing [facility] 08-15-2024 Note Formatting of this n ote might be different from the original. Authorization is pending with [employer]. Ref# [id number] to be DC'd to [facility]. Dtr Fidel Updated. CM to follow. [facility] 08-15-2024 Note Formatting of this n ote might be different from the original. Authorization is pending with [employer]. Ref# [id number] to be DC'd to [facility]. Dtr Fidel Sharma. CM to follow. [facility] 08-15-2024 Note Patient progressing toward all goals. [facility] 08-15-2024 Plan of care note Patient progressing toward all goals. [facility] 08-14-2024 Plan of care note Problem: [...] My discharge needs are met Outcome: Progressing [facility] 08-14-2024 Hospital Discharge instructions Devika Escobar MD - 08/14/2024 1:30 PM EST As tolerated with PT/OT Devika Escobar MD - 08/14/2024 1:30 PM EST Regular diet Cici Perez RN - 08/06/2024 5:31 PM EST Images from the original note were not included. 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 Seasonal [...] lower extremity (HCC) Atrial fibrillation, unspecified type ([facility]) Isolation/Infection: Enhanced Contact Norovirus Nurse Assessment: Last [...] assistance Toileting Total assistance Feeding Minimal assistance Perishable Freight Inspector Minimal assistance Med Delivery yes Wound Care [...] select all that are sent with patient): [place] RN SIGNATURE: MANAGEMENT/SOCIAL WORK SECTION Inpatient Status Date: 08/03/2024 Discharging to Facility/ Agency Name: [facility] Address: [address] [place] [address] Fax: Dialysis Facility (if applicable) Name: NA Address: Dialysis Schedule: Phone: Fax: [facility]man signature: ICIAN SECTION Name: Mel Pop Prognosis: good Condition at Discharge: stable Rehab Potential (if transferring to Rehab): good Recommended Labs or Other Treatments After Discharge: none The individual is being admitted to a nursing facility directly from an [facility] or a unit of a [facility] that is not operated by or licensed by [facility] under section 5119.14 or 5160-3-15.1 5 The individual requires the level of services provided by a nursing facility for the condition for which he or she was treated in the hospital and, Physician Certification: I certify the above information and transfer of Mel Pop is necessary for the continuing treatment of the diagnosis listed and that she requires correction facility for less than 30 days. Update Admission H&P: No change in H&P PHYSICIAN SIGNATURE: documented in this encounter [facility] 08-14-2024 Note Formatting of this n ote might be different from the original. [facility] Need PT/OT to see so auth to be started. Therapy to see today was sent. Called and spoke with Dtbraxton Verdin. SNF tasked w update. CM to follow. [facility] 08-14-2024 Note Formatting of this n ote might be different from the original. Pt has Been accepted to [facility]. Need PT/OT to see so auth to be started. Therapy to see today was sent. Called and spoke with Dtbraxton Verdin. SNF tasked w update. CM to follow. [facility] 08-13-2024 Plan of care note Problem: Knowledge [...] My discharge needs are met Outcome: Progressing [facility] 08-13-2024 Note Formatting of this n ote might be different from the original. Referral placed to [facility] via [facility] per TCC request. Await review and response regarding ability to accept. TCC notified. Electronically signed by Christine Morataya [facility], 08-13-2024 at 3:00 PM [facility] 08-13-2024 Note Formatting of this n ote might be different from the original. Referral placed to SNF- [facility] via [facility]port per TCC request. Await review and response regarding ability to accept. TCC notified. Electronically signed by Christine Morataya [facility], 08-13-2024 at 3:00 PM [facility] 08-13-2024 Note Referral placed to S - [facility] via [facility]port per TCC request. Await review and response regarding ability to accept. TCC notified. Electronically signed by Christine Morataya [facility], 08-13-2024 at 3:00 PM [facility] 08-13-2024 Note Formatting of this n ote might be different from the original. Called dgt to talk about dc planning. Dgt continues to tour SNFs this evening, since she was sick this weekend. Provided me with two more SNF choices. [facility]. Tasked [facility] to create these referrals. CM to follow. [facility] 08-13-2024 Note Formatting of this n ote might be different from the original. Called dgt to talk about dc planning. Dgt continues to tour SNFs this evening, since she was sick this weekend. Provided me with two more SNF choices. [facility] [facility]. Tasked [facility] to create these referrals. CM to follow. [facility] 08-13-2024 Plan of care note Problem: [...] My discharge needs are met Outcome: Progressing [facility] 08-12-2024 Note Problem: Knowledge D eficit Goal: Patient/family/caregiver demonstrates understanding of disease process, treatment plan, medications, and discharge instructions Outcome: Progressing [facility] 08-12-2024 Plan of care note Problem: Knowledge Deficit Goal: Patient/family/caregiver demonstrates understanding of disease process, treatment plan, medications, and discharge instructions Outcome: Progressing [facility] 08-12-2024 Plan of care note Problem: [...] My discharge needs are met Outcome: Progressing [facility] 08-11-2024 Plan of care note Problem: Knowledge [...] My discharge needs are met Outcome: Progressing [facility] 08-11-2024 Note Formatting of this n ote might be different from the original. CM noted DC orders in place, Dgt touring facilities over the weekend. [place]. [facility] pending acceptance, updates sent via careport. [facility] 08-11-2024 Note Formatting of this n ote might be different from the original. CM noted DC orders in place, Dgt touring facilities over the weekend. [place]. [facility] Center pending acceptance, updates sent via careport. [employer] [facility] 08-11-2024 Plan of care note Problem: Knowledge [...] Interventions Goal: Assess Nutritional Intake Outcome: Progressing [facility] 08-10-2024 Note Formatting of this n ote might be different from the original. Referral placed to [facility] via Careport per TCC request. Await review and response regarding ability to accept. TCC notified. Electronically signed by Christine Morataya [facility], 08-10-2024 at 9:23AM [facility] 08-10-2024 Note Formatting of this n ote might be different from the original. Referral placed to [facility] via Careport per TCC request. Await review and response regarding ability to accept. TCC notified. Electronically signed by Christine Morataya [facility], 08-10-2024 at 9:23AM [facility] 08-10-2024 Note Referral placed to [facility] via Careport per TCC request. Await review and response regarding ability to accept. TCC notified. Electronically signed by Christine Morataya [facility], 08-10-2024 at 9:23AM [facility] 08-10-2024 Note Formatting of this n ote might be different from the original. Pt was to be DC to [facility]. Found out pt and dtr didn't want to return to [facility]. SNF was made aware. On adm spoke with Dtr Fidel, ok to return. Called Dtr this am, after speaking with pt and things that happened and didn't happen. Fidel requesting a referral to be made to [facility]. [facility] tasked to send. A SNF list was emailed to Fidel. [email or web address]. She will tour facilities over weekend. CM to follow. [facility] 08-10-2024 Note Formatting of this n ote might be different from the original. Pt was to be DC to [facility]. Found out pt and dtr didn't want to return to [facility]. SNF was made aware. On adm spoke with Dtr Fidel, ok to return. Called Dtr this am, after speaking with pt and things that happened and didn't happen. Fidel requesting a referral to be made to [facility]. [facility] tasked to send. A SNF list was emailed to Fidel. [email or web address]. She will tour facilities over weekend. CM to follow. [facility] 08-10-2024 Plan of care note Problem: [...] Interventions Goal: Assess Nutritional Intake Outcome: Progressing [facility] 08-09-2024 Note Formatting of this n ote might be different from the original. Discharge summary and med list sent via Careport to [facility] per TCC request. [facility] 08-09-2024 Note Formatting of this n ote might be different from the original. Discharge summary and med list sent via Careport to [facility] per TCC request. [facility] 08-09-2024 Note Discharge summary an d med list sent via [facility] to [facility] per TCC request. [facility] 08-09-2024 Note Formatting of this n ote might be different from the original. Auth received. Patient with active dc orders. Transportation arranged through [employer] with estimated cigar packer and picker time of 1930. VM left with daughter Fidel along with 3N phone number to call with questions. Bedside RN aware. Facility updated. [facility] supervisory training specialist sent orders to [facility]. [facility] 08-09-2024 Note Formatting of this n ote might be different from the original. Auth received. Patient with active dc orders. Transportation arranged through [employer] with estimated cigar packer and picker time of 1930. VM left with daughter Fidel along with 3N phone number to call with questions. Bedside RN aware. Facility updated. [facility] supervisory training specialist sent orders to [facility]. [facility] 08-09-2024 Note Formatting of this n ote might be different from the original. enterprise account manager was asked to assist with setting up transport back to [facility] this evening. sales secretary had already done so, but this manager agricultural called daughter to inform her of discharge and transport set up. Daughter did not wish patient to return to the SNF. Soil Engineer told her that patient is medically stable for dc and that she should continue the discussion with the social work professor and legal office administrator at [facility], and also get options from [employer]. Coordinator was to message the snf about return this evening via [employer]. [facility] 08-09-2024 Note Formatting of this n ote might be different from the original. enterprise account manager was asked to assist with setting up transport back to [facility] this evening. sales secretary had already done so, but this manager agricultural called daughter to inform her of discharge and transport set up. Daughter did not wish patient to return to the SNF. Soil Engineer told her that patient is medically stable for dc and that she should continue the discussion with the social work professor and legal office administrator at The snf, and also get options from [employer]. Coordinator was to message the snf about return this evening via [employer]. [facility] 08-09-2024 Note [facility] 08-09-2024 Hospital course Narrative Hospitalist Discharge Summary [...] an 83 y/o female who presented to [place] [facility] early this AM from local [place] for vomiting and diarrhea. Patient reported she [...] Ellipta 100-62.5-25 MCG/ACT aerosol powder Generic drug: Jftbxemlsas-Kcuhdplsa-Qahtky STOP taking these medications enoxaparin 80 MG/0.8ML [...] Complexity: follow up within 7-14 calendar days (27082) [x] Severe Complexity: follow up within 7 calendar days (06153) Follow up Testing, Pending results or Referrals [...] Anderson DO Division of Hospitalist Medicine [facility] 08/09/2024, 4:23 PM documented in this encounter [facility] 08-09-2024 Note Formatting of this n ote might be different from the original. Updated PT/OT notes placed to [facility] Ashu Tomlin via Careport per TCC request. Await review and response regarding ability to accept. TCC notified. [employer] [facility] 08-09-2024 Note Formatting of this n ote might be different from the original. Updated PT/OT notes placed to SNF [facility] via Careport per TCC request. Await review and response regarding ability to accept. TCC notified. Electronically signed by [facility] Aracelis Gardiner [employer] [facility] 08-09-2024 Note Formatting of this n ote might be different from the original. Patient is medically ready for dc. PT/OT both continuing to recommend SNF. [facility] manager agricultural asked to start auth. Plan to dc back to [facility] pending auth [facility] 08-09-2024 Note Formatting of this n ote might be different from the original. Patient is medically ready for dc. PT/OT both continuing to recommend SNF. [facility] manager agricultural asked to start auth. Plan to dc back to [facility] pending auth [employer] [facility] 08-08-2024 Note Formatting of this n ote might be different from the original. I was off Yesterday, PT note was in from Tuesday. Therapy to see today was sent out to OT Tuesday to see yesterday. Pt was not seen. I did sent a therapy to see today to PT/OT so an auth can be started. Pt will Be Dc'd to [facility]. CM to follow. [employer] [facility] 08-08-2024 Note Formatting of this n ote might be different from the original. I was off Yesterday, PT note was in from Tuesday. Therapy to see today was sent out to OT Tuesday to see yesterday. Pt was not seen. I did sent a therapy to see today to PT/OT so an auth can be started. Pt will Be Dc'd to [facility]. CM to follow. [employer] [facility] 08-07-2024 Plan of care note Problem: Knowledge Deficit Goal: Patient/family/caregiver demonstrates understanding of disease process, treatment plan, medications, and discharge instructions Outcome: Progressing Problem: Potential for Compromised Skin Integrity Goal: Skin Integrity is Maintained or Improved Outcome: Progressing Goal: Nutritional status is improving Outcome: Progressing [employer] [facility] 08-07-2024 Plan of care note Problem: Knowledge [...] Interventions Goal: Assess Nutritional Intake Outcome: Progressing [facility] 08-07-2024 Note Formatting of this n ote might be different from the original. Case Management Progress Note: Patient remains on 5N for concern with aspiration 2/2 vomiting. Discharge Plan: Return to [facility]. Therapy eval needed for precert. TCC to assist and follow as needed. [facility] 08-07-2024 Note Formatting of this n ote might be different from the original. Case Management Progress Note: Patient remains on 5N for concern with aspiration 2/2 vomiting. Discharge Plan: Return to [facility]. Therapy eval needed for precert. TCC to assist and follow as needed. [facility] 08-07-2024 Plan of care note Problem: [...] Interventions Goal: Assess Nutritional Intake Outcome: Progressing [facility] 08-06-2024 Plan of care note Problem: [...] Interventions Goal: Assess Nutritional Intake Outcome: Progressing [facility] 08-06-2024 Note Formatting of this n ote might be different from the original. Pt cont's on IV AtBs'. Plan is for pt to return to [facility]. Auth and HECTOR needed prior to DC. CM to follow. [facility] 08-06-2024 Note Formatting of this n ote might be different from the original. Pt cont's on IV AtBs'. Plan is for pt to return to [facility]. Auth and HECTOR needed prior to DC. CM to follow. [facility] 08-06-2024 Note Formatting of this n ote might be different from the original. Per attending pt ready for DC. Pt will return to [facility]. Pt needs PT/OT to start auth Therapy to see put in for alistair so auth can be started. HECTOR will need completed. CM to follow. [facility] 08-06-2024 Note Formatting of this n ote might be different from the original. Per attending pt ready for DC. Pt will return to [facility]. Pt needs PT/OT to start auth Therapy to see put in for alistair so auth can be started. HECTOR will need completed. CM to follow. [facility] 08-06-2024 Consult note Associated Order (s): IP [...] assess Fluid Accumulation: No significant fluid accumulation Overlock Sewing Machine Operator Strength: Not Performed Nutrition Assessment: Pt hx HTN, stroke, COPD, CKD, IBS. Admitted w/ vomiting and diarrhea. +norovirus. Started on abx for concern of aspiration pna. Pt's symptoms have improved during admission. Consuming and tolerating CLD. Medically stable for discharge back to SNF per notes. Estimated Daily Nutrient Needs: Energy Requirements Based On: Kcal/kg Weight Used for Energy Requirements: [place] Weight for Energy Calculation (kg): 54 kg Total Energy Requirements (kcals/day): 4944-0894 Weight Used for Protein Requirements: [place] Weight in Kg Used for Protein Requirements: [...] 160# 07/05) % Weight Change (Calculated): 12.2 [place] Body Weight (lbs) (Calculated): 119 lbs [place] Body Weight (Kg) (Calculated): 54 kg BMI [...] to determine Gabriella Michelle RD, LD Contact: [phone] [facility] 08-06-2024 Consult note Associated Order (s): [...] assess Fluid Accumulation: No significant fluid accumulation Overlock Sewing Machine Operator Strength: Not Performed Nutrition Assessment: Pt hx HTN, stroke, COPD, CKD, IBS. Admitted w/ vomiting and diarrhea. +norovirus. Started on abx for concern of aspiration pna. Pt's symptoms have improved during admission. Consuming and tolerating CLD. Medically stable for discharge back to SNF per notes. Estimated Daily Nutrient Needs: Energy Requirements Based On: Kcal/kg Weight Used for Energy Requirements: [place] Weight for Energy Calculation (kg): 54 kg Total Energy Requirements (kcals/day): 8357-4525 Weight Used for Protein Requirements: [place] Weight in Kg Used for Protein Requirements: [...] 160# 07/05) % Weight Change (Calculated): 12.2 [place] Body Weight (lbs) (Calculated): 119 lbs [place] Body Weight (Kg) (Calculated): 54 kg BMI [...] to determine Gabriella Michelle RD, LD Contact: [phone] documented in this encounter [facility] 08-06-2024 Plan of care note Problem: Knowledge Deficit Goal: Patient/family/caregiver demonstrates understanding of disease process, treatment plan, medications, and discharge instructions Outcome: Progressing Problem: Potential for Compromised Skin Integrity Goal: Skin Integrity is Maintained or Improved Outcome: Progressing Goal: Nutritional status is improving Outcome: Progressing Problem: Urinary Incontinence Goal: Perineal skin integrity is maintained or improved Outcome: Progressing [facility] 08-05-2024 Plan of care note Problem: Knowledge Deficit Goal: Patient/family/caregiver demonstrates understanding of disease process, treatment plan, medications, and discharge instructions Outcome: Progressing Problem: Potential for Compromised Skin Integrity Goal: Skin Integrity is Maintained or Improved Outcome: Progressing Goal: Nutritional status is improving Outcome: Progressing Problem: Urinary Incontinence Goal: Perineal skin integrity is maintained or improved Outcome: Progressing [facility] 08-04-2024 Plan of care note Problem: Knowledge Deficit Goal: Patient/family/caregiver demonstrates understanding of disease process, treatment plan, medications, and discharge instructions Outcome: Progressing Problem: Potential for Compromised Skin Integrity Goal: Skin Integrity is Maintained or Improved Outcome: Progressing Goal: Nutritional status is improving Outcome: Progressing Problem: Urinary Incontinence Goal: Perineal skin integrity is maintained or improved Outcome: Progressing [facility] 08-04-2024 Nurse Note Bedside swallow completed. Pt passed and tolerated well tolerated well. [facility] 08-04-2024 Plan of care note Problem: Knowledge Deficit Goal: Patient/family/caregiver demonstrates understanding of disease process, treatment plan, medications, and discharge instructions Outcome: Progressing Problem: Potential for Compromised Skin Integrity Goal: Skin Integrity is Maintained or Improved Outcome: Progressing Goal: Nutritional status is improving Outcome: Progressing Problem: Urinary Incontinence Goal: Perineal skin integrity is maintained or improved Outcome: Progressing [facility] 08-03-2024 Plan of care note Problem: Knowledge [...] 0842 by Lima Saenz RN Outcome: Progressing [facility] 08-03-2024 Note Formatting of this n ote might be different from the original. Return referral placed to [facility] via Careport per TCC request. Await review and response regarding ability to accept. TCC notified. [facility] 08-03-2024 Note Formatting of this n ote might be different from the original. Return referral placed to [facility] via Careport per TCC request. Await review and response regarding ability to accept. TCC notified. [facility] 08-03-2024 Note Return referral plac ed to [facility] via Careport per TCC request. Await review and response regarding ability to accept. TCC notified. [facility] 08-03-2024 Note Formatting of this n ote might be different from the original. Pt to ED w N/V/Diarrhea, was Dx w Aspiration pneumonitis. Started on IV ATB's. Called pt's Keithr, Fidel, . Pt is from [facility]. Plan on returning. [facility] tasked to send a return referral. [facility] 08-03-2024 Note Formatting of this n ote might be different from the original. Pt to ED w N/V/Diarrhea, was Dx w Aspiration pneumonitis. Started on IV ATB's. Called pt's Dtr, Fidel, . Pt is from [facility]. Plan on returning. [facility] tasked to send a return referral. [facility] 08-03-2024 History and physical note Attending History and Physical Admit Date: 08/03/2024 PCP: Jared Evans MD CHIEF COMPLAINT: vomiting/diarrhea Reason for Admission: aspiration pneumonitis History Obtained From: patient HISTORY OF PRESENT ILLNESS: Mel is a 83 y.o. female with past medical history below who presents with chief complaint listed above.Patient is an 83 y/o female who presented to [place] [facility] early this AM [place] for vomiting and diarrhea. Patient reported she [...] kidney disease COPD (chronic obstructive pulmonary disease) ([facility]) DVT (deep venous thrombosis) ([facility]) Essential hypertension 03/07/2020 GERD (gastroesophageal reflux disease) [...] (06/20/2024) Received from [facility] Medical Overall Financial Resource Strain (CARDIA) Difficulty [...] min Stress: Patient Unable To Answer (08/03/2024) [facility] [place] [facility] [employer] [facility] - Occupational Stress Questionnaire Feeling of Stress : Patient unable to answer Social Connections: Unknown (08/03/2024) Social Connection and Isolation Panel [NHANES] Frequency of Communication with Friends and Family: Patient unable to answer Frequency of Social Gatherings with Friends and Family: Patient unable to answer Attends Tenriism Services: Patient unable to answer Active Member of Clubs or Organizations: Patient unable to answer Attends Club or Organization Meetings: Never Marital Status: Patient unable to answer Recent Concern: Social Connections - Moderately Isolated (06/20/2024) Received from [facility] Medical Social Connection and Isolation Panel [NHANES] Frequency of Communication with Friends and Family: More than three times a week Frequency of Social Gatherings with Friends and Family: Once a week Attends Tenriism Services: More than 4 times per year [...] mgmt was pursued: - inpatient admission to [facility] tele - check stool studies and cdiff, [...] - DO NOT do CPR, intubation] [_] [DNR-ENTERPRISE SYSTEMS ENGINEER - Comfort care only] [_] DNR form [...] Shivani Dimas PA-C Division of Hospitalist Medicine [facility] Cosigned by Abbi Long DO at 08/03/2024 [...] sounds present no guarding or regular rigidity [employer] Work Phone: 08-03-2024 Note [employer] tem [facility] 08-03-2024 History and physical note Attending History and Physical Admit Date: 08/03/2024 PCP: Jared Evans MD CHIEF COMPLAINT: vomiting/diarrhea Reason for Admission: aspiration pneumonitis History Obtained From: patient HISTORY OF PRESENT ILLNESS: Mel is a 83 y.o. female with past medical history below who presents with chief complaint listed above.Patient is an 83 y/o female who presented to [place] [facility] early this AM [place] for vomiting and diarrhea. Patient reported she [...] (06/20/2024) Received from [facility] Overall Financial Resource Strain (CARDIA) Difficulty [...] min Stress: Patient Unable To Answer (08/03/2024) [facility] [place] [facility] [employer] - Occupational Stress Questionnaire Feeling of Stress : Patient unable to answer Social Connections: Unknown (08/03/2024) Social Connection and Isolation Panel [NHANES] Frequency of Communication with Friends and Family: Patient unable to answer Frequency of Social Gatherings with Friends and Family: Patient unable to answer Attends Tenriism Services: Patient unable to answer Active Member of Clubs or Organizations: Patient unable to answer Attends Club or Organization Meetings: Never Marital Status: Patient unable to answer Recent Concern: Social Connections - Moderately Isolated (06/20/2024) Received from [facility] Social Connection and Isolation Panel [NHANES] Frequency of Communication with Friends and Family: More than three times a week Frequency of Social Gatherings with Friends and Family: Once a week Attends Tenriism Services: More than 4 times per year [...] mgmt was pursued: - inpatient admission to [facility] tele - check stool studies and cdiff, [...] - DO NOT do CPR, intubation] [_] [DNR-ENTERPRISE SYSTEMS ENGINEER - Comfort care only] [_] DNR form [...] Shivani Dimas PA-C Division of Hospitalist Medicine [facility] Cosigned by Abbi Long DO at 08/03/2024 2:29 PM EST Associated attestation - Abbi Long DO - 08/03/2024 2:29 PM EST Patient seen evaluated a separate encounter Rn guilhermeomba at bedside patient reported large episode of [...] or regular rigidity documented in this encounter [facility] 08-03-2024 Plan of care note Problem: Potential for Compromised Skin Integrity Goal: Skin Integrity is Maintained or Improved 08/03/2024 0842 by Lima Saenz RN Outcome: Progressing 08/03/2024 0842 by Lima Saenz RN Outcome: Progressing Problem: Potential for Compromised Skin Integrity Goal: Nutritional status is improving 08/03/2024 0842 by Lima Saenz RN Outcome: Progressing 08/03/2024 0842 by Lima Saenz RN Outcome: Progressing [facility] 08-03-2024 Plan of care note Problem: Knowledge Deficit Goal: Patient/family/caregiver demonstrates understanding of disease process, treatment plan, medications, and discharge instructions Outcome: Progressing Problem: Potential for Compromised Skin Integrity Goal: Skin Integrity is Maintained or Improved Outcome: Progressing [facility] 08-03-2024 Emergency department Note Pt placed in [facility] 08-03-2024 Emergency department Note Pt placed in [...] who presents to the emergency department from [facility] for acute onset nausea/vomiting/diarrhea x 3 episodes that began 45 minutes prior to arrival. No blood in emesis or diarrhea. Given single dose of Zofran by halfway staff following first episode but subsequently soon [...] 45 minutes prior to ED transport for halfway. [facility] reports a second resident with similar symptoms earlier today. No known flu or COVID exposures. Patient denying other flu or COVID symptoms such as headache, myalgias, fevers, congestion, cough. Nursing Notes were reviewed. Limitations to history: None Outside historians: [facility] staff (Jabari) REVIEW OF SYSTEMS Review of [...] (06/20/2024) Received from [facility] Overall Financial Resource Strain (CARDIA) Difficulty of Paying Living Expenses: Not very hard Food Insecurity: No Food Insecurity (07/09/2024) Received from [facility] Hunger Vital Sign Worried About Running Out of Food in the Last Year: Never true Ran Out of Food in the Last Year: Never true Transportation Needs: No Transportation Needs (07/09/2024) Received from [facility] PRAPARE - Transportation Lack of Transportation (Medical): No Lack of Transportation (Non-Medical): No Physical Activity: Inactive (04/04/2024) Exercise Vital Sign Days of Exercise per Week: 0 days Minutes of Exercise per Session: 0 min Stress: No Stress Concern Present (06/19/2024) Received from [facility] [place] of Occupational Health - Occupational Stress Questionnaire Feeling of Stress : Not at all Social Connections: Moderately Isolated (06/20/2024) Received from [facility] Social Connection and Isolation Panel [NHANES] Frequency of Communication with Friends and Family: More than three times a week Frequency of Social Gatherings with Friends and Family: Once a week Attends Tenriism Services: More than 4 times per year Active Member of Clubs or Organizations: No Attends Club or Organization Meetings: Never Marital Status: Intimate Partner Violence: Not At Risk (06/19/2024) Received from [facility] Domestic Abuse Assessment Do you feel safe in your relationships at home?: Yes Physical Abuse: Denies Verbal Abuse: Denies Housing Stability: Low Risk (07/09/2024) Received from [facility] Housing Stability Vital Sign Unable to Pay [...] In compliance with this authorization, please visit www.fda.gov/media/401683/download or www.fda.gov/media/643464/download to access the applicable information sheets. LIPASE [...] who presents to the emergency department from [facility] for acute onset nausea/vomiting/diarrhea x 3 episodes that began 45 minutes prior to arrival. No blood in emesis or diarrhea. Given single dose of Zofran by halfway staff following first episode of emesis but [...] 45 minutes prior to ED transport for halfway. [facility] reports a second resident with similar symptoms [...] baseline. Patient admitted to medical service at [facility] under Dr. Parrish. ED Medications managed: Medications ondansetron (Zofran) injection 4 mg (4 mg IntraVENous Given 08/03/24254) famotidine (Pepcid) 20 mg in sodium chloride (PF) 0.9 % 10 mL injection (20 mg IntraVENous Given 08/03/24254) morphine injection 2 mg (2 mg IntraVENous Given 08/03/24254) promethazine (Phenergan) injection 25 mg (25 mg IntraMUSCular Given 08/03/24 0406) FINAL IMPRESSION 1. Aspiration pneumonitis (CMS/HCC) ([facility]) 2. Vomiting and diarrhea 3. LORENZA (acute kidney injury) ([facility]) DISPOSITION Observation 08/03/2024 04:20:39 AM PATIENT REFERRED [...] DO 08/03/24 0422 documented in this encounter [facility] 08-03-[address] ED CT and ED xray notified that patient is ready [facility] 08-03-2024 Physician Emergency department Note EMERGENCY DEPARTMENT [...] who presents to the emergency department from [facility] for acute onset nausea/vomiting/diarrhea x 3 episodes that began 45 minutes prior to arrival. No blood in emesis or diarrhea. Given single dose of Zofran by halfway staff following first episode but subsequently soon [...] 45 minutes prior to ED transport for halfway. [facility] reports a second resident with similar symptoms earlier today. No known flu or COVID exposures. Patient denying other flu or COVID symptoms such as headache, myalgias, fevers, congestion, cough. Nursing Notes were reviewed. Limitations to history: None Outside historians: [facility] staff (Jabari) REVIEW OF SYSTEMS Review of [...] (06/20/2024) Received from [facility] Overall Financial Resource Strain (CARDIA) Difficulty of Paying Living Expenses: Not very hard Food Insecurity: No Food Insecurity (07/09/2024) Received from [facility] Hunger Vital Sign Worried About Running Out of Food in the Last Year: Never true Ran Out of Food in the Last Year: Never true Transportation Needs: No Transportation Needs (07/09/2024) Received from [facility] PRAPARE - Transportation Lack of Transportation (Medical): No Lack of Transportation (Non-Medical): No Physical Activity: Inactive (04/04/2024) Exercise Vital Sign Days of Exercise per Week: 0 days Minutes of Exercise per Session: 0 min Stress: No Stress Concern Present (06/19/2024) Received from [facility] [place] of Occupational Health - Occupational Stress Questionnaire Feeling of Stress : Not at all Social Connections: Moderately Isolated (06/20/2024) Received from [facility] Social Connection and Isolation Panel [NHANES] Frequency of Communication with Friends and Family: More than three times a week Frequency of Social Gatherings with Friends and Family: Once a week Attends Tenriism Services: More than 4 times per year Active Member of Clubs or Organizations: No Attends Club or Organization Meetings: Never Marital Status: Intimate Partner Violence: Not At Risk (06/19/2024) Received from [facility] Domestic Abuse Assessment Do you feel safe in your relationships at home?: Yes Physical Abuse: Denies Verbal Abuse: Denies Housing Stability: Low Risk (07/09/2024) Received from [facility] Housing Stability Vital Sign Unable to Pay [...] In compliance with this authorization, please visit www.fda.gov/media/681340/download or www.fda.gov/media/305084/download to access the applicable information sheets. LIPASE [...] who presents to the emergency department from [facility] for acute onset nausea/vomiting/diarrhea x 3 episodes that began 45 minutes prior to arrival. No blood in emesis or diarrhea. Given single dose of Zofran by halfway staff following first episode of emesis but [...] 45 minutes prior to ED transport for halfway. [facility] reports a second resident with similar symptoms [...] baseline. Patient admitted to medical service at [facility] under Dr. Parrish. ED Medications managed: [...] 0406) FINAL IMPRESSION 1. Aspiration pneumonitis (CMS/HCC) ([facility]) 2. Vomiting and diarrhea 3. LORENZA (acute kidney injury) ([facility]) DISPOSITION Observation 08/03/2024 04:20:39 AM PATIENT REFERRED [...] Medicine Provider Mariana King DO 08/03/24 0422 [facility] 08-01-2024 Instructions Savana Lopez MD - 08/01/2024 1:06 PM EST - Continue Pred forte 4x / day right eye - Stop Cipro - Stop Brimonidine - Continue erythromycin antibiotic ointment as needed - Continue Atropine daily RIGHT eye - Continue Timolol 2x / day RIGHT EYE documented in this encounter [facility] 08-01-2024 Note HNO ID: [id number] Author: SAVANA LOPEZ MD Service: ? Author [...] agree with all of its relevant components. 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 documented in this encounter [facility] 07-30-2024 Note HNO ID: [id number] Author: JOHN PHELAN MD Service: ? Author [...] agree with all of its relevant components. [facility] 07-30-2024 Note HNO ID: [id number] Author: JOHN PHELAN MD Service: ? Author [...] agree with all of its relevant components. [facility] 07-27-2024 Instructions Nicolas Sahu MD - [...] day Ciprofloxacin (flores cap) 4x daily Atropine (acute care registered nurse) 1x daily Continue timolol (yellow cap) 2x [...] C Trouble breathing Contact Dr. Savana Lopez [phone] from 8am-5pm During non-business hours, please call [phone] or ext [phone] and ask for the eye doctor patient registration supervisor. documented in this encounter [facility] 07-27-2024 Note HNO ID: [id number] Author: NICOLAS SAHU MD Service: ? Author [...] scheduled Nicolas Sahu MD Vitreoretinal Surgery Fellow [facility] 07-27-2024 History of Present illness Narrative [...] Vitreoretinal Surgery Fellow documented in this encounter [facility] 07-27-2024 Note HNO ID: [id number] Author: MIKHAIL NICHOLS APRN.PERFORMANCE TEST CONSULTANT Service: ? Author Type: Nurse Glass Inspector Type: Anesthesia Procedure Notes Filed: 07/27/2024 11:25 Note Text: ANESTHESIOLOGY PROCEDURE NOTE Airway General Information Procedure Start Time/Medication Administration: 07/27/2024 11:21 AM Procedure End Time: 07/27/2024 11:24 AM Staffing Anesthesiologist: Robinson Brunner MD PERFORMANCE TEST CONSULTANT: Mikhail Nichols APRN.PERFORMANCE TEST CONSULTANT Performed by: anesthesiologist and PERFORMANCE TEST CONSULTANT Indications and Patient Condition Indications for airway management: anesthesia Preoxygenated: yes Patient position: sniffing Method: asleep Final Airway Details Final airway type: supraglottic airway Number of attempts at approach: 1 Final Supraglottic Airway: LMA Classic Size 4 Seal Adequate: yes Failed airway: no Unrecognized esophageal intubation: no SIGNATURE: Mikhail Nichols APRN.PERFORMANCE TEST CONSULTANT PATIENT NAME: Mel Castillo DATE: July 27, 2024 TIME: 11:24 AM CSN: [id number] [facility] 07-24-2024 Note Date of Procedure 07/23/2024. Cement Storage Worker Information Map Compiler: WESLEY. Start time: 10:44 AM. No view. In wheelchair. Unable to get low enough for photo in downgaze without discomfort. Notes Hazy view, VH; choroidals; possible RD ZEISS 07-24-2024 Note Date of Procedure 07/23/2024. Cement Storage Worker Information STEWART Donovan CDMARVIN 07/23/2024 11:24 AM [...] 20mg - Decrease atropine daily right eye (acute care registered nurse) - Continue prednisolone QID right eye (pink [...] 30 days before your surgery. My surgical scrub tech will be contacting you to schedule this appointment. Your exact time of surgery will not be determined until the day before surgery. My surgical scrub tech will call you the day before your surgery to advise you what time to arrive at the [facility] on the first floor at the [facility] [employer] [facility] [place]. My surgical scrub tech is Gaston, her number is [phone] Please do no wear contact lenses. We [...] retina fellow. It will be at the [facility] on the 2nd floor. We will [...] Regine Gan in the Pre-anesthesia Consultation Clinic ([phone]) to get instructions on their use before [...] call Regine Gan or a Pre-Anesthesia Testing housekeeping and laundry team leader at [phone]. documented in this encounter [facility] 07-23-2024 Note HNO ID: [id number] Author: SAVANA LOPEZ MD Service: ? Author [...] choroidals (not yet appositional) - Evaluated at [employer] 07/12/24 with intense nausea and multiple episodes [...] to HTN (SBP 199/99 at presentation to [facility]) and anticoagulation that led to angle closure [...] agree with all of its relevant components. [facility] 07-23-2024 History of Present illness Narrative [...] to HTN (SBP 199/99 at presentation to [facility] [facility]) and anticoagulation that led to angle closure [...] its relevant components. documented in this encounter [facility] 07-18-2024 Note HNO ID: [id number] Author: JACI JUAREZ, RADHA Service: Nursing Author Type: Registered Nurse Type: Progress Notes Filed: 07/18/2024 14:08 Note Text: Report given to nurse at [facility]. Transport running behind schedule. [facility] 07-16-2024 Note HNO ID: [id number] Author: MICHAEL SOARES MD Service: Ophthalmology Author Type: Resident Type: Plan of Care Filed: 07/16/2024 21:02 Note Text: Patient evaluated today at [facility] [place] by retina attending Dr. Lopez. Assessment/plan copied [...] choroidals (not yet appositional) - Evaluated at [employer] 07/12/24 with intense nausea and multiple episodes [...] be admitted for this but may need correction facility due to limited vision in her monocular eye; she has a very poor prognosis; there is no guarantee surgery will improve her vision but need to wait for any possible surgery for more liquefaction; maybe could do 07/31/24? - I will see her in 1 week for repeat B-scan OD / Optos OD" [facility] 07-16-2024 Note HNO ID: [id number] Author: ALAINA TIPTON, RN Service: ? Author Type: Registered Nurse Type: Progress Notes Filed: 07/16/2024 19:27 Note Text: At 15:00 PM, Per Doctor Josep, place connector to Call Light for the patient. Clip placed onto the Call Light for patient to reach. Sign placed onto the patient's door to set patient up to eat, and assist feed. Doctor Samk, on the division, and aware. [facility] 07-16-2024 Note HNO ID: [id number] Author: TRACEY NANCE RN Service: Care Management Author Type: Registered Nurse Type: Care Mgt Progress Note Filed: 07/16/2024 16:49 Note Text: CARE MANAGEMENT PROGRESS NOTE SERVICE DATE: 07/16/2024 SERVICE TIME: 1:04 PM LOS: 9 days Post-Acute Discharge Planning Patient Goal(s): Increase strength [place] of Choice Explained: Discharge Planning Participant(s): Patient/Family Comments: Anticipated # of Days Until Discharge: 0 Transport at Discharge: Needs Prior to Discharge: Needs Prior to Discharge: OT/PT Evaluation Post-Acute Discharge Plan: Discharge to [facility] per [facility]OC. Await updated PT for pre cert initiation. SIGNATURE: Tracey Nance RN PATIENT NAME: Mel Castillo DATE: July 16, 2024 TIME: 1:04 PM [facility] 07-16-2024 Note Date of Procedure 07/16/2024. Cement Storage Worker Information Map Compiler: Arin Vital. Start time: 8:56 AM. Stop time: 8:56 AM. Notes OD only; Hard view [address] [facility] 07-16-2024 Note Date of Procedure 07/16/2024. Cement Storage Worker Information STEWART Donovan 07/16/2024 9:34 AM . [...] choroidals (not yet appositional) - Evaluated at [employer] 07/12/24 with intense nausea and multiple episodes [...] be admitted for this but may need correction facility due to limited vision in her [...] its relevant components. documented in this encounter [facility] 07-16-2024 Note HNO ID: [id number] Author: SAVANA LOPEZ MD Service: ? Author [...] choroidals (not yet appositional) - Evaluated at [employer] 07/12/24 with intense nausea and multiple episodes [...] to HTN (SBP 199/99 at presentation to [facility] [facility]) and anticoagulation that led to angle closure [...] be admitted for this but may need correction facility due to limited vision in her [...] of its relev (more content not included)... [facility] 07-16-2024 Note HNO ID: [id number] Author: BRIANA PRITCHARD MD Service: General Internal Medicine Author Type: Physician Type: Progress Notes Filed: 07/16/2024 14:26 Note Text: Internal Medicine - Dae Chaudhry Progress Note Patient Name: Mel Castillo [address] Admission Date: 07/07/2024 Length of Stay: 9 Primary Service: DAE Chaudhry Staff: Briana Pritchard MD Primary Service: Dae Chaudhry INTERVAL HISTORY: - No acute events overnight. Bradycardic to 50s overnight but this AM HDS and afebrile - This AM seen by ophthalmology at [facility] Opt appointment Objective MEDICATIONS: Current Facility-Administered [...] Drain Duration External Collection Device 07/15/24 1000 [facility] <1 day Intake/Output 07/12/24 0700 - 07/13/24 [...] PMH of COPD (more content not included)... [facility] 07-15-2024 Note HNO ID: [id number] Author: OTILIO GERBER MD Service: Ophthalmology Author [...] [facility] - Post-op precautions reviewed, including: Signs and symptoms of endophthalmitis, and retinal detachment warning signs reviewed, including increasing floaters, flashes or changes in peripheral vision. [facility] 07-15-2024 Note HNO ID: [id number] Author: BRIANA PRITCHARD MD Service: General Internal Medicine Author Type: Physician Type: Progress Notes Filed: 07/15/2024 12:59 Note Text: Internal Medicine - Dae Chaudhry Progress Note Patient Name: Mel Castillo Patient Location: [place] [address]/[id number] Admission Date: 07/07/2024 Length of Stay: 8 [...] 92 No data recorded SpO2: 98 % (12/29/24 0433) SpO2 Min: 95 % Max: 99 % [...] 9.1 9.3 9.3 (more content not included)... [facility] 07-14-2024 Note HNO ID: [id number] Author: BRIANA PRITCHARD MD Service: Hospital Medicine Author Type: Physician Type: Progress Notes Filed: 07/14/2024 13:37 Note Text: Internal Medicine - Dae Chaudhry Progress Note Patient Name: Mel Castillo [address] Admission Date: 07/07/2024 Length of Stay: 7 [...] Castillo is a (more content not included)... [facility] 07-14-2024 Note HNO ID: [id number] Author: NICOLAS SAHU MD Service: Ophthalmology Author [...] choroidals (not yet appositional) - Evaluated at [employer] 07/12/24 with intense nausea and multiple episodes [...] to HTN (SBP 199/99 at presentation to [facility] [facility]) that caused angle closure and elevated IOP [...] vision. Nicolas Sahu MD Vitreoretinal Surgery Fellow [facility] 07-13-2024 Note HNO ID: [id number] Author: MARCIA MARTINS APRN.PERFORMANCE TEST CONSULTANT Service: ? Author Type: Nurse Glass Inspector Type: Anesthesia Procedure Notes Filed: 07/13/2024 12:43 Note Text: ANESTHESIOLOGY PROCEDURE NOTE Airway General Information Procedure Start Time/Medication Administration: 07/13/2024 12:28 PM Procedure End Time: 07/13/2024 12:42 PM Patient location during procedure: OR Timeout Performed Pre-procedure: timeout performed Consent Obtained: Yes Patient identity confirmed: arm band, care housekeeping and laundry team leader and patient Staffing PERFORMANCE TEST CONSULTANT: Marcia Martins APRN.PERFORMANCE TEST CONSULTANT Performed by: PERFORMANCE TEST CONSULTANT Indications and Patient Condition Indications for airway management: anesthesia Preoxygenated: yes anesthesia circuit Method: sleep Difficult Mask: No Final Airway Details Final airway type: supraglottic airway Number of attempts at approach: 1 Final Supraglottic Airway: Supraglottic airway: ambu auraonce. Size 4 Seal Adequate: yes Failed airway: no Unrecognized esophageal intubation: no Airway not difficult Comments atraumatic SIGNATURE: Marcia Martins APRN.PERFORMANCE TEST CONSULTANT PATIENT NAME: Mel Castillo DATE: July 13, 2024 TIME: 12:42 PM CSN: [id number] [facility] 07-13-2024 Note HNO ID: [id number] Author: FELICIA LEVY MD Service: General Internal [...] of vision now s/p laser iridotomy at [facility] [facility] then trasnferred to [facility] for further management. S/p multiple peripheral [...] Note Patient Name: Mel Castillo [address] Admission Date: 07/07/2024 Length of Stay: 6 [...] mg ORAL DAILY (more content not included)... [facility] 07-12-2024 Note HNO ID: [id number] Author: TRACEY NANCE RN Service: Care Management Author Type: Registered Nurse Type: Care Mgt Progress Note Filed: 07/12/2024 16:50 Note Text: CARE MANAGEMENT PROGRESS NOTE SERVICE DATE: 07/12/2024 SERVICE TIME: 4:46 PM LOS: 5 days Post-Acute Discharge Planning Patient Goal(s): Increase strength [place] of Choice Explained: Discharge Planning Participant(s): Patient/Family Comments: Anticipated # of Days Until Discharge: 0 Transport at Discharge: Needs Prior to Discharge: Post-Acute Discharge Plan: Await SNF choices spoke w/ daughter in law Fidel Garcia sent to [facility] yesterday. This CM reached out to [facility] via email for choices. Daughter In law cannot recall selections. covering CM will need to reach out to [employer] tomorrow for selections that were emailed to her. SIGNATURE: Tracey Nance RN PATIENT NAME: Mel Castillo DATE: July 12, 2024 TIME: 4:46 PM [facility] 07-12-2024 Note Date of Procedure 07/12/2024. Cement Storage Worker Information CHAR Veliz ROUB 07/12/2024 12:15 PM . Notes B scan OD: From wheelchair. Patient vomiting during this visit. Best images possible. 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 Possible increased height maximum now at 12:00 measuring 10.0 mm. 2) Not able to assess for mobility today due to patient discomfort 3) SRF over choroidals in three quadrants. [facility] 07-12-2024 Note Date of Procedure 07/12/2024. Cement Storage Worker Information Map Compiler: JACQUELINE. Imaging Comments: Limited exam due to patient discomfort-best images possible . Notes Worsening choroid detachments [facility] 07-12-2024 Note HNO ID: [id number] Author: THOMAS SCHMITZ MD Service: ? Author [...] choroidals (not yet appositional) - Evaluated at [employer] 07/12/24 with intense nausea and multiple episodes [...] to HTN (SBP 199/99 at presentation to [facility] [facility]) that caused angle closure and elevated IOP [...] Resident, PGY-[address] Phelan [facility] 07-12-2024 History of Present illness Narrative [...] choroidals (not yet appositional) - Evaluated at [employer] 07/12/24 with intense nausea and multiple episodes [...] to HTN (SBP 199/99 at presentation to [facility] [facility]) that caused angle closure and elevated IOP [...] with Dr. Phelan documented in this encounter [facility] 07-12-2024 Note HNO ID: [id number] Author: FELICIA LEVY MD Service: General Internal [...] of vision now s/p laser iridotomy at [place] [facility] then trasnferred to [facility] for further management. S/p multiple peripheral [...] possible dispo to SNF or home with [facility] (challenging given multiple daily eye drops [...] ORAL BID HYDROmorpho (more content not included)... [facility] 07-11-2024 Note HNO ID: [id number] Author: FELICIA LEVY MD Service: General Internal [...] of vision now s/p laser iridotomy at [place] then trasnferred to [facility] for further management. S/p multiple peripheral [...] H PRN AL (more content not included)... [facility] 07-10-2024 Note HNO ID: [id number] Author: FELICIA LEVY MD Service: General Internal [...] of vision now s/p laser iridotomy at [place] then trasnferred to [facility] for further management. S/p multiple peripheral [...] Range in last (more content not included)... [facility] 07-09-2024 Note HNO ID: [id number] Author: TRACEY NANCE RN Service: Care Management [...] Current Advance Directive: Health Care Power of Management Supervisor In Chart: Yes Up To Date and Valid: Yes Current Living Arrangements and Support Lives with: Alone Type of Residence: Mobile Home Support: Friends/neighbors, Family members How do you manage to accomplish the following: Independent: Ambulation;Bathe/Shower;Dress;Angélica g to the bathroom Needs Assistance: Meals/Meal Prep;Medication Management;Transportation to appointments/community Current Services/Equipment Discharge Planning Patient Goal(s): Increase strength [place] of Choice Explained: [place] of Choice Given: Yes Level of Care Discussed: Home Care Are you interested in bedside delivery of your medications? Yes Discharge Planning Participant(s): Caregiver;Family Patient/Family Comments: Fidel Hdez (Other) Caregiver Assessment: Caregiver is ready, willing and able to meet the patient's needs as recommended by the inter-professional team: (friends) Transport at Discharge: Transportation Arrangements: Car Destination: [id number] [facility] [id number] Needs Prior to Discharge: Post-Acute Discharge Plan: Anticipate DC home with [facility] 24-48 hours. HC referrals placed . Await OT evaluation. Patient lives alone in trailer , There are 4 steps to entrance, Using rolator prior to admission. Patient independent with ADL and assist with iADL prior to admission.Patient receives meals on wheels. Family transport to appointments and can provide parts facilitator assist. Family transport home. This CM spoke [...] DATE: July 09, 2024 TIME: 4:07 PM [facility] 07-09-2024 Note HNO ID: [id number] Author: NADIA VIDAL ? Service: Pharmacy Author Type: Domestic Freight Forwarder Type: Plan of Care Filed: 07/09/2024 12:31 Note Text: Insurance investigation completed Patient has active prescription insurance: Yes - Patient's insurance is in-network with F Insurance loaded into [place]: Yes Test claim was completed to verify insurance is active: Successful Any questions, please reach out to your medication community marketing coordinator. [facility] 07-09-2024 Note HNO ID: [id number] Author: GISSELL POPE RPh Service: Pharmacy Author Type: Pharmacist Type: Plan of Care Filed: 07/09/2024 12:32 Note Text: PHARMACY MEDICATION REVIEW Patient Name: Mel Castillo : 1940 The following medications were updated within the 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 medication list: Medications ADDED to 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 medication list Furosemide 40 mg prn swelling Medications CHANGED on 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 medication list Lisinopril 10 mg changed to 40 mg Increased from 5 mg daily to 40 mg daily on last hospital discharge Medications REMOVED from 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 medication list Albuterol HFA PRN Lidocaine 4% [...] Yes Completed by: Gissell Pope RPh All 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 medications addressed by LIP Patient interested in Bedside Delivery Services or using CC OP Pharmacy at discharge? Yes. Discharge Pharmacy Updated Preferred outpatient pharmacy: e- [facility]/pharmacy #[id number] [place] [address] [phone] [facility] [phone] [place] [address] [facility] Allergies: Percocet [Oxycodone* Itching Prior [...] Inject 0.7 mL subcutaneously every 12 hours. zywcemnxkxw-xcagtcuaf-davnzfjb (TRELEGY ELLIPTA) 100-62.5-25 mcg inhalation powder 07/06/2024 [...] (MYDRIACYL) None recorded 1 Gissell Pope [facility] 07/09/2024 [facility] 07-09-2024 Note HNO ID: [id number] Author: OTILIO GERBER MD Service: ? Author [...] to HTN (SBP 199/99 at presentation to [facility]) that caused angle closure and elevated IOP [...] Follow up with Dr. Lopez Monday 07/16 [facility] eye clinic -Can continue anticoagulation -Patient [...] Otilio Gerber MD Ophthalmology Resident [facility] Patient seen and discussed with Dr. Phelan [facility] 07-09-2024 History of Present illness Narrative [...] to HTN (SBP 199/99 at presentation to [facility]) that caused angle closure and elevated IOP [...] Follow up with Dr. Lopez Monday 07/16 [facility] eye clinic -Can continue anticoagulation -Patient [...] Otilio Gerber MD Ophthalmology Resident [facility] Patient seen and discussed with Dr. Phelan documented in this encounter [facility] 07-09-2024 Note HNO ID: [id number] Author: FELICIA LEVY MD Service: General Internal [...] of vision now s/p laser iridotomy at [facility] then trasnferred to [facility] for further management. S/p multiple peripheral [...] DAE Chaudhry Staff: Felicia Levy* Primary Service: aDe Chaudhry INTERVAL HISTORY: - Overnight: NAEON. Afebrile, HDS. - Improved, but has ongoing eye pain - burning and throbbing. Improved with dilaudid but does not last long enough. - Per ophtho, okay to discharge from their perspective. Has follow [...] (ml) -2 350 (more content not included)... [facility] 07-08-2024 Note HNO ID: [id number] Author: FELICIA LEVY MD Service: Hospital Medicine [...] of vision now s/p laser iridotomy at [facility] then trasnferred to [facility] for further management. Plan: - Ophthalmology [...] 07/07/24 1853 12 (more content not included)... [facility] 07-07-2024 Note HNO ID: [id number] Author: JARED GILMORE MD Service: ? Author [...] components. Jared Gilmore MD Vitreoretinal Surgery Fellow [facility] 07-07-2024 History of Present illness Narrative [...] with Dr. Gilmore documented in this encounter [facility] 07-07-2024 Note [facility] 07-07-2024 Hospital course Narrative Discharge Summary Hospitalist [...] kidney disease COPD (chronic obstructive pulmonary disease) ([facility]) DVT (deep venous thrombosis) ([facility]) Essential hypertension 03/07/2020 GERD (gastroesophageal reflux disease) Hiatal hernia IBS (irritable bowel syndrome) Pure hypercholesterolemia 03/07/2020 PVD (peripheral vascular disease) ([facility]) Stroke ([facility]) Procedures: multiple peripheral iridotomies Hospital Course: See [...] Ellipta 100-62.5-25 MCG/ACT aerosol powder Generic drug: Wwruxvcjnft-Wqplvjfhr-Nqjxjo STOP taking these medications albuterol 108 (90 [...] ophthalmic solution Recommended Follow-up: Tre Lombardi MD [address] [place] [address] [address] [facility] [phone] Call in 2 month(s) Need follow up in December 2024 for aneurysm surveillence Complexity of Follow up: [] Moderate Complexity: follow up within 7-14 calendar days (10323) [x] Severe Complexity: follow up within 7 calendar days (68675) - after DC from [facility] Follow up [...] DO Division of Hospitalist Medicine Acute care solutions 07/07/2024, 11:08 AM documented in this encounter [facility] 07-07-2024 Nurse Note Report called to [facility]. [facility] 07-07-2024 Nurse Note Report called to [facility]. This RN called Protective Services to try and locate pts lost glasses from 07/05/2024. Glasses that match the description are in lost and found. Will attempt to see if glasses are a match. documented in this encounter [facility] 07-07-2024 Note Formatting of this [...] Length of Stay (Days): 0 GMLOS: 2.3 [facility] 07-07-2024 Note Formatting of this [...] Length of Stay (Days): 0 GMLOS: 2.3 [facility] 07-07-2024 Miscellaneous Notes Care Management Progress Note DC plan - Transfer to CC. Received message from RN who reports pt [...] in mobile home. Consults in progress. Need [facility] to follow - does have pcp [...] is working on this . With staff. [facility] she is agreeable to it if goes home . [employer] Mel F Pop : 1940 Primary Care Physician: Jared Evans MD The patient and/or family/surrogate voluntarily agreed to participate in ACP services. Patient s cognitive capacity: intact Code Status: [ ] [FULL CODE - Continue all advanced life support: CPR,intubation,invasive procedures] [ X ] [DNR-[facility] - DO NOT do CPR, intubation] [_] [DNR-ENTERPRISE SYSTEMS ENGINEER - Comfort care only] [_] DNR form [was/was not] signed Summary of discussion: The patient health care POA/ surrogate is the following: Fidel STAPLETON ([facility]) I answered all the patient/family [...] family/surrogate. Silvio Peres MD [facility] 07/05/2024, 1:18 PM documented in this encounter [facility] 07-07-2024 History of Present illness Narrative Nutrition rescreen completed. Chart reviewed. Patient to be monitored and followed by the diet product technician. Images from the original note were not included. PHYSICAL THERAPY [facility] Initial Evaluation Name/MRN: Mel Pop ([id number]) Evaluation Date: 07/06/2024 Date of : 1940 Admission Date: 07/05/2024 4:21 AM Age: 83 y.o. Room[facility]Bed: [facility] A Discharge Recommendation: Intermediate Facility Equipment Needed: [...] kidney disease COPD (chronic obstructive pulmonary disease) ([facility]) DVT (deep venous thrombosis) ([facility]) Essential hypertension 03/07/2020 GERD (gastroesophageal reflux disease) Hiatal hernia IBS (irritable bowel syndrome) Pure hypercholesterolemia 03/07/2020 PVD (peripheral vascular disease) ([facility]) Stroke ([facility]) Past Surgical History: Past Surgical History: Procedure [...] of deep vessels of proximal lower extremity ([facility]) 04/14/2024 Peripheral arterial disease ([facility]) 04/03/2024 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 ([facility]) 07/27/2023 Bilateral pneumonia 06/16/2022 COVID-19 06/16/2022 Hypothyroidism 06/16/2022 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[facility]) 06/16/2022 Cellulitis 05/18/2022 Nicotine use disorder 05/18/2022 Acute venous embolism and thrombosis of deep vessels of proximal end of right lower extremity (HCC) 04/19/2024 Atrial fibrillation, unspecified type ([facility]) 04/19/2024 Irritable bowel syndrome with diarrhea 03/07/2020 Microscopic hematuria 03/07/2020 Left retinal detachment 03/07/2020 Hyperglycemia 03/07/2020 Osteopenia of left femoral neck 03/07/2020 halfway current use of anticoagulant therapy 03/07/2020 Seasonal allergies 03/07/2020 Chronic renal insufficiency, stage III (moderate) ([facility]) 03/07/2020 Major depression, single episode, in complete remission ([facility]) 03/07/2020 Gastroesophageal reflux disease without esophagitis 03/07/2020 Essential hypertension 03/07/2020 Pure hypercholesterolemia 03/07/2020 Overweight 03/07/2020 Psoriasis 03/07/2020 History of cerebrovascular accident 03/07/2020 Atrial fibrillation ([facility]) 03/07/2020 Chronic obstructive pulmonary disease ([facility]) 03/07/2020 Finger osteomyelitis, right ([facility]) 03/06/2020 Medical Precautions: No active isolations Proper [...] support system of friends and family Active Assistant Oceanographer: Prior Level of Function Prior Level of [...] of Care supervision is transferred to a [facility] Therapy Services Physical Therapist. Goals and/or [...] kidney disease COPD (chronic obstructive pulmonary disease) ([facility]) DVT (deep venous thrombosis) ([facility]) Essential hypertension 03/07/2020 GERD (gastroesophageal reflux disease) Hiatal hernia IBS (irritable bowel syndrome) Pure hypercholesterolemia 03/07/2020 PVD (peripheral vascular disease) ([facility]) Stroke ([facility]) LABS: CBC: Recent Labs 07/05/24 0435 07/06/24 [...] Division of Hospitalist Medicine Acute care Solutions documented in this encounter [facility] 07-06-2024 Nurse Note This RN called Protective Services to try and locate pts lost glasses from 07/05/2024. Glasses that match the description are in lost and found. Will attempt to see if glasses are a match. [facility] 07-06-2024 Telephone encounter Note TELEPHONE ENCOUNTER 07/06/2024 Patient with recent stroke and admitted to [facility] where she was noted to have elevated IOP with retinal detachment of the right eye by consult bureau chief. She has a history of RD in [...] optos OU Ryan Elizondo MD Ophthalmology Resident [facility] Work Phone: 07-06-2024 Miscellaneous Notes TELEPHONE ENCOUNTER 07/06/2024 Patient with recent stroke and admitted to [facility] where she was noted to have elevated IOP with retinal detachment of the right eye by consult bureau chief. She has a history of RD in [...] MD Ophthalmology Resident documented in this encounter [facility] 07-06-2024 Note Formatting of this n ote [...] is working on this . With staff. [facility] she is agreeable to it if goes home . Humouno 07-06-2024 Note Formatting of this n ote might be different from the original. Complicated discharge , live alone, poor vision - PT/OT now ordered- live in mobile home. Consults in progress. Need [facility] to follow - does have pcp [...] is working on this . With staff. [facility] she is agreeable to it if goes home . Humouno 07-06-2024 Consult note Formatting of th is [...] referral to a retinal subspecialist at either [facility] or [facility] for repair of retinal detachment right eye (OD). Continue ophthalmic pressure lowering ophthalmic meds right eye (OD) until seen by retinal subspecialist. [facility] Phone: 07-06-2024 Consult note Formatting of th [...] referral to a retinal subspecialist at either [facility] or [facility] for repair of retinal detachment right [...] days. Associated Order(s): Inpatient consult to Endovascular Neurology--[facility] Inpatient consult to Endovascular Neurology--[facility] Consult performed by: Helga G. Bosz, FILLER SHREDDER - EDUCATION PROGRAM COORDINATOR Consult ordered by: Wm Nunes DO Reason [...] kidney disease, COPD (chronic obstructive pulmonary disease) ([facility]), DVT (deep venous thrombosis) ([facility]), Essential hypertension (03/07/2020), GERD (gastroesophageal reflux disease), Hiatal hernia, IBS (irritable bowel syndrome), Pure hypercholesterolemia (03/07/2020), PVD (peripheral vascular disease) ([facility]), and Stroke ([facility]). She has no past medical history of Cancer ([facility]) ([facility]), Cerebral artery occlusion with cerebral infarction ([facility]), CHF (congestive heart failure) ([facility]), Diabetes mellitus ([facility]), Hemodialysis patient ([facility]) ([facility]), blood clots, or MDRO (multiple drug resistant [...] Name: Mel Pop Patient : 1940 Acct: [id number] Date of Admission: 07/05/2024 Room/Bed: 60/60 PCP: [...] kidney disease COPD (chronic obstructive pulmonary disease) ([facility]) DVT (deep venous thrombosis) ([facility]) Essential hypertension 03/07/2020 GERD (gastroesophageal reflux disease) Hiatal hernia IBS (irritable bowel syndrome) Pure hypercholesterolemia 03/07/2020 PVD (peripheral vascular disease) ([facility]) Stroke ([facility]) Past Surgical History: Past Surgical History: Procedure [...] Historical Provider, ergocalciferol (Vitamin D2) 1.25 MG (60735 UT) capsule Take 1.25 mg by mouth [...] 5 MG tablet Take as directed by [facility] (90 tablets = 90 day [...] , Rfl: ergocalciferol (Vitamin D2) 1.25 MG (14801 UT) capsule, Take 1.25 mg by mouth [...] 5 MG tablet, Take as directed by [facility] (90 tablets = 90 day [...] 4:46 AM EST. Report Dictated on Workstation: hipix Electronically Signed By: Cirilo Ray DR Electronically [...] 4:46 AM EST. Report Dictated on Workstation: hipix Electronically Signed By: Cirilo Ray DR Electronically [...] this patient's care. documented in this encounter [facility] 07-05-2024 Consult note Formatting of [...] drops are started. Will continue to follow. [facility] 07-05-[address] Carlson at bedside. [facility] 07-05-[address] [...] Maritza FRAGA Emergency Department Encounter Location: [facility] EMERGENCY [facility]PT Patient: Mel Pop : [...] 423 ms QTC Interval 418 ms P [place] 0 degrees QRS [place] 37 degrees T Wave [place] 29 degrees [place] Interval 0 ms Troponin, High Sensitivity, Serial, [...] 4:46 AM EST. Report Dictated on Workstation: hipix Electronically Signed By: Cirilo Ray DR Electronically [...] IV. I discussed with Dr. Peres from [facility] hospitalist service who accepted the admit. Medications [...] Given 07/05/24 0517) I am not the binding printer of record. Dr. Nunes is the binding printer of record. Final Impression 1. Vision loss [...] MD 07/05/24 1322 documented in this encounter [facility] 07-05-2024 Note Formatting of this [...] - DO NOT do CPR, intubation] [_] [DNR-ENTER[employer]ISE SYSTEMS ENGINEER - Comfort care only] [_] DNR form [...] family/surrogate. Silvio Peres MD [facility] 07/05/2024, 1:18 PM [facility] 07-05-2024 Note Formatting of this n [...] - DO NOT do CPR, intubation] [_] [DNR-ENTERPRISE SYSTEMS ENGINEER - Comfort care only] [_] DNR form [...] and/or family/surrogate. 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 History Obtained From: patient and patient's yquyapyu-xe-rgk HISTORY OF PRESENT ILLNESS: Mel is a [...] (06/20/2024) Received from [facility] Overall Financial Resource Strain (CARDIA) Difficulty of Paying Living Expenses: Not very hard Food Insecurity: No Food Insecurity (06/20/2024) Received from [facility] Hunger Vital Sign Worried About Running Out of Food in the Last Year: Never true Ran Out of Food in the Last Year: Never true Transportation Needs: No Transportation Needs (07/02/2024) Received from [facility] Transportation Source Has lack of transportation [...] Concern Present (06/19/2024) Received from [facility] of Occupational Health - Occupational Stress Questionnaire Feeling of Stress : Not at all Social Connections: Moderately Isolated (06/20/2024) Received from [facility] Social Connection and Isolation Panel [NHANES] Frequency of Communication with Friends and Family: More than three times a week Frequency of Social Gatherings with Friends and Family: Once a week Attends Tenriism Services: More than 4 times per year Active Member of Clubs or Organizations: No Attends Club or Organization Meetings: Never Marital Status: Intimate Partner Violence: Not At Risk (06/19/2024) Received from [facility] Domestic Abuse Assessment Do you feel safe in your relationships at home?: Yes Physical Abuse: Denies [facility] Abuse - Type of Abuse: Not on file [facility] Domestic Abuse - Time Frame: Not on file [facility] Domestic Abuse - Signs and Symptoms: Not on file Verbal Abuse: Denies [facility] Domestic Abuse - Reported To: Not on file Housing Stability: Low Risk (06/20/2024) Received from [facility] Housing Stability Vital Sign Unable [...] the evening. ergocalciferol (Vitamin D2) 1.25 MG (18325 UT) capsule Take 1.25 mg by mouth [...] food.. pantoprazole (ProtoNix) 40 MG EC tablet Mark Gomez 100-62.5-25 MCG/ACT aerosol powder warfarin (Coumadin) 5 MG tablet Take as directed by [facility] (90 tablets = 90 day [...] 07/05/2024 [facility] 1940 [id number] Exam Date/Time: 07/05/2024 11:45 Procedure: MR BRAIN [...] 07/05/2024 Patient Name: [facility]EL POP [facility] 1940 [id number] Exam Date/Time: 07/05/2024 04:36 Procedure: CT HEAD [...] 07/05/2024 Patient Name: MEL POP : 1940 [facility]#: [id number] Exam Date/Time: 07/05/2024 04:36 Procedure: CT HEAD [...] 07/05/2024 Patient Name: MEL POP : 1940 [facility]#: [id number] Exam Date/Time: 07/05/2024 04:36 Procedure: CT PERFUSION [...] glucose meter Result Date: 07/05/2024 Performed by: [facility], [address] [place] [address] CLIA ID: [id number] Assessment / Plan Discussed management with the [...] MD Division of Hospitalist Medicine Acute care [facility] Dictated using [employer] Speaking Medical Version 2.4 Proof read however unrecognized voice recognition errors may have occurred [employer] Work Phone: 07-05-2024 Note [employer] [facility] 07-05-2024 History and physical note Attending History and Physical Admit Date: 07/05/2024 PCP: Jared Evans MD CHIEF COMPLAINT: Loss of vision right eye, headache/eye pain, nausea, eye swelling Reason for Admission: 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 History Obtained From: patient and patient's hdsxctto-wb-gew HISTORY OF PRESENT ILLNESS: Mel is a [...] (06/20/2024) Received from [facility] Overall Financial Resource Strain (CARDIA) Difficulty of Paying Living Expenses: Not very hard Food Insecurity: No Food Insecurity (06/20/2024) Received from [facility] Hunger Vital Sign Worried About Running Out of Food in the Last Year: Never true Ran Out of Food in the Last Year: Never true Transportation Needs: No Transportation Needs (07/02/2024) Received from [facility] Transportation Source Has lack of transportation kept [...] Concern Present (06/19/2024) Received from [facility] of Occupational Health - Occupational Stress Questionnaire Feeling of Stress : Not at all Social Connections: Moderately Isolated (06/20/2024) Received from [facility] Social Connection and Isolation Panel [NHANES] Frequency of Communication with Friends and Family: More than three times a week Frequency of Social Gatherings with Friends and Family: Once a week Attends Tenriism Services: More than 4 times per year Active Member of Clubs or Organizations: No Attends Club or Organization Meetings: Never Marital Status: Intimate Partner Violence: Not At Risk (06/19/2024) Received from [facility] Domestic Abuse Assessment Do you feel safe in your relationships at home?: Yes Physical Abuse: Denies [facility] Domestic Abuse - Type of Abuse: Not on file [facility] Domestic Abuse - Time Frame: Not on file [facility] Domestic Abuse - Signs and Symptoms: Not on file Verbal Abuse: Denies [facility] Domestic Abuse - Reported To: Not on file Housing Stability: Low Risk (06/20/2024) Received from [facility] Housing Stability Vital Sign Unable [...] the evening. ergocalciferol (Vitamin D2) 1.25 MG (30746 UT) capsule Take 1.25 mg by mouth [...] 5 MG tablet Take as directed by [facility] (90 tablets = 90 day [...] 07/05/2024 Patient Name: MEL POP : 1940 [facility]#: [id number] Exam Date/Time: 07/05/2024 04:36 Procedure: CT HEAD [...] 07/05/2024 Patient Name: MEL POP : 1940 [facility]#: [id number] Exam Date/Time: 07/05/2024 04:36 Procedure: CT PERFUSION [...] glucose meter Result Date: 07/05/2024 Performed by: [facility], [address] [place], [place] [address]IA ID: [id number] Assessment / Plan Discussed management with the [...] Silvio Peres MD Division of Hospitalist Medicine [facility] Dictated using [employer] Version 2.4 Proof read however unrecognized voice recognition errors may have occurred documented in this encounter [facility] 07-05-2024 Emergency department Note Provider notified of patient request for pain meds. [facility] 07-05-2024 Consult note Associated Order [...] drops to be discontinued after 4 days. [facility] 07-05-2024 Consult note Associated Order (s): Inpatient consult to Endovascular Neurology--[facility] Inpatient consult to Endovascular Neurology--[facility] Consult performed by: Helga Naik APRN - [facility] Consult ordered by: Wm Nunes DO [...] kidney disease, COPD (chronic obstructive pulmonary disease) ([facility]), DVT (deep venous thrombosis) ([facility]), Essential hypertension (03/07/2020), GERD (gastroesophageal reflux disease), Hiatal hernia, IBS (irritable bowel syndrome), Pure hypercholesterolemia (03/07/2020), PVD (peripheral vascular disease) ([facility]), and Stroke ([facility]). She has no past medical history of Cancer (CMS/HCC) ([facility]), Cerebral artery occlusion with cerebral infarction ([facility]), CHF (congestive heart failure) ([facility]), Diabetes mellitus ([facility]), Hemodialysis patient ([facility]) ([facility]), blood clots, or MDRO (multiple drug resistant [...] ., . Personal review of: Imaging,Labs,Old Records},.},. [facility] [employer] Work Phone: 07-05-[address] Carlson at bedside [facility] 07-05-2024 Emergency department Note Patient is returning back to room 32 at this time with Jose, Medic. [facility] 07-05-2024 Emergency department Note Pt currently at eye clinic with RADHA Hinkle for emergent eye laser procedure. [facility] 07-05-2024 Note Pt currently at eye clinic with RADHA Hinkle for emergent eye laser procedure. [facility] 07-05-2024 Emergency department Note Pt emergently going to eye clinic. Pt being transported in wheelchair with trauma float RADHA Hinkle and Maritza FRAGA Pt being transported on zoll monitor and acls kit. [facility] 07-05-2024 Emergency department Note Ophthalmology at bedside [facility] 07-05-2024 Emergency department Note Report to Maritza FRAGA [facility] 07-05-2024 Consult note Associated Order (s): IP CONSULT TO STROKE TEAM STROKE TEAM NOTE Patient Name: Mel Pop Patient : 1940 Acct: [id number] Date of Admission: 07/05/2024 Room/Bed: 60/60 PCP: [...] Historical Provider, ergocalciferol (Vitamin D2) 1.25 MG (59596 UT) capsule Take 1.25 mg by mouth [...] 5 MG tablet Take as directed by [facility] (90 tablets = 90 day supply). Current dose: 5 mg daily. 06/01/24 Ryan Valdez MD Current Hospital Medications: Current Facility-Administered Medications: fentaNYL (Sublimaze) injection 25 mcg, 25 mcg, IntraVENous, Once, Wm Aracelirakola, DO labetalol (Normodyne,Trandate) injection 10 mg, 10 mg, IntraVENous, q10 min PRN, Wm Aracelirakola, DO sodium chloride 0.9 % bolus 250 mL, 250 mL, IntraVENous, Once, Wm Aracelirakola, DO sodium chloride 0.9 % infusion, 5-250 [...] , Rfl: ergocalciferol (Vitamin D2) 1.25 MG (79433 UT) capsule, Take 1.25 mg by mouth [...] 5 MG tablet, Take as directed by [facility] (90 tablets = 90 day [...] motor function: 0=Normal Total: 2 Pre-admission Modified [place] Score: 1 __ 0 No symptoms at [...] 4:46 AM EST. Report Dictated on Workstation: hipix Electronically Signed By: Cirilo Ray DR Electronically [...] 4:46 AM EST. Report Dictated on Workstation: hipix Electronically Signed By: Cirilo Ray DR Electronically [...] to be involved in this patient's care. [facility] Phone: 07-05-2024 Physician Emergency department Note Emergency Department Encounter Location: [facility] EMERGENCY DEPT Patient: Mel Pop : [...] 423 ms QTC Interval 418 ms P [place] 0 degrees QRS [place] 37 degrees T Wave [place] 29 degrees [place] Interval 0 ms Troponin, High Sensitivity, Serial, [...] IV. I discussed with Dr. Peres from [facility] hospitalist service who accepted the admit. Medications [...] Given 07/05/24 0517) I am not the binding printer of record. Dr. Nunes is the binding printer of record. Final Impression 1. Vision loss of right eye 2. Acute intractable headache, unspecified headache type DISPOSITION Observation 07/05/2024 01:21:52 PM (Please note that portions of this note may have been completed with a voice recognition program. Efforts were made to edit the dictations but occasionally words are mis-transcribed.) Jhonatan Hernandez MD [employer] Jhonatan Hernandez MD 07/05/24 1322 [facility] 06-19-2024 Note HNO ID: [id number] Author: JOSE GONZALEZ RPh Service: Pharmacy Author [...] neuroendovascular for ICA aneurysm Jose Gonzalez [facility] Pager: Nora/Hailey chat 06/19/2024 1:31 PM Medication [...] ELLIPTA 100-62.5-25 mcg inhalation powder Generic drug: uvyhqoesnmr-nxcptshna-jyfqkmks VITAMIN C 500 mg tablet Generic drug: [...] zinc oxide 20 % ointment [facility] 06-19-2024 Note HNO ID: [id number] Author: ROSLYN ROSE RN Service: Care Management Author Type: Registered Nurse Type: Care Mgt Progress Note Filed: 06/19/2024 13:11 Note Text: CARE MANAGEMENT DISCHARGE NOTE SERVICE DATE: June 19, 2024 SERVICE TIME: 1:10 PM Admission Date: 06/10/2024 LOS: 8 days Discharge Arrangement Discharge Arrangement: Acute Rehabilitation Facility Services Arranged Provider Name: Taylor Patiño [facility] Caregiver Assessment Caregiver is ready, willing and able to meet the patient's needs as recommended by the inter-professional team: Yes Name of Caregiver: Taylor Muir Transportation Arrangements Transportation Arrangements: Ambulance Transportation Agency and Phone #:: [facility] ( [facility] ) [phone] / [phone] Date of Trip: 06/19/24 Time of Trip: 1800 Type of Service: BLS Non-emergency Drum Stenciler Location: [facility] Destination: [facility] Financial Care Management Responsibility: None Handoff Communication: Handoff to: Specialty Chemical Economist Specialty Chemical Economist Name/Phone: Taylor Patiño [facility] Additional Information: Patient has insurance precert and is discharging to [facility] today via [facility] cot at 6:00 PM. Spoke with patient at bedside and son José Miguel via phone who are aware and agreeable. Transfer envelope with chart. Care team aware via [employer] chat. Discharge Information Row Name ED to Hosp-Admission (Current) from 06/10/2024 in [place] [address] NEURO/CARD Rehab Facility Agency [facility] Rosariow SIGNATURE: Roslyn Rose RN PATIENT NAME: Mel Castillo DATE: June 19, 2024 TIME: 1:10 PM CONTACT #: [phone] [facility] 06-19-2024 Note HNO ID: [id number] Author: DON EDWARDS DO Service: Hospital Medicine Author Type: Physician Type: Progress Notes Filed: 06/19/2024 12:53 Note Text: DEPARTMENT OF HOSPITAL MEDICINE PROGRESS NOTE SERVICE DATE: 06/19/2024 SERVICE TIME: 10:10 AM Hospital Medicine/Primary Attending: Don Edwards DO NIGHT AND WEEKEND COVERAGE: [place] COVERAGE: From 7am - 7pm, please call [phone] After 7pm, please call cross cover pager #[phone] Subjective INTERVAL HPI: Pt seen and examined. [...] Forearm 22 Gauge -- days Peripheral 06/12/24426 [facility] Short Right Forearm 20 Gauge 7 days Reviewed lines and needs to be continued: REASONS: Difficulty in obtaining/maintaining access DATA: Diagnostic tests reviewed for today's visit: Most recent labs and imaging results. 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 [place]hab [place]. Will need to follow up with neurology [...] -- 06/11/24 0730 vte current anticoag therapy ([place] 06/11/24 0730 activity - mobilize patient ([place]) VTE Prophylaxis: VTE prophylaxis appropriate Disposition: Acute Rehab Plan of care discussed with: Provider, RN, Patient SIGNATURE: Don Edwards DO PATIENT NAME: Mel Castillo DATE: June 19, 2024 TIME: 10:10 AM etx [id number] [facility] 06-18-2024 Note HNO ID: [id number] Author: ANABEL VEGA, Mabel Service: Care Management Author Type: ? Type: Care Mgt Progress Note Filed: 06/18/2024 17:18 Note Text: [facility] ([facility]) PRECERT NOTE [employer] MEDICARE PPO approved Inpatient Rehab Facility for [facility] Taylor Patiño. Precert approved for dates: - 06/26/2024. For any additional questions regarding approvals, transport or care management needs, please contact the CM assigned to this patient in the Treatment Team. SIGNATURE: Anabel Khalil Page DATE: June 18, 2024 TIME: 5:17 PM [facility] 06-18-2024 Note HNO ID: [id number] Author: MARK MINOR DO Service: Hospital Medicine Author Type: Physician Type: Progress Notes Filed: 06/18/2024 16:17 Note Text: DEPARTMENT OF HOSPITAL MEDICINE PROGRESS NOTE SERVICE DATE: 06/18/2024 SERVICE TIME: 4:06 PM Hospital Medicine/Primary Attending: Mark Minor DO NIGHT AND WEEKEND COVERAGE: After 7pm please page [phone] SUBJECTIVE: Patient seen examined at bedside. No [...] now event with subtherapeutic coumadin. [place]hab [place]. Will need to follow up with neurology [...] atrial (more content not included)... [facility] 06-18-2024 Note HNO ID: [id number] Author: ROSLYN ROSE RN Service: Care Management Author Type: Registered Nurse Type: Care Mgt Progress Note Filed: 06/18/2024 12:32 Note Text: CARE MANAGEMENT PROGRESS NOTE SERVICE DATE: 06/18/2024 SERVICE TIME: 9:01 AM LOS: 7 days Chart reviewed. Insurance precert is pending for [facility]. Will need precert and cot transport. CM to follow for transitional care planning. ADDENDUM at 10:20 AM- Spoke with patient at bedside and provided update on pending precert. Received message from [facility] that insurance is requesting updated PT/OT evals and notified therapy. SIGNATURE: Roslyn Rose RN PATIENT NAME: Mel Castillo DATE: June 18, 2024 TIME: 9:01 AM PAGER/CONTACT #: [phone] [facility] 06-17-2024 Note HNO ID: [id number] Author: DON EDWARDS DO Service: Hospital Medicine Author Type: Physician Type: Progress Notes Filed: 06/17/2024 13:52 Note Text: DEPARTMENT OF HOSPITAL MEDICINE PROGRESS NOTE SERVICE DATE: 06/17/2024 SERVICE TIME: 11:15 AM Hospital Medicine/Primary Attending: Don Edwards DO NIGHT AND WEEKEND COVERAGE: [place] COVERAGE: From 7am - 7pm, please call [phone] After 7pm, please call cross cover pager #[phone] Subjective INTERVAL HPI: Pt seen and examined. [...] 22 Gauge -- days Peripheral 06/12/24 0427 [facility] Short Right Forearm 20 Gauge 5 days [...] eliquis. She was seen by therapy and correction facility was recommended. 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 [place]hab [place] Will need to follow up with neurology [...] -- 06/11/24 0730 vte current anticoag therapy [place]) 06/11/24 0730 activity - mobilize [place] ([place]) VTE Prophylaxis: VTE prophylaxis appropriate Disposition: Acute Rehab Plan of care discussed with: Provider, RN, Patient SIGNATURE: Don Edwards DO PATIENT NAME: Mel Castillo DATE: June 17, 2024 TIME: 11:15 AM etx [id number] [facility] 06-16-2024 Note HNO ID: [id number] Author: DON EDWARDS DO Service: Hospital Medicine Author Type: Physician Type: Progress Notes Filed: 06/16/2024 13:06 Note Text: DEPARTMENT OF HOSPITAL MEDICINE PROGRESS NOTE SERVICE DATE: 06/16/2024 SERVICE TIME: 11:00 AM Hospital Medicine/Primary Attending: Don Edwards DO NIGHT AND WEEKEND COVERAGE: [place] COVERAGE: From 7am - 7pm, please call [phone] After 7pm, please call cross cover pager #[phone] Subjective INTERVAL HPI: Pt seen and examined. [...] 22 Gauge -- days Peripheral 06/12/24 0427 [facility] Short Right Forearm 20 Gauge 4 days Drain Duration Indwelling Urinary Catheter 06/11/24 1535 [facility] Ceballos 16 Fr 4 days Reviewed lines and needs to be continued: REASONS: Difficulty in obtaining/maintaining access DATA: Diagnostic tests reviewed for today's visit: Most recent labs and imaging results. 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 [place]hab [place] Will need to follow up with neurology [...] -- 06/11/24 0730 vte current anticoag therapy ([place]) 06/11/24 0730 activity - mobilize patient ([place] VTE Prophylaxis: VTE prophylaxis appropriate Disposition: Acute Rehab Plan of care discussed with: Provider, RN, Patient SIGNATURE: Don Edwards DO PATIENT NAME: Mel Castillo DATE: June 16, 2024 TIME: 11:00 AM etx [id number] [facility] 06-15-2024 Note HNO ID: [id number] Author: ERA TELLES MD Service: Hospital Medicine [...] on oxygen Plan for acute rehab at [place] [facility] able to accept. Await precert Plan of care discussed with: Provider, RN, Patient. SIGNATURE: Era Telles MD PATIENT NAME: Mel Castillo DATE: June 15, 2024 TIME: 2:40 PM PAGER: [facility] 06-15-2024 Note HNO ID: [id number] Author: ISHAN October,N.EDUCATION PROGRAM COORDINATOR Service: Urology Author Type: Nurse Practitioner Type: Plan of Care Filed: 06/15/2024 12:16 Note Text: Urology Plan of Care Note RN reached out asking about a void trial today. Notes pt has bloody urine. Pt seen at bedside. Pt eating lunch. Vanessa urine in tubing at this time. Will place PRN irrigation orders if urine is bloody again. Page urology resident patient registration supervisor if urine is grade 4 or higher. [...] on the unit. October06/15/2024 12:11 PM Page patient registration supervisor resident with questions [facility] 06-15-2024 Note HNO ID: [id number] Author: ROSLYN ROSE RN Service: Care Management [...] 15, 2024 TIME: 9:36 AM PAGER/CONTACT #: [phone] [facility] 06-14-2024 Note HNO ID: [id number] Author: JENNIFER FERNANDEZ RN Service: Nursing Author Type: Registered Nurse Type: Nursing Progress Note Filed: 06/14/2024 17:35 Note Text: 1610: paged urology for voiding trial awaiting response [facility] 06-14-2024 Note HNO ID: [id number] Author: ERA TELLES MD Service: Hospital Medicine [...] on oxygen Plan for acute rehab at [place] [facility] able to accept. Await precert Plan of care discussed with: Provider, RN, Patient. SIGNATURE: Era Telles MD PATIENT NAME: Mel Castillo DATE: June 14, 2024 TIME: 2:47 PM PAGER: [facility] 06-13-2024 Note HNO ID: [id number] Author: EDIE CASTAÑEDA MD Service: Hospital Medicine Author Type: Physician Type: Progress Notes Filed: 06/13/2024 14:18 Note Text: DEPARTMENT OF HOSPITAL MEDICINE Hospital Medicine/Primary Attending: Edie Castañeda MD NIGHT AND WEEKEND COVERAGE: After 7pm please page [phone] MEDICATIONS: Current Facility-Administered Medications Medication Dose Route [...] -- 1.2 1.3 BMP: Recent Labs 06/13/24 01306/12/2435006/10/242329 GLUC 95 109* 157* NA 136 137 [...] interatrial septum. Patient sees Dr. Padilla at [facility]. Cardiology saw patient in hospital, recommended Lovenox at discharge for lifelong. 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 Continue heparin drip. Will transition to therapeutic lovenox tonight (discussed patel and affordability with patient, lin (more content not included)... [facility] 06-13-2024 Note HNO ID: [id number] Author: CARLYLE GUZMÁN, RN Service: Care Management [...] 13, 2024 TIME: 12:54 PM PAGER/CONTACT #: [phone] [facility] 06-12-2024 Note HNO ID: [id number] Author: SHARONA MCDERMOTT MD Service: Hospital Medicine Author Type: Physician Type: Progress Notes Filed: 06/12/2024 17:08 Note Text: DEPARTMENT OF HOSPITAL MEDICINE Hospital Medicine/Primary Attending: Sharona Mcdermott MD NIGHT AND WEEKEND COVERAGE: After 7pm please page [phone] Saw patient at bedside with friend visiting. [...] 06/12/24 0450 06/12/24 0351 06/11/24202106/11/24 1353 06/10/24 2330 APTT 79.0* 123.9* 117.3* [...] -- HEPATIC: Recent Labs 06/12/24 0351 06/10/24 2330 ALKPHOS 88 99 ALT 6* 8 AST [...] interatrial septum. Patient sees Dr. Padilla at [facility]. Cardiology saw patient in hospital, recommended [...] Not (more content not included)... [facility] 06-12-2024 Note HNO ID: [id number] Author: DEBORAH PEACE RN Service: Care Management Author Type: Registered Nurse Type: Care Mgt Progress Note Filed: 06/12/2024 16:10 Note Text: CARE MANAGEMENT PROGRESS NOTE SERVICE DATE: 06/12/2024 SERVICE TIME: 4:09 PM LOS: 1 day [place] of Choice Given: Yes Level of Care Discussed: Inpatient Rehab Facility Financial Disclosure Provided: Yes Provider List: Rehab Facility Provider list within the patient's requested geographic area shared with the patient/family: Yes within: 15 miles of zip code: [address] Quality and resource use metrics shared with the patient that are relevant to the patient's goals of care and treatment preferences:: Yes Spoke with pt about pt/ot recs for acute rehab, pt agreeable to list , [facility] Patiño would be foc but pt would like to discuss acute rehab with her ; referral sent to [facility] SIGNATURE: Deborah Peace RN PATIENT NAME: Mel Castillo DATE: June 12, 2024 TIME: 4:09 PM PAGER/CONTACT #: [phone] [facility] 06-12-2024 Note HNO ID: [id number] Author: ANDREEA KING LSW Service: Care Management Author Type: General Foreman Type: Care Mgt Progress Note Filed: 06/12/2024 [...] 12, 2024 TIME: 3:20 PM PAGER/CONTACT #: [phone] [facility] 06-11-2024 Note HNO ID: [id number] Author: CARLYLE GUZMÁN RN Service: Care Management [...] Admission Status: Observation Insurance Provider: [employer] MEDICARE [facility] Discharge Planning requested by: Per Department Practice Potential Transition Plans Home Advance Directives Current Advance Directive: None Mix House Tender Attempted to Assist with AD Completion: Yes [...] General wellness, Be able to go home [place] of Choice Explained: [place] of Choice Given: No Reason Not Given: [...] family who said she was 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 +PCP, +DME, +RX coverage, family to provide DC transportation. Will to continue to follow for transitional care planning. SIGNATURE: Carlyle Guzmán RN PATIENT NAME: Mel Castillo DATE: June 11, 2024 TIME: 3:41 PM CONTACT #: [phone] [facility] 06-11-2024 Note Spoke with Melany Evans's office and she stated that patient is scheduled in their office tomorrow, 06/12 for INR check. I faxed her out last progress note. I will inactivate patient from our service. [facility] 05-21-2024 History of Present illness Narrative INR reported on by Christin with [facility]. Christin can be reached at [phone] with questions. Images from the original note were not included. [facility] Anticoagulation Management Service ([facility]) Anticoagulation Clinic [address] [place] [address], [address] [place] [address] Subjective TYSON Choi (1940) had INR completed [...] PharmD, BCACP, CACP documented in this encounter [facility] 05-09-2024 History of Present illness Narrative Graciela from [facility] called in results. Images from the original note were not included. [facility] Anticoagulation Management Service ([facility]) Anticoagulation Clinic [address] [place] [address], [address], [place] [id number] Megan TYSON Choi (1940) had INR completed by [...] Perez PharmD, BCPS documented in this encounter [facility] 05-01-2024 History of Present illness Narrative Tia- [facility]- [phone] Images from the original note were not included. [facility] Anticoagulation Management Service ([facility]) Anticoagulation Clinic [address] [place] [address], [address] [place] [address] Subjective HPI Mel (1940) had INR completed [...] 5 mg daily Next INR Check: 05/08/2024 [facility] Patient educated on the following: dietary/lifestyle considerations and Vitamin K content and consistency Patient care coordination completed: N/A Patient given verbal instructions. Patient expressed understanding utilizing the teach back method. Time spent 10 Minutes Won Tipton RN staffed with Chalino Tolbert, BCACP, CACP documented in this encounter [facility] 04-27-2024 Telephone encounter Note Pt requested refill on warfarin 5mg. Sent to [facility]. Receipt confirmed by pharmacy. [facility] 04-27-2024 Miscellaneous Notes Pt requested refill on warfarin 5mg. Sent to [facility]. Receipt confirmed by pharmacy. documented in this encounter [facility] 04-25-2024 History of Present illness [...] any significant pain. She is following with [facility] clinic for Warfarin, switched from Eliquis. She [...] tablet (5mg) on 04/15 Follow up with [facility] pharmacy for further dosing 04/13/24 Jordin Roldan [...] min Stress: No Stress Concern Present (04/04/2024) [place] of [employer]ational [employer] - Occupational Stress Questionnaire Feeling of Stress : Not at all Social Connections: Moderately Isolated (04/04/2024) Social Connection and Isolation Panel [NHANES] Frequency of Communication with Friends and Family: More than three times a week Frequency of Social Gatherings with Friends and Family: More than three times a week Attends Tenriism Services: 1 to 4 times per year [...] thrombectomy -Recovering well -Recommend continuing warfarin per [facility] clinic -Continue to elevate as needed. -Discussed [...] (around 07/26/2024). . documented in this encounter [facility] 04-19-2024 History of Present illness Narrative Graciela with [facility] reports INR on Graciela can be reached at [phone] with any questions. Images from the original note were not included. [facility] Anticoagulation Management Service ([facility]) Anticoagulation Clinic [address] [place] [address], [address], [place] [address] Subjective HPI Mel (1940) had INR completed [...] positive findings Mel was instructed to notify [facility] of any unusual bruising or active/uncontrollable bleeding, medication changes within 24 hours, missed doses, dietary changes, illnesses or hospitalizations, and upcoming surgeries. Patient given verbal instructions. Patient expressed understanding utilizing the teach back method. Time spent 15 Minutes JOSE ANGEL Perez, PharmD, BCPS documented in this encounter [facility] 04-14-2024 History of Present illness Narrative Placed new order for POCT INR, [facility] had not received. documented in this encounter [facility] 04-14-2024 Miscellaneous Notes Addended by: PATTY DUGGAN on: 04/16/2024 07:01 AM Modules accepted: Orders Addended by: HARMONY GREY on: 04/16/2024 08:41 AM Modules accepted: Orders documented in this encounter [facility] 04-14-2024 Note Addended by: PATTY DUGGAN on: 04/16/2024 07:01 AM Modules accepted: Orders [facility] 04-14-2024 Note Addended by: HARMONY GREY on: 04/16/2024 08:41 AM Modules accepted: Orders [facility] 04-14-2024 Note Addended by: PATTY DUGGAN on: 04/16/2024 07:01 AM Modules accepted: Orders [facility] 04-14-2024 Note Addended by: HARMONY GREY on: 04/16/2024 08:41 AM Modules accepted: Orders [facility] 04-14-2024 Note Addended by: PATTY DUGGAN on: 04/16/2024 07:01 AM Modules accepted: [facility] 04-14-2024 Note Addended by: HARMONY GREY on: 04/16/2024 08:41 AM Modules accepted: [facility] 04-13-2024 Nurse Note AVS explained. Discharged patient on stable condition. [facility] 04-13-2024 Nurse Note AVS explained. Discharged patient on stable condition. Instructed patient on warfarin dosing, she will take 7.5mg tomorrow, and 5mg Tuesday, and then we will check INR with home care on Tuesday as instructed. NO changes to heparin infusion at this time. documented in this encounter [facility] 04-13-2024 Nurse Note Instructed patient on warfarin dosing, she will take 7.5mg tomorrow, and 5mg Tuesday, and then we will check INR with home care on Tuesday as instructed. [facility] 04-13-2024 Note Formatting of this n ote might be different from the original. Phone conversation with the patient at their request from the [facility] regarding her established home care. Patient was wondering what services were being provided and what expectations to have for [facility]. I explained her current ordered services and she stated she understood. Patient then asked if she could have meals delivered. I explained I would reach out to her social work professor here at the hospital for further guidance on resources when she gets home. Secure chat sent to KEESHA Basilio regarding this. [facility] 04-13-2024 Note Formatting of this n ote might be different from the original. Phone conversation with the patient at their request from the [facility] regarding her established home care. Patient was wondering what services were being provided and what expectations to have for HHC. I explained her current ordered services and she stated she understood. Patient then asked if she could have meals delivered. I explained I would reach out to her social work professor here at the hospital for further guidance on resources when she gets home. Secure chat sent to KEESHA Basilio regarding this. [facility] 04-13-2024 Miscellaneous Notes Phone conversation with the patient at their request from the [facility] regarding her established home care. Patient was wondering what services were being provided and what expectations to have for HHC. I explained her current ordered services and she stated she understood. Patient then asked if she could have meals delivered. I explained I would reach out to her social work professor here at the hospital for further guidance on resources when she gets home. Secure chat sent to KEESHA Basliio regarding this. Images from the original note were not included. Care Management Progress Note INR 2.3 today. Hep drip continued, plan to DC to [facility] today. Plan to have PT seen patient today per her request. Patient is active with [facility]. Await treatment plan and clinical progress. retail associate manager bilingual will continue to follow for transitional care [...] to oral when appropriate. Pt active with [facility]- will continue services at discharge. Await treatment plan and clinical progress. retail associate manager bilingual will continue to follow for transitional care needs for discharge planning. Discharge Milestones and Delays Expected date/time: 04/13/2024 Expected discharge disposition: Home Health Services Discharge Milestones Place discharge order Complete med reconciliation Case mgmt discharge readiness Clinical Stability Diagnostic Workup Sheeter Helper Recommendations Facility Choice Selection Imaging Results PT [...] vasc consult" 04/06/2024 Bernie Cutler APRN - EDUCATION PROGRAM COORDINATOR 04/04/2024 4:04 AM 04/06/2024 Bernie Cutler APRN - EDUCATION PROGRAM COORDINATOR 04/03/2024 11:17 PM Length of Stay (Days): [...] discharge. Await treatment plan and clinical progress. retail associate manager bilingual will continue to follow for transitional care [...] discharge. Await treatment plan and clinical progress. retail associate manager bilingual will continue to follow for transitional care needs for discharge planning. Discharge Milestones and Delays Expected date/time: 04/11/2024 Expected discharge disposition: Home or Self Care Discharge Milestones Place discharge order Complete med reconciliation Case mgmt discharge readiness Clinical Stability Diagnostic Workup Sheeter Helper Recommendations Facility Choice Selection Imaging Results Patient [...] vasc consult" 04/06/2024 Bernie Cutler APRN - EDUCATION PROGRAM COORDINATOR 04/04/2024 4:04 AM 04/06/2024 Bernie Cutler APRN - EDUCATION PROGRAM COORDINATOR 04/03/2024 11:17 PM Length of Stay (Days): 7 GMLOS: 4 Images from the original note were not included. Care Management Progress Note Remains on heparin gtt while transitioning to coumadin. Consult Hemology. Pt active with [facility]- will continue services at discharge. Await treatment plan and clinical progress. retail associate manager bilingual will continue to follow for transitional care needs for discharge planning. Discharge Milestones and Delays Expected date/time: 04/10/2024 Expected discharge disposition: Home or Self Care Discharge Milestones Place discharge order Complete med reconciliation Case mgmt discharge readiness Clinical Stability Diagnostic Workup Sheeter Helper Recommendations Facility Choice Selection Imaging Results Patient [...] lower US, vasc consult" 04/06/2024 Bernie Cutler FILLER SHREDDER - EDUCATION PROGRAM COORDINATOR 04/04/2024 4:04 AM 04/06/2024 Bernie Cutler APRN - EDUCATION PROGRAM COORDINATOR 04/03/2024 11:17 PM Length of Stay (Days): [...] vasc consult" 04/06/2024 Bernie Cutler APRN - EDUCATION PROGRAM COORDINATOR 04/04/2024 4:04 AM 04/06/2024 Bernie Cutler APRN - EDUCATION PROGRAM COORDINATOR 04/03/2024 11:17 PM Length of Stay (Days): 3 GMLOS: 3.1 Patient report called to 4N RN and denies any further questions. Patient resting comfortably and no signs of distress. Per resident patient to lay flat for 2 hours and restart heparin GTT at 1215. Transport notified. SW assisted patient with completion of Health Care Power of Management Supervisor. One copy placed in patient chart, one copy sent to medical records and two copies given to patient. Requested by patient, while at bedside this SW spoke to patient's son via patients phone to explain that HCPOA was being completed by patient. Patients son José Miguel Castillo ([phone]) agreed to be this patients agent on [...] technique was used to place a 5 Jordanian sheath. A Bentson wire was able to be advanced in the inferior vena cava without difficulty. The 5 Jordanian sheath was then upsized to a 16 Jordanian sheath and the penumbra flash suction thrombectomy device was prepared per video conference specialist's instructions. The patient was also given 5000 units of heparin for systemic anticoagulation at this time. The Penumbra device was then inserted through the 16 Jordanian sheath and a suction thrombectomy was performed [...] device was removed as was the 16 Jordanian sheath and an 0 silk suture was [...] Procedures RIGHT LOWER EXTREMITY VENOUS MECHANICAL THROMBECTOMY 44948 - LA PRQ TRANSLUMINAL MECHANICAL THROMBECTOMY VEIN Surgeons * Kristyn Blankenship - Primary Procedure Summary Anesthesia: General ASA: III Estimated Blood Loss: 300 mL Drains: * None in log * Staff: Oceanographer Assistant: Negrita Elizabeth RN; Amira Burton RN Scrub [...] Limits Permission given to speak with patient cash posting representative/caregiver as indicated: Confirmation of Payer with [...] home alone and indep. Pt active with [facility]- liaison following for continued services. Pt uses walker/cane at baseline. Pt has insurance, PCP and able to obtain meds. Pt's friends help with transportation. No needs antic at discharge. Virginia Rehman RN Start PACC Note Home Health Referral Educated patient on Home Care and services available. Patient offered choice of available HHC and agreeable to SN/PT services with [facility]. [...] is noted as yes - consider a COOK CHILI evaluation once the patient returns home. START PATIENT REGISTRATION INFORMATION Order Information Order Signing Physician: Robert Vigil MD Service Ordered RN ?: Yes Service Ordered PT ?: Yes Service Ordered OT ?: No Service Ordered ST ?: No Service Ordered COOK CHILI?:No Service Ordered TREADLE CUT OFF SAW OPERATOR?: No Following Physician: Jared Evans MD Following Physician Overseeing Physician: Jared Evans MD (Required for Residents only) Agreeable to Follow? Yes Date/Time of Call 04/04/24 11:36 AM, Spoke with: Patient is a DEB. Care Coordination Same Day SOC?: No Primary Care Physician: Jared Evans MD Primary Care Physician Primary Care Physician Address: [address] [place] [id number] Visit Instructions: N/A Service Discharge Location Type: Home with Home Care Service Facility Name: N/A Service Floor Facility: N/A Service Room No: N/A Demographics Patient Last Name: Pop Patient First Name: Mel Language/Communication Barrier: none Service Address: [address] Service City: [facility]: [place] Service ZIP: [address] Service Other phone numbers: Telephone Information: Emergency [...] Caregiver Phone Number: na Caregiver Notes: N/A [facility] List No END PATIENT REGISTRATION INFORMATION Pt [...] intervention. Discharge Date: pending Referral Source-PACC: (Hospital/Unit): [facility] / N4-461/N4-461 B End PACC Note The patient is Moderately Stable - Low risk of patient condition declining or worsening The patient's goals for the shift include safety The clinical goals for the shift include therapeutic aptt Patient is currently active with [facility]. The patients current certification period will on 05/18/24. The patient is currently receiving PT services through the agency. Supervisor [employer] to continue to follow. ADVANCED CARE PLANNING Mel Pop : 1940 Primary Care Physician: Jared Evans MD The patient and/or family/surrogate voluntarily agreed to participate in ACP services. Patient s cognitive capacity: intact Code Status: [ ] [FULL CODE - Continue all advanced life support: CPR,intubation,invasive procedures] [X] [DNR-CCA - DO NOT do CPR, intubation] [_] [DNR-ENTERPRISE SYSTEMS ENGINEER - Comfort care only] [_] DNR form [...] and/or family/surrogate. Pratibha Avelar DO Acute care [facility] 04/04/2024, 5:40 AM The patient is Moderately Stable - Low risk of patient condition declining or worsening The patient's goals for the shift include met The clinical goals for the shift include met Over the shift, the patient did not make progress toward the following goals. Barriers to progression include . Recommendations to address these barriers include . documented in this encounter [facility] 04-13-2024 Note [facility] 04-13-2024 Hospital course Narrative Discharge Summary Mel Pop : 1940 ADMIT DATE: 04/03/2024 DISCHARGE DATE: 04/13/2024 PRIMARY CARE PHYSICIAN: Jared Evans VISIT STATUS: Admission CODE STATUS: DNR-CCA DISCHARGE DIAGNOSES: Principal Problem: Peripheral arterial disease (HCC) Bilateral lower extremity DVTs RLE thrombectomy HOSPITAL COURSE: 83-year-old woman with history of A-fib on Eliquis, tobacco use, hypertension, hyperlipidemia, asthma, hiatal hernia, GERD presented to [facility] on 04/03 with right leg pain, numbness, tingling causing difficulty ambulating. 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 She underwent venous thrombectomy with vascular surgery and was initiated on warfarin bridging with heparin. [facility] followed and managed bridging anticoagulation. Pt reported feeling improvement from day to day. Though she was concerned that being stuck in the hospital will debilitate her.Her INR was therapeutic on 04/13. [facility] recommended transition to Warfarin alternating 5mg/7.5mg dosing and close OP follow up for INR check. SIGNIFICANT DIAGNOSTIC STUDIES: BLE Duplex CONSULTANTS: Vascular surgery Pharmacy RECOMMENDED NEXT STEPS: Follow up with [facility] clinic and vascular DISCHARGE MEDICATIONS: Medication [...] tablet (5mg) on 04/15 Follow up with [facility] pharmacy for further dosing CONTINUE taking these medications albuterol 108 (90 Base) MCG/ACT inhaler ascorbic acid 500 MG tablet Commonly known as: Vitamin C lisinopril 5 MG tablet pantoprazole 40 MG EC tablet Commonly known as: ProtoNix Trelegy Ellipta 100-62.5-25 MCG/ACT aerosol powder Generic drug: Anluggtnagl-Tobfnblpg-Fnalqi STOP taking these medications Eliquis 5 MG tablet Generic drug: apixaban Where to Get Your Medications These medications were sent to [facility] [address] [place], [place] [phone] Hours: Tuesday to Tuesday 10 am to 6 pm oxyCODONE 5 MG immediate release tablet warfarin 5 MG tablet DIET: Adult diet Regular ACTIVITY: No restriction. COMPLEXITY OF FOLLOW UP: [x] Moderate Complexity: follow up within 7-14 calendar days (06687) [] Severe Complexity: follow up within 7 calendar days (97361) FOLLOW UP TESTING, PENDING RESULTS OR REFERRALS AT TRANSITIONAL CARE VISIT: [] Yes [x] No PENDING STUDIES: none DISPOSITION: Home with Home Health Care FACILITY/HOME CARE AGENCY NAME: [facility] Follow up with Kristyn Blankenship MD [address] [place], [place] [id number] Schedule an appointment as soon as possible [...] 04/13/2024, 2:20 PM documented in this encounter [facility] 04-13-2024 History of Present illness Narrative Images from the original note were not included. PHYSICAL THERAPY [facility] Treatment Note Name/MRN: Mel Pop ([id number]) Date of : 1940 Age: 83 y.o. [...] 1045 Minutes 13 (Gait) Christin Gu PT [facility] Anticoagulation Management Service ([facility]) Inpatient Warfarin Consult HPI: Mel Pop is a 83 y.o. female admitted on 04/03/2024 for Peripheral arterial disease (HCC). Past Medical History: Diagnosis Date Asthma Essential hypertension 03/07/2020 GERD (gastroesophageal reflux disease) Hiatal hernia Pure hypercholesterolemia 03/07/2020 Patient is newly referred to the [facility] clinic for warfarin management. Pt was referred [...] PharmD [facility]ABRIELLA Consult Service is available daily [phone] via [employer] Secure Chat. If no response, please page [phone]. Hospitalist Progress Note 04/13/2024 Subjective: Admit Date: 04/03/2024 PCP: Jared Evans MD Room#: N4461/N4-471 B BRIEF HOSPITAL COURSE: 83-year-old woman with history of A-fib on Eliquis, tobacco use, hypertension, hyperlipidemia, asthma, hiatal hernia, GERD presented to [facility] on 04/03 with right leg pain, numbness, tingling causing difficulty ambulating. 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 She underwent venous thrombectomy with vascular surgery and was initiated on warfarin bridging with heparin. [facility] followed and managed bridging anticoagulation. Pt reported feeling improvement from day to day. Though she was concerned that being stuck in the hospital will debilitate her.Her INR was therapeutic on 04/13. [facility] recommended transition to Warfarin alternating 5mg/7.5mg dosing and close OP follow up for INR check. Interval History: Pt seen and examined at bedside. No acute events overnight. Requested to work with PT this morning. They recommend home PT. Heparin gtt discontinued, plan for alternating 5/7.5 dosed warfarin and close OP follow up with [facility]. Case and plan discussed with patient and [...] hypercholesterolemia 03/07/2020 LABS: CBC: Recent Labs 04/11/242604/12/2451804/13/24 0359 WBC 4.5 4.1 4.2 RBC 2.72* [...] for component: LABALBU PT/INR: Recent Labs 04/11/242604/12/2451804/13/24 0359 PROTIME 20.9* 20.3* 24.2* INR 1.9* [...] person, place, and time. Medications: Scheduled PRN Erjrlxemnvh-Otfspgayw-Plmweh, 1 puff, Inhalation, Daily influenza, 0.5 mL, [...] was pursued: -Heparin bridge to warfarin per [facility] recommendations - INR therapeutic on 04/13 [...] Jordin Roldan MD Division of Hospitalist Medicine [facility] [place] Hospitalist Progress Note 04/12/2024 Subjective: Admit Date: 04/03/2024 PCP: Jared Evans MD Room#: N4-461/N4-461 B BRIEF HOSPITAL COURSE: 83-year-old woman with history of A-fib on Eliquis, tobacco use, hypertension, hyperlipidemia, asthma, hiatal hernia, GERD presented to [facility] on 04/03 with right leg pain, numbness, tingling causing difficulty ambulating. 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 She underwent venous thrombectomy with vascular [...] person, place, and time. Medications: Scheduled PRN Vlaoqoinzvf-Vkmzxnbuz-Iqrzwk, 1 puff, Inhalation, Daily influenza, 0.5 mL, [...] Roldan MD Division of Hospitalist Medicine Acute [facility] Anticoagulation Management Service ([facility]) Inpatient Warfarin Consult HPI: Mel Pop is a 83 y.o. female admitted on 04/03/2024 for Peripheral arterial disease (HCC). Past Medical History: Diagnosis Date Asthma Essential hypertension 03/07/2020 GERD (gastroesophageal reflux disease) Hiatal hernia Pure hypercholesterolemia 03/07/2020 Patient is newly referred to the [facility] clinic for warfarin management. Pt was referred [...] follow-up upon discharge. Patient is agreeable to [facility] follow up. 4. Provided warfarin education. Marybeth Rahman RPh, PharmD GABRIELLA Consult Service is available daily [phone] via [employer] Secure Viepage. If no response, please page [phone]. Images from the original note were not included. OCCUPATIONAL THERAPY [facility] Initial Evaluation Name/MRN: Mel Pop ([id number]) Evaluation Date: 04/11/2024 Date of : 1940 Admission Date: 04/03/2024 5:47 PM Age: 83 y.o. Room/Bed: N4461/N4461 B Discharge Recommendation: Home with assist PRN, [...] EOS to assess. Pain: RN managing pain. 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 03/07/2020 Seasonal allergies 03/07/2020 Chronic renal insufficiency, stage III (moderate) ([facility]) 03/07/2020 Major depression, single episode, in complete remission ([facility]) 03/07/2020 Gastroesophageal reflux disease without esophagitis 03/07/2020 Essential hypertension 03/07/2020 Pure hypercholesterolemia 03/07/2020 Overweight 03/07/2020 Psoriasis 03/07/2020 History of cerebrovascular accident 03/07/2020 Atrial fibrillation ([facility]) 03/07/2020 Chronic obstructive pulmonary disease ([facility]) 03/07/2020 Finger osteomyelitis, right ([facility]) 03/06/2020 Medical Precautions: No active isolations Proper [...] Responsibilities: Independent Receives Help From: None Active Assistant Oceanographer: Yes Prior Level of Function ADL Assistance: [...] of Care supervision is transferred to a [facility] Therapy Services Occupational Therapist. Goals and/or treatment plan was established in collaboration with patient/family/other representatives. Hospitalist Progress Note 04/11/2024 Subjective: Admit Date: 04/03/2024 PCP: Jared Evans MD Room#: N4-461/N4461 B BRIEF HOSPITAL COURSE: 83-year-old woman with history of A-fib on Eliquis, tobacco use, hypertension, hyperlipidemia, asthma, hiatal hernia, GERD presented to [facility] on 04/03 with right leg pain, numbness, tingling causing difficulty ambulating. 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 She underwent venous thrombectomy with vascular [...] person, place, and time. Medications: Scheduled PRN Lfdoqtevvtk-Fbsmkepnj-Swhygy, 1 puff, Inhalation, Daily influenza, 0.5 mL, [...] Jordin Roldan MD Division of Hospitalist Medicine [facility] [place] Images from the original note were not included. PHYSICAL THERAPY [facility] Initial Evaluation Name/MRN: Mel Pop ([id number]) Evaluation Date: 04/11/2024 Date of : 1940 Admission Date: 04/03/2024 5:47 PM Age: 83 y.o. 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 Cellulitis 05/18/2022 Nicotine use disorder 05/18/2022 Irritable bowel syndrome with diarrhea 03/07/2020 Microscopic hematuria 03/07/2020 Left retinal detachment 03/07/2020 Hyperglycemia 03/07/2020 Osteopenia of left femoral neck 03/07/2020 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 03/07/2020 Seasonal allergies 03/07/2020 Chronic renal insufficiency, stage III (moderate) ([facility]) 03/07/2020 Major depression, single episode, in complete remission ([facility]) 03/07/2020 Gastroesophageal reflux disease without esophagitis 03/07/2020 Essential hypertension 03/07/2020 Pure hypercholesterolemia 03/07/2020 Overweight 03/07/2020 Psoriasis 03/07/2020 History of cerebrovascular accident 03/07/2020 Atrial fibrillation (HCC) 03/07/2020 Chronic obstructive pulmonary disease (HCC) 03/07/2020 Finger osteomyelitis, right ([facility]) 03/06/2020 Medical Precautions: No active isolations Proper [...] of Care supervision is transferred to a [facility] Therapy Services Physical Therapist. Goals and/or treatment plan was established in collaboration with patient/family/other representatives. [facility] Anticoagulation Management Service ([facility]) Inpatient Warfarin Consult HPI: Mel Pop is a 83 y.o. female admitted on 04/03/2024 for Peripheral arterial disease (HCC). Past Medical History: Diagnosis Date Asthma Essential hypertension 03/07/2020 GERD (gastroesophageal reflux disease) Hiatal hernia Pure hypercholesterolemia 03/07/2020 Patient is newly referred to the [facility] clinic for warfarin management. Pt was referred [...] PharmD GABRIELLA Consult Service is available daily [phone] via [employer] Secure Chat. If no response, please page [phone]. Hospitalist Progress Note 04/10/2024 Subjective: Admit Date: 04/03/2024 PCP: Jared Evans MD Room#: N4-041/N4-738 B BRIEF HOSPITAL COURSE: 83-year-old woman with history of A-fib on Eliquis, tobacco use, hypertension, hyperlipidemia, asthma, hiatal hernia, GERD presented to [facility] on 04/03 with right leg pain, numbness, tingling causing difficulty ambulating. 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 She underwent venous thrombectomy with vascular [...] Contact: CastilloJosé Miguel/ Fidel Mobile Relation: Child Jordin Roldan MD Division of Hospitalist Medicine [facility] [place] Nutrition update completed. Chart reviewed. Patient to be monitored and followed by the diet product technician. KEITH Farrar [facility] Anticoagulation Management Service ([facility]) Inpatient Warfarin Consult HPI: Mel Pop is a 83 y.o. female admitted on 04/03/2024 for Peripheral arterial disease (HCC). Past Medical History: Diagnosis Date Asthma Essential hypertension 03/07/2020 GERD (gastroesophageal reflux disease) Hiatal hernia Pure hypercholesterolemia 03/07/2020 Patient is newly referred to the [facility] clinic for warfarin management. Pt was referred [...] Will determine if pt is agreeable to [facility] follow-up. 4. Will provide warfarin education. Marybeth Rahman RPh, PharmD [facility] Consult Service is available daily [phone] via [employer] Secure Chat. If no response, please page [phone]. Hospitalist Progress Note 04/09/2024 Assessment/Plan: Data: (CAT1) [...] asthma, hiatal hernia, GERD who presented to [place] 04/03 with right leg pain, numbness, tingling causing difficulty ambulating. CTA of LE, showing severe LE atherosclerotic disease with bilateral superficial femoral artery occlusion, and was transferred to [facility] for admission. Interval History: Mild shortness [...] Robert Vigil MD Division of Hospitalist Medicine [facility] [place] [facility] Anticoagulation Management Service ([facility]) Inpatient Warfarin Consult HPI: Mel Pop is a 83 y.o. female admitted on 04/03/2024 for Peripheral arterial disease (HCC). Past Medical History: Diagnosis Date Asthma Essential hypertension 03/07/2020 GERD (gastroesophageal reflux disease) Hiatal hernia Pure hypercholesterolemia 03/07/2020 Patient is newly referred to the [facility] clinic for warfarin management. Pt was referred [...] PharmD [facility] Consult Service is available daily [phone] via [employer] Secure Viepage. If no response, please page [phone]. Hospitalist Progress Note 04/08/2024 Assessment/Plan: Data: (CAT1) [...] asthma, hiatal hernia, GERD who presented to [place] 04/03 with right leg pain, numbness, tingling causing difficulty ambulating. CTA of LE, showing severe LE atherosclerotic disease with bilateral superficial femoral artery occlusion, and was transferred to [facility] for admission. Interval History: Pain continues [...] Robert Vigil MD Division of Hospitalist Medicine [facility] [place] [facility] Anticoagulation Management Service ([facility]) Inpatient Warfarin Consult HPI: Mel Pop is a 83 y.o. female admitted on 04/03/2024 for Peripheral arterial disease (HCC). Past Medical History: Diagnosis Date Asthma Essential hypertension 03/07/2020 GERD (gastroesophageal reflux disease) Hiatal hernia Pure hypercholesterolemia 03/07/2020 Patient is newly referred to the [facility] clinic for warfarin management. Pt was referred by Anthony K Mergy, FILLER SHREDDER - EDUCATION PROGRAM COORDINATOR. Pt is on warfarin for DVT and [...] PharmD [facility] Consult Service is available daily [phone] via [employer] Secure Chat. If no response, please page [phone]. Hospitalist Progress Note 04/07/2024 Assessment/Plan: Data: (CAT1) [...] Anticipate DC pending clinical improvement and pain., Sheeter Helper recommendations, Coumadin bridge with heparin Total time [...] asthma, hiatal hernia, GERD who presented to [place] 04/03 with right leg pain, numbness, tingling causing difficulty ambulating. CTA of LE, showing severe LE atherosclerotic disease with bilateral superficial femoral artery occlusion, and was transferred to [facility] for admission. Interval History: Pain improved [...] Robert Vigil MD Division of Hospitalist Medicine [facility] [place] [facility] Anticoagulation Management Service ([facility]) Inpatient Warfarin Consult HPI: Mel Pop is a 83 y.o. female admitted on 04/03/2024 for Peripheral arterial disease (HCC). Past Medical History: Diagnosis Date Asthma Essential hypertension 03/07/2020 GERD (gastroesophageal reflux disease) Hiatal hernia Pure hypercholesterolemia 03/07/2020 Patient is newly referred to the [facility] clinic for warfarin management. Pt was referred [...] Will determine if pt is agreeable to [facility] follow-up. 4. Will provide warfarin education. Michelle Lugo [facility], PharmD [facility] Consult Service is available daily [phone] via Epic Secure Chat. If no response, please page [phone]. Department of General Surgery Daily Progress Note [...] George Sarah MD PGY5, General Surgery Pager #[phone] CDI Query Response: Acute thrombus within the [...] Anticipate DC pending clinical improvement and pain., Sheeter Helper recommendations, Coumadin bridge with heparin Total time [...] asthma, hiatal hernia, GERD who presented to [place] 04/03 with right leg pain, numbness, tingling causing difficulty ambulating. CTA of LE, showing severe LE atherosclerotic disease with bilateral superficial femoral artery occlusion, and was transferred to [facility] for admission. Interval History: Has significant [...] Vigil MD Division of Hospitalist Medicine [facility] Department of General Surgery Daily Progress Note [...] questions have been answered to their satisfaction. [facility] Anticoagulation Management Service ([facility]) Inpatient Warfarin Consult HPI: Mel Pop is a 83 y.o. female admitted on 04/03/2024 for Peripheral arterial disease (HCC). Past Medical History: Diagnosis Date Asthma Essential hypertension 03/07/2020 GERD (gastroesophageal reflux disease) Hiatal hernia Pure hypercholesterolemia 03/07/2020 Patient is newly referred to the [facility] clinic for warfarin management. Pt was referred [...] yesterday for thrombectomy today. Per Dr. Vigil, OK to resume warfarin tonight - will give 2.5mg. Bridging with heparin drip. 2. Will monitor for s/s of bleeding and drug interactions and adjust dose accordingly. 3. Will determine if pt is agreeable to [facility] follow-up 4. Will provide warfarin education. Marybeth Rahman RPh, PharmD [facility] Consult Service is available daily [phone] via [employer] Secure Chat. If no response, please page [phone]. Hospitalist Progress Note 04/05/2024 Assessment/Plan: Data: (CAT1) [...] Discharge Disposition: Anticipate DC pending clinical improvement, portfolio consultant recommendations Total time spent (which include [...] asthma, hiatal hernia, GERD who presented to [place] 04/03 with right leg pain, numbness, tingling causing difficulty ambulating. CTA of LE, showing severe LE atherosclerotic disease with bilateral superficial femoral artery occlusion, and was transferred to [facility] for admission. Interval History: Had more [...] Robert Vigil MD Division of Hospitalist Medicine [facility] [place] Nutrition rescreen completed. Chart reviewed. Patient to be monitored and followed by the diet product technician. KEITH Harmon [facility] Anticoagulation Management Service ([facility]) Inpatient Warfarin Consult HPI: Mel Pop is a 83 y.o. female admitted on 04/03/2024 for Peripheral arterial disease (HCC). Past Medical History: Diagnosis Date Asthma Essential hypertension 03/07/2020 GERD (gastroesophageal reflux disease) Hiatal hernia Pure hypercholesterolemia 03/07/2020 Patient is newly referred to the [facility] clinic for warfarin management. Pt was referred [...] PharmD [facility] Consult Service is available daily [phone] via [employer] Secure Chat. If no response, please page [phone]. Department of General Surgery Daily Progress Note [...] Naik MD General Surgery PGY-4 Pager # [phone] Associated attestation - Kristyn Blankenship MD - [...] NPO at midnight for possible thrombectomy tomorrow. [facility] Anticoagulation Management Service ([facility]) Inpatient Warfarin Consult HPI: Mel Pop is a 83 y.o. female admitted on 04/03/2024 for Peripheral arterial disease (HCC). Past Medical History: Diagnosis Date Asthma Essential hypertension 03/07/2020 GERD (gastroesophageal reflux disease) Hiatal hernia Pure hypercholesterolemia 03/07/2020 Patient is newly referred to the [facility] clinic for warfarin management. Pt was referred [...] Will determine if pt is agreeable to [facility] follow-up 4. Will provide warfarin education. Thank you for this consult Marybeth Rahman RPh, PharmD [facility] Consult Service is available daily [phone] via [employer] Secure Viepage. If no response, please page [phone]. Nonbillable encounter. Patient was seen by provider earlier today Patient is an 83-year-old female with history of A-fib on Eliquis, significant tobacco use, HTN, HLD, asthma, hiatal hernia, GERD who presented to [place] 04/03 with right leg pain, numbness, tingling causing difficulty ambulating. CTA of LE, showing severe LE atherosclerotic disease with bilateral superficial femoral artery occlusion, and was transferred to [facility] for admission. Severe bilateral LE atherosclerotic [...] Eliquis -Smoking cessation documented in this encounter [facility] 04-13-2024 Note Formatting of this n ote is different from the original. Images from the original note were not included. Care Management Progress Note INR 2.3 today. Hep drip continued, plan to DC to [facility] today. Plan to have PT seen patient today per her request. Patient is active with [facility]. Await treatment plan and clinical progress. retail associate manager bilingual will continue to follow for transitional care [...] Length of Stay (Days): 10 GMLOS: 4 [facility] 04-13-2024 Note Formatting of this n ote is different from the original. Images from the original note were not included. Care Management Progress Note INR 2.3 today. Hep drip continued, plan to DC to [facility] today. Plan to have PT seen patient today per her request. Patient is active with [facility]. Await treatment plan and clinical progress. retail associate manager bilingual will continue to follow for transitional care [...] Length of Stay (Days): 10 GMLOS: 4 [facility] 04-13-2024 Plan of care note The [...] plan, medications, and discharge instructions Outcome: Progressing [facility] 04-12-2024 Plan of care note Problem: [...] risk of patient condition declining or worsening [facility] 04-12-2024 Note Formatting of this n ote is different from the original. Images from the original note were not included. Care Management Progress Note Patent currently still on Hep Drip, INR 1.9. Will convert to oral when appropriate. Pt active with [facility]- will continue services at discharge. Await treatment plan and clinical progress. retail associate manager bilingual will continue to follow for transitional care needs for discharge planning. Discharge Milestones and Delays Expected date/time: 04/13/2024 Expected discharge disposition: Home Health Services Discharge Milestones Place discharge order Complete med reconciliation Case mgmt discharge readiness Clinical Stability Diagnostic Workup Sheeter Helper Recommendations Facility Choice Selection Imaging Results PT discharge readiness OT discharge readiness Patient Education Complete Expected Discharge History Expected Date/Time Set By Reviewed At 04/13/2024 Cathi Avila RN 04/12/2024 8:02 AM hep gtt- transitioning to coumadin, INR 1.9" 04/11/2024 Cathi Avila RN 04/11/2024 8:03 AM 04/11/2024 Cathi Avila RN 04/10/2024 8:41 AM hep gtt- transitioning to coumadin" 04/10/2024 Virginia Rehmna RN 04/09/2024 8:13 AM 04/08/2024 Virginia Rehman, RADHA 04/06/2024 8:13 AM hep gtt, poss thrombectomy 04/07/2024 Virginia Rehman RN 04/05/2024 8:03 AM hep gtt, poss thrombectomy tomorrow" 04/06/2024 Virginia Rehman RN 04/04/2024 8:48 AM hep gtt, [place], vasc consult" 04/06/2024 SEBASTIAN Herrera CNP 04/04/2024 4:04 AM 04/06/2024 SEBASTIAN Herrera CNP 04/03/2024 11:17 PM Length of Stay (Days): 9 GMLOS: 4 [facility] 04-12-2024 Note Formatting of this n ote is different from the original. Images from the original note were not included. Care Management Progress Note Patent currently still on Hep Drip, INR 1.9. Will convert to oral when appropriate. Pt active with [facility]- will continue services at discharge. Await treatment plan and clinical progress. retail associate manager bilingual will continue to follow for transitional care needs for discharge planning. Discharge Milestones and Delays Expected date/time: 04/13/2024 Expected discharge disposition: Home Health Services Discharge Milestones Place discharge order Complete med reconciliation Case mgmt discharge readiness Clinical Stability Diagnostic Workup Sheeter Helper Recommendations Facility Choice Selection Imaging Results PT [...] Length of Stay (Days): 9 GMLOS: 4 [facility] 04-12-2024 Plan of care note [...] plan, medications, and discharge instructions Outcome: Progressing [facility] 04-11-2024 Note Formatting of this n ote is different from the original. Images from the original note were not included. Care Management Progress Note Patent currently still on Hep Drip, INR 1.9. Will convert to oral when appropriate. Pt active with [facility]- will continue services at discharge. Await treatment plan and clinical progress. retail associate manager bilingual will continue to follow for transitional care [...] Length of Stay (Days): 8 GMLOS: 4 [facility] 04-11-2024 Note Formatting of this n ote is different from the original. Images from the original note were not included. Care Management Progress Note Patent currently still on Hep Drip, INR 1.9. Will convert to oral when appropriate. Pt active with [facility]- will continue services at discharge. Await treatment plan and clinical progress. retail associate manager bilingual will continue to follow for transitional care [...] Length of Stay (Days): 8 GMLOS: 4 [facility] 04-11-2024 Plan of care note Problem: [...] risk of patient condition declining or worsening [facility] 04-11-2024 Plan of care note The [...] level or baseline comfort level Outcome: Progressing [facility] 04-10-2024 Plan of care note Problem: [...] risk of patient condition declining or worsening [facility] 04-10-2024 Note Formatting of this n ote is different from the original. Images from the original note were not included. Care Management Progress Note Patient currently still on Heparin Drip, INR 1.6 today.Will convert to oral when appropriate. Pt active with [facility]- will continue services at discharge. Await treatment plan and clinical progress. retail associate manager bilingual will continue to follow for transitional care needs for discharge planning. Discharge Milestones and Delays Expected date/time: 04/11/2024 Expected discharge disposition: Home or Self Care Discharge Milestones Place discharge order Complete med reconciliation Case mgmt discharge readiness Clinical Stability Diagnostic Workup Sheeter Helper Recommendations Facility Choice Selection Imaging Results Patient [...] vasc consult" 04/06/2024 Bernie Cutler APRN - EDUCATION PROGRAM COORDINATOR 04/04/2024 4:04 AM 04/06/2024 SEBASTIAN Herrera CNP 04/03/2024 11:17 PM Length of Stay (Days): 7 GMLOS: 4 [facility] 04-10-2024 Note Formatting of this n ote is different from the original. Images from the original note were not included. Care Management Progress Note Patient currently still on Heparin Drip, INR 1.6 today.Will convert to oral when appropriate. Pt active with [facility]- will continue services at discharge. Await treatment plan and clinical progress. retail associate manager bilingual will continue to follow for transitional care needs for discharge planning. Discharge Milestones and Delays Expected date/time: 04/11/2024 Expected discharge disposition: Home or Self Care Discharge Milestones Place discharge order Complete med reconciliation Case mgmt discharge readiness Clinical Stability Diagnostic Workup Sheeter Helper Recommendations Facility Choice Selection Imaging Results Patient [...] Length of Stay (Days): 7 GMLOS: 4 [facility] 04-09-2024 Note Formatting of this n ote is different from the original. Images from the original note were not included. Care Management Progress Note Remains on heparin gtt while transitioning to coumadin. Consult Hemology. Pt active with [facility]- will continue services at discharge. Await treatment plan and clinical progress. retail associate manager bilingual will continue to follow for transitional care needs for discharge planning. Discharge Milestones and Delays Expected date/time: 04/10/2024 Expected discharge disposition: Home or Self Care Discharge Milestones Place discharge order Complete med reconciliation Case mgmt discharge readiness Clinical Stability Diagnostic Workup Sheeter Helper Recommendations Facility Choice Selection Imaging Results Patient [...] vasc consult" 04/06/2024 Bernie Cutler APRN - EDUCATION PROGRAM COORDINATOR 04/04/2024 4:04 AM 04/06/2024 Bernie Cutler APRN - EDUCATION PROGRAM COORDINATOR 04/03/2024 11:17 PM Length of Stay (Days): 6 GMLOS: 3.1 [facility] 04-09-2024 Note Formatting of this n ote is different from the original. Images from the original note were not included. Care Management Progress Note Remains on heparin gtt while transitioning to coumadin. Consult Hemology. Pt active with [facility]- will continue services at discharge. Await treatment plan and clinical progress. retail associate manager bilingual will continue to follow for transitional care needs for discharge planning. Discharge Milestones and Delays Expected date/time: 04/10/2024 Expected discharge disposition: Home or Self Care Discharge Milestones Place discharge order Complete med reconciliation Case mgmt discharge readiness Clinical Stability Diagnostic Workup Sheeter Helper Recommendations Facility Choice Selection Imaging Results Patient [...] vasc consult" 04/06/2024 Bernie Cutler APRN - EDUCATION PROGRAM COORDINATOR 04/04/2024 4:04 AM 04/06/2024 Bernie Cutler APRN - EDUCATION PROGRAM COORDINATOR 04/03/2024 11:17 PM Length of Stay (Days): 6 GMLOS: 3.1 [facility] 04-08-2024 Plan of care note Progressing [facility] 04-07-2024 Plan of care note The [...] or baseline comfort level Outcome: Progressing . [facility] 04-07-2024 Hospital Discharge instructions Lolita Sarah [...] Rahman RPh - 04/13/2024 1:07 PM EDT [facility] will monitor your warfarin after you go home. [facility] Phone number: [phone]. Home care nurse will check your INR Monday 04/16 and [facility] will contact you with warfarin dosing instructions. 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 Seasonal [...] 8 oz) Mental Status: {HECTOR Patient Mental Status:56287} IV Access: {HECTOR IV Access:54726} Nursing Mobility/ADLs: Walking {MAHESH ADL:::"Independent"} Transfer {MAHESH ADL:::"Independent"} Bathing {MAHESH ADL:::"Independent"} Dressing {MAHESH ADL:::"Independent"} Toileting {MAHESH ADL:::"Independent"} Feeding {MAHESH ADL:::"Independent"} Perishable Freight Inspector {MAHESH ADL:::"Independent"} Med Delivery {yes/no:64793} Wound Care Documentation and Therapy: Elimination: Continence: [...] Weight: 72.3 kg Safety Concerns: {HECTOR Safety Concerns:20699} Impairments/Disabilities: {HECTOR Impairments/Disabilities:93832} Nutrition Therapy: Current Nutrition Therapy: {HECTOR Diet List:51239} Routes of Feeding: {routes of feedin} Liquids: {liquid consistency:05034} Daily Fluid Restriction: {daily fluid restriction:80353} Last Modified Barium Swallow with Video (Video Swallowing Test): {done not done:90591} Treatments at the Time of Hospital Discharge: Respiratory Treatments: Oxygen Therapy: {Therapy; copd oxygen:08550} Ventilator: {HECTOR Ventilator:60678} Rehab Therapies: {GEN THERAPY DISCIPLINE SCAL:7411245} Weight Bearing Status/Restrictions: {POD WEIGHT BEARIN} Other Medical Equipment (for information only, NOT a DME order): {Assistive Devices DME:31864} Other Treatments: Patient's personal belongings (please select all that are sent with patient): {HECTOR Patient Belongings:02394} RN SIGNATURE: {E-signature:03158} CASE MANAGEMENT/SOCIAL WORK SECTION Inpatient Status Date: Discharging to Facility/ Agency Name: [facility] Address: [address] [place] [address] Dialysis Facility (if applicable) Name: Address: Dialysis Schedule: Phone: Fax: [facility]General Foreman signature: {E-signature:02188} PHYSICIAN SECTION Name: Mel Pop Prognosis: {Rehab Prognosis:48076} Condition at Discharge: {Patient Condition:43244} Rehab Potential (if transferring to Rehab): {Rehab Prognosis:64184} Recommended Labs or Other Treatments After Discharge: The individual is being admitted to a nursing facility directly from an [facility] or a unit of a [facility] that is not operated by or licensed by [facility] under section 5119.14 or 5160-3-15.1 5 The individual requires the level of services provided by a nursing facility for the condition for which he or she was treated in the hospital and, Physician Certification: I certify the above information and transfer of Mel Pop is necessary for the continuing treatment of the diagnosis listed and that she requires {HECTOR Level of Care:01411} for {greater less than:19529} 30 days. Update Admission H&P: {HECTOR Changes in H&P:21036} PHYSICIAN SIGNATURE: {E-signature:09450} documented in this encounter [facility] 04-07-2024 Nurse Note NO changes to heparin infusion at this time. [facility] 04-06-2024 Note Formatting of this n ote is different from the original. Images from the original note were not included. Care Management Progress Note Pt s/p thrombectomy this am with vascular. Remains on heparin gtt while transitioning to coumadin. Pt active with [facility]- will continue services at discharge. Discharge [...] vasc consult" 04/06/2024 Bernie Cutler APRN - EDUCATION PROGRAM COORDINATOR 04/04/2024 4:04 AM 04/06/2024 Bernie Cutler APRN - SHAMIKA 04/03/2024 11:17 PM Length of Stay (Days): 3 GMLOS: 3.1 [facility] 04-06-2024 Note Formatting of this n ote is different from the original. Images from the original note were not included. Care Management Progress Note Pt s/p thrombectomy this am with vascular. Remains on heparin gtt while transitioning to coumadin. Pt active with [facility]- will continue services at discharge. Discharge [...] Length of Stay (Days): 3 GMLOS: 3.1 [facility] 04-06-2024 Note Formatting of this n ote might be different from the original. Patient report called to 4N RN and denies any further questions. Patient resting comfortably and no signs of distress. Per resident patient to lay flat for 2 hours and restart heparin GTT at 1215. Transport notified. [facility] 04-06-2024 Note Formatting of this n ote might be different from the original. Patient report called to 4N RN and denies any further questions. Patient resting comfortably and no signs of distress. Per resident patient to lay flat for 2 hours and restart heparin GTT at 1215. Transport notified. [facility] 04-06-2024 Note Formatting of this n ote might be different from the original. SW assisted patient with completion of Health Care Power of Management Supervisor. One copy placed in patient chart, one copy sent to medical records and two copies given to patient. Requested by patient, while at bedside this SW spoke to patient's son via patients phone to explain that HCPOA was being completed by patient. Patients son José Miguel Castillo ([phone]) agreed to be this patients agent on the HCPOA and confirmed understanding. [facility] 04-06-2024 Note Formatting of this n ote might be different from the original. SW assisted patient with completion of Health Care Power of Management Supervisor. One copy placed in patient chart, one copy sent to medical records and two copies given to patient. Requested by patient, while at bedside this SW spoke to patient's son via patients phone to explain that HCPOA was being completed by patient. Patients son José Miguel Castillo ([phone]) agreed to be this patients agent on the HCPOA and confirmed understanding. [facility] 04-06-2024 Note Formatting of this n ote [...] technique was used to place a 5 Jordanian sheath. A Bentson wire was able to be advanced in the inferior vena cava without difficulty. The 5 Jordanian sheath was then upsized to a 16 Jordanian sheath and the penumbra flash suction thrombectomy device was prepared per video conference specialist's instructions. The patient was also given 5000 units of heparin for systemic anticoagulation at this time. The Penumbra device was then inserted through the 16 Jordanian sheath and a suction thrombectomy was performed [...] device was removed as was the 16 Jordanian sheath and an 0 silk suture was [...] the case. Kristyn Blankenship MD Vascular Surgery [facility] 04-06-2024 Note Formatting of this n ote is different from the original. Date: 04/06/2024 Location: [facility] OR Name: Mel Pop, : 1940, Diagnosis Pre-op Diagnosis * Right leg DVT (HCC) [I82.401] Post-op Diagnosis * Right leg DVT (HCC) [I82.401] Procedures RIGHT LOWER EXTREMITY VENOUS MECHANICAL THROMBECTOMY 14115 - [place] PRQ TRANSLUMINAL MECHANICAL THROMBECTOMY VEIN Surgeons * Kristyn Blankenship - Primary Procedure Summary Anesthesia: General ASA: III Estimated Blood Loss: 300 mL Drains: * None in log * Staff: Oceanographer Assistant: Negrita Elizabeth, RN; Amira Burton RN Scrub Person: Linnette [...] antibiotics are not indicated for this procedure. [facility] 04-06-2024 Note Formatting of this n [...] technique was used to place a 5 Jordanian sheath. A Tymphanyson wire was able to be advanced in the inferior vena cava without difficulty. The 5 Jordanian sheath was then upsized to a 16 Jordanian sheath and the penumbra flash suction thrombectomy device was prepared per video conference specialist's instructions. The patient was also given 5000 units of heparin for systemic anticoagulation at this time. The Penumbra device was then inserted through the 16 Jordanian sheath and a suction thrombectomy was performed [...] device was removed as was the 16 Jordanian sheath and an 0 silk suture was [...] case. Kristyn Blankenship MD Vascular Surgery T [facility] 04-06-2024 Note Formatting of this n ote is different from the original. Date: 04/06/2024 Location: [facility] OR Name: Mel Pop, : 1940, Diagnosis Pre-op Diagnosis * Right leg DVT (HCC) [I82.401] Post-op Diagnosis * Right leg DVT (HCC) [I82.401] Procedures RIGHT LOWER EXTREMITY VENOUS MECHANICAL THROMBECTOMY 56799 - LA PRQ TRANSLUMINAL MECHANICAL THROMBECTOMY VEIN Surgeons * Kristyn Blankenship - Primary Procedure Summary Anesthesia: General ASA: III Estimated Blood Loss: 300 mL Drains: * None in log * Staff: Oceanographer Assistant: Negrita Elizabeth RN; Amira Burton RN Scrub [...] antibiotics are not indicated for this procedure. [facility] 04-06-2024 Note Formatting of this n ote might be different from the original. Dr Blankenship at bedside. She called family to update them on procedure time change T [facility] 04-06-2024 Note Formatting of this n ote might be different from the original. Dr Blankenship at bedside. She called family to update them on procedure time change [facility] 04-06-[address] Blankenship at bedside. She called family to update them on procedure time change [facility] 04-05-2024 Note Formatting of this n ote is different from the original. Images from the original note were not included. Care Management Progress Note Vascular following with noted plan for possible thrombectomy tomorrow. Remains on heparin gtt while transitioning to coumadin per oncology recommendation. Pt from home alone- indep and active with [facility]- will return. Discharge Milestones and Delays [...] oliva lower US, vasc consult" 04/06/2024 SEBASTIAN Herrear CNP 04/04/2024 4:04 AM 04/06/2024 Bernie Cutler APRN - SHAMIKA 04/03/2024 11:17 PM Length of Stay (Days): 2 GMLOS: 3.1 [facility] 04-05-2024 Note Formatting of this n ote is different from the original. Images from the original note were not included. Care Management Progress Note Vascular following with noted plan for possible thrombectomy tomorrow. Remains on heparin gtt while transitioning to coumadin per oncology recommendation. Pt from home alone- indep and active with [facility]- will return. Discharge Milestones and Delays [...] vasc consult" 04/06/2024 Bernie Cutler APRN - EDUCATION PROGRAM COORDINATOR 04/04/2024 4:04 AM 04/06/2024 Bernie Cutler APRN - EDUCATION PROGRAM COORDINATOR 04/03/2024 11:17 PM Length of Stay (Days): 2 GMLOS: 3.1 [facility] 04-05-2024 Plan of care note The patient is Moderately Stable - Low risk of patient condition declining or worsening The patient's goals for the shift include met The clinical goals for the shift include met [facility] 04-04-2024 Consult note Formatting of th is note is different from the original. Images from the original note were not included. [facility] Hematology Oncology Inpatient Consultation [facility] Mel Pop : 1940(83 y.o.) Date: [...] afib, hypertension, and GERD who presented to [facility] for right lower extremity pain. Reports [...] vessels. Vascular surgery recommended transfer to [facility]. PVR and BLE US results pending [...] called her listed contacts (her friend and [id number] however they do not manage her pill [...] eliquis. I have left a voicemail with [facility] pharmacy in [place] to see if the Eliquis is being [...] min Stress: No Stress Concern Present (04/04/2024) [employer] [place] [employer] - Occupational Stress Questionnaire Feeling of Stress : Not at all Social Connections: Moderately Isolated (04/04/2024) Social Connection and Isolation Panel [NHANES] Frequency of Communication with Friends and Family: More than three times a week Frequency of Social Gatherings with Friends and Family: More than three times a week Attends Tenriism Services: 1 to 4 times per year [...] 04/03/2024 Patient Name: MEL POP : 1940 [facility]#: [id number] Exam Date/Time: 04/03/2024 21:14 Procedure: CTA AORTA [...] 04/03/2024 [facility]: [facility] 1940 [id number] Exam Date/Time: 04/03/2024 21:06 Procedure: CT HEAD [...] completing clinical documentation as well as with [id number] patient care, performing a medically appropriate examination, counseling / educating the patient/family/caregiver, and ordering medications, tests, or procedures. Electronically signed by Anthony Grajeda, FILLER SHREDDER - EDUCATION PROGRAM COORDINATOR Attending Attestation Note: I have personally performed [...] well as answering questions. Andre Patel MD [facility] Work Phone: 04-04-2024 Consult note Formatting of th is note is different from the original. Images from the original note were not included. [facility] Hematology Oncology Inpatient Consultation [facility] Mel Pop : 1940(83 y.o.) Date: April 04, 2024 Attending: Dr. Patel Reason for consult: Primary Care Physician - Jared Evans MD Date of Admission - 04/03/2024 5:47 PM Subjective: Chief Complaint Patient presents with Numbness Leg Swelling HPI Mle Pop is a 83 y.o. woman with a history of severe atherosclerosis, COPD, former smoker, diverticulosis, afib, hypertension, and GERD who presented to [facility] for right lower extremity pain. Reports [...] vessels. Vascular surgery recommended transfer to [facility]. PVR and BLE US results pending [...] called her listed contacts (her friend and [id number] however they do not manage her pill [...] eliquis. I have left a voicemail with [facility] pharmacy in [place] to see if the Eliquis is being [...] min Stress: No Stress Concern Present (04/04/2024) [employer] [place] [employer] - Occupational Stress Questionnaire Feeling of Stress : Not at all Social Connections: Moderately Isolated (04/04/2024) Social Connection and Isolation Panel [NHANES] Frequency of Communication with Friends and Family: More than three times a week Frequency of Social Gatherings with Friends and Family: More than three times a week Attends Tenriism Services: 1 to 4 times per year [...] tablet 07/18/23 Yes Historical Provider, MD Mark Gmoez 100-62.5-25 MCG/ACT aerosol powder 05/19/23 Yes Historical [...] 04/03/2024 [facility]: [facility] 1940 [id number] Exam Date/Time: 04/03/2024 21:14 Procedure: CTA AORTA [...] 04/03/2024 Patient Name: [facility]EL [facility] : 1940 [id number] Exam Date/Time: 04/03/2024 21:06 Procedure: CT HEAD [...] completing clinical documentation as well as with [id number] patient care, performing a medically appropriate examination, counseling / educating the patient/family/caregiver, and ordering medications, tests, or procedures. Electronically signed by Anthony Grajeda APRN - EDUCATION PROGRAM COORDINATOR Attending Attestation Note: I have personally performed [...] Lolita Sarah MD PGY5, General Surgery Pager #[phone] Past Medical History: Diagnosis Date Asthma Essential [...] min Stress: No Stress Concern Present (04/04/2024) [employer] [place] [employer] - Occupational Stress Questionnaire Feeling of Stress : Not at all Social Connections: Moderately Isolated (04/04/2024) Social Connection and Isolation Panel [NHANES] Frequency of Communication with Friends and Family: More than three times a week Frequency of Social Gatherings with Friends and Family: More than three times a week Attends Tenriism Services: 1 to 4 times per year [...] TESTING: Patient Name: MEL POP : 1940 [facility]#: [id number] Exam Date/Time: 04/03/2024 21:14 Procedure: CTA AORTA [...] evidence of phlegmasia. Heparin gtt initiated at [facility] prior to transfer and continued here. She notes missed doses of her Eliquis. Recommend compression and elevation of the right lower extremity. Can consider mechanical thrombectomy however given patient's age, this may be more risk than of benefit. Will continue to monitor for symptom improvement on anticoagulation alone. documented in this encounter [facility] 04-04-2024 Note Formatting of this n ote might be different from the original. Care Managment Initial Assessment Date: 04/04/2024 Patient Name: Mel Pop : 1940 Patient Information Source of Information: Patient Cognition/Language: WFL - Within Functional Limits Permission given to speak with patient cash posting representative/caregiver as indicated: Confirmation of Payer with patient/family: Yes Payer Name: humana Dorris: No Confirmation of Primary Care Physician: Confirmed [...] Home Health Services Care Services Provider Name: [facility] Dialysis Type: NA Durable Medical Equipment: [...] home alone and indep. Pt active with [facility]- liaison following for continued services. Pt uses walker/cane at baseline. Pt has insurance, PCP and able to obtain meds. Pt's friends help with transportation. No needs antic at discharge. Virginia Rehman RN [facility] 04-04-2024 Note Formatting of this n ote might be different from the original. Care Managment Initial Assessment Date: 04/04/2024 Patient Name: Mel Pop : 1940 Patient Information Source of Information: Patient Cognition/Language: WFL - Within Functional Limits Permission given to speak with patient cash posting representative/caregiver as indicated: Confirmation of Payer with [...] Home Health Services Care Services Provider [facility] Dialysis Type: NA Durable Medical [...] home alone and indep. Pt active with [facility]- liaison following for continued services. Pt uses walker/cane at baseline. Pt has insurance, PCP and able to obtain meds. Pt's friends help with transportation. No needs antic at discharge. Virginia Rehman RN [facility] 04-04-2024 Note Formatting of this n ote is different from the original. Start PACC Note Home Health Referral Educated patient on Home Care and services available. Patient offered choice of available HHC and agreeable to SN/PT services with [facility] at Home - Home Care. [...] is noted as yes - consider a COOK CHILI evaluation once the patient returns home. START PATIENT REGISTRATION INFORMATION Order Information Order Signing Physician: Robert Vigil MD Service Ordered RN ?: Yes Service Ordered PT ?: Yes Service Ordered OT ?: No Service Ordered ST ?: No Service Ordered COOK CHILI?:No Service Ordered TREADLE CUT OFF SAW OPERATOR?: No Following Physician: Jared Evans MD Following Physician Overseeing Physician: Jared Evans MD (Required for Residents only) Agreeable to Follow? Yes Date/Time of Call 04/04/24 11:36 AM, Spoke with: Patient is a DEB. Care Coordination Same Day SOC?: No Primary Care Physician: Jared Evans MD Primary Care Physician Primary Care Physician Address: [address] [place] [address] Visit Instructions: N/A Service Discharge Location Type: Home with Home Care Service Facility Name: N/A Service Floor Facility: N/A Service Room No: N/A Demographics Patient Last Name: Jose Alberto Patient First Name: Mel Language/Communication Barrier: none [facility] [address] [address] [address] Service City: [place] Service ST: [place] Service ZIP: [address] Service Other phone numbers: Telephone Information: Emergency [...] Phone Number: na Caregiver Notes: N/A [employer] List No END PATIENT REGISTRATION INFORMATION Pt [...] intervention. Discharge Date: pending Referral Source-PACC: (Hospital/Unit): [facility] / N4-461/N4-461 B End PACC Note [facility] 04-04-2024 Note Formatting of this n ote is different from the original. Start PACC Note Home Health Referral Educated patient on Home Care and services available. Patient offered choice of available HHC and agreeable to SN/PT services with [facility] at Home - Home Care. [...] is noted as yes - consider a COOK CHILI evaluation once the patient returns home. START PATIENT REGISTRATION INFORMATION Order Information Order Signing Physician: Robert Vigil MD Service Ordered RN ?: Yes Service Ordered PT ?: Yes Service Ordered OT ?: No Service Ordered ST ?: No Service Ordered COOK CHILI?:No Service Ordered TREADLE CUT OFF SAW OPERATOR?: No Following Physician: Jared Evans MD Following Physician Overseeing Physician: Jared Evans MD (Required for Residents only) Agreeable to Follow? Yes Date/Time of Call 04/04/24 11:36 AM, Spoke with: Patient is a DEB. Care Coordination Same Day SOC?: No Primary Care Physician: Jared Evans MD Primary Care Physician Primary Care Physician Address: [address] [place] [id number] Visit Instructions: N/A Service Discharge Location Type: Home with Home Care Service Facility Name: N/A Service Floor Facility: N/A Service Room No: N/A Demographics Patient Last Name: Jose Alberto Patient First Name: Mel Language/Communication Barrier: none Service Address: [id number] [place] [address] [address] Service City: [place] Service ST: [place] Service ZIP: [address] Service Other phone numbers: Telephone Information: Emergency [...] Caregiver Phone Number: na Caregiver Notes: N/A [facility] List No END PATIENT REGISTRATION INFORMATION Pt [...] intervention. Discharge Date: pending Referral Source-PACC: (Hospital/Unit): [facility] / N4-461/N4-461 B End PACC Note [facility] 04-04-2024 Plan of care note The patient is Moderately Stable - Low risk of patient condition declining or worsening The patient's goals for the shift include safety The clinical goals for the shift include therapeutic aptt [facility] 04-04-2024 Note Formatting of this n ote might be different from the original. Patient is currently active with [facility] at Home. The patients current certification period will on 05/18/24. The patient is currently receiving PT services through the agency. [employer] to continue to follow. [facility] 09-18-2024 Note Formatting of this n ote might be different from the original. Patient is currently active with [facility] Home. The patients current certification period will on 05/18/24. The patient is currently receiving PT services through the agency. Supervisor [employer] to continue to follow. [facility] 04-04-2024 Consult note Associated Order (s): IP [...] Lolita Sarah MD PGY5, General Surgery Pager #[phone] Past Medical History: Diagnosis Date Asthma Essential [...] min Stress: No Stress Concern Present (04/04/2024) [employer] [place] [employer] - Occupational Stress Questionnaire Feeling of Stress : Not at all Social Connections: Moderately Isolated (04/04/2024) Social Connection and Isolation Panel [NHANES] Frequency of Communication with Friends and Family: More than three times a week Frequency of Social Gatherings with Friends and Family: More than three times a week Attends Tenriism Services: 1 to 4 times per year [...] TESTING: Patient Name: MEL POP : 1940 [facility]#: [id number] Exam Date/Time: 04/03/2024 21:14 Procedure: CTA AORTA [...] evidence of phlegmasia. Heparin gtt initiated at [facility] prior to transfer and continued here. She notes missed doses of her Eliquis. Recommend compression and elevation of the right lower extremity. Can consider mechanical thrombectomy however given patient's age, this may be more risk than of benefit. Will continue to monitor for symptom improvement on anticoagulation alone. [facility] Work Phone: 04-04-2024 Note Formatting of this [...] - DO NOT do CPR, intubation] [_] [DNR-[employer] ENGINEER - Comfort care only] [_] DNR form [...] family/surrogate. Pratibha Avelar DO [facility] 04/04/2024, 5:40 AM [facility] 04-04-2024 Note Formatting of this [...] - DO NOT do CPR, intubation] [_] [DNR-[employer] ENGINEER - Comfort care only] [_] DNR form [...] Acute care solutions 04/04/2024, 5:40 AM T [facility] 04-04-2024 History and physical note [...] min Stress: No Stress Concern Present (04/04/2024) [place] [place] [employer] - Occupational Stress Questionnaire Feeling of Stress : Not at all Social Connections: Moderately Isolated (04/04/2024) Social Connection and Isolation Panel [NHANES] Frequency of Communication with Friends and Family: More than three times a week Frequency of Social Gatherings with Friends and Family: More than three times a week Attends Tenriism Services: 1 to 4 times per year [...] DO Division of Hospitalist Medicine Inpatient Medical Services/[facility] Work Phone: 04-04-2024 Note [facility] 04-04-2024 History and physical note [...] min Stress: No Stress Concern Present (04/04/2024) [employer] [place] [employer] - Occupational Stress Questionnaire Feeling of Stress : Not at all Social Connections: Moderately Isolated (04/04/2024) Social Connection and Isolation Panel [NHANES] Frequency of Communication with Friends and Family: More than three times a week Frequency of Social Gatherings with Friends and Family: More than three times a week Attends Tenriism Services: 1 to 4 times per year [...] DO Division of Hospitalist Medicine Inpatient Medical Services/[facility] documented in this encounter [facility] 04-04-2024 Plan of care note The patient is Moderately Stable - Low risk of patient condition declining or worsening The patient's goals for the shift include met The clinical goals for the shift include met Over the shift, the patient did not make progress toward the following goals. Barriers to progression include . Recommendations to address these barriers include . [facility] 04-04-2024 Emergency department Note Report to Delia Bond RN 04/04/24341 [facility] 04-04-2024 Emergency department Note Report to Delia Bond RN 04/04/24341 Multiple attempts made to call report to [facility] with 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 Will try again. Shannon Bond RN 04/04/24 033 [facility] at bedside to transport pt to [facility]. Paperwork with EMS Shannon Bond RN [...] Resource Strain: Low Risk (05/18/2022) Received from [facility] Overall Financial Resource Strain (CARDIA) Difficulty of Paying Living Expenses: Not hard at all Food Insecurity: No Food Insecurity (05/18/2022) Received from [facility] Hunger Vital Sign Worried About Running Out of Food in the Last Year: Never true Ran Out of Food in the Last Year: Never true Transportation Needs: No Transportation Needs (05/18/2022) Received from [facility] PRAPARE - Transportation Lack of Transportation (Medical): No Lack of Transportation (Non-Medical): No Housing Stability: Unknown (05/18/2022) Received from [facility] Housing Stability Vital Sign Unable [...] 82. I also reviewed external records from [facility]. I discussed their care with [facility]. Consideration for escalation of care with: Admission/observation discussed case with Dr. 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 Patient admitted to [facility]. Patient in agreement with plan. Diagnostics [...] [employer] Winifred Cornell DO 04/06/24 9879 Pt presents via EMS from home. States [...] or other complaints. documented in this encounter [facility] 04-04-2024 Emergency department Note Multiple attempts made to call report to [facility] with 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 Will try again. Shannon Bond RN 04/04/24 4505 [facility] 04-04-2024 Emergency department Note [facility] at bedside to transport pt to [facility]. Paperwork with EMS Shannon Bond RN 04/04/244 [facility] 04-03-2024 Emergency department Triage note [...] upon arrival. No SOB or other complaints. [facility] 04-03-2024 Physician Emergency department Note [...] Resource Strain: Low Risk (05/18/2022) Received from [facility] Overall Financial Resource Strain (CARDIA) Difficulty of Paying Living Expenses: Not hard at all Food Insecurity: No Food Insecurity (05/18/2022) Received from [facility] Hunger Vital Sign Worried About Running Out of Food in the Last Year: Never true Ran Out of Food in the Last Year: Never true Transportation Needs: No Transportation Needs (05/18/2022) Received from [facility] PRAPARE - Transportation Lack of Transportation (Medical): No Lack of Transportation (Non-Medical): No Housing Stability: Unknown (05/18/2022) Received from [facility] Housing Stability Vital Sign Unable [...] Phys[facility] (Per Emergency Physician): Interpretation per [...] extremities will heparinize or admit her to [facility] in case she needs an [...] to contact the dictating provider for clarification.) SEBASTINA Herrera CNP (electronically signed) Emergency Medicine Provider SEBASTIAN Herrera CNP 04/03/24 2239 [facility] 04-03-2024 Physician Emergency department Note Emergency Department Encounter [facility] Patient: Mel Pop : 1940 Date of Evaluation: 04/03/2024 ED Supervising Physician: Winifred Cornell, I personally evaluated Mel Pop and made/approved [...] recommends heparin drip and transferred to [facility], 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 Patient admitted to [facility]. Patient in agreement with plan. Diagnostics [...] contact the dictating provider for clarification.) Winifred Cornell, DO [employer] [facility] [employer] Winifred Brodericky 04/06/24 1625 [employer] Work Phone: 07-27-2023 History of Present illness Narrative [facility] [address] [place] [address] [address] [facility] [address] Dept: [phone] Dept Mel Pop 1940 [id number] 07/27/2023 HISTORY OF PRESENT ILLNESS: Mel is [...] improve. Electronically signed by Ming Weinberg MD [facility] Department of Orthopedic surgery 07/27/2023 5:21 PM Voice recognition was used for portions of this note and although it was reviewed prior to signing some incorrect words or phrases could be present. documented in this encounter [facility] 07-06-2022 Miscellaneous Notes PATIENT INFORMATION Record ID: [id number] Patient Name: Mel [facility]: [facility] [place]: [facility] Attending: Iwona Chu Center: Internal Medicine and Geriatrics INSTRUCTIONS All Clear SN to remind patient of next upcoming appointment date, time, location All Clear All Clear All Clear SURVEY INFORMATION Medical/Nurse National Expansion Recruiter: Inés Tubbs 1. Your discharge instructions are [...] (Standard Question) No documented in this encounter [facility] 06-29-2022 Note HNO ID: [id number] Author: Joana Tolbert [facility] Service: Pharmacy Author Type: Pharmacist [...] the physician. Post discharge follow up instruction Jamescheyenne Tolbert RPh June 29, 2022 3:32 PM [...] Your Medications These medications were sent to [facility] [address] [place] [id number] Hours: Tuesday-Tuesday, 8am-4:30pm apixaban 5 mg (74 tabs) ascorbic acid (vitamin C) 500 mg tablet bacitracin 500 unit/gram ointment guaiFENesin 600 mg 12 hr tablet HYDROcodone-acetaminophen 5-325 mg per tablet lactobacillus rhamnosus 10 billion cell capsule metoprolol tartrate (short acting) [address] 40 mg tablet sucralfate 1 gram tablet [facility] 06-29-2022 Note HNO ID: [id number] Author: Kassidy Mejia RN Service: Care Management Author Type: Registered Nurse Type: Care Mgt Progress Note Filed: 06/29/2022 12:39 PM Note Text: CARE MANAGEMENT DISCHARGE NOTE SERVICE DATE: 06/29/2022 SERVICE TIME: 12:38 PM LOS: 13 days Admission Date: 06/16/2022 DISCHARGE ARRANGEMENT (list agency and phone number) Discharge Arrangement: Home with Home Health Provider Name: [facility] CAREGIVER ASSESSMENT: Caregiver is ready, willing and able to meet the patient's needs as recommended by the inter-professional team:: Yes Patient's transition needs and plan for meeting these needs: [facility] HANDOFF COMMUNICATION: TRANSPORTATION ARRANGEMENTS: Transportation Arrangements: Car ADDITIONAL CONTACT RESOURCES: [facility] was able to approve and deliver home O2. SIGNATURE: Kassidy Mejia RN PATIENT NAME: Mel Castillo DATE: June 29, 2022 TIME: 12:38 PM PAGER/CONTACT #: [phone] [facility] 06-28-2022 Note HNO ID: [id number] Author: Iwona Chu DO Service: Hospital Medicine Author Type: Physician Type: Progress Notes Filed: 06/28/2022 8:58 PM Note Text: Needs O2 arranged before discharge [facility] 06-28-2022 Note HNO ID: [id number] Author: Irene Han RN Service: Care Management [...] In Person (verbalized understanding) Referral sent to [facility] for home going O2. Awaiting ambulatory pox to be completed. Plan to return home with family support and HHC through [facility]. Family to transport. Will need home O2/HC orders, prior to dc. IMM completed. UPDATE @ 1430: [facility] is outside of the patient's service area. Additional DMR referrals sent to [facility] and [facility]; awaiting response. Will need accepting DMR provider and home O2 delivery, prior to discharge. Oxygen/HC orders in [facility]. SIGNATURE: Irene Han RN PATIENT NAME: Mel Castillo DATE: June 28, 2022 TIME: 1:58 PM PAGER/CONTACT #: [phone] [facility] 06-28-2022 Note HNO ID: [id number] Author: Iwona Chu DO Service: Hospital Medicine [...] micropuncture needle and serially upsized to a 5-Jordanian sheath. A venogram was then performed, which [...] time, the sheath was upsized to an 8-Jordanian sheath. An intravascular ultrasound was performed. This [...] GI (more content not included)... [facility] 06-27-2022 Note HNO ID: [id number] Author: Iwona Chu DO Service: Hospital Medicine [...] micropuncture needle and serially upsized to a 5-Jordanian sheath. A venogram was then performed, which [...] time, the sheath was upsized to an 8-Jordanian sheath. An intravascular ultrasound was performed. This [...] hh (more content not included)... [facility] 06-26-2022 Note HNO ID: [id number] Author: Iwona Chu DO Service: Hospital Medicine [...] micropuncture needle and serially upsized to a 5-Jordanian sheath. A venogram was then performed, which [...] time, the sheath was upsized to an 8-Jordanian sheath. An intravascular ultrasound was performed. This [...] subacute/SNF (more content not included)... [facility] 06-25-2022 Note HNO ID: [id number] Author: Heron Ayers MD Service: Hospital Medicine [...] ORAL 2 TIMES DAILY Given, 06/25 0841 06/24/22181207/02/2259 06/16/221944 vte current anticoag therapy ([place], [place]) 06/16/221944 activity - mobilize patient ([place]) VTE Prophylaxis: VTE prophylaxis appropriate Disposition: Home Plan of care discussed with: Provider, RN, Patient SIGNATURE: Heron Ayers MD PATIENT NAME: Mel Castillo DATE: June 25, 2022 TIME: 12:03 PM etx [id number] [facility] 06-25-2022 Note HNO ID: [id number] Author: Kassidy Mejia RN Service: Care Management [...] 25, 2022 TIME: 11:30 AM PAGER/CONTACT #: [phone] [facility] 06-24-2022 Note HNO ID: [id number] Author: Richie Yi MD Service: General Internal Medicine Author Type: Physician Type: Progress Notes Filed: 06/24/2022 6:34 PM Note Text: DEPARTMENT OF HOSPITAL MEDICINE PROGRESS NOTE SERVICE DATE: 06/23/2022 SERVICE TIME: 7:19 PM Hospital Medicine/Primary Attending: Richie Yi MD NIGHT AND WEEKEND COVERAGE: [place] COVERAGE: After 7pm, please call cross cover pager #[phone] Subjective Patient was seen today. She is [...] 06/25/22 0300 06/16/221944 vte current anticoag therapy ([place]) 06/16/221944 activity - mobilize patient ([place]) VTE Prophylaxis: VTE prophylaxis appropriate Disposition: To be determined Plan of care discussed with: Provider, RN, Patient SIGNATURE: Richie Yi MD PATIENT NAME: Mel Castillo DATE: June 23, 2022 TIME: 7:19 PM etx [id number] [facility] 06-24-2022 Note HNO ID: [id number] Author: SHAQUILLE Kaye Service: Care Management Author Type: General Foreman Type: Care Mgt Progress Note Filed: 06/24/2022 [...] 24, 2022 TIME: 1:02 PM PAGER/CONTACT #: [phone] [facility] 06-23-2022 Note HNO ID: [id number] Author: Richie Yi MD Service: General Internal Medicine Author Type: Physician Type: Progress Notes Filed: 06/23/2022 7:28 PM Note Text: DEPARTMENT OF HOSPITAL MEDICINE PROGRESS NOTE SERVICE DATE: 06/23/2022 SERVICE TIME: 7:19 PM Hospital Medicine/Primary Attending: Richie Yi MD NIGHT AND WEEKEND COVERAGE: [place] COVERAGE: After 7pm, please call cross cover pager #[phone] Subjective Patient was seen today. She is [...] 1028 -- 06/16/221944 vte current anticoag therapy ([place]) 06/16/221944 activity - mobilize patient ([place], [place]) VTE Prophylaxis: VTE prophylaxis appropriate Disposition: To be determined Plan of care discussed with: Provider, RN, Patient SIGNATURE: Richie Yi MD PATIENT NAME: Mel Castillo DATE: June 23, 2022 TIME: 7:19 PM etx [id number] [facility] 06-23-2022 Note HNO ID: [id number] Author: Kassidy Mejia RN Service: Care Management Author Type: Registered Nurse Type: Care Mgt Progress Note Filed: 06/23/2022 4:00 PM Note Text: CARE MANAGEMENT PROGRESS NOTE SERVICE DATE: 06/23/2022 SERVICE TIME: 3:55 PM LOS: 7 days Spoke with pt at the bedside. Discussed SNF placement. Auth obtained for [facility]- pt would be responsible for copay 50% of cost per day for days 1-100. Pt refusing SNF at this time. Pt would like to d/c home with her son and dtr-in-law to ([address] [place] [address]). Pt would agreeable to [facility]- Referrals sent. Pt may need home O2- await ambulatory pulse ox. Family likely able to transport at d/c. CM to follow. SIGNATURE: Kassidy Mejia RN PATIENT NAME: Mel Castillo DATE: June 23, 2022 TIME: 3:53 PM PAGER/CONTACT #: [phone] [facility] 06-22-2022 Note HNO ID: [id number] Author: Dwayne Zaidi MD Service: Hospital Medicine Author Type: Physician Type: Progress Notes Filed: 06/22/2022 6:47 PM Note Text: DEPARTMENT OF HOSPITAL MEDICINE PROGRESS NOTE SERVICE DATE: 06/22/2022 SERVICE TIME: 6:42 PM Hospital Medicine/Primary Attending: Dwayne Zaidi MD NIGHT AND WEEKEND COVERAGE: After 7pm please page [phone] CHIEF COMPLAINT: Follow-up for acute left lower [...] bowel sounds normally heard, no mass palpable ENGLISH TUTOR- cranial nerves 2 to 12 grossly intact, [...] Labs 06/22/22 0609 06/20/22 0552 06/19/22 0513 06/18/226 06/17/22 0510 [...] -- (more content not included)... [facility] 06-22-2022 Note HNO ID: [id number] Author: Kassidy Mejia RN Service: Care Management Author Type: Registered Nurse Type: Care Mgt Progress Note Filed: 06/22/2022 10:15 AM Note Text: CARE MANAGEMENT PROGRESS NOTE SERVICE DATE: 06/22/2022 SERVICE TIME: 10:15 AM LOS: 6 days IMM Follow Up Copy Given: Yes Copy given to:: Patient Method: In Person (verbal) [facility]. Precert tasked. Pt will need cot for transport. CM to follow. SIGNATURE: Kassidy Mejia RN PATIENT NAME: Mel Castillo DATE: June 22, 2022 TIME: 10:14 AM PAGER/CONTACT #: [phone] [facility] 06-21-2022 Note HNO ID: [id number] Author: Dwayne Zaidi MD Service: Hospital Medicine Author Type: Physician Type: Progress Notes Filed: 06/21/2022 4:10 PM Note Text: DEPARTMENT OF HOSPITAL MEDICINE PROGRESS NOTE SERVICE DATE: 06/21/2022 SERVICE TIME: 4:04 PM Hospital Medicine/Primary Attending: Dwayne Zaidi MD NIGHT AND WEEKEND COVERAGE: After 7pm please page [phone] CHIEF COMPLAINT: Follow-up for acute left lower [...] bowel sounds normally heard, no mass palpable ENGLISH TUTOR- cranial nerves 2 to 12 grossly intact, [...] Has (more content not included)... [facility] 06-21-2022 Note HNO ID: [id number] Author: Kassidy Mejia RN Service: Care Management Author Type: Registered Nurse Type: Care Mgt Progress Note Filed: 06/21/2022 3:44 PM Note Text: CARE MANAGEMENT PROGRESS NOTE SERVICE DATE: 06/21/2022 SERVICE TIME: 3:41 PM LOS: 5 days Spoke with pt at the bedside. Pt states that she lives at home alone. PT/OT rec SNF. Pt would like [facility]- referral sent. Await acceptance. Pt will need precert when medically stable. Pt will need cot for transport. Cm to follow. SIGNATURE: Kassidy Mejia RN PATIENT NAME: Mel Castillo DATE: June 21, 2022 TIME: 3:41 PM PAGER/CONTACT #: [phone] [facility] 06-21-2022 Note HNO ID: [id number] Author: Primo Dodd APRN.EDUCATION PROGRAM COORDINATOR Service: Gastroenterology Author Type: Nurse Practitioner Type: [...] evidence (more content not included)... [facility] 06-20-2022 Note HNO ID: [id number] Author: Acacia Hardin DO Service: General Surgery Author Type: Resident Type: Plan of Care Filed: 06/20/2022 1:40 PM Note Text: Plan of Care Dr. 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 Spoke with Dr. Wilson, patient registration supervisor for Dr. Rodriguez, and she states these [...] oz) SpO2 97% BMI 26.94 kg/m? Acacia Hardin, 06/20/2022 1:36 PM [facility] 06-20-2022 Note HNO ID: [id number] Author: Dwayne Zaidi MD Service: Hospital Medicine Author Type: Physician Type: Progress Notes Filed: 06/20/2022 12:39 PM Note Text: DEPARTMENT OF HOSPITAL MEDICINE PROGRESS NOTE SERVICE DATE: 06/20/2022 SERVICE TIME: 12:35 PM Hospital Medicine/Primary Attending: Dwayne Zaidi MD NIGHT AND WEEKEND COVERAGE: After 7pm please page [phone] CHIEF COMPLAINT: Follow-up for acute left lower [...] bowel sounds normally heard, no mass palpable ENGLISH TUTOR- cranial nerves 2 to 12 grossly intact, [...] tahmina (more content not included)... [facility] 06-19-2022 Note HNO ID: [id number] Author: Dwayne Zaidi MD Service: Hospital Medicine Author Type: Physician Type: Progress Notes Filed: 06/19/2022 4:33 PM Note Text: DEPARTMENT OF HOSPITAL MEDICINE PROGRESS NOTE SERVICE DATE: 06/19/2022 SERVICE TIME: 4:29 PM Hospital Medicine/Primary Attending: Dwayne Zaidi MD NIGHT AND WEEKEND COVERAGE: After 7pm please page [phone] CHIEF COMPLAINT: Follow-up for acute left lower [...] bowel sounds normally heard, no mass palpable ENGLISH TUTOR- cranial nerves 2 to 12 grossly intact, Psych- A ANDO x 3 left lower extremity compression, mood chvao extremities-left lower extremity in compression bandage Skin- [...] Recent Labs 06/19/22 0513 06/18/22 0416 06/17/22 0506/16/22 034 GLUC 115* 112* 84 122* NA 133* 133* 137 139 K 4.4 4.4 4.3 4.4 CHLOR 105 102 107* 104 CO2 23 21* 21* 18* ANION 5* 10 9 17 BUN 22* 25* 27* 35* CREAT 0.94 1.17* 0.99* 1.14* CHEM: Recent Labs 06/19/22 0513 06/18/22 0416 06/17/22 0510 06/16/22340 ALB -- -- -- 3.2* TPROT -- [...] andrew (more content not included)... [facility] 06-18-2022 Note HNO ID: [id number] Author: Emanuel Hull MD Service: General Surgery [...] June 18, 2022 5:39 PM [facility] 06-18-2022 Note HNO ID: [id number] Author: Dwayne Zaidi MD Service: Hospital Medicine Author Type: Physician Type: Progress Notes Filed: 06/18/2022 5:37 PM Note Text: DEPARTMENT OF HOSPITAL MEDICINE PROGRESS NOTE SERVICE DATE: 06/18/2022 SERVICE TIME: 5:35 PM Hospital Medicine/Primary Attending: Dwayne Zaidi MD NIGHT AND WEEKEND COVERAGE: After 7pm please page [phone] CHIEF COMPLAINT: Follow-up for acute left lower [...] bowel sounds normally heard, no mass palpable ENGLISH TUTOR- cranial nerves 2 to 12 grossly intact, [...] Labs 06/18/22 0416 06/17/22 0510 06/16/22 0341 GLUC 112* 84 122* NA 133* 137 [...] for (more content not included)... [facility] 06-18-2022 Note HNO ID: [id number] Author: Kassidy Mejia RN Service: Care Management [...] no answer. left for pts POA friend Dmaaris to help with IA. Per notes await PT/OT evals- no currently order for therapy, notified. Cm to follow clinical progress. SIGNATURE: Kassidy Mejia RN PATIENT NAME: Mel Castillo DATE: June 18, 2022 TIME: 3:46 PM PAGER/CONTACT #: [phone] [facility] 06-17-2022 Note HNO ID: [id number] Author: Eliza Parikh RN Service: Nursing Author Type: Registered Nurse Type: Nursing Progress Note Filed: 06/17/2022 7:24 PM Note Text: Pt to 4200 via bed. Pt tolerated well. [facility] 06-17-2022 Note HNO ID: [id number] Author: Eliza Parikh RN Service: Nursing Author Type: Registered Nurse Type: Nursing Progress Note Filed: 06/17/2022 4:35 PM Note Text: Report to 4[address] FRAGA [facility] 06-17-2022 Note HNO ID: [id number] Author: Efrain Ivey ([facility] [employer]) Service: Pharmacy Author Type: Cement Storage Worker Type: Plan of Care Filed: 06/17/2022 2:16 PM Note Text: PHARMACY MEDICATION REVIEW Patient Name: Mel Castillo : 1940 The following medications were updated within the 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 medication list: Medications ADDED to 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 medication list amLODIPine (NORVASC) 10 mg tablet OTHER Yes Yes dexAMETHasone (DECADRON) 4 mg tablet OTHER Yes Yes lisinopril (ZESTRIL, PRINIVIL) 5 mg tablet OTHER Yes Yes RX filled via [employer] and verified with pt. herself Medications CHANGED on 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 medication list na Medications REMOVED from 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 medication list na Additional comments: I was able to talk with the pt. about her home medications. She states she takes the 3 RX medications recorded below. These 3 medications were added to her 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 list. She has finished Paxlovid and a physician stopped Augmentin per pt. interview Required follow up for nursing. Medication history completed by Historian. No nursing follow up required. The below information represents the best possible medication history: Yes Medication history completed by: Cement Storage Worker: Efrain Ivey ([facility] [employer]) Source of history: Patient: Reliability of source: Appears reliable, clearly identified: Medication name, Medication dose, Medication route, and Medication frequency and Pharmacy records: [employer] [facility] Medication nonadherence identified: No barriers noted Reconciliation completed: No, pharmacist not yet reviewed Patient interested in Bedside Delivery Services or using [facility] Pharmacy at discharge? No Preferred outpatient pharmacy: [id number] [place] [id number] - [address] [phone] [id number] Allergies: Percocet [Oxycodone* Itching Prior to Admission [...] once daily. Facility-Administered Medications: None Efrain Ivey (Handle Attacher) phone [phone] 06/17/2022 [facility] 06-17-2022 Note HNO ID: [id number] Author: Ladan Adame RN Service: Care Management Author Type: Registered Nurse Type: Care Mgt Progress Note Filed: 06/17/2022 12:38 PM Note Text: CARE MANAGEMENT PROGRESS NOTE SERVICE DATE: 06/17/2022 SERVICE TIME: 12:37 PM LOS: 1 day Needs Prior to Discharge: To Be Determined Epic notes reviewed. Patient in isolation for Covid. TC made to her friend/SHANNANSimran Rowan. Left a VM. Awaiting a return call. CM to continue to follow. SIGNATURE: Ladan Adame RN PATIENT NAME: Mel Castillo DATE: June 17, 2022 TIME: 12:37 PM PAGER/CONTACT #: [phone] [facility] 06-17-2022 Note HNO ID: [id number] Author: Eliza Parikh RN Service: Nursing Author Type: Registered Nurse Type: Nursing Progress Note Filed: 06/17/2022 10:40 AM Note Text: Echo at bedside [facility] 06-16-2022 Note HNO ID: [id number] Author: Cirilo Alaniz APRN.CRNA Service: Anesthesiology Author Type: Nurse Glass Inspector Type: Anesthesia Procedure Notes Filed: 06/16/2022 5:04 PM Note Text: ANESTHESIOLOGY PROCEDURE NOTE Airway General Information Procedure Start Time/Medication Administration: 06/16/2022 4:29 PM Patient location during procedure: OR Timeout Performed Pre-procedure: timeout performed Consent Obtained: Yes Patient identity confirmed: arm band and patient Staffing PERFORMANCE TEST CONSULTANT: Cirilo Alaniz APRN.PERFORMANCE TEST CONSULTANT Indications and Patient Condition Indications for airway [...] 1 Airway not difficult SIGNATURE: Cirilo Alaniz APRN.PERFORMANCE TEST CONSULTANT PATIENT NAME: Mel Castillo DATE: June 16, 2022 TIME: 5:03 PM CSN: [id number] [facility] 06-16-2022 Note HNO ID: [id number] Author: Jean Pierre Gamboa RPh Service: Pharmacy [...] patient. Signature: Jean Pierre Gamboa RPh Pager/Extension: [phone] [facility] 05-17-2022 History of Present illness Narrative [...] be seen in the emergency room at [facility] for probable admission for IV antibiotics and airway concern. Patient understands this and will leave shortly. Josiah Barnes MD Findings will be communicated to the referring physician via mail or electronic medical record. documented in this encounter [facility] 10-28-2022 Instructions Jared Velazquez PA-C - 05/14/2022 2:57 [...] Jared Velazquez PA-C documented in this encounter [facility] 05-14-2022 History of Present illness Narrative Images [...] which included preparing to see the patient, [id number] patient care, completing clinical documentation, performing a medically appropriate examination, counseling and educating the patient/family/caregiver, and ordering medications, tests, or procedures. 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 [facility] Diagnosis Acute bacterial sialadenitis- Primary Bashir's, angina [facility]* Diagnosis Localized swelling, mass and lump, neck Swelling, mass, or lump in head and neck [facility] Localized swelling, mass and lump, neck Swelling, mass, or lump in head and neck [facility] Diagnosis Localized swelling, mass and lump, neck- Primary Swelling, mass, or lump in head and neck Localized swelling, mass and lump, neck Swelling, mass, or lump in head and neck [facility] Other specified soft tissue disorders [facility] Diagnosis Localized swelling, mass and lump, neck- Primary Swelling, mass, or lump in head and neck Localized swelling, mass and lump, neck Swelling, mass, or lump in head and neck [facility] Diagnosis Abnormal findings on diagnostic imaging of other specified body structures Pain in left leg [facility] 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[facility] Diagnosis Other specified soft tissue disorders- Primary Other specified soft tissue disorders [facility] Diagnosis Abnormal findings on diagnostic imaging of other specified body structures- Primary Pain in left leg Abnormal findings on diagnostic imaging of other specified body structures Pain in left leg [facility]* Diagnosis Peripheral arterial disease (HCC)- Primary Unspecified peripheral vascular disease Right leg pain Pain in soft tissues of limb Peripheral arterial disease (HCC) Unspecified peripheral vascular disease Right leg weakness Muscle weakness (generalized) Atrial fibrillation, unspecified type (HCC) Ischemic leg Unspecified circulatory system disorder [facility]* Diagnosis Deep vein thrombosis (DVT) of lower extremity, unspecified chronicity, unspecified laterality, unspecified vein (HCC)- Primary [facility]* Diagnosis Atrial fibrillation, unspecified type (HCC) Acute venous embolism and thrombosis of deep vessels of proximal end of right lower extremity (HCC) documented [facility]* Diagnosis Acute deep vein thrombosis (DVT) of iliac vein of right lower extremity (HCC)- Primary PAD (peripheral artery disease) (HCC) Unspecified peripheral vascular disease [facility]* Diagnosis Deep vein thrombosis (DVT) of lower extremity, unspecified chronicity, unspecified laterality, unspecified vein (HCC) Atrial fibrillation, unspecified type (HCC) Acute venous embolism and thrombosis of deep vessels of proximal end of right lower extremity (HCC) documented [facility]* Diagnosis Atrial fibrillation, unspecified type (HCC) Acute venous embolism and thrombosis of deep vessels of proximal end of right lower extremity (HCC) [facility]* Diagnosis Atrial fibrillation, unspecified type (HCC) Acute venous embolism and thrombosis of deep vessels of proximal end of right lower extremity (HCC) documented [facility]* Diagnosis Paroxysmal atrial fibrillation (HCC) Atrial fibrillation [facility]* Diagnosis Atrial fibrillation, unspecified type [...] 3b CKD (HCC) 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 (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 Nicotine use disorder Tobacco use disorder Abnormal echocardiogram Nonspecific (abnormal) findings on radiological and other examination of other intrathoracic organs Left atrial mass documented in this encounter [facility] note* Diagnosis Retinal detachment, right- Primary Unspecified retinal detachment Vision loss of right eye Unqualified visual loss, one eye Acute intractable headache, unspecified headache type Visual disturbance, subjective Unspecified subjective visual disturbance Vision loss of right eye Unqualified visual loss, one eye Visual disturbance, subjective Unspecified subjective visual disturbance documented in this encounter [facility] note* Diagnosis 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 Hemorrhagic choroidal detachment Dislocation of intraocular lens, initial encounter [facility] Diagnosis 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 Hemorrhagic choroidal detachment documented in this encounter [facility] note* Diagnosis 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 Hemorrhagic choroidal detachment Dislocation of intraocular lens, initial encounter Hemorrhagic choroidal detachment of right eye Hemorrhagic choroidal detachment [facility]* Diagnosis 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 Hemorrhagic choroidal detachment Hemorrhagic choroidal detachment of right eye Hemorrhagic choroidal detachment [facility]* Diagnosis Postoperative eye state- Primary Other states following surgery of eye and adnexa Hemorrhagic choroidal detachment of right eye Hemorrhagic choroidal detachment Pseudophakia, right eye Lens replaced by other means Subluxation of right lens Subluxation of lens [facility]* Diagnosis Paroxysmal atrial fibrillation (HCC)- Primary Atrial fibrillation Paroxysmal atrial fibrillation (HCC) Atrial fibrillation documented in this encounter [facility] note* Diagnosis Postoperative eye state Other states following surgery of eye and adnexa Hemorrhagic choroidal detachment of right eye Hemorrhagic choroidal detachment Pseudophakia, right eye Lens replaced by other means Subluxation of right lens Subluxation of lens Hemorrhagic choroidal detachment of right eye Hemorrhagic choroidal detachment documented in this encounter [facility] note* Diagnosis Post-operative state- Primary Other postprocedural status [facility]* Diagnosis Postoperative eye state Other states following surgery of eye and adnexa Hemorrhagic choroidal detachment of right eye Hemorrhagic choroidal detachment Pseudophakia, right eye Lens replaced by other means Subluxation of right lens Subluxation of lens [facility]* Diagnosis Aspiration pneumonitis (CMS/HCC) (HCC)- Primary Pneumonitis due to inhalation of food or vomitus Aspiration pneumonitis (CMS/HCC) (HCC) Pneumonitis due to inhalation of food or vomitus Vomiting and diarrhea LORENZA (acute kidney injury) (HCC) [facility] Diagnosis Acute deep vein thrombosis (DVT) of iliac vein of right lower extremity (HCC)- Primary PAD (peripheral artery disease) (HCC) Unspecified peripheral vascular disease [facility] Diagnosis Postoperative eye state Other states following surgery of eye and adnexa Hemorrhagic choroidal detachment of right eye Hemorrhagic choroidal detachment Pseudophakia, right eye Lens replaced by other means Subluxation of right lens Subluxation of lens documented in this encounter [facility] note* Diagnosis 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 Hemorrhagic choroidal detachment Right retinal detachment Unspecified retinal detachment Postoperative eye state Other states following surgery of eye and adnexa Pseudophakia, right eye Lens replaced by other means Subluxation of right lens Subluxation of lens [facility] noteNo assessment information availableWZanesville City Hospital Work Phone: Evaluation note* Diagnosis PAD (peripheral artery disease) (HCC)- Primary Unspecified peripheral vascular disease Skin ulcer of toe of right foot, limited to breakdown of skin (HCC) [facility] Diagnosis Critical limb ischemia of right lower extremity (HCC)- Primary [facility]* Diagnosis Pre-op evaluation- Primary Skin ulcer of right great toe (HCC) Critical limb ischemia of right lower extremity (HCC) [facility] Diagnosis Skin ulcer of toe of right foot, limited to breakdown of skin (HCC)- Primary PAD (peripheral artery disease) (HCC) Unspecified peripheral vascular disease Aftercare following surgery of the circulatory system Aftercare following surgery of the circulatory system, NEC [facility] Diagnosis Skin ulcer of toe of right foot, limited to breakdown of skin (HCC) PAD (peripheral artery disease) (HCC) Unspecified peripheral vascular disease Aftercare following surgery of the circulatory system Aftercare following surgery of the circulatory system, NEC [facility] Diagnosis Aftercare following surgery of the circulatory system- Primary Aftercare following surgery of the circulatory system, NEC PAD (peripheral artery disease) (HCC) Unspecified peripheral vascular disease documented in this encounter [facility] note* Diagnosis 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 Hemorrhagic choroidal detachment documented in this encounter [facility] note* Diagnosis Right retinal detachment- Primary Unspecified retinal detachment Hemorrhagic choroidal detachment of right eye Hemorrhagic choroidal detachment Pseudophakia, right eye Lens replaced by other means documented in this encounter [facility] note* Diagnosis Acute deep vein thrombosis (DVT) of proximal vein of lower extremity, unspecified laterality (HCC)- Primary documented in this encounter [facility] for referral (narrative)No reason for referral information availableWZanesville City Hospital Work Phone: Reason for visit Narrative* Imaging (Routine) - Closed Specialty Diagnoses / Procedures Referred By Contac t Referred To Contact Cardiology Diagnoses Paroxysmal atrial fibrillation (HCC) Procedures Transthoracic echocardiogram (TTE) complete with contrast, bubble, strain, and 3D PRN LA ECHO TTHRC R-T 2D W/WOM-MODE COMPL SPEC&COLR D LA TTE W OR WO FOL WCON,Jared De La Garza MD [address] [place] [phone] Phone: tel: fax: Referral ID Status Reason Start Date Expiration Date Visits Re quested Visits Authorized [id number] Closed 04/20/2024 04/20/2025 1 1 [facility] for visit Narrative* Auth/Cert (Routine) Specialty Diagnoses / Procedures Referred By Contac t Referred To Contact Diagnoses Aspiration pneumonitis (CMS/HCC) (HCC) LORENZA (acute kidney injury) (HCC) Vomiting and diarrhea Procedures . Abbi Long DO [address] [place] [address] Phone: tel: fax: [facility] [address] [place] [address] Phone: tel: Referral ID Status Reason Start Date Expiration Date Visits Re quested Visits Authorized [id number] 1 1 [facility] for visit Narrative* Auth/Cert (Routine) Specialty [...] CATH RS&I CHG AORTOGRAPHY ABDOMINAL SERIALOGRAPHY RS&I LA INTRODUCTION CATHETER AORTA LA REVSC OPN/PRG FEM/POP W/ANGIOPLASTY UNI LA REVSC OPN/PRQ TIB/PAMELA W/ANGIOPLASTY UNI LA REVSC OPN/PRQ TIB/PAMELA W/STNT/ANGIOP SM VSL LA REVSC OPN/PRQ FEM/POP W/STNT/ANGIOP SM VSL AORTOILIAC ANGIOGRAPHY, RIGHT LOWER EXTREMITY ANGIOGRAPHY WITH RUNOFF, POSSIBLE SUPERFICIAL FEMORAL ARTERY/POPLITEAL/TIBIAL ANGIOPLASTY/STENTING Kristyn Blankenship MD [address] [place] [address] Phone: tel: fax: [facility] [address] [place] [address] Phone: tel: Referral ID Status Reason Start Date Expiration Date Visits Re quested Visits Authorized [id number] 1 1 [facility] for visit Narrative* Imaging (Routine) - Closed [...] Kristyn Blankenship MD [address] [place] [address] Phone: tel: fax: [facility] [address] [place] [phone] Phone: tel: fax: Referral ID Status Reason Start Date Expiration Date Visits Re quested Visits Authorized [id number] Closed 12/05/2024 12/05/2025 1 1 [facility] Discharge Instructions * Attachments The following attachments cannot be sent through Care Everywhere. * Pulp-Space Infection ([place]) documented in this encounter* Instructions* Tiffany Zhu [...] Documents on File Type Date Recorded Patient Medical Staff Physician Expl anation Power of Management Supervisor 04/06/2024 10:04 AM Date Activated Date Inactivated [...] Documents on File Type Date Recorded Patient Medical Staff Physician Expl anation Power of Management Supervisor 04/16/2024 1:26 PM Power of Management Supervisor 04/06/2024 10:04 AM Healthcare Agents on File [...] Documents on File Type Date Recorded Patient Medical Staff Physician Expl anation Power of Management Supervisor 04/16/2024 1:26 PM Power of Management Supervisor 04/06/2024 10:04 AM Date Activated Date Inactivated [...] Documents on File Type Date Recorded Patient Medical Staff Physician Expl anation Advance Directive(s) 06/27/2024 12:58 PM [...] Documents on File Type Date Recorded Patient Medical Staff Physician Expl anation Advance Directive(s) 06/27/2024 12:58 PM [...] Relationship Communication Damaris DO NOT CALL-TERMINALLY ILL [place] Friend First Alternate Health Care Agent Nadira Castillo Mother First Alternat e Health Care Agent Date Activated Date Inactivated Comments 07/07/2024 12:21 PM 07/18/2024 5:56 PM Documents on File Type Date Recorded Patient Medical Staff Physician Expl anation DNR (Do Not Resuscitate) 07/13/2024 10:35 AM Power of Management Supervisor 04/16/2024 1:26 PM Power of Management Supervisor 04/06/2024 10:04 AM Date Activated Date Inactivated [...] Documents on File Type Date Recorded Patient Medical Staff Physician Expl anation DNR (Do Not Resuscitate) 07/13/2024 10:35 AM Power of Management Supervisor 04/16/2024 1:26 PM Power of Management Supervisor 04/06/2024 10:04 AM Date Activated Date Inactivated [...] First Alternate Health Care Agent Nadira Castillo Uwghrmij-eq-xoq First Alternat e Health Care Agent Healthcare Agents on File Name Relationship Healthcare Agent Relationship Communication Damaris DO NOT CALL-TERMINALLY ILL [place] Friend First Alternate Health Care Agent Nadira Castillo Chqszgmc-ua-nlo First Alternat e Health Care Agent Healthcare Agents on File Name Relationship Healthcare Agent Relationship Communication Damaris DO NOT CALL-TERMINALLY ILL [place] Friend First Alternate Health Care Agent Nadira Castillo [id number] First Alternat e Health Care Agent Date Activated Date Inactivated Comments 08/03/2024 10:17 AM 08/16/2024 4:47 PM Healthcare Agents on File Name Relationship Healthcare Agent Relationship Communication Damaris DO NOT CALL-TERMINALLY ILL [place] Friend First Alternate Health Care Agent Nadira Castillo Cdebpzgz-hx-vkt First Alternat e Health Care Agent Healthcare Agents on File Name Relationship Healthcare Agent Relationship Communication Damaris DO NOT CALL-TERMINALLY ILL [place] Friend First Alternate Health Care Agent Nadira Castillo Gipftkdn-gz-pto First Alternat e Health Care Agent Healthcare Agents on File Name Relationship Healthcare Agent Relationship Communication Damaris DO NOT CALL-TERMINALLY ILL [place] Friend First Alternate Health Care Agent Nadira Castillo Wzbihjcf-dt-upi First Alternat e Health Care Agent Healthcare Agents on File Name Relationship Healthcare Agent Relationshi p Communication Nadira Castillo Wyylhwiy-ml-jkf First Alternat e Health Care Agent Healthcare Agents on File Name Relationship Healthcare Agent Relationshi p Communication Nadira Castillo Uamzgrbo-br-wjy First Alternat e Health Care Agent Summary Purpose Family History No Family History Records FoundNo Family History Records FoundNo Family History Records FoundNo Family History Records FoundNo Family History Records FoundNo Family History Records FoundNo Family History Records Found Reason for Referral Specialty Diagnoses / Procedures Referred By Elvin t Referred To Contact Ent - Otolaryngology Diagnoses Salivary gland swelling Procedures CONSULT TO ENT OFFICE/OUTPATIENT [facility] 60-74 MINUTES Jared Velazquez PA-C [address] [place] [address] Referral ID Status Reason Start Date Expiration Date Visits Requested Visits Authorized [id number] Authorized PCP Requested Referral 2 05/14/2023 1 1 Specialty Diagnoses / Procedures Referred By Contac t Referred To Contact Radiology Diagnoses Localized swelling, mass and lump, neck Procedures CT soft tissue neck w IV contrast Jared Evans MD [address] [place] [phone] Referral ID Status Reason Start Date Expiration Date Visits Re quested Visits Authorized [id number] Closed 03/08/2023 04/07/2023 1 1 Specialty Diagnoses / Procedures Referred By Elvin t Referred To Contact Cardiology Diagnoses Other specified soft tissue disorders Procedures Vascular US lower extremity venous duplex left Jared Evans MD [address] [place] [phone] Referral ID Status Reason Start Date Expiration Date V isits Requested Visits Authorized [id number] Pending Review 05/24/2023 05/23/2024 1 1 Specialty Diagnoses / Procedures Referred By Elvin leyva Referred To Contact Radiology Diagnoses Abnormal findings on diagnostic imaging of other specified body structures Pain in left leg Procedures MR tibia fibula left w and wo IV contrast Jared Evans MD [address] [place] [address] Referral ID Status Reason Start Date Expiration Date Visits Re quested Visits Authorized [id number] Closed 06/01/2023 05/31/2024 1 1 Health Concerns [...] AND TREAT OT H[id number] [id number] Referral ID Status Reason Start Date Expiration Date Visits Re quested Visits Authorized [id number] 1 1 Reason Comments Hemorrhagic choroidal detachment [...] Referred By Elvin t Referred To Contact Ent - Otolaryngology Diagnoses Salivary gland swelling Procedures CONSULT TO ENT OFFICE/OUTPATIENT [facility] 60-74 MINUTES Jared Velazquez PA-C [address] [place] [address] Referral ID Status Reason Start Date Expiration Date V isits Requested Visits Authorized [id number] Closed PCP Requested Referral 05/14/2022 05/14/2023 1 1 Reason Comments Follow Up Gyant interaction - F/U - attempt made. No answer. Reason Comments Follow Up Phone Call All Clear Specialty Diagnoses / Procedures Referred By Elvin leyva Referred To Contact Radiology Diagnoses Localized swelling, mass and lump, neck Procedures CT soft tissue neck w IV contrast Jared Evans MD [address] [place] [phone] Referral ID Status Reason Start Date Expiration Date Visits Re quested Visits Authorized [id number] Closed 03/08/2023 04/07/2023 1 1 Specialty Diagnoses / Procedures Referred By Elvin leyva Referred To Contact Cardiology Diagnoses Other specified soft tissue disorders Procedures Vascular US lower extremity venous duplex left Jared Evans MD [address] [place] [phone] Referral ID Status Reason Start Date Expiration Date V isits Requested Visits Authorized [id number] Pending Review 05/24/2023 05/23/2024 1 1 Specialty Diagnoses / Procedures Referred By Elvin leyva Referred To Contact Radiology Diagnoses Abnormal findings on diagnostic imaging of other specified body structures Pain in left leg Procedures MR tibia fibula left w and wo IV contrast Jared Evans MD [address] [place] [phone] Referral ID Status Reason Start Date Expiration Date Visits Re quested Visits Authorized [id number] Closed 06/01/2023 05/31/2024 1 1 Reason Comments New Patient Mass left LE Specialty Diagnoses / Procedures Referred By Contac t Referred To Contact Sports Medicine Diagnoses Pain in leg, unspecified Jared Evans MD [address] [place] [phone] [place] [address] Referral ID Status Reason Start Date Expiration Date Visits Re quested Visits Authorized [id number] Closed 07/06/2023 07/05/2024 1 1 Reason Comments Numbness Leg Swelling Specialty Diagnoses / Procedures Referred By Contac t Referred To Contact Diagnoses Right leg pain Peripheral arterial disease (HCC) Right leg weakness Atrial fibrillation, unspecified type (HCC) Procedures . Pratibha Avelar, [address] [place] [address] [phone] Referral ID Status Reason Start Date Expiration Date Visits Re quested Visits Authorized [id number] 1 1 Reason Comments Follow-up 1st follow up RLE me chanical thrombectomy 04/06/24 (Krzysztof) Reason Onset Date Comments Med Refill 04/27/2024 Specialty Diagnoses / Procedures Referred By Contac t Referred To Contact Diagnoses [I63.9] - Cerebral infarction [facility] Taylor Patiño [address] [place] [address] Referral ID Status Reason Start Date Expiration Date V isits Requested Visits Authorized [id number] New Request 06/20/2024 08/19/2024 Reason Comments Eye Problem Pt reports blurred v ision, dizziness, and headache. LNW 07/04/24 @ 2130. Hx of strokes x 2, HTN, Afib, and right eye retinal detachment. Specialty Diagnoses / Procedures Referred By Contac t Referred To Contact Diagnoses Retinal detachment, right Vision loss of right eye Procedures . Sivlio Peres MD [address] [place] [address] Phone: tel: fax: [facility] [address] [place] [address] Phone: tel: Referral ID Status Reason Start Date Expiration Date Visits Re quested Visits Authorized [id number] 1 1 Reason Comments Eye Pain Right [...] OF VITREOUS, CHOROIDAL FLUID, PARS PLANA APPROACH [facility] [address] [address] Referral ID Status Reason Start Date Expiration Date Visits Re quested Visits Authorized [id number] 1 1 Reason Comments 1 week post [...] pneumonitis (CMS/HCC) (HCC) LORENZA (acute kidney injury) ([facility]) Vomiting and diarrhea Procedures . Abbi Long DO [address] [place] [address] Phone: tel: fax: [facility] [address] [place] [phone] Phone: tel: Referral ID Status Reason Start Date Expiration Date Visits Re quested Visits Authorized [id number] 1 1 Reason Comments Follow-up 3 month follow up, P AD check ([facility] [place]) Reason Comments Post-op (Ophthalmology) Right Eye 1 marisela h Reason Comments Post op OD Reason Comments Follow-up R leg pain with grea t toe wound-PVR and CTA w runoff 03/2024 Reason Comments Follow-up 1st follow up RLE an juliana, possible SFA/pop/tib angioplasty/stenting 11/22/24 Reason Comments 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; 2nd follow up RLE angio, SFA/pop/tib angioplasty/stenting 11/22/24 ([place] [facility] [phone]) Reason Comments Post-op (Ophthalmology) Right Eye Retinal Detachment OD Eye Crusting OD In the mornings Reason Comments Follow-up INFORMATION SOURCE (unrecogn ized section and content) DATE CREATED AUTHOR 03/13/2020 [facility] DATE CREATED AUTHOR AUTHOR'S ORGANIZ ATION 06/30/2022 [facility] DATE CREATED AUTHOR AUTHOR'S ORGANIZ ATION 07/10/2024 [facility] DATE CREATED AUTHOR AUTHOR'S ORGANIZ ATION 12/14/2024 [facility] DATE CREATED AUTHOR AUTHOR'S ORGANIZ ATION 01/05/2025 [facility] DATE CREATED AUTHOR AUTHOR'S ORGANIZ ATION 03/17/2025 [facility] DATE CREATED AUTHOR AUTHOR'S ORGANIZ ATION 04/29/2025 [facility] [facility] Source Comments (unrecognize d section and content) In the event this informatio n is protected by the Federal Confidentiality of Alcohol and Drug Abuse Patient Records regulations: The Federal rules restrict any use of the information to criminally investigate or prosecute any alcohol or drug abuse patient.[facility]igh[facility] the event this information is protected by the Federal Confidentiality of Alcohol and Drug Abuse Patient Records regulations: The Federal rules restrict any use of the information to criminally investigate or prosecute any alcohol or drug abuse patient.[facility]ighIn the event this information is protected by the Federal Confidentiality of Alcohol and Drug Abuse Patient Records regulations: The Federal rules restrict any use of the information to criminally investigate or prosecute any alcohol or drug abuse patient.[facility]ighIn the event this information is protected by the Federal Confidentiality of Alcohol and Drug Abuse Patient Records regulations: The Federal rules restrict any use of the information to criminally investigate or prosecute any alcohol or drug abuse patient.[facility]ighIn the event this information is protected by the Federal Confidentiality of Alcohol and Drug Abuse Patient Records regulations: The Federal rules restrict any use of the information to criminally investigate or prosecute any alcohol or drug abuse patient.[facility]ighIn the event this information is protected by the Federal Confidentiality of Alcohol and Drug Abuse Patient Records regulations: The Federal rules restrict any use of the information to criminally investigate or prosecute any alcohol or drug abuse patient.[facility]ighIn the event this information is protected by the Federal Confidentiality of Alcohol and Drug Abuse Patient Records regulations: The Federal rules restrict any use of the information to criminally investigate or prosecute any alcohol or drug abuse patient.[facility]ighIn the event this information is protected by the Federal Confidentiality of Alcohol and Drug Abuse Patient Records regulations: The Federal rules restrict any use of the information to criminally investigate or prosecute any alcohol or drug abuse patient.[facility]ighIn the event this information is protected by the Federal Confidentiality of Alcohol and Drug Abuse Patient Records regulations: The Federal rules restrict any use of the information to criminally investigate or prosecute any alcohol or drug abuse patient.[facility]ighIn the event this information is protected by the Federal Confidentiality of Alcohol and Drug Abuse Patient Records regulations: The Federal rules restrict any use of the information to criminally investigate or prosecute any alcohol or drug abuse patient.[facility]ighIn the event this information is protected by the Federal Confidentiality of Alcohol and Drug Abuse Patient Records regulations: The Federal rules restrict any use of the information to criminally investigate or prosecute any alcohol or drug abuse patient.[facility]ighIn the event this information is protected by the Federal Confidentiality of Alcohol and Drug Abuse Patient Records regulations: The Federal rules restrict any use of the information to criminally investigate or prosecute any alcohol or drug abuse patient.[facility]ighIn the event this information is protected by the Federal Confidentiality of Alcohol and Drug Abuse Patient Records regulations: The Federal rules restrict any use of the information to criminally investigate or prosecute any alcohol or drug abuse patient.[facility]ighIn the event this information is protected by the Federal Confidentiality of Alcohol and Drug Abuse Patient Records regulations: The Federal rules restrict any use of the information to criminally investigate or prosecute any alcohol or drug abuse patient.[facility]ighIn the event this information is protected by the Federal Confidentiality of Alcohol and Drug Abuse Patient Records regulations: The Federal rules restrict any use of the information to criminally investigate or prosecute any alcohol or drug abuse patient.[facility]ighIn the event this information is protected by the Federal Confidentiality of Alcohol and Drug Abuse Patient Records regulations: The Federal rules restrict any use of the information to criminally investigate or prosecute any alcohol or drug abuse patient.[facility]ighIn the event this information is protected by the Federal Confidentiality of Alcohol and Drug Abuse Patient Records regulations: The Federal rules restrict any use of the information to criminally investigate or prosecute any alcohol or drug abuse patient.[facility]ighIn the event this information is protected by the Federal Confidentiality of Alcohol and Drug Abuse Patient Records regulations: The Federal rules restrict any use of the information to criminally investigate or prosecute any alcohol or drug abuse patient.[facility]ighIn the event this information is protected by the Federal Confidentiality of Alcohol and Drug Abuse Patient Records regulations: The Federal rules restrict any use of the information to criminally investigate or prosecute any alcohol or drug abuse patient.[facility] Care Teams (unrecognized sec tion and content) Multicultural Manager Relationship Specialty Start Date End Date Pcp, No PCP - General 01/30/22 08/17/22 Multicultural Manager Relationship Specialty Start Date End Date Pcp, No PCP - General 01/30/22 08/17/22 Multicultural Manager Relationship Specialty Start Date End Date Jared Evans MD [address] [place] [address] PCP - General Family Medicine 05/18/22 Multicultural Manager Relationship Specialty Start Date End Date Jared Evans MD [address] [place] [address] PCP - General Family Medicine 05/18/22 Multicultural Manager Relationship Specialty Start Date End Date Jared Evans MD [address] [place] [address] PCP - General Family Medicine 05/18/22 Multicultural Manager Relationship Specialty Start Date End Date Jared Evans MD [address] [place] [address] PCP - General 03/06/20 Multicultural Manager Relationship Specialty Start Date End Date Jared Evans MD [address] [place] [place] [address] PCP - General 03/06/20 Multicultural Manager Relationship Specialty Start Date End Date Jared Evans MD [address] [place] [address] PCP - General 03/06/20 Multicultural Manager Relationship Specialty Start Date End Date Jared Evans MD [address] [place] [address] PCP - General 03/06/20 Multicultural Manager Relationship Specialty Start Date End Date Jared Evans MD [address] [place] [address] PCP - General 03/06/20 Multicultural Manager Relationship Specialty Start Date End Date Jared Evans MD [address] [place] [address] PCP - General 03/06/20 Multicultural Manager Relationship Specialty Start Date End Date Jared Evans MD [address] [place] [address] PCP - General 03/06/20 Multicultural Manager Relationship Specialty Start Date End Date Jared Evans MD [address] [place] [address] PCP - General 03/06/20 Multicultural Manager Relationship Specialty Start Date End Date Jared Evans MD [address] [place] [address] PCP - General 03/06/20 Multicultural Manager Relationship Specialty Start Date End Date Jared Evans MD [address] [facility] [place] [address] PCP - General 03/06/20 Multicultural Manager Relationship Specialty Start Date End Date Jared Evans MD [address] [facility] [place] [address] PCP - General 03/06/20 Multicultural Manager Relationship Specialty Start Date End Date Jared Evans MD [address] [facility] [place] [address] PCP - General 03/06/20 Multicultural Manager Relationship Specialty Start Date End Date Jared Evans MD [address] [facility] [place] [address] PCP - General 03/06/20 Henok Hernandez PA-C [address] [place] [address] Physician National Expansion Recruiter Physician National Expansion Recruiter 04/19/24 Multicultural Manager Relationship Specialty Start Date End Date Jared Evans MD [address] [facility] [place] [address] PCP - General 03/06/20 Henok Hernandez PA-C [address] [place] [address] Physician National Expansion Recruiter Physician National Expansion Recruiter 04/19/24 Multicultural Manager Relationship Specialty Start Date End Date Jared Evans MD [address] [place] [address] PCP - General 03/06/20 Henok Hernandez PA-C [address] [place] [address] Physician National Expansion Recruiter Physician National Expansion Recruiter 04/19/24 Multicultural Manager Relationship Specialty Start Date End Date Jared Evans MD [address] [place] [address] PCP - General 03/06/20 Henok Hernandez PA-C [address] [place] [address] Physician National Expansion Recruiter Physician National Expansion Recruiter 04/19/24 Multicultural Manager Relationship Specialty Start Date End Date Jared Evans MD [address] [place] [address] PCP - General 03/06/20 Henok Hernandez PA-C [address] [place] [address] Physician National Expansion Recruiter Physician National Expansion Recruiter 04/19/24 Multicultural Manager Relationship Specialty Start Date End Date Jared Evans MD [address] [place] [address] PCP - General 03/06/20 Henok Lantigua PA-C [address] [place] [address] Physician National Expansion Recruiter Physician National Expansion Recruiter 04/19/24 Multicultural Manager Relationship Specialty Start Date End Date [facility] [place] [address] PCP - General 03/06/20 Henok Lantigua PA-C [address] [address] Physician National Expansion Recruiter Physician National Expansion Recruiter 04/19/24 Multicultural Manager Relationship Specialty Start Date End Date Jared Evans MD [address] [place] [address] PCP - General Family Medicine 05/18/22 Multicultural Manager Relationship Specialty Start Date End Date Jared Evans MD [address] [place] [address] PCP - General Family Medicine 05/18/22 Multicultural Manager Relationship Specialty Start Date End Date Jaerd Evans MD [place] [address] PCP - General 03/06/20 Henok Lantigua PA-C [address] [address] Physician National Expansion Recruiter Physician National Expansion Recruiter 04/19/24 Multicultural Manager Relationship Specialty Start Date End Date Jared Evans MD [address] [place] [address] PCP - General Family Medicine 05/18/22 Multicultural Manager Relationship Specialty Start Date End Date Jared Evans MD [address] [place] [address] PCP - General Family Medicine 05/18/22 Multicultural Manager Relationship Specialty Start Date End Date Jared Evans MD [address] [place] [address] PCP - General Family Medicine 05/18/22 Multicultural Manager Relationship Specialty Start Date End Date Jared Evans MD [address] [place] [address] PCP - General Family Medicine 05/18/22 Multicultural Manager Relationship Specialty Start Date End Date Jared Evans MD [address] [place] [address] PCP - General Family Medicine 05/18/22 Multicultural Manager Relationship Specialty Start Date End Date Jared Evans MD [address] [place] [address] PCP - General 03/06/20 Henok Lantigua PA-C [address] [place] [address] Physician National Expansion Recruiter Physician National Expansion Recruiter 04/19/24 Multicultural Manager Relationship Specialty Start Date End Date Jared Evans MD [address] [place] [address] PCP - General Family Medicine 05/18/22 Multicultural Manager Relationship Specialty Start Date End Date Jared Evans MD [address] [place] [address] PCP - General Family Medicine 05/18/22 Multicultural Manager Relationship Specialty Start Date End Date Jared Evans MD [address] [place] [address] PCP - General Family Medicine 05/18/22 Multicultural Manager Relationship Specialty Start Date End Date Jared Evans MD [address] [place] [address] PCP - General 03/06/20 Henok Lantigua PA-C [address] [place] [address] Physician National Expansion Recruiter Physician National Expansion Recruiter 04/19/24 Multicultural Manager Relationship Specialty Start Date End Date Jared Evans MD [address] [place] [address] PCP - General 03/06/20 Henok Lantigua PA-C [address] [address] Physician National Expansion Recruiter Physician National Expansion Recruiter 04/19/24 Multicultural Manager Relationship Specialty Start Date End Date Jared Evans MD [facility] [place] [address] PCP - General 03/06/20 Henok Lantigua PA-C [address] [address] Physician National Expansion Recruiter Physician National Expansion Recruiter 04/19/[address] [address] Intermediate Facility 08/22/24 Multicultural Manager Relationship Specialty Start Date End Date Jared Evans MD [address] [place] [address] PCP - General Family Medicine 05/18/22 Multicultural Manager Relationship Specialty Start Date End Date Jared Evans MD [address] [place] [address] PCP - General Family Medicine 05/18/22 Team [...] October 08, 2024 End: October 08, 2024 Multicultural Manager Relationship Specialty Start Date End Date Jared Evans MD [address] [place] [address] PCP - General 03/06/20 Henok Lantigua PA-C [address] [place] [address] Physician National Expansion Recruiter Physician National Expansion Recruiter 04/19/24 [facility] [address] [place] [address] Intermediate Facility 08/22/24 Multicultural Manager Relationship Specialty Start Date End Date Jared Evans MD [address] [place] [address] PCP - General 03/06/20 Henok Lantigua PA-C [address] [address] Physician National Expansion Recruiter Physician National Expansion Recruiter 04/19/24 [facility] [address] [place] [address] Intermediate Facility 08/22/24 Multicultural Manager Relationship Specialty Start Date End Date Jared Evans MD [address] [place] [place] [address] PCP - General 03/06/20 Henok Lantigua PA-C [address] [address] Physician National Expansion Recruiter Physician National Expansion Recruiter 04/19/24 [facility] [address] [place] [address] Intermediate Facility 08/22/24 Multicultural Manager Relationship Specialty Start Date End Date Jared Evans MD [address] [place] [address] PCP - General 03/06/20 Henok Lantigua PA-C [address] [address] Physician National Expansion Recruiter Physician National Expansion Recruiter 04/19/24 [facility] [address] [place] [address] Intermediate Facility 08/22/24 Multicultural Manager Relationship Specialty Start Date End Date Jared Evans MD [address] [place] [address] PCP - General 03/06/20 Henok Lantigua PA-C [address] [address] Physician National Expansion Recruiter Physician National Expansion Recruiter 04/19/24 [facility] [address] [place] [address] Intermediate Facility 08/22/24 Multicultural Manager Relationship Specialty Start Date End Date Megan Montoya [address] [place] [phone] PCP - General Internal Medicine 12/13/24 Henok Lantigua PA-C [address] [address] Physician National Expansion Recruiter Physician National Expansion Recruiter 04/19/24 [facility] [address] [place] [address] Intermediate Facility 08/22/24 Multicultural Manager Relationship Specialty Start Date End Date Megan Montoya [address] [place] [phone] PCP - General Internal Medicine 12/13/24 Henok Lantigua PA-C [address] [place] [address] Physician National Expansion Recruiter Physician National Expansion Recruiter 04/19/24 Kristyn Blankenship MD [address] [place] [address] Consulting Physician Vascular Surgery 12/24/24 [facility] [address] [place] [address] Intermediate Facility 08/22/24 Multicultural Manager Relationship Specialty Start Date End Date Jared Evans MD [address] [place] [address] PCP - General Family Medicine 05/18/22 Multicultural Manager Relationship Specialty Start Date End Date Jared Evans MD [address] [place] [address] PCP - General Family Medicine 05/18/22 Multicultural Manager Relationship Specialty Start Date End Date Megan Montoya [address] [place] [address] [address] [place] [address] PCP - General Internal Medicine 12/13/24 Henok Lantigua PA-C [facility] [address] [place] [address] Physician National Expansion Recruiter Physician National Expansion Recruiter 04/19/24 Kristyn Blankenship MD [address] [place] [address] Consulting Physician Vascular Surgery 12/24/24 [facility] [address] [place] [address] Intermediate Facility 08/22/24 Multicultural Manager Relationship Specialty Start Date End Date Megan Montoya [address] [place] [phone] PCP - General Internal Medicine 12/13/24 Henok Lantigua PA-C [address] [place] [address] Physician National Expansion Recruiter Physician National Expansion Recruiter 04/19/24 Kristyn Blankenship MD [address] [place] [address] Consulting Physician Vascular Surgery 12/24/24 Andre Patel MD [address] [place] [address] Consulting Physician Hematology and Oncology 03/15/[address] [place] [address] [address] Intermediate Facility 08/22/24 Scheduled Active and Recently Administ [...] home med 0628 (Given - Provider: Norma Davis, RADHA) 0501 (Given - Provider: Norma Davis, RADHA) 0600 (Given - Provider: Norma Davis, RADHA) [...] Davis RN) 0559 (Given - Provider: Norma Davis, RADHA) warfarin (Coumadin) tablet 5 mg (COMPLETED) 5 [...] Norma Davis RN)0625 (Rate/Dose Verify - Provider: Noram Davis RN)0700 (Handoff - Provider: Norma Davis [...] Alin Wallis, RN)1100 (Stopped - Provider: Alin Wallis, RN) PRN Medication Order 04/11/2024 04/12/2024 04/13/2024 [...] sedation for opioid reversal - MUST notify patient registration supervisor provider immediately after first dose, may give [...] RN) 09 (Given - Provider: Cecilia Lopes RN)1444 (Given - Provider: Cecilia Lopes RN)2105 (Given [...] Cecilia Lopes RN)2106 (Given - Provider: Luis Murry, RADHA) 0936 (Given - Provider: La Avila, RADHA) enoxaparin (Lovenox) syringe 70 mg 70 mg, SubCUTAneous, Every 12 hours, First dose on Maida 07/05/24 at 1500 1738 (Given - Provider: Cecilia Lopes RN) 0406 (Given - Provider: Luis Murry, RADHA)1443 (Given - Provider: Cecilia Lopes RN) 0349 (Given - Provider: Luis Murry, RADHA) [...] Cecilia Lopes, RADHA)2029 (Given - Provider: Luis Murry RN) 0000 (Given - Provider: Luis Murry RN)0406 (Given - Provider: Luis Murry RN)0908 (Given - Provider: Cecilia Lopes, RADHA)1303 (Given - Provider: Cecilia Lopes, RADHA)1627 (Given - Provider: Cecilia Lopes, RADHA)2106 (Given - Provider: Luis Murry RN) 0000 (Given - Provider: Luis Murry RN)0349 (Given - Provider: Lusi Murry RN)0936 (Given - Provider: La Avila [...] Perez RN) 1024 (Given - Provider: Cici ePrez RN) PRN Medication Order 08/14/2024 08/15/2024 08/16/2024 [...] BE BASED ON THE PRIMARY CLINICAL RECORDS. [facility] [employer] [facility]. provides no warranty or guarantee of the accuracy or completeness of information in this document.
[2025-05-06 07:36] LABS: INR Fingerstick 5.5
[2025-05-06 08:21] LABS: Prothrombin Time (Protime)PT. 46.2 SECONDS (11.7-14.9)
== END ==
LOC: OLS.SANC 05:00
PROVIDERS: Visit Provider Internal Medicine
DX: Z79.01 Long term (current) use of anticoagulants (principal)
CPT/HCPCS: 36415; 36416; 85610

== ENCOUNTER → 2025-05-09 | Outpatient (REF) | payer MEDICARE, SELFPAY ==
--- OUTSIDE RECORDS SUMMARY | 2025-05-09 04:28 | XMS RPT_ITS | CCD ---
Author Organization [facility] Care Team Providers Care Rate Reviewer Name Role Phone Maryuri King Primary Care Provider [phone] Jared Evans Primary Care Provider [phone] Pcp, No Primary Care Provider UnavailJared Mckinnon MD Primary Care Provider BERNIE BIRD Admitting Unavailable IWONA CHU Attending Unavailable MING OLSON Consulting Unavailable SIM ELIZABETH Attending Unavailable PRIMO DODD Referring Unavailable Jared Evans MD Primary Care Provider [phone] Jared Evans MD Primary Care Provider [phone] Henok Hernandez PA-C Unavailable Henok Lantigua PA-C Unavailable Jared Evans MD Primary Care Provider SYSTEM, PROVIDER NOT IN Referring Unavaila Megan Rice Attending Provider Unavailab Megan Porras Referring Provider Unavailab Megan Porras Attending Provider Unavailab Megan Porras Referring Provider Unavailab TORSTEN Hernandez Consulting Unavailable JARED EVANS Primary Care Unavailable FELICIA COREAS Admitting Unavailable DON EDWARDS Attending Unavailable Megan Beebe Primary Care Provider [phone] Krzysztof BROWNE, Kristyn Unavailable RED HENDERSON Referring [...] EVANS, JARED N Primary Care Unavailable MAMMO, SAVAAN A Attending Unavailable EVANS, JARED N Primary Care Unavailable MAMMO, SAVANA A Referring Unavailable EVANS, JARED N Primary Care Unavailable MADHU, DEVIKA A Admitting Unavailable MADHU, DEVIKA A Attending Unavailable EVANS, JARED N Primary Care Unavailable AZAR ACUÑA Consulting Unavailable MAMMO, SAVANA A Admitting Unavailable MAMMO, SAVANA A Attending Unavailable EVANS, JARED N Primary Care Unavailable MAMMO, SAVANA A Attending Unavailable SELF Referring Unavailable EVANS, JARED N Primary Care Unavailable EVANS, JARED N Primary Care Unavailable SELF Referring Unavailable EVANS, JARED N Primary Care Unavailable SELF Referring Unavailable EVANS, [place] N Primary Care Unavailable SELF Referring Unavailable EVANS, [place] N Primary Care Unavailable MAMMO, SAVANA A Attending Unavailable MAMMO, SAVANA A Referring Unavailable EVANS, JARED N Primary Care Unavailable SELF Referring Unavailable EVANS, JARED N Primary Care Unavailable Darlyn FELIZ, Henok Unavailable [phone] Amanda Berry MD, Greg Unavailable BEATRIZ, RED Admitting Unavailable BEATRIZ, RED Attending Unavailable EVANS, JARED Primary Care [...] Unavailable EVANS, JARED Primary Care Unavailable EVANS, JARDE Primary Care Unavailable EVANS, JARED Primary Care [...] Katsaros OLS, Peter Attending Unavailable Katsaros, Peter Referring Unavailable Katsaros, Peter Attending Unavailable Katsaros OLS, Peter Attending [...] Facility (20 sources) Amoxicillin Drug Allergy 0 [place], [place] (20 sources) fluticasone / salmeterol Drug Allergy 0 Intolerance [place], [place] (20 sources) Acetaminophen / oxyCODONE; Translations: [OXYCODONE-ACETAM INOPHEN] Drug Allergy 2 Itching [facility] Other [place] [facility] (9 sources) Ampicillin; Translations: [AMPICILLIN] Drug Allergy 4 Unknown [facility] (13 sources) Amoxicillin-Pot Clavulanate Drug Allergy 5 [facility] (1 source) FLUTICASONE PROPION-SALMETERO L; Translations: [FLUTICASONE PROPION-SALMETERO L] Propensity to adverse reactions to drug (disorder) 0 [facility] Repository Medications Current Medications Medication Drug [...] for pain for up to 3 days. [id number] 200 actuat albuterol 0.09 mg/actuat metered dose [...] Comment on above: Take 1 tablet by [facility] three times daily. atorvastatin 80 mg oral [...] for constipation. Active take 1 tablet by [facility] every twenty-four hours as needed for constipation [...] on above: Take 2 tablets by mo [facility] every 12 hours for 3 days, [...] Comment on above: Take 1 tablet by [facility] every 12 hours for 7 days. 0.5 [...] for dry skin. Active lactobacillus rhamnosus gg [id number] unt oral capsule (2 sources) Start: 06-29-20 End: 07-29-19 23 take 1 capsule by mouth once daily lactobacillus rhamnosus (CULTURELLE) 10 billion cell capsule Take 1 capsule by mouth once daily. 30 capsule 0 06/29/2022 07/29/2022 Active Comment on above: Take 1 capsule by [facility] once daily. lidocaine 0.04 mg/mg medicated [...] Drop ( AK-DILATE, KEL-SYNEPHRINE) polyethylene glycol 3350 28945 mg powder for oral solution (11 sources) [...] lower extremity (HCC) Take as directed by [facility] Antico[facility] Clinic (90 tablets = [...] lower extremity (HCC) Take as directed by [facility] Anticoagulation Clinic (45 tablets= 30 day supply) 45 tablet 1 04/27/2024 Active Start: 04-09-2024 7.5 mg, Oral, Once Warfarin, On Maida 04/12/24 at 1700, For 1 dose Start: 04-07-2024 warfarin (Coum jay jay) 5 MG tablet Take 1 tablet (5mg) on 04/13 in the evening Take 1.5 tablets (7.5mg) on 04/14 Take 1 tablet (5mg) on 04/15 Follow up with [facility] pharmacy for further dosing 30 [...] twenty-four hours 1,000 mg, Oral, Once, On Maiad 11/22/24 at 0830, For 1 dose, Preprocedure, [...] sodium chloride 0.9 % 100 mL IVPB ([facility]) (2 sources) Start: End: take 3000 mg intravenously every six hours 3,000 mg, IntraVENous, at 200 mL/hr, Administer over 30 Minutes, Every 6 hours, First dose on Tue08/03/24 at 1200, For 18 doses, [facility] bag, Suspected Indication (Select all that apply): [...] Anesthetic Start: 03-07-2020 End: 03-07-2020 lidocaine-EPINEPHrine 1 percent-1:[id number] injection 8 mL ergocalciferol 1.25 mg oral capsule (3 sources) Provitamin D2 Compound End: 07-05-2024 take 1 capsule by mouth every week ergocalciferol (Vitamin D2) 1.25 MG (21797 UT) capsule Take 1.25 mg by mouth [...] Initial one time bolus Start: 04-03-2024 End: 09-27-2024 5-30 Units/kg/hr 72.3 kg (3. 615-21.69 mL/hr, [...] Comment on above: Take 1 tablet by [facility] twice daily before meals (0600/1600). prochlorperazine 5 [...] on Tue04/03/24 at 1820 sodium zirconium cyclosilicate 56794 mg powder for oral suspension (2 sources) [...] Eye, 2 times daily, First dose on Tue07/05/24 at 1355 10 actuat tiotropium 0.0025 mg/actuat inhalation spray (6 sources) Anticholinergic Start: 08-03-2024 End: 08-16-2024 take 2 puff(s) by inhalation once daily 2 puff, Inhalation, Daily, First dose on Tue08/03/24 at 1030 Start: 07-05-2024 End: 07-07-2024 take 2 puff(s) by inhalation once daily 2 puff, Inhalation, Daily, First dose on Tue07/05/24 at 1615 Start: 04-04-2024 End: 04-10-2024 take [...] system] 12-05-2024 Episodic Other aftercare (4 sources) 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; Translations: [senior care (current) use of anticoagulants] Onset: 2 Episodic [...] sources) Long-term current use of anticoagulant; Translations: [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] Onset: 0 03-07-2020 Episodic Other aftercare (2 sources) Encounter for surgical aftercare following surgery on the circulatory system; Translations: [Encounter for surgical aftercare following surgery on the circulatory system] Onset: 5 Episodic Other aftercare (1 source) 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; Translations: [Other longterm (current) drug therapy] Onset: 5 Episodic Other [...] limited to breakdown of skin ([facility]) 12-05-2024 Unclassified (4 sources) PAD (peripheral artery disease) ([facility]) 12-05-2024 Viral infection (20 sources) Disease caused by 2019-nCoV; Translations: [COVID-19] Onset: 2 06-16-2022 Episodic Results Test Name Value Interpretation Reference Range Facility Prothrombin Time w/INRon INR Coag (PPP) [Relative time] 4.8 {INR} Invalid Interpretation Code [facility] Comment on above: Order Comment: - Performed By: #### L 300.3900 #### [facility] [address] [place], [address] PT Coag (PPP) [Time] 46.2 s High 11.7-14.9 [facility] Comment on above: Order Comment: - Performed By: #### L 300.3900 #### [facility] [address] [place], [address] Protime w/INR Fingerstickon 05-06-2025 INR Coag (PPP) [Relative time] 5.5 {INR} Invalid Interpretation Code [facility] Comment on above: Result Comment: Crit ical Value > 4.0 Performed By: #### L 300.3900 #### [facility] [address] [place], [address] Protime [place] 53.4 SEC High 11.7-14.9 [facility] Comment on above: Performed By: #### L 300.3900 #### [facility] [address] [place], [address] Prothrombin Time w/INRon INR Coag (PPP) [Relative time] 3.9 {INR} Normal [facility] Comment on above: Order Comment: 104-1 Performed By: #### L 300.3900 #### [facility] [address] [place], [address] PT Coag (PPP) [Time] 39.5 s High 11.7-14.9 [facility] Comment on above: Order Comment: 104-1 Performed By: #### L 300.3900 #### [facility] [address] [place], [address] Protime w/INR Fingerstickon 04-29-2025 INR Coag (PPP) [Relative time] 4.1 {INR} Invalid Interpretation Code [facility] Comment on above: Result Comment: Crit ical Value > 4.0 Performed By: #### L 9200.0000 #### [facility] [address] [place], [address] Protime [place] 41.7 SEC High 11.7-14.9 [facility] Comment on above: Performed By: #### L 9200.0000 #### [facility] [address] [place], [address] Basic Metabolic Profile (BMP )on 04-04-2025 BUN/CRE 19.9 RATIO Normal 10-20 [facility] Comment on above: Order Comment: 104-1 Performed By: #### L 300.3900 #### [facility] [address] [place], [address] Calcium [Mass/Vol] 8.9 mg/dL Normal 7.6-11.0 [facility] Comment on above: Order Comment: 104-1 Performed By: #### L 300.3900 #### [facility] [address] [place], [address] Chloride [Moles/Vol] 109 mmol/L High 98-108 [facility] Comment on above: Order Comment: 104-1 Performed By: #### L 300.3900 #### [facility] [address] [place], [address] CO2 [Moles/Vol] 20.4 mmol/L Low 21.0-32.0 [facility] Comment on above: Order Comment: 104-1 Performed By: #### L 300.3900 #### [facility] [address] [place], [address] Creatinine [Mass/Vol] 0.98 mg/dL Normal 0.70-1.20 [facility] Comment on above: Order Comment: 104-1 Performed By: #### L 300.3900 #### [facility] [address] [place], [address] GAP 10 Normal 5-15 [facility] Comment on above: Order Comment: 104-1 Performed By: #### L 300.3900 #### [facility] [address] [place], [address] GFR/1.73 sq M.predicted among non-blacks MDRD (S/P/Bld) [Vol rate/Area] 56 mL/min/{1.73_m2} Low >60 [facility] Comment on above: Order Comment: 104-1 Result Comment: mL/m in/1.73m2 CKD-EPI Creatinine Equation (2020) Performed By: #### L 300.3900 #### [facility] [address] [place], [address] Glucose [Mass/Vol] 87 mg/dL Normal 70-99 [facility] Comment on above: Order Comment: 104-1 Performed By: #### L 300.3900 #### [facility] [address] [place], [address] Potassium [Moles/Vol] 5.0 mmol/L Normal 3.3-5.1 [facility] Comment on above: Order Comment: 104-1 Performed By: #### L 300.3900 #### [facility] [address] [place], [address] Sodium [Moles/Vol] 139 mmol/L Normal 133-145 [facility] Comment on above: Order Comment: 104-1 Performed By: #### L 300.3900 #### [facility] [address] [place], [address] Urea nitrogen [Mass/Vol] 20 mg/dL High 4-19 [facility] Comment on above: Order Comment: 104-1 Performed By: #### L 300.3900 #### [facility] [address] [place], [address] CBC-Complete Blood Cnt No Di ffon 04-04-2025 Erythrocyte distribution width (RBC) [Ratio] 13.6 % Normal 11.6-14.6 [facility] Comment on above: Order Comment: 104-1 Performed By: #### L 300.3900 #### [facility] [address] [place], [address] Hematocrit (Bld) [Volume fraction] 32.6 % Low 37-47 [facility] Comment on above: Order Comment: 104-1 Performed By: #### L 300.3900 #### [facility] [address] [place], [address] Hemoglobin (Bld) [Mass/Vol] 10.7 g/dL Low 12.0-15.0 [facility] Comment on above: Order Comment: 104-1 Performed By: #### L 300.3900 #### [facility] [address] [place], [address] MCH (RBC) [Entitic mass] 30.0 pg Normal 27.0-32.0 [facility] Comment on above: Order Comment: 104-1 Performed By: #### L 300.3900 #### [facility] [address] [place], [address] MCHC (RBC) [Mass/Vol] 32.8 g/dL Normal 32-36 [facility] Comment on above: Order Comment: 104-1 Performed By: #### L 300.3900 #### [facility] [address] [place], [address] MCV (RBC) [Entitic vol] 91.3 fL Normal 81-99 [facility] Comment on above: Order Comment: 104-1 Performed By: #### L 300.3900 #### [facility] [address] [place], [address] Platelet mean volume (Bld) [Entitic vol] 9.8 fL Normal 6.2-12.0 [facility] Comment on above: Order Comment: 104-1 Performed By: #### L 300.3900 #### [facility] [address] [place], [address] Platelets (Bld) [#/Vol] 259 10*3/uL Normal 150-450 [facility] Comment on above: Order Comment: 104-1 Performed By: #### L 300.3900 #### [facility] [address] [place], [address] RBC (Bld) [#/Vol] 3.57 10*6/uL Low 4.2-5.4 [facility] Comment on above: Order Comment: 104-1 Performed By: #### L 300.3900 #### [facility] [address] [place], [address] RDW SD 46.1 fl High 35.1-43.9 [facility] Comment on above: Order Comment: 104-1 Performed By: #### L 300.3900 #### [facility] [address] [place], [address] WBC (Bld) [#/Vol] 4.2 10*3/uL Low 4.4-11.0 [facility] Comment on above: Order Comment: 104-1 Performed By: #### L 300.3900 #### [facility] [address] [place], [address] Potassiumon 04-02-2025 Potassium [Moles/Vol] 5.3 mmol/L High 3.3-5.1 [facility] Comment on above: Order Comment: 104-1 Performed By: #### L 300.3900 #### [facility] [address] [place], [address] Basic Metabolic Profile (BMP )on 03-28-2025 BUN/CRE 17.4 RATIO Normal 10-20 [facility] Comment on above: Order Comment: 104-1 Performed By: #### L 300.3900 #### [facility] [address] [place], [address] Calcium [Mass/Vol] 9.0 mg/dL Normal 7.6-11.0 [facility] Comment on above: Order Comment: 104-1 Performed By: #### L 300.3900 #### [facility] [address] [place], [address] Chloride [Moles/Vol] 108 mmol/L Normal 98-108 [facility] Comment on above: Order Comment: 104-1 Performed By: #### L 300.3900 #### [facility] [address] [place], [address] CO2 [Moles/Vol] 21.1 mmol/L Normal 21.0-32.0 [facility] Comment on above: Order Comment: 104-1 Performed By: #### L 300.3900 #### [facility] [address] [place], [address] Creatinine [Mass/Vol] 0.99 mg/dL Normal 0.70-1.20 [facility] Comment on above: Order Comment: 104-1 Performed By: #### L 300.3900 #### [facility] [address] [place], [address] GAP 9 Normal 5-15 [facility] Comment on above: Order Comment: 104-1 Performed By: #### L 300.3900 #### [facility] [address] [place], [address] GFR/1.73 sq M.predicted among non-blacks MDRD (S/P/Bld) [Vol rate/Area] 56 mL/min/{1.73_m2} Low >60 [facility] Comment on above: Order Comment: 104-1 Result Comment: mL/m in/1.73m2 CKD-EPI Creatinine Equation (2020) Performed By: #### L 300.3900 #### [facility] [address] [place], [address] Glucose [Mass/Vol] 88 mg/dL Normal 70-99 [facility] Comment on above: Order Comment: 104-1 Performed By: #### L 300.3900 #### [facility] [address] [place], [address] Potassium [Moles/Vol] 5.2 mmol/L High 3.3-5.1 [facility] Comment on above: Order Comment: 104-1 Performed By: #### L 300.3900 #### [facility] [address] [place], [address] Sodium [Moles/Vol] 138 mmol/L Normal 133-145 [facility] Comment on above: Order Comment: 104-1 Performed By: #### L 300.3900 #### [facility] [address] [place], [address] Urea nitrogen [Mass/Vol] 17 mg/dL Normal 4-19 [facility] Comment on above: Order Comment: 104-1 Performed By: #### L 300.3900 #### [facility] [address] [place], [address] CBC-Complete Blood Cnt No Di ffon 03-28-2025 Erythrocyte distribution width (RBC) [Ratio] 13.7 % Normal 11.6-14.6 [facility] Comment on above: Order Comment: 104-1 Performed By: #### L 300.3900 #### [facility] [address] [place], [address] Hematocrit (Bld) [Volume fraction] 31.6 % Low 37-47 [facility] Comment on above: Order Comment: 104-1 Performed By: #### L 300.3900 #### [facility] [address] [place], [address] Hemoglobin (Bld) [Mass/Vol] 10.3 g/dL Low 12.0-15.0 [facility] Comment on above: Order Comment: 104-1 Performed By: #### L 300.3900 #### [facility] [address] [place], [address] MCH (RBC) [Entitic mass] 29.7 pg Normal 27.0-32.0 [facility] Comment on above: Order Comment: 104-1 Performed By: #### L 300.3900 #### [facility] [address] [place], [address] MCHC (RBC) [Mass/Vol] 32.6 g/dL Normal 32-36 [facility] Comment on above: Order Comment: 104-1 Performed By: #### L 300.3900 #### [facility] [address] [place], [address] MCV (RBC) [Entitic vol] 91.1 fL Normal 81-99 [facility] Comment on above: Order Comment: 104-1 Performed By: #### L 300.3900 #### [facility] [address] [place], [address] Platelet mean volume (Bld) [Entitic vol] 10.0 fL Normal 6.2-12.0 [facility] Comment on above: Order Comment: 104-1 Performed By: #### L 300.3900 #### [facility] [address] [place], [address] Platelets (Bld) [#/Vol] 265 10*3/uL Normal 150-450 [facility] Comment on above: Order Comment: 104-1 Performed By: #### L 300.3900 #### [facility] [address] [place], [address] RBC (Bld) [#/Vol] 3.47 10*6/uL Low 4.2-5.4 [facility] Comment on above: Order Comment: 104-1 Performed By: #### L 300.3900 #### [facility] [address] [place], [address] RDW SD 45.8 fl High 35.1-43.9 [facility] Comment on above: Order Comment: 104-1 Performed By: #### L 300.3900 #### [facility] [address] [place], [address] WBC (Bld) [#/Vol] 5.3 10*3/uL Normal 4.4-11.0 [facility] Comment on above: Order Comment: 104-1 Performed By: #### L 300.3900 #### [facility] [address] [place], [address] Prothrombin Time w/INRon INR Coag (PPP) [Relative time] 2.2 {INR} Normal [facility] Comment on above: Order Comment: 104-1 Performed By: #### L 300.3900 #### [facility] [address] [place], [address] PT Coag (PPP) [Time] 24.5 s High 11.7-14.9 [facility] Comment on above: Order Comment: 104- Performed By: #### L 300.3900 #### [facility] [address] [place], [address] Progress Noteon 03-15-2025 Progress Note Normal [facility] Protime w/INR Fingerstickon 03-04-2025 INR Coag (PPP) [Relative time] 2.3 {INR} Normal [facility] Comment on above: Result Comment: Crit ical Value > 4.0 Performed By: #### L 9200.0000 #### [facility] [address] [place], [address] Protime Coagsen 24.7 SEC High 11.7-14.9 [facility] Comment on above: Performed By: #### L 9200.0000 #### [facility] [address] [place], [address] 36on 02-27-2025 36 Letter mailed to patient [facility] 36on 02-26-2025 36 [facility] Protime w/INR Fingerstickon 02-25-2025 INR Coag (PPP) [Relative time] 2.1 {INR} Normal [facility] Comment on above: Result Comment: Crit ical Value > 4.0 Performed By: #### L 300.3900 #### [facility] [address] [place], [address] Protime [place]agsen 23.3 SEC High 11.7-14.9 [facility] Comment on above: Performed By: #### L 300.3900 #### [facility] [address] [place], [address] Basic Metabolic Profile (BMP )on 02-18-2025 BUN/CRE 22.7 RATIO High 10-20 [facility] Comment on above: Performed By: #### L 9200.0000 #### [facility] [address] [place], [address] Calcium [Mass/Vol] 9.2 mg/dL Normal 7.6-11.0 [facility] Comment on above: Performed By: #### L 9200.0000 #### [facility] [address] [place], [address] Chloride [Moles/Vol] 108 mmol/L Normal 98-108 [facility] Comment on above: Performed By: #### L 9200.0000 #### [facility] [address] [place], [address] CO2 [Moles/Vol] 21.6 mmol/L Normal 21.0-32.0 [facility] Comment on above: Performed By: #### L 9200.0000 #### [facility] [address] [place], [address] Creatinine [Mass/Vol] 1.03 mg/dL Normal 0.70-1.20 [facility] Comment on above: Performed By: #### L 9200.0000 #### [facility] [address] [place], [address] GAP 9 Normal 5-15 [facility] Comment on above: Performed By: #### L 9200.0000 #### [facility] [address] [place], [address] GFR/1.73 sq M.predicted among non-blacks MDRD (S/P/Bld) [Vol rate/Area] 53 mL/min/{1.73_m2} Low >60 [facility] Comment on above: Result Comment: mL/m in/1.73m2 CKD-EPI Creatinine Equation (2020) Performed By: #### L 9200.0000 #### [facility] [address] [place], [address] Glucose [Mass/Vol] 91 mg/dL Normal 70-99 [facility] Comment on above: Performed By: #### L 9200.0000 #### [facility] [address] [place], [address] Potassium [Moles/Vol] 5.2 mmol/L High 3.3-5.1 [facility] Comment on above: Performed By: #### L 9200.0000 #### [facility] [address] [place], [address] Sodium [Moles/Vol] 138 mmol/L Normal 133-145 [facility] Comment on above: Performed By: #### L 9200.0000 #### [facility] [address] [place], [address] Urea nitrogen [Mass/Vol] 23 mg/dL High 4-19 [facility] Comment on above: Performed By: #### L 9200.0000 #### [facility] [address] [place], [address] CBC-Complete Blood Cnt No Di ffon 02-18-2025 Erythrocyte distribution width (RBC) [Ratio] 14.0 % Normal 11.6-14.6 [facility] Comment on above: Performed By: #### L 9200.0000 #### [facility] [address] [place], [address] Hematocrit (Bld) [Volume fraction] 31.6 % Low 37-47 [facility] Comment on above: Performed By: #### L 9200.0000 #### [facility] [address] [place], [address] Hemoglobin (Bld) [Mass/Vol] 10.2 g/dL Low 12.0-15.0 [facility] Comment on above: Performed By: #### L 9200.0000 #### [facility] [address] [place], [address] MCH (RBC) [Entitic mass] 30.0 pg Normal 27.0-32.0 [facility] Comment on above: Performed By: #### L 9200.0000 #### [facility] [address] [place], [address] MCHC (RBC) [Mass/Vol] 32.3 g/dL Normal 32-36 [facility] Comment on above: Performed By: #### L 9200.0000 #### [facility] [address] [place], [address] MCV (RBC) [Entitic vol] 92.9 fL Normal 81-99 [facility] Comment on above: Performed By: #### L 9200.0000 #### [facility] [address] [place], [address] Platelet mean volume (Bld) [Entitic vol] 9.9 fL Normal 6.2-12.0 [facility] Comment on above: Performed By: #### L 9200.0000 #### [facility] [address] [place], [address] Platelets (Bld) [#/Vol] 257 10*3/uL Normal 150-450 [facility] Comment on above: Performed By: #### L 9200.0000 #### [facility] [address] [place], [address] RBC (Bld) [#/Vol] 3.40 10*6/uL Low 4.2-5.4 [facility] Comment on above: Performed By: #### L 9200.0000 #### [facility] [address] [place], [address] RDW SD 47.2 fl High 35.1-43.9 [facility] Comment on above: Performed By: #### L 9200.0000 #### [facility] [address] [place], [address] WBC (Bld) [#/Vol] 4.3 10*3/uL Low 4.4-11.0 [facility] Comment on above: Performed By: #### L 9200.0000 #### [facility] [address] [place], [address] Prothrombin Time w/INRon INR Coag (PPP) [Relative time] 2.5 {INR} Normal [facility] Comment on above: Performed By: #### L 9200.0000 #### [facility] [address] [place], [address] PT Coag (PPP) [Time] 27.6 s High 11.7-14.9 [facility] Comment on above: Performed By: #### L 9200.0000 #### [facility] [address] [place], [address] Basic Metabolic Profile (BMP )on 02-15-2025 BUN/CRE 18.4 RATIO Normal 10-20 [facility] Comment on above: Order Comment: 104.1 Performed By: #### L 9200.0000 #### [facility] [address] [place], [address] Calcium [Mass/Vol] 9.4 mg/dL Normal 7.6-11.0 [facility] Comment on above: Order Comment: 104.1 Performed By: #### L 9200.0000 #### [facility] [address] [place], [address] Chloride [Moles/Vol] 107 mmol/L Normal 98-108 [facility] Comment on above: Order Comment: 104.1 Performed By: #### L 9200.0000 #### [facility] [address] [place], [address] CO2 [Moles/Vol] 16.1 mmol/L Low 21.0-32.0 [facility] Comment on above: Order Comment: 104.1 Performed By: #### L 9200.0000 #### [facility] [address] [place], [address] Creatinine [Mass/Vol] 1.12 mg/dL Normal 0.70-1.20 [facility] Comment on above: Order Comment: 104.1 Performed By: #### L 9200.0000 #### [facility] [address] [place], [address] GAP 11 Normal 5-15 [facility] Comment on above: Order Comment: 104.1 Performed By: #### L 9200.0000 #### [facility] [address] [place], [address] GFR/1.73 sq M.predicted among non-blacks MDRD (S/P/Bld) [Vol rate/Area] 48 mL/min/{1.73_m2} Low >60 [facility] Comment on above: Order Comment: 104.1 Result Comment: mL/m in/1.73m2 CKD-EPI Creatinine Equation (2020) Performed By: #### L 9200.0000 #### [facility] [address] [place], [address] Glucose [Mass/Vol] 90 mg/dL Normal 70-99 [facility] Comment on above: Order Comment: 104.1 Performed By: #### L 9200.0000 #### [facility] [address] [place], [address] Potassium [Moles/Vol] 6.1 mmol/L Invalid Interpretation Code 3.3-5.1 [facility] Comment on above: Order Comment: 104.1 Result Comment: Crit ical result called 02/15/2025-09:30 by Cirilo Bird to Shannen Christianson. Hemolysis present, Results??could be affected. ?? Critical Result(s) Called at: by:??Results read back by same. Performed By: #### L 9200.0000 #### [facility] [address] [place], [address] Sodium [Moles/Vol] 134 mmol/L Normal 133-145 [facility] Comment on above: Order Comment: 104.1 Performed By: #### L 9200.0000 #### [facility] [address] [place], [address] Urea nitrogen [Mass/Vol] 21 mg/dL High 4-19 [facility] Comment on above: Order Comment: 104.1 Performed By: #### L 9200.0000 #### [facility] [address] [place], [address] CBC-Complete Blood Cnt No Di ffon 02-15-2025 Erythrocyte distribution width (RBC) [Ratio] 13.8 % Normal 11.6-14.6 [facility] Comment on above: Order Comment: 104.1 Performed By: #### L 500.2500, L100.0500 #### [facility] [address] [place], [address] Hematocrit (Bld) [Volume fraction] 34.2 % Low 37-47 [facility] Comment on above: Order Comment: 104.1 Performed By: #### L 500.2500, L100.0500 #### [facility] [address] [place], [address] Hemoglobin (Bld) [Mass/Vol] 10.8 g/dL Low 12.0-15.0 [facility] Comment on above: Order Comment: 104.1 Performed By: #### L 500.2500, L100.0500 #### [facility] [address] [place], [address] MCH (RBC) [Entitic mass] 30.4 pg Normal 27.0-32.0 [facility] Comment on above: Order Comment: 104.1 Performed By: #### L 500.2500, L100.0500 #### [facility] [address] [place], [address] MCHC (RBC) [Mass/Vol] 31.6 g/dL Low 32-36 [facility] Comment on above: Order Comment: 104.1 Performed By: #### L 500.2500, L100.0500 #### [facility] [address] [place], [address] MCV (RBC) [Entitic vol] 96.3 fL Normal 81-99 [facility] Comment on above: Order Comment: 104.1 Performed By: #### L 500.2500, L100.0500 #### [facility] [address] [place], [address] Platelet mean volume (Bld) [Entitic vol] 10.4 fL Normal 6.2-12.0 [facility] Comment on above: Order Comment: 104.1 Performed By: #### L 500.2500, L100.0500 #### [facility] [address] [place], [address] Platelets (Bld) [#/Vol] 239 10*3/uL Normal 150-450 [facility] Comment on above: Order Comment: 104.1 Performed By: #### L 500.2500, L100.0500 #### [facility] [address] [place], [address] RBC (Bld) [#/Vol] 3.55 10*6/uL Low 4.2-5.4 [facility] Comment on above: Order Comment: 104.1 Performed By: #### L 500.2500, L100.0500 #### [facility] [address] [place], [address] RDW SD 49.1 fl High 35.1-43.9 [facility] Comment on above: Order Comment: 104.1 Performed By: #### L 500.2500, L100.0500 #### [facility] [address] [place], [address] WBC (Bld) [#/Vol] 4.3 10*3/uL Low 4.4-11.0 [facility] Comment on above: Order Comment: 104.1 Performed By: #### L 500.2500, L100.0500 #### [facility] [address] [place], [address] Prothrombin Time w/INRon INR Normal [facility] Comment on above: Order Comment: 104-1 Result Comment: FING ERSTICK Performed By: #### L 9200.0000 #### [facility] [address] [place], [address] PROTIME Normal 11.7-14.9 [facility] Comment on above: Order Comment: 104-1 Result Comment: FING ERSTICK Performed By: #### L 9200.0000 #### [facility] [address] [place], [address] Protime w/INR Fingerstickon 02-11-2025 INR Coag (PPP) [Relative time] 2.5 {INR} Normal [facility] Comment on above: Result Comment: Crit ical Value > 4.0 Performed By: #### L 9200.0000 #### [facility] [address] [place], [address] Protime [place]en 26.4 SEC High 11.7-14.9 [facility] Comment on above: Performed By: #### L 9200.0000 #### [facility] [address] [place], [address] Protime w/INR Fingerstickon 02-07-2025 INR Coag (PPP) [Relative time] 2.2 {INR} Normal [facility] Comment on above: Result Comment: Crit ical Value > 4.0 Performed By: #### L 9200.0000 #### [facility] [address] [place], [address] Protime [place] 23.6 SEC High 11.7-14.9 [facility] Comment on above: Performed By: #### L 9200.0000 #### [facility] [address] [place], [address] Protime w/INR Fingerstickon 02-04-2025 INR Coag (PPP) [Relative time] 3.6 {INR} Normal [facility] Comment on above: Result Comment: Crit ical Value > 4.0 Performed By: #### L 9200.0000 #### [facility] [address] [place], [address] Protime [place] 36.4 SEC High 11.7-14.9 [facility] Comment on above: Performed By: #### L 9200.0000 #### [facility] [address] [place], [address] Prothrombin Time w/INRon INR Coag (PPP) [Relative time] 3.3 {INR} Normal [facility] Comment on above: Order Comment: 104.1 Performed By: #### L 9200.0000 #### [facility] [address] [place], [address] PT Coag (PPP) [Time] 34.2 s High 11.7-14.9 [facility] Comment on above: Order Comment: 104.1 Performed By: #### L 9200.0000 #### [facility] [address] [place], [address] Protime w/INR Fingerstickon 01-28-2025 INR Coag (PPP) [Relative time] 2.8 {INR} Normal [facility] Comment on above: Result Comment: Crit ical Value > 4.0 Performed By: #### L 9200.0000 #### [facility] [address] [place], [address] Protime [place] 29.1 SEC High 11.7-14.9 [facility] Comment on above: Performed By: #### L 9200.0000 #### [facility] [address] [place], [address] Protime w/INR Fingerstickon 01-25-2025 INR Coag (PPP) [Relative time] 3.4 {INR} Normal [facility] Comment on above: Result Comment: Crit ical Value > 4.0 Performed By: #### L 9200.0000 #### [facility] [address] [place], [address] Protime [place] 34.5 SEC High 11.7-14.9 [facility] Comment on above: Performed By: #### L 9200.0000 #### [facility] [address] [place], [address] Prothrombin Time w/INRon INR Coag (PPP) [Relative time] 2.8 {INR} Normal [facility] Comment on above: Order Comment: 104-1 Performed By: #### L 300.3900 #### [facility] [address] [place], [address] PT Coag (PPP) [Time] 30.5 s High 11.7-14.9 [facility] Comment on above: Order Comment: 104-1 Performed By: #### L 300.3900 #### [facility] [address] [place], [address] Prothrombin Time w/INRon INR Coag (PPP) [Relative time] 2.5 {INR} Normal [facility] Comment on above: Order Comment: 104.1 Performed By: #### L 9200.0000 #### [facility] [address] [place], [address] PT Coag (PPP) [Time] 27.1 s High 11.7-14.9 [facility] Comment on above: Order Comment: 104.1 Performed By: #### L 9200.0000 #### [facility] [address] [place], [address] Prothrombin Time w/INRon INR Coag (PPP) [Relative time] 2.4 {INR} Normal [facility] Comment on above: Order Comment: DID F INGERSTICK TWICE, BOTH TIMES GOT A 'NO CLOT DETECTED'MESSAGE, SO VA A VENOUS SAMPLE. SPOKE WITH NURSE RIVKA Performed By: #### L 9200.0000 #### [facility] [address] [place], [address] PT Coag (PPP) [Time] 26.9 s High 11.7-14.9 [facility] Comment on above: Order Comment: DID F INGERSTICK TWICE, BOTH TIMES GOT A 'NO CLOT DETECTED'MESSAGE, SO VA A VENOUS SAMPLE. SPOKE WITH NURSE RIVKA Performed By: #### L 9200.0000 #### [facility] [address] [place], [address] Protime w/INR Fingerstickon 01-17-2025 INR Coag (PPP) [Relative time] 1.9 {INR} Normal [facility] Comment on above: Result Comment: Crit ical Value > 4.0 Performed By: #### L 9200.0000 #### [facility] [address] [place], [address] Protime [place] 20.8 SEC High 11.7-14.9 [facility] Comment on above: Performed By: #### L 9200.0000 #### [facility] [address] [place], [address] Protime w/INR Fingerstickon 01-16-2025 INR Coag (PPP) [Relative time] 1.5 {INR} Normal [facility] Comment on above: Result Comment: Crit ical Value > 4.0 Performed By: #### L 9200.0000 #### [facility] [address] [place], [address] Protime [place]agsen 17.2 SEC High 11.7-14.9 [facility] Comment on above: Performed By: #### L 9200.0000 #### [facility] [address] [place], [address] Prothrombin Time w/INRon INR Coag (PPP) [Relative time] 1.2 {INR} Normal [facility] Comment on above: Performed By: #### L 9200.0000 #### [facility] [address] [place], [address] PT Coag (PPP) [Time] 15.4 s High 11.7-14.9 [facility] Comment on above: Performed By: #### L 9200.0000 #### [facility] [address] [place], [address] 36on 01-08-2025 36 Normal [facility] Basic Metabolic Profile (BMP )on 01-07-2025 BUN/CRE 17.7 RATIO Normal 10-20 [facility] Comment on above: Order Comment: 104.1 Performed By: #### L 9200.0000 #### [facility] [address] [place], [address] Calcium [Mass/Vol] 9.1 mg/dL Normal 7.6-11.0 [facility] Comment on above: Order Comment: 104.1 Performed By: #### L 9200.0000 #### [facility] [address] [place], [address] Chloride [Moles/Vol] 109 mmol/L High 98-108 [facility] Comment on above: Order Comment: 104.1 Performed By: #### L 9200.0000 #### [facility] [address] [place], [address] CO2 [Moles/Vol] 19.7 mmol/L Low 21.0-32.0 [facility] Comment on above: Order Comment: 104.1 Performed By: #### L 9200.0000 #### [facility] [address] [place], [address] Creatinine [Mass/Vol] 1.15 mg/dL Normal 0.70-1.20 [facility] Comment on above: Order Comment: 104.1 Performed By: #### L 9200.0000 #### [facility] [address] [place], [address] GAP 10 Normal 5-15 [facility] Comment on above: Order Comment: 104.1 Performed By: #### L 9200.0000 #### [facility] [address] [place], [address] GFR/1.73 sq M.predicted among non-blacks MDRD (S/P/Bld) [Vol rate/Area] 47 mL/min/{1.73_m2} Low >60 [facility] Comment on above: Order Comment: 104.1 Result Comment: mL/m in/1.73m2 CKD-EPI Creatinine Equation (2020) Performed By: #### L 9200.0000 #### [facility] [address] [place], [address] Glucose [Mass/Vol] 87 mg/dL Normal 70-99 [facility] Comment on above: Order Comment: 104.1 Performed By: #### L 9200.0000 #### [facility] [address] [place], [address] Potassium [Moles/Vol] 5.0 mmol/L Normal 3.3-5.1 [facility] Comment on above: Order Comment: 104.1 Performed By: #### L 9200.0000 #### [facility] [address] [place], [address] Sodium [Moles/Vol] 138 mmol/L Normal 133-145 [facility] Comment on above: Order Comment: 104.1 Performed By: #### L 9200.0000 #### [facility] [address] [place], [address] Urea nitrogen [Mass/Vol] 20 mg/dL High 4-19 [facility] Comment on above: Order Comment: 104.1 Performed By: #### L 9200.0000 #### [facility] [address] [place], [address] CBC-Complete Blood Cnt No Di ffon 01-07-2025 Erythrocyte distribution width (RBC) [Ratio] 16.5 % High 11.6-14.6 [facility] Comment on above: Order Comment: 104.1 Performed By: #### L 9200.0000 #### [facility] [address] [place], [address] Hematocrit (Bld) [Volume fraction] 30.4 % Low 37-47 [facility] Comment on above: Order Comment: 104.1 Performed By: #### L 9200.0000 #### [facility] [address] [place], [address] Hemoglobin (Bld) [Mass/Vol] 9.8 g/dL Low 12.0-15.0 [facility] Comment on above: Order Comment: 104.1 Performed By: #### L 9200.0000 #### [facility] [address] [place], [address] MCH (RBC) [Entitic mass] 29.9 pg Normal 27.0-32.0 [facility] Comment on above: Order Comment: 104.1 Performed By: #### L 9200.0000 #### [facility] [address] [place], [address] MCHC (RBC) [Mass/Vol] 32.2 g/dL Normal 32-36 [facility] Comment on above: Order Comment: 104.1 Performed By: #### L 9200.0000 #### [facility] [address] [place], [address] MCV (RBC) [Entitic vol] 92.7 fL Normal 81-99 [facility] Comment on above: Order Comment: 104.1 Performed By: #### L 9200.0000 #### [facility] [address] [place], [address] Platelet mean volume (Bld) [Entitic vol] 10.0 fL Normal 6.2-12.0 [facility] Comment on above: Order Comment: 104.1 Performed By: #### L 9200.0000 #### [facility] [address] [place], [address] Platelets (Bld) [#/Vol] 254 10*3/uL Normal 150-450 [facility] Comment on above: Order Comment: 104.1 Performed By: #### L 9200.0000 #### [facility] [address] [place], [address] RBC (Bld) [#/Vol] 3.28 10*6/uL Low 4.2-5.4 [facility] Comment on above: Order Comment: 104.1 Performed By: #### L 9200.0000 #### [facility] [address] [place], [address] RDW SD 55.9 fl High 35.1-43.9 [facility] Comment on above: Order Comment: 104.1 Performed By: #### L 9200.0000 #### [facility] [address] [place], [place], [address] WBC (Bld) [#/Vol] 4.5 10*3/uL Normal 4.4-11.0 [facility] Comment on above: Order Comment: 104.1 Performed By: #### L 9200.0000 #### [facility] [address] [place], [place], [address] 36on 01-04-2025 36 Normal [facility] 36 Normal [facility] Progress Noteon 12-24-2024 Progress Note Normal [facility] No Panel Informationon 12-13 Left MICHELLE 0.71 [facility] Left arm BP 121 mmHg [facility] Left Dist Outflow EDV 6.5 cm/s [facility] Left Dist Outflow PSV 51.5 cm/s [facility] Left dorsalis pedis BP 67 mmHg [facility] Left Graft 1 Proximal Popliteal Stent [facility] Left Inflow Artery EDV 8.5 cm/s [facility] Left Inflow Artery PSV 46.5 cm/s [facility] Left Mid Outflow EDV 6.5 cm/s [facility] Left Mid Outflow PSV 58.1 cm/s [facility] Left Outflow Vessel EDV 9.8 cm/s S [facility] Left Outflow Vessel PSV 89.9 cm/s S [facility] Left posterior tibial 94 mmHg [facility] Left Prox Outflow EDV 6.5 cm/s [facility] Left Prox Outflow PSV 51.5 cm/s [facility] Right MICHELLE 0.96 [facility] Right arm BP 133 [facility] Right YARITZA dist PSV 53.6 cm/s [facility] Right GRADUATE TEACHING ASSISTANT dist PSV 144.6 cm/s [facility] Right GRADUATE TEACHING ASSISTANT mid AP diameter 0.92 cm [facility] Right GRADUATE TEACHING ASSISTANT mid TR diameter 0.89 cm [facility] Right GRADUATE TEACHING ASSISTANT prox PSV 133.7 cm/s [facility] Right Dist Outflow EDV 0 cm/s [facility] Right Dist Outflow PSV 45.3 cm/s [facility] Right dorsalis pedis BP [address] [facility] Right EIA dist PSV 144.6 cm/s [facility] Right Graft 1 Distal SFA Stent [facility] Right Inflow Artery EDV 4.6 cm/s S [facility] Right Inflow Artery PSV 100.7 cm/s S [facility] Right Mid Outflow EDV 2.3 cm/s Sum [...] artery mid TR diameter 0.6 cm [facility] Right posterior tibial 128 mmHg [facility] Right Prox Outflow EDV 0 cm/s [facility] Right Prox Outflow PSV 68.6 cm/s [facility] Right ATHLETIC INSTRUCTOR dist PSV 48.1 cm/s [facility] Right [...] CPACS Progress Noteon 12-05-2024 Progress Note Normal [facility] 36on 11-23-2024 36 Normal [facility] 36 Normal [facility] 36 Normal [facility] [id number] 11-22-2024 [id number] Normal [facility] Anesthesia Noteon 11-22-2024 Anesthesia Note Normal [facility] No Panel Informationon 11-22 There is no interpretation needed for this exam. IMAGING Nursing Noteon 11-22-2024 Nursing Note Patient arrived on unit. Name and date verified. Attached to monitors. Vital signs stable. Normal [facility] Op Noteon 11-22-2024 Op Note Normal [facility] Progress Noteon 11-22-2024 Progress Note POA called to bedsid e and discharge instructions reviewed. Groin site remains intact and LE distal pulses unchanged via assessment with doppler. Transportation called for waste picker Normal [facility] Progress Note POA given updated vi a phone call. Made aware of patient's orders to lay flat until 1325. Daughter in law stated that she will call care facility later to make arrangements for transportation back. Normal [facility] Anesthesia Noteon 11-21-2024 Anesthesia Note Normal [facility] Basic Metabolic Profile (BMP )on 11-15-2024 BUN/CRE 18.3 RATIO Normal 10-20 [facility] Comment on above: Order Comment: 104-1 Performed By: #### L 9200.0000 #### [facility] [place], [address] Calcium [Mass/Vol] 9.0 mg/dL Normal 7.6-11.0 [facility] Comment on above: Order Comment: 104-1 Performed By: #### L 9200.0000 #### [facility] [address] [place], [address] Chloride [Moles/Vol] 108 mmol/L Normal 98-108 [facility] Comment on above: Order Comment: 104-1 Performed By: #### L 9200.0000 #### [facility] [address] [place], [address] CO2 [Moles/Vol] 22.1 mmol/L Normal 21.0-32.0 [facility] Comment on above: Order Comment: 104-1 Performed By: #### L 9200.0000 #### [facility] [address] [place], [address] Creatinine [Mass/Vol] 1.03 mg/dL Normal 0.70-1.20 [facility] Comment on above: Order Comment: 104-1 Performed By: #### L 9200.0000 #### [facility] [address] [place], [address] GAP 9 Normal 5-15 [facility] Comment on above: Order Comment: 104-1 Performed By: #### L 9200.0000 #### [facility] [address] [place], [address] GFR/1.73 sq M.predicted among non-blacks MDRD (S/P/Bld) [Vol rate/Area] 53 mL/min/{1.73_m2} Low >60 [facility] Comment on above: Order Comment: 104-1 Result Comment: mL/m in/1.73m2 CKD-EPI Creatinine Equation (2020) Performed By: #### L 9200.0000 #### [facility] [address] [place], [address] Glucose [Mass/Vol] 91 mg/dL Normal 70-99 [facility] Comment on above: Order Comment: 104-1 Performed By: #### L 9200.0000 #### [facility] [address] [place], [address] Potassium [Moles/Vol] 4.8 mmol/L Normal 3.3-5.1 [facility] Comment on above: Order Comment: 104-1 Performed By: #### L 9200.0000 #### [facility] [address] [place], [address] Sodium [Moles/Vol] 138 mmol/L Normal 133-145 [facility] Comment on above: Order Comment: 104-1 Performed By: #### L 9200.0000 #### [facility] [address] [place], [address] Urea nitrogen [Mass/Vol] 19 mg/dL Normal 4-19 [facility] Comment on above: Order Comment: 104-1 Performed By: #### L 9200.0000 #### [facility] [address] [place], [address] CBC W/Diff, Automatedon 05-0 -2024 Absolute Lymph 1.77 X10 3/uL Normal 0.83-4.51 [facility] Comment on above: Order Comment: 104-1 Performed By: #### L 9200.0000 #### [facility] [address] [place], [address] Absolute Neut 3.2 X10 3/uL Normal 2.0-7.7 [facility] Comment on above: Order Comment: 104-1 Performed By: #### L 9200.0000 #### [facility] [address] [place], [address] Basophils/100 WBC (Bld) 0.7 % Normal 0-1 [facility] Comment on above: Order Comment: 104-1 Performed By: #### L 9200.0000 #### [facility] [address] [place], [address] Eosinophils/100 WBC (Bld) 2.9 % Normal 0-5 [facility] Comment on above: Order Comment: 104-1 Performed By: #### L 9200.0000 #### [facility] [address] [place], [address] Erythrocyte distribution width (RBC) [Ratio] 18.8 % High 11.6-14.6 [facility] Comment on above: Order Comment: 104-1 Performed By: #### L 9200.0000 #### [facility] [address] [place], [address] Hematocrit (Bld) [Volume fraction] 30.9 % Low 37-47 [facility] Comment on above: Order Comment: 104-1 Performed By: #### L 9200.0000 #### [facility] [address] [place], [address] Hemoglobin (Bld) [Mass/Vol] 9.8 g/dL Low 12.0-15.0 [facility] Comment on above: Order Comment: 104-1 Performed By: #### L 9200.0000 #### [facility] [address] [place], [address] IG% 0.200 Normal 0.0-0.9 [facility] Comment on above: Order Comment: 104-1 Result Comment: IG% - Immature Granulocytes (promyelocytes, myelocytes and metamyelocytes) > 1% indicates that a LEFT SHIFT is Present. Performed By: #### L 9200.0000 #### [facility] [address] [place], [address] Lymphocytes/100 WBC (Bld) 30.3 % Normal 19-41 [facility] Comment on above: Order Comment: 104-1 Performed By: #### L 9200.0000 #### [facility] [address] [place], [address] MCH (RBC) [Entitic mass] 28.4 pg Normal 27.0-32.0 [facility] Comment on above: Order Comment: 104-1 Performed By: #### L 9200.0000 #### [facility] [address] [place], [address] MCHC (RBC) [Mass/Vol] 31.7 g/dL Low 32-36 [facility] Comment on above: Order Comment: 104-1 Performed By: #### L 9200.0000 #### [facility] [address] [place], [address] MCV (RBC) [Entitic vol] 89.6 fL Normal 81-99 [facility] Comment on above: Order Comment: 104-1 Performed By: #### L 9200.0000 #### [facility] [address] [place], [address] Monocytes/100 WBC (Bld) 11.3 % High 0-10 [facility] Comment on above: Order Comment: 104-1 Performed By: #### L 9200.0000 #### [facility] [address] [place], [address] Neutrophils/100 WBC (Bld) 54.6 % Normal 47-70 [facility] Comment on above: Order Comment: 104-1 Performed By: #### L 9200.0000 #### [facility] [address] [place], [address] Nucleated RBC (Bld) [#/Vol] 0 10*3/uL Normal 0-5 [facility] Comment on above: Order Comment: 104-1 Performed By: #### L 9200.0000 #### [facility] [address] [place], [address] Platelet mean volume (Bld) [Entitic vol] 10.2 fL Normal 6.2-12.0 [facility] Comment on above: Order Comment: 104-1 Performed By: #### L 9200.0000 #### [facility] [address] [place], [address] Platelets (Bld) [#/Vol] 303 10*3/uL Normal 150-450 [facility] Comment on above: Order Comment: 104-1 Performed By: #### L 9200.0000 #### [facility] [address] [place], [address] RBC (Bld) [#/Vol] 3.45 10*6/uL Low 4.2-5.4 [facility] Comment on above: Order Comment: 104-1 Performed By: #### L 9200.0000 #### [facility] [address] [place], [address] RDW SD 61.8 fl High 35.1-43.9 [facility] Comment on above: Order Comment: 104-1 Performed By: #### L 9200.0000 #### [facility] [address] [place], [address] WBC (Bld) [#/Vol] 5.8 10*3/uL Normal 4.4-11.0 [facility] Comment on above: Order Comment: 104-1 Performed By: #### L 9200.0000 #### [facility] [address] [place], [address] 36on 11-14-2024 36 Normal [facility] 36on 11-08-2024 36 Fidel called to state that she spoke with Mel and she would like to proceed with angio. Normal [facility] Progress Noteon 11-05-2024 Progress Note Normal [facility] Anion gap in Serum or Plasma Ordered By: Megan Beebe on 10-08-2024 Anion gap [Moles/Vol] 12 mmol/L 5-15 [facility] BUN/creatinine ratioOrdered By: Megan Beebe on 10-08-2024 Urea nitrogen/Creatinine [Mass ratio] 16.5 mg/mg 10-20 [facility] Basic Metabolic Profile (BMP )on 10-08-2024 BUN/CRE 16.5 RATIO Normal 10-20 [facility] Comment on above: Order Comment: 104.1 Performed By: #### L 500.2500, L100.0500 #### [facility] [address] [place], [address] Calcium [Mass/Vol] 9.0 mg/dL Normal 7.6-11.0 [facility] Comment on above: Order Comment: 104.1 Performed By: #### L 500.2500, L100.0500 #### [facility] [address] [place], [address] Chloride [Moles/Vol] 106 mmol/L Normal 98-108 [facility] Comment on above: Order Comment: 104.1 Performed By: #### L 500.2500, L100.0500 #### [facility] [address] [place], [address] CO2 [Moles/Vol] 20.0 mmol/L Low 21.0-32.0 [facility] Comment on above: Order Comment: 104.1 Performed By: #### L 500.2500, L100.0500 #### [facility] [address] [place], [address] Creatinine [Mass/Vol] 1.05 mg/dL Normal 0.70-1.20 [facility] Comment on above: Order Comment: 104.1 Performed By: #### L 500.2500, L100.0500 #### [facility] [address] [place], [address] GAP 12 Normal 5-15 [facility] Comment on above: Order Comment: 104.1 Performed By: #### L 500.2500, L100.0500 #### [facility] [address] [place], [address] GFR/1.73 sq M.predicted among non-blacks MDRD (S/P/Bld) [Vol rate/Area] 52 mL/min/{1.73_m2} Low >60 [facility] Comment on above: Order Comment: 104.1 Result Comment: mL/m in/1.73m2 CKD-EPI Creatinine Equation (2020) Performed By: #### L 500.2500, L100.0500 #### [facility] [address] [place], [address] Glucose [Mass/Vol] 98 mg/dL Normal 70-99 [facility] Comment on above: Order Comment: 104.1 Performed By: #### L 500.2500, L100.0500 #### [facility] [address] [place], [address] Potassium [Moles/Vol] 4.3 mmol/L Normal 3.3-5.1 [facility] Comment on above: Order Comment: 104.1 Result Comment: Hemo lysis present, Results??could be affected. ?? Performed By: #### L 500.2500, L100.0500 #### [facility] [address] [place], [address] Sodium [Moles/Vol] 137 mmol/L Normal 133-145 [facility] Comment on above: Order Comment: 104.1 Performed By: #### L 500.2500, L100.0500 #### [facility] [address] [place], [address] Urea nitrogen [Mass/Vol] 17 mg/dL Normal 4-19 [facility] Comment on above: Order Comment: 104.1 Performed By: #### L 500.2500, L100.0500 #### [facility] [address] [place], [address] CBC-Complete Blood Cnt No Di ffon 10-08-2024 Erythrocyte distribution width (RBC) [Ratio] 17.5 % High 11.6-14.6 [facility] Comment on above: Order Comment: 104.1 Performed By: #### L 500.2500, L100.0500 #### [facility] [address] [place], [address] Hematocrit (Bld) [Volume fraction] 30.4 % Low 37-47 [facility] Comment on above: Order Comment: 104.1 Performed By: #### L 500.2500, L100.0500 #### [facility] [address] [place], [address] Hemoglobin (Bld) [Mass/Vol] 9.6 g/dL Low 12.0-15.0 [facility] Comment on above: Order Comment: 104.1 Performed By: #### L 500.2500, L100.0500 #### [facility] [address] [place], [address] MCH (RBC) [Entitic mass] 27.4 pg Normal 27.0-32.0 [facility] Comment on above: Order Comment: 104.1 Performed By: #### L 500.2500, L100.0500 #### [facility] [address] [place], [address] MCHC (RBC) [Mass/Vol] 31.6 g/dL Low 32-36 [facility] Comment on above: Order Comment: 104.1 Performed By: #### L 500.2500, L100.0500 #### [facility] [address] [place], [address] MCV (RBC) [Entitic vol] 86.9 fL Normal 81-99 [facility] Comment on above: Order Comment: 104.1 Performed By: #### L 500.2500, L100.0500 #### [facility] [address] [place], [address] Platelet mean volume (Bld) [Entitic vol] 10.3 fL Normal 6.2-12.0 [facility] Comment on above: Order Comment: 104.1 Performed By: #### L 500.2500, L100.0500 #### [facility] [address] [place], [address] Platelets (Bld) [#/Vol] 408 10*3/uL Normal 150-450 [facility] Comment on above: Order Comment: 104.1 Performed By: #### L 500.2500, L100.0500 #### [facility] [address] [place], [address] RBC (Bld) [#/Vol] 3.50 10*6/uL Low 4.2-5.4 [facility] Comment on above: Order Comment: 104.1 Performed By: #### L 500.2500, L100.0500 #### [facility] [address] [place], [address] RDW SD 56.2 fl High 35.1-43.9 [facility] Comment on above: Order Comment: 104.1 Performed By: #### L 500.2500, L100.0500 #### [facility] [address] [place], [address] WBC (Bld) [#/Vol] 6.4 10*3/uL Normal 4.4-11.0 [facility] Comment on above: Order Comment: 104.1 Performed By: #### L 500.2500, L100.0500 #### [facility] [address] [place], [address] Carbon dioxide, total [Moles /volume] in Central venous bloodOrdered By: Megan Beebe on 10-08-2024 CO2 [Moles/Vol] 20.0 mmol/L Low 21.0-32.0 [facility] Chloride assayOrdered By: Johnathan Guzman on 10-08-2024 Chloride [Moles/Vol] 106 mmol/L 98-108 [facility] Erythrocyte distribution wid th ratioOrdered By: Megan Beebe on 10-08-2024 Erythrocyte distribution width (RBC) [Ratio] 17.5 % High 11.6-14.6 [facility] Erythrocyte distribution wid th standard deviationOrdered By: Megan Beebe on 10-08-2024 Erythrocyte distribution width (RBC) [Entitic vol] 56.2 fL High 35.1-43.9 [facility] GFR/1.73 sq M.predicted gricelda g non-blacks MDRD (S/P/Bld) [Vol rate/Area]Ordered By: Megan Beebe on 10-08-2024 Estimated GFR (MDRD) Non-Af Amer 52 Low >60 [facility] Comment on above: mL/min/1.73m2 CKD-EP I Creatinine Equation (2020) Hematocrit Auto (Bld) [Volum e fraction]Ordered By: Megan Beebe on 10-08-2024 Hematocrit (Bld) [Volume fraction] 30.4 % Low 37-47 [facility] Hemoglobin measurementOrdere d By: Megan Beebe on 10-08-2024 Hemoglobin (Bld) [Mass/Vol] 9.6 g/dL Low 12.0-15.0 [facility] MCV (mean corpuscular volume ) determinationOrdered By: Megan Beebe on 10-08-2024 MCV (RBC) [Entitic vol] 86.9 fL 81-99 [facility] Mean corpuscular hemoglobin (MCH) determinationOrdered By: Megan Beebe on 10-08-2024 MCH (RBC) [Entitic mass] 27.4 pg 27.0-32.0 [facility] Mean corpuscular hemoglobin concentration (MCHC) determinationOrdered By: Megan Beebe on 10-08-2024 MCHC (RBC) [Mass/Vol] 31.6 g/dL Low 32-36 [facility] Mean platelet volume determi nationOrdered By: Megan Beebe on 10-08-2024 Platelet mean volume (Bld) [Entitic vol] 10.3 fL 6.2-12.0 [facility] Platelet countOrdered By: Johnathan Guzman on 10-08-2024 Platelets (Bld) [#/Vol] 408 10*3/uL 150-450 [facility] Potassium (Unsp spec) [Mass/ Vol]Ordered By: Megan Beebe on 10-08-2024 Potassium [Moles/Vol] 4.3 mmol/L 3.3-5.1 [facility] Comment on above: Hemolysis present, R esults could be affected. RBC Auto (Bld) [#/Vol]Ordere d By: Megan Beebe on 10-08-2024 RBC (Bld) [#/Vol] 3.50 10*6/uL Low 4.2-5.4 [facility] Serum creatinine measurement (mass/volume)Ordered By: Megan Beebe on 10-08-2024 Creatinine [Mass/Vol] 1.05 mg/dL 0.70-1.20 [facility] Serum glucose measurement (m ass/volume)Ordered By: Megan Beebe on 10-08-2024 Glucose [Mass/Vol] 98 mg/dL 70-99 [facility] Serum or plasma calcium reyna urement (mass/volume)Ordered By: Megan Beebe on 10-08-2024 Calcium [Mass/Vol] 9.0 mg/dL 7.6-11.0 [facility] Serum or plasma urea nitroge n measurement (mass/volume)Ordered By: Megan Beebe on 10-08-2024 Urea nitrogen [Mass/Vol] 17 mg/dL 4-19 [facility] Sodium levelOrdered By: Juan C Beebe on 10-08-2024 Sodium [Moles/Vol] 137 mmol/L 133-145 [facility] White blood cell (WBC) count Ordered By: Megan Beebe on 10-08-2024 WBC (Bld) [#/Vol] 6.4 10*3/uL 4.4-11.0 [facility] BSCAN OD (RIGHT EYE)on 10-01 [facility] Radiology Study observation (narrative) [facility] BUN/creatinine ratioOrdered By: Megan Beebe on 09-17-2024 Urea nitrogen/Creatinine [Mass ratio] 15.7 mg/mg 10-20 [facility] Basic Metabolic Profile (BMP )on 09-17-2024 Anion gap [Moles/Vol] 10 mmol/L Normal 5-15 [facility] Comment on above: Order Comment: 104.1 Performed By: #### L 9200.0000 #### [facility] [address] [place], [address] BUN/CRE 15.7 RATIO Normal 10-20 [facility] Comment on above: Order Comment: 104.1 Performed By: #### L 9200.0000 #### [facility] [address] [place], [address] Calcium [Mass/Vol] 9.0 mg/dL Normal 7.6-11.0 [facility] Comment on above: Order Comment: 104.1 Performed By: #### L 9200.0000 #### [facility] [address] [place], [address] Chloride [Moles/Vol] 108 mmol/L Normal 96-108 [facility] Comment on above: Order Comment: 104.1 Performed By: #### L 9200.0000 #### [facility] [address] [place], [address] CO2 [Moles/Vol] 21.6 mmol/L Low 22.0-29.0 [facility] Comment on above: Order Comment: 104.1 Performed By: #### L 9200.0000 #### [facility] [address] [place], [address] Creatinine [Mass/Vol] 1.03 mg/dL Normal 0.70-1.20 [facility] Comment on above: Order Comment: 104.1 Performed By: #### L 9200.0000 #### [facility] [address] [place], [address] GFR/1.73 sq M.predicted among non-blacks MDRD (S/P/Bld) [Vol rate/Area] 54 mL/min/{1.73_m2} Low >60 [facility] Comment on above: Order Comment: 104.1 Result Comment: mL/m in/1.73m2 CKD-EPI Creatinine Equation (2020) Performed By: #### L 9200.0000 #### [facility] [address] [place], [address] Glucose [Mass/Vol] 90 mg/dL Normal 70-99 [facility] Comment on above: Order Comment: 104.1 Performed By: #### L 9200.0000 #### [facility] [address] [place], [address] Potassium [Moles/Vol] 4.5 mmol/L Normal 3.3-5.1 [facility] Comment on above: Order Comment: 104.1 Performed By: #### L 9200.0000 #### [facility] [address] [place], [address] Sodium [Moles/Vol] 140 mmol/L Normal 133-145 [facility] Comment on above: Order Comment: 104.1 Performed By: #### L 9200.0000 #### [facility] [address] [place], [address] Urea nitrogen [Mass/Vol] 16 mg/dL Normal 4-19 [facility] Comment on above: Order Comment: 104.1 Performed By: #### L 9200.0000 #### [facility] [address] [place], [address] Carbon dioxide measurementOr dered By: Megan Beebe on 09-17-2024 CO2 [Moles/Vol] 21.6 mmol/L Low 22.0-29.0 [facility] Chloride measurementOrdered By: Megan Beebe on 09-17-2024 Chloride [Moles/Vol] 108 mmol/L 96-108 [facility] GFR/1.73 sq M.predicted gricelda g non-blacks MDRD (S/P/Bld) [Vol rate/Area]Ordered By: Megan Beebe on 09-17-2024 Estimated GFR (MDRD) Non-Af Amer 54 Low >60 [facility] Comment on above: mL/min/1.73m2 CKD-EP I Creatinine Equation (2020) Serum creatinine measurement (mass/volume)Ordered By: Megan Beebe on 09-17-2024 Creatinine [Mass/Vol] 1.03 mg/dL 0.70-1.20 [facility] Serum glucose measurement (m ass/volume)Ordered By: Megan Beebe on 09-17-2024 Glucose [Mass/Vol] 90 mg/dL 70-99 [facility] Serum or plasma anion gap de termination (moles/volume)Ordered By: Megan Beebe on 09-17-2024 Anion gap [Moles/Vol] 10 mmol/L 5-15 [facility] Serum or plasma calcium reyna urement (mass/volume)Ordered By: Megan Beebe on 09-17-2024 Calcium [Mass/Vol] 9.0 mg/dL 7.6-11.0 [facility] Serum or plasma potassium me asurementOrdered By: Megan Beebe on 09-17-2024 Potassium [Moles/Vol] 4.5 mmol/L 3.3-5.1 [facility] Serum or plasma sodium measu rement (moles/volume)Ordered By: Megan Beebe on 09-17-2024 Sodium [Moles/Vol] 140 mmol/L 133-145 [facility] Serum or plasma urea nitroge n measurement (mass/volume)Ordered By: Megan Beebe on 09-17-2024 Urea nitrogen [Mass/Vol] 16 mg/dL 4-19 [facility] Basic Metabolic Profile (BMP )on 09-10-2024 BUN/CRE 17.9 RATIO Normal 10-20 [facility] Comment on above: Order Comment: 104.1 Performed By: #### L 9200.0000 #### [facility] [address] [place], [place], [address] CA,Total 9.0 mg/dL Normal 8.5-10.1 [facility] Comment on above: Order Comment: 104.1 Performed By: #### L 9200.0000 #### [facility] [address] [place], [place], [address] Chloride [Moles/Vol] 108 mmol/L High 98-107 [facility] Comment on above: Order Comment: 104.1 Performed By: #### L 9200.0000 #### [facility] [address] [place], [address] CO2 [Moles/Vol] 24.0 mmol/L Normal 21.0-32.0 [facility] Comment on above: Order Comment: 104.1 Performed By: #### L 9200.0000 #### [facility] [address] [place], [address] Creatinine [Mass/Vol] 1.23 mg/dL High 0.55-1.02 [facility] Comment on above: Order Comment: 104.1 Result Comment: The validity of the calculated GFR GFRAA in patients over 70 years has not been determined. Clinical correlation is essential. Performed By: #### L 9200.0000 #### [facility] [address] [place], [address] EST GFR - AA 53 mL/min Low >60 [facility] Comment on above: Order Comment: 104.1 Result Comment: Afri can [place] GFR Calc Performed By: #### L 9200.0000 #### [facility] [address] [place], [address] GAP 5 Normal 5-15 [facility] Comment on above: Order Comment: 104.1 Performed By: #### L 9200.0000 #### [facility] [address] [place], [address] GFR/1.73 sq M.predicted among non-blacks MDRD (S/P/Bld) [Vol rate/Area] 44 mL/min/{1.73_m2} Low >60 [facility] Comment on above: Order Comment: 104.1 Result Comment: Non- GFR Calc Performed By: #### L 9200.0000 #### [facility] [address] [place], [address] Glucose [Mass/Vol] 98 mg/dL Normal 74-106 [facility] Comment on above: Order Comment: 104.1 Performed By: #### L 9200.0000 #### [facility] [address] [place], [address] Potassium [Moles/Vol] 4.5 mmol/L Normal 3.5-5.1 [facility] Comment on above: Order Comment: 104.1 Performed By: #### L 9200.0000 #### [facility] [address] [place], [address] Sodium [Moles/Vol] 137 mmol/L Normal 136-145 [facility] Comment on above: Order Comment: 104.1 Performed By: #### L 9200.0000 #### [facility] [address] [place], [address] Urea nitrogen [Mass/Vol] 22 mg/dL High 7-18 [facility] Comment on above: Order Comment: 104.1 Performed By: #### L 9200.0000 #### [facility] [address] [place], [address] Blood urea nitrogen (BUN)/cr eatinine ratioOrdered By: Megan Beebe on 09-10-2024 Urea nitrogen/Creatinine [Mass ratio] 17.9 mg/mg 10-20 [facility] CBC-Complete Blood Cnt No Di ffon 09-10-2024 Erythrocyte distribution width (RBC) [Ratio] 17.8 % High 11.6-14.6 [facility] Comment on above: Order Comment: 104.1 Performed By: #### L 9200.0000 #### [facility] [address] [place], [address] Hematocrit (Bld) [Volume fraction] 31.9 % Low 37-47 [facility] Comment on above: Order Comment: 104.1 Performed By: #### L 9200.0000 #### [facility] [address] [place], [address] Hemoglobin (Bld) [Mass/Vol] 9.7 g/dL Low 12.0-15.0 [facility] Comment on above: Order Comment: 104.1 Performed By: #### L 9200.0000 #### [facility] [address] [place], [address] MCH (RBC) [Entitic mass] 26.1 pg Low 27.0-32.0 [facility] Comment on above: Order Comment: 104.1 Performed By: #### L 9200.0000 #### [facility] [address] [place], [address] MCHC (RBC) [Mass/Vol] 30.4 g/dL Low 32-36 [facility] Comment on above: Order Comment: 104.1 Performed By: #### L 9200.0000 #### [facility] [address] [place], [address] MCV (RBC) [Entitic vol] 85.8 fL Normal 81-99 [facility] Comment on above: Order Comment: 104.1 Performed By: #### L 9200.0000 #### [facility] [address] [place], [address] Platelet mean volume (Bld) [Entitic vol] 9.5 fL Normal 6.2-12.0 [facility] Comment on above: Order Comment: 104.1 Performed By: #### L 9200.0000 #### [facility] [address] [place], [address] Platelets (Bld) [#/Vol] 485 10*3/uL High 150-450 [facility] Comment on above: Order Comment: 104.1 Performed By: #### L 9200.0000 #### [facility] [address] [place], [address] RBC (Bld) [#/Vol] 3.72 10*6/uL Low 4.2-5.4 [facility] Comment on above: Order Comment: 104.1 Performed By: #### L 9200.0000 #### [facility] [address] [place], [address] RDW SD 55.2 fl High 35.1-43.9 [facility] Comment on above: Order Comment: 104.1 Performed By: #### L 9200.0000 #### [facility] [address] [place], [address] WBC (Bld) [#/Vol] 7.7 10*3/uL Normal 4.4-11.0 [facility] Comment on above: Order Comment: 104.1 Performed By: #### L 9200.0000 #### [facility] [address] [place], [place], [address] Carbon dioxide measurementOr dered By: Megan Beebe on 09-10-2024 CO2 [Moles/Vol] 24.0 mmol/L 21.0-32.0 [facility] Chloride measurementOrdered By: Megan Beebe on 09-10-2024 Chloride [Moles/Vol] 108 mmol/L High 98-107 [facility] Erythrocyte distribution wid th ratioOrdered By: Megan Beebe on 09-10-2024 Erythrocyte distribution width (RBC) [Ratio] 17.8 % High 11.6-14.6 [facility] Erythrocyte distribution wid th standard deviationOrdered By: Megan Beebe on 09-10-2024 Erythrocyte distribution width (RBC) [Entitic vol] 55.2 fL High 35.1-43.9 [facility] Estimated glomerular filtrat ion rate (GFR) AmericanOrdered By: Megan Beebe on 09-10-2024 Estimated GFR (MDRD) Amer 53 mL/min Low >60 [facility] Comment on above: GFR Calc Glomerular filtration rate ( GFR) estimationOrdered By: Megan Beebe on 09-10-2024 Estimated GFR (MDRD) Non-Af Amer 44 mL/min Low >60 [facility] Comment on above: Non- GFR Calc Glucose measurementOrdered B y: Megan Beebe on 09-10-2024 Glucose [Mass/Vol] 98 mg/dL 74-106 [facility] Hematocrit Auto (Bld) [Volum e fraction]Ordered By: Megan Beebe on 09-10-2024 Hematocrit (Bld) [Volume fraction] 31.9 % Low 37-47 [facility] Hemoglobin measurementOrdere d By: Megan Beebe on 09-10-2024 Hemoglobin (Bld) [Mass/Vol] 9.7 g/dL Low 12.0-15.0 [facility] MCV (mean corpuscular volume ) determinationOrdered By: Megan Beebe on 09-10-2024 MCV (RBC) [Entitic vol] 85.8 fL 81-99 [facility] Mean corpuscular hemoglobin (MCH) determinationOrdered By: Megan Beebe on 09-10-2024 MCH (RBC) [Entitic mass] 26.1 pg Low 27.0-32.0 [facility] Mean corpuscular hemoglobin concentration (MCHC) determinationOrdered By: Megan Beebe on 09-10-2024 MCHC (RBC) [Mass/Vol] 30.4 g/dL Low 32-36 [facility] Mean platelet volume determi nationOrdered By: Megan Beebe on 09-10-2024 Platelet mean volume (Bld) [Entitic vol] 9.5 fL 6.2-12.0 [facility] Platelet countOrdered By: Johnathan Guzman on 09-10-2024 Platelets (Bld) [#/Vol] 485 10*3/uL High 150-450 [facility] Potassium measurementOrdered By: Megan Beebe on 09-10-2024 Potassium [Moles/Vol] 4.5 mmol/L 3.5-5.1 [facility] RBC Auto (Bld) [#/Vol]Ordere d By: Megan Beebe on 09-10-2024 RBC (Bld) [#/Vol] 3.72 10*6/uL Low 4.2-5.4 [facility] Serum anion gap measurementO rdered By: Megan Beebe on 09-10-2024 Anion gap [Moles/Vol] 5 mmol/L 5-15 [facility] Serum or plasma calcium reyna urement (mass/volume)Ordered By: Megan Beebe on 09-10-2024 Calcium [Mass/Vol] 9.0 mg/dL 8.5-10.1 [facility] Serum or plasma creatinine m easurement (mass/volume)Ordered By: Megan Beebe on 09-10-2024 Creatinine [Mass/Vol] 1.23 mg/dL High 0.55-1.02 [facility] Comment on above: The validity of the calculated GFR & GFRAA in patients over 70 years has not been determined. Clinical correlation is essential. Serum or plasma urea nitroge n measurement (mass/volume)Ordered By: Megan Beebe on 09-10-2024 Urea nitrogen [Mass/Vol] 22 mg/dL High 7-18 [facility] Sodium levelOrdered By: Juan C Beebe on 09-10-2024 Sodium [Moles/Vol] 137 mmol/L 136-145 [facility] White blood cell (WBC) count Ordered By: Megan Beebe on 09-10-2024 WBC (Bld) [#/Vol] 7.7 10*3/uL 4.4-11.0 [facility] Urine Cultureon 09-06-2024 URC UNKNOWN METHOD OF COLLECTION Proteus mirabilis [place] Count 50,000-80,000 Klebsiella pneumoniae sp pneum Klebsiella [...] TMP SMX Islt AGATA <=20 S Normal [facility] Comment on above: Performed By: #### L 9200.0000 #### [facility] [address] [place], [address] Urinalysis, Completeon 09-04 BACTERIA 4+ /hpf Normal None Seen [facility] Comment on above: Order Comment: UNKNO WN METHOD OF COLLECTIONCLEAN CATCH Performed By: #### L 9200.0000 #### [facility] [address] [place], [address] EPI,SQUAMOUS 10-25 SEEN Normal 5-10 [facility] Comment on above: Order Comment: UNKNO WN METHOD OF COLLECTIONCLEAN CATCH Performed By: #### L 9200.0000 #### [facility] [address] [place], [address] Mucus Ql (Urine sed) 1+ /hpf Normal [facility] Comment on above: Order Comment: UNKNO WN METHOD OF COLLECTIONCLEAN CATCH Performed By: #### L 9200.0000 #### [facility] [address] [place], [address] RBC 5-10 SEEN Normal 0-5 [facility] Comment on above: Order Comment: UNKNO WN METHOD OF COLLECTIONCLEAN CATCH Performed By: #### L 9200.0000 #### [facility] [address] [place], [address] WBC 50-100 SEEN Normal 0-5 [facility] Comment on above: Order Comment: UNKNO WN METHOD OF COLLECTIONCLEAN CATCH Performed By: #### L 9200.0000 #### [facility] [address] [place], [address] Basic Metabolic Profile (BMP )on 09-03-2024 BUN/CRE 20.7 RATIO High 10-20 [facility] Comment on above: Order Comment: 104-1 Performed By: #### L 9200.0000 #### [facility] [address] [place], [address] CA,Total 9.4 mg/dL Normal 8.5-10.1 [facility] Comment on above: Order Comment: 104-1 Performed By: #### L 9200.0000 #### [facility] [address] [place], [address] Chloride [Moles/Vol] 109 mmol/L High 98-107 [facility] Comment on above: Order Comment: 104-1 Performed By: #### L 9200.0000 #### [facility] [address] [place], [address] CO2 [Moles/Vol] 21.0 mmol/L Normal 21.0-32.0 [facility] Comment on above: Order Comment: 104-1 Performed By: #### L 9200.0000 #### [facility] [address] [place], [address] Creatinine [Mass/Vol] 0.92 mg/dL Normal 0.55-1.02 [facility] Comment on above: Order Comment: 104-1 Result Comment: The validity of the calculated GFR GFRAA in patients over 70 years has not been determined. Clinical correlation is essential. Performed By: #### L 9200.0000 #### [facility] [address] [place], [address] EST GFR - AA 75 mL/min Normal >60 [facility] Comment on above: Order Comment: 104-1 Result Comment: Afri can Andorran GFR Calc Performed By: #### L 9200.0000 #### [facility] [address] [place], [address] GAP 9 Normal 5-15 [facility] Comment on above: Order Comment: 104-1 Performed By: #### L 9200.0000 #### [facility] [address] [place], [address] GFR/1.73 sq M.predicted among non-blacks MDRD (S/P/Bld) [Vol rate/Area] 62 mL/min/{1.73_m2} Normal >60 [facility] Comment on above: Order Comment: 104- Result Comment: Non- GFR Calc Performed By: #### L 9200.0000 #### [facility] [address] [place], [address] Glucose [Mass/Vol] 115 mg/dL High 74-106 [facility] Comment on above: Order Comment: 104- Result Comment: Fast ing Glucose result from 100 to 125 mg/dL suggests IMPAIRED HOMEOSTASIS per A.D.A. criteria. Performed By: #### L 9200.0000 #### [facility] [address] [place], [address] Potassium [Moles/Vol] 4.4 mmol/L Normal 3.5-5.1 [facility] Comment on above: Order Comment: 104- Performed By: #### L 9200.0000 #### [facility] [address] [place], [address] Sodium [Moles/Vol] 139 mmol/L Normal 136-145 [facility] Comment on above: Order Comment: 104- Performed By: #### L 9200.0000 #### [facility] [address] [place], [address] Urea nitrogen [Mass/Vol] 19 mg/dL High 7-18 [facility] Comment on above: Order Comment: 104-1 Performed By: #### L 9200.0000 #### [facility] [address] [place], [address] Bilirubin Test strip Ql (U)O rdered By: Megan Beebe on 09-03-2024 Bilirubin Ql (U) Negative Negative [facility] Blood urea nitrogen (BUN)/cr eatinine ratioOrdered By: eMgan Beebe on 09-03-2024 Urea nitrogen/Creatinine [Mass ratio] 20.7 mg/mg High 10-20 [facility] CBC-Complete Blood Cnt No Di ffon 09-03-2024 Erythrocyte distribution width (RBC) [Ratio] 17.9 % High 11.6-14.6 [facility] Comment on above: Order Comment: 104-1 Performed By: #### L 9200.0000 #### [facility] [address] [place], [address] Hematocrit (Bld) [Volume fraction] 30.8 % Low 37-47 [facility] Comment on above: Order Comment: 104-1 Performed By: #### L 9200.0000 #### [facility] [address] [place], [address] Hemoglobin (Bld) [Mass/Vol] 9.5 g/dL Low 12.0-15.0 [facility] Comment on above: Order Comment: 104-1 Performed By: #### L 9200.0000 #### [facility] [address] [place], [address] MCH (RBC) [Entitic mass] 25.7 pg Low 27.0-32.0 [facility] Comment on above: Order Comment: 104-1 Performed By: #### L 9200.0000 #### [facility] [address] [place], [address] MCHC (RBC) [Mass/Vol] 30.8 g/dL Low 32-36 [facility] Comment on above: Order Comment: 104-1 Performed By: #### L 9200.0000 #### [facility] [address] [place], [address] MCV (RBC) [Entitic vol] 83.5 fL Normal 81-99 [facility] Comment on above: Order Comment: 104-1 Performed By: #### L 9200.0000 #### [facility] [address] [place], [address] Platelet mean volume (Bld) [Entitic vol] 10.2 fL Normal 6.2-12.0 [facility] Comment on above: Order Comment: 104-1 Performed By: #### L 9200.0000 #### [facility] [address] [place], [address] Platelets (Bld) [#/Vol] 431 10*3/uL Normal 150-450 [facility] Comment on above: Order Comment: 104-1 Performed By: #### L 9200.0000 #### [facility] [address] [place], [address] RBC (Bld) [#/Vol] 3.69 10*6/uL Low 4.2-5.4 [facility] Comment on above: Order Comment: 104-1 Performed By: #### L 9200.0000 #### [facility] [address] [place], [address] RDW SD 54.3 fl High 35.1-43.9 [facility] Comment on above: Order Comment: 104-1 Performed By: #### L 9200.0000 #### [facility] [address] [place], [address] WBC (Bld) [#/Vol] 10.6 10*3/uL Normal 4.4-11.0 [facility] Comment on above: Order Comment: 104-1 Performed By: #### L 9200.0000 #### [facility] [address] [place], [address] Carbon dioxide measurementOr dered By: Megan Beebe on 09-03-2024 CO2 [Moles/Vol] 21.0 mmol/L 21.0-32.0 [facility] Chloride measurementOrdered By: Megan Beebe on 09-03-2024 Chloride [Moles/Vol] 109 mmol/L High 98-107 [facility] Epithelial cells.squamous LM Ql (Urine sed)Ordered By: Megan Beebe on 09-03-2024 Epithelial cells.squamous LM.HPF (Urine sed) [#/Area] 10 /[HPF] 5-10 [facility] Erythrocyte distribution wid th ratioOrdered By: Megan Beebe on 09-03-2024 Erythrocyte distribution width (RBC) [Ratio] 17.9 % High 11.6-14.6 [facility] Erythrocyte distribution wid th standard deviationOrdered By: Megan Beebe on 09-03-2024 Erythrocyte distribution width (RBC) [Entitic vol] 54.3 fL High 35.1-43.9 [facility] Estimated glomerular filtrat ion rate (GFR) AmericanOrdered By: Megan Beebe on 09-03-2024 Estimated GFR (MDRD) Amer 75 mL/min >60 [facility] Comment on above: GFR Calc Glomerular filtration rate ( GFR) estimationOrdered By: Megan Beebe on 09-03-2024 Estimated GFR (MDRD) Non-Af Amer 62 mL/min >60 [facility] Comment on above: Non- GFR Calc Glucose Ql (U)Ordered By: Johnathan Guzman on 09-03-2024 Urine Glucose (UA) Normal mg/dl Normal [facility] Glucose measurementOrdered B y: Megan Beebe on 09-03-2024 Glucose [Mass/Vol] 115 mg/dL High 74-106 [facility] Comment on above: Fasting Glucose resu lt from 100 to 125 mg/dL suggests IMPAIRED HOMEOSTASIS per A.D.A. criteria. Hematocrit Auto (Bld) [Volum e fraction]Ordered By: Megan Beebe on 09-03-2024 Hematocrit (Bld) [Volume fraction] 30.8 % Low 37-47 [facility] Hemoglobin measurementOrdere d By: Megan Beebe on 09-03-2024 Hemoglobin (Bld) [Mass/Vol] 9.5 g/dL Low 12.0-15.0 [facility] Ketones Test strip Ql (U)Ord ered By: Megan Beebe on 09-03-2024 Ketones Ql (U) 5 mg/dl High Negative [facility] MCV (mean corpuscular volume ) determinationOrdered By: Megan Beebe on 09-03-2024 MCV (RBC) [Entitic vol] 83.5 fL 81-99 [facility] Mean corpuscular hemoglobin (MCH) determinationOrdered By: Megan Beebe on 09-03-2024 MCH (RBC) [Entitic mass] 25.7 pg Low 27.0-32.0 [facility] Mean corpuscular hemoglobin concentration (MCHC) determinationOrdered By: Megan Beebe on 09-03-2024 MCHC (RBC) [Mass/Vol] 30.8 g/dL Low 32-36 [facility] Mean platelet volume determi nationOrdered By: Megan Beebe on 09-03-2024 Platelet mean volume (Bld) [Entitic vol] 10.2 fL 6.2-12.0 [facility] Microscopic analysis of urin e for red blood cells (RBC)Ordered By: Megan Beebe on 09-03-2024 Urine RBC 5-10 SEEN /hpf 0-5 [facility] Mucus LM Ql (Urine sed)Order ed By: Megan Beebe on 09-03-2024 Mucus Ql (Urine sed) 1+ /hpf [facility] Nitrite Test strip Ql (U)Ord ered By: Megan Beebe on 09-03-2024 Nitrite Ql (U) Positive High Negative [facility] Platelet countOrdered By: Johnathan Guzman on 09-03-2024 Platelets (Bld) [#/Vol] 431 10*3/uL 150-450 [facility] Potassium measurementOrdered By: Megan Beebe on 09-03-2024 Potassium [Moles/Vol] 4.4 mmol/L 3.5-5.1 [facility] Protein Test strip Ql (U)Ord ered By: Megan Beebe on 09-03-2024 Protein Ql (U) 100 mg/dl High Negative [facility] RBC Auto (Bld) [#/Vol]Ordere d By: Megan Beebe on 09-03-2024 RBC (Bld) [#/Vol] 3.69 10*6/uL Low 4.2-5.4 [facility] Serum anion gap measurementO rdered By: Megan Beebe on 09-03-2024 Anion gap [Moles/Vol] 9 mmol/L 5-15 [facility] Serum or plasma calcium reyna urement (mass/volume)Ordered By: Megan Beebe on 09-03-2024 Calcium [Mass/Vol] 9.4 mg/dL 8.5-10.1 [facility] Serum or plasma creatinine m easurement (mass/volume)Ordered By: Megan Beebe on 09-03-2024 Creatinine [Mass/Vol] 0.92 mg/dL 0.55-1.02 [facility] Comment on above: The validity of the calculated GFR & GFRAA in patients over 70 years has not been determined. Clinical correlation is essential. Serum or plasma urea nitroge n measurement (mass/volume)Ordered By: Megan Beebe on 09-03-2024 Urea nitrogen [Mass/Vol] 19 mg/dL High 7-18 [facility] Sodium levelOrdered By: Juan C Beebe on 09-03-2024 Sodium [Moles/Vol] 139 mmol/L 136-145 [facility] Urine blood detectionOrdered By: Megan Beebe on 09-03-2024 Urine Occult Blood 150 /ul High Negative [facility] Urine clarityOrdered By: Pola Beebe on 09-03-2024 Clarity (U) Cloudy Clear [facility] Urine color determinationOrd ered By: Megan Beebe on 09-03-2024 Color (U) Yellow Yellow [facility] Urine cultureOrdered By: Pola Beebe on 09-03-2024 Bacteria identified Cx Nom (U) Proteus mirabilis Abnormal [facility] Bacteria identified Cx Nom (U) Klebsiella pneumoniae sp pneum Abnormal [facility] Bacteria identified Cx Nom (U) Proteus mirabilis Abnormal [facility] Bacteria identified Cx Nom (U) Klebsiella pneumoniae sp pneum Abnormal [facility] Urine leukocyte esterase det ection by dipstickOrdered By: Megan Beebe on 09-03-2024 Leukocyte esterase Test strip Ql (U) 500 /ul High Negative [facility] Urine pHOrdered By: Megan jimenez on 09-03-2024 pH (U) 6.0 [pH] 5.0 - 8.0 [facility] Urine sediment bacteria coun t by microscopy (number/high power field)Ordered By: Megan Beebe on 09-03-2024 Bacteria LM.HPF (Urine sed) [#/Area] 4 /[HPF] None Seen [facility] Urine specific gravity measu rementOrdered By: Megan Beebe on 09-03-2024 Specific gravity (U) [Rel density] 1.020 1.002-1.030 [facility] Urobilinogen Ql (U)Ordered B y: Megan Beebe on 09-03-2024 Urine Urobilinogen Normal mg/dl Normal [facility] White blood cell (WBC) count Ordered By: Megan Beebe on 09-03-2024 WBC (Bld) [#/Vol] 10.6 10*3/uL 4.4-11.0 [facility] White blood cell countOrdere d By: Megan Beebe on 09-03-2024 Urine WBC 50-100 SEEN /hpf 0-5 [facility] [id number] 08-27-2024 [id number] Patient Choice Patient Name: MEL POP Date of : 1940 Normal [facility] Progress Noteon 08-22-2024 Progress Note Normal [facility] Albumin to globulin ratioOrd ered By: Megan Beebe on 08-20-2024 Albumin/Globulin [Mass ratio] 0.7 {ratio} Low 0.9-2.4 [facility] Bilirubin, totalOrdered By: Megan Beebe on 08-20-2024 Bilirubin [Mass/Vol] 0.60 mg/dL 0.20-1.00 [facility] Comment on above: For patients on eltr ombopag therapy, use of Dimension [place] TBIL is not recommended. Blood urea nitrogen (BUN)/cr eatinine ratioOrdered By: Megan Beebe on 08-20-2024 Urea nitrogen/Creatinine [Mass ratio] 11.2 mg/mg 10-20 [facility] CBC-Complete Blood Cnt No Di ffon 08-20-2024 Erythrocyte distribution width (RBC) [Ratio] 19.2 % High 11.6-14.6 [facility] Comment on above: Performed By: #### L 100.0500, L500.4050 #### [facility] [address] [place], [place], [id number] Hematocrit (Bld) [Volume fraction] 33.4 % Low 37-47 [facility] Comment on above: Performed By: #### L 100.0500, L500.4050 #### [facility] [address] [place], [address] Hemoglobin (Bld) [Mass/Vol] 10.4 g/dL Low 12.0-15.0 [facility] Comment on above: Performed By: #### L 100.0500, L500.4050 #### [facility] [address] [place], [address] MCH (RBC) [Entitic mass] 26.3 pg Low 27.0-32.0 [facility] Comment on above: Performed By: #### L 100.0500, [id number] #### [facility] [address] [place], [address] MCHC (RBC) [Mass/Vol] 31.1 g/dL Low 32-36 [facility] Comment on above: Performed By: #### L 100.0500, [id number] #### [facility] [address] [place], [address] MCV (RBC) [Entitic vol] 84.6 fL Normal 81-99 [facility] Comment on above: Performed By: #### L 100.0500, [id number] #### [facility] [address] [place], [address] Platelet mean volume (Bld) [Entitic vol] 9.7 fL Normal 6.2-12.0 [facility] Comment on above: Performed By: #### L 100.0500, [id number] #### [facility] [address] [place], [address] Platelets (Bld) [#/Vol] 405 10*3/uL Normal 150-450 [facility] Comment on above: Performed By: #### L 100.0500, [id number] #### [facility] [address] [place], [address] RBC (Bld) [#/Vol] 3.95 10*6/uL Low 4.2-5.4 [facility] Comment on above: Performed By: #### L 100.0500, [id number] #### [facility] [address] [place], [address] RDW SD 58.9 fl High 35.1-43.9 [facility] Comment on above: Performed By: #### L 100.0500, [id number] #### [facility] [address] [place], [address] WBC (Bld) [#/Vol] 5.9 10*3/uL Normal 4.4-11.0 [facility] Comment on above: Performed By: #### L 100.0500, [id number] #### [facility] [address] [place], [address] Carbon dioxide measurementOr dered By: Megan Beebe on 08-20-2024 CO2 [Moles/Vol] 22.0 mmol/L 21.0-32.0 [facility] Chloride measurementOrdered By: Megan Beebe on 08-20-2024 Chloride [Moles/Vol] 109 mmol/L High 98-107 [facility] Comprehensive Metabolic Prof ilon 08-20-2024 Albumin [Mass/Vol] 2.7 g/dL Low 3.2-5.0 [facility] Comment on above: Performed By: #### L 100.0500, [id number] #### [facility] [address] [place], [address] Albumin/Globulin [Mass ratio] 0.7 {ratio} Low 0.9-2.4 [facility] Comment on above: Performed By: #### L 100.0500, [id number] #### [facility] [address] [place], [address] ALK P 117 U/L Normal 45-117 [facility] Comment on above: Performed By: #### L 100.0500, [id number] #### [facility] [address] [place], [address] ALT [Catalytic activity/Vol] 18 U/L Normal 13-56 [facility] Comment on above: Performed By: #### L 100.0500, [id number] #### [facility] [address] [place], [address] AST [Catalytic activity/Vol] 18 U/L Normal 15-37 [facility] Comment on above: Result Comment: Slig ht Hemolysis, Result may be falsely increased. Performed By: #### L 100.0500, L500.4050 #### [facility] [address] [place], [address] Bilirubin [Mass/Vol] 0.60 mg/dL Normal 0.20-1.00 [facility] Comment on above: Result Comment: For patients on eltrombopag therapy, use of Dimension [place] TBIL is not recommended. Performed By: #### L 100.0500, [id number] #### [facility] [address] [place], [address] BUN/CRE 11.2 RATIO Normal 10-20 [facility] Comment on above: Performed By: #### L 100.0500, [id number] #### [facility] [address] [place], [address] CA,Total 9.0 mg/dL Normal 8.5-10.1 [facility] Comment on above: Performed By: #### L 100.0500, [id number] #### [facility] [address] [place], [address] Chloride [Moles/Vol] 109 mmol/L High 98-107 [facility] Comment on above: Performed By: #### L 100.0500, [id number] #### [facility] [address] [place], [address] CO2 [Moles/Vol] 22.0 mmol/L Normal 21.0-32.0 [facility] Comment on above: Performed By: #### L 100.0500, [id number] #### [facility] [address] [place], [address] Creatinine [Mass/Vol] 0.98 mg/dL Normal 0.55-1.02 [facility] Comment on above: Result Comment: The validity of the calculated GFR GFRAA in patients over 70 years has not been determined. Clinical correlation is essential. Performed By: #### L 100.0500, L500.4050 #### [facility] [address] [place], [address] EST GFR - AA 69 mL/min Normal >60 [facility] Comment on above: Result Comment: Afri can [place]ran GFR Calc Performed By: #### L 100.0500, [id number] #### [facility] [address] [place], [address] GAP 7 Normal 5-15 [facility] Comment on above: Performed By: #### L 100.0500, [id number] #### [facility] [address] [place], [address] GFR/1.73 sq M.predicted among non-blacks MDRD (S/P/Bld) [Vol rate/Area] 57 mL/min/{1.73_m2} Low >60 [facility] Comment on above: Result Comment: Non- GFR Calc Performed By: #### L 100.0500, [id number] #### [facility] [address] [place], [address] Globulin (S) [Mass/Vol] 4.1 g/dL Normal 2.2-4.2 [facility] Comment on above: Performed By: #### L 100.0500, [id number] #### [facility] [address] [place], [address] Glucose [Mass/Vol] 97 mg/dL Normal 74-106 [facility] Comment on above: Performed By: #### L 100.0500, [id number] #### [facility] [address] [place], [address] Potassium [Moles/Vol] 4.2 mmol/L Normal 3.5-5.1 [facility] Comment on above: Result Comment: Slig ht Hemolysis, Result may be falsely increased. Performed By: #### L 100.0500, [id number] #### [facility] [address] [place], [address] Sodium [Moles/Vol] 138 mmol/L Normal 136-145 [facility] Comment on above: Performed By: #### L 100.0500, [id number] #### [facility] [address] [place], [address] T PROT 6.8 g/dL Normal 6.4-8.2 [facility] Comment on above: Performed By: #### L 100.0500, [id number] #### [facility] [address] [place], [address] Urea nitrogen [Mass/Vol] 11 mg/dL Normal 7-18 [facility] Comment on above: Performed By: #### L 100.0500, [id number] #### [facility] [address] [place], [address] Erythrocyte distribution wid th ratioOrdered By: Megan Beebe on 08-20-2024 Erythrocyte distribution width (RBC) [Ratio] 19.2 % High 11.6-14.6 [facility] Erythrocyte distribution wid th standard deviationOrdered By: Megan Beebe on 08-20-2024 Erythrocyte distribution width (RBC) [Entitic vol] 58.9 fL High 35.1-43.9 [facility] Estimated glomerular filtrat ion rate (GFR) AmericanOrdered By: Megan Beebe on 08-20-2024 Estimated GFR (MDRD) Amer 69 mL/min >60 [facility] Comment on above: GFR Calc Glomerular filtration rate ( GFR) estimationOrdered By: Megan Beebe on 08-20-2024 Estimated GFR (MDRD) Non-Af Amer 57 mL/min Low >60 [facility] Comment on above: Non- GFR Calc Glucose measurementOrdered B y: Megan Beebe on 08-20-2024 Glucose [Mass/Vol] 97 mg/dL 74-106 [facility] Hematocrit Auto (Bld) [Volum e fraction]Ordered By: Megan Beebe on 08-20-2024 Hematocrit (Bld) [Volume fraction] 33.4 % Low 37-47 [facility] Hemoglobin measurementOrdere d By: Megan Beebe on 08-20-2024 Hemoglobin (Bld) [Mass/Vol] 10.4 g/dL Low 12.0-15.0 [facility] - Chemistry and C hemistry - challengeOrdered By: Megan Beebe on 08-20-2024 AST [Catalytic activity/Vol] 18 U/L 15-37 [facility] Comment on above: Slight Hemolysis, Re sult may be falsely increased. MCV (mean corpuscular volume ) determinationOrdered By: Megan Beebe on 08-20-2024 MCV (RBC) [Entitic vol] 84.6 fL 81-99 [facility] Mean corpuscular hemoglobin (MCH) determinationOrdered By: Megan Beebe on 08-20-2024 MCH (RBC) [Entitic mass] 26.3 pg Low 27.0-32.0 [facility] Mean corpuscular hemoglobin concentration (MCHC) determinationOrdered By: Megan Beebe on 08-20-2024 MCHC (RBC) [Mass/Vol] 31.1 g/dL Low 32-36 [facility] Mean platelet volume determi nationOrdered By: Megan Beebe on 08-20-2024 Platelet mean volume (Bld) [Entitic vol] 9.7 fL 6.2-12.0 [facility] Platelet countOrdered By: Johnathan Guzman on 08-20-2024 Platelets (Bld) [#/Vol] 405 10*3/uL 150-450 [facility] Potassium measurementOrdered By: Megan Beebe on 08-20-2024 Potassium [Moles/Vol] 4.2 mmol/L 3.5-5.1 [facility] Comment on above: Slight Hemolysis, Re sult may be falsely increased. RBC Auto (Bld) [#/Vol]Ordere d By: Megan Beebe on 08-20-2024 RBC (Bld) [#/Vol] 3.95 10*6/uL Low 4.2-5.4 [facility] Serum anion gap measurementO rdered By: Megan Beebe on 08-20-2024 Anion gap [Moles/Vol] 7 mmol/L 5-15 [facility] Serum globulin measurementOr dered By: Megan Beebe on 08-20-2024 Globulin (S) [Mass/Vol] 4.1 g/dL 2.2-4.2 [facility] Serum or plasma alanine hinojosa otransferase (ALT) measurementOrdered By: Megan Beebe on 08-20-2024 ALT [Catalytic activity/Vol] 18 U/L 13-56 [facility] Serum or plasma albumin reyna urement (mass/volume)Ordered By: Megan Beebe on 08-20-2024 Albumin [Mass/Vol] 2.7 g/dL Low 3.2-5.0 [facility] Serum or plasma alkaline silvia sphatase measurementOrdered By: Megan Beebe on 08-20-2024 ALP [Catalytic activity/Vol] 117 U/L 45-117 [facility] Serum or plasma calcium reyna urement (mass/volume)Ordered By: Megan Beebe on 08-20-2024 Calcium [Mass/Vol] 9.0 mg/dL 8.5-10.1 [facility] Serum or plasma creatinine m easurement (mass/volume)Ordered By: Megan Beebe on 08-20-2024 Creatinine [Mass/Vol] 0.98 mg/dL 0.55-1.02 [facility] Comment on above: The validity of the calculated GFR & GFRAA in patients over 70 years has not been determined. Clinical correlation is essential. Serum or plasma urea nitroge n measurement (mass/volume)Ordered By: Megan Beebe on 08-20-2024 Urea nitrogen [Mass/Vol] 11 mg/dL 7-18 [facility] Sodium levelOrdered By: Juan C Beebe on 08-20-2024 Sodium [Moles/Vol] 138 mmol/L 136-145 [facility] Total proteinOrdered By: Pola Beebe on 08-20-2024 Protein [Mass/Vol] 6.8 g/dL 6.4-8.2 [facility] White blood cell (WBC) count Ordered By: Megan Beebe on 08-20-2024 WBC (Bld) [#/Vol] 5.9 10*3/uL 4.4-11.0 [facility] [id number] 08-16-2024 [id number] Normal [facility] [id number] [facility] [id number] MAR & Discharge med list transmitted to [facility] via [employer] per TCC request. Electronically signed by JESSICA Leone Normal [facility] [id number] Normal [facility] Laboratory - Chemistry and C hemistry - challengeon 08-16-2024 Glucose [Mass/Vol] 120 mg/dL High 70 - 100 mg/dL [facility] No Panel Informationon 08-16 Interpretation and review of laboratory results Abnormal [facility] Performed by: [facility], [address] [place] [address] CLIA ID: [id number] [facility] Nursing Noteon 08-16-2024 Nursing Note Patient picked up fo r transfer to [facility] by stretcher. Report already called to GENET Garcia. Normal [facility] Nursing Note Telephone report erin led to GENET Garcia at [facility]. Normal [facility] Progress Noteon 08-16-2024 Progress Note Normal [facility] 30on 08-15-2024 30 Normal [facility] [id number] 08-15-2024 [id number] Authorization is pending with [facility]. Ref# [id number] to be DC'd to [facility]. Dtr Fidel Sharma. CM to follow. Normal [facility] Progress Noteon 08-15-2024 Progress Note Normal [facility] 30on 08-14-2024 30 Normal [facility] [id number] 08-14-2024 [id number] Normal [facility] Progress Noteon 08-14-2024 Progress Note Normal [facility] Progress Note Normal [facility] Progress Note Normal [facility] 30on 08-13-2024 30 Normal [facility] 30 Normal [facility] [id number] 08-13-2024 [id number] Normal [facility] Progress Noteon 08-13-2024 Progress Note Normal [facility] Progress Note Normal [facility] 30on 08-12-2024 30 Normal [facility] Progress Noteon 08-12-2024 Progress Note Normal [facility] 30on 08-11-2024 30 Normal [facility] 30 Normal [facility] [id number] 08-11-2024 [id number] CM noted DC orders i n place, Dgt touring facilities over the weekend. [facility] pending acceptance, updates sent via [employer]. Normal [facility] Progress Noteon 08-11-2024 Progress Note Normal [facility] 30on 08-10-2024 30 Normal [facility] [id number] 08-10-2024 [id number] Normal [facility] Progress Noteon 08-10-2024 Progress Note Normal [facility] [id number] 08-09-2024 [id number] Normal [facility] [id number] Normal [facility] [id number] Updated PT/OT notes placed to [facility] via [employer] per TCC request. Await review and response regarding ability to accept. TCC notified. Electronically signed by [employer] CODER Aracelis Gardiner [facility] [phone] Patient is medically ready for dc. PT/OT both continuing to recommend SNF. [facility] wind project manager asked to start auth. Plan to dc back to [facility] pending auth [facility] Progress Noteon 08-09-2024 Progress Note Normal [facility] [id number] 08-08-2024 [id number] [facility] Progress Noteon 08-08-2024 Progress Note Normal [facility] Progress Note Normal [facility] Progress Note Normal [facility] 30on 08-07-2024 30 [facility] 30 Normal [facility] 30 Normal [facility] [id number] 08-07-2024 [id number] [facility] Progress Noteon 08-07-2024 Progress Note Normal [facility] 30on 08-06-2024 30 [facility] 30 [facility] [id number] 08-06-2024 [id number] Pt cont's on IV AtBs '. Plan is for pt to return to [facility]. Auth and HECTOR needed prior to DC. CM to follow. [facility] [id number] [facility] Comprehensive metabolic 1998 panelon 08-06-2024 Albumin [Mass/Vol] [facility]24 Consult Normal [facility] Progress Noteon 08-06-2024 Progress Note Normal [facility] Progress Note Normal [facility] 30on 08-05-2024 30 Normal [facility] CBC W Auto Differential pane l [...] 0.1 10*3/uL High NINF - 0.1 10*3/uL [facility] Immature granulocytes/100 WBC (Bld) 0.7 % [...] [facility] MCHC (RBC) [Mass/Vol] 30.9 % 30.5 - 36.0 % [facility] MCV (RBC) [Entitic vol] 84.1 fL 77.0 - 99.0 fL [facility] Monocytes (Bld) [#/Vol] 0.7 10*3/uL 0.0 - 0.9 10*3/uL [facility] Monocytes/100 WBC (Bld) 9.9 % 5.0 - 13.0 % [facility] Neutrophils (Bld) [#/Vol] 5.3 10*3/uL 1.8 - 7.5 10*3/uL [facility] Neutrophils/100 WBC (Bld) 71.9 % 38.0 - 82.0 % [facility] Nucleated RBC/100 WBC (Bld) [Ratio] 0 % [facility] Platelet mean volume (Bld) [Entitic vol] 9.2 fL 9.0 - 12.7 fL [facility] Platelets (Bld) [#/Vol] 235 10*3/uL 140 - 440 10*3/uL [facility] RBC (Bld) [#/Vol] 3.96 10*6/uL 3.80 - 5.2 0 10*6/uL [facility] WBC (Bld) [#/Vol] 7.3 10*3/uL 3.6 - 10.7 10*3/uL [facility] CBC W Auto Differential pane l (Bld)Ordered By: Aden Baires on 08-05-2024 Basophils (Bld) [#/Vol] 0 10*3/uL 0.0 - 0.2 10*3/uL [facility] Basophils/100 WBC (Bld) 0.3 % 0.0 - 2.0 % [facility] Eosinophils (Bld) [#/Vol] 0.1 10*3/uL 0.0 - 0.5 10*3/uL [facility] Eosinophils/100 WBC (Bld) 1.5 % 0.0 - 6.0 % [facility] Erythrocyte distribution width (RBC) [Ratio] 19.2 % High 11.5 - 15.0 % [facility] Hematocrit (Bld) [Volume fraction] 31.9 % Low 35.0 - 47.0 % [facility] Hemoglobin (Bld) [Mass/Vol] 9.9 g/dL Low 11.7 - 16.0 g/dL [facility] Immature granulocytes (Bld) [#/Vol] 0 10*3/uL NINF - 0.1 10*3/uL [facility] Immature granulocytes/100 WBC (Bld) 0.5 % 0.0 - 2.0 % [facility] Interpretation and review of laboratory results Abnormal [facility] Lymphocytes (Bld) [#/Vol] 1.1 10*3/uL 1.0 - 4.3 10*3/uL [facility] Lymphocytes/100 WBC (Bld) 16.6 % 15.0 [...] Basophils (Bld) [#/Vol] 0.0 10*3/uL Normal 0.0-0.2 [facility] Comment on above: Performed By: #### L [id number] ####Senior Vice President & General Counsel: VELMA VALADEZ ([phone])[address] Basophils/100 WBC (Bld) 0.3 % Normal 0.0-2.0 [facility] Comment on above: Performed By: #### L [id number] ####Senior Vice President & General Counsel: VELMA VALADEZ ([phone])[facility] ([facility])[address] [place] [address] Eosinophils (Bld) [#/Vol] 0.1 10*3/uL Normal 0.0-0.5 [facility] Comment on above: Performed By: #### L [id number] ####Senior Vice President & General Counsel: VELMA VALADEZ ([phone])[facility])[address] [place] [address] Eosinophils/100 WBC (Bld) 1.6 % Normal 0.0-6.0 [facility] Comment on above: Performed By: #### L [id number] ####Senior Vice President & General Counsel: VELMA VALADEZ ([phone])[address] Erythrocyte distribution width (RBC) [Ratio] 18.9 % High 11.5-15.0 [facility] Comment on above: Performed By: #### L [id number] ####Senior Vice President & General Counsel: VELMA VALADEZ ([phone])[address] Hematocrit (Bld) [Volume fraction] 33.3 % Low 35.0-47.0 [facility] Comment on above: Performed By: #### L [id number] ####Senior Vice President & General Counsel: VELMA VALADEZ ([phone])[address] Hemoglobin (Bld) [Mass/Vol] 10.3 g/dL Low 11.7-16.0 [facility] Comment on above: Performed By: #### L [id number] ####Senior Vice President & General Counsel: VELMA VALADEZ ([phone])[address] IMMATURE GRANS % 0.7 % Normal 0.0-2.0 [facility] Comment on above: Performed By: #### L [id number] ####Senior Vice President & General Counsel: VELMA VALADEZ ([phone])[address] IMMATURE GRANS ABSOLUTE 0.1 10*3/uL High <0.1 [facility] Comment on above: Performed By: #### L [id number] ####Senior Vice President & General Counsel: VELMA VALADEZ ([phone])[address] Lymphocytes (Bld) [#/Vol] 1.1 10*3/uL Normal 1.0-4.3 [facility] Comment on above: Performed By: #### L [id number] ####Senior Vice President & General Counsel: VELMA VALADEZ ([phone])[facility] ([facility])[address] [place] [address] Lymphocytes/100 WBC (Bld) 15.6 % Normal 15.0-45.0 [facility] Comment on above: Performed By: #### L [id number] ####Senior Vice President & General Counsel: VELMA VALADEZ ([phone])[facility] ([facility])[address] [place] [address] MCH (RBC) [Entitic mass] 26.0 pg Normal 26.0-34.0 [facility] Comment on above: Performed By: #### L [id number] ####Senior Vice President & General Counsel: VELMA VALADEZ ([phone])[facility])[address] [place] [address] MCHC 30.9 % Normal 30.5-36.0 [facility] Comment on above: Performed By: #### L [id number] ####Senior Vice President & General Counsel: VELMA VALADEZ ([phone])[facility] ([facility])[address] [place] [address] MCV (RBC) [Entitic vol] 84.1 fL Normal 77.0-99.0 [facility] Comment on above: Performed By: #### L [id number] ####Senior Vice President & General Counsel: VELMA VALADEZ ([phone])[facility])[address] [place] [address] Monocytes (Bld) [#/Vol] 0.7 10*3/uL Normal 0.0-0.9 [facility] Comment on above: Performed By: #### L [id number] ####Senior Vice President & General Counsel: VELMA VALADEZ ([phone])[facility])[address] [place] [address] Monocytes/100 WBC (Bld) 9.9 % Normal 5.0-13.0 [facility] Comment on above: Performed By: #### L [id number] ####Senior Vice President & General Counsel: VELMA VALADEZ ([phone])[facility])[address] [place] [address] NEUTROPHILS ABSOLUTE 5.3 10*3/uL Normal 1.8-7.5 [facility] Comment on above: Performed By: #### L [id number] ####Senior Vice President & General Counsel: VELMA VALADEZ ([phone])[facility] ([facility])[address] [place] [address] Neutrophils/100 WBC (Bld) 71.9 % Normal 38.0-82.0 [facility] Comment on above: Performed By: #### L [id number] ####Senior Vice President & General Counsel: VELMA VALADEZ ([phone])[facility] ([facility])[address] [place] [address] NRBC 0.0 /100 WBCs Normal 0.0-2.0 [facility] Comment on above: Performed By: #### L [id number] ####Senior Vice President & General Counsel: VELMA VALADEZ ([phone])[facility] ([facility])[address] [place] [address] Platelet mean volume (Bld) [Entitic vol] 9.2 fL Normal 9.0-12.7 [facility] Comment on above: Performed By: #### L [id number] ####Senior Vice President & General Counsel: VELMA VALADEZ ([phone])[facility] ([facility])[address] [place] [address] Platelets (Bld) [#/Vol] 235 10*3/uL Normal 140-440 [facility] Comment on above: Performed By: #### L [id number] ####Senior Vice President & General Counsel: VELMA VALADEZ ([phone])[facility] ([facility])[address] [place] [address] [place] RBC (Bld) [#/Vol] 3.96 10*6/uL Normal 3.80-5.20 [facility] Comment on above: Performed By: #### L [id number] ####Senior Vice President & General Counsel: VELMA VALADEZ ([phone])[facility] ([facility])[address] [place] [address] [place] WBC (Bld) [#/Vol] 7.3 10*3/uL Normal 3.6-10.7 [facility] Comment on above: Performed By: #### L [id number] ####Senior Vice President & General Counsel: VELMA VALADEZ ([phone])[facility])[address] [place] [address] Basophils (Bld) [#/Vol] 0.0 10*3/uL Normal 0.0-0.2 [facility] Comment on above: Performed By: #### L [id number] ####Senior Vice President & General Counsel: VELMA VALADEZ ([phone])[facility] ([facility])[address] [place] [address] Basophils/100 WBC (Bld) 0.3 % Normal 0.0-2.0 [facility] Comment on above: Performed By: #### L [id number] ####Senior Vice President & General Counsel: VELMA VALADEZ ([phone])[facility])[address] [place] [address] Eosinophils (Bld) [#/Vol] 0.1 10*3/uL Normal 0.0-0.5 [facility] Comment on above: Performed By: #### L [id number] ####Senior Vice President & General Counsel: VELMA VALADEZ ([phone])[facility])[address] [place] [address] Eosinophils/100 WBC (Bld) 1.5 % Normal 0.0-6.0 [facility] Comment on above: Performed By: #### L [id number] ####Senior Vice President & General Counsel: VELMA VALADEZ ([phone])[facility])[address] [place] [address] Erythrocyte distribution width (RBC) [Ratio] 19.2 % High 11.5-15.0 [facility] Comment on above: Performed By: #### L [id number] ####Senior Vice President & General Counsel: VELMA VALADEZ ([phone])[facility])[address] [place] [address] Hematocrit (Bld) [Volume fraction] 31.9 % Low 35.0-47.0 [facility] Comment on above: Performed By: #### L [id number] ####Senior Vice President & General Counsel: VELMA VALADEZ ([phone])[facility])[address] [place] [address] Hemoglobin (Bld) [Mass/Vol] 9.9 g/dL Low 11.7-16.0 [facility] Comment on above: Performed By: #### L [id number] ####Senior Vice President & General Counsel: VELMA VALADEZ ([phone])[facility])[address] [place] [address] IMMATURE GRANS % 0.5 % Normal 0.0-2.[address] [facility] Comment on above: Performed By: #### L [id number] ####Senior Vice President & General Counsel: VELMA VALADEZ ([phone])[facility])[address] [place] [address] IMMATURE GRANS ABSOLUTE 0.0 10*3/uL Normal <0.1 [facility] Comment on above: Performed By: #### L [id number] ####Senior Vice President & General Counsel: VELMA VALADEZ ([phone])[facility] ([facility])[address] [place] [address] Lymphocytes (Bld) [#/Vol] 1.1 10*3/uL Normal 1.0-4.3 [facility] Comment on above: Performed By: #### L [id number] ####Senior Vice President & General Counsel: VELMA VALADEZ ([phone])[facility])[address] [place] [address] Lymphocytes/100 WBC (Bld) 16.6 % Normal 15.0-45.0 [facility] Comment on above: Performed By: #### L [id number] ####Senior Vice President & General Counsel: VELMA VALADEZ ([phone])[facility])[address] [place] [address] MCH (RBC) [Entitic mass] 26.2 pg Normal 26.0-34.0 [facility] Comment on above: Performed By: #### L [id number] ####Senior Vice President & General Counsel: VELMA VALADEZ ([phone])[facility])[address] [place] [address] MCHC 31.0 % Normal 30.5-36.0 [facility] Comment on above: Performed By: #### L [id number] ####Senior Vice President & General Counsel: VELMA VALADEZ ([phone])[facility])[address] [place] [address] MCV (RBC) [Entitic vol] 84.4 fL Normal 77.0-99.0 [facility] Comment on above: Performed By: #### L [id number] ####Senior Vice President & General Counsel: VELMA VALADEZ ([phone])[facility] ([facility])[address] [place] [address] Monocytes (Bld) [#/Vol] 0.6 10*3/uL Normal 0.0-0.9 [facility] Comment on above: Performed By: #### L [id number] ####Senior Vice President & General Counsel: VELMA VALADEZ ([phone])[facility] ([facility])[address] [place] [address] Monocytes/100 WBC (Bld) 9.1 % Normal 5.0-13.0 [facility] Comment on above: Performed By: #### L [id number] ####Senior Vice President & General Counsel: VELMA VALADEZ ([phone])[facility] ([facility])[address] [place] [address] NEUTROPHILS ABSOLUTE 4.7 10*3/uL Normal 1.8-7.5 [facility] Comment on above: Performed By: #### L [id number] ####Senior Vice President & General Counsel: VELMA VALADEZ ([phone])[facility])[address] [place] [address] Neutrophils/100 WBC (Bld) 72.0 % Normal 38.0-82.0 [facility] Comment on above: Performed By: #### L [id number] ####Senior Vice President & General Counsel: VELMA VALADEZ ([id number])[facility] ([facility])[address] [place] [address] [place] NRBC 0.0 /100 WBCs Normal 0.0-2.0 [facility] Comment on above: Performed By: #### L [id number] ####Senior Vice President & General Counsel: VELMA VALADEZ ([phone])[facility])[address] [place] [address] Platelet mean volume (Bld) [Entitic vol] 10.0 fL Normal 9.0-12.7 [facility] Comment on above: Performed By: #### L [id number] ####Senior Vice President & General Counsel: VELMA VALADEZ ([phone])[facility] ([facility])[address] [place] [address] Platelets (Bld) [#/Vol] 242 10*3/uL Normal 140-440 [facility] Comment on above: Performed By: #### L [id number] ####Senior Vice President & General Counsel: VELMA VALADEZ ([phone])[facility])[address] [place] [address] RBC (Bld) [#/Vol] 3.78 10*6/uL Low 3.80-5.20 [facility] Comment on above: Performed By: #### L [id number] ####Senior Vice President & General Counsel: VELMA VALADEZ ([phone])[facility] ([facility])[address] [place] [address] WBC (Bld) [#/Vol] 6.5 10*3/uL Normal 3.6-10.7 [facility] Comment on above: Performed By: #### L [id number] ####Senior Vice President & General Counsel: VELMA VALADEZ ([phone])[facility] ([facility])[address] [place] [address] COMPREHENSIVE METABOLIC PANE Gilberto 08-05-2024 Albumin [Mass/Vol] 2.4 g/dL Low 3.4-4.8 [facility] Comment on above: Performed By: #### L [id number] ####Senior Vice President & General Counsel: VELMA VALADEZ ([phone])[facility])[address] [place] [address] ALP [Catalytic activity/Vol] 72 U/L Normal 40-150 [facility] Comment on above: Performed By: #### L [id number] ####Senior Vice President & General Counsel: VELMA VALADEZ ([phone])[facility] ([facility])[address] [place] [address] ALT [Catalytic activity/Vol] 24 U/L Normal <30 [facility] Comment on above: Performed By: #### L [id number] ####Senior Vice President & General Counsel: VELMA VALADEZ ([phone])[facility] ([facility])[address] [place] [address] Anion gap [Moles/Vol] 7 mmol/L Normal 3-13 [facility] Comment on above: Performed By: #### L [id number] ####Senior Vice President & General Counsel: VELMA VALADEZ ([phone])[facility] ([facility])[address] [place] [address] AST [Catalytic activity/Vol] 21 U/L Normal <34 [facility] Comment on above: Performed By: #### L [id number] ####Senior Vice President & General Counsel: VELMA VALADEZ ([phone])[facility] ([facility])[address] [place] [address] Bilirubin [Mass/Vol] 0.9 mg/dL Normal <1.2 [facility] Comment on above: Performed By: #### L [id number] ####Senior Vice President & General Counsel: VELMA VALADEZ ([phone])[facility] ([facility])[address] [place] [address] Calcium [Mass/Vol] 8.4 mg/dL Low 8.8-10.0 [facility] Comment on above: Performed By: #### L [id number] ####Senior Vice President & General Counsel: VELMA VALADEZ ([phone])[facility] ([facility])[address] [place] [address] [place] Chloride [Moles/Vol] 115 mmol/L High 98-107 [facility] Comment on above: Performed By: #### L [id number] ####Senior Vice President & General Counsel: VELMA VALADEZ ([phone])[facility] ([facility])[address] [place] [address] [place] CO2 [Moles/Vol] 17 mmol/L Low 23-31 [facility] Comment on above: Performed By: #### L [id number] ####Senior Vice President & General Counsel: VELMA VALADEZ ([id number])[facility])[address] [place] [address] Creatinine [Mass/Vol] 0.91 mg/dL Normal 0.57-1.11 [facility] Comment on above: Performed By: #### L [id number] ####Senior Vice President & General Counsel: VELMA VALADEZ ([phone])[facility])[address] [place] [address] GLOMERULAR FILTRATION RATE ML/MIN/1.73 SQ M.PREDICTED 62.3 mL/min/1.73m*2 Normal >60.0 [facility] Comment on above: Result Comment: Calc ulation based on the Chronic Kidney Disease Epidemiology Collaboration (CKD-EPI) equation refit without adjustment for race Performed By: #### L [id number] ####Senior Vice President & General Counsel: VELMA VALADEZ ([phone])[facility])[address] [place] [address] Glucose [Mass/Vol] 92 mg/dL Normal 82-115 [facility] Comment on above: Performed By: #### L [id number] ####Senior Vice President & General Counsel: VELMA VALADEZ ([phone])[facility])[address] [place] [address] Potassium [Moles/Vol] 3.8 mmol/L Normal 3.5-5.1 [facility] Comment on above: Result Comment: [facility] potassium values may be up to 0.5 mmol/L lower than serum values. Performed By: #### L [id number] ####Senior Vice President & General Counsel: VELMA VALADEZ ([phone])[facility])[address] [place] [address] Protein [Mass/Vol] 5.5 g/dL Low 6.4-8.3 [facility] Comment on above: Performed By: #### L [id number] ####Senior Vice President & General Counsel: VELMA VALADEZ ([phone])[facility])[address] [place] [address] [place] Sodium [Moles/Vol] 139 mmol/L Normal 136-145 [facility] Comment on above: Performed By: #### L [id number] ####Senior Vice President & General Counsel: VELMA VALADEZ ([phone])[facility])[address] [place] [address] Urea nitrogen [Mass/Vol] 9 mg/dL Normal 9-23 [facility] Comment on above: Performed By: #### L [id number] ####Senior Vice President & General Counsel: VELMA VALADEZ ([phone])[facility] ([facility])[address] [place] [address] Albumin [Mass/Vol] 2.3 g/dL Low 3.4-4.8 [facility] Comment on above: Performed By: #### L [id number] ####Senior Vice President & General Counsel: VELMA VALADEZ ([phone])[facility])[address] [place] [address] ALP [Catalytic activity/Vol] 74 U/L Normal 40-150 [facility] Comment on above: Performed By: #### L [id number] ####Senior Vice President & General Counsel: VELMA VALADEZ ([phone])[facility])[address] [place] [address] ALT [Catalytic activity/Vol] 27 U/L Normal <30 [facility] Comment on above: Performed By: #### L [id number] ####Senior Vice President & General Counsel: VELMA VALADEZ ([phone])[facility] ([facility])[address] [place] [address] Anion gap [Moles/Vol] 5 mmol/L Normal 3-13 [facility] Comment on above: Performed By: #### L [id number] ####Senior Vice President & General Counsel: VELMA VALADEZ ([phone])[facility])[address] [place] [address] AST [Catalytic activity/Vol] 24 U/L Normal <34 [facility] Comment on above: Performed By: #### L [id number] ####Senior Vice President & General Counsel: VELMA VALADEZ ([phone])[facility])[address] [place] [address] Bilirubin [Mass/Vol] 0.6 mg/dL Normal <1.2 [facility] Comment on above: Performed By: #### L [id number] ####Senior Vice President & General Counsel: VELMA VALADEZ ([phone])[facility] ([facility])[address] [place] [address] Calcium [Mass/Vol] 8.1 mg/dL Low 8.8-10.0 [facility] Comment on above: Performed By: #### L [id number] ####Senior Vice President & General Counsel: VELMA VALADEZ ([phone])[facility] ([facility])[address] [place] [address] Chloride [Moles/Vol] 108 mmol/L High 98-107 [facility] Comment on above: Performed By: #### L [id number] ####Senior Vice President & General Counsel: VELMA VALADEZ ([phone])[facility] ([facility])[address] [place] [address] CO2 [Moles/Vol] 21 mmol/L Low 23-31 [facility] Comment on above: Performed By: #### L [id number] ####Senior Vice President & General Counsel: VELMA VALADEZ ([phone])[facility] ([facility])[address] [place] [address] Creatinine [Mass/Vol] 0.89 mg/dL Normal 0.57-1.11 [facility] Comment on above: Performed By: #### L [id number] ####Senior Vice President & General Counsel: VELMA VALADEZ ([phone])[facility])[address] [place] [address] GLOMERULAR FILTRATION RATE ML/MIN/1.73 SQ M.PREDICTED 64.0 mL/min/1.73m*2 Normal >60.0 [facility] Comment on above: Result Comment: Calc ulation based on the Chronic Kidney Disease Epidemiology Collaboration (CKD-EPI) equation refit without adjustment for race Performed By: #### L [id number] ####Senior Vice President & General Counsel: VELMA VALADEZ ([phone])[facility] ([facility])[address] [place] [address] Glucose [Mass/Vol] 85 mg/dL Normal 82-115 [facility] Comment on above: Performed By: #### L [id number] ####Senior Vice President & General Counsel: VELMA VALADEZ ([phone])[facility])[address] [place] [address] Potassium [Moles/Vol] 3.8 mmol/L Normal 3.5-5.1 [facility] Comment on above: Result Comment: [facility] potassium values may be up to 0.5 mmol/L lower than serum values. Performed By: #### L [id number] ####Senior Vice President & General Counsel: VELMA VALADEZ ([phone])[facility] ([facility])[address] [place] [address] Protein [Mass/Vol] 5.2 g/dL Low 6.4-8.3 [facility] Comment on above: Performed By: #### L [id number] ####Senior Vice President & General Counsel: VELMA VALADEZ ([phone])[facility])[address] [place] [address] Sodium [Moles/Vol] 134 mmol/L Low 136-145 [facility] Comment on above: Performed By: #### L [id number] ####Senior Vice President & General Counsel: VELMA VALADEZ ([phone])[facility])[address] [place] [address] Urea nitrogen [Mass/Vol] 13 mg/dL Normal 9-23 [facility] Comment on above: Performed By: #### L [id number] ####Senior Vice President & General Counsel: VELMA VALADEZ ([phone])[facility])[address] [place] [address] Comprehensive metabolic 1998 panelon 08-05-2024 Albumin [Mass/Vol] [...] Center Progress Noteon 08-05-2024 Progress Note Normal [facility] Progress Note Normal [facility] 30on 08-04-2024 30 Normal [facility] 30 Normal [facility] CBC W Auto Differential pane l (Bld)Ordered By: Devika Eisenberg on 08-04-2024 Basophils (Bld) [#/Vol] 0 10*3/uL 0.0 - 0.2 10*3/uL [facility] Basophils/100 WBC (Bld) 0.2 % 0.0 - 2.0 % [facility] Eosinophils (Bld) [#/Vol] 0.1 10*3/uL 0.0 - 0.5 10*3/uL [facility] Eosinophils/100 WBC (Bld) 1.4 % 0.0 - 6.0 % [facility] Erythrocyte distribution width (RBC) [Ratio] 19.3 % High 11.5 - 15.0 % [facility] Hematocrit (Bld) [Volume fraction] 33 % Low 35.0 - 47.0 % [facility] Hemoglobin (Bld) [Mass/Vol] 10 g/dL Low 11.7 - 16.0 g/dL [facility] Immature granulocytes (Bld) [#/Vol] 0 10*3/uL NINF - 0.1 10*3/uL [facility] Immature granulocytes/100 WBC (Bld) 0.5 % 0.0 - 2.0 % [facility] Interpretation and review of laboratory results Abnormal [facility] Lymphocytes (Bld) [#/Vol] 1 10*3/uL 1.0 - 4.3 10*3/uL [facility] Lymphocytes/100 WBC (Bld) 17.7 % 15.0 - 45.0 % [facility] MCH (RBC) [Entitic mass] 25.8 pg Low 26.0 - 34.0 pg [facility] MCHC (RBC) [Mass/Vol] 30.3 % Low 30.5 - 36.0 % [facility] MCV (RBC) [Entitic vol] 85.1 fL 77.0 - 99.0 fL [facility] Monocytes (Bld) [#/Vol] 0.5 10*3/uL 0.0 - 0.9 10*3/uL [facility] Monocytes/100 WBC (Bld) 9.5 % 5.0 - 13.0 % [facility] Neutrophils (Bld) [#/Vol] 3.9 10*3/uL 1.8 - 7.5 10*3/uL [facility] Neutrophils/100 WBC (Bld) 70.7 % 38.0 - 82.0 % [facility] Nucleated RBC/100 WBC (Bld) [Ratio] 0 % [facility] Platelet mean volume (Bld) [Entitic vol] 9.8 fL 9.0 - 12.7 fL [facility] Platelets (Bld) [#/Vol] 280 10*3/uL 140 - 440 10*3/uL [facility] RBC (Bld) [#/Vol] 3.88 10*6/uL 3.80 - 5.2 0 10*6/uL [facility] WBC (Bld) [#/Vol] 5.6 10*3/uL 3.6 - 10.7 10*3/uL [facility] CBC WITH AUTO DIFFERENTIALon 08-04-2024 Basophils (Bld) [#/Vol] 0.0 10*3/uL Normal 0.0-0.2 [facility] Comment on above: Performed By: #### L [id number] ####Senior Vice President & General Counsel: VELMA VALADEZ ([phone])[facility])[address] [place] [address] Basophils/100 WBC (Bld) 0.2 % Normal 0.0-2.0 [facility] Comment on above: Performed By: #### L [id number] ####Senior Vice President & General Counsel: VELMA VALADEZ ([phone])[facility])[address] [place] [address] Eosinophils (Bld) [#/Vol] 0.1 10*3/uL Normal 0.0-0.5 [facility] Comment on above: Performed By: #### L [id number] ####Senior Vice President & General Counsel: VELMA VALADEZ ([phone])[facility])[address] [place] [address] Eosinophils/100 WBC (Bld) 1.4 % Normal 0.0-6.0 [facility] Comment on above: Performed By: #### L [id number] ####Senior Vice President & General Counsel: VELMA VALADEZ ([phone])[facility])[address] [place] [address] Erythrocyte distribution width (RBC) [Ratio] 19.3 % High 11.5-15.0 [facility] Comment on above: Performed By: #### L [id number] ####Senior Vice President & General Counsel: VELMA VALADEZ ([phone])[facility])[address] [place] [address] Hematocrit (Bld) [Volume fraction] 33.0 % Low 35.0-47.0 [facility] Comment on above: Performed By: #### L [id number] ####Senior Vice President & General Counsel: VELMA VALADEZ ([phone])[facility])[address] [place] [address] Hemoglobin (Bld) [Mass/Vol] 10.0 g/dL Low 11.7-16.0 [facility] Comment on above: Performed By: #### L [id number] ####Senior Vice President & General Counsel: VELMA VALADEZ ([phone])[facility])[address] [place] [address] IMMATURE GRANS % 0.5 % Normal 0.0-2.[address] [facility] Comment on above: Performed By: #### L [id number] ####Senior Vice President & General Counsel: VELMA VALADEZ ([phone])[address] IMMATURE GRANS ABSOLUTE 0.0 10*3/uL Normal <0.1 [facility] Comment on above: Performed By: #### L [id number] ####Senior Vice President & General Counsel: VELMA VLAADEZ ([phone])[facility])[address] [place] [address] Lymphocytes (Bld) [#/Vol] 1.0 10*3/uL Normal 1.0-4.3 [facility] Comment on above: Performed By: #### L [id number] ####Senior Vice President & General Counsel: VELMA VALADEZ ([phone])[address] Lymphocytes/100 WBC (Bld) 17.7 % Normal 15.0-45.0 [facility] Comment on above: Performed By: #### L [id number] ####Senior Vice President & General Counsel: VELMA VALADEZ ([phone])[facility])[address] [place] [address] MCH (RBC) [Entitic mass] 25.8 pg Low 26.0-34.0 [facility] Comment on above: Performed By: #### L [id number] ####Senior Vice President & General Counsel: VELMA VALADEZ ([phone])[facility])[address] [place] [address] MCHC 30.3 % Low 30.5-36.0 [facility] Comment on above: Performed By: #### L [id number] ####Senior Vice President & General Counsel: VELMA VALADEZ ([phone])[facility])[address] [place] [address] MCV (RBC) [Entitic vol] 85.1 fL Normal 77.0-99.0 [facility] Comment on above: Performed By: #### L [id number] ####Senior Vice President & General Counsel: VELMA VALADEZ ([phone])[facility] ([facility])[address] [place] [address] Monocytes (Bld) [#/Vol] 0.5 10*3/uL Normal 0.0-0.9 [facility] Comment on above: Performed By: #### L [id number] ####Senior Vice President & General Counsel: VELMA VALADEZ ([phone])[facility] ([facility])[address] [place] [address] Monocytes/100 WBC (Bld) 9.5 % Normal 5.0-13.0 [facility] Comment on above: Performed By: #### L [id number] ####Senior Vice President & General Counsel: VELMA VALADEZ ([phone])[facility] ([facility])[address] [place] [address] NEUTROPHILS ABSOLUTE 3.9 10*3/uL Normal 1.8-7.5 [facility] Comment on above: Performed By: #### L [id number] ####Senior Vice President & General Counsel: VELMA VALADEZ ([phone])[facility])[address] [place] [address] Neutrophils/100 WBC (Bld) 70.7 % Normal 38.0-82.0 [facility] Comment on above: Performed By: #### L [id number] ####Senior Vice President & General Counsel: VEMLA VALADEZ ([phone])[facility])[address] [place] [address] NRBC 0.0 /100 WBCs Normal 0.0-2.0 [facility] Comment on above: Performed By: #### L [id number] ####Senior Vice President & General Counsel: VELMA VALADEZ ([phone])[facility] ([facility])[address] [place] [address] Platelet mean volume (Bld) [Entitic vol] 9.8 fL Normal 9.0-12.7 [facility] Comment on above: Performed By: #### L [id number] ####Senior Vice President & General Counsel: VELMA VALADEZ ([phone])[facility] ([facility])[address] [place] [address] Platelets (Bld) [#/Vol] 280 10*3/uL Normal 140-440 [facility] Comment on above: Performed By: #### L [id number] ####Senior Vice President & General Counsel: VELMA VALADEZ ([id number])[facility] ([facility])[address] [place] [address] RBC (Bld) [#/Vol] 3.88 10*6/uL Normal 3.80-5.20 [facility] Comment on above: Performed By: #### L [id number] ####Senior Vice President & General Counsel: VELMA VALADEZ ([phone])[facility])[address] [place] [address] WBC (Bld) [#/Vol] 5.6 10*3/uL Normal 3.6-10.7 [facility] Comment on above: Performed By: #### L [id number] ####Senior Vice President & General Counsel: VELMA VALADEZ ([phone])[facility])[address] [place] [address] COMPREHENSIVE METABOLIC PANE Gilberto 08-04-2024 Albumin [Mass/Vol] 2.3 g/dL Low 3.4-4.8 [facility] Comment on above: Performed By: #### L [id number] ####Senior Vice President & General Counsel: VELMA VALADEZ ([phone])[facility])[address] [place] [address] ALP [Catalytic activity/Vol] 68 U/L Normal 40-150 [facility] Comment on above: Performed By: #### L [id number] ####Senior Vice President & General Counsel: VELMA VALADEZ ([phone])[facility])[address] [place] [address] ALT [Catalytic activity/Vol] 26 U/L Normal <30 [facility] Comment on above: Performed By: #### L [id number] ####Senior Vice President & General Counsel: VELMA VALADEZ ([phone])[facility] ([facility])[address] [place] [address] Anion gap [Moles/Vol] 6 mmol/L Normal 3-13 [facility] Comment on above: Performed By: #### L [id number] ####Senior Vice President & General Counsel: VELMA VALADEZ ([phone])[facility] ([facility])[address] [place] [address] AST [Catalytic activity/Vol] 25 U/L Normal <34 [facility] Comment on above: Performed By: #### L [id number] ####Senior Vice President & General Counsel: VELMA VALADEZ ([phone])[facility] ([facility])[address] [place] [address] Bilirubin [Mass/Vol] 0.5 mg/dL Normal <1.2 [facility] Comment on above: Performed By: #### L [id number] ####Senior Vice President & General Counsel: VELMA VALADEZ ([phone])[facility] ([facility])[address] [place] [address] Calcium [Mass/Vol] 8.2 mg/dL Low 8.8-10.0 [facility] Comment on above: Performed By: #### L [id number] ####Senior Vice President & General Counsel: VELMA VALADEZ ([phone])[facility] ([facility])[address] [place] [address] [place] Chloride [Moles/Vol] 112 mmol/L High 98-107 [facility] Comment on above: Performed By: #### L [id number] ####Senior Vice President & General Counsel: VELMA VALADEZ ([phone])[facility] ([facility])[address] [place] [address] [place] CO2 [Moles/Vol] 21 mmol/L Low 23-31 [facility] Comment on above: Performed By: #### L [id number] ####Senior Vice President & General Counsel: VELMA VALADEZ ([phone])[facility])[address] [place] [address] Creatinine [Mass/Vol] 1.13 mg/dL High 0.57-1.11 [facility] Comment on above: Performed By: #### L [id number] ####Senior Vice President & General Counsel: VELMA VALADEZ ([phone])[facility])[address] [place] [address] GLOMERULAR FILTRATION RATE ML/MIN/1.73 SQ M.PREDICTED 48.1 mL/min/1.73m*2 Low >60.0 [facility] Comment on above: Result Comment: Calc ulation based on the Chronic Kidney Disease Epidemiology Collaboration (CKD-EPI) equation refit without adjustment for race Performed By: #### L [id number] ####Senior Vice President & General Counsel: VELMA VALADEZ ([phone])[facility])[address] [place] [address] Glucose [Mass/Vol] 153 mg/dL High 82-115 [facility] Comment on above: Performed By: #### L [id number] ####Senior Vice President & General Counsel: VELMA VALADEZ ([phone])[facility])[address] [place] [address] Potassium [Moles/Vol] 3.9 mmol/L Normal 3.5-5.1 [facility] Comment on above: Result Comment: [facility] potassium values may be up to 0.5 mmol/L lower than serum values. Performed By: #### L [id number] ####Senior Vice President & General Counsel: VELMA VALADEZ ([phone])[facility])[address] [place] [address] Protein [Mass/Vol] 5.2 g/dL Low 6.4-8.3 [facility] Comment on above: Performed By: #### L [id number] ####Senior Vice President & General Counsel: VELMA VALADEZ ([phone])[facility])[address] [place] [address] Sodium [Moles/Vol] 139 mmol/L Normal 136-145 [facility] Comment on above: Performed By: #### L [id number] ####Senior Vice President & General Counsel: VELMA VALADEZ ([phone])[address] Urea nitrogen [Mass/Vol] 26 mg/dL High 9-23 [facility] Comment on above: Performed By: #### L [id number] ####Senior Vice President & General Counsel: VELMA VALADEZ ([phone])[facility] ([facility])[address] [place] [address] Comprehensive metabolic 1998 panelon 08-04-2024 Albumin [Mass/Vol] [...] passed and tolerated well tolerated well. Normal [facility] Progress Noteon 08-04-2024 Progress Note Normal [facility] 30on 08-03-2024 30 Normal [facility] 30 Normal [facility] 30 Normal [facility] [id number] 08-03-2024 [id number] Normal [facility] BASIC METABOLIC PANELon 07-18 Anion gap [Moles/Vol] 6 mmol/L Normal 3-13 [facility] Comment on above: Performed By: #### L [id number] ####Senior Vice President & General Counsel: VELMA VALADEZ ([phone])[facility] ([facility])[address] [place] [address] Calcium [Mass/Vol] 8.5 mg/dL Low 8.8-10.0 [facility] Comment on above: Performed By: #### L [id number] ####Senior Vice President & General Counsel: VELMA VALADEZ ([phone])[facility] ([facility])[address] [place] [address] [place] Chloride [Moles/Vol] 105 mmol/L Normal 98-107 [facility] Comment on above: Performed By: #### L [id number] ####Senior Vice President & General Counsel: VELMA VALADEZ ([phone])[facility] ([facility])[address] [place] [address] [place] CO2 [Moles/Vol] 27 mmol/L Normal 23-31 [facility] Comment on above: Performed By: #### L AB15 ####Senior Vice President & General Counsel: VELMA VALADEZ ([id number])[facility] ([facility])[address] [place] [address] [place] Creatinine [Mass/Vol] 1.18 mg/dL High 0.57-1.11 [facility] Comment on above: Performed By: #### L AB15 ####Senior Vice President & General Counsel: VELMA VALADEZ ([phone])[facility])[address] [place] [address] GLOMERULAR FILTRATION RATE ML/MIN/1.73 SQ M.PREDICTED 45.6 mL/min/1.73m*2 Low >60.0 [facility] Comment on above: Result Comment: Calc ulation based on the Chronic Kidney Disease Epidemiology Collaboration (CKD-EPI) equation refit without adjustment for race Performed By: #### L AB15 ####Senior Vice President & General Counsel: VELMA VALADEZ ([phone])[address] Glucose [Mass/Vol] 100 mg/dL Normal 82-115 [facility] Comment on above: Performed By: #### L [id number] ####Senior Vice President & General Counsel: VELMA VALADEZ ([phone])[address] Potassium [Moles/Vol] 4.7 mmol/L Normal 3.5-5.1 [facility] Comment on above: Result Comment: [facility] potassium values may be up to 0.5 mmol/L lower than serum values. Performed By: #### L AB15 ####Senior Vice President & General Counsel: VELMA VALADEZ ([phone])[facility])[address] [place] [address] Sodium [Moles/Vol] 138 mmol/L Normal 136-145 [facility] Comment on above: Performed By: #### L AB15 ####Senior Vice President & General Counsel: VELMA VALADEZ ([phone])[facility])[address] [place] [address] Urea nitrogen [Mass/Vol] 33 mg/dL High 9-23 [facility] Comment on above: Performed By: #### L [id number] ####Senior Vice President & General Counsel: VELMA [phone])[address] Basic metabolic 1998 panelOr dered By: Juni [...] [#/Vol] 303 10*3/uL 140 - 440 10*3/uL [facility] RBC (Bld) [#/Vol] 4.65 10*6/uL 3.80 - 5.2 0 10*6/uL [facility] WBC (Bld) [#/Vol] 9.1 10*3/uL 3.6 - 10.7 10*3/uL [facility] CBC WITH AUTO DIFFERENTIALon 08-03-2024 Erythrocyte distribution width (RBC) [Ratio] 19.4 % High 11.5-15.0 [facility] Comment on above: Performed By: #### L [id number], [id number] ####Senior Vice President & General Counsel: VELMA VALADEZ ([phone])[facility] [place] [facility] ([facility])[address] [place] [address] Hematocrit (Bld) [Volume fraction] 38.7 % Normal 35.0-47.0 [facility] Comment on above: Performed By: #### [place] [id number], [id number] ####Senior Vice President & General Counsel: VELMA VALADEZ ([phone])[facility] [place] [facility] ([facility])[address] [place], [place] [address] Hemoglobin (Bld) [Mass/Vol] 12.1 g/dL Normal 11.7-16.0 [facility] Comment on above: Performed By: #### L [id number], [id number] ####Senior Vice President & General Counsel: VELMA VALADEZ ([phone])[facility] OHIOS[facility]ran CARLTONROSANGELA RITTMAN (SWRLAB)[address] [place] [address] MCH (RBC) [Entitic mass] 26.0 pg Normal 26.0-34.0 [facility] Comment on above: Performed By: #### L [id number], [id number] ####Senior Vice President & General Counsel: VELMA VALADEZ ([phone])[facility] ROSANGELA RITTMAN (SWRLAB)[address] MCHC 31.3 % Normal 30.5-36.0 [facility] Comment on above: Performed By: #### L [id number], [id number] ####Senior Vice President & General Counsel: VELMA VALADEZ ([phone])[facility] AD[facility] RITTMAN (SWRLAB)[address] MCV (RBC) [Entitic vol] 83.2 fL Normal 77.0-99.0 [facility] Comment on above: Performed By: #### L [id number], [id number] ####Senior Vice President & General Counsel: VELMA VALADEZ ([phone])[facility] [place] ADAMES RITTMAN (SWRLAB)[address] [place] [address] NRBC 0.0 /100 WBCs Normal 0.0-2.0 [facility] Comment on above: Performed By: #### Weston [id number], [id number] ####Senior Vice President & General Counsel: VELMA VALADEZ ([phone])[facility] [place] ADAMES RITTMAN (SWRLAB)[address] [place] [address] Platelet mean volume (Bld) [Entitic vol] 9.8 fL Normal 9.0-12.7 [facility] Comment on above: Result Comment: MPV is a calculated measurement using platelet volume ratio Performed By: #### L [id number], [id number] ####Senior Vice President & General Counsel: VELMA VALADEZ ([phone])[facility] [place] ADAMES RITTMAN (SWRLAB)[address] [place] [address] [place] Platelets (Bld) [#/Vol] 303 10*3/uL Normal 140-440 [facility] Comment on above: Performed By: #### L [id number], [id number] ####Senior Vice President & General Counsel: VELMA VALADEZ ([phone])[facility] [place] ADAMES RITTMAN (SWRLAB)[address] [place] [address] [place] RBC (Bld) [#/Vol] 4.65 10*6/uL Normal 3.80-5.20 [facility] Comment on above: Performed By: #### L [id number], [id number] ####Senior Vice President & General Counsel: VELMA VALADEZ ([phone])[facility] [place] VERDINTMAN (SWRLAB)[address] WBC (Bld) [#/Vol] 9.1 10*3/uL Normal 3.6-10.7 [facility] Comment on above: Performed By: #### Weston [id number], [id number] ####Senior Vice President & General Counsel: VELMA VALADEZ ([phone])[facility] [place] ADAMES RITTMAN (SWRLAB)[address] COMPREHENSIVE METABOLIC PANE Gilberto 08-03-2024 Albumin [Mass/Vol] 2.8 g/dL Low 3.4-4.8 [facility] Comment on above: Performed By: #### Weston AB17, EOR591, LAB99 ####Senior Vice President & General Counsel: VELMA VALADEZ ([phone])[facility] [place] ADAMES RITTMAN (SWRLAB)[address] ALP [Catalytic activity/Vol] 82 U/L Normal 40-150 [facility] Comment on above: Performed By: #### L AB17, BCG280, LAB99 ####Senior Vice President & General Counsel: VELMA VALADEZ ([phone])[facility] [place] ADAMES RITTM[place] (SWRLAB)[address] ALT [Catalytic activity/Vol] 26 U/L Normal <30 [facility] Comment on above: Performed By: #### L AB17, BCZ112, LAB99 ####Senior Vice President & General Counsel: VELMA VALADEZ ([phone])[facility] [place] ADAMES RITTMAN (SWRLAB)[address] Anion gap [Moles/Vol] 9 mmol/L Normal 3-13 [facility] Comment on above: Performed By: #### L AB17, VKK800, LAB99 ####Senior Vice President & General Counsel: VELMA VALADEZ ([phone])[facility] [place] ADAMES RITTMAN (SWRLAB)[address] [place] [address] [place] AST [Catalytic activity/Vol] 36 U/L High <34 [facility] Comment on above: Result Comment: TCSi gnificant interference from hemolysis. Result integrity compromised. Interpret with caution. Performed By: #### Weston AB17, [id number], LAB99 ####Senior Vice President & General Counsel: VELMA VALADEZ ([phone])[facility] [place] ADAMES RITTMAN (SWRLAB)[address] Bilirubin [Mass/Vol] 0.7 mg/dL Normal <1.2 [facility] Comment on above: Performed By: #### Weston AB17, [id number], LAB99 ####Senior Vice President & General Counsel: VELMA VALADEZ ([phone])[facility] [place] ADAMES RITTMAN (SWRLAB)[address] [place] [address] [place] Calcium [Mass/Vol] 9.0 mg/dL Normal 8.8-10.0 [facility] Comment on above: Performed By: #### Weston AB17, KRZ803, LAB99 ####Senior Vice President & General Counsel: VELMA VALADEZ ([phone])[facility] [place] ADAMES RITTMAN (SWRLAB)[address] [place] [address] [place] Chloride [Moles/Vol] 109 mmol/L High 98-107 [facility] Comment on above: Performed By: #### Weston REIS17, [id number], LAB99 ####Senior Vice President & General Counsel: VELMA VALADEZ ([phone])[facility] [place] ADAMES RITTMAN (SWRLAB)[address] [place] [address] [place] CO2 [Moles/Vol] 21 mmol/L Low 23-31 [facility] Comment on above: Performed By: #### Weston AB17, JAR599, LAB99 ####Senior Vice President & General Counsel: VELMA VALADEZ ([phone])[facility] [place] ADAMES RITTMAN (SWRLAB)[address] [place] [address] [place] Creatinine [Mass/Vol] 1.30 mg/dL High 0.57-1.11 [facility] Comment on above: Performed By: #### Weston HOLLY, [id number], LAB99 ####Senior Vice President & General Counsel: VELMA VALADEZ ([phone])[facility] [place] VERDINTMAN (SWRLAB)[address] [place] [address] GLOMERULAR FILTRATION RATE ML/MIN/1.73 SQ M.PREDICTED 40.6 mL/min/1.73m*2 Low >60.0 [facility] Comment on above: Result Comment: Calc ulation based on the Chronic Kidney Disease Epidemiology Collaboration (CKD-EPI) equation refit without adjustment for race Performed By: #### Weston HOLLY, [id number], LAB99 ####Senior Vice President & General Counsel: VELMA VALADEZ ([phone])[facility] [place] ADAMES RITTMAN (SWRLAB)[address] [place] [address] Glucose [Mass/Vol] 103 mg/dL Normal 82-115 [facility] Comment on above: Performed By: #### Weston HOLLY, [id number], LAB99 ####Senior Vice President & General Counsel: VELMA VALADEZ ([phone])[facility] [place] ADAMES RITTMAN (SWRLAB)[address] [place] [address] [place] Potassium [Moles/Vol] 5.9 mmol/L High 3.5-5.1 [facility] Comment on above: Result Comment: TCSi gnificant interference from hemolysis. Result integrity compromised. Interpret with caution. Performed By: #### Weston HOLLY, [id number], LAB99 ####Senior Vice President & General Counsel: VELMA VALADEZ ([phone])[facility] [place] ADAMES RITTMAN (SWRLAB)[address] [place] [address] [place] Protein [Mass/Vol] 6.7 g/dL Normal 6.4-8.3 [facility] Comment on above: Result Comment: TCPo tential interference from hemolysis Performed By: #### Weston REIS17, [id number], LAB99 ####Senior Vice President & General Counsel: VELMA VALADEZ ([phone])[facility] [place] ADAMES RITTMAN (SWRLAB)[address] [place] [address] [place] Sodium [Moles/Vol] 139 mmol/L Normal 136-145 [facility] Comment on above: Performed By: #### L AB17, [id number], LAB99 ####Senior Vice President & General Counsel: VELMA VALADEZ ([phone])[facility] CultureMapTMAN (SWRLAB)[address] [place] [address] Urea nitrogen [Mass/Vol] 34 mg/dL High 9-23 [facility] Comment on above: Performed By: #### L AB17, AZY126, LAB99 ####Senior Vice President & General Counsel: VELMA VALADEZ ([phone])[facility] RITTMAN (SWRLAB)[address] [place] [address] CT ABDOMEN PELVIS WO IV CONT RASTon 08-03-2024 CT ABDOMEN PELVIS WO IV CONTRAST Normal [facility] CT Abdomen and Pelvis WO con traston 08-03-2024 1. Extensive colonic diverticulosis without evidence of diverticulitis 2. Consolidation in the medial left lower lobe, possibly pneumonia 3. No bowel dilatation Report Dictated on Electronically Signed By: Ming Fry MD Electronically Signed Date/Time: 08/03/2024 4:05 AM [facility] Patient Name: MEL CARVER RD : 1940 [facility]#: [id number] Exam Date/Time: 08/03/2024 03:05 Procedure: CT ABDOMEN [...] 08/03/2024 [facility] 1940 [id number] Exam Date/Time: 08/03/2024 03:05 Procedure: CT ABDOMEN [...] Electronically Signed Date/Time: 08/03/2024 4:05 AM EST [facility] Radiology Study observation (narrative) [facility] CT Abdomen and Pelvis WO con trastOrdered By: Ming Fry on 08-03-2024 [facility] Work Phone: Comprehensive metabolic 1998 panelon 08-03-2024 Albumin [Mass/Vol] 2.8 g/dL Low 3.4 - 4.8 g/dL [facility] ALP [Catalytic activity/Vol] 82 U/L 40 - 150 U/L [facility] ALT [Catalytic activity/Vol] 26 U/L NINF - 30 U/L [facility] Anion gap [Moles/Vol] 9 mmol/L 3 - 13 mmol/L [facility] AST [Catalytic activity/Vol] 36 U/L [facility] U/L [facility] Comment on above: TC Significant interference from hemolysis. Result integrity compromised. Interpret with caution. Bilirubin [Mass/Vol] 0.7 mg/dL NINF - 1.2 mg/dL [facility] Calcium [Mass/Vol] 9 mg/dL 8.8 - 10. 0 mg/dL [facility] Chloride [Moles/Vol] 109 mmol/L High 98 - [...] Nursing Note Pt placed in roundtrip Normal [facility] ED Nursing Note ED CT and ED xray notified that patient is ready Normal [facility] ED Provider Noteon ED Provider Note Normal [facility] GASTROINTESTINAL PCR PANELon 08-03-2024 GASTROINTESTINAL PCR PANEL Normal [facility] Comment on above: Performed By: #### L [id number] ####Senior Vice President & General Counsel: VELMA VALADEZ ([phone])[facility] ([address] Gastrointestinal pathogens p masoud OXANA+probe (Stl)Ordered [...] REFLEXon Lactate [Moles/Vol] 1.9 mmol/L Normal 0.5-2.2 [facility] Comment on above: Performed By: #### L [id number] ####Senior Vice President & General Counsel: VELMA VALADEZ ([phone])[facility] (SACLAB)[address] [place] [address] LIPASEon 08-03-2024 Lipase [Catalytic activity/Vol] 8 U/L Normal <55 [facility] Comment on above: Performed By: #### L AB17, GQS818, LAB99 ####Senior Vice President & General Counsel: VELMA VALADEZ ([phone])[facility] (SWRLAB)[address] [place] [address] Laboratory - Chemistry and C hemistry - [...] In compliance with this authorization, please visit www.fda.gov/media/07595 5/download or www.fda.gov/media/39573 6/download to access the applicable information sheets. [facility] MAGNESIUMon 08-03-2024 Magnesium [Mass/Vol] 1.9 mg/dL Normal 1.6-2.6 [facility] Comment on above: Result Comment: ORDE R COMMENTS:Higher values can be expected in females during menses. Performed By: #### L AB17, [id number], LAB99 ####Senior Vice President & General Counsel: VELMA VALADEZ ([phone])[facility] OHIOGalantos PharmaTMAN (SWRLAB)[address] [place] [address] MANUAL DIFFERENTIALon 2024 BASOPHILS (10*3/UL) IN BLOOD BY MANUAL COUNT 0.0 10*3/uL Normal 0.0-0.2 [facility] Comment on above: Performed By: #### Weston [id number], [id number] ####Senior Vice President & General Counsel: VELMA VALADEZ ([phone])[facility] ROSANGELA RITTMAN (SWRLAB)[address] [place] [address] [place] BASOPHILS TOTAL PER COUNTED LEUKOCYTES BY MANUAL COUNT 0 Normal [facility] Comment on above: Performed By: #### L [id number], [id number] ####Senior Vice President & General Counsel: VELMA VALADEZ ([phone])[facility] ROS[place]ELA RITTMAN (SWRLAB)[address] [place] [address] [place] BASOPHILS/100 LEUKOCYTES IN BLOOD BY MANUAL COUNT 0 % Normal 0-2 [facility] Comment on above: Performed By: #### L [id number], [id number] ####Senior Vice President & General Counsel: VELMA VALADEZ ([phone])[facility] ROSANGELA RITTMAN (SWRLAB)[address] [place] [address] [place] CELLS COUNTED TOTAL (#) IN BLOOD 100 Normal [facility] Comment on above: Performed By: #### L CH6760, [id number] ####Senior Vice President & General Counsel: VELMA VALADEZ ([phone])[facility] [place]A R[place] (SWRLAB)[address] [place] [address] [place] DIFFERENTIAL METHOD Automated differenti al reported after manual slide review Normal [facility] Comment on above: Performed By: #### L [id number], [id number] ####Senior Vice President & General Counsel: VELMA VALADEZ ([phone])[facility] ROS[place]ELA RITTMAN (SWRLAB)[address] [place] [address] [place] EOSINOPHILS (10*3/UL) IN BLOOD BY MANUAL COUNT 0.1 10*3/uL Normal 0.0-0.5 [facility] Comment on above: Performed By: #### L [id number], [id number] ####Senior Vice President & General Counsel: VELMA VALADEZ ([phone])[facility] ROS[place]ELA RITTMAN (SWRLAB)[address] [place] [address] [place] EOSINOPHILS TOTAL PER COUNTED LEUKOCYTES BY MANUAL COUNT 1 Normal 0-1 [facility] Comment on above: Performed By: #### L [id number], KPI7049 ####Senior Vice President & General Counsel: VELMA VALADEZ ([phone])[facility] [place]A RITTMAN (SWRLAB)[address] [place] [address] [place] EOSINOPHILS/100 LEUKOCYTES IN BLOOD BY MANUAL COUNT 1 % Normal 0-6 [facility] Comment on above: Performed By: #### L [id number], [id number] ####Senior Vice President & General Counsel: VELMA VALADEZ ([phone])[facility] [place]ELA RIT[place]AN (SWRLAB)[address] [place] [address] [place] LEUKOCYTE MORPHOLOGY FINDING IN BLOOD Normal Normal [facility] Comment on above: Performed By: #### L [id number], [id number] ####Senior Vice President & General Counsel: VELMA VALADEZ ([phone])[facility] [place]IT[place] (SWRLAB)[address] [place] [address] [place] LEUKOCYTES (10*3/UL) NUCLEATED ERYTHROCYTE ADJUST 9.1 10*3/uL Normal 3.6-10.7 [facility] Comment on above: Performed By: #### L [id number], [id number] ####Senior Vice President & General Counsel: VELMA VALADEZ ([phone])[facility] ROS[place]ELA RITTMAN (SWRLAB)[address] [place] [address] [place] LYMPHOCYTES (10*3/UL) IN BLOOD BY MANUAL COUNT 0.5 10*3/uL Low 1.0-4.3 [facility] Comment on above: Performed By: #### L [id number], [id number] ####Senior Vice President & General Counsel: VELMA VALADEZ ([phone])[facility] ROS[place]ELA RITTMAN (SWRLAB)[address] [place] [address] [place] LYMPHOCYTES TOTAL PER COUNTED LEUKOCYTES BY MANUAL COUNT 5 Normal [facility] Comment on above: Performed By: #### Weston [id number], [id number] ####Senior Vice President & General Counsel: VELMA VALADEZ ([phone])[facility] ROS[place]ELA RITTMAN (SWRLAB)[address] [place] [address] [place] LYMPHOCYTES/100 LEUKOCYTES IN BLOOD BY MANUAL COUNT 5 % Low 15-45 [facility] Comment on above: Performed By: #### Weston [id number], [id number] ####Senior Vice President & General Counsel: VELMA VALADEZ ([phone])[facility] [place]ELA RIT[place] (SWRLAB)[address] [place] [address] [place] MONOCYTES (10*3/UL) IN BLOOD BY MANUAL COUNT 0.5 10*3/uL Normal 0.0-0.9 [facility] Comment on above: Performed By: #### L [id number], [id number] ####Senior Vice President & General Counsel: VELMA VALADEZ ([phone])[facility] ROS[place]ELA RITTMAN (SWRLAB)[address] [place] [address] [place] MONOCYTES TOTAL PER COUNTED LEUKOCYTES BY MANUAL COUNT 6 Normal [facility] Comment on above: Performed By: #### L [id number], [id number] ####Senior Vice President & General Counsel: VELMA VALADEZ ([phone])[facility] ROSANGELA RITTMAN (SWRLAB)[address] [place] [address] [place] MONOCYTES/100 LEUKOCYTES IN BLOOD BY MANUAL COUNT 6 % Normal 5-13 [facility] Comment on above: Performed By: #### L [id number], [id number] ####Senior Vice President & General Counsel: VELMA VALADEZ ([phone])[facility] ADAMES RITTMAN (SWRLAB)[address] [place] [address] [place] NEUTROPHILS (SEGS+BANDS) (10*3/UL) BY MANUAL COUNT 7.9 10*3/uL High 1.8-7.0 [facility] Comment on above: Performed By: #### L [id number], [id number] ####Senior Vice President & General Counsel: VELMA VALADEZ ([phone])[facility] ADAMES RIT[facility]AN (SWRLAB)[address] [place] [address] [place] NEUTROPHILS TOTAL PER COUNTED LEUKOCYTES BY MANUAL COUNT 87 Normal [facility] Comment on above: Performed By: #### L [id number], [id number] ####Senior Vice President & General Counsel: VELMA VALADEZ ([phone])[facility] ADAMES RITTMAN (SWRLAB)[address] [place] [address] [place] PLATELET MORPHOLOGY IN BLOOD Normal Normal [facility] Comment on above: Performed By: #### L [id number], [id number] ####Senior Vice President & General Counsel: VELMA VALADEZ ([phone])[facility] ADAMES RITTMAN (SWRLAB)[address] [place] [address] [place] RBC MORPHOLOGY IN BLOOD Normal Normal [facility] Comment on above: Performed By: #### L [id number], [id number] ####Senior Vice President & General Counsel: VELMA VALADEZ ([phone])[facility] SANCHEZROSANGELA RITTMAN (SWRLAB)[address] [place] [address] [place] SEGEMENTED NEUTROPHILS/100 LEUKOCYTES BY MANUAL COUNT 87 % High 38-82 [facility] Comment on above: Performed By: #### L [id number], [id number] ####Senior Vice President & General Counsel: VELMA VALADEZ ([phone])[facility] ROSANGELA RITTMAN (SWRLAB)[address] [place] [address] [place] UNCLASSIFIED CELLS (10*3/UL) IN BLOOD BY MANUAL COUNT 0.1 10*3/uL Normal [facility] Comment on above: Performed By: #### L [id number], [id number] ####Senior Vice President & General Counsel: VELMA VALADEZ ([phone])[facility] RITTMAN (SWRLAB)[address] UNCLASSIFIED CELLS/100 LEUKOCYTES IN BLOOD 1.00 % Normal [facility] Comment on above: Performed By: #### L [id number], [id number] ####Senior Vice President & General Counsel: VELMA VALADEZ ([phone])[facility] [employer] (SWRLAB)[address] [place] [address] [place] Magnesium [Mass/Vol]on 08-03 Higher values can be expected in females during menses. [facility] Manual differential performe d Ql (Bld)on 08-03-2024 Basophils (Bld) [#/Vol] 0 10*3/uL 0.0 - 0.2 10*3/uL [facility] Basophils Manual 0 [facility] alth Basophils/100 WBC (Bld) 0 % 0 - 2 % S [facility] Cells Counted Total (Bld) [#] 100 {cells} [facility] Differential Method Automated differenti al reported after [...] 0.5 10*3/uL Low 1.0 - 4.3 10*3/uL [facility] Lymphocytes Manual 5 [facility] Lymphocytes/100 WBC (Bld) 5 % Low 15 - 45 % [facility] Monocytes (Bld) [#/Vol] 0.5 10*3/uL 0.0 - 0.9 10*3/uL [facility] Monocytes Manual 6 [facility] alth Monocytes/100 WBC (Bld) 6 % 5 - 13 % [facility] Neutrophils (Bld) [#/Vol] 7.9 10*3/uL High 1.8 - 7.0 10*3/uL [facility] Neutrophils Manual 87 [facility] Platelet morphology finding Nom (Bld) Normal [facility] RBC morphology finding Nom (Bld) Normal [facility] Segmented neutrophils/100 WBC (Bld) 87 % High 38 - 82 % [facility] Unclassified Cells % 1 % [facility] Unclassified Cells, Abs. 0.1 10*3/uL [facility] WBC corrected for nucl RBC (Bld) [#/Vol] 9.1 10*3/uL 3.6 - 10.7 10*3/uL [facility] No Panel Informationon 08-03 Interpretation and review of laboratory results Normal [facility] Interpretation and review of laboratory results Abnormal [facility] Performed by: [facility], [address] [place] [address] CLIA ID: [id number] [facility] Interpretation and review of laboratory results Normal [facility] No Panel InformationOrdered By: Christin Mayes on 08-03-2024 Interpretation and review of laboratory results Abnormal [facility] SARS-COV-2, FLU A/B, AND RSV COMBOon 08-03-2024 SARS-CoV-2 (COVID-19) RNA OXANA+probe Ql (Unsp spec) Normal [facility] Comment on above: Performed By: #### L [id number] ####Senior Vice President & General Counsel: VELMA VALADEZ ([phone])[facility]ELA [place] (RLAB)[address] [place] [address] SARS-CoV-2, Flu A/B, and RSV Comboon 08-03-2024 Interpretation and review of laboratory results Normal [facility] XR Chest Single viewon 08-03 No acute abnormality Report Dictated on Electronically Signed By: Ming Fry MD Electronically Signed Date/Time: 08/03/2024 3:33 AM [facility] Patient Name: MEL [...] within the right humerus. No acute fracture. [facility] Ming Fry MD - 08/03/2024 Patient [...] Electronically Signed Date/Time: 08/03/2024 3:33 AM EST [facility] Radiology Study observation (narrative) [facility] alth XR Chest Single viewOrdered By: Ming Fry on 08-03-2024 [facility] Work Phone: ANES POSTPROC EVALon 025 ANES POSTPROC EVAL HNO ID: [id number] Author: ROBINSON BRUNNER MD Service: ? Author Type: Anesthesiologist Type: Anesthesia Postprocedure Evaluation Filed: 07/31/2024 12:48 Note Text: POST ANESTHESIA EVALUATION NOTE : 1940 Procedure Summary Date: 07/27/24 Room / Location: [place] [address] / [facility] Anesthesia Start: 1114 Anesthesia Stop: 1322 Procedures: VITRECTOMY 25G [facility] PARS PLANA APPROACH W/ REMOVAL OF [...] with this procedure. Documented by Mikhail Nichols APRN.PRETZEL COOKER 07/27/2024 1:22 PM EST SIGNATURE: Robinson Pizano MD PATIENT NAME: Mel Castillo DATE: July 31, 2024 TIME: 12:46 PM CSN: [id number] Normal [facility] ANES PRE-OPon 07-27-2024 ANES PRE-OP HNO ID: [id number] Author: ROBINSON BRUNNER MD Service: ? Author Type: Anesthesiologist Type: Anesthesia Preprocedure Evaluation Filed: 07/27/2024 11:10 Note Text: ANESTHESIOLOGY DAY OF SURGERY NOTE : 1940 Procedure Information Date/Time: 07/27/24 1110 Procedures: VITRECTOMY 25G [facility] PARS PLANA APPROACH W/ REMOVAL OF PRERETINAL CELLULAR MEMBRANE (Right: Eye) RELEASE OF VITREOUS, CHOROIDAL FLUID, PARS PLANA APPROACH (Right: Eye) Location: [place] [address] / [facility] Surgeons: Savana Lopez [...] and consent discussed: yes. Patient / Responsible Alliance Party agrees to proceed: yes Patient / [...] tiotropium 2.5 (more content not included)... Normal [facility] OPERATIVE NOon 07-27-2024 OPERATIVE NO HNO ID: [id number] Author: SAVANA LOPEZ MD Service: Ophthalmology Author Type: Physician Type: Operative Report Filed: 07/27/2024 13:20 Note Text: [place] [id number] [place] [facility] OPERATIVE REPORT LOG ID: [id number] Surgery/Procedure Date: 07/27/2024 Incision/Procedure Start Time: 11:39 AM Incision Close/Procedure End Time: 1:07 PM NAME: Mel Serna Pop [facility] #: [id number] SURGEON(S) AND HAND HARDENER(S): Surgeons and Role: Panel 1: * Savana [...] was repaired by the use of max orthopedic dentist forceps and vitreous cutter. This was a [...] times thro (more content not included)... Normal [facility] BSCAN OD (RIGHT EYE)on 07-24 [facility] Right eye Photo documentatio non 07-24-2024 [facility] BSCAN OD (RIGHT EYE)on 07-23 Radiology Study observation (narrative) [facility] Right eye Photo documentatio non 07-23-2024 Radiology Study observation (narrative) [facility] CASE MANAGEMon 07-18-2024 CASE MANAGEM HNO ID: [id number] Author: DOMINIQUE RAMSAY LSW Service: ? Author Type: Plastic Dolls Mold Filler Type: Care Mgt Progress Note Filed: 07/18/2024 11:21 Note Text: CARE MANAGEMENT DISCHARGE NOTE SERVICE DATE: July 18, 2024 SERVICE TIME: 11:19 AM Admission Date: 07/07/2024 LOS: 11 days Discharge Arrangement Discharge Arrangement: Jail Facility Services Arranged Medical Services: Other: See Comment (N/A) Caregiver Assessment Caregiver is ready, willing and able to meet the patient's needs as recommended by the inter-professional team: Yes Name of Caregiver: Rosangela Tomlin Transportation Arrangements Transportation Arrangements: Ambulance Transportation Agency and Phone #:: [facility] [phone] Date of Trip: 07/18/24 Time of Trip: 1100 Type of Service: BLS Non-emergency Handoff Communication: Handoff to: Primary Care Physician Primary Care Physician Name/Phone: Jared Evans Additional Information: Discharge Information Row Name Admission (Current) from 07/07/2024 in HOSP MAIN H060 Jail Facility Agency [facility]-[address] [place] [address] Patient d/c ready to [facility] via [facility] with waste picker scheduled for 11am today by Stretcher. Patient aware of plan. Bedside RN aware of plan and provided number to call report for nurse report; call [phone] :) Geriatric Assistant can transfer you to the 2nd floor. . 7000 and DC instructions sent to [facility] via [facility] and are in DC packet. DC packet in chart to go with patient. SIGNATURE: SHAQUILLE Garay PATIENT NAME: Mel Castillo DATE: July 18, 2024 TIME: 11:19 AM Normal [facility] CBC panel Auto (Bld)on 07-18 Erythrocyte distribution width (RBC) [Ratio] 17.5 % High 11.5-15.0 [facility] Comment on above: Order Comment: Speci men Type: BLOOD SPECIMEN Ordering Facility: [facility] Address: [address] [place] [address] Performed By: #### 5 8410-2 #### [facility] CLIA [id number] [address] [place] [address] [place] Hematocrit (Bld) [Volume fraction] 33.8 % Low 36.0-46.0 [facility] Comment on above: Order Comment: Speci men Type: BLOOD SPECIMEN Ordering Facility: [facility] Address: [address] [place] [address] Performed By: #### 5 8410-2 #### [facility] CLIA [id number] [address] [place] [address] [place] Hemoglobin (Bld) [Mass/Vol] 10.5 g/dL Low 11.5-15.5 [facility] Comment on above: Order Comment: Speci men Type: BLOOD SPECIMEN Ordering Facility: [facility] Address: [address] [place] [address] Performed By: #### 5 8410-2 #### [facility] CLIA [id number] [address] [place] [address] [place] MCH (RBC) [Entitic mass] 26.0 pg Normal 26.0-34.0 [facility] Comment on above: Order Comment: Speci men Type: BLOOD SPECIMEN Ordering Facility: [facility] Address: [address] [place] [address] Performed By: #### 5 8410-2 #### [facility] CLIA [id number] [address] [place] [address] [place] MCHC (RBC) [Mass/Vol] 31.1 g/dL Normal 30.5-36.0 [facility] Comment on above: Order Comment: Speci men Type: BLOOD SPECIMEN Ordering Facility: [facility] Address: [address] [place] [address] Performed By: #### 5 8410-2 #### [facility] CLIA [id number] [address] [place] [address] [place] MCV (RBC) [Entitic vol] 83.7 fL Normal 80.0-100.0 C [facility] Comment on above: Order Comment: Speci men Type: BLOOD SPECIMEN Ordering Facility: [facility] Address: [address] [place] [address] Performed By: #### 5 8410-2 #### [facility] CLIA [id number] [address] [place] [address] [place] Nucleated RBC (Bld) [#/Vol] 10*3/uL Normal <0.01 [facility] Comment on above: Order Comment: Speci men Type: BLOOD SPECIMEN Ordering Facility: [facility] Address: [address] [place] [address] Performed By: #### 5 8410-2 #### [facility] CLIA [id number] [address] [place] [address] [place] Platelet mean volume (Bld) [Entitic vol] 9.3 fL Normal 9.0-12.7 [facility] Comment on above: Order Comment: Speci men Type: BLOOD SPECIMEN Ordering Facility: [facility] Address: [address] [place] [address] Performed By: #### 5 8410-2 #### [facility] CLIA [id number] [address] [place] [address] [place] Platelets (Bld) [#/Vol] 386 10*3/uL Normal 150-400 [facility] Comment on above: Order Comment: Speci men Type: BLOOD SPECIMEN Ordering Facility: [facility] Address: [address] [place] [address] Performed By: #### 5 8410-2 #### [facility] CLIA [id number] [address] [place] [address] [place] RBC (Bld) [#/Vol] 4.04 10*6/uL Normal 3.90-5.20 [facility] Comment on above: Order Comment: Speci men Type: BLOOD SPECIMEN Ordering Facility: [facility] Address: [address] [place] [address] Performed By: #### 5 8410-2 #### [facility] CLIA [id number] [address] [place] [address] [place] WBC (Bld) [#/Vol] 10.81 10*3/uL Normal 3.70-11.00 [facility] Comment on above: Order Comment: Speci men Type: BLOOD SPECIMEN Ordering Facility: [facility] Address: [address] [place] [address] Performed By: #### 5 8410-2 #### [facility] CLIA [id number] [address] [place] [address] [place] CNDSon 07-18-2024 CNDS HNO ID: [id number] Author: BRIANA PRITCHARD MD Service: General Internal [...] May 2024 who presents to OSH from [facility] for further evaluation of R acute [...] hemorraghic cho (more content not included)... Normal [facility] Renal function 2000 panelon 07-18-2024 Albumin [Mass/Vol] 3.2 g/dL Low 3.9-4.9 [facility] Comment on above: Order Comment: Speci men Type: BLOOD SPECIMEN Ordering Facility: [facility] Address: [address] [place] [address] Performed By: #### 2 4362-6 #### [facility] CLIA [id number] [address] [place] [address] [place] Anion gap [Moles/Vol] 11 mmol/L Normal 8-15 [facility] Comment on above: Order Comment: Speci men Type: BLOOD SPECIMEN Ordering Facility: [facility] Address: [address] [place] [address] Performed By: #### 2 4362-6 #### [facility] CLIA [id number] [address] [place] [address] [place] Calcium [Mass/Vol] 9.3 mg/dL Normal 8.5-10.2 [facility] Comment on above: Order Comment: Speci men Type: BLOOD SPECIMEN Ordering Facility: [facility] Address: [address] [place] [address] Performed By: #### 2 4362-6 #### [facility] CLIA [id number] [address] [place] [address] [place] Chloride [Moles/Vol] 102 mmol/L Normal 98-107 [facility] Comment on above: Order Comment: Speci men Type: BLOOD SPECIMEN Ordering Facility: [facility] Address: [address] [place] [address] Performed By: #### 2 4362-6 #### [facility] CLIA [id number] [address] [place] [address] [place] CO2 [Moles/Vol] 25 mmol/L Normal 22-30 [facility] Comment on above: Order Comment: Speci men Type: BLOOD SPECIMEN Ordering Facility: [facility] Address: [address] [place] [address] Performed By: #### 2 4362-6 #### [facility] CLIA [id number] [address] [place] [address] [place] Creatinine [Mass/Vol] 0.90 mg/dL Normal 0.58-0.96 [facility] Comment on above: Order Comment: Speci men Type: BLOOD SPECIMEN Ordering Facility: [facility] Address: [address] [place] [address] Performed By: #### 2 4362-6 #### [facility] CLIA [id number] [address] [place] [address] [place] Creatinine and Glomerular filtration rate.predicted panel (S/P/Bld) 63 mL/min/1.73m??? Normal >=60 [facility] Comment on above: Order Comment: Speci men Type: BLOOD SPECIMEN Ordering Facility: [facility] Address: [address] [place] [address] Result Comment: Isa mated Glomerular Filtration Rate [...] GFR. Performed By: #### 2 4362-6 #### [facility] CLIA [id number] [address] [place] [address] [place] Glucose [Mass/Vol] 105 mg/dL High 74-99 [facility] Comment on above: Order Comment: Speci men Type: BLOOD SPECIMEN Ordering Facility: [facility] Address: [address] [place] [address] Result Comment: The [place] Diabetes Association (ADA) provides guidance for cutoff [...] Standards of Medical Care in Diabetes 2016, [place] [employer]. Diabetes Care. 2016.39(Suppl 1). Performed By: #### 2 4362-6 #### [facility] CLIA [id number] [address] [place] [address] [place] Phosphate [Mass/Vol] 3.0 mg/dL Normal 2.7-4.8 [facility] Comment on above: Order Comment: Speci men Type: BLOOD SPECIMEN Ordering Facility: [facility] Address: [address] [place] [address] Performed By: #### 2 4362-6 #### [facility] CLIA [id number] [address] [place] [address] [place] Potassium [Moles/Vol] 4.5 mmol/L Normal 3.7-5.1 [facility] Comment on above: Order Comment: Speci men Type: BLOOD SPECIMEN Ordering Facility: [facility] Address: [address] [place] [address] Performed By: #### 2 4362-6 #### [facility] CLIA [id number] [address] [place] [address] [place] Sodium [Moles/Vol] 138 mmol/L Normal 136-144 [facility] Comment on above: Order Comment: Speci men Type: BLOOD SPECIMEN Ordering Facility: [facility] Address: [address] [place] [address] Performed By: #### 2 4362-6 #### [facility] CLIA [id number] [address] [place] [address] [place] Urea nitrogen [Mass/Vol] 17 mg/dL Normal 7-21 [facility] Comment on above: Order Comment: Speci men Type: BLOOD SPECIMEN Ordering Facility: [facility] Address: [address] [place] [address] Performed By: #### 2 4362-6 #### [facility] CLIA [id number] [address] [place] [address] [place] CASE MANAGEMon 07-17-2024 CASE MANAGEM HNO ID: [id number] Author: ?, ?, ? Service: ? Author Type: ? Type: Care Mgt Progress Note Filed: 07/17/2024 14:07 Note Text: CARE MANAGEMENT PROGRESS NOTE SERVICE DATE: 07/17/2024 SERVICE TIME: 2:07 PM LOS: 10 days Discharge packet completed and dropped off by ambulance assistant Tamiko Holley. Packet is missing AVS/DC forms, please reach out to case investigator with any discharge related questions. SIGNATURE: Tamiko Holley PATIENT NAME: Mel Castillo DATE: July 17, 2024 TIME: 2:07 PM Normal [facility] CASE MANAGEM HNO ID: [id number] Author: DOMINIQUE RAMSAY LSW Service: ? Author Type: Plastic Dolls Mold Filler Type: Care Mgt Progress Note Filed: 07/17/2024 13:44 Note Text: CARE MANAGEMENT HOLIDAY PLANNING NOTE DISCHARGE OR POSSIBLE DISCHARGE Date/Time: 07/18 at 11am Disposition: Jail Facility - Precert Obtained: Yes Facility Name: [facility] Facility Phone #: Transport: Mode of Transportation: Ambulance Transportation Agency and Phone #: [facility] [phone] . Date of Trip: 07/18/2024 at 11am Other Concerns: 11 am DC via [facility] trip# #[id number] to take Pt to [facility]. Pre-cert is approved, a bed is available, and Pt is medically ready. 7000 has been tasked. DC packet has been tasked. DNR form is on green chart. Weekend Finish Molder Pager #: Please see Treatment Team for Care Management Weekend/Holiday coverage. SIGNATURE: SHAQUILLE Garay PATIENT NAME: Mel Castillo DATE: July 17, 2024 TIME: 1:42 PM PAGER/CONTACT #: [facility] CASE MANAGEM HNO ID: [id number] Author: BASILIA CAPPS, ? Service: ? Author Type: ? Type: Care Mgt Progress Note Filed: 07/17/2024 13:14 Note Text: [facility] PRECERT NOTE [employer] MEDICARE PPO approved Jail Facility for [facility] . Precert approved through 07/19/2024. For any additional questions regarding approvals, transport or care management needs, please contact the CM assigned to this patient in the Treatment Team. SIGNATURE: Basilia Capps DATE: July 17, 2024 TIME: 1:14 PM [facility] CASE MANAGEM HNO ID: [id number] Author: DOMINIQUE RAMSAY LSW Service: General Internal Medicine Author Type: Plastic Dolls Mold Filler Type: Care Mgt Progress Note Filed: 07/17/2024 11:29 Note Text: Attestation signed by Thomas Car DO at 07/17/2024 11:37 AM Thomas Car D.O. PGY-2 Internal Medicine Resident [facility] Click here to page July [...] problems. * Attending Physician: Briana Pritchard MD [facility] CBC panel Auto (Bld)on 07-17 Erythrocyte distribution width (RBC) [Ratio] 17.2 % High 11.5-15.0 [facility] Comment on above: Order Comment: Rhina mason Type: BLOOD SPECIMEN Ordering Facility: [facility] Address: [address] [place] [address] Performed By: #### 2 276-4 #### [facility] CLIA [id number] [address] [place] [address] [place] Hematocrit (Bld) [Volume fraction] 32.3 % Low 36.0-46.0 [facility] Comment on above: Order Comment: Rhina mason Type: BLOOD SPECIMEN Ordering Facility: [facility] Address: [address] [place] [address] Performed By: #### 2 276-4 #### [facility] IA [id number] [address] [place] [address] [place] Hemoglobin (Bld) [Mass/Vol] 10.2 g/dL Low 11.5-15.5 [facility] Comment on above: Order Comment: Speci men Type: BLOOD SPECIMEN Ordering Facility: [facility] Address: [address] [place] [address] Performed By: #### 2 276-4 #### [facility] CLIA [id number] [address] [place] [address] MCH (RBC) [Entitic mass] 26.5 pg Normal 26.0-34.0 [facility] Comment on above: Order Comment: Speci men Type: BLOOD SPECIMEN Ordering Facility: [facility] Address: [address] [place] [address] Performed By: #### 2 276-4 #### [facility] CLIA [id number] [address] [place] [address] [place] MCHC (RBC) [Mass/Vol] 31.6 g/dL Normal 30.5-36.0 [facility] Comment on above: Order Comment: Speci men Type: BLOOD SPECIMEN Ordering Facility: [facility] Address: [address] [place] [address] Performed By: #### 2 276-4 #### [facility] CLIA [id number] [address] [place] [address] [place] MCV (RBC) [Entitic vol] 83.9 fL Normal 80.0-100.0 C [facility] Comment on above: Order Comment: Speci men Type: BLOOD SPECIMEN Ordering Facility: [facility] Address: [address] [place] [address] Performed By: #### 2 276-4 #### [facility] CLIA [id number] [address] [place] [address] [place] Nucleated RBC (Bld) [#/Vol] 10*3/uL Normal <0.01 [facility] Comment on above: Order Comment: Speci men Type: BLOOD SPECIMEN Ordering Facility: [facility] Address: [address] [place] [address] Performed By: #### 2 276-4 #### [facility] CLIA [id number] [address] [place] [address] [place] Platelet mean volume (Bld) [Entitic vol] 9.7 fL Normal 9.0-12.7 [facility] Comment on above: Order Comment: Speci men Type: BLOOD SPECIMEN Ordering Facility: [facility] Address: [address] [place] [address] Performed By: #### 2 276-4 #### [facility] CLIA [id number] [address] [place] [address] [place] Platelets (Bld) [#/Vol] 362 10*3/uL Normal 150-400 [facility] Comment on above: Order Comment: Speci men Type: BLOOD SPECIMEN Ordering Facility: [facility] Address: [address] [place] [address] Performed By: #### 2 276-4 #### [facility] CLIA [id number] [address] [place] [address] [place] RBC (Bld) [#/Vol] 3.85 10*6/uL Low 3.90-5.20 [facility] Comment on above: Order Comment: Speci men Type: BLOOD SPECIMEN Ordering Facility: [facility] Address: [address] [place] [address] Performed By: #### 2 276-4 #### [facility] CLIA [id number] [address] [place] [address] [place] WBC (Bld) [#/Vol] 9.41 10*3/uL Normal 3.70-11.00 [facility] Comment on above: Order Comment: Speci men Type: BLOOD SPECIMEN Ordering Facility: [facility] Address: [address] [place] [address] Performed By: #### 2 276-4 #### [facility] CLIA [id number] [address] [place] [address] [place] Renal function 2000 panelon 07-17-2024 Albumin [Mass/Vol] 3.3 g/dL Low 3.9-4.9 [facility] Comment on above: Order Comment: Speci men Type: BLOOD SPECIMENOrdering Facility: [facility] Address: [address] [place], [place] [address] Performed By: #### 2 4362-6 ####[facility] [id number] [place] [address] [place] Anion gap [Moles/Vol] 10 mmol/L Normal 8-15 [facility] Comment on above: Order Comment: Speci men Type: BLOOD SPECIMENOrdering Facility: [facility] Address: [address] [place] [address] Performed By: #### 2 4362-6 ####[facility] [id number] [place] [address] [place] Calcium [Mass/Vol] 9.0 mg/dL Normal 8.5-10.2 [facility] Comment on above: Order Comment: Speci men Type: BLOOD SPECIMENOrdering Facility: [facility] Address: [address] [place] [address] Performed By: #### 2 4362-6 ####[facility] [id number] [place] [address] [place] Chloride [Moles/Vol] 101 mmol/L Normal 98-107 [facility] Comment on above: Order Comment: Speci men Type: BLOOD SPECIMENOrdering Facility: [facility] Address: [address] [place], [place] [address] Performed By: #### 2 4362-6 ####[facility] [id number] [place] [address] [place] CO2 [Moles/Vol] 25 mmol/L Normal 22-30 [facility] Comment on above: Order Comment: Speci men Type: BLOOD SPECIMENOrdering Facility: [facility] Address: [address] [place], [place] [address] Performed By: #### 2 4362-6 ####[facility] [id number] [place] [address] [place] Creatinine [Mass/Vol] 0.94 mg/dL Normal 0.58-0.96 [facility] Comment on above: Order Comment: Rhina mason Type: BLOOD SPECIMENOrdering Facility: [facility] Address: [address] [place] [address] Performed By: #### 2 4362-6 ####[facility] [id number] [place] [address] [place] Creatinine and Glomerular filtration rate.predicted panel (S/P/Bld) 60 mL/min/1.73m??? Normal >=60 [facility] Comment on above: Order Comment: Rhina mason Type: BLOOD SPECIMENOrdering Facility: [facility] Address: [address] [place] [address] Result Comment: Isa mated Glomerular Filtration Rate [...] actual GFR. Performed By: #### 2 4362-6 ####[facility] [id number] [place] [address] [place] Glucose [Mass/Vol] 112 mg/dL High 74-99 [facility] Comment on above: Order Comment: Rhina mason Type: BLOOD SPECIMENOrdering Facility: [facility] Address: [address] [place] [address] Result Comment: The [place] Diabetes Association (ADA) provides guidance for cutoff [...] Standards of Medical Care in Diabetes 2016, [place] [employer] Association. Diabetes Care. 2016.39(Suppl 1). Performed By: #### 2 4362-6 ####[facility] [id number] [place] [address] [place] Phosphate [Mass/Vol] 2.2 mg/dL Low 2.7-4.8 [facility] Comment on above: Order Comment: Speci men Type: BLOOD SPECIMENOrdering Facility: [facility] Address: [address] [place] [address] Performed By: #### 2 4362-6 ####[facility] [id number] [place] [address] [place] Potassium [Moles/Vol] 4.6 mmol/L Normal 3.7-5.1 [facility] Comment on above: Order Comment: Speci men Type: BLOOD SPECIMENOrdering Facility: [facility] Address: [address] [place] [address] Performed By: #### 2 4362-6 ####[facility] [id number] [place] [address] [place] Sodium [Moles/Vol] 136 mmol/L Normal 136-144 [facility] Comment on above: Order Comment: Speci men Type: BLOOD SPECIMENOrdering Facility: [facility] Address: [address] [place] [address] Performed By: #### 2 4362-6 ####[facility] [id number] [place] [address] [place] Urea nitrogen [Mass/Vol] 20 mg/dL Normal 7-21 [facility] Comment on above: Order Comment: Speci men Type: BLOOD SPECIMENOrdering Facility: [facility] Address: [address] [place] [address] Performed By: #### 2 4362-6 ####[facility] [id number] CHARLIEIsidoro [facility] [id number] [place] [address] [place] THERAPY NTon 07-17-2024 THERAPY NT HNO ID: [id number] Author: SANTIAGO GUZMAN, OT/L Service: Occupational Therapy Author Type: Occupational Therapist Type: Therapy (PT/OT/Speech/Resp) Filed: 07/17/2024 15:14 Note Text: Occupational Therapy Treatment Summary SERVICE DATE: 07/17/2024 SERVICE TIME: 1425 to 1504 ROOM: [place] [address] OT 6 Clicks Score: 15 DISCHARGE RECOMMENDATIONS [...] Weakness (generalized) TREATMENT INTERVENTIONS Self Longterm Management (37281) Timed Code Treatment (minutes): 39 Skilled Treatment [...] Sit to Stand, Standing Balance to Improve [place] with ADLs/Self-Care, Sitting Balance to Improve [place] with ADLs/Self-Care, Life Roles/Routines/Habits THERAPEUTIC SKILLS USED [...] to Sit Contact Guard Assistance Bed to [facility] (more content not included)... Normal [facility] THERAPY NT HNO ID: [id number] Author: GABRIELLA DALEY, PT Service: Physical Therapy Author Type: Physical Therapist Type: Therapy (PT/OT/Speech/Resp) Filed: 07/17/2024 09:31 Note Text: Physical Therapy Evaluation Summary SERVICE DATE: 07/17/2024 SERVICE TIME: 832 to 911 ROOM: [place] [address] PT 6 Clicks Score: 18 DISCHARGE RECOMMENDATIONS [...] DIAGNOSIS Reduced mobility-other TREATMENT INTERVENTIONS $ Evaluation-Moderate (09564) Billed Units: 1 unit Therapeutic Activity (48391) Treatment Minutes: 10 $ Therapeutic Activity (04332) Billed Units: 1 unit Gait Training (79693) Treatment Minutes: 14 $ Gait Training (23549) Billed Units: 1 unit Evaluation, Therapeutic Activity (87948), Gait Training (50147) Timed Code Treatment (minutes): 24 Skilled Treatment [...] Conservation Training, (more content not included)... Normal [facility] BSCAN OD (RIGHT EYE)on 07-16 [facility] Radiology Study observation (narrative) [facility] CBC panel Auto (Bld)on 07-16 Erythrocyte distribution width (RBC) [Ratio] 17.8 % High 11.5-15.0 [facility] Comment on above: Order Comment: Speci men Type: BLOOD SPECIMEN Ordering Facility: [facility] Address: [address] [place] [address] Performed By: #### 5 8410-2 #### [facility] CLIA [id number] [address] [place] [address] [place] Hematocrit (Bld) [Volume fraction] 33.2 % Low 36.0-46.0 [facility] Comment on above: Order Comment: Speci men Type: BLOOD SPECIMEN Ordering Facility: [facility] Address: [address] [place] [address] Performed By: #### 5 8410-2 #### [facility] CLIA [id number] [address] [place] [address] [place] Hemoglobin (Bld) [Mass/Vol] 10.3 g/dL Low 11.5-15.5 [facility] Comment on above: Order Comment: Speci men Type: BLOOD SPECIMEN Ordering Facility: [facility] Address: [address] [place] [address] Performed By: #### 5 8410-2 #### [facility] CLIA [id number] [address] [place] [address] [place] MCH (RBC) [Entitic mass] 25.6 pg Low 26.0-34.0 [facility] Comment on above: Order Comment: Speci men Type: BLOOD SPECIMEN Ordering Facility: [facility] Address: [address] [place] [address] Performed By: #### 5 8410-2 #### [facility] CLIA [id number] [address] [place] [address] [place] MCHC (RBC) [Mass/Vol] 31.0 g/dL Normal 30.5-36.0 [facility] Comment on above: Order Comment: Speci men Type: BLOOD SPECIMEN Ordering Facility: [facility] Address: [address] [place] [address] Performed By: #### 5 8410-2 #### [facility] CLIA [id number] [address] [place] [address] [place] MCV (RBC) [Entitic vol] 82.4 fL Normal 80.0-100.0 C [facility] Comment on above: Order Comment: Speci men Type: BLOOD SPECIMEN Ordering Facility: [facility] Address: [address] [place] [address] Performed By: #### 5 8410-2 #### [facility] CLIA [id number] [address] [place] [address] [place] Nucleated RBC (Bld) [#/Vol] 10*3/uL Normal <0.01 [facility] Comment on above: Order Comment: Speci men Type: BLOOD SPECIMEN Ordering Facility: [facility] Address: [address] [place] [address] Performed By: #### 5 8410-2 #### [facility] CLIA [id number] [address] [place] [address] [place] Platelet mean volume (Bld) [Entitic vol] 9.8 fL Normal 9.0-12.7 [facility] Comment on above: Order Comment: Speci men Type: BLOOD SPECIMEN Ordering Facility: [facility] Address: [address] [place] [address] Performed By: #### 5 8410-2 #### [facility] CLIA [id number] [address] [place] [address] [place] Platelets (Bld) [#/Vol] 348 10*3/uL Normal 150-400 [facility] Comment on above: Order Comment: Speci men Type: BLOOD SPECIMEN Ordering Facility: [facility] Address: [address] [place] [address] Performed By: #### 5 8410-2 #### [facility] CLIA [id number] [address] [place] [address] [place] RBC (Bld) [#/Vol] 4.03 10*6/uL Normal 3.90-5.20 [facility] Comment on above: Order Comment: Speci men Type: BLOOD SPECIMEN Ordering Facility: [facility] Address: [address] [place] [address] Performed By: #### 5 8410-2 #### [facility] CLIA [id number] [address] [place] [address] [place] WBC (Bld) [#/Vol] 11.15 10*3/uL High 3.70-11.00 [facility] Comment on above: Order Comment: Speci men Type: BLOOD SPECIMEN Ordering Facility: [facility] Address: [address] [place] [address] Performed By: #### 5 8410-2 #### [facility] CLIA [id number] [address] [place] [address] [place] FUNDUS PHOTOS OU (BOTH EYES) on 07-16-2024 [facility] Radiology Study observation (narrative) [facility] Renal function 2000 panelon 07-16-2024 Albumin [Mass/Vol] 3.1 g/dL Low 3.9-4.9 [facility] Comment on above: Order Comment: Speci men Type: BLOOD SPECIMENOrdering Facility: [facility] Address: [address] [place] [address] Performed By: #### 2 4362-6 ####[facility] [id number] [place] [address] [place] Anion gap [Moles/Vol] 12 mmol/L Normal 8-15 [facility] Comment on above: Order Comment: Speci men Type: BLOOD SPECIMENOrdering Facility: [facility] Address: [address] [id number] Performed By: #### 2 4362-6 ####[facility] [id number] [place] [address] [place] Calcium [Mass/Vol] 9.0 mg/dL Normal 8.5-10.2 [facility] Comment on above: Order Comment: Speci men Type: BLOOD SPECIMENOrdering Facility: [facility] Address: [address] [place] [address] Performed By: #### 2 4362-6 ####[facility] [id number] [place] [address] [place] Chloride [Moles/Vol] 103 mmol/L Normal 98-107 [facility] Comment on above: Order Comment: Speci men Type: BLOOD SPECIMENOrdering Facility: [facility] Address: [address] [place] [address] Performed By: #### 2 4362-6 ####[facility] [id number] [place] [address] [place] CO2 [Moles/Vol] 23 mmol/L Normal 22-30 [facility] Comment on above: Order Comment: Speci men Type: BLOOD SPECIMENOrdering Facility: [facility] Address: [address] [place], [place] [address] Performed By: #### 2 4362-6 ####[facility] [id number] [place] [address] [place] Creatinine [Mass/Vol] 1.09 mg/dL High 0.58-0.96 [facility] Comment on above: Order Comment: Speci men Type: BLOOD SPECIMENOrdering Facility: [facility] Address: [address] [place], [place] [address] Performed By: #### 2 4362-6 ####[facility] [id number] [place] [address] [place] Creatinine and Glomerular filtration rate.predicted panel (S/P/Bld) 50 mL/min/1.73m??? Low >=60 [facility] Comment on above: Order Comment: Rhina mason Type: BLOOD SPECIMENOrdering Facility: [facility] Address: [address] [place] [address] Result Comment: Isa mated Glomerular Filtration Rate [...] actual GFR. Performed By: #### 2 4362-6 ####[facility] [id number] [place] [address] [place] Glucose [Mass/Vol] 103 mg/dL High 74-99 [facility] Comment on above: Order Comment: Rhina mason Type: BLOOD SPECIMENOrdering Facility: [facility] Address: [address] [place] [address] Result Comment: The [place] [employer] (ADA) provides guidance for cutoff [...] Standards of Medical Care in Diabetes 2016, [place] [employer]. Diabetes Care. 2016.39(Suppl 1). Performed By: #### 2 4362-6 ####[facility] [id number] [place] [address] [place] Phosphate [Mass/Vol] 2.9 mg/dL Normal 2.7-4.8 [facility] Comment on above: Order Comment: Speci men Type: BLOOD SPECIMENOrdering Facility: [facility] Address: [address] [place] [address] Performed By: #### 2 4362-6 ####[facility] [id number] [place] [address] [place] Potassium [Moles/Vol] 4.5 mmol/L Normal 3.7-5.1 [facility] Comment on above: Order Comment: Speci men Type: BLOOD SPECIMENOrdering Facility: [facility] Address: [address] [place] [address] Performed By: #### 2 4362-6 ####[facility] [id number] [place] [address] [place] Sodium [Moles/Vol] 138 mmol/L Normal 136-144 [facility] Comment on above: Order Comment: Speci men Type: BLOOD SPECIMENOrdering Facility: [facility] Address: [address] [place] [address] Performed By: #### 2 4362-6 ####[facility] [id number] [place] [address] [place] Urea nitrogen [Mass/Vol] 22 mg/dL High 7-21 [facility] Comment on above: Order Comment: Speci men Type: BLOOD SPECIMENOrdering Facility: [facility] Address: [address] [place] [address] Performed By: #### 2 4362-6 ####[facility] [id number] [place] [address] [place] THERAPY NTon 07-16-2024 THERAPY NT HNO ID: [id number] Author: SANTIAGO GUZMAN, OT/L Service: Occupational Therapy Author Type: Occupational Therapist Type: Therapy (PT/OT/Speech/Resp) Filed: 07/16/2024 15:10 Note Text: Occupational Therapy Treatment Summary SERVICE DATE: 07/16/2024 SERVICE TIME: 1415 to 1500 ROOM: [place] [address] OT 6 Clicks Score: 15 DISCHARGE RECOMMENDATIONS [...] Weakness (generalized) TREATMENT INTERVENTIONS Self Longterm Management (71226) Timed Code Treatment (minutes): 45 Skilled Treatment [...] Sit to Stand, Standing Balance to Improve [place] with ADLs/Self-Care, Sitting Balance to Improve [place] with ADLs/Self-Care, Life Roles/Routines/Habits THERAPEUTIC SKILLS USED [...] Assistance Sit (more content not included)... Normal [facility] CBC panel Auto (Bld)on 07-15 Erythrocyte distribution width (RBC) [Ratio] 17.8 % High 11.5-15.0 [facility] Comment on above: Order Comment: Speci men Type: BLOOD SPECIMEN Ordering Facility: [facility] Address: [address] [place] [address] Performed By: #### 2 4362-6 #### [facility] CLIA [id number] [address] [place] [address] [place] Hematocrit (Bld) [Volume fraction] 34.4 % Low 36.0-46.0 [facility] Comment on above: Order Comment: Speci men Type: BLOOD SPECIMEN Ordering Facility: [facility] Address: [address] [place] [address] Performed By: #### 2 4362-6 #### [facility] CLIA [id number] [address] [place] [address] [place] Hemoglobin (Bld) [Mass/Vol] 10.7 g/dL Low 11.5-15.5 [facility] Comment on above: Order Comment: Speci men Type: BLOOD SPECIMEN Ordering Facility: [facility] Address: [address] [place] [address] Performed By: #### 2 4362-6 #### [facility] CLIA [id number] [address] [place] [address] [place] MCH (RBC) [Entitic mass] 26.2 pg Normal 26.0-34.0 [facility] Comment on above: Order Comment: Speci men Type: BLOOD SPECIMEN Ordering Facility: [facility] Address: [address] [place] [address] Performed By: #### 2 4362-6 #### [facility] CLIA [id number] [address] [place] [address] [place] MCHC (RBC) [Mass/Vol] 31.1 g/dL Normal 30.5-36.0 [facility] Comment on above: Order Comment: Speci men Type: BLOOD SPECIMEN Ordering Facility: [facility] Address: [address] [place] [address] Performed By: #### 2 4362-6 #### [facility] CLIA [id number] [address] [place] [address] [place] MCV (RBC) [Entitic vol] 84.1 fL Normal 80.0-100.0 C [facility] Comment on above: Order Comment: Speci men Type: BLOOD SPECIMEN Ordering Facility: [facility] Address: [address] [place] [address] Performed By: #### 2 4362-6 #### [facility] CLIA [id number] [address] [place] [address] [place] Nucleated RBC (Bld) [#/Vol] 10*3/uL Normal <0.01 [facility] Comment on above: Order Comment: Speci men Type: BLOOD SPECIMEN Ordering Facility: [facility] Address: [address] [place] [address] Performed By: #### 2 4362-6 #### [facility] CLIA [id number] [address] [place] [address] [place] Platelet mean volume (Bld) [Entitic vol] 10.1 fL Normal 9.0-12.7 [facility] Comment on above: Order Comment: Speci men Type: BLOOD SPECIMEN Ordering Facility: [facility] Address: [address] [place] [address] Performed By: #### 2 4362-6 #### [facility] CLIA [id number] [address] [place] [address] [place] Platelets (Bld) [#/Vol] 386 10*3/uL Normal 150-400 [facility] Comment on above: Order Comment: Speci men Type: BLOOD SPECIMEN Ordering Facility: [facility] Address: [address] [place] [address] Performed By: #### 2 4362-6 #### [facility] CLIA [id number] [address] [place] [address] [place] RBC (Bld) [#/Vol] 4.09 10*6/uL Normal 3.90-5.20 [facility] Comment on above: Order Comment: Speci men Type: BLOOD SPECIMEN Ordering Facility: [facility] Address: [address] [place] [address] Performed By: #### 2 4362-6 #### [facility] CLIA [id number] [address] [place] [address] [place] WBC (Bld) [#/Vol] 10.20 10*3/uL Normal 3.70-11.00 [facility] Comment on above: Order Comment: Speci men Type: BLOOD SPECIMEN Ordering Facility: [facility] Address: [address] [place], [place] [address] Performed By: #### 2 4362-6 #### [facility] CLIA [id number] [address] [place] [address] [place] Renal function 2000 panelon 07-15-2024 Albumin [Mass/Vol] 3.5 g/dL Low 3.9-4.9 [facility] Comment on above: Order Comment: Speci men Type: BLOOD SPECIMENOrdering Facility: [facility] Address: [address] [place] [address] Performed By: #### 2 4362-6 ####[facility] [id number] [place] [address] [place] Anion gap [Moles/Vol] 12 mmol/L Normal 8-15 [facility] Comment on above: Order Comment: Speci men Type: BLOOD SPECIMENOrdering Facility: [facility] Address: [address] [place] [address] Performed By: #### 2 4362-6 ####[facility] [id number] [place] [address] [place] Calcium [Mass/Vol] 9.1 mg/dL Normal 8.5-10.2 [facility] Comment on above: Order Comment: Speci men Type: BLOOD SPECIMENOrdering Facility: [facility] Address: [address] [place] [address] Performed By: #### 2 4362-6 ####[facility] [id number] [place] [address] [place] Chloride [Moles/Vol] 101 mmol/L Normal 98-107 [facility] Comment on above: Order Comment: Speci men Type: BLOOD SPECIMENOrdering Facility: [facility] Address: [address] [place] [address] Performed By: #### 2 4362-6 ####[facility] [id number] [place] [address] [place] CO2 [Moles/Vol] 24 mmol/L Normal 22-30 [facility] Comment on above: Order Comment: Speci men Type: BLOOD SPECIMENOrdering Facility: [facility] Address: [address] [place] [address] Performed By: #### 2 4362-6 ####[facility] [id number] [place] [address] [place] Creatinine [Mass/Vol] 0.96 mg/dL Normal 0.58-0.96 [facility] Comment on above: Order Comment: Speci men Type: BLOOD SPECIMENOrdering Facility: [facility] Address: [address] [place] [address] Performed By: #### 2 4362-6 ####[facility] [id number] [place] [address] [place] Creatinine and Glomerular filtration rate.predicted panel (S/P/Bld) 58 mL/min/1.73m??? Low >=60 [facility] Comment on above: Order Comment: Speci men Type: BLOOD SPECIMENOrdering Facility: [facility] Address: [address] [place] [address] Result Comment: Isa mated Glomerular Filtration Rate [...] actual GFR. Performed By: #### 2 4362-6 ####[facility] [id number] [address] [address] [place] Glucose [Mass/Vol] 93 mg/dL Normal 74-99 [facility] Comment on above: Order Comment: Speci men Type: BLOOD SPECIMENOrdering Facility: [facility] Address: [address] [place] [address] Result Comment: The [place] [employer] (ADA) provides guidance for cutoff [...] Standards of Medical Care in Diabetes 2016, [place] [employer]. Diabetes Care. 2016.39(Suppl 1). Performed By: #### 2 4362-6 ####[facility] [id number] [place] [address] [place] Phosphate [Mass/Vol] 3.1 mg/dL Normal 2.7-4.8 [facility] Comment on above: Order Comment: Samiri men Type: BLOOD SPECIMENOrdering Facility: [facility] Address: [address] [address] Performed By: #### 2 4362-6 ####[facility] [id number] [address] [address] [place] Potassium [Moles/Vol] 4.3 mmol/L Normal 3.7-5.1 [facility] Comment on above: Order Comment: Speci men Type: BLOOD SPECIMENOrdering Facility: [facility] Address: [address] [place] [address] Performed By: #### 2 4362-6 ####[facility] [id number] [place] [address] [place] Sodium [Moles/Vol] 137 mmol/L Normal 136-144 [facility] Comment on above: Order Comment: Speci men Type: BLOOD SPECIMENOrdering Facility: [facility] Address: [address] [place] [address] Performed By: #### 2 4362-6 ####[facility] [id number] [place] [address] [place] Urea nitrogen [Mass/Vol] 19 mg/dL Normal 7-21 [facility] Comment on above: Order Comment: Speci men Type: BLOOD SPECIMENOrdering Facility: [facility] Address: [address] [place] [address] Performed By: #### 2 4362-6 ####[facility] [id number] [place] [address] [place] CBC panel Auto (Bld)on 07-14 Erythrocyte distribution width (RBC) [Ratio] 17.9 % High 11.5-15.0 [facility] Comment on above: Order Comment: Speci men Type: BLOOD SPECIMEN Ordering Facility: [facility] Address: [address] [place] [address] Performed By: #### 2 4362-6 #### [facility] CLIA [id number] [address] [place] [address] [place] Hematocrit (Bld) [Volume fraction] 33.8 % Low 36.0-46.0 [facility] Comment on above: Order Comment: Speci men Type: BLOOD SPECIMEN Ordering Facility: [facility] Address: [address] [place] [address] Performed By: #### 2 4362-6 #### [facility] CLIA [id number] [address] [place] [address] [place] Hemoglobin (Bld) [Mass/Vol] 10.7 g/dL Low 11.5-15.5 [facility] Comment on above: Order Comment: Speci men Type: BLOOD SPECIMEN Ordering Facility: [facility] Address: [address] [place] [address] Performed By: #### 2 4362-6 #### [facility] CLIA [id number] [address] [place] [address] [place] MCH (RBC) [Entitic mass] 26.4 pg Normal 26.0-34.0 [facility] Comment on above: Order Comment: Speci men Type: BLOOD SPECIMEN Ordering Facility: [facility] Address: [address] [place] [address] Performed By: #### 2 4362-6 #### [facility] CLIA [id number] [address] [place] [address] [place] MCHC (RBC) [Mass/Vol] 31.7 g/dL Normal 30.5-36.0 [facility] Comment on above: Order Comment: Speci men Type: BLOOD SPECIMEN Ordering Facility: [facility] Address: [address] [place] [address] Performed By: #### 2 4362-6 #### [facility] CLIA [id number] [address] [place] [address] [place] MCV (RBC) [Entitic vol] 83.5 fL Normal 80.0-100.0 C [facility] Comment on above: Order Comment: Speci men Type: BLOOD SPECIMEN Ordering Facility: [facility] Address: [address] [place] [address] Performed By: #### 2 4362-6 #### [facility] CLIA [id number] [address] [place] [address] [place] Nucleated RBC (Bld) [#/Vol] 10*3/uL Normal <0.01 [facility] Comment on above: Order Comment: Speci men Type: BLOOD SPECIMEN Ordering Facility: [facility] Address: [address] [place] [address] Performed By: #### 2 4362-6 #### [facility] CLIA [id number] [address] [place] [address] [place] Platelet mean volume (Bld) [Entitic vol] 10.3 fL Normal 9.0-12.7 [facility] Comment on above: Order Comment: Speci men Type: BLOOD SPECIMEN Ordering Facility: [facility] Address: [address] [place] [address] Performed By: #### 2 4362-6 #### [facility] CLIA [id number] [address] [place] [address] [place] Platelets (Bld) [#/Vol] 345 10*3/uL Normal 150-400 [facility] Comment on above: Order Comment: Speci men Type: BLOOD SPECIMEN Ordering Facility: [facility] Address: [address] [place] [address] Performed By: #### 2 4362-6 #### [facility] CLIA [id number] [address] [place] [address] [place] RBC (Bld) [#/Vol] 4.05 10*6/uL Normal 3.90-5.20 [facility] Comment on above: Order Comment: Speci men Type: BLOOD SPECIMEN Ordering Facility: [facility] Address: [address] [place] [address] Performed By: #### 2 4362-6 #### [facility] CLIA [id number] [address] [place] [address] [place] WBC (Bld) [#/Vol] 11.07 10*3/uL High 3.70-11.00 [facility] Comment on above: Order Comment: Speci men Type: BLOOD SPECIMEN Ordering Facility: [facility] Address: [address] [place] [address] Performed By: #### 2 4362-6 #### [facility] CLIA [id number] [address] [place] [address] [place] Renal function 2000 panelon 07-14-2024 Albumin [Mass/Vol] 3.5 g/dL Low 3.9-4.9 [facility] Comment on above: Order Comment: Speci men Type: BLOOD SPECIMEN Ordering Facility: [facility] Address: [address] [place] [address] Performed By: #### 2 4362-6 #### [facility] CLIA [id number] [address] [place] [address] [place] Anion gap [Moles/Vol] 14 mmol/L Normal 8-15 [facility] Comment on above: Order Comment: Speci men Type: BLOOD SPECIMEN Ordering Facility: [facility] Address: [address] [place] [address] Performed By: #### 2 4362-6 #### [facility] CLIA [id number] [address] [place] [address] [place] Calcium [Mass/Vol] 9.1 mg/dL Normal 8.5-10.2 [facility] Comment on above: Order Comment: Speci men Type: BLOOD SPECIMEN Ordering Facility: [facility] Address: [address] [place] [address] Performed By: #### 2 4362-6 #### [facility] CLIA [id number] [address] [place] [address] [place] Chloride [Moles/Vol] 98 mmol/L Normal 98-107 [facility] Comment on above: Order Comment: Speci men Type: BLOOD SPECIMEN Ordering Facility: [facility] Address: [address] [place] [address] Performed By: #### 2 4362-6 #### [facility] CLIA [id number] [address] [place] [address] [place] CO2 [Moles/Vol] 22 mmol/L Normal 22-30 [facility] Comment on above: Order Comment: Speci men Type: BLOOD SPECIMEN Ordering Facility: [facility] Address: [address] [place] [address] Performed By: #### 2 4362-6 #### [facility] CLIA [id number] [address] [place] [address] [place] Creatinine [Mass/Vol] 1.01 mg/dL High 0.58-0.96 [facility] Comment on above: Order Comment: Speci men Type: BLOOD SPECIMEN Ordering Facility: [facility] Address: [address] [place] [address] Performed By: #### 2 4362-6 #### [facility] IA [id number] [address] [place] [address] [place] Creatinine and Glomerular filtration rate.predicted panel (S/P/Bld) 55 mL/min/1.73m??? Low >=60 [facility] Comment on above: Order Comment: Speci men Type: BLOOD SPECIMEN Ordering Facility: [facility] Address: [address] [place] [address] Result Comment: Isa mated Glomerular Filtration Rate [...] GFR. Performed By: #### 2 4362-6 #### [facility] CLIA [id number] [address] [place] [address] [place] Glucose [Mass/Vol] 131 mg/dL High 74-99 [facility] Comment on above: Order Comment: Speci men Type: BLOOD SPECIMEN Ordering Facility: [facility] Address: [address] [id number] Result Comment: The [place] Diabetes Association (ADA) provides guidance for cutoff [...] Standards of Medical Care in Diabetes 2016, [place] [employer]. Diabetes Care. 2016.39(Suppl 1). Performed By: #### 2 4362-6 #### [facility] CLIA [id number] [address] [place] [address] [place] Phosphate [Mass/Vol] 3.5 mg/dL Normal 2.7-4.8 [facility] Comment on above: Order Comment: Speci men Type: BLOOD SPECIMEN Ordering Facility: [facility] Address: [address] [place] [address] Performed By: #### 2 4362-6 #### [facility] CLIA [id number] [address] [place] [address] [place] Potassium [Moles/Vol] 4.1 mmol/L Normal 3.7-5.1 [facility] Comment on above: Order Comment: Speci men Type: BLOOD SPECIMEN Ordering Facility: [facility] Address: [address] [place] [address] Performed By: #### 2 4362-6 #### [facility] CLIA [id number] [address] [place] [address] [place] Sodium [Moles/Vol] 134 mmol/L Low 136-144 [facility] Comment on above: Order Comment: Speci men Type: BLOOD SPECIMEN Ordering Facility: [facility] Address: [address] [place] [address] Performed By: #### 2 4362-6 #### [facility] CLIA [id number] [address] [place] [address] [place] Urea nitrogen [Mass/Vol] 19 mg/dL Normal 7-21 [facility] Comment on above: Order Comment: Speci men Type: BLOOD SPECIMEN Ordering Facility: [facility] Address: [address] [place] [address] Performed By: #### 2 4362-6 #### [facility] CLIA [id number] [facility] [place] [address] [place] ANES POSTPROC EVALon 024 ANES POSTPROC EVAL HNO ID: [id number] Author: SIERRA FALK MD Service: ? Author Type: Anesthesiologist Type: Anesthesia Postprocedure Evaluation Filed: 07/13/2024 15:57 Note Text: POST ANESTHESIA EVALUATION NOTE : 1940 Procedure Summary Date: 07/13/24 Room / Location: [address] Anesthesia Start: 1222 Anesthesia Stop: 1337 [...] July 13, 2024 TIME: 3:57 PM CSN: [id number] Normal [facility] ANES PRE-OPon 07-13-2024 ANES PRE-OP HNO ID: [id number] Author: SIERRA FALK MD Service: ? Author Type: Anesthesiologist Type: Anesthesia Preprocedure Evaluation Filed: 07/13/2024 09:44 Note Text: ANESTHESIOLOGY DAY OF SURGERY NOTE : 1940 Procedure Information Date/Time: 07/13/241403 Procedure: ASPIRATION VITREOUS, CHOROIDAL FLUID, PARS PLANA APPROACH (Right: Eye) Location: [place] [address] / [facility] Surgeons: Savana Lopez [...] and consent discussed: yes. Patient / Responsible Alliance Party agrees to proceed: yes Patient / [...] 0.5 tablets by mouth every 12 hours. dykebgklnno-bylbzqfew-d ilanter (TRELEGY ELLIPTA) 100-62.5-25 mcg inhalation powder Inhale 1 Puff as instructed once daily. acetaminophen (TYLENOL) 325 mg tablet Take 2 tablets by mouth every 6 hours as needed for pain. ascorbic acid (more content not included)... Normal [facility] CASE MANA[place] [place] 07-13-2024 CASE MANAGEM HNO ID: [id number] Author: REBECA BELLE LSW Service: ? Author Type: Plastic Dolls Mold Filler Type: Care Mgt Progress Note Filed: 07/13/2024 16:25 Note Text: CARE MANAGEMENT WEEKEND PLANNING NOTE NO WEEKEND DISCHARGE Disposition: Jail Facility Anticipated Discharge Date: TBD CM followed up with pt's daughter for SNF choices. Pt is currently in the OR- unable to send referrals in careport or complete "edit note" side bar. 1)[facility] 2)[facility] 3)[facility] 4)[facility] 5)[facility] Will need accepting SNF and precert prior to dc. UPDATE 4:24pm: Referrals sent; awaiting response. Weekend Finish Molder Pager #: Please see Treatment Team for Care Management Weekend/Holiday coverage. SIGNATURE: SHAQUILLE Nuñez PATIENT NAME: Mel Castillo DATE: July 13, 2024 TIME: 3:09 PM PAGER/CONTACT #: [phone] Normal [facility] CBC panel Auto (Bld)on 07-13 Erythrocyte distribution width (RBC) [Ratio] 17.6 % High 11.5-15.0 [facility] Comment on above: Order Comment: Speci men Type: BLOOD SPECIMENOrdering Facility: [facility] Address: [address] [place] [address] Performed By: #### 5 8410-2 ####[facility] [id number] [place] [address] [place] Hematocrit (Bld) [Volume fraction] 34.5 % Low 36.0-46.0 [facility] Comment on above: Order Comment: Speci men Type: BLOOD SPECIMENOrdering Facility: [facility] Address: [address] [place] [address] Performed By: #### 5 8410-2 ####[facility] [id number] [place] [address] [place] Hemoglobin (Bld) [Mass/Vol] 10.8 g/dL Low 11.5-15.5 [facility] Comment on above: Order Comment: Speci men Type: BLOOD SPECIMENOrdering Facility: [facility] Address: [address] [place] [address] Performed By: #### 5 8410-2 ####[facility] [id number] [place] [address] [place] MCH (RBC) [Entitic mass] 26.1 pg Normal 26.0-34.0 [facility] Comment on above: Order Comment: Speci men Type: BLOOD SPECIMENOrdering Facility: [facility] Address: [address] [place] [address] Performed By: #### 5 8410-2 ####[facility] [id number] [place] [address] [place] MCHC (RBC) [Mass/Vol] 31.3 g/dL Normal 30.5-36.0 [facility] Comment on above: Order Comment: Speci men Type: BLOOD SPECIMENOrdering Facility: [facility] Address: [address] [place] [address] Performed By: #### 5 8410-2 ####[facility] [id number] [place] [address] [place] MCV (RBC) [Entitic vol] 83.3 fL Normal 80.0-100.0 [facility] Comment on above: Order Comment: Speci men Type: BLOOD SPECIMENOrdering Facility: [facility] Address: [address] [place] [address] Performed By: #### 5 8410-2 ####[facility] [id number] [place] [address] [place] Nucleated RBC (Bld) [#/Vol] 10*3/uL Normal <0.01 [facility] Comment on above: Order Comment: Speci men Type: BLOOD SPECIMENOrdering Facility: [facility] Address: [address] [place] [address] Performed By: #### 5 8410-2 ####[facility] [id number] [place] [address] [place] Platelet mean volume (Bld) [Entitic vol] 9.7 fL Normal 9.0-12.7 [facility] Comment on above: Order Comment: Speci men Type: BLOOD SPECIMENOrdering Facility: [facility] Address: [address] [place] [address] Performed By: #### 5 8410-2 ####[facility] [id number] [place] [address] [place] Platelets (Bld) [#/Vol] 334 10*3/uL Normal 150-400 [facility] Comment on above: Order Comment: Speci men Type: BLOOD SPECIMENOrdering Facility: [facility] Address: [address] [place] [address] Performed By: #### 5 8410-2 ####[facility] [id number] [place] [address] [place] RBC (Bld) [#/Vol] 4.14 10*6/uL Normal 3.90-5.20 [facility] Comment on above: Order Comment: Speci men Type: BLOOD SPECIMENOrdering Facility: [facility] Address: [address] [place] [address] Performed By: #### 5 8410-2 ####[facility] [id number] [place] [address] [place] WBC (Bld) [#/Vol] 10.74 10*3/uL Normal 3.70-11.00 [facility] Comment on above: Order Comment: Speci men Type: BLOOD SPECIMENOrdering Facility: [facility] Address: [address] [place] [address] Performed By: #### 5 8410-2 ####[facility] [id number] [place] [address] [place] ECHO WITH AGITATED SALINE CO NTRASTon 07-13-2024 ECHO WITH AGITATED SALINE CONTRAST Echocardiography Report: Transthoracic Echo [facility] Bedside Date of service: 07/13/2024 3:54:27 PM REQUIREMENTS ANALYST Ordering physician: FELICIA LEVY Indication: Limited KYLE [...] prior CC echocardiographic exam performed on 06/11/2024 ([employer]). Similar findings * * * Final * * * CC [employer] Image : [id number] Normal [facility] NUTRITIONon 07-13-2024 NUTRITION HNO ID: [id number] Author: PAWAN PRESLEY DTR Service: Nutrition Therapy Author Type: Strategic Partnership Specialist Type: Nutrition Filed: 07/13/2024 11:50 Note Text: NUTRITION THERAPY LIFE CLAIMS EXAMINER NOTE SERVICE DATE: 07/13/2024 SERVICE TIME: 1045 Visit Type: Length of Stay Evaluation Goals Met: Not Met The patient was not available at time of visit. Per [facility], she has not met nutritional goals. [...] supplements Allergies: No food allergies noted per [facility]. MNT Billing: $ Routine Care : 1-15 minutes SIGNATURE: Pawan Presley DTR PATIENT NAME: Mel Castillo DATE: July 13, 2024 TIME: 11:49 AM Normal [facility] OPERATIVE NOon 07-13-2024 OPERATIVE NO HNO ID: [id number] Author: SAVANA LOPEZ MD Service: Ophthalmology Author Type: Physician Type: Operative Report Filed: 07/13/2024 13:32 Note Text: [place] [id number] [place] [facility] CARE OPERATIVE REPORT LOG ID: [id number] Surgery/Procedure Date: 07/13/2024 Incision/Procedure Start Time: 12:43 PM Incision Close/Procedure End Time: 1:32 PM NAME: Mel Pop [facility] #: [id number] SURGEON(S) AND HAND HARDENER(S): Surgeons and Role: * Savana Lopez MD [...] MD Vitreoretinal Surgery AND Ocular Inflammatory Diseases [facility] [place] Normal [facility] Renal function 2000 panelon 07-13-2024 Albumin [Mass/Vol] 3.5 g/dL Low 3.9-4.9 [facility] Comment on above: Order Comment: Speci isabella Type: BLOOD SPECIMENOrdering Facility: [facility] Address: [address] [place] [address] Performed By: #### 2 4362-6 ####[facility] [id number] [place] [address] [place] Anion gap [Moles/Vol] 10 mmol/L Normal 8-15 [facility] Comment on above: Order Comment: Samiri isabella Type: BLOOD SPECIMENOrdering Facility: [facility] Address: [address] [place] [address] Performed By: #### 2 4362-6 ####[facility] [id number] [place] [address] [place] Calcium [Mass/Vol] 9.3 mg/dL Normal 8.5-10.2 [facility] Comment on above: Order Comment: Speci men Type: BLOOD SPECIMENOrdering Facility: [facility] Address: [address] [place] [address] Performed By: #### 2 4362-6 ####[facility] [id number] [place] [address] [place] Chloride [Moles/Vol] 100 mmol/L Normal 98-107 [facility] Comment on above: Order Comment: Speci men Type: BLOOD SPECIMENOrdering Facility: [facility] Address: [address] [place] [address] Performed By: #### 2 4362-6 ####[facility] [id number] [place] [address] [place] CO2 [Moles/Vol] 27 mmol/L Normal 22-30 [facility] Comment on above: Order Comment: Speci men Type: BLOOD SPECIMENOrdering Facility: [facility] Address: [address] [place] [address] Performed By: #### 2 4362-6 ####[facility] [id number] [place] [address] [place] Creatinine [Mass/Vol] 0.92 mg/dL Normal 0.58-0.96 [facility] Comment on above: Order Comment: Speci men Type: BLOOD SPECIMENOrdering Facility: [facility] Address: [address] [place] [address] Performed By: #### 2 4362-6 ####[facility] [id number] [place] [address] [place] Creatinine and Glomerular filtration rate.predicted panel (S/P/Bld) 62 mL/min/1.73m??? Normal >=60 [facility] Comment on above: Order Comment: Rhina mason Type: BLOOD SPECIMENOrdering Facility: [facility] Address: [address] [place] [address] Result Comment: Isa mated Glomerular Filtration Rate [...] actual GFR. Performed By: #### 2 4362-6 ####[facility] [id number] [place] [address] [place] Glucose [Mass/Vol] 103 mg/dL High 74-99 [facility] Comment on above: Order Comment: Rhina mason Type: BLOOD SPECIMENOrdering Facility: [facility] Address: [address] [place] [address] Result Comment: The [place] Diabetes Association (ADA) provides guidance for cutoff [...] Standards of Medical Care in Diabetes 2016, [place] [employer]. Diabetes Care. 2016.39(Suppl 1). Performed By: #### 2 4362-6 ####[facility] [id number] [place] [address] [place] Phosphate [Mass/Vol] 3.5 mg/dL Normal 2.7-4.8 [facility] Comment on above: Order Comment: Speci men Type: BLOOD SPECIMENOrdering Facility: [facility] Address: [address] [place] [address] Performed By: #### 2 4362-6 ####[facility] [id number] [place] [address] [place] Potassium [Moles/Vol] 4.2 mmol/L Normal 3.7-5.1 [facility] Comment on above: Order Comment: Speci men Type: BLOOD SPECIMENOrdering Facility: [facility] Address: [address] [place] [address] Performed By: #### 2 4362-6 ####[facility] [id number] [place] [address] [place] Sodium [Moles/Vol] 137 mmol/L Normal 136-144 [facility] Comment on above: Order Comment: Speci men Type: BLOOD SPECIMENOrdering Facility: [facility] Address: [address] [place] [address] Performed By: #### 2 4362-6 ####[facility] [id number] [place] [address] [place] Urea nitrogen [Mass/Vol] 12 mg/dL Normal 7-21 [facility] Comment on above: Order Comment: Speci men Type: BLOOD SPECIMENOrdering Facility: [facility] Address: [address] [place] [address] Performed By: #### 2 4362-6 ####[facility] [id number] [place] [address] [place] BSCAN OD (RIGHT EYE)on 07-12 [facility] Radiology Study observation (narrative) [facility] CBC panel Auto (Bld)on 07-12 Erythrocyte distribution width (RBC) [Ratio] 17.8 % High 11.5-15.0 [facility] Comment on above: Order Comment: Speci men Type: BLOOD SPECIMENOrdering Facility: [facility] Address: [address] [place] [address] Performed By: #### 5 8410-2 ####[facility] [id number] [place] [address] [place] Hematocrit (Bld) [Volume fraction] 34.7 % Low 36.0-46.0 [facility] Comment on above: Order Comment: Speci men Type: BLOOD SPECIMENOrdering Facility: [facility] Address: [address] [place] [address] Performed By: #### 5 8410-2 ####[facility]IA [id number] [place] [address] [place] Hemoglobin (Bld) [Mass/Vol] 10.6 g/dL Low 11.5-15.5 [facility] Comment on above: Order Comment: Speci men Type: BLOOD SPECIMENOrdering Facility: [facility] Address: [address] [place] [address] Performed By: #### 5 8410-2 ####[facility] [id number] [place] [address] [place] MCH (RBC) [Entitic mass] 26.4 pg Normal 26.0-34.0 [facility] Comment on above: Order Comment: Speci men Type: BLOOD SPECIMENOrdering Facility: [facility] Address: [address] [place] [address] Performed By: #### 5 8410-2 ####[facility] [id number] [place] [address] [place] MCHC (RBC) [Mass/Vol] 30.5 g/dL Normal 30.5-36.0 [facility] Comment on above: Order Comment: Speci men Type: BLOOD SPECIMENOrdering Facility: [facility] Address: [address] [place] [address] Performed By: #### 5 8410-2 ####[facility] [id number] [place] [address] [place] MCV (RBC) [Entitic vol] 86.3 fL Normal 80.0-100.0 [facility] Comment on above: Order Comment: Speci men Type: BLOOD SPECIMENOrdering Facility: [facility] Address: [address] [place] [address] Performed By: #### 5 8410-2 ####[facility] [id number] [place] [address] [place] Nucleated RBC (Bld) [#/Vol] 10*3/uL Normal <0.01 [facility] Comment on above: Order Comment: Speci men Type: BLOOD SPECIMENOrdering Facility: [facility] Address: [address] [place] [address] Performed By: #### 5 8410-2 ####[facility] [id number] [place] [address] [place] Platelet mean volume (Bld) [Entitic vol] 9.9 fL Normal 9.0-12.7 [facility] Comment on above: Order Comment: Speci men Type: BLOOD SPECIMENOrdering Facility: [facility] Address: [address] [place] [address] Performed By: #### 5 8410-2 ####[facility] [id number] [place] [address] [place] Platelets (Bld) [#/Vol] 301 10*3/uL Normal 150-400 [facility] Comment on above: Order Comment: Speci men Type: BLOOD SPECIMENOrdering Facility: [facility] Address: [address] [place] [address] Performed By: #### 5 8410-2 ####[facility] [id number] [place] [address] [place] RBC (Bld) [#/Vol] 4.02 10*6/uL Normal 3.90-5.20 [facility] Comment on above: Order Comment: Speci men Type: BLOOD SPECIMENOrdering Facility: [facility] Address: [address] [place] [address] Performed By: #### 5 8410-2 ####[facility] [id number] [place] [address] [place] WBC (Bld) [#/Vol] 10.07 10*3/uL Normal 3.70-11.00 [facility] Comment on above: Order Comment: Speci men Type: BLOOD SPECIMENOrdering Facility: [facility] Address: [address] [place] [address] Performed By: #### 5 8410-2 ####[facility] [id number] [place] [address] [place] PT EDon 07-12-2024 PT ED HNO ID: [id number] Author: GISSELL POPE RPh Service: Pharmacy Author [...] inpatient anticoagulant education. Gissell Pope RPh Normal [facility] Renal function 2000 panelon 07-12-2024 Albumin [Mass/Vol] 3.4 g/dL Low 3.9-4.9 [facility] Comment on above: Order Comment: Speci men Type: BLOOD SPECIMENOrdering Facility: [facility] Address: [address] [place], [place] [address] Performed By: #### 2 4362-6 ####[facility] [id number] [place] [address] [place] Anion gap [Moles/Vol] 14 mmol/L Normal 8-15 [facility] Comment on above: Order Comment: Speci men Type: BLOOD SPECIMENOrdering Facility: [facility] Address: [address] [place] [address] Performed By: #### 2 4362-6 ####[facility] [id number] [place] [address] [place] Calcium [Mass/Vol] 9.3 mg/dL Normal 8.5-10.2 [facility] Comment on above: Order Comment: Speci men Type: BLOOD SPECIMENOrdering Facility: [facility] Address: [address] [place] [address] Performed By: #### 2 4362-6 ####[facility] [id number] [place] [address] [place] Chloride [Moles/Vol] 101 mmol/L Normal 98-107 [facility] Comment on above: Order Comment: Speci men Type: BLOOD SPECIMENOrdering Facility: [facility] Address: [address] [place] [address] Performed By: #### 2 4362-6 ####[facility] [id number] [place] [address] [place] CO2 [Moles/Vol] 21 mmol/L Low 22-30 [facility] Comment on above: Order Comment: Speci men Type: BLOOD SPECIMENOrdering Facility: [facility] Address: [address] [place], [place] [address] Performed By: #### 2 4362-6 ####[facility] [id number] [place] [address] [place] Creatinine [Mass/Vol] 0.81 mg/dL Normal 0.58-0.96 [facility] Comment on above: Order Comment: Rhina mason Type: BLOOD SPECIMENOrdering Facility: [facility] Address: [address] [place] [address] Performed By: #### 2 4362-6 ####[facility] [id number] [place] [address] [place] Creatinine and Glomerular filtration rate.predicted panel (S/P/Bld) 72 mL/min/1.73m??? Normal >=60 [facility] Comment on above: Order Comment: Rhina mason Type: BLOOD SPECIMENOrdering Facility: [facility] Address: [address] [place] [address] Result Comment: Isa mated Glomerular Filtration Rate [...] actual GFR. Performed By: #### 2 4362-6 ####[facility] [id number] [place] [address] [place] Glucose [Mass/Vol] 100 mg/dL High 74-99 [facility] Comment on above: Order Comment: Rhina mason Type: BLOOD SPECIMENOrdering Facility: [facility] Address: [address] [place] [address] Result Comment: The [place] [employer] (ADA) provides guidance for cutoff [...] Standards of Medical Care in Diabetes 2016, [place] [employer]. Diabetes Care. 2016.39(Suppl 1). Performed By: #### 2 4362-6 ####[facility] [id number] [address] [address] [place] Phosphate [Mass/Vol] 2.7 mg/dL Normal 2.7-4.8 [facility] Comment on above: Order Comment: Speci men Type: BLOOD SPECIMENOrdering Facility: [facility] Address: [address] [place] [address] Performed By: #### 2 4362-6 ####[facility] [id number] [place] [address] [place] Potassium [Moles/Vol] 4.0 mmol/L Normal 3.7-5.1 [facility] Comment on above: Order Comment: Speci men Type: BLOOD SPECIMENOrdering Facility: [facility] Address: [address] [place] [address] Performed By: #### 2 4362-6 ####[facility] [id number] [place] [address] [place] Sodium [Moles/Vol] 136 mmol/L Normal 136-144 [facility] Comment on above: Order Comment: Speci men Type: BLOOD SPECIMENOrdering Facility: [facility] Address: [address] [place] [address] Performed By: #### 2 4362-6 ####[facility] [id number] [place] [id number] [place] Urea nitrogen [Mass/Vol] 12 mg/dL Normal 7-21 [facility] Comment on above: Order Comment: Speci men Type: BLOOD SPECIMENOrdering Facility: [facility] Address: [address] [place], [place] [address] Performed By: #### 2 4362-6 ####[facility] [id number] [place] [address] [place] Right eye Photo documentatio non 07-12-2024 [facility] Radiology Study observation (narrative) [facility] THERAPY NTon 07-12-2024 THERAPY NT HNO ID: [id number] Author: RYANN GUZMÁN OT/L Service: Occupational Therapy Author Type: Occupational Therapist Type: Therapy (PT/OT/Speech/Resp) Filed: 07/12/2024 12:26 Note Text: OCCUPATIONAL THERAPY MISSED VISIT SERVICE DATE: 07/12/2024 SERVICE TIME: 1226 ROOM: [place] [address] ([facility] - OPHTHALMOLOGY) Patient not seen due to Test / Procedure. SIGNATURE: JUANY Willett PATIENT NAME: Mel Castillo DATE: July 12, 2024 TIME: 12:26 PM Normal [facility] CBC panel Auto (Bld)on 07-11 Erythrocyte distribution width (RBC) [Ratio] 17.6 % High 11.5-15.0 [facility] Comment on above: Order Comment: Speci men Type: BLOOD SPECIMEN [facility] Address: [address] [place] [address] Performed By: #### 5 8410-2 #### [facility] CLIA [id number] [address] [place] [address] [place] Hematocrit (Bld) [Volume fraction] 32.3 % Low 36.0-46.0 [facility] Comment on above: Order Comment: Speci men Type: BLOOD SPECIMEN [facility] Address: [address] [place] [address] Performed By: #### 5 8410-2 #### [facility] CLIA [id number] [address] [place] [address] [place] Hemoglobin (Bld) [Mass/Vol] 10.5 g/dL Low 11.5-15.5 [facility] Comment on above: Order Comment: Speci men Type: BLOOD SPECIMEN [facility] Address: [address] [place] [address] Performed By: #### 5 8410-2 #### [facility] CLIA [id number] [address] [place] [address] [place] MCH (RBC) [Entitic mass] 27.0 pg Normal 26.0-34.0 [facility] Comment on above: Order Comment: Speci men Type: BLOOD SPECIMEN [facility] Address: [address] [place] [address] Performed By: #### 5 8410-2 #### [facility] CLIA [id number] [address] [place] [address] [place] MCHC (RBC) [Mass/Vol] 32.5 g/dL Normal 30.5-36.0 [facility] Comment on above: Order Comment: Speci men Type: BLOOD SPECIMEN [facility] Address: [address] [place] [address] Performed By: #### 5 8410-2 #### [facility] CLIA [id number] [address] [place] [address] [place] MCV (RBC) [Entitic vol] 83.0 fL Normal 80.0-100.0 C [facility] Comment on above: Order Comment: Speci men Type: BLOOD SPECIMEN [facility] Address: [address] [place] [address] Performed By: #### 5 8410-2 #### [facility] CLIA [id number] [address] [place] [address] [place] Nucleated RBC (Bld) [#/Vol] 10*3/uL Normal <0.01 [facility] Comment on above: Order Comment: Speci men Type: BLOOD SPECIMEN [facility] Address: [address] [place] [address] Performed By: #### 5 8410-2 #### [facility] CLIA [id number] [address] [place] [address] [place] Platelet mean volume (Bld) [Entitic vol] 9.9 fL Normal 9.0-12.7 [facility] Comment on above: Order Comment: Speci men Type: BLOOD SPECIMEN [facility] Address: [address] [place] [address] Performed By: #### 5 8410-2 #### [facility] CLIA [id number] [address] [place] [address] [place] Platelets (Bld) [#/Vol] 289 10*3/uL Normal 150-400 [facility] Comment on above: Order Comment: Speci men Type: BLOOD SPECIMEN [facility] Address: [address] [place] [address] Performed By: #### 5 8410-2 #### [facility] CLIA [id number] [address] [place] [address] [place] RBC (Bld) [#/Vol] 3.89 10*6/uL Low 3.90-5.20 [facility] Comment on above: Order Comment: Speci men Type: BLOOD SPECIMEN [facility] Address: [address] [place] [address] Performed By: #### 5 8410-2 #### [facility] CLIA [id number] [address] [place] [address] [place] WBC (Bld) [#/Vol] 8.32 10*3/uL Normal 3.70-11.00 [facility] Comment on above: Order Comment: Speci men Type: BLOOD SPECIMEN [facility] Address: [address] [place] [address] Performed By: #### 5 8410-2 #### [facility] CLIA [id number] [address] [place] [address] [place] Renal function 2000 panelon 07-11-2024 Albumin [Mass/Vol] 3.4 g/dL Low 3.9-4.9 [facility] Comment on above: Order Comment: Speci men Type: BLOOD SPECIMENOrdering Facility: [facility] Address: [address] [place] [address] Performed By: #### 2 4362-6 ####[facility] [id number] [place] [address] [place] Anion gap [Moles/Vol] 11 mmol/L Normal 8-15 [facility] Comment on above: Order Comment: Speci men Type: BLOOD SPECIMENOrdering Facility: [facility] Address: [address] [place] [address] Performed By: #### 2 4362-6 ####[facility] [id number] [place] [address] [place] Calcium [Mass/Vol] 8.9 mg/dL Normal 8.5-10.2 [facility] Comment on above: Order Comment: Speci men Type: BLOOD SPECIMENOrdering Facility: [facility] Address: [address] [place] [address] Performed By: #### 2 4362-6 ####[facility] [id number] [place] [address] [place] Chloride [Moles/Vol] 103 mmol/L Normal 98-107 [facility] Comment on above: Order Comment: Speci men Type: BLOOD SPECIMENOrdering Facility: [facility] Address: [address] [place] [address] Performed By: #### 2 4362-6 ####[facility] [id number] [place] [address] [place] CO2 [Moles/Vol] 23 mmol/L Normal 22-30 [facility] Comment on above: Order Comment: Speci men Type: BLOOD SPECIMENOrdering Facility: [facility] Address: [address] [place] [address] Performed By: #### 2 4362-6 ####[facility] [id number] [place] [address] [place] Creatinine [Mass/Vol] 0.91 mg/dL Normal 0.58-0.96 [facility] Comment on above: Order Comment: Speci men Type: BLOOD SPECIMENOrdering Facility: [facility] Address: [address] [place] [address] Performed By: #### 2 4362-6 ####[facility] [id number] [place] [address] [place] Creatinine and Glomerular filtration rate.predicted panel (S/P/Bld) 62 mL/min/1.73m??? Normal >=60 [facility] Comment on above: Order Comment: Speci men Type: BLOOD SPECIMENOrdering Facility: [facility] Address: [address] [place] [address] Result Comment: Isa mated Glomerular Filtration Rate [...] actual GFR. Performed By: #### 2 4362-6 ####[facility] [id number] [place] [address] [place] Glucose [Mass/Vol] 98 mg/dL Normal 74-99 [facility] Comment on above: Order Comment: Speci men Type: BLOOD SPECIMENOrdering Facility: [facility] Address: [address] [place] [address] Result Comment: The [place] [employer] (ADA) provides guidance for cutoff [...] Standards of Medical Care in Diabetes 2016, [place] [employer]. Diabetes Care. 2016.39(Suppl 1). Performed By: #### 2 4362-6 ####[facility] [id number] [place] [address] [place] Phosphate [Mass/Vol] 2.8 mg/dL Normal 2.7-4.8 [facility] Comment on above: Order Comment: Speci men Type: BLOOD SPECIMENOrdering Facility: [facility] Address: [address] [place] [address] Performed By: #### 2 4362-6 ####[facility] [id number] [place] [address] [place] Potassium [Moles/Vol] 3.6 mmol/L Low 3.7-5.1 [facility] Comment on above: Order Comment: Speci men Type: BLOOD SPECIMENOrdering Facility: [facility] Address: [address] [place] [address] Performed By: #### 2 4362-6 ####[facility] [id number] [place] [address] [place] Sodium [Moles/Vol] 137 mmol/L Normal 136-144 [facility] Comment on above: Order Comment: Speci men Type: BLOOD SPECIMENOrdering Facility: [facility] Address: [address] [place] [address] Performed By: #### 2 4362-6 ####[facility] [id number] [place] [address] [place] Urea nitrogen [Mass/Vol] 15 mg/dL Normal 7-21 [facility] Comment on above: Order Comment: Speci men Type: BLOOD SPECIMENOrdering Facility: [facility] Address: [address] [place] [id number] Performed By: #### 2 4362-6 ####[facility] [id number] [facility] MANORIsidoro [id number] [id number] [place] CASE MANAGEMon 07-10-2024 CASE MANAGEM HNO ID: [id number] Author: MYA HUGHES LSW Service: Social Work Author Type: Plastic Dolls Mold Filler Type: Care Mgt Progress Note Filed: 07/10/2024 14:42 Note Text: CARE MANAGEMENT PROGRESS NOTE SERVICE DATE: 07/10/2024 SERVICE TIME: 2:38 PM LOS: 3 days Post-Acute Discharge Planning Patient Goal(s): Increase strength [place] Explained: [place] Given: Yes Post-Acute Discharge Plan: [...] July 10, 2024 TIME: 2:38 PM Normal [facility] CBC panel Auto (Bld)on 07-10 Erythrocyte distribution width (RBC) [Ratio] 17.5 % High 11.5-15.0 [facility] Comment on above: Order Comment: Rhina mason Type: BLOOD SPECIMEN Ordering Facility: [facility] Address: [address] [place] [address] Performed By: #### 2 276-4 #### [facility] CLIA [id number] [address] [place] [address] [place] Hematocrit (Bld) [Volume fraction] 31.7 % Low 36.0-46.0 [facility] Comment on above: Order Comment: Rhina mason Type: BLOOD SPECIMEN Ordering Facility: [facility] Address: [address] [place] [address] Performed By: #### 2 276-4 #### [facility] CLIA [id number] [address] [place] [address] [place] Hemoglobin (Bld) [Mass/Vol] 9.9 g/dL Low 11.5-15.5 [facility] Comment on above: Order Comment: Speci men Type: BLOOD SPECIMEN Ordering Facility: [facility] Address: [address] [place] [address] Performed By: #### 2 276-4 #### [facility] CLIA [id number] [address] [place] [address] [place] MCH (RBC) [Entitic mass] 26.0 pg Normal 26.0-34.0 [facility] Comment on above: Order Comment: Speci men Type: BLOOD SPECIMEN Ordering Facility: [facility] Address: [address] [place] [address] Performed By: #### 2 276-4 #### [facility] CLIA [id number] [address] [place] [address] [place] MCHC (RBC) [Mass/Vol] 31.2 g/dL Normal 30.5-36.0 [facility] Comment on above: Order Comment: Speci men Type: BLOOD SPECIMEN Ordering Facility: [facility] Address: [address] [place] [address] Performed By: #### 2 276-4 #### [facility] CLIA [id number] [address] [place] [address] [place] MCV (RBC) [Entitic vol] 83.2 fL Normal 80.0-100.0 C [facility] Comment on above: Order Comment: Speci men Type: BLOOD SPECIMEN Ordering Facility: [facility] Address: [address] [place] [address] Performed By: #### 2 276-4 #### [facility] CLIA [id number] [address] [place] [address] [place] Nucleated RBC (Bld) [#/Vol] 10*3/uL Normal <0.01 [facility] Comment on above: Order Comment: Speci men Type: BLOOD SPECIMEN Ordering Facility: [facility] Address: [address] [place] [address] Performed By: #### 2 276-4 #### [facility] CLIA [id number] [address] [place] [address] [place] Platelet mean volume (Bld) [Entitic vol] 10.3 fL Normal 9.0-12.7 [facility] Comment on above: Order Comment: Speci men Type: BLOOD SPECIMEN Ordering Facility: [facility] Address: [address] [place] [address] Performed By: #### 2 276-4 #### [facility] CLIA [id number] [address] [place] [address] [place] Platelets (Bld) [#/Vol] 336 10*3/uL Normal 150-400 [facility] Comment on above: Order Comment: Speci men Type: BLOOD SPECIMEN Ordering Facility: [facility] Address: [address] [place] [address] Performed By: #### 2 276-4 #### [facility] CLIA [id number] [address] [place] [address] [place] RBC (Bld) [#/Vol] 3.81 10*6/uL Low 3.90-5.20 [facility] Comment on above: Order Comment: Speci men Type: BLOOD SPECIMEN Ordering Facility: [facility] Address: [address] [place] [address] Performed By: #### 2 276-4 #### [facility] CLIA [id number] [address] [place] [address] [place] WBC (Bld) [#/Vol] 6.35 10*3/uL Normal 3.70-11.00 [facility] Comment on above: Order Comment: Speci men Type: BLOOD SPECIMEN Ordering Facility: [facility] Address: [address] [place] [address] Performed By: #### 2 276-4 #### [facility] CLIA [id number] [address] [place] [address] [place] Renal function 2000 panelon 07-10-2024 Albumin [Mass/Vol] 3.5 g/dL Low 3.9-4.9 [facility] Comment on above: Order Comment: Speci men Type: BLOOD SPECIMEN [facility] Address: [address] [place] [address] Performed By: #### 2 4362-6 #### [facility] CLIA [id number] [address] [place] [address] [place] Anion gap [Moles/Vol] 12 mmol/L Normal 8-15 [facility] Comment on above: Order Comment: Speci men Type: BLOOD SPECIMEN [facility] Address: [address] [place] [address] Performed By: #### 2 4362-6 #### [facility] CLIA [id number] [address] [place] [address] [place] Calcium [Mass/Vol] 9.0 mg/dL Normal 8.5-10.2 [facility] Comment on above: Order Comment: Speci men Type: BLOOD SPECIMEN [facility] Address: [address] [place] [address] Performed By: #### 2 4362-6 #### [facility] CLIA [id number] [address] [place] [address] [place] Chloride [Moles/Vol] 104 mmol/L Normal 98-107 [facility] Comment on above: Order Comment: Speci men Type: BLOOD SPECIMEN [facility] Address: [address] [place] [address] Performed By: #### 2 4362-6 #### [facility] CLIA [id number] [address] [place] [address] [place] CO2 [Moles/Vol] 22 mmol/L Normal 22-30 [facility] Comment on above: Order Comment: Speci men Type: BLOOD SPECIMEN [facility] Address: [address] [place] [address] Performed By: #### 2 4362-6 #### [facility] CLIA [id number] [address] [place] [address] [place] Creatinine [Mass/Vol] 0.93 mg/dL Normal 0.58-0.96 [facility] Comment on above: Order Comment: Rhina men Type: BLOOD SPECIMEN [facility] Address: [address] [place] [address] Performed By: #### 2 4362-6 #### [facility] CLIA [id number] [address] [place] [address] [place] Creatinine and Glomerular filtration rate.predicted panel (S/P/Bld) 61 mL/min/1.73m??? Normal >=60 [facility] Comment on above: Order Comment: Rhina mason Type: BLOOD SPECIMEN [facility] Address: [address] [place] [address] Result Comment: Isa mated Glomerular Filtration Rate [...] GFR. Performed By: #### 2 4362-6 #### [facility] CLIA [id number] [address] [place] [address] [place] Glucose [Mass/Vol] 102 mg/dL High 74-99 [facility] Comment on above: Order Comment: Rhina mason Type: BLOOD SPECIMEN [facility] Address: [address] [place] [address] Result Comment: The [place] Diabetes [employer] (ADA) provides guidance for cutoff [...] Standards of Medical Care in Diabetes 2016, [place] [employer]. Diabetes Care. 2016.39(Suppl 1). Performed By: #### 2 4362-6 #### [facility] CLIA [id number] [address] [place] [address] [place] Phosphate [Mass/Vol] 2.6 mg/dL Low 2.7-4.8 [facility] Comment on above: Order Comment: Speci isabella Type: BLOOD SPECIMEN [facility] Address: [address] [place] [address] Performed By: #### 2 4362-6 #### [facility] CLIA [id number] [address] [place] [address] [place] Potassium [Moles/Vol] 3.9 mmol/L Normal 3.7-5.1 [facility] Comment on above: Order Comment: Rhina mason Type: BLOOD SPECIMEN [facility] Address: [address] [place] [address] Performed By: #### 2 4362-6 #### [facility] CLIA [id number] [address] [place] [address] [place] Sodium [Moles/Vol] 138 mmol/L Normal 136-144 [facility] Comment on above: Order Comment: Samiri men Type: BLOOD SPECIMEN [facility] Address: [address] [place] [address] Performed By: #### 2 4362-6 #### [facility] CLIA [id number] [address] [place] [address] [place] Urea nitrogen [Mass/Vol] 21 mg/dL Normal 7-21 [facility] Comment on above: Order Comment: Speci men Type: BLOOD SPECIMEN [facility] Address: [address] [place] [address] Performed By: #### 2 4362-6 #### [facility] CLIA [id number] [address] [place] [id number] THERAPY NTon 07-10-2024 THERAPY NT HNO ID: [id number] Author: SANTIAGO GUZMAN, OT/L Service: Occupational Therapy Author Type: Occupational Therapist Type: Therapy (PT/OT/Speech/Resp) Filed: 07/10/2024 10:00 Note Text: Occupational Therapy Evaluation Summary SERVICE DATE: 07/10/2024 SERVICE TIME: 0840 to 0920 ROOM: [place] [address] OT 6 Clicks Score: 15 DISCHARGE RECOMMENDATIONS [...] "shadows" and 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 SNF rec at this time pending [...] (generalized) TREATMENT INTERVENTIONS Evaluation, Self Longterm Management (87402) Timed Code Treatment (minutes): 25 Skilled Treatment [...] Sit to Stand, Standing Balance to Improve [place] with ADLs/Self-Care, Sitting Balance to Improve [place] with ADLs/Self-Care, Life Roles/Routines/Habits THERAPEUTIC SKILLS USED Therapeutic Use of Self, Physical Assist, Movement Facilitation, Management of Critical Lines, Tubes and/or Drains FUNCTIONAL STATUS Activities of Daily Living Assist Level Additional Information Feeding Minimal Assistance Grooming Moderate Assistance Bathing Upper Body Minimal Assistance Bathing Lower Body Ma (more content not included)... Normal [facility] CBC panel Auto (Bld)on 07-09 Erythrocyte distribution width (RBC) [Ratio] 17.7 % High 11.5-15.0 [facility] Comment on above: Order Comment: Speci isabella Type: BLOOD SPECIMEN Ordering Facility: [facility] Address: [address] [place] [address] Performed By: #### 2 4362-6 #### [facility] CLIA [id number] [address] [place] [address] [place] Hematocrit (Bld) [Volume fraction] 33.9 % Low 36.0-46.0 [facility] Comment on above: Order Comment: Rhina mason Type: BLOOD SPECIMEN Ordering Facility: [facility] Address: [address] [place] [address] Performed By: #### 2 4362-6 #### [facility] CLIA [id number] [address] [place] [address] [place] Hemoglobin (Bld) [Mass/Vol] 10.5 g/dL Low 11.5-15.5 [facility] Comment on above: Order Comment: Speci men Type: BLOOD SPECIMEN Ordering Facility: [facility] Address: [address] [place] [address] Performed By: #### 2 4362-6 #### [facility] CLIA [id number] [address] [place] [address] [place] MCH (RBC) [Entitic mass] 26.6 pg Normal 26.0-34.0 [facility] Comment on above: Order Comment: Speci men Type: BLOOD SPECIMEN Ordering Facility: [facility] Address: [address] [place] [address] Performed By: #### 2 4362-6 #### [facility] CLIA [id number] [address] [place] [address] [place] MCHC (RBC) [Mass/Vol] 31.0 g/dL Normal 30.5-36.0 [facility] Comment on above: Order Comment: Speci men Type: BLOOD SPECIMEN Ordering Facility: [facility] Address: [address] [place] [address] Performed By: #### 2 4362-6 #### [facility] CLIA [id number] [address] [place] [address] [place] MCV (RBC) [Entitic vol] 86.0 fL Normal 80.0-100.0 C [facility] Comment on above: Order Comment: Speci men Type: BLOOD SPECIMEN Ordering Facility: [facility] Address: [address] [place] [address] Performed By: #### 2 4362-6 #### [facility] CLIA [id number] [address] [place] [address] [place] Nucleated RBC (Bld) [#/Vol] 10*3/uL Normal <0.01 [facility] Comment on above: Order Comment: Speci men Type: BLOOD SPECIMEN Ordering Facility: [facility] Address: [address] [place] [address] Performed By: #### 2 4362-6 #### [facility] CLIA [id number] [address] [place] [address] [place] Platelet mean volume (Bld) [Entitic vol] 10.4 fL Normal 9.0-12.7 [facility] Comment on above: Order Comment: Speci men Type: BLOOD SPECIMEN Ordering Facility: [facility] Address: [address] [place] [address] Performed By: #### 2 4362-6 #### [facility] CLIA [id number] [address] [place] [address] [place] Platelets (Bld) [#/Vol] 346 10*3/uL Normal 150-400 [facility] Comment on above: Order Comment: Speci men Type: BLOOD SPECIMEN Ordering Facility: [facility] Address: [address] [place] [address] Performed By: #### 2 4362-6 #### [facility] CLIA [id number] [address] [place] [address] [place] RBC (Bld) [#/Vol] 3.94 10*6/uL Normal 3.90-5.20 [facility] Comment on above: Order Comment: Speci men Type: BLOOD SPECIMEN Ordering Facility: [facility] Address: [address] [place] [address] Performed By: #### 2 4362-6 #### [facility] CLIA [id number] [address] [place] [address] [place] WBC (Bld) [#/Vol] 8.22 10*3/uL Normal 3.70-11.00 [facility] Comment on above: Order Comment: Speci men Type: BLOOD SPECIMEN [facility] [facility] Address: [address] [place] [address] Performed By: #### 2 4362-6 #### [facility] CLIA [id number] [address] [place] [address] [place] Renal function 2000 panelon 07-09-2024 Albumin [Mass/Vol] 3.6 g/dL Low 3.9-4.9 [facility] Comment on above: Order Comment: Speci men Type: BLOOD SPECIMEN Ordering Facility: [facility] Address: [address] [place] [address] Performed By: #### 2 4362-6 #### [facility] CLIA [id number] [address] [id number] [place] Anion gap [Moles/Vol] 11 mmol/L Normal 8-15 [facility] Comment on above: Order Comment: Speci men Type: BLOOD SPECIMEN Ordering Facility: [facility] Address: [address] [place], [place] [address] Performed By: #### 2 4362-6 #### [facility] CLIA [id number] [address] [place] [address] [place] Calcium [Mass/Vol] 8.8 mg/dL Normal 8.5-10.2 [facility] Comment on above: Order Comment: Speci men Type: BLOOD SPECIMEN Ordering Facility: [facility] Address: [address] [place] [address] Performed By: #### 2 4362-6 #### [facility] CLIA [id number] [address] [place] [address] [place] Chloride [Moles/Vol] 103 mmol/L Normal 98-107 [facility] Comment on above: Order Comment: Speci men Type: BLOOD SPECIMEN Ordering Facility: [facility] Address: [address] [place] [address] Performed By: #### 2 4362-6 #### [facility] CLIA [id number] [address] [place] [address] [place] CO2 [Moles/Vol] 22 mmol/L Normal 22-30 [facility] Comment on above: Order Comment: Speci men Type: BLOOD SPECIMEN Ordering Facility: [facility] Address: [address] [place], [place] [address] Performed By: #### 2 4362-6 #### [facility] CLIA [id number] [address] [place], [place] [address] [place] Creatinine [Mass/Vol] 0.94 mg/dL Normal 0.58-0.96 [facility] Comment on above: Order Comment: Speci men Type: BLOOD SPECIMEN Ordering Facility: [facility] Address: [address] [place] [address] Performed By: #### 2 4362-6 #### [facility] CLIA [id number] [address] [place] [address] [place] Creatinine and Glomerular filtration rate.predicted panel (S/P/Bld) 60 mL/min/1.73m??? Normal >=60 [facility] Comment on above: Order Comment: Rhina mason Type: BLOOD SPECIMEN Ordering Facility: [facility] Address: [address] [place] [address] Result Comment: Isa mated Glomerular Filtration Rate [...] GFR. Performed By: #### 2 4362-6 #### [facility] CLIA [id number] [address] [place] [address] [place] Glucose [Mass/Vol] 158 mg/dL High 74-99 [facility] Comment on above: Order Comment: Rhina mason Type: BLOOD SPECIMEN Ordering Facility: [facility] Address: [address] [place] [address] Result Comment: The [place] Diabetes Association (ADA) provides guidance for cutoff [...] Standards of Medical Care in Diabetes 2016, [place] [employer]. Diabetes Care. 2016.39(Suppl 1). Performed By: #### 2 4362-6 #### [facility] CLIA [id number] [address] [place] [address] [place] Phosphate [Mass/Vol] 2.0 mg/dL Low 2.7-4.8 [facility] Comment on above: Order Comment: Speci men Type: BLOOD SPECIMEN Ordering Facility: [facility] Address: [address] [place] [address] Performed By: #### 2 4362-6 #### [facility] CLIA [id number] [address] [place] [address] [place] Potassium [Moles/Vol] 4.1 mmol/L Normal 3.7-5.1 [facility] Comment on above: Order Comment: Speci men Type: BLOOD SPECIMEN Ordering Facility: [facility] Address: [address] [place] [address] Performed By: #### 2 4362-6 #### [facility] CLIA [id number] [address] [place] [address] [place] Sodium [Moles/Vol] 136 mmol/L Normal 136-144 [facility] Comment on above: Order Comment: Speci men Type: BLOOD SPECIMEN Ordering Facility: [facility] Address: [address] [place] [address] Performed By: #### 2 4362-6 #### [facility] CLIA [id number] [address] [place] [address] [place] Urea nitrogen [Mass/Vol] 18 mg/dL Normal 7-21 [facility] Comment on above: Order Comment: Speci men Type: BLOOD SPECIMEN Ordering Facility: [facility] Address: [address] [place] [address] Performed By: #### 2 4362-6 #### [facility] CLIA [id number] [address] [place] [address] [place] CONSULTon 07-08-2024 CONSULT HNO ID: [id number] Author: JARED GILMORE MD Service: Ophthalmology Author [...] Mon-Tue, 7 am - 5 pm, page [phone] Mon-Tue, 5 pm - 7 am, page [phone] Weekends (Fri 5 pm to Mon 7 am), page [phone] EXAM: Base Eye Exam Visual Acuity Right Left Dist sc CF at 3' Tonometry (Applanation, 8:30 AM) Right Left Pressure 14 Pupils Dark Light Shape React Right 6 (more content not included)... Normal [facility] [id number] 07-07-2024 [id number] Normal [facility] BASIC METABOLIC PANELon 06-18 Anion gap [Moles/Vol] 4 mmol/L Normal 3-13 [facility] Comment on above: Performed By: #### L AB15 ####Senior Vice President & General Counsel: VELMA VALADEZ ([phone])[address] Calcium [Mass/Vol] 8.7 mg/dL Low 8.8-10.0 [facility] Comment on above: Performed By: #### L AB15 ####Senior Vice President & General Counsel: VELMA VALADEZ ([phone])[facility])[address] [place] [address] Chloride [Moles/Vol] 111 mmol/L High 98-107 [facility] Comment on above: Performed By: #### L AB15 ####Senior Vice President & General Counsel: VELMA VALADEZ ([phone])[facility] [place] [address] CO2 [Moles/Vol] 23 mmol/L Normal 23-31 [facility] Comment on above: Performed By: #### L AB15 ####Senior Vice President & General Counsel: VELMA VALADEZ ([phone])[facility])[address] [place] [address] Creatinine [Mass/Vol] 0.84 mg/dL Normal 0.57-1.11 [facility] Comment on above: Performed By: #### L AB15 ####Senior Vice President & General Counsel: VELMA VALADEZ ([phone])[facility])[address] [place] [address] GLOMERULAR FILTRATION RATE ML/MIN/1.73 SQ M.PREDICTED 68.6 mL/min/1.73m*2 Normal >60.0 [facility] Comment on above: Result Comment: Calc ulation based on the Chronic Kidney Disease Epidemiology Collaboration (CKD-EPI) equation refit without adjustment for race Performed By: #### L AB15 ####Senior Vice President & General Counsel: VELMA VALADEZ ([phone])[facility] ([facility])[address] [place] [address] Glucose [Mass/Vol] 102 mg/dL Normal 82-115 [facility] Comment on above: Performed By: #### L AB15 ####Senior Vice President & General Counsel: VELMA VALADEZ ([phone])[facility])[address] [place] [address] Potassium [Moles/Vol] 4.0 mmol/L Normal 3.5-5.1 [facility] Comment on above: Result Comment: [facility] potassium values may be up to 0.5 mmol/L lower than serum values. Performed By: #### L AB15 ####Senior Vice President & General Counsel: VELMA VALADEZ ([phone])[facility] ([facility])[address] [place] [address] Sodium [Moles/Vol] 138 mmol/L Normal 136-145 [facility] Comment on above: Performed By: #### L AB15 ####Senior Vice President & General Counsel: VELMA VALADEZ ([phone])[facility] [place] [address] Urea nitrogen [Mass/Vol] 19 mg/dL Normal 9-23 [facility] Comment on above: Performed By: #### L AB15 ####Senior Vice President & General Counsel: VELMA VALADEZ ([phone])[facility] ([facility])[address] [place] [address] Basic metabolic 1998 panelon 07-07-2024 Anion gap [...] [facility] Urea nitrogen [Mass/Vol] 19 mg/dL 9 - 23 mg/dL [facility] CBC W Auto Differential pane l (Bld)Ordered By: Devika Eisenberg on 07-07-2024 Basophils (Bld) [#/Vol] 0 10*3/uL 0.0 - 0.2 10*3/uL [facility] Basophils/100 WBC (Bld) 0.4 % 0.0 - 2.0 % [facility] Eosinophils (Bld) [#/Vol] 0.1 10*3/uL 0.0 - 0.5 10*3/uL [facility] Eosinophils/100 WBC (Bld) 1.3 % 0.0 - 6.0 % [facility] Erythrocyte distribution width (RBC) [Ratio] 17.6 % High 11.5 - 15.0 % [facility] Hematocrit (Bld) [Volume fraction] 29.9 % Low 35.0 - 47.0 % [facility] Hemoglobin (Bld) [Mass/Vol] 9.1 g/dL Low 11.7 - 16.0 g/dL [facility] Immature granulocytes (Bld) [#/Vol] 0 10*3/uL NINF - 0.1 10*3/uL [facility] Immature granulocytes/100 WBC (Bld) 0.2 % 0.0 - 2.0 % [facility] Interpretation and review of laboratory results Abnormal [facility] Lymphocytes (Bld) [#/Vol] 1.2 10*3/uL 1.0 - 4.3 10*3/uL [facility] Lymphocytes/100 WBC (Bld) 22 % 15.0 - [...] Basophils (Bld) [#/Vol] 0.0 10*3/uL Normal 0.0-0.2 [facility] Comment on above: Performed By: #### L [id number] ####Senior Vice President & General Counsel: VELMA VALADEZ ([phone])[facility] ([facility])[address] [place] [address] Basophils/100 WBC (Bld) 0.4 % Normal 0.0-2.0 [facility] Comment on above: Performed By: #### L [id number] ####Senior Vice President & General Counsel: VELMA VALADEZ ([phone])[facility] ([facility])[address] [place] [address] Eosinophils (Bld) [#/Vol] 0.1 10*3/uL Normal 0.0-0.5 [facility] Comment on above: Performed By: #### L [id number] ####Senior Vice President & General Counsel: VELMA VALADEZ ([phone])[facility] ([facility])[address] [place] [address] Eosinophils/100 WBC (Bld) 1.3 % Normal 0.0-6.0 [facility] Comment on above: Performed By: #### L [id number] ####Senior Vice President & General Counsel: VELMA VALADEZ ([phone])[facility] ([facility])[address] [place] [address] Erythrocyte distribution width (RBC) [Ratio] 17.6 % High 11.5-15.0 [facility] Comment on above: Performed By: #### L [id number] ####Senior Vice President & General Counsel: VELMA VALADEZ ([phone])[facility] ([facility])[address] [place] [address] Hematocrit (Bld) [Volume fraction] 29.9 % Low 35.0-47.0 [facility] Comment on above: Performed By: #### L [id number] ####Senior Vice President & General Counsel: VELMA VALADEZ ([phone])[facility])[address] [place] [address] Hemoglobin (Bld) [Mass/Vol] 9.1 g/dL Low 11.7-16.0 [facility] Comment on above: Performed By: #### L [id number] ####Senior Vice President & General Counsel: VELMA VALADEZ ([phone])[facility])[address] [place] [address] IMMATURE GRANS % 0.2 % Normal 0.0-2.[address] [facility] Comment on above: Performed By: #### L [id number] ####Senior Vice President & General Counsel: VELMA VALADEZ ([phone])[facility])[address] [place] [address] IMMATURE GRANS ABSOLUTE 0.0 10*3/uL Normal <0.1 [facility] Comment on above: Performed By: #### L [id number] ####Senior Vice President & General Counsel: VELMA VALADEZ ([phone])[facility])[address] [place] [address] Lymphocytes (Bld) [#/Vol] 1.2 10*3/uL Normal 1.0-4.3 [facility] Comment on above: Performed By: #### L [id number] ####Senior Vice President & General Counsel: VELMA VALADEZ ([phone])[facility])[address] [place] [address] Lymphocytes/100 WBC (Bld) 22.0 % Normal 15.0-45.0 [facility] Comment on above: Performed By: #### L [id number] ####Senior Vice President & General Counsel: VELMA VALADEZ ([phone])[facility])[address] [place] [address] MCH (RBC) [Entitic mass] 25.9 pg Low 26.0-34.0 [facility] Comment on above: Performed By: #### L [id number] ####Senior Vice President & General Counsel: VELMA VALADEZ ([phone])[facility] ([facility])[address] [place] [address] MCHC 30.4 % Low 30.5-36.0 [facility] Comment on above: Performed By: #### L [id number] ####Senior Vice President & General Counsel: VELMA VALADEZ ([phone])[facility] ([facility])[address] [place] [address] MCV (RBC) [Entitic vol] 84.9 fL Normal 77.0-99.0 [facility] Comment on above: Performed By: #### L [id number] ####Senior Vice President & General Counsel: VELMA VALADEZ ([phone])[facility])[address] [place] [address] Monocytes (Bld) [#/Vol] 0.6 10*3/uL Normal 0.0-0.9 [facility] Comment on above: Performed By: #### L [id number] ####Senior Vice President & General Counsel: VELMA VALADEZ ([phone])[facility] ([facility])[address] [place] [address] Monocytes/100 WBC (Bld) 10.0 % Normal 5.0-13.0 [facility] Comment on above: Performed By: #### L [id number] ####Senior Vice President & General Counsel: VELMA VALADEZ ([phone])[facility] ([facility])[address] [place] [address] NEUTROPHILS ABSOLUTE 3.7 10*3/uL Normal 1.8-7.5 [facility] Comment on above: Performed By: #### L [id number] ####Senior Vice President & General Counsel: VELMA VALADEZ ([phone])[facility])[address] [place] [address] Neutrophils/100 WBC (Bld) 66.1 % Normal 38.0-82.0 [facility] Comment on above: Performed By: #### L [id number] ####Senior Vice President & General Counsel: VELMA VALADEZ ([phone])[facility] ([facility])[address] [place] [address] NRBC 0.0 /100 WBCs Normal 0.0-2.0 [facility] Comment on above: Performed By: #### L [id number] ####Senior Vice President & General Counsel: VELMA VALADEZ ([phone])[facility] ([facility])[address] [place] [address] Platelet mean volume (Bld) [Entitic vol] 9.8 fL Normal 9.0-12.7 [facility] Comment on above: Performed By: #### L [id number] ####Senior Vice President & General Counsel: VELMA VALADEZ ([phone])[facility] ([facility])[address] [place] [address] Platelets (Bld) [#/Vol] 301 10*3/uL Normal 140-440 [facility] Comment on above: Performed By: #### L [id number] ####Senior Vice President & General Counsel: VELMA VALADEZ ([phone])[facility] ([facility])[address] [place] [address] RBC (Bld) [#/Vol] 3.52 10*6/uL Low 3.80-5.20 [facility] Comment on above: Performed By: #### L [id number] ####Senior Vice President & General Counsel: VELMA VALADEZ ([phone])[facility] ([facility])[address] [place] [address] WBC (Bld) [#/Vol] 5.6 10*3/uL Normal 3.6-10.7 [facility] Comment on above: Performed By: #### L [id number] ####Senior Vice President & General Counsel: VELMA VALADEZ ([phone])[facility])[address] [place] [address] CBC panel Auto (Bld)on 07-07 Erythrocyte distribution width (RBC) [Ratio] 17.5 % High 11.5-15.0 [facility] Comment on above: Order Comment: Speci men Type: BLOOD SPECIMEN Ordering Facility: [facility] Address: [address] [place] [address] Performed By: #### 2 4362-6 #### [facility] CLIA [id number] [address] [place] [address] [place] Hematocrit (Bld) [Volume fraction] 32.7 % Low 36.0-46.0 [facility] Comment on above: Order Comment: Speci men Type: BLOOD SPECIMEN Ordering Facility: [facility] Address: [address] [place] [address] Performed By: #### 2 4362-6 #### [facility] CLIA [id number] [address] [place] [address] [place] Hemoglobin (Bld) [Mass/Vol] 10.2 g/dL Low 11.5-15.5 [facility] Comment on above: Order Comment: Speci men Type: BLOOD SPECIMEN Ordering Facility: [facility] Address: [address] [place] [address] Performed By: #### 2 4362-6 #### [facility] CLIA [id number] [address] [place] [address] [place] MCH (RBC) [Entitic mass] 26.8 pg Normal 26.0-34.0 [facility] Comment on above: Order Comment: Speci men Type: BLOOD SPECIMEN Ordering Facility: [facility] Address: [address] [place] [address] Performed By: #### 2 4362-6 #### [facility] CLIA [id number] [address] [place] [address] [place] MCHC (RBC) [Mass/Vol] 31.2 g/dL Normal 30.5-36.0 [facility] Comment on above: Order Comment: Speci men Type: BLOOD SPECIMEN Ordering Facility: [facility] Address: [address] [place] [address] Performed By: #### 2 4362-6 #### [facility] CLIA [id number] [address] [place] [address] [place] MCV (RBC) [Entitic vol] 86.1 fL Normal 80.0-100.0 [facility] Comment on above: Order Comment: Speci men Type: BLOOD SPECIMEN Ordering Facility: [facility] Address: [address] [place] [address] Performed By: #### 2 4362-6 #### [facility] CLIA [id number] [address] [place] [address] [place] Nucleated RBC (Bld) [#/Vol] 10*3/uL Normal <0.01 [facility] Comment on above: Order Comment: Speci men Type: BLOOD SPECIMEN Ordering Facility: [facility] Address: [address] [place] [address] Performed By: #### 2 4362-6 #### [facility] CLIA [id number] [address] [place] [address] [place] Platelet mean volume (Bld) [Entitic vol] 9.8 fL Normal 9.0-12.7 [facility] Comment on above: Order Comment: Speci men Type: BLOOD SPECIMEN Ordering Facility: [facility] Address: [address] [place] [address] Performed By: #### 2 4362-6 #### [facility] CLIA [id number] [address] [place] [address] [place] Platelets (Bld) [#/Vol] 284 10*3/uL Normal 150-400 [facility] Comment on above: Order Comment: Speci men Type: BLOOD SPECIMEN Ordering Facility: [facility] Address: [address] [place] [address] Performed By: #### 2 4362-6 #### [facility] CLIA [id number] [address] [place] [address] [place] RBC (Bld) [#/Vol] 3.80 10*6/uL Low 3.90-5.20 [facility] Comment on above: Order Comment: Speci men Type: BLOOD SPECIMEN Ordering Facility: [facility] Address: [address] [place] [address] Performed By: #### 2 4362-6 #### [facility] CLIA [id number] [address] [place] [address] [place] WBC (Bld) [#/Vol] 5.72 10*3/uL Normal 3.70-11.00 [facility] Comment on above: Order Comment: Speci men Type: BLOOD SPECIMEN Ordering Facility: [facility] Address: [address] [place] [address] Performed By: #### 2 4362-6 #### [facility] CLIA [id number] [address] [place] [address] [place] [address] ORBITS WO IVCONon 12-21-[address] ORBITS WO IVCON * * *Final Report* * * DATE OF EXAM: Jul 07 2024 8:21PM [facility] 0510 - CT ORBITS WO IVCON / [...] changes. Unchanged appearance of left globe/phthisis bulbi. Cardiovascular Technician: Vyteris Transcribe Date/Time: Jul 07 2024 8:24P Dictated by : ULICES LEBLANC MD This examination was interpreted and the report reviewed and electronically signed by: DE JAIN MD on Jul 07 2024 9:18PM EST [id number] Normal [facility] HISTORY PHYSICALon HISTORY PHYSICAL HNO ID: [id number] Author: FELICIA LEVY MD Service: General Internal [...] 3pm to 7am): Please page on-call resident [phone] (Jonathan Miranda Subjective CHIEF COMPLAINT: Acute angle closure glaucoma HPI: Mel Castillo is a 83 year old female with a PMH of COPD, HTN, Afib (on Lovenox), CKD Stage 3, L retinal detachment, recurrent embolic events, and 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 She was subsequently taken by the back sizer for peripheral iridotomy's, which helped to reduce elevated intraocular pressure down to 10.2 mmHg in the R eye. Furthermore, was evaluated by stroke team at [facility] who reviewed her images and believed her headache and severe vision loss was secondary to the acute closure glaucoma and not stroke. Ultimately, it was determined that due to vision now being reduced to only one eye she required retinal specialist at [facility] for repair of acute retinal detachment on [...] of breath., Disp: , Rfl: , 07/06/2024 vbraywomkqe-nxcsoyfzk-q ilanter (TRELEGY ELLIPTA) 100-62.5-25 mcg inhalation powder, Inhale 1 (more content not included)... Normal [facility] NURSING PROGon 07-07-2024 NURSING PROG HNO ID: [id number] Author: SONNY CASTILLO, RN Service: Nursing Author [...] notify nurse if she experiences pain. Normal [facility] NURSING PROG HNO ID: [id number] Author: WINIFRED HILLS RN Service: ? Author Type: Registered Nurse Type: Nursing Progress Note Filed: 07/07/2024 12:15 Note Text: Transfer Note: PATIENT NAME: Mel Castillo Patient Location: [place] [id number]/[id number] Room: [place] [address] Patient transferred into room/unit H60-31 in stable condition. Actions taken: Team notified. Patient belongings with patient. Pt oriented to the floor policy and fall prevention protocol. Call light within reach. Normal [facility] Nursing Noteon 07-07-2024 Nursing Note Report called to [facility]. Normal [facility] Progress Noteon 07-07-2024 Progress Note Nutrition rescreen completed. Chart reviewed. Patient to be monitored and followed by the diet communication technician. Normal [facility] Renal function 2000 panelon 07-07-2024 Albumin [Mass/Vol] 3.7 g/dL Low 3.9-4.9 [facility] Comment on above: Order Comment: Speci men Type: BLOOD SPECIMEN Ordering Facility: [facility] Address: [address] [place] [address] Performed By: #### 2 4362-6 #### [facility] CLIA [id number] [address] [place] [address] [id number], [place] [address] [place] Anion gap [Moles/Vol] 12 mmol/L Normal 8-15 [facility] Comment on above: Order Comment: Speci men Type: BLOOD SPECIMEN Ordering Facility: [facility] Address: [address] [place] [address] Performed By: #### 2 4362-6 #### [facility] CLIA [id number] [address] [place] [address] [place] Calcium [Mass/Vol] 9.2 mg/dL Normal 8.5-10.2 [facility] Comment on above: Order Comment: Speci men Type: BLOOD SPECIMEN Ordering Facility: [facility] Address: [address] [place] [address] Performed By: #### 2 4362-6 #### [facility] CLIA [id number] [address] [place] [address] [place] Chloride [Moles/Vol] 107 mmol/L Normal 98-107 [facility] Comment on above: Order Comment: Speci men Type: BLOOD SPECIMEN Ordering Facility: [facility] Address: [address] [place] [address] Performed By: #### 2 4362-6 #### [facility] CLIA [id number] [address] [place] [address] [place] CO2 [Moles/Vol] 20 mmol/L Low 22-30 [facility] Comment on above: Order Comment: Speci men Type: BLOOD SPECIMEN Ordering Facility: [facility] Address: [address] [place] [address] Performed By: #### 2 4362-6 #### [facility] CLIA [id number] [address] [place] [address] [place] Creatinine [Mass/Vol] 0.82 mg/dL Normal 0.58-0.96 [facility] Comment on above: Order Comment: Speci men Type: BLOOD SPECIMEN Ordering Facility: [facility] Address: [address] [place] [address] Performed By: #### 2 4362-6 #### [facility] CLIA [id number] [address] [place] [address] [place] Creatinine and Glomerular filtration rate.predicted panel (S/P/Bld) 71 mL/min/1.73m??? Normal >=60 [facility] Comment on above: Order Comment: Rhina mason Type: BLOOD SPECIMEN Ordering Facility: [facility] Address: [address] [place] [address] Result Comment: Isa mated Glomerular Filtration Rate [...] GFR. Performed By: #### 2 4362-6 #### [facility] CLIA [id number] [address] [place] [address] [place] Glucose [Mass/Vol] 106 mg/dL High 74-99 [facility] Comment on above: Order Comment: Rhina mason Type: BLOOD SPECIMEN Ordering Facility: [facility] Address: [address] [place] [address] Result Comment: The [place] Diabetes Association (ADA) provides guidance for cutoff [...] Standards of Medical Care in Diabetes 2016, [place] [employer]. Diabetes Care. 2016.39(Suppl 1). Performed By: #### 2 4362-6 #### [facility] CLIA [id number] [address] [place], [place] [address] [place] Phosphate [Mass/Vol] 3.0 mg/dL Normal 2.7-4.8 [facility] Comment on above: Order Comment: Speci men Type: BLOOD SPECIMEN Ordering Facility: [facility] Address: [address] [place] [address] Performed By: #### 2 4362-6 #### [facility] CLIA [id number] [address] [place] [address] [place] Potassium [Moles/Vol] 4.3 mmol/L Normal 3.7-5.1 [facility] Comment on above: Order Comment: Speci men Type: BLOOD SPECIMEN Ordering Facility: [facility] Address: [address] [place] [address] Performed By: #### 2 4362-6 #### [facility] CLIA [id number] [address] [place] [address] [place] Sodium [Moles/Vol] 139 mmol/L Normal 136-144 [facility] Comment on above: Order Comment: Speci men Type: BLOOD SPECIMEN Ordering Facility: [facility] Address: [address] [place] [address] Performed By: #### 2 4362-6 #### [facility] CLIA [id number] [address] [place] [address] [place] Urea nitrogen [Mass/Vol] 16 mg/dL Normal 7-21 [facility] Comment on above: Order Comment: Speci men Type: BLOOD SPECIMEN Ordering Facility: [facility] Address: [address] [place] [address] Performed By: #### 2 4362-6 #### [facility] CLIA [id number] [address] [place] [address] [place] [id number] 07-06-2024 [id number] Normal [facility] BASIC METABOLIC PANELon 12-2 Anion gap [Moles/Vol] 9 mmol/L Normal 3-13 [facility] Comment on above: Performed By: #### L AB15 ####Senior Vice President & General Counsel: VELMA VALADEZ ([phone])[facility] ([facility])[address] [place] [address] Calcium [Mass/Vol] 8.9 mg/dL Normal 8.8-10.0 [facility] Comment on above: Performed By: #### L AB15 ####Senior Vice President & General Counsel: VELMA VALADEZ ([phone])[facility] [place] [address] Chloride [Moles/Vol] 113 mmol/L High 98-107 [facility] Comment on above: Performed By: #### L AB15 ####Senior Vice President & General Counsel: VELMA VALADEZ ([phone])[facility] [place] [address] CO2 [Moles/Vol] 18 mmol/L Low 23-31 [facility] Comment on above: Performed By: #### L AB15 ####Senior Vice President & General Counsel: VELMA VALADEZ ([phone])[facility] ([facility])[address] [place] [address] Creatinine [Mass/Vol] 0.86 mg/dL Normal 0.57-1.11 [facility] Comment on above: Performed By: #### L AB15 ####Senior Vice President & General Counsel: VELMA VALADEZ ([phone])[facility] ([facility])[address] [place] [address] GLOMERULAR FILTRATION RATE ML/MIN/1.73 SQ M.PREDICTED 66.7 mL/min/1.73m*2 Normal >60.0 [facility] Comment on above: Result Comment: Calc ulation based on the Chronic Kidney Disease Epidemiology Collaboration (CKD-EPI) equation refit without adjustment for race Performed By: #### L AB15 ####Senior Vice President & General Counsel: VELMA VALADEZ ([phone])[facility] [place] [address] Glucose [Mass/Vol] 74 mg/dL Low 82-115 [facility] Comment on above: Performed By: #### L AB15 ####Senior Vice President & General Counsel: VELMA VALADEZ ([phone])[facility])[address] [place] [address] Potassium [Moles/Vol] 4.5 mmol/L Normal 3.5-5.1 [facility] Comment on above: Result Comment: [facility] potassium values may be up to 0.5 mmol/L lower than serum values. Performed By: #### L AB15 ####Senior Vice President & General Counsel: VELMA VALADEZ ([phone])[facility] ([facility])[address] [place] [address] Sodium [Moles/Vol] 140 mmol/L Normal 136-145 [facility] Comment on above: Performed By: #### L AB15 ####Senior Vice President & General Counsel: VELMA VALADEZ ([phone])[facility])[address] [place] [address] Urea nitrogen [Mass/Vol] 16 mg/dL Normal 9-23 [facility] Comment on above: Performed By: #### L AB15 ####Senior Vice President & General Counsel: VELMA VALADEZ ([phone])[facility])[address] [place] [address] Basic metabolic 1998 panelon 07-06-2024 Anion gap [...] (Bld) 0.3 % 0.0 - 6.0 % [facility] Erythrocyte distribution width (RBC) [Ratio] 17.8 [...] [facility] Immature granulocytes/100 WBC (Bld) 0.3 % 0.0 - 2.0 % [facility] Interpretation and review of laboratory results Abnormal [facility] Lymphocytes (Bld) [#/Vol] 1.2 10*3/uL 1.0 - 4.3 10*3/uL [facility] Lymphocytes/100 WBC (Bld) 18.9 % 15.0 - 45.0 % [facility] MCH (RBC) [Entitic mass] 26.4 pg 26.0 - 34.0 pg [facility] MCHC (RBC) [Mass/Vol] 30.5 % 30.5 - 36.0 % [facility] MCV (RBC) [Entitic vol] 86.4 fL 77.0 - 99.0 fL [facility] Monocytes (Bld) [#/Vol] 0.5 10*3/uL 0.0 - 0.9 10*3/uL [facility] Monocytes/100 WBC (Bld) 8.2 % 5.0 - 13.0 % [facility] Neutrophils (Bld) [#/Vol] 4.4 10*3/uL 1.8 - 7.5 10*3/uL [facility] Neutrophils/100 WBC (Bld) 71.8 % 38.0 - 82.0 % [facility] Nucleated RBC/100 WBC (Bld) [Ratio] 0 % [facility] Platelet mean volume (Bld) [Entitic vol] 10.9 fL 9.0 - 12.7 fL [facility] Platelets (Bld) [#/Vol] 278 10*3/uL 140 - 440 10*3/uL [facility] RBC (Bld) [#/Vol] 3.68 10*6/uL Low 3.80 - 5.2 0 10*6/uL [facility] WBC (Bld) [#/Vol] 6.1 10*3/uL 3.6 - 10.7 10*3/uL [facility] CBC WITH AUTO DIFFERENTIALon 07-06-2024 Basophils (Bld) [#/Vol] 0.0 10*3/uL Normal 0.0-0.2 [facility] Comment on above: Performed By: #### L [id number] ####Senior Vice President & General Counsel: VELMA VALADEZ ([phone])[facility] ([facility])[address] [place] [address] Basophils/100 WBC (Bld) 0.5 % Normal 0.0-2.0 [facility] Comment on above: Performed By: #### L [id number] ####Senior Vice President & General Counsel: VELMA VALADEZ ([phone])[facility] ([facility])[address] [place] [address] Eosinophils (Bld) [#/Vol] 0.0 10*3/uL Normal 0.0-0.5 [facility] Comment on above: Performed By: #### L [id number] ####Senior Vice President & General Counsel: VELMA VALADEZ ([phone])[facility])[address] [place] [address] Eosinophils/100 WBC (Bld) 0.3 % Normal 0.0-6.0 [facility] Comment on above: Performed By: #### L [id number] ####Senior Vice President & General Counsel: VELMA VALADEZ ([phone])[facility])[address] [place] [address] Erythrocyte distribution width (RBC) [Ratio] 17.8 % High 11.5-15.0 [facility] Comment on above: Performed By: #### L [id number] ####Senior Vice President & General Counsel: VELMA VALADEZ ([phone])[facility])[address] [place] [address] Hematocrit (Bld) [Volume fraction] 31.8 % Low 35.0-47.0 [facility] Comment on above: Performed By: #### L [id number] ####Senior Vice President & General Counsel: VELMA VALADEZ ([phone])[facility])[address] [place] [address] Hemoglobin (Bld) [Mass/Vol] 9.7 g/dL Low 11.7-16.0 [facility] Comment on above: Performed By: #### L [id number] ####Senior Vice President & General Counsel: VELMA VALADEZ ([phone])[facility])[address] [place] [address] IMMATURE GRANS % 0.3 % Normal 0.0-2.[address] [facility] Comment on above: Performed By: #### L [id number] ####Senior Vice President & General Counsel: VELMA VALADEZ ([phone])[facility])[address] [place] [address] IMMATURE GRANS ABSOLUTE 0.0 10*3/uL Normal <0.1 [facility] Comment on above: Performed By: #### L [id number] ####Senior Vice President & General Counsel: VELMA VALADEZ ([phone])[facility])[address] [place] [address] [place] Lymphocytes (Bld) [#/Vol] 1.2 10*3/uL Normal 1.0-4.3 [facility] Comment on above: Performed By: #### L [id number] ####Senior Vice President & General Counsel: VELMA VALADEZ ([phone])[facility])[address] [place] [address] Lymphocytes/100 WBC (Bld) 18.9 % Normal 15.0-45.0 [facility] Comment on above: Performed By: #### L [id number] ####Senior Vice President & General Counsel: VELMA VALADEZ ([phone])[facility])[address] [place] [address] MCH (RBC) [Entitic mass] 26.4 pg Normal 26.0-34.0 [facility] Comment on above: Performed By: #### L [id number] ####Senior Vice President & General Counsel: VELMA VALADEZ ([phone])[facility])[address] [place] [address] MCHC 30.5 % Normal 30.5-36.0 [facility] Comment on above: Performed By: #### L [id number] ####Senior Vice President & General Counsel: VELMA VALADEZ ([phone])[facility])[address] [place] [address] MCV (RBC) [Entitic vol] 86.4 fL Normal 77.0-99.0 [facility] Comment on above: Performed By: #### L [id number] ####Senior Vice President & General Counsel: VELMA VALADEZ ([phone])[facility])[address] [place] [address] Monocytes (Bld) [#/Vol] 0.5 10*3/uL Normal 0.0-0.9 [facility] Comment on above: Performed By: #### L [id number] ####Senior Vice President & General Counsel: VELMA VALADEZ ([phone])[facility])[address] [place] [address] Monocytes/100 WBC (Bld) 8.2 % Normal 5.0-13.0 [facility] Comment on above: Performed By: #### L [id number] ####Senior Vice President & General Counsel: VELMA VALADEZ ([phone])[facility] ([facility])[address] [place] [address] NEUTROPHILS ABSOLUTE 4.4 10*3/uL Normal 1.8-7.5 [facility] Comment on above: Performed By: #### L [id number] ####Senior Vice President & General Counsel: VELMA VALADEZ ([phone])[facility] ([facility])[address] [place] [address] Neutrophils/100 WBC (Bld) 71.8 % Normal 38.0-82.0 [facility] Comment on above: Performed By: #### L [id number] ####Senior Vice President & General Counsel: VELMA VALADEZ ([phone])[facility] ([facility])[address] [place] [address] NRBC 0.0 /100 WBCs Normal 0.0-2.0 [facility] Comment on above: Performed By: #### L [id number] ####Senior Vice President & General Counsel: VELMA VALADEZ ([phone])[facility] ([facility])[address] [place] [address] Platelet mean volume (Bld) [Entitic vol] 10.9 fL Normal 9.0-12.7 [facility] Comment on above: Performed By: #### L [id number] ####Senior Vice President & General Counsel: VELMA VALADEZ ([phone])[facility] ([facility])[address] [place] [address] Platelets (Bld) [#/Vol] 278 10*3/uL Normal 140-440 [facility] Comment on above: Performed By: #### L [id number] ####Senior Vice President & General Counsel: VELMA VALADEZ ([phone])[facility] ([facility])[address] [place] [address] RBC (Bld) [#/Vol] 3.68 10*6/uL Low 3.80-5.20 [facility] Comment on above: Performed By: #### L [id number] ####Senior Vice President & General Counsel: VELMA [id number])[facility] ([facility])[address] [place] [address] WBC (Bld) [#/Vol] 6.1 10*3/uL Normal 3.6-10.7 [facility] Comment on above: Performed By: #### L [id number] ####Senior Vice President & General Counsel: VELMA VALADEZ ([phone])[facility] ([facility])[address] [place] [address] CNPNon 07-06-2024 CNPN Telephone (OPHTMN) MEL GUADARRAMA ([id number]) 1940 [facility] Department 07/06/24 RYAN ELIZONDO During your visit today, we recorded the following information about you: Ryan Elizondo MD 07/06/2024 2:42 PM Signed TELEPHONE ENCOUNTER 07/06/2024 Patient with recent stroke and admitted to [facility] where she was noted to have elevated IOP with retinal detachment of the right eye by consult back sizer. 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 - bjvucqxiwiw-rbyxveuje-g ilanter (TRELEGY ELLIPTA) 100-62.5-25 mcg inhalation powder [...] Status:Closed by RYAN ELIZONDO on 07/06/24 [facility]24 Consult Normal [facility] Nursing Noteon 07-06-2024 Nursing Note This RN called Protective Services to try and locate pts lost glasses from 07/05/2024. Glasses that match the description are in lost and found. Will attempt to see if glasses are a match. Normal [facility] Progress Noteon 07-06-2024 Progress Note Normal [facility] Progress Note Normal [facility] CBC (HEMOGRAM)on 07-05-2024 Erythrocyte distribution width (RBC) [Ratio] 17.2 % High 11.5-15.0 [facility] Comment on above: Performed By: #### L [id number] ####Senior Vice President & General Counsel: VELMA VALADEZ ([phone])[address] Hematocrit (Bld) [Volume fraction] 32.8 % Low 35.0-47.0 [facility] Comment on above: Performed By: #### L [id number] ####Senior Vice President & General Counsel: VELMA VALADEZ ([phone])[address] Hemoglobin (Bld) [Mass/Vol] 10.6 g/dL Low 11.7-16.0 [facility] Comment on above: Performed By: #### L [id number] ####Senior Vice President & General Counsel: VELMA VALADEZ ([phone])[address] MCH (RBC) [Entitic mass] 26.4 pg Normal 26.0-34.0 [facility] Comment on above: Performed By: #### L [id number] ####Senior Vice President & General Counsel: VELMA VALADEZ ([phone])[facility])[address] [place] [address] MCHC 32.3 % Normal 30.5-36.0 [facility] Comment on above: Performed By: #### L [id number] ####Senior Vice President & General Counsel: VELMA VALADEZ ([phone])[facility])[address] [place] [address] MCV (RBC) [Entitic vol] 81.8 fL Normal 77.0-99.0 [facility] Comment on above: Performed By: #### L [id number] ####Senior Vice President & General Counsel: VELMA VALADEZ ([phone])[facility])[address] [place] [address] Platelet mean volume (Bld) [Entitic vol] 9.6 fL Normal 9.0-12.7 [facility] Comment on above: Performed By: #### L [id number] ####Senior Vice President & General Counsel: VELMA VALADEZ ([phone])[facility] ([facility])[address] [place] [address] Platelets (Bld) [#/Vol] 349 10*3/uL Normal 140-440 [facility] Comment on above: Performed By: #### L [id number] ####Senior Vice President & General Counsel: VELMA VALADEZ ([phone])[facility])[address] [place] [address] RBC (Bld) [#/Vol] 4.01 10*6/uL Normal 3.80-5.20 [facility] Comment on above: Performed By: #### L [id number] ####Senior Vice President & General Counsel: VELMA VALADEZ ([phone])[facility])[address] [place] [address] WBC (Bld) [#/Vol] 5.5 10*3/uL Normal 3.6-10.7 [facility] Comment on above: Performed By: #### L [id number] ####Senior Vice President & General Counsel: VELMA VALADEZ ([phone])[facility] ([facility])[address] [place] [address] CBC panel Auto (Bld)on 07-05 Erythrocyte distribution [...] 07-05-2024 Albumin [Mass/Vol] 3.6 g/dL Normal 3.4-4.8 [facility] Comment on above: Performed By: #### L [id number], LAB17 ####Senior Vice President & General Counsel: VELMA VALADEZ ([phone])[facility] ([facility])[address] [place] [address] ALP [Catalytic activity/Vol] 94 U/L Normal 40-150 [facility] Comment on above: Performed By: #### L [id number], LAB17 ####Senior Vice President & General Counsel: VELMA VALADEZ ([phone])[facility] ([facility])[address] [place] [address] [place] ALT [Catalytic activity/Vol] 23 U/L Normal <30 [facility] Comment on above: Performed By: #### L [id number], LAB17 ####Senior Vice President & General Counsel: VELMA VALADEZ ([phone])[facility] ([facility])[address] [place] [address] Anion gap [Moles/Vol] 10 mmol/L Normal 3-13 [facility] Comment on above: Performed By: #### L [id number], LAB17 ####Senior Vice President & General Counsel: VELMA VALADEZ ([phone])[facility] ([facility])[address] [place] [address] AST [Catalytic activity/Vol] 26 U/L Normal <34 [facility] Comment on above: Performed By: #### L [id number], LAB17 ####Senior Vice President & General Counsel: VELMA VALADEZ ([phone])[facility] ([facility])[address] [place] [address] Bilirubin [Mass/Vol] 0.7 mg/dL Normal <1.2 [facility] Comment on above: Performed By: #### L [id number], LAB17 ####Senior Vice President & General Counsel: VELMA VALADEZ ([phone])[facility] ([facility])[address] [place] [address] Calcium [Mass/Vol] 9.2 mg/dL Normal 8.8-10.0 [facility] Comment on above: Performed By: #### L [id number], LAB17 ####Senior Vice President & General Counsel: VELMA VALADEZ ([phone])[facility] ([facility])[address] [place] [address] [place] Chloride [Moles/Vol] 107 mmol/L Normal 98-107 [facility] Comment on above: Performed By: #### L [id number], LAB17 ####Senior Vice President & General Counsel: VELMA VALADEZ ([phone])[facility] ([facility])[address] [place] [address] [place] CO2 [Moles/Vol] 22 mmol/L Low 23-31 [facility] Comment on above: Performed By: #### L [id number], LAB17 ####Senior Vice President & General Counsel: VELMA VALADEZ ([phone])[facility])[address] [place] [address] Creatinine [Mass/Vol] 0.82 mg/dL Normal 0.57-1.11 [facility] Comment on above: Performed By: #### L [id number], LAB17 ####Senior Vice President & General Counsel: VELMA VALADEZ ([phone])[facility])[address] [place] [address] GLOMERULAR FILTRATION RATE ML/MIN/1.73 SQ M.PREDICTED 70.6 mL/min/1.73m*2 Normal >60.0 [facility] Comment on above: Result Comment: Calc ulation based on the Chronic Kidney Disease Epidemiology Collaboration (CKD-EPI) equation refit without adjustment for race Performed By: #### L [id number], LAB17 ####Senior Vice President & General Counsel: VELMA VALADEZ ([phone])[facility] ([facility])[address] [place] [address] Glucose [Mass/Vol] 118 mg/dL High 82-115 [facility] Comment on above: Performed By: #### L [id number], LAB17 ####Senior Vice President & General Counsel: VELMA VALADEZ ([phone])[facility])[address] [place] [address] Potassium [Moles/Vol] 4.3 mmol/L Normal 3.5-5.1 [facility] Comment on above: Result Comment: [facility] potassium values may be up to 0.5 mmol/L lower than serum values. Performed By: #### L [id number], LAB17 ####Senior Vice President & General Counsel: VELMA VALADEZ ([phone])[facility])[address] [place] [address] Protein [Mass/Vol] 7.0 g/dL Normal 6.4-8.3 [facility] Comment on above: Performed By: #### L [id number], LAB17 ####Senior Vice President & General Counsel: VELMA VALADEZ ([phone])[facility])[address] [place] [address] Sodium [Moles/Vol] 139 mmol/L Normal 136-145 [facility] Comment on above: Performed By: #### L [id number], LAB17 ####Senior Vice President & General Counsel: VELMA VALADEZ ([phone])[address] Urea nitrogen [Mass/Vol] 13 mg/dL Normal 9-23 [facility] Comment on above: Performed By: #### L [id number], LAB17 ####Senior Vice President & General Counsel: VELMA VALADEZ ([phone])[address] HEAD NECK ANGIO W AND WO IV CONTRASTon 07-05-2024 CT HEAD NECK ANGIO W AND WO IV CONTRAST Normal [facility] CT HEAD WO IV CONTRASTon CT HEAD WO IV CONTRAST Normal [facility] CT Head WO contraston 2023 Patient Name: MEL CARVER RD : 1940 [facility]#: [id number] Exam Date/Time: 07/05/2024 04:36 Procedure: CT HEAD [...] content not included)... [facility], Cirilo Khalil MD - 07/05/2024 [facility]: [facility] POP [facility] 1940 [id number] Exam Date/Time: 07/05/2024 04:36 Procedure: CT HEAD [...] Hospital CT PERFUSIONon 07-05-2024 CT PERFUSION Normal [facility] CTA Head vessels and Neck ve [...] 07/05/2024 [facility]: MEL POP [facility] 1940 [id number] Exam Date/Time: 07/05/2024 04:36 Procedure: CT HEAD [...] [facility] ALT [Catalytic activity/Vol] 23 U/L NINF - 30 U/L [facility] Anion gap [Moles/Vol] 10 mmol/L 3 - 13 mmol/L [facility] AST [Catalytic activity/Vol] 26 U/L NINF - 34 U/L [facility] Bilirubin [Mass/Vol] 0.7 mg/dL NINF - [facility] 07-05-2024 Consult Normal [facility] Consult Normal [facility] Consult Normal [facility] Consult Normal [facility] ECG 12-LEADon 07-05-2024 ECG 12-LEAD IMPRESSION: Atrial fibrillation Electronically Signed On 07-05-2024 12:39:21 EST by Jhonatan Hernandez Normal [facility] ED Nursing Noteon 07-05-[address] Carlson at bedside. Normal [facility] ED Nursing Note Provider notified of patient request for pain meds. Normal [facility] ED Nursing Note Dr. Carlson at bedside Normal [facility] ED Nursing Note Patient is returning back to room 32 at this time with Jose, Medic. Normal [facility] ED Nursing Note Pt emergently going to eye clinic. Pt being transported in wheelchair with trauma float RADHA Hinkle and Maritza RN Pt being transported on zoll monitor and acls kit. Normal [facility] ED Nursing Note Ophthalmology at bedside [facility] ED Nursing Note Report to Maritza FRAGA [facility] ED Provider Noteon ED Provider Note Normal [facility] HEMOGLOBIN A1Con 07-05-2024 Glucose [Mass/Vol] 120 mg/dL [facility] Comment on above: Result Comment: BUBBA Garcia COMMENTS:HbA1c values of 5.7-6.4 percent indicate an increased risk for developing diabetes mellitus. HbA1c values greater than or equal to 6.5 percent are diagnostic of diabetes mellitus. For diagnosis of diabetes in individuals without unequivocal hyperglycemia, results should be confirmed by repeat testing. Performed By: #### L [id number] ####Senior Vice President & General Counsel: VELMA VALADEZ ([phone])[facility] ([facility])[address] [place] [address] HEMOGLOBIN A1C 5.8 %HbA1C High <5.7 [facility] Comment on above: Result Comment: Norm al less than 5.7%Prediabetes 5.7% to 6.4%Diabetes 6.5% or higher--HgbA1C levels may not be accurate in patients who have renal disease, received recent blood transfusions, are anemic, or who have dyshemoglobinemia. Performed By: #### L [id number] ####Senior Vice President & General Counsel: VELMA VALADEZ ([phone])[facility])[address] [place] [address] HIGH SENSITIVITY TROPONIN, S ERIAL BASELINEon 07-05-2024 TROPONIN HIGH SENSITIVITY BASELINE 14 ng/L Normal <=14 [facility] Comment on above: Performed By: #### L [id number] ####Senior Vice President & General Counsel: VELMA VALADEZ ([phone])[facility] ([facility])[address] [place] [address] HIGH SENSITIVITY TROPONIN, S ERIAL, SECOND TESTon 07-05-2024 TROPONIN HS DELTA, BASELINE TO SECOND -5 ng/L Normal <=2 [facility] Comment on above: Result Comment: This [...] further clinical guidance. Performed By: #### L [id number], [id number] ####Senior Vice President & General Counsel: VELMA VALADEZ ([phone])[facility] ([facility])[address] [place] [address] TROPONIN HS, SERIAL REFLEX, TEST TWO 9 ng/L Normal <=14 [facility] Comment on above: Performed By: #### L [id number], [id number] ####Senior Vice President & General Counsel: VELMA VALADEZ ([id number])[facility] ([facility])[address] [place] [address] Laboratory - Chemistry and C hemistry - challengeon 07-05-2024 Average glucose Estimated from glycated hemoglobin (Bld) [Mass/Vol] 120 mg/dL [facility] Anion gap (Bld) [Moles/Vol] 8 mmol/L 3.00 - 13.00 [facility] Calcium.ionized (Bld) [Moles/Vol] 4.5 mg/dl 4.30 - 5.20 mg/dl [facility] Comment on above: Performed by [employer] CLIA ID:[id number] [place], [place] Device: [id number] [place] ID: [id number] Chloride [Moles/Vol] 108 mmol/L 98 - 11 4 mmol/L [facility] CO2 [Moles/Vol] 23 mmol/L 21 - 29 mmol/L [facility] Creatinine [Mass/Vol] 0.9 mg/dL 0.6 - 1.3 mg/dL [facility] GFR/1.73 sq M.predicted CKD-EPI (S/P/Bld) [Vol rate/Area] [...] 104 mg/dL High 70 - 100 mg/dL [facility] Potassium [Moles/Vol] 4.5 mmol/L 3.4 - 5.1 mmol/L [facility] Sodium [Moles/Vol] 139 mmol/L 133 - 145 mmol/L [facility] Urea (Bld) [Mass/Vol] 14 mg/dL 4 - 22 mg/dL [facility] Glucose [Mass/Vol] 104 mg/dL High 70 - 100 mg/dL [facility] Laboratory - Coagulationon 1 09-05-2023 aPTT Coag [...] HbA1c (Bld) [Mass fraction] 5.8 % [facility] Comment on above: Normal less than [...] Signed Date/Time: 07/05/2024 12:13 PM [facility] [employer] Patient Name: MEL CARVER RD : [...] artifact within the right globe. [facility] Ming Fry MD - 07/05/2024 Patient Name: MEL POP : 1940 [facility]#: [id number] Exam Date/Time: 07/05/2024 11:45 Procedure: MR BRAIN [...] Electronically Signed Date/Time: 07/05/2024 12:13 PM EST [facility] Radiology Study observation (narrative) [facility] MR Brain WO contrastOrdered By: Ming Fry on 07-05-2024 [facility] Work Phone: No Panel Informationon 07-05 Heart Rate 59 bpm [facility] P [place] 0 degrees [facility] UT Interval 0 ms [facility] QRS [place] 37 degrees [facility] QRSD Interval 98 ms [facility] QT Interval 423 ms [facility] QTC Interval 418 ms [facility] T Wave [place] 29 degrees [facility] Atrial [...] Patient Name: MEL CARVER RD : 1940 [facility]#: [id number] Exam Date/Time: 07/05/2024 04:36 Procedure: CT PERFUSION [...] content not included)... [facility], Cirilo Khalil MD - 07/05/2024 [facility]: [facility] 1940 [id number] Exam Date/Time: 07/05/2024 04:36 Procedure: CT PERFUSION [...] laboratory results Normal [facility] Troponin HS, Serial Baseline 14 ng/L NINF - 14 ng/L [facility] Interpretation and review of laboratory results Normal [facility] Interpretation and review of laboratory results Abnormal [facility] Performed by: [facility], [address] [place] [address] CLIA ID: [id number] [facility] Radiology Study observation (narrative) [facility] Interpretation and review of laboratory results Abnormal [facility] Performed by: [facility], [address] [address] CLIA ID: [id number] [facility] No Panel InformationOrdered By: Cirilo Ray on 07-05-2024 [facility] Work Phone: PROTIME AND APTTon aPTT Coag (Bld) [Time] 30.4 s Normal 20.0-30.5 [facility] Comment on above: Performed By: #### L [id number] ####Senior Vice President & General Counsel: VELMA VALADEZ ([phone])[facility] ([facility])[address] [place] [address] INR Coag (PPP) [Relative time] 1.0 {INR} Normal 0.9-1.1 [facility] Comment on above: Result Comment: Timothy [...] prevent Myocardial Infarction Performed By: #### L [id number] ####Senior Vice President & General Counsel: VELMA VALADEZ ([phone])[facility] ([facility])[address] [place] [address] PT Coag (PPP) [Time] 11.7 s Normal 9.0-12.0 [facility] Comment on above: Performed By: #### L [id number] ####Senior Vice President & General Counsel: VELMA VALADEZ ([phone])[facility] ([facility])[address] [place] [address] Progress Noteon 07-05-2024 Progress Note Normal [facility] CBC panel Auto (Bld)on 07-02 Erythrocyte distribution width (RBC) [Ratio] 16.9 % High 11.5 - 15.0 % [facility] Hematocrit (Bld) [Volume fraction] 29.6 % Low 36.0 - 46.0 % [facility] Hemoglobin (Bld) [Mass/Vol] 9.3 g/dL Low 11.5 - 15.5 g/dL [facility] Interpretation and review of laboratory results Abnormal [facility] MCH (RBC) [Entitic mass] 26.7 pg 26.0 - 34.0 pg [facility] MCHC (RBC) [Mass/Vol] 31.4 g/dL 30.5 - 36.0 g/dL [facility] MCV (RBC) [Entitic vol] 85.1 fL 80.0 - 100.0 fL [facility] Nucleated RBC (Bld) [#/Vol] NINF [facility] Platelet mean volume (Bld) [Entitic vol] 10.2 fL 9.0 - 12.7 fL [facility] Platelets (Bld) [#/Vol] 324 10*3/uL [facility] RBC (Bld) [#/Vol] 3.48 10*6/uL Low 3.90 - 5.2 0 m/uL [facility] WBC (Bld) [#/Vol] 5.12 10*3/uL [facility] Erythrocyte distribution width (RBC) [Ratio] 16.9 % High 11.5-15.0 [facility] Comment on above: Order Comment: Speci men Type: BLOOD SPECIMENOrdering Facility: [facility] Address: [address] [place] [address] Performed By: #### 5 8410-2 ####[facility] LABORATORYCLIA [id number] [place] [address] [place] [facility] Hematocrit (Bld) [Volume fraction] 29.6 % Low 36.0-46.0 [facility] Comment on above: Order Comment: Speci men Type: BLOOD SPECIMENOrdering Facility: [facility] Address: [address] [place] [address] Performed By: #### 5 8410-2 ####[facility]ORATORYCLIA [id number] [place] [address] [place] Hemoglobin (Bld) [Mass/Vol] 9.3 g/dL Low 11.5-15.5 [facility] Comment on above: Order Comment: Speci men Type: BLOOD SPECIMENOrdering Facility: [facility] Address: [address] [place] [address] Performed By: #### 5 8410-2 ####[facility]ORATORYCLIA [id number] [address] MCH (RBC) [Entitic mass] 26.7 pg Normal 26.0-34.0 [facility] Comment on above: Order Comment: Speci men Type: BLOOD SPECIMENOrdering Facility: [facility] Address: [address] [place] [address] Performed By: #### 5 8410-2 ####[facility] LABORATORYCLIA [id number] [address] [place] MCHC (RBC) [Mass/Vol] 31.4 g/dL Normal 30.5-36.0 [facility] Comment on above: Order Comment: Speci men Type: BLOOD SPECIMENOrdering Facility: [facility] Address: [address] [place] [address] Performed By: #### 5 8410-2 ####[facility] LABORATORYCLIA [id number] [address] STATES [facility] MCV (RBC) [Entitic vol] 85.1 fL Normal 80.0-100.0 C [facility] Comment on above: Order Comment: Speci men Type: BLOOD SPECIMENOrdering Facility: [facility] Address: [address] [place] [address] Performed By: #### 5 8410-2 ####[facility] LABORATORYCLIA [id number] [address] Nucleated RBC (Bld) [#/Vol] 10*3/uL Normal <0.01 [facility] Comment on above: Order Comment: Speci men Type: BLOOD SPECIMENOrdering Facility: [facility] Address: [address] [place] [address] Performed By: #### 5 8410-2 ####[facility] LABORATORYCLIA [id number] [address] Platelet mean volume (Bld) [Entitic vol] 10.2 fL Normal 9.0-12.7 [facility] Comment on above: Order Comment: Speci men Type: BLOOD SPECIMENOrdering Facility: [facility] Address: [address] [place] [address] Performed By: #### 5 8410-2 ####[facility] LABORATORYCLIA [id number] [place] [address] [place] Platelets (Bld) [#/Vol] 324 10*3/uL Normal 150-400 [facility] Comment on above: Order Comment: Speci men Type: BLOOD SPECIMENOrdering Facility: [facility] Address: [address] [place] [address] Performed By: #### 5 8410-2 ####[facility] LABORATORYCLIA [id number] [place] [address] [place] RBC (Bld) [#/Vol] 3.48 10*6/uL Low 3.90-5.20 [facility] Comment on above: Order Comment: Speci men Type: BLOOD SPECIMENOrdering Facility: [facility] Address: [address] [place] [address] Performed By: #### 5 8410-2 ####[facility] LABORATORYCLIA [id number] [address] [place] WBC (Bld) [#/Vol] 5.12 10*3/uL Normal 3.70-11.00 [facility] Comment on above: Order Comment: Speci men Type: BLOOD SPECIMENOrdering Facility: [facility] Address: [address] [place] [address] Performed By: #### 5 8410-2 ####[facility] LABORATORYCLIA [id number] [address] [place] CBC panel Auto (Bld)on 06-28 Erythrocyte distribution width (RBC) [Ratio] 16.6 % High 11.5 - 15.0 % [facility] Hematocrit (Bld) [Volume fraction] 28.8 % Low 36.0 - 46.0 % [facility] Hemoglobin (Bld) [Mass/Vol] 9.0 g/dL Low 11.5 - 15.5 g/dL [facility] Interpretation and review of laboratory results Abnormal [facility] MCH (RBC) [Entitic mass] 26.8 pg 26.0 - 34.0 pg [facility] MCHC (RBC) [Mass/Vol] 31.3 g/dL 30.5 - 36.0 g/dL [facility] MCV (RBC) [Entitic vol] 85.7 fL 80.0 - 100.0 fL [facility] Nucleated RBC (Bld) [#/Vol] NINF [facility] Platelet mean volume (Bld) [Entitic vol] 10.5 fL 9.0 - 12.7 fL [facility] Platelets (Bld) [#/Vol] 316 10*3/uL [facility] RBC (Bld) [#/Vol] 3.36 10*6/uL Low 3.90 - 5.2 0 m/uL [facility] WBC (Bld) [#/Vol] 5.27 10*3/uL [facility] Erythrocyte distribution width (RBC) [Ratio] 16.6 % High 11.5-15.0 [facility] Comment on above: Order Comment: Rhina mason Type: BLOOD SPECIMEN Ordering Facility: [facility] Address: [address] [place] [address] Performed By: #### 2 276-4 #### [facility] CLIA [id number] [address] [place] [address] [place] Hematocrit (Bld) [Volume fraction] 28.8 % Low 36.0-46.0 [facility] Comment on above: Order Comment: Rhina mason Type: BLOOD SPECIMEN Ordering Facility: [facility] Address: [address] [place] [address] Performed By: #### 2 276-4 #### [facility] CLIA [id number] [address] [place] [address] [place] Hemoglobin (Bld) [Mass/Vol] 9.0 g/dL Low 11.5-15.5 [facility] Comment on above: Order Comment: Rhina mason Type: BLOOD SPECIMEN Ordering Facility: [facility] Address: [address] [place] [address] Performed By: #### 2 276-4 #### [facility] CLIA [id number] [address] [place] [address] [place] MCH (RBC) [Entitic mass] 26.8 pg Normal 26.0-34.0 [facility] Comment on above: Order Comment: Speci men Type: BLOOD SPECIMEN Ordering Facility: [facility] Address: [address] [place] [address] Performed By: #### 2 276-4 #### [facility] CLIA [id number] [address] [place] [address] [place] MCHC (RBC) [Mass/Vol] 31.3 g/dL Normal 30.5-36.0 [facility] Comment on above: Order Comment: Speci men Type: BLOOD SPECIMEN Ordering Facility: [facility] Address: [address] [place] [address] Performed By: #### 2 276-4 #### [facility] CLIA [id number] [address] [place] [address] [place] MCV (RBC) [Entitic vol] 85.7 fL Normal 80.0-100.0 [facility] Comment on above: Order Comment: Speci men Type: BLOOD SPECIMEN Ordering Facility: [facility] Address: [address] [place] [address] Performed By: #### 2 276-4 #### [facility] CLIA [id number] [address] [place] [address] [place] Nucleated RBC (Bld) [#/Vol] 10*3/uL Normal <0.01 [facility] Comment on above: Order Comment: Speci men Type: BLOOD SPECIMEN Ordering Facility: [facility] Address: [address] [place] [address] Performed By: #### 2 276-4 #### [facility] CLIA [id number] [address] [place] [address] [place] Platelet mean volume (Bld) [Entitic vol] 10.5 fL Normal 9.0-12.7 [facility] Comment on above: Order Comment: Speci men Type: BLOOD SPECIMEN Ordering Facility: [facility] Address: [address] [place] [address] Performed By: #### 2 276-4 #### [facility] CLIA [id number] [address] [place] [address] [place] Platelets (Bld) [#/Vol] 316 10*3/uL Normal 150-400 [facility] Comment on above: Order Comment: Speci men Type: BLOOD SPECIMEN Ordering Facility: [facility] Address: [address] [place] [address] Performed By: #### 2 276-4 #### [facility] CLIA [id number] [address] [place] [address] [place] RBC (Bld) [#/Vol] 3.36 10*6/uL Low 3.90-5.20 [facility] Comment on above: Order Comment: Speci men Type: BLOOD SPECIMEN Ordering Facility: [facility] Address: [address] [place] [address] Performed By: #### 2 276-4 #### [facility] CLIA [id number] [address] [place] [address] [place] WBC (Bld) [#/Vol] 5.27 10*3/uL Normal 3.70-11.00 [facility] Comment on above: Order Comment: Speci men Type: BLOOD SPECIMEN Ordering Facility: [facility] Address: [address] [place] [address] Performed By: #### 2 276-4 #### [facility] CLIA [id number] [address] [place] [address] [place] FERRITINon 06-27-2024 Ferritin [Mass/Vol] 67.5 ng/mL 14.7 - 205.1 ng/mL [facility] Ferritin SerPl-mCncon 2023 Ferritin [Mass/Vol] 67.5 ng/mL Normal 14.7-205.1 [facility] Comment on above: Order Comment: Speci men Type: BLOOD SPECIMEN Ordering Facility: [facility] Address: [address] [place] [address] Performed By: #### 2 276-4 #### [facility] CLIA [id number] [address] [place] [address] [place] Ferritin [Mass/Vol]on 2023 Interpretation and review of laboratory results Normal [facility] Iron and Iron binding capaci ty panelon 06-27-2024 Interpretation and review of laboratory results Abnormal [facility] Iron [Mass/Vol] 30 ug/dL Low 41 - 186 ug/dL [facility] Iron binding capacity [Mass/Vol] 298 ug/dL 232 - 386 ug/dL [facility] Iron/TIBC [Molar ratio] 10.1 % Low 15.0 - 57.0 % [facility] Iron [Mass/Vol] 30 ug/dL Low 41-186 [facility] Comment on above: Order Comment: Speci men Type: BLOOD SPECIMEN Ordering Facility: [facility] Address: [address] [place] [address] Performed By: #### 2 276-4 #### [facility] CLIA [id number] [address] [place] [address] [place] [facility] Iron binding capacity [Mass/Vol] 298 ug/dL Normal 232-386 [facility] Comment on above: Order Comment: Speci men Type: BLOOD SPECIMEN Ordering Facility: [facility] Address: [address] [place] [address] Performed By: #### 2 276-4 #### [facility] CLIA [id number] [address] [place] [address] [place] Iron/TIBC [Molar ratio] 10.1 % Low 15.0-57.0 C [facility] Comment on above: Order Comment: Speci men Type: BLOOD SPECIMEN Ordering Facility: [facility] Address: [address] [place] [address] Performed By: #### 2 276-4 #### [facility] CLIA [id number] [address] [place] [address] [place] CBC panel Auto (Bld)on 06-25 Erythrocyte distribution width (RBC) [Ratio] 15.9 % High 11.5 - 15.0 % [facility] Hematocrit (Bld) [Volume fraction] 28.7 % Low 36.0 - 46.0 % [facility] Hemoglobin (Bld) [Mass/Vol] 9.0 g/dL Low 11.5 - 15.5 g/dL [facility] Interpretation and review of laboratory results Abnormal [facility] MCH (RBC) [Entitic mass] 26.7 pg 26.0 - 34.0 pg [facility] MCHC (RBC) [Mass/Vol] 31.4 g/dL 30.5 - 36.0 g/dL [facility] MCV (RBC) [Entitic vol] 85.2 fL 80.0 - 100.0 fL [facility] Nucleated RBC (Bld) [#/Vol] NINF [facility] Platelet mean volume (Bld) [Entitic vol] 10.8 fL 9.0 - 12.7 fL [facility] Platelets (Bld) [#/Vol] 315 10*3/uL [facility] RBC (Bld) [#/Vol] 3.37 10*6/uL Low 3.90 - 5.2 0 m/uL [facility] WBC (Bld) [#/Vol] 4.96 10*3/uL [facility] Erythrocyte distribution width (RBC) [Ratio] 15.9 % High 11.5-15.0 [facility] Comment on above: Order Comment: Speci men Type: BLOOD SPECIMEN Ordering Facility: [facility] Address: [address] [place] [address] Performed By: #### 2 4362-6 #### [facility] CLIA [id number] [address] [place] [address] [place] Hematocrit (Bld) [Volume fraction] 28.7 % Low 36.0-46.0 [facility] Comment on above: Order Comment: Speci men Type: BLOOD SPECIMEN Ordering Facility: [facility] Address: [address] [place] [address] Performed By: #### 2 4362-6 #### [facility] CLIA [id number] [address] [place] [address] [place] Hemoglobin (Bld) [Mass/Vol] 9.0 g/dL Low 11.5-15.5 [facility] Comment on above: Order Comment: Speci men Type: BLOOD SPECIMEN Ordering Facility: [facility] Address: [address] [place] [address] Performed By: #### 2 4362-6 #### [facility] CLIA [id number] [address] [place] [address] [place] MCH (RBC) [Entitic mass] 26.7 pg Normal 26.0-34.0 [facility] Comment on above: Order Comment: Speci men Type: BLOOD SPECIMEN Ordering Facility: [facility] Address: [address] [place] [address] Performed By: #### 2 4362-6 #### [facility] CLIA [id number] [address] [place] [address] [place] MCHC (RBC) [Mass/Vol] 31.4 g/dL Normal 30.5-36.0 [facility] Comment on above: Order Comment: Speci men Type: BLOOD SPECIMEN Ordering Facility: [facility] Address: [address] [place] [address] Performed By: #### 2 4362-6 #### [facility] CLIA [id number] [address] [place] [address] [place] MCV (RBC) [Entitic vol] 85.2 fL Normal 80.0-100.0 C [facility] Comment on above: Order Comment: Speci men Type: BLOOD SPECIMEN Ordering Facility: [facility] Address: [address] [place] [address] Performed By: #### 2 4362-6 #### [facility] CLIA [id number] [address] [place] [address] [place] Nucleated RBC (Bld) [#/Vol] 10*3/uL Normal <0.01 [facility] Comment on above: Order Comment: Speci men Type: BLOOD SPECIMEN Ordering Facility: [facility] Address: [address] [place] [address] Performed By: #### 2 4362-6 #### [facility] CLIA [id number] [address] [place] [address] [place] Platelet mean volume (Bld) [Entitic vol] 10.8 fL Normal 9.0-12.7 [facility] Comment on above: Order Comment: Speci men Type: BLOOD SPECIMEN Ordering Facility: [facility] Address: [address] [place] [address] Performed By: #### 2 4362-6 #### [facility] CLIA [id number] [address] [place] [address] [place] Platelets (Bld) [#/Vol] 315 10*3/uL Normal 150-400 [facility] Comment on above: Order Comment: Speci men Type: BLOOD SPECIMEN Ordering Facility: [facility] Address: [address] [place] [address] Performed By: #### 2 4362-6 #### [facility] CLIA [id number] [address] [place] [address] [place] RBC (Bld) [#/Vol] 3.37 10*6/uL Low 3.90-5.20 [facility] Comment on above: Order Comment: Speci men Type: BLOOD SPECIMEN Ordering Facility: [facility] Address: [address] [place] [address] Performed By: #### 2 4362-6 #### [facility] CLIA [id number] [address] [place] [address] [place] WBC (Bld) [#/Vol] 4.96 10*3/uL Normal 3.70-11.00 [facility] Comment on above: Order Comment: Speci men Type: BLOOD SPECIMEN Ordering Facility: [facility] Address: [address] [place] [address] Performed By: #### 2 4362-6 #### [facility] CLIA [id number] [address] [place] [address] [place] Basic metabolic 2000 panelon 06-21-2024 Anion gap [Moles/Vol] 12 mmol/L 8 - 15 mmol/L [facility] Calcium [Mass/Vol] 9.3 mg/dL 8.5 - 10. 2 mg/dL [facility] Chloride [Moles/Vol] 108 mmol/L High 98 - 10 7 mmol/L [facility] CO2 [Moles/Vol] 21 mmol/L Low 22 - 30 mmol/L [facility] Creatinine [Mass/Vol] 0.92 mg/dL 0.58 - 0.96 mg/dL [facility] GFR/1.73 sq M.predicted among non-blacks MDRD (S/P/Bld) [Vol rate/Area] 62 mL/min/{1.73_m2} - PINF [facility] Comment on above: Estimated Glomerular Filtration Rate [...] High 74 - 99 mg/dL [facility] Comment on above: The [place] Diab[employer] Association (ADA) provides guidance for [...] Standards of Medical Care in Diabetes 2016, [place] [employer]. Diabetes Care. 2016.39(Suppl 1). Interpretation and review of laboratory results Abnormal [facility] Potassium [Moles/Vol] 4.6 mmol/L 3.7 - 5.1 mmol/L [facility] Sodium [Moles/Vol] 141 mmol/L 136 - 144 mmol/L [facility] Urea nitrogen [Mass/Vol] 22 mg/dL High 7 - 21 mg/dL [facility] Anion gap [Moles/Vol] 12 mmol/L Normal 8-15 [facility] Comment on above: Order Comment: Speci men Type: BLOOD SPECIMEN Ordering Facility: [facility] Address: [address] [place], [place] [address] Performed By: #### 2 4362-6 #### [facility] CLIA [id number] [address] [place] [address] [place] Calcium [Mass/Vol] 9.3 mg/dL Normal 8.5-10.2 [facility] Comment on above: Order Comment: Speci men Type: BLOOD SPECIMEN Ordering Facility: [facility] Address: [address] [place] [address] Performed By: #### 2 4362-6 #### [facility] CLIA [id number] [address] [place] [address] [place] Chloride [Moles/Vol] 108 mmol/L High 98-107 [facility] Comment on above: Order Comment: Speci men Type: BLOOD SPECIMEN Ordering Facility: [facility] Address: [address] [place], [place] [address] Performed By: #### 2 4362-6 #### [facility] CLIA [id number] [address] [place] [address] [place] CO2 [Moles/Vol] 21 mmol/L Low 22-30 [facility] Comment on above: Order Comment: Speci men Type: BLOOD SPECIMEN Ordering Facility: [facility] Address: [address] [place], [place] [address] Performed By: #### 2 4362-6 #### [facility] CLIA [id number] [address] [place], [place] [address] [place] Creatinine [Mass/Vol] 0.92 mg/dL Normal 0.58-0.96 [facility] Comment on above: Order Comment: Rhina mason Type: BLOOD SPECIMEN Ordering Facility: [facility] Address: [address] [place] [address] Performed By: #### 2 4362-6 #### [facility] CLIA [id number] [address] [place] [address] [place] Creatinine and Glomerular filtration rate.predicted panel (S/P/Bld) 62 mL/min/1.73m??? Normal >=60 [facility] Comment on above: Order Comment: Rhina mason Type: BLOOD SPECIMEN Ordering Facility: [facility] Address: [address] [place] [address] Result Comment: Isa mated Glomerular Filtration Rate [...] GFR. Performed By: #### 2 4362-6 #### [facility] CLIA [id number] [address] [place] [address] [place] Glucose [Mass/Vol] 101 mg/dL High 74-99 [facility] Comment on above: Order Comment: Rhina mason Type: BLOOD SPECIMEN Ordering Facility: [facility] Address: [address] [place] [address] Result Comment: The [place] Diabetes Association (ADA) provides guidance for cutoff [...] Standards of Medical Care in Diabetes 2016, [place] Diabetes Association. Diabetes Care. 2016.39(Suppl 1). Performed By: #### 2 4362-6 #### [facility] CLIA [id number] [address] [place] [address] [place] Potassium [Moles/Vol] 4.6 mmol/L Normal 3.7-5.1 [facility] Comment on above: Order Comment: Speci men Type: BLOOD SPECIMEN Ordering Facility: [facility] Address: [address] [place] [address] Performed By: #### 2 4362-6 #### [facility] CLIA [id number] [address] [place] [address] [place] Sodium [Moles/Vol] 141 mmol/L Normal 136-144 [facility] Comment on above: Order Comment: Speci men Type: BLOOD SPECIMEN Ordering Facility: [facility] Address: [address] [place] [address] Performed By: #### 2 4362-6 #### [facility] CLIA [id number] [address] [place] [address] [place] Urea nitrogen [Mass/Vol] 22 mg/dL High 7-21 [facility] Comment on above: Order Comment: Speci men Type: BLOOD SPECIMEN Ordering Facility: [facility] Address: [address] [place] [address] Performed By: #### 2 4362-6 #### [facility] CLIA [id number] [address] [place] [address] [place] CBC panel Auto (Bld)on 06-21 Erythrocyte distribution width (RBC) [Ratio] 15.8 % High 11.5 - 15.0 % [facility] Hematocrit (Bld) [Volume fraction] 34.2 % Low 36.0 - 46.0 % [facility] Hemoglobin (Bld) [Mass/Vol] 10.6 g/dL Low 11.5 - 15.5 g/dL [facility] Interpretation and review of laboratory results Abnormal [facility] MCH (RBC) [Entitic mass] 26.4 pg 26.0 - 34.0 pg [facility] MCHC (RBC) [Mass/Vol] 31.0 g/dL 30.5 - 36.0 g/dL [facility] MCV (RBC) [Entitic vol] 85.3 fL 80.0 - 100.0 fL [facility] Nucleated RBC (Bld) [#/Vol] NINF [facility] Platelet mean volume (Bld) [Entitic vol] 10.7 fL 9.0 - 12.7 fL [facility] Platelets (Bld) [#/Vol] 300 10*3/uL [facility] RBC (Bld) [#/Vol] 4.01 10*6/uL 3.90 - 5.2 0 m/uL [facility] WBC (Bld) [#/Vol] 5.52 10*3/uL [facility] Erythrocyte distribution width (RBC) [Ratio] 15.8 % High 11.5-15.0 [facility] Comment on above: Order Comment: Speci men Type: BLOOD SPECIMEN Ordering Facility: [facility] Address: [address] [place] [address] Performed By: #### 2 4362-6 #### [facility] CLIA [id number] [address] [place] [address] [place] Hematocrit (Bld) [Volume fraction] 34.2 % Low 36.0-46.0 [facility] Comment on above: Order Comment: Speci men Type: BLOOD SPECIMEN Ordering Facility: [facility] Address: [address] [place] [address] Performed By: #### 2 4362-6 #### [facility] CLIA [id number] [address] [place] [address] [place] Hemoglobin (Bld) [Mass/Vol] 10.6 g/dL Low 11.5-15.5 [facility] Comment on above: Order Comment: Speci men Type: BLOOD SPECIMEN Ordering Facility: [facility] Address: [address] [place] [address] Performed By: #### 2 4362-6 #### [facility] CLIA [id number] [address] [place] [address] [place] MCH (RBC) [Entitic mass] 26.4 pg Normal 26.0-34.0 [facility] Comment on above: Order Comment: Speci men Type: BLOOD SPECIMEN Ordering Facility: [facility] Address: [address] [place] [address] Performed By: #### 2 4362-6 #### [facility] CLIA [id number] [address] [place] [address] [place] MCHC (RBC) [Mass/Vol] 31.0 g/dL Normal 30.5-36.0 [facility] Comment on above: Order Comment: Speci men Type: BLOOD SPECIMEN Ordering Facility: [facility] Address: [address] [place] [address] Performed By: #### 2 4362-6 #### [facility] CLIA [id number] [address] [place] [address] [place] MCV (RBC) [Entitic vol] 85.3 fL Normal 80.0-100.0 [facility] Comment on above: Order Comment: Speci men Type: BLOOD SPECIMEN Ordering Facility: [facility] Address: [address] [place] [address] Performed By: #### 2 4362-6 #### [facility] CLIA [id number] [address] [place] [address] [place] Nucleated RBC (Bld) [#/Vol] 10*3/uL Normal <0.01 [facility] Comment on above: Order Comment: Speci men Type: BLOOD SPECIMEN Ordering Facility: [facility] Address: [address] [place] [address] Performed By: #### 2 4362-6 #### [facility] CLIA [id number] [address] [place] [address] [place] Platelet mean volume (Bld) [Entitic vol] 10.7 fL Normal 9.0-12.7 [facility] Comment on above: Order Comment: Speci men Type: BLOOD SPECIMEN Ordering Facility: [facility] Address: [address] [place] [address] Performed By: #### 2 4362-6 #### [facility] CLIA [id number] [address] [place] [address] [place] Platelets (Bld) [#/Vol] 300 10*3/uL Normal 150-400 [facility] Comment on above: Order Comment: Speci men Type: BLOOD SPECIMEN Ordering Facility: [facility] Address: [address] [place] [address] Performed By: #### 2 4362-6 #### [facility] CLIA [id number] [address] [place] [address] [place] RBC (Bld) [#/Vol] 4.01 10*6/uL Normal 3.90-5.20 [facility] Comment on above: Order Comment: Speci men Type: BLOOD SPECIMEN Ordering Facility: [facility] Address: [address] [place] [address] Performed By: #### 2 4362-6 #### [facility] CLIA [id number] [address] [place] [address] [place] WBC (Bld) [#/Vol] 5.52 10*3/uL Normal 3.70-11.00 [facility] Comment on above: Order Comment: Speci men Type: BLOOD SPECIMEN Ordering Facility: [facility] Address: [address] [place] [address] Performed By: #### 2 4362-6 #### [facility] CLIA [id number] [address] [place] [address] [place] Basic metabolic 2000 panelon 06-19-2024 Anion gap [Moles/Vol] 10 mmol/L Normal 8-15 [facility] Comment on above: Order Comment: Speci men Type: BLOOD SPECIMEN Ordering Facility: [facility] Address: [address] [place] [address] Performed By: #### 2 4321-2, 05618-8, #### [facility] CLIA [id number] [address] [place] [address] [place] Calcium [Mass/Vol] 8.9 mg/dL Normal 8.5-10.2 [facility] Comment on above: Order Comment: Speci men Type: BLOOD SPECIMEN Ordering Facility: [facility] Address: [address] [place] [address] Performed By: #### 2 4321-2, 04587-3, #### [facility] CLIA [id number] [address] [place] [address] [place] Chloride [Moles/Vol] 109 mmol/L High 98-107 [facility] Comment on above: Order Comment: Speci men Type: BLOOD SPECIMEN Ordering Facility: [facility] Address: [address] [place] [address] Performed By: #### 2 1-2, 07681-2, #### [facility] CLIA [id number] [address] [place] [address] [place] CO2 [Moles/Vol] 21 mmol/L Low 22-30 [facility] Comment on above: Order Comment: Speci men Type: BLOOD SPECIMEN Ordering Facility: [facility] Address: [address] [place] [address] Performed By: #### 2 4321-2, 81734-1, #### [facility] CLIA [id number] [address] [place] [address] [place] Creatinine [Mass/Vol] 1.04 mg/dL High 0.58-0.96 [facility] Comment on above: Order Comment: Speci men Type: BLOOD SPECIMEN Ordering Facility: [facility] Address: [address] [place] [address] Performed By: #### 2 4321-2, 15179-9, #### [facility] CLIA [id number] [address] [place] [address] [place] Creatinine and Glomerular filtration rate.predicted panel (S/P/Bld) 53 mL/min/1.73m??? Low >=60 [facility] Comment on above: Order Comment: Rhina mason Type: BLOOD SPECIMEN Ordering Facility: [facility] Address: [address] [place] [address] Result Comment: Isa mated Glomerular Filtration Rate [...] actual GFR. Performed By: #### 2 4321-2, 42620-7, #### [facility] CLIA [id number] [address] [place] [address] [place] Glucose [Mass/Vol] 103 mg/dL High 74-99 [facility] Comment on above: Order Comment: Rhina mason Type: BLOOD SPECIMEN Ordering Facility: [facility] Address: [address] [place] [address] Result Comment: The [place] Diabetes Association (ADA) provides guidance for cutoff [...] Standards of Medical Care in Diabetes 2016, [place] Diabetes Association. Diabetes Care. 2016.39(Suppl 1). Performed By: #### 2 4321-2, 91246-0, #### [facility] CLIA [id number] [address] [place] [address] [place] Potassium [Moles/Vol] 4.8 mmol/L Normal 3.7-5.1 [facility] Comment on above: Order Comment: Speci men Type: BLOOD SPECIMEN Ordering Facility: [facility] Address: [address] [place] [address] Performed By: #### 2 4321-2, 35182-8, #### [facility] CLIA [id number] [address] [place] Sodium [Moles/Vol] 140 mmol/L Normal 136-144 [facility] Comment on above: Order Comment: Speci men Type: BLOOD SPECIMEN Ordering Facility: [facility] Address: [address] [place] [address] Performed By: #### 2 4321-2, 33824-6, #### [facility] CLIA [id number] [address] [facility] Urea nitrogen [Mass/Vol] 25 mg/dL High 7-21 [facility] Comment on above: Order Comment: Speci men Type: BLOOD SPECIMEN Ordering Facility: [facility] Address: [address] [place] [address] Performed By: #### 2 4321-2, 71619-4, #### [facility] CLIA [id number] [address] [place] CBC panel Auto (Bld)on 06-19 Erythrocyte distribution width (RBC) [Ratio] 15.9 % High 11.5-15.0 [facility] Comment on above: Order Comment: Speci men Type: BLOOD SPECIMEN Ordering Facility: [facility] Address: [address] [place] [address] Performed By: #### 2 4321-2, 64432-6, #### [facility] CLIA [id number] [address] [place] Hematocrit (Bld) [Volume fraction] 30.6 % Low 36.0-46.0 [facility] Comment on above: Order Comment: Speci men Type: BLOOD SPECIMEN Ordering Facility: [facility] Address: [address] [place] [address] Performed By: #### 2 4321-2, 30028-6, #### [facility] CLIA [id number] [address] Hemoglobin (Bld) [Mass/Vol] 9.5 g/dL Low 11.5-15.5 [facility] Comment on above: Order Comment: Speci men Type: BLOOD SPECIMEN Ordering Facility: [facility] Address: [address] [place] [address] Performed By: #### 2 4321-2, 71578-7, #### [facility] CLIA [id number] [address] [facility] MCH (RBC) [Entitic mass] 26.5 pg Normal 26.0-34.0 [facility] Comment on above: Order Comment: Speci men Type: BLOOD SPECIMEN Ordering Facility: [facility] Address: [address] [place] [address] Performed By: #### 2 4321-2, 96321-5, #### [facility] CLIA [id number] [address] [facility] MCHC (RBC) [Mass/Vol] 31.0 g/dL Normal 30.5-36.0 [facility] Comment on above: Order Comment: Speci men Type: BLOOD SPECIMEN Ordering Facility: [facility] Address: [address] [place] [address] Performed By: #### 2 4321-2, 21870-2, #### [facility] CLIA [id number] [address] MCV (RBC) [Entitic vol] 85.5 fL Normal 80.0-100.0 [facility] Comment on above: Order Comment: Speci men Type: BLOOD SPECIMEN Ordering Facility: [facility] Address: [address] [place] [address] Performed By: #### 2 4321-2, 39633-8, #### [facility] CLIA [id number] [address] [place] [address] [place] Nucleated RBC (Bld) [#/Vol] 10*3/uL Normal <0.01 [facility] Comment on above: Order Comment: Speci men Type: BLOOD SPECIMEN Ordering Facility: [facility] Address: [address] [place] [address] Performed By: #### 2 4321-2, 00745-3, #### [facility] CLIA [id number] [address] [place] [address] [place] Platelet mean volume (Bld) [Entitic vol] 10.4 fL Normal 9.0-12.7 [facility] Comment on above: Order Comment: Speci men Type: BLOOD SPECIMEN Ordering Facility: [facility] Address: [address] [place] [address] Performed By: #### 2 4321-2, 66609-7, #### [facility] CLIA [id number] [address] [place] Platelets (Bld) [#/Vol] 245 10*3/uL Normal 150-400 [facility] Comment on above: Order Comment: Speci men Type: BLOOD SPECIMEN Ordering Facility: [facility] Address: [address] [place] [address] Performed By: #### 2 4321-2, 24172-2, #### [facility] CLIA [id number] [address] [place] [address] [place] RBC (Bld) [#/Vol] 3.58 10*6/uL Low 3.90-5.20 [facility] Comment on above: Order Comment: Speci men Type: BLOOD SPECIMEN Ordering Facility: [facility] Address: [address] [place] [address] Performed By: #### 2 4321-2, 17444-4, #### [facility] CLIA [id number] [address] [place] [address] [place] WBC (Bld) [#/Vol] 4.67 10*3/uL Normal 3.70-11.00 [facility] Comment on above: Order Comment: Speci men Type: BLOOD SPECIMEN Ordering Facility: [facility] Address: [address] [place] [place] [id number] Performed By: #### 2 4321-2, 22183-7, 12557-0 #### [facility] CLIA [id number] [address] [place] CNDSon 06-19-2024 CNDS HNO ID: [id number] Author: DON EDWARDS DO Service: Hospital Medicine [...] eliquis. She was seen by therapy and long term facility was recommended. He slowly was improving. She was discharged to long term facility in stable condition. OTHER PROBLEMS/DIAGNOSIS: Principal [...] call for appointment?: Yes Jared Evans MD [phone] [address] [facility] [address] PCP Requested Referral Follow-Up Appointment When: In 2 weeks Patient/Parents to call for appointment?: Yes Hermila Padilla MD [phone] [place] [address] PCP Requested Referral Follow-Up Appointment For hydronephrosis and renal lesion When: In 2 weeks Patient/Parents to call for appointment?: Yes Mikhail Vuong Jr., MD [phone] [address] [facility] [place] [address] PCP Requested Referral Follow-Up Appointment With: neurology When: In 4 weeks Patient/Parents to call for appointment?: Yes Additional Provider to Provider Information: Treatment Team: Attending Provider: Don Edwards DO Consulting: Pratibha Logan MD Consulting: Torsten Otoole MD Primary Service: BLAS ALVAREZ [facility] Critical Issues: SPECIALIST FOLLOW-UP: urology, cardiology, neurology LABS AND PROCEDURES PENDING AT DISCHARGE: No pending results. FOLLOW-UP APPOINTMENTS ALREADY SCHEDULED WITH A [facility] PROVIDER: No future appointments. Discharge Information Row Name ED to Hosp-Admission (Current) from 06/10/2024 in [place] 80 NEURO/CARD Rehab Facility Agency [facility] ALLERGIES Allergen Reactions Percocet [Oxycodone* Itching DISCHARGE MEDICA (more content not included)... Normal [facility] Basic metabolic 2000 panelon 06-18-2024 Anion gap [Moles/Vol] 10 mmol/L Normal 8-15 [facility] Comment on above: Order Comment: Speci men Type: BLOOD SPECIMEN Ordering Facility: [facility] Address: [address] [place] [address] Performed By: #### 2 4321-2, 84286-3, #### [facility] CLIA [id number] [address] [place] [address] [place] Calcium [Mass/Vol] 8.9 mg/dL Normal 8.5-10.2 [facility] Comment on above: Order Comment: Speci men Type: BLOOD SPECIMEN Ordering Facility: [facility] Address: [address] [place] [address] Performed By: #### 2 4321-2, 14285-8, #### [facility] CLIA [id number] [address] [place] [address] [place] Chloride [Moles/Vol] 110 mmol/L High 98-107 [facility] Comment on above: Order Comment: Speci men Type: BLOOD SPECIMEN Ordering Facility: [facility] Address: [address] [place] [address] Performed By: #### 2 4321-2, 26358-1, #### [facility] CLIA [id number] [address] [place] CO2 [Moles/Vol] 21 mmol/L Low 22-30 [facility] Comment on above: Order Comment: Rhina mason Type: BLOOD SPECIMEN Ordering Facility: [facility] Address: [address] [place] [address] Performed By: #### 2 4321-2, 70403-1, #### [facility] CLIA [id number] [address] [place] Creatinine [Mass/Vol] 0.96 mg/dL Normal 0.58-0.96 [facility] Comment on above: Order Comment: Rhina mason Type: BLOOD SPECIMEN Ordering Facility: [facility] Address: [address] [place] [address] Performed By: #### 2 4321-2, 76060-1, #### [facility] CLIA [id number] [address] Creatinine and Glomerular filtration rate.predicted panel (S/P/Bld) 58 mL/min/1.73m??? Low >=60 [facility] Comment on above: Order Comment: Rhina mason Type: BLOOD SPECIMEN Ordering Facility: [facility] Address: [address] [place] [address] Result Comment: Isa mated Glomerular Filtration Rate [...] actual GFR. Performed By: #### 2 4321-2, 20593-7, #### [facility] CLIA [id number] [address] [place] Glucose [Mass/Vol] 112 mg/dL High 74-99 [facility] Comment on above: Order Comment: Rhina mason Type: BLOOD SPECIMEN Ordering Facility: [facility] Address: [address] [place] [address] Result Comment: The [place] [employer] (ADA) provides guidance for cutoff [...] Standards of Medical Care in Diabetes 2016, [place] [employer]. Diabetes Care. 2016.39(Suppl 1). Performed By: #### 2 4321-2, 27319-7, #### [facility] CLIA [id number] [address] [place] [address] [place] Potassium [Moles/Vol] 4.4 mmol/L Normal 3.7-5.1 [facility] Comment on above: Order Comment: Speci men Type: BLOOD SPECIMEN Ordering Facility: [facility] Address: [address] [place] [id number] Performed By: #### 2 4321-2, 15957-0, #### [facility] CLIA [id number] [address] [place] [address] [place] Sodium [Moles/Vol] 141 mmol/L Normal 136-144 [facility] Comment on above: Order Comment: Speci men Type: BLOOD SPECIMEN Ordering Facility: [facility] Address: [address] [place] [address] Performed By: #### 2 4321-2, 28221-3, #### [facility] CLIA [id number] [address] [place] [address] [place] Urea nitrogen [Mass/Vol] 22 mg/dL High 7-21 [facility] Comment on above: Order Comment: Speci men Type: BLOOD SPECIMEN Ordering Facility: [facility] Address: [address] [place] [address] Performed By: #### 2 4321-2, 27077-3, 27781-1 #### [facility] CLIA [id number] [address] CBC panel Auto (Bld)on 06-18 Erythrocyte distribution width (RBC) [Ratio] 15.9 % High 11.5-15.0 [facility] Comment on above: Order Comment: Speci men Type: BLOOD SPECIMENOrdering Facility: [facility] Address: [address] [place] [address] Performed By: #### 5 8410-2 ####[facility]IA [id number] [address] Hematocrit (Bld) [Volume fraction] 34.3 % Low 36.0-46.0 [facility] Comment on above: Order Comment: Speci men Type: BLOOD SPECIMENOrdering Facility: [facility] Address: [address] [place] [address] Performed By: #### 5 8410-2 ####[facility]IA [id number] [address] Hemoglobin (Bld) [Mass/Vol] 10.7 g/dL Low 11.5-15.5 [facility] Comment on above: Order Comment: Speci men Type: BLOOD SPECIMENOrdering Facility: [facility] Address: [address] [place] [address] Performed By: #### 5 8410-2 ####[facility]IA [id number] [address] MCH (RBC) [Entitic mass] 26.7 pg Normal 26.0-34.0 [facility] Comment on above: Order Comment: Speci men Type: BLOOD SPECIMENOrdering Facility: [facility] Address: [address] [place] [address] Performed By: #### 5 8410-2 ####[facility]CLIA [id number] [address] STATES [facility] MCHC (RBC) [Mass/Vol] 31.2 g/dL Normal 30.5-36.0 [facility] Comment on above: Order Comment: Speci men Type: BLOOD SPECIMENOrdering Facility: [facility] Address: [address] [place] [address] Performed By: #### 5 8410-2 ####[facility]IA [id number] [address] [place] MCV (RBC) [Entitic vol] 85.5 fL Normal 80.0-100.0 [facility] Comment on above: Order Comment: Speci men Type: BLOOD SPECIMENOrdering Facility: [facility] Address: [address] [place] [address] Performed By: #### 5 8410-2 ####[facility]ORYCLIA [id number] [address] [place] Nucleated RBC (Bld) [#/Vol] 10*3/uL Normal <0.01 [facility] Comment on above: Order Comment: Speci men Type: BLOOD SPECIMENOrdering Facility: [facility] Address: [address] [place] [address] Performed By: #### 5 8410-2 ####[facility]ORYCLIA [id number] [address] [place] Platelet mean volume (Bld) [Entitic vol] 10.0 fL Normal 9.0-12.7 [facility] Comment on above: Order Comment: Speci men Type: BLOOD SPECIMENOrdering Facility: [facility] Address: [address] [place] [address] Performed By: #### 5 8410-2 ####[facility]ORYCLIA [id number] [place] [address] [place] Platelets (Bld) [#/Vol] 273 10*3/uL Normal 150-400 [facility] Comment on above: Order Comment: Speci men Type: BLOOD SPECIMENOrdering Facility: [facility] Address: [address] [place] [address] Performed By: #### 5 8410-2 ####[facility]ORYCLIA [id number] [address] STATES OF [facility] RBC (Bld) [#/Vol] 4.01 10*6/uL Normal 3.90-5.20 [facility] Comment on above: Order Comment: Speci men Type: BLOOD SPECIMENOrdering Facility: [facility] Address: [address] [place] [address] Performed By: #### 5 8410-2 ####[facility]ORYCLIA [id number] [address] WBC (Bld) [#/Vol] 5.29 10*3/uL Normal 3.70-11.00 [facility] Comment on above: Order Comment: Speci men Type: BLOOD SPECIMENOrdering Facility: [facility] Address: [address] [place] [address] Performed By: #### 5 8410-2 ####[facility]ORYCLIA [id number] [address] Hepatic function 2000 panelo n 06-18-2024 Albumin [Mass/Vol] 3.5 g/dL Low 3.9-4.9 [facility] Comment on above: Order Comment: Speci men Type: BLOOD SPECIMEN Ordering Facility: [facility] Address: [address] [place] [address] Performed By: #### 2 4321-2, 21875-7, #### [facility] CLIA [id number] [address] ALP [Catalytic activity/Vol] 80 U/L Normal 34-123 [facility] Comment on above: Order Comment: Speci men Type: BLOOD SPECIMEN Ordering Facility: [facility] Address: [address] [place] [address] Performed By: #### 2 4321-2, 61010-1, #### [facility] CLIA [id number] [address] ALT With P-5'-P [Catalytic activity/Vol] 16 U/L Normal 7-38 [facility] Comment on above: Order Comment: Speci men Type: BLOOD SPECIMEN Ordering Facility: [facility] Address: [address] [place] [address] Performed By: #### 2 4321-2, 35457-6, #### [facility] CLIA [id number] [address] [facility] AST With P-5'-P [Catalytic activity/Vol] 20 U/L Normal 13-35 [facility] Comment on above: Order Comment: Speci men Type: BLOOD SPECIMEN Ordering Facility: [facility] Address: [address] [place] [address] Performed By: #### 2 4321-2, 41425-0, #### [facility] CLIA [id number] [address] [place] Bilirubin [Mass/Vol] 0.3 mg/dL Normal 0.2-1.3 [facility] Comment on above: Order Comment: Speci men Type: BLOOD SPECIMEN Ordering Facility: [facility] Address: [address] [place] [address] Performed By: #### 2 1-2, 40090-9, #### [facility] CLIA [id number] [address] Bilirubin.conjugated [Mass/Vol] mg/dL Normal <0.2 [facility] Comment on above: Order Comment: Speci men Type: BLOOD SPECIMEN Ordering Facility: [facility] Address: [address] [place] [address] Performed By: #### 2 4321-2, 63759-6, #### [facility] CLIA [id number] [address] [place] Protein [Mass/Vol] 6.0 g/dL Low 6.3-8.0 [facility] Comment on above: Order Comment: Speci men Type: BLOOD SPECIMEN Ordering Facility: [facility] Address: [address] [place] [address] Performed By: #### 2 4321-2, 42902-9, #### [facility] CLIA [id number] [address] [place] [address] [facility] Magnesium SerPl-mCncon 06-18 Magnesium [Mass/Vol] 1.9 mg/dL Normal 1.7-2.3 [facility] Comment on above: Order Comment: Speci men Type: BLOOD SPECIMEN Ordering Facility: [facility] Address: [facility] [place] [address] Performed By: #### 2 4321-2, 20673-6, #### [facility] CLIA [id number] [address] [place] [id number] [facility] NUTRITIONon 06-18-2024 NUTRITION HNO ID: [id number] Author: NELSON AVILA RD Service: Nutrition Therapy [...] Obtained From: Patient 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; 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) MNT Billing: $ Initial Assessment: 1-15 minutes SIGNATURE: Nelson Avila RD PATIENT NAME: Mel Castillo DATE: June 18, 2024 TIME: 11:18 AM Normal [facility] THERAPY NTon 06-18-2024 THERAPY NT HNO ID: [id number] Author: SELENA BARR, PT Service: Physical Therapy Author Type: Physical Therapist Type: Therapy (PT/OT/Speech/Resp) Filed: 06/18/2024 12:53 Note Text: Physical Therapy Treatment Summary SERVICE DATE: 06/18/2024 SERVICE TIME: 1056 to 1129 ROOM: [place] [address] PT 6 Clicks Score: 16 DISCHARGE RECOMMENDATIONS [...] Lack of coordination-other TREATMENT INTERVENTIONS Therapeutic Activity (91016) Therapeutic Activity (15852) Treatment Minutes: 25 $ Therapeutic Activity (56279) Billed Units: 2 units Timed Code Treatment [...] Balance, Non-func (more content not included)... Normal [facility] THERAPY NT HNO ID: [id number] Author: NAKIA JEFFERSON, ROSHANR/L Service: Occupational Therapy Author Type: Occupational Therapist Type: Therapy (PT/OT/Speech/Resp) Filed: 06/18/2024 13:34 Note Text: Occupational Therapy Treatment Summary SERVICE DATE: 06/18/2024 SERVICE TIME: 1130 to 1154 ROOM: [place] [address] OT 6 Clicks Score: 15 DISCHARGE RECOMMENDATIONS [...] and signs-other TREATMENT INTERVENTIONS Self Longterm Management (64460), Cognitive Training (00095 and 10481) Timed Code Treatment (minutes): 24 Skilled Treatment Time (minutes): 24 Self Longterm Management (89393) Treatment Minutes: 11 $ Self Longterm Management (80220) Billed Units: 1 unit Minimal assist with meal set-up. Cueing for physical assist with maintaining functional grasp on packaging to tear open. Pt demonstrated impaired hand-eye coordination/visual spatial awareness with bringing food to mouth. Provided further cueing and tactile awareness/sequencing to maximize ease with self feeding. Cognitive Training First 15 Minutes (73805) : 13 $ Cognitive Training First 15 Minutes (55491) Billed Units: 1 unit Facilitated completion of [facility] Mental Examination (UMS) to screen performance with [...] Occupational Therapy, Safety/Judgment, Sitting Balance to Improve [place] with ADLs/Self-Care, Cognitive Skills, Command Following, Expected Functional Level, Feeding Tasks, Low Vision Strategies, Positioning, Visual Scanning/Attention Activities THERAPEUTIC SKILLS USED Activity Dosing, Cues for (more content not included)... Normal [facility] CBC panel Auto (Bld)on 06-17 Erythrocyte distribution width (RBC) [Ratio] 15.7 % High 11.5-15.0 [facility] Comment on above: Order Comment: Speci men Type: BLOOD SPECIMEN Ordering Facility: [facility] Address: [address] [place] [address] Performed By: #### 2 4321-2, 48546-7, #### [facility] CLIA [id number] [address] Hematocrit (Bld) [Volume fraction] 35.1 % Low 36.0-46.0 [facility] Comment on above: Order Comment: Speci men Type: BLOOD SPECIMEN Ordering Facility: [facility] Address: [address] [place] [address] Performed By: #### 2 4321-2, 98351-0, #### [facility] CLIA [id number] [address] [facility] Hemoglobin (Bld) [Mass/Vol] 11.0 g/dL Low 11.5-15.5 [facility] Comment on above: Order Comment: Speci men Type: BLOOD SPECIMEN Ordering Facility: [facility] Address: [address] [place] [address] Performed By: #### 2 4321-2, 91543-2, #### [facility] CLIA [id number] [address] STATES [facility] MCH (RBC) [Entitic mass] 26.4 pg Normal 26.0-34.0 [facility] Comment on above: Order Comment: Speci men Type: BLOOD SPECIMEN Ordering Facility: [facility] Address: [address] [place] [address] Performed By: #### 2 4321-2, 59538-2, #### [facility] CLIA [id number] [address] MCHC (RBC) [Mass/Vol] 31.3 g/dL Normal 30.5-36.0 [facility] Comment on above: Order Comment: Speci men Type: BLOOD SPECIMEN Ordering Facility: [facility] Address: [address] [place] [address] Performed By: #### 2 4321-2, 10252-6, #### [facility] CLIA [id number] [address] [facility] MCV (RBC) [Entitic vol] 84.4 fL Normal 80.0-100.0 [facility] Comment on above: Order Comment: Speci men Type: BLOOD SPECIMEN Ordering Facility: [facility] Address: [address] [place] [address] Performed By: #### 2 4321-2, 82015-3, #### [facility] CLIA [id number] [address] [place] Nucleated RBC (Bld) [#/Vol] 10*3/uL Normal <0.01 [facility] Comment on above: Order Comment: Speci men Type: BLOOD SPECIMEN Ordering Facility: [facility] Address: [address] [place] [address] Performed By: #### 2 1-2, 39035-4, #### [facility] CLIA [id number] [address] [place] Platelet mean volume (Bld) [Entitic vol] 10.1 fL Normal 9.0-12.7 [facility] Comment on above: Order Comment: Speci men Type: BLOOD SPECIMEN Ordering Facility: [facility] Address: [address] [place] [address] Performed By: #### 2 1-2, 77134-2, #### [facility] CLIA [id number] [address] [place] [address] [place] Platelets (Bld) [#/Vol] 294 10*3/uL Normal 150-400 [facility] Comment on above: Order Comment: Speci men Type: BLOOD SPECIMEN Ordering Facility: [facility] Address: [address] [place] [address] Performed By: #### 2 4321-2, 79827-0, #### [facility] CLIA [id number] [address] RBC (Bld) [#/Vol] 4.16 10*6/uL Normal 3.90-5.20 [facility] Comment on above: Order Comment: Speci men Type: BLOOD SPECIMEN Ordering Facility: [facility] Address: [address] [place] [address] Performed By: #### 2 4321-2, 63584-2, #### [facility] CLIA [id number] [address] [facility] WBC (Bld) [#/Vol] 5.63 10*3/uL Normal 3.70-11.00 [facility] Comment on above: Order Comment: Speci men Type: BLOOD SPECIMEN Ordering Facility: [facility] Address: [address] [place] [address] Performed By: #### 2 4321-2, 08113-1, #### [facility] CLIA [id number] [address] CBC panel Auto (Bld)on 06-16 Erythrocyte distribution width (RBC) [Ratio] 15.4 % High 11.5-15.0 [facility] Comment on above: Order Comment: Speci men Type: BLOOD SPECIMEN Ordering Facility: [facility] Address: [address] [place] [address] Performed By: #### 2 4321-2, 83520-5, #### [facility] CLIA [id number] [address] Hematocrit (Bld) [Volume fraction] 34.9 % Low 36.0-46.0 [facility] Comment on above: Order Comment: Speci men Type: BLOOD SPECIMEN Ordering Facility: [facility] Address: [address] [place] [address] Performed By: #### 2 4321-2, 50774-5, #### [facility] CLIA [id number] [address] [facility] Hemoglobin (Bld) [Mass/Vol] 10.9 g/dL Low 11.5-15.5 [facility] Comment on above: Order Comment: Speci men Type: BLOOD SPECIMEN Ordering Facility: [facility] Address: [address] [place] [address] Performed By: #### 2 4321-2, 09950-4, #### [facility] CLIA [id number] [address] [facility] MCH (RBC) [Entitic mass] 26.4 pg Normal 26.0-34.0 [facility] Comment on above: Order Comment: Speci men Type: BLOOD SPECIMEN Ordering Facility: [facility] Address: [address] [place] [address] Performed By: #### 2 4320-2, 81611-0, #### [facility] CLIA [id number] [address] MCHC (RBC) [Mass/Vol] 31.2 g/dL Normal 30.5-36.0 [facility] Comment on above: Order Comment: Speci men Type: BLOOD SPECIMEN Ordering Facility: [facility] Address: [address] [place] [address] Performed By: #### 2 4321-2, 01335-3, #### [facility] CLIA [id number] [address] [facility] MCV (RBC) [Entitic vol] 84.5 fL Normal 80.0-100.0 [facility] Comment on above: Order Comment: Speci men Type: BLOOD SPECIMEN Ordering Facility: [facility] Address: [address] [place] [address] Performed By: #### 2 4321-2, 80332-2, #### [facility] CLIA [id number] [address] [place] [address] [place] Nucleated RBC (Bld) [#/Vol] 10*3/uL Normal <0.01 [facility] Comment on above: Order Comment: Speci men Type: BLOOD SPECIMEN Ordering Facility: [facility] Address: [address] [place] [address] Performed By: #### 2 4321-2, 36942-5, #### [facility] CLIA [id number] [address] [place] Platelet mean volume (Bld) [Entitic vol] 9.8 fL Normal 9.0-12.7 [facility] Comment on above: Order Comment: Speci men Type: BLOOD SPECIMEN Ordering Facility: [facility] Address: [address] [place] [address] Performed By: #### 2 4321-2, 14535-8, #### [facility] CLIA [id number] [address] [place] Platelets (Bld) [#/Vol] 274 10*3/uL Normal 150-400 [facility] Comment on above: Order Comment: Speci men Type: BLOOD SPECIMEN Ordering Facility: [facility] Address: [address] [place] [address] Performed By: #### 2 4321-2, 86865-7, #### [facility] CLIA [id number] [address] [place] RBC (Bld) [#/Vol] 4.13 10*6/uL Normal 3.90-5.20 [facility] Comment on above: Order Comment: Speci men Type: BLOOD SPECIMEN Ordering Facility: [facility] Address: [address] [place] [address] Performed By: #### 2 4321-2, 48113-1, #### [facility] CLIA [id number] [address] [place] WBC (Bld) [#/Vol] 6.06 10*3/uL Normal 3.70-11.00 [facility] Comment on above: Order Comment: Speci men Type: BLOOD SPECIMEN Ordering Facility: [facility] Address: [address] [place] [address] Performed By: #### 2 4321-2, 15168-6, #### [facility] CLIA [id number] [address] CBC panel Auto (Bld)on 06-15 Erythrocyte distribution width (RBC) [Ratio] 15.4 % High 11.5-15.0 [facility] Comment on above: Order Comment: Speci men Type: BLOOD SPECIMEN Ordering Facility: [facility] Address: [address] [place] [address] Performed By: #### 2 4321-2, 48686-9, #### [facility] CLIA [id number] [address] Hematocrit (Bld) [Volume fraction] 33.9 % Low 36.0-46.0 [facility] Comment on above: Order Comment: Speci men Type: BLOOD SPECIMEN Ordering Facility: [facility] Address: [address] [place] [address] Performed By: #### 2 4321-2, 63418-2, #### [facility] CLIA [id number] [address] [place] Hemoglobin (Bld) [Mass/Vol] 10.6 g/dL Low 11.5-15.5 [facility] Comment on above: Order Comment: Speci men Type: BLOOD SPECIMEN Ordering Facility: [facility] Address: [address] [place] [address] Performed By: #### 2 4321-2, 87836-7, #### [facility] CLIA [id number] [address] [place] MCH (RBC) [Entitic mass] 26.2 pg Normal 26.0-34.0 [facility] Comment on above: Order Comment: Speci men Type: BLOOD SPECIMEN Ordering Facility: [facility] Address: [address] [place] [address] Performed By: #### 2 1-2, 08459-7, #### [facility] CLIA [id number] [address] [facility] MCHC (RBC) [Mass/Vol] 31.3 g/dL Normal 30.5-36.0 [facility] Comment on above: Order Comment: Speci men Type: BLOOD SPECIMEN Ordering Facility: [facility] Address: [address] [place] [address] Performed By: #### 2 1-2, 05679-9, #### [facility] CLIA [id number] [address] [place] MCV (RBC) [Entitic vol] 83.9 fL Normal 80.0-100.0 [facility] Comment on above: Order Comment: Speci men Type: BLOOD SPECIMEN Ordering Facility: [facility] Address: [address] [place] [address] Performed By: #### 2 1-2, 73687-7, #### [facility] CLIA [id number] [address] Nucleated RBC (Bld) [#/Vol] 10*3/uL Normal <0.01 [facility] Comment on above: Order Comment: Speci men Type: BLOOD SPECIMEN Ordering Facility: [facility] Address: [address] [place] [address] Performed By: #### 2 1-2, 20231-0, #### [facility] CLIA [id number] [address] Platelet mean volume (Bld) [Entitic vol] 9.9 fL Normal 9.0-12.7 [facility] Comment on above: Order Comment: Speci men Type: BLOOD SPECIMEN Ordering Facility: [facility] Address: [address] [place] [address] Performed By: #### 2 4321-2, 30835-7, 39831-5 #### [facility] CLIA [id number] [address] [facility] Platelets (Bld) [#/Vol] 280 10*3/uL Normal 150-400 [facility] Comment on above: Order Comment: Speci men Type: BLOOD SPECIMEN Ordering Facility: [facility] Address: [address] [place] [address] Performed By: #### 2 4321-2, 98238-5, #### [facility] CLIA [id number] [address] RBC (Bld) [#/Vol] 4.04 10*6/uL Normal 3.90-5.20 [facility] Comment on above: Order Comment: Speci men Type: BLOOD SPECIMEN Ordering Facility: [facility] Address: [address] [place] [address] Performed By: #### 2 4321-2, 57628-7, #### [facility] CLIA [id number] [address] WBC (Bld) [#/Vol] 5.80 10*3/uL Normal 3.70-11.00 [facility] Comment on above: Order Comment: Speci men Type: BLOOD SPECIMEN Ordering Facility: [facility] Address: [address] [place] [address] Performed By: #### 2 4321-2, 59221-9, #### [facility] CLIA [id number] [address] [place] [id number] [facility] THERAPY NTon 06-15-2024 THERAPY NT HNO ID: [id number] Author: MEHREEN MANCERA, DAYAN Service: Physical Therapy Author Type: Physical Therapist Type: Therapy (PT/OT/Speech/Resp) Filed: 06/15/2024 16:13 Note Text: Physical Therapy Treatment Summary SERVICE DATE: 06/15/2024 SERVICE TIME: 1518 to 1547 [address]: [address] 6 Clicks Score: 13 DISCHARGE RECOMMENDATIONS [...] Lack of coordination-other TREATMENT INTERVENTIONS Therapeutic Activity (52800), Neuromuscular Reeducation (98609) Timed Code Treatment (minutes): 29 Skilled Treatment Time (minutes): 29 Therapeutic Activity (64559) Treatment Minutes: 10 $ Therapeutic Activity (51302) Billed Units: 1 unit Neuromuscular Reeducation (32083) Treatment Minutes: 19 $ Neuromuscular Reeducation (46314) Billed Units: 1 unit Sitting balance and [...] to control (more content not included)... Normal [facility] CBC panel Auto (Bld)on 06-14 Erythrocyte distribution width (RBC) [Ratio] 15.5 % High 11.5-15.0 [facility] Comment on above: Order Comment: Speci men Type: BLOOD SPECIMENOrdering Facility: [facility] Address: [address] [place] [address] Performed By: #### 5 8410-2 ####[facility] [id number] [address] Hematocrit (Bld) [Volume fraction] 34.8 % Low 36.0-46.0 [facility] Comment on above: Order Comment: Speci men Type: BLOOD SPECIMENOrdering Facility: [facility] Address: [address] [place] [address] Performed By: #### 5 8410-2 ####[facility] [id number] [address] [facility] Hemoglobin (Bld) [Mass/Vol] 11.0 g/dL Low 11.5-15.5 [facility] Comment on above: Order Comment: Speci men Type: BLOOD SPECIMENOrdering Facility: [facility] Address: [address] [place] [address] Performed By: #### 5 8410-2 ####[facility]ATORYCLIA [id number] [address] [place] [facility] MCH (RBC) [Entitic mass] 26.6 pg Normal 26.0-34.0 [facility] Comment on above: Order Comment: Speci men Type: BLOOD SPECIMENOrdering Facility: [facility] Address: [address] [place] [address] Performed By: #### 5 8410-2 ####[facility] LAB[facility]ATORYCLIA [id number] [address] [place] MCHC (RBC) [Mass/Vol] 31.6 g/dL Normal 30.5-36.0 [facility] Comment on above: Order Comment: Speci men Type: BLOOD SPECIMENOrdering Facility: [facility] Address: [address] [place] [address] Performed By: #### 5 8410-2 ####[facility] LABORATORYCLIA [id number] [address] MCV (RBC) [Entitic vol] 84.3 fL Normal 80.0-100.0 [facility] Comment on above: Order Comment: Speci men Type: BLOOD SPECIMENOrdering Facility: [facility] Address: [address] [place] [address] Performed By: #### 5 8410-2 ####[facility] LABORATORYCLIA [id number] [address] [place] Nucleated RBC (Bld) [#/Vol] 10*3/uL Normal <0.01 [facility] Comment on above: Order Comment: Speci men Type: BLOOD SPECIMENOrdering Facility: [facility] Address: [address] [place] [address] Performed By: #### 5 8410-2 ####[facility] LABORATORYCLIA [id number] [address] [place] Platelet mean volume (Bld) [Entitic vol] 9.7 fL Normal 9.0-12.7 [facility] Comment on above: Order Comment: Speci men Type: BLOOD SPECIMENOrdering Facility: [facility] Address: [address] [place] [address] Performed By: #### 5 8410-2 ####[facility] LABORATORYCLIA [id number] [address] [place] Platelets (Bld) [#/Vol] 278 10*3/uL Normal 150-400 [facility] Comment on above: Order Comment: Speci men Type: BLOOD SPECIMENOrdering Facility: [facility] Address: [address] [place] [address] Performed By: #### 5 8410-2 ####[facility] LABORATORYCLIA [id number] [place] [address] [place] RBC (Bld) [#/Vol] 4.13 10*6/uL Normal 3.90-5.20 [facility] Comment on above: Order Comment: Speci men Type: BLOOD SPECIMENOrdering Facility: [facility] Address: [address] [place] [address] Performed By: #### 5 8410-2 ####[facility] LABORATORYCLIA [id number] [place] [address] [place] WBC (Bld) [#/Vol] 4.70 10*3/uL Normal 3.70-11.00 [facility] Comment on above: Order Comment: Speci men Type: BLOOD SPECIMENOrdering Facility: [facility] Address: [address] [place] [address] [place] [address] Performed By: #### 5 8410-2 ####[facility] LABORATORYCLIA [id number] [place] [address] [place] NURSING PROGon 06-14-2024 NURSING PROG HNO ID: [id number] Author: JOSE JERNIGAN, RADHA Service: Nursing Author Type: Registered Nurse [...] - ordered XR and lidocaine patch Normal [facility] XR SHLDR >/=3V AP/JASON AP/OTH R [...] portions of the right lung are clear. Cardiovascular Technician: DEVEN Transcribe Date/Time: Jun 14 2024 1:33P Dictated by : DEV WELCH MD This examination was interpreted and the report reviewed and electronically signed by: DEV WELCH MD on Jun 14 2024 1:35PM EST [id number] Normal [facility] ALLIED HEALTHon 06-13-2024 ALLIED HEALTH HNO ID: [id number] Author: ALFRED DALEY Chaplain Service: ? Author Type: Submarine Worker Type: Allied Health Filed: 06/13/2024 14:38 Note Text: SPIRITUAL CARE ASSESSMENT SERVICE DATE: 06/13/2024 SERVICE TIME: 11:53 Visit with: Patient Length of visit (minutes): 5 Latter-Day / Spirituality: Pt did not Disc. Reason: [...] TIME: 2:31 PM PAGER/CONTACT #: [phone] Normal [facility] Basic metabolic 2000 panelon 06-13-2024 Anion gap [Moles/Vol] 11 mmol/L Normal 8-15 [facility] Comment on above: Order Comment: Speci men Type: BLOOD SPECIMEN [facility] Address: [address] [place] [address] Performed By: #### 2 4321-2, 46544-5, #### [facility] CLIA [id number] [address] [place] [address] [place] Calcium [Mass/Vol] 8.9 mg/dL Normal 8.5-10.2 [facility] Comment on above: Order Comment: Speci men Type: BLOOD SPECIMEN [facility] Address: [address] [place] [address] Performed By: #### 2 4321-2, 04575-9, #### [facility] CLIA [id number] [address] [place] [address] [place] Chloride [Moles/Vol] 101 mmol/L Normal 98-107 [facility] Comment on above: Order Comment: Speci men Type: BLOOD SPECIMEN [facility] Address: [address] [place] [address] Performed By: #### 2 4321-2, 33391-6, #### [facility] CLIA [id number] [address] [place] CO2 [Moles/Vol] 24 mmol/L Normal 22-30 [facility] Comment on above: Order Comment: Speci men Type: BLOOD SPECIMEN [facility] Address: [address] [place] [address] Performed By: #### 2 4321-2, 87316-6, #### [facility] CLIA [id number] [address] [place] Creatinine [Mass/Vol] 1.04 mg/dL High 0.58-0.96 [facility] Comment on above: Order Comment: Speci men Type: BLOOD SPECIMEN [facility] Address: [address] [place] [address] Performed By: #### 2 4321-2, 81122-2, #### [facility] CLIA [id number] [address] Creatinine and Glomerular filtration rate.predicted panel (S/P/Bld) 53 mL/min/1.73m??? Low >=60 [facility] Comment on above: Order Comment: Speci men Type: BLOOD SPECIMEN [facility] Address: [address] [place] [address] Result Comment: Isa mated Glomerular Filtration Rate [...] actual GFR. Performed By: #### 2 4321-2, 36375-8, #### [facility] CLIA [id number] [address] [place] [address] [place] Glucose [Mass/Vol] 95 mg/dL Normal 74-99 [facility] Comment on above: Order Comment: Rhina mason Type: BLOOD SPECIMEN [facility] Address: [address] [place] [address] Result Comment: The [place] Diabetes Association (ADA) provides guidance for cutoff [...] Standards of Medical Care in Diabetes 2016, [place] [employer]. Diabetes Care. 2016.39(Suppl 1). Performed By: #### 2 4321-2, 22868-9, #### [facility] CLIA [id number] [address] [place] [address] [place] Potassium [Moles/Vol] 3.8 mmol/L Normal 3.7-5.1 [facility] Comment on above: Order Comment: Rhina mason Type: BLOOD SPECIMEN [facility] Address: [address] [place] [address] Performed By: #### 2 4321-2, 52048-0, #### [facility] CLIA [id number] [address] [place] [address] [place] Sodium [Moles/Vol] 136 mmol/L Normal 136-144 [facility] Comment on above: Order Comment: Rhina mason Type: BLOOD SPECIMEN [facility] Address: [address] [place], [place] [address] Performed By: #### 2 4321-2, 14449-5, #### [facility] CLIA [id number] [address] [place] Urea nitrogen [Mass/Vol] 16 mg/dL Normal 7-21 [facility] Comment on above: Order Comment: Speci men Type: BLOOD SPECIMEN [facility] Address: [address] [place] [address] Performed By: #### 2 4321-2, 61688-9, 18220-6 #### [facility] CLIA [id number] [address] [facility] CBC panel Auto (Bld)on 06-13 Erythrocyte distribution width (RBC) [Ratio] 15.5 % High 11.5-15.0 [facility] Comment on above: Order Comment: Speci men Type: BLOOD SPECIMENOrdering Facility: [facility] Address: [address] [place] [address] Performed By: #### 5 8410-2 ####[facility]ATORYCLIA [id number] [address] [place] [facility] Hematocrit (Bld) [Volume fraction] 33.1 % Low 36.0-46.0 [facility] Comment on above: Order Comment: Speci men Type: BLOOD SPECIMENOrdering Facility: [facility] Address: [address] [place] [address] Performed By: #### 5 8410-2 ####[facility]ATORYCLIA [id number] [address] [place] Hemoglobin (Bld) [Mass/Vol] 10.2 g/dL Low 11.5-15.5 [facility] Comment on above: Order Comment: Speci men Type: BLOOD SPECIMENOrdering Facility: [facility] Address: [address] [place] [address] Performed By: #### 5 8410-2 ####[facility]ATORYCLIA [id number] [address] [place] MCH (RBC) [Entitic mass] 26.5 pg Normal 26.0-34.0 [facility] Comment on above: Order Comment: Speci men Type: BLOOD SPECIMENOrdering Facility: [facility] Address: [address] [place] [address] Performed By: #### 5 8410-2 ####[facility]ATORYCLIA [id number] [address] MCHC (RBC) [Mass/Vol] 30.8 g/dL Normal 30.5-36.0 [facility] Comment on above: Order Comment: Speci men Type: BLOOD SPECIMENOrdering Facility: [facility] Address: [address] [place] [address] Performed By: #### 5 8410-2 ####[facility]ATORYCLIA [id number] [address] MCV (RBC) [Entitic vol] 86.0 fL Normal 80.0-100.0 [facility] Comment on above: Order Comment: Speci men Type: BLOOD SPECIMENOrdering Facility: [facility] Address: [address] [place] [address] Performed By: #### 5 8410-2 ####[facility]ATORYCLIA [id number] [address] Nucleated RBC (Bld) [#/Vol] 10*3/uL Normal <0.01 [facility] Comment on above: Order Comment: Speci men Type: BLOOD SPECIMENOrdering Facility: [facility] Address: [address] [place] [address] Performed By: #### 5 8410-2 ####[facility]ATORYCLIA [id number] [address] Platelet mean volume (Bld) [Entitic vol] 9.6 fL Normal 9.0-12.7 [facility] Comment on above: Order Comment: Speci men Type: BLOOD SPECIMENOrdering Facility: [facility] Address: [address] [place] [address] Performed By: #### 5 8410-2 ####[facility]ORATORYCLIA [id number] [place] [address] [place] Platelets (Bld) [#/Vol] 287 10*3/uL Normal 150-400 [facility] Comment on above: Order Comment: Speci men Type: BLOOD SPECIMENOrdering Facility: [facility] Address: [address] [place] [address] Performed By: #### 5 8410-2 ####[facility]ATORYCLIA [id number] [place] [address] [place] RBC (Bld) [#/Vol] 3.85 10*6/uL Low 3.90-5.20 [facility] Comment on above: Order Comment: Speci men Type: BLOOD SPECIMENOrdering Facility: [facility] Address: [address] [place] [address] Performed By: #### 5 8410-2 ####[facility]ATORYCLIA [id number] [address] [place] [facility] WBC (Bld) [#/Vol] 4.79 10*3/uL Normal 3.70-11.00 [facility] Comment on above: Order Comment: Speci men Type: BLOOD SPECIMENOrdering Facility: [facility] Address: [address] [place] [address] Performed By: #### 5 8410-2 ####[facility]ATORYCLIA [id number] [address] [place] aPTT PPPon 06-13-2024 aPTT Coag (PPP) [Time] 51.3 s High 23.0-32.4 [facility] Comment on above: Order Comment: Speci men Type: BLOOD SPECIMEN [facility] Address: [address] [place] [address] Performed By: #### 2 4321-2, 00677-2, 89867-8 #### [facility] CLIA [id number] [address] aPTT Coag (PPP) [Time] 89.0 s High 23.0-32.4 [facility] Comment on above: Order Comment: Speci men Type: BLOOD SPECIMEN [facility] Address: [address] [place], [place] [address] Performed By: #### 2 4321-2, 22082-9, #### [facility] CLIA [id number] [address] [place] ALLIED HEALTHon 06-12-2024 ALLIED HEALTH HNO ID: [id number] Author: HELLEN SEVILLA RT(R) Service: Radiology Author [...] PATIENT PRESENTS WITH AN IMPLANTABLE OR ATTACHED FACILITIES SPECIALIST: No RADIOLOGY DEPARTMENT: CT; Exam(s) Completed: Brain PERIPHERAL IV DATA: Not applicable SIGNED BY: RT Reji(R) June 12, 2024 9:13 AM Normal [facility] CBC W Auto Differential pane l (Bld)on 06-12-2024 Basophils (Bld) [#/Vol] 0.03 10*3/uL Normal <0.11 [facility] Comment on above: Order Comment: Speci men Type: BLOOD SPECIMEN [facility] Address: [address] [place] [address] Performed By: #### 2 4321-2, 78197-0, #### [facility] CLIA [id number] [address] Basophils/100 WBC (Bld) 0.6 % Normal A [facility] Comment on above: Order Comment: Speci men Type: BLOOD SPECIMEN [facility] Address: [address] [place] [address] Performed By: #### 2 4321-2, 78625-1, #### [facility] CLIA [id number] [address] Differential cell count method Nom (Bld) Auto Normal [facility] Comment on above: Order Comment: Speci men Type: BLOOD SPECIMEN [facility] Address: [address] [place] [address] Performed By: #### 2 4321-2, 34530-0, #### [facility] CLIA [id number] [address] [place] Eosinophils (Bld) [#/Vol] 0.05 10*3/uL Normal <0.46 [facility] Comment on above: Order Comment: Speci men Type: BLOOD SPECIMEN [facility] Address: [address] [place] [address] Performed By: #### 2 1-2, 60433-4, #### [facility] CLIA [id number] [address] [facility] Eosinophils/100 WBC (Bld) 1.0 % Normal [facility] Comment on above: Order Comment: Speci men Type: BLOOD SPECIMEN [facility] Address: [address] [place] [address] Performed By: #### 2 1-2, 34209-8, #### [facility] CLIA [id number] [address] [place] Erythrocyte distribution width (RBC) [Ratio] 15.6 % High 11.5-15.0 [facility] Comment on above: Order Comment: Speci men Type: BLOOD SPECIMEN [facility] Address: [address] [place] [address] Performed By: #### 2 4321-2, 38916-1, #### [facility] CLIA [id number] [address] [place] Hematocrit (Bld) [Volume fraction] 34.6 % Low 36.0-46.0 [facility] Comment on above: Order Comment: Speci men Type: BLOOD SPECIMEN [facility] Address: [address] [place] [address] Performed By: #### 2 4321-2, 02416-8, #### [facility] CLIA [id number] [address] [place] Hemoglobin (Bld) [Mass/Vol] 10.6 g/dL Low 11.5-15.5 [facility] Comment on above: Order Comment: Speci men Type: BLOOD SPECIMEN [facility] Address: [address] [place] [address] Performed By: #### 2 4321-2, 78309-3, #### [facility] CLIA [id number] [address] [place] Immature granulocytes (Bld) [#/Vol] 10*3/uL Normal <0.10 [facility] Comment on above: Order Comment: Speci men Type: BLOOD SPECIMEN [facility] Address: [address] [place] [address] Performed By: #### 2 4321-2, 71866-8, #### [facility] CLIA [id number] [address] [place] Immature granulocytes/100 WBC (Bld) 0.2 % Normal [facility] Comment on above: Order Comment: Speci men Type: BLOOD SPECIMEN [facility] Address: [address] [place] [address] Performed By: #### 2 4321-2, 47989-6, #### [facility] CLIA [id number] [address] [place] [address] [place] Lymphocytes (Bld) [#/Vol] 1.65 10*3/uL Normal 1.00-4.00 [facility] Comment on above: Order Comment: Speci men Type: BLOOD SPECIMEN [facility] Address: [address] [place] [address] Performed By: #### 2 4321-2, 84299-2, #### [facility] CLIA [id number] [address] Lymphocytes/100 WBC (Bld) 31.9 % Normal [facility] Comment on above: Order Comment: Speci men Type: BLOOD SPECIMEN [facility] Address: [address] [place] [address] Performed By: #### 2 4321-2, 94838-1, #### [facility] CLIA [id number] [address] [place] MCH (RBC) [Entitic mass] 26.2 pg Normal 26.0-34.0 [facility] Comment on above: Order Comment: Speci men Type: BLOOD SPECIMEN [facility] Address: [address] [place] [address] Performed By: #### 2 1-2, 31097-5, #### [facility] CLIA [id number] [address] [facility] MCHC (RBC) [Mass/Vol] 30.6 g/dL Normal 30.5-36.0 [facility] Comment on above: Order Comment: Speci men Type: BLOOD SPECIMEN [facility] Address: [address] [place] [address] Performed By: #### 2 4321-2, 11355-3, #### [facility] CLIA [id number] [address] MCV (RBC) [Entitic vol] 85.6 fL Normal 80.0-100.0 [facility] Comment on above: Order Comment: Speci men Type: BLOOD SPECIMEN [facility] Address: [address] [place] [address] Performed By: #### 2 4321-2, 18944-1, #### [facility] CLIA [id number] [address] [place] [address] [place] Monocytes (Bld) [#/Vol] 0.46 10*3/uL Normal <0.87 [facility] Comment on above: Order Comment: Speci men Type: BLOOD SPECIMEN [facility] Address: [address] [place] [address] Performed By: #### 2 4321-2, 34070-1, #### [facility] CLIA [id number] [address] [place] Monocytes/100 WBC (Bld) 8.9 % Normal [facility] Comment on above: Order Comment: Speci men Type: BLOOD SPECIMEN [facility] Address: [address] [place] [address] Performed By: #### 2 4320-2, 08370-0, #### [facility] CLIA [id number] [address] [place] Neutrophils (Bld) [#/Vol] 2.97 10*3/uL Normal 1.45-7.50 [facility] Comment on above: Order Comment: Speci men Type: BLOOD SPECIMEN [facility] Address: [address] [place] [address] Performed By: #### 2 4320-2, 11435-6, #### [facility] CLIA [id number] [address] [place] Neutrophils/100 WBC (Bld) 57.4 % Normal [facility] Comment on above: Order Comment: Speci men Type: BLOOD SPECIMEN [facility] Address: [address] [place] [address] Performed By: #### 2 1-2, 70667-4, #### [facility] CLIA [id number] [address] [place] [address] [place] Nucleated RBC (Bld) [#/Vol] 10*3/uL Normal <0.01 [facility] Comment on above: Order Comment: Speci men Type: BLOOD SPECIMEN [facility] Address: [address] [place] [address] Performed By: #### 2 4321-2, 72316-2, #### [facility] CLIA [id number] [address] [place] Nucleated RBC/100 WBC (Bld) [Ratio] 0.0 /100 WBC Normal [facility] Comment on above: Order Comment: Speci men Type: BLOOD SPECIMEN [facility] Address: [address] [place] [address] Performed By: #### 2 4321-2, 51929-5, #### [facility] CLIA [id number] [address] [place] [address] [place] Platelet mean volume (Bld) [Entitic vol] 9.6 fL Normal 9.0-12.7 [facility] Comment on above: Order Comment: Speci men Type: BLOOD SPECIMEN [facility] Address: [address] [place] [address] Performed By: #### 2 1-2, 57158-2, #### [facility] CLIA [id number] [address] [place] [address] [place] Platelets (Bld) [#/Vol] 314 10*3/uL Normal 150-400 [facility] Comment on above: Order Comment: Speci men Type: BLOOD SPECIMEN [facility] Address: [address] [place] [address] Performed By: #### 2 1-2, 18476-2, #### [facility] CLIA [id number] [address] [place] [address] [place] RBC (Bld) [#/Vol] 4.04 10*6/uL Normal 3.90-5.20 [facility] Comment on above: Order Comment: Speci men Type: BLOOD SPECIMEN Ordering Facility: [facility] Address: [address] [place], [place] [address] Performed By: #### 2 4321-2, 43245-0, #### [facility] CLIA [id number] 1 [place] [id number] [place] WBC (Bld) [#/Vol] 5.17 10*3/uL Normal 3.70-11.00 [facility] Comment on above: Order Comment: Speci men Type: BLOOD SPECIMEN [facility]ing Facility: [facility] Address: [address] [place], [place] [address] Performed By: #### 2 4321-2, 32071-2, #### [facility] CLIA [id number] [address] [place] CONSULTon 06-12-2024 CONSULT HNO ID: [id number] Author: MINA TALBERT MD Service: Cardiovascular Disease Author Type: Physician Type: Consults Filed: 06/12/2024 10:40 Note Text: CARDIOLOGY CONSULTATION- [facility] Patient Name: Mel Castillo : 1940 PRIMARY CARE PHYSICIAN: Jared Evans MD [address] [place] [address] REFERRING PHYSICIAN No referring provider defined for [...] presumptive 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[facility] with history of prior stroke PAD [...] hospital a few months ago at [facility] she was taking her Eliquis [...] Don Edwards DO 25 mg at 06/11/[address] 40 mg tab(s) (PROTONIX) 40 [...] Orthostatic Pulse (more content not included)... Normal [facility] CONSULT PROGon 06-12-2024 CONSULT PROG HNO ID: [id number] Author: NICOLAS TESFAYE APRN.SHAMIKA Service: Neurology General [...] Score: 1 (06/12/24 0945 : Nicolas Tesfaye, MANAGER [employer]IV[employer].STRETCHING MACHINE TENDER FRAME) 1 MENTAL STATUS: Alert, oriented to person, [...] and Prevention (personally reviewed by Nicolas Tesfaye APRN.STRETCHING MACHINE TENDER FRAME): Daily Rounding Date: 06/12/24 Daily Rounding Time: [...] Serna David (more content not included)... Normal [facility] CT BRAIN WO IVCONon 06-12-[address] BRAIN WO IVCON * * *Final Report* * * DATE OF EXAM: Jun 12 2024 9:25AM [facility] 0504 - CT BRAIN WO IVCON [...] intracranial hemorrhage. Chronic changes, as detailed above. Cardiovascular Technician: DEVEN Transcribe Date/Time: Jun 12 2024 9:42A Dictated by : LDYIA EVANS MD This examination was interpreted and the report reviewed and electronically signed by: LYDIA EVANS MD on Jun 12 2024 9:47AM EST [id number] Normal [facility] Comprehensive metabolic 2000 panelon 06-12-2024 Albumin [Mass/Vol] 3.6 g/dL Low 3.9-4.9 [facility] Comment on above: Order Comment: Speci men Type: BLOOD SPECIMEN [facility] Address: [address] [place] [address] Performed By: #### 2 4321-2, 94596-1, #### [facility] CLIA [id number] [address] [facility] ALP [Catalytic activity/Vol] 88 U/L Normal 34-123 [facility] Comment on above: Order Comment: Speci men Type: BLOOD SPECIMEN Ordering Facility: [facility] Address: [address] [place] [address] Performed By: #### 2 4321-2, 86941-9, #### [facility] CLIA [id number] [address] [place] ALT With P-5'-P [Catalytic activity/Vol] 6 U/L Low 7-38 [facility] Comment on above: Order Comment: Speci men Type: BLOOD SPECIMEN Ordering Facility: [facility] Address: [address] [place] [address] Performed By: #### 2 4321-2, 16768-1, #### [facility] CLIA [id number] [address] [place] Anion gap [Moles/Vol] 13 mmol/L Normal 8-15 [facility] Comment on above: Order Comment: Speci men Type: BLOOD SPECIMEN Ordering Facility: [facility] Address: [address] [place] [address] Performed By: #### 2 4321-2, 75802-0, #### [facility] CLIA [id number] [address] [place] AST With P-5'-P [Catalytic activity/Vol] 9 U/L Low 13-35 [facility] Comment on above: Order Comment: Speci men Type: BLOOD SPECIMEN Ordering Facility: [facility] Address: [address] [place] [address] Performed By: #### 2 4321-2, 48833-1, #### [facility] CLIA [id number] [address] [place] Bilirubin [Mass/Vol] 0.6 mg/dL Normal 0.2-1.3 [facility] Comment on above: Order Comment: Speci men Type: BLOOD SPECIMEN Ordering Facility: [facility] Address: [address] [place] [address] Performed By: #### 2 4321-2, 25855-4, #### [facility] CLIA [id number] [address] [place] Calcium [Mass/Vol] 9.2 mg/dL Normal 8.5-10.2 [facility] Comment on above: Order Comment: Speci men Type: BLOOD SPECIMEN Ordering Facility: [facility] Address: [address] [place] [address] Performed By: #### 2 4321-2, 77031-0, #### [facility] CLIA [id number] 1 [place] [address] [place] Chloride [Moles/Vol] 101 mmol/L Normal 98-107 [facility] Comment on above: Order Comment: Speci men Type: BLOOD SPECIMEN Ordering Facility: [facility] Address: [address] [place] [address] Performed By: #### 2 4321-2, 04954-5, #### [facility] CLIA [id number] 1 [place] [address] [place] CO2 [Moles/Vol] 23 mmol/L Normal 22-30 [facility] Comment on above: Order Comment: Speci men Type: BLOOD SPECIMEN Ordering Facility: [facility] Address: [address] [place] [address] Performed By: #### 2 4321-2, 22330-4, #### [facility] CLIA [id number] [address] [facility] Creatinine [Mass/Vol] 1.02 mg/dL High 0.58-0.96 [facility] Comment on above: Order Comment: Rhina mason Type: BLOOD SPECIMEN Ordering Facility: [facility] Address: [address] [place] [address] Performed By: #### 2 4321-2, 57238-8, #### [facility] CLIA [id number] [address] Creatinine and Glomerular filtration rate.predicted panel (S/P/Bld) 54 mL/min/1.73m??? Low >=60 [facility] Comment on above: Order Comment: Rhina mason Type: BLOOD SPECIMEN Ordering Facility: [facility] Address: [address] [place] [address] Result Comment: Isa mated Glomerular Filtration Rate [...] actual GFR. Performed By: #### 2 4321-2, 09031-9, #### [facility] CLIA [id number] [address] [place] Glucose [Mass/Vol] 109 mg/dL High 74-99 [facility] Comment on above: Order Comment: Rhina mason Type: BLOOD SPECIMEN Ordering Facility: [facility] Address: [address] [place] [address] Result Comment: The [place] Diabetes Association (ADA) provides guidance for cutoff [...] Standards of Medical Care in Diabetes 2016, [place] [employer]. Diabetes Care. 2016.39(Suppl 1). Performed By: #### 2 4321-2, 22822-5, #### [facility] CLIA [id number] 1 [place] [address] [place] Potassium [Moles/Vol] 4.0 mmol/L Normal 3.7-5.1 [facility] Comment on above: Order Comment: Rhina mason Type: BLOOD SPECIMEN Ordering Facility: [facility] Address: [address] [place] [address] Performed By: #### 2 4321-2, 74852-6, #### [facility] CLIA [id number] 1 [place] [address] [place] Protein [Mass/Vol] 6.4 g/dL Normal 6.3-8.0 [facility] Comment on above: Order Comment: Rhina mason Type: BLOOD SPECIMEN Ordering Facility: [facility] Address: [address] [place] [address] Performed By: #### 2 4321-2, 42632-0, #### [facility] CLIA [id number] 1 [place] [address] [place] Sodium [Moles/Vol] 137 mmol/L Normal 136-144 [facility] Comment on above: Order Comment: Rhina mason Type: BLOOD SPECIMEN Ordering Facility: [facility] Address: [address] [place] [address] Performed By: #### 2 4321-2, 86253-4, #### [facility] CLIA [id number] 1 [place] [address] [place] Urea nitrogen [Mass/Vol] 12 mg/dL Normal 7-21 [facility] Comment on above: Order Comment: Speci men Type: BLOOD SPECIMEN Ordering Facility: [facility] Address: [address] [place] [address] Performed By: #### 2 4321-2, 14593-8, 35611-2 #### [facility] CLIA [id number] 1 [place] [id number] [facility] Magnesium SerPl-mCncon 06-12 Magnesium [Mass/Vol] 2.3 mg/dL Normal 1.7-2.3 [facility] Comment on above: Order Comment: Speci men Type: BLOOD SPECIMEN Ordering Facility: [facility] Address: [address] [place] [address] Performed By: #### 2 4321-2, 18700-7, 04960-2 #### [facility] CLIA [id number] [address] NURSING PROGon 06-12-2024 NURSING PROG HNO ID: [id number] Author: ROBINSON VELÁSQUEZ, RADHA Service: ? Author [...] Next PTT draw due at 1900 Normal [facility] PT EDon 06-12-2024 PT ED HNO ID: [id number] Author: DOT PETERSON [facility] Service: Pharmacy Author Type: ? Type: Patient Education Filed: 06/12/2024 16:17 Note Text: Attestation signed by Dot Peterson [facility] at 06/12/2024 4:17 PM I [...] questions. Patient aware of copay. Nayana Rowan, Studio Manager Normal [facility] THERAPY NTon 06-12-2024 THERAPY NT HNO ID: [id number] Author: LATOYA LONG PT Service: Physical Therapy Author Type: Physical Therapist Type: Therapy (PT/OT/Speech/Resp) Filed: 06/12/2024 15:33 Note Text: Physical Therapy Treatment Summary SERVICE DATE: 06/12/2024 SERVICE TIME: 1445 to 1509 ROOM: [place] [address] PT 6 Clicks Score: 13 DISCHARGE RECOMMENDATIONS [...] Lack of coordination-other TREATMENT INTERVENTIONS Therapeutic Activity (98765), Neuromuscular Reeducation (37838) Timed Code Treatment (minutes): 23 Skilled Treatment Time (minutes): 23 Therapeutic Activity (74540) Treatment Minutes: 10 $ Therapeutic Activity (71311) Billed Units: 1 unit Training and assist with bed mobility, transfers and taking steps in place and side steps along the EOB with the walker. Neuromuscular Reeducation (30127) Treatment Minutes: 13 $ Neuromuscular Reeducation (14749) Billed Units: 1 unit Instructed pt in [...] position andrea (more content not included)... Normal [facility] THERAPY NT HNO ID: [id number] Author: SAMI WEINBERG OTR/L Service: Occupational Therapy Author Type: Occupational Therapist Type: Therapy (PT/OT/Speech/Resp) Filed: 06/12/2024 08:50 Note Text: Occupational Therapy Evaluation Summary SERVICE DATE: 06/12/2024 SERVICE TIME: 810 to 833 ROOM: [place] [address] OT 6 Clicks Score: 15 DISCHARGE RECOMMENDATIONS [...] and signs-other TREATMENT INTERVENTIONS Evaluation, Therapeutic Activity (38530) Timed Code Treatment (minutes): 8 Skilled Treatment Time (minutes): 23 $ Evaluation - Moderate (38213) Billed Units: 1 unit Therapeutic Activity (61633) Treatment Minutes: 8 $ Therapeutic Activity (34222) Billed Units: 1 unit TRAINING AND EDUCATION PROVIDED Assistive Device Use, Bed Mobility, Benefits of In-Hospital Mobility, Cognitive Stimulation Activities, Discharge Planning, Disease Specific Education, Role of Occupational Therapy, Safety/Judgment, Sitting Balance to Improve [place] with ADLs/Self-Care THERAPEUTIC SKILLS USED Activity Dosing, [...] Stand By (more content not included)... Normal [facility] aPTT PPPon 06-12-2024 aPTT Coag (PPP) [Time] 56.1 s High 23.0-32.4 [facility] Comment on above: Order Comment: Speci men Type: BLOOD SPECIMEN Ordering Facility: [facility] Address: [address] [place] [address] Performed By: #### 2 4321-2, 14776-7, 60129-0 #### [facility] CLIA [id number] [address] aPTT Coag (PPP) [Time] 79.0 s High 23.0-32.4 [facility] Comment on above: Order Comment: Speci men Type: BLOOD SPECIMEN Ordering Facility: [facility] Address: [address] [place] [address] Performed By: #### 1 4979-9 #### [facility] CLIA [id number] [address] aPTT Coag (PPP) [Time] 123.9 s High 23.0-32.4 [facility] Comment on above: Order Comment: Speci men Type: BLOOD SPECIMEN Ordering Facility: [facility] Address: [address] [place] [address] Performed By: #### 2 4321-2, 28328-0, #### [facility] CLIA [id number] [address] aPTT Coag (PPP) [Time] 117.3 s High 23.0-32.4 [facility] Comment on above: Order Comment: Speci men Type: BLOOD SPECIMEN Ordering Facility: [facility] Address: [address] [place] [address] Performed By: #### 2 4321-2, 36157-5, 41325-7 #### [facility] CLIA [id number] [address] [place] 36on 06-11-[address] [place] [address] [facility] HNO ID: [id number] Author: FABIO KERR Tech Service: ? Author Type: Sleeping Car Conductor Type: Allied Health Filed: 06/11/2024 14:16 Note [...] PATIENT PRESENTS WITH AN IMPLANTABLE OR ATTACHED FACILITIES SPECIALIST: No RADIOLOGY DEPARTMENT: MR; Exam(s) Completed: Head: Routine Brain [place] MRA MRA Carotid PERIPHERAL IV DATA: Not applicable SIGNED BY: Anne Marie Carrillo June 11, 2024 2:15 PM Normal [facility] CBC W Auto Differential pane l (Bld)on 06-11-2024 Basophils (Bld) [#/Vol] 0.03 10*3/uL Normal <0.11 [facility] Comment on above: Order Comment: Rhina mason Type: BLOOD SPECIMEN Ordering Facility: [facility] Address: [address] [place] [address] Performed By: #### 2 4321-2, 68059-1, #### [facility] CLIA [id number] [address] Basophils/100 WBC (Bld) 0.4 % Normal A [facility] Comment on above: Order Comment: Rhina mason Type: BLOOD SPECIMEN Ordering Facility: [facility] Address: [address] [place] [address] Performed By: #### 2 4321-2, 93524-5, #### [facility] CLIA [id number] [address] [facility] Differential cell count method Nom (Bld) Auto Normal [facility] Comment on above: Order Comment: Samiri isabella Type: BLOOD SPECIMEN Ordering Facility: [facility] Address: [address] [place] [address] Performed By: #### 2 4321-2, 72154-4, #### [facility] CLIA [id number] [address] [place] [address] [place] Eosinophils (Bld) [#/Vol] 10*3/uL Normal <0.46 [facility] Comment on above: Order Comment: Speci men Type: BLOOD SPECIMEN Ordering Facility: [facility] Address: [address] [place] [address] Performed By: #### 2 4321-2, 89760-0, #### [facility] CLIA [id number] [address] [place] Eosinophils/100 WBC (Bld) 0.3 % Normal [facility] Comment on above: Order Comment: Speci men Type: BLOOD SPECIMEN Ordering Facility: [facility] Address: [address] [place] [address] Performed By: #### 2 4321-2, 56777-5, #### [facility] CLIA [id number] [address] [place] Erythrocyte distribution width (RBC) [Ratio] 15.6 % High 11.5-15.0 [facility] Comment on above: Order Comment: Speci men Type: BLOOD SPECIMEN Ordering Facility: [facility] Address: [address] [place] [address] Performed By: #### 2 1-2, 76307-2, #### [facility] CLIA [id number] [address] [place] Hematocrit (Bld) [Volume fraction] 37.6 % Normal 36.0-46.0 [facility] Comment on above: Order Comment: Speci men Type: BLOOD SPECIMEN Ordering Facility: [facility] Address: [address] [place] [address] Performed By: #### 2 1-2, 60766-8, #### [facility] CLIA [id number] [address] [place] Hemoglobin (Bld) [Mass/Vol] 11.5 g/dL Normal 11.5-15.5 [facility] Comment on above: Order Comment: Speci men Type: BLOOD SPECIMEN Ordering Facility: [facility] Address: [address] [place] [address] Performed By: #### 2 4321-2, 64914-5, #### [facility] CLIA [id number] [address] [place] Immature granulocytes (Bld) [#/Vol] 0.03 10*3/uL Normal <0.10 [facility] Comment on above: Order Comment: Speci men Type: BLOOD SPECIMEN Ordering Facility: [facility] Address: [address] [place] [address] Performed By: #### 2 4321-2, 05636-7, #### [facility] CLIA [id number] [address] [place] Immature granulocytes/100 WBC (Bld) 0.4 % Normal [facility] Comment on above: Order Comment: Speci men Type: BLOOD SPECIMEN Ordering Facility: [facility] Address: [address] [place] [address] Performed By: #### 2 1-2, 03384-7, #### [facility] CLIA [id number] [address] [place] Lymphocytes (Bld) [#/Vol] 1.26 10*3/uL Normal 1.00-4.00 [facility] Comment on above: Order Comment: Speci men Type: BLOOD SPECIMEN Ordering Facility: [facility] Address: [address] [place] [address] Performed By: #### 2 4321-2, 33052-4, #### [facility] CLIA [id number] [address] [place] Lymphocytes/100 WBC (Bld) 16.9 % Normal [facility] Comment on above: Order Comment: Speci men Type: BLOOD SPECIMEN Ordering Facility: [facility] Address: [address] [place] [address] Performed By: #### 2 4321-2, 39214-3, #### [facility] CLIA [id number] [address] MCH (RBC) [Entitic mass] 26.6 pg Normal 26.0-34.0 [facility] Comment on above: Order Comment: Speci men Type: BLOOD SPECIMEN Ordering Facility: [facility] Address: [address] [place] [address] Performed By: #### 2 4321-2, 68182-9, #### [facility] CLIA [id number] [address] [facility] MCHC (RBC) [Mass/Vol] 30.6 g/dL Normal 30.5-36.0 [facility] Comment on above: Order Comment: Speci men Type: BLOOD SPECIMEN Ordering Facility: [facility] Address: [address] [place] [address] Performed By: #### 2 432-2, 87387-4, #### [facility] CLIA [id number] [address] MCV (RBC) [Entitic vol] 87.0 fL Normal 80.0-100.0 [facility] Comment on above: Order Comment: Speci men Type: BLOOD SPECIMEN Ordering Facility: [facility] Address: [address] [place] [address] Performed By: #### 2 432-2, 06199-0, #### [facility] CLIA [id number] [address] [facility] Monocytes (Bld) [#/Vol] 0.68 10*3/uL Normal <0.87 [facility] Comment on above: Order Comment: Speci men Type: BLOOD SPECIMEN Ordering Facility: [facility] Address: [address] [place] [address] Performed By: #### 2 4321-2, 53858-4, #### [facility] CLIA [id number] [address] Monocytes/100 WBC (Bld) 9.1 % Normal A [facility] Comment on above: Order Comment: Speci men Type: BLOOD SPECIMEN Ordering Facility: [facility] Address: [address] [place] [address] Performed By: #### 2 4321-2, 71734-7, #### [facility] CLIA [id number] [address] [place] [address] [place] Neutrophils (Bld) [#/Vol] 5.43 10*3/uL Normal 1.45-7.50 [facility] Comment on above: Order Comment: Speci men Type: BLOOD SPECIMEN Ordering Facility: [facility] Address: [address] [place] [address] Performed By: #### 2 4321-2, 34823-7, #### [facility] CLIA [id number] [address] [place] Neutrophils/100 WBC (Bld) 72.9 % Normal [facility] Comment on above: Order Comment: Speci men Type: BLOOD SPECIMEN Ordering Facility: [facility] Address: [address] [place] [address] Performed By: #### 2 1-2, 70030-0, #### [facility] CLIA [id number] [address] [place] Nucleated RBC (Bld) [#/Vol] 10*3/uL Normal <0.01 [facility] Comment on above: Order Comment: Speci men Type: BLOOD SPECIMEN Ordering Facility: [facility] Address: [address] [place] [address] Performed By: #### 2 4321-2, 13930-2, #### [facility] CLIA [id number] [address] [place] Nucleated RBC/100 WBC (Bld) [Ratio] 0.0 /100 WBC Normal [facility] Comment on above: Order Comment: Speci men Type: BLOOD SPECIMEN Ordering Facility: [facility] Address: [address] [place], [place] [address] Performed By: #### 2 4321-2, 19411-8, #### [facility] CLIA [id number] [address] [place] Platelet mean volume (Bld) [Entitic vol] 9.5 fL Normal 9.0-12.7 [facility] Comment on above: Order Comment: Speci men Type: BLOOD SPECIMEN Ordering Facility: [facility] Address: [address] [place] [address] Performed By: #### 2 4321-2, 39986-5, #### [facility] CLIA [id number] [address] [place] Platelets (Bld) [#/Vol] 329 10*3/uL Normal 150-400 [facility] Comment on above: Order Comment: Speci men Type: BLOOD SPECIMEN Ordering Facility: [facility] Address: [address] [place] [address] Performed By: #### 2 4321-2, 49176-6, #### [facility] CLIA [id number] [address] [place] RBC (Bld) [#/Vol] 4.32 10*6/uL Normal 3.90-5.20 [facility] Comment on above: Order Comment: Speci men Type: BLOOD SPECIMEN Ordering Facility: [facility] Address: [address] [place] [address] Performed By: #### 2 4321-2, 01764-1, #### [facility] CLIA [id number] [address] [place] WBC (Bld) [#/Vol] 7.45 10*3/uL Normal 3.70-11.00 [facility] Comment on above: Order Comment: Speci men Type: BLOOD SPECIMEN Ordering Facility: [facility] Address: [address] [place] [address] Performed By: #### 2 4321-2, 76113-9, #### [facility] CLIA [id number] [address] [facility] CONSULTon 06-11-2024 CONSULT HNO ID: [id number] Author: JENNY WALLACE MD Service: Neurology General [...] Vital Signs: (more content not included)... Normal [facility] CONSULT HNO ID: [id number] Author: TOÑO MANZO MD Service: Urology Author [...] 173/82 160/77 Pulse: 86 70 76 Resp: 18 Temp: 36.4 ?C (97.6 ?F) 36.5 [...] discussed with the Patient or Patient's Authorized Foot Orthopedist. As applicable, any other physician, advance practice provider, medical student, or other health professional student that will be observing or involved in the sensitive examination for educational or training purposes was discussed with the Patient or Authorized Foot Orthopedist. The Patient or Authorized Foot Orthopedist has agreed to proceed with the sensitive [...] lesion. Consider follow-up renal CT/MR for characterization. Cardiovascular Technician: DEVEN Transcribe D (more content not included)... [facility] CONSULT PROGon 06-11-2024 CONSULT PROG HNO ID: [id number] Author: CARL PERSAUD RPh Service: Pharmacy Author [...] care of this patient. Carl Persaud RPh [facility] CONSULT PROG HNO ID: [id number] Author: CARL PERSAUD RPh Service: Pharmacy Author [...] on 06/10/24. Patient was being managed by [facility] but was recently released due [...] education: No Signature: Carl Persaud RPh Normal [facility] CT ABD/PEL W IVCONon 06-11- 024 CT ABD/PEL W IVCON * * *Final Report* * * DATE OF EXAM: Jun 11 2024 3:07AM [facility] 0530 - CT ABD/PEL W IVCON [...] to bilateral greater trochanters, similar to prior. Agricultural Lender (topogram) images: No additional findings. IMPRESSION: 1. Mild bilateral hydroureteronephrosis to the pelvic brim without evidence of ureterolithiasis. 2. Indeterminate left renal lesion. Consider follow-up renal CT/MR for characterization. Cardiovascular Technician: PSCB Transcribe Date/Time: Jun 11 2024 3:09A Dictated by : RAF AYALA MD This examination was interpreted and the report reviewed and electronically signed by: RAF AYALA MD on Jun 11 2024 3:40AM EST [id number] Normal [facility] CT BRAIN WO IVCONon 06-11-20 CT BRAIN WO IVCON * * *Final Report* * * DATE OF EXAM: Jun 11 2024 3:05AM [facility] 0504 - CT BRAIN WO IVCON [...] changes and small remote right occipital infarct. Cardiovascular Technician: DEVEN Transcribe Date/Time: Jun 11 2024 3:05A Dictated by : RIN LANE MD This examination was interpreted and the report reviewed and electronically signed by: RIN LANE MD on Jun 11 2024 3:16AM EST [id number] Normal [facility] ECHO WITH AGITATED SALINE CO NTRASTon 06-11-2024 ECHO WITH AGITATED SALINE CONTRAST Echocardiography Report: Transthoracic Echo [facility] Date of service: 06/11/2024 11:20:46 [facility] Ordering physician: DON EDWARDS Indication: TIA Technologist: Dinoar Fields [facility] Interpreting physician: Nando Costa MD PATIENT: Name: [...] * * * Final * * * [employer] : [id number] ISUID Normal [facility] ED NOTEon 06-11-2024 ED NOTE HNO ID: [id number] Author: GISSELL CARRINGTON RN Service: Emergency Medicine Author Type: Registered Nurse Type: ED Notes Filed: 06/11/2024 05:58 Note Text: Gave report to assigned RN on 2099. Assigned RN is ready to receive patient at this time. Normal [facility] ED NOTE HNO ID: [id number] Author: GISSELL CARRINGTON RN Service: Emergency Medicine Author Type: Registered Nurse Type: ED Notes Filed: 06/11/2024 00:40 Note Text: Dr. Mendoza at bedside placing a US IV at this time. Normal [facility] HIGH SENSITIVITY TROPONIN T (SECOND)on 06-11-2024 Troponin T.cardiac High sensitivity method [Mass/Vol] 14 ng/L High <12 [facility] Comment on above: Order Comment: Speci men Type: BLOOD SPECIMEN Ordering Facility: [facility] Address: [address] [place] [address] Performed By: #### 2 4321-2, 19102-0, 45971-5 #### [facility] CLIA [id number] [address] [place] [id number] [facility] HIGH SENSITIVITY TROPONIN T (THIRD) 3 HRS AFTER INITIALon 06-11-2024 Troponin T.cardiac High sensitivity method [Mass/Vol] 14 ng/L High <12 [facility] Comment on above: Order Comment: Speci men Type: BLOOD SPECIMEN Ordering Facility: [facility] Address: [address] [id number] Performed By: #### 2 4321-2, 98950-8, 43735-7 #### [facility] CLIA [id number] [address] [id number] [facility] HISTORY PHYSICALon HISTORY PHYSICAL HNO ID: [id number] Author: DON EDWARDS DO Service: Hospital Medicine Author Type: Physician Type: H&P Filed: 06/11/2024 14:14 Note Text: DEPARTMENT OF HOSPITAL MEDICINE HISTORY AND PHYSICAL EXAM SERVICE DATE: 06/11/2024 SERVICE TIME: 10:25 AM Primary Care Physician: Jared Evans MD, MD NIGHT AND WEEKEND COVERAGE: [facility] COVERAGE: From 7am - 7pm, please call [phone] After 7pm, please call cross cover pager #[phone] Subjective CHIEF COMPLAINT: dizziness with vomiting, slurred [...] Drains, and Airways Line Duration Peripheral 06/11/24 [facility] Left Antecubital 20 Gauge <1 day Drain Duration External Collection Device 06/11/24 0250 [facility] <1 day Reviewed lines and needs to be continued: REASONS: Telemetry DATA: Diagnostic tests reviewed for today's visit: Most recent lab (more content not included)... Normal [facility] MRA BRAIN WO IVCONon 024 MRA BRAIN WO IVCON * * *Final Report* * * DATE OF EXAM: Jun 11 2024 3:52PM [facility] 0272 - MRA BRAIN WO IVCON / PROCEDURE REASON: Neuro deficit, acute, stroke suspected * * * * Physician Interpretation * * * * EXAMINATION: MRI BRAIN WO IVCON, MRA BRAIN WO IVCON, MRA CAROTID WO IVCON CLINICAL HISTORY: Neuro deficit, acute, stroke suspected TECHNIQUE: Routine noncontrast MRI brain protocol including diffusion images. Intracranial and carotid 3D pweh-xb-saqqzp MRA. 3D maximum intensity projection images were [...] Patency: Bilateral Dominance: Left INTRACRANIAL MRA: The campo of [place] is patent without significant stenosis. 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 IMPRESSION: Motion degraded study. 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 No hemorrhagic transformation or significant mass effect. Unremarkable carotid MRA. 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 Cardiovascular Technician: DEVEN Transcribe Date/Time: Jun 11 2024 3:54P Dictated by : ESTHER MCKEON MD This examination was interpreted and the report reviewed and electronically signed by: ESTHER MCKEON MD on Jun 11 2024 4:13PM EST [id number] Normal [facility] MRA CAROTID WO IVCONon 06-11 MRA CAROTID WO IVCON * * *Final Report* * * DATE OF EXAM: Jun 11 2024 3:52PM [facility] 0275 - MRA CAROTID WO IVCON / PROCEDURE REASON: Neuro deficit, acute, stroke suspected * * * * Physician Interpretation * * * * EXAMINATION: MRI BRAIN WO IVCON, MRA BRAIN WO IVCON, MRA CAROTID WO IVCON CLINICAL HISTORY: Neuro deficit, acute, stroke suspected TECHNIQUE: Routine noncontrast MRI brain protocol including diffusion images. Intracranial and carotid 3D jyqq-ir-xvzids MRA. 3D maximum intensity projection images were [...] Patency: Bilateral Dominance: Left INTRACRANIAL MRA: The campo of [place] is patent without significant stenosis. 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 IMPRESSION: Motion degraded study. 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 No hemorrhagic transformation or significant mass effect. Unremarkable carotid MRA. 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 Cardiovascular Technician: DEVEN Transcribe Date/Time: Jun 11 2024 3:54P Dictated by : ESTHER MCKEON MD This examination was interpreted and the report reviewed and electronically signed by: ESTHER MCKEON MD on Jun 11 2024 4:13PM EST [id number] Normal [facility] MRI BRAIN WO IVCONon 024 MRI BRAIN WO IVCON * * *Final Report* * * DATE OF EXAM: Jun 11 2024 3:52PM [facility] 0294 - MRI BRAIN WO IVCON / PROCEDURE REASON: stroke * * * * Physician Interpretation * * * * EXAMINATION: MRI BRAIN WO IVCON, MRA BRAIN WO IVCON, MRA CAROTID WO IVCON CLINICAL HISTORY: Neuro deficit, acute, stroke suspected TECHNIQUE: Routine noncontrast MRI brain protocol including diffusion images. Intracranial and carotid 3D dshr-yx-qsajqa MRA. 3D maximum intensity projection images were [...] Patency: Bilateral Dominance: Left INTRACRANIAL MRA: The campo of [place] is patent without significant stenosis. 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 IMPRESSION: Motion degraded study. 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 No hemorrhagic transformation or significant mass effect. Unremarkable carotid MRA. 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 Cardiovascular Technician: DEVEN Transcribe Date/Time: Jun 11 2024 3:54P Dictated by : ESTHER MCKEON MD This examination was interpreted and the report reviewed and electronically signed by: ESTHER MCKEON MD on Jun 11 2024 4:13PM EST [id number] Normal [facility] PT panel Coag (PPP)on 2023 INR Coag (PPP) [Relative time] 1.2 {INR} Normal 0.9-1.3 [facility] Comment on above: Order Comment: Speci men Type: BLOOD SPECIMEN Ordering Facility: [facility] Address: [address] [place] [address] Result Comment: Mayra min K Antagonist (VKA) Therapeutic Range: INR 2 to 3 (Target INR of 2.5) Note: For patients treated with VKA drugs, such as warfarin, the [employer] 2012 Guideline recommends [...] 2012, 141:7S-47S Daren RA, et al. [facility] 2017, 70: 252-289 Performed By: #### 2 4321-2, 31979-3, #### [facility] CLIA [id number] [address] [place] PT Coag (PPP) [Time] 12.6 s Normal 9.7-13.0 [facility] Comment on above: Order Comment: Speci men Type: BLOOD SPECIMEN Ordering Facility: [facility] Address: [address] [place] [address] [place] [address] Performed By: #### 2 4321-2, 51403-5, #### [facility] CLIA [id number] [address] [place] THERAPY NTon 06-11-2024 THERAPY NT HNO ID: [id number] Author: BASILIA MAGALLANES, RUTH-SQUILGEER Service: Speech/Swallow Author Type: Speech Language Pathologist Type: Therapy (PT/OT/Speech/Resp) Filed: 06/11/2024 09:44 Note Text: Speech Therapy Clinical Swallow Evaluation SERVICE DATE: 06/11/2024 SERVICE TIME: 915 to 930 ROOM: [place] [address] IMPRESSION: Functional oropharyngeal phases of swallowing: without [...] Skilled Need Interventions Provided: Clinical Swallow Evaluation (79251) $ Clinical Swallow Evaluation (21955) Billed Units: 1 unit Training and Education [...] for this therapy evaluation/treatment. SIGNATURE: Basilia Magallanes CCC-SQUILGEER PATIENT NAME: Mel Castillo DATE: June 11, 2024 TIME: 9:39 AM Normal [facility] THERAPY NT HNO ID: [id number] Author: MEHREEN MANCERA, PT Service: Physical Therapy Author Type: Physical Therapist Type: Therapy (PT/OT/Speech/Resp) Filed: 06/11/2024 09:27 Note Text: Physical Therapy Evaluation Summary SERVICE DATE: 06/11/2024 SERVICE TIME: 804 to 841 ROOM: [place] [address] PT 6 Clicks Score: 18 DISCHARGE RECOMMENDATIONS [...] and signs-other TREATMENT INTERVENTIONS Evaluation, Canalith Repositioning (81832) Skilled Treatment Time (minutes): 37 $ Evaluation-Moderate (85047) Billed Units: 1 unit $ Canalith Repositioning (85056) Billed Units: 1 unit Repositioning maneuver for [...] due to blind L eye Positional Testing: Slovan-Hallpike, Left, Horizontal Canals, Left Eris-Hallpike, Left: Note: pt with vertigo pattern of L posterior canal when tested in horizontal canal postion. L torsional upbeating nystagmus (very brisk) Slovan-Hallpike, Right: Neg Horizontal Canals, Left: Pt with signs of L posterior canal BPPV in this postion Horizontal Canals, Right: neg GOALS Transfer Sit to/from Stand with: Supervision Ambulate with: Supervision Distance: 100' Device: Wheeled Walker Goal: Pt will not have c/o vertigo or signs of nystagmus with position testing Rehab Potential: Good PLAN PT Frequency: 3 Times (more content not included)... Normal [facility] Urinalysis complete panel (U )on 06-11-2024 Bilirubin Ql (U) Negative Normal Negative [facility] Comment on above: Order Comment: Speci men Type: URINE SPECIMENOrdering Facility: [facility] Address: [address] [place] [address] Performed By: #### 2 4356-8 ####[facility] [id number] [address] [place] Clarity (Unsp spec) Clear Normal Clear [facility] Comment on above: Order Comment: Speci men Type: URINE SPECIMENOrdering Facility: [facility] Address: [address] [place] [address] Performed By: #### 2 4356-8 ####[facility] [id number] [address] [place] [facility] Color (U) Light Yellow Normal yellow [facility] Comment on above: Order Comment: Speci men Type: URINE SPECIMENOrdering Facility: [facility] Address: [address] [place] [address] Performed By: #### 2 4356-8 ####[facility] [id number] [address] [place] Glucose Test strip (U) [Mass/Vol] Negative Normal Trace, Negative [facility] Comment on above: Order Comment: Speci men Type: URINE SPECIMENOrdering Facility: [facility] Address: [address] [place] [address] Performed By: #### 2 4356-8 ####[facility] [id number] [address] [place] Hemoglobin Ql (U) Trace Normal Negative, Trace [facility] Comment on above: Order Comment: Speci men Type: URINE SPECIMENOrdering Facility: [facility] Address: [address] [place] [address] Performed By: #### 2 4356-8 ####[facility]IA [id number] [address] STATES [place] [facility] Ketones Ql (U) Negative Normal Negative, Trace [facility] Comment on above: Order Comment: Speci men Type: URINE SPECIMENOrdering Facility: [facility] Address: [address] [place] [address] Performed By: #### 2 4356-8 ####[facility]IA [id number] [address] Leukocyte esterase Test strip Ql (U) Negative Normal Negative, 25 Jose Luis/uL [facility] Comment on above: Order Comment: Speci men Type: URINE SPECIMENOrdering Facility: [facility] Address: [address] [place] [address] Performed By: #### 2 4356-8 ####[facility]IA [id number] [address] Nitrite Ql (U) Negative Normal Negative [facility] Comment on above: Order Comment: Speci men Type: URINE SPECIMENOrdering Facility: [facility] Address: [address] [place] [address] Performed By: #### 2 4356-8 ####[facility]IA [id number] [address] [place] pH (U) [pH] High 5.0-8.0 [facility] Comment on above: Order Comment: Speci men Type: URINE SPECIMENOrdering Facility: [facility] Address: [address] [place] [address] Performed By: #### 2 4356-8 ####[facility]IA [id number] [address] [place] Protein (U) [Mass/Vol] 1+ Abnormal Trace , Negative [facility] Comment on above: Order Comment: Speci men Type: URINE SPECIMENOrdering Facility: [facility] Address: [address] [place] [address] Performed By: #### 2 4356-8 ####[facility]ORYCLIA [id number] [address] [place] RBC LM.HPF (Urine sed) [#/Area] 6-10 /HPF Abnormal 0-3 /HPF [facility] Comment on above: Order Comment: Speci men Type: URINE SPECIMENOrdering Facility: [facility] Address: [address] [place] [address] Performed By: #### 2 4356-8 ####[facility]ORYCLIA [id number] [address] Specific gravity (U) [Rel density] 1.039 High 1.005-1.030 [facility] Comment on above: Order Comment: Speci men Type: URINE SPECIMENOrdering Facility: [facility] Address: [address] [place] [address] Performed By: #### 2 4356-8 ####[facility] [id number] [address] Urobilinogen Ql (U) Normal Normal Normal [facility] Comment on above: Order Comment: Speci men Type: URINE SPECIMENOrdering Facility: [facility] Address: [address] [place] [address] Performed By: #### 2 4356-8 ####[facility]ORYCLIA [id number] [address] [place] WBC LM.HPF (Urine sed) [#/Area] 0-5 /HPF Normal 0-5 /HPF [facility] Comment on above: Order Comment: Speci men Type: URINE SPECIMENOrdering Facility: [facility] Address: [address] [place] [address] Performed By: #### 2 4356-8 ####[facility]ORYCLIA [id number] [address] aPTT PPPon 06-11-2024 aPTT Coag (PPP) [Time] 28.2 s Normal 23.0-32.4 [facility] Comment on above: Order Comment: Speci men Type: BLOOD SPECIMENOrdering Facility: [facility] Address: [address] [place] [address] Performed By: #### 1 4979-9 ####[facility]ORYCLIA [id number] [address] aPTT Coag (PPP) [Time] 28.9 s Normal 23.0-32.4 [facility] Comment on above: Order Comment: Speci men Type: BLOOD SPECIMEN Ordering Facility: [facility] Address: [address] [place] [address] Performed By: #### 2 4321-2, 37597-2, #### [facility] CLIA [id number] [address] CBC W Auto Differential pane l (Bld)on 06-10-2024 Basophils (Bld) [#/Vol] 0.04 10*3/uL Normal <0.11 [facility] Comment on above: Order Comment: Speci men Type: BLOOD SPECIMEN Ordering Facility: [facility] Address: [address] [place] [address] Performed By: #### 2 4321-2, 08943-1, #### [facility] CLIA [id number] [address] Basophils/100 WBC (Bld) 0.7 % Normal A [facility] Comment on above: Order Comment: Speci men Type: BLOOD SPECIMEN Ordering Facility: [facility] Address: [address] [place] [address] Performed By: #### 2 4321-2, 14887-0, #### [facility] CLIA [id number] [address] Differential cell count method Nom (Bld) Auto Normal [facility] Comment on above: Order Comment: Speci men Type: BLOOD SPECIMEN Ordering Facility: [facility] Address: [address] [place] [address] Performed By: #### 2 4321-2, 59054-0, #### [facility] CLIA [id number] [address] [place] Eosinophils (Bld) [#/Vol] 10*3/uL Normal <0.46 [facility] Comment on above: Order Comment: Speci men Type: BLOOD SPECIMEN Ordering Facility: [facility] Address: [address] [place] [address] Performed By: #### 2 1-2, 59721-7, #### [facility] CLIA [id number] [address] [place] Eosinophils/100 WBC (Bld) 0.2 % Normal [facility] Comment on above: Order Comment: Speci men Type: BLOOD SPECIMEN Ordering Facility: [facility] Address: [address] [place] [address] Performed By: #### 2 4320-2, 95209-3, #### [facility] CLIA [id number] [address] [place] Erythrocyte distribution width (RBC) [Ratio] 15.6 % High 11.5-15.0 [facility] Comment on above: Order Comment: Speci men Type: BLOOD SPECIMEN Ordering Facility: [facility] Address: [address] [place] [address] Performed By: #### 2 4320-2, 30657-4, #### [facility] CLIA [id number] [address] [place] Hematocrit (Bld) [Volume fraction] 37.5 % Normal 36.0-46.0 [facility] Comment on above: Order Comment: Speci men Type: BLOOD SPECIMEN Ordering Facility: [facility] Address: [address] [place] [address] Performed By: #### 2 4321-2, 13226-2, #### [facility] CLIA [id number] [address] [place] Hemoglobin (Bld) [Mass/Vol] 11.4 g/dL Low 11.5-15.5 [facility] Comment on above: Order Comment: Speci men Type: BLOOD SPECIMEN Ordering Facility: [facility] Address: [address] [place] [address] Performed By: #### 2 4321-2, 18250-8, #### [facility] CLIA [id number] [address] [place] [address] [place] Immature granulocytes (Bld) [#/Vol] 10*3/uL Normal <0.10 [facility] Comment on above: Order Comment: Speci men Type: BLOOD SPECIMEN Ordering Facility: [facility] Address: [address] [place] [address] Performed By: #### 2 4321-2, 97141-2, #### [facility] CLIA [id number] [address] [place] Immature granulocytes/100 WBC (Bld) 0.4 % Normal [facility] Comment on above: Order Comment: Speci men Type: BLOOD SPECIMEN Ordering Facility: [facility] Address: [address] [place] [address] Performed By: #### 2 1-2, 24692-0, #### [facility] CLIA [id number] [address] [place] [address] [place] Lymphocytes (Bld) [#/Vol] 0.61 10*3/uL Low 1.00-4.00 [facility] Comment on above: Order Comment: Speci men Type: BLOOD SPECIMEN Ordering Facility: [facility] Address: [address] [place] [address] Performed By: #### 2 4321-2, 52805-7, #### [facility] CLIA [id number] [address] [place] Lymphocytes/100 WBC (Bld) 10.8 % Normal [facility] Comment on above: Order Comment: Speci men Type: BLOOD SPECIMEN Ordering Facility: [facility] Address: [address] [place] [address] Performed By: #### 2 4321-2, 56603-0, #### [facility] CLIA [id number] [address] MCH (RBC) [Entitic mass] 26.2 pg Normal 26.0-34.0 [facility] Comment on above: Order Comment: Speci men Type: BLOOD SPECIMEN Ordering Facility: [facility] Address: [address] [place] [address] Performed By: #### 2 1-2, 01230-9, #### [facility] CLIA [id number] [address] MCHC (RBC) [Mass/Vol] 30.4 g/dL Low 30.5-36.0 [facility] Comment on above: Order Comment: Speci men Type: BLOOD SPECIMEN Ordering Facility: [facility] Address: [address] [place] [address] Performed By: #### 2 4320-2, 28984-6, #### [facility] CLIA [id number] [address] MCV (RBC) [Entitic vol] 86.2 fL Normal 80.0-100.0 [facility] Comment on above: Order Comment: Speci men Type: BLOOD SPECIMEN Ordering Facility: [facility] Address: [address] [place] [address] Performed By: #### 2 4320-2, 59860-6, #### [facility] CLIA [id number] [address] Monocytes (Bld) [#/Vol] 0.21 10*3/uL Normal <0.87 [facility] Comment on above: Order Comment: Speci men Type: BLOOD SPECIMEN Ordering Facility: [facility] Address: [address] [place] [address] Performed By: #### 2 1-2, 78574-2, #### [facility] CLIA [id number] [address] [place] [address] [place] Monocytes/100 WBC (Bld) 3.7 % Normal A [facility] Comment on above: Order Comment: Speci men Type: BLOOD SPECIMEN Ordering Facility: [facility] Address: [address] [place] [address] Performed By: #### 2 4321-2, 77036-8, #### [facility] CLIA [id number] [address] [place] [address] [place] Neutrophils (Bld) [#/Vol] 4.78 10*3/uL Normal 1.45-7.50 [facility] Comment on above: Order Comment: Speci men Type: BLOOD SPECIMEN Ordering Facility: [facility] Address: [address] [place] [address] Performed By: #### 2 4321-2, 86411-8, #### [facility] CLIA [id number] [address] [place] Neutrophils/100 WBC (Bld) 84.2 % Normal [facility] Comment on above: Order Comment: Speci men Type: BLOOD SPECIMEN Ordering Facility: [facility] Address: [address] [place] [address] Performed By: #### 2 4321-2, 06150-9, #### [facility] CLIA [id number] [address] [place] [address] [place] Nucleated RBC (Bld) [#/Vol] 10*3/uL Normal <0.01 [facility] Comment on above: Order Comment: Speci men Type: BLOOD SPECIMEN Ordering Facility: [facility] Address: [address] [place] [address] Performed By: #### 2 4321-2, 66458-8, #### [facility] CLIA [id number] [address] [place] [address] [place] Nucleated RBC/100 WBC (Bld) [Ratio] 0.0 /100 WBC Normal [facility] Comment on above: Order Comment: Speci men Type: BLOOD SPECIMEN Ordering Facility: [facility] Address: [address] [place] [address] Performed By: #### 2 4321-2, 12370-2, #### [facility] CLIA [id number] [address] [place] Platelet mean volume (Bld) [Entitic vol] 9.4 fL Normal 9.0-12.7 [facility] Comment on above: Order Comment: Speci men Type: BLOOD SPECIMEN Ordering Facility: [facility] Address: [address] [place] [address] Performed By: #### 2 4321-2, 77382-7, #### [facility] CLIA [id number] [address] [place] Platelets (Bld) [#/Vol] 330 10*3/uL Normal 150-400 [facility] Comment on above: Order Comment: Speci men Type: BLOOD SPECIMEN Ordering Facility: [facility] Address: [address] [place] [address] Performed By: #### 2 1-2, 96160-7, #### [facility] CLIA [id number] [address] [place] RBC (Bld) [#/Vol] 4.35 10*6/uL Normal 3.90-5.20 [facility] Comment on above: Order Comment: Speci men Type: BLOOD SPECIMEN Ordering Facility: [facility] Address: [address] [place] [address] Performed By: #### 2 4321-2, 54423-0, #### [facility] CLIA [id number] [address] [place] [address] [place] WBC (Bld) [#/Vol] 5.67 10*3/uL Normal 3.70-11.00 [facility] Comment on above: Order Comment: Speci men Type: BLOOD SPECIMEN Ordering Facility: [facility] Address: [address] [place] [address] Performed By: #### 2 4321-2, 46578-4, 48472-4 #### [facility] CLIA [id number] [address] Comprehensive metabolic 2000 panelon 06-10-2024 Albumin [Mass/Vol] 4.2 g/dL Normal 3.9-4.9 [facility] Comment on above: Order Comment: Speci men Type: BLOOD SPECIMENOrdering Facility: [facility] Address: [address] [place] [address] Performed By: #### 3 016-3, 49726-4, 3023-7, 28725-8 ####[facility] [id number] [address] STATES [place] [facility] ALP [Catalytic activity/Vol] 99 U/L Normal 34-123 [facility] Comment on above: Order Comment: Speci men Type: BLOOD SPECIMENOrdering Facility: [facility] Address: [address] [place] [address] Performed By: #### 3 016-3, 16683-0, 3023-7, 35999-6 ####[facility] [id number] [address] [place] [facility] ALT With P-5'-P [Catalytic activity/Vol] 8 U/L Normal 7-38 [facility] Comment on above: Order Comment: Speci men Type: BLOOD SPECIMENOrdering Facility: [facility] Address: [address] [place] [address] Performed By: #### 3 016-3, 71454-7, 3023-7, 84433-0 ####[facility]IA [id number] [address] [place] [facility] Anion gap [Moles/Vol] 12 mmol/L Normal 8-15 [facility] Comment on above: Order Comment: Speci men Type: BLOOD SPECIMENOrdering Facility: [facility] Address: [address] [place] [address] Performed By: #### 3 016-3, 65664-9, 3023-7, 33964-1 ####[facility] LABORATORYCLIA [id number] [place] [address] [place] AST With P-5'-P [Catalytic activity/Vol] 12 U/L Low 13-35 [facility] Comment on above: Order Comment: Speci men Type: BLOOD SPECIMENOrdering Facility: [facility] Address: [address] [place] [address] Performed By: #### 3 016-3, 82982-2, 7, 14210-9 ####[facility] LABORATORYCLIA [id number] [place] [address] [place] Bilirubin [Mass/Vol] 0.4 mg/dL Normal 0.2-1.3 [facility] Comment on above: Order Comment: Speci men Type: BLOOD SPECIMENOrdering Facility: [facility] Address: [address] [place] [address] Performed By: #### 3 016-3, 01006-5, 7, 63506-2 ####[facility]ITALCL[facility] [id number] [address] [place] Calcium [Mass/Vol] 9.5 mg/dL Normal 8.5-10.2 [facility] Comment on above: Order Comment: Speci men Type: BLOOD SPECIMENOrdering Facility: [facility] Address: [address] [place] [address] Performed By: #### 3 016-3, 08686-5, 7, 00735-7 ####[facility] LAB[facility]ATORYCLIA [id number] [place] [address] [place] Chloride [Moles/Vol] 101 mmol/L Normal 98-107 [facility] Comment on above: Order Comment: Speci men Type: BLOOD SPECIMENOrdering Facility: [facility] Address: [address] [place] [address] Performed By: #### 3 016-3, 05550-2, 7, 17154-7 ####[facility] LABORATORYCLIA [id number] [place] [id number] [place] CO2 [Moles/Vol] 23 mmol/L Normal 22-30 [facility] Comment on above: Order Comment: Rhina mason Type: BLOOD SPECIMENOrdering Facility: [facility] Address: [address] [place] [address] Performed By: #### 3 016-3, 33959-1, 3024-7, 40459-1 ####[facility] LABORATORYCLIA [id number] [place] [address] [place] Creatinine [Mass/Vol] 0.87 mg/dL Normal 0.58-0.96 [facility] Comment on above: Order Comment: Rhina mason Type: BLOOD SPECIMENOrdering Facility: [facility] Address: [address] [place] [address] Performed By: #### 3 016-3, 31151-2, 302-7, 22094-0 ####[facility]ITALCLIA [id number] [address] Creatinine and Glomerular filtration rate.predicted panel (S/P/Bld) 66 mL/min/1.73m??? Normal >=60 [facility] Comment on above: Order Comment: Rhina mason Type: BLOOD SPECIMENOrdering Facility: [facility] Address: [address] [place] [address] Result Comment: Isa mated Glomerular Filtration Rate [...] actual GFR. Performed By: #### 3 016-3, 83169-0, 3024-7, 88117-4 ####[facility] LABORATORYCLIA [id number] [place] [address] [place] Glucose [Mass/Vol] 157 mg/dL High 74-99 [facility] Comment on above: Order Comment: Rhina mason Type: BLOOD SPECIMENOrdering Facility: [facility] Address: [address] [place] [address] Result Comment: The [place] Diabetes Association (ADA) provides guidance for cutoff [...] Standards of Medical Care in Diabetes 2016, [place] Diabetes Association. Diabetes Care. 2016.39(Suppl 1). Performed By: #### 3 016-3, 64022-0, 3024-7, 69521-4 ####[facility] LABORATORYCLIA [id number] [place] [address] [place] Potassium [Moles/Vol] 4.3 mmol/L Normal 3.7-5.1 [facility] Comment on above: Order Comment: Speci men Type: BLOOD SPECIMENOrdering Facility: [facility] Address: [address] [place] [address] Performed By: #### 3 016-3, 91134-6, 3024-7, 61021-8 ####[facility]ATORYCLIA [id number] [place] [address] [place] Protein [Mass/Vol] 7.1 g/dL Normal 6.3-8.0 [facility] Comment on above: Order Comment: Speci men Type: BLOOD SPECIMENOrdering Facility: [facility] Address: [address] [place] [address] Performed By: #### 3 016-3, 88963-6, 7, 70722-7 ####[facility]ATORYCLIA [id number] [place] [address] [place] Sodium [Moles/Vol] 136 mmol/L Normal 136-144 [facility] Comment on above: Order Comment: Speci men Type: BLOOD SPECIMENOrdering Facility: [facility] Address: [address] [place] [id number] Performed By: #### 3 016-3, 90657-3, 3024-7, 36894-9 ####[facility]ORATORYCLIA [id number] [place] [id number] [facility] Urea nitrogen [Mass/Vol] 14 mg/dL Normal 7-21 [facility] Comment on above: Order Comment: Speci men Type: BLOOD SPECIMENOrdering Facility: [facility] Address: [address] [place] [id number] Performed By: #### 3 016-3, 94188-1, 3024-7, 19309-2 ####[facility] LABORATORYCLIA [id number] [address] [facility] ECG COMPLETEon 06-10-2024 ECG COMPLETE Ventricular Rate : 6 4 BPM QRS Duration : 90 ms Q-T Interval : 424 ms QTC Calculation(Bazett) : 437 ms Calculated R [place] : 56 degrees Calculated T [place] : 20 degrees ATRIAL FIBRILLATION ABNORMAL ECG NO PREVIOUS ECGS AVAILABLE Confirmed by SAKINA MELLO MD ([id number]) on 12/07/2024 10:44:28 PM NAME : MEL GUADARRAMA PID : [id number] : 1940 Gender : Female Race : ORD : [id number] Procedure Date : Jun 10 2024 23:35:14 Edit Date : Dec 07 2024 22:44:32 Diagnosis: ATRIAL FIBRILLATION ABNORMAL ECG NO PREVIOUS ECGS AVAILABLE Confirmed by SAKINA MELLO MD ([id number]) on 12/07/2024 10:44:28 PM Test Reason : Chest Pain Location : 4 : AKED EM Overread By : SAKINA MELLO MD Edited By : SAKINA MELLO MD Referred By : , Acquired by : REGAN RODRIGES [facility] ED NOTEon 06-10-2024 ED NOTE HNO ID: [id number] Author: DAMARIS HERNANDEZ RN Service: ? Author Type: Registered Nurse Type: ED Notes Filed: 06/10/2024 23:06 Note Text: Bed: 36-ED Expected date: Expected time: Means of arrival: Comments: RAMESH Barrett [facility] ED PROV NOTEon 06-10-2024 ED PROV NOTE HNO ID: [id number] Author: THOMAS SERNA MD Service: Emergency Medicine [...] nausea vomiting. THOMAS SERNA 06/11/24 0519 Normal [facility] ED PROV NOTE HNO ID: [id number] Author: THOMAS SERNA MD Service: Emergency Medicine [...] Labs Ord (more content not included)... Normal [facility] HIGH SENSITIVITY TROPONIN T (INITIAL)on 06-10-2024 Troponin T.cardiac High sensitivity method [Mass/Vol] 14 ng/L High <12 [facility] Comment on above: Order Comment: Rhina mason Type: BLOOD SPECIMENOrdering Facility: [facility] Address: [address] [place] [id number] Performed By: #### L [id number] ####[facility] LABORATORYCLIA [id number] [place] [address] [place] HbA1c (Bld)on 06-10-2024 Average glucose Estimated from glycated hemoglobin (Bld) [Mass/Vol] 120 mg/dL Normal [facility] Comment on above: Order Comment: Rhina mason Type: BLOOD SPECIMEN [facility] Address: [address] [place] [address] Result Comment: eAG: (Estimated average glucose) is a calculated value from HgbA1c and is packaging sales representative of the average blood glucose level in the last 2-3 month period. Performed By: #### 2 4321-2, 07212-0, #### [facility] CLIA [id number] [address] [facility] HbA1c (Bld) [Mass fraction] 5.8 % High 4.3-5.6 [facility] Comment on above: Order Comment: Rhina mason Type: BLOOD SPECIMEN [facility] Address: [address] [place] [address] Result Comment: [facility] Diabetes Association guidelines indicate that patients with HgbA1c in the range 5.7-6.4% are at increased risk for development of diabetes, and intervention by lifestyle modification may be beneficial. HgbA1c greater or equal to 6.5% is considered diagnostic of diabetes. Performed By: #### 2 4321-2, 82172-2, #### [facility] CLIA [id number] [address] [facility] Lipid 1996 panelon 4 Cholesterol [Mass/Vol] 227 mg/dL High <200 [facility] Comment on above: Order Comment: Rhina mason Type: BLOOD SPECIMENOrdering Facility: [facility] Address: [address] [place] [address] Result Comment: <200 mg/dL, Desirable 200-239 mg/dL, Borderline high >239 mg/dL, High Performed By: #### 3 016-3, 21461-8, 3024-7, 65639-2 ####[facility]ORATORYCLIA [id number] [address] [place] Cholesterol in HDL [Mass/Vol] 78 mg/dL Normal >39 [facility] Comment on above: Order Comment: Rhina mason Type: BLOOD SPECIMENOrdering Facility: [facility] Address: [address] [place] [address] Result Comment: 40-5 9 mg/dL, Acceptable >59 mg/dL, High: Negative risk factor for coronary heart disease <40 mg/dL, Low: Positive risk factor for coronary heart disease Performed By: #### 3 016-3, 66204-4, 4-7, 21046-7 ####[facility]ORATORYCLIA [id number] [place] [address] [place] [facility] Cholesterol in LDL [Mass/Vol] 139 mg/dL High <100 [facility] Comment on above: Order Comment: Speci men Type: BLOOD SPECIMENOrdering Facility: [facility] Address: [address] [place] [address] Result Comment: <100 mg/dL, Optimal 100-129 mg/dL, Near optimal/above optimal 130-159 mg/dL, Borderline high 160-189 mg/dL, High >189 mg/dL, Very high Secondary prevention optimal LDL Cholesterol levels are recommended to be < 70 mg/dL Performed By: #### 3 016-3, 00598-6, 3023-7, 11603-9 ####[facility]ORATORYCLIA [id number] [address] Cholesterol in LDL/Cholesterol in HDL [Mass ratio] 1.78 {ratio} Normal <2.54 [facility] Comment on above: Order Comment: Speci men Type: BLOOD SPECIMENOrdering Facility: [facility] Address: [address] [place] [address] Result Comment: Brii nath: 1. National Cholesterol Education Program ATP III Guideline At-A-Glance Quick Desk Reference: National Heart, Lung, and Blood [place]. National Institutes of Health. 2001: NIH Publication No. 01-3305. 2. An International Atherosclerosis Society position paper: global recommendations for the management of dyslipidemia: executive summary, Atherosclerosis. 2014: 232(2):410-413. Performed By: #### 3 016-3, 34943-5, 302-7, 58797-7 ####[facility]ORATORYCLIA [id number] [place] [id number] [place] [facility] Cholesterol in VLDL [Mass/Vol] 10 mg/dL Normal <30 [facility] Comment on above: Order Comment: Speci men Type: BLOOD SPECIMENOrdering Facility: [facility] Address: [address], [place] [address] Performed By: #### 3 016-3, 33108-0, 3024-01, 83742-1 ####[facility]ATORYCLIA [id number] [address] [place] Cholesterol non HDL [Mass/Vol] 149 mg/dL High <130 [facility] Comment on above: Order Comment: Speci men Type: BLOOD SPECIMENOrdering Facility: [facility] Address: [address] [place] [address] Result Comment: <130 mg/dL, Optimal 130-159 mg/dL, Near optimal/above optimal 160-189 mg/dL, Borderline high 190-219 mg/dL, High >219 mg/dL, Very high Secondary prevention optimal non HDL Cholesterol levels are recommended to be <100 mg/dL Performed By: #### 3 016-3, 42609-4, 3024-01, 02672-4 ####[facility]ORATORYCLIA [id number] [address] Cholesterol.total/Pastora sterol in HDL [Mass ratio] 2.91 {ratio} Normal <5.10 [facility] Comment on above: Order Comment: Speci men Type: BLOOD SPECIMENOrdering Facility: [facility] Address: [address] [place] [address] Performed By: #### 3 016-3, 95607-6, 3024-01, ####[facility] LABORATORYCLIA [id number] [address] [place] FASTING TIME Normal [facility] Comment on above: Order Comment: Speci men Type: BLOOD SPECIMENOrdering Facility: [facility] Address: [address] [place] [address] Result Comment: Unkn own Performed By: #### 3 016-3, 74654-2, 3024-01, 35814-1 ####[facility]ATORYCLIA [id number] [address] [place] Triglyceride [Mass/Vol] 49 mg/dL Normal <150 [facility] Comment on above: Order Comment: Speci men Type: BLOOD SPECIMENOrdering Facility: [facility] Address: [address] [place] [address] Result Comment: <150 mg/dL, Normal 150-199 mg/dL, Borderline high 200-499 mg/dL, High >499 mg/dL, Very high Performed By: #### 3 016-3, 15601-3, 3024-7, 42216-3 ####[facility] LABORATORYCLIA [id number] [place] [id number] [facility] PT panel Coag (PPP)on 2023 INR Coag (PPP) [Relative time] 1.3 {INR} Normal 0.9-1.3 [facility] Comment on above: Order Comment: Specrobson mason Type: BLOOD SPECIMENOrdering Facility: [facility] Address: [address] [place] [address] Result Comment: Mayra min K Antagonist (VKA) Therapeutic Range: INR 2 to 3 (Target INR of 2.5) Note: For patients treated with VKA drugs, such as warfarin, the [place] College [employer] 2012 Guideline recommends [...] 2012, 141:7S-47S Daren RA, et al. [facility] 2017, 70: 252-289 Performed By: #### 3 4528-0 ####[facility] LABORATORYCLIA [id number] [place] [id number] [place] PT Coag (PPP) [Time] 13.2 s High 9.7-13.0 [facility] Comment on above: Order Comment: Speci men Type: BLOOD SPECIMENOrdering Facility: [facility] Address: [address] [place] [address] Performed By: #### 3 4528-0 ####[facility] LABORATORYCLIA [id number] [address] T4 Free SerPl-mCncon 024 Free T4 [Mass/Vol] 1.3 ng/dL Normal 0.9-1.7 [facility] Comment on above: Order Comment: Speci men Type: BLOOD SPECIMENOrdering Facility: [facility] Address: [address] [place] [address] Performed By: #### 3 016-3, 29396-9, 3024-7, 09953-8 ####[facility]ATORYCLIA [id number] [address] TSH SerPl-aCncon 06-10-2024 TSH Qn 1.620 m[IU]/L Normal 0.270-4.200 [facility] Comment on above: Order Comment: Speci men Type: BLOOD SPECIMENOrdering Facility: [facility] Address: [address] [place] [address] Performed By: #### 3 016-3, 42404-6, 3024-7, 15913-1 ####[facility] LABORATORYCLIA [id number] [address] [facility] 36on 06-04-2024 36 Normal [facility] 36on 06-01-2024 36 Normal [facility] Progress Noteon 05-22-2024 Progress Note Normal [facility] PT Coag (Bld) [Time]on 05-21 INR Coag (PPP) [Relative time] 2.8 {INR} Abnormal 0.9 - 1.1 [facility] Interpretation and review of laboratory results Abnormal [facility] Progress Noteon 05-21-2024 Progress Note Normal [facility] Progress Note INR reported on b y Christin with [facility]. Christin can be reached at [phone] with questions. Normal [facility] Protime-INRon 05-21-2024 PT Coag (Bld) [Time] 33.9 s Abnormal 9.0 - 12.0 [facility] Heart TransthoracicOrdere d By: Davian Landrum on 05-14-2024 Ao Root Index 1.63 cm/m2 [facility] Work Phone: Aortic Arch 2.6 cm [facility] Work Phone: Aortic Root 2.8 cm [facility] Work Phone: Aortic Sinus Valsalva 2.8 cm [facility] Work Phone: Aortic Sinus Valsalva Index 1.63 cm/m2 [facility] Work Phone: Ascending Aorta 2.7 cm [facility] Work Phone: Ascending Aorta Index 1.57 cm/m2 [facility] Work Phone: AV Area by Peak Velocity 1.4 cm2 [facility] Work Phone: AV Area by VTI 1.4 cm2 [facility] Work Phone: AV Mean Gradient 3 mmHg [facility] Work Phone: AV Mean Velocity 0.9 m/s [facility] Work Phone: AV Peak Gradient 7 mmHg [facility] Work Phone: AV Peak Velocity 1.3 m/s [facility] Work Phone: AV Velocity Ratio 0.62 [facility] Work Phone: AV VTI 30 cm [facility] Work Phone: POLA/BSA Peak Velocity 0.8 cm2/m2 [facility] Work Phone: POLA/BSA VTI 0.8 cm2/m2 [facility] Work Phone: E/E' Lateral 14 [facility] Work Phone: E/E' Ratio (Averaged) 18 [facility] Work Phone: E/E' Septal 22 [facility] Work Phone: EF BP 61 % 55 - 100 % [facility] Work Phone: Est. RA Pressure 3 mmHg [facility] Work Phone: [phone] Fractional Shortening 2D 30 % 28 - 44 % [facility] Work Phone: Global Longitudinal Strain -15.3 % [facility] Work Phone: Interpretation and review of laboratory results Abnormal [facility] Work Phone: [phone] IVC Diameter 1.8 cm [facility] Work Phone: [phone] IVSd 1 cm Abnormal 0.6 - 0.9 cm [facility] Work Phone: LA Diameter 4.1 cm [facility] Work Phone: LA Size Index 2.38 cm/m2 [facility] Work Phone: LA Volume 2C 63 mL Abnormal 22 - 52 mL [facility] Work Phone: LA Volume 4C 80 mL Abnormal 22 - 52 mL [facility] Work Phone: [phone] LA Volume A/L 76 mL [facility] Work Phone: LA Volume BP 72 mL Abnormal 22 - 52 mL [facility] Work Phone: LA Volume Index 2C 37 mL/m2 Abnormal 16 - 34 mL/m2 [facility] Work Phone: LA Volume Index 4C 47 mL/m2 Abnormal 16 - 34 mL/m2 [facility] Work Phone: [phone] LA Volume Index A/L 44 mL/m2 16 - 34 mL/m2 [facility] Work Phone: LA Volume Index BP 42 ml/m2 Abnormal 16 - 34 ml/m2 [facility] Work Phone: LA/AO Root Ratio 1.46 [facility] Work Phone: LV E' Lateral Velocity 11 cm/s [facility] Work Phone: [phone] LV E' Septal Velocity 7 cm/s [facility] Work Phone: [phone] LV EDV A2C 45 mL [facility] [employer] Work Phone: LV EDV A4C 48 mL [facility] Work Phone: LV EDV BP 47 mL Abnormal 56 - 104 mL [facility] Work Phone: LV EDV Index A2C 26 mL/m2 [facility] Work Phone: LV EDV Index A4C 28 mL/m2 [facility] Work Phone: LV EDV Index BP 27 mL/m2 [facility] Work Phone: LV Ejection Fraction A2C 68 % [facility] Work Phone: LV Ejection Fraction A4C 55 % [facility] Work Phone: LV ESV A2C 14 mL [facility] Work Phone: LV ESV A4C 21 mL [facility] Work Phone: LV ESV BP 18 mL Abnormal 19 - 49 mL [facility] Work Phone: LV ESV Index A2C 8 mL/m2 [facility] Work Phone: LV ESV Index A4C 12 mL/m2 [facility] Work Phone: LV ESV Index BP 10 mL/m2 [facility] Work Phone: LV Mass 2D 142.5 g 67 - 162 g [facility] Work Phone: LV Mass 2D Index 82.8 g/m2 43 - 95 g/m2 [facility] Work Phone: LV RWT Ratio 0.47 [facility] Work Phone: LVIDd 4.3 cm 3.9 - 5.3 cm [facility] Work Phone: LVIDd Index 2.5 cm/m2 [facility] Work Phone: LVIDs 3 cm [facility] Work Phone: LVIDs Index 1.74 cm/m2 [facility] Work Phone: LVOT Area 2.5 cm2 [facility] Work Phone: LVOT Cardiac Output 3.2 liter/mi nut e [facility] Work Phone: LVOT Diameter 1.8 cm [facility] Work Phone: LVOT Mean Gradient 1 mmHg [facility] Work Phone: LVOT Peak Gradient 2 mmHg [facility] Work Phone: LVOT Peak Velocity 0.8 m/s [facility] Work Phone: LVOT Stroke Volume Index 25.1 mL/m2 [facility] Work Phone: LVOT SV 43.2 ml [facility] Work Phone: LVOT VTI 17 cm [facility] Work Phone: LVOT:AV VTI Index 0.57 [facility] Work Phone: LVPWd 1 cm Abnormal 0.6 - 0.9 cm [facility] Work Phone: [phone] MV A Velocity 0.41 m/s [facility] Work Phone: MV Area by PHT 3.3 cm2 [facility] Work Phone: MV Area by VTI 1.2 cm2 [facility] Work Phone: MV E Velocity 1.54 m/s [facility] Work Phone: MV E Wave Deceleration Time 180.9 ms [facility] Work Phone: MV E/A 3.76 [facility] Work Phone: MV Max Velocity 1.7 m/s [facility] Work Phone: MV Mean Gradient 4 mmHg [facility] Work Phone: MV Mean Velocity 0.9 m/s [facility] Work Phone: MV Peak Gradient 11 mmHg [facility] Work Phone: MV PHT 66.9 ms [facility] Work Phone: MV VTI 35.1 cm [facility] Work Phone: MV:LVOT VTI Index 2.06 [facility] Work Phone: RA Area 4C 55.1 mL [facility] Work Phone: [phone] RV Basal Dimension 2.7 cm [facility] Work Phone: [phone] RV Free Wall Peak S' 11 cm/s [facility] Work Phone: [phone] RV Longitudinal Dimension 4.9 cm [facility] Work Phone: [phone] RV Mid Dimension 2.1 cm [facility] alth Work Phone: [phone] RVSP 54 mmHg [facility] Work Phone: Sinotubular Junction 2.7 cm [facility] Work Phone: [phone] TAPSE 1.5 cm Abnormal 1.7 cm [facility] Work Phone: TR Max Velocity 3.56 m/s [facility] Work Phone: [phone] TR Peak Gradient 51 mmHg [facility] alth Work Phone: [phone] TR Peak Velocity PISA 3.6 m/s [facility] Work Phone: TR VTI 120.8 cm [facility] Work Phone: [phone] TV EROA 0.2 cm2 [facility] Work Phone: TV Nyquist Velocity 39 cm/s [facility] Work Phone: [phone] [facility] Work Phone: [phone] Heart Transthoracicon There is a 1.3 [...] Progress Noteon 05-09-2024 Progress Note Graciela from [facility] call ed in results. Normal [facility] Progress Note Normal [facility] Protime-INRon 05-09-2024 PT Coag (Bld) [Time] 32.1 s Abnormal 9.0 - 12.0 [facility] PT Coag (Bld) [Time]on 05-01 INR Coag (PPP) [Relative time] 2.7 {INR} Abnormal 0.9 - 1.1 [facility] Interpretation and review of laboratory results Abnormal [facility] Progress Noteon 05-01-2024 Progress Note Normal [facility] Progress Note Tia- [facility]- [phone] Normal [facility] Protime-INRon 05-01-2024 PT Coag (Bld) [Time] 32.4 s Abnormal 9.0 - 12.0 [facility] 36on 04-27-2024 36 Pt requested refill on warfarin 5mg. Sent to [facility]. Receipt confirmed by pharmacy. Normal [facility] Progress Noteon 04-27-2024 Progress Note Normal [facility] Progress Note Tia- [facility]- [phone] Normal [facility] Progress Noteon 04-25-2024 Progress Note Normal [facility] Progress Noteon 04-23-2024 Progress Note Normal [facility] Progress Note [facility] called any questions or concerns [phone]. Normal [facility] PT Coag (Bld) [Time]on 04-19 INR Coag (PPP) [Relative time] 2.1 {INR} Abnormal 0.9 - 1.1 [facility] Interpretation and review of laboratory results Abnormal [facility] Progress Noteon 04-19-2024 Progress Note Normal [facility] Progress Note Graciela with [facility] repo rts INR on Graciela can be reached at [phone] with any questions. Normal [facility] [facility] Protime-INRon 04-19-2024 PT Coag (Bld) [Time] 24.9 s Abnormal 9.0 - 12.0 [facility] Progress Noteon 04-16-2024 Progress Note [facility]- [facility]- [phone] Normal [facility] Progress Note Normal [facility] Progress Noteon 04-14-2024 Progress Note Placed new order for POCT INR, [facility] had not received. Normal [facility] [id number] 04-13-2024 [id number] Normal [facility] APTTon 04-13-2024 aPTT Coag (Bld) [Time] 132.2 s Critically high 20.0-30. 5 [facility] Comment on above: Result Comment: ORDE R COMMENTS:NOTE: The therapeutic time for Heparin anticoagulation, based on Xa activity inhibition, is an APTT of 46-80 seconds. Performed By: #### L [id number], [id number] ####Senior Vice President & General Counsel: VELMA VALADEZ ([phone])[facility])[address] [place] [address] BASIC METABOLIC PANELon 09-2 Anion gap [Moles/Vol] 2 mmol/L Low 3-13 [facility] Comment on above: Performed By: #### L [id number] ####Senior Vice President & General Counsel: VELMA VALADEZ ([phone])[facility])[address] [place] [address] Calcium [Mass/Vol] 9.0 mg/dL Normal 8.4-10.4 [facility] Comment on above: Performed By: #### L [id number] ####Senior Vice President & General Counsel: VELMA VALADEZ ([phone])[facility])[address] [place] [address] Chloride [Moles/Vol] 108 mmol/L High 98-107 [facility] Comment on above: Performed By: #### L [id number] ####Senior Vice President & General Counsel: VELMA VALADEZ ([phone])[facility] ([facility])[address] [place] [address] CO2 [Moles/Vol] 25 mmol/L Normal 22-30 [facility] Comment on above: Performed By: #### L [id number] ####Senior Vice President & General Counsel: VELMA VALADEZ ([phone])[facility])[address] [place] [address] Creatinine [Mass/Vol] 1.00 mg/dL Normal 0.52-1.04 [facility] Comment on above: Performed By: #### L [id number] ####Senior Vice President & General Counsel: VELMA VALADEZ ([phone])[facility])[address] [place] [address] GLOMERULAR FILTRATION RATE ML/MIN/1.73 SQ M.PREDICTED 55.7 mL/min/1.73m*2 Low >60.0 [facility] Comment on above: Result Comment: Calc ulation based on the Chronic Kidney Disease Epidemiology Collaboration (CKD-EPI) equation refit without adjustment for race Performed By: #### L [id number] ####Senior Vice President & General Counsel: VELMA VALADEZ ([phone])[facility] ([facility])[address] [place] [address] Glucose [Mass/Vol] 98 mg/dL Normal 70-100 [facility] Comment on above: Performed By: #### L [id number] ####Senior Vice President & General Counsel: VELMA VALADEZ ([phone])[facility] ([facility])[address] [place] [address] Potassium [Moles/Vol] 4.3 mmol/L Normal 3.5-5.1 [facility] Comment on above: Performed By: #### L [id number] ####Senior Vice President & General Counsel: VELMA VALADEZ ([phone])[facility] ([facility])[address] [place] [address] Sodium [Moles/Vol] 135 mmol/L Normal 135-145 [facility] Comment on above: Performed By: #### L [id number] ####Senior Vice President & General Counsel: VELMA VALADEZ ([phone])[facility] ([facility])[address] [place] [address] Urea nitrogen [Mass/Vol] 18 mg/dL High 7-17 [facility] Comment on above: Performed By: #### L [id number] ####Senior Vice President & General Counsel: VELMA VALDAEZ ([phone])[facility])[address] [place] [address] Basic metabolic 1998 panelon 04-13-2024 Anion gap [...] mg/dL [facility] CARECOORDon 04-13-2024 [facility] Normal [facility] Normal [facility] CBC W Auto Differential pane l [...] Basophils (Bld) [#/Vol] 0.0 10*3/uL Normal 0.0-0.2 [facility] Comment on above: Performed By: #### L [id number] ####Senior Vice President & General Counsel: VELMA VALADEZ ([phone])[facility] ([facility])[address] [place] [address] Basophils/100 WBC (Bld) 0.7 % Normal 0.0-2.0 [facility] Comment on above: Performed By: #### L [id number] ####Senior Vice President & General Counsel: VELMA VALADEZ ([phone])[facility] ([facility])[address] [place] [address] [place] Eosinophils (Bld) [#/Vol] 0.1 10*3/uL Normal 0.0-0.5 [facility] Comment on above: Performed By: #### L [id number] ####Senior Vice President & General Counsel: VELMA VALADEZ ([phone])[facility])[address] [place] [address] Eosinophils/100 WBC (Bld) 2.6 % Normal 0.0-6.0 [facility] Comment on above: Performed By: #### L [id number] ####Senior Vice President & General Counsel: VELMA VALADEZ ([phone])[facility])[address] [place] [address] Erythrocyte distribution width (RBC) [Ratio] 14.5 % Normal 11.5-15.0 [facility] Comment on above: Performed By: #### L [id number] ####Senior Vice President & General Counsel: VELMA VALADEZ ([phone])[address] Hematocrit (Bld) [Volume fraction] 26.3 % Low 35.0-47.0 [facility] Comment on above: Performed By: #### L [id number] ####Senior Vice President & General Counsel: VELMA VALADEZ ([phone])[address] Hemoglobin (Bld) [Mass/Vol] 8.6 g/dL Low 11.7-16.0 [facility] Comment on above: Performed By: #### L [id number] ####Senior Vice President & General Counsel: VELMA VALADEZ ([phone])[facility])[address] [place] [address] IMMATURE GRANS % 0.2 % Normal 0.0-2.[address] [facility] Comment on above: Performed By: #### L [id number] ####Senior Vice President & General Counsel: VELMA VALADEZ ([phone])[address] IMMATURE GRANS ABSOLUTE 0.0 10*3/uL Normal <0.1 [facility] Comment on above: Performed By: #### L [id number] ####Senior Vice President & General Counsel: VELMA VALADEZ ([phone])[facility])[address] [place] [address] Lymphocytes (Bld) [#/Vol] 1.4 10*3/uL Normal 1.0-4.3 [facility] Comment on above: Performed By: #### L [id number] ####Senior Vice President & General Counsel: VELMA VALADEZ ([phone])[facility])[address] [place] [address] Lymphocytes/100 WBC (Bld) 33.5 % Normal 15.0-45.0 [facility] Comment on above: Performed By: #### L [id number] ####Senior Vice President & General Counsel: VELMA VALADEZ ([phone])[facility])[address] [place] [address] MCH (RBC) [Entitic mass] 29.8 pg Normal 26.0-34.0 [facility] Comment on above: Performed By: #### L [id number] ####Senior Vice President & General Counsel: VELMA VALADEZ ([phone])[facility])[address] [place] [address] MCHC 32.7 % Normal 30.5-36.0 [facility] Comment on above: Performed By: #### L [id number] ####Senior Vice President & General Counsel: VELMA VALADEZ ([phone])[facility])[address] [place] [address] MCV (RBC) [Entitic vol] 91.0 fL Normal 77.0-99.0 [facility] Comment on above: Performed By: #### L [id number] ####Senior Vice President & General Counsel: VELMA VALADEZ ([phone])[facility])[address] [place] [address] Monocytes (Bld) [#/Vol] 0.5 10*3/uL Normal 0.0-0.9 [facility] Comment on above: Performed By: #### L [id number] ####Senior Vice President & General Counsel: VELMA VALADEZ ([phone])[facility])[address] [place] [address] Monocytes/100 WBC (Bld) 11.3 % Normal 5.0-13.0 [facility] Comment on above: Performed By: #### L [id number] ####Senior Vice President & General Counsel: VELMA VALADEZ ([phone])[facility] ([facility])[address] [place] [address] NEUTROPHILS ABSOLUTE 2.2 10*3/uL Normal 1.8-7.5 [facility] Comment on above: Performed By: #### L [id number] ####Senior Vice President & General Counsel: VELMA VALADEZ ([phone])[facility] ([facility])[address] [place] [address] Neutrophils/100 WBC (Bld) 51.7 % Normal 38.0-82.0 [facility] Comment on above: Performed By: #### L [id number] ####Senior Vice President & General Counsel: VELMA VALADEZ ([phone])[facility] ([facility])[address] [place] [address] NRBC 0.0 /100 WBCs Normal 0.0-2.0 [facility] Comment on above: Performed By: #### L [id number] ####Senior Vice President & General Counsel: VELMA VALADEZ ([phone])[facility] ([facility])[address] [place] [address] Platelet mean volume (Bld) [Entitic vol] 9.4 fL Normal 9.0-12.7 [facility] Comment on above: Performed By: #### L [id number] ####Senior Vice President & General Counsel: VELMA VALADEZ ([phone])[facility] ([facility])[address] [place] [address] [place] Platelets (Bld) [#/Vol] 317 10*3/uL Normal 140-440 [facility] Comment on above: Performed By: #### L [id number] ####Senior Vice President & General Counsel: VELMA VALADEZ ([phone])[facility] ([facility])[address] [place] [address] [place] RBC (Bld) [#/Vol] 2.89 10*6/uL Low 3.80-5.20 [facility] Comment on above: Performed By: #### L [id number] ####Senior Vice President & General Counsel: VELMA VALADEZ ([phone])[facility])[address] [place] [address] WBC (Bld) [#/Vol] 4.2 10*3/uL Normal 3.6-10.7 [facility] Comment on above: Performed By: #### L [id number] ####Senior Vice President & General Counsel: VELMA VALADEZ ([phone])[facility] ([facility])[address] [place] [address] [place] IDNon 04-13-2024 IDN Normal [facility] Laboratory - Coagulationon 0 04-13-2024 PT Coag (Bld) [Time] 24.2 s High 9.0 - 1 2.0 s [facility] Nursing Noteon 04-13-2024 Nursing Note AVS explained. Discharged patient on stable condition. Normal [facility] Nursing Note Instructed patient o n warfarin dosing, she will take 7.5mg tomorrow, and 5mg Tuesday, and then we will check INR with home care on Tuesday as instructed. Normal [facility] PROTHROMBIN TIMEon INR Coag (PPP) [Relative time] 2.3 {INR} High 0.9-1.1 [facility] Comment on above: Result Comment: Timothy [...] Myocardial Infarction Performed By: #### L [id number], [id number] ####Senior Vice President & General Counsel: VELMA VALADEZ ([phone])[facility] ([facility])[address] [place] [address] PT Coag (PPP) [Time] 24.2 s High 9.0-12.0 [facility] Comment on above: Performed By: #### L AB320, [id number] ####Senior Vice President & General Counsel: VELMA VALADEZ ([phone])[facility] ([facility])[address] PT Coag (Bld) [Time]on 04-13 INR [...] Center Progress Noteon 04-13-2024 Progress Note Normal [facility] Progress Note Normal [facility] Progress Note Normal [facility] aPTT Coag (Bld) [Time]Ordere d By: [...] Anion gap [Moles/Vol] 3 mmol/L Normal 3-13 [facility] Comment on above: Performed By: #### L AB15 ####Senior Vice President & General Counsel: VELMA VALADEZ ([phone])[facility] ([facility])[address] Calcium [Mass/Vol] 9.3 mg/dL Normal 8.4-10.4 [facility] Comment on above: Performed By: #### L AB15 ####Senior Vice President & General Counsel: VELMA VALADEZ ([phone])[facility] ([facility])[address] [place] [address] Chloride [Moles/Vol] 108 mmol/L High 98-107 [facility] Comment on above: Performed By: #### L AB15 ####Senior Vice President & General Counsel: VELMA VALADEZ ([phone])[facility] ([facility])[address] [place] [address] CO2 [Moles/Vol] 24 mmol/L Normal 22-30 [facility] Comment on above: Performed By: #### L AB15 ####Senior Vice President & General Counsel: VELMA VALADEZ ([phone])[facility])[address] [place] [address] Creatinine [Mass/Vol] 0.99 mg/dL Normal 0.52-1.04 [facility] Comment on above: Performed By: #### L AB15 ####Senior Vice President & General Counsel: VLEMA VALADEZ ([phone])[facility])[address] [place] [address] GLOMERULAR FILTRATION RATE ML/MIN/1.73 SQ M.PREDICTED 56.3 mL/min/1.73m*2 Low >60.0 [facility] Comment on above: Result Comment: Calc ulation based on the Chronic Kidney Disease Epidemiology Collaboration (CKD-EPI) equation refit without adjustment for race Performed By: #### L [id number] ####Senior Vice President & General Counsel: VELMA VALADEZ ([phone])[facility] ([facility])[address] [place] [address] Glucose [Mass/Vol] 101 mg/dL High 70-100 [facility] Comment on above: Performed By: #### L [id number] ####Senior Vice President & General Counsel: VELMA VALADEZ ([phone])[facility])[address] [place] [address] Potassium [Moles/Vol] 3.9 mmol/L Normal 3.5-5.1 [facility] Comment on above: Performed By: #### L [id number] ####Senior Vice President & General Counsel: VELMA [id number])[facility])[address] [place] [address] Sodium [Moles/Vol] 135 mmol/L Normal 135-145 [facility] Comment on above: Performed By: #### L [id number] ####Senior Vice President & General Counsel: VELMA VALADEZ ([phone])[facility] ([facility])[address] [place] [address] Urea nitrogen [Mass/Vol] 16 mg/dL Normal 7-17 [facility] Comment on above: Performed By: #### L [id number] ####Senior Vice President & General Counsel: VELMA VALADEZ ([phone])[facility] ([facility])[address] [place] [address] Basic metabolic 1998 panelon 04-12-2024 Anion gap [facility] CAR[facility]OORDon 04-12-2024 [place] Normal [facility] CBC W Auto Differential pane l (Bld)on 04-12-2024 Basophils (Bld) [#/Vol] 0.0 10*3/uL 0.0 - 0.2 10*3/uL [facility] Basophils/100 WBC (Bld) 0.5 % 0.0 - 2.0 % [facility] Eosinophils (Bld) [#/Vol] 0.1 10*3/uL 0.0 - 0.5 10*3/uL [facility] Eosinophils/100 WBC (Bld) 2.4 % 0.0 [...] [#/Vol] 0.0 10*3/uL NINF - 0.1 10*3/uL [facility] Immature granulocytes/100 WBC (Bld) 0.2 % 0.0 - 2.0 % [facility] Interpretation and review of laboratory results Abnormal [facility] Lymphocytes (Bld) [#/Vol] 1.4 10*3/uL 1.0 - 4.3 10*3/uL [facility] Lymphocytes/100 WBC (Bld) 33.0 % 15.0 [...] [#/Vol] 0.5 10*3/uL 0.0 - 0.9 10*3/uL [facility] Monocytes/100 WBC (Bld) 11.9 % 5.0 - 13.0 % [facility] Neutrophils (Bld) [#/Vol] 2.1 10*3/uL 1.8 - 7.5 10*3/uL [facility] Neutrophils/100 WBC (Bld) 52.0 % 38.0 - 82.0 % [facility] Nucleated RBC/100 WBC (Bld) [Ratio] 0.0 % [facility] Platelet mean volume (Bld) [Entitic vol] 9.5 fL 9.0 - 12.7 fL [facility] Platelets (Bld) [#/Vol] 307 10*3/uL 140 - 440 10*3/uL [facility] RBC (Bld) [#/Vol] 3.06 10*6/uL Low 3.80 - 5.2 0 10*6/uL [facility] WBC (Bld) [#/Vol] 4.1 10*3/uL 3.6 - 10.7 10*3/uL [facility] CBC WITH AUTO DIFFERENTIALon 04-12-2024 Basophils (Bld) [#/Vol] 0.0 10*3/uL Normal 0.0-0.2 [facility] Comment on above: Performed By: #### L [id number] ####Senior Vice President & General Counsel: VELMA VALADEZ ([phone])[facility])[address] [place] [address] Basophils/100 WBC (Bld) 0.5 % Normal 0.0-2.0 [facility] Comment on above: Performed By: #### L [id number] ####Senior Vice President & General Counsel: VELMA VALADEZ ([phone])[facility])[address] [place] [address] Eosinophils (Bld) [#/Vol] 0.1 10*3/uL Normal 0.0-0.5 [facility] Comment on above: Performed By: #### L [id number] ####Senior Vice President & General Counsel: VELMA VALADEZ ([phone])[facility])[address] [place] [address] Eosinophils/100 WBC (Bld) 2.4 % Normal 0.0-6.0 [facility] Comment on above: Performed By: #### L [id number] ####Senior Vice President & General Counsel: VELMA VALADEZ ([phone])[facility])[address] [place] [address] Erythrocyte distribution width (RBC) [Ratio] 14.8 % Normal 11.5-15.0 [facility] Comment on above: Performed By: #### L [id number] ####Senior Vice President & General Counsel: VELMA VALADEZ ([phone])[facility])[address] [place] [address] Hematocrit (Bld) [Volume fraction] 28.3 % Low 35.0-47.0 [facility] Comment on above: Performed By: #### L [id number] ####Senior Vice President & General Counsel: VELMA VALADEZ ([phone])[facility])[address] [place] [address] Hemoglobin (Bld) [Mass/Vol] 9.3 g/dL Low 11.7-16.0 [facility] Comment on above: Performed By: #### L [id number] ####Senior Vice President & General Counsel: VELMA VALADEZ ([phone])[facility])[address] [place] [address] IMMATURE GRANS % 0.2 % Normal 0.0-2.[address] [facility] Comment on above: Performed By: #### L [id number] ####Senior Vice President & General Counsel: VELMA VALADEZ ([phone])[facility])[address] [place] [address] IMMATURE GRANS ABSOLUTE 0.0 10*3/uL Normal <0.1 [facility] Comment on above: Performed By: #### L [id number] ####Senior Vice President & General Counsel: VELMA VALADEZ ([phone])[facility])[address] [place] [address] Lymphocytes (Bld) [#/Vol] 1.4 10*3/uL Normal 1.0-4.3 [facility] Comment on above: Performed By: #### L [id number] ####Senior Vice President & General Counsel: VELMA VALADEZ ([phone])[facility])[address] [place] [address] Lymphocytes/100 WBC (Bld) 33.0 % Normal 15.0-45.0 [facility] Comment on above: Performed By: #### L [id number] ####Senior Vice President & General Counsel: VELMA VALADEZ ([phone])[facility] [place] [address] MCH (RBC) [Entitic mass] 30.4 pg Normal 26.0-34.0 [facility] Comment on above: Performed By: #### L [id number] ####Senior Vice President & General Counsel: VELMA VALADEZ ([phone])[facility])[address] [place] [address] MCHC 32.9 % Normal 30.5-36.0 [facility] Comment on above: Performed By: #### L [id number] ####Senior Vice President & General Counsel: VELMA VALADEZ ([phone])[facility])[address] [place] [address] MCV (RBC) [Entitic vol] 92.5 fL Normal 77.0-99.0 [facility] Comment on above: Performed By: #### L [id number] ####Senior Vice President & General Counsel: VELMA VALADEZ ([phone])[facility])[address] [place] [address] Monocytes (Bld) [#/Vol] 0.5 10*3/uL Normal 0.0-0.9 [facility] Comment on above: Performed By: #### L [id number] ####Senior Vice President & General Counsel: VELMA VALADEZ ([phone])[facility])[address] [place] [address] Monocytes/100 WBC (Bld) 11.9 % Normal 5.0-13.0 [facility] Comment on above: Performed By: #### L [id number] ####Senior Vice President & General Counsel: VELMA VALADEZ ([phone])[facility])[address] [place] [address] NEUTROPHILS ABSOLUTE 2.1 10*3/uL Normal 1.8-7.5 [facility] Comment on above: Performed By: #### L [id number] ####Senior Vice President & General Counsel: VELMA VALADEZ ([phone])[facility])[address] [place] [address] Neutrophils/100 WBC (Bld) 52.0 % Normal 38.0-82.0 [facility] Comment on above: Performed By: #### L [id number] ####Senior Vice President & General Counsel: VELMA VALADEZ ([phone])[facility] ([facility])[address] [place] [address] NRBC 0.0 /100 WBCs Normal 0.0-2.0 [facility] Comment on above: Performed By: #### L [id number] ####Senior Vice President & General Counsel: VELMA VALADEZ ([phone])[facility] ([facility])[address] [place] [address] Platelet mean volume (Bld) [Entitic vol] 9.5 fL Normal 9.0-12.7 [facility] Comment on above: Performed By: #### L [id number] ####Senior Vice President & General Counsel: VELMA VALADEZ ([phone])[facility] ([facility])[address] [place] [address] Platelets (Bld) [#/Vol] 307 10*3/uL Normal 140-440 [facility] Comment on above: Performed By: #### L [id number] ####Senior Vice President & General Counsel: VELMA VALADEZ ([phone])[facility] ([facility])[address] [place] [address] RBC (Bld) [#/Vol] 3.06 10*6/uL Low 3.80-5.20 [facility] Comment on above: Performed By: #### L [id number] ####Senior Vice President & General Counsel: VELMA VALADEZ ([phone])[facility] ([facility])[address] [place] [address] WBC (Bld) [#/Vol] 4.1 10*3/uL Normal 3.6-10.7 [facility] Comment on above: Performed By: #### L [id number] ####Senior Vice President & General Counsel: VELMA VALADEZ ([phone])[facility] ([facility])[address] [place] [address] IDNon 04-12-2024 IDN Normal [facility] IDN Normal [facility] Laboratory - Coagulationon 0 04-12-2024 PT Coag (Bld) [Time] 20.3 s High 9.0 - 1 2.0 s [facility] PROTHROMBIN TIMEon INR Coag (PPP) [Relative time] 1.9 {INR} High 0.9-1.1 [facility] Comment on above: Result Comment: Timothy [...] Myocardial Infarction Performed By: #### L [id number] ####Senior Vice President & General Counsel: VELMA VALADEZ ([phone])[address] PT Coag (PPP) [Time] 20.3 s High 9.0-12.0 [facility] Comment on above: Performed By: #### L [id number] ####Senior Vice President & General Counsel: VELMA VALADEZ ([phone])[address] PT Coag (Bld) [Time]on 04-12 INR Coag [...] Center Progress Noteon 04-12-2024 Progress Note Normal [facility] Progress Note Normal [facility] [employer] [facility] APTTon 04-11-2024 aPTT Coag (Bld) [Time] 62.7 s High 20.0-30.5 [facility] Comment on above: Result Comment: BUBBA Garcia COMMENTS:NOTE: The therapeutic time for Heparin anticoagulation, based on Xa activity inhibition, is an APTT of 46-80 seconds. Performed By: #### L [id number] ####Senior Vice President & General Counsel: VELMA VALADEZ ([phone])[facility] [place] [address] aPTT Coag (Bld) [Time] 69.0 s High 20.0-30.5 [facility] Comment on above: Result Comment: BUBBA Garcia COMMENTS:NOTE: The therapeutic time for Heparin anticoagulation, based on Xa activity inhibition, is an APTT of 46-80 seconds. Performed By: #### L AB320, [id number] ####Senior Vice President & General Counsel: VELMA VALADEZ ([phone])[facility] ([facility])[address] [place] [address] BASIC METABOLIC PANELon 03-19 Anion gap [Moles/Vol] 4 mmol/L Normal 3-13 [facility] Comment on above: Performed By: #### L [id number] ####Senior Vice President & General Counsel: VELMA VALADEZ ([phone])[facility] ([facility])[address] [place] [address] Calcium [Mass/Vol] 8.8 mg/dL Normal 8.4-10.4 [facility] Comment on above: Performed By: #### L [id number] ####Senior Vice President & General Counsel: VELMA VALADEZ ([phone])[facility] ([facility])[address] [place] [address] [place] Chloride [Moles/Vol] 108 mmol/L High 98-107 [facility] Comment on above: Performed By: #### L [id number] ####Senior Vice President & General Counsel: VELMA VALADEZ ([phone])[facility] ([facility])[address] [place] [address] CO2 [Moles/Vol] 22 mmol/L Normal 22-30 [facility] Comment on above: Performed By: #### L [id number] ####Senior Vice President & General Counsel: VELMA VALADEZ ([phone])[facility])[address] [place] [address] Creatinine [Mass/Vol] 1.01 mg/dL Normal 0.52-1.04 [facility] Comment on above: Performed By: #### L [id number] ####Senior Vice President & General Counsel: VELMA VALADEZ ([phone])[facility])[address] [place] [address] GLOMERULAR FILTRATION RATE ML/MIN/1.73 SQ M.PREDICTED 55.0 mL/min/1.73m*2 Low >60.0 [facility] Comment on above: Result Comment: Calc ulation based on the Chronic Kidney Disease Epidemiology Collaboration (CKD-EPI) equation refit without adjustment for race Performed By: #### L AB15 ####Senior Vice President & General Counsel: VELMA VALADEZ ([phone])[facility])[address] [place] [address] Glucose [Mass/Vol] 112 mg/dL High 70-100 [facility] Comment on above: Performed By: #### L [id number] ####Senior Vice President & General Counsel: VELMA VALADEZ ([phone])[facility])[address] [place] [address] Potassium [Moles/Vol] 4.0 mmol/L Normal 3.5-5.1 [facility] Comment on above: Performed By: #### L [id number] ####Senior Vice President & General Counsel: VELMA VALADEZ ([phone])[facility])[address] [place] [address] Sodium [Moles/Vol] 134 mmol/L Low 135-145 [facility] Comment on above: Performed By: #### L [id number] ####Senior Vice President & General Counsel: VELMA VALADEZ ([phone])[facility])[address] [place] [address] Urea nitrogen [Mass/Vol] 16 mg/dL Normal 7-17 [facility] Comment on above: Performed By: #### L [id number] ####Senior Vice President & General Counsel: VELMA VALADEZ ([phone])[facility] ([facility])[address] [place] [address] Basic metabolic 1998 panelon 04-11-2024 Anion gap [...] mg/dL [facility] CARECOORDon 04-11-2024 CARECOBAGLEY Normal [facility] CBC W Auto Differential pane [...] [#/Vol] 0.0 10*3/uL NINF - 0.1 10*3/uL [facility] Immature granulocytes/100 WBC (Bld) 0.2 % [...] Basophils (Bld) [#/Vol] 0.0 10*3/uL Normal 0.0-0.2 [facility] Comment on above: Performed By: #### L [id number] ####Senior Vice President & General Counsel: VELMA VALADEZ ([phone])[facility] ([facility])[address] [place] [address] Basophils/100 WBC (Bld) 0.9 % Normal 0.0-2.0 [facility] Comment on above: Performed By: #### L [id number] ####Senior Vice President & General Counsel: VELMA VALADEZ ([phone])[facility] ([facility])[address] [place] [address] Eosinophils (Bld) [#/Vol] 0.1 10*3/uL Normal 0.0-0.5 [facility] Comment on above: Performed By: #### L [id number] ####Senior Vice President & General Counsel: VELMA VALADEZ ([phone])[facility] ([facility])[address] [place] [address] Eosinophils/100 WBC (Bld) 2.0 % Normal 0.0-6.0 [facility] Comment on above: Performed By: #### L [id number] ####Senior Vice President & General Counsel: VELMA VALADEZ ([phone])[facility])[address] [place] [address] Erythrocyte distribution width (RBC) [Ratio] 14.8 % Normal 11.5-15.0 [facility] Comment on above: Performed By: #### L [id number] ####Senior Vice President & General Counsel: VELMA VALADEZ ([phone])[facility] ([facility])[address] [place] [address] Hematocrit (Bld) [Volume fraction] 24.6 % Low 35.0-47.0 [facility] Comment on above: Performed By: #### L [id number] ####Senior Vice President & General Counsel: VELMA VALADEZ ([phone])[facility])[address] [place] [address] Hemoglobin (Bld) [Mass/Vol] 8.3 g/dL Low 11.7-16.0 [facility] Comment on above: Performed By: #### L [id number] ####Senior Vice President & General Counsel: VELMA VALADEZ ([phone])[facility])[address] [place] [address] IMMATURE GRANS % 0.2 % Normal 0.0-2.0 [facility] Comment on above: Performed By: #### L [id number] ####Senior Vice President & General Counsel: VELMA VALADEZ ([phone])[facility])[address] [place] [address] IMMATURE GRANS ABSOLUTE 0.0 10*3/uL Normal <0.1 [facility] Comment on above: Performed By: #### L [id number] ####Senior Vice President & General Counsel: VELMA VALADEZ ([phone])[address] Lymphocytes (Bld) [#/Vol] 1.4 10*3/uL Normal 1.0-4.3 [facility] Comment on above: Performed By: #### L [id number] ####Senior Vice President & General Counsel: VELMA VALADEZ ([phone])[address] Lymphocytes/100 WBC (Bld) 31.9 % Normal 15.0-45.0 [facility] Comment on above: Performed By: #### L [id number] ####Senior Vice President & General Counsel: VELMA VALADEZ ([phone])[facility])[address] [place] [address] MCH (RBC) [Entitic mass] 30.5 pg Normal 26.0-34.0 [facility] Comment on above: Performed By: #### L [id number] ####Senior Vice President & General Counsel: VELMA VALADEZ ([phone])[address] MCHC 33.7 % Normal 30.5-36.0 [facility] Comment on above: Performed By: #### L [id number] ####Senior Vice President & General Counsel: VELMA VALADEZ ([phone])[facility] ([facility])[address] [place] [address] MCV (RBC) [Entitic vol] 90.4 fL Normal 77.0-99.0 [facility] Comment on above: Performed By: #### L [id number] ####Senior Vice President & General Counsel: VELMA VALADEZ ([phone])[facility] ([facility])[address] [place] [address] Monocytes (Bld) [#/Vol] 0.5 10*3/uL Normal 0.0-0.9 [facility] Comment on above: Performed By: #### L [id number] ####Senior Vice President & General Counsel: VELMA VALADEZ ([phone])[facility] ([facility])[address] [place] [address] Monocytes/100 WBC (Bld) 11.2 % Normal 5.0-13.0 [facility] Comment on above: Performed By: #### L [id number] ####Senior Vice President & General Counsel: VELMA VALADEZ ([phone])[facility] ([facility])[address] [place] [address] NEUTROPHILS ABSOLUTE 2.4 10*3/uL Normal 1.8-7.5 [facility] Comment on above: Performed By: #### L [id number] ####Senior Vice President & General Counsel: VELMA VALADEZ ([phone])[facility] ([facility])[address] [place] [address] Neutrophils/100 WBC (Bld) 53.8 % Normal 38.0-82.0 [facility] Comment on above: Performed By: #### L [id number] ####Senior Vice President & General Counsel: VELMA VALADEZ ([phone])[facility] ([facility])[address] [place] [address] NRBC 0.0 /100 WBCs Normal 0.0-2.0 [facility] Comment on above: Performed By: #### L [id number] ####Senior Vice President & General Counsel: VELMA VALADEZ ([phone])[facility] ([facility])[address] [place] [address] Platelet mean volume (Bld) [Entitic vol] 10.0 fL Normal 9.0-12.7 [facility] Comment on above: Performed By: #### L [id number] ####Senior Vice President & General Counsel: VELMA VALADEZ ([phone])[facility] ([facility])[address] [place] [address] Platelets (Bld) [#/Vol] 244 10*3/uL Normal 140-440 [facility] Comment on above: Performed By: #### L [id number] ####Senior Vice President & General Counsel: VELMA VALADEZ ([phone])[facility] ([facility])[address] [place] [address] RBC (Bld) [#/Vol] 2.72 10*6/uL Low 3.80-5.20 [facility] Comment on above: Performed By: #### L [id number] ####Senior Vice President & General Counsel: VELMA VALADEZ ([phone])[facility] ([facility])[address] [place] [address] WBC (Bld) [#/Vol] 4.5 10*3/uL Normal 3.6-10.7 [facility] Comment on above: Performed By: #### L [id number] ####Senior Vice President & General Counsel: VELMA VALADEZ ([phone])[facility] ([facility])[address] [place] [address] IDNon 04-11-2024 IDN Normal [facility] IDN Normal [facility] Laboratory - Coagulationon 0 04-11-2024 PT Coag (Bld) [Time] 20.9 s High 9.0 - 1 2.0 s [facility] No Panel Informationon 04-11 Interpretation and review of laboratory results Abnormal [facility] PROTHROMBIN TIMEon INR Coag (PPP) [Relative time] 1.9 {INR} High 0.9-1.1 [facility] Comment on above: Result Comment: Timothy [...] Myocardial Infarction Performed By: #### Weston AB320, [id number] ####Senior Vice President & General Counsel: VELMA VALADEZ ([phone])[facility] ([facility])[address] [place] [address] PT Coag (PPP) [Time] 20.9 s High 9.0-12.0 [facility] Comment on above: Performed By: #### Weston AB320, [id number] ####Senior Vice President & General Counsel: VELMA VALADEZ ([phone])[facility] ([facility])[address] [place] [address] PT Coag (Bld) [Time]on 04-11 INR Coag [...] Infarction Progress Noteon 04-11-2024 Progress Note Normal [facility] Progress Note Normal [facility] Progress Note Normal [facility] Progress Note Normal [facility] aPTT Coag (Bld) [Time]on aPTT Coag [...] Coag (Bld) [Time] 59.0 s High 20.0-30.5 [facility] Comment on above: Result Comment: BUBBA Garcia COMMENTS:NOTE: The therapeutic time for Heparin anticoagulation, based on Xa activity inhibition, is an APTT of 46-80 seconds. Performed By: #### L [id number] ####Senior Vice President & General Counsel: VELMA VALADEZ ([phone])[facility])[address] [place] [address] aPTT Coag (Bld) [Time] 77.3 s High 20.0-30.5 [facility] Comment on above: Result Comment: BUBBA Garcia COMMENTS:NOTE: The therapeutic time for Heparin anticoagulation, based on Xa activity inhibition, is an APTT of 46-80 seconds. Performed By: #### L [id number], [id number] ####Senior Vice President & General Counsel: VELMA VALADEZ ([phone])[facility])[address] [place] [address] BASIC METABOLIC PANELon 03-19 Anion gap [Moles/Vol] 3 mmol/L Normal 3-13 [facility] Comment on above: Performed By: #### L AB15 ####Senior Vice President & General Counsel: VELMA VALADEZ ([phone])[facility])[address] [place] [address] [place] Calcium [Mass/Vol] 9.0 mg/dL Normal 8.4-10.4 [facility] Comment on above: Performed By: #### L AB15 ####Senior Vice President & General Counsel: VELMA VALADEZ ([phone])[facility])[address] [place] [address] Chloride [Moles/Vol] 111 mmol/L High 98-107 [facility] Comment on above: Performed By: #### L AB15 ####Senior Vice President & General Counsel: VELMA VALADEZ ([phone])[facility])[address] [place] [address] CO2 [Moles/Vol] 21 mmol/L Low 22-30 [facility] Comment on above: Performed By: #### L AB15 ####Senior Vice President & General Counsel: VELMA VALADEZ ([phone])[facility] ([facility])[address] [place] [address] Creatinine [Mass/Vol] 1.00 mg/dL Normal 0.52-1.04 [facility] Comment on above: Performed By: #### L AB15 ####Senior Vice President & General Counsel: VELMA VALADEZ ([phone])[facility] ([facility])[address] [place] [address] GLOMERULAR FILTRATION RATE ML/MIN/1.73 SQ M.PREDICTED 55.7 mL/min/1.73m*2 Low >60.0 [facility] Comment on above: Result Comment: Calc ulation based on the Chronic Kidney Disease Epidemiology Collaboration (CKD-EPI) equation refit without adjustment for race Performed By: #### L AB15 ####Senior Vice President & General Counsel: VELMA VALADEZ ([phone])[facility] ([facility])[address] [place] [address] Glucose [Mass/Vol] 101 mg/dL High 70-100 [facility] Comment on above: Performed By: #### L [id number] ####Senior Vice President & General Counsel: VELMA VALADEZ ([phone])[facility] ([facility])[address] [place] [address] Potassium [Moles/Vol] 3.8 mmol/L Normal 3.5-5.1 [facility] Comment on above: Performed By: #### L AB15 ####Senior Vice President & General Counsel: VELMA VALADEZ ([phone])[facility] ([facility])[address] [place] [address] Sodium [Moles/Vol] 136 mmol/L Normal 135-145 [facility] Comment on above: Performed By: #### L [id number] ####Senior Vice President & General Counsel: VELMA VALADEZ ([phone])[facility] ([facility])[address] [place] [address] Urea nitrogen [Mass/Vol] 15 mg/dL Normal 7-17 [facility] Comment on above: Performed By: #### L [id number] ####Senior Vice President & General Counsel: VELMA VALADEZ ([phone])[facility] ([facility])[address] [place] [address] Basic metabolic 1998 panelon 04-10-2024 Anion gap [...] mg/dL [facility] CARECOORDon 04-10-2024 CARECOORD Normal [facility] CBC W Auto Differential pane l (Bld)on 04-10-2024 Basophils (Bld) [#/Vol] 0.0 10*3/uL 0.0 - 0.2 10*3/uL [facility] Basophils/100 WBC (Bld) 0.7 % 0.0 - 2.0 % [facility] Eosinophils (Bld) [#/Vol] 0.1 10*3/uL 0.0 - 0.5 10*3/uL [facility] Eosinophils/100 WBC (Bld) 2.1 % 0.0 - 6.0 % [facility] Erythrocyte distribution width (RBC) [Ratio] 14.7 % 11.5 - 15.0 % [facility] Hematocrit (Bld) [Volume fraction] 26.0 % Low 35.0 - 47.0 % [facility] Hemoglobin (Bld) [Mass/Vol] 8.6 g/dL Low 11.7 - 16.0 g/dL [facility] Immature granulocytes (Bld) [#/Vol] 0.0 10*3/uL NINF - 0.1 10*3/uL [facility] Immature granulocytes/100 WBC (Bld) 0.2 % 0.0 - 2.0 % [facility] Interpretation and review of laboratory results Abnormal [facility] Lymphocytes (Bld) [#/Vol] 1.4 10*3/uL 1.0 - 4.3 10*3/uL [facility] Lymphocytes/100 WBC (Bld) 32.9 % 15.0 - 45.0 % [facility] MCH (RBC) [Entitic mass] 30.1 pg 26.0 - 34.0 pg [facility] MCHC (RBC) [Mass/Vol] 33.1 % 30.5 - 36.0 % [facility] MCV (RBC) [Entitic vol] 90.9 fL 77.0 - 99.0 fL [facility] Monocytes (Bld) [#/Vol] 0.6 10*3/uL 0.0 - 0.9 10*3/uL [facility] Monocytes/100 WBC (Bld) 13.6 % High 5.0 - 13.0 % [facility] Neutrophils (Bld) [#/Vol] 2.1 10*3/uL 1.8 - 7.5 10*3/uL [facility] Neutrophils/100 WBC (Bld) 50.5 % 38.0 - 82.0 % [facility] Nucleated RBC/100 WBC (Bld) [Ratio] 0.0 % [facility] Platelet mean volume (Bld) [Entitic vol] 10.0 fL 9.0 - 12.7 fL [facility] Platelets (Bld) [#/Vol] 238 10*3/uL 140 - 440 10*3/uL [facility] RBC (Bld) [#/Vol] 2.86 10*6/uL Low 3.80 - 5.2 0 10*6/uL [facility] WBC (Bld) [#/Vol] 4.3 10*3/uL 3.6 - 10.7 10*3/uL [facility] CBC WITH AUTO DIFFERENTIALon 04-10-2024 Basophils (Bld) [#/Vol] 0.0 10*3/uL Normal 0.0-0.2 [facility] Comment on above: Performed By: #### L [id number] ####Senior Vice President & General Counsel: VELMA VALADEZ ([phone])[facility])[address] [place] [address] Basophils/100 WBC (Bld) 0.7 % Normal 0.0-2.0 [facility] Comment on above: Performed By: #### L [id number] ####Senior Vice President & General Counsel: VELMA VALADEZ ([phone])[facility])[address] [place] [address] Eosinophils (Bld) [#/Vol] 0.1 10*3/uL Normal 0.0-0.5 [facility] Comment on above: Performed By: #### L [id number] ####Senior Vice President & General Counsel: VELMA VALADEZ ([phone])[facility])[address] [place] [address] Eosinophils/100 WBC (Bld) 2.1 % Normal 0.0-6.0 [facility] Comment on above: Performed By: #### L [id number] ####Senior Vice President & General Counsel: VELMA VALADEZ ([phone])[facility])[address] [place] [address] Erythrocyte distribution width (RBC) [Ratio] 14.7 % Normal 11.5-15.0 [facility] Comment on above: Performed By: #### L [id number] ####Senior Vice President & General Counsel: VELMA VALADEZ ([phone])[facility])[address] [place] [address] Hematocrit (Bld) [Volume fraction] 26.0 % Low 35.0-47.0 [facility] Comment on above: Performed By: #### L [id number] ####Senior Vice President & General Counsel: VELMA VALADEZ ([phone])[facility])[address] [place] [address] Hemoglobin (Bld) [Mass/Vol] 8.6 g/dL Low 11.7-16.0 [facility] Comment on above: Performed By: #### L [id number] ####Senior Vice President & General Counsel: VELMA VALADEZ ([phone])[facility])[address] [place] [address] IMMATURE GRANS % 0.2 % Normal 0.0-2.[address] [facility] Comment on above: Performed By: #### L [id number] ####Senior Vice President & General Counsel: VELMA VALADEZ ([phone])[address] IMMATURE GRANS ABSOLUTE 0.0 10*3/uL Normal <0.1 [facility] Comment on above: Performed By: #### L [id number] ####Senior Vice President & General Counsel: VELMA VALADEZ ([phone])[facility])[address] [place] [address] Lymphocytes (Bld) [#/Vol] 1.4 10*3/uL Normal 1.0-4.3 [facility] Comment on above: Performed By: #### L [id number] ####Senior Vice President & General Counsel: VELMA VALADEZ ([phone])[facility])[address] [place] [address] Lymphocytes/100 WBC (Bld) 32.9 % Normal 15.0-45.0 [facility] Comment on above: Performed By: #### L [id number] ####Senior Vice President & General Counsel: VELMA VALADEZ ([phone])[facility])[address] [place] [address] MCH (RBC) [Entitic mass] 30.1 pg Normal 26.0-34.0 [facility] Comment on above: Performed By: #### L [id number] ####Senior Vice President & General Counsel: VELMA VALADEZ ([phone])[facility])[address] [place] [address] MCHC 33.1 % Normal 30.5-36.0 [facility] Comment on above: Performed By: #### L [id number] ####Senior Vice President & General Counsel: VELMA VALADEZ ([phone])[facility])[address] [place] [address] MCV (RBC) [Entitic vol] 90.9 fL Normal 77.0-99.0 [facility] Comment on above: Performed By: #### L [id number] ####Senior Vice President & General Counsel: VELMA VALADEZ ([phone])[facility] ([facility])[address] [place] [address] Monocytes (Bld) [#/Vol] 0.6 10*3/uL Normal 0.0-0.9 [facility] Comment on above: Performed By: #### L [id number] ####Senior Vice President & General Counsel: VELMA VALADEZ ([phone])[facility] ([facility])[address] [place] [address] Monocytes/100 WBC (Bld) 13.6 % High 5.0-13.0 [facility] Comment on above: Performed By: #### L [id number] ####Senior Vice President & General Counsel: VELMA VALADEZ ([phone])[facility] ([facility])[address] [place] [address] NEUTROPHILS ABSOLUTE 2.1 10*3/uL Normal 1.8-7.5 [facility] Comment on above: Performed By: #### L [id number] ####Senior Vice President & General Counsel: VELMA VALADEZ ([phone])[facility])[address] [place] [address] Neutrophils/100 WBC (Bld) 50.5 % Normal 38.0-82.0 [facility] Comment on above: Performed By: #### L [id number] ####Senior Vice President & General Counsel: VELMA VALADEZ ([phone])[facility])[address] [place] [address] NRBC 0.0 /100 WBCs Normal 0.0-2.0 [facility] Comment on above: Performed By: #### L [id number] ####Senior Vice President & General Counsel: VELMA VALADEZ ([phone])[facility])[address] [place] [address] Platelet mean volume (Bld) [Entitic vol] 10.0 fL Normal 9.0-12.7 [facility] Comment on above: Performed By: #### L [id number] ####Senior Vice President & General Counsel: VELMA VALADEZ ([phone])[facility] ([facility])[address] [place] [address] Platelets (Bld) [#/Vol] 238 10*3/uL Normal 140-440 [facility] Comment on above: Performed By: #### L [id number] ####Senior Vice President & General Counsel: VELMA VALADEZ ([phone])[facility])[address] [place] [address] RBC (Bld) [#/Vol] 2.86 10*6/uL Low 3.80-5.20 [facility] Comment on above: Performed By: #### L [id number] ####Senior Vice President & General Counsel: VELMA VALADEZ ([phone])[facility])[address] [place] [address] WBC (Bld) [#/Vol] 4.3 10*3/uL Normal 3.6-10.7 [facility] Comment on above: Performed By: #### L [id number] ####Senior Vice President & General Counsel: VELMA VALADEZ ([phone])[facility])[address] [place] [address] IDNon 04-10-2024 IDN Normal [facility] Laboratory - Coagulationon 0 04-10-2024 PT Coag (Bld) [Time] 17.7 s High 9.0 - 1 2.0 s [facility] No Panel Informationon 04-10 Interpretation and review of laboratory results Abnormal [facility] PROTHROMBIN TIMEon INR Coag (PPP) [Relative time] 1.6 {INR} High 0.9-1.1 [facility] Comment on above: Result Comment: Timothy [...] Myocardial Infarction Performed By: #### Weston AB325, [id number] ####Senior Vice President & General Counsel: VELMA VALADEZ ([phone])[facility])[address] [place] [address] PT Coag (PPP) [Time] 17.7 s High 9.0-12.0 [facility] Comment on above: Performed By: #### Weston [id number], [id number] ####Senior Vice President & General Counsel: VELMA VALADEZ ([phone])[facility] ([facility])[address] [place] [address] PT Coag (Bld) [Time]on 04-10 INR Coag [...] Infarction Progress Noteon 04-10-2024 Progress Note Normal [facility] [employer] [place] [facility] Progress Note Nutrition update completed. Chart reviewed. Patient to be monitored and followed by the diet communication technician. FADI Farrar Normal [facility] [employer] [facility] Progress Note Normal [facility] [employer] [facility] [facility] aPTT Coag (Bld) [Time]on aPTT Coag (PPP) [...] Coag (Bld) [Time] 58.9 s High 20.0-30.5 [facility] Comment on above: Result Comment: ORDE R COMMENTS:NOTE: The therapeutic time for Heparin anticoagulation, based on Xa activity inhibition, is an APTT of 46-80 seconds. Performed By: #### L [id number] ####Senior Vice President & General Counsel: VELMA VALADEZ ([phone])[address] aPTT Coag (Bld) [Time] 64.6 s High 20.0-30.5 [facility] Comment on above: Result Comment: BUBBA Garcia COMMENTS:NOTE: The therapeutic time for Heparin anticoagulation, based on Xa activity inhibition, is an APTT of 46-80 seconds. Performed By: #### L [id number] ####Senior Vice President & General Counsel: VELMA VALADEZ ([phone])[address] aPTT Coag (Bld) [Time] 82.3 s High 20.0-30.5 [facility] Comment on above: Result Comment: BUBBA Garcia COMMENTS:NOTE: The therapeutic time for Heparin anticoagulation, based on Xa activity inhibition, is an APTT of 46-80 seconds. Performed By: #### L [id number], [id number] ####Senior Vice President & General Counsel: VELMA VALADEZ ([phone])[address] BASIC METABOLIC PANELon 03-19 Anion gap [Moles/Vol] 5 mmol/L Normal 3-13 [facility] Comment on above: Performed By: #### L [id number] ####Senior Vice President & General Counsel: VELMA [phone])[facility] [place] [address] Calcium [Mass/Vol] 8.9 mg/dL Normal 8.4-10.4 [facility] Comment on above: Performed By: #### L [id number] ####Senior Vice President & General Counsel: VELMA VALADEZ ([phone])[facility] [place] [address] [place] Chloride [Moles/Vol] 116 mmol/L High 98-107 [facility] Comment on above: Performed By: #### L [id number] ####Senior Vice President & General Counsel: VELMA VALADEZ ([phone])[facility] [place] [address] CO2 [Moles/Vol] 16 mmol/L Low 22-30 [facility] Comment on above: Performed By: #### L [id number] ####Senior Vice President & General Counsel: VELMA VALADEZ ([phone])[facility] ([facility])[address] [place] [address] Creatinine [Mass/Vol] 0.93 mg/dL Normal 0.52-1.04 [facility] Comment on above: Performed By: #### L [id number] ####Senior Vice President & General Counsel: VELMA VALADEZ ([phone])[facility] ([facility])[address] [place] [address] [place] GLOMERULAR FILTRATION RATE ML/MIN/1.73 SQ M.PREDICTED 60.7 mL/min/1.73m*2 Normal >60.0 [facility] Comment on above: Result Comment: Calc ulation based on the Chronic Kidney Disease Epidemiology Collaboration (CKD-EPI) equation refit without adjustment for race Performed By: #### L [id number] ####Senior Vice President & General Counsel: VELMA VALADEZ ([phone])[facility] ([facility])[address] [place] [address] [place] Glucose [Mass/Vol] 119 mg/dL High 70-100 [facility] Comment on above: Performed By: #### L [id number] ####Senior Vice President & General Counsel: VELMA VALADEZ ([phone])[facility])[address] [place] [address] Potassium [Moles/Vol] 4.4 mmol/L Normal 3.5-5.1 [facility] Comment on above: Performed By: #### L [id number] ####Senior Vice President & General Counsel: VELMA VALADEZ ([phone])[facility] ([facility])[address] [place] [address] Sodium [Moles/Vol] 136 mmol/L Normal 135-145 [facility] Comment on above: Performed By: #### L [id number] ####Senior Vice President & General Counsel: VELMA VALADEZ ([phone])[facility] ([facility])[address] [place] [address] Urea nitrogen [Mass/Vol] 16 mg/dL Normal 7-17 [facility] Comment on above: Performed By: #### L [id number] ####Senior Vice President & General Counsel: VELMA VALADEZ ([phone])[facility])[address] [place] [address] Basic metabolic 1998 panelon 04-09-2024 Anion gap [facility] CARECOORDon 04-09-2024 [place]ORD Normal [facility] [...] 9.0 g/dL Low 11.7 - 16.0 g/dL [facility] Immature granulocytes (Bld) [#/Vol] 0.0 10*3/uL NINF - 0.1 10*3/uL [facility] Immature granulocytes/100 WBC (Bld) 0.4 % 0.0 - 2.0 % [facility] Interpretation and review of laboratory results Abnormal [facility] Lymphocytes (Bld) [#/Vol] 2.2 10*3/uL 1.0 - 4.3 10*3/uL [facility] Lymphocytes/100 WBC (Bld) 31.2 % 15.0 - 45.0 % [facility] MCH (RBC) [Entitic mass] 29.8 pg 26.0 - 34.0 pg [facility] MCHC (RBC) [Mass/Vol] 31.9 % 30.5 - 36.0 % [facility] MCV (RBC) [Entitic vol] 93.4 fL 77.0 - 99.0 fL [facility] Monocytes (Bld) [#/Vol] 0.7 10*3/uL 0.0 [...] vol] 10.2 fL 9.0 - 12.7 fL [facility] Platelets (Bld) [#/Vol] 235 10*3/uL 140 - 440 10*3/uL [facility] RBC (Bld) [#/Vol] 3.02 10*6/uL Low 3.80 - 5.2 0 10*6/uL [facility] WBC (Bld) [#/Vol] 6.9 10*3/uL 3.6 - 10.7 10*3/uL [facility] CBC WITH AUTO DIFFERENTIALon 04-09-2024 Basophils (Bld) [#/Vol] 0.0 10*3/uL Normal 0.0-0.2 [facility] Comment on above: Performed By: #### L [id number] ####Senior Vice President & General Counsel: VELMA VALADEZ ([phone])[facility])[address] [place] [address] Basophils/100 WBC (Bld) 0.6 % Normal 0.0-2.0 [facility] Comment on above: Performed By: #### L [id number] ####Senior Vice President & General Counsel: VELMA VALADEZ ([phone])[facility] ([facility])[address] [place] [address] Eosinophils (Bld) [#/Vol] 0.1 10*3/uL Normal 0.0-0.5 [facility] Comment on above: Performed By: #### L [id number] ####Senior Vice President & General Counsel: VELMA VALADEZ ([phone])[facility])[address] [place] [address] Eosinophils/100 WBC (Bld) 0.9 % Normal 0.0-6.0 [facility] Comment on above: Performed By: #### L [id number] ####Senior Vice President & General Counsel: VELMA VALADEZ ([phone])[facility])[address] [place] [address] Erythrocyte distribution width (RBC) [Ratio] 14.8 % Normal 11.5-15.0 [facility] Comment on above: Performed By: #### L [id number] ####Senior Vice President & General Counsel: VELMA VALADEZ ([phone])[facility])[address] [place] [address] Hematocrit (Bld) [Volume fraction] 28.2 % Low 35.0-47.0 [facility] Comment on above: Performed By: #### L [id number] ####Senior Vice President & General Counsel: VELMA VALADEZ ([phone])[address] Hemoglobin (Bld) [Mass/Vol] 9.0 g/dL Low 11.7-16.0 [facility] Comment on above: Performed By: #### L [id number] ####Senior Vice President & General Counsel: VELMA VALADEZ ([phone])[facility])[address] [place] [address] IMMATURE GRANS % 0.4 % Normal 0.0-2.[address] [facility] Comment on above: Performed By: #### L [id number] ####Senior Vice President & General Counsel: VELMA VALADEZ ([phone])[address] IMMATURE GRANS ABSOLUTE 0.0 10*3/uL Normal <0.1 [facility] Comment on above: Performed By: #### L [id number] ####Senior Vice President & General Counsel: VELMA VALADEZ ([phone])[facility])[address] [place] [address] Lymphocytes (Bld) [#/Vol] 2.2 10*3/uL Normal 1.0-4.3 [facility] Comment on above: Performed By: #### L [id number] ####Senior Vice President & General Counsel: VELMA VALADEZ ([phone])[facility])[address] [place] [address] Lymphocytes/100 WBC (Bld) 31.2 % Normal 15.0-45.0 [facility] Comment on above: Performed By: #### L [id number] ####Senior Vice President & General Counsel: VELMA VALADEZ ([phone])[facility])[address] [place] [address] MCH (RBC) [Entitic mass] 29.8 pg Normal 26.0-34.0 [facility] Comment on above: Performed By: #### L [id number] ####Senior Vice President & General Counsel: VELMA VALADEZ ([phone])[facility])[address] [place] [address] MCHC 31.9 % Normal 30.5-36.0 [facility] Comment on above: Performed By: #### L [id number] ####Senior Vice President & General Counsel: VELMA VALADEZ ([phone])[facility] ([facility])[address] [place] [address] MCV (RBC) [Entitic vol] 93.4 fL Normal 77.0-99.0 [facility] Comment on above: Performed By: #### L [id number] ####Senior Vice President & General Counsel: VELMA VALADEZ ([phone])[facility])[address] [place] [address] Monocytes (Bld) [#/Vol] 0.7 10*3/uL Normal 0.0-0.9 [facility] Comment on above: Performed By: #### L [id number] ####Senior Vice President & General Counsel: VELMA VALADEZ ([phone])[facility])[address] [place] [address] Monocytes/100 WBC (Bld) 10.7 % Normal 5.0-13.0 [facility] Comment on above: Performed By: #### L [id number] ####Senior Vice President & General Counsel: VELMA VALADEZ ([phone])[facility])[address] [place] [address] NEUTROPHILS ABSOLUTE 3.9 10*3/uL Normal 1.8-7.5 [facility] Comment on above: Performed By: #### L [id number] ####Senior Vice President & General Counsel: VELMA VALADEZ ([phone])[facility] ([facility])[address] [place] [address] Neutrophils/100 WBC (Bld) 56.2 % Normal 38.0-82.0 [facility] Comment on above: Performed By: #### L [id number] ####Senior Vice President & General Counsel: VELMA VALADEZ ([phone])[facility] ([facility])[address] [place] [address] NRBC 0.0 /100 WBCs Normal 0.0-2.0 [facility] Comment on above: Performed By: #### L [id number] ####Senior Vice President & General Counsel: VELMA VALADEZ ([phone])[facility] ([facility])[address] [place] [address] Platelet mean volume (Bld) [Entitic vol] 10.2 fL Normal 9.0-12.7 [facility] Comment on above: Performed By: #### L [id number] ####Senior Vice President & General Counsel: VELMA VALADEZ ([phone])[facility] ([facility])[address] [place] [address] [place] Platelets (Bld) [#/Vol] 235 10*3/uL Normal 140-440 [facility] Comment on above: Performed By: #### L [id number] ####Senior Vice President & General Counsel: VELMA VALADEZ ([phone])[facility] ([facility])[address] [place] [address] RBC (Bld) [#/Vol] 3.02 10*6/uL Low 3.80-5.20 [facility] Comment on above: Performed By: #### L [id number] ####Senior Vice President & General Counsel: VELMA VALADEZ ([phone])[facility] ([facility])[address] [place] [address] WBC (Bld) [#/Vol] 6.9 10*3/uL Normal 3.6-10.7 [facility] Comment on above: Performed By: #### L [id number] ####Senior Vice President & General Counsel: VELMA VALADEZ ([phone])[facility])[address] [place] [address] Laboratory - Coagulationon 0 04-09-2024 PT Coag (Bld) [Time] 13.8 s High 9.0 - 1 2.0 s [facility] No Panel Informationon 04-09 Interpretation and review of laboratory results Abnormal [facility] PROTHROMBIN TIMEon INR Coag (PPP) [Relative time] 1.2 {INR} High 0.9-1.1 [facility] Comment on above: Result Comment: Timothy [...] Myocardial Infarction Performed By: #### Weston AB320, [id number] ####Senior Vice President & General Counsel: VELMA VALADEZ ([phone])[facility])[address] [place] [address] PT Coag (PPP) [Time] 13.8 s High 9.0-12.0 [facility] Comment on above: Performed By: #### Weston AB320, [id number] ####Senior Vice President & General Counsel: VELMA VALADEZ ([phone])[facility])[address] [place] [address] PT Coag (Bld) [Time]on 04-09 INR Coag [...] Infarction Progress Noteon 04-09-2024 Progress Note Normal [facility] Progress Note Normal [facility] XR CHEST 1 VIEWon 04-09-2024 XR CHEST 1 VIEW Normal [facility] XR Chest Single viewon 04-09 Mild cardiomegaly and pulmonary venous congestion with small pleural effusions. Report Dictated on Electronically Signed By: Di Leggett MD Electronically Signed Date/Time: 04/09/2024 1:42 PM EDT [facility] Patient Name: MEL CARVER RD : [...] the left shoulder. No acute osseous findings. [facility] Di Leggett M D - 04/09/2024 [...] [facility] Radiology Study observation (narrative) [facility] XR Chest Single viewOrdered By: Di [...] Coag (Bld) [Time] 51.5 s High 20.0-30.5 [facility] Comment on above: Result Comment: BUBBA Garcia COMMENTS:NOTE: The therapeutic time for Heparin anticoagulation, based on Xa activity inhibition, is an APTT of 46-80 seconds. Performed By: #### L [id number] ####Senior Vice President & General Counsel: VELMA VALADEZ ([phone])[facility] ([facility])[address] [place] [address] aPTT Coag (Bld) [Time] 59.8 s High 20.0-30.5 [facility] Comment on above: Result Comment: BUBBA Garcia COMMENTS:NOTE: The therapeutic time for Heparin anticoagulation, based on Xa activity inhibition, is an APTT of 46-80 seconds. Performed By: #### L [id number] ####Senior Vice President & General Counsel: VELMA VALADEZ ([phone])[facility] [place] [address] aPTT Coag (Bld) [Time] 41.4 s High 20.0-30.5 [facility] Comment on above: Result Comment: BUBBA Garcia COMMENTS:NOTE: The therapeutic time for Heparin anticoagulation, based on Xa activity inhibition, is an APTT of 46-80 seconds. Performed By: #### L AB325, [id number] ####Senior Vice President & General Counsel: VELMA VALADEZ ([phone])[facility] ([facility])[address] [place] [address] BASIC METABOLIC PANELon 09-2 Anion gap [Moles/Vol] 5 mmol/L Normal 3-13 [facility] Comment on above: Performed By: #### L [id number] ####Senior Vice President & General Counsel: VELMA VALADEZ ([phone])[facility] ([facility])[address] [place] [address] Calcium [Mass/Vol] 8.9 mg/dL Normal 8.4-10.4 [facility] Comment on above: Performed By: #### L [id number] ####Senior Vice President & General Counsel: VELMA VALADEZ ([phone])[facility] ([facility])[address] [place] [address] Chloride [Moles/Vol] 113 mmol/L High 98-107 [facility] Comment on above: Performed By: #### L AB15 ####Senior Vice President & General Counsel: VELMA VALADEZ ([phone])[facility] ([facility])[address] [place] [address] CO2 [Moles/Vol] 17 mmol/L Low 22-30 [facility] Comment on above: Performed By: #### L AB15 ####Senior Vice President & General Counsel: VELMA [phone])[facility])[address] [place] [address] Creatinine [Mass/Vol] 0.98 mg/dL Normal 0.52-1.04 [facility] Comment on above: Performed By: #### L AB15 ####Senior Vice President & General Counsel: VELMA VALADEZ ([phone])[facility] [place] [address] GLOMERULAR FILTRATION RATE ML/MIN/1.73 SQ M.PREDICTED 57.0 mL/min/1.73m*2 Low >60.0 [facility] Comment on above: Result Comment: Calc ulation based on the Chronic Kidney Disease Epidemiology Collaboration (CKD-EPI) equation refit without adjustment for race Performed By: #### L AB15 ####Senior Vice President & General Counsel: VELMA VALADEZ ([phone])[facility] ([facility])[address] [place] [address] Glucose [Mass/Vol] 116 mg/dL High 70-100 [facility] Comment on above: Performed By: #### L AB15 ####Senior Vice President & General Counsel: VELMA VALADEZ ([phone])[facility] ([facility])[address] [place] [address] Potassium [Moles/Vol] 4.5 mmol/L Normal 3.5-5.1 [facility] Comment on above: Performed By: #### L AB15 ####Senior Vice President & General Counsel: VELMA VALADEZ ([phone])[facility])[address] [place] [address] Sodium [Moles/Vol] 135 mmol/L Normal 135-145 [facility] Comment on above: Performed By: #### L AB15 ####Senior Vice President & General Counsel: VELMA VALADEZ ([phone])[facility] ([facility])[address] [place] [address] Urea nitrogen [Mass/Vol] 18 mg/dL High 7-17 [facility] Comment on above: Performed By: #### L [id number] ####Senior Vice President & General Counsel: VELMA VALADEZ ([phone])[facility] ([facility])[address] [place] [address] Basic metabolic 1998 panelon 04-08-2024 Anion gap [...] [#/Vol] 0.0 10*3/uL NINF - 0.1 10*3/uL [facility] [employer] Immature granulocytes/100 WBC (Bld) 0.4 % 0.0 [...] [#/Vol] 7.5 10*3/uL 3.6 - 10.7 10*3/uL [facility] CBC WITH AUTO DIFFERENTIALon 04-08-2024 Basophils (Bld) [#/Vol] 0.0 10*3/uL Normal 0.0-0.2 [facility] Comment on above: Performed By: #### L [id number] ####Senior Vice President & General Counsel: VELMA VALADEZ ([phone])[facility])[address] [place] [address] Basophils/100 WBC (Bld) 0.5 % Normal 0.0-2.0 [facility] Comment on above: Performed By: #### L [id number] ####Senior Vice President & General Counsel: VELMA VALADEZ ([phone])[facility])[address] [place] [address] Eosinophils (Bld) [#/Vol] 0.1 10*3/uL Normal 0.0-0.5 [facility] Comment on above: Performed By: #### L [id number] ####Senior Vice President & General Counsel: VELMA VALADEZ ([phone])[facility])[address] [place] [address] Eosinophils/100 WBC (Bld) 0.9 % Normal 0.0-6.0 [facility] Comment on above: Performed By: #### L [id number] ####Senior Vice President & General Counsel: VELMA VALADEZ ([phone])[facility])[address] [place] [address] Erythrocyte distribution width (RBC) [Ratio] 14.8 % Normal 11.5-15.0 [facility] Comment on above: Performed By: #### L [id number] ####Senior Vice President & General Counsel: VELMA VALADEZ ([phone])[facility])[address] [place] [address] Hematocrit (Bld) [Volume fraction] 27.0 % Low 35.0-47.0 [facility] Comment on above: Performed By: #### L [id number] ####Senior Vice President & General Counsel: VELMA VALADEZ ([phone])[address] Hemoglobin (Bld) [Mass/Vol] 8.6 g/dL Low 11.7-16.0 [facility] Comment on above: Performed By: #### L [id number] ####Senior Vice President & General Counsel: VELMA [phone])[facility] ([facility])[address] [place] [address] IMMATURE GRANS % 0.4 % Normal 0.0-2.0 [facility] Comment on above: Performed By: #### L [id number] ####Senior Vice President & General Counsel: VELMA VALADEZ ([phone])[facility])[address] [place] [address] IMMATURE GRANS ABSOLUTE 0.0 10*3/uL Normal <0.1 [facility] Comment on above: Performed By: #### L [id number] ####Senior Vice President & General Counsel: VELMA VALADEZ ([phone])[facility])[address] [place] [address] Lymphocytes (Bld) [#/Vol] 1.7 10*3/uL Normal 1.0-4.3 [facility] Comment on above: Performed By: #### L [id number] ####Senior Vice President & General Counsel: VELMA VALADEZ ([phone])[facility])[address] [place] [address] Lymphocytes/100 WBC (Bld) 23.3 % Normal 15.0-45.0 [facility] Comment on above: Performed By: #### L [id number] ####Senior Vice President & General Counsel: VELMA VALADEZ ([phone])[facility])[address] [place] [address] MCH (RBC) [Entitic mass] 30.2 pg Normal 26.0-34.0 [facility] Comment on above: Performed By: #### L [id number] ####Senior Vice President & General Counsel: VELMA VALADEZ ([phone])[facility])[address] [place] [address] MCHC 31.9 % Normal 30.5-36.0 [facility] Comment on above: Performed By: #### L [id number] ####Senior Vice President & General Counsel: VELMA VALADEZ ([phone])[facility])[address] [place] [address] MCV (RBC) [Entitic vol] 94.7 fL Normal 77.0-99.0 [facility] Comment on above: Performed By: #### L [id number] ####Senior Vice President & General Counsel: VELMA VALADEZ ([phone])[facility])[address] [place] [address] Monocytes (Bld) [#/Vol] 0.8 10*3/uL Normal 0.0-0.9 [facility] Comment on above: Performed By: #### L [id number] ####Senior Vice President & General Counsel: VELMA VALADEZ ([phone])[facility] ([facility])[address] [place] [address] Monocytes/100 WBC (Bld) 10.2 % Normal 5.0-13.0 [facility] Comment on above: Performed By: #### L [id number] ####Senior Vice President & General Counsel: VELMA VALADEZ ([phone])[facility])[address] [place] [address] NEUTROPHILS ABSOLUTE 4.8 10*3/uL Normal 1.8-7.5 [facility] Comment on above: Performed By: #### L [id number] ####Senior Vice President & General Counsel: VELMA VALADEZ ([phone])[facility])[address] [place] [address] Neutrophils/100 WBC (Bld) 64.7 % Normal 38.0-82.0 [facility] Comment on above: Performed By: #### L [id number] ####Senior Vice President & General Counsel: VELMA VALADEZ ([phone])[facility] ([facility])[address] [place] [address] NRBC 0.0 /100 WBCs Normal 0.0-2.0 [facility] Comment on above: Performed By: #### L [id number] ####Senior Vice President & General Counsel: VELMA VALADEZ ([phone])[facility])[address] [place] [address] Platelet mean volume (Bld) [Entitic vol] 10.1 fL Normal 9.0-12.7 [facility] Comment on above: Performed By: #### L [id number] ####Senior Vice President & General Counsel: VELMA VALADEZ ([phone])[facility] ([facility])[address] [place] [address] Platelets (Bld) [#/Vol] 223 10*3/uL Normal 140-440 [facility] Comment on above: Performed By: #### L [id number] ####Senior Vice President & General Counsel: VELMA VALADEZ ([phone])[facility] ([facility])[address] [place] [address] RBC (Bld) [#/Vol] 2.85 10*6/uL Low 3.80-5.20 [facility] Comment on above: Performed By: #### L [id number] ####Senior Vice President & General Counsel: VELMA VALADEZ ([phone])[facility] ([facility])[address] [place] [address] WBC (Bld) [#/Vol] 7.5 10*3/uL Normal 3.6-10.7 [facility] Comment on above: Performed By: #### L [id number] ####Senior Vice President & General Counsel: VELMA VALADEZ ([phone])[facility] ([facility])[address] [place] [address] IDNon 04-08-2024 IDN Progressing Normal [facility] Laboratory - Coagulationon 0 04-08-2024 PT Coag (Bld) [Time] 11.2 s 9.0 - 1 2.0 s [facility] No Panel Informationon 04-08 [facility] PROTHROMBIN TIMEon INR Coag (PPP) [Relative time] 1.0 {INR} Normal 0.9-1.1 [facility] Comment on above: Result Comment: Timothy [...] Myocardial Infarction Performed By: #### L AB325, [id number] ####Senior Vice President & General Counsel: VELMA VALADEZ ([phone])[facility] ([facility])[address] [place] [address] PT Coag (PPP) [Time] 11.2 s Normal 9.0-12.0 [facility] Comment on above: Performed By: #### L AB325, [id number] ####Senior Vice President & General Counsel: VELMA VALADEZ ([phone])[facility] [place] [address] PT Coag (Bld) [Time]on 04-08 INR Coag [...] Hospital Progress Noteon 04-08-2024 Progress Note Normal [facility] Progress Note Normal [facility] aPTT Coag (Bld) [Time]on aPTT Coag [...] Coag (Bld) [Time] 54.7 s High 20.0-30.5 [facility] Comment on above: Result Comment: BUBBA Garcia COMMENTS:NOTE: The therapeutic time for Heparin anticoagulation, based on Xa activity inhibition, is an APTT of 46-80 seconds. Performed By: #### L [id number] ####Senior Vice President & General Counsel: VELMA VALADEZ ([phone])[facility])[address] [place] [address] aPTT Coag (Bld) [Time] 77.7 s High 20.0-30.5 [facility] Comment on above: Result Comment: BUBBA Garcia COMMENTS:NOTE: The therapeutic time for Heparin anticoagulation, based on Xa activity inhibition, is an APTT of 46-80 seconds. Performed By: #### L AB325, [id number] ####Senior Vice President & General Counsel: VELMA VALADEZ ([phone])[facility])[address] [place] [address] BASIC METABOLIC PANELon 03-19 Anion gap [Moles/Vol] 4 mmol/L Normal 3-13 [facility] Comment on above: Performed By: #### L [id number] ####Senior Vice President & General Counsel: VELMA VALADEZ ([phone])[facility] ([facility])[address] [place] [address] Calcium [Mass/Vol] 8.8 mg/dL Normal 8.4-10.4 [facility] Comment on above: Performed By: #### L [id number] ####Senior Vice President & General Counsel: VELMA VALADEZ ([phone])[facility])[address] [place] [address] Chloride [Moles/Vol] 115 mmol/L High 98-107 [facility] Comment on above: Performed By: #### L [id number] ####Senior Vice President & General Counsel: VELMA VALADEZ ([phone])[facility] ([facility])[address] [place] [address] CO2 [Moles/Vol] 17 mmol/L Low 22-30 [facility] Comment on above: Performed By: #### L [id number] ####Senior Vice President & General Counsel: VELMA VALADEZ ([phone])[facility] ([facility])[address] [place] [address] Creatinine [Mass/Vol] 0.90 mg/dL Normal 0.52-1.04 [facility] Comment on above: Performed By: #### L [id number] ####Senior Vice President & General Counsel: VELMA VALADEZ ([phone])[facility] ([facility])[address] [place] [address] GLOMERULAR FILTRATION RATE ML/MIN/1.73 SQ M.PREDICTED 63.2 mL/min/1.73m*2 Normal >60.0 [facility] Comment on above: Result Comment: Calc ulation based on the Chronic Kidney Disease Epidemiology Collaboration (CKD-EPI) equation refit without adjustment for race Performed By: #### L [id number] ####Senior Vice President & General Counsel: VELMA VALADEZ ([phone])[facility] ([facility])[address] [place] [address] Glucose [Mass/Vol] 139 mg/dL High 70-100 [facility] Comment on above: Performed By: #### L [id number] ####Senior Vice President & General Counsel: VELMA VALADEZ ([phone])[facility] ([facility])[address] [place] [address] [place] Potassium [Moles/Vol] 4.7 mmol/L Normal 3.5-5.1 [facility] Comment on above: Performed By: #### L [id number] ####Senior Vice President & General Counsel: VELMA VALADEZ ([phone])[facility] ([facility])[address] [place] [address] Sodium [Moles/Vol] 136 mmol/L Normal 135-145 [facility] Comment on above: Performed By: #### L [id number] ####Senior Vice President & General Counsel: VELMA [id number])[facility] ([facility])[address] [place] [address] Urea nitrogen [Mass/Vol] 16 mg/dL Normal 7-17 [facility] Comment on above: Performed By: #### L [id number] ####Senior Vice President & General Counsel: VELMA VALADEZ ([phone])[facility] ([facility])[address] [place] [address] Basic metabolic 1998 panelon 04-07-2024 Anion gap [...] 8.6 g/dL Low 11.7 - 16.0 g/dL [facility] Immature granulocytes (Bld) [#/Vol] 0.0 10*3/uL NINF - 0.1 10*3/uL [facility] Immature granulocytes/100 WBC (Bld) 0.5 % [...] Nucleated RBC/100 WBC (Bld) [Ratio] 0.0 % [facility] Platelet mean volume (Bld) [Entitic vol] 10.5 fL 9.0 - 12.7 fL [facility] Platelets (Bld) [#/Vol] 202 10*3/uL 140 - 440 10*3/uL [facility] RBC (Bld) [#/Vol] 2.86 10*6/uL Low 3.80 - 5.2 0 10*6/uL [facility] WBC (Bld) [#/Vol] 4.0 10*3/uL 3.6 - 10.7 10*3/uL [facility] CBC WITH AUTO DIFFERENTIALon 04-07-2024 Basophils (Bld) [#/Vol] 0.0 10*3/uL Normal 0.0-0.2 [facility] Comment on above: Performed By: #### L [id number] ####Senior Vice President & General Counsel: VELMA VALADEZ ([phone])[facility])[address] [place] [address] Basophils/100 WBC (Bld) 0.2 % Normal 0.0-2.0 [facility] Comment on above: Performed By: #### L [id number] ####Senior Vice President & General Counsel: VELMA VALADEZ ([phone])[facility])[address] [place] [address] Eosinophils (Bld) [#/Vol] 0.0 10*3/uL Normal 0.0-0.5 [facility] Comment on above: Performed By: #### L [id number] ####Senior Vice President & General Counsel: VELMA VALADEZ ([phone])[facility] ([facility])[address] [place] [address] Eosinophils/100 WBC (Bld) 0.0 % Normal 0.0-6.0 [facility] Comment on above: Performed By: #### L [id number] ####Senior Vice President & General Counsel: VELMA VALADEZ ([phone])[facility])[address] [place] [address] Erythrocyte distribution width (RBC) [Ratio] 14.3 % Normal 11.5-15.0 [facility] Comment on above: Performed By: #### L [id number] ####Senior Vice President & General Counsel: VELMA VALADEZ ([phone])[facility])[address] [place] [address] Hematocrit (Bld) [Volume fraction] 27.0 % Low 35.0-47.0 [facility] Comment on above: Performed By: #### L [id number] ####Senior Vice President & General Counsel: VELMA [phone])[facility])[address] [place] [address] Hemoglobin (Bld) [Mass/Vol] 8.6 g/dL Low 11.7-16.0 [facility] Comment on above: Performed By: #### L [id number] ####Senior Vice President & General Counsel: VELMA VALADEZ ([phone])[facility])[address] [place] [address] IMMATURE GRANS % 0.5 % Normal 0.0-2.[address] [facility] Comment on above: Performed By: #### L [id number] ####Senior Vice President & General Counsel: VELMA VALADEZ ([phone])[facility])[address] [place] [address] IMMATURE GRANS ABSOLUTE 0.0 10*3/uL Normal <0.1 [facility] Comment on above: Performed By: #### L [id number] ####Senior Vice President & General Counsel: VELMA VALADEZ ([phone])[facility])[address] [place] [address] Lymphocytes (Bld) [#/Vol] 0.8 10*3/uL Low 1.0-4.3 [facility] Comment on above: Performed By: #### L [id number] ####Senior Vice President & General Counsel: VELMA VALADEZ ([phone])[facility])[address] [place] [address] Lymphocytes/100 WBC (Bld) 19.2 % Normal 15.0-45.0 [facility] Comment on above: Performed By: #### L [id number] ####Senior Vice President & General Counsel: VELMA VALADEZ ([phone])[facility])[address] [place] [address] MCH (RBC) [Entitic mass] 30.1 pg Normal 26.0-34.0 [facility] Comment on above: Performed By: #### L [id number] ####Senior Vice President & General Counsel: VELMA VALADEZ ([phone])[facility])[address] [place] [address] MCHC 31.9 % Normal 30.5-36.0 [facility] Comment on above: Performed By: #### L [id number] ####Senior Vice President & General Counsel: VELMA VALADEZ ([phone])[facility])[address] [place] [address] MCV (RBC) [Entitic vol] 94.4 fL Normal 77.0-99.0 [facility] Comment on above: Performed By: #### L [id number] ####Senior Vice President & General Counsel: VELMA VALADEZ ([phone])[facility])[address] [place] [address] Monocytes (Bld) [#/Vol] 0.3 10*3/uL Normal 0.0-0.9 [facility] Comment on above: Performed By: #### L [id number] ####Senior Vice President & General Counsel: VELMA VALADEZ ([phone])[facility])[address] [place] [address] Monocytes/100 WBC (Bld) 7.5 % Normal 5.0-13.0 [facility] Comment on above: Performed By: #### L [id number] ####Senior Vice President & General Counsel: VELMA VALADEZ ([phone])[facility])[address] [place] [address] NEUTROPHILS ABSOLUTE 2.9 10*3/uL Normal 1.8-7.5 [facility] Comment on above: Performed By: #### L [id number] ####Senior Vice President & General Counsel: VELMA VALADEZ ([phone])[facility])[address] [place] [address] Neutrophils/100 WBC (Bld) 72.6 % Normal 38.0-82.0 [facility] Comment on above: Performed By: #### L [id number] ####Senior Vice President & General Counsel: VELMA VALADEZ ([phone])[facility])[address] [place] [address] NRBC 0.0 /100 WBCs Normal 0.0-2.0 [facility] Comment on above: Performed By: #### L [id number] ####Senior Vice President & General Counsel: VELMA VALADEZ ([phone])[facility] ([facility])[address] [place] [address] Platelet mean volume (Bld) [Entitic vol] 10.5 fL Normal 9.0-12.7 [facility] Comment on above: Performed By: #### L [id number] ####Senior Vice President & General Counsel: VELMA VALADEZ ([phone])[facility] ([facility])[address] [place] [address] Platelets (Bld) [#/Vol] 202 10*3/uL Normal 140-440 [facility] Comment on above: Performed By: #### L [id number] ####Senior Vice President & General Counsel: VELMA VALADEZ ([phone])[facility] ([facility])[address] [place] [address] RBC (Bld) [#/Vol] 2.86 10*6/uL Low 3.80-5.20 [facility] Comment on above: Performed By: #### L [id number] ####Senior Vice President & General Counsel: VELMA VALADEZ ([phone])[facility] ([facility])[address] [place] [address] WBC (Bld) [#/Vol] 4.0 10*3/uL Normal 3.6-10.7 [facility] Comment on above: Performed By: #### L [id number] ####Senior Vice President & General Counsel: VELMA VALADEZ ([phone])[facility] ([facility])[address] [place] [address] [place] IDNon 04-07-2024 IDN Normal [facility] Laboratory - Coagulationon 0 04-07-2024 PT Coag (Bld) [Time] 11.1 s 9.0 - 1 2.0 s [facility] No Panel Informationon 04-07 [facility] Nursing Noteon 04-07-2024 Nursing Note NO changes to hepari n infusion at this time. Normal [facility] PROTHROMBIN TIMEon INR Coag (PPP) [Relative time] 1.0 {INR} Normal 0.9-1.1 [facility] Comment on above: Result Comment: Timothy [...] Myocardial Infarction Performed By: #### [place] AB325, [id number] ####Senior Vice President & General Counsel: VELMA VALADEZ ([phone])[facility] ([facility])[address] [place] [address] PT Coag (PPP) [Time] 11.1 s Normal 9.0-12.0 [facility] Comment on above: Performed By: #### [place]on AB325, [id number] ####Senior Vice President & General Counsel: VELMA VALADEZ ([phone])[facility] ([facility])[address] [place] [address] PT Coag (Bld) [Time]on 04-07 INR Coag [...] Hospital Progress Noteon 04-07-2024 Progress Note Normal [facility] Progress Note Normal [facility] Progress Note Normal [facility] aPTT Coag (Bld) [Time]on aPTT Coag [...] of 46-80 seconds. [facility] [id number] 04-06-2024 [id number] Normal [facility] APTTon 04-06-2024 aPTT Coag (Bld) [Time] 43.3 s High 20.0-30.5 [facility] Comment on above: Result Comment: BUBBA Garcia COMMENTS:NOTE: The therapeutic time for Heparin anticoagulation, based on Xa activity inhibition, is an APTT of 46-80 seconds. Performed By: #### L [id number] ####Senior Vice President & General Counsel: VELMA VALADEZ ([phone])[facility] ([facility])[address] [place] [address] aPTT Coag (Bld) [Time] 97.6 s High 20.0-30.5 [facility] Comment on above: Result Comment: BUBBA Garcia COMMENTS:NOTE: The therapeutic time for Heparin anticoagulation, based on Xa activity inhibition, is an APTT of 46-80 seconds. Performed By: #### L [id number] ####Senior Vice President & General Counsel: VELMA VALADEZ ([phone])[facility] ([facility])[address] [place] [address] Anesthesia Noteon 04-06-2024 Anesthesia Note Normal [facility] Anesthesia Note Normal [facility] BASIC METABOLIC PANELon 03-19 Anion gap [Moles/Vol] 4 mmol/L Normal 3-13 [facility] Comment on above: Performed By: #### L [id number] ####Senior Vice President & General Counsel: VELMA VALADEZ ([phone])[facility] ([facility])[address] [place] [address] Calcium [Mass/Vol] 8.9 mg/dL Normal 8.4-10.4 [facility] Comment on above: Performed By: #### L [id number] ####Senior Vice President & General Counsel: VELMA VALADEZ ([phone])[facility] ([facility])[address] [place] [address] Chloride [Moles/Vol] 114 mmol/L High 98-107 [facility] Comment on above: Performed By: #### L [id number] ####Senior Vice President & General Counsel: VELMA VALADEZ ([phone])[facility] ([facility])[address] [place] [address] CO2 [Moles/Vol] 18 mmol/L Low 22-30 [facility] Comment on above: Performed By: #### L [id number] ####Senior Vice President & General Counsel: VELMA VALADEZ ([phone])[facility])[address] [place] [address] Creatinine [Mass/Vol] 0.96 mg/dL Normal 0.52-1.04 [facility] Comment on above: Performed By: #### L AB15 ####Senior Vice President & General Counsel: VELMA VALADEZ ([phone])[facility])[address] [place] [address] GLOMERULAR FILTRATION RATE ML/MIN/1.73 SQ M.PREDICTED 58.5 mL/min/1.73m*2 Low >60.0 [facility] Comment on above: Result Comment: Calc ulation based on the Chronic Kidney Disease Epidemiology Collaboration (CKD-EPI) equation refit without adjustment for race Performed By: #### L AB15 ####Senior Vice President & General Counsel: VELMA VALADEZ ([phone])[facility])[address] [place] [address] Glucose [Mass/Vol] 97 mg/dL Normal 70-100 [facility] Comment on above: Performed By: #### L [id number] ####Senior Vice President & General Counsel: VELMA VALADEZ ([phone])[facility])[address] [place] [address] Potassium [Moles/Vol] 4.6 mmol/L Normal 3.5-5.1 [facility] Comment on above: Performed By: #### L AB15 ####Senior Vice President & General Counsel: VELMA [phone])[facility] ([facility])[address] [place] [address] Sodium [Moles/Vol] 135 mmol/L Normal 135-145 [facility] Comment on above: Performed By: #### L AB15 ####Senior Vice President & General Counsel: VELMA VALADEZ ([id number])[facility] ([facility])[address] [place] [address] Urea nitrogen [Mass/Vol] 17 mg/dL Normal 7-17 [facility] Comment on above: Performed By: #### L [id number] ####Senior Vice President & General Counsel: VELMA VALADEZ ([phone])[facility] ([facility])[address] [place] [address] BLOOD TYPE AND SCREEN GELon 04-06-2024 ABO GROUPING AB Normal [facility] Comment on above: Performed By: #### L [id number] ####Senior Vice President & General Counsel: VELMA VALADEZ ([phone])[facility] BLOOD [facility] ([facility])[address] [place] [address] RH TYPE IN BLOOD Positive Normal [facility] Comment on above: Performed By: #### L [id number] ####Senior Vice President & General Counsel: VELMA VALADEZ ([phone])[facility] ([facility])[address] [place] [address] Basic metabolic 1998 panelon 04-06-2024 Anion gap [...] [facility] CARECOORDon 04-06-2024 CARECOORD Normal [facility] CARECOBAGLEY Normal [facility] CBC W Auto Differential pane l (Bld)on 04-06-2024 Basophils (Bld) [#/Vol] 0.1 10*3/uL 0.0 - 0.2 10*3/uL [facility] Basophils/100 WBC (Bld) 1.1 % 0.0 - 2.0 % [facility] Eosinophils (Bld) [#/Vol] 0.1 10*3/uL 0.0 - 0.5 10*3/uL [facility] Eosinophils/100 WBC (Bld) 2.7 % 0.0 - 6.0 % [facility] Erythrocyte distribution width (RBC) [Ratio] 14.3 % 11.5 - 15.0 % [facility] Hematocrit (Bld) [Volume fraction] 29.8 % Low 35.0 - 47.0 % [facility] [...] [#/Vol] 1.5 10*3/uL 1.0 - 4.3 10*3/uL [facility] Lymphocytes/100 WBC (Bld) 33.0 % 15.0 - 45.0 % [facility] MCH (RBC) [Entitic mass] 30.3 pg 26.0 - 34.0 pg [facility] MCHC (RBC) [Mass/Vol] 32.6 % 30.5 - 36.0 % [facility] MCV (RBC) [Entitic vol] 93.1 fL 77.0 - 99.0 fL [facility] Monocytes (Bld) [#/Vol] 0.5 10*3/uL 0.0 - 0.9 10*3/uL [facility] Monocytes/100 WBC (Bld) 10.5 % 5.0 - 13.0 % [facility] Neutrophils (Bld) [#/Vol] 2.4 10*3/uL 1.8 - 7.5 10*3/uL [facility] Neutrophils/100 WBC (Bld) 52.5 % 38.0 - 82.0 % [facility] Nucleated RBC/100 WBC (Bld) [Ratio] 0.0 % [facility] Platelet mean volume (Bld) [Entitic vol] 10.4 fL 9.0 - 12.7 fL [facility] Platelets (Bld) [#/Vol] 207 10*3/uL 140 - 440 10*3/uL [facility] RBC (Bld) [#/Vol] 3.20 10*6/uL Low 3.80 - 5.2 0 10*6/uL [facility] WBC (Bld) [#/Vol] 4.5 10*3/uL 3.6 - 10.7 10*3/uL [facility] CBC WITH AUTO DIFFERENTIALon 04-06-2024 Basophils (Bld) [#/Vol] 0.1 10*3/uL Normal 0.0-0.2 [facility] Comment on above: Performed By: #### L [id number] ####Senior Vice President & General Counsel: VELMA VALADEZ ([phone])[facility] ([address] Basophils/100 WBC (Bld) 1.1 % Normal 0.0-2.0 [facility] Comment on above: Performed By: #### L [id number] ####Senior Vice President & General Counsel: VELMA VALADEZ ([phone])[facility] [address] Eosinophils (Bld) [#/Vol] 0.1 10*3/uL Normal 0.0-0.5 [facility] Comment on above: Performed By: #### L [id number] ####Senior Vice President & General Counsel: VELMA VALADEZ ([phone])[facility])[address] [place] [address] Eosinophils/100 WBC (Bld) 2.7 % Normal 0.0-6.0 [facility] Comment on above: Performed By: #### L [id number] ####Senior Vice President & General Counsel: VELMA VALADEZ ([phone])[address] Erythrocyte distribution width (RBC) [Ratio] 14.3 % Normal 11.5-15.0 [facility] Comment on above: Performed By: #### L [id number] ####Senior Vice President & General Counsel: VELMA VALADEZ ([phone])[facility])[address] [place] [address] Hematocrit (Bld) [Volume fraction] 29.8 % Low 35.0-47.0 [facility] Comment on above: Performed By: #### L [id number] ####Senior Vice President & General Counsel: VELMA VALADEZ ([phone])[address] Hemoglobin (Bld) [Mass/Vol] 9.7 g/dL Low 11.7-16.0 [facility] Comment on above: Performed By: #### L [id number] ####Senior Vice President & General Counsel: VELMA VALADEZ ([phone])[facility])[address] [place] [address] IMMATURE GRANS % 0.2 % Normal 0.0-2.[address] [facility] Comment on above: Performed By: #### L [id number] ####Senior Vice President & General Counsel: VELMA VALADEZ ([phone])[address] IMMATURE GRANS ABSOLUTE 0.0 10*3/uL Normal <0.1 [facility] Comment on above: Performed By: #### L [id number] ####Senior Vice President & General Counsel: VELMA VALADEZ ([phone])[facility])[address] [place] [address] Lymphocytes (Bld) [#/Vol] 1.5 10*3/uL Normal 1.0-4.3 [facility] Comment on above: Performed By: #### L [id number] ####Senior Vice President & General Counsel: VELMA VALADEZ ([phone])[facility])[address] [place] [address] Lymphocytes/100 WBC (Bld) 33.0 % Normal 15.0-45.0 [facility] Comment on above: Performed By: #### L [id number] ####Senior Vice President & General Counsel: VELMA VALADEZ ([phone])[facility])[address] [place] [address] MCH (RBC) [Entitic mass] 30.3 pg Normal 26.0-34.0 [facility] Comment on above: Performed By: #### L [id number] ####Senior Vice President & General Counsel: VELMA VALADEZ ([phone])[facility])[address] [place] [address] MCHC 32.6 % Normal 30.5-36.0 [facility] Comment on above: Performed By: #### L [id number] ####Senior Vice President & General Counsel: VELMA VALADEZ ([phone])[facility])[address] [place] [address] MCV (RBC) [Entitic vol] 93.1 fL Normal 77.0-99.0 [facility] Comment on above: Performed By: #### L [id number] ####Senior Vice President & General Counsel: VELMA VALADEZ ([phone])[facility])[address] [place] [address] Monocytes (Bld) [#/Vol] 0.5 10*3/uL Normal 0.0-0.9 [facility] Comment on above: Performed By: #### L [id number] ####Senior Vice President & General Counsel: VELMA VALADEZ ([id number])[facility] ([facility])[address] [place] [address] [place] Monocytes/100 WBC (Bld) 10.5 % Normal 5.0-13.0 [facility] Comment on above: Performed By: #### L [id number] ####Senior Vice President & General Counsel: VELMA VALADEZ ([phone])[facility] ([facility] C[facility])[address] [place] [address] NEUTROPHILS ABSOLUTE 2.4 10*3/uL Normal 1.8-7.5 [facility] Comment on above: Performed By: #### L [id number] ####Senior Vice President & General Counsel: VELMA VALADEZ ([phone])[facility] ([facility])[address] [place] [address] Neutrophils/100 WBC (Bld) 52.5 % Normal 38.0-82.0 [facility] Comment on above: Performed By: #### L [id number] ####Senior Vice President & General Counsel: VELMA VALADEZ ([phone])[facility] ([facility])[address] [place] [address] NRBC 0.0 /100 WBCs Normal 0.0-2.0 [facility] Comment on above: Performed By: #### L [id number] ####Senior Vice President & General Counsel: VELMA VALADEZ ([phone])[facility] ([facility])[address] [place] [address] Platelet mean volume (Bld) [Entitic vol] 10.4 fL Normal 9.0-12.7 [facility] Comment on above: Performed By: #### L [id number] ####Senior Vice President & General Counsel: VELMA VALADEZ ([phone])[facility] ([facility])[address] [place] [address] [place] Platelets (Bld) [#/Vol] 207 10*3/uL Normal 140-440 [facility] Comment on above: Performed By: #### L [id number] ####Senior Vice President & General Counsel: VELMA VALADEZ ([phone])[facility] ([facility])[address] [place] [address] RBC (Bld) [#/Vol] 3.20 10*6/uL Low 3.80-5.20 [facility] Comment on above: Performed By: #### L [id number] ####Senior Vice President & General Counsel: VELMA VALADEZ ([phone])[facility] ([facility])[address] [place] [address] WBC (Bld) [#/Vol] 4.5 10*3/uL Normal 3.6-10.7 [facility] Comment on above: Performed By: #### L [id number] ####Senior Vice President & General Counsel: VELMA VALADEZ ([phone])[facility] ([facility])[address] [place] [address] No Panel Informationon 04-06 There is no interpretation needed for this exam. IMAGING Nursing Noteon 04-06-2024 Nursing Note Patient report rader d to 4N RN and denies any further questions. Patient resting comfortably and no signs of distress. Per resident patient to lay flat for 2 hours and restart heparin GTT at 1215. Transport notified. Normal [facility] Op Noteon 04-06-2024 Op Note Normal [facility] Progress Noteon 04-06-2024 Progress Note [facility] Progress Note Normal [facility] Progress Note Normal [facility] aPTT Coag (Bld) [Time]on aPTT Coag [...] of surgery: 04/06/24 Pre-testing: inpatient CPT codes: 05864 ICD 10: I82.401 Post-op or OV: Adriane to schedule Reps: Selvin Elaine) notified 04/05/24 Normal [facility] APTTon 04-05-2024 aPTT Coag (Bld) [Time] 76.6 s High 20.0-30.5 [facility] Comment on above: Result Comment: BUBBA Garcia COMMENTS:NOTE: The therapeutic time for Heparin anticoagulation, based on Xa activity inhibition, is an APTT of 46-80 seconds. Performed By: #### L [id number], [id number] ####Senior Vice President & General Counsel: VELMA VALADEZ ([phone])[address] aPTT Coag (Bld) [Time] 69.9 s High 20.0-30.5 [facility] Comment on above: Result Comment: BUBBA R COMMENTS:NOTE: The therapeutic time for Heparin anticoagulation, based on Xa activity inhibition, is an APTT of 46-80 seconds. Performed By: #### L [id number] ####Senior Vice President & General Counsel: VELMA VALADEZ ([phone])[address] aPTT Coag (Bld) [Time] 88.8 s High 20.0-30.5 [facility] Comment on above: Result Comment: BUBBA Garcia COMMENTS:NOTE: The therapeutic time for Heparin anticoagulation, based on Xa activity inhibition, is an APTT of 46-80 seconds. Performed By: #### L [id number], [id number] ####Senior Vice President & General Counsel: VELMA VALADEZ ([phone])[facility])[address] [place] [address] aPTT Coag (Bld) [Time] 109.7 s High 20.0-30.5 [facility] Comment on above: Result Comment: BUBBA Garcia COMMENTS:NOTE: The therapeutic time for Heparin anticoagulation, based on Xa activity inhibition, is an APTT of 46-80 seconds. Performed By: #### L [id number] ####Senior Vice President & General Counsel: VELMA [phone])[facility] [place] [address] BASIC METABOLIC PANELon 09- Anion gap [Moles/Vol] 3 mmol/L Normal 3-13 [facility] Comment on above: Performed By: #### L AB15 ####Senior Vice President & General Counsel: VELMA VALADEZ ([phone])[facility] ([facility])[address] [place] [address] Calcium [Mass/Vol] 8.7 mg/dL Normal 8.4-10.4 [facility] Comment on above: Performed By: #### L [id number] ####Senior Vice President & General Counsel: VELMA VALADEZ ([phone])[facility] ([facility])[address] [place] [address] Chloride [Moles/Vol] 113 mmol/L High 98-107 [facility] Comment on above: Performed By: #### L AB15 ####Senior Vice President & General Counsel: VELMA VALADEZ ([phone])[facility] ([facility])[address] [place] [address] CO2 [Moles/Vol] 17 mmol/L Low 22-30 [facility] Comment on above: Performed By: #### L AB15 ####Senior Vice President & General Counsel: VELMA VALADEZ ([phone])[facility] ([facility])[address] [place] [address] Creatinine [Mass/Vol] 1.12 mg/dL High 0.52-1.04 [facility] Comment on above: Performed By: #### L AB15 ####Senior Vice President & General Counsel: VELMA VALADEZ ([phone])[facility] ([facility])[address] [place] [address] GLOMERULAR FILTRATION RATE ML/MIN/1.73 SQ M.PREDICTED 48.6 mL/min/1.73m*2 Low >60.0 [facility] Comment on above: Result Comment: Calc ulation based on the Chronic Kidney Disease Epidemiology Collaboration (CKD-EPI) equation refit without adjustment for race Performed By: #### L AB15 ####Senior Vice President & General Counsel: VELMA VALADEZ ([phone])[facility] [place] [address] Glucose [Mass/Vol] 102 mg/dL High 70-100 [facility] Comment on above: Performed By: #### L AB15 ####Senior Vice President & General Counsel: VELMA VALADEZ ([phone])[facility] ([facility])[address] [place] [address] Potassium [Moles/Vol] 4.8 mmol/L Normal 3.5-5.1 [facility] Comment on above: Performed By: #### L AB15 ####Senior Vice President & General Counsel: VELMA VALADEZ ([phone])[facility] ([facility])[address] [place] [address] Sodium [Moles/Vol] 133 mmol/L Low 135-145 [facility] Comment on above: Performed By: #### L AB15 ####Senior Vice President & General Counsel: VELMA VALADEZ ([phone])[facility] ([facility])[address] [place] [address] Urea nitrogen [Mass/Vol] 25 mg/dL High 7-17 [facility] Comment on above: Performed By: #### L AB15 ####Senior Vice President & General Counsel: VELMA VALADEZ ([phone])[facility])[address] [place] [address] Basic metabolic 1998 panelon 04-05-2024 Anion gap [facility] CAR[facility]OORDon 04-05-2024 [place]ORD Normal [facility] CBC W Auto Differential pane l [...] [facility] Immature granulocytes/100 WBC (Bld) 0.3 % 0.0 - 2.0 % [facility] Interpretation and review of laboratory results Abnormal [facility] Lymphocytes (Bld) [#/Vol] 1.7 10*3/uL 1.0 - 4.3 10*3/uL [facility] Lymphocytes/100 WBC (Bld) 27.5 % 15.0 [...] [#/Vol] 0.6 10*3/uL 0.0 - 0.9 10*3/uL [facility] Monocytes/100 WBC (Bld) 9.0 % 5.0 - 13.0 % [facility] Neutrophils (Bld) [#/Vol] 3.6 10*3/uL 1.8 - 7.5 10*3/uL [facility] Neutrophils/100 WBC (Bld) 59.3 % 38.0 - 82.0 % [facility] Nucleated RBC/100 WBC (Bld) [Ratio] 0.0 % [facility] Platelet mean volume (Bld) [Entitic vol] 10.1 fL 9.0 - 12.7 fL [facility] Platelets (Bld) [#/Vol] 204 10*3/uL 140 - 440 10*3/uL [facility] RBC (Bld) [#/Vol] 3.45 10*6/uL Low 3.80 - 5.2 0 10*6/uL [facility] WBC (Bld) [#/Vol] 6.1 10*3/uL 3.6 - 10.7 10*3/uL [facility] CBC WITH AUTO DIFFERENTIALon 04-05-2024 Basophils (Bld) [#/Vol] 0.1 10*3/uL Normal 0.0-0.2 [facility] Comment on above: Performed By: #### L [id number] ####Senior Vice President & General Counsel: VELMA VALADEZ ([phone])[address] Basophils/100 WBC (Bld) 1.0 % Normal 0.0-2.0 [facility] Comment on above: Performed By: #### L [id number] ####Senior Vice President & General Counsel: VELMA VALADEZ ([phone])[facility])[address] [place] [address] Eosinophils (Bld) [#/Vol] 0.2 10*3/uL Normal 0.0-0.5 [facility] Comment on above: Performed By: #### L [id number] ####Senior Vice President & General Counsel: VELMA VALADEZ ([phone])[facility])[address] [place] [address] Eosinophils/100 WBC (Bld) 2.9 % Normal 0.0-6.0 [facility] Comment on above: Performed By: #### L [id number] ####Senior Vice President & General Counsel: VELMA VALADEZ ([phone])[facility])[address] [place] [address] Erythrocyte distribution width (RBC) [Ratio] 14.4 % Normal 11.5-15.0 [facility] Comment on above: Performed By: #### L [id number] ####Senior Vice President & General Counsel: VELMA VALADEZ ([phone])[address] Hematocrit (Bld) [Volume fraction] 32.3 % Low 35.0-47.0 [facility] Comment on above: Performed By: #### L [id number] ####Senior Vice President & General Counsel: VELMA VALADEZ ([phone])[address] Hemoglobin (Bld) [Mass/Vol] 10.6 g/dL Low 11.7-16.0 [facility] Comment on above: Performed By: #### L [id number] ####Senior Vice President & General Counsel: VELMA VALADEZ ([phone])[facility])[address] [place] [address] IMMATURE GRANS % 0.3 % Normal 0.0-2.[address] [facility] Comment on above: Performed By: #### L [id number] ####Senior Vice President & General Counsel: VELMA VALADEZ ([phone])[address] IMMATURE GRANS ABSOLUTE 0.0 10*3/uL Normal <0.1 [facility] Comment on above: Performed By: #### L [id number] ####Senior Vice President & General Counsel: VELMA VALADEZ ([phone])[facility])[address] [place] [address] Lymphocytes (Bld) [#/Vol] 1.7 10*3/uL Normal 1.0-4.3 [facility] Comment on above: Performed By: #### L [id number] ####Senior Vice President & General Counsel: VELMA VALADEZ ([phone])[facility] ([facility])[address] [place] [address] Lymphocytes/100 WBC (Bld) 27.5 % Normal 15.0-45.0 [facility] Comment on above: Performed By: #### L [id number] ####Senior Vice President & General Counsel: VELMA VALADEZ ([phone])[facility] ([facility])[address] [place] [address] MCH (RBC) [Entitic mass] 30.7 pg Normal 26.0-34.0 [facility] Comment on above: Performed By: #### L [id number] ####Senior Vice President & General Counsel: VELMA VALADEZ ([phone])[facility])[address] [place] [address] MCHC 32.8 % Normal 30.5-36.0 [facility] Comment on above: Performed By: #### L [id number] ####Senior Vice President & General Counsel: VELMA VALADEZ ([phone])[facility] ([facility])[address] [place] [address] MCV (RBC) [Entitic vol] 93.6 fL Normal 77.0-99.0 [facility] Comment on above: Performed By: #### L [id number] ####Senior Vice President & General Counsel: VELMA VALADEZ ([phone])[facility] ([facility])[address] [place] [address] Monocytes (Bld) [#/Vol] 0.6 10*3/uL Normal 0.0-0.9 [facility] Comment on above: Performed By: #### L [id number] ####Senior Vice President & General Counsel: VELMA VALADEZ ([phone])[facility])[address] [place] [address] Monocytes/100 WBC (Bld) 9.0 % Normal 5.0-13.0 [facility] Comment on above: Performed By: #### L [id number] ####Senior Vice President & General Counsel: VELMA VALADEZ ([phone])[facility] ([facility])[address] [place] [address] NEUTROPHILS ABSOLUTE 3.6 10*3/uL Normal 1.8-7.5 [facility] Comment on above: Performed By: #### L [id number] ####Senior Vice President & General Counsel: VELMA VALADEZ ([phone])[facility] ([facility])[address] [place] [address] Neutrophils/100 WBC (Bld) 59.3 % Normal 38.0-82.0 [facility] Comment on above: Performed By: #### L [id number] ####Senior Vice President & General Counsel: VELMA VALADEZ ([phone])[facility] ([facility])[address] [place] [address] NRBC 0.0 /100 WBCs Normal 0.0-2.0 [facility] Comment on above: Performed By: #### L [id number] ####Senior Vice President & General Counsel: VELMA VALADEZ ([phone])[facility] ([facility])[address] [place] [address] Platelet mean volume (Bld) [Entitic vol] 10.1 fL Normal 9.0-12.7 [facility] Comment on above: Performed By: #### L [id number] ####Senior Vice President & General Counsel: VELMA VALADEZ ([phone])[facility] ([facility])[address] [place] [address] [place] Platelets (Bld) [#/Vol] 204 10*3/uL Normal 140-440 [facility] Comment on above: Performed By: #### L [id number] ####Senior Vice President & General Counsel: VELMA VALADEZ ([phone])[facility] ([facility])[address] [place] [address] RBC (Bld) [#/Vol] 3.45 10*6/uL Low 3.80-5.20 [facility] Comment on above: Performed By: #### L [id number] ####Senior Vice President & General Counsel: VELMA VALADEZ ([phone])[facility])[address] [place] [address] WBC (Bld) [#/Vol] 6.1 10*3/uL Normal 3.6-10.7 [facility] Comment on above: Performed By: #### L [id number] ####Senior Vice President & General Counsel: VELMA VALADEZ ([phone])[facility] ([facility])[address] [place] [address] IDNon 04-05-2024 IDN The patient is Moderately Stable - Low risk of patient condition declining or worsening The patient's goals for the shift include met The clinical goals for the shift include met Normal [facility] Laboratory - Coagulationon 0 04-05-2024 PT Coag (Bld) [Time] 11.4 s 9.0 - 1 2.0 s [facility] PT Coag (Bld) [Time] 11.9 s 9.0 - 1 2.0 s [facility] No Panel Informationon 04-05 [facility] PROTHROMBIN TIMEon INR Coag (PPP) [Relative time] 1.0 {INR} Normal 0.9-1.1 [facility] Comment on above: Performed By: #### L AB325, [id number] ####Senior Vice President & General Counsel: VELMA VALADEZ ([phone])[facility])[address] [place] [address] PT Coag (PPP) [Time] 11.4 s Normal 9.0-12.0 [facility] Comment on above: Performed By: #### L AB325, [id number] ####Senior Vice President & General Counsel: VELMA VALADEZ ([phone])[facility])[address] [place] [address] INR Coag (PPP) [Relative time] 1.1 {INR} Normal 0.9-1.1 [facility] Comment on above: Result Comment: Timothy [...] Myocardial Infarction Performed By: #### L AB320, [id number] ####Senior Vice President & General Counsel: VELMA VALADEZ ([phone])[facility])[address] [place] [address] PT Coag (PPP) [Time] 11.9 s Normal 9.0-12.0 [facility] Comment on above: Performed By: #### L [id number], [id number] ####Senior Vice President & General Counsel: VELMA VALADEZ ([phone])[facility] ([facility])[address] [place] [address] PT Coag (Bld) [Time]on 04-05 INR Coag [...] Hospital Progress Noteon 04-05-2024 Progress Note Normal [facility] Progress Note Nutrition rescreen completed. Chart reviewed. Patient to be monitored and followed by the diet communication technician. FADI Harmon Normal [facility] Progress Note Normal [facility] Progress Note Normal [facility] aPTT Coag (Bld) [Time]on aPTT Coag [...] of 46-80 seconds. [facility] [id number] 04-04-2024 [id number] Normal [facility] [id number] [facility] APTTon 04-04-2024 aPTT Coag (Bld) [Time] 81.8 s High 20.0-30.5 [facility] Comment on above: Result Comment: BUBBA Garcia COMMENTS:NOTE: The therapeutic time for Heparin anticoagulation, based on Xa activity inhibition, is an APTT of 46-80 seconds. Performed By: #### L [id number] ####Senior Vice President & General Counsel: VELMA VALADEZ ([phone])[address] aPTT Coag (Bld) [Time] 81.4 s High 20.0-30.5 [facility] Comment on above: Result Comment: BUBBA Garcia COMMENTS:NOTE: The therapeutic time for Heparin anticoagulation, based on Xa activity inhibition, is an APTT of 46-80 seconds. Performed By: #### L [id number] ####Senior Vice President & General Counsel: VELMA VALADEZ ([phone])[facility] ([facility])[address] [place] [address] aPTT Coag (Bld) [Time] 132.2 s Critically high 20.0-30. 5 [facility] Comment on above: Result Comment: BUBBA Garcia COMMENTS:NOTE: The therapeutic time for Heparin anticoagulation, based on Xa activity inhibition, is an APTT of 46-80 seconds. Performed By: #### L [id number] ####Senior Vice President & General Counsel: VELMA VALADEZ ([phone])[facility] ([facility])[address] [place] [address] BASIC METABOLIC PANELon 03-18 Anion gap [Moles/Vol] 8 mmol/L Normal 3-13 [facility] Comment on above: Performed By: #### L AB15 ####Senior Vice President & General Counsel: VELMA VALADEZ ([phone])[facility] ([facility])[address] [place] [address] Calcium [Mass/Vol] 9.3 mg/dL Normal 8.4-10.4 [facility] Comment on above: Performed By: #### L AB15 ####Senior Vice President & General Counsel: VELMA VALADEZ ([phone])[facility] ([facility])[address] [place] [address] [place] Chloride [Moles/Vol] 110 mmol/L High 98-107 [facility] Comment on above: Performed By: #### L AB15 ####Senior Vice President & General Counsel: VELMA VALADZE ([phone])[facility] ([facility])[address] [place] [address] [place] CO2 [Moles/Vol] 18 mmol/L Low 22-30 [facility] Comment on above: Performed By: #### L AB15 ####Senior Vice President & General Counsel: VELMA VALADEZ ([phone])[facility] ([facility])[address] [place] [address] Creatinine [Mass/Vol] 1.45 mg/dL High 0.52-1.04 [facility] Comment on above: Performed By: #### L AB15 ####Senior Vice President & General Counsel: VELMA VALADEZ ([phone])[facility])[address] [place] [address] GLOMERULAR FILTRATION RATE ML/MIN/1.73 SQ M.PREDICTED 35.6 mL/min/1.73m*2 Low >60.0 [facility] Comment on above: Result Comment: Calc ulation based on the Chronic Kidney Disease Epidemiology Collaboration (CKD-EPI) equation refit without adjustment for race Performed By: #### L AB15 ####Senior Vice President & General Counsel: VELMA VALADEZ ([phone])[facility] ([facility])[address] [place] [address] Glucose [Mass/Vol] 100 mg/dL Normal 70-100 [facility] Comment on above: Performed By: #### L AB15 ####Senior Vice President & General Counsel: VELMA VALADEZ ([phone])[facility])[address] [place] [address] Potassium [Moles/Vol] 4.5 mmol/L Normal 3.5-5.1 [facility] Comment on above: Performed By: #### L AB15 ####Senior Vice President & General Counsel: VELMA VALADEZ ([phone])[facility] ([facility])[address] [place] [address] Sodium [Moles/Vol] 135 mmol/L Normal 135-145 [facility] Comment on above: Performed By: #### L AB15 ####Senior Vice President & General Counsel: VELMA VALADEZ ([phone])[facility])[address] [place] [address] Urea nitrogen [Mass/Vol] 30 mg/dL High 7-17 [facility] Comment on above: Performed By: #### L AB15 ####Senior Vice President & General Counsel: VELMA VALADEZ ([phone])[facility])[address] [place] [address] Basic metabolic 1998 panelOr dered By: Marielle [...] [facility] CAR[facility]OORDon 04-04-2024 [facility] Normal [facility] [...] Basophils (Bld) [#/Vol] 0.1 10*3/uL Normal 0.0-0.2 [facility] Comment on above: Performed By: #### L [id number] ####Senior Vice President & General Counsel: VELMA VALADEZ ([phone])[facility] ([facility])[address] [place] [address] Basophils/100 WBC (Bld) 0.7 % Normal 0.0-2.0 [facility] Comment on above: Performed By: #### L [id number] ####Senior Vice President & General Counsel: VELMA VALADEZ ([phone])[facility])[address] [place] [address] Eosinophils (Bld) [#/Vol] 0.3 10*3/uL Normal 0.0-0.5 [facility] Comment on above: Performed By: #### L [id number] ####Senior Vice President & General Counsel: VELMA VALADEZ ([phone])[facility])[address] [place] [address] Eosinophils/100 WBC (Bld) 3.2 % Normal 0.0-6.0 [facility] Comment on above: Performed By: #### L [id number] ####Senior Vice President & General Counsel: VELMA VALADEZ ([phone])[facility])[address] [place] [address] Erythrocyte distribution width (RBC) [Ratio] 14.2 % Normal 11.5-15.0 [facility] Comment on above: Performed By: #### L [id number] ####Senior Vice President & General Counsel: VELMA VALADEZ ([phone])[address] Hematocrit (Bld) [Volume fraction] 38.8 % Normal 35.0-47.0 [facility] Comment on above: Performed By: #### L [id number] ####Senior Vice President & General Counsel: VELMA VALADEZ ([phone])[facility])[address] [place] [address] Hemoglobin (Bld) [Mass/Vol] 12.5 g/dL Normal 11.7-16.0 [facility] Comment on above: Performed By: #### L [id number] ####Senior Vice President & General Counsel: VELMA [phone])[facility] ([address] IMMATURE GRANS % 0.6 % Normal 0.0-2.[address] [facility] Comment on above: Performed By: #### L [id number] ####Senior Vice President & General Counsel: VELMA VALADEZ ([phone])[facility])[address] [place] [address] IMMATURE GRANS ABSOLUTE 0.1 10*3/uL High <0.1 [facility] Comment on above: Performed By: #### L [id number] ####Senior Vice President & General Counsel: VELMA VALADEZ ([phone])[facility])[address] [place] [address] Lymphocytes (Bld) [#/Vol] 1.6 10*3/uL Normal 1.0-4.3 [facility] [facility] Comment on above: Performed By: #### L [id number] ####Senior Vice President & General Counsel: VELMA VALADEZ ([phone])[facility])[address] [place] [address] Lymphocytes/100 WBC (Bld) 19.2 % Normal 15.0-45.0 [facility] Comment on above: Performed By: #### L [id number] ####Senior Vice President & General Counsel: VELMA VALADEZ ([phone])[facility])[address] [place] [address] MCH (RBC) [Entitic mass] 29.7 pg Normal 26.0-34.0 [facility] Comment on above: Performed By: #### L [id number] ####Senior Vice President & General Counsel: VELMA VALADEZ ([phone])[facility])[address] [place] [address] MCHC 32.2 % Normal 30.5-36.0 [facility] Comment on above: Performed By: #### L [id number] ####Senior Vice President & General Counsel: VELMA VALADEZ ([phone])[facility])[address] [place] [address] MCV (RBC) [Entitic vol] 92.2 fL Normal 77.0-99.0 [facility] Comment on above: Performed By: #### L [id number] ####Senior Vice President & General Counsel: VELMA VALADEZ ([phone])[facility] ([facility])[address] [place] [address] Monocytes (Bld) [#/Vol] 0.8 10*3/uL Normal 0.0-0.9 [facility] Comment on above: Performed By: #### L [id number] ####Senior Vice President & General Counsel: VELMA VALADEZ ([phone])[facility] ([facility])[address] [place] [address] Monocytes/100 WBC (Bld) 9.9 % Normal 5.0-13.0 [facility] Comment on above: Performed By: #### L [id number] ####Senior Vice President & General Counsel: VELMA VALADEZ ([phone])[facility] ([facility])[address] [place] [address] NEUTROPHILS ABSOLUTE 5.3 10*3/uL Normal 1.8-7.5 [facility] Comment on above: Performed By: #### L [id number] ####Senior Vice President & General Counsel: VELMA VALADEZ ([phone])[facility] ([facility])[address] [place] [address] Neutrophils/100 WBC (Bld) 66.4 % Normal 38.0-82.0 [facility] Comment on above: Performed By: #### L [id number] ####Senior Vice President & General Counsel: VELMA VALADEZ ([phone])[facility] ([facility])[address] [place] [address] NRBC 0.0 /100 WBCs Normal 0.0-2.0 [facility] Comment on above: Performed By: #### L [id number] ####Senior Vice President & General Counsel: VELMA VALADEZ ([phone])[facility] ([facility])[address] [place] [address] Platelet mean volume (Bld) [Entitic vol] 10.0 fL Normal 9.0-12.7 [facility] Comment on above: Performed By: #### L [id number] ####Senior Vice President & General Counsel: VELMA VALADEZ ([phone])[facility] ([facility])[address] [place] [address] Platelets (Bld) [#/Vol] 266 10*3/uL Normal 140-440 [facility] Comment on above: Performed By: #### L [id number] ####Senior Vice President & General Counsel: VELMA VALADEZ ([phone])[facility])[address] [place] [address] RBC (Bld) [#/Vol] 4.21 10*6/uL Normal 3.80-5.20 [facility] Comment on above: Performed By: #### L [id number] ####Senior Vice President & General Counsel: VELMA VALADEZ ([phone])[facility] ([facility])[address] [place] [address] WBC (Bld) [#/Vol] 8.1 10*3/uL Normal 3.6-10.7 [facility] Comment on above: Performed By: #### L [id number] ####Senior Vice President & General Counsel: VELMA VALADEZ ([phone])[facility] ([facility])[address] [place] [address] Consulton 04-04-2024 Consult [facility] Consult Normal [facility] ECG 12-LEADon 04-04-2024 ECG 12-LEAD IMPRESSION: Atrial fibrillation Borderline T abnormalities, inferior leads Compared to ECG 08/28/11 Sinus rhythm no longer noted Electronically Signed On 04-04-2024 03:48:37 EDT by Sourav Swenson [facility] ED Nursing Noteon 04-04-2024 ED Nursing Note Report to Delia Bond RN 04/04/24 0342 [facility] ED Nursing Note Multiple attempts ma sheri to call report to [facility] with phone number provided by electric truck operator, but when phone number dialed RN only gets busy tone. Will try again. Shannon Bond RN 04/04/24 0338 [facility] ED Nursing Note [facility] at bedside to transport pt to [facility]. Paperwork with EMS Shannon Bond RN 04/04/24 4798 [facility] IDNon 04-04-2024 IDN The patient is Moderately Stable - Low risk of patient condition declining or worsening The patient's goals for the shift include safety The clinical goals for the shift include therapeutic aptt Normal [facility] IDN Normal [facility] No Panel Informationon 04-04 Left Pop [...] popliteal vein. History of DVT in 2021 [employer] Details A george scale, color Doppler imaging, spectral Doppler analysis and B-flow ultrasound was performed. During the study 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 and transverse views were obtained. Pulsed wave doppler was performed. The exam was performed with the patient in the supine position. Overall the study quality was adequate. Study was technically difficult due to: bowel gas. CV CPACS Left MICHELLE 0.62 [facility] Left dorsalis pedis BP 78 mmHg [facility] Left posterior tibial 86 mmHg [facility] Right MICHELLE 0.55 [facility] Right arm BP 139 mmHg [facility] Right dorsalis pedis BP 65 mmHg [facility] Right posterior tibial 76 mmHg [facility] Right side findings: Resting MICHELLE [...] of RLE discovered just before PVR testing. [employer] Details A spectral Doppler analysis ultrasound was [...] On 04-04-2024 03:48:37 EDT by Sourav Swenson [facility] [employer] No Panel InformationOrdered By: Sourav Swenson on 04-04-2024 P [place] 0 degrees [facility] [employer] Work Phone: UT Interval 0 ms [facility] [employer] Work Phone: QRS [place] 40 degrees [facility] [employer] Work Phone: QRSD Interval 86 ms [employer] Work Phone: QT Interval 352 ms [employer] Work Phone: QTC Interval 411 ms [employer] Work Phone: T Wave [place] -3 degrees [employer] Work Phone: [employer] Work Phone: Progress Noteon 04-04-2024 Progress Note Normal [employer] [facility] Progress Note Normal [facility] Progress Note Normal [facility] [employer] [facility] Vital signsOrdered By: Cathy Swenson on 04-04-2024 Heart rate 82 /min bpm [employer] Work Phone: aPTT Coag (Bld) [Time]on aPTT Coag (PPP) [Time] 81.8 s High 20.0 - 30.5 s [facility] [...] (Bld) [Time] 25.6 s Normal 20.0-30.5 [facility] Comment on above: Result Comment: BUBBA Garcia COMMENTS:NOTE: The therapeutic time for Heparin anticoagulation, based on Xa activity inhibition, is an APTT of 46-80 seconds. Performed By: #### L [id number] ####Senior Vice President & General Counsel: MARYLOU LALO ([phone])[facility] [place] [address] CBC (HEMOGRAM)on 04-03-2024 Erythrocyte distribution width (RBC) [Ratio] 14.4 % Normal 11.5-15.0 [facility] Comment on above: Performed By: #### L [id number] ####Senior Vice President & General Counsel: MARYLOU SEGURAPerriJHONATHAN ([phone])[facility] ([facility])[address] Hematocrit (Bld) [Volume fraction] 38.6 % Normal 35.0-47.0 [facility] Comment on above: Performed By: #### L [id number] ####Senior Vice President & General Counsel: MARYLOU LALO ([phone])[facility] ([facility])[address] [place] [address] Hemoglobin (Bld) [Mass/Vol] 12.7 g/dL Normal 11.7-16.0 [facility] Comment on above: Performed By: #### L [id number] ####Senior Vice President & General Counsel: MARYLOU SEGURAPerriJHONATHAN ([phone])[facility] ([facility])[address] [place] [address] MCH (RBC) [Entitic mass] 30.4 pg Normal 26.0-34.0 [facility] Comment on above: Performed By: #### L [id number] ####Senior Vice President & General Counsel: MARYLOU KUMARIJHONATHAN ([phone])[facility] ([facility])[address] [place] [address] MCHC 32.9 % Normal 30.5-36.0 [facility] Comment on above: Performed By: #### L [id number] ####Senior Vice President & General Counsel: MARYLOU KUMARIJHONATHAN ([phone])[facility] ([facility])[address] [place] [address] MCV (RBC) [Entitic vol] 92.3 fL Normal 77.0-99.0 [facility] Comment on above: Performed By: #### L [id number] ####Senior Vice President & General Counsel: MARYLOU KUMARIJHONATHAN ([phone])[facility] ([facility])[address] Platelet mean volume (Bld) [Entitic vol] 10.0 fL Normal 9.0-12.7 [facility] Comment on above: Performed By: #### L [id number] ####Senior Vice President & General Counsel: MARYLOU KUMARIJHONATHAN ([phone])[facility] ([facility])[address] Platelets (Bld) [#/Vol] 283 10*3/uL Normal 140-440 [facility] Comment on above: Performed By: #### L [id number] ####Senior Vice President & General Counsel: MARYLOU MAY ([phone])[facility] ([facility])[address] [place] [address] RBC (Bld) [#/Vol] 4.18 10*6/uL Normal 3.80-5.20 [facility] Comment on above: Performed By: #### L [id number] ####Senior Vice President & General Counsel: MARYLOU KUMARIJHONATHAN ([phone])[facility] ([facility])[address] [place] [address] WBC (Bld) [#/Vol] 9.3 10*3/uL Normal 3.6-10.7 [facility] Comment on above: Performed By: #### L [id number] ####Senior Vice President & General Counsel: MARYLOU MAY ([phone])[facility] ([facility])[address] [place] [address] CBC panel Auto (Bld)on 04-03 Erythrocyte distribution [...] 04-03-2024 Albumin [Mass/Vol] 4.3 g/dL Normal 3.5-5.0 [facility] Comment on above: Performed By: #### Weston ABJovan, [id number], LAB17 ####Senior Vice President & General Counsel: MARYLOU MAY ([phone])[facility] ([facility])[address] ALP [Catalytic activity/Vol] 91 U/L Normal 38-126 [facility] Comment on above: Performed By: #### Weston DAWSON, [id number], LAB17 ####Senior Vice President & General Counsel: MARYLOU MAY ([phone])[facility] ([facility])[address] ALT [Catalytic activity/Vol] 10 U/L Normal 0-34 [facility] Comment on above: Performed By: #### Weston AB103, [id number], LAB17 ####Senior Vice President & General Counsel: MARYLOU MAY ([phone])[facility] ([facility])[address] Anion gap [Moles/Vol] 9 mmol/L Normal 3-13 [facility] Comment on above: Performed By: #### L AB103, [id number], LAB17 ####Senior Vice President & General Counsel: MARYLOU AGUILARCER ([phone])[facility] ([facility])[address] [place] [address] [place] AST [Catalytic activity/Vol] 19 U/L Normal 15-46 [facility] Comment on above: Performed By: #### L AB103, [id number], LAB17 ####Senior Vice President & General Counsel: MARYLOU SEGURAMARIELA ([phone])[facility] [place] ([facility])[address] Bilirubin [Mass/Vol] 1.1 mg/dL Normal 0.2-1.3 [facility] Comment on above: Performed By: #### L SAMIR, [id number], LAB17 ####Senior Vice President & General Counsel: MARYLOU SEGURAMARIELA ([phone])[facility] S[place] ([facility])[address] Calcium [Mass/Vol] 9.3 mg/dL Normal 8.4-10.4 [facility] Comment on above: Performed By: #### L ABJovan, [id number], LAB17 ####Senior Vice President & General Counsel: MARYLOU MAY ([phone])[facility] [place] ([facility])[address] [place] [address] [place] Chloride [Moles/Vol] 107 mmol/L Normal 98-107 [facility] Comment on above: Performed By: #### L ABJovan, [id number], LAB17 ####Senior Vice President & General Counsel: MARYLOU MAY ([phone])[facility] [place] ([facility])[address] [place] [address] [place] CO2 [Moles/Vol] 20 mmol/L Low 22-30 [facility] Comment on above: Performed By: #### L AB103, [id number], LAB17 ####Senior Vice President & General Counsel: MARYLOU MAY ([phone])[facility] [place] ([facility])[address] [place] [address] [place] Creatinine [Mass/Vol] 1.54 mg/dL High 0.52-1.04 [facility] Comment on above: Performed By: #### L AB103, [id number], LAB17 ####Senior Vice President & General Counsel: MARYLOU MAY ([phone])[facility] ([facility])[address] [place] [address] [place] GLOMERULAR FILTRATION RATE ML/MIN/1.73 SQ M.PREDICTED 33.2 mL/min/1.73m*2 Low >60.0 [facility] Comment on above: Result Comment: Calc ulation based on the Chronic Kidney Disease Epidemiology Collaboration (CKD-EPI) equation refit without adjustment for race Performed By: #### L SAMIR, [id number], LAB17 ####Senior Vice President & General Counsel: MARYLOU MAY ([phone])[facility] ([facility])[address] Glucose [Mass/Vol] 115 mg/dL High 70-100 [facility] Comment on above: Performed By: #### Weston DAWSON, [id number], LAB17 ####Senior Vice President & General Counsel: MARYLOU MAY ([phone])[facility] ([facility])[address] Potassium [Moles/Vol] 5.7 mmol/L High 3.5-5.1 [facility] Comment on above: Performed By: #### Weston DAWSON, [id number], LAB17 ####Senior Vice President & General Counsel: MARYLOU MAY ([phone])[facility] ([facility])[address] Protein [Mass/Vol] 7.7 g/dL Normal 6.3-8.2 [facility] Comment on above: Performed By: #### L AB103, [id number], LAB17 ####Senior Vice President & General Counsel: MARYLOU MAY ([phone])[facility])[address] [place] [address] [place] Sodium [Moles/Vol] 135 mmol/L Normal 135-145 [facility] Comment on above: Performed By: #### L SAMIR, [id number], LAB17 ####Senior Vice President & General Counsel: MARYLOU MAY ([phone])[facility] ([facility])[address] Urea nitrogen [Mass/Vol] 29 mg/dL High 7-17 [facility] Comment on above: Performed By: #### L AB103, [id number], LAB17 ####Senior Vice President & General Counsel: MARYLOU MAY ([phone])[facility] ([facility])[address] HEAD WO IV CONTRASTon CT HEAD WO IV CONTRAST Normal [facility] CT Head WO contraston 2023 1. No acute finding. Chronic left cerebellar infarct.. Report Dictated on Electronically Signed By: Toño Tang MD Electronically Signed Date/Time: 04/03/2024 9:21 PM EDT [facility] Patient Name: MLE CARVER RD : 1940 Exam Date/Time: 04/03/2024 [...] midline shift. No hydrocephalus. Left globe prosthesis. [facility] Toño Tang MD - 04/03/2024 Patient [...] [facility] Radiology Study observation (narrative) [facility] CT Head WO contrastOrdered B y: Toño Tang on 04-03-2024 [employer] Work Phone: CTA AORTA BL ILIOFEMORAL W W Oon 04-03-2024 CTA AORTA BL ILIOFEMORAL W WO Normal [facility] CTA Thoracic and Abdominal A zachary and Bilateral Runoff Vessels WO and W contrast Cheryl 04-03-2024 1. Severe lower extremity atherosclerotic disease. 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 2. 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 3. Severe diverticulosis. Report Dictated on Electronically Signed By: Toño Tang MD Electronically Signed Date/Time: 04/03/2024 9:36 PM EDT [facility] [employer] Patient Name: MEL CARVER RD : 1940 [facility]#: [id number] Exam Date/Time: 04/03/2024 21:14 Procedure: CTA AORTA [...] 04/03/2024 [facility]: [facility]EL POP [facility] 1940 [id number] Exam Date/Time: 04/03/2024 21:14 Procedure: [facility] (narrative) [facility] metabolic 1998 panelon 04-03-2024 Albumin [Mass/Vol] 4.3 [...] Nursing Noteon 04-03-2024 ED Nursing Note Normal [facility] ED Provider Noteon ED Provider Note Normal [facility] Laboratory - Chemistry and C hemistry [...] 04-03-2024 Magnesium [Mass/Vol] 2.3 mg/dL Normal 1.6-2.3 [facility] Comment on above: Performed By: #### L AB103, [id number], LAB17 ####Senior Vice President & General Counsel: MARYLOU MAY ([phone])[facility])[address] [place] [address] Magnesium [Mass/Vol]on 04-03 Interpretation and review of laboratory results Normal [facility] No Panel Informationon 04-03 [facility] Interpretation and review of laboratory results Normal [facility] PROTIME AND APTTon aPTT Coag (Bld) [Time] 26.7 s Normal 20.0-30.5 [facility] Comment on above: Performed By: #### L [id number] ####Senior Vice President & General Counsel: MARYLOU MAY ([phone])[facility])[address] INR Coag (PPP) [Relative time] 1.0 {INR} Normal 0.9-1.1 [facility] Comment on above: Result Comment: Timothy [...] prevent Myocardial Infarction Performed By: #### L [id number] ####Senior Vice President & General Counsel: MARYLOU MAY ([phone])[facility] ([facility])[address] [place] [address] PT Coag (PPP) [Time] 11.7 s Normal 9.0-12.0 [facility] Comment on above: Performed By: #### L [id number] ####Senior Vice President & General Counsel: MARYLOU MAY ([phone])[facility] ([facility])[address] [place] [address] TROPONIN Ion 04-03-2024 Troponin I.cardiac [Mass/Vol] 0.014 ng/mL Normal <0.034 [facility] Comment on above: Result Comment: BUBBA Garcia COMMENTS:Patients with high levels of Biotin oral intake (ie >5 mg/day) may have falsely decreased Troponin levels. Performed By: #### L AB103, [id number], LAB17 ####Senior Vice President & General Counsel: MARYLOU MAY ([phone])[facility] ([facility])[address] [place] [address] Troponin I.cardiac [Mass/Vol ]on 04-03-2024 Interpretation and [...] MD Electronically Signed Date/Time: 06/16/2023 8:10 AM [facility] Patient Name: MEL [...] and lateral ankle resulting from ORIF hardware. [facility] Dimas Woodward MD - 06/16/2023 Patient Name: MEL POP : 1940 [facility]#: [id number] Exam Date/Time: 06/15/2023 16:21 Procedure: MR TIBIA [...] Electronically Signed Date/Time: 06/16/2023 8:10 AM EST [employer] MR Lower leg - left WO and W contrast IVOrdered By: Dmias Woodward on 06-16-2023 [employer] Work Phone: MR Lower leg - left WO and W contrast Cheryl 06-15-2023 Radiology [facility]narrative[facility] Panel Informationon 05-24 No evidence of venous thrombus in the left lower extremity. Report Dictated on Electronically Signed By: Yasmany Whyte MD Electronically Signed Date/Time: 05/24/2023 11:42 AM [facility] Patient Name: MEL CARVER RD : [...] augmentation and normal response to Valsalva maneuver. [facility] Yasmany Whyte MD - 05/24/2023 Patient [...] Electronically Signed Date/Time: 05/24/2023 11:42 AM EST [employer] CT Neck W contrast Cheryl 02-16 Patient Name: MEL CARVER RD: 1940 Exam Date/Time: 03/08/2023 11:33 Procedure: CT [...] MD Electronically Signed Date/Time: 03/11/2023 10:28 AM [facility] Efrain Yi MD - 03/11/2023 [...] Electronically Signed Date/Time: 03/11/2023 10:28 [address] [employer] [facility] Neck W contrast IVOrdered By: Efrain Yi on 03-11-2023 [employer] Work Phone: CT Neck W contrast Cheryl 02-16 Radiology Study observation (narrative) [facility] alth US Head and neck soft tissue on 02-24-2023 Indeterminate soft tissue nodules in the patients area of palpable concern in the left neck, which may represent enlarged left submandibular gland with obstructing sialolith and adjacent enlarged lymph node. Recommend further evaluation with contrast-enhanced neck CT. Report Dictated on Electronically Signed By: Ryan Mccollum MD Electronically Signed Date/Time: 02/24/2023 8:23 AM EDT [employer] [facility] Patient Name: MEL CARVER RD : [...] measuring 1.8 x 1.6 x 1.4 cm. [employer] [facility] Ryan Mccollum MD - 02/24/2023 Patient Name: MEL POP : 1940 [facility]#: [id number] Exam Date/Time: 02/22/2023 13:44 Procedure: US HEAD [...] Electronically Signed Date/Time: 02/24/2023 8:23 AM EDT [facility] US Head and neck soft tissue Ordered By: Ryan Mccollum on 02-24-2023 [facility] Work Phone: US Head and neck soft tissue on 02-22-2023 Radiology Study observation (narrative) [facility] CONSULT PROGon 06-29-2022 CONSULT PROG HNO ID: [id number] Author: Nemo Petty APRN.STRETCHING MACHINE TENDER FRAME Service: Wound/Ostomy Author Type: Nurse Practitioner Type: Consult Progress Note Filed: 06/29/2022 12:51 PM Note Text: WOUND CARE SERVICE PROGRESS MANAGER UNIVERSITY NOTE SERVICE DATE: 06/29/2022 SERVICE TIME: 10:20 TIME SPENT (minutes): 30 REASON FOR CONSULT: follow up wound care visit to reassess skin/wounds CHIEF COMPLAINT: right finger wound Subjective HISTORY OF PRESENT ILLNESS: Ms. Jose Alberto Castillo is a 81 year old female who is seen today with Delia Bruno, Wound/quality assurance assessor, as a follow up wound care visit [...] Wound Image Site Assessment Red;Intact Allie-Wound Assessment [place] Drainage Amount None Treatments Protective Barrier Ointment Dressing Foam- Adhesive Active Orders Date Order Priority Status Authorizing Provider 06/28/22 1423 zinc oxide 20 % ointment Active Iwona Chu DO 06/21/22 1248 DRESSING CARE (SPECIFY) ([place]) Routine Active Fidel Carmen APRN.STRETCHING MACHINE TENDER FRAME - Specify:: Apply allevyn foam to coccyx, peel down every shift to assess skin and to apply zinc oxide, change every 3 days or if soiled. 06/21/22 1248 zinc oxide 20 % Active Fidel Carmen APRN.STRETCHING MACHINE TENDER FRAME Wound 06/16/22 Incision Knee Left;Posterior (Active) Assessments 06/29/2022 10:27 AM Wound Image Site Assessment Dry;Intact Allie-Wound Assessment Intact Closure Sutures Drainage Amount None Treatments Open to Air No Linked orders to display Wound 06/21/22 0948 Atypical Wound Finger (Comment which one) Right (Active) Assessments 06/29/2022 10:23 AM Wound Image Site Assessment Red;[place] Allie-Wound Assessment Intact Wound Length (cm) 2 cm Wound Width (cm) 2.5 cm Wound Surface Area (cm2) 5 cm2 Wound Depth (cm) 0.1 cm Wound Volume (cm3) 0.5 (more content not included)... Normal [facility] NUTRITIONon 06-29-2022 NUTRITION HNO ID: [id number] Author: Iwona Pelayo RD Service: Nutrition Therapy Author Type: Registered Dietitian Type: Nutrition Filed: 06/29/2022 1:38 PM Note Text: NUTRITION THERAPY PROGRESS NOTE SERVICE DATE: 06/29/2022 SERVICE TIME: 13:30 Nutrition Assessment: Recommended Malnutrition Diagnosis: No Malnutrition Identified (06/23/22 1109 : Parul Mcallister RD) Estimated kilocalorie needs: 6520-6607 Calorie Calculation Method: 25-30 kcals/kg Estimated protein [...] June 29, 2022 TIME: 10:17 AM Normal [facility] PT EDon 06-29-2022 PT ED HNO ID: [id number] Author: Joana Tolbert RPh Service: Pharmacy Author [...] tolerating anticoag therapy (thrombi) RN and outpatient [facility] pharmacy aware medications are pending to [...] not met: N/A Joana Tolbert [facility] 06-28-2022 [facility] HNO ID: [id number] Author: Iwona Chu DO Service: Hospital Medicine [...] Attending: Collette Rahman DO Primary Service: BLAS SHILO MANJARREZ MY CONDITION AT DISCHARGE: Stable REASON [...] micropuncture needle and serially upsized to a 5-Malagasy sheath. A venogram was then performed, which [...] time, the sheath was upsized to an 8-Malagasy sheath. An intravascular ultrasound was performed. This [...] educational literat (more content not included)... Normal [facility] NURSING PROGon 06-28-2022 NURSING PROG HNO ID: [id number] Author: John Castro RN Service: Nursing Author Type: Registered Nurse Type: Nursing Progress Note Filed: 06/28/2022 2:28 PM Note Text: Other: Ambulatory pulse ox per Dr. Chu SpO2 on Room air at rest: 91% SpO2 while ambulating on Room air: 83% SpO2 while ambulating on 2 liters of oxygen: 91% Normal [facility] Bacteria Spec Resp Culton Bacteria identified Respiratory culture Nom (Unsp spec) CULTURE, RESPIRATORY: Few Normal respiratory radha present ORGANISM ID: 1 Few Lactose fermenting gram negative rods Insignificant colony count. No further workup. GRAM STAIN: Rare Gram positive cocci Few Polymorphonuclear leukocytes Few Epithelial cells Abnormal [facility] Comment on above: Performed By: #### 3 2355-0 #### [facility] CLIA [id number] [address] [place] CONSULT PROGon 06-25-2022 CONSULT PROG HNO ID: [id number] Author: Cirilo Yip RPh Service: Pharmacy Author Type: Pharmacist Type: Consult Progress Note Filed: 06/25/2022 1:49 PM Note Text: PHARMACY ORAL ANTICOAGULATION PATIENT EDUCATION NOTE Oral anticoagulant: apixaban Indication: DVT/PE Patient New to medication: Yes LEARNERS Persons Present: Patient Primary Learner: Patient Technical Solutions Engineer Present: No Patient educated on the followin. [...] June 25, 2022 TIME: 1:48 PM Normal [facility] Bacteria Spec Resp Culton Bacteria identified Respiratory culture Nom (Unsp spec) CULTURE, RESPIRATORY: Moderate Normal respiratory radha present GRAM STAIN: Moderate Mixed oral radha Few Polymorphonuclear leukocytes Few Epithelial cells Abnormal [facility] Comment on above: Performed By: #### 3 2355-0 ####[facility]ORYCLIA [id number] [place] [address] [place] Basic metabolic 2000 panelon 06-24-2022 Anion gap [Moles/Vol] 10 mmol/L Normal 9-18 [facility] Comment on above: Order Comment: Speci men Type: BLOOD SPECIMENOrdering Facility: [facility] Address: [address] [place] [address] Performed By: #### 2 4321-2, 80285-1 ####[facility]ORYCLIA [id number] [place] [address] [place] Calcium [Mass/Vol] 9.0 mg/dL Normal 8.5-10.2 [facility] Comment on above: Order Comment: Speci men Type: BLOOD SPECIMENOrdering Facility: [facility] Address: [address] [place] [address] Performed By: #### 2 4321-2, 59280-2 ####[facility]ORYCLIA [id number] [place] [address] [place] Chloride [Moles/Vol] 103 mmol/L Normal 97-105 [facility] Comment on above: Order Comment: Speci men Type: BLOOD SPECIMENOrdering Facility: [facility] Address: [address] [place] [address] Performed By: #### 2 4321-2, 04169-4 ####[facility]ORYCLIA [id number] [place] [address] [place] CO2 [Moles/Vol] 23 mmol/L Normal 22-30 [facility] Comment on above: Order Comment: Speci men Type: BLOOD SPECIMENOrdering Facility: [facility] Address: [address] [place] [address] Performed By: #### 2 4321-2, 44294-5 ####[facility]ORYCLIA [id number] [address] [place] [facility] Creatinine [Mass/Vol] 0.73 mg/dL Normal 0.58-0.96 [facility] Comment on above: Order Comment: Rhina mason Type: BLOOD SPECIMENOrdering Facility: [facility] Address: [address] [address] Performed By: #### 2 4321-2, 73181-1 ####[facility] COUNTYIA [id number] [address] ESTIMATED GLOMERULAR FILTRATION RATE 82 mL/min/1.73m??? Normal >=60 [facility] Comment on above: Order Comment: Rhina mason Type: BLOOD SPECIMENOrdering Facility: [facility] Address: [address] [place] [address] Result Comment: Isa mated Glomerular Filtration Rate [...] actual GFR. Performed By: #### 2 4321-2, 63424-4 ####[facility] COUNTYIA [id number] [address] [place] [facility] Glucose [Mass/Vol] 165 mg/dL High 74-99 [facility] Comment on above: Order Comment: Rhina mason Type: BLOOD SPECIMENOrdering Facility: [facility] Address: [address] [place] [address] Result Comment: The [place] Diabetes Association (ADA) provides guidance for cutoff [...] Standards of Medical Care in Diabetes 2016, [place] [employer]. Diabetes Care. 2016.39(Suppl 1). Performed By: #### 2 4321-2, 10250-4 ####[facility]ORYCLIA [id number] [address] [place] Potassium [Moles/Vol] 5.0 mmol/L Normal 3.7-5.1 [facility] Comment on above: Order Comment: Speci men Type: BLOOD SPECIMENOrdering Facility: [facility] Address: [address] [address] Performed By: #### 2 4321-2, 73479-5 ####[facility]ORYCLIA [id number] [address] STATES [facility] Sodium [Moles/Vol] 136 mmol/L Normal 136-144 [facility] Comment on above: Order Comment: Speci men Type: BLOOD SPECIMENOrdering Facility: [facility] Address: [address] [address] Performed By: #### 2 4321-2, 80658-5 ####[facility]ORYCLIA [id number] [address] STATES [facility] Urea nitrogen [Mass/Vol] 14 mg/dL Normal 7-21 [facility] Comment on above: Order Comment: Speci men Type: BLOOD SPECIMENOrdering Facility: [facility] Address: [address] [address] Performed By: #### 2 4321-2, 09141-8 ####[facility]ATORYCLIA [id number] [address] [place] CBC panel Auto (Bld)on 06-24 Erythrocyte distribution width (RBC) [Ratio] 17.0 % High 11.5-15.0 [facility] Comment on above: Order Comment: Speci men Type: BLOOD SPECIMENOrdering Facility: [facility] Address: [address] [address] Performed By: #### 5 8410-2 ####[facility]ATORYCLIA [id number] [address] [facility] Hematocrit (Bld) [Volume fraction] 27.2 % Low 36.0-46.0 [facility] Comment on above: Order Comment: Speci men Type: BLOOD SPECIMENOrdering Facility: [facility] Address: [address] [place] [address] Performed By: #### 5 8410-2 ####[facility]ORYCLIA [id number] [address] [facility] Hemoglobin (Bld) [Mass/Vol] 8.9 g/dL Low 11.5-15.5 [facility] Comment on above: Order Comment: Speci men Type: BLOOD SPECIMENOrdering Facility: [facility] Address: [address] [place] [address] Performed By: #### 5 8410-2 ####[facility]ATORYCLIA [id number] [address] MCH (RBC) [Entitic mass] 30.9 pg Normal 26.0-34.0 [facility] Comment on above: Order Comment: Speci men Type: BLOOD SPECIMENOrdering Facility: [facility] Address: [address] [place] [address] Performed By: #### 5 8410-2 ####[facility]ATORYCLIA [id number] [address] [place] MCHC (RBC) [Mass/Vol] 32.7 g/dL Normal 30.5-36.0 [facility] Comment on above: Order Comment: Speci men Type: BLOOD SPECIMENOrdering Facility: [facility] Address: [address] [place] [address] Performed By: #### 5 8410-2 ####[facility]ATORYCLIA [id number] [address] MCV (RBC) [Entitic vol] 94.4 fL Normal 80.0-100.0 [facility] Comment on above: Order Comment: Speci men Type: BLOOD SPECIMENOrdering Facility: [facility] Address: [address] [address] Performed By: #### 5 8410-2 ####[facility]ATORYCLIA [id number] [address] [place] Nucleated RBC (Bld) [#/Vol] 0.03 10*3/uL High <0.01 [facility] Comment on above: Order Comment: Speci men Type: BLOOD SPECIMENOrdering Facility: [facility] Address: [address] [place] [address] Performed By: #### 5 8410-2 ####[facility]ATORYCLIA [id number] [address] [place] Platelet mean volume (Bld) [Entitic vol] 9.8 fL Normal 9.0-12.7 [facility] Comment on above: Order Comment: Speci men Type: BLOOD SPECIMENOrdering Facility: [facility] Address: [address] [place] [address] Performed By: #### 5 8410-2 ####[facility]ATORYCLIA [id number] [address] [place] Platelets (Bld) [#/Vol] 241 10*3/uL Normal 150-400 [facility] Comment on above: Order Comment: Speci men Type: BLOOD SPECIMENOrdering Facility: [facility] Address: [address] [address] Performed By: #### 5 8410-2 ####[facility]ATORYCLIA [id number] [address] [place] RBC (Bld) [#/Vol] 2.88 10*6/uL Low 3.90-5.20 [facility] Comment on above: Order Comment: Speci men Type: BLOOD SPECIMENOrdering Facility: [facility] Address: [address] [place] [address] Performed By: #### 5 8410-2 ####[facility]ORYCLIA [id number] [address] [place] WBC (Bld) [#/Vol] 6.37 10*3/uL Normal 3.70-11.00 [facility] Comment on above: Order Comment: Speci men Type: BLOOD SPECIMENOrdering Facility: [facility] Address: [address] [place] [address] Performed By: #### 5 8410-2 ####[facility]ORYCLIA [id number] [address] NT-proBNP SerPl-mCncon 06-24 Natriuretic peptide.B prohormone N-Terminal [Mass/Vol] 2971 pg/mL High <450 [facility] Comment on above: Order Comment: Speci men Type: BLOOD SPECIMENOrdering Facility: [facility] Address: [address] [place] [address] Performed By: #### 2 4321-2, 52735-3 ####[facility]ATORYCLIA [id number] [address] aPTT PPPon 06-24-2022 aPTT Coag (PPP) [Time] 64.2 s High 23.0-32.4 [facility] Comment on above: Order Comment: Speci men Type: BLOOD SPECIMEN [facility] Address: [address] [place] [address] Performed By: #### T SCR #### [facility] CLIA [id number] [address] aPTT Coag (PPP) [Time] 45.8 s High 23.0-32.4 [facility] Comment on above: Order Comment: Speci men Type: BLOOD SPECIMENOrdering Facility: [facility] Address: [address] [place] [address] Performed By: #### 3 2355-0 #### [facility] CLIA [id number] [address] aPTT Coag (PPP) [Time] 116.8 s High 28.5-34.0 [facility] Comment on above: Order Comment: Specrobson mason Type: BLOOD SPECIMENOrdering Facility: [facility] Address: [address] [place] [address] Performed By: #### 1 4979-9 ####[facility]ORYCLIA [id number] [place] [address] [place] ALLIED HEALTHon 06-23-2022 ALLIED HEALTH HNO ID: [id number] Author: Mikel Coronado RT(R) Service: Radiology Author [...] RT(R) June 23, 2022 9:41 PM Normal [facility] CBC panel Auto (Bld)on 06-23 Erythrocyte distribution width (RBC) [Ratio] 16.6 % High 11.5-15.0 [facility] Comment on above: Order Comment: Specrobson mason Type: BLOOD SPECIMENOrdering Facility: [facility] Address: [address] [place] [address] Performed By: #### 5 8410-2 ####[facility]ORYCLIA [id number] [address] [place] Hematocrit (Bld) [Volume fraction] 29.6 % Low 36.0-46.0 [facility] Comment on above: Order Comment: Rhina mason Type: BLOOD SPECIMENOrdering Facility: [facility] Address: [address] [place] [address] Performed By: #### 5 8410-2 ####[facility]ORYCLIA [id number] [address] Hemoglobin (Bld) [Mass/Vol] 9.5 g/dL Low 11.5-15.5 [facility] Comment on above: Order Comment: Speci men Type: BLOOD SPECIMENOrdering Facility: [facility] Address: [address] [place] [address] Performed By: #### 5 8410-2 ####[facility]ORYCLIA [id number] [address] MCH (RBC) [Entitic mass] 30.4 pg Normal 26.0-34.0 [facility] Comment on above: Order Comment: Speci men Type: BLOOD SPECIMENOrdering Facility: [facility] Address: [address] [place] [address] Performed By: #### 5 8410-2 ####[facility]ORYCLIA [id number] [address] MCHC (RBC) [Mass/Vol] 32.1 g/dL Normal 30.5-36.0 [facility] Comment on above: Order Comment: Speci men Type: BLOOD SPECIMENOrdering Facility: [facility] Address: [address] [place] [address] Performed By: #### 5 8410-2 ####[facility]ORYCLIA [id number] [address] STATES [facility] MCV (RBC) [Entitic vol] 94.6 fL Normal 80.0-100.0 [facility] Comment on above: Order Comment: Speci men Type: BLOOD SPECIMENOrdering Facility: [facility] Address: [address] [place] [address] Performed By: #### 5 8410-2 ####[facility]ORYCLIA [id number] [place] [address] [place] Nucleated RBC (Bld) [#/Vol] 0.07 10*3/uL High <0.01 [facility] Comment on above: Order Comment: Speci men Type: BLOOD SPECIMENOrdering Facility: [facility] Address: [address] [place] [address] Performed By: #### 5 8410-2 ####[facility]ORYCLIA [id number] [place] [address] [place] Platelet mean volume (Bld) [Entitic vol] 9.9 fL Normal 9.0-12.7 [facility] Comment on above: Order Comment: Speci men Type: BLOOD SPECIMENOrdering Facility: [facility] Address: [address] [place] [address] Performed By: #### 5 8410-2 ####[facility]ORYCLIA [id number] [place] [address] [place] Platelets (Bld) [#/Vol] 241 10*3/uL Normal 150-400 [facility] Comment on above: Order Comment: Speci men Type: BLOOD SPECIMENOrdering Facility: [facility] Address: [address] [place] [address] Performed By: #### 5 8410-2 ####[facility]ORYCLIA [id number] [place] [address] [place] RBC (Bld) [#/Vol] 3.13 10*6/uL Low 3.90-5.20 [facility] Comment on above: Order Comment: Speci men Type: BLOOD SPECIMENOrdering Facility: [facility] Address: [address] [place] [address] Performed By: #### 5 8410-2 ####[facility]ORYCLIA [id number] [place] [address] [place] WBC (Bld) [#/Vol] 6.86 10*3/uL Normal 3.70-11.00 [facility] Comment on above: Order Comment: Speci men Type: BLOOD SPECIMENOrdering Facility: [facility] Address: [address] [place], [place] [address] Performed By: #### 5 8410-2 ####[facility]ATORYCLIA [id number] [place] [address] [facility] NUTRITIONon 06-23-2022 NUTRITION HNO ID: [id number] Author: Parul Mcallister RD Service: Nutrition Therapy Author Type: Registered Dietitian Type: Nutrition Filed: 06/23/2022 2:28 PM Note Text: NUTRITION THERAPY INITIAL ASSESSMENT SERVICE DATE: 06/23/2022 SERVICE TIME: 11:09 AM Nutrition Assessment: Recommended Malnutrition Diagnosis: No Malnutrition Identified Nutrition Diagnosis: Problem: Suboptimal protein/energy intake Related to: Inability to consume sufficient nutrients As evidenced by: Patient/family self-report;Intake records Estimated kilocalorie needs: 5263-2601 Calorie Calculation Method: 25-30 kcals/kg Estimated protein [...] June 23, 2022 TIME: 11:09 AM Normal [facility] XR CHEST 2V FRONTAL/LATon XR CHEST [...] sites of pneumonia. Small bilateral pleural effusions. Cardiovascular Technician: PSCB Transcribe Date/Time: Jun 24 2022 6:34A Dictated by : DI MINER MD This examination was interpreted and the report reviewed and electronically signed by: DI MINER MD on Jun 24 2022 6:36AM EST [id number] Normal [facility] aPTT PPPon 06-23-2022 aPTT Coag (PPP) [Time] 46.7 s High 23.0-32.4 [facility] Comment on above: Order Comment: Speci men Type: BLOOD SPECIMENOrdering Facility: [facility] Address: [address] [place] [address] Performed By: #### 1 4979-9 ####[facility]ATORYCLIA [id number] [address] aPTT Coag (PPP) [Time] 53.8 s High 23.0-32.4 [facility] Comment on above: Order Comment: Speci men Type: BLOOD SPECIMENOrdering Facility: [facility] Address: [address] [place] [address] Performed By: #### 1 4979-9 ####[facility]ATORYCLIA [id number] [address] aPTT Coag (PPP) [Time] 114.5 s High 23.0-32.4 [facility] Comment on above: Order Comment: Speci men Type: BLOOD SPECIMEN [facility] Address: [address] [place] [address] Performed By: #### T SCR #### [facility] CLIA [id number] [address] CBC W Auto Differential pane l (Bld)on 06-22-2022 Basophils (Bld) [#/Vol] 0.03 10*3/uL Normal <0.11 [facility] Comment on above: Order Comment: Speci men Type: BLOOD SPECIMENOrdering Facility: [facility] Address: [address] [place] [address] Result Comment: Diff erential confirmed by visual scan of peripheral blood smear slide Performed By: #### 5 7021-8 ####[facility]ATORYCLIA [id number] [address] Basophils/100 WBC (Bld) 0.5 % Normal A [facility] Comment on above: Order Comment: Speci men Type: BLOOD SPECIMENOrdering Facility: [facility] Address: [address] [place] [address] Performed By: #### 5 7021-8 ####[facility]ORYCLIA [id number] [address] Differential cell count method Nom (Bld) Auto Normal [facility] Comment on above: Order Comment: Speci men Type: BLOOD SPECIMENOrdering Facility: [facility] Address: [address] [place] [address] Performed By: #### 5 7021-8 ####[facility]ORYCLIA [id number] [address] [place] Eosinophils (Bld) [#/Vol] 10*3/uL Normal <0.46 [facility] Comment on above: Order Comment: Speci men Type: BLOOD SPECIMENOrdering Facility: [facility] Address: [address] [place] [address] Performed By: #### 5 7021-8 ####[facility]ATORYCLIA [id number] [address] Eosinophils/100 WBC (Bld) 0.0 % Normal [facility] Comment on above: Order Comment: Speci men Type: BLOOD SPECIMENOrdering Facility: [facility] Address: [address] [place] [address] Performed By: #### 5 7021-8 ####[facility]ATORYCLIA [id number] [address] [place] Erythrocyte distribution width (RBC) [Ratio] 16.2 % High 11.5-15.0 [facility] Comment on above: Order Comment: Speci men Type: BLOOD SPECIMENOrdering Facility: [facility] Address: [address] [place] [address] Performed By: #### 5 7021-8 ####[facility]ATORYCLIA [id number] [address] [place] Hematocrit (Bld) [Volume fraction] 25.1 % Low 36.0-46.0 [facility] Comment on above: Order Comment: Speci men Type: BLOOD SPECIMENOrdering Facility: [facility] Address: [address] [place] [address] Performed By: #### 5 7021-8 ####[facility]ORYCLIA [id number] [address] [place] Hemoglobin (Bld) [Mass/Vol] 8.4 g/dL Low 11.5-15.5 [facility] Comment on above: Order Comment: Speci men Type: BLOOD SPECIMENOrdering Facility: [facility] Address: [address] [place] [address] Performed By: #### 5 7021-8 ####[facility]ATORYCLIA [id number] [address] [place] Immature granulocytes (Bld) [#/Vol] 0.60 10*3/uL High <0.10 [facility] Comment on above: Order Comment: Speci men Type: BLOOD SPECIMENOrdering Facility: [facility] Address: [address] [place] [address] Performed By: #### 5 7021-8 ####[facility]ORYCLIA [id number] [address] [place] Immature granulocytes/100 WBC (Bld) 10.3 % Normal [facility] Comment on above: Order Comment: Speci men Type: BLOOD SPECIMENOrdering Facility: [facility] Address: [address] [place] [address] Performed By: #### 5 7021-8 ####[facility]ATORYCLIA [id number] [place] [address] [place] Lymphocytes (Bld) [#/Vol] 1.38 10*3/uL Normal 1.00-4.00 [facility] Comment on above: Order Comment: Speci men Type: BLOOD SPECIMENOrdering Facility: [facility] Address: [address] [place] [address] Performed By: #### 5 7021-8 ####[facility]ORYCLIA [id number] [address] [place] Lymphocytes/100 WBC (Bld) 23.7 % Normal [facility] Comment on above: Order Comment: Speci men Type: BLOOD SPECIMENOrdering Facility: [facility] Address: [address] [place] [address] Performed By: #### 5 7021-8 ####[facility]ORYCLIA [id number] [address] MCH (RBC) [Entitic mass] 31.2 pg Normal 26.0-34.0 [facility] Comment on above: Order Comment: Speci men Type: BLOOD SPECIMENOrdering Facility: [facility] Address: [address] [place] [address] Performed By: #### 5 7021-8 ####[facility]ORYCLIA [id number] [address] MCHC (RBC) [Mass/Vol] 33.5 g/dL Normal 30.5-36.0 [facility] Comment on above: Order Comment: Speci men Type: BLOOD SPECIMENOrdering Facility: [facility] Address: [address] [place] [address] Performed By: #### 5 7021-8 ####[facility]ORYCLIA [id number] [address] MCV (RBC) [Entitic vol] 93.3 fL Normal 80.0-100.0 [facility] Comment on above: Order Comment: Speci men Type: BLOOD SPECIMENOrdering Facility: [facility] Address: [address] [place] [address] Performed By: #### 5 7021-8 ####[facility]ORYCLIA [id number] [address] Monocytes (Bld) [#/Vol] 0.50 10*3/uL Normal <0.87 [facility] Comment on above: Order Comment: Speci men Type: BLOOD SPECIMENOrdering Facility: [facility] Address: [address] [place] [address] Performed By: #### 5 7021-8 ####[facility]ORATORYCLIA [id number] [address] [place] Monocytes/100 WBC (Bld) 8.6 % Normal A [facility] Comment on above: Order Comment: Speci men Type: BLOOD SPECIMENOrdering Facility: [facility] Address: [address] [place] [address] Performed By: #### 5 7021-8 ####[facility]ATORYCLIA [id number] [address] [place] Neutrophils (Bld) [#/Vol] 3.31 10*3/uL Normal 1.45-7.50 [facility] Comment on above: Order Comment: Speci men Type: BLOOD SPECIMENOrdering Facility: [facility] Address: [address] [place] [address] Performed By: #### 5 7021-8 ####[facility]ORYCLIA [id number] [address] Neutrophils/100 WBC (Bld) 56.9 % Normal [facility] Comment on above: Order Comment: Speci men Type: BLOOD SPECIMENOrdering Facility: [facility] Address: [address] [place] [address] Performed By: #### 5 7021-8 ####[facility]ATORYCLIA [id number] [address] [place] Nucleated RBC (Bld) [#/Vol] 0.10 10*3/uL High <0.01 [facility] Comment on above: Order Comment: Speci men Type: BLOOD SPECIMENOrdering Facility: [facility] Address: [address] [place] [address] Performed By: #### 5 7021-8 ####[facility]ORYCLIA [id number] [address] [place] Nucleated RBC/100 WBC (Bld) [Ratio] 1.7 /100 WBC Normal [facility] Comment on above: Order Comment: Speci men Type: BLOOD SPECIMENOrdering Facility: [facility] Address: [address] Performed By: #### 5 7021-8 ####[facility]ORATORYCLIA [id number] [address] STATES [facility] Platelet mean volume (Bld) [Entitic vol] 9.7 fL Normal 9.0-12.7 [facility] Comment on above: Order Comment: Speci men Type: BLOOD SPECIMENOrdering Facility: [facility] Address: [address] [place] [address] Performed By: #### 5 7021-8 ####[facility]ORATORYCLIA [id number] [address] [place] Platelets (Bld) [#/Vol] 209 10*3/uL Normal 150-400 [facility] Comment on above: Order Comment: Speci men Type: BLOOD SPECIMENOrdering Facility: [facility] Address: [address] [place] [address] Performed By: #### 5 7021-8 ####[facility]ORATORYCLIA [id number] [place] [address] [place] RBC (Bld) [#/Vol] 2.69 10*6/uL Low 3.90-5.20 [facility] Comment on above: Order Comment: Speci men Type: BLOOD SPECIMENOrdering Facility: [facility] Address: [address] [place] [address] Performed By: #### 5 7021-8 ####[facility]ORATORYCLIA [id number] [address] [place] WBC (Bld) [#/Vol] 5.82 10*3/uL Normal 3.70-11.00 [facility] Comment on above: Order Comment: Speci men Type: BLOOD SPECIMENOrdering Facility: [facility] Address: [address] [place] [address] Performed By: #### 5 7021-8 ####[facility]ORATORYCLIA [id number] [address] [place] CONSULT PROGon 06-22-2022 CONSULT PROG HNO ID: [id number] Author: Eliza Martin APRN.DEMURRAGE AGENT Service: Gastroenterology Author Type: Nurse Specialist Type: [...] stool softene (more content not included)... Normal [facility] Comprehensive metabolic 2000 panelon 06-22-2022 Albumin [Mass/Vol] 2.4 g/dL Low 3.9-4.9 [facility] Comment on above: Order Comment: Speci men Type: BLOOD SPECIMENOrdering Facility: [facility] Address: [address] [place] [address] Performed By: #### 2 4323-8 ####[facility]ORATORYCLIA [id number] [place] [address] [place] ALP [Catalytic activity/Vol] 129 U/L High 34-123 [facility] Comment on above: Order Comment: Speci men Type: BLOOD SPECIMENOrdering Facility: [facility] Address: [address] [place] [address] Performed By: #### 2 4323-8 ####[facility]ORATORYCLIA [id number] [address] [place] ALT With P-5'-P [Catalytic activity/Vol] 21 U/L Normal 7-38 [facility] Comment on above: Order Comment: Speci men Type: BLOOD SPECIMENOrdering Facility: [facility] Address: [address] [place] [address] Performed By: #### 2 4323-8 ####[facility]ORATORYCLIA [id number] [address] STATES OF [facility] Anion gap [Moles/Vol] 10 mmol/L Normal 9-18 [facility] Comment on above: Order Comment: Speci men Type: BLOOD SPECIMENOrdering Facility: [facility] Address: [address] [place] [address] Performed By: #### 2 4323-8 ####[facility]ORATORYCLIA [id number] [address] STATES [facility] AST With P-5'-P [Catalytic activity/Vol] 19 U/L Normal 13-35 [facility] Comment on above: Order Comment: Speci men Type: BLOOD SPECIMENOrdering Facility: [facility] Address: [address] [place] [address] Performed By: #### 2 4323-8 ####[facility]ORATORYCLIA [id number] [address] [place] Bilirubin [Mass/Vol] 0.6 mg/dL Normal 0.2-1.3 [facility] Comment on above: Order Comment: Speci men Type: BLOOD SPECIMENOrdering Facility: [facility] Address: [address] [place] [address] Performed By: #### 2 4323-8 ####[facility]ORATORYCLIA [id number] [address] OF [facility] Calcium [Mass/Vol] 8.6 mg/dL Normal 8.5-10.2 [facility] Comment on above: Order Comment: Speci men Type: BLOOD SPECIMENOrdering Facility: [facility] Address: [address] [place] [address] Performed By: #### 2 4323-8 ####[facility]ORATORYCLIA [id number] [address] OF [facility] Chloride [Moles/Vol] 105 mmol/L Normal 97-105 [facility] Comment on above: Order Comment: Speci men Type: BLOOD SPECIMENOrdering Facility: [facility] Address: [address] [place] [address] Performed By: #### 2 4323-8 ####[facility]ORATORYCLIA [id number] [address] STATES OF [facility] CO2 [Moles/Vol] 21 mmol/L Low 22-30 [facility] Comment on above: Order Comment: Speci men Type: BLOOD SPECIMENOrdering Facility: [facility] Address: [address] [place] [address] Performed By: #### 2 4323-8 ####[facility]ORATORYCLIA [id number] [address] Creatinine [Mass/Vol] 0.88 mg/dL Normal 0.58-0.96 [facility] Comment on above: Order Comment: Speci men Type: BLOOD SPECIMENOrdering Facility: [facility] Address: [address] [place] [address] Performed By: #### 2 4323-8 ####[facility]ORATORYCLIA [id number] [address] ESTIMATED GLOMERULAR FILTRATION RATE 66 mL/min/1.73m??? Normal >=60 [facility] Comment on above: Order Comment: Speci men Type: BLOOD SPECIMENOrdering Facility: [facility] Address: [address] [place] [address] Result Comment: Isa mated Glomerular Filtration Rate [...] actual GFR. Performed By: #### 2 4323-8 ####[facility]ORATORYCLIA [id number] [place] [address] [place] Glucose [Mass/Vol] 95 mg/dL Normal 74-99 [facility] Comment on above: Order Comment: Rhina mason Type: BLOOD SPECIMENOrdering Facility: [facility] Address: [address] [place] [address] Result Comment: The [place] [employer] Association (ADA) provides guidance for cutoff [...] Standards of Medical Care in Diabetes 2016, [place] [employer]. Diabetes Care. 2016.39(Suppl 1). Performed By: #### 2 4323-8 ####[facility]ORATORYCLIA [id number] [address] [place] Potassium [Moles/Vol] 4.7 mmol/L Normal 3.7-5.1 [facility] Comment on above: Order Comment: Rhina mason Type: BLOOD SPECIMENOrdering Facility: [facility] Address: [address] [address] Performed By: #### 2 4323-8 ####[facility]ORATORYCLIA [id number] [place] [address] [place] Protein [Mass/Vol] 5.3 g/dL Low 6.3-8.0 [facility] Comment on above: Order Comment: Rhina mason Type: BLOOD SPECIMENOrdering Facility: [facility] Address: [address] [place] [address] Performed By: #### 2 4323-8 ####[facility]ORATORYCLIA [id number] [address] [place] Sodium [Moles/Vol] 136 mmol/L Normal 136-144 [facility] Comment on above: Order Comment: Rhina mason Type: BLOOD SPECIMENOrdering Facility: [facility] Address: [address] [place] [address] Performed By: #### 2 4323-8 ####[facility]ORATORYCLIA [id number] [address] STATES [facility] Urea nitrogen [Mass/Vol] 7 mg/dL Normal 7-21 [facility] Comment on above: Order Comment: Rhina mason Type: BLOOD SPECIMENOrdering Facility: [facility] Address: [address] [place] [address] Performed By: #### 2 4323-8 ####[facility]ORATORYCLIA [id number] [address] [place] H. pylori IgG IA Qlon 2021 H. PYLORI IGG, QUAL Negative Normal Negative [facility] Comment on above: Order Comment: Rhina mason Type: BLOOD SPECIMENOrdering Facility: [facility] Address: [address] [place] [address] Result Comment: Shakeel ot exclude H. pylori infection if the specimen collected 3-4 weeks after onset of symptoms. Performed By: #### 1 7859-0 ####[facility] LABCLIA [id number] [facility] [id number] [place] PT panel Coag (PPP)on 2021 INR Coag (PPP) [Relative time] {INR} Low 0.9-1.3 [facility] Comment on above: Order Comment: Rhina mason Type: BLOOD SPECIMEN [facility] Address: [address] [place] [address] Result Comment: Mayra min K Antagonist (VKA) Therapeutic Range: INR 2 to 3 (Target INR of 2.5) Note: For patients treated with VKA drugs, such as warfarin, the [place] [employer] 2012 Guideline recommends [...] 2012, 141:7S-47S Daren RA, et al. [facility] 2017, 70: 252-289 Performed By: #### T SCR #### [facility] [place] [id number] [address] [place] [address] OF [facility] PT Coag (PPP) [Time] 9.9 s Normal 9.7-13.0 [facility] Comment on above: Order Comment: Speci men Type: BLOOD SPECIMEN [facility] Address: [address] [place], [place] [address] Performed By: #### T SCR #### [facility] CLIA [id number] [address] OF [facility] THERAPY NTon 06-22-2022 THERAPY NT HNO ID: [id number] Author: MAMIE Mortensen/Weston Service: Occupational Therapy Author Type: Occupational Therapist Type: Therapy (PT/OT/Speech/Resp) Filed: 06/22/2022 11:27 AM Note Text: Occupational Therapy Evaluation SERVICE DATE: 06/22/2022 SERVICE TIME: 1037 to 1105 ROOM: [place] [address] Recommended Discharge Disposition: Subacute/SNF Recommended Discharge Disposition [...] time Occupational Factors 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 Normal [facility] US ARTERIAL PVR LOWERon 12-0 US ARTERIAL PVR LOWER * * *Final Report* * * DATE OF EXAM: Jun 22 2022 7:43AM A2U 1107 - US ARTERIAL PVR LOWER / PROCEDURE REASON: Arterial embolism * * * * Physician Interpretation * * * * Non-Invasive Vascular Laboratory [facility] Lower Extremity Arterial Physiology Study Bilateral/Complete Date of service/time: 06/22/2022 7:12:00 [facility] Name: MEL CASTILLO Date of : [...] all veins 06/16/22. Dopplers study was done. GRADUATE TEACHING ASSISTANT - Biphasic ATHLETIC INSTRUCTOR - Multiphasic - possible stenosis DP - Monophasic [place] - Biphasic. Technologist: Azar Holcomb Gosia Ordering physician: DWAYNE ZAIDI Interpreting physician: Supriya Ponce MD Final (Updated) RP Cardiovascular Technician: IRENE Transcriarley Date/Time: Jun 22 2022 7:12A Dictated by : SUPRIYA PONCE MD This examination was interpreted and the report reviewed and electronically signed by: SUPRIYA PONCE MD on Jun 24 2022 1:27PM EST [id number] Normal [facility] aPTT PPPon 06-22-2022 aPTT Coag (PPP) [Time] 43.0 s High 23.0-32.4 [facility] Comment on above: Order Comment: Speci men Type: BLOOD SPECIMENOrdering Facility: [facility] Address: [address] [place] [address] Performed By: #### 1 4979-9 ####[facility]ORATORYCLIA [id number] [place] [address] [place] aPTT Coag (PPP) [Time] 25.6 s Normal 23.0-32.4 [facility] Comment on above: Order Comment: Speci men Type: BLOOD SPECIMEN [facility] Address: [place] [address] Performed By: #### T SCR #### [facility] CLIA [id number] [address] [place] [address] [place] ANES POSTPROC EVALon 022 ANES POSTPROC EVAL HNO ID: [id number] Author: Olu Vasquez MD Service: Anesthesiology Author Type: Physician Type: Anesthesia Postprocedure Evaluation Filed: 06/21/2022 3:20 PM Note Text: POST ANESTHESIA EVALUATION NOTE : 1940 Procedure Summary Date: 06/21/22 Room / Location: [facility] Anesthesia Start: 1134 Anesthesia Stop: [...] June 21, 2022 TIME: 3:19 PM CSN: [id number] Normal [facility] ANES PRE-OPon 06-21-2022 [facility] PRE-OP HNO ID: [id number] Author: Olu Vasquez MD Service: Anesthesiology Author [...] and consent discussed: yes. Patient / Responsible Alliance Party agrees to proceed: yes Patient / [...] Olu Dietrich (more content not included)... Normal [facility] CONSULT PROGon 06-21-2022 CONSULT PROG HNO ID: [id number] Author: Fidel Carmen APRN.STRETCHING MACHINE TENDER FRAME Service: Wound/Ostomy Author Type: Nurse Practitioner Type: Consult Progress Note Filed: 06/21/2022 1:41 PM Note Text: WOUND CARE SERVICE CONSULT MANAGER UNIVERSITY NOTE SERVICE DATE: 06/21/2022 SERVICE TIME: 941 TIME SPENT (minutes): 30 REASON FOR CONSULT: MAD buttocks, atypical wound Right middle finger. CHIEF COMPLAINT: Right middle finger Subjective HISTORY OF PRESENT ILLNESS: Ms. Jose Alberto Castillo is a 81 year old female who is seen today with Delia Bruno, Wound/quality assurance assessor, and presented to hospital with complaints of [...] 06/21/2022 9:57 AM Wound Image Site Assessment [place];Red (small open area noted) Allie-Wound Assessment [place];Intact Drainage Amount None Odor None Treatments Cleansed;Protective Barrier Ointment Dressing Foam- Adhesive Dressing Changed Changed Dressing Status Clean;Dry;Intact Active Orders Date Order Priority Status Authorizing Provider 06/21/22 1248 DRESSING CARE (SPECIFY) (ME,AL) Routine Active Fidel Carmen APRN.STRETCHING MACHINE TENDER FRAME - Specify:: Apply allevyn foam to coccyx, peel down every shift to assess skin and to apply zinc oxide, change every 3 days or if soiled. 06/21/22 1248 zinc oxide 20 % Active Fidel Carmen APRN.STRETCHING MACHINE TENDER FRAME Wound 06/21/22 0948 Atypical Wound Finger (Comment which one) Right (Active) Assessments 06/21/2022 9:48 AM Wound Image Site Assessment [place];White (shiney) Allie-Wound Assessment Intact Shape irregular Drainage Description Sanguineous (intermittent, per pt.) Drainage Amount None Odor None Treatments Cleansed Dressing Xeroform;Gauze (more content not included)... [facility] Hemoglobin (Bld) [Mass/Vol] 6.9 g/dL Low 11.5-15.5 [facility] Comment on above: Order Comment: Speci men Type: BLOOD SPECIMENOrdering Facility: [facility] Address: [address] [place] [address] Performed By: #### 3 2355-0 #### [facility] CLIA [id number] [address] [place] [address] [facility] OPERATIVE NOon 06-21-2022 OPERATIVE NO HNO ID: [id number] Author: Sim Elizabeth MD Service: Gastroenterology Author Type: Physician Type: Operative Report Filed: 06/21/2022 12:01 PM Note Text: OPERATIVE/PROCEDURE REPORT LOG ID: [id number] Surgery/Procedure Date: 06/21/2022 Incision/Procedure Start Time: 11:44 AM Incision Close/Procedure End Time: 11:49 AM Surgeon(s)/Proceduralis t(s) and Restorer [employer](s): Surgeon(s) and Role: * Sim Elizabeth MD [...] 21, 2022 TIME: 11:53 AM PAGER/CONTACT #: [phone] Normal [facility] THERAPY NTon 06-21-2022 THERAPY NT HNO ID: [id number] Author: Miranda Burroughs PT Service: Physical Therapy Author Type: Physical Therapist Type: Therapy (PT/OT/Speech/Resp) Filed: 06/21/2022 10:12 AM Note Text: Physical Therapy Evaluation SERVICE DATE: 06/21/2022 SERVICE TIME: 0832 to 0855 ROOM: [place] [address] Recommended Discharge Disposition: Subacute/SNF Recommended Discharge Disposition [...] gait and mobility-other Interventions Provided: Evaluation;Therapeutic Activity (08458) $ Evaluation-Moderate (13159) Billed Units: 1 unit Therapeutic Activity (63470) Treatment Minutes: 8 $ Therapeutic Activity (14574) Billed Units: 1 unit Educated pt on [...] therapeutic skills (more content not included)... Normal [facility] TYPE + SCREENon 06-21-2022 ABO AB Normal [facility] Comment on above: Order Comment: Speci men Type: BLOOD SPECIMEN [facility] Address: [address] [place] [address] Performed By: #### T SCR #### [facility] CLIA [id number] [address] [place] [address] HISTORICAL AB SCR STATUS Negative [facility] Comment on above: Order Comment: Speci men Type: BLOOD SPECIMEN [facility] Address: [address] [place] [address] Performed By: #### T SCR #### [facility] CLIA [id number] [address] [place] [address] Rh Nom (Bld) Positive [facility] Comment on above: Order Comment: Speci men Type: BLOOD SPECIMEN [facility] Address: [address] [place] [address] Performed By: #### T SCR #### [facility] CLIA [id number] [address] TYPE AND SCREEN EXPIRATION 06/24/2022 23:59 [facility] Comment on above: Order Comment: Speci men Type: BLOOD SPECIMEN [facility] Address: [address] [place] [address] Performed By: #### T SCR #### [facility] CLIA [id number] [address] [facility] ALLIED HEALTHon 06-20-2022 ALLIED HEALTH HNO ID: [id number] Author: RT Tamica(Jose) Service: Radiology Author Type: Technologist Type: Allied [...] June 20, 2022 TIME: 3:15 PM Normal [facility] Basic metabolic 2000 panelon 06-20-2022 Anion gap [Moles/Vol] 8 mmol/L Low 9-18 [facility] Comment on above: Order Comment: Speci men Type: BLOOD SPECIMENOrdering Facility: [facility] Address: [address] [place] [address] Performed By: #### 2 4321-2 ####[facility]ATORYCLIA [id number] [place] [address] [place] Calcium [Mass/Vol] 8.5 mg/dL Normal 8.5-10.2 [facility] Comment on above: Order Comment: Speci men Type: BLOOD SPECIMENOrdering Facility: [facility] Address: [address] [place] [address] Performed By: #### 2 4321-2 ####[facility]ATORYCLIA [id number] [place] [address] [place] Chloride [Moles/Vol] 106 mmol/L High 97-105 [facility] Comment on above: Order Comment: Speci men Type: BLOOD SPECIMENOrdering Facility: [facility] Address: [address] [place] [address] Performed By: #### 2 4321-2 ####[facility]ATORYCLIA [id number] [place] [address] [place] CO2 [Moles/Vol] 22 mmol/L Normal 22-30 [facility] Comment on above: Order Comment: Speci men Type: BLOOD SPECIMENOrdering Facility: [facility] Address: [address] [place] [address] Performed By: #### 2 4321-2 ####[facility]ATORYCLIA [id number] [place] [address] [place] Creatinine [Mass/Vol] 0.84 mg/dL Normal 0.58-0.96 [facility] Comment on above: Order Comment: Speci men Type: BLOOD SPECIMENOrdering Facility: [facility] Address: [address] [place] [address] Performed By: #### 2 4321-2 ####[facility] LABORATORYCLIA [id number] [place] [id number] [place] ESTIMATED GLOMERULAR FILTRATION RATE 69 mL/min/1.73m??? Normal >=60 [facility] Comment on above: Order Comment: Speci men Type: BLOOD SPECIMENOrdering Facility: [facility] Address: [address] [place] [address] Result Comment: Isa mated Glomerular Filtration Rate [...] actual GFR. Performed By: #### 2 4321-2 ####[facility] [id number] [place] [id number] [place] Glucose [Mass/Vol] 92 mg/dL Normal 74-99 [facility] Comment on above: Order Comment: Speci isabella Type: BLOOD SPECIMENOrdering Facility: [facility] Address: [address] [place] [address] Result Comment: The [place] Diabetes Association (ADA) provides guidance for cutoff [...] Standards of Medical Care in Diabetes 2016, [place] [employer]. Diabetes Care. 2016.39(Suppl 1). Performed By: #### 2 4321-2 ####[facility] LABORATORYCLIA [id number] [place] [id number] [place] Potassium [Moles/Vol] 4.7 mmol/L Normal 3.7-5.1 [facility] Comment on above: Order Comment: Speci men Type: BLOOD SPECIMENOrdering Facility: [facility] Address: [address] [place] [address] Performed By: #### 2 4321-2 ####[facility] LABORATORYCLIA [id number] [place] [address] [place] Sodium [Moles/Vol] 136 mmol/L Normal 136-144 [facility] Comment on above: Order Comment: Speci men Type: BLOOD SPECIMENOrdering Facility: [facility] Address: [address] [place] [address] Performed By: #### 2 4321-2 ####[facility] LABORATORYCLIA [id number] [address] STATES [facility] Urea nitrogen [Mass/Vol] 16 mg/dL Normal 7-21 [facility] Comment on above: Order Comment: Speci men Type: BLOOD SPECIMENOrdering Facility: [facility] Address: [address] [place] [address] Performed By: #### 2 4321-2 ####[facility] LABORATORYCLIA [id number] [place] [address] [place] CBC panel Auto (Bld)on 06-20 Erythrocyte distribution width (RBC) [Ratio] 15.9 % High 11.5-15.0 [facility] Comment on above: Order Comment: Speci men Type: BLOOD SPECIMENOrdering Facility: [facility] Address: [address] [place] [address] Performed By: #### 3 2355-0 #### [facility] CLIA [id number] [address] [place] [address] [place] [facility] Hematocrit (Bld) [Volume fraction] 23.9 % Low 36.0-46.0 [facility] Comment on above: Order Comment: Speci men Type: BLOOD SPECIMENOrdering Facility: [facility] Address: [address] [place] [address] Performed By: #### 3 2355-0 #### [facility] CLIA [id number] [address] Hemoglobin (Bld) [Mass/Vol] 7.8 g/dL Low 11.5-15.5 [facility] Comment on above: Order Comment: Speci men Type: BLOOD SPECIMENOrdering Facility: [facility] Address: [address] [place] [address] Performed By: #### 3 2355-0 #### [facility] CLIA [id number] [address] MCH (RBC) [Entitic mass] 30.7 pg Normal 26.0-34.0 [facility] Comment on above: Order Comment: Speci men Type: BLOOD SPECIMENOrdering Facility: [facility] Address: [address] [place] [address] Performed By: #### 3 2355-0 #### [facility] CLIA [id number] [address] MCHC (RBC) [Mass/Vol] 32.6 g/dL Normal 30.5-36.0 [facility] Comment on above: Order Comment: Speci men Type: BLOOD SPECIMENOrdering Facility: [facility] Address: [address] [place] [address] Performed By: #### 3 2355-0 #### [facility] CLIA [id number] [address] MCV (RBC) [Entitic vol] 94.1 fL Normal 80.0-100.0 [facility] Comment on above: Order Comment: Speci men Type: BLOOD SPECIMENOrdering Facility: [facility] Address: [address] [place] [address] Performed By: #### 3 2355-0 #### [facility] CLIA [id number] [address] Nucleated RBC (Bld) [#/Vol] 0.09 10*3/uL High <0.01 [facility] Comment on above: Order Comment: Speci men Type: BLOOD SPECIMENOrdering Facility: [facility] Address: [address] [address] Performed By: #### 3 2355-0 #### [facility] CLIA [id number] [address] [place] Platelet mean volume (Bld) [Entitic vol] 9.8 fL Normal 9.0-12.7 [facility] Comment on above: Order Comment: Speci men Type: BLOOD SPECIMENOrdering Facility: [facility] Address: [address] [address] Performed By: #### 3 2354-0 #### [facility] CLIA [id number] [address] [place] Platelets (Bld) [#/Vol] 233 10*3/uL Normal 150-400 [facility] Comment on above: Order Comment: Speci men Type: BLOOD SPECIMENOrdering Facility: [facility] Address: [address] [address] Performed By: #### 3 5-0 #### [facility] CLIA [id number] [address] [place] RBC (Bld) [#/Vol] 2.54 10*6/uL Low 3.90-5.20 [facility] Comment on above: Order Comment: Speci men Type: BLOOD SPECIMENOrdering Facility: [facility] Address: [address] [address] Performed By: #### 3 5-0 #### [facility] CLIA [id number] [address] [place] WBC (Bld) [#/Vol] 9.90 10*3/uL Normal 3.70-11.00 [facility] Comment on above: Order Comment: Speci men Type: BLOOD SPECIMENOrdering Facility: [facility] Address: [address] [address] Performed By: #### 3 5-0 #### [facility] CLIA [id number] 1 [place] [address] [place] CONSULTon 06-20-2022 CONSULT HNO ID: [id number] Author: Christine Edouard MD Service: ? Author [...] needed woul (more content not included)... Normal [facility] CT ABD/PEL W IVCONon 022 CT ABD/PEL W IVCON * * *Final Report* * * DATE OF EXAM: Jun 20 2022 2:57PM [facility] 0530 - CT ABD/PEL W IVCON [...] bilateral pleural effusions, larger on the right. Agricultural Lender (topogram) images: No additional findings. IMPRESSION: Acute sigmoid diverticulitis. No evidence of perforation or diverticular abscess. Consolidation and volume loss with bronchial wall thickening in both lower lobes and right middle lobe. Small bilateral pleural effusions, larger on the right. Diffuse subcutaneous edema of the left flank extending into the thigh. Bilateral renal cortical scarring and small cysts. Atherosclerotic arterial and aortic calcifications. Cardiovascular Technician: DEVEN Transcribe Date/Time: Jun 20 2022 3:18P Dictated by : DI MAYES MD This examination was interpreted and the report reviewed and electronically signed by: DI MAYES MD on Jun 20 2022 3:24PM EST [id number] Normal [facility] Hgb Bld-mCncon 06-20-2022 Hemoglobin (Bld) [Mass/Vol] 7.0 g/dL Low 11.5-15.5 [facility] Comment on above: Order Comment: Speci men Type: BLOOD SPECIMEN [facility] Address: [address] [place] [id number] Performed By: #### T SCR #### [facility] CLIA [id number] [address] [place] [address] [place] ALLIED HEALTHon 06-19-2022 ALLIED HEALTH HNO ID: [id number] Author: Parul Ryan RN Service: Infection Prevention Author Type: ? Type: Allied Health Filed: 06/19/2022 5:49 PM Note Text: INFECTION PREVENTION NOTE Admission Date: 06/16/2022 Patient meets ?COVID Resolved? criteria and isolation has been discontinued as per [facility] guidance. SIGNATURE: Parul Ryan RN PATIENT NAME: Mel Castillo DATE: June 19, 2022 TIME: 5:49 PM PAGER/CONTACT #: Infection Prevention, [id number] Infection Prevention after hours/weekend pager: [phone] Normal [facility] Basic metabolic 2000 panelon 06-19-2022 Anion gap [Moles/Vol] 5 mmol/L Low 9-18 [facility] Comment on above: Order Comment: Speci men Type: BLOOD SPECIMENOrdering Facility: [facility] Address: [address] [place] [address] Performed By: #### 3 2355-0 #### [facility] CLIA [id number] 1 [place] [address] [place] Calcium [Mass/Vol] 8.1 mg/dL Low 8.5-10.2 [facility] Comment on above: Order Comment: Speci men Type: BLOOD SPECIMENOrdering Facility: [facility] Address: [address] [place] [address] Performed By: #### 3 2355-0 #### [facility] CLIA [id number] 1 [place] [address] [place] Chloride [Moles/Vol] 105 mmol/L Normal 97-105 [facility] Comment on above: Order Comment: Speci men Type: BLOOD SPECIMENOrdering Facility: [facility] Address: [address] [place] [address] Performed By: #### 3 2355-0 #### [facility] CLIA [id number] 1 [place] [address] [place] CO2 [Moles/Vol] 23 mmol/L Normal 22-30 [facility] Comment on above: Order Comment: Speci isabella Type: BLOOD SPECIMENOrdering Facility: [facility] Address: [address] [address] Performed By: #### 3 2355-0 #### [facility] CLIA [id number] [address] [facility] Creatinine [Mass/Vol] 0.94 mg/dL Normal 0.58-0.96 [facility] Comment on above: Order Comment: Specrobson mason Type: BLOOD SPECIMENOrdering Facility: [facility] Address: [address] [place] [address] Performed By: #### 3 2355-0 #### [facility] CLIA [id number] [address] ESTIMATED GLOMERULAR FILTRATION RATE 61 mL/min/1.73m??? Normal >=60 [facility] Comment on above: Order Comment: Rhina mason Type: BLOOD SPECIMENOrdering Facility: [facility] Address: [address] [place] [address] Result Comment: Isa mated Glomerular Filtration Rate [...] GFR. Performed By: #### 3 2355-0 #### [facility] CLIA [id number] [address] [place] [address] Glucose [Mass/Vol] 115 mg/dL High 74-99 [facility] Comment on above: Order Comment: Rhina mason Type: BLOOD SPECIMENOrdering Facility: [facility] Address: [address] [place] [address] Result Comment: The [place] Diabetes Association (ADA) provides guidance for cutoff [...] Standards of Medical Care in Diabetes 2016, [place] [employer]. Diabetes Care. 2016.39(Suppl 1). Performed By: #### 3 2355-0 #### [facility] CLIA [id number] [address] Potassium [Moles/Vol] 4.4 mmol/L Normal 3.7-5.1 [facility] Comment on above: Order Comment: Speci men Type: BLOOD SPECIMENOrdering Facility: [facility] Address: [address] [place] [address] Performed By: #### 3 2355-0 #### [facility] CLIA [id number] [address] Sodium [Moles/Vol] 133 mmol/L Low 136-144 [facility] Comment on above: Order Comment: Speci isabella Type: BLOOD SPECIMENOrdering Facility: [facility] Address: [address] [address] Performed By: #### 3 2355-0 #### [facility] CLIA [id number] [address] Urea nitrogen [Mass/Vol] 22 mg/dL High 7-21 [facility] Comment on above: Order Comment: Speci men Type: BLOOD SPECIMENOrdering Facility: [facility] Address: [address] [address] Performed By: #### 3 2355-0 #### [facility] CLIA [id number] [address] CBC panel Auto (Bld)on 06-19 Erythrocyte distribution width (RBC) [Ratio] 15.6 % High 11.5-15.0 [facility] Comment on above: Order Comment: Speci men Type: BLOOD SPECIMENOrdering Facility: [facility] Address: [address] [address] Performed By: #### 5 8410-2 ####[facility]IA [id number] [address] Hematocrit (Bld) [Volume fraction] 24.0 % Low 36.0-46.0 [facility] Comment on above: Order Comment: Speci men Type: BLOOD SPECIMENOrdering Facility: [facility] Address: [address] [place] [address] Performed By: #### 5 8410-2 ####[facility]ORY[facility]IA [id number] [address] Hemoglobin (Bld) [Mass/Vol] 7.6 g/dL Low 11.5-15.5 [facility] Comment on above: Order Comment: Speci men Type: BLOOD SPECIMENOrdering Facility: [facility] Address: [address] [place] [address] Performed By: #### 5 8410-2 ####[facility]ORYCLIA [id number] [address] MCH (RBC) [Entitic mass] 29.9 pg Normal 26.0-34.0 [facility] Comment on above: Order Comment: Speci men Type: BLOOD SPECIMENOrdering Facility: [facility] Address: [address] [place] [address] Performed By: #### 5 8410-2 ####[facility]ORYCLIA [id number] [address] [place] MCHC (RBC) [Mass/Vol] 31.7 g/dL Normal 30.5-36.0 [facility] Comment on above: Order Comment: Speci men Type: BLOOD SPECIMENOrdering Facility: [facility] Address: [address] [place] [address] Performed By: #### 5 8410-2 ####[facility]ORYCLIA [id number] [address] MCV (RBC) [Entitic vol] 94.5 fL Normal 80.0-100.0 [facility] Comment on above: Order Comment: Speci men Type: BLOOD SPECIMENOrdering Facility: [facility] Address: [address] [place] [address] Performed By: #### 5 8410-2 ####[facility]ORYCLIA [id number] [address] [place] Nucleated RBC (Bld) [#/Vol] 0.04 10*3/uL High <0.01 [facility] Comment on above: Order Comment: Speci men Type: BLOOD SPECIMENOrdering Facility: [facility] Address: [address] [place] [address] Performed By: #### 5 8410-2 ####[facility]ORYCLIA [id number] [address] [facility] Platelet mean volume (Bld) [Entitic vol] 10.0 fL Normal 9.0-12.7 [facility] Comment on above: Order Comment: Speci men Type: BLOOD SPECIMENOrdering Facility: [facility] Address: [address] [place] [address] Performed By: #### 5 8410-2 ####[facility]ORYCLIA [id number] [address] Platelets (Bld) [#/Vol] 219 10*3/uL Normal 150-400 [facility] Comment on above: Order Comment: Speci men Type: BLOOD SPECIMENOrdering Facility: [facility] Address: [address] [place] [address] Performed By: #### 5 8410-2 ####[facility]ORYCLIA [id number] [address] [place] RBC (Bld) [#/Vol] 2.54 10*6/uL Low 3.90-5.20 [facility] Comment on above: Order Comment: Speci men Type: BLOOD SPECIMENOrdering Facility: [facility] Address: [address] [place], [place] [address] Performed By: #### 5 8410-2 ####[facility]ORYCLIA [id number] [address] WBC (Bld) [#/Vol] 8.55 10*3/uL Normal 3.70-11.00 [facility] Comment on above: Order Comment: Speci men Type: BLOOD SPECIMENOrdering Facility: [facility] Address: [address] [address] Performed By: #### 5 8410-2 ####[facility]ORYCLIA [id number] [address] [place] Hemoccult Stl Ql IAon 2021 Lower GI hemoglobin IA Ql (Stl) Positive Abnormal Negative [facility] Comment on above: Order Comment: Speci men Type: BLOOD SPECIMEN [facility] Address: [address] [place] [address] Performed By: #### T SCR #### [facility] CLIA [id number] [address] [place] Hgb Bld-mCncon 06-19-2022 Hemoglobin (Bld) [Mass/Vol] 7.6 g/dL Low 11.5-15.5 [facility] Comment on above: Order Comment: Speci men Type: BLOOD SPECIMENOrdering Facility: [facility] Address: [address] [place] [address] Performed By: #### 7 18-7 ####[facility]ORYCLIA [id number] [address] [place] Magnesium SerPl-mCncon 06-19 Magnesium [Mass/Vol] 1.9 mg/dL Normal 1.7-2.3 [facility] Comment on above: Order Comment: Speci men Type: BLOOD SPECIMENOrdering Facility: [facility] Address: [address] [place] [address] Performed By: #### 3 2355-0 #### [facility] CLIA [id number] [address] [place] OPERATIVE NOon 06-19-2022 OPERATIVE NO HNO ID: [id number] Author: Frida Rodriguez MD Service: Vascular Surgery Author Type: Physician Type: Operative Report Filed: 06/19/2022 2:59 PM Note Text: [facility] - Operative Report MEL GUADARRAMA : 1940 AGE: 81. SEX: F PATIENT TYPE: I HOSP SVC: ICU LOCATION: [facility] ATTENDING PHYSICIAN: DWAYNE ZAIDI CSN NUMBER: [id number] DATE OF SURGERY/PROCEDURE: 06/16/2022 INCISION/PROCEDURE START TIME: 5:01 PM INCISION CLOSE/PROCEDURE END TIME: 6:58 PM PREOPERATIVE DIAGNOSIS: Left lower extremity deep vein thrombosis. POSTOPERATIVE DIAGNOSIS: Left lower extremity deep vein thrombosis. SURGEON: Frida Rodriguez MD HAND HARDENER: Resident, Emanuel Hull SURGERY/PROCEDURE: Venogram with intravascular [...] micropuncture needle and serially upsized to a 5-Malagasy sheath. A venogram was then performed, which [...] time, the sheath was upsized to an 8-Malagasy sheath. An intravascular ultrasound was performed. This [...] unit for further monitoring. Frida Rodriguez MD LM:[id number] Normal [facility] Phosphate SerPl-mCncon 06-19 Phosphate [Mass/Vol] 2.4 mg/dL Low 2.7-4.8 [facility] Comment on above: Order Comment: Speci men Type: BLOOD SPECIMENOrdering Facility: [facility] Address: [address] [place] [address] Performed By: #### 3 2355-0 #### [facility] CLIA [id number] [address] [place] [address] aPTT PPPon 06-19-2022 aPTT Coag (PPP) [Time] 46.9 s High 23.0-32.4 [facility] Comment on above: Order Comment: Speci men Type: BLOOD SPECIMENOrdering Facility: [facility] Address: [address] [place] [address] Performed By: #### 1 4979-9 ####[facility] [id number] [address] aPTT Coag (PPP) [Time] 83.8 s High 23.0-32.4 [facility] Comment on above: Order Comment: Speci men Type: BLOOD SPECIMENOrdering Facility: [facility] Address: [address] [place] [address] Performed By: #### 3 2355-0 #### [facility] CLIA [id number] [address] [facility] Basic metabolic 2000 panelon 06-18-2022 Anion gap [Moles/Vol] 10 mmol/L Normal 9-18 [facility] Comment on above: Order Comment: Speci men Type: BLOOD SPECIMENOrdering Facility: [facility] Address: [address] [address] Performed By: #### 2 4321-2, 28039-1, , 2776-07 ####[facility]ORYCLIA [id number] [place] [address] [place] Calcium [Mass/Vol] 8.0 mg/dL Low 8.5-10.2 [facility] Comment on above: Order Comment: Speci men Type: BLOOD SPECIMENOrdering Facility: [facility] Address: [address] [place] [address] Performed By: #### 2 4321-2, 30390-3, , 2776-07 ####[facility]ORYCLIA [id number] [place] [address] [place] Chloride [Moles/Vol] 102 mmol/L Normal 97-105 [facility] Comment on above: Order Comment: Speci men Type: BLOOD SPECIMENOrdering Facility: [facility] Address: [address] [place] [address] Performed By: #### 2 4321-2, 19099-9, , 2776-07 ####[facility]ORYCLIA [id number] [place] [address] [place] CO2 [Moles/Vol] 21 mmol/L Low 22-30 [facility] Comment on above: Order Comment: Speci men Type: BLOOD SPECIMENOrdering Facility: [facility] Address: [address] [place] [address] Performed By: #### 2 4321-2, 73025-9, , 2776-07 ####[facility]ORYCLIA [id number] [place] [address] [place] Creatinine [Mass/Vol] 1.17 mg/dL High 0.58-0.96 [facility] Comment on above: Order Comment: Speci men Type: BLOOD SPECIMENOrdering Facility: [facility] Address: [address] [place] [address] Performed By: #### 2 4321-2, 66275-3, , 2776-07 ####[facility] COUNTYIA [id number] [address] [place] ESTIMATED GLOMERULAR FILTRATION RATE 47 mL/min/1.73m??? Low >=60 [facility] Comment on above: Order Comment: Rhina mason Type: BLOOD SPECIMENOrdering Facility: [facility] Address: [address] [place] [address] Result Comment: Isa mated Glomerular Filtration Rate [...] actual GFR. Performed By: #### 2 4321-2, 93128-8, , 2776-07 ####[facility] COUNTYIA [id number] [address] [place] Glucose [Mass/Vol] 112 mg/dL High 74-99 [facility] Comment on above: Order Comment: Rhina mason Type: BLOOD SPECIMENOrdering Facility: [facility] Address: [address] [place] [address] Result Comment: The [place] Diabetes Association (ADA) provides guidance for cutoff [...] Standards of Medical Care in Diabetes 2016, [place] [employer]. Diabetes Care. 2016.39(Suppl 1). Performed By: #### 2 4321-2, 37834-6, , 2776-07 ####[facility] COUNTYIA [id number] [address] [place] Potassium [Moles/Vol] 4.4 mmol/L Normal 3.7-5.1 [facility] Comment on above: Order Comment: Speci men Type: BLOOD SPECIMENOrdering Facility: [facility] Address: [address] [place] [address] Performed By: #### 2 4321-2, 87302-0, , 2776-07 ####[facility]ORYCLIA [id number] [address] STATES OF [facility] Sodium [Moles/Vol] 133 mmol/L Low 136-144 [facility] Comment on above: Order Comment: Speci men Type: BLOOD SPECIMENOrdering Facility: [facility] Address: [address] [place] [address] Performed By: #### 2 4321-2, 47903-2, , 2776-07 ####[facility] [id number] [address] STATES [facility] Urea nitrogen [Mass/Vol] 25 mg/dL High 7-21 [facility] Comment on above: Order Comment: Speci men Type: BLOOD SPECIMENOrdering Facility: [facility] Address: [address] [place] [address] Performed By: #### 2 4321-2, 60288-7, , 2776-07 ####[facility]ORYCLIA [id number] [address] STATES OF [facility] CBC panel Auto (Bld)on 06-18 Erythrocyte distribution width (RBC) [Ratio] 15.6 % High 11.5-15.0 [facility] Comment on above: Order Comment: Speci men Type: BLOOD SPECIMENOrdering Facility: [facility] Address: [address] [place] [address] Performed By: #### 5 8410-2 ####[facility]ORYCLIA [id number] [place] [address] [place] Hematocrit (Bld) [Volume fraction] 26.8 % Low 36.0-46.0 [facility] Comment on above: Order Comment: Speci men Type: BLOOD SPECIMENOrdering Facility: [facility] Address: [address] [place] [address] Performed By: #### 5 8410-2 ####[facility]ORYCLIA [id number] [address] [place] Hemoglobin (Bld) [Mass/Vol] 8.5 g/dL Low 11.5-15.5 [facility] Comment on above: Order Comment: Speci men Type: BLOOD SPECIMENOrdering Facility: [facility] Address: [address] [place] [address] Performed By: #### 5 8410-2 ####[facility]ORYCLIA [id number] [address] [place] MCH (RBC) [Entitic mass] 30.1 pg Normal 26.0-34.0 [facility] Comment on above: Order Comment: Speci men Type: BLOOD SPECIMENOrdering Facility: [facility] Address: [address] [place] [address] Performed By: #### 5 8410-2 ####[facility]ORYCLIA [id number] [address] [place] MCHC (RBC) [Mass/Vol] 31.7 g/dL Normal 30.5-36.0 [facility] Comment on above: Order Comment: Speci men Type: BLOOD SPECIMENOrdering Facility: [facility] Address: [address] [place] [address] Performed By: #### 5 8410-2 ####[facility]ORYCLIA [id number] [address] [place] MCV (RBC) [Entitic vol] 95.0 fL Normal 80.0-100.0 [facility] Comment on above: Order Comment: Speci men Type: BLOOD SPECIMENOrdering Facility: [facility] Address: [address] [place] [address] Performed By: #### 5 8410-2 ####[facility]ORYCLIA [id number] [place] [address] [place] Nucleated RBC (Bld) [#/Vol] 0.03 10*3/uL High <0.01 [facility] Comment on above: Order Comment: Speci men Type: BLOOD SPECIMENOrdering Facility: [facility] Address: [address] [place] [address] Performed By: #### 5 8410-2 ####[facility]ORYCLIA [id number] [address] [place] Platelet mean volume (Bld) [Entitic vol] 10.2 fL Normal 9.0-12.7 [facility] Comment on above: Order Comment: Speci men Type: BLOOD SPECIMENOrdering Facility: [facility] Address: [address] [place] [address] Performed By: #### 5 8410-2 ####[facility]ORYCLIA [id number] [address] [place] Platelets (Bld) [#/Vol] 234 10*3/uL Normal 150-400 [facility] Comment on above: Order Comment: Speci men Type: BLOOD SPECIMENOrdering Facility: [facility] Address: [address] [place] [address] Performed By: #### 5 8410-2 ####[facility]ORYCLIA [id number] [place] [address] [place] RBC (Bld) [#/Vol] 2.82 10*6/uL Low 3.90-5.20 [facility] Comment on above: Order Comment: Speci men Type: BLOOD SPECIMENOrdering Facility: [facility] Address: [address] [place] [address] Performed By: #### 5 8410-2 ####[facility]ORYCLIA [id number] [address] [place] WBC (Bld) [#/Vol] 8.77 10*3/uL Normal 3.70-11.00 [facility] Comment on above: Order Comment: Speci men Type: BLOOD SPECIMENOrdering Facility: [facility] Address: [place] [address] Performed By: #### 5 8410-2 ####[facility]ORYCLIA [id number] [place], [place] [id number] [place] [address] [facility] CONSULT PROGon 06-18-2022 CONSULT PROG HNO ID: [id number] Author: Jessica Colmenares APRN.STRETCHING MACHINE TENDER FRAME Service: Cardiovascular Medicine Author Type: Nurse Practitioner Type: Consult Progress Note Filed: 06/18/2022 2:46 PM Note Text: The ECHO reviewed, EF 59%. No significant valvular abnormalities. Chart reviewed, no further recommendations. Thank you, Jessica Colmenares APRN.STRETCHING MACHINE TENDER FRAME Normal [facility] CONSULT PROG HNO ID: [id number] Author: Cirilo Yip RPh Service: Pharmacy Author [...] Cirilo Yip RPh DATE/TIME: 06/18/2022 12:02 PM [facility] CONSULT PROG HNO ID: [id number] Author: Nimo Arzola MD Service: General Surgery [...] questions or concerns Mon-Fri 6a-5p please page [phone]. After 5pm and on Weekends and Holidays, please page [phone] if in ICU or [phone] if on RNF. Subjective SUBJECTIVE: No acute [...] 06/17/22699 - 06/18/2265806/18/22699 - 06/19/22 0659 Shift 4663-1850 9322-8909 0401-1513 24 Hour Total 8061-7601 1305-0947 9425-9278 24 Hour Total INTAKE IV 350 15 365 Volume (mL) 15 15 Volume (mL) (lactated ringers iv infusion) 350 350 Shift Total 350 15 365 OUTPUT Urine 2208 054 9853 Void (ml) 1450 1450 Output ( External Collection Device 06/16/22 2331) 400 400 # of BMs Stool Incontinence 1 x 1 x Number of BMs 1 x 1 x Shift Total 9254 636 3883 Weight (kg) 71.2 71.2 71.2 71.2 71.2 [...] Hospital Course/Operatio (more content not included)... Normal [facility] Lipid 1996 panelon Cholesterol [Mass/Vol] 139 mg/dL Normal <200 [facility] Comment on above: Order Comment: Speci men Type: BLOOD SPECIMENOrdering Facility: [facility] Address: [address] [place] [address] Result Comment: <200 mg/dL, Desirable 200-239 mg/dL, Borderline high >239 mg/dL, High Performed By: #### 2 4321-2, 45541-5, , 2776-07 ####[facility] LABORATORYCLIA [id number] [address] [place] Cholesterol in HDL [Mass/Vol] 56 mg/dL Normal >39 [facility] Comment on above: Order Comment: Samiri isabella Type: BLOOD SPECIMENOrdering Facility: [facility] Address: [address] [place] [address] Result Comment: 40-5 9 mg/dL, Acceptable >59 mg/dL, High: Negative risk factor for coronary heart disease <40 mg/dL, Low: Positive risk factor for coronary heart disease Performed By: #### 2 4321-2, 65373-7, , 2776-07 ####[facility]ORATORYCLIA [id number] [address] [facility] Cholesterol in LDL [Mass/Vol] 64 mg/dL Normal <100 [facility] Comment on above: Order Comment: Samiri men Type: BLOOD SPECIMENOrdering Facility: [facility] Address: [address] [place], [place] [address] Result Comment: <100 mg/dL, Optimal 100-129 mg/dL, Near optimal/above optimal 130-159 mg/dL, Borderline high 160-189 mg/dL, High >189 mg/dL, Very high Secondary prevention optimal LDL Cholesterol levels are recommended to be < 70 mg/dL Performed By: #### 2 4321-2, 92556-2, , 2776-07 ####[facility] LABORATORYCLIA [id number] [place] [address] [place] Cholesterol in LDL/Cholesterol in HDL [Mass ratio] 1.14 {ratio} Normal <2.54 [facility] Comment on above: Order Comment: Speci men Type: BLOOD SPECIMENOrdering Facility: [facility] Address: [address] [place] [address] Result Comment: Refe rence: 1. National Cholesterol Education Program ATP III Guideline At-A-Glance Quick Desk Reference: National Heart, Lung, and Blood [place]. National Institutes of Health. 2001: NIH Publication No. 01-3305. 2. An International Atherosclerosis Society position paper: global recommendations for the management of dyslipidemia: executive summary, Atherosclerosis. 2014: 232(2):410-413. Performed By: #### 2 4321-2, 78482-1, , 2776-07 ####[facility]ORATORYCLIA [id number] [place] [address] [place] Cholesterol in VLDL [Mass/Vol] 19 mg/dL Normal <30 [facility] Comment on above: Order Comment: Speci men Type: BLOOD SPECIMENOrdering Facility: [facility] Address: [address] Performed By: #### 2 4321-2, 60005-1, , 2776-07 ####[facility]ATORYCLIA [id number] [place] [address] [place] Cholesterol non HDL [Mass/Vol] 83 mg/dL Normal <130 [facility] Comment on above: Order Comment: Speci men Type: BLOOD SPECIMENOrdering Facility: [facility] Address: [address] [place] [address] Result Comment: <130 mg/dL, Optimal 130-159 mg/dL, Near optimal/above optimal 160-189 mg/dL, Borderline high 190-219 mg/dL, High >219 mg/dL, Very high Secondary prevention optimal non HDL Cholesterol levels are recommended to be <100 mg/dL Performed By: #### 2 4321-2, 19996-3, , 2776-07 ####[facility]ATORYCLIA [id number] [address] [facility] Cholesterol.total/Pastora sterol in HDL [Mass ratio] 2.48 {ratio} Normal <5.10 [facility] Comment on above: Order Comment: Speci men Type: BLOOD SPECIMENOrdering Facility: [facility] Address: [address] [place] [address] Performed By: #### 2 4321-2, 03839-1, , 2776-07 ####[facility]ATORYCLIA [id number] [address] [facility] FASTING TIME 8 hrs Normal [facility] Comment on above: Order Comment: Speci men Type: BLOOD SPECIMENOrdering Facility: [facility] Address: [address] [place] [address] Performed By: #### 2 4321-2, 78057-6, , 2776-07 ####[facility]ATORYCLIA [id number] [address] [place] Triglyceride [Mass/Vol] 93 mg/dL Normal <150 [facility] Comment on above: Order Comment: Speci men Type: BLOOD SPECIMENOrdering Facility: [facility] Address: [address] [place] [address] Result Comment: <150 mg/dL, Normal 150-199 mg/dL, Borderline high 200-499 mg/dL, High >499 mg/dL, Very high Performed By: #### 2 4321-2, 90898-6, , 2776-07 ####[facility]ATORYCLIA [id number] [place] [address] [place] Magnesium SerPl-mCncon 06-18 Magnesium [Mass/Vol] 2.1 mg/dL Normal 1.7-2.3 [facility] Comment on above: Order Comment: Speci men Type: BLOOD SPECIMENOrdering Facility: [facility] Address: [address] [place] [address] Performed By: #### 2 4321-2, 62519-1, 73905-7, 7- ####[facility]ATORYCLIA [id number] [place] [address] [place] Phosphate SerPl-mCncon 06-18 Phosphate [Mass/Vol] 3.3 mg/dL Normal 2.7-4.8 [facility] Comment on above: Order Comment: Speci men Type: BLOOD SPECIMENOrdering Facility: [facility] Address: [address] [place] [address] Performed By: #### 2 4321-2, 98241-6, , 2776- ####[facility]ATORYCLIA [id number] [address] [place] aPTT PPPon 06-18-2022 aPTT Coag (PPP) [Time] 37.2 s High 23.0-32.4 [facility] Comment on above: Order Comment: Speci men Type: BLOOD SPECIMENOrdering Facility: [facility] Address: [address] [place] [address] Performed By: #### 9 4500-6 #### [facility] CLIA [id number] [address] [place] aPTT Coag (PPP) [Time] 58.8 s High 23.0-32.4 [facility] Comment on above: Order Comment: Speci men Type: BLOOD SPECIMENOrdering Facility: [facility] Address: [address] [place] [address] Performed By: #### 1 4979-9 ####[facility]ATORYCLIA [id number] [address] [place] aPTT Coag (PPP) [Time] 127.7 s High 23.0-32.4 [facility] Comment on above: Order Comment: Speci men Type: BLOOD SPECIMEN [facility]ing [facility] Address: [facility] [place] [address] Performed By: #### T SCR #### [facility] CLIA [id number] [address] ALLIED HEALTHon 06-17-2022 ALLIED HEALTH HNO ID: [id number] Author: RT [place](R) Service: Radiology Author Type: [...] [place](R) June 17, 2022 9:30 AM Normal [facility] ALLIED HEALTH HNO ID: [id number] Author: Jeremías Bragg II Service: Infection Prevention [...] TIME: 8:27 AM PAGER/CONTACT #: Infection Prevention, [id number] Infection Prevention after hours/weekend pager: [phone] Normal [facility] ANES POSTPROC EVALon 022 ANES POSTPROC EVAL HNO ID: [id number] Author: Larry Moss MD Service: Anesthesiology Author Type: Anesthesiologist Type: Anesthesia Postprocedure Evaluation Filed: 06/17/2022 6:51 AM Note Text: POST ANESTHESIA EVALUATION NOTE : 1940 Procedure Summary Date: 06/16/22 Room / Location: [address] [place] Anesthesia Start: 1609 Anesthesia Stop: [...] June 17, 2022 TIME: 6:50 AM CSN: [id number] Normal [facility] Basic metabolic 2000 panelon 06-17-2022 Anion gap [Moles/Vol] 9 mmol/L Normal 9-18 [facility] Comment on above: Order Comment: Speci men Type: BLOOD SPECIMENOrdering Facility: [facility] Address: [address] [place] [address] Performed By: #### 2 4321-2, , 2776-07 ####[facility]ORATORYCLIA [id number] [place] [address] [place] Calcium [Mass/Vol] 7.9 mg/dL Low 8.5-10.2 [facility] Comment on above: Order Comment: Speci men Type: BLOOD SPECIMENOrdering Facility: [facility] Address: [address] [place] [address] Performed By: #### 2 4321-2, , 2776-07 ####[facility]ATORYCLIA [id number] [place] [address] [place] Chloride [Moles/Vol] 107 mmol/L High 97-105 [facility] Comment on above: Order Comment: Speci men Type: BLOOD SPECIMENOrdering Facility: [facility] Address: [address] [place] [address] Performed By: #### 2 4321-2, , 2776-07 ####[facility]ATORYCLIA [id number] [place] [address] [place] CO2 [Moles/Vol] 21 mmol/L Low 22-30 [facility] Comment on above: Order Comment: Speci men Type: BLOOD SPECIMENOrdering Facility: [facility] Address: [address] [place] [address] Performed By: #### 2 432-2, , 2776-07 ####[facility]ITALCL[facility] [id number] [place] [address] [place] Creatinine [Mass/Vol] 0.99 mg/dL High 0.58-0.96 [facility] Comment on above: Order Comment: Rhina mason Type: BLOOD SPECIMENOrdering Facility: [facility] Address: [address] [place] [address] Performed By: #### 2 4321-2, , 2776-07 ####[facility]ITALCLIA [id number] [place] [address] [place] ESTIMATED GLOMERULAR FILTRATION RATE 57 mL/min/1.73m??? Low >=60 [facility] Comment on above: Order Comment: Rhina mason Type: BLOOD SPECIMENOrdering Facility: [facility] Address: [address] [place] [address] Result Comment: Isa mated Glomerular Filtration Rate [...] #### 2 4321-2, , 2776-07 ####[facility] LABORATORYIA [id number] [place] [id number] [place] Glucose [Mass/Vol] 84 mg/dL Normal 74-99 [facility] Comment on above: Order Comment: Rhina isabella Type: BLOOD SPECIMENOrdering Facility: [facility] Address: [address] [place] [address] Result Comment: The [place] Diabetes Association (ADA) provides guidance for cutoff [...] Standards of Medical Care in Diabetes 2016, [place] Diabetes Association. Diabetes Care. 2016.39(Suppl 1). Performed By: #### 2 4321-2, , 2776-07 ####[facility]ORATORYCLIA [id number] [place] [address] [place] Potassium [Moles/Vol] 4.3 mmol/L Normal 3.7-5.1 [facility] Comment on above: Order Comment: Specrobson mason Type: BLOOD SPECIMENOrdering Facility: [facility] Address: [address] [place] [address] Performed By: #### 2 4321-2, , 2776-07 ####[facility]ATORYCLIA [id number] [address] [facility] Sodium [Moles/Vol] 137 mmol/L Normal 136-144 [facility] Comment on above: Order Comment: Speci isabella Type: BLOOD SPECIMENOrdering Facility: [facility] Address: [address] [place] [address] Performed By: #### 2 4321-2, , 2776-07 ####[facility]ATORYCLIA [id number] [address] [place] Urea nitrogen [Mass/Vol] 27 mg/dL High 7-21 [facility] Comment on above: Order Comment: Speci men Type: BLOOD SPECIMENOrdering Facility: [facility] Address: [address] [place] [address] Performed By: #### 2 4321-2, , 2776-07 ####[facility]ATORYCLIA [id number] [address] [place] CBC panel Auto (Bld)on 06-17 Erythrocyte distribution width (RBC) [Ratio] 15.5 % High 11.5-15.0 [facility] Comment on above: Order Comment: Speci men Type: BLOOD SPECIMENOrdering Facility: [facility] Address: [address] [place] [address] Performed By: #### 5 8410-2 ####[facility]ORATORYCLIA [id number] [address] [facility] Hematocrit (Bld) [Volume fraction] 26.6 % Low 36.0-46.0 [facility] Comment on above: Order Comment: Speci men Type: BLOOD SPECIMENOrdering Facility: [facility] Address: [address] [place] [address] Performed By: #### 5 8410-2 ####[facility]ATORYCLIA [id number] [address] [facility] Hemoglobin (Bld) [Mass/Vol] 8.5 g/dL Low 11.5-15.5 [facility] Comment on above: Order Comment: Speci men Type: BLOOD SPECIMENOrdering Facility: [facility] Address: [address] [place] [address] Performed By: #### 5 8410-2 ####[facility]ORATORYCLIA [id number] [address] [facility] MCH (RBC) [Entitic mass] 30.0 pg Normal 26.0-34.0 [facility] Comment on above: Order Comment: Speci men Type: BLOOD SPECIMENOrdering Facility: [facility] Address: [address] [place] [address] Performed By: #### 5 8410-2 ####[facility]ORATORYCLIA [id number] [address] [place] MCHC (RBC) [Mass/Vol] 32.0 g/dL Normal 30.5-36.0 [facility] Comment on above: Order Comment: Speci men Type: BLOOD SPECIMENOrdering Facility: [facility] Address: [address] [place] [address] Performed By: #### 5 8410-2 ####[facility]ORATORYCLIA [id number] [address] [place] MCV (RBC) [Entitic vol] 94.0 fL Normal 80.0-100.0 A [facility] Comment on above: Order Comment: Speci men Type: BLOOD SPECIMENOrdering Facility: [facility] Address: [address] [place] [address] Performed By: #### 5 8410-2 ####[facility]ORATORYCLIA [id number] [address] [place] Nucleated RBC (Bld) [#/Vol] 0.02 10*3/uL High <0.01 [facility] Comment on above: Order Comment: Speci men Type: BLOOD SPECIMENOrdering Facility: [facility] Address: [address] [place] [address] Performed By: #### 5 8410-2 ####[facility]ORATORYCLIA [id number] [address] Platelet mean volume (Bld) [Entitic vol] 9.5 fL Normal 9.0-12.7 [facility] Comment on above: Order Comment: Speci men Type: BLOOD SPECIMENOrdering Facility: [facility] Address: [address] [place] [address] Performed By: #### 5 8410-2 ####[facility]ORATORYCLIA [id number] [address] [place] Platelets (Bld) [#/Vol] 223 10*3/uL Normal 150-400 [facility] Comment on above: Order Comment: Speci men Type: BLOOD SPECIMENOrdering Facility: [facility] Address: [address] [place] [address] Performed By: #### 5 8410-2 ####[facility]ATORYCLIA [id number] [address] [place] RBC (Bld) [#/Vol] 2.83 10*6/uL Low 3.90-5.20 [facility] Comment on above: Order Comment: Speci men Type: BLOOD SPECIMENOrdering Facility: [facility] Address: [place] [address] Performed By: #### 5 8410-2 ####[facility] LABORATORYCLIA [id number] [place] [id number] [facility] WBC (Bld) [#/Vol] 8.61 10*3/uL Normal 3.70-11.00 [facility] Comment on above: Order Comment: Speci men Type: BLOOD SPECIMENOrdering Facility: [facility] Address: [address] [place] [id number] Performed By: #### 5 8410-2 ####[facility]ORATORYCLIA [id number] [place] [address] [facility] CONSULTon 06-17-2022 CONSULT HNO ID: [id number] Author: García Monique MD Service: Cardiovascular Medicine Author Type: Physician Type: Consults Filed: 06/17/2022 11:14 AM Note Text: CARDIOVASCULAR INTENSIVE CARE UNIT ([facility]) History AND Physical Note PATIENT NAME: Mel Castillo DATE: June 17, 2022 ADMITTED FOR: Subjective HPI Ms. Mel Castillo is a 81 year old female with PMH: - Paroxysmal Afib - GERD - HTN - Hypothyroidism Patient presented to [facility] on 06/16/2022 for evaluation of left [...] her covid symptoms. 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 Comment: This test has been authorized by FDA under an Emergency Use Authorization (EUA). IMAGING: CT chest: No results found for: (more content not included)... Normal [facility] CONSULT PROGon 06-17-2022 CONSULT PROG HNO ID: [id number] Author: Dominique Lauren RPh Service: Pharmacy Author [...] any questions or concerns. SIGNATURE: Dominique Lauren [facility] DATE/TIME: 06/17/2022 3:47 PM [facility] CONSULT PROG HNO ID: [id number] Author: Emanuel Hull MD Service: General Surgery [...] questions or concerns Tue-Tue 6a-5p please page [phone]. After 5pm and on Weekends and Holidays, please page [phone] if in ICU or [phone] if on RNF. 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 Normal [facility] ECHOon 06-17-2022 Echocardiography Echocardiography Report: Transthoracic Echo [facility] Date of service: 06/17/2022 10:27:19 [facility] Ordering physician: GARCÍA MONIQUE Indication: Nonsustained atrial fibrillation Technologist: Glendy Pena [facility] Interpreting physician: Nando Costa MD PATIENT: Name: [...] * * Final * * * CC [employer] : [id number] Normal [facility] Magnesium SerPl-mCncon 06-17 Magnesium [Mass/Vol] 2.1 mg/dL Normal 1.7-2.3 [facility] Comment on above: Order Comment: Rhina mason Type: BLOOD SPECIMENOrdering Facility: [facility] Address: [address] [place], [place] [address] Performed By: #### 2 4321-2, , 2776-07 ####[facility] LAB[facility]ATORYCLIA [id number] [place] [address] [place] Phosphate SerPl-mCncon 06-17 Phosphate [Mass/Vol] 3.8 mg/dL Normal 2.7-4.8 [facility] Comment on above: Order Comment: Rhina mason Type: BLOOD SPECIMENOrdering Facility: [facility] Address: [address] [place] [id number] Performed By: #### 2 4321-2, , 2776-07 ####[facility]ORATORYCLIA [id number] [address] STATES [facility] XR CHEST 1V FRONTALon 2021 XR [...] in both lungs suspicious for multifocal pneumonia. Cardiovascular Technician: DEVEN Transcribe Date/Time: Jun 17 2022 10:41A Dictated by : DI MINER MD This examination was interpreted and the report reviewed and electronically signed by: DI MINER MD on Jun 17 2022 10:43AM EST [id number] Normal [facility] aPTT PPPon 06-17-2022 aPTT Coag (PPP) [Time] 48.4 s High 23.0-32.4 [facility] Comment on above: Order Comment: Speci men Type: BLOOD SPECIMENOrdering Facility: [facility] Address: [address] [place] [address] Performed By: #### 9 4500-6 #### [facility] CLIA [id number] [address] aPTT Coag (PPP) [Time] 29.4 s Normal 23.0-32.4 [facility] Comment on above: Order Comment: Speci men Type: BLOOD SPECIMENOrdering Facility: [facility] Address: [address] [address] Performed By: #### 3 2355-0 #### [facility] CLIA [id number] [address] aPTT Coag (PPP) [Time] 125.1 s High 23.0-32.4 [facility] Comment on above: Order Comment: Speci men Type: BLOOD SPECIMEN [facility] Address: [address] [place] [address] Performed By: #### T SCR #### [facility] CLIA [id number] [address] aPTT Coag (PPP) [Time] s High 23.0-32.4 [facility] Comment on above: Order Comment: Speci men Type: BLOOD SPECIMENOrdering Facility: [facility] Address: [address] [place] [address] Performed By: #### 3 2355-0 #### [facility] CLIA [id number] [address] aPTT Coag (PPP) [Time] 28.5 s Normal 23.0-32.4 [facility] Comment on above: Order Comment: Speci men Type: BLOOD SPECIMENOrdering Facility: [facility] Address: [address] [place] [address] Performed By: #### 1 4979-9 ####[facility]ATORYCLIA [id number] [address] ANES PRE-OPon 06-16-2022 ANES PRE-OP HNO ID: [id number] Author: Olu Winn MD Service: Anesthesiology Author Type: Physician Type: Anesthesia Preprocedure Evaluation Filed: 06/16/2022 5:41 PM Note Text: ANESTHESIOLOGY DAY OF SURGERY NOTE : 1940 Procedure Information Date/Time: 06/16/221539 Procedure: TRANSCATHETER THERAPY VENOUS INFUSION FOR THROMBOLYSIS W/RADIOLOGICAL SUPERVISION/INTERPRETAT ION INITIAL TREATMENT DAY, venogram (Left: Leg lower ) [place]: [place] Surgeons: Frida Rodriguez MD Estimated body [...] and consent discussed: yes. Patient / Responsible Alliance Party agrees to proceed: yes Patient / [...] June 16, 2022 TIME: 3:44 PM CSN: [id number] [facility] BRIEF OP NOTon 06-16-2022 BRIEF OP NOT HNO ID: [id number] Author: Emanuel Hull MD Service: General Surgery [...] BRIEF OPERATIVE / PROCEDURE NOTE LOG ID: [id number] Surgery/Procedure Date: 06/16/2022 Incision/Procedure Start Time: 5:01 PM Incision Close/Procedure End Time: 6:58 PM Surgeon(s)/Proceduralis t(s) and [employer](s): Surgeon(s) and Role: * Frida Rodriguez MD [...] and on weekends, please page surgery on-call [phone] (RNF) or [phone] (ICU) SIGNATURE: Emnauel Hull MD PATIENT NAME: Mel Castillo DATE: June 16, 2022 TIME: 7:19 PM PAGER/CONTACT #: [phone] Normal [facility] CBC W Auto Differential pane l (Bld)on 06-16-2022 Anisocytosis Ql (Bld) Present Normal [facility] Comment on above: Order Comment: Speci men Type: BLOOD SPECIMENOrdering Facility: [facility] Address: [address] [place] [address] Performed By: #### 5 7021-8 ####[facility]ORATORYCLIA [id number] [place] [address] [place] Basophils (Bld) [#/Vol] 0.00 10*3/uL Normal <0.11 [facility] [facility] Comment on above: Order Comment: Speci men Type: BLOOD SPECIMENOrdering Facility: [facility] Address: [address] [address] Performed By: #### 5 7021-8 ####[facility] LABORATORYCLIA [id number] [place] [address] Basophils/100 WBC (Bld) 0.0 % Normal A [facility] Comment on above: Order Comment: Speci men Type: BLOOD SPECIMENOrdering Facility: [facility] Address: [address] [place] [address] Performed By: #### 5 7021-8 ####[facility] LABORATORYCLIA [id number] [address] Differential cell count method Nom (Bld) Manual Normal [facility] Comment on above: Order Comment: Speci men Type: BLOOD SPECIMENOrdering Facility: [facility] Address: [address] [place] [address] Performed By: #### 5 7021-8 ####[facility] LABORATORYCLIA [id number] [address] Eosinophils (Bld) [#/Vol] 0.00 10*3/uL Normal <0.46 [facility] Comment on above: Order Comment: Speci men Type: BLOOD SPECIMENOrdering Facility: [facility] Address: [address] [place] [address] Performed By: #### 5 7021-8 ####[facility] LABORATORYCLIA [id number] [address] Eosinophils/100 WBC (Bld) 0.0 % Normal [facility] Comment on above: Order Comment: Speci men Type: BLOOD SPECIMENOrdering Facility: [facility] Address: [address] [place] [address] Performed By: #### 5 7021-8 ####[facility] LABORATORYCLIA [id number] [address] [place] Erythrocyte distribution width (RBC) [Ratio] 15.6 % High 11.5-15.0 [facility] Comment on above: Order Comment: Speci men Type: BLOOD SPECIMENOrdering Facility: [facility] Address: [address] [place] [address] Performed By: #### 5 7021-8 ####[facility] [facility]ORATORYCLIA [id number] [address] [place] Hematocrit (Bld) [Volume fraction] 35.3 % Low 36.0-46.0 [facility] Comment on above: Order Comment: Speci men Type: BLOOD SPECIMENOrdering Facility: [facility] Address: [address] [place] [address] Performed By: #### 5 7021-8 ####[facility] LABORATORYCLIA [id number] [place] [address] [place] Hemoglobin (Bld) [Mass/Vol] 11.4 g/dL Low 11.5-15.5 [facility] Comment on above: Order Comment: Speci men Type: BLOOD SPECIMENOrdering Facility: [facility] Address: [address] [place] [address] Performed By: #### 5 7021-8 ####[facility] LABORATORYCLIA [id number] [address] [place] Lymphocytes (Bld) [#/Vol] 1.27 10*3/uL Normal 1.00-4.00 [facility] Comment on above: Order Comment: Speci men Type: BLOOD SPECIMENOrdering Facility: [facility] Address: [address] [place] [address] Performed By: #### 5 7021-8 ####[facility]ATORYCLIA [id number] [address] [place] Lymphocytes/100 WBC (Bld) 8.0 % Normal [facility] Comment on above: Order Comment: Speci men Type: BLOOD SPECIMENOrdering Facility: [facility] Address: [address] [place] [address] Performed By: #### 5 7021-8 ####[facility]ORATORYCLIA [id number] [address] [place] MCH (RBC) [Entitic mass] 30.2 pg Normal 26.0-34.0 [facility] Comment on above: Order Comment: Speci men Type: BLOOD SPECIMENOrdering Facility: [facility] Address: [address] [place] [address] Performed By: #### 5 7021-8 ####[facility]ATORYCLIA [id number] [address] [place] MCHC (RBC) [Mass/Vol] 32.3 g/dL Normal 30.5-36.0 [facility] Comment on above: Order Comment: Speci men Type: BLOOD SPECIMENOrdering Facility: [facility] Address: [address] [place] [address] Performed By: #### 5 7021-8 ####[facility]ATORYCLIA [id number] [address] [place] MCV (RBC) [Entitic vol] 93.6 fL Normal 80.0-100.0 [facility] Comment on above: Order Comment: Speci men Type: BLOOD SPECIMENOrdering Facility: [facility] Address: [address] [place] [address] Performed By: #### 5 7021-8 ####[facility]ATORYCLIA [id number] [address] [place] Monocytes (Bld) [#/Vol] 1.74 10*3/uL High <0.87 [facility] Comment on above: Order Comment: Speci men Type: BLOOD SPECIMENOrdering Facility: [facility] Address: [address] [place] [address] Performed By: #### 5 7021-8 ####[facility]ATORYCLIA [id number] [address] Monocytes/100 WBC (Bld) 11.0 % Normal A [facility] Comment on above: Order Comment: Speci men Type: BLOOD SPECIMENOrdering Facility: [facility] Address: [address] [place] [address] Performed By: #### 5 7021-8 ####[facility]ATORYCLIA [id number] [address] [place] MYELO% 4.0 % Normal [facility] Comment on above: Order Comment: Speci men Type: BLOOD SPECIMENOrdering Facility: [facility] Address: [address] [address] Performed By: #### 5 7021-8 ####[facility]ATORYCLIA [id number] [address] [place] Neutrophils (Bld) [#/Vol] 12.02 10*3/uL High 1.45-7.50 [facility] Comment on above: Order Comment: Speci men Type: BLOOD SPECIMENOrdering Facility: [facility] Address: [address] [address] Performed By: #### 5 7021-8 ####[facility]ATORYCLIA [id number] [address] Neutrophils/100 WBC (Bld) 76.0 % Normal [facility] Comment on above: Order Comment: Speci men Type: BLOOD SPECIMENOrdering Facility: [facility] Address: [address] [place] [address] Performed By: #### 5 7021-8 ####[facility]ATORYCLIA [id number] [address] [place] Nucleated RBC (Bld) [#/Vol] 10*3/uL Normal <0.01 [facility] Comment on above: Order Comment: Speci men Type: BLOOD SPECIMENOrdering Facility: [facility] Address: [address] [place] [address] Performed By: #### 5 7021-8 ####[facility]ATORYCLIA [id number] [address] STATES [facility] Nucleated RBC/100 WBC (Bld) [Ratio] 0.0 /100 WBC Normal [facility] Comment on above: Order Comment: Speci men Type: BLOOD SPECIMENOrdering Facility: [facility] Address: [address] [place] [address] Performed By: #### 5 7021-8 ####[facility]ATORYCLIA [id number] [place] [address] [place] Platelet mean volume (Bld) [Entitic vol] 9.7 fL Normal 9.0-12.7 [facility] Comment on above: Order Comment: Speci men Type: BLOOD SPECIMENOrdering Facility: [facility] Address: [address] [address] Performed By: #### 5 7021-8 ####[facility]ATORYCLIA [id number] [address] [place] Platelets (Bld) [#/Vol] 373 10*3/uL Normal 150-400 [facility] Comment on above: Order Comment: Speci men Type: BLOOD SPECIMENOrdering Facility: [facility] Address: [address] [place] [address] Performed By: #### 5 7021-8 ####[facility]ATORYCLIA [id number] [address] [place] Platelets Estimate (Bld) [#/Vol] Adequate Normal [facility] Comment on above: Order Comment: Speci men Type: BLOOD SPECIMENOrdering Facility: [facility] Address: [address] [place] [address] Performed By: #### 5 7021-8 ####[facility]ATORYCLIA [id number] [address] PROMYL% 1.0 % Normal [facility] Comment on above: Order Comment: Speci men Type: BLOOD SPECIMENOrdering Facility: [facility] Address: [address] [address] Performed By: #### 5 7021-8 ####[facility]ATORYCLIA [id number] [place] [address] [place] RBC (Bld) [#/Vol] 3.77 10*6/uL Low 3.90-5.20 [facility] Comment on above: Order Comment: Speci men Type: BLOOD SPECIMENOrdering Facility: [facility] Address: [address] [address] Performed By: #### 5 7021-8 ####[facility] [facility]ORATORYCLIA [id number] [address] RED CELL MORPH Normal Normal [facility] Comment on above: Order Comment: Speci men Type: BLOOD SPECIMENOrdering Facility: [facility] Address: [address] [place] [address] Performed By: #### 5 7021-8 ####[facility]ATORYCLIA [id number] [address] SPHEROCYTES Few Normal [facility] Comment on above: Order Comment: Speci men Type: BLOOD SPECIMENOrdering Facility: [facility] Address: [address] [place] [address] Performed By: #### 5 7021-8 ####[facility]ATORYCLIA [id number] [address] WBC (Bld) [#/Vol] 15.82 10*3/uL High 3.70-11.00 [facility] Comment on above: Order Comment: Speci men Type: BLOOD SPECIMENOrdering Facility: [facility] Address: [address] [place] [address] Result Comment: Resu lts checked and verified. Performed By: #### 5 7021-8 ####[facility]ATORYCLIA [id number] [address] CBC panel Auto (Bld)on 06-16 Erythrocyte distribution width (RBC) [Ratio] 15.5 % High 11.5-15.0 [facility] Comment on above: Order Comment: Speci men Type: BLOOD SPECIMENOrdering Facility: [facility] Address: [address] [place] [address] Performed By: #### 5 8410-2 ####[facility]ATORYCLIA [id number] [address] Hematocrit (Bld) [Volume fraction] 30.1 % Low 36.0-46.0 [facility] Comment on above: Order Comment: Speci men Type: BLOOD SPECIMENOrdering Facility: [facility] Address: [address] [address] Performed By: #### 5 8410-2 ####[facility]ORATORYCLIA [id number] [address] [facility] Hemoglobin (Bld) [Mass/Vol] 9.8 g/dL Low 11.5-15.5 [facility] Comment on above: Order Comment: Speci men Type: BLOOD SPECIMENOrdering Facility: [facility] Address: [address] [address] Performed By: #### 5 8410-2 ####[facility]ATORYCLIA [id number] [address] MCH (RBC) [Entitic mass] 30.8 pg Normal 26.0-34.0 [facility] Comment on above: Order Comment: Speci men Type: BLOOD SPECIMENOrdering Facility: [facility] Address: [address] [address] Performed By: #### 5 8410-2 ####[facility]ATORYCLIA [id number] [address] MCHC (RBC) [Mass/Vol] 32.6 g/dL Normal 30.5-36.0 [facility] Comment on above: Order Comment: Speci men Type: BLOOD SPECIMENOrdering Facility: [facility] Address: [address] [place] [address] Performed By: #### 5 8410-2 ####[facility]ATORYCLIA [id number] [address] MCV (RBC) [Entitic vol] 94.7 fL Normal 80.0-100.0 [facility] Comment on above: Order Comment: Speci men Type: BLOOD SPECIMENOrdering Facility: [facility] Address: [address] [address] Performed By: #### 5 8410-2 ####[facility]ATORYCLIA [id number] [address] Nucleated RBC (Bld) [#/Vol] 0.08 10*3/uL High <0.01 [facility] Comment on above: Order Comment: Speci men Type: BLOOD SPECIMENOrdering Facility: [facility] Address: [address] [place] [address] Performed By: #### 5 8410-2 ####[facility]ATORYCLIA [id number] [place] [address] [place] Platelet mean volume (Bld) [Entitic vol] 9.6 fL Normal 9.0-12.7 [facility] Comment on above: Order Comment: Speci men Type: BLOOD SPECIMENOrdering Facility: [facility] Address: [address] [place] [address] Performed By: #### 5 8410-2 ####[facility]ATORYCLIA [id number] [address] [place] Platelets (Bld) [#/Vol] 277 10*3/uL Normal 150-400 [facility] Comment on above: Order Comment: Speci men Type: BLOOD SPECIMENOrdering Facility: [facility] Address: [address] [place] [address] Performed By: #### 5 8410-2 ####[facility]ATORYCLIA [id number] [address] [place] RBC (Bld) [#/Vol] 3.18 10*6/uL Low 3.90-5.20 [facility] Comment on above: Order Comment: Speci men Type: BLOOD SPECIMENOrdering Facility: [facility] Address: [address] [place] [address] Performed By: #### 5 8410-2 ####[facility]ATORYCLIA [id number] [address] [place] WBC (Bld) [#/Vol] 10.43 10*3/uL Normal 3.70-11.00 [facility] Comment on above: Order Comment: Speci men Type: BLOOD SPECIMENOrdering Facility: [facility] Address: [address] [place] [address] Performed By: #### 5 8410-2 ####[facility] [id number] [address] [facility] CONSULTon 06-16-2022 CONSULT HNO ID: [id number] Author: Iman Saldana DO Service: General Surgery [...] Function, Amylase, AND Lipase Recent Labs 06/16/22 034 TPROT 6.6 ALB 3.2* ALT 20 AST [...] or co (more content not included)... Normal [facility] CTA ABD/PEL/LOWER EXT W IVCO Non 06-16-2022 CTA ABD/PEL/LOWER EXT W IVCON * * *Final Report* * * DATE OF EXAM: Jun 16 2022 7:33AM [facility] 0122 - CTA ABD/PEL/LOWER EXT W [...] lobe consolidation may represent pneumonia or atelectasis. Cardiovascular Technician: PSCB Transcribe Date/Time: Jun 16 2022 7:54A Dictated by : ESTHER MCKEON MD This examination was interpreted and the report reviewed and electronically signed by: ESTHER MCKEON MD on Jun 16 2022 8:22AM EST [id number] Normal [facility] Comprehensive metabolic 2000 panelon 06-16-2022 Albumin [Mass/Vol] 3.2 g/dL Low 3.9-4.9 [facility] Comment on above: Order Comment: Speci men Type: BLOOD SPECIMENOrdering Facility: [facility] Address: [address] [place] [address] Performed By: #### 3 3959-8, 71374-2, 99607-8, 49283-4 ####[facility] LABORATORYCLIA [id number] [place] [address] [place] [facility] ALP [Catalytic activity/Vol] 111 U/L Normal 34-123 [facility] Comment on above: Order Comment: Speci men Type: BLOOD SPECIMENOrdering Facility: [facility] Address: [address] [place] [address] Performed By: #### 3 3959-8, 81911-3, 92833-9, 70132-2 ####[facility]ORATORYCLIA [id number] [address] STATES [facility] ALT With P-5'-P [Catalytic activity/Vol] 20 U/L Normal 7-38 [facility] Comment on above: Order Comment: Speci men Type: BLOOD SPECIMENOrdering Facility: [facility] Address: [address] [place] [address] Performed By: #### 3 3959-8, 38764-1, 71785-2, 94467-6 ####[facility]ORATORYCLIA [id number] [address] STATES [facility] Anion gap [Moles/Vol] 17 mmol/L Normal 9-18 [facility] Comment on above: Order Comment: Speci men Type: BLOOD SPECIMENOrdering Facility: [facility] Address: [address] [place] [address] Performed By: #### 3 3959-8, 37805-0, 82609-1, 85311-5 ####[facility]ORATORYCLIA [id number] [place] [address] [place] [facility] AST With P-5'-P [Catalytic activity/Vol] 13 U/L Normal 13-35 [facility] Comment on above: Order Comment: Speci men Type: BLOOD SPECIMENOrdering Facility: [facility] Address: [address] [place] [address] Performed By: #### 3 3959-8, 82760-6, 77589-1, 62390-6 ####[facility]ORATORYCLIA [id number] [place] [address] [place] Bilirubin [Mass/Vol] 0.3 mg/dL Normal 0.2-1.3 [facility] Comment on above: Order Comment: Speci men Type: BLOOD SPECIMENOrdering Facility: [facility] Address: [address] [place] [address] Performed By: #### 3 3959-8, 34185-2, 12161-8, 03696-0 ####[facility]ATORYCLIA [id number] [place] [address] [place] Calcium [Mass/Vol] 9.1 mg/dL Normal 8.5-10.2 [facility] Comment on above: Order Comment: Speci men Type: BLOOD SPECIMENOrdering Facility: [facility] Address: [address] [place] [address] Performed By: #### 3 3959-8, 47109-5, 96606-1, 57625-4 ####[facility]ATORYCLIA [id number] [place] [address] [place] Chloride [Moles/Vol] 104 mmol/L Normal 97-105 [facility] Comment on above: Order Comment: Speci men Type: BLOOD SPECIMENOrdering Facility: [facility] Address: [address] [place] [address] Performed By: #### 3 3959-8, 56825-1, 91864-5, 13233-0 ####[facility]ATORYCLIA [id number] [place] [address] [place] CO2 [Moles/Vol] 18 mmol/L Low 22-30 [facility] Comment on above: Order Comment: Speci men Type: BLOOD SPECIMENOrdering Facility: [facility] Address: [address] [address] Performed By: #### 3 3959-8, 59050-6, 80343-8, 67901-2 ####[facility]ITALCL[facility] [id number] [place] [address] [place] Creatinine [Mass/Vol] 1.14 mg/dL High 0.58-0.96 [facility] Comment on above: Order Comment: Speci men Type: BLOOD SPECIMENOrdering Facility: [facility] Address: [address] [address] Performed By: #### 3 3959-8, 16002-6, 49082-7, 99043-8 ####[facility] COUNTYIA [id number] [place] [address] [place] ESTIMATED GLOMERULAR FILTRATION RATE 48 mL/min/1.73m??? Low >=60 [facility] Comment on above: Order Comment: Speci men Type: BLOOD SPECIMENOrdering Facility: [facility] Address: [address] [place] [address] Result Comment: Isa mated Glomerular Filtration Rate [...] actual GFR. Performed By: #### 3 3959-8, 29092-9, 93584-1, 71734-3 ####[facility] LABORATORYIA [id number] [place] [address] [place] Glucose [Mass/Vol] 122 mg/dL High 74-99 [facility] Comment on above: Order Comment: Speci men Type: BLOOD SPECIMENOrdering Facility: [facility] Address: [address] [address] Result Comment: The [place] [employer] Association (ADA) provides guidance for cutoff [...] Standards of Medical Care in Diabetes 2016, [place] [employer]. Diabetes Care. 2016.39(Suppl 1). Performed By: #### 3 3959-8, 05108-2, 40241-5, 12782-7 ####[facility]ORATORYCLIA [id number] [place] [address] [place] Potassium [Moles/Vol] 4.4 mmol/L Normal 3.7-5.1 [facility] Comment on above: Order Comment: Speci men Type: BLOOD SPECIMENOrdering Facility: [facility] Address: [address] [address] Performed By: #### 3 3959-8, 07878-2, 98228-0, 33210-0 ####[facility]ORATORYCLIA [id number] [place] [address] [place] Protein [Mass/Vol] 6.6 g/dL Normal 6.3-8.0 [facility] Comment on above: Order Comment: Speci men Type: BLOOD SPECIMENOrdering Facility: [facility] Address: [address] [address] Performed By: #### 3 3959-8, 18095-1, 19755-2, 79123-7 ####[facility]ORATORYCLIA [id number] [place] [address] [place] Sodium [Moles/Vol] 139 mmol/L Normal 136-144 [facility] Comment on above: Order Comment: Speci men Type: BLOOD SPECIMENOrdering Facility: [facility] Address: [address] [address] Performed By: #### 3 3959-8, 46979-0, 53399-4, 65694-3 ####[facility]ORATORYCLIA [id number] [place] [address] [facility] Urea nitrogen [Mass/Vol] 35 mg/dL High 7-21 [facility] Comment on above: Order Comment: Speci men Type: BLOOD SPECIMENOrdering Facility: [facility] Address: [address] [place] [address] Performed By: #### 3 3959-8, 56421-0, 60091-0, 05405-8 ####[facility] LABORATORYCLIA [id number] [place] [address] [facility] ED NOTEon 06-16-2022 ED NOTE HNO ID: [id number] Author: Adela Cortez RN Service: Emergency Medicine Author Type: Registered Nurse Type: ED Notes Filed: 06/16/2022 11:27 AM Note Text: Pts aptt is >139. Nongram states to hold dose and let MD know. Vascular resident made aware, ordered to hold dose x1 hour and then redraw aptt. Normal [facility] ED NOTE HNO ID: [id number] Author: Nancy Scott RN Service: Emergency Medicine Author Type: Registered Nurse Type: ED Notes Filed: 06/16/2022 7:13 AM Note Text: CT notified that pt has been moved to new room and is ready for testing [facility] ED NOTE HNO ID: [id number] Author: Marleen Blank RN Service: ? Author Type: Registered Nurse Type: ED Notes Filed: 06/16/2022 6:59 AM Note Text: Bed: 19-ED Expected date: Expected time: Means of arrival: Comments: Normal [facility] ED NOTE HNO ID: [id number] Author: Nancy Scott RN Service: Emergency Medicine Author Type: Registered Nurse Type: ED Notes Filed: 06/16/2022 6:44 AM Note Text: CT delayed due to pt needing to move rooms because of bed bugs. Normal [facility] ED NOTE HNO ID: [id number] Author: Nancy Scott RN Service: Emergency Medicine Author Type: Registered Nurse Type: ED Notes Filed: 06/16/2022 3:09 AM Note Text: CT form faxed, ptt sent [facility] ED NOTE HNO ID: [id number] Author: Nancy Scott RN Service: Emergency Medicine Author Type: Registered Nurse Type: ED Notes Filed: 06/16/2022 3:02 AM Note Text: US notified [facility] ED NOTE HNO ID: [id number] Author: Nancy Scott RN Service: Emergency Medicine Author Type: Registered Nurse Type: ED Notes Filed: 06/16/2022 2:48 AM Note Text: CT notified [facility] ED NOTE HNO ID: [id number] Author: Nancy Scott RN Service: Emergency Medicine Author Type: Registered Nurse Type: ED Notes Filed: 06/16/2022 2:43 AM Note Text: Labs sent [facility] ED NOTE HNO ID: [id number] Author: Davian Chen RN Service: ? Author Type: Registered Nurse Type: ED Notes Filed: 06/16/2022 2:06 AM Note Text: Bed: 15-ED Expected date: Expected time: Means of arrival: Comments: squad [facility] ED PROV NOTEon 06-16-2022 ED PROV NOTE HNO ID: [id number] Author: Vanessa Trevizo DO Service: Emergency Medicine [...] Abnormal; Notable (more content not included)... Normal [facility] ED PROV NOTE HNO ID: [id number] Author: Vanessa Trevizo DO Service: Emergency Medicine [...] and diagnosis. Vanessa TrevizoDO 06/16/22 0323 Normal [facility] EKGon 06-16-2022 Electrocardiogram Ventricular Rate : 1 13 BPM Atrial Rate : 122 BPM QRS Duration : 100 ms Q-T Interval : 282 ms QTC Calculation(Bazett) : 386 ms Calculated R [place] : 46 degrees Calculated T [place] : -40 degrees ATRIAL FIBRILLATION WITH RAPID VENTRICULAR RESPONSE ABNORMAL QRS-T ANGLE, CONSIDER PRIMARY T WAVE ABNORMALITY ABNORMAL ECG NO PREVIOUS ECGS AVAILABLE Confirmed by MD LEONE CAROL ([id number]) on 06/16/2022 6:43:12 PM NAME : MEL GUADARRAMA PID : [id number] : 1940 Gender : Female Race : ORD : Procedure Date : Jun 16 2022 07:37:07 Edit Date : Jun 16 2022 18:43:17 Diagnosis: ATRIAL FIBRILLATION WITH RAPID VENTRICULAR RESPONSE ABNORMAL QRS-T ANGLE, CONSIDER PRIMARY T WAVE ABNORMALITY ABNORMAL ECG NO PREVIOUS ECGS AVAILABLE Confirmed by MD LEONE CAROL ([id number]) on 06/16/2022 6:43:12 PM Test Reason : Location : 4 : [facility] 19 Overread By : MD LEONE CAROL Edited By : MD LEONE CAROL Referred By : , Acquired by : PATRICIA MOE [facility] HIGH SENSITIVITY TROPONIN T (INITIAL)on 06-16-2022 HIGH SENSITIVITY CHRISTOPHER 34 ng/L High <12 [facility] Comment on above: Order Comment: Rhina mason Type: BLOOD SPECIMENOrdering Facility: [facility] Address: [address] [place] [address] Result Comment: When assessing risk for acute [...] MACE. Performed By: #### 3 2355-0 #### [email or web address] [facility] CLIA [id number] [address] [place] HIGH SENSITIVITY TROPONIN T (SECOND)on 06-16-2022 HIGH SENSITIVITY CHRISTOPHER 28 ng/L High <12 [facility] Comment on above: Order Comment: Rhina mason Type: BLOOD SPECIMENOrdering Facility: [facility] Address: [address] [place] [address] Result Comment: When assessing risk for acute [...] 30 day MACE. Performed By: #### L [id number] ####[facility]ORYCLIA [id number] [address] [place] HIGH SENSITIVITY TROPONIN T (THIRD) 3 HRS AFTER INITIALon 06-16-2022 HIGH SENSITIVITY CHRISTOPHER 23 ng/L High <12 [facility] Comment on above: Order Comment: Rhina mason Type: BLOOD SPECIMENOrdering Facility: [facility] Address: [address] [place] [address] Result Comment: When assessing risk for acute [...] 30 day MACE. Performed By: #### L [id number] ####[facility]ORATORYCLIA [id number] [place] [address] [place] HISTORY PHYSICALon HISTORY PHYSICAL HNO ID: [id number] Author: Kristen Jones APRN.CNP Service: Hospital Medicine Author Type: Nurse Practitioner Type: HANDP Filed: 06/16/2022 1:27 PM Note Text: DEPARTMENT OF HOSPITAL MEDICINE HISTORY AND PHYSICAL EXAM SERVICE DATE: 06/16/2022 SERVICE TIME: 12:02 PM Primary Care Physician: Dr. Evans Admitting Provider: Kristen Jones APRN.CNP NIGHT AND WEEKEND COVERAGE: After 7pm, please call cross cover pager #[phone] Subjective CHIEF COMPLAINT: Left leg pain, discoloration [...] this patient has 2 charts. Mel Garcia [id number] and Mel Castillo [id number]. PAST MEDICAL HISTORY Diagnosis Date Acute bacterial [...] chest pain Gastrointestinal: + diarrhea x 1 [employer]THLET[employer] INSTRU[employer] Genitourinary: Denies dysuria Musculoskeletal: + left leg [...] or rh (more content not included)... Normal [facility] Magnesium [facility] 06-16 Magnesium [Mass/Vol] 2.4 mg/dL High 1.7-2.3 [facility] Comment on above: Order Comment: Speci men Type: BLOOD SPECIMENOrdering Facility: [facility] Address: [address] [place] [address] Performed By: #### 3 3959-8, 22917-5, 01839-0, 29559-3 ####[facility]ORATORYCLIA [id number] [address] [facility] NT-proBNP [facility] 06-16 Natriuretic peptide.B prohormone N-Terminal [Mass/Vol] 4156 pg/mL High <450 [facility] Comment on above: Order Comment: Speci men Type: BLOOD SPECIMEN [facility] Address: [address] [place] [address] Performed By: #### T SCR #### [facility] CLIA [id number] [address] [place] NURSING PROGon 06-16-2022 NURSING PROG HNO ID: [id number] Author: Kayden José RN Service: Trauma Author [...] TO THE RECEIVING NURSE. NIKKY FRAGA. Normal [facility] PT panel Coag (PPP)on 2021 INR Coag (PPP) [Relative time] 1.1 {INR} Normal 0.9-1.3 [facility] Comment on above: Order Comment: Rhina mason Type: BLOOD SPECIMENOrdering Facility: [facility] Address: [address] [place], [place] [id number] Result Comment: Mayra min K Antagonist (VKA) Therapeutic Range: INR 2 to 3 (Target INR of 2.5) Note: For patients treated with VKA drugs, such as warfarin, the [employer] [employer] 2012 Guideline recommends [...] 2012, 141:7S-47S Daren RA, et al. [facility] 2017, 70: 252-289 Performed By: #### 3 4528-0, 52234-3 ####[facility] LABORATORYCLIA [id number] [place] [address] [place] PT Coag (PPP) [Time] 11.3 s Normal 9.7-13.0 [facility] Comment on above: Order Comment: Rhina mason Type: BLOOD SPECIMENOrdering Facility: [facility] Address: [address] [place] [id number] Performed By: #### 3 4528-0, 66238-7 ####[facility] LABORATORYCLIA [id number] [address] [place] Procalcitonin SerPl-mCncon 1 08-16-2021 Procalcitonin [Mass/Vol] 0.19 ng/mL High <0.09 [facility] Comment on above: Order Comment: Speci men Type: BLOOD SPECIMEN [facility] Address: [address] [place], [place] [address] Result Comment: For a guided interpretation of test results, please visit the Change in Procalcitonin Calculator, [email or web address]. Performed By: #### T SCR #### [facility] CLIA [id number] [address] [place] SARS-CoV-2 RNA Resp Ql OXANA+p robeon 06-16-2022 SARS-CoV-2 (COVID-19) RNA OXANA+probe Ql (Resp) COVID 19 RESULT: SARS-CoV-2 (Agent of COVID-19) Detected by RT-PCR or equivalent method. This test has been authorized by FDA under an Emergency Use Authorization (EUA). Normal [facility] Comment on above: Performed By: #### 9 4500-6 #### [facility] CLIA [id number] [address] [place] [address] [facility] US DVT LOWER LTon 06-16-2022 US [...] Torres MD on 0516 via verbal communication. [facility] Transcribe Date/Time: Jun 16 2022 5:07A Dictated by : SKIP NOEL MD This examination was interpreted and the report reviewed and electronically signed by: KSIP NOEL MD on Jun 16 2022 5:17AM EST [id number] Normal [facility] aPTT PPPon 06-16-2022 aPTT Coag (PPP) [Time] 74.2 s High 23.0-32.4 [facility] Comment on above: Order Comment: Rhina mason Type: BLOOD SPECIMENOrdering Facility: [facility] Address: [address] [address] Performed By: #### 1 4979-9 ####[facility]ORATORYCLIA [id number] [address] [facility] aPTT Coag (PPP) [Time] 134.7 s High 23.0-32.4 [facility] Comment on above: Order Comment: Rhina mason Type: BLOOD SPECIMENOrdering Facility: [facility] Address: [address] [place] [address] Performed By: #### 1 4979-9 ####[facility] [id number] [address] aPTT Coag (PPP) [Time] s High 23.0-32.4 [facility] Comment on above: Order Comment: Speci isabella Type: BLOOD SPECIMENOrdering Facility: [facility] Address: [address] [place] [address] Performed By: #### 1 4979-9 ####[facility]ITALCLIA [id number] [address] aPTT Coag (PPP) [Time] 21.7 s Low 23.0-32.4 [facility] Comment on above: Order Comment: Rhina isabella Type: BLOOD SPECIMENOrdering Facility: [facility] Address: [address] [place] [address] Performed By: #### 3 4528-0, 81021-2 ####[facility]ITALCLIA [id number] [address] CULTURE AND STAIN - TISSUEon 03-10-2020 [...] 0.12 S Rifampin(AGATA) <= 0.5 S Normal [facility] Comment on above: Performed By: #### C XTIS #### [address] [place] [address] [address] [place], [place] [id number] #### C/DAMIÁN #### [facility] [address] [place] [address] CR Finger(s) Min 2 Views Rig hton 03-07-2020 CR Finger(s) Min 2 Views Right Patient Name: MEL POP Diagnostic Radiology Exam Date/Time 03/06/2020 10:30:00 EDT Exam CR Finger(s) Min 2 Views Right Ordering Physician MD GUSTAVO, JAYLA Stoll Accession Number [id number] CPT4 Codes 28533 () Reason For Exam pain Report Right [...] was communicated to JAYLA MCMAHAN via the [email or web address] Critical Result system on 03/07/2020 8:07 PM EDT, Message ID [id number]. Report Dictated on Final Dictating Physician: MD PERRY DIANE Signed Date and Time: 03/07/2020 8:07 pm Signed by: MD PERRY DIANE Transcribed Date and Time: 03/07/2020 8:08 Normal [facility] CULTURE ANAEROBEon 0 CULTURE ANAEROBE CULTURE ANAEROBE --> Status: F No growth of anaerobes at 5 days. STAIN GRAM --> Status: F Few polymorphonuclear cells/lpf. No organisms seen. No organisms seen. Normal [facility] Comment on above: Performed By: #### C XTIS #### [address] [place] [address] [facility] [address] [place], [place] [id number] #### C/DAMIÁN #### [address] [place] [address] Vital Signs Date Time Vital Sign Value Performing Clinician Facility 03-15-2025 11:06-0400 Body height 160 cm Andre Berry MD Work Phone: [facility] 03-15-2025 11:06-0400 Body mass index (BMI) [Ratio] 27.1 kg/m2 Andre Berry MD Work Phone: [facility] 03-15-2025 11:06-0400 Body temperature 97.39 [degF] Andre Berry MD Work Phone: [facility] 03-15-2025 11:06-0400 Body weight 69.4 kg Andre Berry MD Work Phone: [facility] Comment on above: unable to stand for ht and wt today 03-15-2025 11:06-0400 Diastolic blood pressure 48 mm[Hg] Andre Berry MD Work Phone: [facility] 03-15-2025 11:06-0400 Heart rate 45 /min Andre Berry MD Work Phone: [facility] 03-15-2025 11:06-0400 SaO2% (BldA) [Mass fraction] 100 % Andre Berry MD Work Phone: [facility] 03-15-2025 11:06-0400 Systolic blood pressure 97 mm[Hg] Andre Berry MD Work Phone: [facility] 12-24-2024 14:45-0400 Body mass index (BMI) [Ratio] 27.1 kg/m2 Kristyn Blankenship MD Work Phone: [facility] 12-24-2024 14:45-0400 Body weight 69.4 kg Kristyn Blankenship MD Work Phone: [facility] 12-05-2024 10:20-0400 Body height 160 cm Kristyn Blankenship MD Work Phone: [facility] 12-05-2024 10:20-0400 Body mass index (BMI) [Ratio] 29.23 kg/m2 Kristyn Blankenship MD Work Phone: [facility] 12-05-2024 10:20-0400 Body weight 74.84 kg Kristyn Blankenship MD Work Phone: [facility] 12-05-2024 10:20-0400 Diastolic blood pressure 78 mm[Hg] Kristyn Blankenship MD Work Phone: [facility] 12-05-2024 10:20-0400 Heart rate 78 /min Kristyn Blankenship MD Work Phone: [facility] 12-05-2024 10:20-0400 Respiratory rate 18 /min Kristyn Blankenship MD Work Phone: [facility] 12-05-2024 10:20-0400 SaO2% (BldA) [Mass fraction] 94 % Kristyn Blankenship MD Work Phone: [facility] 12-05-2024 10:20-0400 Systolic blood pressure 102 mm[Hg] Kristyn Blankenship MD Work Phone: [facility] 11-22-2024 13:45-0400 Diastolic blood pressure 54 mm[Hg] Kristyn Blankenship MD Work Phone: [facility] 11-22-2024 13:45-0400 Heart rate 58 /min Kristyn Blankenship MD Work Phone: [facility] 11-22-2024 13:45-0400 Respiratory rate 18 /min Kristyn Blankenship MD Work Phone: [facility] 11-22-2024 13:45-0400 SaO2% (BldA) [Mass fraction] 95 % Kristyn Blankenship MD Work Phone: [facility] 11-22-2024 13:45-0400 Systolic blood pressure 139 mm[Hg] Kristyn Blankenship MD Work Phone: [facility] 11-22-2024 13:15-0400 Body temperature 97.11 [degF] Kristyn Blankenship MD Work Phone: [facility] 11-22-2024 08:25-0400 Body height 160 cm Kristyn Blankenship MD Work Phone: [facility] 11-22-2024 08:25-0400 Body mass index (BMI) [Ratio] 29.23 kg/m2 Kristyn Blankenship MD Work Phone: [facility] 11-22-2024 08:25-0400 Body weight 74.84 kg Kristyn Blankenship MD Work Phone: [facility] 11-05-2024 15:42-0400 Body height 160 cm Kristyn Blankenship MD Work Phone: [facility] 11-05-2024 15:42-0400 Body mass index (BMI) [Ratio] 29.23 kg/m2 Kristyn Blankenship MD Work Phone: [facility] 11-05-2024 15:42-0400 Body weight 74.84 kg Kristyn Blankenship MD Work Phone: [facility] 11-05-2024 15:42-0400 Diastolic blood pressure 64 mm[Hg] Kristyn Blankenship MD Work Phone: [facility] 11-05-2024 15:42-0400 Heart rate 65 /min Kristyn Blankenship MD Work Phone: [facility] 11-05-2024 15:42-0400 Respiratory rate 18 /min Kristyn Blankenship MD Work Phone: [facility] 11-05-2024 15:42-0400 SaO2% (BldA) [Mass fraction] 98 % Kristyn Blankenship MD Work Phone: [facility] 11-05-2024 15:42-0400 Systolic blood pressure 122 mm[Hg] Kristyn Blankenship MD Work Phone: [facility] 08-22-2024 10:32-0500 Body height 160 cm Henok Darlyn PA-C Work Phone: [facility] [employer] 08-22-2024 10:32-0500 Body mass index (BMI) [Ratio] 29.23 kg/m2 Henok Darlyn PA-C Work Phone: [employer] 08-22-2024 10:32-0500 Body weight 74.84 kg Henok Darlyn PA-C Work Phone: [employer] 08-22-2024 10:32-0500 Diastolic blood pressure 62 mm[Hg] Henok Darlyn PA-C Work Phone: [employer] 08-22-2024 10:32-0500 Respiratory rate 18 /min Henok Darlyn PA-C Work Phone: [employer] 08-22-2024 10:32-0500 Systolic blood pressure 104 mm[Hg] Henok Darlyn PA-C Work Phone: [facility] [employer] 08-16-2024 07:19-0500 Body temperature 97.59 [degF] Mariana King DO Work Phone: [employer] 08-16-2024 07:19-0500 Diastolic blood pressure 66 mm[Hg] Mariana King DO Work Phone: [employer] 08-16-2024 07:19-0500 Heart rate 85 /min Mariana King DO Work Phone: [employer] 08-16-2024 07:19-0500 Respiratory rate 18 /min Mariana King DO Work Phone: [employer] 08-16-2024 07:19-0500 SaO2% (BldA) [Mass fraction] 94 % Mariana King DO Work Phone: [employer] 08-16-2024 07:19-0500 Systolic blood pressure 135 mm[Hg] Mariana King DO Work Phone: [employer] 08-03-2024 08:32-0500 Body height 162 cm Mariana Kign DO Work Phone: [employer] 08-03-2024 08:32-0500 Body mass index (BMI) [Ratio] 28.58 kg/m2 Mariana King DO Work Phone: [employer] 08-03-2024 08:32-0500 Body weight 75 kg Mariana King DO Work Phone: [employer] [employer] 07-07-2024 06:03-0500 Body temperature 97.7 [degF] Wm Juliola DO Work Phone: [employer] 07-07-2024 06:03-0500 Diastolic blood pressure 67 mm[Hg] Wm Alexandrekola DO Work Phone: [employer] 07-07-2024 06:03-0500 Heart rate 69 /min Wm Alexandrekola DO Work Phone: [employer] 07-07-2024 06:03-0500 Respiratory rate 12 /min Wm Alexandrekola DO Work Phone: [employer] 07-07-2024 06:03-0500 SaO2% (BldA) [Mass fraction] 94 % Wm Aracelirakola DO Work Phone: [employer] 07-07-2024 06:03-0500 Systolic blood pressure 149 mm[Hg] Wm Aracelirakola DO Work Phone: [employer] 07-05-2024 10:00-0500 Body height 162.6 cm Wm Juliola DO Work Phone: [facility] [employer] 07-05-2024 10:00-0500 Body mass index (BMI) [Ratio] 27.46 kg/m2 Wm Alexandrekola DO Work Phone: [employer] 07-05-2024 10:00-0500 Body weight 72.58 kg Wm Nunes DO Work Phone: [facility] 05-14-2024 15:34-0400 Body height 162.6 cm Jared Evans MD Work Phone: [facility] 05-14-2024 15:34-0400 Body mass index (BMI) [Ratio] 25.23 kg/m2 Jared Evans MD Work Phone: [facility] 05-14-2024 15:34-0400 Body weight 66.68 kg Jared Evans MD Work Phone: [facility] 04-25-2024 13:39-0400 Body height 162.6 cm Henok Hernandez PA-C Work Phone: [facility] 04-25-2024 13:39-0400 Body mass index (BMI) [Ratio] 25.23 kg/m2 Henok Hernandez PA-C Work Phone: [facility] 04-25-2024 13:39-0400 Body weight 66.68 kg Henok Harrington PA-C Work Phone: [facility] 04-25-2024 13:39-0400 Diastolic blood pressure 66 mm[Hg] Henok Hernandez PA-C Work Phone: [facility] 04-25-2024 13:39-0400 Heart rate 98 /min Henok Hernandez PA-C Work Phone: [facility] 04-25-2024 13:39-0400 Respiratory rate 18 /min Henok Hernandez PA-C Work Phone: [facility] 04-25-2024 13:39-0400 SaO2% (BldA) [Mass fraction] 95 % Henok Mary PA-C Work Phone: [facility] 04-25-2024 13:39-0400 Systolic blood pressure 110 mm[Hg] Henok Hernandez PA-C Work Phone: [facility] 04-13-2024 08:04-0400 Heart rate 92 /min Winifred Cornell DO Work Phone: [employer] [employer] 04-13-2024 07:49-0400 Body temperature 97.2 [degF] Winifred Cornell DO Work Phone: [facility] 04-13-2024 07:49-0400 Diastolic blood pressure 89 mm[Hg] Winifred Cornell DO Work Phone: [employer] 04-13-2024 07:49-0400 Respiratory rate 20 /min Winifred Cornell DO Work Phone: [facility] 04-13-2024 07:49-0400 SaO2% (BldA) [Mass fraction] 98 % Winifred Cornell DO Work Phone: [facility] [employer] 04-13-2024 07:49-0400 Systolic blood pressure 156 mm[Hg] Winifred Cornell DO Work Phone: [facility] [employer] 04-03-2024 17:52-0400 Body height 162.6 cm Winifred Cornell DO Work Phone: [facility] 04-03-2024 17:52-0400 Body mass index (BMI) [Ratio] 27.38 kg/m2 Winifred Cornell DO Work Phone: [facility] 04-03-2024 17:52-0400 Body weight 72.35 kg Winifred Cornell DO Work Phone: [facility] 07-27-2023 14:23-0500 Body height 162.6 cm Ming Weinberg MD Work Phone: [facility] 07-27-2023 14:23-0500 Body mass index (BMI) [Ratio] 27.29 kg/m2 Ming Weinberg MD Work Phone: [facility] 07-27-2023 14:23-0500 Body weight 72.12 kg Ming Weinberg MD Work Phone: [facility] 05-14-2022 15:01-0400 Diastolic blood pressure 84 mm[Hg] Jared Velazquez PA-C Work Phone: [facility] 05-14-2022 15:01-0400 Systolic blood pressure 154 mm[Hg] Jared Velazquez PA-C Work Phone: [facility] 05-14-2022 14:32-0400 Body height 162.6 cm Jared Velazquez PA-C Work Phone: [facility] 05-14-2022 14:32-0400 Body weight 72.58 kg Jared Velazquez PA-C Work Phone: [facility] 05-14-2022 14:32-0400 Heart rate 71 /min Jared Velazquez PA-C Work Phone: [facility] 05-14-2022 14:32-0400 Respiratory rate 16 /min Jaredserina Hallauraúl PA-C Work Phone: [facility] 05-14-2022 14:32-0400 SaO2% (BldA) [Mass fraction] 98 % Jared Velazquez PA-C Work Phone: [facility] 03-07-2020 09:57-0400 Body Temperature 98.71 [degF] [facility] [employer]- [facility], [place] 03-07-2020 09:57-0400 BP Diastolic 64 mm[Hg] [facility] [place] 03-07-2020 09:57-0400 BP Systolic 161 mm[Hg] [facility] [place] 03-07-2020 09:57-0400 Pulse (Heart Rate) 77 /min [facility] [place] 03-07-2020 09:57-0400 Pulse Oximetry 96 % [facility] [place] 03-07-2020 08:32-0400 Respiratory Rate 14 /min [facility] [place] 02-08-2020 20:50-0400 Body Temperature 97.5 [degF] Maryuri [employer]- [facility], [place] 02-08-2020 20:50-0400 BP Diastolic 81 mm[Hg] Maryuri [facility] [place] 02-08-2020 20:50-0400 BP Systolic 193 mm[Hg] [facility] [place] 02-08-2020 20:50-0400 Pulse (Heart Rate) 68 /min [facility] [place] 02-08-2020 20:50-0400 Pulse Oximetry 97 % [facility] [place] 02-08-2020 20:50-0400 Respiratory Rate 16 /[facility] [place] Encounters Encounter Date Encounter Type Care Provider Facility Start: 05-06-2025 ambulatory Megan Beebe OLS Faci lity:[facility] Start: 04-29-2025 ambulatory Megan Beebe OLS Faci lity:[facility] Start: 04-04-2025 ambulatory Megan Beebe OLS Faci lity:[facility] Start: 04-02-2025 ambulatory Megan Beebe OLS Faci lity:[facility] Start: 03-28-2025 ambulatory Megan Beebe OLS Faci lity:[facility] Start: 03-15-2025 End: 03-15-2025 Office outpatient visit 25 minutes Andre Patel MD Work Phone: [facility] Comment on above: Acute deep vein thro mbosis (DVT) of proximal vein of lower extremity, unspecified laterality (HCC) (Primary Dx) Start: 03-15-2025 End: 03-15-2025 ambulatory MEGAN CHARLYMARKO [facility] Start: 03-04-2025 ambulatory Megan Beebe OLS Faci lity:[facility] Start: 02-25-2025 ambulatory Megan Riveroros OLS Faci lity:[facility] Start: 02-18-2025 ambulatory Megan Riveroros OLS Faci lity:[facility] Start: 02-15-2025 ambulatory Megan Riveroros OLS Faci lity:[facility] Start: 02-11-2025 ambulatory Megan Stroudsaros OLS Faci lity:[facility] Start: 02-07-2025 ambulatory Megan Stroudsaros OLS Faci lity:[facility] Start: 02-04-2025 ambulatory Megan Stroudsaros OLS Faci lity:[facility] Start: 01-31-2025 ambulatory Peter Katsaros OLS Faci lity:[facility] Start: 01-28-2025 ambulatory Megan Beebe OLS Faci lity:[facility] Start: 01-25-2025 ambulatory Megan Beebe OLS Faci lity:[facility] Start: 01-23-2025 ambulatory Megan Beebe OLS Faci lity:[facility] Start: 01-22-2025 ambulatory Megan Riveroros OLS Faci lity:[facility] Start: 01-21-2025 ambulatory Megan Beebe OLS Faci lity:[facility] Start: 01-17-2025 ambulatory Megan Beebe OLS Faci lity:[facility] Start: 01-16-2025 ambulatory Megan Beebe OLS Faci lity:[facility] Start: 01-15-2025 ambulatory Megan Beebe OLS Faci lity:[facility] Start: 01-07-2025 ambulatory Megan Beebe OLS Faci lity:[facility] Start: 01-02-2025 End: 01-02-2025 Orders Only [facility] Comment on above: 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) Right retinal detach ment (Primary Dx); Hemorrhagic choroidal detachment of right eye; Pseudophakia, right eye Start: 12-24-2024 End: 12-24-2024 ambulatory [facility] Start: 12-24-2024 End: 12-24-2024 Office outpatient visit 15 minutes Kristyn Blankenship MD Work Phone: [facility] Vascular - [place] Comment on above: Aftercare following surgery of the circulatory system (Primary Dx); PAD (peripheral artery disease) (HCC) Start: 12-13-2024 End: 02-12-2025 Follow-up encounter Shivani Rayo CNP Work Phone: [facility] Vascular Surgery - [place] Comment on above: Vascular US lower ex tremity arterial duplex right with MICHELLE Start: 12-13-2024 End: 12-13-2024 ambulatory [facility] Start: 12-13-2024 End: 12-13-2024 Subsequent hospital visit by physician Kristyn Blankenship MD Work Phone: [facility] Comment on above: Skin ulcer of toe of right foot, limited to breakdown of skin (HCC); PAD (peripheral artery disease) (HCC); Aftercare following surgery of the circulatory system Start: 12-05-2024 End: 12-05-2024 ambulatory [facility] Start: 12-05-2024 End: 12-05-2024 Office outpatient visit 10 minutes Kristyn Blankenship MD [email or web address] Comment on above: Skin ulcer of toe of right foot, limited to breakdown of skin (HCC) (Primary Dx); PAD (peripheral artery disease) (HCC); Aftercare following surgery of the circulatory system Start: 11-22-2024 End: 11-22-2024 ambulatory 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 Start: 11-05-2024 End: 11-05-2024 Office outpatient visit 25 minutes Kristyn Blankenship MD Work Phone: [facility] Comment on above: PAD (peripheral aidee ry disease) (HCC) (Primary Dx); Skin ulcer of toe of right foot, limited to breakdown of skin (HCC) Start: 10-08-2024 End: 10-08-2024 ambulatory Megan EVERETT [facility] Work Phone: Start: 10-08-2024 End: 10-08-2024 Departed Referred Megan Vegauary [employer] Start: 10-08-2024 Registered Referred Megan Farrelluary [employer] Start: 10-08-2024 End: 10-08-2024 ambulatory Megan EVERETT Facility:[facility] Start: 10-01-2024 End: 10-01-2024 Patient encounter procedure Savana Lopez MD Work Phone: Ophthalmology Comment on above: 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); Right retinal detachment; Postoperative eye state; Pseudophakia, right eye; Subluxation of right lens Start: 10-01-2024 End: 10-01-2024 ambulatory SAVANA Khalil MAMMO Facility:[facility] Start: 09-17-2024 End: 09-17-2024 ambulatory Megan EVERETT [facility] Work Phone: Start: 09-17-2024 End: 09-17-2024 Departed Referred Megan Vegauary [employer] Start: 09-17-2024 Registered Referred Megan Farrelluary [employer] Start: 09-17-2024 End: 09-17-2024 ambulatory Megan EVERETT Facility:[facility] Start: 09-10-2024 End: 09-10-2024 ambulatory Megan EVERETT [facility] Work Phone: Start: 09-10-2024 End: 09-10-2024 Departed Referred Megan Vegauary [employer] Start: 09-10-2024 Registered Referred Megan Farrelluary [employer] Start: 09-10-2024 End: 09-10-2024 ambulatory Megan EVERETT Facility:[facility] Start: 09-05-2024 End: 09-05-2024 ambulatory SAVANA Khalil MAMMO Facility:[facility] Start: 09-05-2024 End: 09-05-2024 Patient encounter procedure Savana Lopez MD Work Phone: Ophthalmology Comment on above: Postoperative eye st ate; Hemorrhagic choroidal detachment of right eye; Pseudophakia, right eye; Subluxation of right lens Start: 09-03-2024 End: 09-03-2024 ambulatory Megan EVERETT [facility] Work Phone: Start: 09-03-2024 End: 09-03-2024 Departed Referred Megan Beebe Pringle [facility] Start: 09-03-2024 Registered Referred Megan Beebe Pringle [facility]angela [facility] Start: 09-03-2024 End: 09-03-2024 ambulatory Megan EVERETT Facility:[facility] Start: 08-22-2024 End: 08-22-2024 ambulatory JAREDSERINA EVANS [facility] Start: 08-22-2024 End: 08-22-2024 Office outpatient visit 15 minutes Henok Lantigua PA-C Work Phone: [facility] [place] Comment on above: Acute deep vein thro mbosis (DVT) of iliac vein of right lower extremity (HCC) (Primary Dx); PAD (peripheral artery disease) (HCC) Start: 08-20-2024 End: 08-20-2024 ambulatory Megan EVERETT [facility] Work Phone: Start: 08-20-2024 End: 08-20-2024 Departed Referred Megan Beebe Pringleshaun Adames [facility] Start: 08-20-2024 End: 08-20-2024 ambulatory Megan EVERETT Facility:[facility] Start: 08-03-2024 End: 08-03-2024 Subsequent hospital visit by physician [facility] Exam Room [address] [facility] [address] Comment on above: Arrived Start: 08-03-2024 End: 08-16-2024 ambulatory DEVIKA ALDANALUIS [facility] Start: 08-03-2024 End: 08-16-2024 Emergency department patient visit Mariana King DO Work Phone: [facility] Comment on above: Aspiration pneumonit is (CMS/HCC) (HCC) (Primary Dx); Vomiting and diarrhea; LOERNZA (acute kidney injury) (HCC) Start: 08-01-2024 End: 08-01-2024 ambulatory SAVANA A MAMMO Facility:[facility] Start: 08-01-2024 End: 08-01-2024 Patient [...] Start: 07-27-2024 ambulatory SAVANA A MAMMO Facility: [facility] Start: 07-23-2024 End: 07-23-2024 ambulatory SAVANA A MAMMO Facility:[facility] Start: 07-23-2024 End: 07-23-2024 Patient [...] 07-12-2024 Evaluation and management of inpatient SELF Facility:[facility] Start: 07-12-2024 End: 07-12-2024 Orders Only Namrata DEL A TORRE Ophthalmology Comment on above: 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); Dislocation of intraocular lens, initial encounter Start: 07-12-2024 End: 07-12-2024 Unlisted evaluation and management service John Phelan MD Work Phone: Ophthalmology Comment on above: 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) Start: 07-09-2024 End: 07-09-2024 Evaluation and management of inpatient SELF Facility:[facility] Start: 07-09-2024 End: 07-09-2024 Unlisted [...] Evaluation and management of inpatient RED HENDERSON Facility:[facility] Start: 07-07-2024 Emergency department patient visit PROVIDER NOT IN SYSTEM Facility:[facility] Start: 07-06-2024 End: 07-06-2024 Telephone encounter Ryan Elizondo MD Work Phone: Ophthalmology Start: 07-05-2024 End: 07-07-2024 ambulatory RED HENDERSON [facility] Start: 07-05-2024 End: 07-07-2024 Emergency department patient visit Wm Nunes DO Work Phone: [facility] Trauma Neuro Progressive Care Unit PCU 3W Comment on above: Vision loss of right eye (Primary Dx); Acute intractable headache, unspecified headache type; Visual disturbance, subjective Start: 06-19-2024 End: 07-03-2024 ambulatory DEVIKA LEUNG Facility:[facility] Start: 06-19-2024 End: 07-03-2024 Subsequent hospital visit by physician Devika Leung DO Work Phone: [facility] Comment on above: [I63.9] - Cerebral i nfarction Start: 06-10-2024 End: 06-19-2024 Evaluation and management of inpatient TORSTEN Simran KEMPSHIRA Facility:[facility] Start: 05-22-2024 End: 05-22-2024 ambulatory JARED EVANS [facility] Start: 05-21-2024 End: 05-21-2024 ambulatory HARMONY IRA [facility] Start: 05-21-2024 End: 05-21-2024 Anticoagulant drug monitoring Harmony Grey [facility] Work Phone: [facility]tico[facility] Management [facility] Comment on above: Atrial fibrillation, unspecified type (HCC); Acute venous embolism and thrombosis of deep vessels of proximal end of right lower extremity (HCC) Start: 05-14-2024 End: 05-14-2024 Subsequent hospital visit by physician Jared Evans MD Work Phone: [facility] Non-Invasive Cardiology Comment on above: Paroxysmal atrial fi brillation (HCC) Start: 05-14-2024 End: 05-14-2024 ambulatory [facility] Start: 05-09-2024 End: 05-09-2024 ambulatory [facility] Start: 05-09-2024 End: 05-09-2024 Anticoagulant drug monitoring Patty Pattie [facility] Work Phone: [facility] Comment on above: Atrial fibrillation, unspecified type (HCC); Acute venous embolism and thrombosis of deep vessels of proximal end of right lower extremity (HCC) Start: 05-01-2024 End: 05-01-2024 ambulatory [facility] Start: 05-01-2024 End: 05-01-2024 Anticoagulant drug monitoring Won Tipton RN [facility] Comment on above: Atrial fibrillation, unspecified type (HCC); Acute venous embolism and thrombosis of deep vessels of proximal end of right lower extremity (HCC) Start: 04-27-2024 End: 04-27-2024 Refill Phyllis Aguilera RN Work Phone: [facility] Comment on above: Deep vein thrombosis (DVT) of lower extremity, unspecified chronicity, unspecified laterality, unspecified vein (HCC); Atrial fibrillation, unspecified type (HCC); Acute venous embolism and thrombosis of deep vessels of proximal end of right lower extremity (HCC) Start: 04-25-2024 End: 04-25-2024 Office outpatient visit 15 minutes Henok Hernandez PA-C Work Phone: [facility] [place] Comment on above: Acute deep vein thro mbosis (DVT) of iliac vein of right lower extremity (HCC) (Primary Dx); PAD (peripheral artery disease) (HCC) Start: 04-25-2024 End: 04-25-2024 ambulatory JARED EVANS [facility] Start: 04-23-2024 End: 04-23-2024 ambulatory [facility] Start: 04-20-2024 End: 07-20-2024 Transcribe Orders Jared Evans MD Work Phone: [facility] Central Scheduling Comment on above: Paroxysmal atrial fi brillation (HCC) (Primary Dx) Start: 04-19-2024 End: 04-19-2024 ambulatory [facility] Start: 04-19-2024 End: 04-19-2024 Anticoagulant drug monitoring Marybeth Rahman [facility] Anticoagulation Management Service Comment on above: Atrial fibrillation, unspecified type (HCC); Acute venous embolism and thrombosis of deep vessels of proximal end of right lower extremity (HCC) Start: 04-16-2024 End: 04-16-2024 ambulatory ANTHONY YEE [facility] Start: 04-14-2024 End: 04-14-2024 Anticoagulant drug monitoring Ulices Orr PharmD [facility] Comment on above: Deep vein thrombosis (DVT) of lower extremity, unspecified chronicity, unspecified laterality, unspecified vein (HCC) (Primary Dx) Start: 04-03-2024 End: 04-13-2024 Evaluation and management of inpatient Winifred Cornell DO Work Phone: [facility] Medical Unit 4N Comment on [...] by physician Jared Evans MD Work Phone: [facility] MRI Comment on above: Abnormal findings on diagnostic imaging of other specified body structures; Pain in left leg Start: 06-01-2023 Transcribe Orders Jared Evans MD Work Phone: [facility] Comment on above: Abnormal findings on diagnostic imaging of other specified body structures (Primary Dx); Pain in left leg Start: 05-24-2023 End: 05-24-2023 Subsequent hospital visit by physician Jared Evans MD Work Phone: [facility] US Comment on above: Other specified soft tissue disorders Start: 05-23-2023 Transcribe Orders Jared Evans MD Work Phone: [facility] Comment on above: Other specified soft tissue disorders (Primary Dx) Start: 03-08-2023 End: 03-08-2023 Subsequent hospital visit by physician Jared Evans MD Work Phone: [facility] CT Comment on above: Localized swelling, mass and lump, neck Start: 02-28-2023 Transcribe Orders Jared Evans MD Work Phone: [facility] Comment on above: Localized swelling, mass and lump, neck (Primary Dx) Start: 02-22-2023 End: 02-22-2023 Subsequent hospital visit by physician Jared Evans MD Work Phone: [facility] US Comment on above: Localized swelling, mass and lump, neck Start: 02-17-2023 Transcribe Orders Jared Evans MD Work Phone: [facility] Comment on above: Localized swelling, mass and lump, neck (Primary Dx) Start: 07-06-2022 Telephone encounter Inés ENCINAS Comment on above: Follow Up Phone Call (All Clear) Start: 06-21-2022 End: 06-21-2022 Evaluation and management of inpatient SIM ELIZABETH Facility:[facility] Start: 06-19-2022 ambulatory Tamara Olivares [facility] [place] [address] CARD/HF/PD Start: 06-16-2022 End: 06-29-2022 Evaluation and management of inpatient BERNIE BIRD Facility:[facility] Start: 05-27-2022 Telephone encounter Jared pennington MD Work Phone: NOC Comment on above: Follow Up (Gyant int eraction - F/U - attempt made. No answer.) Start: 05-17-2022 End: 05-17-2022 Patient encounter procedure Josiah Barnes MD Work Phone: Otolaryngology Comment on above: Acute bacterial sial adenitis (Primary Dx); Bashir's, angina Start: 05-14-2022 End: 05-14-2022 Patient encounter procedure Jared Velazquez PA-C Work Phone: [facility] Comment on above: Salivary gland swell ing (Primary Dx) Start: 03-07-2020 End: 03-07-2020 Subsequent hospital visit by physician Jayla Mcmahan Work Phone: [facility] Comment on above: S/P surgical amputat ion of finger, right (Primary Dx); Finger osteomyelitis, right (HCC) Start: 03-06-2020 End: 03-06-2020 Subsequent hospital visit by physician Jayla Mcmahan Work Phone: [facility] Start: 02-08-2020 End: 02-08-2020 Emergency department patient visit Maryuri King [facility] ED Comment on above: Felon of [...] gn multiplex probe tq - Shivani Dimas PA-C Work Phone: Start: 08-03-2024 Basic metabolic pane l calcium total Shivani ARIZMENDI-C Work Phone: Start: 08-03-2024 Basic metabolic pane l calcium ionized Mariana King DO Work Phone: Start: 08-03-2024 Ct abdomen & pelvis w/o contrast material Mariana King DO Work Phone: Start: 08-03-2024 Radiologic exam ches t single view Marianasagar King DO Work Phone: Start: 08-03-2024 Comprehensive metabo lic panel Marianasagar King DO Work Phone: Start: 08-03-2024 Manual [...] Start: 06-28-2024 Blood count complete automated Devika Leung DO Work Phone: Start: 06-27-2024 Assay of ferritin Azar Katiana Springfield MD Work Phone: Start: 06-25-2024 Blood count [...] Work Phone: Start: 05-09-2024 Prothrombin time Histor jcl Yobany BROWNE Work Phone: Start: 05-01-2024 Prothrombin time Histor ical Yobany BROWNE Work Phone: Start: 04-25-2024 Follow-up visit RED HENDERSON Start: 04-19-2024 Prothrombin time Histor jcl Yobany [...] on above: Performed By: #### L [id number] ####Senior Vice President & General Counsel: VELMA VALADEZ ([phone])[facility] ([address] Start: 04-06-2024 Blood typing serologic abo [...] abdl aorta&bi il iofem w/contrast&postp Bernie Cutler [employer]NAGER [employer] Work Phone: Start: 04-03-2024 Ct head/brain w/o co ntrast material Berine Cutler MANAGER [employer] Work Phone: Start: 04-03-2024 Comprehensive metabo lic panel Bernie Cutler MANAGER [employer] Work Phone: Start: 04-03-2024 Ecg routine ecg w/le ast 12 lds trcg only w/o i&r Bernie Doner MANAGER [employer] Work Phone: Start: 06-15-2023 Mri lower extrem oth /thn jt w/o & w/contr matr Jared Evans MD Work Phone: Start: 05-24-2023 Dup-scan xtr veins unilateral/limited study Jared Evans MD Work Phone: Start: 06-21-2022 Antibody screen BERNIE BIRD Comment on above: Order Comment: Speci men Type: BLOOD SPECIMEN Ordering Facility: [facility] Address: [address] [place] [address] Performed By: #### T SCR #### [facility] CLIA [id number] [address] [place] [address] [place] Start: 03-07-2020 OPERATIVE REPORT 3m Sca nning Start: 02-08-2020 INCISION AND DRAINAGE R mona Esparzaace Work Phone: Plan of Treatment Date Care Activity Detail Author Start: 02-15-2029 DTaP/Tdap/Td vaccine (2 - Td) DTaP/Tdap/Td vaccine (2 - Td) [place] Start: 02-15-2029 DTaP/Tdap/Td Vaccines (2 - Td or Tdap) DTaP/Tdap/Td Vaccines (2 - Td or Tdap) [facility] Start: 02-15-2029 Urine microalbumin profile DTaP,Tdap,Td Vaccine (2 - Td or Tdap) [facility] Start: 08-05-2027 Diabetes Screening Diabetes Screening [facility] Start: 07-07-2027 Diabetes Screening Diabetes Screening [facility] Start: 07-06-2027 Diabetes Screening Diabetes Screening [facility] Start: 06-21-2027 Diabetes Screening Diabetes Screening [facility] Start: 08-16-2025 End: 01-23-2026 OCT MACULA CIRRUS OD (RIGHT EYE) OCT MACULA CIRRUS OD (RIGHT EYE) [facility] Imaging Routine Postoperative eye state 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, right eye Subluxation of right lens Expected: 08/16/2025, Expires: 01/23/2026 [facility] Work Phone: Comment on above: [...] of right lens Expected: 07/31/2025, Expires: 01/07/2026 [facility] Work Phone: Comment on above: Expected: 07/31/2025, Expires: Start: 07-07-2025 Diabetes: Estimated Glomerular Filtration Rate for Kidney Health Diabetes: Estimated Glomerular Filtration Rate for Kidney Health [facility] Start: 06-24-2025 DIABETES SCREEN DIABETES SCREEN [facility] Start: 06-10-2025 Thyroid stimulating hormone measurement TSH Level [facility] Start: 05-18-2025 DIABETES SCREEN DIABETES SCREEN [facility] Start: 03-18-2025 Influenza vaccination [facility] Start: 03-15-2025 End: 03-15-2025 Patient encounter procedure 03/15/2025 11:15 AM EDT Office Visit [facility] [address] [place] [phone] Andre Patel MD [address] [facility] [address] [place] [address] [facility] [place] Start: 01-02-2025 End: 01-02-2025 Patient encounter procedure 01/02/2025 9:45 AM EDT Office Visit [facility] [address] [place] [address] Savana Lopez MD [address] [place] [address] *3 M, DFE Ophthalmology Comment on above: *3 M, DFE Start: 12-24-2024 End: 12-24-2024 Patient encounter procedure 12/24/2024 2:30 PM EDT Office Visit [facility] [place] [address] [place] [phone] Kristyn Blankenship MD [address] [place] [phone] [facility] [place] Start: 12-05-2024 End: 12-05-2024 Patient encounter procedure 12/05/2024 10:00 AM EDT Office Visit [facility] [place] [address] [place] [phone] Kristyn Blankenship MD [address] [place] [address] [phone] [facility] [place] Start: 11-22-2024 End: 11-22-2024 Admission to same day surgery center 11/22/2024 9:30 AM EDT - 11/22/2024 11:30 AM EDT Surgery [facility] MA[facility] OR [address] [place] [phone] Kristyn Blankenship MD [address] [place] [phone] AORTOILIAC ANGIOGRAPHY, RIGHT LOWER EXTREMITY ANGIOGRAPHY WITH RUNOFF, POSSIBLE SUPERFICIAL FEMORAL ARTERY/POPLITEAL/TIBIAL ANGIOPLASTY/STENTING [13758 (CPT )] [facility] OR Comment on above: AORTOILIAC ANGIOGRAPHY, RIGHT LOWER EXTR EMITY ANGIOGRAPHY WITH RUNOFF, POSSIBLE SUPERFICIAL FEMORAL ARTERY/POPLITEAL/TIBIAL ANGIOPLASTY/STENTING [44216 (CPT )] Start: 11-22-2024 End: 11-22-2024 Angiography extremity unilateral rs&i ANGIOGRAM, EXTREMITY Skin ulcer of right great toe (HCC) Critical limb ischemia of right lower extremity (HCC) 11/22/2024 9:30 AM EDT [facility] Operating Room Start: 11-22-2024 Subsequent hospital visit by physician 11/22/2024 9:30 AM EDT Hospital Encounter [facility] OR [address] [facility] [place] [address] Kristyn Blankenship MD [address] [place] [address] [phone] [facility] OR Start: 11-20-2024 Subsequent hospital visit by physician 11/20/2024 Hospital Encounter [facility] OR [address] [place] [phone] Kristyn Blankenship MD [address] [place] [address] [phone] [facility] MAIN OR Start: 11-13-2024 End: 11-13-2025 Basic metabolic 1998 panel - Serum or Plasma Basic metabolic panel Lab Routine Pre-op evaluation Expected: 11/13/2024 (Approximate), Expires: 11/13/2025 [facility] Comment on above: Expected: 11/13/2024 (Approximate), Expi res: 11/13/2025 Start: 11-13-2024 End: 11-13-2025 CBC W Auto Differential panel - Blood CBC auto differential Lab Routine Pre-op evaluation Expected: 11/13/2024 (Approximate), Expires: 11/13/2025 [facility] Work Phone: Comment on above: Expected: 11/13/2024 (Approximate), Expi res: 11/13/2025 Start: 10-01-2024 End: 10-01-2024 Patient encounter procedure 10/01/2024 10:30 AM EDT Office Visit [facility] [address] [address] Savana Lopez MD [address] [place] [address] 26 Day F/U ~ DFE OD bscan OD . Ophthalmology Comment on above: 26 Day F/U ~ DFE OD bscan OD . Start: 08-22-2024 End: 08-22-2024 Patient encounter procedure 08/22/2024 10:30 AM EST Office Visit [facility] [place] [address] [place] [address] Henok Lantigua PA-C [address] [place] [address] [facility] [place] Start: 08-15-2024 End: 08-15-2024 Patient encounter procedure 08/15/2024 9:45 AM EST Office Visit [facility] [address] [place], [place] [phone] Savana Lopez MD [address] [place], [place] [phone] *1 month post op Ophthalmology Comment on above: *1 month post op Start: 08-06-2024 End: 08-06-2024 Patient encounter procedure 08/06/2024 11:00 AM EST Office Visit [facility] [place] [address] [place] [address] Henok Lantigua PA-Vita [address] [place] [address] [facility] [place] Start: 08-01-2024 End: 08-01-2024 Patient encounter procedure Ophthalmology Comment on above: *1 week post op Start: 07-31-2024 End: 07-31-2024 Patient encounter procedure [facility] - [place] Start: 07-27-2024 End: 07-27-2024 Admission to same day surgery center 07/27/2024 10:50 AM EST - 07/27/2024 12:40 PM EST Surgery Ophthalmology [address] [address] Savana Lopez MD [address] [place], [place] [phone] VITRECTOMY 25G MECH PARS PLANA APPROACH W/ REMOVAL OF PRERETINAL CELLULAR MEMBRANE Ophthalmology Comment on above: VITRECTOMY 25G [facility] PARS PLANA APPROACH W/ REMOVAL OF PRERETINAL CELLULAR MEMBRANE Start: 07-27-2024 End: 07-27-2024 Aspiration/release vitreous subretinal/choroidal RELEASE OF VITREOUS, CHOROIDAL FLUID, PARS PLANA APPROACH Hemorrhagic choroidal detachment of right eye 07/27/2024 10:50 AM EST [facility] Start: 07-27-2024 Subsequent hospital visit by physician 07/27/2024 10:50 AM EST Hospital Encounter Ophthalmology [address] [address] Savana Lopez MD [address] [place] [address] 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] Ophthalmology Comment on above: Hemorrhagic choroidal detachment of righ t eye [H31.411] Start: 07-27-2024 End: 07-27-2024 Vitrectomy pars plana remove preretinal membrane VITRECTOMY 25G [facility] PARS PLANA APPROACH W/ REMOVAL OF PRERETINAL CELLULAR MEMBRANE Hemorrhagic choroidal detachment of right eye 07/27/2024 10:50 AM EST [facility] Start: 07-23-2024 End: 07-23-2024 Patient encounter procedure 07/23/2024 10:45 AM EST Office Visit [facility] [address] [address] Savana Lopez MD [address] [place] [address] *1 W, DFE OD/BSCAN OD/OPTOS OD Ophthalmology Comment on above: *1 W, DFE OD/BSCAN OD/OPTOS OD Start: 07-18-2024 Advance Directive Discussion Advance Directive Discussion [facility] Start: 07-18-2024 Medicare Advantage Annual Wellness [...] of right eye 07/13/2024 2:04 PM EST [facility] Start: 07-13-2024 End: 07-13-2024 Evaluation and management of inpatient 07/13/2024 2:04 PM EST - 07/13/2024 3:24 PM EST Surgery Ophthalmology [address] [address] Savana Lopez MD [address] [place] [address] ASPIRATION VITREOUS, CHOROIDAL FLUID, PARS PLANA APPROACH Ophthalmology Comment on above: ASPIRATION VITREOUS, CHOROIDAL FLUID, PA RS PLANA APPROACH Start: 06-04-2024 End: 05-21-2025 POCT Prothrombin Time INR ([facility]) POCT Prothrombin Time INR ([facility]) Lab Routine Atrial fibrillation, unspecified type (HCC) Acute venous embolism and thrombosis of deep vessels of proximal end of right lower extremity (HCC) Expected: 06/04/2024, Expires: 05/21/2025 [facility] Work Phone: Comment on above: Expected: 06/04/2024, Expires: Start: 06-04-2024 End: 06-04-2024 Anticoagulant drug monitoring 06/04/2024 1:15 AM EST Anticoagulation - Warfarin Visit [facility] [address] [facility] [address] [place] [address] [facility] Start: 05-22-2024 End: 05-22-2024 Patient encounter procedure 05/22/2024 3:00 PM EST Office Visit [facility] Cardiology - [place] [address] [facility] [address] [place] [address] Hermila Padilla MD [address] [facility] [address] [place], [place] [id number] [facility] Cardiology - [place] Start: 05-22-2024 End: 05-22-2024 Anticoagulant drug monitoring 05/22/2024 12:45 AM EST Anticoagulation - Warfarin Visit [facility] [address] [phone] [facility] Start: 05-14-2024 End: 05-14-2024 Patient encounter procedure 05/14/2024 2:00 PM EDT Appointment [facility] Non-Invasive Cardiology [address] [place] [phone] [facility] Non-Invasive Cardiology Start: 05-08-2024 End: 05-01-2025 POCT Prothrombin Time INR ([facility]) POCT Prothrombin Time INR ([facility]) Lab Routine Atrial fibrillation, unspecified type (HCC) Acute venous embolism and thrombosis of deep vessels of proximal end of right lower extremity (HCC) Expected: 05/08/2024 (Approximate), Expires: 05/01/2025 [facility] Work Phone: Comment on above: Expected: 05/08/2024 (Approximate), Expi res: 05/01/2025 Start: 05-08-2024 End: 05-08-2024 Anticoagulant drug monitoring 05/08/2024 1:30 AM EDT Anticoagulation - Other Visit [facility] [address] [phone] [facility] Management [facility] Start: 05-01-2024 End: 05-01-2024 Anticoagulant drug monitoring 05/01/2024 Anticoagulation - Warfarin Visit [facility] [address] [place] [phone] [facility] Start: 04-23-2024 End: 04-19-2025 POCT Prothrombin Time INR ([facility]) POCT Prothrombin Time INR ([facility]) Lab Routine Atrial fibrillation, unspecified type (HCC) Acute venous embolism and thrombosis of deep vessels of proximal end of right lower extremity (HCC) Expected: 04/23/2024 (Approximate), Expires: 04/19/2025 [facility] Work Phone: Comment on above: Expected: 04/23/2024 (Approximate), Expi res: 04/19/2025 Start: 04-23-2024 End: 04-23-2024 Patient encounter procedure 04/23/2024 9:15 AM EDT Office Visit [facility] [place] [address] [place] [phone] Henok Hernandez PA-C [address] [place], [place] [phone] [facility] [place] Start: 04-23-2024 End: 04-23-2024 Anticoagulant drug monitoring 04/23/2024 1:15 AM EDT Anticoagulation - Warfarin Visit [facility] [address] [place] [phone] [facility] Start: 04-19-2024 End: 04-19-2024 Anticoagulant drug monitoring 04/19/2024 1:00 AM EDT Anticoagulation - Warfarin Visit [facility] [address] [place] [phone] [facility] Start: 04-16-2024 End: 04-16-2025 POCT Prothrombin Time INR ([facility]) POCT Prothrombin Time INR ([facility]) Lab Routine Deep vein thrombosis (DVT) of lower extremity, unspecified chronicity, unspecified laterality, unspecified vein (HCC) Expected: 04/16/2024, Expires: 04/16/2025 [facility] Work Phone: Comment on above: Expected: 04/16/2024, Expires: Start: 03-18-2024 Covid-19 Vaccine ( season) Covid-19 Vaccine ( season) [facility] Start: 03-18-2024 Influenza vaccination Influenza Vaccine (#1) [facility] Start: 07-18-2023 Advance Directive Discussion Advance Directive Discussion [facility] Start: 07-18-2023 Medicare Advantage Annual Wellness Visit Medicare Advantage Annual Wellness Visit [facility] Start: 03-18-2023 Influenza vaccination Influenza Vaccine (#1) [facility] Start: 03-18-2022 Influenza vaccination INFLUENZA (#1) [facility] Start: 07-18-2021 ADVANCE DIRECTIVE DISCUSSION ADVANCE DIRECTIVE DISCUSSION [facility] Start: 07-18-2021 DEPRESSION ASSESSMENT DEPRESSION ASSESSMENT [facility] Start: 03-18-2020 Influenza vaccination Flu vaccine (#1) [place], [place] Start: 03-13-2020 End: 03-13-2020 Office Visit 03/13/2020 Office Visit Orthopedic Surgery Jayla Mcmahan MD [address] [facility] [address] [place] [address] [phone] [facility] Medical [facility] Orthopedics and [facility] [place] Start: 03-07-2020 Hospital Encounter 03/07/2020 Hospital Encounter IP Unit Jayla Mcmahan MD [address] [facility] [address] [place] [address] [phone] Yoan Serrato Dept Start: 03-06-2020 Annual Wellness Visit (AWV) Annual Wellness Visit (AWV) [place], [place] Start: 04-12-2019 Pneumococcal Vaccine: 50+ Years [...] 02-13-2016 DIABETES SCREEN DIABETES SCREEN [facility] Start: 09-24-2014 RSV Immunization for Adults (1 - 1-dose 75+ series) RSV Immunization for Adults (1 - 1-dose 75+ series) [facility] Start: 04-23-2010 DIABETES SCREEN DIABETES SCREEN [facility] Start: 09-24-2004 BONE DENSITY BONE DENSITY [facility] Start: 09-24-2004 Pneumococcal 65+ years Vaccine (2 of 2 - PPSV23) Pneumococcal 65+ years Vaccine (2 of 2 - PPSV23) [place], [place] Start: 09-24-2004 PNEUMOCOCCAL: 65+ (1 - PCV) PNEUMOCOCCAL: 65+ (1 - PCV) [facility] Start: 09-24-2004 Screening for osteoporosis Bone Density Screening [facility] Start: 1999 RSV Immunization aged 60 or older (1 - 1-dose 60+ series) RSV Immunization aged 60 or older (1 - 1-dose 60+ series) [facility] Start: 09-24-1994 Screening for osteoporosis DEXA (modify frequency per FRAX score) [facility], [place] Start: 09-24-1989 Shingles Vaccine (1 of 2) Shingles Vaccine (1 of 2) [facility], [place] Start: 09-24-1989 SHINGRIX VACCINE (1 of 2) SHINGRIX VACCINE (1 of 2) [facility] Start: 09-24-1989 Zoster Vaccines (1 of 2) Zoster Vaccines (1 of 2) [facility] Start: 09-24-1958 Urine microalbumin profile DTAP,TDAP,TD (1 - Tdap) [facility] Start: 09-24-1958 Zoster Vaccines (1 of 2) Zoster Vaccines (1 of 2) [facility] Start: 09-24-1957 Anxiety Screening Anxiety Screening [facility] Start: 09-24-1957 Depression Screening Depression Screening [facility] Start: 09-24-1957 Diabetes: Urine Albumin-Creatinine Ratio for Kidney Health Diabetes: Urine Albumin-Creatinine Ratio for Kidney Health [facility] Start: 09-24-1957 SPIROMETRY SPIROMETRY [facility] Start: 1951 Depression Monitoring Depression Monitoring [facility] Start: 1951 Depresssion Monitoring Depresssion Monitoring [facility] Start: 09-24-1945 PNEUMOCOCCAL: 65+ (1 - PCV) PNEUMOCOCCAL: 65+ (1 - PCV) [facility] Start: 09-24-1944 COVID-19 Vaccine (#1) COVID-19 Vaccine (#1) [facility] Start: 03-27-1940 COVID-19 VACCINE (#1) COVID-19 VACCINE (#1) [facility] Start: 1939 Creatinine measurement Creatinine monitoring [facility] [place] [place] Start: 1939 Lipid panel Lipid Panel [facility] Start: 1939 Medicare Advantage Annual Wellness Visit (AWV) Medicare Advantage Annual Wellness Visit (AWV) [facility] Start: 1939 Potassium monitoring Potassium monitoring [facility] [place], [place] Start: 1939 Screening for osteoporosis Bone Density Scan [employer] Start: 1939 Thyroid stimulating hormone measurement TSH Level [facility] Angiography extremit y unilateral rs&i AORTOGRAM, WITH SERIALOGRAPHY Critical limb ischemia of right lower extremity (HCC) [facility] Operating Room Aortography abdomina l serialography rs&i AORTOGRAM, WITH SERIALOGRAPHY Critical limb ischemia of right lower extremity (HCC) [facility] Operating Room BSCAN OD (RIGHT EYE) BSCAN OD (R IGHT EYE) OP[facility] Imaging Routine Hemorrhagic choroidal detachment of right eye 07/09/2024 9:09 AM [facility] Work Phone: End: 01-03-2026 BSCAN OD (RIGHT EYE) BSCAN OD (RIGHT EYE) OPHT Imaging Routine Hemorrhagic choroidal detachment of right eye Dislocation of intraocular lens, initial encounter 1 Occurrences starting 07/12/2024 until 01/03/2026 [facility] Work Phone: Comment on above: 1 Occurrences starting 07/12/2024 until 01/03/2026 End: 01-07-2026 BSCAN OD (RIGHT EYE) BSCAN OD (RIGHT EYE) OPHT Imaging Routine Postoperative eye state 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, right eye Subluxation of right lens 1 Occurrences starting 07/16/2024 until 01/07/2026 [facility] Comment on above: 1 Occurrences starting 07/16/2024 until 01/07/2026 End: 02-27-2026 BSCAN OD (RIGHT EYE) BSCAN OD (RIGHT EYE) [facility] Imaging Routine Postoperative eye state 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, right eye Subluxation of right lens 1 Occurrences starting 09/05/2024 until 02/27/2026 [facility] Work Phone: Comment on above: 1 Occurrences starting 09/05/2024 until 02/27/2026 Camera fundoscopy FUNDUS PHOTOS OU (BOTH EYES) [facility] Imaging Routine Hemorrhagic choroidal detachment of right eye 07/09/2024 8:35 AM [facility] End: 03-08-2023 CT Neck W contrast IV [employer] [facility] [facility] Work Phone: Comment on above: Once for 1 Occurrences starting 03/08/20 until 03/08/2023 Incision/Drainage Incision/Drain age Procedures Routine 02/08/2020 7:17 PM EDT [facility] [place] OUTSIDE PROCEDURE SCAN OUTSIDE P ROCEDURE SCAN Procedures Ordered: 02/21/2023 [facility] Comment on above: Ordered: 02/21/2023 OUTSIDE PROCEDURE SCAN OUTSIDE P ROCEDURE SCAN Procedures Ordered: 03/07/2023 [facility] Comment on above: Ordered: 03/07/2023 OUTSIDE PROCEDURE SCAN OUTSIDE P ROCEDURE SCAN Procedures Ordered: 05/24/2023 [facility] Comment on above: Ordered: 05/24/2023 OUTSIDE PROCEDURE SCAN OUTSIDE P ROCEDURE SCAN Procedures Ordered: 06/14/2023 [facility] Comment on above: Ordered: 06/14/2023 Oxygen therapy [Minimum Data Set] Initiate Oxygen Therapy Protocol Respiratory Care Routine Daily until discontinued starting 03/07/2020 [facility] [place] Comment on above: Daily until discontinued starting 2019 End: 02-22-2023 US Head and neck soft tissue [facility] Work Phone: Comment on above: Once for 1 Occurrences starting 02/23/20 until 02/22/2023 End: 03-06-2020 XR FINGER RIGHT (MIN 2 VIEWS) XR FINGER RIGHT (MIN 2 VIEWS) Imaging Routine Once for 1 Occurrences starting 03/06/2020 until 03/06/2020 [facility] [place] Comment on above: Once for 1 Occurrences starting 03/06/20 until 03/06/2020 XR FINGER RIGHT (MIN 2 VIEWS) XR FINGER RIGHT (MIN 2 VIEWS) Imaging Routine 03/06/2020 10:20 AM EDT [facility] Immun[facility] Immunization Date Immunization Notes Care Provider [facility] 05-19-2021 Influenza, High-dose Seasonal, Quadrivalent, Preservative Free Ming Weinberg MD Work Phone: [facility] 05-19-2021 influenza virus vaccine, unspecified formulation Jared Evans MD Work Phone: [facility] 02-15-2019 pneumococcal conjuga te vaccine, 13 valent Ming Weinberg MD Work Phone: [facility] 02-15-2019 tetanus toxoid, redu larissa diphtheria toxoid, and acellular pertussis vaccine, adsorbed Ming Weinberg MD Work Phone: [employer] 06-29-2013 influenza, high dose seasonal, preservative-free Ming Weinberg MD Work Phone: [employer] NEGATED: Highlighted row has not occurred!04-05-2024 Seasonal trivalent influenza vaccine, adjuvanted, preservative free Winifred Cornell DO Work Phone: [employer] Comment on above: Deferred: Patient Re fused Payers Date Payer Category Payer Self-pay 2023 Private Health Insurance HUMANA HUMANA MEDICARE SUPPLEMENT [id number] 2023-[id number] [place] [phone] Commercial [id number] 2017 Medicare [id number] 2017 Medicare (Managed Care) [facility] [id number] [facility] MEDICARE Member Subscriber Plan / Payer (Effective 2017-Present) Name: Pop, Mel Kareem Relation to Subscriber: Self Name: Mel Pop Payer ID: [id number] (NAIC) Type: Medicare HMO Address: [address] [id number] 2017 Medicare [id number] 1939 Unknown [id number] 2.16.840.1.035610.3.579. 2.594 Unknown [id number]. 1.13.159. 2.7.3.981533.315 Unknown [id number] Unknown [id number] 2.16.840.1.845464.3.579. 2.462 Unknown [id number] 2.16840.1.323605.3.579. 2.462 Unknown [id number] 2.16.840.1.266890.3.579. 2.462 Unknown [id number] 2.16.840.1.613933.3.579. 2.462 Unknown [id number] 2.16.840.1.803819.3.579. 2.462 Unknown [id number] 2.16.840.1.452355.3.579. 2.462 Unknown [id number] 2.16840.1.401910.3.579. 2.462 Unknown [id number] 2.16.840.1.393895.3.579. 2.462 Unknown [id number] 2.16.840.1.551982.3.579. 2.462 Unknown [id number] 2.16.840.1.165730.3.579. 2.462 Unknown [id number] 2.16.840.1.513870.3.579. 2.462 Unknown [id number] 2.16.840.1.515095.3.579. 2.462 Unknown [id number] 2.16.840.1.338915.3.579. 2.462 Unknown [id number] 2.16840.1.178653.3.579. 2.462 Unknown [id number] 2.16.840.1.248146.3.579. 2.462 Unknown [id number] 2.16840.1.607441.3.579. 2.462 Unknown [id number] 2.840.1.609207.3.579. 2.462 Unknown [id number] 2.840.1.491788.3.579. 2.462 Unknown [id number] 2.840.1.644057.3.579. 2.462 Unknown [id number] 2.840.1.416696.3.579. 2.462 Unknown [id number] 2.840.1.915162.3.579. 2.462 Unknown [id number] 2.840.1.977067.3.579. 2.462 Unknown [id number] 2.840.1.741403.3.579. 2.462 Unknown [id number] 2.840.1.078543.3.579. 2.462 Unknown [id number] 2.840.1.986098.3.579. 2.462 Unknown [id number] 2.840.1.925265.3.579. 2.462 Unknown [id number] 2.840.1.850420.3.579. 2.462 Unknown [id number] 2.840.1.208877.3.579. 2.462 Unknown [id number] 2.840.1.467633.3.579. 2.462 Unknown [id number] 2.840.1.335630.3.579. 2.462 Social History Date Type Detail Facility Start: 02-08-2020 Tobacco smoking stat [facility] Start: 02-08-2020 End: 04-20-2024 Alcohol intake [facility] Start: 02-08-2020 End: 05-22-2024 Alcohol Comment occ [facility] Start: 1940 Sex Assigned At Not on file [facility] Start: 05-04-2022 End: 03-08-2023 Exposure to SARS-CoV-2 (event) Not sure [facility] Start: 03-06-2020 End: 04-25-2024 Tobacco smoking status NHIS [facility] Start: 03-06-2020 End: 04-25-2024 Tobacco use and exposure Never used [facility] Tobacco smoking stat [facility] Tobacco smoking consumption unknown [facility] Start: 05-17-2022 End: 04-04-2024 Tobacco smoking status MIIS Smokes tobacco daily [facility] History of tobacco use Cigarette Smoker C [facility] Start: 05-17-2022 End: 08-11-2024 Cigarettes smoked current (pack per day) - Reported 0.5 [facility] Start: 05-18-2022 History SDOH Financial 5 [facility] Start: 05-18-2022 History SDOH Food Worry 1 [facility] Start: 05-18-2022 History SDOH Transpo rt Med 2 [facility] Start: 07-05-2022 End: 03-15-2025 Alcohol intake Ex-drinker (finding) [facility] History of tobacco use Current smoker [facility] Start: 07-27-2023 End: 08-11-2024 Gender identity Not on file [facility] How often do you nee d to have someone help you when you read instructions, pamphlets, or other written material from your doctor or pharmacy [SILS] Never [facility] Has the [employer], or [employer] threatened to shut off services in your home in past 12Mo No [facility] Are you now , , , , never or living with a partner? [facility] How often to you hav e a drink containing alcohol? Monthly or less [facility] How often do you hav e 6 or more drinks on 1 occasion? Never [facility] How hard is it for y ou to pay for the very basics like food, housing, medical care, and heating Not very hard [facility] Do you feel stress - tense, restless, nervous, or anxious, or unable to sleep at night because your mind is troubled all the time - these days [OSQ] Not at all [facility] (I/We) worried wheth er (my/our) food would run out before (I/we) got money to buy more. Never true [facility] Start: 02-15-2022 End: 10-25-2024 Sex Female (finding) [facility] Start: 1940 Sex assigned at Female S [facility] Start: 08-03-2024 Gender identity Identifies as female gender (finding) [facility] Start: 08-03-2024 Sexual orientation Heterosexual (fin mario) [facility] NEGATED: Highlighted rowStart: NINF History of tobacco use Passive smoker [facility] Medical Equipment Procedure Code Equipment Code Equipment Origin al Text Equipment Identifier Dates Gas Ispan [employer] Intraocular Vision System [id number] [facility] - [id number] Start: 07-27-2024 Stent Vasc 6x40x 125 6f [employer] - Sna - [id number] Start: 11-22-2024 Stent Oliva 5x40x1 25 6f [employer] - Sna - [id number] Start: 11-22-2024 Functional Status Date Assessment Result Facility 07-18-2024 Are you deaf, or do you have serious difficulty hearing No 07/18/2024 12:17 PM Jaci Umana, RADHA No [facility] 07-18-2024 Are you blind, or do you have serious difficulty seeing, even when wearing glasses Yes 07/18/2024 12:17 PM Jaci Umana, RADHA Yes [facility] 07-18-2024 Do you have serious difficulty walking or climbing stairs Yes 07/18/2024 12:17 PM Jaci Umana, RADHA Yes [facility] 07-18-2024 Do you have difficul ty dressing or bathing Yes 07/18/2024 12:17 PM Jaci Umana, RN Yes [facility] 01-01-2025 Because of a physica l, mental, or emotional condition, do you have difficulty doing errands alone such as visiting a physician's office or shopping Yes 07/18/2024 12:17 PM Jaci Umana, RADHA Yes [facility] Mental Status Date Assessment Result Facility 07-18-2024 Because of a physica l, mental, or emotional condition, do you have serious difficulty concentrating, remembering, or making decisions No 07/18/2024 12:17 PM Jaci Umana, RADHA No [facility] Clinical Notes 05-14-2022 to 03-15-2025 Andre Berry MD - 03/15/2025 11:15 AM Savana Triana MD - 01/02/2025 9:45 AM Cindy Blankenship MD - 12/24/2024 2:30 PM Cindy Blankenship MD - 12/05/2024 10:00 AM EDTDischarge Instructions Note Date & Type Note Facility 03-15-2025 History of Present illness Narrative Images from the original note were not included. Andre Patel MD [facility] Hematology/Oncology - [place] [address] [facility] [address] [place] [address] Dept: [phone] Dept PROBLEM LIST: 1. Recurrent DVT: Initially [...] completing clinical documentation as well as with [id number] patient care, performing a medically appropriate examination, counseling / educating the patient/family/caregiver, and ordering medications, tests, or procedures. HPI: Mel Pop is a 84 y.o. female who presents here today with VTE Pt w/ history of severe atherosclerosis, COPD, former smoker, diverticulosis, afib, hypertension, and GERD who presented to [facility] for right lower extremity pain. Reports [...] trifurcation vessels. Vascular surgery recommended transfer to [facility]. PVR and BLE US results [...] to Coumadin. Here today w/ Lavelle (social economist from [facility]) as well as Fidel STAPLETON Pt [...] Resource Strain: Low Risk (06/20/2024) Received from [facility] Overall Financial Resource Strain (CARDIA) Difficulty [...] min Stress: Patient Unable To Answer (08/03/2024) [place] Citizen [place] of Occupational Health - Occupational Stress Questionnaire Feeling of Stress : Patient unable to answer Social Connections: Unknown (08/03/2024) Social Connection and Isolation Panel [NHANES] Frequency of Communication with Friends and Family: Patient unable to answer Frequency of Social Gatherings with Friends and Family: Patient unable to answer Attends Synagogue Services: Patient unable to answer Active Member of Clubs or Organizations: Patient unable to answer Attends Club or Organization Meetings: Never Marital Status: Patient unable to answer Recent Concern: Social Connections - Moderately Isolated (06/20/2024) Received from [facility] Social Connection and Isolation Panel [NHANES] Frequency of Communication with Friends and Family: More than three times a week Frequency of Social Gatherings with Friends and Family: Once a week Attends Synagogue Services: More than 4 times per year [...] recognition and may contain minor errors in launderer hand. [1] Past Medical History: Diagnosis Date Arrhythmia PAF Asthma Chronic kidney disease COPD (chronic obstructive pulmonary disease) (HCC) DVT (deep venous thrombosis) (HCC) Essential hypertension 03/07/2020 GERD (gastroesophageal reflux disease) Hiatal hernia IBS (irritable bowel syndrome) Pure hypercholesterolemia 03/07/2020 PVD (peripheral vascular disease) (HCC) Stroke (HCC) [2] Past Surgical History: Procedure Laterality Date ANKLE SURGERY ARM SURGERY (HISTORICAL) Right COLONOSCOPY ESOPHAGEAL DILATION EYE SURGERY Right 07/05/2024 [facility] EYE SURGERY Right 06/2024 x2, [facility] FINGER AMPUTATION Right 03/07/2020 right index [...] Percocet [Oxycodone-Acetaminophen] Itching documented in this encounter [facility] 01-02-2025 History of Present illness Narrative Can [...] choroidals (not yet appositional) - Evaluated at [facility] 07/12/24 with intense nausea and multiple episodes [...] to HTN (SBP 199/99 at presentation to [facility]) and anticoagulation that led to angle closure [...] components. documented in this encounter [facility] 01-02-2025 Note HNO ID: [id number] Author: SAVANA LOPEZ MD Service: ? 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 [facility] 12-24-2024 History of Present illness Narrative 12/24/2024 Mel Pop 1940 Chief Complaint Patient presents with Follow-up Discuss Arterial Duplex Right 12/13/24; 2nd follow up RLE angio, SFA/pop/tib angioplasty/stenting 11/22/24 ([facility] [phone]) Patient returns for post operative evaluation s/p [...] EYE SURGERY Right 06/2024 x2, [facility] FINGER AMPUTATION Right 03/07/2020 right index [...] MICHELLE PAD (peripheral artery disease) ([facility]) Relevant Orders Vascular US lower [...] I reviewed the images with the patient's [id number] who was present for today's visit as the patient is blind. Follow up after arterial duplex to discuss the results. Kristyn Blankenship MD Vascular Surgery [1] Past Surgical History: Procedure Laterality Date ANKLE SURGERY ARM SURGERY (HISTORICAL) Right COLONOSCOPY ESOPHAGEAL DILATION EYE SURGERY Right 07/05/2024 [facility] EYE SURGERY Right 06/2024 x2, [facility] FINGER AMPUTATION Right 03/07/2020 right index [...] via assessment with doppler. Transportation called for waste picker [facility] 11-22-2024 Miscellaneous Notes POA called to bedside and discharge instructions reviewed. Groin site remains intact and LE distal pulses unchanged via assessment with doppler. Transportation called for waste picker POA given updated via phone call. [...] the patient as well as the patient's rsonjpxh-zi-itw Fidel. They have elected to proceed. PROCEDURE [...] technique was used to place a 5 Malagasy sheath. The Bentson wire was positioned in [...] catheter and the catheter removed. The 5 Malagasy sheath was exchanged for a long 6 Malagasy Ansell sheath which was positioned with its [...] sheath was exchanged for a short 6 Malagasy sheath. A Vascade closure device was deployed [...] 11-22-2024 Note [facility] 11-22-2024 Procedure note OPERATIVE REPORT DATE [...] the patient as well as the patient's luvslksw-ln-zxx Fidel. They have elected to proceed. PROCEDURE [...] technique was used to place a 5 Malagasy sheath. The Bentson wire was positioned in [...] catheter and the catheter removed. The 5 Malagasy sheath was exchanged for a long 6 Malagasy Ansell sheath which was positioned with its [...] sheath was exchanged for a short 6 Malagasy sheath. A Vascade closure device was deployed [...] preoperative examination. Kristyn Blankenship MD Vascular Surgery [facility] 11-22-2024 Attending History and physical note [...] with a walker with pT at her long term facility. She is on Eliquis and statin. She is a former smoker. PastMedical History: Past Medical History: Diagnosis Date Arrhythmia PAF Asthma Chronic kidney disease COPD (chronic obstructive pulmonary disease) ([facility]) DVT (deep venous thrombosis) ([facility]) Essential hypertension 03/07/2020 GERD (gastroesophageal reflux disease) Hiatal hernia IBS (irritable bowel syndrome) Pure hypercholesterolemia 03/07/2020 PVD (peripheral vascular disease) ([facility]) Stroke ([facility]) Past Surgical History: Past Surgical History: Procedure Laterality Date ANKLE SURGERY ARM SURGERY (HISTORICAL) Right COLONOSCOPY ESOPHAGEAL DILATION EYE SURGERY Right 07/05/2024 [facility] EYE SURGERY Right 06/2024 x2, [facility] FINGER AMPUTATION Right 03/07/2020 right index [...] Resource Strain: Low Risk (06/20/2024) Received from [facility] Overall Financial Resource Strain (CARDIA) Difficulty [...] min Stress: Patient Unable To Answer (08/03/2024) [place] Citizen [place] of Occupational Health - Occupational Stress Questionnaire Feeling of Stress : Patient unable to answer Social Connections: Unknown (08/03/2024) Social Connection and Isolation Panel [NHANES] Frequency of Communication with Friends and Family: Patient unable to answer Frequency of Social Gatherings with Friends and Family: Patient unable to answer Attends Synagogue Services: Patient unable to answer Active Member of Clubs or Organizations: Patient unable to answer Attends Club or Organization Meetings: Never Marital Status: Patient unable to answer Recent Concern: Social Connections - Moderately Isolated (06/20/2024) Received from [facility] Social Connection and Isolation Panel [NHANES] Frequency of Communication with Friends and Family: More than three times a week Frequency of Social Gatherings with Friends and Family: Once a week Attends Synagogue Services: More than 4 times per year [...] like me to discuss this with her kvxqbktx-xa-yva Fidel Castillo. She states she is her POA. I have contacted Fidel via telephone and explained the above and the recommendations for angiography. She will speak with the patient and call the office to let us know how they would like to proceed. Kristyn Blankenship MD Vascular Surgery [employer] Phone: 11-22-2024 Note [employer] [facility] 11-22-2024 History and physical note H&P [...] with a walker with pT at her long term facility. She is on Eliquis and statin. She is a former smoker. PastMedical History: Past Medical History: Diagnosis Date Arrhythmia PAF Asthma Chronic kidney disease COPD (chronic obstructive pulmonary disease) ([facility]) DVT (deep venous thrombosis) ([facility]) Essential hypertension 03/07/2020 GERD (gastroesophageal reflux disease) Hiatal hernia IBS (irritable bowel syndrome) Pure hypercholesterolemia 03/07/2020 PVD (peripheral vascular disease) ([facility]) Stroke ([facility]) Past Surgical History: Past Surgical History: Procedure Laterality Date ANKLE SURGERY ARM SURGERY (HISTORICAL) Right COLONOSCOPY ESOPHAGEAL DILATION EYE SURGERY Right 07/05/2024 [facility] EYE SURGERY Right 06/2024 x2, [facility] FINGER AMPUTATION Right 03/07/2020 right index [...] eye 2 times daily. 07/06/24 07/06/25 Red Beatriz, DO Trelegy Ellipta 100-62.5-25 MCG/ACT aerosol powder [...] Resource Strain: Low Risk (06/20/2024) Received from [facility] Overall Financial Resource Strain (CARDIA) Difficulty [...] min Stress: Patient Unable To Answer (08/03/2024) [place] Citizen [place] of Occupational Health - Occupational Stress Questionnaire Feeling of Stress : Patient unable to answer Social Connections: Unknown (08/03/2024) Social Connection and Isolation Panel [NHANES] Frequency of Communication with Friends and Family: Patient unable to answer Frequency of Social Gatherings with Friends and Family: Patient unable to answer Attends Synagogue Services: Patient unable to answer Active Member of Clubs or Organizations: Patient unable to answer Attends Club or Organization Meetings: Never Marital Status: Patient unable to answer Recent Concern: Social Connections - Moderately Isolated (06/20/2024) Received from [facility] Social Connection and Isolation Panel [NHANES] Frequency of Communication with Friends and Family: More than three times a week Frequency of Social Gatherings with Friends and Family: Once a week Attends Synagogue Services: More than 4 times per year [...] like me to discuss this with her xniuplui-ni-wre Fidel Castillo. She states she is her [...] Tried to reach patie nt to discuss model builder display her procedure. Mailbox full & unable to leave voicemail. [facility] 11-05-2024 History of Present illness Narrative [...] with a walker with pT at her long term facility. She is on Eliquis and statin. She is a former smoker. PastMedical History: Past Medical History: Diagnosis Date Arrhythmia PAF Asthma Chronic kidney disease COPD (chronic obstructive pulmonary disease) ([facility]) DVT (deep venous thrombosis) ([facility]) Essential hypertension 03/07/2020 GERD (gastroesophageal reflux disease) Hiatal hernia IBS (irritable bowel syndrome) Pure hypercholesterolemia 03/07/2020 PVD (peripheral vascular disease) ([facility]) Stroke ([facility]) Past Surgical History: Past Surgical History: Procedure Laterality Date ANKLE SURGERY ARM SURGERY (HISTORICAL) Right COLONOSCOPY ESOPHAGEAL DILATION EYE SURGERY Right 07/05/2024 [facility] EYE SURGERY Right 06/2024 x2, [facility] FINGER AMPUTATION Right 03/07/2020 right index [...] min Stress: Patient Unable To Answer (08/03/2024) [place] Citizen [place] of Occupational Health - Occupational Stress Questionnaire Feeling of Stress : Patient unable to answer Social Connections: Unknown (08/03/2024) Social Connection and Isolation Panel [NHANES] Frequency of Communication with Friends and Family: Patient unable to answer Frequency of Social Gatherings with Friends and Family: Patient unable to answer Attends Synagogue Services: Patient unable to answer Active Member of Clubs or Organizations: Patient unable to answer Attends Club or Organization Meetings: Never Marital Status: Patient unable to answer Recent Concern: Social Connections - Moderately Isolated (06/20/2024) Received from [facility] Social Connection and Isolation Panel [NHANES] Frequency of Communication with Friends and Family: More than three times a week Frequency of Social Gatherings with Friends and Family: Once a week Attends Synagogue Services: More than 4 times per year [...] like me to discuss this with her orkxmhrq-sn-wwa Fidel Castillo. She states she is her POA. I have contacted Fidel via telephone and explained the above and the recommendations for angiography. She will speak with the patient and call the office to let us know how they would like to proceed. Kristyn Blankenship MD Vascular Surgery documented in this encounter [facility] 11-05-2024 Note [facility] Note Date of Procedure 10/01/2024. Sleeping Car Conductor Information CATALINA Donovan CDOS 10/01/2024 10:58 AM . Notes Interpretation of Ultrasound: ( B-Scan) Eye: OD (done from 's wheel chair with areas of limited view [...] eye documented in this encounter [facility] 10-01-2024 Note HNO ID: [id number] Author: SAVANA LOPEZ MD Service: ? Author [...] choroidals (not yet appositional) - Evaluated at [facility] 07/12/24 with intense nausea and multiple episodes [...] agree with al (more content not included)... [facility] 10-01-2024 History of Present illness Narrative [...] choroidals (not yet appositional) - Evaluated at [facility] 07/12/24 with intense nausea and multiple episodes [...] to HTN (SBP 199/99 at presentation to [facility]) and anticoagulation that led to angle closure [...] components. 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 documented in this encounter [facility] 09-05-2024 Note HNO ID: [id number] Author: SAVANA LOPEZ MD Service: ? 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 [facility] 08-22-2024 History of Present illness Narrative [facility] Vascular Surgery Follow-up Office Visit CHIEF COMPLAINT: Chief Complaint Patient presents with Follow-up 3 month follow up, [facility] HISTORY OF PRESENT ILLNESS: Mel Pop [...] EYE SURGERY Right 06/2024 x2, [facility] FINGER AMPUTATION Right 03/07/2020 right index [...] Resource Strain: Low Risk (06/20/2024) Received from [facility] Overall Financial Resource Strain (CARDIA) Difficulty [...] min Stress: Patient Unable To Answer (08/03/2024) [place] Citizen [place] of Occupational Health - Occupational Stress Questionnaire Feeling of Stress : Patient unable to answer Social Connections: Unknown (08/03/2024) Social Connection and Isolation Panel [NHANES] Frequency of Communication with Friends and Family: Patient unable to answer Frequency of Social Gatherings with Friends and Family: Patient unable to answer Attends Synagogue Services: Patient unable to answer Active Member [...] Friends and Family: Once a week Attends Synagogue Services: More than 4 times per year [...] Primary PAD (peripheral artery disease) ([facility]) 1. Stable follow up of [...] 08-16-2024 Note [facility] 08-16-2024 Nurse Note Patient picked up for transfer to [facility] by stretcher. Report already called to GENET Garcia. [facility] 08-16-2024 Nurse Note Patient picked up for transfer to [facility] by stretcher. Report already called to GENET Garcia. Telephone report called to GENET Garcia at [facility]. Bedside swallow completed. Pt passed and tolerated well tolerated well. documented in this encounter [facility] 08-16-2024 Nurse Note Telephone report called to GENET Garcia at [facility]. [facility] 08-16-2024 Note Formatting of this n ote might be different from the original. Arranged transport to [facility] via [employer] with pickup at 2pm. Notified snf of transport time via [employer] message; reviewed time with RN, clinical unit coordinator and TCC. Called pt's daughter to review discharge time., plan; she is agreeable. [facility] 08-16-2024 Note Formatting of this n ote might be different from the original. Arranged transport to [facility] via [employer] stretcher with pickup at 2pm. Notified snf of transport time via [employer] message; reviewed time with RN, clinical unit coordinator and TCC. Called pt's daughter to review discharge time., plan; she is agreeable. [facility] 08-16-2024 Miscellaneous Notes Arranged transport to [facility] via [employer] stretcher with pickup at 2pm. Notified snf of transport time via Careport message; reviewed time with RN, clinical unit coordinator and TCC. Called pt's daughter to review discharge time., plan; she is agreeable. Patient Choice Patient Name: MEL POP Date of : 1940 All Providers Sent Referral Name: [facility] Phone: [phone] Address: [address] [place] [address] Name: [facility] Phone: [phone] Address: [address] [place] [address] Name: [facility] Phone: [phone] Address: [address] [place] [address] MAR & Discharge med list [facility] per TCC request. Pt has auth to go to [facility]. Dtr Fidel,[phone] was called, message left @DC. Care Team was messaged...place DC orders/SEP. Dar YOUNG, RN complete HECTOR. [employer] will arrange transport for this am. MEDICAL RECORDS CODER tasked to sebd DC orders/MAR. Problem: Knowledge [...] met Outcome: Progressing Authorization is pending with [facility]. Ref# [id number] to be DC'd to [facility]. Dtr Fidel Updated. CM to follow. Patient [...] Progressing Pt has Been accepted to [facility]. Need PT/OT to see so auth to [...] Outcome: Progressing Referral placed to SNF- [facility] via [facility] per [facility] request. Await review and response regarding ability to accept. [facility] notified. Electronically signed by Christine Morataya [facility], 08-13-2024 at 3:00 PM Called dgt to talk about dc planning. Dgt continues to tour SNFs this evening, since she was sick this weekend. Provided me with two more SNF choices. [facility]. Tasked [facility] to create these referrals. CM to follow. [...] Dgt touring facilities over the weekend. [place]. [facility] pending acceptance, [facility]. Problem: Knowledge Deficit Goal: Patient/family/caregiver demonstrates [...] Nutritional Intake Outcome: Progressing Referral placed to [facility] via [facility] per [facility] request. Await review and response regarding ability to accept. TCC notified. Electronically signed by Christine Morataya [facility], 08-10-2024 at 9:23AM Pt was to be DC to [facility]. Found out pt and dtr didn't want to return to [facility]. SNF was made aware. On adm spoke with Dtr Fidel, ok to return. Called Dtr this am, after speaking with pt and things that happened and didn't happen. Fidel requesting a referral to be made to [facility]. [facility] tasked to send. A SNF list was emailed to Lisa. [email or web address]. She will tour facilities over weekend. CM [...] Discharge summary and med list sent via [employer] to [facility] per TCC request. Auth received. Patient with active dc orders. Transportation arranged through [employer] with estimated waste picker time of 1929. left with daughter Fidel along with 3N phone number to call with questions. Bedside RN aware. Facility updated. [facility] excavating supervisor sent orders to [facility]. senior account manager was asked to assist with setting up transport back to [facility] this evening. service secretary had already done so, but this wind project manager called daughter to inform her of discharge and transport set up. Daughter did not wish patient to return to the SNF. Superintendent Production told her that patient is medically stable for dc and that she should continue the discussion with the social economist and records administrator at [facility], and also get options from [employer]. Coordinator was to message the snf about return this evening via [employer]Port. Updated PT/OT notes placed to SNF [facility] via [employer] per TCC request. Await review and response regarding ability to accept. TCC notified. Patient is medically ready for dc. PT/OT both continuing to recommend SNF. [facility] wind project manager asked to start auth. Plan to dc back to [facility] pending auth I was off Yesterday, PT note was in from Tuesday. Therapy to see today was sent out to OT Tuesday to see yesterday. Pt was not seen. I did sent a therapy to see today to PT/OT so an auth can be started. Pt will Be Dc'd to [facility]. CM to follow. Problem: Knowledge Deficit [...] aspiration 2/2 vomiting. Discharge Plan: Return to [facility]. Therapy eval needed for precert. TCC [...] Plan is for pt to return to [facility]. Auth and HECTOR needed prior to DC. CM to follow. Per attending pt ready for DC. Pt will return to [facility]. Pt needs PT/OT to start auth [...] process, treatment plan, medications, and discharge instructions 08/03/20241456 by Lima Saenz RN Outcome: Progressing 08/03/2024 08 by Lima Saenz RN Outcome: Progressing 08/03/2024841 by Lima Saenz RN Outcome: Progressing Problem: Potential for Compromised Skin Integrity Goal: Skin Integrity is Maintained or Improved 08/03/20241456 by Lima Saenz RN Outcome: Progressing 08/03/2024841 by Lima Saenz RN Outcome: Progressing 08/03/2024841 by Lima Saenz RN Outcome: Progressing Return referral placed [facility] per [facility] request. Await review and response regarding ability to accept. TCC notified. Pt to ED w N/V/Diarrhea, was Dx w Aspiration pneumonitis. Started on IV ATB's. Called pt's Dtr, Fidel, . Pt is from [facility] Skilled. Plan on returning. [facility] tasked to send a return referral. Problem: Potential for Compromised Skin Integrity Goal: Skin Integrity is Maintained or Improved 08/03/2024841 by Lima Saenz RN Outcome: Progressing 08/03/2024841 by Lima Saenz RN Outcome: Progressing Problem: [...] : 1940 All Providers Sent Referral Name: [employer] Phone: [phone] Address: [address] [place] [address] Name: [facility] Phone: [phone] Address: [address] [place] [address] Name: [facility] Phone: [phone] Address: [address] [place] [address] [facility] 08-16-2024 Note Formatting of this n ote might be different from the original. Patient Choice Patient Name: MEL POP Date of : 1940 All Providers Sent Referral Name: [employer] Phone: [phone] Address: [address] [place] [address] Name: [facility] Phone: [phone] Address: [address] [place] [address] Name: [facility] Phone: [phone] Address: [address] [place] [address] [facility] 08-16-2024 Note Formatting of this n ote might be different from the original. MAR & Discharge med list transmitted to [facility] via [facility] per TCC request. [facility] 08-16-2024 Note Formatting of this n ote might be different from the original. MAR & Discharge med list transmitted to [facility] via [employer]port per TCC request. [facility] 08-16-2024 Note Formatting of this n ote might be different from the original. Pt has auth to go to [facility]. Dtr [phone] was called, message left @DC. Care Team was messaged...place DC orders/MAR. Dar YOUNG RN complete HECTOR. [employer] will arrange transport for this am. MEDICAL RECORDS CODER tasked to sebd DC orders/MAR. [facility] 08-16-2024 Note Formatting of this n ote might be different from the original. Pt has auth to go to [facility]. Dtr [phone] was called, message left @DC. Care Team was messaged...place DC orders/MAR. Dar YOUNG RN complete HECTOR. [employer] will arrange transport for this am. MEDICAL RECORDS CODER tasked to sebd DC orders/MAR. [facility] 08-16-2024 History of Present illness Narrative Hospitalist Progress Note 08/16/2024 Subjective: Admit Date: 08/03/2024 PCP: Jared Evans MD Room#: N5-324/[id number] A BRIEF HOSPITAL COURSE: Mel is a 83 y.o. female with past medical history below who presents with chief complaint listed above.Patient is an 83 y/o female who presented to [facility] early this AM from local [place] for vomiting and diarrhea. Patient reported she [...] MD Division of Hospitalist Medicine Acute care [facility] Hospitalist Progress Note 08/15/2024 Subjective: Admit Date: 08/03/2024 PCP: Jared Evans MD Room#: [id number] A BRIEF HOSPITAL COURSE: Mel is a 83 y.o. female with past medical history below who presents with chief complaint listed above.Patient is an 83 y/o female who presented to [facility] early this AM from [place] for vomiting and diarrhea. Patient reported she [...] [facility] Treatment Note Name/MRN: Mel Pop ([id number]) Date of : 1940 Age: 83 y.o. 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 [...] Goal: keep getting up, get back to [facility]. Encounter Problems Encounter Problems (Active) Balance Patient [...] [facility] Treatment Note Name/MRN: Mel Pop ([id number]) Date of : 1940 Age: 83 y.o. [facility]: [facility] Discharge Recommendation: Jail Facility Prior Level of Function Prior Level [...] 24/7 assist, home health OT and home housekeeper. Pt. ( Who is totally BLIND), Would due better receiving therapy in her home due to familiar environment. If she can not get 24/7 assist at home then OT recommend SNF [place]. Subjective Pt. Remains in her recliner eating [...] (ther act-1) FERDINAND Castellanos Cosigned by Shannon Fernandez OTR/[place] at 08/14/2024 2:25 PM EST Hospitalist Progress Note 08/14/2024 Subjective: Admit Date: 08/03/2024 PCP: Jared Evans MD Room#: [id number] A BRIEF HOSPITAL COURSE: Mel is a 83 y.o. female with past medical history below who presents with chief complaint listed above.Patient is an 83 y/o female who presented to [facility] early this AM from local [place] for vomiting and diarrhea. Patient reported she [...] COPD (chronic obstructive pulmonary disease) ([facility]) DVT (deep venous thrombosis) ([facility]) Essential hypertension 03/07/2020 GERD (gastroesophageal reflux disease) Hiatal hernia IBS (irritable bowel syndrome) Pure hypercholesterolemia 03/07/2020 PVD (peripheral vascular disease) ([facility]) Stroke ([facility]) LABS: CBC: No results for [...] Date: 08/03/2024 PCP: Jared Evans MD Room#: [id number] A BRIEF HOSPITAL COURSE: Mel is a 83 y.o. female with past medical history below who presents with chief complaint listed above.Patient is an 83 y/o female who presented to [facility] early this AM [place] for vomiting and diarrhea. Patient reported she [...] (HCC) DVT (deep venous thrombosis) ([facility]) Essential hypertension 03/07/2020 GERD (gastroesophageal reflux disease) Hiatal hernia IBS (irritable bowel syndrome) Pure hypercholesterolemia 03/07/2020 PVD (peripheral vascular disease) ([facility]) Stroke ([facility]) LABS: CBC: No results for [...] No significant fluid accumulation (per flow sheets) Coiler Strength: Not Performed Nutrition Assessment: 83 y.o. [...] On: Kcal/kg Weight Used for Energy Requirements: [place] Weight for Energy Calculation (kg): 54 kg Total Energy Requirements (kcals/day): 1863-9954 Weight Used for Protein Requirements: [place] Weight in Kg Used for Protein Requirements: [...] 160# 07/05) % Weight Change (Calculated): 12.2 [place] Body Weight (lbs) (Calculated): 119 lbs [place] Body Weight (Kg) (Calculated): 54 kg BMI [...] soon to determine Janki Fields RD Contact: *[phone] Hospitalist Progress Note 08/12/2024 Subjective: Admit Date: 08/03/2024 PCP: Jared Evans MD Room#: [id number]/[id number] A BRIEF HOSPITAL COURSE: Mel is a 83 y.o. female with past medical history below who presents with chief complaint listed above.Patient is an 83 y/o female who presented to [facility] early this AM from [place] for vomiting and diarrhea. Patient reported she [...] (HCC) DVT (deep venous thrombosis) ([facility]) Essential hypertension 03/07/2020 GERD (gastroesophageal reflux disease) Hiatal hernia IBS (irritable bowel syndrome) Pure hypercholesterolemia 03/07/2020 PVD (peripheral vascular disease) ([facility]) Stroke ([facility]) LABS: CBC: No results for [...] Kael Anderson DO Division of Hospitalist Medicine [employer] [facility] Hospitalist Progress Note 08/11/2024 Subjective: Admit Date: 08/03/2024 PCP: Jared Evans MD Room#: [id number] A BRIEF HOSPITAL COURSE: Mel is a 83 y.o. female with past medical history below who presents with chief complaint listed above.Patient is an 83 y/o female who presented to [facility] early this AM [place] for vomiting and diarrhea. Patient reported she [...] COPD (chronic obstructive pulmonary disease) ([facility]) DVT (deep venous thrombosis) ([facility]) Essential hypertension 03/07/2020 GERD (gastroesophageal reflux disease) Hiatal hernia IBS (irritable bowel syndrome) Pure hypercholesterolemia 03/07/2020 PVD (peripheral vascular disease) ([facility]) Stroke ([facility]) LABS: CBC: No results for [...] Date: 08/03/2024 PCP: Jared Evans MD Room#: [id number] A BRIEF HOSPITAL COURSE: Mel is a 83 y.o. female with past medical history below who presents with chief complaint listed above.Patient is an 83 y/o female who presented to [facility] early this AM [place] for [place] and diarrhea. Patient reported she [...] (HCC) DVT (deep venous thrombosis) ([facility]) Essential hypertension 03/07/2020 GERD (gastroesophageal reflux disease) Hiatal hernia IBS (irritable bowel syndrome) Pure hypercholesterolemia 03/07/2020 PVD (peripheral vascular disease) ([facility]) Stroke ([facility]) LABS: CBC: No results for [...] [facility] Hospitalist Progress Note 08/09/2024 Subjective: Admit Date: 08/03/2024 PCP: Jared Evans MD Room#: [id number] A BRIEF HOSPITAL COURSE: Mel is a 83 y.o. female with past medical history below who presents with chief complaint listed above.Patient is an 83 y/o female who presented to [facility] early this AM from [place] for vomiting and diarrhea. Patient reported she [...] (HCC) DVT (deep venous thrombosis) ([facility]) Essential hypertension 03/07/2020 GERD (gastroesophageal reflux disease) Hiatal hernia IBS (irritable bowel syndrome) Pure hypercholesterolemia 03/07/2020 PVD (peripheral vascular disease) ([facility]) Stroke ([facility]) LABS: CBC: No results for [...] Kael Anderson DO Division of Hospitalist Medicine [employer] [facility] Images from the original note were not included. OCCUPATIONAL THERAPY [facility] Initial Evaluation Name/MRN: Mel Pop ([id number]) Evaluation Date: 08/08/2024 Date of : 1940 Admission Date: 08/03/2024 2:22 AM Age: 83 y.o. [facility] Jail Facility Assessment IMPRESSION: Pt would benefit from [...] COPD (chronic obstructive pulmonary disease) ([facility]) DVT (deep venous thrombosis) ([facility]) Essential hypertension 03/07/2020 GERD (gastroesophageal reflux disease) Hiatal hernia IBS (irritable bowel syndrome) Pure hypercholesterolemia 03/07/2020 PVD (peripheral vascular disease) ([facility]) Stroke ([facility]) Past Surgical History: Past Surgical History: Procedure Laterality Date ANKLE SURGERY ARM SURGERY (HISTORICAL) Right COLONOSCOPY ESOPHAGEAL DILATION EYE SURGERY 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 HYSTERECTOMY ORTHOPEDIC SURGERY THROMBECTOMY Right 04/06/2024 RLE mechanical thrombectomy (Krzysztof) Admission Diagnosis: Patient Active Problem List Diagnosis Date Noted Aspiration pneumonitis ([facility]/HCC) ([facility]) 08/03/2024 Visual disturbance, subjective 07/06/2024 Retinal detachment, right 07/05/2024 Vision loss of right eye 07/05/2024 Acute venous embolism and thrombosis of deep vessels of proximal lower extremity ([facility]) 04/14/2024 Peripheral arterial disease ([facility]) 04/03/2024 Immunodeficiency due to conditions classified elsewhere ([facility]) 07/27/2023 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 ([facility]) 07/27/2023 Bilateral pneumonia 06/16/2022 COVID-19 06/16/2022 Hypothyroidism 06/16/2022 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[facility]) 06/16/2022 Cellulitis 05/18/2022 Nicotine use disorder 05/18/2022 Acute venous embolism and thrombosis of deep vessels of proximal end of right lower extremity ([facility]) 04/19/2024 Atrial fibrillation, unspecified type ([facility]) 04/19/2024 Irritable bowel syndrome with diarrhea 03/07/2020 Microscopic hematuria 03/07/2020 Left retinal detachment 03/07/2020 Hyperglycemia 03/07/2020 Osteopenia of left femoral neck 03/07/2020 senior care current use of anticoagulant therapy 03/07/2020 Seasonal allergies 03/07/2020 Chronic renal insufficiency, stage III (moderate) ([facility]) 03/07/2020 Major depression, single episode, in complete remission ([facility]) 03/07/2020 Gastroesophageal reflux disease without esophagitis 03/07/2020 Essential hypertension 03/07/2020 Pure hypercholesterolemia 03/07/2020 Overweight 03/07/2020 Psoriasis 03/07/2020 History of cerebrovascular accident 03/07/2020 Atrial fibrillation ([facility]) 03/07/2020 Chronic obstructive pulmonary disease ([facility]) 03/07/2020 Finger osteomyelitis, right ([facility]) 03/06/2020 Medical Precautions: Enhanced Contact [...] of Care supervision is transferred to a [facility] Therapy Services Occupational Therapist. Goals and/or treatment plan was established in collaboration with patient/family/other representatives. Shannon Fernandez MS, OTR/L Images from the original note were not included. PHYSICAL THERAPY [facility] Treatment Note Name/MRN: Mel Pop ([id number]) Date of : 1940 Age: 83 y.o. Room/Bed: N5548/N5548 A Discharge Recommendation: Jail Facility Equipment Needed: (pt uses [facility] ATHLETIC INSTRUCTOR) Prior Level of Function Prior Level of [...] Raw Score (No Stairs) : 15 [facility] Score: Walked 25 ft or more (i.e. walked outside of room) Goals Patient Stated Goal: keep getting up, get back to [facility]. Encounter Problems Encounter Problems (Active) Balance Patient [...] Date: 08/03/2024 PCP: Jared Evans MD Room#: [id number]/[id number] A BRIEF HOSPITAL COURSE: Mel is a 83 y.o. female with past medical history below who presents with chief complaint listed above.Patient is an 83 y/o female who presented to [facility] early this AM from [place] for vomiting and diarrhea. Patient reported she [...] (HCC) DVT (deep venous thrombosis) ([facility]) Essential hypertension 03/07/2020 GERD (gastroesophageal reflux disease) Hiatal hernia IBS (irritable bowel syndrome) Pure hypercholesterolemia 03/07/2020 PVD (peripheral vascular disease) ([facility]) Stroke ([facility]) LABS: CBC: Recent Labs 08/05/24 [...] Anderson DO Division of Hospitalist Medicine Acute [facility] Hospitalist Progress Note 08/07/2024 Subjective: Admit Date: 08/03/2024 PCP: Jared Evans MD Room#: [id number]/[id number] A BRIEF HOSPITAL COURSE: Mel is a 83 y.o. female with past medical history below who presents with chief complaint listed above.Patient is an 83 y/o female who presented to [facility] early this AM from [place] for vomiting and diarrhea. Patient reported she [...] 100 mL/hr, Last Rate: 100 mL/hr (08/06/24 6544) Assessment Data: Acute, acute on chronic, unstable/uncontrolled [...] Anderson DO Division of Hospitalist Medicine Acute [facility] Hospitalist Progress Note 08/06/2024 Subjective: Admit Date: 08/03/2024 PCP: Jared Evans MD Room#: [id number]/[id number] A BRIEF HOSPITAL COURSE: Mel is a 83 y.o. female with past medical history below who presents with chief complaint listed above.Patient is an 83 y/o female who presented to [facility] early this AM [place] for vomiting and diarrhea. Patient reported she [...] ABX for concern of aspiration. Interval History: 1/18: She states she is feeling better. No [...] 03/07/2020 PVD (peripheral vascular disease) ([facility]) Stroke ([facility]) LABS: CBC: Recent Labs 08/04/2444608/05/248 08/05/24 2343 WBC 5.6 6.5 7.3 RBC [...] [facility] Initial Evaluation Name/MRN: Mel Pop ([id number]) Evaluation Date: 08/06/2024 Date of : 1940 Admission Date: 08/03/2024 2:22 AM Age: 83 y.o. Room[facility]: [facility] A Discharge Recommendation: Jail Facility (pt from SNF at baseline) Equipment Needed: (pt uses [facility] ATHLETIC INSTRUCTOR) Assessment IMPRESSION: Pt's Vincent scoring has varied [...] to SNF-level care (pt was receiving PT ATHLETIC INSTRUCTOR) Admitting Diagnosis: aspiration pneumonitis, + Norovirus. S/p [...] COPD (chronic obstructive pulmonary disease) ([facility]) DVT (deep venous thrombosis) ([facility]) Essential hypertension 03/07/2020 GERD (gastroesophageal reflux disease) Hiatal hernia IBS (irritable bowel syndrome) Pure hypercholesterolemia 03/07/2020 PVD (peripheral vascular disease) ([facility]) Stroke ([facility]) Past Surgical History: Past Surgical History: Procedure Laterality Date ANKLE SURGERY ARM SURGERY (HISTORICAL) Right COLONOSCOPY ESOPHAGEAL DILATION EYE SURGERY 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 HYSTERECTOMY ORTHOPEDIC SURGERY THROMBECTOMY Right 04/06/2024 RLE mechanical thrombectomy (Krzysztof) Admission Diagnosis: Patient Active Problem List Diagnosis Date Noted Aspiration pneumonitis ([facility]) ([facility]) 08/03/2024 Visual disturbance, subjective 07/06/2024 Retinal detachment, right 07/05/2024 Vision loss of right eye 07/05/2024 Acute venous embolism and thrombosis of deep vessels of proximal lower extremity ([facility]) 04/14/2024 Peripheral arterial disease ([facility]) 04/03/2024 Immunodeficiency due to conditions classified elsewhere ([facility]) 07/27/2023 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 ([facility]) 07/27/2023 Bilateral pneumonia 06/16/2022 COVID-19 06/16/2022 Hypothyroidism 06/16/2022 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[facility]) 06/16/2022 Cellulitis 05/18/2022 Nicotine use disorder 05/18/2022 Acute venous embolism and thrombosis of deep vessels of proximal end of right lower extremity ([facility]) 04/19/2024 Atrial fibrillation, unspecified type ([facility]) 04/19/2024 Irritable bowel syndrome with diarrhea 03/07/2020 Microscopic hematuria 03/07/2020 Left retinal detachment 03/07/2020 Hyperglycemia 03/07/2020 Osteopenia of left femoral neck 03/07/2020 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 03/07/2020 Seasonal allergies 03/07/2020 Chronic renal insufficiency, stage III (moderate) ([facility]) 03/07/2020 Major depression, single episode, in complete remission ([facility]) 03/07/2020 Gastroesophageal reflux disease without esophagitis 03/07/2020 Essential hypertension 03/07/2020 Pure hypercholesterolemia 03/07/2020 Overweight 03/07/2020 Psoriasis 03/07/2020 History of cerebrovascular accident 03/07/2020 Atrial fibrillation ([facility]) 03/07/2020 Chronic obstructive pulmonary disease ([facility]) 03/07/2020 Finger osteomyelitis, right ([facility]) 03/06/2020 Medical Precautions: Enhanced Contact [...] OD Hearing: normal Social/Functional History Resident at [facility] at baseline. Goes to therapy and [...] Raw Score (No Stairs) : 15 [facility] Score: Walked 10 steps or more [...] Goal: keep getting up, get back to [facility]. Encounter Problems Encounter Problems (Active) Balance Patient [...] of Care supervision is transferred to a [facility] Therapy Services Physical Therapist. Goals and/or treatment plan was established in collaboration with patient/family/other representatives. Hospitalist Progress Note 08/05/2024 Subjective: Admit Date: 08/03/2024 PCP: Jared Evans MD Room#: [id number]/[id number] A BRIEF HOSPITAL COURSE: Mel is a 83 y.o. female with past medical history below who presents with chief complaint listed above.Patient is an 83 y/o female who presented to [facility] early this AM [place] for vomiting and diarrhea. Patient reported she [...] (HCC) DVT (deep venous thrombosis) ([facility]) Essential hypertension 03/07/2020 GERD (gastroesophageal [...] 6 5 LIVER PROFILE: Recent Labs 08/03/24 02508/04/2444608/05/24 035 AST 36* 25 24 ALT 26 26 [...] 100 mL/hr, Last Rate: 100 mL/hr (08/05/24 9299) Assessment Data: NA (LOW: 2x CAT1 or [...] PHYSICAL THERAPY [facility] Name/MRN: Mel Pop ([id number]) Date: 08/05/2024 PT orders received per Vincent activity/mobility score. Patient currently with Vincent activity/mobility score greater than 2. Per therapy services guidelines, will discharge PT orders. Please place regular PT eval/treat orders if deemed appropriate. Padmaja Wilson PT Hospitalist Progress Note 08/04/2024 Subjective: Admit Date: 08/03/2024 PCP: Jared Evans MD Room#: [id number]/[id number] A BRIEF HOSPITAL COURSE: Mel is a 83 y.o. female with past medical history below who presents with chief complaint listed above.Patient is an 83 y/o female who presented to [facility] early this AM [place] for [place] and diarrhea. Patient reported she [...] 6 6 LIVER PROFILE: Recent Labs 08/03/24 02508/04/24 0447 AST 36* 25 ALT 26 26 [...] Hospitalist Medicine [facility] documented in this encounter [facility] 08-15-2024 Plan of care note Problem: Knowledge [...] original. Authorization is pending with [employer]. Ref# [id number] to be DC'd to [facility]. Dtr Fidel Updated. CM to follow. [facility] 08-15-2024 Note Formatting of this n ote might be different from the original. Authorization is pending with [employer]. Ref# [id number] to be DC'd to [facility]. Dtr Fidel Updated. CM to follow. [facility] 08-15-2024 Note Patient progressing toward all goals. [facility] 08-15-2024 Plan of care note Patient progressing toward all goals. 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 Seasonal [...] assistance Toileting Total assistance Feeding Minimal assistance Recovery Agent Minimal assistance Med Delivery yes Wound Care [...] select all that are sent with patient): [place] RN SIGNATURE: MANAGEMENT/SOCIAL WORK SECTION Inpatient Status Date: 08/03/2024 Discharging to Facility/ Agency Name: [facility] Address: [address] [place] [address] Fax: Dialysis Facility (if applicable) Name: [facility] Address: Dialysis Schedule: Phone: Fax: [employer]ish [employer] signature: ICIAN SECTION Name: Mel Pop Prognosis: good Condition at Discharge: stable Rehab Potential (if transferring to Rehab): good Recommended Labs or Other Treatments After Discharge: none The individual is being admitted to a nursing facility directly from an [facility] or a unit of a [facility] that is not operated by or licensed by [facility] under section 5119.14 or 5160-3-15.1 5 The individual requires the level of services provided by a nursing facility for the condition for which he or she was treated in the hospital and, Physician Certification: I certify the above information and transfer of Mel Pop is necessary for the continuing treatment of the diagnosis listed and that she requires long term facility for less than 30 days. Update Admission H&P: No change in H&P PHYSICIAN SIGNATURE: documented in this encounter [facility] 08-14-2024 Note Formatting of this n ote might be different from the original. Pt has Been accepted to [facility]. Need PT/OT to see so auth to be started. Therapy to see today was sent. Called and spoke with Dtbraxton Verdin. SNF tasked w update. CM to follow. [facility] 08-14-2024 Note Formatting of this n ote might be different from the original. Pt has Been accepted to [facility]. Need PT/OT to see so auth to [...] met Outcome: Progressing [facility] 08-13-2024 Note Formatting of this n ote might be different from the original. Referral placed to SNF- [facility] via [facility] per TCC request. Await review and response regarding ability to accept. TCC notified. Electronically signed by Christine Morataya [facility], 08-13-2024 at 3:[address] [facility] 08-13-2024 Note Formatting of this n ote might be different from the original. Referral placed to SNF- [facility] via [employer] per TCC request. Await review and response regarding ability to accept. TCC notified. Electronically signed by Christine Morataya [facility], 08-13-2024 at 3:[address] [facility] 08-13-2024 Note Referral placed to S NF- [facility] via [employer] per TCC request. Await review and response regarding ability to accept. TCC notified. Electronically signed by Christine Morataya [facility], 08-13-2024 at 3:00 PM [facility] 08-13-2024 Note Formatting of this n ote might be different from the original. Called dgt to talk about dc planning. Dgt continues to tour SNFs this evening, since she was sick this weekend. Provided me with two more SNF choices. [facility]. Tasked [facility] to create these referrals. CM to follow. [facility] 08-13-2024 Note Formatting of this n ote might be different from the original. Called dgt to talk about dc planning. Dgt continues to tour SNFs this evening, since she was sick this weekend. Provided me with two more SNF choices. [facility]. Tasked [facility] to create these referrals. CM to follow. [facility] 08-13-2024 Plan of care note Problem: [...] needs are met Outcome: Progressing [facility] 08-12-2024 Note Problem: Knowledge D eficit Goal: Patient/family/caregiver demonstrates understanding of disease process, treatment plan, medications, and discharge instructions Outcome: Progressing [facility] 08-12-2024 Plan of care note Problem: Knowledge Deficit Goal: Patient/family/caregiver demonstrates understanding of disease process, treatment plan, medications, and discharge instructions Outcome: Progressing [facility] 08-12-2024 Plan of care note Problem: [...] needs are met Outcome: Progressing [facility] 08-11-2024 Plan of care note Problem: [...] My discharge needs are met Outcome: Progressing [facility] 08-11-2024 Note Formatting of this n ote might be different from the original. CM noted DC orders in place, Dgt touring facilities over the weekend. [facility] pending acceptance, updates sent via careport. [facility] 08-11-2024 Note Formatting of this n ote might be different from the original. CM noted DC orders in place, Dgt touring facilities over the weekend. [facility]. [facility] pending acceptance, updates sent via careport. [facility] 08-11-2024 Plan of care note Problem: Knowledge [...] Interventions Goal: Assess Nutritional Intake Outcome: Progressing [facility] 08-10-2024 Note Formatting of this n ote might be different from the original. Referral placed to [facility] via Careport per TCC request. Await review and response regarding ability to accept. TCC notified. Electronically signed by Christine Morataya [facility], 08-10-2024 at 9:23AM [facility] 08-10-2024 Note Formatting of this n ote might be different from the original. Referral placed to [facility] via Careport per TCC request. Await review and response regarding ability to accept. TCC notified. Electronically signed by Christine Morataya [facility], 08-10-2024 at 9:23AM [facility] 08-10-2024 Note Referral placed to [facility] via Careport per TCC request. Await review and response regarding ability to accept. TCC notified. Electronically signed by Christine Morataya [facility], 08-10-2024 at 9:23AM [facility] 08-10-2024 Note Formatting of this n ote might be different from the original. Pt was to be DC to [facility]. Found out pt and dtr didn't want to return to [facility]. SNF was made aware. On adm spoke with Dtr Fidel ok to return. Called Dtr this am, after speaking with pt and things that happened and didn't happen. Fidel requesting a referral to be made to [facility]. [facility] tasked to send. A SNF list was emailed to Lisa. [email or web address]. She will tour facilities over weekend. CM to follow. [facility] 08-10-2024 Note Formatting of this n ote might be different from the original. Pt was to be DC to [facility]. Found out pt and dtr didn't want to return to [facility]. SNF was made aware. On adm spoke with Dtr Fidel, ok to return. Called Dtr this am, after speaking with pt and things that happened and didn't happen. Fidel requesting a referral to be made to [facility]. [facility] tasked to send. A SNF list was emailed to Fidel. [email or web address]. She will tour facilities over weekend. CM to follow. [facility] 08-10-2024 Plan of care note Problem: [...] Assess Nutritional Intake Outcome: Progressing [facility] 08-09-2024 Note Formatting of this n ote might be different from the original. Discharge summary and med list sent via Careport to [facility] per [facility] request[facility] 08-09-2024 Note Formatting of this n ote might be different from the original. Discharge summary and med list sent via Careport to [facility] per TCC request. [facility] 08-09-2024 Note Discharge summary an d med list sent via Careport to [facility] per TCC request. [facility] 08-09-2024 Note Formatting of this n ote might be different from the original. Auth received. Patient with active dc orders. Transportation arranged through [employer] with estimated waste picker time of 1930. VM left with daughter Fidel along with 3N phone number to call with questions. Bedside RN aware. Facility updated. [facility] excavating supervisor sent orders to [facility]. [facility] 08-09-2024 Note Formatting of this n ote might be different from the original. Auth received. Patient with active dc orders. Transportation arranged through [employer] with estimated waste picker time of 1930. VM left with daughter Fidel along with 3N phone number to call with questions. Bedside RN aware. Facility updated. [facility] excavating supervisor sent orders to [facility]. [facility] 08-09-2024 Note Formatting of this n ote might be different from the original. senior account manager was asked to assist with setting up transport back to [facility] this evening. service secretary had already done so, but this wind project manager called daughter to inform her of discharge and transport set up. Daughter did not wish patient to return to the SNF. Superintendent Production told her that patient is medically stable for dc and that she should continue the discussion with the social economist and records administrator at The snf, and also get options from [employer]. Coordinator was to message the snf about return this evening via [employer]. [facility] 08-09-2024 Note Formatting of this n ote might be different from the original. senior account manager was asked to assist with setting up transport back to [facility] this evening. service secretary had already done so, but this wind project manager called daughter to inform her of discharge and transport set up. Daughter did not wish patient to return to the SNF. Superintendent Production told her that patient is medically stable for dc and that she should continue the discussion with the social economist and records administrator at The snf, and also get options from [employer]. Coordinator was to message the snf about return this evening via CarePort. [facility] 08-09-2024 Note [facility] 08-09-2024 Hospital course Narrative Hospitalist Discharge [...] 03/07/2020 PVD (peripheral vascular disease) ([facility]) Stroke ([facility]) Procedures: NA Hospital Course: Mle is a 83 y.o. female with past medical history below who presents with chief complaint listed above.Patient is an 83 y/o female who presented to [facility] early this AM from local [place] for vomiting and diarrhea. Patient reported she [...] Ellipta 100-62.5-25 MCG/ACT aerosol powder Generic drug: Tjufpghqnbo-Vhikevkmw-Mkesbj STOP taking these medications enoxaparin 80 MG/0.8ML [...] Complexity: follow up within 7-14 calendar days (03551) [x] Severe Complexity: follow up within 7 calendar days (76264) Follow up Testing, Pending results or Referrals [...] Kael Anderson DO Division of Hospitalist Medicine [facility] 08/09/2024, 4:23 PM documented in this encounter [facility] 08-09-2024 Note Formatting of this n ote might be different from the original. Updated PT/OT notes placed to [facility] via Careport per [facility] request. Await review and response regarding ability to accept. TCC notified. [facility] 08-09-2024 Note Formatting of this n ote might be different from the original. Updated PT/OT notes placed to [facility] per [facility] request. Await review and response regarding ability to accept. TCC notified. [facility] 08-09-2024 Note Formatting of this n ote might be different from the original. Patient is medically ready for dc. PT/OT both continuing to recommend SNF. [facility] wind project manager asked to start auth. Plan to dc back to [facility] pending auth [employer] [facility] 08-09-2024 Note Formatting of this n ote might be different from the original. Patient is medically ready for dc. PT/OT both continuing to recommend SNF. [employer] wind project manager asked to start auth. Plan to dc back to [facility] pending auth [employer] 08-08-2024 Note Formatting of this n ote might be different from the original. I was off Yesterday, PT note was in from Tuesday. Therapy to see today was sent out to OT Tuesday to see yester. Pt was not seen. I did sent a therapy to see today to PT/OT so an auth can be started. Pt will Be Dc'd to [facility]. CM to follow. [facility] [employer] 08-08-2024 Note Formatting of this n ote might be different from the original. I was off Yesterday, PT note was in from Tuesday. Therapy to see today was sent out to OT Tuesday to see yesterday. Pt was not seen. I did sent a therapy to see today to PT/OT so an auth can be started. Pt will Be Dc'd to [facility]. CM to follow. [facility] 08-07-2024 Plan of care note Problem: Knowledge Deficit Goal: Patient/family/caregiver demonstrates understanding of disease process, treatment plan, medications, and discharge instructions Outcome: Progressing Problem: Potential for Compromised Skin Integrity Goal: Skin Integrity is Maintained or Improved Outcome: Progressing Goal: Nutritional status is improving Outcome: Progressing [facility] 08-07-2024 Plan of care note Problem: [...] Assess Nutritional Intake Outcome: Progressing [facility] 08-07-2024 Note Formatting of this n ote might be different from the original. Case Management Progress Note: Patient remains on 5N for concern with aspiration 2/2 vomiting. Discharge Plan: Return to [facility]. Therapy eval needed for precert. TCC to assist and follow as needed. [facility] 08-07-2024 Note Formatting of this n ote might be different from the original. Case Management Progress Note: Patient remains on 5N for concern with aspiration 2/2 vomiting. Discharge Plan: Return to [facility]. Therapy eval needed for precert. TCC to assist and follow as needed. [facility] 08-07-2024 Plan of care note Problem: [...] Assess Nutritional Intake Outcome: Progressing [facility] 08-06-2024 Plan of care note Problem: [...] Assess Nutritional Intake Outcome: Progressing [facility] 08-06-2024 Note Formatting of this n ote might be different from the original. Pt cont's on IV AtBs'. Plan is for pt to return to [facility]. Auth and HECTOR needed prior to DC. CM to follow. [facility] 08-06-2024 Note Formatting of this n ote might be different from the original. Pt cont's on IV AtBs'. Plan is for pt to return to [facility]. Auth and HECTOR needed prior to DC. CM to follow. [facility] 08-06-2024 Note Formatting of this n ote might be different from the original. Per attending pt ready for DC. Pt will return to [facility]. Pt needs PT/OT to start auth Therapy to see put in for alistair so auth can be started. HECTOR will need completed. CM to follow. [employer] 08-06-2024 Note Formatting of this n ote might be different from the original. Per attending pt ready for DC. Pt will return to [facility]. Pt needs PT/OT to start auth Therapy to see put in for alistair so auth can be started. HECTOR will need completed. CM to follow. [employer] 08-06-2024 Consult note Associated Order (s): IP [...] assess Fluid Accumulation: No significant fluid accumulation Coiler Strength: Not Performed Nutrition Assessment: Pt hx HTN, stroke, COPD, CKD, IBS. Admitted w/ vomiting and diarrhea. +norovirus. Started on abx for concern of aspiration pna. Pt's symptoms have improved during admission. Consuming and tolerating CLD. Medically stable for discharge back to SNF per notes. Estimated Daily Nutrient Needs: Energy Requirements Based On: Kcal/kg Weight Used for Energy Requirements: [place] Weight for Energy Calculation (kg): 54 kg Total Energy Requirements (kcals/day): 9288-2231 Weight Used for Protein Requirements: [place] Weight in Kg Used for Protein Requirements: [...] 160# 07/05) % Weight Change (Calculated): 12.2 [place] Body Weight (lbs) (Calculated): 119 lbs [place] Body Weight (Kg) (Calculated): 54 kg BMI [...] to determine Gabriella Michelle RD, LD Contact: [phone] [facility] 08-06-2024 Consult note Associated Order (s): [...] assess Fluid Accumulation: No significant fluid accumulation Coiler Strength: Not Performed Nutrition Assessment: Pt hx HTN, stroke, COPD, CKD, IBS. Admitted w/ vomiting and diarrhea. +norovirus. Started on abx for concern of aspiration pna. Pt's symptoms have improved during admission. Consuming and tolerating CLD. Medically stable for discharge back to SNF per notes. Estimated Daily Nutrient Needs: Energy Requirements Based On: Kcal/kg Weight Used for Energy Requirements: [place] Weight for Energy Calculation (kg): 54 kg Total Energy Requirements (kcals/day): 5527-5449 Weight Used for Protein Requirements: [place] Weight in Kg Used for Protein Requirements: [...] 160# 07/05) % Weight Change (Calculated): 12.2 [place] Body Weight (lbs) (Calculated): 119 lbs [place] Body Weight (Kg) (Calculated): 54 kg BMI [...] to determine Gabriella Michelle RD, LD Contact: [phone] documented in this encounter [facility] integrity is maintained or improved Outcome: Progressing [facility] 08-05-2024 Plan of care note Problem: Knowledge Deficit Goal: Patient/family/caregiver demonstrates understanding of disease process, treatment plan, medications, and discharge instructions Outcome: Progressing Problem: Potential for Compromised Skin Integrity Goal: Skin Integrity is Maintained or Improved Outcome: Progressing Goal: Nutritional status is improving Outcome: Progressing Problem: Urinary Incontinence Goal: Perineal skin integrity is maintained or improved Outcome: Progressing [employer] [facility] 08-04-2024 Plan of care note Problem: Knowledge Deficit Goal: Patient/family/caregiver demonstrates understanding of disease process, treatment plan, medications, and discharge instructions Outcome: Progressing Problem: Potential for Compromised Skin Integrity Goal: Skin Integrity is Maintained or Improved Outcome: Progressing Goal: Nutritional status is improving Outcome: Progressing Problem: Urinary Incontinence Goal: Perineal skin integrity is maintained or improved Outcome: Progressing [facility] 08-04-2024 Nurse Note Bedside swallow completed. Pt passed and tolerated well tolerated well. [facility] 08-04-2024 Plan of care note Problem: Knowledge Deficit Goal: Patient/family/caregiver demonstrates understanding of disease process, treatment plan, medications, and discharge instructions Outcome: Progressing Problem: Potential for Compromised Skin Integrity Goal: Skin Integrity is Maintained or Improved Outcome: Progressing Goal: Nutritional status is improving Outcome: Progressing Problem: Urinary Incontinence Goal: Perineal skin integrity is maintained or improved Outcome: Progressing [employer] [facility] 08-03-2024 Plan of care note Problem: Knowledge [...] Lima Saenz RN Outcome: Progressing [facility] 08-03-2024 Note Formatting of this n ote might be different from the original. Return referral placed to [facility] via Careport per TCC request. Await review and response regarding ability to accept. TCC notified. [facility] 08-03-2024 Note Formatting of this n ote might be different from the original. Return referral placed to [facility] via Careport per TCC request. Await review and response regarding ability to accept. TCC notified. [facility] 08-03-2024 Note Return referral plac ed to [facility] via Careport per TCC request. Await review and response regarding ability to accept. TCC notified. [facility] 08-03-2024 Note Formatting of this n ote might be different from the original. Pt to ED w N/V/Diarrhea, was Dx w Aspiration pneumonitis. Started on IV ATB's. Called pt's Dtr, Fidel, . Pt is from [facility]. Plan on returning. [facility] tasked to send a return referral. [facility] 08-03-2024 Note Formatting of this n ote might be different from the original. Pt to ED w N/V/Diarrhea, was Dx w Aspiration pneumonitis. Started on IV ATB's. Called pt's Dtr, Fidel, . Pt is from [facility]. Plan on returning. [facility] tasked to send a return referral. [facility] 08-03-2024 History and physical note Attending History and Physical Admit Date: 08/03/2024 PCP: Jared Evans MD CHIEF COMPLAINT: vomiting/diarrhea Reason for Admission: aspiration pneumonitis History Obtained From: patient HISTORY OF PRESENT ILLNESS: Mel is a 83 y.o. female with past medical history below who presents with chief complaint listed above.Patient is an 83 y/o female who presented to [facility] early this AM from [place] for vomiting and diarrhea. Patient reported she [...] COPD (chronic obstructive pulmonary disease) ([facility]) DVT (deep venous thrombosis) ([facility]) Essential hypertension 03/07/2020 GERD (gastroesophageal reflux disease) Hiatal hernia IBS (irritable bowel syndrome) Pure hypercholesterolemia 03/07/2020 PVD (peripheral vascular disease) ([facility]) Stroke ([facility]) Past Surgical History: Past Surgical [...] Resource Strain: Low Risk (06/20/2024) Received from [facility] Medical Overall Financial Resource Strain (CARDIA) Difficulty [...] min Stress: Patient Unable To Answer (08/03/2024) [place] Citizen [place] of Occupational Health - Occupational Stress Questionnaire Feeling of Stress : Patient unable to answer Social Connections: Unknown (08/03/2024) Social Connection and Isolation Panel [NHANES] Frequency of Communication with Friends and Family: Patient unable to answer Frequency of Social Gatherings with Friends and Family: Patient unable to answer Attends Synagogue Services: Patient unable to answer Active Member of Clubs or Organizations: Patient unable to answer Attends Club or Organization Meetings: Never Marital Status: Patient unable to answer Recent Concern: Social Connections - Moderately Isolated (06/20/2024) Received from [facility] Medical Social Connection and Isolation Panel [NHANES] Frequency of Communication with Friends and Family: More than three times a week Frequency of Social Gatherings with Friends and Family: Once a week Attends Synagogue Services: More than 4 times per year [...] mgmt was pursued: - inpatient admission to [facility] tele - check stool studies and cdiff, [...] - DO NOT do CPR, intubation] [_] [DNR-GRAVURE PRESS OPERATOR - Comfort care only] [_] DNR form [...] sounds present no guarding or regular rigidity [employer] Work Phone: 08-03-2024 Note [employer] [facility] 08-03-2024 History and physical note Attending History and Physical Admit Date: 08/03/2024 PCP: Jared Evans MD CHIEF COMPLAINT: vomiting/diarrhea Reason for Admission: aspiration pneumonitis History Obtained From: patient HISTORY OF PRESENT ILLNESS: Mel is a 83 y.o. female with past medical history below who presents with chief complaint listed above.Patient is an 83 y/o female who presented to [facility] early this AM [place] and diarrhea. Patient reported she [...] COPD (chronic obstructive pulmonary disease) ([facility]) DVT (deep venous thrombosis) ([facility]) Essential hypertension 03/07/2020 GERD (gastroesophageal reflux disease) Hiatal hernia IBS (irritable bowel syndrome) Pure hypercholesterolemia 03/07/2020 PVD (peripheral vascular disease) ([facility]) Stroke ([facility]) Past Surgical History: Past Surgical [...] Resource Strain: Low Risk (06/20/2024) Received from [facility] Medical Overall Financial Resource Strain (CARDIA) Difficulty [...] min Stress: Patient Unable To Answer (08/03/2024) [place] Citizen [place] of Occupational Health - Occupational Stress Questionnaire Feeling of Stress : Patient unable to answer Social Connections: Unknown (08/03/2024) Social Connection and Isolation Panel [NHANES] Frequency of Communication with Friends and Family: Patient unable to answer Frequency of Social Gatherings with Friends and Family: Patient unable to answer Attends Synagogue Services: Patient unable to answer Active Member of Clubs or Organizations: Patient unable to answer Attends Club or Organization Meetings: Never Marital Status: Patient unable to answer Recent Concern: Social Connections - Moderately Isolated (06/20/2024) Received from [facility] Social Connection and Isolation Panel [NHANES] Frequency of Communication with Friends and Family: More than three times a week Frequency of Social Gatherings with Friends and Family: Once a week Attends Synagogue Services: More than 4 times per year [...] mgmt was pursued: - inpatient admission to [facility] tele - check stool studies and cdiff, [...] - DO NOT do CPR, intubation] [_] [DNR-GRAVURE PRESS OPERATOR - Comfort care only] [_] DNR form [...] [id number] by Lima Saenz RN Outcome: Progressing [employer] 08-03-2024 Plan of care note Problem: Knowledge Deficit Goal: Patient/family/caregiver demonstrates understanding of disease process, treatment plan, medications, and discharge instructions Outcome: Progressing Problem: Potential for Compromised Skin Integrity Goal: Skin Integrity is Maintained or Improved Outcome: Progressing [employer] 08-03-2024 Emergency department Note Pt placed in [facility]trip [facility] 08-03-2024 Emergency department Note Pt placed in [...] who presents to the emergency department from [facility] for acute onset nausea/vomiting/diarrhea x 3 episodes that began 45 minutes prior to arrival. No blood in emesis or diarrhea. Given single dose of Zofran by correction staff following first episode but subsequently soon [...] 45 minutes prior to ED transport for correction. retirement reports a second resident with similar symptoms earlier today. No known flu or COVID exposures. Patient denying other flu or COVID symptoms such as headache, myalgias, fevers, congestion, cough. Nursing Notes were reviewed. Limitations to history: None Outside historians: retirement staff (Jabari) REVIEW OF SYSTEMS Review of Systems Negative except per HPI PAST MEDICAL HISTORY Past Medical History: Diagnosis Date Arrhythmia PAF Asthma Chronic kidney disease COPD (chronic obstructive pulmonary disease) ([facility]) DVT (deep venous thrombosis) ([facility]) Essential hypertension 03/07/2020 GERD (gastroesophageal reflux disease) Hiatal hernia IBS (irritable bowel syndrome) Pure hypercholesterolemia 03/07/2020 PVD (peripheral vascular disease) ([facility]) Stroke ([facility]) SURGICAL HISTORY Past Surgical History: [...] Resource Strain: Low Risk (06/20/2024) Received from [facility] Medical Overall Financial Resource Strain (CARDIA) Difficulty of Paying Living Expenses: Not very hard Food Insecurity: No Food Insecurity (07/09/2024) Received from [facility] Hunger Vital Sign Worried About Running Out of Food in the Last Year: Never true Ran Out of Food in the Last Year: Never true Transportation Needs: No Transportation Needs (07/09/2024) Received from [facility] PRAPARE - Transportation Lack of Transportation (Medical): No Lack of Transportation (Non-Medical): No Physical Activity: Inactive (04/04/2024) Exercise Vital Sign Days of Exercise per Week: 0 days Minutes of Exercise per Session: 0 min Stress: No Stress Concern Present (06/19/2024) Received from [facility] of Occupational Health - Occupational Stress Questionnaire Feeling of Stress : Not at all Social Connections: Moderately Isolated (06/20/2024) Received from [facility] Social Connection and Isolation Panel [NHANES] Frequency of Communication with Friends and Family: More than three times a week Frequency of Social Gatherings with Friends and Family: Once a week Attends Synagogue Services: More than 4 times per year Active Member of Clubs or Organizations: No Attends Club or Organization Meetings: Never Marital Status: Intimate Partner Violence: Not At Risk (06/19/2024) Received from [facility] Domestic Abuse Assessment Do you feel safe in your relationships at home?: Yes Physical Abuse: Denies Verbal Abuse: Denies Housing Stability: Low Risk (07/09/2024) Received from [facility] Housing Stability Vital Sign Unable to [...] No bowel dilatation Report Dictated on Workstation: [employer] Electronically Signed By: Ming Fry MD Electronically Signed Date/Time: 08/03/2024 4:05 AM EST XR chest 1 view Final Result No acute abnormality Report Dictated on Workstation: [employer] Electronically Signed By: Ming Fry MD Electronically [...] In compliance with this authorization, please visit www.fda.gov/media/991120/download or www.fda.gov/media/619637/download to access the applicable information sheets. LIPASE [...] who presents to the emergency department from [facility] for acute onset nausea/vomiting/diarrhea x 3 episodes that began 45 minutes prior to arrival. No blood in emesis or diarrhea. Given single dose of Zofran by correction staff following first episode of emesis but [...] 45 minutes prior to ED transport for correction. retirement reports a second resident with similar symptoms [...] baseline. Patient admitted to medical service at [facility] under Dr. Parrish. ED Medications managed: [...] IMPRESSION 1. Aspiration pneumonitis (CMS/HCC) ([facility]) 2. Vomiting and diarrhea 3. LORENZA (acute kidney injury) ([facility]) DISPOSITION Observation 08/03/2024 04:20:39 AM [...] who presents to the emergency department from [facility] for acute onset nausea/vomiting/diarrhea x 3 episodes that began 45 minutes prior to arrival. No blood in emesis or diarrhea. Given single dose of Zofran by correction staff following first episode but subsequently soon [...] 45 minutes prior to ED transport for correction. retirement reports a second resident with similar symptoms earlier today. No known flu or COVID exposures. Patient denying other flu or COVID symptoms such as headache, myalgias, fevers, congestion, cough. Nursing Notes were reviewed. Limitations to history: None Outside historians: retirement staff (Jabari) REVIEW OF SYSTEMS Review of Systems Negative except per HPI PAST MEDICAL HISTORY Past Medical History: Diagnosis Date Arrhythmia PAF Asthma Chronic kidney disease COPD (chronic obstructive pulmonary disease) (HCC) DVT (deep venous thrombosis) ([facility]) Essential hypertension 03/07/2020 GERD (gastroesophageal reflux disease) Hiatal hernia IBS (irritable bowel syndrome) Pure hypercholesterolemia 03/07/2020 PVD (peripheral vascular disease) ([facility]) Stroke ([facility]) SURGICAL HISTORY Past Surgical History: [...] Resource Strain: Low Risk (06/20/2024) Received from [facility] Overall Financial Resource Strain (CARDIA) Difficulty of Paying Living Expenses: Not very hard Food Insecurity: No Food Insecurity (07/09/2024) Received from [facility] Hunger Vital Sign Worried About Running Out of Food in the Last Year: Never true Ran Out of Food in the Last Year: Never true Transportation Needs: No Transportation Needs (07/09/2024) Received from [facility] PRAPARE - Transportation Lack of Transportation (Medical): No Lack of Transportation (Non-Medical): No Physical Activity: Inactive (04/04/2024) Exercise Vital Sign Days of Exercise per Week: 0 days Minutes of Exercise per Session: 0 min Stress: No Stress Concern Present (06/19/2024) Received from [facility] of Occupational Health - Occupational Stress Questionnaire Feeling of Stress : Not at all Social Connections: Moderately Isolated (06/20/2024) Received from [facility] Social Connection and Isolation Panel [NHANES] Frequency of Communication with Friends and Family: More than three times a week Frequency of Social Gatherings with Friends and Family: Once a week Attends Synagogue Services: More than 4 times per year Active Member of Clubs or Organizations: No Attends Club or Organization Meetings: Never Marital Status: Intimate Partner Violence: Not At Risk (06/19/2024) Received from [facility] Assessment Do you feel safe in your relationships at home?: Yes Physical Abuse: Denies Verbal Abuse: Denies Housing Stability: Low Risk (07/09/2024) Received from [facility] Housing Stability Vital Sign Unable to [...] No bowel dilatation Report Dictated on Workstation: [employer] Electronically Signed By: Ming Fry MD Electronically Signed Date/Time: 08/03/2024 4:05 AM EST XR chest 1 view Final Result No acute abnormality Report Dictated on Workstation: [employer] Electronically Signed By: Ming Fry MD Electronically [...] In compliance with this authorization, please visit www.fda.gov/media/645669/download or www.fda.gov/media/601553/download to access the applicable information sheets. LIPASE [...] who presents to the emergency department from [facility] for acute onset nausea/vomiting/diarrhea x 3 episodes that began 45 minutes prior to arrival. No blood in emesis or diarrhea. Given single dose of Zofran by correction staff following first episode of emesis but [...] 45 minutes prior to ED transport for correction. retirement reports a second resident with similar symptoms [...] baseline. Patient admitted to medical service at [facility] under Dr. Parrish. ED Medications managed: Medications ondansetron (Zofran) injection 4 mg (4 mg IntraVENous Given 1/17/25 0255) famotidine (Pepcid) 20 mg in sodium chloride (PF) 0.9 % 10 mL injection (20 mg IntraVENous Given 08/03/24254) morphine injection 2 mg (2 mg IntraVENous Given 08/03/24254) promethazine (Phenergan) injection 25 mg (25 mg IntraMUSCular Given 08/03/24 0406) FINAL IMPRESSION 1. Aspiration pneumonitis (CMS/HCC) ([facility]) 2. Vomiting and diarrhea 3. LORENZA (acute kidney injury) ([facility]) DISPOSITION Observation 08/03/2024 04:20:39 AM [...] Medicine Provider Mariana King DO 08/03/24 0422 [facility] 08-01-2024 Instructions Savana Lopez MD - 08/01/2024 1:06 PM EST - Continue Pred forte 4x / day right eye - Stop Cipro - Stop Brimonidine - Continue erythromycin antibiotic ointment as needed - Continue Atropine daily RIGHT eye - Continue Timolol 2x / day RIGHT EYE documented in this encounter [facility] 08-01-2024 Note HNO ID: [id number] Author: SAVANA LOPEZ MD Service: ? Author [...] choroidals (not yet appositional) - Evaluated at [facility] 07/12/24 with intense nausea and multiple episodes [...] agree with all of its relevant components. [facility] 08-01-2024 History of Present illness Narrative [...] choroidals (not yet appositional) - Evaluated at [facility] 07/12/24 with intense nausea and multiple episodes [...] components. documented in this encounter [facility] 07-30-2024 Note HNO ID: [id number] Author: JOHN PHELAN MD Service: ? Author [...] agree with all of its relevant components. [facility] 07-30-2024 Note HNO ID: [id number] Author: JOHN PHELAN MD Service: ? Author [...] agree with all of its relevant components. [facility] 07-27-2024 Instructions Nicolas Sahu MD - [...] day Ciprofloxacin (flores cap) 4x daily Atropine (credit and collection manager) 1x daily Continue timolol (yellow cap) 2x [...] C Trouble breathing Contact Dr. Savana Lopez [phone] weekdays from 8am-5pm During non-business hours, please call [phone] or ext [phone] and ask for the eye doctor senior online marketing manager. documented in this encounter [facility] 07-27-2024 Note HNO ID: [id number] Author: NICOLAS SAHU MD Service: ? Author [...] scheduled Nicolas Sahu MD Vitreoretinal Surgery Fellow [facility] 07-27-2024 History of Present illness Narrative [...] Fellow documented in this encounter [facility] 07-27-2024 Note HNO ID: [id number] Author: MIKHAIL NICHOLS APRN.PRETZEL COOKER Service: ? Author Type: Nurse Repairer Veneer Sheet Type: Anesthesia Procedure Notes Filed: 07/27/2024 11:25 Note Text: ANESTHESIOLOGY PROCEDURE NOTE Airway General Information Procedure Start Time/Medication Administration: 07/27/2024 11:21 AM Procedure End Time: 07/27/2024 11:24 AM Staffing Anesthesiologist: Robinson Brunner MD PRETZEL COOKER: Mikhail Nichols APRN.PRETZEL COOKER Performed by: anesthesiologist and PRETZEL COOKER Indications and Patient Condition Indications for airway management: anesthesia Preoxygenated: yes Patient position: sniffing Method: asleep Final Airway Details Final airway type: supraglottic airway Number of attempts at approach: 1 Final Supraglottic Airway: LMA Classic Size 4 Seal Adequate: yes Failed airway: no Unrecognized esophageal intubation: no SIGNATURE: Mikhail Nichols APRN.PRETZEL COOKER PATIENT NAME: Mel Castillo DATE: July 27, 2024 TIME: 11:24 AM CSN: [id number] [facility] 07-24-2024 Note Date of Procedure 07/23/2024. Sleeping Car Conductor Information Civil Preparedness Officer: WESLEY. Start time: 10:44 AM. No view. In wheelchair. Unable to get low enough for photo in downgaze without discomfort. Notes Hazy view, VH; choroidals; possible RD [facility] 07-24-2024 Note Date of Procedure 07/23/2024. Sleeping Car Conductor Information STEWART Donovan CDOS 07/23/2024 11:24 AM [...] 20mg - Decrease atropine daily right eye (credit and collection manager) - Continue prednisolone QID right eye (pink [...] 30 days before your surgery. My surgical dressing maker will be contacting you to schedule this appointment. Your exact time of surgery will not be determined until the day before surgery. My surgical dressing maker will call you the day before your surgery to advise you what time to arrive at the [facility] on the first floor at the [facility]. My surgical dressing maker is Gaston, her number is [phone] Please do no wear contact lenses. We [...] fellow. It will be at the [facility] on the 2nd floor. We will [...] Regine Gan in the Pre-anesthesia Consultation Clinic ([phone]) to get instructions on their use before [...] a Pre-Anesthesia Testing engineering team supervisor at [phone]. documented in this encounter [facility] 07-23-2024 Note HNO ID: [id number] Author: SAVANA LOPEZ MD Service: ? Author [...] choroidals (not yet appositional) - Evaluated at [facility] 07/12/24 with intense nausea and multiple episodes [...] agree with all of its relevant components. [facility] 07-23-2024 History of Present illness Narrative [...] choroidals (not yet appositional) - Evaluated at [facility] 07/12/24 with intense nausea and multiple episodes [...] to HTN (SBP 199/99 at presentation to [facility]) and anticoagulation that led to angle closure [...] components. documented in this encounter [facility] 07-18-2024 Note HNO ID: [id number] Author: JACI JUAREZ RN Service: Nursing Author Type: Registered Nurse Type: Progress Notes Filed: 07/18/2024 14:08 Note Text: Report given to nurse at [facility]. Transport running behind schedule. [facility] 07-16-2024 Note HNO ID: [id number] Author: MICHAEL SOARES MD Service: Ophthalmology Author Type: Resident Type: Plan of Care Filed: 07/16/2024 21:02 Note Text: Patient evaluated today at [facility] by retina attending Dr. Lopez. Assessment/plan copied [...] choroidals (not yet appositional) - Evaluated at [facility] 07/12/24 with intense nausea and multiple episodes [...] to HTN (SBP 199/99 at presentation to [facility]) and anticoagulation that led to angle closure [...] be admitted for this but may need long term facility due to limited vision in her monocular eye; she has a very poor prognosis; there is no guarantee surgery will improve her vision but need to wait for any possible surgery for more liquefaction; maybe could do 07/31/24? - I will see her in 1 week for repeat B-scan OD / Optos OD" [facility] 07-16-2024 Note HNO ID: [id number] Author: ALAINA TIPTON, RADHA Service: ? Author Type: Registered Nurse Type: Progress Notes Filed: 07/16/2024 19:27 Note Text: At 15:00 PM, Per Doctor Car, place connector to Call Light for the patient. Clip placed onto the Call Light for patient to reach. Sign placed onto the patient's door to set patient up to eat, and assist feed. Doctor Car, on the division, and aware. [facility] 07-16-2024 Note HNO ID: [id number] Author: TRACEY NANCE RN Service: Care Management Author Type: Registered Nurse Type: Care Mgt Progress Note Filed: 07/16/2024 16:49 Note Text: CARE MANAGEMENT PROGRESS NOTE SERVICE DATE: 07/16/2024 SERVICE TIME: 1:04 PM LOS: 9 days Post-Acute Discharge Planning Patient Goal(s): Increase strength [place] of Choice Explained: Discharge Planning Participant(s): Patient/Family Comments: Anticipated # of Days Until Discharge: 0 Transport at Discharge: Needs Prior to Discharge: Needs Prior to Discharge: OT/PT Evaluation Post-Acute Discharge Plan: Discharge to [facility] per [facility]OC. Await updated PT for pre cert initiation. SIGNATURE: Tracey Nance RN PATIENT NAME: Mel Castillo DATE: July 16, 2024 TIME: 1:04 PM [facility] 07-16-2024 Note Date of Procedure 07/16/2024. Sleeping Car Conductor Information Civil Preparedness Officer: Arin Vital. Start time: 8:56 AM. Stop time: 8:56 AM. Notes OD only; Hard view 360 hemorrhagic choroidals [facility] 07-16-2024 Note Date of Procedure 07/16/2024. Sleeping Car Conductor Information STEWART Donovan 07/16/2024 9:34 AM . [...] choroidals (not yet appositional) - Evaluated at [facility] 07/12/24 with intense nausea and multiple episodes [...] to HTN (SBP 199/99 at presentation to [facility]) and anticoagulation that led to angle closure [...] of IOL (Chelita/Luis Alberto) - Today IOP 17, [facility] [...] be admitted for this but may need long term facility due to limited vision in her [...] components. documented in this encounter [facility] 07-16-2024 Note HNO ID: [id number] Author: SAVANA LOPEZ MD Service: ? Author [...] choroidals (not yet appositional) - Evaluated at [facility] 07/12/24 with intense nausea and multiple episodes [...] be admitted for this but may need long term facility due to limited vision in her [...] of its relev (more content not included)... [facility] 07-16-2024 Note HNO ID: [id number] Author: BRIANA PRITCHARD MD Service: General Internal Medicine Author Type: Physician Type: Progress Notes Filed: 07/16/2024 14:26 Note Text: Internal Medicine - Dae Miranda Progress Note Patient Name: Mel Castillo Patient Location: [place] [address] Admission Date: 07/07/2024 Length of Stay: 9 Primary Service: DAE Miranda Staff: Briana Pritchard MD Primary Service: Dae Miranda INTERVAL HISTORY: - No acute events overnight. Bradycardic to 50s overnight but this AM HDS and afebrile - This AM seen by ophthalmology at [facility] Opt appointment Objective MEDICATIONS: Current Facility-Administered Medications [...] Drain Duration External Collection Device 07/15/24 1000 [facility] <1 day Intake/Output 07/12/24 0700 - 07/13/24 [...] PMH of COPD (more content not included)... [facility] 07-15-2024 Note HNO ID: [id number] Author: OTILIO GERBER MD Service: Ophthalmology Author [...] to HTN (SBP 199/99 at presentation to [facility]) that caused angle closure and elevated IOP [...] BRING PATIENT DOWN FOR FOLLOW UP AT [facility] - Post-op precautions reviewed, including: Signs and symptoms of endophthalmitis, and retinal detachment warning signs reviewed, including increasing floaters, flashes or changes in peripheral vision. [facility] 07-15-2024 Note HNO ID: [id number] Author: BRIANA PRITCHARD MD Service: General Internal [...] 9.1 9.3 9.3 (more content not included)... [facility] 07-14-2024 Note HNO ID: [id number] Author: BRIANA PRITCHARD MD Service: Hospital Medicine Author Type: Physician Type: Progress Notes Filed: 07/14/2024 13:37 Note Text: Internal Medicine - Dae Miranda Progress Note Patient Name: Mel Castillo [address] Admission Date: 07/07/2024 Length of Stay: [...] Castillo is a (more content not included)... [facility] 07-14-2024 Note HNO ID: [id number] Author: NICOLAS SAHU MD Service: Ophthalmology Author [...] choroidals (not yet appositional) - Evaluated at [facility] 07/12/24 with intense nausea and multiple episodes [...] to HTN (SBP 199/99 at presentation to [facility]) that caused angle closure and elevated IOP [...] (Mammo/Luis Alberto) - Doing better - IOP 17, [...] vision. Nicolas Sahu MD Vitreoretinal Surgery Fellow [facility] 07-13-2024 Note HNO ID: [id number] Author: MARCIA MARTINS APRN.PRETZEL COOKER Service: ? Author Type: Nurse Repairer Veneer Sheet Type: Anesthesia Procedure Notes Filed: 07/13/2024 12:43 Note Text: ANESTHESIOLOGY PROCEDURE NOTE Airway General Information Procedure Start Time/Medication Administration: 07/13/2024 12:28 PM Procedure End Time: 07/13/2024 12:42 PM Patient location during procedure: OR Timeout Performed Pre-procedure: timeout performed Consent Obtained: Yes Patient identity confirmed: arm band, care engineering team supervisor and patient Staffing PRETZEL COOKER: Marcia Martins APRN.PRETZEL COOKER Performed by: PRETZEL COOKER Indications and Patient Condition Indications for airway management: anesthesia Preoxygenated: yes anesthesia circuit Method: sleep Difficult Mask: No Final Airway Details Final airway type: supraglottic airway Number of attempts at approach: 1 Final Supraglottic Airway: Supraglottic airway: ambu auraonce. Size 4 Seal Adequate: yes Failed airway: no Unrecognized esophageal intubation: no Airway not difficult Comments atraumatic SIGNATURE: Marcia Martins APRN.PRETZEL COOKER PATIENT NAME: Mel Castillo DATE: July 13, 2024 TIME: 12:42 PM CSN: [id number] [facility] 07-13-2024 Note HNO ID: [id number] Author: FELICIA LEVY MD Service: General Internal [...] of vision now s/p laser iridotomy at [facility] then trasnferred to [facility] for further management. S/p multiple peripheral iridotomies [...] Note Patient Name: Mel Castillo [address] Admission Date: 07/07/2024 Length of Stay: [...] mg ORAL DAILY (more content not included)... [facility] 07-12-2024 Note HNO ID: [id number] Author: TRACEY NANCE RN Service: Care Management Author Type: Registered Nurse Type: Care Mgt Progress Note Filed: 07/12/2024 16:50 Note Text: CARE MANAGEMENT PROGRESS NOTE SERVICE DATE: 07/12/2024 SERVICE TIME: 4:46 PM LOS: 5 days Post-Acute Discharge Planning Patient Goal(s): Increase strength [place] of Choice Explained: Discharge Planning Participant(s): Patient/Family Comments: Anticipated # of Days Until Discharge: 0 Transport at Discharge: Needs Prior to Discharge: Post-Acute Discharge Plan: Await SNF irene spoke w/ daughter in law Fidel Garcia sent to Mya MORENO yesterday. This CM reached out to [facility] via email for choices. Daughter In law cannot recall selections. covering CM will need to reach out to Mya tomorrow for selections that were emailed to her. SIGNATURE: Tracey Nance RN PATIENT NAME: Mel Castillo DATE: July 12, 2024 TIME: 4:46 PM [facility] 07-12-2024 Note Date of Procedure 07/12/2024. Sleeping Car Conductor Information CHAR Veliz ROUB 07/12/2024 12:15 PM . Notes B scan OD: From wheelchair. Patient vomiting during this visit. Best images possible. 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 Possible increased height maximum now at 12:00 measuring 10.0 mm. 2) Not able to assess for mobility today due to patient discomfort 3) SRF over choroidals in three quadrants. [facility] 07-12-2024 Note Date of Procedure 07/12/2024. Sleeping Car Conductor Information Civil Preparedness Officer: JACQUELINE. Imaging Comments: Limited exam due to patient discomfort-best images possible . Notes Worsening choroid detachments [facility] 07-12-2024 Note HNO ID: [id number] Author: THOMAS SCHMITZ MD Service: ? Author [...] choroidals (not yet appositional) - Evaluated at [facility] 07/12/24 with intense nausea and multiple episodes [...] to HTN (SBP 199/99 at presentation to [facility]) that caused angle closure and elevated IOP [...] Resident, PGY-[address] Phelan [facility] 07-12-2024 History of Present illness Narrative [...] choroidals (not yet appositional) - Evaluated at [facility] 07/12/24 with intense nausea and multiple episodes [...] Phelan documented in this encounter [facility] 07-12-2024 Note HNO ID: [id number] Author: FELICIA LEVY MD Service: General Internal [...] of vision now s/p laser iridotomy at [facility] then trasnferred to [facility] for further management. S/p multiple peripheral iridotomies [...] possible dispo to SNF or home with [facility] (challenging given multiple daily eye drops [...] ORAL BID HYDROmorpho (more content not included)... [facility] 07-11-2024 Note HNO ID: [id number] Author: FELICIA LEVY MD Service: General Internal [...] of vision now s/p laser iridotomy at [facility] then trasnferred to [facility] for further management. S/p multiple peripheral iridotomies [...] H PRN AL (more content not included)... [facility] 07-10-2024 Note HNO ID: [id number] Author: FELICIA LEVY MD Service: General Internal [...] of vision now s/p laser iridotomy at [facility] then trasnferred to [facility] for further management. S/p multiple peripheral iridotomies [...] Range in last (more content not included)... [facility] 07-09-2024 Note HNO ID: [id number] Author: TRACEY NANCE RN Service: Care Management [...] Current Advance Directive: Health Care Power of Matcher Offbearer In Chart: Yes Up To Date and Valid: Yes Current Living Arrangements and Support Lives with: Alone Type of Residence: Mobile Home Support: Friends/neighbors, Family members How do you manage to accomplish the following: Independent: Ambulation;Bathe/Shower;Dress;Angélica g to the bathroom Needs Assistance: Meals/Meal Prep;Medication Management;Transportation to appointments/community Current Services/Equipment Discharge Planning Patient Goal(s): Increase strength [place] of Choice Explained: [place] of Choice Given: Yes Level of Care Discussed: Home Care Are you interested in bedside delivery of your medications? Yes Discharge Planning Participant(s): Caregiver;Family Patient/Family Comments: Fidel Hdez (Other) Caregiver Assessment: Caregiver is ready, willing and able to meet the patient's needs as recommended by the inter-professional team: (friends) Transport at Discharge: Transportation Arrangements: Car Destination: [address] [place] [address] [address] [facility] [address] Needs Prior to Discharge: Post-Acute Discharge Plan: Anticipate DC home with [facility] 24-48 hours. HC referrals placed . Await OT evaluation. Patient lives alone in trailer , There are 4 steps to entrance, Using rolator prior to admission. Patient independent with ADL and assist with iADL prior to admission.Patient receives meals on wheels. Family transport to appointments and can provide automotive parts interpreter assist. Family transport home. This CM spoke [...] DATE: July 09, 2024 TIME: 4:07 PM [facility] 07-09-2024 Note HNO ID: [id number] Author: NADIA VIDAL ? Service: Pharmacy Author Type: Classics Professor Type: Plan of Care Filed: 07/09/2024 12:31 Note Text: Insurance investigation completed Patient has active prescription insurance: Yes - Patient's insurance is in-network with [facility] Insurance loaded into [place]: Yes Test claim was completed to verify insurance is active: Successful Any questions, please reach out to your medication medical staff services coordinator. [facility] 07-09-2024 Note HNO ID: [id number] Author: GISSELL POPE RPh Service: Pharmacy Author Type: Pharmacist Type: Plan of Care Filed: 07/09/2024 12:32 Note Text: PHARMACY MEDICATION REVIEW Patient Name: Mel Castillo : 1940 The following medications were updated within the ATHLETIC INSTRUCTOR medication list: Medications ADDED to ATHLETIC INSTRUCTOR medication list Furosemide 40 mg prn swelling Medications CHANGED on ATHLETIC INSTRUCTOR medication list Lisinopril 10 mg changed to 40 mg Increased from 5 mg daily to 40 mg daily on last hospital discharge Medications REMOVED from ATHLETIC INSTRUCTOR medication list Albuterol HFA PRN Lidocaine 4% [...] Yes Completed by: Gissell Pope RPh All ATHLETIC INSTRUCTOR medications addressed by LIP Patient interested in Bedside Delivery Services or using [facility] OP Pharmacy at discharge? Yes. Discharge Pharmacy Updated Preferred outpatient pharmacy: e- [facility]/pharmacy #[id number] [place] [address] [facility] [phone] [facility] Allergies: Percocet [Oxycodone* Itching [...] Inject 0.7 mL subcutaneously every 12 hours. djuyoiwsrkc-ebulkoazc-qyaersdy (TRELEGY ELLIPTA) 100-62.5-25 mcg inhalation powder 07/06/2024 [...] Drop (MYDRIACYL) None recorded 1 Gissell Pope RPh 07/09/2024 [facility] 07-09-2024 Note HNO ID: [id number] Author: OTILIO GERBER MD Service: ? Author [...] Follow up with Dr. Lopez Monday 07/16 [facility] eye clinic -Can continue anticoagulation [...] NLP vision Otilio Gerber MD Ophthalmology Resident [facility] Patient seen and discussed with Dr. Phelan [facility] 07-09-2024 History of Present illness Narrative OPHTHALMOLOGY CONSULT PROGRESS NOTE Patient Name: Mel Castillo Patient Admission Date: 07/07/2024 Today's Date: 07/09/24 Interval history: - CT orbits reviewed with good globe contour no evidence of open globe, known choroidal detachments present -Still with 8/10 pain OD improved form /10 on presentation Assessment/Plan: PMH: COPD, HLD, HTN, [...] to HTN (SBP 199/99 at presentation to [facility]) that caused angle closure and elevated IOP [...] Follow up with Dr. Lopez Monday 07/16 [facility] eye clinic -Can continue anticoagulation [...] NLP vision Otilio Gerber MD Ophthalmology Resident [facility] Patient seen and discussed with Dr. Phelan documented in this encounter [facility] 07-09-2024 Note HNO ID: [id number] Author: FELICIA LEVY MD Service: General Internal [...] of vision now s/p laser iridotomy at [facility] then trasnferred to [facility] for further management. S/p multiple peripheral iridotomies [...] 24h Temp: 36.7 ?C (98.1 ?F) (07/09/24 0408) Temp Min: 36.4 ?C (97.5 ?F) Max: [...] (ml) -2 350 (more content not included)... [facility] 07-08-2024 Note HNO ID: [id number] Author: FELICIA LEVY MD Service: Hospital Medicine [...] of vision now s/p laser iridotomy at [facility] then trasnferred to [facility] for further management. Plan: - Ophthalmology consult [...] Note Patient Name: Mel Castillo [id number] Admission Date: 07/07/2024 Length of Stay: [...] Labs 07/07/24 1853 (more content not included)... [facility] 07-07-2024 Note HNO ID: [id number] Author: JARED GILMORE MD Service: ? Author [...] components. Jared Gilmore MD Vitreoretinal Surgery Fellow [facility] 07-07-2024 History of Present illness Narrative [...] Gilmore documented in this encounter [facility] 07-07-2024 Note [facility] 07-07-2024 Hospital course Narrative Discharge Summary Hospitalist Discharge Summary Mel Pop : 1940 Admit date: 07/05/2024 Discharge date: 07/07/2024 Admitting Physician: Red Henderson DO Primary Care Physician: Jared Evasn MD Visit Status: Transfer to [facility] Code [...] (HCC) DVT (deep venous thrombosis) ([facility]) Essential hypertension 03/07/2020 GERD (gastroesophageal reflux disease) Hiatal hernia IBS (irritable bowel syndrome) Pure hypercholesterolemia 03/07/2020 PVD (peripheral vascular disease) ([facility]) Stroke ([facility]) Procedures: multiple peripheral iridotomies Hospital [...] Ellipta 100-62.5-25 MCG/ACT aerosol powder Generic drug: Feuseogdtds-Mflgdyjci-Aaxmcy STOP taking these medications albuterol 108 (90 [...] ophthalmic solution Recommended Follow-up: Tre Lombardi MD [address] [place] [address] [address] [facility] [phone] Call in 2 month(s) Need follow up in December 2024 for aneurysm surveillence Complexity of Follow up: [] Moderate Complexity: follow up within 7-14 calendar days (52385) [x] Severe Complexity: follow up within 7 calendar days (83956) - after DC from [facility] Follow up [...] Henderson DO Division of Hospitalist Medicine Acute [facility] 07/07/2024, 11:08 AM documented in this encounter [facility] 07-07-2024 Nurse Note Report called to [facility]. [facility] 07-07-2024 Nurse Note Report called to [facility]. This RN called Protective Services [...] set up through roundtrip via cot with [employer] for 10:30am. RN, pt and pt's dtr [...] in mobile home. Consults in progress. Need [facility] to follow - does have pcp [...] is working on this . With staff. C she is agreeable to it if goes home . [employer] Mel Pop : 1940 Primary Care Physician: Jared Evans MD The patient and/or family/surrogate voluntarily agreed to participate in ACP services. Patient s cognitive capacity: intact Code Status: [ ] [FULL CODE - Continue all advanced life support: CPR,intubation,invasive procedures] [ X ] [DNR-CCA - DO NOT do CPR, intubation] [_] [DNR-GRAVURE PRESS OPERATOR - Comfort care only] [_] DNR form [was/was not] signed Summary of discussion: The patient health care POA/ surrogate is the following: DAYA Fidelsimran Castillo ([facility]) I answered all the patient/family questions [...] with patient and/or family/surrogate. Silvio Peres MD [facility] 07/05/2024, 1:18 PM documented in this encounter [facility] 07-07-2024 History of Present illness Narrative Nutrition rescreen completed. Chart reviewed. Patient to be monitored and followed by the diet communication technician. Images from the original note were not included. PHYSICAL THERAPY [facility] Initial Evaluation Name/MRN: Mel Pop ([id number]) Evaluation Date: 07/06/2024 Date of : 1940 Admission Date: 07/05/2024 4:21 AM Age: 83 y.o. Room[facility]Bed: [facility] Discharge Recommendation: Jail Facility Equipment Needed: (tbd) Assessment IMPRESSION: The [...] COPD (chronic obstructive pulmonary disease) ([facility]) DVT (deep venous thrombosis) ([facility]) Essential hypertension 03/07/2020 GERD (gastroesophageal reflux disease) Hiatal hernia IBS (irritable bowel syndrome) Pure hypercholesterolemia 03/07/2020 PVD (peripheral vascular disease) ([facility]) Stroke ([facility]) Past Surgical History: Past Surgical [...] vessels of proximal lower extremity ([facility]) 04/14/2024 Peripheral arterial disease ([facility]) 04/03/2024 Immunodeficiency due to conditions classified elsewhere ([facility]) 07/27/2023 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 ([facility]) 07/27/2023 Bilateral pneumonia 06/16/2022 COVID-19 06/16/2022 Hypothyroidism 06/16/2022 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[facility]) 06/16/2022 Cellulitis 05/18/2022 Nicotine use disorder 05/18/2022 Acute venous embolism and thrombosis of deep vessels of proximal end of right lower extremity ([facility]) 04/19/2024 Atrial fibrillation, unspecified type ([facility]) 04/19/2024 Irritable bowel syndrome with diarrhea 03/07/2020 Microscopic hematuria 03/07/2020 Left retinal detachment 03/07/2020 Hyperglycemia 03/07/2020 Osteopenia of left femoral neck 03/07/2020 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 03/07/2020 Seasonal allergies 03/07/2020 Chronic renal insufficiency, stage III (moderate) ([facility]) 03/07/2020 Major depression, single episode, in complete remission ([facility]) 03/07/2020 Gastroesophageal reflux disease without esophagitis 03/07/2020 Essential hypertension 03/07/2020 Pure hypercholesterolemia 03/07/2020 Overweight 03/07/2020 Psoriasis 03/07/2020 History of cerebrovascular accident 03/07/2020 Atrial fibrillation ([facility]) 03/07/2020 Chronic obstructive pulmonary disease ([facility]) 03/07/2020 Finger osteomyelitis, right ([facility]) 03/06/2020 Medical Precautions: No active [...] support system of friends and family Active Sleeping Bag Filler: Prior Level of Function Prior Level of [...] Raw Score (No Stairs) : 15 [facility] Score: Walked 25 ft or more [...] of Care supervision is transferred to a [facility] Therapy Services Physical Therapist. Goals and/or treatment [...] (HCC) DVT (deep venous thrombosis) ([facility]) Essential hypertension 03/07/2020 GERD (gastroesophageal reflux disease) Hiatal hernia IBS (irritable bowel syndrome) Pure hypercholesterolemia 03/07/2020 PVD (peripheral vascular disease) ([facility]) Stroke ([facility]) LABS: CBC: Recent Labs 07/05/24 [...] possible transfer there as potential wait at [facility] Hx of recent left cerebellar infarct Incidental [...] Henderson DO Division of Hospitalist Medicine Acute [facility] documented in this encounter [facility] 07-06-2024 Nurse Note This RN called Protective Services to try and locate pts lost glasses from 07/05/2024. Glasses that match the description are in lost and found. Will attempt to see if glasses are a match. [facility] 07-06-2024 Telephone encounter Note TELEPHONE ENCOUNTER 07/06/2024 Patient with recent stroke and admitted to [facility] where she was noted to have elevated IOP with retinal detachment of the right eye by consult back sizer. She has a history of RD in [...] Ryan Elizondo MD Ophthalmology Resident [facility] Work Phone: 07-06-2024 Miscellaneous Notes TELEPHONE ENCOUNTER 07/06/2024 Patient with recent stroke and admitted to [facility] where she was noted to have elevated IOP with retinal detachment of the right eye by consult back sizer. She has a history of RD in [...] Resident documented in this encounter [facility] 07-06-2024 Note Formatting of this n ote might be different from the original. Complicated discharge , live alone, poor vision - PT/OT now ordered- live in mobile home. Consults in progress. Need [facility] to follow - does have pcp [...] is working on this . With staff. [facility] she is agreeable to it if goes home . [employer] 07-06-2024 Note Formatting of this n ote might be different from the original. Complicated discharge , live alone, poor vision - PT/OT now ordered- live in mobile home. Consults in progress. Need [facility] to follow - does have pcp [...] is working on this . With staff. [facility] she is agreeable to it if goes home . [facility] 07-06-2024 Consult note Formatting of th is [...] to a retinal subspecialist at either [facility] or [facility] for repair of retinal detachment right eye (OD). Continue ophthalmic pressure lowering ophthalmic meds right eye (OD) until seen by retinal subspecialist. [employer] Work Phone: 07-06-2024 Consult note Formatting of [...] to a retinal subspecialist at either [facility] or [facility] for repair of retinal detachment right [...] days. Associated Order(s): Inpatient consult to Endovascular Neurology--[facility] Inpatient consult to Endovascular Neurology--[facility] Consult performed by: Helga Naik APRN - STRETCHING MACHINE TENDER FRAME Consult ordered by: Wm Nunes DO Reason [...] COPD (chronic obstructive pulmonary disease) ([facility]), DVT (deep venous thrombosis) ([facility]), Essential hypertension (03/07/2020), GERD (gastroesophageal reflux disease), Hiatal hernia, IBS (irritable bowel syndrome), Pure hypercholesterolemia (03/07/2020), PVD (peripheral vascular disease) ([facility]), and Stroke ([facility]). She has no past medical history of Cancer ([facility]) ([facility]), Cerebral artery occlusion with cerebral infarction ([facility]), CHF (congestive heart failure) ([facility]), Diabetes mellitus ([facility]), Hemodialysis patient ([facility]) ([facility]), blood clots, or MDRO (multiple [...] Name: Mel Pop Patient : 1940 Acct: [id number] Date of Admission: 07/05/2024 Room/Bed: 60/60 PCP: [...] COPD (chronic obstructive pulmonary disease) ([facility]) DVT (deep venous thrombosis) ([facility]) Essential hypertension 03/07/2020 GERD (gastroesophageal reflux disease) Hiatal hernia IBS (irritable bowel syndrome) Pure hypercholesterolemia 03/07/2020 PVD (peripheral vascular disease) ([facility]) Stroke ([facility]) Past Surgical History: Past Surgical [...] Historical Provider, ergocalciferol (Vitamin D2) 1.25 MG (24465 UT) capsule Take 1.25 mg by mouth [...] EC tablet 07/18/23 Historical Provider, MD Flores Delilahta 100-62.5-25 MCG/ACT aerosol powder 05/19/23 Historical Provider, warfarin (Coumadin) 5 MG tablet Take as directed by [facility] Anticoagulation Clinic (90 tablets = [...] , Rfl: ergocalciferol (Vitamin D2) 1.25 MG (00708 UT) capsule, Take 1.25 mg by mouth [...] 5 MG tablet, Take as directed by [facility] Anticoagulation Clinic (90 tablets = [...] motor function: 0=Normal Total: 2 Pre-admission Modified [place] Score: 1 __ 0 No symptoms at [...] drops are started. Will continue to follow. [facility] 07-05-[address] Carlson at bedside. [facility] 07-05-[address] Carlson [...] to Maritza FRAGA Emergency Department Encounter Location: [facility] EMERGENCY DEPT Patient: Mel Pop [...] 423 ms QTC Interval 418 ms P [place] 0 degrees QRS [place] 37 degrees T Wave [place] 29 degrees UT Interval 0 ms Troponin, High Sensitivity, Serial, [...] IV. I discussed with Dr. Peres from [facility] hospitalist service who accepted the admit. Medications [...] Given 07/05/24 0517) I am not the strainer cleaner of record. Dr. Nunes is the strainer cleaner of record. Final Impression 1. Vision loss [...] - DO NOT do CPR, intubation] [_] [DNR-GRAVURE PRESS OPERATOR - Comfort care only] [_] DNR form [was/was not] signed Summary of discussion: The patient health care POA/ surrogate is the following: Fidel STAPLETON (José Miguel) I answered all the patient/family questions that [...] with patient and/or family/surrogate. Silvio Peres MD [employer] 07/05/2024, 1:18 PM [facility] 07-05-2024 Note Formatting of this n ote [...] - DO NOT do CPR, intubation] [_] [DNR-GRAVURE PRESS OPERATOR - Comfort care only] [_] DNR form [...] with patient and/or family/surrogate. 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 History Obtained From: patient and patient's [id number]-[id number] HISTORY OF PRESENT ILLNESS: Mel is a [...] Resource Strain: Low Risk (06/20/2024) Received from [facility] Overall Financial Resource Strain (CARDIA) Difficulty of Paying Living Expenses: Not very hard Food Insecurity: No Food Insecurity (06/20/2024) Received from [facility] Hunger Vital Sign Worried About Running Out of Food in the Last Year: Never true Ran Out of Food in the Last Year: Never true Transportation Needs: No Transportation Needs (07/02/2024) Received from [facility] Transportation Source Has lack of transportation [...] No Stress Concern Present (06/19/2024) Received from [facility] [place] of Occupational Health - Occupational Stress Questionnaire Feeling of Stress : Not at all Social Connections: Moderately Isolated (06/20/2024) Received from [facility] Social Connection and Isolation Panel [NHANES] Frequency of Communication with Friends and Family: More than three times a week Frequency of Social Gatherings with Friends and Family: Once a week Attends Synagogue Services: More than 4 times per year Active Member of Clubs or Organizations: No Attends Club or Organization Meetings: Never Marital Status: Intimate Partner Violence: Not At Risk (06/19/2024) Received from [facility] Domestic Abuse Assessment Do you feel safe in your relationships at home?: Yes Physical Abuse: Denies [facility] Domestic Abuse - Type of Abuse: Not on file [facility] Domestic Abuse - Time Frame: Not on file [facility] Domestic Abuse - Signs and Symptoms: Not on file Verbal Abuse: Denies [facility] Domestic Abuse - Reported To: Not on file Housing Stability: Low Risk (06/20/2024) Received from [facility] Housing Stability Vital Sign Unable to [...] the evening. ergocalciferol (Vitamin D2) 1.25 MG (78955 UT) capsule Take 1.25 mg by mouth [...] 5 MG tablet Take as directed by [facility] Anticoagulation Clinic (90 tablets = [...] 07/05/2024 Patient Name: MEL POP : 1940 [facility]#: [id number] Exam Date/Time: 07/05/2024 04:36 Procedure: CT HEAD [...] 07/05/2024 Patient Name: MEL POP : 1940 [facility]#: [id number] Exam Date/Time: 07/05/2024 04:36 Procedure: CT PERFUSION [...] glucose meter Result Date: 07/05/2024 Performed by: [facility], [address] [place] [address] CLIA ID: [id number] Assessment / Plan Discussed management with the [...] MD Division of Hospitalist Medicine Acute care [facility] Dictated using [employer] Version 2.4 Proof read however unrecognized voice recognition errors may have occurred [employer] Work Phone: 07-05-2024 Note [employer] [facility] 07-05-2024 History and physical note Attending History and Physical Admit Date: 07/05/2024 PCP: Jarde Evans MD CHIEF COMPLAINT: Loss of vision right eye, headache/eye pain, nausea, eye swelling Reason for Admission: 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 History Obtained From: patient and patient's yhtiidyf-ow-imq HISTORY OF PRESENT ILLNESS: Mel is a [...] COPD (chronic obstructive pulmonary disease) ([facility]) DVT (deep venous thrombosis) ([facility]) Essential hypertension 03/07/2020 GERD (gastroesophageal reflux disease) Hiatal hernia IBS (irritable bowel syndrome) Pure hypercholesterolemia 03/07/2020 PVD (peripheral vascular disease) ([facility]) Stroke ([facility]) Past Surgical History: Past Surgical [...] Resource Strain: Low Risk (06/20/2024) Received from [facility] Overall Financial Resource Strain (CARDIA) Difficulty of Paying Living Expenses: Not very hard Food Insecurity: No Food Insecurity (06/20/2024) Received from [facility] Hunger Vital Sign Worried About Running Out of Food in the Last Year: Never true Ran Out of Food in the Last Year: Never true Transportation Needs: No Transportation Needs (07/02/2024) Received from [facility] SDAL Transportation Source Has lack of transportation kept [...] Stress Concern Present (06/19/2024) Received from [facility] [place] of Occupational Health - Occupational Stress Questionnaire Feeling of Stress : Not at all Social Connections: Moderately Isolated (06/20/2024) Received from [facility] Social Connection and Isolation Panel [NHANES] Frequency of Communication with Friends and Family: More than three times a week Frequency of Social Gatherings with Friends and Family: Once a week Attends Synagogue Services: More than 4 times per year Active Member of Clubs or Organizations: No Attends Club or Organization Meetings: Never Marital Status: Intimate Partner Violence: Not At Risk (06/19/2024) Received from [facility] Domestic Abuse Assessment Do you feel safe in your relationships at home?: Yes Physical Abuse: Denies [facility] Domestic Abuse - Type of Abuse: Not on file [facility] Domestic Abuse - Time Frame: Not on file [facility] Abuse - Signs and Symptoms: Not on file Verbal Abuse: Denies [facility] Domestic Abuse - Reported To: Not on file Housing Stability: Low Risk (06/20/2024) Received from [facility] Housing Stability Vital Sign Unable to [...] the evening. ergocalciferol (Vitamin D2) 1.25 MG (52118 UT) capsule Take 1.25 mg by mouth [...] 5 MG tablet Take as directed by [facility] Anticoagulation Clinic (90 tablets = [...] 07/05/2024 [facility]EL [facility] 1940 [id number] Exam Date/Time: 07/05/2024 04:36 Procedure: CT HEAD [...] 07/05/2024 [facility] 1940 [id number] Exam Date/Time: 07/05/2024 04:36 Procedure: CT HEAD [...] 07/05/2024 Patient Name: MEL POP : 1940 [facility]#: [id number] Exam Date/Time: 07/05/2024 04:36 Procedure: CT PERFUSION [...] meter Result Date: 07/05/2024 Performed by: [facility], [address] [place] [address] CLIA ID: [id number] Assessment / Plan Discussed management with the [...] Hospitalist Medicine [employer] Dictated using Aquamarine [employer] Version 2.4 Proof read however unrecognized voice recognition errors may have occurred documented in this encounter [facility] 07-05-2024 Emergency department Note Provider notified of patient request for pain meds. [facility] 07-05-2024 Consult note Associated Order (s): IP [...] be discontinued after [address] [facility] 07-05-2024 Consult note Associated Order (s): Inpatient consult to Endovascular Neurology--[facility] Inpatient consult to Endovascular Neurology--[facility] Consult performed by: Helga Naik APRN - STRETCHING MACHINE TENDER FRAME Consult ordered by: Wm Nunes DO Reason [...] COPD (chronic obstructive pulmonary disease) ([facility]), DVT (deep venous thrombosis) ([facility]), Essential hypertension (03/07/2020), GERD (gastroesophageal reflux disease), Hiatal hernia, IBS (irritable bowel syndrome), Pure hypercholesterolemia (03/07/2020), PVD (peripheral vascular disease) ([facility]), and Stroke ([facility]). She has no past medical history of Cancer ([facility]/HCC) ([facility]), Cerebral artery occlusion with cerebral infarction ([facility]), CHF (congestive heart failure) ([facility]), Diabetes mellitus ([facility]), Hemodialysis patient ([facility]) ([facility]), blood clots, or MDRO (multiple [...] ., . Personal review of: Imaging,Labs,Old Records},.},. [facility] Phone: 07-05-[address] Carlson at bedside [facility] 07-05-2024 Emergency department Note Patient is returning back to room 32 at this time with Jose, Medic. [facility] 07-05-2024 Emergency department Note Pt currently at eye clinic with RADHA Hinkle for emergent eye laser procedure. [facility] 07-05-2024 Note Pt currently at eye clinic with RADHA Hinkle for emergent eye laser procedure. [facility] 07-05-2024 Emergency department Note Pt emergently going to eye clinic. Pt being transported in wheelchair with trauma float RADHA Hinkle and Maritza FRAGA Pt being transported on zoll monitor and acls kit. [facility] 07-05-2024 Emergency department Note Ophthalmology at bedside [facility] 07-05-2024 Emergency department Note Report to Maritza FRAGA [facility] 07-05-2024 Consult note Associated Order (s): IP CONSULT TO STROKE TEAM STROKE TEAM NOTE Patient Name: Mel Pop Patient : 1940 Acct: [id number] Date of Admission: 07/05/2024 Room/Bed: 60/60 PCP: [...] (HCC) DVT (deep venous thrombosis) ([facility]) Essential hypertension 03/07/2020 GERD (gastroesophageal reflux disease) Hiatal hernia IBS (irritable bowel syndrome) Pure hypercholesterolemia 03/07/2020 PVD (peripheral vascular disease) ([facility]) Stroke (HCC) Past Surgical History: [...] Historical Provider, ergocalciferol (Vitamin D2) 1.25 MG (24471 UT) capsule Take 1.25 mg by mouth [...] 5 MG tablet Take as directed by [facility] Anticoagulation Clinic (90 tablets = [...] mL, 5-40 mL, IntraVENous, PRN, Wm Mudrakola, Current Outpatient Medications: albuterol 108 (90 Base) [...] , Rfl: ergocalciferol (Vitamin D2) 1.25 MG (99331 UT) capsule, Take 1.25 mg by mouth [...] 5 MG tablet, Take as directed by [facility] Anticoagulation Clinic (90 tablets = [...] motor function: 0=Normal Total: 2 Pre-admission Modified [place] Score: 1 __ 0 No symptoms at [...] 4:46 AM EST. Report Dictated on Workstation: [employer] Electronically Signed By: Cirilo Ray DR Electronically [...] 4:46 AM EST. Report Dictated on Workstation: [employer] Electronically Signed By: Cirilo Ray DR Electronically [...] to be involved in this patient's care. [facility] Phone: 07-05-2024 Physician Emergency department Note Emergency Department Encounter Location: [facility] EMERGENCY DEPT Patient: Mel Pop [...] 423 ms QTC Interval 418 ms P [place] 0 degrees QRS [place] 37 degrees T Wave [place] 29 degrees UT Interval 0 ms Troponin, High Sensitivity, Serial, [...] EST Final ED Course and MDM: Mel Serna Jose Alberto is a 83 y.o. whose care was [...] IV. I discussed with Dr. Peres from [facility] hospitalist service who accepted the admit. Medications [...] Given 07/05/24 0517) I am not the strainer cleaner of record. Dr. Nunes is the strainer cleaner of record. Final Impression 1. Vision loss of right eye 2. Acute intractable headache, unspecified headache type DISPOSITION Observation 07/05/2024 01:21:52 PM (Please note that portions of this note may have been completed with a voice recognition program. Efforts were made to edit the dictations but occasionally words are mis-transcribed.) Jhonatan Hernandez MD [employer] Jhonatan Hernandez MD 07/05/[address] [facility] 06-19-2024 Note HNO ID: [id number] Author: JOSE GONZALEZ [facility] Service: Pharmacy Author Type: Pharmacist [...] with neuroendovascular for ICA aneurysm Jose Gonzalez [facility] Pager: Nora/Hailey cervantes 06/19/2024 1:31 [...] ELLIPTA 100-62.5-25 mcg inhalation powder Generic drug: vpbvpmscmsw-stpnqbiap-fcbewdjz VITAMIN C 500 mg tablet Generic drug: [...] as: COUMADIN zinc oxide 20 % ointment [facility] 06-19-2024 Note HNO ID: [id number] Author: ROSLYN ROSE RN Service: Care Management Author Type: Registered Nurse Type: Care Mgt Progress Note Filed: 06/19/2024 13:11 Note Text: CARE MANAGEMENT DISCHARGE NOTE SERVICE DATE: June 19, 2024 SERVICE TIME: 1:10 PM Admission Date: 06/10/2024 LOS: 8 days Discharge Arrangement Discharge Arrangement: Acute Rehabilitation Facility Services Arranged Provider Name: [facility] Caregiver Assessment Caregiver is ready, willing and able to meet the patient's needs as recommended by the inter-professional team: Yes Name of Caregiver: Taylor Muir Transportation Arrangements Transportation Arrangements: Ambulance Transportation Agency and Phone #:: [facility] ( [facility] ) [phone] / [phone] Date of Trip: 06/19/24 Time of Trip: 1800 Type of Service: BLS Non-emergency Records Analyst Location: [facility] Destination: [facility] Financial Care Management Responsibility: None Handoff Communication: Handoff to: Specialty Auto Air Conditioning Apprentice Specialty Auto Air Conditioning Apprentice Name/Phone: [facility] Additional Information: Patient has insurance precert and is discharging to [facility] today via [facility] cot at 6:00 PM. Spoke with patient at bedside and son José Miguel via phone who are aware and agreeable. Transfer envelope with chart. Care team aware via [employer] chat. Discharge Information Row Name ED to Hosp-Admission (Current) from 06/10/2024 in [place] [address] NEURO/CARD Rehab Facility Agency [facility] SIGNATURE: Roslyn Rose RN PATIENT NAME: Mel Castillo DATE: June 19, 2024 TIME: 1:10 PM CONTACT #: [phone] [facility] 06-19-2024 Note HNO ID: [id number] Author: DON EDWARDS DO Service: Hospital Medicine Author Type: Physician Type: Progress Notes Filed: 06/19/2024 12:53 Note Text: DEPARTMENT OF HOSPITAL MEDICINE PROGRESS NOTE SERVICE DATE: 06/19/2024 SERVICE TIME: 10:10 AM Hospital Medicine/Primary Attending: Don Edwards DO NIGHT AND WEEKEND COVERAGE: [place] COVERAGE: From 7am - 7pm, please call [phone] After 7pm, please call cross cover pager #[phone] Subjective INTERVAL HPI: Pt seen and examined. [...] Right Forearm 22 Gauge -- days Peripheral 06/12/247 [facility] Short Right Forearm 20 Gauge 7 days Reviewed lines and needs to be continued: REASONS: Difficulty in obtaining/maintaining access DATA: Diagnostic tests reviewed for today's visit: Most recent labs and imaging results. 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 Will need to follow up with neurology [...] -- 06/11/24 0730 vte current anticoag therapy ([place] 06/11/24 0730 activity - mobilize patient ([place]) VTE Prophylaxis: VTE prophylaxis appropriate Disposition: Acute Rehab Plan of care discussed with: Provider, RN, Patient SIGNATURE: Don Edwards DO PATIENT NAME: Mel Castillo DATE: June 19, 2024 TIME: 10:10 AM etx [id number] [facility] 06-18-2024 Note HNO ID: [id number] Author: ANABEL VEGA ? Service: Care Management Author Type: ? Type: Care Mgt Progress Note Filed: 06/18/2024 17:18 Note Text: [facility] PRECERT NOTE [employer] MEDICARE PPO approved Inpatient Rehab Facility for [facility] Pati[facility]. Precert approved for dates: - 06/26/2024. For any additional questions regarding approvals, transport or care management needs, please contact the CM assigned to this patient in the Treatment Team. SIGNATURE: Anabel Vega DATE: June 18, 2024 TIME: 5:17 PM [facility] 06-18-2024 Note HNO ID: [id number] Author: MARK MINOR DO Service: Hospital Medicine Author Type: Physician Type: Progress Notes Filed: 06/18/2024 16:17 Note Text: DEPARTMENT OF HOSPITAL MEDICINE PROGRESS NOTE SERVICE DATE: 06/18/2024 SERVICE TIME: 4:06 PM Hospital Medicine/Primary Attending: Mark Minor DO NIGHT AND WEEKEND COVERAGE: After 7pm please page [phone] SUBJECTIVE: Patient seen examined at bedside. No [...] now event with subtherapeutic coumadin. [facility] Will need to follow up with neurology [...] Yes) Chronic atrial (more content not included)... [facility] 06-18-2024 Note HNO ID: [id number] Author: ROSLYN ROSE RN Service: Care Management Author Type: Registered Nurse Type: Care Mgt Progress Note Filed: 06/18/2024 12:32 Note Text: CARE MANAGEMENT PROGRESS NOTE SERVICE DATE: 06/18/2024 SERVICE TIME: 9:01 AM LOS: 7 days Chart reviewed. Insurance precert is pending for [facility] Rehab. Will need precert and cot transport. CM to follow for transitional care planning. ADDENDUM at 10:20 AM- Spoke with patient at bedside and provided update on pending precert. Received message from [facility] that insurance is requesting updated PT/OT evals and notified therapy. SIGNATURE: Roslyn Rose RN PATIENT NAME: Mel Castillo DATE: June 18, 2024 TIME: 9:01 AM PAGER/CONTACT #: [phone] [facility] 06-17-2024 Note HNO ID: [id number] Author: DON EDWARDS DO Service: Hospital Medicine Author Type: Physician Type: Progress Notes Filed: 06/17/2024 13:52 Note Text: DEPARTMENT OF HOSPITAL MEDICINE PROGRESS NOTE SERVICE DATE: 06/17/2024 SERVICE TIME: 11:15 AM Hospital Medicine/Primary Attending: Don Edwards DO NIGHT AND WEEKEND COVERAGE: [place] COVERAGE: From 7am - 7pm, please call [phone] After 7pm, please call cross cover pager #[phone] Subjective INTERVAL HPI: Pt seen and examined. [...] 22 Gauge -- days Peripheral 06/12/24 0427 [facility] Short Right Forearm 20 Gauge 5 days [...] eliquis. She was seen by therapy and long term facility was recommended. 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 Will need to follow up with neurology [...] -- 06/11/24 0730 vte current anticoag therapy ([place]) 06/11/24 0730 activity - mobilize patient ([place]) VTE Prophylaxis: VTE prophylaxis appropriate Disposition: Acute Rehab Plan of care discussed with: Provider, RN, Patient SIGNATURE: Don Edwards DO PATIENT NAME: Mel Castillo DATE: June 17, 2024 TIME: 11:15 AM etx [id number] [facility] 06-16-2024 Note HNO ID: [id number] Author: DON EDWARDS DO Service: Hospital Medicine Author Type: Physician Type: Progress Notes Filed: 06/16/2024 13:06 Note Text: DEPARTMENT OF HOSPITAL MEDICINE PROGRESS NOTE SERVICE DATE: 06/16/2024 SERVICE TIME: 11:00 AM Hospital Medicine/Primary Attending: Don Edwards DO NIGHT AND WEEKEND COVERAGE: [place] COVERAGE: From 7am - 7pm, please call [phone] After 7pm, please call cross cover pager #[phone] Subjective INTERVAL HPI: Pt seen and examined. [...] 22 Gauge -- days Peripheral 06/12/24 0427 [facility] Short Right Forearm 20 Gauge 4 days Drain Duration Indwelling Urinary Catheter 06/11/24 1535 [facility] 16 Fr 4 days Reviewed lines and needs to be continued: REASONS: Difficulty in obtaining/maintaining access DATA: Diagnostic tests reviewed for today's visit: Most recent labs and imaging results. 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 [facility] Will need to follow up with neurology [...] -- 06/11/24 0730 vte current anticoag therapy ([place]) 06/11/24 0730 activity - mobilize patient ([place]) VTE Prophylaxis: VTE prophylaxis appropriate Disposition: Acute Rehab Plan of care discussed with: Provider, RN, Patient SIGNATURE: Don Edwards DO PATIENT NAME: Mel Castillo DATE: June 16, 2024 TIME: 11:00 AM etx [id number] [facility] 06-15-2024 Note HNO ID: [id number] Author: ERA TELLES MD Service: Hospital Medicine [...] on oxygen [facility] able [facility] accept. Await precert Plan of care discussed with: Provider, RN, Patient. SIGNATURE: Era Telles MD PATIENT NAME: Mel Castillo DATE: June 15, 2024 TIME: 2:40 PM PAGER: [facility] 06-15-2024 Note HNO ID: [id number] Author: ISHAN ARIANA, MANAGER UNIVERSITY.STRETCHING MACHINE TENDER FRAME Service: Urology Author Type: Nurse Practitioner Type: Plan of Care Filed: 06/15/2024 12:16 Note Text: Urology Plan of Care Note RN reached out asking about a void trial today. Notes pt has bloody urine. Pt seen at bedside. Pt eating lunch. Vanessa urine in tubing at this time. Will place PRN irrigation orders if urine is bloody again. Page urology resident senior online marketing manager if urine is grade 4 or [...] Ariana Mercer APRN 06/15/2024 12:11 PM Page senior online marketing manager resident with questions [facility] 06-15-2024 Note HNO ID: [id number] Author: ROSLYN ROSE RN Service: Care Management [...] 15, 2024 TIME: 9:36 AM PAGER/CONTACT #: [phone] [facility] 06-14-2024 Note HNO ID: [id number] Author: JENNIFER FERNANDEZ RN Service: Nursing Author Type: Registered Nurse Type: Nursing Progress Note Filed: 06/14/2024 17:35 Note Text: 1610: paged urology for voiding trial awaiting response [facility] 06-14-2024 Note HNO ID: [id number] Author: ERA TELLES MD Service: Hospital Medicine [...] on oxygen [facility] able [facility]. Await precert Plan of care discussed with: Provider, RN, Patient. SIGNATURE: Era Telles MD PATIENT NAME: Mel Castillo DATE: June 14, 2024 TIME: 2:47 PM PAGER: [facility] 06-13-2024 Note HNO ID: [id number] Author: EDIE CASTAÑEDA MD Service: Hospital Medicine Author Type: Physician Type: Progress Notes Filed: 06/13/2024 14:18 Note Text: DEPARTMENT OF HOSPITAL MEDICINE Hospital Medicine/Primary Attending: Edie Castañeda MD NIGHT AND WEEKEND COVERAGE: After 7pm please page [phone] MEDICATIONS: Current Facility-Administered Medications Medication Dose Route [...] today's visit: Lab data: CBC: Recent Labs 06/13/2413606/12/2435006/11/24 13506/10/24 233 WBC 4.79 5.17 7.45 5.67 HB 10.2* 10.6* 11.5 11.4* HCT 33.1* 34.6* 37.6 37.5 PLT 287 314 329 330 MCV 86.0 85.6 87.0 86.2 RDWCV 15.5* 15.6* 15.6* 15.6* NEUTP -- 57.4 72.9 84.2 ABSNEUT -- 2.97 5.43 4.78 LYMPHP -- 31.9 16.9 10.8 MONOP -- 8.9 9.1 3.7 EODINP -- 1.0 0.3 0.2 COAG: Recent Labs 06/13/24 0825 06/13/2413606/12/24 1903 06/12/24 1156 06/12/24 0450 06/12/24 03506/11/24202106/11/24 1353 06/10/24 233 APTT 51.3* 89.0* 56.1* 79.0* 123.9* 117.3* 28.2 28.9 -- INR -- -- -- -- -- -- -- 1.2 1.3 BMP: Recent Labs 06/13/2413606/12/24 03506/10/24 2330 GLUC 95 109* 157* NA 136 137 136 K 3.8 4.0 4.3 CHLOR 101 101 101 CO2 ANION 11 13 12 BUN 16 12 14 CREAT 1.04* 1.02* 0.87 CHEM: Recent Labs 06/13/24 0137 06/12/24 0351 06/10/24 2330 ALB -- 3.6* 4.2 TPROT -- 6.4 7.1 CA 8.9 9.2 9.5 MG -- 2.3 -- HEPATIC: Recent Labs 06/12/24 0351 [...] septum. Patient sees Dr. Padilla at [facility]. Cardiology saw patient in hospital, recommended Lovenox at discharge for lifelong. 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 Continue heparin drip. Will transition to therapeutic lovenox tonight (discussed patel and affordability with patient, lin (more content not included)... [facility] 06-13-2024 Note HNO ID: [id number] Author: CARLYLE GUZMÁN RN Service: Care Management [...] 13, 2024 TIME: 12:54 PM PAGER/CONTACT #: [phone] [facility] 06-12-2024 Note HNO ID: [id number] Author: SHARONA MCDERMOTT MD Service: Hospital Medicine Author Type: Physician Type: Progress Notes Filed: 06/12/2024 17:08 Note Text: DEPARTMENT OF HOSPITAL MEDICINE Hospital Medicine/Primary Attending: Sharona Mcdermott MD NIGHT AND WEEKEND COVERAGE: After 7pm please page [phone] Saw patient at bedside with friend visiting. [...] 1.3 BMP: Recent Labs 06/12/24 0351 06/10/24 233 GLUC 109* 157* NA 137 136 [...] septum. Patient sees Dr. Padilla at [facility]. Cardiology saw patient in hospital, [...] COPD Smoker Not (more content not included)... [facility] 06-12-2024 Note HNO ID: [id number] Author: DEBORAH PEACE RN Service: Care Management Author Type: Registered Nurse Type: Care Mgt Progress Note Filed: 06/12/2024 16:10 Note Text: CARE MANAGEMENT PROGRESS NOTE SERVICE DATE: 06/12/2024 SERVICE TIME: 4:09 PM LOS: 1 day [place] Given: Yes Level of Care Discussed: Inpatient Rehab Facility Financial Disclosure Provided: Yes Provider List: Rehab Facility Provider list within the patient's requested geographic area shared with the patient/family: Yes within: 15 miles of [facility] code: 44610 Quality and resource use metrics shared with the patient that are relevant to the patient's goals of care and treatment preferences:: Yes Spoke with pt about pt/ot recs for acute rehab, pt agreeable to list , Taylor Patiño would be foc but pt would like to discuss acute rehab with her ; referral sent to [facility] SIGNATURE: Deborah Peace RN PATIENT NAME: Mel Castillo DATE: June 12, 2024 TIME: 4:09 PM PAGER/CONTACT #: [phone] [facility] 06-12-2024 Note HNO ID: [id number] Author: ANDREEA KING LSW Service: Care Management Author Type: Plastic Dolls Mold Filler Type: Care Mgt Progress Note Filed: 06/12/2024 [...] 12, 2024 TIME: 3:20 PM PAGER/CONTACT #: [phone] [facility] 06-11-2024 Note HNO ID: [id number] Author: CARLYLE GUZMÁN RN Service: Care Management [...] Home Advance Directives Current Advance Directive: None Electrical Maintenance Mechanic Attempted to Assist with AD Completion: Yes [...] General wellness, Be able to go home [place] Explained: [place] Given: No Reason Not Given: [...] family who 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 +PCP, +DME, +RX coverage, family to provide DC transportation. Will to continue to follow for transitional care planning. SIGNATURE: Carlyle Guzmán RN PATIENT NAME: Mel Castillo DATE: June 11, 2024 TIME: 3:41 PM CONTACT #: [phone] [facility] 06-11-2024 Note Spoke with Melany Evans's office and she stated that patient is scheduled in their office tomorrow, 06/12 for INR check. I faxed her out last progress note. I will inactivate patient from our service. [facility] 05-21-2024 History of Present illness Narrative INR reported on by Christin with [facility]. Christin can be reached at [phone] with questions. Images from the original note were not included. [facility] ([facility] Anticoagulation Clinic [address] [place] [address], [address], [place] [address] Subjective TYSON Choi (1940) had INR completed [...] History of Present illness Narrative Graciela from [facility] called in results. Images from the original note were not included. [facility] ([facility] Anticoagulation Clinic [address] [place] [address], [address], [place] [address] Megan Choi (1940) had INR completed by [...] positive findings Mel was instructed to notify [facility] of any unusual bruising or active/uncontrollable bleeding, medication changes within 24 hours, missed doses, dietary changes, illnesses or hospitalizations, and upcoming surgeries. Patient given verbal instructions. Patient expressed understanding utilizing the teach back method. Time spent 10 Minutes JOSE ANGEL Perez PharmD, BCPS documented in this encounter [facility] 05-01-2024 History of Present illness Narrative Tia- [facility]- [phone] Images from the original note were not included. [facility] Anticoagulation Management Service ([facility] Anticoagulation Clinic [address] [place] [address], [address] [place] [id number] Subjective HPI Mel (1940) had INR completed [...] 5 mg daily Next INR Check: 05/08/2024 [facility] Patient educated on the following: dietary/lifestyle [...] requested refill on warfarin 5mg. Sent to [facility]. Receipt confirmed by pharmacy. [facility] 04-27-2024 Miscellaneous Notes Pt requested refill on warfarin 5mg. Sent to [facility]. Receipt confirmed by pharmacy. documented in [...] any significant pain. She is following with [facility] clinic for Warfarin, switched from [...] tablet (5mg) on 04/15 Follow up with [facility] pharmacy for further dosing 04/13/24 [...] min Stress: No Stress Concern Present (04/04/2024) [place] Citizen [place] [employer] Occupational Health - Occupational Stress Questionnaire Feeling of Stress : Not at all Social Connections: Moderately Isolated (04/04/2024) Social Connection and Isolation Panel [NHANES] Frequency of Communication with Friends and Family: More than three times a week Frequency of Social Gatherings with Friends and Family: More than three times a week Attends Synagogue Services: 1 to 4 times per year [...] Primary PAD (peripheral artery disease) ([facility]) Plan: S/p right venous thrombectomy -Recovering well -Recommend continuing warfarin per [facility] clinic -Continue to elevate as [...] History of Present illness Narrative Graciela with [facility] reports INR on Graciela can be reached at [phone] with any questions. Images from the original note were not included. [facility] Anticoagulation Management Service ([facility]) Anticoagulation Clinic [address] [place] [address], [address] [place] [address] Megan Choi (1940) had INR completed by [...] on: 04/16/2024 07:01 AM Modules accepted: Orders [facility] 04-14-2024 Note Addended by: HARMONY GREY on: 04/16/2024 08:41 AM Modules accepted: Orders [facility] 04-13-2024 Nurse Note AVS explained. Discharged [...] the patient at their request from the [facility] regarding her established home care. Patient was wondering what services were being provided and what expectations to have for [facility]. I explained her current ordered services and she stated she understood. Patient then asked if she could have meals delivered. I explained I would reach out to her social economist here at the hospital for further guidance on resources when she gets home. Secure chat sent to KEESHA Basilio regarding this. [facility] 04-13-2024 Note Formatting of this n ote might be different from the original. Phone conversation with the patient at their request from the [facility] regarding her established home care. Patient was wondering what services were being provided and what expectations to have for HHC. I explained her current ordered services and she stated she understood. Patient then asked if she could have meals delivered. I explained I would reach out to her social economist here at the hospital for further guidance on resources when she gets home. Secure chat sent to KEESHA Basilio regarding this. [facility] 04-13-2024 Miscellaneous Notes Phone conversation with the patient at their request from the [facility] regarding her established home care. Patient was wondering what services were being provided and what expectations to have for HHC. I explained her current ordered services and she stated she understood. Patient then asked if she could have meals delivered. I explained I would reach out to her social economist here at the hospital for further guidance on resources when she gets home. Secure chat sent to KEESHA Basilio regarding this. Images from the original note were not included. Care Management Progress Note INR 2.3 today. Hep drip continued, plan to DC to [facility] today. Plan to have PT seen patient today per her request. Patient is active with [facility]. Await treatment plan and clinical progress. manager child will continue to follow for transitional care [...] vasc consult" 04/06/2024 Bernie Cutler APRN - STRETCHING MACHINE TENDER FRAME 04/04/2024 4:04 AM 04/06/2024 Bernie Cutler APRN - STRETCHING MACHINE TENDER FRAME 04/03/2024 11:17 PM Length of Stay (Days): [...] oral when appropriate. Pt active with [facility]- will continue services at discharge. Await treatment plan and clinical progress. manager child will continue to follow for transitional care needs for discharge planning. Discharge Milestones and Delays Expected date/time: 04/13/2024 Expected discharge disposition: Home Health Services Discharge Milestones Place discharge order Complete med reconciliation Case mgmt discharge readiness Clinical Stability Diagnostic Workup System Specialist Recommendations Facility Choice Selection Imaging Results PT [...] Await treatment plan and clinical progress. manager child will continue to follow for transitional care [...] vasc consult" 04/06/2024 Bernie Cutler APRN - STRETCHING MACHINE TENDER FRAME 04/04/2024 4:04 AM 04/06/2024 Bernie Cutler APRN - STRETCHING MACHINE TENDER FRAME 04/03/2024 11:17 PM Length of Stay (Days): [...] Await treatment plan and clinical progress. manager child will continue to follow for transitional care needs for discharge planning. Discharge Milestones and Delays Expected date/time: 04/11/2024 Expected discharge disposition: Home or Self Care Discharge Milestones Place discharge order Complete med reconciliation Case mgmt discharge readiness Clinical Stability Diagnostic Workup System Specialist Recommendations Facility Choice Selection Imaging Results Patient [...] 4:04 AM 04/06/2024 Bernie Cutler APRN - STRETCHING MACHINE TENDER FRAME 04/03/2024 11:17 PM Length of Stay (Days): 7 GMLOS: 4 Images from the original note were not included. Care Management Progress Note Remains on heparin gtt while transitioning to coumadin. Consult Hemology. Pt active with [facility]- will continue services at discharge. Await treatment plan and clinical progress. manager child will continue to follow for transitional care needs for discharge planning. Discharge Milestones and Delays Expected date/time: 04/10/2024 Expected discharge disposition: Home or Self Care Discharge Milestones Place discharge order Complete med reconciliation Case mgmt discharge readiness Clinical Stability Diagnostic Workup System Specialist Recommendations Facility Choice Selection Imaging Results Patient [...] 4:04 AM 04/06/2024 Bernie Cutler APRN - STRETCHING MACHINE TENDER FRAME 04/03/2024 11:17 PM Length of Stay (Days): [...] with completion of Health Care Power of Matcher Offbearer. One copy placed in patient chart, one copy sent to medical records and two copies given to patient. Requested by patient, while at bedside this SW spoke to patient's son via patients phone to explain that HCPOA was being completed by patient. Patients son José Miguel Castillo ([phone]) agreed to be this patients agent on [...] technique was used to place a 5 Malagasy sheath. A PrintLess Plansson wire was able to be advanced in the inferior vena cava without difficulty. The 5 Malagasy sheath was then upsized to a 16 Malagasy sheath and the penumbra flash suction thrombectomy device was prepared per keno writer / runner's instructions. The patient was also given 5000 units of heparin for systemic anticoagulation at this time. The Penumbra device was then inserted through the 16 Malagasy sheath and a suction thrombectomy was performed [...] device was removed as was the 16 Malagasy sheath and an 0 silk suture was [...] Blankenship MD Vascular Surgery Date: 04/06/2024 Location: [facility] OR Name: Mel Pop, : 1940, Diagnosis Pre-op Diagnosis * Right leg DVT (HCC) [I82.401] Post-op Diagnosis * Right leg DVT (HCC) [I82.401] Procedures RIGHT LOWER EXTREMITY VENOUS MECHANICAL THROMBECTOMY 08597 - UT PRQ TRANSLUMINAL MECHANICAL THROMBECTOMY VEIN Surgeons * Kristyn Blankenship - Primary Procedure Summary Anesthesia: General ASA: III Estimated Blood Loss: 300 mL Drains: * None in log * Staff: Splicing Supervisor: Negrita Elizabeth RN; Amira Burton RN Scrub [...] vasc consult" 04/06/2024 Bernie Cutler APRN - STRETCHING MACHINE TENDER FRAME 04/04/2024 4:04 AM 04/06/2024 SEBASTIAN Herrera CNP [...] Limits Permission given to speak with patient packaging sales representative/caregiver as indicated: Confirmation of Payer with patient/family: Yes Payer Name: human[employer] [place]: No Confirmation of Primary Care Physician: Confirmed [...] Home Health Services Care Services Provider Name: [facility] Dialysis Type: NA Durable Medical Equipment: [...] home alone and indep. Pt active with [facility]- liaison following for continued services. [...] is noted as yes - consider a FLORAL DEPARTMENT SPECIALIST evaluation once the patient returns home. START PATIENT REGISTRATION INFORMATION Order Information Order Signing Physician: Robert Vigil MD Service Ordered RN ?: Yes Service Ordered PT ?: Yes Service Ordered OT ?: No Service Ordered ST ?: No Service Ordered FLORAL DEPARTMENT SPECIALIST?:No Service Ordered FOUNDRY WORKER GENERAL?: No Following Physician: Jared Evans MD Following Physician Overseeing Physician: Jared Evans MD (Required for Residents only) Agreeable to Follow? Yes Date/Time of Call 04/04/24 11:36 AM, Spoke with: Patient is a DEB. Care Coordination Same Day SOC?: No Primary Care Physician: Jared Evans MD Primary Care Physician Primary Care Physician Address: [address] [place], [place] [id number] Visit Instructions: N/A Service Discharge Location Type: Home with Home Care Service Facility Name: N/A Service Floor Facility: N/A Service Room No: N/A Demographics Patient Last Name: Jose Alberto Patient First Name: Mel Language/Communication Barrier: none Service Address: [address] Service City: [place] Service ST: [place] Service ZIP: [address] Service Other phone numbers: Telephone Information: Emergency [...] Caregiver Phone Number: na Caregiver Notes: N/A [place]le-OwlTing ??? List No END PATIENT REGISTRATION INFORMATION Pt [...] intervention. Discharge Date: pending Referral Source-PACC: (Hospital/Unit): [facility] / N4-461/N4-461 B End PACC Note The patient is Moderately Stable - Low risk of patient condition declining or worsening The patient's goals for the shift include safety The clinical goals for the shift include therapeutic aptt Patient is currently active with [facility]. The patients current certification period will on 05/18/24. The patient is currently receiving PT services through the agency. Artificial Pearl Maker to continue to follow. ADVANCED CARE PLANNING Mel Pop : 1940 Primary Care Physician: Jared Evans MD The patient and/or family/surrogate voluntarily agreed to participate in ACP services. Patient s cognitive capacity: intact Code Status: [ ] [FULL CODE - Continue all advanced life support: CPR,intubation,invasive procedures] [X] [DNR-CCA - DO NOT do CPR, intubation] [_] [DNR-GRAVURE PRESS OPERATOR - Comfort care only] [_] DNR form [...] with patient and/or family/surrogate. Pratibha Avelar DO [facility] 04/04/2024, 5:40 AM The patient is Moderately [...] encounter [facility] 04-13-2024 Note [facility] course Narrative Discharge Summary Mel Pop : 1940 ADMIT DATE: 04/03/2024 DISCHARGE DATE: 04/13/2024 PRIMARY CARE PHYSICIAN: Jared Evans VISIT STATUS: Admission CODE STATUS: DNR-CCA DISCHARGE DIAGNOSES: Principal Problem: Peripheral arterial disease (HCC) Bilateral lower extremity DVTs RLE thrombectomy HOSPITAL COURSE: 83-year-old woman with history of A-fib on Eliquis, tobacco use, hypertension, hyperlipidemia, asthma, hiatal hernia, GERD [facility] with right leg pain, numbness, tingling causing difficulty ambulating. CTA of lower extremity showed severe atherosclerotic disease with bilateral superficial femoral artery occlusion and transferred to [facility]. She underwent venous thrombectomy with vascular surgery and was initiated on warfarin bridging with heparin. [facility] followed and managed bridging anticoagulation. Pt reported feeling improvement from day to day. Though she was concerned that being stuck in the hospital will debilitate her.Her INR was therapeutic on 04/13. [facility] recommended transition to Warfarin alternating 5mg/7.5mg dosing and close OP follow up for INR check. SIGNIFICANT DIAGNOSTIC STUDIES: BLE Duplex CONSULTANTS: Vascular surgery Pharmacy RECOMMENDED NEXT STEPS: Follow up with [facility] clinic and vascular DISCHARGE MEDICATIONS: Medication [...] tablet (5mg) on 04/15 Follow up with [facility] pharmacy for further dosing CONTINUE taking these medications albuterol 108 (90 Base) MCG/ACT inhaler ascorbic acid 500 MG tablet Commonly known as: Vitamin C lisinopril 5 MG tablet pantoprazole 40 MG EC tablet Commonly known as: ProtoNix Trelegy Ellipta 100-62.5-25 MCG/ACT aerosol powder Generic drug: Oziynvqymgy-Hgiguvrom-Jpdgef STOP taking these medications Eliquis 5 MG tablet Generic drug: apixaban Where to Get Your Medications These medications were sent to [facility] [address] [place], [place] [id number] Hours: Tuesday to Tuesday 10 am to 6 pm oxyCODONE 5 MG immediate release tablet warfarin 5 MG tablet DIET: Adult diet Regular ACTIVITY: No restriction. COMPLEXITY OF FOLLOW UP: [x] Moderate Complexity: follow up within 7-14 calendar days (83441) [] Severe Complexity: follow up within 7 calendar days (01053) FOLLOW UP TESTING, PENDING RESULTS OR REFERRALS AT TRANSITIONAL CARE VISIT: [] Yes [x] No PENDING STUDIES: none DISPOSITION: Home with Home Health Care FACILITY/HOME CARE AGENCY NAME: [facility] Follow up with Kristyn Blankenship MD [address] [place], [place] [id number] Schedule an appointment as soon as possible [...] [facility] Treatment Note Name/MRN: Mel Pop ([id number]) Date of : 1940 Age: 83 y.o. Room/Bed: [facility] B Discharge Recommendation: Home with Home health [...] 1045 Minutes 13 (Gait) Christin Gu PT [facility] Anticoagulation Management Service ([facility]) Inpatient Warfarin Consult HPI: Mel Pop is a 83 y.o. female admitted on 04/03/2024 for Peripheral arterial disease (HCC). Past Medical History: Diagnosis Date Asthma Essential hypertension 03/07/2020 GERD (gastroesophageal reflux disease) Hiatal hernia Pure hypercholesterolemia 03/07/2020 Patient is newly referred to the [facility] clinic for warfarin management. Pt [...] and adjust dose accordingly. 3. Will facilitate [facility] follow-up upon discharge. Patient is agreeable to [facility] follow up. If discharged today, recommend sending home with 5mg tablets with instructions to take 5mg Tuesday (if not already received in hospital), 7.5mg Tuesday, 5mg Tuesday, and will recheck INR Tuesday via home care. 4. Provided warfarin education. Marybeth Rahman RPh, PharmD [facility] Consult Service is available daily [phone] via [employer] Secure Chat. If no response, please page [phone]. Hospitalist Progress Note 04/13/2024 Subjective: Admit Date: 04/03/2024 PCP: Jared Evans MD Room#: N4-461/N4-461 B BRIEF HOSPITAL COURSE: 83-year-old woman with history of A-fib on Eliquis, tobacco use, hypertension, hyperlipidemia, asthma, hiatal hernia, GERD presented to [facility] with right leg pain, numbness, tingling causing difficulty ambulating. CTA of lower extremity showed severe atherosclerotic disease with bilateral superficial femoral artery occlusion and transferred to [facility]. She underwent venous thrombectomy with vascular surgery and was initiated on warfarin bridging with heparin. [facility] followed and managed bridging anticoagulation. Pt reported feeling improvement from day to day. Though she was concerned that being stuck in the hospital will debilitate her.Her INR was therapeutic on 04/13. [facility] recommended transition to Warfarin alternating 5mg/7.5mg [...] PLT 244 307 317 BMP: Recent Labs 04/11/242604/12/2451804/13/24358 NA 134* 135 135 K 4.0 3.9 [...] person, place, and time. Medications: Scheduled PRN Hbiouniskjm-Alwxuyacb-Saxqte, 1 puff, Inhalation, Daily influenza, 0.5 mL, [...] was pursued: -Heparin bridge to warfarin per [facility] recommendations - INR therapeutic on 04/13 - 5mg dose warfarin today, 7.5mg 04/14, 5mg 04/15 and follow up with [facility] on 04/16 for repeat INR -Resumed home [...] Date: 04/03/2024 PCP: Jared Evans MD Room#: N4-114/N4-077 B BRIEF HOSPITAL COURSE: 83-year-old woman with history of A-fib on Eliquis, tobacco use, hypertension, hyperlipidemia, asthma, hiatal hernia, GERD presented to [facility] 04/[facility] with right leg pain, numbness, tingling causing difficulty ambulating. CTA of lower extremity showed severe atherosclerotic disease with bilateral superficial femoral artery occlusion and transferred to [facility]. She underwent venous thrombectomy with vascular surgery and was initiated on warfarin bridging with heparin. [facility] followed and managed bridging anticoagulation. Pt [...] LABALBU PT/INR: Recent Labs 04/10/24 0601 04/11/24 00204/12/24 0519 PROTIME 17.7* 20.9* 20.3* INR 1.6* [...] person, place, and time. Medications: Scheduled PRN Uuigbzddktn-Gowliqsra-Yjvktv, 1 puff, Inhalation, Daily influenza, 0.5 mL, [...] pursued: -Continue heparin bridge to warfarin per [facility] recommendations - anticipate 1 more day of [...] Hospitalist Medicine [facility] Anticoagulation Management Service ([facility]) Inpatient Warfarin Consult HPI: Mel Pop is a 83 y.o. female admitted on 04/03/2024 for Peripheral arterial disease (HCC). Past Medical History: Diagnosis Date Asthma Essential hypertension 03/07/2020 GERD (gastroesophageal reflux disease) Hiatal hernia Pure hypercholesterolemia 03/07/2020 Patient is newly referred to the [facility] clinic for warfarin management. Pt was referred by Anthony K Mergy, MANAGER UNIVERSITY - STRETCHING MACHINE TENDER FRAME. Pt is on warfarin for DVT and [...] PharmD [facility] Consult Service is available daily [phone] via [employer] Secure [employer]. If no response, please page [phone]. Images from the original note were not included. 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 Goals and/or treatment plan was established in collaboration with patient/family/other representatives. Hospitalist Progress Note 04/11/2024 Subjective: Admit Date: 04/03/2024 PCP: Jared Evans MD Room#: N4461/N4-979 B BRIEF HOSPITAL COURSE: 83-year-old woman with history of A-fib on Eliquis, tobacco use, hypertension, hyperlipidemia, asthma, hiatal hernia, GERD [facility] with right leg pain, numbness, tingling causing difficulty ambulating. CTA of lower extremity showed severe atherosclerotic disease with bilateral superficial femoral artery occlusion and transferred to [facility]. She underwent venous thrombectomy with [...] 235 238 244 BMP: Recent Labs 04/09/24 01504/10/24 0601 04/11/24 0027 NA 136 136 134* [...] person, place, and time. Medications: Scheduled PRN Qczylvhfdgm-Krmmwsnkn-Zfmxne, 1 puff, Inhalation, Daily influenza, 0.5 mL, [...] Roldan MD Division of Hospitalist Medicine Acute [facility] Images from the original note were not included. 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[facility]) 06/16/2022 Cellulitis 05/18/2022 Nicotine use disorder 05/18/2022 Irritable bowel syndrome with diarrhea 03/07/2020 Microscopic hematuria 03/07/2020 Left retinal detachment 03/07/2020 Hyperglycemia 03/07/2020 Osteopenia of left femoral neck 03/07/2020 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 03/07/2020 Seasonal allergies 03/07/2020 Chronic renal insufficiency, stage III (moderate) ([facility]) 03/07/2020 Major depression, single episode, in complete remission ([facility]) 03/07/2020 Gastroesophageal reflux disease without esophagitis 03/07/2020 Essential hypertension 03/07/2020 Pure hypercholesterolemia 03/07/2020 Overweight 03/07/2020 Psoriasis 03/07/2020 History of cerebrovascular accident 03/07/2020 Atrial fibrillation ([facility]) 03/07/2020 Chronic obstructive pulmonary disease ([facility]) 03/07/2020 Finger osteomyelitis, right ([facility]) 03/06/2020 Medical Precautions: No active [...] Raw Score (No Stairs) : 19 [facility] Score: Walked 10 steps or more [...] of Care supervision is transferred to a [facility] Therapy Services Physical Therapist. Goals and/or treatment plan was established in collaboration with patient/family/other representatives. [facility] Anticoagulation Management Service ([facility]) Inpatient Warfarin Consult HPI: Mel Pop is a 83 y.o. female admitted on 04/03/2024 for Peripheral arterial disease (HCC). Past Medical History: Diagnosis Date Asthma Essential hypertension 03/07/2020 GERD (gastroesophageal reflux disease) Hiatal hernia Pure hypercholesterolemia 03/07/2020 Patient is newly referred to the [facility] clinic for warfarin management. Pt [...] PharmD [facility] Consult Service is available daily [phone] via [employer]. If no response, please page [phone]. Hospitalist Progress Note 04/10/2024 Subjective: Admit Date: 04/03/2024 PCP: Jared Evans MD Room#: N4461/N4461 B BRIEF HOSPITAL COURSE: 83-year-old woman with history of A-fib on Eliquis, tobacco use, hypertension, hyperlipidemia, asthma, hiatal hernia, GERD [facility] with right leg pain, numbness, tingling causing difficulty ambulating. CTA of lower extremity showed severe atherosclerotic disease with bilateral superficial femoral artery occlusion and transferred to [facility]. She underwent venous thrombectomy with [...] Medicine [facility] Nutrition update completed. Chart reviewed. Patient to be monitored and followed by the diet communication technician. FADI Farrar [facility] Anticoagulation Management Service ([facility]) Inpatient Warfarin Consult HPI: Mel Pop is a 83 y.o. female admitted on 04/03/2024 for Peripheral arterial disease (HCC). Past Medical History: Diagnosis Date Asthma Essential hypertension 03/07/2020 GERD (gastroesophageal reflux disease) Hiatal hernia Pure hypercholesterolemia 03/07/2020 Patient is newly referred to the [facility] clinic for warfarin management. Pt was referred by Anthony Yee APRN - STRETCHING MACHINE TENDER FRAME. Pt is on warfarin for DVT and [...] PharmD [facility] Consult Service is available daily [phone] via [employer] Secure Chat. If no response, please page [phone]. Hospitalist Progress Note 04/09/2024 Assessment/Plan: Data: (CAT1) [...] asthma, hiatal hernia, GERD who presented to [facility] 04/03 with right leg pain, numbness, tingling causing difficulty ambulating. CTA of LE, showing severe LE atherosclerotic disease with bilateral superficial femoral artery occlusion, and was transferred to [facility] for admission. Interval History: Mild [...] 202 223 235 BMP: Recent Labs 04/07/24 0251 04/08/24 0020 04/09/24 0153 NA 136 135 136 [...] for component: LABALBU PT/INR: Recent Labs 04/07/24 0251 04/08/24 0020 04/09/24 0153 PROTIME 11.1 11.2 13.8* [...] Hospitalist Medicine [facility] Anticoagulation Management Service ([facility]) Inpatient Warfarin Consult HPI: Mel Pop is a 83 y.o. female admitted on 04/03/2024 for Peripheral arterial disease (HCC). Past Medical History: Diagnosis Date Asthma Essential hypertension 03/07/2020 GERD (gastroesophageal reflux disease) Hiatal hernia Pure hypercholesterolemia 03/07/2020 Patient is newly referred to the [facility] clinic for warfarin management. Pt [...] PharmD [facility] Consult Service is available daily [phone] via [employer] Secure Chat. If no response, please page [phone]. Hospitalist Progress Note 04/08/2024 Assessment/Plan: Data: (CAT1) [...] Date: 04/03/2024 PCP: Jared Evans MD Room#: N4-061/N4-373 B Brief Hospital course: Patient is an 83-year-old female with history of A-fib on Eliquis, significant tobacco use, HTN, HLD, asthma, hiatal hernia, GERD who presented to [facility] 04/03 with right leg pain, numbness, tingling causing difficulty ambulating. CTA of LE, showing severe LE atherosclerotic disease with bilateral superficial femoral artery occlusion, and was transferred to [facility] for admission. Interval History: Pain [...] 223 BMP: Recent Labs 04/06/24 0711 04/07/24 02504/08/24 0020 NA 135 136 135 K 4.6 [...] LABALBU PT/INR: Recent Labs 04/05/24 2307 04/07/24 02504/08/24 0020 PROTIME 11.4 11.1 11.2 INR 1.0 [...] Hospitalist Medicine [facility] Anticoagulation Management Service ([facility]) Inpatient Warfarin Consult [...] PharmD GABRIELLA Consult Service is available daily [phone] via [employer]. If no response, please page [phone]. Hospitalist Progress Note 04/07/2024 Assessment/Plan: Data: (CAT1) [...] Anticipate DC pending clinical improvement and pain., System Specialist recommendations, Coumadin bridge with heparin Total time spent (which include face to face and non face to face encounters) : 36 minutes D/W ANDRA, RN Complexity: Acute illness with systemic symptoms [...] asthma, hiatal hernia, GERD who presented to [facility] 04/03 with right leg pain, numbness, tingling causing difficulty ambulating. CTA of LE, showing severe LE atherosclerotic disease with bilateral superficial femoral artery occlusion, and was transferred to [facility] for admission. Interval History: Pain [...] Hospitalist Medicine [facility] Anticoagulation Management Service ([facility]) Inpatient Warfarin Consult HPI: Mel Pop is a 83 y.o. female admitted on 04/03/2024 for Peripheral arterial disease (HCC). Past Medical History: Diagnosis Date Asthma Essential hypertension 03/07/2020 GERD (gastroesophageal reflux disease) Hiatal hernia Pure hypercholesterolemia 03/07/2020 Patient is newly referred to the [facility] clinic for warfarin management. Pt [...] Will determine if pt is agreeable to [facility] follow-up. 4. Will provide warfarin education. Michelle Lugo RPh, PharmD [facility] Consult Service is available daily [phone] via [employer] Secure Chat. If no response, please page [phone]. Department of General Surgery Daily Progress Note [...] George Sarah MD PGY5, General Surgery Pager #[phone] CDI Query Response: Acute thrombus within the [...] Anticipate DC pending clinical improvement and pain., System Specialist recommendations, Coumadin bridge with heparin Total time spent (which include face to face and non face to face encounters) : 36 minutes D/W ANDRA, RN Complexity: Acute illness with systemic symptoms [...] asthma, hiatal hernia, GERD who presented to [facility] 04/03 with right leg pain, numbness, tingling causing difficulty ambulating. CTA of LE, showing severe LE atherosclerotic disease with bilateral superficial femoral artery occlusion, and was transferred to [facility] for admission. Interval History: Has [...] questions have been answered to their satisfaction. [facility] Anticoagulation Management Service ([facility]) Inpatient Warfarin Consult HPI: Mel Pop is a 83 y.o. female admitted on 04/03/2024 for Peripheral arterial disease (HCC). Past Medical History: Diagnosis Date Asthma Essential hypertension 03/07/2020 GERD (gastroesophageal reflux disease) Hiatal hernia Pure hypercholesterolemia 03/07/2020 Patient is newly referred to the [facility] clinic for warfarin management. Pt was referred by Anthony Yee APRN - STRETCHING MACHINE TENDER FRAME. Pt is on warfarin for DVT and [...] PharmD [facility]LLA Consult Service is available daily [phone] via [employer] Secure Chat. If no response, please page [phone]. Hospitalist Progress Note 04/05/2024 Assessment/Plan: Data: (CAT1) [...] Discharge Disposition: Anticipate DC pending clinical improvement, specialty sales consultant recommendations Total time spent (which include [...] asthma, hiatal hernia, GERD who presented to [facility] 04/03 with right leg pain, numbness, tingling causing difficulty ambulating. CTA of LE, showing severe LE atherosclerotic disease with bilateral superficial femoral artery occlusion, and was transferred to [facility] for admission. Interval History: Had [...] be monitored and followed by the diet communication technician. FADI Harmon [facility] Anticoagulation Management Service ([facility]) Inpatient Warfarin Consult HPI: Mel Pop is a 83 y.o. female admitted on 04/03/2024 for Peripheral arterial disease (HCC). Past Medical History: Diagnosis Date Asthma Essential hypertension 03/07/2020 GERD (gastroesophageal reflux disease) Hiatal hernia Pure hypercholesterolemia 03/07/2020 Patient is newly referred to the [facility] clinic for warfarin management. Pt [...] Will determine if pt is agreeable to [facility] follow-up 4. Will provide warfarin education. Thank you for this consult Patty Duggan RPh, PharmD [facility] Consult Service is available daily [phone] via [employer] [facility] [employer]. If no response, please page [phone]. Department of General Surgery Daily Progress Note [...] Naik MD General Surgery PGY-4 Pager # [phone] Associated attestation - Kristyn Blankenship MD - [...] NPO at midnight for possible thrombectomy tomorrow. [facility] Anticoagulation Management Service ([facility]) Inpatient Warfarin Consult HPI: Mel Pop is a 83 y.o. female admitted on 04/03/2024 for Peripheral arterial disease (HCC). Past Medical History: Diagnosis Date Asthma Essential hypertension 03/07/2020 GERD (gastroesophageal reflux disease) Hiatal hernia Pure hypercholesterolemia 03/07/2020 Patient is newly referred to the [facility] clinic for warfarin management. Pt [...] for this consult Marybeth Rahman RPh, PharmD [facility] Consult Service is available daily [phone] via [employer]. If no response, please page [phone]. Nonbillable encounter. Patient was seen by provider earlier today Patient is an 83-year-old female with history of A-fib on Eliquis, significant tobacco use, HTN, HLD, asthma, hiatal hernia, GERD who presented to [facility] 04/03 with right leg pain, numbness, tingling causing difficulty ambulating. CTA of LE, showing severe LE atherosclerotic disease with bilateral superficial femoral artery occlusion, and was transferred to [facility] for admission. Severe bilateral LE [...] per her request. Patient is active with [facility]. Await treatment plan and clinical progress. manager child will continue to follow for transitional care [...] Await treatment plan and clinical progress. manager child will continue to follow for transitional care [...] Length of Stay (Days): 10 GMLOS: 4 [facility] 04-13-2024 Plan of care note The [...] plan, medications, and discharge instructions Outcome: Progressing [facility] 04-12-2024 Plan of care note Problem: [...] risk of patient condition declining or worsening [facility] 04-12-2024 Note Formatting of this n ote is different from the original. Images from the original note were not included. Care Management Progress Note Patent currently still on Hep Drip, INR 1.9. Will convert to oral when appropriate. Pt active with [facility]- will continue services at discharge. Await treatment plan and clinical progress. manager child will continue to follow for transitional care needs for discharge planning. Discharge Milestones and Delays Expected date/time: 04/13/2024 Expected discharge disposition: Home Health Services Discharge Milestones Place discharge order Complete med reconciliation Case mgmt discharge readiness Clinical Stability Diagnostic Workup System Specialist Recommendations Facility Choice Selection Imaging Results PT [...] to oral when appropriate. Pt active with [facility]- will continue services at discharge. Await treatment plan and clinical progress. manager child will continue to follow for transitional care needs for discharge planning. Discharge Milestones and Delays Expected date/time: 04/13/2024 Expected discharge disposition: Home Health Services Discharge Milestones Place discharge order Complete med reconciliation Case mgmt discharge readiness Clinical Stability Diagnostic Workup System Specialist Recommendations Facility Choice Selection Imaging Results PT [...] vasc consult" 04/06/2024 Bernie Cutler APRN - STRETCHING MACHINE TENDER FRAME 04/04/2024 4:04 AM 04/06/2024 SEBASTIAN Herrera CNP 04/03/2024 11:17 PM Length of Stay (Days): 9 GMLOS: 4 [facility] 04-12-2024 Plan of care note The [...] to oral when appropriate. Pt active with [facility]- will continue services at discharge. Await treatment plan and clinical progress. manager child will continue to follow for transitional care [...] to oral when appropriate. Pt active with [facility]- will continue services at discharge. Await treatment plan and clinical progress. manager child will continue to follow for transitional care [...] GMLOS: 4 [facility] 04-11-2024 Plan of care note Problem: [...] risk of patient condition declining or worsening [facility] 04-11-2024 Plan of care note The [...] level or baseline comfort level Outcome: Progressing [facility] 04-10-2024 Plan of care note Problem: [...] to oral when appropriate. Pt active with [facility]- will continue services at discharge. Await treatment plan and clinical progress. manager child will continue to follow for transitional care needs for discharge planning. Discharge Milestones and Delays Expected date/time: 04/11/2024 Expected discharge disposition: Home or Self Care Discharge Milestones Place discharge order Complete med reconciliation Case mgmt discharge readiness Clinical Stability Diagnostic Workup System Specialist Recommendations Facility Choice Selection Imaging Results Patient [...] to oral when appropriate. Pt active with [facility]- will continue services at discharge. Await treatment plan and clinical progress. manager child will continue to follow for transitional care needs for discharge planning. Discharge Milestones and Delays Expected date/time: 04/11/2024 Expected discharge disposition: Home or Self Care Discharge Milestones Place discharge order Complete med reconciliation Case mgmt discharge readiness Clinical Stability Diagnostic Workup System Specialist Recommendations Facility Choice Selection Imaging Results Patient [...] vasc consult" 04/06/2024 Bernie Cutler APRN - STRETCHING MACHINE TENDER FRAME 04/04/2024 4:04 AM 04/06/2024 Bernie Cutler APRN - STRETCHING MACHINE TENDER FRAME 04/03/2024 11:17 PM Length of Stay (Days): 7 GMLOS: 4 [facility] 04-09-2024 Note Formatting of this n ote is different from the original. Images from the original note were not included. Care Management Progress Note Remains on heparin gtt while transitioning to coumadin. Consult Hemology. [facility]- will continue services at discharge. Await treatment plan and clinical progress. manager child will continue to follow for transitional care needs for discharge planning. Discharge Milestones and Delays Expected date/time: 04/10/2024 Expected discharge disposition: Home or Self Care Discharge Milestones Place discharge order Complete med reconciliation Case mgmt discharge readiness Clinical Stability Diagnostic Workup System Specialist Recommendations Facility Choice Selection Imaging Results Patient [...] vasc consult" 04/06/2024 Bernie Cutler APRN - STRETCHING MACHINE TENDER FRAME 04/04/2024 4:04 AM 04/06/2024 Bernie Cutler APRN - STRETCHING MACHINE TENDER FRAME 04/03/2024 11:17 PM Length of Stay (Days): 6 GMLOS: 3.1 [facility] 04-09-2024 Note Formatting of this n ote is different from the original. Images from the original note were not included. Care Management Progress Note Remains on heparin gtt while transitioning to coumadin. Consult Hemology. Pt active with [facility]- will continue services at discharge. Await treatment plan and clinical progress. manager child will continue to follow for transitional care needs for discharge planning. Discharge Milestones and Delays Expected date/time: 04/10/2024 Expected discharge disposition: Home or Self Care Discharge Milestones Place discharge order Complete med reconciliation Case mgmt discharge readiness Clinical Stability Diagnostic Workup System Specialist Recommendations Facility Choice Selection Imaging Results Patient [...] vasc consult" 04/06/2024 Bernie Cutler APRN - STRETCHING MACHINE TENDER FRAME 04/04/2024 4:04 AM 04/06/2024 Bernie Cutler APRN - STRETCHING MACHINE TENDER FRAME 04/03/2024 11:17 PM Length of Stay (Days): 6 GMLOS: 3.1 T [facility] 04-08-2024 Plan of care note Progressing T [facility] 04-07-2024 Plan of care note The [...] baseline comfort level Outcome: Progressing . T [facility] 04-07-2024 Hospital Discharge instructions Lolita Sarah [...] Rahman RPh - 04/13/2024 1:07 PM EDT [facility] Clinic will monitor your warfarin after you go home. [facility] Phone number: [phone]. Home care nurse will check your INR Monday 04/16 and [facility] will contact you with warfarin [...] dolens of left lower extremity ([facility]) Finger osteomyelitis, right (HCC) Irritable bowel syndrome with diarrhea Microscopic hematuria Left retinal detachment Hyperglycemia Osteopenia of left femoral neck senior care current use of anticoagulant therapy Seasonal allergies Chronic renal insufficiency, stage III (moderate) (HCC) Major depression, single episode, in complete remission ([facility]) Gastroesophageal reflux disease without esophagitis Essential hypertension [...] 8 oz) Mental Status: {HECTOR Patient Mental Status:75312} IV Access: {HECTOR IV Access:50114} Nursing Mobility/ADLs: Walking {MAHESH ADL:::"Independent"} Transfer {MAHESH ADL:::"Independent"} Bathing {MAHESH ADL:::"Independent"} Dressing {MAHESH ADL:::"Independent"} Toileting {MAHESH ADL:::"Independent"} Feeding {MAHESH ADL:::"Independent"} Recovery Agent {MAHESH ADL:::"Independent"} Med Delivery {yes/no:78178} Wound Care Documentation and Therapy: Elimination: Continence: Bowel: {yes/no:66548} Bladder: {yes/no:33565} Urinary Catheter: {HECTOR Urinary Catheter:54011} Colostomy/Ileostomy/Ileal Conduit: {YES / NO:} Date of Last BM: Intake/Output Summary (Last 24 hours) at 04/04/2024 1135 Last data filed at 04/03/20242056 Gross per 24 hour Intake 500 ml Output -- Net 500 ml I/O last 3 completed shifts: In: 500 (6.9 mL/kg) [IV Piggyback:500] Out: - (0 mL/kg) Weight: 72.3 kg Safety Concerns: {HECTOR Safety Concerns:15833} Impairments/Disabilities: {HECTOR Impairments/Disabilities:59759} Nutrition Therapy: Current Nutrition Therapy: {HECTOR Diet List:17158} Routes of Feeding: {routes of feedin} Liquids: {liquid consistency:03416} Daily Fluid Restriction: {daily fluid restriction:88774} Last Modified Barium Swallow with Video (Video Swallowing Test): {done not done:23357} Treatments at the Time of Hospital Discharge: Respiratory Treatments: Oxygen Therapy: {Therapy; copd oxygen:45405} Ventilator: {HECTOR Ventilator:56671} Rehab Therapies: {GEN THERAPY DISCIPLINE SCAL:5716090} Weight Bearing Status/Restrictions: {POD WEIGHT BEARIN} Other Medical Equipment (for information only, NOT a DME order): {Assistive Devices DME:79840} Other Treatments: Patient's personal belongings (please select all that are sent with patient): {HECTOR Patient Belongings:41072} RN SIGNATURE: {E-signature:45722} CASE MANAGEMENT/SOCIAL WORK SECTION Inpatient Status Date: Discharging to Facility/ Agency Name: [facility] Home Address: [address] [place] [address] Dialysis Facility (if applicable) Name: Address: Dialysis Schedule: Phone: Fax: Finish Molder/[employer] Filler signature: {E-signature:88274} PHYSICIAN SECTION Name: Mel Pop Prognosis: {Rehab Prognosis:92518} Condition at Discharge: {Patient Condition:48826} Rehab Potential (if transferring to Rehab): {Rehab Prognosis:31864} Recommended Labs or Other Treatments After Discharge: The individual is being admitted to a nursing facility directly from an [facility] or a unit of a [facility] that is not operated by or licensed by [facility] under section 5119.14 or 5160-3-15.1 5 The individual requires the level of services provided by a nursing facility for the condition for which he or she was treated in the hospital and, Physician Certification: I certify the above information and transfer of Mel Pop is necessary for the continuing treatment of the diagnosis listed and that she requires {HECTOR Level of Care:87992} for {greater less than:42379} 30 days. Update Admission H&P: {HECTOR Changes in H&P:82602} PHYSICIAN SIGNATURE: {E-signature:29272} documented in this encounter [facility] [...] while transitioning to coumadin. Pt active with [facility]- will continue services at discharge. Discharge [...] while transitioning to coumadin. Pt active with [facility]- will continue services at discharge. Discharge [...] vasc consult" 04/06/2024 Bernie Cutler APRN - STRETCHING MACHINE TENDER FRAME 04/04/2024 4:04 AM 04/06/2024 Bernie Cutler APRN [...] restart heparin GTT at 1215. Transport notified. [facility] 04-06-2024 Note Formatting of this n ote might be different from the original. Patient report called to 4N RN and denies any further questions. Patient resting comfortably and no signs of distress. Per resident patient to lay flat for 2 hours and restart heparin GTT at 1215. Transport notified. T [facility] 04-06-2024 Note Formatting of this n ote might be different from the original. SW assisted patient with completion of Health Care Power of Matcher Offbearer. One copy placed in patient chart, one copy sent to medical records and two copies given to patient. Requested by patient, while at bedside this SW spoke to patient's son via patients phone to explain that HCPOA was being completed by patient. Patients son José Miguel Castillo ([phone]) agreed to be this patients agent on the HCPOA and confirmed understanding. [facility] 04-06-2024 Note Formatting of this n ote might be different from the original. SW assisted patient with completion of Health Care Power of Matcher Offbearer. One copy placed in patient chart, one copy sent to medical records and two copies given to patient. Requested by patient, while at bedside this SW spoke to patient's son via patients phone to explain that HCPOA was being completed by patient. Patients son José Miguel Castillo ([phone]) agreed to be this patients agent on the HCPOA and confirmed understanding. [facility] 04-06-2024 Note Formatting of this n [...] technique was used to place a 5 Malagasy sheath. A Bentson wire was able to be advanced in the inferior vena cava without difficulty. The 5 Malagasy sheath was then upsized to a 16 Malagasy sheath and the penumbra flash suction thrombectomy device was prepared per keno writer / runner's instructions. The patient was also given 5000 units of heparin for systemic anticoagulation at this time. The Penumbra device was then inserted through the 16 Malagasy sheath and a suction thrombectomy was performed [...] device was removed as was the 16 Malagasy sheath and an 0 silk suture was [...] the case. Kristyn Blankenship MD Vascular Surgery [facility] 04-06-2024 Note Formatting of this n ote is different from the original. Date: 04/06/2024 Location: [facility] OR Name: Mel Pop, : 1940, Diagnosis Pre-op Diagnosis * Right leg DVT (HCC) [I82.401] Post-op Diagnosis * Right leg DVT (HCC) [I82.401] Procedures RIGHT LOWER EXTREMITY VENOUS MECHANICAL THROMBECTOMY 61967 - [place] PRQ TRANSLUMINAL MECHANICAL THROMBECTOMY VEIN Surgeons * Kristyn Blankenship - Primary Procedure Summary Anesthesia: General ASA: III Estimated Blood Loss: 300 mL Drains: * None in log * Staff: Splicing Supervisor: Negrita Elizabeth RN; Amira Burton RN Scrub [...] antibiotics are not indicated for this procedure. [facility] 04-06-2024 Note Formatting of this n [...] technique was used to place a 5 Malagasy sheath. A Bentson wire was able to be advanced in the inferior vena cava without difficulty. The 5 Malagasy sheath was then upsized to a 16 Malagasy sheath and the penumbra flash suction thrombectomy device was prepared per keno writer / runner's instructions. The patient was also given 5000 units of heparin for systemic anticoagulation at this time. The Penumbra device was then inserted through the 16 Malagasy sheath and a suction thrombectomy was performed [...] device was removed as was the 16 Malagasy sheath and an 0 silk suture was [...] the case. Kristyn Blankenship MD Vascular Surgery [facility] 04-06-2024 Note Formatting of this n ote is different from the original. Date: 04/06/2024 Location: [facility] OR Name: Mel Pop : 1940, Diagnosis Pre-op Diagnosis * Right leg DVT (HCC) [I82.401] Post-op Diagnosis * Right leg DVT (HCC) [I82.401] Procedures RIGHT LOWER EXTREMITY VENOUS MECHANICAL THROMBECTOMY 88337 - [place] PRQ TRANSLUMINAL MECHANICAL THROMBECTOMY VEIN Surgeons * Kristyn Blankenship - Primary Procedure Summary Anesthesia: General ASA: III Estimated Blood Loss: 300 mL Drains: * None in log * Staff: Splicing Supervisor: Negrita Elizabeth RN; Amira Burton RN Scrub [...] antibiotics are not indicated for this procedure. [facility] 04-06-2024 Note Formatting of this n ote might be different from the original. Dr Blankenship at bedside. She called family to update them on procedure time change [facility] 04-06-2024 Note Formatting of this n ote might be different from the original. Dr Blankenship at bedside. She called family to update them on procedure time change [facility] 04-06-[address] Blankenship at bedside. She called family to update them on procedure time change [facility] 04-05-2024 Note Formatting of this n ote is different from the original. Images from the original note were not included. Care Management Progress Note Vascular following with noted plan for possible thrombectomy tomorrow. Remains on heparin gtt while transitioning to coumadin per oncology recommendation. Pt from home alone- indep and active with [facility]- will return. Discharge Milestones and Delays [...] vasc consult" 04/06/2024 Bernei Cutler APRN - STRETCHING MACHINE TENDER FRAME 04/04/2024 4:04 AM 04/06/2024 Bernie Cutler APRN - STRETCHING MACHINE TENDER FRAME 04/03/2024 11:17 PM Length of Stay (Days): [...] from home alone- indep and active with [facility]- will return. Discharge Milestones and Delays [...] [facility] Hematology Oncology Inpatient Consultation [facility] Mel Pop : 1940(83 y.o.) Date: [...] hypertension, and GERD who presented to [facility] for right lower extremity pain. Reports [...] trifurcation vessels. Vascular surgery recommended transfer to [facility]. PVR and BLE US results [...] called her listed contacts (her friend and [id number]-etr however they do not manage her pill [...] left a voicemail with [facility] in [place] to see if the Eliquis is being [...] min Stress: No Stress Concern Present (04/04/2024) [place] Citizen [place] of Occupational Health - Occupational Stress Questionnaire Feeling of Stress : Not at all Social Connections: Moderately Isolated (04/04/2024) Social Connection and Isolation Panel [NHANES] Frequency of Communication with Friends and Family: More than three times a week Frequency of Social Gatherings with Friends and Family: More than three times a week Attends Synagogue Services: 1 to 4 times per year [...] 04/03/2024 Patient Name: MEL POP : 1940 [facility] [id number] Exam Date/Time: 04/03/2024 21:06 Procedure: CT HEAD [...] completing clinical documentation as well as with itsj-vp-tvhs patient care, performing a medically appropriate examination, counseling / educating the patient/family/caregiver, and ordering medications, tests, or procedures. Electronically signed by Anthony Yee APRN - STRETCHING MACHINE TENDER FRAME Attending Attestation Note: I have personally performed [...] well as answering questions. Andre Patel MD [facility] Work Phone: 04-04-2024 Consult note Formatting of th is note is different from the original. Images from the original note were not included. [facility] Hematology Oncology Inpatient Consultation [facility] Mel Pop : 1940(83 y.o.) Date: [...] hypertension, and GERD who presented to [facility] for right lower extremity pain. Reports [...] trifurcation vessels. Vascular surgery recommended transfer to [facility]. PVR and BLE US results [...] called her listed contacts (her friend and lciboyyi-qo-jsh however they do not manage her pill [...] eliquis. I have left a voicemail with [facility] pharmacy in [place] to see if the Eliquis is being [...] min Stress: No Stress Concern Present (04/04/2024) [place] Citizen [place] of Occupational Health - Occupational Stress Questionnaire Feeling of Stress : Not at all Social Connections: Moderately Isolated (04/04/2024) Social Connection and Isolation Panel [NHANES] Frequency of Communication with Friends and Family: More than three times a week Frequency of Social Gatherings with Friends and Family: More than three times a week Attends Synagogue Services: 1 to 4 times per year [...] 04/03/2024 Patient Name: MEL POP : 1940 [facility]#: [id number] Exam Date/Time: 04/03/2024 21:14 Procedure: CTA AORTA [...] 04/03/2024 [facility]: [facility] 1940 [id number] Exam Date/Time: 04/03/2024 21:06 Procedure: CT HEAD [...] completing clinical documentation as well as with qarw-yu-bzth patient care, performing a medically appropriate examination, counseling / educating the patient/family/caregiver, and ordering medications, tests, or procedures. Electronically signed by Anthony Yee APRN - STRETCHING MACHINE TENDER FRAME Attending Attestation Note: I have personally performed [...] Lolita Sarah MD PGY5, General Surgery Pager #[phone] Past Medical History: Diagnosis Date Asthma Essential [...] min Stress: No Stress Concern Present (04/04/2024) [place] Citizen [place] of Occupational Health - Occupational Stress Questionnaire Feeling of Stress : Not at all Social Connections: Moderately Isolated (04/04/2024) Social Connection and Isolation Panel [NHANES] Frequency of Communication with Friends and Family: More than three times a week Frequency of Social Gatherings with Friends and Family: More than three times a week Attends Synagogue Services: 1 to 4 times per year [...] TESTING: Patient Name: MEL POP [facility] 1940 [id number] Exam Date/Time: 04/03/2024 21:14 Procedure: CTA AORTA [...] of phlegmasia. Heparin gtt initiated at [facility] prior to transfer and continued here. [...] Limits Permission given to speak with patient packaging sales representative/caregiver as indicated: Confirmation of Payer with patient/family: Yes Payer Name: humana [place]: No Confirmation of Primary Care Physician: Confirmed [...] Home Health Services Care Services Provider Name: [facility] Dialysis Type: NA Durable Medical Equipment: [...] home alone and indep. Pt active with [facility]- liaison following for continued services. [...] Limits Permission given to speak with patient packaging sales representative/caregiver as indicated: Confirmation of Payer with patient/family: Yes Payer Name: humana [place]: No Confirmation of Primary Care Physician: Confirmed [...] Home Health Services Care Services Provider Name: [facility] Dialysis Type: NA Durable Medical Equipment: [...] home alone and indep. Pt active with [facility]- liaison following for continued services. [...] is noted as yes - consider a FLORAL DEPARTMENT SPECIALIST evaluation once the patient returns home. START PATIENT REGISTRATION INFORMATION Order Information Order Signing Physician: Robert Vigil MD Service Ordered RN ?: Yes Service Ordered PT ?: Yes Service Ordered OT ?: No Service Ordered ST ?: No Service Ordered FLORAL DEPARTMENT SPECIALIST?:No Service Ordered FOUNDRY WORKER GENERAL?: No Following Physician: Jared Evans MD Following Physician Overseeing Physician: Jared Evans MD (Required for Residents only) Agreeable to Follow? Yes Date/Time of Call 04/04/24 11:36 AM, Spoke with: Patient is a DEB. Care Coordination Same Day SOC?: No Primary Care Physician: Jared Evans MD Primary Care Physician Primary Care Physician Address: [address] [place] [address] Visit Instructions: N/A Service Discharge Location Type: Home with Home Care Service Facility Name: N/A Service Floor Facility: N/A Service Room No: N/A Demographics Patient Last Name: Jose Alberto Patient First Name: Mel Language/Communication Barrier: none Service Address: [address] [place] [address] [address] Service City: [place] Service ST: [place] Service ZIP: [address] Service Other phone numbers: Telephone Information: Emergency [...] Caregiver Phone Number: na Caregiver Notes: N/A [employer] List No END PATIENT REGISTRATION INFORMATION Pt [...] intervention. Discharge Date: pending Referral Source-PACC: (Hospital/Unit): [facility] / N4-461/N4-461 B End PACC Note [...] is noted as yes - consider a FLORAL DEPARTMENT SPECIALIST evaluation once the patient returns home. START PATIENT REGISTRATION INFORMATION Order Information Order Signing Physician: Robert Vigil MD Service Ordered RN ?: Yes Service Ordered PT ?: Yes Service Ordered OT ?: No Service Ordered ST ?: No Service Ordered FLORAL DEPARTMENT SPECIALIST?:No Service Ordered FOUNDRY WORKER GENERAL?: No Following Physician: Jared Evans MD Following Physician Overseeing Physician: Jared Evans MD (Required for Residents only) Agreeable to Follow? Yes Date/Time of Call 04/04/24 11:36 AM, Spoke with: Patient is a DEB. Care Coordination Same Day SOC?: No Primary Care Physician: Jared Evans MD Primary Care Physician Primary Care Physician Address: [address] [place] [address] / [facility] [id number] Visit Instructions: N/A Service Discharge Location Type: Home with Home Care Service Facility Name: N/A Service Floor Facility: N/A Service Room No: N/A Demographics Patient Last Name: Jose Alberto Patient First Name: Mel Language/Communication Barrier: none Service Address: [address] [place] [address] [address] Service City: [facility] ST: [place] Service ZIP: [address] Service Other phone numbers: Telephone Information: Emergency [...] Caregiver Phone Number: na Caregiver Notes: N/A Stroodle-OwlTing ??? List No END PATIENT REGISTRATION INFORMATION Pt [...] intervention. Discharge Date: pending Referral Source-PACC: (Hospital/Unit): [facility] / N4-461/N4-461 B End PACC Note [...] the original. Patient is currently active with [facility]. The patients current certification period will on 05/18/24. The patient is currently receiving PT services through the agency. Artificial Pearl Maker to continue to follow. [facility] 04-04-2024 Note Formatting of this n ote might be different from the original. Patient is currently active with [facility]. The patients current certification period will on 05/18/24. The patient is currently receiving PT services through the agency. [employer] to continue to follow. [facility] 04-04-2024 Consult note Associated Order (s): IP [...] Lolita Sarah MD PGY5, General Surgery Pager #[phone] Past Medical History: Diagnosis Date Asthma Essential [...] min Stress: No Stress Concern Present (04/04/2024) [place] Citizen [place] of Occupational Health - Occupational Stress Questionnaire Feeling of Stress : Not at all Social Connections: Moderately Isolated (04/04/2024) Social Connection and Isolation Panel [NHANES] Frequency of Communication with Friends and Family: More than three times a week Frequency of Social Gatherings with Friends and Family: More than three times a week Attends Synagogue Services: 1 to 4 times per year [...] TESTING: Patient Name: MEL POP : 1940 [facility]#: [id number] Exam Date/Time: 04/03/2024 21:14 Procedure: CTA AORTA [...] of phlegmasia. Heparin gtt initiated at [facility] prior to transfer and continued here. She notes missed doses of her Eliquis. Recommend compression and elevation of the right lower extremity. Can consider mechanical thrombectomy however given patient's age, this may be more risk than of benefit. Will continue to monitor for symptom improvement on anticoagulation alone. [facility] Work Phone: 04-04-2024 Note Formatting of this [...] - DO NOT do CPR, intubation] [_] [DNR-GRAVURE PRESS OPERATOR - Comfort care only] [_] DNR form [...] with patient and/or family/surrogate. Pratibha Avelar DO [employer] 04/04/2024, 5:40 AM Y [facility] 04-04-2024 Note Formatting of this n ote [...] - DO NOT do CPR, intubation] [_] [DNR-GRAVURE PRESS OPERATOR - Comfort care only] [_] DNR form [...] with patient and/or family/surrogate. Pratibha Avelar DO [employer] 04/04/2024, 5:40 AM Y [facility] 04-04-2024 History and physical note Attending History [...] min Stress: No Stress Concern Present (04/04/2024) [place] Citizen [place] of Occupational Health - Occupational Stress Questionnaire Feeling of Stress : Not at all Social Connections: Moderately Isolated (04/04/2024) Social Connection and Isolation Panel [NHANES] Frequency of Communication with Friends and Family: More than three times a week Frequency of Social Gatherings with Friends and Family: More than three times a week Attends Synagogue Services: 1 to 4 times per year [...] Contact: SanchezJosé Miguel/ Fidel Mobile Relation: Child Pratibha Avelar DO Division of Hospitalist Medicine Inpatient Medical Services/[facility] [employer] [facility] Work Phone: 04-04-2024 Note [facility] 04-04-2024 History and physical note Attending [...] min Stress: No Stress Concern Present (04/04/2024) [place] Citizen [place] of Occupational Health - Occupational Stress Questionnaire Feeling of Stress : Not at all Social Connections: Moderately Isolated (04/04/2024) Social Connection and Isolation Panel [NHANES] Frequency of Communication with Friends and Family: More than three times a week Frequency of Social Gatherings with Friends and Family: More than three times a week Attends Synagogue Services: 1 to 4 times per year [...] DO Division of Hospitalist Medicine Inpatient Medical Services/[facility] documented in this encounter [facility] [...] Multiple attempts made to call report to [facility] with phone number provided by electric truck operator, but when phone number dialed RN only gets busy tone. Will try again. Shannon Bond RN 04/04/24 033 [facility] at bedside to transport pt to [facility]. Paperwork with EMS Shannon Bond RN 04/04/244 EMERGENCY DEPARTMENT ENCOUNTER Pt Name: Mel Pop [...] Resource Strain: Low Risk (05/18/2022) Received from [facility] Overall Financial Resource Strain (CARDIA) Difficulty of Paying Living Expenses: Not hard at all Food Insecurity: No Food Insecurity (05/18/2022) Received from [facility] Hunger Vital Sign Worried About Running Out of Food in the Last Year: Never true Ran Out of Food in the Last Year: Never true Transportation Needs: No Transportation Needs (05/18/2022) Received from [facility] PRAPARE - Transportation Lack of Transportation (Medical): No Lack of Transportation (Non-Medical): No Housing Stability: Unknown (05/18/2022) Received from [facility] Housing Stability Vital Sign Unable to [...] [facility] (Per Emergency Physician): Interpretation [...] and DIFFERENTIAL DIAGNOSIS/MDM: Vitals: Vitals: 04/03/243 04/03/246 04/03/243 04/03/242203 BP: (!) 142/63 (!) 142/63 [...] extremities will heparinize or admit her to [facility] in case she needs an emergent angio.. [...] Medicine Provider SEBASTIAN Herrera CNP 04/03/24 2238 Emergency Department Encounter [facility] Patient: Mel Pop : 1940 Date of Evaluation: 04/03/2024 ED Supervising Physician: Winifred Corenll DO I personally evaluated Mel Pop and [...] consulted recommends heparin drip and transferred to [facility], 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 Patient admitted to [facility]. Patient in agreement with plan. [...] Multiple attempts made to call report to [facility] with phone number provided by electric truck operator, but when phone number dialed RN only gets busy tone. Will try again. Shannon Bond RN 04/04/24 0331 [facility] 04-04-2024 Emergency department Note [facility] at bedside to transport pt to [facility]. Paperwork with EMS Shannon Bond RN 04/04/24 9329 [facility] 04-03-2024 Emergency department [...] 04/03/2024 ED Provider: Bernie Cutler APRN - STRETCHING MACHINE TENDER FRAME This patient was seen in conjunction with [...] Resource Strain: Low Risk (05/18/2022) Received from [facility] Overall Financial Resource Strain (CARDIA) Difficulty of Paying Living Expenses: Not hard at all Food Insecurity: No Food Insecurity (05/18/2022) Received from [facility] Hunger Vital Sign Worried About Running Out of Food in the Last Year: Never true Ran Out of Food in the Last Year: Never true Transportation Needs: No Transportation Needs (05/18/2022) Received from [facility] PRAPARE - Transportation Lack of Transportation (Medical): No Lack of Transportation (Non-Medical): No Housing Stability: Unknown (05/18/2022) Received from [facility] Housing Stability Vital Sign Unable to Pay for Housing in the Last Year: No Unstable Housing in the Last Year: No SCREENINGS PHYSICAL EXAM ED Triage Vitals [09/17/24 1748] Temp Heart Rate Resp BP 36.6 [...] Physician EKG interpretation can be found in [facility] RADIOLOGY (Per Emergency Physician): Interpretation per [...] and DIFFERENTIAL DIAGNOSIS/MDM: Vitals: Vitals: 04/03/243 04/03/246 04/03/243 04/03/24 2204 BP: (!) 142/63 (!) [...] extremities will heparinize or admit her to [facility] in case she needs an emergent angio.. [...] Emergency Medicine Provider SEBASTIAN Herrera CNP 04/03/242237 [facility] 04-03-2024 Physician Emergency department Note Emergency Department Encounter [facility] Patient: Mel [...] consulted recommends heparin drip and transferred to [facility], 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 Patient admitted to [facility]. Patient in agreement with plan. [...] [employer] Winifred Cornell DO 04/06/24 4805 [employer] Work Phone: 07-27-2023 History of Present illness Narrative [facility] [address] [place] [address] [place] [id number] Dept: [phone] Dept Mel Pop 1940 [id number] 07/27/2023 HISTORY OF PRESENT ILLNESS: Mel is [...] 07-06-2022 Miscellaneous Notes PATIENT INFORMATION Record ID: [id number] Patient [facility]: [facility] Hospital: [facility] [place]: [facility] Attending: Iwona Chu Center: Internal Medicine and Geriatrics INSTRUCTIONS All Clear SN to remind patient of next upcoming appointment date, time, location All Clear All Clear All Clear SURVEY INFORMATION Medical/Nurse Restorer [employer]: Inés Tubbs 1. Your discharge instructions are [...] No documented in this encounter [facility] 06-29-2022 Note HNO ID: [id number] Author: Joana Tolbert RPh Service: Pharmacy Author [...] Your Medications These medications were sent to [facility] [address] [place] [address] Hours: Tuesday-Tuesday, 8am-4:30pm apixaban 5 mg (74 tabs) ascorbic acid (vitamin C) 500 mg tablet bacitracin 500 unit/gram ointment guaiFENesin 600 mg 12 hr tablet HYDROcodone-acetaminophen 5-325 mg per tablet lactobacillus rhamnosus 10 billion cell capsule metoprolol tartrate (short acting) [address] 40 mg tablet sucralfate 1 gram tablet [facility] 06-29-2022 Note HNO ID: [id number] Author: Kassidy Mejia RN Service: Care Management Author Type: Registered Nurse Type: Care Mgt Progress Note Filed: 06/29/2022 12:39 PM Note Text: CARE MANAGEMENT DISCHARGE NOTE SERVICE DATE: 06/29/2022 SERVICE TIME: 12:38 PM LOS: 13 days Admission Date: 06/16/2022 DISCHARGE ARRANGEMENT (list agency and phone number) Discharge Arrangement: Home with Home Health Provider Name: [facility]/[place] CAREGIVER ASSESSMENT: Caregiver is ready, willing and able to meet the patient's needs as recommended by the inter-professional team:: Yes Patient's transition needs and plan for meeting these needs: hhc HANDOFF COMMUNICATION: TRANSPORTATION ARRANGEMENTS: Transportation Arrangements: Car ADDITIONAL CONTACT RESOURCES: [facility] was able to approve and deliver home O2. SIGNATURE: Kassidy Mejia RN PATIENT NAME: Mel Castillo DATE: June 29, 2022 TIME: 12:38 PM PAGER/CONTACT #: [phone] [facility] 06-28-2022 Note HNO ID: [id number] Author: Iwona Chu DO Service: Hospital Medicine Author Type: Physician Type: Progress Notes Filed: 06/28/2022 8:58 PM Note Text: Needs O2 arranged before discharge [facility] 06-28-2022 Note HNO ID: [id number] Author: Irene Han RN Service: Care Management Author Type: Registered Nurse Type: Care Mgt Progress Note Filed: 06/28/2022 2:39 PM Note Text: CARE MANAGEMENT PROGRESS NOTE SERVICE DATE: 06/28/2022 SERVICE TIME: 1357 LOS: 12 days Needs Prior to Discharge: To Be Determined;Home Care Order;Equipment Delivery;Discharge Prescriptions;Pharmacy Bedside Delivery;Other: See Comment;Oxygen Set-up;Procedure;Patient/Family (medical clearance) IMM Follow Up Copy Given: Yes Copy given to:: Patient Method: In Person (verbalized understanding) Referral sent to [facility] for home going O2. Awaiting ambulatory pox to be completed. Plan to return home with family support and HHC through [facility]. Family to transport. Will need home O2/HC orders, prior to dc. IMM completed. UPDATE @ 9600: [facility] is outside of the patient's service area. Additional DMR referrals sent to [facility] and [facility]; awaiting response. Will need accepting DMR provider and home O2 delivery, prior to discharge. Oxygen/HC orders in [facility]. SIGNATURE: Irene Han RN PATIENT NAME: Mel Castillo DATE: June 28, 2022 TIME: 1:58 PM PAGER/CONTACT #: [phone] [facility] 06-28-2022 Note HNO ID: [id number] Author: Iwona Chu DO Service: Hospital Medicine [...] micropuncture needle and serially upsized to a 5-Malagasy sheath. A venogram was then performed, which [...] time, the sheath was upsized to an 8-Malagasy sheath. An intravascular ultrasound was performed. This [...] of overt GI (more content not included)... [facility] 06-27-2022 Note HNO ID: [id number] Author: Iwona Chu DO Service: Hospital Medicine [...] micropuncture needle and serially upsized to a 5-Malagasy sheath. A venogram was then performed, which [...] time, the sheath was upsized to an 8-Malagasy sheath. An intravascular ultrasound was performed. This [...] accept for hh (more content not included)... [facility] 06-26-2022 Note HNO ID: [id number] Author: Iwona Nakia Floro, DO Service: Hospital Medicine Author Type: Physician [...] micropuncture needle and serially upsized to a 5-Malagasy sheath. A venogram was then performed, which [...] time, the sheath was upsized to an 8-Malagasy sheath. An intravascular ultrasound was performed. This [...] 06/22/22 rec subacute/SNF (more content not included)... [facility] 06-25-2022 Note HNO ID: [id number] Author: Heron Ayers MD Service: Hospital Medicine [...] ORAL 2 TIMES DAILY Ordered 06/24/221812 -- 06/25/22899 apixaban 10 mg tab(s) (ELIQUIS) (apixaban tab(s) (ELIQUIS)) See Hyperspace for full Linked Orders Report. 10 mg ORAL 2 TIMES DAILY Given, 06/25 84106/24/22181207/02/2259 06/16/221944 vte current anticoag therapy ([place]) 06/16/221944 activity - mobilize patient ([place] VTE Prophylaxis: VTE prophylaxis appropriate Disposition: Home Plan of care discussed with: Provider, RN, Patient SIGNATURE: Heron Ayers MD PATIENT NAME: Mel Castillo DATE: June 25, 2022 TIME: 12:03 PM etx [id number] [facility] 06-25-2022 Note HNO ID: [id number] Author: Kassidy Mejia RN Service: Care Management [...] 25, 2022 TIME: 11:30 AM PAGER/CONTACT #: [phone] [facility] 06-24-2022 Note HNO ID: [id number] Author: Richie Yi MD Service: General Internal Medicine Author Type: Physician Type: Progress Notes Filed: 06/24/2022 6:34 PM Note Text: DEPARTMENT OF HOSPITAL MEDICINE PROGRESS NOTE SERVICE DATE: 06/23/2022 SERVICE TIME: 7:19 PM Hospital Medicine/Primary Attending: Richie Yi MD NIGHT AND WEEKEND COVERAGE: MOULTRIE COVERAGE: After 7pm, please call cross cover pager #[phone] Subjective Patient was seen today. She is [...] 06/25/22 0300 06/16/221944 vte current anticoag therapy (pr,nh) 06/16/221944 activity - mobilize patient (pr,nh) VTE Prophylaxis: VTE prophylaxis appropriate Disposition: To be determined Plan of care discussed with: Provider, RN, Patient SIGNATURE: Richie Yi MD PATIENT NAME: Mel Castillo DATE: June 23, 2022 TIME: 7:19 PM etx [id number] [facility] 06-24-2022 Note HNO ID: [id number] Author: SHAQUILLE Kaye Service: Care Management Author Type: Plastic Dolls Mold Filler Type: Care Mgt Progress Note Filed: 06/24/2022 [...] 24, 2022 TIME: 1:02 PM PAGER/CONTACT #: [phone] [facility] [facility] 06-23-2022 Note HNO ID: [id number] Author: Richie Yi MD Service: General Internal Medicine Author Type: Physician Type: Progress Notes Filed: 06/23/2022 7:28 PM Note Text: DEPARTMENT OF HOSPITAL MEDICINE PROGRESS NOTE SERVICE DATE: 06/23/2022 SERVICE TIME: 7:19 PM Hospital Medicine/Primary Attending: Richie Yi MD NIGHT AND WEEKEND COVERAGE: MOULTRIE COVERAGE: After 7pm, please call cross cover pager #[phone] Subjective Patient was seen today. She is [...] 1028 -- 06/16/221944 vte current anticoag therapy (pr,nh) 06/16/221944 activity - mobilize patient (pr,oh) VTE Prophylaxis: VTE prophylaxis appropriate Disposition: To be determined Plan of care discussed with: Provider, RN, Patient SIGNATURE: Richie Yi MD PATIENT NAME: Mel Castillo DATE: June 23, 2022 TIME: 7:19 PM etx [id number] [facility] 06-23-2022 Note HNO ID: [id number] Author: Kassidy Mejia RN Service: Care Management Author Type: Registered Nurse Type: Care Mgt Progress Note Filed: 06/23/2022 4:00 PM Note Text: CARE MANAGEMENT PROGRESS NOTE SERVICE DATE: 06/23/2022 SERVICE TIME: 3:55 PM LOS: 7 days Spoke with pt at the bedside. Discussed SNF placement. Auth obtained for [facility]- pt would be responsible for copay 50% of cost per day for days 1-100. Pt refusing SNF at this time. Pt would like to d/c home with her son and dtr-in-law to ([address] [facility] [address]). Pt would agreeable to [facility]- Referrals sent. Pt may need home O2- await ambulatory pulse ox. Family likely able to transport at d/c. CM to follow. SIGNATURE: Kassidy Mejia RN PATIENT NAME: Mel Castillo DATE: June 23, 2022 TIME: 3:53 PM PAGER/CONTACT #: [phone] [facility] 06-22-2022 Note HNO ID: [id number] Author: Dwayne Zaidi MD Service: Hospital Medicine Author Type: Physician Type: Progress Notes Filed: 06/22/2022 6:47 PM Note Text: DEPARTMENT OF HOSPITAL MEDICINE PROGRESS NOTE SERVICE DATE: 06/22/2022 SERVICE TIME: 6:42 PM Hospital Medicine/Primary Attending: Dwayne Zaidi MD NIGHT AND WEEKEND COVERAGE: After 7pm please page [phone] CHIEF COMPLAINT: Follow-up for acute left lower [...] bowel sounds normally heard, no mass palpable DEMURRAGE AGENT- cranial nerves 2 to 12 grossly intact, [...] (PROTONIX) 40 mg ORAL BID AC (0600/1600) [START ON 06/23/2022] amoxicillin-clavulanic acid 875 mg [...] 06/19/22 0513 06/18/226 06/17/22 0510 06/16/22 0341 ALB 2.4* -- -- -- -- 3.2* TPROT 5.3* -- (more content not included)... [facility] 06-22-2022 Note HNO ID: [id number] Author: Kassidy Mejia RN Service: Care Management Author Type: Registered Nurse Type: Care Mgt Progress Note Filed: 06/22/2022 10:15 AM Note Text: CARE MANAGEMENT PROGRESS NOTE SERVICE DATE: 06/22/2022 SERVICE TIME: 10:15 AM LOS: 6 days IMM Follow Up Copy Given: Yes Copy given to:: Patient Method: In Person (verbal) [facility] is able to accept pt. Precert tasked. Pt will need cot for transport. CM to follow. SIGNATURE: Kassidy Mejia RN PATIENT NAME: Mel Castillo DATE: June 22, 2022 TIME: 10:14 AM PAGER/CONTACT #: [phone] [facility] 06-21-2022 Note HNO ID: [id number] Author: Dwayne Zaidi MD Service: Hospital Medicine Author Type: Physician Type: Progress Notes Filed: 06/21/2022 4:10 PM Note Text: DEPARTMENT OF HOSPITAL MEDICINE PROGRESS NOTE SERVICE DATE: 06/21/2022 SERVICE TIME: 4:04 PM Hospital Medicine/Primary Attending: Dwayne Zaidi MD NIGHT AND WEEKEND COVERAGE: After 7pm please page [phone] CHIEF COMPLAINT: Follow-up for acute left lower [...] bowel sounds normally heard, no mass palpable DEMURRAGE AGENT- cranial nerves 2 to 12 grossly intact, [...] by weight. Has (more content not included)... [facility] 06-21-2022 Note HNO ID: [id number] Author: Kassidy Mejia RN Service: Care Management Author Type: Registered Nurse Type: Care Mgt Progress Note Filed: 06/21/2022 3:44 PM Note Text: CARE MANAGEMENT PROGRESS NOTE SERVICE DATE: 06/21/2022 SERVICE TIME: 3:41 PM LOS: 5 days Spoke with pt at the bedside. Pt states that she lives at home alone. PT/OT rec SNF. Pt would like [facility]- referral sent. Await acceptance. Pt will need precert when medically stable. Pt will need cot for transport. Cm to follow. SIGNATURE: Kassidy Mejia RN PATIENT NAME: Mel Csatillo DATE: June 21, 2022 TIME: 3:41 PM PAGER/CONTACT #: [phone] [facility] 06-21-2022 Note HNO ID: [id number] Author: Primo Dodd APRN.SHAMIKA Service: Gastroenterology Author [...] evaluation given evidence (more content not included)... [facility] 06-20-2022 Note HNO ID: [id number] Author: Acacia Hardin DO Service: General Surgery Author Type: Resident Type: Plan of Care Filed: 06/20/2022 1:40 PM Note Text: Plan of Care Dr. 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 Spoke with Dr. Wilson, senior online marketing manager for Dr. Rodriguez, and she states [...] kg/m? Acacia Hardin DO 06/20/2022 1:36 PM [facility] 06-20-2022 Note HNO ID: [id number] Author: Dwayne Zaidi MD Service: Hospital Medicine Author Type: Physician Type: Progress Notes Filed: 06/20/2022 12:39 PM Note Text: DEPARTMENT OF HOSPITAL MEDICINE PROGRESS NOTE SERVICE DATE: 06/20/2022 SERVICE TIME: 12:35 PM Hospital Medicine/Primary Attending: Dwayne Zaidi MD NIGHT AND WEEKEND COVERAGE: After 7pm please page [phone] CHIEF COMPLAINT: Follow-up for acute left lower [...] bowel sounds normally heard, no mass palpable DEMURRAGE AGENT- cranial nerves 2 to 12 grossly intact, [...] interval not displayed. 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 Acute left lower extremity ischemia secondary to thrombosis versus embolism of the right femoral artery. Vascular surgery on consult. 2. 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 Attempted endovascular thrombolysis but this was unsuccessful. Overall improving with heparin by weight. Has previous IVC tahmina (more content not included)... [facility] 06-19-2022 Note HNO ID: [id number] Author: Dwayne Zaidi MD Service: Hospital Medicine Author Type: Physician Type: Progress Notes Filed: 06/19/2022 4:33 PM Note Text: DEPARTMENT OF HOSPITAL MEDICINE PROGRESS NOTE SERVICE DATE: 06/19/2022 SERVICE TIME: 4:29 PM Hospital Medicine/Primary Attending: Dwayne Zaidi MD NIGHT AND WEEKEND COVERAGE: After 7pm please page [phone] CHIEF COMPLAINT: Follow-up for acute left lower [...] bowel sounds normally heard, no mass palpable DEMURRAGE AGENT- cranial nerves 2 to 12 grossly intact, [...] this interval not displayed. BMP: Recent Labs 06/19/2251206/18/2241506/17/2250906/16/22 034 GLUC 115* 112* 84 122* NA [...] stools and andrew (more content not included)... [facility] 06-18-2022 Note HNO ID: [id number] Author: Emanuel Hull MD Service: General Surgery [...] Surgery PGY-3 June 18, 2022 5:39 PM [facility] 06-18-2022 Note HNO ID: [id number] Author: Dwayne Zaidi MD Service: Hospital Medicine Author Type: Physician Type: Progress Notes Filed: 06/18/2022 5:37 PM Note Text: DEPARTMENT OF HOSPITAL MEDICINE PROGRESS NOTE SERVICE DATE: 06/18/2022 SERVICE TIME: 5:35 PM Hospital Medicine/Primary Attending: Dwayne Zaidi MD NIGHT AND WEEKEND COVERAGE: After 7pm please page [phone] CHIEF COMPLAINT: Follow-up for acute left lower [...] bowel sounds normally heard, no mass palpable DEMURRAGE AGENT- cranial nerves 2 to 12 grossly intact, [...] + Bolus for (more content not included)... [facility] 06-18-2022 Note HNO ID: [id number] Author: Kassidy Mejia RN Service: Care Management [...] 18, 2022 TIME: 3:46 PM PAGER/CONTACT #: [phone] [facility] 06-17-2022 Note HNO ID: [id number] Author: Eliza Parikh RN Service: Nursing Author Type: Registered Nurse Type: Nursing Progress Note Filed: 06/17/2022 7:24 PM Note Text: Pt to 4200 via bed. Pt tolerated well. [facility] 06-17-2022 Note HNO ID: [id number] Author: Eliza Parikh RN Service: Nursing Author Type: Registered Nurse Type: Nursing Progress Note Filed: 06/17/2022 4:35 PM Note Text: Report to [address] FRAGA [facility] 06-17-2022 Note HNO ID: [id number] Author: Efrain Ivey ([employer] Crew Member) Service: Pharmacy Author Type: Sleeping Car Conductor Type: Plan of Care Filed: 06/17/2022 2:16 PM Note Text: PHARMACY MEDICATION REVIEW Patient Name: Mel Castillo : 1940 The following medications were updated within the ATHLETIC INSTRUCTOR medication list: Medications ADDED to ATHLETIC INSTRUCTOR medication list amLODIPine (NORVASC) 10 mg tablet OTHER Yes Yes dexAMETHasone (DECADRON) 4 mg tablet OTHER Yes Yes lisinopril (ZESTRIL, PRINIVIL) 5 mg tablet OTHER Yes Yes RX filled via [facility] and verified with pt. herself Medications CHANGED on ATHLETIC INSTRUCTOR medication list na Medications REMOVED from ATHLETIC INSTRUCTOR medication list na Additional comments: I was able to talk with the pt. about her home medications. She states she takes the 3 RX medications recorded below. These 3 medications were added to her ATHLETIC INSTRUCTOR list. She has finished Paxlovid and a physician stopped Augmentin per pt. interview Required follow up for nursing. Medication history completed by Historian. No nursing follow up required. The below information represents the best possible medication history: Yes Medication history completed by: Sleeping Car Conductor: Efrain Ivey ([employer]) Source of history: Patient: Reliability of source: Appears reliable, clearly identified: Medication name, Medication dose, Medication route, and Medication frequency and Pharmacy records: [facility] Medication nonadherence identified: No barriers noted Reconciliation completed: No, pharmacist not yet reviewed Patient interested in Bedside Delivery Services or using [facility] Pharmacy at discharge? No Preferred outpatient pharmacy: [id number] [place] [address] - [address] [phone] [id number] Allergies: Percocet [Oxycodone* Itching Prior to Admission [...] once daily. Facility-Administered Medications: None Efrain Ivey ([employer] Crew Member) phone [phone] 06/17/2022 [facility] 06-17-2022 Note HNO ID: [id number] Author: Ladan Adame RN Service: Care Management [...] 17, 2022 TIME: 12:37 PM PAGER/CONTACT #: [phone] [facility] 06-17-2022 Note HNO ID: [id number] Author: Eliza Parikh RN Service: Nursing Author Type: Registered Nurse Type: Nursing Progress Note Filed: 06/17/2022 10:40 AM Note Text: Echo at bedside [facility] 06-16-2022 Note HNO ID: [id number] Author: Cirilo Alaniz APRN.PRETZEL COOKER Service: Anesthesiology Author Type: Nurse Repairer Veneer Sheet Type: Anesthesia Procedure Notes Filed: 06/16/2022 5:04 PM Note Text: ANESTHESIOLOGY PROCEDURE NOTE Airway General Information Procedure Start Time/Medication Administration: 06/16/2022 4:29 PM Patient location during procedure: OR Timeout Performed Pre-procedure: timeout performed Consent Obtained: Yes Patient identity confirmed: arm band and patient Staffing PRETZEL COOKER: Cirilo Alaniz APRN.PRETZEL COOKER Indications and Patient Condition Indications for airway [...] June 16, 2022 TIME: 5:03 PM CSN: [id number] [facility] 06-16-2022 Note HNO ID: [id number] Author: Jean Pierre Gamboa RPh Service: Pharmacy [...] patient. Signature: Jean Pierre Gamboa RPh Pager/Extension: [phone] [facility] 05-17-2022 History of Present illness Narrative [...] be seen in the emergency room at [facility] for probable admission for IV antibiotics and airway concern. Patient understands this and will leave shortly. Josiah Barnes MD Findings will be communicated to the referring physician via mail or electronic medical record. documented in this encounter [facility] 05-14-2022 Instructions Jared Velazquez PA-C - [...] PA-C documented in this encounter [facility] 05-14-2022 History of Present illness Narrative [...] which included preparing to see the patient, [id number] patient care, completing clinical documentation, performing a medically appropriate examination, counseling and educating the patient/family/caregiver, and ordering medications, tests, or procedures. documented in this encounter [facility] Evaluation note Diagnosis Salivary gland swelling- Primary Hypertrophy of salivary gland [facility] Diagnosis Acute bacterial sialadenitis- Primary Bashir's, angina [facility] Diagnosis Localized swelling, mass and lump, [...] soft tissue disorders documented in this encounter [facility] [...] soft tissue disorders documented [facility]* Diagnosis Abnormal findings on diagnostic imaging of other specified body structures- Primary Pain in left leg Abnormal findings on diagnostic imaging of other specified body structures Pain in left leg documented [facility]* Diagnosis Peripheral arterial disease (HCC)- Primary Unspecified peripheral vascular disease Right leg pain Pain in soft tissues of limb Peripheral arterial disease (HCC) Unspecified peripheral vascular disease Right leg weakness Muscle weakness (generalized) Atrial fibrillation, unspecified type (HCC) Ischemic leg Unspecified circulatory system disorder [facility]* Diagnosis Deep vein thrombosis (DVT) of lower extremity, unspecified chronicity, unspecified laterality, unspecified vein (HCC)- Primary [facility]* Diagnosis Atrial fibrillation, unspecified type (HCC) Acute venous embolism and thrombosis of deep vessels of proximal end of right lower extremity (HCC) documented in [facility] encounter [facility]* Diagnosis Acute deep vein thrombosis (DVT) of iliac vein of right lower extremity (HCC)- Primary PAD (peripheral artery disease) (HCC) Unspecified peripheral vascular disease [facility]* Diagnosis Deep vein thrombosis (DVT) of lower extremity, unspecified chronicity, unspecified laterality, unspecified vein (HCC) Atrial fibrillation, unspecified type (HCC) Acute venous embolism and thrombosis of deep vessels of proximal end of right lower extremity (HCC) documented in this encounter [facility]* Diagnosis Atrial fibrillation, unspecified type (HCC) Acute venous embolism and thrombosis of deep vessels of proximal end of right lower extremity (HCC) [facility]* Diagnosis Atrial fibrillation, unspecified type (HCC) Acute venous embolism and thrombosis of deep vessels of proximal end of right lower extremity (HCC) [facility]* Diagnosis Paroxysmal atrial fibrillation (HCC) Atrial fibrillation [facility]* Diagnosis Atrial fibrillation, unspecified [...] or 3b CKD (HCC) 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 (HCC) 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 Nicotine use disorder Tobacco use disorder Abnormal echocardiogram Nonspecific (abnormal) findings on radiological and other examination of other intrathoracic organs Left atrial mass [facility]* Diagnosis Retinal detachment, right- Primary Unspecified retinal detachment Vision loss of right eye Unqualified visual loss, one eye Acute intractable headache, unspecified headache type Visual disturbance, subjective Unspecified subjective visual disturbance Vision loss of right eye Unqualified visual loss, one eye Visual disturbance, subjective Unspecified subjective visual disturbance documented in this encounter [facility] note* Diagnosis 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 Hemorrhagic choroidal detachment Dislocation of intraocular lens, initial encounter Hemorrhagic choroidal detachment of right eye Hemorrhagic choroidal detachment documented in this encounter 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 note* Diagnosis Postoperative eye state- Primary Other states following surgery of eye and adnexa Hemorrhagic choroidal detachment of right eye Hemorrhagic choroidal detachment Pseudophakia, right eye Lens replaced by other means Subluxation of right lens Subluxation of lens documented in this encounter [facility] note* Diagnosis Paroxysmal atrial fibrillation (HCC)- Primary Atrial fibrillation Paroxysmal atrial fibrillation (HCC) Atrial fibrillation documented in this encounter [facility] note* Diagnosis Postoperative eye state Other states following surgery of eye and adnexa Hemorrhagic choroidal detachment of right eye Hemorrhagic choroidal detachment Pseudophakia, right eye Lens replaced by other means Subluxation of right lens Subluxation of lens Hemorrhagic choroidal detachment of right eye Hemorrhagic choroidal detachment documented in this encounter [facility] note* Diagnosis Post-operative state- Primary Other postprocedural status documented in this encounter [facility] note* Diagnosis Postoperative eye state Other states following surgery of eye and adnexa Hemorrhagic choroidal detachment of right eye Hemorrhagic choroidal detachment Pseudophakia, right eye Lens replaced by other means Subluxation of right lens Subluxation of lens documented in this encounter [facility] note* Diagnosis Aspiration pneumonitis (CMS/HCC) (HCC)- Primary Pneumonitis due to inhalation of food or vomitus Aspiration pneumonitis (CMS/HCC) (HCC) Pneumonitis due to inhalation of food or vomitus Vomiting and diarrhea LORENZA (acute kidney injury) (HCC) documented in this encounter [facility] note* Diagnosis Acute deep vein thrombosis (DVT) of iliac vein of right lower extremity (HCC)- Primary PAD (peripheral artery disease) (HCC) Unspecified peripheral vascular disease [facility] Diagnosis Postoperative eye state Other states following surgery of eye and adnexa Hemorrhagic choroidal detachment of right eye Hemorrhagic choroidal detachment Pseudophakia, right eye Lens replaced by other means Subluxation of right lens Subluxation of lens [facility]* Diagnosis 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 Hemorrhagic choroidal detachment Right retinal detachment Unspecified retinal detachment Postoperative eye state Other states following surgery of eye and adnexa Pseudophakia, right eye Lens replaced by other means Subluxation of right lens Subluxation of lens [facility] noteNo assessment information availableWProvidence Hospital Work Phone: Evaluation note* Diagnosis PAD (peripheral artery disease) (HCC)- Primary Unspecified peripheral vascular disease Skin ulcer of toe of right foot, limited to breakdown of skin (HCC) [facility]* Diagnosis Critical limb ischemia of right lower extremity (HCC)- Primary [facility]* Diagnosis Pre-op evaluation- Primary Skin ulcer of right great toe (HCC) Critical limb ischemia of right lower extremity (HCC) [facility]* Diagnosis Skin ulcer of toe of right foot, limited to breakdown of skin (HCC)- Primary PAD (peripheral artery disease) (HCC) Unspecified peripheral vascular disease Aftercare following surgery of the circulatory system Aftercare following surgery of the circulatory system, NEC [facility] Diagnosis Skin ulcer of toe of right foot, limited to breakdown of skin (HCC) PAD (peripheral artery disease) (HCC) Unspecified peripheral vascular disease Aftercare following surgery of the circulatory system Aftercare following surgery of the circulatory system, NEC [facility]* Diagnosis Aftercare following surgery of the circulatory system- Primary Aftercare following surgery of the circulatory system, NEC PAD (peripheral artery disease) (HCC) Unspecified peripheral vascular disease [facility]* Diagnosis 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 note* Diagnosis Right retinal detachment- Primary Unspecified retinal detachment Hemorrhagic choroidal detachment of right eye Hemorrhagic choroidal detachment Pseudophakia, right eye Lens replaced by other means [facility]* Diagnosis Acute deep vein thrombosis (DVT) of proximal vein of lower extremity, unspecified laterality (HCC)- Primary [facility] for referral (narrative)No reason for referral information availableWProvidence Hospital Work Phone: Reason for visit Narrative* Imaging (Routine) - Closed Specialty Diagnoses / Procedures Referred By Contac t Referred To Contact Cardiology Diagnoses Paroxysmal atrial fibrillation (HCC) Procedures Transthoracic echocardiogram (TTE) complete with contrast, bubble, strain, and 3D PRN UT ECHO TTHRC R-T 2D W/WOM-MODE COMPL SPEC&COLR D UT TTE W OR WO FOL WCNICK,Jared De La Garza MD [address] [place] [id number] Phone: tel: fax: Referral ID Status Reason Start Date Expiration Date Visits Re quested Visits Authorized [id number] Closed 04/20/2024 04/20/2025 1 1 [facility] for visit Narrative* Auth/Cert (Routine) Specialty Diagnoses / Procedures Referred By Contac t Referred To Contact Diagnoses Aspiration pneumonitis (CMS/HCC) (HCC) LORENZA (acute kidney injury) (HCC) Vomiting and diarrhea Procedures . Abbi Long DO [address] [place] [address] Phone: tel: fax: [facility] [address] [address] [place] [phone] Phone: tel: Referral ID Status Reason Start Date Expiration Date Visits Re quested Visits Authorized [id number] 1 1 [facility] [place] for visit Narrative* Auth/Cert (Routine) Specialty Diagnoses [...] CATH RS&I CHG AORTOGRAPHY ABDOMINAL SERIALOGRAPHY RS&I UT INTRODUCTION CATHETER AORTA UT REVSC OPN/PRG FEM/POP W/ANGIOPLASTY UNI UT REVSC OPN/PRQ TIB/PAMELA W/ANGIOPLASTY UNI UT REVSC OPN/PRQ TIB/PAMELA W/STNT/ANGIOP SM VSL UT REVSC OPN/PRQ FEM/POP W/STNT/ANGIOP SM VSL AORTOILIAC ANGIOGRAPHY, RIGHT LOWER EXTREMITY ANGIOGRAPHY WITH RUNOFF, POSSIBLE SUPERFICIAL FEMORAL ARTERY/POPLITEAL/TIBIAL ANGIOPLASTY/STENTING Kristyn Blankenship MD [address] [address] Phone: tel: fax: [facility] [address] [place] [address] Phone: tel: Referral ID Status Reason Start Date Expiration Date Visits Re quested Visits Authorized [id number] 1 1 [facility] (Routine) - Closed Specialty Diagnoses / Procedures Referred By Elvin leyva Referred To Contact Vascular Surgery / Radiology Diagnoses Skin ulcer of toe of right foot, limited to breakdown of skin (HCC) PAD (peripheral artery disease) (HCC) Aftercare following surgery of the circulatory system Procedures Vascular US lower extremity arterial duplex right with MICHELLE Kristyn Blankenship MD [address] [address] Phone: tel: fax: [facility] [address] [place] [address] Phone: tel: fax: Referral ID Status Reason Start Date Expiration Date Visits Re quested Visits Authorized [id number] Closed 12/05/2024 12/05/2025 1 1 [facility] Discharge Instructions * Attachments The following attachments cannot be sent through Care Everywhere. * Pulp-Space Infection (Kittitian) documented in this encounter* Instructions* Tiffany Zhu [...] Documents on File Type Date Recorded Patient Foot Orthopedist Expl anation Power of Matcher Offbearer 04/06/2024 10:04 AM Date Activated Date Inactivated [...] Documents on File Type Date Recorded Patient Foot Orthopedist Expl anation Power of Matcher Offbearer 04/16/2024 1:26 PM Power of Matcher Offbearer 04/06/2024 10:04 AM Healthcare Agents on File [...] Documents on File Type Date Recorded Patient Foot Orthopedist Expl anation Power of Matcher Offbearer 04/16/2024 1:26 PM Power of Matcher Offbearer 04/06/2024 10:04 AM Date Activated Date Inactivated [...] Documents on File Type Date Recorded Patient Foot Orthopedist Expl anation Advance Directive(s) 06/27/2024 12:58 PM [...] Documents on File Type Date Recorded Patient Foot Orthopedist Expl anation Advance Directive(s) 06/27/2024 12:58 PM [...] Documents on File Type Date Recorded Patient Foot Orthopedist Expl anation DNR (Do Not Resuscitate) 07/13/2024 10:35 AM Power of Matcher Offbearer 04/16/2024 1:26 PM Power of Matcher Offbearer 04/06/2024 10:04 AM Date Activated Date Inactivated [...] Documents on File Type Date Recorded Patient Foot Orthopedist Expl anation DNR (Do Not Resuscitate) 07/13/2024 10:35 AM Power of Matcher Offbearer 04/16/2024 1:26 PM Power of Matcher Offbearer 04/06/2024 10:04 AM Date Activated Date Inactivated [...] First Alternate Health Care Agent Nadira Castillo [id number] First Alternat e Health Care Agent Healthcare Agents on File Name Relationship Healthcare Agent Relationship Communication Damaris DO NOT CALL-TERMINALLY ILL [place] Friend First Alternate Health Care Agent Nadira Castillo [id number]-asu First Alternat e Health Care Agent Healthcare Agents on File Name Relationship Healthcare Agent Relationship Communication Damaris DO NOT CALL-TERMINALLY ILL [place] Friend First Alternate Health Care Agent Nadira Castillo [id number]-hgp First Alternat e Health Care Agent Date Activated Date Inactivated Comments 08/03/2024 10:17 AM 08/16/2024 4:47 PM Healthcare Agents on File Name Relationship Healthcare Agent Relationship Communication Damaris DO NOT CALL-TERMINALLY ILL [place] Friend First Alternate Health Care Agent Nadira Castillo Hdzjnsim-[id number] First Alternat e Health Care Agent Healthcare Agents on File Name Relationship Healthcare Agent Relationship Communication Damaris DO NOT CALL-TERMINALLY ILL [place] Friend First Alternate Health Care Agent Nadira Castillo Xgapadrc-kk-rea First Alternat e Health Care Agent Healthcare Agents on File Name Relationship Healthcare Agent Relationship Communication Damaris DO NOT CALL-TERMINALLY ILL [place] Friend First Alternate Health Care Agent Nadira Castillo Ernmtjwm-dj-ztx First Alternat e Health Care Agent Healthcare Agents on File Name Relationship Healthcare Agent Relationshi p Communication Nadira Castillo Lkejucjn-oq-sai First Alternat e Health Care Agent Healthcare Agents on File Name Relationship Healthcare Agent Relationshi p Communication Nadira Castillo [id number]-pp-vdv First Alternat e Health Care Agent Summary [...] HOSPITAL 60-74 MINUTES Jared Velazquez PA-C [address] [place] [address] Referral ID Status Reason Start Date Expiration Date Visits Requested Visits Authorized [id number] Authorized PCP Requested Referral 2 05/14/2023 1 1 Specialty Diagnoses / Procedures Referred By Contac t Referred To Contact Radiology Diagnoses Localized swelling, mass and lump, neck Procedures CT soft tissue neck w IV contrast Jared Evans MD [address] [place] [phone] Referral ID Status Reason Start Date Expiration Date Visits Re quested Visits Authorized [id number] Closed 03/08/2023 04/07/2023 1 1 Specialty Diagnoses / Procedures Referred By Contac t Referred To Contact Cardiology Diagnoses Other specified soft tissue disorders Procedures Vascular US lower extremity venous duplex left Jared Evans MD [address] [place] [phone] Referral ID Status Reason Start Date Expiration Date V isits Requested Visits Authorized [id number] Pending Review 05/24/2023 05/23/2024 1 1 Specialty Diagnoses / Procedures Referred By Contac t Referred To Contact Radiology Diagnoses Abnormal findings on diagnostic imaging of other specified body structures Pain in left leg Procedures MR tibia fibula left w and wo IV contrast Jared Evans MD [address] [place] [address] Referral ID Status Reason Start Date Expiration Date Visits Re quested Visits Authorized [id number] Closed 06/01/2023 05/31/2024 1 1 Health Concerns Infection Onset Date Last Indicated Resolved Time COVID-19 Confirmed Comment:First positive per ODH/ODRS system 06/02/2022. 06/16/2022 06/16/2022 06/19/2022 5:[address] Chief Complaint and Reason for Visit Chief Complaint Admit Date LABWORK August 20, 2024 5 :22am LABWORK September 03, 2024 5:00am INTERMEDIATE LAB WORK September 03 8:18am INTERMEDIATE LAB WORK September 10 5:00am Chief Complaint Admit Date LABWORK August 20, 2024 5 :22am LABWORK September 03, 2024 5:00am INTERMEDIATE LAB WORK September 03 8:18am INTERMEDIATE LAB WORK September 10 5:00am INTERMEDIATE LAB WORK September 17, 2024 4: 00am Chief Complaint Admit Date LABWORK August 20, 2024 5 :22am LABWORK September 03, 2024 5:00am INTERMEDIATE LAB WORK September 03 8:18am INTERMEDIATE LAB WORK September 10 5:00am INTERMEDIATE LAB WORK September 17, 2024 4: 00am INTERMEDIATE LAB WORK October 08, 2024 5 :00am Additional Source Comments Reason for Visit (unrecogniz ed section and content) Reason Comments Post-op (Ophthalmology) Right Eye Specialty Diagnoses / Procedures Referred By Elvin leyva Referred To Contact HOSP INPATIENT Diagnoses Retinal detachment Acute retinal detachment Retinal detachment Procedures EVAL AND TREAT OT Hosp Main [address] [place] [address] Referral ID Status Reason Start Date Expiration Date Visits Re quested Visits Authorized [id number] 1 1 Reason Comments Hemorrhagic choroidal detachment [...] MDM 60-74 MINUTES Jared Velazquez PA-C [address] [place] [address] Referral ID Status Reason Start Date Expiration Date V isits Requested Visits Authorized [id number] Closed PCP Requested Referral 05/14/2022 05/14/2023 1 1 Reason Comments Follow Up Gyant interaction - F/U - attempt made. No answer. Reason Comments Follow Up Phone Call All Clear Specialty Diagnoses / Procedures Referred By Contac t Referred To Contact Radiology Diagnoses Localized swelling, mass and lump, neck Procedures CT soft tissue neck w IV contrast Jared Evans MD [address] [place] [phone] Referral ID Status Reason Start Date Expiration Date Visits Re quested Visits Authorized [id number] Closed 03/08/2023 04/07/2023 1 1 Specialty Diagnoses / Procedures Referred By Contac t Referred To Contact Cardiology Diagnoses Other specified soft tissue disorders Procedures Vascular US lower extremity venous duplex left Jared Evans MD [address] [place] [phone] Referral ID Status Reason Start Date Expiration Date V isits Requested Visits Authorized [id number] Pending Review 05/24/2023 05/23/2024 1 1 Specialty Diagnoses / Procedures Referred By Contac t Referred To Contact Radiology Diagnoses Abnormal findings on diagnostic imaging of other specified body structures Pain in left leg Procedures MR tibia fibula left w and wo IV contrast Jared Evans MD [address] [place] [phone] Referral ID Status Reason Start Date Expiration Date Visits Re quested Visits Authorized [id number] Closed 06/01/2023 05/31/2024 1 1 Reason Comments New Patient Mass left LE Specialty Diagnoses / Procedures Referred By Contac t Referred To Contact Sports Medicine Diagnoses Pain in leg, unspecified Jared Evans MD [address] [place] [phone] [place] [address] Referral ID Status Reason Start Date Expiration Date Visits Re quested Visits Authorized [id number] Closed 07/06/2023 07/05/2024 1 1 Reason Comments Numbness Leg Swelling Specialty Diagnoses / Procedures Referred By Contac t Referred To Contact Diagnoses Right leg pain Peripheral arterial disease (HCC) Right leg weakness Atrial fibrillation, unspecified type (HCC) Procedures . Pratibha Avelar DO [address] [place] [address] [facility] [address] [place] [phone] Referral ID Status Reason Start Date Expiration Date Visits Re quested Visits Authorized [id number] 1 1 Reason Comments Follow-up 1st follow up RLE me chanical thrombectomy 04/06/24 (Krzysztof) Reason Onset Date Comments Med Refill 04/27/2024 Specialty Diagnoses / Procedures Referred By Contac t Referred To Contact Diagnoses [I63.9] - Cerebral infarction [facility] [address] [place] [address] Referral ID Status Reason Start Date Expiration Date V isits Requested Visits Authorized [id number] New Request 06/20/2024 08/19/2024 Reason Comments Eye Problem Pt reports blurred v ision, dizziness, and headache. LNW 07/04/24 @ 2130. Hx of strokes x 2, HTN, Afib, and right eye retinal detachment. Specialty Diagnoses / Procedures Referred By Contac t Referred To Contact Diagnoses Retinal detachment, right Vision loss of right eye Procedures . Silvio Peres MD [address] [place] [address] Phone: tel: fax: [facility] [address] [place] [phone] Phone: tel: Referral ID Status Reason Start Date Expiration Date Visits Re quested Visits Authorized [id number] 1 1 Reason Comments Eye Pain Right [...] OF VITREOUS, CHOROIDAL FLUID, PARS PLANA APPROACH [facility] [place] [address] [address] Referral ID Status Reason Start Date Expiration Date Visits Re quested Visits Authorized [id number] 1 1 Reason Comments 1 week post [...] Vomiting and diarrhea Procedures . Abbi Long, [address] [place] [address] Phone: tel: fax: [facility] [address] [address] [place] [address] Phone: tel: Referral ID Status Reason Start Date Expiration Date Visits Re quested Visits Authorized [id number] 1 1 Reason Comments Follow-up 3 month follow up, P AD check ([facility]) Reason Comments Post-op (Ophthalmology) Right Eye 1 marisela h Reason Comments Post op OD Reason Comments Follow-up R leg pain with grea t toe wound-PVR and CTA w runoff 03/2024 Reason Comments Follow-up 1st follow up RLE an juliana, possible SFA/pop/tib angioplasty/stenting 11/22/24 Reason Comments 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; 2nd follow up RLE angio, SFA/pop/tib angioplasty/stenting 11/22/24 ([facility] [phone]) Reason Comments Post-op (Ophthalmology) Right Eye Retinal Detachment OD Eye Crusting OD In the mornings Reason Comments Follow-up INFORMATION SOURCE (unrecogn ized section and content) DATE CREATED AUTHOR 03/13/2020 [facility] DATE CREATED AUTHOR AUTHOR'S ORGANIZ ATION 06/30/2022 [facility] [place] DATE CREATED AUTHOR AUTHOR'S ORGANIZ ATION 07/10/2024 [facility] DATE CREATED AUTHOR AUTHOR'S ORGANIZ ATION 12/14/2024 [facility] DATE CREATED AUTHOR AUTHOR'S ORGANIZ ATION 01/05/2025 [facility] DATE CREATED AUTHOR AUTHOR'S ORGANIZ ATION 03/17/2025 [facility] DATE CREATED AUTHOR AUTHOR'S ORGANIZ ATION 05/06/2025 [facility] Source Comments (unrecognize d section and content) In the event this informatio n is protected by the Federal Confidentiality of Alcohol and Drug Abuse Patient Records regulations: The Federal rules restrict any use of the information to criminally investigate or prosecute any alcohol or drug abuse patient.[facility] the event this information is protected by the Federal Confidentiality of Alcohol and Drug Abuse Patient Records regulations: The Federal rules restrict any use of the information to criminally investigate or prosecute any alcohol or drug abuse patient.[facility] the event this information is protected by the Federal Confidentiality of Alcohol and Drug Abuse Patient Records regulations: The Federal rules restrict any use of the information to criminally investigate or prosecute any alcohol or drug abuse patient.[facility] the event this information is protected by the Federal Confidentiality of Alcohol and Drug Abuse Patient Records regulations: The Federal rules restrict any use of the information to criminally investigate or prosecute any alcohol or drug abuse patient.[facility] the event this information is protected by the Federal Confidentiality of Alcohol and Drug Abuse Patient Records regulations: The Federal rules restrict any use of the information to criminally investigate or prosecute any alcohol or drug abuse patient.[facility] the event this information is protected by the Federal Confidentiality of Alcohol and Drug Abuse Patient Records regulations: The Federal rules restrict any use of the information to criminally investigate or prosecute any alcohol or drug abuse patient.[facility] the event this information is protected by the Federal Confidentiality of Alcohol and Drug Abuse Patient Records regulations: The Federal rules restrict any use of the information to criminally investigate or prosecute any alcohol or drug abuse patient.[facility] the event this information is protected by the Federal Confidentiality of Alcohol and Drug Abuse Patient Records regulations: The Federal rules restrict any use of the information to criminally investigate or prosecute any alcohol or drug abuse patient.[facility] the event this information is protected by the Federal Confidentiality of Alcohol and Drug Abuse Patient Records regulations: The Federal rules restrict any use of the information to criminally investigate or prosecute any alcohol or drug abuse patient.[facility] the event this information is protected by the Federal Confidentiality of Alcohol and Drug Abuse Patient Records regulations: The Federal rules restrict any use of the information to criminally investigate or prosecute any alcohol or drug abuse patient.[facility] the event this information is protected by the Federal Confidentiality of Alcohol and Drug Abuse Patient Records regulations: The Federal rules restrict any use of the information to criminally investigate or prosecute any alcohol or drug abuse patient.[facility] the event this information is protected by the Federal Confidentiality of Alcohol and Drug Abuse Patient Records regulations: The Federal rules restrict any use of the information to criminally investigate or prosecute any alcohol or drug abuse patient.[facility] the event this information is protected by the Federal Confidentiality of Alcohol and Drug Abuse Patient Records regulations: The Federal rules restrict any use of the information to criminally investigate or prosecute any alcohol or drug abuse patient.[facility] the event this information is protected by the Federal Confidentiality of Alcohol and Drug Abuse Patient Records regulations: The Federal rules restrict any use of the information to criminally investigate or prosecute any alcohol or drug abuse patient.[facility] the event this information is protected by the Federal Confidentiality of Alcohol and Drug Abuse Patient Records regulations: The Federal rules restrict any use of the information to criminally investigate or prosecute any alcohol or drug abuse patient.[facility] the event this information is protected by the Federal Confidentiality of Alcohol and Drug Abuse Patient Records regulations: The Federal rules restrict any use of the information to criminally investigate or prosecute any alcohol or drug abuse patient.[facility] the event this information is protected by the Federal Confidentiality of Alcohol and Drug Abuse Patient Records regulations: The Federal rules restrict any use of the information to criminally investigate or prosecute any alcohol or drug abuse patient.[facility] the event this information is protected by the Federal Confidentiality of Alcohol and Drug Abuse Patient Records regulations: The Federal rules restrict any use of the information to criminally investigate or prosecute any alcohol or drug abuse patient.[facility] the event this information is protected by the Federal Confidentiality of Alcohol and Drug Abuse Patient Records regulations: The Federal rules restrict any use of the information to criminally investigate or prosecute any alcohol or drug abuse patient.[facility] Care Teams (unrecognized sec tion and content) Rate Reviewer Relationship Specialty Start Date End Date Pcp, No PCP - General 01/30/22 08/17/22 Rate Reviewer Relationship Specialty Start Date End Date Pcp, No PCP - General 01/30/22 08/17/22 Rate Reviewer Relationship Specialty Start Date End Date Jared Evans MD [address] [place] [address] PCP - General Family Medicine 05/18/22 Rate Reviewer Relationship Specialty Start Date End Date Jared Evans MD [address] [place] [phone] PCP - General Family Medicine 05/18/22 Rate Reviewer Relationship Specialty Start Date End Date Jared Evans MD [address] [place] [phone] PCP - General Family Medicine 05/18/22 Rate Reviewer Relationship Specialty Start Date End Date Jared Evans MD [address] [place] [address] PCP - General 03/06/20 Rate Reviewer Relationship Specialty Start Date End Date Jraed Evans MD [address] [place] [address] PCP - General 03/06/20 Rate Reviewer Relationship Specialty Start Date End Date Jared Evans MD [address] [place] [address] PCP - General 03/06/20 Rate Reviewer Relationship Specialty Start Date End Date Jared Evans MD [address] [place] [address] PCP - General 03/06/20 Rate Reviewer Relationship Specialty Start Date End Date Jared Evans MD [address] [place] [address] PCP - General 03/06/20 Rate Reviewer Relationship Specialty Start Date End Date Jared Evans MD [address] [place] [address] PCP - General 03/06/20 Rate Reviewer Relationship Specialty Start Date End Date Jared Evans MD [address] [place] [address] PCP - General 03/06/20 Rate Reviewer Relationship Specialty Start Date End Date Jared Evans MD [address] [place] [address] PCP - General 03/06/20 Rate Reviewer Relationship Specialty Start Date End Date Jared Evans MD [address] [place] [address] PCP - General 03/06/20 Rate Reviewer Relationship Specialty Start Date End Date Jared Evans MD [address] [place] [address] PCP - General 03/06/20 Rate Reviewer Relationship Specialty Start Date End Date Jared Evans MD [address] [place] [address] PCP - General 03/06/20 Rate Reviewer Relationship Specialty Start Date End Date Jared Evans MD [address] [place] [address] PCP - General 03/06/20 Rate Reviewer Relationship Specialty Start Date End Date Jared Evans MD [address] [place] [address] PCP - General 03/06/20 Henok Hernandez PA-C [address] [address] [employer] 04/19/24 Rate Reviewer Relationship Specialty Start Date End Date Jared Evans MD [address] [place] [address] PCP - General 03/06/20 Henok Hernandez PA-C [address] [place] [address] [employer] 04/19/24 Rate Reviewer Relationship Specialty Start Date End Date Jared Evans MD [address] [place] [address] PCP - General 03/06/20 Henok Hernandez PA-C [address] [address] Physician [employer] Physician [employer] 04/19/24 Rate Reviewer Relationship Specialty Start Date End Date Jared Evans MD [address] [place] [address] PCP - General 03/06/20 Henok Hernandez PA-C [address] [address] Physician [employer] Physician [employer] 04/19/24 Rate Reviewer Relationship Specialty Start Date End Date Jared Evans MD [address] [place] [address] PCP - General 03/06/20 Henok Hernandez PA-C [address] [address] Physician [employer] Physician [employer] 04/19/24 Rate Reviewer Relationship Specialty Start Date End Date Jared Evans MD [address] [place] [address] PCP - General 03/06/20 Henok Lantigua PA-C [address] [address] Physician [employer] Physician [employer] 04/19/24 Rate Reviewer Relationship Specialty Start Date End Date Jared Evans MD [address] [place] [address] PCP - General 03/06/20 Henok Lantigua PA-C [address] [address] [employer]ician [employer] 04/19/24 Rate Reviewer Relationship Specialty Start Date End Date Jared Evans MD [address] [place] [id number] PCP - General Family Medicine 05/18/22 Rate Reviewer Relationship Specialty Start Date End Date Jared Evans MD [address] [place] [address] PCP - General Family Medicine 05/18/22 Rate Reviewer Relationship Specialty Start Date End Date Jared Evans MD [address] [place] [address] PCP - General 03/06/20 Henok Lantigua PA-C [address] [place] [address] [employer] 04/19/24 Rate Reviewer Relationship Specialty Start Date End Date Jared Evans MD [address] [place] [address] PCP - General Family Medicine 05/18/22 Rate Reviewer Relationship Specialty Start Date End Date Jared Evans MD [address] [place] [address] PCP - General Family Medicine 05/18/22 Rate Reviewer Relationship Specialty Start Date End Date Jared Evans MD [address] [place] [address] PCP - General Family Medicine 05/18/22 Rate Reviewer Relationship Specialty Start Date End Date Jared Evans MD [address] [place] [address] PCP - General Family Medicine 05/18/22 Rate Reviewer Relationship Specialty Start Date End Date Jared Evans MD [address] [place] [address] PCP - General Family Medicine 05/18/22 Rate Reviewer Relationship Specialty Start Date End Date Jared Evans MD [address] [place] [address] PCP - General 03/06/20 Henok Lantigua PA-C [address] [address] [employer] 04/19/24 Rate Reviewer Relationship Specialty Start Date End Date Jared Evans MD [address] [place] [address] PCP - General Family Medicine 05/18/22 Rate Reviewer Relationship Specialty Start Date End Date Jared Evans MD [address] [place] [address] PCP - General Family Medicine 05/18/22 Rate Reviewer Relationship Specialty Start Date End Date Jared Evans MD [address] [place] [address] PCP - General Family Medicine 05/18/22 Rate Reviewer Relationship Specialty Start Date End Date Jared Evans MD [address] [place] [address] PCP - General 03/06/20 Henok Lantigua PA-C [address] [address] Phys[employer]ician [employer] 04/19/24 Rate Reviewer Relationship Specialty Start Date End Date Jared Evans MD [facility] [place] [place] [address] PCP - General 03/06/20 Henok Lantigua PA-C [address] [facility] [address] [place] [address] [employer] 04/19/24 Rate Reviewer Relationship Specialty Start Date End Date Jared Evans MD [facility] [place] [address] PCP - General 03/06/20 Henok Lantigua PA-C 95 [facility] [address] [place] [address] [employer] 04/19/[address] [address] Jail Facility 08/22/24 Rate Reviewer Relationship Specialty Start Date End Date Jared Evans MD [address] [place] [address] PCP - General Family Medicine 05/18/22 Rate Reviewer Relationship Specialty Start Date End Date Jared Evans MD [address] [place] [address] PCP - General Family Medicine 05/18/22 Team [...] October 08, 2024 End: October 08, 2024 Rate Reviewer Relationship Specialty Start Date End Date Jared Evans MD [facility] [place] [address] PCP - General 03/06/20 Henok Lantigua PA-C [address] [address] Phys[employer] Phys[employer] 04/19/[address] [place] [address] Jail Facility 08/22/24 Rate Reviewer Relationship Specialty Start Date End Date Jared Evans MD [address] [place] [address] PCP - General 03/06/20 Henok Lantigua PA-C [address] [place] [address] Physician [employer] 04/19/24 [facility] [address] [place] [address] Jail Facility 08/22/24 Rate Reviewer Relationship Specialty Start Date End Date Jared Evans MD [address] [place] [address] PCP - General 03/06/20 Henok Lantigua PA-C [address] [address] Physician [employer] Physician [employer] 04/19/24 [facility] [address] [place] [address] Jail Facility 08/22/24 Rate Reviewer Relationship Specialty Start Date End Date Jared Evans MD [address] [place] [address] PCP - General 03/06/20 Henok Lantigua PA-C [address] [address] Physician [employer] 04/19/24 [facility] [address] [place] [address] Jail Facility 08/22/24 Rate Reviewer Relationship Specialty Start Date End Date Jared Evans MD [address] [place] [address] PCP - General 03/06/20 Henok Lantigua PA-C [address] [place] [address] Physician [employer] 04/19/24 [facility] [address] [place] [address] Jail Facility 08/22/24 Rate Reviewer Relationship Specialty Start Date End Date Megan Beebe [address] [facility] [address] [place] [phone] PCP - General Internal Medicine 12/13/24 Henok Lantigua PA-C [address] [place] [address] Phys[employer] 04/19/24 [facility] [address] [place] [address] Jail Facility 08/22/24 Rate Reviewer Relationship Specialty Start Date End Date Megan Beebe [address] [facility] [address] [place] [address] PCP - General Internal Medicine 12/13/24 Henok Lantigua PA-C [address] [place] [address] Phys[employer] 04/19/24 Kristyn Blankenship MD [address] [place] [address] Consulting Physician Vascular Surgery 12/24/24 [facility] [address] [place] [address] Jail Facility 08/22/24 Rate Reviewer Relationship Specialty Start Date End Date Jared Evans MD [address] [place] [address] PCP - General Family Medicine 05/18/22 Rate Reviewer Relationship Specialty Start Date End Date Jared Evans MD [address] [place] [address] PCP - General Family Medicine 05/18/22 Rate Reviewer Relationship Specialty Start Date End Date Megan Beebe [address] [place] [phone] PCP - General Internal Medicine 12/13/24 Henok Lantigua PA-C [address] [place] [address] [employer] 04/19/24 Kristyn Blankenship MD [address] [place] [address] Consulting Physician Vascular Surgery 12/24/24 [facility] [address] [place] [address] Jail Facility 08/22/24 Rate Reviewer Relationship Specialty Start Date End Date Megan Beebe [address] [place] [phone] PCP - General Internal Medicine 12/13/24 Henok Lantigua PA-C [address] [place] [address] Physician [employer] Physician [employer] 04/19/24 Kristyn Blankenship MD [address] [place] [address] Consulting Physician Vascular Surgery 12/24/24 Andre Patel MD [address] [place] [address] Consulting Physician Hematology and Oncology 03/15/[address] [address] Jail Facility 08/22/24 Scheduled Active and Recently Administ [...] sedation for opioid reversal - MUST notify senior online marketing manager provider immediately after first dose, may [...] 1342 2048 (See Alternative - Provider: Norma Davis, RADHA) 2019 (Given - Provider: Norma Davis RN) oxyCODONE (Roxicodone) immediate release tablet 5 mg(Linked Group 3) 5 mg, Oral, Every 4 hours PRN, severe pain (7-10), Starting on Maida 04/05/24 at 1342 2048 (Given - Provider: Norma Davis, RADHA) 2019 (See Alternative - Provider: Norma Davis [...] Cecilia Lopes RN)2028 (Given - Provider: Luis Murry, RADHA) 0907 (Given - Provider: Cecilia Lopes RN)1444 [...] RN)2028 (Given - Provider: Luis Murry, RADHA) 0914 (Given - Provider: Cecilia Lopes RN)1447 (Given - Provider: Cecilia oLpes RN)2105 (Given - Provider: Luis Murry RN) [...] Lopes, RADHA) 0349 (Given - Provider: Luis Murry RN) [...] Provider: Cecilia Lopes, RADHA)2029 (Given - Provider: Lusi Murry RN) 0000 (Given - Provider: Luis [...] 0542 (New Bag - Provider: Arin Jama, RADHA)0642 (Stopped - Provider: Maritza Armstrong RN) sodium [...] 0918 (New Bag - Provider: Cecilia Lopes, RN) PRN Medication Order 07/05/2024 07/06/2024 07/07/2024 [...] hours. 0918 (See Alternative - Provider: Cecilia Loeps, RADHA) acetaminophen (Tylenol) tablet 650 mg(Linked Group [...] RADHA)0724 (See Alternative - Provider: La Avila, RN) HYDROmorphone (Dilaudid) injection 0.5 mg(Linked Group [...] Arin Jama RN)1005 (Given - Provider: De Lopez, RADHA) 1217 (Given - Provider: Cecilia Lopes, RADHA)2108 [...] on Maida 24 at 0523, 1st Line. If inadequate response [...] line interruptions / long duration, Starting on Madia 07/05/24 at 0427, For piggyback infusion, administer [...] Mp Fallon RN)2136 (Given - Provider: Wanda Mendoza, RADHA) 0944 (Given - Provider: Cici Perez RN)2146 [...] BE BASED ON THE PRIMARY CLINICAL RECORDS. [facility], [facility]. provides no warranty or guarantee of the accuracy or completeness of information in this document.
[2025-05-09 08:50] LABS: INR Fingerstick 2.4
== END ==
LOC: OLS.SANC 05:00
PROVIDERS: Visit Provider Internal Medicine
DX: Z79.01 Long term (current) use of anticoagulants (principal)
CPT/HCPCS: 36416; 85610

== ENCOUNTER → 2025-05-13 05:00 | Outpatient (REF) | payer MEDICARE, SELFPAY ==
[2025-05-13 08:42] LABS: Prothrombin Time (Protime)PT. 23.2 SECONDS (11.7-14.9)
== END ==
LOC: OLS.SANC 05:00
PROVIDERS: Visit Provider Internal Medicine
DX: E11.9 Type 2 diabetes mellitus without complications (principal)
CPT/HCPCS: 36415; 85610

== ENCOUNTER → 2025-05-27 05:00 | Outpatient (REF) | payer MEDICARE, SELFPAY ==
[2025-05-27 07:49] LABS: INR Fingerstick 2.0
== END ==
LOC: OLS.SANC 05:00
PROVIDERS: Visit Provider Internal Medicine
DX: Z79.01 Long term (current) use of anticoagulants (principal)
CPT/HCPCS: 36416; 85610

== ENCOUNTER → 2025-06-07 | Outpatient (REF) | payer MEDICARE, SELFPAY ==
--- OUTSIDE RECORDS SUMMARY | 2025-06-07 04:07 | XMS RPT_ITS | CCD ---
Author Organization [facility] Care Team Providers Care Government Affairs Specialist Name Role Phone Maryuri King Primary Care Provider [phone] Jared Evans Primary Care Provider [phone] Pcp, No Primary Care Provider UnavailJared Mckinnon MD Primary Care Provider [phone] BERNIE BIRD Admitting Unavailable IWONA CHU Attending Unavailable MING OLSON Consulting Unavailable SIM ELIZABETH Attending Unavailable PRIMO DODD Referring Unavailable Jared Evans MD Primary Care Provider Jared Evans MD Primary Care Provider [phone] Henok Hernandez PA-C Unavailable Henok Lantigua PA-C Unavailable Jared Evans MD Primary Care Provider [phone] SYSTEM, PROVIDER NOT IN Referring Unavaila Mgean Rice Attending Provider Unavailab Megan Porras Referring [...] Primary Care Unavailable SELF Referring Unavailable EVANS, WILLIAMSPORT N Primary Care Unavailable SELF Referring Unavailable EVANS, WILLIAMSPORT N Primary Care Unavailable MAMMO, SAVANA A [...] Unavailable EVANS, JARED Primary Care Unavailable MARIANA KNIG Referring Unavailable EVANS, JARED Primary Care Unavailable [...] JORDIN Attending Unavailable AMANDA, ANDRE Consulting Unavailable ANJUI, PRATIBHA Admitting Unavailable EVANS, JARED Primary Care [...] Referring Unavailable Katsaros OLS, Peter Attending Unavailable Katsaros, Peter Referring Unavailable Katsaros, Peter Attending Unavailable Katsaros OLS, Peter Attending Unavailable Katsaros OLS, Peter Attending Unavailable Katsaros OLS, Peter Attending Unavailable Allergies Allergy Classification Reported Allergen(s) Allergy Type Date of Onset Reaction(s) Facility (20 sources) Amoxicillin Drug Allergy 0 [place], [place] (20 sources) fluticasone / salmeterol Drug Allergy 0 Intolerance [place], [place] (20 sources) Acetaminophen / oxyCODONE; Translations: [OXYCODONE-ACETAM INOPHEN] Drug Allergy 2 Itching [facility] Repository (9 sources) Ampicillin; Translations: [AMPICILLIN] Drug Allergy 4 Unknown [facility] (13 sources) Amoxicillin-Pot Clavulanate Drug Allergy 5 [facility] (1 source) FLUTICASONE PROPION-SALMETERO L; Translations: [FLUTICASONE PROPION-SALMETERO L] Propensity to adverse reactions to drug (disorder) 0 [facility] Repository Medications Current Medications Medication Drug [...] Comment on above: Take 1 tablet by [facility] every 8 hours as needed for pain for up to 3 days. [id number] 200 actuat albuterol 0.09 mg/actuat metered dose [...] the event of a Fluress shortage, administer Atalissa-Fluor 1 drop into both eyes as directed for applanation tonometry, [facility] MED ORDERS Start: 07-12-2024 End: 07-12-2024 fluorescein-benoxinate 0.3-0 .4 % 1 Drop (FLURESS) bisacodyl 5 mg delayed release oral tablet (4 sources) Stimulant Laxative bisacodyl (Du lcolax) 10 MG suppository Insert into the rectum Daily as needed for constipation. Active take 1 tablet by [facility] every twenty-four hours as needed for constipation [...] Comment on above: Take 2 tablets by [facility] every 12 hours for 3 days, [...] Comment on above: Take 1 tablet by [facility] every 12 hours for 7 [...] for dry skin. Active lactobacillus rhamnosus gg [id number] unt oral capsule (2 sources) Start: 06-29-20 End: 07-29-19 take 1 capsule by mouth once daily lactobacillus rhamnosus (CULTURELLE) 10 billion cell capsule Take 1 capsule by mouth once daily. 30 capsule 0 06/29/2022 07/29/2022 Active Comment on above: Take 1 capsule by [facility] once daily. lidocaine 0.04 mg/mg medicated [...] 0059, Administer for dilation [facility] FROM LIGHT, [facility] Start: 07-16-2024 End: 07-16-2024 PHENYLephrine 2.5 % 1 Drop ( AK-DILATE, KEL-SYNEPHRINE) Start: 07-16-2024 End: 07-16-2024 1 Drop, RIGHT EYE, DIRECT ED, Starting on Tue07/16/24 at 0900, Until Tue07/16/24 at 2059, Administer for dilation PROTECT FROM LIGHT Start: 07-09-2024 End: 07-09-2024 PHENYLephrine 2.5 % 1 Drop ( AK-DILATE, KEL-SYNEPHRINE) polyethylene glycol 3350 49497 mg powder for oral solution (11 sources) [...] g, Oral, Daily PRN, constipation, Starting on Tue07/05/24 at 1324, 1st line for treatment of [...] lower extremity (HCC) Take as directed by [facility] Antico[facility] Clinic (90 tablets = 90 day [...] lower extremity (HCC) Take as directed by [facility] Anticoagulation Clinic (45 tablets= 30 day supply) 45 tablet 1 04/27/2024 Active Start: 04-09-2024 7.5 mg, Oral, Once Warfarin, On Maida 04/12/24 at 1700, For 1 dose Start: 04-07-2024 warfarin (Coum jay jay) 5 MG tablet Take 1 tablet (5mg) on 04/13 in the evening Take 1.5 tablets (7.5mg) on 04/14 Take 1 tablet (5mg) on 04/15 Follow up with [facility] pharmacy for further dosing 30 tablet 04/13/2024 [...] sodium chloride 0.9 % 100 mL IVPB (Add-Dundee) (2 sources) Start: End: take 3000 mg intravenously every six hours 3,000 mg, IntraVENous, at 200 mL/hr, Administer over 30 Minutes, Every 6 hours, First dose on Tue08/03/24 at 1200, For 18 doses, ADD-Dundee bag, Suspected Indication (Select all that apply): [...] Anesthetic Start: 03-07-2020 End: 03-07-2020 lidocaine-EPINEPHrine 1 percent-1:[id number] injection 8 mL ergocalciferol 1.25 mg oral capsule (3 sources) Provitamin D2 Compound End: 07-05-2024 take 1 capsule by mouth every week ergocalciferol (Vitamin D2) 1.25 MG (21753 UT) capsule Take 1.25 mg by mouth [...] puff by mouth daily. 05/19/2023 Active Start: 11-02-2023 Trelegy Ellipt a 100-62.5-25 MCG/ACT aerosol powder [...] mg, Oral, Daily, Fir st dose on Amida 07/05/24 at 1615 Start: 06-20-2024 End: 07-09-2024 [...] Comment on above: Take 1 tablet by [facility] twice daily before meals (0600/1600). [...] on Tue04/03/24 at 1820 sodium zirconium cyclosilicate 73721 mg powder for oral suspension (2 sources) [...] system] 12-05-2024 Episodic Other aftercare (4 sources) senior living (current) use of anticoagulants; Translations: [senior living (current) use of anticoagulants] Onset: 2 Episodic [...] sources) Long-term current use of anticoagulant; Translations: [senior living (current) use of anticoagulants] Onset: 0 03-07-2020 Episodic Other aftercare (2 sources) Encounter for surgical aftercare following surgery on the circulatory system; Translations: [Encounter for surgical aftercare following surgery on the circulatory system] Onset: 5 Episodic Other aftercare (1 source) Other predatory animal exterminator (current) drug therapy; Translations: [Other assisted (current) [...] right foot, limited to breakdown of skin ([facility]) 12-05-2024 Unclassified (4 sources) PAD (peripheral artery disease) ([facility]) 12-05-2024 Viral infection (20 sources) Disease caused by 2019-nCoV; Translations: [COVID-19] Onset: 2 06-16-2022 Episodic Results Test Name Value Interpretation Reference Range Facility Protime w/INR Fingerstickon 05-27-2025 INR Coag (PPP) [Relative time] 2.0 {INR} Normal [facility] Comment on above: Result Comment: Crit ical Value > 4.0 Performed By: #### L 300.3900 #### [facility] [address] [place], [place], [id number] Protime Coagsen 22.2 SEC High 11.7-14.9 [facility] Comment on above: Performed By: #### L 300.3900 #### [facility] [address] [place], [address] Prothrombin Time w/INRon INR Coag (PPP) [Relative time] 2.0 {INR} Normal [facility] Comment on above: Order Comment: 104-1 Performed By: #### L 9200.0000 #### [facility] [address] [place], [address] PT Coag (PPP) [Time] 23.2 s High 11.7-14.9 [facility] Comment on above: Order Comment: 104-1 Performed By: #### L 9200.0000 #### [facility] [address] [place], [address] Protime w/INR Fingerstickon 05-09-2025 INR Coag (PPP) [Relative time] 2.4 {INR} Normal [facility] Comment on above: Result Comment: Crit ical Value > 4.0 Performed By: #### L 300.3900 #### [facility] [address] [place], [address] Protime Coagsen 25.6 SEC High 11.7-14.9 [facility] Comment on above: Performed By: #### L 300.3900 #### [facility] [address] [place], [address] Prothrombin Time w/INRon INR Coag (PPP) [Relative time] 4.8 {INR} Invalid Interpretation Code [facility] Comment on above: Order Comment: 104-1 Performed By: #### L 300.3900 #### [facility] [address] [place], [address] PT Coag (PPP) [Time] 46.2 s High 11.7-14.9 [facility] Comment on above: Order Comment: 104-1 Performed By: #### L 300.3900 #### [facility] [address] [place], [address] Protime w/INR Fingerstickon 05-06-2025 INR Coag (PPP) [Relative time] 5.5 {INR} Invalid Interpretation Code [facility] Comment on above: Result Comment: Crit ical Value > 4.0 Performed By: #### L 9200.0000 #### [facility] [address] [place], [address] Protime Coagsen 53.4 SEC High 11.7-14.9 [facility] Comment on above: Performed By: #### L 9200.0000 #### [facility] [address] [place], [address] Prothrombin Time w/INRon INR Coag (PPP) [Relative time] 3.9 {INR} Normal [facility] Comment on above: Order Comment: 104-1 Performed By: #### L 300.3900 #### [facility] [address] [place], [address] PT Coag (PPP) [Time] 39.5 s High 11.7-14.9 [facility] Comment on above: Order Comment: 104-1 Performed By: #### L 300.3900 #### [facility] [address] [place], [address] Protime w/INR Fingerstickon 04-29-2025 INR Coag (PPP) [Relative time] 4.1 {INR} Invalid Interpretation Code [facility] Comment on above: Result Comment: Crit ical Value > 4.0 Performed By: #### L 300.3900 #### [facility] [address] [place], [address] Protime Coagsen 41.7 SEC High 11.7-14.9 [facility] Comment on above: Performed By: #### L 300.3900 #### [facility] [address] [place], [address] Basic Metabolic Profile (BMP )on 04-04-2025 BUN/CRE 19.9 RATIO Normal 10-20 [facility] Comment on above: Order Comment: 104-1 Performed By: #### L 300.3900 #### [facility] [address] [place], [address] Calcium [Mass/Vol] 8.9 mg/dL Normal 7.6-11.0 [facility] Comment on above: Order Comment: 104-1 Performed By: #### L 300.3900 #### [facility] [address] [place], [address] Chloride [Moles/Vol] 109 mmol/L High 98-108 [facility] Comment on above: Order Comment: 104-1 Performed By: #### L 300.3900 #### [facility] [address] [place], [address] CO2 [Moles/Vol] 20.4 mmol/L Low 21.0-32.0 [facility] Comment on above: Order Comment: 104-1 Performed By: #### L 300.3900 #### [facility] [address] [place], [address] Creatinine [Mass/Vol] 0.98 mg/dL Normal 0.70-1.20 [facility] Comment on above: Order Comment: 104-1 Performed By: #### L 300.3900 #### [facility] [address] [place], [address] GAP 10 Normal 5-15 [facility] Comment on above: Order Comment: 104-1 Performed By: #### L 300.3900 #### [facility] [address] [place], [address] GFR/1.73 sq M.predicted among non-blacks MDRD (S/P/Bld) [Vol rate/Area] 56 mL/min/{1.73_m2} Low >60 [facility] Comment on above: Order Comment: 104-1 Result Comment: mL/m in/1.73m2 CKD-EPI Creatinine Equation (2020) Performed By: #### L 300.3900 #### [facility] [address] [place], [address] Glucose [Mass/Vol] 87 mg/dL Normal 70-99 [facility] Comment on above: Order Comment: 104-1 Performed By: #### L 300.3900 #### [facility] [address] [place], [address] Potassium [Moles/Vol] 5.0 mmol/L Normal 3.3-5.1 [facility] Comment on above: Order Comment: 104-1 Performed By: #### L 300.3900 #### [facility] [address] [place], [address] Sodium [Moles/Vol] 139 mmol/L Normal 133-145 [facility] Comment on above: Order Comment: 104-1 Performed By: #### L 300.3900 #### [facility] [address] [place], [address] Urea nitrogen [Mass/Vol] 20 mg/dL High 4-19 [facility] Comment on above: Order Comment: 104-1 Performed By: #### L 300.3900 #### [facility] [address] [place], [address] CBC-Complete Blood Cnt No Di ffon 04-04-2025 Erythrocyte distribution width (RBC) [Ratio] 13.6 % Normal 11.6-14.6 [facility] Comment on above: Order Comment: 104-1 Performed By: #### L 300.3900 #### [facility] [address] [place], [address] Hematocrit (Bld) [Volume fraction] 32.6 % Low 37-47 [facility] Comment on above: Order Comment: 104-1 Performed By: #### L 300.3900 #### [facility] [address] [place], [address] Hemoglobin (Bld) [Mass/Vol] 10.7 g/dL Low 12.0-15.0 [facility] Comment on above: Order Comment: 104-1 Performed By: #### L 300.3900 #### [facility] [address] [place], [address] MCH (RBC) [Entitic mass] 30.0 pg Normal 27.0-32.0 [facility] Comment on above: Order Comment: 104-1 Performed By: #### L 300.3900 #### [facility] [address] [place], [address] MCHC (RBC) [Mass/Vol] 32.8 g/dL Normal 32-36 [facility] Comment on above: Order Comment: 104-1 Performed By: #### L 300.3900 #### [facility] [address] [place], [address] MCV (RBC) [Entitic vol] 91.3 fL Normal 81-99 [facility] Comment on above: Order Comment: 104-1 Performed By: #### L 300.3900 #### [facility] [address] [place], [address] Platelet mean volume (Bld) [Entitic vol] 9.8 fL Normal 6.2-12.0 [facility] Comment on above: Order Comment: 104-1 Performed By: #### L 300.3900 #### [facility] [address] [place], [address] Platelets (Bld) [#/Vol] 259 10*3/uL Normal 150-450 [facility] Comment on above: Order Comment: 104-1 Performed By: #### L 300.3900 #### [facility] [address] [place], [address] RBC (Bld) [#/Vol] 3.57 10*6/uL Low 4.2-5.4 [facility] Comment on above: Order Comment: 104-1 Performed By: #### L 300.3900 #### [facility] [address] [place], [address] RDW SD 46.1 fl High 35.1-43.9 [facility] Comment on above: Order Comment: 104-1 Performed By: #### L 300.3900 #### [facility] [address] [place], [address] WBC (Bld) [#/Vol] 4.2 10*3/uL Low 4.4-11.0 [facility] Comment on above: Order Comment: 104-1 Performed By: #### L 300.3900 #### [facility] [address] [place], [address] Potassiumon 04-02-2025 Potassium [Moles/Vol] 5.3 mmol/L High 3.3-5.1 [facility] Comment on above: Order Comment: 104-1 Performed By: #### L 300.3900 #### [facility] [address] [place], [address] Basic Metabolic Profile (BMP )on 03-28-2025 BUN/CRE 17.4 RATIO Normal 10-20 [facility] Comment on above: Order Comment: 104.1 Performed By: #### L 9200.0000 #### [facility] [address] [place], [address] Calcium [Mass/Vol] 9.0 mg/dL Normal 7.6-11.0 [facility] Comment on above: Order Comment: 104.1 Performed By: #### L 9200.0000 #### [facility] [address] [place], [address] Chloride [Moles/Vol] 108 mmol/L Normal 98-108 [facility] Comment on above: Order Comment: 104.1 Performed By: #### L 9200.0000 #### [facility] [address] [place], [address] CO2 [Moles/Vol] 21.1 mmol/L Normal 21.0-32.0 [facility] Comment on above: Order Comment: 104.1 Performed By: #### L 9200.0000 #### [facility] [address] [place], [address] Creatinine [Mass/Vol] 0.99 mg/dL Normal 0.70-1.20 [facility] Comment on above: Order Comment: 104.1 Performed By: #### L 9200.0000 #### [facility] [address] [place], [address] GAP 9 Normal 5-15 [facility] Comment on above: Order Comment: 104.1 Performed By: #### L 9200.0000 #### [facility] [address] [place], [address] GFR/1.73 sq M.predicted among non-blacks MDRD (S/P/Bld) [Vol rate/Area] 56 mL/min/{1.73_m2} Low >60 [facility] Comment on above: Order Comment: 104.1 Result Comment: mL/m in/1.73m2 CKD-EPI Creatinine Equation (2020) Performed By: #### L 9200.0000 #### [facility] [address] [place], [address] Glucose [Mass/Vol] 88 mg/dL Normal 70-99 [facility] Comment on above: Order Comment: 104.1 Performed By: #### L 9200.0000 #### [facility] [address] [place], [address] Potassium [Moles/Vol] 5.2 mmol/L High 3.3-5.1 [facility] Comment on above: Order Comment: 104.1 Performed By: #### L 9200.0000 #### [facility] [address] [place], [address] Sodium [Moles/Vol] 138 mmol/L Normal 133-145 [facility] Comment on above: Order Comment: 104.1 Performed By: #### L 9200.0000 #### [facility] [address] [place], [address] Urea nitrogen [Mass/Vol] 17 mg/dL Normal 4-19 [facility] Comment on above: Order Comment: 104.1 Performed By: #### L 9200.0000 #### [facility] [address] [place], [address] CBC-Complete Blood Cnt No Di ffon 03-28-2025 Erythrocyte distribution width (RBC) [Ratio] 13.7 % Normal 11.6-14.6 [facility] Comment on above: Order Comment: 104.1 Performed By: #### L 9200.0000 #### [facility] [address] [place], [address] Hematocrit (Bld) [Volume fraction] 31.6 % Low 37-47 [facility] Comment on above: Order Comment: 104.1 Performed By: #### L 9200.0000 #### [facility] [address] [place], [address] Hemoglobin (Bld) [Mass/Vol] 10.3 g/dL Low 12.0-15.0 [facility] Comment on above: Order Comment: 104.1 Performed By: #### L 9200.0000 #### [facility] [address] [place], [address] MCH (RBC) [Entitic mass] 29.7 pg Normal 27.0-32.0 [facility] Comment on above: Order Comment: 104.1 Performed By: #### L 9200.0000 #### [facility] [address] [place], [address] MCHC (RBC) [Mass/Vol] 32.6 g/dL Normal 32-36 [facility] Comment on above: Order Comment: 104.1 Performed By: #### L 9200.0000 #### [facility] [address] [place], [address] MCV (RBC) [Entitic vol] 91.1 fL Normal 81-99 [facility] Comment on above: Order Comment: 104.1 Performed By: #### L 9200.0000 #### [facility] [address] [place], [address] Platelet mean volume (Bld) [Entitic vol] 10.0 fL Normal 6.2-12.0 [facility] Comment on above: Order Comment: 104.1 Performed By: #### L 9200.0000 #### [facility] [address] [place], [address] Platelets (Bld) [#/Vol] 265 10*3/uL Normal 150-450 [facility] Comment on above: Order Comment: 104.1 Performed By: #### L 9200.0000 #### [facility] [address] [place], [address] RBC (Bld) [#/Vol] 3.47 10*6/uL Low 4.2-5.4 [facility] Comment on above: Order Comment: 104.1 Performed By: #### L 9200.0000 #### [facility] [address] [place], [address] RDW SD 45.8 fl High 35.1-43.9 [facility] Comment on above: Order Comment: 104.1 Performed By: #### L 9200.0000 #### [facility] [address] [place], [address] WBC (Bld) [#/Vol] 5.3 10*3/uL Normal 4.4-11.0 [facility] Comment on above: Order Comment: 104.1 Performed By: #### L 9200.0000 #### [facility] [address] [place], [address] Prothrombin Time w/INRon INR Coag (PPP) [Relative time] 2.2 {INR} Normal [facility] Comment on above: Order Comment: 104.1 Performed By: #### L 9200.0000 #### [facility] [address] [place], [address] PT Coag (PPP) [Time] 24.5 s High 11.7-14.9 [facility] Comment on above: Order Comment: 104.1 Performed By: #### L [id number] #### [facility] [address] [place], [address] Progress Noteon 03-15-2025 Progress Note Normal [facility] Protime w/INR Fingerstickon 03-04-2025 INR Coag (PPP) [Relative time] 2.3 {INR} Normal [facility] Comment on above: Result Comment: Crit ical Value > 4.0 Performed By: #### L 9200.0000 #### [facility] [address] [place], [address] Protime Coagsen 24.7 SEC High 11.7-14.9 [facility] Comment on above: Performed By: #### L 9200.0000 #### [facility] [address] [place], [address] 36on 02-27-2025 36 Letter mailed to patient [facility] 36on 02-26-2025 36 Normal [facility] Protime w/INR Fingerstickon 02-25-2025 INR Coag (PPP) [Relative time] 2.1 {INR} Normal [facility] Comment on above: Result Comment: Crit ical Value > 4.0 Performed By: #### L 9200.0000 #### [facility] [address] [place], [address] Protime Coagsen 23.3 SEC High 11.7-14.9 [facility] Comment on above: Performed By: #### L 9200.0000 #### [facility] [address] [place], [address] Basic Metabolic Profile (BMP )on 02-18-2025 BUN/CRE 22.7 RATIO High 10-20 [facility] Comment on above: Performed By: #### L 9200.0000 #### [facility] [address] [place], [address] Calcium [Mass/Vol] 9.2 mg/dL Normal 7.6-11.0 [facility] Comment on above: Performed By: #### L 9200.0000 #### [facility] [address] [place], [address] Chloride [Moles/Vol] 108 mmol/L Normal 98-108 [facility] Comment on above: Performed By: #### L 9200.0000 #### [facility] [address] [place], [address] CO2 [Moles/Vol] 21.6 mmol/L Normal 21.0-32.0 [facility] Comment on above: Performed By: #### L 9200.0000 #### [facility] [address] [place], [address] Creatinine [Mass/Vol] 1.03 mg/dL Normal 0.70-1.20 [facility] Comment on above: Performed By: #### L 9200.0000 #### [facility] [address] [place], [address] GAP 9 Normal 5-15 [facility] Comment on above: Performed By: #### L 9200.0000 #### [facility] [address] [place], [address] GFR/1.73 sq M.predicted among non-blacks MDRD (S/P/Bld) [Vol rate/Area] 53 mL/min/{1.73_m2} Low >60 [facility] Comment on above: Result Comment: mL/m in/1.73m2 CKD-EPI Creatinine Equation (2020) Performed By: #### L 9200.0000 #### [facility] [address] [place], [address] Glucose [Mass/Vol] 91 mg/dL Normal 70-99 [facility] Comment on above: Performed By: #### L 9200.0000 #### [facility] [address] [place], [address] Potassium [Moles/Vol] 5.2 mmol/L High 3.3-5.1 [facility] Comment on above: Performed By: #### L 9200.0000 #### [facility] [address] [place], [address] Sodium [Moles/Vol] 138 mmol/L Normal 133-145 [facility] Comment on above: Performed By: #### L 9200.0000 #### [facility] [address] [place], [address] Urea nitrogen [Mass/Vol] 23 mg/dL High 4-19 [facility] Comment on above: Performed By: #### L 9200.0000 #### [facility] [address] [place], [address] CBC-Complete Blood Cnt No Di ffon 02-18-2025 Erythrocyte distribution width (RBC) [Ratio] 14.0 % Normal 11.6-14.6 [facility] Comment on above: Performed By: #### L 9200.0000 #### [facility] [address] [place], [address] Hematocrit (Bld) [Volume fraction] 31.6 % Low 37-47 [facility] Comment on above: Performed By: #### L 9200.0000 #### [facility] [address] [place], [address] Hemoglobin (Bld) [Mass/Vol] 10.2 g/dL Low 12.0-15.0 [facility] Comment on above: Performed By: #### L 9200.0000 #### [facility] [address] [place], [address] MCH (RBC) [Entitic mass] 30.0 pg Normal 27.0-32.0 [facility] Comment on above: Performed By: #### L 9200.0000 #### [facility] [address] [place], [address] MCHC (RBC) [Mass/Vol] 32.3 g/dL Normal 32-36 [facility] Comment on above: Performed By: #### L 9200.0000 #### [facility] [address] [place], [address] MCV (RBC) [Entitic vol] 92.9 fL Normal 81-99 [facility] Comment on above: Performed By: #### L 9200.0000 #### [facility] [address] [place], [address] Platelet mean volume (Bld) [Entitic vol] 9.9 fL Normal 6.2-12.0 [facility] Comment on above: Performed By: #### L 9200.0000 #### [facility] [address] [place], [address] Platelets (Bld) [#/Vol] 257 10*3/uL Normal 150-450 [facility] Comment on above: Performed By: #### L 9200.0000 #### [facility] [address] [place], [address] RBC (Bld) [#/Vol] 3.40 10*6/uL Low 4.2-5.4 [facility] Comment on above: Performed By: #### L 9200.0000 #### [facility] [address] [place], [address] RDW SD 47.2 fl High 35.1-43.9 [facility] Comment on above: Performed By: #### L 9200.0000 #### [facility] [address] [place], [address] WBC (Bld) [#/Vol] 4.3 10*3/uL Low 4.4-11.0 [facility] Comment on above: Performed By: #### L 9200.0000 #### [facility] [address] [place], [address] Prothrombin Time w/INRon INR Coag (PPP) [Relative time] 2.5 {INR} Normal [facility] Comment on above: Performed By: #### L 9200.0000 #### [facility] [address] [place], [address] PT Coag (PPP) [Time] 27.6 s High 11.7-14.9 [facility] Comment on above: Performed By: #### L 9200.0000 #### [facility] [address] [place], [address] Basic Metabolic Profile (BMP )on 02-15-2025 BUN/CRE 18.4 RATIO Normal 10-20 [facility] Comment on above: Order Comment: 104.1 Performed By: #### L 9200.0000 #### [facility] [address] [place], [address] Calcium [Mass/Vol] 9.4 mg/dL Normal 7.6-11.0 [facility] Comment on above: Order Comment: 104.1 Performed By: #### L 9200.0000 #### [facility] [address] [place], [address] Chloride [Moles/Vol] 107 mmol/L Normal 98-108 [facility] Comment on above: Order Comment: 104.1 Performed By: #### L 9200.0000 #### [facility] [address] [place], [address] CO2 [Moles/Vol] 16.1 mmol/L Low 21.0-32.0 [facility] Comment on above: Order Comment: 104.1 Performed By: #### L 9200.0000 #### [facility] [address] [place], [address] Creatinine [Mass/Vol] 1.12 mg/dL Normal 0.70-1.20 [facility] Comment on above: Order Comment: 104.1 Performed By: #### L 9200.0000 #### [facility] [address] [place], [address] GAP 11 Normal 5-15 [facility] Comment on above: Order Comment: 104.1 Performed By: #### L 9200.0000 #### [facility] [address] [place], [address] GFR/1.73 sq M.predicted among non-blacks MDRD (S/P/Bld) [Vol rate/Area] 48 mL/min/{1.73_m2} Low >60 [facility] Comment on above: Order Comment: 104.1 Result Comment: mL/m in/1.73m2 CKD-EPI Creatinine Equation (2020) Performed By: #### L 9200.0000 #### [facility] [address] [place], [address] Glucose [Mass/Vol] 90 mg/dL Normal 70-99 [facility] Comment on above: Order Comment: 104.1 Performed By: #### L 9200.0000 #### [facility] [address] [place], [address] Potassium [Moles/Vol] 6.1 mmol/L Invalid Interpretation Code 3.3-5.1 [facility] Comment on above: Order Comment: 104.1 Result Comment: Crit ical result called 02/15/2025-09:30 by Cirilo Bird to Shannen Christianson. Hemolysis present, Results??could be affected. ?? Critical Result(s) Called at: by:??Results read back by same. Performed By: #### L 9200.0000 #### [facility] [address] [place], [address] Sodium [Moles/Vol] 134 mmol/L Normal 133-145 [facility] Comment on above: Order Comment: 104.1 Performed By: #### L 9200.0000 #### [facility] [address] [place], [address] Urea nitrogen [Mass/Vol] 21 mg/dL High 4-19 [facility] Comment on above: Order Comment: 104.1 Performed By: #### L 9200.0000 #### [facility] [address] [place], [address] CBC-Complete Blood Cnt No Di ffon 02-15-2025 Erythrocyte distribution width (RBC) [Ratio] 13.8 % Normal 11.6-14.6 [facility] Comment on above: Order Comment: 104.1 Performed By: #### L 500.2500, L100.0500 #### [facility] [address] [place], [address] Hematocrit (Bld) [Volume fraction] 34.2 % Low 37-47 [facility] Comment on above: Order Comment: 104.1 Performed By: #### L 500.2500, L100.0500 #### [facility] [address] [place], [address] Hemoglobin (Bld) [Mass/Vol] 10.8 g/dL Low 12.0-15.0 [facility] Comment on above: Order Comment: 104.1 Performed By: #### L 500.2500, L100.0500 #### [facility] [address] [place], [address] MCH (RBC) [Entitic mass] 30.4 pg Normal 27.0-32.0 [facility] Comment on above: Order Comment: 104.1 Performed By: #### L 500.2500, L100.0500 #### [facility] [address] [place], [address] MCHC (RBC) [Mass/Vol] 31.6 g/dL Low 32-36 [facility] Comment on above: Order Comment: 104.1 Performed By: #### L 500.2500, L100.0500 #### [facility] [address] [place], [address] MCV (RBC) [Entitic vol] 96.3 fL Normal 81-99 [facility] Comment on above: Order Comment: 104.1 Performed By: #### L 500.2500, L100.0500 #### [facility] [address] [place], [address] Platelet mean volume (Bld) [Entitic vol] 10.4 fL Normal 6.2-12.0 [facility] Comment on above: Order Comment: 104.1 Performed By: #### L 500.2500, L100.0500 #### [facility] [address] [place], [address] Platelets (Bld) [#/Vol] 239 10*3/uL Normal 150-450 [facility] Comment on above: Order Comment: 104.1 Performed By: #### L 500.2500, L100.0500 #### [facility] [address] [place], [address] RBC (Bld) [#/Vol] 3.55 10*6/uL Low 4.2-5.4 [facility] Comment on above: Order Comment: 104.1 Performed By: #### L 500.2500, L100.0500 #### [facility] [address] [place], [address] RDW SD 49.1 fl High 35.1-43.9 [facility] Comment on above: Order Comment: 104.1 Performed By: #### L 500.2500, L100.0500 #### [facility] [address] [place], [address] WBC (Bld) [#/Vol] 4.3 10*3/uL Low 4.4-11.0 [facility] Comment on above: Order Comment: 104.1 Performed By: #### L 500.2500, L100.0500 #### [facility] [address] [place], [address] Prothrombin Time w/INRon INR Normal [facility] Comment on above: Order Comment: 104-1 Result Comment: FING ERSTICK Performed By: #### L 9200.0000 #### [facility] [address] [place], [address] PROTIME Normal 11.7-14.9 [facility] Comment on above: Order Comment: 104-1 Result Comment: FING ERSTICK Performed By: #### L 9200.0000 #### [facility] [address] [place], [address] Protime w/INR Fingerstickon 02-11-2025 INR Coag (PPP) [Relative time] 2.5 {INR} Normal [facility] Comment on above: Result Comment: Crit ical Value > 4.0 Performed By: #### L 9200.0000 #### [facility] [address] [place], [address] Protime Coagsen 26.4 SEC High 11.7-14.9 [facility] Comment on above: Performed By: #### L 9200.0000 #### [facility] [address] [place], [address] Protime w/INR Fingerstickon 02-07-2025 INR Coag (PPP) [Relative time] 2.2 {INR} Normal [facility] Comment on above: Result Comment: Crit ical Value > 4.0 Performed By: #### L 9200.0000 #### [facility] [address] [place], [address] Protime Coagsen 23.6 SEC High 11.7-14.9 [facility] Comment on above: Performed By: #### L 9200.0000 #### [facility] [address] [place], [address] Protime w/INR Fingerstickon 02-04-2025 INR Coag (PPP) [Relative time] 3.6 {INR} Normal [facility] Comment on above: Result Comment: Crit ical Value > 4.0 Performed By: #### L 9200.0000 #### [facility] [address] [place], [address] Protime Coagsen 36.4 SEC High 11.7-14.9 [facility] Comment on above: Performed By: #### L 9200.0000 #### [facility] [address] [place], [address] Prothrombin Time w/INRon INR Coag (PPP) [Relative time] 3.3 {INR} Normal [facility] Comment on above: Order Comment: 104-1 Performed By: #### L 300.3900 #### [facility] [address] [place], [address] PT Coag (PPP) [Time] 34.2 s High 11.7-14.9 [facility] Comment on above: Order Comment: 104-1 Performed By: #### L 300.3900 #### [facility] [address] [place], [address] Protime w/INR Fingerstickon 01-28-2025 INR Coag (PPP) [Relative time] 2.8 {INR} Normal [facility] Comment on above: Result Comment: Crit ical Value > 4.0 Performed By: #### L 9200.0000 #### [facility] [address] [place], [address] Protime Coagsen 29.1 SEC High 11.7-14.9 [facility] Comment on above: Performed By: #### L 9200.0000 #### [facility] [address] [place], [address] Protime w/INR Fingerstickon 01-25-2025 INR Coag (PPP) [Relative time] 3.4 {INR} Normal [facility] Comment on above: Result Comment: Crit ical Value > 4.0 Performed By: #### L 9200.0000 #### [facility] [address] [place], [address] Protime Coagsen 34.5 SEC High 11.7-14.9 [facility] Comment on above: Performed By: #### L 9200.0000 #### [facility] [address] [place], [address] Prothrombin Time w/INRon INR Coag (PPP) [Relative time] 2.8 {INR} Normal [facility] Comment on above: Order Comment: 104- Performed By: #### L 300.3900 #### [facility] [address] [place], [address] PT Coag (PPP) [Time] 30.5 s High 11.7-14.9 [facility] Comment on above: Order Comment: 104-1 Performed By: #### L 300.3900 #### [facility] [address] [place], [address] Prothrombin Time w/INRon INR Coag (PPP) [Relative time] 2.5 {INR} Normal [facility] Comment on above: Order Comment: 104.1 Performed By: #### L 9200.0000 #### [facility] [address] [place], [address] PT Coag (PPP) [Time] 27.1 s High 11.7-14.9 [facility] Comment on above: Order Comment: 104.1 Performed By: #### L 9200.0000 #### [facility] [address] [place], [address] Prothrombin Time w/INRon INR Coag (PPP) [Relative time] 2.4 {INR} Normal [facility] Comment on above: Order Comment: DID F INGERSTICK TWICE, BOTH TIMES GOT A 'NO CLOT DETECTED'MESSAGE, SO VA A VENOUS SAMPLE. SPOKE WITH NURSE RIVKA Performed By: #### L 9200.0000 #### [facility] [address] [place], [address] PT Coag (PPP) [Time] 26.9 s High 11.7-14.9 [facility] Comment on above: Order Comment: DID F INGERSTICK TWICE, BOTH TIMES GOT A 'NO CLOT DETECTED'MESSAGE, SO VA A VENOUS SAMPLE. SPOKE WITH NURSE RIVKA Performed By: #### L 9200.0000 #### [facility] [address] [place], [address] Protime w/INR Fingerstickon 01-17-2025 INR Coag (PPP) [Relative time] 1.9 {INR} Normal [facility] Comment on above: Result Comment: Crit ical Value > 4.0 Performed By: #### L 9200.0000 #### [facility] [address] [place], [address] Protime Coagsen 20.8 SEC High 11.7-14.9 [facility] Comment on above: Performed By: #### L 9200.0000 #### [facility] [address] [place], [address] Protime w/INR Fingerstickon 01-16-2025 INR Coag (PPP) [Relative time] 1.5 {INR} Normal [facility] Comment on above: Result Comment: Crit ical Value > 4.0 Performed By: #### L 9200.0000 #### [facility] [address] [place], [address] Protime Coagsen 17.2 SEC High 11.7-14.9 [facility] Comment on above: Performed By: #### L 9200.0000 #### [facility] [address] [place], [address] Prothrombin Time w/INRon INR Coag (PPP) [Relative time] 1.2 {INR} Normal [facility] Comment on above: Performed By: #### L 9200.0000 #### [facility] [address] [place], [address] PT Coag (PPP) [Time] 15.4 s High 11.7-14.9 [facility] Comment on above: Performed By: #### L 9200.0000 #### [facility] [address] [place], [address] 36on 01-08-2025 36 Normal [facility] Basic Metabolic Profile (BMP )on 01-07-2025 BUN/CRE 17.7 RATIO Normal 10-20 [facility] Comment on above: Order Comment: 104.1 Performed By: #### L 9200.0000 #### [facility] [address] [place], [address] Calcium [Mass/Vol] 9.1 mg/dL Normal 7.6-11.0 [facility] Comment on above: Order Comment: 104.1 Performed By: #### L 9200.0000 #### [facility] [address] [place], [address] Chloride [Moles/Vol] 109 mmol/L High 98-108 [facility] Comment on above: Order Comment: 104.1 Performed By: #### L 9200.0000 #### [facility] [address] [place], [address] CO2 [Moles/Vol] 19.7 mmol/L Low 21.0-32.0 [facility] Comment on above: Order Comment: 104.1 Performed By: #### L 9200.0000 #### [facility] [address] [place], [address] Creatinine [Mass/Vol] 1.15 mg/dL Normal 0.70-1.20 [facility] Comment on above: Order Comment: 104.1 Performed By: #### L 9200.0000 #### [facility] [address] [place], [address] GAP 10 Normal 5-15 [facility] Comment on above: Order Comment: 104.1 Performed By: #### L 9200.0000 #### [facility] [address] [place], [address] GFR/1.73 sq M.predicted among non-blacks MDRD (S/P/Bld) [Vol rate/Area] 47 mL/min/{1.73_m2} Low >60 [facility] Comment on above: Order Comment: 104.1 Result Comment: mL/m in/1.73m2 CKD-EPI Creatinine Equation (2020) Performed By: #### L 9200.0000 #### [facility] [address] [place], [address] Glucose [Mass/Vol] 87 mg/dL Normal 70-99 [facility] Comment on above: Order Comment: 104.1 Performed By: #### L 9200.0000 #### [facility] [address] [place], [address] Potassium [Moles/Vol] 5.0 mmol/L Normal 3.3-5.1 [facility] Comment on above: Order Comment: 104.1 Performed By: #### L 9200.0000 #### [facility] [address] [place], [address] Sodium [Moles/Vol] 138 mmol/L Normal 133-145 [facility] Comment on above: Order Comment: 104.1 Performed By: #### L 9200.0000 #### [facility] [address] [place], [address] Urea nitrogen [Mass/Vol] 20 mg/dL High 4-19 [facility] Comment on above: Order Comment: 104.1 Performed By: #### L 9200.0000 #### [facility] [address] [place], [address] CBC-Complete Blood Cnt No Di ffon 01-07-2025 Erythrocyte distribution width (RBC) [Ratio] 16.5 % High 11.6-14.6 [facility] Comment on above: Order Comment: 104.1 Performed By: #### L 9200.0000 #### [facility] [address] [place], [address] Hematocrit (Bld) [Volume fraction] 30.4 % Low 37-47 [facility] Comment on above: Order Comment: 104.1 Performed By: #### L 9200.0000 #### [facility] [address] [place], [address] Hemoglobin (Bld) [Mass/Vol] 9.8 g/dL Low 12.0-15.0 [facility] Comment on above: Order Comment: 104.1 Performed By: #### L 9200.0000 #### [facility] [address] [place], [address] MCH (RBC) [Entitic mass] 29.9 pg Normal 27.0-32.0 [facility] Comment on above: Order Comment: 104.1 Performed By: #### L 9200.0000 #### [facility] [address] [place], [address] MCHC (RBC) [Mass/Vol] 32.2 g/dL Normal 32-36 [facility] Comment on above: Order Comment: 104.1 Performed By: #### L 9200.0000 #### [facility] [address] [place], [address] MCV (RBC) [Entitic vol] 92.7 fL Normal 81-99 [facility] Comment on above: Order Comment: 104.1 Performed By: #### L 9200.0000 #### [facility] [address] [place], [address] Platelet mean volume (Bld) [Entitic vol] 10.0 fL Normal 6.2-12.0 [facility] Comment on above: Order Comment: 104.1 Performed By: #### L 9200.0000 #### [facility] [address] [place], [address] Platelets (Bld) [#/Vol] 254 10*3/uL Normal 150-450 [facility] Comment on above: Order Comment: 104.1 Performed By: #### L 9200.0000 #### [facility] [address] [place], [address] RBC (Bld) [#/Vol] 3.28 10*6/uL Low 4.2-5.4 [facility] Comment on above: Order Comment: 104.1 Performed By: #### L 9200.0000 #### [facility] [address] [place], [address] RDW SD 55.9 fl High 35.1-43.9 [facility] Comment on above: Order Comment: 104.1 Performed By: #### L 9200.0000 #### [facility] [address] [place], [address] WBC (Bld) [#/Vol] 4.5 10*3/uL Normal 4.4-11.0 [facility] Comment on above: Order Comment: 104.1 Performed By: #### L 9200.0000 #### [facility] [address] [place], [address] 36on 01-04-2025 36 Normal [facility] 36 Normal [facility] Progress Noteon 12-24-2024 Progress Note Normal [facility] No Panel Informationon 12-13 Left MICHELLE 0.71 [facility] Left arm BP 121 mmHg [facility] Left Dist Outflow EDV 6.5 cm/s [facility] Left Dist Outflow PSV 51.5 cm/s [facility] Left dorsalis pedis BP 67 mmHg [facility] Left Graft 1 Proximal Popliteal Stent [facility] Left Inflow Artery EDV 8.5 cm/s [facility] Left Inflow Artery PSV 46.5 cm/s [facility] Left Mid Outflow EDV 6.5 cm/s [facility] Left Mid Outflow PSV 58.1 cm/s [facility] Left Outflow Vessel EDV 9.8 cm/s S [facility] Left Outflow Vessel PSV 89.9 cm/s S [facility] Left posterior tibial 94 mmHg [facility] Left Prox Outflow EDV 6.5 cm/s [facility] Left Prox Outflow PSV 51.5 cm/s [facility] Right MICHELLE 0.96 [facility] Right arm BP 133 mmHg [facility] Right YARITZA dist PSV 53.6 cm/s [facility] Right C[employer]PER[employer] dist PSV 144.6 cm[facility]s [facility] Right CUT 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 MACHINE OPERATOR mid AP diameter 0.92 cm [facility] Right CUT LACE MACHINE OPERATOR mid TR diameter 0.89 cm [facility] Right CUT LACE MACHINE OPERATOR prox PSV 133.7 cm/s [facility] Right Dist Outflow EDV 0 cm/s [facility] Right Dist Outflow PSV 45.3 cm/s [facility] Health Right dorsalis pedis BP 107 mmHg S [facility] Health Right EIA dist PSV 144.6 cm/s [facility] Graft 1 Distal SFA Stent [facility] Right Inflow Artery EDV 4.6 cm/s S [facility] Right Inflow Artery PSV 100.7 cm/s S [facility] Right Mid Outflow EDV 2.3 cm/s [facility] Mid Outflow PSV 66.2 cm/s [facility] Outflow Vessel EDV 2.3 cm/s [facility] Right Outflow Vessel PSV 56.4 cm/s [facility] Right PFA AP diameter 0.59 cm [facility] PFA TR diameter 0.73 cm [facility] Pop A dist PSV 157.6 cm/s [facility] Pop A mid PSV 89.9 cm/s [facility] Right popliteal artery mid AP diameter 0.52 cm [facility] Right popliteal artery mid TR diameter 0.6 cm [facility] Right posterior tibial 128 mmHg [facility] Health Right Prox Outflow EDV 0 cm/s [facility] Right Prox Outflow PSV 68.6 cm/s [facility] Health Right MANAGER ACQUISITION dist PSV 48.1 cm/s [facility] Right SFA dist PSV 100.7 cm/s [facility] Right SFA distal AP diameter 0.71 [...] CPACS Progress Noteon 12-05-2024 Progress Note Normal [facility] 36on 11-23-2024 36 Normal [facility] 36 Normal [facility] 36 Normal [facility] [id number] 11-22-2024 [id number] Normal [facility] Anesthesia Noteon 11-22-2024 Anesthesia Note Normal [facility] No Panel Informationon 11-22 There is no interpretation needed for this exam. IMAGING Nursing Noteon 11-22-2024 Nursing Note Patient arrived on unit. Name and date verified. Attached to monitors. Vital signs stable. Normal [facility] Op Noteon 11-22-2024 Op Note Normal [facility] Progress Noteon 11-22-2024 Progress Note POA called to bedsid e and discharge instructions reviewed. Groin site remains intact and LE distal pulses unchanged via assessment with doppler. 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 Made aware of patient's orders to lay flat until 1325. Daughter in law stated that she will call care facility later to make arrangements for transportation back. Normal [facility] Anesthesia Noteon 11-21-2024 Anesthesia Note Normal [facility] Basic Metabolic Profile (BMP )on 11-15-2024 BUN/CRE 18.3 RATIO Normal - [facility] Comment on above: Order Comment: 104-1 Performed By: #### L 9200.0000 #### [facility] [place], [address] Calcium [Mass/Vol] 9.0 mg/dL Normal 7.6-11.0 [facility] Comment on above: Order Comment: 104-1 Performed By: #### L [id number] #### [facility] [address] [place], [address] Chloride [Moles/Vol] 108 mmol/L Normal 98-108 [facility] Comment on above: Order Comment: 104-1 Performed By: #### L 9200.0000 #### [facility] [address] [place], [address] CO2 [Moles/Vol] 22.1 mmol/L Normal 21.0-32.0 [facility] Comment on above: Order Comment: 104-1 Performed By: #### L 9200.0000 #### [facility] [address] [place], [address] Creatinine [Mass/Vol] 1.03 mg/dL Normal 0.70-1.20 [facility] Comment on above: Order Comment: 104-1 Performed By: #### L 9200.0000 #### [facility] [address] [place], [address] GAP 9 Normal 5-15 [facility] Comment on above: Order Comment: 104-1 Performed By: #### L 9200.0000 #### [facility] [address] [place], [address] GFR/1.73 sq M.predicted among non-blacks MDRD (S/P/Bld) [Vol rate/Area] 53 mL/min/{1.73_m2} Low >60 [facility] Comment on above: Order Comment: 104-1 Result Comment: mL/m in/1.73m2 CKD-EPI Creatinine Equation (2020) Performed By: #### L 9200.0000 #### [facility] [address] [place], [address] Glucose [Mass/Vol] 91 mg/dL Normal 70-99 [facility] Comment on above: Order Comment: 104-1 Performed By: #### L 9200.0000 #### [facility] [address] [place], [address] Potassium [Moles/Vol] 4.8 mmol/L Normal 3.3-5.1 [facility] Comment on above: Order Comment: 104-1 Performed By: #### L 9200.0000 #### [facility] [address] [place], [address] Sodium [Moles/Vol] 138 mmol/L Normal 133-145 [facility] Comment on above: Order Comment: 104-1 Performed By: #### L 9200.0000 #### [facility] [address] [place], [address] Urea nitrogen [Mass/Vol] 19 mg/dL Normal 4-19 [facility] Comment on above: Order Comment: 104-1 Performed By: #### L 9200.0000 #### [facility] [address] [place], [address] CBC W/Diff, Automatedon 05-0 1-5 Absolute Lymph 1.77 X10 3/uL Normal 0.83-4.51 [facility] Comment on above: Order Comment: 104-1 Performed By: #### L 9200.0000 #### [facility] [address] [place], [address] Absolute Neut 3.2 X10 3/uL Normal 2.0-7.7 [facility] Comment on above: Order Comment: 104-1 Performed By: #### L 9200.0000 #### [facility] [address] [place], [address] Basophils/100 WBC (Bld) 0.7 % Normal 0-1 [facility] Comment on above: Order Comment: 104-1 Performed By: #### L 9200.0000 #### [facility] [address] [place], [address] Eosinophils/100 WBC (Bld) 2.9 % Normal 0-5 [facility] Comment on above: Order Comment: 104-1 Performed By: #### L 9200.0000 #### [facility] [address] [place], [address] Erythrocyte distribution width (RBC) [Ratio] 18.8 % High 11.6-14.6 [facility] Comment on above: Order Comment: 104-1 Performed By: #### L 9200.0000 #### [facility] [address] [place], [address] Hematocrit (Bld) [Volume fraction] 30.9 % Low 37-47 [facility] Comment on above: Order Comment: 104-1 Performed By: #### L 9200.0000 #### [facility] [address] [place], [address] Hemoglobin (Bld) [Mass/Vol] 9.8 g/dL Low 12.0-15.0 [facility] Comment on above: Order Comment: 104-1 Performed By: #### L 9200.0000 #### [facility] [address] [place], [address] IG% 0.200 Normal 0.0-0.9 [facility] Comment on above: Order Comment: 104-1 Result Comment: IG% - Immature Granulocytes (promyelocytes, myelocytes and metamyelocytes) > 1% indicates that a LEFT SHIFT is Present. Performed By: #### L 9200.0000 #### [facility] [address] [place], [address] Lymphocytes/100 WBC (Bld) 30.3 % Normal 19-41 [facility] Comment on above: Order Comment: 104-1 Performed By: #### L 9200.0000 #### [facility] [address] [place], [address] MCH (RBC) [Entitic mass] 28.4 pg Normal 27.0-32.0 [facility] Comment on above: Order Comment: 104-1 Performed By: #### L 9200.0000 #### [facility] [address] [place], [address] MCHC (RBC) [Mass/Vol] 31.7 g/dL Low 32-36 [facility] Comment on above: Order Comment: 104-1 Performed By: #### L 9200.0000 #### [facility] [address] [place], [address] MCV (RBC) [Entitic vol] 89.6 fL Normal 81-99 [facility] Comment on above: Order Comment: 104-1 Performed By: #### L 9200.0000 #### [facility] [address] [place], [address] Monocytes/100 WBC (Bld) 11.3 % High 0-10 [facility] Comment on above: Order Comment: 104-1 Performed By: #### L 9200.0000 #### [facility] [address] [place], [address] Neutrophils/100 WBC (Bld) 54.6 % Normal 47-70 [facility] Comment on above: Order Comment: 104-1 Performed By: #### L 9200.0000 #### [facility] [address] [place], [address] Nucleated RBC (Bld) [#/Vol] 0 10*3/uL Normal 0-5 [facility] Comment on above: Order Comment: 104-1 Performed By: #### L 9200.0000 #### [facility] [address] [place], [address] Platelet mean volume (Bld) [Entitic vol] 10.2 fL Normal 6.2-12.0 [facility] Comment on above: Order Comment: 104-1 Performed By: #### L 9200.0000 #### [facility] [address] [place], [address] Platelets (Bld) [#/Vol] 303 10*3/uL Normal 150-450 [facility] Comment on above: Order Comment: 104-1 Performed By: #### L 9200.0000 #### [facility] [address] [place], [address] RBC (Bld) [#/Vol] 3.45 10*6/uL Low 4.2-5.4 [facility] Comment on above: Order Comment: 104-1 Performed By: #### L 9200.0000 #### [facility] [address] [place], [address] RDW SD 61.8 fl High 35.1-43.9 [facility] Comment on above: Order Comment: 104-1 Performed By: #### L 9200.0000 #### [facility] [address] [place], [address] WBC (Bld) [#/Vol] 5.8 10*3/uL Normal 4.4-11.0 [facility] Comment on above: Order Comment: 104-1 Performed By: #### L 9200.0000 #### [facility] [address] [place], [address] 36on 11-14-2024 36 Normal [facility] 36on 11-08-2024 36 Fidel called to state that she spoke with Mel and she would like to proceed with angio. Normal [facility] Progress Noteon 11-05-2024 Progress Note Normal [facility] Anion gap in Serum or Plasma Ordered By: Megan Montoya on 10-08-2024 Anion gap [Moles/Vol] 12 mmol/L 5-15 [facility] BUN/creatinine ratioOrdered By: Megan Montoya on 10-08-2024 Urea nitrogen/Creatinine [Mass ratio] 16.5 mg/mg 10-20 [facility] Basic Metabolic Profile (BMP )on 10-08-2024 BUN/CRE 16.5 RATIO Normal - [facility] Comment on above: Order Comment: 104.1 Performed By: #### L 500.2500, L100.0500 #### [facility] [address] [place], [address] Calcium [Mass/Vol] 9.0 mg/dL Normal 7.6-11.0 [facility] Comment on above: Order Comment: 104.1 Performed By: #### L 500.2500, L100.0500 #### [facility] [address] [place], [address] Chloride [Moles/Vol] 106 mmol/L Normal 98-108 [facility] Comment on above: Order Comment: 104.1 Performed By: #### L 500.2500, L100.0500 #### [facility] [address] [place], [address] CO2 [Moles/Vol] 20.0 mmol/L Low 21.0-32.0 [facility] Comment on above: Order Comment: 104.1 Performed By: #### L 500.2500, L100.0500 #### [facility] [address] [place], [address] Creatinine [Mass/Vol] 1.05 mg/dL Normal 0.70-1.20 [facility] Comment on above: Order Comment: 104.1 Performed By: #### L 500.2500, L100.0500 #### [facility] [address] [place], [address] GAP 12 Normal 5-15 [facility] Comment on above: Order Comment: 104.1 Performed By: #### L 500.2500, L100.0500 #### [facility] [address] [place], [address] GFR/1.73 sq M.predicted among non-blacks MDRD (S/P/Bld) [Vol rate/Area] 52 mL/min/{1.73_m2} Low >60 [facility] Comment on above: Order Comment: 104.1 Result Comment: mL/m in/1.73m2 CKD-EPI Creatinine Equation (2020) Performed By: #### L 500.2500, L100.0500 #### [facility] [address] [place], [address] Glucose [Mass/Vol] 98 mg/dL Normal 70-99 [facility] Comment on above: Order Comment: 104.1 Performed By: #### L 500.2500, L100.0500 #### [facility] [address] [place], [address] Potassium [Moles/Vol] 4.3 mmol/L Normal 3.3-5.1 [facility] Comment on above: Order Comment: 104.1 Result Comment: Hemo lysis present, Results??could be affected. ?? Performed By: #### L 500.2500, L100.0500 #### [facility] [address] [place], [address] Sodium [Moles/Vol] 137 mmol/L Normal 133-145 [facility] Comment on above: Order Comment: 104.1 Performed By: #### L 500.2500, L100.0500 #### [facility] [address] [place], [address] Urea nitrogen [Mass/Vol] 17 mg/dL Normal 4-19 [facility] Comment on above: Order Comment: 104.1 Performed By: #### L 500.2500, L100.0500 #### [facility] [address] [place], [address] CBC-Complete Blood Cnt No Di ffon 10-08-2024 Erythrocyte distribution width (RBC) [Ratio] 17.5 % High 11.6-14.6 [facility] Comment on above: Order Comment: 104.1 Performed By: #### L 500.2500, L100.0500 #### [facility] [address] [place], [address] Hematocrit (Bld) [Volume fraction] 30.4 % Low 37-47 [facility] Comment on above: Order Comment: 104.1 Performed By: #### L 500.2500, L100.0500 #### [facility] [address] [place], [address] Hemoglobin (Bld) [Mass/Vol] 9.6 g/dL Low 12.0-15.0 [facility] Comment on above: Order Comment: 104.1 Performed By: #### L 500.2500, L100.0500 #### [facility] [address] [place], [address] MCH (RBC) [Entitic mass] 27.4 pg Normal 27.0-32.0 [facility] Comment on above: Order Comment: 104.1 Performed By: #### L 500.2500, L100.0500 #### [facility] [address] [place], [address] MCHC (RBC) [Mass/Vol] 31.6 g/dL Low 32-36 [facility] Comment on above: Order Comment: 104.1 Performed By: #### L 500.2500, L100.0500 #### [facility] [address] [place], [address] MCV (RBC) [Entitic vol] 86.9 fL Normal 81-99 [facility] Comment on above: Order Comment: 104.1 Performed By: #### L 500.2500, L100.0500 #### [facility] [address] [place], [address] Platelet mean volume (Bld) [Entitic vol] 10.3 fL Normal 6.2-12.0 [facility] Comment on above: Order Comment: 104.1 Performed By: #### L 500.2500, L100.0500 #### [facility] [address] [place], [address] Platelets (Bld) [#/Vol] 408 10*3/uL Normal 150-450 [facility] Comment on above: Order Comment: 104.1 Performed By: #### L 500.2500, L100.0500 #### [facility] [address] [place], [address] RBC (Bld) [#/Vol] 3.50 10*6/uL Low 4.2-5.4 [facility] Comment on above: Order Comment: 104.1 Performed By: #### L 500.2500, L100.0500 #### [facility] [address] [place], [address] RDW SD 56.2 fl High 35.1-43.9 [facility] Comment on above: Order Comment: 104.1 Performed By: #### L 500.2500, L100.0500 #### [facility] [address] [place], [address] WBC (Bld) [#/Vol] 6.4 10*3/uL Normal 4.4-11.0 [facility] Comment on above: Order Comment: 104.1 Performed By: #### L 500.2500, L100.0500 #### [facility] [address] [place], [address] Carbon dioxide, total [Moles /volume] in Central venous bloodOrdered By: Megan Montoya on 10-08-2024 CO2 [Moles/Vol] 20.0 mmol/L Low 21.0-32.0 [facility] Chloride assayOrdered By: Johnathan Guzman on 10-08-2024 Chloride [Moles/Vol] 106 mmol/L 98-108 [facility] Erythrocyte distribution wid th ratioOrdered By: Megan Montoya on 10-08-2024 Erythrocyte distribution width (RBC) [Ratio] 17.5 % High 11.6-14.6 [facility] Erythrocyte distribution wid th standard deviationOrdered By: Megan Montoya on 10-08-2024 Erythrocyte distribution width (RBC) [Entitic vol] 56.2 fL High 35.1-43.9 [facility] GFR/1.73 sq M.predicted gricelda g non-blacks MDRD (S/P/Bld) [Vol rate/Area]Ordered By: Megan Montoya on 10-08-2024 Estimated GFR (MDRD) Non-Af Amer 52 Low >60 [facility] Comment on above: mL/min/1.73m2 CKD-EP I Creatinine Equation (2020) Hematocrit Auto (Bld) [Volum e fraction]Ordered By: Megan Montoya on 10-08-2024 Hematocrit (Bld) [Volume fraction] 30.4 % Low 37-47 [facility] Hemoglobin measurementOrdere d By: Megan Montoya on 10-08-2024 Hemoglobin (Bld) [Mass/Vol] 9.6 g/dL Low 12.0-15.0 [facility] MCV (mean corpuscular volume ) determinationOrdered By: Megan Montoya on 10-08-2024 MCV (RBC) [Entitic vol] 86.9 fL 81-99 [facility] Mean corpuscular hemoglobin (MCH) determinationOrdered By: Megan Montoya on 10-08-2024 MCH (RBC) [Entitic mass] 27.4 pg 27.0-32.0 [facility] Mean corpuscular hemoglobin concentration (MCHC) determinationOrdered By: Megan Montoya on 10-08-2024 MCHC (RBC) [Mass/Vol] 31.6 g/dL Low 32-36 [facility] Mean platelet volume determi nationOrdered By: Megan Montoya on 10-08-2024 Platelet mean volume (Bld) [Entitic vol] 10.3 fL 6.2-12.0 [facility] Platelet countOrdered By: Johnathan Guzman on 10-08-2024 Platelets (Bld) [#/Vol] 408 10*3/uL 150-450 [facility] Potassium (Unsp spec) [Mass/ Vol]Ordered By: Megan Montoya on 10-08-2024 Potassium [Moles/Vol] 4.3 mmol/L 3.3-5.1 [facility] Comment on above: Hemolysis present, R esults could be affected. RBC Auto (Bld) [#/Vol]Ordere d By: Megan Montoya on 10-08-2024 RBC (Bld) [#/Vol] 3.50 10*6/uL Low 4.2-5.4 [facility] Serum creatinine measurement (mass/volume)Ordered By: Megan Montoya on 10-08-2024 Creatinine [Mass/Vol] 1.05 mg/dL 0.70-1.20 [facility] Serum glucose measurement (m ass/volume)Ordered By: Megan Montoya on 10-08-2024 Glucose [Mass/Vol] 98 mg/dL 70-99 [facility] Serum or plasma calcium reyna urement (mass/volume)Ordered By: Megan Montoya on 10-08-2024 Calcium [Mass/Vol] 9.0 mg/dL 7.6-11.0 [facility] Serum or plasma urea nitroge n measurement (mass/volume)Ordered By: Megan Montoya on 10-08-2024 Urea nitrogen [Mass/Vol] 17 mg/dL 4-19 [facility] Sodium levelOrdered By: Juan C Montoya on 10-08-2024 Sodium [Moles/Vol] 137 mmol/L 133-145 [facility] White blood cell (WBC) count Ordered By: Megan Montoya on 10-08-2024 WBC (Bld) [#/Vol] 6.4 10*3/uL 4.4-11.0 [facility] BSCAN OD (RIGHT EYE)on 10-01 [facility] Radiology Study observation (narrative) [facility] BUN/creatinine ratioOrdered By: Megan Montoya on 09-17-2024 Urea nitrogen/Creatinine [Mass ratio] 15.7 mg/mg 10-20 [facility] Basic Metabolic Profile (BMP )on 09-17-2024 Anion gap [Moles/Vol] 10 mmol/L Normal 5-15 [facility] Comment on above: Order Comment: 104-1 Performed By: #### L 300.7580 #### [facility] [address] [place], [address] BUN/CRE 15.7 RATIO Normal 10-20 [facility] Comment on above: Order Comment: 104-1 Performed By: #### L 300.3900 #### [facility] [address] [place], [address] Calcium [Mass/Vol] 9.0 mg/dL Normal 7.6-11.0 [facility] Comment on above: Order Comment: 104-1 Performed By: #### L 300.3900 #### [facility] [address] [place], [address] Chloride [Moles/Vol] 108 mmol/L Normal 96-108 [facility] Comment on above: Order Comment: 104-1 Performed By: #### L 300.3900 #### [facility] [address] [place], [address] CO2 [Moles/Vol] 21.6 mmol/L Low 22.0-29.0 [facility] Comment on above: Order Comment: 104-1 Performed By: #### L 300.3900 #### [facility] [address] [place], [address] Creatinine [Mass/Vol] 1.03 mg/dL Normal 0.70-1.20 [facility] Comment on above: Order Comment: 104-1 Performed By: #### L 300.3900 #### [facility] [address] [place], [address] GFR/1.73 sq M.predicted among non-blacks MDRD (S/P/Bld) [Vol rate/Area] 54 mL/min/{1.73_m2} Low >60 [facility] Comment on above: Order Comment: 104-1 Result Comment: mL/m in/1.73m2 CKD-EPI Creatinine Equation (2020) Performed By: #### L 300.3900 #### [facility] [address] [place], [address] Glucose [Mass/Vol] 90 mg/dL Normal 70-99 [facility] Comment on above: Order Comment: 104-1 Performed By: #### L 300.3900 #### [facility] [address] [place], [address] Potassium [Moles/Vol] 4.5 mmol/L Normal 3.3-5.1 [facility] Comment on above: Order Comment: 104-1 Performed By: #### L 300.3900 #### [facility] [address] [place], [address] Sodium [Moles/Vol] 140 mmol/L Normal 133-145 [facility] Comment on above: Order Comment: 104-1 Performed By: #### L 300.3900 #### [facility] [address] [place], [address] Urea nitrogen [Mass/Vol] 16 mg/dL Normal 4-19 [facility] Comment on above: Order Comment: 104-1 Performed By: #### L 300.3900 #### [facility] [address] [place], [address] Carbon dioxide measurementOr dered By: Megan Montoya on 09-17-2024 CO2 [Moles/Vol] 21.6 mmol/L Low 22.0-29.0 [facility] Chloride measurementOrdered By: Megan Montoya on 09-17-2024 Chloride [Moles/Vol] 108 mmol/L 96-108 [facility] GFR/1.73 sq M.predicted gricelda g non-blacks MDRD (S/P/Bld) [Vol rate/Area]Ordered By: Megan Montoya on 09-17-2024 Estimated GFR (MDRD) Non-Af Amer 54 Low >60 [facility] Comment on above: mL/min/1.73m2 CKD-EP I Creatinine Equation (2020) Serum creatinine measurement (mass/volume)Ordered By: Megan Montoya on 09-17-2024 Creatinine [Mass/Vol] 1.03 mg/dL 0.70-1.20 [facility] Serum glucose measurement (m ass/volume)Ordered By: Megan Montoya on 09-17-2024 Glucose [Mass/Vol] 90 mg/dL 70-99 [facility] Serum or plasma anion gap de termination (moles/volume)Ordered By: Megan Montoya on 09-17-2024 Anion gap [Moles/Vol] 10 mmol/L 5-15 [facility] Serum or plasma calcium reyna urement (mass/volume)Ordered By: Megan Montoya on 09-17-2024 Calcium [Mass/Vol] 9.0 mg/dL 7.6-11.0 [facility] Serum or plasma potassium me asurementOrdered By: Megan Montoya on 09-17-2024 Potassium [Moles/Vol] 4.5 mmol/L 3.3-5.1 [facility] Serum or plasma sodium measu rement (moles/volume)Ordered By: Megan Montoya on 09-17-2024 Sodium [Moles/Vol] 140 mmol/L 133-145 [facility] Serum or plasma urea nitroge n measurement (mass/volume)Ordered By: Megan Montoya on 09-17-2024 Urea nitrogen [Mass/Vol] 16 mg/dL 4-19 [facility] Basic Metabolic Profile (BMP )on 09-10-2024 BUN/CRE 17.9 RATIO Normal 10-20 [facility] Comment on above: Order Comment: 104.1 Performed By: #### L [id number] #### [facility] [address] [place], [place], [id number] CA,Total 9.0 mg/dL Normal 8.5-10.1 [facility] Comment on above: Order Comment: 104.1 Performed By: #### L [id number] #### [facility] [address] [place], [place], [id number] Chloride [Moles/Vol] 108 mmol/L High 98-107 [facility] Comment on above: Order Comment: 104.1 Performed By: #### L [id number] #### [facility] [address] [place], [address] CO2 [Moles/Vol] 24.0 mmol/L Normal 21.0-32.0 [facility] Comment on above: Order Comment: 104.1 Performed By: #### L [id number] #### [facility] [address] [place], [address] Creatinine [Mass/Vol] 1.23 mg/dL High 0.55-1.02 [facility] Comment on above: Order Comment: 104.1 Result Comment: The validity of the calculated GFR GFRAA in patients over 70 years has not been determined. Clinical correlation is essential. Performed By: #### L [id number] #### [facility] [address] [place], [address] EST GFR - AA 53 mL/min Low >60 [facility] Comment on above: Order Comment: 104.1 Result Comment: Afri can Icelandic GFR Calc Performed By: #### L [id number] #### [facility] [address] [place], [address] GAP 5 Normal 5-15 [facility] Comment on above: Order Comment: 104.1 Performed By: #### L [id number] #### [facility] [address] [place], [address] GFR/1.73 sq M.predicted among non-blacks MDRD (S/P/Bld) [Vol rate/Area] 44 mL/min/{1.73_m2} Low >60 [facility] Comment on above: Order Comment: 104.1 Result Comment: Non- GFR Calc Performed By: #### L [id number] #### [facility] [address] [place], [address] Glucose [Mass/Vol] 98 mg/dL Normal 74-106 [facility] Comment on above: Order Comment: 104.1 Performed By: #### L [id number] #### [facility] [address] [place], [address] Potassium [Moles/Vol] 4.5 mmol/L Normal 3.5-5.1 [facility] Comment on above: Order Comment: 104.1 Performed By: #### L [id number] #### [facility] [address] [place], [address] Sodium [Moles/Vol] 137 mmol/L Normal 136-145 [facility] Comment on above: Order Comment: 104.1 Performed By: #### L [id number] #### [facility] [address] [place], [address] Urea nitrogen [Mass/Vol] 22 mg/dL High 7-18 [facility] Comment on above: Order Comment: 104.1 Performed By: #### L [id number] #### [facility] [address] [place], [address] Blood urea nitrogen (BUN)/cr eatinine ratioOrdered By: Megan Montoya on 09-10-2024 Urea nitrogen/Creatinine [Mass ratio] 17.9 mg/mg 10-20 [facility] CBC-Complete Blood Cnt No Di ffon 09-10-2024 Erythrocyte distribution width (RBC) [Ratio] 17.8 % High 11.6-14.6 [facility] Comment on above: Order Comment: 104.1 Performed By: #### L [id number] #### [facility] [address] [place], [address] Hematocrit (Bld) [Volume fraction] 31.9 % Low 37-47 [facility] Comment on above: Order Comment: 104.1 Performed By: #### L [id number] #### [facility] [address] [place], [address] Hemoglobin (Bld) [Mass/Vol] 9.7 g/dL Low 12.0-15.0 [facility] Comment on above: Order Comment: 104.1 Performed By: #### L [id number] #### [facility] [address] [place], [address] MCH (RBC) [Entitic mass] 26.1 pg Low 27.0-32.0 [facility] Comment on above: Order Comment: 104.1 Performed By: #### L [id number] #### [facility] [address] [place], [address] MCHC (RBC) [Mass/Vol] 30.4 g/dL Low 32-36 [facility] Comment on above: Order Comment: 104.1 Performed By: #### L [id number] #### [facility] [address] [place], [address] MCV (RBC) [Entitic vol] 85.8 fL Normal 81-99 [facility] Comment on above: Order Comment: 104.1 Performed By: #### L [id number] #### [facility] [address] [place], [address] Platelet mean volume (Bld) [Entitic vol] 9.5 fL Normal 6.2-12.0 [facility] Comment on above: Order Comment: 104.1 Performed By: #### L [id number] #### [facility] [address] [place], [address] Platelets (Bld) [#/Vol] 485 10*3/uL High 150-450 [facility] Comment on above: Order Comment: 104.1 Performed By: #### L [id number] #### [facility] [address] [place], [address] RBC (Bld) [#/Vol] 3.72 10*6/uL Low 4.2-5.4 [facility] Comment on above: Order Comment: 104.1 Performed By: #### L [id number] #### [facility] [address] [place], [place], [address] RDW SD 55.2 fl High 35.1-43.9 [facility] Comment on above: Order Comment: 104.1 Performed By: #### L [id number] #### [facility] [address] [place], [place], [id number] WBC (Bld) [#/Vol] 7.7 10*3/uL Normal 4.4-11.0 [facility] Comment on above: Order Comment: 104.1 Performed By: #### L [id number] #### [facility] [address] [place], [place], [address] Carbon dioxide measurementOr dered By: Megan Montoya on 09-10-2024 CO2 [Moles/Vol] 24.0 mmol/L 21.0-32.0 [facility] Chloride measurementOrdered By: Megan Montoya on 09-10-2024 Chloride [Moles/Vol] 108 mmol/L High 98-107 [facility] Erythrocyte distribution wid th ratioOrdered By: Megan Montoya on 09-10-2024 Erythrocyte distribution width (RBC) [Ratio] 17.8 % High 11.6-14.6 [facility] Erythrocyte distribution wid th standard deviationOrdered By: Megan Montoya on 09-10-2024 Erythrocyte distribution width (RBC) [Entitic vol] 55.2 fL High 35.1-43.9 [facility] Estimated glomerular filtrat ion rate (GFR) AmericanOrdered By: Megan Montoya on 09-10-2024 Estimated GFR (MDRD) Amer 53 mL/min Low >60 [facility] Comment on above: GFR Calc Glomerular filtration rate ( GFR) estimationOrdered By: Megan Montoya on 09-10-2024 Estimated GFR (MDRD) Non-Af Amer 44 mL/min Low >60 [facility] Comment on above: Non- GFR Calc Glucose measurementOrdered B y: Megan Montoya on 09-10-2024 Glucose [Mass/Vol] 98 mg/dL 74-106 [facility] Hematocrit Auto (Bld) [Volum e fraction]Ordered By: Megan Montoya on 09-10-2024 Hematocrit (Bld) [Volume fraction] 31.9 % Low 37-47 [facility] Hemoglobin measurementOrdere d By: Megan Montoya on 09-10-2024 Hemoglobin (Bld) [Mass/Vol] 9.7 g/dL Low 12.0-15.0 [facility] MCV (mean corpuscular volume ) determinationOrdered By: Megan Montoya on 09-10-2024 MCV (RBC) [Entitic vol] 85.8 fL 81-99 [facility] Mean corpuscular hemoglobin (MCH) determinationOrdered By: Megan Montoya on 09-10-2024 MCH (RBC) [Entitic mass] 26.1 pg Low 27.0-32.0 [facility] Mean corpuscular hemoglobin concentration (MCHC) determinationOrdered By: Megan Montoya on 09-10-2024 MCHC (RBC) [Mass/Vol] 30.4 g/dL Low 32-36 [facility] Mean platelet volume determi nationOrdered By: Megan Montoya on 09-10-2024 Platelet mean volume (Bld) [Entitic vol] 9.5 fL 6.2-12.0 [facility] Platelet countOrdered By: Johnathan Guzman on 09-10-2024 Platelets (Bld) [#/Vol] 485 10*3/uL High 150-450 [facility] Potassium measurementOrdered By: Megan Montoya on 09-10-2024 Potassium [Moles/Vol] 4.5 mmol/L 3.5-5.1 [facility] RBC Auto (Bld) [#/Vol]Ordere d By: Megan Montoya on 09-10-2024 RBC (Bld) [#/Vol] 3.72 10*6/uL Low 4.2-5.4 [facility] Serum anion gap measurementO rdered By: Megan Montoya on 09-10-2024 Anion gap [Moles/Vol] 5 mmol/L 5-15 [facility] Serum or plasma calcium reyna urement (mass/volume)Ordered By: Megan Montoya on 09-10-2024 Calcium [Mass/Vol] 9.0 mg/dL 8.5-10.1 [facility] Serum or plasma creatinine m easurement (mass/volume)Ordered By: Megan Montoya on 09-10-2024 Creatinine [Mass/Vol] 1.23 mg/dL High 0.55-1.02 [facility] Comment on above: The validity of the calculated GFR & GFRAA in patients over 70 years has not been determined. Clinical correlation is essential. Serum or plasma urea nitroge n measurement (mass/volume)Ordered By: Megan Montoya on 09-10-2024 Urea nitrogen [Mass/Vol] 22 mg/dL High 7-18 [facility] Sodium levelOrdered By: Juan C Montoya on 09-10-2024 Sodium [Moles/Vol] 137 mmol/L 136-145 [facility] White blood cell (WBC) count Ordered By: Megan Montoya on 09-10-2024 WBC (Bld) [#/Vol] 7.7 10*3/uL 4.4-11.0 [facility] Urine Cultureon 09-06-2024 URC UNKNOWN METHOD OF COLLECTION Proteus mirabilis [place] Count 50,000-80,000 Klebsiella pneumoniae sp pneum Klebsiella [...] TMP SMX Islt AGATA <=20 S Normal [facility] Comment on above: Performed By: #### L [id number] #### [facility] [address] [place], [address] Urinalysis, Completeon 09-04 BACTERIA 4+ /hpf Normal None Seen [facility] Comment on above: Order Comment: UNKNO WN METHOD OF COLLECTIONCLEAN CATCH Performed By: #### L [id number] #### [facility] [address] [place], [address] EPI,SQUAMOUS 10-25 SEEN Normal 5-10 [facility] Comment on above: Order Comment: UNKNO WN METHOD OF COLLECTIONCLEAN CATCH Performed By: #### L [id number] #### [facility] [address] [place], [address] Mucus Ql (Urine sed) 1+ /hpf Normal [facility] Comment on above: Order Comment: UNKNO WN METHOD OF COLLECTIONCLEAN CATCH Performed By: #### L [id number] #### [facility] [address] [place], [address] RBC 5-10 SEEN Normal 0-5 [facility] Comment on above: Order Comment: UNKNO WN METHOD OF COLLECTIONCLEAN CATCH Performed By: #### L [id number] #### [facility] [address] [place], [address] WBC 50-100 SEEN Normal 0-5 [facility] Comment on above: Order Comment: UNKNO WN METHOD OF COLLECTIONCLEAN CATCH Performed By: #### L [id number] #### [facility] [address] [place], [address] Basic Metabolic Profile (BMP )on 09-03-2024 BUN/CRE 20.7 RATIO High 10-20 [facility] Comment on above: Order Comment: 104-1 Performed By: #### L [id number] #### [facility] [address] [place], [address] CA,Total 9.4 mg/dL Normal 8.5-10.1 [facility] Comment on above: Order Comment: 104-1 Performed By: #### L [id number] #### [facility] [address] [place], [address] Chloride [Moles/Vol] 109 mmol/L High 98-107 [facility] Comment on above: Order Comment: 104-1 Performed By: #### L [id number] #### [facility] [address] [place], [address] CO2 [Moles/Vol] 21.0 mmol/L Normal 21.0-32.0 [facility] Comment on above: Order Comment: 104-1 Performed By: #### L [id number] #### [facility] [address] [place], [address] Creatinine [Mass/Vol] 0.92 mg/dL Normal 0.55-1.02 [facility] Comment on above: Order Comment: 104-1 Result Comment: The validity of the calculated GFR GFRAA in patients over 70 years has not been determined. Clinical correlation is essential. Performed By: #### L [id number] #### [facility] [address] [place], [address] EST GFR - AA 75 mL/min Normal >60 [facility] Comment on above: Order Comment: 104-1 Result Comment: Afri can Icelandic GFR Calc Performed By: #### L [id number] #### [facility] [address] [place], [address] GAP 9 Normal 5-15 [facility] Comment on above: Order Comment: 104-1 Performed By: #### L [id number] #### [facility] [address] [place], [address] GFR/1.73 sq M.predicted among non-blacks MDRD (S/P/Bld) [Vol rate/Area] 62 mL/min/{1.73_m2} Normal >60 [facility] Comment on above: Order Comment: 104-1 Result Comment: Non- GFR Calc Performed By: #### L [id number] #### [facility] [address] [place], [address] Glucose [Mass/Vol] 115 mg/dL High 74-106 [facility] Comment on above: Order Comment: 104-1 Result Comment: Fast ing Glucose result from 100 to 125 mg/dL suggests IMPAIRED HOMEOSTASIS per A.D.A. criteria. Performed By: #### L [id number] #### [facility] [address] [place], [address] Potassium [Moles/Vol] 4.4 mmol/L Normal 3.5-5.1 [facility] Comment on above: Order Comment: 104-1 Performed By: #### L [id number] #### [facility] [address] [place], [address] Sodium [Moles/Vol] 139 mmol/L Normal 136-145 [facility] Comment on above: Order Comment: 104-1 Performed By: #### L [id number] #### [facility] [address] [place], [address] Urea nitrogen [Mass/Vol] 19 mg/dL High 7-18 [facility] Comment on above: Order Comment: 104-1 Performed By: #### L [id number] #### [facility] [address] [place], [address] Bilirubin Test strip Ql (U)O rdered By: Megan Montoya on 09-03-2024 Bilirubin Ql (U) Negative Negative [facility] Blood urea nitrogen (BUN)/cr eatinine ratioOrdered By: Megan Montoya on 09-03-2024 Urea nitrogen/Creatinine [Mass ratio] 20.7 mg/mg High 10-20 [facility] CBC-Complete Blood Cnt No Di ffon 09-03-2024 Erythrocyte distribution width (RBC) [Ratio] 17.9 % High 11.6-14.6 [facility] Comment on above: Order Comment: 104-1 Performed By: #### L [id number] #### [facility] [address] [place], [address] Hematocrit (Bld) [Volume fraction] 30.8 % Low 37-47 [facility] Comment on above: Order Comment: 104-1 Performed By: #### L [id number] #### [facility] [address] [place], [address] Hemoglobin (Bld) [Mass/Vol] 9.5 g/dL Low 12.0-15.0 [facility] Comment on above: Order Comment: 104-1 Performed By: #### L [id number] #### [facility] [address] [place], [address] MCH (RBC) [Entitic mass] 25.7 pg Low 27.0-32.0 [facility] Comment on above: Order Comment: 104-1 Performed By: #### L [id number] #### [facility] [address] [place], [address] MCHC (RBC) [Mass/Vol] 30.8 g/dL Low 32-36 [facility] Comment on above: Order Comment: 104-1 Performed By: #### L [id number] #### [facility] [address] [place], [address] MCV (RBC) [Entitic vol] 83.5 fL Normal 81-99 [facility] Comment on above: Order Comment: 104-1 Performed By: #### L [id number] #### [facility] [address] [place], [address] Platelet mean volume (Bld) [Entitic vol] 10.2 fL Normal 6.2-12.0 [facility] Comment on above: Order Comment: 104-1 Performed By: #### L [id number] #### [facility] [address] [place], [address] Platelets (Bld) [#/Vol] 431 10*3/uL Normal 150-450 [facility] Comment on above: Order Comment: 104-1 Performed By: #### L [id number] #### [facility] [address] [place], [address] RBC (Bld) [#/Vol] 3.69 10*6/uL Low 4.2-5.4 [facility] Comment on above: Order Comment: 104-1 Performed By: #### L [id number] #### [facility] [address] [place], [address] RDW SD 54.3 fl High 35.1-43.9 [facility] Comment on above: Order Comment: 104-1 Performed By: #### L [id number] #### [facility] [address] [place], [address] WBC (Bld) [#/Vol] 10.6 10*3/uL Normal 4.4-11.0 [facility] Comment on above: Order Comment: 104-1 Performed By: #### L [id number] #### [facility] [address] [place], [address] Carbon dioxide measurementOr dered By: Megan Montoya on 09-03-2024 CO2 [Moles/Vol] 21.0 mmol/L 21.0-32.0 [facility] Chloride measurementOrdered By: Megan Montoya on 09-03-2024 Chloride [Moles/Vol] 109 mmol/L High 98-107 [facility] Epithelial cells.squamous LM Ql (Urine sed)Ordered By: Megan Montoya on 09-03-2024 Epithelial cells.squamous LM.HPF (Urine sed) [#/Area] 10 /[HPF] 5-10 [facility] Erythrocyte distribution wid th ratioOrdered By: Megan Montoya on 09-03-2024 Erythrocyte distribution width (RBC) [Ratio] 17.9 % High 11.6-14.6 [facility] Erythrocyte distribution wid th standard deviationOrdered By: Megan Montoya on 09-03-2024 Erythrocyte distribution width (RBC) [Entitic vol] 54.3 fL High 35.1-43.9 [facility] Estimated glomerular filtrat ion rate (GFR) AmericanOrdered By: Megan Montoya on 09-03-2024 Estimated GFR (MDRD) Amer 75 mL/min >60 [facility] Comment on above: GFR Calc Glomerular filtration rate ( GFR) estimationOrdered By: Megan Montoya on 09-03-2024 Estimated GFR (MDRD) Non-Af Amer 62 mL/min >60 [facility] Comment on above: Non- GFR Calc Glucose Ql (U)Ordered By: Johnathan Guzman on 09-03-2024 Urine Glucose (UA) Normal mg/dl Normal [facility] Glucose measurementOrdered B y: Megan Montoya on 09-03-2024 Glucose [Mass/Vol] 115 mg/dL High 74-106 [facility] Comment on above: Fasting Glucose resu lt from 100 to 125 mg/dL suggests IMPAIRED HOMEOSTASIS per A.D.A. criteria. Hematocrit Auto (Bld) [Volum e fraction]Ordered By: Megan Montoya on 09-03-2024 Hematocrit (Bld) [Volume fraction] 30.8 % Low 37-47 [facility] Hemoglobin measurementOrdere d By: Megan Montoya on 09-03-2024 Hemoglobin (Bld) [Mass/Vol] 9.5 g/dL Low 12.0-15.0 [facility] Ketones Test strip Ql (U)Ord ered By: Megan Montoya on 09-03-2024 Ketones Ql (U) 5 mg/dl High Negative [facility] MCV (mean corpuscular volume ) determinationOrdered By: Megan Montoya on 09-03-2024 MCV (RBC) [Entitic vol] 83.5 fL 81-99 [facility] Mean corpuscular hemoglobin (MCH) determinationOrdered By: Megan Montoya on 09-03-2024 MCH (RBC) [Entitic mass] 25.7 pg Low 27.0-32.0 [facility] Mean corpuscular hemoglobin concentration (MCHC) determinationOrdered By: Megan Montoya on 09-03-2024 MCHC (RBC) [Mass/Vol] 30.8 g/dL Low 32-36 [facility] Mean platelet volume determi nationOrdered By: Megan Montoya on 09-03-2024 Platelet mean volume (Bld) [Entitic vol] 10.2 fL 6.2-12.0 [facility] Microscopic analysis of urin e for red blood cells (RBC)Ordered By: Megan Montoya on 09-03-2024 Urine RBC 5-10 SEEN /hpf 0-5 [facility] Mucus LM Ql (Urine sed)Order ed By: Megan Montoya on 09-03-2024 Mucus Ql (Urine sed) 1+ /hpf [facility] Nitrite Test strip Ql (U)Ord ered By: Megan Montoya on 09-03-2024 Nitrite Ql (U) Positive High Negative [facility] Platelet countOrdered By: Johnathan Guzman on 09-03-2024 Platelets (Bld) [#/Vol] 431 10*3/uL 150-450 [facility] Potassium measurementOrdered By: Megan Montoya on 09-03-2024 Potassium [Moles/Vol] 4.4 mmol/L 3.5-5.1 [facility] Protein Test strip Ql (U)Ord ered By: Megan Montoya on 09-03-2024 Protein Ql (U) 100 mg/dl High Negative [facility] RBC Auto (Bld) [#/Vol]Ordere d By: Megan Montoya on 09-03-2024 RBC (Bld) [#/Vol] 3.69 10*6/uL Low 4.2-5.4 [facility] Serum anion gap measurementO rdered By: Megan Montoya on 09-03-2024 Anion gap [Moles/Vol] 9 mmol/L 5-15 [facility] Serum or plasma calcium reyna urement (mass/volume)Ordered By: Megan Montoya on 09-03-2024 Calcium [Mass/Vol] 9.4 mg/dL 8.5-10.1 [facility] Serum or plasma creatinine m easurement (mass/volume)Ordered By: Megan Montoya on 09-03-2024 Creatinine [Mass/Vol] 0.92 mg/dL 0.55-1.02 [facility] Comment on above: The validity of the calculated GFR & GFRAA in patients over 70 years has not been determined. Clinical correlation is essential. Serum or plasma urea nitroge n measurement (mass/volume)Ordered By: Megan Montoya on 09-03-2024 Urea nitrogen [Mass/Vol] 19 mg/dL High 7-18 [facility] Sodium levelOrdered By: Juan C Montoya on 09-03-2024 Sodium [Moles/Vol] 139 mmol/L 136-145 [facility] Urine blood detectionOrdered By: Megan Montoya on 09-03-2024 Urine Occult Blood 150 /ul High Negative [facility] Urine clarityOrdered By: Pola Montoya on 09-03-2024 Clarity (U) Cloudy Clear [facility] Urine color determinationOrd ered By: Megan Montoya on 09-03-2024 Color (U) Yellow Yellow [facility] Urine cultureOrdered By: Pola Montoya on 09-03-2024 Bacteria identified Cx Nom (U) Proteus mirabilis Abnormal [facility] Bacteria identified Cx Nom (U) Klebsiella pneumoniae sp pneum Abnormal [facility] Bacteria identified Cx Nom (U) Proteus mirabilis Abnormal [facility] Bacteria identified Cx Nom (U) Klebsiella pneumoniae sp pneum Abnormal [facility] Urine leukocyte esterase det ection by dipstickOrdered By: Megan Montoya on 09-03-2024 Leukocyte esterase Test strip Ql (U) 500 /ul High Negative [facility] Urine pHOrdered By: Megan jimenez on 09-03-2024 pH (U) 6.0 [pH] 5.0 - 8.0 [facility] Urine sediment bacteria coun t by microscopy (number/high power field)Ordered By: Megan Montoya on 09-03-2024 Bacteria LM.HPF (Urine sed) [#/Area] 4 /[HPF] None Seen [facility] Urine specific gravity measu rementOrdered By: Megan Montoya on 09-03-2024 Specific gravity (U) [Rel density] 1.020 1.002-1.030 [facility] Urobilinogen Ql (U)Ordered B y: Megan Montoya on 09-03-2024 Urine Urobilinogen Normal mg/dl Normal [facility] White blood cell (WBC) count Ordered By: Megan Montoya on 09-03-2024 WBC (Bld) [#/Vol] 10.6 10*3/uL 4.4-11.0 [facility] White blood cell countOrdere d By: Megan Montoya on 09-03-2024 Urine WBC 50-100 SEEN /hpf 0-5 [facility] [id number] 08-27-2024 [id number] Patient Choice Patient Name: MEL POP Date of : 1940 Normal [facility] Progress Noteon 08-22-2024 Progress Note Normal [facility] Albumin to globulin ratioOrd ered By: Megan Montoya on 08-20-2024 Albumin/Globulin [Mass ratio] 0.7 {ratio} Low 0.9-2.4 [facility] Bilirubin, totalOrdered By: Megan Montoya on 08-20-2024 Bilirubin [Mass/Vol] 0.60 mg/dL 0.20-1.00 [facility] Comment on above: For patients on eltr ombopag therapy, use of Dimension Preston TBIL is not recommended. Blood urea nitrogen (BUN)/cr eatinine ratioOrdered By: Megan Montoya on 08-20-2024 Urea nitrogen/Creatinine [Mass ratio] 11.2 mg/mg 10-20 [facility] CBC-Complete Blood Cnt No Di ffon 08-20-2024 Erythrocyte distribution width (RBC) [Ratio] 19.2 % High 11.6-14.6 [facility] Comment on above: Performed By: #### L 100.0500, L500.4050 #### [facility] Laboratory [address] [place], [address] Hematocrit (Bld) [Volume fraction] 33.4 % Low 37-47 [facility] Comment on above: Performed By: #### L 100.0500, L500.4050 #### [facility] [address] [place], [address] Hemoglobin (Bld) [Mass/Vol] 10.4 g/dL Low 12.0-15.0 [facility] Comment on above: Performed By: #### L 100.0500, L500.4050 #### [facility] [address] [place], [address] MCH (RBC) [Entitic mass] 26.3 pg Low 27.0-32.0 [facility] Comment on above: Performed By: #### L 100.0500, L500.4050 #### [facility] [address] [place], [address] MCHC (RBC) [Mass/Vol] 31.1 g/dL Low 32-36 [facility] Comment on above: Performed By: #### L 100.0500, L500.4050 #### [facility] [address] [place], [address] MCV (RBC) [Entitic vol] 84.6 fL Normal 81-99 [facility] Comment on above: Performed By: #### L 100.0500, L500.4050 #### [facility] [address] [place], [address] Platelet mean volume (Bld) [Entitic vol] 9.7 fL Normal 6.2-12.0 [facility] Comment on above: Performed By: #### L 100.0500, L500.4050 #### [facility] [address] [place], [address] Platelets (Bld) [#/Vol] 405 10*3/uL Normal 150-450 [facility] Comment on above: Performed By: #### L 100.0500, L500.4050 #### [facility] [address] [place], [address] RBC (Bld) [#/Vol] 3.95 10*6/uL Low 4.2-5.4 [facility] Comment on above: Performed By: #### L 100.0500, L500.4050 #### [facility] [address] [place], [address] RDW SD 58.9 fl High 35.1-43.9 [facility] Comment on above: Performed By: #### L 100.0500, L500.4050 #### [facility] [address] [place], [address] WBC (Bld) [#/Vol] 5.9 10*3/uL Normal 4.4-11.0 [facility] Comment on above: Performed By: #### L 100.0500, L500.4050 #### [facility] [address] [place], [address] Carbon dioxide measurementOr dered By: Megan Montoya on 08-20-2024 CO2 [Moles/Vol] 22.0 mmol/L 21.0-32.0 [facility] Chloride measurementOrdered By: Megan Montoya on 08-20-2024 Chloride [Moles/Vol] 109 mmol/L High 98-107 [facility] Metabolic Prof ilon 08-20-2024 Albumin [Mass/Vol] 2.7 g/dL Low 3.2-5.0 [facility] Comment on above: Performed By: #### L 100.0500, L500.4050 #### [facility] [address] [place], [address] Albumin/Globulin [Mass ratio] 0.7 {ratio} Low 0.9-2.4 [facility] Comment on above: Performed By: #### L 100.0500, L500.4050 #### [facility] [address] [place], [address] ALK P 117 U/L Normal 45-117 [facility] Comment on above: Performed By: #### L 100.0500, L500.4050 #### [facility] [address] [place], [address] ALT [Catalytic activity/Vol] 18 U/L Normal 13-56 [facility] Comment on above: Performed By: #### L 100.0500, L500.4050 #### [facility] [address] [place], [address] AST [Catalytic activity/Vol] 18 U/L Normal 15-37 [facility] Comment on above: Result Comment: Slig ht Hemolysis, Result may be falsely increased. Performed By: #### L 100.0500, L500.4050 #### [facility] [address] [place], [address] Bilirubin [Mass/Vol] 0.60 mg/dL Normal 0.20-1.00 [facility] Comment on above: Result Comment: For patients on eltrombopag therapy, use of Dimension Preston TBIL is not recommended. Performed By: #### L 100.0500, L500.4050 #### [facility] [address] [place], [address] BUN/CRE 11.2 RATIO Normal 10-20 [facility] Comment on above: Performed By: #### L 100.0500, L500.4050 #### [facility] [address] [place], [address] CA,Total 9.0 mg/dL Normal 8.5-10.1 [facility] Comment on above: Performed By: #### L 100.0500, L500.4050 #### [facility] [address] [place], [address] Chloride [Moles/Vol] 109 mmol/L High 98-107 [facility] Comment on above: Performed By: #### L 100.0500, [id number] #### [facility] [address] [place], [address] CO2 [Moles/Vol] 22.0 mmol/L Normal 21.0-32.0 [facility] Comment on above: Performed By: #### L 100.0500, [id number] #### [facility] [address] [place], [address] Creatinine [Mass/Vol] 0.98 mg/dL Normal 0.55-1.02 [facility] Comment on above: Result Comment: The validity of the calculated GFR GFRAA in patients over 70 years has not been determined. Clinical correlation is essential. Performed By: #### L 100.0500, L500.4050 #### [facility] [address] [place], [address] EST GFR - AA 69 mL/min Normal >60 [facility] Comment on above: Result Comment: Afri can Icelandic GFR Calc Performed By: #### L 100.0500, L500.4050 #### [facility] [address] [place], [address] GAP 7 Normal 5-15 [facility] Comment on above: Performed By: #### L 100.0500, L500.4050 #### [facility] [address] [place], [address] GFR/1.73 sq M.predicted among non-blacks MDRD (S/P/Bld) [Vol rate/Area] 57 mL/min/{1.73_m2} Low >60 [facility] Comment on above: Result Comment: Non- GFR Calc Performed By: #### L 100.0500, L500.4050 #### [facility] [address] [place], [address] Globulin (S) [Mass/Vol] 4.1 g/dL Normal 2.2-4.2 [facility] Comment on above: Performed By: #### L 100.0500, L500.4050 #### [facility] [address] [place], [address] Glucose [Mass/Vol] 97 mg/dL Normal 74-106 [facility] Comment on above: Performed By: #### L 100.0500, L500.4050 #### [facility] [address] [place], [address] Potassium [Moles/Vol] 4.2 mmol/L Normal 3.5-5.1 [facility] Comment on above: Result Comment: Slig ht Hemolysis, Result may be falsely increased. Performed By: #### L 100.0500, L500.4050 #### [facility] [address] [place], [address] Sodium [Moles/Vol] 138 mmol/L Normal 136-145 [facility] Comment on above: Performed By: #### L 100.0500, L500.4050 #### [facility] [address] [place], [address] T PROT 6.8 g/dL Normal 6.4-8.2 [facility] Comment on above: Performed By: #### L 100.0500, L500.4050 #### [facility] [address] [place], [address] Urea nitrogen [Mass/Vol] 11 mg/dL Normal 7-18 [facility] Comment on above: Performed By: #### L 100.0500, L500.4050 #### [facility] [address] [place], [address] Erythrocyte distribution wid th ratioOrdered By: Megan Montoya on 08-20-2024 Erythrocyte distribution width (RBC) [Ratio] 19.2 % High 11.6-14.6 [facility] Erythrocyte distribution wid th standard deviationOrdered By: Megan Montoya on 08-20-2024 Erythrocyte distribution width (RBC) [Entitic vol] 58.9 fL High 35.1-43.9 [facility] Estimated glomerular filtrat ion rate (GFR) AmericanOrdered By: Megan Montoya on 08-20-2024 Estimated GFR (MDRD) Amer 69 mL/min >60 [facility] Comment on above: GFR Calc Glomerular filtration rate ( GFR) estimationOrdered By: Megan Montoya on 08-20-2024 Estimated GFR (MDRD) Non-Af Amer 57 mL/min Low >60 [facility] Comment on above: Non- GFR Calc Glucose measurementOrdered B y: Megan Montoya on 08-20-2024 Glucose [Mass/Vol] 97 mg/dL 74-106 [facility] Hematocrit Auto (Bld) [Volum e fraction]Ordered By: Megan Montoya on 08-20-2024 Hematocrit (Bld) [Volume fraction] 33.4 % Low 37-47 [facility] Hemoglobin measurementOrdere d By: Megan Montoya on 08-20-2024 Hemoglobin (Bld) [Mass/Vol] 10.4 g/dL Low 12.0-15.0 [facility] Laboratory - Chemistry and C hemistry - challengeOrdered By: Megan Montoya on 08-20-2024 AST [Catalytic activity/Vol] 18 U/L 15-37 [facility] Comment on above: Slight Hemolysis, Re sult may be falsely increased. MCV (mean corpuscular volume ) determinationOrdered By: Megan Montoya on 08-20-2024 MCV (RBC) [Entitic vol] 84.6 fL 81-99 [facility] Mean corpuscular hemoglobin (MCH) determinationOrdered By: Megan Montoya on 08-20-2024 MCH (RBC) [Entitic mass] 26.3 pg Low 27.0-32.0 [facility] Mean corpuscular hemoglobin concentration (MCHC) determinationOrdered By: Megan Montoya on 08-20-2024 MCHC (RBC) [Mass/Vol] 31.1 g/dL Low 32-36 [facility] Mean platelet volume determi nationOrdered By: Megan Montoya on 08-20-2024 Platelet mean volume (Bld) [Entitic vol] 9.7 fL 6.2-12.0 [facility] Platelet countOrdered By: Johnathan Guzman on 08-20-2024 Platelets (Bld) [#/Vol] 405 10*3/uL 150-450 [facility] Potassium measurementOrdered By: Megan Montoya on 08-20-2024 Potassium [Moles/Vol] 4.2 mmol/L 3.5-5.1 [facility] Comment on above: Slight Hemolysis, Re sult may be falsely increased. RBC Auto (Bld) [#/Vol]Ordere d By: Megan Montoya on 08-20-2024 RBC (Bld) [#/Vol] 3.95 10*6/uL Low 4.2-5.4 [facility] Serum anion gap measurementO rdered By: Megan Montoya on 08-20-2024 Anion gap [Moles/Vol] 7 mmol/L 5-15 [facility] Serum globulin measurementOr dered By: Megan Montoya on 08-20-2024 Globulin (S) [Mass/Vol] 4.1 g/dL 2.2-4.2 [facility] Serum or plasma alanine hinojosa otransferase (ALT) measurementOrdered By: Megan Montoya on 08-20-2024 ALT [Catalytic activity/Vol] 18 U/L 13-56 [facility] Serum or plasma albumin reyna urement (mass/volume)Ordered By: Megan Montoya on 08-20-2024 Albumin [Mass/Vol] 2.7 g/dL Low 3.2-5.0 [facility] Serum or plasma alkaline silvia sphatase measurementOrdered By: Megan Montoya on 08-20-2024 ALP [Catalytic activity/Vol] 117 U/L 45-117 [facility] Serum or plasma calcium reyna urement (mass/volume)Ordered By: Megan Montoya on 08-20-2024 Calcium [Mass/Vol] 9.0 mg/dL 8.5-10.1 [facility] Serum or plasma creatinine m easurement (mass/volume)Ordered By: Megan Montoya on 08-20-2024 Creatinine [Mass/Vol] 0.98 mg/dL 0.55-1.02 [facility] Comment on above: The validity of the calculated GFR & GFRAA in patients over 70 years has not been determined. Clinical correlation is essential. Serum or plasma urea nitroge n measurement (mass/volume)Ordered By: Megan Montoya on 08-20-2024 Urea nitrogen [Mass/Vol] 11 mg/dL 7-18 [facility] Sodium levelOrdered By: Juan C Montoya on 08-20-2024 Sodium [Moles/Vol] 138 mmol/L 136-145 [facility] Total proteinOrdered By: Pola Montoya on 08-20-2024 Protein [Mass/Vol] 6.8 g/dL 6.4-8.2 [facility] White blood cell (WBC) count Ordered By: Megan Montoya on 08-20-2024 WBC (Bld) [#/Vol] 5.9 10*3/uL 4.4-11.0 [facility] [id number] 08-16-2024 [id number] Normal [facility] [id number] Normal [facility] [id number] MAR & Discharge med list transmitted to [facility] via [employer] per TCC request. Electronically signed by JESSICA Leone Normal [facility] [id number] Normal [facility] Laboratory - Chemistry and C hemistry - challengeon 08-16-2024 Glucose [Mass/Vol] 120 mg/dL High 70 - 100 mg/dL [facility] No Panel Informationon 08-16 Interpretation and review of laboratory results Abnormal [facility] Performed by: [facility], [address] [place] [address], [place] [id number] CLIA ID: [id number] [facility] Nursing Noteon 08-16-2024 Nursing Note Patient picked up fo r transfer to [facility] by stretcher. Report already called to GENET Garcia. Normal [facility] Nursing Note Telephone report erin led to GENET Garcia at [facility]. Normal [facility] Progress Noteon 08-16-2024 Progress Note Normal [facility] 30on 08-15-2024 30 Normal [facility] [id number] 08-15-2024 [id number] Authorization is pending with [employer]. Ref# [id number] to be DC'd to [facility]. Dtr Fidel Sharma. CM to follow. Normal [facility] Progress Noteon 08-15-2024 Progress Note Normal [facility] 30on 08-14-2024 30 Normal [facility] [id number] 08-14-2024 [id number] Normal [facility] Progress Noteon 08-14-2024 Progress Note Normal [facility] Progress Note Normal [facility] Progress Note Normal [facility] 30on 08-13-2024 30 Normal [facility] 30 Normal [facility] [id number] 08-13-2024 [id number] Normal [facility] Progress Noteon 08-13-2024 Progress Note Normal [facility] Progress Note Normal [facility] 08-12-2024 30 Normal [facility] Progress Noteon 08-12-2024 Progress Note Normal [facility] 30on 08-11-2024 30 Normal [facility] 30 Normal [facility] [id number] 08-11-2024 [id number] CM noted DC orders i n place, Dgt touring facilities over the weekend. [facility] pending acceptance, updates sent via [employer]. Normal [facility] Progress Noteon 08-11-2024 Progress Note Normal [facility] 30on 08-10-2024 30 Normal [facility] [id number] 08-10-2024 [id number] Normal [facility] Progress Noteon 08-10-2024 Progress Note Normal [facility] [id number] 08-09-2024 [id number] Normal [facility] [id number] Normal [facility] [id number] Updated PT/OT notes placed to SN[facility] via [employer] per TCC request. Await review and response regarding ability to accept. TCC notified. Electronically signed by HARNESS FITTER Aracelis Gardiner [facility] [phone] Patient is medically ready for dc. PT/OT both continuing to recommend SNF. [facility] manager combination asked to start auth. Plan to dc back to [facility] pending auth [facility] Progress Noteon 08-09-[address] [facility] [id number] 08-08-2024 [id number] [facility] Progress Noteon 08-08-[address] [facility] Progress Note Normal [facility] Progress Note Normal [facility] 30on 08-07-2024 30 Normal [facility] 30 Normal [facility] 30 Normal [facility] [id number] 08-07-2024 [id number] [facility] Progress Noteon 08-07-[address] [facility] 30on 08-06-2024 30 Normal [facility] 30 Normal [facility] [id number] 08-06-2024 [id number] Pt cont's on IV AtBs '. Plan is for pt to return to [facility]. Auth and HECTOR needed prior to DC. CM to follow. [facility] [id number] [facility] Comprehensive metabolic 1998 panelon 08-06-2024 Albumin [Mass/Vol] 2.4 g/dL Low 3.4 - 4.8 g/dL [facility] ALP [Catalytic activity/Vol] 72 U/L 40 - 150 U/L [facility] ALT [Catalytic activity/Vol] 24 U/L NINF - 30 U/L [facility] Anion gap [Moles/Vol] 7 mmol/L 3 - 13 mmol/L [facility] AST [Catalytic activity/Vol] 21 U/L NINF - 34 U/L [facility] Bilirubin [Mass/Vol] 0.9 mg/dL NINF - 1.2 mg/dL [facility] Calcium [Mass/Vol] 8.4 mg/dL Low 8.8 - 10. 0 mg/dL [facility] Chloride [Moles/Vol] 115 mmol/L High 98 - 10 7 mmol/L [facility] CO2 [Moles/Vol] 17 mmol/L Low 23 - 31 mmol/L [facility] Creatinine [Mass/Vol] 0.91 mg/dL 0.57 - 1.11 mg/dL [facility] GFR/1.73 sq M.predicted (S/P/Bld) [Vol rate/Area] 62.3 mL/min - PINF [facility] Comment on above: Calculation based on the Chronic Kidney Disease Epidemiology Collaboration (CKD-EPI) equation refit without adjustment for race Glucose [Mass/Vol] 92 mg/dL 82 - 115 mg/dL [facility] Interpretation and review of laboratory results Abnormal [facility] Potassium [Moles/Vol] 3.8 mmol/L 3.5 - 5.1 mmol/L [facility] Comment on above: Plasma potassium chris ues may be up to 0.5 mmol/L lower than serum values. Protein [Mass/Vol] 5.5 g/dL Low 6.4 - 8.3 g/dL [facility] Sodium [Moles/Vol] 139 mmol/L 136 - 145 mmol/L [facility] Urea nitrogen [Mass/Vol] 9 mg/dL 9 - 23 mg/dL [facility] Consulton 08-06-2024 Consult Normal [facility] Progress Noteon 08-06-2024 Progress Note Normal [facility] Progress Note Normal [facility] 30on 08-05-2024 30 Normal [facility] CBC W Auto Differential pane l (Bld)Ordered By: Frank Milligan on 08-05-2024 Basophils (Bld) [#/Vol] 0 10*3/uL 0.0 - 0.2 10*3/uL [facility] Basophils/100 WBC (Bld) 0.3 % 0.0 - 2.0 % [facility] Eosinophils (Bld) [#/Vol] 0.1 10*3/uL 0.0 - 0.5 10*3/uL [facility] Eosinophils/100 WBC (Bld) 1.6 % 0.0 - 6.0 % [facility] Erythrocyte distribution width (RBC) [Ratio] 18.9 % High 11.5 - 15.0 % [facility] Hematocrit (Bld) [Volume fraction] 33.3 % Low 35.0 - 47.0 % [facility] Hemoglobin (Bld) [Mass/Vol] 10.3 g/dL Low 11.7 - 16.0 g/dL [facility] Immature granulocytes (Bld) [#/Vol] 0.1 10*3/uL High NINF - 0.1 10*3/uL [facility] Immature granulocytes/100 WBC (Bld) 0.7 % 0.0 - 2.0 % [facility] Interpretation and review of laboratory results Abnormal [facility] Lymphocytes (Bld) [#/Vol] 1.1 10*3/uL 1.0 - 4.3 10*3/uL [facility] Lymphocytes/100 WBC (Bld) 15.6 % 15.0 - 45.0 % [facility] MCH (RBC) [Entitic mass] 26 pg 26.0 - 34.0 pg [facility] MCHC (RBC) [Mass/Vol] 30.9 % 30.5 - 36.0 % [facility] MCV (RBC) [Entitic vol] 84.1 fL 77.0 - 99.0 fL [facility] Monocytes (Bld) [#/Vol] 0.7 10*3/uL 0.0 - 0.9 10*3/uL [facility] Monocytes/100 WBC (Bld) 9.9 % 5.0 - 13.0 % [facility] Neutrophils (Bld) [#/Vol] 5.3 10*3/uL 1.8 - 7.5 10*3/uL [facility] Neutrophils/100 WBC (Bld) 71.9 % 38.0 - 82.0 % [facility] Nucleated RBC/100 WBC (Bld) [Ratio] 0 % [facility] Platelet mean volume (Bld) [Entitic vol] 9.2 fL 9.0 - 12.7 fL [facility] Platelets (Bld) [#/Vol] 235 10*3/uL 140 - 440 10*3/uL [facility] RBC (Bld) [#/Vol] 3.96 10*6/uL 3.80 - 5.2 0 10*6/uL [facility] WBC (Bld) [#/Vol] 7.3 10*3/uL 3.6 - 10.7 10*3/uL [facility] CBC W Auto Differential pane l (Bld)Ordered By: Aden Baires on 08-05-2024 Basophils (Bld) [#/Vol] 0 10*3/uL 0.0 - 0.2 10*3/uL [facility] Basophils/100 WBC (Bld) 0.3 % 0.0 - 2.0 % [facility] Eosinophils (Bld) [#/Vol] 0.1 10*3/uL 0.0 - 0.5 10*3/uL [facility] Eosinophils/100 WBC (Bld) 1.5 % 0.0 - 6.0 % [facility] Erythrocyte distribution width (RBC) [Ratio] 19.2 % High 11.5 - 15.0 % [facility] Hematocrit (Bld) [Volume fraction] 31.9 % Low 35.0 - 47.0 % [facility] Hemoglobin (Bld) [Mass/Vol] 9.9 g/dL Low 11.7 - 16.0 g/dL [facility] Immature granulocytes (Bld) [#/Vol] 0 10*3/uL NINF - 0.1 10*3/uL [facility] Immature granulocytes/100 WBC (Bld) 0.5 % 0.0 - 2.0 % [facility] Interpretation and review of laboratory results Abnormal [facility] Lymphocytes (Bld) [#/Vol] 1.1 10*3/uL 1.0 - 4.3 10*3/uL [facility] Lymphocytes/100 WBC (Bld) 16.6 % 15.0 - 45.0 % [facility] MCH (RBC) [Entitic mass] 26.2 pg 26.0 - 34.0 pg [facility] MCHC (RBC) [Mass/Vol] 31 % 30.5 - 36.0 % [facility] MCV (RBC) [Entitic vol] 84.4 fL 77.0 - 99.0 fL [facility] Monocytes (Bld) [#/Vol] 0.6 10*3/uL 0.0 - 0.9 10*3/uL [facility] Monocytes/100 WBC (Bld) 9.1 % 5.0 - 13.0 % [facility] Neutrophils (Bld) [#/Vol] 4.7 10*3/uL 1.8 - 7.5 10*3/uL [facility] Neutrophils/100 WBC (Bld) 72 % 38.0 - 82.0 % [facility] Nucleated RBC/100 WBC (Bld) [Ratio] 0 % [facility] Platelet mean volume (Bld) [Entitic vol] 10 fL 9.0 - 12.7 fL [facility] Platelets (Bld) [#/Vol] 242 10*3/uL 140 - 440 10*3/uL [facility] RBC (Bld) [#/Vol] 3.78 10*6/uL Low 3.80 - 5.2 0 10*6/uL [facility] WBC (Bld) [#/Vol] 6.5 10*3/uL 3.6 - 10.7 10*3/uL [facility] CBC WITH AUTO DIFFERENTIALon 08-05-2024 Basophils (Bld) [#/Vol] 0.0 10*3/uL Normal 0.0-0.2 [facility] Comment on above: Performed By: #### L [id number] ####Material Requisitioner: VELMA VALADEZ ([id number])[facility])[address] [place] [address] Basophils/100 WBC (Bld) 0.3 % Normal 0.0-2.0 [facility] Comment on above: Performed By: #### L [id number] ####Material Requisitioner: VELMA VALADEZ ([id number])[facility])[address] [place] [address] [place] Eosinophils (Bld) [#/Vol] 0.1 10*3/uL Normal 0.0-0.5 [facility] Comment on above: Performed By: #### L [id number] ####Material Requisitioner: VELMA VALADEZ ([id number])[facility] [facility] ([facility])[address] [place] [address] [place] Eosinophils/100 WBC (Bld) 1.6 % Normal 0.0-6.0 [facility] Comment on above: Performed By: #### L [id number] ####Material Requisitioner: VELMA VALADEZ ([id number])[address] Erythrocyte distribution width (RBC) [Ratio] 18.9 % High 11.5-15.0 [facility] Comment on above: Performed By: #### L [id number] ####Material Requisitioner: VELMA VALADEZ ([id number])[address] Hematocrit (Bld) [Volume fraction] 33.3 % Low 35.0-47.0 [facility] Comment on above: Performed By: #### L [id number] ####Material Requisitioner: VELMA VALADEZ ([id number])[address] Hemoglobin (Bld) [Mass/Vol] 10.3 g/dL Low 11.7-16.0 [facility] Comment on above: Performed By: #### L [id number] ####Material Requisitioner: VELMA VALADEZ ([id number])[address] IMMATURE GRANS % 0.7 % Normal 0.0-2.0 [facility] Comment on above: Performed By: #### L [id number] ####Material Requisitioner: VELMA VALADEZ ([id number])[address] IMMATURE GRANS ABSOLUTE 0.1 10*3/uL High <0.1 [facility] Comment on above: Performed By: #### L [id number] ####Material Requisitioner: VELMA VALADEZ ([id number])[address] Lymphocytes (Bld) [#/Vol] 1.1 10*3/uL Normal 1.0-4.3 [facility] Comment on above: Performed By: #### L [id number] ####Material Requisitioner: VELMA VALADEZ ([id number])[facility])[address] [place] [address] Lymphocytes/100 WBC (Bld) 15.6 % Normal 15.0-45.0 [facility] Comment on above: Performed By: #### L [id number] ####Material Requisitioner: VELMA VALADEZ ([id number])[facility])[address] [place] [address] MCH (RBC) [Entitic mass] 26.0 pg Normal 26.0-34.0 [facility] Comment on above: Performed By: #### L [id number] ####Material Requisitioner: VELMA VALADEZ ([id number])[facility])[address] [place] [address] MCHC 30.9 % Normal 30.5-36.0 [facility] Comment on above: Performed By: #### L [id number] ####Material Requisitioner: VELMA VALADEZ ([id number])[facility] ([facility])[address] [place] [address] MCV (RBC) [Entitic vol] 84.1 fL Normal 77.0-99.0 [facility] Comment on above: Performed By: #### L [id number] ####Material Requisitioner: VELMA VALADEZ ([id number])[facility])[address] [place] [address] Monocytes (Bld) [#/Vol] 0.7 10*3/uL Normal 0.0-0.9 [facility] Comment on above: Performed By: #### L [id number] ####Material Requisitioner: VELMA VALADEZ ([id number])[facility])[address] [place] [address] Monocytes/100 WBC (Bld) 9.9 % Normal 5.0-13.0 [facility] Comment on above: Performed By: #### L [id number] ####Material Requisitioner: VELMA VALADEZ ([id number])[facility])[address] [place] [address] NEUTROPHILS ABSOLUTE 5.3 10*3/uL Normal 1.8-7.5 [facility] Comment on above: Performed By: #### L [id number] ####Material Requisitioner: VELMA VALADEZ ([id number])[facility] ([facility])[address] [place] [address] Neutrophils/100 WBC (Bld) 71.9 % Normal 38.0-82.0 [facility] Comment on above: Performed By: #### L [id number] ####Material Requisitioner: VELMA VALADEZ ([id number])[facility] ([facility])[address] [place] [address] NRBC 0.0 /100 WBCs Normal 0.0-2.0 [facility] Comment on above: Performed By: #### L [id number] ####Material Requisitioner: EVLMA VALADEZ ([id number])[facility] ([facility])[address] [place] [address] Platelet mean volume (Bld) [Entitic vol] 9.2 fL Normal 9.0-12.7 [facility] Comment on above: Performed By: #### L [id number] ####Material Requisitioner: VELMA VALADEZ ([id number])[facility] ([facility])[address] [place] [address] Platelets (Bld) [#/Vol] 235 10*3/uL Normal 140-440 [facility] Comment on above: Performed By: #### L [id number] ####Material Requisitioner: VELMA VALADEZ ([id number])[facility] ([facility])[address] [place] [address] RBC (Bld) [#/Vol] 3.96 10*6/uL Normal 3.80-5.20 [facility] Comment on above: Performed By: #### L [id number] ####Material Requisitioner: VELMA VALADEZ ([id number])[facility] ([facility])[address] [place] [address] [place] WBC (Bld) [#/Vol] 7.3 10*3/uL Normal 3.6-10.7 [facility] Comment on above: Performed By: #### L [id number] ####Material Requisitioner: VELMA VALADEZ ([id number])[facility])[address] [place] [address] Basophils (Bld) [#/Vol] 0.0 10*3/uL Normal 0.0-0.2 [facility] Comment on above: Performed By: #### L [id number] ####Material Requisitioner: VELMA VALADEZ ([id number])[facility] ([facility])[address] [place] [address] Basophils/100 WBC (Bld) 0.3 % Normal 0.0-2.0 [facility] Comment on above: Performed By: #### L [id number] ####Material Requisitioner: VELMA VALADEZ ([id number])[facility])[address] [place] [address] Eosinophils (Bld) [#/Vol] 0.1 10*3/uL Normal 0.0-0.5 [facility] Comment on above: Performed By: #### L [id number] ####Material Requisitioner: VELMA VALADEZ ([id number])[facility])[address] [place] [address] Eosinophils/100 WBC (Bld) 1.5 % Normal 0.0-6.0 [facility] Comment on above: Performed By: #### L [id number] ####Material Requisitioner: VELMA VALADEZ ([id number])[facility])[address] [place] [address] Erythrocyte distribution width (RBC) [Ratio] 19.2 % High 11.5-15.0 [facility] Comment on above: Performed By: #### L [id number] ####Material Requisitioner: VELMA VALADEZ ([id number])[facility])[address] [place] [address] Hematocrit (Bld) [Volume fraction] 31.9 % Low 35.0-47.0 [facility] Comment on above: Performed By: #### L [id number] ####Material Requisitioner: VELMA VALADEZ ([id number])[facility])[address] [place] [address] Hemoglobin (Bld) [Mass/Vol] 9.9 g/dL Low 11.7-16.0 [facility] Comment on above: Performed By: #### L [id number] ####Material Requisitioner: VELMA VALADEZ ([id number])[facility])[address] [place] [address] IMMATURE GRANS % 0.5 % Normal 0.0-2.0 [facility] Comment on above: Performed By: #### L [id number] ####Material Requisitioner: VELMA VALADEZ ([id number])[facility])[address] [place] [address] IMMATURE GRANS ABSOLUTE 0.0 10*3/uL Normal <0.1 [facility] Comment on above: Performed By: #### L [id number] ####Material Requisitioner: VELMA VALADEZ ([id number])[facility])[address] [place] [address] Lymphocytes (Bld) [#/Vol] 1.1 10*3/uL Normal 1.0-4.3 [facility] Comment on above: Performed By: #### L [id number] ####Material Requisitioner: VELMA VALADEZ ([id number])[facility])[address] [place] [address] Lymphocytes/100 WBC (Bld) 16.6 % Normal 15.0-45.0 [facility] Comment on above: Performed By: #### L [id number] ####Material Requisitioner: VELMA VALADEZ ([id number])[facility])[address] [place] [address] MCH (RBC) [Entitic mass] 26.2 pg Normal 26.0-34.0 [facility] Comment on above: Performed By: #### L [id number] ####Material Requisitioner: VELMA [id number])[facility] ([facility])[address] [place] [address] MCHC 31.0 % Normal 30.5-36.0 [facility] Comment on above: Performed By: #### L [id number] ####Material Requisitioner: VELMA VALADEZ ([id number])[facility] ([facility])[address] [place] [address] MCV (RBC) [Entitic vol] 84.4 fL Normal 77.0-99.0 [facility] Comment on above: Performed By: #### L [id number] ####Material Requisitioner: VELMA VALADEZ ([id number])[facility] ([facility])[address] [place] [address] Monocytes (Bld) [#/Vol] 0.6 10*3/uL Normal 0.0-0.9 [facility] Comment on above: Performed By: #### L [id number] ####Material Requisitioner: VELMA VALADEZ ([id number])[facility] ([facility])[address] [place] [address] Monocytes/100 WBC (Bld) 9.1 % Normal 5.0-13.0 [facility] Comment on above: Performed By: #### L [id number] ####Material Requisitioner: VELMA VALADEZ ([id number])[facility] ([facility])[address] [place] [address] NEUTROPHILS ABSOLUTE 4.7 10*3/uL Normal 1.8-7.5 [facility] Comment on above: Performed By: #### L [id number] ####Material Requisitioner: VELMA VALADEZ ([id number])[facility] ([facility])[address] [place] [address] Neutrophils/100 WBC (Bld) 72.0 % Normal 38.0-82.0 [facility] Comment on above: Performed By: #### L [id number] ####Material Requisitioner: VELMA VALADEZ ([id number])[facility] ([facility])[address] [place] [address] NRBC 0.0 /100 WBCs Normal 0.0-2.0 [facility] Comment on above: Performed By: #### L [id number] ####Material Requisitioner: VELMA VALADEZ ([id number])[facility])[address] [place] [address] Platelet mean volume (Bld) [Entitic vol] 10.0 fL Normal 9.0-12.7 [facility] Comment on above: Performed By: #### L [id number] ####Material Requisitioner: VELMA VALADEZ ([id number])[facility] ([facility])[address] [place] [address] Platelets (Bld) [#/Vol] 242 10*3/uL Normal 140-440 [facility] Comment on above: Performed By: #### L [id number] ####Material Requisitioner: VELMA VALADEZ ([id number])[facility])[address] [place] [address] RBC (Bld) [#/Vol] 3.78 10*6/uL Low 3.80-5.20 [facility] Comment on above: Performed By: #### L [id number] ####Material Requisitioner: VELMA VALADEZ ([id number])[facility])[address] [place] [address] WBC (Bld) [#/Vol] 6.5 10*3/uL Normal 3.6-10.7 [facility] Comment on above: Performed By: #### L [id number] ####Material Requisitioner: VELMA VALADEZ ([id number])[facility] ([facility])[address] [place] [address] COMPREHENSIVE METABOLIC PANE Gilberto 08-05-2024 Albumin [Mass/Vol] 2.4 g/dL Low 3.4-4.8 [facility] Comment on above: Performed By: #### L [id number] ####Material Requisitioner: VELMA VALADEZ ([id number])[facility])[address] [place] [address] ALP [Catalytic activity/Vol] 72 U/L Normal 40-150 [facility] Comment on above: Performed By: #### L [id number] ####Material Requisitioner: VELMA VALADEZ ([id number])[facility])[address] [place] [address] ALT [Catalytic activity/Vol] 24 U/L Normal <30 [facility] Comment on above: Performed By: #### L [id number] ####Material Requisitioner: VELMA VALADEZ ([id number])[facility])[address] [place] [address] Anion gap [Moles/Vol] 7 mmol/L Normal 3-13 [facility] Comment on above: Performed By: #### L [id number] ####Material Requisitioner: VELMA VALADEZ ([id number])[facility])[address] [place] [address] AST [Catalytic activity/Vol] 21 U/L Normal <34 [facility] Comment on above: Performed By: #### L [id number] ####Material Requisitioner: VELMA VALADEZ ([id number])[facility] ([facility])[address] [place] [address] Bilirubin [Mass/Vol] 0.9 mg/dL Normal <1.2 [facility] Comment on above: Performed By: #### L [id number] ####Material Requisitioner: VELMA VALADEZ ([id number])[facility] ([facility])[address] [place] [address] Calcium [Mass/Vol] 8.4 mg/dL Low 8.8-10.0 [facility] Comment on above: Performed By: #### L [id number] ####Material Requisitioner: VELMA VALADEZ ([id number])[facility] ([facility])[address] [place] [address] [place] Chloride [Moles/Vol] 115 mmol/L High 98-107 [facility] Comment on above: Performed By: #### L [id number] ####Material Requisitioner: VELMA VALADEZ ([id number])[facility] ([facility])[address] [place] [address] [place] CO2 [Moles/Vol] 17 mmol/L Low 23-31 [facility] Comment on above: Performed By: #### L [id number] ####Material Requisitioner: VELMA VALADEZ ([id number])[facility])[address] [place] [address] Creatinine [Mass/Vol] 0.91 mg/dL Normal 0.57-1.11 [facility] Comment on above: Performed By: #### L [id number] ####Material Requisitioner: VELMA VALADEZ ([id number])[facility])[address] [place] [address] [place] GLOMERULAR FILTRATION RATE ML/MIN/1.73 SQ M.PREDICTED 62.3 mL/min/1.73m*2 Normal >60.0 [facility] Comment on above: Result Comment: Calc ulation based on the Chronic Kidney Disease Epidemiology Collaboration (CKD-EPI) equation refit without adjustment for race Performed By: #### L [id number] ####Material Requisitioner: VELMA VALADEZ ([id number])[facility] ([facility])[address] [place] [address] [place] Glucose [Mass/Vol] 92 mg/dL Normal 82-115 [facility] Comment on above: Performed By: #### L [id number] ####Material Requisitioner: VELMA VALADEZ ([id number])[facility])[address] [place] [address] [place] Potassium [Moles/Vol] 3.8 mmol/L Normal 3.5-5.1 [facility] Comment on above: Result Comment: [facility] potassium values may be up to 0.5 mmol/L lower than serum values. Performed By: #### L [id number] ####Material Requisitioner: VELMA VALADEZ ([id number])[facility] ([facility])[address] [place] [address] [place] Protein [Mass/Vol] 5.5 g/dL Low 6.4-8.3 [facility] Comment on above: Performed By: #### L [id number] ####Material Requisitioner: VELMA VALADEZ ([id number])[facility])[address] [place] [address] Sodium [Moles/Vol] 139 mmol/L Normal 136-145 [facility] Comment on above: Performed By: #### L [id number] ####Material Requisitioner: VELMA VALADEZ ([id number])[facility])[address] [place] [address] Urea nitrogen [Mass/Vol] 9 mg/dL Normal 9-23 [facility] Comment on above: Performed By: #### L [id number] ####Material Requisitioner: VELMA VALADEZ ([id number])[facility] ([facility])[address] [place] [address] Albumin [Mass/Vol] 2.3 g/dL Low 3.4-4.8 [facility] Comment on above: Performed By: #### L [id number] ####Material Requisitioner: VELMA VALADEZ ([id number])[facility] ([facility])[address] [place] [address] ALP [Catalytic activity/Vol] 74 U/L Normal 40-150 [facility] Comment on above: Performed By: #### L [id number] ####Material Requisitioner: VELMA VALADEZ ([id number])[facility])[address] [place] [address] ALT [Catalytic activity/Vol] 27 U/L Normal <30 [facility] Comment on above: Performed By: #### L AB17 ####Material Requisitioner: VELMA VALADEZ ([id number])[facility])[address] [place] [address] Anion gap [Moles/Vol] 5 mmol/L Normal 3-13 [facility] Comment on above: Performed By: #### L AB17 ####Material Requisitioner: VELMA VALADEZ ([id number])[facility])[address] [place] [address] AST [Catalytic activity/Vol] 24 U/L Normal <34 [facility] Comment on above: Performed By: #### L AB17 ####Material Requisitioner: VELMA [id number])[facility] [place] [address] Bilirubin [Mass/Vol] 0.6 mg/dL Normal <1.2 [facility] Comment on above: Performed By: #### L AB17 ####Material Requisitioner: VELMA VALADEZ ([id number])[facility] [place] [address] Calcium [Mass/Vol] 8.1 mg/dL Low 8.8-10.0 [facility] Comment on above: Performed By: #### L AB17 ####Material Requisitioner: VELMA VALADEZ ([id number])[facility] [place] [address] Chloride [Moles/Vol] 108 mmol/L High 98-107 [facility] Comment on above: Performed By: #### L AB17 ####Material Requisitioner: VELMA VALADEZ ([id number])[facility] [place] [address] CO2 [Moles/Vol] 21 mmol/L Low 23-31 [facility] Comment on above: Performed By: #### L AB17 ####Material Requisitioner: VELMA VALADEZ ([id number])[facility] [place] [address] Creatinine [Mass/Vol] 0.89 mg/dL Normal 0.57-1.11 [facility] Comment on above: Performed By: #### L AB17 ####Material Requisitioner: VELMA VALADEZ ([id number])[facility] ([facility])[address] [place] [address] GLOMERULAR FILTRATION RATE ML/MIN/1.73 SQ M.PREDICTED 64.0 mL/min/1.73m*2 Normal >60.0 [facility] Comment on above: Result Comment: Calc ulation based on the Chronic Kidney Disease Epidemiology Collaboration (CKD-EPI) equation refit without adjustment for race Performed By: #### L AB17 ####Material Requisitioner: VELMA VALADEZ ([id number])[facility] ([facility])[address] [place] [address] Glucose [Mass/Vol] 85 mg/dL Normal 82-115 [facility] Comment on above: Performed By: #### L AB17 ####Material Requisitioner: VELMA VALADEZ ([id number])[facility])[address] [place] [address] Potassium [Moles/Vol] 3.8 mmol/L Normal 3.5-5.1 [facility] Comment on above: Result Comment: [facility] potassium values may be up to 0.5 mmol/L lower than serum values. Performed By: #### L AB17 ####Material Requisitioner: VELMA VALADEZ ([id number])[facility])[address] [place] [address] Protein [Mass/Vol] 5.2 g/dL Low 6.4-8.3 [facility] Comment on above: Performed By: #### L AB17 ####Material Requisitioner: VELMA VALADEZ ([id number])[facility] ([facility])[address] [place] [address] Sodium [Moles/Vol] 134 mmol/L Low 136-145 [facility] Comment on above: Performed By: #### L AB17 ####Material Requisitioner: VELMA VALADEZ ([id number])[facility])[address] [place] [address] Urea nitrogen [Mass/Vol] 13 mg/dL Normal 9-23 [facility] Comment on above: Performed By: #### L AB17 ####Material Requisitioner: VELMA VALADEZ ([id number])[facility])[address] [place] [address] Comprehensive metabolic 1998 panelon 08-05-2024 Albumin [Mass/Vol] 2.3 g/dL Low 3.4 - 4.8 g/dL [facility] ALP [Catalytic activity/Vol] 74 U/L 40 - 150 U/L [facility] ALT [Catalytic activity/Vol] 27 U/L NINF - 30 U/L [facility] Anion gap [Moles/Vol] 5 mmol/L 3 - 13 mmol/L [facility] AST [Catalytic activity/Vol] 24 U/L NINF - 34 U/L [facility] Bilirubin [Mass/Vol] 0.6 mg/dL NINF - 1.2 mg/dL [facility] Calcium [Mass/Vol] 8.1 mg/dL Low 8.8 - 10. 0 mg/dL [facility] Chloride [Moles/Vol] 108 mmol/L High 98 - 10 7 mmol/L [facility] CO2 [Moles/Vol] 21 mmol/L Low 23 - 31 mmol/L [facility] Creatinine [Mass/Vol] 0.89 mg/dL 0.57 - 1.11 mg/dL [facility] GFR/1.73 sq M.predicted (S/P/Bld) [Vol rate/Area] 64 mL/min - PINF [facility] Comment on above: Calculation based on the Chronic Kidney Disease Epidemiology Collaboration (CKD-EPI) equation refit without adjustment for race Glucose [Mass/Vol] 85 mg/dL 82 - 115 mg/dL [facility] Interpretation and review of laboratory results Abnormal [facility] Potassium [Moles/Vol] 3.8 mmol/L 3.5 - 5.1 mmol/L [facility] Comment on above: Plasma potassium chris ues may be up to 0.5 mmol/L lower than serum values. Protein [Mass/Vol] 5.2 g/dL Low 6.4 - 8.3 g/dL [facility] Sodium [Moles/Vol] 134 mmol/L Low 136 - 145 mmol/L [facility] Urea nitrogen [Mass/Vol] 13 mg/dL 9 - 23 mg/dL [facility] Progress Noteon 08-05-2024 Progress Note Normal [facility] Progress Note Normal [facility] 30on 08-04-2024 30 Normal [facility] 30 Normal [facility] CBC W Auto Differential pane l (Bld)Ordered By: Devika Eisenberg on 08-04-2024 Basophils (Bld) [#/Vol] 0 10*3/uL 0.0 - 0.2 10*3/uL [facility] Basophils/100 WBC (Bld) 0.2 % 0.0 - 2.0 % [facility] Eosinophils (Bld) [#/Vol] 0.1 10*3/uL 0.0 - 0.5 10*3/uL [facility] Eosinophils/100 WBC (Bld) 1.4 % 0.0 - 6.0 % [facility] Erythrocyte distribution width (RBC) [Ratio] 19.3 % High 11.5 - 15.0 % [facility] Hematocrit (Bld) [Volume fraction] 33 % Low 35.0 - 47.0 % [facility] Hemoglobin (Bld) [Mass/Vol] 10 g/dL Low 11.7 - 16.0 g/dL [facility] Immature granulocytes (Bld) [#/Vol] 0 10*3/uL NINF - 0.1 10*3/uL [facility] Immature granulocytes/100 WBC (Bld) 0.5 % 0.0 - 2.0 % [facility] Interpretation and review of laboratory results Abnormal [facility] Lymphocytes (Bld) [#/Vol] 1 10*3/uL 1.0 - 4.3 10*3/uL [facility] Lymphocytes/100 WBC (Bld) 17.7 % 15.0 - 45.0 % [facility] MCH (RBC) [Entitic mass] 25.8 pg Low 26.0 - 34.0 pg [facility] MCHC (RBC) [Mass/Vol] 30.3 % Low 30.5 - 36.0 % [facility] MCV (RBC) [Entitic vol] 85.1 fL 77.0 - 99.0 fL [facility] Monocytes (Bld) [#/Vol] 0.5 10*3/uL 0.0 - 0.9 10*3/uL [facility] Monocytes/100 WBC (Bld) 9.5 % 5.0 - 13.0 % [facility] Neutrophils (Bld) [#/Vol] 3.9 10*3/uL 1.8 - 7.5 10*3/uL [facility] Neutrophils/100 WBC (Bld) 70.7 % 38.0 - 82.0 % [facility] Nucleated RBC/100 WBC (Bld) [Ratio] 0 % [facility] Platelet mean volume (Bld) [Entitic vol] 9.8 fL 9.0 - 12.7 fL [facility] Platelets (Bld) [#/Vol] 280 10*3/uL 140 - 440 10*3/uL [facility] RBC (Bld) [#/Vol] 3.88 10*6/uL 3.80 - 5.2 0 10*6/uL [facility] WBC (Bld) [#/Vol] 5.6 10*3/uL 3.6 - 10.7 10*3/uL [facility] CBC WITH AUTO DIFFERENTIALon 08-04-2024 Basophils (Bld) [#/Vol] 0.0 10*3/uL Normal 0.0-0.2 [facility] Comment on above: Performed By: #### L [id number] ####Material Requisitioner: VELMA VALADEZ ([id number])[facility] ([facility])[address] [place] [address] Basophils/100 WBC (Bld) 0.2 % Normal 0.0-2.0 S [facility] Comment on above: Performed By: #### L [id number] ####Material Requisitioner: VELMA VALADEZ ([id number])[facility])[address] [place] [address] Eosinophils (Bld) [#/Vol] 0.1 10*3/uL Normal 0.0-0.5 [facility] Comment on above: Performed By: #### L [id number] ####Material Requisitioner: VELMA VALADEZ ([id number])[facility])[address] [place] [address] Eosinophils/100 WBC (Bld) 1.4 % Normal 0.0-6.0 [facility] Comment on above: Performed By: #### L [id number] ####Material Requisitioner: VELMA VALADEZ ([id number])[facility])[address] [place] [address] Erythrocyte distribution width (RBC) [Ratio] 19.3 % High 11.5-15.0 [facility] Comment on above: Performed By: #### L [id number] ####Material Requisitioner: VELMA VALADEZ ([id number])[facility])[address] [place] [address] Hematocrit (Bld) [Volume fraction] 33.0 % Low 35.0-47.0 [facility] Comment on above: Performed By: #### L [id number] ####Material Requisitioner: VELMA VALADEZ ([id number])[facility])[address] [place] [address] Hemoglobin (Bld) [Mass/Vol] 10.0 g/dL Low 11.7-16.0 [facility] Comment on above: Performed By: #### L [id number] ####Material Requisitioner: VELMA VALADEZ ([id number])[facility])[address] [place] [address] IMMATURE GRANS % 0.5 % Normal 0.0-2.0 [facility] Comment on above: Performed By: #### L [id number] ####Material Requisitioner: VELMA VALADEZ ([id number])[facility])[address] [place] [address] IMMATURE GRANS ABSOLUTE 0.0 10*3/uL Normal <0.1 [facility] Comment on above: Performed By: #### L [id number] ####Material Requisitioner: VELMA VALADEZ ([id number])[facility])[address] [place] [address] Lymphocytes (Bld) [#/Vol] 1.0 10*3/uL Normal 1.0-4.3 [facility] Comment on above: Performed By: #### L [id number] ####Material Requisitioner: VELMA VALADEZ ([id number])[facility])[address] [place] [address] Lymphocytes/100 WBC (Bld) 17.7 % Normal 15.0-45.0 [facility] Comment on above: Performed By: #### L [id number] ####Material Requisitioner: VELMA VALADEZ ([id number])[facility])[address] [place] [address] MCH (RBC) [Entitic mass] 25.8 pg Low 26.0-34.0 [facility] Comment on above: Performed By: #### L [id number] ####Material Requisitioner: VELMA [id number])[facility] ([facility])[address] [place] [address] MCHC 30.3 % Low 30.5-36.0 [facility] Comment on above: Performed By: #### L [id number] ####Material Requisitioner: VELMA VALADEZ ([id number])[facility] ([facility])[address] [place] [address] MCV (RBC) [Entitic vol] 85.1 fL Normal 77.0-99.0 [facility] Comment on above: Performed By: #### L [id number] ####Material Requisitioner: VELMA VALADEZ ([id number])[facility] ([facility])[address] [place] [address] Monocytes (Bld) [#/Vol] 0.5 10*3/uL Normal 0.0-0.9 [facility] Comment on above: Performed By: #### L [id number] ####Material Requisitioner: VELMA VALADEZ ([id number])[facility] ([facility])[address] [place] [address] Monocytes/100 WBC (Bld) 9.5 % Normal 5.0-13.0 S [facility] Comment on above: Performed By: #### L [id number] ####Material Requisitioner: VELMA VALADEZ ([id number])[facility] ([facility])[address] [place] [address] NEUTROPHILS ABSOLUTE 3.9 10*3/uL Normal 1.8-7.5 [facility] Comment on above: Performed By: #### L [id number] ####Material Requisitioner: VELMA VALADEZ ([id number])[facility] ([facility])[address] [place] [address] Neutrophils/100 WBC (Bld) 70.7 % Normal 38.0-82.0 [facility] Comment on above: Performed By: #### L [id number] ####Material Requisitioner: VELMA VALADEZ ([id number])[facility] ([facility])[address] [place] [address] NRBC 0.0 /100 WBCs Normal 0.0-2.0 [facility] Comment on above: Performed By: #### L [id number] ####Material Requisitioner: VELMA VALADEZ ([id number])[facility])[address] [place] [address] Platelet mean volume (Bld) [Entitic vol] 9.8 fL Normal 9.0-12.7 [facility] Comment on above: Performed By: #### L [id number] ####Material Requisitioner: VELMA VALADEZ ([id number])[facility] ([facility])[address] [place] [address] Platelets (Bld) [#/Vol] 280 10*3/uL Normal 140-440 [facility] Comment on above: Performed By: #### L [id number] ####Material Requisitioner: VELMA VALADEZ ([id number])[facility])[address] [place] [address] RBC (Bld) [#/Vol] 3.88 10*6/uL Normal 3.80-5.20 [facility] Comment on above: Performed By: #### L [id number] ####Material Requisitioner: VELMA VALADEZ ([id number])[facility])[address] [place] [address] WBC (Bld) [#/Vol] 5.6 10*3/uL Normal 3.6-10.7 [facility] Comment on above: Performed By: #### L [id number] ####Material Requisitioner: EVLMA VALADEZ ([id number])[facility] ([facility])[address] [place] [address] COMPREHENSIVE METABOLIC PANE Gilberto 08-04-2024 Albumin [Mass/Vol] 2.3 g/dL Low 3.4-4.8 [facility] Comment on above: Performed By: #### L [id number] ####Material Requisitioner: VELMA VALADEZ ([id number])[facility])[address] [place] [address] ALP [Catalytic activity/Vol] 68 U/L Normal 40-150 [facility] Comment on above: Performed By: #### L AB17 ####Material Requisitioner: VELMA VALADEZ ([id number])[facility] ([facility])[address] [place] [address] ALT [Catalytic activity/Vol] 26 U/L Normal <30 [facility] Comment on above: Performed By: #### L AB17 ####Material Requisitioner: VELMA VALADEZ ([id number])[facility] ([facility])[address] [place] [address] Anion gap [Moles/Vol] 6 mmol/L Normal 3-13 [facility] Comment on above: Performed By: #### L AB17 ####Material Requisitioner: VELMA VALADEZ ([id number])[facility])[address] [place] [address] AST [Catalytic activity/Vol] 25 U/L Normal <34 [facility] Comment on above: Performed By: #### L AB17 ####Material Requisitioner: VELMA VALADEZ ([id number])[facility] ([facility])[address] [place] [address] Bilirubin [Mass/Vol] 0.5 mg/dL Normal <1.2 [facility] Comment on above: Performed By: #### L AB17 ####Material Requisitioner: VELMA VALADEZ ([id number])[facility] ([facility])[address] [place] [address] Calcium [Mass/Vol] 8.2 mg/dL Low 8.8-10.0 [facility] Comment on above: Performed By: #### L AB17 ####Material Requisitioner: VELMA VALADEZ ([id number])[facility] ([facility])[address] [place] [address] [place] Chloride [Moles/Vol] 112 mmol/L High 98-107 [facility] Comment on above: Performed By: #### L AB17 ####Material Requisitioner: VELMA VALADEZ ([id number])[facility] ([facility])[address] [place] [address] [place] CO2 [Moles/Vol] 21 mmol/L Low 23-31 [facility] Comment on above: Performed By: #### L AB17 ####Material Requisitioner: VELMA VALADEZ ([id number])[facility])[address] [place] [address] Creatinine [Mass/Vol] 1.13 mg/dL High 0.57-1.11 [facility] Comment on above: Performed By: #### L AB17 ####Material Requisitioner: VELMA VALADEZ ([id number])[facility])[address] [place] [address] GLOMERULAR FILTRATION RATE ML/MIN/1.73 SQ M.PREDICTED 48.1 mL/min/1.73m*2 Low >60.0 [facility] Comment on above: Result Comment: Calc ulation based on the Chronic Kidney Disease Epidemiology Collaboration (CKD-EPI) equation refit without adjustment for race Performed By: #### L AB17 ####Material Requisitioner: VELMA VALADEZ ([id number])[facility] ([facility])[address] [place] [address] Glucose [Mass/Vol] 153 mg/dL High 82-115 [facility] Comment on above: Performed By: #### L AB17 ####Material Requisitioner: VELMA VALADEZ ([id number])[facility])[address] [place] [address] Potassium [Moles/Vol] 3.9 mmol/L Normal 3.5-5.1 [facility] Comment on above: Result Comment: [facility] potassium values may be up to 0.5 mmol/L lower than serum values. Performed By: #### L AB17 ####Material Requisitioner: VELMA VALADEZ ([id number])[facility] ([facility])[address] [place] [address] Protein [Mass/Vol] 5.2 g/dL Low 6.4-8.3 [facility] Comment on above: Performed By: #### L AB17 ####Material Requisitioner: VELMA VALADEZ ([id number])[facility] ([facility])[address] [place] [address] Sodium [Moles/Vol] 139 mmol/L Normal 136-145 [facility] Comment on above: Performed By: #### L AB17 ####Material Requisitioner: VELMA VALADEZ ([id number])[facility])[address] [place] [address] Urea nitrogen [Mass/Vol] 26 mg/dL High 9-23 [facility] Comment on above: Performed By: #### L AB17 ####Material Requisitioner: VELMA VALADEZ ([id number])[facility] ([facility])[address] [place] [address] Comprehensive metabolic 1998 panelon 08-04-2024 Albumin [Mass/Vol] 2.3 g/dL Low 3.4 - 4.8 g/dL [facility] ALP [Catalytic activity/Vol] 68 U/L 40 - 150 U/L [facility] ALT [Catalytic activity/Vol] 26 U/L NINF - 30 U/L [facility] Anion gap [Moles/Vol] 6 mmol/L 3 - 13 mmol/L [facility] AST [Catalytic activity/Vol] 25 U/L NINF - 34 U/L [facility] Bilirubin [Mass/Vol] 0.5 mg/dL NINF - 1.2 mg/dL [facility] Calcium [Mass/Vol] 8.2 mg/dL Low 8.8 - 10. 0 mg/dL [facility] Chloride [Moles/Vol] 112 mmol/L High 98 - 10 7 mmol/L [facility] CO2 [Moles/Vol] 21 mmol/L Low 23 - 31 mmol/L [facility] Creatinine [Mass/Vol] 1.13 mg/dL High 0.57 - 1.11 mg/dL [facility] GFR/1.73 sq M.predicted (S/P/Bld) [Vol rate/Area] 48.1 mL/min Low - PINF [facility] Comment on above: Calculation based on the Chronic Kidney Disease Epidemiology Collaboration (CKD-EPI) equation refit without adjustment for race Glucose [Mass/Vol] 153 mg/dL High 82 - 115 mg/dL [facility] Interpretation and review of laboratory results Abnormal [facility] Potassium [Moles/Vol] 3.9 mmol/L 3.5 - 5.1 mmol/L [facility] Comment on above: Plasma potassium chris ues may be up to 0.5 mmol/L lower than serum values. Protein [Mass/Vol] 5.2 g/dL Low 6.4 - 8.3 g/dL [facility] Sodium [Moles/Vol] 139 mmol/L 136 - 145 mmol/L [facility] Urea nitrogen [Mass/Vol] 26 mg/dL High 9 - 23 mg/dL [facility] Nursing Noteon 08-04-2024 Nursing Note Bedside swallow completed. Pt passed and tolerated well tolerated well. Normal [facility] Progress Noteon 08-04-2024 Progress Note Normal [facility] 30on 08-03-2024 30 Normal [facility] 30 Normal [facility] 30 Normal [facility] [id number] 08-03-2024 [id number] Normal [facility] BASIC METABOLIC PANELon 07-18 Anion gap [Moles/Vol] 6 mmol/L Normal 3-13 [facility] Comment on above: Performed By: #### L AB15 ####Material Requisitioner: VELMA VALADEZ ([id number])[facility] ([facility])[address] [place] [address] Calcium [Mass/Vol] 8.5 mg/dL Low 8.8-10.0 [facility] Comment on above: Performed By: #### L AB15 ####Material Requisitioner: VELMA VALADEZ ([id number])[facility] ([facility])[address] [place] [address] [place] Chloride [Moles/Vol] 105 mmol/L Normal 98-107 [facility] Comment on above: Performed By: #### L AB15 ####Material Requisitioner: VELMA VALADEZ ([id number])[facility] ([facility])[address] [place] [address] [place] CO2 [Moles/Vol] 27 mmol/L Normal 23-31 [facility] Comment on above: Performed By: #### L AB15 ####Material Requisitioner: VELMA VALADEZ ([id number])[facility] ([address] Creatinine [Mass/Vol] 1.18 mg/dL High 0.57-1.11 [facility] Comment on above: Performed By: #### L AB15 ####Material Requisitioner: VELMA VALADEZ ([id number])[facility])[address] [place] [address] GLOMERULAR FILTRATION RATE ML/MIN/1.73 SQ M.PREDICTED 45.6 mL/min/1.73m*2 Low >60.0 [facility] Comment on above: Result Comment: Calc ulation based on the Chronic Kidney Disease Epidemiology Collaboration (CKD-EPI) equation refit without adjustment for race Performed By: #### L AB15 ####Material Requisitioner: VELMA VALADEZ ([id number])[address] Glucose [Mass/Vol] 100 mg/dL Normal 82-115 [facility] Comment on above: Performed By: #### L AB15 ####Material Requisitioner: VELMA VALADEZ ([id number])[address] Potassium [Moles/Vol] 4.7 mmol/L Normal 3.5-5.1 [facility] Comment on above: Result Comment: [facility] potassium values may be up to 0.5 mmol/L lower than serum values. Performed By: #### L AB15 ####Material Requisitioner: VELMA VALADEZ ([id number])[facility])[address] [place] [address] Sodium [Moles/Vol] 138 mmol/L Normal 136-145 [facility] Comment on above: Performed By: #### L AB15 ####Material Requisitioner: VELMA [id number])[address] Urea nitrogen [Mass/Vol] 33 mg/dL High 9-23 [facility] Comment on above: Performed By: #### L AB15 ####Material Requisitioner: VELMA [id number])[facility] [place] [address] Basic metabolic 1998 panelOr dered By: Juni Millard on 08-03-2024 Anion gap [Moles/Vol] 6 mmol/L 3 - 13 mmol/L [facility] Calcium [Mass/Vol] 8.5 mg/dL Low 8.8 - 10. 0 mg/dL [facility] Chloride [Moles/Vol] 105 mmol/L 98 - 10 7 mmol/L [facility] CO2 [Moles/Vol] 27 mmol/L 23 - 31 mmol/L [facility] Creatinine [Mass/Vol] 1.18 mg/dL High 0.57 - 1.11 mg/dL [facility] GFR/1.73 sq M.predicted (S/P/Bld) [Vol rate/Area] 45.6 mL/min Low - PINF [facility] Comment on above: Calculation based on the Chronic Kidney Disease Epidemiology Collaboration (CKD-EPI) equation refit without adjustment for race Glucose [Mass/Vol] 100 mg/dL 82 - 115 mg/dL [facility] Interpretation and review of laboratory results Abnormal [facility] Potassium [Moles/Vol] 4.7 mmol/L 3.5 - 5.1 mmol/L [facility] Comment on above: Plasma potassium chris ues may be up to 0.5 mmol/L lower than serum values. Sodium [Moles/Vol] 138 mmol/L 136 - 145 mmol/L [facility] Urea nitrogen [Mass/Vol] 33 mg/dL High 9 - 23 mg/dL [facility] CBC W Auto Differential pane l (Bld)Ordered By: Christin Mayes on 08-03-2024 Erythrocyte distribution width (RBC) [Ratio] 19.4 % High 11.5 - 15.0 % [facility] Hematocrit (Bld) [Volume fraction] 38.7 % 35.0 - 47.0 % [facility] Hemoglobin (Bld) [Mass/Vol] 12.1 g/dL 11.7 - 16.0 g/dL [facility] MCH (RBC) [Entitic mass] 26 pg 26.0 - 34.0 pg [facility] MCHC (RBC) [Mass/Vol] 31.3 % 30.5 - 36.0 % [facility] MCV (RBC) [Entitic vol] 83.2 fL 77.0 - 99.0 fL [facility] Nucleated RBC/100 WBC (Bld) [Ratio] 0 % [facility] Platelet mean volume (Bld) [Entitic vol] 9.8 fL 9.0 - 12.7 fL [facility] Comment on above: MPV is a calculated measurement using platelet volume ratio Platelets (Bld) [#/Vol] 303 10*3/uL 140 - 440 10*3/uL [facility] RBC (Bld) [#/Vol] 4.65 10*6/uL 3.80 - 5.2 0 10*6/uL [facility] WBC (Bld) [#/Vol] 9.1 10*3/uL 3.6 - 10.7 10*3/uL [facility] CBC WITH AUTO DIFFERENTIALon 08-03-2024 Erythrocyte distribution width (RBC) [Ratio] 19.4 % High 11.5-15.0 [facility] Comment on above: Performed By: #### Weston [id number], [id number] ####Material Requisitioner: VELMA VALADEZ ([id number])[facility] ROSANGELA [employer] ([facility])[address] [place] [address] Hematocrit (Bld) [Volume fraction] 38.7 % Normal 35.0-47.0 [facility] Comment on above: Performed By: #### Weston [id number], [id number] ####Material Requisitioner: VELMA VALADEZ ([id number])[facility] ROSANGELA [employer] ([facility])[address] [place] [address] Hemoglobin (Bld) [Mass/Vol] 12.1 g/dL Normal 11.7-16.0 [facility] Comment on above: Performed By: #### L [id number], [id number] ####Material Requisitioner: VELMA VALADEZ ([id number])[facility] ROSANGELA [employer] ([facility])[address] [place] [address] MCH (RBC) [Entitic mass] 26.0 pg Normal 26.0-34.0 [facility] Comment on above: Performed By: #### L [id number], [id number] ####Material Requisitioner: VELMA VALADEZ ([id number])[facility] ADAMES [facility]TM[facility] (SWRL[facility])[address] MCHC 31.3 % Normal 30.5-36.0 [facility] Comment on above: Performed By: #### L [id number], [id number] ####Material Requisitioner: VELMA VALADEZ ([id number])[facility] [employer] [employer] ([facility])[address] [place] [address] MCV (RBC) [Entitic vol] 83.2 fL Normal 77.0-99.0 [facility] Comment on above: Performed By: #### L [id number], [id number] ####Material Requisitioner: VELMA VALADEZ ([id number])[facility] [employer] ([facility])[address] [place] [address] NRBC 0.0 /100 WBCs Normal 0.0-2.0 [facility] Comment on above: Performed By: #### L [id number], [id number] ####Material Requisitioner: VELMA VALADEZ ([id number])[facility]ITAL[facility] ADAMES [facility] ([facility])[address] [place] [address] Platelet mean volume (Bld) [Entitic vol] 9.8 fL Normal 9.0-12.7 [facility] Comment on above: Result Comment: MPV is a calculated measurement using platelet volume ratio Performed By: #### L [id number], [id number] ####Material Requisitioner: VELMA VALADEZ ([id number])[facility]ITAL[facility] ADAMES RITTMAN (SWRL[facility])[address] [place] [address] [place] Platelets (Bld) [#/Vol] 303 10*3/uL Normal 140-440 [facility] Comment on above: Performed By: #### L [id number], [id number] ####Material Requisitioner: VELMA VALADEZ ([id number])[facility]ITAL[facility] ADAMES RITTMAN (SW[facility])[address] [place] [address] [place] RBC (Bld) [#/Vol] 4.65 10*6/uL Normal 3.80-5.20 [facility] Comment on above: Performed By: #### L [id number], [id number] ####Material Requisitioner: VLEMA VALADEZ ([id number])[facility]ITAL[facility] VERDINTMAN (SWRLAB)[address] WBC (Bld) [#/Vol] 9.1 10*3/uL Normal 3.6-10.7 [facility] Comment on above: Performed By: #### Weston BQ2837, [id number] ####Material Requisitioner: VELMA VALADEZ ([id number])[facility]ITAL[facility] VERDINTMAN (SWRLAB)[address] [place] [address] COMPREHENSIVE METABOLIC PANE Gilberto 08-03-2024 Albumin [Mass/Vol] 2.8 g/dL Low 3.4-4.8 [facility] Comment on above: Performed By: #### Weston AB17, ONP705, LAB99 ####Material Requisitioner: VELMA VALADEZ ([id number])[facility]ITAL[facility] VERDINTMAN (SWRLAB)[address] [place] [address] ALP [Catalytic activity/Vol] 82 U/L Normal 40-150 [facility] Comment on above: Performed By: #### L AB17, [id number], LAB99 ####Material Requisitioner: VELMA VALADEZ ([id number])[facility]ITAL[facility] ADAMES RITTMAN (SWRL[facility])[address] ALT [Catalytic activity/Vol] 26 U/L Normal <30 [facility] Comment on above: Performed By: #### L AB17, JKL204, LAB99 ####Material Requisitioner: VELMA VALADEZ ([id number])[facility]ITAL[facility] ADAMES RITTMAN ([facility])[address] Anion gap [Moles/Vol] 9 mmol/L Normal 3-13 [facility] Comment on above: Performed By: #### L AB17, [id number], LAB99 ####Material Requisitioner: VELMA VALADEZ ([id number])[facility]ITALA ROSANGELA [employer]ITTMAN (SWRLAB)[address] [place] [address] [place] AST [Catalytic activity/Vol] 36 U/L High <34 [facility] Comment on above: Result Comment: TCSi gnificant interference from hemolysis. Result integrity compromised. Interpret with caution. Performed By: #### Weston AB17, [id number], LAB99 ####Material Requisitioner: VELMA VALADEZ ([id number])[facility]A ROSANGELA [employer] (SWRL[facility])[address] Bilirubin [Mass/Vol] 0.7 mg/dL Normal <1.2 [facility] Comment on above: Performed By: #### Weston REIS17, [id number], LAB99 ####Material Requisitioner: VELMA VALADEZ ([id number])[facility]ITAL[facility]ran SANCHEZROSANGELA RITTMAN (SWRLAB)[address] [place] [address] [place] Calcium [Mass/Vol] 9.0 mg/dL Normal 8.8-10.0 [facility] Comment on above: Performed By: #### Weston HOLLY, [id number], LAB99 ####Material Requisitioner: VELMA VALADEZ ([id number])[facility] ROSANGELA [facility]ITTMAN (SWRL[facility])[address] [place] [address] [place] Chloride [Moles/Vol] 109 mmol/L High 98-107 [facility] Comment on above: Performed By: #### Weston REIS17, [id number], LAB99 ####Material Requisitioner: VELMA VALADEZ ([id number])[facility] ROSANGELA [employer]TMAN (SWRL[facility])[address] [place] [address] [place] CO2 [Moles/Vol] 21 mmol/L Low 23-31 [facility] Comment on above: Performed By: #### L AB17, VVK261, LAB99 ####Material Requisitioner: VELMA VALADEZ ([id number])[facility] ROSANGELA RITTMAN (SWRLAB)[address] [place] [address] [place] Creatinine [Mass/Vol] 1.30 mg/dL High 0.57-1.11 [facility] Comment on above: Performed By: #### Weston HOLLY, [id number], LAB99 ####Material Requisitioner: VELMA VALADEZ ([id number])[facility]ITAL[facility] VERDINTMAN (SWRLAB)[address] [place] [address] GLOMERULAR FILTRATION RATE ML/MIN/1.73 SQ M.PREDICTED 40.6 mL/min/1.73m*2 Low >60.0 [facility] Comment on above: Result Comment: Calc ulation based on the Chronic Kidney Disease Epidemiology Collaboration (CKD-EPI) equation refit without adjustment for race Performed By: #### Weston HOLLY, [id number], LAB99 ####Material Requisitioner: VELMA VALADEZ ([id number])[facility]ITAL[facility] VERDINTMAN (SWRLAB)[address] [place] [address] Glucose [Mass/Vol] 103 mg/dL Normal 82-115 [facility] Comment on above: Performed By: #### Weston HOLLY, [id number], LAB99 ####Material Requisitioner: VELMA VALADEZ ([id number])[facility]ITAL[facility] ADAMES RITTMAN (SWRLAB)[address] [place] [address] Potassium [Moles/Vol] 5.9 mmol/L High 3.5-5.1 [place] [facility] Comment on above: Result Comment: TCSi gnificant interference from hemolysis. Result integrity compromised. Interpret with caution. Performed By: #### Weston HOLLY, [id number], LAB99 ####Material Requisitioner: VELMA VALADEZ ([id number])[facility] HOSPITALSimran VERDINTMAN (SWRLAB)[address] [place] [address] Protein [Mass/Vol] 6.7 g/dL Normal 6.4-8.3 [facility] Comment on above: Result Comment: TCPo tential interference from hemolysis Performed By: #### Weston REIS17, [id number], LAB99 ####Material Requisitioner: VELMA VALADEZ ([id number])[facility] HOSPITALSimran ADAMES [place] (SWRLAB)[address] [place] [address] Sodium [Moles/Vol] 139 mmol/L Normal 136-145 [facility] Comment on above: Performed By: #### L AB17, [id number], LAB99 ####Material Requisitioner: VELMA VALADEZ ([id number])[facility] [place] (SWRLAB)[address] Urea nitrogen [Mass/Vol] 34 mg/dL High 9-23 [facility] Comment on above: Performed By: #### L AB17, [id number], LAB99 ####Material Requisitioner: VELMA VALADEZ ([id number])[facility] [place] (SWRLAB)[address] ABDOMEN PELVIS WO IV CONT RASTon 08-03-2024 CT ABDOMEN PELVIS WO IV CONTRAST Normal [facility] CT Abdomen and Pelvis WO con traston 08-03-2024 1. Extensive colonic diverticulosis without evidence of diverticulitis 2. Consolidation in the medial left lower lobe, possibly pneumonia 3. No bowel dilatation Report Dictated on Electronically Signed By: Ming Fry MD Electronically Signed Date/Time: 08/03/2024 4:05 AM [facility] RADIOLOGY SYSTEM Patient Name: MEL CARVER RD [facility] 1940 [id number] Exam Date/Time: 08/03/2024 03:05 Procedure: CT ABDOMEN [...] Lymph nodes: Unremarkable. No enlarged lymph nodes. [facility]Y SYSTEM Ming Fry MD - 08/03/2024 Patient Name: MEL POP [facility] 1940 [id number] Exam Date/Time: 08/03/2024 03:05 Procedure: CT ABDOMEN [...] Electronically Signed Date/Time: 08/03/2024 4:05 AM EST [facility] Radiology Study observation (narrative) [facility] alth CT Abdomen and Pelvis WO con trastOrdered By: Ming Fry on 08-03-2024 [facility] Work Phone: Comprehensive metabolic 1998 panelon 08-03-2024 Albumin [Mass/Vol] 2.8 g/dL Low 3.4 - 4.8 g/dL [facility] ALP [Catalytic activity/Vol] 82 U/L 40 - 150 U/L [facility] ALT [Catalytic activity/Vol] 26 U/L NINF - 30 U/L [facility] Anion gap [Moles/Vol] 9 mmol/L 3 - 13 mmol/L [facility] AST [Catalytic activity/Vol] 36 U/L [facility] U/L [facility] Comment on above: TC Significant interference from hemolysis. Result integrity compromised. Interpret with caution. Bilirubin [Mass/Vol] 0.7 mg/dL NINF - 1.2 mg/dL [facility] Calcium [Mass/Vol] 9 mg/dL 8.8 - 10. 0 mg/dL [facility] Chloride [Moles/Vol] 109 mmol/L High 98 - 10 7 mmol/L [facility] CO2 [Moles/Vol] 21 mmol/L Low 23 - 31 mmol/L [facility] Creatinine [Mass/Vol] 1.3 mg/dL High 0.57 - 1.11 mg/dL [facility] GFR/1.73 sq M.predicted (S/P/Bld) [Vol rate/Area] 40.6 mL/min Low - PINF [facility] Comment on above: Calculation based on the Chronic Kidney Disease Epidemiology Collaboration (CKD-EPI) equation refit without adjustment for race Glucose [Mass/Vol] 103 mg/dL 82 - 115 mg/dL [facility] Interpretation and review of laboratory results Abnormal [facility] Potassium [Moles/Vol] 5.9 mmol/L High 3.5 - 5.1 mmol/L [facility] Comment on above: TC Significant interference from hemolysis. Result integrity compromised. Interpret with caution. Protein [Mass/Vol] 6.7 g/dL 6.4 - 8.3 g/dL [facility] Comment on above: TC Potential interference from hemolysis Sodium [Moles/Vol] 139 mmol/L 136 - 145 mmol/L [facility] Urea nitrogen [Mass/Vol] 34 mg/dL High 9 - 23 mg/dL [facility] ED Nursing Noteon 08-03-2024 ED Nursing Note Pt placed in roundtrip Normal [facility] ED Nursing Note ED CT and ED xray notified that patient is ready Normal [facility] ED Provider Noteon ED Provider Note Normal [facility] GASTROINTESTINAL PCR PANELon 08-03-2024 GASTROINTESTINAL PCR PANEL Normal [facility] Comment on above: Performed By: #### L [id number] ####Material Requisitioner: VELMA VALADEZ ([id number])[facility] (SACLAB)[address] [place] [address] Gastrointestinal pathogens p masoud OXANA+probe (Stl)Ordered By: Maximus Dimas on 08-03-2024 Adenovirus F 40/41 Not detected Not Detected [facility] Astrovirus Not detected Not Detected [facility] Campylobacter Not detected Not Detected [facility] Cryptosporidium Not detected Not Detected [facility] Cyclospora cayetanensis Not detected Not Detected [facility] Entamoeba histolytica Not detected Not Detected [facility] Enterotoxigenic E coli (ETEC) Not detected Not Detected [facility] Giardia lamblia Not detected Not Detected [facility] Interpretation and review of laboratory results Abnormal [facility] Norovirus GI/GII Detected Abnormal Not Detected [facility] Plesiomonas shigelloides Not detected Not Detected [facility] Rotavirus A Not detected Not Detected [facility] Salmonella Not detected Not Detected [facility] Sapovirus Not detected Not Detected [facility] Shiga toxin-producing E coli (STEC) Not detected Not Detected [facility] Shigella/Enteroinvasive E coli (EIEC) Not detected Not Detected [facility] Vibrio cholerae Not detected Not Detected [facility] Vibrio species Not detected Not Detected [facility] Yersinia enterocolitica Not detected Not Detected [facility] A positive Norovirus result on the Film Array GI panel should be interpreted in the context of the patient's history and clinical picture. If results are not consistent, result should be confirmed with a Norovirus specific assay. Methodology: Multiplex PCR [facility] LACTIC ACID WITH REFLEXon Lactate [Moles/Vol] 1.9 mmol/L Normal 0.5-2.2 [facility] Comment on above: Performed By: #### L [id number] ####Material Requisitioner: VELMA VALADEZ ([id number])[facility] (SACLAB[address] LIPASEon 08-03-2024 Lipase [Catalytic activity/Vol] 8 U/L Normal <55 [facility] Comment on above: Performed By: #### L AB17, [id number], LAB99 ####Material Requisitioner: VELMA VALADEZ ([id number])[facility] (SWRLAB)[address] [place] [address] Laboratory - Chemistry and C hemistry - challengeon 08-03-2024 Lactate [Moles/Vol] 1.9 mmol/L 0.5 - 2. 2 mmol/L [facility] Anion gap (Bld) [Moles/Vol] 8 mmol/L 3.00 - 13.00 [facility] Calcium.ionized (Bld) [Moles/Vol] 4.7 mg/dl 4.30 - 5.20 mg/dl [facility] Chloride [Moles/Vol] 107 mmol/L 98 - 11 4 mmol/L [facility] CO2 [Moles/Vol] 23 mmol/L 21 - 29 mmol/L [facility] Creatinine [Mass/Vol] 1.3 mg/dL 0.6 - 1.3 mg/dL [facility] GFR/1.73 sq M.predicted CKD-EPI (S/P/Bld) [Vol rate/Area] 40.6 [facility] Comment on above: KDIGO guidelines pro vide [...] 118 mg/dL High 70 - 100 mg/dL [facility] Potassium [Moles/Vol] 4.3 mmol/L 3.4 - 5.1 mmol/L [facility] Sodium [Moles/Vol] 138 mmol/L 133 - 145 mmol/L [facility] Urea (Bld) [Mass/Vol] 33 mg/dL High 4 - 22 mg/dL [facility] Lipase [Catalytic activity/Vol] 8 U/L NINF - 55 U/L [facility] Magnesium [Mass/Vol] 1.9 mg/dL 1.6 - 2 .6 mg/dL [facility] Laboratory - Microbiology an d Antimicrobial susceptibilityon 08-03-2024 FLUAV RNA OXANA+probe Ql (Resp) Not detected Not Detected [facility] FLUBV RNA OXANA+probe Ql (Resp) Not detected Not Detected [facility] RSV RNA OXANA+probe Ql (Resp) Not detected Not Detected [facility] SARS-CoV-2 (COVID-19) RNA OXANA+probe Ql (Resp) Not detected Not Detected [facility] SARS-CoV-2 (COVID-19) RNA OXANA+probe Ql (Unsp spec) Methodology: real-time, RT-PCR The SARS-CoV-2, Flu A/B, and RSV Combo assay is intended for in vitro diagnostic use under the FDA Emergency Use Authorization (EUA). This test has not been FDA cleared or approved. In compliance with this authorization, please visit www.fda.gov/media/97350 5/download or www.fda.gov/media/40619 6/download to access the applicable information sheets. [facility] MAGNESIUMon 08-03-2024 Magnesium [Mass/Vol] 1.9 mg/dL Normal 1.6-2.6 [facility] Comment on above: Result Comment: BUBBA R COMMENTS:Higher values can be expected in females during menses. Performed By: #### L AB17, [id number], LAB99 ####Material Requisitioner: VELMA VALADEZ ([id number])[facility] [employer] [place] (SWRLAB)[address] [place] [address] MANUAL DIFFERENTIALon 2024 BASOPHILS (10*3/UL) IN BLOOD BY MANUAL COUNT 0.0 10*3/uL Normal 0.0-0.2 [facility] Comment on above: Performed By: #### L [id number], [id number] ####Material Requisitioner: VELMA VALADEZ ([id number])[facility] HOSPITALJunction Solutions [place] (SWRLAB)[address] [place] [address] [place] BASOPHILS TOTAL PER COUNTED LEUKOCYTES BY MANUAL COUNT 0 Normal [facility] Comment on above: Performed By: #### L [id number], [id number] ####Material Requisitioner: VELMA VALADEZ ([id number])[facility] ROS[employer]ELA [place] (SWRLAB)[address] [place] [address] [place] BASOPHILS/100 LEUKOCYTES IN BLOOD BY MANUAL COUNT 0 % Normal 0-2 [facility] Comment on above: Performed By: #### L [id number], [id number] ####Material Requisitioner: VELMA VALADEZ ([id number])[facility] ROS[place]ELA [place] (SWRLAB)[address] [place], [place] [address] [place] CELLS COUNTED TOTAL (#) IN BLOOD 100 Normal [facility] Comment on above: Performed By: #### L [id number], [id number] ####Material Requisitioner: VELMA VALADEZ ([id number])[facility] ROSANGELA [place] (SWRLAB)[address] [place] [address] [place] DIFFERENTIAL METHOD Automated differenti al reported after manual slide review Normal [facility] Comment on above: Performed By: #### L [id number], [id number] ####Material Requisitioner: VELMA VALADEZ ([id number])[facility]ITALA ROSANGELA [place] (SWRLAB)[address] [place] [address] [place] EOSINOPHILS (10*3/UL) IN BLOOD BY MANUAL COUNT 0.1 10*3/uL Normal 0.0-0.5 [facility] Comment on above: Performed By: #### Weston [id number], TAO8897 ####Material Requisitioner: VELMA VALADEZ ([id number])[facility] [place] [place] (SWRLAB)[address] [place] [address] [place] EOSINOPHILS TOTAL PER COUNTED LEUKOCYTES BY MANUAL COUNT 1 Normal 0-1 [facility] Comment on above: Performed By: #### Weston [id number], [id number] ####Material Requisitioner: VELMA VALADEZ ([id number])[facility] [place] (SWRLAB)[address] [place] [address] [place] EOSINOPHILS/100 LEUKOCYTES IN BLOOD BY MANUAL COUNT 1 % Normal 0-6 [facility] Comment on above: Performed By: #### L [id number], [id number] ####Material Requisitioner: VELMA VALADEZ ([id number])[facility]ITALA [place]ANGELA [place] (SWRLAB)[address] [place] [address] [place] LEUKOCYTE MORPHOLOGY FINDING IN BLOOD Normal Normal [facility] Comment on above: Performed By: #### L [id number], [id number] ####Material Requisitioner: VELMA VALADEZ ([id number])[facility] [place] (SWRLAB)[address] [place] [address] [place] LEUKOCYTES (10*3/UL) NUCLEATED ERYTHROCYTE ADJUST 9.1 10*3/uL Normal 3.6-10.7 [facility] Comment on above: Performed By: #### L [id number], [id number] ####Material Requisitioner: VELMA VALADEZ ([id number])[facility]ITALA ROSANGELA [place] (SWRLAB)[address] [place] [address] [place] LYMPHOCYTES (10*3/UL) IN BLOOD BY MANUAL COUNT 0.5 10*3/uL Low 1.0-4.3 [facility] Comment on above: Performed By: #### L [id number], [id number] ####Material Requisitioner: VELMA VALADEZ ([id number])[facility]ITALA [place]ANGELA [place] (SWRLAB)[address] [place] [address] [place] LYMPHOCYTES TOTAL PER COUNTED LEUKOCYTES BY MANUAL COUNT 5 Normal [facility] Comment on above: Performed By: #### Weston [id number], [id number] ####Material Requisitioner: VELMA VALADEZ ([id number])[facility]ITALA [place]ANGELA [place] (SWRLAB)[address] [place] [address] [place] LYMPHOCYTES/100 LEUKOCYTES IN BLOOD BY MANUAL COUNT 5 % Low 15-45 [facility] Comment on above: Performed By: #### L [id number], [id number] ####Material Requisitioner: VELMA VALADEZ ([id number])[facility] HOSPITALSimran SANCHEZROSANGELA [place] (SWRLAB)[address] [place] [address] [place] MONOCYTES (10*3/UL) IN BLOOD BY MANUAL COUNT 0.5 10*3/uL Normal 0.0-0.9 [facility] Comment on above: Performed By: #### L [id number], [id number] ####Material Requisitioner: VELMA VALADEZ ([id number])[facility]PITALA ROSANGELA [place] (SWRLAB)[address] [place] [address] [place] MONOCYTES TOTAL PER COUNTED LEUKOCYTES BY MANUAL COUNT 6 Normal [facility] Comment on above: Performed By: #### L [id number], [id number] ####Material Requisitioner: VELMA VALADEZ ([id number])[facility] ADAMES [place] (SWRLAB)[address] [place] [address] [place] MONOCYTES/100 LEUKOCYTES IN BLOOD BY MANUAL COUNT 6 % Normal 5-13 [facility] Comment on above: Performed By: #### L JZ5655, [id number] ####Material Requisitioner: VELMA VALADEZ ([id number])[facility] ROSANGELA [place] (SWRLAB)[address] [place] [address] [place] NEUTROPHILS (SEGS+BANDS) (10*3/UL) BY MANUAL COUNT 7.9 10*3/uL High 1.8-7.0 [facility] Comment on above: Performed By: #### L IL1579, [id number] ####Material Requisitioner: VELMA VALADEZ ([id number])[facility]OSPITALSimran ADAMES [place] (SWRLAB)[address] [place] [address] [place] NEUTROPHILS TOTAL PER COUNTED LEUKOCYTES BY MANUAL COUNT 87 Normal [facility] Comment on above: Performed By: #### L [id number], AGT9838 ####Material Requisitioner: VELMA VALADEZ ([id number])[facility]OSPITALSimran SANCHEZROSANGELA [place] (SWRLAB)[address] [place] [address] [place] PLATELET MORPHOLOGY IN BLOOD Normal Normal [facility] Comment on above: Performed By: #### L [id number], [id number] ####Material Requisitioner: VELMA VALADEZ ([id number])[facility]ITALA [place]ANGELA [place] (SWRLAB)[address] [place] [address] [place] RBC MORPHOLOGY IN BLOOD Normal Normal [facility] Comment on above: Performed By: #### L [id number], [id number] ####Material Requisitioner: VELMA VALADEZ ([id number])[facility]OSPITALSimran SANCHEZROSANGELA [place] (SWRLAB)[address] [place] [address] [place] SEGEMENTED NEUTROPHILS/100 LEUKOCYTES BY MANUAL COUNT 87 % High 38-82 [facility] Comment on above: Performed By: #### L [id number], [id number] ####Material Requisitioner: VELMA VALADEZ ([id number])[facility] [employer] [place] (SWRLAB)[address] [place] [address] [place] UNCLASSIFIED CELLS (10*3/UL) IN BLOOD BY MANUAL COUNT 0.1 10*3/uL Normal [facility] Comment on above: Performed By: #### L [id number], [id number] ####Material Requisitioner: VELMA VALADEZ ([id number])[facility]ITALA [facility]ELA [place] (SWRLAB)[address] [place] [address] [place] UNCLASSIFIED CELLS/100 LEUKOCYTES IN BLOOD 1.00 % Normal [facility] Comment on above: Performed By: #### L [id number], [id number] ####Material Requisitioner: VELMA VALADEZ ([id number])[facility] [employer] [place] (SWRLAB)[address] [place] [address] [place] Magnesium [Mass/Vol]on 08-03 Higher values can be expected in females during menses. [facility] Manual differential performe d Ql (Bld)on 08-03-2024 Basophils (Bld) [#/Vol] 0 10*3/uL 0.0 - 0.2 10*3/uL [facility] Basophils Manual 0 [facility] alth Basophils/100 WBC (Bld) 0 % 0 - 2 % [facility] Cells Counted Total (Bld) [#] 100 {cells} [facility] Differential Method Automated differenti al reported after manual slide review [facility] Eosinophils (Bld) [#/Vol] 0.1 10*3/uL 0.0 - 0.5 10*3/uL [facility] Eosinophils Manual 1 0 - 1 [facility] Eosinophils/100 WBC (Bld) 1 % 0 - 6 % [facility] Leukocyte morphology finding Nom (Bld) Normal [facility] Lymphocytes (Bld) [#/Vol] 0.5 10*3/uL Low 1.0 - 4.3 10*3/uL [facility] Lymphocytes Manual 5 [facility] Lymphocytes/100 WBC (Bld) 5 % Low 15 - 45 % [facility] Monocytes (Bld) [#/Vol] 0.5 10*3/uL 0.0 - 0.9 10*3/uL [facility] Monocytes Manual 6 [facility] alth Monocytes/100 WBC (Bld) 6 % 5 - 13 % [facility] Neutrophils (Bld) [#/Vol] 7.9 10*3/uL High 1.8 - 7.0 10*3/uL [facility] Neutrophils Manual 87 [facility] Platelet morphology finding Nom (Bld) Normal [facility] RBC morphology finding Nom (Bld) Normal [facility] Segmented neutrophils/100 WBC (Bld) 87 % High 38 - 82 % [facility] Unclassified Cells % 1 % [facility] Unclassified Cells, Abs. 0.1 10*3/uL [facility] WBC corrected for nucl RBC (Bld) [#/Vol] 9.1 10*3/uL 3.6 - 10.7 10*3/uL [facility] No Panel Informationon 08-03 Interpretation and review of laboratory results Normal [facility] Interpretation and review of laboratory results Abnormal [facility] Performed by: [facility], [address] [place] [address] CLIA ID: [id number] [facility] Interpretation and review of laboratory results Normal [facility] No Panel InformationOrdered By: Christin Mayes on 08-03-2024 Interpretation and review of laboratory results Abnormal [facility] SARS-COV-2, FLU A/B, AND RSV COMBOon 08-03-2024 SARS-CoV-2 (COVID-19) RNA OXANA+probe Ql (Unsp spec) Normal [facility] Comment on above: Performed By: #### L [id number] ####Material Requisitioner: VELMA VALADEZ ([id number])[facility]OSPITALSim[facility] BAUTISTA (SWRLAB)[address] [place] [address] SARS-CoV-2, Flu A/B, and RSV Comboon 08-03-2024 Interpretation and review of laboratory results Normal [facility] XR Chest Single viewon 08-03 No acute abnormality Report Dictated on Electronically Signed By: Ming Fry MD Electronically Signed Date/Time: 08/03/2024 3:33 AM [facility] RADIOLOGY SYSTEM Patient Name: MEL CARVER RD [...] within the right humerus. No acute fracture. [facility] Ming Fry MD - 08/03/2024 Patient [...] Electronically Signed Date/Time: 08/03/2024 3:33 AM EST [facility] Radiology Study observation (narrative) [facility] alth XR Chest Single viewOrdered By: Ming Fry on 08-03-2024 [facility] Work Phone: ANES POSTPROC EVALon 025 ANES POSTPROC EVAL HNO ID: [id number] Author: ROBINSON BRUNNER MD Service: ? Author Type: Anesthesiologist Type: Anesthesia Postprocedure Evaluation Filed: 07/31/2024 12:48 Note Text: POST ANESTHESIA EVALUATION NOTE : 1940 Procedure Summary Date: 07/27/24 Room / Location: [address] Anesthesia Start: 1114 Anesthesia Stop: 1322 [...] with this procedure. Documented by Mikhail Nichols APRN.LAND MANAGER 07/27/2024 1:22 PM EST SIGNATURE: Robinson Pizano MD PATIENT NAME: Mel Castillo DATE: July 31, 2024 TIME: 12:46 PM CSN: [id number] [facility] ANES PRE-OPon 07-27-2024 ANES PRE-OP HNO ID: [id number] Author: ROBINSON BRUNNER MD Service: ? Author Type: Anesthesiologist Type: Anesthesia Preprocedure Evaluation Filed: 07/27/2024 11:10 Note Text: ANESTHESIOLOGY DAY OF SURGERY NOTE : 1940 Procedure Information Date/Time: 07/27/24 1110 Procedures: VITRECTOMY 25G [facility] PARS PLANA APPROACH W/ REMOVAL OF PRERETINAL CELLULAR MEMBRANE (Right: Eye) RELEASE OF VITREOUS, CHOROIDAL FLUID, PARS PLANA APPROACH (Right: Eye) Location: [place] [address] / [facility] Surgeons: Savana Lopez MD Estimated [...] content not included)... Normal [facility] OPERATIVE NOon 07-27-2024 OPERATIVE NO HNO ID: [id number] Author: SAVANA LOPEZ MD Service: Ophthalmology Author Type: Physician Type: Operative Report Filed: 07/27/2024 13:20 Note Text: [place] [address] [place] [facility] OPERATIVE REPORT LOG ID: [id number] Surgery/Procedure Date: 07/27/2024 Incision/Procedure Start Time: 11:39 AM Incision Close/Procedure End Time: 1:07 PM NAME: Mel Serna [facility] #: [id number] SURGEON(S) AND BENCH LAY OUT TECHNICIAN(S): Surgeons and Role: Panel 1: * Savana [...] was repaired by the use of max supervisor car and yard forceps and vitreous cutter. This was a [...] content not included)... Normal [facility] BSCAN OD (RIGHT EYE)on 07-24 [facility] Right eye Photo documentatio non 07-24-2024 [facility] BSCAN OD (RIGHT EYE)on 07-23 Radiology Study observation (narrative) [facility] Right eye Photo documentatio non 07-23-2024 Radiology Study observation (narrative) [facility] CASE MANAGEMon 07-18-2024 CASE MANAGEM HNO ID: [id number] Author: DOMINIQUE RAMSAY LSW Service: ? Author Type: Decorating Kiln Operator Type: Care Mgt Progress Note Filed: 07/18/2024 [...] Arrangements: Ambulance Transportation Agency and Phone #:: [facility] [phone] Date of Trip: 07/18/24 Time of Trip: 1100 Type of Service: BLS Non-emergency Handoff Communication: Handoff to: Primary Care Physician Primary Care Physician Name/Phone: Jared Evans Additional Information: Discharge Information Row Name Admission (Current) from 07/07/2024 in HOSP MAIN H060 [facility] Agency [address] [address] Patient d/c ready to [facility] via [facility] with machine operator hop picker scheduled for 11am today by Stretcher. Patient aware of plan. Bedside RN aware of plan and provided number to call report for nurse report; call [phone] :) Career Resource Technician can transfer you to the 2nd floor. . 7000 and DC instructions sent to [facility] via [employer] and are in DC packet. DC packet in chart to go with patient. SIGNATURE: SHAQUILLE Garay PATIENT NAME: Mel Castillo DATE: July 18, 2024 TIME: 11:19 AM Normal [facility] CBC panel Auto (Bld)on 07-18 Erythrocyte distribution width (RBC) [Ratio] 17.5 % High 11.5-15.[address] [facility] Comment on above: Order Comment: Speci men Type: BLOOD SPECIMEN Ordering Facility: [facility] Address: [address] [place] [address] Performed By: #### 5 8410-2 #### [facility] CLIA [id number] [address] [place] [address] [place] Hematocrit (Bld) [Volume fraction] 33.8 % Low 36.0-46.[address] [facility] Comment on above: Order Comment: Speci men Type: BLOOD SPECIMEN Ordering Facility: [facility] Address: [address] [place] [address] Performed By: #### 5 8410-2 #### [facility] CLIA [id number] [address] [place] [address] [place] Hemoglobin (Bld) [Mass/Vol] 10.5 g/dL Low 11.5-15.[address] [facility] Comment on above: Order Comment: Speci men Type: BLOOD SPECIMEN Ordering Facility: [facility] Address: [address] [place] [address] Performed By: #### 5 8410-2 #### [facility] CLIA [id number] [address] [place] [address] [place] MCH (RBC) [Entitic mass] 26.0 pg Normal 26.0-34.[address] [facility] Comment on above: Order Comment: Speci men Type: BLOOD SPECIMEN Ordering Facility: [facility] Address: [address] [place] [address] Performed By: #### 5 8410-2 #### [facility] CLIA [id number] [address] [place] [address] [place] MCHC (RBC) [Mass/Vol] 31.1 g/dL Normal 30.5-36.0 [facility] Comment on above: Order Comment: Speci men Type: BLOOD SPECIMEN Ordering Facility: [facility] Address: [address] [place] [address] Performed By: #### 5 8410-2 #### [facility] CLIA [id number] [address] [place] [address] [place] MCV (RBC) [Entitic vol] 83.7 fL Normal 80.0-100.0 [facility] Comment on above: Order Comment: Speci men Type: BLOOD SPECIMEN Ordering Facility: [facility] Address: [address] [place] [address] Performed By: #### 5 8410-2 #### [facility] CLIA [id number] [address] [place] [address] [place] Nucleated RBC (Bld) [#/Vol] 10*3/uL Normal <0.[address] [facility] Comment on above: Order Comment: Speci men Type: BLOOD SPECIMEN Ordering Facility: [facility] Address: [address] [place] [address] Performed By: #### 5 8410-2 #### [facility] CLIA [id number] [address] [place] [address] [place] Platelet mean volume (Bld) [Entitic vol] 9.3 fL Normal 9.0-12.[address] [facility] Comment on above: Order Comment: Speci men Type: BLOOD SPECIMEN Ordering Facility: [facility] Address: [address] [place] [address] Performed By: #### 5 8410-2 #### [facility] CLIA [id number] [address] [place] [address] [place] Platelets (Bld) [#/Vol] 386 10*3/uL Normal 150-[address] [facility] Comment on above: Order Comment: Speci men Type: BLOOD SPECIMEN Ordering Facility: [facility] Address: [address] [place] [address] Performed By: #### 5 8410-2 #### [facility] CLIA [id number] [address] [place] [address] [place] RBC (Bld) [#/Vol] 4.04 10*6/uL Normal 3.90-5.20 [facility] Comment on above: Order Comment: Speci men Type: BLOOD SPECIMEN Ordering Facility: [facility] Address: [address] [place] [address] Performed By: #### 5 8410-2 #### [facility] CLIA [id number] [address] [place] [address] [place] WBC (Bld) [#/Vol] 10.81 10*3/uL Normal 3.70-11.00 [facility] Comment on above: Order Comment: Speci men Type: BLOOD SPECIMEN Ordering Facility: [facility] Address: [address] [place] [address] Performed By: #### 5 8410-2 #### [facility] CLIA [id number] [address] [place] [address] [place] CNDSon 07-18-2024 CNDS HNO ID: [id number] Author: BRIANA PRITCHARD MD Service: General Internal [...] content not included)... Normal [facility] Renal function 2000 panelon 07-18-2024 Albumin [Mass/Vol] 3.2 g/dL Low 3.9-4.9 [facility] Comment on above: Order Comment: Samiri isabella Type: BLOOD SPECIMEN Ordering Facility: [facility] Address: [address] [place] [address] Performed By: #### 2 4362-6 #### [facility] CLIA [id number] [address] [place] [address] [place] Anion gap [Moles/Vol] 11 mmol/L Normal 8-15 [facility] Comment on above: Order Comment: Speci men Type: BLOOD SPECIMEN Ordering Facility: [facility] Address: [address] [place] [address] Performed By: #### 2 4362-6 #### [facility] CLIA [id number] [address] [place] [address] [place] Calcium [Mass/Vol] 9.3 mg/dL Normal 8.5-10.2 [facility] Comment on above: Order Comment: Speci men Type: BLOOD SPECIMEN Ordering Facility: [facility] Address: [address] [place] [address] Performed By: #### 2 4362-6 #### [facility] CLIA [id number] [address] [place] [address] [place] Chloride [Moles/Vol] 102 mmol/L Normal 98-107 [facility] Comment on above: Order Comment: Speci men Type: BLOOD SPECIMEN Ordering Facility: [facility] Address: [address] [place] [address] Performed By: #### 2 4362-6 #### [facility] CLIA [id number] [address] [place] [address] [place] CO2 [Moles/Vol] 25 mmol/L Normal 22-[address] [facility] Comment on above: Order Comment: Speci men Type: BLOOD SPECIMEN Ordering Facility: [facility] Address: [address] [place] [address] Performed By: #### 2 4362-6 #### [facility] CLIA [id number] [address] [place] [address] [place] Creatinine [Mass/Vol] 0.90 mg/dL Normal 0.58-0.96 [facility] Comment on above: Order Comment: Speci men Type: BLOOD SPECIMEN Ordering Facility: [facility] Address: [address] [place] [address] Performed By: #### 2 4362-6 #### [facility] CLIA [id number] [address] [place] [address] [place] Creatinine and Glomerular filtration rate.predicted panel (S/P/Bld) 63 mL/min/1.73m??? Normal >=[address] [facility] Comment on above: Order Comment: Speci men Type: BLOOD SPECIMEN Ordering Facility: [facility] Address: [address] [place] [address] Result Comment: Isa mated Glomerular Filtration Rate [...] GFR. Performed By: #### 2 4362-6 #### [facility] CLIA [id number] [address] [place] [address] [place] Glucose [Mass/Vol] 105 mg/dL High 74-99 [facility] Comment on above: Order Comment: Speci men Type: BLOOD SPECIMEN Ordering Facility: [facility] Address: [address] [place] [address] Result Comment: The [place] Diabetes [employer] (ADA) provides guidance for cutoff [...] Standards of Medical Care in Diabetes 2016, [place] [employer]. Diabetes Care. 2016.39(Suppl 1). Performed By: #### 2 4362-6 #### [facility] CLIA [id number] [address] [place] [address] [place] Phosphate [Mass/Vol] 3.0 mg/dL Normal 2.7-4.8 [facility] Comment on above: Order Comment: Rhina mason Type: BLOOD SPECIMEN Ordering Facility: [facility] Address: [address] [place] [address] Performed By: #### 2 4362-6 #### [facility] CLIA [id number] [address] [place] [address] [place] Potassium [Moles/Vol] 4.5 mmol/L Normal 3.7-5.1 [facility] Comment on above: Order Comment: Samiri men Type: BLOOD SPECIMEN Ordering Facility: [facility] Address: [address] [place] [address] Performed By: #### 2 4362-6 #### [facility] CLIA [id number] [address] [place] [address] [place] Sodium [Moles/Vol] 138 mmol/L Normal 136-144 [facility] Comment on above: Order Comment: Speci men Type: BLOOD SPECIMEN Ordering Facility: [facility] Address: [address] [place] [address] Performed By: #### 2 4362-6 #### [facility] CLIA [id number] [address] [place] [address] [place] Urea nitrogen [Mass/Vol] 17 mg/dL Normal 7-[address] [facility] Comment on above: Order Comment: Speci men Type: BLOOD SPECIMEN Ordering Facility: [facility] Address: [address] [place] [address] Performed By: #### 2 4362-6 #### [facility] CLIA [id number] [address] [place] [address] [place] CASE MANAGEMon 07-17-2024 CASE MANAGEM HNO ID: [id number] Author: ?, ?, ? Service: ? Author Type: ? Type: Care Mgt Progress Note Filed: 07/17/2024 14:07 Note Text: CARE MANAGEMENT PROGRESS NOTE SERVICE DATE: 07/17/2024 SERVICE TIME: 2:07 PM LOS: 10 days Discharge packet completed and dropped off by studio assistant Tamiko Holley. Packet is missing AVS/DC forms, please reach out to case technician with any discharge related questions. SIGNATURE: Tamiko Holley PATIENT NAME: Mel Castillo DATE: July 17, 2024 TIME: 2:07 PM Normal [facility] CASE MANAGEM HNO ID: [id number] Author: DOMINIQUE RAMSAY LSW Service: ? Author Type: Decorating Kiln Operator Type: Care Mgt Progress Note Filed: 07/17/2024 13:44 Note Text: CARE MANAGEMENT HOLIDAY PLANNING NOTE DISCHARGE OR POSSIBLE DISCHARGE Date/Time: 07/18 at 11am Disposition: [facility] Facility - Precert Obtained: Yes Facility Name: [facility] Facility Phone #: Transport: Mode of Transportation: Ambulance Transportation Agency and Phone #: [facility] [phone] . Date of Trip: 07/18/2024 at 11am Other Concerns: 11 am DC via [facility] trip# #[id number] to take Pt to [facility]. Pre-cert is approved, a bed is available, and Pt is medically ready. 7000 has been tasked. DC packet has been tasked. DNR form is on green chart. Weekend Clin Application Specialist Pager #: Please see Treatment Team for Care Management Weekend/Holiday coverage. SIGNATURE: SHAQUILLE Garay PATIENT NAME: Mel Castillo DATE: July 17, 2024 TIME: 1:42 PM PAGER/CONTACT #: [facility] CASE MANAGEM HNO ID: [id number] Author: BASILIA CAPPS, ? Service: ? Author Type: ? Type: Care Mgt Progress Note Filed: 07/17/2024 13:14 Note Text: [facility] PRECERT NOTE [employer] MEDICARE PPO approved [facility] Facility for [facility] . Precert approved through 07/19/2024. For any additional questions regarding approvals, transport or care management needs, please contact the CM assigned to this patient in the Treatment Team. SIGNATURE: Basilia Capps DATE: July 17, 2024 TIME: 1:14 PM [facility] CASE MANAGEM HNO ID: [id number] Author: DOMINIQUE RAMSAY LSW Service: General Internal Medicine Author Type: Decorating Kiln Operator Type: Care Mgt Progress Note Filed: 07/17/2024 11:29 Note Text: Attestation signed by Thomas Car DO at 07/17/2024 11:37 AM Thomas Car D.O. PGY-2 Internal Medicine Resident [facility] Click here to page July 17, 2024 [...] Briana Pritchard MD Normal [facility] CBC panel Auto (Bld)on 07-17 Erythrocyte distribution width (RBC) [Ratio] 17.2 % High 11.5-15.[address] [facility] Comment on above: Order Comment: Rhina mason Type: BLOOD SPECIMEN Ordering Facility: [facility] Address: [address] [place] [address] Performed By: #### 2 276-4 #### [facility] CLIA [id number] [address] [place] [address] [place] Hematocrit (Bld) [Volume fraction] 32.3 % Low 36.0-46.[address] [facility] Comment on above: Order Comment: Rhina mason Type: BLOOD SPECIMEN Ordering Facility: [facility] Address: [address] [place] [address] Performed By: #### 2 276-4 #### [facility] CLIA [id number] [address] [place] [address] [place] Hemoglobin (Bld) [Mass/Vol] 10.2 g/dL Low 11.5-15.[address] [facility] Comment on above: Order Comment: Speci men Type: BLOOD SPECIMEN Ordering Facility: [facility] Address: [address] [place] [address] Performed By: #### 2 276-4 #### [facility] CLIA [id number] [address] [place] [address] [place] [facility] MCH (RBC) [Entitic mass] 26.5 pg Normal 26.0-34.[address] [facility] Comment on above: Order Comment: Speci men Type: BLOOD SPECIMEN Ordering Facility: [facility] Address: [address] [place] [address] Performed By: #### 2 276-4 #### [facility] CLIA [id number] [address] [place] [address] [place] MCHC (RBC) [Mass/Vol] 31.6 g/dL Normal 30.5-36.0 [facility] Comment on above: Order Comment: Speci men Type: BLOOD SPECIMEN Ordering Facility: [facility] Address: [address] [place] [address] Performed By: #### 2 276-4 #### [facility] CLIA [id number] [address] [place] [address] [place] MCV (RBC) [Entitic vol] 83.9 fL Normal 80.0-100.0 [facility] Comment on above: Order Comment: Speci men Type: BLOOD SPECIMEN Ordering Facility: [facility] Address: [address] [place] [address] Performed By: #### 2 276-4 #### [facility] CLIA [id number] [address] [place] [address] [place] Nucleated RBC (Bld) [#/Vol] 10*3/uL Normal <0.[address] [facility] Comment on above: Order Comment: Speci men Type: BLOOD SPECIMEN Ordering Facility: [facility] Address: [address] [place] [address] Performed By: #### 2 276-4 #### [facility] CLIA [id number] [address] [place] [address] [place] Platelet mean volume (Bld) [Entitic vol] 9.7 fL Normal 9.0-12.[address] [facility] Comment on above: Order Comment: Speci men Type: BLOOD SPECIMEN Ordering Facility: [facility] Address: [address] [place] [address] Performed By: #### 2 276-4 #### [facility] CLIA [id number] [address] [place] [address] [place] Platelets (Bld) [#/Vol] 362 10*3/uL Normal 150-[address] [facility] Comment on above: Order Comment: Speci men Type: BLOOD SPECIMEN Ordering Facility: [facility] Address: [address] [place] [address] Performed By: #### 2 276-4 #### [facility] CLIA [id number] [address] [place] [address] [place] RBC (Bld) [#/Vol] 3.85 10*6/uL Low 3.90-5.20 [facility] Comment on above: Order Comment: Speci men Type: BLOOD SPECIMEN Ordering Facility: [facility] Address: [address] [place] [address] Performed By: #### 2 276-4 #### [facility] CLIA [id number] [address] [place] [address] [place] WBC (Bld) [#/Vol] 9.41 10*3/uL Normal 3.70-11.00 [facility] Comment on above: Order Comment: Speci men Type: BLOOD SPECIMEN Ordering Facility: [facility] Address: [address] [place] [address] Performed By: #### 2 276-4 #### [facility] CLIA [id number] [address] [place] [address] [place] Renal function 2000 panelon 07-17-2024 Albumin [Mass/Vol] 3.3 g/dL Low 3.9-4.9 [facility] Comment on above: Order Comment: Speci men Type: BLOOD SPECIMENOrdering Facility: [facility] Address: [address] [place], [place] [address] Performed By: #### 2 4362-6 ####[facility] [id number] [address] [address] [place] Anion gap [Moles/Vol] 10 mmol/L Normal 8-15 [facility] Comment on above: Order Comment: Speci men Type: BLOOD SPECIMENOrdering Facility: [facility] Address: [address] [place], [place] [address] Performed By: #### 2 4362-6 ####[facility] [id number] [place] [address] [place] Calcium [Mass/Vol] 9.0 mg/dL Normal 8.5-10.2 [facility] Comment on above: Order Comment: Speci men Type: BLOOD SPECIMENOrdering Facility: [facility] Address: [address] [place], [place] [address] Performed By: #### 2 4362-6 ####[facility] [id number] [place] [address] [place] Chloride [Moles/Vol] 101 mmol/L Normal 98-107 [facility] Comment on above: Order Comment: Speci men Type: BLOOD SPECIMENOrdering Facility: [facility] Address: [address] [place], [place] [address] Performed By: #### 2 4362-6 ####[facility] [id number] [place] [id number] [place] CO2 [Moles/Vol] 25 mmol/L Normal 22-[address] [facility] Comment on above: Order Comment: Speci men Type: BLOOD SPECIMENOrdering Facility: [facility] Address: [address] [place], [place] [address] Performed By: #### 2 4362-6 ####[facility] [id number] [place] [address] [place] Creatinine [Mass/Vol] 0.94 mg/dL Normal 0.58-0.96 [facility] Comment on above: Order Comment: Rhina mason Type: BLOOD SPECIMENOrdering Facility: [facility] Address: [address] [place] [address] Performed By: #### 2 4362-6 ####[facility] [id number] [place] [address] [place] Creatinine and Glomerular filtration rate.predicted panel (S/P/Bld) 60 mL/min/1.73m??? Normal >=[address] [facility] Comment on above: Order Comment: Rhina mason Type: BLOOD SPECIMENOrdering Facility: [facility] Address: [address] [place] [address] Result Comment: Isa mated Glomerular Filtration Rate [...] actual GFR. Performed By: #### 2 4362-6 ####[facility] [id number] [place] [address] [place] Glucose [Mass/Vol] 112 mg/dL High 74-99 [facility] Comment on above: Order Comment: Rhina mason Type: BLOOD SPECIMENOrdering Facility: [facility] Address: [address] [place] [address] Result Comment: The [place] Diabetes Association (ADA) provides guidance for cutoff [...] Standards of Medical Care in Diabetes 2016, [place] [employer]. Diabetes Care. 2016.39(Suppl 1). Performed By: #### 2 4362-6 ####[facility] [id number] [place] [address] [place] Phosphate [Mass/Vol] 2.2 mg/dL Low 2.7-4.8 [facility] Comment on above: Order Comment: Speci men Type: BLOOD SPECIMENOrdering Facility: [facility] Address: [address] [place] [address] Performed By: #### 2 4362-6 ####[facility] [id number] [place] [address] [place] Potassium [Moles/Vol] 4.6 mmol/L Normal 3.7-5.1 [facility] Comment on above: Order Comment: Speci men Type: BLOOD SPECIMENOrdering Facility: [facility] Address: [address] [place] [address] Performed By: #### 2 4362-6 ####[facility] [id number] [place] [address] [place] Sodium [Moles/Vol] 136 mmol/L Normal 136-144 [facility] Comment on above: Order Comment: Speci men Type: BLOOD SPECIMENOrdering Facility: [facility] Address: [address] [place] [address] Performed By: #### 2 4362-6 ####[facility] [id number] [place] [id number] [place] Urea nitrogen [Mass/Vol] 20 mg/dL Normal 7-[address] [facility] Comment on above: Order Comment: Speci men Type: BLOOD SPECIMENOrdering Facility: [facility] Address: [address] [place] [address] Performed By: #### 2 4362-6 ####[facility]CLIA [id number] [facility] [place] [address] [place] THERAPY NTon 07-17-2024 THERAPY NT HNO ID: [id number] Author: SANTIAGO GUZMAN, OT/L Service: Occupational Therapy Author Type: Occupational Therapist Type: Therapy (PT/OT/Speech/Resp) Filed: 07/17/2024 15:14 Note Text: Occupational Therapy Treatment Summary SERVICE DATE: 07/17/2024 SERVICE TIME: 1425 to 1504 ROOM: [place] [address] OT 6 Clicks Score: 15 DISCHARGE RECOMMENDATIONS [...] Weakness (generalized) TREATMENT INTERVENTIONS Self Half-Way Management (88775) Timed Code Treatment (minutes): 39 Skilled Treatment [...] Sit to Stand, Standing Balance to Improve [place] with ADLs/Self-Care, Sitting Balance to Improve [place] with ADLs/Self-Care, Life Roles/Routines/Habits THERAPEUTIC SKILLS USED [...] to Sit Contact Guard Assistance Bed to [facility] (more content not included)... Normal [facility] THERAPY NT HNO ID: [id number] Author: GABRIELLA DALEY, PT Service: Physical Therapy Author Type: Physical Therapist Type: Therapy (PT/OT/Speech/Resp) Filed: 07/17/2024 09:31 Note Text: Physical Therapy Evaluation Summary SERVICE DATE: 07/17/2024 SERVICE TIME: 832 to 911 ROOM: [place] [address] PT 6 Clicks Score: 18 DISCHARGE RECOMMENDATIONS [...] DIAGNOSIS Reduced mobility-other TREATMENT INTERVENTIONS $ Evaluation-Moderate (37168) Billed Units: 1 unit Therapeutic Activity (86799) Treatment Minutes: 10 $ Therapeutic Activity (01419) Billed Units: 1 unit Gait Training (71816) Treatment Minutes: 14 $ Gait Training (50146) Billed Units: 1 unit Evaluation, Therapeutic Activity (92391), Gait Training (31083) Timed Code Treatment (minutes): 24 Skilled Treatment [...] content not included)... Normal [facility] BSCAN OD (RIGHT EYE)on 07-16 [facility] Radiology Study observation (narrative) [facility] CBC panel Auto (Bld)on 07-16 Erythrocyte distribution width (RBC) [Ratio] 17.8 % High 11.5-15.[address] [facility] Comment on above: Order Comment: Speci men Type: BLOOD SPECIMEN [facility] Address: [address] [place] [address] Performed By: #### 5 8410-2 #### [facility] CLIA [id number] [address] [place] [address] [place] Hematocrit (Bld) [Volume fraction] 33.2 % Low 36.0-46.[address] [facility] Comment on above: Order Comment: Speci men Type: BLOOD SPECIMEN [facility] Address: [address] [place] [address] Performed By: #### 5 8410-2 #### [facility] CLIA [id number] [address] [place] [address] [place] Hemoglobin (Bld) [Mass/Vol] 10.3 g/dL Low 11.5-15.[address] [facility] Comment on above: Order Comment: Speci men Type: BLOOD SPECIMEN [facility] Address: [address] [place] [address] Performed By: #### 5 8410-2 #### [facility] CLIA [id number] [address] [place] [address] [place] MCH (RBC) [Entitic mass] 25.6 pg Low 26.0-34.[address] [facility] Comment on above: Order Comment: Speci men Type: BLOOD SPECIMEN [facility] Address: [address] [place] [address] Performed By: #### 5 8410-2 #### [facility] CLIA [id number] [address] [place], [place] [address] [place] MCHC (RBC) [Mass/Vol] 31.0 g/dL Normal 30.5-36.0 [facility] Comment on above: Order Comment: Speci men Type: BLOOD SPECIMEN Ordering Facility: [facility] Address: [address] [place] [address] Performed By: #### 5 8410-2 #### [facility] CLIA [id number] [address] [place] [address] [place] MCV (RBC) [Entitic vol] 82.4 fL Normal 80.0-100.0 [facility] Comment on above: Order Comment: Speci men Type: BLOOD SPECIMEN Ordering Facility: [facility] Address: [address] [place] [address] Performed By: #### 5 8410-2 #### [facility] CLIA [id number] [address] [place] [address] [place] Nucleated RBC (Bld) [#/Vol] 10*3/uL Normal <0.[address] [facility] Comment on above: Order Comment: Speci men Type: BLOOD SPECIMEN Ordering Facility: [facility] Address: [address] [place] [address] Performed By: #### 5 8410-2 #### [facility] CLIA [id number] [address] [place] [address] [place] Platelet mean volume (Bld) [Entitic vol] 9.8 fL Normal 9.0-12.[address] [facility] Comment on above: Order Comment: Speci men Type: BLOOD SPECIMEN Ordering Facility: [facility] Address: [address] [place] [address] Performed By: #### 5 8410-2 #### [facility] CLIA [id number] [address] [place] [address] [place] Platelets (Bld) [#/Vol] 348 10*3/uL Normal 150-[address] [facility] Comment on above: Order Comment: Speci men Type: BLOOD SPECIMEN Ordering Facility: [facility] Address: [address] [place] [address] Performed By: #### 5 8410-2 #### [facility] CLIA [id number] [address] [place] [address] [place] RBC (Bld) [#/Vol] 4.03 10*6/uL Normal 3.90-5.20 [facility] Comment on above: Order Comment: Speci men Type: BLOOD SPECIMEN Ordering Facility: [facility] Address: [address] [place] [address] Performed By: #### 5 8410-2 #### [facility] CLIA [id number] [address] [place] [address] [place] WBC (Bld) [#/Vol] 11.15 10*3/uL High 3.70-11.00 [facility] Comment on above: Order Comment: Speci men Type: BLOOD SPECIMEN Ordering Facility: [facility] Address: [address] [place] [address] Performed By: #### 5 8410-2 #### [facility] CLIA [id number] [address] [place] [address] [place] FUNDUS PHOTOS OU (BOTH EYES) on 07-16-2024 [facility] Radiology Study observation (narrative) Amarjit chaudhry [facility] Renal function 2000 panelon 07-16-2024 Albumin [Mass/Vol] 3.1 g/dL Low 3.9-4.9 [facility] Comment on above: Order Comment: Speci men Type: BLOOD SPECIMENOrdering Facility: [facility] Address: [address] [place] [address] Performed By: #### 2 4362-6 ####[facility] [id number] [place] [address] [place] Anion gap [Moles/Vol] 12 mmol/L Normal 8-15 [facility] Comment on above: Order Comment: Speci men Type: BLOOD SPECIMENOrdering Facility: [facility] Address: [address] [id number] Performed By: #### 2 4362-6 ####[facility] [id number] [address] [address] [place] Calcium [Mass/Vol] 9.0 mg/dL Normal 8.5-10.2 [facility] Comment on above: Order Comment: Speci men Type: BLOOD SPECIMENOrdering Facility: [facility] Address: [address] [place], [place] [address] Performed By: #### 2 4362-6 ####[facility] [id number] [place] [address] [place] Chloride [Moles/Vol] 103 mmol/L Normal 98-107 [facility] Comment on above: Order Comment: Speci men Type: BLOOD SPECIMENOrdering Facility: [facility] Address: [address] [place], [place] [address] Performed By: #### 2 4362-6 ####[facility] [id number] [place] [address] [place] CO2 [Moles/Vol] 23 mmol/L Normal 22-[address] [facility] Comment on above: Order Comment: Speci men Type: BLOOD SPECIMENOrdering Facility: [facility] Address: [address] [place], [place] [address] Performed By: #### 2 4362-6 ####[facility] [id number] [place] [id number] [place] Creatinine [Mass/Vol] 1.09 mg/dL High 0.58-0.96 [facility] Comment on above: Order Comment: Speci men Type: BLOOD SPECIMENOrdering Facility: [facility] Address: [address] [place], [place] [address] Performed By: #### 2 4362-6 ####[facility] [id number] [place] [address] [place] Creatinine and Glomerular filtration rate.predicted panel (S/P/Bld) 50 mL/min/1.73m??? Low >=[address] [facility] Comment on above: Order Comment: Rhina mason Type: BLOOD SPECIMENOrdering Facility: [facility] Address: [address] [place] [address] Result Comment: Isa mated Glomerular Filtration Rate [...] GFR. Performed By: #### 2 4362-6 ####[facility] [id number] [place] [address] [place] Glucose [Mass/Vol] 103 mg/dL High 74-99 [facility] Comment on above: Order Comment: Rhina mason Type: BLOOD SPECIMENOrdering Facility: [facility] Address: [address] [place] [address] Result Comment: The [place] [employer] (ADA) provides guidance for cutoff [...] Standards of Medical Care in Diabetes 2016, [place] [employer]. Diabetes Care. 2016.39(Suppl 1). Performed By: #### 2 4362-6 ####[facility]IA [id number] [place] [address] [place] Phosphate [Mass/Vol] 2.9 mg/dL Normal 2.7-4.8 [facility] Comment on above: Order Comment: Speci men Type: BLOOD SPECIMENOrdering Facility: [facility] Address: [address] [place] [address] Performed By: #### 2 4362-6 ####[facility]CLIA [id number] [place] [address] [place] Potassium [Moles/Vol] 4.5 mmol/L Normal 3.7-5.1 [facility] Comment on above: Order Comment: Speci men Type: BLOOD SPECIMENOrdering Facility: [facility] Address: [address] [place] [address] Performed By: #### 2 4362-6 ####[facility]IA [id number] [place] [address] [place] Sodium [Moles/Vol] 138 mmol/L Normal 136-144 [facility] Comment on above: Order Comment: Speci men Type: BLOOD SPECIMENOrdering Facility: [facility] Address: [address] [place] [address] Performed By: #### 2 4362-6 ####[facility]IA [id number] [place] [address] [place] Urea nitrogen [Mass/Vol] 22 mg/dL High 7-[address] [facility] Comment on above: Order Comment: Speci men Type: BLOOD SPECIMENOrdering Facility: [facility] Address: [address] [place] [address] Performed By: #### 2 4362-6 ####[facility]IA [id number] [place] [address] [place] THERAPY NTon 07-16-2024 THERAPY NT HNO ID: [id number] Author: SANTIAGO GUZMAN OT/L Service: Occupational Therapy Author Type: Occupational Therapist Type: Therapy (PT/OT/Speech/Resp) Filed: 07/16/2024 15:10 Note Text: Occupational Therapy Treatment Summary SERVICE DATE: 07/16/2024 SERVICE TIME: 1415 to 1500 ROOM: H060[facility] OT 6 Clicks Score: 15 DISCHARGE RECOMMENDATIONS [...] Weakness (generalized) TREATMENT INTERVENTIONS Self Half-Way Management (49290) Timed Code Treatment (minutes): 45 Skilled Treatment [...] Sit to Stand, Standing Balance to Improve [place] with ADLs/Self-Care, Sitting Balance to Improve [place] with ADLs/Self-Care, Life Roles/Routines/Habits THERAPEUTIC SKILLS USED [...] content not included)... Normal [facility] CBC panel Auto (Bld)on 07-15 Erythrocyte distribution width (RBC) [Ratio] 17.8 % High 11.5-15.[address] [facility] Comment on above: Order Comment: Speci men Type: BLOOD SPECIMEN Ordering Facility: [facility] Address: [address] [place] [address] Performed By: #### 2 4362-6 #### [facility] CLIA [id number] [address] [place] [address] [place] Hematocrit (Bld) [Volume fraction] 34.4 % Low 36.0-46.[address] [facility] Comment on above: Order Comment: Speci men Type: BLOOD SPECIMEN Ordering Facility: [facility] Address: [address] [place] [address] Performed By: #### 2 4362-6 #### [facility] CLIA [id number] [address] [place] [address] [place] Hemoglobin (Bld) [Mass/Vol] 10.7 g/dL Low 11.5-15.[address] [facility] Comment on above: Order Comment: Speci men Type: BLOOD SPECIMEN Ordering Facility: [facility] Address: [address] [place] [address] Performed By: #### 2 4362-6 #### [facility] CLIA [id number] [address] [place] [address] [place] MCH (RBC) [Entitic mass] 26.2 pg Normal 26.0-34.[address] [facility] Comment on above: Order Comment: Speci men Type: BLOOD SPECIMEN Ordering Facility: [facility] Address: [address] [place] [address] Performed By: #### 2 4362-6 #### [facility] CLIA [id number] [address] [place] [address] [place] MCHC (RBC) [Mass/Vol] 31.1 g/dL Normal 30.5-36.0 [facility] Comment on above: Order Comment: Speci men Type: BLOOD SPECIMEN Order[facility] Facility[facility] Address: [address] [place] [address] Performed By: #### 2 4362-6 #### [facility] CLIA [id number] [address] [place] [address] [place] MCV (RBC) [Entitic vol] 84.1 fL Normal 80.0-100.0 [facility] Comment on above: Order Comment: Speci men Type: BLOOD SPECIMEN Order[facility] Facility: [facility] Address: [address] [place] [address] Performed By: #### 2 4362-6 #### [facility] CLIA [id number] [address] [place] [address] [place] Nucleated RBC (Bld) [#/Vol] 10*3/uL Normal <0.[address] [facility] Comment on above: Order Comment: Speci men Type: BLOOD SPECIMEN Order[facility] Facility: [facility] Address: [address] [place] [address] Performed By: #### 2 4362-6 #### [facility] CLIA [id number] [address] [place] [address] [place] Platelet mean volume (Bld) [Entitic vol] 10.1 fL Normal 9.0-12.[address] [facility] Comment on above: Order Comment: Speci men Type: BLOOD SPECIMEN Order[facility] Facility[facility] Address: [address] [place] [address] Performed By: #### 2 4362-6 #### [facility] CLIA [id number] [address] [place] [address] [place] Platelets (Bld) [#/Vol] 386 10*3/uL Normal 150-[address] [facility] Comment on above: Order Comment: Speci men Type: BLOOD SPECIMEN Order[facility] Facility: [facility] Address: [address] [place] [address] Performed By: #### 2 4362-6 #### [facility] CLIA [id number] [address] [place] [address] [place] RBC (Bld) [#/Vol] 4.09 10*6/uL Normal 3.90-5.20 [facility] Comment on above: Order Comment: Speci men Type: BLOOD SPECIMEN [facility] Address: [address] [place] [address] Performed By: #### 2 4362-6 #### [facility] CLIA [id number] [address] [place] [address] [place] WBC (Bld) [#/Vol] 10.20 10*3/uL Normal 3.70-11.00 [facility] Comment on above: Order Comment: Speci men Type: BLOOD SPECIMEN [facility] Address: [address] [place] [address] Performed By: #### 2 4362-6 #### [facility] CLIA [id number] [address] [place] [address] [place] Renal function 2000 panelon 07-15-2024 Albumin [Mass/Vol] 3.5 g/dL Low 3.9-4.9 [facility] Comment on above: Order Comment: Speci men Type: BLOOD SPECIMENOrdering Facility: [facility] Address: [address] [place] [address] Performed By: #### 2 4362-6 ####[facility] [id number] [place] [address] [place] Anion gap [Moles/Vol] 12 mmol/L Normal 8-15 [facility] Comment on above: Order Comment: Speci men Type: BLOOD SPECIMENOrdering Facility: [facility] Address: [address] [place] [address] Performed By: #### 2 4362-6 ####[facility] [id number] [place] [address] [place] Calcium [Mass/Vol] 9.1 mg/dL Normal 8.5-10.2 [facility] Comment on above: Order Comment: Speci men Type: BLOOD SPECIMENOrdering Facility: [facility] Address: [address] [place] [address] Performed By: #### 2 4362-6 ####[facility] [id number] [place] [address] [place] Chloride [Moles/Vol] 101 mmol/L Normal 98-107 [facility] Comment on above: Order Comment: Speci men Type: BLOOD SPECIMENOrdering Facility: [facility] Address: [address] [place] [address] Performed By: #### 2 4362-6 ####[facility]IA [id number] [place] [address] [place] CO2 [Moles/Vol] 24 mmol/L Normal 22-[address] [facility] Comment on above: Order Comment: Speci men Type: BLOOD SPECIMENOrdering Facility: [facility] Address: [address] [place] [address] Performed By: #### 2 4362-6 ####[facility]IA [id number] [place] [address] [place] Creatinine [Mass/Vol] 0.96 mg/dL Normal 0.58-0.96 [facility] Comment on above: Order Comment: Speci men Type: BLOOD SPECIMENOrdering Facility: [facility] Address: [address] [place] [address] Performed By: #### 2 4362-6 ####[facility] [id number] [place] [address] [place] Creatinine and Glomerular filtration rate.predicted panel (S/P/Bld) 58 mL/min/1.73m??? Low >=[address] [facility] Comment on above: Order Comment: Speci men Type: BLOOD SPECIMENOrdering Facility: [facility] Address: [address] [place] [address] Result Comment: Isa mated Glomerular Filtration Rate [...] actual GFR. Performed By: #### 2 4362-6 ####[facility]CLIA [id number] [address] [address] [place] Glucose [Mass/Vol] 93 mg/dL Normal 74-99 [facility] Comment on above: Order Comment: Rhina mason Type: BLOOD SPECIMENOrdering Facility: [facility] Address: [address] [place] [address] Result Comment: The [place] [employer] (ADA) provides guidance for cutoff [...] Standards of Medical Care in Diabetes 2016, [place] [employer]. Diabetes Care. 2016.39(Suppl 1). Performed By: #### 2 4362-6 ####[facility] LABCLIA [id number] [place] [id number] [place] Phosphate [Mass/Vol] 3.1 mg/dL Normal 2.7-4.8 [facility] Comment on above: Order Comment: Specrobson maosn Type: BLOOD SPECIMENOrdering Facility: [facility] Address: [address] [place] [address] Performed By: #### 2 4362-6 ####[facility]CLIA [id number] [address] [address] [place] Potassium [Moles/Vol] 4.3 mmol/L Normal 3.7-5.1 [facility] Comment on above: Order Comment: Speci men Type: BLOOD SPECIMENOrdering Facility: [facility] Address: [address] [place] [address] Performed By: #### 2 4362-6 ####[facility]CLIA [id number] [place] [id number] [place] Sodium [Moles/Vol] 137 mmol/L Normal 136-144 [facility] Comment on above: Order Comment: Speci men Type: BLOOD SPECIMENOrdering Facility: [facility] Address: [address] [place] [address] Performed By: #### 2 4362-6 ####[facility]CLIA [id number] [place] [address] [place] Urea nitrogen [Mass/Vol] 19 mg/dL Normal 7-[address] [facility] Comment on above: Order Comment: Speci men Type: BLOOD SPECIMENOrdering Facility: [facility] Address: [address] [place] [address] Performed By: #### 2 4362-6 ####[facility]IA [id number] [place] [address] [place] CBC panel Auto (Bld)on 07-14 Erythrocyte distribution width (RBC) [Ratio] 17.9 % High 11.5-15.[address] [facility] Comment on above: Order Comment: Speci men Type: BLOOD SPECIMEN [facility] Address: [address] [place] [address] Performed By: #### 2 4362-6 #### [facility] CLIA [id number] [address] [place] [address] [place] Hematocrit (Bld) [Volume fraction] 33.8 % Low 36.0-46.[address] [facility] Comment on above: Order Comment: Speci men Type: BLOOD SPECIMEN [facility] Address: [address] [place] [address] Performed By: #### 2 4362-6 #### [facility] CLIA [id number] [address] [place] [address] [place] Hemoglobin (Bld) [Mass/Vol] 10.7 g/dL Low 11.5-15.[address] [facility] Comment on above: Order Comment: Speci men Type: BLOOD SPECIMEN [facility] Address: [address] [place] [address] Performed By: #### 2 4362-6 #### [facility] CLIA [id number] [address] [place] [address] [place] MCH (RBC) [Entitic mass] 26.4 pg Normal 26.0-34.[address] [facility] Comment on above: Order Comment: Speci men Type: BLOOD SPECIMEN [facility] Address: [address] [place] [address] Performed By: #### 2 4362-6 #### [facility] CLIA [id number] [address] [place] [address] [place] MCHC (RBC) [Mass/Vol] 31.7 g/dL Normal 30.5-36.0 [facility] Comment on above: Order Comment: Speci men Type: BLOOD SPECIMEN [facility] Address: [address] [place] [address] Performed By: #### 2 4362-6 #### [facility] CLIA [id number] [address] [place] [address] [place] MCV (RBC) [Entitic vol] 83.5 fL Normal 80.0-100.0 [facility] Comment on above: Order Comment: Speci men Type: BLOOD SPECIMEN [facility] Address: [address] [place] [address] Performed By: #### 2 4362-6 #### [facility] CLIA [id number] [id number] [address] [place] Nucleated RBC (Bld) [#/Vol] 10*3/uL Normal <0.[address] [facility] Comment on above: Order Comment: Speci men Type: BLOOD SPECIMEN [facility] Address: [address] [place] [address] Performed By: #### 2 4362-6 #### [facility] CLIA [id number] [address] [place] [address] [place] Platelet mean volume (Bld) [Entitic vol] 10.3 fL Normal 9.0-12.[address] [facility] Comment on above: Order Comment: Speci men Type: BLOOD SPECIMEN [facility] Facility[facility] Address: [address] [place] [address] Performed By: #### 2 4362-6 #### [facility] CLIA [id number] [address] [place] [address] [place] Platelets (Bld) [#/Vol] 345 10*3/uL Normal 150-[address] [facility] Comment on above: Order Comment: Speci men Type: BLOOD SPECIMEN [facility] Address: [address] [place] [address] Performed By: #### 2 4362-6 #### [facility] CLIA [id number] [address] [place] [address] [place] RBC (Bld) [#/Vol] 4.05 10*6/uL Normal 3.90-5.20 [facility] Comment on above: Order Comment: Speci men Type: BLOOD SPECIMEN [facility] Address: [address] [place] [address] Performed By: #### 2 4362-6 #### [facility] CLIA [id number] [address] [place] [address] [place] WBC (Bld) [#/Vol] 11.07 10*3/uL High 3.70-11.00 [facility] Comment on above: Order Comment: Speci men Type: BLOOD SPECIMEN [facility] Facility[facility] Address: [address] [place] [address] Performed By: #### 2 4362-6 #### [facility] CLIA [id number] [address] [place] [address] [place] Renal function 2000 panelon 07-14-2024 Albumin [Mass/Vol] 3.5 g/dL Low 3.9-4.9 [facility] Comment on above: Order Comment: Speci men Type: BLOOD SPECIMEN [facility] Address: [address] [place] [address] Performed By: #### 2 4362-6 #### [facility] CLIA [id number] [address] [place] [address] [place] Anion gap [Moles/Vol] 14 mmol/L Normal 8-15 [facility] Comment on above: Order Comment: Speci men Type: BLOOD SPECIMEN Ordering Facility[facility] Address: [address] [place] [address] Performed By: #### 2 4362-6 #### [facility] CLIA [id number] [address] [place] [address] [place] Calcium [Mass/Vol] 9.1 mg/dL Normal 8.5-10.2 [facility] Comment on above: Order Comment: Speci men Type: BLOOD SPECIMEN Ordering Facility: [facility] Address: [address] [place] [address] Performed By: #### 2 4362-6 #### [facility] CLIA [id number] [address] [place] [address] [place] Chloride [Moles/Vol] 98 mmol/L Normal 98-107 [facility] Comment on above: Order Comment: Speci men Type: BLOOD SPECIMEN [facility] Facility[facility] Address: [address] [place] [address] Performed By: #### 2 4362-6 #### [facility] CLIA [id number] [address] [place] [address] [place] CO2 [Moles/Vol] 22 mmol/L Normal 22-[address] [facility] Comment on above: Order Comment: Speci men Type: BLOOD SPECIMEN Ordering Facility: [facility] Address: [address] [place] [address] Performed By: #### 2 4362-6 #### [facility] CLIA [id number] [address] [place] [address] [place] Creatinine [Mass/Vol] 1.01 mg/dL High 0.58-0.96 [facility] Comment on above: Order Comment: Speci men Type: BLOOD SPECIMEN Ordering Facility: [facility] Address: [address] [place] [address] Performed By: #### 2 4362-6 #### [facility] CLIA [id number] [address] [place] [address] [place] Creatinine and Glomerular filtration rate.predicted panel (S/P/Bld) 55 mL/min/1.73m??? Low >=[address] [facility] Comment on above: Order Comment: Speci men Type: BLOOD SPECIMEN Ordering Facility: [facility] Address: [address] [place] [address] Result Comment: Isa mated Glomerular Filtration Rate [...] GFR. Performed By: #### 2 4362-6 #### [facility] CLIA [id number] [address] [place] [address] [place] Glucose [Mass/Vol] 131 mg/dL High 74-99 [facility] Comment on above: Order Comment: Speci men Type: BLOOD SPECIMEN Ordering Facility: [facility] Address: [address] [place], [place] [address] Result Comment: The [place] Diabetes Association (ADA) provides guidance for cutoff [...] Standards of Medical Care in Diabetes 2016, [place] [employer]. Diabetes Care. 2016.39(Suppl 1). Performed By: #### 2 4362-6 #### [facility] CLIA [id number] [address] [place] [address] [place] Phosphate [Mass/Vol] 3.5 mg/dL Normal 2.7-4.8 [facility] Comment on above: Order Comment: Speci men Type: BLOOD SPECIMEN Ordering Facility: [facility] Address: [address] [place] [address] Performed By: #### 2 4362-6 #### [facility] CLIA [id number] [address] [place] [address] [place] Potassium [Moles/Vol] 4.1 mmol/L Normal 3.7-5.1 [facility] Comment on above: Order Comment: Speci men Type: BLOOD SPECIMEN Ordering Facility: [facility] Address: [address] [place] [address] Performed By: #### 2 4362-6 #### [facility] CLIA [id number] [address] [place] [address] [place] Sodium [Moles/Vol] 134 mmol/L Low 136-144 [facility] Comment on above: Order Comment: Speci men Type: BLOOD SPECIMEN Ordering Facility: [facility] Address: [address] [place], [place] [address] Performed By: #### 2 4362-6 #### [facility] CLIA [id number] [address] [place] [address] [place] Urea nitrogen [Mass/Vol] 19 mg/dL Normal 7-[address] [facility] Comment on above: Order Comment: Speci men Type: BLOOD SPECIMEN Ordering Facility: [facility] Address: [address] [place] [address] Performed By: #### 2 4362-6 #### [facility] CLIA [id number] [address] [place] [address] [place] ANES POSTPROC EVALon 024 ANES POSTPROC EVAL HNO ID: [id number] Author: SIERRA FALK MD Service: ? Author Type: Anesthesiologist Type: Anesthesia Postprocedure Evaluation Filed: 07/13/2024 15:57 Note Text: POST ANESTHESIA EVALUATION NOTE : 1940 Procedure Summary Date: 07/13/24 Room / Location: [address] Anesthesia Start: 1222 Anesthesia Stop: 1337 [...] July 13, 2024 TIME: 3:57 PM CSN: [id number] Normal [facility] ANES PRE-OPon 07-13-2024 ANES PRE-OP HNO ID: [id number] Author: SIERRA FALK MD Service: ? Author Type: Anesthesiologist Type: Anesthesia Preprocedure Evaluation Filed: 07/13/2024 09:44 Note Text: ANESTHESIOLOGY DAY OF SURGERY NOTE : 1940 Procedure Information Date/Time: 07/13/241403 Procedure: ASPIRATION VITREOUS, CHOROIDAL FLUID, PARS PLANA APPROACH (Right: Eye) Location: [place] [address] / [facility] Surgeons: Savana Lopez MD Estimated [...] 0.5 tablets by mouth every 12 hours. wiqqvlwdjmr-dejxbhrtq-y ilanter (TRELEGY ELLIPTA) 100-62.5-25 mcg inhalation powder Inhale 1 Puff as instructed once daily. acetaminophen (TYLENOL) 325 mg tablet Take 2 tablets by mouth every 6 hours as needed for pain. ascorbic acid (more content not included)... Normal [facility]-13[facility]24 CASE MANAGEM HNO ID: [id number] Author: REBECA BELLE LSW Service: ? Author Type: Decorating Kiln Operator Type: Care Mgt Progress Note Filed: 07/13/2024 16:25 Note Text: CARE MANAGEMENT WEEKEND PLANNING NOTE NO WEEKEND DISCHARGE Disposition: [facility] Facility Anticipated Discharge Date: TBD CM followed up with pt's daughter for SNF choices. Pt is currently in the OR- unable to send referrals in careport or complete "edit note" side bar. 1)[facility] 2)[facility] 3)[facility] 4)[facility] 5)[facility] Will need accepting SNF and precert prior to dc. UPDATE 4:24pm: Referrals sent; awaiting response. Weekend Clin Application Specialist Pager #: Please see Treatment Team for Care Management Weekend/Holiday coverage. SIGNATURE: SHAQUILLE Nuñez PATIENT NAME: Mel Castillo DATE: July 13, 2024 TIME: 3:09 PM PAGER/CONTACT #: [phone] [facility] CBC panel Auto (Bld)on 07-13 Erythrocyte distribution width (RBC) [Ratio] 17.6 % High 11.5-15.[address] [facility] Comment on above: Order Comment: Speci men Type: BLOOD SPECIMENOrdering Facility: [facility] Address: [address] [place] [address] Performed By: #### 5 8410-2 ####[facility] [id number] [place] [address] [place] Hematocrit (Bld) [Volume fraction] 34.5 % Low 36.0-46.[address] [facility] Comment on above: Order Comment: Speci men Type: BLOOD SPECIMENOrdering Facility: [facility] Address: [address] [place] [address] Performed By: #### 5 8410-2 ####[facility] [id number] [place] [address] [place] Hemoglobin (Bld) [Mass/Vol] 10.8 g/dL Low 11.5-15.[address] [facility] Comment on above: Order Comment: Speci men Type: BLOOD SPECIMENOrdering Facility: [facility] Address: [address] [place] [address] Performed By: #### 5 8410-2 ####[facility] [id number] [place] [address] [place] MCH (RBC) [Entitic mass] 26.1 pg Normal 26.0-34.[address] [facility] Comment on above: Order Comment: Speci men Type: BLOOD SPECIMENOrdering Facility: [facility] Address: [address] [place] [address] Performed By: #### 5 8410-2 ####[facility] [id number] [place] [address] [place] MCHC (RBC) [Mass/Vol] 31.3 g/dL Normal 30.5-36.0 [facility] Comment on above: Order Comment: Speci men Type: BLOOD SPECIMENOrdering Facility: [facility] Address: [address] [place] [address] Performed By: #### 5 8410-2 ####[facility]IA [id number] [place] [address] [place] MCV (RBC) [Entitic vol] 83.3 fL Normal 80.0-100.0 [facility] Comment on above: Order Comment: Speci men Type: BLOOD SPECIMENOrdering Facility: [facility] Address: [address] [place] [address] Performed By: #### 5 8410-2 ####[facility]IA [id number] [place] [address] [place] Nucleated RBC (Bld) [#/Vol] 10*3/uL Normal <0.[address] [facility] Comment on above: Order Comment: Speci men Type: BLOOD SPECIMENOrdering Facility: [facility] Address: [address] [place] [address] Performed By: #### 5 8410-2 ####[facility]IA [id number] [place] [address] [place] Platelet mean volume (Bld) [Entitic vol] 9.7 fL Normal 9.0-12.[address] [facility] Comment on above: Order Comment: Speci men Type: BLOOD SPECIMENOrdering Facility: [facility] Address: [address] [place] [address] Performed By: #### 5 8410-2 ####[facility]IA [id number] [place] [address] [place] Platelets (Bld) [#/Vol] 334 10*3/uL Normal 150-[address] [facility] Comment on above: Order Comment: Speci men Type: BLOOD SPECIMENOrdering Facility: [facility] Address: [address] [place] [address] Performed By: #### 5 8410-2 ####[facility]IA [id number] [place] [address] [place] RBC (Bld) [#/Vol] 4.14 10*6/uL Normal 3.90-5.20 [facility] Comment on above: Order Comment: Speci men Type: BLOOD SPECIMENOrdering Facility: [facility] Address: [address] [place] [address] Performed By: #### 5 8410-2 ####[facility]IA [id number] [place] [address] [place] WBC (Bld) [#/Vol] 10.74 10*3/uL Normal 3.70-11.00 [facility] Comment on above: Order Comment: Speci men Type: BLOOD SPECIMENOrdering Facility: [facility] Address: [address] [place] [address] Performed By: #### 5 8410-2 ####[facility]IA [id number] [place] [address] [place] ECHO WITH AGITATED SALINE CO NTRASTon 07-13-2024 ECHO WITH AGITATED SALINE CONTRAST Echocardiography Report: Transthoracic Echo [facility] Bedside Date of service: 07/13/2024 3:54:27 PM [employer] ROBOTICIST Ordering physician: FELICIA LEVY Indication: Limited KYLE [...] * * Final * * * CC [employer] : [id number] Normal [facility] NUTRITIONon 07-13-2024 NUTRITION HNO ID: [id number] Author: PAWAN PRESLEY DTR Service: Nutrition Therapy Author Type: Swing Ride Operator Type: Nutrition Filed: 07/13/2024 11:50 Note Text: NUTRITION THERAPY DIVINITY PROFESSOR NOTE SERVICE DATE: 07/13/2024 SERVICE TIME: 1045 [...] TIME: 11:49 AM Normal [facility] OPERATIVE NOon 07-13-2024 OPERATIVE NO HNO ID: [id number] Author: SAVANA LOPEZ MD Service: Ophthalmology Author Type: Physician Type: Operative Report Filed: 07/13/2024 13:32 Note Text: [place] [address] [place] [facility] OPERATIVE REPORT LOG ID: [id number] Surgery/Procedure Date: 07/13/2024 Incision/Procedure Start Time: 12:43 PM Incision Close/Procedure End Time: 1:32 PM NAME: Mel Pop [facility] #: [id number] SURGEON(S) AND BENCH LAY OUT TECHNICIAN(S): Surgeons and Role: * Savana Lopez MD [...] MD Vitreoretinal Surgery AND Ocular Inflammatory Diseases [facility] Normal [facility] Renal function 2000 panelon 07-13-2024 Albumin [Mass/Vol] 3.5 g/dL Low 3.9-4.9 [facility] Comment on above: Order Comment: Speci men Type: BLOOD SPECIMENOrdering Facility: [facility] Address: [address] [place] [address] Performed By: #### 2 4362-6 ####[facility]CLIA [id number] [place] [address] [place] Anion gap [Moles/Vol] 10 mmol/L Normal 8-15 [facility] Comment on above: Order Comment: Speci men Type: BLOOD SPECIMENOrdering Facility: [facility] Address: [address] [place] [id number] Performed By: #### 2 4362-6 ####[facility]CLIA [id number] [place] [address] [place] Calcium [Mass/Vol] 9.3 mg/dL Normal 8.5-10.2 [facility] Comment on above: Order Comment: Speci men Type: BLOOD SPECIMENOrdering Facility: [facility] Address: [address] [place] [address] Performed By: #### 2 4362-6 ####[facility]CLIA [id number] [place] [address] [place] Chloride [Moles/Vol] 100 mmol/L Normal 98-107 [facility] Comment on above: Order Comment: Speci men Type: BLOOD SPECIMENOrdering Facility: [facility] Address: [address] [place] [address] Performed By: #### 2 4362-6 ####[facility]CLIA [id number] [place] [address] [place] CO2 [Moles/Vol] 27 mmol/L Normal 22-[address] [facility] Comment on above: Order Comment: Speci men Type: BLOOD SPECIMENOrdering Facility: [facility] Address: [address] [place], [place] [address] Performed By: #### 2 4362-6 ####[facility]CLIA [id number] [place] [id number] [place] Creatinine [Mass/Vol] 0.92 mg/dL Normal 0.58-0.96 [facility] Comment on above: Order Comment: Speci men Type: BLOOD SPECIMENOrdering Facility: [facility] Address: [address] [place], [place] [address] Performed By: #### 2 4362-6 ####[facility]CLIA [id number] [place] [id number] [place] Creatinine and Glomerular filtration rate.predicted panel (S/P/Bld) 62 mL/min/1.73m??? Normal >=[address] [facility] Comment on above: Order Comment: Rhina mason Type: BLOOD SPECIMENOrdering Facility: [facility] Address: [address] [place] [address] Result Comment: Isa mated Glomerular Filtration Rate [...] actual GFR. Performed By: #### 2 4362-6 ####[facility]CLIA [id number] [place] [address] [place] Glucose [Mass/Vol] 103 mg/dL High 74-99 [facility] Comment on above: Order Comment: Rhina mason Type: BLOOD SPECIMENOrdering Facility: [facility] Address: [address] [place] [address] Result Comment: The [place] Diabetes Association (ADA) provides guidance for cutoff [...] Standards of Medical Care in Diabetes 2016, [place] [employer]. Diabetes Care. 2016.39(Suppl 1). Performed By: #### 2 4362-6 ####[facility]CLIA [id number] [place] [address] [place] Phosphate [Mass/Vol] 3.5 mg/dL Normal 2.7-4.8 [facility] Comment on above: Order Comment: Speci men Type: BLOOD SPECIMENOrdering Facility: [facility] Address: [address] [place] [address] Performed By: #### 2 4362-6 ####[facility]CLIA [id number] [place] [address] [place] Potassium [Moles/Vol] 4.2 mmol/L Normal 3.7-5.1 [facility] Comment on above: Order Comment: Speci men Type: BLOOD SPECIMENOrdering Facility: [facility] Address: [address] [place] [address] Performed By: #### 2 4362-6 ####[facility]CLIA [id number] [place] [address] [place] Sodium [Moles/Vol] 137 mmol/L Normal 136-144 [facility] Comment on above: Order Comment: Speci men Type: BLOOD SPECIMENOrdering Facility: [facility] Address: [address] [place] [address] Performed By: #### 2 4362-6 ####[facility]CLIA [id number] [place] [address] [place] Urea nitrogen [Mass/Vol] 12 mg/dL Normal 7-[address] [facility] Comment on above: Order Comment: Speci men Type: BLOOD SPECIMENOrdering Facility: [facility] Address: [address] [place] [address] Performed By: #### 2 4362-6 ####[facility]CLIA [id number] [place] [address] [place] BSCAN OD (RIGHT EYE)on 07-12 [facility] Radiology Study observation (narrative) [facility] CBC panel Auto (Bld)on 07-12 Erythrocyte distribution width (RBC) [Ratio] 17.8 % High 11.5-15.[address] [facility] Comment on above: Order Comment: Speci men Type: BLOOD SPECIMENOrdering Facility: [facility] Address: [address] [place] [address] Performed By: #### 5 8410-2 ####[facility]IA [id number] [place] [address] [place] Hematocrit (Bld) [Volume fraction] 34.7 % Low 36.0-46.[address] [facility] Comment on above: Order Comment: Speci men Type: BLOOD SPECIMENOrdering Facility: [facility] Address: [address] [place] [address] Performed By: #### 5 8410-2 ####[facility]IA [id number] [place] [address] [place] Hemoglobin (Bld) [Mass/Vol] 10.6 g/dL Low 11.5-15.[address] [facility] Comment on above: Order Comment: Speci men Type: BLOOD SPECIMENOrdering Facility: [facility] Address: [address] [place] [address] Performed By: #### 5 8410-2 ####[facility]IA [id number] [place] [address] [place] MCH (RBC) [Entitic mass] 26.4 pg Normal 26.0-34.[address] [facility] Comment on above: Order Comment: Speci men Type: BLOOD SPECIMENOrdering Facility: [facility] Address: [address] [place] [address] Performed By: #### 5 8410-2 ####[facility]IA [id number] [place] [address] [place] MCHC (RBC) [Mass/Vol] 30.5 g/dL Normal 30.5-36.0 [facility] Comment on above: Order Comment: Speci men Type: BLOOD SPECIMENOrdering Facility: [facility] Address: [address] [place] [address] Performed By: #### 5 8410-2 ####[facility] LABCLIA [id number] [place] [address] [place] MCV (RBC) [Entitic vol] 86.3 fL Normal 80.0-100.0 [facility] Comment on above: Order Comment: Speci men Type: BLOOD SPECIMENOrdering Facility: [facility] Address: [address] [place] [address] Performed By: #### 5 8410-2 ####[facility]IA [id number] [place] [address] [place] Nucleated RBC (Bld) [#/Vol] 10*3/uL Normal <0.[address] [facility] Comment on above: Order Comment: Speci men Type: BLOOD SPECIMENOrdering Facility: [facility] Address: [address] [place] [address] Performed By: #### 5 8410-2 ####[facility]IA [id number] [place] [address] [place] Platelet mean volume (Bld) [Entitic vol] 9.9 fL Normal 9.0-12.[address] [facility] Comment on above: Order Comment: Speci men Type: BLOOD SPECIMENOrdering Facility: [facility] Address: [address] [place] [address] Performed By: #### 5 8410-2 ####[facility]IA [id number] [place] [address] [place] Platelets (Bld) [#/Vol] 301 10*3/uL Normal 150-[address] [facility] Comment on above: Order Comment: Speci men Type: BLOOD SPECIMENOrdering Facility: [facility] Address: [address] [place] [address] Performed By: #### 5 8410-2 ####[facility]IA [id number] [place] [address] [place] RBC (Bld) [#/Vol] 4.02 10*6/uL Normal 3.90-5.20 [facility] Comment on above: Order Comment: Speci men Type: BLOOD SPECIMENOrdering Facility: [facility] Address: [address] [place] [address] Performed By: #### 5 8410-2 ####[facility] LABCLIA [id number] [place] [address] [place] WBC (Bld) [#/Vol] 10.07 10*3/uL Normal 3.70-11.00 [facility] Comment on above: Order Comment: Speci men Type: BLOOD SPECIMENOrdering Facility: [facility] Address: [address] [place] [address] Performed By: #### 5 8410-2 ####[facility] LABCLIA [id number] [place] [address] [place] PT EDon 07-12-2024 PT ED HNO ID: [id number] Author: GISSELL POPE RPh Service: Pharmacy Author [...] inpatient anticoagulant education. Gissell Pope RPh Normal [facility] Renal function 2000 panelon 07-12-2024 Albumin [Mass/Vol] 3.4 g/dL Low 3.9-4.9 [facility] Comment on above: Order Comment: Speci men Type: BLOOD SPECIMENOrdering Facility: [facility] Address: [address] [place], [place] [address] Performed By: #### 2 4362-6 ####[facility] LABCLIA [id number] [address] [address] [place] Anion gap [Moles/Vol] 14 mmol/L Normal 8-15 [facility] Comment on above: Order Comment: Speci men Type: BLOOD SPECIMENOrdering Facility: [facility] Address: [address] [place], [place] [address] Performed By: #### 2 4362-6 ####[facility] LABCLIA [id number] [place] [address] [place] Calcium [Mass/Vol] 9.3 mg/dL Normal 8.5-10.2 [facility] Comment on above: Order Comment: Speci men Type: BLOOD SPECIMENOrdering Facility: [facility] Address: [address] [place], [place] [address] Performed By: #### 2 4362-6 ####[facility] LABCLIA [id number] [place] [address] [place] Chloride [Moles/Vol] 101 mmol/L Normal 98-107 [facility] Comment on above: Order Comment: Speci men Type: BLOOD SPECIMENOrdering Facility: [facility] Address: [address] [place], [place] [address] Performed By: #### 2 4362-6 ####[facility] LABCLIA [id number] [place] [id number] [place] CO2 [Moles/Vol] 21 mmol/L Low 22-[address] [facility] Comment on above: Order Comment: Speci men Type: BLOOD SPECIMENOrdering Facility: [facility] Address: [address] [place], [place] [address] Performed By: #### 2 4362-6 ####[facility] LABCLIA [id number] [place] [address] [place] Creatinine [Mass/Vol] 0.81 mg/dL Normal 0.58-0.96 [facility] Comment on above: Order Comment: Rhina mason Type: BLOOD SPECIMENOrdering Facility: [facility] Address: [address] [place] [address] Performed By: #### 2 4362-6 ####[facility] LABIA [id number] [place] [address] [place] Creatinine and Glomerular filtration rate.predicted panel (S/P/Bld) 72 mL/min/1.73m??? Normal >=[address] [facility] Comment on above: Order Comment: Rhina mason Type: BLOOD SPECIMENOrdering Facility: [facility] Address: [address] [place] [address] Result Comment: Isa mated Glomerular Filtration Rate [...] actual GFR. Performed By: #### 2 4362-6 ####[facility] LABIA [id number] [place] [address] [place] Glucose [Mass/Vol] 100 mg/dL High 74-99 [facility] Comment on above: Order Comment: Rhina mason Type: BLOOD SPECIMENOrdering Facility: [facility] Address: [address] [place] [address] Result Comment: The [place] [employer] (ADA) provides guidance for cutoff [...] Standards of Medical Care in Diabetes 2016, [place] [employer]. Diabetes Care. 2016.39(Suppl 1). Performed By: #### 2 4362-6 ####[facility] LABCLIA [id number] [place] [address] [place] Phosphate [Mass/Vol] 2.7 mg/dL Normal 2.7-4.8 [facility] Comment on above: Order Comment: Speci men Type: BLOOD SPECIMENOrdering Facility: [facility] Address: [address] [place] [address] Performed By: #### 2 4362-6 ####[facility] LABIA [id number] [place] [address] [place] Potassium [Moles/Vol] 4.0 mmol/L Normal 3.7-5.1 [facility] Comment on above: Order Comment: Speci men Type: BLOOD SPECIMENOrdering Facility: [facility] Address: [address] [place] [address] Performed By: #### 2 4362-6 ####[facility] LABIA [id number] [place] [address] [place] Sodium [Moles/Vol] 136 mmol/L Normal 136-144 [facility] Comment on above: Order Comment: Speci men Type: BLOOD SPECIMENOrdering Facility: [facility] Address: [address] [place] [address] Performed By: #### 2 4362-6 ####[facility] LABIA [id number] [place] [id number] [place] Urea nitrogen [Mass/Vol] 12 mg/dL Normal 7-[address] [facility] Comment on above: Order Comment: Speci men Type: BLOOD SPECIMENOrdering Facility: [facility] Address: [address] [place] [address] Performed By: #### 2 4362-6 ####[facility] LABCLIA [id number] [place] [address] [place] Right eye Photo documentatio non 07-12-2024 [facility] Radiology Study observation (narrative) Amarjit chaudhry [facility] THERAPY NTon 07-12-2024 THERAPY NT HNO ID: [id number] Author: RYANN GUZMÁN OT/L Service: Occupational Therapy Author Type: Occupational Therapist Type: Therapy (PT/OT/Speech/Resp) Filed: 07/12/2024 12:26 Note Text: OCCUPATIONAL THERAPY MISSED VISIT SERVICE DATE: 07/12/2024 SERVICE TIME: 1226 ROOM: [place] [address] ([facility] OPHTHALMOLOGY) Patient not seen due to Test / Procedure. SIGNATURE: JUANY Willett PATIENT NAME: Mel Castillo DATE: July 12, 2024 TIME: 12:26 PM Normal [facility] CBC panel Auto (Bld)on 07-11 Erythrocyte distribution width (RBC) [Ratio] 17.6 % High 11.5-15.[address] [facility] Comment on above: Order Comment: Speci men Type: BLOOD SPECIMEN [facility] Address: [address] [place] [address] Performed By: #### 5 8410-2 #### [facility] CLIA [id number] [address] [place] [address] [place] Hematocrit (Bld) [Volume fraction] 32.3 % Low 36.0-46.[address] [facility] Comment on above: Order Comment: Speci men Type: BLOOD SPECIMEN [facility] Address: [address] [place] [address] Performed By: #### 5 8410-2 #### [facility] CLIA [id number] [address] [place] [address] [place] Hemoglobin (Bld) [Mass/Vol] 10.5 g/dL Low 11.5-15.[address] [facility] Comment on above: Order Comment: Speci men Type: BLOOD SPECIMEN [facility] Address: [address] [place] [address] Performed By: #### 5 8410-2 #### [facility] CLIA [id number] [address] [place] [address] [place] MCH (RBC) [Entitic mass] 27.0 pg Normal 26.0-34.[address] [facility] Comment on above: Order Comment: Speci men Type: BLOOD SPECIMEN [facility] Address: [address] [place] [address] Performed By: #### 5 8410-2 #### [facility] CLIA [id number] [address] [place] [address] [place] MCHC (RBC) [Mass/Vol] 32.5 g/dL Normal 30.5-36.0 [facility] Comment on above: Order Comment: Speci men Type: BLOOD SPECIMEN [facility] Address: [address] [place] [address] Performed By: #### 5 8410-2 #### [facility] CLIA [id number] [address] [place] [address] [place] MCV (RBC) [Entitic vol] 83.0 fL Normal 80.0-100.0 [facility] Comment on above: Order Comment: Speci men Type: BLOOD SPECIMEN [facility] Address: [address] [place] [address] Performed By: #### 5 8410-2 #### [facility] CLIA [id number] [address] [place] [address] [place] Nucleated RBC (Bld) [#/Vol] 10*3/uL Normal <0.[address] [facility] Comment on above: Order Comment: Speci men Type: BLOOD SPECIMEN [facility] Address: [address] [place] [address] Performed By: #### 5 8410-2 #### [facility] CLIA [id number] [address] [place], [place] [id number] [place] Platelet mean volume (Bld) [Entitic vol] 9.9 fL Normal 9.0-12.[address] [facility] Comment on above: Order Comment: Speci men Type: BLOOD SPECIMEN [facility] Address: [address] [place] [address] Performed By: #### 5 8410-2 #### [facility] CLIA [id number] [address] [place] [address] [place] Platelets (Bld) [#/Vol] 289 10*3/uL Normal 150-[address] [facility] Comment on above: Order Comment: Speci men Type: BLOOD SPECIMEN [facility] Address: [address] [place] [address] Performed By: #### 5 8410-2 #### [facility] CLIA [id number] [address] [place] [address] [place] RBC (Bld) [#/Vol] 3.89 10*6/uL Low 3.90-5.20 [facility] Comment on above: Order Comment: Speci men Type: BLOOD SPECIMEN [facility] Address: [address] [place] [address] Performed By: #### 5 8410-2 #### [facility] CLIA [id number] [address] [place], [place] [address] [place] WBC (Bld) [#/Vol] 8.32 10*3/uL Normal 3.70-11.00 [facility] Comment on above: Order Comment: Speci men Type: BLOOD SPECIMEN [facility] Address: [address] [place] [address] Performed By: #### 5 8410-2 #### [facility] CLIA [id number] [address] [place], [place] [address] [place] Renal function 2000 panelon 07-11-2024 Albumin [Mass/Vol] 3.4 g/dL Low 3.9-4.9 [facility] Comment on above: Order Comment: Speci men Type: BLOOD SPECIMENOrdering Facility: [facility] Address: [address] [place] [address] Performed By: #### 2 4362-6 ####[facility] LABCLIA [id number] [place] [address] [place] Anion gap [Moles/Vol] 11 mmol/L Normal 8-15 [facility] Comment on above: Order Comment: Speci men Type: BLOOD SPECIMENOrdering Facility: [facility] Address: [address] [place] [address] Performed By: #### 2 4362-6 ####[facility] LABCLIA [id number] [place] [address] [place] Calcium [Mass/Vol] 8.9 mg/dL Normal 8.5-10.2 [facility] Comment on above: Order Comment: Speci men Type: BLOOD SPECIMENOrdering Facility: [facility] Address: [address] [place] [address] Performed By: #### 2 4362-6 ####[facility] LABCLIA [id number] [place] [address] [place] Chloride [Moles/Vol] 103 mmol/L Normal 98-107 [facility] Comment on above: Order Comment: Speci men Type: BLOOD SPECIMENOrdering Facility: [facility] Address: [address] [place] [id number] Performed By: #### 2 4362-6 ####[facility] LABCLIA [id number] [place] [address] [place] CO2 [Moles/Vol] 23 mmol/L Normal 22-[address] [facility] Comment on above: Order Comment: Speci men Type: BLOOD SPECIMENOrdering Facility: [facility] Address: [address] [place] [address] Performed By: #### 2 4362-6 ####[facility] LABIA [id number] [address] STATES OF [facility] Creatinine [Mass/Vol] 0.91 mg/dL Normal 0.58-0.96 [facility] Comment on above: Order Comment: Rhina men Type: BLOOD SPECIMENOrdering Facility: [facility] Address: [address] [place] [address] Performed By: #### 2 4362-6 ####[facility] LABIA [id number] [address] STATES OF [facility] Creatinine and Glomerular filtration rate.predicted panel (S/P/Bld) 62 mL/min/1.73m??? Normal >=[address] [facility] Comment on above: Order Comment: Rhina mason Type: BLOOD SPECIMENOrdering Facility: [facility] Address: [address] [place] [address] Result Comment: Isa mated Glomerular Filtration Rate [...] actual GFR. Performed By: #### 2 4362-6 ####[facility] LABIA [id number] [place] [address] [place] Glucose [Mass/Vol] 98 mg/dL Normal 74-99 [facility] Comment on above: Order Comment: Rhina men Type: BLOOD SPECIMENOrdering Facility: [facility] Address: [address] [place] [address] Result Comment: The [place] Diabetes Association (ADA) provides guidance for cutoff [...] Standards of Medical Care in Diabetes 2016, [place] [employer]. Diabetes Care. 2016.39(Suppl 1). Performed By: #### 2 4362-6 ####[facility] LABCLIA [id number] [place] [address] [place] Phosphate [Mass/Vol] 2.8 mg/dL Normal 2.7-4.8 [facility] Comment on above: Order Comment: Speci men Type: BLOOD SPECIMENOrdering Facility: [facility] Address: [address] [place] [address] Performed By: #### 2 4362-6 ####[facility] LABIA [id number] [place] [address] [place] Potassium [Moles/Vol] 3.6 mmol/L Low 3.7-5.1 [facility] Comment on above: Order Comment: Speci men Type: BLOOD SPECIMENOrdering Facility: [facility] Address: [address] [place] [address] Performed By: #### 2 4362-6 ####[facility] LABIA [id number] [place] [address] [place] Sodium [Moles/Vol] 137 mmol/L Normal 136-144 [facility] Comment on above: Order Comment: Speci men Type: BLOOD SPECIMENOrdering Facility: [facility] Address: [address] [place] [address] Performed By: #### 2 4362-6 ####[facility] LABIA [id number] [place] [address] [place] Urea nitrogen [Mass/Vol] 15 mg/dL Normal 7-[address] [facility] Comment on above: Order Comment: Rhina mason Type: BLOOD SPECIMENOrdering Facility: [facility] Address: [address] [place] [address] Performed By: #### 2 4362-6 ####[facility] LABCLIA [id number] [facility] [place] [id number] [place] CASE MANAGEMon 07-10-2024 CASE MANAGEM HNO ID: [id number] Author: TREY HUGHES LSW Service: Social Work Author Type: Decorating Kiln Operator Type: Care Mgt Progress Note Filed: 07/10/2024 14:42 Note Text: CARE MANAGEMENT PROGRESS NOTE SERVICE DATE: 07/10/2024 SERVICE TIME: 2:38 PM LOS: 3 days Post-Acute Discharge Planning Patient Goal(s): Increase strength [place] Explained: [place] Given: Yes Post-Acute Discharge Plan: [...] TIME: 2:38 PM Normal [facility] CBC panel Auto (Bld)on 07-10 Erythrocyte distribution width (RBC) [Ratio] 17.5 % High 11.5-15.[address] [facility] Comment on above: Order Comment: Rhina mason Type: BLOOD SPECIMEN Ordering Facility: [facility] Address: [address] [place] [address] Performed By: #### 2 276-4 #### [facility] CLIA [id number] [address] [place] [address] [place] Hematocrit (Bld) [Volume fraction] 31.7 % Low 36.0-46.[address] [facility] Comment on above: Order Comment: Rhina mason Type: BLOOD SPECIMEN Ordering Facility: [facility] Address: [address] [place] [address] Performed By: #### 2 276-4 #### [facility] CLIA [id number] [address] [place] [address] [place] Hemoglobin (Bld) [Mass/Vol] 9.9 g/dL Low 11.5-15.[address] [facility] Comment on above: Order Comment: Speci men Type: BLOOD SPECIMEN Ordering Facility: [facility] Address: [address] [place] [address] Performed By: #### 2 276-4 #### [facility] CLIA [id number] [address] [place] [address] [place] MCH (RBC) [Entitic mass] 26.0 pg Normal 26.0-34.[address] [facility] Comment on above: Order Comment: Speci men Type: BLOOD SPECIMEN Ordering Facility: [facility] Address: [address] [place] [address] Performed By: #### 2 276-4 #### [facility] CLIA [id number] [address] [place] [address] [place] MCHC (RBC) [Mass/Vol] 31.2 g/dL Normal 30.5-36.0 [facility] Comment on above: Order Comment: Speci men Type: BLOOD SPECIMEN Ordering Facility: [facility] Address: [address] [place] [address] Performed By: #### 2 276-4 #### [facility] CLIA [id number] [address] [place] [address] [place] MCV (RBC) [Entitic vol] 83.2 fL Normal 80.0-100.0 [facility] Comment on above: Order Comment: Speci men Type: BLOOD SPECIMEN Ordering Facility: [facility] Address: [address] [place] [address] Performed By: #### 2 276-4 #### [facility] CLIA [id number] [address] [place] [address] [place] Nucleated RBC (Bld) [#/Vol] 10*3/uL Normal <0.[address] [facility] Comment on above: Order Comment: Speci men Type: BLOOD SPECIMEN Ordering Facility: [facility] Address: [address] [place] [address] Performed By: #### 2 276-4 #### [facility] CLIA [id number] [address] [place] [address] [place] Platelet mean volume (Bld) [Entitic vol] 10.3 fL Normal 9.0-12.[address] [facility] Comment on above: Order Comment: Speci men Type: BLOOD SPECIMEN Ordering Facility: [facility] Address: [address] [place] [address] Performed By: #### 2 276-4 #### [facility] CLIA [id number] [address] [place] [address] [place] Platelets (Bld) [#/Vol] 336 10*3/uL Normal 150-[address] [facility] Comment on above: Order Comment: Speci men Type: BLOOD SPECIMEN Ordering Facility: [facility] Address: [address] [place] [address] Performed By: #### 2 276-4 #### [facility] CLIA [id number] [address] [place] [address] [place] RBC (Bld) [#/Vol] 3.81 10*6/uL Low 3.90-5.20 [facility] Comment on above: Order Comment: Speci men Type: BLOOD SPECIMEN Ordering Facility: [facility] Address: [address] [place] [address] Performed By: #### 2 276-4 #### [facility] CLIA [id number] [address] [place] [address] [place] WBC (Bld) [#/Vol] 6.35 10*3/uL Normal 3.70-11.00 [facility] Comment on above: Order Comment: Speci men Type: BLOOD SPECIMEN Ordering Facility: [facility] Address: [address] [place] [address] Performed By: #### 2 276-4 #### [facility] CLIA [id number] [address] [place] [address] [place] Renal function 2000 panelon 07-10-2024 Albumin [Mass/Vol] 3.5 g/dL Low 3.9-4.9 [facility] Comment on above: Order Comment: Speci men Type: BLOOD SPECIMEN [facility] Address: [address] [place] [address] Performed By: #### 2 4362-6 #### [facility] CLIA [id number] [address] [place] [address] [place] Anion gap [Moles/Vol] 12 mmol/L Normal 8-15 [facility] Comment on above: Order Comment: Speci men Type: BLOOD SPECIMEN [facility] Address: [address] [place] [address] Performed By: #### 2 4362-6 #### [facility] CLIA [id number] [address] [place] [address] [place] Calcium [Mass/Vol] 9.0 mg/dL Normal 8.5-10.2 [facility] Comment on above: Order Comment: Speci men Type: BLOOD SPECIMEN [facility] Address: [address] [place] [address] Performed By: #### 2 4362-6 #### [facility] CLIA [id number] [address] [place] [address] [place] Chloride [Moles/Vol] 104 mmol/L Normal 98-107 [facility] Comment on above: Order Comment: Speci men Type: BLOOD SPECIMEN [facility] Address: [address] [place] [address] Performed By: #### 2 4362-6 #### [facility] CLIA [id number] [address] [place] [address] [place] CO2 [Moles/Vol] 22 mmol/L Normal 22-[address] [facility] Comment on above: Order Comment: Speci men Type: BLOOD SPECIMEN [facility] Address: [address] [place] [address] Performed By: #### 2 4362-6 #### [facility] CLIA [id number] [address] [place] [address] [place] Creatinine [Mass/Vol] 0.93 mg/dL Normal 0.58-0.96 [facility] Comment on above: Order Comment: Speci men Type: BLOOD SPECIMEN [facility] Address: [address] [place] [address] Performed By: #### 2 4362-6 #### [facility] CLIA [id number] [address] [place] [address] [place] Creatinine and Glomerular filtration rate.predicted panel (S/P/Bld) 61 mL/min/1.73m??? Normal >=[address] [facility] Comment on above: Order Comment: Speci men Type: BLOOD SPECIMEN [facility] Address: [address] [place] [address] Result Comment: Isa mated Glomerular Filtration Rate [...] GFR. Performed By: #### 2 4362-6 #### [facility] CLIA [id number] [address] [place] [address] [place] Glucose [Mass/Vol] 102 mg/dL High 74-99 [facility] Comment on above: Order Comment: Speci men Type: BLOOD SPECIMEN [facility] Address: [address] [place] [address] Result Comment: The [place] Diabetes Association (ADA) provides guidance for cutoff [...] Standards of Medical Care in Diabetes 2016, [place] [employer]. Diabetes Care. 2016.39(Suppl 1). Performed By: #### 2 4362-6 #### [facility] CLIA [id number] [address] [place] [address] [place] Phosphate [Mass/Vol] 2.6 mg/dL Low 2.7-4.8 [facility] Comment on above: Order Comment: Speci men Type: BLOOD SPECIMEN [facility] Address: [address] [place] [address] Performed By: #### 2 4362-6 #### [facility] CLIA [id number] [address] [place] [address] [place] Potassium [Moles/Vol] 3.9 mmol/L Normal 3.7-5.1 [facility] Comment on above: Order Comment: Speci men Type: BLOOD SPECIMEN [facility] Address: [address] [place] [address] Performed By: #### 2 4362-6 #### [facility] CLIA [id number] [address] [place] [address] [place] Sodium [Moles/Vol] 138 mmol/L Normal 136-144 [facility] Comment on above: Order Comment: Speci men Type: BLOOD SPECIMEN [facility] Address: [address] [place] [address] Performed By: #### 2 4362-6 #### [facility] CLIA [id number] [address] [place] [address] [place] Urea nitrogen [Mass/Vol] 21 mg/dL Normal 7-[address] [facility] Comment on above: Order Comment: Speci men Type: BLOOD SPECIMEN [facility] Address: [address] [place] [address] Performed By: #### 2 4362-6 #### [facility] CLIA [id number] [address] [place] [address] [place] THERAPY NTon 07-10-2024 THERAPY NT HNO ID: [id number] Author: SANTIAGO GUZMAN OT/L Service: Occupational Therapy Author Type: Occupational Therapist Type: Therapy (PT/OT/Speech/Resp) Filed: 07/10/2024 10:00 Note Text: Occupational Therapy Evaluation Summary SERVICE DATE: 07/10/2024 SERVICE TIME: 0840 to 0920 ROOM: [place] [address] OT 6 Clicks Score: 15 DISCHARGE RECOMMENDATIONS [...] "shadows" and occasionally the color while / 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 SNF rec at this time pending [...] (generalized) TREATMENT INTERVENTIONS Evaluation, Self Half-Way Management (33429) Timed Code Treatment (minutes): 25 Skilled Treatment [...] Sit to Stand, Standing Balance to Improve [place] with ADLs/Self-Care, Sitting Balance to Improve [place] with ADLs/Self-Care, Life Roles/Routines/Habits THERAPEUTIC SKILLS USED Therapeutic Use of Self, Physical Assist, Movement Facilitation, Management of Critical Lines, Tubes and/or Drains FUNCTIONAL STATUS Activities of Daily Living Assist Level Additional Information Feeding Minimal Assistance Grooming Moderate Assistance Bathing Upper Body Minimal Assistance Bathing Lower Body Ma (more content not included)... Normal [facility] CBC panel Auto (Bld)on 07-09 Erythrocyte distribution width (RBC) [Ratio] 17.7 % High 11.5-15.[address] [facility] Comment on above: Order Comment: Rhina mason Type: BLOOD SPECIMEN [facility] Address: [address] [place] [address] Performed By: #### 2 4362-6 #### [facility] CLIA [id number] [address] [place] [address] [place] Hematocrit (Bld) [Volume fraction] 33.9 % Low 36.0-46.[address] [facility] Comment on above: Order Comment: Rhina mason Type: BLOOD SPECIMEN [facility] Address: [address] [place] [address] Performed By: #### 2 4362-6 #### [facility] CLIA [id number] [address] [place] [address] [place] Hemoglobin (Bld) [Mass/Vol] 10.5 g/dL Low 11.5-15.[address] [facility] Comment on above: Order Comment: Samiri isabella Type: BLOOD SPECIMEN [facility] Address: [address] [place] [place] [address] Performed By: #### 2 4362-6 #### [facility] CLIA [id number] [address] [place] [address] [place] MCH (RBC) [Entitic mass] 26.6 pg Normal 26.0-34.[address] [facility] Comment on above: Order Comment: Speci men Type: BLOOD SPECIMEN Ordering Facility: [facility] Address: [address] [place] [address] Performed By: #### 2 4362-6 #### [facility] CLIA [id number] [address] [place] [address] [place] MCHC (RBC) [Mass/Vol] 31.0 g/dL Normal 30.5-36.0 [facility] Comment on above: Order Comment: Speci men Type: BLOOD SPECIMEN Ordering Facility: [facility] Address: [address] [place] [address] Performed By: #### 2 4362-6 #### [facility] CLIA [id number] [address] [place] [address] [place] MCV (RBC) [Entitic vol] 86.0 fL Normal 80.0-100.0 [facility] Comment on above: Order Comment: Speci men Type: BLOOD SPECIMEN Ordering Facility: [facility] Address: [address] [place] [address] Performed By: #### 2 4362-6 #### [facility] CLIA [id number] [address] [place] [address] [place] Nucleated RBC (Bld) [#/Vol] 10*3/uL Normal <0.[address] [facility] Comment on above: Order Comment: Speci men Type: BLOOD SPECIMEN Ordering Facility: [facility] Address: [address] [place] [address] Performed By: #### 2 4362-6 #### [facility] CLIA [id number] [address] [place] [address] [place] Platelet mean volume (Bld) [Entitic vol] 10.4 fL Normal 9.0-12.[address] [facility] Comment on above: Order Comment: Speci men Type: BLOOD SPECIMEN Ordering Facility: [facility] Address: [address] [place] [address] Performed By: #### 2 4362-6 #### [facility] CLIA [id number] [address] [place] [address] [place] Platelets (Bld) [#/Vol] 346 10*3/uL Normal 150-[address] [facility] Comment on above: Order Comment: Speci men Type: BLOOD SPECIMEN Ordering Facility: [facility] Address: [address] [place] [address] Performed By: #### 2 4362-6 #### [facility] CLIA [id number] [address] [place] [address] [place] RBC (Bld) [#/Vol] 3.94 10*6/uL Normal 3.90-5.20 [facility] Comment on above: Order Comment: Speci men Type: BLOOD SPECIMEN Ordering Facility: [facility] Address: [address] [place] [address] Performed By: #### 2 4362-6 #### [facility] CLIA [id number] [address] [place] [address] [place] WBC (Bld) [#/Vol] 8.22 10*3/uL Normal 3.70-11.00 [facility] Comment on above: Order Comment: Speci men Type: BLOOD SPECIMEN Ordering Facility: [facility] Address: [address] [place] [address] Performed By: #### 2 4362-6 #### [facility] CLIA [id number] [address] [place] [address] [place] Renal function 2000 panelon 07-09-2024 Albumin [Mass/Vol] 3.6 g/dL Low 3.9-4.9 [facility] Comment on above: Order Comment: Speci men Type: BLOOD SPECIMEN Ordering Facility: [facility] Address: [address] [place] [address] Performed By: #### 2 4362-6 #### [facility] CLIA [id number] [address] [place] [address] [place] Anion gap [Moles/Vol] 11 mmol/L Normal 8-15 [facility] Comment on above: Order Comment: Speci men Type: BLOOD SPECIMEN Ordering Facility: [facility] Address: [address] [place] [address] Performed By: #### 2 4362-6 #### [facility] CLIA [id number] [address] [place] [address] [place] Calcium [Mass/Vol] 8.8 mg/dL Normal 8.5-10.2 [facility] Comment on above: Order Comment: Speci men Type: BLOOD SPECIMEN Ordering Facility: [facility] Address: [address] [place] [address] Performed By: #### 2 4362-6 #### [facility] CLIA [id number] [address] [place] [address] [place] Chloride [Moles/Vol] 103 mmol/L Normal 98-107 [facility] Comment on above: Order Comment: Speci men Type: BLOOD SPECIMEN Ordering Facility: [facility] Address: [address] [place] [address] Performed By: #### 2 4362-6 #### [facility] CLIA [id number] [address] [place] [address] [place] CO2 [Moles/Vol] 22 mmol/L Normal 22-[address] [facility] Comment on above: Order Comment: Speci men Type: BLOOD SPECIMEN Ordering Facility: [facility] Address: [address] [place], [place] [address] Performed By: #### 2 4362-6 #### [facility] CLIA [id number] [address] [place], [place] [address] [place] Creatinine [Mass/Vol] 0.94 mg/dL Normal 0.58-0.96 [facility] Comment on above: Order Comment: Rhina mason Type: BLOOD SPECIMEN Ordering Facility: [facility] Address: [address] [place] [address] Performed By: #### 2 4362-6 #### [facility] CLIA [id number] [address] [place] [address] [place] Creatinine and Glomerular filtration rate.predicted panel (S/P/Bld) 60 mL/min/1.73m??? Normal >=[address] [facility] Comment on above: Order Comment: Rhina mason Type: BLOOD SPECIMEN Ordering Facility: [facility] Address: [address] [place] [address] Result Comment: Isa mated Glomerular Filtration Rate [...] GFR. Performed By: #### 2 4362-6 #### [facility] CLIA [id number] [address] [place] [address] [place] Glucose [Mass/Vol] 158 mg/dL High 74-99 [facility] Comment on above: Order Comment: Rhina mason Type: BLOOD SPECIMEN Ordering Facility: [facility] Address: [address] [place] [address] Result Comment: The [place] Diabetes [employer] (ADA) provides guidance for cutoff [...] Standards of Medical Care in Diabetes 2016, [place] [employer]. Diabetes Care. 2016.39(Suppl 1). Performed By: #### 2 4362-6 #### [facility] CLIA [id number] [address] [place] [address] [place] Phosphate [Mass/Vol] 2.0 mg/dL Low 2.7-4.8 [facility] Comment on above: Order Comment: Speci men Type: BLOOD SPECIMEN Ordering Facility: [facility] Address: [address] [place] [address] Performed By: #### 2 4362-6 #### [facility] CLIA [id number] [address] [place] [address] [place] Potassium [Moles/Vol] 4.1 mmol/L Normal 3.7-5.1 [facility] Comment on above: Order Comment: Speci men Type: BLOOD SPECIMEN Ordering Facility: [facility] Address: [address] [place] [address] Performed By: #### 2 4362-6 #### [facility] CLIA [id number] [address] [place] [address] [place] Sodium [Moles/Vol] 136 mmol/L Normal 136-144 [facility] Comment on above: Order Comment: Speci men Type: BLOOD SPECIMEN Ordering Facility: [facility] Address: [address] [place] [address] Performed By: #### 2 4362-6 #### [facility] CLIA [id number] [address] [place] [address] [place] Urea nitrogen [Mass/Vol] 18 mg/dL Normal 7-[address] [facility] Comment on above: Order Comment: Speci men Type: BLOOD SPECIMEN Ordering Facility: [facility] Address: [address] [place] [address] Performed By: #### 2 4362-6 #### [facility] CLIA [id number] [address] [place] [address] [place] CONSULTon 07-08-2024 CONSULT HNO ID: [id number] Author: JARED GILMORE MD Service: Ophthalmology Author [...] Mon-Tue, 7 am - 5 pm, page [phone] Mon-Tue, 5 pm - 7 am, page [phone] Weekends (Fri 5 pm to Mon 7 am), page [phone] EXAM: Base Eye Exam Visual Acuity Right Left Dist sc CF at 3' Tonometry (Applanation, 8:30 AM) Right Left Pressure 14 Pupils Dark Light Shape React Right 6 (more content not included)... Normal [facility] [id number] 07-07-2024 [id number] Normal [facility] BASIC METABOLIC PANELon - Anion gap [Moles/Vol] 4 mmol/L Normal 3-13 [facility] Comment on above: Performed By: #### L AB15 ####Material Requisitioner: VELMA VALADEZ ([id number])[facility])[address] [place] [address] Calcium [Mass/Vol] 8.7 mg/dL Low 8.8-10.0 [facility] Comment on above: Performed By: #### L AB15 ####Material Requisitioner: VELMA VALADEZ ([id number])[facility] [place] [address] Chloride [Moles/Vol] 111 mmol/L High 98-107 [facility] Comment on above: Performed By: #### L AB15 ####Material Requisitioner: VELMA VALADEZ ([id number])[facility])[address] [place] [address] CO2 [Moles/Vol] 23 mmol/L Normal 23-31 [facility] Comment on above: Performed By: #### L AB15 ####Material Requisitioner: VELMA VAALDEZ ([id number])[facility])[address] [place] [address] Creatinine [Mass/Vol] 0.84 mg/dL Normal 0.57-1.11 [facility] Comment on above: Performed By: #### L AB15 ####Material Requisitioner: VELMA VALADEZ ([id number])[facility])[address] [place] [address] GLOMERULAR FILTRATION RATE ML/MIN/1.73 SQ M.PREDICTED 68.6 mL/min/1.73m*2 Normal >60.0 [facility] Comment on above: Result Comment: Calc ulation based on the Chronic Kidney Disease Epidemiology Collaboration (CKD-EPI) equation refit without adjustment for race Performed By: #### L AB15 ####Material Requisitioner: VELMA VALADEZ ([id number])[facility])[address] [place] [address] Glucose [Mass/Vol] 102 mg/dL Normal 82-115 [facility] Comment on above: Performed By: #### L AB15 ####Material Requisitioner: VELMA VALADEZ ([id number])[facility])[address] [place] [address] Potassium [Moles/Vol] 4.0 mmol/L Normal 3.5-5.1 [facility] Comment on above: Result Comment: [facility] potassium values may be up to 0.5 mmol/L lower than serum values. Performed By: #### L AB15 ####Material Requisitioner: VELMA VALADEZ ([id number])[facility])[address] [place] [address] Sodium [Moles/Vol] 138 mmol/L Normal 136-145 [facility] Comment on above: Performed By: #### L AB15 ####Material Requisitioner: VELMA VALADEZ ([id number])[facility])[address] [place] [address] Urea nitrogen [Mass/Vol] 19 mg/dL Normal 9-23 [facility] Comment on above: Performed By: #### L AB15 ####Material Requisitioner: VELMA VALADEZ ([id number])[address] Basic metabolic 1998 panelon 07-07-2024 Anion gap [Moles/Vol] 4 mmol/L 3 - 13 mmol/L [facility] Calcium [Mass/Vol] 8.7 mg/dL Low 8.8 - 10. 0 mg/dL [facility] Chloride [Moles/Vol] 111 mmol/L High 98 - 10 7 mmol/L [facility] CO2 [Moles/Vol] 23 mmol/L 23 - 31 mmol/L [facility] Creatinine [Mass/Vol] 0.84 mg/dL 0.57 - 1.11 mg/dL [facility] GFR/1.73 sq M.predicted (S/P/Bld) [Vol rate/Area] 68.6 mL/min - PINF [facility] Comment on above: Calculation based on the Chronic Kidney Disease Epidemiology Collaboration (CKD-EPI) equation refit without adjustment for race Glucose [Mass/Vol] 102 mg/dL 82 - 115 mg/dL [facility] Interpretation and review of laboratory results Abnormal [facility] Potassium [Moles/Vol] 4 mmol/L 3.5 - 5.1 mmol/L [facility] Comment on above: Plasma potassium chris ues may be up to 0.5 mmol/L lower than serum values. Sodium [Moles/Vol] 138 mmol/L 136 - 145 mmol/L [facility] Urea nitrogen [Mass/Vol] 19 mg/dL 9 - 23 mg/dL [facility] CBC W Auto Differential pane l (Bld)Ordered By: Devika Eisenberg on 07-07-2024 Basophils (Bld) [#/Vol] 0 10*3/uL 0.0 - 0.2 10*3/uL [facility] Basophils/100 WBC (Bld) 0.4 % 0.0 - 2.0 % [facility] Eosinophils (Bld) [#/Vol] 0.1 10*3/uL 0.0 - 0.5 10*3/uL [facility] Eosinophils/100 WBC (Bld) 1.3 % 0.0 - 6.0 % [facility] Erythrocyte distribution width (RBC) [Ratio] 17.6 % High 11.5 - 15.0 % [facility] Hematocrit (Bld) [Volume fraction] 29.9 % Low 35.0 - 47.0 % [facility] Hemoglobin (Bld) [Mass/Vol] 9.1 g/dL Low 11.7 - 16.0 g/dL [facility] Immature granulocytes (Bld) [#/Vol] 0 10*3/uL NINF - 0.1 10*3/uL [facility] Immature granulocytes/100 WBC (Bld) 0.2 % 0.0 - 2.0 % [facility] Interpretation and review of laboratory results Abnormal [facility] Lymphocytes (Bld) [#/Vol] 1.2 10*3/uL 1.0 - 4.3 10*3/uL [facility] Lymphocytes/100 WBC (Bld) 22 % 15.0 - 45.0 % [facility] MCH (RBC) [Entitic mass] 25.9 pg Low 26.0 - 34.0 pg [facility] MCHC (RBC) [Mass/Vol] 30.4 % Low 30.5 - 36.0 % [facility] MCV (RBC) [Entitic vol] 84.9 fL 77.0 - 99.0 fL [facility] Monocytes (Bld) [#/Vol] 0.6 10*3/uL 0.0 - 0.9 10*3/uL [facility] Monocytes/100 WBC (Bld) 10 % 5.0 - 13.0 % [facility] Neutrophils (Bld) [#/Vol] 3.7 10*3/uL 1.8 - 7.5 10*3/uL [facility] Neutrophils/100 WBC (Bld) 66.1 % 38.0 - 82.0 % [facility] Nucleated RBC/100 WBC (Bld) [Ratio] 0 % [facility] Stremor Platelet mean volume (Bld) [Entitic vol] 9.8 fL 9.0 - 12.7 fL [facility] Platelets (Bld) [#/Vol] 301 10*3/uL 140 - 440 10*3/uL [facility] RBC (Bld) [#/Vol] 3.52 10*6/uL Low 3.80 - 5.2 0 10*6/uL [facility] WBC (Bld) [#/Vol] 5.6 10*3/uL 3.6 - 10.7 10*3/uL [facility] CBC WITH AUTO DIFFERENTIALon 07-07-2024 Basophils (Bld) [#/Vol] 0.0 10*3/uL Normal 0.0-0.2 [facility] Comment on above: Performed By: #### L [id number] ####Material Requisitioner: VELMA VALADEZ ([id number])[facility])[address] [place] [address] Basophils/100 WBC (Bld) 0.4 % Normal 0.0-2.0 [facility] Comment on above: Performed By: #### L [id number] ####Material Requisitioner: VELMA VALADEZ ([id number])[facility] ([facility])[address] [place] [address] Eosinophils (Bld) [#/Vol] 0.1 10*3/uL Normal 0.0-0.5 [facility] Comment on above: Performed By: #### L [id number] ####Material Requisitioner: VELMA VALADEZ ([id number])[facility] ([facility])[address] [place] [address] Eosinophils/100 WBC (Bld) 1.3 % Normal 0.0-6.0 [facility] Comment on above: Performed By: #### L [id number] ####Material Requisitioner: VELMA VALADEZ ([id number])[facility] ([facility])[address] [place] [address] Erythrocyte distribution width (RBC) [Ratio] 17.6 % High 11.5-15.0 [facility] Comment on above: Performed By: #### L [id number] ####Material Requisitioner: VELMA [id number])[facility] ([address] Hematocrit (Bld) [Volume fraction] 29.9 % Low 35.0-47.0 [facility] Comment on above: Performed By: #### L [id number] ####Material Requisitioner: VELMA VALADEZ ([id number])[facility])[address] [place] [address] Hemoglobin (Bld) [Mass/Vol] 9.1 g/dL Low 11.7-16.0 [facility] Comment on above: Performed By: #### L [id number] ####Material Requisitioner: VELMA VALADEZ ([id number])[facility])[address] [place] [address] IMMATURE GRANS % 0.2 % Normal 0.0-2.0 [facility] Comment on above: Performed By: #### L [id number] ####Material Requisitioner: VELMA VALADEZ ([id number])[facility])[address] [place] [address] IMMATURE GRANS ABSOLUTE 0.0 10*3/uL Normal <0.1 [facility] Comment on above: Performed By: #### L [id number] ####Material Requisitioner: VELMA VALADEZ ([id number])[facility])[address] [place] [address] Lymphocytes (Bld) [#/Vol] 1.2 10*3/uL Normal 1.0-4.3 [facility] Comment on above: Performed By: #### L [id number] ####Material Requisitioner: VELMA VALADEZ ([id number])[facility])[address] [place] [address] Lymphocytes/100 WBC (Bld) 22.0 % Normal 15.0-45.0 [facility] Comment on above: Performed By: #### L [id number] ####Material Requisitioner: VELMA VALADEZ ([id number])[facility])[address] [place] [address] MCH (RBC) [Entitic mass] 25.9 pg Low 26.0-34.0 [facility] Comment on above: Performed By: #### L [id number] ####Material Requisitioner: VELMA VALADEZ ([id number])[facility])[address] [place] [address] MCHC 30.4 % Low 30.5-36.0 [facility] Comment on above: Performed By: #### L [id number] ####Material Requisitioner: VELMA VALADEZ ([id number])[facility])[address] [place] [address] MCV (RBC) [Entitic vol] 84.9 fL Normal 77.0-99.0 [facility] Comment on above: Performed By: #### L [id number] ####Material Requisitioner: VELAM VALADEZ ([id number])[facility])[address] [place] [address] Monocytes (Bld) [#/Vol] 0.6 10*3/uL Normal 0.0-0.9 [facility] Comment on above: Performed By: #### L [id number] ####Material Requisitioner: VELMA VALADEZ ([id number])[facility])[address] [place] [address] Monocytes/100 WBC (Bld) 10.0 % Normal 5.0-13.0 [facility] Comment on above: Performed By: #### L [id number] ####Material Requisitioner: VELMA VALADEZ ([id number])[facility])[address] [place] [address] NEUTROPHILS ABSOLUTE 3.7 10*3/uL Normal 1.8-7.5 [facility] Comment on above: Performed By: #### L [id number] ####Material Requisitioner: VELMA VALADEZ ([id number])[facility])[address] [place] [address] Neutrophils/100 WBC (Bld) 66.1 % Normal 38.0-82.0 [facility] Comment on above: Performed By: #### L [id number] ####Material Requisitioner: VELMA VALADEZ ([id number])[facility] ([facility])[address] [place] [address] NRBC 0.0 /100 WBCs Normal 0.0-2.0 [facility] Comment on above: Performed By: #### L [id number] ####Material Requisitioner: VELMA VALADEZ ([id number])[facility])[address] [place] [address] Platelet mean volume (Bld) [Entitic vol] 9.8 fL Normal 9.0-12.7 [facility] Comment on above: Performed By: #### L [id number] ####Material Requisitioner: VELMA VALADEZ ([id number])[facility])[address] [place] [address] Platelets (Bld) [#/Vol] 301 10*3/uL Normal 140-440 [facility] Comment on above: Performed By: #### L [id number] ####Material Requisitioner: VELMA VALADEZ ([id number])[facility] ([facility])[address] [place] [address] RBC (Bld) [#/Vol] 3.52 10*6/uL Low 3.80-5.20 [facility] Comment on above: Performed By: #### L [id number] ####Material Requisitioner: VELMA VALADEZ ([id number])[facility])[address] [place] [address] WBC (Bld) [#/Vol] 5.6 10*3/uL Normal 3.6-10.7 [facility] Comment on above: Performed By: #### L [id number] ####Material Requisitioner: VELMA VALADEZ ([id number])[facility])[address] [place] [address] CBC panel Auto (Bld)on 07-07 Erythrocyte distribution width (RBC) [Ratio] 17.5 % High 11.5-15.[address] [facility] Comment on above: Order Comment: Speci men Type: BLOOD SPECIMEN Ordering Facility: [facility] Address: [address] [place] [address] Performed By: #### 2 4362-6 #### [facility] CLIA [id number] [address] [place] [address] [place] Hematocrit (Bld) [Volume fraction] 32.7 % Low 36.0-46.[address] [facility] Comment on above: Order Comment: Speci men Type: BLOOD SPECIMEN Ordering Facility: [facility] Address: [address] [place] [address] Performed By: #### 2 4362-6 #### [facility] CLIA [id number] [address] [place] [address] [place] Hemoglobin (Bld) [Mass/Vol] 10.2 g/dL Low 11.5-15.[address] [facility] Comment on above: Order Comment: Speci men Type: BLOOD SPECIMEN Ordering Facility: [facility] Address: [address] [place] [address] Performed By: #### 2 4362-6 #### [facility] CLIA [id number] [address] [place] [address] [place] MCH (RBC) [Entitic mass] 26.8 pg Normal 26.0-34.[address] [facility] Comment on above: Order Comment: Speci men Type: BLOOD SPECIMEN Ordering Facility: [facility] Address: [address] [place] [address] Performed By: #### 2 4362-6 #### [facility] CLIA [id number] [address] [place] [address] [place] MCHC (RBC) [Mass/Vol] 31.2 g/dL Normal 30.5-36.0 [facility] Comment on above: Order Comment: Speci men Type: BLOOD SPECIMEN Ordering Facility: [facility] Address: [address] [place] [address] Performed By: #### 2 4362-6 #### [facility] CLIA [id number] [address] [place] [address] [place] MCV (RBC) [Entitic vol] 86.1 fL Normal 80.0-100.0 [facility] Comment on above: Order Comment: Speci men Type: BLOOD SPECIMEN Ordering Facility: [facility] Address: [address] [place] [address] Performed By: #### 2 4362-6 #### [facility] CLIA [id number] [address] [place] [address] [place] Nucleated RBC (Bld) [#/Vol] 10*3/uL Normal <0.[address] [facility] Comment on above: Order Comment: Speci men Type: BLOOD SPECIMEN Ordering Facility: [facility] Address: [address] [place] [address] Performed By: #### 2 4362-6 #### [facility] CLIA [id number] [address] [place] [address] [place] Platelet mean volume (Bld) [Entitic vol] 9.8 fL Normal 9.0-12.[address] [facility] Comment on above: Order Comment: Speci men Type: BLOOD SPECIMEN Ordering Facility: [facility] Address: [address] [place] [address] Performed By: #### 2 4362-6 #### [facility] CLIA [id number] [place] [address] [place] Platelets (Bld) [#/Vol] 284 10*3/uL Normal 150-[address] [facility] Comment on above: Order Comment: Speci men Type: BLOOD SPECIMEN Ordering Facility: [facility] Address: [address] [place] [address] Performed By: #### 2 4362-6 #### [facility] CLIA [id number] [address] [place] [address] [place] RBC (Bld) [#/Vol] 3.80 10*6/uL Low 3.90-5.20 [facility] Comment on above: Order Comment: Speci men Type: BLOOD SPECIMEN Ordering Facility: [facility] Address: [address] [place] [address] Performed By: #### 2 4362-6 #### [facility] CLIA [id number] [address] [place] [address] [place] WBC (Bld) [#/Vol] 5.72 10*3/uL Normal 3.70-11.00 [facility] Comment on above: Order Comment: Speci men Type: BLOOD SPECIMEN Ordering Facility: [facility] Address: [address] [place] [address] Performed By: #### 2 4362-6 #### [facility] CLIA [id number] [address] [place] [address] [place] ORBITS WO IVCONon -21-[address] ORBITS WO IVCON * * *Final Report* * * DATE OF EXAM: Jul 07 2024 8:21PM [facility] [place] [facility] 0510 - CT ORBITS WO IVCON / [...] changes. Unchanged appearance of left globe/phthisis bulbi. Assistant Plant Controller: PSCB Transcribe Date/Time: Jul 07 2024 8:24P Dictated by : ULICES LEBLANC MD This examination was interpreted and the report reviewed and electronically signed by: DE JAIN MD on Jul 07 2024 9:18PM EST [id number] Normal [facility] HISTORY PHYSICALon HISTORY PHYSICAL HNO ID: [id number] Author: FELICIA LEVY MD Service: General Internal [...] 3pm to 7am): Please page on-call resident [phone] (Jonathan Chaudhry Subjective CHIEF COMPLAINT: Acute angle [...] right middle cerebral artery territory. 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 She was subsequently taken by the labor economist for peripheral iridotomy's, which helped to reduce elevated intraocular pressure down to 10.2 mmHg in the R eye. Furthermore, was evaluated by stroke team at [facility] who reviewed her images and believed her headache and severe vision loss was secondary to the acute closure glaucoma and not stroke. Ultimately, it was determined that due to vision now being reduced to only one eye she required retinal specialist at [facility] for repair of acute retinal detachment on [...] of breath., Disp: , Rfl: , 07/06/2024 wezufvdfpwf-uouudakyh-n ilanter (TRELEGY ELLIPTA) 100-62.5-25 mcg inhalation powder, Inhale 1 (more content not included)... Normal [facility] NURSING PROGon 07-07-2024 NURSING PROG HNO ID: [id number] Author: SONNY CASTILLO, RADHA Service: Nursing Author [...] she experiences pain. Normal [facility] NURSING PROG HNO ID: [id number] Author: WINIFRED HILLS RN Service: ? Author Type: Registered Nurse Type: Nursing Progress Note Filed: 07/07/2024 12:15 Note Text: Transfer Note: PATIENT NAME: Mel Castillo Patient Location: [place] [address]/60-31 Room: [place] [address] Patient transferred into room/unit H60-31 in stable condition. Actions taken: Team notified. Patient belongings with patient. Pt oriented to the floor policy and fall prevention protocol. Call light within reach. Normal [facility] Nursing Noteon 07-07-2024 Nursing Note Report called to [facility]. Normal [facility] Progress Noteon 07-07-2024 Progress Note Nutrition rescreen completed. Chart reviewed. Patient to be monitored and followed by the diet plastic eye technician. Normal [facility] Renal function 2000 panelon 07-07-2024 Albumin [Mass/Vol] 3.7 g/dL Low 3.9-4.9 [facility] Comment on above: Order Comment: Speci men Type: BLOOD SPECIMEN Ordering Facility: [facility] Address: [address] [place] [address] Performed By: #### 2 4362-6 #### [facility] CLIA [id number] [address] [place] [address] [place] Anion gap [Moles/Vol] 12 mmol/L Normal 8-15 [facility] Comment on above: Order Comment: Speci men Type: BLOOD SPECIMEN Ordering Facility: [facility] Address: [address] [place] [address] Performed By: #### 2 4362-6 #### [facility] CLIA [id number] [address] [place] [address] [place] Calcium [Mass/Vol] 9.2 mg/dL Normal 8.5-10.2 [facility] Comment on above: Order Comment: Speci men Type: BLOOD SPECIMEN Ordering Facility: [facility] Address: [address] [place] [address] Performed By: #### 2 4362-6 #### [facility] CLIA [id number] [address] [place] [address] [place] Chloride [Moles/Vol] 107 mmol/L Normal 98-107 [facility] Comment on above: Order Comment: Speci men Type: BLOOD SPECIMEN Ordering Facility: [facility] Address: [address] [place] [address] Performed By: #### 2 4362-6 #### [facility] CLIA [id number] [address] [place] [address] [place] CO2 [Moles/Vol] 20 mmol/L Low 22-[address] [facility] Comment on above: Order Comment: Speci men Type: BLOOD SPECIMEN Ordering Facility: [facility] Address: [address] [place], [place] [address] Performed By: #### 2 4362-6 #### [facility] CLIA [id number] [address] [place] [address] [place] Creatinine [Mass/Vol] 0.82 mg/dL Normal 0.58-0.96 [facility] Comment on above: Order Comment: Speci men Type: BLOOD SPECIMEN Ordering Facility: [facility] Address: [address] [place] [address] Performed By: #### 2 4362-6 #### [facility] CLIA [id number] [address] [place] [address] [place] Creatinine and Glomerular filtration rate.predicted panel (S/P/Bld) 71 mL/min/1.73m??? Normal >=[address] [facility] Comment on above: Order Comment: Rhina mason Type: BLOOD SPECIMEN Ordering Facility: [facility] Address: [address] [place] [address] Result Comment: Isa mated Glomerular Filtration Rate [...] GFR. Performed By: #### 2 4362-6 #### [facility] CLIA [id number] [address] [place] [address] [place] Glucose [Mass/Vol] 106 mg/dL High 74-99 [facility] Comment on above: Order Comment: Rhina mason Type: BLOOD SPECIMEN Ordering Facility: [facility] Address: [address] [place] [address] Result Comment: The [place] Diabetes Association (ADA) provides guidance for cutoff [...] Standards of Medical Care in Diabetes 2016, [place] [employer]. Diabetes Care. 2016.39(Suppl 1). Performed By: #### 2 4362-6 #### [facility] CLIA [id number] [address] [place], [place] [address] [place] Phosphate [Mass/Vol] 3.0 mg/dL Normal 2.7-4.8 [facility] Comment on above: Order Comment: Speci men Type: BLOOD SPECIMEN Ordering Facility: [facility] Address: [address] [place] [address] Performed By: #### 2 4362-6 #### [facility] CLIA [id number] [address] [place] [address] [place] Potassium [Moles/Vol] 4.3 mmol/L Normal 3.7-5.1 [facility] Comment on above: Order Comment: Speci men Type: BLOOD SPECIMEN Ordering Facility: [facility] Address: [address] [place] [address] Performed By: #### 2 4362-6 #### [facility] CLIA [id number] [address] [place] [address] [place] Sodium [Moles/Vol] 139 mmol/L Normal 136-144 [facility] Comment on above: Order Comment: Speci men Type: BLOOD SPECIMEN Ordering Facility: [facility] Address: [address] [place] [address] Performed By: #### 2 4362-6 #### [facility] CLIA [id number] [address] [place] [address] [place] Urea nitrogen [Mass/Vol] 16 mg/dL Normal 7-[address] [facility] Comment on above: Order Comment: Speci men Type: BLOOD SPECIMEN Ordering Facility: [facility] Address: [address] [place] [address] Performed By: #### 2 4362-6 #### [facility] CLIA [id number] [address] [place], [place] [address] [place] [id number] 07-06-2024 [id number] [facility] BASIC METABOLIC PANELon 12-2 0-2023 Anion gap [Moles/Vol] 9 mmol/L Normal 3-13 [facility] Comment on above: Performed By: #### L AB15 ####Material Requisitioner: VELMA VALADEZ ([id number])[facility] [place] [address] Calcium [Mass/Vol] 8.9 mg/dL Normal 8.8-10.0 [facility] Comment on above: Performed By: #### L AB15 ####Material Requisitioner: VELMA VALADEZ ([id number])[facility] [place] [address] Chloride [Moles/Vol] 113 mmol/L High 98-107 [facility] Comment on above: Performed By: #### L AB15 ####Material Requisitioner: VELMA VALADEZ ([id number])[facility] [place] [address] CO2 [Moles/Vol] 18 mmol/L Low 23-31 [facility] Comment on above: Performed By: #### L AB15 ####Material Requisitioner: VELMA VALADEZ ([id number])[facility] ([facility])[address] [place] [address] Creatinine [Mass/Vol] 0.86 mg/dL Normal 0.57-1.11 [facility] Comment on above: Performed By: #### L AB15 ####Material Requisitioner: VELMA VALADEZ ([id number])[facility] ([facility])[address] [place] [address] GLOMERULAR FILTRATION RATE ML/MIN/1.73 SQ M.PREDICTED 66.7 mL/min/1.73m*2 Normal >60.0 [facility] Comment on above: Result Comment: Calc ulation based on the Chronic Kidney Disease Epidemiology Collaboration (CKD-EPI) equation refit without adjustment for race Performed By: #### L AB15 ####Material Requisitioner: VELMA VALADEZ ([id number])[facility] [place] [address] Glucose [Mass/Vol] 74 mg/dL Low 82-115 [facility] Comment on above: Performed By: #### L AB15 ####Material Requisitioner: VELMA VALADEZ ([id number])[facility])[address] [place] [address] Potassium [Moles/Vol] 4.5 mmol/L Normal 3.5-5.1 [facility] Comment on above: Result Comment: [facility] potassium values may be up to 0.5 mmol/L lower than serum values. Performed By: #### L AB15 ####Material Requisitioner: VELMA VALADEZ ([id number])[facility] ([facility])[address] [place] [address] Sodium [Moles/Vol] 140 mmol/L Normal 136-145 [facility] Comment on above: Performed By: #### L AB15 ####Material Requisitioner: VELMA VALADEZ ([id number])[facility] ([facility])[address] [place] [address] Urea nitrogen [Mass/Vol] 16 mg/dL Normal 9-23 [facility] Comment on above: Performed By: #### L AB15 ####Material Requisitioner: VELMA VALADEZ ([id number])[facility])[address] [place] [address] Basic metabolic 1998 panelon 07-06-2024 Anion gap [Moles/Vol] 9 mmol/L 3 - 13 mmol/L [facility] Calcium [Mass/Vol] 8.9 mg/dL 8.8 - 10. 0 mg/dL [facility] Chloride [Moles/Vol] 113 mmol/L High 98 - 10 7 mmol/L [facility] CO2 [Moles/Vol] 18 mmol/L Low 23 - 31 mmol/L [facility] Creatinine [Mass/Vol] 0.86 mg/dL 0.57 - 1.11 mg/dL [facility] GFR/1.73 sq M.predicted (S/P/Bld) [Vol rate/Area] 66.7 mL/min - PINF [facility] Comment on above: Calculation based on the Chronic Kidney Disease Epidemiology Collaboration (CKD-EPI) equation refit without adjustment for race Glucose [Mass/Vol] 74 mg/dL Low 82 - 115 mg/dL [facility] Interpretation and review of laboratory results Abnormal [facility] Potassium [Moles/Vol] 4.5 mmol/L 3.5 - 5.1 mmol/L [facility] Comment on above: Plasma potassium chris ues may be up to 0.5 mmol/L lower than serum values. Sodium [Moles/Vol] 140 mmol/L 136 - 145 mmol/L [facility] Urea nitrogen [Mass/Vol] 16 mg/dL 9 - 23 mg/dL [facility] CBC W Auto Differential pane l (Bld)Ordered By: Daija Doran on 07-06-2024 Basophils (Bld) [#/Vol] 0 10*3/uL 0.0 - 0.2 10*3/uL [facility] Basophils/100 WBC (Bld) 0.5 % 0.0 - 2.0 % [facility] Eosinophils (Bld) [#/Vol] 0 10*3/uL 0.0 - 0.5 10*3/uL [facility] Eosinophils/100 WBC (Bld) 0.3 % 0.0 - 6.0 % [facility] Erythrocyte distribution width (RBC) [Ratio] 17.8 % High 11.5 - 15.0 % [facility] Hematocrit (Bld) [Volume fraction] 31.8 % Low 35.0 - 47.0 % [facility] Hemoglobin (Bld) [Mass/Vol] 9.7 g/dL Low 11.7 - 16.0 g/dL [facility] Immature granulocytes (Bld) [#/Vol] 0 10*3/uL NINF - 0.1 10*3/uL [facility] Stremor Immature granulocytes/100 WBC (Bld) 0.3 % 0.0 - 2.0 % [facility] Interpretation and review of laboratory results Abnormal [facility] Lymphocytes (Bld) [#/Vol] 1.2 10*3/uL 1.0 - 4.3 10*3/uL [facility] Lymphocytes/100 WBC (Bld) 18.9 % 15.0 - 45.0 % [facility] MCH (RBC) [Entitic mass] 26.4 pg 26.0 - 34.0 pg [facility] MCHC (RBC) [Mass/Vol] 30.5 % 30.5 - 36.0 % [facility] MCV (RBC) [Entitic vol] 86.4 fL 77.0 - 99.0 fL [facility] Monocytes (Bld) [#/Vol] 0.5 10*3/uL 0.0 - 0.9 10*3/uL [facility] Monocytes/100 WBC (Bld) 8.2 % 5.0 - 13.0 % [facility] Neutrophils (Bld) [#/Vol] 4.4 10*3/uL 1.8 - 7.5 10*3/uL [facility] Neutrophils/100 WBC (Bld) 71.8 % 38.0 - 82.0 % [facility] Nucleated RBC/100 WBC (Bld) [Ratio] 0 % [facility] Platelet mean volume (Bld) [Entitic vol] 10.9 fL 9.0 - 12.7 fL [facility] Platelets (Bld) [#/Vol] 278 10*3/uL 140 - 440 10*3/uL [facility] RBC (Bld) [#/Vol] 3.68 10*6/uL Low 3.80 - 5.2 0 10*6/uL [facility] WBC (Bld) [#/Vol] 6.1 10*3/uL 3.6 - 10.7 10*3/uL [facility] CBC WITH AUTO DIFFERENTIALon 07-06-2024 Basophils (Bld) [#/Vol] 0.0 10*3/uL Normal 0.0-0.2 [facility] Comment on above: Performed By: #### L [id number] ####Material Requisitioner: VELMA VALADEZ ([id number])[facility] ([facility])[address] [place] [address] Basophils/100 WBC (Bld) 0.5 % Normal 0.0-2.0 [facility] Comment on above: Performed By: #### L [id number] ####Material Requisitioner: VELMA VALADEZ ([id number])[facility])[address] [place] [address] Eosinophils (Bld) [#/Vol] 0.0 10*3/uL Normal 0.0-0.5 [facility] Comment on above: Performed By: #### L [id number] ####Material Requisitioner: VELMA VALADEZ ([id number])[facility])[address] [place] [address] Eosinophils/100 WBC (Bld) 0.3 % Normal 0.0-6.0 [facility] Comment on above: Performed By: #### L [id number] ####Material Requisitioner: VELMA VALADEZ ([id number])[facility])[address] [place] [address] Erythrocyte distribution width (RBC) [Ratio] 17.8 % High 11.5-15.0 [facility] Comment on above: Performed By: #### L [id number] ####Material Requisitioner: VELMA VALADEZ ([id number])[address] Hematocrit (Bld) [Volume fraction] 31.8 % Low 35.0-47.0 [facility] Comment on above: Performed By: #### L [id number] ####Material Requisitioner: VELMA VALADEZ ([id number])[address] Hemoglobin (Bld) [Mass/Vol] 9.7 g/dL Low 11.7-16.0 [facility] Comment on above: Performed By: #### L [id number] ####Material Requisitioner: VELMA VALADEZ ([id number])[facility])[address] [place] [address] IMMATURE GRANS % 0.3 % Normal 0.0-2.0 [facility] Comment on above: Performed By: #### L [id number] ####Material Requisitioner: VELMA VALADEZ ([id number])[address] IMMATURE GRANS ABSOLUTE 0.0 10*3/uL Normal <0.1 [facility] Comment on above: Performed By: #### L [id number] ####Material Requisitioner: VELMA VALADEZ ([id number])[facility] ([facility])[address] [place] [address] Lymphocytes (Bld) [#/Vol] 1.2 10*3/uL Normal 1.0-4.3 [facility] Comment on above: Performed By: #### L [id number] ####Material Requisitioner: VELMA VALADEZ ([id number])[facility])[address] [place] [address] Lymphocytes/100 WBC (Bld) 18.9 % Normal 15.0-45.0 [facility] Comment on above: Performed By: #### L [id number] ####Material Requisitioner: VELMA VALADEZ ([id number])[facility])[address] [place] [address] MCH (RBC) [Entitic mass] 26.4 pg Normal 26.0-34.0 [facility] Comment on above: Performed By: #### L [id number] ####Material Requisitioner: VELMA VALADEZ ([id number])[facility])[address] [place] [address] MCHC 30.5 % Normal 30.5-36.0 [facility] Comment on above: Performed By: #### L [id number] ####Material Requisitioner: VELMA VALADEZ ([id number])[facility])[address] [place] [address] MCV (RBC) [Entitic vol] 86.4 fL Normal 77.0-99.0 [facility] Comment on above: Performed By: #### L [id number] ####Material Requisitioner: VELMA VALADEZ ([id number])[facility])[address] [place] [address] Monocytes (Bld) [#/Vol] 0.5 10*3/uL Normal 0.0-0.9 [facility] Comment on above: Performed By: #### L [id number] ####Material Requisitioner: VELMA VALADEZ ([id number])[facility])[address] [place] [address] Monocytes/100 WBC (Bld) 8.2 % Normal 5.0-13.0 [facility] Comment on above: Performed By: #### L [id number] ####Material Requisitioner: VELMA VALADEZ ([id number])[facility] ([facility])[address] [place] [address] NEUTROPHILS ABSOLUTE 4.4 10*3/uL Normal 1.8-7.5 [facility] Comment on above: Performed By: #### L [id number] ####Material Requisitioner: VELMA VALADEZ ([id number])[facility] ([facility])[address] [place] [address] Neutrophils/100 WBC (Bld) 71.8 % Normal 38.0-82.0 [facility] Comment on above: Performed By: #### L [id number] ####Material Requisitioner: VELMA VALADEZ ([id number])[facility] ([facility])[address] [place] [address] NRBC 0.0 /100 WBCs Normal 0.0-2.0 [facility] Comment on above: Performed By: #### L [id number] ####Material Requisitioner: VELMA VALADEZ ([id number])[facility] ([facility])[address] [place] [address] Platelet mean volume (Bld) [Entitic vol] 10.9 fL Normal 9.0-12.7 [facility] Comment on above: Performed By: #### L [id number] ####Material Requisitioner: VELMA VALADEZ ([id number])[facility] ([facility])[address] [place] [address] Platelets (Bld) [#/Vol] 278 10*3/uL Normal 140-440 [facility] Comment on above: Performed By: #### L [id number] ####Material Requisitioner: VELMA VALADEZ ([id number])[facility] ([facility])[address] [place] [address] RBC (Bld) [#/Vol] 3.68 10*6/uL Low 3.80-5.20 [facility] Comment on above: Performed By: #### L [id number] ####Material Requisitioner: VELMA VALADEZ ([id number])[facility] [place] [address] WBC (Bld) [#/Vol] 6.1 10*3/uL Normal 3.6-10.7 [facility] Comment on above: Performed By: #### L [id number] ####Material Requisitioner: VELMA VALADEZ ([id number])[facility] ([facility])[address] [place] [address] CNPNon 07-06-2024 CNPN Telephone (OPHTMN) MEL GUADARRAMA ([id number]) [facility] Date Time Provider Department 07/06/24 RYAN ELIZONDO During your visit today, we recorded the following information about you: Ryan Elizondo MD 07/06/2024 2:42 PM Signed TELEPHONE ENCOUNTER 07/06/2024 Patient with recent stroke and admitted to [facility] where she was noted to have elevated IOP with retinal detachment of the right eye by consult labor economist. 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 - hsnuxnhsvkn-khzpqjejm-h ilanter (TRELEGY ELLIPTA) 100-62.5-25 mcg inhalation powder [...] Status:Closed by RYAN ELIZONDO on 07/06/24 Normal [facility] Consulton 07-06-2024 Consult Normal [facility] Nursing Noteon 07-06-2024 Nursing Note This RN called Protective Services to try and locate pts lost glasses from 07/05/2024. Glasses that match the description are in lost and found. Will attempt to see if glasses are a match. Normal [facility] Progress Noteon 07-06-2024 Progress Note Normal [facility] Progress Note Normal [facility] CBC (HEMOGRAM)on 07-05-2024 Erythrocyte distribution width (RBC) [Ratio] 17.2 % High 11.5-15.0 [facility] Comment on above: Performed By: #### L [id number] ####Material Requisitioner: VELMA VALADEZ ([id number])[address] Hematocrit (Bld) [Volume fraction] 32.8 % Low 35.0-47.0 [facility] Comment on above: Performed By: #### L [id number] ####Material Requisitioner: VELMA VALADEZ ([id number])[address] Hemoglobin (Bld) [Mass/Vol] 10.6 g/dL Low 11.7-16.0 [facility] Comment on above: Performed By: #### L [id number] ####Material Requisitioner: VELMA VALADEZ ([id number])[facility])[address] [place] [address] MCH (RBC) [Entitic mass] 26.4 pg Normal 26.0-34.0 [facility] Comment on above: Performed By: #### L [id number] ####Material Requisitioner: VELMA VALADEZ ([id number])[facility] ([facility])[address] [place] [address] MCHC 32.3 % Normal 30.5-36.0 [facility] Comment on above: Performed By: #### L [id number] ####Material Requisitioner: VELMA VALADEZ ([id number])[facility] ([facility])[address] [place] [address] MCV (RBC) [Entitic vol] 81.8 fL Normal 77.0-99.0 [facility] Comment on above: Performed By: #### L [id number] ####Material Requisitioner: VELMA VALADEZ ([id number])[facility] ([facility])[address] [place] [address] Platelet mean volume (Bld) [Entitic vol] 9.6 fL Normal 9.0-12.7 [facility] Comment on above: Performed By: #### L [id number] ####Material Requisitioner: VELMA VALADEZ ([id number])[facility] ([facility])[address] [place] [address] Platelets (Bld) [#/Vol] 349 10*3/uL Normal 140-440 [facility] Comment on above: Performed By: #### L [id number] ####Material Requisitioner: VELMA VALADEZ ([id number])[facility] ([facility])[address] [place] [address] RBC (Bld) [#/Vol] 4.01 10*6/uL Normal 3.80-5.20 [facility] Comment on above: Performed By: #### L [id number] ####Material Requisitioner: VELMA VALADEZ ([id number])[facility] ([facility])[address] [place] [address] WBC (Bld) [#/Vol] 5.5 10*3/uL Normal 3.6-10.7 [facility] Comment on above: Performed By: #### L [id number] ####Material Requisitioner: VELMA VALADEZ ([id number])[facility] ([facility])[address] [place] [address] CBC panel Auto (Bld)on 07-05 Erythrocyte distribution width (RBC) [Ratio] 17.2 % High 11.5 - 15.0 % [facility] Hematocrit (Bld) [Volume fraction] 32.8 % Low 35.0 - 47.0 % [facility] Hemoglobin (Bld) [Mass/Vol] 10.6 g/dL Low 11.7 - 16.0 g/dL [facility] Interpretation and review of laboratory results Abnormal [facility] MCH (RBC) [Entitic mass] 26.4 pg 26.0 - 34.0 pg [facility] MCHC (RBC) [Mass/Vol] 32.3 % 30.5 - 36.0 % [facility] MCV (RBC) [Entitic vol] 81.8 fL 77.0 - 99.0 fL [facility] Platelet mean volume (Bld) [Entitic vol] 9.6 fL 9.0 - 12.7 fL [facility] Platelets (Bld) [#/Vol] 349 10*3/uL 140 - 440 10*3/uL [facility] RBC (Bld) [#/Vol] 4.01 10*6/uL 3.80 - 5.2 0 10*6/uL [facility] WBC (Bld) [#/Vol] 5.5 10*3/uL 3.6 - 10.7 10*3/uL [facility] COMPREHENSIVE METABOLIC PANE Gilberto 07-05-2024 Albumin [Mass/Vol] 3.6 g/dL Normal 3.4-4.8 [facility] Comment on above: Performed By: #### L [id number], LAB17 ####Material Requisitioner: VELMA VALADEZ ([id number])[facility] ([facility])[address] [place] [address] ALP [Catalytic activity/Vol] 94 U/L Normal 40-150 [facility] Comment on above: Performed By: #### L [id number], LAB17 ####Material Requisitioner: VELMA VALADEZ ([id number])[facility] ([facility])[address] [place] [address] ALT [Catalytic activity/Vol] 23 U/L Normal <30 [facility] Comment on above: Performed By: #### L [id number], LAB17 ####Material Requisitioner: VELMA VALADEZ ([id number])[facility] ([facility])[address] [place] [address] Anion gap [Moles/Vol] 10 mmol/L Normal 3-13 [facility] Comment on above: Performed By: #### L [id number], LAB17 ####Material Requisitioner: VELMA VALADEZ ([id number])[facility] ([facility])[address] [place] [address] AST [Catalytic activity/Vol] 26 U/L Normal <34 [facility] Comment on above: Performed By: #### L [id number], LAB17 ####Material Requisitioner: VELMA VALADEZ ([id number])[facility] ([facility])[address] [place] [address] Bilirubin [Mass/Vol] 0.7 mg/dL Normal <1.2 [facility] Comment on above: Performed By: #### L [id number], LAB17 ####Material Requisitioner: VELMA VALADEZ ([id number])[facility] ([facility])[address] [place] [address] Calcium [Mass/Vol] 9.2 mg/dL Normal 8.8-10.0 [facility] Comment on above: Performed By: #### L [id number], LAB17 ####Material Requisitioner: VELMA VALADEZ ([id number])[facility] ([facility])[address] [place] [address] [place] Chloride [Moles/Vol] 107 mmol/L Normal 98-107 [facility] Comment on above: Performed By: #### L [id number], LAB17 ####Material Requisitioner: VELMA VALADEZ ([id number])[facility] ([facility])[address] [place] [address] [place] CO2 [Moles/Vol] 22 mmol/L Low 23-31 [facility] Comment on above: Performed By: #### L [id number], LAB17 ####Material Requisitioner: VELMA VALADEZ ([id number])[facility] ([facility])[address] [place] [address] Creatinine [Mass/Vol] 0.82 mg/dL Normal 0.57-1.11 [facility] Comment on above: Performed By: #### L [id number], LAB17 ####Material Requisitioner: VELMA VALADEZ ([id number])[facility])[address] [place] [address] GLOMERULAR FILTRATION RATE ML/MIN/1.73 SQ M.PREDICTED 70.6 mL/min/1.73m*2 Normal >60.0 [facility] Comment on above: Result Comment: Calc ulation based on the Chronic Kidney Disease Epidemiology Collaboration (CKD-EPI) equation refit without adjustment for race Performed By: #### L [id number], LAB17 ####Material Requisitioner: VELMA VALADEZ ([id number])[facility] ([facility])[address] [place] [address] Glucose [Mass/Vol] 118 mg/dL High 82-115 [facility] Comment on above: Performed By: #### L [id number], LAB17 ####Material Requisitioner: VELMA VALADEZ ([id number])[facility] ([facility])[address] [place] [address] [place] Potassium [Moles/Vol] 4.3 mmol/L Normal 3.5-5.1 [facility] Comment on above: Result Comment: [facility] potassium values may be up to 0.5 mmol/L lower than serum values. Performed By: #### L [id number], LAB17 ####Material Requisitioner: VELMA VALADEZ ([id number])[facility])[address] [place] [address] Protein [Mass/Vol] 7.0 g/dL Normal 6.4-8.3 [facility] Comment on above: Performed By: #### L [id number], LAB17 ####Material Requisitioner: VELMA VALADEZ ([id number])[address] Sodium [Moles/Vol] 139 mmol/L Normal 136-145 [facility] Comment on above: Performed By: #### L [id number], LAB17 ####Material Requisitioner: VELMA VALADEZ ([id number])[address] Urea nitrogen [Mass/Vol] 13 mg/dL Normal 9-23 [facility] Comment on above: Performed By: #### L [id number], LAB17 ####Material Requisitioner: VELMA VALADEZ ([id number])[address] HEAD NECK ANGIO W AND WO IV CONTRASTon 07-05-2024 CT HEAD NECK ANGIO W AND WO IV CONTRAST Normal [facility] CT HEAD WO IV CONTRASTon CT HEAD WO IV CONTRAST Normal [facility] CT Head WO contraston 2023 Patient Name: MEL CARVER RD : 1940 [facility]#: [id number] Exam Date/Time: 07/05/2024 04:36 Procedure: CT HEAD [...] of the cervica (more content not included)... [facility], Cirilo Khalil MD - 07/05/2024 Patient Name: MEL POP : 1940 [facility]#: [id number] Exam Date/Time: 07/05/2024 04:36 Procedure: CT HEAD [...] acute consolidative process (more content not included)... [facility] CT PERFUSIONon 07-05-2024 CT PERFUSION Normal [facility] CTA Head vessels and Neck ve ssels WO and W contrast Cheryl 07-05-2024 Patient Name: MEL CARVER RD : 1940 [facility]#: [id number] Exam Date/Time: 07/05/2024 04:36 Procedure: CT HEAD [...] Multilevel degenerative chopra (more content not included)... [facility] Cory, Cirilo Khalil MD - 07/05/2024 Patient Name: MEL POP : 1940 [facility]#: [id number] Exam Date/Time: 07/05/2024 04:36 Procedure: CT HEAD [...] no acute conso (more content not included)... [facility] Comprehensive metabolic 1998 panelon 07-05-2024 Albumin [Mass/Vol] 3.6 g/dL 3.4 - 4.8 g/dL [facility] ALP [Catalytic activity/Vol] 94 U/L 40 - 150 U/L [facility] ALT [Catalytic activity/Vol] 23 U/L NINF - 30 U/L [facility] Anion gap [Moles/Vol] 10 mmol/L 3 - 13 mmol/L [facility] AST [Catalytic activity/Vol] 26 U/L NINF - 34 U/L [facility] Bilirubin [Mass/Vol] 0.7 mg/dL NINF - 1.2 mg/dL [facility] Calcium [Mass/Vol] 9.2 mg/dL 8.8 - 10. 0 mg/dL [facility] Chloride [Moles/Vol] 107 mmol/L 98 - 10 7 mmol/L [facility] CO2 [Moles/Vol] 22 mmol/L Low 23 - 31 mmol/L [facility] Creatinine [Mass/Vol] 0.82 mg/dL 0.57 - 1.11 mg/dL [facility] GFR/1.73 sq M.predicted (S/P/Bld) [Vol rate/Area] 70.6 mL/min - PINF [facility] Comment on above: Calculation based on the Chronic Kidney Disease Epidemiology Collaboration (CKD-EPI) equation refit without adjustment for race Glucose [Mass/Vol] 118 mg/dL High 82 - 115 mg/dL [facility] Interpretation and review of laboratory results Abnormal [facility] Potassium [Moles/Vol] 4.3 mmol/L 3.5 - 5.1 mmol/L [facility] Comment on above: Plasma potassium chris ues may be up to 0.5 mmol/L lower than serum values. Protein [Mass/Vol] 7 g/dL 6.4 - 8.3 g/dL [facility] Sodium [Moles/Vol] 139 mmol/L 136 - 145 mmol/L [facility] Urea nitrogen [Mass/Vol] 13 mg/dL 9 - 23 mg/dL [facility] Consulton 07-05-2024 Consult Normal [facility] Consult Normal [facility] Consult Normal [facility] Consult Normal [facility] ECG 12-LEADon 07-05-2024 ECG 12-LEAD IMPRESSION: Atrial fibrillation Electronically Signed On 07-05-2024 12:39:21 EST by Jhonatan Hernandez [facility] ED Nursing Noteon 07-05-[address] Carlson at bedside. [facility] ED Nursing Note Provider notified of patient request for pain meds. [facility] ED Nursing Note Dr. Carlson at bedside [facility] ED Nursing Note Patient is returning back to room 32 at this time with Jose, Medic. [facility] ED Nursing Note Pt emergently going to eye clinic. Pt being transported in wheelchair with trauma float Arin RN and Maritza RN Pt being transported on zoll monitor and acls kit. [facility] ED Nursing Note Ophthalmology at bedside [facility] ED Nursing Note Report to Maritza FRAGA [facility] ED Provider Noteon ED Provider Note [facility] HEMOGLOBIN A1Con 07-05-2024 Glucose [Mass/Vol] 120 mg/dL [facility] Comment on above: Result Comment: BUBBA Garcia COMMENTS:HbA1c values of 5.7-6.4 percent indicate an increased risk for developing diabetes mellitus. HbA1c values greater than or equal to 6.5 percent are diagnostic of diabetes mellitus. For diagnosis of diabetes in individuals without unequivocal hyperglycemia, results should be confirmed by repeat testing. Performed By: #### L AB90 ####Material Requisitioner: VELMA VALADEZ ([id number])[facility])[address] [place] [address] HEMOGLOBIN A1C 5.8 %HbA1C High <5.7 [facility] Comment on above: Result Comment: Norm al less than 5.7%Prediabetes 5.7% to 6.4%Diabetes 6.5% or higher--HgbA1C levels may not be accurate in patients who have renal disease, received recent blood transfusions, are anemic, or who have dyshemoglobinemia. Performed By: #### L AB90 ####Material Requisitioner: VELMA VALADEZ ([id number])[facility] ([facility])[address] [place] [address] [place] HIGH SENSITIVITY TROPONIN, S ERIAL BASELINEon 07-05-2024 TROPONIN HIGH SENSITIVITY BASELINE 14 ng/L Normal <=14 [facility] Comment on above: Performed By: #### L [id number] ####Material Requisitioner: VELMA VALADEZ ([id number])[facility])[address] [place] [address] HIGH SENSITIVITY TROPONIN, S ERIAL, SECOND TESTon 07-05-2024 TROPONIN HS DELTA, BASELINE TO SECOND -5 ng/L Normal <=2 [facility] Comment on above: Result Comment: This [...] further clinical guidance. Performed By: #### L [id number], LAB17 ####Material Requisitioner: VELMA VALADEZ ([id number])[facility] ([facility])[address] [place] [address] TROPONIN HS, SERIAL REFLEX, TEST TWO 9 ng/L Normal <=14 [facility] Comment on above: Performed By: #### L [id number], LAB17 ####Material Requisitioner: VELMA VALADEZ ([id number])[facility])[address] [place] [address] Laboratory - Chemistry and C hemistry - challengeon 07-05-2024 Average glucose Estimated from glycated hemoglobin (Bld) [Mass/Vol] 120 mg/dL [facility] Anion gap (Bld) [Moles/Vol] 8 mmol/L 3.00 - 13.00 [facility] Calcium.ionized (Bld) [Moles/Vol] 4.5 mg/dl 4.30 - 5.20 mg/dl [facility] Comment on above: Performed by [facility] CLIA ID:[id number] [place], [place] Device: [id number] Fire Engine Operator ID: [id number] Chloride [Moles/Vol] 108 mmol/L 98 - 11 4 mmol/L [facility] CO2 [Moles/Vol] 23 mmol/L 21 - 29 mmol/L [facility] Creatinine [Mass/Vol] 0.9 mg/dL 0.6 - 1.3 mg/dL [facility] GFR/1.73 sq M.predicted CKD-EPI (S/P/Bld) [Vol rate/Area] 63.2 [facility] Comment on above: KDIGO guidelines pro vide [...] 104 mg/dL High 70 - 100 mg/dL [facility] Potassium [Moles/Vol] 4.5 mmol/L 3.4 - 5.1 mmol/L [facility] Sodium [Moles/Vol] 139 mmol/L 133 - 145 mmol/L [facility] Urea (Bld) [Mass/Vol] 14 mg/dL 4 - 22 mg/dL [facility] Glucose [Mass/Vol] 104 mg/dL High 70 - 100 mg/dL [facility] Laboratory - Coagulationon 1 09-05-2023 aPTT Coag (PPP) [Time] 30.4 s 20.0 - 30.5 s [facility] INR Coag (PPP) [Relative time] 1 {INR} 0.9 - 1.1 [facility] Comment on above: Recommended Anticoag ulant Therapy: [...] 11.7 s 9.0 - 1 2.0 s [facility] Laboratory - Hematology and Cell countson 07-05-2024 HbA1c (Bld) [Mass fraction] 5.8 % High NINF [facility] Comment on above: Normal less than 5.7 [...] 07/05/2024 12:13 PM [facility] Name: [facility] CARVER RD [facility] 1940 [id number] Exam Date/Time: 07/05/2024 11:45 Procedure: MR BRAIN [...] There is artifact within the right globe. [facility] Ming Fry MD - 07/05/2024 Patient Name: MEL POP : 1940 [facility]#: [id number] Exam Date/Time: 07/05/2024 11:45 Procedure: MR BRAIN [...] Electronically Signed Date/Time: 07/05/2024 12:13 PM EST [facility] Radiology Study observation (narrative) [facility] MR Brain WO contrastOrdered By: Ming Fry on 07-05-2024 [facility] Work Phone: No Panel Informationon 07-05 Heart Rate 59 bpm [facility] P [place] 0 degrees [facility] IL Interval 0 ms [facility] QRS [place] 37 degrees [facility] QRSD Interval 98 ms [facility] QT Interval 423 ms [facility] QTC Interval 418 ms [facility] T Wave [place] 29 degrees [facility] Atrial fibrillation Electronically Signed On 07-05-2024 12:39:21 EST by Jhonatan Hernandez CV Jhonatan Abdi MD - 07/05/2024 IMPRESSION: Atrial fibrillation Electronically Signed On 07-05-2024 12:39:21 EST by Jhonatan Hernandez [facility] Interpretation and review of laboratory results Abnormal [facility] HbA1c values of 5.7- 6.4 percent indicate an increased risk for developing diabetes mellitus. HbA1c values greater than or equal to 6.5 percent are diagnostic of diabetes mellitus. For diagnosis of diabetes in individuals without unequivocal hyperglycemia, results should be confirmed by repeat testing. [facility] Troponin HS Delta, Baseline to Second -5 ng/L NINF - 2 ng/L [facility] Comment on above: This specimen was co [...] Second 9 ng/L NINF - 14 ng/L [facility] 1. No acute intracranial hemorrhage or [...] Report Dictated on Electronically Signed By: Cirilo aRy DR Electronically Signed Date/Time: 07/05/2024 5:03 AM EST [facility] Patient Name: MEL CARVER RD : 1940 [facility]#: [id number] Exam Date/Time: 07/05/2024 04:36 Procedure: CT PERFUSION [...] shift, mass effect, or extra-axial collection. The geogre-white differentiation remains preserved and the basal cisterns [...] the cervical spine. (more content not included)... [facility], Cirilo Khalil MD - 07/05/2024 Patient Name: MEL POP : 1940 [facility]#: [id number] Exam Date/Time: 07/05/2024 04:36 Procedure: CT PERFUSION [...] process or suspici (more content not included)... [facility] Interpretation and review of laboratory results Normal [facility] Troponin HS, Serial Baseline 14 ng/L NINF - 14 ng/L [facility] Interpretation and review of laboratory results Normal [facility] Interpretation and review of laboratory results Abnormal [facility] Performed by: [facility], [address] [place] [address] CLIA ID: [id number] [facility] Radiology Study observation (narrative) [facility] Interpretation and review of laboratory results Abnormal [facility] Performed by: [facility], [address] [place] [address] CLIA ID: [id number] [facility] No Panel InformationOrdered By: Cirilo Ray on 07-05-2024 [facility] Work Phone: PROTIME AND APTTon aPTT Coag (Bld) [Time] 30.4 s Normal 20.0-30.5 [facility] Comment on above: Performed By: #### L [id number] ####Material Requisitioner: VELMA VALADEZ ([id number])[facility] ([facility])[address] [place] [address] INR Coag (PPP) [Relative time] 1.0 {INR} Normal 0.9-1.1 [facility] Comment on above: Result Comment: Timothy [...] prevent Myocardial Infarction Performed By: #### L [id number] ####Material Requisitioner: VELMA VALADEZ ([id number])[facility] ([facility])[address] [place] [address] PT Coag (PPP) [Time] 11.7 s Normal 9.0-12.0 [facility] Comment on above: Performed By: #### L [id number] ####Material Requisitioner: VELMA VALADEZ ([id number])[facility] ([facility])[address] [place] [address] Progress Noteon 07-05-2024 Progress Note Normal [facility] CBC panel Auto (Bld)on 07-02 Erythrocyte distribution width (RBC) [Ratio] 16.9 % High 11.5 - 15.0 % [facility] Hematocrit (Bld) [Volume fraction] 29.6 % Low 36.0 - 46.0 % [facility] Hemoglobin (Bld) [Mass/Vol] 9.3 g/dL Low 11.5 - 15.5 g/dL [facility] Interpretation and review of laboratory results Abnormal [facility] MCH (RBC) [Entitic mass] 26.7 pg 26.0 - 34.0 pg [facility] MCHC (RBC) [Mass/Vol] 31.4 g/dL 30.5 - 36.0 g/dL [facility] MCV (RBC) [Entitic vol] 85.1 fL 80.0 - 100.0 fL [facility] Nucleated RBC (Bld) [#/Vol] NINF [facility] Platelet mean volume (Bld) [Entitic vol] 10.2 fL 9.0 - 12.7 fL [facility] Platelets (Bld) [#/Vol] 324 10*3/uL [facility] RBC (Bld) [#/Vol] 3.48 10*6/uL Low 3.90 - 5.2 0 m/uL [facility] WBC (Bld) [#/Vol] 5.12 10*3/uL [facility] Erythrocyte distribution width (RBC) [Ratio] 16.9 % High 11.5-15.[address] [facility] Comment on above: Order Comment: Speci men Type: BLOOD SPECIMENOrdering Facility: [facility] Address: [address] [place] [address] Performed By: #### 5 8410-2 ####[facility] LABORATORYCLIA [id number] [place] [address] [place] Hematocrit (Bld) [Volume fraction] 29.6 % Low 36.0-46.[address] [facility] Comment on above: Order Comment: Speci men Type: BLOOD SPECIMENOrdering Facility: [facility] Address: [address] [place] [address] Performed By: #### 5 8410-2 ####[facility] LABORATORYCLIA [id number] [place] [address] [place] Hemoglobin (Bld) [Mass/Vol] 9.3 g/dL Low 11.5-15.[address] [facility] Comment on above: Order Comment: Speci men Type: BLOOD SPECIMENOrdering Facility: [facility] Address: [address] [place] [address] Performed By: #### 5 8410-2 ####MOR[facility] LABORATORYCLIA [id number] [address] STATES [facility] MCH (RBC) [Entitic mass] 26.7 pg Normal 26.0-34.[address] [facility] Comment on above: Order Comment: Speci men Type: BLOOD SPECIMENOrdering Facility: [facility] Address: [address] [place] [address] Performed By: #### 5 8410-2 ####[facility] LABORATORYCLIA [id number] [address] MCHC (RBC) [Mass/Vol] 31.4 g/dL Normal 30.5-36.0 [facility] Comment on above: Order Comment: Speci men Type: BLOOD SPECIMENOrdering Facility: [facility] Address: [address] [place] [address] Performed By: #### 5 8410-2 ####MORGAN LABORATORYCLIA [id number] [address] MCV (RBC) [Entitic vol] 85.1 fL Normal 80.0-100.0 [facility] Comment on above: Order Comment: Speci men Type: BLOOD SPECIMENOrdering Facility: [facility] Address: [address] [place] [address] Performed By: #### 5 8410-2 ####MORGAN LABORATORYCLIA [id number] [address] Nucleated RBC (Bld) [#/Vol] 10*3/uL Normal <0.[address] [facility] Comment on above: Order Comment: Speci men Type: BLOOD SPECIMENOrdering Facility: [facility] Address: [address] [place] [address] Performed By: #### 5 8410-2 ####MORGAN LABORATORYCLIA [id number] [address] Platelet mean volume (Bld) [Entitic vol] 10.2 fL Normal 9.0-12.[address] [facility] Comment on above: Order Comment: Speci men Type: BLOOD SPECIMENOrdering Facility: [facility] Address: [address] [place] [address] Performed By: #### 5 8410-2 ####MORGAN LABORATORYCLIA [id number] [address] Platelets (Bld) [#/Vol] 324 10*3/uL Normal 150-[address] [facility] Comment on above: Order Comment: Speci men Type: BLOOD SPECIMENOrdering Facility: [facility] Address: [address] [place] [address] Performed By: #### 5 8410-2 ####MORGAN LABORATORYCLIA [id number] [address] [place] RBC (Bld) [#/Vol] 3.48 10*6/uL Low 3.90-5.20 [facility] Comment on above: Order Comment: Speci men Type: BLOOD SPECIMENOrdering Facility: [facility] Address: [address] [place] [address] Performed By: #### 5 8410-2 ####MORGAN LABORATORYCLIA [id number] [address] STATES OF [facility] WBC (Bld) [#/Vol] 5.12 10*3/uL Normal 3.70-11.00 [facility] Comment on above: Order Comment: Speci men Type: BLOOD SPECIMENOrdering Facility: [facility] Address: [address] [place] [address] Performed By: #### 5 8410-2 ####MORGAN LABORATORYCLIA [id number] [address] [place] CBC panel Auto (Bld)on 06-28 Erythrocyte distribution width (RBC) [Ratio] 16.6 % High 11.5 - 15.0 % [facility] Hematocrit (Bld) [Volume fraction] 28.8 % Low 36.0 - 46.0 % [facility] Hemoglobin (Bld) [Mass/Vol] 9.0 g/dL Low 11.5 - 15.5 g/dL [facility] Interpretation and review of laboratory results Abnormal [facility] MCH (RBC) [Entitic mass] 26.8 pg 26.0 - 34.0 pg [facility] MCHC (RBC) [Mass/Vol] 31.3 g/dL 30.5 - 36.0 g/dL [facility] MCV (RBC) [Entitic vol] 85.7 fL 80.0 - 100.0 fL [facility] Nucleated RBC (Bld) [#/Vol] NINF [facility] Platelet mean volume (Bld) [Entitic vol] 10.5 fL 9.0 - 12.7 fL [facility] Platelets (Bld) [#/Vol] 316 10*3/uL [facility] RBC (Bld) [#/Vol] 3.36 10*6/uL Low 3.90 - 5.2 0 m/uL [facility] WBC (Bld) [#/Vol] 5.27 10*3/uL [facility] Erythrocyte distribution width (RBC) [Ratio] 16.6 % High 11.5-15.[address] [facility] Comment on above: Order Comment: Speci isabella Type: BLOOD SPECIMEN Ordering Facility: [facility] Address: [address] [place] [address] Performed By: #### 2 276-4 #### [facility] CLIA [id number] [address] [place] [address] [place] Hematocrit (Bld) [Volume fraction] 28.8 % Low 36.0-46.[address] [facility] Comment on above: Order Comment: Samiri isabella Type: BLOOD SPECIMEN Ordering Facility: [facility] Address: [address] [place] [address] Performed By: #### 2 276-4 #### [facility] CLIA [id number] [address] [place] [address] [place] Hemoglobin (Bld) [Mass/Vol] 9.0 g/dL Low 11.5-15.[address] [facility] Comment on above: Order Comment: Samiri men Type: BLOOD SPECIMEN Ordering Facility: [facility] Address: [address] [place] [address] Performed By: #### 2 276-4 #### [facility] CLIA [id number] [address] [place] [address] [place] MCH (RBC) [Entitic mass] 26.8 pg Normal 26.0-34.[address] [facility] Comment on above: Order Comment: Speci men Type: BLOOD SPECIMEN Ordering Facility: [facility] Address: [address] [place] [address] Performed By: #### 2 276-4 #### [facility] CLIA [id number] [address] [place] [address] [place] MCHC (RBC) [Mass/Vol] 31.3 g/dL Normal 30.5-36.0 [facility] Comment on above: Order Comment: Speci men Type: BLOOD SPECIMEN Ordering Facility: [facility] Address: [address] [place] [address] Performed By: #### 2 276-4 #### [facility] CLIA [id number] [address] [place] [address] [place] MCV (RBC) [Entitic vol] 85.7 fL Normal 80.0-100.0 [facility] Comment on above: Order Comment: Speci men Type: BLOOD SPECIMEN Ordering Facility: [facility] Address: [address] [place] [address] Performed By: #### 2 276-4 #### [facility] [place] [id number] [address] [place] [address] [place] Nucleated RBC (Bld) [#/Vol] 10*3/uL Normal <0.[address] [facility] Comment on above: Order Comment: Speci men Type: BLOOD SPECIMEN Ordering Facility: [facility] Address: [address] [place] [address] Performed By: #### 2 276-4 #### [facility] CLIA [id number] [address] [place] [address] [place] Platelet mean volume (Bld) [Entitic vol] 10.5 fL Normal 9.0-12.[address] [facility] Comment on above: Order Comment: Speci men Type: BLOOD SPECIMEN Ordering Facility: [facility] Address: [address] [place] [address] Performed By: #### 2 276-4 #### [facility] CLIA [id number] [address] [place] [address] [place] Platelets (Bld) [#/Vol] 316 10*3/uL Normal 150-[address] [facility] Comment on above: Order Comment: Speci men Type: BLOOD SPECIMEN Ordering Facility: [facility] Address: [address] [place] [address] Performed By: #### 2 276-4 #### [facility] CLIA [id number] [address] [place] [address] [place] RBC (Bld) [#/Vol] 3.36 10*6/uL Low 3.90-5.20 [facility] Comment on above: Order Comment: Speci men Type: BLOOD SPECIMEN Ordering Facility: [facility] Address: [address] [place] [address] Performed By: #### 2 276-4 #### [facility] CLIA [id number] [address] [place] [address] [place] WBC (Bld) [#/Vol] 5.27 10*3/uL Normal 3.70-11.00 [facility] Comment on above: Order Comment: Speci men Type: BLOOD SPECIMEN Ordering Facility: [facility] Address: [address] [place] [address] Performed By: #### 2 276-4 #### [facility] CLIA [id number] [address] [place] [address] [place] FERRITINon 06-27-2024 Ferritin [Mass/Vol] 67.5 ng/mL 14.7 - 205.1 ng/mL [facility] Ferritin SerPl-mCncon 2023 Ferritin [Mass/Vol] 67.5 ng/mL Normal 14.7-205.1 [facility] Comment on above: Order Comment: Speci men Type: BLOOD SPECIMEN Ordering Facility: [facility] Address: [address] [place] [address] Performed By: #### 2 276-4 #### [facility] CLIA [id number] [address] [place] [address] [place] Ferritin [Mass/Vol]on 2023 Interpretation and review of laboratory results Normal [facility] Iron and Iron binding capaci ty panelon 06-27-2024 Interpretation and review of laboratory results Abnormal [facility] Iron [Mass/Vol] 30 ug/dL Low 41 - 186 ug/dL [facility] Iron binding capacity [Mass/Vol] 298 ug/dL 232 - 386 ug/dL [facility] Iron/TIBC [Molar ratio] 10.1 % Low 15.0 - 57.0 % [facility] Iron [Mass/Vol] 30 ug/dL Low 41-[address] [facility] Comment on above: Order Comment: Speci men Type: BLOOD SPECIMEN Ordering Facility: [facility] Address: [address] [place] [address] Performed By: #### 2 276-4 #### [facility] CLIA [id number] [address] [place] [address] [place] Iron binding capacity [Mass/Vol] 298 ug/dL Normal 232-[address] [facility] Comment on above: Order Comment: Speci men Type: BLOOD SPECIMEN Ordering Facility: [facility] Address: [address] [place] [address] Performed By: #### 2 276-4 #### [facility] CLIA [id number] [address] [place] [address] [place] Iron/TIBC [Molar ratio] 10.1 % Low 15.0-57.0 [facility] Comment on above: Order Comment: Speci men Type: BLOOD SPECIMEN Ordering Facility: [facility] Address: [address] [place] [address] Performed By: #### 2 276-4 #### [facility] CLIA [id number] [address] [place] [address] [place] CBC panel Auto (Bld)on 06-25 Erythrocyte distribution width (RBC) [Ratio] 15.9 % High 11.5 - 15.0 % [facility] Hematocrit (Bld) [Volume fraction] 28.7 % Low 36.0 - 46.0 % [facility] Hemoglobin (Bld) [Mass/Vol] 9.0 g/dL Low 11.5 - 15.5 g/dL [facility] Interpretation and review of laboratory results Abnormal [facility] MCH (RBC) [Entitic mass] 26.7 pg 26.0 - 34.0 pg [facility] MCHC (RBC) [Mass/Vol] 31.4 g/dL 30.5 - 36.0 g/dL [facility] MCV (RBC) [Entitic vol] 85.2 fL 80.0 - 100.0 fL [facility] Nucleated RBC (Bld) [#/Vol] NINF [facility] Platelet mean volume (Bld) [Entitic vol] 10.8 fL 9.0 - 12.7 fL [facility] Platelets (Bld) [#/Vol] 315 10*3/uL [facility] RBC (Bld) [#/Vol] 3.37 10*6/uL Low 3.90 - 5.2 0 m/uL [facility] WBC (Bld) [#/Vol] 4.96 10*3/uL [facility] Erythrocyte distribution width (RBC) [Ratio] 15.9 % High 11.5-15.[address] [facility] Comment on above: Order Comment: Speci men Type: BLOOD SPECIMEN Ordering Facility: [facility] Address: [address] [place] [address] Performed By: #### 2 4362-6 #### [facility] CLIA [id number] [address] [place] [address] [place] Hematocrit (Bld) [Volume fraction] 28.7 % Low 36.0-46.[address] [facility] Comment on above: Order Comment: Speci men Type: BLOOD SPECIMEN Ordering Facility: [facility] Address: [address] [place] [address] Performed By: #### 2 4362-6 #### [facility] CLIA [id number] [address] [place] [address] [place] Hemoglobin (Bld) [Mass/Vol] 9.0 g/dL Low 11.5-15.[address] [facility] Comment on above: Order Comment: Speci men Type: BLOOD SPECIMEN Ordering Facility: [facility] Address: [address] [place] [address] Performed By: #### 2 4362-6 #### [facility] CLIA [id number] [address] [place] [address] [place] MCH (RBC) [Entitic mass] 26.7 pg Normal 26.0-34.[address] [facility] Comment on above: Order Comment: Speci men Type: BLOOD SPECIMEN Ordering Facility: [facility] Address: [address] [place] [address] Performed By: #### 2 4362-6 #### [facility] CLIA [id number] [address] [place] [address] [place] MCHC (RBC) [Mass/Vol] 31.4 g/dL Normal 30.5-36.0 [facility] Comment on above: Order Comment: Speci men Type: BLOOD SPECIMEN Ordering Facility: [facility] Address: [address] [place] [address] Performed By: #### 2 4362-6 #### [facility] CLIA [id number] [address] [place] [address] [place] MCV (RBC) [Entitic vol] 85.2 fL Normal 80.0-100.0 [facility] Comment on above: Order Comment: Speci men Type: BLOOD SPECIMEN Ordering Facility: [facility] Address: [address] [place] [address] Performed By: #### 2 4362-6 #### [facility] CLIA [id number] [address] [place] [address] [place] Nucleated RBC (Bld) [#/Vol] 10*3/uL Normal <0.[address] [facility] Comment on above: Order Comment: Speci men Type: BLOOD SPECIMEN Ordering Facility: [facility] Address: [address] [place] [address] Performed By: #### 2 4362-6 #### [facility] CLIA [id number] [address] [place] [address] [place] Platelet mean volume (Bld) [Entitic vol] 10.8 fL Normal 9.0-12.[address] [facility] Comment on above: Order Comment: Speci men Type: BLOOD SPECIMEN Ordering Facility: [facility] Address: [address] [place] [address] Performed By: #### 2 4362-6 #### [facility] CLIA [id number] [address] [place] [address] [place] Platelets (Bld) [#/Vol] 315 10*3/uL Normal 150-[address] [facility] Comment on above: Order Comment: Speci men Type: BLOOD SPECIMEN Ordering Facility: [facility] Address: [address] [place] [address] Performed By: #### 2 4362-6 #### [facility] CLIA [id number] [address] [place] [address] [place] RBC (Bld) [#/Vol] 3.37 10*6/uL Low 3.90-5.20 [facility] Comment on above: Order Comment: Speci men Type: BLOOD SPECIMEN Ordering Facility: [facility] Address: [address] [place] [address] Performed By: #### 2 4362-6 #### [facility] CLIA [id number] [address] [place] [address] [place] WBC (Bld) [#/Vol] 4.96 10*3/uL Normal 3.70-11.00 [facility] Comment on above: Order Comment: Speci men Type: BLOOD SPECIMEN Ordering Facility: [facility] Address: [address] [place] [address] Performed By: #### 2 4362-6 #### [facility] CLIA [id number] [address] [place] [address] [place] Basic metabolic 2000 panelon 06-21-2024 Anion gap [Moles/Vol] 12 mmol/L 8 - 15 mmol/L [facility] Calcium [Mass/Vol] 9.3 mg/dL 8.5 - 10. 2 mg/dL [facility] Chloride [Moles/Vol] 108 mmol/L High 98 - 10 7 mmol/L [facility] CO2 [Moles/Vol] 21 mmol/L Low 22 - 30 mmol/L [facility] Creatinine [Mass/Vol] 0.92 mg/dL 0.58 - 0.96 mg/dL [facility] GFR/1.73 sq M.predicted among non-blacks MDRD (S/P/Bld) [Vol rate/Area] 62 mL/min/{1.73_m2} - PINF [facility] Comment on above: Estimated Glomerular [...] 101 mg/dL High 74 - 99 mg/dL [facility] Comment on above: The [place] Diab[employer] Association (ADA) provides guidance for [...] Standards of Medical Care in Diabetes 2016, [place] [employer]. Diabetes Care. 2016.39(Suppl 1). Interpretation and review of laboratory results Abnormal [facility] Potassium [Moles/Vol] 4.6 mmol/L 3.7 - 5.1 mmol/L [facility] Sodium [Moles/Vol] 141 mmol/L 136 - 144 mmol/L [facility] Urea nitrogen [Mass/Vol] 22 mg/dL High 7 - 21 mg/dL [facility] Anion gap [Moles/Vol] 12 mmol/L Normal 8-15 [facility] Comment on above: Order Comment: Speci men Type: BLOOD SPECIMEN Ordering Facility: [facility] Address: [address] [place] [address] Performed By: #### 2 4362-6 #### [facility] CLIA [id number] [address] [place] [address] [place] Calcium [Mass/Vol] 9.3 mg/dL Normal 8.5-10.2 [facility] Comment on above: Order Comment: Speci men Type: BLOOD SPECIMEN Ordering Facility: [facility] Address: [address] [place] [address] Performed By: #### 2 4362-6 #### [facility] CLIA [id number] [address] [place] [address] [place] Chloride [Moles/Vol] 108 mmol/L High 98-107 [facility] Comment on above: Order Comment: Speci men Type: BLOOD SPECIMEN Ordering Facility: [facility] Address: [address] [place] [address] Performed By: #### 2 4362-6 #### [facility] CLIA [id number] [address] [place] [address] [place] CO2 [Moles/Vol] 21 mmol/L Low 22-[address] [facility] Comment on above: Order Comment: Speci men Type: BLOOD SPECIMEN Ordering Facility: [facility] Address: [address] [place] [address] Performed By: #### 2 4362-6 #### [facility] CLIA [id number] [address] [place] [address] [place] Creatinine [Mass/Vol] 0.92 mg/dL Normal 0.58-0.96 [facility] Comment on above: Order Comment: Rhina mason Type: BLOOD SPECIMEN Ordering Facility: [facility] Address: [address] [place] [address] Performed By: #### 2 4362-6 #### [facility] CLIA [id number] [address] [place] [address] [place] Creatinine and Glomerular filtration rate.predicted panel (S/P/Bld) 62 mL/min/1.73m??? Normal >=[address] [facility] Comment on above: Order Comment: Rhina mason Type: BLOOD SPECIMEN Ordering Facility: [facility] Address: [address] [place] [address] Result Comment: Isa mated Glomerular Filtration Rate [...] GFR. Performed By: #### 2 4362-6 #### [facility] CLIA [id number] [address] [place] [address] [place] Glucose [Mass/Vol] 101 mg/dL High 74-99 [facility] Comment on above: Order Comment: Rhina mason Type: BLOOD SPECIMEN Ordering Facility: [facility] Address: [address] [place] [address] Result Comment: The [place] Diabetes Association (ADA) provides guidance for cutoff [...] Standards of Medical Care in Diabetes 2016, [place] [employer]. Diabetes Care. 2016.39(Suppl 1). Performed By: #### 2 4362-6 #### [facility] CLIA [id number] [address] [place] [address] [place] Potassium [Moles/Vol] 4.6 mmol/L Normal 3.7-5.1 [facility] Comment on above: Order Comment: Speci men Type: BLOOD SPECIMEN Ordering Facility: [facility] Address: [address] [place] [address] Performed By: #### 2 4362-6 #### [facility] CLIA [id number] [address] [place] [address] [place] Sodium [Moles/Vol] 141 mmol/L Normal 136-144 [facility] Comment on above: Order Comment: Samiri men Type: BLOOD SPECIMEN Ordering Facility: [facility] Address: [address] [place] [address] Performed By: #### 2 4362-6 #### [facility] CLIA [id number] [address] [place] [address] [place] Urea nitrogen [Mass/Vol] 22 mg/dL High 7-[address] [facility] Comment on above: Order Comment: Speci men Type: BLOOD SPECIMEN Ordering Facility: [facility] Address: [address] [place] [address] Performed By: #### 2 4362-6 #### [facility] CLIA [id number] [address] [place] [address] [place] CBC panel Auto (Bld)on 06-21 Erythrocyte distribution width (RBC) [Ratio] 15.8 % High 11.5 - 15.0 % [facility] Hematocrit (Bld) [Volume fraction] 34.2 % Low 36.0 - 46.0 % [facility] Hemoglobin (Bld) [Mass/Vol] 10.6 g/dL Low 11.5 - 15.5 g/dL [facility] Interpretation and review of laboratory results Abnormal [facility] MCH (RBC) [Entitic mass] 26.4 pg 26.0 - 34.0 pg [facility] MCHC (RBC) [Mass/Vol] 31.0 g/dL 30.5 - 36.0 g/dL [facility] MCV (RBC) [Entitic vol] 85.3 fL 80.0 - 100.0 fL [facility] Nucleated RBC (Bld) [#/Vol] NINF [facility] Platelet mean volume (Bld) [Entitic vol] 10.7 fL 9.0 - 12.7 fL [facility] Platelets (Bld) [#/Vol] 300 10*3/uL [facility] RBC (Bld) [#/Vol] 4.01 10*6/uL 3.90 - 5.2 0 m/uL [facility] WBC (Bld) [#/Vol] 5.52 10*3/uL [facility] Erythrocyte distribution width (RBC) [Ratio] 15.8 % High 11.5-15.[address] [facility] Comment on above: Order Comment: Speci men Type: BLOOD SPECIMEN Ordering Facility: [facility] Address: [address] [place] [address] Performed By: #### 2 4362-6 #### [facility] CLIA [id number] [address] [place] [address] [place] Hematocrit (Bld) [Volume fraction] 34.2 % Low 36.0-46.[address] [facility] Comment on above: Order Comment: Speci men Type: BLOOD SPECIMEN Ordering Facility: [facility] Address: [address] [place] [address] Performed By: #### 2 4362-6 #### [facility] CLIA [id number] [address] [place] [address] [place] Hemoglobin (Bld) [Mass/Vol] 10.6 g/dL Low 11.5-15.[address] [facility] Comment on above: Order Comment: Speci men Type: BLOOD SPECIMEN Ordering Facility: [facility] Address: [address] [place] [address] Performed By: #### 2 4362-6 #### [facility] CLIA [id number] [address] [place] [address] [place] MCH (RBC) [Entitic mass] 26.4 pg Normal 26.0-34.[address] [facility] Comment on above: Order Comment: Speci men Type: BLOOD SPECIMEN Ordering Facility: [facility] Address: [address] [place] [address] Performed By: #### 2 4362-6 #### [facility] CLIA [id number] [address] [place] [address] [place] MCHC (RBC) [Mass/Vol] 31.0 g/dL Normal 30.5-36.0 [facility] Comment on above: Order Comment: Speci men Type: BLOOD SPECIMEN Ordering Facility: [facility] Address: [address] [place] [address] Performed By: #### 2 4362-6 #### [facility] CLIA [id number] [address] [place] [address] [place] MCV (RBC) [Entitic vol] 85.3 fL Normal 80.0-100.0 [facility] Comment on above: Order Comment: Speci men Type: BLOOD SPECIMEN Ordering Facility: [facility] Address: [address] [place] [address] Performed By: #### 2 4362-6 #### [facility] CLIA [id number] [address] [place] [address] [place] Nucleated RBC (Bld) [#/Vol] 10*3/uL Normal <0.[address] [facility] Comment on above: Order Comment: Speci men Type: BLOOD SPECIMEN Ordering Facility: [facility] Address: [address] [place] [address] Performed By: #### 2 4362-6 #### [facility] CLIA [id number] [address] [place] [address] [place] Platelet mean volume (Bld) [Entitic vol] 10.7 fL Normal 9.0-12.[address] [facility] Comment on above: Order Comment: Speci men Type: BLOOD SPECIMEN Ordering Facility: [facility] Address: [address] [place] [address] Performed By: #### 2 4362-6 #### [facility] CLIA [id number] [address] [place] [address] [place] Platelets (Bld) [#/Vol] 300 10*3/uL Normal 150-[address] [facility] Comment on above: Order Comment: Speci men Type: BLOOD SPECIMEN Ordering Facility: [facility] Address: [address] [place] [address] Performed By: #### 2 4362-6 #### [facility] CLIA [id number] [address] [place] [address] [place] RBC (Bld) [#/Vol] 4.01 10*6/uL Normal 3.90-5.20 [facility] Comment on above: Order Comment: Speci men Type: BLOOD SPECIMEN Ordering Facility: [facility] Address: [address] [place] [address] Performed By: #### 2 4362-6 #### [facility] CLIA [id number] [address] [place] [address] [place] WBC (Bld) [#/Vol] 5.52 10*3/uL Normal 3.70-11.00 [facility] Comment on above: Order Comment: Speci men Type: BLOOD SPECIMEN Ordering Facility: [facility] Address: [address] [place] [address] Performed By: #### 2 4362-6 #### [facility] CLIA [id number] [address] [place] [address] [place] Basic metabolic 2000 panelon 06-19-2024 Anion gap [Moles/Vol] 10 mmol/L Normal 8-15 [facility] Comment on above: Order Comment: Speci men Type: BLOOD SPECIMEN Ordering Facility: [facility] Address: [address] [place] [address] Performed By: #### 2 4321-2, 03661-4, #### [facility] CLIA [id number] 1 [place] [address] [place] Calcium [Mass/Vol] 8.9 mg/dL Normal 8.5-10.2 [facility] Comment on above: Order Comment: Speci men Type: BLOOD SPECIMEN Ordering Facility: [facility] Address: [address] [place] [address] Performed By: #### 2 4321-2, 42924-5, #### [facility] CLIA [id number] 1 [place] [address] [place] Chloride [Moles/Vol] 109 mmol/L High 98-107 [facility] Comment on above: Order Comment: Speci men Type: BLOOD SPECIMEN Ordering Facility: [facility] Address: [address] [place] [address] Performed By: #### 2 1-2, 39839-7, #### [facility] CLIA [id number] 1 [place] [address] [place] CO2 [Moles/Vol] 21 mmol/L Low 22-30 [facility] Comment on above: Order Comment: Speci men Type: BLOOD SPECIMEN Ordering Facility: [facility] Address: [address] [place] [address] Performed By: #### 2 4321-2, 41989-5, #### [facility] CLIA [id number] 1 [place] [address] [place] Creatinine [Mass/Vol] 1.04 mg/dL High 0.58-0.96 [facility] Comment on above: Order Comment: Speci men Type: BLOOD SPECIMEN Ordering Facility: [facility] Address: [address] [place] [address] Performed By: #### 2 4321-2, 28435-8, #### [facility] CLIA [id number] [address] Creatinine and Glomerular filtration rate.predicted panel (S/P/Bld) 53 mL/min/1.73m??? Low >=60 [facility] Comment on above: Order Comment: Rhina mason Type: BLOOD SPECIMEN Ordering Facility: [facility] Address: [address] [place] [address] Result Comment: Isa mated Glomerular Filtration Rate [...] actual GFR. Performed By: #### 2 4321-2, 16775-4, #### [facility] CLIA [id number] [address] STATES OF [facility] Glucose [Mass/Vol] 103 mg/dL High 74-99 [facility] Comment on above: Order Comment: Rhina mason Type: BLOOD SPECIMEN Ordering Facility: [facility] Address: [address] [place] [address] Result Comment: The [place] Diabetes Association (ADA) provides guidance for cutoff [...] Standards of Medical Care in Diabetes 2016, [place] [employer]. Diabetes Care. 2016.39(Suppl 1). Performed By: #### 2 4321-2, 61582-2, #### [facility] CLIA [id number] [address] [place] Potassium [Moles/Vol] 4.8 mmol/L Normal 3.7-5.1 [facility] Comment on above: Order Comment: Speci men Type: BLOOD SPECIMEN Ordering Facility: [facility] Address: [address] [place] [address] Performed By: #### 2 4321-2, 08578-7, #### [facility] CLIA [id number] [address] [place] Sodium [Moles/Vol] 140 mmol/L Normal 136-144 [facility] Comment on above: Order Comment: Speci men Type: BLOOD SPECIMEN Ordering Facility: [facility] Address: [address] [place] [address] Performed By: #### 2 4321-2, 34974-2, #### [facility] CLIA [id number] [address] [place] Urea nitrogen [Mass/Vol] 25 mg/dL High 7-21 [facility] Comment on above: Order Comment: Speci men Type: BLOOD SPECIMEN Ordering Facility: [facility] Address: [address] [place] [address] Performed By: #### 2 4321-2, 49482-7, #### [facility] CLIA [id number] [address] [place] CBC panel Auto (Bld)on 06-19 Erythrocyte distribution width (RBC) [Ratio] 15.9 % High 11.5-15.0 [facility] Comment on above: Order Comment: Speci men Type: BLOOD SPECIMEN Ordering Facility: [facility] Address: [address] [place] [address] Performed By: #### 2 4321-2, 30530-4, #### [facility] CLIA [id number] [address] [place] Hematocrit (Bld) [Volume fraction] 30.6 % Low 36.0-46.0 [facility] Comment on above: Order Comment: Speci men Type: BLOOD SPECIMEN Ordering Facility: [facility] Address: [address] [place] [address] Performed By: #### 2 4321-2, 54634-8, #### [facility] CLIA [id number] [address] STATES OF [facility] Hemoglobin (Bld) [Mass/Vol] 9.5 g/dL Low 11.5-15.5 [facility] Comment on above: Order Comment: Speci men Type: BLOOD SPECIMEN Ordering Facility: [facility] Address: [address] [place] [address] Performed By: #### 2 4321-2, 94167-9, #### [facility] CLIA [id number] [address] STATES OF [facility] MCH (RBC) [Entitic mass] 26.5 pg Normal 26.0-34.0 [facility] Comment on above: Order Comment: Speci men Type: BLOOD SPECIMEN Ordering Facility: [facility] Address: [address] [place] [address] Performed By: #### 2 4321-2, 43380-6, #### [facility] CLIA [id number] [address] STATES OF [facility] MCHC (RBC) [Mass/Vol] 31.0 g/dL Normal 30.5-36.0 [facility] Comment on above: Order Comment: Speci men Type: BLOOD SPECIMEN Ordering Facility: [facility] Address: [address] [place] [address] Performed By: #### 2 4321-2, 19242-4, #### [facility] CLIA [id number] [address] MCV (RBC) [Entitic vol] 85.5 fL Normal 80.0-100.0 [facility] Comment on above: Order Comment: Speci men Type: BLOOD SPECIMEN Ordering Facility: [facility] Address: [address] [place] [address] Performed By: #### 2 4321-2, 16129-9, #### [facility] CLIA [id number] [address] [place] Nucleated RBC (Bld) [#/Vol] 10*3/uL Normal <0.01 [facility] Comment on above: Order Comment: Speci men Type: BLOOD SPECIMEN Ordering Facility: [facility] Address: [address] [place] [address] Performed By: #### 2 4321-2, 50486-2, #### [facility] CLIA [id number] [address] [place] Platelet mean volume (Bld) [Entitic vol] 10.4 fL Normal 9.0-12.7 [facility] Comment on above: Order Comment: Speci men Type: BLOOD SPECIMEN Ordering Facility: [facility] Address: [address] [place] [address] Performed By: #### 2 4321-2, 75385-2, #### [facility] CLIA [id number] [address] Platelets (Bld) [#/Vol] 245 10*3/uL Normal 150-400 [facility] Comment on above: Order Comment: Speci men Type: BLOOD SPECIMEN Ordering Facility: [facility] Address: [address] [place] [address] Performed By: #### 2 4321-2, 69686-3, #### [facility] CLIA [id number] [address] [place] RBC (Bld) [#/Vol] 3.58 10*6/uL Low 3.90-5.20 [facility] Comment on above: Order Comment: Speci men Type: BLOOD SPECIMEN Ordering Facility: [facility] Address: [address] [place] [address] Performed By: #### 2 4321-2, 20070-0, #### [facility] CLIA [id number] 1 [place] [address] [place] WBC (Bld) [#/Vol] 4.67 10*3/uL Normal 3.70-11.00 [facility] Comment on above: Order Comment: Speci men Type: BLOOD SPECIMEN Ordering Facility: [facility] Address: [address] [place] [address] Performed By: #### 2 4321-2, 36441-3, 90960-6 #### [facility] CLIA [id number] [address] [place] [id number] [facility] [place] CNDSon 06-19-2024 CNDS HNO ID: [id number] Author: DON EDWARDS DO Service: Hospital Medicine [...] eliquis. She was seen by therapy and jail facility was recommended. He slowly was improving. She was discharged to jail facility in stable condition. OTHER PROBLEMS/DIAGNOSIS: Principal [...] call for appointment?: Yes Jared Evans MD [phone] [address] [facility] [address] PCP Requested Referral Follow-Up Appointment When: In 2 weeks Patient/Parents to call for appointment?: Yes Hermila Padilla MD [phone] [place] [address] PCP Requested Referral Follow-Up Appointment For hydronephrosis and renal lesion When: In 2 weeks Patient/Parents to call for appointment?: Yes Mikhail Vuong Jr., MD [phone] [address] [place] [address] PCP Requested Referral Follow-Up Appointment With: neurology When: In 4 weeks Patient/Parents to call for appointment?: Yes Additional Provider to Provider Information: Treatment Team: Attending Provider: Don Edwards DO Consulting: Pratibha Logan MD Consulting: Torsten Silva MD Primary Service: BLAS ALVAREZ [facility] Critical Issues: SPECIALIST FOLLOW-UP: urology, cardiology, neurology LABS AND PROCEDURES PENDING AT DISCHARGE: No pending results. FOLLOW-UP APPOINTMENTS ALREADY SCHEDULED WITH A [facility] PROVIDER: No future appointments. Discharge Information Row Name ED to Hosp-Admission (Current) from 06/10/2024 in [place] [address] NEURO/CARD Rehab Facility Agency [facility] ALLERGIES Allergen Reactions Percocet [Oxycodone* Itching DISCHARGE MEDICA (more content not included)... Normal [facility] Basic metabolic 2000 panelon 06-18-2024 Anion gap [Moles/Vol] 10 mmol/L Normal 8-15 [facility] Comment on above: Order Comment: Speci men Type: BLOOD SPECIMEN Ordering Facility: [facility] Address: [address] [place] [address] Performed By: #### 2 4321-2, 53323-4, #### [facility] CLIA [id number] 1 [place] [address] [place] Calcium [Mass/Vol] 8.9 mg/dL Normal 8.5-10.2 [facility] Comment on above: Order Comment: Speci men Type: BLOOD SPECIMEN Ordering Facility: [facility] Address: [address] [place] [address] Performed By: #### 2 4321-2, 18957-8, #### [facility] CLIA [id number] 1 [place] [address] [place] Chloride [Moles/Vol] 110 mmol/L High 98-107 [facility] Comment on above: Order Comment: Speci men Type: BLOOD SPECIMEN Ordering Facility: [facility] Address: [address] [place] [address] Performed By: #### 2 4321-2, 84119-6, #### [facility] CLIA [id number] 1 [place] [address] [place] CO2 [Moles/Vol] 21 mmol/L Low 22-30 [facility] Comment on above: Order Comment: Speci men Type: BLOOD SPECIMEN Ordering Facility: [facility] Address: [address] [place] [address] Performed By: #### 2 4321-2, 82016-4, #### [facility] CLIA [id number] [address] [place] Creatinine [Mass/Vol] 0.96 mg/dL Normal 0.58-0.96 [facility] Comment on above: Order Comment: Speci men Type: BLOOD SPECIMEN Ordering Facility: [facility] Address: [address] [place] [address] Performed By: #### 2 4321-2, 80732-3, #### [facility] CLIA [id number] [address] Creatinine and Glomerular filtration rate.predicted panel (S/P/Bld) 58 mL/min/1.73m??? Low >=60 [facility] Comment on above: Order Comment: Speci isabella Type: BLOOD SPECIMEN Ordering Facility: [facility] Address: [address] [place] [address] Result Comment: Isa mated Glomerular Filtration Rate [...] actual GFR. Performed By: #### 2 4321-2, 59306-5, #### [facility] CLIA [id number] [address] [place] Glucose [Mass/Vol] 112 mg/dL High 74-99 [facility] Comment on above: Order Comment: Speci men Type: BLOOD SPECIMEN Ordering Facility: [facility] Address: [address] [place] [address] Result Comment: The [place] Diabetes Association (ADA) provides guidance for cutoff [...] Standards of Medical Care in Diabetes 2016, [place] [employer]. Diabetes Care. 2016.39(Suppl 1). Performed By: #### 2 4321-2, 11667-7, #### [employer] [facility] CLIA [id number] 1 [place] [address] [place] Potassium [Moles/Vol] 4.4 mmol/L Normal 3.7-5.1 [facility] Comment on above: Order Comment: Speci men Type: BLOOD SPECIMEN Ordering Facility: [facility] Address: [address] [place] [address] Performed By: #### 2 4321-2, 30019-3, #### [facility] CLIA [id number] 1 [place] [address] [place] Sodium [Moles/Vol] 141 mmol/L Normal 136-144 [facility] Comment on above: Order Comment: Speci men Type: BLOOD SPECIMEN Ordering Facility: [facility] Address: [address] [place] [address] Performed By: #### 2 4321-2, 01532-3, #### [employer] [facility] CLIA [id number] 1 [place] [address] [place] Urea nitrogen [Mass/Vol] 22 mg/dL High 7-21 [facility] Comment on above: Order Comment: Speci men Type: BLOOD SPECIMEN Ordering Facility: [facility] Address: [address] [place] [address] Performed By: #### 2 4321-2, 31577-1, 98657-6 #### [facility] CLIA [id number] [address] CBC panel Auto (Bld)on 06-18 Erythrocyte distribution width (RBC) [Ratio] 15.9 % High 11.5-15.0 [facility] Comment on above: Order Comment: Speci men Type: BLOOD SPECIMENOrdering Facility: [facility] Address: [address] [place] [address] Performed By: #### 5 8410-2 ####[facility] [id number] [address] OF [facility] Hematocrit (Bld) [Volume fraction] 34.3 % Low 36.0-46.0 [facility] Comment on above: Order Comment: Speci men Type: BLOOD SPECIMENOrdering Facility: [facility] Address: [address] [place] [address] Performed By: #### 5 8410-2 ####[facility] [id number] [address] OF [facility] Hemoglobin (Bld) [Mass/Vol] 10.7 g/dL Low 11.5-15.5 [facility] Comment on above: Order Comment: Speci men Type: BLOOD SPECIMENOrdering Facility: [facility] Address: [address] [place] [address] Performed By: #### 5 8410-2 ####[facility] [id number] [address] STATES [facility] MCH (RBC) [Entitic mass] 26.7 pg Normal 26.0-34.0 [facility] Comment on above: Order Comment: Speci men Type: BLOOD SPECIMENOrdering Facility: [facility] Address: [address] [place] [address] Performed By: #### 5 8410-2 ####[facility] [id number] [place] [address] [place] MCHC (RBC) [Mass/Vol] 31.2 g/dL Normal 30.5-36.0 [facility] Comment on above: Order Comment: Speci men Type: BLOOD SPECIMENOrdering Facility: [facility] Address: [address] [place] [address] Performed By: #### 5 8410-2 ####[facility] [id number] [address] [place] MCV (RBC) [Entitic vol] 85.5 fL Normal 80.0-100.0 [facility] Comment on above: Order Comment: Speci men Type: BLOOD SPECIMENOrdering Facility: [facility] Address: [address] [place] [address] Performed By: #### 5 8410-2 ####[facility] [id number] [address] Nucleated RBC (Bld) [#/Vol] 10*3/uL Normal <0.01 [facility] Comment on above: Order Comment: Speci men Type: BLOOD SPECIMENOrdering Facility: [facility] Address: [address] [place] [address] Performed By: #### 5 8410-2 ####[facility] [id number] [address] STATES OF [facility] Platelet mean volume (Bld) [Entitic vol] 10.0 fL Normal 9.0-12.7 [facility] Comment on above: Order Comment: Speci men Type: BLOOD SPECIMENOrdering Facility: [facility] Address: [address] [place] [address] Performed By: #### 5 8410-2 ####[facility] [id number] [address] [place] Platelets (Bld) [#/Vol] 273 10*3/uL Normal 150-400 [facility] Comment on above: Order Comment: Speci men Type: BLOOD SPECIMENOrdering Facility: [facility] Address: [address] [place] [address] Performed By: #### 5 8410-2 ####[facility] [id number] [address] [place] RBC (Bld) [#/Vol] 4.01 10*6/uL Normal 3.90-5.20 [facility] Comment on above: Order Comment: Speci men Type: BLOOD SPECIMENOrdering Facility: [facility] Address: [address] [place] [address] Performed By: #### 5 8410-2 ####[facility] [id number] [address] STATES OF [facility] WBC (Bld) [#/Vol] 5.29 10*3/uL Normal 3.70-11.00 [facility] Comment on above: Order Comment: Speci men Type: BLOOD SPECIMENOrdering Facility: [facility] Address: [address] [place] [address] Performed By: #### 5 8410-2 ####[facility] [id number] [address] Hepatic function 2000 panelo n 06-18-2024 Albumin [Mass/Vol] 3.5 g/dL Low 3.9-4.9 [facility] Comment on above: Order Comment: Speci men Type: BLOOD SPECIMEN [facility] Address: [address] [place] [address] Performed By: #### 2 4321-2, 44891-6, #### [facility] CLIA [id number] [address] ALP [Catalytic activity/Vol] 80 U/L Normal 34-123 [facility] Comment on above: Order Comment: Speci men Type: BLOOD SPECIMEN [facility] Address: [address] [place] [address] Performed By: #### 2 4321-2, 15710-1, #### [facility] CLIA [id number] [address] ALT With P-5'-P [Catalytic activity/Vol] 16 U/L Normal 7-38 [facility] Comment on above: Order Comment: Speci men Type: BLOOD SPECIMEN [facility] Address: [address] [place] [address] Performed By: #### 2 4321-2, 00474-7, #### [facility] CLIA [id number] [address] OF [facility] AST With P-5'-P [Catalytic activity/Vol] 20 U/L Normal 13-35 [facility] Comment on above: Order Comment: Speci men Type: BLOOD SPECIMEN [facility] Address: [address] [place] [address] Performed By: #### 2 4321-2, 05162-1, #### [facility] CLIA [id number] [address] OF [facility] Bilirubin [Mass/Vol] 0.3 mg/dL Normal 0.2-1.3 [facility] Comment on above: Order Comment: Speci men Type: BLOOD SPECIMEN [facility] Address: [address] [place] [address] Performed By: #### 2 4321-2, 52422-0, #### [facility] CLIA [id number] [address] Bilirubin.conjugated [Mass/Vol] mg/dL Normal <0.2 [facility] Comment on above: Order Comment: Speci men Type: BLOOD SPECIMEN [facility] Address: [address] [place] [address] Performed By: #### 2 4321-2, 43173-6, #### [facility] CLIA [id number] [address] OF [facility] Protein [Mass/Vol] 6.0 g/dL Low 6.3-8.0 [facility] Comment on above: Order Comment: Speci men Type: BLOOD SPECIMEN [facility] Address: [address] [place], [place] [address] [address] Performed By: #### 2 4321-2, 76023-7, #### [facility] CLIA [id number] [address] [place] [id number] [facility] Magnesium SerPl-mCncon 06-18 Magnesium [Mass/Vol] 1.9 mg/dL Normal 1.7-2.3 [facility] Comment on above: Order Comment: Speci men Type: BLOOD SPECIMEN [facility] Address: [address] [place] [id number] Performed By: #### 2 4321-2, 05572-8, #### [facility] CLIA [id number] [address] [place] [id number] [facility] NUTRITIONon 06-18-2024 NUTRITION HNO ID: [id number] Author: NEL[address] Service: Nutrition Therapy [...] From: Patient Weight Change: 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(s) (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 THERAPY NTon 06-18-2024 THERAPY NT HNO ID: [id number] Author: SELENA BARR, PT Service: Physical Therapy Author Type: Physical Therapist Type: Therapy (PT/OT/Speech/Resp) Filed: 06/18/2024 12:53 Note Text: Physical Therapy Treatment Summary SERVICE DATE: 06/18/2024 SERVICE TIME: 1056 to 1129 ROOM: [place] [address] PT 6 Clicks Score: 16 DISCHARGE RECOMMENDATIONS [...] Lack of coordination-other TREATMENT INTERVENTIONS Therapeutic Activity (61358) Therapeutic Activity (49517) Treatment Minutes: 25 $ Therapeutic Activity (92091) Billed Units: 2 units Timed Code Treatment [...] (more content not included)... Normal [facility] THERAPY NT HNO ID: [id number] Author: ULI JEFFERSON OTR/[place] Service: Occupational Therapy Author Type: Occupational Therapist Type: Therapy (PT/OT/Speech/Resp) Filed: 06/18/2024 13:34 Note Text: Occupational Therapy Treatment Summary SERVICE DATE: 06/18/2024 SERVICE TIME: 1130 to 1154 ROOM: [id number] OT 6 Clicks Score: 15 [...] and signs-other TREATMENT INTERVENTIONS Self Half-Way Management (26805), Cognitive Training (92084 and 90031) Timed Code Treatment (minutes): 24 Skilled Treatment Time (minutes): 24 Self Half-Way Management (16943) Treatment Minutes: 11 $ Self Half-Way Management (48205) Billed Units: 1 unit Minimal assist with meal set-up. Cueing for physical assist with maintaining functional grasp on packaging to tear open. Pt demonstrated impaired hand-eye coordination/visual spatial awareness with bringing food to mouth. Provided further cueing and tactile awareness/sequencing to maximize ease with self feeding. Cognitive Training First 15 Minutes (05478) : 13 $ Cognitive Training First 15 Minutes (04218) Billed Units: 1 unit Facilitated completion of [...] Occupational Therapy, Safety/Judgment, Sitting Balance to Improve [place] with ADLs/Self-Care, Cognitive Skills, Command Following, Expected Functional Level, Feeding Tasks, Low Vision Strategies, Positioning, Visual Scanning/Attention Activities THERAPEUTIC SKILLS USED Activity Dosing, Cues for (more content not included)... Normal [facility] CBC panel Auto (Bld)on 06-17 Erythrocyte distribution width (RBC) [Ratio] 15.7 % High 11.5-15.0 [facility] Comment on above: Order Comment: Speci men Type: BLOOD SPECIMEN [facility] Address: [address] [place] [address] Performed By: #### 2 4321-2, 85497-8, #### [facility] CLIA [id number] [address] [place] Hematocrit (Bld) [Volume fraction] 35.1 % Low 36.0-46.0 [facility] Comment on above: Order Comment: Speci men Type: BLOOD SPECIMEN Ordering Facility: [facility] Address: [address] [place] [address] Performed By: #### 2 4321-2, 93667-0, #### [facility] CLIA [id number] [address] [place] Hemoglobin (Bld) [Mass/Vol] 11.0 g/dL Low 11.5-15.5 [facility] Comment on above: Order Comment: Speci men Type: BLOOD SPECIMEN Ordering Facility: [facility] Address: [address] [place] [address] Performed By: #### 2 4321-2, 45164-9, #### [facility] CLIA [id number] [address] [place] MCH (RBC) [Entitic mass] 26.4 pg Normal 26.0-34.0 [facility] Comment on above: Order Comment: Speci men Type: BLOOD SPECIMEN Ordering Facility: [facility] Address: [address] [place] [address] Performed By: #### 2 4321-2, 77717-4, #### [facility] CLIA [id number] [address] [place] MCHC (RBC) [Mass/Vol] 31.3 g/dL Normal 30.5-36.0 [facility] Comment on above: Order Comment: Speci men Type: BLOOD SPECIMEN Ordering Facility: [facility] Address: [address] [place] [address] Performed By: #### 2 4321-2, 03564-7, #### [facility] CLIA [id number] [address] MCV (RBC) [Entitic vol] 84.4 fL Normal 80.0-100.0 [facility] Comment on above: Order Comment: Speci men Type: BLOOD SPECIMEN Ordering Facility: [facility] Address: [address] [place] [address] Performed By: #### 2 4321-2, 67874-6, #### [facility] CLIA [id number] [address] Nucleated RBC (Bld) [#/Vol] 10*3/uL Normal <0.01 [facility] Comment on above: Order Comment: Speci men Type: BLOOD SPECIMEN Ordering Facility: [facility] Address: [address] [place] [address] Performed By: #### 2 4321-2, 29035-5, #### [facility] CLIA [id number] [address] Platelet mean volume (Bld) [Entitic vol] 10.1 fL Normal 9.0-12.7 [facility] Comment on above: Order Comment: Speci men Type: BLOOD SPECIMEN Ordering Facility: [facility] Address: [address] [place] [address] Performed By: #### 2 4321-2, 10380-5, #### [facility] CLIA [id number] [address] [place] Platelets (Bld) [#/Vol] 294 10*3/uL Normal 150-400 [facility] Comment on above: Order Comment: Speci men Type: BLOOD SPECIMEN Ordering Facility: [facility] Address: [address] [place] [address] Performed By: #### 2 4321-2, 72242-0, #### [facility] CLIA [id number] [address] [place] RBC (Bld) [#/Vol] 4.16 10*6/uL Normal 3.90-5.20 [facility] Comment on above: Order Comment: Speci men Type: BLOOD SPECIMEN Ordering Facility: [facility] Address: [address] [place] [address] Performed By: #### 2 4321-2, 56852-0, #### [facility] CLIA [id number] [address] [place] WBC (Bld) [#/Vol] 5.63 10*3/uL Normal 3.70-11.00 [facility] Comment on above: Order Comment: Speci men Type: BLOOD SPECIMEN Ordering Facility: [facility] Address: [address] [place] [address] Performed By: #### 2 4321-2, 79238-1, #### [facility] CLIA [id number] [address] OF [facility] CBC panel Auto (Bld)on 06-16 Erythrocyte distribution width (RBC) [Ratio] 15.4 % High 11.5-15.0 [facility] Comment on above: Order Comment: Speci men Type: BLOOD SPECIMEN Ordering Facility: [facility] Address: [address] [place] [address] Performed By: #### 2 4321-2, 56050-9, #### [facility] CLIA [id number] [address] Hematocrit (Bld) [Volume fraction] 34.9 % Low 36.0-46.0 [facility] Comment on above: Order Comment: Speci men Type: BLOOD SPECIMEN Ordering Facility: [facility] Address: [address] [place] [address] Performed By: #### 2 4321-2, 12273-2, #### [facility] CLIA [id number] [address] Hemoglobin (Bld) [Mass/Vol] 10.9 g/dL Low 11.5-15.5 [facility] Comment on above: Order Comment: Speci men Type: BLOOD SPECIMEN Ordering Facility: [facility] Address: [address] [place] [address] Performed By: #### 2 4321-2, 81799-8, #### [facility] CLIA [id number] [address] MCH (RBC) [Entitic mass] 26.4 pg Normal 26.0-34.0 [facility] Comment on above: Order Comment: Speci men Type: BLOOD SPECIMEN Ordering Facility: [facility] Address: [address] [place] [address] Performed By: #### 2 4321-2, 30282-0, #### [facility] CLIA [id number] [address] MCHC (RBC) [Mass/Vol] 31.2 g/dL Normal 30.5-36.0 [facility] Comment on above: Order Comment: Speci men Type: BLOOD SPECIMEN Ordering Facility: [facility] Address: [address] [place] [address] Performed By: #### 2 4321-2, 89716-3, #### [facility] CLIA [id number] [address] MCV (RBC) [Entitic vol] 84.5 fL Normal 80.0-100.0 [facility] Comment on above: Order Comment: Speci men Type: BLOOD SPECIMEN Ordering Facility: [facility] Address: [address] [place] [address] Performed By: #### 2 4321-2, 82993-4, #### [facility] CLIA [id number] 1 [place] [address] [place] Nucleated RBC (Bld) [#/Vol] 10*3/uL Normal <0.01 [facility] Comment on above: Order Comment: Speci men Type: BLOOD SPECIMEN Ordering Facility: [facility] Address: [address] [place] [address] Performed By: #### 2 1-2, 71960-7, #### [facility] CLIA [id number] 1 [place] [address] [place] Platelet mean volume (Bld) [Entitic vol] 9.8 fL Normal 9.0-12.7 [facility] Comment on above: Order Comment: Speci men Type: BLOOD SPECIMEN Ordering Facility: [facility] Address: [address] [place] [address] Performed By: #### 2 4320-2, 64881-6, #### [facility] CLIA [id number] [address] [place] Platelets (Bld) [#/Vol] 274 10*3/uL Normal 150-400 [facility] Comment on above: Order Comment: Speci men Type: BLOOD SPECIMEN Ordering Facility: [facility] Address: [address] [place] [address] Performed By: #### 2 4320-2, 32350-0, #### [facility] CLIA [id number] 1 [place] [address] [place] RBC (Bld) [#/Vol] 4.13 10*6/uL Normal 3.90-5.20 [facility] Comment on above: Order Comment: Speci men Type: BLOOD SPECIMEN Ordering Facility: [facility] Address: [address] [place] [address] Performed By: #### 2 1-2, 27828-6, #### [facility] CLIA [id number] 1 [place] [address] [place] WBC (Bld) [#/Vol] 6.06 10*3/uL Normal 3.70-11.00 [facility] Comment on above: Order Comment: Speci men Type: BLOOD SPECIMEN Ordering Facility: [facility] Address: [address] [place] [address] Performed By: #### 2 4321-2, 92340-2, #### [facility] CLIA [id number] [address] CBC panel Auto (Bld)on 06-15 Erythrocyte distribution width (RBC) [Ratio] 15.4 % High 11.5-15.0 [facility] Comment on above: Order Comment: Speci men Type: BLOOD SPECIMEN Ordering Facility: [facility] Address: [address] [place] [address] Performed By: #### 2 4321-2, 41694-3, #### [facility] CLIA [id number] [address] Hematocrit (Bld) [Volume fraction] 33.9 % Low 36.0-46.0 [facility] Comment on above: Order Comment: Speci men Type: BLOOD SPECIMEN Ordering Facility: [facility] Address: [address] [place] [address] Performed By: #### 2 4321-2, 81440-6, #### [facility] CLIA [id number] [address] OF [facility] Hemoglobin (Bld) [Mass/Vol] 10.6 g/dL Low 11.5-15.5 [facility] Comment on above: Order Comment: Speci men Type: BLOOD SPECIMEN Ordering Facility: [facility] Address: [address] [place] [address] Performed By: #### 2 4321-2, 29007-8, #### [facility] CLIA [id number] [address] MCH (RBC) [Entitic mass] 26.2 pg Normal 26.0-34.0 [facility] Comment on above: Order Comment: Speci men Type: BLOOD SPECIMEN Ordering Facility: [facility] Address: [address] [place] [address] Performed By: #### 2 1-2, 62783-7, #### [facility] CLIA [id number] [address] MCHC (RBC) [Mass/Vol] 31.3 g/dL Normal 30.5-36.0 [facility] Comment on above: Order Comment: Speci men Type: BLOOD SPECIMEN Ordering Facility: [facility] Address: [address] [place] [address] Performed By: #### 2 4321-2, 14390-5, #### [facility] CLIA [id number] [address] OF [facility] MCV (RBC) [Entitic vol] 83.9 fL Normal 80.0-100.0 [facility] Comment on above: Order Comment: Speci men Type: BLOOD SPECIMEN Ordering Facility: [facility] Address: [address] [place] [address] Performed By: #### 2 1-2, 68110-8, #### [facility] CLIA [id number] [address] OF [facility] Nucleated RBC (Bld) [#/Vol] 10*3/uL Normal <0.01 [facility] Comment on above: Order Comment: Speci men Type: BLOOD SPECIMEN Ordering Facility: [facility] Address: [address] [place] [address] Performed By: #### 2 4321-2, 10881-5, #### [facility] CLIA [id number] [address] Platelet mean volume (Bld) [Entitic vol] 9.9 fL Normal 9.0-12.7 [facility] Comment on above: Order Comment: Speci men Type: BLOOD SPECIMEN Ordering Facility: [facility] Address: [address] [place] [address] Performed By: #### 2 4321-2, 61302-2, 09466-9 #### [facility] CLIA [id number] [address] Platelets (Bld) [#/Vol] 280 10*3/uL Normal 150-400 [facility] Comment on above: Order Comment: Speci men Type: BLOOD SPECIMEN Ordering Facility: [facility] Address: [address] [place] [address] Performed By: #### 2 4321-2, 52290-2, #### [facility] CLIA [id number] [address] RBC (Bld) [#/Vol] 4.04 10*6/uL Normal 3.90-5.20 [facility] Comment on above: Order Comment: Speci men Type: BLOOD SPECIMEN Ordering Facility: [facility] Address: [address] [place] [address] Performed By: #### 2 4321-2, 03931-5, #### [facility] CLIA [id number] [address] WBC (Bld) [#/Vol] 5.80 10*3/uL Normal 3.70-11.00 [facility] Comment on above: Order Comment: Speci men Type: BLOOD SPECIMEN Ordering Facility: [facility] Address: [address] [place] [address] Performed By: #### 2 4321-2, 32072-2, #### [facility] CLIA [id number] [address] THERAPY NTon 06-15-2024 THERAPY NT HNO ID: [id number] Author: MEHREEN MANCERA PT Service: Physical Therapy Author Type: Physical Therapist Type: Therapy (PT/OT/Speech/Resp) Filed: 06/15/2024 16:13 Note Text: Physical Therapy Treatment Summary SERVICE DATE: 06/15/2024 SERVICE TIME: 1518 to 1547 ROOM: [id number] PT 6 Clicks Score: 13 DISCHARGE RECOMMENDATIONS [...] Lack of coordination-other TREATMENT INTERVENTIONS Therapeutic Activity (59464), Neuromuscular Reeducation (27791) Timed Code Treatment (minutes): 29 Skilled Treatment Time (minutes): 29 Therapeutic Activity (27499) Treatment Minutes: 10 $ Therapeutic Activity (25197) Billed Units: 1 unit Neuromuscular Reeducation (67122) Treatment Minutes: 19 $ Neuromuscular Reeducation (52243) Billed Units: 1 unit Sitting balance and [...] (more content not included)... Normal [facility] CBC panel Auto (Bld)on 06-14 Erythrocyte distribution width (RBC) [Ratio] 15.5 % High 11.5-15.0 [facility] Comment on above: Order Comment: Speci men Type: BLOOD SPECIMENOrdering Facility: [facility] Address: [address] [place] [address] Performed By: #### 5 8410-2 ####[facility] [id number] [address] OF [facility] Hematocrit (Bld) [Volume fraction] 34.8 % Low 36.0-46.0 [facility] Comment on above: Order Comment: Speci men Type: BLOOD SPECIMENOrdering Facility: [facility] Address: [address] [place] [address] Performed By: #### 5 8410-2 ####[facility] [id number] [address] OF [facility] Hemoglobin (Bld) [Mass/Vol] 11.0 g/dL Low 11.5-15.5 [facility] Comment on above: Order Comment: Speci men Type: BLOOD SPECIMENOrdering Facility: [facility] Address: [address] [place] [address] Performed By: #### 5 8410-2 ####[facility] [id number] [address] MCH (RBC) [Entitic mass] 26.6 pg Normal 26.0-34.0 [facility] Comment on above: Order Comment: Speci men Type: BLOOD SPECIMENOrdering Facility: [facility] Address: [address] [place] [address] Performed By: #### 5 8410-2 ####[facility] [id number] [address] [place] MCHC (RBC) [Mass/Vol] 31.6 g/dL Normal 30.5-36.0 [facility] Comment on above: Order Comment: Speci men Type: BLOOD SPECIMENOrdering Facility: [facility] Address: [address] [place] [address] Performed By: #### 5 8410-2 ####[facility] [id number] [address] MCV (RBC) [Entitic vol] 84.3 fL Normal 80.0-100.0 [facility] Comment on above: Order Comment: Speci men Type: BLOOD SPECIMENOrdering Facility: [facility] Address: [address] [place] [address] Performed By: #### 5 8410-2 ####[facility] [id number] [address] [place] Nucleated RBC (Bld) [#/Vol] 10*3/uL Normal <0.01 [facility] Comment on above: Order Comment: Speci men Type: BLOOD SPECIMENOrdering Facility: [facility] Address: [address] [place] [address] Performed By: #### 5 8410-2 ####[facility] [id number] [address] [place] Platelet mean volume (Bld) [Entitic vol] 9.7 fL Normal 9.0-12.7 [facility] Comment on above: Order Comment: Speci men Type: BLOOD SPECIMENOrdering Facility: [facility] Address: [address] [place] [address] Performed By: #### 5 8410-2 ####[facility] [id number] [address] Platelets (Bld) [#/Vol] 278 10*3/uL Normal 150-400 [facility] Comment on above: Order Comment: Speci men Type: BLOOD SPECIMENOrdering Facility: [facility] Address: [address] [place] [address] Performed By: #### 5 8410-2 ####[facility] [id number] [address] [place] RBC (Bld) [#/Vol] 4.13 10*6/uL Normal 3.90-5.20 [facility] Comment on above: Order Comment: Speci men Type: BLOOD SPECIMENOrdering Facility: [facility] Address: [address] [place] [address] Performed By: #### 5 8410-2 ####[facility] [id number] [place] [address] [place] WBC (Bld) [#/Vol] 4.70 10*3/uL Normal 3.70-11.00 [facility] Comment on above: Order Comment: Speci men Type: BLOOD SPECIMENOrdering Facility: [facility] Address: [address] [place] [address] Performed By: #### 5 8410-2 ####[facility] [id number] [place] [address] [place] NURSING PROGon 06-14-2024 NURSING PROG HNO ID: [id number] Author: JOSE JERNIGAN, RN Service: Nursing Author [...] XR and lidocaine patch Normal [facility] XR SHLDR >/=3V AP/JASON AP/OTH R [...] portions of the right lung are clear. Assistant Plant Controller: DEVEN Transcribe Date/Time: Jun 14 2024 1:33P Dictated by : DEV WELCH MD This examination was interpreted and the report reviewed and electronically signed by: DEV WELCH MD on Jun 14 2024 1:35PM EST [id number] Normal [facility] ALLIED HEALTHon 06-13-2024 ALLIED HEALTH HNO ID: [id number] Author: ALFRED DALEY Chaplain Service: ? Author Type: Catalogue Illustrator Type: Allied Health Filed: 06/13/2024 14:38 Note Text: SPIRITUAL CARE ASSESSMENT SERVICE DATE: 06/13/2024 SERVICE TIME: 11:53 Visit with: Patient Length of visit (minutes): 5 Buddhist / Spirituality: Pt did not Disc. Reason: [...] PM PAGER/CONTACT #: [phone] Normal [facility] Basic metabolic 2000 panelon 06-13-2024 Anion gap [Moles/Vol] 11 mmol/L Normal 8-15 [facility] Comment on above: Order Comment: Speci men Type: BLOOD SPECIMEN [facility] Address: [address] [place] [address] Performed By: #### 2 4321-2, 73922-0, #### [facility] CLIA [id number] [address] [place] [address] [place] Calcium [Mass/Vol] 8.9 mg/dL Normal 8.5-10.2 [facility] Comment on above: Order Comment: Speci men Type: BLOOD SPECIMEN [facility] Address: [address] [place] [address] Performed By: #### 2 4321-2, 52690-1, #### [facility] CLIA [id number] 1 [place] [address] [place] Chloride [Moles/Vol] 101 mmol/L Normal 98-107 [facility] Comment on above: Order Comment: Rhina mason Type: BLOOD SPECIMEN [facility] Address: [address] [place] [address] Performed By: #### 2 4321-2, 56652-6, #### [facility] CLIA [id number] [address] [place] CO2 [Moles/Vol] 24 mmol/L Normal 22-30 [facility] Comment on above: Order Comment: Speci men Type: BLOOD SPECIMEN [facility] Address: [address] [place] [address] Performed By: #### 2 4321-2, 68143-3, #### [facility] CLIA [id number] [address] STATES OF [facility] Creatinine [Mass/Vol] 1.04 mg/dL High 0.58-0.96 [facility] Comment on above: Order Comment: Rhina mason Type: BLOOD SPECIMEN [facility] Facility[facility] Address: [address] [place] [address] Performed By: #### 2 4321-2, 19299-1, #### [facility] CLIA [id number] [address] Creatinine and Glomerular filtration rate.predicted panel (S/P/Bld) 53 mL/min/1.73m??? Low >=60 [facility] Comment on above: Order Comment: Specrobson mason Type: BLOOD SPECIMEN [facility] Address: [address] [place] [address] Result Comment: Isa mated Glomerular Filtration Rate [...] actual GFR. Performed By: #### 2 4321-2, 95566-3, #### [facility] CLIA [id number] [address] [place] [address] [place] Glucose [Mass/Vol] 95 mg/dL Normal 74-99 [facility] Comment on above: Order Comment: Rhina mason Type: BLOOD SPECIMEN [facility] Address: [address] [place] [address] Result Comment: The [place] [employer] (ADA) provides guidance for cutoff [...] Standards of Medical Care in Diabetes 2016, [place] [employer]. Diabetes Care. 2016.39(Suppl 1). Performed By: #### 2 4321-2, 96010-3, #### [facility] CLIA [id number] [address] [place] [address] [place] Potassium [Moles/Vol] 3.8 mmol/L Normal 3.7-5.1 [facility] Comment on above: Order Comment: Rhina mason Type: BLOOD SPECIMEN [facility] Facility: [facility] Address: [address] [place] [address] Performed By: #### 2 4321-2, 26576-1, #### [facility] CLIA [id number] [address] [place] [address] [place] Sodium [Moles/Vol] 136 mmol/L Normal 136-144 [facility] Comment on above: Order Comment: Rhina mason Type: BLOOD SPECIMEN Order[facility] Facility: [facility] Address: [address] [place], [place] [address] Performed By: #### 2 4321-2, 09356-9, #### [facility] CLIA [id number] [address] [place] Urea nitrogen [Mass/Vol] 16 mg/dL Normal 7-21 [facility] Comment on above: Order Comment: Speci men Type: BLOOD SPECIMEN [facility] Facility[facility] Address: [address] [place] [address] Performed By: #### 2 4321-2, 03097-3, #### [facility] CLIA [id number] [address] [place] CBC panel Auto (Bld)on 06-13 Erythrocyte distribution width (RBC) [Ratio] 15.5 % High 11.5-15.0 [facility] Comment on above: Order Comment: Speci men Type: BLOOD SPECIMENOrdering Facility: [facility] Address: [address] [place] [address] Performed By: #### 5 8410-2 ####[facility] [id number] [address] [place] Hematocrit (Bld) [Volume fraction] 33.1 % Low 36.0-46.0 [facility] Comment on above: Order Comment: Speci men Type: BLOOD SPECIMENOrdering Facility: [facility] Address: [address] [place] [address] Performed By: #### 5 8410-2 ####[facility] [id number] [address] [place] Hemoglobin (Bld) [Mass/Vol] 10.2 g/dL Low 11.5-15.5 [facility] Comment on above: Order Comment: Speci men Type: BLOOD SPECIMENOrdering Facility: [facility] Address: [address] [place] [address] Performed By: #### 5 8410-2 ####[facility] [id number] [address] [place] MCH (RBC) [Entitic mass] 26.5 pg Normal 26.0-34.0 [facility] Comment on above: Order Comment: Speci men Type: BLOOD SPECIMENOrdering Facility: [facility] Address: [address] [place] [address] Performed By: #### 5 8410-2 ####[facility] [id number] [address] MCHC (RBC) [Mass/Vol] 30.8 g/dL Normal 30.5-36.0 [facility] Comment on above: Order Comment: Speci men Type: BLOOD SPECIMENOrdering Facility: [facility] Address: [address] [place] [address] Performed By: #### 5 8410-2 ####[facility]ORATORYCLIA [id number] [address] MCV (RBC) [Entitic vol] 86.0 fL Normal 80.0-100.0 [facility] Comment on above: Order Comment: Speci men Type: BLOOD SPECIMENOrdering Facility: [facility] Address: [address] [place] [address] Performed By: #### 5 8410-2 ####[facility] LABORATORYCLIA [id number] [address] Nucleated RBC (Bld) [#/Vol] 10*3/uL Normal <0.01 [facility] Comment on above: Order Comment: Speci men Type: BLOOD SPECIMENOrdering Facility: [facility] Address: [address] [place] [address] Performed By: #### 5 8410-2 ####[facility]ORATORYCLIA [id number] [address] Platelet mean volume (Bld) [Entitic vol] 9.6 fL Normal 9.0-12.7 [facility] Comment on above: Order Comment: Speci men Type: BLOOD SPECIMENOrdering Facility: [facility] Address: [address] [place] [address] Performed By: #### 5 8410-2 ####[facility] LABORATORYCLIA [id number] [address] [place] Platelets (Bld) [#/Vol] 287 10*3/uL Normal 150-400 [facility] Comment on above: Order Comment: Speci men Type: BLOOD SPECIMENOrdering Facility: [facility] Address: [address] [place] [address] Performed By: #### 5 8410-2 ####[facility]IA [id number] [place] [address] [place] RBC (Bld) [#/Vol] 3.85 10*6/uL Low 3.90-5.20 [facility] Comment on above: Order Comment: Speci men Type: BLOOD SPECIMENOrdering Facility: [facility] Address: [address] [place] [address] Performed By: #### 5 8410-2 ####[facility] [id number] [address] OF [facility] WBC (Bld) [#/Vol] 4.79 10*3/uL Normal 3.70-11.00 [facility] Comment on above: Order Comment: Speci men Type: BLOOD SPECIMENOrdering Facility: [facility] Address: [address] [place] [address] Performed By: #### 5 8410-2 ####[facility] [id number] [address] [place] aPTT PPPon 06-13-2024 aPTT Coag (PPP) [Time] 51.3 s High 23.0-32.4 [facility] Comment on above: Order Comment: Speci men Type: BLOOD SPECIMEN [facility] Address: [address] [place] [address] Performed By: #### 2 4321-2, 42037-6, 76716-1 #### [facility] CLIA [id number] [address] [place] aPTT Coag (PPP) [Time] 89.0 s High 23.0-32.4 [facility] Comment on above: Order Comment: Speci men Type: BLOOD SPECIMEN [facility] Address: [address] [place], [place] [address] Performed By: #### 2 4321-2, 49242-4, #### [facility] CLIA [id number] [address] [place] ALLIED HEALTHon 06-12-2024 ALLIED HEALTH HNO ID: [id number] Author: HELLEN SEVILLA RT(R) Service: Radiology Author [...] PATIENT PRESENTS WITH AN IMPLANTABLE OR ATTACHED PREVOCATIONAL/REHABILITATION COUNSELOR: No RADIOLOGY DEPARTMENT: CT; Exam(s) Completed: Brain PERIPHERAL IV DATA: Not applicable SIGNED BY: RT Reji(R) June 12, 2024 9:13 AM Normal [facility] CBC W Auto Differential pane l (Bld)on 06-12-2024 Basophils (Bld) [#/Vol] 0.03 10*3/uL Normal <0.11 [facility] Comment on above: Order Comment: Rhina mason Type: BLOOD SPECIMEN [facility] Address: [address] [place] [address] Performed By: #### 2 4321-2, 80863-3, 70906-2 #### [facility] CLIA [id number] [address] OF [place] Basophils/100 WBC (Bld) 0.6 % Normal [facility] Comment on above: Order Comment: Speci men Type: BLOOD SPECIMEN [facility] Address: [address] [place] [address] Performed By: #### 2 4321-2, 77316-3, #### [facility] CLIA [id number] [address] Differential cell count method Nom (Bld) Auto Normal [facility] Comment on above: Order Comment: Speci men Type: BLOOD SPECIMEN [facility] Address: [address] [place] [address] Performed By: #### 2 4321-2, 73298-4, #### [facility] CLIA [id number] [address] [place] Eosinophils (Bld) [#/Vol] 0.05 10*3/uL Normal <0.46 [facility] Comment on above: Order Comment: Speci men Type: BLOOD SPECIMEN [facility] Address: [address] [place] [address] Performed By: #### 2 1-2, 73209-3, #### [facility] CLIA [id number] [address] STATES OF [facility] Eosinophils/100 WBC (Bld) 1.0 % Normal [facility] Comment on above: Order Comment: Speci men Type: BLOOD SPECIMEN [facility] Address: [address] [place] [address] Performed By: #### 2 4321-2, 92094-8, #### [facility] CLIA [id number] [address] [place] Erythrocyte distribution width (RBC) [Ratio] 15.6 % High 11.5-15.0 [facility] Comment on above: Order Comment: Speci men Type: BLOOD SPECIMEN [facility] Address: [address] [place] [address] Performed By: #### 2 4321-2, 49376-6, #### [facility] CLIA [id number] [address] [place] Hematocrit (Bld) [Volume fraction] 34.6 % Low 36.0-46.0 [facility] Comment on above: Order Comment: Speci men Type: BLOOD SPECIMEN [facility] Address: [address] [place] [address] Performed By: #### 2 1-2, 23608-3, #### [facility] CLIA [id number] [address] [place] Hemoglobin (Bld) [Mass/Vol] 10.6 g/dL Low 11.5-15.5 [facility] Comment on above: Order Comment: Speci men Type: BLOOD SPECIMEN [facility] Address: [address] [place] [address] Performed By: #### 2 4320-2, 19046-0, #### [facility] CLIA [id number] [address] OF [place] Immature granulocytes (Bld) [#/Vol] 10*3/uL Normal <0.10 [facility] Comment on above: Order Comment: Speci men Type: BLOOD SPECIMEN [facility] Address: [address] [place] [address] Performed By: #### 2 1-2, 79834-2, #### [facility] CLIA [id number] [address] [place] Immature granulocytes/100 WBC (Bld) 0.2 % Normal [facility] Comment on above: Order Comment: Speci men Type: BLOOD SPECIMEN [facility] Address: [address] [place] [address] Performed By: #### 2 1-2, 56140-4, #### [facility] CLIA [id number] 1 [place] [address] [place] Lymphocytes (Bld) [#/Vol] 1.65 10*3/uL Normal 1.00-4.00 [facility] Comment on above: Order Comment: Speci men Type: BLOOD SPECIMEN [facility] Address: [address] [place] [address] Performed By: #### 2 4321-2, 62068-8, #### [facility] CLIA [id number] [address] Lymphocytes/100 WBC (Bld) 31.9 % Normal [facility] Comment on above: Order Comment: Speci men Type: BLOOD SPECIMEN [facility] Address: [address] [place] [address] Performed By: #### 2 4321-2, 61037-9, #### [facility] CLIA [id number] [address] STATES OF [facility] MCH (RBC) [Entitic mass] 26.2 pg Normal 26.0-34.0 [facility] Comment on above: Order Comment: Speci men Type: BLOOD SPECIMEN [facility] Address: [address] [place] [address] Performed By: #### 2 4321-2, 07093-1, #### [facility] CLIA [id number] [address] OF [facility] MCHC (RBC) [Mass/Vol] 30.6 g/dL Normal 30.5-36.0 [facility] Comment on above: Order Comment: Speci men Type: BLOOD SPECIMEN [facility] Address: [address] [place] [address] Performed By: #### 2 4321-2, 19179-6, #### [facility] CLIA [id number] [address] MCV (RBC) [Entitic vol] 85.6 fL Normal 80.0-100.0 [facility] Comment on above: Order Comment: Speci men Type: BLOOD SPECIMEN [facility] Address: [address] [place] [address] Performed By: #### 2 4321-2, 83227-6, #### [facility] CLIA [id number] 1 [place] [address] [place] Monocytes (Bld) [#/Vol] 0.46 10*3/uL Normal <0.87 [facility] Comment on above: Order Comment: Speci men Type: BLOOD SPECIMEN [facility] Address: [address] [place] [address] Performed By: #### 2 4321-2, 38100-2, #### [facility] CLIA [id number] [address] [place] Monocytes/100 WBC (Bld) 8.9 % Normal [facility] Comment on above: Order Comment: Speci men Type: BLOOD SPECIMEN [facility] Address: [address] [place] [address] Performed By: #### 2 1-2, 64935-5, #### [facility] CLIA [id number] [address] [place] Neutrophils (Bld) [#/Vol] 2.97 10*3/uL Normal 1.45-7.50 [facility] Comment on above: Order Comment: Speci men Type: BLOOD SPECIMEN [facility] Address: [address] [place] [address] Performed By: #### 2 4321-2, 05873-6, #### [facility] CLIA [id number] [address] [place] Neutrophils/100 WBC (Bld) 57.4 % Normal [facility] Comment on above: Order Comment: Speci men Type: BLOOD SPECIMEN [facility] Address: [address] [place] [address] Performed By: #### 2 4321-2, 75463-5, #### [facility] CLIA [id number] [address] [place] Nucleated RBC (Bld) [#/Vol] 10*3/uL Normal <0.01 [facility] Comment on above: Order Comment: Speci men Type: BLOOD SPECIMEN [facility] Address: [address] [place] [address] Performed By: #### 2 4321-2, 90140-5, #### [facility] CLIA [id number] [address] OF [place] Nucleated RBC/100 WBC (Bld) [Ratio] 0.0 /100 WBC Normal [facility] Comment on above: Order Comment: Speci men Type: BLOOD SPECIMEN [facility] Address: [address] [place] [address] Performed By: #### 2 4321-2, 71965-0, #### [facility] CLIA [id number] [address] OF [place] Platelet mean volume (Bld) [Entitic vol] 9.6 fL Normal 9.0-12.7 [facility] Comment on above: Order Comment: Speci men Type: BLOOD SPECIMEN [facility] Address: [address] [place] [address] Performed By: #### 2 4321-2, 28270-5, #### [facility] CLIA [id number] [address] OF [place] Platelets (Bld) [#/Vol] 314 10*3/uL Normal 150-400 [facility] Comment on above: Order Comment: Speci men Type: BLOOD SPECIMEN [facility] Address: [address] [place] [address] Performed By: #### 2 4321-2, 74926-6, #### [facility] CLIA [id number] [address] [place] RBC (Bld) [#/Vol] 4.04 10*6/uL Normal 3.90-5.20 [facility] Comment on above: Order Comment: Speci men Type: BLOOD SPECIMEN [facility] Address: [address] [place], [place] [address] Performed By: #### 2 4321-2, 61860-1, #### [facility] CLIA [id number] 1 [place] [address] [place] WBC (Bld) [#/Vol] 5.17 10*3/uL Normal 3.70-11.00 [facility] Comment on above: Order Comment: Speci men Type: BLOOD SPECIMEN [facility] Address: [address] [place] [address] Performed By: #### 2 4321-2, 30461-9, #### [facility] CLIA [id number] [address] [place] CONSULTon 06-12-2024 CONSULT HNO ID: [id number] Author: MINA TALBERT MD Service: Cardiovascular Disease Author Type: Physician Type: Consults Filed: 06/12/2024 10:40 Note Text: CARDIOLOGY CONSULTATION- [facility] Patient Name: Mel Castillo : 1940 PRIMARY CARE PHYSICIAN: Jared Evans MD [address] [place] [address] REFERRING PHYSICIAN No referring provider defined for [...] presumptive 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[facility] with history of prior stroke PAD [...] the hospital a few months ago at [facility] she was taking her Eliquis and [...] (more content not included)... Normal [facility] CONSULT PROGon 06-12-2024 CONSULT PROG HNO ID: [id number] Author: NICOLAS TESFAYE APRN.SHAMIKA Service: Neurology General [...] Score: 1 (06/12/24 0945 : Nicolas Tesfaye APRN.BRANCH OPERATIONS SPECIALIST) 1 MENTAL STATUS: Alert, oriented to [...] and Prevention (personally reviewed by Nicolas Tesfaye APRN.BRANCH OPERATIONS SPECIALIST): Daily Rounding Date: 06/12/24 Daily Rounding [...] Serna Sh (more content not included)... Normal [facility] CT BRAIN WO IVCONon 06-12-20 CT BRAIN WO IVCON * * *Final Report* * * DATE OF EXAM: Jun 12 2024 9:25AM [facility] 0504 - CT BRAIN WO IVCON [...] intracranial hemorrhage. Chronic changes, as detailed above. Assistant Plant Controller: DEVEN Transcribe Date/Time: Jun 12 2024 9:42A Dictated by : LYDIA EVANS MD This examination was interpreted and the report reviewed and electronically signed by: LYDIA EVANS MD on Jun 12 2024 9:47AM EST [id number] Normal [facility] Comprehensive metabolic 2000 panelon 06-12-2024 Albumin [Mass/Vol] 3.6 g/dL Low 3.9-4.9 [facility] Comment on above: Order Comment: Speci men Type: BLOOD SPECIMEN [facility] Address: [address] [place] [address] Performed By: #### 2 4321-2, 62002-6, #### [facility] CLIA [id number] [address] STATES OF [facility] ALP [Catalytic activity/Vol] 88 U/L Normal 34-123 [facility] Comment on above: Order Comment: Speci men Type: BLOOD SPECIMEN [facility] Address: [address] [place] [address] Performed By: #### 2 4321-2, 54002-3, #### [facility] CLIA [id number] [address] [place] ALT With P-5'-P [Catalytic activity/Vol] 6 U/L Low 7-38 [facility] Comment on above: Order Comment: Speci men Type: BLOOD SPECIMEN [facility] Address: [address] [place] [address] Performed By: #### 2 4321-2, 89387-7, #### [facility] CLIA [id number] [address] STATES [facility] Anion gap [Moles/Vol] 13 mmol/L Normal 8-15 [facility] Comment on above: Order Comment: Speci men Type: BLOOD SPECIMEN [facility] Address: [address] [place] [address] Performed By: #### 2 4321-2, 44965-6, #### [facility] CLIA [id number] 1 [place] [address] [place] AST With P-5'-P [Catalytic activity/Vol] 9 U/L Low 13-35 [facility] Comment on above: Order Comment: Speci men Type: BLOOD SPECIMEN [facility] Address: [address] [place] [address] Performed By: #### 2 4321-2, 46779-1, #### [facility] CLIA [id number] 1 [place] [address] [place] Bilirubin [Mass/Vol] 0.6 mg/dL Normal 0.2-1.3 [facility] Comment on above: Order Comment: Speci men Type: BLOOD SPECIMEN [facility] Address: [address] [place] [address] Performed By: #### 2 4321-2, 04513-3, #### [facility] CLIA [id number] [address] [place] Calcium [Mass/Vol] 9.2 mg/dL Normal 8.5-10.2 [facility] Comment on above: Order Comment: Speci men Type: BLOOD SPECIMEN [facility] Address: [address] [place] [address] Performed By: #### 2 4321-2, 93633-8, #### [facility] CLIA [id number] 1 [place] [address] [place] Chloride [Moles/Vol] 101 mmol/L Normal 98-107 [facility] Comment on above: Order Comment: Speci men Type: BLOOD SPECIMEN [facility] Address: [address] [place] [address] Performed By: #### 2 4321-2, 73555-9, #### [facility] CLIA [id number] 1 [place] [address] [place] CO2 [Moles/Vol] 23 mmol/L Normal 22-30 [facility] Comment on above: Order Comment: Speci men Type: BLOOD SPECIMEN [facility] Address: [address] [place] [address] Performed By: #### 2 4321-2, 62173-6, #### [facility] CLIA [id number] [address] [place] Creatinine [Mass/Vol] 1.02 mg/dL High 0.58-0.96 [facility] Comment on above: Order Comment: Speci men Type: BLOOD SPECIMEN [facility] Address: [address] [place] [address] Performed By: #### 2 4321-2, 15374-0, #### [facility] CLIA [id number] [address] OF [facility] Creatinine and Glomerular filtration rate.predicted panel (S/P/Bld) 54 mL/min/1.73m??? Low >=60 [facility] Comment on above: Order Comment: Speci men Type: BLOOD SPECIMEN [facility] Address: [address] [place] [address] Result Comment: Isa mated Glomerular Filtration Rate [...] actual GFR. Performed By: #### 2 4321-2, 61242-6, #### [facility] CLIA [id number] [address] [place] Glucose [Mass/Vol] 109 mg/dL High 74-99 [facility] Comment on above: Order Comment: Speci men Type: BLOOD SPECIMEN [facility] Address: [address] [place] [address] Result Comment: The [place] Diabetes Association (ADA) provides guidance for cutoff [...] Standards of Medical Care in Diabetes 2016, [place] [employer]. Diabetes Care. 2016.39(Suppl 1). Performed By: #### 2 4321-2, 08726-8, #### [facility] CLIA [id number] 1 [place] [address] [place] Potassium [Moles/Vol] 4.0 mmol/L Normal 3.7-5.1 [facility] Comment on above: Order Comment: Rhina mason Type: BLOOD SPECIMEN [facility] Address: [address] [place] [address] Performed By: #### 2 4321-2, 45872-8, #### [facility] CLIA [id number] 1 [place] [address] [place] Protein [Mass/Vol] 6.4 g/dL Normal 6.3-8.0 [facility] Comment on above: Order Comment: Samiri isabella Type: BLOOD SPECIMEN [facility] Address: [address] [place] [address] Performed By: #### 2 4321-2, 63991-8, #### [facility] CLIA [id number] 1 [place] [address] [place] Sodium [Moles/Vol] 137 mmol/L Normal 136-144 [facility] Comment on above: Order Comment: Samiri men Type: BLOOD SPECIMEN [facility] Address: [address] [place] [address] Performed By: #### 2 4321-2, 76298-2, #### [facility] CLIA [id number] [address] STATES [facility] Urea nitrogen [Mass/Vol] 12 mg/dL Normal 7-21 [facility] Comment on above: Order Comment: Speci men Type: BLOOD SPECIMEN [facility] Address: [address] [place] [address] Performed By: #### 2 4321-2, 05427-4, 33332-5 #### [facility] CLIA [id number] [address] Magnesium SerPl-mCncon 06-12 Magnesium [Mass/Vol] 2.3 mg/dL Normal 1.7-2.3 [facility] Comment on above: Order Comment: Specrobson mason Type: BLOOD SPECIMEN [facility] Address: [address] [place] [address] Performed By: #### 2 4321-2, 03504-9, 52693-3 #### [facility] CLIA [id number] [address] OF [facility] NURSING PROGon 06-12-2024 NURSING PROG HNO ID: [id number] Author: ROBINSON VELÁSQUEZ RN Service: ? Author [...] draw due at 1900 Normal [facility] PT EDon 06-12-2024 PT ED HNO ID: [id number] Author: DOT PETERSON [facility] Service: Pharmacy Author Type: ? Type: Patient Education Filed: 06/12/2024 16:17 Note Text: Attestation signed by Dot Peterson [facility] at 06/12/2024 4:17 PM I have reviewed [...] questions. Patient aware of copay. Nayana Rowan, Survey Operations Director [facility] THERAPY NTon 06-12-2024 THERAPY NT HNO ID: [id number] Author: LATOYA LONG PT Service: Physical Therapy Author Type: Physical Therapist Type: Therapy (PT/OT/Speech/Resp) Filed: 06/12/2024 15:33 Note Text: Physical Therapy Treatment Summary SERVICE DATE: 06/12/2024 SERVICE TIME: 1445 to 1509 ROOM: [place] [address] PT 6 Clicks Score: 13 DISCHARGE RECOMMENDATIONS [...] Lack of coordination-other TREATMENT INTERVENTIONS Therapeutic Activity (99750), Neuromuscular Reeducation (64310) Timed Code Treatment (minutes): 23 Skilled Treatment Time (minutes): 23 Therapeutic Activity (67444) Treatment Minutes: 10 $ Therapeutic Activity (87077) Billed Units: 1 unit Training and assist with bed mobility, transfers and taking steps in place and side steps along the EOB with the walker. Neuromuscular Reeducation (67347) Treatment Minutes: 13 $ Neuromuscular Reeducation (47431) Billed Units: 1 unit Instructed pt in [...] (more content not included)... Normal [facility] THERAPY NT HNO ID: [id number] Author: SAMI WEINBERG OTR/L Service: Occupational Therapy Author Type: Occupational Therapist Type: Therapy (PT/OT/Speech/Resp) Filed: 06/12/2024 08:50 Note Text: Occupational Therapy Evaluation Summary SERVICE DATE: 06/12/2024 SERVICE TIME: 810 ROOM: [id number] OT 6 Clicks Score: 15 DISCHARGE RECOMMENDATIONS [...] and signs-other TREATMENT INTERVENTIONS Evaluation, Therapeutic Activity (45183) Timed Code Treatment (minutes): 8 Skilled Treatment Time (minutes): 23 $ Evaluation - Moderate (25060) Billed Units: 1 unit Therapeutic Activity (98122) Treatment Minutes: 8 $ Therapeutic Activity (34114) Billed Units: 1 unit TRAINING AND EDUCATION PROVIDED Assistive Device Use, Bed Mobility, Benefits of In-Hospital Mobility, Cognitive Stimulation Activities, Discharge Planning, Disease Specific Education, Role of Occupational Therapy, Safety/Judgment, Sitting Balance to Improve [place] with ADLs/Self-Care THERAPEUTIC SKILLS USED Activity Dosing, [...] (more content not included)... Normal [facility] aPTT PPPon 06-12-2024 aPTT Coag (PPP) [Time] 56.1 s High 23.0-32.4 [facility] Comment on above: Order Comment: Speci men Type: BLOOD SPECIMEN [facility] Address: [address] [place] [address] Performed By: #### 2 4321-2, 97788-4, 68470-9 #### [facility] CLIA [id number] [address] aPTT Coag (PPP) [Time] 79.0 s High 23.0-32.4 [facility] Comment on above: Order Comment: Speci men Type: BLOOD SPECIMEN [facility] Address: [address] [place], [place] [address] Performed By: #### 1 4979-9 #### [facility] CLIA [id number] [address] aPTT Coag (PPP) [Time] 123.9 s High 23.0-32.4 [facility] Comment on above: Order Comment: Speci men Type: BLOOD SPECIMEN [facility] Address: [address] [place] [address] Performed By: #### 2 4321-2, 78221-0, #### [facility] CLIA [id number] [address] aPTT Coag (PPP) [Time] 117.3 s High 23.0-32.4 [facility] Comment on above: Order Comment: Speci men Type: BLOOD SPECIMEN [facility] Address: [address] [place], [place] [address] Performed By: #### 2 4321-2, 05822-2, #### [facility] CLIA [id number] [address] OF [facility] 36on 06-11-[address] [place] [address] 06-11-2024 [facility] HNO ID: [id number] Author: FABIO KERR Tech Service: ? Author Type: Glass Edger Type: [facility] Filed: 06/11/2024 14:16 Note [...] PATIENT PRESENTS WITH AN IMPLANTABLE OR ATTACHED PREVOCATIONAL/REHABILITATION COUNSELOR: No RADIOLOGY DEPARTMENT: MR; Exam(s) Completed: Head: Routine Brain [place] MRA MRA Carotid PERIPHERAL IV DATA: Not applicable SIGNED BY: Anne Marie Carrillo June 11, 2024 2:15 PM Normal [facility] CBC W Auto Differential pane l (Bld)on 06-11-2024 Basophils (Bld) [#/Vol] 0.03 10*3/uL Normal <0.11 [facility] Comment on above: Order Comment: Speci men Type: BLOOD SPECIMEN Ordering Facility: [facility] Address: [address] [place] [address] Performed By: #### 2 4321-2, 17884-1, #### [facility] CLIA [id number] [address] [place] Basophils/100 WBC (Bld) 0.4 % Normal [facility] Comment on above: Order Comment: Speci men Type: BLOOD SPECIMEN Ordering Facility: [facility] Address: [address] [place] [address] Performed By: #### 2 4321-2, 64202-6, #### [facility] CLIA [id number] [address] [place] Differential cell count method Nom (Bld) Auto Normal [facility] Comment on above: Order Comment: Speci men Type: BLOOD SPECIMEN Ordering Facility: [facility] Address: [address] [place] [address] Performed By: #### 2 4321-2, 50673-0, #### [facility] CLIA [id number] [address] [place] Eosinophils (Bld) [#/Vol] 10*3/uL Normal <0.46 [facility] Comment on above: Order Comment: Speci men Type: BLOOD SPECIMEN Ordering Facility: [facility] Address: [address] [place] [address] Performed By: #### 2 4321-2, 57977-9, #### [facility] CLIA [id number] [address] [place] Eosinophils/100 WBC (Bld) 0.3 % Normal [facility] Comment on above: Order Comment: Speci men Type: BLOOD SPECIMEN Ordering Facility: [facility] Address: [address] [place] [address] Performed By: #### 2 4321-2, 44671-5, #### [facility] CLIA [id number] [address] [place] Erythrocyte distribution width (RBC) [Ratio] 15.6 % High 11.5-15.0 [facility] Comment on above: Order Comment: Speci men Type: BLOOD SPECIMEN Ordering Facility: [facility] Address: [address] [place] [address] Performed By: #### 2 4321-2, 36420-1, #### [facility] CLIA [id number] [address] [place] Hematocrit (Bld) [Volume fraction] 37.6 % Normal 36.0-46.0 [facility] Comment on above: Order Comment: Speci men Type: BLOOD SPECIMEN Ordering Facility: [facility] Address: [address] [place] [address] Performed By: #### 2 4321-2, 03471-7, #### [facility] CLIA [id number] [address] [place] Hemoglobin (Bld) [Mass/Vol] 11.5 g/dL Normal 11.5-15.5 [facility] Comment on above: Order Comment: Speci men Type: BLOOD SPECIMEN Ordering Facility: [facility] Address: [address] [place] [address] Performed By: #### 2 4321-2, 04083-4, #### [facility] CLIA [id number] 1 [place] [address] [place] Immature granulocytes (Bld) [#/Vol] 0.03 10*3/uL Normal <0.10 [facility] Comment on above: Order Comment: Speci men Type: BLOOD SPECIMEN Ordering Facility: [facility] Address: [address] [place] [address] Performed By: #### 2 4321-2, 15596-7, #### [facility] CLIA [id number] [address] [place] Immature granulocytes/100 WBC (Bld) 0.4 % Normal [facility] Comment on above: Order Comment: Speci men Type: BLOOD SPECIMEN Ordering Facility: [facility] Address: [address] [place] [address] Performed By: #### 2 1-2, 31799-4, #### [facility] CLIA [id number] 1 [place] [address] [place] Lymphocytes (Bld) [#/Vol] 1.26 10*3/uL Normal 1.00-4.00 [facility] Comment on above: Order Comment: Speci men Type: BLOOD SPECIMEN Ordering Facility: [facility] Address: [address] [place] [address] Performed By: #### 2 4321-2, 73590-4, #### [facility] CLIA [id number] [address] [place] Lymphocytes/100 WBC (Bld) 16.9 % Normal [facility] Comment on above: Order Comment: Speci men Type: BLOOD SPECIMEN Ordering Facility: [facility] Address: [address] [place] [address] Performed By: #### 2 4321-2, 59080-8, #### [facility] CLIA [id number] [address] MCH (RBC) [Entitic mass] 26.6 pg Normal 26.0-34.0 [facility] Comment on above: Order Comment: Speci men Type: BLOOD SPECIMEN Ordering Facility: [facility] Address: [address] [place] [address] Performed By: #### 2 1-2, 83786-2, #### [facility] CLIA [id number] [address] MCHC (RBC) [Mass/Vol] 30.6 g/dL Normal 30.5-36.0 [facility] Comment on above: Order Comment: Speci men Type: BLOOD SPECIMEN Ordering Facility: [facility] Address: [address] [place] [address] Performed By: #### 2 4320-2, 13850-9, #### [facility] CLIA [id number] [address] MCV (RBC) [Entitic vol] 87.0 fL Normal 80.0-100.0 [facility] Comment on above: Order Comment: Speci men Type: BLOOD SPECIMEN Ordering Facility: [facility] Address: [address] [place] [address] Performed By: #### 2 4320-2, 75426-9, #### [facility] CLIA [id number] [address] Monocytes (Bld) [#/Vol] 0.68 10*3/uL Normal <0.87 [facility] Comment on above: Order Comment: Speci men Type: BLOOD SPECIMEN Ordering Facility: [facility] Address: [address] [place] [address] Performed By: #### 2 4321-2, 78419-7, #### [facility] CLIA [id number] 1 [place] [address] [place] Monocytes/100 WBC (Bld) 9.1 % Normal [facility] Comment on above: Order Comment: Speci men Type: BLOOD SPECIMEN Ordering Facility: [facility] Address: [address] [place] [address] Performed By: #### 2 4321-2, 06120-6, #### [facility] CLIA [id number] 1 [place] [address] [place] Neutrophils (Bld) [#/Vol] 5.43 10*3/uL Normal 1.45-7.50 [facility] Comment on above: Order Comment: Speci men Type: BLOOD SPECIMEN Ordering Facility: [facility] Address: [address] [place] [address] Performed By: #### 2 4321-2, 16533-2, #### [facility] CLIA [id number] [address] [place] Neutrophils/100 WBC (Bld) 72.9 % Normal [facility] Comment on above: Order Comment: Speci men Type: BLOOD SPECIMEN Ordering Facility: [facility] Address: [address] [place] [address] Performed By: #### 2 4321-2, 47479-3, #### [facility] CLIA [id number] 1 [place] [address] [place] Nucleated RBC (Bld) [#/Vol] 10*3/uL Normal <0.01 [facility] Comment on above: Order Comment: Speci men Type: BLOOD SPECIMEN Ordering Facility: [facility] Address: [address] [place] [address] Performed By: #### 2 4321-2, 16281-6, #### [facility] CLIA [id number] 1 [place] [address] [place] Nucleated RBC/100 WBC (Bld) [Ratio] 0.0 /100 WBC Normal [facility] Comment on above: Order Comment: Speci men Type: BLOOD SPECIMEN Ordering Facility: [facility] Address: [address] [place] [address] Performed By: #### 2 4321-2, 31207-9, #### [employer] [facility] CLIA [id number] [address] [place] Platelet mean volume (Bld) [Entitic vol] 9.5 fL Normal 9.0-12.7 [facility] Comment on above: Order Comment: Speci men Type: BLOOD SPECIMEN Ordering Facility: [facility] Address: [address] [place] [address] Performed By: #### 2 4321-2, 26027-8, #### [employer] [facility] CLIA [id number] [address] [place] Platelets (Bld) [#/Vol] 329 10*3/uL Normal 150-400 [facility] Comment on above: Order Comment: Speci men Type: BLOOD SPECIMEN Ordering Facility: [facility] Address: [address] [place] [address] Performed By: #### 2 4321-2, 92024-0, #### [facility] CLIA [id number] [address] [place] RBC (Bld) [#/Vol] 4.32 10*6/uL Normal 3.90-5.20 [facility] Comment on above: Order Comment: Speci men Type: BLOOD SPECIMEN Ordering Facility: [facility] Address: [address] [place] [address] Performed By: #### 2 4321-2, 36831-8, #### [facility] CLIA [id number] [address] [place] WBC (Bld) [#/Vol] 7.45 10*3/uL Normal 3.70-11.00 [facility] Comment on above: Order Comment: Speci men Type: BLOOD SPECIMEN Ordering Facility: [facility] Address: [address] [place] [address] Performed By: #### 2 4321-2, 15863-2, 42543-9 #### [facility] CLIA [id number] [address] OF [facility] CONSULTon 06-11-2024 CONSULT HNO ID: [id number] Author: JENNY WALLACE MD Service: Neurology General [...] cannot ambulate. Pre-admission Pre-morbid mRS: Premorbid Modified Keene Score: 0 - No symptoms at all [...] (more content not included)... Normal [facility] CONSULT HNO ID: [id number] Author: TOÑO MANZO MD Service: Urology Author [...] discussed with the Patient or Patient's Authorized Business Quality Assurance Analyst. As applicable, any other physician, advance practice provider, medical student, or other health professional student that will be observing or involved in the sensitive examination for educational or training purposes was discussed with the Patient or Authorized Business Quality Assurance Analyst. The Patient or Authorized Business Quality Assurance Analyst has agreed to proceed with the sensitive [...] lesion. Consider follow-up renal CT/MR for characterization. Assistant Plant Controller: DEVEN Chaudhry (more content not included)... Normal [facility] CONSULT PROGon 06-11-2024 CONSULT PROG HNO ID: [id number] Author: CARL PERSAUD RPh Service: Pharmacy Author [...] care of this patient. Carl Persaud RPh [facility] CONSULT PROG HNO ID: [id number] Author: CARL PERSAUD RPh Service: Pharmacy Author [...] Signature: Carl Persaud RPh Normal [facility] CT ABD/PEL W IVCONon 024 CT ABD/PEL W IVCON * * *Final Report* * * DATE OF EXAM: Jun 11 2024 3:07AM [facility] 0530 - CT ABD/PEL W IVCON [...] to bilateral greater trochanters, similar to prior. Credit Processor (topogram) images: No additional findings. IMPRESSION: 1. Mild bilateral hydroureteronephrosis to the pelvic brim without evidence of ureterolithiasis. 2. Indeterminate left renal lesion. Consider follow-up renal CT/MR for characterization. Assistant Plant Controller: PSCB Transcribe Date/Time: Jun 11 2024 3:09A Dictated by : RAF AYALA MD This examination was interpreted and the report reviewed and electronically signed by: RAF AYALA MD on Jun 11 2024 3:40AM EST [id number] Normal [facility] CT BRAIN WO IVCONon 06-11-20 CT BRAIN WO IVCON * * *Final Report* * * DATE OF EXAM: Jun 11 2024 3:05AM [facility] 0504 - CT BRAIN WO IVCON [...] changes and small remote right occipital infarct. Assistant Plant Controller: DEVEN Transcribe Date/Time: Jun 11 2024 3:05A Dictated by : RIN LANE MD This examination was interpreted and the report reviewed and electronically signed by: RIN LANE MD on Jun 11 2024 3:16AM EST [id number] Normal [facility] ECHO WITH AGITATED SALINE CO NTRASTon 06-11-2024 ECHO WITH AGITATED SALINE CONTRAST Echocardiography Report: Transthoracic Echo [facility] Date of service: 06/11/2024 11:20:46 AM [facility] Ordering physician: DON EDWARDS Indication: TIA Technologist: Dinoar Fields [facility] Interpreting physician: Nando [...] * * * Final * * * [employer] : [id number] Normal [facility] ED NOTEon 06-11-2024 ED NOTE HNO ID: [id number] Author: GISSELL CARRINGTON RN Service: Emergency Medicine Author Type: Registered Nurse Type: ED Notes Filed: 06/11/2024 05:58 Note Text: Gave report to assigned RN on 2099. Assigned RN is ready to receive patient at this time. Normal [facility] ED NOTE HNO ID: [id number] Author: GISSELL CARRINGTON RN Service: Emergency Medicine Author Type: Registered Nurse Type: ED Notes Filed: 06/11/2024 00:40 Note Text: Dr. Mendoza at bedside placing a US IV at this time. Normal [facility] HIGH SENSITIVITY TROPONIN T (SECOND)on 06-11-2024 Troponin T.cardiac High sensitivity method [Mass/Vol] 14 ng/L High <12 [facility] Comment on above: Order Comment: Speci men Type: BLOOD SPECIMEN Ordering Facility: [facility] Address: [address] [place] [id number] Performed By: #### 2 4321-2, 41216-3, 04306-8 #### [facility] CLIA [id number] [address] HIGH SENSITIVITY TROPONIN T (THIRD) 3 HRS AFTER INITIALon 06-11-2024 Troponin T.cardiac High sensitivity method [Mass/Vol] 14 ng/L High <12 [facility] Comment on above: Order Comment: Speci men Type: BLOOD SPECIMEN Ordering Facility: [facility] Address: [address] [place] [address] Performed By: #### 2 4321-2, 91895-3, 60740-8 #### [facility] CLIA [id number] [address] HISTORY PHYSICALon HISTORY PHYSICAL HNO ID: [id number] Author: DON EDWARDS DO Service: Hospital Medicine Author Type: Physician Type: H&P Filed: 06/11/2024 14:14 Note Text: DEPARTMENT OF HOSPITAL MEDICINE HISTORY AND PHYSICAL EXAM SERVICE DATE: 06/11/2024 SERVICE TIME: 10:25 AM Primary Care Physician: Jared Evans MD, MD NIGHT AND WEEKEND COVERAGE: [place] COVERAGE: From 7am - 7pm, please call [phone] After 7pm, please call cross cover pager #[phone] Subjective CHIEF COMPLAINT: dizziness with vomiting, slurred [...] Use Topics Alcohol use: Not Currently Comment: [facility] Drug use: Never MEDICATIONS: Reviewed warfarin (COUMADIN) [...] Drains, and Airways Line Duration Peripheral 06/11/24 [facility] Left Antecubital 20 Gauge <1 day Drain Duration External Collection Device 06/11/24 0250 [facility] <1 day Reviewed lines and needs to be continued: REASONS: Telemetry DATA: Diagnostic tests reviewed for today's visit: Most recent lab (more content not included)... Normal [facility] MRA BRAIN WO IVCONon 024 MRA BRAIN WO IVCON * * *Final Report* * * DATE OF EXAM: Jun 11 2024 3:52PM [facility] 0272 - MRA BRAIN WO IVCON / PROCEDURE REASON: Neuro deficit, acute, stroke suspected * * * * Physician Interpretation * * * * EXAMINATION: MRI BRAIN WO IVCON, MRA BRAIN WO IVCON, MRA CAROTID WO IVCON CLINICAL HISTORY: Neuro deficit, acute, stroke suspected TECHNIQUE: Routine noncontrast MRI brain protocol including diffusion images. Intracranial and carotid 3D dfws-iw-ysjmpo MRA. 3D maximum intensity projection images were [...] Patency: Bilateral Dominance: Left INTRACRANIAL MRA: The [place] is patent without significant stenosis. 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 IMPRESSION: Motion degraded study. 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 No hemorrhagic transformation or significant mass effect. Unremarkable carotid MRA. 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 Assistant Plant Controller: DEVEN Transcribe Date/Time: Jun 11 2024 3:54P Dictated by : ESTHER MCKEON MD This examination was interpreted and the report reviewed and electronically signed by: ESTHER MCKEON MD on Jun 11 2024 4:13PM EST [id number] Normal [facility] MRA CAROTID WO IVCONon 06-11 MRA CAROTID WO IVCON * * *Final Report* * * DATE OF EXAM: Jun 11 2024 3:52PM [facility] 0275 - MRA CAROTID WO IVCON / PROCEDURE REASON: Neuro deficit, acute, stroke suspected * * * * Physician Interpretation * * * * EXAMINATION: MRI BRAIN WO IVCON, MRA BRAIN WO IVCON, MRA CAROTID WO IVCON CLINICAL HISTORY: Neuro deficit, acute, stroke suspected TECHNIQUE: Routine noncontrast MRI brain protocol including diffusion images. Intracranial and carotid 3D voji-uq-eapxep MRA. 3D maximum intensity projection images were [...] Patency: Bilateral Dominance: Left INTRACRANIAL MRA: The [place] is patent without significant stenosis. 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 IMPRESSION: Motion degraded study. 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 No hemorrhagic transformation or significant mass effect. Unremarkable carotid MRA. 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 Assistant Plant Controller: PSCB Transcribe Date/Time: Jun 11 2024 3:54P Dictated by : ESTHER MCKEON MD This examination was interpreted and the report reviewed and electronically signed by: ESTHER MCKEON MD on Jun 11 2024 4:13PM EST [id number] Normal [facility] MRI BRAIN WO IVCONon 024 MRI BRAIN WO IVCON * * *Final Report* * * DATE OF EXAM: Jun 11 2024 3:52PM [facility] 0294 - MRI BRAIN WO IVCON / PROCEDURE REASON: stroke * * * * Physician Interpretation * * * * EXAMINATION: MRI BRAIN WO IVCON, MRA BRAIN WO IVCON, MRA CAROTID WO IVCON CLINICAL HISTORY: Neuro deficit, acute, stroke suspected TECHNIQUE: Routine noncontrast MRI brain protocol including diffusion images. Intracranial and carotid 3D mnke-nc-wrgvel MRA. 3D maximum intensity projection images were [...] Patency: Bilateral Dominance: Left INTRACRANIAL MRA: The [place] is patent without significant stenosis. 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 IMPRESSION: Motion degraded study. 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 No hemorrhagic transformation or significant mass effect. Unremarkable carotid MRA. 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 Assistant Plant Controller: [facility] Transcribe Date/Time: Jun 11 2024 3:54P Dictated by : ESTHER MCKEON MD This examination was interpreted and the report reviewed and electronically signed by: ESTHER MCKEON MD on Jun 11 2024 4:13PM EST [id number] Normal [facility] PT panel Coag (PPP)on 2023 INR Coag (PPP) [Relative time] 1.2 {INR} Normal 0.9-1.3 [facility] Comment on above: Order Comment: Speci men Type: BLOOD SPECIMEN Ordering Facility: [facility] Address: [address] [place], [place] [address] Result Comment: Mayra min K Antagonist (VKA) Therapeutic Range: INR 2 to 3 (Target INR of 2.5) Note: For patients treated with VKA drugs, such as warfarin, the [place] 2012 Guideline recommends [...] Chest 2012, 141:7S-47S Daren RA, et al. [facility] 2017, 70: 252-289 Performed By: #### 2 4321-2, 53635-5, #### [facility] CLIA [id number] [address] [place] PT Coag (PPP) [Time] 12.6 s Normal 9.7-13.0 [facility] Comment on above: Order Comment: Speci men Type: BLOOD SPECIMEN Ordering Facility: [facility] Address: [address] [place] [address] Performed By: #### 2 4321-2, 32086-4, #### [facility] CLIA [id number] [address] [place] THERAPY NTon 06-11-2024 THERAPY NT HNO ID: [id number] Author: BASILIA MAGALLANES, RTUH-DOWEL STICKER OPERATOR Service: Speech/Swallow Author Type: Speech Language Pathologist Type: Therapy (PT/OT/Speech/Resp) Filed: 06/11/2024 09:44 Note Text: Speech Therapy Clinical Swallow Evaluation SERVICE DATE: 06/11/2024 SERVICE TIME: 16 to 0931 ROOM: [place] [address] IMPRESSION: Functional oropharyngeal phases of swallowing: without [...] Skilled Need Interventions Provided: Clinical Swallow Evaluation (36217) $ Clinical Swallow Evaluation (73160) Billed Units: 1 unit Training and Education [...] for this therapy evaluation/treatment. SIGNATURE: Basilia Magallanes CCC-DOWEL STICKER OPERATOR PATIENT NAME: Mel Castillo DATE: June 11, 2024 TIME: 9:39 AM Normal [facility] THERAPY NT HNO ID: [id number] Author: MEHREEN MANCERA, PT Service: Physical Therapy Author Type: Physical Therapist Type: Therapy (PT/OT/Speech/Resp) Filed: 06/11/2024 09:27 Note Text: Physical Therapy Evaluation Summary SERVICE DATE: 06/11/2024 SERVICE TIME: 804 to 841 ROOM: [place] [address] PT 6 Clicks Score: 18 DISCHARGE RECOMMENDATIONS [...] and signs-other TREATMENT INTERVENTIONS Evaluation, Canalith Repositioning (69400) Skilled Treatment Time (minutes): 37 $ Evaluation-Moderate (17374) Billed Units: 1 unit $ Canalith Repositioning (48816) Billed Units: 1 unit Repositioning maneuver for [...] due to blind L eye Positional Testing: Robbins-Hallpike, Left, Horizontal Canals, Left Robbins-Hallpike, Left: Note: pt with vertigo pattern of L posterior canal when tested in horizontal canal postion. L torsional upbeating nystagmus (very brisk) Robbins-Hallpike, Right: Neg Horizontal Canals, Left: Pt with [...] (more content not included)... Normal [facility] Urinalysis complete panel (U )on 06-11-2024 Bilirubin Ql (U) Negative Normal Negative [facility] Comment on above: Order Comment: Speci men Type: URINE SPECIMENOrdering Facility: [facility] Address: [address] [place] [address] Performed By: #### 2 4356-8 ####[facility] [id number] [address] [place] Clarity (Unsp spec) Clear Normal Clear [facility] Comment on above: Order Comment: Speci men Type: URINE SPECIMENOrdering Facility: [facility] Address: [address] [place] [address] Performed By: #### 2 4356-8 ####[facility] [id number] [address] [place] Color (U) Light Yellow Normal yellow [facility] Comment on above: Order Comment: Speci men Type: URINE SPECIMENOrdering Facility: [facility] Address: [address] [place] [address] Performed By: #### 2 4356-8 ####[facility] [id number] [address] [place] Glucose Test strip (U) [Mass/Vol] Negative Normal Trace, Negative [facility] Comment on above: Order Comment: Speci men Type: URINE SPECIMENOrdering Facility: [facility] Address: [address] [place] [address] Performed By: #### 2 4356-8 ####[facility] [id number] [address] [place] Hemoglobin Ql (U) Trace Normal Negative, Trace [facility] Comment on above: Order Comment: Speci men Type: URINE SPECIMENOrdering Facility: [facility] Address: [address] [place] [address] Performed By: #### 2 4356-8 ####[facility] [id number] [address] Ketones Ql (U) Negative Normal Negative, Trace [facility] Comment on above: Order Comment: Speci men Type: URINE SPECIMENOrdering Facility: [facility] Address: [address] [place] [address] Performed By: #### 2 4356-8 ####[facility] [id number] [address] Leukocyte esterase Test strip Ql (U) Negative Normal Negative, 25 Jose Luis/uL [facility] Comment on above: Order Comment: Speci men Type: URINE SPECIMENOrdering Facility: [facility] Address: [address] [place] [address] Performed By: #### 2 4356-8 ####[facility]ATORYCLIA [id number] [address] STATES [facility] Nitrite Ql (U) Negative Normal Negative [facility] Comment on above: Order Comment: Speci men Type: URINE SPECIMENOrdering Facility: [facility] Address: [address] [place] [address] Performed By: #### 2 4356-8 ####[facility]ATORYCLIA [id number] [address] [place] pH (U) [pH] High 5.0-8.0 [facility] Comment on above: Order Comment: Speci men Type: URINE SPECIMENOrdering Facility: [facility] Address: [address] [place] [address] Performed By: #### 2 4356-8 ####[facility]ATORYCLIA [id number] [address] Protein (U) [Mass/Vol] 1+ Abnormal Trace , Negative [facility] Comment on above: Order Comment: Speci men Type: URINE SPECIMENOrdering Facility: [facility] Address: [address] [place] [address] Performed By: #### 2 4356-8 ####[facility]ATORYCLIA [id number] [address] STATES [facility] RBC LM.HPF (Urine sed) [#/Area] 6-10 /HPF Abnormal 0-3 /HPF [facility] Comment on above: Order Comment: Speci men Type: URINE SPECIMENOrdering Facility: [facility] Address: [address] [place] [address] Performed By: #### 2 4356-8 ####[facility]ORYCLIA [id number] [address] [place] Specific gravity (U) [Rel density] 1.039 High 1.005-1.030 [facility] Comment on above: Order Comment: Speci men Type: URINE SPECIMENOrdering Facility: [facility] Address: [address] [place] [address] Performed By: #### 2 4356-8 ####[facility]ATORYCLIA [id number] [address] Urobilinogen Ql (U) Normal Normal Normal [facility] Comment on above: Order Comment: Speci men Type: URINE SPECIMENOrdering Facility: [facility] Address: [address] [place] [address] Performed By: #### 2 4356-8 ####[facility]ATORYCLIA [id number] [address] STATES [facility] WBC LM.HPF (Urine sed) [#/Area] 0-5 /HPF Normal 0-5 /HPF [facility] Comment on above: Order Comment: Speci men Type: URINE SPECIMENOrdering Facility: [facility] Address: [address] [place] [address] Performed By: #### 2 4356-8 ####[facility]ORYCLIA [id number] [address] [place] aPTT PPPon 06-11-2024 aPTT Coag (PPP) [Time] 28.2 s Normal 23.0-32.4 [facility] Comment on above: Order Comment: Speci men Type: BLOOD SPECIMENOrdering Facility: [facility] Address: [address] [place] [address] Performed By: #### 1 4979-9 ####[facility]ORYCLIA [id number] [address] aPTT Coag (PPP) [Time] 28.9 s Normal 23.0-32.4 [facility] Comment on above: Order Comment: Speci men Type: BLOOD SPECIMEN [facility] Facility: [facility] Address: [address] [place] [address] Performed By: #### 2 4321-2, 46166-2, #### [facility] CLIA [id number] [address] CBC W Auto Differential pane l (Bld)on 06-10-2024 Basophils (Bld) [#/Vol] 0.04 10*3/uL Normal <0.11 [facility] Comment on above: Order Comment: Speci men Type: BLOOD SPECIMEN [facility] Facility[facility] Address: [address] [place] [address] Performed By: #### 2 4321-2, 16584-0, #### [facility] CLIA [id number] [address] Basophils/100 WBC (Bld) 0.7 % Normal [facility] Comment on above: Order Comment: Speci men Type: BLOOD SPECIMEN [facility] Address: [address] [place] [address] Performed By: #### 2 4321-2, 69054-5, #### [facility] CLIA [id number] [address] Differential cell count method Nom (Bld) Auto Normal [facility] Comment on above: Order Comment: Speci men Type: BLOOD SPECIMEN [facility] Facility: [facility] Address: [address] [place] [address] Performed By: #### 2 4321-2, 83267-9, #### [facility] CLIA [id number] [address] [place] Eosinophils (Bld) [#/Vol] 10*3/uL Normal <0.46 [facility] Comment on above: Order Comment: Speci men Type: BLOOD SPECIMEN [facility] Facility[facility] Address: [address] [place] [address] Performed By: #### 2 4321-2, 25241-2, #### [facility] CLIA [id number] [address] [place] Eosinophils/100 WBC (Bld) 0.2 % Normal [facility] Comment on above: Order Comment: Speci men Type: BLOOD SPECIMEN [facility] Address: [address] [place] [address] Performed By: #### 2 4320-2, 57528-7, #### [facility] CLIA [id number] [address] [place] Erythrocyte distribution width (RBC) [Ratio] 15.6 % High 11.5-15.0 [facility] Comment on above: Order Comment: Speci men Type: BLOOD SPECIMEN [facility] Facility[facility] Address: [address] [place] [address] Performed By: #### 2 1-2, 66696-1, #### [facility] CLIA [id number] [address] [place] Hematocrit (Bld) [Volume fraction] 37.5 % Normal 36.0-46.0 [facility] Comment on above: Order Comment: Speci men Type: BLOOD SPECIMEN [facility] Facility[facility] Address: [address] [place] [address] Performed By: #### 2 4321-2, 61926-6, #### [facility] CLIA [id number] [address] [place] Hemoglobin (Bld) [Mass/Vol] 11.4 g/dL Low 11.5-15.5 [facility] Comment on above: Order Comment: Speci men Type: BLOOD SPECIMEN [facility] Address: [address] [place] [address] Performed By: #### 2 4321-2, 97424-8, #### [facility] CLIA [id number] [address] [place] [address] [place] Immature granulocytes (Bld) [#/Vol] 10*3/uL Normal <0.10 [facility] Comment on above: Order Comment: Speci men Type: BLOOD SPECIMEN [facility] Address: [address] [place] [address] Performed By: #### 2 4321-2, 63184-1, #### [facility] CLIA [id number] [address] [place] Immature granulocytes/100 WBC (Bld) 0.4 % Normal [facility] Comment on above: Order Comment: Speci men Type: BLOOD SPECIMEN [facility] Address: [address] [place] [address] Performed By: #### 2 1-2, 60861-8, #### [facility] CLIA [id number] [address] [place] [address] [place] Lymphocytes (Bld) [#/Vol] 0.61 10*3/uL Low 1.00-4.00 [facility] Comment on above: Order Comment: Speci men Type: BLOOD SPECIMEN [facility] Facility[facility] Address: [address] [place] [address] Performed By: #### 2 1-2, 28471-5, #### [facility] CLIA [id number] [address] [place] Lymphocytes/100 WBC (Bld) 10.8 % Normal [facility] Comment on above: Order Comment: Speci men Type: BLOOD SPECIMEN [facility] Facility: [facility] Address: [address] [place] [address] Performed By: #### 2 4321-2, 78368-9, #### [facility] CLIA [id number] [address] MCH (RBC) [Entitic mass] 26.2 pg Normal 26.0-34.0 [facility] Comment on above: Order Comment: Speci men Type: BLOOD SPECIMEN [facility] Address: [address] [place] [address] Performed By: #### 2 4321-2, 08685-2, #### [facility] CLIA [id number] [address] MCHC (RBC) [Mass/Vol] 30.4 g/dL Low 30.5-36.0 [facility] Comment on above: Order Comment: Speci men Type: BLOOD SPECIMEN [facility] Facility[facility] Address: [address] [place] [address] Performed By: #### 2 4320-2, 02162-8, #### [facility] CLIA [id number] [address] MCV (RBC) [Entitic vol] 86.2 fL Normal 80.0-100.0 [facility] Comment on above: Order Comment: Speci men Type: BLOOD SPECIMEN [facility] Address: [address] [place] [address] Performed By: #### 2 1-2, 46067-6, #### [facility] CLIA [id number] [address] Monocytes (Bld) [#/Vol] 0.21 10*3/uL Normal <0.87 [facility] Comment on above: Order Comment: Speci men Type: BLOOD SPECIMEN [facility] Address: [address] [place] [address] Performed By: #### 2 4321-2, 26035-6, #### [facility] CLIA [id number] 1 [place] [address] [place] Monocytes/100 WBC (Bld) 3.7 % Normal A [facility] Comment on above: Order Comment: Speci men Type: BLOOD SPECIMEN [facility] Address: [address] [place] [address] Performed By: #### 2 4321-2, 11033-4, #### [facility] CLIA [id number] [address] [place] [address] [place] Neutrophils (Bld) [#/Vol] 4.78 10*3/uL Normal 1.45-7.50 [facility] Comment on above: Order Comment: Speci men Type: BLOOD SPECIMEN [facility] Address: [address] [place] [address] Performed By: #### 2 1-2, 53299-2, #### [facility] CLIA [id number] [address] [place] [address] [place] Neutrophils/100 WBC (Bld) 84.2 % Normal [facility] Comment on above: Order Comment: Speci men Type: BLOOD SPECIMEN [facility] Address: [address] [place] [address] Performed By: #### 2 1-2, 40024-3, #### [facility] CLIA [id number] [address] [place] [address] [place] Nucleated RBC (Bld) [#/Vol] 10*3/uL Normal <0.01 [facility] Comment on above: Order Comment: Speci men Type: BLOOD SPECIMEN [facility] Address: [address] [place] [address] Performed By: #### 2 1-2, 84453-6, #### [facility] CLIA [id number] 1 [place] [address] [place] Nucleated RBC/100 WBC (Bld) [Ratio] 0.0 /100 WBC Normal [facility] Comment on above: Order Comment: Speci men Type: BLOOD SPECIMEN [facility] Address: [address] [place] [address] Performed By: #### 2 4321-2, 16360-6, #### [facility] CLIA [id number] [address] [place] Platelet mean volume (Bld) [Entitic vol] 9.4 fL Normal 9.0-12.7 [facility] Comment on above: Order Comment: Speci men Type: BLOOD SPECIMEN [facility] Address: [address] [place] [address] Performed By: #### 2 4321-2, 06742-9, #### [facility] CLIA [id number] [address] [place] Platelets (Bld) [#/Vol] 330 10*3/uL Normal 150-400 [facility] Comment on above: Order Comment: Speci men Type: BLOOD SPECIMEN [facility] Address: [address] [place] [address] Performed By: #### 2 1-2, 97058-5, #### [facility] CLIA [id number] [address] [place] [address] [place] RBC (Bld) [#/Vol] 4.35 10*6/uL Normal 3.90-5.20 [facility] Comment on above: Order Comment: Speci men Type: BLOOD SPECIMEN [facility] Address: [address] [place] [address] Performed By: #### 2 4321-2, 55145-1, #### [facility] CLIA [id number] [address] [place] [address] [place] WBC (Bld) [#/Vol] 5.67 10*3/uL Normal 3.70-11.00 [facility] Comment on above: Order Comment: Speci men Type: BLOOD SPECIMEN [facility] Address: [address] [place] [address] Performed By: #### 2 4321-2, 84290-3, 52239-8 #### [facility] CLIA [id number] [address] Comprehensive metabolic 2000 panelon 06-10-2024 Albumin [Mass/Vol] 4.2 g/dL Normal 3.9-4.9 [facility] Comment on above: Order Comment: Speci men Type: BLOOD SPECIMENOrdering Facility: [facility] Address: [address] [place] [address] Performed By: #### 3 016-3, 74823-6, 3024-7, 43595-7 ####[facility]ATORYCLIA [id number] [address] OF [facility] ALP [Catalytic activity/Vol] 99 U/L Normal 34-123 [facility] Comment on above: Order Comment: Speci men Type: BLOOD SPECIMENOrdering Facility: [facility] Address: [address] [place] [address] Performed By: #### 3 016-3, 59160-5, 3024-7, 97553-5 ####[facility]ORYCLIA [id number] [address] OF [facility] ALT With P-5'-P [Catalytic activity/Vol] 8 U/L Normal 7-38 [facility] Comment on above: Order Comment: Speci men Type: BLOOD SPECIMENOrdering Facility: [facility] Address: [address] [place] [address] Performed By: #### 3 016-3, 08071-4, 3024-7, 56089-2 ####[facility]ORYCLIA [id number] [address] Anion gap [Moles/Vol] 12 mmol/L Normal 8-15 [facility] Comment on above: Order Comment: Speci men Type: BLOOD SPECIMENOrdering Facility: [facility] Address: [address] [place] [address] Performed By: #### 3 016-3, 55907-4, 3023-7, 34915-9 ####[facility]ATORYCLIA [id number] [place] [address] [place] AST With P-5'-P [Catalytic activity/Vol] 12 U/L Low 13-35 [facility] Comment on above: Order Comment: Speci men Type: BLOOD SPECIMENOrdering Facility: [facility] Address: [address] [place] [address] Performed By: #### 3 016-3, 46478-8, 7, 63571-3 ####[facility]ORYCLIA [id number] [place] [address] [place] Bilirubin [Mass/Vol] 0.4 mg/dL Normal 0.2-1.3 [facility] Comment on above: Order Comment: Speci men Type: BLOOD SPECIMENOrdering Facility: [facility] Address: [address] [place] [address] Performed By: #### 3 016-3, 21233-0, 3024-01, 05638-1 ####[facility]ATORYCLIA [id number] [place] [address] [place] Calcium [Mass/Vol] 9.5 mg/dL Normal 8.5-10.2 [facility] Comment on above: Order Comment: Speci men Type: BLOOD SPECIMENOrdering Facility: [facility] Address: [address] [place] [address] Performed By: #### 3 016-3, 56326-4, 7, 72336-9 ####[facility]ATORYCLIA [id number] [place] [id number] [place] Chloride [Moles/Vol] 101 mmol/L Normal 98-107 [facility] Comment on above: Order Comment: Speci men Type: BLOOD SPECIMENOrdering Facility: [facility] Address: [address] [place] [address] Performed By: #### 3 016-3, 15705-6, 7, 94872-6 ####[facility]ORYCLIA [id number] [place] [address] [place] CO2 [Moles/Vol] 23 mmol/L Normal 22-30 [facility] Comment on above: Order Comment: Rhina mason Type: BLOOD SPECIMENOrdering Facility: [facility] Address: [address] [place] [address] Performed By: #### 3 016-3, 72871-4, 3024-7, 89450-1 ####[facility]ORYCLIA [id number] [address] STATES OF [facility] Creatinine [Mass/Vol] 0.87 mg/dL Normal 0.58-0.96 [facility] Comment on above: Order Comment: Speci men Type: BLOOD SPECIMENOrdering Facility: [facility] Address: [address] [place] [address] Performed By: #### 3 016-3, 93775-2, 7, 35857-7 ####[facility] [id number] [address] Creatinine and Glomerular filtration rate.predicted panel (S/P/Bld) 66 mL/min/1.73m??? Normal >=60 [facility] Comment on above: Order Comment: Rhina mason Type: BLOOD SPECIMENOrdering Facility: [facility] Address: [address] [place] [address] Result Comment: Isa mated Glomerular Filtration Rate [...] actual GFR. Performed By: #### 3 016-3, 16142-5, 3024-7, 86801-0 ####[facility]ORYCLIA [id number] [place] [address] [place] Glucose [Mass/Vol] 157 mg/dL High 74-99 [facility] Comment on above: Order Comment: Speci men Type: BLOOD SPECIMENOrdering Facility: [facility] Address: [address] [place] [place] [id number] Result Comment: The [place] Diabetes Association (ADA) provides guidance for cutoff [...] Standards of Medical Care in Diabetes 2016, [place] Diabetes Association. Diabetes Care. 2016.39(Suppl 1). Performed By: #### 3 016-3, 37793-7, 3024-7, 78576-3 ####[facility]ORYCLIA [id number] [place] [address] [place] Potassium [Moles/Vol] 4.3 mmol/L Normal 3.7-5.1 [facility] Comment on above: Order Comment: Rhina mason Type: BLOOD SPECIMENOrdering Facility: [facility] Address: [address] [place], [place] [address] Performed By: #### 3 016-3, 81433-6, 4-7, 92179-5 ####[facility]ORYCLIA [id number] [place] [address] [place] Protein [Mass/Vol] 7.1 g/dL Normal 6.3-8.0 [facility] Comment on above: Order Comment: Rhina mason Type: BLOOD SPECIMENOrdering Facility: [facility] Address: [address] [place], [place] [address] Performed By: #### 3 016-3, 46716-0, 3023-7, 08876-2 ####[facility]ORYCLIA [id number] [place] [address] [place] Sodium [Moles/Vol] 136 mmol/L Normal 136-144 [facility] Comment on above: Order Comment: Speci men Type: BLOOD SPECIMENOrdering Facility: [facility] Address: [address] [place], [place] [address] Performed By: #### 3 016-3, 18438-1, 3024-7, 42079-3 ####[facility]ATORYCLIA [id number] [place] [address] [place] OF [facility] Urea nitrogen [Mass/Vol] 14 mg/dL Normal 7- [facility] Comment on above: Order Comment: Speci men Type: BLOOD SPECIMENOrdering Facility: [facility] Address: [address] [place], [place] [address] Performed By: #### 3 016-3, 77882-3, 3024-7, 22915-5 ####[facility]ORYCLIA [id number] [place] [id number] [place] ECG COMPLETEon 06-10-2024 ECG COMPLETE Ventricular Rate : 6 4 BPM QRS Duration : 90 ms Q-T Interval : 424 ms QTC Calculation(Bazett) : 437 ms Calculated R [place] : 56 degrees Calculated T [place] : 20 degrees ATRIAL FIBRILLATION ABNORMAL ECG NO PREVIOUS ECGS AVAILABLE Confirmed by SAKINA MELLO MD ([id number]) on 12/07/2024 10:44:28 PM NAME : MEL GUADARRAMA PID : [id number] : 1940 Gender : Female Race : ORD : [id number] Procedure Date : Jun 10 2024 23:35:14 Edit Date : Dec 07 2024 22:44:32 Diagnosis: ATRIAL FIBRILLATION ABNORMAL ECG NO PREVIOUS ECGS AVAILABLE Confirmed by SAKINA MELLO MD ([id number]) on 12/07/2024 10:44:28 PM Test Reason : Chest Pain Location : 4 : [facility] EM Overread By : SAKINA MELLO MD Edited By : SAKINA MELLO MD Referred By : , Acquired by : REGAN RODRIGES [facility] ED NOTEon 06-10-2024 ED NOTE HNO ID: [id number] Author: DAMARIS HERNANDEZ RN Service: ? Author Type: Registered Nurse Type: ED Notes Filed: 06/10/2024 23:06 Note Text: Bed: 36-ED Expected date: Expected time: Means of arrival: Comments: RAMESH Barrett [facility] ED PROV NOTEon 06-10-2024 ED PROV NOTE HNO ID: [id number] Author: THOMAS SERNA MD Service: Emergency Medicine [...] THOMAS SERNA 06/11/24 0519 Normal [facility] ED PROV NOTE HNO ID: [id number] Author: THOMAS SERNA MD Service: Emergency Medicine [...] (more content not included)... Normal [facility] HIGH SENSITIVITY TROPONIN T (INITIAL)on 06-10-2024 Troponin T.cardiac High sensitivity method [Mass/Vol] 14 ng/L High <12 [facility] Comment on above: Order Comment: Rhina mason Type: BLOOD SPECIMENOrdering Facility: [facility] Address: [address] [place] [place] [id number] Performed By: #### L [id number] ####[facility]ORYCLIA [id number] [place] [address] [place] HbA1c (Bld)on 06-10-2024 Average glucose Estimated from glycated hemoglobin (Bld) [Mass/Vol] 120 mg/dL Normal [facility] Comment on above: Order Comment: Rhina mason Type: BLOOD SPECIMEN [facility] Address: [address] [place] [address] Result Comment: eAG: (Estimated average glucose) is a calculated value from HgbA1c and is traveling representative of the average blood glucose level in the last 2-3 month period. Performed By: #### 2 4321-2, 06048-8, #### [facility] CLIA [id number] [address] OF [facility] HbA1c (Bld) [Mass fraction] 5.8 % High 4.3-5.6 [facility] Comment on above: Order Comment: Rhina mason Type: BLOOD SPECIMEN [facility] Address: [address] [place] [address] Result Comment: [place] Diabetes Association guidelines indicate that patients with HgbA1c in the range 5.7-6.4% are at increased risk for development of diabetes, and intervention by lifestyle modification may be beneficial. HgbA1c greater or equal to 6.5% is considered diagnostic of diabetes. Performed By: #### 2 4321-2, 96271-2, #### [facility] CLIA [id number] [address] STATES OF [facility] Lipid 1996 panelon 4 Cholesterol [Mass/Vol] 227 mg/dL High <200 [facility] Comment on above: Order Comment: Rhina mason Type: BLOOD SPECIMENOrdering Facility: [facility] Address: [address] [place] [address] Result Comment: <200 mg/dL, Desirable 200-239 mg/dL, Borderline high >239 mg/dL, High Performed By: #### 3 016-3, 77614-6, 3024-7, 45472-3 ####[facility]ORYCLIA [id number] [address] STATES OF [facility] Cholesterol in HDL [Mass/Vol] 78 mg/dL Normal >39 [facility] Comment on above: Order Comment: Rhina mason Type: BLOOD SPECIMENOrdering Facility: [facility] Address: [address] [place] [address] Result Comment: 40-5 9 mg/dL, Acceptable >59 mg/dL, High: Negative risk factor for coronary heart disease <40 mg/dL, Low: Positive risk factor for coronary heart disease Performed By: #### 3 016-3, 56243-3, 302-7, 66207-5 ####[facility]ORYCLIA [id number] [address] STATES OF [facility] Cholesterol in LDL [Mass/Vol] 139 mg/dL High <100 [facility] Comment on above: Order Comment: Speci men Type: BLOOD SPECIMENOrdering Facility: [facility] Address: [address] [place] [address] Result Comment: <100 mg/dL, Optimal 100-129 mg/dL, Near optimal/above optimal 130-159 mg/dL, Borderline high 160-189 mg/dL, High >189 mg/dL, Very high Secondary prevention optimal LDL Cholesterol levels are recommended to be < 70 mg/dL Performed By: #### 3 016-3, 17348-8, 3023-7, 95196-5 ####[facility] LABORATORYCLIA [id number] [address] Cholesterol in LDL/Cholesterol in HDL [Mass ratio] 1.78 {ratio} Normal <2.54 [facility] Comment on above: Order Comment: Speci men Type: BLOOD SPECIMENOrdering Facility: [facility] Address: [address] [place] [address] Result Comment: Refe rence: 1. National Cholesterol Education Program ATP III Guideline At-A-Glance Quick Desk Reference: National Heart, Lung, and Blood [place]. National Institutes of Health. 2001: NIH Publication No. 01-3305. 2. An International Atherosclerosis Society position paper: global recommendations for the management of dyslipidemia: executive summary, Atherosclerosis. 2014: 232(2):410-413. Performed By: #### 3 016-3, 01235-7, 3024-7, 48176-0 ####[facility]ATORYCLIA [id number] [address] OF [place] Cholesterol in VLDL [Mass/Vol] 10 mg/dL Normal <30 [facility] Comment on above: Order Comment: Speci men Type: BLOOD SPECIMENOrdering Facility: [facility] Address: [address] [place] [address] Performed By: #### 3 016-3, 94659-5, 3023-7, 67078-0 ####[facility]ORATORYCLIA [id number] [address] Cholesterol non HDL [Mass/Vol] 149 mg/dL High <130 [facility] Comment on above: Order Comment: Speci men Type: BLOOD SPECIMENOrdering Facility: [facility] Address: [address] [place] [address] Result Comment: <130 mg/dL, Optimal 130-159 mg/dL, Near optimal/above optimal 160-189 mg/dL, Borderline high 190-219 mg/dL, High >219 mg/dL, Very high Secondary prevention optimal non HDL Cholesterol levels are recommended to be <100 mg/dL Performed By: #### 3 016-3, 63663-5, 7, 85025-1 ####[facility]ATORYCLIA [id number] [address] Cholesterol.total/Pastora sterol in HDL [Mass ratio] 2.91 {ratio} Normal <5.10 [facility] Comment on above: Order Comment: Speci men Type: BLOOD SPECIMENOrdering Facility: [facility] Address: [address] [place] [address] Performed By: #### 3 016-3, 66909-0, 7, 46268-7 ####[facility]ORATORYCLIA [id number] [address] [place] FASTING TIME Normal [facility] Comment on above: Order Comment: Speci men Type: BLOOD SPECIMENOrdering Facility: [facility] Address: [address] [place] [address] Result Comment: Unkn own Performed By: #### 3 016-3, 67597-7, 7, 07491-7 ####[facility]ATORYCLIA [id number] [address] [place] Triglyceride [Mass/Vol] 49 mg/dL Normal <150 [facility] Comment on above: Order Comment: Speci men Type: BLOOD SPECIMENOrdering Facility: [facility] Address: [address] [place] [address] Result Comment: <150 mg/dL, Normal 150-199 mg/dL, Borderline high 200-499 mg/dL, High >499 mg/dL, Very high Performed By: #### 3 016-3, 64528-3, 3024-7, 00455-8 ####[facility]ATORYCLIA [id number] [address] OF [facility] PT panel Coag (PPP)on 2023 INR Coag (PPP) [Relative time] 1.3 {INR} Normal 0.9-1.3 [facility] Comment on above: Order Comment: Rhina mason Type: BLOOD SPECIMENOrdering Facility: [facility] Address: [address] [place] [address] Result Comment: Mayra min K Antagonist (VKA) Therapeutic Range: INR 2 to 3 (Target INR of 2.5) Note: For patients treated with VKA drugs, such as warfarin, the [place] 2012 Guideline recommends [...] 70: 252-289 Performed By: #### 3 4528-0 ####[facility]ATORYCLIA [id number] [place] [id number] [place] PT Coag (PPP) [Time] 13.2 s High 9.7-13.0 [facility] Comment on above: Order Comment: Rhina mason Type: BLOOD SPECIMENOrdering Facility: [facility] Address: [address] [place] [address] Performed By: #### 3 4528-0 ####[facility]ATORYCLIA [id number] [address] OF [facility] T4 Free SerPl-mCncon 024 Free T4 [Mass/Vol] 1.3 ng/dL Normal 0.9-1.7 [facility] Comment on above: Order Comment: Speci men Type: BLOOD SPECIMENOrdering Facility: [facility] Address: [address] [place] [address] Performed By: #### 3 016-3, 51050-8, 3024-7, 20451-3 ####[facility] LABORATORYCLIA [id number] [address] TSH SerPl-aCncon 06-10-2024 TSH Qn 1.620 m[IU]/L Normal 0.270-4.200 [facility] Comment on above: Order Comment: Speci men Type: BLOOD SPECIMENOrdering Facility: [facility] Address: [address] [place] [address] Performed By: #### 3 016-3, 34883-7, 3024-7, 55433-3 ####[facility]ATORYCLIA [id number] [address] OF [facility] 36on 06-04-2024 36 Normal [facility] 36on 06-01-2024 36 Normal [facility] Progress Noteon 05-22-2024 Progress Note Normal [facility] PT Coag (Bld) [Time]on 05-21 INR Coag (PPP) [Relative time] 2.8 {INR} Abnormal 0.9 - 1.1 [facility] Interpretation and review of laboratory results Abnormal [facility] Progress Noteon 05-21-2024 Progress Note Normal [facility] Progress Note INR reported on b y Christin with [facility]. Christin can be reached at [phone] with questions. Normal [facility] Protime-INRon 05-21-2024 PT Coag (Bld) [Time] 33.9 s Abnormal 9.0 - 12.0 [facility] Heart TransthoracicOrdere d By: Davian Landrum on 05-14-2024 Ao Root Index 1.63 cm/m2 [facility] Work Phone: Aortic Arch 2.6 cm [facility] Work Phone: Aortic Root 2.8 cm [facility] Work Phone: Aortic Sinus Valsalva 2.8 cm [facility] Work Phone: Aortic Sinus Valsalva Index 1.63 cm/m2 [facility] Work Phone: Ascending Aorta 2.7 cm [facility] Work Phone: Ascending Aorta Index 1.57 cm/m2 [facility] Work Phone: AV Area by Peak Velocity 1.4 cm2 [facility] Work Phone: AV Area by VTI 1.4 cm2 [facility] Work Phone: AV Mean Gradient 3 mmHg [facility] Work Phone: AV Mean Velocity 0.9 m/s [facility] Work Phone: AV Peak Gradient 7 mmHg [facility] Work Phone: AV Peak Velocity 1.3 m/s [facility] Work Phone: AV Velocity Ratio 0.62 [facility] Work Phone: AV VTI 30 cm [facility] Work Phone: POLA/BSA Peak Velocity 0.8 cm2/m2 [facility] Work Phone: POLA/BSA VTI 0.8 cm2/m2 [facility] Work Phone: E/E' Lateral 14 [facility] Work Phone: E/E' Ratio (Averaged) 18 [facility] Work Phone: E/E' Septal 22 [facility] Work Phone: EF BP 61 % 55 - 100 % [facility] [employer] Work Phone: Est. RA Pressure 3 mmHg [facility] Work Phone: [phone] Fractional Shortening 2D 30 % 28 - 44 % [facility] [employer] Work Phone: [phone] Global Longitudinal Strain -15.3 % [facility] [employer] Work Phone: Interpretation and review of laboratory results Abnormal [facility] [employer] Work Phone: IVC Diameter 1.8 cm [facility] Work Phone: IVSd 1 cm Abnormal 0.6 - 0.9 cm [facility] [employer] Work Phone: [phone] LA Diameter 4.1 cm [facility] [employer] Work Phone: LA Size Index 2.38 cm/m2 [facility] [employer] Work Phone: LA Volume 2C 63 mL Abnormal 22 - 52 mL [facility] [employer] Work Phone: LA Volume 4C 80 mL Abnormal 22 - 52 mL [facility] [employer] Work Phone: LA Volume A/L 76 mL [facility] Work Phone: LA Volume BP 72 mL Abnormal 22 - 52 mL [facility] [employer] Work Phone: LA Volume Index 2C 37 mL/m2 Abnormal 16 - 34 mL/m2 [facility] [employer] Work Phone: LA Volume Index 4C 47 mL/m2 Abnormal 16 - 34 mL/m2 [facility] [employer] Work Phone: LA Volume Index A/L 44 mL/m2 16 - 34 mL/m2 [facility] [employer] Work Phone: LA Volume Index BP 42 ml/m2 Abnormal 16 - 34 ml/m2 [facility] [employer] Work Phone: LA/AO Root Ratio 1.46 [facility] Work Phone: LV E' Lateral Velocity 11 cm/s [facility] Work Phone: LV E' Septal Velocity 7 cm/s [facility] Work Phone: LV EDV A2C 45 mL [facility] [employer] Work Phone: LV EDV A4C 48 mL [facility] Work Phone: LV EDV BP 47 mL Abnormal 56 - 104 mL [facility] Work Phone: LV EDV Index A2C 26 mL/m2 [facility] Work Phone: LV EDV Index A4C 28 mL/m2 [facility] Work Phone: LV EDV Index BP 27 mL/m2 [facility] Work Phone: LV Ejection Fraction A2C 68 % [facility] Work Phone: LV Ejection Fraction A4C 55 % [facility] Work Phone: LV ESV A2C 14 mL [facility] Work Phone: LV ESV A4C 21 mL [facility] Work Phone: LV ESV BP 18 mL Abnormal 19 - 49 mL [facility] Work Phone: LV ESV Index A2C 8 mL/m2 [facility] Work Phone: LV ESV Index A4C 12 mL/m2 [facility] Work Phone: LV ESV Index BP 10 mL/m2 [facility] Work Phone: LV Mass 2D 142.5 g 67 - 162 g [facility] Work Phone: LV Mass 2D Index 82.8 g/m2 43 - 95 g/m2 [facility] Work Phone: LV RWT Ratio 0.47 [facility] Work Phone: LVIDd 4.3 cm 3.9 - 5.3 cm [facility] Work Phone: [phone] LVIDd Index 2.5 cm/m2 [facility] Work Phone: LVIDs 3 cm [facility] Work Phone: LVIDs Index 1.74 cm/m2 [facility] Work Phone: LVOT Area 2.5 cm2 [facility] Work Phone: LVOT Cardiac Output 3.2 liter/mi nut e [facility] Work Phone: LVOT Diameter 1.8 cm [facility] Work Phone: LVOT Mean Gradient 1 mmHg [facility] Work Phone: LVOT Peak Gradient 2 mmHg [facility] Work Phone: LVOT Peak Velocity 0.8 m/s [facility] Work Phone: LVOT Stroke Volume Index 25.1 mL/m2 [facility] Work Phone: LVOT SV 43.2 ml [facility] Work Phone: [phone] LVOT VTI 17 cm [facility] Work Phone: [phone] LVOT:AV VTI Index 0.57 [facility] ealth Work Phone: [phone] LVPWd 1 cm Abnormal 0.6 - 0.9 cm [facility] Work Phone: [phone] MV A Velocity 0.41 m/s [facility] Work Phone: MV Area by PHT 3.3 cm2 [facility] Work Phone: MV Area by VTI 1.2 cm2 [facility] Work Phone: MV E Velocity 1.54 m/s [facility] Work Phone: MV E Wave Deceleration Time 180.9 ms [facility] Work Phone: MV E/A 3.76 [facility] Work Phone: MV Max Velocity 1.7 m/s [facility] Work Phone: MV Mean Gradient 4 mmHg [facility] Work Phone: MV Mean Velocity 0.9 m/s [facility] Work Phone: MV Peak Gradient 11 mmHg [facility] Work Phone: MV PHT 66.9 ms [facility] Work Phone: MV VTI 35.1 cm [facility] Work Phone: MV:LVOT VTI Index 2.06 [facility] Work Phone: [phone] RA Area 4C 55.1 mL [facility] Work Phone: [phone] RV Basal Dimension 2.7 cm [facility] Work Phone: [phone] RV Free Wall Peak S' 11 cm/s [facility] Work Phone: [phone] RV Longitudinal Dimension 4.9 cm [facility] Work Phone: [phone] RV Mid Dimension 2.1 cm [facility] Work Phone: [phone] RVSP 54 mmHg [facility] Work Phone: [phone] Sinotubular Junction 2.7 cm [facility] Work Phone: [phone] TAPSE 1.5 cm Abnormal 1.7 cm [facility] Work Phone: [phone] TR Max Velocity 3.56 m/s [facility] Work Phone: [phone] TR Peak Gradient 51 mmHg [facility] Work Phone: [phone] TR Peak Velocity PISA 3.6 m/s [facility] Work Phone: [phone] TR VTI 120.8 cm [facility] Work Phone: [phone] TV EROA 0.2 cm2 [facility] Work Phone: TV Nyquist Velocity 39 cm/s [facility] Work Phone: [phone] [facility] Work Phone: Heart Transthoracicon There is a 1.3 [...] time] 2.7 {INR} Abnormal 0.9 - 1.1 [facility] Interpretation and review of laboratory results Abnormal [facility] Progress Noteon 05-09-2024 Progress Note Graciela from [facility] call ed in results. Normal [facility] Progress Note Normal [facility] Protime-INRon 05-09-2024 PT Coag (Bld) [Time] 32.1 s Abnormal 9.0 - 12.[address] [facility] PT Coag (Bld) [Time]on 05-01 INR Coag (PPP) [Relative time] 2.7 {INR} Abnormal 0.9 - 1.1 [facility] Interpretation and review of laboratory results Abnormal [facility] Progress Noteon 05-01-2024 Progress Note Normal [facility] Progress Note Tia- [facility]- [phone] Normal [facility] Protime-INRon 05-01-2024 PT Coag (Bld) [Time] 32.4 s Abnormal 9.0 - 12.[address] [facility] 36on 04-27-2024 36 Pt requested refill on warfarin 5mg. Sent to [facility]. Receipt confirmed by pharmacy. Normal [facility] Progress Noteon 04-27-2024 Progress Note Normal [facility] Progress Note Tia- [facility]- [phone] Normal [facility] Progress Noteon 04-25-2024 Progress Note Normal [facility] Progress Noteon 04-23-2024 Progress Note Normal [facility] Progress Note Christin [facility] called any questions or concerns [phone]. Normal [facility] PT Coag (Bld) [Time]on 04-19 INR Coag (PPP) [Relative time] 2.1 {INR} Abnormal 0.9 - 1.1 [facility] Interpretation and review of laboratory results Abnormal [facility] Progress Noteon 04-19-2024 Progress Note Normal [facility] Progress Note Graciela with [facility] repo rts INR on Graciela can be reached at [phone] with any questions. Normal [facility] Protime-INRon 04-19-2024 PT Coag (Bld) [Time] 24.9 s Abnormal 9.0 - 12.[address] [facility] Progress Noteon 04-16-2024 Progress Note Christin- [facility]- [phone] Normal [facility] Progress Note Normal [facility] Progress Noteon 04-14-2024 Progress Note Placed new order for POCT INR, [facility] had not received. Normal [facility] [id number] 04-13-2024 [id number] Normal [facility] APTTon 04-13-2024 aPTT Coag (Bld) [Time] 132.2 s Critically high 20.0-30. 5 [facility] Comment on above: Result Comment: ORDE R COMMENTS:NOTE: The therapeutic time for Heparin anticoagulation, based on Xa activity inhibition, is an APTT of 46-80 seconds. Performed By: #### L [id number], [id number] ####Material Requisitioner: VELMA VALADEZ ([id number])[facility])[address] [place] [address] BASIC METABOLIC PANELon 09-2 Anion gap [Moles/Vol] 2 mmol/L Low 3-13 [facility] Comment on above: Performed By: #### L AB15 ####Material Requisitioner: VELMA VALADEZ ([id number])[facility] ([facility])[address] [place] [address] Calcium [Mass/Vol] 9.0 mg/dL Normal 8.4-10.4 [facility] Comment on above: Performed By: #### L AB15 ####Material Requisitioner: VELMA VALADEZ ([id number])[facility] ([facility])[address] [place] [address] Chloride [Moles/Vol] 108 mmol/L High 98-107 [facility] Comment on above: Performed By: #### L AB15 ####Material Requisitioner: VELMA VALADEZ ([id number])[facility] ([facility])[address] [place] [address] CO2 [Moles/Vol] 25 mmol/L Normal 22-30 [facility] Comment on above: Performed By: #### L AB15 ####Material Requisitioner: VELMA VALADEZ ([id number])[facility])[address] [place] [address] Creatinine [Mass/Vol] 1.00 mg/dL Normal 0.52-1.04 [facility] Comment on above: Performed By: #### L AB15 ####Material Requisitioner: VELMA VALADEZ ([id number])[facility])[address] [place] [address] GLOMERULAR FILTRATION RATE ML/MIN/1.73 SQ M.PREDICTED 55.7 mL/min/1.73m*2 Low >60.0 [facility] Comment on above: Result Comment: Calc ulation based on the Chronic Kidney Disease Epidemiology Collaboration (CKD-EPI) equation refit without adjustment for race Performed By: #### L AB15 ####Material Requisitioner: VELMA VALADEZ ([id number])[facility] ([facility])[address] [place] [address] Glucose [Mass/Vol] 98 mg/dL Normal 70-100 [facility] Comment on above: Performed By: #### L AB15 ####Material Requisitioner: VELMA VALADEZ ([id number])[facility] ([facility])[address] [place] [address] Potassium [Moles/Vol] 4.3 mmol/L Normal 3.5-5.1 [facility] Comment on above: Performed By: #### L AB15 ####Material Requisitioner: VELMA VALADEZ ([id number])[facility] ([facility])[address] [place] [address] Sodium [Moles/Vol] 135 mmol/L Normal 135-145 [facility] Comment on above: Performed By: #### L AB15 ####Material Requisitioner: VELMA VALADEZ ([id number])[facility] ([facility])[address] [place] [address] Urea nitrogen [Mass/Vol] 18 mg/dL High 7-17 [facility] Comment on above: Performed By: #### L AB15 ####Material Requisitioner: VELMA VALADEZ ([id number])[facility] ([facility])[address] [place] [address] Basic metabolic 1998 panelon 04-13-2024 Anion gap [Moles/Vol] 2 mmol/L Low 3 - 13 mmol/L [facility] Calcium [Mass/Vol] 9.0 mg/dL 8.4 - 10. 4 mg/dL [facility] Chloride [Moles/Vol] 108 mmol/L High 98 - 10 7 mmol/L [facility] CO2 [Moles/Vol] 25 mmol/L 22 - 30 mmol/L [facility] Creatinine [Mass/Vol] 1.00 mg/dL 0.52 - 1.04 mg/dL [facility] GFR/1.73 sq M.predicted (S/P/Bld) [Vol rate/Area] 55.7 mL/min Low - PINF [facility] Comment on above: Calculation based on the Chronic Kidney Disease Epidemiology Collaboration (CKD-EPI) equation refit without adjustment for race Glucose [Mass/Vol] 98 mg/dL 70 - 100 mg/dL [facility] Interpretation and review of laboratory results Abnormal [facility] Potassium [Moles/Vol] 4.3 mmol/L 3.5 - 5.1 mmol/L [facility] Sodium [Moles/Vol] 135 mmol/L 135 - 145 mmol/L [facility] Urea nitrogen [Mass/Vol] 18 mg/dL High 7 - 17 mg/dL [facility] CARECOORDon 04-13-2024 [facility] Normal [facility] Normal [facility] CBC W Auto Differential pane l (Bld)on 04-13-2024 Basophils (Bld) [#/Vol] 0.0 10*3/uL 0.0 - 0.2 10*3/uL [facility] Basophils/100 WBC (Bld) 0.7 % 0.0 - 2.0 % [facility] Eosinophils (Bld) [#/Vol] 0.1 10*3/uL 0.0 - 0.5 10*3/uL [facility] Eosinophils/100 WBC (Bld) 2.6 % 0.0 - 6.0 % [facility] Erythrocyte distribution width (RBC) [Ratio] 14.5 % 11.5 - 15.0 % [facility] Hematocrit (Bld) [Volume fraction] 26.3 % Low 35.0 - 47.0 % [facility] Hemoglobin (Bld) [Mass/Vol] 8.6 g/dL Low 11.7 - 16.0 g/dL [facility] Immature granulocytes (Bld) [#/Vol] 0.0 10*3/uL NINF - 0.1 10*3/uL [facility] Immature granulocytes/100 WBC (Bld) 0.2 % 0.0 - 2.0 % [facility] Interpretation and review of laboratory results Abnormal [facility] Lymphocytes (Bld) [#/Vol] 1.4 10*3/uL 1.0 - 4.3 10*3/uL [facility] Lymphocytes/100 WBC (Bld) 33.5 % 15.0 - 45.0 % [facility] MCH (RBC) [Entitic mass] 29.8 pg 26.0 - 34.0 pg [facility] MCHC (RBC) [Mass/Vol] 32.7 % 30.5 - 36.0 % [facility] MCV (RBC) [Entitic vol] 91.0 fL 77.0 - 99.0 fL [facility] Monocytes (Bld) [#/Vol] 0.5 10*3/uL 0.0 - 0.9 10*3/uL [facility] Monocytes/100 WBC (Bld) 11.3 % 5.0 - 13.0 % [facility] Neutrophils (Bld) [#/Vol] 2.2 10*3/uL 1.8 - 7.5 10*3/uL [facility] Neutrophils/100 WBC (Bld) 51.7 % 38.0 - 82.0 % [facility] Nucleated RBC/100 WBC (Bld) [Ratio] 0.0 % [facility] Platelet mean volume (Bld) [Entitic vol] 9.4 fL 9.0 - 12.7 fL [facility] Platelets (Bld) [#/Vol] 317 10*3/uL 140 - 440 10*3/uL [facility] RBC (Bld) [#/Vol] 2.89 10*6/uL Low 3.80 - 5.2 0 10*6/uL [facility] WBC (Bld) [#/Vol] 4.2 10*3/uL 3.6 - 10.7 10*3/uL [facility] CBC WITH AUTO DIFFERENTIALon 04-13-2024 Basophils (Bld) [#/Vol] 0.0 10*3/uL Normal 0.0-0.2 [facility] Comment on above: Performed By: #### L [id number] ####Material Requisitioner: VELMA VALADEZ ([id number])[facility] ([facility])[address] [place] [address] Basophils/100 WBC (Bld) 0.7 % Normal 0.0-2.0 [facility] Comment on above: Performed By: #### L [id number] ####Material Requisitioner: VELMA VALADEZ ([id number])[facility] Eosinophils (Bld) [#/Vol] 0.1 10*3/uL Normal 0.0-0.5 [facility] Comment on above: Performed By: #### L [id number] ####Material Requisitioner: VELMA VALADEZ ([id number])[facility])[address] [place] [address] Eosinophils/100 WBC (Bld) 2.6 % Normal 0.0-6.0 [facility] Comment on above: Performed By: #### L [id number] ####Material Requisitioner: VELMA VALADEZ ([id number])[address] Erythrocyte distribution width (RBC) [Ratio] 14.5 % Normal 11.5-15.0 [facility] Comment on above: Performed By: #### L [id number] ####Material Requisitioner: VELMA VALADEZ ([id number])[facility])[address] [place] [address] Hematocrit (Bld) [Volume fraction] 26.3 % Low 35.0-47.0 [facility] Comment on above: Performed By: #### L [id number] ####Material Requisitioner: VELMA VALADEZ ([id number])[address] Hemoglobin (Bld) [Mass/Vol] 8.6 g/dL Low 11.7-16.0 [facility] Comment on above: Performed By: #### L [id number] ####Material Requisitioner: VELMA VALADEZ ([id number])[facility])[address] [place] [address] IMMATURE GRANS % 0.2 % Normal 0.0-2.0 [facility] Comment on above: Performed By: #### L [id number] ####Material Requisitioner: VELMA VALADEZ ([id number])[address] IMMATURE GRANS ABSOLUTE 0.0 10*3/uL Normal <0.1 [facility] Comment on above: Performed By: #### L [id number] ####Material Requisitioner: VELMA VALADEZ ([id number])[facility])[address] [place] [address] Lymphocytes (Bld) [#/Vol] 1.4 10*3/uL Normal 1.0-4.3 [facility] Comment on above: Performed By: #### L [id number] ####Material Requisitioner: VELMA VALADEZ ([id number])[facility])[address] [place] [address] Lymphocytes/100 WBC (Bld) 33.5 % Normal 15.0-45.0 [facility] Comment on above: Performed By: #### L [id number] ####Material Requisitioner: VELMA VALADEZ ([id number])[facility])[address] [place] [address] MCH (RBC) [Entitic mass] 29.8 pg Normal 26.0-34.0 [facility] Comment on above: Performed By: #### L [id number] ####Material Requisitioner: VELMA VALADEZ ([id number])[facility])[address] [place] [address] MCHC 32.7 % Normal 30.5-36.0 [facility] Comment on above: Performed By: #### L [id number] ####Material Requisitioner: VELMA VALADEZ ([id number])[facility])[address] [place] [address] MCV (RBC) [Entitic vol] 91.0 fL Normal 77.0-99.0 S [facility] Comment on above: Performed By: #### L [id number] ####Material Requisitioner: VELMA VALADEZ ([id number])[facility])[address] [place] [address] Monocytes (Bld) [#/Vol] 0.5 10*3/uL Normal 0.0-0.9 [facility] Comment on above: Performed By: #### L [id number] ####Material Requisitioner: VELMA VALADEZ ([id number])[facility])[address] [place] [address] Monocytes/100 WBC (Bld) 11.3 % Normal 5.0-13.0 [facility] Comment on above: Performed By: #### L [id number] ####Material Requisitioner: VELMA VALADEZ ([id number])[facility] ([facility])[address] [place] [address] NEUTROPHILS ABSOLUTE 2.2 10*3/uL Normal 1.8-7.5 [facility] Comment on above: Performed By: #### L [id number] ####Material Requisitioner: VELMA VALADEZ ([id number])[facility] ([facility])[address] [place] [address] Neutrophils/100 WBC (Bld) 51.7 % Normal 38.0-82.0 [facility] Comment on above: Performed By: #### L [id number] ####Material Requisitioner: VELMA VALADEZ ([id number])[facility] ([facility])[address] [place] [address] NRBC 0.0 /100 WBCs Normal 0.0-2.0 [facility] Comment on above: Performed By: #### L [id number] ####Material Requisitioner: VELMA VALADEZ ([id number])[facility] ([facility])[address] [place] [address] Platelet mean volume (Bld) [Entitic vol] 9.4 fL Normal 9.0-12.7 [facility] Comment on above: Performed By: #### L [id number] ####Material Requisitioner: VELMA VALADEZ ([id number])[facility] ([facility])[address] [place] [address] [place] Platelets (Bld) [#/Vol] 317 10*3/uL Normal 140-440 [facility] Comment on above: Performed By: #### L [id number] ####Material Requisitioner: VELMA VALADEZ ([id number])[facility] ([facility])[address] [place] [address] RBC (Bld) [#/Vol] 2.89 10*6/uL Low 3.80-5.20 [facility] Comment on above: Performed By: #### L [id number] ####Material Requisitioner: VELMA VALADEZ ([id number])[facility])[address] [place] [address] WBC (Bld) [#/Vol] 4.2 10*3/uL Normal 3.6-10.7 [facility] Comment on above: Performed By: #### L [id number] ####Material Requisitioner: VELMA VALADEZ ([id number])[address] IDNon 04-13-2024 IDN Normal [facility] Laboratory - Coagulationon 0 04-13-2024 PT Coag (Bld) [Time] 24.2 s High 9.0 - 1 2.0 s [facility] Nursing Noteon 04-13-2024 Nursing Note AVS explained. Discharged patient on stable condition. Normal [facility] Nursing Note Instructed patient o n warfarin dosing, she will take 7.5mg tomorrow, and 5mg Tuesday, and then we will check INR with home care on Tuesday as instructed. Normal [facility] PROTHROMBIN TIMEon INR Coag (PPP) [Relative time] 2.3 {INR} High 0.9-1.1 [facility] Comment on above: Result Comment: Timothy [...] Myocardial Infarction Performed By: #### L [id number], [id number] ####Material Requisitioner: VELMA VALADEZ ([id number])[facility])[address] [place] [address] PT Coag (PPP) [Time] 24.2 s High 9.0-12.0 [facility] Comment on above: Performed By: #### L [id number], [id number] ####Material Requisitioner: VELMA VALADEZ ([id number])[facility] ([facility])[address] [place] [address] PT Coag (Bld) [Time]on 04-13 INR Coag (PPP) [Relative time] 2.3 {INR} High 0.9 - 1.1 [facility] Comment on above: Recommended Anticoag ulant Therapy: [...] Interpretation and review of laboratory results Abnormal [facility] Progress Noteon 04-13-2024 Progress Note Normal [facility] Progress Note Normal [facility] Progress Note Normal [facility] aPTT Coag (Bld) [Time]Ordere d By: Melany Tejeda on 04-13-2024 aPTT Coag (PPP) [Time] 132.2 s Critically high 20 .0 - 30.5 s [facility] Interpretation and review of laboratory results Abnormal [facility] NOTE: The therapeuti c time for Heparin anticoagulation, based on Xa activity inhibition, is an APTT of 46-80 seconds. [facility] BASIC METABOLIC PANELon 03-19 Anion gap [Moles/Vol] 3 mmol/L Normal 3-13 [facility] Comment on above: Performed By: #### L AB15 ####Material Requisitioner: VELMA VALADEZ ([id number])[facility] ([facility])[address] [place] [address] Calcium [Mass/Vol] 9.3 mg/dL Normal 8.4-10.4 [facility] Comment on above: Performed By: #### L AB15 ####Material Requisitioner: VELMA VALADEZ ([id number])[facility] ([facility])[address] [place] [address] Chloride [Moles/Vol] 108 mmol/L High 98-107 [facility] Comment on above: Performed By: #### L AB15 ####Material Requisitioner: VELMA VALADEZ ([id number])[facility] ([facility])[address] [place] [address] CO2 [Moles/Vol] 24 mmol/L Normal 22-30 [facility] Comment on above: Performed By: #### L AB15 ####Material Requisitioner: VELMA VALADEZ ([id number])[facility])[address] [place] [address] Creatinine [Mass/Vol] 0.99 mg/dL Normal 0.52-1.04 [facility] Comment on above: Performed By: #### L AB15 ####Material Requisitioner: VELMA VALADEZ ([id number])[facility] ([facility])[address] [place] [address] GLOMERULAR FILTRATION RATE ML/MIN/1.73 SQ M.PREDICTED 56.3 mL/min/1.73m*2 Low >60.0 [facility] Comment on above: Result Comment: Calc ulation based on the Chronic Kidney Disease Epidemiology Collaboration (CKD-EPI) equation refit without adjustment for race Performed By: #### L AB15 ####Material Requisitioner: VELMA VALADEZ ([id number])[facility] ([facility])[address] [place] [address] Glucose [Mass/Vol] 101 mg/dL High 70-100 [facility] Comment on above: Performed By: #### L AB15 ####Material Requisitioner: VELMA VALADEZ ([id number])[facility])[address] [place] [address] Potassium [Moles/Vol] 3.9 mmol/L Normal 3.5-5.1 [facility] Comment on above: Performed By: #### L AB15 ####Material Requisitioner: VEMLA VALADEZ ([id number])[facility] ([facility])[address] [place] [address] Sodium [Moles/Vol] 135 mmol/L Normal 135-145 [facility] Comment on above: Performed By: #### L AB15 ####Material Requisitioner: VELMA VALADEZ ([id number])[facility] ([facility])[address] [place] [address] Urea nitrogen [Mass/Vol] 16 mg/dL Normal 7-17 [facility] Comment on above: Performed By: #### L AB15 ####Material Requisitioner: VELMA VALADEZ ([id number])[facility] ([facility])[address] [place] [address] Basic metabolic 1998 panelon 04-12-2024 Anion gap [Moles/Vol] 3 mmol/L 3 - 13 mmol/L [facility] Calcium [Mass/Vol] 9.3 mg/dL 8.4 - 10. 4 mg/dL [facility] Chloride [Moles/Vol] 108 mmol/L High 98 - 10 7 mmol/L [facility] CO2 [Moles/Vol] 24 mmol/L 22 - 30 mmol/L [facility] Creatinine [Mass/Vol] 0.99 mg/dL 0.52 - 1.04 mg/dL [facility] GFR/1.73 sq M.predicted (S/P/Bld) [Vol rate/Area] 56.3 mL/min Low - PINF [facility] Comment on above: Calculation based on the Chronic Kidney Disease Epidemiology Collaboration (CKD-EPI) equation refit without adjustment for race Glucose [Mass/Vol] 101 mg/dL High 70 - 100 mg/dL [facility] Interpretation and review of laboratory results Abnormal [facility] Potassium [Moles/Vol] 3.9 mmol/L 3.5 - 5.1 mmol/L [facility] Sodium [Moles/Vol] 135 mmol/L 135 - 145 mmol/L [facility] Urea nitrogen [Mass/Vol] 16 mg/dL 7 - 17 mg/dL [facility] CARECOORDon 04-12-2024 CARECOORD Normal [facility] CBC W Auto Differential pane l (Bld)on 04-12-2024 Basophils (Bld) [#/Vol] 0.0 10*3/uL 0.0 - 0.2 10*3/uL [facility] Basophils/100 WBC (Bld) 0.5 % 0.0 - 2.0 % [facility] Eosinophils (Bld) [#/Vol] 0.1 10*3/uL 0.0 - 0.5 10*3/uL [facility] Eosinophils/100 WBC (Bld) 2.4 % 0.0 - 6.0 % [facility] Erythrocyte distribution width (RBC) [Ratio] 14.8 % 11.5 - 15.0 % [facility] Hematocrit (Bld) [Volume fraction] 28.3 % Low 35.0 - 47.0 % [facility] Hemoglobin (Bld) [Mass/Vol] 9.3 g/dL Low 11.7 - 16.0 g/dL [facility] Immature granulocytes (Bld) [#/Vol] 0.0 10*3/uL NINF - 0.1 10*3/uL [facility] Immature granulocytes/100 WBC (Bld) 0.2 % 0.0 - 2.0 % [facility] Interpretation and review of laboratory results Abnormal [facility] Lymphocytes (Bld) [#/Vol] 1.4 10*3/uL 1.0 - 4.3 10*3/uL [facility] Lymphocytes/100 WBC (Bld) 33.0 % 15.0 - 45.0 % [facility] MCH (RBC) [Entitic mass] 30.4 pg 26.0 - 34.0 pg [facility] MCHC (RBC) [Mass/Vol] 32.9 % 30.5 - 36.0 % [facility] MCV (RBC) [Entitic vol] 92.5 fL 77.0 - 99.0 fL [facility] Monocytes (Bld) [#/Vol] 0.5 10*3/uL 0.0 - 0.9 10*3/uL [facility] Monocytes/100 WBC (Bld) 11.9 % 5.0 - 13.0 % [facility] Neutrophils (Bld) [#/Vol] 2.1 10*3/uL 1.8 - 7.5 10*3/uL [facility] Neutrophils/100 WBC (Bld) 52.0 % 38.0 - 82.0 % [facility] Nucleated RBC/100 WBC (Bld) [Ratio] 0.0 % [facility] Platelet mean volume (Bld) [Entitic vol] 9.5 fL 9.0 - 12.7 fL [facility] Platelets (Bld) [#/Vol] 307 10*3/uL 140 - 440 10*3/uL [facility] RBC (Bld) [#/Vol] 3.06 10*6/uL Low 3.80 - 5.2 0 10*6/uL [facility] WBC (Bld) [#/Vol] 4.1 10*3/uL 3.6 - 10.7 10*3/uL [facility] CBC WITH AUTO DIFFERENTIALon 04-12-2024 Basophils (Bld) [#/Vol] 0.0 10*3/uL Normal 0.0-0.2 [facility] Comment on above: Performed By: #### L [id number] ####Material Requisitioner: VELMA VALADEZ ([id number])[facility])[address] [place] [address] Basophils/100 WBC (Bld) 0.5 % Normal 0.0-2.0 [facility] Comment on above: Performed By: #### L [id number] ####Material Requisitioner: VELMA VALADEZ ([id number])[facility])[address] [place] [address] Eosinophils (Bld) [#/Vol] 0.1 10*3/uL Normal 0.0-0.5 [facility] Comment on above: Performed By: #### L [id number] ####Material Requisitioner: VELMA VALADEZ ([id number])[facility] ([facility])[address] [place] [address] [place] Eosinophils/100 WBC (Bld) 2.4 % Normal 0.0-6.0 [facility] Comment on above: Performed By: #### L [id number] ####Material Requisitioner: VELMA VALADEZ ([id number])[facility])[address] [place] [address] Erythrocyte distribution width (RBC) [Ratio] 14.8 % Normal 11.5-15.0 [facility] Comment on above: Performed By: #### L [id number] ####Material Requisitioner: VELMA VALADEZ ([id number])[address] Hematocrit (Bld) [Volume fraction] 28.3 % Low 35.0-47.0 [facility] Comment on above: Performed By: #### L [id number] ####Material Requisitioner: VELMA VALADEZ ([id number])[facility])[address] [place] [address] Hemoglobin (Bld) [Mass/Vol] 9.3 g/dL Low 11.7-16.0 [facility] Comment on above: Performed By: #### L [id number] ####Material Requisitioner: VELMA VALADEZ ([id number])[facility])[address] [place] [address] IMMATURE GRANS % 0.2 % Normal 0.0-2.0 [facility] Comment on above: Performed By: #### L [id number] ####Material Requisitioner: VELMA VALADEZ ([id number])[address] IMMATURE GRANS ABSOLUTE 0.0 10*3/uL Normal <0.1 [facility] Comment on above: Performed By: #### L [id number] ####Material Requisitioner: VELMA VALADEZ ([id number])[facility])[address] [place] [address] Lymphocytes (Bld) [#/Vol] 1.4 10*3/uL Normal 1.0-4.3 [facility] Comment on above: Performed By: #### L [id number] ####Material Requisitioner: VELMA VALADEZ ([id number])[address] Lymphocytes/100 WBC (Bld) 33.0 % Normal 15.0-45.0 [facility] Comment on above: Performed By: #### L [id number] ####Material Requisitioner: VELMA [id number])[facility] ([facility])[address] [place] [address] MCH (RBC) [Entitic mass] 30.4 pg Normal 26.0-34.0 [facility] Comment on above: Performed By: #### L [id number] ####Material Requisitioner: VELMA VALADEZ ([id number])[facility])[address] [place] [address] MCHC 32.9 % Normal 30.5-36.0 [facility] Comment on above: Performed By: #### L [id number] ####Material Requisitioner: VELMA VALADEZ ([id number])[facility])[address] [place] [address] MCV (RBC) [Entitic vol] 92.5 fL Normal 77.0-99.0 S [facility] Comment on above: Performed By: #### L [id number] ####Material Requisitioner: VELMA VALADEZ ([id number])[facility] ([facility])[address] [place] [address] Monocytes (Bld) [#/Vol] 0.5 10*3/uL Normal 0.0-0.9 [facility] Comment on above: Performed By: #### L [id number] ####Material Requisitioner: VELMA VALADEZ ([id number])[facility])[address] [place] [address] Monocytes/100 WBC (Bld) 11.9 % Normal 5.0-13.0 S [facility] Comment on above: Performed By: #### L [id number] ####Material Requisitioner: VELMA VALADEZ ([id number])[facility])[address] [place] [address] NEUTROPHILS ABSOLUTE 2.1 10*3/uL Normal 1.8-7.5 [facility] Comment on above: Performed By: #### L [id number] ####Material Requisitioner: VELMA VALADEZ ([id number])[facility])[address] [place] [address] Neutrophils/100 WBC (Bld) 52.0 % Normal 38.0-82.0 [facility] Comment on above: Performed By: #### L [id number] ####Material Requisitioner: VELMA VALADEZ ([id number])[facility] ([facility])[address] [place] [address] NRBC 0.0 /100 WBCs Normal 0.0-2.0 [facility] Comment on above: Performed By: #### L [id number] ####Material Requisitioner: VELMA VALADEZ ([id number])[facility] ([facility])[address] [place] [address] Platelet mean volume (Bld) [Entitic vol] 9.5 fL Normal 9.0-12.7 [facility] Comment on above: Performed By: #### L [id number] ####Material Requisitioner: VELMA VALADEZ ([id number])[facility] ([facility])[address] [place] [address] Platelets (Bld) [#/Vol] 307 10*3/uL Normal 140-440 [facility] Comment on above: Performed By: #### L [id number] ####Material Requisitioner: VELMA VALADEZ ([id number])[facility] ([facility])[address] [place] [address] RBC (Bld) [#/Vol] 3.06 10*6/uL Low 3.80-5.20 [facility] Comment on above: Performed By: #### L [id number] ####Material Requisitioner: VELMA VALADEZ ([id number])[facility] ([facility])[address] [place] [address] WBC (Bld) [#/Vol] 4.1 10*3/uL Normal 3.6-10.7 [facility] Comment on above: Performed By: #### L [id number] ####Material Requisitioner: VELMA VALADEZ ([id number])[facility] ([facility])[address] [place] [address] [place] IDNon 04-12-2024 IDN Normal [facility] IDN Normal [facility] Laboratory - Coagulationon 0 04-12-2024 PT Coag (Bld) [Time] 20.3 s High 9.0 - 1 2.0 s [facility] PROTHROMBIN TIMEon INR Coag (PPP) [Relative time] 1.9 {INR} High 0.9-1.1 [facility] Comment on above: Result Comment: Timothy [...] prevent Myocardial Infarction Performed By: #### Weston [id number] ####Material Requisitioner: VELMA VALADEZ ([id number])[facility])[address] [place] [address] PT Coag (PPP) [Time] 20.3 s High 9.0-12.0 [facility] Comment on above: Performed By: #### Weston AB320 ####Material Requisitioner: VELMA VALADEZ ([id number])[address] PT Coag (Bld) [Time]on 04-12 INR Coag (PPP) [Relative time] 1.9 {INR} High 0.9 - 1.1 [facility] Comment on above: Recommended Anticoag ulant Therapy: [...] Interpretation and review of laboratory results Abnormal [facility] Progress Noteon 04-12-2024 Progress Note Normal [facility] Progress Note Normal [facility] APTTon 04-11-2024 aPTT Coag (Bld) [Time] 62.7 s High 20.0-30.5 [facility] Comment on above: Result Comment: BUBBA Garcia COMMENTS:NOTE: The therapeutic time for Heparin anticoagulation, based on Xa activity inhibition, is an APTT of 46-80 seconds. Performed By: #### L [id number] ####Material Requisitioner: VELMA VALADEZ ([id number])[facility] ([facility])[address] [place] [address] aPTT Coag (Bld) [Time] 69.0 s High 20.0-30.5 [facility] Comment on above: Result Comment: BUBBA Garcia COMMENTS:NOTE: The therapeutic time for Heparin anticoagulation, based on Xa activity inhibition, is an APTT of 46-80 seconds. Performed By: #### L AB320, [id number] ####Material Requisitioner: VELMA VALADEZ ([id number])[facility] ([facility])[address] [place] [address] BASIC METABOLIC PANELon 09- Anion gap [Moles/Vol] 4 mmol/L Normal 3-13 [facility] Comment on above: Performed By: #### L AB15 ####Material Requisitioner: VELMA VALADEZ ([id number])[facility] ([facility])[address] [place] [address] Calcium [Mass/Vol] 8.8 mg/dL Normal 8.4-10.4 [facility] Comment on above: Performed By: #### L AB15 ####Material Requisitioner: VELMA VALADEZ ([id number])[facility] [place] [address] [place] Chloride [Moles/Vol] 108 mmol/L High 98-107 [facility] Comment on above: Performed By: #### L AB15 ####Material Requisitioner: VELMA VALADEZ ([id number])[facility] ([facility])[address] [place] [address] CO2 [Moles/Vol] 22 mmol/L Normal 22-30 [facility] Comment on above: Performed By: #### L AB15 ####Material Requisitioner: VELMA VALADEZ ([id number])[facility])[address] [place] [address] Creatinine [Mass/Vol] 1.01 mg/dL Normal 0.52-1.04 [facility] Comment on above: Performed By: #### L AB15 ####Material Requisitioner: VELMA VALADEZ ([id number])[facility])[address] [place] [address] GLOMERULAR FILTRATION RATE ML/MIN/1.73 SQ M.PREDICTED 55.0 mL/min/1.73m*2 Low >60.0 [facility] Comment on above: Result Comment: Calc ulation based on the Chronic Kidney Disease Epidemiology Collaboration (CKD-EPI) equation refit without adjustment for race Performed By: #### L AB15 ####Material Requisitioner: VELMA VALADEZ ([id number])[facility])[address] [place] [address] Glucose [Mass/Vol] 112 mg/dL High 70-100 [facility] Comment on above: Performed By: #### L AB15 ####Material Requisitioner: VELMA VALADEZ ([id number])[facility])[address] [place] [address] Potassium [Moles/Vol] 4.0 mmol/L Normal 3.5-5.1 [facility] Comment on above: Performed By: #### L AB15 ####Material Requisitioner: VELMA VALADEZ ([id number])[facility])[address] [place] [address] [place] Sodium [Moles/Vol] 134 mmol/L Low 135-145 [facility] Comment on above: Performed By: #### L AB15 ####Material Requisitioner: VELMA VALADEZ ([id number])[facility])[address] [place] [address] Urea nitrogen [Mass/Vol] 16 mg/dL Normal 7-17 [facility] Comment on above: Performed By: #### L AB15 ####Material Requisitioner: VELMA VALADEZ ([id number])[facility] ([address] Basic metabolic 1998 panelon 04-11-2024 Anion gap [Moles/Vol] 4 mmol/L 3 - 13 mmol/L [facility] Calcium [Mass/Vol] 8.8 mg/dL 8.4 - 10. 4 mg/dL [facility] Chloride [Moles/Vol] 108 mmol/L High 98 - 10 7 mmol/L [facility] CO2 [Moles/Vol] 22 mmol/L 22 - 30 mmol/L [facility] Creatinine [Mass/Vol] 1.01 mg/dL 0.52 - 1.04 mg/dL [facility] GFR/1.73 sq M.predicted (S/P/Bld) [Vol rate/Area] 55.0 mL/min Low - PINF [facility] Comment on above: Calculation based on the Chronic Kidney Disease Epidemiology Collaboration (CKD-EPI) equation refit without adjustment for race Glucose [Mass/Vol] 112 mg/dL High 70 - 100 mg/dL [facility] Interpretation and review of laboratory results Abnormal [facility] Potassium [Moles/Vol] 4.0 mmol/L 3.5 - 5.1 mmol/L [facility] Sodium [Moles/Vol] 134 mmol/L Low 135 - 145 mmol/L [facility] Urea nitrogen [Mass/Vol] 16 mg/dL 7 - 17 mg/dL [facility] CARECOORDon 04-11-2024 CARECOMCCLURE Normal [facility] CBC W Auto Differential pane l (Bld)on 04-11-2024 Basophils (Bld) [#/Vol] 0.0 10*3/uL 0.0 - 0.2 10*3/uL [facility] Basophils/100 WBC (Bld) 0.9 % 0.0 - 2.0 % [facility] Eosinophils (Bld) [#/Vol] 0.1 10*3/uL 0.0 - 0.5 10*3/uL [facility] Eosinophils/100 WBC (Bld) 2.0 % 0.0 - 6.0 % [facility] Erythrocyte distribution width (RBC) [Ratio] 14.8 % 11.5 - 15.0 % [facility] Hematocrit (Bld) [Volume fraction] 24.6 % Low 35.0 - 47.0 % [facility] Hemoglobin (Bld) [Mass/Vol] 8.3 g/dL Low 11.7 - 16.0 g/dL [facility] Immature granulocytes (Bld) [#/Vol] 0.0 10*3/uL NINF - 0.1 10*3/uL [facility] Immature granulocytes/100 WBC (Bld) 0.2 % 0.0 - 2.0 % [facility] Interpretation and review of laboratory results Abnormal [facility] Lymphocytes (Bld) [#/Vol] 1.4 10*3/uL 1.0 - 4.3 10*3/uL [facility] Lymphocytes/100 WBC (Bld) 31.9 % 15.0 - 45.0 % [facility] MCH (RBC) [Entitic mass] 30.5 pg 26.0 - 34.0 pg [facility] MCHC (RBC) [Mass/Vol] 33.7 % 30.5 - 36.0 % [facility] MCV (RBC) [Entitic vol] 90.4 fL 77.0 - 99.0 fL [facility] Monocytes (Bld) [#/Vol] 0.5 10*3/uL 0.0 - 0.9 10*3/uL [facility] Monocytes/100 WBC (Bld) 11.2 % 5.0 - 13.0 % [facility] Neutrophils (Bld) [#/Vol] 2.4 10*3/uL 1.8 - 7.5 10*3/uL [facility] Neutrophils/100 WBC (Bld) 53.8 % 38.0 - 82.0 % [facility] Nucleated RBC/100 WBC (Bld) [Ratio] 0.0 % [facility] Stremor Platelet mean volume (Bld) [Entitic vol] 10.0 fL 9.0 - 12.7 fL [facility] Platelets (Bld) [#/Vol] 244 10*3/uL 140 - 440 10*3/uL [facility] RBC (Bld) [#/Vol] 2.72 10*6/uL Low 3.80 - 5.2 0 10*6/uL [facility] WBC (Bld) [#/Vol] 4.5 10*3/uL 3.6 - 10.7 10*3/uL [facility] CBC WITH AUTO DIFFERENTIALon 04-11-2024 Basophils (Bld) [#/Vol] 0.0 10*3/uL Normal 0.0-0.2 [facility] Comment on above: Performed By: #### L [id number] ####Material Requisitioner: VELMA VALADEZ ([id number])[facility] ([facility])[address] [place] [address] Basophils/100 WBC (Bld) 0.9 % Normal 0.0-2.0 [facility] Comment on above: Performed By: #### L [id number] ####Material Requisitioner: VELMA VALADEZ ([id number])[facility])[address] [place] [address] Eosinophils (Bld) [#/Vol] 0.1 10*3/uL Normal 0.0-0.5 [facility] Comment on above: Performed By: #### L [id number] ####Material Requisitioner: VELMA VALADEZ ([id number])[facility] ([facility])[address] [place] [address] Eosinophils/100 WBC (Bld) 2.0 % Normal 0.0-6.0 [facility] Comment on above: Performed By: #### L [id number] ####Material Requisitioner: VELMA VALADEZ ([id number])[facility])[address] [place] [address] Erythrocyte distribution width (RBC) [Ratio] 14.8 % Normal 11.5-15.0 [facility] Comment on above: Performed By: #### L [id number] ####Material Requisitioner: VELMA VALADEZ ([phone])[facility])[address] [place] [address] Hematocrit (Bld) [Volume fraction] 24.6 % Low 35.0-47.0 [facility] Comment on above: Performed By: #### L [id number] ####Material Requisitioner: VELMA VALADEZ ([id number])[facility])[address] [place] [address] [place] Hemoglobin (Bld) [Mass/Vol] 8.3 g/dL Low 11.7-16.0 [facility] Comment on above: Performed By: #### L [id number] ####Material Requisitioner: VELMA VALADEZ ([id number])[facility])[address] [place] [address] IMMATURE GRANS % 0.2 % Normal 0.0-2.0 [facility] Comment on above: Performed By: #### L [id number] ####Material Requisitioner: VELMA VALADEZ ([id number])[facility])[address] [place] [address] IMMATURE GRANS ABSOLUTE 0.0 10*3/uL Normal <0.1 [facility] Comment on above: Performed By: #### L [id number] ####Material Requisitioner: VELMA VALADEZ ([id number])[facility])[address] [place] [address] Lymphocytes (Bld) [#/Vol] 1.4 10*3/uL Normal 1.0-4.3 [facility] Comment on above: Performed By: #### L [id number] ####Material Requisitioner: VELMA VALADEZ ([id number])[facility])[address] [place] [address] Lymphocytes/100 WBC (Bld) 31.9 % Normal 15.0-45.0 [facility] Comment on above: Performed By: #### L [id number] ####Material Requisitioner: VELMA VALADEZ ([phone])[facility])[address] [place] [address] MCH (RBC) [Entitic mass] 30.5 pg Normal 26.0-34.0 [facility] Comment on above: Performed By: #### L [id number] ####Material Requisitioner: VELMA VALADEZ ([id number])[facility])[address] [place] [address] MCHC 33.7 % Normal 30.5-36.0 [facility] Comment on above: Performed By: #### L [id number] ####Material Requisitioner: VELMA VALADEZ ([id number])[facility] ([facility])[address] [place] [address] MCV (RBC) [Entitic vol] 90.4 fL Normal 77.0-99.0 [facility] Comment on above: Performed By: #### L [id number] ####Material Requisitioner: VELMA VALADEZ ([id number])[facility] ([facility])[address] [place] [address] Monocytes (Bld) [#/Vol] 0.5 10*3/uL Normal 0.0-0.9 [facility] Comment on above: Performed By: #### L [id number] ####Material Requisitioner: VELMA VALADEZ ([id number])[facility] ([facility])[address] [place] [address] Monocytes/100 WBC (Bld) 11.2 % Normal 5.0-13.0 [facility] Comment on above: Performed By: #### L [id number] ####Material Requisitioner: VELMA VALADEZ ([id number])[facility] ([facility])[address] [place] [address] NEUTROPHILS ABSOLUTE 2.4 10*3/uL Normal 1.8-7.5 [facility] Comment on above: Performed By: #### L [id number] ####Material Requisitioner: VELMA VALADEZ ([id number])[facility] ([facility])[address] [place] [address] Neutrophils/100 WBC (Bld) 53.8 % Normal 38.0-82.0 [facility] Comment on above: Performed By: #### L [id number] ####Material Requisitioner: VELMA VALADEZ ([id number])[facility] ([facility])[address] [place] [address] NRBC 0.0 /100 WBCs Normal 0.0-2.0 [facility] Comment on above: Performed By: #### L [id number] ####Material Requisitioner: VELMA VALADEZ ([id number])[facility] ([facility])[address] [place] [address] Platelet mean volume (Bld) [Entitic vol] 10.0 fL Normal 9.0-12.7 [facility] Comment on above: Performed By: #### L [id number] ####Material Requisitioner: VELMA VALADEZ ([id number])[facility])[address] [place] [address] Platelets (Bld) [#/Vol] 244 10*3/uL Normal 140-440 [facility] Comment on above: Performed By: #### L [id number] ####Material Requisitioner: VELMA VALADEZ ([id number])[facility] ([facility])[address] [place] [address] RBC (Bld) [#/Vol] 2.72 10*6/uL Low 3.80-5.20 [facility] Comment on above: Performed By: #### L [id number] ####Material Requisitioner: VELMA VALADEZ ([id number])[facility] ([facility])[address] [place] [address] WBC (Bld) [#/Vol] 4.5 10*3/uL Normal 3.6-10.7 [facility] Comment on above: Performed By: #### L [id number] ####Material Requisitioner: VELMA VALADEZ ([id number])[facility])[address] [place] [address] IDNon 04-11-2024 IDN Normal [facility] IDN Normal [facility] Laboratory - Coagulationon 0 04-11-2024 PT Coag (Bld) [Time] 20.9 s High 9.0 - 1 2.0 s [facility] No Panel Informationon 04-11 Interpretation and review of laboratory results Abnormal [facility] PROTHROMBIN TIMEon INR Coag (PPP) [Relative time] 1.9 {INR} High 0.9-1.1 [facility] Comment on above: Result Comment: Timothy [...] Myocardial Infarction Performed By: #### [place]on [id number], [id number] ####Material Requisitioner: VELMA VALADEZ ([id number])[facility])[address] [place] [address] PT Coag (PPP) [Time] 20.9 s High 9.0-12.0 [facility] Comment on above: Performed By: #### Weston [id number], [id number] ####Material Requisitioner: VELMA VALADEZ ([id number])[facility] ([facility])[address] [place] [address] PT Coag (Bld) [Time]on 04-11 INR Coag (PPP) [Relative time] 1.9 {INR} High 0.9 - 1.1 [facility] Comment on above: Recommended Anticoag ulant Therapy: [...] Infarction Progress Noteon 04-11-2024 Progress Note [facility] Progress [facility] Note Normal [facility] Progress Note Normal [facility] aPTT Coag (Bld) [Time]on aPTT Coag (PPP) [Time] 62.7 s High 20.0 - 30.5 s [facility] Interpretation and review of laboratory results Abnormal [facility] NOTE: The therapeuti c time for Heparin anticoagulation, based on Xa activity inhibition, is an APTT of 46-80 seconds. [facility] aPTT Coag (PPP) [Time] 69.0 s High 20.0 - 30.5 s [facility] NOTE: The therapeuti c time for Heparin anticoagulation, based on Xa activity inhibition, is an APTT of 46-80 seconds. [facility] APTTon 04-10-2024 aPTT Coag (Bld) [Time] 59.0 s High 20.0-30.5 [facility] Comment on above: Result Comment: BUBBA Garcia COMMENTS:NOTE: The therapeutic time for Heparin anticoagulation, based on Xa activity inhibition, is an APTT of 46-80 seconds. Performed By: #### L [id number] ####Material Requisitioner: VELMA VALADEZ ([id number])[address] aPTT Coag (Bld) [Time] 77.3 s High 20.0-30.5 [facility] Comment on above: Result Comment: BUBBA aGrcia COMMENTS:NOTE: The therapeutic time for Heparin anticoagulation, based on Xa activity inhibition, is an APTT of 46-80 seconds. Performed By: #### L [id number], [id number] ####Material Requisitioner: VELMA VALADEZ ([id number])[address] BASIC METABOLIC PANELon 03-19 Anion gap [Moles/Vol] 3 mmol/L Normal 3-13 [facility] Comment on above: Performed By: #### L AB15 ####Material Requisitioner: VELMA VALADEZ ([id number])[facility])[address] [place] [address] Calcium [Mass/Vol] 9.0 mg/dL Normal 8.4-10.4 [facility] Comment on above: Performed By: #### L AB15 ####Material Requisitioner: VELMA VALADEZ ([id number])[facility])[address] [place] [address] Chloride [Moles/Vol] 111 mmol/L High 98-107 [facility] Comment on above: Performed By: #### L AB15 ####Material Requisitioner: VELMA VALADEZ ([id number])[facility] [place] [address] CO2 [Moles/Vol] 21 mmol/L Low 22-30 [facility] Comment on above: Performed By: #### L AB15 ####Material Requisitioner: VELMA VALADEZ ([id number])[facility] ([facility])[address] [place] [address] Creatinine [Mass/Vol] 1.00 mg/dL Normal 0.52-1.04 [facility] Comment on above: Performed By: #### L AB15 ####Material Requisitioner: VELMA VALADEZ ([id number])[facility] ([facility])[address] [place] [address] GLOMERULAR FILTRATION RATE ML/MIN/1.73 SQ M.PREDICTED 55.7 mL/min/1.73m*2 Low >60.0 [facility] Comment on above: Result Comment: Calc ulation based on the Chronic Kidney Disease Epidemiology Collaboration (CKD-EPI) equation refit without adjustment for race Performed By: #### L AB15 ####Material Requisitioner: VELMA VALADEZ ([id number])[facility] ([facility])[address] [place] [address] Glucose [Mass/Vol] 101 mg/dL High 70-100 [facility] Comment on above: Performed By: #### L AB15 ####Material Requisitioner: VELMA VALADEZ ([id number])[facility] ([facility])[address] [place] [address] Potassium [Moles/Vol] 3.8 mmol/L Normal 3.5-5.1 [facility] Comment on above: Performed By: #### L AB15 ####Material Requisitioner: VELMA VALADEZ ([id number])[facility])[address] [place] [address] Sodium [Moles/Vol] 136 mmol/L Normal 135-145 [facility] Comment on above: Performed By: #### L AB15 ####Material Requisitioner: VELMA VALADEZ ([id number])[facility])[address] [place] [address] Urea nitrogen [Mass/Vol] 15 mg/dL Normal 7-17 [facility] Comment on above: Performed By: #### L AB15 ####Material Requisitioner: VELMA VALADEZ ([id number])[facility] [place] [address] Basic metabolic 1998 panelon 04-10-2024 Anion gap [Moles/Vol] 3 mmol/L 3 - 13 mmol/L [facility] Calcium [Mass/Vol] 9.0 mg/dL 8.4 - 10. 4 mg/dL [facility] Chloride [Moles/Vol] 111 mmol/L High 98 - 10 7 mmol/L [facility] CO2 [Moles/Vol] 21 mmol/L Low 22 - 30 mmol/L [facility] Creatinine [Mass/Vol] 1.00 mg/dL 0.52 - 1.04 mg/dL [facility] GFR/1.73 sq M.predicted (S/P/Bld) [Vol rate/Area] 55.7 mL/min Low - PINF [facility] Comment on above: Calculation based on the Chronic Kidney Disease Epidemiology Collaboration (CKD-EPI) equation refit without adjustment for race Glucose [Mass/Vol] 101 mg/dL High 70 - 100 mg/dL [facility] Interpretation and review of laboratory results Abnormal [facility] Potassium [Moles/Vol] 3.8 mmol/L 3.5 - 5.1 mmol/L [facility] Sodium [Moles/Vol] 136 mmol/L 135 - 145 mmol/L [facility] Urea nitrogen [Mass/Vol] 15 mg/dL 7 - 17 mg/dL [facility] CARECOORDon 04-10-2024 CARECOORD Normal [facility] CBC W Auto Differential pane l (Bld)on 04-10-2024 Basophils (Bld) [#/Vol] 0.0 10*3/uL 0.0 - 0.2 10*3/uL [facility] Basophils/100 WBC (Bld) 0.7 % 0.0 - 2.0 % [facility] Eosinophils (Bld) [#/Vol] 0.1 10*3/uL 0.0 - 0.5 10*3/uL [facility] Eosinophils/100 WBC (Bld) 2.1 % 0.0 - 6.0 % [facility] Erythrocyte distribution width (RBC) [Ratio] 14.7 % 11.5 - 15.0 % [facility] Hematocrit (Bld) [Volume fraction] 26.0 % Low 35.0 - 47.0 % [facility] Hemoglobin (Bld) [Mass/Vol] 8.6 g/dL Low 11.7 - 16.0 g/dL [facility] Immature granulocytes (Bld) [#/Vol] 0.0 10*3/uL NINF - 0.1 10*3/uL [facility] Health Immature granulocytes/100 WBC (Bld) 0.2 % 0.0 - 2.0 % [facility] Interpretation and review of laboratory results Abnormal [facility] Lymphocytes (Bld) [#/Vol] 1.4 10*3/uL 1.0 - 4.3 10*3/uL [facility] Health Lymphocytes/100 WBC (Bld) 32.9 % 15.0 - 45.0 % [facility] MCH (RBC) [Entitic mass] 30.1 pg 26.0 - 34.0 pg [facility] MCHC (RBC) [Mass/Vol] 33.1 % 30.5 - 36.0 % [facility] MCV (RBC) [Entitic vol] 90.9 fL 77.0 - 99.0 fL [facility] Monocytes (Bld) [#/Vol] 0.6 10*3/uL 0.0 - 0.9 10*3/uL [facility] Monocytes/100 WBC (Bld) 13.6 % High 5.0 - 13.0 % [facility] Neutrophils (Bld) [#/Vol] 2.1 10*3/uL 1.8 - 7.5 10*3/uL [facility] Neutrophils/100 WBC (Bld) 50.5 % 38.0 - 82.0 % [facility] Nucleated RBC/100 WBC (Bld) [Ratio] 0.0 % [facility] Platelet mean volume (Bld) [Entitic vol] 10.0 fL 9.0 - 12.7 fL [facility] Platelets (Bld) [#/Vol] 238 10*3/uL 140 - 440 10*3/uL [facility] RBC (Bld) [#/Vol] 2.86 10*6/uL Low 3.80 - 5.2 0 10*6/uL [facility] WBC (Bld) [#/Vol] 4.3 10*3/uL 3.6 - 10.7 10*3/uL [facility] CBC WITH AUTO DIFFERENTIALon 04-10-2024 Basophils (Bld) [#/Vol] 0.0 10*3/uL Normal 0.0-0.2 [facility] Comment on above: Performed By: #### L [id number] ####Material Requisitioner: VELMA VALADEZ ([id number])[facility] ([facility])[address] [place] [address] Basophils/100 WBC (Bld) 0.7 % Normal 0.0-2.0 S [facility] Comment on above: Performed By: #### L [id number] ####Material Requisitioner: VELMA VALADEZ ([id number])[facility])[address] [place] [address] Eosinophils (Bld) [#/Vol] 0.1 10*3/uL Normal 0.0-0.5 [facility] Comment on above: Performed By: #### L [id number] ####Material Requisitioner: VELMA VALADEZ ([id number])[facility])[address] [place] [address] Eosinophils/100 WBC (Bld) 2.1 % Normal 0.0-6.0 [facility] Comment on above: Performed By: #### L [id number] ####Material Requisitioner: VELMA VALADEZ ([id number])[facility])[address] [place] [address] Erythrocyte distribution width (RBC) [Ratio] 14.7 % Normal 11.5-15.0 [facility] Comment on above: Performed By: #### L [id number] ####Material Requisitioner: VELMA VALADEZ ([id number])[facility])[address] [place] [address] Hematocrit (Bld) [Volume fraction] 26.0 % Low 35.0-47.0 [facility] Comment on above: Performed By: #### L [id number] ####Material Requisitioner: VELMA VALADEZ ([id number])[facility])[address] [place] [address] Hemoglobin (Bld) [Mass/Vol] 8.6 g/dL Low 11.7-16.0 [facility] Comment on above: Performed By: #### L [id number] ####Material Requisitioner: VELMA VALADEZ ([id number])[facility])[address] [place] [address] IMMATURE GRANS % 0.2 % Normal 0.0-2.0 [facility] Comment on above: Performed By: #### L [id number] ####Material Requisitioner: VELMA VALADEZ ([id number])[facility])[address] [place] [address] IMMATURE GRANS ABSOLUTE 0.0 10*3/uL Normal <0.1 [facility] Comment on above: Performed By: #### L [id number] ####Material Requisitioner: VELMA VALADEZ ([id number])[facility] ([facility])[address] [place] [address] Lymphocytes (Bld) [#/Vol] 1.4 10*3/uL Normal 1.0-4.3 [facility] Comment on above: Performed By: #### L [id number] ####Material Requisitioner: VELMA VALADEZ ([id number])[facility])[address] [place] [address] Lymphocytes/100 WBC (Bld) 32.9 % Normal 15.0-45.0 [facility] Comment on above: Performed By: #### L [id number] ####Material Requisitioner: VELMA VALADEZ ([id number])[facility])[address] [place] [address] MCH (RBC) [Entitic mass] 30.1 pg Normal 26.0-34.0 [facility] Comment on above: Performed By: #### L [id number] ####Material Requisitioner: VELMA VALADEZ ([id number])[facility] ([facility])[address] [place] [address] MCHC 33.1 % Normal 30.5-36.0 [facility] Comment on above: Performed By: #### L [id number] ####Material Requisitioner: VELMA VALADEZ ([id number])[facility] ([facility])[address] [place] [address] MCV (RBC) [Entitic vol] 90.9 fL Normal 77.0-99.0 [facility] Comment on above: Performed By: #### L [id number] ####Material Requisitioner: VELMA VALADEZ ([id number])[facility] ([facility])[address] [place] [address] Monocytes (Bld) [#/Vol] 0.6 10*3/uL Normal 0.0-0.9 [facility] Comment on above: Performed By: #### L [id number] ####Material Requisitioner: VELMA VALADEZ ([id number])[facility] ([facility])[address] [place] [address] Monocytes/100 WBC (Bld) 13.6 % High 5.0-13.0 [facility] Comment on above: Performed By: #### L [id number] ####Material Requisitioner: VELMA VALADEZ ([id number])[facility] ([facility])[address] [place] [address] NEUTROPHILS ABSOLUTE 2.1 10*3/uL Normal 1.8-7.5 [facility] Comment on above: Performed By: #### L [id number] ####Material Requisitioner: VELMA VALADEZ ([id number])[facility] ([facility])[address] [place] [address] Neutrophils/100 WBC (Bld) 50.5 % Normal 38.0-82.0 [facility] Comment on above: Performed By: #### L [id number] ####Material Requisitioner: VELMA VALADEZ ([id number])[facility] ([facility])[address] [place] [address] NRBC 0.0 /100 WBCs Normal 0.0-2.0 [facility] Comment on above: Performed By: #### L [id number] ####Material Requisitioner: VELMA VALADEZ ([id number])[facility])[address] [place] [address] Platelet mean volume (Bld) [Entitic vol] 10.0 fL Normal 9.0-12.7 [facility] Comment on above: Performed By: #### L [id number] ####Material Requisitioner: VELMA VALADEZ ([id number])[facility] ([facility])[address] [place] [address] Platelets (Bld) [#/Vol] 238 10*3/uL Normal 140-440 [facility] Comment on above: Performed By: #### L [id number] ####Material Requisitioner: VELMA VALADEZ ([id number])[facility])[address] [place] [address] RBC (Bld) [#/Vol] 2.86 10*6/uL Low 3.80-5.20 [facility] Comment on above: Performed By: #### L [id number] ####Material Requisitioner: VELMA VALADEZ ([id number])[facility] ([facility])[address] [place] [address] WBC (Bld) [#/Vol] 4.3 10*3/uL Normal 3.6-10.7 [facility] Comment on above: Performed By: #### L [id number] ####Material Requisitioner: VELMA VALADEZ ([id number])[facility] ([facility])[address] [place] [address] [place] IDNon 04-10-2024 IDN Normal [facility] Laboratory - Coagulationon 0 04-10-2024 PT Coag (Bld) [Time] 17.7 s High 9.0 - 1 2.0 s [facility] No Panel Informationon 04-10 Interpretation and review of laboratory results Abnormal [facility] PROTHROMBIN TIMEon INR Coag (PPP) [Relative time] 1.6 {INR} High 0.9-1.1 [facility] Comment on above: Result Comment: Timothy [...] Myocardial Infarction Performed By: #### L [id number], [id number] ####Material Requisitioner: VELMA VALADEZ ([id number])[address] PT Coag (PPP) [Time] 17.7 s High 9.0-12.0 [facility] Comment on above: Performed By: #### [place] [id number], [id number] ####Material Requisitioner: VELMA VALADEZ ([id number])[facility] ([address] PT Coag (Bld) [Time]on 04-10 INR Coag (PPP) [Relative time] 1.6 {INR} High 0.9 - 1.1 [facility] Comment on above: Recommended Anticoag ulant Therapy: [...] 04-10-2024 Progress Note Normal [facility] Progress Note Nutrition update completed. Chart reviewed. Patient to be monitored and followed by the diet plastic eye technician. FADI Farrar Normal [facility] Progress Note Normal [facility] aPTT Coag (Bld) [Time]on aPTT Coag (PPP) [Time] 59.0 s High 20.0 - 30.5 s [facility] Interpretation and review of laboratory results Abnormal [facility] NOTE: The therapeuti c time for Heparin anticoagulation, based on Xa activity inhibition, is an APTT of 46-80 seconds. [facility] aPTT Coag (PPP) [Time] 77.3 s High 20.0 - 30.5 s [facility] NOTE: The therapeuti c time for Heparin anticoagulation, based on Xa activity inhibition, is an APTT of 46-80 seconds. [facility] APTTon 04-09-2024 aPTT Coag (Bld) [Time] 58.9 s High 20.0-30.5 [facility] Comment on above: Result Comment: HARRIETE R COMMENTS:NOTE: The therapeutic time for Heparin anticoagulation, based on Xa activity inhibition, is an APTT of 46-80 seconds. Performed By: #### L [id number] ####Material Requisitioner: VELMA VALADEZ ([id number])[address] aPTT Coag (Bld) [Time] 64.6 s High 20.0-30.5 [facility] Comment on above: Result Comment: BUBBA R COMMENTS:NOTE: The therapeutic time for Heparin anticoagulation, based on Xa activity inhibition, is an APTT of 46-80 seconds. Performed By: #### L [id number] ####Material Requisitioner: VELMA VALADEZ ([id number])[address] aPTT Coag (Bld) [Time] 82.3 s High 20.0-30.5 [facility] Comment on above: Result Comment: BUBBA R COMMENTS:NOTE: The therapeutic time for Heparin anticoagulation, based on Xa activity inhibition, is an APTT of 46-80 seconds. Performed By: #### L [id number], [id number] ####Material Requisitioner: VELMA VALADEZ ([id number])[facility])[address] [place] [address] BASIC METABOLIC PANELon - Anion gap [Moles/Vol] 5 mmol/L Normal 3-13 [facility] Comment on above: Performed By: #### L AB15 ####Material Requisitioner: VELMA VALADEZ ([id number])[facility] ([facility])[address] [place] [address] Calcium [Mass/Vol] 8.9 mg/dL Normal 8.4-10.4 [facility] Comment on above: Performed By: #### L AB15 ####Material Requisitioner: VELMA VALADEZ ([id number])[facility] ([facility])[address] [place] [address] [place] Chloride [Moles/Vol] 116 mmol/L High 98-107 [facility] Comment on above: Performed By: #### L AB15 ####Material Requisitioner: VELMA VALADEZ ([id number])[facility] ([facility])[address] [place] [address] CO2 [Moles/Vol] 16 mmol/L Low 22-30 [facility] Comment on above: Performed By: #### L AB15 ####Material Requisitioner: VELMA VALADEZ ([id number])[facility] ([facility])[address] [place] [address] Creatinine [Mass/Vol] 0.93 mg/dL Normal 0.52-1.04 [facility] Comment on above: Performed By: #### L AB15 ####Material Requisitioner: VELMA VALADEZ ([id number])[facility] ([facility])[address] [place] [address] [place] GLOMERULAR FILTRATION RATE ML/MIN/1.73 SQ M.PREDICTED 60.7 mL/min/1.73m*2 Normal >60.0 [facility] Comment on above: Result Comment: Calc ulation based on the Chronic Kidney Disease Epidemiology Collaboration (CKD-EPI) equation refit without adjustment for race Performed By: #### L AB15 ####Material Requisitioner: VELMA VALADEZ ([id number])[facility] ([facility])[address] [place] [address] [place] Glucose [Mass/Vol] 119 mg/dL High 70-100 [facility] Comment on above: Performed By: #### L AB15 ####Material Requisitioner: VELMA VALADEZ ([id number])[facility] ([facility])[address] [place] [address] Potassium [Moles/Vol] 4.4 mmol/L Normal 3.5-5.1 [facility] Comment on above: Performed By: #### L AB15 ####Material Requisitioner: VELMA VALADEZ ([id number])[facility] ([facility])[address] [place] [address] Sodium [Moles/Vol] 136 mmol/L Normal 135-145 [facility] Comment on above: Performed By: #### L AB15 ####Material Requisitioner: VELMA VALADEZ ([id number])[facility] ([facility])[address] [place] [address] Urea nitrogen [Mass/Vol] 16 mg/dL Normal 7-17 [facility] Comment on above: Performed By: #### L AB15 ####Material Requisitioner: VELMA VALADEZ ([id number])[facility] ([facility])[address] [place] [address] Basic metabolic 1998 panelon 04-09-2024 Anion gap [Moles/Vol] 5 mmol/L 3 - 13 mmol/L [facility] Calcium [Mass/Vol] 8.9 mg/dL 8.4 - 10. 4 mg/dL [facility] Chloride [Moles/Vol] 116 mmol/L High 98 - 10 7 mmol/L [facility] CO2 [Moles/Vol] 16 mmol/L Low 22 - 30 mmol/L [facility] Creatinine [Mass/Vol] 0.93 mg/dL 0.52 - 1.04 mg/dL [facility] GFR/1.73 sq M.predicted (S/P/Bld) [Vol rate/Area] 60.7 mL/min - PINF [facility] Comment on above: Calculation based on the Chronic Kidney Disease Epidemiology Collaboration (CKD-EPI) equation refit without adjustment for race Glucose [Mass/Vol] 119 mg/dL High 70 - 100 mg/dL [facility] Interpretation and review of laboratory results Abnormal [facility] Potassium [Moles/Vol] 4.4 mmol/L 3.5 - 5.1 mmol/L [facility] Sodium [Moles/Vol] 136 mmol/L 135 - 145 mmol/L [facility] Urea nitrogen [Mass/Vol] 16 mg/dL 7 - 17 mg/dL [facility] CARECOORDon 04-09-2024 CARECOORD Normal [facility] CBC W Auto Differential pane l (Bld)on 04-09-2024 Basophils (Bld) [#/Vol] 0.0 10*3/uL 0.0 - 0.2 10*3/uL [facility] Basophils/100 WBC (Bld) 0.6 % 0.0 - 2.0 % [facility] Eosinophils (Bld) [#/Vol] 0.1 10*3/uL 0.0 - 0.5 10*3/uL [facility] Eosinophils/100 WBC (Bld) 0.9 % 0.0 - 6.0 % [facility] Erythrocyte distribution width (RBC) [Ratio] 14.8 % 11.5 - 15.0 % [facility] Hematocrit (Bld) [Volume fraction] 28.2 % Low 35.0 - 47.0 % [facility] Hemoglobin (Bld) [Mass/Vol] 9.0 g/dL Low 11.7 - 16.0 g/dL [facility] Immature granulocytes (Bld) [#/Vol] 0.0 10*3/uL NINF - 0.1 10*3/uL [facility] Immature granulocytes/100 WBC (Bld) 0.4 % 0.0 - 2.0 % [facility] Interpretation and review of laboratory results Abnormal [facility] Lymphocytes (Bld) [#/Vol] 2.2 10*3/uL 1.0 - 4.3 10*3/uL [facility] Lymphocytes/100 WBC (Bld) 31.2 % 15.0 - 45.0 % [facility] MCH (RBC) [Entitic mass] 29.8 pg 26.0 - 34.0 pg [facility] MCHC (RBC) [Mass/Vol] 31.9 % 30.5 - 36.0 % [facility] MCV (RBC) [Entitic vol] 93.4 fL 77.0 - 99.0 fL [facility] Monocytes (Bld) [#/Vol] 0.7 10*3/uL 0.0 - 0.9 10*3/uL [facility] Monocytes/100 WBC (Bld) 10.7 % 5.0 - 13.0 % [facility] Neutrophils (Bld) [#/Vol] 3.9 10*3/uL 1.8 - 7.5 10*3/uL [facility] Neutrophils/100 WBC (Bld) 56.2 % 38.0 - 82.0 % [facility] Nucleated RBC/100 WBC (Bld) [Ratio] 0.0 % [facility] Platelet mean volume (Bld) [Entitic vol] 10.2 fL 9.0 - 12.7 fL [facility] Platelets (Bld) [#/Vol] 235 10*3/uL 140 - 440 10*3/uL [facility] RBC (Bld) [#/Vol] 3.02 10*6/uL Low 3.80 - 5.2 0 10*6/uL [facility] WBC (Bld) [#/Vol] 6.9 10*3/uL 3.6 - 10.7 10*3/uL [facility] CBC WITH AUTO DIFFERENTIALon 04-09-2024 Basophils (Bld) [#/Vol] 0.0 10*3/uL Normal 0.0-0.2 [facility] Comment on above: Performed By: #### L [id number] ####Material Requisitioner: VELMA VALADEZ ([id number])[address] Basophils/100 WBC (Bld) 0.6 % Normal 0.0-2.0 [facility] Comment on above: Performed By: #### L [id number] ####Material Requisitioner: VELMA VALADEZ ([id number])[facility] ([facility])[address] [place] [address] [place] Eosinophils (Bld) [#/Vol] 0.1 10*3/uL Normal 0.0-0.5 [facility] Comment on above: Performed By: #### L [id number] ####Material Requisitioner: VELMA VALADEZ ([id number])[facility])[address] [place] [address] [place] Eosinophils/100 WBC (Bld) 0.9 % Normal 0.0-6.0 [facility] Comment on above: Performed By: #### L [id number] ####Material Requisitioner: VELMA VALADEZ ([id number])[address] Erythrocyte distribution width (RBC) [Ratio] 14.8 % Normal 11.5-15.0 [facility] Comment on above: Performed By: #### L [id number] ####Material Requisitioner: VELMA VALADEZ ([id number])[address] Hematocrit (Bld) [Volume fraction] 28.2 % Low 35.0-47.0 [facility] Comment on above: Performed By: #### L [id number] ####Material Requisitioner: VELMA VALADEZ ([id number])[address] Hemoglobin (Bld) [Mass/Vol] 9.0 g/dL Low 11.7-16.0 [facility] Comment on above: Performed By: #### L [id number] ####Material Requisitioner: VELMA VALADEZ ([id number])[address] IMMATURE GRANS % 0.4 % Normal 0.0-2.0 [facility] Comment on above: Performed By: #### L [id number] ####Material Requisitioner: VELMA VALADEZ ([id number])[address] IMMATURE GRANS ABSOLUTE 0.0 10*3/uL Normal <0.1 [facility] Comment on above: Performed By: #### L [id number] ####Material Requisitioner: VELMA VALADEZ ([id number])[address] Lymphocytes (Bld) [#/Vol] 2.2 10*3/uL Normal 1.0-4.3 [facility] Comment on above: Performed By: #### L [id number] ####Material Requisitioner: VELMA VALADEZ ([id number])[facility] ([facility])[address] [place] [address] Lymphocytes/100 WBC (Bld) 31.2 % Normal 15.0-45.0 [facility] Comment on above: Performed By: #### L [id number] ####Material Requisitioner: VELMA VALADEZ ([id number])[facility])[address] [place] [address] MCH (RBC) [Entitic mass] 29.8 pg Normal 26.0-34.0 [facility] Comment on above: Performed By: #### L [id number] ####Material Requisitioner: VELMA VALADEZ ([id number])[facility])[address] [place] [address] MCHC 31.9 % Normal 30.5-36.0 [facility] Comment on above: Performed By: #### L [id number] ####Material Requisitioner: VELMA VALADEZ ([id number])[facility] ([facility])[address] [place] [address] MCV (RBC) [Entitic vol] 93.4 fL Normal 77.0-99.0 [facility] Comment on above: Performed By: #### L [id number] ####Material Requisitioner: VELMA VALADEZ ([id number])[facility])[address] [place] [address] Monocytes (Bld) [#/Vol] 0.7 10*3/uL Normal 0.0-0.9 [facility] Comment on above: Performed By: #### L [id number] ####Material Requisitioner: VELMA VALADEZ ([id number])[facility])[address] [place] [address] Monocytes/100 WBC (Bld) 10.7 % Normal 5.0-13.0 [facility] Comment on above: Performed By: #### L [id number] ####Material Requisitioner: VELMA VALADEZ ([id number])[facility])[address] [place] [address] NEUTROPHILS ABSOLUTE 3.9 10*3/uL Normal 1.8-7.5 [facility] Comment on above: Performed By: #### L [id number] ####Material Requisitioner: VELMA VALADEZ ([id number])[facility] ([facility])[address] [place] [address] Neutrophils/100 WBC (Bld) 56.2 % Normal 38.0-82.0 [facility] Comment on above: Performed By: #### L [id number] ####Material Requisitioner: VELMA VALADEZ ([id number])[facility] ([facility])[address] [place] [address] NRBC 0.0 /100 WBCs Normal 0.0-2.0 [facility] Comment on above: Performed By: #### L [id number] ####Material Requisitioner: VELMA VALADEZ ([id number])[facility] ([facility])[address] [place] [address] Platelet mean volume (Bld) [Entitic vol] 10.2 fL Normal 9.0-12.7 [facility] Comment on above: Performed By: #### L [id number] ####Material Requisitioner: VELMA VALADEZ ([id number])[facility] ([facility])[address] [place] [address] Platelets (Bld) [#/Vol] 235 10*3/uL Normal 140-440 [facility] Comment on above: Performed By: #### L [id number] ####Material Requisitioner: VELMA VALADEZ ([id number])[facility] ([facility])[address] [place] [address] [place] RBC (Bld) [#/Vol] 3.02 10*6/uL Low 3.80-5.20 [facility] Comment on above: Performed By: #### L [id number] ####Material Requisitioner: VELMA VALADEZ ([id number])[facility] ([facility])[address] [place] [address] [place] WBC (Bld) [#/Vol] 6.9 10*3/uL Normal 3.6-10.7 [facility] Comment on above: Performed By: #### Weston [id number] ####Material Requisitioner: VELMA VALADEZ ([id number])[facility])[address] [place] [address] Laboratory - Coagulationon 0 04-09-2024 PT Coag (Bld) [Time] 13.8 s High 9.0 - 1 2.0 s [facility] No Panel Informationon 04-09 Interpretation and review of laboratory results Abnormal [facility] PROTHROMBIN TIMEon INR Coag (PPP) [Relative time] 1.2 {INR} High 0.9-1.1 [facility] Comment on above: Result Comment: Timothy [...] Myocardial Infarction Performed By: #### Weston [id number], [id number] ####Material Requisitioner: VELMA VALADEZ ([id number])[facility])[address] [place] [address] PT Coag (PPP) [Time] 13.8 s High 9.0-12.0 [facility] Comment on above: Performed By: #### Weston [id number], [id number] ####Material Requisitioner: VELMA VALADEZ ([id number])[facility])[address] [place] [address] PT Coag (Bld) [Time]on 04-09 INR Coag (PPP) [Relative time] 1.2 {INR} High 0.9 - 1.1 [facility] Comment on above: Recommended Anticoag ulant Therapy: [...] Infarction Progress Noteon 04-09-2024 Progress Note Normal [facility] Progress Note Normal [facility] XR CHEST 1 VIEWon 04-09-2024 XR CHEST 1 VIEW Normal [facility] XR Chest Single viewon 04-09 Mild cardiomegaly and pulmonary venous congestion with small pleural effusions. Report Dictated on Electronically Signed By: Di Leggett MD Electronically Signed Date/Time: 04/09/2024 1:42 PM EDT [facility] Patient Name: MEL CARVER RD : [...] the left shoulder. No acute osseous findings. [facility] Di Leggett M D - 04/09/2024 [...] Electronically Signed Date/Time: 04/09/2024 1:42 PM EDT [facility] Radiology Study observation (narrative) [facility] XR Chest Single viewOrdered By: Di Leggett on 04-09-2024 [facility] Work Phone: aPTT Coag (Bld) [Time]on aPTT Coag (PPP) [Time] 58.9 s High 20.0 - 30.5 s [facility] Interpretation and review of laboratory results Abnormal [facility] NOTE: The therapeuti c time for Heparin anticoagulation, based on Xa activity inhibition, is an APTT of 46-80 seconds. [facility] aPTT Coag (PPP) [Time] 64.6 s High 20.0 - 30.5 s [facility] Interpretation and review of laboratory results Abnormal [facility] NOTE: The therapeuti c time for Heparin anticoagulation, based on Xa activity inhibition, is an APTT of 46-80 seconds. [facility] aPTT Coag (PPP) [Time] 82.3 s High 20.0 - 30.5 s [facility] NOTE: The therapeuti c time for Heparin anticoagulation, based on Xa activity inhibition, is an APTT of 46-80 seconds. [facility] APTTon 04-08-2024 aPTT Coag (Bld) [Time] 51.5 s High 20.0-30.5 [facility] Comment on above: Result Comment: BUBBA Garcia COMMENTS:NOTE: The therapeutic time for Heparin anticoagulation, based on Xa activity inhibition, is an APTT of 46-80 seconds. Performed By: #### L [id number] ####Material Requisitioner: VELMA VALADEZ ([id number])[facility] ([facility] aPTT Coag (Bld) [Time] 59.8 s High 20.0-30.5 [facility] Comment on above: Result Comment: BUBBA Garcia COMMENTS:NOTE: The therapeutic time for Heparin anticoagulation, based on Xa activity inhibition, is an APTT of 46-80 seconds. Performed By: #### L [id number] ####Material Requisitioner: VELMA VALADEZ ([id number])[facility] ([facility])[address] [place] [address] aPTT Coag (Bld) [Time] 41.4 s High 20.0-30.5 [facility] Comment on above: Result Comment: BUBBA Garcia COMMENTS:NOTE: The therapeutic time for Heparin anticoagulation, based on Xa activity inhibition, is an APTT of 46-80 seconds. Performed By: #### L [id number], [id number] ####Material Requisitioner: VELMA VALADEZ ([id number])[facility] ([facility])[address] [place] [address] BASIC METABOLIC PANELon 09-2 -2023 Anion gap [Moles/Vol] 5 mmol/L Normal 3-13 [facility] Comment on above: Performed By: #### L AB15 ####Material Requisitioner: VELMA VALADEZ ([phone])[facility])[address] [place] [address] Calcium [Mass/Vol] 8.9 mg/dL Normal 8.4-10.4 [facility] Comment on above: Performed By: #### L AB15 ####Material Requisitioner: VELMA VALADEZ ([id number])[facility])[address] [place] [address] Chloride [Moles/Vol] 113 mmol/L High 98-107 [facility] Comment on above: Performed By: #### L AB15 ####Material Requisitioner: VELMA VALADEZ ([id number])[facility] ([facility])[address] [place] [address] CO2 [Moles/Vol] 17 mmol/L Low 22-30 [facility] Comment on above: Performed By: #### L AB15 ####Material Requisitioner: VELMA VALADEZ ([id number])[facility] ([facility])[address] [place] [address] Creatinine [Mass/Vol] 0.98 mg/dL Normal 0.52-1.04 [facility] Comment on above: Performed By: #### L AB15 ####Material Requisitioner: VELMA VALADEZ ([id number])[facility] ([facility])[address] [place] [address] [place] GLOMERULAR FILTRATION RATE ML/MIN/1.73 SQ M.PREDICTED 57.0 mL/min/1.73m*2 Low >60.0 [facility] Comment on above: Result Comment: Calc ulation based on the Chronic Kidney Disease Epidemiology Collaboration (CKD-EPI) equation refit without adjustment for race Performed By: #### L AB15 ####Material Requisitioner: VELMA VALADEZ ([id number])[facility] ([facility])[address] [place] [address] Glucose [Mass/Vol] 116 mg/dL High 70-100 [facility] Comment on above: Performed By: #### L AB15 ####Material Requisitioner: VELMA VALADEZ ([id number])[facility] ([facility])[address] [place] [address] Potassium [Moles/Vol] 4.5 mmol/L Normal 3.5-5.1 [facility] Comment on above: Performed By: #### L AB15 ####Material Requisitioner: VELMA VALADEZ ([id number])[facility])[address] [place] [address] Sodium [Moles/Vol] 135 mmol/L Normal 135-145 [facility] Comment on above: Performed By: #### L AB15 ####Material Requisitioner: VELMA VALADEZ ([id number])[facility])[address] [place] [address] Urea nitrogen [Mass/Vol] 18 mg/dL High 7-17 [facility] Comment on above: Performed By: #### L AB15 ####Material Requisitioner: VELMA VALADEZ ([id number])[facility])[address] [place] [address] Basic metabolic 1998 panelon 04-08-2024 Anion gap [Moles/Vol] 5 mmol/L 3 - 13 mmol/L [facility] Calcium [Mass/Vol] 8.9 mg/dL 8.4 - 10. 4 mg/dL [facility] Chloride [Moles/Vol] 113 mmol/L High 98 - 10 7 mmol/L [facility] CO2 [Moles/Vol] 17 mmol/L Low 22 - 30 mmol/L [facility] Creatinine [Mass/Vol] 0.98 mg/dL 0.52 - 1.04 mg/dL [facility] GFR/1.73 sq M.predicted (S/P/Bld) [Vol rate/Area] 57.0 mL/min Low - PINF [facility] Comment on above: Calculation based on the Chronic Kidney Disease Epidemiology Collaboration (CKD-EPI) equation refit without adjustment for race Glucose [Mass/Vol] 116 mg/dL High 70 - 100 mg/dL [facility] Interpretation and review of laboratory results Abnormal [facility] Potassium [Moles/Vol] 4.5 mmol/L 3.5 - 5.1 mmol/L [facility] Sodium [Moles/Vol] 135 mmol/L 135 - 145 mmol/L [facility] Urea nitrogen [Mass/Vol] 18 mg/dL High 7 - 17 mg/dL [facility] CBC W Auto Differential pane l (Bld)on 04-08-2024 Basophils (Bld) [#/Vol] 0.0 10*3/uL 0.0 - 0.2 10*3/uL [facility] Basophils/100 WBC (Bld) 0.5 % 0.0 - 2.0 % [facility] Eosinophils (Bld) [#/Vol] 0.1 10*3/uL 0.0 - 0.5 10*3/uL [facility] Eosinophils/100 WBC (Bld) 0.9 % 0.0 - 6.0 % [facility] Erythrocyte distribution width (RBC) [Ratio] 14.8 % 11.5 - 15.0 % [facility] Hematocrit (Bld) [Volume fraction] 27.0 % Low 35.0 - 47.0 % [facility] Hemoglobin (Bld) [Mass/Vol] 8.6 g/dL Low 11.7 - 16.0 g/dL [facility] Immature granulocytes (Bld) [#/Vol] 0.0 10*3/uL NINF - 0.1 10*3/uL [facility] Immature granulocytes/100 WBC (Bld) 0.4 % 0.0 - 2.0 % [facility] Interpretation and review of laboratory results Abnormal [facility] Lymphocytes (Bld) [#/Vol] 1.7 10*3/uL 1.0 - 4.3 10*3/uL [facility] Lymphocytes/100 WBC (Bld) 23.3 % 15.0 - 45.0 % [facility] MCH (RBC) [Entitic mass] 30.2 pg 26.0 - 34.0 pg [facility] MCHC (RBC) [Mass/Vol] 31.9 % 30.5 - 36.0 % [facility] MCV (RBC) [Entitic vol] 94.7 fL 77.0 - 99.0 fL [facility] Monocytes (Bld) [#/Vol] 0.8 10*3/uL 0.0 - 0.9 10*3/uL [facility] Monocytes/100 WBC (Bld) 10.2 % 5.0 - 13.0 % [facility] Neutrophils (Bld) [#/Vol] 4.8 10*3/uL 1.8 - 7.5 10*3/uL [facility] Neutrophils/100 WBC (Bld) 64.7 % 38.0 - 82.0 % [facility] Nucleated RBC/100 WBC (Bld) [Ratio] 0.0 % [facility] Platelet mean volume (Bld) [Entitic vol] 10.1 fL 9.0 - 12.7 fL [facility] Platelets (Bld) [#/Vol] 223 10*3/uL 140 - 440 10*3/uL [facility] RBC (Bld) [#/Vol] 2.85 10*6/uL Low 3.80 - 5.2 0 10*6/uL [facility] WBC (Bld) [#/Vol] 7.5 10*3/uL 3.6 - 10.7 10*3/uL [facility] CBC WITH AUTO DIFFERENTIALon 04-08-2024 Basophils (Bld) [#/Vol] 0.0 10*3/uL Normal 0.0-0.2 [facility] Comment on above: Performed By: #### L [id number] ####Material Requisitioner: VELMA VALADEZ ([id number])[facility])[address] [place] [address] Basophils/100 WBC (Bld) 0.5 % Normal 0.0-2.0 [facility] Comment on above: Performed By: #### L [id number] ####Material Requisitioner: VELMA VALADEZ ([id number])[facility])[address] [place] [address] Eosinophils (Bld) [#/Vol] 0.1 10*3/uL Normal 0.0-0.5 [facility] Comment on above: Performed By: #### L [id number] ####Material Requisitioner: VELMA VALADEZ ([id number])[facility])[address] [place] [address] Eosinophils/100 WBC (Bld) 0.9 % Normal 0.0-6.0 [facility] Comment on above: Performed By: #### L [id number] ####Material Requisitioner: VELMA VALADEZ ([id number])[facility])[address] [place] [address] Erythrocyte distribution width (RBC) [Ratio] 14.8 % Normal 11.5-15.0 [facility] Comment on above: Performed By: #### L [id number] ####Material Requisitioner: VELMA VALADEZ ([id number])[facility])[address] [place] [address] Hematocrit (Bld) [Volume fraction] 27.0 % Low 35.0-47.0 [facility] Comment on above: Performed By: #### L [id number] ####Material Requisitioner: VELMA VALADEZ ([id number])[address] Hemoglobin (Bld) [Mass/Vol] 8.6 g/dL Low 11.7-16.0 [facility] Comment on above: Performed By: #### L [id number] ####Material Requisitioner: VELMA VALADEZ ([id number])[facility])[address] [place] [address] IMMATURE GRANS % 0.4 % Normal 0.0-2.0 [facility] [facility] Comment on above: Performed By: #### L [id number] ####Material Requisitioner: VELMA VALADEZ ([id number])[facility])[address] [place] [address] IMMATURE GRANS ABSOLUTE 0.0 10*3/uL Normal <0.1 [facility] Comment on above: Performed By: #### L [id number] ####Material Requisitioner: VELMA VALADEZ ([id number])[facility])[address] [place] [address] Lymphocytes (Bld) [#/Vol] 1.7 10*3/uL Normal 1.0-4.3 [facility] Comment on above: Performed By: #### L [id number] ####Material Requisitioner: VELMA VALADEZ ([id number])[facility])[address] [place] [address] Lymphocytes/100 WBC (Bld) 23.3 % Normal 15.0-45.0 [facility] Comment on above: Performed By: #### L [id number] ####Material Requisitioner: VELMA VALADEZ ([id number])[facility])[address] [place] [address] MCH (RBC) [Entitic mass] 30.2 pg Normal 26.0-34.0 [facility] Comment on above: Performed By: #### L [id number] ####Material Requisitioner: VELMA VALADEZ ([id number])[facility])[address] [place] [address] MCHC 31.9 % Normal 30.5-36.0 [facility] Comment on above: Performed By: #### L [id number] ####Material Requisitioner: VELMA VALADEZ ([id number])[facility])[address] [place] [address] MCV (RBC) [Entitic vol] 94.7 fL Normal 77.0-99.0 S [facility] Comment on above: Performed By: #### L [id number] ####Material Requisitioner: VELMA VALADEZ ([id number])[facility] ([facility])[address] [place] [address] Monocytes (Bld) [#/Vol] 0.8 10*3/uL Normal 0.0-0.9 [facility] Comment on above: Performed By: #### L [id number] ####Material Requisitioner: VELMA VALADEZ ([id number])[facility] ([facility])[address] [place] [address] Monocytes/100 WBC (Bld) 10.2 % Normal 5.0-13.0 S [facility] Comment on above: Performed By: #### L [id number] ####Material Requisitioner: VELMA VALADEZ ([id number])[facility] ([facility])[address] [place] [address] NEUTROPHILS ABSOLUTE 4.8 10*3/uL Normal 1.8-7.5 [facility] Comment on above: Performed By: #### L [id number] ####Material Requisitioner: VELMA VALADEZ ([id number])[facility] ([facility])[address] [place] [address] Neutrophils/100 WBC (Bld) 64.7 % Normal 38.0-82.0 [facility] Comment on above: Performed By: #### L [id number] ####Material Requisitioner: VELMA VALADEZ ([id number])[facility] ([facility])[address] [place] [address] NRBC 0.0 /100 WBCs Normal 0.0-2.0 [facility] Comment on above: Performed By: #### L [id number] ####Material Requisitioner: VELMA VALADEZ ([id number])[facility] ([facility])[address] [place] [address] [place] Platelet mean volume (Bld) [Entitic vol] 10.1 fL Normal 9.0-12.7 [facility] Comment on above: Performed By: #### L [id number] ####Material Requisitioner: VELMA VALADEZ ([id number])[facility])[address] [place] [address] Platelets (Bld) [#/Vol] 223 10*3/uL Normal 140-440 [facility] Comment on above: Performed By: #### L [id number] ####Material Requisitioner: VELMA VALADEZ ([id number])[facility])[address] [place] [address] RBC (Bld) [#/Vol] 2.85 10*6/uL Low 3.80-5.20 [facility] Comment on above: Performed By: #### L [id number] ####Material Requisitioner: VELMA VALADEZ ([id number])[facility])[address] [place] [address] WBC (Bld) [#/Vol] 7.5 10*3/uL Normal 3.6-10.7 [facility] Comment on above: Performed By: #### L [id number] ####Material Requisitioner: VELMA VALADEZ ([id number])[facility])[address] [place] [address] IDNon 04-08-2024 IDN Progressing Normal [facility] - Coagulationon 0 04-08-2024 PT Coag (Bld) [Time] 11.2 s 9.0 - 1 2.0 s [facility] No Panel Informationon 04-08 [facility] PROTHROMBIN TIMEon INR Coag (PPP) [Relative time] 1.0 {INR} Normal 0.9-1.1 [facility] Comment on above: Result Comment: Timothy [...] Myocardial Infarction Performed By: #### L [id number], [id number] ####Material Requisitioner: VELMA VALADEZ ([id number])[facility] ([facility])[address] [place] [address] PT Coag (PPP) [Time] 11.2 s Normal 9.0-12.0 [facility] Comment on above: Performed By: #### L [id number], [id number] ####Material Requisitioner: VELMA VALADEZ ([id number])[facility] ([facility])[address] [place] [address] PT Coag (Bld) [Time]on 04-08 INR Coag (PPP) [Relative time] 1.0 {INR} 0.9 - 1.1 [facility] Comment on above: Recommended Anticoag ulant Therapy: [...] Interpretation and review of laboratory results Normal [facility] Progress Noteon 04-08-2024 Progress Note Normal [facility] Progress Note Normal [facility] aPTT Coag (Bld) [Time]on aPTT Coag (PPP) [Time] 51.5 s High 20.0 - 30.5 s [facility] Interpretation and review of laboratory results Abnormal [facility] NOTE: The therapeuti c time for Heparin anticoagulation, based on Xa activity inhibition, is an APTT of 46-80 seconds. [facility] aPTT Coag (PPP) [Time] 59.8 s High 20.0 - 30.5 s [facility] Interpretation and review of laboratory results Abnormal [facility] NOTE: The therapeuti c time for Heparin anticoagulation, based on Xa activity inhibition, is an APTT of 46-80 seconds. [facility] aPTT Coag (PPP) [Time] 41.4 s High 20.0 - 30.5 s [facility] Interpretation and review of laboratory results Abnormal [facility] NOTE: The therapeuti c time for Heparin anticoagulation, based on Xa activity inhibition, is an APTT of 46-80 seconds. [facility] APTTon 04-07-2024 aPTT Coag (Bld) [Time] 54.7 s High 20.0-30.5 [facility] Comment on above: Result Comment: BUBBA Garcia COMMENTS:NOTE: The therapeutic time for Heparin anticoagulation, based on Xa activity inhibition, is an APTT of 46-80 seconds. Performed By: #### L [id number] ####Material Requisitioner: VELMA VALADEZ ([id number])[facility])[address] [place] [address] aPTT Coag (Bld) [Time] 77.7 s High 20.0-30.5 [facility] Comment on above: Result Comment: BUBBA Garcia COMMENTS:NOTE: The therapeutic time for Heparin anticoagulation, based on Xa activity inhibition, is an APTT of 46-80 seconds. Performed By: #### L [id number], [id number] ####Material Requisitioner: VELMA VALADEZ ([id number])[facility] ([facility])[address] [place] [address] BASIC METABOLIC PANELon 03-19 Anion gap [Moles/Vol] 4 mmol/L Normal 3-13 [facility] Comment on above: Performed By: #### L AB15 ####Material Requisitioner: VELMA VALADEZ ([id number])[facility] ([facility])[address] [place] [address] Calcium [Mass/Vol] 8.8 mg/dL Normal 8.4-10.4 [facility] Comment on above: Performed By: #### L AB15 ####Material Requisitioner: VELMA VALADEZ ([id number])[facility])[address] [place] [address] Chloride [Moles/Vol] 115 mmol/L High 98-107 [facility] Comment on above: Performed By: #### L AB15 ####Material Requisitioner: VELMA VALADEZ ([id number])[facility] ([facility])[address] [place] [address] CO2 [Moles/Vol] 17 mmol/L Low 22-30 [facility] Comment on above: Performed By: #### L AB15 ####Material Requisitioner: VELMA VALADEZ ([id number])[facility] ([facility])[address] [place] [address] Creatinine [Mass/Vol] 0.90 mg/dL Normal 0.52-1.04 [facility] Comment on above: Performed By: #### L AB15 ####Material Requisitioner: VELMA VALADEZ ([id number])[facility])[address] [place] [address] GLOMERULAR FILTRATION RATE ML/MIN/1.73 SQ M.PREDICTED 63.2 mL/min/1.73m*2 Normal >60.0 [facility] Comment on above: Result Comment: Calc ulation based on the Chronic Kidney Disease Epidemiology Collaboration (CKD-EPI) equation refit without adjustment for race Performed By: #### L AB15 ####Material Requisitioner: VELMA VALADEZ ([id number])[facility] ([facility])[address] [place] [address] Glucose [Mass/Vol] 139 mg/dL High 70-100 [facility] Comment on above: Performed By: #### L AB15 ####Material Requisitioner: VELMA VALADEZ ([id number])[facility])[address] [place] [address] Potassium [Moles/Vol] 4.7 mmol/L Normal 3.5-5.1 [facility] Comment on above: Performed By: #### L AB15 ####Material Requisitioner: VELMA VALADEZ ([id number])[facility])[address] [place] [address] Sodium [Moles/Vol] 136 mmol/L Normal 135-145 [facility] Comment on above: Performed By: #### L AB15 ####Material Requisitioner: VELMA [id number])[facility] ([facility])[address] [place] [address] Urea nitrogen [Mass/Vol] 16 mg/dL Normal 7-17 [facility] Comment on above: Performed By: #### L AB15 ####Material Requisitioner: VELMA VALADEZ ([id number])[facility] [place] [address] Basic metabolic 1998 panelon 04-07-2024 Anion gap [Moles/Vol] 4 mmol/L 3 - 13 mmol/L [facility] Calcium [Mass/Vol] 8.8 mg/dL 8.4 - 10. 4 mg/dL [facility] Chloride [Moles/Vol] 115 mmol/L High 98 - 10 7 mmol/L [facility] CO2 [Moles/Vol] 17 mmol/L Low 22 - 30 mmol/L [facility] Creatinine [Mass/Vol] 0.90 mg/dL 0.52 - 1.04 mg/dL [facility] GFR/1.73 sq M.predicted (S/P/Bld) [Vol rate/Area] 63.2 mL/min - PINF [facility] Comment on above: Calculation based on the Chronic Kidney Disease Epidemiology Collaboration (CKD-EPI) equation refit without adjustment for race Glucose [Mass/Vol] 139 mg/dL High 70 - 100 mg/dL [facility] Interpretation and review of laboratory results Abnormal [facility] Potassium [Moles/Vol] 4.7 mmol/L 3.5 - 5.1 mmol/L [facility] Sodium [Moles/Vol] 136 mmol/L 135 - 145 mmol/L [facility] Urea nitrogen [Mass/Vol] 16 mg/dL 7 - 17 mg/dL [facility] CBC W Auto Differential pane l (Bld)on 04-07-2024 Basophils (Bld) [#/Vol] 0.0 10*3/uL 0.0 - 0.2 10*3/uL [facility] Basophils/100 WBC (Bld) 0.2 % 0.0 - 2.0 % [facility] Eosinophils (Bld) [#/Vol] 0.0 10*3/uL 0.0 - 0.5 10*3/uL [facility] Eosinophils/100 WBC (Bld) 0.0 % 0.0 - 6.0 % [facility] Erythrocyte distribution width (RBC) [Ratio] 14.3 % 11.5 - 15.0 % [facility] Hematocrit (Bld) [Volume fraction] 27.0 % Low 35.0 - 47.0 % [facility] Hemoglobin (Bld) [Mass/Vol] 8.6 g/dL Low 11.7 - 16.0 g/dL [facility] Immature granulocytes (Bld) [#/Vol] 0.0 10*3/uL NINF - 0.1 10*3/uL [facility] Immature granulocytes/100 WBC (Bld) 0.5 % 0.0 - 2.0 % [facility] Interpretation and review of laboratory results Abnormal [facility] Lymphocytes (Bld) [#/Vol] 0.8 10*3/uL Low 1.0 - 4.3 10*3/uL [facility] Lymphocytes/100 WBC (Bld) 19.2 % 15.0 - 45.0 % [facility] MCH (RBC) [Entitic mass] 30.1 pg 26.0 - 34.0 pg [facility] MCHC (RBC) [Mass/Vol] 31.9 % 30.5 - 36.0 % [facility] MCV (RBC) [Entitic vol] 94.4 fL 77.0 - 99.0 fL [facility] Monocytes (Bld) [#/Vol] 0.3 10*3/uL 0.0 - 0.9 10*3/uL [facility] Monocytes/100 WBC (Bld) 7.5 % 5.0 - 13.0 % [facility] Neutrophils (Bld) [#/Vol] 2.9 10*3/uL 1.8 - 7.5 10*3/uL [facility] Neutrophils/100 WBC (Bld) 72.6 % 38.0 - 82.0 % [facility] Nucleated RBC/100 WBC (Bld) [Ratio] 0.0 % [facility] Platelet mean volume (Bld) [Entitic vol] 10.5 fL 9.0 - 12.7 fL [facility] Platelets (Bld) [#/Vol] 202 10*3/uL 140 - 440 10*3/uL [facility] RBC (Bld) [#/Vol] 2.86 10*6/uL Low 3.80 - 5.2 0 10*6/uL [facility] WBC (Bld) [#/Vol] 4.0 10*3/uL 3.6 - 10.7 10*3/uL [facility] CBC WITH AUTO DIFFERENTIALon 04-07-2024 Basophils (Bld) [#/Vol] 0.0 10*3/uL Normal 0.0-0.2 [facility] Comment on above: Performed By: #### L [id number] ####Material Requisitioner: VELMA VALADEZ ([id number])[facility])[address] [place] [address] Basophils/100 WBC (Bld) 0.2 % Normal 0.0-2.0 S [facility] Comment on above: Performed By: #### L [id number] ####Material Requisitioner: VELMA VALADEZ ([id number])[facility])[address] [place] [address] Eosinophils (Bld) [#/Vol] 0.0 10*3/uL Normal 0.0-0.5 [facility] Comment on above: Performed By: #### L [id number] ####Material Requisitioner: VELMA VALADEZ ([id number])[facility])[address] [place] [address] Eosinophils/100 WBC (Bld) 0.0 % Normal 0.0-6.0 [facility] Comment on above: Performed By: #### L [id number] ####Material Requisitioner: VELMA VALADEZ ([id number])[facility])[address] [place] [address] Erythrocyte distribution width (RBC) [Ratio] 14.3 % Normal 11.5-15.0 [facility] Comment on above: Performed By: #### L [id number] ####Material Requisitioner: VELMA VALADEZ ([id number])[facility])[address] [place] [address] Hematocrit (Bld) [Volume fraction] 27.0 % Low 35.0-47.0 [facility] Comment on above: Performed By: #### L [id number] ####Material Requisitioner: VELMA VALADEZ ([id number])[facility])[address] [place] [address] Hemoglobin (Bld) [Mass/Vol] 8.6 g/dL Low 11.7-16.0 [facility] Comment on above: Performed By: #### L [id number] ####Material Requisitioner: VELMA VALADEZ ([id number])[facility])[address] [place] [address] IMMATURE GRANS % 0.5 % Normal 0.0-2.0 [facility] Comment on above: Performed By: #### L [id number] ####Material Requisitioner: VELMA VALADEZ ([id number])[facility])[address] [place] [address] IMMATURE GRANS ABSOLUTE 0.0 10*3/uL Normal <0.1 [facility] Comment on above: Performed By: #### L [id number] ####Material Requisitioner: VELMA VALADEZ ([id number])[facility])[address] [place] [address] Lymphocytes (Bld) [#/Vol] 0.8 10*3/uL Low 1.0-4.3 [facility] Comment on above: Performed By: #### L [id number] ####Material Requisitioner: VELMA VALADEZ ([id number])[facility])[address] [place] [address] Lymphocytes/100 WBC (Bld) 19.2 % Normal 15.0-45.0 [facility] Comment on above: Performed By: #### L [id number] ####Material Requisitioner: VELMA VALADEZ ([id number])[facility])[address] [place] [address] MCH (RBC) [Entitic mass] 30.1 pg Normal 26.0-34.0 [facility] Comment on above: Performed By: #### L [id number] ####Material Requisitioner: VELMA VALADEZ ([id number])[facility])[address] [place] [address] MCHC 31.9 % Normal 30.5-36.0 [facility] Comment on above: Performed By: #### L [id number] ####Material Requisitioner: VELMA VALADEZ ([id number])[facility])[address] [place] [address] MCV (RBC) [Entitic vol] 94.4 fL Normal 77.0-99.0 [facility] Comment on above: Performed By: #### L [id number] ####Material Requisitioner: VELMA VALADEZ ([id number])[facility] ([facility])[address] [place] [address] Monocytes (Bld) [#/Vol] 0.3 10*3/uL Normal 0.0-0.9 [facility] Comment on above: Performed By: #### L [id number] ####Material Requisitioner: VELMA VALADEZ ([id number])[facility] ([facility])[address] [place] [address] Monocytes/100 WBC (Bld) 7.5 % Normal 5.0-13.0 [facility] Comment on above: Performed By: #### L [id number] ####Material Requisitioner: VELMA VALADEZ ([id number])[facility] ([facility])[address] [place] [address] NEUTROPHILS ABSOLUTE 2.9 10*3/uL Normal 1.8-7.5 [facility] Comment on above: Performed By: #### L [id number] ####Material Requisitioner: VELMA VALADEZ ([id number])[facility])[address] [place] [address] Neutrophils/100 WBC (Bld) 72.6 % Normal 38.0-82.0 [facility] Comment on above: Performed By: #### L [id number] ####Material Requisitioner: VELMA VALADEZ ([id number])[facility])[address] [place] [address] NRBC 0.0 /100 WBCs Normal 0.0-2.0 [facility] Comment on above: Performed By: #### L [id number] ####Material Requisitioner: VELMA VALADEZ ([id number])[facility])[address] [place] [address] Platelet mean volume (Bld) [Entitic vol] 10.5 fL Normal 9.0-12.7 [facility] Comment on above: Performed By: #### L [id number] ####Material Requisitioner: VELMA VALADEZ ([id number])[facility] ([facility])[address] [place] [address] Platelets (Bld) [#/Vol] 202 10*3/uL Normal 140-440 [facility] Comment on above: Performed By: #### L [id number] ####Material Requisitioner: VELMA VALADEZ ([id number])[facility])[address] [place] [address] RBC (Bld) [#/Vol] 2.86 10*6/uL Low 3.80-5.20 [facility] Comment on above: Performed By: #### L [id number] ####Material Requisitioner: VELMA VALADEZ ([id number])[facility])[address] [place] [address] WBC (Bld) [#/Vol] 4.0 10*3/uL Normal 3.6-10.7 [facility] Comment on above: Performed By: #### L [id number] ####Material Requisitioner: VELMA VALADEZ ([id number])[facility])[address] [place] [address] IDNon 04-07-2024 IDN Normal [facility] - Coagulationon 0 04-07-2024 PT Coag (Bld) [Time] 11.1 s 9.0 - 1 2.0 s [facility] No Panel Informationon 04-07 [facility] Nursing Noteon 04-07-2024 Nursing Note NO changes to hepari n infusion at this time. Normal [facility] PROTHROMBIN TIMEon INR Coag (PPP) [Relative time] 1.0 {INR} Normal 0.9-1.1 [facility] Comment on above: Result Comment: Timothy [...] Myocardial Infarction Performed By: #### [place] AB325, [id number] ####Material Requisitioner: VELMA VALADEZ ([id number])[address] PT Coag (PPP) [Time] 11.1 s Normal 9.0-12.0 [facility] Comment on above: Performed By: #### [place] AB325, [id number] ####Material Requisitioner: VELMA VALADEZ ([id number])[facility] ([facility])[address] [place] [address] PT Coag (Bld) [Time]on 04-07 INR Coag (PPP) [Relative time] 1.0 {INR} 0.9 - 1.1 [facility] Comment on above: Recommended Anticoag ulant Therapy: [...] and review of laboratory results Normal [facility] Progress Noteon 04-07-2024 Progress [facility] Progress Note Normal [facility] Haload [facility] Progress Note Normal [facility] aPTT Coag (Bld) [Time]on aPTT Coag (PPP) [Time] 54.7 s High 20.0 - 30.5 s [facility] Interpretation and review of laboratory results Abnormal [facility] NOTE: The therapeuti c time for Heparin anticoagulation, based on Xa activity inhibition, is an APTT of 46-80 seconds. [facility] aPTT Coag (PPP) [Time] 77.7 s High 20.0 - 30.5 s [facility] Interpretation and review of laboratory results Abnormal [facility] NOTE: The therapeuti c time for Heparin anticoagulation, based on Xa activity inhibition, is an APTT of 46-80 seconds. [facility] [id number] 04-06-2024 [id number] Normal [facility] APTTon 04-06-2024 aPTT Coag (Bld) [Time] 43.3 s High 20.0-30.5 [facility] Comment on above: Result Comment: BUBBA Garcia COMMENTS:NOTE: The therapeutic time for Heparin anticoagulation, based on Xa activity inhibition, is an APTT of 46-80 seconds. Performed By: #### L [id number] ####Material Requisitioner: VELMA VALADEZ ([id number])[facility] ([address] aPTT Coag (Bld) [Time] 97.6 s High 20.0-30.5 [facility] Comment on above: Result Comment: BUBBA Garcia COMMENTS:NOTE: The therapeutic time for Heparin anticoagulation, based on Xa activity inhibition, is an APTT of 46-80 seconds. Performed By: #### L [id number] ####Material Requisitioner: VELMA VALADEZ ([id number])[facility] ([facility])[address] [place] [address] Anesthesia Noteon 04-06-2024 Anesthesia Note Normal [facility] Anesthesia Note Normal [facility] BASIC METABOLIC PANELon 03-19 Anion gap [Moles/Vol] 4 mmol/L Normal 3-13 [facility] Comment on above: Performed By: #### L AB15 ####Material Requisitioner: VELMA VALADEZ ([id number])[facility] ([facility])[address] [place] [address] Calcium [Mass/Vol] 8.9 mg/dL Normal 8.4-10.4 [facility] Comment on above: Performed By: #### L AB15 ####Material Requisitioner: VELMA VALADEZ ([id number])[facility] ([facility])[address] [place] [address] Chloride [Moles/Vol] 114 mmol/L High 98-107 [facility] Comment on above: Performed By: #### L AB15 ####Material Requisitioner: VELMA VALADEZ ([id number])[facility] ([facility])[address] [place] [address] CO2 [Moles/Vol] 18 mmol/L Low 22-30 [facility] Comment on above: Performed By: #### L AB15 ####Material Requisitioner: VELMA VALADEZ ([id number])[facility])[address] [place] [address] Creatinine [Mass/Vol] 0.96 mg/dL Normal 0.52-1.04 [facility] Comment on above: Performed By: #### L AB15 ####Material Requisitioner: VELMA VALADEZ ([id number])[facility] ([facility])[address] [place] [address] [place] GLOMERULAR FILTRATION RATE ML/MIN/1.73 SQ M.PREDICTED 58.5 mL/min/1.73m*2 Low >60.0 [facility] Comment on above: Result Comment: Calc ulation based on the Chronic Kidney Disease Epidemiology Collaboration (CKD-EPI) equation refit without adjustment for race Performed By: #### L AB15 ####Material Requisitioner: VELMA VALADEZ ([id number])[facility] ([facility])[address] [place] [address] Glucose [Mass/Vol] 97 mg/dL Normal 70-100 [facility] Comment on above: Performed By: #### L AB15 ####Material Requisitioner: VELMA VALADEZ ([id number])[facility] [facility])[address] [place] [address] Potassium [Moles/Vol] 4.6 mmol/L Normal 3.5-5.1 [facility] Comment on above: Performed By: #### L [id number] ####Material Requisitioner: VELMA VALADEZ ([id number])[facility] ([facility])[address] [place] [address] Sodium [Moles/Vol] 135 mmol/L Normal 135-145 [facility] Comment on above: Performed By: #### L [id number] ####Material Requisitioner: VELMA VALADEZ ([id number])[facility] ([facility])[address] [place] [address] Urea nitrogen [Mass/Vol] 17 mg/dL Normal 7-17 [facility] Comment on above: Performed By: #### L AB15 ####Material Requisitioner: VELMA VALADEZ ([id number])[facility] ([facility])[address] [place] [address] BLOOD TYPE AND SCREEN GELon 04-06-2024 ABO GROUPING AB Normal [facility] Comment on above: Performed By: #### L [id number] ####Material Requisitioner: VELMA VALADEZ ([id number])[facility] BLOOD BANK ([facility])[address] [place] [address] RH TYPE IN BLOOD Positive Normal [facility] Comment on above: Performed By: #### L [id number] ####Material Requisitioner: VELMA VALADEZ ([id number])[facility] BLOOD [facility] ([facility])[address] [place] [address] Basic metabolic 1998 panelon 04-06-2024 Anion gap [Moles/Vol] 4 mmol/L 3 - 13 mmol/L [facility] Calcium [Mass/Vol] 8.9 mg/dL 8.4 - 10. 4 mg/dL [facility] Chloride [Moles/Vol] 114 mmol/L High 98 - 10 7 mmol/L [facility] CO2 [Moles/Vol] 18 mmol/L Low 22 - 30 mmol/L [facility] Creatinine [Mass/Vol] 0.96 mg/dL 0.52 - 1.04 mg/dL [facility] GFR/1.73 sq M.predicted (S/P/Bld) [Vol rate/Area] 58.5 mL/min Low - PINF [facility] Comment on above: Calculation based on the Chronic Kidney Disease Epidemiology Collaboration (CKD-EPI) equation refit without adjustment for race Glucose [Mass/Vol] 97 mg/dL 70 - 100 mg/dL [facility] Interpretation and review of laboratory results Abnormal [facility] Potassium [Moles/Vol] 4.6 mmol/L 3.5 - 5.1 mmol/L [facility] Sodium [Moles/Vol] 135 mmol/L 135 - 145 mmol/L [facility] Urea nitrogen [Mass/Vol] 17 mg/dL 7 - 17 mg/dL [facility] Blood type and Crossmatch pa juan (Bld)on 04-06-2024 ABO group Nom (Bld) AB [facility] Blood group antibody screen GEL Ql Negative [facility] D Ag Ql (RBC) Positive [facility] Healt [facility] CARECOORDon 04-06-2024 CARECOORD Normal [facility] CARECOMCCLURE Normal [facility] CBC W Auto Differential pane l (Bld)on 04-06-2024 Basophils (Bld) [#/Vol] 0.1 10*3/uL 0.0 - 0.2 10*3/uL [facility] Basophils/100 WBC (Bld) 1.1 % 0.0 - 2.0 % [facility] Eosinophils (Bld) [#/Vol] 0.1 10*3/uL 0.0 - 0.5 10*3/uL [facility] Eosinophils/100 WBC (Bld) 2.7 % 0.0 - 6.0 % [facility] Erythrocyte distribution width (RBC) [Ratio] 14.3 % 11.5 - 15.0 % [facility] Hematocrit (Bld) [Volume fraction] 29.8 % Low 35.0 - 47.0 % [facility] Hemoglobin (Bld) [Mass/Vol] 9.7 g/dL Low 11.7 - 16.0 g/dL [facility] Immature granulocytes (Bld) [#/Vol] 0.0 10*3/uL NINF - 0.1 10*3/uL [facility] Immature granulocytes/100 WBC (Bld) 0.2 % 0.0 - 2.0 % [facility] Interpretation and review of laboratory results Abnormal [facility] Lymphocytes (Bld) [#/Vol] 1.5 10*3/uL 1.0 - 4.3 10*3/uL [facility] Lymphocytes/100 WBC (Bld) 33.0 % 15.0 - 45.0 % [facility] MCH (RBC) [Entitic mass] 30.3 pg 26.0 - 34.0 pg [facility] MCHC (RBC) [Mass/Vol] 32.6 % 30.5 - 36.0 % [facility] MCV (RBC) [Entitic vol] 93.1 fL 77.0 - 99.0 fL [facility] Monocytes (Bld) [#/Vol] 0.5 10*3/uL 0.0 - 0.9 10*3/uL [facility] Monocytes/100 WBC (Bld) 10.5 % 5.0 - 13.0 % [facility] Neutrophils (Bld) [#/Vol] 2.4 10*3/uL 1.8 - 7.5 10*3/uL [facility] Neutrophils/100 WBC (Bld) 52.5 % 38.0 - 82.0 % [facility] Nucleated RBC/100 WBC (Bld) [Ratio] 0.0 % [facility] Platelet mean volume (Bld) [Entitic vol] 10.4 fL 9.0 - 12.7 fL [facility] Platelets (Bld) [#/Vol] 207 10*3/uL 140 - 440 10*3/uL [facility] RBC (Bld) [#/Vol] 3.20 10*6/uL Low 3.80 - 5.2 0 10*6/uL [facility] WBC (Bld) [#/Vol] 4.5 10*3/uL 3.6 - 10.7 10*3/uL [facility] CBC WITH AUTO DIFFERENTIALon 04-06-2024 Basophils (Bld) [#/Vol] 0.1 10*3/uL Normal 0.0-0.2 [facility] Comment on above: Performed By: #### L [id number] ####Material Requisitioner: VELMA VALADEZ ([id number])[address] Basophils/100 WBC (Bld) 1.1 % Normal 0.0-2.0 S [facility] Comment on above: Performed By: #### L [id number] ####Material Requisitioner: VELMA VALADEZ ([id number])[facility])[address] [place] [address] Eosinophils (Bld) [#/Vol] 0.1 10*3/uL Normal 0.0-0.5 [facility] Comment on above: Performed By: #### L [id number] ####Material Requisitioner: VELMA VALADEZ ([id number])[facility])[address] [place] [address] Eosinophils/100 WBC (Bld) 2.7 % Normal 0.0-6.0 [facility] Comment on above: Performed By: #### L [id number] ####Material Requisitioner: VELMA VALADEZ ([id number])[address] Erythrocyte distribution width (RBC) [Ratio] 14.3 % Normal 11.5-15.0 [facility] Comment on above: Performed By: #### L [id number] ####Material Requisitioner: VELMA VALADEZ ([id number])[facility])[address] [place] [address] Hematocrit (Bld) [Volume fraction] 29.8 % Low 35.0-47.0 [facility] Comment on above: Performed By: #### L [id number] ####Material Requisitioner: VELMA VALADEZ ([id number])[address] Hemoglobin (Bld) [Mass/Vol] 9.7 g/dL Low 11.7-16.0 [facility] Comment on above: Performed By: #### L [id number] ####Material Requisitioner: VELMA VALADEZ ([id number])[facility])[address] [place] [address] IMMATURE GRANS % 0.2 % Normal 0.0-2.0 [facility] Comment on above: Performed By: #### L [id number] ####Material Requisitioner: VELMA VALADEZ ([id number])[address] IMMATURE GRANS ABSOLUTE 0.0 10*3/uL Normal <0.1 [facility] Comment on above: Performed By: #### L [id number] ####Material Requisitioner: VELMA VALADEZ ([id number])[facility])[address] [place] [address] Lymphocytes (Bld) [#/Vol] 1.5 10*3/uL Normal 1.0-4.3 [facility] Comment on above: Performed By: #### L [id number] ####Material Requisitioner: VELMA VALADEZ ([id number])[facility])[address] [place] [address] Lymphocytes/100 WBC (Bld) 33.0 % Normal 15.0-45.0 [facility] Comment on above: Performed By: #### L [id number] ####Material Requisitioner: VELMA VALADEZ ([id number])[facility])[address] [place] [address] MCH (RBC) [Entitic mass] 30.3 pg Normal 26.0-34.0 [facility] Comment on above: Performed By: #### L [id number] ####Material Requisitioner: VELMA VALADEZ ([id number])[facility])[address] [place] [address] MCHC 32.6 % Normal 30.5-36.0 [facility] Comment on above: Performed By: #### L [id number] ####Material Requisitioner: VELMA VALADEZ ([id number])[facility])[address] [place] [address] MCV (RBC) [Entitic vol] 93.1 fL Normal 77.0-99.0 [facility] Comment on above: Performed By: #### L [id number] ####Material Requisitioner: VELMA VALADEZ ([id number])[facility])[address] [place] [address] Monocytes (Bld) [#/Vol] 0.5 10*3/uL Normal 0.0-0.9 [facility] Comment on above: Performed By: #### L [id number] ####Material Requisitioner: VELMA VALADEZ ([id number])[facility] ([facility])[address] [place] [address] Monocytes/100 WBC (Bld) 10.5 % Normal 5.0-13.0 [facility] Comment on above: Performed By: #### L [id number] ####Material Requisitioner: VELMA VALADEZ ([id number])[facility] ([facility])[address] [place] [address] NEUTROPHILS ABSOLUTE 2.4 10*3/uL Normal 1.8-7.5 [facility] Comment on above: Performed By: #### L [id number] ####Material Requisitioner: VELMA VALADEZ ([id number])[facility] ([facility])[address] [place] [address] Neutrophils/100 WBC (Bld) 52.5 % Normal 38.0-82.0 [facility] Comment on above: Performed By: #### L [id number] ####Material Requisitioner: VELMA VALADEZ ([id number])[facility] ([facility])[address] [place] [address] NRBC 0.0 /100 WBCs Normal 0.0-2.0 [facility] Comment on above: Performed By: #### L [id number] ####Material Requisitioner: VELMA VALADEZ ([id number])[facility] ([facility])[address] [place] [address] Platelet mean volume (Bld) [Entitic vol] 10.4 fL Normal 9.0-12.7 [facility] Comment on above: Performed By: #### L [id number] ####Material Requisitioner: VELMA VALADEZ ([id number])[facility] ([facility])[address] [place] [address] Platelets (Bld) [#/Vol] 207 10*3/uL Normal 140-440 [facility] Comment on above: Performed By: #### L [id number] ####Material Requisitioner: VELMA [id number])[facility] ([facility])[address] [place] [address] RBC (Bld) [#/Vol] 3.20 10*6/uL Low 3.80-5.20 [facility] Comment on above: Performed By: #### L [id number] ####Material Requisitioner: VELMA VALADEZ ([id number])[facility] [place] [address] WBC (Bld) [#/Vol] 4.5 10*3/uL Normal 3.6-10.7 [facility] Comment on above: Performed By: #### L [id number] ####Material Requisitioner: VELMA VALADEZ ([id number])[facility] [place] [address] No Panel Informationon 04-06 There is no interpretation needed for this exam. IMAGING Nursing Noteon 04-06-2024 Nursing Note Patient report rader d to 4N RN and denies any further questions. Patient resting comfortably and no signs of distress. Per resident patient to lay flat for 2 hours and restart heparin GTT at 1215. Transport notified. Normal [facility] Op Noteon 04-06-2024 Op Note Normal [facility] Progress Noteon 04-06-2024 Progress Note Normal [facility] Progress Note Normal [facility] Progress Note Normal [facility] aPTT Coag (Bld) [Time]on aPTT Coag (PPP) [Time] 43.3 s High 20.0 - 30.5 s [facility] Interpretation and review of laboratory results Abnormal [facility] NOTE: The therapeuti c time for Heparin anticoagulation, based on Xa activity inhibition, is an APTT of 46-80 seconds. [facility] aPTT Coag (PPP) [Time] 97.6 s High 20.0 - 30.5 s [facility] Interpretation and review of laboratory results Abnormal [facility] NOTE: The therapeuti c time for Heparin anticoagulation, based on Xa activity inhibition, is an APTT of 46-80 seconds. [facility] 36on 04-05-2024 36 Surgery: Inpatient R LE venous mechanical thrombectomy Date of surgery: 04/06/24 Pre-testing: inpatient CPT codes: 65324 ICD 10: I82.401 Post-op or OV: Adriane to schedule Reps: Selvin Elaine) notified 04/05/24 Normal [facility] APTTon 04-05-2024 aPTT Coag (Bld) [Time] 76.6 s High 20.0-30.5 [facility] Comment on above: Result Comment: BUBBA Garcia COMMENTS:NOTE: The therapeutic time for Heparin anticoagulation, based on Xa activity inhibition, is an APTT of 46-80 seconds. Performed By: #### L [id number], [id number] ####Material Requisitioner: VELMA VALADEZ ([id number])[address] aPTT Coag (Bld) [Time] 69.9 s High 20.0-30.5 [facility] Comment on above: Result Comment: BUBBA Garcia COMMENTS:NOTE: The therapeutic time for Heparin anticoagulation, based on Xa activity inhibition, is an APTT of 46-80 seconds. Performed By: #### L [id number] ####Material Requisitioner: VELMA VALADEZ ([id number])[address] aPTT Coag (Bld) [Time] 88.8 s High 20.0-30.5 [facility] Comment on above: Result Comment: BUBBA Garcia COMMENTS:NOTE: The therapeutic time for Heparin anticoagulation, based on Xa activity inhibition, is an APTT of 46-80 seconds. Performed By: #### L [id number], [id number] ####Material Requisitioner: VELMA VALADEZ ([id number])[address] aPTT Coag (Bld) [Time] 109.7 s High 20.0-30.5 [facility] Comment on above: Result Comment: BUBBA Garcia COMMENTS:NOTE: The therapeutic time for Heparin anticoagulation, based on Xa activity inhibition, is an APTT of 46-80 seconds. Performed By: #### L [id number] ####Material Requisitioner: VELMA VALADEZ ([id number])[facility] ([facility])[address] [place] [address] BASIC METABOLIC PANELon 03-18 Anion gap [Moles/Vol] 3 mmol/L Normal 3-13 [facility] Comment on above: Performed By: #### L AB15 ####Material Requisitioner: VELMA VALADEZ ([id number])[facility] ([facility])[address] [place] [address] Calcium [Mass/Vol] 8.7 mg/dL Normal 8.4-10.4 [facility] Comment on above: Performed By: #### L AB15 ####Material Requisitioner: VELMA VALADEZ ([id number])[facility] ([facility])[address] [place] [address] Chloride [Moles/Vol] 113 mmol/L High 98-107 [facility] Comment on above: Performed By: #### L AB15 ####Material Requisitioner: VELMA VALADEZ ([id number])[facility] [place] [address] CO2 [Moles/Vol] 17 mmol/L Low 22-30 [facility] Comment on above: Performed By: #### L AB15 ####Material Requisitioner: VELMA VALADEZ ([id number])[facility] ([facility])[address] [place] [address] Creatinine [Mass/Vol] 1.12 mg/dL High 0.52-1.04 [facility] Comment on above: Performed By: #### L AB15 ####Material Requisitioner: VELMA VALADEZ ([id number])[facility] ([facility])[address] [place] [address] [place] GLOMERULAR FILTRATION RATE ML/MIN/1.73 SQ M.PREDICTED 48.6 mL/min/1.73m*2 Low >60.0 [facility] Comment on above: Result Comment: Calc ulation based on the Chronic Kidney Disease Epidemiology Collaboration (CKD-EPI) equation refit without adjustment for race Performed By: #### L AB15 ####Material Requisitioner: VELMA VALADEZ ([id number])[facility] ([facility])[address] [place] [address] Glucose [Mass/Vol] 102 mg/dL High 70-100 [facility] Comment on above: Performed By: #### L AB15 ####Material Requisitioner: VELMA VALADEZ ([id number])[facility] ([facility])[address] [place] [address] Potassium [Moles/Vol] 4.8 mmol/L Normal 3.5-5.1 [facility] Comment on above: Performed By: #### L AB15 ####Material Requisitioner: VELMA VALADEZ ([id number])[facility] ([facility])[address] [place] [address] Sodium [Moles/Vol] 133 mmol/L Low 135-145 [facility] Comment on above: Performed By: #### L AB15 ####Material Requisitioner: VELMA VALADEZ ([id number])[facility] ([facility])[address] [place] [address] Urea nitrogen [Mass/Vol] 25 mg/dL High 7-17 [facility] Comment on above: Performed By: #### L AB15 ####Material Requisitioner: VELMA VALADEZ ([id number])[facility])[address] [place] [address] Basic metabolic 1998 panelon 04-05-2024 Anion gap [Moles/Vol] 3 mmol/L 3 - 13 mmol/L [facility] Calcium [Mass/Vol] 8.7 mg/dL 8.4 - 10. 4 mg/dL [facility] Chloride [Moles/Vol] 113 mmol/L High 98 - 10 7 mmol/L [facility] CO2 [Moles/Vol] 17 mmol/L Low 22 - 30 mmol/L [facility] Creatinine [Mass/Vol] 1.12 mg/dL High 0.52 - 1.04 mg/dL [facility] GFR/1.73 sq M.predicted (S/P/Bld) [Vol rate/Area] 48.6 mL/min Low - PINF [facility] Comment on above: Calculation based on the Chronic Kidney Disease Epidemiology Collaboration (CKD-EPI) equation refit without adjustment for race Glucose [Mass/Vol] 102 mg/dL High 70 - 100 mg/dL [facility] Interpretation and review of laboratory results Abnormal [facility] Potassium [Moles/Vol] 4.8 mmol/L 3.5 - 5.1 mmol/L [facility] Sodium [Moles/Vol] 133 mmol/L Low 135 - 145 mmol/L [facility] Urea nitrogen [Mass/Vol] 25 mg/dL High 7 - 17 mg/dL [facility] CARECOORDon 04-05-2024 [facility] CBC W Auto Differential pane l (Bld)on 04-05-2024 Basophils (Bld) [#/Vol] 0.1 10*3/uL 0.0 - 0.2 10*3/uL [facility] Basophils/100 WBC (Bld) 1.0 % 0.0 - 2.0 % [facility] Eosinophils (Bld) [#/Vol] 0.2 10*3/uL 0.0 - 0.5 10*3/uL [facility] Eosinophils/100 WBC (Bld) 2.9 % 0.0 - 6.0 % [facility] Erythrocyte distribution width (RBC) [Ratio] 14.4 % 11.5 - 15.0 % [facility] Hematocrit (Bld) [Volume fraction] 32.3 % Low 35.0 - 47.0 % [facility] Hemoglobin (Bld) [Mass/Vol] 10.6 g/dL Low 11.7 - 16.0 g/dL [facility] Immature granulocytes (Bld) [#/Vol] 0.0 10*3/uL NINF - 0.1 10*3/uL [facility] Immature granulocytes/100 WBC (Bld) 0.3 % 0.0 - 2.0 % [facility] Interpretation and review of laboratory results Abnormal [facility] Lymphocytes (Bld) [#/Vol] 1.7 10*3/uL 1.0 - 4.3 10*3/uL [facility] Lymphocytes/100 WBC (Bld) 27.5 % 15.0 - 45.0 % [facility] MCH (RBC) [Entitic mass] 30.7 pg 26.0 - 34.0 pg [facility] MCHC (RBC) [Mass/Vol] 32.8 % 30.5 - 36.0 % [facility] MCV (RBC) [Entitic vol] 93.6 fL 77.0 - 99.0 fL [facility] Monocytes (Bld) [#/Vol] 0.6 10*3/uL 0.0 - 0.9 10*3/uL [facility] Monocytes/100 WBC (Bld) 9.0 % 5.0 - 13.0 % [facility] Neutrophils (Bld) [#/Vol] 3.6 10*3/uL 1.8 - 7.5 10*3/uL [facility] Neutrophils/100 WBC (Bld) 59.3 % 38.0 - 82.0 % [facility] Nucleated RBC/100 WBC (Bld) [Ratio] 0.0 % [facility] Platelet mean volume (Bld) [Entitic vol] 10.1 fL 9.0 - 12.7 fL [facility] Platelets (Bld) [#/Vol] 204 10*3/uL 140 - 440 10*3/uL [facility] RBC (Bld) [#/Vol] 3.45 10*6/uL Low 3.80 - 5.2 0 10*6/uL [facility] WBC (Bld) [#/Vol] 6.1 10*3/uL 3.6 - 10.7 10*3/uL [facility] CBC WITH AUTO DIFFERENTIALon 04-05-2024 Basophils (Bld) [#/Vol] 0.1 10*3/uL Normal 0.0-0.2 [facility] Comment on above: Performed By: #### L [id number] ####Material Requisitioner: VELMA VALADEZ ([id number])[facility])[address] [place] [address] Basophils/100 WBC (Bld) 1.0 % Normal 0.0-2.0 S [facility] Comment on above: Performed By: #### L [id number] ####Material Requisitioner: VELMA VALADEZ ([id number])[facility])[address] [place] [address] Eosinophils (Bld) [#/Vol] 0.2 10*3/uL Normal 0.0-0.5 [facility] Comment on above: Performed By: #### L [id number] ####Material Requisitioner: VELMA VALADEZ ([id number])[facility])[address] [place] [address] Eosinophils/100 WBC (Bld) 2.9 % Normal 0.0-6.0 [facility] Comment on above: Performed By: #### L [id number] ####Material Requisitioner: VELMA VALADEZ ([id number])[facility])[address] [place] [address] Erythrocyte distribution width (RBC) [Ratio] 14.4 % Normal 11.5-15.0 [facility] Comment on above: Performed By: #### L [id number] ####Material Requisitioner: VELMA VALADEZ ([id number])[address] Hematocrit (Bld) [Volume fraction] 32.3 % Low 35.0-47.0 [facility] Comment on above: Performed By: #### L [id number] ####Material Requisitioner: VELMA VALADEZ ([id number])[address] Hemoglobin (Bld) [Mass/Vol] 10.6 g/dL Low 11.7-16.0 [facility] Comment on above: Performed By: #### L [id number] ####Material Requisitioner: VELMA VALADEZ ([id number])[facility])[address] [place] [address] IMMATURE GRANS % 0.3 % Normal 0.0-2.0 [facility] Comment on above: Performed By: #### L [id number] ####Material Requisitioner: VELMA VALADEZ ([id number])[address] IMMATURE GRANS ABSOLUTE 0.0 10*3/uL Normal <0.1 [facility] Comment on above: Performed By: #### L [id number] ####Material Requisitioner: VELMA [id number])[facility])[address] [place] [address] Lymphocytes (Bld) [#/Vol] 1.7 10*3/uL Normal 1.0-4.3 [facility] Comment on above: Performed By: #### L [id number] ####Material Requisitioner: VELMA VALADEZ ([id number])[facility])[address] [place] [address] Lymphocytes/100 WBC (Bld) 27.5 % Normal 15.0-45.0 [facility] Comment on above: Performed By: #### L [id number] ####Material Requisitioner: VELMA VALADEZ ([id number])[facility])[address] [place] [address] MCH (RBC) [Entitic mass] 30.7 pg Normal 26.0-34.0 [facility] Comment on above: Performed By: #### L [id number] ####Material Requisitioner: VELMA VALADEZ ([id number])[facility])[address] [place] [address] MCHC 32.8 % Normal 30.5-36.0 [facility] Comment on above: Performed By: #### L [id number] ####Material Requisitioner: VELMA VALADEZ ([id number])[facility])[address] [place] [address] MCV (RBC) [Entitic vol] 93.6 fL Normal 77.0-99.0 [facility] Comment on above: Performed By: #### L [id number] ####Material Requisitioner: VELMA VALADEZ ([id number])[facility])[address] [place] [address] Monocytes (Bld) [#/Vol] 0.6 10*3/uL Normal 0.0-0.9 [facility] Comment on above: Performed By: #### L [id number] ####Material Requisitioner: VELMA VALADEZ ([id number])[facility])[address] [place] [address] [place] Monocytes/100 WBC (Bld) 9.0 % Normal 5.0-13.0 [facility] Comment on above: Performed By: #### L [id number] ####Material Requisitioner: VELMA VALADEZ ([id number])[facility] ([facility])[address] [place] [address] NEUTROPHILS ABSOLUTE 3.6 10*3/uL Normal 1.8-7.5 [facility] Comment on above: Performed By: #### L [id number] ####Material Requisitioner: VELMA VALADEZ ([id number])[facility] ([facility])[address] [place] [address] Neutrophils/100 WBC (Bld) 59.3 % Normal 38.0-82.0 [facility] Comment on above: Performed By: #### L [id number] ####Material Requisitioner: VELMA VALADEZ ([id number])[facility] ([facility])[address] [place] [address] NRBC 0.0 /100 WBCs Normal 0.0-2.0 [facility] [facility] Comment on above: Performed By: #### L [id number] ####Material Requisitioner: VELMA VALADEZ ([id number])[facility] ([facility])[address] [place] [address] Platelet mean volume (Bld) [Entitic vol] 10.1 fL Normal 9.0-12.7 [facility] Comment on above: Performed By: #### L [id number] ####Material Requisitioner: VELMA VALADEZ ([id number])[facility] ([facility])[address] [place] [address] Platelets (Bld) [#/Vol] 204 10*3/uL Normal 140-440 [facility] Comment on above: Performed By: #### L [id number] ####Material Requisitioner: VELMA VALADEZ ([id number])[facility] ([facility])[address] [place] [address] RBC (Bld) [#/Vol] 3.45 10*6/uL Low 3.80-5.20 [facility] Comment on above: Performed By: #### L [id number] ####Material Requisitioner: VELMA VALADEZ ([id number])[facility])[address] [place] [address] WBC (Bld) [#/Vol] 6.1 10*3/uL Normal 3.6-10.7 [facility] Comment on above: Performed By: #### L [id number] ####Material Requisitioner: VELMA VALADEZ ([id number])[facility])[address] [place] [address] IDNon 04-05-2024 IDN The patient is Moderately Stable - Low risk of patient condition declining or worsening The patient's goals for the shift include met The clinical goals for the shift include met Normal [facility] - Coagulationon 0 04-05-2024 PT Coag (Bld) [Time] 11.4 s 9.0 - 1 2.0 s [facility] PT Coag (Bld) [Time] 11.9 s 9.0 - 1 2.0 s [facility] No Panel Informationon 04-05 [facility] PROTHROMBIN TIMEon INR Coag (PPP) [Relative time] 1.0 {INR} Normal 0.9-1.1 [facility] Comment on above: Performed By: #### L [id number], [id number] ####Material Requisitioner: VELMA VALADEZ ([id number])[facility])[address] [place] [address] PT Coag (PPP) [Time] 11.4 s Normal 9.0-12.0 [facility] Comment on above: Performed By: #### L [id number], [id number] ####Material Requisitioner: VELMA VALADEZ ([id number])[facility])[address] [place] [address] INR Coag (PPP) [Relative time] 1.1 {INR} Normal 0.9-1.1 [facility] Comment on above: Result Comment: Timothy [...] Myocardial Infarction Performed By: #### L [id number], [id number] ####Material Requisitioner: VELMA VALADEZ ([id number])[facility] ([facility])[address] [place] [address] PT Coag (PPP) [Time] 11.9 s Normal 9.0-12.0 [facility] Comment on above: Performed By: #### Weston [id number], [id number] ####Material Requisitioner: VELMA VALADEZ ([id number])[facility] ([facility])[address] [place] [address] PT Coag (Bld) [Time]on 04-05 INR Coag (PPP) [Relative time] 1.0 {INR} 0.9 - 1.1 [facility] Interpretation and review of laboratory results Normal [facility] INR Coag (PPP) [Relative time] 1.1 {INR} 0.9 - 1.1 [facility] Comment on above: Recommended Anticoag ulant Therapy: [...] Interpretation and review of laboratory results Normal [facility] Progress Noteon 04-05-2024 Progress Note Normal [facility] Nutrition rescreen completed. Chart reviewed. Patient to be monitored and followed by the diet plastic eye technician. FADI Harmon Normal [facility] Progress Note Normal [facility] [employer] [facility] Progress Note Normal [facility] aPTT Coag (Bld) [Time]on aPTT Coag (PPP) [Time] 76.6 s High 20.0 - 30.5 s [facility] Interpretation and review of laboratory results Abnormal [facility] NOTE: The therapeuti c time for Heparin anticoagulation, based on Xa activity inhibition, is an APTT of 46-80 seconds. [facility] aPTT Coag (PPP) [Time] 69.9 s High 20.0 - 30.5 s [facility] Interpretation and review of laboratory results Abnormal [facility] NOTE: The therapeuti c time for Heparin anticoagulation, based on Xa activity inhibition, is an APTT of 46-80 seconds. [facility] aPTT Coag (PPP) [Time] 88.8 s High 20.0 - 30.5 s [facility] Interpretation and review of laboratory results Abnormal [facility] NOTE: The therapeuti c time for Heparin anticoagulation, based on Xa activity inhibition, is an APTT of 46-80 seconds. [facility] aPTT Coag (Bld) [Time]Ordere d By: Juni Millard on 04-05-2024 aPTT Coag (PPP) [Time] 109.7 s High 20.0 - 30.5 s [facility] Interpretation and review of laboratory results Abnormal [facility] NOTE: The therapeuti c time for Heparin anticoagulation, based on Xa activity inhibition, is an APTT of 46-80 seconds. [facility] [id number] 04-04-2024 [id number] Normal [facility] [id number] Normal [facility] APTTon 04-04-2024 aPTT Coag (Bld) [Time] 81.8 s High 20.0-30.5 [facility] Comment on above: Result Comment: BUBBA Garcia COMMENTS:NOTE: The therapeutic time for Heparin anticoagulation, based on Xa activity inhibition, is an APTT of 46-80 seconds. Performed By: #### L [id number] ####Material Requisitioner: VELMA VALADEZ ([id number])[facility] ([address] aPTT Coag (Bld) [Time] 81.4 s High 20.0-30.5 [facility] Comment on above: Result Comment: BUBBA Garcia COMMENTS:NOTE: The therapeutic time for Heparin anticoagulation, based on Xa activity inhibition, is an APTT of 46-80 seconds. Performed By: #### L [id number] ####Material Requisitioner: VELMA VALADEZ ([id number])[facility])[address] [place] [address] aPTT Coag (Bld) [Time] 132.2 s Critically high 20.0-30. 5 [facility] Comment on above: Result Comment: BUBBA Garcia COMMENTS:NOTE: The therapeutic time for Heparin anticoagulation, based on Xa activity inhibition, is an APTT of 46-80 seconds. Performed By: #### L [id number] ####Material Requisitioner: VELMA VALADEZ ([id number])[facility] ([facility])[address] [place] [address] BASIC METABOLIC PANELon - Anion gap [Moles/Vol] 8 mmol/L Normal 3-13 [facility] Comment on above: Performed By: #### L AB15 ####Material Requisitioner: VELMA VALADEZ ([id number])[facility] ([facility])[address] [place] [address] Calcium [Mass/Vol] 9.3 mg/dL Normal 8.4-10.4 [facility] Comment on above: Performed By: #### L AB15 ####Material Requisitioner: VELMA VALADEZ ([id number])[facility] ([facility])[address] [place] [address] [place] Chloride [Moles/Vol] 110 mmol/L High 98-107 [facility] Comment on above: Performed By: #### L AB15 ####Material Requisitioner: VELMA VALADEZ ([id number])[facility] ([facility])[address] [place] [address] [place] CO2 [Moles/Vol] 18 mmol/L Low 22-30 [facility] Comment on above: Performed By: #### L AB15 ####Material Requisitioner: VELMA VALADEZ ([id number])[facility] ([facility])[address] [place] [address] Creatinine [Mass/Vol] 1.45 mg/dL High 0.52-1.04 [facility] Comment on above: Performed By: #### L AB15 ####Material Requisitioner: VELMA VALADEZ ([id number])[facility])[address] [place] [address] GLOMERULAR FILTRATION RATE ML/MIN/1.73 SQ M.PREDICTED 35.6 mL/min/1.73m*2 Low >60.0 [facility] Comment on above: Result Comment: Calc ulation based on the Chronic Kidney Disease Epidemiology Collaboration (CKD-EPI) equation refit without adjustment for race Performed By: #### L AB15 ####Material Requisitioner: VELMA VALADEZ ([id number])[facility] ([facility])[address] [place] [address] Glucose [Mass/Vol] 100 mg/dL Normal 70-100 [facility] Comment on above: Performed By: #### L AB15 ####Material Requisitioner: VELMA VALADEZ ([id number])[facility] ([facility])[address] [place] [address] Potassium [Moles/Vol] 4.5 mmol/L Normal 3.5-5.1 [facility] Comment on above: Performed By: #### L AB15 ####Material Requisitioner: VELMA VALADEZ ([id number])[facility] ([facility])[address] [place] [address] Sodium [Moles/Vol] 135 mmol/L Normal 135-145 [facility] Comment on above: Performed By: #### L AB15 ####Material Requisitioner: VELMA VALADEZ ([id number])[facility] ([facility])[address] [place] [address] [place] Urea nitrogen [Mass/Vol] 30 mg/dL High 7-17 [facility] Comment on above: Performed By: #### L AB15 ####Material Requisitioner: VELMA VALADEZ ([id number])[facility] ([facility])[address] [place] [address] Basic metabolic 1998 panelOr dered By: Marielle Garcia on 04-04-2024 Anion gap [Moles/Vol] 8 mmol/L 3 - 13 mmol/L [facility] Calcium [Mass/Vol] 9.3 mg/dL 8.4 - 10. 4 mg/dL [facility] Chloride [Moles/Vol] 110 mmol/L High 98 - 10 7 mmol/L [facility] CO2 [Moles/Vol] 18 mmol/L Low 22 - 30 mmol/L [facility] Creatinine [Mass/Vol] 1.45 mg/dL High 0.52 - 1.04 mg/dL [facility] GFR/1.73 sq M.predicted (S/P/Bld) [Vol rate/Area] 35.6 mL/min Low - PINF [facility] Comment on above: Calculation based on the Chronic Kidney Disease Epidemiology Collaboration (CKD-EPI) equation refit without adjustment for race Glucose [Mass/Vol] 100 mg/dL 70 - 100 mg/dL [facility] Interpretation and review of laboratory results Abnormal [facility] Potassium [Moles/Vol] 4.5 mmol/L 3.5 - 5.1 mmol/L [facility] Sodium [Moles/Vol] 135 mmol/L 135 - 145 mmol/L [facility] Urea nitrogen [Mass/Vol] 30 mg/dL High 7 - 17 mg/dL [facility] CARECOORDon 04-04-2024 CARECOMCCLURE Normal [facility] CBC W Auto Differential pane l (Bld)on 04-04-2024 Basophils (Bld) [#/Vol] 0.1 10*3/uL 0.0 - 0.2 10*3/uL [facility] Basophils/100 WBC (Bld) 0.7 % 0.0 - 2.0 % [facility] Eosinophils (Bld) [#/Vol] 0.3 10*3/uL 0.0 - 0.5 10*3/uL [facility] Eosinophils/100 WBC (Bld) 3.2 % 0.0 - 6.0 % [facility] Erythrocyte distribution width (RBC) [Ratio] 14.2 % 11.5 - 15.0 % [facility] Hematocrit (Bld) [Volume fraction] 38.8 % 35.0 - 47.0 % [facility] Hemoglobin (Bld) [Mass/Vol] 12.5 g/dL 11.7 - 16.0 g/dL [facility] Immature granulocytes (Bld) [#/Vol] 0.1 10*3/uL High NINF - 0.1 10*3/uL [facility] Stremor Immature granulocytes/100 WBC (Bld) 0.6 % 0.0 - 2.0 % [facility] Interpretation and review of laboratory results Abnormal [facility] Lymphocytes (Bld) [#/Vol] 1.6 10*3/uL 1.0 - 4.3 10*3/uL [facility] Lymphocytes/100 WBC (Bld) 19.2 % 15.0 - 45.0 % [facility] MCH (RBC) [Entitic mass] 29.7 pg 26.0 - 34.0 pg [facility] MCHC (RBC) [Mass/Vol] 32.2 % 30.5 - 36.0 % [facility] MCV (RBC) [Entitic vol] 92.2 fL 77.0 - 99.0 fL [facility] Monocytes (Bld) [#/Vol] 0.8 10*3/uL 0.0 - 0.9 10*3/uL [facility] Monocytes/100 WBC (Bld) 9.9 % 5.0 - 13.0 % [facility] Neutrophils (Bld) [#/Vol] 5.3 10*3/uL 1.8 - 7.5 10*3/uL [facility] Neutrophils/100 WBC (Bld) 66.4 % 38.0 - 82.0 % [facility] Nucleated RBC/100 WBC (Bld) [Ratio] 0.0 % [facility] Platelet mean volume (Bld) [Entitic vol] 10.0 fL 9.0 - 12.7 fL [facility] Platelets (Bld) [#/Vol] 266 10*3/uL 140 - 440 10*3/uL [facility] RBC (Bld) [#/Vol] 4.21 10*6/uL 3.80 - 5.2 0 10*6/uL [facility] WBC (Bld) [#/Vol] 8.1 10*3/uL 3.6 - 10.7 10*3/uL [facility] CBC WITH AUTO DIFFERENTIALon 04-04-2024 Basophils (Bld) [#/Vol] 0.1 10*3/uL Normal 0.0-0.2 [facility] Comment on above: Performed By: #### L [id number] ####Material Requisitioner: VELMA VALADEZ ([id number])[facility])[address] [place] [address] Basophils/100 WBC (Bld) 0.7 % Normal 0.0-2.0 [facility] Comment on above: Performed By: #### L [id number] ####Material Requisitioner: VELMA VALADEZ ([id number])[facility])[address] [place] [address] Eosinophils (Bld) [#/Vol] 0.3 10*3/uL Normal 0.0-0.5 [facility] Comment on above: Performed By: #### L [id number] ####Material Requisitioner: VELMA VALADEZ ([id number])[facility])[address] [place] [address] Eosinophils/100 WBC (Bld) 3.2 % Normal 0.0-6.0 [facility] Comment on above: Performed By: #### L [id number] ####Material Requisitioner: VELMA VALADEZ ([id number])[facility])[address] [place] [address] Erythrocyte distribution width (RBC) [Ratio] 14.2 % Normal 11.5-15.0 [facility] Comment on above: Performed By: #### L [id number] ####Material Requisitioner: VELMA VALADEZ ([id number])[facility])[address] [place] [address] Hematocrit (Bld) [Volume fraction] 38.8 % Normal 35.0-47.0 [facility] Comment on above: Performed By: #### L [id number] ####Material Requisitioner: VELMA VALADEZ ([id number])[facility])[address] [place] [address] Hemoglobin (Bld) [Mass/Vol] 12.5 g/dL Normal 11.7-16.0 [facility] Comment on above: Performed By: #### L [id number] ####Material Requisitioner: VELMA [id number])[facility] ([facility])[address] [place] [address] IMMATURE GRANS % 0.6 % Normal 0.0-2.0 [facility] Comment on above: Performed By: #### L [id number] ####Material Requisitioner: VELMA VALADEZ ([id number])[facility])[address] [place] [address] IMMATURE GRANS ABSOLUTE 0.1 10*3/uL High <0.1 [facility] Comment on above: Performed By: #### L [id number] ####Material Requisitioner: VELMA VALADEZ ([id number])[facility])[address] [place] [address] Lymphocytes (Bld) [#/Vol] 1.6 10*3/uL Normal 1.0-4.3 [facility] Comment on above: Performed By: #### L [id number] ####Material Requisitioner: VELMA VALADEZ ([id number])[facility])[address] [place] [address] Lymphocytes/100 WBC (Bld) 19.2 % Normal 15.0-45.0 [facility] Comment on above: Performed By: #### L [id number] ####Material Requisitioner: VELMA VALADEZ ([id number])[facility])[address] [place] [address] MCH (RBC) [Entitic mass] 29.7 pg Normal 26.0-34.0 [facility] Comment on above: Performed By: #### L [id number] ####Material Requisitioner: VELMA VALADEZ ([id number])[facility])[address] [place] [address] MCHC 32.2 % Normal 30.5-36.0 [facility] Comment on above: Performed By: #### L [id number] ####Material Requisitioner: VELMA VALADEZ ([id number])[facility])[address] [place] [address] MCV (RBC) [Entitic vol] 92.2 fL Normal 77.0-99.0 [facility] Comment on above: Performed By: #### L [id number] ####Material Requisitioner: VELMA VALADEZ ([id number])[facility])[address] [place] [address] Monocytes (Bld) [#/Vol] 0.8 10*3/uL Normal 0.0-0.9 [facility] Comment on above: Performed By: #### L [id number] ####Material Requisitioner: VELMA VALADEZ ([id number])[facility] ([facility])[address] [place] [address] Monocytes/100 WBC (Bld) 9.9 % Normal 5.0-13.0 [facility] Comment on above: Performed By: #### L [id number] ####Material Requisitioner: VELMA VALADEZ ([id number])[facility])[address] [place] [address] NEUTROPHILS ABSOLUTE 5.3 10*3/uL Normal 1.8-7.5 [facility] Comment on above: Performed By: #### L [id number] ####Material Requisitioner: VELMA VALADEZ ([id number])[facility])[address] [place] [address] Neutrophils/100 WBC (Bld) 66.4 % Normal 38.0-82.0 [facility] Comment on above: Performed By: #### L [id number] ####Material Requisitioner: VELMA VALADEZ ([id number])[facility] ([facility])[address] [place] [address] NRBC 0.0 /100 WBCs Normal 0.0-2.0 [facility] Comment on above: Performed By: #### L [id number] ####Material Requisitioner: VELMA VALADEZ ([id number])[facility])[address] [place] [address] Platelet mean volume (Bld) [Entitic vol] 10.0 fL Normal 9.0-12.7 [facility] Comment on above: Performed By: #### L [id number] ####Material Requisitioner: VELMA VALADEZ ([id number])[facility] ([facility])[address] [place] [address] Platelets (Bld) [#/Vol] 266 10*3/uL Normal 140-440 [facility] Comment on above: Performed By: #### L [id number] ####Material Requisitioner: VELMA VALADEZ ([id number])[facility] ([facility])[address] [place] [address] RBC (Bld) [#/Vol] 4.21 10*6/uL Normal 3.80-5.20 [facility] Comment on above: Performed By: #### L [id number] ####Material Requisitioner: VELMA VALADEZ ([id number])[facility] ([facility])[address] [place] [address] WBC (Bld) [#/Vol] 8.1 10*3/uL Normal 3.6-10.7 [facility] Comment on above: Performed By: #### L [id number] ####Material Requisitioner: VELMA VALADEZ ([id number])[facility] ([facility])[address] [place] [address] Consulton 04-04-2024 Consult [facility] Consult [facility] ECG 12-LEADon 04-04-2024 ECG 12-LEAD IMPRESSION: Atrial fibrillation Borderline T abnormalities, inferior leads Compared to ECG 08/28/11 Sinus rhythm no longer noted Electronically Signed On 04-04-2024 03:48:37 EDT by Sourav Swenson [facility] ED Nursing Noteon 04-04-2024 ED Nursing Note Report to Delia Bond RN 04/04/24 6158 [facility] ED Nursing Note Multiple attempts ma sheri to call report to [facility] with phone number provided by machine operator cane cutter, but when phone number dialed RN only gets busy tone. Will try again. Shannon Bond RN 04/04/24 2560 [facility] ED Nursing Note [facility] at bedside to transport pt to [facility]. Paperwork with EMS Shannon Bond RN 04/04/24 0324 Normal [facility] IDNon 04-04-2024 IDN The patient is Moderately Stable - Low risk of patient condition declining or worsening The patient's goals for the shift include safety The clinical goals for the shift include therapeutic aptt Normal [facility] IDN Normal [facility] No Panel Informationon 04-04 Left Pop Rfx 1.1 s [facility] Acute extensive DVT in the right lower [...] popliteal vein. History of DVT in 2021 Pattern Drafter Details A george scale, color Doppler imaging, spectral Doppler analysis and B-flow ultrasound was performed. During the study 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 and transverse views were obtained. Pulsed wave doppler was performed. The exam was performed with the patient in the supine position. Overall the study quality was adequate. Study was technically difficult due to: bowel gas. CV CPACS Left MICHELLE 0.62 [facility] Left dorsalis pedis BP 78 mmHg [facility] Left posterior tibial 86 mmHg [facility] Right MICHELLE 0.55 [facility] Right arm BP 139 mmHg [facility] Right dorsalis pedis BP 65 mmHg [facility] Right posterior tibial 76 mmHg [facility] Right side findings: Resting [...] of RLE discovered just before PVR testing. Pattern Drafter Details A spectral Doppler analysis ultrasound was [...] On 04-04-2024 03:48:37 EDT by Sourav Swenson [employer] No Panel InformationOrdered By: Sourav Swenson on 04-04-2024 P [place] 0 degrees [employer] Work Phone: IL Interval 0 ms [employer] Work Phone: QRS [place] 40 degrees [employer] Work Phone: QRSD Interval 86 ms [employer] Work Phone: QT Interval 352 ms [facility] Work Phone: QTC Interval 411 ms [facility] [employer] Work Phone: T Wave [place] -3 degrees [employer] Work Phone: [employer] Work Phone: Progress Noteon 04-04-2024 Progress Note [facility] Progress Note [facility] Progress Note Normal [facility] Vital signsOrdered By: Cathy Swenson on 04-04-2024 Heart rate 82 /min bpm [facility] Work Phone: aPTT Coag (Bld) [Time]on aPTT Coag (PPP) [Time] 81.8 s High 20.0 - 30.5 s [facility] Interpretation and review of laboratory results Abnormal [facility] NOTE: The therapeuti c time for Heparin anticoagulation, based on Xa activity inhibition, is an APTT of 46-80 seconds. [facility] aPTT Coag (PPP) [Time] 81.4 s High 20.0 - 30.5 s [facility] Interpretation and review of laboratory results Abnormal [facility] NOTE: The therapeuti c time for Heparin anticoagulation, based on Xa activity inhibition, is an APTT of 46-80 seconds. [facility] aPTT Coag (Bld) [Time]Ordere d By: Devika Eisenberg on 04-04-2024 aPTT Coag (PPP) [Time] 132.2 s Critically high 20 .0 - 30.5 s [facility] Interpretation and review of laboratory results Abnormal [facility] NOTE: The therapeuti c time for Heparin anticoagulation, based on Xa activity inhibition, is an APTT of 46-80 seconds. [facility] APTTon 04-03-2024 aPTT Coag (Bld) [Time] 25.6 s Normal 20.0-30.5 [facility] Comment on above: Result Comment: ORDE R COMMENTS:NOTE: The therapeutic time for Heparin anticoagulation, based on Xa activity inhibition, is an APTT of 46-80 seconds. Performed By: #### L [id number] ####Material Requisitioner: MARYLOU MAY ([id number])INNA VELASQUEZKANU (SBHL[facility])[address] CBC (HEMOGRAM)on 04-03-2024 Erythrocyte distribution width (RBC) [Ratio] 14.4 % Normal 11.5-15.0 [facility] Comment on above: Performed By: #### L [id number] ####Material Requisitioner: MARYLOU MAY ([id number])[facility]PITAL[facility] VELASQUEZKANU (SBHLAB)[address] Hematocrit (Bld) [Volume fraction] 38.6 % Normal 35.0-47.0 [facility] Comment on above: Performed By: #### L [id number] ####Material Requisitioner: MARYLOU MAY ([id number])[facility] HOSPITALSimran BASTIAN (SBAB)[address] [place] [address] Hemoglobin (Bld) [Mass/Vol] 12.7 g/dL Normal 11.7-16.0 [facility] Comment on above: Performed By: #### L [id number] ####Material Requisitioner: MARYLOU MAY ([id number])[facility] HOSPITALSimran [facility] CENTERBoss[facility] (SBHLAB)[address] MCH (RBC) [Entitic mass] 30.4 pg Normal 26.0-34.0 [facility] Comment on above: Performed By: #### L [id number] ####Material Requisitioner: MARYLOU MAY ([id number])[facility] HOSPITALSimran VELASQUEZFOUR CORNERS REGIONAL HEALTH CENTERBossman (SBHLAB)[address] MCHC 32.9 % Normal 30.5-36.0 [facility] Comment on above: Performed By: #### L AB294 ####Material Requisitioner: MARYLOU MAY ([id number])[facility]ER HOSPITALSimran VELASQUEZFOUR CORNERS REGIONAL HEALTH CENTERBossman (SBHLAB)[address] [place] [address] MCV (RBC) [Entitic vol] 92.3 fL Normal 77.0-99.0 S [facility] Comment on above: Performed By: #### L AB294 ####Material Requisitioner: MARYLOU MAY ([id number])[facility]OLZER HOSPITALSimran VELASQUEZKANU (SBHLAB)[address] Platelet mean volume (Bld) [Entitic vol] 10.0 fL Normal 9.0-12.7 [facility] Comment on above: Performed By: #### L AB294 ####Material Requisitioner: MARYLOU MAY ([id number])HOLZER HOSPITALSimran [place] (SBHLAB)[address] Platelets (Bld) [#/Vol] 283 10*3/uL Normal 140-440 [facility] Comment on above: Performed By: #### L AB294 ####Material Requisitioner: MARYLOU MAY ([id number])HOLZER HOSPITALSimran [facility] MEDICAL CENTERBossman (SBHLAB)[address] RBC (Bld) [#/Vol] 4.18 10*6/uL Normal 3.80-5.20 [facility] Comment on above: Performed By: #### L AB294 ####Material Requisitioner: MARYLOU MAY ([id number])[facility]ER HOSPITALSimran BARBFOUR CORNERS REGIONAL HEALTH CENTERN (SBHLAB)[address] WBC (Bld) [#/Vol] 9.3 10*3/uL Normal 3.6-10.7 [facility] Comment on above: Performed By: #### L AB294 ####Material Requisitioner: MARYLOU MAY ([id number])[facility]ER HOSPITALA BARBFOUR CORNERS REGIONAL HEALTH CENTERN (SBHLAB)[address] CBC panel Auto (Bld)on 04-03 Erythrocyte distribution width (RBC) [Ratio] 14.4 % 11.5 - 15.0 % [facility] Hematocrit (Bld) [Volume fraction] 38.6 % 35.0 - 47.0 % [facility] Hemoglobin (Bld) [Mass/Vol] 12.7 g/dL 11.7 - 16.0 g/dL [facility] Interpretation and review of laboratory results Normal [facility] MCH (RBC) [Entitic mass] 30.4 pg 26.0 - 34.0 pg [facility] MCHC (RBC) [Mass/Vol] 32.9 % 30.5 - 36.0 % [facility] MCV (RBC) [Entitic vol] 92.3 fL 77.0 - 99.0 fL [facility] Platelet mean volume (Bld) [Entitic vol] 10.0 fL 9.0 - 12.7 fL [facility] Platelets (Bld) [#/Vol] 283 10*3/uL 140 - 440 10*3/uL [facility] RBC (Bld) [#/Vol] 4.18 10*6/uL 3.80 - 5.2 0 10*6/uL [facility] WBC (Bld) [#/Vol] 9.3 10*3/uL 3.6 - 10.7 10*3/uL [facility] COMPREHENSIVE METABOLIC PANE Gilberto 04-03-2024 Albumin [Mass/Vol] 4.3 g/dL Normal 3.5-5.0 [facility] Comment on above: Performed By: #### Weston DAWSON, [id number], LAB17 ####Material Requisitioner: MARYLOU MAY ([id number])[facility] ([facility])[address] ALP [Catalytic activity/Vol] 91 U/L Normal 38-126 [facility] Comment on above: Performed By: #### Weston DAWSON [id number], LAB17 ####Material Requisitioner: MARYLOU MAY ([id number])[facility] ([facility])[address] ALT [Catalytic activity/Vol] 10 U/L Normal 0-34 [facility] Comment on above: Performed By: #### L AB103, WSV610, LAB17 ####Material Requisitioner: MARYLOU MAY ([id number])[facility] ([facility]AREAB)[address] Anion gap [Moles/Vol] 9 mmol/L Normal 3-13 [facility] Comment on above: Performed By: #### L AB103, SLV459, LAB17 ####Material Requisitioner: MARYLOU MAY ([id number])H[facility]ZER HOSPITALA [place] (SBHLAB)[address] [place] [address] [place] AST [Catalytic activity/Vol] 19 U/L Normal 15-46 [facility] Comment on above: Performed By: #### L SAMIR, XBT910, LAB17 ####Material Requisitioner: MARYLOU MAY ([id number])[facility]ER HOSPITALA RONFOUR CORNERS REGIONAL HEALTH CENTERN (SBHLAB)[address] Bilirubin [Mass/Vol] 1.1 mg/dL Normal 0.2-1.3 [facility] Comment on above: Performed By: #### Weston DAWSON, QMP021, LAB17 ####Material Requisitioner: MARYLOU MAY ([id number])[facility] (SBHLAB)[address] Calcium [Mass/Vol] 9.3 mg/dL Normal 8.4-10.4 [facility] Comment on above: Performed By: #### Weston DAWSON, IXM300, LAB17 ####Material Requisitioner: MARYLOU MAY ([id number])[facility]ER HOSPITALA [facility]ERN (SBHLAB)[address] [place] [address] [place] Chloride [Moles/Vol] 107 mmol/L Normal 98-107 [facility] Comment on above: Performed By: #### Weston DAWSON, KHF028, LAB17 ####Material Requisitioner: MARYLOU MAY ([id number])[facility]ER HOSPITALA [place] (SBHLAB)[address] [place] [address] [place] CO2 [Moles/Vol] 20 mmol/L Low 22-30 [facility] Comment on above: Performed By: #### L SAMIR, HLR180, LAB17 ####Material Requisitioner: MARYLOU MAY ([id number])[facility]N (SBHLAB)[address] [place] [address] [place] Creatinine [Mass/Vol] 1.54 mg/dL High 0.52-1.04 [facility] Comment on above: Performed By: #### Weston DAWSON, LII600, LAB17 ####Material Requisitioner: MARYLOU MAY ([id number])[facility] (SBHLAB)[address] GLOMERULAR FILTRATION RATE ML/MIN/1.73 SQ M.PREDICTED 33.2 mL/min/1.73m*2 Low >60.0 [facility] Comment on above: Result Comment: Calc ulation based on the Chronic Kidney Disease Epidemiology Collaboration (CKD-EPI) equation refit without adjustment for race Performed By: #### Weston DAWSON, VLZ759, LAB17 ####Material Requisitioner: MARYLOU MAY ([id number])[facility] (SBAB)[address] [place] [address] Glucose [Mass/Vol] 115 mg/dL High 70-100 [facility] Comment on above: Performed By: #### Weston DAWSON, JTA669, LAB17 ####Material Requisitioner: MARYLOU MAY ([id number])[facility] (SBHLAB)[address] [place] [address] [place] Potassium [Moles/Vol] 5.7 mmol/L High 3.5-5.1 [facility] Comment on above: Performed By: #### Weston DAWSON, BLE133, LAB17 ####Material Requisitioner: MARYLOU MAY ([id number])[facility] (SBHLAB)[address] [place] [address] [place] Protein [Mass/Vol] 7.7 g/dL Normal 6.3-8.2 [facility] Comment on above: Performed By: #### Weston DAWSON, HOL156, LAB17 ####Material Requisitioner: MARYLOU MAY ([id number])[facility] (SBHLAB)[address] [place] [address] [place] Sodium [Moles/Vol] 135 mmol/L Normal 135-145 [facility] Comment on above: Performed By: #### Weston DAWSON, EOS031, LAB17 ####Material Requisitioner: MARYLOU MAY ([id number])[facility] (SBHLAB)[address] Urea nitrogen [Mass/Vol] 29 mg/dL High 7- [facility] Comment on above: Performed By: #### L AB103, KQT723, LAB17 ####Material Requisitioner: MARYLOU MAY ([id number])[facility] (SBHLAB)[address] HEAD WO IV CONTRASTon CT HEAD WO IV CONTRAST Normal [facility] CT Head WO contraston 2023 1. No acute finding. Chronic left cerebellar infarct.. Report Dictated on Electronically Signed By: Toño Tang MD Electronically Signed Date/Time: 04/03/2024 9:21 PM EDT [facility] Patient Name: MEL CARVER RD : [...] midline shift. No hydrocephalus. Left globe prosthesis. [facility] Toño Tang MD - 04/03/2024 Patient [...] Electronically Signed Date/Time: 04/03/2024 9:21 PM EDT [facility] Radiology Study observation (narrative) [facility] CT Head WO contrastOrdered B y: Toño Tang on 04-03-2024 [employer] Work Phone: CTA AORTA BL ILIOFEMORAL W W Oon 04-03-2024 CTA AORTA BL ILIOFEMORAL W WO Normal [facility] CTA Thoracic and Abdominal A zachary and Bilateral Runoff Vessels WO and W contrast Cheryl 04-03-2024 1. Severe lower extremity atherosclerotic disease. 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 2. 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 3. Severe diverticulosis. Report Dictated on Electronically Signed By: Toño Tang MD Electronically Signed Date/Time: 04/03/2024 9:36 PM EDT [facility] [employer] Patient Name: MEL CARVER RD : 1940 [facility]#: [id number] Exam Date/Time: 04/03/2024 21:14 Procedure: CTA AORTA [...] into the mid to distal lower leg. [facility] RADIOLOGY SYSTEM Toño Tang MD - 04/03/2024 [facility] 1940 [id number] Exam Date/Time: 04/03/2024 21:14 Procedure: CTA AORTA [...] Electronically Signed Date/Time: 04/03/2024 9:36 PM EDT [facility] Radiology Study observation (narrative) [facility] metabolic 1998 panelon 04-03-2024 Albumin [Mass/Vol] 4.3 g/dL 3.5 - 5.0 g/dL [facility] ALP [Catalytic activity/Vol] 91 U/L 38 - 126 U/L [facility] ALT [Catalytic activity/Vol] 10 U/L 0 - 34 U/L [facility] Anion gap [Moles/Vol] 9 mmol/L 3 - 13 mmol/L [facility] AST [Catalytic activity/Vol] 19 U/L 15 - 46 U/L [facility] Bilirubin [Mass/Vol] 1.1 mg/dL 0.2 - 1 .3 mg/dL [facility] Calcium [Mass/Vol] 9.3 mg/dL 8.4 - 10. 4 mg/dL [facility] Chloride [Moles/Vol] 107 mmol/L 98 - 10 7 mmol/L [facility] CO2 [Moles/Vol] 20 mmol/L Low 22 - 30 mmol/L [facility] Creatinine [Mass/Vol] 1.54 mg/dL High 0.52 - 1.04 mg/dL [facility] GFR/1.73 sq M.predicted (S/P/Bld) [Vol rate/Area] 33.2 mL/min Low - PINF [facility] Comment on above: Calculation based on the Chronic Kidney Disease Epidemiology Collaboration (CKD-EPI) equation refit without adjustment for race Glucose [Mass/Vol] 115 mg/dL High 70 - 100 mg/dL [facility] Interpretation and review of laboratory results Abnormal [facility] Potassium [Moles/Vol] 5.7 mmol/L High 3.5 - 5.1 mmol/L [facility] Protein [Mass/Vol] 7.7 g/dL 6.3 - 8.2 g/dL [facility] Sodium [Moles/Vol] 135 mmol/L 135 - 145 mmol/L [facility] Urea nitrogen [Mass/Vol] 29 mg/dL High 7 - 17 mg/dL [facility] ED Nursing Noteon 04-03-2024 ED Nursing Note Normal [facility] ED Provider Noteon ED Provider Note Normal [facility] Laboratory - Chemistry and C hemistry - challengeon 04-03-2024 Troponin I.cardiac [Mass/Vol] 0.014 ng/mL NINF - 0.034 ng/mL [facility] Magnesium [Mass/Vol] 2.3 mg/dL 1.6 - 2 .3 mg/dL [facility] Laboratory - Coagulationon 0 04-03-2024 aPTT Coag (PPP) [Time] 26.7 s 20.0 - 30.5 s [facility] INR Coag (PPP) [Relative time] 1.0 {INR} 0.9 - 1.1 [facility] Comment on above: Recommended Anticoag ulant Therapy: [...] 11.7 s 9.0 - 1 2.0 s [facility] MAGNESIUMon 04-03-2024 Magnesium [Mass/Vol] 2.3 mg/dL Normal 1.6-2.3 [facility] Comment on above: Performed By: #### L AB103, [id number], LAB17 ####Material Requisitioner: MARYLOU MAY ([id number])[facility] ROJELIO (SBAB)[address] [place] [address] Magnesium [Mass/Vol]on 04-03 Interpretation and review of laboratory results Normal [facility] No Panel Informationon 04-03 [facility] Interpretation and review of laboratory results Normal [facility] PROTIME AND APTTon aPTT Coag (Bld) [Time] 26.7 s Normal 20.0-30.5 [facility] Comment on above: Performed By: #### L [id number] ####Material Requisitioner: MARYLOU MAY ([id number])[facility] ([facility])[address] [place] [address] INR Coag (PPP) [Relative time] 1.0 {INR} Normal 0.9-1.1 [facility] Comment on above: Result Comment: Timothy [...] prevent Myocardial Infarction Performed By: #### L [id number] ####Material Requisitioner: MARYLOU MAY ([id number])[facility] ([facility])[address] [place] [address] PT Coag (PPP) [Time] 11.7 s Normal 9.0-12.0 [facility] Comment on above: Performed By: #### L [id number] ####Material Requisitioner: MARYLOU MAY ([id number])[facility] ([facility])[address] [place] [address] TROPONIN Ion 04-03-2024 Troponin I.cardiac [Mass/Vol] 0.014 ng/mL Normal <0.034 [facility] Comment on above: Result Comment: BUBBA Garcia COMMENTS:Patients with high levels of Biotin oral intake (ie >5 mg/day) may have falsely decreased Troponin levels. Performed By: #### L AB103, GIU693, LAB17 ####Material Requisitioner: MARYLOU MAY ([id number])[facility] (SBHLAB)[address] [place] [address] Troponin I.cardiac [Mass/Vol ]on 04-03-2024 Interpretation and review of laboratory results Normal [facility] Patients with high levels of Biotin oral intake (ie >5 mg/day) may have falsely decreased Troponin levels. [facility] aPTT Coag (Bld) [Time]on aPTT Coag (PPP) [Time] 25.6 s 20.0 - 30.5 s [facility] Interpretation and review of laboratory results Normal [facility] NOTE: The therapeuti c time for Heparin anticoagulation, based on Xa activity inhibition, is an APTT of 46-80 seconds. [facility] MR Lower leg - left WO [...] MD Electronically Signed Date/Time: 06/16/2023 8:10 AM [facility] RADIOLOGY SYSTEM Patient Name: MEL CARVER RD [...] and lateral ankle resulting from ORIF hardware. [facility] Dimas Woodward MD - 06/16/2023 Patient Name: MEL POP : 1940 [facility]#: [id number] Exam Date/Time: 06/15/2023 16:21 Procedure: MR TIBIA [...] Electronically Signed Date/Time: 06/16/2023 8:10 AM EST [employer] MR Lower leg - left WO and W contrast IVOrdered By: Dimas Woodward on 06-16-2023 [employer] Work Phone: MR Lower leg - left WO and W contrast Cheryl 06-15-2023 Radiology Study observation (narrative) [facility] Shannon alth No Panel Informationon 05-24 No evidence of venous thrombus in the left lower extremity. Report Dictated on Electronically Signed By: Yasmany Whyte MD Electronically Signed Date/Time: 05/24/2023 11:42 AM EST [facility] RADIOLOGY SYSTEM Patient [...] augmentation and normal response to Valsalva maneuver. [facility] Yasmany Whyte MD - 05/24/2023 Patient [...] Electronically Signed Date/Time: 05/24/2023 11:[address] [employer] [address] Neck W contrast Cheryl 08-2 5-2023 Patient Name: MEL CARVER RD : 1940 [...] Electronically Signed Date/Time: 03/11/2023 10:28 AM [facility] RADIOLOGY SYSTEM Efrain Yi [...] Electronically Signed Date/Time: 03/11/2023 10:[address] [employer] [address] Neck W contrast IVOrdered By: Efrain Yi on 03-11-2023 [employer] Work Phone: CT Neck W contrast Cheryl 02-16 Radiology Study observation (narrative) [facility] alth US Head and neck soft tissue on 02-24-2023 Indeterminate soft tissue nodules in the patients area of palpable concern in the left neck, which may represent enlarged left submandibular gland with obstructing sialolith and adjacent enlarged lymph node. Recommend further evaluation with contrast-enhanced neck CT. Report Dictated on Electronically Signed By: Ryan Mccollum MD Electronically Signed Date/Time: 02/24/2023 8:23 AM EDT [employer] Patient Name: EML CARVER RD [facility] 1940 [id number] Exam Date/Time: 02/22/2023 13:44 Procedure: US HEAD [...] measuring 1.8 x 1.6 x 1.4 cm. [employer] Ryan Mccollum MD - 02/24/2023 [facility] Name: [facility]EL POP [facility] 1940 [id number] Exam Date/Time: 02/22/2023 13:44 Procedure: US HEAD [...] Electronically Signed Date/Time: 02/24/2023 8:23 AM EDT [facility] US Head and neck soft tissue Ordered By: Ryan Mccollum on 02-24-2023 [facility] Work Phone: [phone] US Head and neck soft tissue on 02-22-2023 Radiology Study observation (narrative) [facility] CONSULT PROGon 06-29-2022 CONSULT PROG HNO ID: [id number] Author: Nemo Petty APRN.BRANCH OPERATIONS SPECIALIST Service: Wound/Ostomy Author Type: Nurse Practitioner Type: Consult Progress Note Filed: 06/29/2022 12:51 PM Note Text: WOUND CARE SERVICE PROGRESS DIRECTOR OF GLOBAL TALENT NOTE SERVICE DATE: 06/29/2022 SERVICE TIME: 10:20 TIME SPENT (minutes): 30 REASON FOR CONSULT: follow up wound care visit to reassess skin/wounds CHIEF COMPLAINT: right finger wound Subjective HISTORY OF PRESENT ILLNESS: Ms. Jose Alberto Castillo is a 81 year old female who is seen today with Delia Bruno, Wound/stem dryer maintainer, as a follow up wound care visit [...] Wound Image Site Assessment Red;Intact Allie-Wound Assessment [place] Drainage Amount None Treatments Protective Barrier Ointment Dressing Foam- Adhesive Active Orders Date Order Priority Status Authorizing Provider 06/28/22 1423 zinc oxide 20 % ointment Active Iwona Chu DO 06/21/22 1248 DRESSING CARE (SPECIFY) ([place]) Routine Active Fidel Carmen APRN.BRANCH OPERATIONS SPECIALIST - Specify:: Apply allevyn foam to coccyx, peel down every shift to assess skin and to apply zinc oxide, change every 3 days or if soiled. 06/21/22 1248 zinc oxide 20 % Active Fidel Carmen APRN.SHAMIKA Wound 06/16/22 Incision Knee Left;Posterior (Active) Assessments 06/29/2022 10:27 AM Wound Image Site Assessment Dry;Intact Allie-Wound Assessment Intact Closure Sutures Drainage Amount None Treatments Open to Air No Linked orders to display Wound 06/21/22 0948 Atypical Wound Finger (Comment which one) Right (Active) Assessments 06/29/2022 10:23 AM Wound Image Site Assessment Red;Seatac Allie-Wound Assessment Intact Wound Length (cm) 2 cm Wound Width (cm) 2.5 cm Wound Surface Area (cm2) 5 cm2 Wound Depth (cm) 0.1 cm Wound Volume (cm3) 0.5 (more content not included)... Normal [facility] NUTRITIONon 06-29-2022 NUTRITION HNO ID: [id number] Author: Iwona Pelayo RD Service: Nutrition Therapy Author Type: Registered Dietitian Type: Nutrition Filed: 06/29/2022 1:38 PM Note Text: NUTRITION THERAPY PROGRESS NOTE SERVICE DATE: 06/29/2022 SERVICE TIME: 13:30 Nutrition Assessment: Recommended Malnutrition Diagnosis: No Malnutrition Identified (06/23/22 1109 : Parul Mcallister RD) Estimated kilocalorie needs: 2943-1204 Calorie Calculation Method: 25-30 kcals/kg Estimated protein [...] 2022 TIME: 10:17 AM Normal [facility] PT EDon 06-29-2022 PT ED HNO ID: [id number] Author: Joana Tolbert RPh Service: Pharmacy Author [...] Outcomes not met: N/A Joana Tolbert [facility] 06-28-2022 [facility] HNO ID: [id number] Author: Iwona Chu DO Service: Hospital Medicine [...] Attending: Collette Rahman DO Primary Service: BLAS LAO ADSTEPHANE MY CONDITION AT DISCHARGE: Stable REASON I [...] micropuncture needle and serially upsized to a 5-Angolan sheath. A venogram was then performed, which [...] time, the sheath was upsized to an 8-Angolan sheath. An intravascular ultrasound was performed. This [...] (more content not included)... Normal [facility] NURSING PROGon 06-28-2022 NURSING PROG HNO ID: [id number] Author: John Castro RN Service: Nursing Author Type: Registered Nurse Type: Nursing Progress Note Filed: 06/28/2022 2:28 PM Note Text: Other: Ambulatory pulse ox per Dr. Chu SpO2 on Room air at rest: 91% SpO2 while ambulating on Room air: 83% SpO2 while ambulating on 2 liters of oxygen: 91% Normal [facility] Bacteria Spec Resp Culton Bacteria identified Respiratory culture Nom (Unsp spec) CULTURE, RESPIRATORY: Few Normal respiratory radha present ORGANISM ID: 1 Few Lactose fermenting gram negative rods Insignificant colony count. No further workup. GRAM STAIN: Rare Gram positive cocci Few Polymorphonuclear leukocytes Few Epithelial cells Abnormal [facility] Comment on above: Performed By: #### 3 2355-0 #### [facility] CLIA [id number] CONSULT PROGon 06-25-2022 CONSULT PROG HNO ID: [id number] Author: Cirilo Yip RPh Service: Pharmacy Author Type: Pharmacist Type: Consult Progress Note Filed: 06/25/2022 1:49 PM Note Text: PHARMACY ORAL ANTICOAGULATION PATIENT EDUCATION NOTE Oral anticoagulant: apixaban Indication: DVT/PE Patient New to medication: Yes LEARNERS Persons Present: Patient Primary Learner: Patient Supervisor Estimator And Drafter Present: No Patient educated on the followin. [...] 2022 TIME: 1:48 PM Normal [facility] Bacteria Spec Resp Culton Bacteria identified Respiratory culture Nom (Unsp spec) CULTURE, RESPIRATORY: Moderate Normal respiratory radha present GRAM STAIN: Moderate Mixed oral radha Few Polymorphonuclear leukocytes Few Epithelial cells Abnormal [facility] Comment on above: Performed By: #### 3 2355-0 ####[facility]ATORYCLIA [id number] [place] [address] [place] Basic metabolic 2000 panelon 06-24-2022 Anion gap [Moles/Vol] 10 mmol/L Normal 9-18 [facility] Comment on above: Order Comment: Speci men Type: BLOOD SPECIMENOrdering Facility: [facility] Address: [address] [address] Performed By: #### 2 4321-2, 55892-8 ####[facility]ATORYCLIA [id number] [place] [address] [place] Calcium [Mass/Vol] 9.0 mg/dL Normal 8.5-10.2 [facility] Comment on above: Order Comment: Speci men Type: BLOOD SPECIMENOrdering Facility: [facility] Address: [address] [address] Performed By: #### 2 4321-2, 92009-4 ####[facility] LABORATORYCLIA [id number] [place] [address] [place] Chloride [Moles/Vol] 103 mmol/L Normal 97-105 [facility] Comment on above: Order Comment: Speci men Type: BLOOD SPECIMENOrdering Facility: [facility] Address: [address] [address] Performed By: #### 2 4321-2, 83249-6 ####[facility]ATORYCLIA [id number] [place] [address] [place] CO2 [Moles/Vol] 23 mmol/L Normal 22-30 [facility] Comment on above: Order Comment: Speci men Type: BLOOD SPECIMENOrdering Facility: [facility] Address: [address] [address] Performed By: #### 2 4321-2, 25854-8 ####[facility] [id number] [address] [place] Creatinine [Mass/Vol] 0.73 mg/dL Normal 0.58-0.96 [facility] Comment on above: Order Comment: Rhina mason Type: BLOOD SPECIMENOrdering Facility: [facility] Address: [address] [place] [address] Performed By: #### 2 4321-2, 27872-7 ####[facility] [id number] [address] ESTIMATED GLOMERULAR FILTRATION RATE 82 mL/min/1.73m??? Normal >=60 [facility] Comment on above: Order Comment: Rhina mason Type: BLOOD SPECIMENOrdering Facility: [facility] Address: [address] [place] [address] Result Comment: Isa mated Glomerular Filtration Rate [...] actual GFR. Performed By: #### 2 4321-2, 95346-6 ####[facility]ENTERIA [id number] [address] [place] Glucose [Mass/Vol] 165 mg/dL High 74-99 [facility] Comment on above: Order Comment: Rhina mason Type: BLOOD SPECIMENOrdering Facility: [facility] Address: [address] [place] [address] Result Comment: The [place] Diabetes Association (ADA) provides guidance for cutoff [...] Standards of Medical Care in Diabetes 2016, [place] [employer] Association. Diabetes Care. 2016.39(Suppl 1). Performed By: #### 2 4321-2, 53079-0 ####[facility]ATORYCLIA [id number] [address] STATES OF [facility] Potassium [Moles/Vol] 5.0 mmol/L Normal 3.7-5.1 [facility] Comment on above: Order Comment: Speci men Type: BLOOD SPECIMENOrdering Facility: [facility] Address: [address] [address] Performed By: #### 2 4321-2, 34512-8 ####[facility]ATORYCLIA [id number] [address] STATES [facility] Sodium [Moles/Vol] 136 mmol/L Normal 136-144 [facility] Comment on above: Order Comment: Samiri isabella Type: BLOOD SPECIMENOrdering Facility: [facility] Address: [address] [address] Performed By: #### 2 4321-2, 47424-9 ####[facility] LABORATORYCLIA [id number] [address] Urea nitrogen [Mass/Vol] 14 mg/dL Normal 7-21 [facility] Comment on above: Order Comment: Samiri men Type: BLOOD SPECIMENOrdering Facility: [facility] Address: [address] [address] Performed By: #### 2 4321-2, 35293-3 ####[facility] LABORATORYCLIA [id number] [address] CBC panel Auto (Bld)on 06-24 Erythrocyte distribution width (RBC) [Ratio] 17.0 % High 11.5-15.0 [facility] Comment on above: Order Comment: Speci men Type: BLOOD SPECIMENOrdering Facility: [facility] Address: [address] [address] Performed By: #### 5 8410-2 ####[facility] LABORATORYCLIA [id number] [address] Hematocrit (Bld) [Volume fraction] 27.2 % Low 36.0-46.0 [facility] Comment on above: Order Comment: Speci men Type: BLOOD SPECIMENOrdering Facility: [facility] Address: [address] [place] [address] Performed By: #### 5 8410-2 ####[facility] LABORATORYCLIA [id number] [address] OF [facility] Hemoglobin (Bld) [Mass/Vol] 8.9 g/dL Low 11.5-15.5 [facility] Comment on above: Order Comment: Speci men Type: BLOOD SPECIMENOrdering Facility: [facility] Address: [address] [place] [address] Performed By: #### 5 8410-2 ####[facility] LABORATORYCLIA [id number] [address] MCH (RBC) [Entitic mass] 30.9 pg Normal 26.0-34.0 [facility] Comment on above: Order Comment: Speci men Type: BLOOD SPECIMENOrdering Facility: [facility] Address: [address] [place] [address] Performed By: #### 5 8410-2 ####[facility] LABORATORYCLIA [id number] [address] [place] MCHC (RBC) [Mass/Vol] 32.7 g/dL Normal 30.5-36.0 [facility] Comment on above: Order Comment: Speci men Type: BLOOD SPECIMENOrdering Facility: [facility] Address: [address] [place] [address] Performed By: #### 5 8410-2 ####[facility] LABORATORYCLIA [id number] [address] [place] MCV (RBC) [Entitic vol] 94.4 fL Normal 80.0-100.0 [facility] Comment on above: Order Comment: Speci men Type: BLOOD SPECIMENOrdering Facility: [facility] Address: [address] [place] [address] Performed By: #### 5 8410-2 ####[facility] LABORATORYCLIA [id number] [address] [place] Nucleated RBC (Bld) [#/Vol] 0.03 10*3/uL High <0.01 [facility] Comment on above: Order Comment: Speci men Type: BLOOD SPECIMENOrdering Facility: [facility] Address: [address] [place] [address] Performed By: #### 5 8410-2 ####[facility] LABORATORYCLIA [id number] [address] [place] Platelet mean volume (Bld) [Entitic vol] 9.8 fL Normal 9.0-12.7 [facility] Comment on above: Order Comment: Speci men Type: BLOOD SPECIMENOrdering Facility: [facility] Address: [address] [place] [address] Performed By: #### 5 8410-2 ####[facility] LABORATORYCLIA [id number] [address] [place] Platelets (Bld) [#/Vol] 241 10*3/uL Normal 150-400 [facility] Comment on above: Order Comment: Speci men Type: BLOOD SPECIMENOrdering Facility: [facility] Address: [address] [address] Performed By: #### 5 8410-2 ####[facility] LABORATORYCLIA [id number] [place] [address] [place] RBC (Bld) [#/Vol] 2.88 10*6/uL Low 3.90-5.20 [facility] Comment on above: Order Comment: Speci men Type: BLOOD SPECIMENOrdering Facility: [facility] Address: [address] [place] [address] Performed By: #### 5 8410-2 ####[facility] LABORATORYCLIA [id number] [address] OF [facility] WBC (Bld) [#/Vol] 6.37 10*3/uL Normal 3.70-11.00 [facility] Comment on above: Order Comment: Speci men Type: BLOOD SPECIMENOrdering Facility: [facility] Address: [address] [place] [address] Performed By: #### 5 8410-2 ####[facility] LABORATORYCLIA [id number] [address] NT-proBNP SerPl-mCncon 06-24 Natriuretic peptide.B prohormone N-Terminal [Mass/Vol] 2971 pg/mL High <450 [facility] Comment on above: Order Comment: Speci men Type: BLOOD SPECIMENOrdering Facility: [facility] Address: [address] [place] [address] Performed By: #### 2 4321-2, 48037-4 ####[facility] LABORATORYCLIA [id number] [address] aPTT PPPon 06-24-2022 aPTT Coag (PPP) [Time] 64.2 s High 23.0-32.4 [facility] Comment on above: Order Comment: Speci men Type: BLOOD SPECIMEN [facility] Address: [address] [place] [address] Performed By: #### T SCR #### [facility] CLIA [id number] [address] aPTT Coag (PPP) [Time] 45.8 s High 23.0-32.4 [facility] Comment on above: Order Comment: Speci men Type: BLOOD SPECIMENOrdering Facility: [facility] Address: [address] [place] [address] Performed By: #### 3 2355-0 #### [facility] CLIA [id number] [address] aPTT Coag (PPP) [Time] 116.8 s High 28.5-34.0 [facility] Comment on above: Order Comment: Specrobson mason Type: BLOOD SPECIMENOrdering Facility: [facility] Address: [address] [address] Performed By: #### 1 4979-9 ####[facility] LABORATORYCLIA [id number] [address] [place] ALLIED HEALTHon 06-23-2022 ALLIED HEALTH HNO ID: [id number] Author: Mikel Coronado RT(R) Service: Radiology Author [...] 23, 2022 9:41 PM Normal [facility] CBC panel Auto (Bld)on 06-23 Erythrocyte distribution width (RBC) [Ratio] 16.6 % High 11.5-15.0 [facility] Comment on above: Order Comment: Rhina mason Type: BLOOD SPECIMENOrdering Facility: [facility] Address: [address] [address] Performed By: #### 5 8410-2 ####[facility] LABORATORYCLIA [id number] [address] OF [facility] Hematocrit (Bld) [Volume fraction] 29.6 % Low 36.0-46.0 [facility] Comment on above: Order Comment: Speci men Type: BLOOD SPECIMENOrdering Facility: [facility] Address: [address] [place] [address] Performed By: #### 5 8410-2 ####[facility] LABORATORYCLIA [id number] [address] STATES OF [facility] Hemoglobin (Bld) [Mass/Vol] 9.5 g/dL Low 11.5-15.5 [facility] Comment on above: Order Comment: Speci men Type: BLOOD SPECIMENOrdering Facility: [facility] Address: [address] [place] [address] Performed By: #### 5 8410-2 ####[facility] LABORATORYCLIA [id number] [address] STATES OF [facility] MCH (RBC) [Entitic mass] 30.4 pg Normal 26.0-34.0 [facility] Comment on above: Order Comment: Speci men Type: BLOOD SPECIMENOrdering Facility: [facility] Address: [address] [place] [address] Performed By: #### 5 8410-2 ####[facility] LABORATORYCLIA [id number] [address] MCHC (RBC) [Mass/Vol] 32.1 g/dL Normal 30.5-36.0 [facility] Comment on above: Order Comment: Speci men Type: BLOOD SPECIMENOrdering Facility: [facility] Address: [address] [place] [address] Performed By: #### 5 8410-2 ####[facility] LABORATORYCLIA [id number] [address] [place] MCV (RBC) [Entitic vol] 94.6 fL Normal 80.0-100.0 [facility] Comment on above: Order Comment: Speci men Type: BLOOD SPECIMENOrdering Facility: [facility] Address: [address] [place] [address] Performed By: #### 5 8410-2 ####[facility] LABORATORYCLIA [id number] [place] [address] [place] Nucleated RBC (Bld) [#/Vol] 0.07 10*3/uL High <0.01 [facility] Comment on above: Order Comment: Speci men Type: BLOOD SPECIMENOrdering Facility: [facility] Address: [address] [place] [address] Performed By: #### 5 8410-2 ####[facility] LABORATORYCLIA [id number] [place] [address] [place] Platelet mean volume (Bld) [Entitic vol] 9.9 fL Normal 9.0-12.7 [facility] Comment on above: Order Comment: Speci men Type: BLOOD SPECIMENOrdering Facility: [facility] Address: [address] [place] [address] Performed By: #### 5 8410-2 ####[facility] LABORATORYCLIA [id number] [address] [place] Platelets (Bld) [#/Vol] 241 10*3/uL Normal 150-400 [facility] Comment on above: Order Comment: Speci men Type: BLOOD SPECIMENOrdering Facility: [facility] Address: [address] [place] [address] Performed By: #### 5 8410-2 ####[facility] LABORATORYCLIA [id number] [place] [address] [place] RBC (Bld) [#/Vol] 3.13 10*6/uL Low 3.90-5.20 [facility] Comment on above: Order Comment: Speci men Type: BLOOD SPECIMENOrdering Facility: [facility] Address: [address] [place] [address] Performed By: #### 5 8410-2 ####[facility] LABORATORYCLIA [id number] [address] [place] WBC (Bld) [#/Vol] 6.86 10*3/uL Normal 3.70-11.00 [facility] Comment on above: Order Comment: Speci men Type: BLOOD SPECIMENOrdering Facility: [facility] Address: [place] [address] Performed By: #### 5 8410-2 ####[facility] LABORATORYCLIA [id number] [place] [address] [place] [facility] NUTRITIONon 06-23-2022 NUTRITION HNO ID: [id number] Author: Parul Mcallister RD Service: Nutrition Therapy Author Type: Registered Dietitian Type: Nutrition Filed: 06/23/2022 2:28 PM Note Text: NUTRITION THERAPY INITIAL ASSESSMENT SERVICE DATE: 06/23/2022 SERVICE TIME: 11:09 AM Nutrition Assessment: Recommended Malnutrition Diagnosis: No Malnutrition Identified Nutrition Diagnosis: Problem: Suboptimal protein/energy intake Related to: Inability to consume sufficient nutrients As evidenced by: Patient/family self-report;Intake records Estimated kilocalorie needs: 7160-8038 Calorie Calculation Method: 25-30 kcals/kg Estimated protein [...] 2022 TIME: 11:09 AM Normal [facility] XR CHEST 2V FRONTAL/LATon XR CHEST [...] sites of pneumonia. Small bilateral pleural effusions. Assistant Plant Controller: PSCB Transcribe Date/Time: Jun 24 2022 6:34A Dictated by : DI MINER MD This examination was interpreted and the report reviewed and electronically signed by: DI MINER MD on Jun 24 2022 6:36AM EST [id number] Normal [facility] aPTT PPPon 06-23-2022 aPTT Coag (PPP) [Time] 46.7 s High 23.0-32.4 [facility] Comment on above: Order Comment: Speci men Type: BLOOD SPECIMENOrdering Facility: [facility] Address: [address] [place] [address] Performed By: #### 1 4979-9 ####[facility] LABORATORYCLIA [id number] [address] aPTT Coag (PPP) [Time] 53.8 s High 23.0-32.4 [facility] Comment on above: Order Comment: Speci men Type: BLOOD SPECIMENOrdering Facility: [facility] Address: [address] [place] [address] Performed By: #### 1 4979-9 ####[facility] LABORATORYCLIA [id number] [address] aPTT Coag (PPP) [Time] 114.5 s High 23.0-32.4 [facility] Comment on above: Order Comment: Speci men Type: BLOOD SPECIMEN [facility] Address: [address] [place] [address] Performed By: #### T SCR #### [facility] CLIA [id number] [address] CBC W Auto Differential pane l (Bld)on 06-22-2022 Basophils (Bld) [#/Vol] 0.03 10*3/uL Normal <0.11 [facility] Comment on above: Order Comment: Speci men Type: BLOOD SPECIMENOrdering Facility: [facility] Address: [address] [place] [address] Result Comment: Diff erential confirmed by visual scan of peripheral blood smear slide Performed By: #### 5 7021-8 ####[facility] LABORATORYCLIA [id number] [address] Basophils/100 WBC (Bld) 0.5 % Normal [facility] Comment on above: Order Comment: Speci men Type: BLOOD SPECIMENOrdering Facility: [facility] Address: [address] [place] [address] Performed By: #### 5 7021-8 ####[facility] LABORATORYCLIA [id number] [address] Differential cell count method Nom (Bld) Auto Normal [facility] Comment on above: Order Comment: Speci men Type: BLOOD SPECIMENOrdering Facility: [facility] Address: [address] [place] [address] Performed By: #### 5 7021-8 ####[facility] LABORATORYCLIA [id number] [address] Eosinophils (Bld) [#/Vol] 10*3/uL Normal <0.46 [facility] Comment on above: Order Comment: Speci men Type: BLOOD SPECIMENOrdering Facility: [facility] Address: [address] [place] [address] Performed By: #### 5 7021-8 ####[facility] LABORATORYCLIA [id number] [address] Eosinophils/100 WBC (Bld) 0.0 % Normal [facility] Comment on above: Order Comment: Speci men Type: BLOOD SPECIMENOrdering Facility: [facility] Address: [address] [place] [address] Performed By: #### 5 7021-8 ####[facility] LABORATORYCLIA [id number] [address] Erythrocyte distribution width (RBC) [Ratio] 16.2 % High 11.5-15.0 [facility] Comment on above: Order Comment: Speci men Type: BLOOD SPECIMENOrdering Facility: [facility] Address: [address] [place] [address] Performed By: #### 5 7021-8 ####[facility] LABORATORYCLIA [id number] [address] [place] Hematocrit (Bld) [Volume fraction] 25.1 % Low 36.0-46.0 [facility] Comment on above: Order Comment: Speci men Type: BLOOD SPECIMENOrdering Facility: [facility] Address: [address] [place] [address] Performed By: #### 5 7021-8 ####[facility] LABORATORYCLIA [id number] [address] [place] Hemoglobin (Bld) [Mass/Vol] 8.4 g/dL Low 11.5-15.5 [facility] Comment on above: Order Comment: Speci men Type: BLOOD SPECIMENOrdering Facility: [facility] Address: [address] [place] [address] Performed By: #### 5 7021-8 ####[facility] LABORATORYCLIA [id number] [address] [place] Immature granulocytes (Bld) [#/Vol] 0.60 10*3/uL High <0.10 [facility] Comment on above: Order Comment: Speci men Type: BLOOD SPECIMENOrdering Facility: [facility] Address: [address] [place] [address] Performed By: #### 5 7021-8 ####[facility] LABORATORYCLIA [id number] [address] [place] Immature granulocytes/100 WBC (Bld) 10.3 % Normal [facility] Comment on above: Order Comment: Speci men Type: BLOOD SPECIMENOrdering Facility: [facility] Address: [address] [place] [address] Performed By: #### 5 7021-8 ####[facility] LABORATORYCLIA [id number] [place] [address] [place] Lymphocytes (Bld) [#/Vol] 1.38 10*3/uL Normal 1.00-4.00 [facility] Comment on above: Order Comment: Speci men Type: BLOOD SPECIMENOrdering Facility: [facility] Address: [address] [place] [address] Performed By: #### 5 7021-8 ####[facility] LABORATORYCLIA [id number] [address] Lymphocytes/100 WBC (Bld) 23.7 % Normal [facility] Comment on above: Order Comment: Speci men Type: BLOOD SPECIMENOrdering Facility: [facility] Address: [address] [place] [address] Performed By: #### 5 7021-8 ####[facility] LABORATORYCLIA [id number] [address] OF [facility] MCH (RBC) [Entitic mass] 31.2 pg Normal 26.0-34.0 [facility] Comment on above: Order Comment: Speci men Type: BLOOD SPECIMENOrdering Facility: [facility] Address: [address] [place] [address] Performed By: #### 5 7021-8 ####[facility] LABORATORYCLIA [id number] [address] [place] MCHC (RBC) [Mass/Vol] 33.5 g/dL Normal 30.5-36.0 [facility] Comment on above: Order Comment: Speci men Type: BLOOD SPECIMENOrdering Facility: [facility] Address: [address] [place] [address] Performed By: #### 5 7021-8 ####[facility] LABORATORYCLIA [id number] [address] [place] MCV (RBC) [Entitic vol] 93.3 fL Normal 80.0-100.0 [facility] Comment on above: Order Comment: Speci men Type: BLOOD SPECIMENOrdering Facility: [facility] Address: [address] [place] [address] Performed By: #### 5 7021-8 ####[facility] LABORATORYCLIA [id number] [address] Monocytes (Bld) [#/Vol] 0.50 10*3/uL Normal <0.87 [facility] Comment on above: Order Comment: Speci men Type: BLOOD SPECIMENOrdering Facility: [facility] Address: [address] [address] Performed By: #### 5 7021-8 ####[facility] LABORATORYCLIA [id number] [address] [place] Monocytes/100 WBC (Bld) 8.6 % Normal [facility] Comment on above: Order Comment: Speci men Type: BLOOD SPECIMENOrdering Facility: [facility] Address: [address] [place] [address] Performed By: #### 5 7021-8 ####[facility] LABORATORYCLIA [id number] [place] [address] [place] Neutrophils (Bld) [#/Vol] 3.31 10*3/uL Normal 1.45-7.50 [facility] Comment on above: Order Comment: Speci men Type: BLOOD SPECIMENOrdering Facility: [facility] Address: [address] [place] [address] Performed By: #### 5 7021-8 ####[facility] LABORATORYCLIA [id number] [address] [place] Neutrophils/100 WBC (Bld) 56.9 % Normal [facility] Comment on above: Order Comment: Speci men Type: BLOOD SPECIMENOrdering Facility: [facility] Address: [address] [place] [address] Performed By: #### 5 7021-8 ####[facility] LABORATORYCLIA [id number] [place] [address] [place] Nucleated RBC (Bld) [#/Vol] 0.10 10*3/uL High <0.01 [facility] Comment on above: Order Comment: Speci men Type: BLOOD SPECIMENOrdering Facility: [facility] Address: [address] [place] [address] Performed By: #### 5 7021-8 ####[facility]ORATORYCLIA [id number] [place] [address] [place] Nucleated RBC/100 WBC (Bld) [Ratio] 1.7 /100 WBC Normal [facility] Comment on above: Order Comment: Speci men Type: BLOOD SPECIMENOrdering Facility: [facility] Address: [address] [address] Performed By: #### 5 7021-8 ####[facility] LABORATORYCLIA [id number] [address] [place] Platelet mean volume (Bld) [Entitic vol] 9.7 fL Normal 9.0-12.7 [facility] Comment on above: Order Comment: Speci men Type: BLOOD SPECIMENOrdering Facility: [facility] Address: [address] [address] Performed By: #### 5 7021-8 ####[facility] LABORATORYCLIA [id number] [place] [address] [place] Platelets (Bld) [#/Vol] 209 10*3/uL Normal 150-400 [facility] Comment on above: Order Comment: Speci men Type: BLOOD SPECIMENOrdering Facility: [facility] Address: [address] [address] Performed By: #### 5 7021-8 ####[facility] LABORATORYCLIA [id number] [place] [address] [place] RBC (Bld) [#/Vol] 2.69 10*6/uL Low 3.90-5.20 [facility] Comment on above: Order Comment: Speci men Type: BLOOD SPECIMENOrdering Facility: [facility] Address: [address] Performed By: #### 5 7021-8 ####[facility] LABORATORYCLIA [id number] [place] [address] [place] WBC (Bld) [#/Vol] 5.82 10*3/uL Normal 3.70-11.00 [facility] Comment on above: Order Comment: Speci men Type: BLOOD SPECIMENOrdering Facility: [facility] Address: [address] [place] [address] Performed By: #### 5 7021-8 ####[facility] LABORATORYCLIA [id number] [place] [address] [place] CONSULT PROGon 06-22-2022 CONSULT PROG HNO ID: [id number] Author: Eliza Martin APRN.PPA TEACHER Service: Gastroenterology Author Type: Nurse Specialist Type: [...] (more content not included)... Normal [facility] Comprehensive metabolic 2000 panelon 06-22-2022 Albumin [Mass/Vol] 2.4 g/dL Low 3.9-4.9 [facility] Comment on above: Order Comment: Specrobson men Type: BLOOD SPECIMENOrdering Facility: [facility] Address: [address] [address] Performed By: #### 2 4323-8 ####[facility] LABORATORYCLIA [id number] [place] [address] [place] ALP [Catalytic activity/Vol] 129 U/L High 34-123 [facility] Comment on above: Order Comment: Rhina men Type: BLOOD SPECIMENOrdering Facility: [facility] Address: [address] [address] Performed By: #### 2 4323-8 ####[facility] LABORATORYCLIA [id number] [place], [place] [address] [place] [address] OF [facility] ALT With P-5'-P [Catalytic activity/Vol] 21 U/L Normal 7-38 [facility] Comment on above: Order Comment: Speci men Type: BLOOD SPECIMENOrdering Facility: [facility] Address: [address] [place] [address] Performed By: #### 2 4323-8 ####[facility] LABORATORYCLIA [id number] [address] OF [facility] Anion gap [Moles/Vol] 10 mmol/L Normal 9-18 [facility] Comment on above: Order Comment: Speci men Type: BLOOD SPECIMENOrdering Facility: [facility] Address: [address] [place] [address] Performed By: #### 2 4323-8 ####[facility] LABORATORYCLIA [id number] [address] AST With P-5'-P [Catalytic activity/Vol] 19 U/L Normal 13-35 [facility] Comment on above: Order Comment: Speci men Type: BLOOD SPECIMENOrdering Facility: [facility] Address: [address] [place] [address] Performed By: #### 2 4323-8 ####[facility] LABORATORYCLIA [id number] [address] OF [facility] Bilirubin [Mass/Vol] 0.6 mg/dL Normal 0.2-1.3 [facility] Comment on above: Order Comment: Speci men Type: BLOOD SPECIMENOrdering Facility: [facility] Address: [address] [place] [address] Performed By: #### 2 4323-8 ####[facility] LABORATORYCLIA [id number] [address] [place] Calcium [Mass/Vol] 8.6 mg/dL Normal 8.5-10.2 [facility] Comment on above: Order Comment: Speci men Type: BLOOD SPECIMENOrdering Facility: [facility] Address: [address] [place] [address] Performed By: #### 2 4323-8 ####[facility] LABORATORYCLIA [id number] [address] [place] Chloride [Moles/Vol] 105 mmol/L Normal 97-105 [facility] Comment on above: Order Comment: Speci men Type: BLOOD SPECIMENOrdering Facility: [facility] Address: [address] [place] [address] Performed By: #### 2 4323-8 ####[facility]ORATORYCLIA [id number] [address] [place] CO2 [Moles/Vol] 21 mmol/L Low 22-30 [facility] Comment on above: Order Comment: Speci men Type: BLOOD SPECIMENOrdering Facility: [facility] Address: [address] [place] [address] Performed By: #### 2 4323-8 ####[facility]ORATORYCLIA [id number] [address] OF [facility] Creatinine [Mass/Vol] 0.88 mg/dL Normal 0.58-0.96 [facility] [facility] Comment on above: Order Comment: Speci men Type: BLOOD SPECIMENOrdering Facility: [facility] Address: [address] [place] [address] Performed By: #### 2 4323-8 ####[facility]ORYCLIA [id number] [address] ESTIMATED GLOMERULAR FILTRATION RATE 66 mL/min/1.73m??? Normal >=60 [facility] Comment on above: Order Comment: Speci men Type: BLOOD SPECIMENOrdering Facility: [facility] Address: [address] [place] [address] Result Comment: Isa mated Glomerular Filtration Rate [...] actual GFR. Performed By: #### 2 4323-8 ####[facility]IA [id number] [place] [address] [place] Glucose [Mass/Vol] 95 mg/dL Normal 74-99 [facility] Comment on above: Order Comment: Rhina mason Type: BLOOD SPECIMENOrdering Facility: [facility] Address: [address] [place] [address] Result Comment: The [place] Diabetes Association (ADA) provides guidance for cutoff [...] Standards of Medical Care in Diabetes 2016, [place] [employer]. Diabetes Care. 2016.39(Suppl 1). Performed By: #### 2 4323-8 ####[facility]IA [id number] [place] [address] [place] Potassium [Moles/Vol] 4.7 mmol/L Normal 3.7-5.1 [facility] Comment on above: Order Comment: Rhina mason Type: BLOOD SPECIMENOrdering Facility: [facility] Address: [address] [address] Performed By: #### 2 4323-8 ####[facility]ORYCLIA [id number] [place] [address] [place] Protein [Mass/Vol] 5.3 g/dL Low 6.3-8.0 [facility] Comment on above: Order Comment: Rhina mason Type: BLOOD SPECIMENOrdering Facility: [facility] Address: [address] [place] [address] Performed By: #### 2 4323-8 ####[facility]ORYCLIA [id number] [address] STATES [facility] Sodium [Moles/Vol] 136 mmol/L Normal 136-144 [facility] Comment on above: Order Comment: Rhina mason Type: BLOOD SPECIMENOrdering Facility: [facility] Address: [address] [place] [address] Performed By: #### 2 4323-8 ####[facility]ORYCLIA [id number] [address] [place] Urea nitrogen [Mass/Vol] 7 mg/dL Normal 7-21 [facility] Comment on above: Order Comment: Rhina mason Type: BLOOD SPECIMENOrdering Facility: [facility] Address: [address] [place] [address] Performed By: #### 2 4323-8 ####[facility]ORYCLIA [id number] [address] [place] H. pylori IgG IA Qlon 2021 H. PYLORI IGG, QUAL Negative Normal Negative [facility] Comment on above: Order Comment: Rhina mason Type: BLOOD SPECIMENOrdering Facility: [facility] Address: [address] [place] [address] Result Comment: Shakeel ot exclude H. pylori infection if the specimen collected 3-4 weeks after onset of symptoms. Performed By: #### 1 7859-0 ####[facility] LABCLIA [id number] [facility] [id number] [place] PT panel Coag (PPP)on 2021 INR Coag (PPP) [Relative time] {INR} Low 0.9-1.3 [facility] Comment on above: Order Comment: Rhina mason Type: BLOOD SPECIMEN [facility] Address: [address] [place] [address] Result Comment: Mayra min K Antagonist (VKA) Therapeutic Range: INR 2 to 3 (Target INR of 2.5) Note: For patients treated with VKA drugs, such as warfarin, the [place] [employer] 2012 Guideline recommends [...] JAC 2017, 70: 252-289 Performed By: #### T SCR #### [facility] CLIA [id number] [address] OF [facility] PT Coag (PPP) [Time] 9.9 s Normal 9.7-13.0 [facility] Comment on above: Order Comment: Speci men Type: BLOOD SPECIMEN [facility] Address: [address] [place], [place] [address] Performed By: #### T SCR #### [facility] CLIA [id number] [address] [place] THERAPY NTon 06-22-2022 THERAPY NT HNO ID: [id number] Author: MAMIE Mortensen/Weston Service: Occupational Therapy Author Type: Occupational Therapist Type: Therapy (PT/OT/Speech/Resp) Filed: 06/22/2022 11:27 AM Note Text: Occupational Therapy Evaluation SERVICE DATE: 06/22/2022 SERVICE TIME: 1037 to 1105 ROOM: [place] [address] Recommended Discharge Disposition: Subacute/SNF Recommended Discharge Disposition [...] time Occupational Factors Life Roles: Retired;Parent;Family Member;Friend;Pet Apns Identified Strengths: Good Support System Identified Barriers: [...] (more content not included)... Normal [facility] US ARTERIAL PVR LOWERon 12-0 US ARTERIAL PVR LOWER * * *Final Report* * * DATE OF EXAM: Jun 22 2022 7:43AM A2U 1107 - US ARTERIAL PVR LOWER / PROCEDURE REASON: Arterial embolism * * * * Physician Interpretation * * * * Non-Invasive Vascular Laboratory [facility] Lower Extremity Arterial Physiology Study Bilateral/Complete Date of service/time: 06/22/2022 7:12:00 AM [facility] Name: MEL CASTILLO Date of : [...] all veins 06/16/22. Dopplers study was done. CUT LACE MACHINE OPERATOR - Biphasic MANAGER ACQUISITION - Multiphasic - possible stenosis DP - Monophasic Cedar - Biphasic. Technologist: Azar Holcomb [facility] Ordering physician: DWAYNE ZAIDI Interpreting physician: Supriya Ponce MD Final (Updated) RP Assistant Plant Controller: IRENE Transcribe Date/Time: Jun 22 2022 7:12A Dictated by : SUPRIYA PONCE MD This examination was interpreted and the report reviewed and electronically signed by: SUPRIYA PONCE MD on Jun 24 2022 1:27PM EST [id number] Normal [facility] aPTT PPPon 06-22-2022 aPTT Coag (PPP) [Time] 43.0 s High 23.0-32.4 [facility] Comment on above: Order Comment: Speci men Type: BLOOD SPECIMENOrdering Facility: [facility] Address: [address] [place] [address] Performed By: #### 1 4979-9 ####[facility]ATORYCLIA [id number] [place] [address] [place] aPTT Coag (PPP) [Time] 25.6 s Normal 23.0-32.4 [facility] Comment on above: Order Comment: Speci men Type: BLOOD SPECIMEN [facility] Address: [place] [address] Performed By: #### T SCR #### [facility] CLIA [id number] [address] ANES POSTPROC EVALon 022 ANES POSTPROC EVAL HNO ID: [id number] Author: Olu Vasquez MD Service: Anesthesiology Author Type: Physician Type: Anesthesia Postprocedure Evaluation Filed: 06/21/2022 3:20 PM Note Text: POST ANESTHESIA EVALUATION NOTE : 1940 Procedure Summary Date: 06/21/22 Room / Location: [facility] Anesthesia Start: 1134 Anesthesia Stop: 1158 [...] June 21, 2022 TIME: 3:19 PM CSN: [id number] Normal [facility] ANES PRE-OPon 06-21-2022 ANES PRE-OP HNO ID: [id number] Author: Olu Vasquez MD Service: Anesthesiology Author Type: Physician Type: Anesthesia Preprocedure Evaluation Filed: 06/21/2022 11:32 AM Note Text: ANESTHESIOLOGY DAY OF SURGERY NOTE : 1940 Procedure Information Date/Time: 06/21/22 1130 Scheduled providers: Sim Elizabeth MD Procedure: EGD DIAGNOSTIC Location: [place] [facility] Estimated body mass index is 26.94 [...] (more content not included)... Normal [facility] CONSULT PROGon 06-21-2022 CONSULT PROG HNO ID: [id number] Author: Fidel Carmen APRN.BRANCH OPERATIONS SPECIALIST Service: Wound/Ostomy Author Type: Nurse Practitioner Type: Consult Progress Note Filed: 06/21/2022 1:41 PM Note Text: WOUND CARE SERVICE CONSULT DIRECTOR OF GLOBAL TALENT NOTE SERVICE DATE: 06/21/2022 SERVICE TIME: 941 TIME SPENT (minutes): 30 REASON FOR CONSULT: MAD buttocks, atypical wound Right middle finger. CHIEF COMPLAINT: Right middle finger Subjective HISTORY OF PRESENT ILLNESS: Ms. Jose Alberto Castillo is a 81 year old female who is seen today with eDlia Bruno, Wound/stem dryer maintainer, and presented to hospital with complaints of [...] 06/21/2022 9:57 AM Wound Image Site Assessment [place];Red (small open area noted) Allie-Wound Assessment [place];Intact Drainage Amount None Odor None Treatments Cleansed;Protective Barrier Ointment Dressing Foam- Adhesive Dressing Changed Changed Dressing Status Clean;Dry;Intact Active Orders Date Order Priority Status Authorizing Provider 06/21/22 1248 DRESSING CARE (SPECIFY) ([place]) Routine Active Fidel Carmen APRN.BRANCH OPERATIONS SPECIALIST - Specify:: Apply allevyn foam to coccyx, peel down every shift to assess skin and to apply zinc oxide, change every 3 days or if soiled. 06/21/22 1248 zinc oxide 20 % Active Fidel Carmen APRN.BRANCH OPERATIONS SPECIALIST Wound 06/21/22 0948 Atypical Wound Finger (Comment which one) Right (Active) Assessments 06/21/2022 9:48 AM Wound Image Site Assessment [place];White (shiney) Allie-Wound Assessment Intact Shape irregular Drainage Description Sanguineous (intermittent, per pt.) Drainage Amount None Odor None Treatments Cleansed Dressing Xeroform;Gauze (more content not included)... Normal [facility] Hgb Bld-mCncon 06-21-2022 Hemoglobin (Bld) [Mass/Vol] 6.9 g/dL Low 11.5-15.5 [facility] Comment on above: Order Comment: Speci men Type: BLOOD SPECIMENOrdering Facility: [facility] Address: [address] [place] [address] Performed By: #### 3 2355-0 #### [facility] CLIA [id number] [address] [id number] [facility] OPERATIVE NOon 06-21-2022 OPERATIVE NO HNO ID: [id number] Author: Sim Elizabeth MD Service: Gastroenterology Author Type: Physician Type: Operative Report Filed: 06/21/2022 12:01 PM Note Text: OPERATIVE/PROCEDURE REPORT LOG ID: [id number] Surgery/Procedure Date: 06/21/2022 Incision/Procedure Start Time: 11:44 AM Incision Close/Procedure End Time: 11:49 AM Surgeon(s)/Proceduralis t(s) and Restoration Technician(s): Surgeon(s) and Role: * Sim Elizabeth MD [...] 21, 2022 TIME: 11:53 AM PAGER/CONTACT #: [phone] Normal [facility] THERAPY NTon 06-21-2022 THERAPY NT HNO ID: [id number] Author: Miranda Burroughs PT Service: Physical Therapy Author Type: Physical Therapist Type: Therapy (PT/OT/Speech/Resp) Filed: 06/21/2022 10:12 AM Note Text: Physical Therapy Evaluation SERVICE DATE: 06/21/2022 SERVICE TIME: 0832 to 0855 ROOM: [place] [address] Recommended Discharge Disposition: Subacute/SNF Recommended Discharge Disposition [...] gait and mobility-other Interventions Provided: Evaluation;Therapeutic Activity (67349) $ Evaluation-Moderate (66679) Billed Units: 1 unit Therapeutic Activity (96548) Treatment Minutes: 8 $ Therapeutic Activity (39454) Billed Units: 1 unit Educated pt on [...] (more content not included)... Normal [facility] TYPE + SCREENon 06-21-2022 ABO AB [facility] Comment on above: Order Comment: Speci men Type: BLOOD SPECIMEN [facility] Address: [address] [place] [address] Performed By: #### T SCR #### [facility] CLIA [id number] [address] [place] [address] HISTORICAL AB SCR STATUS Negative [facility] Comment on above: Order Comment: Speci men Type: BLOOD SPECIMEN [facility] Address: [address] [place] [address] Performed By: #### T SCR #### [facility] CLIA [id number] [address] [place] [address] Rh Nom (Bld) Positive [facility] Comment on above: Order Comment: Speci men Type: BLOOD SPECIMEN [facility] Address: [address] [place] [address] Performed By: #### T SCR #### [facility] CLIA [id number] [address] [place] [address] TYPE AND SCREEN EXPIRATION 06/24/2022 23:59 [facility] Comment on above: Order Comment: Speci men Type: BLOOD SPECIMEN [facility] Address: [address] [place] [address] Performed By: #### T SCR #### [facility] CLIA [id number] [address] ALLIED HEALTHon 06-20-2022 ALLIED HEALTH HNO ID: [id number] Author: RT Tamica(R) Service: Radiology Author Type: [...] DEPARTMENT: CT; Exam(s) Completed: Abdomen/Pelvis SIGNATURE: Alyssa Love, RT(R) PATIENT NAME: Mel Castillo DATE: June 20, 2022 TIME: 3:15 PM Normal [facility] Basic metabolic 2000 panelon 06-20-2022 Anion gap [Moles/Vol] 8 mmol/L Low 9-18 [facility] Comment on above: Order Comment: Speci men Type: BLOOD SPECIMENOrdering Facility: [facility] Address: [address] [place] [address] Performed By: #### 2 4321-2 ####[facility]ORATORYCLIA [id number] [place] [address] [place] Calcium [Mass/Vol] 8.5 mg/dL Normal 8.5-10.2 [facility] Comment on above: Order Comment: Speci men Type: BLOOD SPECIMENOrdering Facility: [facility] Address: [address] [place] [address] Performed By: #### 2 4321-2 ####[facility]ORYCLIA [id number] [place] [address] [place] Chloride [Moles/Vol] 106 mmol/L High 97-105 [facility] Comment on above: Order Comment: Speci men Type: BLOOD SPECIMENOrdering Facility: [facility] Address: [address] [place] [address] Performed By: #### 2 4321-2 ####[facility]ORYCLIA [id number] [place] [address] [place] CO2 [Moles/Vol] 22 mmol/L Normal 22-30 [facility] Comment on above: Order Comment: Speci men Type: BLOOD SPECIMENOrdering Facility: [facility] Address: [address] [place] [address] Performed By: #### 2 4321-2 ####[facility]ORYCLIA [id number] [place] [address] [place] Creatinine [Mass/Vol] 0.84 mg/dL Normal 0.58-0.96 [facility] Comment on above: Order Comment: Speci men Type: BLOOD SPECIMENOrdering Facility: [facility] Address: [address] [place] [address] Performed By: #### 2 4321-2 ####[facility] [id number] [place] [id number] [facility] [place] ESTIMATED GLOMERULAR FILTRATION RATE 69 mL/min/1.73m??? Normal >=60 [facility] Comment on above: Order Comment: Rhina mason Type: BLOOD SPECIMENOrdering Facility: [facility] Address: [address] [place] [address] Result Comment: Isa mated Glomerular Filtration Rate [...] actual GFR. Performed By: #### 2 4321-2 ####[facility] CENTERIA [id number] [place] [address] [place] Glucose [Mass/Vol] 92 mg/dL Normal 74-99 [facility] Comment on above: Order Comment: Rhina mason Type: BLOOD SPECIMENOrdering Facility: [facility] Address: [address] [place] [address] Result Comment: The [place] Diabetes Association (ADA) provides guidance for cutoff [...] Standards of Medical Care in Diabetes 2016, [place] [employer]. Diabetes Care. 2016.39(Suppl 1). Performed By: #### 2 4321-2 ####[facility]ORYCLIA [id number] [address] [place] Potassium [Moles/Vol] 4.7 mmol/L Normal 3.7-5.1 [facility] Comment on above: Order Comment: Speci men Type: BLOOD SPECIMENOrdering Facility: [facility] Address: [address] [place] [address] Performed By: #### 2 4321-2 ####[facility]ORYCLIA [id number] [address] [place] Sodium [Moles/Vol] 136 mmol/L Normal 136-144 [facility] Comment on above: Order Comment: Speci men Type: BLOOD SPECIMENOrdering Facility: [facility] Address: [address] [place] [address] Performed By: #### 2 4321-2 ####[facility]ATORYCLIA [id number] [address] STATES OF [facility] Urea nitrogen [Mass/Vol] 16 mg/dL Normal 7-21 [facility] Comment on above: Order Comment: Speci men Type: BLOOD SPECIMENOrdering Facility: [facility] Address: [address] [place] [address] Performed By: #### 2 4321-2 ####[facility]ORYCLIA [id number] [address] [place] CBC panel Auto (Bld)on 06-20 Erythrocyte distribution width (RBC) [Ratio] 15.9 % High 11.5-15.0 [facility] Comment on above: Order Comment: Speci men Type: BLOOD SPECIMENOrdering Facility: [facility] Address: [address] [place] [address] Performed By: #### 3 2355-0 #### [facility] CLIA [id number] [address] STATES OF [facility] Hematocrit (Bld) [Volume fraction] 23.9 % Low 36.0-46.0 [facility] Comment on above: Order Comment: Speci men Type: BLOOD SPECIMENOrdering Facility: [facility] Address: [address] [place] [address] Performed By: #### 3 2355-0 #### [facility] CLIA [id number] [address] Hemoglobin (Bld) [Mass/Vol] 7.8 g/dL Low 11.5-15.5 [facility] Comment on above: Order Comment: Speci men Type: BLOOD SPECIMENOrdering Facility: [facility] Address: [address] [address] Performed By: #### 3 5-0 #### [facility] CLIA [id number] [address] MCH (RBC) [Entitic mass] 30.7 pg Normal 26.0-34.0 [facility] Comment on above: Order Comment: Speci men Type: BLOOD SPECIMENOrdering Facility: [facility] Address: [address] [place] [address] Performed By: #### 3 2354-0 #### [facility] CLIA [id number] [address] MCHC (RBC) [Mass/Vol] 32.6 g/dL Normal 30.5-36.0 [facility] Comment on above: Order Comment: Speci men Type: BLOOD SPECIMENOrdering Facility: [facility] Address: [address] [place] [address] Performed By: #### 3 5-0 #### [facility] CLIA [id number] [address] MCV (RBC) [Entitic vol] 94.1 fL Normal 80.0-100.0 [facility] Comment on above: Order Comment: Speci men Type: BLOOD SPECIMENOrdering Facility: [facility] Address: [address] [place] [address] Performed By: #### 3 2355-0 #### [facility] CLIA [id number] [address] Nucleated RBC (Bld) [#/Vol] 0.09 10*3/uL High <0.01 [facility] Comment on above: Order Comment: Speci men Type: BLOOD SPECIMENOrdering Facility: [facility] Address: [address] [place] [address] Performed By: #### 3 2355-0 #### [facility] CLIA [id number] [address] [place] Platelet mean volume (Bld) [Entitic vol] 9.8 fL Normal 9.0-12.7 [facility] Comment on above: Order Comment: Speci men Type: BLOOD SPECIMENOrdering Facility: [facility] Address: [address] [place] [address] Performed By: #### 3 2355-0 #### [facility] CLIA [id number] [address] [place] Platelets (Bld) [#/Vol] 233 10*3/uL Normal 150-400 [facility] Comment on above: Order Comment: Speci men Type: BLOOD SPECIMENOrdering Facility: [facility] Address: [address] [address] Performed By: #### 3 2355-0 #### [facility] CLIA [id number] [address] [place] RBC (Bld) [#/Vol] 2.54 10*6/uL Low 3.90-5.20 [facility] Comment on above: Order Comment: Speci men Type: BLOOD SPECIMENOrdering Facility: [facility] Address: [address] [address] Performed By: #### 3 5-0 #### [facility] CLIA [id number] [address] [place] WBC (Bld) [#/Vol] 9.90 10*3/uL Normal 3.70-11.00 [facility] Comment on above: Order Comment: Speci men Type: BLOOD SPECIMENOrdering Facility: [facility] Address: [address] [place] [address] Performed By: #### 3 2355-0 #### [facility] CLIA [id number] [address] STATES OF [facility] CONSULTon 06-20-2022 CONSULT HNO ID: [id number] Author: Christine Edouard MD Service: ? Author [...] (more content not included)... Normal [facility] CT ABD/PEL W IVCONon 022 CT ABD/PEL W IVCON * * *Final Report* * * DATE OF EXAM: Jun 20 2022 2:57PM [facility] 0530 - CT ABD/PEL W IVCON [...] bilateral pleural effusions, larger on the right. Credit Processor (topogram) images: No additional findings. IMPRESSION: Acute sigmoid diverticulitis. No evidence of perforation or diverticular abscess. Consolidation and volume loss with bronchial wall thickening in both lower lobes and right middle lobe. Small bilateral pleural effusions, larger on the right. Diffuse subcutaneous edema of the left flank extending into the thigh. Bilateral renal cortical scarring and small cysts. Atherosclerotic arterial and aortic calcifications. Assistant Plant Controller: PSCYoan Transcribe Date/Time: Jun 20 2022 3:18P Dictated by : DI MAYES MD This examination was interpreted and the report reviewed and electronically signed by: DI MAYES MD on Jun 20 2022 3:24PM EST [id number] Normal [facility] Hgb Bld-mCncon 06-20-2022 Hemoglobin (Bld) [Mass/Vol] 7.0 g/dL Low 11.5-15.5 [facility] Comment on above: Order Comment: Speci men Type: BLOOD SPECIMEN [facility] Address: [address] [place] [phone] Performed By: #### T SCR #### [facility] CLIA [id number] 1 [place] [address] [place] ALLIED HEALTHon 06-19-2022 ALLIED HEALTH HNO ID: [id number] Author: Parul Ryan RN Service: Infection Prevention Author Type: ? Type: Allied Health Filed: 06/19/2022 5:49 PM Note Text: INFECTION PREVENTION NOTE Admission Date: 06/16/2022 Patient meets ?COVID Resolved? criteria and isolation has been discontinued as per [facility] guidance. SIGNATURE: Parul Ryan RN PATIENT NAME: Mel Castillo DATE: June 19, 2022 TIME: 5:49 PM PAGER/CONTACT #: Infection Prevention, [phone] Infection Prevention after hours/weekend pager: [phone] Normal [facility] Basic metabolic 2000 panelon 06-19-2022 Anion gap [Moles/Vol] 5 mmol/L Low 9-18 [facility] Comment on above: Order Comment: Speci men Type: BLOOD SPECIMENOrdering Facility: [facility] Address: [address] [place] [address] Performed By: #### 3 2355-0 #### [facility] CLIA [id number] [address] [place] Calcium [Mass/Vol] 8.1 mg/dL Low 8.5-10.2 [facility] Comment on above: Order Comment: Speci men Type: BLOOD SPECIMENOrdering Facility: [facility] Address: [address] [place] [address] Performed By: #### 3 2355-0 #### [facility] CLIA [id number] 1 [place] [address] [place] Chloride [Moles/Vol] 105 mmol/L Normal 97-105 [facility] Comment on above: Order Comment: Speci men Type: BLOOD SPECIMENOrdering Facility: [facility] Address: [address] [place] [address] Performed By: #### 3 2355-0 #### [facility] CLIA [id number] 1 [place] [address] [place] CO2 [Moles/Vol] 23 mmol/L Normal 22-30 [facility] Comment on above: Order Comment: Speci men Type: BLOOD SPECIMENOrdering Facility: [facility] Address: [address] [address] Performed By: #### 3 2355-0 #### [facility] CLIA [id number] [address] OF [facility] Creatinine [Mass/Vol] 0.94 mg/dL Normal 0.58-0.96 [facility] Comment on above: Order Comment: Speci men Type: BLOOD SPECIMENOrdering Facility: [facility] Address: [address] [address] Performed By: #### 3 2355-0 #### [facility] CLIA [id number] [address] ESTIMATED GLOMERULAR FILTRATION RATE 61 mL/min/1.73m??? Normal >=60 [facility] Comment on above: Order Comment: Speci men Type: BLOOD SPECIMENOrdering Facility: [facility] Address: [address] [place] [address] Result Comment: Isa mated Glomerular Filtration Rate [...] GFR. Performed By: #### 3 2355-0 #### [facility] CLIA [id number] [address] OF [facility] Glucose [Mass/Vol] 115 mg/dL High 74-99 [facility] Comment on above: Order Comment: Speci men Type: BLOOD SPECIMENOrdering Facility: [facility] Address: [address] [address] Result Comment: The [place] Diabetes Association (ADA) provides guidance for cutoff [...] Standards of Medical Care in Diabetes 2016, [place] [employer] Association. Diabetes Care. 2016.39(Suppl 1). Performed By: #### 3 2355-0 #### [facility] CLIA [id number] [address] [place] Potassium [Moles/Vol] 4.4 mmol/L Normal 3.7-5.1 [facility] Comment on above: Order Comment: Speci men Type: BLOOD SPECIMENOrdering Facility: [facility] Address: [address] [place] [address] Performed By: #### 3 2355-0 #### [facility] CLIA [id number] [address] STATES OF [facility] Sodium [Moles/Vol] 133 mmol/L Low 136-144 [facility] Comment on above: Order Comment: Samiri men Type: BLOOD SPECIMENOrdering Facility: [facility] Address: [address] [address] Performed By: #### 3 2355-0 #### [facility] CLIA [id number] [address] [place] Urea nitrogen [Mass/Vol] 22 mg/dL High 7-21 [facility] Comment on above: Order Comment: Speci men Type: BLOOD SPECIMENOrdering Facility: [facility] Address: [address] [address] Performed By: #### 3 2355-0 #### [facility] CLIA [id number] [address] [place] CBC panel Auto (Bld)on 06-19 Erythrocyte distribution width (RBC) [Ratio] 15.6 % High 11.5-15.0 [facility] Comment on above: Order Comment: Speci men Type: BLOOD SPECIMENOrdering Facility: [facility] Address: [address] [place] [address] Performed By: #### 5 8410-2 ####[facility]IA [id number] [address] OF [facility] Hematocrit (Bld) [Volume fraction] 24.0 % Low 36.0-46.0 [facility] Comment on above: Order Comment: Speci men Type: BLOOD SPECIMENOrdering Facility: [facility] Address: [address] [place] [address] Performed By: #### 5 8410-2 ####[facility]IA [id number] [address] OF [facility] Hemoglobin (Bld) [Mass/Vol] 7.6 g/dL Low 11.5-15.5 [facility] Comment on above: Order Comment: Speci men Type: BLOOD SPECIMENOrdering Facility: [facility] Address: [address] [place] [address] Performed By: #### 5 8410-2 ####[facility]IA [id number] [address] MCH (RBC) [Entitic mass] 29.9 pg Normal 26.0-34.0 [facility] Comment on above: Order Comment: Speci men Type: BLOOD SPECIMENOrdering Facility: [facility] Address: [address] [place] [address] Performed By: #### 5 8410-2 ####[facility]IA [id number] [address] [place] MCHC (RBC) [Mass/Vol] 31.7 g/dL Normal 30.5-36.0 [facility] Comment on above: Order Comment: Speci men Type: BLOOD SPECIMENOrdering Facility: [facility] Address: [address] [place] [address] Performed By: #### 5 8410-2 ####[facility]IA [id number] [address] [place] MCV (RBC) [Entitic vol] 94.5 fL Normal 80.0-100.0 [facility] Comment on above: Order Comment: Speci men Type: BLOOD SPECIMENOrdering Facility: [facility] Address: [address] [place] [address] Performed By: #### 5 8410-2 ####[facility]IA [id number] [address] [place] Nucleated RBC (Bld) [#/Vol] 0.04 10*3/uL High <0.01 [facility] Comment on above: Order Comment: Speci men Type: BLOOD SPECIMENOrdering Facility: [facility] Address: [address] [place] [address] Performed By: #### 5 8410-2 ####[facility]IA [id number] [address] Platelet mean volume (Bld) [Entitic vol] 10.0 fL Normal 9.0-12.7 [facility] Comment on above: Order Comment: Speci men Type: BLOOD SPECIMENOrdering Facility: [facility] Address: [address] [place] [address] Performed By: #### 5 8410-2 ####[facility]IA [id number] [address] [place] Platelets (Bld) [#/Vol] 219 10*3/uL Normal 150-400 [facility] Comment on above: Order Comment: Speci men Type: BLOOD SPECIMENOrdering Facility: [facility] Address: [address] [place] [address] Performed By: #### 5 8410-2 ####[facility]IA [id number] [address] [place] RBC (Bld) [#/Vol] 2.54 10*6/uL Low 3.90-5.20 [facility] Comment on above: Order Comment: Speci men Type: BLOOD SPECIMENOrdering Facility: [facility] Address: [address] [address] Performed By: #### 5 8410-2 ####[facility]IA [id number] [address] WBC (Bld) [#/Vol] 8.55 10*3/uL Normal 3.70-11.00 [facility] Comment on above: Order Comment: Speci men Type: BLOOD SPECIMENOrdering Facility: [facility] Address: [address] [place] [address] Performed By: #### 5 8410-2 ####[facility]IA [id number] [address] [place] Hemoccult Stl Ql IAon 2021 Lower GI hemoglobin IA Ql (Stl) Positive Abnormal Negative [facility] Comment on above: Order Comment: Speci men Type: BLOOD SPECIMEN [facility] Address: [address] [place] [address] Performed By: #### T SCR #### [facility] CLIA [id number] [address] [place] Hgb Bld-mCncon 06-19-2022 Hemoglobin (Bld) [Mass/Vol] 7.6 g/dL Low 11.5-15.5 [facility] Comment on above: Order Comment: Speci men Type: BLOOD SPECIMENOrdering Facility: [facility] Address: [address] [place] [address] Performed By: #### 7 18-7 ####[facility]IA [id number] [address] [place] Magnesium SerPl-mCncon 06-19 Magnesium [Mass/Vol] 1.9 mg/dL Normal 1.7-2.3 [facility] Comment on above: Order Comment: Speci men Type: BLOOD SPECIMENOrdering Facility: [facility] Address: [address] [place] [address] Performed By: #### 3 2355-0 #### [facility] CLIA [id number] [address] OF [facility] OPERATIVE NOon 06-19-2022 OPERATIVE NO HNO ID: [id number] Author: Frida Rodriguez MD Service: Vascular Surgery Author Type: Physician Type: Operative Report Filed: 06/19/2022 2:59 PM Note Text: [facility] - Operative Report MEL GUADARRAMA : 1940 AGE: 81. SEX: F PATIENT TYPE: I HOSP SVC: ICU LOCATION: [facility] ATTENDING PHYSICIAN: DWAYNE ZAIDI CSN NUMBER: [id number] DATE OF SURGERY/PROCEDURE: 06/16/2022 INCISION/PROCEDURE START TIME: 5:01 PM INCISION CLOSE/PROCEDURE END TIME: 6:58 PM PREOPERATIVE DIAGNOSIS: Left lower extremity deep vein thrombosis. POSTOPERATIVE DIAGNOSIS: Left lower extremity deep vein thrombosis. SURGEON: Frida Rodriguez MD BENCH LAY OUT TECHNICIAN: Resident, Emanuel Hull SURGERY/PROCEDURE: Venogram with intravascular [...] micropuncture needle and serially upsized to a 5-Angolan sheath. A venogram was then performed, which [...] time, the sheath was upsized to an 8-Angolan sheath. An intravascular ultrasound was performed. This [...] unit for further monitoring. Frida Rodriguez MD LM:[id number] Normal [facility] Phosphate SerPl-mCncon 06-19 Phosphate [Mass/Vol] 2.4 mg/dL Low 2.7-4.8 [facility] Comment on above: Order Comment: Speci men Type: BLOOD SPECIMENOrdering Facility: [facility] Address: [address] [place] [address] Performed By: #### 3 2355-0 #### [facility] CLIA [id number] [address] [place] [address] aPTT PPPon 06-19-2022 aPTT Coag (PPP) [Time] 46.9 s High 23.0-32.4 [facility] Comment on above: Order Comment: Speci men Type: BLOOD SPECIMENOrdering Facility: [facility] Address: [address] [place] [address] Performed By: #### 1 4979-9 ####[facility]CLIA [id number] [address] aPTT Coag (PPP) [Time] 83.8 s High 23.0-32.4 [facility] Comment on above: Order Comment: Speci men Type: BLOOD SPECIMENOrdering Facility: [facility] Address: [address] [place] [address] Performed By: #### 3 2355-0 #### [facility] CLIA [id number] [address] [place] [address] STATES OF [facility] Basic metabolic 2000 panelon 06-18-2022 Anion gap [Moles/Vol] 10 mmol/L Normal 9-18 [facility] Comment on above: Order Comment: Speci men Type: BLOOD SPECIMENOrdering Facility: [facility] Address: [address] [place] [address] Performed By: #### 2 4321-2, 39113-2, , 2776-07 ####[facility]CLIA [id number] [place] [address] [place] Calcium [Mass/Vol] 8.0 mg/dL Low 8.5-10.2 [facility] Comment on above: Order Comment: Speci men Type: BLOOD SPECIMENOrdering Facility: [facility] Address: [address] [place] [address] Performed By: #### 2 4321-2, 85743-3, , 2776-07 ####[facility]ORYCLIA [id number] [place] [address] [place] Chloride [Moles/Vol] 102 mmol/L Normal 97-105 [facility] Comment on above: Order Comment: Speci men Type: BLOOD SPECIMENOrdering Facility: [facility] Address: [address] [place] [address] Performed By: #### 2 4321-2, 61480-4, , 2776-07 ####[facility]ORYCLIA [id number] [place] [address] [place] CO2 [Moles/Vol] 21 mmol/L Low 22-30 [facility] Comment on above: Order Comment: Speci men Type: BLOOD SPECIMENOrdering Facility: [facility] Address: [address] [place] [address] Performed By: #### 2 4321-2, 22086-5, , 2776-07 ####[facility]ORY[facility]IA [id number] [place] [address] [place] Creatinine [Mass/Vol] 1.17 mg/dL High 0.58-0.96 [facility] Comment on above: Order Comment: Speci men Type: BLOOD SPECIMENOrdering Facility: [facility] Address: [address] [place] [address] Performed By: #### 2 4321-2, 76458-4, , 2776-07 ####[facility] [id number] [address] [place] ESTIMATED GLOMERULAR FILTRATION RATE 47 mL/min/1.73m??? Low >=60 [facility] Comment on above: Order Comment: Rhina mason Type: BLOOD SPECIMENOrdering Facility: [facility] Address: [address] [place] [address] Result Comment: Isa mated Glomerular Filtration Rate [...] actual GFR. Performed By: #### 2 4321-2, 48608-9, , 2776-07 ####[facility]ORY[facility] [id number] [place] [address] [place] Glucose [Mass/Vol] 112 mg/dL High 74-99 [facility] Comment on above: Order Comment: Rhina mason Type: BLOOD SPECIMENOrdering Facility: [facility] Address: [address] [place] [address] Result Comment: The [place] Diabetes Association (ADA) provides guidance for cutoff [...] Standards of Medical Care in Diabetes 2016, [place] [employer] Association. Diabetes Care. 2016.39(Suppl 1). Performed By: #### 2 4321-2, 28638-3, , 2776-07 ####[facility]IA [id number] [place] [address] [place] Potassium [Moles/Vol] 4.4 mmol/L Normal 3.7-5.1 [facility] Comment on above: Order Comment: Speci men Type: BLOOD SPECIMENOrdering Facility: [facility] Address: [address] [place] [address] Performed By: #### 2 4321-2, 74439-8, , 2776-07 ####[facility]ORYCLIA [id number] [place] [address] [place] Sodium [Moles/Vol] 133 mmol/L Low 136-144 [facility] Comment on above: Order Comment: Speci men Type: BLOOD SPECIMENOrdering Facility: [facility] Address: [address] [place] [address] Performed By: #### 2 4321-2, 33667-6, , 2776-07 ####[facility] [id number] [address] [place] Urea nitrogen [Mass/Vol] 25 mg/dL High 7-21 [facility] Comment on above: Order Comment: Speci men Type: BLOOD SPECIMENOrdering Facility: [facility] Address: [address] [place] [address] Performed By: #### 2 4321-2, 47888-0, , 2776-07 ####[facility]IA [id number] [address] [place] CBC panel Auto (Bld)on 06-18 Erythrocyte distribution width (RBC) [Ratio] 15.6 % High 11.5-15.0 [facility] Comment on above: Order Comment: Speci men Type: BLOOD SPECIMENOrdering Facility: [facility] Address: [address] [place] [address] Performed By: #### 5 8410-2 ####[facility]ORYCLIA [id number] [address] Hematocrit (Bld) [Volume fraction] 26.8 % Low 36.0-46.0 [facility] Comment on above: Order Comment: Speci men Type: BLOOD SPECIMENOrdering Facility: [facility] Address: [address] [place] [address] Performed By: #### 5 8410-2 ####[facility]ORYCLIA [id number] [address] OF [facility] Hemoglobin (Bld) [Mass/Vol] 8.5 g/dL Low 11.5-15.5 [facility] Comment on above: Order Comment: Speci men Type: BLOOD SPECIMENOrdering Facility: [facility] Address: [address] [place] [address] Performed By: #### 5 8410-2 ####[facility]ORYCLIA [id number] [address] MCH (RBC) [Entitic mass] 30.1 pg Normal 26.0-34.0 [facility] Comment on above: Order Comment: Speci men Type: BLOOD SPECIMENOrdering Facility: [facility] Address: [address] [place] [address] Performed By: #### 5 8410-2 ####[facility]ORYCLIA [id number] [address] [place] MCHC (RBC) [Mass/Vol] 31.7 g/dL Normal 30.5-36.0 [facility] Comment on above: Order Comment: Speci men Type: BLOOD SPECIMENOrdering Facility: [facility] Address: [address] [place] [address] Performed By: #### 5 8410-2 ####[facility]ORYCLIA [id number] [address] MCV (RBC) [Entitic vol] 95.0 fL Normal 80.0-100.0 [facility] Comment on above: Order Comment: Speci men Type: BLOOD SPECIMENOrdering Facility: [facility] Address: [address] [address] Performed By: #### 5 8410-2 ####[facility]ORYCLIA [id number] [address] [place] Nucleated RBC (Bld) [#/Vol] 0.03 10*3/uL High <0.01 [facility] Comment on above: Order Comment: Speci men Type: BLOOD SPECIMENOrdering Facility: [facility] Address: [address] [place] [address] Performed By: #### 5 8410-2 ####[facility]ORYCLIA [id number] [address] [place] Platelet mean volume (Bld) [Entitic vol] 10.2 fL Normal 9.0-12.7 [facility] Comment on above: Order Comment: Speci men Type: BLOOD SPECIMENOrdering Facility: [facility] Address: [address] [place] [address] Performed By: #### 5 8410-2 ####[facility]ORYCLIA [id number] [address] [place] Platelets (Bld) [#/Vol] 234 10*3/uL Normal 150-400 [facility] Comment on above: Order Comment: Speci men Type: BLOOD SPECIMENOrdering Facility: [facility] Address: [address] [place] [address] Performed By: #### 5 8410-2 ####[facility]ORYCLIA [id number] [address] [place] RBC (Bld) [#/Vol] 2.82 10*6/uL Low 3.90-5.20 [facility] Comment on above: Order Comment: Speci men Type: BLOOD SPECIMENOrdering Facility: [facility] Address: [address] [place] [address] Performed By: #### 5 8410-2 ####[facility]ORYCLIA [id number] [address] [place] WBC (Bld) [#/Vol] 8.77 10*3/uL Normal 3.70-11.00 [facility] Comment on above: Order Comment: Speci men Type: BLOOD SPECIMENOrdering Facility: [facility] Address: [place] [address] Performed By: #### 5 8410-2 ####[facility]ORYCLIA [id number] [place] [address] [facility] CONSULT PROGon 06-18-2022 CONSULT PROG HNO ID: [id number] Author: Jessica Colmenares APRN.BRANCH OPERATIONS SPECIALIST Service: Cardiovascular Medicine Author Type: Nurse Practitioner Type: Consult Progress Note Filed: 06/18/2022 2:46 PM Note Text: The ECHO reviewed, EF 59%. No significant valvular abnormalities. Chart reviewed, no further recommendations. Thank you, Jessica Colmenares APRN.BRANCH OPERATIONS SPECIALIST Normal [facility] CONSULT PROG HNO ID: [id number] Author: Cirilo Yip RPh Service: Pharmacy Author [...] Cirilo Yip RPh DATE/TIME: 06/18/2022 12:02 PM [facility] CONSULT PROG HNO ID: [id number] Author: Nimo Arzola MD Service: General Surgery [...] questions or concerns Mon-Fri 6a-5p please page [phone]. After 5pm and on Weekends and Holidays, please page [phone] if in ICU or [phone] if on [...] 0659 06/18/22 07 - 06/19/22 0659 Shift [id number] 6206-0500 0617-7405 24 Hour Total 0459-3187 5324-1599 6125-0478 24 Hour Total INTAKE IV 350 15 365 Volume (mL) 15 15 Volume (mL) (lactated ringers iv infusion) 350 350 Shift Total 350 15 365 OUTPUT Urine 5460 832 5454 Void (ml) 1450 1450 Output ( External Collection Device 06/16/22 2331) 400 400 # of BMs Stool Incontinence 1 x 1 x Number of BMs 1 x 1 x Shift Total 7946 043 1523 Weight (kg) 71.2 71.2 71.2 71.2 71.2 [...] (more content not included)... Normal [facility] Lipid 1996 panelon Cholesterol [Mass/Vol] 139 mg/dL Normal <200 [facility] Comment on above: Order Comment: Speci men Type: BLOOD SPECIMENOrdering Facility: [facility] Address: [address] [place] [address] Result Comment: <200 mg/dL, Desirable 200-239 mg/dL, Borderline high >239 mg/dL, High Performed By: #### 2 4321-2, 96566-8, , 2776-07 ####[facility]ORYCLIA [id number] [address] STATES OF [facility] Cholesterol in HDL [Mass/Vol] 56 mg/dL Normal >39 [facility] Comment on above: Order Comment: Speci [facility] Type: BLOOD SPECIMENOrdering Facility: [facility] Address: [address] [place] [address] Result Comment: 40-5 9 mg/dL, Acceptable >59 mg/dL, High: Negative risk factor for coronary heart disease <40 mg/dL, Low: Positive risk factor for coronary heart disease Performed By: #### 2 4321-2, 30303-1, , 2776-07 ####[facility]CLIA [id number] [address] [place] Cholesterol in LDL [Mass/Vol] 64 mg/dL Normal <100 [facility] Comment on above: Order Comment: Speci men Type: BLOOD SPECIMENOrdering Facility: [facility] Address: [address] [place], [place] [address] Result Comment: <100 mg/dL, Optimal 100-129 mg/dL, Near optimal/above optimal 130-159 mg/dL, Borderline high 160-189 mg/dL, High >189 mg/dL, Very high Secondary prevention optimal LDL Cholesterol levels are recommended to be < 70 mg/dL Performed By: #### 2 4321-2, 62308-5, , 2776-07 ####[facility]ORYCLIA [id number] [place] [address] [place] Cholesterol in LDL/Cholesterol in HDL [Mass ratio] 1.14 {ratio} Normal <2.54 [facility] Comment on above: Order Comment: Speci men Type: BLOOD SPECIMENOrdering Facility: [facility] Address: [address] [place] [address] Result Comment: Refe rence: 1. National Cholesterol Education Program ATP III Guideline At-A-Glance Quick Desk Reference: National Heart, Lung, and Blood Barton. National Institutes of Health. 2001: NIH Publication No. 01-3305. 2. An International Atherosclerosis Society position paper: global recommendations for the management of dyslipidemia: executive summary, Atherosclerosis. 2014: 232(2):410-413. Performed By: #### 2 4321-2, 68150-9, , 2776-07 ####[facility]ORYCLIA [id number] [place] [address] [place] Cholesterol in VLDL [Mass/Vol] 19 mg/dL Normal <30 [facility] Comment on above: Order Comment: Speci isabella Type: BLOOD SPECIMENOrdering Facility: [facility] Address: [address] [place], [place] [address] Performed By: #### 2 4321-2, 84368-5, , 2776-07 ####[facility]ORYCLIA [id number] [place] [address] [place] Cholesterol non HDL [Mass/Vol] 83 mg/dL Normal <130 [facility] Comment on above: Order Comment: Speci men Type: BLOOD SPECIMENOrdering Facility: [facility] Address: [address] [place] [address] Result Comment: <130 mg/dL, Optimal 130-159 mg/dL, Near optimal/above optimal 160-189 mg/dL, Borderline high 190-219 mg/dL, High >219 mg/dL, Very high Secondary prevention optimal non HDL Cholesterol levels are recommended to be <100 mg/dL Performed By: #### 2 4321-2, 32397-4, , 2776-07 ####[facility]ORYCLIA [id number] [address] OF [facility] Cholesterol.total/Pastora sterol in HDL [Mass ratio] 2.48 {ratio} Normal <5.10 [facility] Comment on above: Order Comment: Speci men Type: BLOOD SPECIMENOrdering Facility: [facility] Address: [address] [place] [address] Performed By: #### 2 4321-2, 02164-8, , 2776-07 ####[facility]ORYCLIA [id number] [address] OF [facility] FASTING TIME 8 hrs Normal [facility] Comment on above: Order Comment: Speci men Type: BLOOD SPECIMENOrdering Facility: [facility] Address: [address] [place] [address] Performed By: #### 2 4321-2, 75155-2, , 2776-07 ####[facility]ORYCLIA [id number] [address] [place] Triglyceride [Mass/Vol] 93 mg/dL Normal <150 [facility] Comment on above: Order Comment: Speci men Type: BLOOD SPECIMENOrdering Facility: [facility] Address: [address] [place] [address] Result Comment: <150 mg/dL, Normal 150-199 mg/dL, Borderline high 200-499 mg/dL, High >499 mg/dL, Very high Performed By: #### 2 4321-2, 62624-7, , 2776-07 ####[facility]ORYCLIA [id number] [place] [address] [place] Magnesium SerPl-mCncon 06-18 Magnesium [Mass/Vol] 2.1 mg/dL Normal 1.7-2.3 [facility] Comment on above: Order Comment: Speci men Type: BLOOD SPECIMENOrdering Facility: [facility] Address: [address] [place] [address] Performed By: #### 2 4321-2, 85828-6, , 2776-07 ####[facility] LABORATORYCLIA [id number] [address] [place] Phosphate SerPl-mCncon 06-18 Phosphate [Mass/Vol] 3.3 mg/dL Normal 2.7-4.8 [facility] Comment on above: Order Comment: Speci men Type: BLOOD SPECIMENOrdering Facility: [facility] Address: [address] [place] [address] Performed By: #### 2 4321-2, 29100-1, , 2776-07 ####[facility] LABORATORYCLIA [id number] [address] [place] aPTT PPPon 06-18-2022 aPTT Coag (PPP) [Time] 37.2 s High 23.0-32.4 [facility] [facility] Comment on above: Order Comment: Speci men Type: BLOOD SPECIMENOrdering Facility: [facility] Address: [address] [place] [address] Performed By: #### 9 4500-6 #### [facility] CLIA [id number] [address] [place] aPTT Coag (PPP) [Time] 58.8 s High 23.0-32.4 [facility] Comment on above: Order Comment: Speci men Type: BLOOD SPECIMENOrdering Facility: [facility] Address: [address] [place] [address] Performed By: #### 1 4979-9 ####[facility]ORYCLIA [id number] [address] [place] aPTT Coag (PPP) [Time] 127.7 s High 23.0-32.4 [facility] Comment on above: Order Comment: Speci men Type: BLOOD SPECIMEN [facility] Address: [address] [place] [address] Performed By: #### T SCR #### [facility] CLIA [id number] [address] ALLIED HEALTHon 06-17-2022 ALLIED HEALTH HNO ID: [id number] Author: RT [place](Tiffanie) Service: Radiology Author Type: Technologist Type: Allied [...] [place](R) June 17, 2022 9:30 AM Normal [facility] HNO ID: [id number] Author: Jeremías Bragg II Service: Infection Prevention [...] TIME: 8:27 AM PAGER/CONTACT #: Infection Prevention, [id number] Infection Prevention after hours/weekend pager: [phone] Normal 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 Basic metabolic 2000 panelon 06-17-2022 Anion gap [Moles/Vol] 9 mmol/L Normal 9-18 [facility] Comment on above: Order Comment: Speci men Type: BLOOD SPECIMENOrdering Facility: [facility] Address: [address] [place] [address] Performed By: #### 2 4321-2, , 2776-07 ####[facility]ORYCLIA [id number] [place] [address] [place] Calcium [Mass/Vol] 7.9 mg/dL Low 8.5-10.2 [facility] Comment on above: Order Comment: Speci men Type: BLOOD SPECIMENOrdering Facility: [facility] Address: [address] [address] Performed By: #### 2 4321-2, , 2776-07 ####[facility]ORYCLIA [id number] [place] [address] [place] Chloride [Moles/Vol] 107 mmol/L High 97-105 [facility] Comment on above: Order Comment: Speci men Type: BLOOD SPECIMENOrdering Facility: [facility] Address: [address] [address] Performed By: #### 2 4321-2, , 2776-07 ####[facility]ORYCLIA [id number] [place] [address] [place] CO2 [Moles/Vol] 21 mmol/L Low 22-30 [facility] Comment on above: Order Comment: Speci men Type: BLOOD SPECIMENOrdering Facility: [facility] Address: [address] [address] Performed By: #### 2 4321-2, 66823-3, 2776-07 ####[facility]ORYCLIA [id number] [address] [place] [id number] [place] [facility] Creatinine [Mass/Vol] 0.99 mg/dL High 0.58-0.96 [facility] Comment on above: Order Comment: Speci men Type: BLOOD SPECIMENOrdering Facility: [facility] Address: [address] [address] Performed By: #### 2 4321-2, , 2776-07 ####[facility]ORYCLIA [id number] [address] OF [facility] ESTIMATED GLOMERULAR FILTRATION RATE 57 mL/min/1.73m??? Low >=60 [facility] Comment on above: Order Comment: Speci men Type: BLOOD SPECIMENOrdering Facility: [facility] Address: [address] [place] [place] [address] Result Comment: Isa mated Glomerular Filtration Rate [...] Performed By: #### 2 4321-2, , 2776-07 ####[facility]ORYCLIA [id number] [address] STATES OF [facility] Glucose [Mass/Vol] 84 mg/dL Normal 74-99 [facility] Comment on above: Order Comment: Speci men Type: BLOOD SPECIMENOrdering Facility: [facility] Address: [address] [place] [place] [address] Result Comment: The [place] Diabetes Association (ADA) provides guidance for cutoff [...] Standards of Medical Care in Diabetes 2016, [place] [employer] Association. Diabetes Care. 2016.39(Suppl 1). Performed By: #### 2 4321-2, , 2776-07 ####[facility]ORYCLIA [id number] [place] [address] [place] Potassium [Moles/Vol] 4.3 mmol/L Normal 3.7-5.1 [facility] Comment on above: Order Comment: Rhina mason Type: BLOOD SPECIMENOrdering Facility: [facility] Address: [address] [place] [address] Performed By: #### 2 4321-2, , 2776-07 ####[facility] [id number] [address] STATES OF [facility] Sodium [Moles/Vol] 137 mmol/L Normal 136-144 [facility] Comment on above: Order Comment: Rhina mason Type: BLOOD SPECIMENOrdering Facility: [facility] Address: [address] [place] [address] Performed By: #### 2 4321-2, , 2776-07 ####[facility]ORYCLIA [id number] [place] [address] [place] Urea nitrogen [Mass/Vol] 27 mg/dL High 7-21 [facility] Comment on above: Order Comment: Rhina mason Type: BLOOD SPECIMENOrdering Facility: [facility] Address: [address] [place] [address] Performed By: #### 2 4321-2, , 2776-07 ####[facility]ORYCLIA [id number] [place] [address] [place] CBC panel Auto (Bld)on 06-17 Erythrocyte distribution width (RBC) [Ratio] 15.5 % High 11.5-15.0 [facility] Comment on above: Order Comment: Speci men Type: BLOOD SPECIMENOrdering Facility: [facility] Address: [address] [place] [address] Performed By: #### 5 8410-2 ####[facility]ORYCLIA [id number] [address] OF [facility] Hematocrit (Bld) [Volume fraction] 26.6 % Low 36.0-46.0 [facility] Comment on above: Order Comment: Speci men Type: BLOOD SPECIMENOrdering Facility: [facility] Address: [address] [place] [address] Performed By: #### 5 8410-2 ####[facility]ORYCLIA [id number] [address] STATES OF [facility] Hemoglobin (Bld) [Mass/Vol] 8.5 g/dL Low 11.5-15.5 [facility] Comment on above: Order Comment: Speci men Type: BLOOD SPECIMENOrdering Facility: [facility] Address: [address] [place] [address] Performed By: #### 5 8410-2 ####[facility]ORYCLIA [id number] [address] [place] MCH (RBC) [Entitic mass] 30.0 pg Normal 26.0-34.0 [facility] Comment on above: Order Comment: Speci men Type: BLOOD SPECIMENOrdering Facility: [facility] Address: [address] [place] [address] Performed By: #### 5 8410-2 ####[facility]ORYCLIA [id number] [address] STATES [facility] MCHC (RBC) [Mass/Vol] 32.0 g/dL Normal 30.5-36.0 [facility] Comment on above: Order Comment: Speci men Type: BLOOD SPECIMENOrdering Facility: [facility] Address: [address] [place] [address] Performed By: #### 5 8410-2 ####[facility]ORYCLIA [id number] [address] [place] MCV (RBC) [Entitic vol] 94.0 fL Normal 80.0-100.0 [facility] Comment on above: Order Comment: Speci men Type: BLOOD SPECIMENOrdering Facility: [facility] Address: [address] [place] [address] Performed By: #### 5 8410-2 ####[facility]ORYCLIA [id number] [address] OF [facility] Nucleated RBC (Bld) [#/Vol] 0.02 10*3/uL High <0.01 [facility] Comment on above: Order Comment: Speci men Type: BLOOD SPECIMENOrdering Facility: [facility] Address: [address] [place] [address] Performed By: #### 5 8410-2 ####[facility]ORYCLIA [id number] [address] Platelet mean volume (Bld) [Entitic vol] 9.5 fL Normal 9.0-12.7 [facility] Comment on above: Order Comment: Speci men Type: BLOOD SPECIMENOrdering Facility: [facility] Address: [address] [place] [address] Performed By: #### 5 8410-2 ####[facility]ORYCLIA [id number] [address] [place] Platelets (Bld) [#/Vol] 223 10*3/uL Normal 150-400 [facility] Comment on above: Order Comment: Speci men Type: BLOOD SPECIMENOrdering Facility: [facility] Address: [address] [place] [address] Performed By: #### 5 8410-2 ####[facility]ORYCLIA [id number] [address] [place] RBC (Bld) [#/Vol] 2.83 10*6/uL Low 3.90-5.20 [facility] Comment on above: Order Comment: Speci men Type: BLOOD SPECIMENOrdering Facility: [facility] Address: [address] [place] [address] Performed By: #### 5 8410-2 ####[facility]ORYCLIA [id number] [address] WBC (Bld) [#/Vol] 8.61 10*3/uL Normal 3.70-11.00 [facility] Comment on above: Order Comment: Speci men Type: BLOOD SPECIMENOrdering Facility: [facility] Address: [place] [address] Performed By: #### 5 8410-2 ####[facility]ORYCLIA [id number] [place] [id number] [facility] CONSULTon 06-17-2022 CONSULT HNO ID: [id number] Author: García Monique MD Service: Cardiovascular Medicine Author Type: Physician Type: Consults Filed: 06/17/2022 11:14 AM Note Text: CARDIOVASCULAR INTENSIVE CARE UNIT (CV[facility]) History AND Physical Note PATIENT NAME: Mel Castillo DATE: June 17, 2022 ADMITTED FOR: Subjective HPI Ms. Mel Castillo is a 81 year old female with PMH: - Paroxysmal Afib - GERD - HTN - Hypothyroidism Patient presented to [facility] on 06/16/2022 for evaluation of [...] her covid symptoms. States doesnot see a welfare supervisor and has no other past cardiac history [...] -- 11.0 COAG: Recent Labs 06/17/22 0027 06/16/226 06/16/22 1215 06/16/22 0951 06/16/22 0304 APTT [...] Procedure Component Value Units Date/Time Expedited COVID19 [[id number]] (Abnormal) Collected: 06/16/22826 Order Status: Completed Specimen: Nasal Swab from UPPER RESPIRATORY TRACT SWAB Updated: 06/16/221107 COVID 19 Result SARS-CoV-2 (Agent of COVID-19) Detected by RT-PCR or equivalent method. Comment: This test has been authorized by FDA under an Emergency Use Authorization (EUA). IMAGING: CT chest: No results found for: (more content not included)... Normal [facility] CONSULT PROGon 06-17-2022 CONSULT PROG HNO ID: [id number] Author: Dominique Lauren RP Service: Pharmacy Author Type: Pharmacist Type: Consult [...] any questions or concerns. SIGNATURE: Dominique Lauren [facility] DATE/TIME: 06/17/2022 3:47 PM [facility] CONSULT PROG HNO ID: [id number] Author: Emanuel Hull MD Service: General Surgery [...] questions or concerns Tue-Tue 6a-5p please page [phone]. 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 Normal [facility] ECHOon 06-17-2022 Echocardiography Echocardiography Report: Transthoracic Echo [facility] Date of service: 06/17/2022 10:27:19 AM [facility] Ordering physician: GARCÍA MONIQUE Indication: Nonsustained [...] * * Final * * * CC [employer] : [id number] SUID Normal [facility] Magnesium [Mass/Vol] 2.1 mg/dL Normal 1.7-2.3 [facility] Comment on above: Order Comment: Rhina mason Type: BLOOD SPECIMENOrdering Facility: [facility] Address: [address] [id number] Performed By: #### 2 4321-2, , 2776-07 ####[facility]ORYCLIA [id number] [place] [address] [place] Phosphate SerPl-mCncon 06-17 Phosphate [Mass/Vol] 3.8 mg/dL Normal 2.7-4.8 [facility] Comment on above: Order Comment: Rhina mason Type: BLOOD SPECIMENOrdering Facility: [facility] Address: [address] Performed By: #### 2 4321-2, , 7-1 ####[facility]ORYCLIA [id number] [address] STATES OF [facility] XR CHEST 1V FRONTALon 2021 XR CHEST [...] None. RESULT: Lines, tubes, and devices: monitoring engineer leads. Hardware noted in the proximal right [...] in both lungs suspicious for multifocal pneumonia. Assistant Plant Controller: DEVEN Transcribe Date/Time: Jun 17 2022 10:41A Dictated by : DI MINER MD This examination was interpreted and the report reviewed and electronically signed by: DI MINER MD on Jun 17 2022 10:43AM EST [id number] Normal [facility] aPTT PPPon 06-17-2022 aPTT Coag (PPP) [Time] 48.4 s High 23.0-32.4 [facility] Comment on above: Order Comment: Speci men Type: BLOOD SPECIMENOrdering Facility: [facility] Address: [address] [place], [place] [address] Performed By: #### 9 4500-6 #### [facility] CLIA [id number] [address] aPTT Coag (PPP) [Time] 29.4 s Normal 23.0-32.4 [facility] Comment on above: Order Comment: Speci men Type: BLOOD SPECIMENOrdering Facility: [facility] Address: [address] [place] [address] Performed By: #### 3 2355-0 #### [facility] CLIA [id number] [address] aPTT Coag (PPP) [Time] 125.1 s High 23.0-32.4 [facility] Comment on above: Order Comment: Speci men Type: BLOOD SPECIMEN [facility] Address: [address] [place] [address] Performed By: #### T SCR #### [facility] CLIA [id number] [address] aPTT Coag (PPP) [Time] s High 23.0-32.4 [facility] Comment on above: Order Comment: Speci men Type: BLOOD SPECIMENOrdering Facility: [facility] Address: [address] [place] [address] Performed By: #### 3 2355-0 #### [facility] CLIA [id number] [address] aPTT Coag (PPP) [Time] 28.5 s Normal 23.0-32.4 [facility] Comment on above: Order Comment: Speci men Type: BLOOD SPECIMENOrdering Facility: [facility] Address: [address] [place] [address] Performed By: #### 1 4979-9 ####[facility]ORYCLIA [id number] [address] OF [facility] ANES PRE-OPon 06-16-2022 ANES PRE-OP HNO ID: [id number] Author: Olu Winn MD Service: Anesthesiology Author Type: Physician Type: Anesthesia Preprocedure Evaluation Filed: 06/16/2022 5:41 PM Note Text: ANESTHESIOLOGY DAY OF SURGERY NOTE : 1940 Procedure Information Date/Time: 06/16/221539 Procedure: TRANSCATHETER THERAPY VENOUS INFUSION FOR THROMBOLYSIS W/RADIOLOGICAL SUPERVISION/INTERPRETAT ION INITIAL TREATMENT DAY, venogram (Left: Leg lower ) [place]: [place] Surgeons: Frida Rodriguez MD Estimated body [...] June 16, 2022 TIME: 3:44 PM CSN: [id number] [facility] BRIEF OP NOTon 06-16-2022 BRIEF OP NOT HNO ID: [id number] Author: Emanuel Hull MD Service: General Surgery [...] BRIEF OPERATIVE / PROCEDURE NOTE LOG ID: [id number] Surgery/Procedure Date: 06/16/2022 Incision/Procedure Start Time: 5:01 PM Incision Close/Procedure End Time: 6:58 PM Surgeon(s)/Proceduralis t(s) and Restoration Technician(s): Surgeon(s) and Role: * Frida Rodriguez MD [...] and on weekends, please page surgery on-call [phone] (RNF) or [phone] (ICU) SIGNATURE: Emanuel Hull MD PATIENT NAME: Mel Castillo DATE: June 16, 2022 TIME: 7:19 PM PAGER/CONTACT #: [phone] Normal [facility] CBC W Auto Differential pane l (Bld)on 06-16-2022 Anisocytosis Ql (Bld) Present Normal [facility] Comment on above: Order Comment: Speci men Type: BLOOD SPECIMENOrdering Facility: [facility] Address: [address] [address] Performed By: #### 5 7021-8 ####[facility]ORYCLIA [id number] [place] [address] [place] Basophils (Bld) [#/Vol] 0.00 10*3/uL Normal <0.11 [facility] Comment on above: Order Comment: Speci men Type: BLOOD SPECIMENOrdering Facility: [facility] Address: [address] [place] [address] Performed By: #### 5 7021-8 ####[facility]ORYCLIA [id number] [address] Basophils/100 WBC (Bld) 0.0 % Normal [facility] Comment on above: Order Comment: Speci men Type: BLOOD SPECIMENOrdering Facility: [facility] Address: [address] [address] Performed By: #### 5 7021-8 ####[facility]ORYCLIA [id number] [address] Differential cell count method Nom (Bld) Manual Normal [facility] Comment on above: Order Comment: Speci men Type: BLOOD SPECIMENOrdering Facility: [facility] Address: [address] [place] [address] Performed By: #### 5 7021-8 ####[facility]ORYCLIA [id number] [address] OF [facility] Eosinophils (Bld) [#/Vol] 0.00 10*3/uL Normal <0.46 [facility] Comment on above: Order Comment: Speci men Type: BLOOD SPECIMENOrdering Facility: [facility] Address: [address] [address] Performed By: #### 5 7021-8 ####[facility]ORYCLIA [id number] [address] Eosinophils/100 WBC (Bld) 0.0 % Normal [facility] Comment on above: Order Comment: Speci men Type: BLOOD SPECIMENOrdering Facility: [facility] Address: [address] [address] Performed By: #### 5 7021-8 ####[facility]ORYCLIA [id number] [address] Erythrocyte distribution width (RBC) [Ratio] 15.6 % High 11.5-15.0 [facility] Comment on above: Order Comment: Speci men Type: BLOOD SPECIMENOrdering Facility: [facility] Address: [address] [address] Performed By: #### 5 7021-8 ####[facility]ATORYCLIA [id number] [address] [place] Hematocrit (Bld) [Volume fraction] 35.3 % Low 36.0-46.0 [facility] Comment on above: Order Comment: Speci men Type: BLOOD SPECIMENOrdering Facility: [facility] Address: [address] [place] [address] Performed By: #### 5 7021-8 ####[facility]ORYCLIA [id number] [address] [place] Hemoglobin (Bld) [Mass/Vol] 11.4 g/dL Low 11.5-15.5 [facility] Comment on above: Order Comment: Speci men Type: BLOOD SPECIMENOrdering Facility: [facility] Address: [address] [place] [address] Performed By: #### 5 7021-8 ####[facility]ORYCLIA [id number] [address] [place] Lymphocytes (Bld) [#/Vol] 1.27 10*3/uL Normal 1.00-4.00 [facility] Comment on above: Order Comment: Speci men Type: BLOOD SPECIMENOrdering Facility: [facility] Address: [address] [place] [address] Performed By: #### 5 7021-8 ####[facility]ORYCLIA [id number] [address] [place] Lymphocytes/100 WBC (Bld) 8.0 % Normal [facility] Comment on above: Order Comment: Speci men Type: BLOOD SPECIMENOrdering Facility: [facility] Address: [address] [place] [address] Performed By: #### 5 7021-8 ####[facility]ATORYCLIA [id number] [address] [place] MCH (RBC) [Entitic mass] 30.2 pg Normal 26.0-34.0 [facility] Comment on above: Order Comment: Speci men Type: BLOOD SPECIMENOrdering Facility: [facility] Address: [address] [place] [address] Performed By: #### 5 7021-8 ####[facility]ORYCLIA [id number] [address] MCHC (RBC) [Mass/Vol] 32.3 g/dL Normal 30.5-36.0 [facility] Comment on above: Order Comment: Speci men Type: BLOOD SPECIMENOrdering Facility: [facility] Address: [address] [place] [address] Performed By: #### 5 7021-8 ####[facility]ORYCLIA [id number] [address] MCV (RBC) [Entitic vol] 93.6 fL Normal 80.0-100.0 [facility] Comment on above: Order Comment: Speci men Type: BLOOD SPECIMENOrdering Facility: [facility] Address: [address] [place] [address] Performed By: #### 5 7021-8 ####[facility]ATORYCLIA [id number] [address] Monocytes (Bld) [#/Vol] 1.74 10*3/uL High <0.87 [facility] Comment on above: Order Comment: Speci men Type: BLOOD SPECIMENOrdering Facility: [facility] Address: [address] [place] [address] Performed By: #### 5 7021-8 ####[facility]ORYCLIA [id number] [address] Monocytes/100 WBC (Bld) 11.0 % Normal [facility] Comment on above: Order Comment: Speci men Type: BLOOD SPECIMENOrdering Facility: [facility] Address: [address] [place] [address] Performed By: #### 5 7021-8 ####[facility]ORYCLIA [id number] [address] MYELO% 4.0 % Normal [facility] Comment on above: Order Comment: Speci men Type: BLOOD SPECIMENOrdering Facility: [facility] Address: [address] [place] [address] Performed By: #### 5 7021-8 ####[facility] LABORATORYCLIA [id number] [place] [address] [place] Neutrophils (Bld) [#/Vol] 12.02 10*3/uL High 1.45-7.50 [facility] Comment on above: Order Comment: Speci men Type: BLOOD SPECIMENOrdering Facility: [facility] Address: [address] [address] Performed By: #### 5 7021-8 ####[facility]ORATORYCLIA [id number] [address] [place] Neutrophils/100 WBC (Bld) 76.0 % Normal [facility] Comment on above: Order Comment: Speci men Type: BLOOD SPECIMENOrdering Facility: [facility] Address: [address] [address] Performed By: #### 5 7021-8 ####[facility]ORATORYCLIA [id number] [place] [address] [place] Nucleated RBC (Bld) [#/Vol] 10*3/uL Normal <0.01 [facility] Comment on above: Order Comment: Speci men Type: BLOOD SPECIMENOrdering Facility: [facility] Address: [address] [place] [address] Performed By: #### 5 7021-8 ####[facility]ORYCL[facility] [id number] [address] [place] Nucleated RBC/100 WBC (Bld) [Ratio] 0.0 /100 WBC Normal [facility] Comment on above: Order Comment: Speci men Type: BLOOD SPECIMENOrdering Facility: [facility] Address: [address] [address] Performed By: #### 5 7021-8 ####[facility]ORATORYCLIA [id number] [address] [place] Platelet mean volume (Bld) [Entitic vol] 9.7 fL Normal 9.0-12.7 [facility] Comment on above: Order Comment: Speci men Type: BLOOD SPECIMENOrdering Facility: [facility] Address: [address] [address] Performed By: #### 5 7021-8 ####[facility]ORATORYCLIA [id number] [address] [place] Platelets (Bld) [#/Vol] 373 10*3/uL Normal 150-400 [facility] Comment on above: Order Comment: Speci men Type: BLOOD SPECIMENOrdering Facility: [facility] Address: [address] [place] [address] Performed By: #### 5 7021-8 ####[facility]ATORYCLIA [id number] [address] Platelets Estimate (Bld) [#/Vol] Adequate Normal [facility] Comment on above: Order Comment: Speci men Type: BLOOD SPECIMENOrdering Facility: [facility] Address: [address] [place] [address] Performed By: #### 5 7021-8 ####[facility]ATORYCLIA [id number] [address] PROMYL% 1.0 % Normal [facility] Comment on above: Order Comment: Speci men Type: BLOOD SPECIMENOrdering Facility: [facility] Address: [address] [place] [address] Performed By: #### 5 7021-8 ####[facility]ORATORYCLIA [id number] [place] [address] [place] RBC (Bld) [#/Vol] 3.77 10*6/uL Low 3.90-5.20 [facility] Comment on above: Order Comment: Speci men Type: BLOOD SPECIMENOrdering Facility: [facility] Address: [address] [place] [address] Performed By: #### 5 7021-8 ####[facility]ORATORYCLIA [id number] [address] RED CELL MORPH Normal Normal [facility] Comment on above: Order Comment: Speci men Type: BLOOD SPECIMENOrdering Facility: [facility] Address: [address] [place] [address] Performed By: #### 5 7021-8 ####[facility]ATORYCLIA [id number] [address] SPHEROCYTES Few Normal [facility] Comment on above: Order Comment: Speci men Type: BLOOD SPECIMENOrdering Facility: [facility] Address: [address] [place] [address] Performed By: #### 5 7021-8 ####[facility]ATORYCLIA [id number] [address] WBC (Bld) [#/Vol] 15.82 10*3/uL High 3.70-11.00 [facility] Comment on above: Order Comment: Speci men Type: BLOOD SPECIMENOrdering Facility: [facility] Address: [address] [place] [address] Result Comment: Resu lts checked and verified. Performed By: #### 5 7021-8 ####[facility]ATORYCLIA [id number] [address] CBC panel Auto (Bld)on 06-16 Erythrocyte distribution width (RBC) [Ratio] 15.5 % High 11.5-15.0 [facility] Comment on above: Order Comment: Speci men Type: BLOOD SPECIMENOrdering Facility: [facility] Address: [address] [place] [address] Performed By: #### 5 8410-2 ####[facility]ATORYCLIA [id number] [address] Hematocrit (Bld) [Volume fraction] 30.1 % Low 36.0-46.0 [facility] Comment on above: Order Comment: Speci men Type: BLOOD SPECIMENOrdering Facility: [facility] Address: [address] [place] [address] Performed By: #### 5 8410-2 ####[facility]ATORYCLIA [id number] [address] Hemoglobin (Bld) [Mass/Vol] 9.8 g/dL Low 11.5-15.5 [facility] Comment on above: Order Comment: Speci men Type: BLOOD SPECIMENOrdering Facility: [facility] Address: [address] [place] [address] Performed By: #### 5 8410-2 ####[facility]ATORYCLIA [id number] [address] MCH (RBC) [Entitic mass] 30.8 pg Normal 26.0-34.0 [facility] Comment on above: Order Comment: Speci men Type: BLOOD SPECIMENOrdering Facility: [facility] Address: [address] [place] [address] Performed By: #### 5 8410-2 ####[facility]ATORYCLIA [id number] [address] MCHC (RBC) [Mass/Vol] 32.6 g/dL Normal 30.5-36.0 [facility] Comment on above: Order Comment: Speci men Type: BLOOD SPECIMENOrdering Facility: [facility] Address: [address] [place] [address] Performed By: #### 5 8410-2 ####[facility]ATORYCLIA [id number] [address] MCV (RBC) [Entitic vol] 94.7 fL Normal 80.0-100.0 [facility] Comment on above: Order Comment: Speci men Type: BLOOD SPECIMENOrdering Facility: [facility] Address: [address] [place] [address] Performed By: #### 5 8410-2 ####[facility]ORYCLIA [id number] [address] Nucleated RBC (Bld) [#/Vol] 0.08 10*3/uL High <0.01 [facility] Comment on above: Order Comment: Speci men Type: BLOOD SPECIMENOrdering Facility: [facility] Address: [address] [place] [address] Performed By: #### 5 8410-2 ####[facility]ATORYCLIA [id number] [address] [place] Platelet mean volume (Bld) [Entitic vol] 9.6 fL Normal 9.0-12.7 [facility] Comment on above: Order Comment: Speci men Type: BLOOD SPECIMENOrdering Facility: [facility] Address: [address] [place] [address] Performed By: #### 5 8410-2 ####[facility]ATORYCLIA [id number] [address] [place] Platelets (Bld) [#/Vol] 277 10*3/uL Normal 150-400 [facility] Comment on above: Order Comment: Speci men Type: BLOOD SPECIMENOrdering Facility: [facility] Address: [address] [place] [address] Performed By: #### 5 8410-2 ####[facility]ATORYCLIA [id number] [address] [place] RBC (Bld) [#/Vol] 3.18 10*6/uL Low 3.90-5.20 [facility] Comment on above: Order Comment: Speci men Type: BLOOD SPECIMENOrdering Facility: [facility] Address: [address] [place] [address] Performed By: #### 5 8410-2 ####[facility]ATORYCLIA [id number] [address] [place] WBC (Bld) [#/Vol] 10.43 10*3/uL Normal 3.70-11.00 [facility] Comment on above: Order Comment: Speci men Type: BLOOD SPECIMENOrdering Facility: [facility] Address: [address] [place] [address] [place] [address] Performed By: #### 5 8410-2 ####[facility] [id number] [address] STATES OF [facility] CONSULTon 06-16-2022 CONSULT HNO ID: [id number] Author: Iman Saldana DO Service: General Surgery [...] (more content not included)... Normal [facility] CTA ABD/PEL/LOWER EXT W IVCO Non 06-16-2022 CTA ABD/PEL/LOWER EXT W IVCON * * *Final Report* * * DATE OF EXAM: Jun 16 2022 7:33AM [facility] 0122 - CTA ABD/PEL/LOWER EXT W [...] lobe consolidation may represent pneumonia or atelectasis. Assistant Plant Controller: DEVEN Transcribe Date/Time: Jun 16 2022 7:54A Dictated by : ESTHER MCKEON MD This examination was interpreted and the report reviewed and electronically signed by: ESTHER MCKEON MD on Jun 16 2022 8:22AM EST [id number] Normal [facility] Comprehensive metabolic 2000 panelon 06-16-2022 Albumin [Mass/Vol] 3.2 g/dL Low 3.9-4.9 [facility] Comment on above: Order Comment: Speci men Type: BLOOD SPECIMENOrdering Facility: [facility] Address: [address] [place] [address] Performed By: #### 3 3959-8, 86848-5, 35564-1, 05720-7 ####[facility]ATORYCLIA [id number] [address] STATES OF [facility] ALP [Catalytic activity/Vol] 111 U/L Normal 34-123 [facility] Comment on above: Order Comment: Speci men Type: BLOOD SPECIMENOrdering Facility: [facility] Address: [address] [place] [address] Performed By: #### 3 3959-8, 64148-0, 38987-6, 13537-1 ####[facility]ATORYCLIA [id number] [address] STATES OF [facility] ALT With P-5'-P [Catalytic activity/Vol] 20 U/L Normal 7-38 [facility] Comment on above: Order Comment: Speci men Type: BLOOD SPECIMENOrdering Facility: [facility] Address: [address] [place] [address] Performed By: #### 3 3959-8, 10987-1, 46423-3, 72662-3 ####[facility]ATORYCLIA [id number] [address] Anion gap [Moles/Vol] 17 mmol/L Normal 9-18 [facility] Comment on above: Order Comment: Speci men Type: BLOOD SPECIMENOrdering Facility: [facility] Address: [address] [place] [address] Performed By: #### 3 3959-8, 40601-2, 84876-4, 18751-7 ####[facility]ATORYCLIA [id number] [address] AST With P-5'-P [Catalytic activity/Vol] 13 U/L Normal 13-35 [facility] Comment on above: Order Comment: Speci men Type: BLOOD SPECIMENOrdering Facility: [facility] Address: [address] [place] [address] Performed By: #### 3 3959-8, 53095-7, 58973-1, 44171-7 ####[facility]ATORYCLIA [id number] [place] [address] [place] Bilirubin [Mass/Vol] 0.3 mg/dL Normal 0.2-1.3 [facility] Comment on above: Order Comment: Speci men Type: BLOOD SPECIMENOrdering Facility: [facility] Address: [address] [place] [address] Performed By: #### 3 3959-8, 01574-9, 84857-8, 95632-1 ####[facility]ATORYCLIA [id number] [place] [address] [place] Calcium [Mass/Vol] 9.1 mg/dL Normal 8.5-10.2 [facility] Comment on above: Order Comment: Speci men Type: BLOOD SPECIMENOrdering Facility: [facility] Address: [address] [place] [address] Performed By: #### 3 3959-8, 51688-7, 59672-8, 93718-2 ####[facility]ATORYCLIA [id number] [place] [address] [place] Chloride [Moles/Vol] 104 mmol/L Normal 97-105 [facility] Comment on above: Order Comment: Speci men Type: BLOOD SPECIMENOrdering Facility: [facility] Address: [address] [place] [address] Performed By: #### 3 3959-8, 90141-1, 02606-8, 99512-1 ####[facility]ATORYCLIA [id number] [place] [address] [place] CO2 [Moles/Vol] 18 mmol/L Low 22-30 [facility] Comment on above: Order Comment: Speci men Type: BLOOD SPECIMENOrdering Facility: [facility] Address: [address] [address] Performed By: #### 3 3959-8, 19667-8, 38594-8, 61252-2 ####[facility]ATORYCLIA [id number] [address] [id number] [place] Creatinine [Mass/Vol] 1.14 mg/dL High 0.58-0.96 [facility] Comment on above: Order Comment: Speci men Type: BLOOD SPECIMENOrdering Facility: [facility] Address: [address] [address] Performed By: #### 3 3959-8, 22034-7, 56516-9, 67167-9 ####[facility]CL[facility] [id number] [place] [address] [place] ESTIMATED GLOMERULAR FILTRATION RATE 48 mL/min/1.73m??? Low >=60 [facility] Comment on above: Order Comment: Speci men Type: BLOOD SPECIMENOrdering Facility: [facility] Address: [address] [address] Result Comment: Isa mated Glomerular Filtration Rate [...] actual GFR. Performed By: #### 3 3959-8, 50624-4, 15637-1, 41677-0 ####[facility]ATORYCLIA [id number] [place] [address] [place] Glucose [Mass/Vol] 122 mg/dL High 74-99 [facility] Comment on above: Order Comment: Speci men Type: BLOOD SPECIMENOrdering Facility: [facility] Address: [address] [address] Result Comment: The [place] Diabetes Association (ADA) provides guidance for cutoff [...] Standards of Medical Care in Diabetes 2016, [place] [employer]. Diabetes Care. 2016.39(Suppl 1). Performed By: #### 3 3959-8, 28523-0, 68387-3, 06359-3 ####[facility]ATORYCLIA [id number] [place] [address] [place] Potassium [Moles/Vol] 4.4 mmol/L Normal 3.7-5.1 [facility] Comment on above: Order Comment: Speci men Type: BLOOD SPECIMENOrdering Facility: [facility] Address: [address] [address] Performed By: #### 3 3959-8, 86006-0, 42312-3, 05854-8 ####[facility]CL[facility] [id number] [place] [address] [place] Protein [Mass/Vol] 6.6 g/dL Normal 6.3-8.0 [facility] Comment on above: Order Comment: Speci men Type: BLOOD SPECIMENOrdering Facility: [facility] Address: [address] [address] Performed By: #### 3 3959-8, 06335-3, 61251-8, 82254-6 ####[facility]ATORYCLIA [id number] [place] [address] [place] Sodium [Moles/Vol] 139 mmol/L Normal 136-144 [facility] Comment on above: Order Comment: Speci men Type: BLOOD SPECIMENOrdering Facility: [facility] Address: [address] [address] Performed By: #### 3 3959-8, 92485-6, 74894-7, 89434-6 ####[facility]ATORYCLIA [id number] [place] [address] [facility] Urea nitrogen [Mass/Vol] 35 mg/dL High 7- [facility] Comment on above: Order Comment: Speci men Type: BLOOD SPECIMENOrdering Facility: [facility] Address: [address] [place], [place] [address] [id number] Performed By: #### 3 3959-8, 88936-4, 94403-1, 15343-7 ####[facility]ATORYCLIA [id number] [place] [address] [facility] ED NOTEon 06-16-2022 ED NOTE HNO ID: [id number] Author: Adela Cortez RN Service: Emergency Medicine Author Type: Registered Nurse Type: ED Notes Filed: 06/16/2022 11:27 AM Note Text: Pts aptt is >139. Nongram states to hold dose and let MD know. Vascular resident made aware, ordered to hold dose x1 hour and then redraw aptt. Normal [facility] ED NOTE HNO ID: [id number] Author: Nancy Scott RN Service: Emergency Medicine Author Type: Registered Nurse Type: ED Notes Filed: 06/16/2022 7:13 AM Note Text: CT notified that pt has been moved to new room and is ready for testing Normal [facility] ED NOTE HNO ID: [id number] Author: Marleen Blank RN Service: ? Author Type: Registered Nurse Type: ED Notes Filed: 06/16/2022 6:59 AM Note Text: Bed: 19-ED Expected date: Expected time: Means of arrival: Comments: Normal [facility] ED NOTE HNO ID: [id number] Author: Nancy Scott RN Service: Emergency Medicine Author Type: Registered Nurse Type: ED Notes Filed: 06/16/2022 6:44 AM Note Text: CT delayed due to pt needing to move rooms because of bed bugs. Normal [facility] ED NOTE HNO ID: [id number] Author: Nancy Scott RN Service: Emergency Medicine Author Type: Registered Nurse Type: ED Notes Filed: 06/16/2022 3:09 AM Note Text: CT form faxed, ptt sent [facility] ED NOTE HNO ID: [id number] Author: Nancy Scott RN Service: Emergency Medicine Author Type: Registered Nurse Type: ED Notes Filed: 06/16/2022 3:02 AM Note Text: US notified [facility] ED NOTE HNO ID: [id number] Author: Nancy Scott RN Service: Emergency Medicine Author Type: Registered Nurse Type: ED Notes Filed: 06/16/2022 2:48 AM Note Text: CT notified [facility] ED NOTE HNO ID: [id number] Author: Nancy Scott RN Service: Emergency Medicine Author Type: Registered Nurse Type: ED Notes Filed: 06/16/2022 2:43 AM Note Text: Labs sent [facility] ED NOTE HNO ID: [id number] Author: Davian Chen RN Service: ? Author Type: Registered Nurse Type: ED Notes Filed: 06/16/2022 2:06 AM Note Text: Bed: 15-ED Expected date: Expected time: Means of arrival: Comments: ramesh [facility] ED PROV NOTEon 06-16-2022 ED PROV NOTE HNO ID: [id number] Author: Vanessa Trevizo DO Service: Emergency Medicine [...] (more content not included)... Normal [facility] ED PROV NOTE HNO ID: [id number] Author: Vanessa Trevizo DO Service: Emergency Medicine [...] Trevizo DO 06/16/22 0323 Normal [facility] EKGon 06-16-2022 Electrocardiogram Ventricular Rate : 1 13 BPM Atrial Rate : 122 BPM QRS Duration : 100 ms Q-T Interval : 282 ms QTC Calculation(Bazett) : 386 ms Calculated R [place] : 46 degrees Calculated T [place] : -40 degrees ATRIAL FIBRILLATION WITH RAPID VENTRICULAR RESPONSE ABNORMAL QRS-T ANGLE, CONSIDER PRIMARY T WAVE ABNORMALITY ABNORMAL ECG NO PREVIOUS ECGS AVAILABLE Confirmed by MD LEONE CAROL ([id number]) on 06/16/2022 6:43:12 PM NAME : MEL GUADARRAMA PID : [id number] : 1940 Gender : Female Race : ORD : Procedure Date : Jun 16 2022 07:37:07 Edit Date : Jun 16 2022 18:43:17 Diagnosis: ATRIAL FIBRILLATION WITH RAPID VENTRICULAR RESPONSE ABNORMAL QRS-T ANGLE, CONSIDER PRIMARY T WAVE ABNORMALITY ABNORMAL ECG NO PREVIOUS ECGS AVAILABLE Confirmed by MD LEONE CAROL ([id number]) on 06/16/2022 6:43:12 PM Test Reason : Location : 4 : AKED 19 Overread By : MD LEONE CAROL Edited By : MD LEONE CAROL Referred By : , Acquired by : PATRICIA MOE Normal [facility] HIGH SENSITIVITY TROPONIN T (INITIAL)on 06-16-2022 HIGH SENSITIVITY CHRISTOPHER 34 ng/L High <12 [facility] Comment on above: Order Comment: Rhina mason Type: BLOOD SPECIMENOrdering Facility: [facility] Address: [address] [place] [address] Result Comment: When assessing risk for acute [...] MACE. Performed By: #### 3 2355-0 #### [facility] CLIA [id number] [address] STATES OF [facility] HIGH SENSITIVITY TROPONIN T (SECOND)on 06-16-2022 HIGH SENSITIVITY CHRISTOPHER 28 ng/L High <12 [facility] Comment on above: Order Comment: Rhina mason Type: BLOOD SPECIMENOrdering Facility: [facility] Address: [address] [place] [address] Result Comment: When assessing risk for acute [...] 30 day MACE. Performed By: #### L [id number] ####[facility]ATORYCLIA [id number] [address] [place] HIGH SENSITIVITY TROPONIN T (THIRD) 3 HRS AFTER INITIALon 06-16-2022 HIGH SENSITIVITY CHRISTOPHER 23 ng/L High <12 [facility] Comment on above: Order Comment: Rhina mason Type: BLOOD SPECIMENOrdering Facility: [facility] Address: [address] [place] [address] Result Comment: When assessing risk for acute [...] 30 day MACE. Performed By: #### L [id number] ####[facility]ORATORYCLIA [id number] [place] [id number] [place] HISTORY PHYSICALon HISTORY PHYSICAL HNO ID: [id number] Author: Kristen Jones APRN.CNP Service: Hospital Medicine Author Type: Nurse Practitioner Type: HANDP Filed: 06/16/2022 1:27 PM Note Text: DEPARTMENT OF HOSPITAL MEDICINE HISTORY AND PHYSICAL EXAM SERVICE DATE: 06/16/2022 SERVICE TIME: 12:02 PM Primary Care Physician: Dr. Evans Admitting Provider: Kristen Jones APRN.CNP NIGHT AND WEEKEND COVERAGE: After 7pm, please call cross cover pager #[phone] Subjective CHIEF COMPLAINT: Left leg pain, discoloration [...] this patient has 2 charts. Mel Garcia [id number] and Mel Castillo [id number]. PAST MEDICAL HISTORY Diagnosis Date Acute bacterial [...] pain Gastrointestinal: + diarrhea x 1 MANAGER ACQUISITION Genitourinary: Denies dysuria Musculoskeletal: + left leg [...] (more content not included)... Normal [facility] Magnesium [Mass/Vol] 2.4 mg/dL High 1.7-2.3 [facility] Comment on above: Order Comment: Speci men Type: BLOOD SPECIMENOrdering Facility: [facility] Address: [address] [place] [address] Performed By: #### 3 3959-8, 93573-7, 53406-7, 27091-9 ####[facility]ORYCLIA [id number] [address] OF [facility] NT-proBNP [facility]16 Natriuretic peptide.B prohormone N-Terminal [Mass/Vol] 4156 pg/mL High <450 [facility] Comment on above: Order Comment: Speci men Type: BLOOD SPECIMEN [facility] Address: [address] [place] [address] Performed By: #### T SCR #### [facility] CLIA [id number] [address] STATES [place] NURSING PROGon 06-16-2022 NURSING PROG HNO ID: [id number] Author: Kayden José RN Service: Trauma Author [...] RECEIVING NURSE. NIKKY FRAGA. Normal [facility] PT panel Coag (PPP)on 2021 INR Coag (PPP) [Relative time] 1.1 {INR} Normal 0.9-1.3 [facility] Comment on above: Order Comment: Specrobson mason Type: BLOOD SPECIMENOrdering Facility: [facility] Address: [address] [place], [place] [address] Result Comment: Mayra min K Antagonist (VKA) Therapeutic Range: INR 2 to 3 (Target INR of 2.5) Note: For patients treated with VKA drugs, such as warfarin, the [place] [employer] 2012 Guideline recommends [...] Chest 2012, 141:7S-47S Daren RA et al. [facility] 2017, 70: 252-289 Performed By: #### 3 4528-0, 35832-8 ####[facility]ATORYCLIA [id number] [address] [place] PT Coag (PPP) [Time] 11.3 s Normal 9.7-13.0 [facility] Comment on above: Order Comment: Rhina mason Type: BLOOD SPECIMENOrdering Facility: [facility] Address: [address] [place] [address] Performed By: #### 3 4528-0, 97815-4 ####[facility]ATORYCLIA [id number] [address] [place] Procalcitonin SerPl-mCncon 1 08-16-2021 Procalcitonin [Mass/Vol] 0.19 ng/mL High <0.09 [facility] Comment on above: Order Comment: Speci men Type: BLOOD SPECIMEN [facility] Address: [address] [place], [place] [address] [phone] Result Comment: For a guided interpretation of test results, please visit the Change in Procalcitonin Calculator, [email or web address]. Performed By: #### T SCR #### [facility] CLIA [id number] [address] [place] SARS-CoV-2 RNA Resp Ql OXANA+p robeon 06-16-2022 SARS-CoV-2 (COVID-19) RNA OXANA+probe Ql (Resp) COVID 19 RESULT: SARS-CoV-2 (Agent of COVID-19) Detected by RT-PCR or equivalent method. This test has been authorized by FDA under an Emergency Use Authorization (EUA). Normal [facility] Comment on above: Performed By: #### 9 4500-6 #### [facility] CLIA [id number] [address] [place] [address] [place] US DVT LOWER LTon 06-16-2022 US DVT LOWER LT * * *Final Report* * * DATE OF EXAM: Jun 16 2022 5:04AM [facility] 1006 - US DVT LOWER LT [...] Torres MD on 515 via verbal communication. Assistant Plant Controller: DEVEN Transcribe Date/Time: Jun 16 2022 5:07A Dictated by : SKIP NOEL MD This examination was interpreted and the report reviewed and electronically signed by: SKIP NOEL MD on Jun 16 2022 5:17AM EST [id number] Normal [facility] aPTT PPPon 06-16-2022 aPTT Coag (PPP) [Time] 74.2 s High 23.0-32.4 [facility] Comment on above: Order Comment: Specrobson mason Type: BLOOD SPECIMENOrdering Facility: [facility] Address: [address] [address] Performed By: #### 1 4979-9 ####[facility]ORYCLIA [id number] [address] STATES OF [facility] aPTT Coag (PPP) [Time] 134.7 s High 23.0-32.4 [facility] Comment on above: Order Comment: Rhina mason Type: BLOOD SPECIMENOrdering Facility: [facility] Address: [address] [address] Performed By: #### 1 4979-9 ####[facility]ORYCLIA [id number] [address] aPTT Coag (PPP) [Time] s High 23.0-32.4 [facility] Comment on above: Order Comment: Speci isabella Type: BLOOD SPECIMENOrdering Facility: [facility] Address: [address] [place] [address] Performed By: #### 1 4979-9 ####[facility]ORATORYCLIA [id number] [address] aPTT Coag (PPP) [Time] 21.7 s Low 23.0-32.4 [facility] Comment on above: Order Comment: Speci men Type: BLOOD SPECIMENOrdering Facility: [facility] Address: [address] [place] [address] Performed By: #### 3 4528-0, 05763-6 ####[facility]THCL[facility] [id number] [address] CULTURE AND STAIN - TISSUEon 03-10-2020 [...] 0.12 S Rifampin(AGATA) <= 0.5 S Normal [facility] Comment on above: Performed By: #### C XTIS #### [place] [place], [place] [facility] [address] [place], [place] [id number] #### C/DAMIÁN #### [address] [place] [address] [place], [place] CR Finger(s) Min 2 Views Rig hton 03-07-2020 CR Finger(s) Min 2 Views Right Patient Name: MEL POP Diagnostic Radiology Exam Date/Time 03/06/2020 10:30:00 EDT Exam CR Finger(s) Min 2 Views Right Ordering Physician MD GUSTAVO, JAYLA Stoll Accession Number [id number] CPT4 Codes 13325 () Reason For Exam pain Report Right [...] was communicated to JAYLA MCMAHAN via the [employer] Critical Result system on 03/07/2020 8:07 PM EDT, Message ID [id number]. Report Dictated on Final Dictating Physician: MD PERRY DIANE Signed Date and Time: 03/07/2020 8:07 pm Signed by: MD ORLANDO, SHAHLA Transcribed Date and Time: 03/07/2020 8:08 Normal [facility] CULTURE ANAEROBEon 0 CULTURE ANAEROBE CULTURE ANAEROBE --> Status: F No growth of anaerobes at 5 days. STAIN GRAM --> Status: F Few polymorphonuclear cells/lpf. No organisms seen. No organisms seen. Normal [facility] Comment on above: Performed By: #### C XTIS #### [address] [place] [place] [address] [place] [address] [place], [place] [id number] #### C/DAMIÁN #### [address] [place] [address] Vital Signs Date Time Vital Sign Value Performing Clinician Facility 03-15-2025 11:06-0400 Body height 160 cm Andre Berry MD Work Phone: [facility] 03-15-2025 11:06-0400 Body mass index (BMI) [Ratio] 27.1 kg/m2 Andre Berry MD Work Phone: [facility] 03-15-2025 11:06-0400 Body temperature 97.39 [degF] Andre Berry MD Work Phone: [facility] 03-15-2025 11:06-0400 Body weight 69.4 kg Andre Berry MD Work Phone: [facility] Comment on above: unable to stand for ht and wt today 03-15-2025 11:06-0400 Diastolic blood pressure 48 mm[Hg] Andre Berry MD Work Phone: [facility] 03-15-2025 11:06-0400 Heart rate 45 /min Andre Berry MD Work Phone: [facility] 03-15-2025 11:06-0400 SaO2% (BldA) [Mass fraction] 100 % Andre Berry MD Work Phone: [facility] 03-15-2025 11:06-0400 Systolic blood pressure 97 mm[Hg] Andre Berry MD Work Phone: [facility] 12-24-2024 14:45-0400 Body mass index (BMI) [Ratio] 27.1 kg/m2 Kristyn Blankenship MD Work Phone: [facility] 12-24-2024 14:45-0400 Body weight 69.4 kg Kristyn Blankenship MD Work Phone: [facility] 12-05-2024 10:20-0400 Body height 160 cm Kristyn Blankenship MD Work Phone: [facility] 12-05-2024 10:20-0400 Body mass index (BMI) [Ratio] 29.23 kg/m2 Kristyn Blankenship MD Work Phone: [facility] 12-05-2024 10:20-0400 Body weight 74.84 kg Kristyn Blankenship MD Work Phone: [facility] 12-05-2024 10:20-0400 Diastolic blood pressure 78 mm[Hg] Kristyn Blankenship MD Work Phone: [facility] 12-05-2024 10:20-0400 Heart rate 78 /min Kristyn Blankenship MD Work Phone: [facility] 12-05-2024 10:20-0400 Respiratory rate 18 /min Kristyn Blnakenship MD Work Phone: [facility] 12-05-2024 10:20-0400 SaO2% (BldA) [Mass fraction] 94 % Kristyn Blankenship MD Work Phone: [facility] 12-05-2024 10:20-0400 Systolic blood pressure 102 mm[Hg] Kristyn Blankenship MD Work Phone: [facility] 11-22-2024 13:45-0400 Diastolic blood pressure 54 mm[Hg] Kristyn Blankenship MD Work Phone: [facility] 11-22-2024 13:45-0400 Heart rate 58 /min Kristyn Blankenship MD Work Phone: [facility] 11-22-2024 13:45-0400 Respiratory rate 18 /min Kristyn Blankenship MD Work Phone: [facility] 11-22-2024 13:45-0400 SaO2% (BldA) [Mass fraction] 95 % Kristyn Blankenship MD Work Phone: [facility] 11-22-2024 13:45-0400 Systolic blood pressure 139 mm[Hg] Kristyn Blankenship MD Work Phone: [facility] 11-22-2024 13:15-0400 Body temperature 97.11 [degF] Kristyn Blankenship MD Work Phone: [facility] 11-22-2024 08:25-0400 Body height 160 cm Kristyn Blankenship MD Work Phone: [facility] 11-22-2024 08:25-0400 Body mass index (BMI) [Ratio] 29.23 kg/m2 Kristyn Blankenship MD Work Phone: [facility] 11-22-2024 08:25-0400 Body weight 74.84 kg Kristyn Blankenship MD Work Phone: [facility] 11-05-2024 15:42-0400 Body height 160 cm Kristyn Blankenship MD Work Phone: [facility] 11-05-2024 15:42-0400 Body mass index (BMI) [Ratio] 29.23 kg/m2 Kristyn Blankenship MD Work Phone: [facility] 11-05-2024 15:42-0400 Body weight 74.84 kg Kristyn Blankenship MD Work Phone: [facility] 11-05-2024 15:42-0400 Diastolic blood pressure 64 mm[Hg] Kristyn Blankenship MD Work Phone: [facility] 11-05-2024 15:42-0400 Heart rate 65 /min Kristyn Blankenship MD Work Phone: [facility] 11-05-2024 15:42-0400 Respiratory rate 18 /min Kristyn Blankenship MD Work Phone: [facility] 11-05-2024 15:42-0400 SaO2% (BldA) [Mass fraction] 98 % Kristyn Blankenship MD Work Phone: [facility] 11-05-2024 15:42-0400 Systolic blood pressure 122 mm[Hg] Kristyn Blankenship MD Work Phone: [facility] 08-22-2024 10:32-0500 Body height 160 cm Henok Darlyn PA-C Work Phone: [facility] 08-22-2024 10:32-0500 Body mass index (BMI) [Ratio] 29.23 kg/m2 Henok Darlyn PA-C Work Phone: [facility] 08-22-2024 10:32-0500 Body weight 74.84 kg Henok Darlyn PA-C Work Phone: [facility] 08-22-2024 10:32-0500 Diastolic blood pressure 62 mm[Hg] Henok Darlyn PA-C Work Phone: [facility] 08-22-2024 10:32-0500 Respiratory rate 18 /min Henok Darlyn PA-C Work Phone: [facility] 08-22-2024 10:32-0500 Systolic blood pressure 104 mm[Hg] Henok Darlyn PA-C Work Phone: [facility] 08-16-2024 07:19-0500 Body temperature 97.59 [degF] Mariana King DO Work Phone: [facility] 08-16-2024 07:19-0500 Diastolic blood pressure 66 mm[Hg] Mariana King DO Work Phone: [facility] 08-16-2024 07:19-0500 Heart rate 85 /min Mariana King DO Work Phone: [facility] 08-16-2024 07:19-0500 Respiratory rate 18 /min Mariana King DO Work Phone: [facility] 08-16-2024 07:19-0500 SaO2% (BldA) [Mass fraction] 94 % Mariana King DO Work Phone: [facility] 08-16-2024 07:19-0500 Systolic blood pressure 135 mm[Hg] Mariana King DO Work Phone: [facility] 08-03-2024 08:32-0500 Body height 162 cm Mariana King DO Work Phone: [facility] 08-03-2024 08:32-0500 Body mass index (BMI) [Ratio] 28.58 kg/m2 Mariana King DO Work Phone: [facility] 08-03-2024 08:32-0500 Body weight 75 kg Mariana King DO Work Phone: [facility] 07-07-2024 06:03-0500 Body temperature 97.7 [degF] Wm Mudrakola DO Work Phone: [facility] 07-07-2024 06:03-0500 Diastolic blood pressure 67 mm[Hg] Wm Mudrakola DO Work Phone: [facility] 07-07-2024 06:03-0500 Heart rate 69 /min Wm Mudrakola DO Work Phone: [facility] 07-07-2024 06:03-0500 Respiratory rate 12 /min Wm Mudrakola DO Work Phone: [facility] 07-07-2024 06:03-0500 SaO2% (BldA) [Mass fraction] 94 % Wm Mudrakola DO Work Phone: [facility] 07-07-2024 06:03-0500 Systolic blood pressure 149 mm[Hg] Wm Mudrakola DO Work Phone: [facility] 07-05-2024 10:00-0500 Body height 162.6 cm Wm Mudrakola DO Work Phone: [facility] 07-05-2024 10:00-0500 Body mass index (BMI) [Ratio] 27.46 kg/m2 Wm Mudrakola DO Work Phone: [facility] 07-05-2024 10:00-0500 Body weight 72.58 kg Wm Nunes DO Work Phone: [facility] 05-14-2024 15:34-0400 Body height 162.6 cm Jared Evans MD Work Phone: [facility] 05-14-2024 15:34-0400 Body mass index (BMI) [Ratio] 25.23 kg/m2 Jared Evans MD Work Phone: [facility] 05-14-2024 15:34-0400 Body weight 66.68 kg Jared Evans MD Work Phone: [facility] 04-25-2024 13:39-0400 Body height 162.6 cm Henok Hernandez PA-C Work Phone: [facility] 04-25-2024 13:39-0400 Body mass index (BMI) [Ratio] 25.23 kg/m2 Henok Hernandez PA-C Work Phone: [facility] 04-25-2024 13:39-0400 Body weight 66.68 kg Henok Mary PA-C Work Phone: [facility] 04-25-2024 13:39-0400 Diastolic blood pressure 66 mm[Hg] Henok Hernandez PA-C Work Phone: [facility] 04-25-2024 13:39-0400 Heart rate 98 /min Henok Hernandez PA-C Work Phone: [facility] 04-25-2024 13:39-0400 Respiratory rate 18 /min Henok Hernandez PA-C Work Phone: [facility] 04-25-2024 13:39-0400 SaO2% (BldA) [Mass fraction] 95 % Henok Hernandez PA-C Work Phone: [facility] 04-25-2024 13:39-0400 Systolic blood pressure 110 mm[Hg] Henok Hernandez PA-C Work Phone: [facility] 04-13-2024 08:04-0400 Heart rate 92 /min Winifred Cornell DO Work Phone: [facility] 04-13-2024 07:49-0400 Body temperature 97.2 [degF] Winifred Cornell DO Work Phone: [facility] 04-13-2024 07:49-0400 Diastolic blood pressure 89 mm[Hg] Winifred Cornell DO Work Phone: [facility] 04-13-2024 07:49-0400 Respiratory rate 20 /min Winifred Cornell DO Work Phone: [facility] 04-13-2024 07:49-0400 SaO2% (BldA) [Mass fraction] 98 % Winifred Cornell DO Work Phone: [facility] 04-13-2024 07:49-0400 Systolic blood pressure 156 mm[Hg] Winifred Cornell DO Work Phone: [facility] 04-03-2024 17:52-0400 Body height 162.6 cm Winifred Cornell DO Work Phone: [facility] 04-03-2024 17:52-0400 Body mass index (BMI) [Ratio] 27.38 kg/m2 Winifred Cornell DO Work Phone: [facility] 04-03-2024 17:52-0400 Body weight 72.35 kg Winifred Cornell DO Work Phone: [facility] 07-27-2023 14:23-0500 Body height 162.6 cm Ming Weinberg MD Work Phone: [facility] 07-27-2023 14:23-0500 Body mass index (BMI) [Ratio] 27.29 kg/m2 Ming Weinberg MD Work Phone: [facility] 07-27-2023 14:23-0500 Body weight 72.12 kg Ming Weinberg MD Work Phone: [facility] 05-14-2022 15:01-0400 Diastolic blood pressure 84 mm[Hg] Jared Slabaugh PA-C Work Phone: [facility] 05-14-2022 15:01-0400 Systolic blood pressure 154 mm[Hg] Jaredserina Carlingh PA-C Work Phone: [facility] 05-14-2022 14:32-0400 Body height 162.6 cm Jared Velazquez PA-C Work Phone: [facility] 05-14-2022 14:32-0400 Body weight 72.58 kg Jared Velazquez PA-C Work Phone: [facility] 05-14-2022 14:32-0400 Heart rate 71 /min Jared Velazquez PA-C Work Phone: [facility] 05-14-2022 14:32-0400 Respiratory rate 16 /min Jared Velazquez PA-C Work Phone: [facility] 05-14-2022 14:32-0400 SaO2% (BldA) [Mass fraction] 98 % Jared Velazquez PA-C Work Phone: [facility] 03-07-2020 09:57-0400 Body Temperature 98.71 [degF] [facility] [place] 03-07-2020 09:57-0400 BP Diastolic 64 mm[Hg] [facility] [place] 03-07-2020 09:57-0400 BP Systolic 161 mm[Hg] [facility] [place] 03-07-2020 09:57-0400 Pulse (Heart Rate) 77 /min [facility] [place] 03-07-2020 09:57-0400 Pulse Oximetry 96 % [facility] [place] , [place] 03-07-2020 08:32-0400 Respiratory Rate 14 /min [facility] [place] 02-08-2020 20:50-0400 Body Temperature 97.5 [degF] Maryuri [facility] 02-08-2020 20:50-0400 BP Diastolic 81 mm[Hg] [facility] [place] 02-08-2020 20:50-0400 BP Systolic 193 mm[Hg] [facility] [place] 02-08-2020 20:50-0400 Pulse (Heart Rate) 68 /min Maryuri Mcfadden [facility], [place] 02-08-2020 20:50-0400 Pulse Oximetry 97 % [facility] , [place] 02-08-2020 20:50-0400 Respiratory Rate 16 /min [facility] [place] Encounters Encounter Date Encounter Type Care Provider Facility Start: 05-27-2025 ambulatory Megan EVERETT Faci lity:[facility] Start: 05-13-2025 ambulatory Megan EVERETT Faci lity:[facility] Start: 05-09-2025 ambulatory Megan EVERETT Faci lity:[facility] Start: 05-06-2025 ambulatory Megan EVERETT Faci lity:[facility] Start: 04-29-2025 End: 04-29-2025 ambulatory Megan EVERETT Facility:[facility] Start: 04-04-2025 End: 04-04-2025 ambulatory Megan EVERETT Facility:[facility] Start: 04-02-2025 ambulatory Megan EVERETT Faci lity:[facility] Start: 03-28-2025 End: 03-28-2025 ambulatory Megan EVERETT Facility:[facility] Start: 03-15-2025 End: 03-15-2025 Office outpatient visit 25 minutes Andre Patel MD Work Phone: [facility] [place] Comment on above: Acute deep vein thro mbosis (DVT) of proximal vein of lower extremity, unspecified laterality (HCC) (Primary Dx) Start: 03-15-2025 End: 03-15-2025 ambulatory MEGAN MONTOYA [facility] Start: 03-04-2025 End: 03-04-2025 ambulatory Megan EVERETT Facility:[facility] Start: 02-25-2025 ambulatory Megan EVERETT Faci lity:[facility] Start: 02-18-2025 ambulatory Megan EVERETT Faci lity:[facility] Start: 02-15-2025 ambulatory Megan Luanneros OLS Faci lity:[facility] Start: 02-11-2025 End: 02-11-2025 ambulatory Megan Luannesaros OLS Facility:[facility] Start: 02-07-2025 End: 02-07-2025 ambulatory Megan Luannesaros OLS Facility:[facility] Start: 02-04-2025 ambulatory Megan Luannesaros OLS Faci lity:[facility] Start: 01-31-2025 ambulatory Megan Luannesaros OLS Faci lity:[facility] Start: 01-28-2025 ambulatory Megan Lunanesaros OLS Faci lity:[facility] Start: 01-25-2025 ambulatory Megan Katsaros OLS Faci lity:[facility] Start: 01-22-2025 End: 01-23-2025 ambulatory Megan Luannesaros OLS Facility:[facility] Start: 01-21-2025 End: 01-21-2025 ambulatory Megan Luannesaros OLS Facility:[facility] Start: 01-17-2025 End: 01-17-2025 ambulatory Megan Luannesaros OLS Facility:[facility] Start: 01-16-2025 End: 01-16-2025 ambulatory Megan Luannesaros OLS Facility:[facility] Start: 01-15-2025 End: 01-15-2025 ambulatory Megan Luannesaros OLS Facility:[facility] Start: 01-07-2025 ambulatory Megan Luannesaros OLS Faci lity:[facility] Start: 01-02-2025 End: 01-02-2025 Orders Only Namrata Christensen [facility] Comment on above: 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) Right retinal detach ment (Primary Dx); Hemorrhagic choroidal detachment of right eye; Pseudophakia, right eye Start: 12-24-2024 End: 12-24-2024 ambulatory MEGAN MONTOYA [facility] Start: 12-24-2024 End: 12-24-2024 Office outpatient visit 15 minutes Kristyn Blankenship MD Work Phone: [facility] [place] Comment on above: Aftercare following surgery of the circulatory system (Primary Dx); PAD (peripheral artery disease) (HCC) Start: 12-13-2024 End: 02-12-2025 Follow-up encounter Shivani Kunz SEBASTIAN Rayo CNP Work Phone: [facility] [place] Comment on above: Vascular US lower ex tremity arterial duplex right with MICHELLE Start: 12-13-2024 End: 12-13-2024 ambulatory MEGAN PARKSFOZIA [facility] Start: 12-13-2024 End: 12-13-2024 Subsequent hospital visit by physician Kristyn Blankenship MD Work Phone: [facility] Comment on above: Skin ulcer of toe of right foot, limited to breakdown of skin (HCC); PAD (peripheral artery disease) (HCC); Aftercare following surgery of the circulatory system Start: 12-05-2024 End: 12-05-2024 [facility] Start: 12-05-2024 End: 12-05-2024 Office outpatient visit 10 minutes Kristyn Blankenship MD Work Phone: [facility] [place] Comment on above: Skin ulcer of toe of right foot, limited to breakdown of skin (HCC) (Primary Dx); PAD (peripheral artery disease) (HCC); Aftercare following surgery of the circulatory system Start: 11-22-2024 End: 11-22-[address] 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) Pre-op evaluation (P rimary Dx) Start: 11-09-2024 End: 11-13-2024 Preprocedural examination done Henok ARIZMENDI-C [facility] Work Phone: Start: 11-05-2024 End: 11-05-2024 ambulatory JARED EVANS [facility] Start: 11-05-2024 End: 11-05-2024 Office outpatient visit 25 minutes Kristyn Blankenship MD Work Phone: [facility] Comment on above: PAD (peripheral aidee ry disease) (HCC) (Primary Dx); Skin ulcer of toe of right foot, limited to breakdown of skin (HCC) Start: 10-08-2024 End: 10-08-2024 ambulatory Megan EVERETT [facility] Work Phone: Start: 10-08-2024 End: 10-08-2024 Departed Referred Megan BISWAS Start: 10-08-2024 Registered Referred Megan BISWAS Start: 10-08-2024 End: 10-08-2024 ambulatory Megan EVERETT Facility:[facility] Start: 10-01-2024 End: 10-01-2024 Patient encounter procedure Savana Lopez MD Work Phone: Ophthalmology Comment on above: 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 Start: 09-17-2024 End: 09-17-2024 ambulatory Megan EVERETT [facility] Work Phone: Start: 09-17-2024 End: 09-17-2024 Departed Referred Megan BISWAS Start: 09-17-2024 Registered Referred Megan BISWAS Start: 09-17-2024 End: 09-17-2024 ambulatory Megan EVERETT Facility:[facility] Start: 09-10-2024 End: 09-10-2024 ambulatory Megan EVERETT [facility] Work Phone: Start: 09-10-2024 End: 09-10-2024 Departed Referred Megan BISWAS Start: 09-10-2024 Registered Referred Megan BISWAS Start: 09-10-2024 End: 09-10-2024 ambulatory Megan EVERETT Facility:[facility] Start: 09-05-2024 End: 09-05-2024 ambulatory SAVANA LOPEZ Facility:[facility] Start: 09-05-2024 End: 09-05-2024 Patient encounter procedure Savana Lopez MD Work Phone: Ophthalmology Comment on above: Postoperative eye st ate; Hemorrhagic choroidal detachment of right eye; Pseudophakia, right eye; Subluxation of right lens Start: 09-03-2024 End: 09-03-2024 ambulatory Megan EVERETT [facility] Work Phone: Start: 09-03-2024 End: 09-03-2024 Departed Referred Megan BISWAS Start: 09-03-2024 Registered Referred Megan BISWAS Start: 09-03-2024 End: 09-03-2024 ambulatory Megan EVERETT Facility:[facility] Start: 08-22-2024 End: 08-22-[address] [facility] Start: 08-22-2024 End: 08-22-2024 Office outpatient visit 15 minutes Henok Lantigua PA-C Work Phone: [facility] Comment on above: Acute deep vein thro mbosis (DVT) of iliac vein of right lower extremity (HCC) (Primary Dx); PAD (peripheral artery disease) (HCC) Start: 08-20-2024 End: 08-20-2024 ambulatory Megan EVERETT [facility] Work Phone: Start: 08-20-2024 End: 08-20-2024 Departed Referred Megan Luannevictoriano [facility] Start: 08-20-2024 End: 08-20-2024 ambulatory Megan EVERETT Facility:[facility] Start: 08-03-2024 End: 08-03-2024 Subsequent hospital visit by physician [facility] Exam Room [address] [facility] [address] Comment on above: Arrived Start: 08-03-2024 End: 08-16-2024 ambulatory [facility] Start: 08-03-2024 End: 08-16-2024 Emergency department patient visit Mariana King DO Work Phone: [facility] Comment on above: Aspiration pneumonit is (CMS/HCC) (HCC) (Primary Dx); Vomiting and diarrhea; LORENZA (acute kidney injury) (HCC) Start: 08-01-2024 End: 08-01-2024 ambulatory SAVANA A MAMMO Facility:[facility] Start: 08-01-2024 End: 08-01-2024 Patient [...] ambulatory SAVANA A MAMMO Facility: [facility] Start: 07-23-2024 End: 07-23-2024 ambulatory SAVANA A MAMMO Facility:[facility] Start: 07-23-2024 End: 07-23-2024 Patient encounter procedure Savana Lopez MD Work Phone: Ophthalmology Comment on above: Postoperative eye st ate; Hemorrhagic choroidal detachment of right eye; Pseudophakia, right eye; Subluxation of right lens Start: 07-16-2024 End: 07-16-2024 Evaluation and management of inpatient Savana Lpoez MD Work Phone: Ophthalmology Comment on above: Postoperative eye st ate (Primary Dx); Hemorrhagic choroidal detachment of right eye; Pseudophakia, right eye; Subluxation of right lens Start: 07-12-2024 End: 07-12-2024 Evaluation and management of inpatient SELF Facility:[facility] Start: 07-12-2024 End: 07-12-2024 Orders [...] and management of inpatient SELF Facility:[facility] Start: 07-09-2024 End: 07-09-2024 Unlisted [...] Evaluation and management of inpatient RED GRESHAMNTIRE Facility:[facility] Start: 07-07-2024 Emergency department patient visit PROVIDER NOT IN SYSTEM Facility:[facility] Start: 07-06-2024 End: 07-06-2024 Telephone encounter Ryan Elizondo MD Work Phone: Ophthalmology Start: 07-05-2024 End: 07-07-2024 ambulatory RED HENDERSON [facility] Start: 07-05-2024 End: 07-07-2024 Emergency department patient visit Wm Nunes DO Work Phone: [facility] Progressive [facility] Unit PCU 3W Comment on above: Vision loss of right eye (Primary Dx); Acute intractable headache, unspecified headache type; Visual disturbance, subjective Start: 06-19-2024 End: 07-03-2024 ambulatory DEVIKA LEUNG Facility:[facility] Start: 06-19-2024 End: 07-03-2024 Subsequent hospital visit by physician Devika Leung DO Work Phone: [facility] Comment on above: [I63.9] - Cerebral i nfarction Start: 06-10-2024 End: 06-19-2024 Evaluation and management of inpatient TORSTEN SILVA Facility:[facility] Start: 05-22-2024 End: 05-22-[address] [facility] Start: 05-21-2024 End: 05-21-2024 ambulatory HARMONY [facility] Start: 05-21-2024 End: 05-21-2024 Anticoagulant drug monitoring [facility] Work Phone: [facility] Comment on above: Atrial fibrillation, unspecified type (HCC); Acute venous embolism and thrombosis of deep vessels of proximal end of right lower extremity (HCC) Start: 05-14-2024 End: 05-14-2024 Subsequent hospital visit by physician Jared Evans MD Work Phone: [facility] Non-Invasive Cardiology Comment on above: Paroxysmal atrial fi brillation (HCC) Start: 05-14-2024 End: 05-14-[address] [facility] Start: 05-09-2024 End: 05-09-[address] [facility] Start: 05-09-2024 End: 05-09-2024 Anticoagulant drug monitoring Patty Duggan [facility] Work Phone: [facility] Anticoagulation Management Service Comment on above: Atrial fibrillation, unspecified type (HCC); Acute venous embolism and thrombosis of deep vessels of proximal end of right lower extremity (HCC) Start: 05-01-2024 End: 05-01-[address] [facility] Start: 05-01-2024 End: 05-01-2024 Anticoagulant drug monitoring Won Tipton RN [facility] Anticoagulation Management Service Comment on above: Atrial fibrillation, unspecified type (HCC); Acute venous embolism and thrombosis of deep vessels of proximal end of right lower extremity (HCC) Start: 04-27-2024 End: 04-27-2024 Refill Phyllis Aguilera RN Work Phone: [facility] Anticoagulation Management Service Comment on above: Deep vein thrombosis (DVT) of lower extremity, unspecified chronicity, unspecified laterality, unspecified vein (HCC); Atrial fibrillation, unspecified type (HCC); Acute venous embolism and thrombosis of deep vessels of proximal end of right lower extremity (HCC) Start: 04-25-2024 End: 04-25-2024 Office outpatient visit 15 minutes Henok Hernandez PA-C Work Phone: [facility] Comment on above: Acute deep vein thro mbosis (DVT) of iliac vein of right lower extremity (HCC) (Primary Dx); PAD (peripheral artery disease) (HCC) Start: 04-25-2024 End: 04-25-[address] [facility] Start: 04-23-2024 End: 04-23-[address] [facility] Start: 04-20-2024 End: 07-20-2024 Transcribe Orders Jared Evans MD Work Phone: [facility] Central Scheduling Comment on above: Paroxysmal atrial fi brillation (HCC) (Primary Dx) Start: 04-19-2024 End: 04-19-[address] [facility] Start: 04-19-2024 End: 04-19-2024 Anticoagulant drug monitoring Marybeth Rahman [facility] Anticoagulation Management Service Comment on above: Atrial fibrillation, unspecified type (HCC); Acute venous embolism and thrombosis of deep vessels of proximal end of right lower extremity (HCC) Start: 04-16-2024 End: 04-16-2024 ambulatory ANTHONY YEE [facility] Start: 04-14-2024 End: 04-14-2024 Anticoagulant drug monitoring Ulices Orr PharmD [facility] Pharm[facility] Comment on above: Deep vein thrombosis (DVT) of lower extremity, unspecified chronicity, unspecified laterality, unspecified vein (HCC) (Primary Dx) Start: 04-03-2024 End: 04-13-2024 Evaluation and management of inpatient Winifred Cornell DO Work Phone: [facility] Medical Unit 4N Comment on above: Ischemic leg (Primar y Dx); Right leg pain; Peripheral arterial disease (HCC); Right leg weakness; Atrial fibrillation, unspecified type (HCC) Start: 07-27-2023 End: 07-27-2023 Office outpatient new 30 minutes Ming Weinberg MD Work Phone: [facility] Comment on above: 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) Start: 06-15-2023 End: 06-15-2023 Subsequent hospital visit by physician Jared Evans MD Work Phone: [facility] MRI Comment on above: Abnormal findings on diagnostic imaging of other specified body structures; Pain in left leg Start: 06-01-2023 Transcribe Orders Jared [facility] MD [facility] Comment on above: Abnormal findings on diagnostic imaging of other specified body structures (Primary Dx); Pain in left leg Start: 05-24-2023 End: 05-24-2023 Subsequent hospital visit by physician Jared Evans MD Work Phone: [facility] US Comment on above: Other specified soft tissue disorders Start: 05-23-2023 Transcribe Orders Jared Evans MD [facility] Comment on above: Other specified soft tissue disorders (Primary Dx) Start: 03-08-2023 End: 03-08-2023 Subsequent hospital visit by physician Jared Evans MD Work Phone: [facility] CT Comment on above: Localized swelling, mass and lump, neck Start: 02-28-2023 Transcribe Orders Jared Evans MD Work Phone: [facility] Comment on above: Localized swelling, mass and lump, neck (Primary Dx) Start: 02-22-2023 End: 02-22-2023 Subsequent hospital visit by physician Jared Evans MD Work Phone: [facility] US Comment on above: Localized swelling, mass and lump, neck Start: 02-17-2023 Transcribe Orders Jared Evans MD Work [facility]: [facility] Comment on above: Localized swelling, mass and lump, neck (Primary Dx) Start: 07-06-2022 Telephone encounter Roisin Tubbs RN NOC Comment on above: Follow Up Phone Call (All Clear) Start: 06-21-2022 End: 06-21-2022 Evaluation and management of inpatient SIM ELIZABETH Facility:[facility] Start: 06-19-2022 ambulatory Tamara THOMPSON [place] 41 00 CARD/HF/PD Start: 06-16-2022 End: 06-29-2022 Evaluation and management of inpatient BERNIE BIRD Facility:[facility] Start: 05-27-2022 Telephone encounter Jared [...] 02-08-2020 Emergency department patient visit Maryuri King [facility] Comment on above: Felon of finger [...] End: 07-05-2024 Blood count complete automated Wm Nunes DO Work Phone: Start: 07-02-2024 Blood count [...] RED HENDERSON Start: 05-21-2024 Prothrombin time Histor ical Yobany BROWNE Work Phone: Start: 05-14-2024 Echo tthrc r-t 2d w/wom-mode compl spec&colr d Jared Evans MD Work Phone: Start: 05-09-2024 Prothrombin time Histor ical Provider Work Phone: Start: 05-01-2024 Prothrombin time Histor ical Provider Work Phone: Start: 04-25-2024 Follow-up visit RED [facility] Start: 04-19-2024 Prothrombin time Histor ical Yobany BROWNE Work Phone: Start: 04-13-2024 Basic [...] Work Phone: Start: 04-06-2024 Antibody screen RED [facility] Comment on above: Performed By: #### L [id number] ####Material Requisitioner: VELMA VALADEZ ([id number])[facility] ([facility])[address] [place] [address] Start: 04-06-2024 Blood typing serologic abo Kristyn [...] 04-04-2024 Thromboplastin time partial plasma/whole blood Pratibha Dodie Avelar DO Work Phone: Start: 04-03-2024 Thromboplastin time partial plasma/whole blood Pratibha J Valentino DO Work Phone: Start: 04-03-2024 Cta abdl aorta&bi il iofem w/contrast&postp Bernie Patrizia DIRECTOR OF [employer] - [employer] SPECIALIST Work Phone: Start: 04-03-2024 Ct head/brain w/o co ntrast material Bernie Patrizia DIRECTOR OF [employer] - [employer] SPECIALIST Work Phone: Start: 04-03-2024 Comprehensive metabo lic panel Bernie Patrizia DIRECTOR OF [employer] - [employer] SPECIALIST Work Phone: Start: 04-03-2024 Ecg routine ecg w/le ast 12 lds trcg only w/o i&r Bernie Patrizia DIRECTOR OF [employer] - [employer]IST Work Phone: Start: 06-15-2023 Mri lower extrem oth /thn jt w/o & w/contr matr Jared Evans MD Work Phone: Start: 05-24-2023 Dup-scan xtr veins unilateral/limited study Jared Evans MD Work Phone: Start: 06-21-2022 Antibody screen BERNIE BIRD Comment on above: Order Comment: Speci men Type: BLOOD SPECIMEN Ordering Facility: [facility] Address: [address] [place], [place] [id number] Performed By: #### T SCR #### [facility] CLIA [id number] 1 [place] [address] [place] Start: 03-07-2020 OPERATIVE REPORT 3m Sca nning Start: 02-08-2020 INCISION AND DRAINAGE R mona Mora Work Phone: Plan of Treatment Date Care Activity Detail Author Start: 02-15-2029 DTaP/Tdap/Td vaccine (2 - Td) DTaP/Tdap/Td vaccine (2 - Td) [place] Start: 02-15-2029 DTaP/Tdap/Td Vaccines (2 - Td or Tdap) DTaP/Tdap/Td Vaccines (2 - Td or Tdap) [facility] Start: 02-15-2029 Urine microalbumin profile DTaP,Tdap,Td Vaccine (2 - Td or Tdap) [facility] Start: 08-05-2027 Diabetes Screening Diabetes Screening [facility] Start: 07-07-2027 Diabetes Screening Diabetes Screening [facility] Start: 07-06-2027 Diabetes Screening Diabetes Screening [facility] Start: 06-21-2027 Diabetes Screening Diabetes Screening [facility] Start: 08-16-2025 End: 01-23-2026 OCT MACULA CIRRUS OD (RIGHT EYE) OCT MACULA CIRRUS OD (RIGHT EYE) [facility] Imaging Routine Postoperative eye state 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, right eye Subluxation of right lens Expected: 08/16/2025, Expires: 01/23/2026 [facility] Work Phone: Comment on above: Expected: 08/16/2025, Expires: Start: 08-05-2025 Diabetes: Estimated Glomerular Filtration Rate for Kidney Health Diabetes: Estimated Glomerular Filtration Rate for Kidney Health [facility] Start: 08-04-2025 Diabetes: Estimated Glomerular Filtration Rate for Kidney Health Diabetes: Estimated Glomerular Filtration Rate for Kidney Health [facility] Start: 07-31-2025 End: 01-07-2026 Right eye Photo documentation FUNDUS PHOTOS OD (RIGHT EYE) [facility] Imaging Routine Postoperative eye state 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, right eye Subluxation of right lens Expected: 07/31/2025, Expires: 01/07/2026 [facility] Work Phone: Comment on above: Expected: 07/31/2025, Expires: Start: 07-07-2025 Diabetes: Estimated Glomerular Filtration Rate for Kidney Health Diabetes: Estimated Glomerular Filtration Rate for Kidney Health [facility] Start: 06-24-2025 DIABETES SCREEN DIABETES SCREEN [facility] Start: 06-10-2025 Thyroid stimulating hormone measurement TSH Level [facility] Start: 05-18-2025 DIABETES SCREEN DIABETES SCREEN [facility] Start: 03-18-2025 Influenza vaccination [facility] Start: 03-15-2025 End: 03-15-2025 Patient encounter procedure 03/15/2025 11:15 AM EDT Office Visit [facility] [address] [place] [phone] Andre Patel MD [address] [place] [address] [facility] Start: 01-02-2025 End: 01-02-2025 Patient encounter procedure 01/02/2025 9:45 AM EDT Office Visit [facility] [address] [place] [address] Savana Lopez MD [address] [place] [address] *3 M, DFE Ophthalmology Comment on above: *3 M, DFE Start: 12-24-2024 End: 12-24-2024 Patient encounter procedure 12/24/2024 2:30 PM EDT Office Visit [facility] [address] [place] [address] Kristyn Blankenship MD [address] [place], [place] [phone] [facility] Start: 12-05-2024 End: 12-05-2024 Patient encounter procedure 12/05/2024 10:00 AM EDT Office Visit [facility] [address] [place] [address] Kristyn Blankenship MD [address] [place] [address] [facility] Start: 11-22-2024 End: 11-22-2024 Admission to same day surgery center 11/22/2024 9:30 AM EDT - 11/22/2024 11:30 AM EDT Surgery [facility] MAIN OR [address] [place] [phone] Kristyn Blankenship MD [address] [place] [address] AORTOILIAC ANGIOGRAPHY, RIGHT LOWER EXTREMITY ANGIOGRAPHY WITH RUNOFF, POSSIBLE SUPERFICIAL FEMORAL ARTERY/POPLITEAL/TIBIAL ANGIOPLASTY/STENTING [63616 (CPT )] [facility] MAIN OR Comment on above: AORTOILIAC ANGIOGRAPHY, RIGHT LOWER EXTR EMITY ANGIOGRAPHY WITH RUNOFF, POSSIBLE SUPERFICIAL FEMORAL ARTERY/POPLITEAL/TIBIAL ANGIOPLASTY/STENTING [27090 (CPT )] Start: 11-22-2024 End: 11-22-2024 Angiography extremity unilateral rs&i ANGIOGRAM, EXTREMITY Skin ulcer of right great toe (HCC) Critical limb ischemia of right lower extremity (HCC) 11/22/2024 9:30 AM EDT [facility] Operating Room Start: 11-22-2024 Subsequent hospital visit by physician 11/22/2024 9:30 AM EDT Hospital Encounter [facility] [address] [facility] [place] [address] Kristyn Blankenship MD [address] [place] [address] [facility] OR Start: 11-20-2024 Subsequent hospital visit by physician 11/20/2024 Hospital Encounter [facility] OR [address] [place] [address] Kristyn Blankenship MD [address] [place] [phone] [facility] OR Start: 11-13-2024 End: 11-13-2025 Basic metabolic 1998 panel - Serum or Plasma Basic metabolic panel Lab Routine Pre-op evaluation Expected: 11/13/2024 (Approximate), Expires: 11/13/2025 [facility] Comment on above: Expected: 11/13/2024 (Approximate), Expi res: 11/13/2025 Start: 11-13-2024 End: 11-13-2025 CBC W Auto Differential panel - Blood CBC auto differential Lab Routine Pre-op evaluation Expected: 11/13/2024 (Approximate), Expires: 11/13/2025 [facility] Work Phone: Comment on above: Expected: 11/13/2024 (Approximate), Expi res: 11/13/2025 Start: 10-01-2024 End: 10-01-2024 Patient encounter procedure 10/01/2024 10:30 AM EDT Office Visit [facility] [address] [address] Savana Lopez MD [address] [place] [address] 26 Day F/U ~ DFE OD bscan OD . Ophthalmology Comment on above: 26 Day F/U ~ DFE OD bscan OD . Start: 08-22-2024 End: 08-22-2024 Patient encounter procedure 08/22/2024 10:30 AM EST Office Visit [facility] [address] [place] [phone] Henok Lantigua PA-C [address] [place] [phone] [facility] Start: 08-15-2024 End: 08-15-2024 Patient encounter procedure 08/15/2024 9:45 AM EST Office Visit [facility] [address] [place] [address] Savana Lopez MD [address] [place] [address] *1 month post op Ophthalmology Comment on above: *1 month post op Start: 08-06-2024 End: 08-06-2024 Patient encounter procedure 08/06/2024 11:00 AM EST Office Visit [facility] [address] [place] [address] Henok Lantigua PA-C [address] [place] [address] [facility] Start: 08-01-2024 End: 08-01-2024 Patient encounter procedure Ophthalmology Comment on above: *1 week post op Start: 07-31-2024 End: 07-31-2024 Patient encounter procedure [facility] Start: 07-27-2024 End: 07-27-2024 Admission to same day surgery center 07/27/2024 10:50 AM EST - 07/27/2024 12:40 PM EST Surgery Ophthalmology [address] [address] Savana Lopez MD [address] [place] [address] VITRECTOMY 25G [facility] PARS PLANA APPROACH W/ REMOVAL OF PRERETINAL CELLULAR MEMBRANE Ophthalmology Comment on above: VITRECTOMY 25G [facility] PARS PLANA APPROACH W/ REMOVAL OF PRERETINAL CELLULAR MEMBRANE Start: 07-27-2024 End: 07-27-2024 Aspiration/release vitreous subretinal/choroidal RELEASE OF VITREOUS, CHOROIDAL FLUID, PARS PLANA APPROACH Hemorrhagic choroidal detachment of right eye 07/27/2024 10:50 AM EST [facility] Start: 07-27-2024 Subsequent hospital visit by physician 07/27/2024 10:50 AM EST Hospital Encounter Ophthalmology [address] [address] Savana Lopez MD [address] [place] [address] 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] Ophthalmology Comment on above: Hemorrhagic choroidal detachment of righ t eye [H31.411] Start: 07-27-2024 End: 07-27-2024 Vitrectomy pars plana remove preretinal membrane VITRECTOMY 25G [facility] PARS PLANA APPROACH W/ REMOVAL OF PRERETINAL CELLULAR MEMBRANE Hemorrhagic choroidal detachment of right eye 07/27/2024 10:50 AM EST [facility] Start: 07-23-2024 End: 07-23-2024 Patient encounter procedure 07/23/2024 10:45 AM EST Office Visit [facility] [address] [address] Savana Lopez MD [address] [place] [address] *1 W, DFE OD/BSCAN OD/OPTOS OD Ophthalmology Comment on above: *1 W, DFE OD/BSCAN OD/OPTOS OD Start: 07-18-2024 Advance Directive Discussion Advance Directive Discussion [facility] Start: 07-18-2024 Medicare Advantage Annual Wellness Visit Medicare Advantage Annual Wellness Visit [facility] Start: 07-16-2024 End: 07-16-2024 Patient encounter procedure [...] right eye 07/13/2024 2:04 PM EST [facility] Start: 07-13-2024 End: 07-13-2024 Evaluation and management of inpatient 07/13/2024 2:04 PM EST - 07/13/2024 3:24 PM EST Surgery Ophthalmology [address] [address] Savana Lopez MD [address] [place] [address] ASPIRATION VITREOUS, CHOROIDAL FLUID, PARS PLANA APPROACH Ophthalmology Comment on above: ASPIRATION VITREOUS, CHOROIDAL FLUID, PA RS PLANA APPROACH Start: 06-04-2024 End: 05-21-2025 POCT Prothrombin Time INR ([facility]) POCT Prothrombin Time INR ([facility]) Lab Routine Atrial fibrillation, unspecified type (HCC) Acute venous embolism and thrombosis of deep vessels of proximal end of right lower extremity (HCC) Expected: 06/04/2024, Expires: 05/21/2025 [facility] Work Phone: Comment on above: Expected: 06/04/2024, Expires: Start: 06-04-2024 End: 06-04-2024 Anticoagulant drug monitoring 06/04/2024 1:15 AM EST Anticoagulation - Warfarin Visit [facility] Anticoagulation Management Service [address] [place] [phone] [facility] Anticoagulation Management Service Start: 05-22-2024 End: 05-22-2024 Patient encounter procedure 05/22/2024 3:00 PM EST Office Visit [facility] [address] [facility] [address] [place] [phone] Hermila Padilla MD [address] [facility] [address] [place], [place] [phone] [facility] Start: 05-22-2024 End: 05-22-2024 Anticoagulant drug monitoring 05/22/2024 12:45 AM EST Anticoagulation - Warfarin Visit [facility] Anticoagulation Management Service [address] [facility] [address] [place] [address] [facility]tico[facility] Management [facility] Start: 05-14-2024 End: 05-14-2024 Patient encounter procedure 05/14/2024 2:00 PM EDT Appointment [facility] Non-Invasive Cardiology [address] [place] [phone] [facility] Non-Invasive Cardiology Start: 05-08-2024 End: 05-01-2025 POCT Prothrombin Time INR ([facility]) POCT Prothrombin Time INR ([facility]) Lab Routine Atrial fibrillation, unspecified type (HCC) Acute venous embolism and thrombosis of deep vessels of proximal end of right lower extremity (HCC) Expected: 05/08/2024 (Approximate), Expires: 05/01/2025 [facility] Work Phone: Comment on above: Expected: 05/08/2024 (Approximate), Expi res: 05/01/2025 Start: 05-08-2024 End: 05-08-2024 Anticoagulant drug monitoring 05/08/2024 1:30 AM EDT Anticoagulation - Other Visit [facility] Anticoagulation Management Service [address] [place] [phone] [facility]tico[facility] Management Service Start: 05-01-2024 End: 05-01-2024 Anticoagulant drug monitoring 05/01/2024 Anticoagulation - Warfarin Visit [facility] Anticoagulation Management Service [address] [place] [address] [facility]tico[facility] Management [facility] Start: 04-23-2024 End: 04-19-2025 POCT Prothrombin Time INR ([facility]) POCT Prothrombin Time INR ([facility]) Lab Routine Atrial fibrillation, unspecified type (HCC) Acute venous embolism and thrombosis of deep vessels of proximal end of right lower extremity (HCC) Expected: 04/23/2024 (Approximate), Expires: 04/19/2025 [employer] Work Phone: Comment on above: Expected: 04/23/2024 (Approximate), Expi res: 04/19/2025 Start: 04-23-2024 End: 04-23-2024 Patient encounter procedure 04/23/2024 9:15 AM EDT Office Visit [facility] [address] [place] [phone] Henok Hernandez PA-C [address] [place], [place] [phone] [facility] Start: 04-23-2024 End: 04-23-2024 Anticoagulant drug monitoring 04/23/2024 1:15 AM EDT [facility]tico[facility] [address] [place] [phone] [facility] Start: 04-19-2024 End: 04-19-2024 Anticoagulant drug monitoring 04/19/2024 1:00 AM EDT Anticoagulation - [facility]in [facility] [address] [place] [phone] [facility] Start: 04-16-2024 End: 04-16-2025 POCT Prothrombin Time INR ([facility]) POCT Prothrombin Time INR ([facility]) Lab Routine Deep vein thrombosis (DVT) of lower extremity, unspecified chronicity, unspecified laterality, unspecified vein (HCC) Expected: 04/16/2024, Expires: 04/16/2025 [employer] Work Phone: Comment on above: Expected: 04/16/2024, Expires: Start: 03-18-2024 Covid-19 Vaccine ( season) Covid-19 Vaccine () [facility] Start: 03-18-2024 Influenza vaccination Influenza Vaccine (#1) [facility] Start: 07-18-2023 Advance Directive Discussion Advance Directive Discussion [facility] Start: 07-18-2023 Medicare Advantage Annual Wellness Visit Medicare [facility] Annual Wellness Visit [facility] Start: 03-18-2023 Influenza vaccination Influenza Vaccine (#1) [facility] Start: 03-18-2022 Influenza vaccination INFLUENZA (#1) [facility] Start: 07-18-2021 ADVANCE DIRECTIVE DISCUSSION ADVANCE DIRECTIVE DISCUSSION [facility] Start: 07-18-2021 DEPRESSION ASSESSMENT DEPRESSION ASSESSMENT [facility] Start: 03-18-2020 Influenza vaccination Flu vaccine (#1) [place], [place] Start: 03-13-2020 End: 03-13-2020 Office Visit 03/13/2020 Office Visit Orthopedic Surgery Jayla Mcmahan MD [address] [facility] [address] [place] [address] [phone] [facility] [place] Start: 03-07-2020 Hospital Encounter 03/07/2020 Hospital Encounter IP Unit Jayla Mcmahan MD [address] [facility] [address] [place] [address] [phone] [facility] Serrato Dept Start: 03-06-2020 Annual Wellness Visit (AWV) Annual Wellness Visit (AWV) [place] Start: 04-12-2019 Pneumococcal Vaccine: 50+ Years (2 of 2 - PPSV23) Pneumococcal Vaccine: 50+ Years (2 of 2 - PPSV23) [facility] Start: 04-12-2019 Pneumococcal Vaccine: 65+ Years (2 - PPSV23 if available, else PCV20) Pneumococcal Vaccine: 65+ Years (2 - PPSV23 if available, else PCV20) [facility] Start: 04-12-2019 Pneumococcal Vaccine: 65+ Years (2 - PPSV23 or PCV20) Pneumococcal Vaccine: 65+ Years (2 - PPSV23 or PCV20) [facility] Start: 04-12-2019 Pneumococcal Vaccine: 65+ Years (2 of 2 - PPSV23 or PCV20) Pneumococcal Vaccine: 65+ Years (2 of 2 - PPSV23 or PCV20) [facility] Start: 02-13-2016 DIABETES SCREEN DIABETES SCREEN [facility] Start: 09-24-2014 RSV Immunization for Adults (1 - 1-dose 75+ series) RSV Immunization for Adults (1 - 1-dose 75+ series) [facility] Start: 04-23-2010 DIABETES SCREEN DIABETES SCREEN [facility] Start: 09-24-2004 BONE DENSITY BONE DENSITY [facility] Start: 09-24-2004 Pneumococcal 65+ years Vaccine (2 of 2 - PPSV23) Pneumococcal 65+ years Vaccine (2 of 2 - PPSV23) [place], [place] Start: 09-24-2004 PNEUMOCOCCAL: 65+ (1 - PCV) PNEUMOCOCCAL: 65+ (1 - PCV) [facility] Start: 09-24-2004 Screening for osteoporosis Bone Density Screening [facility] Start: 1999 RSV Immunization aged 60 or older (1 - 1-dose 60+ series) RSV Immunization aged 60 or older (1 - 1-dose 60+ series) [facility] Start: 09-24-1994 Screening for osteoporosis DEXA (modify frequency per FRAX score) [place] Start: 09-24-1989 Shingles Vaccine (1 of 2) Shingles Vaccine (1 of 2) [place] Start: 09-24-1989 SHINGRIX VACCINE (1 of 2) SHINGRIX VACCINE (1 of 2) [facility] Start: 09-24-1989 Zoster Vaccines (1 of 2) Zoster Vaccines (1 of 2) [facility] Start: 09-24-1958 Urine microalbumin profile DTAP,TDAP,TD (1 - Tdap) [facility] Start: 09-24-1958 Zoster Vaccines (1 of 2) Zoster Vaccines (1 of 2) [facility] Start: 09-24-1957 Anxiety Screening Anxiety Screening [facility] Start: 09-24-1957 Depression Screening Depression Screening [facility] Start: 09-24-1957 Diabetes: Urine Albumin-Creatinine Ratio for Kidney Health Diabetes: Urine Albumin-Creatinine Ratio for Kidney Health [facility] Start: 09-24-1957 SPIROMETRY SPIROMETRY [facility] Start: 1951 Depression Monitoring Depression Monitoring [facility] Start: 1951 Depresssion Monitoring Depresssion Monitoring [facility] Start: 09-24-1945 PNEUMOCOCCAL: 65+ (1 - PCV) PNEUMOCOCCAL: 65+ (1 - PCV) [facility] Start: 09-24-1944 COVID-19 Vaccine (#1) COVID-19 Vaccine (#1) [facility] Start: 03-27-1940 COVID-19 VACCINE (#1) COVID-19 VACCINE (#1) [facility] Start: 1939 Creatinine measurement Creatinine monitoring [employer] [facility] [place] Start: 1939 Lipid panel Lipid Panel [facility] Start: 1939 Medicare Advantage Annual Wellness Visit (AWV) Medicare Advantage Annual Wellness Visit (AWV) [facility] Start: 1939 Potassium monitoring Potassium monitoring [facility] [place], [place] Start: 1939 Screening for osteoporosis Bone Density Scan [facility] Start: 1939 Thyroid stimulating hormone measurement TSH Level [facility] Angiography extremit y unilateral rs&i AORTOGRAM, WITH SERIALOGRAPHY Critical limb ischemia of right lower extremity (HCC) [facility] Operating Room Aortography abdomina l serialography rs&i AORTOGRAM, WITH SERIALOGRAPHY Critical limb ischemia of right lower extremity (HCC) [facility] Operating Room BSCAN OD (RIGHT EYE) BSCAN OD (R IGHT EYE) OPHT Imaging Routine Hemorrhagic choroidal detachment of right eye 07/09/2024 9:09 AM EST [facility] Work Phone: End: 01-03-2026 BSCAN OD (RIGHT EYE) BSCAN OD (RIGHT EYE) OPHT Imaging Routine Hemorrhagic choroidal detachment of right eye Dislocation of intraocular lens, initial encounter 1 Occurrences starting 07/12/2024 until 01/03/2026 [facility] Work Phone: Comment on above: 1 Occurrences starting 07/12/2024 until 01/03/2026 End: 01-07-2026 BSCAN OD (RIGHT EYE) BSCAN OD (RIGHT EYE) OPHT Imaging Routine Postoperative eye state 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, right eye Subluxation of right lens 1 Occurrences starting 07/16/2024 until 01/07/2026 [facility] Comment on above: 1 Occurrences starting 07/16/2024 until 01/07/2026 End: 02-27-2026 BSCAN OD (RIGHT EYE) BSCAN OD (RIGHT EYE) OPHT Imaging Routine Postoperative eye state 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, right eye Subluxation of right lens 1 Occurrences starting 09/05/2024 until 02/27/2026 [facility] Work Phone: Comment on above: 1 Occurrences starting 09/05/2024 until 02/27/2026 Camera fundoscopy FUNDUS PHOTOS OU (BOTH EYES) [facility] Imaging Routine Hemorrhagic choroidal detachment of right eye 07/09/2024 8:35 AM EST [facility] End: 03-08-2023 CT Neck W contrast IV [employer] Work Phone: Comment on above: Once for 1 Occurrences starting 03/08/20 until 03/08/2023 Incision/Drainage Incision/Drain age Procedures Routine 02/08/2020 7:17 PM EDT [facility] OUTSIDE PROCEDURE SCAN OUTSIDE P ROCEDURE SCAN Procedures Ordered: 02/21/2023 [employer] Comment on above: Ordered: 02/21/2023 OUTSIDE PROCEDURE SCAN OUTSIDE P ROCEDURE SCAN Procedures Ordered: 03/07/2023 [employer] Comment on above: Ordered: 03/07/2023 OUTSIDE PROCEDURE SCAN OUTSIDE P ROCEDURE SCAN Procedures Ordered: 05/24/2023 [employer] Comment on above: Ordered: 05/24/2023 OUTSIDE PROCEDURE SCAN OUTSIDE P ROCEDURE SCAN Procedures Ordered: 06/14/2023 [employer] Comment on above: Ordered: 06/14/2023 Oxygen therapy [Minimum Data Set] Initiate Oxygen Therapy Protocol Respiratory Care Routine Daily until discontinued starting 03/07/2020 [facility] Comment on above: Daily until discontinued starting 2019 End: 02-22-2023 US Head and neck soft tissue [employer] Work Phone: Comment on above: Once for 1 Occurrences starting 02/23/20 until 02/22/2023 End: 03-06-2020 XR FINGER RIGHT (MIN 2 VIEWS) XR FINGER RIGHT (MIN 2 VIEWS) Imaging Routine Once for 1 Occurrences starting 03/06/2020 until 03/06/2020 [facility] Comment on above: Once for 1 Occurrences starting 03/06/20 until 03/06/2020 XR FINGER RIGHT (MIN 2 VIEWS) XR FINGER RIGHT (MIN 2 VIEWS) Imaging Routine 03/06/2020 10:20 AM EDT [facility] Immunizations Immunization Date Immunization Notes Care Provider Fa [facility] 05-19-2021 Influenza, High-dose Seasonal, Quadrivalent, Preservative Free Ming Weinberg MD Work Phone: [facility] [place] 05-19-2021 influenza virus vaccine, unspecified formulation Jared Evans MD Work Phone: [facility] [place] 02-15-2019 pneumococcal conjuga te vaccine, 13 valent Ming Weinberg MD Work Phone: [facility] [place] 02-15-2019 tetanus toxoid, redu larissa diphtheria toxoid, and acellular pertussis vaccine, adsorbed Ming Weinberg MD Work Phone: [facility] [place] 06-29-2013 influenza, high dose seasonal, preservative-free Ming Weinberg MD Work Phone: [employer] NEGATED: Highlighted row has not occurred!04-05-2024 Seasonal trivalent influenza vaccine, adjuvanted, preservative free Winifred Cronell DO Work Phone: [facility] [place] Comment on above: Deferred: Patient Re fused Payers Date Payer Category Payer Unknown [id number] 2024 Self-pay 2023 Private Health Insurance HUMANA HUMANA MEDICARE SUPPLEMENT [id number] 2023-[address] [place] [id number] Commercial [id number] 2017 Medicare [id number] 2017 Medicare (Managed Care) NADEGE ESCOBAR [id number] 2017 Medicare HMO HUMANA MEDICARE [id number] 2017 Medicare [id number]. [id number] 1939 Unknown [id number] 2.16.840.1.956633.3.579. 2.594 Unknown 1.2.840.713948. 1.13.159. 2.7.3.355462.315 Unknown [id number] 2.16.840.1.288698.3.579. 2.462 Unknown [id number] 2.16.840.1.497233.3.579. 2.462 Unknown [id number] 2.16.840.1.176744.3.579. 2.462 Unknown [id number] 2.16.840.1.986061.3.579. 2.462 Unknown [id number] 2.16.840.1.585565.3.579. 2.462 Unknown [id number] 2.16.840.1.013623.3.579. 2.462 Unknown [id number] 2.16.840.1.350389.3.579. 2.462 Unknown [id number] 2.16.840.1.541651.3.579. 2.462 Unknown [id number] 2.16.840.1.236760.3.579. 2.462 Unknown [id number] 2.840.1.819326.3.579. 2.462 Unknown [id number] 2.16840.1.145332.3.579. 2.462 Unknown [id number] 2.840.1.717073.3.579. 2.462 Unknown [id number] 2.840.1.502063.3.579. 2.462 Unknown [id number] 2.840.1.610663.3.579. 2.462 Unknown [id number] 2.840.1.873147.3.579. 2.462 Unknown [id number] 2.840.1.083012.3.579. 2.462 Unknown [id number] 2.840.1.761417.3.579. 2.462 Unknown [id number] 2.840.1.507280.3.579. 2.462 Unknown [id number] 2.840.1.865682.3.579. 2.462 Unknown [id number] 2.840.1.387299.3.579. 2.462 Unknown [id number] 2.840.1.067196.3.579. 2.462 Unknown [id number] 2.840.1.894535.3.579. 2.462 Unknown [id number] .840.1.196018.3.579. 2.462 Unknown [id number] 2.840.1.855553.3.579. 2.462 Unknown [id number] 2.840.1.330699.3.579. 2.462 Unknown [id number] 2.840.1.269525.3.579. 2.462 Unknown [id number] 2.16.840.1.376197.3.579. 2.462 Unknown [id number] 2.16.840.1.018442.3.579. 2.462 Unknown [id number] 2.16.840.1.099608.3.579. 2.462 Unknown [id number] 2.16.840.1.838051.3.579. 2.462 Unknown [id number] 2.16.840.1.299876.3.579. 2.462 Unknown [id number] 2.16.840.1.955701.3.579. 2.462 Unknown [id number] 2.16.840.1.156500.3.579. 2.462 Social History Date Type Detail Facility Start: 02-08-2020 Tobacco smoking stat [facility] Current some day smoker [place], [place] Start: 02-08-2020 End: 04-20-2024 Alcohol intake Current drinker of alcohol (finding) [place] Start: 02-08-2020 End: 05-22-2024 Alcohol Comment occ [place], [place] Start: 1940 Sex Assigned At Not on file [place] Start: 05-04-2022 End: 03-08-2023 Exposure to SARS-CoV-2 (event) Not sure [place] Start: 03-06-2020 End: 04-25-2024 Tobacco smoking status NHIS Former [place] Start: 03-06-2020 End: 04-25-2024 Tobacco use and exposure Never used [place] [facility] consumption unknown [facility] Start: 05-17-2022 End: 04-04-2024 Tobacco smoking status NHIS Smokes tobacco daily [facility] History of tobacco use Cigarette Smoker [facility] Start: 05-17-2022 End: 08-11-2024 Cigarettes smoked current (pack per day) - Reported 0.5 [facility] Start: 05-18-2022 History SDOH Financial 5 [facility] Start: 05-18-2022 History SDOH Food Worry 1 [facility] Start: 05-18-2022 History SDOH Transpo rt Med 2 [facility] Start: 07-05-2022 End: 03-15-2025 Alcohol intake Ex-drinker (finding) [facility] History of tobacco use Current smoker [facility] Start: 07-27-2023 End: 08-11-2024 Gender identity Not on file [facility] How often do you nee d to have someone help you when you read instructions, pamphlets, or other written material from your doctor or pharmacy [SILS] Never [facility] Has the [employer], or water [employer] threatened to shut off services in your home in past 12Mo No [facility] Are you now , , , , never or living with a partner? [facility] How often to you hav e a drink containing alcohol? Monthly or less [facility] How often do you hav e 6 or more drinks on 1 occasion? Never [facility] How hard is it for y ou to pay for the very basics like food, housing, medical care, and heating Not very hard [facility] Do you feel stress - tense, restless, nervous, or anxious, or unable to sleep at night because your mind is troubled all the time - these days [OSQ] Not at all [facility] (I/We) worried wheth er (my/our) food would run out before (I/we) got money to buy more. Never true [facility] Start: 02-15-2022 End: 10-25-2024 Sex Female (finding) [facility] Start: 1940 Sex assigned at Female S [facility] Start: 08-03-2024 Gender identity Identifies as female gender (finding) [facility] Start: 08-03-2024 Sexual orientation Heterosexual (fin ding) [facility] NEGATED: Highlighted rowStart: NINF History of tobacco use Passive smoker [facility] Medical Equipment Procedure Code Equipment Code Equipment Origin al Text Equipment Identifier Dates Gas Ispan [employer] System [id number] - [id number] Start: 07-27-2024 Stent Vasc 6x40x 125 6f lver [facility] - [id number] Start: 11-22-2024 Stent Oliva 5x40x1 25 6f [employer] - [facility] - [id number] Start: 11-22-2024 Functional Status Date Assessment Result Facility 07-18-2024 Are you deaf, or do you have serious difficulty hearing No 07/18/2024 12:17 PM Jaci Umana RN No [facility] 07-18-2024 Are you blind, or do you have serious difficulty seeing, even when wearing glasses Yes 07/18/2024 12:17 PM Jaci Umana, RADHA Yes [facility] 07-18-2024 Do you have serious difficulty walking or climbing stairs Yes 07/18/2024 12:17 PM Jaci Umana RN Yes [facility] 07-18-2024 Do you have difficul ty dressing or bathing Yes 07/18/2024 12:17 PM Jaci Umana, RADHA Yes [facility] 07-18-2024 Because of a physica l, mental, or emotional condition, do you have difficulty doing errands alone such as visiting a physician's office or shopping Yes 07/18/2024 12:17 PM Jaci Umana RN Yes [facility] Mental Status Date Assessment Result Facility 07-18-2024 Because of a physica l, mental, or emotional condition, do you have serious difficulty concentrating, remembering, or making decisions No 07/18/2024 12:17 PM Jaci Umana, RADHA No [facility] Clinical Notes 05-14-2022 to 03-15-2025 Andre Berry MD - 03/15/2025 11:15 AM Savana Triana MD - 01/02/2025 9:45 AM Cindy Blankenship MD - 12/24/2024 2:30 PM Cindy Blankenship MD - 12/05/2024 10:00 AM EDTDischarge Instructions Note Date & Type Note Facility 03-15-2025 History of Present illness Narrative Images from the original note were not included. Andre Patel MD [facility] Hematology/Oncology - [facility] [address] [facility] [address] Dept: [phone] Dept PROBLEM LIST: 1. Recurrent DVT: Initially [...] completing clinical documentation as well as with [id number] patient care, performing a medically appropriate examination, counseling / educating the patient/family/caregiver, and ordering medications, tests, or procedures. HPI: Mel Pop is a 84 y.o. female who presents here today with VTE Pt w/ history of severe atherosclerosis, COPD, former smoker, diverticulosis, afib, hypertension, and GERD who presented to [facility] for right lower extremity pain. Reports [...] trifurcation vessels. Vascular surgery recommended transfer to [facility]. PVR and BLE US results [...] transition to Coumadin. 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 [employer]) as well as Fidel STAPLETON Pt reports [...] Resource Strain: Low Risk (06/20/2024) Received from [facility] Overall Financial Resource Strain (CARDIA) Difficulty [...] min Stress: Patient Unable To Answer (08/03/2024) Citizen Of [place] [facility] [employer] - Occupational Stress Questionnaire Feeling of Stress : Patient unable to answer Social Connections: Unknown (08/03/2024) Social Connection and Isolation Panel [NHANES] Frequency of Communication with Friends and Family: Patient unable to answer Frequency of Social Gatherings with Friends and Family: Patient unable to answer Attends Jainism Services: Patient unable to answer Active Member of Clubs or Organizations: Patient unable to answer Attends Club or Organization Meetings: Never Marital Status: Patient unable to answer Recent Concern: Social Connections - Moderately Isolated (06/20/2024) Received from [facility] Social Connection and Isolation Panel [NHANES] Frequency of Communication with Friends and Family: More than three times a week Frequency of Social Gatherings with Friends and Family: Once a week Attends Jainism Services: More than 4 times per year [...] 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 [1] Past Medical History: Diagnosis Date Arrhythmia PAF Asthma Chronic kidney disease COPD (chronic obstructive pulmonary disease) (HCC) DVT (deep venous thrombosis) (HCC) Essential hypertension 03/07/2020 GERD (gastroesophageal reflux disease) Hiatal hernia IBS (irritable bowel syndrome) Pure hypercholesterolemia 03/07/2020 PVD (peripheral vascular disease) ([facility]) Stroke (HCC) [2] Past Surgical History: Procedure Laterality Date ANKLE SURGERY ARM SURGERY (HISTORICAL) Right COLONOSCOPY ESOPHAGEAL DILATION EYE SURGERY Right 07/05/2024 [facility] EYE SURGERY Right 06/2024 x2, [facility] FINGER AMPUTATION Right 03/07/2020 right [...] Percocet [Oxycodone-Acetaminophen] Itching documented in this encounter [facility] 01-02-2025 History of Present illness Narrative Can [...] choroidals (not yet appositional) - Evaluated at [facility] 07/12/24 with intense nausea and multiple episodes [...] to HTN (SBP 199/99 at presentation to [facility]) and anticoagulation that led to angle closure [...] its relevant components. documented in this encounter [facility] 01-02-2025 Note HNO ID: [id number] Author: SAVANA LOPEZ MD Service: ? Author [...] choroidals (not yet appositional) - Evaluated at [facility] 07/12/24 with intense nausea and multiple episodes [...] to HTN (SBP 199/99 at presentation to [facility]) and anticoagulation that led to angle closure [...] (more content not included)... [facility] 12-24-2024 History of Present illness Narrative 12/24/2024 Mel F Jose Alberto 1940 Chief Complaint Patient presents with Follow-up Discuss Arterial Duplex Right 12/13/24; 2nd follow up RLE angio, SFA/pop/tib angioplasty/stenting 11/22/24 ([facility] ) Patient returns for post operative evaluation s/p [...] US lower extremity arterial duplex right with MICEHLLE Plan for arterial duplex in 3 months for surveillance. Continue ASA and Eliquis. Ok to to discontinue plavix on 01/07. Follow up in 3 months or sooner should there be any concerns. 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 HYSTERECTOMY ORTHOPEDIC SURGERY THROMBECTOMY Right 04/06/2024 RLE mechanical thrombectomy (Krzysztof) VASCULAR SURGERY Right 11/22/2024 AORTOILIAC ANGIOGRAPHY, RIGHT LOWER EXTREMITY ANGIOGRAPHY WITH RUNOFF, SUPERFICIAL FEMORAL ARTERY, POPLITEAL,TIBIAL ANGIOPLASTY and STENTING (Krzysztof) VASCULAR SURGERY Left 11/22/2024 Left femoral angiography (Krzysztof) documented in this encounter [facility] 12-05-2024 History of Present illness Narrative 12/05/2024 Mel Kareem Jose Alberto 1940 Chief Complaint [...] I reviewed the images with the patient's [id number]-[id number]-inr who was present for today's visit as the patient is blind. Follow up after arterial duplex to discuss the results. 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 Groin site remains intact and LE distal pulses unchanged via assessment with doppler. 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 They have elected to proceed. PROCEDURE [...] technique was used to place a 5 Angolan sheath. The Bentson wire was positioned in [...] catheter and the catheter removed. The 5 Angolan sheath was exchanged for a long 6 Angolan Ansell sheath which was positioned with its [...] sheath was exchanged for a short 6 Angolan sheath. A Vascade closure device was deployed [...] MD Vascular Surgery documented in this encounter [facility] 11-22-2024 Procedure note POA given updated via phone call. Made aware of patient's orders to lay flat until 1325. Daughter in law stated that she will call care facility later to make arrangements for transportation back. [facility] 11-22-2024 Hospital Discharge instructions Mehreen Khanna MD [...] the office l documented in this encounter [facility] 11-22-2024 Nurse Note Patient arrived on unit. Name and date verified. Attached to monitors. Vital signs stable. [facility] 11-22-2024 Note [facility] 11-22-2024 Procedure note OPERATIVE REPORT [...] the patient as well as the patient's xvlqjayt-[id number] iFdel. They have elected to proceed. PROCEDURE [...] technique was used to place a 5 Angolan sheath. The Bentson wire was positioned in [...] catheter and the catheter removed. The 5 Angolan sheath was exchanged for a long 6 Angolan Ansell sheath which was positioned with its [...] sheath was exchanged for a short 6 Angolan sheath. A Vascade closure device was deployed [...] preoperative examination. Kristyn Blankenship MD [facility] 11-22-2024 Attending History and physical note H&P [...] with a [facility]er [facility] She is on Eliquis and statin. She is a former smoker. PastMedical History: Past Medical History: Diagnosis Date Arrhythmia PAF Asthma Chronic kidney disease COPD (chronic obstructive pulmonary disease) ([facility]) DVT (deep venous thrombosis) ([facility]) Essential hypertension 03/07/2020 GERD (gastroesophageal reflux disease) Hiatal hernia IBS (irritable bowel syndrome) Pure hypercholesterolemia 03/07/2020 PVD (peripheral vascular disease) ([facility]) Stroke ([facility]) Past Surgical History: Past Surgical History: Procedure Laterality Date ANKLE SURGERY ARM SURGERY (HISTORICAL) Right COLONOSCOPY ESOPHAGEAL DILATION EYE SURGERY Right 07/05/2024 [facility] E[facility] SURGERY Right 06/2024 x2, [facility] FINGER AMPUTATION Right 03/07/2020 right [...] min Stress: Patient Unable To Answer (08/03/2024) Citizen Of [place] [facility] [employer] - Occupational Stress Questionnaire Feeling of Stress : Patient unable to answer Social Connections: Unknown (08/03/2024) Social Connection and Isolation Panel [NHANES] Frequency of Communication with Friends and Family: Patient unable to answer Frequency of Social Gatherings with Friends and Family: Patient unable to answer Attends Jainism Services: Patient unable to answer Active Member of Clubs or Organizations: Patient unable to answer Attends Club or Organization Meetings: Never Marital Status: Patient unable to answer Recent Concern: Social Connections - Moderately Isolated (06/20/2024) Received from [facility] Social Connection and Isolation Panel [NHANES] Frequency of Communication with Friends and Family: More than three times a week Frequency of Social Gatherings with Friends and Family: Once a week Attends Jainism Services: More than 4 times per year [...] like me to discuss this with her [id number] Fidel Castillo. She states she is her POA. I have contacted Fidel via telephone and explained the above and the recommendations for angiography. She will speak with the patient and call the office to let us know how they would like to proceed. Kristyn Blankenship MD Vascular Surgery [facility] Work Phone: 11-22-2024 Note [facility] 11-22-2024 History and physical note [...] with a walker with pT [facility]. She is on Eliquis and statin. She is a former smoker. PastMedical History: Past Medical History: Diagnosis Date Arrhythmia PAF Asthma Chronic kidney disease COPD (chronic obstructive pulmonary disease) ([facility]) DVT (deep venous thrombosis) ([facility]) Essential hypertension 03/07/2020 GERD (gastroesophageal reflux disease) Hiatal hernia IBS (irritable bowel syndrome) Pure hypercholesterolemia 03/07/2020 PVD (peripheral vascular disease) ([facility]) Stroke ([facility]) Past Surgical History: Past Surgical History: Procedure Laterality Date ANKLE SURGERY ARM SURGERY (HISTORICAL) Right COLONOSCOPY ESOPHAGEAL DILATION EYE SURGERY Right 07/05/2024 [facility] EYE SURGERY Right 06/2024 , [facility] FINGER AMPUTATION Right 03/07/2020 right [...] min Stress: Patient Unable To Answer (08/03/2024) Citizen Of [place] [facility] [employer] - Occupational Stress Questionnaire Feeling of Stress : Patient unable to answer Social Connections: Unknown (08/03/2024) Social Connection and Isolation Panel [NHANES] Frequency of Communication with Friends and Family: Patient unable to answer Frequency of Social Gatherings with Friends and Family: Patient unable to answer Attends Jainism Services: Patient unable to answer Active Member of Clubs or Organizations: Patient unable to answer Attends Club or Organization Meetings: Never Marital Status: Patient unable to answer Recent Concern: Social Connections - Moderately Isolated (06/20/2024) Received from [facility] Social Connection and Isolation Panel [NHANES] Frequency of Communication with Friends and Family: More than three times a week Frequency of Social Gatherings with Friends and Family: Once a week Attends Jainism Services: More than 4 times per year [...] None Visit Diagnoses PAD (peripheral artery disease) ([facility]) - Primary Skin ulcer of toe of right foot, limited to breakdown of skin ([facility]) Given patient's known peripheral vascular disease and now with development of toe ulceration, I recommend angiography of the right lower extremity with possible intervention. I discussed the procedure with the patient and how it is performed. We discussed the risks of bleeding, infection, damage to surrounding structures, and access site complications. She would like me to discuss this with her [id number]-af-jzb Fidel Castillo. She states she is her POA. I have contacted Fidel via telephone and explained the above and the recommendations for angiography. She will speak with the patient and call the office to let us know how they would like to proceed. 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 Mailbox full & unable to leave voicemail. [facility] 11-05-2024 History of Present illness Narrative [...] with a walker with pT at her jail facility. She is on Eliquis and statin. She is a former smoker. PastMedical History: Past Medical History: Diagnosis Date Arrhythmia PAF Asthma Chronic kidney disease COPD (chronic obstructive pulmonary disease) ([facility]) DVT (deep venous thrombosis) ([facility]) Essential hypertension 03/07/2020 GERD (gastroesophageal reflux disease) Hiatal hernia IBS (irritable bowel syndrome) Pure hypercholesterolemia 03/07/2020 PVD (peripheral vascular disease) ([facility]) Stroke ([facility]) Past Surgical History: Past Surgical History: Procedure Laterality Date ANKLE SURGERY ARM SURGERY (HISTORICAL) Right COLONOSCOPY ESOPHAGEAL DILATION EYE SURGERY Right 07/05/2024 [facility] EYE SURGERY Right 06/2024 x2, [facility] FINGER AMPUTATION Right 03/07/2020 right [...] Resource Strain: Low Risk (06/20/2024) Received from [facility] Overall Financial Resource Strain (CARDIA) Difficulty [...] min Stress: Patient Unable To Answer (08/03/2024) Citizen Of [place] [facility] [employer]ational [employer] - Occupational Stress Questionnaire Feeling of Stress : Patient unable to answer Social Connections: Unknown (08/03/2024) Social Connection and Isolation Panel [NHANES] Frequency of Communication with Friends and Family: Patient unable to answer Frequency of Social Gatherings with Friends and Family: Patient unable to answer Attends Jainism Services: Patient unable to answer Active Member of Clubs or Organizations: Patient unable to answer Attends Club or Organization Meetings: Never Marital Status: Patient unable to answer Recent Concern: Social Connections - Moderately Isolated (06/20/2024) Received from [facility] Social Connection and Isolation Panel [NHANES] Frequency of Communication with Friends and Family: More than three times a week Frequency of Social Gatherings with Friends and Family: Once a week Attends Jainism Services: More than 4 times per year [...] like me to discuss this with her ypqzfwha-io-hyk Fidel Castillo. She states she is her POA. I have contacted Fidel via telephone and explained the above and the recommendations for angiography. She will speak with the patient and call the office to let us know how they would like to proceed. Kristyn Blankenship MD Vascular Surgery documented in this encounter [facility] 11-05-2024 Note [facility] 10-01-2024 Note Date of Procedure 10/01/2024. Glass Edger Information CATALINA Donovan CDOS 10/01/2024 10:58 AM [...] drops right eye documented in this encounter [facility] 10-01-2024 Note HNO ID: [id number] Author: SAVANA LOPEZ MD Service: ? Author [...] choroidals (not yet appositional) - Evaluated at [facility] 07/12/24 with intense nausea and multiple episodes [...] to HTN (SBP 199/99 at presentation to [facility]) and anticoagulation that led to angle closure [...] (more content not included)... [facility] 10-01-2024 History of Present illness Narrative [...] choroidals (not yet appositional) - Evaluated at [facility] 07/12/24 with intense nausea and multiple episodes [...] to HTN (SBP 199/99 at presentation to [facility]) and anticoagulation that led to angle closure [...] its relevant components. 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 documented in this encounter [facility] 09-05-2024 Note HNO ID: [id number] Author: SAVANA LOPEZ MD Service: ? 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 [facility] 08-22-2024 History of Present illness Narrative [facility] Vascular [place] Vascular Surgery Follow-up Office Visit CHIEF COMPLAINT: Chief Complaint Patient presents with Follow-up 3 month follow up, PAD check ([facility] [place]) HISTORY OF PRESENT ILLNESS: Mel Pop is [...] with PT at [facility] without difficulty. She denies any [...] 07/05/2024 [facility] EYE SURGERY Right 06/2024 x2, [facility] FINGER AMPUTATION Right 03/07/2020 right [...] Resource Strain: Low Risk (06/20/2024) Received from [facility] Overall Financial Resource Strain (CARDIA) Difficulty [...] min Stress: Patient Unable To Answer (08/03/2024) Citizen [place] [facility] [employer] - Occupational Stress Questionnaire Feeling of Stress : Patient unable to answer Social Connections: Unknown (08/03/2024) Social Connection and Isolation Panel [NHANES] Frequency of Communication with Friends and Family: Patient unable to answer Frequency of Social Gatherings with Friends and Family: Patient unable to answer Attends Jainism Services: Patient unable to answer Active Member of Clubs or Organizations: Patient unable to answer Attends Club or Organization Meetings: Never Marital Status: Patient unable to answer Recent Concern: Social Connections - Moderately Isolated (06/20/2024) Received from [facility] Social Connection and Isolation Panel [NHANES] Frequency of Communication with Friends and Family: More than three times a week Frequency of Social Gatherings with Friends and Family: Once a week Attends Jainism Services: More than 4 times per year [...] ([facility]CC) - Primary PAD (peripheral artery disease) ([facility]) 1. Stable follow up of lower [...] Follow-Up: prn . documented in this encounter [facility] 08-16-2024 Note [facility] 08-16-2024 Nurse Note Patient picked up for transfer to [facility] by stretcher. Report already called to GENET Garcia. [facility] 08-16-2024 Nurse Note Patient picked up for transfer to [facility] by stretcher. Report already called to GENET Garcia. Telephone report called to GENET Garcia at [facility]. Bedside swallow completed. Pt passed and tolerated well tolerated well. documented in this encounter [facility] 08-16-2024 Nurse Note Telephone report called to GENET Garcia at [facility]. [facility] 08-16-2024 Note Formatting of this n ote might be different from the original. Arranged transport to [facility] via [employer] with pickup at 2pm. Notified snf of transport time via Careport message; reviewed time with RN, residential door unit installer and TCC. Called pt's daughter to review discharge time., plan; she is agreeable. [facility] 08-16-2024 Note Formatting of this n ote might be different from the original. Arranged transport to [facility] via [employer] with pickup at 2pm. Notified snf of transport time via Careport message; reviewed time with RN, residential door unit installer and TCC. Called pt's daughter to review discharge time., plan; she is agreeable. [facility] 08-16-2024 Miscellaneous Notes Arranged transport to [facility] via Answer[employer]To with pickup at 2pm. Notified snf of transport time via Careport message; reviewed time with RN, residential door unit installer and TCC. Called pt's daughter to review discharge time., plan; she is agreeable. Patient Choice Patient Name: MEL POP Date of : 1940 All Providers Sent Referral Name: [facility] Phone: [phone] Address: [address] [place] [address] Name: [facility] Phone: [phone] Address: [address] [place] [address] Name: [facility] Phone: [phone] Address: [address] [place] [address] MAR & Discharge med list transmitted to [facility] via Careport per TCC request. Pt has auth to go to [facility]. Dtr Fidel,[phone] was called, message left @DC. Care Team was messaged...place DC orders/MAR. Dar YOUNG RN complete HECTOR. DIRECTOR AUDIENCE MARKETING will arrange transport for this am. [facility] tasked to sebd DC orders/MAR. Problem: Knowledge [...] met Outcome: Progressing Authorization is pending with [facility]. Ref# [id number] to be DC'd to [facility]. Dtr Fidel Updated. CM to follow. [...] Progressing Pt has Been accepted to [facility]. Need PT/OT to see so [...] [facility] via [facility]port per [facility] request. Await review and response regarding ability to accept. TCC notified. Electronically signed by Christine Morataya [facility], 08-13-2024 at 3:00 PM Called dgt to talk about dc planning. Dgt continues to tour SNFs this evening, since she was sick this weekend. Provided me with two more SNF choices. [facility]. Tasked [facility] to create these referrals. CM to follow. [...] Dgt touring facilities over the weekend. [place]. [facility] pending acceptance, updates sent via [facility]. Problem: Knowledge Deficit Goal: Patient/family/caregiver demonstrates [...] Nutritional Intake Outcome: Progressing [facility] TCC request. Await review and response regarding ability to accept. TCC notified. Electronically signed by Christine Morataya [facility], 08-10-2024 at 9:23AM Pt was to be DC to [facility]. Found out pt and dtr didn't want to return to [facility]. SNF was made aware. On adm spoke with Dtr Fidel, ok to return. Called Dtr this am, after speaking with pt and things that happened and didn't happen. Fidel requesting a referral to be made to [facility]. [facility] tasked to send. A SNF list was emailed to Fidel. [email or web address]. She will tour facilities over weekend. CM [...] and med list sent via Careport to [facility] per TCC request. Auth received. Patient with active dc orders. Transportation arranged through [employer] with estimated machine operator hop picker time of 1929. VM left with daughter Fidel along with 3N phone number to call with questions. Bedside RN aware. Facility updated. [facility] supervisor winter sent orders to [facility]. customer consulting manager was asked to assist with setting up transport back to [facility] this evening. physician office secretary had already done so, but this manager combination called daughter to inform her of discharge and transport set up. Daughter did not wish patient to return to the SNF. Upkeep Worker told her that patient is medically stable for dc and that she should continue the discussion with the high school social studies teacher and academic administrator at The snf, and also get options from [employer]. Coordinator was to message the snf about return this evening via [employer]. Updated PT/OT notes placed to SNF [facility] via Careport per TCC request. Await review and response regarding ability to accept. TCC notified. Electronically signed by [facility] Aracelis Gardiner Patient is medically ready for dc. PT/OT both continuing to recommend SNF. [facility] manager combination asked to start auth. Plan to dc back to [facility] pending auth I was off Yesterday, PT note was in from Tuesday. Therapy to see today was sent out to OT Tuesday to see yesterday. Pt was not seen. I did sent a therapy to see today to PT/OT so an auth can be started. Pt will Be Dc'd to [facility]. CM to follow. Problem: Knowledge Deficit [...] aspiration 2/2 vomiting. Discharge Plan: Return to [facility]. Therapy eval needed for precert. TCC [...] Plan is for pt to return to [facility]. Auth and HECTOR needed prior to DC. CM to follow. Per attending pt ready for DC. Pt will return to [facility]. Pt needs PT/OT to start auth [...] Maintained or Improved 08/03/2024 1457 by Lima Sanez RN Outcome: Progressing 08/03/2024 0842 by Lima Saenz RN Outcome: Progressing 08/03/2024 0842 by Lima Saenz RN Outcome: Progressing Return referral placed to [facility] via Careport per TCC request. Await review and response regarding ability to accept. TCC notified. Pt to ED w N/V/Diarrhea, was Dx w Aspiration pneumonitis. Started on IV ATB's. Called pt's Dtr, Fidel, . Pt is from [facility]. Plan on returning. [facility] tasked to send a return referral. Problem: [...] Improved Outcome: Progressing documented in this encounter [facility] 08-16-2024 Note Formatting of this n ote might be different from the original. Patient Choice Patient Name: MEL POP Date of : 1940 All Providers Sent Referral Name: Mckenzie Adames [facility] Phone: [phone] Address: [address] [place] [address] Name: [facility] Phone: [phone] Address: [address] [place], [place] [address] Name: [facility] Phone: [phone] Address: [address] [place] [address] [facility] 08-16-2024 Note Formatting of this n ote might be different from the original. Patient Choice Patient Name: MEL POP Date of : 1940 All Providers Sent Referral Name: [facility] Phone: [phone] Address: [address] [place] [address] Name: [facility] Phone: [phone] Address: [address] [place] [address] Name: [facility] Phone: [phone] Address: [address] [place] [address] [facility] 08-16-2024 Note Formatting of this n ote might be different from the original. MAR & Discharge med list transmitted to [facility] via Careport per TCC request. [facility] 08-16-2024 Note Formatting of this n ote might be different from the original. MAR & Discharge med list transmitted to [facility] via Careport per TCC request. [facility] 08-16-2024 Note Formatting of this n ote might be different from the original. Pt has auth to go to [facility]. Dtr Fidel,[phone] was called, message left @DC. Care Team was messaged...place DC orders/MAR. Dar YOUNG RN complete HECTOR. DIRECTOR AUDIENCE MARKETING will arrange transport for this am. [facility] tasked to sebd DC orders/MAR. [facility] 08-16-2024 Note Formatting of this n ote might be different from the original. Pt has auth to go to [facility] [place]. Dttiffanie [phone] was called, message left @DC. Care Team was messaged...place DC orders/MAR. Dar YOUNG, RN complete HECTOR. DIRECTOR AUDIENCE MARKETING will arrange transport for this am. HARNESS FITTER tasked to sebd DC orders/MAR. [employer] 08-16-2024 History of Present illness Narrative Hospitalist Progress Note 08/16/2024 Subjective: Admit Date: 08/03/2024 PCP: Jared Evans MD Room#: [id number] A BRIEF HOSPITAL COURSE: Mel is a 83 y.o. female with past medical history below who presents with chief complaint listed above.Patient is an 83 y/o female who presented to [place] [facility] early this AM from local [place] for vomiting and diarrhea. Patient reported she [...] Pure hypercholesterolemia 03/07/2020 PVD (peripheral vascular disease) ([facility]) Stroke ([facility]) LABS: CBC: No results for input(s): [...] Devika Escobar MD Division of Hospitalist Medicine [facility] Hospitalist Progress Note 08/15/2024 Subjective: Admit Date: 08/03/2024 PCP: Jared Evans MD Room#: [id number] A BRIEF HOSPITAL COURSE: Mel is a 83 y.o. female with past medical history below who presents with chief complaint listed above.Patient is an 83 y/o female who presented to [place] [facility] early this AM from [place] for vomiting and diarrhea. Patient reported she [...] Devika Escobar MD Division of Hospitalist Medicine [facility] Images from the original note were not included. PHYSICAL THERAPY [facility] Treatment Note Name/MRN: Mel Pop ([id number]) Date of : 1940 Age: 83 y.o. 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 [...] Goal: keep getting up, get back to [place]. Encounter Problems Encounter Problems (Active) Balance Patient [...] original note were not included. OCCUPATIONAL THERAPY [facility] Treatment Note Name/MRN: Mel Pop ([id number]) Date of : 1940 Age: 83 y.o. Room[facility]Bed: [facility] A Discharge Recommendation: [facility] Facility Prior Level [...] with 24/7 assist, home health OT and psychometric examiner. Pt. ( Who is totally BLIND), Would due better receiving therapy in her home due to familiar environment. If she can not get 24/7 assist at home then OT recommend SNF at ar. Subjective Pt. Remains in her recliner eating [...] Date: 08/03/2024 PCP: Jared Evans MD Room#: [id number] A BRIEF HOSPITAL COURSE: Mel is a 83 y.o. female with past medical history below who presents with chief complaint listed above.Patient is an 83 y/o female who presented to [facility] early this AM [place] and diarrhea. Patient reported she [...] pulmonary disease) (HCC) DVT (deep venous thrombosis) ([facility]) Essential hypertension 03/07/2020 GERD (gastroesophageal reflux disease) Hiatal hernia IBS (irritable bowel syndrome) Pure hypercholesterolemia 03/07/2020 PVD (peripheral vascular disease) ([facility]) Stroke ([facility]) LABS: CBC: No results for input(s): [...] MD Division of Hospitalist Medicine Acute care [facility] Hospitalist Progress Note 08/13/2024 Subjective: Admit Date: 08/03/2024 PCP: Jared Evans MD Room#: [id number] A BRIEF HOSPITAL COURSE: Mel is a 83 y.o. female with past medical history below who presents with chief complaint listed above.Patient is an 83 y/o female who presented to [place] [facility] early this AM [place] for [place] and diarrhea. Patient reported she [...] kidney disease COPD (chronic obstructive pulmonary disease) ([facility]) DVT (deep venous thrombosis) ([facility]) Essential hypertension 03/07/2020 GERD (gastroesophageal reflux disease) Hiatal hernia IBS (irritable bowel syndrome) Pure hypercholesterolemia 03/07/2020 PVD (peripheral vascular disease) ([facility]) Stroke ([facility]) LABS: CBC: No results for input(s): [...] Kael Anderson DO Division of Hospitalist Medicine [facility] Nutrition Assessment Type and Reason [...] No significant fluid accumulation (per flow sheets) Counselor Education Professor Strength: Not Performed Nutrition Assessment: 83 y.o. [...] On: Kcal/kg Weight Used for Energy Requirements: [place] Weight for Energy Calculation (kg): 54 kg Total Energy Requirements (kcals/day): 4152-9552 Weight Used for Protein Requirements: [place] Weight in Kg Used for Protein Requirements: [...] 160# 07/05) % Weight Change (Calculated): 12.2 [place] Body Weight (lbs) (Calculated): 119 lbs [place] Body Weight (Kg) (Calculated): 54 kg BMI [...] soon to determine Janki Fields RD Contact: *[phone] Hospitalist Progress Note 08/12/2024 Subjective: Admit Date: 08/03/2024 PCP: Jared Evans MD Room#: [id number] A BRIEF HOSPITAL COURSE: Mel is a 83 y.o. female with past medical history below who presents with chief complaint listed above.Patient is an 83 y/o female who presented to [place] [facility] early this AM from local [place] for vomiting and diarrhea. Patient reported she [...] Pure hypercholesterolemia 03/07/2020 PVD (peripheral vascular disease) ([facility]) Stroke ([facility]) LABS: CBC: No results for input(s): [...] Kael Anderson DO Division of Hospitalist Medicine [facility] Hospitalist Progress Note 08/11/2024 Subjective: Admit Date: 08/03/2024 PCP: Jared Evans MD Room#: [id number] A BRIEF HOSPITAL COURSE: Mel is a 83 y.o. female with past medical history below who presents with chief complaint listed above.Patient is an 83 y/o female who presented to [place] [facility] early this AM from local [place] for vomiting and diarrhea. Patient reported she [...] kidney disease COPD (chronic obstructive pulmonary disease) ([facility]) DVT (deep venous thrombosis) ([facility]) Essential hypertension 03/07/2020 GERD (gastroesophageal reflux disease) Hiatal hernia IBS (irritable bowel syndrome) Pure hypercholesterolemia 03/07/2020 PVD (peripheral vascular disease) ([facility]) Stroke ([facility]) LABS: CBC: No results for input(s): [...] Kael Anderson DO Division of Hospitalist Medicine [facility] Hospitalist Progress Note 08/10/2024 Subjective: Admit Date: 08/03/2024 PCP: Jared Evans MD Room#: [id number] A BRIEF HOSPITAL COURSE: Mel is a 83 y.o. female with past medical history below who presents with chief complaint listed above.Patient is an 83 y/o female who presented to [facility] early this AM from local [place] for vomiting and diarrhea. Patient reported she [...] Pure hypercholesterolemia 03/07/2020 PVD (peripheral vascular disease) ([facility]) Stroke ([facility]) LABS: CBC: No results for input(s): [...] Date: 08/03/2024 PCP: Jared Evans MD Room#: [id number] A BRIEF HOSPITAL COURSE: Mel is a 83 y.o. female with past medical history below who presents with chief complaint listed above.Patient is an 83 y/o female who presented to [place] early this AM from local [place] for vomiting and diarrhea. Patient reported she [...] pulmonary disease) (HCC) DVT (deep venous thrombosis) ([facility]) Essential hypertension 03/07/2020 GERD (gastroesophageal reflux disease) Hiatal hernia IBS (irritable bowel syndrome) Pure hypercholesterolemia 03/07/2020 PVD (peripheral vascular disease) ([facility]) Stroke ([facility]) LABS: CBC: No results for input(s): [...] Kael Anderson DO Division of Hospitalist Medicine [facility] Images from the original note were not included. OCCUPATIONAL THERAPY [facility] Initial Evaluation Name/MRN: Mel Pop ([id number]) Evaluation Date: 08/08/2024 Date of : 1940 Admission Date: 08/03/2024 2:22 AM Age: 83 y.o. 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[facility]) 07/27/2023 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 ([facility]) 07/27/2023 Bilateral pneumonia 06/16/2022 COVID-19 06/16/2022 Hypothyroidism 06/16/2022 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/16/2022 Cellulitis 05/18/2022 Nicotine use disorder 05/18/2022 Acute venous embolism and thrombosis of deep vessels of proximal end of right lower extremity ([facility]) 04/19/2024 Atrial fibrillation, unspecified type ([facility]) 04/19/2024 Irritable bowel syndrome with diarrhea 03/07/2020 Microscopic hematuria 03/07/2020 Left retinal detachment 03/07/2020 Hyperglycemia 03/07/2020 Osteopenia of left femoral neck 03/07/2020 senior living current use of anticoagulant therapy 03/07/2020 Seasonal allergies 03/07/2020 Chronic renal insufficiency, stage III (moderate) ([facility]) 03/07/2020 Major depression, single episode, in complete remission ([facility]) 03/07/2020 Gastroesophageal reflux disease without esophagitis 03/07/2020 Essential hypertension 03/07/2020 Pure hypercholesterolemia 03/07/2020 Overweight 03/07/2020 Psoriasis 03/07/2020 History of cerebrovascular accident 03/07/2020 Atrial fibrillation ([facility]) 03/07/2020 Chronic obstructive pulmonary disease ([facility]) 03/07/2020 Finger osteomyelitis, right ([facility]) 03/06/2020 Medical Precautions: Enhanced Contact Proper [...] Care supervision is transferred to a [facility] Therapy Services Occupational Therapist. Goals and/or treatment plan was established in collaboration with patient/family/other representatives. Shannon Copen MS, OTR/L Images from the original note were not included. PHYSICAL THERAPY [facility] Treatment Note Name/MRN: Mel Pop ([id number]) Date of : 1940 Age: 83 y.o. [facility] Discharge Recommendation: Usp Facility Equipment Needed: (pt uses FWW MANAGER ACQUISITION) Prior Level of Function Prior Level of [...] Goal: keep getting up, get back to [place]. Encounter Problems Encounter Problems (Active) Balance Patient [...] Date: 08/03/2024 PCP: Jared Evans MD Room#: [id number] A BRIEF HOSPITAL COURSE: Mel is a 83 y.o. female with past medical history below who presents with chief complaint listed above.Patient is an 83 y/o female who presented to [place] [facility] early this AM from local [place] for vomiting and diarrhea. Patient reported she [...] kidney disease COPD (chronic obstructive pulmonary disease) ([facility]) DVT (deep venous thrombosis) ([facility]) Essential hypertension 03/07/2020 GERD (gastroesophageal reflux disease) Hiatal hernia IBS (irritable bowel syndrome) Pure hypercholesterolemia 03/07/2020 PVD (peripheral vascular disease) ([facility]) Stroke ([facility]) LABS: CBC: Recent Labs 08/05/24 2343 [...] Kael Anderson DO Division of Hospitalist Medicine [facility] Hospitalist Progress Note 08/07/2024 Subjective: Admit Date: 08/03/2024 PCP: Jared Evans MD Room#: [id number] A BRIEF HOSPITAL COURSE: Mel is a 83 y.o. female with past medical history below who presents with chief complaint listed above.Patient is an 83 y/o female who presented to [place] [facility] early this AM from local [place] for vomiting and diarrhea. Patient reported she [...] Pure hypercholesterolemia 03/07/2020 PVD (peripheral vascular disease) ([facility]) Stroke ([facility]) LABS: CBC: Recent Labs 08/05/24 0358 08/05/24 [...] Kael Anderson DO Division of Hospitalist Medicine [facility] Hospitalist Progress Note 08/06/2024 Subjective: Admit Date: 08/03/2024 PCP: Jared Evans MD Room#: [id number] A BRIEF HOSPITAL COURSE: Mel is a 83 y.o. female with past medical history below who presents with chief complaint listed above.Patient is an 83 y/o female who presented to [place] [facility] early this AM from local [place] for vomiting and diarrhea. Patient reported she [...] pulmonary disease) (HCC) DVT (deep venous thrombosis) ([facility]) Essential hypertension 03/07/2020 GERD (gastroesophageal reflux disease) Hiatal hernia IBS (irritable bowel syndrome) Pure hypercholesterolemia 03/07/2020 PVD (peripheral vascular disease) ([facility]) Stroke ([facility]) LABS: CBC: Recent Labs 08/04/24 0447 [...] Fidel Mobile Relation: Mother Secondary Emergency Contact: Damairs Villafana DO NOT CALL-TERMINALLY ILL Mobile Relation: Friend Kayden Tatum MD Division of Hospitalist Medicine [facility] Images from the original note were not included. PHYSICAL THERAPY [facility] Initial Evaluation Name/MRN: Mel Pop ([id number]) Evaluation Date: 08/06/2024 Date of : 1940 Admission Date: 08/03/2024 2:22 AM Age: 83 y.o. [facility] Discharge Recommendation: Usp Facility (pt from SNF at baseline) Equipment Needed: (pt uses FWW MANAGER ACQUISITION) Assessment IMPRESSION: Pt's Vincent scoring has varied [...] SNF-level care (pt was receiving PT MANAGER ACQUISITION) Admitting Diagnosis: aspiration pneumonitis, + Norovirus. S/p [...] pulmonary disease) (HCC) DVT (deep venous thrombosis) ([facility]) Essential hypertension 03/07/2020 GERD (gastroesophageal reflux disease) Hiatal hernia IBS (irritable bowel syndrome) Pure hypercholesterolemia 03/07/2020 PVD (peripheral vascular disease) ([facility]) Stroke ([facility]) Past Surgical History: Past Surgical History: Procedure Laterality Date ANKLE SURGERY ARM SURGERY (HISTORICAL) Right COLONOSCOPY ESOPHAGEAL DILATION EYE SURGERY 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 HYSTERECTOMY ORTHOPEDIC SURGERY THROMBECTOMY Right 04/06/2024 RLE mechanical thrombectomy (Krzysztof) Admission Diagnosis: Patient Active Problem List Diagnosis Date Noted Aspiration pneumonitis (CMS/HCC) ([facility]) 08/03/2024 Visual disturbance, subjective 07/06/2024 Retinal detachment, right 07/05/2024 Vision loss of right eye 07/05/2024 Acute venous embolism and thrombosis of deep vessels of proximal lower extremity ([facility]) 04/14/2024 Peripheral arterial disease ([facility]) 04/03/2024 Immunodeficiency due to conditions classified elsewhere ([facility]) 07/27/2023 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 ([facility]) 07/27/2023 Bilateral pneumonia 06/16/2022 COVID-19 06/16/2022 Hypothyroidism 06/16/2022 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/16/2022 Cellulitis 05/18/2022 Nicotine use disorder 05/18/2022 Acute venous embolism and thrombosis of deep vessels of proximal end of right lower extremity ([facility]) 04/19/2024 Atrial fibrillation, unspecified type ([facility]) 04/19/2024 Irritable bowel syndrome with diarrhea 03/07/2020 Microscopic hematuria 03/07/2020 Left retinal detachment 03/07/2020 Hyperglycemia 03/07/2020 Osteopenia of left femoral neck 03/07/2020 senior living current use of anticoagulant therapy 03/07/2020 Seasonal allergies 03/07/2020 Chronic renal insufficiency, stage III (moderate) ([facility]) 03/07/2020 Major depression, single episode, in complete remission ([facility]) 03/07/2020 Gastroesophageal reflux disease without esophagitis 03/07/2020 Essential hypertension 03/07/2020 Pure hypercholesterolemia 03/07/2020 Overweight 03/07/2020 Psoriasis 03/07/2020 History of cerebrovascular accident 03/07/2020 Atrial fibrillation ([facility]) 03/07/2020 Chronic obstructive pulmonary disease ([facility]) 03/07/2020 Finger osteomyelitis, right ([facility]) 03/06/2020 Medical Precautions: Enhanced Contact Proper [...] OD Hearing: normal Social/Functional History Resident at [facility] [facility] at baseline. Goes to therapy and [...] Goal: keep getting up, get back to [place]. Encounter Problems Encounter Problems (Active) Balance Patient [...] Care supervision is transferred to a [facility] Therapy Services Physical Therapist. Goals and/or treatment plan was established in collaboration with patient/family/other representatives. Hospitalist Progress Note 08/05/2024 Subjective: Admit Date: 08/03/2024 PCP: Jared Evans MD Room#: [id number]/[id number] A BRIEF HOSPITAL COURSE: Mel is a 83 y.o. female with past medical history below who presents with chief complaint listed above.Patient is an 83 y/o female who presented to [place] [facility] early this AM from local [place] for vomiting and diarrhea. Patient reported she [...] pulmonary disease) (HCC) DVT (deep venous thrombosis) ([facility]) Essential hypertension 03/07/2020 GERD (gastroesophageal reflux disease) Hiatal hernia IBS (irritable bowel syndrome) Pure hypercholesterolemia 03/07/2020 PVD (peripheral vascular disease) ([facility]) Stroke ([facility]) LABS: CBC: Recent Labs 08/03/24 0251 [...] Kayden Tatum MD Division of Hospitalist Medicine [facility] Images from the original note were not included. PHYSICAL THERAPY [facility] Name/MRN: Mel Pop ([id number]) Date: 08/05/2024 PT orders received per Vincent activity/mobility score. Patient currently with Vincent activity/mobility score greater than 2. Per therapy services guidelines, will discharge PT orders. Please place regular PT eval/treat orders if deemed appropriate. Padmaja Wilson PT Hospitalist Progress Note 08/04/2024 Subjective: Admit Date: 08/03/2024 PCP: Jared Evans MD Room#: [id number]/[id number] A BRIEF HOSPITAL COURSE: Mel is a 83 y.o. female with past medical history below who presents with chief complaint listed above.Patient is an 83 y/o female who presented to [facility] early this AM from local [place] for vomiting and diarrhea. Patient reported she [...] kidney disease COPD (chronic obstructive pulmonary disease) ([facility]) DVT (deep venous thrombosis) ([facility]) Essential hypertension 03/07/2020 GERD (gastroesophageal reflux disease) Hiatal hernia IBS (irritable bowel syndrome) Pure hypercholesterolemia 03/07/2020 PVD (peripheral vascular disease) ([facility]) Stroke ([facility]) LABS: CBC: Recent Labs 08/03/24 [id number]/[id number] WBC [...] Kayden Tatum MD Division of Hospitalist Medicine [facility] documented in this encounter [facility] 08-15-2024 Plan of care note Problem: Knowledge [...] My discharge needs are met Outcome: Progressing [facility] 08-15-2024 Note Formatting of this n ote might be different from the original. Authorization is pending with [employer]. Ref# [id number] to be DC'd to [facility]. Dtr Fidel Updated. CM to follow. [facility] 08-15-2024 Note Formatting of this n ote might be different from the original. Authorization is pending with [employer]. Ref# [id number] to be DC'd to [facility]. Dtr Fidel Updated. CM to follow. [facility] 08-15-2024 Note Patient progressing toward all goals. [facility] 08-15-2024 Plan of care note Patient progressing toward all goals. [facility] 08-14-2024 Plan of care note Problem: [...] My discharge needs are met Outcome: Progressing [facility] 08-14-2024 Hospital Discharge instructions Devika Escobar MD [...] Hyperglycemia Osteopenia of left femoral neck senior living current use of anticoagulant therapy Seasonal allergies [...] assistance Toileting Total assistance Feeding Minimal assistance Personnel Worker Minimal assistance Med Delivery yes Wound Care [...] Date: 08/03/2024 Discharging to Facility/ Agency Name: [facility] Address: [address] [place] [address] Fax: Dialysis Facility (if applicable) Name: Address: Dialysis Schedule: Phone: Fax: Clin Application Specialist/Decorating Kiln Operator signature: ICIAN SECTION Name: Mel Pop Prognosis: good Condition at Discharge: stable Rehab Potential (if transferring to Rehab): good Recommended Labs or Other Treatments After Discharge: none The individual is being admitted to a nursing facility directly from an [facility] or a unit of a [facility] that is not operated by or licensed by [facility] under section 5119.14 or 5160-3-15.1 5 The individual requires the level of services provided by a nursing facility for the condition for which he or she was treated in the hospital and, Physician Certification: I certify the above information and transfer of Mel Pop is necessary for the continuing treatment of the diagnosis listed and that she requires jail facility for less than 30 days. Update Admission H&P: No change in H&P PHYSICIAN SIGNATURE: documented in this encounter [facility] 08-14-2024 Note Formatting of this n ote might be different from the original. Pt has Been accepted to [facility]. Need PT/OT to see so auth to be started. Therapy to see today was sent. Called and spoke with braxton [facility]. SNF tasked w update. CM to follow. [facility] 08-14-2024 Note Formatting of this n ote might be different from the original. Pt has Been accepted to [facility]. Need PT/OT to see so auth to be started. Therapy to see today was sent. Called and spoke with braxton [facility]. SNF tasked w update. CM to follow. [facility] 08-13-2024 Plan of care note Problem: Knowledge [...] discharge needs are met Outcome: Progressing [facility] 08-13-2024 Note Formatting of this n ote might be different from the original. Referral placed to [facility] via [facility] per TCC request. Await review and response regarding ability to accept. TCC notified. Electronically signed by Christine Morataya [facility], 08-13-2024 at 3:00 PM [facility] 08-13-2024 Note Formatting of this n ote might be different from the original. Referral placed to SNF- [facility] via [facility]port per TCC request. Await review and response regarding ability to accept. TCC notified. Electronically signed by Christine Morataya CMA, 08-13-2024 at 3:00 PM [facility] 08-13-2024 Note Referral placed to S - [facility] via Careport per TCC request. Await review and response regarding ability to accept. TCC notified. Electronically signed by Christine Morataya [facility], 08-13-2024 at 3:00 PM [facility] 08-13-2024 Note Formatting of this n ote might be different from the original. Called dgt to talk about dc planning. Dgt continues to tour SNFs this evening, since she was sick this weekend. Provided me with two more SNF choices. [facility]. Tasked [facility] to create these referrals. CM to follow. [facility] 08-13-2024 Note Formatting of this n ote might be different from the original. Called dgt to talk about dc planning. Dgt continues to tour SNFs this evening, since she was sick this weekend. Provided me with two more SNF choices. [facility]. Tasked [employer]ESS [employer] to create these referrals. CM to follow. [facility] 08-13-2024 Plan of care note Problem: [...] discharge needs are met Outcome: Progressing [facility] 08-12-2024 Note Problem: Knowledge D eficit Goal: Patient/family/caregiver demonstrates understanding of disease process, treatment plan, medications, and discharge instructions Outcome: Progressing [facility] 08-12-2024 Plan of care note Problem: Knowledge Deficit Goal: Patient/family/caregiver demonstrates understanding of disease process, treatment plan, medications, and discharge instructions Outcome: Progressing [facility] 08-12-2024 Plan of care note Problem: [...] My discharge needs are met Outcome: Progressing [facility] 08-11-2024 Plan of care note Problem: Knowledge [...] discharge needs are met Outcome: Progressing [facility] 08-11-2024 Note Formatting of this n ote might be different from the original. CM noted DC orders in place, Dgt touring facilities over the weekend. [facility]. [facility] pending acceptance, updates sent via careport. [facility] 08-11-2024 Note Formatting of this n ote might be different from the original. JOSH noted DC orders in place, Dgt touring facilities over the weekend. Moira. [facility] pending acceptance, updates sent via careport. [facility] 08-11-2024 Plan of care note Problem: [...] Goal: Assess Nutritional Intake Outcome: Progressing [facility] 08-10-2024 Note Formatting of this n ote might be different from the original. Referral placed to [facility] via Careport per TCC request. Await review and response regarding ability to accept. TCC notified. Electronically signed by Christine Morataya [facility], 08-10-2024 at 9:23AM [facility] 08-10-2024 Note Formatting of this n ote might be different from the original. Referral placed to [facility] via [facility]port per TCC request. Await review and response regarding ability to accept. TCC notified. Electronically signed by Christine Morataya CMA, 08-10-2024 at 9:23AM [facility] 08-10-2024 Note Referral placed to [facility] via Careport per TCC request. Await review and response regarding ability to accept. TCC notified. Electronically signed by Christine Morataya CMA, 08-10-2024 at 9:23AM [facility] 08-10-2024 Note Formatting of this n ote might be different from the original. Pt was to be DC to [facility]. Found out pt and dtr didn't want to return to [facility]. SNF was made aware. On adm spoke with Dtr Fidel, ok to return. Called Dtr this am, after speaking with pt and things that happened and didn't happen. Fidel requesting a referral to be made to [facility]. HARNESS FITTER tasked to send. A SNF list was emailed to FidelArnold [email or web address]. She will tour facilities over weekend. CM to follow. [facility] 08-10-2024 Note Formatting of this n ote might be different from the original. Pt was to be DC to [facility]. Found out pt and dtr didn't want to return to [facility]. SNF was made aware. On adm spoke with Dtr Fidel, ok to return. Called Dtr this am, after speaking with pt and things that happened and didn't happen. Fidel requesting a referral to be made to [facility]. HARNESS FITTER tasked to send. A SNF list was emailed to Fidel. [email or web address]. She will tour facilities over weekend. CM to follow. [facility] 08-10-2024 Plan of care note Problem: Knowledge [...] Interventions Goal: Assess Nutritional Intake Outcome: Progressing [facility] 08-09-2024 Note Formatting of this n ote might be different from the original. Discharge summary and med list sent via Careport to [facility] per TCC request. [facility] 08-09-2024 Note Formatting of this n ote might be different from the original. Discharge summary and med list sent via [facility]port to [facility] per [facility] request. [facility] 08-09-2024 Note Discharge summary an d med list sent via Careport to [facility] per [facility] request. [facility] 08-09-2024 Note Formatting of this n ote might be different from the original. Auth received. Patient with active dc orders. Transportation arranged through [employer] with estimated machine operator hop picker time of 1930. VM left with daughter Fidel along with 3N phone number to call with questions. Bedside RN aware. Facility updated. [facility] supervisor winter sent orders to [facility]. [facility] 08-09-2024 Note Formatting of this n ote might be different from the original. Auth received. Patient with active dc orders. Transportation arranged through [employer] with estimated machine operator hop picker time of 1930. left with milady Stokes along with 3N phone number to call with questions. Bedside RN aware. Facility updated. [facility] supervisor winter sent orders to [facility]. [facility] 08-09-2024 Note Formatting of this n ote might be different from the original. customer consulting manager was asked to assist with setting up transport back to [facility] this evening. physician office secretary had already done so, but this manager combination called daughter to inform her of discharge and transport set up. Daughter did not wish patient to return to the SNF. Upkeep Worker told her that patient is medically stable for dc and that she should continue the discussion with the high school social studies teacher and academic administrator at The snf, and also get options from [employer]. Coordinator was to message the snf about return this evening via [facility]Port. [facility] 08-09-2024 Note Formatting of this n ote might be different from the original. customer consulting manager was asked to assist with setting up transport back to [facility] this evening. physician office secretary had already done so, but this manager combination called daughter to inform her of discharge and transport set up. Daughter did not wish patient to return to the SNF. Upkeep Worker told her that patient is medically stable for dc and that she should continue the discussion with the high school social studies teacher and academic administrator at [facility], and also get options from [employer]. Coordinator was to message the snf about return this evening via [facility]. [facility] 08-09-2024 Note [facility] 08-09-2024 Hospital course Narrative Hospitalist [...] Pure hypercholesterolemia 03/07/2020 PVD (peripheral vascular disease) ([facility]) Stroke ([facility]) Procedures: NA Hospital Course: Mel is a 83 y.o. female with past medical history below who presents with chief complaint listed above.Patient is an 83 y/o female who presented to [place] [facility] early this AM from local [facility] for vomiting and diarrhea. Patient reported she [...] Ellipta 100-62.5-25 MCG/ACT aerosol powder Generic drug: Cokxdaqanin-Qexfaatxe-Osgnuq STOP taking these medications enoxaparin 80 MG/0.8ML [...] Complexity: follow up within 7-14 calendar days (28485) [x] Severe Complexity: follow up within 7 calendar days (88836) Follow up Testing, Pending results or Referrals [...] frame. Signed: Kael Anderson DO [facility] 08/09/2024, 4:23 PM documented in this encounter [facility] 08-09-2024 Note Formatting of this n ote might be different from the original. Updated PT/OT notes placed to [facility] via Careport per TCC request. Await review and response regarding ability to accept. TCC notified. Electronically signed by [facility] Aracelis Gardiner [facility] 08-09-2024 Note Formatting of this n ote might be different from the original. Updated PT/OT notes placed to [facility] via [facility]port per TCC request. Await review and response regarding ability to accept. TCC notified. Electronically signed by [facility] Aracelis Gardiner [facility] 08-09-2024 Note Formatting of this n ote might be different from the original. Patient is medically ready for dc. PT/OT both continuing to recommend SNF. HARNESS FITTER manager combination asked to start auth. Plan to dc back to [facility] pending auth [facility] 08-09-2024 Note Formatting of this n ote might be different from the original. Patient is medically ready for dc. PT/OT both continuing to recommend SNF. HARNESS FITTER manager combination asked to start auth. Plan to dc back to [facility] pending auth [facility] 08-08-2024 Note Formatting of this n ote might be different from the original. I was off Yesterday, PT note was in from Tuesday. Therapy to see today was sent out to OT Tuesday to see yesterday. Pt was not seen. I did sent a therapy to see today to PT/OT so an auth can be started. Pt will Be Dc'd to [facility]. CM to follow. [employer] 08-08-2024 Note Formatting of this n ote might be different from the original. I was off Yesterday, PT note was in from Tuesday. Therapy to see today was sent out to OT Tuesday to see yesterday. Pt was not seen. I did sent a therapy to see today to PT/OT so an auth can be started. [facility]. CM to follow. [facility] 08-07-2024 Plan of care note Problem: Knowledge Deficit Goal: Patient/family/caregiver demonstrates understanding of disease process, treatment plan, medications, and discharge instructions Outcome: Progressing Problem: Potential for Compromised Skin Integrity Goal: Skin Integrity is Maintained or Improved Outcome: Progressing Goal: Nutritional status is improving Outcome: Progressing [facility] 08-07-2024 Plan of care note Problem: Knowledge [...] Interventions Goal: Assess Nutritional Intake Outcome: Progressing [facility] 08-07-2024 Note Formatting of this n ote might be different from the original. Case Management Progress Note: Patient remains on 5N for concern with aspiration 2/2 vomiting. Discharge Plan: Return to [facility]. Therapy eval needed for precert. TCC to assist and follow as needed. [facility] 08-07-2024 Note Formatting of this n ote might be different from the original. Case Management Progress Note: Patient remains on 5N for concern with aspiration 2/2 vomiting. Discharge Plan: Return to [facility]. Therapy eval needed for precert. TCC to assist and follow as needed. [facility] 08-07-2024 Plan of care note Problem: Knowledge [...] Interventions Goal: Assess Nutritional Intake Outcome: Progressing [facility] 08-06-2024 Plan of care note Problem: Knowledge [...] Interventions Goal: Assess Nutritional Intake Outcome: Progressing [facility] 08-06-2024 Note Formatting of this n ote might be different from the original. Pt cont's on IV AtBs'. Plan is for pt to return to [facility]. Auth and HECTOR needed prior to DC. CM to follow. [facility] 08-06-2024 Note Formatting of this n ote might be different from the original. Pt cont's on IV AtBs'. Plan is for pt to return to [facility]. Auth and HECTOR needed prior to DC. CM to follow. [facility] 08-06-2024 Note Formatting of this n ote might be different from the original. Per attending pt ready for DC. Pt will return to [facility]. Pt needs PT/OT to start auth Therapy to see put in for alistair so auth can be started. HECTOR will need completed. CM to follow. [facility] 08-06-2024 Note Formatting of this n ote might be different from the original. Per attending pt ready for DC. Pt will return to [facility]. Pt needs PT/OT to start auth Therapy to see put in for alistair so auth can be started. HECTOR will need completed. CM to follow. [facility] 08-06-2024 Consult note Associated Order (s): IP [...] assess Fluid Accumulation: No significant fluid accumulation Counselor Education Professor Strength: Not Performed Nutrition Assessment: Pt hx HTN, stroke, COPD, CKD, IBS. Admitted w/ vomiting and diarrhea. +norovirus. Started on abx for concern of aspiration pna. Pt's symptoms have improved during admission. Consuming and tolerating CLD. Medically stable for discharge back to SNF per notes. Estimated Daily Nutrient Needs: Energy Requirements Based On: Kcal/kg Weight Used for Energy Requirements: [place] Weight for Energy Calculation (kg): 54 kg Total Energy Requirements (kcals/day): 7919-3181 Weight Used for Protein Requirements: [place] Weight in Kg Used for Protein Requirements: [...] 160# 07/05) % Weight Change (Calculated): 12.2 [place] Body Weight (lbs) (Calculated): 119 lbs [place] Body Weight (Kg) (Calculated): 54 kg BMI [...] to determine Gabriella Michelle RD, LD Contact: [phone] [facility] 08-06-2024 Consult note Associated Order (s): IP [...] assess Fluid Accumulation: No significant fluid accumulation Counselor Education Professor Strength: Not Performed Nutrition Assessment: Pt hx HTN, stroke, COPD, CKD, IBS. Admitted w/ vomiting and diarrhea. +norovirus. Started on abx for concern of aspiration pna. Pt's symptoms have improved during admission. Consuming and tolerating CLD. Medically stable for discharge back to SNF per notes. Estimated Daily Nutrient Needs: Energy Requirements Based On: Kcal/kg Weight Used for Energy Requirements: [place] Weight for Energy Calculation (kg): 54 kg Total Energy Requirements (kcals/day): 8769-4488 Weight Used for Protein Requirements: [place] Weight in Kg Used for Protein Requirements: [...] 160# 07/05) % Weight Change (Calculated): 12.2 [place] Body Weight (lbs) (Calculated): 119 lbs [place] Body Weight (Kg) (Calculated): 54 kg BMI [...] to determine Gabriella Michelle RD, LD Contact: [phone] documented in this encounter [facility] 08-06-2024 Plan of care note Problem: Knowledge Deficit Goal: Patient/family/caregiver demonstrates understanding of disease process, treatment plan, medications, and discharge instructions Outcome: Progressing Problem: Potential for Compromised Skin Integrity Goal: Skin Integrity is Maintained or Improved Outcome: Progressing Goal: Nutritional status is improving Outcome: Progressing Problem: Urinary Incontinence Goal: Perineal skin integrity is maintained or improved Outcome: Progressing [facility] 08-05-2024 Plan of care note Problem: Knowledge Deficit Goal: Patient/family/caregiver demonstrates understanding of disease process, treatment plan, medications, and discharge instructions Outcome: Progressing Problem: Potential for Compromised Skin Integrity Goal: Skin Integrity is Maintained or Improved Outcome: Progressing Goal: Nutritional status is improving Outcome: Progressing Problem: Urinary Incontinence Goal: Perineal skin integrity is maintained or improved Outcome: Progressing [facility] 08-04-2024 Plan of care note Problem: Knowledge Deficit Goal: Patient/family/caregiver demonstrates understanding of disease process, treatment plan, medications, and discharge instructions Outcome: Progressing Problem: Potential for Compromised Skin Integrity Goal: Skin Integrity is Maintained or Improved Outcome: Progressing Goal: Nutritional status is improving Outcome: Progressing Problem: Urinary Incontinence Goal: Perineal skin integrity is maintained or improved Outcome: Progressing [facility] 08-04-2024 Nurse Note Bedside swallow completed. Pt passed and tolerated well tolerated well. [facility] 08-04-2024 Plan of care note Problem: Knowledge Deficit Goal: Patient/family/caregiver demonstrates understanding of disease process, treatment plan, medications, and discharge instructions Outcome: Progressing Problem: Potential for Compromised Skin Integrity Goal: Skin Integrity is Maintained or Improved Outcome: Progressing Goal: Nutritional status is improving Outcome: Progressing Problem: Urinary Incontinence Goal: Perineal skin integrity is maintained or improved Outcome: Progressing [facility] 08-03-2024 Plan of care note Problem: [...] by Lima Saenz RN Outcome: Progressing [facility] 08-03-2024 Note Formatting of this n ote might be different from the original. Return referral placed to [facility] via Careport per TCC request. Await review and response regarding ability to accept. TCC notified. [facility] 08-03-2024 Note Formatting of this n ote might be different from the original. Return referral placed to [facility] via Careport per TCC request. Await review and response regarding ability to accept. TCC notified. [facility] 08-03-2024 Note Return referral plac ed to [facility] via Careport per TCC request. Await review and response regarding ability to accept. TCC notified. [facility] 08-03-2024 Note Formatting of this n ote might be different from the original. Pt to ED w N/V/Diarrhea, was Dx w Aspiration pneumonitis. Started on IV ATB's. Called pt's DtrFidel, . Pt is from [facility]. Plan on returning. [facility] tasked to send a return referral. [facility] 08-03-2024 Note Formatting of this n ote might be different from the original. Pt to ED w N/V/Diarrhea, was Dx w Aspiration pneumonitis. Started on IV ATB's. Called pt's DtrFidel, . Pt is from [facility]. Plan on returning. [facility] tasked to send a return referral. [facility] 08-03-2024 History and physical note Attending History and Physical Admit Date: 08/03/2024 PCP: Jared Evans MD CHIEF COMPLAINT: vomiting/diarrhea Reason for Admission: aspiration pneumonitis History Obtained From: patient HISTORY OF PRESENT ILLNESS: Mel is a 83 y.o. female with past medical history below who presents with chief complaint listed above.Patient is an 83 y/o female who presented to [facility] early this AM from local [place] for vomiting and diarrhea. Patient reported she [...] min Stress: Patient Unable To Answer (08/03/2024) Citizen Of [place] [facility] - Occupational Stress Questionnaire Feeling of Stress : Patient unable to answer Social Connections: Unknown (08/03/2024) Social Connection and Isolation Panel [NHANES] Frequency of Communication with Friends and Family: Patient unable to answer Frequency of Social Gatherings with Friends and Family: Patient unable to answer Attends Jainism Services: Patient unable to answer Active Member of Clubs or Organizations: Patient unable to answer Attends Club or Organization Meetings: Never Marital Status: Patient unable to answer Recent Concern: Social Connections - Moderately Isolated (06/20/2024) Received from [facility] Social Connection and Isolation Panel [NHANES] Frequency of Communication with Friends and Family: More than three times a week Frequency of Social Gatherings with Friends and Family: Once a week Attends Jainism Services: More than 4 times per year [...] mgmt was pursued: - inpatient admission to [facility] tele - check stool studies and [...] - DO NOT do CPR, intubation] [_] [DNR-CEMENT LOADER - Comfort care only] [_] DNR form [...] sounds present no guarding or regular rigidity [employer] Work Phone: 08-03-2024 Note [employer] [facility] 08-03-2024 History and physical note Attending History and Physical Admit Date: 08/03/2024 PCP: Jared Evans MD CHIEF COMPLAINT: vomiting/diarrhea Reason for Admission: aspiration pneumonitis History Obtained From: patient HISTORY OF PRESENT ILLNESS: Mel is a 83 y.o. female with past medical history below who presents with chief complaint listed above.Patient is an 83 y/o female who presented to [place] [facility] early this AM from local [place] for vomiting and diarrhea. Patient reported she [...] min Stress: Patient Unable To Answer (08/03/2024) Citizen [place] [facility] - Occupational Stress Questionnaire Feeling of Stress : Patient unable to answer Social Connections: Unknown (08/03/2024) Social Connection and Isolation Panel [NHANES] Frequency of Communication with Friends and Family: Patient unable to answer Frequency of Social Gatherings with Friends and Family: Patient unable to answer Attends Jainism Services: Patient unable to answer Active Member [...] Friends and Family: Once a week Attends Jainism Services: More than 4 times per year [...] mgmt was pursued: - inpatient admission to [facility] tele - check stool studies and [...] - DO NOT do CPR, intubation] [_] [DNR-CEMENT LOADER - Comfort care only] [_] DNR form [...] Shivani Dimas PA-C Division of Hospitalist Medicine [facility] Cosigned by Abbi Long DO [...] or regular rigidity documented in this encounter [facility] 08-03-2024 Plan of care note Problem: Potential for Compromised Skin Integrity Goal: Skin Integrity is Maintained or Improved 08/03/2024 0842 by Lima Saenz RN Outcome: Progressing 08/03/2024 0842 by Lima Saenz RN Outcome: Progressing Problem: Potential for Compromised Skin Integrity Goal: Nutritional status is improving 08/03/2024 0842 by Lima Saenz RN Outcome: Progressing 08/03/2024 0842 by Lima Saenz RN Outcome: Progressing [facility] 08-03-2024 Plan of care note Problem: Knowledge Deficit Goal: Patient/family/caregiver demonstrates understanding of disease process, treatment plan, medications, and discharge instructions Outcome: Progressing Problem: Potential for Compromised Skin Integrity Goal: Skin Integrity is Maintained or Improved Outcome: Progressing [facility] 08-03-2024 Emergency department Note Pt placed in roundtrip [facility] 08-03-2024 Emergency department Note Pt placed in [...] who presents to the emergency department from [facility] for acute onset nausea/vomiting/diarrhea x 3 episodes that began 45 minutes prior to arrival. No blood in emesis or diarrhea. Given single dose of Zofran by custodial staff following first episode but subsequently soon [...] 45 minutes prior to ED transport for custodial. jail reports a second resident with similar symptoms earlier today. No known flu or COVID exposures. Patient denying other flu or COVID symptoms such as headache, myalgias, fevers, congestion, cough. Nursing Notes were reviewed. Limitations to history: None Outside historians: jail staff (Jabari) REVIEW OF SYSTEMS Review of [...] Resource Strain: Low Risk (06/20/2024) Received from [facility] Overall Financial Resource Strain (CARDIA) Difficulty of Paying Living Expenses: Not very hard Food Insecurity: No Food Insecurity (07/09/2024) Received from [facility] Hunger Vital Sign Worried About Running Out of Food in the Last Year: Never true Ran Out of Food in the Last Year: Never true Transportation Needs: No Transportation Needs (07/09/2024) Received from [facility] PRAPARE - Transportation Lack of Transportation (Medical): No Lack of Transportation (Non-Medical): No Physical Activity: Inactive (04/04/2024) Exercise Vital Sign Days of Exercise per Week: 0 days Minutes of Exercise per Session: 0 min Stress: No Stress Concern Present (06/19/2024) Received from [facility] - Occupational Stress Questionnaire Feeling of Stress : Not at all Social Connections: Moderately Isolated (06/20/2024) Received from [facility] Social Connection and Isolation Panel [NHANES] Frequency of Communication with Friends and Family: More than three times a week Frequency of Social Gatherings with Friends and Family: Once a week Attends Jainism Services: More than 4 times per year Active Member of Clubs or Organizations: No Attends Club or Organization Meetings: Never Marital Status: Intimate Partner Violence: Not At Risk (06/19/2024) Received from [facility] Domestic Abuse Assessment Do you feel safe in your relationships at home?: Yes Physical Abuse: Denies Verbal Abuse: Denies Housing Stability: Low Risk (07/09/2024) Received from [facility] Housing Stability Vital Sign Unable [...] No bowel dilatation Report Dictated on Workstation: [employer] Electronically Signed By: Ming Fry MD Electronically Signed Date/Time: 08/03/2024 4:05 AM EST XR chest 1 view Final Result No acute abnormality Report Dictated on Workstation: [employer] Electronically Signed By: Ming Fry MD Electronically [...] In compliance with this authorization, please visit www.fda.gov/media/398230/download or www.fda.gov/media/627054/download to access the applicable information sheets. LIPASE [...] who presents to the emergency department from [facility] for acute onset nausea/vomiting/diarrhea x 3 episodes that began 45 minutes prior to arrival. No blood in emesis or diarrhea. Given single dose of Zofran by custodial staff following first episode of emesis but [...] 45 minutes prior to ED transport for custodial. jail reports a second resident with similar symptoms [...] baseline. Patient admitted to medical service at [facility] under Dr. Parrish. ED Medications managed: Medications [...] 0406) FINAL IMPRESSION 1. Aspiration pneumonitis (CMS/HCC) ([facility]) 2. Vomiting and diarrhea 3. LORENZA (acute kidney injury) ([facility]) DISPOSITION Observation 08/03/2024 04:20:39 AM PATIENT [...] DO 08/03/24 0422 documented in this encounter [facility] 08-03-[address] and ED xray notified that patient is ready [facility] 08-03-2024 Physician Emergency department Note EMERGENCY [...] who presents to the emergency department from [facility] for acute onset nausea/vomiting/diarrhea x 3 episodes that began 45 minutes prior to arrival. No blood in emesis or diarrhea. Given single dose of Zofran by custodial staff following first episode but subsequently soon [...] 45 minutes prior to ED transport for custodial. jail reports a second resident with similar symptoms earlier today. No known flu or COVID exposures. Patient denying other flu or COVID symptoms such as headache, myalgias, fevers, congestion, cough. Nursing Notes were reviewed. Limitations to history: None Outside historians: jail staff (Jabari) REVIEW OF SYSTEMS Review of [...] Resource Strain: Low Risk (06/20/2024) Received from [facility] Overall Financial Resource Strain (CARDIA) Difficulty of Paying Living Expenses: Not very hard Food Insecurity: No Food Insecurity (07/09/2024) Received from [facility] Hunger Vital Sign Worried About Running Out of Food in the Last Year: Never true Ran Out of Food in the Last Year: Never true Transportation Needs: No Transportation Needs (07/09/2024) Received from [facility] PRAPARE - Transportation Lack of Transportation (Medical): No Lack of Transportation (Non-Medical): No Physical Activity: Inactive (04/04/2024) Exercise Vital Sign Days of Exercise per Week: 0 days Minutes of Exercise per Session: 0 min Stress: No Stress Concern Present (06/19/2024) Received from [facility] - Occupational Stress Questionnaire Feeling of Stress : Not at all Social Connections: Moderately Isolated (06/20/2024) Received from [facility] Social Connection and Isolation Panel [NHANES] Frequency of Communication with Friends and Family: More than three times a week Frequency of Social Gatherings with Friends and Family: Once a week Attends Jainism Services: More than 4 times per year Active Member of Clubs or Organizations: No Attends Club or Organization Meetings: Never Marital Status: Intimate Partner Violence: Not At Risk (06/19/2024) Received from [facility] Domestic Abuse Assessment Do you feel safe in your relationships at home?: Yes Physical Abuse: Denies Verbal Abuse: Denies Housing Stability: Low Risk (07/09/2024) Received from [facility] Housing Stability Vital Sign Unable [...] In compliance with this authorization, please visit www.fda.gov/media/220675/download or www.fda.gov/media/731428/download to access the applicable information sheets. LIPASE [...] who presents to the emergency department from [place] [facility]di[facility] x 3 episodes that began 45 minutes prior to arrival. No blood in emesis or diarrhea. Given single dose of Zofran by custodial staff following first episode of emesis but [...] 45 minutes prior to ED transport for custodial. jail reports a second resident with similar symptoms [...] baseline. Patient admitted to medical service at [facility] under Dr. Parrish. ED Medications managed: Medications [...] 0406) FINAL IMPRESSION 1. Aspiration pneumonitis (CMS/HCC) ([facility]) 2. Vomiting and diarrhea 3. LORENZA (acute kidney injury) ([facility]) DISPOSITION Observation 08/03/2024 04:20:39 AM PATIENT [...] Medicine Provider Mariana King DO 08/03/24 0422 [facility] 08-01-2024 Instructions Savana Lopez MD - 08/01/2024 1:06 PM EST - Continue Pred forte 4x / day right eye - Stop Cipro - Stop Brimonidine - Continue erythromycin antibiotic ointment as needed - Continue Atropine daily RIGHT eye - Continue Timolol 2x / day RIGHT EYE documented in this encounter [facility] 08-01-2024 Note HNO ID: [id number] Author: SAVANA LOPEZ MD Service: ? 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 documented in this encounter [facility] 07-30-2024 Note HNO ID: [id number] Author: JOHN PHELAN MD Service: ? Author [...] of its relevant components. [facility] 07-30-2024 Note HNO ID: [id number] Author: JOHN PHELAN MD Service: ? Author [...] of its relevant components. [facility] 07-27-2024 Instructions Nicolas Sahu MD - [...] day Ciprofloxacin (flores cap) 4x daily Atropine (rare/endangered species specialist) 1x daily Continue timolol (yellow cap) 2x [...] C Trouble breathing Contact Dr. Savana Lopez [phone] weekdays from 8am-5pm During non-business hours, please call [phone] or ext [phone] and ask for the eye doctor information technology security analyst. documented in this encounter [facility] 07-27-2024 Note HNO ID: [id number] Author: NICOLAS SAHU MD Service: ? Author [...] MD Vitreoretinal Surgery Fellow [facility] 07-27-2024 History of Present illness Narrative [...] Vitreoretinal Surgery Fellow documented in this encounter [facility] 07-27-2024 Note HNO ID: [id number] Author: MIKHAIL NICHOLS APRN.LAND MANAGER Service: ? Author Type: Nurse Manpower Development Specialist Type: Anesthesia Procedure Notes Filed: 07/27/2024 11:25 Note Text: ANESTHESIOLOGY PROCEDURE NOTE Airway General Information Procedure Start Time/Medication Administration: 07/27/2024 11:21 AM Procedure End Time: 07/27/2024 11:24 AM Staffing Anesthesiologist: Robinson Brunner MD LAND MANAGER: Mikhail Nichols APRN.LAND MANAGER Performed by: anesthesiologist and LAND MANAGER Indications and Patient Condition Indications for airway management: anesthesia Preoxygenated: yes Patient position: sniffing Method: asleep Final Airway Details Final airway type: supraglottic airway Number of attempts at approach: 1 Final Supraglottic Airway: LMA Classic Size 4 Seal Adequate: yes Failed airway: no Unrecognized esophageal intubation: no SIGNATURE: Mikhail Nichols APRN.LAND MANAGER PATIENT NAME: Mel Castillo DATE: July 27, 2024 TIME: 11:24 AM CSN: [id number] [facility] 07-24-2024 Note Date of Procedure 07/23/2024. Glass Edger Information Reimbursement Representative: WESLEY. Start time: 10:44 AM. No view. In wheelchair. Unable to get low enough for photo in downgaze without discomfort. Notes Hazy view, VH; choroidals; possible RD [facility] 07-24-2024 Note Date of Procedure 07/23/2024. Glass Edger Information STEWART Donovan CDOS 07/23/2024 11:24 AM [...] 20mg - Decrease atropine daily right eye (rare/endangered species specialist) - Continue prednisolone QID right eye (pink [...] than 30 days before your surgery. My compensation coordinator will be contacting you to schedule this appointment. Your exact time of surgery will not be determined until the day before surgery. My compensation coordinator will call you the day before your surgery to advise you what time to arrive at the [facility] on the first floor at the [facility]. My compensation coordinator is Gaston, her number is [phone] Please do no wear contact lenses. We [...] fellow. It will be at the [facility] on the 2nd floor. We will review [...] Regine Gan in the Pre-anesthesia Consultation Clinic ([phone]) to get instructions on their use before [...] call Regine Gan or a Pre-Anesthesia Testing velvet steamer at [phone]. documented in this encounter [facility] 07-23-2024 Note HNO ID: [id number] Author: SAVANA LOPEZ MD Service: ? 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 [facility] 07-23-2024 History of Present illness Narrative [...] to HTN (SBP 199/99 at presentation to [facility]) and anticoagulation that led to angle closure [...] its relevant components. documented in this encounter [facility] 07-18-2024 Note HNO ID: [id number] Author: JACI JUAREZ RN Service: Nursing Author Type: Registered Nurse Type: Progress Notes Filed: 07/18/2024 14:08 Note Text: Report given to nurse at [facility]. Transport running behind schedule. [facility] 07-16-2024 Note HNO ID: [id number] Author: MICHAEL SOARES MD Service: Ophthalmology Author Type: Resident Type: Plan of Care Filed: 07/16/2024 21:02 Note Text: Patient evaluated today at [facility] by retina attending Dr. Lopez. 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 - I will see her in 1 week for repeat B-scan OD / Optos OD" [facility] 07-16-2024 Note HNO ID: [id number] Author: ALAINA TIPTON RN Service: ? Author [...] the division, and aware. [facility] 07-16-2024 Note HNO ID: [id number] Author: TRACEY NANCE RN Service: Care Management Author Type: Registered Nurse Type: Care Mgt Progress Note Filed: 07/16/2024 16:49 Note Text: CARE MANAGEMENT PROGRESS NOTE SERVICE DATE: 07/16/2024 SERVICE TIME: 1:04 PM LOS: 9 days Post-Acute Discharge Planning Patient Goal(s): Increase strength [place] of Choice Explained: Discharge Planning Participant(s): Patient/Family Comments: Anticipated # of Days Until Discharge: 0 Transport at Discharge: Needs Prior to Discharge: Needs Prior to Discharge: OT/PT Evaluation Post-Acute Discharge Plan: Discharge to [facility] per [facility]OC. Await updated PT for pre cert initiation. SIGNATURE: Tracey Nance RN PATIENT NAME: Mel Castillo DATE: July 16, 2024 TIME: 1:[address] [facility] 07-16-2024 Note Date of Procedure 07/16/2024. Glass Edger Information Reimbursement Representative: Arin Vital. Start time: 8:56 AM. Stop time: 8:56 AM. 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 Glass Edger Information STEWART Donovan 07/16/2024 9:34 AM . 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 documented in this encounter [facility] 07-16-2024 Note HNO ID: [id number] Author: SAVANA LOPEZ MD Service: ? 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 [facility] 07-16-2024 Note HNO ID: [id number] Author: BRIANA PRITCHARD MD Service: General Internal [...] - This AM seen by ophthalmology at [facility] Optho appointment Objective MEDICATIONS: Current Facility-Administered Medications [...] Drain Duration External Collection Device 07/15/24 1000 [facility] <1 day Intake/Output 07/12/24 0700 [...] (more content not included)... [facility] 07-15-2024 Note HNO ID: [id number] Author: OTILIO GERBER MD Service: Ophthalmology Author [...] to HTN (SBP 199/99 at presentation to [facility]) that caused angle closure and elevated IOP [...] BRING PATIENT DOWN FOR FOLLOW UP AT [facility] - Post-op precautions reviewed, including: Signs and symptoms of endophthalmitis, and retinal detachment warning signs reviewed, including increasing floaters, flashes or changes in peripheral vision. [facility] 07-15-2024 Note HNO ID: [id number] Author: BRIANA PRITCHARD MD Service: General Internal Medicine Author Type: Physician Type: Progress Notes Filed: 07/15/2024 12:59 Note Text: Internal Medicine - Dae Chaudhry Progress Note Patient Name: Mel Castillo [address] Admission Date: 07/07/2024 Length of Stay: [...] (more content not included)... [facility] 07-14-2024 Note HNO ID: [id number] Author: BRIANA PRITCHARD MD Service: Hospital Medicine Author Type: Physician Type: Progress Notes Filed: 07/14/2024 13:37 Note Text: Internal Medicine - Dae Chaudhry Progress Note Patient Name: Mel Castillo [address] Admission Date: 07/07/2024 Length of Stay: [...] (more content not included)... 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 07-13-2024 Note HNO ID: [id number] Author: MARCIA MARTINS APRN.LAND MANAGER Service: ? Author Type: Nurse Manpower Development Specialist Type: Anesthesia Procedure Notes Filed: 07/13/2024 12:43 Note Text: ANESTHESIOLOGY PROCEDURE NOTE Airway General Information Procedure Start Time/Medication Administration: 07/13/2024 12:28 PM Procedure End Time: 07/13/2024 12:42 PM Patient location during procedure: OR Timeout Performed Pre-procedure: timeout performed Consent Obtained: Yes Patient identity confirmed: arm band, care velvet steamer and patient Staffing LAND MANAGER: Marcia Martins APRN.LAND MANAGER Performed by: LAND MANAGER Indications and Patient Condition Indications for airway management: anesthesia Preoxygenated: yes anesthesia circuit Method: sleep Difficult Mask: No Final Airway Details Final airway type: supraglottic airway Number of attempts at approach: 1 Final Supraglottic Airway: Supraglottic airway: ambu auraonce. Size 4 Seal Adequate: yes Failed airway: no Unrecognized esophageal intubation: no Airway not difficult Comments atraumatic SIGNATURE: Marcia Martins, DIRECTOR OF GLOBAL TALENT.LAND MANAGER PATIENT NAME: Mel Castillo DATE: July 13, 2024 TIME: 12:42 PM CSN: [id number] [facility] 07-13-2024 Note HNO ID: [id number] Author: FELICIA LEVY MD Service: General Internal [...] of vision now s/p laser iridotomy at [facility] then trasnferred to [facility] for further management. S/p multiple peripheral [...] Patient Name: Mel Castillo Patient Location: [address] [facility]/H060-31 Admission Date: 07/07/2024 Length of Stay: 6 [...] (more content not included)... [facility] 07-12-2024 Note HNO ID: [id number] Author: TRACEY NANCE RN Service: Care Management Author Type: Registered Nurse Type: Care Mgt Progress Note Filed: 07/12/2024 16:50 Note Text: CARE MANAGEMENT PROGRESS NOTE SERVICE DATE: 07/12/2024 SERVICE TIME: 4:46 PM LOS: 5 days Post-Acute Discharge Planning Patient Goal(s): Increase strength [place] of Choice Explained: Discharge Planning Participant(s): Patient/Family Comments: Anticipated # of Days Until Discharge: 0 Transport at Discharge: Needs Prior to Discharge: Post-Acute Discharge Plan: Await SNF choices spoke w/ daughter in law Fidel Garcia sent to [facility] yesterday. This CM reached out to [facility] via email for choices. Daughter In law cannot recall selections. covering CM will need to reach out to [facility] tomorrow for selections that were emailed to her. SIGNATURE: Tracey Nance RN PATIENT NAME: Mel Castillo DATE: July 12, 2024 TIME: 4:[address] [facility] 07-12-2024 Note Date of Procedure 07/12/2024. Glass Edger Information CHAR Veliz ROUB 07/12/2024 12:15 PM . Notes B scan OD: From wheelchair. Patient vomiting during this visit. Best images possible. 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 Possible increased height maximum now at 12:00 measuring 10.0 mm. 2) Not able to assess for mobility today due to patient discomfort 3) SRF over choroidals in three quadrants. [facility] 07-12-2024 Note Date of Procedure 07/12/2024. Glass Edger Information Reimbursement Representative: JACQUELINE. Imaging Comments: Limited exam due to patient discomfort-best images possible . Notes Worsening choroid detachments [facility] 07-12-2024 Note HNO ID: [id number] Author: THOMAS SCHMITZ MD Service: ? Author [...] choroidals (not yet appositional) - Evaluated at [facility] 07/12/24 with intense nausea and multiple episodes [...] to HTN (SBP 199/99 at presentation to [facility]) that caused angle closure and elevated IOP [...] discussed with Dr. Phelan [facility] 07-12-2024 History of Present illness Narrative [...] choroidals (not yet appositional) - Evaluated at [facility] 07/12/24 with intense nausea and multiple episodes [...] to HTN (SBP 199/99 at presentation to [facility]) that caused angle closure and elevated IOP [...] with Dr. Phelan documented in this encounter [facility] 07-12-2024 Note HNO ID: [id number] Author: FELICIA LEVY MD Service: General Internal [...] of vision now s/p laser iridotomy at [facility] then trasnferred to [facility] for further management. S/p multiple peripheral [...] possible dispo to SNF or home with [facility] (challenging given multiple daily eye drops and medications) - Rest per excellent note by resident Signature: Felicia Levy MD Date: 07/12/2024 Time: 1:27 PM Internal Medicine - Dae Chaudhry Progress Note Patient Name: Mel Castillo Patient Location: [facility] 031/H060-31 Admission Date: 07/07/2024 Length [...] (more content not included)... [facility] 07-11-2024 Note HNO ID: [id number] Author: FELICIA LEVY MD Service: General Internal [...] of vision now s/p laser iridotomy at [facility] then trasnferred to [facility] for further management. S/p multiple peripheral [...] Note Patient Name: Mel Castillo [address] Admission Date: 07/07/2024 Length of Stay: [...] (more content not included)... [facility] 07-10-2024 Note HNO ID: [id number] Author: FELICIA LEVY MD Service: General Internal [...] of vision now s/p laser iridotomy at [facility] then trasnferred to [facility] for further management. S/p multiple peripheral [...] Patient Name: Mel Castillo Patient Location: [address] [facility]/H060-31 Admission Date: 07/07/2024 Length of Stay: 3 [...] (more content not included)... [facility] 07-09-2024 Note HNO ID: [id number] Author: TRACEY NANCE RN Service: Care Management [...] Current Advance Directive: Health Care Power of Automotive Design Layout Drafter In Chart: Yes Up To Date and Valid: Yes Current Living Arrangements and Support Lives with: Alone Type of Residence: Mobile Home Support: Friends/neighbors, Family members How do you manage to accomplish the following: Independent: Ambulation;Bathe/Shower;Dress;Angélica g to the bathroom Needs Assistance: Meals/Meal Prep;Medication Management;Transportation to appointments/community Current Services/Equipment Discharge Planning Patient Goal(s): Increase strength [place] of Choice Explained: [place] of Choice Given: Yes Level of Care Discussed: Home Care Are you interested in bedside delivery of your medications? Yes Discharge Planning Participant(s): Caregiver;Family Patient/Family Comments: Fidel Hdez (Other) Caregiver Assessment: Caregiver is ready, willing and able to meet the patient's needs as recommended by the inter-professional team: (friends) Transport at Discharge: Transportation Arrangements: Car Destination: [id number] [place] [address] [address] [place] [phone] Needs Prior to Discharge: Post-Acute Discharge Plan: Anticipate DC home with C 24-48 hours. HC referrals placed . Await OT evaluation. Patient lives alone in trailer , There are 4 steps to entrance, Using rolator prior to admission. Patient independent with ADL and assist with iADL prior to admission.Patient receives meals on wheels. Family transport to appointments and can provide nursing care partner assist. Family transport home. This CM spoke [...] 2024 TIME: 4:[address] [facility] 07-09-2024 Note HNO ID: [id number] Author: NADIA VIDAL ? Service: Pharmacy Author Type: Handle Sander Operator Type: Plan of Care Filed: 07/09/2024 12:31 Note Text: Insurance investigation completed Patient has active prescription insurance: Yes - Patient's insurance is in-network with [facility] Insurance loaded into [place]: Yes Test claim was completed to verify insurance is active: Successful Any questions, please reach out to your medication access control specialist. [facility] 07-09-2024 Note HNO ID: [id number] Author: GISSELL POPE RPh Service: Pharmacy Author Type: Pharmacist Type: Plan of Care Filed: 07/09/2024 12:32 Note Text: PHARMACY MEDICATION REVIEW Patient Name: Mel Castillo : 1940 The following medications were updated within the MANAGER ACQUISITION medication list: Medications ADDED to MANAGER ACQUISITION medication list Furosemide 40 mg prn swelling Medications CHANGED on MANAGER ACQUISITION medication list Lisinopril 10 mg changed to 40 mg Increased from 5 mg daily to 40 mg daily on last hospital discharge Medications REMOVED from MANAGER ACQUISITION medication list Albuterol HFA PRN Lidocaine 4% [...] Completed by: Gissell Pope RPh All MANAGER ACQUISITION medications addressed by LIP Patient interested in Bedside Delivery Services or using OP Pharmacy at discharge? Yes. Discharge Pharmacy Updated Preferred outpatient pharmacy: [id number] [place] [address] [address] [facility] [phone] General Pharmacy [facility] Allergies: Percocet [Oxycodone* [...] Inject 0.7 mL subcutaneously every 12 hours. hbfutfnwods-vvhwacuau-tnwsquuk (TRELEGY ELLIPTA) 100-62.5-25 mcg inhalation powder 07/06/2024 [...] (MYDRIACYL) None recorded 1 Gissell Pope [facility] 07/09/[address] [facility] 07-09-2024 Note HNO ID: [id number] Author: OTILIO GERBER MD Service: ? Author [...] Follow up with Dr. Lopez Monday 07/16 [facility] eye clinic -Can continue anticoagulation [...] NLP vision Otilio Gerber MD Ophthalmology Resident [facility] Patient seen and discussed with Dr. Phelan [facility] 07-09-2024 History of Present illness Narrative [...] to HTN (SBP 199/99 at presentation to [facility]) that caused angle closure and elevated IOP [...] Follow up with Dr. Lopez Monday 07/16 [facility] eye clinic -Can continue anticoagulation [...] NLP vision Otilio Gerber MD Ophthalmology Resident [facility] Patient seen and discussed with Dr. Phelan documented in this encounter [facility] 07-09-2024 Note HNO ID: [id number] Author: FELICIA LEVY MD Service: General Internal [...] of vision now s/p laser iridotomy at [facility] then trasnferred to [facility] for further management. S/p multiple peripheral [...] (more content not included)... [facility] 07-08-2024 Note HNO ID: [id number] Author: FELICIA LEVY MD Service: Hospital Medicine [...] of vision now s/p laser iridotomy at [facility] then trasnferred to [facility] for further management. Plan: - Ophthalmology [...] Note Patient Name: Mel Castillo [id number] Admission Date: 07/07/2024 Length of Stay: [...] (more content not included)... [facility] 07-07-2024 Note HNO ID: [id number] Author: JARED GILMORE MD Service: ? Author [...] MD Vitreoretinal Surgery Fellow [facility] 07-07-2024 History of Present illness Narrative [...] with Dr. Gilmore documented in this encounter [facility] 07-07-2024 Note [facility] 07-07-2024 Hospital course Narrative Discharge Summary [...] Ellipta 100-62.5-25 MCG/ACT aerosol powder Generic drug: Tpzflhjxmou-Phiponwns-Zkevjj STOP taking these medications albuterol 108 (90 [...] ophthalmic solution Recommended Follow-up: Tre Lombardi MD [address] [place] [address] [address] [facility] [id number] Call in 2 month(s) Need follow up in December 2024 for aneurysm surveillence Complexity of Follow up: [] Moderate Complexity: follow up within 7-14 calendar days (02293) [x] Severe Complexity: follow up within 7 calendar days (65674) - after DC from [facility] Follow up [...] Red Henderson DO Division of Hospitalist Medicine [facility]3] 07/07/2024, 11:08 AM documented in this encounter [facility] 07-07-2024 Nurse Note Report called to [facility]. [facility] 07-07-2024 Nurse Note Report called to [facility]. This RN called Protective Services to try and locate pts lost glasses from 07/05/2024. Glasses that match the description are in lost and found. Will attempt to see if glasses are a match. documented in this encounter [facility] 07-07-2024 Note Formatting of this n ote [...] Length of Stay (Days): 0 GMLOS: 2.3 [facility] 07-07-2024 Note Formatting of this n ote might be different from the original. Care Management Progress Note DC plan - Transfer to [facility]. Received message from RN who reports pt [facility] and dc orders to go today and is requesting transportation be set up AIDAN. Transportation set up through roundtrip via cot with [employer] for 10:30am. RN, pt and pt's dtr Fidel notified of dc plan and transportation time. No add'l needs for dc noted or identified at this time. Length of Stay (Days): 0 GMLOS: 2.3 [facility] 07-07-2024 Miscellaneous Notes Care Management Progress Note DC plan - [facility] to [facility]. Received message from RN who reports pt [facility] and dc orders to go today and is requesting transportation be set up AIDAN. Transportation set up through roundtrip via cot with [employer] for 10:30am. RN, pt and pt's dtr [...] is working on this . With staff. [facility] she is agreeable to it if goes home . [employer] Mel Pop : 1940 Primary Care Physician: Jared Evans MD The patient and/or family/surrogate voluntarily agreed to participate in ACP services. Patient s cognitive capacity: intact Code Status: [ ] [FULL CODE - Continue all advanced life support: CPR,intubation,invasive procedures] [ X ] [DNR-CCA - DO NOT do CPR, intubation] [_] [DNR-CEMENT LOADER - Comfort care only] [_] DNR form [...] and/or family/surrogate. Silvio Peres MD Acute care [facility] 07/05/2024, 1:18 PM documented in this encounter [facility] 07-07-2024 History of Present illness Narrative Nutrition rescreen completed. Chart reviewed. Patient to be monitored and followed by the diet plastic eye technician. Images from the original note were not included. PHYSICAL THERAPY [facility] Initial Evaluation Name/MRN: Mel Pop ([id number]) Evaluation Date: 07/06/2024 Date of : 1940 Admission Date: 07/05/2024 4:21 AM Age: 83 y.o. Room/Bed: W3-324/W3-324 A Discharge Recommendation: [facility] Facility Equipment Needed: [...] kidney disease COPD (chronic obstructive pulmonary disease) ([facility]) DVT (deep venous thrombosis) ([facility]) Essential hypertension 03/07/2020 GERD (gastroesophageal reflux disease) Hiatal hernia IBS (irritable bowel syndrome) Pure hypercholesterolemia 03/07/2020 PVD (peripheral vascular disease) ([facility]) Stroke ([facility]) Past Surgical History: Past Surgical History: [...] of deep vessels of proximal lower extremity ([facility]) 04/14/2024 Peripheral arterial disease ([facility]) 04/03/2024 Immunodeficiency due to conditions classified elsewhere ([facility]) 07/27/2023 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 ([facility]) 07/27/2023 Bilateral pneumonia 06/16/2022 COVID-19 06/16/2022 Hypothyroidism 06/16/2022 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/16/2022 Cellulitis 05/18/2022 Nicotine use disorder 05/18/2022 Acute venous embolism and thrombosis of deep vessels of proximal end of right lower extremity ([facility]) 04/19/2024 Atrial fibrillation, unspecified type ([facility]) 04/19/2024 Irritable bowel syndrome with diarrhea 03/07/2020 Microscopic hematuria 03/07/2020 Left retinal detachment 03/07/2020 Hyperglycemia 03/07/2020 Osteopenia of left femoral neck 03/07/2020 terminal makeup operator current use of anticoagulant therapy 03/07/2020 Seasonal allergies 03/07/2020 Chronic renal insufficiency, stage III (moderate) ([facility]) 03/07/2020 Major depression, single episode, in complete remission ([facility]) 03/07/2020 Gastroesophageal reflux disease without esophagitis 03/07/2020 Essential hypertension 03/07/2020 Pure hypercholesterolemia 03/07/2020 Overweight 03/07/2020 Psoriasis 03/07/2020 History of cerebrovascular accident 03/07/2020 Atrial fibrillation ([facility]) 03/07/2020 Chronic obstructive pulmonary disease ([facility]) 03/07/2020 Finger osteomyelitis, right ([facility]) 03/06/2020 Medical Precautions: No active isolations [...] support system of friends and family Active Medical Reception Specialist: Prior Level of Function Prior Level of [...] Care supervision is transferred to a [facility] Therapy Services Physical Therapist. Goals and/or [...] kidney disease COPD (chronic obstructive pulmonary disease) ([facility]) DVT (deep venous thrombosis) ([facility]) Essential hypertension 03/07/2020 GERD (gastroesophageal reflux [...] Henderson DO Division of Hospitalist Medicine [facility] documented in this encounter [facility] 07-06-2024 Nurse Note This RN called Protective Services to try and locate pts lost glasses from 07/05/2024. Glasses that match the description are in lost and found. Will attempt to see if glasses are a match. [facility] 07-06-2024 Telephone encounter Note TELEPHONE ENCOUNTER 07/06/2024 Patient with recent stroke and admitted to [facility] where she was noted to have elevated IOP with retinal detachment of the right eye by consult labor economist. She has a history of RD in [...] optos OU Ryan Elizondo MD Ophthalmology Resident [facility] Work Phone: 07-06-2024 Miscellaneous Notes TELEPHONE ENCOUNTER 07/06/2024 Patient with recent stroke and admitted to [facility] where she was noted to have elevated IOP with retinal detachment of the right eye by consult labor economist. She has a history of RD in [...] MD Ophthalmology Resident documented in this encounter [facility] 07-06-2024 Note Formatting of this [...] is working on this . With staff. [facility] she is agreeable to it if goes home . [facility] 07-06-2024 Note Formatting of this n ote [...] is working on this . With staff. [facility] she is agreeable to it if goes home . [facility] 07-06-2024 Consult note Formatting of th is [...] a retinal subspecialist at either [facility] or [facility] for repair of retinal detachment right eye (OD). Continue ophthalmic pressure lowering ophthalmic meds right eye (OD) until seen by retinal subspecialist. [facility] Phone: 07-06-2024 Consult note Formatting of th [...] a retinal subspecialist at either [facility] or [facility] for repair of retinal detachment [...] Associated Order(s): Inpatient consult to Endovascular Neurology--[facility] Inpatient consult to Endovascular Neurology--[facility] Consult performed by: Helga Naik APRN - BRANCH OPERATIONS SPECIALIST Consult ordered by: Wm Nunes DO [...] kidney disease, COPD (chronic obstructive pulmonary disease) ([facility]), DVT (deep venous thrombosis) ([facility]), Essential hypertension (03/07/2020), GERD (gastroesophageal reflux disease), Hiatal hernia, IBS (irritable bowel syndrome), Pure hypercholesterolemia (03/07/2020), PVD (peripheral vascular disease) ([facility]), and Stroke ([facility]). She has no past medical history of Cancer ([facility]) ([facility]), Cerebral artery occlusion with cerebral infarction ([facility]), CHF (congestive heart failure) ([facility]), Diabetes mellitus ([facility]), Hemodialysis patient ([facility]) ([facility]), blood clots, or MDRO (multiple drug [...] Name: Mel Pop Patient : 1940 Acct: [id number] Date of Admission: 07/05/2024 Room/Bed: 60/60 PCP: [...] Historical Provider, ergocalciferol (Vitamin D2) 1.25 MG (49136 UT) capsule Take 1.25 mg by mouth [...] 5 MG tablet Take as directed by [facility] Anticoagulation Clinic (90 tablets = 90 day [...] , Rfl: ergocalciferol (Vitamin D2) 1.25 MG (64545 UT) capsule, Take 1.25 mg by mouth [...] 5 MG tablet, Take as directed by [facility] Anticoagulation Clinic (90 tablets = 90 day [...] motor function: 0=Normal Total: 2 Pre-admission Modified Keene Score: 1 __ 0 No symptoms at [...] 4:46 AM EST. Report Dictated on Workstation: [employer] Electronically Signed By: Cirilo Ray DR Electronically [...] 4:46 AM EST. Report Dictated on Workstation: [employer] Electronically Signed By: Cirilo Ray DR Electronically [...] this patient's care. documented in this encounter [facility] 07-05-2024 Consult note Formatting of th is [...] drops are started. Will continue to follow. [facility] 07-05-[address] Carlson at bedside. [facility] 07-05-[address] Carlson at [...] to Maritza FRAGA Emergency Department Encounter Location: [facility] EMERGENCY DEPT Patient: Mel Pop [...] 423 ms QTC Interval 418 ms P [place] 0 degrees QRS [place] 37 degrees T Wave [place] 29 degrees [place] Interval 0 ms Troponin, High Sensitivity, Serial, [...] IV. I discussed with Dr. Peres from [facility] hospitalist service who accepted the admit. Medications [...] Given 07/05/24 0517) I am not the assistant teacher primary of record. Dr. Nunes is the assistant teacher primary of record. Final Impression 1. Vision loss of right eye 2. Acute intractable headache, unspecified headache type DISPOSITION Observation 07/05/2024 01:21:52 PM (Please note that portions of this note may have been completed with a voice recognition program. Efforts were made to edit the dictations but occasionally words are mis-transcribed.) Jhonatan Hernandze MD [facility] [employer] Jhonatan Hernandez MD 07/05/24 1322 documented in this encounter [facility] 07-05-2024 Note Formatting of this n ote [...] - DO NOT do CPR, intubation] [_] [DNR-CEMENT LOADER - Comfort care only] [_] DNR form [was/was not] signed Summary of discussion: The patient health care POA/ surrogate is the following: Fidel STAPLETON ([facility]) I answered all the patient/family [...] with patient and/or family/surrogate. Silvio Peres MD [facility] 07/05/2024, 1:18 PM [facility] 07-05-2024 Note Formatting of this n ote [...] - DO NOT do CPR, intubation] [_] [DNR-CEMENT LOADER - Comfort care only] [_] DNR form [was/was not] signed Summary of discussion: The patient health care POA/ surrogate is the following: DAYA Fidel Castillo ([facility]) I answered all the patient/family [...] (formerly [facility])[3] 07/05/2024, 1:18 PM [facility] 07-05-2024 History and physical note Attending History and Physical Admit Date: 07/05/2024 PCP: Jared Evans MD CHIEF COMPLAINT: Loss of vision right eye, headache/eye pain, nausea, eye swelling Reason for Admission: 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 History Obtained From: patient and patient's [id number] HISTORY OF PRESENT ILLNESS: Mel is a [...] kidney disease COPD (chronic obstructive pulmonary disease) ([facility]) DVT (deep venous thrombosis) ([facility]) Essential hypertension 03/07/2020 GERD (gastroesophageal reflux disease) Hiatal hernia IBS (irritable bowel syndrome) Pure hypercholesterolemia 03/07/2020 PVD (peripheral vascular disease) ([facility]) Stroke ([facility]) Past Surgical History: Past Surgical History: [...] Resource Strain: Low Risk (06/20/2024) Re[facility] from [facility] Overall Financial Resource Strain (CARDIA) Difficulty of Paying Living Expenses: Not very hard Food Insecurity: No Food Insecurity (06/20/2024) Received from [facility] Hunger Vital Sign Worried About Running Out of Food in the Last Year: Never true Ran Out of Food in the Last Year: Never true Transportation Needs: No Transportation Needs (07/02/2024) Received from [facility] Transportation Source Has lack of transportation [...] No Stress Concern Present (06/19/2024) Received from [facility] of Occupational Health - Occupational Stress Questionnaire Feeling of Stress : Not at all Social Connections: Moderately Isolated (06/20/2024) Received from [facility] [place] Social Connection and Isolation Panel [NHANES] Frequency of Communication with Friends and Family: More than three times a week Frequency of Social Gatherings with Friends and Family: Once a week Attends Jainism Services: More than 4 times per year Active Member of Clubs or Organizations: No Attends Club or Organization Meetings: Never Marital Status: Intimate Partner Violence: Not At Risk (06/19/2024) Received from [facility] Domestic Abuse Assessment Do you feel safe in your relationships at home?: Yes Physical Abuse: Denies [facility] Domestic Abuse - Type of Abuse: Not on file [facility] Domestic Abuse - Time Frame: Not on file [facility] Domestic Abuse - Signs and Symptoms: Not on file Verbal Abuse: Denies [facility] Domestic Abuse - Reported To: Not on file Housing Stability: Low Risk (06/20/2024) Received from [facility] Housing Stability Vital Sign Unable to Pay [...] the evening. ergocalciferol (Vitamin D2) 1.25 MG (64669 UT) capsule Take 1.25 mg by mouth [...] 5 MG tablet Take as directed by [facility] Anticoagulation Clinic (90 tablets = 90 day [...] 07/05/2024 [facility] 1940 [id number] Exam Date/Time: 07/05/2024 11:45 Procedure: MR BRAIN [...] 07/05/2024 Patient Name: MEL POP : 1940 [facility]#: [id number] Exam Date/Time: 07/05/2024 04:36 Procedure: CT HEAD [...] 07/05/2024 [facility]: [facility] 1940 [id number] Exam Date/Time: 07/05/2024 04:36 Procedure: CT HEAD [...] 07/05/2024 Patient Name: MEL POP : 1940 [facility]#: [id number] Exam Date/Time: 07/05/2024 04:36 Procedure: CT PERFUSION [...] meter Result Date: 07/05/2024 Performed by: [facility], [address] [place] [address] CLIA ID: [id number] Assessment / Plan Discussed management with the [...] MD Division of Hospitalist Medicine Acute care [facility] Dictated using [employer] Version 2.4 Proof read however unrecognized voice recognition errors may have occurred [employer] Work Phone: 07-05-2024 Note [employer] [facility] 07-05-2024 History and physical note Attending History and Physical Admit Date: 07/05/2024 PCP: Jared Evans MD CHIEF COMPLAINT: Loss of vision right eye, headache/eye pain, nausea, eye swelling Reason for Admission: 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 History Obtained From: patient and patient's [id number] HISTORY OF PRESENT ILLNESS: Mel is a [...] Resource Strain: Low Risk (06/20/2024) Received from [facility] Overall Financial Resource Strain (CARDIA) Difficulty of Paying Living Expenses: Not very hard Food Insecurity: No Food Insecurity (06/20/2024) Received from [facility] Hunger Vital Sign Worried About Running Out of Food in the Last Year: Never true Ran Out of Food in the Last Year: Never true Transportation Needs: No Transportation Needs (07/02/2024) Received from [facility] Transportation Source Has lack of transportation [...] No Stress Concern Present (06/19/2024) Received from [facility] - Occupational Stress Questionnaire Feeling of Stress : Not at all Social Connections: Moderately Isolated (06/20/2024) Received from [facility] Social Connection and Isolation Panel [NHANES] Frequency of Communication with Friends and Family: More than three times a week Frequency of Social Gatherings with Friends and Family: Once a week Attends Jainism Services: More than 4 times per year Active Member of Clubs or Organizations: No Attends Club or Organization Meetings: Never Marital Status: Intimate Partner Violence: Not At Risk (06/19/2024) Received from [facility] Domestic Abuse Assessment Do you feel safe in your relationships at home?: Yes Physical Abuse: Denies [facility] Domestic Abuse - Type of Abuse: Not on file [facility] Domestic Abuse - Time Frame: Not on file [facility] Domestic Abuse - Signs and Symptoms: Not on file Verbal Abuse: Denies [facility] Domestic Abuse - Reported To: Not on file Housing Stability: Low Risk (06/20/2024) Received from [facility] Housing Stability Vital Sign Unable to [...] the evening. ergocalciferol (Vitamin D2) 1.25 MG (58263 UT) capsule Take 1.25 mg by mouth [...] 5 MG tablet Take as directed by [facility] Anticoagulation Clinic (90 tablets = 90 day [...] 07/05/2024 [facility]EL [facility] 1940 [id number] Exam Date/Time: 07/05/2024 11:45 Procedure: MR BRAIN [...] 07/05/2024 Patient Name: MEL POP : 1940 [facility]#: [id number] Exam Date/Time: 07/05/2024 04:36 Procedure: CT HEAD [...] 07/05/2024 Patient [facility]: [facility]EL POP [facility] 1940 [id number] Exam Date/Time: 07/05/2024 04:36 Procedure: CT PERFUSION [...] glucose meter Result Date: 07/05/2024 Performed by: [facility], [address] [place] [address] CLIA ID: [id number] Assessment / Plan Discussed management with the [...] MD Division of Hospitalist Medicine Acute care [facility] Dictated using [employer] Version 2.4 Proof read however unrecognized voice recognition errors may have occurred documented in this encounter [facility] 07-05-2024 Emergency department Note Provider notified of patient request for pain meds. [facility] 07-05-2024 Consult note Associated Order (s): IP [...] drops to be discontinued after 4 days. [facility] 07-05-2024 Consult note Associated Order (s): Inpatient consult to Endovascular Neurology--[facility] Inpatient consult to Endovascular Neurology--[facility] Consult performed by: Helga Naik APRN - BRANCH OPERATIONS SPECIALIST Consult ordered by: Wm Nunes DO [...] pulmonary disease) (HCC), DVT (deep venous thrombosis) ([facility]), Essential hypertension (03/07/2020), GERD (gastroesophageal reflux disease), Hiatal hernia, IBS (irritable bowel syndrome), Pure hypercholesterolemia (03/07/2020), PVD (peripheral vascular disease) ([facility]), and Stroke ([facility]). She has no past medical history of Cancer ([facility]) ([facility]), Cerebral artery occlusion with cerebral infarction ([facility]), CHF (congestive heart failure) ([facility]), Diabetes mellitus ([facility]), Hemodialysis patient ([facility]) ([facility]), blood clots, or MDRO (multiple drug [...] . Personal review of: Imaging,Labs,Old Records},.},. [facility] [employer] Work Phone: 07-05-[address] Carlson at bedside [facility] 07-05-2024 Emergency department Note Patient is returning back to room 32 at this time with Jose, Medic. [facility] 07-05-2024 Emergency department Note Pt currently at eye clinic with RADHA Hinkle for emergent eye laser procedure. [facility] 07-05-2024 Note Pt currently at eye clinic with RADHA Hinkle for emergent eye laser procedure. [facility] 07-05-2024 Emergency department Note Pt emergently going to eye clinic. Pt being transported in wheelchair with trauma float RADHA Hinkle and Maritza FRAGA Pt being transported on zoll monitor and acls kit. [facility] 07-05-2024 Emergency department Note Ophthalmology at bedside [facility] 07-05-2024 Emergency department Note Report to Maritza FRAGA [facility] 07-05-2024 Consult note Associated Order (s): IP CONSULT TO STROKE TEAM STROKE TEAM NOTE Patient Name: Mel Pop Patient : 1940 Acct: [id number] Date of Admission: 07/05/2024 Room/Bed: 60/60 PCP: [...] Pure hypercholesterolemia 03/07/2020 PVD (peripheral vascular disease) ([facility]) Stroke ([facility]) Past Surgical History: Past Surgical History: [...] Historical Provider, ergocalciferol (Vitamin D2) 1.25 MG (11265 UT) capsule Take 1.25 mg by mouth [...] 5 MG tablet Take as directed by [facility] Anticoagulation Clinic (90 tablets = 90 day [...] , Rfl: ergocalciferol (Vitamin D2) 1.25 MG (49781 UT) capsule, Take 1.25 mg by mouth [...] 5 MG tablet, Take as directed by [facility] Anticoagulation Clinic (90 tablets = 90 day [...] 4:46 AM EST. Report Dictated on Workstation: [employer] Electronically Signed By: Cirilo Ray DR Electronically [...] to be involved in this patient's care. [facility] Phone: 07-05-2024 Physician Emergency department Note Emergency Department Encounter Location: [facility] EMERGENCY DEPT Patient: Mel Pop [...] 423 ms QTC Interval 418 ms P [place] 0 degrees QRS [place] 37 degrees T Wave [place] 29 degrees [place] Interval 0 ms Troponin, High Sensitivity, Serial, [...] IV. I discussed with Dr. Peres from [facility] hospitalist service who accepted the admit. Medications sodium chloride 0.9% (NS) flush 5-40 mL ( IntraVENous Not Given 07/05/24 1300) sodium chloride 0.9% (NS) flush 5-40 mL (has no administration in time range) sodium chloride 0.9 % infusion (has no administration in time range) sodium chloride 0.9 % infusion (50 mL/hr IntraVENous Rate/Dose Verify 07/05/24 8899) labetalol (Normodyne,Trandate) injection 10 mg (has no [...] Given 07/05/24 0517) I am not the assistant teacher primary of record. Dr. Nunes is the assistant teacher primary of record. Final Impression 1. Vision loss of right eye 2. Acute intractable headache, unspecified headache type DISPOSITION Observation 07/05/2024 01:21:52 PM (Please note that portions of this note may have been completed with a voice recognition program. Efforts were made to edit the dictations but occasionally words are mis-transcribed.) Jhonatan Hernandez MD [employer] Jhonatan Hernandez MD 07/05/24 1322 [facility] 06-19-2024 Note HNO ID: [id number] Author: JOSE GONZALEZ tim Service: Pharmacy Author [...] neuroendovascular for ICA aneurysm Jose Gonzalez [facility] Pager: Nora/Hailey chat 06/19/2024 1:31 PM Medication [...] ELLIPTA 100-62.5-25 mcg inhalation powder Generic drug: obttjusgpnb-mytzxusmn-mbuwytxk VITAMIN C 500 mg tablet Generic drug: [...] zinc oxide 20 % ointment [facility] 06-19-2024 Note HNO ID: [id number] Author: ROSLYN ROSE RN Service: Care Management Author Type: Registered Nurse Type: Care Mgt Progress Note Filed: 06/19/2024 13:11 Note Text: CARE MANAGEMENT DISCHARGE NOTE SERVICE DATE: June 19, 2024 SERVICE TIME: 1:10 PM Admission Date: 06/10/2024 LOS: 8 days Discharge Arrangement Discharge Arrangement: Acute Rehabilitation Facility Services Arranged Provider Name: Taylor [facility] Caregiver Assessment Caregiver is ready, willing and able to meet the patient's needs as recommended by the inter-professional team: Yes Name of Caregiver: Taylor Muir Transportation Arrangements Transportation Arrangements: Ambulance Transportation Agency and Phone #:: [facility] ( [facility] ) [phone] / [phone] Date of Trip: 06/19/24 Time of Trip: 1800 Type of Service: BLS Non-emergency Wellness Health Coach [facility]: [facility] Health System Destination: [facility] Financial Care Management Responsibility: None Handoff Communication: Handoff to: Specialty Plant Wrapper Specialty Plant Wrapper Name/Phone: Taylor Muir Additional Information: Patient has insurance precert and is discharging to [facility] today via [facility] cot at 6:00 PM. Spoke with patient at bedside and son José Miguel via phone who are aware and agreeable. Transfer envelope with chart. Care team aware via Epic chat. Discharge Information Row Name ED to Hosp-Admission (Current) from 06/10/2024 in [place] [address] NEURO/CARD Rehab Facility Agency [facility] SIGNATURE: Roslyn Rose RN PATIENT NAME: Mel Castillo DATE: June 19, 2024 TIME: 1:10 PM CONTACT #: [phone] [facility] 06-19-2024 Note HNO ID: [id number] Author: DON EDWARDS DO Service: Hospital Medicine Author Type: Physician Type: Progress Notes Filed: 06/19/2024 12:53 Note Text: DEPARTMENT OF HOSPITAL MEDICINE PROGRESS NOTE SERVICE DATE: 06/19/2024 SERVICE TIME: 10:10 AM Hospital Medicine/Primary Attending: Don Edwards DO NIGHT AND WEEKEND COVERAGE: [place] COVERAGE: From 7am - 7pm, please call [phone] After 7pm, please call cross cover pager #[phone] Subjective INTERVAL HPI: Pt seen and examined. [...] 22 Gauge -- days Peripheral 06/12/24 0427 [facility] Short Right Forearm 20 Gauge [...] now event with subtherapeutic coumadin. [place]. Will need to follow up with neurology [...] -- 06/11/24 0730 vte current anticoag therapy ([place], [place]) 06/11/24 0730 activity - mobilize patient ([place]) VTE Prophylaxis: VTE prophylaxis appropriate Disposition: Acute Rehab Plan of care discussed with: Provider, RN, Patient SIGNATURE: Don Edwards DO PATIENT NAME: Mel Castillo DATE: June 19, 2024 TIME: 10:10 AM etx [id number] [facility] 06-18-2024 Note HNO ID: [id number] Author: ANABEL VEGA ? Service: Care Management Author Type: ? Type: Care Mgt Progress Note Filed: 06/18/2024 17:18 Note Text: [facility] PRECERT NOTE [employer] MEDICARE PPO approved Inpatient Rehab Facility for [facility]. Precert approved for dates: - 06/26/2024. For any additional questions regarding approvals, transport or care management needs, please contact the CM assigned to this patient in the Treatment Team. SIGNATURE: Anabel Khalil Page DATE: June 18, 2024 TIME: 5:17 PM [facility] 06-18-2024 Note HNO ID: [id number] Author: MARK MINOR DO Service: Hospital Medicine Author Type: Physician Type: Progress Notes Filed: 06/18/2024 16:17 Note Text: DEPARTMENT OF HOSPITAL MEDICINE PROGRESS NOTE SERVICE DATE: 06/18/2024 SERVICE TIME: 4:06 PM Hospital Medicine/Primary Attending: Mark Minor DO NIGHT AND WEEKEND COVERAGE: After 7pm please page [phone] SUBJECTIVE: Patient seen examined at bedside. No [...] now event with subtherapeutic coumadin. [place]. Will need to follow up with neurology [...] atrial (more content not included)... [facility] 06-18-2024 Note HNO ID: [id number] Author: ROSLYN ROSE RN Service: Care Management Author Type: Registered Nurse Type: Care Mgt Progress Note Filed: 06/18/2024 12:32 Note Text: CARE MANAGEMENT PROGRESS NOTE SERVICE DATE: 06/18/2024 SERVICE TIME: 9:01 AM LOS: 7 days Chart reviewed. [facility] is [facility]. Will need precert and cot transport. CM to follow for transitional care planning. ADDENDUM at 10:20 AM- Spoke with patient at bedside and provided update on pending precert. Received message from [facility] that insurance is requesting updated PT/OT evals and notified therapy. SIGNATURE: Roslyn Rose RN PATIENT NAME: Mel Castillo DATE: June 18, 2024 TIME: 9:01 AM PAGER/CONTACT #: [phone] [facility] 06-17-2024 Note HNO ID: [id number] Author: DON EDWARDS DO Service: Hospital Medicine Author Type: Physician Type: Progress Notes Filed: 06/17/2024 13:52 Note Text: DEPARTMENT OF HOSPITAL MEDICINE PROGRESS NOTE SERVICE DATE: 06/17/2024 SERVICE TIME: 11:15 AM Hospital Medicine/Primary Attending: Don Edwards DO NIGHT AND WEEKEND COVERAGE: [place] COVERAGE: From 7am - 7pm, please call [phone] After 7pm, please call cross cover pager #[phone] Subjective INTERVAL HPI: Pt seen and examined. [...] 22 Gauge -- days Peripheral 06/12/24 042 [facility] Short Right Forearm 20 Gauge [...] eliquis. She was seen by therapy and jail facility was recommended. 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 [place]. Will need to follow up with neurology [...] -- 06/11/24 0730 vte current [place]ag therapy [place]) 06/11/24 0730 activity - mobilize patient ([place]) VTE Prophylaxis: VTE prophylaxis appropriate Disposition: Acute Rehab Plan of care discussed with: Provider, RN, Patient SIGNATURE: Don Edwards DO PATIENT NAME: Mel Castillo DATE: June 17, 2024 TIME: 11:15 AM etx [id number] [facility] 06-16-2024 Note HNO ID: [id number] Author: DON EDWARDS DO Service: Hospital Medicine Author Type: Physician Type: Progress Notes Filed: 06/16/2024 13:06 Note Text: DEPARTMENT OF HOSPITAL MEDICINE PROGRESS NOTE SERVICE DATE: 06/16/2024 SERVICE TIME: 11:00 AM Hospital Medicine/Primary Attending: Don Edwards DO NIGHT AND WEEKEND COVERAGE: [place] COVERAGE: From 7am - 7pm, please call [phone] After 7pm, please call cross cover pager #[phone] Subjective INTERVAL HPI: Pt seen and examined. [...] 22 Gauge -- days Peripheral 06/12/24 0427 [facility] Short Right Forearm 20 Gauge 4 days Drain Duration Indwelling Urinary Catheter 06/11/24 1535 [facility] Ceballos 16 Fr 4 days Reviewed lines and needs to be continued: REASONS: Difficulty in obtaining/maintaining access DATA: Diagnostic tests reviewed for today's visit: Most recent labs and imaging results. 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 [place]. Will need to follow up with neurology [...] -- 06/11/24 0730 vte [place]ag [place] 06/11/24 0730 activity - mobilize [place] ([place]) VTE Prophylaxis: VTE prophylaxis appropriate Disposition: Acute Rehab Plan of care discussed with: Provider, RN, Patient SIGNATURE: Don Edwards DO PATIENT NAME: Mel Castillo DATE: June 16, 2024 TIME: 11:00 AM etx [id number] [facility] 06-15-2024 Note HNO ID: [id number] Author: ERA TELLES MD Service: Hospital Medicine [...] on oxygen Plan for acute rehab [place] [facility] able to accept. Await precert Plan of care discussed with: Provider, RN, Patient. SIGNATURE: Era Telles MD PATIENT NAME: Mel Castillo DATE: June 15, 2024 TIME: 2:40 PM PAGER: [facility] 06-15-2024 Note HNO ID: [id number] Author: ARIANA MERCER .BRANCH OPERATIONS SPECIALIST Service: Urology Author Type: Nurse Practitioner Type: Plan of Care Filed: 06/15/2024 12:16 Note Text: Urology Plan of Care Note RN reached out asking about a void trial today. Notes pt has bloody urine. Pt seen at bedside. Pt eating lunch. Vanessa urine in tubing at this time. Will place PRN irrigation orders if urine is bloody again. Page urology resident information technology security analyst if urine is grade 4 or higher. Plan was to void trial prior to DC. Pt currently states she is unsure when she is going to rehab. CM note from this morning states waiting precert to [facility]. Since it is already after 12pm,, will maintain ceballos catheter. Can void trial tomorrow morning if plan is to DC 06/16. Page urology resident at 7am on day of DC for void trial orders. - D/W team. RN sent a secure chat message as she was in with another patient when I was on the unit. Ariana Mercer APRN 06/15/2024 12:11 PM Page information technology security analyst resident with questions [facility] 06-15-2024 Note HNO ID: [id number] Author: ROSLYN ROSE RN Service: Care Management Author Type: Registered Nurse Type: Care Mgt Progress Note Filed: 06/15/2024 09:38 Note Text: CARE MANAGEMENT PROGRESS NOTE SERVICE DATE: 06/15/2024 SERVICE TIME: 9:36 AM LOS: 4 days Chart reviewed. [facility] is [facility]. Will need precert and cot transport. Will place transfer envelope with chart that has signed portable DNR form attached. CM to follow for transitional care planning. SIGNATURE: Roslyn Rose RN PATIENT NAME: Mel Castillo DATE: June 15, 2024 TIME: 9:36 AM PAGER/CONTACT #: [phone] [facility] 06-14-2024 Note HNO ID: [id number] Author: JENNIFER FRENANDEZ, RADHA Service: Nursing Author Type: Registered Nurse Type: Nursing Progress Note Filed: 06/14/2024 17:35 Note Text: 1610: paged urology for voiding trial awaiting response [facility] 06-14-2024 Note HNO ID: [id number] Author: ERA TELLES MD Service: Hospital Medicine [...] on oxygen Plan for acute rehab [place] [facility] able to accept. Await precert Plan of care discussed with: Provider, RN, Patient. SIGNATURE: Era Telles MD PATIENT NAME: Mel Castillo DATE: June 14, 2024 TIME: 2:47 PM PAGER: [facility] 06-13-2024 Note HNO ID: [id number] Author: EDIE CASTAÑEDA MD Service: Hospital Medicine Author Type: Physician Type: Progress Notes Filed: 06/13/2024 14:18 Note Text: DEPARTMENT OF HOSPITAL MEDICINE Hospital Medicine/Primary Attending: Edie Castañeda MD NIGHT AND WEEKEND COVERAGE: After 7pm please page [phone] MEDICATIONS: Current Facility-Administered Medications Medication Dose Route [...] interatrial septum. Patient sees Dr. Padilla at [facility]. Cardiology saw patient in hospital, recommended Lovenox at discharge for lifelong. 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 Continue heparin drip. Will transition to therapeutic lovenox tonight (discussed patel and affordability with patient, lin (more content not included)... [facility] 06-13-2024 Note HNO ID: [id number] Author: CARLYLE GUZMÁN RN Service: Care Management [...] and CHERYL Stokes about accepting facilities. [facility]. Precert started for [facility]. Cot transport is on standby. Will to continue to follow for transitional care planning. SIGNATURE: Carlyle Guzmán RN PATIENT NAME: Mel Castillo DATE: June 13, 2024 TIME: 12:54 PM PAGER/CONTACT #: [phone] [facility] 06-12-2024 Note HNO ID: [id number] Author: SHARONA MCDERMOTT MD Service: Hospital Medicine Author Type: Physician Type: Progress Notes Filed: 06/12/2024 17:08 Note Text: DEPARTMENT OF HOSPITAL MEDICINE Hospital Medicine/Primary Attending: Sharona Mcdermott MD NIGHT AND WEEKEND COVERAGE: After 7pm please page [phone] Saw patient at bedside with friend visiting. [...] interatrial septum. Patient sees Dr. Padilla at [facility]. Cardiology saw patient in hospital, recommended [...] Not (more content not included)... [facility] 06-12-2024 Note HNO ID: [id number] Author: DEBORAH PEACE RN Service: Care Management Author Type: Registered Nurse Type: Care Mgt Progress Note Filed: 06/12/2024 16:10 Note Text: CARE MANAGEMENT PROGRESS NOTE SERVICE DATE: 06/12/2024 SERVICE TIME: 4:09 PM LOS: 1 day [place] of Choice Given: Yes Level of Care Discussed: Inpatient Rehab Facility Financial Disclosure Provided: Yes Provider List: Rehab Facility Provider list within the patient's requested geographic area shared with the patient/family: Yes within: 15 miles of zip code: [address] Quality and resource use metrics shared with the patient that are relevant to the patient's goals of care and treatment preferences:: Yes Spoke with pt about pt/ot recs for acute rehab, pt agreeable to list , [facility] but pt would like to discuss acute rehab with her ; referral sent to [facility] SIGNATURE: Deborah Peace RN PATIENT NAME: Mel Castillo DATE: June 12, 2024 TIME: 4:09 PM PAGER/CONTACT #: [phone] [facility] 06-12-2024 Note HNO ID: [id number] Author: ANDREEA KING LSW Service: Care Management Author Type: Decorating Kiln Operator Type: Care Mgt Progress Note Filed: 06/12/2024 [...] 12, 2024 TIME: 3:20 PM PAGER/CONTACT #: [phone] [facility] 06-11-2024 Note HNO ID: [id number] Author: CARLYLE GUZMÁN RN Service: Care Management [...] Home Advance Directives Current Advance Directive: None Professional Skater Attempted to Assist with AD Completion: Yes [...] General wellness, Be able to go home [place] of Choice Explained: [place] of Choice Given: No Reason Not Given: [...] who said she was mostly IND MANAGER ACQUISITION and does not endorse any skilled needs at this time. +PCP, +DME, +RX coverage, family to provide DC transportation. Will to continue to follow for transitional care planning. SIGNATURE: Carlyle Guzmán RN PATIENT NAME: Mel Castillo DATE: June 11, 2024 TIME: 3:41 PM CONTACT #: [phone] [facility] 06-11-2024 Note Spoke with Melany Evans's office and she stated that patient is scheduled in their office tomorrow, 06/12 for INR check. I faxed her out last progress note. I will inactivate patient from our service. [facility] 05-21-2024 History of Present illness Narrative INR reported on by Christin with [facility]. Christin can be reached at [phone] with questions. Images from the original note were not included. [facility] Anticoagulation Management Service ([facility]) Anticoagulation Clinic [address] [place] [address], [address], [place] [address] Subjective TYSON Mel (1940) had INR completed [...] PharmD, BCACP, CACP documented in this encounter [facility] 05-09-2024 History of Present illness Narrative Graciela from [facility] called in results. Images from the original note were not included. [facility] Anticoagulation Management Service ([facility]) Anticoagulation Clinic [address] [place] [address], [address], [place] [address] Subjective HPI Mel (1940) had INR completed [...] positive findings Mel was instructed to notify [facility] of any unusual bruising or active/uncontrollable bleeding, medication changes within 24 hours, missed doses, dietary changes, illnesses or hospitalizations, and upcoming surgeries. Patient given verbal instructions. Patient expressed understanding utilizing the teach back method. Time spent 10 Minutes JOSE ANGEL Perez, PharmD, BCPS documented in this encounter [facility] 05-01-2024 History of Present illness Narrative [facility]- [phone] Images from the original note were not included. [facility] Anticoagulation Management Service ([facility]) Anticoagulation Clinic [address] [place] [address], [address], [place] [address] Subjective TYSON Choi (1940) had INR completed [...] 5 mg daily Next INR Check: 05/08/2024 [facility] Patient educated on the following: dietary/lifestyle considerations and Vitamin K content and consistency Patient care coordination completed: N/A Patient given verbal instructions. Patient expressed understanding utilizing the teach back method. Time spent 10 Minutes Won Tipton RN staffed with Nidia TolbertD, BCACP, CACP documented in this encounter [facility] 04-27-2024 Telephone encounter Note Pt requested refill on warfarin 5mg. Sent to [facility]. Receipt confirmed by pharmacy. [facility] 04-27-2024 Miscellaneous Notes Pt requested refill on warfarin 5mg. Sent to [facility]. Receipt confirmed by pharmacy. documented in this encounter [facility] 04-25-2024 History of Present illness Narrative Vascular [...] any significant pain. She is following with [facility] clinic for Warfarin, switched from Eliquis. She [...] tablet (5mg) on 04/15 Follow up with [facility] pharmacy for further dosing 04/13/24 Jordin Roldan [...] min Stress: No Stress Concern Present (04/04/2024) Citizen Of [place] [facility] [employer] - Occupational Stress Questionnaire Feeling of Stress : Not at all Social Connections: Moderately Isolated (04/04/2024) Social Connection and Isolation Panel [NHANES] Frequency of Communication with Friends and Family: More than three times a week Frequency of Social Gatherings with Friends and Family: More than three times a week Attends Jainism Services: 1 to 4 times per year [...] thrombectomy -Recovering well -Recommend continuing warfarin per [facility] clinic -Continue to elevate as needed. -Discussed [...] (around 07/26/2024). . documented in this encounter [facility] 04-19-2024 History of Present illness Narrative Graciela with [facility] reports INR on vm Graciela can be reached at [phone] with any questions. Images from the original note were not included. [facility] Anticoagulation Management Service ([facility]) Anticoagulation Clinic [address], [address], [place] [address] Megan Choi (1940) had INR completed by [...] Perez, PharmD, BCPS documented in this encounter [facility] 04-14-2024 History of Present illness Narrative Placed new order for POCT INR, [facility] had not received. documented in this encounter [facility] 04-14-2024 Miscellaneous Notes Addended by: PATTY DUGGAN on: 04/16/2024 07:01 AM Modules accepted: Orders Addended by: HARMONY GREY on: 04/16/2024 08:41 AM Modules accepted: Orders documented in this encounter [facility] 04-14-2024 Note Addended by: PATTY DUGGAN on: 04/16/2024 07:01 AM Modules accepted: Orders [facility] 04-14-2024 Note Addended by: HARMONY GREY on: 04/16/2024 08:41 AM Modules accepted: Orders [facility] 04-14-2024 Note Addended by: PATTY DUGGAN on: 04/16/2024 07:01 AM Modules accepted: Orders [facility] 04-14-2024 Note Addended by: HARMONY GREY on: 04/16/2024 08:41 AM Modules accepted: Orders [facility] 04-14-2024 Note Addended by: PATTY DUGGAN on: 04/16/2024 07:01 AM Modules accepted: [facility] 04-14-2024 Note Addended by: HARMONY GREY on: 04/16/2024 08:41 AM Modules accepted: [facility] 04-13-2024 Nurse Note AVS explained. Discharged patient on stable condition. [facility] 04-13-2024 Nurse Note AVS explained. Discharged patient on stable condition. Instructed patient on warfarin dosing, she will take 7.5mg tomorrow, and 5mg Tuesday, and then we will check INR with home care on Tuesday as instructed. NO changes to heparin infusion at this time. documented in this encounter [facility] 04-13-2024 Nurse Note Instructed patient on warfarin dosing, she will take 7.5mg tomorrow, and 5mg Tuesday, and then we will check INR with home care on Tuesday as instructed. [facility] 04-13-2024 Note Formatting of this n ote might be different from the original. Phone conversation with the patient at their request from the [facility] regarding her established home care. Patient was wondering what services were being provided and what expectations to have for HHC. I explained her current ordered services and she stated she understood. Patient then asked if she could have meals delivered. 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 Secure chat sent to KEESHA Hazard regarding this. [facility] 04-13-2024 Note Formatting of this n ote might be different from the original. Phone conversation with the patient at their request from the [facility] regarding her established home care. Patient was wondering what services were being provided and what expectations to have for HHC. I explained her current ordered services and she stated she understood. Patient then asked if she could have meals delivered. 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 Secure chat sent to KEESHA Hazard regarding this. [facility] 04-13-2024 Miscellaneous Notes Phone conversation with the patient at their request from the [facility] regarding her established home care. Patient was wondering what services were being provided and what expectations to have for HHC. I explained her current ordered services and she stated she understood. Patient then asked if she could have meals delivered. 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 Secure chat sent to [facility] regarding this. Images from the original note were not included. Care Management Progress Note INR 2.3 today. Hep drip continued, plan to DC to [facility] today. Plan to have PT seen patient today per her request. Patient is active with [facility]. Await treatment plan and clinical progress. manager budget will continue to follow for transitional care [...] Await treatment plan and clinical progress. manager budget will continue to follow for transitional care needs for discharge planning. Discharge Milestones and Delays Expected date/time: 04/13/2024 Expected discharge disposition: Home Health Services Discharge Milestones Place discharge order Complete med reconciliation Case mgmt discharge readiness Clinical Stability Diagnostic Workup Plant Anatomist Recommendations Facility Choice Selection Imaging Results PT [...] Await treatment plan and clinical progress. manager budget will continue to follow for transitional care [...] Await treatment plan and clinical progress. manager budget will continue to follow for transitional care needs for discharge planning. Discharge Milestones and Delays Expected date/time: 04/11/2024 Expected discharge disposition: Home or Self Care Discharge Milestones Place discharge order Complete med reconciliation Case mgmt discharge readiness Clinical Stability Diagnostic Workup Plant Anatomist Recommendations Facility Choice Selection Imaging Results Patient [...] vasc consult" 04/06/2024 Bernie Cutler APRN - BRANCH OPERATIONS SPECIALIST 04/04/2024 4:04 AM 04/06/2024 Bernie Cutler APRN - BRANCH OPERATIONS SPECIALIST 04/03/2024 11:17 PM Length of Stay (Days): 7 GMLOS: 4 Images from the original note were not included. Care Management Progress Note Remains on heparin gtt while transitioning to coumadin. Consult Hemology. Pt active with [facility]- will continue services at discharge. Await treatment plan and clinical progress. manager budget will continue to follow for transitional care needs for discharge planning. Discharge Milestones and Delays Expected date/time: 04/10/2024 Expected discharge disposition: Home or Self Care Discharge Milestones Place discharge order Complete med reconciliation Case mgmt discharge readiness Clinical Stability Diagnostic Workup Plant Anatomist Recommendations Facility Choice Selection Imaging Results Patient [...] vasc consult" 04/06/2024 Bernie Cutler APRN - BRANCH OPERATIONS SPECIALIST 04/04/2024 4:04 AM 04/06/2024 Bernie Cutler APRN - BRANCH OPERATIONS SPECIALIST 04/03/2024 11:17 PM Length of Stay [...] while transitioning to coumadin. Pt active with [facility]- will continue services at discharge. Discharge [...] vasc consult" 04/06/2024 Bernie Cutler APRN - BRANCH OPERATIONS SPECIALIST 04/04/2024 4:04 AM 04/06/2024 Bernie Cutler APRN - BRANCH OPERATIONS SPECIALIST 04/03/2024 11:17 PM Length of Stay (Days): 3 GMLOS: 3.1 Patient report called to 4N RN and denies any further questions. Patient resting comfortably and no signs of distress. Per resident patient to lay flat for 2 hours and restart heparin GTT at 1215. Transport notified. SW assisted patient with completion of Health Care Power of Automotive Design Layout Drafter. One copy placed in patient chart, one copy sent to medical records and two copies given to patient. Requested by patient, while at bedside this SW spoke to patient's son via patients phone to explain that HCPOA was being completed by patient. Patients son José Miguel Castillo ([phone]) agreed to be this patients agent on [...] technique was used to place a 5 Angolan sheath. A Tinybeansson wire was able to be advanced in the inferior vena cava without difficulty. The 5 Angolan sheath was then upsized to a 16 Angolan sheath and the penumbra flash suction thrombectomy device was prepared per physician assistant's instructions. The patient was also given 5000 units of heparin for systemic anticoagulation at this time. The Penumbra device was then inserted through the 16 Angolan sheath and a suction thrombectomy was performed [...] device was removed as was the 16 Angolan sheath and an 0 silk suture was [...] Blankenship MD Vascular Surgery Date: 04/06/2024 Location: [facility] OR Name: Mel Pop, : 1940, Diagnosis Pre-op Diagnosis * Right leg DVT (HCC) [I82.401] Post-op Diagnosis * Right leg DVT (HCC) [I82.401] Procedures RIGHT LOWER EXTREMITY VENOUS MECHANICAL THROMBECTOMY 30435 - [place] PRQ TRANSLUMINAL MECHANICAL THROMBECTOMY VEIN Surgeons * Kristyn Blankenship - Primary Procedure Summary Anesthesia: General ASA: III Estimated Blood Loss: 300 mL Drains: * None in log * Staff: County Assessor: Negrita Elizabeth RN; Amira Burton RN Scrub [...] from home alone- indep and active with [facility]- will return. Discharge Milestones and Delays [...] Limits Permission given to speak with patient traveling representative/caregiver as indicated: Confirmation of Payer with [...] and indep. Pt active with [facility]- liaison following for continued services. Pt uses walker/cane at baseline. Pt has insurance, PCP and able to obtain meds. Pt's friends help with transportation. No needs antic at discharge. Virginia Rehman RN Start PACC Note Home Health Referral Educated patient on Home Care and services available. Patient offered choice of available HHC and agreeable to SN/PT services with [facility]. Care Types: [...] is noted as yes - consider a EMPLOYMENT PROGRAMS ANALYST evaluation once the patient returns home. START PATIENT REGISTRATION INFORMATION Order Information Order Signing Physician: Robert Vigil MD Service Ordered RN ?: Yes Service Ordered PT ?: Yes Service Ordered OT ?: No Service Ordered ST ?: No Service Ordered EMPLOYMENT PROGRAMS ANALYST?:No Service Ordered ASBESTOS SHINGLE ROOFER?: No Following Physician: Jared Evans MD Following Physician Overseeing Physician: Jared Evans MD (Required for Residents only) Agreeable to Follow? Yes Date/Time of Call 04/04/24 11:36 AM, Spoke with: Patient is a DEB. Care Coordination Same Day SOC?: No Primary Care Physician: Jared Evans MD Primary Care Physician Primary Care Physician [address] [place] [address] Visit Instructions: N/A Service Discharge Location Type: Home with Home Care Service Facility Name: N/A Service Floor Facility: N/A Service Room No: N/A Demographics Patient Last Name: Jose Alberto Patient First Name: Mel Language/Communication Barrier: none [address] [address] Service City: [facility] ST: [place] Service ZIP: [address] Service Other phone numbers: Telephone Information: Emergency [...] Caregiver Phone Number: na Caregiver Notes: N/A [place] No END PATIENT REGISTRATION INFORMATION Pt [...] intervention. Discharge Date: pending Referral Source-PACC: (Hospital/Unit): [facility] / N4-461/N4-461 B End PACC Note The patient is Moderately Stable - Low risk of patient condition declining or worsening The patient's goals for the shift include safety The clinical goals for the shift include therapeutic aptt Patient is currently active with [facility]. The patients current certification period will on 05/18/24. The patient is currently receiving PT services through the agency. Director Of Employer Services to continue to follow. ADVANCED CARE PLANNING Mel Pop : 1940 Primary Care Physician: Jared Evans MD The patient and/or family/surrogate voluntarily agreed to participate in ACP services. Patient s cognitive capacity: intact Code Status: [ ] [FULL CODE - Continue all advanced life support: CPR,intubation,invasive procedures] [X] [DNR-CCA - DO NOT do CPR, intubation] [_] [DNR-CEMENT LOADER - Comfort care only] [_] DNR form [...] and/or family/surrogate. Pratibha Avelar DO Acute care [facility] 04/04/2024, 5:40 AM The patient is Moderately Stable - Low risk of patient condition declining or worsening The patient's goals for the shift include met The clinical goals for the shift include met Over the shift, the patient did not make progress toward the following goals. Barriers to progression include . Recommendations to address these barriers include . documented in this encounter [facility] 04-13-2024 Note [facility] 04-13-2024 Hospital course Narrative Discharge Summary [...] superficial femoral artery occlusion and transferred to [facility]. She underwent venous thrombectomy with vascular surgery and was initiated on warfarin bridging with heparin. [facility] followed and managed bridging anticoagulation. Pt reported feeling improvement from day to day. Though she was concerned that being stuck in the hospital will debilitate her.Her INR was therapeutic on 04/13. [facility] recommended transition to Warfarin alternating 5mg/7.5mg dosing and close OP follow up for INR check. SIGNIFICANT DIAGNOSTIC STUDIES: BLE Duplex CONSULTANTS: Vascular surgery Pharmacy RECOMMENDED NEXT STEPS: Follow up with [facility] clinic and vascular DISCHARGE MEDICATIONS: Medication List [...] tablet (5mg) on 04/15 Follow up with [facility] pharmacy for further dosing CONTINUE taking these medications albuterol 108 (90 Base) MCG/ACT inhaler ascorbic acid 500 MG tablet Commonly known as: Vitamin C lisinopril 5 MG tablet pantoprazole 40 MG EC tablet Commonly known as: ProtoNix Trelegy Ellipta 100-62.5-25 MCG/ACT aerosol powder Generic drug: Ehgmcnwaqya-Tdlnqgvst-Lcoyto STOP taking these medications Eliquis 5 MG tablet Generic drug: apixaban Where to Get Your Medications These medications were sent to [facility] [address] [place] [id number] Hours: Tuesday to Tuesday 10 am to 6 pm oxyCODONE 5 MG immediate release tablet warfarin 5 MG tablet DIET: Adult diet Regular ACTIVITY: No restriction. COMPLEXITY OF FOLLOW UP: [x] Moderate Complexity: follow up within 7-14 calendar days (65735) [] Severe Complexity: follow up within 7 calendar days (09953) FOLLOW UP TESTING, PENDING RESULTS OR REFERRALS AT TRANSITIONAL CARE VISIT: [] Yes [x] No PENDING STUDIES: none DISPOSITION: Home with Home Health Care FACILITY/HOME CARE AGENCY NAME: [facility] Follow up with Kristyn Blankenship MD [address] [place] [address] [address] [place] [id number] Schedule an appointment as soon as possible for a visit [facility] clinic for INR check next week INSTRUCTIONS [...] 04/13/2024, 2:20 PM documented in this encounter [facility] 04-13-2024 History of Present illness Narrative Images from the original note were not included. PHYSICAL THERAPY [facility] Treatment Note Name/MRN: Mel Pop ([id number]) Date of : 1940 Age: 83 y.o. [...] Distance (ft): 12 Quality of gait: slow ejnni, decreased step length, Ambulation 2 Assistive device(s) [...] Minutes 13 (Gait) Christin Gu PT [facility] Anticoagulation Management Service ([facility]) Inpatient Warfarin Consult HPI: Mel Pop is a 83 y.o. female admitted on 04/03/2024 for Peripheral arterial disease (HCC). Past Medical History: Diagnosis Date Asthma Essential hypertension 03/07/2020 GERD (gastroesophageal reflux disease) Hiatal hernia Pure hypercholesterolemia 03/07/2020 Patient is newly referred to the [facility] clinic for warfarin management. Pt was referred by Anthony Yee APRN - BRANCH OPERATIONS SPECIALIST. Pt is on warfarin for DVT and [...] PharmD [facility] Consult Service is available daily [phone] via [employer] Secure Chat. If no response, please page [phone]. Hospitalist Progress Note 04/13/2024 Subjective: Admit Date: [...] superficial femoral artery occlusion and transferred to [facility]. She underwent venous thrombectomy with [...] person, place, and time. Medications: Scheduled PRN Qkuxviaijvk-Zlhevbmuf-Jlimjs, 1 puff, Inhalation, Daily influenza, 0.5 mL, [...] superficial femoral artery occlusion and transferred to [facility]. She underwent venous thrombectomy with [...] person, place, and time. Medications: Scheduled PRN Qewnrrbfdnm-Nedsxdebz-Wjgxli, 1 puff, Inhalation, Daily influenza, 0.5 mL, [...] Jordin Roldan MD Division of Hospitalist Medicine [facility] Anticoagulation Management Service ([facility]) Inpatient Warfarin Consult HPI: Mel Pop is a 83 y.o. female admitted on 04/03/2024 for Peripheral arterial disease (HCC). Past Medical History: Diagnosis Date Asthma Essential hypertension 03/07/2020 GERD (gastroesophageal reflux disease) Hiatal hernia Pure hypercholesterolemia 03/07/2020 Patient is newly referred to the [facility] clinic for warfarin management. Pt was referred [...] PharmD [facility] Consult Service is available daily [phone] via [employer] Secure Chat. If no response, please page [phone]. Images from the original note were not included. OCCUPATIONAL THERAPY [facility] Initial Evaluation Name/MRN: Mel Pop ([id number]) Evaluation Date: 04/11/2024 Date of : 1940 Admission Date: 04/03/2024 5:47 PM Age: 83 y.o. 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 Cellulitis 05/18/2022 Nicotine use disorder 05/18/2022 Irritable bowel syndrome with diarrhea 03/07/2020 Microscopic hematuria 03/07/2020 Left retinal detachment 03/07/2020 Hyperglycemia 03/07/2020 Osteopenia of left femoral neck 03/07/2020 terminal makeup operator current use of anticoagulant therapy 03/07/2020 Seasonal allergies 03/07/2020 Chronic renal insufficiency, stage III (moderate) ([facility]) 03/07/2020 Major depression, single episode, in complete remission ([facility]) 03/07/2020 Gastroesophageal reflux disease without esophagitis 03/07/2020 Essential hypertension 03/07/2020 Pure hypercholesterolemia 03/07/2020 Overweight 03/07/2020 Psoriasis 03/07/2020 History of cerebrovascular accident 03/07/2020 Atrial fibrillation ([facility]) 03/07/2020 Chronic obstructive pulmonary disease ([facility]) 03/07/2020 Finger osteomyelitis, right ([facility]) 03/06/2020 Medical Precautions: No active isolations [...] Responsibilities: Independent Receives Help From: None Active Medical Reception Specialist: Yes Prior Level of Function ADL Assistance: [...] Care supervision is transferred to a [facility] Therapy Services Occupational Therapist. Goals and/or [...] superficial femoral artery occlusion and transferred to [facility]. She underwent venous thrombectomy with [...] person, place, and time. Medications: Scheduled PRN Qnrcxzmudke-Wrddmmezw-Uqzakk, 1 puff, Inhalation, Daily influenza, 0.5 mL, [...] Jordin Roldan MD Division of Hospitalist Medicine [facility] Images from the original note were not included. PHYSICAL THERAPY [facility] Initial Evaluation Name/MRN: Mel Pop ([id number]) Evaluation Date: 04/11/2024 Date of : 1940 Admission Date: 04/03/2024 5:47 PM Age: 83 y.o. Room[facility]Bed: N4461/[facility] B Discharge Recommendation: Home with Home health [...] Osteopenia of left femoral neck 03/07/2020 senior living current use of anticoagulant therapy 03/07/2020 Seasonal allergies 03/07/2020 Chronic renal insufficiency, stage III (moderate) ([facility]) 03/07/2020 Major depression, single episode, in complete remission ([facility]) 03/07/2020 Gastroesophageal reflux disease without esophagitis 03/07/2020 Essential hypertension 03/07/2020 Pure hypercholesterolemia 03/07/2020 Overweight 03/07/2020 Psoriasis 03/07/2020 History of cerebrovascular accident 03/07/2020 Atrial fibrillation ([facility]) 03/07/2020 Chronic obstructive pulmonary disease ([facility]) 03/07/2020 Finger osteomyelitis, right ([facility]) 03/06/2020 Medical Precautions: No active isolations [...] Care supervision is transferred to a [facility] Therapy Services Physical Therapist. Goals and/or treatment plan was established in collaboration with patient/family/other representatives. [facility] Anticoagulation Management Service ([facility]) Inpatient Warfarin [...] and adjust dose accordingly. 3. Will facilitate [facility] follow-up upon discharge. Patient is agreeable to [facility] follow up. 4. Provided warfarin education. Marybeth Rahman RPh, PharmD [facility] Consult Service is available daily [phone] via [employer]. If no response, please page [phone]. Hospitalist Progress Note 04/10/2024 Subjective: Admit Date: [...] superficial femoral artery occlusion and transferred to [facility]. She underwent venous thrombectomy with [...] Jordin Roldan MD Division of Hospitalist Medicine [facility] Nutrition update completed. Chart reviewed. Patient to be monitored and followed by the diet plastic eye technician. FADI Farrar [facility] Anticoagulation Management Service ([facility]) Inpatient Warfarin [...] Will determine if pt is agreeable to [facility] follow-up. 4. Will provide warfarin education. Marybeth Rahman RPh, PharmD [facility] Consult Service is available daily [phone] via [employer] Secure Chat. If no response, please page [phone]. Hospitalist Progress Note 04/09/2024 Assessment/Plan: Data: (CAT1) [...] Date: 04/03/2024 PCP: Jared Evans MD Room#: N4-301/N4-705 B Brief Hospital course: Patient is an 83-year-old female with history of A-fib on Eliquis, significant tobacco use, HTN, HLD, asthma, hiatal hernia, GERD who presented to [place] 04/03 with right leg pain, numbness, tingling causing difficulty ambulating. 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 Interval History: Mild [...] Robert Vigil MD Division of Hospitalist Medicine [facility] Anticoagulation Management Service ([facility]) Inpatient Warfarin Consult HPI: Mel Pop is a 83 y.o. female admitted on 04/03/2024 for Peripheral arterial disease (HCC). Past Medical History: Diagnosis Date Asthma Essential hypertension 03/07/2020 GERD (gastroesophageal reflux disease) Hiatal hernia Pure hypercholesterolemia 03/07/2020 Patient is newly referred to the [facility] clinic for warfarin management. Pt was referred [...] PharmD [facility] Consult Service is available daily [phone] via [employer]. If no response, please page [phone]. Hospitalist Progress Note 04/08/2024 Assessment/Plan: Data: (CAT1) [...] asthma, hiatal hernia, GERD who presented to [place] 04/03 with right leg pain, numbness, tingling causing difficulty ambulating. 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 Interval History: Pain [...] Robert Vigil MD Division of Hospitalist Medicine [facility] Anticoagulation Management Service ([facility]) Inpatient Warfarin Consult HPI: Mel Pop is a 83 y.o. female admitted on 04/03/2024 for Peripheral arterial disease (HCC). Past Medical History: Diagnosis Date Asthma Essential hypertension 03/07/2020 GERD (gastroesophageal reflux disease) Hiatal hernia Pure hypercholesterolemia 03/07/2020 Patient is newly referred to the [facility] clinic for warfarin management. Pt was referred [...] Will determine if pt is agreeable to [facility] follow-up. 4. Will provide warfarin education. Michelle Lugo RPh, PharmD [facility] Consult Service is available daily [phone] via [employer] Secure Chat. If no response, please page [phone]. Hospitalist Progress Note 04/07/2024 Assessment/Plan: Data: (CAT1) [...] Anticipate DC pending clinical improvement and pain., Plant Anatomist recommendations, Coumadin bridge with heparin Total time [...] asthma, hiatal hernia, GERD who presented to [place] 04/03 with right leg pain, numbness, tingling causing difficulty ambulating. 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 Interval History: Pain [...] Robert Vigil MD Division of Hospitalist Medicine [facility] Anticoagulation Management Service ([facility]) Inpatient Warfarin Consult HPI: Mel Pop is a 83 y.o. female admitted on 04/03/2024 for Peripheral arterial disease (HCC). Past Medical History: Diagnosis Date Asthma Essential hypertension 03/07/2020 GERD (gastroesophageal reflux disease) Hiatal hernia Pure hypercholesterolemia 03/07/2020 Patient is newly referred to the [facility] clinic for warfarin management. Pt was referred [...] PharmD [facility] Consult Service is available daily [phone] via [employer] Secure Chat. If no response, please page [phone]. Department of General Surgery Daily Progress Note [...] George Sarah MD PGY5, General Surgery Pager #[phone] CDI Query Response: Acute thrombus within the [...] Anticipate DC pending clinical improvement and pain., Plant Anatomist recommendations, Coumadin bridge with heparin Total time [...] asthma, hiatal hernia, GERD who presented to [place] 04/03 with right leg pain, numbness, tingling causing difficulty ambulating. 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 Interval History: Has [...] Robert Vigil MD Division of Hospitalist Medicine [facility] Department of General Surgery Daily [...] have been answered to their satisfaction. [facility] Anticoagulation Management Service ([facility]) Inpatient Warfarin Consult HPI: Mel Pop is a 83 y.o. female admitted on 04/03/2024 for Peripheral arterial disease (HCC). Past Medical History: Diagnosis Date Asthma Essential hypertension 03/07/2020 GERD (gastroesophageal reflux disease) Hiatal hernia Pure hypercholesterolemia 03/07/2020 Patient is newly referred to the [facility] clinic for warfarin management. Pt was referred [...] Will determine if pt is agreeable to [facility] follow-up 4. Will provide warfarin education. Marybeth Rahman RPh, PharmD [facility] Consult Service is available daily [phone] via [employer] Secure Chat. If no response, please page [phone]. Hospitalist Progress Note 04/05/2024 Assessment/Plan: Data: (CAT1) [...] Discharge Disposition: Anticipate DC pending clinical improvement, hospice care sales consultant recommendations Total time spent (which [...] asthma, hiatal hernia, GERD who presented to [place] 04/03 with right leg pain, numbness, tingling causing difficulty ambulating. 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 Interval History: Had [...] Robert Vigil MD Division of Hospitalist Medicine [facility] Nutrition rescreen completed. Chart reviewed. Patient to be monitored and followed by the diet plastic eye technician. FADI Harmon [facility] Anticoagulation Management Service ([facility]) Inpatient Warfarin Consult HPI: Mel Pop is a 83 y.o. female admitted on 04/03/2024 for Peripheral arterial disease (HCC). Past Medical History: Diagnosis Date Asthma Essential hypertension 03/07/2020 GERD (gastroesophageal reflux disease) Hiatal hernia Pure hypercholesterolemia 03/07/2020 Patient is newly referred to the [facility] clinic for warfarin management. Pt was referred [...] Will determine if pt is agreeable to [facility] follow-up 4. Will provide warfarin education. Thank you for this consult Patty Duggan RPh, PharmD [facility] Consult Service is available daily [phone] via [employer] Secure Chat. If no response, please page [phone]. Department of General Surgery Daily Progress Note [...] Naik MD General Surgery PGY-4 Pager # [phone] Associated attestation - Kristyn Blankenship MD - [...] at midnight for possible thrombectomy tomorrow. [facility] Anticoagulation Management Service ([facility]) Inpatient Warfarin Consult HPI: Mel Pop is a 83 y.o. female admitted on 04/03/2024 for Peripheral arterial disease (HCC). Past Medical History: Diagnosis Date Asthma Essential hypertension 03/07/2020 GERD (gastroesophageal reflux disease) Hiatal hernia Pure hypercholesterolemia 03/07/2020 Patient is newly referred to the [facility] clinic for warfarin management. Pt was referred [...] Will determine if pt is agreeable to [facility] follow-up 4. Will provide warfarin education. Thank you for this consult Marybeth Rahman RPh, PharmD [facility] Consult Service is available daily [phone] via [employer] Secure Chat. If no response, please page [phone]. Nonbillable encounter. Patient was seen by provider earlier today Patient is an 83-year-old female with history of A-fib on Eliquis, significant tobacco use, HTN, HLD, asthma, hiatal hernia, GERD who presented to [place] 04/03 with right leg pain, numbness, tingling causing difficulty ambulating. 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 Severe bilateral LE [...] Eliquis -Smoking cessation documented in this encounter [facility] 04-13-2024 Note Formatting of this n ote is different from the original. Images from the original note were not included. Care Management Progress Note INR 2.3 today. Hep drip continued, plan to DC to [facility] today. Plan to have PT seen patient today per her request. Patient is active with [facility]. Await treatment plan and clinical progress. manager budget will continue to follow for transitional care [...] [place], vasc consult" 04/06/2024 Bernie Cutler, DIRECTOR OF GLOBAL TALENT - BRANCH OPERATIONS SPECIALIST 04/04/2024 4:04 AM 04/06/2024 Bernie Cutler APRN - BRANCH OPERATIONS SPECIALIST 04/03/2024 11:17 PM Length of Stay (Days): 10 GMLOS: 4 [facility] 04-13-2024 Note Formatting of this n ote is different from the original. Images from the original note were not included. Care Management Progress Note INR 2.3 today. Hep drip continued, plan to DC to [facility] today. Plan to have PT seen patient today per her request. Patient is active with [facility]. Await treatment plan and clinical progress. manager budget will continue to follow for transitional care [...] vasc consult" 04/06/2024 Bernie Cutler APRN - BRANCH OPERATIONS SPECIALIST 04/04/2024 4:04 AM 04/06/2024 Bernie Cutler APRN - BRANCH OPERATIONS SPECIALIST 04/03/2024 11:17 PM Length of Stay (Days): 10 GMLOS: 4 [facility] 04-13[facility]24 Plan of care note The patient [...] plan, medications, and discharge instructions Outcome: Progressing [facility] 04-12-2024 Plan of care note Problem: Pain [...] risk of patient condition declining or worsening [facility] 04-12-2024 Note Formatting of this n ote is different from the original. Images from the original note were not included. Care Management Progress Note Patent currently still on Hep Drip, INR 1.9. Will convert to oral when appropriate. Pt active with [facility]- will continue services at discharge. Await treatment plan and clinical progress. manager budget will continue to follow for transitional care needs for discharge planning. Discharge Milestones and Delays Expected date/time: 04/13/2024 Expected discharge disposition: Home Health Services Discharge Milestones Place discharge order Complete med reconciliation Case mgmt discharge readiness Clinical Stability Diagnostic Workup Plant Anatomist Recommendations Facility Choice Selection Imaging Results PT [...] Length of Stay (Days): 9 GMLOS: 4 [facility] 04-12-2024 Note Formatting of this n ote is different from the original. Images from the original note were not included. Care Management Progress Note Patent currently still on Hep Drip, INR 1.9. Will convert to oral when appropriate. Pt active with [facility]- will continue services at discharge. Await treatment plan and clinical progress. manager budget will continue to follow for transitional care needs for discharge planning. Discharge Milestones and Delays Expected date/time: 04/13/2024 Expected discharge disposition: Home Health Services Discharge Milestones Place discharge order Complete med reconciliation Case mgmt discharge readiness Clinical Stability Diagnostic Workup Plant Anatomist Recommendations Facility Choice Selection Imaging Results PT [...] Length of Stay (Days): 9 GMLOS: 4 [facility] 04-12-2024 Plan of care note The patient [...] medications, and discharge instructions Outcome: Progressing T [facility] 04-11-2024 Note Formatting of this n ote is different from the original. Images from the original note were not included. Care Management Progress Note Patent currently still on Hep Drip, INR 1.9. Will convert to oral when appropriate. Pt active with [facility]- will continue services at discharge. Await treatment plan and clinical progress. manager budget will continue to follow for transitional care [...] vasc consult" 04/06/2024 Bernie Cutler APRN - BRANCH OPERATIONS SPECIALIST 04/04/2024 4:04 AM 04/06/2024 Bernie Cutler APRN - BRANCH OPERATIONS SPECIALIST 04/03/2024 11:17 PM Length of Stay (Days): 8 GMLOS: 4 [facility] 04-11-2024 Note Formatting of this n ote is different from the original. Images from the original note were not included. Care Management Progress Note Patent currently still on Hep Drip, INR 1.9. Will convert to oral when appropriate. Pt active with [facility]- will continue services at discharge. Await treatment plan and clinical progress. manager budget will continue to follow for transitional care [...] vasc consult" 04/06/2024 Bernie Cutler APRN - BRANCH OPERATIONS SPECIALIST 04/04/2024 4:04 AM 04/06/2024 Bernie Cutler APRN - BRANCH OPERATIONS SPECIALIST 04/03/2024 11:17 PM Length of Stay (Days): 8 GMLOS: 4 [facility] 04-11-2024 Plan of care note Problem: Pain [...] risk of patient condition declining or worsening [facility] 04-11-2024 Plan of care note The patient [...] or baseline comfort level Outcome: Progressing T [facility] 04-10-2024 Plan of care note Problem: Pain [...] risk of patient condition declining or worsening [facility] 04-10-2024 Note Formatting of this n ote is different from the original. Images from the original note were not included. Care Management Progress Note Patient currently still on Heparin Drip, INR 1.6 today.Will convert to oral when appropriate. Pt active with [facility]- will continue services at discharge. Await treatment plan and clinical progress. manager budget will continue to follow for transitional care needs for discharge planning. Discharge Milestones and Delays Expected date/time: 04/11/2024 Expected discharge disposition: Home or Self Care Discharge Milestones Place discharge order Complete med reconciliation Case mgmt discharge readiness Clinical Stability Diagnostic Workup Plant Anatomist Recommendations Facility Choice Selection Imaging Results Patient [...] vasc consult" 04/06/2024 Bernie Cutler APRN - BRANCH OPERATIONS SPECIALIST 04/04/2024 4:04 AM 04/06/2024 Bernie Cutler APRN - BRANCH OPERATIONS SPECIALIST 04/03/2024 11:17 PM Length of Stay (Days): 7 GMLOS: 4 [facility] 04-10-2024 Note Formatting of this n ote is different from the original. Images from the original note were not included. Care Management Progress Note Patient currently still on Heparin Drip, INR 1.6 today.Will convert to oral when appropriate. Pt active with [facility]- will continue services at discharge. Await treatment plan and clinical progress. manager budget will continue to follow for transitional care needs for discharge planning. Discharge Milestones and Delays Expected date/time: 04/11/2024 Expected discharge disposition: Home or Self Care Discharge Milestones Place discharge order Complete med reconciliation Case mgmt discharge readiness Clinical Stability Diagnostic Workup Plant Anatomist Recommendations Facility Choice Selection Imaging Results Patient [...] Length of Stay (Days): 7 GMLOS: 4 [facility] 04-09-2024 Note Formatting of this n ote is different from the original. Images from the original note were not included. Care Management Progress Note Remains on heparin gtt while transitioning to coumadin. Consult Hemology. Pt active with [facility]- will continue services at discharge. Await treatment plan and clinical progress. manager budget will continue to follow for transitional care needs for discharge planning. Discharge Milestones and Delays Expected date/time: 04/10/2024 Expected discharge disposition: Home or Self Care Discharge Milestones Place discharge order Complete med reconciliation Case mgmt discharge readiness Clinical Stability Diagnostic Workup Plant Anatomist Recommendations Facility Choice Selection Imaging Results Patient [...] Length of Stay (Days): 6 GMLOS: 3.1 [facility] 04-09-2024 Note Formatting of this n ote is different from the original. Images from the original note were not included. Care Management Progress Note Remains on heparin gtt while transitioning to coumadin. Consult Hemology. Pt active with [facility]- will continue services at discharge. Await treatment plan and clinical progress. manager budget will continue to follow for transitional care needs for discharge planning. Discharge Milestones and Delays Expected date/time: 04/10/2024 Expected discharge disposition: Home or Self Care Discharge Milestones Place discharge order Complete med reconciliation Case mgmt discharge readiness Clinical Stability Diagnostic Workup Plant Anatomist Recommendations Facility Choice Selection Imaging Results Patient [...] Length of Stay (Days): 6 GMLOS: 3.1 [facility] 04-08-2024 Plan of care note Progressing [facility] 04-07-2024 Plan of care note The patient [...] or baseline comfort level Outcome: Progressing . [facility] 04-07-2024 Hospital Discharge instructions Lolita Sarah MD [...] Rahman RPh - 04/13/2024 1:07 PM EDT [facility] will monitor your warfarin after you go home. [facility] Phone number: [phone]. Home care nurse will check your INR Monday 04/16 and [facility] will contact you with warfarin dosing instructions. [...] Hyperglycemia Osteopenia of left femoral neck terminal makeup operator current use of anticoagulant therapy Seasonal [...] 8 oz) Mental Status: {HECTOR Patient Mental Status:52578} IV Access: {HECTOR IV Access:64201} Nursing Mobility/ADLs: Walking {MAHESH ADL:::"Independent"} Transfer {MAHESH ADL:87358::"Independent"} Bathing {MAHESH ADL:::"Independent"} Dressing {MAHESH ADL:::"Independent"} Toileting {MAHESH ADL:::"Independent"} Feeding {MAHESH ADL:::"Independent"} Personnel Worker {MAHESH ADL:::"Independent"} Med Delivery {yes/no:07644} Wound Care Documentation and Therapy: Elimination: Continence: Bowel: {yes/no:03293} Bladder: {yes/no:06034} Urinary Catheter: {HECTOR Urinary Catheter:24605} Colostomy/Ileostomy/Ileal Conduit: {YES / NO:} Date of Last BM: Intake/Output Summary (Last 24 hours) at 04/04/2024 1135 Last data filed at 04/03/20242056 Gross per 24 hour Intake 500 ml Output -- Net 500 ml I/O last 3 completed shifts: In: 500 (6.9 mL/kg) [IV Piggyback:500] Out: - (0 mL/kg) Weight: 72.3 kg Safety Concerns: {HECTOR Safety Concerns:35950} Impairments/Disabilities: {HECTOR Impairments/Disabilities:21220} Nutrition Therapy: Current Nutrition Therapy: {HECTOR Diet List:72829} Routes of Feeding: {routes of feedin} Liquids: {liquid consistency:27357} Daily Fluid Restriction: {daily fluid restriction:16409} Last Modified Barium Swallow with Video (Video Swallowing Test): {done not done:98792} Treatments at the Time of Hospital Discharge: Respiratory Treatments: Oxygen Therapy: {Therapy; copd oxygen:37588} Ventilator: {HECTOR Ventilator:81014} Rehab Therapies: {GEN THERAPY DISCIPLINE SCAL:2051267} Weight Bearing Status/Restrictions: {POD WEIGHT BEARIN} Other Medical Equipment (for information only, NOT a DME order): {Assistive Devices DME:92143} Other Treatments: Patient's personal belongings (please select all that are sent with patient): {HECTOR Patient Belongings:75947} RN SIGNATURE: {E-signature:40512} CASE MANAGEMENT/SOCIAL WORK SECTION Inpatient Status Date: Discharging to Facility/ Agency Name: [facility] Address: [address] [place] [address] Dialysis Facility (if applicable) Name: Address: Dialysis Schedule: Phone: Fax: Clin Application Specialist/Decorating Kiln Operator signature: {E-signature:31969} PHYSICIAN SECTION Name: Mel Pop Prognosis: {Rehab Prognosis:36425} Condition at Discharge: {Patient Condition:64951} Rehab Potential (if transferring to Rehab): {Rehab Prognosis:92658} Recommended Labs or Other Treatments After Discharge: The individual is being admitted to a nursing facility directly from an [facility] or a unit of a [facility] that is not operated by or licensed by [facility] under section 5119.14 or 5160-3-15.1 5 The individual requires the level of services provided by a nursing facility for the condition for which he or she was treated in the hospital and, Physician Certification: I certify the above information and transfer of Mel Pop is necessary for the continuing treatment of the diagnosis listed and that she requires {HECTOR Level of Care:70817} for {greater less than:35768} 30 days. Update Admission H&P: {HECTOR Changes in H&P:68823} PHYSICIAN SIGNATURE: {E-signature:79838} documented in this encounter [facility] 04-07-2024 Nurse Note NO changes to heparin infusion at this time. [facility] 04-06-2024 Note Formatting of this n ote is different from the original. Images from the original note were not included. Care Management Progress Note Pt s/p thrombectomy this am with vascular. Remains on heparin gtt while transitioning to coumadin. [facility] will continue services at discharge. Discharge [...] vasc consult" 04/06/2024 Bernie Cutler APRN - BRANCH OPERATIONS SPECIALIST 04/04/2024 4:04 AM 04/06/2024 Bernie Cutler APRN - BRANCH OPERATIONS SPECIALIST 04/03/2024 11:17 PM Length of Stay (Days): 3 GMLOS: 3.1 [facility] 04-06-2024 Note Formatting of this n ote is different from the original. Images from the original note were not included. Care Management Progress Note Pt s/p thrombectomy this am with vascular. Remains on heparin gtt while transitioning to coumadin. [facility] will continue services at discharge. Discharge [...] vasc consult" 04/06/2024 Bernie Cutler APRN - BRANCH OPERATIONS SPECIALIST 04/04/2024 4:04 AM 04/06/2024 Bernie Cutler APRN - BRANCH OPERATIONS SPECIALIST 04/03/2024 11:17 PM Length of Stay (Days): 3 GMLOS: 3.1 [facility] 04-06-2024 Note Formatting of this n ote might be different from the original. Patient report called to 4N RN and denies any further questions. Patient resting comfortably and no signs of distress. Per resident patient to lay flat for 2 hours and restart heparin GTT at 1215. Transport notified. [facility] 04-06-2024 Note Formatting of this n ote might be different from the original. Patient report called to 4N RN and denies any further questions. Patient resting comfortably and no signs of distress. Per resident patient to lay flat for 2 hours and restart heparin GTT at 1215. Transport notified. [facility] 04-06-2024 Note Formatting of this n ote might be different from the original. SW assisted patient with completion of Health Care Power of Automotive Design Layout Drafter. One copy placed in patient chart, one copy sent to medical records and two copies given to patient. Requested by patient, while at bedside this SW spoke to patient's son via patients phone to explain that HCPOA was being completed by patient. Patients son José Miguel Castillo ([phone]) agreed to be this patients agent on the HCPOA and confirmed understanding. [employer] [facility] 04-06-2024 Note Formatting of this n ote might be different from the original. SW assisted patient with completion of Health Care Power of Automotive Design Layout Drafter. One copy placed in patient chart, one copy sent to medical records and two copies given to patient. Requested by patient, while at bedside this SW spoke to patient's son via patients phone to explain that HCPOA was being completed by patient. Patients son José Miguel Castillo ([phone]) agreed to be this patients agent on the HCPOA and confirmed understanding. INGER [facility] 04-06-2024 Note Formatting of this n ote [...] technique was used to place a 5 Angolan sheath. A Tinybeansson wire was able to be advanced in the inferior vena cava without difficulty. The 5 Angolan sheath was then upsized to a 16 Angolan sheath and the penumbra flash suction thrombectomy device was prepared per physician assistant's instructions. The patient was also given 5000 units of heparin for systemic anticoagulation at this time. The Penumbra device was then inserted through the 16 Angolan sheath and a suction thrombectomy was performed [...] device was removed as was the 16 Angolan sheath and an 0 silk suture was [...] the case. Kristyn Blankenship MD Vascular Surgery [facility] 04-06-2024 Note Formatting of this n ote is different from the original. Date: 04/06/2024 Location: [facility] OR Name: Mel Pop DOB: 1940, Diagnosis Pre-op Diagnosis * Right leg DVT (HCC) [I82.401] Post-op Diagnosis * Right leg DVT (HCC) [I82.401] Procedures RIGHT LOWER EXTREMITY VENOUS MECHANICAL THROMBECTOMY 49636 - [place] PRQ TRANSLUMINAL MECHANICAL THROMBECTOMY VEIN Surgeons * Kristyn Blankenship - Primary Procedure Summary Anesthesia: General ASA: III Estimated Blood Loss: 300 mL Drains: * None in log * Staff: County Assessor: Negrita Elizabeth RN; Amira Burton RN Scrub [...] antibiotics are not indicated for this procedure. [facility] 04-06-2024 Note Formatting of this n ote [...] technique was used to place a 5 Angolan sheath. A Bentson wire was able to be advanced in the inferior vena cava without difficulty. The 5 Angolan sheath was then upsized to a 16 Angolan sheath and the penumbra flash suction thrombectomy device was prepared per physician assistant's instructions. The patient was also given 5000 units of heparin for systemic anticoagulation at this time. The Penumbra device was then inserted through the 16 Angolan sheath and a suction thrombectomy was performed [...] device was removed as was the 16 Angolan sheath and an 0 silk suture was [...] case. Kristyn Blankenship MD Vascular Surgery T [facility] 04-06-2024 Note Formatting of this n ote is different from the original. Date: 04/06/2024 Location: [facility] OR Name: Mel Pop, : 1940, Diagnosis Pre-op Diagnosis * Right leg DVT (HCC) [I82.401] Post-op Diagnosis * Right leg DVT (HCC) [I82.401] Procedures RIGHT LOWER EXTREMITY VENOUS MECHANICAL THROMBECTOMY 65791 - [place] PRQ TRANSLUMINAL MECHANICAL THROMBECTOMY VEIN Surgeons * Kristyn Blankenship - Primary Procedure Summary Anesthesia: General ASA: III Estimated Blood Loss: 300 mL Drains: * None in log * Staff: County Assessor: Negrita Elizabeth RN; Amira Burton RN Scrub Person: Lninette Shukla RN Findings: Significant clot burden removed. [...] antibiotics are not indicated for this procedure. INGER [facility] 04-06-2024 Note Formatting of this n ote might be different from the original. Dr Blankenship at bedside. She called family to update them on procedure time change [facility] 04-06-2024 Note Formatting of this n ote might be different from the original. Dr Blankenship at bedside. She called family to update them on procedure time change [facility] 04-06-[address] Blankenship at bedside. She called family to update them on procedure time change [facility] 04-05-2024 Note Formatting of this n ote is different from the original. Images from the original note were not included. Care Management Progress Note Vascular following with noted plan for possible thrombectomy tomorrow. Remains on heparin gtt while transitioning to coumadin per oncology recommendation. Pt from home alone- indep [facility]- will return. Discharge Milestones and Delays Expected [...] Length of Stay (Days): 2 GMLOS: 3.1 [facility] 04-05-2024 Note Formatting of this n ote is different from the original. Images from the original note were not included. Care Management Progress Note Vascular following with noted plan for possible thrombectomy tomorrow. Remains on heparin gtt while transitioning to coumadin per oncology recommendation. Pt from home alone- indep and active with [facility]- will return. Discharge Milestones and Delays [...] vasc consult" 04/06/2024 Bernie Cutler APRN - BRANCH OPERATIONS SPECIALIST 04/04/2024 4:04 AM 04/06/2024 Bernie Cutler APRN - BRANCH OPERATIONS SPECIALIST 04/03/2024 11:17 PM Length of Stay (Days): 2 GMLOS: 3.1 [facility] 04-05-2024 Plan of care note The patient is Moderately Stable - Low risk of patient condition declining or worsening The patient's goals for the shift include met The clinical goals for the shift include met [facility] 04-04-2024 Consult note Formatting of th is note is different from the original. Images from the original note were not included. [facility] Hematology Oncology Inpatient Consultation [facility] Mel Augustpherd : 1940(83 y.o.) Date: April 04, 2024 Attending: Dr. Patel Reason for consult: Primary Care Physician - Jared Evans MD Date of Admission - 04/03/2024 5:47 PM Subjective: Chief Complaint Patient presents with Numbness Leg Swelling HPI Mel Pop is a 83 y.o. woman with a history of severe atherosclerosis, COPD, former smoker, diverticulosis, afib, hypertension, and GERD who presented to [facility] for right lower extremity pain. Reports [...] trifurcation vessels. Vascular surgery recommended transfer to [facility]. PVR and BLE US results [...] called her listed contacts (her friend and [id number] however they do not manage her pill [...] eliquis. I have left a voicemail with [facility] pharmacy in [place] to see if the Eliquis is being [...] min Stress: No Stress Concern Present (04/04/2024) Citizen Of [place] [facility] [employer] - Occupational Stress Questionnaire Feeling of Stress : Not at all Social Connections: Moderately Isolated (04/04/2024) Social Connection and Isolation Panel [NHANES] Frequency of Communication with Friends and Family: More than three times a week Frequency of Social Gatherings with Friends and Family: More than three times a week Attends Jainism Services: 1 to 4 times per year [...] 04/03/2024 [facility] 1940 [id number] Exam Date/Time: 04/03/2024 21:14 Procedure: CTA AORTA [...] 04/03/2024 Patient Name: MEL POP : 1940 [facility]#: [id number] Exam Date/Time: 04/03/2024 21:06 Procedure: CT HEAD [...] completing clinical documentation as well as with [id number] patient care, performing a medically appropriate examination, [...] well as answering questions. Andre Patel MD [facility] Phone: 04-04-2024 Consult note Formatting of th is note is different from the original. Images from the original note were not included. [facility] Hematology Oncology Inpatient Consultation [facility] Mel Pop : 1940(83 y.o.) Date: [...] afib, hypertension, and GERD who presented to [facility] for right lower extremity pain. Reports [...] trifurcation vessels. Vascular surgery recommended transfer to [facility]. PVR and BLE US results [...] called her listed contacts (her friend and [id number] however they do not manage her pill [...] eliquis. I have left a voicemail with [facility] pharmacy in [place] to see if the Eliquis is being [...] min Stress: No Stress Concern Present (04/04/2024) Citizen Of [place] [employer]ational Health - Occupational Stress Questionnaire Feeling of Stress : Not at all Social Connections: Moderately Isolated (04/04/2024) Social Connection and Isolation Panel [NHANES] Frequency of Communication with Friends and Family: More than three times a week Frequency of Social Gatherings with Friends and Family: More than three times a week Attends Jainism Services: 1 to 4 times per year [...] 04/03/2024 [facility] 1940 [id number] Exam Date/Time: 04/03/2024 21:14 Procedure: CTA AORTA [...] 04/03/2024 [facility] 1940 [id number] Exam Date/Time: 04/03/2024 21:06 Procedure: CT HEAD [...] completing clinical documentation as well as with [id number] patient care, performing a medically appropriate examination, [...] Lolita Sarah MD PGY5, General Surgery Pager #[phone] Past Medical History: Diagnosis Date Asthma Essential [...] min Stress: No Stress Concern Present (04/04/2024) Citizen Of [place] [facility] [employer] - Occupational Stress Questionnaire Feeling of Stress : Not at all Social Connections: Moderately Isolated (04/04/2024) Social Connection and Isolation Panel [NHANES] Frequency of Communication with Friends and Family: More than three times a week Frequency of Social Gatherings with Friends and Family: More than three times a week Attends Jainism Services: 1 to 4 times per year [...] TESTING: Patient Name: MEL POP : 1940 [facility]#: [id number] Exam Date/Time: 04/03/2024 21:14 Procedure: CTA AORTA [...] evidence of phlegmasia. Heparin gtt initiated at [facility] prior to transfer and continued here. She notes missed doses of her Eliquis. Recommend compression and elevation of the right lower extremity. Can consider mechanical thrombectomy however given patient's age, this may be more risk than of benefit. Will continue to monitor for symptom improvement on anticoagulation alone. documented in this encounter [facility] 04-04-2024 Note Formatting of this n ote might be different from the original. Care Managment Initial Assessment Date: 04/04/2024 Patient Name: Mel Pop : 1940 Patient Information Source of Information: Patient Cognition/Language: WFL - Within Functional Limits Permission given to speak with patient traveling representative/caregiver as indicated: Confirmation of Payer with [...] Home Health Services Care Services [facility] Dialysis Type: NA Durable Medical Equipment: Cane, [...] and indep. Pt active with [facility]- liaison following for continued services. Pt uses walker/cane at baseline. Pt has insurance, PCP and able to obtain meds. Pt's friends help with transportation. No needs antic at discharge. Virginia Rehman RN [facility] 04-04-2024 Note Formatting of this n ote might be different from the original. Care Managment Initial Assessment Date: 04/04/2024 Patient Name: Mel Pop : 1940 Patient Information Source of Information: Patient Cognition/Language: WFL - Within Functional Limits Permission given to speak with patient traveling representative/caregiver as indicated: Confirmation of Payer with [...] needs antic at discharge. Virginia Rehman RN [facility] 04-04-2024 Note Formatting of this n ote is different from the original. Start PACC Note Home Health Referral Educated patient on Home Care and services available. Patient offered choice of available HHC and agreeable to SN/PT services with [facility]. Care Types: [...] is noted as yes - consider a EMPLOYMENT PROGRAMS ANALYST evaluation once the patient returns home. START PATIENT REGISTRATION INFORMATION Order Information Order Signing Physician: Robert Vigil MD Service Ordered RN ?: Yes Service Ordered PT ?: Yes Service Ordered OT ?: No Service Ordered ST ?: No Service Ordered EMPLOYMENT PROGRAMS ANALYST?:No Service Ordered ASBESTOS SHINGLE ROOFER?: No Following Physician: Jared Evans MD Following Physician Overseeing Physician: Jared Evans MD (Required for Residents only) Agreeable to Follow? Yes Date/Time of Call 04/04/24 11:36 AM, Spoke with: Patient is a DEB. Care Coordination Same Day SOC?: No Primary Care Physician: Jared Evans MD Primary Care Physician Primary Care Physician Address: [address] [place] [id number] Visit Instructions: N/A Service Discharge Location Type: Home with Home Care Service Facility Name: N/A Service Floor Facility: N/A Service Room No: N/A Demographics Patient Last Name: Pop Patient First Name: Mel Language/Communication Barrier: none Service Address: [address] Service City: [place] Service ST: [place] Service ZIP: [address] Service Other phone numbers: Telephone Information: Emergency [...] Caregiver Phone Number: na Caregiver Notes: N/A [employer] List No END PATIENT REGISTRATION INFORMATION Pt [...] intervention. Discharge Date: pending Referral Source-PACC: (Hospital/Unit): [facility] / N4-461/N4-461 B End PACC Note [facility] 04-04-2024 Note Formatting of this n ote is different from the original. Start PACC Note Home Health Referral Educated patient on Home Care and services available. Patient offered choice of available HHC and agreeable to SN/PT services with [facility]. Care Types: [...] is noted as yes - consider a EMPLOYMENT PROGRAMS ANALYST evaluation once the patient returns home. START PATIENT REGISTRATION INFORMATION Order Information Order Signing Physician: Robert Vigil MD Service Ordered RN ?: Yes Service Ordered PT ?: Yes Service Ordered OT ?: No Service Ordered ST ?: No Service Ordered EMPLOYMENT PROGRAMS ANALYST?:No Service Ordered ASBESTOS SHINGLE ROOFER?: No Following Physician: Jared Evans MD Following Physician Overseeing Physician: Jared Evans MD (Required for Residents only) Agreeable to Follow? Yes Date/Time of Call 04/04/24 11:36 AM, Spoke with: Patient is a DEB. Care Coordination Same Day SOC?: No Primary Care Physician: Jared Evans MD Primary Care Physician Primary Care Physician Address: [address] [place] [address] Visit Instructions: N/A Service Discharge Location Type: Home with Home Care Service Facility Name: N/A Service Floor Facility: N/A Service Room No: N/A Demographics Patient Last Name: Jose Alberto Patient First Name: Mel Language/Communication Barrier: none Service Address: [address] Service City: [place] Service ST: [place] Service ZIP: [address] Service Other phone numbers: Telephone Information: Emergency [...] Caregiver Phone Number: na Caregiver Notes: N/A [employer] List No END PATIENT REGISTRATION INFORMATION Pt [...] intervention. Discharge Date: pending Referral Source-PACC: (Hospital/Unit): [facility] / N4-461/N4-461 B End PACC Note [facility] 04-04-2024 Plan of care note The patient is Moderately Stable - Low risk of patient condition declining or worsening The patient's goals for the shift include safety The clinical goals for the shift include therapeutic aptt [facility] 04-04-2024 Note Formatting of this n ote might be different from the original. Patient is currently active with [facility]. The patients current certification period will on 05/18/24. The patient is currently receiving PT services through the agency. Director Of Employer Services to continue to follow. [facility] 04-04-2024 Note Formatting of this n ote might be different from the original. Patient is currently active with [facility]. The patients current certification period will on 05/18/24. The patient is currently receiving PT services through the agency. Director Of Employer Services to continue to follow. [facility] 04-04-2024 Consult note Associated Order (s): IP [...] Lolita Sarah MD PGY5, General Surgery Pager #[phone] Past Medical History: Diagnosis Date Asthma Essential [...] min Stress: No Stress Concern Present (04/04/2024) Citizen Of [place] [facility] [employer] [facility] - Occupational Stress Questionnaire Feeling of Stress : Not at all Social Connections: Moderately Isolated (04/04/2024) Social Connection and Isolation Panel [NHANES] Frequency of Communication with Friends and Family: More than three times a week Frequency of Social Gatherings with Friends and Family: More than three times a week Attends Jainism Services: 1 to 4 times per year [...] TESTING: Patient Name: MEL POP : 1940 [facility]#: [id number] Exam Date/Time: 04/03/2024 21:14 Procedure: CTA AORTA [...] evidence of phlegmasia. Heparin gtt initiated at [facility] prior to transfer and continued here. She notes missed doses of her Eliquis. Recommend compression and elevation of the right lower extremity. Can consider mechanical thrombectomy however given patient's age, this may be more risk than of benefit. Will continue to monitor for symptom improvement on anticoagulation alone. [facility] Phone: 09-18-2024 Note Formatting of this n [...] - DO NOT do CPR, intubation] [_] [DNR-CEMENT LOADER - Comfort care only] [_] DNR form [...] with patient and/or family/surrogate. Pratibha Avelar DO [facility] care [facility] 04/04/2024, 5:40 AM [facility] 04-04-2024 Note Formatting of this n ote [...] - DO NOT do CPR, intubation] [_] [DNR-CEMENT LOADER - Comfort care only] [_] DNR form [...] with patient and/or family/surrogate. Pratibha Avelar DO [facility] 04/04/2024, 5:40 AM [facility] 04-04-2024 History and physical note Attending History [...] min Stress: No Stress Concern Present (04/04/2024) Citizen Of [place] [facility] - Occupational Stress Questionnaire Feeling of Stress : Not at all Social Connections: Moderately Isolated (04/04/2024) Social Connection and Isolation Panel [NHANES] Frequency of Communication with Friends and Family: More than three times a week Frequency of Social Gatherings with Friends and Family: More than three times a week Attends Jainism Services: 1 to 4 times per year [...] DO Division of Hospitalist Medicine Inpatient Medical Services/[facility] Work Phone: 04-04-2024 Note [facility] 04-04-2024 History and physical note [...] min Stress: No Stress Concern Present (04/04/2024) Citizen Of [place] [facility] [employer] - Occupational Stress Questionnaire Feeling of Stress : Not at all Social Connections: Moderately Isolated (04/04/2024) Social Connection and Isolation Panel [NHANES] Frequency of Communication with Friends and Family: More than three times a week Frequency of Social Gatherings with Friends and Family: More than three times a week Attends Jainism Services: 1 to 4 times per year [...] Relation: Child Pratibha Avelar DO [facility] documented in this encounter [facility] 04-04-2024 Plan of care note The patient is Moderately Stable - Low risk of patient condition declining or worsening The patient's goals for the shift include met The clinical goals for the shift include met Over the shift, the patient did not make progress toward the following goals. Barriers to progression include . Recommendations to address these barriers include . [facility] 04-04-2024 Emergency department Note Report to Delia Bond RN 04/04/24341 [facility] 04-04-2024 Emergency department Note Report to Delia Bond RN 04/04/24341 Multiple attempts made to call report to [facility] with phone number provided by machine operator cane cutter, but when phone number dialed RN only gets busy tone. Will try again. Shannon Bond RN 04/04/24 0331 [facility] at bedside to transport pt to [facility]. Paperwork with EMS Shannon Bond [...] Strain: Low Risk (05/18/2022) Received from [facility] Overall Financial Resource Strain (CARDIA) Difficulty of Paying Living Expenses: Not hard at all Food Insecurity: No Food Insecurity (05/18/2022) Received from [facility] Hunger Vital Sign Worried About Running Out of Food in the Last Year: Never true Ran Out of Food in the Last Year: Never true Transportation Needs: No Transportation Needs (05/18/2022) Received from [facility] PRAPARE - Transportation Lack of Transportation (Medical): No Lack of Transportation (Non-Medical): No Housing Stability: Unknown (05/18/2022) Received from [facility] Housing Stability Vital Sign Unable to [...] extremities will heparinize or admit her to [facility] in case she needs an emergent angio.. 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 Patient admitted to [facility]. Patient in agreement with plan. [...] other complaints. documented in this encounter [facility] 04-04-2024 Emergency department Note Multiple attempts made to call report to [facility] with phone number provided by machine operator cane cutter, but when phone number dialed RN only gets busy tone. Will try again. Shannon Bond RN 04/04/24 0331 [facility] 04-04-2024 Emergency department Note [facility] at bedside to transport pt to [facility]. Paperwork with EMS Shannon Bond RN 04/04/24 0314 [facility] 04-03-2024 Emergency department Triage note Pt presents [...] upon arrival. No SOB or other complaints. [facility] 04-03-2024 Physician Emergency department Note EMERGENCY DEPARTMENT [...] Strain: Low Risk (05/18/2022) Received from [facility] Overall Financial Resource Strain (CARDIA) Difficulty of Paying Living Expenses: Not hard at all Food Insecurity: No Food Insecurity (05/18/2022) Received from [facility] Hunger Vital Sign Worried About Running Out of Food in the Last Year: Never true Ran Out of Food in the Last Year: Never true Transportation Needs: No Transportation Needs (05/18/2022) Received from [facility] PRAPARE - Transportation Lack of Transportation (Medical): No Lack of Transportation (Non-Medical): No Housing Stability: Unknown (05/18/2022) Received from [facility] Housing Stability Vital Sign Unable to [...] [facility] (Per Emergency Physician): Interpretation per the [...] I also reviewed external records from [facility]. I discussed their care with none. Consideration for escalation of care with: Admission/observation discussed case with Dr. Blankenship, will place her on heparin, she does have reconstitution past the mid femoral occlusion and she has normal range of motion to the lower extremities but she has severe disease to the lower extremities will heparinize or admit her to [facility] in case she needs an emergent angio.. [...] Medicine Provider SEBASTIAN Herrera CNP 04/03/24 2238 [facility] 04-03-2024 Physician Emergency department Note Emergency Department Encounter [facility] Patient: Mel [...] consulted recommends heparin drip and transferred to [facility], 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 Patient admitted to [facility]. Patient in agreement with plan. [...] [employer] Winifred Cornell DO 04/06/24 1625 [facility] Work Phone: 07-27-2023 History of Present illness Narrative [facility] [address] [place] [address] [address] [facility] [address] Dept: [phone] Dept Mel Serna Pop 1940 [id number] 07/27/2023 HISTORY OF PRESENT ILLNESS: Mel is [...] improve. Electronically signed by Ming Weinberg MD [facility] Department of Orthopedic surgery 07/27/2023 5:21 PM Voice recognition was used for portions of this note and although it was reviewed prior to signing some incorrect words or phrases could be present. documented in this encounter [facility] 07-06-2022 Miscellaneous Notes PATIENT INFORMATION Record ID: [id number] Patient Name: Mel [facility]: [facility] Barton: [facility] Attending: Iwona Chu Center: Internal Medicine and Geriatrics INSTRUCTIONS All Clear SN to remind patient of next upcoming appointment date, time, location All Clear All Clear All Clear SURVEY INFORMATION Medical/Nurse Restoration Technician: Inés Tubbs 1. Your discharge instructions are [...] (Standard Question) No documented in this encounter [facility] 06-29-2022 Note HNO ID: [id number] Author: Joana Tolbert RPh Service: Pharmacy Author [...] sent to [facility] [address] [address] Hours: Tuesday-Tuesday, 8am-4:30pm apixaban 5 mg (74 tabs) ascorbic acid (vitamin C) 500 mg tablet bacitracin 500 unit/gram ointment guaiFENesin 600 mg 12 hr tablet HYDROcodone-acetaminophen 5-325 mg per tablet lactobacillus rhamnosus 10 billion cell capsule metoprolol tartrate (short acting) [address] 40 mg tablet sucralfate 1 gram tablet [facility] 06-29-2022 Note HNO ID: [id number] Author: Kassidy Mejia RN Service: Care Management [...] needs and plan for meeting these needs: [facility] HANDOFF COMMUNICATION: TRANSPORTATION ARRANGEMENTS: Transportation Arrangements: Car ADDITIONAL CONTACT RESOURCES: [facility] was able to approve and deliver home O2. SIGNATURE: Kassidy Mejia RN PATIENT NAME: Mel Castillo DATE: June 29, 2022 TIME: 12:38 PM PAGER/CONTACT #: [phone] [facility] 06-28-2022 Note HNO ID: [id number] Author: Iwona Chu DO Service: Hospital Medicine Author Type: Physician Type: Progress Notes Filed: 06/28/2022 8:58 PM Note Text: Needs O2 arranged before discharge [facility] 06-28-2022 Note HNO ID: [id number] Author: Irene Han RN Service: Care Management [...] Person (verbalized understanding) Referral sent to [facility] for home going O2. Awaiting ambulatory pox to be completed. Plan to return home with family support and HHC through [facility]. Family to transport. Will need home O2/HC orders, prior to dc. IMM completed. UPDATE @ 4095: [facility] is outside of the patient's service area. Additional DMR referrals sent to [facility] and [facility]; awaiting response. Will need accepting DMR provider and home O2 delivery, prior to discharge. Oxygen/HC orders in [facility]. SIGNATURE: Irene Han RN PATIENT NAME: Mel Castillo DATE: June 28, 2022 TIME: 1:58 PM PAGER/CONTACT #: [phone] [facility] 06-28-2022 Note HNO ID: [id number] Author: Iwona Chu DO Service: Hospital Medicine [...] micropuncture needle and serially upsized to a 5-Angolan sheath. A venogram was then performed, which [...] time, the sheath was upsized to an 8-Angolan sheath. An intravascular ultrasound was performed. This [...] GI (more content not included)... [facility] 06-27-2022 Note HNO ID: [id number] Author: Iwona Chu DO Service: Hospital Medicine [...] micropuncture needle and serially upsized to a 5-Angolan sheath. A venogram was then performed, which [...] time, the sheath was upsized to an 8-Angolan sheath. An intravascular ultrasound was performed. This [...] hh (more content not included)... [facility] 06-26-2022 Note HNO ID: [id number] Author: Iwona Chu DO Service: Hospital Medicine [...] micropuncture needle and serially upsized to a 5-Angolan sheath. A venogram was then performed, which [...] time, the sheath was upsized to an 8-Angolan sheath. An intravascular ultrasound was performed. This [...] subacute/SNF (more content not included)... [facility] 06-25-2022 Note HNO ID: [id number] Author: Heron Ayers MD Service: Hospital Medicine [...] Given, 06/25 84106/24/22181207/02/2285806/16/221944 vte current anticoag therapy (wa,wv) 06/16/221944 activity - mobilize patient (wa,wv) VTE Prophylaxis: VTE prophylaxis appropriate Disposition: Home Plan of care discussed with: Provider, RN, Patient SIGNATURE: Heron Ayers MD PATIENT NAME: Mel Castillo DATE: June 25, 2022 TIME: 12:03 PM etx [id number] [facility] 06-25-2022 Note HNO ID: [id number] Author: Kassidy Mejia RN Service: Care Management [...] 25, 2022 TIME: 11:30 AM PAGER/CONTACT #: [phone] [facility] 06-24-2022 Note HNO ID: [id number] Author: Richie Yi MD Service: General Internal Medicine Author Type: Physician Type: Progress Notes Filed: 06/24/2022 6:34 PM Note Text: DEPARTMENT OF HOSPITAL MEDICINE PROGRESS NOTE SERVICE DATE: 06/23/2022 SERVICE TIME: 7:19 PM Hospital Medicine/Primary Attending: Richie Yi MD NIGHT AND WEEKEND COVERAGE: [place] COVERAGE: After 7pm, please call cross cover pager #[phone] Subjective Patient was seen today. She is [...] 0300 06/16/22 194 vte current anticoag therapy (wa,wv) 06/16/221944 activity - mobilize patient (wa,wv) VTE Prophylaxis: VTE prophylaxis appropriate Disposition: To be determined Plan of care discussed with: Provider, RN, Patient SIGNATURE: Richie Yi MD PATIENT NAME: Mel Castillo DATE: June 23, 2022 TIME: 7:19 PM etx [id number] [facility] 06-24-2022 Note HNO ID: [id number] Author: SHAQUILLE Kaye Service: Care Management Author Type: Decorating Kiln Operator Type: Care Mgt Progress Note Filed: 06/24/2022 [...] 24, 2022 TIME: 1:02 PM PAGER/CONTACT #: [phone] [facility] 06-23-2022 Note HNO ID: [id number] Author: Richie Yi MD Service: General Internal Medicine Author Type: Physician Type: Progress Notes Filed: 06/23/2022 7:28 PM Note Text: DEPARTMENT OF HOSPITAL MEDICINE PROGRESS NOTE SERVICE DATE: 06/23/2022 SERVICE TIME: 7:19 PM Hospital Medicine/Primary Attending: Richie Yi MD NIGHT AND WEEKEND COVERAGE: [place] COVERAGE: After 7pm, please call cross cover pager #[phone] Subjective Patient was seen today. She is [...] 1028 -- 06/16/221944 vte current anticoag therapy ([place], [place]) 06/16/221944 activity - mobilize patient ([place]) VTE Prophylaxis: VTE prophylaxis appropriate Disposition: To be determined Plan of care discussed with: Provider, RN, Patient SIGNATURE: Richie Yi MD PATIENT NAME: Mel Castillo DATE: June 23, 2022 TIME: 7:19 PM etx [id number] [facility] 06-23-2022 Note HNO ID: [id number] Author: Kassidy Mejia RN Service: Care Management Author Type: Registered Nurse Type: Care Mgt Progress Note Filed: 06/23/2022 4:00 PM Note Text: CARE MANAGEMENT PROGRESS NOTE SERVICE DATE: 06/23/2022 SERVICE TIME: 3:55 PM LOS: 7 days Spoke with pt at the bedside. Discussed SNF placement. Auth obtained for [facility]- pt would be responsible for copay 50% of cost per day for days 1-100. Pt refusing SNF at this time. Pt would like to d/c home with her son and dtr-in-law to ([address] [place] [address]). Pt would agreeable to [facility]- Referrals sent. Pt may need home O2- await ambulatory pulse ox. Family likely able to transport at d/c. CM to follow. SIGNATURE: Kassidy Mejia RN PATIENT NAME: Mel Castillo DATE: June 23, 2022 TIME: 3:53 PM PAGER/CONTACT #: [phone] [facility] 06-22-2022 Note HNO ID: [id number] Author: Dwayne Zaidi MD Service: Hospital Medicine Author Type: Physician Type: Progress Notes Filed: 06/22/2022 6:47 PM Note Text: DEPARTMENT OF HOSPITAL MEDICINE PROGRESS NOTE SERVICE DATE: 06/22/2022 SERVICE TIME: 6:42 PM Hospital Medicine/Primary Attending: Dwayne Zaidi MD NIGHT AND WEEKEND COVERAGE: After 7pm please page [phone] CHIEF COMPLAINT: Follow-up for acute left lower [...] bowel sounds normally heard, no mass palpable PPA TEACHER- cranial nerves 2 to 12 grossly intact, [...] -- (more content not included)... [facility] 06-22-2022 Note HNO ID: [id number] Author: Kassidy Mejia RN Service: Care Management Author Type: Registered Nurse Type: Care Mgt Progress Note Filed: 06/22/2022 10:15 AM Note Text: CARE MANAGEMENT PROGRESS NOTE SERVICE DATE: 06/22/2022 SERVICE TIME: 10:15 AM LOS: 6 days IMM Follow Up Copy Given: Yes Copy given to:: Patient Method: In Person (verbal) [facility] is able to accept pt. Precert tasked. Pt will need cot for transport. CM to follow. SIGNATURE: Kassidy Mejia RN PATIENT NAME: Mel Castillo DATE: June 22, 2022 TIME: 10:14 AM PAGER/CONTACT #: [phone] [facility] 06-21-2022 Note HNO ID: [id number] Author: Dwayne Zaidi MD Service: Hospital Medicine Author Type: Physician Type: Progress Notes Filed: 06/21/2022 4:10 PM Note Text: DEPARTMENT OF HOSPITAL MEDICINE PROGRESS NOTE SERVICE DATE: 06/21/2022 SERVICE TIME: 4:04 PM Hospital Medicine/Primary Attending: Dwayne Zaidi MD NIGHT AND WEEKEND COVERAGE: After 7pm please page [phone] CHIEF COMPLAINT: Follow-up for acute left lower [...] bowel sounds normally heard, no mass palpable PPA TEACHER- cranial nerves 2 to 12 grossly intact, [...] on file COPD (chronic obstructive pulmonary disease) ([facility]) POA: Status not on file Tobacco abuse [...] Has (more content not included)... [facility] 06-21-2022 Note HNO ID: [id number] Author: Kassidy Mejia RN Service: Care Management Author Type: Registered Nurse Type: Care Mgt Progress Note Filed: 06/21/2022 3:44 PM Note Text: CARE MANAGEMENT PROGRESS NOTE SERVICE DATE: 06/21/2022 SERVICE TIME: 3:41 PM LOS: 5 days Spoke with pt at the bedside. Pt states that she lives at home alone. PT/OT rec SNF. Pt would like [facility]- referral sent. Await acceptance. Pt will need precert when medically stable. Pt will need cot for transport. Cm to follow. SIGNATURE: Kassidy Mejia RN PATIENT NAME: Mel Castillo DATE: June 21, 2022 TIME: 3:41 PM PAGER/CONTACT #: [phone] [facility] 06-21-2022 Note HNO ID: [id number] Author: Primo Dodd APRN.SHAMIKA Service: Gastroenterology Author [...] evidence (more content not included)... [facility] 06-20-2022 Note HNO ID: [id number] Author: Acacia Hardin DO Service: General Surgery Author Type: Resident Type: Plan of Care Filed: 06/20/2022 1:40 PM Note Text: Plan of Care Dr. 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 Spoke with Dr. Wilson, information technology security analyst for Dr. Rodriguez, and she states these [...] Hardin DO 06/20/2022 1:36 PM [facility] 06-20-2022 Note HNO ID: [id number] Author: Dwayne Zaidi MD Service: Hospital Medicine Author Type: Physician Type: Progress Notes Filed: 06/20/2022 12:39 PM Note Text: DEPARTMENT OF HOSPITAL MEDICINE PROGRESS NOTE SERVICE DATE: 06/20/2022 SERVICE TIME: 12:35 PM Hospital Medicine/Primary Attending: Dwayne Zaidi MD NIGHT AND WEEKEND COVERAGE: After 7pm please page [phone] CHIEF COMPLAINT: Follow-up for acute left lower [...] bowel sounds normally heard, no mass palpable PPA TEACHER- cranial nerves 2 to 12 grossly intact, [...] tahmina (more content not included)... [facility] 06-19-2022 Note HNO ID: [id number] Author: wDayne Zaidi MD Service: Hospital Medicine Author Type: Physician Type: Progress Notes Filed: 06/19/2022 4:33 PM Note Text: DEPARTMENT OF HOSPITAL MEDICINE PROGRESS NOTE SERVICE DATE: 06/19/2022 SERVICE TIME: 4:29 PM Hospital Medicine/Primary Attending: Dwayne Zaidi MD NIGHT AND WEEKEND COVERAGE: After 7pm please page [phone] CHIEF COMPLAINT: Follow-up for acute left lower [...] bowel sounds normally heard, no mass palpable PPA TEACHER- cranial nerves 2 to 12 grossly intact, [...] andrew (more content not included)... [facility] 06-18-2022 Note HNO ID: [id number] Author: Emanuel Hull MD Service: General Surgery [...] June 18, 2022 5:39 PM [facility] 06-18-2022 Note HNO ID: [id number] Author: Dwayne Zaidi MD Service: Hospital Medicine Author Type: Physician Type: Progress Notes Filed: 06/18/2022 5:37 PM Note Text: DEPARTMENT OF HOSPITAL MEDICINE PROGRESS NOTE SERVICE DATE: 06/18/2022 SERVICE TIME: 5:35 PM Hospital Medicine/Primary Attending: Dwayne Zaidi MD NIGHT AND WEEKEND COVERAGE: After 7pm please page [phone] CHIEF COMPLAINT: Follow-up for acute left lower [...] bowel sounds normally heard, no mass palpable PPA TEACHER- cranial nerves 2 to 12 grossly intact, [...] for (more content not included)... [facility] 06-18-2022 Note HNO ID: [id number] Author: Kassidy Mejia RN Service: Care Management [...] 18, 2022 TIME: 3:46 PM PAGER/CONTACT #: [phone] [facility] 06-17-2022 Note HNO ID: [id number] Author: Eliza Parikh RN Service: Nursing Author Type: Registered Nurse Type: Nursing Progress Note Filed: 06/17/2022 7:24 PM Note Text: Pt to 4200 via bed. Pt tolerated well. [facility] 06-17-2022 Note HNO ID: [id number] Author: Eliza Parikh RN Service: Nursing Author Type: Registered Nurse Type: Nursing Progress Note Filed: 06/17/2022 4:35 PM Note Text: Report to 4[address] Jayne FRAGA [facility] 06-17-2022 Note HNO ID: [id number] Author: Efrain Ivey (Application Developer) Service: Pharmacy Author Type: Glass Edger Type: Plan of Care Filed: 06/17/2022 2:16 PM Note Text: PHARMACY MEDICATION REVIEW Patient Name: Mel Castillo : 1940 The following medications were updated within the MANAGER ACQUISITION medication list: Medications ADDED to MANAGER ACQUISITION medication list amLODIPine (NORVASC) 10 mg tablet OTHER Yes Yes dexAMETHasone (DECADRON) 4 mg tablet OTHER Yes Yes lisinopril (ZESTRIL, PRINIVIL) 5 mg tablet OTHER Yes Yes RX filled via [employer] and verified with pt. herself Medications CHANGED on MANAGER ACQUISITION medication list na Medications REMOVED from MANAGER ACQUISITION medication list na Additional comments: I was able to talk with the pt. about her home medications. She states she takes the 3 RX medications recorded below. These 3 medications were added to her MANAGER ACQUISITION list. She has finished Paxlovid and a physician stopped Augmentin per pt. interview Required follow up for nursing. Medication history completed by Historian. No nursing follow up required. The below information represents the best possible medication history: Yes Medication history completed by: Glass Edger: Efrain Ivey (Application Developer) Source of history: Patient: Reliability of source: Appears reliable, clearly identified: Medication name, Medication dose, Medication route, and Medication frequency and Pharmacy records: Epic e-script [facility] Medication nonadherence identified: No barriers noted Reconciliation completed: No, pharmacist not yet reviewed Patient interested in Bedside Delivery Services or using OP Pharmacy at discharge? No Preferred outpatient pharmacy: [id number] [place] [address] - [phone] [phone] Allergies: Percocet [Oxycodone* Itching Prior to Admission [...] once daily. Facility-Administered Medications: None Efrain Ivey (INBEP) phone [phone] 06/17/2022 [facility] 06-17-2022 Note HNO ID: [id number] Author: Ladan Adame RN Service: Care Management [...] 17, 2022 TIME: 12:37 PM PAGER/CONTACT #: [phone] [facility] 06-17-2022 Note HNO ID: [id number] Author: Eliza Parikh RN Service: Nursing Author Type: Registered Nurse Type: Nursing Progress Note Filed: 06/17/2022 10:40 AM Note Text: Echo at bedside [facility] 06-16-2022 Note HNO ID: [id number] Author: Cirilo Alaniz APRN.LAND MANAGER Service: Anesthesiology Author Type: Nurse Manpower Development Specialist Type: Anesthesia Procedure Notes Filed: 06/16/2022 5:04 PM Note Text: ANESTHESIOLOGY PROCEDURE NOTE Airway General Information Procedure Start Time/Medication Administration: 06/16/2022 4:29 PM Patient location during procedure: OR Timeout Performed Pre-procedure: timeout performed Consent Obtained: Yes Patient identity confirmed: arm band and patient Staffing LAND MANAGER: Cirilo Alaniz APRN.LAND MANAGER Indications and Patient Condition Indications for airway [...] 1 Airway not difficult SIGNATURE: Cirilo Alaniz APRN.LAND MANAGER PATIENT NAME: Mel Castillo DATE: June 16, 2022 TIME: 5:03 PM CSN: [id number] [facility] 06-16-2022 Note HNO ID: [id number] Author: Jean Pierre Gamboa RPh Service: Pharmacy [...] patient. Signature: Jean Pierre Gamboa tim Pager/Extension: [phone] [facility] 05-17-2022 History of Present illness Narrative [...] seen in the emergency room at [facility] for probable admission for IV antibiotics and airway concern. Patient understands this and will leave shortly. Josiah Barnes MD Findings will be communicated to the referring physician via mail or electronic medical record. documented in this encounter [facility] 05-14-2022 Instructions Jared Velazquez PA-C [...] Jared Velazquez PA-C documented in this encounter [facility] 05-14-2022 History of Present illness [...] which included preparing to see the patient, [id number] patient care, completing clinical documentation, performing a medically appropriate examination, counseling and educating the patient/family/caregiver, and ordering medications, tests, or procedures. 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 [facility] Diagnosis Acute bacterial sialadenitis- Primary Bashir's, angina [facility] Diagnosis Localized swelling, mass and lump, neck Swelling, mass, or lump in head and neck [facility] Localized swelling, mass and lump, neck Swelling, mass, or lump in head and neck [facility] Diagnosis Localized swelling, mass and lump, neck- Primary Swelling, mass, or lump in head and neck Localized swelling, mass and lump, neck Swelling, mass, or lump in head and neck [facility] Diagnosis Other specified soft tissue disorders [facility] Diagnosis Localized swelling, mass and lump, neck- Primary Swelling, mass, or lump in head and neck Localized swelling, mass and lump, neck Swelling, mass, or lump in head and neck [facility] Diagnosis Abnormal findings on diagnostic imaging of other specified body structures Pain in left leg [facility]* 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[facility]* Diagnosis Other specified soft tissue disorders- Primary Other specified soft tissue disorders [facility]* Diagnosis Abnormal findings on diagnostic imaging of other specified body structures- Primary Pain in left leg Abnormal findings on diagnostic imaging of other specified body structures Pain in left leg [facility]* Diagnosis Peripheral arterial disease (HCC)- Primary Unspecified peripheral vascular disease Right leg pain Pain in soft tissues of limb Peripheral arterial disease (HCC) Unspecified peripheral vascular disease Right leg weakness Muscle weakness (generalized) Atrial fibrillation, unspecified type (HCC) Ischemic leg Unspecified circulatory system disorder [facility]* Diagnosis Deep vein thrombosis (DVT) of lower extremity, unspecified chronicity, unspecified laterality, unspecified vein (HCC)- Primary [facility]* Diagnosis Atrial fibrillation, unspecified type (HCC) Acute venous embolism and thrombosis of deep vessels of proximal end of right lower extremity (HCC) [facility]* Diagnosis Acute deep vein thrombosis (DVT) of iliac vein of right lower extremity (HCC)- Primary PAD (peripheral artery disease) (HCC) Unspecified peripheral vascular disease [facility]* Diagnosis Deep vein thrombosis (DVT) of lower extremity, unspecified chronicity, unspecified laterality, unspecified vein (HCC) Atrial fibrillation, unspecified type (HCC) Acute venous embolism and thrombosis of deep vessels of proximal end of right lower extremity (HCC) [facility]* Diagnosis Atrial fibrillation, unspecified type (HCC) Acute venous embolism and thrombosis of deep vessels of proximal end of right lower extremity (HCC) [facility]* Diagnosis Atrial fibrillation, unspecified type (HCC) Acute venous embolism and thrombosis of deep vessels of proximal end of right lower extremity (HCC) [facility]* Diagnosis Paroxysmal atrial fibrillation (HCC) Atrial fibrillation documented in this encounter [facility] note* Diagnosis Atrial fibrillation, unspecified type (HCC) [...] or 3b CKD (HCC) 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 (HCC) senior living current use of anticoagulant therapy Nicotine use disorder Tobacco use disorder Abnormal echocardiogram Nonspecific (abnormal) findings on radiological and other examination of other intrathoracic organs Left atrial mass documented in this encounter [facility] note* Diagnosis Retinal detachment, right- Primary Unspecified retinal detachment Vision loss of right eye Unqualified visual loss, one eye Acute intractable headache, unspecified headache type Visual disturbance, subjective Unspecified subjective visual disturbance Vision loss of right eye Unqualified visual loss, one eye Visual disturbance, subjective Unspecified subjective visual disturbance documented in this encounter [facility] note* Diagnosis 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 Hemorrhagic choroidal detachment Dislocation of intraocular lens, initial encounter [facility] Diagnosis 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 Hemorrhagic choroidal detachment documented in this encounter [facility] note* Diagnosis 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 Hemorrhagic choroidal detachment Dislocation of intraocular lens, initial encounter Hemorrhagic choroidal detachment of right eye Hemorrhagic choroidal detachment [facility] Diagnosis 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 Hemorrhagic choroidal detachment Hemorrhagic choroidal detachment of right eye Hemorrhagic choroidal detachment documented in this encounter [facility] note* Diagnosis Postoperative eye state- Primary Other states following surgery of eye and adnexa Hemorrhagic choroidal detachment of right eye Hemorrhagic choroidal detachment Pseudophakia, right eye Lens replaced by other means Subluxation of right lens Subluxation of lens documented in this encounter [facility] note* Diagnosis Paroxysmal atrial fibrillation (HCC)- Primary Atrial fibrillation Paroxysmal atrial fibrillation (HCC) Atrial fibrillation documented in this encounter [facility] note* Diagnosis Postoperative eye state Other states following surgery of eye and adnexa Hemorrhagic choroidal detachment of right eye Hemorrhagic choroidal detachment Pseudophakia, right eye Lens replaced by other means Subluxation of right lens Subluxation of lens Hemorrhagic choroidal detachment of right eye Hemorrhagic choroidal detachment [facility]* Diagnosis Post-operative state- Primary Other postprocedural status documented in this encounter [facility] note* Diagnosis Postoperative eye state Other states following surgery of eye and adnexa Hemorrhagic choroidal detachment of right eye Hemorrhagic choroidal detachment Pseudophakia, right eye Lens replaced by other means Subluxation of right lens Subluxation of lens documented in this encounter [facility] note* Diagnosis Aspiration pneumonitis (CMS/HCC) (HCC)- Primary Pneumonitis due to inhalation of food or vomitus Aspiration pneumonitis (CMS/HCC) (HCC) Pneumonitis due to inhalation of food or vomitus Vomiting and diarrhea LORENZA (acute kidney injury) (HCC) documented in this encounter [facility] note* Diagnosis Acute deep vein thrombosis (DVT) of iliac vein of right lower extremity (HCC)- Primary PAD (peripheral artery disease) (HCC) Unspecified peripheral vascular disease documented in this encounter [facility] note* Diagnosis Postoperative eye state Other states following surgery of eye and adnexa Hemorrhagic choroidal detachment of right eye Hemorrhagic choroidal detachment Pseudophakia, right eye Lens replaced by other means Subluxation of right lens Subluxation of lens [facility]* Diagnosis 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 Hemorrhagic choroidal detachment Right retinal detachment Unspecified retinal detachment Postoperative eye state Other states following surgery of eye and adnexa Pseudophakia, right eye Lens replaced by other means Subluxation of right lens Subluxation of lens [facility] noteNo assessment information availableWGood Samaritan Hospital Work Phone: Evaluation note* Diagnosis PAD (peripheral artery disease) (HCC)- Primary Unspecified peripheral vascular disease Skin ulcer of toe of right foot, limited to breakdown of skin (HCC) [facility] Diagnosis Critical limb ischemia of right lower extremity (HCC)- Primary documented in this encounter [facility] note* Diagnosis Pre-op evaluation- Primary Skin ulcer of right great toe (HCC) Critical limb ischemia of right lower extremity (HCC) [facility]* Diagnosis Skin ulcer of toe of right foot, limited to breakdown of skin (HCC)- Primary PAD (peripheral artery disease) (HCC) Unspecified peripheral vascular disease Aftercare following surgery of the circulatory system Aftercare following surgery of the circulatory system, NEC [facility]* Diagnosis Skin ulcer of toe of right foot, limited to breakdown of skin (HCC) PAD (peripheral artery disease) (HCC) Unspecified peripheral vascular disease Aftercare following surgery of the circulatory system Aftercare following surgery of the circulatory system, NEC [facility]* Diagnosis Aftercare following surgery of the circulatory system- Primary Aftercare following surgery of the circulatory system, NEC PAD (peripheral artery disease) (HCC) Unspecified peripheral vascular disease [facility]* Diagnosis 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 Hemorrhagic choroidal detachment documented in this encounter [facility] note* Diagnosis Right retinal detachment- Primary Unspecified retinal detachment Hemorrhagic choroidal detachment of right eye Hemorrhagic choroidal detachment Pseudophakia, right eye Lens replaced by other means documented in this encounter [facility] note* Diagnosis Acute deep vein thrombosis (DVT) of proximal vein of lower extremity, unspecified laterality (HCC)- Primary documented in this encounter [facility] for referral (narrative)No reason for referral information availableWGood Samaritan Hospital Work Phone: Reason for visit Narrative* Imaging (Routine) - Closed Specialty Diagnoses / Procedures Referred By Elvin leyva Referred To Contact Cardiology Diagnoses Paroxysmal atrial fibrillation (HCC) Procedures Transthoracic echocardiogram (TTE) complete with contrast, bubble, strain, and 3D PRN IL ECHO TTHRC R-T 2D W/WOM-MODE COMPL SPEC&COLR D IL TTE W OR WO FOL WCNICK,Jared De La Garza MD [address] [place] [id number] Phone: tel: fax: Referral ID Status Reason Start Date Expiration Date Visits Re quested Visits Authorized [id number] Closed 04/20/2024 04/20/2025 1 1 [facility] for visit Narrative* Auth/Cert (Routine) Specialty Diagnoses / Procedures Referred By Elvin t Referred To Contact Diagnoses Aspiration pneumonitis (CMS/HCC) (HCC) LORENZA (acute kidney injury) (HCC) Vomiting and diarrhea Procedures . Abbi Long, [address] [place] [address] Phone: tel: fax: [facility] [address] [place] [address] Phone: tel: Referral ID Status Reason Start Date Expiration Date Visits Re quested Visits Authorized [id number] 1 1 [facility] N[facility]ative* Auth/Cert (Routine) Specialty Diagnoses [...] CATH RS&I CHG AORTOGRAPHY ABDOMINAL SERIALOGRAPHY RS&I IL INTRODUCTION CATHETER AORTA IL REVSC OPN/PRG FEM/POP W/ANGIOPLASTY UNI IL REVSC OPN/PRQ TIB/PAMELA W/ANGIOPLASTY UNI IL REVSC OPN/PRQ TIB/PAMELA W/STNT/ANGIOP SM VSL IL REVSC OPN/PRQ FEM/POP W/STNT/ANGIOP SM VSL AORTOILIAC ANGIOGRAPHY, RIGHT LOWER EXTREMITY ANGIOGRAPHY WITH RUNOFF, POSSIBLE SUPERFICIAL FEMORAL ARTERY/POPLITEAL/TIBIAL ANGIOPLASTY/STENTING Kristyn Blankenship MD [address] [address] Phone: tel: fax: [facility] OR [address] [place] [address] Phone: tel: Referral ID Status Reason Start Date Expiration Date Visits Re quested Visits Authorized [id number] 1 1 [facility] Narrative* Imaging (Routine) - Closed Specialty Diagnoses / Procedures Referred By Elvin leyva Referred To Contact Vascular Surgery / Radiology Diagnoses Skin ulcer of toe of right foot, limited to breakdown of skin (HCC) PAD (peripheral artery disease) (HCC) Aftercare following surgery of the circulatory system Procedures Vascular US lower extremity arterial duplex right with MICHELLE Kristyn Blankenship MD [address] [address] Phone: tel: fax: [facility] [address] [place] [address] Phone: tel: fax: Referral ID Status Reason Start Date Expiration Date Visits Re quested Visits Authorized [id number] Closed 12/05/2024 12/05/2025 1 1 [facility] Discharge Instructions * Attachments The following attachments cannot be sent through Care Everywhere. * Pulp-Space Infection (Montserratian) documented in this encounter* Instructions* Tiffany Zhu [...] Documents on File Type Date Recorded Patient Business Quality Assurance Analyst Expl anation Power of Automotive Design Layout Drafter 04/06/2024 10:04 AM Date Activated Date Inactivated [...] Documents on File Type Date Recorded Patient Business Quality Assurance Analyst Expl anation Power of Automotive Design Layout Drafter 04/16/2024 1:26 PM Power of Automotive Design Layout Drafter 04/06/2024 10:04 AM Healthcare Agents on File [...] Documents on File Type Date Recorded Patient Business Quality Assurance Analyst Expl anation Power of Automotive Design Layout Drafter 04/16/2024 1:26 PM Power of Automotive Design Layout Drafter 04/06/2024 10:04 AM Date Activated Date Inactivated [...] Documents on File Type Date Recorded Patient Business Quality Assurance Analyst Expl anation Advance Directive(s) 06/27/2024 12:58 PM [...] Documents on File Type Date Recorded Patient Business Quality Assurance Analyst Expl anation Advance Directive(s) 06/27/2024 12:58 PM [...] Documents on File Type Date Recorded Patient Business Quality Assurance Analyst Expl anation DNR (Do Not Resuscitate) 07/13/2024 10:35 AM Power of Automotive Design Layout Drafter 04/16/2024 1:26 PM Power of Automotive Design Layout Drafter 04/06/2024 10:04 AM Date Activated Date Inactivated [...] Documents on File Type Date Recorded Patient Business Quality Assurance Analyst Expl anation DNR (Do Not Resuscitate) 07/13/2024 10:35 AM Power of Automotive Design Layout Drafter 04/16/2024 1:26 PM Power of Automotive Design Layout Drafter 04/06/2024 10:04 AM Date Activated Date Inactivated [...] First Alternate Health Care Agent Nadira Castillo Aygcksox-ry-vru First Alternat e Health Care Agent Healthcare Agents on File Name Relationship Healthcare Agent Relationship Communication Damaris DO NOT CALL-TERMINALLY ILL [place] Friend First Alternate Health Care Agent Nadira Castillo Njxwiamh-np-khx First Alternat e Health Care Agent Healthcare Agents on File Name Relationship Healthcare Agent Relationship Communication Damaris DO NOT CALL-TERMINALLY ILL [place] Friend First Alternate Health Care Agent Nadira Castillo [id number] First Alternat e Health Care Agent Date Activated Date Inactivated Comments 08/03/2024 10:17 AM 08/16/2024 4:47 PM Healthcare Agents on File Name Relationship Healthcare Agent Relationship Communication Damaris DO NOT CALL-TERMINALLY ILL [place] Friend First Alternate Health Care Agent Nadira Castillo Otqkabco-be-zej First Alternat e Health Care Agent Healthcare Agents on File Name Relationship Healthcare Agent Relationship Communication Damaris DO NOT CALL-TERMINALLY ILL [place] Friend First Alternate Health Care Agent Nadira Castillo Jowigixv-qq-ukx First Alternat e Health Care Agent Healthcare Agents on File Name Relationship Healthcare Agent Relationship Communication Damaris DO NOT CALL-TERMINALLY ILL [place] Friend First Alternate Health Care Agent Nadira Castillo Aibtmeuo-he-baf First Alternat e Health Care Agent Healthcare Agents on File Name Relationship Healthcare Agent Relationshi p Communication Nadira Castillo Itlttwwu-xu-aqr First Alternat e Health Care Agent Healthcare Agents on File Name Relationship Healthcare Agent Relationshi p Communication Nadira Castillo Ogkuredv-aa-izp First Alternat e Health Care Agent Summary [...] gland swelling Procedures CONSULT TO ENT OFFICE/OUTPATIENT [facility] 60-74 MINUTES Jared Velazquez PA-C [address] [place] [address] Referral ID Status Reason Start Date Expiration Date Visits Requested Visits Authorized [id number] Authorized PCP Requested Referral 2 05/14/2023 1 1 Specialty Diagnoses / Procedures Referred By Elvin leyva Referred To Contact Radiology Diagnoses Localized swelling, mass and lump, neck Procedures CT soft tissue neck w IV contrast Jared Evans MD [address] [place] [phone] Referral ID Status Reason Start Date Expiration Date Visits Re quested Visits Authorized [id number] Closed 03/08/2023 04/07/2023 1 1 Specialty Diagnoses / Procedures Referred By Elvin leyva Referred To Contact Cardiology Diagnoses Other specified soft tissue disorders Procedures Vascular US lower extremity venous duplex left Jared Evans MD [address] [place] [phone] Referral ID Status Reason Start Date Expiration Date V isits Requested Visits Authorized [id number] Pending Review 05/24/2023 05/23/2024 1 1 Specialty Diagnoses / Procedures Referred By Elvin leyva Referred To Contact Radiology Diagnoses Abnormal findings on diagnostic imaging of other specified body structures Pain in left leg Procedures MR tibia fibula left w and wo IV contrast Jared Evans MD [address] [place] [phone] Referral ID Status Reason Start Date Expiration Date Visits Re quested Visits Authorized [id number] Closed 06/01/2023 05/31/2024 1 1 Health Concerns [...] [facility] [address] [place] [address] Referral ID Status Reason Start Date Expiration Date Visits Re quested Visits Authorized [id number] 1 1 Reason Comments Hemorrhagic choroidal detachment [...] gland swelling Procedures CONSULT TO ENT OFFICE/OUTPATIENT [facility] 60-74 MINUTES Jared Velazquez PA-C [address] [place] [address] Referral ID Status Reason Start Date Expiration Date V isits Requested Visits Authorized [id number] Closed PCP Requested Referral 05/14/2022 05/14/2023 1 1 Reason Comments Follow Up Gyant interaction - F/U - attempt made. No answer. Reason Comments Follow Up Phone Call All Clear Specialty Diagnoses / Procedures Referred By Elvni leyva Referred To Contact Radiology Diagnoses Localized swelling, mass and lump, neck Procedures CT soft tissue neck w IV contrast Jared Evans MD [address] [place] [phone] Referral ID Status Reason Start Date Expiration Date Visits Re quested Visits Authorized [id number] Closed 03/08/2023 04/07/2023 1 1 Specialty Diagnoses / Procedures Referred By Elvin leyva Referred To Contact Cardiology Diagnoses Other specified soft tissue disorders Procedures Vascular US lower extremity venous duplex left Jared Evans MD [address] [place] [phone] Referral ID Status Reason Start Date Expiration Date V isits Requested Visits Authorized [id number] Pending Review 05/24/2023 05/23/2024 1 1 Specialty Diagnoses / Procedures Referred By Contac t Referred To Contact Radiology Diagnoses Abnormal findings on diagnostic imaging of other specified body structures Pain in left leg Procedures MR tibia fibula left w and wo IV contrast Jared Evans MD [address] [place] [phone] Referral ID Status Reason Start Date Expiration Date Visits Re quested Visits Authorized [id number] Closed 06/01/2023 05/31/2024 1 1 Reason Comments New Patient Mass left LE Specialty Diagnoses / Procedures Referred By Contac t Referred To Contact Sports Medicine Diagnoses Pain in leg, unspecified Jared Evans MD [address] [place] [phone] [place] [address] Referral ID Status Reason Start Date Expiration Date Visits Re quested Visits Authorized [id number] Closed 07/06/2023 07/05/2024 1 1 Reason Comments Numbness Leg Swelling Specialty Diagnoses / Procedures Referred By Contac t Referred To Contact Diagnoses Right leg pain Peripheral arterial disease (HCC) Right leg weakness Atrial fibrillation, unspecified type (HCC) Procedures . Pratibha Avelar, [address] [place] [address] [phone] Referral ID Status Reason Start Date Expiration Date Visits Re quested Visits Authorized [id number] 1 1 Reason Comments Follow-up 1st follow up RLE me chanical thrombectomy 04/06/24 (Krzysztof) Reason Onset Date Comments Med Refill 04/27/2024 Specialty Diagnoses / Procedures Referred By Contac t Referred To Contact Diagnoses [I63.9] - Cerebral infarction [facility] [address] [place] [address] Referral ID Status Reason Start Date Expiration Date V isits Requested Visits Authorized [id number] New Request 06/20/2024 08/19/2024 Reason Comments Eye Problem Pt reports blurred v ision, dizziness, and headache. LNW 07/04/24 @ 2130. Hx of strokes x 2, HTN, Afib, and right eye retinal detachment. Specialty Diagnoses / Procedures Referred By Elvin t Referred To Contact Diagnoses Retinal detachment, right Vision loss of right eye Procedures . Silvio Peres MD [address] [place] [address] Phone: tel: fax: [facility] [address] [place] [phone] Phone: tel: Referral ID Status Reason Start Date Expiration Date Visits Re quested Visits Authorized [id number] 1 1 Reason Comments Eye Pain Right [...] OF VITREOUS, CHOROIDAL FLUID, PARS PLANA APPROACH [facility] [address] [address] Referral ID Status Reason Start Date Expiration Date Visits Re quested Visits Authorized [id number] 1 1 Reason Comments 1 week post [...] stool. Specialty Diagnoses / Procedures Referred By Evlin t Referred To Contact Diagnoses Aspiration pneumonitis (CMS/HCC) (HCC) LORENZA (acute kidney injury) (HCC) Vomiting and diarrhea Procedures . Abbi Long DO [address] [place] [address] Phone: tel: fax: [facility] [address] [place] [phone] Phone: tel: Referral ID Status Reason Start Date Expiration Date Visits Re quested Visits Authorized [id number] 1 1 Reason Comments Follow-up 3 month follow up, P AD check ([facility] [place]) Reason Comments Post-op (Ophthalmology) Right Eye 1 marisela h Reason Comments Post op OD Reason Comments Follow-up R leg pain with grea t toe wound-PVR and CTA w runoff 03/2024 Reason Comments Follow-up 1st follow up RLE an juliana, possible SFA/pop/tib angioplasty/stenting 11/22/24 Reason Comments 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; 2nd follow up RLE angio, SFA/pop/tib angioplasty/stenting 11/22/24 ([facility] ) Reason Comments Post-op (Ophthalmology) Right Eye Retinal Detachment OD Eye Crusting OD In the mornings Reason Comments Follow-up INFORMATION SOURCE (unrecogn ized section and content) DATE CREATED AUTHOR 03/13/2020 [facility] DATE CREATED AUTHOR AUTHOR'S ORGANIZ ATION 06/30/2022 [facility] DATE CREATED AUTHOR AUTHOR'S ORGANIZ ATION 07/10/2024 [facility] DATE CREATED AUTHOR AUTHOR'S ORGANIZ ATION 12/14/2024 [facility] DATE CREATED AUTHOR AUTHOR'S ORGANIZ ATION 01/05/[address] [facility] DATE CREATED AUTHOR AUTHOR'S ORGANIZ ATION 03/17/2025 [facility] DATE CREATED AUTHOR AUTHOR'S ORGANIZ ATION 05/29/2025 [facility] Source Comments (unrecognize d section and content) In the event this informatio n is protected by the Federal Confidentiality of Alcohol and Drug Abuse Patient Records regulations: The Federal rules restrict any use of the information to criminally investigate or prosecute any alcohol or drug abuse patient.[facility] the event this information is protected by the Federal Confidentiality of Alcohol and Drug Abuse Patient Records regulations: The Federal rules restrict any use of the information to criminally investigate or prosecute any alcohol or drug abuse patient.[facility] the event this information is protected by the Federal Confidentiality of Alcohol and Drug Abuse Patient Records regulations: The Federal rules restrict any use of the information to criminally investigate or prosecute any alcohol or drug abuse patient.[facility] the event this information is protected by the Federal Confidentiality of Alcohol and Drug Abuse Patient Records regulations: The Federal rules restrict any use of the information to criminally investigate or prosecute any alcohol or drug abuse patient.[facility] the event this information is protected by the Federal Confidentiality of Alcohol and Drug Abuse Patient Records regulations: The Federal rules restrict any use of the information to criminally investigate or prosecute any alcohol or drug abuse patient.[facility] the event this information is protected by the Federal Confidentiality of Alcohol and Drug Abuse Patient Records regulations: The Federal rules restrict any use of the information to criminally investigate or prosecute any alcohol or drug abuse patient.[facility] Center[facility] the event this information is protected by the Federal Confidentiality of Alcohol and Drug Abuse Patient Records regulations: The Federal rules restrict any use of the information to criminally investigate or prosecute any alcohol or drug abuse patient.[facility] Center[facility] the event this information is protected by the Federal Confidentiality of Alcohol and Drug Abuse Patient Records regulations: The Federal rules restrict any use of the information to criminally investigate or prosecute any alcohol or drug abuse patient.[facility] Center[facility] the event this information is protected by the Federal Confidentiality of Alcohol and Drug Abuse Patient Records regulations: The Federal rules restrict any use of the information to criminally investigate or prosecute any alcohol or drug abuse patient.[facility] Center[facility] the event this information is protected by the Federal Confidentiality of Alcohol and Drug Abuse Patient Records regulations: The Federal rules restrict any use of the information to criminally investigate or prosecute any alcohol or drug abuse patient.[facility] Center[facility] the event this information is protected by the Federal Confidentiality of Alcohol and Drug Abuse Patient Records regulations: The Federal rules restrict any use of the information to criminally investigate or prosecute any alcohol or drug abuse patient.[facility] Center[facility] the event this information is protected by the Federal Confidentiality of Alcohol and Drug Abuse Patient Records regulations: The Federal rules restrict any use of the information to criminally investigate or prosecute any alcohol or drug abuse patient.[facility] Center[facility] the event this information is protected by the Federal Confidentiality of Alcohol and Drug Abuse Patient Records regulations: The Federal rules restrict any use of the information to criminally investigate or prosecute any alcohol or drug abuse patient.[facility] Center[facility] the event this information is protected by the Federal Confidentiality of Alcohol and Drug Abuse Patient Records regulations: The Federal rules restrict any use of the information to criminally investigate or prosecute any alcohol or drug abuse patient.[facility] Center[facility] the event this information is protected by the Federal Confidentiality of Alcohol and Drug Abuse Patient Records regulations: The Federal rules restrict any use of the information to criminally investigate or prosecute any alcohol or drug abuse patient.[facility] Center[facility] the event this information is protected by the Federal Confidentiality of Alcohol and Drug Abuse Patient Records regulations: The Federal rules restrict any use of the information to criminally investigate or prosecute any alcohol or drug abuse patient.[facility] CenterIn the event this information is protected by the Federal Confidentiality of Alcohol and Drug Abuse Patient Records regulations: The Federal rules restrict any use of the information to criminally investigate or prosecute any alcohol or drug abuse patient.[facility] CenterIn the event this information is protected by the Federal Confidentiality of Alcohol and Drug Abuse Patient Records regulations: The Federal rules restrict any use of the information to criminally investigate or prosecute any alcohol or drug abuse patient.[facility] CenterIn the event this information is protected by the Federal Confidentiality of Alcohol and Drug Abuse Patient Records regulations: The Federal rules restrict any use of the information to criminally investigate or prosecute any alcohol or drug abuse patient.[facility] Care Teams (unrecognized sec tion and content) Government Affairs Specialist Relationship Specialty Start Date End Date Pcp, No PCP - General 01/30/22 08/17/22 Government Affairs Specialist Relationship Specialty Start Date End Date Pcp, No PCP - General 01/30/22 08/17/22 Government Affairs Specialist Relationship Specialty Start Date End Date Jared Evans MD [address] [place] [address] PCP - General Family Medicine 05/18/22 Government Affairs Specialist Relationship Specialty Start Date End Date Jared Evans MD [address] [place] [address] PCP - General Family Medicine 05/18/22 Government Affairs Specialist Relationship Specialty Start Date End Date Jared Evans MD [address] [place] [address] PCP - General Family Medicine 05/18/22 Government Affairs Specialist Relationship Specialty Start Date End Date Jared Evans MD [address] [place] [address] PCP - General 03/06/20 Government Affairs Specialist Relationship Specialty Start Date End Date Jared Evans MD [address] [place] [address] PCP - General 03/06/20 Government Affairs Specialist Relationship Specialty Start Date End Date Jared Evans MD [address] [place] [address] PCP - General 03/06/20 Government Affairs Specialist Relationship Specialty Start Date End Date Jared Evans MD [address] [place] [address] PCP - General 03/06/20 Government Affairs Specialist Relationship Specialty Start Date End Date Jared Evans MD [address] [place] [address] PCP - General 03/06/20 Government Affairs Specialist Relationship Specialty Start Date End Date Jared Evans MD [address] [place] [address] PCP - General 03/06/20 Government Affairs Specialist Relationship Specialty Start Date End Date Jared Evans MD [address] [place] [address] PCP - General 03/06/20 Government Affairs Specialist Relationship Specialty Start Date End Date Jared Evans MD [address] [place] [address] PCP - General 03/06/20 Government Affairs Specialist Relationship Specialty Start Date End Date Jared Evans MD [address] [place] [address] PCP - General 03/06/20 Government Affairs Specialist Relationship Specialty Start Date End Date Jared Evans MD [address] [place] [address] PCP - General 03/06/20 Government Affairs Specialist Relationship Specialty Start Date End Date Jared Evans MD [address] [place] [address] PCP - General 03/06/20 Government Affairs Specialist Relationship Specialty Start Date End Date Jared Evans MD [address] [place] [address] PCP - General 03/06/20 Government Affairs Specialist Relationship Specialty Start Date End Date Jared Evans MD [address] [place] [address] PCP - General 03/06/20 Henok Hernandez PA-C [address] [place] [address] Physician Restoration Technician Physician Restoration Technician 04/19/24 Government Affairs Specialist Relationship Specialty Start Date End Date Jared Evans MD [address] [place] [address] PCP - General 03/06/20 Henok Hernandez PA-C [address] [place] [address] Physician Restoration Technician Physician Restoration Technician 04/19/24 Government Affairs Specialist Relationship Specialty Start Date End Date Jared Evans MD [address] [place] [address] PCP - General 03/06/20 Henok Hernandez PA-C [address] [place] [address] Physician Restoration Technician Physician 04/19/24 Government Affairs Specialist Relationship Specialty Start Date End Date Jared Evans MD [address] [place] [address] PCP - General 03/06/20 Henok Hernandez PA-C [address] [place] [address] Physician Restoration Technician Physician Restoration Technician 04/19/24 Government Affairs Specialist Relationship Specialty Start Date End Date Jared Evans MD [address] [place] [address] PCP - General 03/06/20 Henok Hernandez PA-C [address] [place] [address] Physician Restoration Technician Physician 04/19/24 Government Affairs Specialist Relationship Specialty Start Date End Date Jared Evans MD [address] [place] [address] PCP - General 03/06/20 Henok Lantigua PA-C [address] [address] Physician Restoration Technician Physician Restoration Technician 04/19/24 Government Affairs Specialist Relationship Specialty Start Date End Date Jared Evans MD [address] [place] [address] PCP - General 03/06/20 Henok Lantigua PA-C [address] [address] Physician Restoration Technician Physician Restoration Technician 04/19/24 Government Affairs Specialist Relationship Specialty Start Date End Date Jared Evans MD [address] [place] [address] PCP - General Family Medicine 05/18/22 Government Affairs Specialist Relationship Specialty Start Date End Date Jared Evans MD [address] [place] [address] PCP - General Family Medicine 05/18/22 Government Affairs Specialist Relationship Specialty Start Date End Date Jared Evans MD [address] [place] [address] PCP - General 03/06/20 Henok Lantigua PA-C [address] [address] Physician Restoration Technician Physician Restoration Technician 04/19/24 Government Affairs Specialist Relationship Specialty Start Date End Date Jared Evasn MD [address] [place] [address] PCP - General Family Medicine 05/18/22 Government Affairs Specialist Relationship Specialty Start Date End Date Jared Evans MD [address] [place] [address] PCP - General Family Medicine 05/18/22 Government Affairs Specialist Relationship Specialty Start Date End Date Jared Evans MD [address] [place] [address] PCP - General Family Medicine 05/18/22 Government Affairs Specialist Relationship Specialty Start Date End Date Jared Evans MD [address] [place] [address] PCP - General Family Medicine 05/18/22 Government Affairs Specialist Relationship Specialty Start Date End Date Jared Evans MD [address] [place] [address] PCP - General Family Medicine 05/18/22 Government Affairs Specialist Relationship Specialty Start Date End Date Jared Evans MD [address] [place] [address] PCP - General 03/06/20 Henok Lantigua PA-C [address] [place] [address] Physician Restoration Technician Physician Restoration Technician 04/19/24 Government Affairs Specialist Relationship Specialty Start Date End Date Jared Evans MD [address] [place] [address] PCP - General Family Medicine 05/18/22 Government Affairs Specialist Relationship Specialty Start Date End Date Jared Evans MD [address] [place] [address] PCP - General Family Medicine 05/18/22 Government Affairs Specialist Relationship Specialty Start Date End Date Jared Evans MD [address] [place] [address] PCP - General Family Medicine 05/18/22 Government Affairs Specialist Relationship Specialty Start Date End Date Jared Evans MD [address] [place] [address] PCP - General 03/06/20 Henok Lantigua PA-C [address] [address] Physician Restoration Technician Physician Restoration Technician 04/19/24 Government Affairs Specialist Relationship Specialty Start Date End Date Jared Evans MD [address] [place] [address] PCP - General 03/06/20 Henok Lantigua PA-C [address] [address] Physician Restoration Technician Physician Restoration Technician 04/19/24 Government Affairs Specialist Relationship Specialty Start Date End Date Jared Evans MD [address] [facility] [place] [address] PCP - General 03/06/20 Henok Lantigua PA-C [address] [address] Physician Restoration Technician Physician Restoration Technician 04/19/24 [place] [address] [facility] 08/22/24 Government Affairs Specialist Relationship Specialty Start Date End Date Jared Evans MD [address] [place] [address] PCP - General Family Medicine 05/18/22 Government Affairs Specialist Relationship Specialty Start Date End Date Jared Evans MD [address] [place], [place] [id number] PCP - General Family Medicine 05/18/22 Team [...] October 08, 2024 End: October 08, 2024 Government Affairs Specialist Relationship Specialty Start Date End Date Jared Evans MD [address] [place] [address] PCP - General 03/06/20 Henok Lantigua PA-C [address] [address] Physician Restoration Technician Physician Restoration Technician 04/19/24 [facility] [address] [place] [address] [facility] 08/22/24 Government Affairs Specialist Relationship Specialty Start Date End Date Jared Evans MD [address] [facility] [place] [place] [address] PCP - General 03/06/20 Henok Lantigua PA-C [address] [address] Physician Restoration Technician Physician Restoration Technician 04/19/24 [facility] [address] [place] [address] [facility] 08/22/24 Government Affairs Specialist Relationship Specialty Start Date End Date Jared Evans MD [address] [facility] [place] [address] PCP - General 03/06/20 Henok Lantigua PA-C [address] [place] [address] Physician Restoration Technician Physician Restoration Technician 04/19/24 [facility] [address] [place], [place] [address] [facility] 08/22/24 Government Affairs Specialist Relationship Specialty Start Date End Date Jared Evans MD [address] [facility] [place] [address] PCP - General 03/06/20 Henok Lantigua PA-C [address] [place] [address] Physician Restoration Technician Physician Restoration Technician 04/19/24 [facility] [address] [place] [address] [facility] Facility 08/22/24 Government Affairs Specialist Relationship Specialty Start Date End Date Jared Evans MD [address] [place] [address] PCP - General 03/06/20 Henok Lantigua PA-C [address] [address] Physician Restoration Technician Physician Restoration Technician 04/19/24 [facility] [address] [place] [address] [facility] Facility 08/22/24 Government Affairs Specialist Relationship Specialty Start Date End Date Megan Montoya [facility] [place] [phone] PCP - General Internal Medicine 12/13/24 Henok Lantigua PA-C [address] [place] [address] Physician Restoration Technician Physician Restoration Technician 04/19/24 [facility] [address] [place] [address] [facility] Facility 08/22/24 Government Affairs Specialist Relationship Specialty Start Date End Date Megan Montoya [address] [place] [phone] PCP - General Internal Medicine 12/13/24 Henok Lantigua PA-C [address] [place] [address] Physician Restoration Technician Physician Restoration Technician 04/19/24 Kristyn Blankenship MD [address] [place] [address] Consulting Physician Vascular Surgery 12/24/[address] [address] [facility] Facility 08/22/24 Government Affairs Specialist Relationship Specialty Start Date End Date Jared Evans MD [address] [place] [address] PCP - General Family Medicine 05/18/22 Government Affairs Specialist Relationship Specialty Start Date End Date Jared Evans MD [address] [place] [address] PCP - General Family Medicine 05/18/22 Government Affairs Specialist Relationship Specialty Start Date End Date Megan Montoya [address] [place] [phone] PCP - General Internal Medicine 12/13/24 Henok Lantigua PA-C [address] [place] [address] Physician Restoration Technician Physician Restoration Technician 04/19/24 Kristyn Blankenship MD [address] [place] [address] Consulting Physician Vascular Surgery 12/24/24 [facility] [address] [place] [address] [facility] Facility 08/22/24 Government Affairs Specialist Relationship Specialty Start Date End Date Megan Montoya [address] [place] [address] PCP - General Internal Medicine 12/13/24 Henok Lantigua PA-C [address] [facility] [address] [place] [address] Physician Restoration Technician Physician Restoration Technician 04/19/24 Kristyn Blankenship MD [address] [place] [address] Consulting Physician Vascular Surgery 12/24/24 Andre Patel MD [address] [facility] [address] [place] [address] Consulting Physician Hematology and Oncology 03/15/25 [facility] [address] [place] [address] [facility] Facility 08/22/24 Scheduled Active and Recently [...] sedation for opioid reversal - MUST notify information technology security analyst provider immediately after first dose, may give [...] 1 dose 0517 (Given - Provider: Arin Jmaa, RADHA) lisinopril tablet 40 mg 40 mg, [...] Cecilia Lopes, RADHA)1627 (Given - Provider: Cecilia Lopse RN)2106 (Given - Provider: Luis Murry RN) [...] Cici Perez RN)1806 (Given - Provider: Cici Perze RN)2140 (Given - Provider: Jessica Bailey RN) [...] OR irrigation (CANCELED) As needed, Starting on Amida 11/22/24 at 0952, Intraprocedure 0952 (Given - [...] BE BASED ON THE PRIMARY CLINICAL RECORDS. [facility] [employer] [facility]. provides no warranty or guarantee of the accuracy or completeness of information in this document.
[2025-06-07 07:44] LABS: INR Fingerstick 2.3
== END ==
LOC: OLS.SANC 05:00
PROVIDERS: Visit Provider Internal Medicine
DX: Z79.01 Long term (current) use of anticoagulants (principal)
CPT/HCPCS: 36416; 85610

== ENCOUNTER → 2025-07-04 05:00 | Outpatient (REF) | payer MEDICARE, SELFPAY ==
--- OUTSIDE RECORDS SUMMARY | 2025-07-04 03:54 | XMS RPT_ITS | CCD ---
Author Organization [facility] Care Team Providers Care Manager Ed Name Role Phone Maryuri King Primary Care Provider Jared Evans Primary Care Provider [phone] Pcp, No Primary Care Provider UnavailJared Mckinnon MD Primary Care Provider BERNIE BIRD Admitting Unavailable IWONA CHU Attending Unavailable MING OLSON Consulting Unavailable SIM ELIZABETH Attending Unavailable PRIMO DODD Referring Unavailable Jared Evans MD Primary Care Provider Jared Evans MD Primary Care Provider [phone] Henok Hernandez PA-C Unavailable [phone] Henok Lantigua PA-C Unavailable Jared Evans MD Primary Care Provider SYSTEM, PROVIDER NOT IN Referring Unavaila Megan Rice Attending Provider Unavailab Megan Porras Referring Provider Unavailab Megan Porras Attending Provider Unavailab Megan Porras Referring Provider Unavailab TORSTEN Hernandez Consulting Unavailable JARED EVANS Primary Care Unavailable FELICIA COREAS Admitting Unavailable DON EDWARDS Attending Unavailable Megan Montoya Primary Care Provider [phone] Krzysztof BROWNE, Kristyn Unavailable [phone] RED HENDERSON Referring Unavail able JARED [...] Primary Care Unavailable SELF Referring Unavailable EVANS, TULSA N Primary Care Unavailable SELF Referring Unavailable EVANS, TULSA N Primary Care Unavailable MAMMO, SAVANA A Attending Unavailable MAMMO, SAVANA A Referring Unavailable EVANS, JARED N Primary Care Unavailable SELF Referring Unavailable EVANS, JARED N Primary Care Unavailable Darlyn FELIZ, Henok Unavailable [phone] Amanda Berry MD, Greg Unavailable DEVIN, [...] Facility (20 sources) Amoxicillin Drug Allergy 0 [place], [place] (20 sources) fluticasone / salmeterol Drug Allergy 0 Intolerance [place], [place] (20 sources) Acetaminophen / oxyCODONE; Translations: [OXYCODONE-ACETAM INOPHEN] Drug Allergy 2 Itching [facility] Repository (9 sources) Ampicillin; Translations: [AMPICILLIN] Drug Allergy [address] [facility] (13 sources) Amoxicillin-Pot Clavulanate Drug Allergy 5 [facility] (1 source) FLUTICASONE PROPION-SALMETERO L; Translations: [FLUTICASONE PROPION-SALMETERO L] Propensity to adverse reactions to drug (disorder) 0 [facility] Repository Medications Current Medications Medication [...] Comment on above: Take 1 tablet by [facility] every 8 hours as needed for pain for up to 3 days. [id number] 200 actuat albuterol 0.09 mg/actuat metered dose [...] the event of a Fluress shortage, administer [place]-Fluor 1 drop into both eyes as directed for applanation tonometry, [facility]INIC MED ORDERS Start: 07-12-2024 End: 07-12-2024 fluorescein-benoxinate 0.3-0 .4 % 1 Drop (FLURESS) bisacodyl 5 mg delayed release oral tablet (4 sources) Stimulant Laxative bisacodyl (Du lcolax) 10 MG suppository Insert into the rectum Daily as needed for constipation. Active take 1 tablet by [facility] every twenty-four hours as needed for [...] Comment on above: Take 2 tablets by [facility] every 12 hours for 3 days, THEN [...] Comment on above: Take 1 tablet by [facility] every 12 hours for 7 [...] for dry skin. Active lactobacillus rhamnosus gg [id number] unt oral capsule (2 sources) Start: 06-29-20 End: 07-29-19 take 1 capsule by mouth once daily lactobacillus rhamnosus (CULTURELLE) 10 billion cell capsule Take 1 capsule by mouth once daily. 30 capsule 0 06/29/2022 07/29/2022 Active Comment on above: Take 1 capsule by [facility] once daily. lidocaine 0.04 mg/mg medicated patch [...] 0059, Administer for dilation PROTECT FROM LIGHT, [facility] Start: 07-16-2024 End: 07-16-2024 PHENYLephrine 2.5 % 1 Drop ( AK-DILATE, KEL-SYNEPHRINE) Start: 07-16-2024 End: 07-16-2024 1 Drop, RIGHT EYE, DIRECT ED, Starting on Tue07/16/24 at 0900, Until Tue07/16/24 at 2059, Administer for dilation PROTECT FROM LIGHT Start: 07-09-2024 End: 07-09-2024 PHENYLephrine 2.5 % 1 Drop ( AK-DILATE, KEL-SYNEPHRINE) polyethylene glycol 3350 28170 mg powder for oral solution (11 sources) [...] lower extremity (HCC) Take as directed by [facility] Anticoagulation [facility] (90 tablets = 90 [...] lower extremity (HCC) Take as directed by [facility] Anticoagulation Clinic (45 tablets= 30 day supply) 45 tablet 1 04/27/2024 Active Start: 04-09-2024 7.5 mg, Oral, Once Warfarin, On Maida 04/12/24 at 1700, For 1 dose Start: 04-07-2024 warfarin (Coum jay jay) 5 MG tablet Take 1 tablet (5mg) on 04/13 in the evening Take 1.5 tablets (7.5mg) on 04/14 Take 1 tablet (5mg) on 04/15 Follow up with [facility] pharmacy for further dosing 30 tablet [...] sodium chloride 0.9 % 100 mL IVPB (Add-Effingham) (2 sources) Start: End: take 3000 mg intravenously every six hours 3,000 mg, IntraVENous, at 200 mL/hr, Administer over 30 Minutes, Every 6 hours, First dose on Tue08/03/24 at 1200, For 18 doses, ADD-Effingham bag, Suspected Indication (Select all that apply): [...] Anesthetic Start: 03-07-2020 End: 03-07-2020 lidocaine-EPINEPHrine 1 percent-1:[id number] injection 8 mL ergocalciferol 1.25 mg oral capsule (3 sources) Provitamin D2 Compound End: 07-05-2024 take 1 capsule by mouth every week ergocalciferol (Vitamin D2) 1.25 MG (77764 UT) capsule Take 1.25 mg by mouth [...] Comment on above: Take 1 tablet by [facility] twice daily before meals (0600/1600). 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 anticoagulants; Translations: [senior care [...] Long-term current use of anticoagulant; Translations: [senior care (current) use of anticoagulants] Onset: 0 03-07-2020 Episodic Other aftercare (2 sources) Encounter for surgical aftercare following surgery on the circulatory system; Translations: [Encounter for surgical aftercare following surgery on the circulatory system] Onset: 5 Episodic Other aftercare (1 source) Other terminal block assembler (current) drug therapy; Translations: [Other fci (current) drug therapy] Onset: 5 Episodic Other [...] right foot, limited to breakdown of skin ([facility]) 12-05-2024 Unclassified (4 sources) PAD (peripheral artery disease) ([facility]) 12-05-2024 Viral infection (20 sources) Disease caused by 2019-nCoV; Translations: [COVID-19] Onset: 2 06-16-2022 Episodic Results Test Name Value Interpretation Reference Range Facility Protime w/INR Fingerstickon 05-27-2025 INR Coag (PPP) [Relative time] 2.0 {INR} Normal [facility] Comment on above: Result Comment: Crit ical Value > 4.0 Performed By: #### L 300.3900 #### [facility] [address] [place], [place], [id number] Protime Coagsen 22.2 SEC High 11.7-14.9 [facility] Comment on above: Performed By: #### L 300.3900 #### [facility] [address] [place], [address] Prothrombin Time w/INRon INR Coag (PPP) [Relative time] 2.0 {INR} Normal [facility] Comment on above: Order Comment: 104-1 Performed By: #### L 9200.0000 #### [facility] [address] [place], [address] PT Coag (PPP) [Time] 23.2 s High 11.7-14.9 [facility] Comment on above: Order Comment: 104-1 Performed By: #### L 9200.0000 #### [facility] [address] [place], [address] Protime w/INR Fingerstickon 05-09-2025 INR Coag (PPP) [Relative time] 2.4 {INR} Normal [facility] Comment on above: Result Comment: Crit ical Value > 4.0 Performed By: #### L 300.3900 #### [facility] [address] [place], [address] Protime Coagsen 25.6 SEC High 11.7-14.9 [facility] Comment on above: Performed By: #### L 300.3900 #### [facility] [address] [place], [address] Prothrombin Time w/INRon INR Coag (PPP) [Relative time] 4.8 {INR} Invalid Interpretation Code [facility] Comment on above: Order Comment: 104-1 Performed By: #### L 300.3900 #### [facility] [address] [place], [address] PT Coag (PPP) [Time] 46.2 s High 11.7-14.9 [facility] Comment on above: Order Comment: 104-1 Performed By: #### L 300.3900 #### [facility] [address] [place], [address] Protime w/INR Fingerstickon 05-06-2025 INR Coag (PPP) [Relative time] 5.5 {INR} Invalid Interpretation Code [facility] Comment on above: Result Comment: Crit ical Value > 4.0 Performed By: #### L 9200.0000 #### [facility] [address] [place], [address] Protime [place]agsen 53.4 SEC High 11.7-14.9 [facility] Comment on above: Performed By: #### L 9200.0000 #### [facility] [address] [place], [address] Prothrombin Time w/INRon INR Coag (PPP) [Relative time] 3.9 {INR} Normal [facility] Comment on above: Order Comment: 104-1 Performed By: #### L 300.3900 #### [facility] [address] [place], [address] PT Coag (PPP) [Time] 39.5 s High 11.7-14.9 [facility] Comment on above: Order Comment: 104-1 Performed By: #### L 300.3900 #### [facility] [address] [place], [address] Protime w/INR Fingerstickon 04-29-2025 INR Coag (PPP) [Relative time] 4.1 {INR} Invalid Interpretation Code [facility] Comment on above: Result Comment: Crit ical Value > 4.0 Performed By: #### L 300.3900 #### [facility] [address] [place], [address] Protime Coagsen 41.7 SEC High 11.7-14.9 [facility] Comment on above: Performed By: #### L 300.3900 #### [facility] [address] [place], [address] Basic Metabolic Profile (BMP )on 04-04-2025 BUN/CRE 19.9 RATIO Normal 10-20 [facility] Comment on above: Order Comment: 104-1 Performed By: #### L 300.3900 #### [facility] [address] [place], [address] Calcium [Mass/Vol] 8.9 mg/dL Normal 7.6-11.0 [facility] Comment on above: Order Comment: 104-1 Performed By: #### L 300.3900 #### [facility] [address] [place], [address] Chloride [Moles/Vol] 109 mmol/L High 98-108 [facility] Comment on above: Order Comment: 104-1 Performed By: #### L 300.3900 #### [facility] [address] [place], [address] CO2 [Moles/Vol] 20.4 mmol/L Low 21.0-32.0 [facility] Comment on above: Order Comment: 104-1 Performed By: #### L 300.3900 #### [facility] [address] [place], [address] Creatinine [Mass/Vol] 0.98 mg/dL Normal 0.70-1.20 [facility] Comment on above: Order Comment: 104-1 Performed By: #### L 300.3900 #### [facility] [address] [place], [address] GAP 10 Normal 5-15 [facility] Comment on above: Order Comment: 104-1 Performed By: #### L 300.3900 #### [facility] [address] [place], [address] GFR/1.73 sq M.predicted among non-blacks MDRD (S/P/Bld) [Vol rate/Area] 56 mL/min/{1.73_m2} Low >60 [facility] Comment on above: Order Comment: 104-1 Result Comment: mL/m in/1.73m2 CKD-EPI Creatinine Equation (2020) Performed By: #### L 300.3900 #### [facility] [address] [place], [address] Glucose [Mass/Vol] 87 mg/dL Normal 70-99 [facility] Comment on above: Order Comment: 104-1 Performed By: #### L 300.3900 #### [facility] [address] [place], [address] Potassium [Moles/Vol] 5.0 mmol/L Normal 3.3-5.1 [facility] Comment on above: Order Comment: 104-1 Performed By: #### L 300.3900 #### [facility] [address] [place], [address] Sodium [Moles/Vol] 139 mmol/L Normal 133-145 [facility] Comment on above: Order Comment: 104-1 Performed By: #### L 300.3900 #### [facility] [address] [place], [address] Urea nitrogen [Mass/Vol] 20 mg/dL High 4-19 [facility] Comment on above: Order Comment: 104-1 Performed By: #### L 300.3900 #### [facility] [address] [place], [address] CBC-Complete Blood Cnt No Di ffon 04-04-2025 Erythrocyte distribution width (RBC) [Ratio] 13.6 % Normal 11.6-14.6 [facility] Comment on above: Order Comment: 104-1 Performed By: #### L 300.3900 #### [facility] [address] [place], [address] Hematocrit (Bld) [Volume fraction] 32.6 % Low 37-47 [facility] Comment on above: Order Comment: 104-1 Performed By: #### L 300.3900 #### [facility] [address] [place], [address] Hemoglobin (Bld) [Mass/Vol] 10.7 g/dL Low 12.0-15.0 [facility] Comment on above: Order Comment: 104-1 Performed By: #### L 300.3900 #### [facility] [address] [place], [address] MCH (RBC) [Entitic mass] 30.0 pg Normal 27.0-32.0 [facility] Comment on above: Order Comment: 104-1 Performed By: #### L 300.3900 #### [facility] [address] [place], [address] MCHC (RBC) [Mass/Vol] 32.8 g/dL Normal 32-36 [facility] Comment on above: Order Comment: 104-1 Performed By: #### L 300.3900 #### [facility] [address] [place], [address] MCV (RBC) [Entitic vol] 91.3 fL Normal 81-99 [facility] Comment on above: Order Comment: 104-1 Performed By: #### L 300.3900 #### [facility] [address] [place], [address] Platelet mean volume (Bld) [Entitic vol] 9.8 fL Normal 6.2-12.0 [facility] Comment on above: Order Comment: 104-1 Performed By: #### L 300.3900 #### [facility] [address] [place], [address] Platelets (Bld) [#/Vol] 259 10*3/uL Normal 150-450 [facility] Comment on above: Order Comment: 104-1 Performed By: #### L 300.3900 #### [facility] [address] [place], [address] RBC (Bld) [#/Vol] 3.57 10*6/uL Low 4.2-5.4 [facility] Comment on above: Order Comment: 104-1 Performed By: #### L 300.3900 #### [facility] [address] [place], [address] RDW SD 46.1 fl High 35.1-43.9 [facility] Comment on above: Order Comment: 104-1 Performed By: #### L 300.3900 #### [facility] [address] [place], [address] WBC (Bld) [#/Vol] 4.2 10*3/uL Low 4.4-11.0 [facility] Comment on above: Order Comment: 104-1 Performed By: #### L 300.3900 #### [facility] [address] [place], [address] Potassiumon 04-02-2025 Potassium [Moles/Vol] 5.3 mmol/L High 3.3-5.1 [facility] Comment on above: Order Comment: 104-1 Performed By: #### L 300.3900 #### [facility] [address] [place], [address] Basic Metabolic Profile (BMP )on 03-28-2025 BUN/CRE 17.4 RATIO Normal 10-20 [facility] Comment on above: Order Comment: 104.1 Performed By: #### L 9200.0000 #### [facility] [address] [place], [address] Calcium [Mass/Vol] 9.0 mg/dL Normal 7.6-11.0 [facility] Comment on above: Order Comment: 104.1 Performed By: #### L 9200.0000 #### [facility] [address] [place], [address] Chloride [Moles/Vol] 108 mmol/L Normal 98-108 [facility] Comment on above: Order Comment: 104.1 Performed By: #### L 9200.0000 #### [facility] [address] [place], [address] CO2 [Moles/Vol] 21.1 mmol/L Normal 21.0-32.0 [facility] Comment on above: Order Comment: 104.1 Performed By: #### L 9200.0000 #### [facility] [address] [place], [address] Creatinine [Mass/Vol] 0.99 mg/dL Normal 0.70-1.20 [facility] Comment on above: Order Comment: 104.1 Performed By: #### L 9200.0000 #### [facility] [address] [place], [address] GAP 9 Normal 5-15 [facility] Comment on above: Order Comment: 104.1 Performed By: #### L 9200.0000 #### [facility] [address] [place], [address] GFR/1.73 sq M.predicted among non-blacks MDRD (S/P/Bld) [Vol rate/Area] 56 mL/min/{1.73_m2} Low >60 [facility] Comment on above: Order Comment: 104.1 Result Comment: mL/m in/1.73m2 CKD-EPI Creatinine Equation (2020) Performed By: #### L 9200.0000 #### [facility] [address] [place], [address] Glucose [Mass/Vol] 88 mg/dL Normal 70-99 [facility] Comment on above: Order Comment: 104.1 Performed By: #### L 9200.0000 #### [facility] [address] [place], [address] Potassium [Moles/Vol] 5.2 mmol/L High 3.3-5.1 [facility] Comment on above: Order Comment: 104.1 Performed By: #### L 9200.0000 #### [facility] [address] [place], [address] Sodium [Moles/Vol] 138 mmol/L Normal 133-145 [facility] Comment on above: Order Comment: 104.1 Performed By: #### L 9200.0000 #### [facility] [address] [place], [address] Urea nitrogen [Mass/Vol] 17 mg/dL Normal 4-19 [facility] Comment on above: Order Comment: 104.1 Performed By: #### L 9200.0000 #### [facility] [address] [place], [address] CBC-Complete Blood Cnt No Di ffon 03-28-2025 Erythrocyte distribution width (RBC) [Ratio] 13.7 % Normal 11.6-14.6 [facility] Comment on above: Order Comment: 104.1 Performed By: #### L 9200.0000 #### [facility] [address] [place], [address] Hematocrit (Bld) [Volume fraction] 31.6 % Low 37-47 [facility] Comment on above: Order Comment: 104.1 Performed By: #### L 9200.0000 #### [facility] [address] [place], [address] Hemoglobin (Bld) [Mass/Vol] 10.3 g/dL Low 12.0-15.0 [facility] Comment on above: Order Comment: 104.1 Performed By: #### L 9200.0000 #### [facility] [address] [place], [address] MCH (RBC) [Entitic mass] 29.7 pg Normal 27.0-32.0 [facility] Comment on above: Order Comment: 104.1 Performed By: #### L 9200.0000 #### [facility] [address] [place], [address] MCHC (RBC) [Mass/Vol] 32.6 g/dL Normal 32-36 [facility] Comment on above: Order Comment: 104.1 Performed By: #### L 9200.0000 #### [facility] [address] [place], [address] MCV (RBC) [Entitic vol] 91.1 fL Normal 81-99 [facility] Comment on above: Order Comment: 104.1 Performed By: #### L 9200.0000 #### [facility] [address] [place], [address] Platelet mean volume (Bld) [Entitic vol] 10.0 fL Normal 6.2-12.0 [facility] Comment on above: Order Comment: 104.1 Performed By: #### L 9200.0000 #### [facility] [address] [place], [address] Platelets (Bld) [#/Vol] 265 10*3/uL Normal 150-450 [facility] Comment on above: Order Comment: 104.1 Performed By: #### L 9200.0000 #### [facility] [address] [place], [address] RBC (Bld) [#/Vol] 3.47 10*6/uL Low 4.2-5.4 [facility] Comment on above: Order Comment: 104.1 Performed By: #### L 9200.0000 #### [facility] [address] [place], [address] RDW SD 45.8 fl High 35.1-43.9 [facility] Comment on above: Order Comment: 104.1 Performed By: #### L 9200.0000 #### [facility] [address] [place], [address] WBC (Bld) [#/Vol] 5.3 10*3/uL Normal 4.4-11.0 [facility] Comment on above: Order Comment: 104.1 Performed By: #### L 9200.0000 #### [facility] [address] [place], [address] Prothrombin Time w/INRon INR Coag (PPP) [Relative time] 2.2 {INR} Normal [facility] Comment on above: Order Comment: 104.1 Performed By: #### L 9200.0000 #### [facility] [address] [place], [address] PT Coag (PPP) [Time] 24.5 s High 11.7-14.9 [facility] Comment on above: Order Comment: 104.1 Performed By: #### L 9200.0000 #### [facility] [address] [place], [address] Progress Noteon 03-15-2025 Progress Note Normal [facility] Protime w/INR Fingerstickon 03-04-2025 INR Coag (PPP) [Relative time] 2.3 {INR} Normal [facility] Comment on above: Result Comment: Crit ical Value > 4.0 Performed By: #### L 9200.0000 #### [facility] [address] [place], [address] Protime Coagsen 24.7 SEC High 11.7-14.9 [facility] Comment on above: Performed By: #### L 9200.0000 #### [facility] [address] [place], [address] 36on 02-27-2025 36 Letter mailed to patient [facility] 36on 02-26-2025 36 Normal [facility] Protime w/INR Fingerstickon 02-25-2025 INR Coag (PPP) [Relative time] 2.1 {INR} Normal [facility] Comment on above: Result Comment: Crit ical Value > 4.0 Performed By: #### L 9200.0000 #### [facility] [address] [place], [address] Protime Coagsen 23.3 SEC High 11.7-14.9 [facility] Comment on above: Performed By: #### L 9200.0000 #### [facility] [address] [place], [address] Basic Metabolic Profile (BMP )on 02-18-2025 BUN/CRE 22.7 RATIO High 10-20 [facility] Comment on above: Performed By: #### L 9200.0000 #### [facility] [address] [place], [address] Calcium [Mass/Vol] 9.2 mg/dL Normal 7.6-11.0 [facility] Comment on above: Performed By: #### L 9200.0000 #### [facility] [address] [place], [address] Chloride [Moles/Vol] 108 mmol/L Normal 98-108 [facility] Comment on above: Performed By: #### L 9200.0000 #### [facility] [address] [place], [address] CO2 [Moles/Vol] 21.6 mmol/L Normal 21.0-32.0 [facility] Comment on above: Performed By: #### L 9200.0000 #### [facility] [address] [place], [address] Creatinine [Mass/Vol] 1.03 mg/dL Normal 0.70-1.20 [facility] Comment on above: Performed By: #### L 9200.0000 #### [facility] [address] [place], [address] GAP 9 Normal 5-15 [facility] Comment on above: Performed By: #### L 9200.0000 #### [facility] [address] [place], [address] GFR/1.73 sq M.predicted among non-blacks MDRD (S/P/Bld) [Vol rate/Area] 53 mL/min/{1.73_m2} Low >60 [facility] Comment on above: Result Comment: mL/m in/1.73m2 CKD-EPI Creatinine Equation (2020) Performed By: #### L 9200.0000 #### [facility] [address] [place], [address] Glucose [Mass/Vol] 91 mg/dL Normal 70-99 [facility] Comment on above: Performed By: #### L 9200.0000 #### [facility] [address] [place], [address] Potassium [Moles/Vol] 5.2 mmol/L High 3.3-5.1 [facility] Comment on above: Performed By: #### L 9200.0000 #### [facility] [address] [place], [address] Sodium [Moles/Vol] 138 mmol/L Normal 133-145 [facility] Comment on above: Performed By: #### L 9200.0000 #### [facility] [address] [place], [address] Urea nitrogen [Mass/Vol] 23 mg/dL High 4-19 [facility] Comment on above: Performed By: #### L 9200.0000 #### [facility] [address] [place], [address] CBC-Complete Blood Cnt No Di ffon 02-18-2025 Erythrocyte distribution width (RBC) [Ratio] 14.0 % Normal 11.6-14.6 [facility] Comment on above: Performed By: #### L 9200.0000 #### [facility] [address] [place], [address] Hematocrit (Bld) [Volume fraction] 31.6 % Low 37-47 [facility] Comment on above: Performed By: #### L 9200.0000 #### [facility] [address] [place], [address] Hemoglobin (Bld) [Mass/Vol] 10.2 g/dL Low 12.0-15.0 [facility] Comment on above: Performed By: #### L 9200.0000 #### [facility] [address] [place], [address] MCH (RBC) [Entitic mass] 30.0 pg Normal 27.0-32.0 [facility] Comment on above: Performed By: #### L 9200.0000 #### [facility] [address] [place], [address] MCHC (RBC) [Mass/Vol] 32.3 g/dL Normal 32-36 [facility] Comment on above: Performed By: #### L 9200.0000 #### [facility] [address] [place], [address] MCV (RBC) [Entitic vol] 92.9 fL Normal 81-99 [facility] Comment on above: Performed By: #### L 9200.0000 #### [facility] [address] [place], [address] Platelet mean volume (Bld) [Entitic vol] 9.9 fL Normal 6.2-12.0 [facility] Comment on above: Performed By: #### L 9200.0000 #### [facility] [address] [place], [address] Platelets (Bld) [#/Vol] 257 10*3/uL Normal 150-450 [facility] Comment on above: Performed By: #### L 9200.0000 #### [facility] [address] [place], [address] RBC (Bld) [#/Vol] 3.40 10*6/uL Low 4.2-5.4 [facility] Comment on above: Performed By: #### L 9200.0000 #### [facility] [address] [place], [address] RDW SD 47.2 fl High 35.1-43.9 [facility] Comment on above: Performed By: #### L 9200.0000 #### [facility] [address] [place], [address] WBC (Bld) [#/Vol] 4.3 10*3/uL Low 4.4-11.0 [facility] Comment on above: Performed By: #### L 9200.0000 #### [facility] [address] [place], [address] Prothrombin Time w/INRon INR Coag (PPP) [Relative time] 2.5 {INR} Normal [facility] Comment on above: Performed By: #### L 9200.0000 #### [facility] [address] [place], [address] PT Coag (PPP) [Time] 27.6 s High 11.7-14.9 [facility] Comment on above: Performed By: #### L 9200.0000 #### [facility] [address] [place], [address] Basic Metabolic Profile (BMP )on 02-15-2025 BUN/CRE 18.4 RATIO Normal 10-20 [facility] Comment on above: Order Comment: 104.1 Performed By: #### L 9200.0000 #### [facility] [address] [place], [address] Calcium [Mass/Vol] 9.4 mg/dL Normal 7.6-11.0 [facility] Comment on above: Order Comment: 104.1 Performed By: #### L 9200.0000 #### [facility] [address] [place], [address] Chloride [Moles/Vol] 107 mmol/L Normal 98-108 [facility] Comment on above: Order Comment: 104.1 Performed By: #### L 9200.0000 #### [facility] [address] [place], [address] CO2 [Moles/Vol] 16.1 mmol/L Low 21.0-32.0 [facility] Comment on above: Order Comment: 104.1 Performed By: #### L 9200.0000 #### [facility] [address] [place], [address] Creatinine [Mass/Vol] 1.12 mg/dL Normal 0.70-1.20 [facility] Comment on above: Order Comment: 104.1 Performed By: #### L 9200.0000 #### [facility] [address] [place], [address] GAP 11 Normal 5-15 [facility] Comment on above: Order Comment: 104.1 Performed By: #### L 9200.0000 #### [facility] [address] [place], [address] GFR/1.73 sq M.predicted among non-blacks MDRD (S/P/Bld) [Vol rate/Area] 48 mL/min/{1.73_m2} Low >60 [facility] Comment on above: Order Comment: 104.1 Result Comment: mL/m in/1.73m2 CKD-EPI Creatinine Equation (2020) Performed By: #### L 9200.0000 #### [facility] [address] [place], [address] Glucose [Mass/Vol] 90 mg/dL Normal 70-99 [facility] Comment on above: Order Comment: 104.1 Performed By: #### L 9200.0000 #### [facility] [address] [place], [address] Potassium [Moles/Vol] 6.1 mmol/L Invalid Interpretation Code 3.3-5.1 [facility] Comment on above: Order Comment: 104.1 Result Comment: Crit ical result called 02/15/2025-09:30 by Cirilo Bird to Shannen Christianson. Hemolysis present, Results??could be affected. ?? Critical Result(s) Called at: by:??Results read back by same. Performed By: #### L 9200.0000 #### [facility] [address] [place], [address] Sodium [Moles/Vol] 134 mmol/L Normal 133-145 [facility] Comment on above: Order Comment: 104.1 Performed By: #### L 9200.0000 #### [facility] [address] [place], [address] Urea nitrogen [Mass/Vol] 21 mg/dL High 4-19 [facility] Comment on above: Order Comment: 104.1 Performed By: #### L 9200.0000 #### [facility] [address] [place], [address] CBC-Complete Blood Cnt No Di ffon 02-15-2025 Erythrocyte distribution width (RBC) [Ratio] 13.8 % Normal 11.6-14.6 [facility] Comment on above: Order Comment: 104.1 Performed By: #### L 500.2500, L100.0500 #### [facility] [address] [place], [address] Hematocrit (Bld) [Volume fraction] 34.2 % Low 37-47 [facility] Comment on above: Order Comment: 104.1 Performed By: #### L 500.2500, L100.0500 #### [facility] [address] [place], [address] Hemoglobin (Bld) [Mass/Vol] 10.8 g/dL Low 12.0-15.0 [facility] Comment on above: Order Comment: 104.1 Performed By: #### L 500.2500, L100.0500 #### [facility] [address] [place], [address] MCH (RBC) [Entitic mass] 30.4 pg Normal 27.0-32.0 [facility] Comment on above: Order Comment: 104.1 Performed By: #### L 500.2500, L100.0500 #### [facility] [address] [place], [address] MCHC (RBC) [Mass/Vol] 31.6 g/dL Low 32-36 [facility] Comment on above: Order Comment: 104.1 Performed By: #### L 500.2500, L100.0500 #### [facility] [address] [place], [address] MCV (RBC) [Entitic vol] 96.3 fL Normal 81-99 [facility] Comment on above: Order Comment: 104.1 Performed By: #### L 500.2500, L100.0500 #### [facility] [address] [place], [address] Platelet mean volume (Bld) [Entitic vol] 10.4 fL Normal 6.2-12.0 [facility] Comment on above: Order Comment: 104.1 Performed By: #### L 500.2500, L100.0500 #### [facility] [address] [place], [address] Platelets (Bld) [#/Vol] 239 10*3/uL Normal 150-450 [facility] Comment on above: Order Comment: 104.1 Performed By: #### L 500.2500, L100.0500 #### [facility] [address] [place], [address] RBC (Bld) [#/Vol] 3.55 10*6/uL Low 4.2-5.4 [facility] Comment on above: Order Comment: 104.1 Performed By: #### L 500.2500, L100.0500 #### [facility] [address] [place], [address] RDW SD 49.1 fl High 35.1-43.9 [facility] Comment on above: Order Comment: 104.1 Performed By: #### L 500.2500, L100.0500 #### [facility] [address] [place], [address] WBC (Bld) [#/Vol] 4.3 10*3/uL Low 4.4-11.0 [facility] Comment on above: Order Comment: 104.1 Performed By: #### L 500.2500, L100.0500 #### [facility] [address] [place], [address] Prothrombin Time w/INRon INR Normal [facility] Comment on above: Order Comment: 104-1 Result Comment: FING ERSTICK Performed By: #### L 9200.0000 #### [facility] [address] [place], [address] PROTIME Normal 11.7-14.9 [facility] Comment on above: Order Comment: 104-1 Result Comment: FING ERSTICK Performed By: #### L 9200.0000 #### [facility] [address] [place], [address] Protime w/INR Fingerstickon 02-11-2025 INR Coag (PPP) [Relative time] 2.5 {INR} Normal [facility] Comment on above: Result Comment: Crit ical Value > 4.0 Performed By: #### L 9200.0000 #### [facility] [address] [place], [address] Protime [place] 26.4 SEC High 11.7-14.9 [facility] Comment on above: Performed By: #### L 9200.0000 #### [facility] [address] [place], [address] Protime w/INR Fingerstickon 02-07-2025 INR Coag (PPP) [Relative time] 2.2 {INR} Normal [facility] Comment on above: Result Comment: Crit ical Value > 4.0 Performed By: #### L 9200.0000 #### [facility] [address] [place], [address] Protime [place] 23.6 SEC High 11.7-14.9 [facility] Comment on above: Performed By: #### L 9200.0000 #### [facility] [address] [place], [address] Protime w/INR Fingerstickon 02-04-2025 INR Coag (PPP) [Relative time] 3.6 {INR} Normal [facility] Comment on above: Result Comment: Crit ical Value > 4.0 Performed By: #### L 9200.0000 #### [facility] [address] [place], [address] Protime [place] 36.4 SEC High 11.7-14.9 [facility] Comment on above: Performed By: #### L 9200.0000 #### [facility] [address] [place], [address] Prothrombin Time w/INRon INR Coag (PPP) [Relative time] 3.3 {INR} Normal [facility] Comment on above: Order Comment: 104-1 Performed By: #### L 300.3900 #### [facility] [address] [place], [address] PT Coag (PPP) [Time] 34.2 s High 11.7-14.9 [facility] Comment on above: Order Comment: 104-1 Performed By: #### L 300.3900 #### [facility] [address] [place], [address] Protime w/INR Fingerstickon 01-28-2025 INR Coag (PPP) [Relative time] 2.8 {INR} Normal [facility] Comment on above: Result Comment: Crit ical Value > 4.0 Performed By: #### L 9200.0000 #### [facility] [address] [place], [address] Protime [place] 29.1 SEC High 11.7-14.9 [facility] Comment on above: Performed By: #### L 9200.0000 #### [facility] [address] [place], [address] Protime w/INR Fingerstickon 01-25-2025 INR Coag (PPP) [Relative time] 3.4 {INR} Normal [facility] Comment on above: Result Comment: Crit ical Value > 4.0 Performed By: #### L 9200.0000 #### [facility] [address] [place], [address] Protime [place] 34.5 SEC High 11.7-14.9 [facility] Comment on above: Performed By: #### L 9200.0000 #### [facility] [address] [place], [address] Prothrombin Time w/INRon INR Coag (PPP) [Relative time] 2.8 {INR} Normal [facility] Comment on above: Order Comment: 104- Performed By: #### L 300.3900 #### [facility] [address] [place], [address] PT Coag (PPP) [Time] 30.5 s High 11.7-14.9 [facility] Comment on above: Order Comment: 104-1 Performed By: #### L 300.3900 #### [facility] [address] [place], [address] Prothrombin Time w/INRon INR Coag (PPP) [Relative time] 2.5 {INR} Normal [facility] Comment on above: Order Comment: 104.1 Performed By: #### L 9200.0000 #### [facility] [address] [place], [address] PT Coag (PPP) [Time] 27.1 s High 11.7-14.9 [facility] Comment on above: Order Comment: 104.1 Performed By: #### L 9200.0000 #### [facility] [address] [place], [address] Prothrombin Time w/INRon INR Coag (PPP) [Relative time] 2.4 {INR} Normal [facility] Comment on above: Order Comment: DID F INGERSTICK TWICE, BOTH TIMES GOT A 'NO CLOT DETECTED'MESSAGE, SO VA A VENOUS SAMPLE. SPOKE WITH NURSE RIVKA Performed By: #### L 9200.0000 #### [facility] [address] [place], [address] PT Coag (PPP) [Time] 26.9 s High 11.7-14.9 [facility] Comment on above: Order Comment: DID F INGERSTICK TWICE, BOTH TIMES GOT A 'NO CLOT DETECTED'MESSAGE, SO VA A VENOUS SAMPLE. SPOKE WITH NURSE RIVKA Performed By: #### L 9200.0000 #### [facility] [address] [place], [address] Protime w/INR Fingerstickon 01-17-2025 INR Coag (PPP) [Relative time] 1.9 {INR} Normal [facility] Comment on above: Result Comment: Crit ical Value > 4.0 Performed By: #### L 9200.0000 #### [facility] [address] [place], [address] Protime [place] 20.8 SEC High 11.7-14.9 [facility] Comment on above: Performed By: #### L 9200.0000 #### [facility] [address] [place], [address] Protime w/INR Fingerstickon 01-16-2025 INR Coag (PPP) [Relative time] 1.5 {INR} Normal [facility] Comment on above: Result Comment: Crit ical Value > 4.0 Performed By: #### L 9200.0000 #### [facility] [address] [place], [address] Protime [place] 17.2 SEC High 11.7-14.9 [facility] Comment on above: Performed By: #### L 9200.0000 #### [facility] [address] [place], [address] Prothrombin Time w/INRon INR Coag (PPP) [Relative time] 1.2 {INR} Normal [facility] Comment on above: Performed By: #### L 9200.0000 #### [facility] [address] [place], [address] PT Coag (PPP) [Time] 15.4 s High 11.7-14.9 [facility] Comment on above: Performed By: #### L 9200.0000 #### [facility] [address] [place], [address] 36on 01-08-2025 36 Normal [facility] Basic Metabolic Profile (BMP )on 01-07-2025 BUN/CRE 17.7 RATIO Normal 10-20 [facility] Comment on above: Order Comment: 104.1 Performed By: #### L 9200.0000 #### [facility] [address] [place], [address] Calcium [Mass/Vol] 9.1 mg/dL Normal 7.6-11.0 [facility] Comment on above: Order Comment: 104.1 Performed By: #### L 9200.0000 #### [facility] [address] [place], [address] Chloride [Moles/Vol] 109 mmol/L High 98-108 [facility] Comment on above: Order Comment: 104.1 Performed By: #### L 9200.0000 #### [facility] [address] [place], [address] CO2 [Moles/Vol] 19.7 mmol/L Low 21.0-32.0 [facility] Comment on above: Order Comment: 104.1 Performed By: #### L 9200.0000 #### [facility] [address] [place], [address] Creatinine [Mass/Vol] 1.15 mg/dL Normal 0.70-1.20 [facility] Comment on above: Order Comment: 104.1 Performed By: #### L 9200.0000 #### [facility] [address] [place], [address] GAP 10 Normal 5-15 [facility] Comment on above: Order Comment: 104.1 Performed By: #### L 9200.0000 #### [facility] [address] [place], [address] GFR/1.73 sq M.predicted among non-blacks MDRD (S/P/Bld) [Vol rate/Area] 47 mL/min/{1.73_m2} Low >60 [facility] Comment on above: Order Comment: 104.1 Result Comment: mL/m in/1.73m2 CKD-EPI Creatinine Equation (2020) Performed By: #### L 9200.0000 #### [facility] [address] [place], [address] Glucose [Mass/Vol] 87 mg/dL Normal 70-99 [facility] Comment on above: Order Comment: 104.1 Performed By: #### L 9200.0000 #### [facility] [address] [place], [address] Potassium [Moles/Vol] 5.0 mmol/L Normal 3.3-5.1 [facility] Comment on above: Order Comment: 104.1 Performed By: #### L 9200.0000 #### [facility] [address] [place], [address] Sodium [Moles/Vol] 138 mmol/L Normal 133-145 [facility] Comment on above: Order Comment: 104.1 Performed By: #### L 9200.0000 #### [facility] [address] [place], [address] Urea nitrogen [Mass/Vol] 20 mg/dL High 4-19 [facility] Comment on above: Order Comment: 104.1 Performed By: #### L 9200.0000 #### [facility] [address] [place], [address] CBC-Complete Blood Cnt No Di ffon 01-07-2025 Erythrocyte distribution width (RBC) [Ratio] 16.5 % High 11.6-14.6 [facility] Comment on above: Order Comment: 104.1 Performed By: #### L 9200.0000 #### [facility] [address] [place], [address] Hematocrit (Bld) [Volume fraction] 30.4 % Low 37-47 [facility] Comment on above: Order Comment: 104.1 Performed By: #### L 9200.0000 #### [facility] [address] [place], [address] Hemoglobin (Bld) [Mass/Vol] 9.8 g/dL Low 12.0-15.0 [facility] Comment on above: Order Comment: 104.1 Performed By: #### L 9200.0000 #### [facility] [address] [place], [address] MCH (RBC) [Entitic mass] 29.9 pg Normal 27.0-32.0 [facility] Comment on above: Order Comment: 104.1 Performed By: #### L 9200.0000 #### [facility] [address] [place], [address] MCHC (RBC) [Mass/Vol] 32.2 g/dL Normal 32-36 [facility] Comment on above: Order Comment: 104.1 Performed By: #### L 9200.0000 #### [facility] [address] [place], [address] MCV (RBC) [Entitic vol] 92.7 fL Normal 81-99 [facility] Comment on above: Order Comment: 104.1 Performed By: #### L 9200.0000 #### [facility] [address] [place], [address] Platelet mean volume (Bld) [Entitic vol] 10.0 fL Normal 6.2-12.0 [facility] Comment on above: Order Comment: 104.1 Performed By: #### L 9200.0000 #### [facility] [address] [place], [address] Platelets (Bld) [#/Vol] 254 10*3/uL Normal 150-450 [facility] Comment on above: Order Comment: 104.1 Performed By: #### L 9200.0000 #### [facility] [address] [place], [address] RBC (Bld) [#/Vol] 3.28 10*6/uL Low 4.2-5.4 [facility] Comment on above: Order Comment: 104.1 Performed By: #### L 9200.0000 #### [facility] [address] [place], [address] RDW SD 55.9 fl High 35.1-43.9 [facility] Comment on above: Order Comment: 104.1 Performed By: #### L 9200.0000 #### [facility] [address] [place], [address] WBC (Bld) [#/Vol] 4.5 10*3/uL Normal 4.4-11.0 [facility] Comment on above: Order Comment: 104.1 Performed By: #### L 9200.0000 #### [facility] [address] [place], [address] 36on 01-04-2025 36 Normal [facility] 36 Normal [facility] Progress Noteon 12-24-2024 Progress Note Normal [facility] No Panel Informationon 12-13 Left MICHELLE 0.71 [facility] Left arm BP 121 mmHg [facility] Left Dist Outflow EDV 6.5 cm/s [facility] Left Dist Outflow PSV 51.5 cm/s [facility] Left dorsalis pedis BP 67 mmHg [facility] Left Graft 1 Proximal Popliteal Stent [facility] Left Inflow Artery EDV 8.5 cm/s [facility] Left Inflow Artery PSV 46.5 cm/s [facility] Left Mid Outflow EDV 6.5 cm/s [facility] Left Mid Outflow PSV 58.1 cm/s [facility] Left Outflow Vessel EDV 9.8 cm/s [facility] Left Outflow Vessel PSV 89.9 cm/s S [facility] Left posterior tibial 94 mmHg [facility] Left Prox Outflow EDV 6.5 cm/s [facility] Left Prox Outflow PSV 51.5 cm/s [facility] Right MICHELLE 0.96 [facility] Right arm BP 133 mmHg [facility] Right YARITZA dist PSV 53.6 cm/s [facility] Right WEATHERIZATION COORDINATOR dist PSV 144.6 cm/[facility] Right WEATHERIZATION COORDINATOR mid AP diameter 0.92 cm [facility] Right WEATHERIZATION COORDINATOR mid TR diameter 0.89 cm [facility] Right WEATHERIZATION COORDINATOR prox PSV 133.7 cm/s [facility] Right Dist Outflow EDV 0 cm/s [facility] Right Dist Outflow PSV 45.3 cm/s [facility] Right dorsalis pedis BP 107 mmHg [facility] Right EIA dist PSV 144.6 cm/s [facility] Right Graft 1 Distal SFA Stent [facility] Right Inflow Artery EDV 4.6 cm/s S [facility] Right Inflow Artery PSV 100.7 cm/s S [facility] Right Mid Outflow EDV 2.3 cm/s [facility] Right Mid Outflow PSV 66.2 cm/s [facility] Right Outflow Vessel EDV 2.3 cm/s [facility] Right Outflow Vessel PSV 56.4 cm/s [facility] Right PFA AP diameter 0.59 cm [facility] Right PFA TR diameter 0.73 cm [facility] Right Pop A dist PSV 157.6 cm/s [facility] Right Pop A mid PSV 89.9 cm/s [facility] Right popliteal artery mid AP diameter 0.52 cm [facility] Right popliteal artery mid TR diameter 0.6 cm [facility] Right posterior tibial 128 mmHg [facility] Right Prox Outflow EDV 0 cm/s [facility] Right Prox Outflow PSV 68.6 cm/s [facility] Right EDUCATIONAL COORDINATOR dist PSV 48.1 cm/s [facility] Right SFA dist PSV 100.7 cm/s [facility] Right SFA distal AP diameter [...] Artery: >50% stenosis. Right side findings: Resting IMCHELLE is 0.96. This is within the normal [...] Noteon 12-05-2024 Progress Note Normal [facility] 36on 11-23-2024 36 Normal [facility] 36 Normal [facility] 36 Normal [facility] [id number] 11-22-2024 [id number] Normal [facility] Anesthesia Noteon 11-22-2024 Anesthesia Note Normal [facility] No Panel Informationon 11-22 There is [...] via assessment with doppler. 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 Made aware of patient's orders to lay flat until 1325. Daughter in law stated that she will call care facility later to make arrangements for transportation back. Normal [facility] Anesthesia Noteon 11-21-2024 Anesthesia Note Normal [facility] Basic Metabolic Profile (BMP )on 11-15-2024 BUN/CRE 18.3 RATIO Normal - [facility] Comment on above: Order Comment: 104-1 Performed By: #### L 9200.0000 #### [facility] [place], [address] Calcium [Mass/Vol] 9.0 mg/dL Normal 7.6-11.0 [facility] Comment on above: Order Comment: 104-1 Performed By: #### L 9200.0000 #### [facility] [address] [place], [address] Chloride [Moles/Vol] 108 mmol/L Normal 98-108 [facility] Comment on above: Order Comment: 104-1 Performed By: #### L 9200.0000 #### [facility] [address] [place], [address] CO2 [Moles/Vol] 22.1 mmol/L Normal 21.0-32.0 [facility] Comment on above: Order Comment: 104-1 Performed By: #### L 9200.0000 #### [facility] [address] [place], [address] Creatinine [Mass/Vol] 1.03 mg/dL Normal 0.70-1.20 [facility] Comment on above: Order Comment: 104-1 Performed By: #### L 9200.0000 #### [facility] [address] [place], [address] GAP 9 Normal 5-15 [facility] Comment on above: Order Comment: 104-1 Performed By: #### L 9200.0000 #### [facility] [address] [place], [address] GFR/1.73 sq M.predicted among non-blacks MDRD (S/P/Bld) [Vol rate/Area] 53 mL/min/{1.73_m2} Low >60 [facility] Comment on above: Order Comment: 104-1 Result Comment: mL/m in/1.73m2 CKD-EPI Creatinine Equation (2020) Performed By: #### L 9200.0000 #### [facility] [address] [place], [address] Glucose [Mass/Vol] 91 mg/dL Normal 70-99 [facility] Comment on above: Order Comment: 104-1 Performed By: #### L 9200.0000 #### [facility] [address] [place], [address] Potassium [Moles/Vol] 4.8 mmol/L Normal 3.3-5.1 [facility] Comment on above: Order Comment: 104-1 Performed By: #### L 9200.0000 #### [facility] [address] [place], [address] Sodium [Moles/Vol] 138 mmol/L Normal 133-145 [facility] Comment on above: Order Comment: 104-1 Performed By: #### L 9200.0000 #### [facility] [address] [place], [address] Urea nitrogen [Mass/Vol] 19 mg/dL Normal 4-19 [facility] Comment on above: Order Comment: 104-1 Performed By: #### L 9200.0000 #### [facility] [address] [place], [address] CBC W/Diff, Automatedon 05-0 1-5 Absolute Lymph 1.77 X10 3/uL Normal 0.83-4.51 [facility] Comment on above: Order Comment: 104-1 Performed By: #### L 9200.0000 #### [facility] [address] [place], [address] Absolute Neut 3.2 X10 3/uL Normal 2.0-7.7 [facility] Comment on above: Order Comment: 104-1 Performed By: #### L 9200.0000 #### [facility] [address] [place], [address] Basophils/100 WBC (Bld) 0.7 % Normal 0-1 [facility] Comment on above: Order Comment: 104-1 Performed By: #### L 9200.0000 #### [facility] [address] [place], [address] Eosinophils/100 WBC (Bld) 2.9 % Normal 0-5 [facility] Comment on above: Order Comment: 104-1 Performed By: #### L 9200.0000 #### [facility] [address] [place], [address] Erythrocyte distribution width (RBC) [Ratio] 18.8 % High 11.6-14.6 [facility] Comment on above: Order Comment: 104-1 Performed By: #### L 9200.0000 #### [facility] [address] [place], [address] Hematocrit (Bld) [Volume fraction] 30.9 % Low 37-47 [facility] Comment on above: Order Comment: 104-1 Performed By: #### L 9200.0000 #### [facility] [address] [place], [address] Hemoglobin (Bld) [Mass/Vol] 9.8 g/dL Low 12.0-15.0 [facility] Comment on above: Order Comment: 104-1 Performed By: #### L 9200.0000 #### [facility] [address] [place], [address] IG% 0.200 Normal 0.0-0.9 [facility] Comment on above: Order Comment: 104-1 Result Comment: IG% - Immature Granulocytes (promyelocytes, myelocytes and metamyelocytes) > 1% indicates that a LEFT SHIFT is Present. Performed By: #### L 9200.0000 #### [facility] [address] [place], [address] Lymphocytes/100 WBC (Bld) 30.3 % Normal 19-41 [facility] Comment on above: Order Comment: 104-1 Performed By: #### L 9200.0000 #### [facility] [address] [place], [address] MCH (RBC) [Entitic mass] 28.4 pg Normal 27.0-32.0 [facility] Comment on above: Order Comment: 104-1 Performed By: #### L 9200.0000 #### [facility] [address] [place], [address] MCHC (RBC) [Mass/Vol] 31.7 g/dL Low 32-36 [facility] Comment on above: Order Comment: 104-1 Performed By: #### L 9200.0000 #### [facility] [address] [place], [address] MCV (RBC) [Entitic vol] 89.6 fL Normal 81-99 [facility] Comment on above: Order Comment: 104-1 Performed By: #### L 9200.0000 #### [facility] [address] [place], [address] Monocytes/100 WBC (Bld) 11.3 % High 0-10 [facility] Comment on above: Order Comment: 104-1 Performed By: #### L 9200.0000 #### [facility] [address] [place], [address] Neutrophils/100 WBC (Bld) 54.6 % Normal 47-70 [facility] Comment on above: Order Comment: 104-1 Performed By: #### L 9200.0000 #### [facility] [address] [place], [address] Nucleated RBC (Bld) [#/Vol] 0 10*3/uL Normal 0-5 [facility] Comment on above: Order Comment: 104-1 Performed By: #### L 9200.0000 #### [facility] [address] [place], [address] Platelet mean volume (Bld) [Entitic vol] 10.2 fL Normal 6.2-12.0 [facility] Comment on above: Order Comment: 104-1 Performed By: #### L 9200.0000 #### [facility] [address] [place], [address] Platelets (Bld) [#/Vol] 303 10*3/uL Normal 150-450 [facility] Comment on above: Order Comment: 104-1 Performed By: #### L 9200.0000 #### [facility] [address] [place], [address] RBC (Bld) [#/Vol] 3.45 10*6/uL Low 4.2-5.4 [facility] Comment on above: Order Comment: 104-1 Performed By: #### L 9200.0000 #### [facility] [address] [place], [address] RDW SD 61.8 fl High 35.1-43.9 [facility] Comment on above: Order Comment: 104-1 Performed By: #### L 9200.0000 #### [facility] [address] [place], [address] WBC (Bld) [#/Vol] 5.8 10*3/uL Normal 4.4-11.0 [facility] Comment on above: Order Comment: 104-1 Performed By: #### L 9200.0000 #### [facility] [address] [place], [address] 36on 11-14-2024 36 Normal [facility] 36on 11-08-2024 36 Fidel called to state that she spoke with Mel and she would like to proceed with angio. Normal [facility] Progress Noteon 11-05-2024 Progress Note Normal [facility] Anion gap in Serum or Plasma Ordered By: Megan Montoya on 10-08-2024 Anion gap [Moles/Vol] 12 mmol/L 5-15 [facility] BUN/creatinine ratioOrdered By: Megan Montoya on 10-08-2024 Urea nitrogen/Creatinine [Mass ratio] 16.5 mg/mg 10-20 [facility] Basic Metabolic Profile (BMP )on 10-08-2024 BUN/CRE 16.5 RATIO Normal - [facility] Comment on above: Order Comment: 104.1 Performed By: #### L 500.2500, L100.0500 #### [facility] [address] [place], [address] Calcium [Mass/Vol] 9.0 mg/dL Normal 7.6-11.0 [facility] Comment on above: Order Comment: 104.1 Performed By: #### L 500.2500, L100.0500 #### [facility] [address] [place], [address] Chloride [Moles/Vol] 106 mmol/L Normal 98-108 [facility] Comment on above: Order Comment: 104.1 Performed By: #### L 500.2500, L100.0500 #### [facility] [address] [place], [address] CO2 [Moles/Vol] 20.0 mmol/L Low 21.0-32.0 [facility] Comment on above: Order Comment: 104.1 Performed By: #### L 500.2500, L100.0500 #### [facility] [address] [place], [address] Creatinine [Mass/Vol] 1.05 mg/dL Normal 0.70-1.20 [facility] Comment on above: Order Comment: 104.1 Performed By: #### L 500.2500, L100.0500 #### [facility] [address] [place], [address] GAP 12 Normal 5-15 [facility] Comment on above: Order Comment: 104.1 Performed By: #### L 500.2500, L100.0500 #### [facility] [address] [place], [address] GFR/1.73 sq M.predicted among non-blacks MDRD (S/P/Bld) [Vol rate/Area] 52 mL/min/{1.73_m2} Low >60 [facility] Comment on above: Order Comment: 104.1 Result Comment: mL/m in/1.73m2 CKD-EPI Creatinine Equation (2020) Performed By: #### L 500.2500, L100.0500 #### [facility] [address] [place], [address] Glucose [Mass/Vol] 98 mg/dL Normal 70-99 [facility] Comment on above: Order Comment: 104.1 Performed By: #### L 500.2500, L100.0500 #### [facility] [address] [place], [address] Potassium [Moles/Vol] 4.3 mmol/L Normal 3.3-5.1 [facility] Comment on above: Order Comment: 104.1 Result Comment: Hemo lysis present, Results??could be affected. ?? Performed By: #### L 500.2500, L100.0500 #### [facility] [address] [place], [address] Sodium [Moles/Vol] 137 mmol/L Normal 133-145 [facility] Comment on above: Order Comment: 104.1 Performed By: #### L 500.2500, L100.0500 #### [facility] [address] [place], [address] Urea nitrogen [Mass/Vol] 17 mg/dL Normal 4-19 [facility] Comment on above: Order Comment: 104.1 Performed By: #### L 500.2500, L100.0500 #### [facility] [address] [place], [address] CBC-Complete Blood Cnt No Di ffon 10-08-2024 Erythrocyte distribution width (RBC) [Ratio] 17.5 % High 11.6-14.6 [facility] Comment on above: Order Comment: 104.1 Performed By: #### L 500.2500, L100.0500 #### [facility] [address] [place], [address] Hematocrit (Bld) [Volume fraction] 30.4 % Low 37-47 [facility] Comment on above: Order Comment: 104.1 Performed By: #### L 500.2500, L100.0500 #### [facility] [address] [place], [address] Hemoglobin (Bld) [Mass/Vol] 9.6 g/dL Low 12.0-15.0 [facility] Comment on above: Order Comment: 104.1 Performed By: #### L 500.2500, L100.0500 #### [facility] [address] [place], [address] MCH (RBC) [Entitic mass] 27.4 pg Normal 27.0-32.0 [facility] Comment on above: Order Comment: 104.1 Performed By: #### L 500.2500, L100.0500 #### [facility] [address] [place], [address] MCHC (RBC) [Mass/Vol] 31.6 g/dL Low 32-36 [facility] Comment on above: Order Comment: 104.1 Performed By: #### L 500.2500, L100.0500 #### [facility] [address] [place], [address] MCV (RBC) [Entitic vol] 86.9 fL Normal 81-99 [facility] Comment on above: Order Comment: 104.1 Performed By: #### L 500.2500, L100.0500 #### [facility] [address] [place], [address] Platelet mean volume (Bld) [Entitic vol] 10.3 fL Normal 6.2-12.0 [facility] Comment on above: Order Comment: 104.1 Performed By: #### L 500.2500, L100.0500 #### [facility] [address] [place], [address] Platelets (Bld) [#/Vol] 408 10*3/uL Normal 150-450 [facility] Comment on above: Order Comment: 104.1 Performed By: #### L 500.2500, L100.0500 #### [facility] [address] [place], [address] RBC (Bld) [#/Vol] 3.50 10*6/uL Low 4.2-5.4 [facility] Comment on above: Order Comment: 104.1 Performed By: #### L 500.2500, L100.0500 #### [facility] [address] [place], [address] RDW SD 56.2 fl High 35.1-43.9 [facility] Comment on above: Order Comment: 104.1 Performed By: #### L 500.2500, L100.0500 #### [facility] [address] [place], [address] WBC (Bld) [#/Vol] 6.4 10*3/uL Normal 4.4-11.0 [facility] Comment on above: Order Comment: 104.1 Performed By: #### L 500.2500, L100.0500 #### [facility] [address] [place], [address] Carbon dioxide, total [Moles /volume] in Central venous bloodOrdered By: Megan Montoya on 10-08-2024 CO2 [Moles/Vol] 20.0 mmol/L Low 21.0-32.0 [facility] Chloride assayOrdered By: Johnathan Guzman on 10-08-2024 Chloride [Moles/Vol] 106 mmol/L 98-108 [facility] Erythrocyte distribution wid th ratioOrdered By: Megan Montoya on 10-08-2024 Erythrocyte distribution width (RBC) [Ratio] 17.5 % High 11.6-14.6 [facility] Erythrocyte distribution wid th standard deviationOrdered By: Megan Monotya on 10-08-2024 Erythrocyte distribution width (RBC) [Entitic vol] 56.2 fL High 35.1-43.9 [facility] GFR/1.73 sq M.predicted gricelda g non-blacks MDRD (S/P/Bld) [Vol rate/Area]Ordered By: Megan Montoya on 10-08-2024 Estimated GFR (MDRD) Non-Af Amer 52 Low >60 [facility] Comment on above: mL/min/1.73m2 CKD-EP I Creatinine Equation (2020) Hematocrit Auto (Bld) [Volum e fraction]Ordered By: Megan Montoya on 10-08-2024 Hematocrit (Bld) [Volume fraction] 30.4 % Low 37-47 [facility] Hemoglobin measurementOrdere d By: Megan Montoya on 10-08-2024 Hemoglobin (Bld) [Mass/Vol] 9.6 g/dL Low 12.0-15.0 [facility] MCV (mean corpuscular volume ) determinationOrdered By: Megan Montoya on 10-08-2024 MCV (RBC) [Entitic vol] 86.9 fL 81-99 [facility] Mean corpuscular hemoglobin (MCH) determinationOrdered By: Megan Montoya on 10-08-2024 MCH (RBC) [Entitic mass] 27.4 pg 27.0-32.0 [facility] Mean corpuscular hemoglobin concentration (MCHC) determinationOrdered By: Megan Montoya on 10-08-2024 MCHC (RBC) [Mass/Vol] 31.6 g/dL Low 32-36 [facility] Mean platelet volume determi nationOrdered By: Megan Montoya on 10-08-2024 Platelet mean volume (Bld) [Entitic vol] 10.3 fL 6.2-12.0 [facility] Platelet countOrdered By: Johnathan Guzman on 10-08-2024 Platelets (Bld) [#/Vol] 408 10*3/uL 150-450 [facility] Potassium (Unsp spec) [Mass/ Vol]Ordered By: Megan Montoya on 10-08-2024 Potassium [Moles/Vol] 4.3 mmol/L 3.3-5.1 [facility] Comment on above: Hemolysis present, R esults could be affected. RBC Auto (Bld) [#/Vol]Ordere d By: Megan Montoya on 10-08-2024 RBC (Bld) [#/Vol] 3.50 10*6/uL Low 4.2-5.4 [facility] Serum creatinine measurement (mass/volume)Ordered By: Megan Montoya on 10-08-2024 Creatinine [Mass/Vol] 1.05 mg/dL 0.70-1.20 [facility] Serum glucose measurement (m ass/volume)Ordered By: Megan Montoya on 10-08-2024 Glucose [Mass/Vol] 98 mg/dL 70-99 [facility] Serum or plasma calcium reyna urement (mass/volume)Ordered By: Megan Montoya on 10-08-2024 Calcium [Mass/Vol] 9.0 mg/dL 7.6-11.0 [facility] Serum or plasma urea nitroge n measurement (mass/volume)Ordered By: Megan Montoya on 10-08-2024 Urea nitrogen [Mass/Vol] 17 mg/dL 4-19 [facility] Sodium levelOrdered By: Juan C Montoya on 10-08-2024 Sodium [Moles/Vol] 137 mmol/L 133-145 [facility] White blood cell (WBC) count Ordered By: Megan Montoya on 10-08-2024 WBC (Bld) [#/Vol] 6.4 10*3/uL 4.4-11.0 [facility] BSCAN OD (RIGHT EYE)on 10-[address] [facility] Radiology Study observation (narrative) [facility] BUN/creatinine ratioOrdered By: Megan Montoya on 09-17-2024 Urea nitrogen/Creatinine [Mass ratio] 15.7 mg/mg 10-20 [facility] Basic Metabolic Profile (BMP )on 09-17-2024 Anion gap [Moles/Vol] 10 mmol/L Normal 5-15 [facility] Comment on above: Order Comment: 104-1 Performed By: #### L 300.6050 #### [facility] [address] [place], [address] BUN/CRE 15.7 RATIO Normal 10-20 [facility] Comment on above: Order Comment: 104-1 Performed By: #### L 300.3900 #### [facility] [address] [place], [address] Calcium [Mass/Vol] 9.0 mg/dL Normal 7.6-11.0 [facility] Comment on above: Order Comment: 104-1 Performed By: #### L 300.3900 #### [facility] [address] [place], [address] Chloride [Moles/Vol] 108 mmol/L Normal 96-108 [facility] Comment on above: Order Comment: 104-1 Performed By: #### L 300.3900 #### [facility] [address] [place], [address] CO2 [Moles/Vol] 21.6 mmol/L Low 22.0-29.0 [facility] Comment on above: Order Comment: 104-1 Performed By: #### L 300.3900 #### [facility] [address] [place], [address] Creatinine [Mass/Vol] 1.03 mg/dL Normal 0.70-1.20 [facility] Comment on above: Order Comment: 104-1 Performed By: #### L 300.3900 #### [facility] [address] [place], [address] GFR/1.73 sq M.predicted among non-blacks MDRD (S/P/Bld) [Vol rate/Area] 54 mL/min/{1.73_m2} Low >60 [facility] Comment on above: Order Comment: 104-1 Result Comment: mL/m in/1.73m2 CKD-EPI Creatinine Equation (2020) Performed By: #### L 300.3900 #### [facility] [address] [place], [address] Glucose [Mass/Vol] 90 mg/dL Normal 70-99 [facility] Comment on above: Order Comment: 104-1 Performed By: #### L 300.3900 #### [facility] [address] [place], [address] Potassium [Moles/Vol] 4.5 mmol/L Normal 3.3-5.1 [facility] Comment on above: Order Comment: 104-1 Performed By: #### L 300.3900 #### [facility] [address] [place], [address] Sodium [Moles/Vol] 140 mmol/L Normal 133-145 [facility] Comment on above: Order Comment: 104-1 Performed By: #### L 300.3900 #### [facility] [address] [place], [address] Urea nitrogen [Mass/Vol] 16 mg/dL Normal 4-19 [facility] Comment on above: Order Comment: 104-1 Performed By: #### L 300.3900 #### [facility] [address] [place], [address] Carbon dioxide measurementOr dered By: Megan Montoya on 09-17-2024 CO2 [Moles/Vol] 21.6 mmol/L Low 22.0-29.0 [facility] Chloride measurementOrdered By: Megan Montoya on 09-17-2024 Chloride [Moles/Vol] 108 mmol/L 96-108 [facility] GFR/1.73 sq M.predicted gricleda g non-blacks MDRD (S/P/Bld) [Vol rate/Area]Ordered By: Megan Montoya on 09-17-2024 Estimated GFR (MDRD) Non-Af Amer 54 Low >60 [facility] Comment on above: mL/min/1.73m2 CKD-EP I Creatinine Equation (2020) Serum creatinine measurement (mass/volume)Ordered By: Megan Montoya on 09-17-2024 Creatinine [Mass/Vol] 1.03 mg/dL 0.70-1.20 [facility] Serum glucose measurement (m ass/volume)Ordered By: Megan Montoya on 09-17-2024 Glucose [Mass/Vol] 90 mg/dL 70-99 [facility] Serum or plasma anion gap de termination (moles/volume)Ordered By: Megan Montoya on 09-17-2024 Anion gap [Moles/Vol] 10 mmol/L 5-15 [facility] Serum or plasma calcium reyna urement (mass/volume)Ordered By: Megan Montoya on 09-17-2024 Calcium [Mass/Vol] 9.0 mg/dL 7.6-11.0 [facility] Serum or plasma potassium me asurementOrdered By: Megan Montoya on 09-17-2024 Potassium [Moles/Vol] 4.5 mmol/L 3.3-5.1 [facility] Serum or plasma sodium measu rement (moles/volume)Ordered By: Megan Montoya on 09-17-2024 Sodium [Moles/Vol] 140 mmol/L 133-145 [facility] Serum or plasma urea nitroge n measurement (mass/volume)Ordered By: Megan Montoya on 09-17-2024 Urea nitrogen [Mass/Vol] 16 mg/dL 4-19 [facility] Basic Metabolic Profile (BMP )on 09-10-2024 BUN/CRE 17.9 RATIO Normal 10-20 [facility] Comment on above: Order Comment: 104.1 Performed By: #### L 9200.0000 #### [facility] [address] [place], [place], [id number] CA,Total 9.0 mg/dL Normal 8.5-10.1 [facility] Comment on above: Order Comment: 104.1 Performed By: #### L 9200.0000 #### [facility] [address] [place], [place], [address] Chloride [Moles/Vol] 108 mmol/L High 98-107 [facility] Comment on above: Order Comment: 104.1 Performed By: #### L 9200.0000 #### [facility] [address] [place], [address] CO2 [Moles/Vol] 24.0 mmol/L Normal 21.0-32.0 [facility] Comment on above: Order Comment: 104.1 Performed By: #### L 9200.0000 #### [facility] [address] [place], [address] Creatinine [Mass/Vol] 1.23 mg/dL High 0.55-1.02 [facility] Comment on above: Order Comment: 104.1 Result Comment: The validity of the calculated GFR GFRAA in patients over 70 years has not been determined. Clinical correlation is essential. Performed By: #### L 9200.0000 #### [facility] [address] [place], [address] EST GFR - AA 53 mL/min Low >60 [facility] Comment on above: Order Comment: 104.1 Result Comment: Afri can [place] GFR Calc Performed By: #### L 9200.0000 #### [facility] [address] [place], [address] GAP 5 Normal 5-15 [facility] Comment on above: Order Comment: 104.1 Performed By: #### L 9200.0000 #### [facility] [address] [place], [address] GFR/1.73 sq M.predicted among non-blacks MDRD (S/P/Bld) [Vol rate/Area] 44 mL/min/{1.73_m2} Low >60 [facility] Comment on above: Order Comment: 104.1 Result Comment: Non- GFR Calc Performed By: #### L 9200.0000 #### [facility] [address] [place], [address] Glucose [Mass/Vol] 98 mg/dL Normal 74-106 [facility] Comment on above: Order Comment: 104.1 Performed By: #### L 9200.0000 #### [facility] [address] [place], [address] Potassium [Moles/Vol] 4.5 mmol/L Normal 3.5-5.1 [facility] Comment on above: Order Comment: 104.1 Performed By: #### L 9200.0000 #### [facility] [address] [place], [address] Sodium [Moles/Vol] 137 mmol/L Normal 136-145 [facility] Comment on above: Order Comment: 104.1 Performed By: #### L 9200.0000 #### [facility] [address] [place], [address] Urea nitrogen [Mass/Vol] 22 mg/dL High 7-18 [facility] Comment on above: Order Comment: 104.1 Performed By: #### L 9200.0000 #### [facility] [address] [place], [address] Blood urea nitrogen (BUN)/cr eatinine ratioOrdered By: Megan Montoya on 09-10-2024 Urea nitrogen/Creatinine [Mass ratio] 17.9 mg/mg 10-20 [facility] CBC-Complete Blood Cnt No Di ffon 09-10-2024 Erythrocyte distribution width (RBC) [Ratio] 17.8 % High 11.6-14.6 [facility] Comment on above: Order Comment: 104.1 Performed By: #### L 9200.0000 #### [facility] [address] [place], [address] Hematocrit (Bld) [Volume fraction] 31.9 % Low 37-47 [facility] Comment on above: Order Comment: 104.1 Performed By: #### L 9200.0000 #### [facility] [address] [place], [address] Hemoglobin (Bld) [Mass/Vol] 9.7 g/dL Low 12.0-15.0 [facility] Comment on above: Order Comment: 104.1 Performed By: #### L 9200.0000 #### [facility] [address] [place], [address] MCH (RBC) [Entitic mass] 26.1 pg Low 27.0-32.0 [facility] Comment on above: Order Comment: 104.1 Performed By: #### L 9200.0000 #### [facility] [address] [place], [address] MCHC (RBC) [Mass/Vol] 30.4 g/dL Low 32-36 [facility] Comment on above: Order Comment: 104.1 Performed By: #### L 9200.0000 #### [facility] [address] [place], [address] MCV (RBC) [Entitic vol] 85.8 fL Normal 81-99 [facility] Comment on above: Order Comment: 104.1 Performed By: #### L 9200.0000 #### [facility] [address] [place], [address] Platelet mean volume (Bld) [Entitic vol] 9.5 fL Normal 6.2-12.0 [facility] Comment on above: Order Comment: 104.1 Performed By: #### L 9200.0000 #### [facility] [address] [place], [address] Platelets (Bld) [#/Vol] 485 10*3/uL High 150-450 [facility] Comment on above: Order Comment: 104.1 Performed By: #### L 9200.0000 #### [facility] [address] [place], [address] RBC (Bld) [#/Vol] 3.72 10*6/uL Low 4.2-5.4 [facility] Comment on above: Order Comment: 104.1 Performed By: #### L 9200.0000 #### [facility] [address] [place], [place], [id number] RDW SD 55.2 fl High 35.1-43.9 [facility] Comment on above: Order Comment: 104.1 Performed By: #### L 9200.0000 #### [facility] [address] [place], [place], [address] WBC (Bld) [#/Vol] 7.7 10*3/uL Normal 4.4-11.0 [facility] Comment on above: Order Comment: 104.1 Performed By: #### L 9200.0000 #### [facility] [address] [place], [place], [address] Carbon dioxide measurementOr dered By: Megan Montoya on 09-10-2024 CO2 [Moles/Vol] 24.0 mmol/L 21.0-32.0 [facility] Chloride measurementOrdered By: Megan Montoya on 09-10-2024 Chloride [Moles/Vol] 108 mmol/L High 98-107 [facility] Erythrocyte distribution wid th ratioOrdered By: Megan Montoya on 09-10-2024 Erythrocyte distribution width (RBC) [Ratio] 17.8 % High 11.6-14.6 [facility] Erythrocyte distribution wid th standard deviationOrdered By: Megan Montoya on 09-10-2024 Erythrocyte distribution width (RBC) [Entitic vol] 55.2 fL High 35.1-43.9 [facility] Estimated glomerular filtrat ion rate (GFR) AmericanOrdered By: Megan Montoya on 09-10-2024 Estimated GFR (MDRD) Amer 53 mL/min Low >60 [facility] Comment on above: GFR Calc Glomerular filtration rate ( GFR) estimationOrdered By: Megan Montoya on 09-10-2024 Estimated GFR (MDRD) Non-Af Amer 44 mL/min Low >60 [facility] Comment on above: Non- GFR Calc Glucose measurementOrdered B y: Megan Montoya on 09-10-2024 Glucose [Mass/Vol] 98 mg/dL 74-106 [facility] Hematocrit Auto (Bld) [Volum e fraction]Ordered By: Megan Montoya on 09-10-2024 Hematocrit (Bld) [Volume fraction] 31.9 % Low 37-47 [facility] Hemoglobin measurementOrdere d By: Megan Montoya on 09-10-2024 Hemoglobin (Bld) [Mass/Vol] 9.7 g/dL Low 12.0-15.0 [facility] MCV (mean corpuscular volume ) determinationOrdered By: Megan Montoya on 09-10-2024 MCV (RBC) [Entitic vol] 85.8 fL 81-99 [facility] Mean corpuscular hemoglobin (MCH) determinationOrdered By: Megan Montoya on 09-10-2024 MCH (RBC) [Entitic mass] 26.1 pg Low 27.0-32.0 [facility] Mean corpuscular hemoglobin concentration (MCHC) determinationOrdered By: Megan Montoya on 09-10-2024 MCHC (RBC) [Mass/Vol] 30.4 g/dL Low 32-36 [facility] Mean platelet volume determi nationOrdered By: Megan Montoya on 09-10-2024 Platelet mean volume (Bld) [Entitic vol] 9.5 fL 6.2-12.0 [facility] Platelet countOrdered By: Johnathan Guzman on 09-10-2024 Platelets (Bld) [#/Vol] 485 10*3/uL High 150-450 [facility] Potassium measurementOrdered By: Megan Montoya on 09-10-2024 Potassium [Moles/Vol] 4.5 mmol/L 3.5-5.1 [facility] RBC Auto (Bld) [#/Vol]Ordere d By: Megan Montoya on 09-10-2024 RBC (Bld) [#/Vol] 3.72 10*6/uL Low 4.2-5.4 [facility] Serum anion gap measurementO rdered By: Megan Montoya on 09-10-2024 Anion gap [Moles/Vol] 5 mmol/L 5-15 [facility] Serum or plasma calcium reyna urement (mass/volume)Ordered By: Megan Montoya on 09-10-2024 Calcium [Mass/Vol] 9.0 mg/dL 8.5-10.1 [facility] Serum or plasma creatinine m easurement (mass/volume)Ordered By: Megan Montoya on 09-10-2024 Creatinine [Mass/Vol] 1.23 mg/dL High 0.55-1.02 [facility] Comment on above: The validity of the calculated GFR & GFRAA in patients over 70 years has not been determined. Clinical correlation is essential. Serum or plasma urea nitroge n measurement (mass/volume)Ordered By: Megan Montoya on 09-10-2024 Urea nitrogen [Mass/Vol] 22 mg/dL High 7-18 [facility] Sodium levelOrdered By: Juan C Montoya on 09-10-2024 Sodium [Moles/Vol] 137 mmol/L 136-145 [facility] White blood cell (WBC) count Ordered By: Megan Montoya on 09-10-2024 WBC (Bld) [#/Vol] 7.7 10*3/uL 4.4-11.0 [facility] Urine Cultureon 09-06-2024 URC UNKNOWN METHOD OF COLLECTION Proteus mirabilis [place] Count 50,000-80,000 Klebsiella pneumoniae sp pneum Klebsiella [...] TMP SMX Islt AGATA <=20 S Normal [facility] Comment on above: Performed By: #### L 9200.0000 #### [facility] [address] [place], [address] Urinalysis, Completeon 09-04 BACTERIA 4+ /hpf Normal None Seen [facility] Comment on above: Order Comment: UNKNO WN METHOD OF COLLECTIONCLEAN CATCH Performed By: #### L [id number] #### [facility] [address] [place], [address] EPI,SQUAMOUS 10-25 SEEN Normal 5-10 [facility] Comment on above: Order Comment: UNKNO WN METHOD OF COLLECTIONCLEAN CATCH Performed By: #### L [id number] #### [facility] [address] [place], [address] Mucus Ql (Urine sed) 1+ /hpf Normal [facility] Comment on above: Order Comment: UNKNO WN METHOD OF COLLECTIONCLEAN CATCH Performed By: #### L 9200.0000 #### [facility] [address] [place], [address] RBC 5-10 SEEN Normal 0-5 [facility] Comment on above: Order Comment: UNKNO WN METHOD OF COLLECTIONCLEAN CATCH Performed By: #### L 9200.0000 #### [facility] [address] [place], [address] WBC 50-100 SEEN Normal 0-5 [facility] Comment on above: Order Comment: UNKNO WN METHOD OF COLLECTIONCLEAN CATCH Performed By: #### L [id number] #### [facility] [address] [place], [address] Basic Metabolic Profile (BMP )on 09-03-2024 BUN/CRE 20.7 RATIO High 10-20 [facility] Comment on above: Order Comment: 104-1 Performed By: #### L [id number] #### [facility] [address] [place], [address] CA,Total 9.4 mg/dL Normal 8.5-10.1 [facility] Comment on above: Order Comment: 104-1 Performed By: #### L [id number] #### [facility] [address] [place], [address] Chloride [Moles/Vol] 109 mmol/L High 98-107 [facility] Comment on above: Order Comment: 104-1 Performed By: #### L [id number] #### [facility] [address] [place], [address] CO2 [Moles/Vol] 21.0 mmol/L Normal 21.0-32.0 [facility] Comment on above: Order Comment: 104-1 Performed By: #### L [id number] #### [facility] [address] [place], [address] Creatinine [Mass/Vol] 0.92 mg/dL Normal 0.55-1.02 [facility] Comment on above: Order Comment: 104-1 Result Comment: The validity of the calculated GFR GFRAA in patients over 70 years has not been determined. Clinical correlation is essential. Performed By: #### L [id number] #### [facility] [address] [place], [address] EST GFR - AA 75 mL/min Normal >60 [facility] Comment on above: Order Comment: 104-1 Result Comment: Afri can [place] GFR Calc Performed By: #### L [id number] #### [facility] [address] [place], [address] GAP 9 Normal 5-15 [facility] Comment on above: Order Comment: 104-1 Performed By: #### L [id number] #### [facility] [address] [place], [address] GFR/1.73 sq M.predicted among non-blacks MDRD (S/P/Bld) [Vol rate/Area] 62 mL/min/{1.73_m2} Normal >60 [facility] Comment on above: Order Comment: 104-1 Result Comment: Non- GFR Calc Performed By: #### L 9200.0000 #### [facility] [address] [place], [address] Glucose [Mass/Vol] 115 mg/dL High 74-106 [facility] Comment on above: Order Comment: 104-1 Result Comment: Fast ing Glucose result from 100 to 125 mg/dL suggests IMPAIRED HOMEOSTASIS per A.D.A. criteria. Performed By: #### L [id number] #### [facility] [address] [place], [address] Potassium [Moles/Vol] 4.4 mmol/L Normal 3.5-5.1 [facility] Comment on above: Order Comment: 104-1 Performed By: #### L [id number] #### [facility] [address] [place], [address] Sodium [Moles/Vol] 139 mmol/L Normal 136-145 [facility] Comment on above: Order Comment: 104-1 Performed By: #### L [id number] #### [facility] [address] [place], [address] Urea nitrogen [Mass/Vol] 19 mg/dL High 7-18 [facility] Comment on above: Order Comment: 104-1 Performed By: #### L [id number] #### [facility] [address] [place], [address] Bilirubin Test strip Ql (U)O rdered By: Megan Montoya on 09-03-2024 Bilirubin Ql (U) Negative Negative [facility] Blood urea nitrogen (BUN)/cr eatinine ratioOrdered By: Megan Montoya on 09-03-2024 Urea nitrogen/Creatinine [Mass ratio] 20.7 mg/mg High 10-20 [facility] CBC-Complete Blood Cnt No Di ffon 09-03-2024 Erythrocyte distribution width (RBC) [Ratio] 17.9 % High 11.6-14.6 [facility] Comment on above: Order Comment: 104-1 Performed By: #### L [id number] #### [facility] [address] [place], [address] Hematocrit (Bld) [Volume fraction] 30.8 % Low 37-47 [facility] Comment on above: Order Comment: 104-1 Performed By: #### L [id number] #### [facility] [address] [place], [address] Hemoglobin (Bld) [Mass/Vol] 9.5 g/dL Low 12.0-15.0 [facility] Comment on above: Order Comment: 104-1 Performed By: #### L [id number] #### [facility] [address] [place], [address] MCH (RBC) [Entitic mass] 25.7 pg Low 27.0-32.0 [facility] Comment on above: Order Comment: 104-1 Performed By: #### L [id number] #### [facility] [address] [place], [address] MCHC (RBC) [Mass/Vol] 30.8 g/dL Low 32-36 [facility] Comment on above: Order Comment: 104-1 Performed By: #### L [id number] #### [facility] [address] [place], [address] MCV (RBC) [Entitic vol] 83.5 fL Normal 81-99 [facility] Comment on above: Order Comment: 104-1 Performed By: #### L [id number] #### [facility] [address] [place], [address] Platelet mean volume (Bld) [Entitic vol] 10.2 fL Normal 6.2-12.0 [facility] Comment on above: Order Comment: 104-1 Performed By: #### L [id number] #### [facility] [address] [place], [address] Platelets (Bld) [#/Vol] 431 10*3/uL Normal 150-450 [facility] Comment on above: Order Comment: 104-1 Performed By: #### L [id number] #### [facility] [address] [place], [address] RBC (Bld) [#/Vol] 3.69 10*6/uL Low 4.2-5.4 [facility] Comment on above: Order Comment: 104-1 Performed By: #### L [id number] #### [facility] [address] [place], [address] RDW SD 54.3 fl High 35.1-43.9 [facility] Comment on above: Order Comment: 104-1 Performed By: #### L [id number] #### [facility] [address] [place], [address] WBC (Bld) [#/Vol] 10.6 10*3/uL Normal 4.4-11.0 [facility] Comment on above: Order Comment: 104-1 Performed By: #### L [id number] #### [facility] [address] [place], [address] Carbon dioxide measurementOr dered By: Megan Montoya on 09-03-2024 CO2 [Moles/Vol] 21.0 mmol/L 21.0-32.0 [facility] Chloride measurementOrdered By: Megan Montoya on 09-03-2024 Chloride [Moles/Vol] 109 mmol/L High 98-107 [facility] Epithelial cells.squamous LM Ql (Urine sed)Ordered By: Megan Montoya on 09-03-2024 Epithelial cells.squamous LM.HPF (Urine sed) [#/Area] 10 /[HPF] 5-10 [facility] Erythrocyte distribution wid th ratioOrdered By: Megan Montoya on 09-03-2024 Erythrocyte distribution width (RBC) [Ratio] 17.9 % High 11.6-14.6 [facility] Erythrocyte distribution wid th standard deviationOrdered By: Megan Montoya on 09-03-2024 Erythrocyte distribution width (RBC) [Entitic vol] 54.3 fL High 35.1-43.9 [facility] Estimated glomerular filtrat ion rate (GFR) AmericanOrdered By: Megan Montoya on 09-03-2024 Estimated GFR (MDRD) Amer 75 mL/min >60 [facility] Comment on above: GFR Calc Glomerular filtration rate ( GFR) estimationOrdered By: Megan Montoya on 09-03-2024 Estimated GFR (MDRD) Non-Af Amer 62 mL/min >60 [facility] Comment on above: Non- GFR Calc Glucose Ql (U)Ordered By: Johnathan Guzman on 09-03-2024 Urine Glucose (UA) Normal mg/dl Normal [facility] Glucose measurementOrdered B y: Megan Montoya on 09-03-2024 Glucose [Mass/Vol] 115 mg/dL High 74-106 [facility] Comment on above: Fasting Glucose resu lt from 100 to 125 mg/dL suggests IMPAIRED HOMEOSTASIS per A.D.A. criteria. Hematocrit Auto (Bld) [Volum e fraction]Ordered By: Megan Montoya on 09-03-2024 Hematocrit (Bld) [Volume fraction] 30.8 % Low 37-47 [facility] Hemoglobin measurementOrdere d By: Megan Montoya on 09-03-2024 Hemoglobin (Bld) [Mass/Vol] 9.5 g/dL Low 12.0-15.0 [facility] Ketones Test strip Ql (U)Ord ered By: Megan Montoya on 09-03-2024 Ketones Ql (U) 5 mg/dl High Negative [facility] MCV (mean corpuscular volume ) determinationOrdered By: Megan Montoya on 09-03-2024 MCV (RBC) [Entitic vol] 83.5 fL 81-99 [facility] Mean corpuscular hemoglobin (MCH) determinationOrdered By: Megan Montoya on 09-03-2024 MCH (RBC) [Entitic mass] 25.7 pg Low 27.0-32.0 [facility] Mean corpuscular hemoglobin concentration (MCHC) determinationOrdered By: Megan Montoya on 09-03-2024 MCHC (RBC) [Mass/Vol] 30.8 g/dL Low 32-36 [facility] Mean platelet volume determi nationOrdered By: Megan Montoya on 09-03-2024 Platelet mean volume (Bld) [Entitic vol] 10.2 fL 6.2-12.0 [facility] Microscopic analysis of urin e for red blood cells (RBC)Ordered By: Megan Montoya on 09-03-2024 Urine RBC 5-10 SEEN /hpf 0-5 [facility] Mucus LM Ql (Urine sed)Order ed By: Megan Montoya on 09-03-2024 Mucus Ql (Urine sed) 1+ /hpf [facility] Nitrite Test strip Ql (U)Ord ered By: Megan Montoya on 09-03-2024 Nitrite Ql (U) Positive High Negative [facility] Platelet countOrdered By: Johnathan Guzman on 09-03-2024 Platelets (Bld) [#/Vol] 431 10*3/uL 150-450 [facility] Potassium measurementOrdered By: Megan Montoya on 09-03-2024 Potassium [Moles/Vol] 4.4 mmol/L 3.5-5.1 [facility] Protein Test strip Ql (U)Ord ered By: Megan Montoya on 09-03-2024 Protein Ql (U) 100 mg/dl High Negative [facility] RBC Auto (Bld) [#/Vol]Ordere d By: Megan Montoya on 09-03-2024 RBC (Bld) [#/Vol] 3.69 10*6/uL Low 4.2-5.4 [facility] Serum anion gap measurementO rdered By: Megan Montoya on 09-03-2024 Anion gap [Moles/Vol] 9 mmol/L 5-15 [facility] Serum or plasma calcium reyna urement (mass/volume)Ordered By: Megan Montoya on 09-03-2024 Calcium [Mass/Vol] 9.4 mg/dL 8.5-10.1 [facility] Serum or plasma creatinine m easurement (mass/volume)Ordered By: Megan Montoya on 09-03-2024 Creatinine [Mass/Vol] 0.92 mg/dL 0.55-1.02 [facility] Comment on above: The validity of the calculated GFR & GFRAA in patients over 70 years has not been determined. Clinical correlation is essential. Serum or plasma urea nitroge n measurement (mass/volume)Ordered By: Megan Montoya on 09-03-2024 Urea nitrogen [Mass/Vol] 19 mg/dL High 7-18 [facility] Sodium levelOrdered By: Juan C Montoya on 09-03-2024 Sodium [Moles/Vol] 139 mmol/L 136-145 [facility] Urine blood detectionOrdered By: Megan Montoya on 09-03-2024 Urine Occult Blood 150 /ul High Negative [facility] Urine clarityOrdered By: Pola Montoya on 09-03-2024 Clarity (U) Cloudy Clear [facility] Urine color determinationOrd ered By: Megan Montoya on 09-03-2024 Color (U) Yellow Yellow [facility] Urine cultureOrdered By: Pola Montoya on 09-03-2024 Bacteria identified Cx Nom (U) Proteus mirabilis Abnormal [facility] Bacteria identified Cx Nom (U) Klebsiella pneumoniae sp pneum Abnormal [facility] Bacteria identified Cx Nom (U) Proteus mirabilis Abnormal [facility] Bacteria identified Cx Nom (U) Klebsiella pneumoniae sp pneum Abnormal [facility] Urine leukocyte esterase det ection by dipstickOrdered By: Megan Montoya on 09-03-2024 Leukocyte esterase Test strip Ql (U) 500 /ul High Negative [facility] Urine pHOrdered By: Megan jimenez on 09-03-2024 pH (U) 6.0 [pH] 5.0 - 8.0 [facility] Urine sediment bacteria coun t by microscopy (number/high power field)Ordered By: Megan Montoya on 09-03-2024 Bacteria LM.HPF (Urine sed) [#/Area] 4 /[HPF] None Seen [facility] Urine specific gravity measu rementOrdered By: Megan Montoya on 09-03-2024 Specific gravity (U) [Rel density] 1.020 1.002-1.030 [facility] Urobilinogen Ql (U)Ordered B y: Megan Montoya on 09-03-2024 Urine Urobilinogen Normal mg/dl Normal [facility] White blood cell (WBC) count Ordered By: Megan Montoya on 09-03-2024 WBC (Bld) [#/Vol] 10.6 10*3/uL 4.4-11.0 [facility] White blood cell countOrdere d By: Megan Montoya on 09-03-2024 Urine WBC 50-100 SEEN /hpf 0-5 [facility] [id number] 08-27-2024 [id number] Patient Choice Patient Name: MEL POP Date of : 1940 Normal [facility] Progress Noteon 08-22-2024 Progress Note Normal [facility] Albumin to globulin ratioOrd ered By: Megan Montoya on 08-20-2024 Albumin/Globulin [Mass ratio] 0.7 {ratio} Low 0.9-2.4 [facility] Bilirubin, totalOrdered By: Megan Montoya on 08-20-2024 Bilirubin [Mass/Vol] 0.60 mg/dL 0.20-1.00 [facility] Comment on above: For patients on eltr ombopag therapy, use of Dimension [place] TBIL is not recommended. Blood urea nitrogen (BUN)/cr eatinine ratioOrdered By: Megan Montoya on 08-20-2024 Urea nitrogen/Creatinine [Mass ratio] 11.2 mg/mg 10-20 [facility] CBC-Complete Blood Cnt No Di ffon 08-20-2024 Erythrocyte distribution width (RBC) [Ratio] 19.2 % High 11.6-14.6 [facility] Comment on above: Performed By: #### L 100.0500, [id number] #### [facility] [address] [place], [address] Hematocrit (Bld) [Volume fraction] 33.4 % Low 37-47 [facility] Comment on above: Performed By: #### L 100.0500, [id number] #### [facility] [address] [place], [address] Hemoglobin (Bld) [Mass/Vol] 10.4 g/dL Low 12.0-15.0 [facility] Comment on above: Performed By: #### L 100.0500, [id number] #### [facility] [address] [place], [address] MCH (RBC) [Entitic mass] 26.3 pg Low 27.0-32.0 [facility] Comment on above: Performed By: #### L 100.0500, [id number] #### [facility] [address] [place], [address] MCHC (RBC) [Mass/Vol] 31.1 g/dL Low 32-36 [facility] Comment on above: Performed By: #### L 100.0500, [id number] #### [facility] [address] [place], [address] MCV (RBC) [Entitic vol] 84.6 fL Normal 81-99 [facility] Comment on above: Performed By: #### L 100.0500, [id number] #### [facility] [address] [place], [address] Platelet mean volume (Bld) [Entitic vol] 9.7 fL Normal 6.2-12.0 [facility] Comment on above: Performed By: #### L 100.0500, [id number] #### [facility] [address] [place], [address] Platelets (Bld) [#/Vol] 405 10*3/uL Normal 150-450 [facility] Comment on above: Performed By: #### L 100.0500, [id number] #### [facility] [address] [place], [address] RBC (Bld) [#/Vol] 3.95 10*6/uL Low 4.2-5.4 [facility] Comment on above: Performed By: #### L 100.0500, [id number] #### [facility] [address] [place], [address] RDW SD 58.9 fl High 35.1-43.9 [facility] Comment on above: Performed By: #### L 100.0500, [id number] #### [facility] [address] [place], [address] WBC (Bld) [#/Vol] 5.9 10*3/uL Normal 4.4-11.0 [facility] Comment on above: Performed By: #### L 100.0500, [id number] #### [facility] [address] [place], [address] Carbon dioxide measurementOr dered By: Megan Montoya on 08-20-2024 CO2 [Moles/Vol] 22.0 mmol/L 21.0-32.0 [facility] Chloride measurementOrdered By: Megan Montoya on 08-20-2024 Chloride [Moles/Vol] 109 mmol/L High 98-107 [facility] Comprehensive Metabolic Prof ilon 08-20-2024 Albumin [Mass/Vol] 2.7 g/dL Low 3.2-5.0 [facility] Comment on above: Performed By: #### L 100.0500, [id number] #### [facility] [address] [place], [address] Albumin/Globulin [Mass ratio] 0.7 {ratio} Low 0.9-2.4 [facility] Comment on above: Performed By: #### L 100.0500, [id number] #### [facility] [address] [place], [address] ALK P 117 U/L Normal 45-117 [facility] Comment on above: Performed By: #### L 100.0500, [id number] #### [facility] [address] [place], [address] ALT [Catalytic activity/Vol] 18 U/L Normal 13-56 [facility] Comment on above: Performed By: #### L 100.0500, [id number] #### [facility] [address] [place], [address] AST [Catalytic activity/Vol] 18 U/L Normal 15-37 [facility] Comment on above: Result Comment: Slig ht Hemolysis, Result may be falsely increased. Performed By: #### L 100.0500, [id number] #### [facility] [address] [place], [address] Bilirubin [Mass/Vol] 0.60 mg/dL Normal 0.20-1.00 [facility] Comment on above: Result Comment: For patients on eltrombopag therapy, use of Dimension [place] TBIL is not recommended. Performed By: #### L 100.0500, [id number] #### [facility] [address] [place], [address] BUN/CRE 11.2 RATIO Normal 10-20 [facility] Comment on above: Performed By: #### L 100.0500, [id number] #### [facility] [address] [place], [address] CA,Total 9.0 mg/dL Normal 8.5-10.1 [facility] Comment on above: Performed By: #### L 100.0500, [id number] #### [facility] [address] [place], [address] Chloride [Moles/Vol] 109 mmol/L High 98-107 [facility] Comment on above: Performed By: #### L 100.0500, [id number] #### [facility] [address] [place], [address] CO2 [Moles/Vol] 22.0 mmol/L Normal 21.0-32.0 [facility] Comment on above: Performed By: #### L 100.0500, [id number] #### [facility] [address] [place], [address] Creatinine [Mass/Vol] 0.98 mg/dL Normal 0.55-1.02 [facility] Comment on above: Result Comment: The validity of the calculated GFR GFRAA in patients over 70 years has not been determined. Clinical correlation is essential. Performed By: #### L 100.0500, [id number] #### [facility] [address] [place], [address] EST GFR - AA 69 mL/min Normal >60 [facility] Comment on above: Result Comment: Afri can [place] GFR Calc Performed By: #### L 100.0500, [id number] #### [facility] [address] [place], [address] GAP 7 Normal 5-15 [facility] Comment on above: Performed By: #### L 100.0500, [id number] #### [facility] [address] [place], [address] GFR/1.73 sq M.predicted among non-blacks MDRD (S/P/Bld) [Vol rate/Area] 57 mL/min/{1.73_m2} Low >60 [facility] Comment on above: Result Comment: Non- GFR Calc Performed By: #### L 100.0500, [id number] #### [facility] [address] [place], [address] Globulin (S) [Mass/Vol] 4.1 g/dL Normal 2.2-4.2 [facility] Comment on above: Performed By: #### L 100.0500, [id number] #### [facility] [address] [place], [address] Glucose [Mass/Vol] 97 mg/dL Normal 74-106 [facility] Comment on above: Performed By: #### L 100.0500, [id number] #### [facility] [address] [place], [address] Potassium [Moles/Vol] 4.2 mmol/L Normal 3.5-5.1 [facility] Comment on above: Result Comment: Slig ht Hemolysis, Result may be falsely increased. Performed By: #### L 100.0500, [id number] #### [facility] [address] [place], [address] Sodium [Moles/Vol] 138 mmol/L Normal 136-145 [facility] Comment on above: Performed By: #### L 100.0500, [id number] #### [facility] [address] [place], [address] T PROT 6.8 g/dL Normal 6.4-8.2 [facility] Comment on above: Performed By: #### L 100.0500, [id number] #### [facility] [address] [place], [address] Urea nitrogen [Mass/Vol] 11 mg/dL Normal 7-18 [facility] Comment on above: Performed By: #### L 100.0500, [id number] #### [facility] [address] [place], [address] Erythrocyte distribution wid th ratioOrdered By: Megan Montoya on 08-20-2024 Erythrocyte distribution width (RBC) [Ratio] 19.2 % High 11.6-14.6 [facility] Erythrocyte distribution wid th standard deviationOrdered By: Megan Montoya on 08-20-2024 Erythrocyte distribution width (RBC) [Entitic vol] 58.9 fL High 35.1-43.9 [facility] Estimated glomerular filtrat ion rate (GFR) AmericanOrdered By: Megan Montoya on 08-20-2024 Estimated GFR (MDRD) Amer 69 mL/min >60 [facility] Comment on above: GFR Calc Glomerular filtration rate ( GFR) estimationOrdered By: Megan Montoya on 08-20-2024 Estimated GFR (MDRD) Non-Af Amer 57 mL/min Low >60 [facility] Comment on above: Non- GFR Calc Glucose measurementOrdered B y: Megan Montoya on 08-20-2024 Glucose [Mass/Vol] 97 mg/dL 74-106 [facility] Hematocrit Auto (Bld) [Volum e fraction]Ordered By: Megan Montoya on 08-20-2024 Hematocrit (Bld) [Volume fraction] 33.4 % Low 37-47 [facility] Hemoglobin measurementOrdere d By: Megan Montoya on 08-20-2024 Hemoglobin (Bld) [Mass/Vol] 10.4 g/dL Low 12.0-15.0 [facility] - Chemistry and C hemistry - challengeOrdered By: Megan Montoya on 08-20-2024 AST [Catalytic activity/Vol] 18 U/L 15-37 [facility] Comment on above: Slight Hemolysis, Re sult may be falsely increased. MCV (mean corpuscular volume ) determinationOrdered By: Megan Montoya on 08-20-2024 MCV (RBC) [Entitic vol] 84.6 fL 81-99 [facility] Mean corpuscular hemoglobin (MCH) determinationOrdered By: Megan Montoya on 08-20-2024 MCH (RBC) [Entitic mass] 26.3 pg Low 27.0-32.0 [facility] Mean corpuscular hemoglobin concentration (MCHC) determinationOrdered By: Megan Montoya on 08-20-2024 MCHC (RBC) [Mass/Vol] 31.1 g/dL Low 32-36 [facility] Mean platelet volume determi nationOrdered By: Megan Montoya on 08-20-2024 Platelet mean volume (Bld) [Entitic vol] 9.7 fL 6.2-12.0 [facility] Platelet countOrdered By: Johnathan Guzman on 08-20-2024 Platelets (Bld) [#/Vol] 405 10*3/uL 150-450 [facility] Potassium measurementOrdered By: Megan Montoya on 08-20-2024 Potassium [Moles/Vol] 4.2 mmol/L 3.5-5.1 [facility] Comment on above: Slight Hemolysis, Re sult may be falsely increased. RBC Auto (Bld) [#/Vol]Ordere d By: Megan Montoya on 08-20-2024 RBC (Bld) [#/Vol] 3.95 10*6/uL Low 4.2-5.4 [facility] Serum anion gap measurementO rdered By: Megan Montoya on 08-20-2024 Anion gap [Moles/Vol] 7 mmol/L 5-15 [facility] Serum globulin measurementOr dered By: Megan Montoya on 08-20-2024 Globulin (S) [Mass/Vol] 4.1 g/dL 2.2-4.2 [facility] Serum or plasma alanine hinojosa otransferase (ALT) measurementOrdered By: Megan Montoya on 08-20-2024 ALT [Catalytic activity/Vol] 18 U/L 13-56 [facility] Serum or plasma albumin reyna urement (mass/volume)Ordered By: Megan Montoya on 08-20-2024 Albumin [Mass/Vol] 2.7 g/dL Low 3.2-5.0 [facility] Serum or plasma alkaline silvia sphatase measurementOrdered By: Megan Montoya on 08-20-2024 ALP [Catalytic activity/Vol] 117 U/L 45-117 [facility] Serum or plasma calcium reyna urement (mass/volume)Ordered By: Megan Montoya on 08-20-2024 Calcium [Mass/Vol] 9.0 mg/dL 8.5-10.1 [facility] Serum or plasma creatinine m easurement (mass/volume)Ordered By: Megan Montoya on 08-20-2024 Creatinine [Mass/Vol] 0.98 mg/dL 0.55-1.02 [facility] Comment on above: The validity of the calculated GFR & GFRAA in patients over 70 years has not been determined. Clinical correlation is essential. Serum or plasma urea nitroge n measurement (mass/volume)Ordered By: Megan Montoya on 08-20-2024 Urea nitrogen [Mass/Vol] 11 mg/dL 7-18 [facility] Sodium levelOrdered By: Juan C Montoya on 08-20-2024 Sodium [Moles/Vol] 138 mmol/L 136-145 [facility] Total proteinOrdered By: Pola Montoya on 08-20-2024 Protein [Mass/Vol] 6.8 g/dL 6.4-8.2 [facility] White blood cell (WBC) count Ordered By: Megan Montoya on 08-20-2024 WBC (Bld) [#/Vol] 5.9 10*3/uL 4.4-11.0 [facility] [id number] 08-16-2024 [id number] Normal [facility] [id number] Normal [facility] [id number] MAR & Discharge med list transmitted to [facility] via Architexaport per TCC request. Electronically signed by JESSICA Leone Normal [facility] [id number] Normal [facility] Laboratory - Chemistry and C hemistry - challengeon 08-16-2024 Glucose [Mass/Vol] 120 mg/dL High 70 - 100 mg/dL [facility] No Panel Informationon 08-16 Interpretation and review of laboratory results Abnormal [facility] Performed by: [facility], [address] [place] [address], [place] [id number] CLIA ID: [id number] [facility] Nursing Noteon 08-16-2024 Nursing Note Patient picked up fo r transfer to [facility] by stretcher. Report already called to GENET Garcia. Normal [facility] Nursing Note Telephone report erin led to GENET Garcia at [facility]. Normal [facility] Progress Noteon 08-16-2024 Progress Note Normal [facility] 30on 08-15-2024 30 Normal [facility] [id number] 08-15-2024 [id number] Authorization is pending with [employer]. Ref# [id number] to be DC'd to [facility]. Dtr Fidel Sharma. CM to follow. Normal [facility] Progress Noteon 08-15-2024 Progress Note Normal [facility] 30on 08-14-2024 30 Normal [facility] [id number] 08-14-2024 [id number] Normal [facility] Progress Noteon 08-14-2024 Progress Note Normal [facility] Progress Note Normal [facility] Progress Note Normal [facility] 30on 08-13-2024 30 Normal [facility] 30 Normal [facility] [id number] 08-13-2024 [id number] Normal [facility] Progress Noteon 08-13-2024 Progress Note Normal [facility] Progress Note Normal [facility] 08-12-2024 30 Normal [facility] Progress Noteon 08-12-2024 Progress Note Normal [facility] 30on 08-11-2024 30 Normal [facility] 30 Normal [facility] [id number] 08-11-2024 [id number] CM noted DC orders i n place, Dgt touring facilities over the weekend. [facility] pending acceptance, updates sent via [employer]RLink. [facility] Progress Noteon 08-11-2024 Progress Note Normal [facility] 30on 08-10-2024 30 Normal [facility] [id number] 08-10-2024 [id number] [facility] Progress Noteon 08-10-2024 Progress Note Normal [facility] [id number] 08-09-2024 [id number] Normal [facility] [id number] Normal [facility] [id number] Updated PT/OT notes placed to SNF [facility] via Careport per TCC request. Await review and response regarding ability to accept. TCC notified. Electronically signed by ADOPTION COUNSELOR Aracelis Gardiner [facility] [phone] Patient is medically ready for dc. PT/OT both continuing to recommend SNF. [facility] group fitness manager asked to start auth. Plan to dc back to [facility] pending auth [facility] Progress Noteon 08-09-2024 Progress Note [facility] [id number] 08-08-2024 [id number] [facility] Progress Noteon 08-08-2024 Progress Note Normal [facility] Progress Note Normal [facility] Progress Note Normal [facility] 30on 08-07-2024 30 Normal [facility] 30 Normal [facility] 30 Normal [facility] [id number] 08-07-2024 [id number] [facility] Progress Noteon 08-07-2024 Progress Note Normal [facility] 30on 08-06-2024 30 Normal [facility] 30 Normal [facility] [id number] 08-06-2024 [id number] Pt cont's on IV AtBs '. Plan is for pt to return to [facility]. Auth and HECTOR needed prior to DC. CM to follow. [facility] [id number] [facility] Comprehensive metabolic 1998 panelon 08-06-2024 Albumin [Mass/Vol] 2.4 g/dL Low 3.4 - 4.8 g/dL [facility] ALP [Catalytic activity/Vol] 72 U/L 40 - 150 U/L [facility] ALT [Catalytic activity/Vol] 24 U/L NINF - 30 U/L [facility] Anion gap [Moles/Vol] 7 mmol/L 3 - 13 mmol/L [facility] AST [Catalytic activity/Vol] 21 U/L NINF - 34 U/L [facility] Bilirubin [Mass/Vol] 0.9 mg/dL NINF - 1.2 mg/dL [facility] Calcium [Mass/Vol] 8.4 mg/dL Low 8.8 - 10. 0 mg/dL [facility] Chloride [Moles/Vol] 115 mmol/L High 98 - 10 7 mmol/L [facility] CO2 [Moles/Vol] 17 mmol/L Low 23 - 31 mmol/L [facility] Creatinine [Mass/Vol] 0.91 mg/dL 0.57 - 1.11 mg/dL [facility] GFR/1.73 sq M.predicted (S/P/Bld) [Vol rate/Area] 62.3 mL/min - PINF [facility] Comment on above: Calculation based on the Chronic Kidney Disease Epidemiology Collaboration (CKD-EPI) equation refit without adjustment for race Glucose [Mass/Vol] 92 mg/dL 82 - 115 mg/dL [facility] Interpretation and review of laboratory results Abnormal [facility] Potassium [Moles/Vol] 3.8 mmol/L 3.5 - 5.1 mmol/L [facility] Comment on above: Plasma potassium chris ues may be up to 0.5 mmol/L lower than serum values. Protein [Mass/Vol] 5.5 g/dL Low 6.4 - 8.3 g/dL [facility] Sodium [Moles/Vol] 139 mmol/L 136 - 145 mmol/L [facility] Urea nitrogen [Mass/Vol] 9 mg/dL 9 - 23 mg/dL [facility] Consulton 08-06-2024 Consult Normal [facility] Progress Noteon 08-06-2024 Progress Note Normal [facility] Progress Note Normal [facility] 30on 08-05-2024 30 Normal [facility] CBC W Auto Differential pane l (Bld)Ordered By: Frank Milligan on 08-05-2024 Basophils (Bld) [#/Vol] 0 10*3/uL 0.0 - 0.2 10*3/uL [facility] Basophils/100 WBC (Bld) 0.3 % 0.0 - 2.0 % [facility] Eosinophils (Bld) [#/Vol] 0.1 10*3/uL 0.0 - 0.5 10*3/uL [facility] Eosinophils/100 WBC (Bld) 1.6 % 0.0 - 6.0 % [facility] [employer] Erythrocyte distribution width (RBC) [Ratio] 18.9 % High 11.5 - 15.0 % [facility] Hematocrit (Bld) [Volume fraction] 33.3 % Low 35.0 - 47.0 % [facility] Hemoglobin (Bld) [Mass/Vol] 10.3 g/dL Low 11.7 - 16.0 g/dL [facility] Immature granulocytes (Bld) [#/Vol] 0.1 10*3/uL High NINF - 0.1 10*3/uL [facility] Immature granulocytes/100 WBC (Bld) 0.7 % 0.0 - 2.0 % [facility] Interpretation and review of laboratory results Abnormal [facility] Lymphocytes (Bld) [#/Vol] 1.1 10*3/uL 1.0 - 4.3 10*3/uL [facility] Lymphocytes/100 WBC (Bld) 15.6 % 15.0 - 45.0 % [facility] MCH (RBC) [Entitic mass] 26 pg 26.0 - 34.0 pg [facility] MCHC (RBC) [Mass/Vol] 30.9 % 30.5 - 36.0 % [facility] MCV (RBC) [Entitic vol] 84.1 fL 77.0 - 99.0 fL [facility] Monocytes (Bld) [#/Vol] 0.7 10*3/uL 0.0 - 0.9 10*3/uL [facility] Monocytes/100 WBC (Bld) 9.9 % 5.0 - 13.0 % [facility] Neutrophils (Bld) [#/Vol] 5.3 10*3/uL 1.8 - 7.5 10*3/uL [facility] Neutrophils/100 WBC (Bld) 71.9 % 38.0 - 82.0 % [facility] Nucleated RBC/100 WBC (Bld) [Ratio] 0 % [facility] Platelet mean volume (Bld) [Entitic vol] 9.2 fL 9.0 - 12.7 fL [facility] [employer] Platelets (Bld) [#/Vol] 235 10*3/uL 140 - 440 10*3/uL [facility] RBC (Bld) [#/Vol] 3.96 10*6/uL 3.80 - 5.2 0 10*6/uL [facility] Health WBC (Bld) [#/Vol] 7.3 10*3/uL 3.6 - 10.7 10*3/uL [facility] CBC W Auto Differential pane l (Bld)Ordered By: Aden Baires on 08-05-2024 Basophils (Bld) [#/Vol] 0 10*3/uL 0.0 - 0.2 10*3/uL [facility] Health Basophils/100 WBC (Bld) 0.3 % 0.0 - 2.0 % [facility] Eosinophils (Bld) [#/Vol] 0.1 10*3/uL 0.0 - 0.5 10*3/uL [facility] Eosinophils/100 WBC (Bld) 1.5 % 0.0 - 6.0 % [facility] Erythrocyte distribution width (RBC) [Ratio] 19.2 % High 11.5 - 15.0 % [facility] Hematocrit (Bld) [Volume fraction] 31.9 % Low 35.0 - 47.0 % [facility] Hemoglobin (Bld) [Mass/Vol] 9.9 g/dL Low 11.7 - 16.0 g/dL [facility] Immature granulocytes (Bld) [#/Vol] 0 10*3/uL NINF - 0.1 10*3/uL [facility] Immature granulocytes/100 WBC (Bld) 0.5 % 0.0 - 2.0 % [facility] Interpretation and review of laboratory results Abnormal [facility] Lymphocytes (Bld) [#/Vol] 1.1 10*3/uL 1.0 - 4.3 10*3/uL [facility] Lymphocytes/100 WBC (Bld) 16.6 % 15.0 - 45.0 % [facility] MCH (RBC) [Entitic mass] 26.2 pg 26.0 - 34.0 pg [facility] MCHC (RBC) [Mass/Vol] 31 % 30.5 - 36.0 % [facility] MCV (RBC) [Entitic vol] 84.4 fL 77.0 - 99.0 fL [facility] Monocytes (Bld) [#/Vol] 0.6 10*3/uL 0.0 - 0.9 10*3/uL [facility] Monocytes/100 WBC (Bld) 9.1 % 5.0 - 13.0 % [facility] Neutrophils (Bld) [#/Vol] 4.7 10*3/uL 1.8 - 7.5 10*3/uL [facility] Neutrophils/100 WBC (Bld) 72 % 38.0 - 82.0 % [facility] Nucleated RBC/100 WBC (Bld) [Ratio] 0 % [facility] Platelet mean volume (Bld) [Entitic vol] 10 fL 9.0 - 12.7 fL [facility] Platelets (Bld) [#/Vol] 242 10*3/uL 140 - 440 10*3/uL [facility] RBC (Bld) [#/Vol] 3.78 10*6/uL Low 3.80 - 5.2 0 10*6/uL [facility] WBC (Bld) [#/Vol] 6.5 10*3/uL 3.6 - 10.7 10*3/uL [facility] CBC WITH AUTO DIFFERENTIALon 08-05-2024 Basophils (Bld) [#/Vol] 0.0 10*3/uL Normal 0.0-0.2 [facility] Comment on above: Performed By: #### L [id number] ####Software Writer: VELMA VALADEZ ([id number])[facility])[address] [place] [address] Basophils/100 WBC (Bld) 0.3 % Normal 0.0-2.0 [facility] Comment on above: Performed By: #### L [id number] ####Software Writer: VELMA VALADEZ ([id number])[facility] ([facility])[address] [place] [address] [place] Eosinophils (Bld) [#/Vol] 0.1 10*3/uL Normal 0.0-0.5 [facility] Comment on above: Performed By: #### L [id number] ####Software Writer: VELMA VALADEZ ([id number])[facility] ([facility])[address] [place] [address] [place] Eosinophils/100 WBC (Bld) 1.6 % Normal 0.0-6.0 [facility] Comment on above: Performed By: #### L [id number] ####Software Writer: VELMA VALADEZ ([id number])[address] Erythrocyte distribution width (RBC) [Ratio] 18.9 % High 11.5-15.0 [facility] Comment on above: Performed By: #### L [id number] ####Software Writer: VELMA VALADEZ ([id number])[address] Hematocrit (Bld) [Volume fraction] 33.3 % Low 35.0-47.0 [facility] Comment on above: Performed By: #### L [id number] ####Software Writer: VELMA VALADEZ ([id number])[address] Hemoglobin (Bld) [Mass/Vol] 10.3 g/dL Low 11.7-16.0 [facility] Comment on above: Performed By: #### L [id number] ####Software Writer: VELMA VALADEZ ([id number])[address] IMMATURE GRANS % 0.7 % Normal 0.0-2.0 [facility] Comment on above: Performed By: #### L [id number] ####Software Writer: VELMA VALADEZ ([id number])[address] IMMATURE GRANS ABSOLUTE 0.1 10*3/uL High <0.1 [facility] Comment on above: Performed By: #### L [id number] ####Software Writer: VELMA VALADEZ ([id number])[address] Lymphocytes (Bld) [#/Vol] 1.1 10*3/uL Normal 1.0-4.3 [facility] Comment on above: Performed By: #### L [id number] ####Software Writer: VELMA VALADEZ ([id number])[facility])[address] [place] [address] Lymphocytes/100 WBC (Bld) 15.6 % Normal 15.0-45.0 [facility] Comment on above: Performed By: #### L [id number] ####Software Writer: VELMA VALADEZ ([id number])[facility])[address] [place] [address] MCH (RBC) [Entitic mass] 26.0 pg Normal 26.0-34.0 [facility] Comment on above: Performed By: #### L [id number] ####Software Writer: VELMA VALADEZ ([id number])[facility])[address] [place] [address] MCHC 30.9 % Normal 30.5-36.0 [facility] Comment on above: Performed By: #### L [id number] ####Software Writer: VELMA VALADEZ ([id number])[facility] ([facility])[address] [place] [address] MCV (RBC) [Entitic vol] 84.1 fL Normal 77.0-99.0 [facility] Comment on above: Performed By: #### L [id number] ####Software Writer: VELMA VALADEZ ([id number])[facility])[address] [place] [address] Monocytes (Bld) [#/Vol] 0.7 10*3/uL Normal 0.0-0.9 [facility] Comment on above: Performed By: #### L [id number] ####Software Writer: VELMA VALADEZ ([id number])[facility])[address] [place] [address] Monocytes/100 WBC (Bld) 9.9 % Normal 5.0-13.0 [facility] Comment on above: Performed By: #### L [id number] ####Software Writer: VELMA VALADEZ ([id number])[facility])[address] [place] [address] NEUTROPHILS ABSOLUTE 5.3 10*3/uL Normal 1.8-7.[address] [facility] Comment on above: Performed By: #### L [id number] ####Software Writer: VELMA VALADEZ ([id number])[facility] ([facility])[address] [place] [address] Neutrophils/100 WBC (Bld) 71.9 % Normal 38.0-82.0 [facility] Comment on above: Performed By: #### L [id number] ####Software Writer: VELMA VALADEZ ([id number])[facility] ([facility])[address] [place] [address] NRBC 0.0 /100 WBCs Normal 0.0-2.0 [facility] Comment on above: Performed By: #### L [id number] ####Software Writer: VELMA VALADEZ ([id number])[facility] ([facility])[address] [place] [address] Platelet mean volume (Bld) [Entitic vol] 9.2 fL Normal 9.0-12.7 [facility] Comment on above: Performed By: #### L [id number] ####Software Writer: VELMA VALADEZ ([id number])[facility] ([facility])[address] [place] [address] Platelets (Bld) [#/Vol] 235 10*3/uL Normal 140-440 [facility] Comment on above: Performed By: #### L [id number] ####Software Writer: VELMA VALADEZ ([id number])[facility] ([facility])[address] [place] [address] RBC (Bld) [#/Vol] 3.96 10*6/uL Normal 3.80-5.20 [facility] Comment on above: Performed By: #### L [id number] ####Software Writer: VELMA VALADEZ ([id number])[facility] ([facility])[address] [place] [address] [place] WBC (Bld) [#/Vol] 7.3 10*3/uL Normal 3.6-10.7 [facility] Comment on above: Performed By: #### L [id number] ####Software Writer: VELMA VALADEZ ([id number])[facility])[address] [place] [address] Basophils (Bld) [#/Vol] 0.0 10*3/uL Normal 0.0-0.2 [facility] Comment on above: Performed By: #### L [id number] ####Software Writer: VELMA VALADEZ ([id number])[facility] ([facility])[address] [place] [address] Basophils/100 WBC (Bld) 0.3 % Normal 0.0-2.0 [facility] Comment on above: Performed By: #### L [id number] ####Software Writer: VELMA VALADEZ ([id number])[facility])[address] [place] [address] Eosinophils (Bld) [#/Vol] 0.1 10*3/uL Normal 0.0-0.5 [facility] Comment on above: Performed By: #### L [id number] ####Software Writer: VELMA VALADEZ ([id number])[facility])[address] [place] [address] Eosinophils/100 WBC (Bld) 1.5 % Normal 0.0-6.0 [facility] Comment on above: Performed By: #### L [id number] ####Software Writer: VELMA VALADEZ ([id number])[facility])[address] [place] [address] Erythrocyte distribution width (RBC) [Ratio] 19.2 % High 11.5-15.0 [facility] Comment on above: Performed By: #### L [id number] ####Software Writer: VELMA VALADEZ ([id number])[facility])[address] [place] [address] Hematocrit (Bld) [Volume fraction] 31.9 % Low 35.0-47.0 [facility] Comment on above: Performed By: #### L [id number] ####Software Writer: VELMA VALADEZ ([id number])[facility])[address] [place] [address] Hemoglobin (Bld) [Mass/Vol] 9.9 g/dL Low 11.7-16.0 [facility] Comment on above: Performed By: #### L [id number] ####Software Writer: VELMA VALADEZ ([id number])[facility])[address] [place] [address] IMMATURE GRANS % 0.5 % Normal 0.0-2.0 [facility] Comment on above: Performed By: #### L [id number] ####Software Writer: VELMA VALADEZ ([id number])[facility])[address] [place] [address] IMMATURE GRANS ABSOLUTE 0.0 10*3/uL Normal <0.1 [facility] Comment on above: Performed By: #### L [id number] ####Software Writer: VELMA VALADEZ ([id number])[facility])[address] [place] [address] Lymphocytes (Bld) [#/Vol] 1.1 10*3/uL Normal 1.0-4.3 [facility] Comment on above: Performed By: #### L [id number] ####Software Writer: VELMA VALADEZ ([id number])[facility])[address] [place] [address] Lymphocytes/100 WBC (Bld) 16.6 % Normal 15.0-45.0 [facility] Comment on above: Performed By: #### L [id number] ####Software Writer: VELMA VALADEZ ([id number])[facility])[address] [place] [address] MCH (RBC) [Entitic mass] 26.2 pg Normal 26.0-34.0 [facility] Comment on above: Performed By: #### L [id number] ####Software Writer: VELMA [id number])[facility] ([facility])[address] [place] [address] MCHC 31.0 % Normal 30.5-36.0 [facility] Comment on above: Performed By: #### L [id number] ####Software Writer: VELMA VALADEZ ([id number])[facility] ([facility])[address] [place] [address] MCV (RBC) [Entitic vol] 84.4 fL Normal 77.0-99.0 [facility] Comment on above: Performed By: #### L [id number] ####Software Writer: VELMA VALADEZ ([id number])[facility] ([facility])[address] [place] [address] Monocytes (Bld) [#/Vol] 0.6 10*3/uL Normal 0.0-0.9 [facility] Comment on above: Performed By: #### L [id number] ####Software Writer: VELMA VALADEZ ([id number])[facility] ([facility])[address] [place] [address] Monocytes/100 WBC (Bld) 9.1 % Normal 5.0-13.0 [facility] Comment on above: Performed By: #### L [id number] ####Software Writer: VELMA VALADEZ ([id number])[facility] ([facility])[address] [place] [address] NEUTROPHILS ABSOLUTE 4.7 10*3/uL Normal 1.8-7.[address] [facility] Comment on above: Performed By: #### L [id number] ####Software Writer: VELMA VALADEZ ([id number])[facility] ([facility])[address] [place] [address] Neutrophils/100 WBC (Bld) 72.0 % Normal 38.0-82.0 [facility] Comment on above: Performed By: #### L [id number] ####Software Writer: VELMA VALADEZ ([id number])[facility] ([facility])[address] [place] [address] NRBC 0.0 /100 WBCs Normal 0.0-2.0 [facility] Comment on above: Performed By: #### L [id number] ####Software Writer: VELMA VALADEZ ([id number])[facility])[address] [place] [address] Platelet mean volume (Bld) [Entitic vol] 10.0 fL Normal 9.0-12.7 [facility] Comment on above: Performed By: #### L [id number] ####Software Writer: VELMA VALADEZ ([id number])[facility] ([facility])[address] [place] [address] Platelets (Bld) [#/Vol] 242 10*3/uL Normal 140-440 [facility] Comment on above: Performed By: #### L [id number] ####Software Writer: VELMA VALADEZ ([id number])[facility])[address] [place] [address] RBC (Bld) [#/Vol] 3.78 10*6/uL Low 3.80-5.20 [facility] Comment on above: Performed By: #### L [id number] ####Software Writer: VELMA VALADEZ ([id number])[facility])[address] [place] [address] WBC (Bld) [#/Vol] 6.5 10*3/uL Normal 3.6-10.7 [facility] Comment on above: Performed By: #### L [id number] ####Software Writer: VELMA VALADEZ ([id number])[facility] ([facility])[address] [place] [address] COMPREHENSIVE METABOLIC PANE Gilberto 08-05-2024 Albumin [Mass/Vol] 2.4 g/dL Low 3.4-4.8 [facility] Comment on above: Performed By: #### L [id number] ####Software Writer: VELMA VALADEZ ([id number])[facility])[address] [place] [address] ALP [Catalytic activity/Vol] 72 U/L Normal 40-150 [facility] Comment on above: Performed By: #### L [id number] ####Software Writer: VELMA VALADEZ ([phone])[facility])[address] [place] [address] ALT [Catalytic activity/Vol] 24 U/L Normal <30 [facility] Comment on above: Performed By: #### L [id number] ####Software Writer: VELMA VALADEZ ([id number])[facility])[address] [place] [address] Anion gap [Moles/Vol] 7 mmol/L Normal 3-[address] [facility] Comment on above: Performed By: #### L [id number] ####Software Writer: VELMA VALADEZ ([id number])[facility])[address] [place] [address] AST [Catalytic activity/Vol] 21 U/L Normal <34 [facility] Comment on above: Performed By: #### L [id number] ####Software Writer: VELMA VALADEZ ([id number])[facility] ([facility])[address] [place] [address] Bilirubin [Mass/Vol] 0.9 mg/dL Normal <1.2 [facility] Comment on above: Performed By: #### L [id number] ####Software Writer: VELMA VALADEZ ([id number])[facility] ([facility])[address] [place] [address] Calcium [Mass/Vol] 8.4 mg/dL Low 8.8-10.0 [facility] Comment on above: Performed By: #### L [id number] ####Software Writer: VELMA VALADEZ ([id number])[facility] ([facility])[address] [place] [address] [place] Chloride [Moles/Vol] 115 mmol/L High 98-107 [facility] Comment on above: Performed By: #### L [id number] ####Software Writer: VELMA VALADEZ ([id number])[facility] ([facility])[address] [place] [address] [place] CO2 [Moles/Vol] 17 mmol/L Low 23-31 [facility] Comment on above: Performed By: #### L [id number] ####Software Writer: VELMA VALADEZ ([id number])[facility])[address] [place] [address] Creatinine [Mass/Vol] 0.91 mg/dL Normal 0.57-1.[address] [facility] Comment on above: Performed By: #### L [id number] ####Software Writer: VELMA VALADEZ ([id number])[facility])[address] [place] [address] [place] GLOMERULAR FILTRATION RATE ML/MIN/1.73 SQ M.PREDICTED 62.3 mL/min/1.73m*2 Normal >60.0 [facility] Comment on above: Result Comment: Calc ulation based on the Chronic Kidney Disease Epidemiology Collaboration (CKD-EPI) equation refit without adjustment for race Performed By: #### L [id number] ####Software Writer: VELMA VALADEZ ([phone])[facility] ([facility])[address] [place] [address] [place] Glucose [Mass/Vol] 92 mg/dL Normal 82-115 [facility] Comment on above: Performed By: #### L [id number] ####Software Writer: VELMA VALADEZ ([id number])[facility])[address] [place] [address] [place] Potassium [Moles/Vol] 3.8 mmol/L Normal 3.5-5.[address] [facility] Comment on above: Result Comment: [facility] potassium values may be up to 0.5 mmol/L lower than serum values. Performed By: #### L [id number] ####Software Writer: VELMA VALADEZ ([id number])[facility] ([facility])[address] [place] [address] [place] Protein [Mass/Vol] 5.5 g/dL Low 6.4-8.3 [facility] Comment on above: Performed By: #### L [id number] ####Software Writer: VELMA VALADEZ ([id number])[facility])[address] [place] [address] Sodium [Moles/Vol] 139 mmol/L Normal 136-145 [facility] Comment on above: Performed By: #### L [id number] ####Software Writer: VELMA VALADEZ ([id number])[facility])[address] [place] [address] Urea nitrogen [Mass/Vol] 9 mg/dL Normal 9-23 [facility] Comment on above: Performed By: #### L [id number] ####Software Writer: VELMA VALADEZ ([id number])[facility] ([facility])[address] [place] [address] Albumin [Mass/Vol] 2.3 g/dL Low 3.4-4.8 [facility] Comment on above: Performed By: #### L [id number] ####Software Writer: VELMA VALADEZ ([id number])[facility] ([facility])[address] [place] [address] ALP [Catalytic activity/Vol] 74 U/L Normal 40-150 [facility] Comment on above: Performed By: #### L [id number] ####Software Writer: VELMA VALADEZ ([id number])[facility])[address] [place] [address] ALT [Catalytic activity/Vol] 27 U/L Normal <30 [facility] Comment on above: Performed By: #### L [id number] ####Software Writer: VELMA VALADEZ ([id number])[facility])[address] [place] [address] Anion gap [Moles/Vol] 5 mmol/L Normal 3-[address] [facility] Comment on above: Performed By: #### L [id number] ####Software Writer: VELMA VALADEZ ([id number])[facility])[address] [place] [address] AST [Catalytic activity/Vol] 24 U/L Normal <34 [facility] Comment on above: Performed By: #### L [id number] ####Software Writer: VELMA [id number])[facility] [place] [address] Bilirubin [Mass/Vol] 0.6 mg/dL Normal <1.2 [facility] Comment on above: Performed By: #### L [id number] ####Software Writer: VELMA VALADEZ ([id number])[facility] ([facility])[address] [place] [address] Calcium [Mass/Vol] 8.1 mg/dL Low 8.8-10.0 [facility] Comment on above: Performed By: #### L [id number] ####Software Writer: VELMA VALADEZ ([id number])[facility])[address] [place] [address] Chloride [Moles/Vol] 108 mmol/L High 98-107 [facility] Comment on above: Performed By: #### L [id number] ####Software Writer: VELMA VALADEZ ([id number])[facility])[address] [place] [address] CO2 [Moles/Vol] 21 mmol/L Low 23-31 [facility] Comment on above: Performed By: #### L [id number] ####Software Writer: VELMA VALADEZ ([id number])[facility])[address] [place] [address] Creatinine [Mass/Vol] 0.89 mg/dL Normal 0.57-1.[address] [facility] Comment on above: Performed By: #### L [id number] ####Software Writer: VELMA VALADEZ ([id number])[facility] ([facility])[address] [place] [address] GLOMERULAR FILTRATION RATE ML/MIN/1.73 SQ M.PREDICTED 64.0 mL/min/1.73m*2 Normal >60.0 [facility] Comment on above: Result Comment: Calc ulation based on the Chronic Kidney Disease Epidemiology Collaboration (CKD-EPI) equation refit without adjustment for race Performed By: #### L [id number] ####Software Writer: VELMA VALADEZ ([id number])[facility] ([facility])[address] [place] [address] Glucose [Mass/Vol] 85 mg/dL Normal 82-115 [facility] Comment on above: Performed By: #### L [id number] ####Software Writer: VELMA VALADEZ ([id number])[facility])[address] [place] [address] Potassium [Moles/Vol] 3.8 mmol/L Normal 3.5-5.[address] [facility] Comment on above: Result Comment: [facility] potassium values may be up to 0.5 mmol/L lower than serum values. Performed By: #### L AB17 ####Software Writer: VELMA VALADEZ ([id number])[facility])[address] [place] [address] Protein [Mass/Vol] 5.2 g/dL Low 6.4-8.3 [facility] Comment on above: Performed By: #### L [id number] ####Software Writer: VELMA VALADEZ ([id number])[facility] ([facility])[address] [place] [address] Sodium [Moles/Vol] 134 mmol/L Low 136-145 [facility] Comment on above: Performed By: #### L [id number] ####Software Writer: VELMA VALADEZ ([id number])[facility])[address] [place] [address] Urea nitrogen [Mass/Vol] 13 mg/dL Normal 9-23 [facility] Comment on above: Performed By: #### L [id number] ####Software Writer: VELMA VALADEZ ([id number])[facility])[address] [place] [address] Comprehensive metabolic 1998 panelon 08-05-2024 Albumin [Mass/Vol] 2.3 g/dL Low 3.4 - 4.8 g/dL [facility] ALP [Catalytic activity/Vol] 74 U/L 40 - 150 U/L [facility] ALT [Catalytic activity/Vol] 27 U/L NINF - 30 U/L [facility] Anion gap [Moles/Vol] 5 mmol/L 3 - 13 mmol/L [facility] AST [Catalytic activity/Vol] 24 U/L NINF - 34 U/L [facility] Bilirubin [Mass/Vol] 0.6 mg/dL NINF - 1.2 mg/dL [facility] Calcium [Mass/Vol] 8.1 mg/dL Low 8.8 - 10. 0 mg/dL [facility] Chloride [Moles/Vol] 108 mmol/L High 98 - 10 7 mmol/L [facility] CO2 [Moles/Vol] 21 mmol/L Low 23 - 31 mmol/L [facility] Creatinine [Mass/Vol] 0.89 mg/dL 0.57 - 1.11 mg/dL [facility] GFR/1.73 sq M.predicted (S/P/Bld) [Vol rate/Area] 64 mL/min - PINF [facility] Comment on above: Calculation based on the Chronic Kidney Disease Epidemiology Collaboration (CKD-EPI) equation refit without adjustment for race Glucose [Mass/Vol] 85 mg/dL 82 - 115 mg/dL [facility] Interpretation and review of laboratory results Abnormal [facility] Potassium [Moles/Vol] 3.8 mmol/L 3.5 - 5.1 mmol/L [facility] Comment on above: Plasma potassium chris ues may be up to 0.5 mmol/L lower than serum values. Protein [Mass/Vol] 5.2 g/dL Low 6.4 - 8.3 g/dL [facility] Sodium [Moles/Vol] 134 mmol/L Low 136 - 145 mmol/L [facility] Urea nitrogen [Mass/Vol] 13 mg/dL 9 - 23 mg/dL [facility] Progress Noteon 08-05-2024 Progress Note Normal [facility] Progress Note Normal [facility] 30on 08-04-2024 30 Normal [facility] 30 Normal [facility] CBC W Auto Differential pane l (Bld)Ordered By: Deivka Eisenberg on 08-04-2024 Basophils (Bld) [#/Vol] 0 10*3/uL 0.0 - 0.2 10*3/uL [facility] Basophils/100 WBC (Bld) 0.2 % 0.0 - 2.0 % [facility] Eosinophils (Bld) [#/Vol] 0.1 10*3/uL 0.0 - 0.5 10*3/uL [facility] Eosinophils/100 WBC (Bld) 1.4 % 0.0 - 6.0 % [facility] [employer] Erythrocyte distribution width (RBC) [Ratio] 19.3 % High 11.5 - 15.0 % [facility] Hematocrit (Bld) [Volume fraction] 33 % Low 35.0 - 47.0 % [facility] Hemoglobin (Bld) [Mass/Vol] 10 g/dL Low 11.7 - 16.0 g/dL [facility] [employer] Immature granulocytes (Bld) [#/Vol] 0 10*3/uL NINF - 0.1 10*3/uL [facility] Health Immature granulocytes/100 WBC (Bld) 0.5 % 0.0 - 2.0 % [facility] Interpretation and review of laboratory results Abnormal [facility] Lymphocytes (Bld) [#/Vol] 1 10*3/uL 1.0 - 4.3 10*3/uL [facility] Health Lymphocytes/100 WBC (Bld) 17.7 % 15.0 - 45.0 % [facility] MCH (RBC) [Entitic mass] 25.8 pg Low 26.0 - 34.0 pg [facility] MCHC (RBC) [Mass/Vol] 30.3 % Low 30.5 - 36.0 % [facility] MCV (RBC) [Entitic vol] 85.1 fL 77.0 - 99.0 fL [facility] Monocytes (Bld) [#/Vol] 0.5 10*3/uL 0.0 - 0.9 10*3/uL [facility] Health Monocytes/100 WBC (Bld) 9.5 % 5.0 - 13.0 % [facility] Neutrophils (Bld) [#/Vol] 3.9 10*3/uL 1.8 - 7.5 10*3/uL [facility] Health Neutrophils/100 WBC (Bld) 70.7 % 38.0 - 82.0 % [facility] Nucleated RBC/100 WBC (Bld) [Ratio] 0 % [facility] Platelet mean volume (Bld) [Entitic vol] 9.8 fL 9.0 - 12.7 fL [facility] Platelets (Bld) [#/Vol] 280 10*3/uL 140 - 440 10*3/uL [facility] RBC (Bld) [#/Vol] 3.88 10*6/uL 3.80 - 5.2 0 10*6/uL [facility] WBC (Bld) [#/Vol] 5.6 10*3/uL 3.6 - 10.7 10*3/uL [facility] CBC WITH AUTO DIFFERENTIALon 08-04-2024 Basophils (Bld) [#/Vol] 0.0 10*3/uL Normal 0.0-0.2 [facility] Comment on above: Performed By: #### L [id number] ####Software Writer: VELMA VALADEZ ([id number])[facility] ([facility])[address] [place] [address] Basophils/100 WBC (Bld) 0.2 % Normal 0.0-2.0 [facility] Comment on above: Performed By: #### L [id number] ####Software Writer: VELMA VALADEZ ([id number])[facility])[address] [place] [address] Eosinophils (Bld) [#/Vol] 0.1 10*3/uL Normal 0.0-0.5 [facility] Comment on above: Performed By: #### L [id number] ####Software Writer: VELMA VALADEZ ([id number])[facility])[address] [place] [address] Eosinophils/100 WBC (Bld) 1.4 % Normal 0.0-6.0 [facility] Comment on above: Performed By: #### L [id number] ####Software Writer: VELMA VALADEZ ([id number])[facility])[address] [place] [address] Erythrocyte distribution width (RBC) [Ratio] 19.3 % High 11.5-15.0 [facility] Comment on above: Performed By: #### L [id number] ####Software Writer: VELMA VALADEZ ([id number])[facility])[address] [place] [address] Hematocrit (Bld) [Volume fraction] 33.0 % Low 35.0-47.0 [facility] Comment on above: Performed By: #### L [id number] ####Software Writer: VELMA VALADEZ ([id number])[facility])[address] [place] [address] Hemoglobin (Bld) [Mass/Vol] 10.0 g/dL Low 11.7-16.0 [facility] Comment on above: Performed By: #### L [id number] ####Software Writer: VELMA VALADEZ ([id number])[facility])[address] [place] [address] IMMATURE GRANS % 0.5 % Normal 0.0-2.0 [facility] Comment on above: Performed By: #### L [id number] ####Software Writer: VELMA VALADEZ ([id number])[facility])[address] [place] [address] IMMATURE GRANS ABSOLUTE 0.0 10*3/uL Normal <0.1 [facility] Comment on above: Performed By: #### L [id number] ####Software Writer: VELMA VALADEZ ([id number])[facility])[address] [place] [address] Lymphocytes (Bld) [#/Vol] 1.0 10*3/uL Normal 1.0-4.3 [facility] Comment on above: Performed By: #### L [id number] ####Software Writer: VELMA VALADEZ ([id number])[facility])[address] [place] [address] Lymphocytes/100 WBC (Bld) 17.7 % Normal 15.0-45.0 [facility] Comment on above: Performed By: #### L [id number] ####Software Writer: VELMA VALADEZ ([id number])[facility])[address] [place] [address] MCH (RBC) [Entitic mass] 25.8 pg Low 26.0-34.0 [facility] Comment on above: Performed By: #### L [id number] ####Software Writer: VELMA [id number])[facility] ([facility])[address] [place] [address] MCHC 30.3 % Low 30.5-36.0 [facility] Comment on above: Performed By: #### L [id number] ####Software Writer: VELMA VALADEZ ([id number])[facility] ([facility])[address] [place] [address] MCV (RBC) [Entitic vol] 85.1 fL Normal 77.0-99.0 [facility] Comment on above: Performed By: #### L [id number] ####Software Writer: VELMA VALADEZ ([id number])[facility] ([facility])[address] [place] [address] Monocytes (Bld) [#/Vol] 0.5 10*3/uL Normal 0.0-0.9 [facility] Comment on above: Performed By: #### L [id number] ####Software Writer: VELMA VALADEZ ([id number])[facility] ([facility])[address] [place] [address] Monocytes/100 WBC (Bld) 9.5 % Normal 5.0-13.0 [facility] Comment on above: Performed By: #### L [id number] ####Software Writer: VELMA VALADEZ ([id number])[facility] ([facility])[address] [place] [address] NEUTROPHILS ABSOLUTE 3.9 10*3/uL Normal 1.8-7.[address] [facility] Comment on above: Performed By: #### L [id number] ####Software Writer: VELMA VALADEZ ([id number])[facility] ([facility])[address] [place] [address] Neutrophils/100 WBC (Bld) 70.7 % Normal 38.0-82.0 [facility] Comment on above: Performed By: #### L [id number] ####Software Writer: VELMA VALADEZ ([id number])[facility] ([facility])[address] [place] [address] NRBC 0.0 /100 WBCs Normal 0.0-2.0 [facility] Comment on above: Performed By: #### L [id number] ####Software Writer: VELMA VALADEZ ([id number])[facility])[address] [place] [address] Platelet mean volume (Bld) [Entitic vol] 9.8 fL Normal 9.0-12.7 [facility] Comment on above: Performed By: #### L [id number] ####Software Writer: VELMA VALADEZ ([id number])[facility] ([facility])[address] [place] [address] Platelets (Bld) [#/Vol] 280 10*3/uL Normal 140-440 [facility] Comment on above: Performed By: #### L [id number] ####Software Writer: VELMA VALADEZ ([id number])[facility])[address] [place] [address] RBC (Bld) [#/Vol] 3.88 10*6/uL Normal 3.80-5.20 [facility] Comment on above: Performed By: #### L [id number] ####Software Writer: VELMA VALADEZ ([id number])[facility])[address] [place] [address] WBC (Bld) [#/Vol] 5.6 10*3/uL Normal 3.6-10.7 [facility] Comment on above: Performed By: #### L [id number] ####Software Writer: VELMA VALADEZ ([id number])[facility] ([facility])[address] [place] [address] COMPREHENSIVE METABOLIC PANE Gilberto 08-04-2024 Albumin [Mass/Vol] 2.3 g/dL Low 3.4-4.8 [facility] Comment on above: Performed By: #### L [id number] ####Software Writer: VELMA VALADEZ ([id number])[facility])[address] [place] [address] ALP [Catalytic activity/Vol] 68 U/L Normal 40-150 [facility] Comment on above: Performed By: #### L [id number] ####Software Writer: VELMA VALADEZ ([id number])[facility] ([facility])[address] [place] [address] ALT [Catalytic activity/Vol] 26 U/L Normal <30 [facility] Comment on above: Performed By: #### L [id number] ####Software Writer: VELMA VALADEZ ([id number])[facility] ([facility])[address] [place] [address] Anion gap [Moles/Vol] 6 mmol/L Normal 3-[address] [facility] Comment on above: Performed By: #### L [id number] ####Software Writer: VELMA VALADEZ ([id number])[facility])[address] [place] [address] AST [Catalytic activity/Vol] 25 U/L Normal <34 [facility] Comment on above: Performed By: #### L [id number] ####Software Writer: VELMA VALADEZ ([id number])[facility] ([facility])[address] [place] [address] Bilirubin [Mass/Vol] 0.5 mg/dL Normal <1.2 [facility] Comment on above: Performed By: #### L [id number] ####Software Writer: VELMA VALADEZ ([id number])[facility] ([facility])[address] [place] [address] Calcium [Mass/Vol] 8.2 mg/dL Low 8.8-10.0 [facility] Comment on above: Performed By: #### L [id number] ####Software Writer: VELMA VALADEZ ([phone])[facility] ([facility])[address] [place] [address] [place] Chloride [Moles/Vol] 112 mmol/L High 98-107 [facility] Comment on above: Performed By: #### L [id number] ####Software Writer: VELMA VALADEZ ([id number])[facility] ([facility])[address] [place] [address] [place] CO2 [Moles/Vol] 21 mmol/L Low 23-31 [facility] Comment on above: Performed By: #### L [id number] ####Software Writer: VELMA VALADEZ ([id number])[facility])[address] [place] [address] Creatinine [Mass/Vol] 1.13 mg/dL High 0.57-1.[address] [facility] Comment on above: Performed By: #### L [id number] ####Software Writer: VELMA VALADEZ ([id number])[facility])[address] [place] [address] GLOMERULAR FILTRATION RATE ML/MIN/1.73 SQ M.PREDICTED 48.1 mL/min/1.73m*2 Low >60.0 [facility] Comment on above: Result Comment: Calc ulation based on the Chronic Kidney Disease Epidemiology Collaboration (CKD-EPI) equation refit without adjustment for race Performed By: #### L [id number] ####Software Writer: VELMA VALADEZ ([id number])[facility] ([facility])[address] [place] [address] Glucose [Mass/Vol] 153 mg/dL High 82-115 [facility] Comment on above: Performed By: #### L [id number] ####Software Writer: VELMA VALADEZ ([id number])[facility])[address] [place] [address] Potassium [Moles/Vol] 3.9 mmol/L Normal 3.5-5.[address] [facility] Comment on above: Result Comment: [facility] potassium values may be up to 0.5 mmol/L lower than serum values. Performed By: #### L [id number] ####Software Writer: VELMA VALADEZ ([id number])[facility] ([facility])[address] [place] [address] Protein [Mass/Vol] 5.2 g/dL Low 6.4-8.3 [facility] Comment on above: Performed By: #### L [id number] ####Software Writer: VELMA VALADEZ ([id number])[facility] ([facility])[address] [place] [address] Sodium [Moles/Vol] 139 mmol/L Normal 136-145 [facility] Comment on above: Performed By: #### L [id number] ####Software Writer: VELMA VALADEZ ([id number])[facility] ([facility] [place] [address] Urea nitrogen [Mass/Vol] 26 mg/dL High 9-23 [facility] Comment on above: Performed By: #### L [id number] ####Software Writer: VELMA VALADEZ ([id number])[facility] ([facility])[address] [place] [address] Comprehensive metabolic 1998 panelon 08-04-2024 Albumin [Mass/Vol] 2.3 g/dL Low 3.4 - 4.8 g/dL [facility] ALP [Catalytic activity/Vol] 68 U/L 40 - 150 U/L [facility] ALT [Catalytic activity/Vol] 26 U/L NINF - 30 U/L [facility] Anion gap [Moles/Vol] 6 mmol/L 3 - 13 mmol/L [facility] AST [Catalytic activity/Vol] 25 U/L NINF - 34 U/L [facility] Bilirubin [Mass/Vol] 0.5 mg/dL NINF - 1.2 mg/dL [facility] Calcium [Mass/Vol] 8.2 mg/dL Low 8.8 - 10. 0 mg/dL [facility] Chloride [Moles/Vol] 112 mmol/L High 98 - 10 7 mmol/L [facility] CO2 [Moles/Vol] 21 mmol/L Low 23 - 31 mmol/L [facility] Creatinine [Mass/Vol] 1.13 mg/dL High 0.57 - 1.11 mg/dL [facility] GFR/1.73 sq M.predicted (S/P/Bld) [Vol rate/Area] 48.1 mL/min Low - PINF [facility] Comment on above: Calculation based on the Chronic Kidney Disease Epidemiology Collaboration (CKD-EPI) equation refit without adjustment for race Glucose [Mass/Vol] 153 mg/dL High 82 - 115 mg/dL [facility] Interpretation and review of laboratory results Abnormal [facility] Potassium [Moles/Vol] 3.9 mmol/L 3.5 - 5.1 mmol/L [facility] Comment on above: Plasma potassium chris ues may be up to 0.5 mmol/L lower than serum values. Protein [Mass/Vol] 5.2 g/dL Low 6.4 - 8.3 g/dL [facility] Sodium [Moles/Vol] 139 mmol/L 136 - 145 mmol/L [facility] Urea nitrogen [Mass/Vol] 26 mg/dL High 9 - 23 mg/dL [facility] Nursing Noteon 08-04-2024 Nursing Note Bedside swallow completed. Pt passed and tolerated well tolerated well. Normal [facility] Progress Noteon 08-04-2024 Progress Note Normal [facility] 30on 08-03-2024 30 Normal [facility] 30 Normal [facility] 30 Normal [facility] [id number] 08-03-2024 [id number] Normal [facility] BASIC METABOLIC PANELon 07-18 Anion gap [Moles/Vol] 6 mmol/L Normal 3-[address] [facility] Comment on above: Performed By: #### L AB15 ####Software Writer: VELMA VALADEZ ([id number])[facility] ([facility])[address] [place] [address] Calcium [Mass/Vol] 8.5 mg/dL Low 8.8-10.0 [facility] Comment on above: Performed By: #### L AB15 ####Software Writer: VELMA VALADEZ ([id number])[facility] ([facility])[address] [place] [address] [place] Chloride [Moles/Vol] 105 mmol/L Normal 98-107 [facility] Comment on above: Performed By: #### L AB15 ####Software Writer: EVLMA VALADEZ ([id number])[facility] ([facility])[address] [place] [address] [place] CO2 [Moles/Vol] 27 mmol/L Normal 23-31 [facility] Comment on above: Performed By: #### L AB15 ####Software Writer: VELMA VALADEZ ([id number])[facility] ([address] Creatinine [Mass/Vol] 1.18 mg/dL High 0.57-1.[address] [facility] Comment on above: Performed By: #### L AB15 ####Software Writer: VELMA VALADEZ ([id number])[facility])[address] [place] [address] GLOMERULAR FILTRATION RATE ML/MIN/1.73 SQ M.PREDICTED 45.6 mL/min/1.73m*2 Low >60.0 [facility] Comment on above: Result Comment: Calc ulation based on the Chronic Kidney Disease Epidemiology Collaboration (CKD-EPI) equation refit without adjustment for race Performed By: #### L AB15 ####Software Writer: VELMA VALADEZ ([id number])[address] Glucose [Mass/Vol] 100 mg/dL Normal 82-115 [facility] Comment on above: Performed By: #### L AB15 ####Software Writer: VELMA VALADEZ ([id number])[address] Potassium [Moles/Vol] 4.7 mmol/L Normal 3.5-5.[address] [facility] Comment on above: Result Comment: [facility] potassium values may be up to 0.5 mmol/L lower than serum values. Performed By: #### L AB15 ####Software Writer: VELMA VALADEZ ([id number])[facility])[address] [place] [address] Sodium [Moles/Vol] 138 mmol/L Normal 136-145 [facility] Comment on above: Performed By: #### L AB15 ####Software Writer: VELMA [id number])[address] Urea nitrogen [Mass/Vol] 33 mg/dL High 9-23 [facility] Comment on above: Performed By: #### L AB15 ####Software Writer: VELMA [id number])[facility] [place] [address] Basic metabolic 1998 panelOr dered By: Juni Millard on 08-03-2024 Anion gap [Moles/Vol] 6 mmol/L 3 - 13 mmol/L [facility] Calcium [Mass/Vol] 8.5 mg/dL Low 8.8 - 10. 0 mg/dL [facility] Chloride [Moles/Vol] 105 mmol/L 98 - 10 7 mmol/L [facility] CO2 [Moles/Vol] 27 mmol/L 23 - 31 mmol/L [facility] Creatinine [Mass/Vol] 1.18 mg/dL High 0.57 - 1.11 mg/dL [facility] GFR/1.73 sq M.predicted (S/P/Bld) [Vol rate/Area] 45.6 mL/min Low - PINF [facility] Comment on above: Calculation based on the Chronic Kidney Disease Epidemiology Collaboration (CKD-EPI) equation refit without adjustment for race Glucose [Mass/Vol] 100 mg/dL 82 - 115 mg/dL [facility] Interpretation and review of laboratory results Abnormal [facility] Potassium [Moles/Vol] 4.7 mmol/L 3.5 - 5.1 mmol/L [facility] Comment on above: Plasma potassium chris ues may be up to 0.5 mmol/L lower than serum values. Sodium [Moles/Vol] 138 mmol/L 136 - 145 mmol/L [facility] Urea nitrogen [Mass/Vol] 33 mg/dL High 9 - 23 mg/dL [facility] CBC W Auto Differential pane l (Bld)Ordered By: Christin Mayes on 08-03-2024 Erythrocyte distribution width (RBC) [Ratio] 19.4 % High 11.5 - 15.0 % [facility] Hematocrit (Bld) [Volume fraction] 38.7 % 35.0 - 47.0 % [facility] Hemoglobin (Bld) [Mass/Vol] 12.1 g/dL 11.7 - 16.0 g/dL [facility] MCH (RBC) [Entitic mass] 26 pg 26.0 - 34.0 pg [facility] MCHC (RBC) [Mass/Vol] 31.3 % 30.5 - 36.0 % [facility] MCV (RBC) [Entitic vol] 83.2 fL 77.0 - 99.0 fL [facility] Nucleated RBC/100 WBC (Bld) [Ratio] 0 % [facility] Platelet mean volume (Bld) [Entitic vol] 9.8 fL 9.0 - 12.7 fL [facility] Comment on above: MPV is a calculated measurement using platelet volume ratio Platelets (Bld) [#/Vol] 303 10*3/uL 140 - 440 10*3/uL [facility] RBC (Bld) [#/Vol] 4.65 10*6/uL 3.80 - 5.2 0 10*6/uL [facility] WBC (Bld) [#/Vol] 9.1 10*3/uL 3.6 - 10.7 10*3/uL [facility] CBC WITH AUTO DIFFERENTIALon 08-03-2024 Erythrocyte distribution width (RBC) [Ratio] 19.4 % High 11.5-15.0 [facility] Comment on above: Performed By: #### Weston [id number], [id number] ####Software Writer: VELMA VALADEZ ([id number])[facility] [facility] (RL[facility])[address] [place] [address] Hematocrit (Bld) [Volume fraction] 38.7 % Normal 35.0-47.0 [facility] Comment on above: Performed By: #### Weston [id number], [id number] ####Software Writer: VELMA VALADEZ ([id number])[facility] Medical [employer] ([facility])[address] [place] [address] Hemoglobin (Bld) [Mass/Vol] 12.1 g/dL Normal 11.7-16.0 [facility] Comment on above: Performed By: #### L [id number], [id number] ####Software Writer: VELMA VALADEZ ([id number])[facility] [employer] ([facility])[address] [place] [address] MCH (RBC) [Entitic mass] 26.0 pg Normal 26.0-34.0 [facility] Comment on above: Performed By: #### L [id number], [id number] ####Software Writer: VELMA VALADEZ ([id number])[facility]ITAL[facility] (SW[facility])[address] MCHC 31.3 % Normal 30.5-36.0 [facility] Comment on above: Performed By: #### L [id number], [id number] ####Software Writer: VELMA VALADEZ ([id number])[facility] [place] [place] ([facility])[address] [place] [address] MCV (RBC) [Entitic vol] 83.2 fL Normal 77.0-99.0 [facility] Comment on above: Performed By: #### L [id number], [id number] ####Software Writer: VELMA VALADEZ ([id number])[facility] ([facility])[address] [place] [address] NRBC 0.0 /100 WBCs Normal 0.0-2.0 [facility] Comment on above: Performed By: #### L [id number], [id number] ####Software Writer: VELMA VALADEZ ([id number])[facility]ITAL[facility] [place] ([facility])[address] [place] [address] Platelet mean volume (Bld) [Entitic vol] 9.8 fL Normal 9.0-12.7 [facility] Comment on above: Result Comment: MPV is a calculated measurement using platelet volume ratio Performed By: #### L [id number], [id number] ####Software Writer: VELMA VALADEZ ([id number])[facility]ITAL[facility] [place] [facility] ([facility])[address] [place] [address] [place] Platelets (Bld) [#/Vol] 303 10*3/uL Normal 140-440 [facility] Comment on above: Performed By: #### L [id number], [id number] ####Software Writer: VELMA VALADEZ ([id number])[facility]ITAL[facility] [place] [facility] ([facility])[address] [place] [address] [place] RBC (Bld) [#/Vol] 4.65 10*6/uL Normal 3.80-5.20 [facility] Comment on above: Performed By: #### L [id number], [id number] ####Software Writer: VELMA VALADEZ ([id number])[facility]ITAL[facility] [place] (SWRL[facility])[address] WBC (Bld) [#/Vol] 9.1 10*3/uL Normal 3.6-10.7 [facility] Comment on above: Performed By: #### Weston [id number], [id number] ####Software Writer: VELMA VALADEZ ([id number])[facility]ITAL[facility] [place] (SWRL[facility])[address] [place] [address] COMPREHENSIVE METABOLIC PANE Gilberto 08-03-2024 Albumin [Mass/Vol] 2.8 g/dL Low 3.4-4.8 [facility] Comment on above: Performed By: #### Weston AB17, [id number], LAB99 ####Software Writer: VELMA VALADEZ ([id number])[facility]ITAL[facility] [place] (SWRL[facility])[address] [place] [address] ALP [Catalytic activity/Vol] 82 U/L Normal 40-150 [facility] Comment on above: Performed By: #### L AB17, [id number], LAB99 ####Software Writer: VELMA VALADEZ ([id number])[facility]ITAL[facility] [place] ([facility])[address] ALT [Catalytic activity/Vol] 26 U/L Normal <30 [facility] Comment on above: Performed By: #### L AB17, [id number], LAB99 ####Software Writer: VELMA VALADEZ ([id number])[facility]ITAL[facility] [place] [facility] ([facility])[address] Anion gap [Moles/Vol] 9 mmol/L Normal 3-[address] [facility] Comment on above: Performed By: #### L AB17, [id number], LAB99 ####Software Writer: VELMA VALADEZ ([id number])[facility]ITALA [place]ELA [facility] (SWRL[facility])[address] [place] [address] [place] AST [Catalytic activity/Vol] 36 U/L High <34 [facility] Comment on above: Result Comment: TCSi gnificant interference from hemolysis. Result integrity compromised. Interpret with caution. Performed By: #### Weston AB17, [id number], LAB99 ####Software Writer: VELMA VALADEZ ([id number])[facility]ITALA [place]A [facility] (SWRL[facility])[address] Bilirubin [Mass/Vol] 0.7 mg/dL Normal <1.2 [facility] Comment on above: Performed By: #### Weston REIS17, [id number], LAB99 ####Software Writer: VELMA VALADEZ ([id number])[facility]ITALSim[facility] SANCHEZROSANGELA [facility] (SWRL[facility])[address] [place] [address] [place] Calcium [Mass/Vol] 9.0 mg/dL Normal 8.8-10.0 [facility] Comment on above: Performed By: #### Weston HOLLY, [id number], LAB99 ####Software Writer: VELMA VALADEZ ([id number])[facility]A [place] (SWRL[facility])[address] [place] [address] [place] Chloride [Moles/Vol] 109 mmol/L High 98-107 [facility] Comment on above: Performed By: #### Weston REIS17, [id number], LAB99 ####Software Writer: VELMA VALADEZ ([id number])[facility] [place] [facility] (SWRL[facility])[address] [place] [address] [place] CO2 [Moles/Vol] 21 mmol/L Low 23-31 [facility] Comment on above: Performed By: #### L AB17, [id number], LAB99 ####Software Writer: VELMA VALADEZ ([id number])[facility] [place] [facility] (SWRL[facility])[address] [place] [address] [place] Creatinine [Mass/Vol] 1.30 mg/dL High 0.57-1.[address] [facility] Comment on above: Performed By: #### Weston HOLLY, [id number], LAB99 ####Software Writer: VELMA VALADEZ ([id number])[facility]ITALSim[facility] [place] (SWRL[facility])[address] [place] [address] GLOMERULAR FILTRATION RATE ML/MIN/1.73 SQ M.PREDICTED 40.6 mL/min/1.73m*2 Low >60.0 [facility] Comment on above: Result Comment: Calc ulation based on the Chronic Kidney Disease Epidemiology Collaboration (CKD-EPI) equation refit without adjustment for race Performed By: #### Weston HOLLY, [id number], LAB99 ####Software Writer: VELMA VALADEZ ([id number])[facility]ITALSim[facility] [place] (SW[facility])[address] [place] [address] Glucose [Mass/Vol] 103 mg/dL Normal 82-115 [facility] Comment on above: Performed By: #### Weston HOLLY, [id number], LAB99 ####Software Writer: VELMA VALADEZ ([id number])[facility]ITAL[facility] [place] ([facility])[address] [place] [address] Potassium [Moles/Vol] 5.9 mmol/L High 3.5-5.[address] [facility] Comment on above: Result Comment: TCSi gnificant interference from hemolysis. Result integrity compromised. Interpret with caution. Performed By: #### Weston HOLLY, [id number], LAB99 ####Software Writer: VELMA VALADEZ ([id number])[facility]ITAL[facility] [place] ([facility])[address] [place] [address] Protein [Mass/Vol] 6.7 g/dL Normal 6.4-8.3 [facility] Comment on above: Result Comment: TCPo tential interference from hemolysis Performed By: #### Weston REIS17, [id number], LAB99 ####Software Writer: VELMA VALADEZ ([id number])[facility]ITAL[facility] ([facility])[address] [place] [address] Sodium [Moles/Vol] 139 mmol/L Normal 136-145 [facility] Comment on above: Performed By: #### L AB17, [id number], LAB99 ####Software Writer: VELMA VALADEZ ([id number])[facility] (SW[facility])[address] Urea nitrogen [Mass/Vol] 34 mg/dL High 9-23 [facility] Comment on above: Performed By: #### L AB17, [id number], LAB99 ####Software Writer: VELMA VALADEZ ([id number])[facility] (SWRL[facility])[address] ABDOMEN PELVIS WO IV CONT [...] [facility] 1940 [id number] Exam Date/Time: 08/03/2024 03:05 Procedure: CT ABDOMEN [...] Lymph nodes: Unremarkable. No enlarged lymph nodes. [facility] Ming Fry MD - 08/03/2024 [facility] Name: [facility] POP : 1940 [id number] Exam Date/Time: 08/03/2024 03:05 Procedure: CT ABDOMEN [...] Date/Time: 08/03/2024 4:05 AM EST [facility] [employer] Radiology Study observation (narrative) [facility] alth CT Abdomen and Pelvis WO con trastOrdered By: Ming Fry on 08-03-2024 [facility] [employer] Work Phone: Comprehensive metabolic 1998 panelon 08-03-2024 Albumin [Mass/Vol] 2.8 g/dL Low 3.4 - 4.8 g/dL [facility] [employer] ALP [Catalytic activity/Vol] 82 U/L 40 - 150 U/L [facility] [employer] ALT [Catalytic activity/Vol] 26 U/L NINF - 30 U/L [facility] [employer] Anion gap [Moles/Vol] 9 mmol/L 3 - 13 mmol/L [facility] [employer] AST [Catalytic activity/Vol] 36 U/L High [facility] - 34 U/L [facility] [employer] Comment on above: TC Significant interference from hemolysis. Result integrity compromised. Interpret with caution. Bilirubin [Mass/Vol] 0.7 mg/dL NINF - 1.2 mg/dL [facility] [employer] Calcium [Mass/Vol] 9 mg/dL 8.8 - 10. 0 mg/dL [facility] Chloride [Moles/Vol] 109 mmol/L High 98 - 10 7 mmol/L [facility] CO2 [Moles/Vol] 21 mmol/L Low 23 - 31 mmol/L [facility] Creatinine [Mass/Vol] 1.3 mg/dL High 0.57 - 1.11 mg/dL [facility] GFR/1.73 sq M.predicted (S/P/Bld) [Vol rate/Area] 40.6 mL/min Low - PINF [facility] Comment on above: Calculation based on the Chronic Kidney Disease Epidemiology Collaboration (CKD-EPI) equation refit without adjustment for race Glucose [Mass/Vol] 103 mg/dL 82 - 115 mg/dL [facility] Interpretation and review of laboratory results Abnormal [facility] Potassium [Moles/Vol] 5.9 mmol/L High 3.5 - 5.1 mmol/L [facility] Comment on above: TC Significant interference from hemolysis. Result integrity compromised. Interpret with caution. Protein [Mass/Vol] 6.7 g/dL 6.4 - 8.3 g/dL [facility] Comment on above: TC Potential interference from hemolysis Sodium [Moles/Vol] 139 mmol/L 136 - 145 mmol/L [facility] Urea nitrogen [Mass/Vol] 34 mg/dL High 9 - 23 mg/dL [facility] ED Nursing Noteon 08-03-2024 ED Nursing Note Pt placed in roundtrip Normal [facility] ED Nursing Note ED CT and ED xray notified that patient is ready Normal [facility] ED Provider Noteon ED Provider Note Normal [facility] GASTROINTESTINAL PCR PANELon 08-03-2024 GASTROINTESTINAL PCR PANEL Normal [facility] Comment on above: Performed By: #### L [id number] ####Software Writer: VELMA VALADEZ ([id number])[facility] ([facility])[address] [place] [address] Gastrointestinal pathogens p masoud OXANA+probe (Stl)Ordered By: Maximus Dimas on 08-03-2024 Adenovirus F 40/41 Not detected Not Detected [facility] Astrovirus Not detected Not Detected [facility] Campylobacter Not detected Not Detected [facility] Cryptosporidium Not detected Not Detected [facility] Cyclospora cayetanensis Not detected Not Detected [facility] Entamoeba histolytica Not detected Not Detected [facility] Enterotoxigenic E coli (ETEC) Not detected Not Detected [facility] Giardia lamblia Not detected Not Detected [facility] Interpretation and review of laboratory results Abnormal [facility] Norovirus GI/GII Detected Abnormal Not Detected [facility] Plesiomonas shigelloides Not detected Not Detected [facility] Rotavirus A Not detected Not Detected [facility] Salmonella Not detected Not Detected [facility] Sapovirus Not detected Not Detected [facility] Shiga toxin-producing E coli (STEC) Not detected Not Detected [facility] Shigella/Enteroinvasive E coli (EIEC) Not detected Not Detected [facility] Vibrio cholerae Not detected Not Detected [facility] Vibrio species Not detected Not Detected [facility] Yersinia enterocolitica Not detected Not Detected [facility] A positive Norovirus result on the Film Array GI panel should be interpreted in the context of the patient's history and clinical picture. If results are not consistent, result should be confirmed with a Norovirus specific assay. Methodology: Multiplex PCR [facility] LACTIC ACID WITH REFLEXon Lactate [Moles/Vol] 1.9 mmol/L Normal 0.5-2.2 [facility] Comment on above: Performed By: #### L [id number] ####Software Writer: VELMA VALADEZ ([id number])[facility] ([facility] LIPASEon 08-03-2024 Lipase [Catalytic activity/Vol] 8 U/L Normal <55 [facility] Comment on above: Performed By: #### L AB17, [id number], LAB99 ####Software Writer: VELMA VALADEZ ([id number])[facility] (SWRL[facility])[address] [place] [address] Laboratory - Chemistry and C hemistry - challengeon 08-03-2024 Lactate [Moles/Vol] 1.9 mmol/L 0.5 - 2. 2 mmol/L [facility] Anion gap (Bld) [Moles/Vol] 8 mmol/L 3.00 - 13.00 [facility] Calcium.ionized (Bld) [Moles/Vol] 4.7 mg/dl 4.30 - 5.20 mg/dl [facility] Chloride [Moles/Vol] 107 mmol/L 98 - 11 4 mmol/L [facility] CO2 [Moles/Vol] 23 mmol/L 21 - 29 mmol/L [facility] Creatinine [Mass/Vol] 1.3 mg/dL 0.6 - 1.3 mg/dL [facility] GFR/1.73 sq M.predicted CKD-EPI (S/P/Bld) [Vol rate/Area] 40.6 [facility] Comment on above: KDIGO guidelines pro [...] 118 mg/dL High 70 - 100 mg/dL [facility] Potassium [Moles/Vol] 4.3 mmol/L 3.4 - 5.1 mmol/L [facility] Sodium [Moles/Vol] 138 mmol/L 133 - 145 mmol/L [facility] Urea (Bld) [Mass/Vol] 33 mg/dL High 4 - 22 mg/dL [facility] Lipase [Catalytic activity/Vol] 8 U/L NINF - 55 U/L [facility] Magnesium [Mass/Vol] 1.9 mg/dL 1.6 - 2 .6 mg/dL [facility] Laboratory - Microbiology an d Antimicrobial susceptibilityon 08-03-2024 FLUAV RNA OXANA+probe Ql (Resp) Not detected Not Detected [facility] FLUBV RNA OXANA+probe Ql (Resp) Not detected Not Detected [facility] RSV RNA OXANA+probe Ql (Resp) Not detected Not Detected [facility] SARS-CoV-2 (COVID-19) RNA OXANA+probe Ql (Resp) Not detected Not Detected [facility] SARS-CoV-2 (COVID-19) RNA OXANA+probe Ql (Unsp spec) Methodology: real-time, RT-PCR The SARS-CoV-2, Flu A/B, and RSV Combo assay is intended for in vitro diagnostic use under the FDA Emergency Use Authorization (EUA). This test has not been FDA cleared or approved. In compliance with this authorization, please visit www.fda.gov/media/09232 5/download or www.fda.gov/media/34036 6/download to access the applicable information sheets. [facility] MAGNESIUMon 08-03-2024 Magnesium [Mass/Vol] 1.9 mg/dL Normal 1.6-2.6 [facility] Comment on above: Result Comment: BUBBA R COMMENTS:Higher values can be expected in females during menses. Performed By: #### L AB17, [id number], LAB99 ####Software Writer: VELMA VALADEZ ([id number])[facility] [address] [employer] (SWRLAB)[address] [place] [address] MANUAL DIFFERENTIALon 2024 BASOPHILS (10*3/UL) IN BLOOD BY MANUAL COUNT 0.0 10*3/uL Normal 0.0-0.2 [facility] Comment on above: Performed By: #### L [id number], [id number] ####Software Writer: VELMA VALADEZ ([id number])[facility] HOSPITALPacket [facility] (SWRLAB)[address] [place] [address] [place] BASOPHILS TOTAL PER COUNTED LEUKOCYTES BY MANUAL COUNT 0 Normal [facility] Comment on above: Performed By: #### L [id number], [id number] ####Software Writer: VELMA VALADEZ ([id number])[facility] [place] [employer] (SWRL[facility])[address] [place] [address] [place] BASOPHILS/100 LEUKOCYTES IN BLOOD BY MANUAL COUNT 0 % Normal 0-2 [facility] Comment on above: Performed By: #### L [id number], [id number] ####Software Writer: VELMA VALADEZ ([id number])[facility] [employer] (SWRL[facility])[address] [place], [place] [address] [place] CELLS COUNTED TOTAL (#) IN BLOOD 100 Normal [facility] Comment on above: Performed By: #### L [id number], [id number] ####Software Writer: VELMA VALADEZ ([id number])[facility] (SWRL[facility])[address] [place] [address] [place] DIFFERENTIAL METHOD Automated differenti al reported after manual slide review Normal [facility] Comment on above: Performed By: #### L [id number], [id number] ####Software Writer: VELMA VALADEZ ([id number])[facility] ORSANGELA RITTMAN (SWRLAB)[address] [place] [address] [place] EOSINOPHILS (10*3/UL) IN BLOOD BY MANUAL COUNT 0.1 10*3/uL Normal 0.0-0.5 [facility] Comment on above: Performed By: #### Weston [id number], [id number] ####Software Writer: VELMA VALADEZ ([id number])[facility] ROSANGELA RITTMAN (SWRLAB)[address] [place] [address] [place] EOSINOPHILS TOTAL PER COUNTED LEUKOCYTES BY MANUAL COUNT 1 Normal 0-1 [facility] Comment on above: Performed By: #### Weston [id number], [id number] ####Software Writer: VELMA VALADEZ ([id number])TIFFANYA ROSANGELA RITTMAN (SWRLAB)[address] [place] [address] [place] EOSINOPHILS/100 LEUKOCYTES IN BLOOD BY MANUAL COUNT 1 % Normal 0-6 [facility] Comment on above: Performed By: #### L [id number], [id number] ####Software Writer: VELMA VALADEZ ([id number])[facility] ROSANGELA RITTMAN (SWRLAB)[address] [place] [address] [place] LEUKOCYTE MORPHOLOGY FINDING IN BLOOD Normal Normal [facility] Comment on above: Performed By: #### L [id number], [id number] ####Software Writer: VELMA VALADEZ ([id number])[facility] ROSANGELA RITTMAN (SWRLAB)[address] [place] [address] [place] LEUKOCYTES (10*3/UL) NUCLEATED ERYTHROCYTE ADJUST 9.1 10*3/uL Normal 3.6-10.7 [facility] Comment on above: Performed By: #### L [id number], [id number] ####Software Writer: VELMA VALADEZ ([id number])[facility] ROSANGELA RITTMAN (SWRLAB)[address] [place] [address] [place] LYMPHOCYTES (10*3/UL) IN BLOOD BY MANUAL COUNT 0.5 10*3/uL Low 1.0-4.3 [facility] Comment on above: Performed By: #### L [id number], [id number] ####Software Writer: VELMA VALADEZ ([id number])[facility] ROSANGELA RITTMAN (SWRLAB)[address] [place] [address] [place] LYMPHOCYTES TOTAL PER COUNTED LEUKOCYTES BY MANUAL COUNT 5 Normal [facility] Comment on above: Performed By: #### Weston [id number], [id number] ####Software Writer: VELMA VALADEZ ([id number])[facility] ROSANGELA RITTMAN (SWRLAB)[address] [place] [address] [place] LYMPHOCYTES/100 LEUKOCYTES IN BLOOD BY MANUAL COUNT 5 % Low 15-45 [facility] Comment on above: Performed By: #### L [id number], [id number] ####Software Writer: VELMA VALADEZ ([id number])[facility]ITALSimran SANCHEZROSANGELA RITTMAN (SWRLAB)[address] [place] [address] [place] MONOCYTES (10*3/UL) IN BLOOD BY MANUAL COUNT 0.5 10*3/uL Normal 0.0-0.9 [facility] Comment on above: Performed By: #### L [id number], [id number] ####Software Writer: VELMA VALADEZ ([id number])[facility] ROSANGELA RITTMAN (SWRLAB)[address] [place] [address] [place] MONOCYTES TOTAL PER COUNTED LEUKOCYTES BY MANUAL COUNT 6 Normal [facility] Comment on above: Performed By: #### L [id number], [id number] ####Software Writer: VELMA VALADEZ ([id number])INNA ADAMES RITTMAN (SWRLAB)[address] [place] [address] [place] MONOCYTES/100 LEUKOCYTES IN BLOOD BY MANUAL COUNT 6 % Normal 5-13 [facility] Comment on above: Performed By: #### L [id number], [id number] ####Software Writer: VELMA VALADEZ ([id number])TIFFANYA ROSANGELA RITTMAN (SWRLAB)[address] [place] [address] [place] NEUTROPHILS (SEGS+BANDS) (10*3/UL) BY MANUAL COUNT 7.9 10*3/uL High 1.8-7.0 [facility] Comment on above: Performed By: #### L [id number], [id number] ####Software Writer: VELMA VALADEZ ([id number])[facility]OS[facility]ITALSimran ADAMES RITTMAN (SWRLAB)[address] [place] [address] [place] NEUTROPHILS TOTAL PER COUNTED LEUKOCYTES BY MANUAL COUNT 87 Normal [facility] Comment on above: Performed By: #### L [id number], [id number] ####Software Writer: VELMA VALADEZ ([id number])[facility]ITALSimran SANCHEZROSANGELA RITTMAN (SWRLAB)[address] [place] [address] [place] PLATELET MORPHOLOGY IN BLOOD Normal Normal [facility] Comment on above: Performed By: #### L [id number], [id number] ####Software Writer: VELMA VALADEZ ([id number])[facility] ROSANGELA RITTMAN (SWRLAB)[address] [place] [address] [place] RBC MORPHOLOGY IN BLOOD Normal Normal [facility] Comment on above: Performed By: #### L [id number], [id number] ####Software Writer: VELMA VALADEZ ([id number])[facility]OS[facility]ITALSimran SANCHEZROSANGELA RITTMAN (SWRLAB)[address] [place] [address] [place] SEGEMENTED NEUTROPHILS/100 LEUKOCYTES BY MANUAL COUNT 87 % High 38-82 [facility] Comment on above: Performed By: #### L [id number], [id number] ####Software Writer: VELMA VALADEZ ([id number])[facility] ROSANGELA RITTMAN (SWRLAB)[address] [place] [address] [place] UNCLASSIFIED CELLS (10*3/UL) IN BLOOD BY MANUAL COUNT 0.1 10*3/uL Normal [facility] Comment on above: Performed By: #### L [id number], [id number] ####Software Writer: VELMA VALADEZ ([id number])[facility] ROSANGELA RITTMAN (SWRLAB)[address] [place] [address] [place] UNCLASSIFIED CELLS/100 LEUKOCYTES IN BLOOD 1.00 % Normal [facility] Comment on above: Performed By: #### L [id number], [id number] ####Software Writer: VELMA VALADEZ ([id number])[facility] ROSANGELA RITTMAN (SWRLAB)[address] [place] [address] [place] Magnesium [Mass/Vol]on 08-03 Higher values can be expected in females during menses. [email or web address] Manual differential performe d Ql (Bld)on 08-03-2024 Basophils (Bld) [#/Vol] 0 10*3/uL 0.0 - 0.2 10*3/uL [email or web address] Basophils Manual 0 [facility] alth Basophils/100 WBC (Bld) 0 % 0 - 2 % S [facility] Cells Counted Total (Bld) [#] 100 {cells} [facility] [employer] Differential Method Automated differenti al reported after manual slide review [facility] [employer] Eosinophils (Bld) [#/Vol] 0.1 10*3/uL 0.0 - 0.5 10*3/uL [email or web address] Eosinophils Manual 1 0 - 1 [facility] [employer] Eosinophils/100 WBC (Bld) 1 % 0 - 6 % [facility] [employer] Leukocyte morphology finding Nom (Bld) Normal [facility] [employer] Lymphocytes (Bld) [#/Vol] 0.5 10*3/uL Low 1.0 - 4.3 10*3/uL [facility] [employer] Lymphocytes Manual 5 [facility] [employer] Lymphocytes/100 WBC (Bld) 5 % Low 15 - 45 % [facility] [employer] Monocytes (Bld) [#/Vol] 0.5 10*3/uL 0.0 - 0.9 10*3/uL [facility] Monocytes Manual 6 [facility] alth Monocytes/100 WBC (Bld) 6 % 5 - 13 % S [facility] Neutrophils (Bld) [#/Vol] 7.9 10*3/uL High 1.8 - 7.0 10*3/uL [facility] Neutrophils Manual 87 [facility] Platelet morphology finding Nom (Bld) Normal [facility] RBC morphology finding Nom (Bld) Normal [facility] Segmented neutrophils/100 WBC (Bld) 87 % High 38 - 82 % [facility] Unclassified Cells % 1 % [facility] Unclassified Cells, Abs. 0.1 10*3/uL [facility] WBC corrected for nucl RBC (Bld) [#/Vol] 9.1 10*3/uL 3.6 - 10.7 10*3/uL [facility] No Panel Informationon 08-03 Interpretation and review of laboratory results Normal [facility] Interpretation and review of laboratory results Abnormal [facility] Performed by: [facility], [address] [place] [address] CLIA ID: [id number] [facility] Interpretation and review of laboratory results Normal [facility] No Panel InformationOrdered By: Christin Mayes on 08-03-2024 Interpretation and review of laboratory results Abnormal [facility] SARS-COV-2, FLU A/B, AND RSV COMBOon 08-03-2024 SARS-CoV-2 (COVID-19) RNA OXANA+probe Ql (Unsp spec) Normal [facility] Comment on above: Performed By: #### L [id number] ####Software Writer: VELMA VALADEZ ([id number])[facility]OS[facility]ITALSimran BAUTISTA (SWRLAB)[address] [place] [address] SARS-CoV-2, Flu A/B, and RSV Comboon 08-03-2024 Interpretation and review of laboratory results Normal [facility] XR Chest Single viewon 08-03 No acute [...] within the right humerus. No acute fracture. [facility] Ming Fry MD - 08/03/2024 Patient [...] Report Dictated on Electronically Signed By: Ming rFy MD Electronically Signed Date/Time: 08/03/2024 3:33 AM EST [facility] Radiology Study observation (narrative) [facility] alth XR Chest Single viewOrdered By: Ming Fry on 08-03-2024 [facility] Work Phone: ANES POSTPROC EVALon 025 ANES POSTPROC EVAL HNO ID: [id number] Author: ROBINSON BRUNNER MD Service: ? Author Type: Anesthesiologist Type: Anesthesia Postprocedure Evaluation Filed: 07/31/2024 12:48 Note Text: POST ANESTHESIA EVALUATION NOTE : 1940 Procedure Summary Date: 07/27/24 Room / Location: [address] Anesthesia Start: 1114 Anesthesia Stop: 1322 [...] with this procedure. Documented by Mikhail Nichols APRN.DIRECTOR OF MARKETING OPERATIONS 07/27/2024 1:22 PM EST SIGNATURE: Robinson Pizano MD PATIENT NAME: Mel Castillo DATE: July 31, 2024 TIME: 12:46 PM CSN: [id number] [facility] ANES PRE-OPon 07-27-2024 ANES PRE-OP HNO ID: [id number] Author: ROBINSON BRUNNER MD Service: ? Author Type: Anesthesiologist Type: Anesthesia Preprocedure Evaluation Filed: 07/27/2024 11:10 Note Text: ANESTHESIOLOGY DAY OF SURGERY NOTE : 1940 Procedure Information Date/Time: 07/27/24 1110 Procedures: VITRECTOMY 25G [facility] PARS PLANA APPROACH W/ REMOVAL OF PRERETINAL CELLULAR MEMBRANE (Right: Eye) RELEASE OF VITREOUS, CHOROIDAL FLUID, PARS PLANA APPROACH (Right: Eye) Location: [place] [address] / [facility] Surgeons: Savana Lopez MD Estimated body mass index is 26.09 kg/m? as calculated from the following: Height as of 07/15/24: 162.6 cm (5' 4). Weight as of 07/15/24: 68.9 kg (152 [...] and consent discussed: yes. Patient / Responsible Republican agrees to proceed: yes Patient / Surrogate [...] tiotropium 2.5 (more content not included)... Normal [facility] OPERATIVE NOon 07-27-2024 OPERATIVE NO HNO ID: [id number] Author: SAVANA LOPEZ MD Service: Ophthalmology Author Type: Physician Type: Operative Report Filed: 07/27/2024 13:20 Note Text: [place] [address] [place] OPERATIVE REPORT LOG ID: [id number] Surgery/Procedure Date: 07/27/2024 Incision/Procedure Start Time: 11:39 AM Incision Close/Procedure End Time: 1:07 PM NAME: Mel Serna [facility] #: [id number] SURGEON(S) AND INSTRUMENT DESIGNER(S): Surgeons and Role: Panel 1: * Savana [...] was repaired by the use of max epic ambulatory analysts forceps and vitreous cutter. This was a [...] times thro (more content not included)... Normal [facility] BSCAN OD (RIGHT EYE)on 07-[address] [facility] Right eye Photo documentatio non 07-24-[address] [facility] BSCAN OD (RIGHT EYE)on 07-23 Radiology Study observation (narrative) [facility] Right eye Photo documentatio non 07-23-2024 Radiology Study observation (narrative) [facility] CASE MANAGEMon 07-18-2024 CASE MANAGEM HNO ID: [id number] Author: DOMINIQUE RAMSAY LSW Service: ? Author Type: Property Portfolio Officer Type: Care Mgt Progress Note Filed: 07/18/2024 [...] Arrangements: Ambulance Transportation Agency and Phone #:: [facility] [phone] Date of Trip: 07/18/24 Time of Trip: 1100 Type of Service: BLS Non-emergency Handoff Communication: Handoff to: Primary Care Physician Primary Care Physician Name/Phone: Jared Evans Additional Information: Discharge Information Row Name Admission (Current) from 07/07/2024 in [facility] H060 Custodial Facility Agency [address] [address] Patient d/c ready to [facility] via [facility] with pickling machine operator scheduled for 11am today by Stretcher. Patient aware of plan. Bedside RN aware of plan and provided number to call report for nurse report; call [phone] :) Chairperson Anesthesiology can transfer you to the 2nd floor. . 7000 and DC instructions sent to [facility] via [employer] and are in DC packet. DC packet in chart to go with patient. SIGNATURE: SHAQUILLE Garay PATIENT NAME: Mel Castillo DATE: July 18, 2024 TIME: 11:19 AM Normal [facility] CBC panel Auto (Bld)on 07-18 Erythrocyte distribution width (RBC) [Ratio] 17.5 % High 11.5-15.0 [facility] Comment on above: Order Comment: Speci men Type: BLOOD SPECIMEN Ordering Facility: [facility] Address: [address] [place] [address] Performed By: #### 5 8410-2 #### [facility] CLIA [id number] [address] [place] [address] [place] Hematocrit (Bld) [Volume fraction] 33.8 % Low 36.0-46.0 [facility] Comment on above: Order Comment: Speci men Type: BLOOD SPECIMEN Ordering Facility: [facility] Address: [address] [place] [address] Performed By: #### 5 8410-2 #### [facility] CLIA [id number] [address] [place] [address] [place] Hemoglobin (Bld) [Mass/Vol] 10.5 g/dL Low 11.5-15.5 [facility] Comment on above: Order Comment: Speci men Type: BLOOD SPECIMEN Ordering Facility: [facility] Address: [address] [place] [address] Performed By: #### 5 8410-2 #### [facility] CLIA [id number] [address] [place] [address] [place] MCH (RBC) [Entitic mass] 26.0 pg Normal 26.0-34.0 [facility] Comment on above: Order Comment: Speci men Type: BLOOD SPECIMEN Ordering Facility: [facility] Address: [address] [place] [address] Performed By: #### 5 8410-2 #### [facility] CLIA [id number] [address] [place] [address] [place] MCHC (RBC) [Mass/Vol] 31.1 g/dL Normal 30.5-36.0 [facility] Comment on above: Order Comment: Speci men Type: BLOOD SPECIMEN Ordering Facility: [facility] Address: [address] [place] [address] Performed By: #### 5 8410-2 #### [facility] CLIA [id number] [address] [place] [address] [place] MCV (RBC) [Entitic vol] 83.7 fL Normal 80.0-100.0 C [facility] Comment on above: Order Comment: Speci men Type: BLOOD SPECIMEN Ordering Facility: [facility] Address: [address] [place] [address] Performed By: #### 5 8410-2 #### [facility] CLIA [id number] [address] [place] [address] [place] Nucleated RBC (Bld) [#/Vol] 10*3/uL Normal <0.01 [facility] Comment on above: Order Comment: Speci men Type: BLOOD SPECIMEN Ordering Facility: [facility] Address: [address] [place] [address] Performed By: #### 5 8410-2 #### [facility] CLIA [id number] [address] [place] [address] [place] Platelet mean volume (Bld) [Entitic vol] 9.3 fL Normal 9.0-12.7 [facility] Comment on above: Order Comment: Speci men Type: BLOOD SPECIMEN Ordering Facility: [facility] Address: [address] [place] [address] Performed By: #### 5 8410-2 #### [facility] CLIA [id number] [address] [place] [address] [place] Platelets (Bld) [#/Vol] 386 10*3/uL Normal 150-400 [facility] Comment on above: Order Comment: Speci men Type: BLOOD SPECIMEN Ordering Facility: [facility] Address: [address] [place] [address] Performed By: #### 5 8410-2 #### [facility] CLIA [id number] [address] [place] [address] [place] RBC (Bld) [#/Vol] 4.04 10*6/uL Normal 3.90-5.20 [facility] Comment on above: Order Comment: Speci men Type: BLOOD SPECIMEN Ordering Facility: [facility] Address: [address] [place] [address] Performed By: #### 5 8410-2 #### [facility] CLIA [id number] [address] [place] [address] [place] WBC (Bld) [#/Vol] 10.81 10*3/uL Normal 3.70-11.00 [facility] Comment on above: Order Comment: Speci men Type: BLOOD SPECIMEN Ordering Facility: [facility] Address: [address] [place] [address] Performed By: #### 5 8410-2 #### [facility] CLIA [id number] [address] [place] [address] [place] CNDSon 07-18-2024 CNDS HNO ID: [id number] Author: BRIANA PRITCHARD MD Service: General Internal [...] May 2024 who presents to OSH from [facility] for further evaluation of R acute angle [...] hemorraghic cho (more content not included)... Normal [facility] Renal function 2000 panelon 07-18-2024 Albumin [Mass/Vol] 3.2 g/dL Low 3.9-4.[address] [facility] Comment on above: Order Comment: Speci men Type: BLOOD SPECIMEN Ordering Facility: [facility] Address: [address] [place] [address] Performed By: #### 2 4362-6 #### [facility] CLIA [id number] [address] [place] [address] [place] Anion gap [Moles/Vol] 11 mmol/L Normal 8-15 [facility] Comment on above: Order Comment: Speci men Type: BLOOD SPECIMEN Ordering Facility: [facility] Address: [address] [place] [address] Performed By: #### 2 4362-6 #### [facility] CLIA [id number] [address] [place] [address] [place] Calcium [Mass/Vol] 9.3 mg/dL Normal 8.5-10.[address] [facility] Comment on above: Order Comment: Speci men Type: BLOOD SPECIMEN Ordering Facility: [facility] Address: [address] [place] [address] Performed By: #### 2 4362-6 #### [facility] CLIA [id number] [address] [place] [address] [place] Chloride [Moles/Vol] 102 mmol/L Normal 98-107 [facility] Comment on above: Order Comment: Speci men Type: BLOOD SPECIMEN Ordering Facility: [facility] Address: [address] [place] [address] Performed By: #### 2 4362-6 #### [facility] CLIA [id number] [address] [place] [address] [place] CO2 [Moles/Vol] 25 mmol/L Normal 22-30 [facility] Comment on above: Order Comment: Speci men Type: BLOOD SPECIMEN Ordering Facility: [facility] Address: [address] [place] [address] Performed By: #### 2 4362-6 #### [facility] CLIA [id number] [address] [place] [address] [place] Creatinine [Mass/Vol] 0.90 mg/dL Normal 0.58-0.96 [facility] Comment on above: Order Comment: Speci men Type: BLOOD SPECIMEN Ordering Facility: [facility] Address: [address] [place] [address] Performed By: #### 2 4362-6 #### [facility] CLIA [id number] [address] [place] [address] [place] Creatinine and Glomerular filtration rate.predicted panel (S/P/Bld) 63 mL/min/1.73m??? Normal >=60 [facility] Comment on above: Order Comment: Speci men Type: BLOOD SPECIMEN Ordering Facility: [facility] Address: [address] [place] [address] Result Comment: Isa mated Glomerular Filtration Rate [...] GFR. Performed By: #### 2 4362-6 #### [facility] CLIA [id number] [address] [place] [address] [place] Glucose [Mass/Vol] 105 mg/dL High 74-[address] [facility] Comment on above: Order Comment: Speci men Type: BLOOD SPECIMEN Ordering Facility: [facility] Address: [address] [place] [address] Result Comment: The [place] [employer] (ADA) provides guidance for cutoff [...] Standards of Medical Care in Diabetes 2016, [place] [employer]. Diabetes Care. 2016.39(Suppl 1). Performed By: #### 2 4362-6 #### [facility] CLIA [id number] [address] [place] [address] [place] Phosphate [Mass/Vol] 3.0 mg/dL Normal 2.7-4.8 [facility] Comment on above: Order Comment: Rhina mason Type: BLOOD SPECIMEN Ordering Facility: [facility] Address: [address] [place] [address] Performed By: #### 2 4362-6 #### [facility] CLIA [id number] [address] [place] [address] [place] Potassium [Moles/Vol] 4.5 mmol/L Normal 3.7-5.1 [facility] Comment on above: Order Comment: Rhina mason Type: BLOOD SPECIMEN Ordering Facility: [facility] Address: [address] [place] [address] Performed By: #### 2 4362-6 #### [facility] CLIA [id number] [address] [place] [address] [place] Sodium [Moles/Vol] 138 mmol/L Normal 136-[address] [facility] Comment on above: Order Comment: Speci men Type: BLOOD SPECIMEN Ordering Facility: [facility] Address: [address] [place] [address] Performed By: #### 2 4362-6 #### [facility] CLIA [id number] [address] [place] [address] [place] Urea nitrogen [Mass/Vol] 17 mg/dL Normal 7-21 [facility] Comment on above: Order Comment: Speci men Type: BLOOD SPECIMEN Ordering Facility: [facility] Address: [address] [place] [address] Performed By: #### 2 4362-6 #### [facility] CLIA [id number] [address] [place] [address] [place] CASE MANAGEMon 07-17-2024 CASE MANAGEM HNO ID: [id number] Author: ?, ?, ? Service: ? Author Type: ? Type: Care Mgt Progress Note Filed: 07/17/2024 14:07 Note Text: CARE MANAGEMENT PROGRESS NOTE SERVICE DATE: 07/17/2024 SERVICE TIME: 2:07 PM LOS: 10 days Discharge packet completed and dropped off by residential real estate assistant Tamiko Holley. Packet is missing AVS/DC forms, please reach out to vocational case manager with any discharge related questions. SIGNATURE: Tamiko Holley PATIENT NAME: Mel Castillo DATE: July 17, 2024 TIME: 2:07 PM Normal [facility] CASE MANAGEM HNO ID: [id number] Author: DOMINIQUE RAMSAY LSW Service: ? Author Type: Property Portfolio Officer Type: Care Mgt Progress Note Filed: 07/17/2024 13:44 Note Text: CARE MANAGEMENT HOLIDAY PLANNING NOTE DISCHARGE OR POSSIBLE DISCHARGE Date/Time: 07/18 at 11am Disposition: Custodial Facility - Precert Obtained: Yes Facility Name: [facility] Facility Phone #: Transport: Mode of Transportation: Ambulance Transportation Agency and Phone #: [facility] [phone] . Date of Trip: 07/18/2024 at 11am Other Concerns: 11 am DC via [facility] trip# #[id number] to take Pt to [facility]. Pre-cert is approved, a bed is available, and Pt is medically ready. 7000 has been tasked. DC packet has been tasked. DNR form is on green chart. Weekend Synchro Assembler Pager #: Please see Treatment Team for Care Management Weekend/Holiday coverage. SIGNATURE: SHAQUILLE Garay PATIENT NAME: Mel Castillo DATE: July 17, 2024 TIME: 1:42 PM PAGER/CONTACT #: [facility] CASE MANAGEM HNO ID: [id number] Author: BASILIA CAPPS, ? Service: ? Author Type: ? Type: Care Mgt Progress Note Filed: 07/17/2024 13:14 Note Text: [facility] PRECERT NOTE [employer] MEDICARE PPO approved Custodial Facility for [facility] . Precert approved through 07/19/2024. For any additional questions regarding approvals, transport or care management needs, please contact the CM assigned to this patient in the Treatment Team. SIGNATURE: Basilia Capps DATE: July 17, 2024 TIME: 1:14 PM [facility] CASE MANAGEM HNO ID: [id number] Author: DOMINIQUE RAMSAY LSW Service: General Internal Medicine Author Type: Property Portfolio Officer Type: Care Mgt Progress Note Filed: 07/17/2024 11:29 Note Text: Attestation signed by Thomas Car DO at 07/17/2024 11:37 AM Thomas Car D.O. PGY-2 Internal Medicine Resident [facility] Click here to page July 17, [...] * Attending Physician: Briana Pritchard MD Normal [facility] CBC panel Auto (Bld)on 07-17 Erythrocyte distribution width (RBC) [Ratio] 17.2 % High 11.5-15.0 [facility] Comment on above: Order Comment: Rhina mason Type: BLOOD SPECIMEN Ordering Facility: [facility] Address: [address] [place] [address] Performed By: #### 2 276-4 #### [facility] CLIA [id number] [address] [place] [address] [place] Hematocrit (Bld) [Volume fraction] 32.3 % Low 36.0-46.0 [facility] Comment on above: Order Comment: Rhina mason Type: BLOOD SPECIMEN Ordering Facility: [facility] Address: [address] [place] [address] Performed By: #### 2 276-4 #### [facility] CLIA [id number] [address] [place] [address] [place] Hemoglobin (Bld) [Mass/Vol] 10.2 g/dL Low 11.5-15.5 [facility] Comment on above: Order Comment: Speci men Type: BLOOD SPECIMEN Ordering Facility: [facility] Address: [address] [place] [address] Performed By: #### 2 276-4 #### [facility] CLIA [id number] [address] [place] [address] STATES [facility] MCH (RBC) [Entitic mass] 26.5 pg Normal 26.0-34.0 [facility] Comment on above: Order Comment: Speci men Type: BLOOD SPECIMEN Ordering Facility: [facility] Address: [address] [place] [address] Performed By: #### 2 276-4 #### [facility] CLIA [id number] [address] [place] [address] [place] MCHC (RBC) [Mass/Vol] 31.6 g/dL Normal 30.5-36.0 [facility] Comment on above: Order Comment: Speci men Type: BLOOD SPECIMEN Ordering Facility: [facility] Address: [address] [place] [address] Performed By: #### 2 276-4 #### [facility] CLIA [id number] [address] [place] [address] [place] MCV (RBC) [Entitic vol] 83.9 fL Normal 80.0-100.0 C [facility] Comment on above: Order Comment: Speci men Type: BLOOD SPECIMEN Ordering Facility: [facility] Address: [address] [place] [address] Performed By: #### 2 276-4 #### [facility] CLIA [id number] [address] [place] [address] [place] Nucleated RBC (Bld) [#/Vol] 10*3/uL Normal <0.01 [facility] Comment on above: Order Comment: Speci men Type: BLOOD SPECIMEN Ordering Facility: [facility] Address: [address] [place] [address] Performed By: #### 2 276-4 #### [facility] CLIA [id number] [address] [place] [address] [place] Platelet mean volume (Bld) [Entitic vol] 9.7 fL Normal 9.0-12.7 [facility] Comment on above: Order Comment: Speci men Type: BLOOD SPECIMEN Ordering Facility: [facility] Address: [address] [place] [address] Performed By: #### 2 276-4 #### [facility] CLIA [id number] [address] [place] [address] [place] Platelets (Bld) [#/Vol] 362 10*3/uL Normal 150-400 [facility] Comment on above: Order Comment: Speci men Type: BLOOD SPECIMEN Ordering Facility: [facility] Address: [address] [place] [address] Performed By: #### 2 276-4 #### [facility] CLIA [id number] [address] [place] [address] [place] RBC (Bld) [#/Vol] 3.85 10*6/uL Low 3.90-5.20 [facility] Comment on above: Order Comment: Speci men Type: BLOOD SPECIMEN Ordering Facility: [facility] Address: [address] [place] [address] Performed By: #### 2 276-4 #### [facility] CLIA [id number] [address] [place] [address] [place] WBC (Bld) [#/Vol] 9.41 10*3/uL Normal 3.70-11.00 [facility] Comment on above: Order Comment: Speci men Type: BLOOD SPECIMEN Ordering Facility: [facility] Address: [address] [place] [address] Performed By: #### 2 276-4 #### [facility] CLIA [id number] [address] [place] [address] [place] Renal function 2000 panelon 07-17-2024 Albumin [Mass/Vol] 3.3 g/dL Low 3.9-4.[address] [facility] Comment on above: Order Comment: Speci men Type: BLOOD SPECIMENOrdering Facility: [facility] Address: [address] [id number] Performed By: #### 2 4362-6 ####[facility] [id number] [address] [address] [place] Anion gap [Moles/Vol] 10 mmol/L Normal 8-15 [facility] Comment on above: Order Comment: Speci men Type: BLOOD SPECIMENOrdering Facility: [facility] Address: [address] [place], [place] [address] Performed By: #### 2 4362-6 ####[facility] [id number] [place] [address] [place] Calcium [Mass/Vol] 9.0 mg/dL Normal 8.5-10.[address] [facility] Comment on above: Order Comment: Speci men Type: BLOOD SPECIMENOrdering Facility: [facility] Address: [address] [place], [place] [address] Performed By: #### 2 4362-6 ####[facility] [id number] [place] [address] [place] Chloride [Moles/Vol] 101 mmol/L Normal 98-107 [facility] Comment on above: Order Comment: Speci men Type: BLOOD SPECIMENOrdering Facility: [facility] Address: [address] [place], [place] [address] Performed By: #### 2 4362-6 ####[facility] [id number] [place] [id number] [place] CO2 [Moles/Vol] 25 mmol/L Normal 22-30 [facility] Comment on above: Order Comment: Speci men Type: BLOOD SPECIMENOrdering Facility: [facility] Address: [address] [place], [place] [address] Performed By: #### 2 4362-6 ####[facility] [id number] [place] [id number] [place] Creatinine [Mass/Vol] 0.94 mg/dL Normal 0.58-0.96 [facility] Comment on above: Order Comment: Rhina mason Type: BLOOD SPECIMENOrdering Facility: [facility] Address: [address] [place] [address] Performed By: #### 2 4362-6 ####[facility] [id number] [address] [facility] Creatinine and Glomerular filtration rate.predicted panel (S/P/Bld) 60 mL/min/1.73m??? Normal >=60 [facility] Comment on above: Order Comment: Rhina mason Type: BLOOD SPECIMENOrdering Facility: [facility] Address: [address] [place] [address] Result Comment: Isa mated Glomerular Filtration Rate [...] actual GFR. Performed By: #### 2 4362-6 ####[facility] [id number] [place] [address] [place] Glucose [Mass/Vol] 112 mg/dL High 74-[address] [facility] Comment on above: Order Comment: Rhina mason Type: BLOOD SPECIMENOrdering Facility: [facility] Address: [address] [place] [address] Result Comment: The [place] [employer] (ADA) provides guidance for cutoff [...] Standards of Medical Care in Diabetes 2016, [place] [employer]. Diabetes Care. 2016.39(Suppl 1). Performed By: #### 2 4362-6 ####[facility] [id number] [address] [address] [place] Phosphate [Mass/Vol] 2.2 mg/dL Low 2.7-4.8 [facility] Comment on above: Order Comment: Speci men Type: BLOOD SPECIMENOrdering Facility: [facility] Address: [address] [place] [address] Performed By: #### 2 4362-6 ####[facility] [id number] [place] [address] [place] Potassium [Moles/Vol] 4.6 mmol/L Normal 3.7-5.1 [facility] Comment on above: Order Comment: Speci men Type: BLOOD SPECIMENOrdering Facility: [facility] Address: [address] [place] [address] Performed By: #### 2 4362-6 ####[facility] [id number] [place] [address] [place] Sodium [Moles/Vol] 136 mmol/L Normal 136-[address] [facility] Comment on above: Order Comment: Speci men Type: BLOOD SPECIMENOrdering Facility: [facility] Address: [address] [place] [address] Performed By: #### 2 4362-6 ####[facility] [id number] [place] [id number] [place] Urea nitrogen [Mass/Vol] 20 mg/dL Normal 7-21 [facility] Comment on above: Order Comment: Speci men Type: BLOOD SPECIMENOrdering Facility: [facility] Address: [address] [place] [address] Performed By: #### 2 4362-6 ####[facility] [id number] [address] [address] [place] THERAPY NTon 07-17-2024 THERAPY NT HNO ID: [id number] Author: SANTIAGO GUZMAN, OT/L Service: Occupational Therapy Author Type: Occupational Therapist Type: Therapy (PT/OT/Speech/Resp) Filed: 07/17/2024 15:14 Note Text: Occupational Therapy Treatment Summary SERVICE DATE: 07/17/2024 SERVICE TIME: 1425 to 1504 ROOM: [place] [address] OT 6 Clicks Score: 15 DISCHARGE RECOMMENDATIONS [...] (ADL), Muscle Weakness (generalized) TREATMENT INTERVENTIONS Self Long Term Management (46051) Timed Code Treatment (minutes): 39 Skilled Treatment [...] Sit to Stand, Standing Balance to Improve Murray with ADLs/Self-Care, Sitting Balance to Improve Murray with ADLs/Self-Care, Life Roles/Routines/Habits THERAPEUTIC SKILLS USED [...] to Sit Contact Guard Assistance Bed to [facility] (more content not included)... Normal [facility] THERAPY NT HNO ID: [id number] Author: GABRIELLA DALEY, PT Service: Physical Therapy Author Type: Physical Therapist Type: Therapy (PT/OT/Speech/Resp) Filed: 07/17/2024 09:31 Note Text: Physical Therapy Evaluation Summary SERVICE DATE: 07/17/2024 SERVICE TIME: 832 to 911 ROOM: [place] [address] PT 6 Clicks Score: 18 DISCHARGE RECOMMENDATIONS [...] DIAGNOSIS Reduced mobility-other TREATMENT INTERVENTIONS $ Evaluation-Moderate (95753) Billed Units: 1 unit Therapeutic Activity (37190) Treatment Minutes: 10 $ Therapeutic Activity (81295) Billed Units: 1 unit Gait Training (28745) Treatment Minutes: 14 $ Gait Training (06453) Billed Units: 1 unit Evaluation, Therapeutic Activity (04314), Gait Training (35116) Timed Code Treatment (minutes): 24 Skilled Treatment [...] Conservation Training, (more content not included)... Normal [facility] BSCAN OD (RIGHT EYE)on 07-[address] [facility] Radiology Study observation (narrative) [facility] CBC panel Auto (Bld)on 07-16 Erythrocyte distribution width (RBC) [Ratio] 17.8 % High 11.5-15.0 [facility] Comment on above: Order Comment: Speci men Type: BLOOD SPECIMEN Ordering Facility: [facility] Address: [address] [place] [address] Performed By: #### 5 8410-2 #### [facility] CLIA [id number] [address] [place] [address] [place] Hematocrit (Bld) [Volume fraction] 33.2 % Low 36.0-46.0 [facility] Comment on above: Order Comment: Speci men Type: BLOOD SPECIMEN Ordering Facility: [facility] Address: [address] [place] [address] Performed By: #### 5 8410-2 #### [facility] CLIA [id number] [address] [place] [address] [place] Hemoglobin (Bld) [Mass/Vol] 10.3 g/dL Low 11.5-15.5 [facility] Comment on above: Order Comment: Speci men Type: BLOOD SPECIMEN Ordering Facility: [facility] Address: [address] [place] [address] Performed By: #### 5 8410-2 #### [facility] CLIA [id number] [address] [place] [address] [place] MCH (RBC) [Entitic mass] 25.6 pg Low 26.0-34.0 [facility] Comment on above: Order Comment: Speci men Type: BLOOD SPECIMEN Ordering Facility: [facility] Address: [address] [place] [address] Performed By: #### 5 8410-2 #### [facility] CLIA [id number] [address] [place] [address] [place] MCHC (RBC) [Mass/Vol] 31.0 g/dL Normal 30.5-36.0 [facility] Comment on above: Order Comment: Speci men Type: BLOOD SPECIMEN Ordering Facility: [facility] Address: [address] [place] [address] Performed By: #### 5 8410-2 #### [facility] CLIA [id number] [address] [place] [address] [place] MCV (RBC) [Entitic vol] 82.4 fL Normal 80.0-100.0 C [facility] Comment on above: Order Comment: Speci men Type: BLOOD SPECIMEN Ordering Facility: [facility] Address: [address] [place] [address] Performed By: #### 5 8410-2 #### [facility] CLIA [id number] [address] [place] [address] [place] Nucleated RBC (Bld) [#/Vol] 10*3/uL Normal <0.01 [facility] Comment on above: Order Comment: Speci men Type: BLOOD SPECIMEN Ordering Facility: [facility] Address: [address] [place] [address] Performed By: #### 5 8410-2 #### [facility] CLIA [id number] [address] [place] [address] [place] Platelet mean volume (Bld) [Entitic vol] 9.8 fL Normal 9.0-12.7 [facility] Comment on above: Order Comment: Speci men Type: BLOOD SPECIMEN Ordering Facility: [facility] Address: [address] [place] [address] Performed By: #### 5 8410-2 #### [facility] CLIA [id number] [address] [place] [address] [place] Platelets (Bld) [#/Vol] 348 10*3/uL Normal 150-400 [facility] Comment on above: Order Comment: Speci men Type: BLOOD SPECIMEN Ordering Facility: [facility] Address: [address] [place] [address] Performed By: #### 5 8410-2 #### [facility] CLIA [id number] [address] [place] [address] [place] RBC (Bld) [#/Vol] 4.03 10*6/uL Normal 3.90-5.20 [facility] Comment on above: Order Comment: Speci men Type: BLOOD SPECIMEN Ordering Facility: [facility] Address: [address] [place] [address] Performed By: #### 5 8410-2 #### [facility] CLIA [id number] [address] [place] [address] [place] WBC (Bld) [#/Vol] 11.15 10*3/uL High 3.70-11.00 [facility] Comment on above: Order Comment: Speci men Type: BLOOD SPECIMEN Ordering Facility: [facility] Address: [address] [place] [address] Performed By: #### 5 8410-2 #### [facility] CLIA [id number] [address] [place] [address] [place] FUNDUS PHOTOS OU (BOTH EYES) on 07-16-[address] [facility] Radiology Study observation (narrative) Amarjit Harris Renal function 2000 panelon 07-16-2024 Albumin [Mass/Vol] 3.1 g/dL Low 3.9-4.[address] [facility] Comment on above: Order Comment: Speci men Type: BLOOD SPECIMENOrdering Facility: [facility] Address: [address] [place] [address] Performed By: #### 2 4362-6 ####[facility] [id number] [place] [address] [place] Anion gap [Moles/Vol] 12 mmol/L Normal 8-15 [facility] Comment on above: Order Comment: Speci men Type: BLOOD SPECIMENOrdering Facility: [facility] Address: [address] [id number] Performed By: #### 2 4362-6 ####[facility] [id number] [address] [address] [place] Calcium [Mass/Vol] 9.0 mg/dL Normal 8.5-10.[address] [facility] Comment on above: Order Comment: Speci men Type: BLOOD SPECIMENOrdering Facility: [facility] Address: [address] [place] [address] Performed By: #### 2 4362-6 ####[facility] [id number] [place] [address] [place] Chloride [Moles/Vol] 103 mmol/L Normal 98-107 [facility] Comment on above: Order Comment: Speci men Type: BLOOD SPECIMENOrdering Facility: [facility] Address: [address] [place], [place] [address] Performed By: #### 2 4362-6 ####[facility] [id number] [place] [address] [place] CO2 [Moles/Vol] 23 mmol/L Normal 22-30 [facility] Comment on above: Order Comment: Speci men Type: BLOOD SPECIMENOrdering Facility: [facility] Address: [address] [place], [place] [address] Performed By: #### 2 4362-6 ####[facility] [id number] [place] [id number] [place] Creatinine [Mass/Vol] 1.09 mg/dL High 0.58-0.96 [facility] Comment on above: Order Comment: Speci men Type: BLOOD SPECIMENOrdering Facility: [facility] Address: [address] [place], [place] [address] Performed By: #### 2 4362-6 ####[facility] [id number] [place] [address] [place] Creatinine and Glomerular filtration rate.predicted panel (S/P/Bld) 50 mL/min/1.73m??? Low >=60 [facility] Comment on above: Order Comment: Rhina mason Type: BLOOD SPECIMENOrdering Facility: [facility] Address: [address] [place] [address] Result Comment: Isa mated Glomerular Filtration Rate [...] actual GFR. Performed By: #### 2 4362-6 ####[facility] [id number] [place] [address] [place] Glucose [Mass/Vol] 103 mg/dL High 74-[address] [facility] Comment on above: Order Comment: Rhina mason Type: BLOOD SPECIMENOrdering Facility: [facility] Address: [address] [place] [address] Result Comment: The [place] [employer] (ADA) provides guidance for cutoff [...] Standards of Medical Care in Diabetes 2016, [place] [employer]. Diabetes Care. 2016.39(Suppl 1). Performed By: #### 2 4362-6 ####[facility] [id number] [place] [address] [place] Phosphate [Mass/Vol] 2.9 mg/dL Normal 2.7-4.8 [facility] Comment on above: Order Comment: Speci men Type: BLOOD SPECIMENOrdering Facility: [facility] Address: [address] [place] [address] Performed By: #### 2 4362-6 ####[facility] [id number] [place] [address] [place] Potassium [Moles/Vol] 4.5 mmol/L Normal 3.7-5.1 [facility] Comment on above: Order Comment: Speci men Type: BLOOD SPECIMENOrdering Facility: [facility] Address: [address] [place] [address] Performed By: #### 2 4362-6 ####[facility] [id number] [place] [address] [place] Sodium [Moles/Vol] 138 mmol/L Normal 136-[address] [facility] Comment on above: Order Comment: Speci men Type: BLOOD SPECIMENOrdering Facility: [facility] Address: [address] [place] [address] Performed By: #### 2 4362-6 ####[facility] [id number] [place] [address] [place] Urea nitrogen [Mass/Vol] 22 mg/dL High 7-21 [facility] Comment on above: Order Comment: Speci men Type: BLOOD SPECIMENOrdering Facility: [facility] Address: [address] [place] [address] Performed By: #### 2 4362-6 ####[facility] [id number] [place] [address] [place] THERAPY NTon 07-16-2024 THERAPY NT HNO ID: [id number] Author: SANTIAGO GUZMAN OT/L Service: Occupational Therapy Author Type: Occupational Therapist Type: Therapy (PT/OT/Speech/Resp) Filed: 07/16/2024 15:10 Note Text: Occupational Therapy Treatment Summary SERVICE DATE: 07/16/2024 SERVICE TIME: 1415 to 1500 [facility] 6 Clicks Score: 15 DISCHARGE RECOMMENDATIONS [...] (ADL), Muscle Weakness (generalized) TREATMENT INTERVENTIONS Self Long Term Management (86218) Timed Code Treatment (minutes): 45 Skilled Treatment [...] Sit to Stand, Standing Balance to Improve Murray with ADLs/Self-Care, Sitting Balance to Improve [place] with ADLs/Self-Care, Life Roles/Routines/Habits THERAPEUTIC SKILLS USED [...] Assistance Sit (more content not included)... Normal [facility] CBC panel Auto (Bld)on 07-15 Erythrocyte distribution width (RBC) [Ratio] 17.8 % High 11.5-15.0 [facility] Comment on above: Order Comment: Speci men Type: BLOOD SPECIMEN Ordering Facility: [facility] Address: [address] [place] [address] Performed By: #### 2 4362-6 #### [facility] CLIA [id number] [address] [place] [address] [place] Hematocrit (Bld) [Volume fraction] 34.4 % Low 36.0-46.0 [facility] Comment on above: Order Comment: Speci men Type: BLOOD SPECIMEN Ordering Facility: [facility] Address: [address] [place] [address] Performed By: #### 2 4362-6 #### [facility] CLIA [id number] [address] [place] [address] [place] Hemoglobin (Bld) [Mass/Vol] 10.7 g/dL Low 11.5-15.5 [facility] Comment on above: Order Comment: Speci men Type: BLOOD SPECIMEN Ordering [facility]: [facility] Address: [address] [place] [address] Performed By: #### 2 4362-6 #### [facility] CLIA [id number] [address] [place] [address] [place] MCH (RBC) [Entitic mass] 26.2 pg Normal 26.0-34.0 [facility] [place] Comment on above: Order Comment: Speci men Type: BLOOD SPECIMEN Ordering Facility: [facility] Address: [address] [place] [address] Performed By: #### 2 4362-6 #### [facility] CLIA [id number] [address] [place] [address] [place] MCHC (RBC) [Mass/Vol] 31.1 g/dL Normal 30.5-36.0 [facility] Comment on above: Order Comment: Speci men Type: BLOOD SPECIMEN Ordering Facility: [facility] Address: [address] [place] [address] Performed By: #### 2 4362-6 #### [facility] CLIA [id number] [address] [place] [address] [place] MCV (RBC) [Entitic vol] 84.1 fL Normal 80.0-100.0 C [facility] Comment on above: Order Comment: Speci men Type: BLOOD SPECIMEN Ordering Facility: [facility] Address: [address] [place] [address] Performed By: #### 2 4362-6 #### [facility] CLIA [id number] [address] [place] [address] [place] Nucleated RBC (Bld) [#/Vol] 10*3/uL Normal <0.01 [facility] Comment on above: Order Comment: Speci men Type: BLOOD SPECIMEN Ordering Facility: [facility] Address: [address] [place] [address] Performed By: #### 2 4362-6 #### [facility] CLIA [id number] [address] [place] [address] [place] Platelet mean volume (Bld) [Entitic vol] 10.1 fL Normal 9.0-12.7 [facility] Comment on above: Order Comment: Speci men Type: BLOOD SPECIMEN Ordering Facility: [facility] Address: [address] [place] [address] Performed By: #### 2 4362-6 #### [facility] CLIA [id number] [address] [place] [address] [place] Platelets (Bld) [#/Vol] 386 10*3/uL Normal 150-400 [facility] Comment on above: Order Comment: Speci men Type: BLOOD SPECIMEN Ordering Facility: [facility] Address: [address] [place] [address] Performed By: #### 2 4362-6 #### [facility] CLIA [id number] [address] [place] [address] [place] RBC (Bld) [#/Vol] 4.09 10*6/uL Normal 3.90-5.20 [facility] Comment on above: Order Comment: Speci men Type: BLOOD SPECIMEN Ordering Facility: [facility] Address: [address] [place] [address] Performed By: #### 2 4362-6 #### [facility] CLIA [id number] [address] [place] [address] [place] WBC (Bld) [#/Vol] 10.20 10*3/uL Normal 3.70-11.00 [facility] Comment on above: Order Comment: Speci men Type: BLOOD SPECIMEN Ordering Facility: [facility] Address: [address] [place] [address] Performed By: #### 2 4362-6 #### [facility] CLIA [id number] [address] [place] [address] [place] Renal function 2000 panelon 07-15-2024 Albumin [Mass/Vol] 3.5 g/dL Low 3.9-4.[address] [facility] Comment on above: Order Comment: Speci men Type: BLOOD SPECIMENOrdering Facility: [facility] Address: [address] [place] [address] Performed By: #### 2 4362-6 ####[facility] [id number] [place] [address] [place] Anion gap [Moles/Vol] 12 mmol/L Normal 8-15 [facility] Comment on above: Order Comment: Speci men Type: BLOOD SPECIMENOrdering Facility: [facility] Address: [address] [place] [address] Performed By: #### 2 4362-6 ####[facility] [id number] [place] [address] [place] Calcium [Mass/Vol] 9.1 mg/dL Normal 8.5-10.[address] [facility] Comment on above: Order Comment: Speci men Type: BLOOD SPECIMENOrdering Facility: [facility] Address: [address] [place] [address] Performed By: #### 2 4362-6 ####[facility] [id number] [place] [address] [place] Chloride [Moles/Vol] 101 mmol/L Normal 98-107 [facility] Comment on above: Order Comment: Speci men Type: BLOOD SPECIMENOrdering Facility: [facility] Address: [address] [place] [address] Performed By: #### 2 4362-6 ####[facility] [id number] [place] [address] [place] CO2 [Moles/Vol] 24 mmol/L Normal 22-30 [facility] Comment on above: Order Comment: Speci men Type: BLOOD SPECIMENOrdering Facility: [facility] Address: [address] [place] [address] Performed By: #### 2 4362-6 ####[facility] [id number] [place] [address] [place] Creatinine [Mass/Vol] 0.96 mg/dL Normal 0.58-0.96 [facility] Comment on above: Order Comment: Speci men Type: BLOOD SPECIMENOrdering Facility: [facility] Address: [address] [place] [address] Performed By: #### 2 4362-6 ####[facility] [id number] [place] [address] [place] Creatinine and Glomerular filtration rate.predicted panel (S/P/Bld) 58 mL/min/1.73m??? Low >=60 [facility] Comment on above: Order Comment: Speci men Type: BLOOD SPECIMENOrdering Facility: [facility] Address: [address] [place] [address] Result Comment: Isa mated Glomerular Filtration Rate [...] actual GFR. Performed By: #### 2 4362-6 ####[facility] [id number] [address] [address] [place] Glucose [Mass/Vol] 93 mg/dL Normal 74-[address] [facility] Comment on above: Order Comment: Rhina mason Type: BLOOD SPECIMENOrdering Facility: [facility] Address: [address] [id number] Result Comment: The [place] [employer] (ADA) provides guidance for cutoff [...] Standards of Medical Care in Diabetes 2016, [place] [employer]. Diabetes Care. 2016.39(Suppl 1). Performed By: #### 2 4362-6 ####[facility] [id number] [place] [id number] [place] Phosphate [Mass/Vol] 3.1 mg/dL Normal 2.7-4.8 [facility] Comment on above: Order Comment: Rhina mason Type: BLOOD SPECIMENOrdering Facility: [facility] Address: [address] [place] [address] Performed By: #### 2 4362-6 ####[facility] [id number] [address] [address] [place] Potassium [Moles/Vol] 4.3 mmol/L Normal 3.7-5.1 [facility] Comment on above: Order Comment: Speci men Type: BLOOD SPECIMENOrdering Facility: [facility] Address: [address] [place] [address] Performed By: #### 2 4362-6 ####[facility] [id number] [place] [address] [place] Sodium [Moles/Vol] 137 mmol/L Normal 136-[address] [facility] Comment on above: Order Comment: Speci men Type: BLOOD SPECIMENOrdering Facility: [facility] Address: [address] [place] [address] Performed By: #### 2 4362-6 ####[facility] [id number] [place] [address] [place] Urea nitrogen [Mass/Vol] 19 mg/dL Normal 7-21 [facility] Comment on above: Order Comment: Speci men Type: BLOOD SPECIMENOrdering Facility: [facility] Address: [address] [place] [address] Performed By: #### 2 4362-6 ####[facility] [id number] [place] [address] [place] CBC panel Auto (Bld)on 07-14 Erythrocyte distribution width (RBC) [Ratio] 17.9 % High 11.5-15.0 [facility] Comment on above: Order Comment: Speci men Type: BLOOD SPECIMEN Ordering Facility: [facility] Address: [address] [place] [address] Performed By: #### 2 4362-6 #### [facility] CLIA [id number] [address] [place] [address] [place] Hematocrit (Bld) [Volume fraction] 33.8 % Low 36.0-46.0 [facility] Comment on above: Order Comment: Speci men Type: BLOOD SPECIMEN Ordering Facility: [facility] Address: [address] [place] [address] Performed By: #### 2 4362-6 #### [facility] CLIA [id number] [address] [place] [address] [place] Hemoglobin (Bld) [Mass/Vol] 10.7 g/dL Low 11.5-15.5 [facility] Comment on above: Order Comment: Speci men Type: BLOOD SPECIMEN Ordering Facility: [facility] Address: [address] [place] [address] Performed By: #### 2 4362-6 #### [facility] CLIA [id number] [address] [place] [address] [place] MCH (RBC) [Entitic mass] 26.4 pg Normal 26.0-34.0 [facility] Comment on above: Order Comment: Speci men Type: BLOOD SPECIMEN Ordering Facility: [facility] Address: [address] [place] [address] Performed By: #### 2 4362-6 #### [facility] CLIA [id number] [address] [place] [address] [place] MCHC (RBC) [Mass/Vol] 31.7 g/dL Normal 30.5-36.0 [facility] Comment on above: Order Comment: Speci men Type: BLOOD SPECIMEN Ordering Facility: [facility] Address: [address] [place] [address] Performed By: #### 2 4362-6 #### [facility] CLIA [id number] [address] [place] [address] [place] MCV (RBC) [Entitic vol] 83.5 fL Normal 80.0-100.0 C [facility] Comment on above: Order Comment: Speci men Type: BLOOD SPECIMEN Ordering Facility: [facility] Address: [address] [place] [address] Performed By: #### 2 4362-6 #### [facility] CLIA [id number] [address] [id number] [address] [place] Nucleated RBC (Bld) [#/Vol] 10*3/uL Normal <0.01 [facility] Comment on above: Order Comment: Speci men Type: BLOOD SPECIMEN Ordering Facility: [facility] Address: [address] [place] [address] Performed By: #### 2 4362-6 #### [facility] CLIA [id number] [address] [place] [address] [place] Platelet mean volume (Bld) [Entitic vol] 10.3 fL Normal 9.0-12.7 [facility] Comment on above: Order Comment: Speci men Type: BLOOD SPECIMEN Ordering Facility: [facility] Address: [address] [place] [address] Performed By: #### 2 4362-6 #### [facility] CLIA [id number] [address] [place] [address] [place] Platelets (Bld) [#/Vol] 345 10*3/uL Normal 150-400 [facility] Comment on above: Order Comment: Speci men Type: BLOOD SPECIMEN Ordering Facility: [facility] Address: [address] [place] [address] Performed By: #### 2 4362-6 #### [facility] CLIA [id number] [address] [place] [address] [place] RBC (Bld) [#/Vol] 4.05 10*6/uL Normal 3.90-5.20 [facility] Comment on above: Order Comment: Speci men Type: BLOOD SPECIMEN Ordering Facility: [facility] Address: [address] [place] [address] Performed By: #### 2 4362-6 #### [facility] CLIA [id number] [address] [place] [address] [place] WBC (Bld) [#/Vol] 11.07 10*3/uL High 3.70-11.00 [facility] Comment on above: Order Comment: Speci men Type: BLOOD SPECIMEN Ordering Facility: [facility] Address: [address] [place], [place] [address] Performed By: #### 2 4362-6 #### [facility] CLIA [id number] [address] [place] [address] [place] Renal function 2000 panelon 07-14-2024 Albumin [Mass/Vol] 3.5 g/dL Low 3.9-4.[address] [facility] Comment on above: Order Comment: Speci men Type: BLOOD SPECIMEN Ordering Facility: [facility] Address: [address] [place] [address] Performed By: #### 2 4362-6 #### [facility] CLIA [id number] [address] [place] [address] [place] Anion gap [Moles/Vol] 14 mmol/L Normal 8-15 [facility] Comment on above: Order Comment: Speci men Type: BLOOD SPECIMEN Ordering Facility: [facility] Address: [address] [place] [address] Performed By: #### 2 4362-6 #### [facility] CLIA [id number] [address] [place] [address] [place] Calcium [Mass/Vol] 9.1 mg/dL Normal 8.5-10.[address] [facility] Comment on above: Order Comment: Speci men Type: BLOOD SPECIMEN Ordering Facility: [facility] Address: [address] [place], [place] [address] Performed By: #### 2 4362-6 #### [facility] CLIA [id number] [address] [place] [address] [place] Chloride [Moles/Vol] 98 mmol/L Normal 98-107 [facility] Comment on above: Order Comment: Speci men Type: BLOOD SPECIMEN Ordering Facility: [facility] Address: [address] [place] [address] Performed By: #### 2 4362-6 #### [facility] CLIA [id number] [address] [place] [address] [place] CO2 [Moles/Vol] 22 mmol/L Normal 22-30 [facility] Comment on above: Order Comment: Speci men Type: BLOOD SPECIMEN Ordering Facility: [facility] Address: [address] [place] [address] Performed By: #### 2 4362-6 #### [facility] CLIA [id number] [address] [place] [address] [place] Creatinine [Mass/Vol] 1.01 mg/dL High 0.58-0.96 [facility] Comment on above: Order Comment: Speci men Type: BLOOD SPECIMEN Ordering Facility: [facility] Address: [address] [place] [address] Performed By: #### 2 4362-6 #### [facility] CLIA [id number] [address] [place] [address] [place] Creatinine and Glomerular filtration rate.predicted panel (S/P/Bld) 55 mL/min/1.73m??? Low >=60 [facility] Comment on above: Order Comment: Speci men Type: BLOOD SPECIMEN Ordering Facility: [facility] Address: [address] [place] [address] Result Comment: Isa mated Glomerular Filtration Rate [...] GFR. Performed By: #### 2 4362-6 #### [facility] CLIA [id number] [address] [place] [address] [place] Glucose [Mass/Vol] 131 mg/dL High 74-[address] [facility] Comment on above: Order Comment: Speci men Type: BLOOD SPECIMEN Ordering Facility: [facility] Address: [address] [place], [place] [address] Result Comment: The [place] [employer] (ADA) provides guidance for cutoff [...] Standards of Medical Care in Diabetes 2016, [place] [employer]. Diabetes Care. 2016.39(Suppl 1). Performed By: #### 2 4362-6 #### [facility] CLIA [id number] [address] [place] [address] [place] Phosphate [Mass/Vol] 3.5 mg/dL Normal 2.7-4.8 [facility] Comment on above: Order Comment: Speci men Type: BLOOD SPECIMEN Ordering Facility: [facility] Address: [address] [place] [address] Performed By: #### 2 4362-6 #### [facility] CLIA [id number] [address] [place] [address] [place] Potassium [Moles/Vol] 4.1 mmol/L Normal 3.7-5.1 [facility] Comment on above: Order Comment: Speci men Type: BLOOD SPECIMEN Ordering Facility: [facility] Address: [address] [place] [address] Performed By: #### 2 4362-6 #### [facility] CLIA [id number] [address] [place] [address] [place] Sodium [Moles/Vol] 134 mmol/L Low 136-[address] [facility] Comment on above: Order Comment: Speci men Type: BLOOD SPECIMEN Ordering Facility: [facility] Address: [address] [place], [place] [address] Performed By: #### 2 4362-6 #### [facility] CLIA [id number] [address] [place] [address] [place] Urea nitrogen [Mass/Vol] 19 mg/dL Normal 7-21 [facility] Comment on above: Order Comment: Speci men Type: BLOOD SPECIMEN Ordering Facility: [facility] Address: [address] [place] [address] Performed By: #### 2 4362-6 #### [facility] CLIA [id number] [address] [place] [address] [place] ANES POSTPROC EVALon 024 ANES POSTPROC EVAL HNO ID: [id number] Author: SIERRA FALK MD Service: ? Author Type: Anesthesiologist Type: Anesthesia Postprocedure Evaluation Filed: 07/13/2024 15:57 Note Text: POST ANESTHESIA EVALUATION NOTE : 1940 Procedure Summary Date: 07/13/24 Room / Location: [address] Anesthesia Start: 1222 Anesthesia Stop: 1337 [...] July 13, 2024 TIME: 3:57 PM CSN: [id number] Normal [facility] ANES PRE-OPon 07-13-2024 ANES PRE-OP HNO ID: [id number] Author: SIERRA FALK MD Service: ? Author Type: Anesthesiologist Type: Anesthesia Preprocedure Evaluation Filed: 07/13/2024 09:44 Note Text: ANESTHESIOLOGY DAY OF SURGERY NOTE : 1940 Procedure Information Date/Time: 07/13/241403 Procedure: ASPIRATION VITREOUS, CHOROIDAL FLUID, PARS PLANA APPROACH (Right: Eye) Location: [place] [address] / [facility] Surgeons: Savana Lopez MD Estimated body mass index is 26.11 kg/m? as calculated from the following: Height as of 06/11/24: 162.6 cm (5' 4). Weight as of 06/13/24: 69 kg (152 [...] and consent discussed: yes. Patient / Responsible Republican agrees to proceed: yes Patient / Surrogate [...] 0.5 tablets by mouth every 12 hours. oexzdoqoeet-atjfyrnnw-q ilanter (TRELEGY ELLIPTA) 100-62.5-25 mcg inhalation powder Inhale 1 Puff as instructed once daily. acetaminophen (TYLENOL) 325 mg tablet Take 2 tablets by mouth every 6 hours as needed for pain. ascorbic acid (more content not included)... Normal [facility] CASE MANAGEM HNO ID: [id number] Author: REBECA BELLE LSW Service: ? Author Type: Property Portfolio Officer Type: Care Mgt Progress Note Filed: 07/13/2024 16:25 Note Text: CARE MANAGEMENT WEEKEND PLANNING NOTE NO WEEKEND DISCHARGE Disposition: Custodial Facility Anticipated Discharge Date: TBD CM followed up with pt's daughter for SNF choices. Pt is currently in the OR- unable to send referrals in careport or complete edit note side bar. 1)[facility] 2)[facility] 3)[facility] 4)[facility] 5)[facility] Will need accepting SNF and precert prior to dc. UPDATE 4:24pm: Referrals sent; awaiting response. Weekend Synchro Assembler Pager #: Please see Treatment Team for Care Management Weekend/Holiday coverage. SIGNATURE: SHAQUILLE Nuñez PATIENT NAME: Mel Castillo DATE: July 13, 2024 TIME: 3:09 PM PAGER/CONTACT #: [phone] Normal [facility] CBC panel Auto (Bld)on 07-13 Erythrocyte distribution width (RBC) [Ratio] 17.6 % High 11.5-15.0 [facility] Comment on above: Order Comment: Speci men Type: BLOOD SPECIMENOrdering Facility: [facility] Address: [address] [place] [address] Performed By: #### 5 8410-2 ####[facility] [id number] [place] [address] [place] Hematocrit (Bld) [Volume fraction] 34.5 % Low 36.0-46.0 [facility] Comment on above: Order Comment: Speci men Type: BLOOD SPECIMENOrdering Facility: [facility] Address: [address] [place] [address] Performed By: #### 5 8410-2 ####[facility] [id number] [place] [address] [place] Hemoglobin (Bld) [Mass/Vol] 10.8 g/dL Low 11.5-15.5 [facility] Comment on above: Order Comment: Speci men Type: BLOOD SPECIMENOrdering Facility: [facility] Address: [address] [place] [address] Performed By: #### 5 8410-2 ####[facility] [id number] [place] [address] [place] MCH (RBC) [Entitic mass] 26.1 pg Normal 26.0-34.0 [facility] Comment on above: Order Comment: Speci men Type: BLOOD SPECIMENOrdering Facility: [facility] Address: [address] [place] [address] Performed By: #### 5 8410-2 ####[facility] [id number] [place] [address] [place] MCHC (RBC) [Mass/Vol] 31.3 g/dL Normal 30.5-36.0 [facility] Comment on above: Order Comment: Speci men Type: BLOOD SPECIMENOrdering Facility: [facility] Address: [address] [place] [address] Performed By: #### 5 8410-2 ####[facility] [id number] [place] [address] [place] MCV (RBC) [Entitic vol] 83.3 fL Normal 80.0-100.0 C [facility] Comment on above: Order Comment: Speci men Type: BLOOD SPECIMENOrdering Facility: [facility] Address: [address] [place] [address] Performed By: #### 5 8410-2 ####[facility] [id number] [place] [address] [place] Nucleated RBC (Bld) [#/Vol] 10*3/uL Normal <0.01 [facility] Comment on above: Order Comment: Speci men Type: BLOOD SPECIMENOrdering Facility: [facility] Address: [address] [place] [address] Performed By: #### 5 8410-2 ####[facility] [id number] [place] [address] [place] Platelet mean volume (Bld) [Entitic vol] 9.7 fL Normal 9.0-12.7 [facility] Comment on above: Order Comment: Speci men Type: BLOOD SPECIMENOrdering Facility: [facility] Address: [address] [place] [address] Performed By: #### 5 8410-2 ####[facility] [id number] [place] [address] [place] Platelets (Bld) [#/Vol] 334 10*3/uL Normal 150-400 [facility] Comment on above: Order Comment: Speci men Type: BLOOD SPECIMENOrdering Facility: [facility] Address: [address] [place] [address] Performed By: #### 5 8410-2 ####[facility] [id number] [place] [address] [place] RBC (Bld) [#/Vol] 4.14 10*6/uL Normal 3.90-5.20 [facility] Comment on above: Order Comment: Speci men Type: BLOOD SPECIMENOrdering Facility: [facility] Address: [address] [place] [address] Performed By: #### 5 8410-2 ####[facility] LABIA [id number] [place] [address] [place] WBC (Bld) [#/Vol] 10.74 10*3/uL Normal 3.70-11.00 [facility] Comment on above: Order Comment: Speci men Type: BLOOD SPECIMENOrdering Facility: [facility] Address: [address] [place] [address] Performed By: #### 5 8410-2 ####[facility]IA [id number] [place] [address] [place] ECHO WITH AGITATED SALINE CO NTRASTon 07-13-2024 ECHO WITH AGITATED SALINE CONTRAST Echocardiography Report: Transthoracic Echo [facility] Bedside Date of service: 07/13/2024 3:54:27 PM INTERN Ordering physician: FELICIA LEVY Indication: Limited KYLE [...] * * Final * * * CC [facility] Image : [id number] ISUID Normal [facility] NUTRITIONon 07-13-2024 NUTRITION HNO ID: [id number] Author: PAWAN PRESLEY DTR Service: Nutrition Therapy Author Type: Plastic Welder Type: Nutrition Filed: 07/13/2024 11:50 Note Text: NUTRITION THERAPY SHERIFF'S OFFICER NOTE SERVICE DATE: 07/13/2024 SERVICE TIME: 1045 Visit Type: Length of Stay Evaluation Goals Met: Not Met The patient was not available at time of visit. Per [facility], she has not met nutritional goals. Will start nutritional supplement and follow up for intake improvements and tolerance of nutritional supplements. Plan of Care: Supplements: Ensure Plus High Protein Follow-Up: [facility] Reassessment Nursing Admission Assessment Malnutrition Score: Nutrition [...] supplements Allergies: No food allergies noted per [facility]. MNT Billing: $ Routine Care : 1-15 minutes SIGNATURE: Pawan Presley DTR PATIENT NAME: Mel Castillo DATE: July 13, 2024 TIME: 11:49 AM Normal [facility] OPERATIVE NOon 07-13-2024 OPERATIVE NO HNO ID: [id number] Author: SAVANA LOPEZ MD Service: Ophthalmology Author Type: Physician Type: Operative Report Filed: 07/13/2024 13:32 Note Text: [place] [address] [place] [facility] OPERATIVE REPORT LOG ID: [id number] Surgery/Procedure Date: 07/13/2024 Incision/Procedure Start Time: 12:43 PM Incision Close/Procedure End Time: 1:32 PM NAME: Mel Pop [facility] #: [id number] SURGEON(S) AND INSTRUMENT DESIGNER(S): Surgeons and Role: * Savana Lopez MD [...] MD Vitreoretinal Surgery AND Ocular Inflammatory Diseases [facility] Eye Rodessa Normal [facility] Renal function 2000 panelon 07-13-2024 Albumin [Mass/Vol] 3.5 g/dL Low 3.9-4.[address] [facility] Comment on above: Order Comment: Rhina mason Type: BLOOD SPECIMENOrdering Facility: [facility] Address: [address] [place] [address] Performed By: #### 2 4362-6 ####[facility] LABCLIA [id number] [address] [address] [place] Anion gap [Moles/Vol] 10 mmol/L Normal 8-15 [facility] Comment on above: Order Comment: Rhina mason Type: BLOOD SPECIMENOrdering Facility: [facility] Address: [address] [place] [address] Performed By: #### 2 4362-6 ####[facility] LABCLIA [id number] [address] [address] [place] Calcium [Mass/Vol] 9.3 mg/dL Normal 8.5-10.[address] [facility] Comment on above: Order Comment: Speci men Type: BLOOD SPECIMENOrdering Facility: [facility] Address: [address] [place], [place] [address] Performed By: #### 2 4362-6 ####[facility] LABCLIA [id number] [place] [address] [place] Chloride [Moles/Vol] 100 mmol/L Normal 98-107 [facility] Comment on above: Order Comment: Speci men Type: BLOOD SPECIMENOrdering Facility: [facility] Address: [address] [place] [address] Performed By: #### 2 4362-6 ####[facility] LABCLIA [id number] [place] [address] [place] CO2 [Moles/Vol] 27 mmol/L Normal 22-30 [facility] Comment on above: Order Comment: Speci men Type: BLOOD SPECIMENOrdering Facility: [facility] Address: [address] [place], [place] [address] Performed By: #### 2 4362-6 ####[facility] LABCLIA [id number] [place] [id number] [place] Creatinine [Mass/Vol] 0.92 mg/dL Normal 0.58-0.96 [facility] Comment on above: Order Comment: Speci men Type: BLOOD SPECIMENOrdering Facility: [facility] Address: [address] [place], [place] [address] Performed By: #### 2 4362-6 ####[facility] LABCLIA [id number] [place] [id number] [place] Creatinine and Glomerular filtration rate.predicted panel (S/P/Bld) 62 mL/min/1.73m??? Normal >=60 [facility] Comment on above: Order Comment: Rhina mason Type: BLOOD SPECIMENOrdering Facility: [facility] Address: [address] [place] [address] Result Comment: Isa mated Glomerular Filtration Rate [...] actual GFR. Performed By: #### 2 4362-6 ####[facility] LABIA [id number] [place] [address] [place] Glucose [Mass/Vol] 103 mg/dL High 74-[address] [facility] Comment on above: Order Comment: Rhina mason Type: BLOOD SPECIMENOrdering Facility: [facility] Address: [address] [place] [address] Result Comment: The [place] [employer] (ADA) provides guidance for cutoff [...] Standards of Medical Care in Diabetes 2016, [place] [employer]. Diabetes Care. 2016.39(Suppl 1). Performed By: #### 2 4362-6 ####[facility] LABIA [id number] [place] [address] [place] Phosphate [Mass/Vol] 3.5 mg/dL Normal 2.7-4.8 [facility] Comment on above: Order Comment: Speci men Type: BLOOD SPECIMENOrdering Facility: [facility] Address: [address] [place], [place] [address] Performed By: #### 2 4362-6 ####[facility] LABCLIA [id number] [address] [address] [place] Potassium [Moles/Vol] 4.2 mmol/L Normal 3.7-5.1 [facility] Comment on above: Order Comment: Speci men Type: BLOOD SPECIMENOrdering Facility: [facility] Address: [address] [place] [address] Performed By: #### 2 4362-6 ####[facility] LABCLIA [id number] [place] [address] [place] Sodium [Moles/Vol] 137 mmol/L Normal 136-[address] [facility] Comment on above: Order Comment: Speci men Type: BLOOD SPECIMENOrdering Facility: [facility] Address: [address] [place] [address] Performed By: #### 2 4362-6 ####[facility] LABCLIA [id number] [place] [address] [place] Urea nitrogen [Mass/Vol] 12 mg/dL Normal 7-21 [facility] Comment on above: Order Comment: Speci men Type: BLOOD SPECIMENOrdering Facility: [facility] Address: [address] [place], [place] [address] Performed By: #### 2 4362-6 ####[facility] LABCLIA [id number] [place] [id number] [place] BSCAN OD (RIGHT EYE)on 07-[address] [facility] Radiology Study observation (narrative) [facility] CBC panel Auto (Bld)on 07-12 Erythrocyte distribution width (RBC) [Ratio] 17.8 % High 11.5-15.0 [facility] Comment on above: Order Comment: Speci men Type: BLOOD SPECIMENOrdering Facility: [facility] Address: [address] [place] [address] Performed By: #### 5 8410-2 ####[facility] LABCLIA [id number] [place] [address] [place] Hematocrit (Bld) [Volume fraction] 34.7 % Low 36.0-46.0 [facility] Comment on above: Order Comment: Speci men Type: BLOOD SPECIMENOrdering Facility: [facility] Address: [address] [place] [address] Performed By: #### 5 8410-2 ####[facility] LABCLIA [id number] [place] [address] [place] Hemoglobin (Bld) [Mass/Vol] 10.6 g/dL Low 11.5-15.5 [facility] Comment on above: Order Comment: Speci men Type: BLOOD SPECIMENOrdering Facility: [facility] Address: [address] [place] [address] Performed By: #### 5 8410-2 ####[facility] LABCLIA [id number] [place] [address] [place] MCH (RBC) [Entitic mass] 26.4 pg Normal 26.0-34.0 [facility] Comment on above: Order Comment: Speci men Type: BLOOD SPECIMENOrdering Facility: [facility] Address: [address] [place] [address] Performed By: #### 5 8410-2 ####[facility] LABCLIA [id number] [place] [address] [place] MCHC (RBC) [Mass/Vol] 30.5 g/dL Normal 30.5-36.0 [facility] Comment on above: Order Comment: Speci men Type: BLOOD SPECIMENOrdering Facility: [facility] Address: [address] [place] [address] Performed By: #### 5 8410-2 ####[facility] LABCLIA [id number] [place] [address] [place] MCV (RBC) [Entitic vol] 86.3 fL Normal 80.0-100.0 C [facility] Comment on above: Order Comment: Speci men Type: BLOOD SPECIMENOrdering Facility: [facility] Address: [address] [place] [address] Performed By: #### 5 8410-2 ####[facility] LABIA [id number] [place] [address] [place] Nucleated RBC (Bld) [#/Vol] 10*3/uL Normal <0.01 [facility] Comment on above: Order Comment: Speci men Type: BLOOD SPECIMENOrdering Facility: [facility] Address: [address] [place] [address] Performed By: #### 5 8410-2 ####[facility] LABIA [id number] [place] [address] [place] Platelet mean volume (Bld) [Entitic vol] 9.9 fL Normal 9.0-12.7 [facility] Comment on above: Order Comment: Speci men Type: BLOOD SPECIMENOrdering Facility: [facility] Address: [address] [place] [address] Performed By: #### 5 8410-2 ####[facility] LABIA [id number] [place] [address] [place] Platelets (Bld) [#/Vol] 301 10*3/uL Normal 150-400 [facility] Comment on above: Order Comment: Speci men Type: BLOOD SPECIMENOrdering Facility: [facility] Address: [address] [place] [address] Performed By: #### 5 8410-2 ####[facility] LABIA [id number] [place] [address] [place] RBC (Bld) [#/Vol] 4.02 10*6/uL Normal 3.90-5.20 [facility] Comment on above: Order Comment: Speci men Type: BLOOD SPECIMENOrdering Facility: [facility] Address: [address] [place] [address] Performed By: #### 5 8410-2 ####[facility] LABCLIA [id number] [place] [address] [place] WBC (Bld) [#/Vol] 10.07 10*3/uL Normal 3.70-11.00 [facility] Comment on above: Order Comment: Speci men Type: BLOOD SPECIMENOrdering Facility: [facility] Address: [address] [place] [address] Performed By: #### 5 8410-2 ####[facility] LABCLIA [id number] [place] [address] [place] PT EDon 07-12-2024 PT ED HNO ID: [id number] Author: GISSELL POPE RPh Service: Pharmacy Author [...] inpatient anticoagulant education. Gissell Pope RPh Normal [facility] Renal function 2000 panelon 07-12-2024 Albumin [Mass/Vol] 3.4 g/dL Low 3.9-4.[address] [facility] Comment on above: Order Comment: Speci men Type: BLOOD SPECIMENOrdering Facility: [facility] Address: [address] [place], [place] [address] Performed By: #### 2 4362-6 ####[facility] LABCLIA [id number] [place] [id number] [place] Anion gap [Moles/Vol] 14 mmol/L Normal 8-15 [facility] Comment on above: Order Comment: Speci men Type: BLOOD SPECIMENOrdering Facility: [facility] Address: [address] [place] [address] Performed By: #### 2 4362-6 ####[facility] LABCLIA [id number] [place] [address] [place] Calcium [Mass/Vol] 9.3 mg/dL Normal 8.5-10.[address] [facility] Comment on above: Order Comment: Speci men Type: BLOOD SPECIMENOrdering Facility: [facility] Address: [address] [place] [address] Performed By: #### 2 4362-6 ####[facility] LABCLIA [id number] [place] [address] [place] Chloride [Moles/Vol] 101 mmol/L Normal 98-107 [facility] Comment on above: Order Comment: Speci men Type: BLOOD SPECIMENOrdering Facility: [facility] Address: [address] [place] [address] Performed By: #### 2 4362-6 ####[facility] LABCLIA [id number] [place] [id number] [place] CO2 [Moles/Vol] 21 mmol/L Low 22-30 [facility] Comment on above: Order Comment: Speci men Type: BLOOD SPECIMENOrdering Facility: [facility] Address: [address] [place], [place] [address] Performed By: #### 2 4362-6 ####[facility] LABCLIA [id number] [place] [address] [place] Creatinine [Mass/Vol] 0.81 mg/dL Normal 0.58-0.96 [facility] Comment on above: Order Comment: Rhina mason Type: BLOOD SPECIMENOrdering Facility: [facility] Address: [address] [place] [address] Performed By: #### 2 4362-6 ####[facility] LABIA [id number] [address] [facility] Creatinine and Glomerular filtration rate.predicted panel (S/P/Bld) 72 mL/min/1.73m??? Normal >=60 [facility] Comment on above: Order Comment: Rhina mason Type: BLOOD SPECIMENOrdering Facility: [facility] Address: [address] [place] [address] Result Comment: Isa mated Glomerular Filtration Rate [...] actual GFR. Performed By: #### 2 4362-6 ####[facility] LABIA [id number] [place] [address] [place] Glucose [Mass/Vol] 100 mg/dL High 74-[address] [facility] Comment on above: Order Comment: Rhina mason Type: BLOOD SPECIMENOrdering Facility: [facility] Address: [address] [place] [address] Result Comment: The [place] [employer] (ADA) provides guidance for cutoff [...] Standards of Medical Care in Diabetes 2016, [place] [employer]. Diabetes Care. 2016.39(Suppl 1). Performed By: #### 2 4362-6 ####[facility] LABCLIA [id number] [address] [address] [place] Phosphate [Mass/Vol] 2.7 mg/dL Normal 2.7-4.8 [facility] Comment on above: Order Comment: Speci men Type: BLOOD SPECIMENOrdering Facility: [facility] Address: [address] [place] [address] Performed By: #### 2 4362-6 ####[facility] LABIA [id number] [place] [address] [place] Potassium [Moles/Vol] 4.0 mmol/L Normal 3.7-5.1 [facility] Comment on above: Order Comment: Speci men Type: BLOOD SPECIMENOrdering Facility: [facility] Address: [address] [place], [place] [address] Performed By: #### 2 4362-6 ####[facility] LABIA [id number] [place] [id number] [place] Sodium [Moles/Vol] 136 mmol/L Normal 136-[address] [facility] Comment on above: Order Comment: Speci men Type: BLOOD SPECIMENOrdering Facility: [facility] Address: [address] [place] [address] Performed By: #### 2 4362-6 ####[facility] LABIA [id number] [place] [id number] [place] Urea nitrogen [Mass/Vol] 12 mg/dL Normal 7-21 [facility] Comment on above: Order Comment: Speci men Type: BLOOD SPECIMENOrdering Facility: [facility] Address: [address] [place] [address] Performed By: #### 2 4362-6 ####[facility] LABCLIA [id number] [place] [address] [place] Right eye Photo documentatio non 07-12-[address] [facility] Radiology Study observation (narrative) Amarjit chaudhry [facility] THERAPY NTon 07-12-2024 THERAPY NT HNO ID: [id number] Author: RYANN GUZMÁN OT/L Service: Occupational Therapy Author Type: Occupational Therapist Type: Therapy (PT/OT/Speech/Resp) Filed: 07/12/2024 12:26 Note Text: OCCUPATIONAL THERAPY MISSED VISIT SERVICE DATE: 07/12/2024 SERVICE TIME: 1226 ROOM: [place] [address] ([facility] OPHTHALMOLOGY) Patient not seen due to Test / Procedure. SIGNATURE: JUANY Willett PATIENT NAME: Mel Castillo DATE: July 12, 2024 TIME: 12:26 PM Normal [facility] CBC panel Auto (Bld)on 07-11 Erythrocyte distribution width (RBC) [Ratio] 17.6 % High 11.5-15.0 [facility] Comment on above: Order Comment: Speci men Type: BLOOD SPECIMEN [facility] Address: [address] [place] [address] Performed By: #### 5 8410-2 #### [facility] CLIA [id number] [address] [place] [address] [place] Hematocrit (Bld) [Volume fraction] 32.3 % Low 36.0-46.0 [facility] Comment on above: Order Comment: Speci men Type: BLOOD SPECIMEN Ordering [facility]: [facility] Address: [address] [place] [address] Performed By: #### 5 8410-2 #### [facility] CLIA [id number] [address] [place] [address] [place] Hemoglobin (Bld) [Mass/Vol] 10.5 g/dL Low 11.5-15.5 [facility] Comment on above: Order Comment: Speci men Type: BLOOD SPECIMEN [facility]: [facility] Address: [address] [place] [address] Performed By: #### 5 8410-2 #### [facility] CLIA [id number] [address] [place] [address] [place] MCH (RBC) [Entitic mass] 27.0 pg Normal 26.0-34.0 [facility] Comment on above: Order Comment: Speci men Type: BLOOD SPECIMEN [facility]ing [facility]: [facility] Address: [address] [place] [address] Performed By: #### 5 8410-2 #### [facility] CLIA [id number] [address] [place] [address] [place] MCHC (RBC) [Mass/Vol] 32.5 g/dL Normal 30.5-36.0 [facility] Comment on above: Order Comment: Speci men Type: BLOOD SPECIMEN [facility]ing [facility]: [facility] Address: [address] [place] [address] Performed By: #### 5 8410-2 #### [facility] CLIA [id number] [address] [place] [address] [place] MCV (RBC) [Entitic vol] 83.0 fL Normal 80.0-100.0 C [facility] Comment on above: Order Comment: Speci men Type: BLOOD SPECIMEN Ordering [facility]: [facility] Address: [address] [place] [address] Performed By: #### 5 8410-2 #### [facility] CLIA [id number] [address] [place] [address] [place] Nucleated RBC (Bld) [#/Vol] 10*3/uL Normal <0.01 [facility] Comment on above: Order Comment: Speci men Type: BLOOD SPECIMEN [facility]ing [facility]: [facility] Address: [address] [place] [address] Performed By: #### 5 8410-2 #### [facility] CLIA [id number] [address] [place], [place] [id number] [place] Platelet mean volume (Bld) [Entitic vol] 9.9 fL Normal 9.0-12.7 [facility] Comment on above: Order Comment: Speci men Type: BLOOD SPECIMEN [facility]ing [facility]: [facility] Address: [address] [place] [address] Performed By: #### 5 8410-2 #### [facility] CLIA [id number] [address] [place] [address] [place] Platelets (Bld) [#/Vol] 289 10*3/uL Normal 150-400 [facility] Comment on above: Order Comment: Speci men Type: BLOOD SPECIMEN Ordering [facility]: [facility] Address: [address] [place] [address] Performed By: #### 5 8410-2 #### [facility] CLIA [id number] [address] [place] [address] [place] RBC (Bld) [#/Vol] 3.89 10*6/uL Low 3.90-5.20 [facility] Comment on above: Order Comment: Speci men Type: BLOOD SPECIMEN Ordering [facility]: [facility] Address: [address] [place] [address] Performed By: #### 5 8410-2 #### [facility] CLIA [id number] [address] [place] [address] [place] WBC (Bld) [#/Vol] 8.32 10*3/uL Normal 3.70-11.00 [facility] Comment on above: Order Comment: Speci men Type: BLOOD SPECIMEN Ordering [facility]: [facility] Address: [address] [place] [address] Performed By: #### 5 8410-2 #### [facility] CLIA [id number] [address] [place] [address] [place] Renal function 2000 panelon 07-11-2024 Albumin [Mass/Vol] 3.4 g/dL Low 3.9-4.[address] [facility] Comment on above: Order Comment: Speci men Type: BLOOD SPECIMENOrdering Facility: [facility] Address: [address] [place] [address] Performed By: #### 2 4362-6 ####[facility] LABCLIA [id number] [place] [address] [place] Anion gap [Moles/Vol] 11 mmol/L Normal 8-15 [facility] Comment on above: Order Comment: Speci men Type: BLOOD SPECIMENOrdering Facility: [facility] Address: [address] [place] [address] Performed By: #### 2 4362-6 ####[facility] LABCLIA [id number] [place] [address] [place] Calcium [Mass/Vol] 8.9 mg/dL Normal 8.5-10.[address] [facility] Comment on above: Order Comment: Speci men Type: BLOOD SPECIMENOrdering Facility: [facility] Address: [address] [place] [address] Performed By: #### 2 4362-6 ####[facility] LABCLIA [id number] [place] [address] [place] Chloride [Moles/Vol] 103 mmol/L Normal 98-107 [facility] Comment on above: Order Comment: Speci men Type: BLOOD SPECIMENOrdering Facility: [facility] Address: [address] [place] [address] Performed By: #### 2 4362-6 ####[facility] LABCLIA [id number] [place] [id number] [place] CO2 [Moles/Vol] 23 mmol/L Normal 22-30 [facility] Comment on above: Order Comment: Speci men Type: BLOOD SPECIMENOrdering Facility: [facility] Address: [address] [place] [id number] Performed By: #### 2 4362-6 ####[facility] LABIA [id number] [place] [address] [place] Creatinine [Mass/Vol] 0.91 mg/dL Normal 0.58-0.96 [facility] Comment on above: Order Comment: Speci men Type: BLOOD SPECIMENOrdering Facility: [facility] Address: [address] [place] [address] Performed By: #### 2 4362-6 ####[facility] LABIA [id number] [place] [address] [place] Creatinine and Glomerular filtration rate.predicted panel (S/P/Bld) 62 mL/min/1.73m??? Normal >=60 [facility] Comment on above: Order Comment: Samiri men Type: BLOOD SPECIMENOrdering Facility: [facility] Address: [address] [place] [address] Result Comment: Isa mated Glomerular Filtration Rate [...] actual GFR. Performed By: #### 2 4362-6 ####[facility] LABIA [id number] [place] [id number] [place] Glucose [Mass/Vol] 98 mg/dL Normal 74-99 [facility] [facility] Comment on above: Order Comment: Samiri men Type: BLOOD SPECIMENOrdering Facility: [facility] Address: [address] [place] [address] Result Comment: The [place] [employer] (ADA) provides guidance for cutoff [...] Standards of Medical Care in Diabetes 2016, [place] [employer]. Diabetes Care. 2016.39(Suppl 1). Performed By: #### 2 4362-6 ####[facility] [id number] [place] [address] [place] Phosphate [Mass/Vol] 2.8 mg/dL Normal 2.7-4.8 [facility] Comment on above: Order Comment: Speci men Type: BLOOD SPECIMENOrdering Facility: [facility] Address: [address] [place] [address] Performed By: #### 2 4362-6 ####[facility] [id number] [place] [address] [place] Potassium [Moles/Vol] 3.6 mmol/L Low 3.7-5.1 [facility] Comment on above: Order Comment: Speci men Type: BLOOD SPECIMENOrdering Facility: [facility] Address: [address] [place] [address] Performed By: #### 2 4362-6 ####[facility] [id number] [place] [address] [place] Sodium [Moles/Vol] 137 mmol/L Normal 136-[address] [facility] Comment on above: Order Comment: Speci men Type: BLOOD SPECIMENOrdering Facility: [facility] Address: [address] [place] [address] Performed By: #### 2 4362-6 ####[facility] [id number] [place] [address] [place] Urea nitrogen [Mass/Vol] 15 mg/dL Normal 7-21 [facility] Comment on above: Order Comment: Rhina mason Type: BLOOD SPECIMENOrdering Facility: [facility] Address: [address] [place] [address] Performed By: #### 2 4362-6 ####[facility] [id number] [address] [place] CASE MANAGEMon 07-10-2024 CASE MANAGEM HNO ID: [id number] Author: MYA HUGHES LSW Service: Social Work Author Type: Property Portfolio Officer Type: Care Mgt Progress Note Filed: 07/10/2024 14:42 Note Text: CARE MANAGEMENT PROGRESS NOTE SERVICE DATE: 07/10/2024 SERVICE TIME: 2:38 PM LOS: 3 days Post-Acute Discharge Planning Patient Goal(s): Increase strength [place] of Choice Explained: [place] of Choice Given: Yes Post-Acute Discharge Plan: [...] July 10, 2024 TIME: 2:38 PM Normal [facility] CBC panel Auto (Bld)on 07-10 Erythrocyte distribution width (RBC) [Ratio] 17.5 % High 11.5-15.0 [facility] Comment on above: Order Comment: Rhina mason Type: BLOOD SPECIMEN Ordering Facility: [facility] Address: [address] [place] [address] Performed By: #### 2 276-4 #### [facility] CLIA [id number] [address] [place] [address] [place] Hematocrit (Bld) [Volume fraction] 31.7 % Low 36.0-46.0 [facility] Comment on above: Order Comment: Rhina mason Type: BLOOD SPECIMEN Ordering Facility: [facility] Address: [address] [place] [address] Performed By: #### 2 276-4 #### [facility] CLIA [id number] [address] [place] [address] [place] Hemoglobin (Bld) [Mass/Vol] 9.9 g/dL Low 11.5-15.5 [facility] Comment on above: Order Comment: Speci men Type: BLOOD SPECIMEN Ordering Facility: [facility] Address: [address] [place] [address] Performed By: #### 2 276-4 #### [facility] CLIA [id number] [address] [place] [address] [place] MCH (RBC) [Entitic mass] 26.0 pg Normal 26.0-34.0 [facility] Comment on above: Order Comment: Speci men Type: BLOOD SPECIMEN Ordering Facility: [facility] Address: [address] [place] [address] Performed By: #### 2 276-4 #### [facility] CLIA [id number] [address] [place] [address] [place] MCHC (RBC) [Mass/Vol] 31.2 g/dL Normal 30.5-36.0 [facility] Comment on above: Order Comment: Speci men Type: BLOOD SPECIMEN Ordering Facility: [facility] Address: [address] [place] [address] Performed By: #### 2 276-4 #### [facility] CLIA [id number] [address] [place] [address] [place] MCV (RBC) [Entitic vol] 83.2 fL Normal 80.0-100.0 [facility] Comment on above: Order Comment: Speci men Type: BLOOD SPECIMEN Ordering Facility: [facility] Address: [address] [place] [address] Performed By: #### 2 276-4 #### [facility] CLIA [id number] [address] [place] [address] [place] Nucleated RBC (Bld) [#/Vol] 10*3/uL Normal <0.01 [facility] Comment on above: Order Comment: Speci men Type: BLOOD SPECIMEN Ordering Facility: [facility] Address: [address] [place] [address] Performed By: #### 2 276-4 #### [facility] CLIA [id number] [address] [place] [address] [place] Platelet mean volume (Bld) [Entitic vol] 10.3 fL Normal 9.0-12.7 [facility] Comment on above: Order Comment: Speci men Type: BLOOD SPECIMEN Ordering Facility: [facility] Address: [address] [place] [address] Performed By: #### 2 276-4 #### [facility] CLIA [id number] [address] [place] [address] [place] Platelets (Bld) [#/Vol] 336 10*3/uL Normal 150-400 [facility] Comment on above: Order Comment: Speci men Type: BLOOD SPECIMEN Ordering Facility: [facility] Address: [address] [place] [address] Performed By: #### 2 276-4 #### [facility] CLIA [id number] [address] [place] [address] [place] RBC (Bld) [#/Vol] 3.81 10*6/uL Low 3.90-5.20 [facility] Comment on above: Order Comment: Speci men Type: BLOOD SPECIMEN Ordering Facility: [facility] Address: [address] [place] [address] Performed By: #### 2 276-4 #### [facility] CLIA [id number] [address] [place] [address] [place] WBC (Bld) [#/Vol] 6.35 10*3/uL Normal 3.70-11.00 [facility] Comment on above: Order Comment: Speci men Type: BLOOD SPECIMEN Ordering Facility: [facility] Address: [address] [place] [address] Performed By: #### 2 276-4 #### [facility] CLIA [id number] [address] [place] [address] [place] Renal function 2000 panelon 07-10-2024 Albumin [Mass/Vol] 3.5 g/dL Low 3.9-4.[address] [facility] Comment on above: Order Comment: Speci men Type: BLOOD SPECIMEN [facility] Address: [address] [place] [address] Performed By: #### 2 4362-6 #### [facility] CLIA [id number] [address] [place] [address] [place] Anion gap [Moles/Vol] 12 mmol/L Normal 8-15 [facility] Comment on above: Order Comment: Speci men Type: BLOOD SPECIMEN Ordering [facility]: [facility] Address: [address] [place] [address] Performed By: #### 2 4362-6 #### [facility] CLIA [id number] [address] [place] [address] [place] Calcium [Mass/Vol] 9.0 mg/dL Normal 8.5-10.[address] [facility] Comment on above: Order Comment: Speci men Type: BLOOD SPECIMEN [facility] Address: [address] [place] [address] Performed By: #### 2 4362-6 #### [facility] CLIA [id number] [address] [place] [address] [place] Chloride [Moles/Vol] 104 mmol/L Normal 98-107 [facility] Comment on above: Order Comment: Speci men Type: BLOOD SPECIMEN [facility] Address: [address] [place] [address] Performed By: #### 2 4362-6 #### [facility] CLIA [id number] [address] [place], [place] [address] [place] CO2 [Moles/Vol] 22 mmol/L Normal 22-30 [facility] Comment on above: Order Comment: Speci men Type: BLOOD SPECIMEN [facility] Address: [address] [place] [address] Performed By: #### 2 4362-6 #### [facility] CLIA [id number] [address] [place] [address] [place] Creatinine [Mass/Vol] 0.93 mg/dL Normal 0.58-0.96 [facility] Comment on above: Order Comment: Speci men Type: BLOOD SPECIMEN [facility] Address: [address] [place] [address] Performed By: #### 2 4362-6 #### [facility] CLIA [id number] [address] [place] [address] [place] Creatinine and Glomerular filtration rate.predicted panel (S/P/Bld) 61 mL/min/1.73m??? Normal >=60 [facility] Comment on above: Order Comment: Speci men Type: BLOOD SPECIMEN [facility] Address: [address] [place] [address] Result Comment: Isa mated Glomerular Filtration Rate [...] GFR. Performed By: #### 2 4362-6 #### [facility] CLIA [id number] [address] [place] [address] [place] Glucose [Mass/Vol] 102 mg/dL High 74-[address] [facility] Comment on above: Order Comment: Speci men Type: BLOOD SPECIMEN [facility]ing [facility]: [facility] Address: [address] [place] [address] Result Comment: The [place] [employer] (ADA) provides guidance for cutoff [...] Standards of Medical Care in Diabetes 2016, [place] [employer]. Diabetes Care. 2016.39(Suppl 1). Performed By: #### 2 4362-6 #### [facility] CLIA [id number] [address] [place] [address] [place] Phosphate [Mass/Vol] 2.6 mg/dL Low 2.7-4.8 [facility] Comment on above: Order Comment: Speci men Type: BLOOD SPECIMEN [facility]ing [facility]: [facility] Address: [address] [place] [address] Performed By: #### 2 4362-6 #### [facility] CLIA [id number] [address] [place] [address] [place] Potassium [Moles/Vol] 3.9 mmol/L Normal 3.7-5.1 [facility] Comment on above: Order Comment: Speci men Type: BLOOD SPECIMEN [facility]: [facility] Address: [address] [place] [address] Performed By: #### 2 4362-6 #### [facility] CLIA [id number] [address] [place] [address] [place] Sodium [Moles/Vol] 138 mmol/L Normal 136-[address] [facility] Comment on above: Order Comment: Speci men Type: BLOOD SPECIMEN [facility]ing [facility]: [facility] Address: [address] [place] [address] Performed By: #### 2 4362-6 #### [facility] CLIA [id number] [address] [place] [address] [place] Urea nitrogen [Mass/Vol] 21 mg/dL Normal 7-21 [facility] Comment on above: Order Comment: Speci men Type: BLOOD SPECIMEN [facility] Address: [address] [place] [address] Performed By: #### 2 4362-6 #### [facility] CLIA [id number] [address] [place] [address] [place] THERAPY NTon 07-10-2024 THERAPY NT HNO ID: [id number] Author: SANTIAGO GUZMAN OT/L Service: Occupational Therapy Author Type: Occupational Therapist Type: Therapy (PT/OT/Speech/Resp) Filed: 07/10/2024 10:00 Note Text: Occupational Therapy Evaluation Summary SERVICE DATE: 07/10/2024 SERVICE TIME: 0840 to 0920 ROOM: [place] [address] OT 6 Clicks Score: 15 DISCHARGE RECOMMENDATIONS [...] Pt reports only being able to see shadows and occasionally 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 SNF rec at this time pending [...] Muscle Weakness (generalized) TREATMENT INTERVENTIONS Evaluation, Self Long Term Management (55603) Timed Code Treatment (minutes): 25 Skilled Treatment [...] Sit to Stand, Standing Balance to Improve [place] with ADLs/Self-Care, Sitting Balance to Improve [place] with ADLs/Self-Care, Life Roles/Routines/Habits THERAPEUTIC SKILLS USED Therapeutic Use of Self, Physical Assist, Movement Facilitation, Management of Critical Lines, Tubes and/or Drains FUNCTIONAL STATUS Activities of Daily Living Assist Level Additional Information Feeding Minimal Assistance Grooming Moderate Assistance Bathing Upper Body Minimal Assistance Bathing Lower Body Ma (more content not included)... Normal [facility] CBC panel Auto (Bld)on 07-09 Erythrocyte distribution width (RBC) [Ratio] 17.7 % High 11.5-15.0 [facility] Comment on above: Order Comment: Speci isabella Type: BLOOD SPECIMEN [facility] Address: [address] [place] [address] Performed By: #### 2 4362-6 #### [facility] CLIA [id number] [address] [place] [address] [place] Hematocrit (Bld) [Volume fraction] 33.9 % Low 36.0-46.0 [facility] Comment on above: Order Comment: Rhina mason Type: BLOOD SPECIMEN [facility]: [facility] Address: [address] [place] [address] Performed By: #### 2 4362-6 #### [facility] CLIA [id number] [address] [place] [address] [place] Hemoglobin (Bld) [Mass/Vol] 10.5 g/dL Low 11.5-15.5 [facility] Comment on above: Order Comment: Samiri men Type: BLOOD SPECIMEN [facility] Address: [address] [place] [address] Performed By: #### 2 4362-6 #### [facility] CLIA [id number] [address] [place] [address] [place] MCH (RBC) [Entitic mass] 26.6 pg Normal 26.0-34.0 [facility] Comment on above: Order Comment: Speci men Type: BLOOD SPECIMEN [facility] Address: [address] [place] [address] Performed By: #### 2 4362-6 #### [facility] CLIA [id number] [address] [place] [address] [place] MCHC (RBC) [Mass/Vol] 31.0 g/dL Normal 30.5-36.0 [facility] Comment on above: Order Comment: Speci men Type: BLOOD SPECIMEN [facility]: [facility] Address: [address] [place] [address] Performed By: #### 2 4362-6 #### [facility] CLIA [id number] [address] [place] [address] [place] MCV (RBC) [Entitic vol] 86.0 fL Normal 80.0-100.0 [facility] Comment on above: Order Comment: Speci men Type: BLOOD SPECIMEN Ordering [facility]: [facility] Address: [address] [place] [address] Performed By: #### 2 4362-6 #### [facility] CLIA [id number] [address] [place] [address] [place] Nucleated RBC (Bld) [#/Vol] 10*3/uL Normal <0.01 [facility] Comment on above: Order Comment: Speci men Type: BLOOD SPECIMEN Ordering [facility] Address: [address] [place] [address] Performed By: #### 2 4362-6 #### [facility] CLIA [id number] [address] [place] [address] [place] Platelet mean volume (Bld) [Entitic vol] 10.4 fL Normal 9.0-12.7 [facility] Comment on above: Order Comment: Speci men Type: BLOOD SPECIMEN [facility] Address: [address] [place] [address] Performed By: #### 2 4362-6 #### [facility] CLIA [id number] [address] [place] [address] [place] Platelets (Bld) [#/Vol] 346 10*3/uL Normal 150-400 [facility] Comment on above: Order Comment: Speci men Type: BLOOD SPECIMEN [facility] Address: [address] [place] [address] Performed By: #### 2 4362-6 #### [facility] CLIA [id number] [address] [place] [address] [place] RBC (Bld) [#/Vol] 3.94 10*6/uL Normal 3.90-5.20 [facility] Comment on above: Order Comment: Speci men Type: BLOOD SPECIMEN Ordering [facility]: [facility] Address: [address] [place] [address] Performed By: #### 2 4362-6 #### [facility] CLIA [id number] [address] [place] [address] [place] WBC (Bld) [#/Vol] 8.22 10*3/uL Normal 3.70-11.00 [facility] Comment on above: Order Comment: Speci men Type: BLOOD SPECIMEN Ordering [facility]: [facility] Address: [address] [place] [address] Performed By: #### 2 4362-6 #### [facility] CLIA [id number] [address] [place] [address] [place] Renal function 2000 panelon 07-09-2024 Albumin [Mass/Vol] 3.6 g/dL Low 3.9-4.[address] [facility] Comment on above: Order Comment: Speci men Type: BLOOD SPECIMEN Ordering [facility]: [facility] Address: [address] [place] [address] Performed By: #### 2 4362-6 #### [facility] CLIA [id number] [address] [address] [place] Anion gap [Moles/Vol] 11 mmol/L Normal 8-15 [facility] Comment on above: Order Comment: Speci men Type: BLOOD SPECIMEN Ordering Facility: [facility] Address: [address] [place], [place] [address] Performed By: #### 2 4362-6 #### [facility] CLIA [id number] [address] [place] [address] [place] Calcium [Mass/Vol] 8.8 mg/dL Normal 8.5-10.[address] [facility] Comment on above: Order Comment: Speci men Type: BLOOD SPECIMEN Ordering [facility]: [facility] Address: [address] [place] [address] Performed By: #### 2 4362-6 #### [facility] CLIA [id number] [address] [place], [place] [address] [place] Chloride [Moles/Vol] 103 mmol/L Normal 98-107 [facility] Comment on above: Order Comment: Speci men Type: BLOOD SPECIMEN Ordering Facility: [facility] Address: [address] [place], [place] [address] Performed By: #### 2 4362-6 #### [facility] CLIA [id number] [address] [place], [place] [address] [place] CO2 [Moles/Vol] 22 mmol/L Normal 22-30 [facility] Comment on above: Order Comment: Speci men Type: BLOOD SPECIMEN Ordering Facility: [facility] Address: [address] [place], [place] [address] Performed By: #### 2 4362-6 #### [facility] CLIA [id number] [address] [place], [place] [address] [place] Creatinine [Mass/Vol] 0.94 mg/dL Normal 0.58-0.96 [facility] Comment on above: Order Comment: Rhina mason Type: BLOOD SPECIMEN Ordering [facility]: [facility] Address: [address] [place] [address] Performed By: #### 2 4362-6 #### [facility] CLIA [id number] [address] [place] [address] [place] Creatinine and Glomerular filtration rate.predicted panel (S/P/Bld) 60 mL/min/1.73m??? Normal >=60 [facility] Comment on above: Order Comment: Rhina mason Type: BLOOD SPECIMEN Ordering [facility]: [facility] Address: [address] [place] [address] Result Comment: Isa mated Glomerular Filtration Rate [...] GFR. Performed By: #### 2 4362-6 #### [facility] CLIA [id number] [address] [place] [address] [place] Glucose [Mass/Vol] 158 mg/dL High 74-[address] [facility] Comment on above: Order Comment: Rhina mason Type: BLOOD SPECIMEN Ordering Facility: [facility] Address: [address] [place] [address] Result Comment: The [place] [employer] (ADA) provides guidance for cutoff [...] Standards of Medical Care in Diabetes 2016, [place] [employer]. Diabetes Care. 2016.39(Suppl 1). Performed By: #### 2 4362-6 #### [facility] CLIA [id number] [address] [place] [address] [place] Phosphate [Mass/Vol] 2.0 mg/dL Low 2.7-4.8 [facility] Comment on above: Order Comment: Speci men Type: BLOOD SPECIMEN Ordering Facility: [facility] Address: [address] [place] [address] Performed By: #### 2 4362-6 #### [facility] CLIA [id number] [address] [place] [address] [place] Potassium [Moles/Vol] 4.1 mmol/L Normal 3.7-5.1 [facility] Comment on above: Order Comment: Speci men Type: BLOOD SPECIMEN Ordering Facility: [facility] Address: [address] [place] [address] Performed By: #### 2 4362-6 #### [facility] CLIA [id number] [address] [place] [address] [place] Sodium [Moles/Vol] 136 mmol/L Normal 136-[address] [facility] Comment on above: Order Comment: Speci men Type: BLOOD SPECIMEN Ordering Facility: [facility] Address: [address] [place] [address] Performed By: #### 2 4362-6 #### [facility] CLIA [id number] [address] [place] [address] [place] Urea nitrogen [Mass/Vol] 18 mg/dL Normal 7-21 [facility] Comment on above: Order Comment: Speci men Type: BLOOD SPECIMEN Ordering Facility: [facility] Address: [address] [place] [address] Performed By: #### 2 4362-6 #### [facility] CLIA [id number] [address] [place] [address] [place] CONSULTon 12-22-2024 CONSULT HNO ID: [id number] Author: JARED GILMORE MD Service: Ophthalmology Author [...] Mon-Tue, 7 am - 5 pm, page [phone] Mon-Tue, 5 pm - 7 am, page [phone] Weekends (Fri 5 pm to Mon 7 am), page [phone] EXAM: Base Eye Exam Visual Acuity Right Left Dist sc CF at 3' Tonometry (Applanation, 8:30 AM) Right Left Pressure 14 Pupils Dark Light Shape React Right 6 (more content not included)... Normal [facility] [id number] 07-07-2024 [id number] Normal [facility] BASIC METABOLIC PANELon - Anion gap [Moles/Vol] 4 mmol/L Normal 3-[address] [facility] Comment on above: Performed By: #### L AB15 ####Software Writer: VELMA VALADEZ ([id number])[facility])[address] [place] [address] Calcium [Mass/Vol] 8.7 mg/dL Low 8.8-10.0 [facility] Comment on above: Performed By: #### L AB15 ####Software Writer: VELMA VALADEZ ([id number])[facility] ([facility])[address] [place] [address] Chloride [Moles/Vol] 111 mmol/L High 98-107 [facility] Comment on above: Performed By: #### L AB15 ####Software Writer: VELMA VALADEZ ([id number])[facility] ([facility])[address] [place] [address] CO2 [Moles/Vol] 23 mmol/L Normal 23-31 [facility] Comment on above: Performed By: #### L AB15 ####Software Writer: VELMA VALADEZ ([id number])[facility])[address] [place] [address] Creatinine [Mass/Vol] 0.84 mg/dL Normal 0.57-1.[address] [facility] Comment on above: Performed By: #### L AB15 ####Software Writer: VELMA VALADEZ ([id number])[facility])[address] [place] [address] GLOMERULAR FILTRATION RATE ML/MIN/1.73 SQ M.PREDICTED 68.6 mL/min/1.73m*2 Normal >60.0 [facility] Comment on above: Result Comment: Calc ulation based on the Chronic Kidney Disease Epidemiology Collaboration (CKD-EPI) equation refit without adjustment for race Performed By: #### L AB15 ####Software Writer: VELMA VALADEZ ([phone])[facility])[address] [place] [address] Glucose [Mass/Vol] 102 mg/dL Normal 82-115 [facility] Comment on above: Performed By: #### L AB15 ####Software Writer: VELMA VALADEZ ([id number])[facility])[address] [place] [address] Potassium [Moles/Vol] 4.0 mmol/L Normal 3.5-5.[address] [facility] Comment on above: Result Comment: [facility] potassium values may be up to 0.5 mmol/L lower than serum values. Performed By: #### L AB15 ####Software Writer: VELMA VALADEZ ([phone])[facility])[address] [place] [address] Sodium [Moles/Vol] 138 mmol/L Normal 136-145 [facility] Comment on above: Performed By: #### L AB15 ####Software Writer: VELMA VALADEZ ([id number])[facility] ([facility])[address] [place] [address] Urea nitrogen [Mass/Vol] 19 mg/dL Normal 9-23 [facility] [employer] Comment on above: Performed By: #### L AB15 ####Software Writer: VELMA VALADEZ ([id number])[facility] ([facility])[address] [place] [address] Basic metabolic 1998 panelon 07-07-2024 Anion gap [Moles/Vol] 4 mmol/L 3 - 13 mmol/L [facility] [employer] Calcium [Mass/Vol] 8.7 mg/dL Low 8.8 - 10. 0 mg/dL [facility] [employer] Chloride [Moles/Vol] 111 mmol/L High 98 - 10 7 mmol/L [facility] [employer] CO2 [Moles/Vol] 23 mmol/L 23 - 31 mmol/L [facility] [employer] Creatinine [Mass/Vol] 0.84 mg/dL 0.57 - 1.11 mg/dL [facility] [employer] GFR/1.73 sq M.predicted (S/P/Bld) [Vol rate/Area] 68.6 mL/min - PINF [facility] [employer] Comment on above: Calculation based on the Chronic Kidney Disease Epidemiology Collaboration (CKD-EPI) equation refit without adjustment for race Glucose [Mass/Vol] 102 mg/dL 82 - 115 mg/dL [facility] Interpretation and review of laboratory results Abnormal [facility] Potassium [Moles/Vol] 4 mmol/L 3.5 - 5.1 mmol/L [facility] Comment on above: Plasma potassium chris ues may be up to 0.5 mmol/L lower than serum values. Sodium [Moles/Vol] 138 mmol/L 136 - 145 mmol/L [facility] [employer] Urea nitrogen [Mass/Vol] 19 mg/dL 9 - 23 mg/dL [facility] CBC W Auto Differential pane l (Bld)Ordered By: Devika Eisenberg on 07-07-2024 Basophils (Bld) [#/Vol] 0 10*3/uL 0.0 - 0.2 10*3/uL [facility] [employer] Basophils/100 WBC (Bld) 0.4 % 0.0 - 2.0 % [facility] Eosinophils (Bld) [#/Vol] 0.1 10*3/uL 0.0 - 0.5 10*3/uL [facility] Health Eosinophils/100 WBC (Bld) 1.3 % 0.0 - 6.0 % [facility] Erythrocyte distribution width (RBC) [Ratio] 17.6 % High 11.5 - 15.0 % [facility] Hematocrit (Bld) [Volume fraction] 29.9 % Low 35.0 - 47.0 % [facility] Hemoglobin (Bld) [Mass/Vol] 9.1 g/dL Low 11.7 - 16.0 g/dL [facility] Immature granulocytes (Bld) [#/Vol] 0 10*3/uL NINF - 0.1 10*3/uL [facility] Immature granulocytes/100 WBC (Bld) 0.2 % 0.0 - 2.0 % [facility] Interpretation and review of laboratory results Abnormal [facility] Lymphocytes (Bld) [#/Vol] 1.2 10*3/uL 1.0 - 4.3 10*3/uL [facility] Lymphocytes/100 WBC (Bld) 22 % 15.0 - 45.0 % [facility] MCH (RBC) [Entitic mass] 25.9 pg Low 26.0 - 34.0 pg [facility] MCHC (RBC) [Mass/Vol] 30.4 % Low 30.5 - 36.0 % [facility] MCV (RBC) [Entitic vol] 84.9 fL 77.0 - 99.0 fL [facility] Monocytes (Bld) [#/Vol] 0.6 10*3/uL 0.0 - 0.9 10*3/uL [facility] Monocytes/100 WBC (Bld) 10 % 5.0 - 13.0 % [facility] Neutrophils (Bld) [#/Vol] 3.7 10*3/uL 1.8 - 7.5 10*3/uL [facility] Neutrophils/100 WBC (Bld) 66.1 % 38.0 - 82.0 % [facility] Nucleated RBC/100 WBC (Bld) [Ratio] 0 % [facility] Platelet mean volume (Bld) [Entitic vol] 9.8 fL 9.0 - 12.7 fL [facility] Platelets (Bld) [#/Vol] 301 10*3/uL 140 - 440 10*3/uL [facility] RBC (Bld) [#/Vol] 3.52 10*6/uL Low 3.80 - 5.2 0 10*6/uL [facility] WBC (Bld) [#/Vol] 5.6 10*3/uL 3.6 - 10.7 10*3/uL [facility] CBC WITH AUTO DIFFERENTIALon 07-07-2024 Basophils (Bld) [#/Vol] 0.0 10*3/uL Normal 0.0-0.2 [facility] Comment on above: Performed By: #### L [id number] ####Software Writer: VELMA VALADEZ ([id number])[facility])[address] [place] [address] Basophils/100 WBC (Bld) 0.4 % Normal 0.0-2.0 [facility] Comment on above: Performed By: #### L [id number] ####Software Writer: VELMA VALADEZ ([id number])[facility])[address] [place] [address] Eosinophils (Bld) [#/Vol] 0.1 10*3/uL Normal 0.0-0.5 [facility] Comment on above: Performed By: #### L [id number] ####Software Writer: VELMA VALADEZ ([id number])[facility])[address] [place] [address] Eosinophils/100 WBC (Bld) 1.3 % Normal 0.0-6.0 [facility] Comment on above: Performed By: #### L [id number] ####Software Writer: VELMA VALADEZ ([id number])[facility])[address] [place] [address] Erythrocyte distribution width (RBC) [Ratio] 17.6 % High 11.5-15.0 [facility] Comment on above: Performed By: #### L [id number] ####Software Writer: VELMA VALADEZ ([id number])[facility])[address] [place] [address] Hematocrit (Bld) [Volume fraction] 29.9 % Low 35.0-47.0 [facility] Comment on above: Performed By: #### L [id number] ####Software Writer: VELMA VALADEZ ([id number])[facility])[address] [place] [address] Hemoglobin (Bld) [Mass/Vol] 9.1 g/dL Low 11.7-16.0 [facility] Comment on above: Performed By: #### L [id number] ####Software Writer: VELMA VALADEZ ([id number])[facility])[address] [place] [address] IMMATURE GRANS % 0.2 % Normal 0.0-2.0 [facility] Comment on above: Performed By: #### L [id number] ####Software Writer: VELMA VALADEZ ([id number])[facility])[address] [place] [address] IMMATURE GRANS ABSOLUTE 0.0 10*3/uL Normal <0.1 [facility] Comment on above: Performed By: #### L [id number] ####Software Writer: VELMA VALADEZ ([id number])[facility])[address] [place] [address] Lymphocytes (Bld) [#/Vol] 1.2 10*3/uL Normal 1.0-4.3 [facility] Comment on above: Performed By: #### L [id number] ####Software Writer: VELMA VALADEZ ([id number])[facility])[address] [place] [address] Lymphocytes/100 WBC (Bld) 22.0 % Normal 15.0-45.0 [facility] Comment on above: Performed By: #### L [id number] ####Software Writer: VELMA VALADEZ ([id number])[facility])[address] [place] [address] MCH (RBC) [Entitic mass] 25.9 pg Low 26.0-34.0 [facility] Comment on above: Performed By: #### L [id number] ####Software Writer: VELMA VALADEZ ([id number])[facility])[address] [place] [address] MCHC 30.4 % Low 30.5-36.0 [facility] Comment on above: Performed By: #### L [id number] ####Software Writer: VELMA VALADEZ ([id number])[facility])[address] [place] [address] MCV (RBC) [Entitic vol] 84.9 fL Normal 77.0-99.0 [facility] Comment on above: Performed By: #### L [id number] ####Software Writer: VELMA VALADEZ ([id number])[facility])[address] [place] [address] Monocytes (Bld) [#/Vol] 0.6 10*3/uL Normal 0.0-0.9 [facility] Comment on above: Performed By: #### L [id number] ####Software Writer: VELMA VALADEZ ([id number])[facility])[address] [place] [address] Monocytes/100 WBC (Bld) 10.0 % Normal 5.0-13.0 [facility] Comment on above: Performed By: #### L [id number] ####Software Writer: VELMA VALADEZ ([id number])[facility])[address] [place] [address] NEUTROPHILS ABSOLUTE 3.7 10*3/uL Normal 1.8-7.[address] [facility] Comment on above: Performed By: #### L [id number] ####Software Writer: VELMA VALADEZ ([id number])[facility])[address] [place] [address] Neutrophils/100 WBC (Bld) 66.1 % Normal 38.0-82.0 [facility] Comment on above: Performed By: #### L [id number] ####Software Writer: VELMA [id number])[facility] ([facility])[address] [place] [address] NRBC 0.0 /100 WBCs Normal 0.0-2.0 [facility] Comment on above: Performed By: #### L [id number] ####Software Writer: VELMA VALADEZ ([id number])[facility])[address] [place] [address] Platelet mean volume (Bld) [Entitic vol] 9.8 fL Normal 9.0-12.7 [facility] Comment on above: Performed By: #### L [id number] ####Software Writer: VELMA VALADEZ ([id number])[facility])[address] [place] [address] Platelets (Bld) [#/Vol] 301 10*3/uL Normal 140-440 [facility] Comment on above: Performed By: #### L [id number] ####Software Writer: VELMA VALADEZ ([id number])[facility] ([facility])[address] [place] [address] RBC (Bld) [#/Vol] 3.52 10*6/uL Low 3.80-5.20 [facility] Comment on above: Performed By: #### L [id number] ####Software Writer: VELMA VALADEZ ([id number])[facility])[address] [place] [address] WBC (Bld) [#/Vol] 5.6 10*3/uL Normal 3.6-10.7 [facility] Comment on above: Performed By: #### L [id number] ####Software Writer: VELMA VALADEZ ([id number])[facility])[address] [place] [address] CBC panel Auto (Bld)on 07-07 Erythrocyte distribution width (RBC) [Ratio] 17.5 % High 11.5-15.0 [facility] Comment on above: Order Comment: Speci men Type: BLOOD SPECIMEN Ordering Facility: [facility] Address: [address] [place] [address] Performed By: #### 2 4362-6 #### [facility] CLIA [id number] [address] [place] [address] [place] Hematocrit (Bld) [Volume fraction] 32.7 % Low 36.0-46.0 [facility] Comment on above: Order Comment: Speci men Type: BLOOD SPECIMEN Ordering Facility: [facility] Address: [address] [place] [address] Performed By: #### 2 4362-6 #### [facility] CLIA [id number] [address] [place] [address] [place] Hemoglobin (Bld) [Mass/Vol] 10.2 g/dL Low 11.5-15.5 [facility] Comment on above: Order Comment: Speci men Type: BLOOD SPECIMEN Ordering Facility: [facility] Address: [address] [place] [address] Performed By: #### 2 4362-6 #### [facility] CLIA [id number] [address] [place] [address] [place] MCH (RBC) [Entitic mass] 26.8 pg Normal 26.0-34.0 [facility] Comment on above: Order Comment: Speci men Type: BLOOD SPECIMEN Ordering Facility: [facility] Address: [address] [place] [address] Performed By: #### 2 4362-6 #### [facility] CLIA [id number] [address] [place] [address] [place] MCHC (RBC) [Mass/Vol] 31.2 g/dL Normal 30.5-36.0 [facility] Comment on above: Order Comment: Speci men Type: BLOOD SPECIMEN Ordering Facility: [facility] Address: [address] [place] [address] Performed By: #### 2 4362-6 #### [facility] CLIA [id number] [address] [place] [address] [place] MCV (RBC) [Entitic vol] 86.1 fL Normal 80.0-100.0 [facility] Comment on above: Order Comment: Speci men Type: BLOOD SPECIMEN Ordering Facility: [facility] Address: [address] [place] [address] Performed By: #### 2 4362-6 #### [facility] CLIA [id number] [address] [place] [address] [place] Nucleated RBC (Bld) [#/Vol] 10*3/uL Normal <0.01 [facility] Comment on above: Order Comment: Speci men Type: BLOOD SPECIMEN Ordering Facility: [facility] Address: [address] [place] [address] Performed By: #### 2 4362-6 #### [facility] CLIA [id number] [address] [place] [address] [place] Platelet mean volume (Bld) [Entitic vol] 9.8 fL Normal 9.0-12.7 [facility] Comment on above: Order Comment: Speci men Type: BLOOD SPECIMEN Ordering Facility: [facility] Address: [address] [place] [address] Performed By: #### 2 4362-6 #### [facility] CLIA [id number] [address] [place] [address] [place] Platelets (Bld) [#/Vol] 284 10*3/uL Normal 150-400 [facility] Comment on above: Order Comment: Speci men Type: BLOOD SPECIMEN Ordering Facility: [facility] Address: [address] [place] [address] Performed By: #### 2 4362-6 #### [facility] CLIA [id number] [address] [place] [address] [place] RBC (Bld) [#/Vol] 3.80 10*6/uL Low 3.90-5.20 [facility] Comment on above: Order Comment: Speci men Type: BLOOD SPECIMEN Ordering Facility: [facility] Address: [address] [place] [address] Performed By: #### 2 4362-6 #### [facility] CLIA [id number] [address] [place], [place] [address] [place] [address] [place] WBC (Bld) [#/Vol] 5.72 10*3/uL Normal 3.70-11.00 [facility] Comment on above: Order Comment: Speci men Type: BLOOD SPECIMEN Ordering Facility: [facility] Address: [address] [place] [address] Performed By: #### 2 4362-6 #### [facility] CLIA [id number] [address] [place] [address] [place] ORBITS WO IVCONon -21-[address] ORBITS WO IVCON * * *Final Report* * * DATE OF EXAM: Jul 07 2024 8:21PM [facility] 0510 - CT ORBITS [...] changes. Unchanged appearance of left globe/phthisis bulbi. 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 Transcribe Date/Time: Jul 07 2024 8:24P Dictated by : ULICES LEBLANC MD This examination was interpreted and the report reviewed and electronically signed by: DE JAIN MD on Jul 07 2024 9:18PM EST [id number] Normal [facility] HISTORY PHYSICALon HISTORY PHYSICAL HNO ID: [id number] Author: FELICIA LEVY MD Service: General Internal [...] 3pm to 7am): Please page on-call resident [phone] (Jonathan Chaudhry Subjective CHIEF COMPLAINT: Acute angle closure glaucoma HPI: Mel Castillo is a 83 year old female with a PMH of COPD, HTN, Afib (on Lovenox), CKD Stage 3, L retinal detachment, recurrent embolic events, and most 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 She was subsequently taken by the railroad brakeman for peripheral iridotomy's, which helped to reduce elevated intraocular pressure down to 10.2 mmHg in the R eye. Furthermore, was evaluated by stroke team at [facility] who reviewed her images and believed her headache and severe vision loss was secondary to the acute closure glaucoma and not stroke. Ultimately, it was determined that due to vision now being reduced to only one eye she required retinal specialist at [facility] for repair of acute retinal detachment on [...] of breath., Disp: , Rfl: , 07/06/2024 kcypucxhwwl-aldxjvhnu-s ilanter (TRELEGY ELLIPTA) 100-62.5-25 mcg inhalation powder, Inhale 1 (more content not included)... Normal [facility] NURSING PROGon 07-07-2024 NURSING PROG HNO ID: [id number] Author: SONNY CASTILLO, RADHA Service: Nursing Author [...] notify nurse if she experiences pain. Normal [facility] NURSING PROG HNO ID: [id number] Author: [place], RADHA Service: ? Author Type: Registered Nurse Type: Nursing Progress Note Filed: 07/07/2024 12:15 Note Text: Transfer Note: PATIENT NAME: Mel Castillo Patient Location: [place] [address]/60-31 Room: [place] [address] Patient transferred into room/unit H60-31 in stable condition. Actions taken: Team notified. Patient belongings with patient. Pt oriented to the floor policy and fall prevention protocol. Call light within reach. Normal [facility] Nursing Noteon 07-07-2024 Nursing Note Report called to [facility]. Normal [facility] Progress Noteon 07-07-2024 Progress Note Nutrition rescreen completed. Chart reviewed. Patient to be monitored and followed by the diet air analysis technician. Normal [facility] Renal function 2000 panelon 07-07-2024 Albumin [Mass/Vol] 3.7 g/dL Low 3.9-4.[address] [facility] Comment on above: Order Comment: Speci men Type: BLOOD SPECIMEN Ordering Facility: [facility] Address: [address] [place] [address] Performed By: #### 2 4362-6 #### [facility] CLIA [id number] [address] [place] [address] [place] Anion gap [Moles/Vol] 12 mmol/L Normal 8-15 [facility] Comment on above: Order Comment: Speci men Type: BLOOD SPECIMEN Ordering Facility: [facility] Address: [address] [place] [address] Performed By: #### 2 4362-6 #### [facility] CLIA [id number] [address] [place] [address] [place] Calcium [Mass/Vol] 9.2 mg/dL Normal 8.5-10.[address] [facility] Comment on above: Order Comment: Speci men Type: BLOOD SPECIMEN Ordering Facility: [facility] Address: [address] [place] [address] Performed By: #### 2 4362-6 #### [facility] CLIA [id number] [address] [place] [address] [place] Chloride [Moles/Vol] 107 mmol/L Normal 98-107 [facility] Comment on above: Order Comment: Speci men Type: BLOOD SPECIMEN Ordering Facility: [facility] Address: [address] [place] [address] Performed By: #### 2 4362-6 #### [facility] CLIA [id number] [address] [place] [address] [place] CO2 [Moles/Vol] 20 mmol/L Low 22-30 [facility] Comment on above: Order Comment: Speci men Type: BLOOD SPECIMEN Ordering Facility: [facility] Address: [address] [place] [address] Performed By: #### 2 4362-6 #### [facility] CLIA [id number] [address] [place] [address] [place] Creatinine [Mass/Vol] 0.82 mg/dL Normal 0.58-0.96 [facility] Comment on above: Order Comment: Speci men Type: BLOOD SPECIMEN Ordering Facility: [facility] Address: [address] [place] [address] Performed By: #### 2 4362-6 #### [facility] CLIA [id number] [address] [place] [address] [place] Creatinine and Glomerular filtration rate.predicted panel (S/P/Bld) 71 mL/min/1.73m??? Normal >=60 [facility] Comment on above: Order Comment: Rhina mason Type: BLOOD SPECIMEN Ordering Facility: [facility] Address: [address] [place] [address] Result Comment: Isa mated Glomerular Filtration Rate [...] GFR. Performed By: #### 2 4362-6 #### [facility] CLIA [id number] [address] [place] [address] [place] Glucose [Mass/Vol] 106 mg/dL High 74-[address] [facility] Comment on above: Order Comment: Rhina mason Type: BLOOD SPECIMEN Ordering Facility: [facility] Address: [address] [place] [address] Result Comment: The [place] [employer] (ADA) provides guidance for cutoff [...] Standards of Medical Care in Diabetes 2016, [place] [employer]. Diabetes Care. 2016.39(Suppl 1). Performed By: #### 2 4362-6 #### [facility] CLIA [id number] [address] [place] [address] [place] Phosphate [Mass/Vol] 3.0 mg/dL Normal 2.7-4.8 [facility] Comment on above: Order Comment: Speci men Type: BLOOD SPECIMEN Ordering Facility: [facility] Address: [address] [place], [place] [address] Performed By: #### 2 4362-6 #### [facility] CLIA [id number] [address] [place], [place] [address] [place] Potassium [Moles/Vol] 4.3 mmol/L Normal 3.7-5.1 [facility] Comment on above: Order Comment: Speci men Type: BLOOD SPECIMEN Ordering Facility: [facility] Address: [address] [place] [address] Performed By: #### 2 4362-6 #### [facility] CLIA [id number] [address] [place] [address] [place] Sodium [Moles/Vol] 139 mmol/L Normal 136-[address] [facility] Comment on above: Order Comment: Speci men Type: BLOOD SPECIMEN Ordering Facility: [facility] Address: [address] [place], [place] [address] Performed By: #### 2 4362-6 #### [facility] CLIA [id number] [address] [place], [place] [address] [place] Urea nitrogen [Mass/Vol] 16 mg/dL Normal 7-21 [facility] Comment on above: Order Comment: Speci men Type: BLOOD SPECIMEN Ordering Facility: [facility] Address: [address] [place], [place] [address] Performed By: #### 2 4362-6 #### [facility] CLIA [id number] [address] [place], [place] [address] [place] [id number] 07-06-2024 [id number] Normal [facility] BASIC METABOLIC PANELon 12-2 0-2023 Anion gap [Moles/Vol] 9 mmol/L Normal 3-[address] [facility] Comment on above: Performed By: #### L AB15 ####Software Writer: VELMA VALADEZ ([id number])[facility] [place] [address] Calcium [Mass/Vol] 8.9 mg/dL Normal 8.8-10.0 [facility] Comment on above: Performed By: #### L AB15 ####Software Writer: VELMA VALADEZ ([id number])[facility] [place] [address] Chloride [Moles/Vol] 113 mmol/L High 98-107 [facility] Comment on above: Performed By: #### L AB15 ####Software Writer: VELMA VALADEZ ([id number])[facility] [place] [address] CO2 [Moles/Vol] 18 mmol/L Low 23-31 [facility] Comment on above: Performed By: #### L AB15 ####Software Writer: VELMA VALADEZ ([id number])[facility] ([facility])[address] [place] [address] Creatinine [Mass/Vol] 0.86 mg/dL Normal 0.57-1.[address] [facility] Comment on above: Performed By: #### L AB15 ####Software Writer: VELMA VALADEZ ([id number])[facility] ([facility])[address] [place] [address] GLOMERULAR FILTRATION RATE ML/MIN/1.73 SQ M.PREDICTED 66.7 mL/min/1.73m*2 Normal >60.0 [facility] Comment on above: Result Comment: Calc ulation based on the Chronic Kidney Disease Epidemiology Collaboration (CKD-EPI) equation refit without adjustment for race Performed By: #### L AB15 ####Software Writer: VELMA VALADEZ ([id number])[facility] ([facility])[address] [place] [address] [place] Glucose [Mass/Vol] 74 mg/dL Low 82-115 [facility] Comment on above: Performed By: #### L AB15 ####Software Writer: VELMA VALADEZ ([id number])[facility] ([facility])[address] [place] [address] Potassium [Moles/Vol] 4.5 mmol/L Normal 3.5-5.[address] [facility] Comment on above: Result Comment: [facility] potassium values may be up to 0.5 mmol/L lower than serum values. Performed By: #### L AB15 ####Software Writer: VELMA VALADEZ ([id number])[facility] ([facility])[address] [place] [address] Sodium [Moles/Vol] 140 mmol/L Normal 136-145 [facility] Comment on above: Performed By: #### L AB15 ####Software Writer: VELMA VALADEZ ([id number])[facility] ([facility])[address] [place] [address] Urea nitrogen [Mass/Vol] 16 mg/dL Normal 9-23 [facility] Comment on above: Performed By: #### L AB15 ####Software Writer: VELMA VALADEZ ([id number])[facility] ([facility])[address] [place] [address] Basic metabolic 1998 panelon 07-06-2024 Anion gap [Moles/Vol] 9 mmol/L 3 - 13 mmol/L [facility] Calcium [Mass/Vol] 8.9 mg/dL 8.8 - 10. 0 mg/dL [facility] Chloride [Moles/Vol] 113 mmol/L High 98 - 10 7 mmol/L [facility] CO2 [Moles/Vol] 18 mmol/L Low 23 - 31 mmol/L [facility] Creatinine [Mass/Vol] 0.86 mg/dL 0.57 - 1.11 mg/dL [facility] GFR/1.73 sq M.predicted (S/P/Bld) [Vol rate/Area] 66.7 mL/min - PINF [facility] Comment on above: Calculation based on the Chronic Kidney Disease Epidemiology Collaboration (CKD-EPI) equation refit without adjustment for race Glucose [Mass/Vol] 74 mg/dL Low 82 - 115 mg/dL [facility] Interpretation and review of laboratory results Abnormal [facility] Potassium [Moles/Vol] 4.5 mmol/L 3.5 - 5.1 mmol/L [facility] Comment on above: Plasma potassium chris ues may be up to 0.5 mmol/L lower than serum values. Sodium [Moles/Vol] 140 mmol/L 136 - 145 mmol/L [facility] Urea nitrogen [Mass/Vol] 16 mg/dL 9 - 23 mg/dL [facility] CBC W Auto Differential pane l (Bld)Ordered By: Daija Doran on 07-06-2024 Basophils (Bld) [#/Vol] 0 10*3/uL 0.0 - 0.2 10*3/uL [facility] Basophils/100 WBC (Bld) 0.5 % 0.0 - 2.0 % [facility] Eosinophils (Bld) [#/Vol] 0 10*3/uL 0.0 - 0.5 10*3/uL [facility] [employer] Eosinophils/100 WBC (Bld) 0.3 % 0.0 - 6.0 % [facility] Erythrocyte distribution width (RBC) [Ratio] 17.8 % High 11.5 - 15.0 % [facility] Hematocrit (Bld) [Volume fraction] 31.8 % Low 35.0 - 47.0 % [facility] Hemoglobin (Bld) [Mass/Vol] 9.7 g/dL Low 11.7 - 16.0 g/dL [facility] Immature granulocytes (Bld) [#/Vol] 0 10*3/uL NINF - 0.1 10*3/uL [facility] [employer] Immature granulocytes/100 WBC (Bld) 0.3 % 0.0 - 2.0 % [facility] Interpretation and review of laboratory results Abnormal [facility] Lymphocytes (Bld) [#/Vol] 1.2 10*3/uL 1.0 - 4.3 10*3/uL [facility] [employer] Lymphocytes/100 WBC (Bld) 18.9 % 15.0 - 45.0 % [facility] MCH (RBC) [Entitic mass] 26.4 pg 26.0 - 34.0 pg [facility] [employer] MCHC (RBC) [Mass/Vol] 30.5 % 30.5 - 36.0 % [facility] MCV (RBC) [Entitic vol] 86.4 fL 77.0 - 99.0 fL [facility] Health Monocytes (Bld) [#/Vol] 0.5 10*3/uL 0.0 - 0.9 10*3/uL [facility] Health Monocytes/100 WBC (Bld) 8.2 % 5.0 - 13.0 % [facility] Neutrophils (Bld) [#/Vol] 4.4 10*3/uL 1.8 - 7.5 10*3/uL [facility] Neutrophils/100 WBC (Bld) 71.8 % 38.0 - 82.0 % [facility] Nucleated RBC/100 WBC (Bld) [Ratio] 0 % [facility] Platelet mean volume (Bld) [Entitic vol] 10.9 fL 9.0 - 12.7 fL [facility] Platelets (Bld) [#/Vol] 278 10*3/uL 140 - 440 10*3/uL [facility] RBC (Bld) [#/Vol] 3.68 10*6/uL Low 3.80 - 5.2 0 10*6/uL [facility] WBC (Bld) [#/Vol] 6.1 10*3/uL 3.6 - 10.7 10*3/uL [facility] CBC WITH AUTO DIFFERENTIALon 07-06-2024 Basophils (Bld) [#/Vol] 0.0 10*3/uL Normal 0.0-0.2 [facility] Comment on above: Performed By: #### L [id number] ####Software Writer: VELMA VALADEZ ([id number])[facility] ([facility])[address] [place] [address] Basophils/100 WBC (Bld) 0.5 % Normal 0.0-2.0 [facility] Comment on above: Performed By: #### L [id number] ####Software Writer: VELMA VALADEZ ([id number])[facility] ([facility])[address] [place] [address] Eosinophils (Bld) [#/Vol] 0.0 10*3/uL Normal 0.0-0.5 [facility] Comment on above: Performed By: #### L [id number] ####Software Writer: VELMA VALADEZ ([id number])[facility])[address] [place] [address] Eosinophils/100 WBC (Bld) 0.3 % Normal 0.0-6.0 [facility] Comment on above: Performed By: #### L [id number] ####Software Writer: VELMA VALADEZ ([id number])[facility])[address] [place] [address] Erythrocyte distribution width (RBC) [Ratio] 17.8 % High 11.5-15.0 [facility] Comment on above: Performed By: #### L [id number] ####Software Writer: VELMA VALADEZ ([id number])[address] Hematocrit (Bld) [Volume fraction] 31.8 % Low 35.0-47.0 [facility] Comment on above: Performed By: #### L [id number] ####Software Writer: VELMA VALADEZ ([id number])[address] Hemoglobin (Bld) [Mass/Vol] 9.7 g/dL Low 11.7-16.0 [facility] Comment on above: Performed By: #### L [id number] ####Software Writer: VELMA VALADEZ ([id number])[facility])[address] [place] [address] IMMATURE GRANS % 0.3 % Normal 0.0-2.0 [facility] Comment on above: Performed By: #### L [id number] ####Software Writer: VELMA VALADEZ ([id number])[address] IMMATURE GRANS ABSOLUTE 0.0 10*3/uL Normal <0.1 [facility] Comment on above: Performed By: #### L [id number] ####Software Writer: VELMA VALADEZ ([id number])[facility])[address] [place] [address] Lymphocytes (Bld) [#/Vol] 1.2 10*3/uL Normal 1.0-4.3 [facility] Comment on above: Performed By: #### L [id number] ####Software Writer: VELMA VALADEZ ([id number])[facility])[address] [place] [address] Lymphocytes/100 WBC (Bld) 18.9 % Normal 15.0-45.0 [facility] Comment on above: Performed By: #### L [id number] ####Software Writer: VELMA VALADEZ ([id number])[facility])[address] [place] [address] MCH (RBC) [Entitic mass] 26.4 pg Normal 26.0-34.0 [facility] Comment on above: Performed By: #### L [id number] ####Software Writer: VELMA VALADEZ ([id number])[facility])[address] [place] [address] MCHC 30.5 % Normal 30.5-36.0 [facility] Comment on above: Performed By: #### L [id number] ####Software Writer: VELMA VALADEZ ([id number])[facility])[address] [place] [address] MCV (RBC) [Entitic vol] 86.4 fL Normal 77.0-99.0 [facility] Comment on above: Performed By: #### L [id number] ####Software Writer: VELMA VALADEZ ([id number])[facility])[address] [place] [address] Monocytes (Bld) [#/Vol] 0.5 10*3/uL Normal 0.0-0.9 [facility] Comment on above: Performed By: #### L [id number] ####Software Writer: VELMA VALADEZ ([id number])[facility])[address] [place] [address] Monocytes/100 WBC (Bld) 8.2 % Normal 5.0-13.0 [facility] Comment on above: Performed By: #### L [id number] ####Software Writer: VELMA VALADEZ ([id number])[facility] ([facility])[address] [place] [address] NEUTROPHILS ABSOLUTE 4.4 10*3/uL Normal 1.8-7.[address] [facility] Comment on above: Performed By: #### L [id number] ####Software Writer: VELMA VALADEZ ([id number])[facility] ([facility])[address] [place] [address] Neutrophils/100 WBC (Bld) 71.8 % Normal 38.0-82.0 [facility] Comment on above: Performed By: #### L [id number] ####Software Writer: VELMA VALADEZ ([id number])[facility] ([facility])[address] [place] [address] NRBC 0.0 /100 WBCs Normal 0.0-2.0 [facility] Comment on above: Performed By: #### L [id number] ####Software Writer: VELMA VALADEZ ([id number])[facility] ([facility])[address] [place] [address] Platelet mean volume (Bld) [Entitic vol] 10.9 fL Normal 9.0-12.7 [facility] Comment on above: Performed By: #### L [id number] ####Software Writer: VELMA VALADEZ ([id number])[facility] ([facility])[address] [place] [address] Platelets (Bld) [#/Vol] 278 10*3/uL Normal 140-440 [facility] Comment on above: Performed By: #### L [id number] ####Software Writer: VELMA VALADEZ ([id number])[facility] ([facility])[address] [place] [address] RBC (Bld) [#/Vol] 3.68 10*6/uL Low 3.80-5.20 [facility] Comment on above: Performed By: #### L [id number] ####Software Writer: VELMA VALADEZ ([id number])[facility] ([facility])[address] [place] [address] WBC (Bld) [#/Vol] 6.1 10*3/uL Normal 3.6-10.7 [facility] Comment on above: Performed By: #### L [id number] ####Software Writer: VELMA VALADEZ ([id number])[facility] ([facility])[address] [place] [address] 07-06-2024 CNPN Telephone (OPHTMN) MEL GUADARRAMA ([id number]) 1940 [facility] Date Time Provider Department 07/06/24 RYAN ELIZONDO During your visit today, we recorded the following information about you: Ryan Elizondo MD 07/06/2024 2:42 PM Signed TELEPHONE ENCOUNTER 07/06/2024 Patient with recent stroke and admitted to [facility] where she was noted to have elevated IOP with retinal detachment of the right eye by consult railroad brakeman. 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 Was contacted about potential transfer to [facility] to be evaluated by retinal specialist. [...] as needed for wheezing/shortness of breath. - ydniwwuvkih-owpqlheob-v ilanter (TRELEGY ELLIPTA) 100-62.5-25 mcg inhalation powder [...] Status:Closed by RYAN ELIZONDO on 07/06/[address] [facility] [place] Consulton 07-06-2024 Consult Normal [facility] Nursing Noteon 07-06-2024 Nursing Note This RN called Protective Services to try and locate pts lost glasses from 07/05/2024. Glasses that match the description are in lost and found. Will attempt to see if glasses are a match. Normal [facility] Progress Noteon 07-06-2024 Progress Note Normal [facility] Progress Note Normal [facility] CBC (HEMOGRAM)on 07-05-2024 Erythrocyte distribution width (RBC) [Ratio] 17.2 % High 11.5-15.0 [facility] Comment on above: Performed By: #### L [id number] ####Software Writer: VELMA VALADEZ ([id number])[address] Hematocrit (Bld) [Volume fraction] 32.8 % Low 35.0-47.0 [facility] Comment on above: Performed By: #### L [id number] ####Software Writer: VELMA VALADEZ ([id number])[facility])[address] [place] [address] Hemoglobin (Bld) [Mass/Vol] 10.6 g/dL Low 11.7-16.0 [facility] Comment on above: Performed By: #### L [id number] ####Software Writer: VELMA VALADEZ ([id number])[facility])[address] [place] [address] MCH (RBC) [Entitic mass] 26.4 pg Normal 26.0-34.0 [facility] Comment on above: Performed By: #### L [id number] ####Software Writer: VELMA VALADEZ ([id number])[facility])[address] [place] [address] MCHC 32.3 % Normal 30.5-36.0 [facility] Comment on above: Performed By: #### L [id number] ####Software Writer: VELMA VALADEZ ([id number])[facility] ([facility])[address] [place] [address] MCV (RBC) [Entitic vol] 81.8 fL Normal 77.0-99.0 [facility] Comment on above: Performed By: #### L [id number] ####Software Writer: VELMA VALADEZ ([id number])[facility])[address] [place] [address] Platelet mean volume (Bld) [Entitic vol] 9.6 fL Normal 9.0-12.7 [facility] Comment on above: Performed By: #### L [id number] ####Software Writer: VELMA VALADEZ ([id number])[facility] ([facility])[address] [place] [address] Platelets (Bld) [#/Vol] 349 10*3/uL Normal 140-440 [facility] Comment on above: Performed By: #### L [id number] ####Software Writer: VELMA VALADEZ ([id number])[facility])[address] [place] [address] RBC (Bld) [#/Vol] 4.01 10*6/uL Normal 3.80-5.20 [facility] Comment on above: Performed By: #### L [id number] ####Software Writer: VELMA VALADEZ ([id number])[facility])[address] [place] [address] WBC (Bld) [#/Vol] 5.5 10*3/uL Normal 3.6-10.7 [facility] Comment on above: Performed By: #### L [id number] ####Software Writer: VELMA VALADEZ ([id number])[facility] ([facility])[address] [place] [address] CBC panel Auto (Bld)on 07-05 Erythrocyte distribution width (RBC) [Ratio] 17.2 % High 11.5 - 15.0 % [facility] Hematocrit (Bld) [Volume fraction] 32.8 % Low 35.0 - 47.0 % [facility] Hemoglobin (Bld) [Mass/Vol] 10.6 g/dL Low 11.7 - 16.0 g/dL [facility] Interpretation and review of laboratory results Abnormal [facility] MCH (RBC) [Entitic mass] 26.4 pg 26.0 - 34.0 pg [facility] MCHC (RBC) [Mass/Vol] 32.3 % 30.5 - 36.0 % [facility] MCV (RBC) [Entitic vol] 81.8 fL 77.0 - 99.0 fL [facility] Platelet mean volume (Bld) [Entitic vol] 9.6 fL 9.0 - 12.7 fL [facility] Platelets (Bld) [#/Vol] 349 10*3/uL 140 - 440 10*3/uL [facility] RBC (Bld) [#/Vol] 4.01 10*6/uL 3.80 - 5.2 0 10*6/uL [facility] WBC (Bld) [#/Vol] 5.5 10*3/uL 3.6 - 10.7 10*3/uL [facility] COMPREHENSIVE METABOLIC PANE Gilberto 07-05-2024 Albumin [Mass/Vol] 3.6 g/dL Normal 3.4-4.8 [facility] Comment on above: Performed By: #### L [id number], LAB17 ####Software Writer: VELMA VALADEZ ([id number])[facility] ([facility])[address] [place] [address] ALP [Catalytic activity/Vol] 94 U/L Normal 40-150 [facility] Comment on above: Performed By: #### L [id number], LAB17 ####Software Writer: VELMA [id number])[facility] ([facility])[address] [place] [address] [place] ALT [Catalytic activity/Vol] 23 U/L Normal <30 [facility] Comment on above: Performed By: #### L [id number], LAB17 ####Software Writer: VELMA VALADEZ ([id number])[facility] ([facility])[address] [place] [address] Anion gap [Moles/Vol] 10 mmol/L Normal 3-[address] [facility] Comment on above: Performed By: #### L [id number], LAB17 ####Software Writer: VELMA VALADEZ ([id number])[facility] ([facility])[address] [place] [address] AST [Catalytic activity/Vol] 26 U/L Normal <34 [facility] Comment on above: Performed By: #### L [id number], LAB17 ####Software Writer: VELMA VALADEZ ([id number])[facility] ([facility])[address] [place] [address] Bilirubin [Mass/Vol] 0.7 mg/dL Normal <1.2 [facility] Comment on above: Performed By: #### L [id number], LAB17 ####Software Writer: VELMA VALADEZ ([id number])[facility] ([facility])[address] [place] [address] Calcium [Mass/Vol] 9.2 mg/dL Normal 8.8-10.0 [facility] Comment on above: Performed By: #### L [id number], LAB17 ####Software Writer: VELMA VALADEZ ([id number])[facility] ([facility])[address] [place] [address] [place] Chloride [Moles/Vol] 107 mmol/L Normal 98-107 [facility] Comment on above: Performed By: #### L [id number], LAB17 ####Software Writer: VELMA VALADEZ ([id number])[facility] ([facility])[address] [place] [address] [place] CO2 [Moles/Vol] 22 mmol/L Low 23-31 [facility] Comment on above: Performed By: #### L [id number], LAB17 ####Software Writer: VELMA VALADEZ ([id number])[facility])[address] [place] [address] Creatinine [Mass/Vol] 0.82 mg/dL Normal 0.57-1.[address] [facility] Comment on above: Performed By: #### L [id number], LAB17 ####Software Writer: VELMA VALADEZ ([id number])[facility])[address] [place] [address] GLOMERULAR FILTRATION RATE ML/MIN/1.73 SQ M.PREDICTED 70.6 mL/min/1.73m*2 Normal >60.0 [facility] Comment on above: Result Comment: Calc ulation based on the Chronic Kidney Disease Epidemiology Collaboration (CKD-EPI) equation refit without adjustment for race Performed By: #### L [id number], LAB17 ####Software Writer: VELMA VALADEZ ([id number])[facility] ([facility])[address] [place] [address] Glucose [Mass/Vol] 118 mg/dL High 82-115 [facility] Comment on above: Performed By: #### L [id number], LAB17 ####Software Writer: VELMA VALADEZ ([id number])[facility])[address] [place] [address] Potassium [Moles/Vol] 4.3 mmol/L Normal 3.5-5.[address] [facility] Comment on above: Result Comment: [facility] potassium values may be up to 0.5 mmol/L lower than serum values. Performed By: #### L [id number], LAB17 ####Software Writer: VELMA VALADEZ ([id number])[facility])[address] [place] [address] Protein [Mass/Vol] 7.0 g/dL Normal 6.4-8.3 [facility] Comment on above: Performed By: #### L [id number], LAB17 ####Software Writer: VELMA VALADEZ ([id number])[address] Sodium [Moles/Vol] 139 mmol/L Normal 136-145 [facility] Comment on above: Performed By: #### L [id number], LAB17 ####Software Writer: VELMA VALADEZ ([id number])[address] Urea nitrogen [Mass/Vol] 13 mg/dL Normal 9-23 [facility] Comment on above: Performed By: #### L [id number], LAB17 ####Software Writer: VELMA VALADEZ ([id number])[address] HEAD NECK ANGIO W AND WO IV CONTRASTon 07-05-2024 CT HEAD NECK ANGIO W AND WO IV CONTRAST Normal [facility] CT HEAD WO IV CONTRASTon CT HEAD WO IV CONTRAST Normal [facility] CT Head WO contraston 2023 Patient Name: MEL CARVER RD : 1940 [facility]#: [id number] Exam Date/Time: 07/05/2024 04:36 Procedure: CT HEAD [...] of the cervica (more content not included)... [facility] Cory, Cirilo Khalil MD - 07/05/2024 Patient Name: MEL POP : 1940 [facility]#: [id number] Exam Date/Time: 07/05/2024 04:36 Procedure: CT HEAD [...] acute consolidative process (more content not included)... [facility] CT PERFUSIONon 07-05-2024 CT PERFUSION Normal [facility] CTA Head vessels and Neck ve ssels WO and W contrast Cheryl 07-05-2024 Patient Name: MEL CARVER RD : 1940 [facility]#: [id number] Exam Date/Time: 07/05/2024 04:36 Procedure: CT HEAD [...] Multilevel degenerative chopra (more content not included)... [facility] Cory, Cirilo Khalil MD - 07/05/2024 Patient Name: MEL POP : 1940 [facility]#: [id number] Exam Date/Time: 07/05/2024 04:36 Procedure: CT HEAD [...] no acute conso (more content not included)... [facility] metabolic 1998 panelon 07-05-2024 Albumin [Mass/Vol] 3.6 g/dL 3.4 - 4.8 g/dL [facility] ALP [Catalytic activity/Vol] 94 U/L 40 - 150 U/L [facility] ALT [Catalytic activity/Vol] 23 U/L NINF - 30 U/L [facility] Anion gap [Moles/Vol] 10 mmol/L 3 - 13 mmol/L [facility] AST [Catalytic activity/Vol] 26 U/L NINF - 34 U/L [facility] Bilirubin [Mass/Vol] 0.7 mg/dL NINF - 1.2 mg/dL [facility] Calcium [Mass/Vol] 9.2 mg/dL 8.8 - 10. 0 mg/dL [facility] Chloride [Moles/Vol] 107 mmol/L 98 - 10 7 mmol/L [facility] CO2 [Moles/Vol] 22 mmol/L Low 23 - 31 mmol/L [facility] Creatinine [Mass/Vol] 0.82 mg/dL 0.57 - 1.11 mg/dL [facility] GFR/1.73 sq M.predicted (S/P/Bld) [Vol rate/Area] 70.6 mL/min - PINF [facility] Comment on above: Calculation based on the Chronic Kidney Disease Epidemiology Collaboration (CKD-EPI) equation refit without adjustment for race Glucose [Mass/Vol] 118 mg/dL High 82 - 115 mg/dL [facility] Interpretation and review of laboratory results Abnormal [facility] Potassium [Moles/Vol] 4.3 mmol/L 3.5 - 5.1 mmol/L [facility] Comment on above: Plasma potassium chris ues may be up to 0.5 mmol/L lower than serum values. Protein [Mass/Vol] 7 g/dL 6.4 - 8.3 g/dL [facility] Sodium [Moles/Vol] 139 mmol/L 136 - 145 mmol/L [facility] Urea nitrogen [Mass/Vol] 13 mg/dL 9 - 23 mg/dL [facility] Consulton 07-05-2024 Consult Normal [facility] Consult Normal [facility] Consult Normal [facility] Consult Normal [facility] ECG 12-LEADon 07-05-2024 ECG 12-LEAD IMPRESSION: Atrial fibrillation Electronically Signed On 07-05-2024 12:39:21 EST by Jhonatan Hernandez [facility] ED Nursing Noteon 07-05-[address] Carlson at bedside. Normal [facility] ED Nursing Note Provider notified of patient request for pain meds. Normal [facility] ED Nursing Note Dr. Carlson at bedside [facility] ED Nursing Note Patient is returning back to room 32 at this time with Jose, Wil. [facility] ED Nursing Note Pt emergently going to eye clinic. Pt being transported in wheelchair with trauma float RADHA Hinkle and Maritza RN Pt being transported on zoll monitor and acls kit. Normal [facility] ED Nursing Note Ophthalmology at bedside [facility] ED Nursing Note Report to Maritza FRAGA [facility] ED Provider Noteon ED Provider Note [facility] HEMOGLOBIN A1Con 07-05-2024 Glucose [Mass/Vol] 120 mg/dL [facility] Comment on above: Result Comment: BUBBA Garcia COMMENTS:HbA1c values of 5.7-6.4 percent indicate an increased risk for developing diabetes mellitus. HbA1c values greater than or equal to 6.5 percent are diagnostic of diabetes mellitus. For diagnosis of diabetes in individuals without unequivocal hyperglycemia, results should be confirmed by repeat testing. Performed By: #### L [id number] ####Software Writer: VELMA VALADEZ ([id number])[facility] ([facility])[address] [place] [address] HEMOGLOBIN A1C 5.8 %HbA1C High <5.7 [facility] Comment on above: Result Comment: Norm al less than 5.7%Prediabetes 5.7% to 6.4%Diabetes 6.5% or higher--HgbA1C levels may not be accurate in patients who have renal disease, received recent blood transfusions, are anemic, or who have dyshemoglobinemia. Performed By: #### L AB90 ####Software Writer: VELMA VALADEZ ([id number])[facility] ([facility])[address] [place] [address] HIGH SENSITIVITY TROPONIN, S ERIAL BASELINEon 07-05-2024 TROPONIN HIGH SENSITIVITY BASELINE 14 ng/L Normal <=14 [facility] Comment on above: Performed By: #### L [id number] ####Software Writer: VELMA VALADEZ ([id number])[facility] ([facility])[address] [place] [address] HIGH SENSITIVITY TROPONIN, S ERIAL, SECOND TESTon [...] further clinical guidance. Performed By: #### L [id number], [id number] ####Software Writer: VELMA VALADEZ ([id number])[facility] ([facility])[address] [place] [address] TROPONIN HS, SERIAL REFLEX, TEST TWO 9 ng/L Normal <=14 [facility] Comment on above: Performed By: #### L [id number], [id number] ####Software Writer: VELMA VALADEZ ([id number])[facility] ([facility])[address] [place] [address] Laboratory - Chemistry and C hemistry - challengeon 07-05-2024 Average glucose Estimated from glycated hemoglobin (Bld) [Mass/Vol] 120 mg/dL [facility] Anion gap (Bld) [Moles/Vol] 8 mmol/L 3.00 - 13.00 [facility] Calcium.ionized (Bld) [Moles/Vol] 4.5 mg/dl 4.30 - 5.20 mg/dl [facility] [employer] Comment on above: Performed by [employer] CLIA ID:[id number] [place], [place] Device: [id number] Labelling Machine Operator ID: [id number] Chloride [Moles/Vol] 108 mmol/L 98 - 11 4 mmol/L [facility] [employer] CO2 [Moles/Vol] 23 mmol/L 21 - 29 mmol/L [facility] [employer] Creatinine [Mass/Vol] 0.9 mg/dL 0.6 - 1.3 mg/dL [facility] [employer] GFR/1.73 sq M.predicted CKD-EPI (S/P/Bld) [Vol rate/Area] 63.2 [facility] Comment on above: KDIGO guidelines pro [...] High 70 - 100 mg/dL [facility] [employer] Potassium [Moles/Vol] 4.5 mmol/L 3.4 - 5.1 mmol/L [facility] [employer] Sodium [Moles/Vol] 139 mmol/L 133 - 145 mmol/L [facility] [employer] Urea (Bld) [Mass/Vol] 14 mg/dL 4 - 22 mg/dL [facility] Glucose [Mass/Vol] 104 mg/dL High 70 - 100 mg/dL [facility] Laboratory - Coagulationon 1 09-05-2023 aPTT Coag (PPP) [Time] 30.4 s 20.0 - 30.5 s [facility] INR Coag (PPP) [Relative time] 1 {INR} 0.9 - 1.1 [facility] Comment on above: Recommended Anticoag ulant [...] 11.7 s 9.0 - 1 2.0 s [facility] Laboratory - Hematology and Cell countson 07-05-2024 HbA1c (Bld) [Mass fraction] 5.8 % High NINF [facility] Comment on above: Normal less than [...] MD Electronically Signed Date/Time: 07/05/2024 12:13 PM [facility] Patient Name: MEL CAVRER RD [facility] 1940 [id number] Exam Date/Time: 07/05/2024 11:45 Procedure: MR BRAIN [...] There is artifact within the right globe. [facility] Ming Fry MD - 07/05/2024 Patient Name: MEL POP : 1940 [facility]#: [id number] Exam Date/Time: 07/05/2024 11:45 Procedure: MR BRAIN [...] Date/Time: 07/05/2024 12:13 PM EST [facility] [employer] Radiology Study observation (narrative) [facility] Brain WO contrastOrdered By: Ming Fry on 07-05-2024 [email or web address] Work Phone: No Panel Informationon 07-05 Heart Rate 59 bpm [email or web address] P [place] 0 degrees [facility] [employer] AL Interval 0 ms [facility] Health QRS [place] 37 degrees [facility] QRSD Interval 98 ms [facility] h QT Interval 423 ms [facility] QTC Interval 418 ms [facility] T Wave [place] 29 degrees [facility] Atrial fibrillation Electronically Signed On 07-05-2024 12:39:21 EST by Jhonatan Hernandez CV Jhonatan Abdi MD - 07/05/2024 IMPRESSION: Atrial fibrillation Electronically Signed On 07-05-2024 12:39:21 EST by Jhonatan Hernandez [facility] Interpretation and review of laboratory results Abnormal [facility] HbA1c values of 5.7- 6.4 percent indicate an increased risk for developing diabetes mellitus. HbA1c values greater than or equal to 6.5 percent are diagnostic of diabetes mellitus. For diagnosis of diabetes in individuals without unequivocal hyperglycemia, results should be confirmed by repeat testing. [facility] Troponin HS Delta, Baseline to Second -5 ng/L NINF - 2 ng/L [facility] Comment on above: This specimen was [...] 9 ng/L NINF - 14 ng/L [facility] 1. No acute intracranial hemorrhage or territorial [...] Electronically Signed Date/Time: 07/05/2024 5:03 AM EST [facility] Patient Name: MEL CARVER RD : 1940 [facility]#: [id number] Exam Date/Time: 07/05/2024 04:36 Procedure: CT PERFUSION [...] the cervical spine. (more content not included)... [facility], Cirilo Khalil MD - 07/05/2024 [facility] Name: [facility]EL POP [facility] 1940 [id number] Exam Date/Time: 07/05/2024 04:36 Procedure: CT PERFUSION [...] process or suspici (more content not included)... [facility] Interpretation and review of laboratory results Normal [facility] Troponin HS, Serial Baseline 14 ng/L NINF - 14 ng/L [facility] Interpretation and review of laboratory results Normal [facility] Interpretation and review of laboratory results Abnormal [facility] Performed by: [facility], [address] [place] [address] CLIA ID: [id number] [facility] Radiology Study observation (narrative) [facility] Interpretation and review of laboratory results Abnormal [facility] Performed by: [facility], [address] [place] [address] CLIA ID: [id number] [facility] Panel InformationOrdered By: Cirilo Ray on 07-05-2024 [facility] [employer] Work Phone: PROTIME AND APTTon aPTT Coag (Bld) [Time] 30.4 s Normal 20.0-30.5 [facility] Comment on above: Performed By: #### L [id number] ####Software Writer: VELMA VALADEZ ([id number])[facility] ([facility])[address] [place] [address] INR Coag (PPP) [Relative time] 1.0 {INR} [...] prevent Myocardial Infarction Performed By: #### L [id number] ####Software Writer: VELMA VALADEZ ([id number])[facility] ([facility])[address] [place] [address] PT Coag (PPP) [Time] 11.7 s Normal 9.0-12.0 [facility] Comment on above: Performed By: #### L [id number] ####Software Writer: VELMA VALADEZ ([id number])[facility] ([facility])[address] [place] [address] Progress Noteon 07-05-2024 Progress Note Normal [facility] CBC panel Auto (Bld)on 07-02 Erythrocyte distribution width (RBC) [Ratio] 16.9 % High 11.5 - 15.0 % [facility] Hematocrit (Bld) [Volume fraction] 29.6 % Low 36.0 - 46.0 % [facility] Hemoglobin (Bld) [Mass/Vol] 9.3 g/dL Low 11.5 - 15.5 g/dL [facility] Interpretation and review of laboratory results Abnormal [facility] MCH (RBC) [Entitic mass] 26.7 pg 26.0 - 34.[address] [facility] MCHC (RBC) [Mass/Vol] 31.4 g/dL 30.5 - 36.0 g/dL [facility] MCV (RBC) [Entitic vol] 85.1 fL 80.0 - 100.[address] [facility] Nucleated RBC (Bld) [#/Vol] NINF [facility] Platelet mean volume (Bld) [Entitic vol] 10.2 fL 9.0 - 12.[address] [facility] Platelets (Bld) [#/Vol] 324 10*3/uL [facility] RBC (Bld) [#/Vol] 3.48 10*6/uL Low 3.90 - 5.2 0 m/uL [facility] WBC (Bld) [#/Vol] 5.12 10*3/uL [facility] Erythrocyte distribution width (RBC) [Ratio] 16.9 % High 11.5-15.0 [facility] Comment on above: Order Comment: Speci men Type: BLOOD SPECIMENOrdering Facility: [facility] Address: [address] [place] [address] Performed By: #### 5 8410-2 ####[facility] LABORATORYCLIA [id number] [address] [place] Hematocrit (Bld) [Volume fraction] 29.6 % Low 36.0-46.0 [facility] Comment on above: Order Comment: Speci men Type: BLOOD SPECIMENOrdering Facility: [facility] Address: [address] [place] [address] Performed By: #### 5 8410-2 ####[facility] LABORATORYCLIA [id number] [place] [address] [place] Hemoglobin (Bld) [Mass/Vol] 9.3 g/dL Low 11.5-15.5 [facility] Comment on above: Order Comment: Speci men Type: BLOOD SPECIMENOrdering Facility: [facility] Address: [address] [place] [address] Performed By: #### 5 8410-2 ####[facility] LABORATORYCLIA [id number] [address] MCH (RBC) [Entitic mass] 26.7 pg Normal 26.0-34.0 [facility] Comment on above: Order Comment: Speci men Type: BLOOD SPECIMENOrdering Facility: [facility] Address: [address] [place] [address] Performed By: #### 5 8410-2 ####[facility] LABORATORYCLIA [id number] [address] MCHC (RBC) [Mass/Vol] 31.4 g/dL Normal 30.5-36.0 [facility] Comment on above: Order Comment: Speci men Type: BLOOD SPECIMENOrdering Facility: [facility] Address: [address] [place] [address] Performed By: #### 5 8410-2 ####[facility] LABORATORYCLIA [id number] [address] [place] MCV (RBC) [Entitic vol] 85.1 fL Normal 80.0-100.0 C [facility] Comment on above: Order Comment: Speci men Type: BLOOD SPECIMENOrdering Facility: [facility] Address: [address] [place] [address] Performed By: #### 5 8410-2 ####[facility] LABORATORYCLIA [id number] [address] [place] Nucleated RBC (Bld) [#/Vol] 10*3/uL Normal <0.01 [facility] Comment on above: Order Comment: Speci men Type: BLOOD SPECIMENOrdering Facility: [facility] Address: [address] [place] [address] Performed By: #### 5 8410-2 ####[facility] LABORATORYCLIA [id number] [address] Platelet mean volume (Bld) [Entitic vol] 10.2 fL Normal 9.0-12.7 [facility] Comment on above: Order Comment: Speci men Type: BLOOD SPECIMENOrdering Facility: [facility] Address: [address] [place] [address] Performed By: #### 5 8410-2 ####[facility] LABORATORYCLIA [id number] [address] [place] Platelets (Bld) [#/Vol] 324 10*3/uL Normal 150-400 [facility] Comment on above: Order Comment: Speci men Type: BLOOD SPECIMENOrdering Facility: [facility] Address: [address] [place] [address] Performed By: #### 5 8410-2 ####M[facility] LABORATORYCLIA [id number] [place] [address] [place] RBC (Bld) [#/Vol] 3.48 10*6/uL Low 3.90-5.20 [facility] Comment on above: Order Comment: Speci men Type: BLOOD SPECIMENOrdering Facility: [facility] Address: [address] [place] [address] Performed By: #### 5 8410-2 ####MORGAN LABORATORYCLIA [id number] [address] [place] WBC (Bld) [#/Vol] 5.12 10*3/uL Normal 3.70-11.00 [facility] Comment on above: Order Comment: Speci men Type: BLOOD SPECIMENOrdering Facility: [facility] Address: [address] [place] [address] Performed By: #### 5 8410-2 ####MORGAN LABORATORYCLIA [id number] [place] [id number] [facility] [place] CBC panel Auto (Bld)on 06-28 Erythrocyte distribution width (RBC) [Ratio] 16.6 % High 11.5 - 15.0 % [facility] Hematocrit (Bld) [Volume fraction] 28.8 % Low 36.0 - 46.0 % [facility] Hemoglobin (Bld) [Mass/Vol] 9.0 g/dL Low 11.5 - 15.5 g/dL [facility] Interpretation and review of laboratory results Abnormal [facility] MCH (RBC) [Entitic mass] 26.8 pg 26.0 - 34.[address] [facility] MCHC (RBC) [Mass/Vol] 31.3 g/dL 30.5 - 36.0 g/dL [facility] MCV (RBC) [Entitic vol] 85.7 fL 80.0 - 100.[address] [facility] Nucleated RBC (Bld) [#/Vol] NINF [facility] Platelet mean volume (Bld) [Entitic vol] 10.5 fL 9.0 - 12.[address] [facility] Platelets (Bld) [#/Vol] 316 10*3/uL [facility] RBC (Bld) [#/Vol] 3.36 10*6/uL Low 3.90 - 5.2 0 m/uL [facility] WBC (Bld) [#/Vol] 5.27 10*3/uL [facility] Erythrocyte distribution width (RBC) [Ratio] 16.6 % High 11.5-15.0 [facility] Comment on above: Order Comment: Samiri isabella Type: BLOOD SPECIMEN Ordering Facility: [facility] Address: [address] [place] [address] Performed By: #### 2 276-4 #### [employer] [facility] CLIA [id number] [address] [place] [address] [place] Hematocrit (Bld) [Volume fraction] 28.8 % Low 36.0-46.0 [facility] Comment on above: Order Comment: Rhina mason Type: BLOOD SPECIMEN Ordering Facility: [facility] Address: [address] [place] [address] Performed By: #### 2 276-4 #### [facility] CLIA [id number] [address] [place] [address] [place] Hemoglobin (Bld) [Mass/Vol] 9.0 g/dL Low 11.5-15.5 [facility] Comment on above: Order Comment: Rhina mason Type: BLOOD SPECIMEN Ordering Facility: [facility] Address: [address] [place] [address] Performed By: #### 2 276-4 #### [facility] CLIA [id number] [address] [place] [address] [place] MCH (RBC) [Entitic mass] 26.8 pg Normal 26.0-34.0 [facility] Comment on above: Order Comment: Speci men Type: BLOOD SPECIMEN Ordering Facility: [facility] Address: [address] [place] [address] Performed By: #### 2 276-4 #### [facility] CLIA [id number] [address] [place] [address] [place] MCHC (RBC) [Mass/Vol] 31.3 g/dL Normal 30.5-36.0 [facility] Comment on above: Order Comment: Speci men Type: BLOOD SPECIMEN Ordering Facility: [facility] Address: [address] [place] [address] Performed By: #### 2 276-4 #### [facility] CLIA [id number] [address] [place] [address] [place] MCV (RBC) [Entitic vol] 85.7 fL Normal 80.0-100.0 C [facility] Comment on above: Order Comment: Speci men Type: BLOOD SPECIMEN Ordering Facility: [facility] Address: [address] [place] [address] Performed By: #### 2 276-4 #### [facility] CLIA [id number] [address] [place] [address] [place] Nucleated RBC (Bld) [#/Vol] 10*3/uL Normal <0.01 [facility] Comment on above: Order Comment: Speci men Type: BLOOD SPECIMEN [facility]ing Facility: [facility] Address: [address] [place] [address] Performed By: #### 2 276-4 #### [facility] CLIA [id number] [address] [place] [address] [place] Platelet mean volume (Bld) [Entitic vol] 10.5 fL Normal 9.0-12.7 [facility] Comment on above: Order Comment: Speci men Type: BLOOD SPECIMEN [facility]ing Facility: [facility] Address: [address] [place] [address] Performed By: #### 2 276-4 #### [facility] CLIA [id number] [address] [place] [address] [place] Platelets (Bld) [#/Vol] 316 10*3/uL Normal 150-400 [facility] Comment on above: Order Comment: Speci men Type: BLOOD SPECIMEN [facility]ing Facility: [facility] Address: [address] [place] [address] Performed By: #### 2 276-4 #### [facility] CLIA [id number] [address] [place] [address] [place] RBC (Bld) [#/Vol] 3.36 10*6/uL Low 3.90-5.20 [facility] Comment on above: Order Comment: Speci men Type: BLOOD SPECIMEN [facility]ing Facility: [facility] Address: [address] [place] [address] Performed By: #### 2 276-4 #### [facility] CLIA [id number] [address] [place] [address] [place] WBC (Bld) [#/Vol] 5.27 10*3/uL Normal 3.70-11.00 [facility] Comment on above: Order Comment: Speci men Type: BLOOD SPECIMEN [facility]ing Facility: [facility] Address: [address] [place] [address] Performed By: #### 2 276-4 #### [facility] CLIA [id number] [address] [place] [address] [place] FERRITINon 06-27-2024 Ferritin [Mass/Vol] 67.5 ng/mL 14.7 - 205.1 ng/mL [facility] Ferritin SerPl-mCncon 2023 Ferritin [Mass/Vol] 67.5 ng/mL Normal 14.7-205.1 [facility] Comment on above: Order Comment: Speci men Type: BLOOD SPECIMEN [facility]ing [facility]: [facility] Address: [address] [place] [address] Performed By: #### 2 276-4 #### [facility] CLIA [id number] [address] [place] [address] [place] Ferritin [Mass/Vol]on 2023 Interpretation and review of laboratory results Normal [facility] Iron and Iron binding capaci ty panelon 06-27-2024 Interpretation and review of laboratory results Abnormal [facility] Iron [Mass/Vol] 30 ug/dL Low 41 - 186 ug/dL [facility] Iron binding capacity [Mass/Vol] 298 ug/dL 232 - 386 ug/dL [facility] Iron/TIBC [Molar ratio] 10.1 % Low 15.0 - 57.0 % [facility] Iron [Mass/Vol] 30 ug/dL Low 41-186 [facility] Comment on above: Order Comment: Speci men Type: BLOOD SPECIMEN [facility]ing Facility: [facility] Address: [address] [place] [address] Performed By: #### 2 276-4 #### [facility] CLIA [id number] [address] [place] [address] [place] Iron binding capacity [Mass/Vol] 298 ug/dL Normal 232-386 [facility] Comment on above: Order Comment: Speci men Type: BLOOD SPECIMEN [facility]ing Facility: [facility] Address: [address] [place] [address] Performed By: #### 2 276-4 #### [facility] CLIA [id number] [address] [place] [address] [place] Iron/TIBC [Molar ratio] 10.1 % Low 15.0-57.0 C [facility] Comment on above: Order Comment: Speci men Type: BLOOD SPECIMEN [facility]ing [facility]: [facility] Address: [address] [place] [address] Performed By: #### 2 276-4 #### [facility] CLIA [id number] [address] [place] [address] [place] CBC panel Auto (Bld)on 06-25 Erythrocyte distribution width (RBC) [Ratio] 15.9 % High 11.5 - 15.0 % [facility] Hematocrit (Bld) [Volume fraction] 28.7 % Low 36.0 - 46.0 % [facility] Hemoglobin (Bld) [Mass/Vol] 9.0 g/dL Low 11.5 - 15.5 g/dL [facility] Interpretation and review of laboratory results Abnormal [facility] MCH (RBC) [Entitic mass] 26.7 pg 26.0 - 34.[address] [facility] MCHC (RBC) [Mass/Vol] 31.4 g/dL 30.5 - 36.0 g/dL [facility] MCV (RBC) [Entitic vol] 85.2 fL 80.0 - 100.[address] [facility] Nucleated RBC (Bld) [#/Vol] NINF [facility] Platelet mean volume (Bld) [Entitic vol] 10.8 fL 9.0 - 12.[address] [facility] Platelets (Bld) [#/Vol] 315 10*3/uL [facility] RBC (Bld) [#/Vol] 3.37 10*6/uL Low 3.90 - 5.2 0 m/uL [facility] WBC (Bld) [#/Vol] 4.96 10*3/uL [facility] Erythrocyte distribution width (RBC) [Ratio] 15.9 % High 11.5-15.0 [facility] Comment on above: Order Comment: Speci isabella Type: BLOOD SPECIMEN Ordering Facility: [facility] Address: [address] [place] [address] Performed By: #### 2 4362-6 #### [facility] CLIA [id number] [address] [place] [address] [place] Hematocrit (Bld) [Volume fraction] 28.7 % Low 36.0-46.0 [facility] Comment on above: Order Comment: Speci men Type: BLOOD SPECIMEN Ordering Facility: [facility] Address: [address] [place] [address] Performed By: #### 2 4362-6 #### [facility] CLIA [id number] [address] [place] [address] [place] Hemoglobin (Bld) [Mass/Vol] 9.0 g/dL Low 11.5-15.5 [facility] Comment on above: Order Comment: Speci men Type: BLOOD SPECIMEN Ordering Facility: [facility] Address: [address] [place] [address] Performed By: #### 2 4362-6 #### [facility] CLIA [id number] [address] [place] [address] [place] MCH (RBC) [Entitic mass] 26.7 pg Normal 26.0-34.0 [facility] Comment on above: Order Comment: Speci men Type: BLOOD SPECIMEN Ordering Facility: [facility] Address: [address] [place] [address] Performed By: #### 2 4362-6 #### [facility] CLIA [id number] [address] [place] [address] [place] MCHC (RBC) [Mass/Vol] 31.4 g/dL Normal 30.5-36.0 [facility] Comment on above: Order Comment: Speci men Type: BLOOD SPECIMEN Ordering Facility: [facility] Address: [address] [place] [address] Performed By: #### 2 4362-6 #### [facility] CLIA [id number] [address] [place] [address] [place] MCV (RBC) [Entitic vol] 85.2 fL Normal 80.0-100.0 C [facility] Comment on above: Order Comment: Speci men Type: BLOOD SPECIMEN Ordering Facility: [facility] Address: [address] [place] [address] Performed By: #### 2 4362-6 #### [facility] CLIA [id number] [address] [place] [address] [place] Nucleated RBC (Bld) [#/Vol] 10*3/uL Normal <0.01 [facility] Comment on above: Order Comment: Speci men Type: BLOOD SPECIMEN Ordering Facility: [facility] Address: [address] [place] [address] Performed By: #### 2 4362-6 #### [facility] CLIA [id number] [address] [place] [address] [place] Platelet mean volume (Bld) [Entitic vol] 10.8 fL Normal 9.0-12.7 [facility] Comment on above: Order Comment: Speci men Type: BLOOD SPECIMEN Ordering Facility: [facility] Address: [address] [place] [address] Performed By: #### 2 4362-6 #### [facility] CLIA [id number] [address] [place] [address] [place] Platelets (Bld) [#/Vol] 315 10*3/uL Normal 150-400 [facility] Comment on above: Order Comment: Speci men Type: BLOOD SPECIMEN Ordering Facility: [facility] Address: [address] [place] [address] Performed By: #### 2 4362-6 #### [facility] CLIA [id number] [address] [place] [address] [place] RBC (Bld) [#/Vol] 3.37 10*6/uL Low 3.90-5.20 [facility] Comment on above: Order Comment: Speci men Type: BLOOD SPECIMEN Ordering Facility: [facility] Address: [address] [place] [address] Performed By: #### 2 4362-6 #### [facility] CLIA [id number] [address] [place] [address] [place] WBC (Bld) [#/Vol] 4.96 10*3/uL Normal 3.70-11.00 [facility] Comment on above: Order Comment: Speci men Type: BLOOD SPECIMEN Ordering Facility: [facility] Address: [address] [place] [address] Performed By: #### 2 4362-6 #### [facility] CLIA [id number] [address] [place] [address] [place] Basic metabolic 2000 panelon 06-21-2024 Anion gap [Moles/Vol] 12 mmol/L 8 - 15 mmol/L [facility] Calcium [Mass/Vol] 9.3 mg/dL 8.5 - 10. 2 mg/dL [facility] Chloride [Moles/Vol] 108 mmol/L High 98 - 10 7 mmol/L [facility] CO2 [Moles/Vol] 21 mmol/L Low 22 - 30 mmol/L [facility] Creatinine [Mass/Vol] 0.92 mg/dL 0.58 - 0.96 mg/dL [facility] GFR/1.73 sq M.predicted among non-blacks MDRD (S/P/Bld) [Vol rate/Area] 62 mL/min/{1.73_m2} - PINF [facility] Comment on above: Estimated Glomerular Filtration [...] 74 - 99 mg/dL [facility] Comment on above: The [place] [employer] Association (ADA) provides guidance for [...] Standards of Medical Care in Diabetes 2016, [place] [employer]. Diabetes Care. 2016.39(Suppl 1). Interpretation and review of laboratory results Abnormal [facility] Potassium [Moles/Vol] 4.6 mmol/L 3.7 - 5.1 mmol/L [facility] Sodium [Moles/Vol] 141 mmol/L 136 - 144 mmol/L [facility] Urea nitrogen [Mass/Vol] 22 mg/dL High 7 - 21 mg/dL [facility] Anion gap [Moles/Vol] 12 mmol/L Normal 8-15 [facility] Comment on above: Order Comment: Speci men Type: BLOOD SPECIMEN Ordering Facility: [facility] Address: [address] [place] [address] Performed By: #### 2 4362-6 #### [facility] CLIA [id number] [address] [place] [address] [place] Calcium [Mass/Vol] 9.3 mg/dL Normal 8.5-10.[address] [facility] Comment on above: Order Comment: Speci men Type: BLOOD SPECIMEN Ordering Facility: [facility] Address: [address] [place] [address] Performed By: #### 2 4362-6 #### [facility] CLIA [id number] [address] [place] [address] [place] Chloride [Moles/Vol] 108 mmol/L High 98-107 [facility] Comment on above: Order Comment: Speci men Type: BLOOD SPECIMEN Ordering Facility: [facility] Address: [address] [place] [address] Performed By: #### 2 4362-6 #### [facility] CLIA [id number] [address] [place] [address] [place] CO2 [Moles/Vol] 21 mmol/L Low 22-30 [facility] Comment on above: Order Comment: Speci men Type: BLOOD SPECIMEN Ordering Facility: [facility] Address: [address] [place] [address] Performed By: #### 2 4362-6 #### [facility] CLIA [id number] [address] [place] [address] [place] Creatinine [Mass/Vol] 0.92 mg/dL Normal 0.58-0.96 [facility] Comment on above: Order Comment: Rhina mason Type: BLOOD SPECIMEN Ordering Facility: [facility] Address: [address] [place] [address] Performed By: #### 2 4362-6 #### [facility] CLIA [id number] [address] [place] [address] [place] Creatinine and Glomerular filtration rate.predicted panel (S/P/Bld) 62 mL/min/1.73m??? Normal >=60 [facility] Comment on above: Order Comment: Rhina mason Type: BLOOD SPECIMEN Ordering Facility: [facility] Address: [address] [place] [address] Result Comment: Isa mated Glomerular Filtration Rate [...] GFR. Performed By: #### 2 4362-6 #### [facility] CLIA [id number] [address] [place] [address] [place] Glucose [Mass/Vol] 101 mg/dL High 74-[address] [facility] Comment on above: Order Comment: Rhina mason Type: BLOOD SPECIMEN Ordering Facility: [facility] Address: [address] [place] [address] Result Comment: The [place] Diabetes Association (ADA) provides guidance for cutoff [...] Standards of Medical Care in Diabetes 2016, [place] [employer]. Diabetes Care. 2016.39(Suppl 1). Performed By: #### 2 4362-6 #### [facility] CLIA [id number] [address] [place] [address] [place] Potassium [Moles/Vol] 4.6 mmol/L Normal 3.7-5.1 [facility] Comment on above: Order Comment: Speci men Type: BLOOD SPECIMEN Ordering Facility: [facility] Address: [address] [place] [address] Performed By: #### 2 4362-6 #### [facility] CLIA [id number] [address] [place] [address] [place] Sodium [Moles/Vol] 141 mmol/L Normal 136-[address] [facility] Comment on above: Order Comment: Speci men Type: BLOOD SPECIMEN Ordering Facility: [facility] Address: [address] [place] [address] Performed By: #### 2 4362-6 #### [facility] CLIA [id number] [address] [place] [address] [place] Urea nitrogen [Mass/Vol] 22 mg/dL High 7-21 [facility] Comment on above: Order Comment: Speci men Type: BLOOD SPECIMEN Ordering Facility: [facility] Address: [address] [place] [address] Performed By: #### 2 4362-6 #### [facility] CLIA [id number] [address] [place] [address] [place] CBC panel Auto (Bld)on 06-21 Erythrocyte distribution width (RBC) [Ratio] 15.8 % High 11.5 - 15.0 % [facility] Hematocrit (Bld) [Volume fraction] 34.2 % Low 36.0 - 46.0 % [facility] Hemoglobin (Bld) [Mass/Vol] 10.6 g/dL Low 11.5 - 15.5 g/dL [facility] Interpretation and review of laboratory results Abnormal [facility] MCH (RBC) [Entitic mass] 26.4 pg 26.0 - 34.[address] [facility] MCHC (RBC) [Mass/Vol] 31.0 g/dL 30.5 - 36.0 g/dL [facility] MCV (RBC) [Entitic vol] 85.3 fL 80.0 - 100.[address] [facility] Nucleated RBC (Bld) [#/Vol] NINF [facility] Platelet mean volume (Bld) [Entitic vol] 10.7 fL 9.0 - 12.[address] [facility] Platelets (Bld) [#/Vol] 300 10*3/uL [facility] RBC (Bld) [#/Vol] 4.01 10*6/uL 3.90 - 5.2 0 m/uL [facility] WBC (Bld) [#/Vol] 5.52 10*3/uL [facility] Erythrocyte distribution width (RBC) [Ratio] 15.8 % High 11.5-15.0 [facility] Comment on above: Order Comment: Speci men Type: BLOOD SPECIMEN Ordering Facility: [facility] Address: [address] [place] [address] Performed By: #### 2 4362-6 #### [facility] CLIA [id number] [address] [place] [address] [place] Hematocrit (Bld) [Volume fraction] 34.2 % Low 36.0-46.0 [facility] Comment on above: Order Comment: Speci men Type: BLOOD SPECIMEN Ordering Facility: [facility] Address: [address] [place] [address] Performed By: #### 2 4362-6 #### [facility] CLIA [id number] [address] [place] [address] [place] Hemoglobin (Bld) [Mass/Vol] 10.6 g/dL Low 11.5-15.5 [facility] Comment on above: Order Comment: Speci men Type: BLOOD SPECIMEN Ordering Facility: [facility] Address: [address] [place] [address] Performed By: #### 2 4362-6 #### [facility] CLIA [id number] [address] [place] [address] [place] MCH (RBC) [Entitic mass] 26.4 pg Normal 26.0-34.0 [facility] Comment on above: Order Comment: Speci men Type: BLOOD SPECIMEN Ordering Facility: [facility] Address: [address] [place] [address] Performed By: #### 2 4362-6 #### [facility] CLIA [id number] [address] [place] [address] [place] MCHC (RBC) [Mass/Vol] 31.0 g/dL Normal 30.5-36.0 [facility] Comment on above: Order Comment: Speci men Type: BLOOD SPECIMEN Ordering Facility: [facility] Address: [address] [place] [address] Performed By: #### 2 4362-6 #### [facility] CLIA [id number] [address] [place] [address] [place] MCV (RBC) [Entitic vol] 85.3 fL Normal 80.0-100.0 C [facility] Comment on above: Order Comment: Speci men Type: BLOOD SPECIMEN Ordering Facility: [facility] Address: [address] [place] [address] Performed By: #### 2 4362-6 #### [facility] CLIA [id number] [address] [place] [address] [place] Nucleated RBC (Bld) [#/Vol] 10*3/uL Normal <0.01 [facility] Comment on above: Order Comment: Speci men Type: BLOOD SPECIMEN Ordering Facility: [facility] Address: [address] [place] [address] Performed By: #### 2 4362-6 #### [facility] CLIA [id number] [address] [place] [address] [place] Platelet mean volume (Bld) [Entitic vol] 10.7 fL Normal 9.0-12.7 [facility] Comment on above: Order Comment: Speci men Type: BLOOD SPECIMEN Ordering Facility: [facility] Address: [address] [place] [address] Performed By: #### 2 4362-6 #### [facility] CLIA [id number] [address] [place] [address] [place] Platelets (Bld) [#/Vol] 300 10*3/uL Normal 150-400 [facility] Comment on above: Order Comment: Speci men Type: BLOOD SPECIMEN Ordering Facility: [facility] Address: [address] [place] [address] Performed By: #### 2 4362-6 #### [facility] CLIA [id number] [address] [place] [address] [place] RBC (Bld) [#/Vol] 4.01 10*6/uL Normal 3.90-5.20 [facility] Comment on above: Order Comment: Speci men Type: BLOOD SPECIMEN Ordering Facility: [facility] Address: [address] [place] [address] Performed By: #### 2 4362-6 #### [facility] CLIA [id number] [address] [place] [address] [place] WBC (Bld) [#/Vol] 5.52 10*3/uL Normal 3.70-11.00 [facility] Comment on above: Order Comment: Speci men Type: BLOOD SPECIMEN Ordering Facility: [facility] Address: [address] [place] [address] Performed By: #### 2 4362-6 #### [facility] CLIA [id number] [address] [place] [address] [place] Basic metabolic 2000 panelon 06-19-2024 Anion gap [Moles/Vol] 10 mmol/L Normal 8-15 [facility] Comment on above: Order Comment: Speci men Type: BLOOD SPECIMEN Ordering Facility: [facility] Address: [address] [place] [address] Performed By: #### 2 4321-2, 57404-3, #### [facility] CLIA [id number] [address] [place] [address] [place] Calcium [Mass/Vol] 8.9 mg/dL Normal 8.5-10.2 [facility] Comment on above: Order Comment: Speci men Type: BLOOD SPECIMEN Ordering Facility: [facility] Address: [address] [place] [address] Performed By: #### 2 4321-2, 41929-7, #### [facility] CLIA [id number] [address] [place] [address] [place] Chloride [Moles/Vol] 109 mmol/L High 98-107 [facility] Comment on above: Order Comment: Speci men Type: BLOOD SPECIMEN Ordering Facility: [facility] Address: [address] [place] [address] Performed By: #### 2 4321-2, 83587-7, #### [facility] CLIA [id number] [address] [place] [address] [place] CO2 [Moles/Vol] 21 mmol/L Low 22-30 [facility] Comment on above: Order Comment: Speci men Type: BLOOD SPECIMEN Ordering Facility: [facility] Address: [address] [place] [address] Performed By: #### 2 4321-2, 51274-0, #### [facility] CLIA [id number] [address] [place] [address] [place] Creatinine [Mass/Vol] 1.04 mg/dL High 0.58-0.96 [facility] Comment on above: Order Comment: Speci men Type: BLOOD SPECIMEN Ordering Facility: [facility] Address: [address] [place] [address] Performed By: #### 2 4321-2, 41209-5, #### [facility] CLIA [id number] [address] Creatinine and Glomerular filtration rate.predicted panel (S/P/Bld) 53 mL/min/1.73m??? Low >=60 [facility] Comment on above: Order Comment: Rhina mason Type: BLOOD SPECIMEN Ordering Facility: [facility] Address: [address] [place] [address] Result Comment: Isa mated Glomerular Filtration Rate [...] actual GFR. Performed By: #### 2 4321-2, 82254-3, #### [facility] CLIA [id number] [address] Glucose [Mass/Vol] 103 mg/dL High 74-99 [facility] Comment on above: Order Comment: Rhina mason Type: BLOOD SPECIMEN Ordering Facility: [facility] Address: [address] [place] [address] Result Comment: The [place] Diabetes [employer] (ADA) provides guidance for cutoff [...] Standards of Medical Care in Diabetes 2016, [place] [employer]. Diabetes Care. 2016.39(Suppl 1). Performed By: #### 2 4321-2, 17019-7, #### [facility] CLIA [id number] [address] STATES OF [facility] Potassium [Moles/Vol] 4.8 mmol/L Normal 3.7-5.1 [facility] Comment on above: Order Comment: Speci men Type: BLOOD SPECIMEN Ordering Facility: [facility] Address: [address] [place] [address] Performed By: #### 2 4321-2, 78574-0, #### [facility] CLIA [id number] [address] STATES OF [facility] Sodium [Moles/Vol] 140 mmol/L Normal 136-144 [facility] Comment on above: Order Comment: Speci men Type: BLOOD SPECIMEN Ordering Facility: [facility] Address: [address] [place] [address] Performed By: #### 2 4321-2, 90187-0, #### [facility] CLIA [id number] [address] STATES [facility] Urea nitrogen [Mass/Vol] 25 mg/dL High 7-21 [facility] Comment on above: Order Comment: Speci men Type: BLOOD SPECIMEN Ordering Facility: [facility] Address: [address] [place] [address] Performed By: #### 2 4321-2, 74591-4, #### [facility] CLIA [id number] [address] STATES OF [facility] CBC panel Auto (Bld)on 06-19 Erythrocyte distribution width (RBC) [Ratio] 15.9 % High 11.5-15.0 [facility] Comment on above: Order Comment: Speci men Type: BLOOD SPECIMEN Ordering Facility: [facility] Address: [address] [place] [address] Performed By: #### 2 4321-2, 89263-9, #### [facility] CLIA [id number] [address] [place] Hematocrit (Bld) [Volume fraction] 30.6 % Low 36.0-46.0 [facility] Comment on above: Order Comment: Speci men Type: BLOOD SPECIMEN Ordering Facility: [facility] Address: [address] [place] [address] Performed By: #### 2 4321-2, 30366-6, #### [facility] CLIA [id number] [address] OF [facility] Hemoglobin (Bld) [Mass/Vol] 9.5 g/dL Low 11.5-15.5 [facility] Comment on above: Order Comment: Speci men Type: BLOOD SPECIMEN Ordering Facility: [facility] Address: [address] [place] [address] Performed By: #### 2 4321-2, 87288-5, #### [facility] CLIA [id number] [address] OF [facility] MCH (RBC) [Entitic mass] 26.5 pg Normal 26.0-34.0 [facility] Comment on above: Order Comment: Speci men Type: BLOOD SPECIMEN Ordering Facility: [facility] Address: [address] [place] [address] Performed By: #### 2 4321-2, 48238-8, #### [facility] CLIA [id number] [address] OF [facility] MCHC (RBC) [Mass/Vol] 31.0 g/dL Normal 30.5-36.0 [facility] Comment on above: Order Comment: Speci men Type: BLOOD SPECIMEN Ordering Facility: [facility] Address: [address] [place] [address] Performed By: #### 2 4321-2, 18579-8, #### [facility] CLIA [id number] [address] MCV (RBC) [Entitic vol] 85.5 fL Normal 80.0-100.0 [facility] Comment on above: Order Comment: Speci men Type: BLOOD SPECIMEN Ordering Facility: [facility] Address: [address] [place] [address] Performed By: #### 2 4321-2, 61707-2, #### [facility] CLIA [id number] [address] [place] Nucleated RBC (Bld) [#/Vol] 10*3/uL Normal <0.01 [facility] Comment on above: Order Comment: Speci men Type: BLOOD SPECIMEN Ordering Facility: [facility] Address: [address] [place] [address] Performed By: #### 2 4321-2, 85157-9, #### [facility] CLIA [id number] [address] Platelet mean volume (Bld) [Entitic vol] 10.4 fL Normal 9.0-12.7 [facility] Comment on above: Order Comment: Speci men Type: BLOOD SPECIMEN Ordering Facility: [facility] Address: [address] [place] [address] Performed By: #### 2 1-2, 89540-2, #### [facility] CLIA [id number] [address] Platelets (Bld) [#/Vol] 245 10*3/uL Normal 150-400 [facility] Comment on above: Order Comment: Speci men Type: BLOOD SPECIMEN Ordering Facility: [facility] Address: [address] [place] [address] Performed By: #### 2 4321-2, 98339-1, #### [facility] CLIA [id number] [address] [place] RBC (Bld) [#/Vol] 3.58 10*6/uL Low 3.90-5.20 [facility] Comment on above: Order Comment: Speci men Type: BLOOD SPECIMEN Ordering Facility: [facility] Address: [address] [place] [address] Performed By: #### 2 4321-2, 76186-8, #### [facility] CLIA [id number] [address] [place] [address] [place] WBC (Bld) [#/Vol] 4.67 10*3/uL Normal 3.70-11.00 [facility] Comment on above: Order Comment: Speci men Type: BLOOD SPECIMEN Ordering Facility: [facility] Address: [address] [place] [address] [place] [address] Performed By: #### 2 4321-2, 96227-1, 54644-3 #### [facility] CLIA [id number] [address] [place] [id number] [facility] [place] CNDSon 06-19-2024 CNDS HNO ID: [id number] Author: DON EDWARDS DO Service: Hospital Medicine [...] by therapy and prison facility was recommended. He slowly was improving. She was discharged to prison facility in stable condition. OTHER PROBLEMS/DIAGNOSIS: Principal [...] call for appointment?: Yes Jared Evans MD [phone] [address] [facility] [address] PCP Requested Referral Follow-Up Appointment When: In 2 weeks Patient/Parents to call for appointment?: Yes Hermila Padilla MD [phone] [place] [address] PCP Requested Referral Follow-Up Appointment For hydronephrosis and renal lesion When: In 2 weeks Patient/Parents to call for appointment?: Yes Mikhail Vuong Jr., MD [phone] [address] [place] [address] PCP Requested Referral Follow-Up Appointment With: neurology When: In 4 weeks Patient/Parents to call for appointment?: Yes Additional Provider to Provider Information: Treatment Team: Attending Provider: Don Edwards DO Consulting: Pratibha Logan MD Consulting: Torsten Silva MD Primary Service: [facility] Critical Issues: SPECIALIST FOLLOW-UP: urology, cardiology, neurology LABS AND PROCEDURES PENDING AT DISCHARGE: No pending results. FOLLOW-UP APPOINTMENTS ALREADY SCHEDULED WITH A [facility] PROVIDER: No future appointments. Discharge Information Row Name ED to Hosp-Admission (Current) from 06/10/2024 in [place] NEURO/CARD Rehab Facility Agency [facility] ALLERGIES Allergen Reactions Percocet [Oxycodone* Itching DISCHARGE MEDICA (more content not included)... Normal [facility] Basic metabolic 2000 panelon 06-18-2024 Anion gap [Moles/Vol] 10 mmol/L Normal 8-15 [facility] Comment on above: Order Comment: Speci men Type: BLOOD SPECIMEN Ordering Facility: [facility] Address: [address] [place] [address] Performed By: #### 2 4321-2, 31899-7, #### [facility] CLIA [id number] [address] [place] [address] [place] Calcium [Mass/Vol] 8.9 mg/dL Normal 8.5-10.2 [facility] Comment on above: Order Comment: Speci men Type: BLOOD SPECIMEN Ordering Facility: [facility] Address: [address] [place] [address] Performed By: #### 2 4321-2, 82959-9, #### [facility] CLIA [id number] 1 [place] [address] [place] Chloride [Moles/Vol] 110 mmol/L High 98-107 [facility] Comment on above: Order Comment: Speci men Type: BLOOD SPECIMEN Ordering Facility: [facility] Address: [address] [place] [address] Performed By: #### 2 4321-2, 49050-8, #### [facility] CLIA [id number] 1 [place] [address] [place] CO2 [Moles/Vol] 21 mmol/L Low 22-30 [facility] Comment on above: Order Comment: Specrobson mason Type: BLOOD SPECIMEN Ordering Facility: [facility] Address: [address] [place] [address] Performed By: #### 2 4321-2, 29397-4, #### [facility] CLIA [id number] [address] OF [facility] Creatinine [Mass/Vol] 0.96 mg/dL Normal 0.58-0.96 [facility] Comment on above: Order Comment: Rhina mason Type: BLOOD SPECIMEN Ordering Facility: [facility] Address: [address] [place] [address] Performed By: #### 2 4321-2, 04713-0, #### [facility] CLIA [id number] [address] Creatinine and Glomerular filtration rate.predicted panel (S/P/Bld) 58 mL/min/1.73m??? Low >=60 [facility] Comment on above: Order Comment: Specrobson mason Type: BLOOD SPECIMEN Ordering Facility: [facility] Address: [address] [place] [address] Result Comment: Isa mated Glomerular Filtration Rate [...] actual GFR. Performed By: #### 2 4321-2, 95975-1, #### [facility] CLIA [id number] [address] [place] Glucose [Mass/Vol] 112 mg/dL High 74-99 [facility] Comment on above: Order Comment: Samiri men Type: BLOOD SPECIMEN Ordering Facility: [facility] Address: [address] [place] [address] Result Comment: The [place] [employer] (ADA) provides guidance for cutoff [...] Standards of Medical Care in Diabetes 2016, [place] [employer]. Diabetes Care. 2016.39(Suppl 1). Performed By: #### 2 4321-2, 94288-0, #### [facility] CLIA [id number] 1 [place] [address] [place] Potassium [Moles/Vol] 4.4 mmol/L Normal 3.7-5.1 [facility] Comment on above: Order Comment: Speci men Type: BLOOD SPECIMEN Ordering Facility: [facility] Address: [address] [place] [address] Performed By: #### 2 4321-2, 02188-3, #### [facility] CLIA [id number] [address] [place] [address] [place] Sodium [Moles/Vol] 141 mmol/L Normal 136-144 [facility] Comment on above: Order Comment: Speci men Type: BLOOD SPECIMEN Ordering Facility: [facility] Address: [address] [place] [address] Performed By: #### 2 4321-2, 96127-6, #### [facility] CLIA [id number] 1 [place] [address] [place] Urea nitrogen [Mass/Vol] 22 mg/dL High 7-21 [facility] Comment on above: Order Comment: Speci men Type: BLOOD SPECIMEN Ordering Facility: [facility] Address: [address] [place] [place] [id number] Performed By: #### 2 4321-2, 04367-2, 71551-1 #### [facility] CLIA [id number] [address] [place] CBC panel Auto (Bld)on 06-18 Erythrocyte distribution width (RBC) [Ratio] 15.9 % High 11.5-15.0 [facility] Comment on above: Order Comment: Speci men Type: BLOOD SPECIMENOrdering Facility: [facility] Address: [address] [place] [address] Performed By: #### 5 8410-2 ####[facility]IA [id number] [address] [place] Hematocrit (Bld) [Volume fraction] 34.3 % Low 36.0-46.0 [facility] Comment on above: Order Comment: Speci men Type: BLOOD SPECIMENOrdering Facility: [facility] Address: [address] [place] [address] Performed By: #### 5 8410-2 ####[facility] [id number] [address] [place] Hemoglobin (Bld) [Mass/Vol] 10.7 g/dL Low 11.5-15.5 [facility] Comment on above: Order Comment: Speci men Type: BLOOD SPECIMENOrdering Facility: [facility] Address: [address] [place] [address] Performed By: #### 5 8410-2 ####[facility] [id number] [address] [place] MCH (RBC) [Entitic mass] 26.7 pg Normal 26.0-34.0 [facility] Comment on above: Order Comment: Speci men Type: BLOOD SPECIMENOrdering Facility: [facility] Address: [address] [place] [address] Performed By: #### 5 8410-2 ####[facility]ORY[facility]IA [id number] [address] [place] MCHC (RBC) [Mass/Vol] 31.2 g/dL Normal 30.5-36.0 [facility] Comment on above: Order Comment: Speci men Type: BLOOD SPECIMENOrdering Facility: [facility] Address: [address] [place] [address] Performed By: #### 5 8410-2 ####[facility]ORY[facility]IA [id number] [address] MCV (RBC) [Entitic vol] 85.5 fL Normal 80.0-100.0 [facility] Comment on above: Order Comment: Speci men Type: BLOOD SPECIMENOrdering Facility: [facility] Address: [address] [place] [address] Performed By: #### 5 8410-2 ####[facility]IA [id number] [address] Nucleated RBC (Bld) [#/Vol] 10*3/uL Normal <0.01 [facility] Comment on above: Order Comment: Speci men Type: BLOOD SPECIMENOrdering Facility: [facility] Address: [address] [place] [address] Performed By: #### 5 8410-2 ####[facility]IA [id number] [address] Platelet mean volume (Bld) [Entitic vol] 10.0 fL Normal 9.0-12.7 [facility] Comment on above: Order Comment: Speci men Type: BLOOD SPECIMENOrdering Facility: [facility] Address: [address] [place] [address] Performed By: #### 5 8410-2 ####[facility]ORYCLIA [id number] [address] Platelets (Bld) [#/Vol] 273 10*3/uL Normal 150-400 [facility] Comment on above: Order Comment: Speci men Type: BLOOD SPECIMENOrdering Facility: [facility] Address: [address] [place] [address] Performed By: #### 5 8410-2 ####[facility]ORYCLIA [id number] [address] [place] RBC (Bld) [#/Vol] 4.01 10*6/uL Normal 3.90-5.20 [facility] Comment on above: Order Comment: Speci men Type: BLOOD SPECIMENOrdering Facility: [facility] Address: [address] [place] [address] Performed By: #### 5 8410-2 ####[facility]ORYCLIA [id number] [address] OF [facility] WBC (Bld) [#/Vol] 5.29 10*3/uL Normal 3.70-11.00 [facility] Comment on above: Order Comment: Speci men Type: BLOOD SPECIMENOrdering Facility: [facility] Address: [address] [place] [address] Performed By: #### 5 8410-2 ####[facility]ORYCLIA [id number] [address] Hepatic function 2000 panelo n 06-18-2024 Albumin [Mass/Vol] 3.5 g/dL Low 3.9-4.9 [facility] Comment on above: Order Comment: Speci men Type: BLOOD SPECIMEN Ordering Facility: [facility] Address: [address] [place] [address] Performed By: #### 2 4321-2, 98846-8, #### [facility] CLIA [id number] [address] ALP [Catalytic activity/Vol] 80 U/L Normal 34-123 [facility] Comment on above: Order Comment: Speci men Type: BLOOD SPECIMEN Ordering Facility: [facility] Address: [address] [place] [address] Performed By: #### 2 4321-2, 35678-7, #### [facility] CLIA [id number] [address] ALT With P-5'-P [Catalytic activity/Vol] 16 U/L Normal 7-38 [facility] Comment on above: Order Comment: Speci men Type: BLOOD SPECIMEN Ordering Facility: [facility] Address: [address] [place] [address] Performed By: #### 2 4321-2, 21273-0, #### [facility] CLIA [id number] [address] OF [facility] AST With P-5'-P [Catalytic activity/Vol] 20 U/L Normal 13-35 [facility] Comment on above: Order Comment: Speci men Type: BLOOD SPECIMEN Ordering Facility: [facility] Address: [address] [place] [address] Performed By: #### 2 4321-2, 89111-2, #### [facility] CLIA [id number] [address] STATES OF [facility] Bilirubin [Mass/Vol] 0.3 mg/dL Normal 0.2-1.3 [facility] Comment on above: Order Comment: Speci men Type: BLOOD SPECIMEN Ordering Facility: [facility] Address: [address] [place] [address] Performed By: #### 2 4321-2, 92395-5, #### [facility] CLIA [id number] [address] Bilirubin.conjugated [Mass/Vol] mg/dL Normal <0.2 [facility] Comment on above: Order Comment: Speci men Type: BLOOD SPECIMEN Ordering Facility: [facility] Address: [address] [place] [address] Performed By: #### 2 4321-2, 85595-0, #### [facility] CLIA [id number] [address] STATES OF [facility] Protein [Mass/Vol] 6.0 g/dL Low 6.3-8.0 [facility] Comment on above: Order Comment: Speci men Type: BLOOD SPECIMEN Ordering Facility: [facility] Address: [address] [place] [address] Performed By: #### 2 4321-2, 33524-3, 95231-7 #### [facility] CLIA [id number] [address] [place] [id number] [facility] Magnesium SerPl-mCncon 06-18 Magnesium [Mass/Vol] 1.9 mg/dL Normal 1.7-2.3 [facility] Comment on above: Order Comment: Speci men Type: BLOOD SPECIMEN Ordering Facility: [facility] Address: [address] [address] Performed By: #### 2 4321-2, 50373-5, 74202-9 #### [facility] CLIA [id number] [address] NUTRITIONon 06-18-2024 NUTRITION HNO ID: [id number] Author: NELSON AVIL[address] Service: Nutrition Therapy [...] 06/13/24 0917 Anthropometrics: Height: 162.6 cm (5' 4) Weight: 69 kg (152 lb 1.9 oz) Usual Weight: (145-155 lbs) Usual Weight Obtained From: Patient Weight Change: 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; 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) MNT Billing: $ Initial Assessment: 1-15 minutes SIGNATURE: Nelson Avila RD PATIENT NAME: Mel Castillo DATE: June 18, 2024 TIME: 11:18 AM Normal [facility] THERAPY NTon 06-18-2024 THERAPY NT HNO ID: [id number] Author: SELENA BARR, PT Service: Physical Therapy Author Type: Physical Therapist Type: Therapy (PT/OT/Speech/Resp) Filed: 06/18/2024 12:53 Note Text: Physical Therapy Treatment Summary SERVICE DATE: 06/18/2024 SERVICE TIME: 1056 to 1129 ROOM: [place] [address] PT 6 Clicks Score: 16 DISCHARGE RECOMMENDATIONS [...] Lack of coordination-other TREATMENT INTERVENTIONS Therapeutic Activity (91919) Therapeutic Activity (38103) Treatment Minutes: 25 $ Therapeutic Activity (02036) Billed Units: 2 units Timed Code Treatment [...] Balance, Non-func (more content not included)... Normal [facility] THERAPY NT HNO ID: [id number] Author: ULI JEFFERSON OTR/L Service: Occupational Therapy Author Type: Occupational Therapist Type: Therapy (PT/OT/Speech/Resp) Filed: 06/18/2024 13:34 Note Text: Occupational Therapy Treatment Summary SERVICE DATE: 06/18/2024 SERVICE TIME: 1130 to 1154 ROOM: [place] [address] OT 6 Clicks Score: 15 DISCHARGE RECOMMENDATIONS [...] General symptoms and signs-other TREATMENT INTERVENTIONS Self Long Term Management (34990), Cognitive Training (37456 and 71239) Timed Code Treatment (minutes): 24 Skilled Treatment Time (minutes): 24 Self Long Term Management (80977) Treatment Minutes: 11 $ Self Long Term Management (89053) Billed Units: 1 unit Minimal assist with meal set-up. Cueing for physical assist with maintaining functional grasp on packaging to tear open. Pt demonstrated impaired hand-eye coordination/visual spatial awareness with bringing food to mouth. Provided further cueing and tactile awareness/sequencing to maximize ease with self feeding. Cognitive Training First 15 Minutes (22352) : 13 $ Cognitive Training First 15 Minutes (92405) Billed Units: 1 unit Facilitated completion of [facility] Mental Examination (UMS) to [...] Occupational Therapy, Safety/Judgment, Sitting Balance to Improve Murray with ADLs/Self-Care, Cognitive Skills, Command Following, Expected Functional Level, Feeding Tasks, Low Vision Strategies, Positioning, Visual Scanning/Attention Activities THERAPEUTIC SKILLS USED Activity Dosing, Cues for (more content not included)... Normal [facility] CBC panel Auto (Bld)on 06-17 Erythrocyte distribution width (RBC) [Ratio] 15.7 % High 11.5-15.0 [facility] Comment on above: Order Comment: Speci isabella Type: BLOOD SPECIMEN Ordering Facility: [facility] Address: [address] [place] [address] Performed By: #### 2 4321-2, 74411-7, #### [facility] CLIA [id number] [address] OF [facility] Hematocrit (Bld) [Volume fraction] 35.1 % Low 36.0-46.0 [facility] Comment on above: Order Comment: Speci isabella Type: BLOOD SPECIMEN Ordering Facility: [facility] Address: [address] [place] [address] Performed By: #### 2 4321-2, 08087-6, #### [facility] CLIA [id number] [address] OF [facility] Hemoglobin (Bld) [Mass/Vol] 11.0 g/dL Low 11.5-15.5 [facility] Comment on above: Order Comment: Speci men Type: BLOOD SPECIMEN Ordering Facility: [facility] Address: [address] [place] [address] Performed By: #### 2 4321-2, 54213-7, #### [facility] CLIA [id number] [address] MCH (RBC) [Entitic mass] 26.4 pg Normal 26.0-34.0 [facility] Comment on above: Order Comment: Speci men Type: BLOOD SPECIMEN Ordering Facility: [facility] Address: [address] [place] [address] Performed By: #### 2 4321-2, 70416-3, #### [facility] CLIA [id number] [address] MCHC (RBC) [Mass/Vol] 31.3 g/dL Normal 30.5-36.0 [facility] Comment on above: Order Comment: Speci men Type: BLOOD SPECIMEN Ordering Facility: [facility] Address: [address] [place] [address] Performed By: #### 2 4321-2, 38957-9, #### [facility] CLIA [id number] [address] [place] MCV (RBC) [Entitic vol] 84.4 fL Normal 80.0-100.0 [facility] Comment on above: Order Comment: Speci men Type: BLOOD SPECIMEN Ordering Facility: [facility] Address: [address] [place] [address] Performed By: #### 2 4321-2, 97955-0, #### [facility] CLIA [id number] [address] [place] Nucleated RBC (Bld) [#/Vol] 10*3/uL Normal <0.01 [facility] Comment on above: Order Comment: Speci men Type: BLOOD SPECIMEN Ordering Facility: [facility] Address: [address] [place] [address] Performed By: #### 2 1-2, 11980-3, #### [facility] CLIA [id number] [address] [place] Platelet mean volume (Bld) [Entitic vol] 10.1 fL Normal 9.0-12.7 [facility] Comment on above: Order Comment: Speci men Type: BLOOD SPECIMEN Ordering Facility: [facility] Address: [address] [place] [address] Performed By: #### 2 4321-2, 50593-8, #### [facility] CLIA [id number] [address] [place] [address] [place] Platelets (Bld) [#/Vol] 294 10*3/uL Normal 150-400 [facility] Comment on above: Order Comment: Speci men Type: BLOOD SPECIMEN Ordering Facility: [facility] Address: [address] [place] [address] Performed By: #### 2 4321-2, 60312-7, #### [facility] CLIA [id number] [address] [place] RBC (Bld) [#/Vol] 4.16 10*6/uL Normal 3.90-5.20 [facility] Comment on above: Order Comment: Speci men Type: BLOOD SPECIMEN Ordering Facility: [facility] Address: [address] [place] [address] Performed By: #### 2 4321-2, 54679-9, #### [facility] CLIA [id number] [address] [place] WBC (Bld) [#/Vol] 5.63 10*3/uL Normal 3.70-11.00 [facility] Comment on above: Order Comment: Speci men Type: BLOOD SPECIMEN Ordering Facility: [facility] Address: [address] [place] [address] Performed By: #### 2 4321-2, 59196-4, #### [facility] CLIA [id number] [address] [place] CBC panel Auto (Bld)on 06-16 Erythrocyte distribution width (RBC) [Ratio] 15.4 % High 11.5-15.0 [facility] Comment on above: Order Comment: Speci men Type: BLOOD SPECIMEN Ordering Facility: [facility] Address: [address] [place] [address] Performed By: #### 2 4321-2, 79921-6, #### [facility] CLIA [id number] [address] [place] Hematocrit (Bld) [Volume fraction] 34.9 % Low 36.0-46.0 [facility] Comment on above: Order Comment: Speci men Type: BLOOD SPECIMEN Ordering Facility: [facility] Address: [address] [place] [address] Performed By: #### 2 4321-2, 58877-5, #### [facility] CLIA [id number] [address] Hemoglobin (Bld) [Mass/Vol] 10.9 g/dL Low 11.5-15.5 [facility] Comment on above: Order Comment: Speci men Type: BLOOD SPECIMEN Ordering Facility: [facility] Address: [address] [place] [address] Performed By: #### 2 4321-2, 31153-3, #### [facility] CLIA [id number] [address] MCH (RBC) [Entitic mass] 26.4 pg Normal 26.0-34.0 [facility] Comment on above: Order Comment: Speci men Type: BLOOD SPECIMEN Ordering Facility: [facility] Address: [address] [place] [address] Performed By: #### 2 4320-2, 61527-9, #### [facility] CLIA [id number] [address] MCHC (RBC) [Mass/Vol] 31.2 g/dL Normal 30.5-36.0 [facility] Comment on above: Order Comment: Speci men Type: BLOOD SPECIMEN Ordering Facility: [facility] Address: [address] [place] [address] Performed By: #### 2 4321-2, 01590-0, #### [facility] CLIA [id number] [address] MCV (RBC) [Entitic vol] 84.5 fL Normal 80.0-100.0 [facility] Comment on above: Order Comment: Speci men Type: BLOOD SPECIMEN Ordering Facility: [facility] Address: [address] [place] [address] Performed By: #### 2 4321-2, 88803-6, #### [facility] CLIA [id number] [address] [place] Nucleated RBC (Bld) [#/Vol] 10*3/uL Normal <0.01 [facility] Comment on above: Order Comment: Speci men Type: BLOOD SPECIMEN Ordering Facility: [facility] Address: [address] [place] [address] Performed By: #### 2 4321-2, 02662-9, #### [facility] CLIA [id number] [address] [place] Platelet mean volume (Bld) [Entitic vol] 9.8 fL Normal 9.0-12.7 [facility] Comment on above: Order Comment: Speci men Type: BLOOD SPECIMEN Ordering Facility: [facility] Address: [address] [place] [address] Performed By: #### 2 432-2, 42118-7, #### [facility] CLIA [id number] [address] [place] Platelets (Bld) [#/Vol] 274 10*3/uL Normal 150-400 [facility] Comment on above: Order Comment: Speci men Type: BLOOD SPECIMEN Ordering Facility: [facility] Address: [address] [place] [address] Performed By: #### 2 1-2, 86400-1, #### [facility] CLIA [id number] [address] [place] RBC (Bld) [#/Vol] 4.13 10*6/uL Normal 3.90-5.20 [facility] Comment on above: Order Comment: Speci men Type: BLOOD SPECIMEN Ordering Facility: [facility] Address: [address] [place] [address] Performed By: #### 2 4321-2, 67687-6, #### [facility] CLIA [id number] [address] [place] WBC (Bld) [#/Vol] 6.06 10*3/uL Normal 3.70-11.00 [facility] Comment on above: Order Comment: Speci men Type: BLOOD SPECIMEN Ordering Facility: [facility] Address: [address] [place] [address] Performed By: #### 2 4321-2, 35363-9, #### [facility] CLIA [id number] [address] [place] CBC panel Auto (Bld)on 06-15 Erythrocyte distribution width (RBC) [Ratio] 15.4 % High 11.5-15.0 [facility] Comment on above: Order Comment: Speci men Type: BLOOD SPECIMEN Ordering Facility: [facility] Address: [address] [place] [address] Performed By: #### 2 4321-2, 03668-8, #### [facility] CLIA [id number] [address] Hematocrit (Bld) [Volume fraction] 33.9 % Low 36.0-46.0 [facility] Comment on above: Order Comment: Speci men Type: BLOOD SPECIMEN Ordering Facility: [facility] Address: [address] [place] [address] Performed By: #### 2 4321-2, 78743-9, #### [facility] CLIA [id number] [address] [place] Hemoglobin (Bld) [Mass/Vol] 10.6 g/dL Low 11.5-15.5 [facility] Comment on above: Order Comment: Speci men Type: BLOOD SPECIMEN Ordering Facility: [facility] Address: [address] [place] [address] Performed By: #### 2 4321-2, 04120-2, #### [facility] CLIA [id number] [address] [place] MCH (RBC) [Entitic mass] 26.2 pg Normal 26.0-34.0 [facility] Comment on above: Order Comment: Speci men Type: BLOOD SPECIMEN Ordering Facility: [facility] Address: [address] [place] [address] Performed By: #### 2 1-2, 92274-4, #### [facility] CLIA [id number] [address] MCHC (RBC) [Mass/Vol] 31.3 g/dL Normal 30.5-36.0 [facility] Comment on above: Order Comment: Speci men Type: BLOOD SPECIMEN Ordering Facility: [facility] Address: [address] [place] [address] Performed By: #### 2 1-2, 22854-9, #### [facility] CLIA [id number] [address] [place] MCV (RBC) [Entitic vol] 83.9 fL Normal 80.0-100.0 [facility] Comment on above: Order Comment: Speci men Type: BLOOD SPECIMEN Ordering Facility: [facility] Address: [address] [place] [address] Performed By: #### 2 4320-2, 42266-8, #### [facility] CLIA [id number] [address] Nucleated RBC (Bld) [#/Vol] 10*3/uL Normal <0.01 [facility] Comment on above: Order Comment: Speci men Type: BLOOD SPECIMEN Ordering Facility: [facility] Address: [address] [place] [address] Performed By: #### 2 1-2, 51347-2, #### [facility] CLIA [id number] [address] Platelet mean volume (Bld) [Entitic vol] 9.9 fL Normal 9.0-12.7 [facility] Comment on above: Order Comment: Speci men Type: BLOOD SPECIMEN Ordering Facility: [facility] Address: [address] [place], [place] [address] Performed By: #### 2 4321-2, 08214-1, 02734-1 #### [facility] CLIA [id number] [address] Platelets (Bld) [#/Vol] 280 10*3/uL Normal 150-400 [facility] Comment on above: Order Comment: Speci men Type: BLOOD SPECIMEN Ordering Facility: [facility] Address: [address] [place] [address] Performed By: #### 2 4321-2, 05255-3, #### [facility] CLIA [id number] [address] RBC (Bld) [#/Vol] 4.04 10*6/uL Normal 3.90-5.20 [facility] Comment on above: Order Comment: Speci men Type: BLOOD SPECIMEN Ordering Facility: [facility] Address: [address] [place] [address] Performed By: #### 2 4321-2, 01785-3, #### [facility] CLIA [id number] [address] WBC (Bld) [#/Vol] 5.80 10*3/uL Normal 3.70-11.00 [facility] Comment on above: Order Comment: Speci men Type: BLOOD SPECIMEN Ordering Facility: [facility] Address: [address] [place] [address] Performed By: #### 2 4321-2, 01749-4, #### [facility] CLIA [id number] [address] THERAPY NTon 06-15-2024 THERAPY NT HNO ID: [id number] Author: MEHREEN MANCERA PT Service: Physical Therapy Author Type: Physical Therapist Type: Therapy (PT/OT/Speech/Resp) Filed: 06/15/2024 16:13 Note Text: Physical Therapy Treatment Summary SERVICE DATE: 06/15/2024 SERVICE TIME: 1518 to 1547 ROOM: [id number] PT 6 Clicks Score: 13 DISCHARGE RECOMMENDATIONS [...] Lack of coordination-other TREATMENT INTERVENTIONS Therapeutic Activity (00492), Neuromuscular Reeducation (75210) Timed Code Treatment (minutes): 29 Skilled Treatment Time (minutes): 29 Therapeutic Activity (84261) Treatment Minutes: 10 $ Therapeutic Activity (27502) Billed Units: 1 unit Neuromuscular Reeducation (45085) Treatment Minutes: 19 $ Neuromuscular Reeducation (43483) Billed Units: 1 unit Sitting balance and [...] to control (more content not included)... Normal [facility] CBC panel Auto (Bld)on 06-14 Erythrocyte distribution width (RBC) [Ratio] 15.5 % High 11.5-15.0 [facility] Comment on above: Order Comment: Speci men Type: BLOOD SPECIMENOrdering Facility: [facility] Address: [address] [place] [address] Performed By: #### 5 8410-2 ####[facility] [id number] [address] Hematocrit (Bld) [Volume fraction] 34.8 % Low 36.0-46.0 [facility] Comment on above: Order Comment: Speci men Type: BLOOD SPECIMENOrdering Facility: [facility] Address: [address] [place] [address] Performed By: #### 5 8410-2 ####[facility] [id number] [address] OF [facility] Hemoglobin (Bld) [Mass/Vol] 11.0 g/dL Low 11.5-15.5 [facility] Comment on above: Order Comment: Speci men Type: BLOOD SPECIMENOrdering Facility: [facility] Address: [address] [place] [address] Performed By: #### 5 8410-2 ####[facility] [id number] [address] MCH (RBC) [Entitic mass] 26.6 pg Normal 26.0-34.0 [facility] Comment on above: Order Comment: Speci men Type: BLOOD SPECIMENOrdering Facility: [facility] Address: [address] [place] [address] Performed By: #### 5 8410-2 ####[facility]IA [id number] [address] [place] MCHC (RBC) [Mass/Vol] 31.6 g/dL Normal 30.5-36.0 [facility] Comment on above: Order Comment: Speci men Type: BLOOD SPECIMENOrdering Facility: [facility] Address: [address] [place] [address] Performed By: #### 5 8410-2 ####[facility]ORYCLIA [id number] [place] [address] [place] MCV (RBC) [Entitic vol] 84.3 fL Normal 80.0-100.0 [facility] Comment on above: Order Comment: Speci men Type: BLOOD SPECIMENOrdering Facility: [facility] Address: [address] [place] [address] Performed By: #### 5 8410-2 ####[facility]ORY[facility]IA [id number] [address] [place] Nucleated RBC (Bld) [#/Vol] 10*3/uL Normal <0.01 [facility] Comment on above: Order Comment: Speci men Type: BLOOD SPECIMENOrdering Facility: [facility] Address: [address] [place] [address] Performed By: #### 5 8410-2 ####[facility]ORYCLIA [id number] [address] [place] Platelet mean volume (Bld) [Entitic vol] 9.7 fL Normal 9.0-12.7 [facility] Comment on above: Order Comment: Speci men Type: BLOOD SPECIMENOrdering Facility: [facility] Address: [address] [place] [address] Performed By: #### 5 8410-2 ####[facility]ORYCLIA [id number] [address] [place] Platelets (Bld) [#/Vol] 278 10*3/uL Normal 150-400 [facility] Comment on above: Order Comment: Speci men Type: BLOOD SPECIMENOrdering Facility: [facility] Address: [address] [place] [address] Performed By: #### 5 8410-2 ####[facility]ORYCLIA [id number] [address] [place] RBC (Bld) [#/Vol] 4.13 10*6/uL Normal 3.90-5.20 [facility] Comment on above: Order Comment: Speci men Type: BLOOD SPECIMENOrdering Facility: [facility] Address: [address] [place] [address] Performed By: #### 5 8410-2 ####[facility]ORYCLIA [id number] [place] [address] [place] WBC (Bld) [#/Vol] 4.70 10*3/uL Normal 3.70-11.00 [facility] Comment on above: Order Comment: Speci men Type: BLOOD SPECIMENOrdering Facility: [facility] Address: [facility] [place] [id number] Performed By: #### 5 8410-2 ####[facility]ORYCLIA [id number] [place] [address] [facility] NURSING PROGon 06-14-2024 NURSING PROG HNO ID: [id number] Author: JOSE JERNIGAN RN Service: Nursing Author [...] - ordered XR and lidocaine patch Normal [facility] XR SHLDR >/=3V AP/JASON AP/OTH [...] portions of the right lung are clear. Womens Volleyball Coach: DEVEN Transcribe Date/Time: Jun 14 2024 1:33P Dictated by : DEV WELCH MD This examination was interpreted and the report reviewed and electronically signed by: DEV WELCH MD on Jun 14 2024 1:35PM EST [id number] Normal [facility] ALLIED HEALTHon 06-13-2024 ALLIED HEALTH HNO ID: [id number] Author: ALFRED DALEY Chaplain Service: ? Author Type: Community Relations Officer Type: Allied Health Filed: 06/13/2024 14:38 Note Text: SPIRITUAL CARE ASSESSMENT SERVICE DATE: 06/13/2024 SERVICE TIME: 11:53 Visit with: Patient Length of visit (minutes): 5 Yazdanism / Spirituality: Pt did not Disc. Reason: [...] TIME: 2:31 PM PAGER/CONTACT #: [phone] Normal [facility] Basic metabolic 2000 panelon 06-13-2024 Anion gap [Moles/Vol] 11 mmol/L Normal 8-15 [facility] Comment on above: Order Comment: Speci men Type: BLOOD SPECIMEN Ordering Facility: [facility] Address: [address] [place] [address] Performed By: #### 2 4321-2, 28128-0, #### [facility] CLIA [id number] [address] [place] [address] [place] Calcium [Mass/Vol] 8.9 mg/dL Normal 8.5-10.2 [facility] Comment on above: Order Comment: Speci men Type: BLOOD SPECIMEN Ordering Facility: [facility] Address: [address] [place] [address] Performed By: #### 2 4321-2, 25924-6, #### [facility] CLIA [id number] 1 [place] [address] [place] Chloride [Moles/Vol] 101 mmol/L Normal 98-107 [facility] Comment on above: Order Comment: Speci men Type: BLOOD SPECIMEN Ordering Facility: [facility] Address: [facility] [place] [address] Performed By: #### 2 4321-2, 64588-7, #### [facility] CLIA [id number] [address] OF [facility] CO2 [Moles/Vol] 24 mmol/L Normal 22-30 [facility] Comment on above: Order Comment: Speci men Type: BLOOD SPECIMEN Ordering Facility: [facility] Address: [address] [place] [address] Performed By: #### 2 4321-2, 15026-3, #### [facility] CLIA [id number] [address] OF [facility] Creatinine [Mass/Vol] 1.04 mg/dL High 0.58-0.96 [facility] Comment on above: Order Comment: Speci men Type: BLOOD SPECIMEN Ordering Facility: [facility] Address: [address] [place] [address] Performed By: #### 2 4321-2, 31307-2, #### [facility] CLIA [id number] [address] Creatinine and Glomerular filtration rate.predicted panel (S/P/Bld) 53 mL/min/1.73m??? Low >=60 [facility] Comment on above: Order Comment: Speci men Type: BLOOD SPECIMEN Ordering Facility: [facility] Address: [address] [place] [address] Result Comment: Isa mated Glomerular Filtration Rate [...] actual GFR. Performed By: #### 2 4321-2, 53791-7, #### [facility] CLIA [id number] 1 [place] [address] [place] Glucose [Mass/Vol] 95 mg/dL Normal 74-99 [facility] Comment on above: Order Comment: Rhina mason Type: BLOOD SPECIMEN Ordering Facility: [facility] Address: [address] [place] [address] Result Comment: The [place] [employer] (ADA) provides guidance for cutoff [...] Standards of Medical Care in Diabetes 2016, [place] [employer]. Diabetes Care. 2016.39(Suppl 1). Performed By: #### 2 4321-2, 15574-6, #### [facility] CLIA [id number] 1 [place] [address] [place] Potassium [Moles/Vol] 3.8 mmol/L Normal 3.7-5.1 [facility] Comment on above: Order Comment: Rhina mason Type: BLOOD SPECIMEN Ordering Facility: [facility] Address: [address] [place] [address] Performed By: #### 2 4321-2, 79915-1, #### [facility] CLIA [id number] 1 [place] [address] [place] Sodium [Moles/Vol] 136 mmol/L Normal 136-144 [facility] Comment on above: Order Comment: Rhina mason Type: BLOOD SPECIMEN Ordering Facility: [facility] Address: [address] [place], [place] [address] Performed By: #### 2 4321-2, 86335-2, #### [facility] CLIA [id number] [address] [place] Urea nitrogen [Mass/Vol] 16 mg/dL Normal 7-21 [facility] Comment on above: Order Comment: Speci men Type: BLOOD SPECIMEN Ordering Facility: [facility] Address: [address] [place] [address] Performed By: #### 2 4321-2, 04866-4, 34595-0 #### [facility] CLIA [id number] [address] [place] CBC panel Auto (Bld)on 06-13 Erythrocyte distribution width (RBC) [Ratio] 15.5 % High 11.5-15.0 [facility] Comment on above: Order Comment: Speci men Type: BLOOD SPECIMENOrdering Facility: [facility] Address: [address] [place] [address] Performed By: #### 5 8410-2 ####[facility]ORYCLIA [id number] [address] [place] Hematocrit (Bld) [Volume fraction] 33.1 % Low 36.0-46.0 [facility] Comment on above: Order Comment: Speci men Type: BLOOD SPECIMENOrdering Facility: [facility] Address: [address] [place] [address] Performed By: #### 5 8410-2 ####[facility]ORYCLIA [id number] [address] [place] Hemoglobin (Bld) [Mass/Vol] 10.2 g/dL Low 11.5-15.5 [facility] Comment on above: Order Comment: Speci men Type: BLOOD SPECIMENOrdering Facility: [facility] Address: [address] [place] [address] Performed By: #### 5 8410-2 ####[facility]ORYCLIA [id number] [address] [place] MCH (RBC) [Entitic mass] 26.5 pg Normal 26.0-34.0 [facility] Comment on above: Order Comment: Speci men Type: BLOOD SPECIMENOrdering Facility: [facility] Address: [address] [place] [address] Performed By: #### 5 8410-2 ####[facility]ORYCLIA [id number] [address] MCHC (RBC) [Mass/Vol] 30.8 g/dL Normal 30.5-36.0 [facility] Comment on above: Order Comment: Speci men Type: BLOOD SPECIMENOrdering Facility: [facility] Address: [address] [place] [address] Performed By: #### 5 8410-2 ####[facility]ORYCLIA [id number] [address] OF [facility] MCV (RBC) [Entitic vol] 86.0 fL Normal 80.0-100.0 [facility] Comment on above: Order Comment: Speci men Type: BLOOD SPECIMENOrdering Facility: [facility] Address: [address] [place] [address] Performed By: #### 5 8410-2 ####[facility]ORYCLIA [id number] [address] Nucleated RBC (Bld) [#/Vol] 10*3/uL Normal <0.01 [facility] Comment on above: Order Comment: Speci men Type: BLOOD SPECIMENOrdering Facility: [facility] Address: [address] [place] [address] Performed By: #### 5 8410-2 ####[facility]ORYCLIA [id number] [address] Platelet mean volume (Bld) [Entitic vol] 9.6 fL Normal 9.0-12.7 [facility] Comment on above: Order Comment: Speci men Type: BLOOD SPECIMENOrdering Facility: [facility] Address: [address] [place] [address] Performed By: #### 5 8410-2 ####[facility]ORYCLIA [id number] [address] [place] Platelets (Bld) [#/Vol] 287 10*3/uL Normal 150-400 [facility] Comment on above: Order Comment: Speci men Type: BLOOD SPECIMENOrdering Facility: [facility] Address: [address] [place] [address] Performed By: #### 5 8410-2 ####[facility]ATORYCLIA [id number] [place] [address] [place] RBC (Bld) [#/Vol] 3.85 10*6/uL Low 3.90-5.20 [facility] Comment on above: Order Comment: Speci men Type: BLOOD SPECIMENOrdering Facility: [facility] Address: [address] [place] [address] Performed By: #### 5 8410-2 ####[facility]ORYCLIA [id number] [place] [address] [place] [facility] WBC (Bld) [#/Vol] 4.79 10*3/uL Normal 3.70-11.00 [facility] Comment on above: Order Comment: Speci men Type: BLOOD SPECIMENOrdering Facility: [facility] Address: [address] [place] [address] Performed By: #### 5 8410-2 ####[facility]ORYCLIA [id number] [address] [place] aPTT PPPon 06-13-2024 aPTT Coag (PPP) [Time] 51.3 s High 23.0-32.4 [facility] Comment on above: Order Comment: Speci men Type: BLOOD SPECIMEN Ordering Facility: [facility] Address: [address] [place] [address] Performed By: #### 2 4321-2, 68919-6, 40242-5 #### [facility] CLIA [id number] [address] OF [facility] aPTT Coag (PPP) [Time] 89.0 s High 23.0-32.4 [facility] Comment on above: Order Comment: Speci men Type: BLOOD SPECIMEN Ordering Facility: [facility] Address: [address] [place], [place] [address] Performed By: #### 2 4321-2, 20860-6, #### [facility] CLIA [id number] [address] [place] ALLIED HEALTHon 06-12-2024 ALLIED HEALTH HNO ID: [id number] Author: HELLEN SEVILLA RT(R) Service: Radiology Author [...] PATIENT PRESENTS WITH AN IMPLANTABLE OR ATTACHED MEDICAL HEALTH RESEARCHER: No RADIOLOGY DEPARTMENT: CT; Exam(s) Completed: Brain PERIPHERAL IV DATA: Not applicable SIGNED BY: RT Reji(R) June 12, 2024 9:13 AM Normal [facility] CBC W Auto Differential pane l (Bld)on 06-12-2024 Basophils (Bld) [#/Vol] 0.03 10*3/uL Normal <0.11 [facility] Comment on above: Order Comment: Speci isabella Type: BLOOD SPECIMEN Ordering Facility: [facility] Address: [address] [place] [address] Performed By: #### 2 4321-2, 67303-2, #### [facility] CLIA [id number] [address] Basophils/100 WBC (Bld) 0.6 % Normal [facility] Comment on above: Order Comment: Speci men Type: BLOOD SPECIMEN Ordering Facility: [facility] Address: [address] [place] [address] Performed By: #### 2 4321-2, 01943-7, #### [facility] CLIA [id number] [address] Differential cell count method Nom (Bld) Auto Normal [facility] Comment on above: Order Comment: Speci men Type: BLOOD SPECIMEN Ordering Facility: [facility] Address: [address] [place] [address] Performed By: #### 2 4321-2, 74429-9, #### [facility] CLIA [id number] [address] [place] Eosinophils (Bld) [#/Vol] 0.05 10*3/uL Normal <0.46 [facility] Comment on above: Order Comment: Speci men Type: BLOOD SPECIMEN Ordering Facility: [facility] Address: [address] [place] [address] Performed By: #### 2 1-2, 82278-2, #### [facility] CLIA [id number] [address] [place] Eosinophils/100 WBC (Bld) 1.0 % Normal [facility] Comment on above: Order Comment: Speci men Type: BLOOD SPECIMEN Ordering Facility: [facility] Address: [address] [place] [address] Performed By: #### 2 4321-2, 41860-1, #### [facility] CLIA [id number] [address] [place] Erythrocyte distribution width (RBC) [Ratio] 15.6 % High 11.5-15.0 [facility] Comment on above: Order Comment: Speci men Type: BLOOD SPECIMEN Ordering Facility: [facility] Address: [address] [place] [address] Performed By: #### 2 4321-2, 56009-8, #### [facility] CLIA [id number] [address] [place] [address] [place] Hematocrit (Bld) [Volume fraction] 34.6 % Low 36.0-46.0 [facility] Comment on above: Order Comment: Speci men Type: BLOOD SPECIMEN Ordering Facility: [facility] Address: [address] [place] [address] Performed By: #### 2 4321-2, 44265-3, #### [facility] CLIA [id number] [address] [place] [address] [place] Hemoglobin (Bld) [Mass/Vol] 10.6 g/dL Low 11.5-15.5 [facility] Comment on above: Order Comment: Speci men Type: BLOOD SPECIMEN Ordering Facility: [facility] Address: [address] [place] [address] Performed By: #### 2 4321-2, 97772-0, #### [facility] CLIA [id number] [address] [place] Immature granulocytes (Bld) [#/Vol] 10*3/uL Normal <0.10 [facility] Comment on above: Order Comment: Speci men Type: BLOOD SPECIMEN Ordering Facility: [facility] Address: [address] [place] [address] Performed By: #### 2 4321-2, 34502-9, #### [facility] CLIA [id number] [address] [place] Immature granulocytes/100 WBC (Bld) 0.2 % Normal [facility] Comment on above: Order Comment: Speci men Type: BLOOD SPECIMEN Ordering Facility: [facility] Address: [address] [place] [address] Performed By: #### 2 4321-2, 68405-3, #### [facility] CLIA [id number] [address] [place] [address] [place] Lymphocytes (Bld) [#/Vol] 1.65 10*3/uL Normal 1.00-4.00 [facility] Comment on above: Order Comment: Speci men Type: BLOOD SPECIMEN Ordering Facility: [facility] Address: [address] [place] [address] Performed By: #### 2 4321-2, 74925-9, #### [facility] CLIA [id number] [address] Lymphocytes/100 WBC (Bld) 31.9 % Normal [facility] Comment on above: Order Comment: Speci men Type: BLOOD SPECIMEN Ordering Facility: [facility] Address: [address] [place] [address] Performed By: #### 2 1-2, 19151-6, #### [facility] CLIA [id number] [address] [place] MCH (RBC) [Entitic mass] 26.2 pg Normal 26.0-34.0 [facility] Comment on above: Order Comment: Speci men Type: BLOOD SPECIMEN Ordering Facility: [facility] Address: [address] [place] [address] Performed By: #### 2 4321-2, 79518-2, #### [facility] CLIA [id number] [address] OF [facility] MCHC (RBC) [Mass/Vol] 30.6 g/dL Normal 30.5-36.0 [facility] Comment on above: Order Comment: Speci men Type: BLOOD SPECIMEN Ordering Facility: [facility] Address: [address] [place] [address] Performed By: #### 2 4321-2, 24462-9, #### [facility] CLIA [id number] [address] MCV (RBC) [Entitic vol] 85.6 fL Normal 80.0-100.0 [facility] Comment on above: Order Comment: Speci men Type: BLOOD SPECIMEN Ordering Facility: [facility] Address: [address] [place] [address] Performed By: #### 2 4321-2, 21839-9, #### [facility] CLIA [id number] [address] [place] Monocytes (Bld) [#/Vol] 0.46 10*3/uL Normal <0.87 [facility] Comment on above: Order Comment: Speci men Type: BLOOD SPECIMEN Ordering Facility: [facility] Address: [address] [place] [address] Performed By: #### 2 4321-2, 21753-6, #### [facility] CLIA [id number] [address] OF [facility] Monocytes/100 WBC (Bld) 8.9 % Normal [facility] Comment on above: Order Comment: Speci men Type: BLOOD SPECIMEN Ordering Facility: [facility] Address: [address] [place] [address] Performed By: #### 2 1-2, 86280-6, #### [facility] CLIA [id number] [address] STATES OF [facility] Neutrophils (Bld) [#/Vol] 2.97 10*3/uL Normal 1.45-7.50 [facility] Comment on above: Order Comment: Speci men Type: BLOOD SPECIMEN Ordering Facility: [facility] Address: [address] [place] [address] Performed By: #### 2 4321-2, 52089-8, #### [facility] CLIA [id number] [address] STATES OF [facility] Neutrophils/100 WBC (Bld) 57.4 % Normal [facility] Comment on above: Order Comment: Speci men Type: BLOOD SPECIMEN Ordering Facility: [facility] Address: [address] [place] [address] Performed By: #### 2 4321-2, 47298-6, #### [facility] CLIA [id number] [address] [place] Nucleated RBC (Bld) [#/Vol] 10*3/uL Normal <0.01 [facility] Comment on above: Order Comment: Speci men Type: BLOOD SPECIMEN Ordering Facility: [facility] Address: [address] [place] [address] Performed By: #### 2 4321-2, 50361-8, #### [facility] CLIA [id number] [address] [place] Nucleated RBC/100 WBC (Bld) [Ratio] 0.0 /100 WBC Normal [facility] Comment on above: Order Comment: Speci men Type: BLOOD SPECIMEN Ordering Facility: [facility] Address: [address] [place] [address] Performed By: #### 2 4321-2, 68185-9, #### [facility] CLIA [id number] [address] Platelet mean volume (Bld) [Entitic vol] 9.6 fL Normal 9.0-12.7 [facility] Comment on above: Order Comment: Speci men Type: BLOOD SPECIMEN Ordering Facility: [facility] Address: [address] [place] [address] Performed By: #### 2 4321-2, 41773-7, #### [facility] CLIA [id number] [address] OF [place] Platelets (Bld) [#/Vol] 314 10*3/uL Normal 150-400 [facility] Comment on above: Order Comment: Speci men Type: BLOOD SPECIMEN Ordering Facility: [facility] Address: [address] [place] [address] Performed By: #### 2 4321-2, 96882-2, #### [facility] CLIA [id number] [address] [place] RBC (Bld) [#/Vol] 4.04 10*6/uL Normal 3.90-5.20 [facility] Comment on above: Order Comment: Speci men Type: BLOOD SPECIMEN Ordering Facility: [facility] Address: [address] [place], [place] [address] Performed By: #### 2 4321-2, 40752-1, #### [facility] CLIA [id number] 1 [place] [address] [place] WBC (Bld) [#/Vol] 5.17 10*3/uL Normal 3.70-11.00 [facility] Comment on above: Order Comment: Speci men Type: BLOOD SPECIMEN Ordering Facility: [facility] Address: [address] [place], [place] [address] Performed By: #### 2 4321-2, 64583-6, #### [facility] CLIA [id number] [address] [place] CONSULTon 06-12-2024 CONSULT HNO ID: [id number] Author: MINA TALBERT MD Service: Cardiovascular Disease Author Type: Physician Type: Consults Filed: 06/12/2024 10:40 Note Text: CARDIOLOGY CONSULTATION- [facility] Patient Name: Mel Castillo : 1940 PRIMARY CARE PHYSICIAN: Jared Evans MD [address] [place] [address] REFERRING PHYSICIAN No referring provider defined for [...] presumptive 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[facility] with history of prior stroke PAD [...] the hospital a few months ago at [facility] she was taking her [...] BEDTIME Don Edwards DO 80 mg at 11/25/24 2134 acetaminophen 650 mg tab(s) (TYLENOL) 650 [...] (Src) 98.4 (Oral) Resp 18 Ht 5' 4 (1.63m) Wt 152 lb 8.9 oz (69.2kg) SpO2 92% BMI 26.17 kg/(m2). O2 Therapy: Room Air BP w/Orthostatic Vitals Date and Time Orthostatic BP Orthostatic Pulse (more content not included)... Normal [facility] CONSULT PROGon 06-12-2024 CONSULT PROG HNO ID: [id number] Author: NICOLAS TESFAYE APRN.SHAMIKA Service: Neurology General [...] (Oral) Resp 18 Ht 162.6 cm (5' 4) Wt 69.2 kg (152 lb 8.9 oz) [...] Score: 1 (06/12/24 0945 : Nicolas Tesfaye, PROFESSOR OF SPECIAL EDUCATION.NON PROFIT FINANCIAL CONTROLLER) 1 MENTAL STATUS: Alert, oriented to person, [...] and Prevention (personally reviewed by Nicolas Tesfaye APRN.NON PROFIT FINANCIAL CONTROLLER): Daily Rounding Date: 06/12/24 Daily Rounding Time: [...] Mel Hernandez (more content not included)... Normal [facility] CT BRAIN WO IVCONon 06-12-20 CT BRAIN WO IVCON * * *Final Report* * * DATE OF EXAM: Jun 12 2024 9:25AM [facility] 0504 - CT BRAIN WO IVCON [...] intracranial hemorrhage. Chronic changes, as detailed above. Womens Volleyball Coach: DEVEN Transcribe Date/Time: Jun 12 2024 9:42A Dictated by : LYDIA EVANS MD This examination was interpreted and the report reviewed and electronically signed by: LYDIA EVANS MD on Jun 12 2024 9:47AM EST [id number] Normal [facility] Comprehensive metabolic 2000 panelon 06-12-2024 Albumin [Mass/Vol] 3.6 g/dL Low 3.9-4.9 [facility] Comment on above: Order Comment: Speci men Type: BLOOD SPECIMEN Ordering Facility: [facility] Address: [address] [place] [address] Performed By: #### 2 4321-2, 60037-3, #### [facility] CLIA [id number] [address] STATES OF [facility] ALP [Catalytic activity/Vol] 88 U/L Normal 34-123 [facility] Comment on above: Order Comment: Speci men Type: BLOOD SPECIMEN Ordering Facility: [facility] Address: [address] [place] [address] Performed By: #### 2 4321-2, 71162-1, #### [facility] CLIA [id number] [address] [place] ALT With P-5'-P [Catalytic activity/Vol] 6 U/L Low 7-38 [facility] Comment on above: Order Comment: Speci men Type: BLOOD SPECIMEN Ordering Facility: [facility] Address: [address] [place] [address] Performed By: #### 2 4321-2, 21741-5, #### [facility] CLIA [id number] [address] [place] Anion gap [Moles/Vol] 13 mmol/L Normal 8-15 [facility] Comment on above: Order Comment: Speci men Type: BLOOD SPECIMEN Ordering Facility: [facility] Address: [address] [place] [address] Performed By: #### 2 4321-2, 62699-5, #### [facility] CLIA [id number] 1 [place] [address] [place] AST With P-5'-P [Catalytic activity/Vol] 9 U/L Low 13-35 [facility] Comment on above: Order Comment: Speci men Type: BLOOD SPECIMEN Ordering Facility: [facility] Address: [address] [place] [address] Performed By: #### 2 4321-2, 76664-6, #### [facility] CLIA [id number] 1 [place] [address] [place] Bilirubin [Mass/Vol] 0.6 mg/dL Normal 0.2-1.3 [facility] Comment on above: Order Comment: Speci men Type: BLOOD SPECIMEN Ordering Facility: [facility] Address: [address] [place] [address] Performed By: #### 2 4321-2, 17248-3, #### [facility] CLIA [id number] 1 [place] [address] [place] Calcium [Mass/Vol] 9.2 mg/dL Normal 8.5-10.2 [facility] Comment on above: Order Comment: Speci men Type: BLOOD SPECIMEN Ordering Facility: [facility] Address: [address] [place] [address] Performed By: #### 2 4321-2, 61258-4, #### [facility] CLIA [id number] 1 [place] [address] [place] Chloride [Moles/Vol] 101 mmol/L Normal 98-107 [facility] Comment on above: Order Comment: Speci men Type: BLOOD SPECIMEN Ordering Facility: [facility] Address: [address] [place] [address] Performed By: #### 2 4321-2, 64579-4, #### [facility] CLIA [id number] 1 [place] [address] [place] CO2 [Moles/Vol] 23 mmol/L Normal 22-30 [facility] Comment on above: Order Comment: Speci men Type: BLOOD SPECIMEN Ordering Facility: [facility] Address: [address] [place] [address] Performed By: #### 2 4321-2, 21568-9, #### [facility] CLIA [id number] [address] [place] Creatinine [Mass/Vol] 1.02 mg/dL High 0.58-0.96 [facility] Comment on above: Order Comment: Speci men Type: BLOOD SPECIMEN Ordering Facility: [facility] Address: [address] [place] [address] Performed By: #### 2 4321-2, 61043-2, #### [facility] CLIA [id number] [address] Creatinine and Glomerular filtration rate.predicted panel (S/P/Bld) 54 mL/min/1.73m??? Low >=60 [facility] Comment on above: Order Comment: Specrobson men Type: BLOOD SPECIMEN Ordering Facility: [facility] Address: [address] [place] [address] Result Comment: Isa mated Glomerular Filtration Rate [...] actual GFR. Performed By: #### 2 4321-2, 92742-1, #### [facility] CLIA [id number] 1 [place] [address] [place] Glucose [Mass/Vol] 109 mg/dL High 74-99 [facility] Comment on above: Order Comment: Speci men Type: BLOOD SPECIMEN Ordering Facility: [facility] Address: [address] [place] [address] Result Comment: The [place] [employer] (ADA) provides guidance for cutoff [...] Standards of Medical Care in Diabetes 2016, [place] [employer]. Diabetes Care. 2016.39(Suppl 1). Performed By: #### 2 4321-2, 45349-0, #### [facility] CLIA [id number] 1 [place] [address] [place] Potassium [Moles/Vol] 4.0 mmol/L Normal 3.7-5.1 [facility] Comment on above: Order Comment: Rhina mason Type: BLOOD SPECIMEN Ordering Facility: [facility] Address: [address] [place] [address] Performed By: #### 2 4321-2, 71763-2, #### [facility] CLIA [id number] 1 [place] [address] [place] Protein [Mass/Vol] 6.4 g/dL Normal 6.3-8.0 [facility] Comment on above: Order Comment: Rhina mason Type: BLOOD SPECIMEN Ordering Facility: [facility] Address: [address] [place] [address] Performed By: #### 2 4321-2, 31923-1, #### [facility] CLIA [id number] 1 [place] [address] [place] Sodium [Moles/Vol] 137 mmol/L Normal 136-144 [facility] Comment on above: Order Comment: Samiri isabella Type: BLOOD SPECIMEN Ordering Facility: [facility] Address: [address] [place] [address] Performed By: #### 2 4321-2, 94523-5, #### [facility] CLIA [id number] [address] [place] [address] Urea nitrogen [Mass/Vol] 12 mg/dL Normal 7-21 [facility] Comment on above: Order Comment: Rhina mason Type: BLOOD SPECIMEN Ordering Facility: [facility] Address: [address] [place] [address] Performed By: #### 2 4321-2, 23709-6, 70022-7 #### [facility] CLIA [id number] [address] Magnesium SerPl-mCncon 06-12 Magnesium [Mass/Vol] 2.3 mg/dL Normal 1.7-2.3 [facility] Comment on above: Order Comment: Rhina mason Type: BLOOD SPECIMEN Ordering Facility: [facility] Address: [address] [place] [address] Performed By: #### 2 4321-2, 82901-8, 62840-2 #### [facility] CLIA [id number] [address] OF [facility] NURSING PROGon 06-12-2024 NURSING PROG HNO ID: [id number] Author: ROBINSON VELÁSQUEZ, RADHA Service: ? Author [...] Next PTT draw due at 1900 Normal [facility] PT EDon 06-12-2024 PT ED HNO ID: [id number] Author: DOT PETERSON tali Service: Pharmacy Author Type: ? Type: Patient Education Filed: 06/12/2024 16:17 Note Text: Attestation signed by Dot Peterson [facility] ED at 06/12/2024 4:17 PM I have reviewed [...] questions. Patient aware of copay. Nayana Rowan, Washer Operator [facility] THERAPY NTon 06-12-2024 THERAPY NT HNO ID: [id number] Author: LATOYA LONG PT Service: Physical Therapy Author Type: Physical Therapist Type: Therapy (PT/OT/Speech/Resp) Filed: 06/12/2024 15:33 Note Text: Physical Therapy Treatment Summary SERVICE DATE: 06/12/2024 SERVICE TIME: 1445 to 1509 ROOM: [place] [address] PT 6 Clicks Score: 13 DISCHARGE RECOMMENDATIONS [...] Lack of coordination-other TREATMENT INTERVENTIONS Therapeutic Activity (60345), Neuromuscular Reeducation (67178) Timed Code Treatment (minutes): 23 Skilled Treatment Time (minutes): 23 Therapeutic Activity (50280) Treatment Minutes: 10 $ Therapeutic Activity (32900) Billed Units: 1 unit Training and assist with bed mobility, transfers and taking steps in place and side steps along the EOB with the walker. Neuromuscular Reeducation (27718) Treatment Minutes: 13 $ Neuromuscular Reeducation (20623) Billed Units: 1 unit Instructed pt in [...] position andrea (more content not included)... Normal [facility] THERAPY NT HNO ID: [id number] Author: SAMI WEINBERG OTR/L Service: Occupational Therapy Author Type: Occupational Therapist Type: Therapy (PT/OT/Speech/Resp) Filed: 06/12/2024 08:50 Note Text: Occupational Therapy Evaluation Summary SERVICE DATE: 06/12/2024 SERVICE TIME: 810 to 833 ROOM: [place] [address] OT 6 Clicks Score: 15 DISCHARGE RECOMMENDATIONS [...] and signs-other TREATMENT INTERVENTIONS Evaluation, Therapeutic Activity (71938) Timed Code Treatment (minutes): 8 Skilled Treatment Time (minutes): 23 $ Evaluation - Moderate (61760) Billed Units: 1 unit Therapeutic Activity (34676) Treatment Minutes: 8 $ Therapeutic Activity (54194) Billed Units: 1 unit TRAINING AND EDUCATION PROVIDED Assistive Device Use, Bed Mobility, Benefits of In-Hospital Mobility, Cognitive Stimulation Activities, Discharge Planning, Disease Specific Education, Role of Occupational Therapy, Safety/Judgment, Sitting Balance to Improve [place] with ADLs/Self-Care THERAPEUTIC SKILLS USED Activity Dosing, [...] Stand By (more content not included)... Normal [facility] aPTT PPPon 06-12-2024 aPTT Coag (PPP) [Time] 56.1 s High 23.0-32.4 [facility] Comment on above: Order Comment: Speci men Type: BLOOD SPECIMEN Ordering Facility: [facility] Address: [address] [place] [address] [place] [address] Performed By: #### 2 4321-2, 60775-7, 12843-9 #### [facility] CLIA [id number] [address] aPTT Coag (PPP) [Time] 79.0 s High 23.0-32.4 [facility] Comment on above: Order Comment: Speci men Type: BLOOD SPECIMEN Ordering Facility: [facility] Address: [address] [place], [place] [address] Performed By: #### 1 4979-9 #### [facility] CLIA [id number] [address] aPTT Coag (PPP) [Time] 123.9 s High 23.0-32.4 [facility] Comment on above: Order Comment: Speci men Type: BLOOD SPECIMEN Ordering Facility: [facility] Address: [address] [place], [place] [address] Performed By: #### 2 4321-2, 29053-9, #### [facility] CLIA [id number] [address] aPTT Coag (PPP) [Time] 117.3 s High 23.0-32.4 [facility] Comment on above: Order Comment: Speci men Type: BLOOD SPECIMEN Ordering Facility: [facility] Address: [address] [place], [place] [address] Performed By: #### 2 4321-2, 03536-3, 00786-5 #### [facility] CLIA [id number] [address] OF [place] 36on 06-11-[address] [place] [address] [facility] HNO ID: [id number] Author: FABIO KERR Tech Service: ? Author Type: Principal Electrical Engineer Type: Allied Health Filed: 06/11/2024 14:16 Note [...] PATIENT PRESENTS WITH AN IMPLANTABLE OR ATTACHED MEDICAL HEALTH RESEARCHER: No RADIOLOGY DEPARTMENT: MR; Exam(s) Completed: Head: Routine Brain [place] MRA MRA Carotid PERIPHERAL IV DATA: Not applicable SIGNED BY: Anne Marie Carrillo June 11, 2024 2:15 PM Normal [facility] CBC W Auto Differential pane l (Bld)on 06-11-2024 Basophils (Bld) [#/Vol] 0.03 10*3/uL Normal <0.11 [facility] Comment on above: Order Comment: Rhina mason Type: BLOOD SPECIMEN Ordering Facility: [facility] Address: [address] [place] [address] Performed By: #### 2 4321-2, 22022-4, #### [facility] CLIA [id number] [address] [place] Basophils/100 WBC (Bld) 0.4 % Normal [facility] Comment on above: Order Comment: Rhina mason Type: BLOOD SPECIMEN Ordering Facility: [facility] Address: [address] [place] [address] Performed By: #### 2 4321-2, 42408-2, #### [facility] CLIA [id number] [address] [place] Differential cell count method Nom (Bld) Auto Normal [facility] Comment on above: Order Comment: Samiri isabella Type: BLOOD SPECIMEN Ordering Facility: [facility] Address: [address] [place] [address] Performed By: #### 2 4321-2, 33478-8, #### [facility] CLIA [id number] [address] [place] Eosinophils (Bld) [#/Vol] 10*3/uL Normal <0.46 [facility] Comment on above: Order Comment: Speci men Type: BLOOD SPECIMEN Ordering Facility: [facility] Address: [address] [place] [address] Performed By: #### 2 4321-2, 59298-7, #### [facility] CLIA [id number] [address] [place] Eosinophils/100 WBC (Bld) 0.3 % Normal [facility] Comment on above: Order Comment: Speci men Type: BLOOD SPECIMEN Ordering Facility: [facility] Address: [address] [place] [address] Performed By: #### 2 4321-2, 89238-2, #### [facility] CLIA [id number] [address] [place] Erythrocyte distribution width (RBC) [Ratio] 15.6 % High 11.5-15.0 [facility] Comment on above: Order Comment: Speci men Type: BLOOD SPECIMEN Ordering Facility: [facility] Address: [address] [place] [address] Performed By: #### 2 4321-2, 70585-8, #### [facility] CLIA [id number] [address] [place] Hematocrit (Bld) [Volume fraction] 37.6 % Normal 36.0-46.0 [facility] Comment on above: Order Comment: Speci men Type: BLOOD SPECIMEN Ordering Facility: [facility] Address: [address] [place] [address] Performed By: #### 2 4321-2, 21025-6, #### [facility] CLIA [id number] [address] [place] Hemoglobin (Bld) [Mass/Vol] 11.5 g/dL Normal 11.5-15.5 [facility] Comment on above: Order Comment: Speci men Type: BLOOD SPECIMEN Ordering Facility: [facility] Address: [address] [place] [address] Performed By: #### 2 4321-2, 36580-5, #### [facility] CLIA [id number] 1 [place] [address] [place] Immature granulocytes (Bld) [#/Vol] 0.03 10*3/uL Normal <0.10 [facility] Comment on above: Order Comment: Speci men Type: BLOOD SPECIMEN Ordering Facility: [facility] Address: [address] [place] [address] Performed By: #### 2 4321-2, 98090-5, #### [facility] CLIA [id number] [address] [place] Immature granulocytes/100 WBC (Bld) 0.4 % Normal [facility] Comment on above: Order Comment: Speci men Type: BLOOD SPECIMEN Ordering Facility: [facility] Address: [address] [place] [address] Performed By: #### 2 1-2, 97702-0, #### [facility] CLIA [id number] [address] [place] [address] [place] Lymphocytes (Bld) [#/Vol] 1.26 10*3/uL Normal 1.00-4.00 [facility] Comment on above: Order Comment: Speci men Type: BLOOD SPECIMEN Ordering Facility: [facility] Address: [address] [place] [address] Performed By: #### 2 4321-2, 66999-2, #### [facility] CLIA [id number] [address] [place] Lymphocytes/100 WBC (Bld) 16.9 % Normal [facility] Comment on above: Order Comment: Speci men Type: BLOOD SPECIMEN Ordering Facility: [facility] Address: [address] [place] [address] Performed By: #### 2 4321-2, , #### [facility] CLIA [id number] [address] MCH (RBC) [Entitic mass] 26.6 pg Normal 26.0-34.0 [facility] Comment on above: Order Comment: Speci men Type: BLOOD SPECIMEN Ordering Facility: [facility] Address: [address] [place] [address] Performed By: #### 2 4320-2, 12333-1, #### [facility] CLIA [id number] [address] MCHC (RBC) [Mass/Vol] 30.6 g/dL Normal 30.5-36.0 [facility] Comment on above: Order Comment: Speci men Type: BLOOD SPECIMEN Ordering Facility: [facility] Address: [address] [place] [address] Performed By: #### 2 4320-2, , #### [facility] CLIA [id number] [address] MCV (RBC) [Entitic vol] 87.0 fL Normal 80.0-100.0 [facility] Comment on above: Order Comment: Speci men Type: BLOOD SPECIMEN Ordering Facility: [facility] Address: [address] [place] [address] Performed By: #### 2 4320-2, 30643-1, #### [facility] CLIA [id number] [address] Monocytes (Bld) [#/Vol] 0.68 10*3/uL Normal <0.87 [facility] Comment on above: Order Comment: Speci men Type: BLOOD SPECIMEN Ordering Facility: [facility] Address: [address] [place] [address] Performed By: #### 2 432-2, 49533-4, #### [facility] CLIA [id number] [address] [place] [address] [place] Monocytes/100 WBC (Bld) 9.1 % Normal A [facility] Comment on above: Order Comment: Speci men Type: BLOOD SPECIMEN Ordering Facility: [facility] Address: [address] [place] [address] Performed By: #### 2 4321-2, 83502-8, #### [facility] CLIA [id number] 1 [place] [address] [place] Neutrophils (Bld) [#/Vol] 5.43 10*3/uL Normal 1.45-7.50 [facility] Comment on above: Order Comment: Speci men Type: BLOOD SPECIMEN Ordering Facility: [facility] Address: [address] [place] [address] Performed By: #### 2 4321-2, 48604-8, #### [facility] CLIA [id number] [address] [place] Neutrophils/100 WBC (Bld) 72.9 % Normal [facility] Comment on above: Order Comment: Speci men Type: BLOOD SPECIMEN Ordering Facility: [facility] Address: [address] [place] [address] Performed By: #### 2 4321-2, 92364-0, #### [facility] CLIA [id number] [address] [place] [address] [place] Nucleated RBC (Bld) [#/Vol] 10*3/uL Normal <0.01 [facility] Comment on above: Order Comment: Speci men Type: BLOOD SPECIMEN Ordering Facility: [facility] Address: [address] [place] [address] Performed By: #### 2 4321-2, 81209-6, #### [facility] CLIA [id number] [address] [place] Nucleated RBC/100 WBC (Bld) [Ratio] 0.0 /100 WBC Normal [facility] Comment on above: Order Comment: Speci men Type: BLOOD SPECIMEN Ordering Facility: [facility] Address: [address] [place] [address] Performed By: #### 2 4321-2, 19477-9, #### [facility] CLIA [id number] [address] [place] Platelet mean volume (Bld) [Entitic vol] 9.5 fL Normal 9.0-12.7 [facility] Comment on above: Order Comment: Speci men Type: BLOOD SPECIMEN Ordering Facility: [facility] Address: [address] [place] [address] Performed By: #### 2 4321-2, 36781-7, #### [facility] CLIA [id number] [address] [place] Platelets (Bld) [#/Vol] 329 10*3/uL Normal 150-400 [facility] Comment on above: Order Comment: Speci men Type: BLOOD SPECIMEN Ordering Facility: [facility] Address: [address] [place] [address] Performed By: #### 2 4321-2, 99038-0, #### [facility] CLIA [id number] [address] [place] RBC (Bld) [#/Vol] 4.32 10*6/uL Normal 3.90-5.20 [facility] Comment on above: Order Comment: Speci men Type: BLOOD SPECIMEN Ordering Facility: [facility] Address: [address] [place] [address] Performed By: #### 2 4321-2, 71500-3, #### [facility] CLIA [id number] 1 [place] [address] [place] WBC (Bld) [#/Vol] 7.45 10*3/uL Normal 3.70-11.00 [facility] Comment on above: Order Comment: Speci men Type: BLOOD SPECIMEN Ordering Facility: [facility] Address: [address] [place] [address] Performed By: #### 2 4321-2, 08498-5, 97031-1 #### [facility] [place] [id number] [address] OF [facility] CONSULTon 06-11-2024 CONSULT HNO ID: [id number] Author: JENNY WALLACE MD Service: Neurology General [...] cannot ambulate. Pre-admission Pre-morbid mRS: Premorbid Modified [place] Score: 0 - No symptoms at all [...] Vital Signs: (more content not included)... Normal [facility] CONSULT HNO ID: [id number] Author: TOÑO MANZO MD Service: Urology Author [...] lb 8.9 oz) Height: 162.6 cm (5' 4) General: Alert, in no acute distress : no flank pain, no SP tenderness/fullness, external catheter draining clear yellow urine The sensitive examination was discussed with the Patient or Patient's Authorized [employer]. As applicable, any other physician, advance practice provider, medical student, or other health professional student that will be observing or involved in the sensitive examination for educational or training purposes was discussed with the Patient or Authorized [employer]. The Patient or Authorized [employer] has agreed to proceed with the sensitive [...] lesion. Consider follow-up renal CT/MR for characterization. Womens Volleyball Coach: DEVEN Transcribe D (more content not included)... Normal [facility] CONSULT PROGon 06-11-2024 CONSULT PROG HNO ID: [id number] Author: CARL PERSAUD RPh Service: Pharmacy Author Type: Pharmacist Type: Consult Progress Note Filed: 06/11/2024 13:52 Note Text: PHARMACY ANTICOAGULATION CONSULT Patient Name:Binu Castillo Admission Date: 06/10/2024 Date: 06/11/2024 Time: 1:51 PM Consult for warfarin dosing per pharmacy has been discontinued. Pharmacy will sign off. Please place order for warfarin dosing per pharmacy if pharmacy is to resume warfarin dosing. Thank you for allowing us to participate in the care of this patient. Carl Persaud RPh [facility] CONSULT PROG HNO ID: [id number] Author: CARL PERSAUD RPh Service: Pharmacy Author [...] on 06/10/24. Patient was being managed by [facility] but was recently released due to [...] be monitored daily. Recommended post discharge dosing: ASHER Thank you for allowing me to participate [...] education: No Signature: Carl Persaud RPh Normal [facility] CT ABD/PEL W IVCONon 024 CT ABD/PEL W IVCON * * *Final Report* * * DATE OF EXAM: Jun 11 2024 3:07AM [facility] 0530 - CT ABD/PEL W IVCON [...] to bilateral greater trochanters, similar to prior. Sustainable Agriculture Specialist (topogram) images: No additional findings. IMPRESSION: 1. Mild bilateral hydroureteronephrosis to the pelvic brim without evidence of ureterolithiasis. 2. Indeterminate left renal lesion. Consider follow-up renal CT/MR for characterization. Womens Volleyball Coach: [facility] Transcribe Date/Time: Jun 11 2024 3:09A Dictated by : RAF AYALA MD This examination was interpreted and the report reviewed and electronically signed by: RAF AYALA MD on Jun 11 2024 3:40AM EST [id number] Normal [facility] CT BRAIN WO IVCONon 06-11-20 CT BRAIN WO IVCON * * *Final Report* * * DATE OF EXAM: Jun 11 2024 3:05AM [facility] 0504 - CT BRAIN WO IVCON [...] changes and small remote right occipital infarct. Womens Volleyball Coach: DEVEN Transcribe Date/Time: Jun 11 2024 3:05A Dictated by : RIN LANE MD This examination was interpreted and the report reviewed and electronically signed by: RIN LANE MD on Jun 11 2024 3:16AM EST [id number] Normal [facility] ECHO WITH AGITATED SALINE CO NTRASTon 06-11-2024 ECHO WITH AGITATED SALINE CONTRAST Echocardiography Report: Transthoracic Echo [facility] Date of service: 06/11/2024 11:20:46 [facility] Ordering physician: DON EDWARDS Indication: TIA Technologist: Dinora Fields [facility] Interpreting physician: Nando Costa MD [...] * * * Final * * * [facility] : [id number] Normal [facility] ED NOTEon 06-11-2024 ED NOTE HNO ID: [id number] Author: GISSELL CARRINGTON RN Service: Emergency Medicine Author Type: Registered Nurse Type: ED Notes Filed: 06/11/2024 05:58 Note Text: Gave report to assigned RN on 2099. Assigned RN is ready to receive patient at this time. Normal [facility] ED NOTE HNO ID: [id number] Author: GISSELL CARRINGTON RN Service: Emergency Medicine Author Type: Registered Nurse Type: ED Notes Filed: 06/11/2024 00:40 Note Text: Dr. Mendoza at bedside placing a US IV at this time. Normal [facility] HIGH SENSITIVITY TROPONIN T (SECOND)on 06-11-2024 Troponin T.cardiac High sensitivity method [Mass/Vol] 14 ng/L High <12 [facility] Comment on above: Order Comment: Speci men Type: BLOOD SPECIMEN Ordering Facility: [facility] Address: [address] [id number] Performed By: #### 2 4321-2, 33592-4, 67781-0 #### [facility] CLIA [id number] [address] HIGH SENSITIVITY TROPONIN T (THIRD) 3 HRS AFTER INITIALon 06-11-2024 Troponin T.cardiac High sensitivity method [Mass/Vol] 14 ng/L High <12 [facility] Comment on above: Order Comment: Speci men Type: BLOOD SPECIMEN Ordering Facility: [facility] Address: [address] [id number] Performed By: #### 2 4321-2, 64313-1, 76166-3 #### [facility] CLIA [id number] [address] HISTORY PHYSICALon HISTORY PHYSICAL HNO ID: [id number] Author: DON EDWARDS DO Service: Hospital Medicine Author Type: Physician Type: H&P Filed: 06/11/2024 14:14 Note Text: DEPARTMENT OF HOSPITAL MEDICINE HISTORY AND PHYSICAL EXAM SERVICE DATE: 06/11/2024 SERVICE TIME: 10:25 AM Primary Care Physician: Jared Evans MD, MD NIGHT AND WEEKEND COVERAGE: [place] COVERAGE: From 7am - 7pm, please call [phone] After 7pm, please call cross cover pager #[phone] Subjective CHIEF COMPLAINT: dizziness with vomiting, slurred [...] Hypothyroidism PAST SURGICAL HISTORY Procedure Laterality Date DANAZ, DIAG AND/OR THERAPEUTIC NASAL ENDOS,DIAG,UNI/ BILATERAL TOTAL [...] (Src) 97.6 (Oral) Resp 20 Ht 5' 4 (1.63m) Wt 152 lb 8.9 oz (69.2kg) [...] Drains, and Airways Line Duration Peripheral 06/11/24 [facility] Left Antecubital 20 Gauge <1 day Drain Duration External Collection Device 06/11/24 0250 [facility] <1 day Reviewed lines and needs to be continued: REASONS: Telemetry DATA: Diagnostic tests reviewed for today's visit: Most recent lab (more content not included)... Normal [facility] MRA BRAIN WO IVCONon 024 MRA BRAIN WO IVCON * * *Final Report* * * DATE OF EXAM: Jun 11 2024 3:52PM [facility] 0272 - MRA BRAIN WO IVCON / PROCEDURE REASON: Neuro deficit, acute, stroke suspected * * * * Physician Interpretation * * * * EXAMINATION: MRI BRAIN WO IVCON, MRA BRAIN WO IVCON, MRA CAROTID WO IVCON CLINICAL HISTORY: Neuro deficit, acute, stroke suspected TECHNIQUE: Routine noncontrast MRI brain protocol including diffusion images. Intracranial and carotid 3D spdz-tf-oafoqs MRA. 3D maximum intensity projection images were [...] Patency: Bilateral Dominance: Left INTRACRANIAL MRA: The [place] is patent without significant stenosis. 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 IMPRESSION: Motion degraded study. 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 No hemorrhagic transformation or significant mass effect. Unremarkable carotid MRA. 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 Womens Volleyball Coach: [facility] Transcribe Date/Time: Jun 11 2024 3:54P Dictated by : ESTHER MCKEON MD This examination was interpreted and the report reviewed and electronically signed by: ESTHER MCKEON MD on Jun 11 2024 4:13PM EST [id number] Normal [facility] MRA CAROTID WO IVCONon 06-11 MRA CAROTID WO IVCON * * *Final Report* * * DATE OF EXAM: Jun 11 2024 3:52PM [facility] 0275 - MRA CAROTID WO IVCON / PROCEDURE REASON: Neuro deficit, acute, stroke suspected * * * * Physician Interpretation * * * * EXAMINATION: MRI BRAIN WO IVCON, MRA BRAIN WO IVCON, MRA CAROTID WO IVCON CLINICAL HISTORY: Neuro deficit, acute, stroke suspected TECHNIQUE: Routine noncontrast MRI brain protocol including diffusion images. Intracranial and carotid 3D kstq-fk-mkckld MRA. 3D maximum intensity projection images were [...] Patency: Bilateral Dominance: Left INTRACRANIAL MRA: The [place] point of [place] is patent without significant stenosis. 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 IMPRESSION: Motion degraded study. 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 No hemorrhagic transformation or significant mass effect. Unremarkable carotid MRA. 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 Transcribe Date/Time: Jun 11 2024 3:54P Dictated by : ESTHER MCKEON MD This examination was interpreted and the report reviewed and electronically signed by: ESTHER MCKEON MD on Jun 11 2024 4:13PM EST [id number] Normal [facility] MRI BRAIN WO IVCONon 024 MRI BRAIN WO IVCON * * *Final Report* * * DATE OF EXAM: Jun 11 2024 3:52PM [facility] 0294 - MRI BRAIN WO IVCON / PROCEDURE REASON: stroke * * * * Physician Interpretation * * * * EXAMINATION: MRI BRAIN WO IVCON, MRA BRAIN WO IVCON, MRA CAROTID WO IVCON CLINICAL HISTORY: Neuro deficit, acute, stroke suspected TECHNIQUE: Routine noncontrast MRI brain protocol including diffusion images. Intracranial and carotid 3D spjv-aq-ptatlo MRA. 3D maximum intensity projection images were [...] Patency: Bilateral Dominance: Left INTRACRANIAL MRA: The clark[place] point of [place] is patent without significant stenosis. 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 IMPRESSION: Motion degraded study. 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 No hemorrhagic transformation or significant mass effect. Unremarkable carotid MRA. 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 Womens Volleyball Coach: DEVEN Transcribe Date/Time: Jun 11 2024 3:54P Dictated by : ESTHER MCKEON MD This examination was interpreted and the report reviewed and electronically signed by: ESTHER MCKEON MD on Jun 11 2024 4:13PM EST [id number] Normal [facility] PT panel Coag (PPP)on 2023 INR Coag (PPP) [Relative time] 1.2 {INR} Normal 0.9-1.3 [facility] Comment on above: Order Comment: Speci men Type: BLOOD SPECIMEN Ordering Facility: [facility] Address: [address] [place] [address] Result Comment: Mayra min K Antagonist (VKA) Therapeutic Range: INR 2 to 3 (Target INR of 2.5) Note: For patients treated with VKA drugs, such as warfarin, the [place] [employer] 2012 Guideline recommends [...] Chest 2012, 141:7S-47S Daren HOYT, et al. [facility] 2017, 70: 252-289 Performed By: #### 2 4321-2, 85381-5, #### [facility] CLIA [id number] [address] [place] PT Coag (PPP) [Time] 12.6 s Normal 9.7-13.0 [facility] Comment on above: Order Comment: Speci men Type: BLOOD SPECIMEN Ordering Facility: [facility] Address: [address] [place] [address] Performed By: #### 2 4321-2, 16015-6, #### [facility] CLIA [id number] [address] [place] THERAPY NTon 06-11-2024 THERAPY NT HNO ID: [id number] Author: BASILIA MAGALLANES CCC-MAINTENANCE SERVICE TECHNICIAN Service: Speech/Swallow Author Type: Speech Language Pathologist Type: Therapy (PT/OT/Speech/Resp) Filed: 06/11/2024 09:44 Note Text: Speech Therapy Clinical Swallow Evaluation SERVICE DATE: 06/11/2024 SERVICE TIME: 915 to 930 ROOM: [place] [address] IMPRESSION: Functional oropharyngeal phases of swallowing: without [...] Skilled Need Interventions Provided: Clinical Swallow Evaluation (83732) $ Clinical Swallow Evaluation (44483) Billed Units: 1 unit Training and Education [...] for this therapy evaluation/treatment. SIGNATURE: Basilia Magallanes CCC-MAINTENANCE SERVICE TECHNICIAN PATIENT NAME: Mel Castillo DATE: June 11, 2024 TIME: 9:39 AM Normal [facility] THERAPY NT HNO ID: [id number] Author: MEHREEN MANCERA, PT Service: Physical Therapy Author Type: Physical Therapist Type: Therapy (PT/OT/Speech/Resp) Filed: 06/11/2024 09:27 Note Text: Physical Therapy Evaluation Summary SERVICE DATE: 06/11/2024 SERVICE TIME: 804 to 841 ROOM: [place] [address] PT 6 Clicks Score: 18 DISCHARGE RECOMMENDATIONS [...] and signs-other TREATMENT INTERVENTIONS Evaluation, Canalith Repositioning (41053) Skilled Treatment Time (minutes): 37 $ Evaluation-Moderate (30907) Billed Units: 1 unit $ Canalith Repositioning (90267) Billed Units: 1 unit Repositioning maneuver for [...] postion. L torsional upbeating nystagmus (very brisk) [place], Right: Neg Horizontal Canals, Left: Pt with signs of L posterior canal BPPV in this postion Horizontal Canals, Right: neg GOALS Transfer Sit to/from Stand with: Supervision Ambulate with: Supervision Distance: 100' Device: Wheeled Walker Goal: Pt will not have c/o vertigo or signs of nystagmus with position testing Rehab Potential: Good PLAN PT Frequency: 3 Times (more content not included)... Normal [facility] Urinalysis complete panel (U )on 06-11-2024 Bilirubin Ql (U) Negative Normal Negative [facility] Comment on above: Order Comment: Speci men Type: URINE SPECIMENOrdering Facility: [facility] Address: [address] [place] [address] Performed By: #### 2 4356-8 ####[facility] [id number] [address] [place] Clarity (Unsp spec) Clear Normal Clear [facility] Comment on above: Order Comment: Speci men Type: URINE SPECIMENOrdering Facility: [facility] Address: [address] [place] [address] Performed By: #### 2 4356-8 ####[facility] [id number] [address] [place] Color (U) Light Yellow Normal yellow [facility] Comment on above: Order Comment: Speci men Type: URINE SPECIMENOrdering Facility: [facility] Address: [address] [place] [address] Performed By: #### 2 4356-8 ####[facility] [id number] [address] [place] Glucose Test strip (U) [Mass/Vol] Negative Normal Trace, Negative [facility] Comment on above: Order Comment: Speci men Type: URINE SPECIMENOrdering Facility: [facility] Address: [address] [place] [address] Performed By: #### 2 4356-8 ####[facility] [id number] [address] [place] Hemoglobin Ql (U) Trace Normal Negative, Trace [facility] Comment on above: Order Comment: Speci men Type: URINE SPECIMENOrdering Facility: [facility] Address: [address] [place] [address] Performed By: #### 2 4356-8 ####[facility] [id number] [address] OF [facility] Ketones Ql (U) Negative Normal Negative, Trace [facility] Comment on above: Order Comment: Speci men Type: URINE SPECIMENOrdering Facility: [facility] Address: [address] [place] [address] Performed By: #### 2 4356-8 ####[facility] [id number] [address] OF [facility] Leukocyte esterase Test strip Ql (U) Negative Normal Negative, 25 Jose Luis/uL [facility] Comment on above: Order Comment: Speci men Type: URINE SPECIMENOrdering Facility: [facility] Address: [address] [place] [address] Performed By: #### 2 4356-8 ####[facility] [id number] [address] STATES OF [facility] Nitrite Ql (U) Negative Normal Negative [facility] Comment on above: Order Comment: Speci men Type: URINE SPECIMENOrdering Facility: [facility] Address: [address] [place] [address] Performed By: #### 2 4356-8 ####[facility] [id number] [address] [place] pH (U) [pH] High 5.0-8.0 [facility] Comment on above: Order Comment: Speci men Type: URINE SPECIMENOrdering Facility: [facility] Address: [address] [place] [address] Performed By: #### 2 4356-8 ####[facility]IA [id number] [address] [place] Protein (U) [Mass/Vol] 1+ Abnormal Trace , Negative [facility] Comment on above: Order Comment: Speci men Type: URINE SPECIMENOrdering Facility: [facility] Address: [address] [place] [address] Performed By: #### 2 4356-8 ####[facility]IA [id number] [address] STATES [facility] RBC LM.HPF (Urine sed) [#/Area] 6-10 /HPF Abnormal 0-3 /HPF [facility] Comment on above: Order Comment: Speci men Type: URINE SPECIMENOrdering Facility: [facility] Address: [address] [place] [address] Performed By: #### 2 4356-8 ####[facility]ORYCLIA [id number] [address] STATES [facility] Specific gravity (U) [Rel density] 1.039 High 1.005-1.030 [facility] Comment on above: Order Comment: Speci men Type: URINE SPECIMENOrdering Facility: [facility] Address: [address] [place] [address] Performed By: #### 2 4356-8 ####[facility]ORYCLIA [id number] [address] Urobilinogen Ql (U) Normal Normal Normal [facility] Comment on above: Order Comment: Speci men Type: URINE SPECIMENOrdering Facility: [facility] Address: [address] [place] [address] Performed By: #### 2 4356-8 ####[facility]ORYCLIA [id number] [address] STATES [facility] WBC LM.HPF (Urine sed) [#/Area] 0-5 /HPF Normal 0-5 /HPF [facility] Comment on above: Order Comment: Speci men Type: URINE SPECIMENOrdering Facility: [facility] Address: [address] [place] [address] Performed By: #### 2 4356-8 ####[facility]ORYCLIA [id number] [address] aPTT PPPon 06-11-2024 aPTT Coag (PPP) [Time] 28.2 s Normal 23.0-32.4 [facility] Comment on above: Order Comment: Speci men Type: BLOOD SPECIMENOrdering Facility: [facility] Address: [address] [place] [address] Performed By: #### 1 4979-9 ####[facility]ORYCLIA [id number] [address] aPTT Coag (PPP) [Time] 28.9 s Normal 23.0-32.4 [facility] Comment on above: Order Comment: Speci men Type: BLOOD SPECIMEN Ordering Facility: [facility] Address: [address] [place] [address] Performed By: #### 2 4321-2, 32231-9, #### [facility] CLIA [id number] [address] CBC W Auto Differential pane l (Bld)on 06-10-2024 Basophils (Bld) [#/Vol] 0.04 10*3/uL Normal <0.11 [facility] Comment on above: Order Comment: Speci men Type: BLOOD SPECIMEN Ordering Facility: [facility] Address: [address] [place] [address] Performed By: #### 2 4321-2, 55254-7, #### [facility] CLIA [id number] [address] Basophils/100 WBC (Bld) 0.7 % Normal A [facility] Comment on above: Order Comment: Speci men Type: BLOOD SPECIMEN Ordering Facility: [facility] Address: [address] [place] [address] Performed By: #### 2 4321-2, 56332-5, #### [facility] CLIA [id number] [address] Differential cell count method Nom (Bld) Auto Normal [facility] Comment on above: Order Comment: Speci men Type: BLOOD SPECIMEN Ordering Facility: [facility] Address: [address] [place] [address] Performed By: #### 2 4321-2, 14730-4, #### [facility] CLIA [id number] [address] [place] Eosinophils (Bld) [#/Vol] 10*3/uL Normal <0.46 [facility] Comment on above: Order Comment: Speci men Type: BLOOD SPECIMEN Ordering Facility: [facility] Address: [address] [place] [address] Performed By: #### 2 1-2, 02412-1, #### [facility] CLIA [id number] [address] [place] Eosinophils/100 WBC (Bld) 0.2 % Normal [facility] Comment on above: Order Comment: Speci men Type: BLOOD SPECIMEN Ordering Facility: [facility] Address: [address] [place] [address] Performed By: #### 2 4320-2, 42982-1, #### [facility] CLIA [id number] [address] [place] Erythrocyte distribution width (RBC) [Ratio] 15.6 % High 11.5-15.0 [facility] Comment on above: Order Comment: Speci men Type: BLOOD SPECIMEN Ordering Facility: [facility] Address: [address] [place] [address] Performed By: #### 2 4320-2, 80440-1, #### [facility] CLIA [id number] [address] [place] Hematocrit (Bld) [Volume fraction] 37.5 % Normal 36.0-46.0 [facility] Comment on above: Order Comment: Speci men Type: BLOOD SPECIMEN Ordering Facility: [facility] Address: [address] [place] [address] Performed By: #### 2 1-2, 49136-2, #### [facility] CLIA [id number] [address] [place] Hemoglobin (Bld) [Mass/Vol] 11.4 g/dL Low 11.5-15.5 [facility] Comment on above: Order Comment: Speci men Type: BLOOD SPECIMEN Ordering Facility: [facility] Address: [address] [place] [address] Performed By: #### 2 4321-2, 76800-6, #### [facility] CLIA [id number] 1 [place] [address] [place] Immature granulocytes (Bld) [#/Vol] 10*3/uL Normal <0.10 [facility] Comment on above: Order Comment: Speci men Type: BLOOD SPECIMEN Ordering Facility: [facility] Address: [address] [place] [address] Performed By: #### 2 1-2, 66133-3, #### [facility] CLIA [id number] [address] [place] Immature granulocytes/100 WBC (Bld) 0.4 % Normal [facility] Comment on above: Order Comment: Speci men Type: BLOOD SPECIMEN Ordering Facility: [facility] Address: [address] [place] [address] Performed By: #### 2 4320-2, 51128-0, #### [facility] CLIA [id number] [address] [place] Lymphocytes (Bld) [#/Vol] 0.61 10*3/uL Low 1.00-4.00 [facility] Comment on above: Order Comment: Speci men Type: BLOOD SPECIMEN Ordering Facility: [facility] Address: [address] [place] [address] Performed By: #### 2 1-2, 15515-3, #### [facility] CLIA [id number] [address] [place] Lymphocytes/100 WBC (Bld) 10.8 % Normal [facility] Comment on above: Order Comment: Speci men Type: BLOOD SPECIMEN Ordering Facility: [facility] Address: [address] [place] [address] Performed By: #### 2 4321-2, 85648-8, #### [facility] CLIA [id number] [address] MCH (RBC) [Entitic mass] 26.2 pg Normal 26.0-34.0 [facility] Comment on above: Order Comment: Speci men Type: BLOOD SPECIMEN Ordering Facility: [facility] Address: [address] [place] [address] Performed By: #### 2 1-2, 38388-9, #### [facility] CLIA [id number] [address] MCHC (RBC) [Mass/Vol] 30.4 g/dL Low 30.5-36.0 [facility] Comment on above: Order Comment: Speci men Type: BLOOD SPECIMEN Ordering Facility: [facility] Address: [address] [place] [address] Performed By: #### 2 4320-2, 14112-4, #### [facility] CLIA [id number] [address] MCV (RBC) [Entitic vol] 86.2 fL Normal 80.0-100.0 [facility] Comment on above: Order Comment: Speci men Type: BLOOD SPECIMEN Ordering Facility: [facility] Address: [address] [place] [address] Performed By: #### 2 4320-2, 29715-1, #### [facility] CLIA [id number] [address] Monocytes (Bld) [#/Vol] 0.21 10*3/uL Normal <0.87 [facility] Comment on above: Order Comment: Speci men Type: BLOOD SPECIMEN Ordering Facility: [facility] Address: [address] [place] [address] Performed By: #### 2 4321-2, 71039-3, #### [facility] CLIA [id number] 1 [place] [address] [place] Monocytes/100 WBC (Bld) 3.7 % Normal [facility] Comment on above: Order Comment: Speci men Type: BLOOD SPECIMEN Ordering Facility: [facility] Address: [address] [place] [address] Performed By: #### 2 4321-2, 88075-4, #### [facility] CLIA [id number] 1 [place] [address] [place] Neutrophils (Bld) [#/Vol] 4.78 10*3/uL Normal 1.45-7.50 [facility] Comment on above: Order Comment: Speci men Type: BLOOD SPECIMEN Ordering Facility: [facility] Address: [address] [place] [address] Performed By: #### 2 4321-2, 83291-9, #### [facility] CLIA [id number] [address] [place] Neutrophils/100 WBC (Bld) 84.2 % Normal [facility] Comment on above: Order Comment: Speci men Type: BLOOD SPECIMEN Ordering Facility: [facility] Address: [address] [place] [address] Performed By: #### 2 4321-2, 13822-3, #### [facility] CLIA [id number] 1 [place] [address] [place] Nucleated RBC (Bld) [#/Vol] 10*3/uL Normal <0.01 [facility] Comment on above: Order Comment: Speci men Type: BLOOD SPECIMEN Ordering Facility: [facility] Address: [address] [place] [address] Performed By: #### 2 4321-2, 65410-9, #### [facility] CLIA [id number] 1 [place] [address] [place] Nucleated RBC/100 WBC (Bld) [Ratio] 0.0 /100 WBC Normal [facility] Comment on above: Order Comment: Speci men Type: BLOOD SPECIMEN Ordering Facility: [facility] Address: [address] [place] [address] Performed By: #### 2 4321-2, 64671-4, #### [facility] CLIA [id number] [address] [place] Platelet mean volume (Bld) [Entitic vol] 9.4 fL Normal 9.0-12.7 [facility] Comment on above: Order Comment: Speci men Type: BLOOD SPECIMEN Ordering Facility: [facility] Address: [address] [place] [address] Performed By: #### 2 4321-2, 20758-9, #### [facility] CLIA [id number] [address] [place] Platelets (Bld) [#/Vol] 330 10*3/uL Normal 150-400 [facility] Comment on above: Order Comment: Speci men Type: BLOOD SPECIMEN Ordering Facility: [facility] Address: [address] [place] [address] Performed By: #### 2 4321-2, 84513-5, #### [facility] CLIA [id number] 1 [place] [address] [place] RBC (Bld) [#/Vol] 4.35 10*6/uL Normal 3.90-5.20 [facility] Comment on above: Order Comment: Speci men Type: BLOOD SPECIMEN Ordering Facility: [facility] Address: [address] [place] [address] Performed By: #### 2 4321-2, 74469-8, #### [facility] CLIA [id number] 1 [place] [address] [place] WBC (Bld) [#/Vol] 5.67 10*3/uL Normal 3.70-11.00 [facility] Comment on above: Order Comment: Speci men Type: BLOOD SPECIMEN Ordering Facility: [facility] Address: [address] [place] [address] Performed By: #### 2 4321-2, 56471-1, 61502-2 #### [facility] CLIA [id number] [address] Comprehensive metabolic 2000 panelon 06-10-2024 Albumin [Mass/Vol] 4.2 g/dL Normal 3.9-4.9 [facility] Comment on above: Order Comment: Speci men Type: BLOOD SPECIMENOrdering Facility: [facility] Address: [address] [place] [address] Performed By: #### 3 016-3, 91574-5, 302-7, 50176-7 ####[facility]IA [id number] [address] STATES OF [facility] ALP [Catalytic activity/Vol] 99 U/L Normal 34-123 [facility] Comment on above: Order Comment: Speci men Type: BLOOD SPECIMENOrdering Facility: [facility] Address: [address] [place] [address] Performed By: #### 3 016-3, 08895-9, 3023-7, 83412-2 ####[facility]ORYCLIA [id number] [address] OF [facility] ALT With P-5'-P [Catalytic activity/Vol] 8 U/L Normal 7-38 [facility] Comment on above: Order Comment: Speci men Type: BLOOD SPECIMENOrdering Facility: [facility] Address: [address] [place] [address] Performed By: #### 3 016-3, 95007-7, 302-7, 95035-3 ####[facility]ORYCLIA [id number] [place] [id number] [place] [facility] Anion gap [Moles/Vol] 12 mmol/L Normal 8-15 [facility] Comment on above: Order Comment: Speci men Type: BLOOD SPECIMENOrdering Facility: [facility] Address: [address] [place] [address] Performed By: #### 3 016-3, 97843-8, 302-7, 04661-6 ####[facility]IA [id number] [place] [address] [place] AST With P-5'-P [Catalytic activity/Vol] 12 U/L Low 13-35 [facility] Comment on above: Order Comment: Speci men Type: BLOOD SPECIMENOrdering Facility: [facility] Address: [address] [place] [address] Performed By: #### 3 016-3, 00582-1, 3024-01, 34364-9 ####[facility]ORYCLIA [id number] [place] [address] [place] Bilirubin [Mass/Vol] 0.4 mg/dL Normal 0.2-1.3 [facility] Comment on above: Order Comment: Speci men Type: BLOOD SPECIMENOrdering Facility: [facility] Address: [address] [place] [address] Performed By: #### 3 016-3, 40263-0, 3024-01, ####[facility] [id number] [place] [address] [place] Calcium [Mass/Vol] 9.5 mg/dL Normal 8.5-10.2 [facility] Comment on above: Order Comment: Speci men Type: BLOOD SPECIMENOrdering Facility: [facility] Address: [address] [place] [address] Performed By: #### 3 016-3, 36242-9, 3024-01, ####[facility]ORYCLIA [id number] [place] [address] [place] Chloride [Moles/Vol] 101 mmol/L Normal 98-107 [facility] Comment on above: Order Comment: Speci men Type: BLOOD SPECIMENOrdering Facility: [facility] Address: [address] [place] [address] Performed By: #### 3 016-3, 99633-9, 3024-01, 05507-9 ####[facility]ORYCLIA [id number] [address] [place] CO2 [Moles/Vol] 23 mmol/L Normal 22-30 [facility] Comment on above: Order Comment: Rhina mason Type: BLOOD SPECIMENOrdering Facility: [facility] Address: [address] [place] [address] Performed By: #### 3 016-3, 13495-7, 3024-7, 99451-5 ####[facility]ORYCLIA [id number] [address] [place] Creatinine [Mass/Vol] 0.87 mg/dL Normal 0.58-0.96 [facility] Comment on above: Order Comment: Rhina mason Type: BLOOD SPECIMENOrdering Facility: [facility] Address: [address] [place] [address] Performed By: #### 3 016-3, 83320-3, 3024-7, 88226-7 ####[facility]IA [id number] [address] Creatinine and Glomerular filtration rate.predicted panel (S/P/Bld) 66 mL/min/1.73m??? Normal >=60 [facility] Comment on above: Order Comment: Rhina mason Type: BLOOD SPECIMENOrdering Facility: [facility] Address: [address] [place] [address] Result Comment: Isa mated Glomerular Filtration Rate [...] actual GFR. Performed By: #### 3 016-3, 44535-0, 3024-7, 95917-1 ####[facility]ORYCLIA [id number] [address] [place] Glucose [Mass/Vol] 157 mg/dL High 74-99 [facility] Comment on above: Order Comment: Rhina mason Type: BLOOD SPECIMENOrdering Facility: [facility] Address: [address] [place] [place] [id number] Result Comment: The [place] [employer] (ADA) provides guidance for cutoff [...] Standards of Medical Care in Diabetes 2016, [place] [employer]. Diabetes Care. 2016.39(Suppl 1). Performed By: #### 3 016-3, 94467-7, 3023-7, 18003-6 ####[facility]ORYCLIA [id number] [place] [address] [place] Potassium [Moles/Vol] 4.3 mmol/L Normal 3.7-5.1 [facility] Comment on above: Order Comment: Speci men Type: BLOOD SPECIMENOrdering Facility: [facility] Address: [address] [place] [address] Performed By: #### 3 016-3, 70093-0, 7, 80271-6 ####[facility]ORYCLIA [id number] [place] [address] [place] Protein [Mass/Vol] 7.1 g/dL Normal 6.3-8.0 [facility] Comment on above: Order Comment: Speci men Type: BLOOD SPECIMENOrdering Facility: [facility] Address: [address] [place] [place] [id number] Performed By: #### 3 016-3, 22465-2, 7, 48666-9 ####[facility]ORYCLIA [id number] [place] [address] [place] Sodium [Moles/Vol] 136 mmol/L Normal 136-144 [facility] Comment on above: Order Comment: Speci men Type: BLOOD SPECIMENOrdering Facility: [facility] Address: [address] [place], [place] [address] Performed By: #### 3 016-3, 35478-5, 3024-7, 54877-7 ####[facility]ORYCLIA [id number] [place] [id number] [place] OF [facility] Urea nitrogen [Mass/Vol] 14 mg/dL Normal 7-21 [facility] Comment on above: Order Comment: Speci men Type: BLOOD SPECIMENOrdering Facility: [facility] Address: [address] [place], [place] [address] Performed By: #### 3 016-3, 78360-7, 3024-7, 30902-9 ####[facility]ORYCLIA [id number] [address] OF [facility] ECG COMPLETEon 06-10-2024 ECG COMPLETE Ventricular Rate : 6 4 BPM QRS Duration : 90 ms Q-T Interval : 424 ms QTC Calculation(Bazett) : 437 ms Calculated R [place] : 56 degrees Calculated T [place] : 20 degrees ATRIAL FIBRILLATION ABNORMAL ECG NO PREVIOUS ECGS AVAILABLE Confirmed by SAKINA MELLO MD ([id number]) on 12/07/2024 10:44:28 PM NAME : MEL GUADARRAMA PID : [id number] : 1940 Gender : Female Race : ORD : [id number] Procedure Date : Jun 10 2024 23:35:14 Edit Date : Dec 07 2024 22:44:32 Diagnosis: ATRIAL FIBRILLATION ABNORMAL ECG NO PREVIOUS ECGS AVAILABLE Confirmed by SAKINA MELLO MD ([id number]) on 12/07/2024 10:44:28 PM Test Reason : Chest Pain Location : 4 : [facility] EM Overread By : SAKINA MELLO MD Edited By : SAKINA MELLO MD Referred By : , Acquired by : REGAN RODRIGES [facility] ED NOTEon 06-10-2024 ED NOTE HNO ID: [id number] Author: DAMARIS HERNANDEZ RN Service: ? Author Type: Registered Nurse Type: ED Notes Filed: 06/10/2024 23:06 Note Text: Bed: 36-ED Expected date: Expected time: Means of arrival: Comments: RAMESH Barrett [facility] ED PROV NOTEon 06-10-2024 ED PROV NOTE HNO ID: [id number] Author: THOMAS SERNA MD Service: Emergency Medicine [...] nausea vomiting. THOMAS SERNA 06/11/24 0519 Normal [facility] ED PROV NOTE HNO ID: [id number] Author: THOMAS SERNA MD Service: Emergency Medicine [...] Labs Ord (more content not included)... Normal [facility] HIGH SENSITIVITY TROPONIN T (INITIAL)on 06-10-2024 Troponin T.cardiac High sensitivity method [Mass/Vol] 14 ng/L High <12 [facility] Comment on above: Order Comment: Rhina mason Type: BLOOD SPECIMENOrdering Facility: [facility] Address: [address] [place] [address] Performed By: #### L [id number] ####[facility]ORYCLIA [id number] [place] [address] [place] HbA1c (Bld)on 06-10-2024 Average glucose Estimated from glycated hemoglobin (Bld) [Mass/Vol] 120 mg/dL Normal [facility] Comment on above: Order Comment: Rhina mason Type: BLOOD SPECIMEN Ordering Facility: [facility] Address: [address] [place] [place] [phone] Result Comment: eAG: (Estimated average glucose) is a calculated value from HgbA1c and is containers sales representative of the average blood glucose level in the last 2-3 month period. Performed By: #### 2 4321-2, 69410-3, #### [facility] CLIA [id number] [address] [place] HbA1c (Bld) [Mass fraction] 5.8 % High 4.3-5.6 [facility] Comment on above: Order Comment: Rhina mason Type: BLOOD SPECIMEN Ordering Facility: [facility] Address: [address] [place] [address] Result Comment: [facility] Diabetes Association guidelines indicate that patients with HgbA1c in the range 5.7-6.4% are at increased risk for development of diabetes, and intervention by lifestyle modification may be beneficial. HgbA1c greater or equal to 6.5% is considered diagnostic of diabetes. Performed By: #### 2 4321-2, 90082-4, #### [facility] CLIA [id number] [address] [place] Lipid 1996 panelon 4 Cholesterol [Mass/Vol] 227 mg/dL High <200 [facility] Comment on above: Order Comment: Rhina mason Type: BLOOD SPECIMENOrdering Facility: [facility] Address: [address] [place] [address] Result Comment: <200 mg/dL, Desirable 200-239 mg/dL, Borderline high >239 mg/dL, High Performed By: #### 3 016-3, 62907-1, 3024-7, 81985-5 ####[facility]ORYCLIA [id number] [address] [place] Cholesterol in HDL [Mass/Vol] 78 mg/dL Normal >39 [facility] Comment on above: Order Comment: Rhina mason Type: BLOOD SPECIMENOrdering Facility: [facility] Address: [address] [place] [address] Result Comment: 40-5 9 mg/dL, Acceptable >59 mg/dL, High: Negative risk factor for coronary heart disease <40 mg/dL, Low: Positive risk factor for coronary heart disease Performed By: #### 3 016-3, 01010-3, 3024-7, 63563-3 ####[facility]ATORYCLIA [id number] [place] [address] [place] [facility] Cholesterol in LDL [Mass/Vol] 139 mg/dL High <100 [facility] Comment on above: Order Comment: Speci men Type: BLOOD SPECIMENOrdering Facility: [facility] Address: [address] [place] [address] Result Comment: <100 mg/dL, Optimal 100-129 mg/dL, Near optimal/above optimal 130-159 mg/dL, Borderline high 160-189 mg/dL, High >189 mg/dL, Very high Secondary prevention optimal LDL Cholesterol levels are recommended to be < 70 mg/dL Performed By: #### 3 016-3, 35979-3, 3023-7, 56793-9 ####[facility] [id number] [address] Cholesterol in LDL/Cholesterol in HDL [Mass ratio] 1.78 {ratio} Normal <2.54 [facility] Comment on above: Order Comment: Speci men Type: BLOOD SPECIMENOrdering Facility: [facility] Address: [address] [place] [address] Result Comment: Refe rence: 1. National Cholesterol Education Program ATP III Guideline At-A-Glance Quick Desk Reference: National Heart, Lung, and Blood [place]. National Institutes of Health. 2001: NIH Publication No. 01-3305. 2. An International Atherosclerosis Society position paper: global recommendations for the management of dyslipidemia: executive summary, Atherosclerosis. 2014: 232(2):410-413. Performed By: #### 3 016-3, 10853-4, 302-7, 04719-8 ####[facility]ORYCLIA [id number] [place] [id number] [facility] Cholesterol in VLDL [Mass/Vol] 10 mg/dL Normal <30 [facility] Comment on above: Order Comment: Speci men Type: BLOOD SPECIMENOrdering Facility: [facility] Address: [address] [place] [address] Performed By: #### 3 016-3, 07707-3, 7, 55004-5 ####[facility]ORYCLIA [id number] [address] [place] Cholesterol non HDL [Mass/Vol] 149 mg/dL High <130 [facility] Comment on above: Order Comment: Speci men Type: BLOOD SPECIMENOrdering Facility: [facility] Address: [address] [place] [address] Result Comment: <130 mg/dL, Optimal 130-159 mg/dL, Near optimal/above optimal 160-189 mg/dL, Borderline high 190-219 mg/dL, High >219 mg/dL, Very high Secondary prevention optimal non HDL Cholesterol levels are recommended to be <100 mg/dL Performed By: #### 3 016-3, 74485-0, 7, 58576-8 ####[facility]ORYCLIA [id number] [address] Cholesterol.total/Pastora sterol in HDL [Mass ratio] 2.91 {ratio} Normal <5.10 [facility] Comment on above: Order Comment: Speci men Type: BLOOD SPECIMENOrdering Facility: [facility] Address: [address] [place] [address] Performed By: #### 3 016-3, 68123-4, 3024-01, 14897-1 ####[facility]ORYCLIA [id number] [address] [place] FASTING TIME Normal [facility] Comment on above: Order Comment: Speci men Type: BLOOD SPECIMENOrdering Facility: [facility] Address: [address] [place] [address] Result Comment: Unkn own Performed By: #### 3 016-3, 87035-4, 3024-01, 10769-0 ####[facility]ORYCLIA [id number] [address] [place] Triglyceride [Mass/Vol] 49 mg/dL Normal <150 [facility] Comment on above: Order Comment: Speci men Type: BLOOD SPECIMENOrdering Facility: [facility] Address: [address] [place] [address] Result Comment: <150 mg/dL, Normal 150-199 mg/dL, Borderline high 200-499 mg/dL, High >499 mg/dL, Very high Performed By: #### 3 016-3, 86917-5, 3024-7, 47333-9 ####[facility] LABORATORYCLIA [id number] [place] [address] [place] [facility] PT panel Coag (PPP)on 2023 INR Coag (PPP) [Relative time] 1.3 {INR} Normal 0.9-1.3 [facility] Comment on above: Order Comment: Rhina mason Type: BLOOD SPECIMENOrdering Facility: [facility] Address: [address] [place] [address] Result Comment: Mayra min K Antagonist (VKA) Therapeutic Range: INR 2 to 3 (Target INR of 2.5) Note: For patients treated with VKA drugs, such as warfarin, the [place] [employer] 2012 Guideline recommends [...] Chest 2012, 141:7S-47S Daren RA, et al. [facility] 2017, 70: 252-289 Performed By: #### 3 4528-0 ####[facility] LABORATORYCLIA [id number] [place] [id number] [place] PT Coag (PPP) [Time] 13.2 s High 9.7-13.0 [facility] Comment on above: Order Comment: Rhina mason Type: BLOOD SPECIMENOrdering Facility: [facility] Address: [address] [place] [id number] Performed By: #### 3 4528-0 ####[facility] LABORATORYCLIA [id number] [place] [address] [facility] T4 Free SerPl-mCncon 024 Free T4 [Mass/Vol] 1.3 ng/dL Normal 0.9-1.7 [facility] Comment on above: Order Comment: Speci men Type: BLOOD SPECIMENOrdering Facility: [facility] Address: [address] [place] [address] Performed By: #### 3 016-3, 21088-2, 3024-7, 37780-0 ####[facility] LABORATORYCLIA [id number] [address] OF [facility] TSH SerPl-aCncon 06-10-2024 TSH Qn 1.620 m[IU]/L Normal 0.270-4.200 [facility] Comment on above: Order Comment: Speci men Type: BLOOD SPECIMENOrdering Facility: [facility] Address: [address] [place] [address] Performed By: #### 3 016-3, 11865-1, 3024-7, 90374-3 ####[facility] LABORATORYCLIA [id number] [address] 36on 06-04-2024 36 Normal [facility] 36on 06-01-2024 36 Normal [facility] Progress Noteon 05-22-2024 Progress Note Normal [facility] PT Coag (Bld) [Time]on 05-21 INR Coag (PPP) [Relative time] 2.8 {INR} Abnormal 0.9 - 1.1 [facility] Interpretation and review of laboratory results Abnormal [facility] Progress Noteon 05-21-2024 Progress Note Normal [facility] Progress Note INR reported on b y Christin with [facility]. Christin can be reached at [phone] with questions. Normal [facility] Protime-INRon 05-21-2024 PT Coag (Bld) [Time] 33.9 s Abnormal 9.0 - 12.[address] [facility] Heart TransthoracicOrdere d By: Davian Landrum on 05-14-2024 Ao Root [facility] 1.63 cm/[facility]2 [facility] Phone: Aortic Arch 2.6 [facility] Work Phone: Aortic Root 2.8 cm [facility] Work Phone: Aortic Sinus Valsalva 2.8 cm [facility] Work Phone: Aortic Sinus Valsalva Index 1.63 cm/m2 [facility] Work Phone: Ascending Aorta 2.7 cm [facility] Work Phone: Ascending Aorta Index 1.57 cm/m2 [facility] Work Phone: AV Area by Peak Velocity 1.4 cm2 [facility] Work Phone: AV Area by VTI 1.4 cm2 [facility] Work Phone: AV Mean Gradient 3 mmHg [facility] Work Phone: AV Mean Velocity 0.9 m/s [facility] Work Phone: AV Peak Gradient 7 mmHg [facility] Work Phone: AV Peak Velocity 1.3 m/s [facility] Work Phone: AV Velocity Ratio 0.62 [facility] Work Phone: AV VTI 30 cm [facility] Work Phone: POLA/BSA Peak Velocity 0.8 cm2/m2 [facility] Work Phone: POLA/BSA VTI 0.8 cm2/m2 [facility] Work Phone: E/E' Lateral 14 [facility] Work Phone: E/E' Ratio (Averaged) 18 [facility] Work Phone: E/E' Septal 22 [facility] Work Phone: EF BP 61 % 55 - 100 % [facility] Work Phone: Est. RA Pressure 3 mmHg [facility] Work Phone: [phone] Fractional Shortening 2D 30 % 28 - 44 % [facility] [employer] Work Phone: [phone] Global Longitudinal Strain -15.3 % [facility] [employer] Work Phone: Interpretation and review of laboratory results Abnormal [facility] [employer] Work Phone: [phone] IVC Diameter 1.8 cm [facility] [employer] Work Phone: [phone] IVSd 1 cm Abnormal 0.6 - 0.9 cm [facility] [employer] Work Phone: [phone] LA Diameter 4.1 cm [facility] [employer] Work Phone: [phone] LA Size Index 2.38 cm/m2 [facility] [employer] Work Phone: [phone] LA Volume 2C 63 mL Abnormal 22 - 52 mL [facility] [employer] Work Phone: [phone] LA Volume 4C 80 mL Abnormal 22 - 52 mL [facility] [employer] Work Phone: [phone] LA Volume A/L [address] [facility] Work Phone: [phone] LA Volume BP 72 mL Abnormal 22 - 52 mL [facility] [employer] Work Phone: [phone] LA Volume Index 2C 37 mL/m2 Abnormal 16 - 34 mL/m2 [facility] [employer] Work Phone: [phone] LA Volume Index 4C 47 mL/m2 Abnormal 16 - 34 mL/m2 [facility] [employer] Work Phone: [phone] LA Volume Index A/L 44 mL/m2 16 - 34 mL/m2 [facility] [employer] Work Phone: [phone] LA Volume Index BP 42 ml/m2 Abnormal 16 - 34 ml/m2 [facility] [employer] Work Phone: [phone] LA/AO Root Ratio 1.46 [facility] Work Phone: LV E' Lateral Velocity 11 cm/s [facility] Work Phone: LV E' Septal Velocity 7 cm/s [facility] Work Phone: LV EDV A2C 45 mL [facility] Work Phone: LV EDV A4C 48 mL [facility] Work Phone: LV EDV BP 47 mL Abnormal 56 - 104 mL [facility] Work Phone: [phone] LV EDV Index A2C 26 mL/m2 [facility] Work Phone: LV EDV Index A4C 28 mL/m2 [facility] Work Phone: LV EDV Index BP 27 mL/m2 [facility] Work Phone: LV Ejection Fraction A2C 68 % [facility] Work Phone: [phone] LV Ejection Fraction A4C 55 % [facility] Work Phone: LV ESV A2C 14 mL [facility] Work Phone: LV ESV A4C 21 mL [facility] Work Phone: LV ESV BP 18 mL Abnormal 19 - 49 mL [facility] Work Phone: LV ESV Index A2C 8 mL/m2 [facility] Work Phone: LV ESV Index A4C 12 mL/m2 [facility] Work Phone: LV ESV Index BP 10 mL/m2 [facility] Work Phone: LV Mass 2D 142.5 g 67 - 162 g [facility] Work Phone: LV Mass 2D Index 82.8 g/m2 43 - 95 g/m2 [facility] Work Phone: LV RWT Ratio 0.47 [facility] Work Phone: LVIDd 4.3 cm 3.9 - 5.3 cm [facility] Work Phone: LVIDd Index 2.5 cm/m2 [facility] Work Phone: LVIDs 3 cm [facility] Work Phone: LVIDs Index 1.74 cm/m2 [facility] Work Phone: LVOT Area 2.5 cm2 [facility] Work Phone: LVOT Cardiac Output 3.2 liter/mi nut e [facility] Work Phone: LVOT Diameter 1.8 cm [facility] Work Phone: LVOT Mean Gradient 1 mmHg [facility] Work Phone: LVOT Peak Gradient 2 mmHg [facility] Work Phone: LVOT Peak Velocity 0.8 m/s [facility] Work Phone: LVOT Stroke Volume Index 25.1 mL/m2 [facility] Work Phone: LVOT SV 43.2 ml [facility] Work Phone: LVOT VTI 17 cm [facility] Work Phone: LVOT:AV VTI Index 0.57 [facility] ealth Work Phone: LVPWd 1 cm Abnormal 0.6 - 0.9 cm [facility] Work Phone: MV A Velocity 0.41 m/s [facility] Work Phone: MV Area by PHT 3.3 cm2 [facility] Work Phone: MV Area by VTI 1.2 cm2 [facility] Work Phone: MV E Velocity 1.54 m/s [facility] Work Phone: MV E Wave Deceleration Time 180.9 ms [facility] Work Phone: MV E/A 3.76 [facility] Work Phone: MV Max Velocity 1.7 m/s [facility] Work Phone: MV Mean Gradient 4 mmHg [facility] Work Phone: MV Mean Velocity 0.9 m/s [facility] Work Phone: MV Peak Gradient 11 mmHg [facility] Work Phone: MV PHT 66.9 ms [facility] Work Phone: MV VTI 35.1 cm [facility] Work Phone: MV:LVOT VTI Index 2.06 [facility] ealth Work Phone: [phone] RA Area 4C 55.1 mL [facility] Work Phone: [phone] RV Basal Dimension 2.7 cm [facility] Work Phone: [phone] RV Free Wall Peak S' 11 cm/s [facility] Work Phone: [phone] RV Longitudinal Dimension 4.9 cm [facility] Work Phone: [phone] RV Mid Dimension 2.1 cm [facility] alth Work Phone: [phone] RVSP 54 mmHg [facility] Work Phone: [phone] Sinotubular Junction 2.7 cm [facility] Work Phone: [phone] TAPSE 1.5 cm Abnormal 1.7 cm [facility] Work Phone: [phone] TR Max Velocity 3.56 m/s [facility] Hea lth Work Phone: [phone] TR Peak Gradient 51 mmHg [facility] alth Work Phone: [phone] TR Peak Velocity PISA 3.6 m/s [facility] Work Phone: TR VTI 120.8 cm [facility] Work Phone: [phone] TV EROA 0.2 cm2 [facility] Work Phone: TV Nyquist Velocity 39 cm/s [facility] Work Phone: [phone] [facility] Work Phone: [phone] Heart Transthoracicon There is a 1.3 [...] time] 2.7 {INR} Abnormal 0.9 - 1.1 [facility] Interpretation and review of laboratory results Abnormal [facility] Progress Noteon 05-09-2024 Progress Note Graciela from [facility] call ed in results. Normal [facility] Progress Note Normal [facility] Protime-INRon 05-09-2024 PT Coag (Bld) [Time] 32.1 s Abnormal 9.0 - 12.0 [facility] PT Coag (Bld) [Time]on 05-01 INR Coag (PPP) [Relative time] 2.7 {INR} Abnormal 0.9 - 1.1 [facility] Interpretation and review of laboratory results Abnormal [facility] Progress Noteon 05-01-2024 Progress Note Normal [facility] Progress Note Tia- [facility]- [phone] Normal [facility] Protime-INRon 05-01-2024 PT Coag (Bld) [Time] 32.4 s Abnormal 9.0 - 12.0 [facility] 36on 04-27-2024 36 Pt requested refill on warfarin 5mg. Sent to [facility]. Receipt confirmed by pharmacy. Normal [facility] Progress Noteon 04-27-2024 Progress Note Normal [facility] Progress Note Tia- [facility]- [phone] Normal [facility] Progress Noteon 04-25-2024 Progress Note Normal [facility] Progress Noteon 04-23-2024 Progress Note Normal [facility] Progress Note Christin [facility] called any questions or concerns [phone]. Normal [facility] PT Coag (Bld) [Time]on 04-19 INR Coag (PPP) [Relative time] 2.1 {INR} Abnormal 0.9 - 1.1 [facility] Interpretation and review of laboratory results Abnormal [facility] Progress Noteon 04-19-2024 Progress Note Normal [facility] Progress Note Graciela with [facility] repo rts INR on Graciela can be reached at [phone] with any questions. Normal [facility] Protime-INRon 04-19-2024 PT Coag (Bld) [Time] 24.9 s Abnormal 9.0 - 12.0 [facility] Progress Noteon 04-16-2024 Progress Note Christin- [facility]- [phone] Normal [facility] Progress Note Normal [facility] Progress Noteon 04-14-2024 Progress Note Placed new order for POCT INR, [facility] had not received. Normal [facility] [id number] 04-13-2024 [id number] Normal [facility] APTTon 04-13-2024 aPTT Coag (Bld) [Time] 132.2 s Critically high 20.0-30. 5 [facility] Comment on above: Result Comment: ORDE R COMMENTS:NOTE: The therapeutic time for Heparin anticoagulation, based on Xa activity inhibition, is an APTT of 46-80 seconds. Performed By: #### L [id number], [id number] ####Software Writer: VELMA VALADEZ ([id number])[facility])[address] [place] [address] BASIC METABOLIC PANELon 09-2 Anion gap [Moles/Vol] 2 mmol/L Low 3-[address] [facility] Comment on above: Performed By: #### L [id number] ####Software Writer: VELMA VALADEZ ([id number])[facility] ([facility])[address] [place] [address] Calcium [Mass/Vol] 9.0 mg/dL Normal 8.4-10.4 [facility] Comment on above: Performed By: #### L [id number] ####Software Writer: VELMA VALADEZ ([id number])[facility] ([facility])[address] [place] [address] Chloride [Moles/Vol] 108 mmol/L High 98-107 [facility] Comment on above: Performed By: #### L [id number] ####Software Writer: VELMA VALADEZ ([id number])[facility] ([facility])[address] [place] [address] CO2 [Moles/Vol] 25 mmol/L Normal 22-30 [facility] Comment on above: Performed By: #### L AB15 ####Software Writer: VELMA VALADEZ ([id number])[facility])[address] [place] [address] Creatinine [Mass/Vol] 1.00 mg/dL Normal 0.52-1.[address] [facility] Comment on above: Performed By: #### L AB15 ####Software Writer: VELMA VALADEZ ([id number])[facility])[address] [place] [address] GLOMERULAR FILTRATION RATE ML/MIN/1.73 SQ M.PREDICTED 55.7 mL/min/1.73m*2 Low >60.0 [facility] Comment on above: Result Comment: Calc ulation based on the Chronic Kidney Disease Epidemiology Collaboration (CKD-EPI) equation refit without adjustment for race Performed By: #### L AB15 ####Software Writer: VELMA VALADEZ ([id number])[facility])[address] [place] [address] Glucose [Mass/Vol] 98 mg/dL Normal 70-100 [facility] Comment on above: Performed By: #### L AB15 ####Software Writer: VELMA VALADEZ ([id number])[facility])[address] [place] [address] Potassium [Moles/Vol] 4.3 mmol/L Normal 3.5-5.[address] [facility] Comment on above: Performed By: #### L [id number] ####Software Writer: VELMA VALADEZ ([id number])[facility] ([facility])[address] [place] [address] Sodium [Moles/Vol] 135 mmol/L Normal 135-145 [facility] Comment on above: Performed By: #### L AB15 ####Software Writer: VELMA VALADEZ ([id number])[facility] ([facility])[address] [place] [address] Urea nitrogen [Mass/Vol] 18 mg/dL High 7-17 [facility] Comment on above: Performed By: #### L AB15 ####Software Writer: VELMA VALADEZ ([id number])[facility])[address] [place] [address] Basic metabolic 1998 panelon 04-13-2024 Anion gap [Moles/Vol] 2 mmol/L Low 3 - 13 mmol/L [facility] Calcium [Mass/Vol] 9.0 mg/dL 8.4 - 10. 4 mg/dL [facility] Chloride [Moles/Vol] 108 mmol/L High 98 - 10 7 mmol/L [facility] CO2 [Moles/Vol] 25 mmol/L 22 - 30 mmol/L [facility] Creatinine [Mass/Vol] 1.00 mg/dL 0.52 - 1.04 mg/dL [facility] GFR/1.73 sq M.predicted (S/P/Bld) [Vol rate/Area] 55.7 mL/min Low - PINF [facility] Comment on above: Calculation based on the Chronic Kidney Disease Epidemiology Collaboration (CKD-EPI) equation refit without adjustment for race Glucose [Mass/Vol] 98 mg/dL 70 - 100 mg/dL [facility] Interpretation and review of laboratory results Abnormal [facility] Potassium [Moles/Vol] 4.3 mmol/L 3.5 - 5.1 mmol/L [facility] Sodium [Moles/Vol] 135 mmol/L 135 - 145 mmol/L [facility] Urea nitrogen [Mass/Vol] 18 mg/dL High 7 - 17 mg/dL [facility] CARECOORDon 04-13-[address] [facility] Normal [facility] Normal [facility] CBC W Auto Differential pane l (Bld)on 04-13-2024 Basophils (Bld) [#/Vol] 0.0 10*3/uL 0.0 - 0.2 10*3/uL [facility] Basophils/100 WBC (Bld) 0.7 % 0.0 - 2.0 % [facility] Eosinophils (Bld) [#/Vol] 0.1 10*3/uL 0.0 - 0.5 10*3/uL [facility] Eosinophils/100 WBC (Bld) 2.6 % 0.0 - 6.0 % [facility] Erythrocyte distribution width (RBC) [Ratio] 14.5 % 11.5 - 15.0 % [facility] Hematocrit (Bld) [Volume fraction] 26.3 % Low 35.0 - 47.0 % [facility] Hemoglobin (Bld) [Mass/Vol] 8.6 g/dL Low 11.7 - 16.0 g/dL [facility] Immature granulocytes (Bld) [#/Vol] 0.0 10*3/uL NINF - 0.1 10*3/uL [facility] Immature granulocytes/100 WBC (Bld) 0.2 % 0.0 - 2.0 % [facility] Interpretation and review of laboratory results Abnormal [facility] Lymphocytes (Bld) [#/Vol] 1.4 10*3/uL 1.0 - 4.3 10*3/uL [facility] Lymphocytes/100 WBC (Bld) 33.5 % 15.0 - 45.0 % [facility] MCH (RBC) [Entitic mass] 29.8 pg 26.0 - 34.0 pg [facility] MCHC (RBC) [Mass/Vol] 32.7 % 30.5 - 36.0 % [facility] MCV (RBC) [Entitic vol] 91.0 fL 77.0 - 99.0 fL [facility] Monocytes (Bld) [#/Vol] 0.5 10*3/uL 0.0 - 0.9 10*3/uL [facility] Monocytes/100 WBC (Bld) 11.3 % 5.0 - 13.0 % [facility] Neutrophils (Bld) [#/Vol] 2.2 10*3/uL 1.8 - 7.5 10*3/uL [facility] Neutrophils/100 WBC (Bld) 51.7 % 38.0 - 82.0 % [facility] Nucleated RBC/100 WBC (Bld) [Ratio] 0.0 % [facility] Platelet mean volume (Bld) [Entitic vol] 9.4 fL 9.0 - 12.7 fL [facility] Platelets (Bld) [#/Vol] 317 10*3/uL 140 - 440 10*3/uL [facility] RBC (Bld) [#/Vol] 2.89 10*6/uL Low 3.80 - 5.2 0 10*6/uL [facility] WBC (Bld) [#/Vol] 4.2 10*3/uL 3.6 - 10.7 10*3/uL [facility] CBC WITH AUTO DIFFERENTIALon 04-13-2024 Basophils (Bld) [#/Vol] 0.0 10*3/uL Normal 0.0-0.2 [facility] Comment on above: Performed By: #### L [id number] ####Software Writer: VELMA VALADEZ ([id number])[facility] ([facility])[address] [place] [address] Basophils/100 WBC (Bld) 0.7 % Normal 0.0-2.0 [facility] Comment on above: Performed By: #### L [id number] ####Software Writer: VELMA VALADEZ ([id number])[facility] ([facility])[address] [place] [address] Eosinophils (Bld) [#/Vol] 0.1 10*3/uL Normal 0.0-0.5 [facility] Comment on above: Performed By: #### L [id number] ####Software Writer: VELMA VALADEZ ([id number])[facility])[address] [place] [address] Eosinophils/100 WBC (Bld) 2.6 % Normal 0.0-6.0 [facility] Comment on above: Performed By: #### L [id number] ####Software Writer: VELMA VALADEZ ([id number])[facility])[address] [place] [address] Erythrocyte distribution width (RBC) [Ratio] 14.5 % Normal 11.5-15.0 [facility] Comment on above: Performed By: #### L [id number] ####Software Writer: VELMA VALADEZ ([id number])[facility])[address] [place] [address] Hematocrit (Bld) [Volume fraction] 26.3 % Low 35.0-47.0 [facility] Comment on above: Performed By: #### L [id number] ####Software Writer: VELMA VALADEZ ([id number])[address] Hemoglobin (Bld) [Mass/Vol] 8.6 g/dL Low 11.7-16.0 [facility] Comment on above: Performed By: #### L [id number] ####Software Writer: VELMA VALADEZ ([id number])[facility])[address] [place] [address] IMMATURE GRANS % 0.2 % Normal 0.0-2.0 [facility] Comment on above: Performed By: #### L [id number] ####Software Writer: VELMA VALADEZ ([id number])[facility])[address] [place] [address] IMMATURE GRANS ABSOLUTE 0.0 10*3/uL Normal <0.1 [facility] Comment on above: Performed By: #### L [id number] ####Software Writer: VELMA VALADEZ ([id number])[facility])[address] [place] [address] Lymphocytes (Bld) [#/Vol] 1.4 10*3/uL Normal 1.0-4.3 [facility] Comment on above: Performed By: #### L [id number] ####Software Writer: VELMA VALADEZ ([id number])[facility])[address] [place] [address] Lymphocytes/100 WBC (Bld) 33.5 % Normal 15.0-45.0 [facility] Comment on above: Performed By: #### L [id number] ####Software Writer: VELMA VALADEZ ([id number])[facility])[address] [place] [address] MCH (RBC) [Entitic mass] 29.8 pg Normal 26.0-34.0 [facility] Comment on above: Performed By: #### L [id number] ####Software Writer: VELMA VALADEZ ([id number])[facility])[address] [place] [address] MCHC 32.7 % Normal 30.5-36.0 [facility] Comment on above: Performed By: #### L [id number] ####Software Writer: VELMA VALADEZ ([id number])[facility])[address] [place] [address] MCV (RBC) [Entitic vol] 91.0 fL Normal 77.0-99.0 [facility] Comment on above: Performed By: #### L [id number] ####Software Writer: VELMA VALADEZ ([id number])[facility])[address] [place] [address] Monocytes (Bld) [#/Vol] 0.5 10*3/uL Normal 0.0-0.9 [facility] Comment on above: Performed By: #### L [id number] ####Software Writer: VELMA VALADEZ ([id number])[facility] ([facility])[address] [place] [address] Monocytes/100 WBC (Bld) 11.3 % Normal 5.0-13.0 [facility] Comment on above: Performed By: #### L [id number] ####Software Writer: VELMA VALADEZ ([id number])[facility] ([facility])[address] [place] [address] NEUTROPHILS ABSOLUTE 2.2 10*3/uL Normal 1.8-7.[address] [facility] Comment on above: Performed By: #### L [id number] ####Software Writer: VELMA VALADEZ ([id number])[facility] ([facility])[address] [place] [address] Neutrophils/100 WBC (Bld) 51.7 % Normal 38.0-82.0 [facility] Comment on above: Performed By: #### L [id number] ####Software Writer: VELMA VALADEZ ([id number])[facility] ([facility])[address] [place] [address] NRBC 0.0 /100 WBCs Normal 0.0-2.0 [facility] Comment on above: Performed By: #### L [id number] ####Software Writer: VELMA VALADEZ ([id number])[facility] ([facility])[address] [place] [address] Platelet mean volume (Bld) [Entitic vol] 9.4 fL Normal 9.0-12.7 [facility] Comment on above: Performed By: #### L [id number] ####Software Writer: VELMA VALADEZ ([id number])[facility] ([facility])[address] [place] [address] [place] Platelets (Bld) [#/Vol] 317 10*3/uL Normal 140-440 [facility] Comment on above: Performed By: #### L [id number] ####Software Writer: VELMA VALADEZ ([id number])[facility] ([facility])[address] [place] [address] [place] RBC (Bld) [#/Vol] 2.89 10*6/uL Low 3.80-5.20 [facility] Comment on above: Performed By: #### L [id number] ####Software Writer: VELMA VALADEZ ([phone])[facility])[address] [place] [address] WBC (Bld) [#/Vol] 4.2 10*3/uL Normal 3.6-10.7 [facility] Comment on above: Performed By: #### L [id number] ####Software Writer: VELMA VALADEZ ([id number])[facility])[address] [place] [address] IDNon 04-13-2024 IDN Normal [facility] Laboratory - Coagulationon 0 04-13-2024 PT Coag (Bld) [Time] 24.2 s High 9.0 - 1 2.0 s [facility] Nursing Noteon 04-13-2024 Nursing Note AVS [...] Myocardial Infarction Performed By: #### L [id number], [id number] ####Software Writer: VELMA VALADEZ ([id number])[facility] ([facility])[address] [place] [address] PT Coag (PPP) [Time] 24.2 s High 9.0-12.0 [facility] Comment on above: Performed By: #### L [id number], [id number] ####Software Writer: VELMA VALADEZ ([id number])[facility] ([facility])[address] [place] [address] PT Coag (Bld) [Time]on 04-13 INR Coag (PPP) [Relative time] 2.3 {INR} High 0.9 - 1.1 [facility] Comment on above: Recommended Anticoag ulant [...] and review of laboratory results Abnormal [facility] Progress Noteon 04-13-2024 Progress Note Normal [facility] Progress Note Normal [facility] Progress Note Normal [facility] aPTT Coag (Bld) [Time]Ordere d By: Melany Tejeda on 04-13-2024 aPTT Coag (PPP) [Time] 132.2 s Critically high 20 .0 - 30.5 s [facility] Interpretation and review of laboratory results Abnormal [facility] NOTE: The therapeuti c time for Heparin anticoagulation, based on Xa activity inhibition, is an APTT of 46-80 seconds. [facility] BASIC METABOLIC PANELon 03-19 Anion gap [Moles/Vol] 3 mmol/L Normal 3-[address] [facility] Comment on above: Performed By: #### L AB15 ####Software Writer: VELMA VALADEZ ([id number])[facility] ([facility])[address] [place] [address] Calcium [Mass/Vol] 9.3 mg/dL Normal 8.4-10.4 [facility] Comment on above: Performed By: #### L AB15 ####Software Writer: VELMA VALADEZ ([id number])[facility] ([facility])[address] [place] [address] Chloride [Moles/Vol] 108 mmol/L High 98-107 [facility] Comment on above: Performed By: #### L AB15 ####Software Writer: VELMA VALADEZ ([id number])[facility] ([facility])[address] [place] [address] CO2 [Moles/Vol] 24 mmol/L Normal 22-30 [facility] Comment on above: Performed By: #### L AB15 ####Software Writer: VELMA VALADEZ ([id number])[facility])[address] [place] [address] Creatinine [Mass/Vol] 0.99 mg/dL Normal 0.52-1.[address] [facility] Comment on above: Performed By: #### L AB15 ####Software Writer: VELMA VALADEZ ([id number])[facility] ([facility])[address] [place] [address] GLOMERULAR FILTRATION RATE ML/MIN/1.73 SQ M.PREDICTED 56.3 mL/min/1.73m*2 Low >60.0 [facility] Comment on above: Result Comment: Calc ulation based on the Chronic Kidney Disease Epidemiology Collaboration (CKD-EPI) equation refit without adjustment for race Performed By: #### L AB15 ####Software Writer: VELMA VALADEZ ([id number])[facility] ([facility])[address] [place] [address] Glucose [Mass/Vol] 101 mg/dL High 70-100 [facility] Comment on above: Performed By: #### L AB15 ####Software Writer: VELMA VALADEZ ([id number])[facility])[address] [place] [address] Potassium [Moles/Vol] 3.9 mmol/L Normal 3.5-5.[address] [facility] Comment on above: Performed By: #### L AB15 ####Software Writer: VELMA [id number])[facility] ([facility])[address] [place] [address] Sodium [Moles/Vol] 135 mmol/L Normal 135-145 [facility] Comment on above: Performed By: #### L AB15 ####Software Writer: VELMA VALADEZ ([id number])[facility] ([facility] [place] [address] Urea nitrogen [Mass/Vol] 16 mg/dL Normal 7-17 [facility] Comment on above: Performed By: #### L AB15 ####Software Writer: VELMA VALADEZ ([id number])[facility] ([facility])[address] [place] [address] Basic metabolic 1998 panelon 04-12-2024 Anion gap [Moles/Vol] 3 mmol/L 3 - 13 mmol/L [facility] Calcium [Mass/Vol] 9.3 mg/dL 8.4 - 10. 4 mg/dL [facility] Chloride [Moles/Vol] 108 mmol/L High 98 - 10 7 mmol/L [facility] CO2 [Moles/Vol] 24 mmol/L 22 - 30 mmol/L [facility] Creatinine [Mass/Vol] 0.99 mg/dL 0.52 - 1.04 mg/dL [facility] GFR/1.73 sq M.predicted (S/P/Bld) [Vol rate/Area] 56.3 mL/min Low - PINF [facility] Comment on above: Calculation based on the Chronic Kidney Disease Epidemiology Collaboration (CKD-EPI) equation refit without adjustment for race Glucose [Mass/Vol] 101 mg/dL High 70 - 100 mg/dL [facility] Interpretation and review of laboratory results Abnormal [facility] Potassium [Moles/Vol] 3.9 mmol/L 3.5 - 5.1 mmol/L [facility] Sodium [Moles/Vol] 135 mmol/L 135 - 145 mmol/L [facility] Urea nitrogen [Mass/Vol] 16 mg/dL 7 - 17 mg/dL [facility] CARECOORDon 04-12-2024 CARECOORD Normal [facility] CBC W Auto Differential pane l (Bld)on 04-12-2024 Basophils (Bld) [#/Vol] 0.0 10*3/uL 0.0 - 0.2 10*3/uL [facility] Basophils/100 WBC (Bld) 0.5 % 0.0 - 2.0 % [facility] Eosinophils (Bld) [#/Vol] 0.1 10*3/uL 0.0 - 0.5 10*3/uL [facility] Eosinophils/100 WBC (Bld) 2.4 % 0.0 - 6.0 % [facility] Erythrocyte distribution width (RBC) [Ratio] 14.8 % 11.5 - 15.0 % [facility] Hematocrit (Bld) [Volume fraction] 28.3 % Low 35.0 - 47.0 % [facility] Hemoglobin (Bld) [Mass/Vol] 9.3 g/dL Low 11.7 - 16.0 g/dL [facility] Immature granulocytes (Bld) [#/Vol] 0.0 10*3/uL NINF - 0.1 10*3/uL [facility] Immature granulocytes/100 WBC (Bld) 0.2 % 0.0 - 2.0 % [facility] Interpretation and review of laboratory results Abnormal [facility] Lymphocytes (Bld) [#/Vol] 1.4 10*3/uL 1.0 - 4.3 10*3/uL [facility] Lymphocytes/100 WBC (Bld) 33.0 % 15.0 - 45.0 % [facility] MCH (RBC) [Entitic mass] 30.4 pg 26.0 - 34.0 pg [facility] MCHC (RBC) [Mass/Vol] 32.9 % 30.5 - 36.0 % [facility] MCV (RBC) [Entitic vol] 92.5 fL 77.0 - 99.0 fL [facility] Monocytes (Bld) [#/Vol] 0.5 10*3/uL 0.0 - 0.9 10*3/uL [facility] Monocytes/100 WBC (Bld) 11.9 % 5.0 - 13.0 % [facility] Neutrophils (Bld) [#/Vol] 2.1 10*3/uL 1.8 - 7.5 10*3/uL [facility] Neutrophils/100 WBC (Bld) 52.0 % 38.0 - 82.0 % [facility] Nucleated RBC/100 WBC (Bld) [Ratio] 0.0 % [facility] Platelet mean volume (Bld) [Entitic vol] 9.5 fL 9.0 - 12.7 fL [facility] Platelets (Bld) [#/Vol] 307 10*3/uL 140 - 440 10*3/uL [facility] RBC (Bld) [#/Vol] 3.06 10*6/uL Low 3.80 - 5.2 0 10*6/uL [facility] WBC (Bld) [#/Vol] 4.1 10*3/uL 3.6 - 10.7 10*3/uL [facility] CBC WITH AUTO DIFFERENTIALon 04-12-2024 Basophils (Bld) [#/Vol] 0.0 10*3/uL Normal 0.0-0.2 [facility] Comment on above: Performed By: #### L [id number] ####Software Writer: VELMA VALADEZ ([id number])[facility])[address] [place] [address] Basophils/100 WBC (Bld) 0.5 % Normal 0.0-2.0 [facility] Comment on above: Performed By: #### L [id number] ####Software Writer: VELMA VALADEZ ([id number])[facility])[address] [place] [address] Eosinophils (Bld) [#/Vol] 0.1 10*3/uL Normal 0.0-0.5 [facility] Comment on above: Performed By: #### L [id number] ####Software Writer: VELMA VALADEZ ([id number])[facility])[address] [place] [address] Eosinophils/100 WBC (Bld) 2.4 % Normal 0.0-6.0 [facility] Comment on above: Performed By: #### L [id number] ####Software Writer: VELMA VALADEZ ([id number])[facility])[address] [place] [address] Erythrocyte distribution width (RBC) [Ratio] 14.8 % Normal 11.5-15.0 [facility] Comment on above: Performed By: #### L [id number] ####Software Writer: VELMA VALADEZ ([id number])[facility] ([facility])[address] [place] [address] Hematocrit (Bld) [Volume fraction] 28.3 % Low 35.0-47.0 [facility] Comment on above: Performed By: #### L [id number] ####Software Writer: VELMA VALADEZ ([id number])[facility] ([facility])[address] [place] [address] Hemoglobin (Bld) [Mass/Vol] 9.3 g/dL Low 11.7-16.0 [facility] Comment on above: Performed By: #### L [id number] ####Software Writer: VELMA VALADEZ ([id number])[facility])[address] [place] [address] IMMATURE GRANS % 0.2 % Normal 0.0-2.0 [facility] Comment on above: Performed By: #### L [id number] ####Software Writer: VELMA VALADEZ ([id number])[facility] ([facility])[address] [place] [address] IMMATURE GRANS ABSOLUTE 0.0 10*3/uL Normal <0.1 [facility] Comment on above: Performed By: #### L [id number] ####Software Writer: VELMA VALADEZ ([id number])[facility])[address] [place] [address] Lymphocytes (Bld) [#/Vol] 1.4 10*3/uL Normal 1.0-4.3 [facility] Comment on above: Performed By: #### L [id number] ####Software Writer: VELMA VALADEZ ([id number])[facility])[address] [place] [address] Lymphocytes/100 WBC (Bld) 33.0 % Normal 15.0-45.0 [facility] Comment on above: Performed By: #### L [id number] ####Software Writer: VELMA VALADEZ ([id number])[facility])[address] [place] [address] MCH (RBC) [Entitic mass] 30.4 pg Normal 26.0-34.0 [facility] Comment on above: Performed By: #### L [id number] ####Software Writer: VELMA VALADEZ ([id number])[facility])[address] [place] [address] MCHC 32.9 % Normal 30.5-36.0 [facility] Comment on above: Performed By: #### L [id number] ####Software Writer: VELMA VALADEZ ([id number])[facility])[address] [place] [address] MCV (RBC) [Entitic vol] 92.5 fL Normal 77.0-99.0 [facility] Comment on above: Performed By: #### L [id number] ####Software Writer: VELMA VALADEZ ([id number])[facility] ([facility])[address] [place] [address] Monocytes (Bld) [#/Vol] 0.5 10*3/uL Normal 0.0-0.9 [facility] Comment on above: Performed By: #### L [id number] ####Software Writer: VELMA VALADEZ ([id number])[facility] ([facility])[address] [place] [address] Monocytes/100 WBC (Bld) 11.9 % Normal 5.0-13.0 [facility] Comment on above: Performed By: #### L [id number] ####Software Writer: VELMA VALADEZ ([id number])[facility] ([facility])[address] [place] [address] NEUTROPHILS ABSOLUTE 2.1 10*3/uL Normal 1.8-7.[address] [facility] Comment on above: Performed By: #### L [id number] ####Software Writer: VELMA VALADEZ ([id number])[facility])[address] [place] [address] Neutrophils/100 WBC (Bld) 52.0 % Normal 38.0-82.0 [facility] Comment on above: Performed By: #### L [id number] ####Software Writer: VELMA VALADEZ ([id number])[facility])[address] [place] [address] NRBC 0.0 /100 WBCs Normal 0.0-2.0 [facility] Comment on above: Performed By: #### L [id number] ####Software Writer: VELMA VALADEZ ([id number])[facility] ([facility])[address] [place] [address] Platelet mean volume (Bld) [Entitic vol] 9.5 fL Normal 9.0-12.7 [facility] Comment on above: Performed By: #### L [id number] ####Software Writer: VELMA VALADEZ ([id number])[facility] ([facility])[address] [place] [address] Platelets (Bld) [#/Vol] 307 10*3/uL Normal 140-440 [facility] Comment on above: Performed By: #### L [id number] ####Software Writer: VELMA VALADEZ ([id number])[facility] ([facility])[address] [place] [address] RBC (Bld) [#/Vol] 3.06 10*6/uL Low 3.80-5.20 [facility] Comment on above: Performed By: #### L [id number] ####Software Writer: VELMA VALADEZ ([id number])[facility] ([facility])[address] [place] [address] WBC (Bld) [#/Vol] 4.1 10*3/uL Normal 3.6-10.7 [facility] Comment on above: Performed By: #### L [id number] ####Software Writer: VELMA VALADEZ ([id number])[facility] ([facility])[address] [place] [address] [place] IDNon 04-12-2024 IDN Normal [facility] IDN Normal [facility] Laboratory - Coagulationon 0 04-12-2024 PT Coag (Bld) [Time] 20.3 s High 9.0 - 1 2.0 s [facility] PROTHROMBIN TIMEon INR Coag (PPP) [Relative [...] Myocardial Infarction Performed By: #### L [id number] ####Software Writer: VELMA VALADEZ ([id number])[address] PT Coag (PPP) [Time] 20.3 s High 9.0-12.0 [facility] Comment on above: Performed By: #### L [id number] ####Software Writer: VELMA VALADEZ ([id number])[facility] ([facility])[address] [place] [address] PT Coag (Bld) [Time]on 04-12 INR Coag (PPP) [Relative time] 1.9 {INR} High 0.9 - 1.1 [facility] Comment on above: Recommended Anticoag ulant [...] and review of laboratory results Abnormal [facility] Progress Noteon 04-12-2024 Progress Note Normal [facility] Normal [facility] APTTon 04-11-2024 aPTT Coag (Bld) [Time] 62.7 s High 20.0-30.5 [facility] Comment on above: Result Comment: BUBBA Garcia COMMENTS:NOTE: The therapeutic time for Heparin anticoagulation, based on Xa activity inhibition, is an APTT of 46-80 seconds. Performed By: #### L [id number] ####Software Writer: VELMA VALADEZ ([id number])[facility] ([facility])[address] [place] [address] aPTT Coag (Bld) [Time] 69.0 s High 20.0-30.5 [facility] Comment on above: Result Comment: BUBBA Garcia COMMENTS:NOTE: The therapeutic time for Heparin anticoagulation, based on Xa activity inhibition, is an APTT of 46-80 seconds. Performed By: #### L [id number], [id number] ####Software Writer: VELMA VALADEZ ([id number])[facility] ([facility])[address] [place] [address] BASIC METABOLIC PANELon 03-19 Anion gap [Moles/Vol] 4 mmol/L Normal 3-[address] [facility] Comment on above: Performed By: #### L AB15 ####Software Writer: VELMA VALADEZ ([id number])[facility] ([facility])[address] [place] [address] Calcium [Mass/Vol] 8.8 mg/dL Normal 8.4-10.4 [facility] Comment on above: Performed By: #### L AB15 ####Software Writer: VELMA VALADEZ ([id number])[facility] ([facility])[address] [place] [address] [place] Chloride [Moles/Vol] 108 mmol/L High 98-107 [facility] Comment on above: Performed By: #### L AB15 ####Software Writer: VELMA VALADEZ ([id number])[facility] ([facility])[address] [place] [address] CO2 [Moles/Vol] 22 mmol/L Normal 22-30 [facility] Comment on above: Performed By: #### L AB15 ####Software Writer: VELMA VALADEZ ([id number])[facility])[address] [place] [address] Creatinine [Mass/Vol] 1.01 mg/dL Normal 0.52-1.[address] [facility] Comment on above: Performed By: #### L AB15 ####Software Writer: VELMA VALADEZ ([id number])[facility])[address] [place] [address] GLOMERULAR FILTRATION RATE ML/MIN/1.73 SQ M.PREDICTED 55.0 mL/min/1.73m*2 Low >60.0 [facility] Comment on above: Result Comment: Calc ulation based on the Chronic Kidney Disease Epidemiology Collaboration (CKD-EPI) equation refit without adjustment for race Performed By: #### L AB15 ####Software Writer: VELMA VALADEZ ([id number])[facility])[address] [place] [address] Glucose [Mass/Vol] 112 mg/dL High 70-100 [facility] Comment on above: Performed By: #### L AB15 ####Software Writer: VELMA VALADEZ ([id number])[facility])[address] [place] [address] Potassium [Moles/Vol] 4.0 mmol/L Normal 3.5-5.[address] [facility] Comment on above: Performed By: #### L AB15 ####Software Writer: VELMA VALADEZ ([id number])[facility])[address] [place] [address] [place] Sodium [Moles/Vol] 134 mmol/L Low 135-145 [facility] Comment on above: Performed By: #### L AB15 ####Software Writer: VELMA VALADEZ ([id number])[facility])[address] [place] [address] Urea nitrogen [Mass/Vol] 16 mg/dL Normal 7-17 [facility] Comment on above: Performed By: #### L AB15 ####Software Writer: VELMA [id number])[facility] ([facility])[address] [place] [address] Basic metabolic 1998 panelon 04-11-2024 Anion gap [Moles/Vol] 4 mmol/L 3 - 13 mmol/L [facility] Calcium [Mass/Vol] 8.8 mg/dL 8.4 - 10. 4 mg/dL [facility] Chloride [Moles/Vol] 108 mmol/L High 98 - 10 7 mmol/L [facility] CO2 [Moles/Vol] 22 mmol/L 22 - 30 mmol/L [facility] Creatinine [Mass/Vol] 1.01 mg/dL 0.52 - 1.04 mg/dL [facility] GFR/1.73 sq M.predicted (S/P/Bld) [Vol rate/Area] 55.0 mL/min Low - PINF [facility] Comment on above: Calculation based on the Chronic Kidney Disease Epidemiology Collaboration (CKD-EPI) equation refit without adjustment for race Glucose [Mass/Vol] 112 mg/dL High 70 - 100 mg/dL [facility] Interpretation and review of laboratory results Abnormal [facility] Potassium [Moles/Vol] 4.0 mmol/L 3.5 - 5.1 mmol/L [facility] Sodium [Moles/Vol] 134 mmol/L Low 135 - 145 mmol/L [facility] Urea nitrogen [Mass/Vol] 16 mg/dL 7 - 17 mg/dL [facility] CARECOORDon 04-11-2024 CARECOPICKEREL Normal [facility] CBC W Auto Differential pane l (Bld)on 04-11-2024 Basophils (Bld) [#/Vol] 0.0 10*3/uL 0.0 - 0.2 10*3/uL [facility] Basophils/100 WBC (Bld) 0.9 % 0.0 - 2.0 % [facility] Eosinophils (Bld) [#/Vol] 0.1 10*3/uL 0.0 - 0.5 10*3/uL [facility] Eosinophils/100 WBC (Bld) 2.0 % 0.0 - 6.0 % [facility] Erythrocyte distribution width (RBC) [Ratio] 14.8 % 11.5 - 15.0 % [facility] Hematocrit (Bld) [Volume fraction] 24.6 % Low 35.0 - 47.0 % [facility] Hemoglobin (Bld) [Mass/Vol] 8.3 g/dL Low 11.7 - 16.0 g/dL [facility] [employer] Immature granulocytes (Bld) [#/Vol] 0.0 10*3/uL NINF - 0.1 10*3/uL [facility] Immature granulocytes/100 WBC (Bld) 0.2 % 0.0 - 2.0 % [facility] Interpretation and review of laboratory results Abnormal [facility] Lymphocytes (Bld) [#/Vol] 1.4 10*3/uL 1.0 - 4.3 10*3/uL [facility] Lymphocytes/100 WBC (Bld) 31.9 % 15.0 - 45.0 % [facility] MCH (RBC) [Entitic mass] 30.5 pg 26.0 - 34.0 pg [facility] MCHC (RBC) [Mass/Vol] 33.7 % 30.5 - 36.0 % [facility] MCV (RBC) [Entitic vol] 90.4 fL 77.0 - 99.0 fL [facility] Monocytes (Bld) [#/Vol] 0.5 10*3/uL 0.0 - 0.9 10*3/uL [facility] Monocytes/100 WBC (Bld) 11.2 % 5.0 - 13.0 % [facility] Neutrophils (Bld) [#/Vol] 2.4 10*3/uL 1.8 - 7.5 10*3/uL [facility] Neutrophils/100 WBC (Bld) 53.8 % 38.0 - 82.0 % [facility] Nucleated RBC/100 WBC (Bld) [Ratio] 0.0 % [facility] Platelet mean volume (Bld) [Entitic vol] 10.0 fL 9.0 - 12.7 fL [facility] Platelets (Bld) [#/Vol] 244 10*3/uL 140 - 440 10*3/uL [facility] RBC (Bld) [#/Vol] 2.72 10*6/uL Low 3.80 - 5.2 0 10*6/uL [facility] WBC (Bld) [#/Vol] 4.5 10*3/uL 3.6 - 10.7 10*3/uL [facility] CBC WITH AUTO DIFFERENTIALon 04-11-2024 Basophils (Bld) [#/Vol] 0.0 10*3/uL Normal 0.0-0.2 [facility] Comment on above: Performed By: #### L [id number] ####Software Writer: VELMA VALADEZ ([id number])[facility] ([facility])[address] [place] [address] Basophils/100 WBC (Bld) 0.9 % Normal 0.0-2.0 [facility] Comment on above: Performed By: #### L [id number] ####Software Writer: VELMA VALADEZ ([id number])[facility])[address] [place] [address] Eosinophils (Bld) [#/Vol] 0.1 10*3/uL Normal 0.0-0.5 [facility] Comment on above: Performed By: #### L [id number] ####Software Writer: VELMA VALADEZ ([id number])[facility])[address] [place] [address] Eosinophils/100 WBC (Bld) 2.0 % Normal 0.0-6.0 [facility] Comment on above: Performed By: #### L [id number] ####Software Writer: VELMA VALADEZ ([id number])[facility])[address] [place] [address] Erythrocyte distribution width (RBC) [Ratio] 14.8 % Normal 11.5-15.0 [facility] Comment on above: Performed By: #### L [id number] ####Software Writer: VELMA VALADEZ ([phone])[facility] ([facility])[address] [place] [address] Hematocrit (Bld) [Volume fraction] 24.6 % Low 35.0-47.0 [facility] Comment on above: Performed By: #### L [id number] ####Software Writer: VELMA VALADEZ ([phone])[facility])[address] [place] [address] Hemoglobin (Bld) [Mass/Vol] 8.3 g/dL Low 11.7-16.0 [facility] Comment on above: Performed By: #### L [id number] ####Software Writer: VELMA VALADEZ ([id number])[facility])[address] [place] [address] IMMATURE GRANS % 0.2 % Normal 0.0-2.0 [facility] Comment on above: Performed By: #### L [id number] ####Software Writer: VELMA VALADEZ ([phone])[facility])[address] [place] [address] IMMATURE GRANS ABSOLUTE 0.0 10*3/uL Normal <0.1 [facility] Comment on above: Performed By: #### L [id number] ####Software Writer: VELMA VALADEZ ([id number])[address] Lymphocytes (Bld) [#/Vol] 1.4 10*3/uL Normal 1.0-4.3 [facility] Comment on above: Performed By: #### L [id number] ####Software Writer: VELMA VALADEZ ([id number])[address] Lymphocytes/100 WBC (Bld) 31.9 % Normal 15.0-45.0 [facility] Comment on above: Performed By: #### L [id number] ####Software Writer: VELMA VALADEZ ([id number])[facility])[address] [place] [address] MCH (RBC) [Entitic mass] 30.5 pg Normal 26.0-34.0 [facility] Comment on above: Performed By: #### L [id number] ####Software Writer: VELMA VALADEZ ([id number])[facility])[address] [place] [address] MCHC 33.7 % Normal 30.5-36.0 [facility] Comment on above: Performed By: #### L [id number] ####Software Writer: VELMA VALADEZ ([id number])[facility] ([facility])[address] [place] [address] MCV (RBC) [Entitic vol] 90.4 fL Normal 77.0-99.0 [facility] Comment on above: Performed By: #### L [id number] ####Software Writer: VELMA VALADEZ ([id number])[facility] ([facility])[address] [place] [address] [place] Monocytes (Bld) [#/Vol] 0.5 10*3/uL Normal 0.0-0.9 [facility] Comment on above: Performed By: #### L [id number] ####Software Writer: VELMA VALADEZ ([id number])[facility] ([facility])[address] [place] [address] Monocytes/100 WBC (Bld) 11.2 % Normal 5.0-13.0 [facility] Comment on above: Performed By: #### L [id number] ####Software Writer: VELMA VALADEZ ([id number])[facility] ([facility])[address] [place] [address] [place] NEUTROPHILS ABSOLUTE 2.4 10*3/uL Normal 1.8-7.[address] [facility] Comment on above: Performed By: #### L [id number] ####Software Writer: VELMA VALADEZ ([id number])[facility] ([facility])[address] [place] [address] [place] Neutrophils/100 WBC (Bld) 53.8 % Normal 38.0-82.0 [facility] Comment on above: Performed By: #### L [id number] ####Software Writer: VELMA VALADEZ ([phone])[facility] ([facility])[address] [place] [address] [place] NRBC 0.0 /100 WBCs Normal 0.0-2.0 [facility] Comment on above: Performed By: #### L [id number] ####Software Writer: VELMA VALADEZ ([id number])[facility] ([facility])[address] [place] [address] Platelet mean volume (Bld) [Entitic vol] 10.0 fL Normal 9.0-12.7 [facility] Comment on above: Performed By: #### L [id number] ####Software Writer: VELMA VALADEZ ([id number])[facility] ([facility])[address] [place] [address] Platelets (Bld) [#/Vol] 244 10*3/uL Normal 140-440 [facility] Comment on above: Performed By: #### L [id number] ####Software Writer: VELMA VALADEZ ([id number])[facility] ([facility])[address] [place] [address] RBC (Bld) [#/Vol] 2.72 10*6/uL Low 3.80-5.20 [facility] Comment on above: Performed By: #### L [id number] ####Software Writer: VELMA VALADEZ ([id number])[facility] ([facility])[address] [place] [address] WBC (Bld) [#/Vol] 4.5 10*3/uL Normal 3.6-10.7 [facility] Comment on above: Performed By: #### L [id number] ####Software Writer: VELMA VALADEZ ([id number])[facility] ([facility])[address] [place] [address] IDNon 04-11-2024 IDN Normal [facility] IDN Normal [facility] Laboratory - Coagulationon 0 04-11-2024 PT Coag (Bld) [Time] 20.9 s High 9.0 - 1 2.0 s [facility] No Panel Informationon 04-11 Interpretation and review of laboratory results Abnormal [facility] PROTHROMBIN TIMEon INR Coag (PPP) [Relative time] [...] Myocardial Infarction Performed By: #### Weston [id number], [id number] ####Software Writer: VELMA VALADEZ ([id number])[facility])[address] [place] [address] PT Coag (PPP) [Time] 20.9 s High 9.0-12.0 [facility] Comment on above: Performed By: #### Weston [id number], [id number] ####Software Writer: VELMA VALADEZ ([id number])[facility] ([facility])[address] [place] [address] PT Coag (Bld) [Time]on 04-11 INR Coag (PPP) [Relative time] 1.9 {INR} High 0.9 - 1.1 [facility] Comment on above: Recommended Anticoag ulant [...] Noteon 04-11-2024 Progress Note Normal [facility] Progress Note Normal [facility] Progress Note Normal [facility] Progress Note Normal [facility] aPTT Coag (Bld) [Time]on aPTT Coag (PPP) [Time] 62.7 s High 20.0 - 30.5 s [facility] Interpretation and review of laboratory results Abnormal [facility] NOTE: The therapeuti c time for Heparin anticoagulation, based on Xa activity inhibition, is an APTT of 46-80 seconds. [facility] aPTT Coag (PPP) [Time] 69.0 s High 20.0 - 30.5 s [facility] NOTE: The therapeuti c time for Heparin anticoagulation, based on Xa activity inhibition, is an APTT of 46-80 seconds. [facility] APTTon 04-10-2024 aPTT Coag (Bld) [Time] 59.0 s High 20.0-30.5 [facility] Comment on above: Result Comment: BUBBA Garcia COMMENTS:NOTE: The therapeutic time for Heparin anticoagulation, based on Xa activity inhibition, is an APTT of 46-80 seconds. Performed By: #### L [id number] ####Software Writer: VELMA VALADEZ ([id number])[facility] ([facility])[address] [place] [address] aPTT Coag (Bld) [Time] 77.3 s High 20.0-30.5 [facility] Comment on above: Result Comment: BUBBA Garcia COMMENTS:NOTE: The therapeutic time for Heparin anticoagulation, based on Xa activity inhibition, is an APTT of 46-80 seconds. Performed By: #### L [id number], [id number] ####Software Writer: VELMA VALADEZ ([id number])[facility] ([facility])[address] [place] [address] BASIC METABOLIC PANELon 03-19 Anion gap [Moles/Vol] 3 mmol/L Normal 3-[address] [facility] Comment on above: Performed By: #### L AB15 ####Software Writer: VELMA VALADEZ ([id number])[facility] ([facility])[address] [place] [address] Calcium [Mass/Vol] 9.0 mg/dL Normal 8.4-10.4 [facility] Comment on above: Performed By: #### L AB15 ####Software Writer: VELMA VALADEZ ([id number])[facility])[address] [place] [address] Chloride [Moles/Vol] 111 mmol/L High 98-107 [facility] Comment on above: Performed By: #### L AB15 ####Software Writer: VELMA [id number])[facility])[address] [place] [address] CO2 [Moles/Vol] 21 mmol/L Low 22-30 [facility] Comment on above: Performed By: #### L AB15 ####Software Writer: VELMA VALADEZ ([id number])[facility] ([facility] [place] [address] Creatinine [Mass/Vol] 1.00 mg/dL Normal 0.52-1.[address] [facility] Comment on above: Performed By: #### L AB15 ####Software Writer: VELMA VALADEZ ([id number])[facility] ([facility])[address] [place] [address] GLOMERULAR FILTRATION RATE ML/MIN/1.73 SQ M.PREDICTED 55.7 mL/min/1.73m*2 Low >60.0 [facility] Comment on above: Result Comment: Calc ulation based on the Chronic Kidney Disease Epidemiology Collaboration (CKD-EPI) equation refit without adjustment for race Performed By: #### L AB15 ####Software Writer: VELMA VALADEZ ([id number])[facility] ([facility])[address] [place] [address] Glucose [Mass/Vol] 101 mg/dL High 70-100 [facility] Comment on above: Performed By: #### L AB15 ####Software Writer: VELMA VALADEZ ([id number])[facility] ([facility])[address] [place] [address] Potassium [Moles/Vol] 3.8 mmol/L Normal 3.5-5.[address] [facility] Comment on above: Performed By: #### L AB15 ####Software Writer: VELMA VALADEZ ([id number])[facility] ([facility])[address] [place] [address] Sodium [Moles/Vol] 136 mmol/L Normal 135-145 [facility] Comment on above: Performed By: #### L AB15 ####Software Writer: VELMA VALADEZ ([id number])[facility] ([facility])[address] [place] [address] Urea nitrogen [Mass/Vol] 15 mg/dL Normal 7-17 [facility] Comment on above: Performed By: #### L AB15 ####Software Writer: VELMA VALADEZ ([id number])[facility] ([facility])[address] Basic metabolic 1998 panelon 04-10-2024 Anion gap [Moles/Vol] 3 mmol/L 3 - 13 mmol/L [facility] Calcium [Mass/Vol] 9.0 mg/dL 8.4 - 10. 4 mg/dL [facility] Chloride [Moles/Vol] 111 mmol/L High 98 - 10 7 mmol/L [facility] CO2 [Moles/Vol] 21 mmol/L Low 22 - 30 mmol/L [facility] Creatinine [Mass/Vol] 1.00 mg/dL 0.52 - 1.04 mg/dL [facility] GFR/1.73 sq M.predicted (S/P/Bld) [Vol rate/Area] 55.7 mL/min Low - PINF [facility] Comment on above: Calculation based on the Chronic Kidney Disease Epidemiology Collaboration (CKD-EPI) equation refit without adjustment for race Glucose [Mass/Vol] 101 mg/dL High 70 - 100 mg/dL [facility] Interpretation and review of laboratory results Abnormal [facility] Potassium [Moles/Vol] 3.8 mmol/L 3.5 - 5.1 mmol/L [facility] Sodium [Moles/Vol] 136 mmol/L 135 - 145 mmol/L [facility] Urea nitrogen [Mass/Vol] 15 mg/dL 7 - 17 mg/dL [facility] CARECOORDon 04-10-2024 CARECOORD Normal [facility] CBC W Auto Differential pane l (Bld)on 04-10-2024 Basophils (Bld) [#/Vol] 0.0 10*3/uL 0.0 - 0.2 10*3/uL [facility] Basophils/100 WBC (Bld) 0.7 % 0.0 - 2.0 % [facility] Eosinophils (Bld) [#/Vol] 0.1 10*3/uL 0.0 - 0.5 10*3/uL [facility] Eosinophils/100 WBC (Bld) 2.1 % 0.0 - 6.0 % [facility] Erythrocyte distribution width (RBC) [Ratio] 14.7 % 11.5 - 15.0 % [facility] Hematocrit (Bld) [Volume fraction] 26.0 % Low 35.0 - 47.0 % [facility] Hemoglobin (Bld) [Mass/Vol] 8.6 g/dL Low 11.7 - 16.0 g/dL [facility] Immature granulocytes (Bld) [#/Vol] 0.0 10*3/uL NINF - 0.1 10*3/uL [facility] Immature granulocytes/100 WBC (Bld) 0.2 % 0.0 - 2.0 % [facility] Interpretation and review of laboratory results Abnormal [facility] Lymphocytes (Bld) [#/Vol] 1.4 10*3/uL 1.0 - 4.3 10*3/uL [facility] Lymphocytes/100 WBC (Bld) 32.9 % 15.0 - 45.0 % [facility] MCH (RBC) [Entitic mass] 30.1 pg 26.0 - 34.0 pg [facility] MCHC (RBC) [Mass/Vol] 33.1 % 30.5 - 36.0 % [facility] MCV (RBC) [Entitic vol] 90.9 fL 77.0 - 99.0 fL [facility] Monocytes (Bld) [#/Vol] 0.6 10*3/uL 0.0 - 0.9 10*3/uL [facility] Monocytes/100 WBC (Bld) 13.6 % High 5.0 - 13.0 % [facility] Neutrophils (Bld) [#/Vol] 2.1 10*3/uL 1.8 - 7.5 10*3/uL [facility] Neutrophils/100 WBC (Bld) 50.5 % 38.0 - 82.0 % [facility] Nucleated RBC/100 WBC (Bld) [Ratio] 0.0 % [facility] Platelet mean volume (Bld) [Entitic vol] 10.0 fL 9.0 - 12.7 fL [facility] Platelets (Bld) [#/Vol] 238 10*3/uL 140 - 440 10*3/uL [facility] RBC (Bld) [#/Vol] 2.86 10*6/uL Low 3.80 - 5.2 0 10*6/uL [facility] WBC (Bld) [#/Vol] 4.3 10*3/uL 3.6 - 10.7 10*3/uL [facility] CBC WITH AUTO DIFFERENTIALon 04-10-2024 Basophils (Bld) [#/Vol] 0.0 10*3/uL Normal 0.0-0.2 [facility] Comment on above: Performed By: #### L [id number] ####Software Writer: VELMA VALADEZ ([id number])[facility])[address] [place] [address] Basophils/100 WBC (Bld) 0.7 % Normal 0.0-2.0 [facility] Comment on above: Performed By: #### L [id number] ####Software Writer: VELMA VALADEZ ([id number])[facility])[address] [place] [address] Eosinophils (Bld) [#/Vol] 0.1 10*3/uL Normal 0.0-0.5 [facility] Comment on above: Performed By: #### L [id number] ####Software Writer: VELMA VALADEZ ([id number])[facility])[address] [place] [address] Eosinophils/100 WBC (Bld) 2.1 % Normal 0.0-6.0 [facility] Comment on above: Performed By: #### L [id number] ####Software Writer: VELMA VALADEZ ([id number])[facility])[address] [place] [address] Erythrocyte distribution width (RBC) [Ratio] 14.7 % Normal 11.5-15.0 [facility] Comment on above: Performed By: #### L [id number] ####Software Writer: VELMA VALADEZ ([id number])[facility])[address] [place] [address] Hematocrit (Bld) [Volume fraction] 26.0 % Low 35.0-47.0 [facility] Comment on above: Performed By: #### L [id number] ####Software Writer: VELMA VALADEZ ([id number])[facility])[address] [place] [address] Hemoglobin (Bld) [Mass/Vol] 8.6 g/dL Low 11.7-16.0 [facility] Comment on above: Performed By: #### L [id number] ####Software Writer: VELMA VALADEZ ([id number])[facility])[address] [place] [address] IMMATURE GRANS % 0.2 % Normal 0.0-2.0 [facility] Comment on above: Performed By: #### L [id number] ####Software Writer: VELMA VALADEZ ([id number])[address] IMMATURE GRANS ABSOLUTE 0.0 10*3/uL Normal <0.1 [facility] Comment on above: Performed By: #### L [id number] ####Software Writer: VELMA VALADEZ ([id number])[facility])[address] [place] [address] Lymphocytes (Bld) [#/Vol] 1.4 10*3/uL Normal 1.0-4.3 [facility] Comment on above: Performed By: #### L [id number] ####Software Writer: VELMA VALADEZ ([id number])[address] Lymphocytes/100 WBC (Bld) 32.9 % Normal 15.0-45.0 [facility] Comment on above: Performed By: #### L [id number] ####Software Writer: VELMA VALADEZ ([id number])[facility])[address] [place] [address] MCH (RBC) [Entitic mass] 30.1 pg Normal 26.0-34.0 [facility] Comment on above: Performed By: #### L [id number] ####Software Writer: VELMA VALADEZ ([id number])[facility])[address] [place] [address] MCHC 33.1 % Normal 30.5-36.0 [facility] Comment on above: Performed By: #### L [id number] ####Software Writer: VELMA VALADEZ ([id number])[facility])[address] [place] [address] MCV (RBC) [Entitic vol] 90.9 fL Normal 77.0-99.0 [facility] Comment on above: Performed By: #### L [id number] ####Software Writer: VELMA VALADEZ ([id number])[facility] ([facility])[address] [place] [address] Monocytes (Bld) [#/Vol] 0.6 10*3/uL Normal 0.0-0.9 [facility] Comment on above: Performed By: #### L [id number] ####Software Writer: VELMA VALADEZ ([id number])[facility] ([facility])[address] [place] [address] Monocytes/100 WBC (Bld) 13.6 % High 5.0-13.0 [facility] Comment on above: Performed By: #### L [id number] ####Software Writer: VELMA VALADEZ ([id number])[facility] ([facility])[address] [place] [address] NEUTROPHILS ABSOLUTE 2.1 10*3/uL Normal 1.8-7.[address] [facility] Comment on above: Performed By: #### L [id number] ####Software Writer: VELMA VALADEZ ([id number])[facility] ([facility])[address] [place] [address] Neutrophils/100 WBC (Bld) 50.5 % Normal 38.0-82.0 [facility] Comment on above: Performed By: #### L [id number] ####Software Writer: VELMA VALADEZ ([id number])[facility] ([facility])[address] [place] [address] [place] NRBC 0.0 /100 WBCs Normal 0.0-2.0 [facility] Comment on above: Performed By: #### L [id number] ####Software Writer: VELMA VALADEZ ([phone])[facility])[address] [place] [address] Platelet mean volume (Bld) [Entitic vol] 10.0 fL Normal 9.0-12.7 [facility] Comment on above: Performed By: #### L [id number] ####Software Writer: VELMA VALADEZ ([id number])[facility] ([facility])[address] [place] [address] Platelets (Bld) [#/Vol] 238 10*3/uL Normal 140-440 [facility] Comment on above: Performed By: #### L [id number] ####Software Writer: VELMA VALADEZ ([id number])[facility])[address] [place] [address] RBC (Bld) [#/Vol] 2.86 10*6/uL Low 3.80-5.20 [facility] Comment on above: Performed By: #### L [id number] ####Software Writer: VELMA VALADEZ ([id number])[facility])[address] [place] [address] WBC (Bld) [#/Vol] 4.3 10*3/uL Normal 3.6-10.7 [facility] Comment on above: Performed By: #### L [id number] ####Software Writer: VELMA VALADEZ ([id number])[facility])[address] [place] [address] IDNon 04-10-2024 IDN Normal [facility] Laboratory - Coagulationon 0 04-10-2024 PT Coag (Bld) [Time] 17.7 s High 9.0 - 1 2.0 s [facility] No Panel Informationon 04-10 Interpretation and review of laboratory results Abnormal [facility] PROTHROMBIN TIMEon INR Coag (PPP) [Relative time] [...] Myocardial Infarction Performed By: #### Weston AB325, [id number] ####Software Writer: VELMA VALADEZ ([id number])[facility] ([facility])[address] [place] [address] PT Coag (PPP) [Time] 17.7 s High 9.0-12.0 [facility] Comment on above: Performed By: #### Weston AB325, [id number] ####Software Writer: VELMA VALADEZ ([id number])[facility] ([facility])[address] [place] [address] PT Coag (Bld) [Time]on 04-10 INR Coag (PPP) [Relative time] 1.6 {INR} High 0.9 - 1.1 [facility] Comment on above: Recommended Anticoag ulant [...] Noteon 04-10-2024 Progress Note Normal [facility] Progress Note Nutrition update completed. Chart reviewed. Patient to be monitored and followed by the diet air analysis technician. FADI Farrar Normal [facility] Progress Note Normal [facility] aPTT Coag (Bld) [Time]on aPTT Coag (PPP) [Time] 59.0 s High 20.0 - 30.5 s [facility] Interpretation and review of laboratory results Abnormal [facility] NOTE: The therapeuti c time for Heparin anticoagulation, based on Xa activity inhibition, is an APTT of 46-80 seconds. [facility] aPTT Coag (PPP) [Time] 77.3 s High 20.0 - 30.5 s [facility] NOTE: The therapeuti c time for Heparin anticoagulation, based on Xa activity inhibition, is an APTT of 46-80 seconds. [facility] APTTon 04-09-2024 aPTT Coag (Bld) [Time] 58.9 s High 20.0-30.5 [facility] Comment on above: Result Comment: BUBBA R COMMENTS:NOTE: The therapeutic time for Heparin anticoagulation, based on Xa activity inhibition, is an APTT of 46-80 seconds. Performed By: #### L [id number] ####Software Writer: VELMA VALADEZ ([id number])[address] aPTT Coag (Bld) [Time] 64.6 s High 20.0-30.5 [facility] Comment on above: Result Comment: BUBBA Garcia COMMENTS:NOTE: The therapeutic time for Heparin anticoagulation, based on Xa activity inhibition, is an APTT of 46-80 seconds. Performed By: #### L [id number] ####Software Writer: VELMA VALADEZ ([id number])[address] aPTT Coag (Bld) [Time] 82.3 s High 20.0-30.5 [facility] Comment on above: Result Comment: BUBBA Garcia COMMENTS:NOTE: The therapeutic time for Heparin anticoagulation, based on Xa activity inhibition, is an APTT of 46-80 seconds. Performed By: #### L [id number], [id number] ####Software Writer: VELMA VALADEZ ([id number])[address] BASIC METABOLIC PANELon - Anion gap [Moles/Vol] 5 mmol/L Normal 3-[address] [facility] Comment on above: Performed By: #### L AB15 ####Software Writer: VELMA VALADEZ ([id number])[facility] ([facility] [place] [address] Calcium [Mass/Vol] 8.9 mg/dL Normal 8.4-10.4 [facility] Comment on above: Performed By: #### L AB15 ####Software Writer: VELMA VALADEZ ([id number])[facility] ([facility] [place] [address] [place] Chloride [Moles/Vol] 116 mmol/L High 98-107 [facility] Comment on above: Performed By: #### L AB15 ####Software Writer: VELMA VALADEZ ([id number])[facility] ([facility])[address] [place] [address] CO2 [Moles/Vol] 16 mmol/L Low 22-30 [facility] Comment on above: Performed By: #### L AB15 ####Software Writer: VELMA VALADEZ ([id number])[facility] ([facility])[address] [place] [address] Creatinine [Mass/Vol] 0.93 mg/dL Normal 0.52-1.[address] [facility] Comment on above: Performed By: #### L AB15 ####Software Writer: VELMA VALADEZ ([id number])[facility] ([facility])[address] [place] [address] [place] GLOMERULAR FILTRATION RATE ML/MIN/1.73 SQ M.PREDICTED 60.7 mL/min/1.73m*2 Normal >60.0 [facility] Comment on above: Result Comment: Calc ulation based on the Chronic Kidney Disease Epidemiology Collaboration (CKD-EPI) equation refit without adjustment for race Performed By: #### L AB15 ####Software Writer: VELMA VALADEZ ([id number])[facility] ([facility])[address] [place] [address] [place] Glucose [Mass/Vol] 119 mg/dL High 70-100 [facility] Center Comment on above: Performed By: #### L [id number] ####Software Writer: VELMA VALADEZ ([id number])[facility] ([facility])[address] [place] [address] Potassium [Moles/Vol] 4.4 mmol/L Normal 3.5-5.[address] [facility] Comment on above: Performed By: #### L [id number] ####Software Writer: VELMA VALADEZ ([id number])[facility] ([facility])[address] [place] [address] Sodium [Moles/Vol] 136 mmol/L Normal 135-145 [facility] Comment on above: Performed By: #### L [id number] ####Software Writer: VELMA VALADEZ ([id number])[facility] ([facility])[address] [place] [address] Urea nitrogen [Mass/Vol] 16 mg/dL Normal 7-17 [facility] Comment on above: Performed By: #### L [id number] ####Software Writer: VELMA VALADEZ ([id number])[facility] ([facility])[address] [place] [address] Basic metabolic 1998 panelon 04-09-2024 Anion gap [Moles/Vol] 5 mmol/L 3 - 13 mmol/L [facility] Calcium [Mass/Vol] 8.9 mg/dL 8.4 - 10. 4 mg/dL [facility] Chloride [Moles/Vol] 116 mmol/L High 98 - 10 7 mmol/L [facility] CO2 [Moles/Vol] 16 mmol/L Low 22 - 30 mmol/L [facility] Creatinine [Mass/Vol] 0.93 mg/dL 0.52 - 1.04 mg/dL [facility] GFR/1.73 sq M.predicted (S/P/Bld) [Vol rate/Area] 60.7 mL/min - PINF [facility] Comment on above: Calculation based on the Chronic Kidney Disease Epidemiology Collaboration (CKD-EPI) equation refit without adjustment for race Glucose [Mass/Vol] 119 mg/dL High 70 - 100 mg/dL [facility] Interpretation and review of laboratory results Abnormal [facility] Potassium [Moles/Vol] 4.4 mmol/L 3.5 - 5.1 mmol/L [facility] Sodium [Moles/Vol] 136 mmol/L 135 - 145 mmol/L [facility] Urea nitrogen [Mass/Vol] 16 mg/dL 7 - 17 mg/dL [facility] CARECOORDon 04-09-2024 CARECOORD Normal [facility] CBC W Auto Differential pane l (Bld)on 04-09-2024 Basophils (Bld) [#/Vol] 0.0 10*3/uL 0.0 - 0.2 10*3/uL [facility] Basophils/100 WBC (Bld) 0.6 % 0.0 - 2.0 % [facility] Eosinophils (Bld) [#/Vol] 0.1 10*3/uL 0.0 - 0.5 10*3/uL [facility] Eosinophils/100 WBC (Bld) 0.9 % 0.0 - 6.0 % [facility] Erythrocyte distribution width (RBC) [Ratio] 14.8 % 11.5 - 15.0 % [facility] Hematocrit (Bld) [Volume fraction] 28.2 % Low 35.0 - 47.0 % [facility] Hemoglobin (Bld) [Mass/Vol] 9.0 g/dL Low 11.7 - 16.0 g/dL [facility] Immature granulocytes (Bld) [#/Vol] 0.0 10*3/uL NINF - 0.1 10*3/uL [facility] Immature granulocytes/100 WBC (Bld) 0.4 % 0.0 - 2.0 % [facility] Interpretation and review of laboratory results Abnormal [facility] Lymphocytes (Bld) [#/Vol] 2.2 10*3/uL 1.0 - 4.3 10*3/uL [facility] Lymphocytes/100 WBC (Bld) 31.2 % 15.0 - 45.0 % [facility] MCH (RBC) [Entitic mass] 29.8 pg 26.0 - 34.0 pg [facility] MCHC (RBC) [Mass/Vol] 31.9 % 30.5 - 36.0 % [facility] MCV (RBC) [Entitic vol] 93.4 fL 77.0 - 99.0 fL [facility] Monocytes (Bld) [#/Vol] 0.7 10*3/uL 0.0 - 0.9 10*3/uL [facility] Monocytes/100 WBC (Bld) 10.7 % 5.0 - 13.0 % [facility] Neutrophils (Bld) [#/Vol] 3.9 10*3/uL 1.8 - 7.5 10*3/uL [facility] Neutrophils/100 WBC (Bld) 56.2 % 38.0 - 82.0 % [facility] Nucleated RBC/100 WBC (Bld) [Ratio] 0.0 % [facility] Platelet mean volume (Bld) [Entitic vol] 10.2 fL 9.0 - 12.7 fL [facility] Platelets (Bld) [#/Vol] 235 10*3/uL 140 - 440 10*3/uL [facility] RBC (Bld) [#/Vol] 3.02 10*6/uL Low 3.80 - 5.2 0 10*6/uL [facility] WBC (Bld) [#/Vol] 6.9 10*3/uL 3.6 - 10.7 10*3/uL [facility] CBC WITH AUTO DIFFERENTIALon 04-09-2024 Basophils (Bld) [#/Vol] 0.0 10*3/uL Normal 0.0-0.2 [facility] Comment on above: Performed By: #### L [id number] ####Software Writer: VELMA VALADEZ ([id number])[address] Basophils/100 WBC (Bld) 0.6 % Normal 0.0-2.0 [facility] Comment on above: Performed By: #### L [id number] ####Software Writer: VELMA VALADEZ ([id number])[facility] ([facility])[address] [place] [address] Eosinophils (Bld) [#/Vol] 0.1 10*3/uL Normal 0.0-0.5 [facility] Comment on above: Performed By: #### L [id number] ####Software Writer: VELMA VALADEZ ([id number])[facility])[address] [place] [address] Eosinophils/100 WBC (Bld) 0.9 % Normal 0.0-6.0 [facility] Comment on above: Performed By: #### L [id number] ####Software Writer: VELMA VALADEZ ([id number])[address] Erythrocyte distribution width (RBC) [Ratio] 14.8 % Normal 11.5-15.0 [facility] Comment on above: Performed By: #### L [id number] ####Software Writer: VELMA VALADEZ ([id number])[facility])[address] [place] [address] Hematocrit (Bld) [Volume fraction] 28.2 % Low 35.0-47.0 [facility] Comment on above: Performed By: #### L [id number] ####Software Writer: VELMA VALADEZ ([id number])[address] Hemoglobin (Bld) [Mass/Vol] 9.0 g/dL Low 11.7-16.0 [facility] Comment on above: Performed By: #### L [id number] ####Software Writer: VELMA VALADEZ ([id number])[facility])[address] [place] [address] IMMATURE GRANS % 0.4 % Normal 0.0-2.0 [facility] Comment on above: Performed By: #### L [id number] ####Software Writer: VELMA VALADEZ ([id number])[address] IMMATURE GRANS ABSOLUTE 0.0 10*3/uL Normal <0.1 [facility] Comment on above: Performed By: #### L [id number] ####Software Writer: VELMA VALADEZ ([id number])[address] Lymphocytes (Bld) [#/Vol] 2.2 10*3/uL Normal 1.0-4.3 [facility] Comment on above: Performed By: #### L [id number] ####Software Writer: VELMA VALADEZ ([phone])[facility])[address] [place] [address] Lymphocytes/100 WBC (Bld) 31.2 % Normal 15.0-45.0 [facility] Comment on above: Performed By: #### L [id number] ####Software Writer: VELMA VALADEZ ([id number])[facility])[address] [place] [address] MCH (RBC) [Entitic mass] 29.8 pg Normal 26.0-34.0 [facility] Comment on above: Performed By: #### L [id number] ####Software Writer: VELMA VALADEZ ([id number])[facility])[address] [place] [address] MCHC 31.9 % Normal 30.5-36.0 [facility] Comment on above: Performed By: #### L [id number] ####Software Writer: VELMA VALADEZ ([id number])[facility])[address] [place] [address] MCV (RBC) [Entitic vol] 93.4 fL Normal 77.0-99.0 [facility] Comment on above: Performed By: #### L [id number] ####Software Writer: VELMA VALADEZ ([id number])[facility])[address] [place] [address] Monocytes (Bld) [#/Vol] 0.7 10*3/uL Normal 0.0-0.9 [facility] Comment on above: Performed By: #### L [id number] ####Software Writer: VELMA VALADEZ ([id number])[facility])[address] [place] [address] Monocytes/100 WBC (Bld) 10.7 % Normal 5.0-13.0 [facility] Comment on above: Performed By: #### L [id number] ####Software Writer: VELMA VALADEZ ([id number])[facility])[address] [place] [address] NEUTROPHILS ABSOLUTE 3.9 10*3/uL Normal 1.8-7.[address] [facility] Comment on above: Performed By: #### L [id number] ####Software Writer: VELMA VALADEZ ([id number])[facility] ([facility])[address] [place] [address] Neutrophils/100 WBC (Bld) 56.2 % Normal 38.0-82.0 [facility] Comment on above: Performed By: #### L [id number] ####Software Writer: VELMA VALADEZ ([id number])[facility] ([facility])[address] [place] [address] NRBC 0.0 /100 WBCs Normal 0.0-2.0 [facility] Comment on above: Performed By: #### L [id number] ####Software Writer: VELMA VALADEZ ([id number])[facility] ([facility])[address] [place] [address] Platelet mean volume (Bld) [Entitic vol] 10.2 fL Normal 9.0-12.7 [facility] Comment on above: Performed By: #### L [id number] ####Software Writer: VELMA VALADEZ ([id number])[facility] ([facility])[address] [place] [address] [place] Platelets (Bld) [#/Vol] 235 10*3/uL Normal 140-440 [facility] Comment on above: Performed By: #### L [id number] ####Software Writer: VELMA VALADEZ ([id number])[facility] ([facility])[address] [place] [address] [place] RBC (Bld) [#/Vol] 3.02 10*6/uL Low 3.80-5.20 [facility] Comment on above: Performed By: #### L [id number] ####Software Writer: VELMA VALADEZ ([id number])[facility] ([facility])[address] [place] [address] [place] WBC (Bld) [#/Vol] 6.9 10*3/uL Normal 3.6-10.7 [facility] Comment on above: Performed By: #### Weston [id number] ####Software Writer: VELMA VALADEZ ([id number])[facility])[address] [place] [address] Laboratory - Coagulationon 0 04-09-2024 PT Coag (Bld) [Time] 13.8 s High 9.0 - 1 2.0 s [facility] No Panel Informationon 04-09 Interpretation and review of laboratory results Abnormal [facility] PROTHROMBIN TIMEon INR Coag (PPP) [Relative time] [...] Myocardial Infarction Performed By: #### Weston [id number], [id number] ####Software Writer: VELMA VALADEZ ([id number])[facility])[address] [place] [address] PT Coag (PPP) [Time] 13.8 s High 9.0-12.0 [facility] Comment on above: Performed By: #### L [id number], [id number] ####Software Writer: VELMA VALADEZ ([phone])[facility])[address] [place] [address] PT Coag (Bld) [Time]on 04-09 INR Coag (PPP) [Relative time] 1.2 {INR} High 0.9 - 1.1 [facility] Comment on above: Recommended Anticoag ulant [...] Noteon 04-09-2024 Progress Note Normal [facility] Progress Note Normal [facility] XR CHEST 1 VIEWon 04-09-2024 XR [facility]ST 1 [facility] XR Chest Single viewon 04-09 Mild cardiomegaly and pulmonary venous congestion with small pleural effusions. Report Dictated on Electronically Signed By: Di Leggett MD Electronically Signed Date/Time: 04/09/2024 1:42 PM EDT [facility] Patient Name: MEL CARVER RD : [...] the left shoulder. No acute osseous findings. [facility] Di Leggett M D - 04/09/2024 Patient [...] Electronically Signed Date/Time: 04/09/2024 1:42 PM EDT [facility] Radiology Study observation (narrative) [facility] alth XR Chest Single viewOrdered By: Di Leggett on 04-09-2024 [facility] Work Phone: aPTT Coag (Bld) [Time]on aPTT Coag (PPP) [Time] 58.9 s High 20.0 - 30.5 s [facility] Interpretation and review of laboratory results Abnormal [facility] NOTE: The therapeuti c time for Heparin anticoagulation, based on Xa activity inhibition, is an APTT of 46-80 seconds. [facility] aPTT Coag (PPP) [Time] 64.6 s High 20.0 - 30.5 s [facility] Interpretation and review of laboratory results Abnormal [facility] NOTE: The therapeuti c time for Heparin anticoagulation, based on Xa activity inhibition, is an APTT of 46-80 seconds. [facility] aPTT Coag (PPP) [Time] 82.3 s High 20.0 - 30.5 s [facility] NOTE: The therapeuti c time for Heparin anticoagulation, based on Xa activity inhibition, is an APTT of 46-80 seconds. [facility] APTTon 04-08-2024 aPTT Coag (Bld) [Time] 51.5 s High 20.0-30.5 [facility] Comment on above: Result Comment: BUBBA Garcia COMMENTS:NOTE: The therapeutic time for Heparin anticoagulation, based on Xa activity inhibition, is an APTT of 46-80 seconds. Performed By: #### L [id number] ####Software Writer: VELMA VALADEZ ([id number])[facility] ([facility] aPTT Coag (Bld) [Time] 59.8 s High 20.0-30.5 [facility] Comment on above: Result Comment: BUBBA Garcia COMMENTS:NOTE: The therapeutic time for Heparin anticoagulation, based on Xa activity inhibition, is an APTT of 46-80 seconds. Performed By: #### L [id number] ####Software Writer: VELMA VALADEZ ([id number])[facility] ([facility])[address] [place] [address] aPTT Coag (Bld) [Time] 41.4 s High 20.0-30.5 [facility] Comment on above: Result Comment: BUBBA Garcia COMMENTS:NOTE: The therapeutic time for Heparin anticoagulation, based on Xa activity inhibition, is an APTT of 46-80 seconds. Performed By: #### L [id number], [id number] ####Software Writer: VELMA VALADEZ ([phone])[facility] ([facility])[address] [place] [address] BASIC METABOLIC PANELon 09-2 Anion gap [Moles/Vol] 5 mmol/L Normal 3-[address] [facility] Comment on above: Performed By: #### L AB15 ####Software Writer: VELMA VALADEZ ([id number])[facility] ([facility])[address] [place] [address] Calcium [Mass/Vol] 8.9 mg/dL Normal 8.4-10.4 [facility] Comment on above: Performed By: #### L AB15 ####Software Writer: VELMA VALADEZ ([id number])[facility] ([facility])[address] [place] [address] Chloride [Moles/Vol] 113 mmol/L High 98-107 [facility] Comment on above: Performed By: #### L AB15 ####Software Writer: VELMA VALADEZ ([id number])[facility] ([facility])[address] [place] [address] CO2 [Moles/Vol] 17 mmol/L Low 22-30 [facility] Comment on above: Performed By: #### L AB15 ####Software Writer: VELMA [id number])[facility] ([facility] [place] [address] Creatinine [Mass/Vol] 0.98 mg/dL Normal 0.52-1.[address] [facility] Comment on above: Performed By: #### L AB15 ####Software Writer: VELMA VALADEZ ([id number])[facility] ([facility])[address] [place] [address] [place] GLOMERULAR FILTRATION RATE ML/MIN/1.73 SQ M.PREDICTED 57.0 mL/min/1.73m*2 Low >60.0 [facility] Comment on above: Result Comment: Calc ulation based on the Chronic Kidney Disease Epidemiology Collaboration (CKD-EPI) equation refit without adjustment for race Performed By: #### L AB15 ####Software Writer: VELMA VALADEZ ([id number])[facility] ([facility])[address] [place] [address] Glucose [Mass/Vol] 116 mg/dL High 70-100 [facility] Comment on above: Performed By: #### L AB15 ####Software Writer: VELMA VALADEZ ([id number])[facility] ([facility])[address] [place] [address] Potassium [Moles/Vol] 4.5 mmol/L Normal 3.5-5.[address] [facility] Comment on above: Performed By: #### L AB15 ####Software Writer: VELMA VALADEZ ([phone])[facility] ([facility])[address] [place] [address] [place] Sodium [Moles/Vol] 135 mmol/L Normal 135-145 [facility] Comment on above: Performed By: #### L AB15 ####Software Writer: VELMA VALADEZ ([id number])[facility] ([facility])[address] [place] [address] [place] Urea nitrogen [Mass/Vol] 18 mg/dL High 7-17 [facility] Comment on above: Performed By: #### L AB15 ####Software Writer: VELMA VALADEZ ([id number])[facility] ([facility])[address] [place] [address] Basic metabolic 1998 panelon 04-08-2024 Anion gap [Moles/Vol] 5 mmol/L 3 - 13 mmol/L [facility] Calcium [Mass/Vol] 8.9 mg/dL 8.4 - 10. 4 mg/dL [facility] Chloride [Moles/Vol] 113 mmol/L High 98 - 10 7 mmol/L [facility] CO2 [Moles/Vol] 17 mmol/L Low 22 - 30 mmol/L [facility] Creatinine [Mass/Vol] 0.98 mg/dL 0.52 - 1.04 mg/dL [facility] GFR/1.73 sq M.predicted (S/P/Bld) [Vol rate/Area] 57.0 mL/min Low - PINF [facility] Comment on above: Calculation based on the Chronic Kidney Disease Epidemiology Collaboration (CKD-EPI) equation refit without adjustment for race Glucose [Mass/Vol] 116 mg/dL High 70 - 100 mg/dL [facility] Interpretation and review of laboratory results Abnormal [facility] Potassium [Moles/Vol] 4.5 mmol/L 3.5 - 5.1 mmol/L [facility] Sodium [Moles/Vol] 135 mmol/L 135 - 145 mmol/L [facility] Urea nitrogen [Mass/Vol] 18 mg/dL High 7 - 17 mg/dL [facility] CBC W Auto Differential pane l (Bld)on 04-08-2024 Basophils (Bld) [#/Vol] 0.0 10*3/uL 0.0 - 0.2 10*3/uL [facility] Basophils/100 WBC (Bld) 0.5 % 0.0 - 2.0 % [facility] Eosinophils (Bld) [#/Vol] 0.1 10*3/uL 0.0 - 0.5 10*3/uL [facility] Eosinophils/100 WBC (Bld) 0.9 % 0.0 - 6.0 % [facility] Erythrocyte distribution width (RBC) [Ratio] 14.8 % 11.5 - 15.0 % [facility] Hematocrit (Bld) [Volume fraction] 27.0 % Low 35.0 - 47.0 % [facility] Hemoglobin (Bld) [Mass/Vol] 8.6 g/dL Low 11.7 - 16.0 g/dL [facility] Immature granulocytes (Bld) [#/Vol] 0.0 10*3/uL NINF - 0.1 10*3/uL [facility] [employer] Immature granulocytes/100 WBC (Bld) 0.4 % 0.0 - 2.0 % [facility] Interpretation and review of laboratory results Abnormal [facility] Lymphocytes (Bld) [#/Vol] 1.7 10*3/uL 1.0 - 4.3 10*3/uL [facility] Lymphocytes/100 WBC (Bld) 23.3 % 15.0 - 45.0 % [facility] MCH (RBC) [Entitic mass] 30.2 pg 26.0 - 34.0 pg [facility] MCHC (RBC) [Mass/Vol] 31.9 % 30.5 - 36.0 % [facility] MCV (RBC) [Entitic vol] 94.7 fL 77.0 - 99.0 fL [facility] Monocytes (Bld) [#/Vol] 0.8 10*3/uL 0.0 - 0.9 10*3/uL [facility] Monocytes/100 WBC (Bld) 10.2 % 5.0 - 13.0 % [facility] Neutrophils (Bld) [#/Vol] 4.8 10*3/uL 1.8 - 7.5 10*3/uL [facility] Neutrophils/100 WBC (Bld) 64.7 % 38.0 - 82.0 % [facility] Nucleated RBC/100 WBC (Bld) [Ratio] 0.0 % [facility] Platelet mean volume (Bld) [Entitic vol] 10.1 fL 9.0 - 12.7 fL [facility] Platelets (Bld) [#/Vol] 223 10*3/uL 140 - 440 10*3/uL [facility] RBC (Bld) [#/Vol] 2.85 10*6/uL Low 3.80 - 5.2 0 10*6/uL [facility] WBC (Bld) [#/Vol] 7.5 10*3/uL 3.6 - 10.7 10*3/uL [facility] CBC WITH AUTO DIFFERENTIALon 04-08-2024 Basophils (Bld) [#/Vol] 0.0 10*3/uL Normal 0.0-0.2 [facility] Comment on above: Performed By: #### L [id number] ####Software Writer: VELMA VALADEZ ([id number])[facility])[address] [place] [address] Basophils/100 WBC (Bld) 0.5 % Normal 0.0-2.0 [facility] Comment on above: Performed By: #### L [id number] ####Software Writer: VELMA VALADEZ ([id number])[facility])[address] [place] [address] Eosinophils (Bld) [#/Vol] 0.1 10*3/uL Normal 0.0-0.5 [facility] Comment on above: Performed By: #### L [id number] ####Software Writer: VELMA VALADEZ ([id number])[facility])[address] [place] [address] Eosinophils/100 WBC (Bld) 0.9 % Normal 0.0-6.0 [facility] Comment on above: Performed By: #### L [id number] ####Software Writer: VELMA VALADEZ ([id number])[facility])[address] [place] [address] Erythrocyte distribution width (RBC) [Ratio] 14.8 % Normal 11.5-15.0 [facility] Comment on above: Performed By: #### L [id number] ####Software Writer: VELMA VALADEZ ([id number])[facility])[address] [place] [address] Hematocrit (Bld) [Volume fraction] 27.0 % Low 35.0-47.0 [facility] Comment on above: Performed By: #### L [id number] ####Software Writer: VELMA VALADEZ ([id number])[facility])[address] [place] [address] Hemoglobin (Bld) [Mass/Vol] 8.6 g/dL Low 11.7-16.0 [facility] Comment on above: Performed By: #### L [id number] ####Software Writer: VELMA VALADEZ ([id number])[facility] ([facility])[address] [place] [address] IMMATURE GRANS % 0.4 % Normal 0.0-2.0 [facility] Comment on above: Performed By: #### L [id number] ####Software Writer: VELMA VALADEZ ([id number])[facility])[address] [place] [address] IMMATURE GRANS ABSOLUTE 0.0 10*3/uL Normal <0.1 [facility] Comment on above: Performed By: #### L [id number] ####Software Writer: VELMA VALADEZ ([id number])[facility])[address] [place] [address] Lymphocytes (Bld) [#/Vol] 1.7 10*3/uL Normal 1.0-4.3 [facility] Comment on above: Performed By: #### L [id number] ####Software Writer: VELMA VALADEZ ([id number])[facility])[address] [place] [address] Lymphocytes/100 WBC (Bld) 23.3 % Normal 15.0-45.0 [facility] Comment on above: Performed By: #### L [id number] ####Software Writer: VELMA VALADEZ ([id number])[facility])[address] [place] [address] MCH (RBC) [Entitic mass] 30.2 pg Normal 26.0-34.0 [facility] Comment on above: Performed By: #### L [id number] ####Software Writer: VELMA VALADEZ ([id number])[facility])[address] [place] [address] MCHC 31.9 % Normal 30.5-36.0 [facility] Comment on above: Performed By: #### L [id number] ####Software Writer: VELMA VALADEZ ([id number])[facility])[address] [place] [address] MCV (RBC) [Entitic vol] 94.7 fL Normal 77.0-99.0 [facility] Comment on above: Performed By: #### L [id number] ####Software Writer: VELMA VALADEZ ([id number])[facility] ([facility])[address] [place] [address] Monocytes (Bld) [#/Vol] 0.8 10*3/uL Normal 0.0-0.9 [facility] Comment on above: Performed By: #### L [id number] ####Software Writer: VELMA VALADEZ ([id number])[facility] ([facility])[address] [place] [address] Monocytes/100 WBC (Bld) 10.2 % Normal 5.0-13.0 [facility] Comment on above: Performed By: #### L [id number] ####Software Writer: VELMA VALADEZ ([id number])[facility] ([facility])[address] [place] [address] NEUTROPHILS ABSOLUTE 4.8 10*3/uL Normal 1.8-7.[address] [facility] Comment on above: Performed By: #### L [id number] ####Software Writer: VELMA VALADEZ ([id number])[facility] ([facility])[address] [place] [address] Neutrophils/100 WBC (Bld) 64.7 % Normal 38.0-82.0 [facility] Comment on above: Performed By: #### L [id number] ####Software Writer: VELMA VALADEZ ([id number])[facility] ([facility])[address] [place] [address] NRBC 0.0 /100 WBCs Normal 0.0-2.0 [facility] Comment on above: Performed By: #### L [id number] ####Software Writer: VELMA VALADEZ ([phone])[facility])[address] [place] [address] Platelet mean volume (Bld) [Entitic vol] 10.1 fL Normal 9.0-12.7 [facility] Comment on above: Performed By: #### L [id number] ####Software Writer: VELMA VALADEZ ([phone])[facility] ([facility])[address] [place] [address] Platelets (Bld) [#/Vol] 223 10*3/uL Normal 140-440 [facility] Comment on above: Performed By: #### L [id number] ####Software Writer: VELMA VALADEZ ([id number])[facility] ([facility])[address] [place] [address] RBC (Bld) [#/Vol] 2.85 10*6/uL Low 3.80-5.20 [facility] Comment on above: Performed By: #### L [id number] ####Software Writer: VELMA VALADEZ ([id number])[facility] ([facility])[address] [place] [address] WBC (Bld) [#/Vol] 7.5 10*3/uL Normal 3.6-10.7 [facility] Comment on above: Performed By: #### L [id number] ####Software Writer: VELMA VALADEZ ([id number])[facility] ([facility])[address] [place] [address] IDNon 04-08-2024 IDN Progressing Normal [facility] Laboratory - Coagulationon 0 04-08-2024 PT Coag (Bld) [Time] 11.2 s 9.0 - 1 2.0 s [facility] No Panel Informationon 04-08 [facility] PROTHROMBIN TIMEon INR Coag (PPP) [Relative [...] Myocardial Infarction Performed By: #### L [id number], [id number] ####Software Writer: VELMA VALADEZ ([id number])[facility] ([facility])[address] [place] [address] PT Coag (PPP) [Time] 11.2 s Normal 9.0-12.0 [facility] Comment on above: Performed By: #### L [id number], [id number] ####Software Writer: VELMA VALADEZ ([id number])[facility] ([facility])[address] [place] [address] PT Coag (Bld) [Time]on 04-08 INR Coag (PPP) [Relative time] 1.0 {INR} 0.9 - 1.1 [facility] Comment on above: Recommended Anticoag ulant [...] Interpretation and review of laboratory results Normal [facility] Progress Noteon 04-08-2024 Progress Note Normal [facility] Progress Note Normal [facility] aPTT Coag (Bld) [Time]on aPTT Coag (PPP) [Time] 51.5 s High 20.0 - 30.5 s [facility] Interpretation and review of laboratory results Abnormal [facility] NOTE: The therapeuti c time for Heparin anticoagulation, based on Xa activity inhibition, is an APTT of 46-80 seconds. [facility] aPTT Coag (PPP) [Time] 59.8 s High 20.0 - 30.5 s [facility] Interpretation and review of laboratory results Abnormal [facility] NOTE: The therapeuti c time for Heparin anticoagulation, based on Xa activity inhibition, is an APTT of 46-80 seconds. [facility] aPTT Coag (PPP) [Time] 41.4 s High 20.0 - 30.5 s [facility] Interpretation and review of laboratory results Abnormal [facility] NOTE: The therapeuti c time for Heparin anticoagulation, based on Xa activity inhibition, is an APTT of 46-80 seconds. [facility] APTTon 04-07-2024 aPTT Coag (Bld) [Time] 54.7 s High 20.0-30.5 [facility] Comment on above: Result Comment: BUBBA Garcia COMMENTS:NOTE: The therapeutic time for Heparin anticoagulation, based on Xa activity inhibition, is an APTT of 46-80 seconds. Performed By: #### L [id number] ####Software Writer: VELMA VALADEZ ([id number])[facility])[address] [place] [address] aPTT Coag (Bld) [Time] 77.7 s High 20.0-30.5 [facility] Comment on above: Result Comment: BUBBA Garcia COMMENTS:NOTE: The therapeutic time for Heparin anticoagulation, based on Xa activity inhibition, is an APTT of 46-80 seconds. Performed By: #### L [id number], [id number] ####Software Writer: VELMA VALADEZ ([id number])[facility])[address] [place] [address] BASIC METABOLIC PANELon 03-19 Anion gap [Moles/Vol] 4 mmol/L Normal 3-[address] [facility] Comment on above: Performed By: #### L AB15 ####Software Writer: VELMA VALADEZ ([id number])[facility] ([facility])[address] [place] [address] Calcium [Mass/Vol] 8.8 mg/dL Normal 8.4-10.4 [facility] Comment on above: Performed By: #### L AB15 ####Software Writer: VELMA [id number])[facility])[address] [place] [address] Chloride [Moles/Vol] 115 mmol/L High 98-107 [facility] Comment on above: Performed By: #### L AB15 ####Software Writer: VELMA [id number])[facility] ([facility] [place] [address] [place] CO2 [Moles/Vol] 17 mmol/L Low 22-30 [facility] Comment on above: Performed By: #### L AB15 ####Software Writer: VELMA VALADEZ ([id number])[facility] ([facility])[address] [place] [address] Creatinine [Mass/Vol] 0.90 mg/dL Normal 0.52-1.[address] [facility] Comment on above: Performed By: #### L AB15 ####Software Writer: VELMA VALADEZ ([id number])[facility])[address] [place] [address] GLOMERULAR FILTRATION RATE ML/MIN/1.73 SQ M.PREDICTED 63.2 mL/min/1.73m*2 Normal >60.0 [facility] Comment on above: Result Comment: Calc ulation based on the Chronic Kidney Disease Epidemiology Collaboration (CKD-EPI) equation refit without adjustment for race Performed By: #### L AB15 ####Software Writer: VELMA VALADEZ ([id number])[facility] ([facility])[address] [place] [address] Glucose [Mass/Vol] 139 mg/dL High 70-100 [facility] Comment on above: Performed By: #### L AB15 ####Software Writer: VELMA VALADEZ ([id number])[facility] ([facility])[address] [place] [address] [place] Potassium [Moles/Vol] 4.7 mmol/L Normal 3.5-5.[address] [facility] Comment on above: Performed By: #### L AB15 ####Software Writer: VELMA VALADEZ ([id number])[facility])[address] [place] [address] Sodium [Moles/Vol] 136 mmol/L Normal 135-145 [facility] Comment on above: Performed By: #### L AB15 ####Software Writer: VELMA VALADEZ ([id number])[facility] ([facility])[address] [place] [address] Urea nitrogen [Mass/Vol] 16 mg/dL Normal 7-17 [facility] Comment on above: Performed By: #### L AB15 ####Software Writer: VELMA VALADEZ ([id number])[facility] ([facility])[address] [place] [address] Basic metabolic 1998 panelon 04-07-2024 Anion gap [Moles/Vol] 4 mmol/L 3 - 13 mmol/L [facility] Calcium [Mass/Vol] 8.8 mg/dL 8.4 - 10. 4 mg/dL [facility] Chloride [Moles/Vol] 115 mmol/L High 98 - 10 7 mmol/L [facility] CO2 [Moles/Vol] 17 mmol/L Low 22 - 30 mmol/L [facility] Creatinine [Mass/Vol] 0.90 mg/dL 0.52 - 1.04 mg/dL [facility] GFR/1.73 sq M.predicted (S/P/Bld) [Vol rate/Area] 63.2 mL/min - PINF [facility] Comment on above: Calculation based on the Chronic Kidney Disease Epidemiology Collaboration (CKD-EPI) equation refit without adjustment for race Glucose [Mass/Vol] 139 mg/dL High 70 - 100 mg/dL [facility] Interpretation and review of laboratory results Abnormal [facility] Potassium [Moles/Vol] 4.7 mmol/L 3.5 - 5.1 mmol/L [facility] Sodium [Moles/Vol] 136 mmol/L 135 - 145 mmol/L [facility] Urea nitrogen [Mass/Vol] 16 mg/dL 7 - 17 mg/dL [facility] CBC W Auto Differential pane l (Bld)on 04-07-2024 Basophils (Bld) [#/Vol] 0.0 10*3/uL 0.0 - 0.2 10*3/uL [facility] Basophils/100 WBC (Bld) 0.2 % 0.0 - 2.0 % [facility] Eosinophils (Bld) [#/Vol] 0.0 10*3/uL 0.0 - 0.5 10*3/uL [facility] Eosinophils/100 WBC (Bld) 0.0 % 0.0 - 6.0 % [facility] Erythrocyte distribution width (RBC) [Ratio] 14.3 % 11.5 - 15.0 % [facility] Hematocrit (Bld) [Volume fraction] 27.0 % Low 35.0 - 47.0 % [facility] Hemoglobin (Bld) [Mass/Vol] 8.6 g/dL Low 11.7 - 16.0 g/dL [facility] Immature granulocytes (Bld) [#/Vol] 0.0 10*3/uL NINF - 0.1 10*3/uL [facility] Immature granulocytes/100 WBC (Bld) 0.5 % 0.0 - 2.0 % [facility] Interpretation and review of laboratory results Abnormal [facility] Lymphocytes (Bld) [#/Vol] 0.8 10*3/uL Low 1.0 - 4.3 10*3/uL [facility] Lymphocytes/100 WBC (Bld) 19.2 % 15.0 - 45.0 % [facility] MCH (RBC) [Entitic mass] 30.1 pg 26.0 - 34.0 pg [facility] MCHC (RBC) [Mass/Vol] 31.9 % 30.5 - 36.0 % [facility] MCV (RBC) [Entitic vol] 94.4 fL 77.0 - 99.0 fL [facility] Monocytes (Bld) [#/Vol] 0.3 10*3/uL 0.0 - 0.9 10*3/uL [facility] Monocytes/100 WBC (Bld) 7.5 % 5.0 - 13.0 % [facility] Neutrophils (Bld) [#/Vol] 2.9 10*3/uL 1.8 - 7.5 10*3/uL [facility] Neutrophils/100 WBC (Bld) 72.6 % 38.0 - 82.0 % [facility] Nucleated RBC/100 WBC (Bld) [Ratio] 0.0 % [facility] Platelet mean volume (Bld) [Entitic vol] 10.5 fL 9.0 - 12.7 fL [facility] Platelets (Bld) [#/Vol] 202 10*3/uL 140 - 440 10*3/uL [facility] RBC (Bld) [#/Vol] 2.86 10*6/uL Low 3.80 - 5.2 0 10*6/uL [facility] WBC (Bld) [#/Vol] 4.0 10*3/uL 3.6 - 10.7 10*3/uL [facility] CBC WITH AUTO DIFFERENTIALon 04-07-2024 Basophils (Bld) [#/Vol] 0.0 10*3/uL Normal 0.0-0.2 [facility] Comment on above: Performed By: #### L [id number] ####Software Writer: VELMA VALADEZ ([id number])[facility])[address] [place] [address] Basophils/100 WBC (Bld) 0.2 % Normal 0.0-2.0 [facility] Comment on above: Performed By: #### L [id number] ####Software Writer: VELMA VALADEZ ([id number])[facility])[address] [place] [address] Eosinophils (Bld) [#/Vol] 0.0 10*3/uL Normal 0.0-0.5 [facility] Comment on above: Performed By: #### L [id number] ####Software Writer: VELMA VALADEZ ([id number])[facility])[address] [place] [address] Eosinophils/100 WBC (Bld) 0.0 % Normal 0.0-6.0 [facility] Comment on above: Performed By: #### L [id number] ####Software Writer: VELMA VALADEZ ([id number])[facility])[address] [place] [address] Erythrocyte distribution width (RBC) [Ratio] 14.3 % Normal 11.5-15.0 [facility] Comment on above: Performed By: #### L [id number] ####Software Writer: VELMA [id number])[facility])[address] [place] [address] Hematocrit (Bld) [Volume fraction] 27.0 % Low 35.0-47.0 [facility] Comment on above: Performed By: #### L [id number] ####Software Writer: VELMA [id number])[facility])[address] [place] [address] Hemoglobin (Bld) [Mass/Vol] 8.6 g/dL Low 11.7-16.0 [facility] Comment on above: Performed By: #### L [id number] ####Software Writer: VELMA VALADEZ ([id number])[facility])[address] [place] [address] IMMATURE GRANS % 0.5 % Normal 0.0-2.0 [facility] Comment on above: Performed By: #### L [id number] ####Software Writer: VELMA VALADEZ ([id number])[facility])[address] [place] [address] IMMATURE GRANS ABSOLUTE 0.0 10*3/uL Normal <0.1 [facility] Comment on above: Performed By: #### L [id number] ####Software Writer: VELMA VALADEZ ([id number])[facility])[address] [place] [address] Lymphocytes (Bld) [#/Vol] 0.8 10*3/uL Low 1.0-4.3 [facility] Comment on above: Performed By: #### L [id number] ####Software Writer: VELMA VALADEZ ([id number])[address] Lymphocytes/100 WBC (Bld) 19.2 % Normal 15.0-45.0 [facility] Comment on above: Performed By: #### L [id number] ####Software Writer: VELMA VALADEZ ([id number])[facility])[address] [place] [address] MCH (RBC) [Entitic mass] 30.1 pg Normal 26.0-34.0 [facility] Comment on above: Performed By: #### L [id number] ####Software Writer: VELMA VALADEZ ([id number])[facility])[address] [place] [address] MCHC 31.9 % Normal 30.5-36.0 [facility] Comment on above: Performed By: #### L [id number] ####Software Writer: VELMA VALADEZ ([id number])[facility])[address] [place] [address] MCV (RBC) [Entitic vol] 94.4 fL Normal 77.0-99.0 [facility] Comment on above: Performed By: #### L [id number] ####Software Writer: VELMA VALADEZ ([id number])[facility] ([facility])[address] [place] [address] Monocytes (Bld) [#/Vol] 0.3 10*3/uL Normal 0.0-0.9 [facility] Comment on above: Performed By: #### L [id number] ####Software Writer: VELMA VALADEZ ([id number])[facility])[address] [place] [address] Monocytes/100 WBC (Bld) 7.5 % Normal 5.0-13.0 [facility] Comment on above: Performed By: #### L [id number] ####Software Writer: VELMA VALADEZ ([id number])[facility])[address] [place] [address] NEUTROPHILS ABSOLUTE 2.9 10*3/uL Normal 1.8-7.[address] [facility] Comment on above: Performed By: #### L [id number] ####Software Writer: VELMA VALADEZ ([id number])[facility])[address] [place] [address] Neutrophils/100 WBC (Bld) 72.6 % Normal 38.0-82.0 [facility] Comment on above: Performed By: #### L [id number] ####Software Writer: VELMA VALADEZ ([id number])[facility])[address] [place] [address] NRBC 0.0 /100 WBCs Normal 0.0-2.0 [facility] Comment on above: Performed By: #### L [id number] ####Software Writer: VELMA VALADEZ ([id number])[facility] ([facility])[address] [place] [address] Platelet mean volume (Bld) [Entitic vol] 10.5 fL Normal 9.0-12.7 [facility] Comment on above: Performed By: #### L [id number] ####Software Writer: VELMA VALADEZ ([id number])[facility] ([facility])[address] [place] [address] Platelets (Bld) [#/Vol] 202 10*3/uL Normal 140-440 [facility] Comment on above: Performed By: #### L [id number] ####Software Writer: VELMA VALADEZ ([id number])[facility] ([facility])[address] [place] [address] RBC (Bld) [#/Vol] 2.86 10*6/uL Low 3.80-5.20 [facility] Comment on above: Performed By: #### L [id number] ####Software Writer: VELMA VALADEZ ([id number])[facility])[address] [place] [address] WBC (Bld) [#/Vol] 4.0 10*3/uL Normal 3.6-10.7 [facility] Comment on above: Performed By: #### L [id number] ####Software Writer: VELMA VALADEZ ([id number])[facility] ([facility])[address] [place] [address] IDNon 04-07-2024 IDN Normal [facility] Laboratory - Coagulationon 0 04-07-2024 PT Coag (Bld) [Time] 11.1 s 9.0 - 1 2.0 s [facility] No Panel Informationon 04-07 [facility] Nursing Noteon 04-07-2024 Nursing Note NO [...] Myocardial Infarction Performed By: #### [place] AB325, [id number] ####Software Writer: VELMA VALADEZ ([id number])[address] PT Coag (PPP) [Time] 11.1 s Normal 9.0-12.0 [facility] Comment on above: Performed By: #### [place] AB325, [id number] ####Software Writer: VELMA VALADEZ ([id number])[facility] [employer] PT Coag (Bld) [Time]on 04-07 INR Coag (PPP) [Relative time] 1.0 {INR} 0.9 - 1.1 [facility] Comment on above: Recommended Anticoag ulant [...] Interpretation and review of laboratory results Normal [facility] Progress Noteon 04-07-2024 Progress Note Normal [facility] Progress Note Normal [facility] Progress Note Normal [facility] aPTT Coag (Bld) [Time]on aPTT Coag (PPP) [Time] 54.7 s High 20.0 - 30.5 s [facility] Interpretation and review of laboratory results Abnormal [facility] NOTE: The therapeuti c time for Heparin anticoagulation, based on Xa activity inhibition, is an APTT of 46-80 seconds. [facility] aPTT Coag (PPP) [Time] 77.7 s High 20.0 - 30.5 s [facility] Interpretation and review of laboratory results Abnormal [facility] NOTE: The therapeuti c time for Heparin anticoagulation, based on Xa activity inhibition, is an APTT of 46-80 seconds. [facility] [id number] 04-06-2024 [id number] Normal [facility] APTTon 04-06-2024 aPTT Coag (Bld) [Time] 43.3 s High 20.0-30.5 [facility] Comment on above: Result Comment: BUBBA Garcia COMMENTS:NOTE: The therapeutic time for Heparin anticoagulation, based on Xa activity inhibition, is an APTT of 46-80 seconds. Performed By: #### L [id number] ####Software Writer: VELMA VALADEZ ([id number])[facility] ([facility])[address] [place] [address] aPTT Coag (Bld) [Time] 97.6 s High 20.0-30.5 [facility] Comment on above: Result Comment: BUBBA Garcia COMMENTS:NOTE: The therapeutic time for Heparin anticoagulation, based on Xa activity inhibition, is an APTT of 46-80 seconds. Performed By: #### L [id number] ####Software Writer: VELMA VALADEZ ([id number])[facility] ([facility])[address] [place] [address] Anesthesia Noteon 04-06-2024 Anesthesia Note Normal [facility] Anesthesia Note Normal [facility] BASIC METABOLIC PANELon 03-19 Anion gap [Moles/Vol] 4 mmol/L Normal 3-[address] [facility] Comment on above: Performed By: #### L AB15 ####Software Writer: VELMA VALADEZ ([id number])[facility] ([facility])[address] [place] [address] Calcium [Mass/Vol] 8.9 mg/dL Normal 8.4-10.4 [facility] Comment on above: Performed By: #### L AB15 ####Software Writer: VELMA VALADEZ ([id number])[facility] ([facility])[address] [place] [address] Chloride [Moles/Vol] 114 mmol/L High 98-107 [facility] Comment on above: Performed By: #### L AB15 ####Software Writer: VELMA VALADEZ ([id number])[facility])[address] [place] [address] CO2 [Moles/Vol] 18 mmol/L Low 22-30 [facility] Comment on above: Performed By: #### L AB15 ####Software Writer: VELMA VALADEZ ([id number])[facility])[address] [place] [address] Creatinine [Mass/Vol] 0.96 mg/dL Normal 0.52-1.[address] [facility] Comment on above: Performed By: #### L AB15 ####Software Writer: VELMA VALADEZ ([id number])[facility])[address] [place] [address] GLOMERULAR FILTRATION RATE ML/MIN/1.73 SQ M.PREDICTED 58.5 mL/min/1.73m*2 Low >60.0 [facility] Comment on above: Result Comment: Calc ulation based on the Chronic Kidney Disease Epidemiology Collaboration (CKD-EPI) equation refit without adjustment for race Performed By: #### L AB15 ####Software Writer: VELMA VALADEZ ([id number])[facility])[address] [place] [address] Glucose [Mass/Vol] 97 mg/dL Normal 70-100 [facility] Comment on above: Performed By: #### L AB15 ####Software Writer: VELMA VALADEZ ([id number])[facility])[address] [place] [address] Potassium [Moles/Vol] 4.6 mmol/L Normal 3.5-5.[address] [facility] Comment on above: Performed By: #### L AB15 ####Software Writer: VELMA VALADEZ ([id number])[facility] ([facility] [place] [address] Sodium [Moles/Vol] 135 mmol/L Normal 135-145 [facility] Comment on above: Performed By: #### L AB15 ####Software Writer: VELMA VALADEZ ([id number])[facility] ([facility])[address] [place] [address] Urea nitrogen [Mass/Vol] 17 mg/dL Normal 7-17 [facility] Comment on above: Performed By: #### L AB15 ####Software Writer: VELMA VALADEZ ([id number])[facility] ([facility])[address] [place] [address] BLOOD TYPE AND SCREEN GELon 04-06-2024 ABO GROUPING AB Normal [facility] Comment on above: Performed By: #### L [id number] ####Software Writer: VELMA VALADEZ ([id number])[facility] ([facility])[address] [place] [address] RH TYPE IN BLOOD Positive Normal [facility] Comment on above: Performed By: #### L [id number] ####Software Writer: VELMA VALADEZ ([id number])[facility] ([facility])[address] [place] [address] Basic metabolic 1998 panelon 04-06-2024 Anion gap [Moles/Vol] 4 mmol/L 3 - 13 mmol/L [facility] Calcium [Mass/Vol] 8.9 mg/dL 8.4 - 10. 4 mg/dL [facility] Chloride [Moles/Vol] 114 mmol/L High 98 - 10 7 mmol/L [facility] CO2 [Moles/Vol] 18 mmol/L Low 22 - 30 mmol/L [facility] Creatinine [Mass/Vol] 0.96 mg/dL 0.52 - 1.04 mg/dL [facility] GFR/1.73 sq M.predicted (S/P/Bld) [Vol rate/Area] 58.5 mL/min Low - PINF [facility] Comment on above: Calculation based on the Chronic Kidney Disease Epidemiology Collaboration (CKD-EPI) equation refit without adjustment for race Glucose [Mass/Vol] 97 mg/dL 70 - 100 mg/dL [facility] Interpretation and review of laboratory results Abnormal [facility] Potassium [Moles/Vol] 4.6 mmol/L 3.5 - 5.1 mmol/L [facility] Sodium [Moles/Vol] 135 mmol/L 135 - 145 mmol/L [facility] Urea nitrogen [Mass/Vol] 17 mg/dL 7 - 17 mg/dL [facility] Blood type and Crossmatch pa juan (Bld)on 04-06-2024 ABO group Nom (Bld) AB [facility] Blood group antibody screen GEL Ql Negative [facility] D Ag Ql (RBC) Positive [facility] Healt h [facility] CARECOORDon 04-06-2024 CARECOORD Normal [facility] CARECOPICKEREL Normal [facility] CBC W Auto Differential pane l (Bld)on 04-06-2024 Basophils (Bld) [#/Vol] 0.1 10*3/uL 0.0 - 0.2 10*3/uL [facility] Basophils/100 WBC (Bld) 1.1 % 0.0 - 2.0 % [facility] Eosinophils (Bld) [#/Vol] 0.1 10*3/uL 0.0 - 0.5 10*3/uL [facility] Eosinophils/100 WBC (Bld) 2.7 % 0.0 - 6.0 % [facility] Erythrocyte distribution width (RBC) [Ratio] 14.3 % 11.5 - 15.0 % [facility] Hematocrit (Bld) [Volume fraction] 29.8 % Low 35.0 - 47.0 % [facility] Hemoglobin (Bld) [Mass/Vol] 9.7 g/dL Low 11.7 - 16.0 g/dL [facility] Immature granulocytes (Bld) [#/Vol] 0.0 10*3/uL NINF - 0.1 10*3/uL [facility] Immature granulocytes/100 WBC (Bld) 0.2 % 0.0 - 2.0 % [facility] Interpretation and review of laboratory results Abnormal [facility] Lymphocytes (Bld) [#/Vol] 1.5 10*3/uL 1.0 - 4.3 10*3/uL [facility] Lymphocytes/100 WBC (Bld) 33.0 % 15.0 - 45.0 % [facility] MCH (RBC) [Entitic mass] 30.3 pg 26.0 - 34.0 pg [facility] MCHC (RBC) [Mass/Vol] 32.6 % 30.5 - 36.0 % [facility] MCV (RBC) [Entitic vol] 93.1 fL 77.0 - 99.0 fL [facility] Monocytes (Bld) [#/Vol] 0.5 10*3/uL 0.0 - 0.9 10*3/uL [facility] Monocytes/100 WBC (Bld) 10.5 % 5.0 - 13.0 % [facility] Neutrophils (Bld) [#/Vol] 2.4 10*3/uL 1.8 - 7.5 10*3/uL [facility] Neutrophils/100 WBC (Bld) 52.5 % 38.0 - 82.0 % [facility] Nucleated RBC/100 WBC (Bld) [Ratio] 0.0 % [facility] Platelet mean volume (Bld) [Entitic vol] 10.4 fL 9.0 - 12.7 fL [facility] Platelets (Bld) [#/Vol] 207 10*3/uL 140 - 440 10*3/uL [facility] RBC (Bld) [#/Vol] 3.20 10*6/uL Low 3.80 - 5.2 0 10*6/uL [facility] WBC (Bld) [#/Vol] 4.5 10*3/uL 3.6 - 10.7 10*3/uL [facility] CBC WITH AUTO DIFFERENTIALon 04-06-2024 Basophils (Bld) [#/Vol] 0.1 10*3/uL Normal 0.0-0.2 [facility] Comment on above: Performed By: #### L [id number] ####Software Writer: VELMA VALADEZ ([id number])[address] Basophils/100 WBC (Bld) 1.1 % Normal 0.0-2.0 [facility] Comment on above: Performed By: #### L [id number] ####Software Writer: VELMA VALADEZ ([id number])[address] Eosinophils (Bld) [#/Vol] 0.1 10*3/uL Normal 0.0-0.5 [facility] Comment on above: Performed By: #### L [id number] ####Software Writer: VELMA VALADEZ ([id number])[facility])[address] [place] [address] Eosinophils/100 WBC (Bld) 2.7 % Normal 0.0-6.0 [facility] Comment on above: Performed By: #### L [id number] ####Software Writer: VELMA VALADEZ ([id number])[address] Erythrocyte distribution width (RBC) [Ratio] 14.3 % Normal 11.5-15.0 [facility] Comment on above: Performed By: #### L [id number] ####Software Writer: VELMA VALADEZ ([id number])[facility])[address] [place] [address] Hematocrit (Bld) [Volume fraction] 29.8 % Low 35.0-47.0 [facility] Comment on above: Performed By: #### L [id number] ####Software Writer: VELMA VALADEZ ([id number])[address] Hemoglobin (Bld) [Mass/Vol] 9.7 g/dL Low 11.7-16.0 [facility] Comment on above: Performed By: #### L [id number] ####Software Writer: VELMA VALADEZ ([id number])[facility])[address] [place] [address] IMMATURE GRANS % 0.2 % Normal 0.0-2.0 [facility] Comment on above: Performed By: #### L [id number] ####Software Writer: VELMA VALADEZ ([id number])[address] IMMATURE GRANS ABSOLUTE 0.0 10*3/uL Normal <0.1 [facility] Comment on above: Performed By: #### L [id number] ####Software Writer: VELMA VALADEZ ([id number])[facility])[address] [place] [address] Lymphocytes (Bld) [#/Vol] 1.5 10*3/uL Normal 1.0-4.3 [facility] Comment on above: Performed By: #### L [id number] ####Software Writer: VELMA VALADEZ ([id number])[facility])[address] [place] [address] Lymphocytes/100 WBC (Bld) 33.0 % Normal 15.0-45.0 [facility] Comment on above: Performed By: #### L [id number] ####Software Writer: VELMA VALADEZ ([id number])[facility])[address] [place] [address] MCH (RBC) [Entitic mass] 30.3 pg Normal 26.0-34.0 [facility] Comment on above: Performed By: #### L [id number] ####Software Writer: VELMA VALADEZ ([id number])[facility])[address] [place] [address] MCHC 32.6 % Normal 30.5-36.0 [facility] Comment on above: Performed By: #### L [id number] ####Software Writer: VELMA VALADEZ ([id number])[facility])[address] [place] [address] MCV (RBC) [Entitic vol] 93.1 fL Normal 77.0-99.0 [facility] Comment on above: Performed By: #### L [id number] ####Software Writer: VELMA VALADEZ ([id number])[facility])[address] [place] [address] Monocytes (Bld) [#/Vol] 0.5 10*3/uL Normal 0.0-0.9 [facility] Comment on above: Performed By: #### L [id number] ####Software Writer: VELMA VALADEZ ([id number])[facility] ([facility])[address] [place] [address] Monocytes/100 WBC (Bld) 10.5 % Normal 5.0-13.0 [facility] Comment on above: Performed By: #### L [id number] ####Software Writer: VELMA VALADEZ ([id number])[facility] ([facility])[address] [place] [address] NEUTROPHILS ABSOLUTE 2.4 10*3/uL Normal 1.8-7.[address] [facility] Comment on above: Performed By: #### L [id number] ####Software Writer: VELMA VALADEZ ([id number])[facility] ([facility])[address] [place] [address] Neutrophils/100 WBC (Bld) 52.5 % Normal 38.0-82.0 [facility] Comment on above: Performed By: #### L [id number] ####Software Writer: VELMA VALADEZ ([id number])[facility] ([facility])[address] [place] [address] NRBC 0.0 /100 WBCs Normal 0.0-2.0 [facility] Comment on above: Performed By: #### L [id number] ####Software Writer: VELMA VALADEZ ([id number])[facility] ([facility])[address] [place] [address] Platelet mean volume (Bld) [Entitic vol] 10.4 fL Normal 9.0-12.7 [facility] Comment on above: Performed By: #### L [id number] ####Software Writer: VELMA VALADEZ ([id number])[facility] ([facility])[address] [place] [address] [place] Platelets (Bld) [#/Vol] 207 10*3/uL Normal 140-440 [facility] Comment on above: Performed By: #### L [id number] ####Software Writer: VELMA VALADEZ ([id number])[facility] ([facility])[address] [place] [address] RBC (Bld) [#/Vol] 3.20 10*6/uL Low 3.80-5.20 [facility] Comment on above: Performed By: #### L [id number] ####Software Writer: VELMA VALADEZ ([id number])[facility] ([facility])[address] [place] [address] WBC (Bld) [#/Vol] 4.5 10*3/uL Normal 3.6-10.7 [facility] Comment on above: Performed By: #### L [id number] ####Software Writer: VELMA VALADEZ ([id number])[facility] ([facility])[address] [place] [address] No Panel Informationon 04-06 There is no [...] Center Progress Noteon 04-06-2024 Progress Note Normal [facility] Progress Note Normal [facility] Progress Note Normal [facility] aPTT Coag (Bld) [Time]on aPTT Coag (PPP) [Time] 43.3 s High 20.0 - 30.5 s [facility] Interpretation and review of laboratory results Abnormal [facility] NOTE: The therapeuti c time for Heparin anticoagulation, based on Xa activity inhibition, is an APTT of 46-80 seconds. [facility] aPTT Coag (PPP) [Time] 97.6 s High 20.0 - 30.5 s [facility] Interpretation and review of laboratory results Abnormal [facility] NOTE: The therapeuti c time for Heparin anticoagulation, based on Xa activity inhibition, is an APTT of 46-80 seconds. [facility] 36on 04-05-2024 36 Surgery: Inpatient R LE venous mechanical thrombectomy Date of surgery: 04/06/24 Pre-testing: inpatient CPT codes: 39541 ICD 10: I82.401 Post-op or OV: Adriane to schedule Reps: Selvin Elaine) notified 04/05/24 Normal [facility] APTTon 04-05-2024 aPTT Coag (Bld) [Time] 76.6 s High 20.0-30.5 [facility] Comment on above: Result Comment: BUBBA Garcia COMMENTS:NOTE: The therapeutic time for Heparin anticoagulation, based on Xa activity inhibition, is an APTT of 46-80 seconds. Performed By: #### L [id number], [id number] ####Software Writer: VELMA VALADZE ([id number])[address] aPTT Coag (Bld) [Time] 69.9 s High 20.0-30.5 [facility] Comment on above: Result Comment: BUBBA Garcia COMMENTS:NOTE: The therapeutic time for Heparin anticoagulation, based on Xa activity inhibition, is an APTT of 46-80 seconds. Performed By: #### L [id number] ####Software Writer: VELMA VALADEZ ([id number])[address] aPTT Coag (Bld) [Time] 88.8 s High 20.0-30.5 [facility] Comment on above: Result Comment: BUBBA Garcia COMMENTS:NOTE: The therapeutic time for Heparin anticoagulation, based on Xa activity inhibition, is an APTT of 46-80 seconds. Performed By: #### L [id number], [id number] ####Software Writer: VELMA VALADEZ ([id number])[address] aPTT Coag (Bld) [Time] 109.7 s High 20.0-30.5 [facility] Comment on above: Result Comment: BUBBA Garcia COMMENTS:NOTE: The therapeutic time for Heparin anticoagulation, based on Xa activity inhibition, is an APTT of 46-80 seconds. Performed By: #### L [id number] ####Software Writer: VELMA VALADEZ ([id number])[facility] ([facility])[address] [place] [address] BASIC METABOLIC PANELon 03-18 Anion gap [Moles/Vol] 3 mmol/L Normal 3-[address] [facility] Comment on above: Performed By: #### L AB15 ####Software Writer: VELMA VALADEZ ([id number])[facility] ([facility] [place] [address] Calcium [Mass/Vol] 8.7 mg/dL Normal 8.4-10.4 [facility] Comment on above: Performed By: #### L AB15 ####Software Writer: VELMA VALADEZ ([id number])[facility] ([facility])[address] [place] [address] Chloride [Moles/Vol] 113 mmol/L High 98-107 [facility] Comment on above: Performed By: #### L AB15 ####Software Writer: VELMA VALADEZ ([id number])[facility] ([facility] [place] [address] [place] CO2 [Moles/Vol] 17 mmol/L Low 22-30 [facility] Comment on above: Performed By: #### L AB15 ####Software Writer: VELMA VALADZE ([id number])[facility] [place] [address] Creatinine [Mass/Vol] 1.12 mg/dL High 0.52-1.[address] [facility] Comment on above: Performed By: #### L AB15 ####Software Writer: VELMA VALADEZ ([id number])[facility] ([facility])[address] [place] [address] [place] GLOMERULAR FILTRATION RATE ML/MIN/1.73 SQ M.PREDICTED 48.6 mL/min/1.73m*2 Low >60.0 [facility] Comment on above: Result Comment: Calc ulation based on the Chronic Kidney Disease Epidemiology Collaboration (CKD-EPI) equation refit without adjustment for race Performed By: #### L AB15 ####Software Writer: VELMA VALADEZ ([id number])[facility])[address] [place] [address] Glucose [Mass/Vol] 102 mg/dL High 70-100 [facility] Comment on above: Performed By: #### L AB15 ####Software Writer: VELMA VALADEZ ([id number])[facility] ([facility])[address] [place] [address] Potassium [Moles/Vol] 4.8 mmol/L Normal 3.5-5.[address] [facility] Comment on above: Performed By: #### L AB15 ####Software Writer: VELMA VALADEZ ([id number])[facility] ([facility])[address] [place] [address] Sodium [Moles/Vol] 133 mmol/L Low 135-145 [facility] Comment on above: Performed By: #### L AB15 ####Software Writer: VELMA VALADEZ ([id number])[facility] ([facility])[address] [place] [address] Urea nitrogen [Mass/Vol] 25 mg/dL High 7-17 [facility] Comment on above: Performed By: #### L AB15 ####Software Writer: VELMA VALADEZ ([id number])[facility] ([facility])[address] [place] [address] Basic metabolic 1998 panelon 04-05-2024 Anion gap [Moles/Vol] 3 mmol/L 3 - 13 mmol/L [facility] Calcium [Mass/Vol] 8.7 mg/dL 8.4 - 10. 4 mg/dL [facility] Chloride [Moles/Vol] 113 mmol/L High 98 - 10 7 mmol/L [facility] CO2 [Moles/Vol] 17 mmol/L Low 22 - 30 mmol/L [facility] Creatinine [Mass/Vol] 1.12 mg/dL High 0.52 - 1.04 mg/dL [facility] GFR/1.73 sq M.predicted (S/P/Bld) [Vol rate/Area] 48.6 mL/min Low - PINF [facility] Comment on above: Calculation based on the Chronic Kidney Disease Epidemiology Collaboration (CKD-EPI) equation refit without adjustment for race Glucose [Mass/Vol] 102 mg/dL High 70 - 100 mg/dL [facility] Interpretation and review of laboratory results Abnormal [facility] Potassium [Moles/Vol] 4.8 mmol/L 3.5 - 5.1 mmol/L [facility] Sodium [Moles/Vol] 133 mmol/L Low 135 - 145 mmol/L [facility] Urea nitrogen [Mass/Vol] 25 mg/dL High 7 - 17 mg/dL [facility] CARECOORDon 04-05-2024 CARECOORD Normal [facility] CBC W Auto Differential pane l (Bld)on 04-05-2024 Basophils (Bld) [#/Vol] 0.1 10*3/uL 0.0 - 0.2 10*3/uL [facility] Basophils/100 WBC (Bld) 1.0 % 0.0 - 2.0 % [facility] Eosinophils (Bld) [#/Vol] 0.2 10*3/uL 0.0 - 0.5 10*3/uL [facility] Eosinophils/100 WBC (Bld) 2.9 % 0.0 - 6.0 % [facility] Erythrocyte distribution width (RBC) [Ratio] 14.4 % 11.5 - 15.0 % [facility] Hematocrit (Bld) [Volume fraction] 32.3 % Low 35.0 - 47.0 % [facility] Hemoglobin (Bld) [Mass/Vol] 10.6 g/dL Low 11.7 - 16.0 g/dL [facility] Immature granulocytes (Bld) [#/Vol] 0.0 10*3/uL NINF - 0.1 10*3/uL [facility] Immature granulocytes/100 WBC (Bld) 0.3 % 0.0 - 2.0 % [facility] Interpretation and review of laboratory results Abnormal [facility] Lymphocytes (Bld) [#/Vol] 1.7 10*3/uL 1.0 - 4.3 10*3/uL [facility] Lymphocytes/100 WBC (Bld) 27.5 % 15.0 - 45.0 % [facility] MCH (RBC) [Entitic mass] 30.7 pg 26.0 - 34.0 pg [facility] MCHC (RBC) [Mass/Vol] 32.8 % 30.5 - 36.0 % [facility] MCV (RBC) [Entitic vol] 93.6 fL 77.0 - 99.0 fL [facility] Monocytes (Bld) [#/Vol] 0.6 10*3/uL 0.0 - 0.9 10*3/uL [facility] Monocytes/100 WBC (Bld) 9.0 % 5.0 - 13.0 % [facility] Neutrophils (Bld) [#/Vol] 3.6 10*3/uL 1.8 - 7.5 10*3/uL [facility] Neutrophils/100 WBC (Bld) 59.3 % 38.0 - 82.0 % [facility] Nucleated RBC/100 WBC (Bld) [Ratio] 0.0 % [facility] Platelet mean volume (Bld) [Entitic vol] 10.1 fL 9.0 - 12.7 fL [facility] Platelets (Bld) [#/Vol] 204 10*3/uL 140 - 440 10*3/uL [facility] RBC (Bld) [#/Vol] 3.45 10*6/uL Low 3.80 - 5.2 0 10*6/uL [facility] WBC (Bld) [#/Vol] 6.1 10*3/uL 3.6 - 10.7 10*3/uL [facility] CBC WITH AUTO DIFFERENTIALon 04-05-2024 Basophils (Bld) [#/Vol] 0.1 10*3/uL Normal 0.0-0.2 [facility] Comment on above: Performed By: #### L [id number] ####Software Writer: VELMA VALADEZ ([id number])[address] Basophils/100 WBC (Bld) 1.0 % Normal 0.0-2.0 [facility] Comment on above: Performed By: #### L [id number] ####Software Writer: VELMA VALADEZ ([id number])[facility])[address] [place] [address] Eosinophils (Bld) [#/Vol] 0.2 10*3/uL Normal 0.0-0.5 [facility] Comment on above: Performed By: #### L [id number] ####Software Writer: VELMA VALADEZ ([id number])[facility])[address] [place] [address] Eosinophils/100 WBC (Bld) 2.9 % Normal 0.0-6.0 [facility] Comment on above: Performed By: #### L [id number] ####Software Writer: VELMA VALADEZ ([id number])[facility])[address] [place] [address] Erythrocyte distribution width (RBC) [Ratio] 14.4 % Normal 11.5-15.0 [facility] Comment on above: Performed By: #### L [id number] ####Software Writer: VELMA VALADEZ ([id number])[address] Hematocrit (Bld) [Volume fraction] 32.3 % Low 35.0-47.0 [facility] Comment on above: Performed By: #### L [id number] ####Software Writer: VELMA VALADEZ ([id number])[address] Hemoglobin (Bld) [Mass/Vol] 10.6 g/dL Low 11.7-16.0 [facility] Comment on above: Performed By: #### L [id number] ####Software Writer: VELMA VALADEZ ([id number])[address] IMMATURE GRANS % 0.3 % Normal 0.0-2.0 [facility] Comment on above: Performed By: #### L [id number] ####Software Writer: VELMA VALADEZ ([id number])[address] IMMATURE GRANS ABSOLUTE 0.0 10*3/uL Normal <0.1 [facility] Comment on above: Performed By: #### L [id number] ####Software Writer: VELMA VALADEZ ([id number])[facility] ([facility])[address] [place] [address] Lymphocytes (Bld) [#/Vol] 1.7 10*3/uL Normal 1.0-4.3 [facility] Comment on above: Performed By: #### L [id number] ####Software Writer: VELMA VALADEZ ([id number])[facility])[address] [place] [address] Lymphocytes/100 WBC (Bld) 27.5 % Normal 15.0-45.0 [facility] Comment on above: Performed By: #### L [id number] ####Software Writer: VELMA VALADEZ ([id number])[facility])[address] [place] [address] MCH (RBC) [Entitic mass] 30.7 pg Normal 26.0-34.0 [facility] Comment on above: Performed By: #### L [id number] ####Software Writer: VELMA VALADEZ ([id number])[facility])[address] [place] [address] MCHC 32.8 % Normal 30.5-36.0 [facility] Comment on above: Performed By: #### L [id number] ####Software Writer: VELMA VALADEZ ([id number])[facility])[address] [place] [address] MCV (RBC) [Entitic vol] 93.6 fL Normal 77.0-99.0 [facility] Comment on above: Performed By: #### L [id number] ####Software Writer: VELMA VALADEZ ([id number])[facility])[address] [place] [address] Monocytes (Bld) [#/Vol] 0.6 10*3/uL Normal 0.0-0.9 [facility] Comment on above: Performed By: #### L [id number] ####Software Writer: VELMA VALADEZ ([id number])[facility])[address] [place] [address] Monocytes/100 WBC (Bld) 9.0 % Normal 5.0-13.0 [facility] Comment on above: Performed By: #### L [id number] ####Software Writer: VELMA VALADEZ ([id number])[facility] ([facility])[address] [place] [address] NEUTROPHILS ABSOLUTE 3.6 10*3/uL Normal 1.8-7.[address] [facility] Comment on above: Performed By: #### L [id number] ####Software Writer: VELMA VALADEZ ([id number])[facility] ([facility])[address] [place] [address] Neutrophils/100 WBC (Bld) 59.3 % Normal 38.0-82.0 [facility] Comment on above: Performed By: #### L [id number] ####Software Writer: VELMA VALADEZ ([id number])[facility] ([facility])[address] [place] [address] NRBC 0.0 /100 WBCs Normal 0.0-2.0 [facility] Comment on above: Performed By: #### L [id number] ####Software Writer: VELMA VALADEZ ([id number])[facility] ([facility])[address] [place] [address] Platelet mean volume (Bld) [Entitic vol] 10.1 fL Normal 9.0-12.7 [facility] Comment on above: Performed By: #### L [id number] ####Software Writer: VELMA VALADEZ ([id number])[facility] ([facility])[address] [place] [address] Platelets (Bld) [#/Vol] 204 10*3/uL Normal 140-440 [facility] Comment on above: Performed By: #### L [id number] ####Software Writer: VELMA VALADEZ ([id number])[facility] ([facility])[address] [place] [address] RBC (Bld) [#/Vol] 3.45 10*6/uL Low 3.80-5.20 [facility] Comment on above: Performed By: #### L [id number] ####Software Writer: VELMA VALADEZ ([id number])[facility])[address] [place] [address] WBC (Bld) [#/Vol] 6.1 10*3/uL Normal 3.6-10.7 [facility] Comment on above: Performed By: #### L [id number] ####Software Writer: VELMA VALADEZ ([id number])[facility])[address] [place] [address] IDNon 04-05-2024 IDN The patient is Moderately Stable - Low risk of patient condition declining or worsening The patient's goals for the shift include met The clinical goals for the shift include met Normal [facility] - Coagulationon 0 04-05-2024 PT Coag (Bld) [Time] 11.4 s 9.0 - 1 2.0 s [facility] PT Coag (Bld) [Time] 11.9 s 9.0 - 1 2.0 s [facility] No Panel Informationon 04-05 [facility] PROTHROMBIN TIMEon INR Coag (PPP) [Relative time] 1.0 {INR} Normal 0.9-1.1 [facility] Comment on above: Performed By: #### L [id number], [id number] ####Software Writer: VELMA VALADEZ ([id number])[facility])[address] [place] [address] PT Coag (PPP) [Time] 11.4 s Normal 9.0-12.0 [facility] Comment on above: Performed By: #### L [id number], [id number] ####Software Writer: VELMA VALADEZ ([id number])[facility])[address] [place] [address] INR Coag (PPP) [Relative time] 1.1 {INR} [...] Myocardial Infarction Performed By: #### Weston [id number], [id number] ####Software Writer: VELMA VALADEZ ([id number])[facility] ([facility])[address] [place] [address] PT Coag (PPP) [Time] 11.9 s Normal 9.0-12.0 [facility] Comment on above: Performed By: #### Weston [id number], [id number] ####Software Writer: VELMA VALADEZ ([id number])[facility] ([facility] [place] [address] PT Coag (Bld) [Time]on 04-05 INR Coag (PPP) [Relative time] 1.0 {INR} 0.9 - 1.1 [facility] Interpretation and review of laboratory results Normal [facility] INR Coag (PPP) [Relative time] 1.1 {INR} 0.9 - 1.1 [facility] Comment on above: Recommended Anticoag ulant [...] Interpretation and review of laboratory results Normal [facility] Progress Noteon 04-05-2024 Progress Note Normal [facility] [employer] [facility] Progress Note Nutrition rescreen completed. Chart reviewed. Patient to be monitored and followed by the diet air analysis technician. FADI Harmon Normal [facility] Progress Note Normal [facility] Progress Note Normal [facility] aPTT Coag (Bld) [Time]on aPTT Coag (PPP) [Time] 76.6 s High 20.0 - 30.5 s [facility] Interpretation and review of laboratory results Abnormal [facility] NOTE: The therapeuti c time for Heparin anticoagulation, based on Xa activity inhibition, is an APTT of 46-80 seconds. [facility] aPTT Coag (PPP) [Time] 69.9 s High 20.0 - 30.5 s [facility] Interpretation and review of laboratory results Abnormal [facility] NOTE: The therapeuti c time for Heparin anticoagulation, based on Xa activity inhibition, is an APTT of 46-80 seconds. [facility] aPTT Coag (PPP) [Time] 88.8 s High 20.0 - 30.5 s [facility] Interpretation and review of laboratory results Abnormal [facility] NOTE: The therapeuti c time for Heparin anticoagulation, based on Xa activity inhibition, is an APTT of 46-80 seconds. [facility] aPTT Coag (Bld) [Time]Ordere d By: Juni Millard on 04-05-2024 aPTT Coag (PPP) [Time] 109.7 s High 20.0 - 30.5 s [facility] Interpretation and review of laboratory results Abnormal [facility] NOTE: The therapeuti c time for Heparin anticoagulation, based on Xa activity inhibition, is an APTT of 46-80 seconds. [facility] [id number] 04-04-2024 [id number] Normal [facility] [id number] Normal [facility] APTTon 04-04-2024 aPTT Coag (Bld) [Time] 81.8 s High 20.0-30.5 [facility] Comment on above: Result Comment: BUBBA Garcia COMMENTS:NOTE: The therapeutic time for Heparin anticoagulation, based on Xa activity inhibition, is an APTT of 46-80 seconds. Performed By: #### L [id number] ####Software Writer: VELMA VALADEZ ([id number])[address] aPTT Coag (Bld) [Time] 81.4 s High 20.0-30.5 [facility] Comment on above: Result Comment: BUBBA Garcia COMMENTS:NOTE: The therapeutic time for Heparin anticoagulation, based on Xa activity inhibition, is an APTT of 46-80 seconds. Performed By: #### L [id number] ####Software Writer: VELMA VALADEZ ([id number])[facility] ([facility])[address] [place] [address] aPTT Coag (Bld) [Time] 132.2 s Critically high 20.0-30. 5 [facility] Comment on above: Result Comment: BUBBA Garcia COMMENTS:NOTE: The therapeutic time for Heparin anticoagulation, based on Xa activity inhibition, is an APTT of 46-80 seconds. Performed By: #### L [id number] ####Software Writer: VELMA VALADEZ ([id number])[facility] ([facility])[address] [place] [address] BASIC METABOLIC PANELon - Anion gap [Moles/Vol] 8 mmol/L Normal 3-[address] [facility] Comment on above: Performed By: #### L AB15 ####Software Writer: VELMA VALADEZ ([id number])[facility] ([facility])[address] [place] [address] Calcium [Mass/Vol] 9.3 mg/dL Normal 8.4-10.4 [facility] Comment on above: Performed By: #### L AB15 ####Software Writer: VELMA VALADEZ ([id number])[facility] ([facility])[address] [place] [address] Chloride [Moles/Vol] 110 mmol/L High 98-107 [facility] Comment on above: Performed By: #### L AB15 ####Software Writer: VELMA VALADEZ ([id number])[facility] ([facility])[address] [place] [address] CO2 [Moles/Vol] 18 mmol/L Low 22-30 [facility] Comment on above: Performed By: #### L AB15 ####Software Writer: VELMA VALADEZ ([id number])[facility] ([facility])[address] [place] [address] Creatinine [Mass/Vol] 1.45 mg/dL High 0.52-1.[address] [facility] Comment on above: Performed By: #### L AB15 ####Software Writer: VELMA VALADEZ ([id number])[facility])[address] [place] [address] GLOMERULAR FILTRATION RATE ML/MIN/1.73 SQ M.PREDICTED 35.6 mL/min/1.73m*2 Low >60.0 [facility] Comment on above: Result Comment: Calc ulation based on the Chronic Kidney Disease Epidemiology Collaboration (CKD-EPI) equation refit without adjustment for race Performed By: #### L AB15 ####Software Writer: VELMA VALADEZ ([id number])[facility] ([facility])[address] [place] [address] Glucose [Mass/Vol] 100 mg/dL Normal 70-100 [facility] Comment on above: Performed By: #### L AB15 ####Software Writer: VELMA VALADEZ ([id number])[facility])[address] [place] [address] Potassium [Moles/Vol] 4.5 mmol/L Normal 3.5-5.[address] [facility] Comment on above: Performed By: #### L AB15 ####Software Writer: VELMA VALADEZ ([id number])[facility] ([facility])[address] [place] [address] Sodium [Moles/Vol] 135 mmol/L Normal 135-145 [facility] Comment on above: Performed By: #### L AB15 ####Software Writer: VELMA VALADEZ ([id number])[facility])[address] [place] [address] Urea nitrogen [Mass/Vol] 30 mg/dL High 7-17 [facility] Comment on above: Performed By: #### L AB15 ####Software Writer: VELMA VALADEZ ([id number])[facility])[address] [place] [address] Basic metabolic 1998 panelOr dered By: Marielle Garcia on 04-04-2024 Anion gap [Moles/Vol] 8 mmol/L 3 - 13 mmol/L [facility] Calcium [Mass/Vol] 9.3 mg/dL 8.4 - 10. 4 mg/dL [facility] Chloride [Moles/Vol] 110 mmol/L High 98 - 10 7 mmol/L [facility] CO2 [Moles/Vol] 18 mmol/L Low 22 - 30 mmol/L [facility] Creatinine [Mass/Vol] 1.45 mg/dL High 0.52 - 1.04 mg/dL [facility] GFR/1.73 sq M.predicted (S/P/Bld) [Vol rate/Area] 35.6 mL/min Low - PINF [facility] Comment on above: Calculation based on the Chronic Kidney Disease Epidemiology Collaboration (CKD-EPI) equation refit without adjustment for race Glucose [Mass/Vol] 100 mg/dL 70 - 100 mg/dL [facility] Interpretation and review of laboratory results Abnormal [facility] Potassium [Moles/Vol] 4.5 mmol/L 3.5 - 5.1 mmol/L [facility] Sodium [Moles/Vol] 135 mmol/L 135 - 145 mmol/L [facility] Urea nitrogen [Mass/Vol] 30 mg/dL High 7 - 17 mg/dL [facility] CARECOORDon 04-04-2024 CARECOORD Normal [facility] CBC W Auto Differential pane l (Bld)on 04-04-2024 Basophils (Bld) [#/Vol] 0.1 10*3/uL 0.0 - 0.2 10*3/uL [facility] Basophils/100 WBC (Bld) 0.7 % 0.0 - 2.0 % [facility] Eosinophils (Bld) [#/Vol] 0.3 10*3/uL 0.0 - 0.5 10*3/uL [facility] Eosinophils/100 WBC (Bld) 3.2 % 0.0 - 6.0 % [facility] Erythrocyte distribution width (RBC) [Ratio] 14.2 % 11.5 - 15.0 % [facility] Hematocrit (Bld) [Volume fraction] 38.8 % 35.0 - 47.0 % [facility] Hemoglobin (Bld) [Mass/Vol] 12.5 g/dL 11.7 - 16.0 g/dL [facility] Immature granulocytes (Bld) [#/Vol] 0.1 10*3/uL High NINF - 0.1 10*3/uL [facility] Immature granulocytes/100 WBC (Bld) 0.6 % 0.0 - 2.0 % [facility] Interpretation and review of laboratory results Abnormal [facility] Lymphocytes (Bld) [#/Vol] 1.6 10*3/uL 1.0 - 4.3 10*3/uL [facility] Lymphocytes/100 WBC (Bld) 19.2 % 15.0 - 45.0 % [facility] MCH (RBC) [Entitic mass] 29.7 pg 26.0 - 34.0 pg [facility] MCHC (RBC) [Mass/Vol] 32.2 % 30.5 - 36.0 % [facility] MCV (RBC) [Entitic vol] 92.2 fL 77.0 - 99.0 fL [facility] Monocytes (Bld) [#/Vol] 0.8 10*3/uL 0.0 - 0.9 10*3/uL [facility] Monocytes/100 WBC (Bld) 9.9 % 5.0 - 13.0 % [facility] Neutrophils (Bld) [#/Vol] 5.3 10*3/uL 1.8 - 7.5 10*3/uL [facility] Neutrophils/100 WBC (Bld) 66.4 % 38.0 - 82.0 % [facility] Nucleated RBC/100 WBC (Bld) [Ratio] 0.0 % [facility] Platelet mean volume (Bld) [Entitic vol] 10.0 fL 9.0 - 12.7 fL [facility] Platelets (Bld) [#/Vol] 266 10*3/uL 140 - 440 10*3/uL [facility] RBC (Bld) [#/Vol] 4.21 10*6/uL 3.80 - 5.2 0 10*6/uL [facility] WBC (Bld) [#/Vol] 8.1 10*3/uL 3.6 - 10.7 10*3/uL [facility] CBC WITH AUTO DIFFERENTIALon 04-04-2024 Basophils (Bld) [#/Vol] 0.1 10*3/uL Normal 0.0-0.2 [facility] Comment on above: Performed By: #### L [id number] ####Software Writer: VELMA [id number])[facility] ([facility])[address] [place] [address] Basophils/100 WBC (Bld) 0.7 % Normal 0.0-2.0 [facility] Comment on above: Performed By: #### L [id number] ####Software Writer: VELMA VALDAEZ ([id number])[facility])[address] [place] [address] Eosinophils (Bld) [#/Vol] 0.3 10*3/uL Normal 0.0-0.5 [facility] Comment on above: Performed By: #### L [id number] ####Software Writer: VELMA VALADEZ ([id number])[facility])[address] [place] [address] Eosinophils/100 WBC (Bld) 3.2 % Normal 0.0-6.0 [facility] Comment on above: Performed By: #### L [id number] ####Software Writer: VELMA VALADEZ ([id number])[facility] ([facility])[address] [place] [address] Erythrocyte distribution width (RBC) [Ratio] 14.2 % Normal 11.5-15.0 [facility] Comment on above: Performed By: #### L [id number] ####Software Writer: VELMA VALADEZ ([id number])[address] Hematocrit (Bld) [Volume fraction] 38.8 % Normal 35.0-47.0 [facility] Comment on above: Performed By: #### L [id number] ####Software Writer: VELMA VALADEZ ([id number])[facility])[address] [place] [address] Hemoglobin (Bld) [Mass/Vol] 12.5 g/dL Normal 11.7-16.0 [facility] Comment on above: Performed By: #### L [id number] ####Software Writer: VELMA VALADEZ ([id number])[facility])[address] [place] [address] IMMATURE GRANS % 0.6 % Normal 0.0-2.0 [facility] Comment on above: Performed By: #### L [id number] ####Software Writer: VELMA VALADEZ ([id number])[facility])[address] [place] [address] IMMATURE GRANS ABSOLUTE 0.1 10*3/uL High <0.1 [facility] Comment on above: Performed By: #### L [id number] ####Software Writer: VELMA VALADEZ ([id number])[facility])[address] [place] [address] Lymphocytes (Bld) [#/Vol] 1.6 10*3/uL Normal 1.0-4.3 [facility] Comment on above: Performed By: #### L [id number] ####Software Writer: VELMA VALADEZ ([id number])[facility])[address] [place] [address] Lymphocytes/100 WBC (Bld) 19.2 % Normal 15.0-45.0 [facility] Comment on above: Performed By: #### L [id number] ####Software Writer: VELMA VALADEZ ([id number])[facility])[address] [place] [address] MCH (RBC) [Entitic mass] 29.7 pg Normal 26.0-34.0 [facility] Comment on above: Performed By: #### L [id number] ####Software Writer: VELMA VALADEZ ([id number])[facility])[address] [place] [address] MCHC 32.2 % Normal 30.5-36.0 [facility] Comment on above: Performed By: #### L [id number] ####Software Writer: VELMA VALADEZ ([id number])[facility])[address] [place] [address] MCV (RBC) [Entitic vol] 92.2 fL Normal 77.0-99.0 [facility] Comment on above: Performed By: #### L [id number] ####Software Writer: VELMA VALADEZ ([id number])[facility] ([facility])[address] [place] [address] Monocytes (Bld) [#/Vol] 0.8 10*3/uL Normal 0.0-0.9 [facility] Comment on above: Performed By: #### L [id number] ####Software Writer: VELMA VALADEZ ([id number])[facility] ([facility])[address] [place] [address] Monocytes/100 WBC (Bld) 9.9 % Normal 5.0-13.0 [facility] Comment on above: Performed By: #### L [id number] ####Software Writer: VELMA VALADEZ ([id number])[facility])[address] [place] [address] NEUTROPHILS ABSOLUTE 5.3 10*3/uL Normal 1.8-7.[address] [facility] Comment on above: Performed By: #### L [id number] ####Software Writer: VELMA VALADEZ ([id number])[facility] ([facility])[address] [place] [address] Neutrophils/100 WBC (Bld) 66.4 % Normal 38.0-82.0 [facility] Comment on above: Performed By: #### L [id number] ####Software Writer: VELMA VALADEZ ([id number])[facility])[address] [place] [address] NRBC 0.0 /100 WBCs Normal 0.0-2.0 [facility] Comment on above: Performed By: #### L [id number] ####Software Writer: VELMA VALADEZ ([id number])[facility])[address] [place] [address] Platelet mean volume (Bld) [Entitic vol] 10.0 fL Normal 9.0-12.7 [facility] Comment on above: Performed By: #### L [id number] ####Software Writer: VELMA [id number])[facility] ([facility])[address] [place] [address] Platelets (Bld) [#/Vol] 266 10*3/uL Normal 140-440 [facility] Comment on above: Performed By: #### L [id number] ####Software Writer: VELMA VALADEZ ([id number])[facility] ([facility])[address] [place] [address] RBC (Bld) [#/Vol] 4.21 10*6/uL Normal 3.80-5.20 [facility] Comment on above: Performed By: #### L [id number] ####Software Writer: VELMA VALADEZ ([id number])[facility] ([facility])[address] [place] [address] WBC (Bld) [#/Vol] 8.1 10*3/uL Normal 3.6-10.7 [facility] Comment on above: Performed By: #### L [id number] ####Software Writer: VELMA VALADEZ ([id number])[facility] ([facility])[address] [place] [address] Consulton 04-04-2024 Consult [facility] Consult Normal [facility] ECG 12-LEADon 04-04-2024 ECG 12-LEAD IMPRESSION: Atrial fibrillation Borderline T abnormalities, inferior leads Compared to ECG 08/28/11 Sinus rhythm no longer noted Electronically Signed On 04-04-2024 03:48:37 EDT by Sourav Swenson [facility] ED Nursing Noteon 04-04-2024 ED Nursing Note Report to Delia Bond RN 04/04/24 0342 [facility] ED Nursing Note Multiple attempts steffen wade to call report to [facility] with phone number provided by tractor 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 Will try again. Shannon Bond RN 04/04/24 0331 [facility] ED Nursing Note [facility] at bedside to transport pt to [facility]. Paperwork with EMS Shannon Bond RN 04/04/24 [id number] [facility] IDNon 04-04-2024 IDN The patient is Moderately Stable - Low risk of patient condition declining or worsening The patient's goals for the shift include safety The clinical goals for the shift include therapeutic aptt Normal [facility] IDN Normal [facility] No Panel Informationon 04-04 Left Pop Rfx 1.1 s [facility] Acute extensive DVT in the right [...] popliteal vein. History of DVT in 2021 [employer] Details A egorge scale, color Doppler imaging, spectral Doppler analysis and B-flow ultrasound was performed. During the study 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 and transverse views were obtained. Pulsed wave doppler was performed. The exam was performed with the patient in the supine position. Overall the study quality was adequate. Study was technically difficult due to: bowel gas. CV CPACS Left MICHELLE 0.62 [facility] Health Left dorsalis pedis BP 78 mmHg [facility] Left posterior tibial 86 mmHg [facility] Right MICHELLE 0.55 [facility] Right arm BP 139 mmHg [facility] Health Right dorsalis pedis BP 65 mmHg [facility] Right posterior tibial 76 mmHg [facility] Right side findings: Resting MICHELLE [...] of RLE discovered just before PVR testing. [employer] A spectral Doppler analysis ultrasound was [...] On 04-04-2024 03:48:37 EDT by Sourav Swenson [facility] [employer] No Panel InformationOrdered By: Sourav Swenson on 04-04-2024 P [place] 0 degrees [facility] [employer] Work Phone: AL Interval 0 ms [facility] [employer] Work Phone: QRS [place] 40 degrees [facility] [employer] Work Phone: QRSD Interval 86 ms [employer] Work Phone: QT Interval 352 ms [employer] Work Phone: QTC Interval 411 ms [employer] Work Phone: T Wave [place] -3 degrees [employer] Work Phone: [employer] Work Phone: Progress Noteon 04-04-2024 Progress Note Normal [employer] [facility] Progress Note Normal [employer] [facility] Vital signsOrdered By: Cathy Swenson on 04-04-2024 Heart rate 82 /min bpm [employer] Work Phone: aPTT Coag (Bld) [Time]on aPTT Coag (PPP) [Time] 81.8 s High 20.0 - 30.5 s [facility] Interpretation and review of laboratory results Abnormal [facility] NOTE: The therapeuti c time for Heparin anticoagulation, based on Xa activity inhibition, is an APTT of 46-80 seconds. [facility] aPTT Coag (PPP) [Time] 81.4 s High 20.0 - 30.5 s [facility] Interpretation and review of laboratory results Abnormal [facility] NOTE: The therapeuti c time for Heparin anticoagulation, based on Xa activity inhibition, is an APTT of 46-80 seconds. [facility] aPTT Coag (Bld) [Time]Ordere d By: Devika Eisenberg on 04-04-2024 aPTT Coag (PPP) [Time] 132.2 s Critically high 20 .0 - 30.5 s [facility] Interpretation and review of laboratory results Abnormal [facility] NOTE: The therapeuti c time for Heparin anticoagulation, based on Xa activity inhibition, is an APTT of 46-80 seconds. [facility] [employer] APTTon 04-03-2024 aPTT Coag (Bld) [Time] 25.6 s Normal 20.0-30.5 [facility] Comment on above: Result Comment: BUBBA Garcia COMMENTS:NOTE: The therapeutic time for Heparin anticoagulation, based on Xa activity inhibition, is an APTT of 46-80 seconds. Performed By: #### L [id number] ####Software Writer: MARYLOU SEGURAPerriJHONATHAN ([id number])[facility] ([facility])[address] [place] [address] CBC (HEMOGRAM)on 04-03-2024 Erythrocyte distribution width (RBC) [Ratio] 14.4 % Normal 11.5-15.0 [facility] Comment on above: Performed By: #### L [id number] ####Software Writer: MARYLOU LALO ([id number])[facility])[address] Hematocrit (Bld) [Volume fraction] 38.6 % Normal 35.0-47.0 [facility] Comment on above: Performed By: #### L [id number] ####Software Writer: MARYLOUSVEN MAY ([id number])[facility] ([facility])[address] [place] [address] Hemoglobin (Bld) [Mass/Vol] 12.7 g/dL Normal 11.7-16.0 [facility] Comment on above: Performed By: #### L [id number] ####Software Writer: MARYLOU SEGURAPerriJHONATHAN ([id number])[facility] ([facility])[address] [place] [address] MCH (RBC) [Entitic mass] 30.4 pg Normal 26.0-34.0 [facility] Comment on above: Performed By: #### L [id number] ####Software Writer: MARYLOU KUMARIJHONATHAN ([id number])[facility])[address] [place] [address] MCHC 32.9 % Normal 30.5-36.0 [facility] Comment on above: Performed By: #### L [id number] ####Software Writer: MARYLOU KUMARIJHONATHAN ([id number])[facility] ([facility])[address] [place] [address] MCV (RBC) [Entitic vol] 92.3 fL Normal 77.0-99.0 [facility] Comment on above: Performed By: #### L [id number] ####Software Writer: MARYLOU MAY ([id number])[facility]ITAL[facility] CENTERBossman (SB[facility])[address] Platelet mean volume (Bld) [Entitic vol] 10.0 fL Normal 9.0-12.7 [facility] Comment on above: Performed By: #### L [id number] ####Software Writer: MARYLOU MAY ([id number])[facility]OSPITALSim[facility]ITAL[facility] (SBHLAB)[address] Platelets (Bld) [#/Vol] 283 10*3/uL Normal 140-440 [facility] Comment on above: Performed By: #### L [id number] ####Software Writer: MARYLOU MAY ([id number])[facility])[address] [place] [address] RBC (Bld) [#/Vol] 4.18 10*6/uL Normal 3.80-5.20 [facility] Comment on above: Performed By: #### L [id number] ####Software Writer: MARYLOU MAY ([id number])[facility])[address] WBC (Bld) [#/Vol] 9.3 10*3/uL Normal 3.6-10.7 [facility] Comment on above: Performed By: #### L [id number] ####Software Writer: MARYLOU MAY ([id number])[facility] ([facility])[address] CBC panel Auto (Bld)on 04-03 Erythrocyte distribution width (RBC) [Ratio] 14.4 % 11.5 - 15.0 % [facility] Hematocrit (Bld) [Volume fraction] 38.6 % 35.0 - 47.0 % [facility] Hemoglobin (Bld) [Mass/Vol] 12.7 g/dL 11.7 - 16.0 g/dL [facility] Campus Interpretation and review of laboratory results Normal [facility] MCH (RBC) [Entitic mass] 30.4 pg 26.0 - 34.0 pg [facility] MCHC (RBC) [Mass/Vol] 32.9 % 30.5 - 36.0 % [facility] MCV (RBC) [Entitic vol] 92.3 fL 77.0 - 99.0 fL [facility] Platelet mean volume (Bld) [Entitic vol] 10.0 fL 9.0 - 12.7 fL [facility] Platelets (Bld) [#/Vol] 283 10*3/uL 140 - 440 10*3/uL [facility] RBC (Bld) [#/Vol] 4.18 10*6/uL 3.80 - 5.2 0 10*6/uL [facility] WBC (Bld) [#/Vol] 9.3 10*3/uL 3.6 - 10.7 10*3/uL [facility] COMPREHENSIVE METABOLIC PANE Gilberto 04-03-2024 Albumin [Mass/Vol] 4.3 g/dL Normal 3.5-5.0 [facility] Comment on above: Performed By: #### [place] AB103, [id number], LAB17 ####Software Writer: MAYRLOU MAY ([id number])[facility] (SBHLAB)[address] ALP [Catalytic activity/Vol] 91 U/L Normal 38-126 [facility] Comment on above: Performed By: #### [place]on REIS103, KYF201, LAB17 ####Software Writer: MARYLOU MAY ([id number])[facility] (SBHLAB)[address] ALT [Catalytic activity/Vol] 10 U/L Normal 0-34 [facility] Comment on above: Performed By: #### L AB103, YLL617, LAB17 ####Software Writer: MARYLOU MAY ([id number])[facility] (SBHLAB)[address] Anion gap [Moles/Vol] 9 mmol/L Normal 3-[address] [facility] Comment on above: Performed By: #### L AB103, XZA424, LAB17 ####Software Writer: MARYLOU LALO ([id number])[facility] (SBHLAB)[address] [place] [address] [place] AST [Catalytic activity/Vol] 19 U/L Normal 15-46 [facility] Comment on above: Performed By: #### L AB103, FAT844, LAB17 ####Software Writer: MARYLOU LALO ([id number])[facility]ITAL[facility] (SBHLAB)[address] Bilirubin [Mass/Vol] 1.1 mg/dL Normal 0.2-1.3 [facility] Comment on above: Performed By: #### L AB103, DSV532, LAB17 ####Software Writer: MARYLOU LALO ([id number])[facility]ITAL[facility] SERRATO (SBHLAB)[address] Calcium [Mass/Vol] 9.3 mg/dL Normal 8.4-10.4 [facility] Comment on above: Performed By: #### L AB103, JWX419, LAB17 ####Software Writer: MARYLOU SEGURAPAIGEJHONATHAN ([id number])[facility]ITAL[facility] (SBHLAB)[address] [place] [address] [place] Chloride [Moles/Vol] 107 mmol/L Normal 98-107 [facility] Comment on above: Performed By: #### L AB103, OBB659, LAB17 ####Software Writer: MARYLOU KUMARIJHONATHAN ([id number])[facility]ITAL[facility] (SBHLAB)[address] [place] [address] [place] CO2 [Moles/Vol] 20 mmol/L Low 22-30 [facility] Comment on above: Performed By: #### L AB103, TUT050, LAB17 ####Software Writer: MARYLOU MAY ([id number])[facility]ITAL[facility] (SBHLAB)[address] [place] [address] [place] Creatinine [Mass/Vol] 1.54 mg/dL High 0.52-1.[address] [facility] Comment on above: Performed By: #### L AB103, PLU761, LAB17 ####Software Writer: MARYLOU MAY ([id number])[facility] ([facility])[address] GLOMERULAR FILTRATION RATE ML/MIN/1.73 SQ M.PREDICTED 33.2 mL/min/1.73m*2 Low >60.0 [facility] Comment on above: Result Comment: Calc ulation based on the Chronic Kidney Disease Epidemiology Collaboration (CKD-EPI) equation refit without adjustment for race Performed By: #### L AB103, IKA333, LAB17 ####Software Writer: MARYLOU MAY ([id number])[facility] ([facility])[address] [place] [address] Glucose [Mass/Vol] 115 mg/dL High 70-100 [facility] Comment on above: Performed By: #### Weston DAWSON, KLG579, LAB17 ####Software Writer: MARYLOU MAY ([id number])[facility] ([facility])[address] Potassium [Moles/Vol] 5.7 mmol/L High 3.5-5.[address] [facility] Comment on above: Performed By: #### [place]on REIS103, IWU924, LAB17 ####Software Writer: MARYLOU MAY ([id number])[facility] ([facility])[address] Protein [Mass/Vol] 7.7 g/dL Normal 6.3-8.2 [facility] Comment on above: Performed By: #### L AB103, PEB119, LAB17 ####Software Writer: MARYLOU MAY ([id number])[facility] ([facility])[address] [place] [address] [place] Sodium [Moles/Vol] 135 mmol/L Normal 135-145 [facility] Comment on above: Performed By: #### L AB103, NJG268, LAB17 ####Software Writer: MARYLOU MAY ([id number])[facility] (SBHLAB)[address] Urea nitrogen [Mass/Vol] 29 mg/dL High 7-17 [facility] Comment on above: Performed By: #### L AB103, VSC591, LAB17 ####Software Writer: MARYLOU MAY ([id number])[facility] (SBHLAB)[address] HEAD WO IV CONTRASTon CT HEAD WO IV CONTRAST Normal [facility] CT Head WO contraston 2023 1. No acute finding. Chronic left cerebellar infarct.. Report Dictated on Electronically Signed By: Toño Tang MD Electronically Signed Date/Time: 04/03/2024 9:21 PM EDT [facility] Patient Name: MEL CARVER RD : [...] midline shift. No hydrocephalus. Left globe prosthesis. [facility] Toño Tang MD - 04/03/2024 Patient Name: [...] Electronically Signed Date/Time: 04/03/2024 9:21 PM EDT [facility] Radiology Study observation (narrative) [facility] CT Head WO contrastOrdered B y: Toño Tang on 04-03-2024 [facility] Work Phone: CTA AORTA BL ILIOFEMORAL W [...] Electronically Signed Date/Time: 04/03/2024 9:36 PM EDT [facility] Name: MEL CARVER RD : 1940 [id number] Exam Date/Time: 04/03/2024 21:14 Procedure: CTA AORTA [...] into the mid to distal lower leg. [facility] Toño Tang MD - 04/03/2024 Patient Name: MEL POP : 1940 Exam Date/Time: 04/03/2024 21:14 Procedure: CTA AORTA BL ILIOFEMORAL W WO Ordering Provider: HE, , BERNIE Reason For Exam: Claudication or leg ischemia [...] Signed Date/Time: 04/03/2024 9:36 PM EDT [facility] Radiology Study observation (narrative) [facility] metabolic 1998 panelon 04-03-2024 Albumin [Mass/Vol] 4.3 g/dL 3.5 - 5.0 g/dL [facility] ALP [Catalytic activity/Vol] 91 U/L 38 - 126 U/L [facility] ALT [Catalytic activity/Vol] 10 U/L 0 - 34 U/L [facility] Anion gap [Moles/Vol] 9 mmol/L 3 - 13 mmol/L [facility] AST [Catalytic activity/Vol] 19 U/L 15 - 46 U/L [facility] Bilirubin [Mass/Vol] 1.1 mg/dL 0.2 - 1 .3 mg/dL [facility] Calcium [Mass/Vol] 9.3 mg/dL 8.4 - 10. 4 mg/dL [facility] Chloride [Moles/Vol] 107 mmol/L 98 - 10 7 mmol/L [facility] CO2 [Moles/Vol] 20 mmol/L Low 22 - 30 mmol/L [facility] Creatinine [Mass/Vol] 1.54 mg/dL High 0.52 - 1.04 mg/dL [facility] GFR/1.73 sq M.predicted (S/P/Bld) [Vol rate/Area] 33.2 mL/min Low - PINF [facility] Comment on above: Calculation based on the Chronic Kidney Disease Epidemiology Collaboration (CKD-EPI) equation refit without adjustment for race Glucose [Mass/Vol] 115 mg/dL High 70 - 100 mg/dL [facility] Interpretation and review of laboratory results Abnormal [facility] Potassium [Moles/Vol] 5.7 mmol/L High 3.5 - 5.1 mmol/L [facility] Protein [Mass/Vol] 7.7 g/dL 6.3 - 8.2 g/dL [facility] Sodium [Moles/Vol] 135 mmol/L 135 - 145 mmol/L [facility] Urea nitrogen [Mass/Vol] 29 mg/dL High 7 - 17 mg/dL [facility] ED Nursing Noteon 04-03-2024 ED Nursing Note Normal [facility] ED Provider Noteon ED Provider Note Normal [facility] Laboratory - Chemistry and C hemistry - challengeon 04-03-2024 Troponin I.cardiac [Mass/Vol] 0.014 ng/mL NINF - 0.034 ng/mL [facility] Magnesium [Mass/Vol] 2.3 mg/dL 1.6 - 2 .3 mg/dL [facility] Laboratory - Coagulationon 0 04-03-2024 aPTT Coag (PPP) [Time] 26.7 s 20.0 - 30.5 s [facility] INR Coag (PPP) [Relative time] 1.0 {INR} 0.9 - 1.1 [facility] Comment on above: Recommended Anticoag ulant [...] 11.7 s 9.0 - 1 2.0 s [facility] MAGNESIUMon 04-03-2024 Magnesium [Mass/Vol] 2.3 mg/dL Normal 1.6-2.3 [facility] Comment on above: Performed By: #### L AB103, QFC604, LAB17 ####Software Writer: MARYLOU MAY ([id number])[facility] RO[facility]IO ([facility] [place] [address] Magnesium [Mass/Vol]on 04-03 Interpretation and review of laboratory results Normal [facility] No Panel Informationon 04-03 [facility] Interpretation and review of laboratory results Normal [facility] PROTIME AND APTTon aPTT Coag (Bld) [Time] 26.7 s Normal 20.0-30.5 [facility] Comment on above: Performed By: #### L [id number] ####Software Writer: MARYLOU MAY ([id number])[facility]ITAL[facility] ([facility])[address] [place] [address] INR Coag (PPP) [Relative time] 1.0 {INR} [...] prevent Myocardial Infarction Performed By: #### L [id number] ####Software Writer: MARYLOU MAY ([id number])[facility] ([facility])[address] [place] [address] PT Coag (PPP) [Time] 11.7 s Normal 9.0-12.0 [facility] Comment on above: Performed By: #### L [id number] ####Software Writer: MARYLOU MAY ([id number])[facility] ([facility])[address] [place] [address] TROPONIN Ion 04-03-2024 Troponin I.cardiac [Mass/Vol] 0.014 ng/mL Normal <0.034 [facility] Comment on above: Result Comment: BUBBA Garcia COMMENTS:Patients with high levels of Biotin oral intake (ie >5 mg/day) may have falsely decreased Troponin levels. Performed By: #### L AB103, HWS820, LAB17 ####Software Writer: MARYLOU MAY ([id number])[facility] ([facility])[address] [place] [address] Troponin I.cardiac [Mass/Vol ]on 04-03-2024 Interpretation and review of laboratory results Normal [facility] Patients with high levels of Biotin oral intake (ie >5 mg/day) may have falsely decreased Troponin levels. [facility] aPTT Coag (Bld) [Time]on aPTT Coag (PPP) [Time] 25.6 s 20.0 - 30.5 s [facility] Interpretation and review of laboratory results Normal [facility] NOTE: The therapeuti c time for Heparin anticoagulation, based on Xa activity inhibition, is an APTT of 46-80 seconds. [facility] MR Lower leg - left WO and [...] MD Electronically Signed Date/Time: 06/16/2023 8:10 AM [facility] Patient Name: MEL CARVER RD : 1940 [id number] Exam Date/Time: 06/15/2023 16:21 Procedure: MR TIBIA [...] and lateral ankle resulting from ORIF hardware. [facility] Dimas Woodward MD - 06/16/2023 Patient Name: MEL POP : 1940 [facility]#: [id number] Exam Date/Time: 06/15/2023 16:21 Procedure: MR TIBIA [...] Electronically Signed Date/Time: 06/16/2023 8:10 AM EST [facility] MR Lower leg - left WO and W contrast IVOrdered By: Dimas Woodward on 06-16-2023 [facility] Work Phone: MR Lower leg - left WO and W contrast Cheryl 06-15-2023 [facility] Informationon 05-24 No evidence of venous thrombus in the left lower extremity. Report Dictated on Electronically Signed By: Yasmany Whyte MD Electronically Signed Date/Time: 05/24/2023 11:42 AM [facility] Patient Name: MEL CARVER RD [...] augmentation and normal response to Valsalva maneuver. [facility] Yasmany Whyte MD - 05/24/2023 Patient Name: [...] Electronically Signed Date/Time: 05/24/2023 11:[address] [facility] [address] Neck W contrast Cheryl 02-16 Patient [...] Electronically Signed Date/Time: 03/11/2023 10:28 AM [facility] Efrain Yi MD - 03/11/2023 [...] Electronically Signed Date/Time: 03/11/2023 10:[address] [address] Neck W contrast IVOrdered By: Efrain Yi on 03-11-2023 [facility] Work Phone: CT Neck W contrast Cheryl 02-16 Radiology Study observation (narrative) [facility] alth US Head and neck [...] Electronically Signed Date/Time: 02/24/2023 8:23 AM EDT [facility] Patient Name: MEL CARVER RD : [...] measuring 1.8 x 1.6 x 1.4 cm. [facility] Ryan Mccollum MD - 02/24/2023 Patient Name: MEL POP : 1940 [facility]#: [id number] Exam Date/Time: 02/22/2023 13:44 Procedure: US HEAD [...] Electronically Signed Date/Time: 02/24/2023 8:23 AM EDT [facility] US Head and neck soft tissue Ordered By: Ryan Mccollum on 02-24-2023 [facility] Work Phone: US Head and neck soft tissue on 02-22-2023 Radiology Study observation (narrative) [facility] CONSULT PROGon 06-29-2022 CONSULT PROG HNO ID: [id number] Author: Nemo Petty APRN.NON PROFIT FINANCIAL CONTROLLER Service: Wound/Ostomy Author Type: Nurse Practitioner Type: Consult Progress Note Filed: 06/29/2022 12:51 PM Note Text: WOUND CARE SERVICE PROGRESS PROFESSOR OF SPECIAL EDUCATION NOTE SERVICE DATE: 06/29/2022 SERVICE TIME: 10:20 TIME SPENT (minutes): 30 REASON FOR CONSULT: follow up wound care visit to reassess skin/wounds CHIEF COMPLAINT: right finger wound Subjective HISTORY OF PRESENT ILLNESS: Ms. Jose Alberto Castillo is a 81 year old female who is seen today with Dleia Bruno, Wound/veneer patcher, as a follow up wound care visit [...] (Oral) Resp 18 Ht 162.6 cm (5' 4) Wt 71.2 kg (156 lb 15.5 oz) [...] Wound Image Site Assessment Red;Intact Allie-Wound Assessment [place] Drainage Amount None Treatments Protective Barrier Ointment Dressing Foam- Adhesive Active Orders Date Order Priority Status Authorizing Provider 06/28/22 1423 zinc oxide 20 % ointment Active Iwona Chu DO 06/21/22 1248 DRESSING CARE (SPECIFY) ([place]) Routine Active Fidel Carmen APRN.NON PROFIT FINANCIAL CONTROLLER - Specify:: Apply allevyn foam to coccyx, peel down every shift to assess skin and to apply zinc oxide, change every 3 days or if soiled. 06/21/22 1248 zinc oxide 20 % Active Fidel Carmen APRN.NON PROFIT FINANCIAL CONTROLLER Wound 06/16/22 Incision Knee Left;Posterior (Active) Assessments 06/29/2022 10:27 AM Wound Image Site Assessment Dry;Intact Allie-Wound Assessment Intact Closure Sutures Drainage Amount None Treatments Open to Air No Linked orders to display Wound 06/21/22 0948 Atypical Wound Finger (Comment which one) Right (Active) Assessments 06/29/2022 10:23 AM Wound Image Site Assessment Red;[place] Allie-Wound Assessment Intact Wound Length (cm) 2 cm Wound Width (cm) 2.5 cm Wound Surface Area (cm2) 5 cm2 Wound Depth (cm) 0.1 cm Wound Volume (cm3) 0.5 (more content not included)... Normal [facility] NUTRITIONon 06-29-2022 NUTRITION HNO ID: [id number] Author: Iwona Pelayo RD Service: Nutrition Therapy Author Type: Registered Dietitian Type: Nutrition Filed: 06/29/2022 1:38 PM Note Text: NUTRITION THERAPY PROGRESS NOTE SERVICE DATE: 06/29/2022 SERVICE TIME: 13:30 Nutrition Assessment: Recommended Malnutrition Diagnosis: No Malnutrition Identified (06/23/22 1109 : Parul Mcallister RD) Estimated kilocalorie needs: 5610-3863 Calorie Calculation Method: 25-30 kcals/kg Estimated protein [...] d/c today Anthropometrics: Height: 162.6 cm (5' 4) Weight: 71.2 kg (156 lb 15.5 oz) [...] Billing: $ Reassessment: 1-15 minutes SIGNATURE: Iwona Pleayo RD PATIENT NAME: Mel Castillo DATE: June 29, 2022 TIME: 10:17 AM Normal [facility] PT EDon 06-29-2022 PT ED HNO ID: [id number] Author: Joana Tolbert RPh Service: Pharmacy Author [...] Tolbert [facility] 06-28-2022 [facility] HNO ID: [id number] Author: Iwona Chu DO Service: Hospital Medicine [...] Collette Rahman DO Primary Service: BLAS LAO JOSSELINE MY CONDITION AT DISCHARGE: Stable REASON I [...] micropuncture needle and serially upsized to a 5-Turkish sheath. A venogram was then performed, which [...] time, the sheath was upsized to an 8-Turkish sheath. An intravascular ultrasound was performed. This [...] educational literat (more content not included)... Normal [facility] NURSING PROGon 06-28-2022 NURSING PROG HNO ID: [id number] Author: John Castro RN Service: Nursing Author Type: Registered Nurse Type: Nursing Progress Note Filed: 06/28/2022 2:28 PM Note Text: Other: Ambulatory pulse ox per Dr. Chu SpO2 on Room air at rest: 91% SpO2 while ambulating on Room air: 83% SpO2 while ambulating on 2 liters of oxygen: 91% Normal [facility] Bacteria Spec Resp Culton Bacteria identified Respiratory culture Nom (Unsp spec) CULTURE, RESPIRATORY: Few Normal respiratory radha present ORGANISM ID: 1 Few Lactose fermenting gram negative rods Insignificant colony count. No further workup. GRAM STAIN: Rare Gram positive cocci Few Polymorphonuclear leukocytes Few Epithelial cells Abnormal [facility] Comment on above: Performed By: #### 3 2355-0 #### [facility] CLIA [id number] [address] [place] CONSULT PROGon 06-25-2022 CONSULT PROG HNO ID: [id number] Author: Cirilo Yip RPh Service: Pharmacy Author Type: Pharmacist Type: Consult Progress Note Filed: 06/25/2022 1:49 PM Note Text: PHARMACY ORAL ANTICOAGULATION PATIENT EDUCATION NOTE Oral anticoagulant: apixaban Indication: DVT/PE Patient New to medication: Yes LEARNERS Persons Present: Patient Primary Learner: Patient Mechanical Design Technician Present: No Patient educated on the followin. [...] June 25, 2022 TIME: 1:48 PM Normal [facility] Bacteria Spec Resp Culton Bacteria identified Respiratory culture Nom (Unsp spec) CULTURE, RESPIRATORY: Moderate Normal respiratory radha present GRAM STAIN: Moderate Mixed oral radha Few Polymorphonuclear leukocytes Few Epithelial cells Abnormal [facility] Comment on above: Performed By: #### 3 2355-0 ####[facility] LABORATORYCLIA [id number] [place] [address] [place] Basic metabolic 2000 panelon 06-24-2022 Anion gap [Moles/Vol] 10 mmol/L Normal 9-18 [facility] Comment on above: Order Comment: Speci men Type: BLOOD SPECIMENOrdering Facility: [facility] Address: [address] [place] [address] Performed By: #### 2 4321-2, 49666-8 ####[facility] LABORATORYCLIA [id number] [place] [address] [place] Calcium [Mass/Vol] 9.0 mg/dL Normal 8.5-10.2 [facility] Comment on above: Order Comment: Speci men Type: BLOOD SPECIMENOrdering Facility: [facility] Address: [address] [place] [address] Performed By: #### 2 4321-2, 56525-5 ####[facility] LABORATORYCLIA [id number] [place] [address] [place] Chloride [Moles/Vol] 103 mmol/L Normal 97-105 [facility] Comment on above: Order Comment: Speci men Type: BLOOD SPECIMENOrdering Facility: [facility] Address: [address] [place] [address] Performed By: #### 2 4321-2, 79421-8 ####[facility] LABORATORYCLIA [id number] [place] [address] [place] CO2 [Moles/Vol] 23 mmol/L Normal 22-30 [facility] Comment on above: Order Comment: Speci men Type: BLOOD SPECIMENOrdering Facility: [facility] Address: [address] [place] [address] Performed By: #### 2 4321-2, 95171-1 ####[facility] LABORATORYCLIA [id number] [address] STATES OF [facility] Creatinine [Mass/Vol] 0.73 mg/dL Normal 0.58-0.96 [facility] Comment on above: Order Comment: Rhina mason Type: BLOOD SPECIMENOrdering Facility: [facility] Address: [address] [address] Performed By: #### 2 4321-2, 66290-2 ####[facility]ORESVILLEIA [id number] [address] ESTIMATED GLOMERULAR FILTRATION RATE 82 mL/min/1.73m??? Normal >=60 [facility] Comment on above: Order Comment: Rhina mason Type: BLOOD SPECIMENOrdering Facility: [facility] Address: [address] [place] [address] Result Comment: Isa mated Glomerular Filtration Rate [...] actual GFR. Performed By: #### 2 4321-2, 14143-7 ####[facility] MOORESVILLEIA [id number] [address] STATES OF [facility] Glucose [Mass/Vol] 165 mg/dL High 74-99 [facility] Comment on above: Order Comment: Rhina isabella Type: BLOOD SPECIMENOrdering Facility: [facility] Address: [address] [place] [address] Result Comment: The [place] [employer] (ADA) provides guidance for cutoff [...] Standards of Medical Care in Diabetes 2016, [place] [employer]. Diabetes Care. 2016.39(Suppl 1). Performed By: #### 2 4321-2, 99028-7 ####[facility] LABORATORYCLIA [id number] [address] STATES [place] [facility] Potassium [Moles/Vol] 5.0 mmol/L Normal 3.7-5.1 [facility] Comment on above: Order Comment: Speci men Type: BLOOD SPECIMENOrdering Facility: [facility] Address: [address] [address] Performed By: #### 2 4321-2, 92747-7 ####[facility] LABORATORYCLIA [id number] [address] STATES [facility] Sodium [Moles/Vol] 136 mmol/L Normal 136-144 [facility] Comment on above: Order Comment: Speci men Type: BLOOD SPECIMENOrdering Facility: [facility] Address: [address] [address] Performed By: #### 2 4321-2, 24606-0 ####[facility] LABORATORYCLIA [id number] [address] STATES [facility] Urea nitrogen [Mass/Vol] 14 mg/dL Normal 7-21 [facility] Comment on above: Order Comment: Speci men Type: BLOOD SPECIMENOrdering Facility: [facility] Address: [address] [address] Performed By: #### 2 4321-2, 61526-9 ####[facility] LABORATORYCLIA [id number] [address] OF [place] CBC panel Auto (Bld)on 06-24 Erythrocyte distribution width (RBC) [Ratio] 17.0 % High 11.5-15.0 [facility] Comment on above: Order Comment: Speci men Type: BLOOD SPECIMENOrdering Facility: [facility] Address: [address] [address] Performed By: #### 5 8410-2 ####[facility] LABORATORYCLIA [id number] [address] OF [facility] Hematocrit (Bld) [Volume fraction] 27.2 % Low 36.0-46.0 [facility] Comment on above: Order Comment: Speci men Type: BLOOD SPECIMENOrdering Facility: [facility] Address: [address] [place] [address] Performed By: #### 5 8410-2 ####[facility] LABORATORYCLIA [id number] [address] OF [facility] Hemoglobin (Bld) [Mass/Vol] 8.9 g/dL Low 11.5-15.5 [facility] Comment on above: Order Comment: Speci men Type: BLOOD SPECIMENOrdering Facility: [facility] Address: [address] [place] [address] Performed By: #### 5 8410-2 ####[facility] LABORATORYCLIA [id number] [address] MCH (RBC) [Entitic mass] 30.9 pg Normal 26.0-34.0 [facility] Comment on above: Order Comment: Speci men Type: BLOOD SPECIMENOrdering Facility: [facility] Address: [address] [place] [address] Performed By: #### 5 8410-2 ####[facility] LABORATORYCLIA [id number] [address] [place] MCHC (RBC) [Mass/Vol] 32.7 g/dL Normal 30.5-36.0 [facility] Comment on above: Order Comment: Speci men Type: BLOOD SPECIMENOrdering Facility: [facility] Address: [address] [place] [address] Performed By: #### 5 8410-2 ####[facility] LABORATORYCLIA [id number] [address] MCV (RBC) [Entitic vol] 94.4 fL Normal 80.0-100.0 [facility] Comment on above: Order Comment: Speci men Type: BLOOD SPECIMENOrdering Facility: [facility] Address: [address] [address] Performed By: #### 5 8410-2 ####[facility] LABORATORYCLIA [id number] [address] [place] Nucleated RBC (Bld) [#/Vol] 0.03 10*3/uL High <0.01 [facility] Comment on above: Order Comment: Speci men Type: BLOOD SPECIMENOrdering Facility: [facility] Address: [address] [address] Performed By: #### 5 8410-2 ####[facility] LABORATORYCLIA [id number] [address] [place] Platelet mean volume (Bld) [Entitic vol] 9.8 fL Normal 9.0-12.7 [facility] Comment on above: Order Comment: Speci men Type: BLOOD SPECIMENOrdering Facility: [facility] Address: [address] [place] [address] Performed By: #### 5 8410-2 ####[facility] LABORATORYCLIA [id number] [address] [place] Platelets (Bld) [#/Vol] 241 10*3/uL Normal 150-400 [facility] Comment on above: Order Comment: Speci men Type: BLOOD SPECIMENOrdering Facility: [facility] Address: [address] [address] Performed By: #### 5 8410-2 ####[facility] LABORATORYCLIA [id number] [address] [place] RBC (Bld) [#/Vol] 2.88 10*6/uL Low 3.90-5.20 [facility] Comment on above: Order Comment: Speci men Type: BLOOD SPECIMENOrdering Facility: [facility] Address: [address] [place] [address] Performed By: #### 5 8410-2 ####[facility] LABORATORYCLIA [id number] [address] [place] WBC (Bld) [#/Vol] 6.37 10*3/uL Normal 3.70-11.00 [facility] Comment on above: Order Comment: Speci men Type: BLOOD SPECIMENOrdering Facility: [facility] Address: [address] [place] [address] Performed By: #### 5 8410-2 ####[facility] LABORATORYCLIA [id number] [address] NT-proBNP SerPl-mCncon 06-24 Natriuretic peptide.B prohormone N-Terminal [Mass/Vol] 2971 pg/mL High <450 [facility] Comment on above: Order Comment: Speci men Type: BLOOD SPECIMENOrdering Facility: [facility] Address: [address] [place] [address] Performed By: #### 2 4321-2, 46579-1 ####[facility] LABORATORYCLIA [id number] [address] aPTT PPPon 06-24-2022 aPTT Coag (PPP) [Time] 64.2 s High 23.0-32.4 [facility] Comment on above: Order Comment: Speci men Type: BLOOD SPECIMEN Ordering [facility]: [facility] Address: [address] [place] [address] Performed By: #### T SCR #### [facility] CLIA [id number] [address] OF [facility] aPTT Coag (PPP) [Time] 45.8 s High 23.0-32.4 [facility] Comment on above: Order Comment: Speci men Type: BLOOD SPECIMENOrdering Facility: [facility] Address: [address] [place] [address] Performed By: #### 3 2355-0 #### [facility] CLIA [id number] [address] aPTT Coag (PPP) [Time] 116.8 s High 28.5-34.0 [facility] Comment on above: Order Comment: Speci men Type: BLOOD SPECIMENOrdering Facility: [facility] Address: [address] [place] [address] Performed By: #### 1 4979-9 ####[facility] LABORATORYCLIA [id number] [place] [address] [place] ALLIED HEALTHon 06-23-2022 ALLIED HEALTH HNO ID: [id number] Author: Mikel Coronado RT(R) Service: Radiology Author [...] RT(R) June 23, 2022 9:41 PM Normal [facility] CBC panel Auto (Bld)on 06-23 Erythrocyte distribution width (RBC) [Ratio] 16.6 % High 11.5-15.0 [facility] Comment on above: Order Comment: Speci men Type: BLOOD SPECIMENOrdering Facility: [facility] Address: [address] [place] [address] Performed By: #### 5 8410-2 ####[facility] LABORATORYCLIA [id number] [address] [place] Hematocrit (Bld) [Volume fraction] 29.6 % Low 36.0-46.0 [facility] Comment on above: Order Comment: Speci men Type: BLOOD SPECIMENOrdering Facility: [facility] Address: [address] [place] [address] Performed By: #### 5 8410-2 ####[facility] LABORATORYCLIA [id number] [address] Hemoglobin (Bld) [Mass/Vol] 9.5 g/dL Low 11.5-15.5 [facility] Comment on above: Order Comment: Speci men Type: BLOOD SPECIMENOrdering Facility: [facility] Address: [address] [place] [address] Performed By: #### 5 8410-2 ####[facility] LABORATORYCLIA [id number] [address] MCH (RBC) [Entitic mass] 30.4 pg Normal 26.0-34.0 [facility] Comment on above: Order Comment: Speci men Type: BLOOD SPECIMENOrdering Facility: [facility] Address: [address] [place] [address] Performed By: #### 5 8410-2 ####[facility] LABORATORYCLIA [id number] [address] MCHC (RBC) [Mass/Vol] 32.1 g/dL Normal 30.5-36.0 [facility] Comment on above: Order Comment: Speci men Type: BLOOD SPECIMENOrdering Facility: [facility] Address: [address] [place] [address] Performed By: #### 5 8410-2 ####[facility] LABORATORYCLIA [id number] [address] STATES [facility] MCV (RBC) [Entitic vol] 94.6 fL Normal 80.0-100.0 [facility] Comment on above: Order Comment: Speci men Type: BLOOD SPECIMENOrdering Facility: [facility] Address: [address] [place] [address] Performed By: #### 5 8410-2 ####[facility] LABORATORYCLIA [id number] [place] [address] [place] Nucleated RBC (Bld) [#/Vol] 0.07 10*3/uL High <0.01 [facility] Comment on above: Order Comment: Speci men Type: BLOOD SPECIMENOrdering Facility: [facility] Address: [address] [place] [address] Performed By: #### 5 8410-2 ####[facility] LABORATORYCLIA [id number] [place] [address] [place] Platelet mean volume (Bld) [Entitic vol] 9.9 fL Normal 9.0-12.7 [facility] Comment on above: Order Comment: Speci men Type: BLOOD SPECIMENOrdering Facility: [facility] Address: [address] [place] [address] Performed By: #### 5 8410-2 ####[facility] LABORATORYCLIA [id number] [place] [address] [place] Platelets (Bld) [#/Vol] 241 10*3/uL Normal 150-400 [facility] Comment on above: Order Comment: Speci men Type: BLOOD SPECIMENOrdering Facility: [facility] Address: [address] [place] [address] Performed By: #### 5 8410-2 ####[facility] LABORATORYCLIA [id number] [place] [address] [place] RBC (Bld) [#/Vol] 3.13 10*6/uL Low 3.90-5.20 [facility] Comment on above: Order Comment: Speci men Type: BLOOD SPECIMENOrdering Facility: [facility] Address: [address] [place] [address] Performed By: #### 5 8410-2 ####[facility] LABORATORYCLIA [id number] [place] [address] [place] WBC (Bld) [#/Vol] 6.86 10*3/uL Normal 3.70-11.00 [facility] Comment on above: Order Comment: Speci men Type: BLOOD SPECIMENOrdering Facility: [facility] Address: [address] [place] [address] Performed By: #### 5 8410-2 ####[facility] LABORATORYCLIA [id number] [place] [address] [facility] NUTRITIONon 06-23-2022 NUTRITION HNO ID: [id number] Author: Parul Mcallister RD Service: Nutrition Therapy Author Type: Registered Dietitian Type: Nutrition Filed: 06/23/2022 2:28 PM Note Text: NUTRITION THERAPY INITIAL ASSESSMENT SERVICE DATE: 06/23/2022 SERVICE TIME: 11:09 AM Nutrition Assessment: Recommended Malnutrition Diagnosis: No Malnutrition Identified Nutrition Diagnosis: Problem: Suboptimal protein/energy intake Related to: Inability to consume sufficient nutrients As evidenced by: Patient/family self-report;Intake records Estimated kilocalorie needs: 0137-3798 Calorie Calculation Method: 25-30 kcals/kg Estimated protein [...] 06/22/22 1125 Anthropometrics: Height: 162.6 cm (5' 4) Weight: 71.2 kg (156 lb 15.5 oz) [...] June 23, 2022 TIME: 11:09 AM Normal [facility] XR CHEST 2V FRONTAL/LATon XR [...] sites of pneumonia. Small bilateral pleural effusions. 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 Transcribe Date/Time: Jun 24 2022 6:34A Dictated by : DI MINER MD This examination was interpreted and the report reviewed and electronically signed by: DI MINER MD on Jun 24 2022 6:36AM EST [id number] Normal [facility] aPTT PPPon 06-23-2022 aPTT Coag (PPP) [Time] 46.7 s High 23.0-32.4 [facility] Comment on above: Order Comment: Speci men Type: BLOOD SPECIMENOrdering Facility: [facility] Address: [address] [place] [address] Performed By: #### 1 4979-9 ####[facility] LABORATORYCLIA [id number] [address] aPTT Coag (PPP) [Time] 53.8 s High 23.0-32.4 [facility] Comment on above: Order Comment: Speci men Type: BLOOD SPECIMENOrdering Facility: [facility] Address: [address] [place] [address] Performed By: #### 1 4979-9 ####[facility] LABORATORYCLIA [id number] [address] aPTT Coag (PPP) [Time] 114.5 s High 23.0-32.4 [facility] Comment on above: Order Comment: Speci men Type: BLOOD SPECIMEN [facility] Address: [address] [place] [address] Performed By: #### T SCR #### [facility] CLIA [id number] [address] CBC W Auto Differential pane l (Bld)on 06-22-2022 Basophils (Bld) [#/Vol] 0.03 10*3/uL Normal <0.11 [facility] Comment on above: Order Comment: Speci men Type: BLOOD SPECIMENOrdering Facility: [facility] Address: [address] [place] [address] Result Comment: Diff erential confirmed by visual scan of peripheral blood smear slide Performed By: #### 5 7021-8 ####[facility] LABORATORYCLIA [id number] [address] Basophils/100 WBC (Bld) 0.5 % Normal A [facility] Comment on above: Order Comment: Speci men Type: BLOOD SPECIMENOrdering Facility: [facility] Address: [address] [place] [address] Performed By: #### 5 7021-8 ####[facility] LABORATORYCLIA [id number] [address] Differential cell count method Nom (Bld) Auto Normal [facility] Comment on above: Order Comment: Speci men Type: BLOOD SPECIMENOrdering Facility: [facility] Address: [address] [place] [address] Performed By: #### 5 7021-8 ####[facility] LABORATORYCLIA [id number] [address] [place] Eosinophils (Bld) [#/Vol] 10*3/uL Normal <0.46 [facility] Comment on above: Order Comment: Speci men Type: BLOOD SPECIMENOrdering Facility: [facility] Address: [address] [place] [address] Performed By: #### 5 7021-8 ####[facility] LABORATORYCLIA [id number] [address] Eosinophils/100 WBC (Bld) 0.0 % Normal [facility] Comment on above: Order Comment: Speci men Type: BLOOD SPECIMENOrdering Facility: [facility] Address: [address] [place] [address] Performed By: #### 5 7021-8 ####[facility] LABORATORYCLIA [id number] [address] [place] Erythrocyte distribution width (RBC) [Ratio] 16.2 % High 11.5-15.0 [facility] Comment on above: Order Comment: Speci men Type: BLOOD SPECIMENOrdering Facility: [facility] Address: [address] [place] [address] Performed By: #### 5 7021-8 ####[facility] LABORATORYCLIA [id number] [address] [place] Hematocrit (Bld) [Volume fraction] 25.1 % Low 36.0-46.0 [facility] Comment on above: Order Comment: Speci men Type: BLOOD SPECIMENOrdering Facility: [facility] Address: [address] [place] [address] Performed By: #### 5 7021-8 ####[facility] LABORATORYCLIA [id number] [address] [place] Hemoglobin (Bld) [Mass/Vol] 8.4 g/dL Low 11.5-15.5 [facility] Comment on above: Order Comment: Speci men Type: BLOOD SPECIMENOrdering Facility: [facility] Address: [address] [place] [address] Performed By: #### 5 7021-8 ####[facility] LABORATORYCLIA [id number] [address] [place] Immature granulocytes (Bld) [#/Vol] 0.60 10*3/uL High <0.10 [facility] Comment on above: Order Comment: Speci men Type: BLOOD SPECIMENOrdering Facility: [facility] Address: [address] [place] [address] Performed By: #### 5 7021-8 ####[facility] LABORATORYCLIA [id number] [address] [place] Immature granulocytes/100 WBC (Bld) 10.3 % Normal [facility] Comment on above: Order Comment: Speci men Type: BLOOD SPECIMENOrdering Facility: [facility] Address: [address] [place] [address] Performed By: #### 5 7021-8 ####[facility] LABORATORYCLIA [id number] [place] [address] [place] Lymphocytes (Bld) [#/Vol] 1.38 10*3/uL Normal 1.00-4.00 [facility] Comment on above: Order Comment: Speci men Type: BLOOD SPECIMENOrdering Facility: [facility] Address: [address] [place] [address] Performed By: #### 5 7021-8 ####[facility] LABORATORYCLIA [id number] [address] [place] Lymphocytes/100 WBC (Bld) 23.7 % Normal [facility] Comment on above: Order Comment: Speci men Type: BLOOD SPECIMENOrdering Facility: [facility] Address: [address] [place] [address] Performed By: #### 5 7021-8 ####[facility] LABORATORYCLIA [id number] [address] MCH (RBC) [Entitic mass] 31.2 pg Normal 26.0-34.0 [facility] Comment on above: Order Comment: Speci men Type: BLOOD SPECIMENOrdering Facility: [facility] Address: [address] [place] [address] Performed By: #### 5 7021-8 ####[facility] LABORATORYCLIA [id number] [address] MCHC (RBC) [Mass/Vol] 33.5 g/dL Normal 30.5-36.0 [facility] Comment on above: Order Comment: Speci men Type: BLOOD SPECIMENOrdering Facility: [facility] Address: [address] [place] [address] Performed By: #### 5 7021-8 ####[facility] LABORATORYCLIA [id number] [address] MCV (RBC) [Entitic vol] 93.3 fL Normal 80.0-100.0 [facility] Comment on above: Order Comment: Speci men Type: BLOOD SPECIMENOrdering Facility: [facility] Address: [address] [place] [address] Performed By: #### 5 7021-8 ####[facility] LABORATORYCLIA [id number] [address] Monocytes (Bld) [#/Vol] 0.50 10*3/uL Normal <0.87 [facility] Comment on above: Order Comment: Speci men Type: BLOOD SPECIMENOrdering Facility: [facility] Address: [address] [place] [address] Performed By: #### 5 7021-8 ####[facility] LABORATORYCLIA [id number] [address] [place] Monocytes/100 WBC (Bld) 8.6 % Normal A [facility] Comment on above: Order Comment: Speci men Type: BLOOD SPECIMENOrdering Facility: [facility] Address: [address] [place] [address] Performed By: #### 5 7021-8 ####[facility] LABORATORYCLIA [id number] [address] [place] Neutrophils (Bld) [#/Vol] 3.31 10*3/uL Normal 1.45-7.50 [facility] Comment on above: Order Comment: Speci men Type: BLOOD SPECIMENOrdering Facility: [facility] Address: [address] [place] [address] Performed By: #### 5 7021-8 ####[facility] LABORATORYCLIA [id number] [address] Neutrophils/100 WBC (Bld) 56.9 % Normal [facility] Comment on above: Order Comment: Speci men Type: BLOOD SPECIMENOrdering Facility: [facility] Address: [address] [place] [address] Performed By: #### 5 7021-8 ####[facility] LABORATORYCLIA [id number] [address] [place] Nucleated RBC (Bld) [#/Vol] 0.10 10*3/uL High <0.01 [facility] Comment on above: Order Comment: Speci men Type: BLOOD SPECIMENOrdering Facility: [facility] Address: [address] [place] [address] Performed By: #### 5 7021-8 ####[facility] LABORATORYCLIA [id number] [address] [place] Nucleated RBC/100 WBC (Bld) [Ratio] 1.7 /100 WBC Normal [facility] Comment on above: Order Comment: Speci men Type: BLOOD SPECIMENOrdering Facility: [facility] Address: [address] Performed By: #### 5 7021-8 ####[facility] LABORATORYCLIA [id number] [address] STATES [facility] Platelet mean volume (Bld) [Entitic vol] 9.7 fL Normal 9.0-12.7 [facility] Comment on above: Order Comment: Speci men Type: BLOOD SPECIMENOrdering Facility: [facility] Address: [address] [place] [address] Performed By: #### 5 7021-8 ####[facility] LABORATORYCLIA [id number] [address] [place] Platelets (Bld) [#/Vol] 209 10*3/uL Normal 150-400 [facility] Comment on above: Order Comment: Speci men Type: BLOOD SPECIMENOrdering Facility: [facility] Address: [address] [place] [address] Performed By: #### 5 7021-8 ####[facility] LABORATORYCLIA [id number] [place] [address] [place] RBC (Bld) [#/Vol] 2.69 10*6/uL Low 3.90-5.20 [facility] Comment on above: Order Comment: Speci men Type: BLOOD SPECIMENOrdering Facility: [facility] Address: [address] [place] [address] Performed By: #### 5 7021-8 ####[facility] LABORATORYCLIA [id number] [address] [place] WBC (Bld) [#/Vol] 5.82 10*3/uL Normal 3.70-11.00 [facility] Comment on above: Order Comment: Speci men Type: BLOOD SPECIMENOrdering Facility: [facility] Address: [address] [place] [address] Performed By: #### 5 7021-8 ####[facility] LABORATORYCLIA [id number] [address] [place] CONSULT PROGon 06-22-2022 CONSULT PROG HNO ID: [id number] Author: Eliza Martin APRN.[employer] MANAGER Service: Gastroenterology Author Type: Nurse Specialist Type: [...] (Src) 97.5 (Oral) Resp 20 Ht 5' 4 (1.63m) Wt 156 lb 15.5 oz (71.2kg) [...] stool softene (more content not included)... Normal [facility] Comprehensive metabolic 2000 panelon 06-22-2022 Albumin [Mass/Vol] 2.4 g/dL Low 3.9-4.9 [facility] Comment on above: Order Comment: Speci men Type: BLOOD SPECIMENOrdering Facility: [facility] Address: [address] [address] Performed By: #### 2 4323-8 ####[facility] LABORATORYCLIA [id number] [place] [address] [place] ALP [Catalytic activity/Vol] 129 U/L High 34-123 [facility] Comment on above: Order Comment: Speci men Type: BLOOD SPECIMENOrdering Facility: [facility] Address: [address] [address] Performed By: #### 2 4323-8 ####[facility] LABORATORYCLIA [id number] [place] [address] [place] ALT With P-5'-P [Catalytic activity/Vol] 21 U/L Normal 7-38 [facility] Comment on above: Order Comment: Speci men Type: BLOOD SPECIMENOrdering Facility: [facility] Address: [address] [place] [address] Performed By: #### 2 4323-8 ####[facility] LABORATORYCLIA [id number] [address] [place] Anion gap [Moles/Vol] 10 mmol/L Normal 9-18 [facility] Comment on above: Order Comment: Speci men Type: BLOOD SPECIMENOrdering Facility: [facility] Address: [address] [place] [address] Performed By: #### 2 4323-8 ####[facility] LABORATORYCLIA [id number] [address] AST With P-5'-P [Catalytic activity/Vol] 19 U/L Normal 13-35 [facility] Comment on above: Order Comment: Speci men Type: BLOOD SPECIMENOrdering Facility: [facility] Address: [address] [place] [address] Performed By: #### 2 4323-8 ####[facility] LABORATORYCLIA [id number] [address] [place] Bilirubin [Mass/Vol] 0.6 mg/dL Normal 0.2-1.3 [facility] Comment on above: Order Comment: Speci men Type: BLOOD SPECIMENOrdering Facility: [facility] Address: [address] [place] [address] Performed By: #### 2 4323-8 ####[facility] LABORATORYCLIA [id number] [address] OF [facility] Calcium [Mass/Vol] 8.6 mg/dL Normal 8.5-10.2 [facility] Comment on above: Order Comment: Speci men Type: BLOOD SPECIMENOrdering Facility: [facility] Address: [address] [address] Performed By: #### 2 4323-8 ####[facility] LABORATORYCLIA [id number] [address] [place] Chloride [Moles/Vol] 105 mmol/L Normal 97-105 [facility] Comment on above: Order Comment: Speci men Type: BLOOD SPECIMENOrdering Facility: [facility] Address: [address] [place] [address] Performed By: #### 2 4323-8 ####[facility] LABORATORYCLIA [id number] [address] [place] CO2 [Moles/Vol] 21 mmol/L Low 22-30 [facility] Comment on above: Order Comment: Speci men Type: BLOOD SPECIMENOrdering Facility: [facility] Address: [address] [place] [address] Performed By: #### 2 4323-8 ####[facility] LABORATORYCLIA [id number] [address] OF [facility] Creatinine [Mass/Vol] 0.88 mg/dL Normal 0.58-0.96 [facility] Comment on above: Order Comment: Speci men Type: BLOOD SPECIMENOrdering Facility: [facility] Address: [address] [place] [address] Performed By: #### 2 4323-8 ####[facility] LABORATORYCLIA [id number] TRAN [address] ESTIMATED GLOMERULAR FILTRATION RATE 66 mL/min/1.73m??? Normal >=60 [facility] Comment on above: Order Comment: Speci men Type: BLOOD SPECIMENOrdering Facility: [facility] Address: [address] [place] [address] Result Comment: Isa mated Glomerular Filtration Rate [...] actual GFR. Performed By: #### 2 4323-8 ####[facility] LABORATORYCLIA [id number] [place] [address] [place] Glucose [Mass/Vol] 95 mg/dL Normal 74-99 [facility] Comment on above: Order Comment: Rhina mason Type: BLOOD SPECIMENOrdering Facility: [facility] Address: [address] [place] [address] Result Comment: The [place] Diabetes Association (ADA) provides guidance for cutoff [...] Standards of Medical Care in Diabetes 2016, [place] [employer]. Diabetes Care. 2016.39(Suppl 1). Performed By: #### 2 4323-8 ####[facility] LABORATORYCLIA [id number] [place] [address] [place] Potassium [Moles/Vol] 4.7 mmol/L Normal 3.7-5.1 [facility] Comment on above: Order Comment: Rhina mason Type: BLOOD SPECIMENOrdering Facility: [facility] Address: [address] [place] [address] Performed By: #### 2 4323-8 ####[facility] LABORATORYCLIA [id number] [place] [address] [place] Protein [Mass/Vol] 5.3 g/dL Low 6.3-8.0 [facility] Comment on above: Order Comment: Rhina mason Type: BLOOD SPECIMENOrdering Facility: [facility] Address: [address] [place] [address] Performed By: #### 2 4323-8 ####[facility] [id number] [address] [place] Sodium [Moles/Vol] 136 mmol/L Normal 136-144 [facility] Comment on above: Order Comment: Rhina mason Type: BLOOD SPECIMENOrdering Facility: [facility] Address: [address] [place] [address] Performed By: #### 2 4323-8 ####[facility] LABORATORYCLIA [id number] [address] STATES [facility] Urea nitrogen [Mass/Vol] 7 mg/dL Normal 7-21 [facility] Comment on above: Order Comment: Rhina mason Type: BLOOD SPECIMENOrdering Facility: [facility] Address: [address] [place] [address] Performed By: #### 2 4323-8 ####[facility] LABORATORYCLIA [id number] [address] [place] H. pylori IgG IA Qlon 2021 H. PYLORI IGG, QUAL Negative Normal Negative [facility] Comment on above: Order Comment: Rhina mason Type: BLOOD SPECIMENOrdering Facility: [facility] Address: [address] [place] [address] Result Comment: Shakeel ot exclude H. pylori infection if the specimen collected 3-4 weeks after onset of symptoms. Performed By: #### 1 7859-0 ####[facility] LABCLIA [id number] [facility] [id number] STATES [place] PT panel Coag (PPP)on 2021 INR Coag (PPP) [Relative time] {INR} Low 0.9-1.3 [facility] Comment on above: Order Comment: Rhina mason Type: BLOOD SPECIMEN [facility] Address: [address] [place] [address] Result Comment: Mayra min K Antagonist (VKA) Therapeutic Range: INR 2 to 3 (Target INR of 2.5) Note: For patients treated with VKA drugs, such as warfarin, the [place] [employer] 2012 Guideline recommends [...] Chest 2012, 141:7S-47S Daren RA, et al. [facility] 2017, 70: 252-289 Performed By: #### T SCR #### [facility] [place] [id number] [address] OF [facility] PT Coag (PPP) [Time] 9.9 s Normal 9.7-13.0 [facility] Comment on above: Order Comment: Speci men Type: BLOOD SPECIMEN [facility] Address: [address] [place], [place] [address] Performed By: #### T SCR #### [facility] CLIA [id number] [address] OF [facility] THERAPY NTon 06-22-2022 THERAPY NT HNO ID: [id number] Author: MAMIE Mortensen/Weston Service: Occupational Therapy Author Type: Occupational Therapist Type: Therapy (PT/OT/Speech/Resp) Filed: 06/22/2022 11:27 AM Note Text: Occupational Therapy Evaluation SERVICE DATE: 06/22/2022 SERVICE TIME: 1037 to 1105 ROOM: [place] [address] Recommended Discharge Disposition: Subacute/SNF Recommended Discharge Disposition [...] time Occupational Factors Life Roles: Retired;Parent;Family Member;Friend;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 Normal [facility] US ARTERIAL PVR LOWERon 12-0 US ARTERIAL PVR LOWER * * *Final Report* * * DATE OF EXAM: Jun 22 2022 7:43AM A2U 1107 - US ARTERIAL PVR LOWER / PROCEDURE REASON: Arterial embolism * * * * Physician Interpretation * * * * Non-Invasive Vascular Laboratory [facility] Lower Extremity Arterial Physiology Study [...] all veins 06/16/22. Dopplers study was done. WEATHERIZATION COORDINATOR - Biphasic EDUCATIONAL COORDINATOR - Multiphasic - possible stenosis DP - Monophasic [place] - Biphasic. Technologist: Azar Holcomb Gosia Ordering physician: DWAYNE ZAIDI Interpreting physician: Supriya Ponce MD Final (Updated) RP Womens Volleyball Coach: IRENE Transcriarley Date/Time: Jun 22 2022 7:12A Dictated by : SUPRIYA PONCE MD This examination was interpreted and the report reviewed and electronically signed by: SUPRIYA PONCE MD on Jun 24 2022 1:27PM EST [id number] Normal [facility] aPTT PPPon 06-22-2022 aPTT Coag (PPP) [Time] 43.0 s High 23.0-32.4 [facility] Comment on above: Order Comment: Speci men Type: BLOOD SPECIMENOrdering Facility: [facility] Address: [address] [place] [address] Performed By: #### 1 4979-9 ####[facility] LABORATORYCLIA [id number] [place] [address] [place] aPTT Coag (PPP) [Time] 25.6 s Normal 23.0-32.4 [facility] Comment on above: Order Comment: Speci men Type: BLOOD SPECIMEN [facility] Address: [place] [address] Performed By: #### T SCR #### [facility] CLIA [id number] 1 [place] [address] [place] ANES POSTPROC EVALon 022 ANES POSTPROC EVAL HNO ID: [id number] Author: Olu Vasquez MD Service: Anesthesiology Author Type: Physician Type: Anesthesia Postprocedure Evaluation Filed: 06/21/2022 3:20 PM Note Text: POST ANESTHESIA EVALUATION NOTE : 1940 Procedure Summary Date: 06/21/22 Room / Location: [facility] Anesthesia Start: 1134 Anesthesia Stop: [...] June 21, 2022 TIME: 3:19 PM CSN: [id number] Normal [facility] ANES PRE-OPon 12-05-2022 [place] [facility] PRE-OP HNO ID: [id number] Author: Olu Vasquez MD Service: Anesthesiology Author Type: Physician Type: Anesthesia Preprocedure Evaluation Filed: 06/21/2022 11:32 AM Note Text: ANESTHESIOLOGY DAY OF SURGERY NOTE : 1940 Procedure Information Date/Time: 06/21/22 1130 Scheduled providers: Sim Elizabeth MD Procedure: EGD DIAGNOSTIC Location: [place] [facility] Estimated body mass index is 26.94 kg/m? as calculated from the following: Height as of this encounter: 162.6 cm (5' 4). Weight as of this encounter: 71.2 kg [...] and consent discussed: yes. Patient / Responsible Republican agrees to proceed: yes Patient / Surrogate [...] Olu Dietrich (more content not included)... Normal [facility] CONSULT PROGon 06-21-2022 CONSULT PROG HNO ID: [id number] Author: Fidel Carmen APRN.NON PROFIT FINANCIAL CONTROLLER Service: Wound/Ostomy Author Type: Nurse Practitioner Type: Consult Progress Note Filed: 06/21/2022 1:41 PM Note Text: WOUND CARE SERVICE CONSULT PROFESSOR OF SPECIAL EDUCATION NOTE SERVICE DATE: 06/21/2022 SERVICE TIME: 941 TIME SPENT (minutes): 30 REASON FOR CONSULT: MAD buttocks, atypical wound Right middle finger. CHIEF COMPLAINT: Right middle finger Subjective HISTORY OF PRESENT ILLNESS: Ms. Jose Alberto Castillo is a 81 year old female who is seen today with Delia Bruno, Wound/veneer patcher, and presented to hospital with complaints of [...] (Oral) Resp 18 Ht 162.6 cm (5' 4) Wt 71.2 kg (156 lb 15.5 oz) [...] 06/21/2022 9:57 AM Wound Image Site Assessment [place];Red (small open area noted) Allie-Wound Assessment [place];Intact Drainage Amount None Odor None Treatments Cleansed;Protective Barrier Ointment Dressing Foam- Adhesive Dressing Changed Changed Dressing Status Clean;Dry;Intact Active Orders Date Order Priority Status Authorizing Provider 06/21/22 1248 DRESSING CARE (SPECIFY) ([place]) Routine Active Fidel Carmen APRN.NON PROFIT FINANCIAL CONTROLLER - Specify:: Apply allevyn foam to coccyx, peel down every shift to assess skin and to apply zinc oxide, change every 3 days or if soiled. 06/21/22 1248 zinc oxide 20 % Active Fidel Carmen APRN.NON PROFIT FINANCIAL CONTROLLER Wound 06/21/22 0948 Atypical Wound Finger (Comment which one) Right (Active) Assessments 06/21/2022 9:48 AM Wound Image Site Assessment [place];White (shiney) Allie-Wound Assessment Intact Shape irregular Drainage Description Sanguineous (intermittent, per pt.) Drainage Amount None Odor None Treatments Cleansed Dressing Xeroform;Gauze (more content not included)... [facility] Hemoglobin (Bld) [Mass/Vol] 6.9 g/dL Low 11.5-15.5 [facility] Comment on above: Order Comment: Speci men Type: BLOOD SPECIMENOrdering Facility: [facility] Address: [place] [address] Performed By: #### 3 2355-0 #### [facility] CLIA [id number] [address] [place] [id number] [facility] OPERATIVE NOon 06-21-2022 OPERATIVE NO HNO ID: [id number] Author: Sim Elizabeth MD Service: Gastroenterology Author Type: Physician Type: Operative Report Filed: 06/21/2022 12:01 PM Note Text: OPERATIVE/PROCEDURE REPORT LOG ID: [id number] Surgery/Procedure Date: 06/21/2022 Incision/Procedure Start Time: 11:44 AM Incision Close/Procedure End Time: 11:49 AM Surgeon(s)/Proceduralis t(s) and Photocopier Technician(s): Surgeon(s) and Role: * Sim Elizabeth [...] Hpylori serology and treat empirically if positive Smi Elizabeth MD SIGNATURE: Sim Elizabeth MD PATIENT NAME: Mel Castillo DATE: June 21, 2022 TIME: 11:53 AM PAGER/CONTACT #: [phone] Normal [facility] THERAPY NTon 06-21-2022 THERAPY NT HNO ID: [id number] Author: Miranda Burroughs PT Service: Physical Therapy Author Type: Physical Therapist Type: Therapy (PT/OT/Speech/Resp) Filed: 06/21/2022 10:12 AM Note Text: Physical Therapy Evaluation SERVICE DATE: 06/21/2022 SERVICE TIME: 32 to 0855 ROOM: [place] [address] Recommended Discharge Disposition: Subacute/SNF Recommended Discharge Disposition [...] gait and mobility-other Interventions Provided: Evaluation;Therapeutic Activity (72523) $ Evaluation-Moderate (97335) Billed Units: 1 unit Therapeutic Activity (65621) Treatment Minutes: 8 $ Therapeutic Activity (81992) Billed Units: 1 unit Educated pt on [...] therapeutic skills (more content not included)... Normal [facility] TYPE + SCREENon 06-21-2022 ABO AB Normal [facility] Comment on above: Order Comment: Speci men Type: BLOOD SPECIMEN [facility] Address: [address] [place] [address] Performed By: #### T SCR #### [facility] CLIA [id number] [address] [place] [address] HISTORICAL AB SCR STATUS Negative [facility] Comment on above: Order Comment: Speci men Type: BLOOD SPECIMEN [facility] Address: [address] [place] [address] Performed By: #### T SCR #### [facility] CLIA [id number] [address] [place] [address] Rh Nom (Bld) Positive [facility] Comment on above: Order Comment: Speci men Type: BLOOD SPECIMEN [facility] Address: [address] [place] [address] Performed By: #### T SCR #### [facility] CLIA [id number] [address] TYPE AND SCREEN EXPIRATION 06/24/2022 23:59 [facility] Comment on above: Order Comment: Speci men Type: BLOOD SPECIMEN [facility] Address: [address] [place] [address] Performed By: #### T SCR #### [facility] CLIA [id number] [address] OF [facility] ALLIED HEALTHon 06-20-2022 ALLIED HEALTH HNO ID: [id number] Author: RT Tamica(Tiffanie) Service: Radiology Author Type: [...] June 20, 2022 TIME: 3:15 PM Normal [facility] Basic metabolic 2000 panelon 06-20-2022 Anion gap [Moles/Vol] 8 mmol/L Low 9-18 [facility] Comment on above: Order Comment: Speci men Type: BLOOD SPECIMENOrdering Facility: [facility] Address: [address] [place] [address] Performed By: #### 2 4321-2 ####[facility]ORATORYCLIA [id number] [address] [place] Calcium [Mass/Vol] 8.5 mg/dL Normal 8.5-10.2 [facility] Comment on above: Order Comment: Speci men Type: BLOOD SPECIMENOrdering Facility: [facility] Address: [address] [place] [address] Performed By: #### 2 4321-2 ####[facility] LABORATORYCLIA [id number] [address] [place] Chloride [Moles/Vol] 106 mmol/L High 97-105 [facility] Comment on above: Order Comment: Speci men Type: BLOOD SPECIMENOrdering Facility: [facility] Address: [address] [place] [address] Performed By: #### 2 4321-2 ####[facility]ORATORYCLIA [id number] [address] [place] CO2 [Moles/Vol] 22 mmol/L Normal 22-30 [facility] Comment on above: Order Comment: Speci men Type: BLOOD SPECIMENOrdering Facility: [facility] Address: [address] [place] [address] Performed By: #### 2 4321-2 ####[facility]ORATORYCLIA [id number] [address] [place] Creatinine [Mass/Vol] 0.84 mg/dL Normal 0.58-0.96 [facility] Comment on above: Order Comment: Speci men Type: BLOOD SPECIMENOrdering Facility: [facility] Address: [address] [place], [place] [address] Performed By: #### 2 4321-2 ####[facility] LABORATORYCLIA [id number] [place] [address] [place] ESTIMATED GLOMERULAR FILTRATION RATE 69 mL/min/1.73m??? Normal >=60 [facility] Comment on above: Order Comment: Speci isabella Type: BLOOD SPECIMENOrdering Facility: [facility] Address: [address] [place] [address] Result Comment: Isa mated Glomerular Filtration Rate [...] actual GFR. Performed By: #### 2 4321-2 ####[facility]ORESVILLEIA [id number] [place] [address] [place] Glucose [Mass/Vol] 92 mg/dL Normal 74-99 [facility] Comment on above: Order Comment: Rhina mason Type: BLOOD SPECIMENOrdering Facility: [facility] Address: [place] [address] Result Comment: The [place] Diabetes Association (ADA) provides guidance for cutoff [...] Standards of Medical Care in Diabetes 2016, [place] [employer]. Diabetes Care. 2016.39(Suppl 1). Performed By: #### 2 4321-2 ####[facility] LABORATORYCLIA [id number] [place] [id number] [place] Potassium [Moles/Vol] 4.7 mmol/L Normal 3.7-5.1 [facility] Comment on above: Order Comment: Speci men Type: BLOOD SPECIMENOrdering Facility: [facility] Address: [address] [place] [place] [address] Performed By: #### 2 4321-2 ####[facility]ORATORYCLIA [id number] [address] STATES OF [facility] Sodium [Moles/Vol] 136 mmol/L Normal 136-144 [facility] Comment on above: Order Comment: Speci men Type: BLOOD SPECIMENOrdering Facility: [facility] Address: [address] [place] [address] Performed By: #### 2 4321-2 ####[facility] LABORATORYCLIA [id number] [address] STATES OF [facility] Urea nitrogen [Mass/Vol] 16 mg/dL Normal 7-21 [facility] Comment on above: Order Comment: Speci men Type: BLOOD SPECIMENOrdering Facility: [facility] Address: [address] [place] [address] Performed By: #### 2 4321-2 ####[facility] LABORATORYCLIA [id number] [address] STATES OF [facility] CBC panel Auto (Bld)on 06-20 Erythrocyte distribution width (RBC) [Ratio] 15.9 % High 11.5-15.0 [facility] Comment on above: Order Comment: Speci men Type: BLOOD SPECIMENOrdering Facility: [facility] Address: [address] [place] [address] Performed By: #### 3 2355-0 #### [facility] CLIA [id number] [address] Hematocrit (Bld) [Volume fraction] 23.9 % Low 36.0-46.0 [facility] Comment on above: Order Comment: Speci men Type: BLOOD SPECIMENOrdering Facility: [facility] Address: [address] [place] [address] Performed By: #### 3 2355-0 #### [facility] CLIA [id number] [address] Hemoglobin (Bld) [Mass/Vol] 7.8 g/dL Low 11.5-15.5 [facility] Comment on above: Order Comment: Speci men Type: BLOOD SPECIMENOrdering Facility: [facility] Address: [address] [place] [address] Performed By: #### 3 2355-0 #### [facility] CLIA [id number] [address] MCH (RBC) [Entitic mass] 30.7 pg Normal 26.0-34.0 [facility] Comment on above: Order Comment: Speci men Type: BLOOD SPECIMENOrdering Facility: [facility] Address: [address] [place] [address] Performed By: #### 3 2355-0 #### [facility] CLIA [id number] [address] MCHC (RBC) [Mass/Vol] 32.6 g/dL Normal 30.5-36.0 [facility] Comment on above: Order Comment: Speci men Type: BLOOD SPECIMENOrdering Facility: [facility] Address: [address] [place] [address] Performed By: #### 3 2355-0 #### [facility] CLIA [id number] [address] MCV (RBC) [Entitic vol] 94.1 fL Normal 80.0-100.0 [facility] Comment on above: Order Comment: Speci men Type: BLOOD SPECIMENOrdering Facility: [facility] Address: [address] [place] [address] Performed By: #### 3 2355-0 #### [facility] CLIA [id number] [address] Nucleated RBC (Bld) [#/Vol] 0.09 10*3/uL High <0.01 [facility] Comment on above: Order Comment: Speci men Type: BLOOD SPECIMENOrdering Facility: [facility] Address: [address] [place] [address] Performed By: #### 3 2355-0 #### [facility] CLIA [id number] [address] [place] Platelet mean volume (Bld) [Entitic vol] 9.8 fL Normal 9.0-12.7 [facility] Comment on above: Order Comment: Speci men Type: BLOOD SPECIMENOrdering Facility: [facility] Address: [address] [place] [address] Performed By: #### 3 2355-0 #### [facility] CLIA [id number] [address] [place] Platelets (Bld) [#/Vol] 233 10*3/uL Normal 150-400 [facility] Comment on above: Order Comment: Speci men Type: BLOOD SPECIMENOrdering Facility: [facility] Address: [address] [place] [address] Performed By: #### 3 2354-0 #### [facility] CLIA [id number] [address] [place] RBC (Bld) [#/Vol] 2.54 10*6/uL Low 3.90-5.20 [facility] Comment on above: Order Comment: Speci men Type: BLOOD SPECIMENOrdering Facility: [facility] Address: [address] [address] Performed By: #### 3 5-0 #### [facility] CLIA [id number] [address] [place] WBC (Bld) [#/Vol] 9.90 10*3/uL Normal 3.70-11.00 [facility] Comment on above: Order Comment: Speci men Type: BLOOD SPECIMENOrdering Facility: [facility] Address: [address] [address] Performed By: #### 3 2355-0 #### [facility] CLIA [id number] [address] [place] [address] [place] CONSULTon 06-20-2022 CONSULT HNO ID: [id number] Author: Christine Edouard MD Service: ? 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 PAST MEDICAL HISTORY Diagnosis Date Acute bacterial [...] (Src) 97.9 (Oral) Resp 19 Ht 5' 4 (1.63m) Wt 156 lb 15.5 oz (71.2kg) [...] needed woul (more content not included)... Normal [facility] CT ABD/PEL W IVCONon 022 CT ABD/PEL W IVCON * * *Final Report* * * DATE OF EXAM: Jun 20 2022 2:57PM [facility] 0530 - CT ABD/PEL W IVCON [...] bilateral pleural effusions, larger on the right. Sustainable Agriculture Specialist (topogram) images: No additional findings. IMPRESSION: Acute sigmoid diverticulitis. No evidence of perforation or diverticular abscess. Consolidation and volume loss with bronchial wall thickening in both lower lobes and right middle lobe. Small bilateral pleural effusions, larger on the right. Diffuse subcutaneous edema of the left flank extending into the thigh. Bilateral renal cortical scarring and small cysts. Atherosclerotic arterial and aortic calcifications. Womens Volleyball Coach: DEVEN Transcribe Date/Time: Jun 20 2022 3:18P Dictated by : DI MAYES MD This examination was interpreted and the report reviewed and electronically signed by: DI MAYES MD on Jun 20 2022 3:24PM EST [id number] Normal [facility] Hgb Bld-mCncon 06-20-2022 Hemoglobin (Bld) [Mass/Vol] 7.0 g/dL Low 11.5-15.5 [facility] Comment on above: Order Comment: Speci men Type: BLOOD SPECIMEN [facility] Address: [address] [place] [address] Performed By: #### T SCR #### [facility] CLIA [id number] 1 [place] [address] [facility] 06-19-2022 ALLIED HEALTH HNO ID: [id number] Author: Parul Ryan RN Service: Infection Prevention Author Type: ? Type: Allied Health Filed: 06/19/2022 5:49 PM Note Text: INFECTION PREVENTION NOTE Admission Date: 06/16/2022 Patient meets ?COVID Resolved? criteria and isolation has been discontinued as per [facility] guidance. SIGNATURE: Parul Ryan RN PATIENT NAME: Mel Castillo DATE: June 19, 2022 TIME: 5:49 PM PAGER/CONTACT #: Infection Prevention, [phone] Infection Prevention after hours/weekend pager: [phone] Normal [facility] Basic metabolic 2000 panelon 06-19-2022 Anion gap [Moles/Vol] 5 mmol/L Low 9-18 [facility] Comment on above: Order Comment: Speci men Type: BLOOD SPECIMENOrdering Facility: [facility] Address: [address] [place] [address] Performed By: #### 3 2355-0 #### [facility] CLIA [id number] [address] [place] [address] [place] Calcium [Mass/Vol] 8.1 mg/dL Low 8.5-10.2 [facility] Comment on above: Order Comment: Speci men Type: BLOOD SPECIMENOrdering Facility: [facility] Address: [address] [place] [address] Performed By: #### 3 2355-0 #### [facility] CLIA [id number] [address] [place] [address] [place] [place] Chloride [Moles/Vol] 105 mmol/L Normal 97-105 [facility] Comment on above: Order Comment: Speci men Type: BLOOD SPECIMENOrdering Facility: [facility] Address: [address] [place] [address] Performed By: #### 3 2355-0 #### [facility] CLIA [id number] [address] [place] [address] [place] CO2 [Moles/Vol] 23 mmol/L Normal 22-30 [facility] Comment on above: Order Comment: Speci men Type: BLOOD SPECIMENOrdering Facility: [facility] Address: [address] [address] Performed By: #### 3 2355-0 #### [facility] CLIA [id number] [address] Creatinine [Mass/Vol] 0.94 mg/dL Normal 0.58-0.96 [facility] Comment on above: Order Comment: Speci men Type: BLOOD SPECIMENOrdering Facility: [facility] Address: [address] [address] Performed By: #### 3 2355-0 #### [facility] CLIA [id number] [address] ESTIMATED GLOMERULAR FILTRATION RATE 61 mL/min/1.73m??? Normal >=60 [facility] Comment on above: Order Comment: Speci men Type: BLOOD SPECIMENOrdering Facility: [facility] Address: [address] [place] [address] Result Comment: Isa mated Glomerular Filtration Rate [...] GFR. Performed By: #### 3 2355-0 #### [facility] CLIA [id number] [address] Glucose [Mass/Vol] 115 mg/dL High 74-99 [facility] Comment on above: Order Comment: Speci isabella Type: BLOOD SPECIMENOrdering Facility: [facility] Address: [address] [place] [address] Result Comment: The [place] Diabetes Association (ADA) provides guidance for cutoff [...] Standards of Medical Care in Diabetes 2016, [place] [employer]. Diabetes Care. 2016.39(Suppl 1). Performed By: #### 3 2355-0 #### [facility] CLIA [id number] [address] Potassium [Moles/Vol] 4.4 mmol/L Normal 3.7-5.1 [facility] Comment on above: Order Comment: Speci men Type: BLOOD SPECIMENOrdering Facility: [facility] Address: [address] [place] [address] Performed By: #### 3 2355-0 #### [facility] CLIA [id number] [address] Sodium [Moles/Vol] 133 mmol/L Low 136-144 [facility] Comment on above: Order Comment: Speci men Type: BLOOD SPECIMENOrdering Facility: [facility] Address: [address] [place] [address] Performed By: #### 3 2355-0 #### [facility] CLIA [id number] [address] Urea nitrogen [Mass/Vol] 22 mg/dL High 7-21 [facility] Comment on above: Order Comment: Speci men Type: BLOOD SPECIMENOrdering Facility: [facility] Address: [address] [place] [address] Performed By: #### 3 2355-0 #### [facility] CLIA [id number] [address] CBC panel Auto (Bld)on 06-19 Erythrocyte distribution width (RBC) [Ratio] 15.6 % High 11.5-15.0 [facility] Comment on above: Order Comment: Speci men Type: BLOOD SPECIMENOrdering Facility: [facility] Address: [address] [address] Performed By: #### 5 8410-2 ####[facility]ORATORYCLIA [id number] [address] Hematocrit (Bld) [Volume fraction] 24.0 % Low 36.0-46.0 [facility] Comment on above: Order Comment: Speci men Type: BLOOD SPECIMENOrdering Facility: [facility] Address: [address] [place] [address] Performed By: #### 5 8410-2 ####[facility] LABORATORYCLIA [id number] [address] OF [facility] Hemoglobin (Bld) [Mass/Vol] 7.6 g/dL Low 11.5-15.5 [facility] Comment on above: Order Comment: Speci men Type: BLOOD SPECIMENOrdering Facility: [facility] Address: [address] [place] [address] Performed By: #### 5 8410-2 ####[facility] LABORATORYCLIA [id number] [address] STATES OF [facility] MCH (RBC) [Entitic mass] 29.9 pg Normal 26.0-34.0 [facility] Comment on above: Order Comment: Speci men Type: BLOOD SPECIMENOrdering Facility: [facility] Address: [address] [place] [address] Performed By: #### 5 8410-2 ####[facility]ATORYCLIA [id number] [address] [place] MCHC (RBC) [Mass/Vol] 31.7 g/dL Normal 30.5-36.0 [facility] Comment on above: Order Comment: Speci men Type: BLOOD SPECIMENOrdering Facility: [facility] Address: [address] [place] [address] Performed By: #### 5 8410-2 ####[facility]ORATORYCLIA [id number] [place] [address] [place] MCV (RBC) [Entitic vol] 94.5 fL Normal 80.0-100.0 [facility] Comment on above: Order Comment: Speci men Type: BLOOD SPECIMENOrdering Facility: [facility] Address: [address] [place] [address] Performed By: #### 5 8410-2 ####[facility]ORATORYCLIA [id number] [place] [address] [place] Nucleated RBC (Bld) [#/Vol] 0.04 10*3/uL High <0.01 [facility] Comment on above: Order Comment: Speci men Type: BLOOD SPECIMENOrdering Facility: [facility] Address: [address] [place] [address] Performed By: #### 5 8410-2 ####[facility]ORATORYCLIA [id number] [place] [address] [place] Platelet mean volume (Bld) [Entitic vol] 10.0 fL Normal 9.0-12.7 [facility] Comment on above: Order Comment: Speci men Type: BLOOD SPECIMENOrdering Facility: [facility] Address: [address] [address] Performed By: #### 5 8410-2 ####[facility]ATORYCLIA [id number] [address] [place] Platelets (Bld) [#/Vol] 219 10*3/uL Normal 150-400 [facility] Comment on above: Order Comment: Speci men Type: BLOOD SPECIMENOrdering Facility: [facility] Address: [address] [address] Performed By: #### 5 8410-2 ####[facility]ATORYCLIA [id number] [place] [address] [place] RBC (Bld) [#/Vol] 2.54 10*6/uL Low 3.90-5.20 [facility] Comment on above: Order Comment: Speci men Type: BLOOD SPECIMENOrdering Facility: [facility] Address: [address] [address] Performed By: #### 5 8410-2 ####[facility]ORATORYCLIA [id number] [address] WBC (Bld) [#/Vol] 8.55 10*3/uL Normal 3.70-11.00 [facility] Comment on above: Order Comment: Speci men Type: BLOOD SPECIMENOrdering Facility: [facility] Address: [address] [place] [address] Performed By: #### 5 8410-2 ####[facility]ORATORYCLIA [id number] [address] [place] Hemoccult Stl Ql IAon 2021 Lower GI hemoglobin IA Ql (Stl) Positive Abnormal Negative [facility] Comment on above: Order Comment: Speci men Type: BLOOD SPECIMEN [facility] Address: [address] [place] [address] Performed By: #### T SCR #### [facility] CLIA [id number] [address] [place] Hgb Bld-mCncon 06-19-2022 Hemoglobin (Bld) [Mass/Vol] 7.6 g/dL Low 11.5-15.5 [facility] Comment on above: Order Comment: Speci men Type: BLOOD SPECIMENOrdering Facility: [facility] Address: [address] [place] [address] Performed By: #### 7 18-7 ####[facility] LABORATORYCLIA [id number] [address] [place] Magnesium SerPl-mCncon 06-19 Magnesium [Mass/Vol] 1.9 mg/dL Normal 1.7-2.3 [facility] Comment on above: Order Comment: Speci men Type: BLOOD SPECIMENOrdering Facility: [facility] Address: [address] [place] [address] Performed By: #### 3 2355-0 #### [facility] CLIA [id number] [address] [place] OPERATIVE NOon 06-19-2022 OPERATIVE NO HNO ID: [id number] Author: Frida Rodriguez MD Service: Vascular Surgery Author Type: Physician Type: Operative Report Filed: 06/19/2022 2:59 PM Note Text: [facility] - Operative Report MEL GUADARRAMA : 1940 AGE: 81. SEX: F PATIENT TYPE: I HOSP SVC: ICU LOCATION: [facility] ATTENDING PHYSICIAN: DWAYNE ZAIDI [facility] NUMBER: [id number] DATE OF SURGERY/PROCEDURE: 06/16/2022 INCISION/PROCEDURE START TIME: 5:01 PM INCISION CLOSE/PROCEDURE END TIME: 6:58 PM PREOPERATIVE DIAGNOSIS: Left lower extremity deep vein thrombosis. POSTOPERATIVE DIAGNOSIS: Left lower extremity deep vein thrombosis. SURGEON: Frida Rodriguez MD INSTRUMENT DESIGNER: Resident, Emanuel Hull SURGERY/PROCEDURE: Venogram with intravascular [...] micropuncture needle and serially upsized to a 5-Turkish sheath. A venogram was then performed, which [...] time, the sheath was upsized to an 8-Turkish sheath. An intravascular ultrasound was performed. This [...] intensive care unit for further monitoring. Frida Rodrgiuez MD LM:[id number] /[id number] Normal [facility] Phosphate SerPl-mCncon 06-19 Phosphate [Mass/Vol] 2.4 mg/dL Low 2.7-4.8 [facility] Comment on above: Order Comment: Speci men Type: BLOOD SPECIMENOrdering Facility: [facility] Address: [address] [place] [address] Performed By: #### 3 2355-0 #### [facility] CLIA [id number] [address] [place] [address] aPTT PPPon 06-19-2022 aPTT Coag (PPP) [Time] 46.9 s High 23.0-32.4 [facility] Comment on above: Order Comment: Speci men Type: BLOOD SPECIMENOrdering Facility: [facility] Address: [address] [place] [address] Performed By: #### 1 4979-9 ####[facility]ORATORYCLIA [id number] [address] aPTT Coag (PPP) [Time] 83.8 s High 23.0-32.4 [facility] Comment on above: Order Comment: Speci men Type: BLOOD SPECIMENOrdering Facility: [facility] Address: [address] [address] Performed By: #### 3 2355-0 #### [facility] CLIA [id number] [address] [place] [address] OF [facility] Basic metabolic 2000 panelon 06-18-2022 Anion gap [Moles/Vol] 10 mmol/L Normal 9-18 [facility] Comment on above: Order Comment: Speci men Type: BLOOD SPECIMENOrdering Facility: [facility] Address: [address] [place], [place] [address] Performed By: #### 2 4321-2, 69116-5, , 2776-07 ####[facility]ORATORYCLIA [id number] [place] [address] [place] Calcium [Mass/Vol] 8.0 mg/dL Low 8.5-10.2 [facility] Comment on above: Order Comment: Speci men Type: BLOOD SPECIMENOrdering Facility: [facility] Address: [address] [address] Performed By: #### 2 4321-2, 92750-3, , 2776-07 ####[facility]ATORYCLIA [id number] [place] [address] [place] Chloride [Moles/Vol] 102 mmol/L Normal 97-105 [facility] Comment on above: Order Comment: Speci men Type: BLOOD SPECIMENOrdering Facility: [facility] Address: [address] [place] [address] Performed By: #### 2 4321-2, 43708-5, , 2776-07 ####[facility]ATORYCLIA [id number] [place] [address] [place] CO2 [Moles/Vol] 21 mmol/L Low 22-30 [facility] Comment on above: Order Comment: Speci men Type: BLOOD SPECIMENOrdering Facility: [facility] Address: [address] [address] Performed By: #### 2 4321-2, 68247-4, , 2776-07 ####[facility]ATORYCLIA [id number] [place] [address] [place] Creatinine [Mass/Vol] 1.17 mg/dL High 0.58-0.96 [facility] Comment on above: Order Comment: Speci men Type: BLOOD SPECIMENOrdering Facility: [facility] Address: [address] [place] [address] Performed By: #### 2 4321-2, 09874-8, , 2776-07 ####[facility]LEIA [id number] [address] OF [facility] ESTIMATED GLOMERULAR FILTRATION RATE 47 mL/min/1.73m??? Low >=60 [facility] Comment on above: Order Comment: Rhina mason Type: BLOOD SPECIMENOrdering Facility: [facility] Address: [address] [place] [address] Result Comment: Isa mated Glomerular Filtration Rate [...] actual GFR. Performed By: #### 2 4321-2, 95959-1, , 2776-07 ####[facility]LEIA [id number] [address] OF [facility] Glucose [Mass/Vol] 112 mg/dL High 74-99 [facility] Comment on above: Order Comment: Rhina mason Type: BLOOD SPECIMENOrdering Facility: [facility] Address: [address] [place] [address] Result Comment: The [place] Diabetes Association (ADA) provides guidance for cutoff [...] Standards of Medical Care in Diabetes 2016, [place] [employer]. Diabetes Care. 2016.39(Suppl 1). Performed By: #### 2 4321-2, 14011-5, , 2776-07 ####[facility]ATORYCLIA [id number] [address] [place] Potassium [Moles/Vol] 4.4 mmol/L Normal 3.7-5.1 [facility] Comment on above: Order Comment: Speci men Type: BLOOD SPECIMENOrdering Facility: [facility] Address: [address] [place] [address] Performed By: #### 2 4321-2, 10117-2, , 2776- ####[facility]ATORYCLIA [id number] [address] STATES OF [facility] Sodium [Moles/Vol] 133 mmol/L Low 136-144 [facility] Comment on above: Order Comment: Speci men Type: BLOOD SPECIMENOrdering Facility: [facility] Address: [address] [place] [address] Performed By: #### 2 4321-2, 67524-5, , 2776- ####[facility] [id number] [address] STATES [facility] Urea nitrogen [Mass/Vol] 25 mg/dL High 7-21 [facility] Comment on above: Order Comment: Speci men Type: BLOOD SPECIMENOrdering Facility: [facility] Address: [address] [place] [address] Performed By: #### 2 4321-2, 30457-3, , 2776-1 ####[facility]ATORYCLIA [id number] [address] STATES OF [facility] CBC panel Auto (Bld)on 06-18 Erythrocyte distribution width (RBC) [Ratio] 15.6 % High 11.5-15.0 [facility] Comment on above: Order Comment: Speci men Type: BLOOD SPECIMENOrdering Facility: [facility] Address: [address] [place] [address] Performed By: #### 5 8410-2 ####[facility]ATORYCLIA [id number] [address] Hematocrit (Bld) [Volume fraction] 26.8 % Low 36.0-46.0 [facility] Comment on above: Order Comment: Speci men Type: BLOOD SPECIMENOrdering Facility: [facility] Address: [address] [place] [address] Performed By: #### 5 8410-2 ####[facility]ORATORYCLIA [id number] [address] STATES OF [facility] Hemoglobin (Bld) [Mass/Vol] 8.5 g/dL Low 11.5-15.5 [facility] Comment on above: Order Comment: Speci men Type: BLOOD SPECIMENOrdering Facility: [facility] Address: [address] [place] [address] Performed By: #### 5 8410-2 ####[facility]ORATORYCLIA [id number] [address] [place] MCH (RBC) [Entitic mass] 30.1 pg Normal 26.0-34.0 [facility] Comment on above: Order Comment: Speci men Type: BLOOD SPECIMENOrdering Facility: [facility] Address: [address] [place] [address] Performed By: #### 5 8410-2 ####[facility]ORATORYCLIA [id number] [address] [place] MCHC (RBC) [Mass/Vol] 31.7 g/dL Normal 30.5-36.0 [facility] Comment on above: Order Comment: Speci men Type: BLOOD SPECIMENOrdering Facility: [facility] Address: [address] [place] [address] Performed By: #### 5 8410-2 ####[facility]ORATORYCLIA [id number] [address] [place] MCV (RBC) [Entitic vol] 95.0 fL Normal 80.0-100.0 [facility] Comment on above: Order Comment: Speci men Type: BLOOD SPECIMENOrdering Facility: [facility] Address: [address] [place] [address] Performed By: #### 5 8410-2 ####[facility] LABORATORYCLIA [id number] [place] [address] [place] Nucleated RBC (Bld) [#/Vol] 0.03 10*3/uL High <0.01 [facility] Comment on above: Order Comment: Speci men Type: BLOOD SPECIMENOrdering Facility: [facility] Address: [address] [place] [address] Performed By: #### 5 8410-2 ####[facility]ATORYCLIA [id number] [address] [place] Platelet mean volume (Bld) [Entitic vol] 10.2 fL Normal 9.0-12.7 [facility] Comment on above: Order Comment: Speci men Type: BLOOD SPECIMENOrdering Facility: [facility] Address: [address] [place] [address] Performed By: #### 5 8410-2 ####[facility] LABORATORYCLIA [id number] [address] [place] Platelets (Bld) [#/Vol] 234 10*3/uL Normal 150-400 [facility] Comment on above: Order Comment: Speci men Type: BLOOD SPECIMENOrdering Facility: [facility] Address: [address] [place] [address] Performed By: #### 5 8410-2 ####[facility] LABORATORYCLIA [id number] [address] [place] RBC (Bld) [#/Vol] 2.82 10*6/uL Low 3.90-5.20 [facility] Comment on above: Order Comment: Speci men Type: BLOOD SPECIMENOrdering Facility: [facility] Address: [address] [place] [address] Performed By: #### 5 8410-2 ####[facility] LABORATORYCLIA [id number] [address] [place] WBC (Bld) [#/Vol] 8.77 10*3/uL Normal 3.70-11.00 [facility] Comment on above: Order Comment: Speci men Type: BLOOD SPECIMENOrdering Facility: [facility] Address: [facility] [address] [id number] Performed By: #### 5 8410-2 ####[facility] LABORATORYCLIA [id number] [place] [address] [place] OF [facility] CONSULT PROGon 06-18-2022 CONSULT PROG HNO ID: [id number] Author: Jessica Colmenares APRN.NON PROFIT [employer]CIAL [employer]ER Service: Cardiovascular Medicine Author Type: Nurse Practitioner Type: Consult Progress Note Filed: 06/18/2022 2:46 PM Note Text: The ECHO reviewed, EF 59%. No significant valvular abnormalities. Chart reviewed, no further recommendations. Thank you, Jessica Colmenares APRN.NON PROFIT FINANCIAL CONTROLLER Normal [facility] CONSULT PROG HNO ID: [id number] Author: Cirilo Yip RPh Service: Pharmacy Author [...] Cirilo Yip RPh DATE/TIME: 06/18/2022 12:02 PM [facility] CONSULT PROG HNO ID: [id number] Author: Nimo Arzola MD Service: General Surgery [...] (Oral) Resp 18 Ht 162.6 cm (5' 4) Wt 71.2 kg (156 lb 15.5 oz) SpO2 97% BMI 26.94 kg/m? O2 Therapy: Room Air IANDO: Date 06/17/22699 - 06/18/2265806/18/22699 - 06/19/22 0659 Shift 8653-4200 9404-3486 7694-8367 24 Hour Total 8773-2800 8747-4315 7119-1455 24 Hour Total INTAKE IV 350 15 365 Volume (mL) 15 15 Volume (mL) (lactated ringers iv infusion) 350 350 Shift Total 350 15 365 OUTPUT Urine 3536 920 8075 Void (ml) 1450 1450 Output ( External Collection Device 06/16/22 2331) 400 400 # of BMs Stool Incontinence 1 x 1 x Number of BMs 1 x 1 x Shift Total 1776 164 0749 Weight (kg) 71.2 71.2 71.2 71.2 71.2 [...] Hospital Course/Operatio (more content not included)... Normal [facility] Lipid 1996 panelon Cholesterol [Mass/Vol] 139 mg/dL Normal <200 [facility] Comment on above: Order Comment: Rhina mason Type: BLOOD SPECIMENOrdering Facility: [facility] Address: [address] [place] [address] Result Comment: <200 mg/dL, Desirable 200-239 mg/dL, Borderline high >239 mg/dL, High Performed By: #### 2 4321-2, 29123-9, , 2776-07 ####[facility] LABORATORYCLIA [id number] [address] OF [facility] Cholesterol in HDL [Mass/Vol] 56 mg/dL Normal >39 [facility] Comment on above: Order Comment: Rhina mason Type: BLOOD SPECIMENOrdering Facility: [facility] Address: [address] [place] [address] Result Comment: 40-5 9 mg/dL, Acceptable >59 mg/dL, High: Negative risk factor for coronary heart disease <40 mg/dL, Low: Positive risk factor for coronary heart disease Performed By: #### 2 4321-2, 23412-5, , 2776-07 ####[facility] LABORATORYCLIA [id number] [address] OF [facility] Cholesterol in LDL [Mass/Vol] 64 mg/dL Normal <100 [facility] Comment on above: Order Comment: Rhina mason Type: BLOOD SPECIMENOrdering Facility: [facility] Address: [address] [place] [address] Result Comment: <100 mg/dL, Optimal 100-129 mg/dL, Near optimal/above optimal 130-159 mg/dL, Borderline high 160-189 mg/dL, High >189 mg/dL, Very high Secondary prevention optimal LDL Cholesterol levels are recommended to be < 70 mg/dL Performed By: #### 2 4321-2, 62778-5, , 2776-07 ####[facility] LABORATORYCLIA [id number] [address] STATES OF [facility] Cholesterol in LDL/Cholesterol in HDL [Mass ratio] 1.14 {ratio} Normal <2.54 [facility] Comment on above: Order Comment: Speci men Type: BLOOD SPECIMENOrdering Facility: [facility] Address: [address] [place] [address] Result Comment: Refe rence: 1. National Cholesterol Education Program ATP III Guideline At-A-Glance Quick Desk Reference: National Heart, Lung, and Blood [place]. National Institutes of Health. 2001: NIH Publication No. 01-3305. 2. An International Atherosclerosis Society position paper: global recommendations for the management of dyslipidemia: executive summary, Atherosclerosis. 2014: 232(2):410-413. Performed By: #### 2 4321-2, 28498-0, , 2776-07 ####[facility] LABORATORYCLIA [id number] [place] [address] [place] Cholesterol in VLDL [Mass/Vol] 19 mg/dL Normal <30 [facility] Comment on above: Order Comment: Samiri men Type: BLOOD SPECIMENOrdering Facility: [facility] Address: [address] [address] Performed By: #### 2 4321-2, 29397-0, , 2776-07 ####[facility] LABORATORYCLIA [id number] [address] [place] Cholesterol non HDL [Mass/Vol] 83 mg/dL Normal <130 [facility] Comment on above: Order Comment: Samiri men Type: BLOOD SPECIMENOrdering Facility: [facility] Address: [address] [address] Result Comment: <130 mg/dL, Optimal 130-159 mg/dL, Near optimal/above optimal 160-189 mg/dL, Borderline high 190-219 mg/dL, High >219 mg/dL, Very high Secondary prevention optimal non HDL Cholesterol levels are recommended to be <100 mg/dL Performed By: #### 2 4321-2, 34465-6, , 2776-07 ####[facility] LABORATORYCLIA [id number] [address] [place] Cholesterol.total/Pastora sterol in HDL [Mass ratio] 2.48 {ratio} Normal <5.10 [facility] Comment on above: Order Comment: Speci men Type: BLOOD SPECIMENOrdering Facility: [facility] Address: [address] [place] [address] Performed By: #### 2 4321-2, 21327-5, , 2776-07 ####[facility] LABORATORYCLIA [id number] [address] OF [facility] FASTING TIME 8 hrs Normal [facility] Comment on above: Order Comment: Speci men Type: BLOOD SPECIMENOrdering Facility: [facility] Address: [address] [place] [address] Performed By: #### 2 4321-2, 29458-2, , 2776-07 ####[facility] LABORATORYCLIA [id number] [address] [place] Triglyceride [Mass/Vol] 93 mg/dL Normal <150 A [facility] Comment on above: Order Comment: Speci men Type: BLOOD SPECIMENOrdering Facility: [facility] Address: [address] [place] [address] Result Comment: <150 mg/dL, Normal 150-199 mg/dL, Borderline high 200-499 mg/dL, High >499 mg/dL, Very high Performed By: #### 2 4321-2, 52706-2, , 2776-07 ####[facility] LABORATORYCLIA [id number] [place] [address] [place] Magnesium SerPl-mCncon 06-18 Magnesium [Mass/Vol] 2.1 mg/dL Normal 1.7-2.3 [facility] Comment on above: Order Comment: Speci men Type: BLOOD SPECIMENOrdering Facility: [facility] Address: [address] [place] [address] Performed By: #### 2 4321-2, 12892-7, 53551-1, 7-1 ####[facility] LABORATORYCLIA [id number] [place] [address] [place] Phosphate SerPl-mCncon 06-18 Phosphate [Mass/Vol] 3.3 mg/dL Normal 2.7-4.8 [facility] Comment on above: Order Comment: Speci men Type: BLOOD SPECIMENOrdering Facility: [facility] Address: [address] [place] [address] Performed By: #### 2 4321-2, 90589-9, , 2776- ####[facility] LABORATORYCLIA [id number] [address] [place] aPTT PPPon 06-18-2022 aPTT Coag (PPP) [Time] 37.2 s High 23.0-32.4 [facility] Comment on above: Order Comment: Speci men Type: BLOOD SPECIMENOrdering Facility: [facility] Address: [address] [place] [address] Performed By: #### 9 4500-6 #### [facility] CLIA [id number] [address] [place] [address] [place] aPTT Coag (PPP) [Time] 58.8 s High 23.0-32.4 [facility] Comment on above: Order Comment: Speci men Type: BLOOD SPECIMENOrdering Facility: [facility] Address: [address] [place] [address] Performed By: #### 1 4979-9 ####[facility] LABORATORYCLIA [id number] [address] [place] aPTT Coag (PPP) [Time] 127.7 s High 23.0-32.4 [facility] Comment on above: Order Comment: Speci men Type: BLOOD SPECIMEN Ordering Facility: [facility] Address: [place] [address] Performed By: #### T SCR #### [facility] CLIA [id number] [address] OF [facility] ALLIED HEALTHon 06-17-2022 ALLIED HEALTH HNO ID: [id number] Author: RT [place](R) Service: Radiology Author Type: [...] IV DATA: Not applicable SIGNED BY: RT [place](Tiffanie) June 17, 2022 9:30 AM Normal [facility] ALLIED [facility] HNO ID: [id number] Author: Jeremías Bragg II Service: Infection Prevention [...] TIME: 8:27 AM PAGER/CONTACT #: Infection Prevention, [id number] Infection Prevention after hours/weekend pager: [phone] Normal [facility] ANES POSTPROC EVALon 022 ANES POSTPROC EVAL HNO ID: [id number] Author: Larry Moss MD Service: Anesthesiology Author Type: Anesthesiologist Type: Anesthesia Postprocedure Evaluation Filed: 06/17/2022 6:51 AM Note Text: POST ANESTHESIA EVALUATION NOTE : 1940 Procedure Summary Date: 06/16/22 Room / Location: [address] [place] Anesthesia Start: 1609 Anesthesia Stop: [...] June 17, 2022 TIME: 6:50 AM CSN: [id number] Normal [facility] Basic metabolic 2000 panelon 06-17-2022 Anion gap [Moles/Vol] 9 mmol/L Normal 9-18 [facility] Comment on above: Order Comment: Speci men Type: BLOOD SPECIMENOrdering Facility: [facility] Address: [address] [place] [address] Performed By: #### 2 4321-2, , 2776-07 ####[facility] LABORATORYCLIA [id number] [place] [address] [place] Calcium [Mass/Vol] 7.9 mg/dL Low 8.5-10.2 [facility] Comment on above: Order Comment: Speci men Type: BLOOD SPECIMENOrdering Facility: [facility] Address: [address] [place] [address] Performed By: #### 2 4321-2, , 2776-07 ####[facility] LABORATORYCLIA [id number] [place] [address] [place] Chloride [Moles/Vol] 107 mmol/L High 97-105 [facility] Comment on above: Order Comment: Speci men Type: BLOOD SPECIMENOrdering Facility: [facility] Address: [address] [address] Performed By: #### 2 4321-2, , 2776-07 ####[facility] LABORATORYCLIA [id number] [place] [address] [place] CO2 [Moles/Vol] 21 mmol/L Low 22-30 [facility] Comment on above: Order Comment: Speci men Type: BLOOD SPECIMENOrdering Facility: [facility] Address: [address] [address] Performed By: #### 2 4321-2, 90439-62776-07 ####[facility] LABORATORYCLIA [id number] [place] [address] [place] Creatinine [Mass/Vol] 0.99 mg/dL High 0.58-0.96 [facility] Comment on above: Order Comment: Rhina mason Type: BLOOD SPECIMENOrdering Facility: [facility] Address: [address] [address] Performed By: #### 2 4321-2, , 2776-07 ####[facility] LABORATORYCLIA [id number] [place] [address] [place] ESTIMATED GLOMERULAR FILTRATION RATE 57 mL/min/1.73m??? Low >=60 [facility] Comment on above: Order Comment: Rhina mason Type: BLOOD SPECIMENOrdering Facility: [facility] Address: [address] [place] [address] Result Comment: Isa mated Glomerular Filtration Rate [...] Performed By: #### 2 4321-2, , 2776-07 ####[facility] LABORATORYCLIA [id number] [place] [address] [place] [facility] Glucose [Mass/Vol] 84 mg/dL Normal 74-99 [facility] Comment on above: Order Comment: Rhina isabella Type: BLOOD SPECIMENOrdering Facility: [facility] Address: [address] [address] Result Comment: The [place] [employer] (ADA) provides guidance for cutoff [...] Standards of Medical Care in Diabetes 2016, [place] [employer]. Diabetes Care. 2016.39(Suppl 1). Performed By: #### 2 4321-2, , 2776-07 ####[facility] LABORATORYCLIA [id number] [place] [address] [place] Potassium [Moles/Vol] 4.3 mmol/L Normal 3.7-5.1 [facility] Comment on above: Order Comment: Speci isabella Type: BLOOD SPECIMENOrdering Facility: [facility] Address: [address] [address] Performed By: #### 2 4321-2, , 2776-07 ####[facility] [id number] [address] STATES OF [facility] Sodium [Moles/Vol] 137 mmol/L Normal 136-144 [facility] Comment on above: Order Comment: Speci isabella Type: BLOOD SPECIMENOrdering Facility: [facility] Address: [address] [place] [address] Performed By: #### 2 4321-2, , 2776-07 ####[facility] LABORATORYCLIA [id number] [address] [place] Urea nitrogen [Mass/Vol] 27 mg/dL High 7-21 [facility] Comment on above: Order Comment: Speci men Type: BLOOD SPECIMENOrdering Facility: [facility] Address: [address] [address] Performed By: #### 2 4321-2, , 2776-07 ####[facility] LABORATORYCLIA [id number] [address] [place] CBC panel Auto (Bld)on 06-17 Erythrocyte distribution width (RBC) [Ratio] 15.5 % High 11.5-15.0 [facility] Comment on above: Order Comment: Speci men Type: BLOOD SPECIMENOrdering Facility: [facility] Address: [address] [place] [address] Performed By: #### 5 8410-2 ####[facility] LABORATORYCLIA [id number] [address] OF [facility] Hematocrit (Bld) [Volume fraction] 26.6 % Low 36.0-46.0 [facility] Comment on above: Order Comment: Speci men Type: BLOOD SPECIMENOrdering Facility: [facility] Address: [address] [place] [address] Performed By: #### 5 8410-2 ####[facility] LABORATORYCLIA [id number] [address] OF [facility] Hemoglobin (Bld) [Mass/Vol] 8.5 g/dL Low 11.5-15.5 [facility] Comment on above: Order Comment: Speci men Type: BLOOD SPECIMENOrdering Facility: [facility] Address: [address] [place] [address] Performed By: #### 5 8410-2 ####[facility] LABORATORYCLIA [id number] [address] OF [facility] MCH (RBC) [Entitic mass] 30.0 pg Normal 26.0-34.0 [facility] Comment on above: Order Comment: Speci men Type: BLOOD SPECIMENOrdering Facility: [facility] Address: [address] [address] Performed By: #### 5 8410-2 ####[facility] LABORATORYCLIA [id number] [address] [place] MCHC (RBC) [Mass/Vol] 32.0 g/dL Normal 30.5-36.0 [facility] Comment on above: Order Comment: Speci men Type: BLOOD SPECIMENOrdering Facility: [facility] Address: [address] [place] [address] Performed By: #### 5 8410-2 ####[facility] LABORATORYCLIA [id number] [address] OF [facility] MCV (RBC) [Entitic vol] 94.0 fL Normal 80.0-100.0 A [facility] Comment on above: Order Comment: Speci men Type: BLOOD SPECIMENOrdering Facility: [facility] Address: [address] [place] [address] Performed By: #### 5 8410-2 ####[facility] LABORATORYCLIA [id number] [address] [place] Nucleated RBC (Bld) [#/Vol] 0.02 10*3/uL High <0.01 [facility] Comment on above: Order Comment: Speci men Type: BLOOD SPECIMENOrdering Facility: [facility] Address: [address] [place] [address] Performed By: #### 5 8410-2 ####[facility] LABORATORYCLIA [id number] [address] Platelet mean volume (Bld) [Entitic vol] 9.5 fL Normal 9.0-12.7 [facility] Comment on above: Order Comment: Speci men Type: BLOOD SPECIMENOrdering Facility: [facility] Address: [address] [place] [address] Performed By: #### 5 8410-2 ####[facility] LABORATORYCLIA [id number] [address] Platelets (Bld) [#/Vol] 223 10*3/uL Normal 150-400 [facility] Comment on above: Order Comment: Speci men Type: BLOOD SPECIMENOrdering Facility: [facility] Address: [address] [place] [address] Performed By: #### 5 8410-2 ####[facility] LABORATORYCLIA [id number] [address] [place] RBC (Bld) [#/Vol] 2.83 10*6/uL Low 3.90-5.20 [facility] Comment on above: Order Comment: Speci men Type: BLOOD SPECIMENOrdering Facility: [facility] Address: [place] [address] Performed By: #### 5 8410-2 ####[facility] LABORATORYCLIA [id number] [place] [id number] [facility] WBC (Bld) [#/Vol] 8.61 10*3/uL Normal 3.70-11.00 [facility] Comment on above: Order Comment: Speci men Type: BLOOD SPECIMENOrdering Facility: [facility] Address: [address] [place] [id number] Performed By: #### 5 8410-2 ####[facility] LABORATORYCLIA [id number] [place] [id number] [facility] CONSULTon 06-17-2022 CONSULT HNO ID: [id number] Author: García Monique MD Service: Cardiovascular Medicine Author Type: Physician Type: Consults Filed: 06/17/2022 11:14 AM Note Text: CARDIOVASCULAR INTENSIVE CARE UNIT (CVICU) History AND Physical Note PATIENT NAME: Mel Castillo DATE: June 17, 2022 ADMITTED FOR: Subjective HPI Ms. Mel Castillo is a 81 year old female with PMH: - Paroxysmal Afib - GERD - HTN - Hypothyroidism Patient presented to [facility] on 06/16/2022 for evaluation of left [...] her covid symptoms. 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 Comment: This test has been authorized by FDA under an Emergency Use Authorization (EUA). IMAGING: CT chest: No results found for: (more content not included)... Normal [facility] CONSULT PROGon 06-17-2022 CONSULT PROG HNO ID: [id number] Author: Dominique Lauren RPh Service: Pharmacy Author [...] any questions or concerns. SIGNATURE: Dominique Lauren [facility] ED DATE/TIME: 06/17/2022 3:47 PM Normal [facility] CONSULT PROG HNO ID: [id number] Author: Emanuel Hull MD Service: General Surgery [...] questions or concerns Tue-Tue 6a-5p please page [phone]. After 5pm and on Weekends and Holidays, please page [phone] if in ICU or [phone] if on RNF. Subjective SUBJECTIVE: Was able [...] ?F) Resp 17 Ht 162.6 cm (5' 4) Wt 71.2 kg (156 lb 15.5 oz) SpO2 98% BMI 26.94 kg/m? 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 Normal [facility] ECHOon 06-17-2022 Echocardiography Echocardiography Report: Transthoracic Echo [facility] Date of service: 06/17/2022 10:27:[facility] Ordering physician: GARCÍA MONIQUE Indication: Nonsustained atrial fibrillation Technologist: Glendy Pena [facility] Interpreting physician: Nando Costa MD [...] * * Final * * * CC [facility] : [id number] Normal [facility] Magnesium SerPl-mCncon 06-17 Magnesium [Mass/Vol] 2.1 mg/dL Normal 1.7-2.3 [facility] Comment on above: Order Comment: Rhina mason Type: BLOOD SPECIMENOrdering Facility: [facility] Address: [address] [place], [place] [address] Performed By: #### 2 4321-2, , 2776-07 ####[facility] LABORATORYCLIA [id number] [place] [address] [place] Phosphate SerPl-mCncon 06-17 Phosphate [Mass/Vol] 3.8 mg/dL Normal 2.7-4.8 [facility] Comment on above: Order Comment: Rhina mason Type: BLOOD SPECIMENOrdering Facility: [facility] Address: [address] [place], [place] [address] Performed By: #### 2 4321-2, , 2776-07 ####[facility] LABORATORYCLIA [id number] [address] STATES OF [facility] XR CHEST 1V FRONTALon 2021 XR [...] Comparison: None. RESULT: Lines, tubes, and devices: systems tester leads. Hardware noted in the proximal right [...] in both lungs suspicious for multifocal pneumonia. Womens Volleyball Coach: DEVEN Transcribe Date/Time: Jun 17 2022 10:41A Dictated by : DI MINER MD This examination was interpreted and the report reviewed and electronically signed by: DI MINER MD on Jun 17 2022 10:43AM EST [id number] Normal [facility] aPTT PPPon 06-17-2022 aPTT Coag (PPP) [Time] 48.4 s High 23.0-32.4 [facility] Comment on above: Order Comment: Speci men Type: BLOOD SPECIMENOrdering Facility: [facility] Address: [address] [address] Performed By: #### 9 4500-6 #### [facility] CLIA [id number] [address] aPTT Coag (PPP) [Time] 29.4 s Normal 23.0-32.4 [facility] Comment on above: Order Comment: Speci men Type: BLOOD SPECIMENOrdering Facility: [facility] Address: [address] [address] Performed By: #### 3 2355-0 #### [facility] CLIA [id number] [address] aPTT Coag (PPP) [Time] 125.1 s High 23.0-32.4 [facility] Comment on above: Order Comment: Speci men Type: BLOOD SPECIMEN [facility] Address: [address] [place] [address] Performed By: #### T SCR #### [facility] CLIA [id number] [address] aPTT Coag (PPP) [Time] s High 23.0-32.4 [facility] Comment on above: Order Comment: Speci men Type: BLOOD SPECIMENOrdering Facility: [facility] Address: [address] [place] [address] Performed By: #### 3 2355-0 #### [facility] CLIA [id number] [address] aPTT Coag (PPP) [Time] 28.5 s Normal 23.0-32.4 [facility] Comment on above: Order Comment: Speci men Type: BLOOD SPECIMENOrdering Facility: [facility] Address: [address] [place] [address] Performed By: #### 1 4979-9 ####[facility] LABORATORYCLIA [id number] [address] ANES PRE-OPon 06-16-2022 ANES PRE-OP HNO ID: [id number] Author: Olu Winn MD Service: Anesthesiology Author [...] as of this encounter: 162.6 cm (5' 4). Weight as of this encounter: 72.6 kg [...] and consent discussed: yes. Patient / Responsible Republican agrees to proceed: yes Patient / Surrogate [...] June 16, 2022 TIME: 3:44 PM CSN: [id number] [facility] BRIEF OP NOTon 06-16-2022 BRIEF OP NOT HNO ID: [id number] Author: Emanuel Hull MD Service: General Surgery [...] BRIEF OPERATIVE / PROCEDURE NOTE LOG ID: [id number] Surgery/Procedure Date: 06/16/2022 Incision/Procedure Start Time: 5:01 PM Incision Close/Procedure End Time: 6:58 PM Surgeon(s)/Proceduralis t(s) and Photocopier Technician(s): Surgeon(s) and Role: * Frida Rodriguez [...] and on weekends, please page surgery on-call [phone] (RNF) or [phone] (ICU) SIGNATURE: Emanuel Hull MD PATIENT NAME: Mel Castillo DATE: June 16, 2022 TIME: 7:19 PM PAGER/CONTACT #: [phone] Normal [facility] CBC W Auto Differential pane l (Bld)on 06-16-2022 Anisocytosis Ql (Bld) Present Normal [facility] Comment on above: Order Comment: Speci men Type: BLOOD SPECIMENOrdering Facility: [facility] Address: [address] [place] [address] Performed By: #### 5 7021-8 ####[facility] LABORATORYCLIA [id number] [place] [address] [place] Basophils (Bld) [#/Vol] 0.00 10*3/uL Normal <0.11 [facility] Comment on above: Order Comment: Speci men Type: BLOOD SPECIMENOrdering Facility: [facility] Address: [address] [address] Performed By: #### 5 7021-8 ####[facility] LABORATORYCLIA [id number] [place] [address] [place] Basophils/100 WBC (Bld) 0.0 % Normal A [facility] Comment on above: Order Comment: Speci men Type: BLOOD SPECIMENOrdering Facility: [facility] Address: [address] [place] [address] Performed By: #### 5 7021-8 ####[facility] LABORATORYCLIA [id number] [address] OF [facility] Differential cell count method Nom (Bld) Manual Normal [facility] Comment on above: Order Comment: Speci men Type: BLOOD SPECIMENOrdering Facility: [facility] Address: [address] [place] [address] Performed By: #### 5 7021-8 ####[facility] LABORATORYCLIA [id number] [address] [place] Eosinophils (Bld) [#/Vol] 0.00 10*3/uL Normal <0.46 [facility] Comment on above: Order Comment: Speci men Type: BLOOD SPECIMENOrdering Facility: [facility] Address: [address] [place] [address] Performed By: #### 5 7021-8 ####[facility] LABORATORYCLIA [id number] [address] Eosinophils/100 WBC (Bld) 0.0 % Normal [facility] Comment on above: Order Comment: Speci men Type: BLOOD SPECIMENOrdering Facility: [facility] Address: [address] [place] [address] Performed By: #### 5 7021-8 ####[facility] LABORATORYCLIA [id number] [address] [place] Erythrocyte distribution width (RBC) [Ratio] 15.6 % High 11.5-15.0 [facility] Comment on above: Order Comment: Speci men Type: BLOOD SPECIMENOrdering Facility: [facility] Address: [address] [place] [address] Performed By: #### 5 7021-8 ####[facility]ORATORYCLIA [id number] [address] [place] Hematocrit (Bld) [Volume fraction] 35.3 % Low 36.0-46.0 [facility] Comment on above: Order Comment: Speci men Type: BLOOD SPECIMENOrdering Facility: [facility] Address: [address] [place] [address] Performed By: #### 5 7021-8 ####[facility] LABORATORYCLIA [id number] [place] [address] [place] Hemoglobin (Bld) [Mass/Vol] 11.4 g/dL Low 11.5-15.5 [facility] Comment on above: Order Comment: Speci men Type: BLOOD SPECIMENOrdering Facility: [facility] Address: [address] [place] [address] Performed By: #### 5 7021-8 ####[facility] LABORATORYCLIA [id number] [address] [place] Lymphocytes (Bld) [#/Vol] 1.27 10*3/uL Normal 1.00-4.00 [facility] Comment on above: Order Comment: Speci men Type: BLOOD SPECIMENOrdering Facility: [facility] Address: [address] [place] [address] Performed By: #### 5 7021-8 ####[facility] LABORATORYCLIA [id number] [address] [place] Lymphocytes/100 WBC (Bld) 8.0 % Normal [facility] Comment on above: Order Comment: Speci men Type: BLOOD SPECIMENOrdering Facility: [facility] Address: [address] [place] [address] Performed By: #### 5 7021-8 ####[facility] LABORATORYCLIA [id number] [address] [place] MCH (RBC) [Entitic mass] 30.2 pg Normal 26.0-34.0 [facility] Comment on above: Order Comment: Speci men Type: BLOOD SPECIMENOrdering Facility: [facility] Address: [address] [place] [address] Performed By: #### 5 7021-8 ####[facility] LABORATORYCLIA [id number] [address] [place] MCHC (RBC) [Mass/Vol] 32.3 g/dL Normal 30.5-36.0 [facility] Comment on above: Order Comment: Speci men Type: BLOOD SPECIMENOrdering Facility: [facility] Address: [address] [place] [address] Performed By: #### 5 7021-8 ####[facility] LABORATORYCLIA [id number] [address] [place] MCV (RBC) [Entitic vol] 93.6 fL Normal 80.0-100.0 [facility] Comment on above: Order Comment: Speci men Type: BLOOD SPECIMENOrdering Facility: [facility] Address: [address] [place] [address] Performed By: #### 5 7021-8 ####[facility] LABORATORYCLIA [id number] [address] STATES OF [facility] Monocytes (Bld) [#/Vol] 1.74 10*3/uL High <0.87 [facility] Comment on above: Order Comment: Speci men Type: BLOOD SPECIMENOrdering Facility: [facility] Address: [address] [place] [address] Performed By: #### 5 7021-8 ####[facility] LABORATORYCLIA [id number] [address] Monocytes/100 WBC (Bld) 11.0 % Normal A [facility] Comment on above: Order Comment: Speci men Type: BLOOD SPECIMENOrdering Facility: [facility] Address: [address] [place] [address] Performed By: #### 5 7021-8 ####[facility] LABORATORYCLIA [id number] [address] [place] MYELO% 4.0 % Normal [facility] Comment on above: Order Comment: Speci men Type: BLOOD SPECIMENOrdering Facility: [facility] Address: [address] [address] Performed By: #### 5 7021-8 ####[facility] LABORATORYCLIA [id number] [address] [place] Neutrophils (Bld) [#/Vol] 12.02 10*3/uL High 1.45-7.50 [facility] Comment on above: Order Comment: Speci men Type: BLOOD SPECIMENOrdering Facility: [facility] Address: [address] [place] [address] Performed By: #### 5 7021-8 ####[facility] LABORATORYCLIA [id number] [address] Neutrophils/100 WBC (Bld) 76.0 % Normal [facility] Comment on above: Order Comment: Speci men Type: BLOOD SPECIMENOrdering Facility: [facility] Address: [address] [place] [address] Performed By: #### 5 7021-8 ####[facility]ORATORYCLIA [id number] [address] [place] Nucleated RBC (Bld) [#/Vol] 10*3/uL Normal <0.01 [facility] Comment on above: Order Comment: Speci men Type: BLOOD SPECIMENOrdering Facility: [facility] Address: [address] [place] [address] Performed By: #### 5 7021-8 ####[facility] LABORATORYCLIA [id number] [address] Nucleated RBC/100 WBC (Bld) [Ratio] 0.0 /100 WBC Normal [facility] Comment on above: Order Comment: Speci men Type: BLOOD SPECIMENOrdering Facility: [facility] Address: [address] [place] [address] Performed By: #### 5 7021-8 ####[facility] LABORATORYCLIA [id number] [address] [place] Platelet mean volume (Bld) [Entitic vol] 9.7 fL Normal 9.0-12.7 [facility] Comment on above: Order Comment: Speci men Type: BLOOD SPECIMENOrdering Facility: [facility] Address: [address] [address] Performed By: #### 5 7021-8 ####[facility] LABORATORYCLIA [id number] [address] [place] Platelets (Bld) [#/Vol] 373 10*3/uL Normal 150-400 [facility] Comment on above: Order Comment: Speci men Type: BLOOD SPECIMENOrdering Facility: [facility] Address: [address] [address] Performed By: #### 5 7021-8 ####[facility] LABORATORYCLIA [id number] [address] Platelets Estimate (Bld) [#/Vol] Adequate Normal [facility] Comment on above: Order Comment: Speci men Type: BLOOD SPECIMENOrdering Facility: [facility] Address: [address] [place] [address] Performed By: #### 5 7021-8 ####[facility] LABORATORYCLIA [id number] [address] PROMYL% 1.0 % Normal [facility] Comment on above: Order Comment: Speci men Type: BLOOD SPECIMENOrdering Facility: [facility] Address: [address] [address] Performed By: #### 5 7021-8 ####[facility] LABORATORYCLIA [id number] [address] [place] RBC (Bld) [#/Vol] 3.77 10*6/uL Low 3.90-5.20 [facility] Comment on above: Order Comment: Speci men Type: BLOOD SPECIMENOrdering Facility: [facility] Address: [address] [place] [address] Performed By: #### 5 7021-8 ####[facility]ORATORYCLIA [id number] [address] RED CELL MORPH Normal Normal [facility] Comment on above: Order Comment: Speci men Type: BLOOD SPECIMENOrdering Facility: [facility] Address: [address] [place] [address] Performed By: #### 5 7021-8 ####[facility] LABORATORYCLIA [id number] [address] SPHEROCYTES Few Normal [facility] Comment on above: Order Comment: Speci men Type: BLOOD SPECIMENOrdering Facility: [facility] Address: [address] [address] Performed By: #### 5 7021-8 ####[facility] LABORATORYCLIA [id number] [address] WBC (Bld) [#/Vol] 15.82 10*3/uL High 3.70-11.00 [facility] Comment on above: Order Comment: Speci men Type: BLOOD SPECIMENOrdering Facility: [facility] Address: [address] [place] [address] Result Comment: Resu lts checked and verified. Performed By: #### 5 7021-8 ####[facility] LABORATORYCLIA [id number] [address] CBC panel Auto (Bld)on 06-16 Erythrocyte distribution width (RBC) [Ratio] 15.5 % High 11.5-15.0 [facility] Comment on above: Order Comment: Speci men Type: BLOOD SPECIMENOrdering Facility: [facility] Address: [address] [place] [address] Performed By: #### 5 8410-2 ####[facility] LABORATORYCLIA [id number] [address] Hematocrit (Bld) [Volume fraction] 30.1 % Low 36.0-46.0 [facility] Comment on above: Order Comment: Speci men Type: BLOOD SPECIMENOrdering Facility: [facility] Address: [address] [place] [address] Performed By: #### 5 8410-2 ####[facility] LABORATORYCLIA [id number] [address] Hemoglobin (Bld) [Mass/Vol] 9.8 g/dL Low 11.5-15.5 [facility] Comment on above: Order Comment: Speci men Type: BLOOD SPECIMENOrdering Facility: [facility] Address: [address] [place] [address] Performed By: #### 5 8410-2 ####[facility] LABORATORYCLIA [id number] [address] MCH (RBC) [Entitic mass] 30.8 pg Normal 26.0-34.0 [facility] Comment on above: Order Comment: Speci men Type: BLOOD SPECIMENOrdering Facility: [facility] Address: [address] [place] [address] Performed By: #### 5 8410-2 ####[facility] LABORATORYCLIA [id number] [address] MCHC (RBC) [Mass/Vol] 32.6 g/dL Normal 30.5-36.0 [facility] Comment on above: Order Comment: Speci men Type: BLOOD SPECIMENOrdering Facility: [facility] Address: [address] [place] [address] Performed By: #### 5 8410-2 ####[facility] LABORATORYCLIA [id number] [address] MCV (RBC) [Entitic vol] 94.7 fL Normal 80.0-100.0 [facility] Comment on above: Order Comment: Speci men Type: BLOOD SPECIMENOrdering Facility: [facility] Address: [address] [place] [address] Performed By: #### 5 8410-2 ####[facility] LABORATORYCLIA [id number] [address] Nucleated RBC (Bld) [#/Vol] 0.08 10*3/uL High <0.01 [facility] Comment on above: Order Comment: Speci men Type: BLOOD SPECIMENOrdering Facility: [facility] Address: [address] [place] [address] Performed By: #### 5 8410-2 ####[facility] LABORATORYCLIA [id number] [address] [place] Platelet mean volume (Bld) [Entitic vol] 9.6 fL Normal 9.0-12.7 [facility] Comment on above: Order Comment: Speci men Type: BLOOD SPECIMENOrdering Facility: [facility] Address: [address] [address] Performed By: #### 5 8410-2 ####[facility] LABORATORYCLIA [id number] [address] [place] Platelets (Bld) [#/Vol] 277 10*3/uL Normal 150-400 [facility] Comment on above: Order Comment: Speci men Type: BLOOD SPECIMENOrdering Facility: [facility] Address: [address] [address] Performed By: #### 5 8410-2 ####[facility] LABORATORYCLIA [id number] [place] [address] [place] RBC (Bld) [#/Vol] 3.18 10*6/uL Low 3.90-5.20 [facility] Comment on above: Order Comment: Speci men Type: BLOOD SPECIMENOrdering Facility: [facility] Address: [address] [address] Performed By: #### 5 8410-2 ####[facility] LABORATORYCLIA [id number] [place] [address] [place] WBC (Bld) [#/Vol] 10.43 10*3/uL Normal 3.70-11.00 [facility] Comment on above: Order Comment: Speci men Type: BLOOD SPECIMENOrdering Facility: [facility] Address: [address] [place] [address] Performed By: #### 5 8410-2 ####[facility] LABORATORYCLIA [id number] [address] STATES OF [facility] CONSULTon 06-16-2022 CONSULT HNO ID: [id number] Author: Iman Saldana DO Service: General Surgery [...] CBC, Coags, BMP, Mg, Phos Recent Labs 11/3034006/16/22 0304 WBC 15.82* -- HB 11.4* -- [...] or co (more content not included)... Normal [facility] CTA ABD/PEL/LOWER EXT W IVCO Non 06-16-2022 CTA ABD/PEL/LOWER EXT W IVCON * * *Final Report* * * DATE OF EXAM: Jun 16 2022 7:33AM [facility] 0122 - CTA ABD/PEL/LOWER EXT W [...] lobe consolidation may represent pneumonia or atelectasis. 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 Transcribe Date/Time: Jun 16 2022 7:54A Dictated by : ESTHER MCKEON MD This examination was interpreted and the report reviewed and electronically signed by: ESTHER MCKEON MD on Jun 16 2022 8:22AM EST [id number] Normal [facility] Comprehensive metabolic 2000 panelon 06-16-2022 Albumin [Mass/Vol] 3.2 g/dL Low 3.9-4.9 [facility] Comment on above: Order Comment: Speci men Type: BLOOD SPECIMENOrdering Facility: [facility] Address: [address] [place] [address] Performed By: #### 3 3959-8, 28101-8, 06806-1, 47194-9 ####[facility] LABORATORYCLIA [id number] [address] STATES OF [facility] ALP [Catalytic activity/Vol] 111 U/L Normal 34-123 [facility] Comment on above: Order Comment: Speci men Type: BLOOD SPECIMENOrdering Facility: [facility] Address: [address] [place] [address] Performed By: #### 3 3959-8, 28042-8, 96186-2, 72251-2 ####[facility] LABORATORYCLIA [id number] [address] STATES OF [facility] ALT With P-5'-P [Catalytic activity/Vol] 20 U/L Normal 7-38 [facility] Comment on above: Order Comment: Speci men Type: BLOOD SPECIMENOrdering Facility: [facility] Address: [address] [place] [address] Performed By: #### 3 3959-8, 63177-4, 29657-6, 04203-3 ####[facility] LABORATORYCLIA [id number] [address] STATES [facility] Anion gap [Moles/Vol] 17 mmol/L Normal 9-18 [facility] Comment on above: Order Comment: Speci men Type: BLOOD SPECIMENOrdering Facility: [facility] Address: [address] [place] [address] Performed By: #### 3 3959-8, 89952-8, 16792-4, 44322-6 ####[facility] LABORATORYCLIA [id number] [address] [place] AST With P-5'-P [Catalytic activity/Vol] 13 U/L Normal 13-35 [facility] Comment on above: Order Comment: Speci men Type: BLOOD SPECIMENOrdering Facility: [facility] Address: [address] [address] Performed By: #### 3 3959-8, 62862-1, 25186-2, 32787-6 ####[facility] LABORATORYCLIA [id number] [place] [address] [place] Bilirubin [Mass/Vol] 0.3 mg/dL Normal 0.2-1.3 [facility] Comment on above: Order Comment: Speci men Type: BLOOD SPECIMENOrdering Facility: [facility] Address: [address] [place] [address] Performed By: #### 3 3959-8, 20955-4, , 26844-6 ####[facility] LABORATORYCLIA [id number] [place] [address] [place] Calcium [Mass/Vol] 9.1 mg/dL Normal 8.5-10.2 [facility] Comment on above: Order Comment: Speci men Type: BLOOD SPECIMENOrdering Facility: [facility] Address: [address] [place] [address] Performed By: #### 3 3959-8, 14130-1, 39562-8, 23021-0 ####[facility] LABORATORYCLIA [id number] [place] [address] [place] Chloride [Moles/Vol] 104 mmol/L Normal 97-105 [facility] Comment on above: Order Comment: Speci men Type: BLOOD SPECIMENOrdering Facility: [facility] Address: [address] [address] Performed By: #### 3 3959-8, 48584-4, 45318-5, 19133-4 ####[facility] LABORATORYCLIA [id number] [place] [address] [place] CO2 [Moles/Vol] 18 mmol/L Low 22-30 [facility] Comment on above: Order Comment: Speci men Type: BLOOD SPECIMENOrdering Facility: [facility] Address: [address] [address] Performed By: #### 3 3959-8, 09260-9, 69428-1, 11728-9 ####[facility]CL[facility] [id number] [address] [place] Creatinine [Mass/Vol] 1.14 mg/dL High 0.58-0.96 [facility] Comment on above: Order Comment: Speci men Type: BLOOD SPECIMENOrdering Facility: [facility] Address: [address] [address] Performed By: #### 3 3959-8, 38250-6, 79333-0, 69412-8 ####[facility] MOORESVILLEIA [id number] [address] [place] ESTIMATED GLOMERULAR FILTRATION RATE 48 mL/min/1.73m??? Low >=60 [facility] Comment on above: Order Comment: Rhina mason Type: BLOOD SPECIMENOrdering Facility: [facility] Address: [address] [address] Result Comment: Isa mated Glomerular Filtration Rate [...] actual GFR. Performed By: #### 3 3959-8, 37268-4, 88003-5, 11457-6 ####[facility] LABORATORYIA [id number] [address] [place] Glucose [Mass/Vol] 122 mg/dL High 74-99 [facility] Comment on above: Order Comment: Speci men Type: BLOOD SPECIMENOrdering Facility: [facility] Address: [address] [address] Result Comment: The [place] [employer] (ADA) provides guidance for cutoff [...] Standards of Medical Care in Diabetes 2016, [place] [employer]. Diabetes Care. 2016.39(Suppl 1). Performed By: #### 3 3959-8, 30491-5, 05720-2, 66075-0 ####[facility] LABORATORYCLIA [id number] [place] [address] [place] Potassium [Moles/Vol] 4.4 mmol/L Normal 3.7-5.1 [facility] Comment on above: Order Comment: Speci [facility] Type: BLOOD SPECIMENOrdering Facility: [facility] Address: [address] [place] [address] Performed By: #### 3 3959-8, 48439-1, 27763-5, 22231-8 ####[facility]ITALCLIA [id number] [place] [address] [place] Protein [Mass/Vol] 6.6 g/dL Normal 6.3-8.0 [facility] Comment on above: Order Comment: Speci [facility] Type: BLOOD SPECIMENOrdering Facility: [facility] Address: [address] [place] [address] Performed By: #### 3 3959-8, 05963-9, 36985-7, 15470-2 ####[facility] LABORATORYCLIA [id number] [place] [address] [place] Sodium [Moles/Vol] 139 mmol/L Normal 136-144 [facility] Comment on above: Order Comment: Speci men Type: BLOOD SPECIMENOrdering Facility: [facility] Address: [address] [place] [address] Performed By: #### 3 3959-8, 20280-7, 77987-7, 03027-2 ####[facility] LABORATORYCLIA [id number] [place] [address] [place] Urea nitrogen [Mass/Vol] 35 mg/dL High 7-21 [facility] Comment on above: Order Comment: Speci men Type: BLOOD SPECIMENOrdering Facility: [facility] Address: [address] [place], [place] [address] Performed By: #### 3 3959-8, 24142-8, 76699-5, 43344-4 ####[facility] LABORATORYCLIA [id number] [place] [address] [facility] ED NOTEon 06-16-2022 ED NOTE HNO ID: [id number] Author: Adela Cortez RN Service: Emergency Medicine Author Type: Registered Nurse Type: ED Notes Filed: 06/16/2022 11:27 AM Note Text: Pts aptt is >139. Nongram states to hold dose and let MD know. Vascular resident made aware, MD ordered to hold dose x1 hour and then redraw aptt. Normal [facility] ED NOTE HNO ID: [id number] Author: Nancy Scott RN Service: Emergency Medicine Author Type: Registered Nurse Type: ED Notes Filed: 06/16/2022 7:13 AM Note Text: CT notified that pt has been moved to new room and is ready for testing [facility] ED NOTE HNO ID: [id number] Author: Marleen Blank RN Service: ? Author Type: Registered Nurse Type: ED Notes Filed: 06/16/2022 6:59 AM Note Text: Bed: 19-ED Expected date: Expected time: Means of arrival: Comments: Normal [facility] ED NOTE HNO ID: [id number] Author: Nancy Scott RN Service: Emergency Medicine Author Type: Registered Nurse Type: ED Notes Filed: 06/16/2022 6:44 AM Note Text: CT delayed due to pt needing to move rooms because of bed bugs. Normal [facility] ED NOTE HNO ID: [id number] Author: Nancy Scott RN Service: Emergency Medicine Author Type: Registered Nurse Type: ED Notes Filed: 06/16/2022 3:09 AM Note Text: CT form faxed, ptt sent Normal [facility] ED NOTE HNO ID: [id number] Author: Nancy Scott RN Service: Emergency Medicine Author Type: Registered Nurse Type: ED Notes Filed: 06/16/2022 3:02 AM Note Text: US notified Normal [facility] ED NOTE HNO ID: [id number] Author: Nancy Scott RN Service: Emergency Medicine Author Type: Registered Nurse Type: ED Notes Filed: 06/16/2022 2:48 AM Note Text: CT notified [facility] ED NOTE HNO ID: [id number] Author: Nancy Scott RN Service: Emergency Medicine Author Type: Registered Nurse Type: ED Notes Filed: 06/16/2022 2:43 AM Note Text: Labs sent Normal [facility] ED NOTE HNO ID: [id number] Author: Davian Chen RN Service: ? Author Type: Registered Nurse Type: ED Notes Filed: 06/16/2022 2:06 AM Note Text: Bed: 15-ED Expected date: Expected time: Means of arrival: Comments: squad [facility] ED PROV NOTEon 06-16-2022 ED PROV NOTE HNO ID: [id number] Author: Vanessa Trevizo DO Service: Emergency Medicine [...] SpO2 Weight Height 06/16/2221006/16/2221006/16/22 0811 -- 06/16/2221006/16/22 02106/16/22210 -- 91/65 (!) 130 36.5 ?C (97.7 [...] Abnormal; Notable (more content not included)... Normal [facility] ED PROV NOTE HNO ID: [id number] Author: Vanessa Trevizo DO Service: Emergency Medicine [...] diagnosis. Vanessa Trevizo DO 06/16/22 0323 Normal [facility] EKGon 06-16-2022 Electrocardiogram Ventricular Rate : 1 13 BPM Atrial Rate : 122 BPM QRS Duration : 100 ms Q-T Interval : 282 ms QTC Calculation(Bazett) : 386 ms Calculated R [place] : 46 degrees Calculated T [place] : -40 degrees ATRIAL FIBRILLATION WITH RAPID VENTRICULAR RESPONSE ABNORMAL QRS-T ANGLE, CONSIDER PRIMARY T WAVE ABNORMALITY ABNORMAL ECG NO PREVIOUS ECGS AVAILABLE Confirmed by MD LEONE CAROL ([id number]) on 06/16/2022 6:43:12 PM NAME : MEL GUADARRAMA PID : [id number] : 1940 Gender : Female Race : ORD : Procedure Date : Jun 16 2022 07:37:07 Edit Date : Jun 16 2022 18:43:17 Diagnosis: ATRIAL FIBRILLATION WITH RAPID VENTRICULAR RESPONSE ABNORMAL QRS-T ANGLE, CONSIDER PRIMARY T WAVE ABNORMALITY ABNORMAL ECG NO PREVIOUS ECGS AVAILABLE Confirmed by MD LEONE CAROL ([id number]) on 06/16/2022 6:43:12 PM Test Reason : Location : 4 : AKED 19 Overread By : MD LEONE CAROL Edited By : MD LEONE CAROL Referred By : , Acquired by : PATRICIA MOE Normal [facility] HIGH SENSITIVITY TROPONIN T (INITIAL)on 06-16-2022 HIGH SENSITIVITY CHRISTOPHER 34 ng/L High <12 [facility] Comment on above: Order Comment: Rhina mason Type: BLOOD SPECIMENOrdering Facility: [facility] Address: [address] [place] [address] Result Comment: When assessing risk for acute [...] MACE. Performed By: #### 3 2355-0 #### [facility] CLIA [id number] [address] [place] HIGH SENSITIVITY TROPONIN T (SECOND)on 06-16-2022 HIGH SENSITIVITY CHRISTOPHER 28 ng/L High <12 [facility] Comment on above: Order Comment: Rhina mason Type: BLOOD SPECIMENOrdering Facility: [facility] Address: [address] [place] [address] Result Comment: When assessing risk for acute [...] 30 day MACE. Performed By: #### L [id number] ####[facility] LABORATORYCLIA [id number] [place] [address] [place] HIGH SENSITIVITY TROPONIN T (THIRD) 3 HRS AFTER INITIALon 06-16-2022 HIGH SENSITIVITY CHRISTOPHER 23 ng/L High <12 [facility] Comment on above: Order Comment: Rhina mason Type: BLOOD SPECIMENOrdering Facility: [facility] Address: [address] [place] [address] Result Comment: When assessing risk for acute [...] 30 day MACE. Performed By: #### L [id number] ####[facility] LABORATORYCLIA [id number] [place] [address] [place] HISTORY PHYSICALon HISTORY PHYSICAL HNO ID: [id number] Author: Kristen Jones APRN.CNP Service: Hospital Medicine Author Type: Nurse Practitioner Type: HANDP Filed: 06/16/2022 1:27 PM Note Text: DEPARTMENT OF HOSPITAL MEDICINE HISTORY AND PHYSICAL EXAM SERVICE DATE: 06/16/2022 SERVICE TIME: 12:02 PM Primary Care Physician: Dr. Evans Admitting Provider: Kristen Jones APRN.CNP NIGHT AND WEEKEND COVERAGE: After 7pm, please call cross cover pager #[phone] Subjective CHIEF COMPLAINT: Left leg pain, discoloration [...] this patient has 2 charts. Mel Garcia [id number] and Mel Castillo [id number]. 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 Objective PHYSICAL EXAM: BP 116/60 Pulse 103 Temp 97.7 Resp 13 Ht 5' 4 (1.63m) Wt 160 lb (72.6kg) SpO2 98% [...] or rh (more content not included)... Normal [facility] Magnesium [Mass/Vol] 2.4 mg/dL High 1.7-2.3 [facility] Comment on above: Order Comment: Speci men Type: BLOOD SPECIMENOrdering Facility: [facility] Address: [address] [place] [address] Performed By: #### 3 3959-8, 32017-6, 21565-7, 15545-2 ####[facility] LABORATORYCLIA [id number] [address] [place] NT-proBNP [facility] Natriuretic peptide.B prohormone N-Terminal [Mass/Vol] 4156 pg/mL High <450 [facility] Comment on above: Order Comment: Speci men Type: BLOOD SPECIMEN [facility]ing [facility] Address: [address] [place] [address] Performed By: #### T SCR #### [facility] BLOOD BANK CLIA [id number] [address] [place] [address] [place] NURSING PROGon 06-16-2022 NURSING PROG HNO ID: [id number] Author: Kayden José RN Service: Trauma Author [...] TO THE RECEIVING NURSE. NIKKY FRAGA. Normal [facility] PT panel Coag (PPP)on 2021 INR Coag (PPP) [Relative time] 1.1 {INR} Normal 0.9-1.3 [facility] Comment on above: Order Comment: Rhina mason Type: BLOOD SPECIMENOrdering Facility: [facility] Address: [address] [place], [place] [address] Result Comment: Mayra min K Antagonist (VKA) Therapeutic Range: INR 2 to 3 (Target INR of 2.5) Note: For patients treated with VKA drugs, such as warfarin, the [place] [employer] 2012 Guideline recommends [...] Chest 2012, 141:7S-47S Daren RA, et al. [facility] 2017, 70: 252-289 Performed By: #### 3 4528-0, 22716-4 ####[facility] LABORATORYCLIA [id number] [place] [address] [place] [facility] PT Coag (PPP) [Time] 11.3 s Normal 9.7-13.0 [facility] Comment on above: Order Comment: Rhina mason Type: BLOOD SPECIMENOrdering Facility: [facility] Address: [address] [id number] Performed By: #### 3 4528-0, 88332-8 ####[facility] LABORATORYCLIA [id number] [address] [place] Procalcitonin SerPl-mCncon 1 08-16-2021 Procalcitonin [Mass/Vol] 0.19 ng/mL High <0.09 [facility] Comment on above: Order Comment: Speci men Type: BLOOD SPECIMEN Ordering Facility: [facility] Address: [place] [address] Result Comment: For a guided interpretation of test results, please visit the Change in Procalcitonin Calculator, [email or web address]. Performed By: #### T SCR #### [facility] CLIA [id number] SARS-CoV-2 RNA Resp Ql OXANA+p robeon 06-16-2022 SARS-CoV-2 (COVID-19) RNA OXANA+probe Ql (Resp) COVID 19 RESULT: SARS-CoV-2 (Agent of COVID-19) Detected by RT-PCR or equivalent method. This test has been authorized by FDA under an Emergency Use Authorization (EUA). Normal [facility] Comment on above: Performed By: #### 9 4500-6 #### [facility] CLIA [id number] [address] [place] [address] OF [facility] US DVT LOWER LTon 06-16-2022 US DVT [...] Torres MD on 0516 via verbal communication. Womens Volleyball Coach: DEVEN Transcribe Date/Time: Jun 16 2022 5:07A Dictated by : SKIP NOEL MD This examination was interpreted and the report reviewed and electronically signed by: SKIP NOEL MD on Jun 16 2022 5:17AM EST [id number] Normal [facility] aPTT PPPon 06-16-2022 aPTT Coag (PPP) [Time] 74.2 s High 23.0-32.4 [facility] Comment on above: Order Comment: Rhina mason Type: BLOOD SPECIMENOrdering Facility: [facility] Address: [address] [place] [address] Performed By: #### 1 4979-9 ####[facility] LABORATORYCLIA [id number] [address] STATES OF [facility] aPTT Coag (PPP) [Time] 134.7 s High 23.0-32.4 [facility] Comment on above: Order Comment: Rhina mason Type: BLOOD SPECIMENOrdering Facility: [facility] Address: [address] [place] [address] Performed By: #### 1 4979-9 ####[facility] LABORATORYCLIA [id number] [address] aPTT Coag (PPP) [Time] s High 23.0-32.4 [facility] Comment on above: Order Comment: Specrobson isabella Type: BLOOD SPECIMENOrdering Facility: [facility] Address: [address] [address] Performed By: #### 1 4979-9 ####[id number] [address] aPTT Coag (PPP) [Time] 21.7 s Low 23.0-32.4 [facility] Comment on above: Order Comment: Rhina isabella Type: BLOOD SPECIMENOrdering Facility: [facility] Address: [address] [address] Performed By: #### 3 4528-0, 67883-0 ####[facility] [id number] [address] CULTURE AND STAIN - TISSUEon 03-10-2020 [...] 0.12 S Rifampin(AGATA) <= 0.5 S Normal [facility] Comment on above: Performed By: #### C XTIS #### [address] [place] [address] [address] [place], [place] [id number] #### C/DAMIÁN #### [address] [address] [address] [place], [place] CR Finger(s) Min 2 Views Rig hton 03-07-2020 CR Finger(s) Min 2 Views Right Patient Name: MEL POP Diagnostic Radiology Exam Date/Time 03/06/2020 10:30:00 EDT Exam CR Finger(s) Min 2 Views Right Ordering Physician MD GUSTAVO, JAYLA Stoll Accession Number [id number] CPT4 Codes 63471 () Reason For Exam pain Report Right [...] was communicated to JAYLA MCMAHAN via the XYZE Critical Result system on 03/07/2020 8:07 PM EDT, Message ID [id number]. Report Dictated on Final Dictating Physician: MD PERRY DIANE Signed Date and Time: 03/07/2020 8:07 pm Signed by: MD PERRY DIANE Transcribed Date and Time: 03/07/2020 8:08 Normal [facility] CULTURE ANAEROBEon 0 CULTURE ANAEROBE CULTURE ANAEROBE --> Status: F No growth of anaerobes at 5 days. STAIN GRAM --> Status: F Few polymorphonuclear cells/lpf. No organisms seen. No organisms seen. Normal [facility] Comment on above: Performed By: #### C XTIS #### [facility] [address] [place] [address] [facility] [address] [place], [place] [id number] #### C/DAMIÁN #### [facility] [address] [place] [address] Vital Signs Date Time Vital Sign Value Performing Clinician Facility 03-15-2025 11:06-0400 Body height 160 cm Andre Berry MD Work Phone: [facility] 03-15-2025 11:06-0400 Body mass index (BMI) [Ratio] 27.1 kg/m2 Andre Berry MD Work Phone: [facility] 03-15-2025 11:06-0400 Body temperature 97.39 [degF] Andre Berry MD Work Phone: [facility] 03-15-2025 11:06-0400 Body weight 69.4 kg Andre Berry MD Work Phone: [facility] Comment on above: unable to stand for ht and wt today 03-15-2025 11:06-0400 Diastolic blood pressure 48 mm[Hg] Andre Berry MD Work Phone: [facility] 03-15-2025 11:06-0400 Heart rate 45 /min Andre Berry MD Work Phone: [facility] 03-15-2025 11:06-0400 SaO2% (BldA) [Mass fraction] 100 % Andre Berry MD Work Phone: [facility] 03-15-2025 11:06-0400 Systolic blood pressure 97 mm[Hg] Andre Berry MD Work Phone: [facility] 12-24-2024 14:45-0400 Body mass index (BMI) [Ratio] 27.1 kg/m2 Kristyn Blankenship MD Work Phone: [facility] [employer] 12-24-2024 14:45-0400 Body weight 69.4 kg Kristyn Blankenship MD Work Phone: [facility] [employer] 12-05-2024 10:20-0400 Body height 160 cm Kristyn Blankenship MD Work Phone: [facility] [employer] 12-05-2024 10:20-0400 Body mass index (BMI) [Ratio] 29.23 kg/m2 Kristyn Blankenship MD Work Phone: [facility] [employer] 12-05-2024 10:20-0400 Body weight 74.84 kg Kristyn Blankenship MD Work Phone: [facility] [employer] 12-05-2024 10:20-0400 Diastolic blood pressure 78 mm[Hg] Kristyn Blankenship MD Work Phone: [facility] [employer] 12-05-2024 10:20-0400 Heart rate 78 /min Kristyn Blankenship MD Work Phone: [facility] [employer] 12-05-2024 10:20-0400 Respiratory rate 18 /min Kristyn Blankenship MD Work Phone: [facility] [employer] 12-05-2024 10:20-0400 SaO2% (BldA) [Mass fraction] 94 % Kristyn Blankenship MD Work Phone: [facility] [employer] 12-05-2024 10:20-0400 Systolic blood pressure 102 mm[Hg] Kristyn Blankenship MD Work Phone: [facility] [employer] 11-22-2024 13:45-0400 Diastolic blood pressure 54 mm[Hg] Kristyn Blankenship MD Work Phone: [facility] [employer] 11-22-2024 13:45-0400 Heart rate 58 /min Kristyn Blankenship MD Work Phone: [facility] [employer] 11-22-2024 13:45-0400 Respiratory rate 18 /min Kristyn Blankenship MD Work Phone: [facility] [employer] 11-22-2024 13:45-0400 SaO2% (BldA) [Mass fraction] 95 % Kristyn Blankenship MD Work Phone: [facility] [employer] 11-22-2024 13:45-0400 Systolic blood pressure 139 mm[Hg] Kristyn Blankenship MD Work Phone: [facility] [employer] 11-22-2024 13:15-0400 Body temperature 97.11 [degF] Kristyn Blankenship MD Work Phone: [facility] [employer] 11-22-2024 08:25-0400 Body height 160 cm Kristyn Blankenship MD Work Phone: [facility] [employer] 11-22-2024 08:25-0400 Body mass index (BMI) [Ratio] 29.23 kg/m2 Kristyn Blankenship MD Work Phone: [facility] [employer] 11-22-2024 08:25-0400 Body weight 74.84 kg Kristyn Blankenship MD Work Phone: [facility] [employer] 11-05-2024 15:42-0400 Body height 160 cm Kristyn Blankenship MD Work Phone: [facility] [employer] 11-05-2024 15:42-0400 Body mass index (BMI) [Ratio] 29.23 kg/m2 Kristyn Blankenship MD Work Phone: [facility] [employer] 11-05-2024 15:42-0400 Body weight 74.84 kg Kristyn Blankenship MD Work Phone: [facility] [employer] 11-05-2024 15:42-0400 Diastolic blood pressure 64 mm[Hg] Kristyn Blankenship MD Work Phone: [facility] [employer] 11-05-2024 15:42-0400 Heart rate 65 /min Kristyn Blankenship MD Work Phone: [facility] [employer] 11-05-2024 15:42-0400 Respiratory rate 18 /min Kristyn Blankenship MD Work Phone: [facility] [employer] 11-05-2024 15:42-0400 SaO2% (BldA) [Mass fraction] 98 % Kristyn Blankenship MD Work Phone: [facility] 11-05-2024 15:42-0400 Systolic blood pressure 122 mm[Hg] Kristyn Blankenship MD Work Phone: [facility] 08-22-2024 10:32-0500 Body height 160 cm Henok Darlyn PA-C Work Phone: [facility] 08-22-2024 10:32-0500 Body mass index (BMI) [Ratio] 29.23 kg/m2 Henok Darlyn PA-C Work Phone: [facility] 08-22-2024 10:32-0500 Body weight 74.84 kg Henok Darlyn PA-C Work Phone: [facility] 08-22-2024 10:32-0500 Diastolic blood pressure 62 mm[Hg] Henok Darlyn PA-C Work Phone: [facility] 08-22-2024 10:32-0500 Respiratory rate 18 /min Henok Darlyn PA-C Work Phone: [facility] 08-22-2024 10:32-0500 Systolic blood pressure 104 mm[Hg] Henok Darlyn PA-C Work Phone: [employer] 08-16-2024 07:19-0500 Body temperature 97.59 [degF] Mariana King DO Work Phone: [facility] 08-16-2024 07:19-0500 Diastolic blood pressure 66 mm[Hg] Mariana King DO Work Phone: [facility] 08-16-2024 07:19-0500 Heart rate 85 /min Mariana King DO Work Phone: [facility] 08-16-2024 07:19-0500 Respiratory rate 18 /min Mariana King DO Work Phone: [facility] 08-16-2024 07:19-0500 SaO2% (BldA) [Mass fraction] 94 % Mariana King DO Work Phone: [facility] 08-16-2024 07:19-0500 Systolic blood pressure 135 mm[Hg] Mariana King DO Work Phone: [facility] 08-03-2024 08:32-0500 Body height 162 cm Mariana King DO Work Phone: [email or web address] 08-03-2024 08:32-0500 Body mass index (BMI) [Ratio] 28.58 kg/m2 Mariana King DO Work Phone: [facility] [employer] 08-03-2024 08:32-0500 Body weight 75 kg Mariana King DO Work Phone: [facility] 07-07-2024 06:03-0500 Body temperature 97.7 [degF] Wm Aracelirakola DO Work Phone: [facility] 07-07-2024 06:03-0500 Diastolic blood pressure 67 mm[Hg] [facility] 07-07-2024 06:03-0500 Heart rate 69 /min Wm Mudrakola DO Work Phone: [facility] 07-07-2024 06:03-0500 Respiratory rate 12 /min Wm Mudrakola DO Work Phone: [facility] 07-07-2024 06:03-0500 SaO2% (BldA) [Mass fraction] 94 % Wm [facility]udrakola DO [facility] 07-07-2024 06:03-0500 Systolic blood pressure 149 mm[Hg] Wm Mudrakola DO Work Phone: [facility] 07-05-2024 10:00-0500 Body height 162.6 cm Wm Aracelirakola DO Work Phone: [facility] 07-05-2024 10:00-0500 Body mass index (BMI) [Ratio] 27.46 kg/m2 Wm Mudrakola DO Work Phone: [facility] 07-05-2024 10:00-0500 Body weight 72.58 kg Wm Nunes DO Work Phone: [facility] [employer] 05-14-2024 15:34-0400 Body height 162.6 cm Jared Evans MD Work Phone: [facility] [employer] 05-14-2024 15:34-0400 Body mass index (BMI) [Ratio] 25.23 kg/m2 Jared Evans MD Work Phone: [facility] [employer] 05-14-2024 15:34-0400 Body weight 66.68 kg Jared Evans MD Work Phone: [facility] [employer] 04-25-2024 13:39-0400 Body height 162.6 cm Henok Mary PA-C Work Phone: [facility] [employer] 04-25-2024 13:39-0400 Body mass index (BMI) [Ratio] 25.23 kg/m2 Henok Hernandez PA-C Work Phone: [facility] [employer] 04-25-2024 13:39-0400 Body weight 66.68 kg Henok Pipernes PA-C Work Phone: [facility] [employer] 04-25-2024 13:39-0400 Diastolic blood pressure 66 mm[Hg] Henok Calloway PA-C Work Phone: [facility] [employer] 04-25-2024 13:39-0400 Heart rate 98 /min Henok Hernandez PA-C Work Phone: [facility] [employer] 04-25-2024 13:39-0400 Respiratory rate 18 /min Henok Pipernes PA-C Work Phone: [facility] [employer] 04-25-2024 13:39-0400 SaO2% (BldA) [Mass fraction] 95 % Henok Calloway PA-C Work Phone: [facility] [employer] 04-25-2024 13:39-0400 Systolic blood pressure 110 mm[Hg] Henok Hernandez PA-C Work Phone: [facility] [employer] 04-13-2024 08:04-0400 Heart rate 92 /min Winifred Cornell DO Work Phone: [facility] 04-13-2024 07:49-0400 Body temperature 97.2 [degF] Winifred Cornell DO Work Phone: [facility] 04-13-2024 07:49-0400 Diastolic blood pressure 89 mm[Hg] Winifred Cornell DO Work Phone: [facility] 04-13-2024 07:49-0400 Respiratory rate 20 /min Winifred Cornell DO Work Phone: [facility] 04-13-2024 07:49-0400 SaO2% (BldA) [Mass fraction] 98 % Winifred Cornell DO Work Phone: [facility] 04-13-2024 07:49-0400 Systolic blood pressure 156 mm[Hg] Winifred Cornell DO Work Phone: [facility] 04-03-2024 17:52-0400 Body height 162.6 cm Winifred Cornell DO Work Phone: [facility] 04-03-2024 17:52-0400 Body mass index (BMI) [Ratio] 27.38 kg/m2 Winifred Cornell DO Work Phone: [facility] 04-03-2024 17:52-0400 Body weight 72.35 kg Winifred Cornell DO Work Phone: [facility] 07-27-2023 14:23-0500 Body height 162.6 cm Ming Weinberg MD Work Phone: [facility] 07-27-2023 14:23-0500 Body mass index (BMI) [Ratio] 27.29 kg/m2 Ming Weinberg MD Work Phone: [facility] 07-27-2023 14:23-0500 Body weight 72.12 kg Ming Weinberg MD Work Phone: [facility] 05-14-2022 15:01-0400 Diastolic blood pressure 84 mm[Hg] Jared Velazquez PA-C Work Phone: [facility] 05-14-2022 15:01-0400 Systolic blood pressure 154 mm[Hg] Jared Velazquez PA-C Work Phone: [facility] 05-14-2022 14:32-0400 Body height 162.6 cm Jared Velazquez PA-C Work Phone: [facility] 05-14-2022 14:32-0400 Body weight 72.58 kg Jared Velazquez PA-C Work Phone: [facility] 05-14-2022 14:32-0400 Heart rate 71 /min Jared Velazquez PA-C Work Phone: [facility] 05-14-2022 14:32-0400 Respiratory rate 16 /min Jared Velazquez PA-C Work Phone: [facility] 05-14-2022 14:32-0400 SaO2% (BldA) [Mass fraction] 98 % Jared Velazquez PA-C Work Phone: [facility] 03-07-2020 09:57-0400 Body Temperature 98.71 [degF] [employer] [facility] [place] 03-07-2020 09:57-0400 BP Diastolic 64 mm[Hg] [facility] [place] 03-07-2020 09:57-0400 BP Systolic 161 mm[Hg] [facility] [place] 03-07-2020 09:57-0400 Pulse (Heart Rate) 77 /min [facility] [place] 03-07-2020 09:57-0400 Pulse Oximetry 96 % [facility] [place] 03-07-2020 08:32-0400 Respiratory Rate 14 /min [facility], [place] 02-08-2020 20:50-0400 Body Temperature 97.5 [degF] [employer] 02-08-2020 20:50-0400 BP Diastolic 81 mm[Hg] [facility] [place] , [place] 02-08-2020 20:50-0400 BP Systolic 193 mm[Hg] Maryuri King [facility] , [place] 02-08-2020 20:50-0400 Pulse (Heart Rate) 68 /min [facility], [place] 02-08-2020 20:50-0400 Pulse Oximetry 97 % [facility] , [place] 02-08-2020 20:50-0400 Respiratory Rate 16 /min [facility], [place] Encounters Encounter Date Encounter Type Care Provider Facility Start: 05-27-2025 ambulatory Megna EVERETT Faci lity:[facility] Start: 05-13-2025 ambulatory Megan EVERETT Faci lity:[facility] Start: 05-09-2025 ambulatory Megan EVERETT Faci lity:[facility] Start: 05-06-2025 ambulatory Megan EVERETT Faci lity:[facility] Start: 04-29-2025 End: 04-29-2025 ambulatory Megan EVERETT Facility:[facility] Start: 04-04-2025 End: 04-04-2025 ambulatory Megan EVERETT Facility:[facility] Start: 04-02-2025 ambulatory Megan Luannevictoriano EVERETT Faci lity:[facility] Start: 03-28-2025 End: 03-28-2025 ambulatory Megan EVERETT Facility:[facility] Start: 03-15-2025 End: 03-15-2025 Office outpatient visit 25 minutes Andre Patel MD Work Phone: [facility] Comment on above: Acute deep vein thro mbosis (DVT) of proximal vein of lower extremity, unspecified laterality (HCC) (Primary Dx) Start: 03-15-2025 End: 03-15-2025 ambulatory MEGAN LUANNEVICTORIANO [facility] Start: 03-04-2025 End: 03-04-2025 ambulatory Megan EVERETT Facility:[facility] Start: 02-25-2025 ambulatory Megan EVERETT Faci lity:[facility] Start: 02-18-2025 ambulatory Megan EVERETT Faci lity:[facility] Start: 02-15-2025 ambulatory Megan EVERETT Faci lity:[facility] Start: 02-11-2025 End: 02-11-2025 ambulatory Megan Luannesaros [facility] Facility:[facility] Start: 02-07-2025 End: 02-07-2025 ambulatory Megan Luannesaros OLS Facility:[facility] Start: 02-04-2025 ambulatory Megan Luannesaros OLS Faci lity:[facility] Start: 01-31-2025 ambulatory Megan Luannesaros [facility]LS Faci lity:[facility] Start: 01-28-2025 ambulatory Megan Luannesaros [facility]LS Faci lity:[facility] Start: 01-25-2025 ambulatory Megan Stroudsaros OLS Faci lity:[facility] Start: 01-22-2025 End: 01-23-2025 ambulatory Megan Luannesaros OLS Facility:[facility] Start: 01-21-2025 End: 01-21-2025 ambulatory Megan Luannesaros OLS Facility:[facility] Start: 01-17-2025 End: 01-17-2025 ambulatory Megan Luannesaros OLS Facility:[facility] Start: 01-16-2025 End: 01-16-2025 ambulatory Megan Luannesaros OLS Facility:[facility] Start: 01-15-2025 End: 01-15-2025 ambulatory Megan Luannesaros OLS Facility:[facility] Start: 01-07-2025 ambulatory Megan Luannesaros OLS Faci lity:[facility] Start: 01-02-2025 End: 01-02-2025 Orders Only [facility] Comment on above: 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) Right retinal detach ment (Primary Dx); Hemorrhagic choroidal detachment of right eye; Pseudophakia, right eye Start: 12-24-2024 End: 12-24-2024 ambulatory MEGAN MONTOYA [facility] Start: 12-24-2024 End: 12-24-2024 Office outpatient visit 15 minutes Kristyn Blankesnhip MD Work Phone: [facility] [place] Comment on above: Aftercare following surgery of the circulatory system (Primary Dx); PAD (peripheral artery disease) ([facility]) Start: 12-13-2024 End: 02-12-2025 Follow-up encounter Shivani Rayo CNP Work Phone: [facility] Surgery - [place] Comment on above: Vascular US lower ex tremity arterial duplex right with MICHELLE Start: 12-13-2024 End: 12-13-2024 ambulatory MEGAN TIDWELLFOZIA [facility] Start: 12-13-2024 End: 12-13-2024 Subsequent hospital visit by physician Krsityn Blankenship MD Work Phone: [facility] Comment on above: Skin ulcer of toe of right foot, limited to breakdown of skin (HCC); PAD (peripheral artery disease) (HCC); Aftercare following surgery of the circulatory system Start: 12-05-2024 End: 12-05-2024 ambulatory [facility] Start: 12-05-2024 End: 12-05-2024 Office outpatient visit 10 minutes Kristyn Blankenship MD Work Phone: [facility] [place] Comment on above: Skin ulcer of toe of right foot, limited to breakdown of skin (HCC) (Primary Dx); PAD (peripheral artery disease) (HCC); Aftercare following surgery of the circulatory system Start: 11-22-2024 End: 11-22-2024 ambulatory [facility] Start: 11-22-2024 End: 11-22-2024 Subsequent hospital visit by physician Kristyn Blankenship MD Work Phone: [facility] Start: 11-15-2024 End: 11-15-2024 ambulatory Megan Montoya [facility] Facility:[facility] Start: 11-09-2024 End: 11-13-2024 ambulatory Henok Lantigua PA-C Work Phone: [facility] [place] Comment on above: 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); Right retinal detachment; Postoperative eye state; Pseudophakia, right eye; Subluxation of right lens Start: 10-01-2024 End: 10-01-2024 ambulatory SAVANA LOPEZ Facility:[facility] Start: 09-17-2024 End: 09-17-2024 ambulatory Megan EVERETT [facility] Work Phone: Start: 09-17-2024 End: 09-17-2024 Departed Referred Megan BISWAS Start: 09-17-2024 Registered Referred Megan BISWAS Start: 09-17-2024 End: 09-17-2024 ambulatory Megan EVERETT Facility:[facility] Start: 09-10-2024 End: 09-10-2024 ambulatory Megan EVERETT [facility] Work Phone: Start: 09-10-2024 End: 09-10-2024 Departed Referred Megan BISWAS Start: 09-10-2024 Registered Referred Megan BISWAS Start: 09-10-2024 End: 09-10-2024 ambulatory Megan EVERETT Facility:[facility] Start: 09-05-2024 End: 09-05-2024 ambulatory SAVANA LOPEZ Facility:[facility] Start: 09-05-2024 End: 09-05-2024 Patient encounter procedure Savana Lopez MD Work Phone: Ophthalmology Comment on above: Postoperative eye st ate; Hemorrhagic choroidal detachment of right eye; Pseudophakia, right eye; Subluxation of right lens Start: 09-03-2024 End: 09-03-2024 ambulatory Megan EVERETT [facility] Work Phone: Start: 09-03-2024 End: 09-03-2024 Departed Referred Megan BISWAS Start: 09-03-2024 Registered Referred Megan BISWAS Start: 09-03-2024 End: 09-03-2024 ambulatory Megan EVERETT Facility:[facility] Start: 08-22-2024 End: 08-22-2024 ambulatory [facility] Start: 08-22-2024 End: 08-22-2024 Office outpatient visit 15 minutes Henok Lantigua PA-C Work Phone: [facility] [place] Comment on above: Acute deep vein thro mbosis (DVT) of iliac vein of right lower extremity (HCC) (Primary Dx); PAD (peripheral artery disease) (HCC) Start: 08-20-2024 End: 08-20-2024 ambulatory Megan Luannevictoriano EVERETT [facility] Work Phone: Start: 08-20-2024 End: 08-20-2024 Departed Referred Megan BISWAS Start: 08-20-2024 End: 08-20-2024 ambulatory Megan EVERETT Facility:[facility] Start: 08-03-2024 End: 08-03-2024 Subsequent hospital visit by physician [facility] Exam Room [address] [facility] [address] Comment on above: Arrived Start: 08-03-2024 End: 08-16-2024 ambulatory [facility] Start: 08-03-2024 End: 08-16-2024 Emergency department patient visit Mariana Eduardo GARZA Work Phone: [facility] Comment on above: Aspiration pneumonit is (CMS/HCC) ([facility]) (Primary Dx); Vomiting and diarrhea; LORENZA (acute kidney injury) (HCC) Start: 08-01-2024 End: 08-01-2024 ambulatory SAVANA A MAMMO Facility:[facility] Start: 08-01-2024 End: 08-01-2024 Patient encounter [...] Start: 07-27-2024 ambulatory SAVANA A MAMMO Facility: [facility] Start: 07-23-2024 End: 07-23-2024 ambulatory SAVANA A MAMMO Facility:[facility] Start: 07-23-2024 End: 07-23-2024 Patient encounter [...] 07-12-2024 Evaluation and management of inpatient SELF Facility:[facility] Start: 07-12-2024 End: 07-12-2024 Orders Only [...] 07-09-2024 Evaluation and management of inpatient SELF Facility:[facility] Start: 07-09-2024 End: 07-09-2024 Unlisted evaluation [...] End: 07-18-2024 Evaluation and management of inpatient [facility] Facility:[facility] Start: 07-07-2024 Emergency department patient visit PROVIDER NOT IN SYSTEM Facility:[facility] Start: 07-06-2024 End: 07-06-2024 Telephone encounter Ryan Elizondo MD Work Phone: Ophthalmology Start: 07-05-2024 End: 07-07-2024 ambulatory [facility] Start: 07-05-2024 End: 07-07-2024 Emergency department patient visit Wm Nunes DO Work Phone: [facility] Trauma Neuro Progressive Care Unit PCU 3W Comment on above: Vision loss of right eye (Primary Dx); Acute intractable headache, unspecified headache type; Visual disturbance, subjective Start: 06-19-2024 End: 07-03-2024 ambulatory DEVIKA LEUNG Facility:[facility] Start: 06-19-2024 End: 07-03-2024 Subsequent hospital visit by physician Devika Leung DO Work Phone: [facility] Comment on above: [I63.9] - Cerebral i nfarction Start: 06-10-2024 End: 06-19-2024 Evaluation and management of inpatient TORSTEN SILVA Facility:[facility] Start: 05-22-2024 End: 05-22-2024 ambulatory [facility] Start: 05-21-2024 End: 05-21-2024 ambulatory HARMONY GREY [facility] Start: 05-21-2024 End: 05-21-2024 Anticoagulant drug monitoring Harmony Grey [facility] Work Phone: [facility] Anticoagulation Management Service Comment on above: Atrial fibrillation, unspecified type (HCC); Acute venous embolism and thrombosis of deep vessels of proximal end of right lower extremity (HCC) Start: 05-14-2024 End: 05-14-2024 Subsequent hospital visit by physician Jared Evans MD Work Phone: [facility] Non-Invasive Cardiology Comment on above: Paroxysmal atrial fi brillation (HCC) Start: 05-14-2024 End: 05-14-2024 ambulatory [facility] Start: 05-09-2024 End: 05-09-2024 ambulatory [facility] Start: 05-09-2024 End: 05-09-2024 Anticoagulant drug monitoring Patty Duggan [facility] ED Work Phone: [facility] Anticoagulation Management Service Comment on above: Atrial fibrillation, unspecified type (HCC); Acute venous embolism and thrombosis of deep vessels of proximal end of right lower extremity (HCC) Start: 05-01-2024 End: 05-01-2024 ambulatory [facility] Start: 05-01-2024 End: 05-01-2024 Anticoagulant drug monitoring Won Tipton RN [facility] Anticoagulation Management Service Comment on above: Atrial fibrillation, unspecified type (HCC); Acute venous embolism and thrombosis of deep vessels of proximal end of right lower extremity (HCC) Start: 04-27-2024 End: 04-27-2024 Refill Phyllis Aguilera RN Work Phone: [facility] Anticoagulation Management Service Comment on above: Deep vein thrombosis (DVT) of lower extremity, unspecified chronicity, unspecified laterality, unspecified vein (HCC); Atrial fibrillation, unspecified type (HCC); Acute venous embolism and thrombosis of deep vessels of proximal end of right lower extremity (HCC) Start: 04-25-2024 End: 04-25-2024 Office outpatient visit 15 minutes Henok Hernandez PA-C Work Phone: [facility] [place] Comment on above: Acute deep vein thro mbosis (DVT) of iliac vein of right lower extremity (HCC) (Primary Dx); PAD (peripheral artery disease) (HCC) Start: 04-25-2024 End: 04-25-2024 ambulatory [facility] Start: 04-23-2024 End: 04-23-2024 ambulatory [facility] Start: 04-20-2024 End: 07-20-2024 Transcribe Orders Jared Evans MD Work Phone: [facility] Central Scheduling Comment on above: Paroxysmal atrial fi brillation (HCC) (Primary Dx) Start: 04-19-2024 End: 04-19-2024 ambulatory [facility] Start: 04-19-2024 End: 04-19-2024 Anticoagulant drug monitoring Marybeth Rahman [facility] Anticoagulation Management Service Comment on above: Atrial fibrillation, unspecified type (HCC); Acute venous embolism and thrombosis of deep vessels of proximal end of right lower extremity (HCC) Start: 04-16-2024 End: 04-16-2024 ambulatory ANTHONY YEE [facility] Start: 04-14-2024 End: 04-14-2024 Anticoagulant drug monitoring Ulices Orr PharmD [facility] Pharmacy Comment on above: Deep vein thrombosis (DVT) of lower extremity, unspecified chronicity, unspecified laterality, unspecified vein (HCC) (Primary Dx) Start: 04-03-2024 End: 04-13-2024 Evaluation and management of inpatient Winifred Cornell DO Work Phone: [facility] Medical Unit 4N Comment on above: Ischemic leg (Primar y Dx); Right leg pain; Peripheral arterial disease (HCC); Right leg weakness; Atrial fibrillation, unspecified type (HCC) Start: 07-27-2023 End: 01-10-2024 Office outpatient new 30 minutes Ming Weinberg MD Work Phone: [facility] Comment on above: 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) Start: 06-15-2023 End: 06-15-2023 Subsequent hospital visit by physician Jared Evans MD Work Phone: [facility] MRI Comment on above: Abnormal findings on diagnostic imaging of other specified body structures; Pain in left leg Start: 06-01-2023 Transcribe Orders Jared [facility] Comment on above: Abnormal findings on diagnostic imaging of other specified body structures (Primary Dx); Pain in left leg Start: 05-24-2023 End: 05-24-2023 Subsequent hospital visit by physician Jared Evans MD Work Phone: [facility] US Comment on above: Other specified soft tissue disorders Start: 05-23-2023 Transcribe Orders Jared Evans MD Work Phone[facility] Comment on above: Other specified soft tissue disorders (Primary Dx) Start: 03-08-2023 End: 03-08-2023 Subsequent hospital visit by physician Jared Evans MD Work Phone: [facility] CT Comment on above: Localized swelling, mass and lump, neck Start: 02-28-2023 Transcribe Orders Jared Evans MD Work [facility] Comment on above: Localized swelling, mass and lump, neck (Primary Dx) Start: 02-22-2023 End: 02-22-2023 Subsequent hospital visit by physician Jared Evans MD Work Phone: [facility] US Comment on above: Localized swelling, mass and lump, neck Start: 02-17-2023 Transcribe Orders Jared Evans MD Work [facility] Comment on above: Localized swelling, mass and lump, neck (Primary Dx) Start: 07-06-2022 Telephone encounter Inés ENCINAS Comment on above: Follow Up Phone Call (All Clear) Start: 06-21-2022 End: 06-21-2022 Evaluation and management of inpatient SIM ELIZABETH Facility:[facility] Start: 06-19-2022 ambulatory Tamara Olivares [facility] [place] [facility] [address] CARD/HF/PD Start: 06-16-2022 End: 06-29-2022 Evaluation and management of inpatient BERNIE BIRD Facility:[facility] Start: 05-27-2022 Telephone encounter Jared pennington MD [...] Phone: Start: 09-03-2024 Urine culture Megan pastrana MARGUERITE Start: 08-22-2024 Follow-up visit RED HENDERSON Start: [...] End: 07-05-2024 Blood count complete automated Wm Alexandrekola DO Work Phone: Start: 07-02-2024 Blood count [...] [Units/v olume] in Serum or Plasma Wm 64 Pixelsla DO Work Phone: Start: 05-22-2024 Follow-up visit [...] 04-07-2024 Thromboplastin time partial plasma/whole blood Pratibha Felicianoi DO Work Phone: Start: 04-07-2024 Basic metabolic pane l calcium total Robert Vigil MD Work Phone: Start: 04-06-2024 Thromboplastin time partial plasma/whole blood Pratibha Felicianoi DO Work Phone: Start: 04-06-2024 FL GUIDANCE OR USE O NLY - NON-RESULTABLE Kristyn Blankenship MD Work Phone: Start: 04-06-2024 Antibody screen [facility] Comment on above: Performed By: #### L [id number] ####Software Writer: VELMA VALADEZ ([id number])[facility] ([facility])[address] [place] [address] Start: 04-06-2024 Blood typing serologic abo Kristyn [...] Cta abdl aorta&bi il iofem w/contrast&postp Bernie Doner PROF[employer]UC[employer] - NON PROFIT [employer]CIAL [employer]ER Work Phone: Start: 04-03-2024 Ct head/brain w/o co ntrast material Bernie Doner [employer] - NON PROFIT FIN[employer]CIAL [employer]ER Work Phone: Start: 04-03-2024 Comprehensive metabo lic panel Bernie Doner PROF[employer] - NON PROFIT [employer]CIAL [employer]ER Work Phone: Start: 04-03-2024 Ecg routine ecg w/le ast 12 lds trcg only w/o i&r Bernie He PROF[employer]UC[employer] - NON PROFIT FIN[employer]CIAL [employer]ER Work Phone: Start: 06-15-2023 Mri lower extrem oth /thn jt w/o & w/contr matr Jared Evans MD Work Phone: Start: 05-24-2023 Dup-scan xtr veins unilateral/limited study Jared Evans MD Work Phone: Start: 06-21-2022 Antibody screen BERNIE BIRD Comment on above: Order Comment: Speci men Type: BLOOD SPECIMEN Ordering Facility: [facility] Address: [address] [place], [place] [id number] Performed By: #### T SCR #### [facility] [id number] [address] [place] [address] [place] Start: 03-07-2020 OPERATIVE REPORT 3m Sca nning Start: 02-08-2020 INCISION AND DRAINAGE R mona Mora Work Phone: Plan of Treatment Date Care Activity Detail Author Start: 02-15-2029 DTaP/Tdap/Td vaccine (2 - Td) DTaP/Tdap/Td vaccine (2 - Td) [facility] [place] Start: 02-15-2029 DTaP/Tdap/Td Vaccines (2 - Td or Tdap) DTaP/Tdap/Td Vaccines (2 - Td or Tdap) [facility] Start: 02-15-2029 Urine microalbumin profile DTaP,Tdap,Td Vaccine (2 - Td or Tdap) [facility] Start: 08-05-2027 Diabetes Screening Diabetes Screening [facility] Start: 07-07-2027 Diabetes Screening Diabetes Screening [facility] Start: 07-06-2027 Diabetes Screening Diabetes Screening [facility] Start: 06-21-2027 Diabetes Screening Diabetes Screening 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, right eye Subluxation of right lens Expected: 08/16/2025, Expires: 01/23/2026 [facility] Work Phone: Comment on above: Expected: 08/16/2025, Expires: Start: 08-05-2025 Diabetes: Estimated Glomerular Filtration Rate for [facility] Diabetes: Estimated Glomerular Filtration Rate for [facility] Start: 08-04-2025 Diabetes: Estimated Glomerular Filtration Rate for [facility] Diabetes: Estimated Glomerular Filtration Rate for [facility] Start: 07-31-2025 End: 01-07-2026 Right eye Photo documentation FUNDUS PHOTOS OD (RIGHT EYE) [facility] Imaging Routine Postoperative eye state 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 Start: 06-10-2025 Thyroid stimulating hormone measurement TSH Level [facility] Start: 05-18-2025 DIABETES SCREEN DIABETES SCREEN [facility] Start: 03-18-2025 Influenza vaccination [facility] Start: 03-15-2025 End: 03-15-2025 Patient encounter procedure 03/15/2025 11:15 AM EDT Office Visit [facility] [address] [place] [phone] Andre Patel MD [address] [facility] [address] [place] [address] [facility] Start: 01-02-2025 End: 01-02-2025 Patient encounter procedure 01/02/2025 9:45 AM EDT Office Visit [facility] [address] [place] [address] Savana Lopez MD [address] [place] [address] *3 M, DFE Ophthalmology Comment on above: *3 M, DFE Start: 12-24-2024 End: 12-24-2024 Patient encounter procedure 12/24/2024 2:30 PM EDT Office Visit [facility] [place] [address] [place] [phone] Kristyn Blankenship MD [address] [place] [address] [facility] [place] Start: 12-05-2024 End: 12-05-2024 Patient encounter procedure 12/05/2024 10:00 AM EDT Office Visit [facility] [place] [address] [place] [phone] Kristyn Blankenship MD [address] [place] [address] [facility] [place] Start: 11-22-2024 End: 11-22-2024 Admission to same day surgery center 11/22/2024 9:30 AM EDT - 11/22/2024 11:30 AM EDT Surgery [facility] MA[facility] OR [address] [facility] [place] [address] Kristyn Blankenship MD [address] [place] [address] AORTOILIAC ANGIOGRAPHY, RIGHT LOWER EXTREMITY ANGIOGRAPHY WITH RUNOFF, POSSIBLE SUPERFICIAL FEMORAL ARTERY/POPLITEAL/TIBIAL ANGIOPLASTY/STENTING [55406 (CPT )] [facility] MAIN OR Comment on above: AORTOILIAC ANGIOGRAPHY, RIGHT LOWER EXTR EMITY ANGIOGRAPHY WITH RUNOFF, POSSIBLE SUPERFICIAL FEMORAL ARTERY/POPLITEAL/TIBIAL ANGIOPLASTY/STENTING [87611 (CPT )] Start: 11-22-2024 End: 11-22-2024 Angiography extremity unilateral rs&i ANGIOGRAM, EXTREMITY Skin ulcer of right great toe (HCC) Critical limb ischemia of right lower extremity (HCC) 11/22/2024 9:30 AM EDT [facility] Operating Room Start: 11-22-2024 Subsequent hospital visit by physician 11/22/2024 9:30 AM EDT Hospital Encounter [facility] [address] [place] [address] Kristyn Blankenship MD [address] [place] [id number] [facility] OR Start: 11-20-2024 Subsequent hospital visit by physician 11/20/2024 Hospital Encounter [facility] [address] [place] [address] Kristyn Blankenship MD [address] [place] [phone] [facility] MAIN OR Start: 11-13-2024 End: 11-13-2025 Basic metabolic 1998 panel - Serum or Plasma Basic metabolic panel Lab Routine Pre-op evaluation Expected: 11/13/2024 (Approximate), Expires: 11/13/2025 [facility] Comment on above: Expected: 11/13/2024 (Approximate), Expi res: 11/13/2025 Start: 11-13-2024 End: 11-13-2025 CBC W Auto Differential panel - Blood CBC auto differential Lab Routine Pre-op evaluation Expected: 11/13/2024 (Approximate), Expires: 11/13/2025 [facility] System Work Phone: Comment on above: Expected: 11/13/2024 (Approximate), Expi res: 11/13/2025 Start: 10-01-2024 End: 10-01-2024 Patient encounter procedure 10/01/2024 10:30 AM EDT Office Visit [facility] [address] [address] Savana Lopez MD [address] [place] [address] 26 Day F/U ~ DFE OD bscan OD . Ophthalmology Comment on above: 26 Day F/U ~ DFE OD bscan OD . Start: 08-22-2024 End: 08-22-2024 Patient encounter procedure 08/22/2024 10:30 AM EST Office Visit [facility] [place] [address] [place] [phone] Henok Lantigua PA-C [address] [place] [phone] [facility] [place] Start: 08-15-2024 End: 08-15-2024 Patient encounter procedure 08/15/2024 9:45 AM EST Office Visit [facility] [address] [place] [address] Savana Lopez MD [address] [place] [address] *1 month post op Ophthalmology Comment on above: *1 month post op Start: 08-06-2024 End: 08-06-2024 Patient encounter procedure 08/06/2024 11:00 AM EST Office Visit [facility] [place] [address] [place] [phone] Henok Lantigua PA-C [address] [place] [phone] [facility] [place] Start: 08-01-2024 End: 08-01-2024 Patient encounter procedure Ophthalmology Comment on above: *1 week post op Start: 07-31-2024 End: 07-31-2024 Patient encounter procedure [facility] V[facility] Surgery [facility] Start: 07-27-2024 End: 07-27-2024 Admission to same day surgery center 07/27/2024 10:50 AM EST - 07/27/2024 12:40 PM EST Surgery Ophthalmology [address] [address] Savana Lopez MD [address] [place] [address] VITRECTOMY 25G [facility] PARS PLANA APPROACH W/ REMOVAL OF PRERETINAL CELLULAR MEMBRANE Ophthalmology Comment on above: VITRECTOMY 25G [facility] PARS PLANA APPROACH W/ REMOVAL OF PRERETINAL CELLULAR MEMBRANE Start: 07-27-2024 End: 07-27-2024 Aspiration/release vitreous subretinal/choroidal RELEASE OF VITREOUS, CHOROIDAL FLUID, PARS PLANA APPROACH Hemorrhagic choroidal detachment of right eye 07/27/2024 10:50 AM EST [facility] Start: 07-27-2024 Subsequent hospital visit by physician 07/27/2024 10:50 AM EST Hospital Encounter Ophthalmology [address] [address] Savana Lopez MD [address] [place] [address] 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] Ophthalmology Comment on above: Hemorrhagic choroidal detachment of righ t eye [H31.411] Start: 07-27-2024 End: 07-27-2024 Vitrectomy pars plana remove preretinal membrane VITRECTOMY 25G [facility] PARS PLANA APPROACH W/ REMOVAL OF PRERETINAL CELLULAR MEMBRANE Hemorrhagic choroidal detachment of right eye 07/27/2024 10:50 AM EST [facility] Start: 07-23-2024 End: 07-23-2024 Patient encounter procedure 07/23/2024 10:45 AM EST Office Visit [facility] [address] [address] Savana Lopez MD [address] [place] [address] *1 W, DFE OD/BSCAN OD/OPTOS OD Ophthalmology Comment on above: *1 W, DFE OD/BSCAN OD/OPTOS OD Start: 07-18-2024 Advance Directive Discussion Advance Directive Discussion [facility] Start: 07-18-2024 Medicare Advantage Annual Wellness Visit Medicare Advantage Annual Wellness Visit [facility] [employer] Start: 07-16-2024 End: 07-16-2024 Patient encounter procedure Ophthalmology Comment on above: Please schedule this patient with Dr. Steffen grey Tuesday07/16/24. Ok to over book per Dr. Lopez *NEW, HEMORRHAGIC CH OROIDALS/MONOCULAR, DFE OD/g SCAN OD ok per DM Start: 07-13-2024 End: 07-13-2024 Aspiration/release vitreous subretinal/choroidal ASPIRATION VITREOUS, CHOROIDAL FLUID, PARS PLANA APPROACH Hemorrhagic choroidal detachment of right eye 07/13/2024 2:04 PM EST [facility] Start: 07-13-2024 End: 07-13-2024 Evaluation and management of inpatient 07/13/2024 2:04 PM EST - 07/13/2024 3:24 PM EST Surgery Ophthalmology [address] [address] Savana Lopez MD [address] [place] [address] ASPIRATION VITREOUS, CHOROIDAL FLUID, PARS PLANA APPROACH Ophthalmology Comment on above: ASPIRATION VITREOUS, CHOROIDAL FLUID, PA RS PLANA APPROACH Start: 06-04-2024 End: 05-21-2025 POCT Prothrombin Time INR ([facility]) POCT Prothrombin Time INR ([facility]) Lab Routine Atrial fibrillation, unspecified type (HCC) Acute venous embolism and thrombosis of deep vessels of proximal end of right lower extremity (HCC) Expected: 06/04/2024, Expires: 05/21/2025 [facility] [employer] [facility] Work Phone: Comment on above: Expected: 06/04/2024, Expires: Start: 06-04-2024 End: 06-04-2024 Anticoagulant drug monitoring 06/04/2024 1:15 AM EST Anticoagulation - Warfarin Visit [facility] Anticoagulation Management Service [phone] [place] [address] [facility] Anticoagulation Management Service Start: 05-22-2024 End: 05-22-2024 Patient encounter procedure 05/22/2024 3:00 PM EST Office Visit [facility] Cardiology - [place] [address] [place] [address] [address] [place] [phone] Hermila Padilla MD [address] [facility] [address] [place], [place] [phone] [facility] Cardiology - [place] [facility] Start: 05-22-2024 End: 05-22-2024 Anticoagulant drug monitoring 05/22/2024 12:45 AM EST Anticoagulation - Warfarin Visit [facility] Anticoagulation Management Service [address] [phone] [facility] Anticoagulation Management Service Start: 05-14-2024 End: 05-14-2024 Patient encounter procedure 05/14/2024 2:00 PM EDT Appointment [facility] Non-Invasive Cardiology [address] [place] [phone] [facility] Non-Invasive Cardiology Start: 05-08-2024 End: 05-01-2025 POCT Prothrombin Time INR ([facility]) POCT Prothrombin Time INR ([facility]) Lab Routine Atrial fibrillation, unspecified type (HCC) Acute venous embolism and thrombosis of deep vessels of proximal end of right lower extremity (HCC) Expected: 05/08/2024 (Approximate), Expires: 05/01/2025 [facility] System Work Phone: Comment on above: Expected: 05/08/2024 (Approximate), Expi res: 05/01/2025 Start: 05-08-2024 End: 05-08-2024 Anticoagulant drug monitoring 05/08/2024 1:30 AM EDT Anticoagulation - Other Visit [facility] Anticoagulation Management Service [address] [phone] [facility] Antico[facility] Management Service Start: 05-01-2024 End: 05-01-2024 Anticoagulant drug monitoring 05/01/2024 Anticoagulation - Warfarin Visit [facility] Anticoagulation Management Service [address] [phone] [facility] Antico[facility] Management Service Start: 04-23-2024 End: 04-19-2025 POCT Prothrombin Time INR ([facility]) POCT Prothrombin Time INR ([facility]) Lab Routine Atrial fibrillation, unspecified type (HCC) Acute venous embolism and thrombosis of deep vessels of proximal end of right lower extremity (HCC) Expected: 04/23/2024 (Approximate), Expires: 04/19/2025 [employer] Work Phone: Comment on above: Expected: 04/23/2024 (Approximate), Expi res: 04/19/2025 Start: 04-23-2024 End: 04-23-2024 Patient encounter procedure 04/23/2024 9:15 AM EDT [facility] [address] [place] [phone] Henok Hernandez PA-C [address] [place], [place] [phone] [facility] Start: 04-23-2024 End: 04-23-2024 Anticoagulant drug monitoring 04/23/2024 1:15 AM EDT [facility] [address] [place] [phone] [facility] Start: 04-19-2024 End: 04-19-2024 Anticoagulant drug monitoring 04/19/2024 1:00 AM EDT An[facility] - [facility] [address] [place] [phone] [facility] Start: 04-16-2024 End: 04-16-2025 POCT Prothrombin Time INR ([facility]) POCT Prothrombin Time INR ([facility]) Lab Routine Deep vein thrombosis (DVT) of lower extremity, unspecified chronicity, unspecified laterality, unspecified vein (HCC) Expected: 04/16/2024, Expires: 04/16/2025 [employer] Work Phone: Comment on above: Expected: 04/16/2024, Expires: Start: 03-18-2024 Covid-19 Vaccine ( season) Covid-19 Vaccine ( season) [facility] Start: 03-18-2024 Influenza vaccination Influenza Vaccine (#1) [facility] [employer] Start: 07-18-2023 Advance Directive Discussion Advance Directive Discussion [facility] Start: 07-18-2023 Medicare Advantage Annual Wellness Visit Medicare Advantage Annual Wellness Visit [facility] Start: 03-18-2023 Influenza vaccination Influenza Vaccine (#1) [facility] Start: 03-18-2022 Influenza vaccination INFLUENZA (#1) [facility] Start: 07-18-2021 ADVANCE DIRECTIVE DISCUSSION ADVANCE DIRECTIVE DISCUSSION [facility] Start: 07-18-2021 DEPRESSION ASSESSMENT DEPRESSION ASSESSMENT [facility] Start: 03-18-2020 Influenza vaccination Flu vaccine (#1) [place], [place] Start: 03-13-2020 End: 03-13-2020 Office Visit 03/13/2020 Office Visit Orthopedic Surgery Jayla Mcmahan MD [address] [facility] [address] [place] [address] [phone] [facility] Medical [facility] [place] Start: 03-07-2020 Hospital Encounter 03/07/2020 Hospital Encounter IP Unit Jayla Mcmahan MD [address] [facility] [address] [place], [place] [phone] [facility] Dept Start: 03-06-2020 Annual Wellness Visit (AWV) Annual Wellness Visit (AWV) [place] Start: 04-12-2019 Pneumococcal Vaccine: 50+ Years (2 of 2 - PPSV23) Pneumococcal Vaccine: 50+ Years (2 of 2 - PPSV23) [facility] Start: 04-12-2019 Pneumococcal Vaccine: 65+ Years (2 - PPSV23 if available, else PCV20) Pneumococcal Vaccine: 65+ Years (2 - PPSV23 if available, else PCV20) [facility] Start: 04-12-2019 Pneumococcal Vaccine: 65+ Years (2 - PPSV23 or PCV20) Pneumococcal Vaccine: 65+ Years (2 - PPSV23 or PCV20) [facility] Start: 04-12-2019 Pneumococcal Vaccine: 65+ Years (2 of 2 - PPSV23 or PCV20) Pneumococcal Vaccine: 65+ Years (2 of 2 - PPSV23 or PCV20) [facility] Start: 02-13-2016 DIABETES SCREEN DIABETES SCREEN [facility] Start: 09-24-2014 RSV Immunization for Adults (1 - 1-dose 75+ series) RSV Immunization for Adults (1 - 1-dose 75+ series) [facility] Start: 04-23-2010 DIABETES SCREEN DIABETES SCREEN [facility] Start: 09-24-2004 BONE DENSITY BONE DENSITY [facility] Start: 09-24-2004 Pneumococcal 65+ years Vaccine (2 of 2 - PPSV23) Pneumococcal 65+ years Vaccine (2 of 2 - PPSV23) [place] Start: 09-24-2004 PNEUMOCOCCAL: 65+ (1 - PCV) PNEUMOCOCCAL: 65+ (1 - PCV) [facility] Start: 09-24-2004 Screening for osteoporosis Bone Density Screening [facility] Start: 1999 RSV Immunization aged 60 or older (1 - 1-dose 60+ series) RSV Immunization aged 60 or older (1 - 1-dose 60+ series) [facility] Start: 09-24-1994 Screening for osteoporosis DEXA (modify frequency per FRAX score) [place] Start: 09-24-1989 Shingles Vaccine (1 of 2) Shingles Vaccine (1 of 2) [place] Start: 09-24-1989 SHINGRIX VACCINE (1 of 2) SHINGRIX VACCINE (1 of 2) [facility] Start: 09-24-1989 Zoster Vaccines (1 of 2) Zoster Vaccines (1 of 2) [facility] Start: 09-24-1958 Urine microalbumin profile DTAP,TDAP,TD (1 - Tdap) [facility] Start: 09-24-1958 Zoster Vaccines (1 of 2) Zoster Vaccines (1 of 2) [facility] Start: 09-24-1957 Anxiety Screening Anxiety Screening [facility] Start: 09-24-1957 Depression Screening Depression Screening [facility] Start: 09-24-1957 Diabetes: Urine Albumin-Creatinine Ratio for Kidney Health Diabetes: Urine Albumin-Creatinine Ratio for Kidney Health [facility] Start: 09-24-1957 SPIROMETRY SPIROMETRY [facility] Start: 1951 Depression Monitoring Depression Monitoring [facility] Start: 1951 Depresssion Monitoring Depresssion Monitoring [facility] Start: 09-24-1945 PNEUMOCOCCAL: 65+ (1 - PCV) PNEUMOCOCCAL: 65+ (1 - PCV) [facility] Start: 09-24-1944 COVID-19 Vaccine (#1) COVID-19 Vaccine (#1) [facility] Start: 03-27-1940 COVID-19 VACCINE (#1) COVID-19 VACCINE (#1) [facility] Start: 1939 Creatinine measurement Creatinine monitoring M-KOP[facility] [place] Start: 1939 Lipid panel Lipid Panel [facility] Start: 1939 Medicare Advantage Annual Wellness Visit (AWV) Medicare Advantage Annual Wellness Visit (AWV) [facility] Start: 1939 Potassium monitoring Potassium monitoring [facility] [place] [place] Start: 1939 Screening for osteoporosis Bone Density Scan [facility] Start: 1939 Thyroid stimulating hormone measurement TSH Level [facility] Angiography extremit y unilateral rs&i AORTOGRAM, WITH SERIALOGRAPHY Critical limb ischemia of right lower extremity (HCC) [facility] Operating Room Aortography abdomina l serialography rs&i AORTOGRAM, WITH SERIALOGRAPHY Critical limb ischemia of right lower extremity (HCC) [facility] Operating Room BSCAN OD (RIGHT EYE) BSCAN OD (R IGHT EYE) [facility] Imaging Routine Hemorrhagic choroidal detachment of right eye 07/09/2024 9:09 AM EST [facility] Work Phone: End: 01-03-2026 BSCAN OD (RIGHT EYE) BSCAN OD (RIGHT EYE) [facility] Imaging Routine Hemorrhagic choroidal detachment of right eye Dislocation of intraocular lens, initial encounter 1 Occurrences starting 07/12/2024 until 01/03/2026 [facility] Work Phone: Comment on above: 1 Occurrences starting 07/12/2024 until 01/03/2026 End: 01-07-2026 BSCAN OD (RIGHT EYE) BSCAN OD (RIGHT EYE) [facility] Imaging Routine Postoperative eye state 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 Comment on above: 1 Occurrences starting 07/16/2024 until 01/07/2026 End: 02-27-2026 BSCAN OD (RIGHT EYE) BSCAN OD (RIGHT EYE) [facility] Imaging Routine Postoperative eye state 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, right eye Subluxation of right lens 1 Occurrences starting 09/05/2024 until 02/27/2026 [facility] Work Phone: Comment on above: 1 Occurrences starting 09/05/2024 until 02/27/2026 Camera fundoscopy FUNDUS PHOTOS OU (BOTH EYES) [facility] Imaging Routine Hemorrhagic choroidal detachment of right eye 07/09/2024 8:35 AM [facility] End: 03-08-2023 CT Neck W contrast IV [facility] [employer] Work Phone: Comment on above: Once for 1 Occurrences starting 03/08/20 until 03/08/2023 Incision/Drainage Incision/Drain age Procedures Routine 02/08/2020 7:17 PM EDT [employer] [facility] OUTSIDE PROCEDURE SCAN OUTSIDE P ROCEDURE SCAN Procedures Ordered: 02/21/2023 [employer] Comment on above: Ordered: 02/21/2023 OUTSIDE PROCEDURE SCAN OUTSIDE P ROCEDURE SCAN Procedures Ordered: 03/07/2023 [employer] Comment on above: Ordered: 03/07/2023 OUTSIDE PROCEDURE SCAN OUTSIDE P ROCEDURE SCAN Procedures Ordered: 05/24/2023 [employer] Comment on above: Ordered: 05/24/2023 OUTSIDE PROCEDURE SCAN OUTSIDE P ROCEDURE SCAN Procedures Ordered: 06/14/2023 [employer] Comment on above: Ordered: 06/14/2023 Oxygen therapy [Minimum Data Set] Initiate Oxygen Therapy Protocol Respiratory Care Routine Daily until discontinued starting 03/07/2020 [email or web address] Comment on above: Daily until discontinued starting 2019 End: 02-22-2023 US Head and neck soft tissue [employer] Work Phone: Comment on above: Once for 1 Occurrences starting 02/23/20 until 02/22/2023 End: 03-06-2020 XR FINGER RIGHT (MIN 2 VIEWS) XR FINGER RIGHT (MIN 2 VIEWS) Imaging Routine Once for 1 Occurrences starting 03/06/2020 until 03/06/2020 [employer] [facility] Comment on above: Once for 1 Occurrences starting 03/06/20 until 03/06/2020 XR FINGER RIGHT (MIN 2 VIEWS) XR FINGER RIGHT (MIN 2 VIEWS) Imaging Routine 03/06/2020 10:20 AM EDT [employer] [facility] Immunizations Immunization Date Immunization Notes Care Provider Abe faustin 05-19-2021 Influenza, High-dose Seasonal, Quadrivalent, Preservative Free Ming Weinberg MD Work Phone: [email or web address] 05-19-2021 influenza virus vaccine, unspecified formulation Jared Evans MD Work Phone: [facility] [employer] 02-15-2019 pneumococcal conjuga te vaccine, 13 valent Ming Weinberg MD Work Phone: [email or web address] 02-15-2019 tetanus toxoid, redu larissa diphtheria toxoid, and acellular pertussis vaccine, adsorbed Ming Weinberg MD Work Phone: [email or web address] 06-29-2013 influenza, high dose seasonal, preservative-free Ming Weinberg MD Work Phone: [email or web address] NEGATED: Highlighted row has not occurred!04-05-2024 Seasonal trivalent influenza vaccine, adjuvanted, preservative free Winifred Cornell DO Work Phone: [email or web address] Comment on above: Deferred: Patient Re fused Payers Date Payer Category Payer Unknown [id number] 2024 Self-pay 2023 Private Health Insurance HUMANA HUMANA MEDICARE SUPPLEMENT [id number] 2023-[address] [place] [phone] Commercial [id number] 2017 Medicare [id number]. [id number] 2017 Medicare (Managed Care) JURGENA M EDMIKERE [id number] 2017 Medicare HMO HUMANA MEDICARE [id number] 2017 Medicare [id number]. 2.7.3.117544.315 1939 Unknown [id number] 2.16.840.1.330316.3.579. 2.594 Unknown [id number]. 1.13.159. 2.7.3.677194.315 Unknown [id number] 2.16.840.1.006037.3.579. 2.462 Unknown [id number] 2.16.840.1.361693.3.579. 2.462 Unknown [id number] 2.16.840.1.325422.3.579. 2.462 Unknown [id number] 2.16.840.1.050576.3.579. 2.462 Unknown [id number] 2.16.840.1.227698.3.579. 2.462 Unknown [id number] 2.16.840.1.081481.3.579. 2.462 Unknown [id number] 2.16.840.1.247229.3.579. 2.462 Unknown [id number] 2.16.840.1.196942.3.579. 2.462 Unknown [id number] 2.16.840.1.499491.3.579. 2.462 Unknown [id number] 2.16.840.1.538604.3.579. 2.462 Unknown [id number] 2.16.840.1.118648.3.579. 2.462 Unknown [id number] 2.16.840.1.433024.3.579. 2.462 Unknown [id number] 2.16840.1.600217.3.579. 2.462 Unknown [id number] 2.16.840.1.210250.3.579. 2.462 Unknown [id number] 2.840.1.756627.3.579. 2.462 Unknown [id number] 2.840.1.060732.3.579. 2.462 Unknown [id number] 2.840.1.561711.3.579. 2.462 Unknown [id number] 2.840.1.111801.3.579. 2.462 Unknown [id number] 2.840.1.115335.3.579. 2.462 Unknown [id number] 2.840.1.980792.3.579. 2.462 Unknown [id number] 2.840.1.088597.3.579. 2.462 Unknown [id number] 2.840.1.159534.3.579. 2.462 Unknown [id number] 2.840.1.308120.3.579. 2.462 Unknown [id number] 2.840.1.119724.3.579. 2.462 Unknown [id number] 2.840.1.601314.3.579. 2.462 Unknown [id number] 2.840.1.934753.3.579. 2.462 Unknown [id number] 2.840.1.833766.3.579. 2.462 Unknown [id number] 2.16.840.1.965749.3.579. 2.462 Unknown [id number] 2.16.840.1.919201.3.579. 2.462 Unknown [id number] 2.16.840.1.852925.3.579. 2.462 Unknown [id number] 2.16.840.1.138134.3.579. 2.462 Unknown [id number] 2.16.840.1.120135.3.579. 2.462 Unknown [id number] 2.16.840.1.162561.3.579. 2.462 Social History Date Type Detail Facility Start: 02-08-2020 Tobacco smoking stat [facility] Current some day smoker [place] Start: 02-08-2020 End: 04-20-2024 Alcohol intake Current drinker of alcohol (finding) [place] Start: 02-08-2020 End: 05-22-2024 Alcohol Comment occ [place] Start: 1940 Sex Assigned At Not on file [place], [place] Start: 05-04-2022 End: 03-08-2023 Exposure to SARS-CoV-2 (event) Not sure [place] Start: 03-06-2020 End: 04-25-2024 Tobacco smoking status NHIS Former smoker [place] Start: 03-06-2020 End: 04-25-2024 Tobacco use and exposure Never used [place] Tobacco smoking stat [facility] Tobacco smoking consumption unknown [facility] Start: 05-17-2022 End: 04-04-2024 Tobacco smoking status WVIS Smokes tobacco daily [facility] History of tobacco use Cigarette Smoker C [facility] Start: 05-17-2022 End: 08-11-2024 Cigarettes smoked current (pack per day) - Reported 0.[address] [facility] Start: 05-18-2022 History SDOH Financial [address] [facility] Start: 05-18-2022 History SDOH Food Worry [address] [facility] Start: 05-18-2022 History SDOH Transpo rt Med [address] [facility] Start: 07-05-2022 End: 03-15-2025 Alcohol intake Ex-drinker (finding) [facility] History of tobacco use Current smoker [facility] Start: 07-27-2023 End: 08-11-2024 Gender identity Not on file [facility] How often do you nee d to have someone help you when you read instructions, pamphlets, or other written material from your doctor or pharmacy [SILS] Never [facility] Has the [employer], [employer], or [employer] threatened to shut off services in your home in past 12Mo No [facility] Are you now , , , , never or living with a partner? [facility] How often to you hav e a drink containing alcohol? Monthly or less [facility] How often do you hav e 6 or more drinks on 1 occasion? Never [facility] How hard is it for y ou to pay for the very basics like food, housing, medical care, and heating Not very hard [facility] Do you feel stress - tense, restless, nervous, or anxious, or unable to sleep at night because your mind is troubled all the time - these days [OSQ] Not at all [facility] (I/We) worried wheth er (my/our) food would run out before (I/we) got money to buy more. Never true [facility] Start: 02-15-2022 End: 10-25-2024 Sex Female (finding) [facility] Start: 1940 Sex assigned at Female S [facility] Start: 08-03-2024 Gender identity Identifies as female gender (finding) [facility] Start: 08-03-2024 Sexual orientation Heterosexual (fin ding) [facility] NEGATED: Highlighted rowStart: NINF History of tobacco use Passive smoker [facility] Medical Equipment Procedure Code Equipment Code Equipment Origin al Text Equipment Identifier Dates Gas Ispan [employer] Intraocular Vision System [id number] - [id number] Start: 07-27-2024 Stent Vasc 6x40x 125 6f Zilver - Sna - [id number] Start: 11-22-2024 Stent Oliva 5x40x1 25 6f [employer]ilver - Sna - [id number] Start: 11-22-2024 Functional Status Date Assessment Result Facility 07-18-2024 Are you deaf, or do you have serious difficulty hearing No 07/18/2024 12:17 PM Jaci Umana RN No [facility] 07-18-2024 Are you blind, or do you have serious difficulty seeing, even when wearing glasses Yes 07/18/2024 12:17 PM Jaci Umana, RADHA Yes [facility] 07-18-2024 Do you have serious difficulty walking or climbing stairs Yes 07/18/2024 12:17 PM Jaci Umana RN Yes [facility] 07-18-2024 Do you have difficul ty dressing or bathing Yes 07/18/2024 12:17 PM Jaci Umana RN Yes [facility] 07-18-2024 Because of a physica l, mental, or emotional condition, do you have difficulty doing errands alone such as visiting a physician's office or shopping Yes 07/18/2024 12:17 PM Jaci Umana RN Yes [facility] Mental Status Date Assessment Result Facility 07-18-2024 Because of a physica l, mental, or emotional condition, do you have serious difficulty concentrating, remembering, or making decisions No 07/18/2024 12:17 PM Jaci Umana RN No [facility] Clinical Notes 05-14-2022 to 03-15-2025 Andre Berry MD - 03/15/2025 11:15 AM Savana Triana MD - 01/02/2025 9:45 AM Cindy Blankenship MD - 12/24/2024 2:30 PM Cindy Blankenship MD - 12/05/2024 10:00 AM EDTDischarge Instructions Note Date & Type Note Facility 03-15-2025 History of Present illness Narrative Images from the original note were not included. Andre Patel MD [facility] Hematology/Oncology - [facility] [address] [facility] [address] [facility] [address] Dept: [phone] Dept PROBLEM LIST: 1. Recurrent DVT: Initially [...] completing clinical documentation as well as with [id number] patient care, performing a medically appropriate examination, counseling / educating the patient/family/caregiver, and ordering medications, tests, or procedures. HPI: Mel Pop is a 84 y.o. female who presents here today with VTE Pt w/ history of severe atherosclerosis, COPD, former smoker, diverticulosis, afib, hypertension, and GERD who presented to [facility] for right lower extremity pain. [...] trifurcation vessels. Vascular surgery recommended transfer to [facility]. PVR and BLE US results pending [...] to Coumadin. Here today w/ Lavelle (social insurance adviser from [facility]) as well as Fidel STAPLETON Pt [...] Resource Strain: Low Risk (06/20/2024) Received from [facility] Medical Overall Financial Resource Strain [...] min Stress: Patient Unable To Answer (08/03/2024) [place] [employer] - Occupational Stress Questionnaire Feeling of Stress : Patient unable to answer Social Connections: Unknown (08/03/2024) Social Connection and Isolation Panel [NHANES] Frequency of Communication with Friends and Family: Patient unable to answer Frequency of Social Gatherings with Friends and Family: Patient unable to answer Attends Anglican Services: Patient unable to answer Active Member of Clubs or Organizations: Patient unable to answer Attends Club or Organization Meetings: Never Marital Status: Patient unable to answer Recent Concern: Social Connections - Moderately Isolated (06/20/2024) Received from [facility] Social Connection and Isolation Panel [NHANES] Frequency of Communication with Friends and Family: More than three times a week Frequency of Social Gatherings with Friends and Family: Once a week Attends Anglican Services: More than 4 times per year [...] (97.4 F) (Temporal) Ht 1.6 m (5' 3) Wt 69.4 kg (153 lb) Comment: unable [...] recognition and may contain minor errors in business systems lead. [1] Past Medical History: Diagnosis Date Arrhythmia PAF Asthma Chronic kidney disease COPD (chronic obstructive pulmonary disease) ([facility]) DVT (deep venous thrombosis) ([facility]) Essential hypertension 03/07/2020 GERD (gastroesophageal reflux disease) Hiatal hernia IBS (irritable bowel syndrome) Pure hypercholesterolemia 03/07/2020 PVD (peripheral vascular disease) ([facility]) Stroke ([facility]) [2] Past Surgical History: Procedure Laterality Date ANKLE SURGERY ARM SURGERY (HISTORICAL) Right COLONOSCOPY ESOPHAGEAL DILATION EYE SURGERY Right 07/05/2024 [facility] EYE SURGERY Right 06/2024 x2, [facility] FINGER AMPUTATION Right 03/07/2020 right index [...] Percocet [Oxycodone-Acetaminophen] Itching documented in this encounter [facility] 01-02-2025 History of Present illness Narrative Can [...] choroidals (not yet appositional) - Evaluated at [facility] 07/12/24 with intense nausea and multiple episodes [...] to HTN (SBP 199/99 at presentation to [facility]) and anticoagulation that led to angle closure [...] documented in this encounter [facility] 01-02-2025 Note HNO ID: [id number] Author: SAVANA LOPEZ MD Service: ? Author Type: Physician Type: Progress Notes Filed: 01/02/2025 12:56 Note Text: Can see shadows; No pain right eye Suprachoroidal hemorrhage RIGHT EYE S/p choroidal drainage RIGHT eye on 07/13/24 for choroidal hemorrhage with repositioning of IOL (Kareno/Luis Alberto) S/p Choroidal drainage/PPV/EL/PFO/FAX/C3F8 (16%) RIGHT eye [...] choroidals (not yet appositional) - Evaluated at [facility] 07/12/24 with intense nausea and multiple episodes [...] to HTN (SBP 199/99 at presentation to [facility]) and anticoagulation that led to angle closure [...] plan as state (more content not included)... 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 HYSTERECTOMY ORTHOPEDIC SURGERY THROMBECTOMY Right 04/06/2024 RLE mechanical thrombectomy (Krzysztof) VASCULAR SURGERY Right 11/22/2024 AORTOILIAC ANGIOGRAPHY, RIGHT LOWER EXTREMITY ANGIOGRAPHY WITH RUNOFF, SUPERFICIAL FEMORAL ARTERY, POPLITEAL,TIBIAL ANGIOPLASTY and STENTING (Krzysztof) VASCULAR SURGERY Left 11/22/2024 Left femoral angiography (Krzysztof) documented in this encounter [facility] [place] 12-05-2024 History of Present illness Narrative 12/05/2024 Mel Gallegosd 1940 Chief Complaint Patient presents with Follow-up [...] right with MICHELLE PAD (peripheral artery disease) ([facility]) Relevant Orders Vascular US lower extremity arterial [...] I reviewed the images with the patient's flyjmyan-jx-ijn who was present for today's visit as the patient is blind. Follow up after arterial duplex to discuss the results. Kristyn Blankenship MD Vascular Surgery [1] Past Surgical History: Procedure Laterality Date ANKLE SURGERY ARM SURGERY (HISTORICAL) Right COLONOSCOPY ESOPHAGEAL DILATION EYE SURGERY Right 07/05/2024 [facility] EYE SURGERY Right 06/2024 x2, 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 Groin site remains intact and LE distal pulses unchanged via assessment with doppler. Transportation called for pickling machine operator [facility] 11-22-2024 Miscellaneous Notes POA called to bedside and discharge instructions reviewed. Groin site remains intact and LE distal pulses unchanged via assessment with doppler. Transportation called for pickling machine operator POA given updated via phone [...] the patient as well as the patient's pyjujnsy-nb-ura Fidel. They have elected to proceed. PROCEDURE [...] technique was used to place a 5 Turkish sheath. The Bentson wire was positioned in [...] catheter and the catheter removed. The 5 Turkish sheath was exchanged for a long 6 Turkish Ansell sheath which was positioned with its [...] of this, a 5 x 40 mm [facility] Zilver self-expanding stent was placed across the [...] sheath was exchanged for a short 6 Turkish sheath. A Vascade closure device was deployed [...] MD Vascular Surgery documented in this encounter [facility] 11-22-2024 Procedure note POA given updated via phone call. Made aware of patient's orders to lay flat until 1325. Daughter in law stated that she will call care facility later to make arrangements for transportation back. [facility] 11-22-2024 Hospital Discharge instructions Mehreen Khanna [...] the office l documented in this encounter [facility] 11-22-2024 Nurse Note Patient arrived on unit. Name and date verified. Attached to monitors. Vital signs stable. [facility] Procedure note OPERATIVE REPORT DATE OF [...] the patient as well as the patient's fguuanlw-rd-hgn Fidel. They have elected to proceed. PROCEDURE [...] technique was used to place a 5 Turkish sheath. The Bentson wire was positioned in [...] catheter and the catheter removed. The 5 Turkish sheath was exchanged for a long 6 Turkish Ansell sheath which was positioned with its [...] sheath was exchanged for a short 6 Turkish sheath. A Vascade closure device was deployed [...] preoperative examination. Kristyn Blankenship MD Vascular Surgery [facility] 11-22-2024 Attending History and physical [...] she notices throbbing in the toe and heat but otherwise it does not bother her much. She ambulates with a walker with pT at her [facility] facility. She is on Eliquis and statin. She is a former smoker. PastMedical History: Past Medical History: Diagnosis Date Arrhythmia PAF Asthma Chronic kidney disease COPD (chronic obstructive pulmonary disease) ([facility]) DVT (deep venous thrombosis) ([facility]) Essential hypertension 03/07/2020 GERD (gastroesophageal reflux disease) Hiatal hernia IBS (irritable bowel syndrome) Pure hypercholesterolemia 03/07/2020 PVD (peripheral vascular disease) ([facility]) Stroke ([facility]) Past Surgical History: Past Surgical History: Procedure Laterality Date ANKLE SURGERY ARM SURGERY (HISTORICAL) Right COLONOSCOPY ESOPHAGEAL DILATION EYE SURGERY Right 07/05/2024 [facility] EYE SURGERY Right 06/2024 x2, [facility] FINGER AMPUTATION Right 03/07/2020 right index [...] min Stress: Patient Unable To Answer (08/03/2024) [place] [employer] of Occupational Health - Occupational Stress Questionnaire Feeling of Stress : Patient unable to answer Social Connections: Unknown (08/03/2024) Social Connection and Isolation Panel [NHANES] Frequency of Communication with Friends and Family: Patient unable to answer Frequency of Social Gatherings with Friends and Family: Patient unable to answer Attends Anglican Services: Patient unable to answer Active Member of Clubs or Organizations: Patient unable to answer Attends Club or Organization Meetings: Never Marital Status: Patient unable to answer Recent Concern: Social Connections - Moderately Isolated (06/20/2024) Received from [facility] Social Connection and Isolation Panel [NHANES] Frequency of Communication with Friends and Family: More than three times a week Frequency of Social Gatherings with Friends and Family: Once a week Attends Anglican Services: More than 4 times per year [...] 32.1 (A) 05/09/2024 No results found for: VLDL Physical Exam Vitals reviewed. HENT: Head: Normocephalic [...] like me to discuss this with her ajxqmpny-gs-uwm Fidel Castillo. She states she is her POA. I have contacted Fidel via telephone and explained the above and the recommendations for angiography. She will speak with the patient and call the office to let us know how they would like to proceed. Kristyn Blankenship MD Vascular Surgery [employer] Work Phone: 11-22-2024 Note [facility] 11-22-2024 History and physical note H&P reviewed. [...] she notices throbbing in the toe and heat but otherwise it does not bother her much. She ambulates with a walker with pT at her prison facility. She is on Eliquis and statin. She is a former smoker. PastMedical History: Past Medical History: Diagnosis Date Arrhythmia PAF Asthma Chronic kidney disease COPD (chronic obstructive pulmonary disease) ([facility]) DVT (deep venous thrombosis) ([facility]) Essential hypertension 03/07/2020 GERD (gastroesophageal reflux disease) Hiatal hernia IBS (irritable bowel syndrome) Pure hypercholesterolemia 03/07/2020 PVD (peripheral vascular disease) ([facility]) Stroke ([facility]) Past Surgical History: Past Surgical History: Procedure Laterality Date ANKLE SURGERY ARM SURGERY (HISTORICAL) Right COLONOSCOPY ESOPHAGEAL DILATION EYE SURGERY Right 07/05/2024 [facility] EYE SURGERY Right 06/2024 x2, [facility] FINGER AMPUTATION Right 03/07/2020 right index [...] mg) by mouth daily. 08/09/24 09/22/24 K[facility], lisinopril 40 MG tablet Take 40 mg [...] min Stress: Patient Unable To Answer (08/03/2024) [place] [employer] of Occupational Health - Occupational Stress Questionnaire Feeling of Stress : Patient unable to answer Social Connections: Unknown (08/03/2024) Social Connection and Isolation Panel [NHANES] Frequency of Communication with Friends and Family: Patient unable to answer Frequency of Social Gatherings with Friends and Family: Patient unable to answer Attends Anglican Services: Patient unable to answer Active Member of Clubs or Organizations: Patient unable to answer Attends Club or Organization Meetings: Never Marital Status: Patient unable to answer Recent Concern: Social Connections - Moderately Isolated (06/20/2024) Received from [facility] Social Connection and Isolation Panel [NHANES] Frequency of Communication with Friends and Family: More than three times a week Frequency of Social Gatherings with Friends and Family: Once a week Attends Anglican Services: More than 4 times per year [...] 32.1 (A) 05/09/2024 No results found for: VLDL Physical Exam Vitals reviewed. HENT: Head: Normocephalic [...] like me to discuss this with her erztkonj-nb-nmu Fidel Castillo. She states she is her POA. I have contacted Fidel via telephone and explained the above and the recommendations for angiography. She will speak with the patient and call the office to let us know how they would like to proceed. Kristyn Blankenship MD Vascular Surgery documented in this encounter [facility] 11-09-2024 Note Tried to reach patie nt to discuss clinical research monitor her procedure. Mailbox full & unable to [...] she notices throbbing in the toe and heat but otherwise it does not bother her much. She ambulates with a walker with pT at her prison facility. She is on Eliquis and statin. She is a former smoker. PastMedical History: Past Medical History: Diagnosis Date Arrhythmia PAF Asthma Chronic kidney disease COPD (chronic obstructive pulmonary disease) ([facility]) DVT (deep venous thrombosis) ([facility]) Essential hypertension 03/07/2020 GERD (gastroesophageal reflux disease) Hiatal hernia IBS (irritable bowel syndrome) Pure hypercholesterolemia 03/07/2020 PVD (peripheral vascular disease) ([facility]) Stroke ([facility]) Past Surgical History: Past Surgical History: Procedure Laterality Date ANKLE SURGERY ARM SURGERY (HISTORICAL) Right COLONOSCOPY ESOPHAGEAL DILATION EYE SURGERY Right 07/05/2024 [facility] EYE SURGERY Right 06/2024 , [facility] FINGER AMPUTATION Right 03/07/2020 right index [...] Resource Strain: Low Risk (06/20/2024) Received from [facility] Overall Financial Resource Strain [...] min Stress: Patient Unable To Answer (08/03/2024) [place] Rodessa of Occupational Health - Occupational Stress Questionnaire Feeling of Stress : Patient unable to answer Social Connections: Unknown (08/03/2024) Social Connection and Isolation Panel [NHANES] Frequency of Communication with Friends and Family: Patient unable to answer Frequency of Social Gatherings with Friends and Family: Patient unable to answer Attends Anglican Services: Patient unable to answer Active Member of Clubs or Organizations: Patient unable to answer Attends Club or Organization Meetings: Never Marital Status: Patient unable to answer Recent Concern: Social Connections - Moderately Isolated (06/20/2024) Received from [facility] Social Connection and Isolation Panel [NHANES] Frequency of Communication with Friends and Family: More than three times a week Frequency of Social Gatherings with Friends and Family: Once a week Attends Anglican Services: More than 4 times per year [...] 32.1 (A) 05/09/2024 No results found for: VLDL Physical Exam Vitals reviewed. HENT: Head: Normocephalic [...] like me to discuss this with her tlgqrhqn-ja-fee Fidel Castillo. She states she is her POA. I have contacted Fidel via telephone and explained the above and the recommendations for angiography. She will speak with the patient and call the office to let us know how they would like to proceed. Kristyn Blankenship MD Vascular Surgery documented in this encounter [facility] 11-05-2024 Note [facility] Note Date of Procedure 10/01/2024. Principal Electrical Engineer Information CATALINA Donovan CDOS 10/01/2024 10:58 AM [...] documented in this encounter [facility] 10-01-2024 Note HNO ID: [id number] Author: SAVANA LOPEZ MD Service: ? Author [...] agree with al (more content not included)... [facility] 10-01-2024 History of Present illness Narrative Can [...] to HTN (SBP 199/99 at presentation to [facility]) and anticoagulation that led to angle closure [...] documented in this encounter 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 09-05-2024 Note HNO ID: [id number] Author: SAVANA LOPEZ MD Service: ? 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 [facility] [place] 08-22-2024 History of Present illness Narrative [facility] Vascular [place] Vascular Surgery Follow-up Office Visit CHIEF COMPLAINT: Chief Complaint Patient presents with Follow-up 3 month follow up, PAD check [facility] HISTORY OF PRESENT ILLNESS: Mel [...] is ambulating with walker with PT at [facility] without difficulty. She denies any rest pain at night or any nonhealing wounds. Currently taking the following medications for vascular risk factor modification: Antiplatelet/Anticoagulant: Eliquis Statin: atorvastatin Smoking Status: not currently smoking Past Medical History: Past Medical History: Diagnosis Date Arrhythmia PAF Asthma Chronic kidney disease COPD (chronic obstructive pulmonary disease) ([facility]) DVT (deep venous thrombosis) ([facility]) Essential hypertension 03/07/2020 GERD (gastroesophageal reflux disease) Hiatal hernia IBS (irritable bowel syndrome) Pure hypercholesterolemia 03/07/2020 PVD (peripheral vascular disease) ([facility]) Stroke ([facility]) Past Surgical History: Past Surgical History: Procedure Laterality Date ANKLE SURGERY ARM SURGERY (HISTORICAL) Right COLONOSCOPY ESOPHAGEAL DILATION EYE SURGERY Right 07/05/2024 [facility] EYE SURGERY Right 06/2024 x2, [facility] FINGER AMPUTATION Right 03/07/2020 right index [...] Resource Strain: Low Risk (06/20/2024) Received from [facility] Overall Financial Resource Strain [...] min Stress: Patient Unable To Answer (08/03/2024) [place] Rod[employer] of Occupational Health - Occupational Stress Questionnaire Feeling of Stress : Patient unable to answer Social Connections: Unknown (08/03/2024) Social Connection and Isolation Panel [NHANES] Frequency of Communication with Friends and Family: Patient unable to answer Frequency of Social Gatherings with Friends and Family: Patient unable to answer Attends Anglican Services: Patient unable to answer Active Member of Clubs or Organizations: Patient unable to answer Attends Club or Organization Meetings: Never Marital Status: Patient unable to answer Recent Concern: Social Connections - Moderately Isolated (06/20/2024) Received from [facility] Social Connection and Isolation Panel [NHANES] Frequency of Communication with Friends and Family: More than three times a week Frequency of Social Gatherings with Friends and Family: Once a week Attends Anglican Services: More than 4 times per year [...] 32.1 (A) 05/09/2024 No results found for: VLDL PHYSICAL EXAM: Vitals: 08/22/24 1032 BP: 104/62 [...] Follow-Up: prn . documented in this encounter [facility] 08-16-2024 Note [facility] 08-16-2024 Nurse Note Patient picked up for transfer to [facility] by stretcher. Report already called to GENET Garcia. [facility] 08-16-2024 Nurse Note Patient picked up for transfer to [facility] by stretcher. Report already called to GENET Garcia. Telephone report called to GENET Garcia at [facility]. Bedside swallow completed. Pt passed and tolerated well tolerated well. documented in this encounter [facility] 08-16-2024 Nurse Note Telephone report called to GENET Garcia at [facility]. [facility] 08-16-2024 Note Formatting of this n ote might be different from the original. Arranged transport to [facility] via [employer] with pickup at 2pm. Notified snf of transport time via [employer] message; reviewed time with RN, head gauge unit operator and TCC. Called pt's daughter to review discharge time., plan; she is agreeable. [facility] 08-16-2024 Note Formatting of this n ote might be different from the original. Arranged transport to [facility] via [employer] with pickup at 2pm. Notified snf of transport time via [employer] message; reviewed time with RN, head gauge unit operator and TCC. Called pt's daughter to review discharge time., plan; she is agreeable. [facility] 08-16-2024 Miscellaneous Notes Arranged transport to [facility] via [employer] with pickup at 2pm. Notified snf of transport time via [employer] message; reviewed time with RN, head gauge unit operator and TCC. Called pt's daughter to review discharge time., plan; she is agreeable. Patient Choice Patient Name: MEL POP Date of : 1940 All Providers Sent Referral Name: [facility] Phone: [phone] Address: [address] [place], [place] [address] [address] Name: [facility] Phone: [phone] Address: [address] [place] [address] Name: [facility] Phone: [phone] Address: [place] [address] MAR & Discharge med list transmitted to [facility] via [facility] per TCC request. Pt has auth to go to [facility]. Dttiffanie Stokes,[phone] was called, message left @DC. Care Team was messaged...place DC orders/MAR. Dar YOUNG, RN complete HECTOR. SUPERVISOR FRONT will arrange transport for this am. ADOPTION COUNSELOR tasked to sebd DC orders/MAR. Problem: Knowledge [...] met Outcome: Progressing [id number] Progressing Pt has Been accepted to [facility]. Need PT/OT to see so auth to be started. Therapy to see today was sent. Called and spoke with Dtbraxton Verdin. [facility] tasked w update. CM to follow. Problem: [...] Outcome: Progressing Referral placed to SNF- [facility] via [facility] per [facility] request. Await review and response regarding ability to accept. TCC notified. Electronically signed by Christine Morataya [facility], 08-13-2024 at 3:00 PM Called dgt to talk about dc planning. Dgt continues to tour SNFs this evening, since she was sick this weekend. Provided me with two more SNF choices. [facility]. Tasked [facility] to create these referrals. CM to [...] Dgt touring facilities over the weekend. [place]. [facility] pending acceptance, updates sent via [employer]. Problem: Knowledge Deficit Goal: Patient/family/caregiver demonstrates understanding [...] Nutritional Intake Outcome: Progressing Referral placed to [facility] via [facility] per TCC request. Await review and response regarding ability to accept. TCC notified. Electronically signed by Christine Morataya [facility], 08-10-2024 at 9:23AM Pt was to be DC to [facility]. Found out pt and dtr didn't want to return to [facility]. SNF was made aware. On adm spoke with Dtr Fidel, ok to return. Called Dtr this am, after speaking with pt and things that happened and didn't happen. Fidel requesting a referral to be made to [facility]. [facility] tasked to send. A SNF list was emailed to Fidel. [email or web address]. She will tour facilities over weekend. CM [...] and med list sent via Careport to [facility] per TCC request. Auth received. Patient with active dc orders. Transportation arranged through [facility] with estimated pickling machine operator time of 1929. left with daughter Fidel along with 3N phone number to call with questions. Bedside RN aware. Facility updated. [facility] prop making supervisor sent orders to [facility]. continuum of care manager was asked to assist with setting up transport back to [facility] this evening. legal administrative secretary had already done so, but this group fitness manager called daughter to inform her of discharge and transport set up. Daughter did not wish patient to return to the SNF. Assistant Chief Train Dispatcher told her that patient is medically stable for dc and that she should continue the discussion with the social insurance adviser and nurse administrator at The snf, and also get options from [employer]. Coordinator was to message the snf about return this evening via [employer]. Updated PT/OT notes placed to SNF [facility] via [employer] per TCC request. Await review and response regarding ability to accept. TCC notified. Electronically signed by [facility] Aracelis Gardiner Patient is medically ready for dc. PT/OT both continuing to recommend SNF. [facility] group fitness manager asked to start auth. Plan to dc back to [facility] pending auth I was off Yesterday, PT note was in from Tuesday. Therapy to see today was sent out to OT Tuesday to see yesterday. Pt was not seen. I did sent a therapy to see today to PT/OT so an auth can be started. Pt will Be Dc'd to [facility]. CM to follow. Problem: Knowledge Deficit [...] aspiration 2/2 vomiting. Discharge Plan: Return to [facility]. Therapy eval needed for precert. TCC [...] Plan is for pt to return to [facility]. Auth and HECTOR needed prior to DC. CM to follow. Per attending pt ready for DC. Pt will return to [facility]. Pt needs PT/OT to start auth [...] referral placed to [facility] via [facility] per TCC request. Await review and response regarding ability to accept. TCC notified. Pt to ED w N/V/Diarrhea, was Dx w Aspiration pneumonitis. Started on IV ATB's. Called pt's Dtr, Fidel, . Pt is from [facility]. Plan on returning. [facility] tasked to send a return referral. [...] Improved Outcome: Progressing documented in this encounter [facility] 08-16-2024 Note Formatting of this n ote might be different from the original. Patient Choice Patient Name: MEL POP Date of : 1940 All Providers Sent Referral Name: [facility] Phone: [phone] Address: [address] [place] [address] Name: [facility] ([facility]) Phone: [phone] Address: [address] [place] [address] Name: [facility] Phone: [phone] Address: [address] [place] [address] [facility] 08-16-2024 Note Formatting of this n ote might be different from the original. Patient Choice Patient Name: MEL POP Date of : 1940 All Providers Sent Referral Name: [facility] Phone: [phone] Address: [address] [place] [address] Name: [facility] Phone: [phone] Address: [address] [place] [address] Name: [facility] Phone: [phone] Address: [address] [place] [address] [facility] 08-16-2024 Note Formatting of this n ote might be different from the original. MAR & Discharge med list transmitted to [facility] via [facility] per TCC request. [facility] 08-16-2024 Note Formatting of this n ote might be different from the original. MAR & Discharge med list transmitted to [facility] via [facility] per TCC request. [facility] 08-16-2024 Note Formatting of this n ote might be different from the original. Pt has auth to go to [facility]. Dtr Fidel,[phone] was called, message left @DC. Care Team was messaged...place DC orders/MAR. Dar YOUNG RN complete HECTOR. SUPERVISOR FRONT will arrange transport for this am. [facility] tasked to sebd DC orders/MAR. [facility] 08-16-2024 Note Formatting of this n ote might be different from the original. Pt has auth to go to [facility]. Dtr Fidel,[phone] was called, message left @DC. Care Team was messaged...place DC orders/MAR. Dar YOUNG, RN complete HECTOR. SUPERVISOR FRONT will arrange transport for this am. ADOPTION COUNSELOR tasked to sebd DC orders/MAR. [facility] 08-16-2024 History of Present illness Narrative Hospitalist Progress Note 08/16/2024 Subjective: Admit Date: 08/03/2024 PCP: Jared Evans MD Room#: [id number] A BRIEF HOSPITAL COURSE: Mel is a 83 y.o. female with past medical history below who presents with chief complaint listed above.Patient is an 83 y/o female who presented to [place] [facility] early this AM from local [place] for vomiting and diarrhea. Patient reported she vomited a large amount early this AM. She didn't realized she [...] pulmonary disease) (HCC) DVT (deep venous thrombosis) ([facility]) Essential hypertension 03/07/2020 GERD (gastroesophageal reflux disease) Hiatal hernia IBS (irritable bowel syndrome) Pure hypercholesterolemia 03/07/2020 PVD (peripheral vascular disease) ([facility]) Stroke ([facility]) LABS: CBC: No results for input(s): WBC, RBC, HGB, HCT, MCV, RDW, PLT in the last 72 hours. BMP: No results for input(s): NA, K, CL, CO2, BUN, CREATININE, GLUCOSE, CALCIUM, ANIONGAP in the last 72 hours. LIVER PROFILE: No results for input(s): AST, ALT, BILITOT, ALKPHOS, PROT in the last 72 hours. No lab exists for component: LABALBU PT/INR: No results for input(s): PROTIME, INR in the last 72 hours. CARDIAC ENZYMES: No results for input(s): TROPONINI in the last 72 hours. Procalcitonin: No results found for: PROCAL COVID-19 PCR: No results for input(s): COVID19 in the last 72 hours. Objective: Vitals: BP 135/66 (BP Location: Left arm, Patient Position: Sitting) Pulse 85 Temp 36.4 C (97.6 F) (Temporal) Resp 18 Ht 5' 3.78 (1.62 m) Wt 165 lb 5.5 oz [...] Hospitalist Medicine [facility] Hospitalist Progress Note 08/15/2024 Subjective: Admit Date: 08/03/2024 PCP: Jared Evans MD Room#: [id number] A BRIEF HOSPITAL COURSE: Mel is a 83 y.o. female with past medical history below who presents with chief complaint listed above.Patient is an 83 y/o female who presented to [facility] early this AM from local [place] for vomiting and diarrhea. Patient reported she vomited a large amount early this AM. She didn't realized she [...] pulmonary disease) (HCC) DVT (deep venous thrombosis) ([facility]) Essential hypertension 03/07/2020 GERD (gastroesophageal reflux disease) Hiatal hernia IBS (irritable bowel syndrome) Pure hypercholesterolemia 03/07/2020 PVD (peripheral vascular disease) ([facility]) Stroke ([facility]) LABS: CBC: No results for input(s): WBC, RBC, HGB, HCT, MCV, RDW, PLT in the last 72 hours. BMP: No results for input(s): NA, K, CL, CO2, BUN, CREATININE, GLUCOSE, CALCIUM, ANIONGAP in the last 72 hours. LIVER PROFILE: No results for input(s): AST, ALT, BILITOT, ALKPHOS, PROT in the last 72 hours. No lab exists for component: LABALBU PT/INR: No results for input(s): PROTIME, INR in the last 72 hours. CARDIAC ENZYMES: No results for input(s): TROPONINI in the last 72 hours. Procalcitonin: No results found for: PROCAL COVID-19 PCR: No results for input(s): COVID19 in the last 72 hours. Objective: Vitals: BP 152/94 (BP Location: Left arm, Patient Position: Sitting) Pulse 87 Temp 36.5 C (97.7 F) (Temporal) Resp 16 Ht 5' 3.78 (1.62 m) Wt 165 lb 5.5 oz [...] Hospitalist Medicine [facility] Images from the original note were not included. PHYSICAL THERAPY [facility] Treatment Note Name/MRN: Mel Pop ([id number]) Date of : 1940 Age: 83 y.o. 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 [...] Goal: keep getting up, get back to [facility]. Encounter Problems Encounter Problems (Active) Balance Patient [...] Treatment Minutes: 19 Minutes (Gait) Oanh Grimes EDUCATIONAL COORDINATOR Cosigned by Samantha Lora, PT at 08/14/2024 3:14 PM EST Images from the original note were not included. OCCUPATIONAL THERAPY [facility] Treatment Note Name/MRN: Mel Pop ([id number]) Date of : 1940 Age: 83 y.o. [facility] A Discharge Recommendation: Custodial Facility Prior Level [...] with 24/7 assist, home health OT and director of operations home health. Pt. ( Who is totally BLIND), Would due better receiving therapy in her home due to familiar environment. If she can not get 24/7 assist at home then OT recommend SNF at [place]. Subjective Pt. Remains in her recliner eating [...] Date: 08/03/2024 PCP: Jared Evans MD Room#: [id number] A BRIEF HOSPITAL COURSE: Mel is a 83 y.o. female with past medical history below who presents with chief complaint listed above.Patient is an 83 y/o female who presented to [facility] early this AM from local [place] for vomiting and diarrhea. Patient reported she vomited a large amount early this AM. She didn't realized she [...] pulmonary disease) (HCC) DVT (deep venous thrombosis) ([facility]) Essential hypertension 03/07/2020 GERD (gastroesophageal reflux disease) Hiatal hernia IBS (irritable bowel syndrome) Pure hypercholesterolemia 03/07/2020 PVD (peripheral vascular disease) ([facility]) Stroke ([facility]) LABS: CBC: No results for input(s): WBC, RBC, HGB, HCT, MCV, RDW, PLT in the last 72 hours. BMP: No results for input(s): NA, K, CL, CO2, BUN, CREATININE, GLUCOSE, CALCIUM, ANIONGAP in the last 72 hours. LIVER PROFILE: No results for input(s): AST, ALT, BILITOT, ALKPHOS, PROT in the last 72 hours. No lab exists for component: LABALBU PT/INR: No results for input(s): PROTIME, INR in the last 72 hours. CARDIAC ENZYMES: No results for input(s): TROPONINI in the last 72 hours. Procalcitonin: No results found for: PROCAL COVID-19 PCR: No results for input(s): COVID19 in the last 72 hours. Objective: Vitals: BP 137/72 (BP Location: Left arm, Patient Position: Lying) Pulse 74 Temp 36.6 C (97.9 F) (Temporal) Resp 16 Ht 5' 3.78 (1.62 m) Wt 165 lb 5.5 oz [...] Hospitalist Medicine [facility] Hospitalist Progress Note 08/13/2024 Subjective: Admit Date: 08/03/2024 PCP: Jared Evans MD Room#: [id number] A BRIEF HOSPITAL COURSE: Mel is a 83 y.o. female with past medical history below who presents with chief complaint listed above.Patient is an 83 y/o female who presented to [facility] early this AM from local [place] for vomiting and diarrhea. Patient reported she vomited a large amount early this AM. She didn't realized she [...] Pure hypercholesterolemia 03/07/2020 PVD (peripheral vascular disease) ([facility]) Stroke (HCC) LABS: CBC: No results for input(s): WBC, RBC, HGB, HCT, MCV, RDW, PLT in the last 72 hours. BMP: No results for input(s): NA, K, CL, CO2, BUN, CREATININE, GLUCOSE, CALCIUM, ANIONGAP in the last 72 hours. LIVER PROFILE: No results for input(s): AST, ALT, BILITOT, ALKPHOS, PROT in the last 72 hours. No lab exists for component: LABALBU PT/INR: No results for input(s): PROTIME, INR in the last 72 hours. CARDIAC ENZYMES: No results for input(s): TROPONINI in the last 72 hours. Procalcitonin: No results found for: PROCAL COVID-19 PCR: No results for input(s): COVID19 in the last 72 hours. Objective: Vitals: BP 153/86 (BP Location: Left arm, Patient Position: Lying) Pulse 95 Temp 36.4 C (97.5 F) (Temporal) Resp 16 Ht 5' 3.78 (1.62 m) Wt 165 lb 5.5 oz [...] Kael Hayward DO Division of Hospitalist Medicine [facility] Nutrition Assessment Type and Reason for [...] No significant fluid accumulation (per flow sheets) Consumer Product Advisor Strength: Not Performed Nutrition Assessment: 83 y.o. [...] On: Kcal/kg Weight Used for Energy Requirements: [place] Weight for Energy Calculation (kg): 54 kg Total Energy Requirements (kcals/day): 8418-4628 Weight Used for Protein Requirements: [place] Weight in Kg Used for Protein Requirements: [...] Ordered Anthropometric Measures: Height: 162 cm (5' 3.78) Current Body Weight: 74.8 kg (165 lb) (08/03) Weight Source: Bed Scale Usual Body Weight: 66.7 kg (147 lb) (per Epic 05/14; 160# 07/05) % Weight Change (Calculated): 12.2 [place] Body Weight (lbs) (Calculated): 119 lbs [place] Body Weight (Kg) (Calculated): 54 kg BMI [...] soon to determine Janki Fields RD Contact: *[phone] Hospitalist Progress Note 08/12/2024 Subjective: Admit Date: 08/03/2024 PCP: Jared Evans MD Room#: [id number] A BRIEF HOSPITAL COURSE: Mel is a 83 y.o. female with past medical history below who presents with chief complaint listed above.Patient is an 83 y/o female who presented to [place] [facility] early this AM from local [place] for vomiting and diarrhea. Patient reported she vomited a large amount early this AM. She didn't realized she [...] (HCC) LABS: CBC: No results for input(s): WBC, RBC, HGB, HCT, MCV, RDW, PLT in the last 72 hours. BMP: No results for input(s): NA, K, CL, CO2, BUN, CREATININE, GLUCOSE, CALCIUM, ANIONGAP in the last 72 hours. LIVER PROFILE: No results for input(s): AST, ALT, BILITOT, ALKPHOS, PROT in the last 72 hours. No lab exists for component: LABALBU PT/INR: No results for input(s): PROTIME, INR in the last 72 hours. CARDIAC ENZYMES: No results for input(s): TROPONINI in the last 72 hours. Procalcitonin: No results found for: PROCAL COVID-19 PCR: No results for input(s): COVID19 in the last 72 hours. Objective: Vitals: BP 155/98 (BP Location: Left arm, Patient Position: Sitting) Pulse 83 Temp 36.3 C (97.3 F) (Temporal) Resp 18 Ht 5' 3.78 (1.62 m) Wt 165 lb 5.5 oz [...] Hospitalist Medicine [facility] Hospitalist Progress Note 08/11/2024 Subjective: Admit Date: 08/03/2024 PCP: Jared Evans MD Room#: [id number] A BRIEF HOSPITAL COURSE: Mel is a 83 y.o. female with past medical history below who presents with chief complaint listed above.Patient is an 83 y/o female who presented to [place] [facility] early this AM [place] local [place] for [place] and diarrhea. Patient reported she vomited a large amount early this AM. She didn't realized she [...] Pure hypercholesterolemia 03/07/2020 PVD (peripheral vascular disease) ([facility]) Stroke ([facility]) LABS: CBC: No results for input(s): WBC, RBC, HGB, HCT, MCV, RDW, PLT in the last 72 hours. BMP: No results for input(s): NA, K, CL, CO2, BUN, CREATININE, GLUCOSE, CALCIUM, ANIONGAP in the last 72 hours. LIVER PROFILE: No results for input(s): AST, ALT, BILITOT, ALKPHOS, PROT in the last 72 hours. No lab exists for component: LABALBU PT/INR: No results for input(s): PROTIME, INR in the last 72 hours. CARDIAC ENZYMES: No results for input(s): TROPONINI in the last 72 hours. Procalcitonin: No results found for: PROCAL COVID-19 PCR: No results for input(s): COVID19 in the last 72 hours. Objective: Vitals: BP (!) 181/79 (BP Location: Left arm, Patient Position: Lying) Pulse 92 Temp 36.6 C (97.8 F) (Temporal) Resp 16 Ht 5' 3.78 (1.62 m) Wt 165 lb 5.5 oz [...] Hayward DO Division of Hospitalist Medicine [facility] Hospitalist Progress Note 08/10/2024 Subjective: Admit Date: 08/03/2024 PCP: Jared Evans MD Room#: [id number] A BRIEF HOSPITAL COURSE: Mel is a 83 y.o. female with past medical history below who presents with chief complaint listed above.Patient is an 83 y/o female who presented to [facility] early this AM from local [place] for [place] and diarrhea. Patient reported she vomited a large amount early this AM. She didn't realized she [...] Pure hypercholesterolemia 03/07/2020 PVD (peripheral vascular disease) ([facility]) Stroke ([facility]) LABS: CBC: No results for input(s): WBC, RBC, HGB, HCT, MCV, RDW, PLT in the last 72 hours. BMP: No results for input(s): NA, K, CL, CO2, BUN, CREATININE, GLUCOSE, CALCIUM, ANIONGAP in the last 72 hours. LIVER PROFILE: No results for input(s): AST, ALT, BILITOT, ALKPHOS, PROT in the last 72 hours. No lab exists for component: LABALBU PT/INR: No results for input(s): PROTIME, INR in the last 72 hours. CARDIAC ENZYMES: No results for input(s): TROPONINI in the last 72 hours. Procalcitonin: No results found for: PROCAL COVID-19 PCR: No results for input(s): COVID19 in the last 72 hours. Objective: Vitals: BP (!) 176/90 (BP Location: Right arm, Patient Position: Lying) Pulse 74 Temp 36.6 C (97.9 F) (Temporal) Resp 20 Ht 5' 3.78 (1.62 m) Wt 165 lb 5.5 oz [...] Kael Hayward DO Division of Hospitalist Medicine [facility] Hospitalist Progress Note 08/09/2024 Subjective: Admit Date: 08/03/2024 PCP: Jared Evans MD Room#: [id number] A BRIEF HOSPITAL COURSE: Mel is a 83 y.o. female with past medical history below who presents with chief complaint listed above.Patient is an 83 y/o female who presented to [facility] early this AM from local [place] for vomiting and diarrhea. Patient reported she vomited a large amount early this AM. She didn't realized she [...] pulmonary disease) (HCC) DVT (deep venous thrombosis) ([facility]) Essential hypertension 03/07/2020 GERD (gastroesophageal reflux disease) Hiatal hernia IBS (irritable bowel syndrome) Pure hypercholesterolemia 03/07/2020 PVD (peripheral vascular disease) ([facility]) Stroke (HCC) LABS: CBC: No results for input(s): WBC, RBC, HGB, HCT, MCV, RDW, PLT in the last 72 hours. BMP: No results for input(s): NA, K, CL, CO2, BUN, CREATININE, GLUCOSE, CALCIUM, ANIONGAP in the last 72 hours. LIVER PROFILE: No results for input(s): AST, ALT, BILITOT, ALKPHOS, PROT in the last 72 hours. No lab exists for component: LABALBU PT/INR: No results for input(s): PROTIME, INR in the last 72 hours. CARDIAC ENZYMES: No results for input(s): TROPONINI in the last 72 hours. Procalcitonin: No results found for: PROCAL COVID-19 PCR: No results for input(s): COVID19 in the last 72 hours. Objective: Vitals: BP (!) 156/104 Pulse 75 Temp 36.7 C (98 F) (Temporal) Resp 16 Ht 5' 3.78 (1.62 m) Wt 165 lb 5.5 oz [...] Hospitalist Medicine [facility] Images from the original note were not included. OCCUPATIONAL THERAPY [facility] Initial Evaluation Name/MRN: Mel Pop ([id number]) Evaluation Date: 08/08/2024 Date of : 1940 Admission Date: 08/03/2024 2:22 AM Age: 83 y.o. [facility]: [facility]/N[facility] A Discharge Recommendation: Custodial Facility Assessment IMPRESSION: [...] Pure hypercholesterolemia 03/07/2020 PVD (peripheral vascular disease) ([facility]) Stroke (HCC) Past Surgical History: Past Surgical History: Procedure Laterality Date ANKLE SURGERY ARM SURGERY (HISTORICAL) Right COLONOSCOPY ESOPHAGEAL DILATION EYE SURGERY 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 HYSTERECTOMY ORTHOPEDIC SURGERY THROMBECTOMY Right 04/06/2024 RLE mechanical thrombectomy (Krzysztof) Admission Diagnosis: Patient Active Problem List Diagnosis Date Noted Aspiration pneumonitis ([facility]/HCC) (HCC) 08/03/2024 Visual disturbance, subjective 07/06/2024 Retinal detachment, right 07/05/2024 Vision loss of right eye 07/05/2024 Acute venous embolism and thrombosis of deep vessels of proximal lower extremity ([facility]) 04/14/2024 Peripheral arterial disease ([facility]) 04/03/2024 Immunodeficiency due to conditions classified elsewhere ([facility]) 07/27/2023 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 ([facility]) 07/27/2023 Bilateral pneumonia 06/16/2022 COVID-19 06/16/2022 Hypothyroidism 06/16/2022 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[facility]) 06/16/2022 Cellulitis 05/18/2022 Nicotine use disorder 05/18/2022 Acute venous embolism and thrombosis of deep vessels of proximal end of right lower extremity ([facility]) 04/19/2024 Atrial fibrillation, unspecified type ([facility]) 04/19/2024 Irritable bowel syndrome with diarrhea 03/07/2020 Microscopic hematuria 03/07/2020 Left retinal detachment 03/07/2020 Hyperglycemia 03/07/2020 Osteopenia of left femoral neck 03/07/2020 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 03/07/2020 Seasonal allergies 03/07/2020 Chronic renal insufficiency, stage III (moderate) ([facility]) 03/07/2020 Major depression, single episode, in complete remission ([facility]) 03/07/2020 Gastroesophageal reflux disease without esophagitis 03/07/2020 Essential hypertension 03/07/2020 Pure hypercholesterolemia 03/07/2020 Overweight 03/07/2020 Psoriasis 03/07/2020 History of cerebrovascular accident 03/07/2020 Atrial fibrillation ([facility]) 03/07/2020 Chronic obstructive pulmonary disease ([facility]) 03/07/2020 Finger osteomyelitis, right ([facility]) 03/06/2020 Medical Precautions: Enhanced Contact Proper PPE [...] Daily Activity Raw Score: 14 ADL Inpatient [facility] G-Code Modifier: CK Plan Pt would benefit [...] to a [facility] Therapy Services Occupational Therapist. Goals and/or treatment plan was established in collaboration with patient/family/other representatives. Shannon Fernandez MS, OTR/L Images from the original note were not included. PHYSICAL THERAPY [facility] Treatment Note Name/MRN: Mel Pop ([id number]) Date of : 1940 Age: 83 y.[facility]. [facility] Discharge Recommendation: Custodial Facility Equipment Needed: (pt uses [facility] EDUCATIONAL COORDINATOR) Prior Level of Function Prior Level of [...] Goal: keep getting up, get back to [facility]. Encounter Problems Encounter Problems (Active) Balance Patient [...] Date: 08/03/2024 PCP: Jared Evans MD Room#: [id number] A BRIEF HOSPITAL COURSE: Mel is a 83 y.o. female with past medical history below who presents with chief complaint listed above.Patient is an 83 y/o female who presented to [facility] early this AM [place]. Patient reported she vomited a large amount early this AM. She didn't realized she [...] kidney disease COPD (chronic obstructive pulmonary disease) ([facility]) DVT (deep venous thrombosis) ([facility]) Essential hypertension 03/07/2020 GERD (gastroesophageal reflux disease) Hiatal hernia IBS (irritable bowel syndrome) Pure hypercholesterolemia 03/07/2020 PVD (peripheral vascular disease) ([facility]) Stroke ([facility]) LABS: CBC: Recent Labs 08/05/24 2343 WBC [...] PROT 5.5* PT/INR: No results for input(s): PROTIME, INR in the last 72 hours. CARDIAC ENZYMES: No results for input(s): TROPONINI in the last 72 hours. Procalcitonin: No results found for: PROCAL COVID-19 PCR: No results for input(s): COVID19 in the last 72 hours. Objective: Vitals: BP 153/83 (BP Location: Left arm, Patient Position: Sitting) Pulse 110 Temp 36.4 C (97.6 F) (Temporal) Resp 16 Ht 5' 3.78 (1.62 m) Wt 165 lb 5.5 oz [...] Hospitalist Medicine [facility] Hospitalist Progress Note 08/07/2024 Subjective: Admit Date: 08/03/2024 PCP: Jared Evans MD Room#: [id number] A BRIEF HOSPITAL COURSE: Mel is a 83 y.o. female with past medical history below who presents with chief complaint listed above.Patient is an 83 y/o female who presented to [facility] early this AM [place]. Patient reported she vomited a large amount early this AM. She didn't realized she [...] Pure hypercholesterolemia 03/07/2020 PVD (peripheral vascular disease) ([facility]) Stroke ([facility]) LABS: CBC: Recent Labs 08/05/24 0358 08/05/24 [...] 5.2* 5.5* PT/INR: No results for input(s): PROTIME, INR in the last 72 hours. CARDIAC ENZYMES: No results for input(s): TROPONINI in the last 72 hours. Procalcitonin: No results found for: PROCAL COVID-19 PCR: No results for input(s): COVID19 in the last 72 hours. Objective: Vitals: BP (!) 171/99 (BP Location: Left arm, Patient Position: Sitting) Pulse 67 Temp 36.4 C (97.5 F) (Temporal) Resp 16 Ht 5' 3.78 (1.62 m) Wt 165 lb 5.5 oz [...] Kael Hayward DO Division of Hospitalist Medicine [facility] Hospitalist Progress Note 08/06/2024 Subjective: Admit Date: 08/03/2024 PCP: Jared Evans MD Room#: [id number] A BRIEF HOSPITAL COURSE: Mel is a 83 y.o. female with past medical history below who presents with chief complaint listed above.Patient is an 83 y/o female who presented to [facility] early this AM [place] for [place]. Patient reported she vomited a large amount early this AM. She didn't realized she [...] kidney disease COPD (chronic obstructive pulmonary disease) ([facility]) DVT (deep venous thrombosis) ([facility]) Essential hypertension 03/07/2020 GERD (gastroesophageal reflux disease) Hiatal hernia IBS (irritable bowel syndrome) Pure hypercholesterolemia 03/07/2020 PVD (peripheral vascular disease) ([facility]) Stroke ([facility]) LABS: CBC: Recent Labs 08/04/24 0447 08/05/24 [...] 5.2* 5.5* PT/INR: No results for input(s): PROTIME, INR in the last 72 hours. CARDIAC ENZYMES: No results for input(s): TROPONINI in the last 72 hours. Procalcitonin: No results found for: PROCAL COVID-19 PCR: No results for input(s): COVID19 in the last 72 hours. Objective: Vitals: BP 123/73 (BP Location: Left arm, Patient Position: Sitting) Pulse 63 Temp 36.2 C (97.1 F) (Temporal) Resp 16 Ht 5' 3.78 (1.62 m) Wt 165 lb 5.5 oz [...] Hospitalist Medicine [facility] Images from the original note were not included. PHYSICAL THERAPY [facility] Initial Evaluation Name/MRN: Mel Pop ([id number]) Evaluation Date: 08/06/2024 Date of : 1940 Admission Date: 08/03/2024 2:22 AM Age: 83 y.o. [facility] Discharge Recommendation: Custodial Facility (pt from SNF at baseline) Equipment Needed: (pt uses FWW EDUCATIONAL COORDINATOR) Assessment IMPRESSION: Pt's Vincent scoring has varied [...] to SNF-level care (pt was receiving PT EDUCATIONAL COORDINATOR) Admitting Diagnosis: aspiration pneumonitis, + Norovirus. S/p [...] kidney disease COPD (chronic obstructive pulmonary disease) ([facility]) DVT (deep venous thrombosis) ([facility]) Essential hypertension 03/07/2020 GERD (gastroesophageal reflux disease) Hiatal hernia IBS (irritable bowel syndrome) Pure hypercholesterolemia 03/07/2020 PVD (peripheral vascular disease) ([facility]) Stroke ([facility]) Past Surgical History: Past Surgical History: Procedure Laterality Date ANKLE SURGERY ARM SURGERY (HISTORICAL) Right COLONOSCOPY ESOPHAGEAL DILATION EYE SURGERY 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 HYSTERECTOMY ORTHOPEDIC SURGERY THROMBECTOMY Right 04/06/2024 RLE mechanical thrombectomy (Krzysztof) Admission Diagnosis: Patient Active Problem List Diagnosis Date Noted Aspiration pneumonitis (CMS/HCC) ([facility]) 08/03/2024 Visual disturbance, subjective 07/06/2024 Retinal detachment, right 07/05/2024 Vision loss of right eye 07/05/2024 Acute venous embolism and thrombosis of deep vessels of proximal lower extremity ([facility]) 04/14/2024 Peripheral arterial disease ([facility]) 04/03/2024 Immunodeficiency due to conditions classified elsewhere ([facility]) 07/27/2023 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 ([facility]) 07/27/2023 Bilateral pneumonia 06/16/2022 COVID-19 06/16/2022 Hypothyroidism 06/16/2022 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[facility]) 06/16/2022 Cellulitis 05/18/2022 Nicotine use disorder 05/18/2022 Acute venous embolism and thrombosis of deep vessels of proximal end of right lower extremity ([facility]) 04/19/2024 Atrial fibrillation, unspecified type ([facility]) 04/19/2024 Irritable bowel syndrome with diarrhea 03/07/2020 Microscopic hematuria 03/07/2020 Left retinal detachment 03/07/2020 Hyperglycemia 03/07/2020 Osteopenia of left femoral neck 03/07/2020 senior care current use of anticoagulant therapy 03/07/2020 Seasonal allergies 03/07/2020 Chronic renal insufficiency, stage III (moderate) ([facility]) 03/07/2020 Major depression, single episode, in complete remission ([facility]) 03/07/2020 Gastroesophageal reflux disease without esophagitis 03/07/2020 Essential hypertension 03/07/2020 Pure hypercholesterolemia 03/07/2020 Overweight 03/07/2020 Psoriasis 03/07/2020 History of cerebrovascular accident 03/07/2020 Atrial fibrillation ([facility]) 03/07/2020 Chronic obstructive pulmonary disease ([facility]) 03/07/2020 Finger osteomyelitis, right ([facility]) 03/06/2020 Medical Precautions: Enhanced Contact Proper PPE donned/doffed in accordance with facility standards. Fall Risk: Nugent Fall Risk Score: 75 (Medium Risk) Nugent Fall Risk Score: 75 (High Risk) Precautions/Restrictions: Other Position/Activity Restriction: IV, vitrectomy OD Family/Caregiver Present: none Overall Cognitive Status: while pt has some confusion b\c loss of vision and new environment, pt functionally WFL Vision: pt has no vision at all currently. 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 Goes to therapy and [...] 20 Quality of gait: step length approx 8--pt requires full verbal cues for gait, PT [...] Raw Score (No Stairs) : 15 [facility] Score: Walked 10 steps or [...] Goal: keep getting up, get back to [facility]. Encounter Problems Encounter Problems (Active) Balance Patient [...] to a [facility] Therapy Services Physical Therapist. Goals and/or treatment plan was established in collaboration with patient/family/other representatives. Hospitalist Progress Note 08/05/2024 Subjective: Admit Date: 08/03/2024 PCP: Jared Evans MD Room#: N5-378/[id number] A BRIEF HOSPITAL COURSE: Mel is a 83 y.o. female with past medical history below who presents with chief complaint listed above.Patient is an 83 y/o female who presented to [facility] early this AM from local [place] for vomiting and diarrhea. Patient reported she vomited a large amount early this AM. She didn't realized she [...] kidney disease COPD (chronic obstructive pulmonary disease) ([facility]) DVT (deep venous thrombosis) ([facility]) Essential hypertension 03/07/2020 GERD (gastroesophageal reflux disease) Hiatal hernia IBS (irritable bowel syndrome) Pure hypercholesterolemia 03/07/2020 PVD (peripheral vascular disease) ([facility]) Stroke ([facility]) LABS: CBC: Recent Labs 08/03/24 0251 08/04/24 [...] 5.2* 5.2* PT/INR: No results for input(s): PROTIME, INR in the last 72 hours. CARDIAC ENZYMES: No results for input(s): TROPONINI in the last 72 hours. Procalcitonin: No results found for: PROCAL COVID-19 PCR: No results for input(s): COVID19 in the last 72 hours. Objective: Vitals: BP 158/74 Pulse 78 Temp 36.2 C (97.1 F) (Temporal) Resp 16 Ht 5' 3.78 (1.62 m) Wt 165 lb 5.5 oz [...] Hospitalist Medicine [facility] Images from the original note were not included. PHYSICAL THERAPY [facility] Name/MRN: Mel Pop ([id number]) Date: 08/05/2024 PT orders received per Vincent activity/mobility score. Patient currently with Vincent activity/mobility score greater than 2. Per therapy services guidelines, will discharge PT orders. Please place regular PT eval/treat orders if deemed appropriate. Padmaja Wilson PT Hospitalist Progress Note 08/04/2024 Subjective: Admit Date: 08/03/2024 PCP: Jared Evans MD Room#: [id number] A BRIEF HOSPITAL COURSE: Mel is a 83 y.o. female with past medical history below who presents with chief complaint listed above.Patient is an 83 y/o female who presented to [facility] early this AM from local [place] for vomiting and diarrhea. Patient reported she vomited a large amount early this AM. She didn't realized she [...] kidney disease COPD (chronic obstructive pulmonary disease) ([facility]) DVT (deep venous thrombosis) ([facility]) Essential hypertension 03/07/2020 GERD (gastroesophageal reflux disease) Hiatal hernia IBS (irritable bowel syndrome) Pure hypercholesterolemia 03/07/2020 PVD (peripheral vascular disease) ([facility]) Stroke ([facility]) LABS: CBC: Recent Labs 08/03/24 02508/04/24 0447 [...] 6.7 5.2* PT/INR: No results for input(s): PROTIME, INR in the last 72 hours. CARDIAC ENZYMES: No results for input(s): TROPONINI in the last 72 hours. Procalcitonin: No results found for: PROCAL COVID-19 PCR: No results for input(s): COVID19 in the last 72 hours. Objective: Vitals: BP 140/83 (BP Location: Left arm, Patient Position: Lying) Pulse 63 Temp 36.8 C (98.3 F) (Temporal) Resp 16 Ht 5' 3.78 (1.62 m) Wt 165 lb 5.5 oz [...] Hospitalist Medicine [facility] documented in this encounter [facility] 08-15-2024 Plan of care note Problem: [...] My discharge needs are met Outcome: Progressing [facility] 08-15-2024 Note Formatting of this n ote might be different from the original. Authorization is pending with [facility]. Ref# [id number] to be DC'd to [facility]. Dtr Fidel Updated. CM to follow. [facility] 08-15-2024 Note Formatting of this n ote might be different from the original. Authorization is pending with [employer]. Ref# [id number] to be DC'd to [facility]. Dtr Fidel Updated. CM to follow. [facility] 08-15-2024 Note Patient progressing toward all goals. [facility] 08-15-2024 Plan of care note Patient progressing toward all goals. [facility] 08-14-2024 Plan of care note Problem: Knowledge [...] needs are met Outcome: Progressing [facility] 08-14-2024 Hospital Discharge instructions Devika Escobar MD [...] detachment Hyperglycemia Osteopenia of left femoral neck 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 Seasonal allergies [...] (97.1 F) (Temporal) Resp 16 Ht 5' 3.78 (1.62 m) Wt 165 lb 5.5 oz [...] assistance Toileting Total assistance Feeding Minimal assistance Scratch Finisher Minimal assistance Med Delivery yes Wound Care [...] Date: 08/03/2024 Discharging to Facility/ Agency Name: [facility] Address: [address] [place] [address] Fax: Dialysis Facility (if applicable) Name: Address: Dialysis Schedule: Phone: Fax: Synchro Assembler/Property Portfolio Officer signature: ICIAN SECTION Name: Mel Pop Prognosis: good Condition at Discharge: stable Rehab Potential (if transferring to Rehab): good Recommended Labs or Other Treatments After Discharge: none The individual is being admitted to a nursing facility directly from an [facility] or a unit of a [place] [facility] that is not operated by or [...] H&P PHYSICIAN SIGNATURE: documented in this encounter [facility] 08-14-2024 Note Formatting of this n ote might be different from the original. Pt has Been accepted to [facility]. Need PT/OT to see so auth to be started. Therapy to see today was sent. Called and spoke with Dtbraxton Verdin updates. SNF tasked w update. CM to follow. [facility] 08-14-2024 Note Formatting of this n ote might be different from the original. Pt has Been accepted to [facility]. Need PT/OT to see so auth to be started. Therapy to see today was sent. Called and spoke with braxton Cardozo. SNF tasked w update. CM to follow. [facility] 08-13-2024 Plan of care note Problem: Knowledge [...] needs are met Outcome: Progressing [facility] 08-13-2024 Note Formatting of this n ote might be different from the original. Referral placed to [facility] via Careport per TCC request. Await review and response regarding ability to accept. TCC notified. Electronically signed by Christine Morataya [facility], 08-13-2024 at 3:00 PM [facility] 08-13-2024 Note Formatting of this n ote might be different from the original. Referral placed to SNF- [facility] via Careport per TCC request. Await review and response regarding ability to accept. TCC notified. Electronically signed by Christine Morataya [facility], 08-13-2024 at 3:00 PM [facility] 08-13-2024 Note Referral placed to [facility] via Careport per TCC request. Await review and response regarding ability to accept. TCC notified. Electronically signed by Christine Morataya [facility], 08-13-2024 at 3:00 PM [facility] 08-13-2024 Note Formatting of this n ote might be different from the original. Called dgt to talk about dc planning. Dgt continues to tour SNFs this evening, since she was sick this weekend. Provided me with two more SNF choices. [facility]. Tasked [facility] to create these referrals. CM to follow. [facility] 08-13-2024 Note Formatting of this n ote might be different from the original. Called dgt to talk about dc planning. Dgt continues to tour SNFs this evening, since she was sick this weekend. Provided me with two more SNF choices. [facility] Tasked ADOPTION COUNSELOR to create these referrals. CM to follow. [facility] 08-13-2024 Plan of care note Problem: Knowledge [...] needs are met Outcome: Progressing [facility] 08-12-2024 Note Problem: Knowledge D eficit Goal: Patient/family/caregiver demonstrates understanding of disease process, treatment plan, medications, and discharge instructions Outcome: Progressing [facility] 08-12-2024 Plan of care note Problem: Knowledge Deficit Goal: Patient/family/caregiver demonstrates understanding of disease process, treatment plan, medications, and discharge instructions Outcome: Progressing [facility] 08-12-2024 Plan of care note Problem: Knowledge [...] My discharge needs are met Outcome: Progressing [facility] [employer] 08-11-2024 Plan of care note Problem: Knowledge [...] My discharge needs are met Outcome: Progressing [facility] 08-11-2024 Note Formatting of this n ote might be different from the original. CM noted DC orders in place, Dgt touring facilities over the weekend. Moira. [facility] pending acceptance, updates sent via careport. [facility] [employer] 08-11-2024 Note Formatting of this n ote might be different from the original. CM noted DC orders in place, Dgt touring facilities over the weekend. Moira. [facility] pending acceptance, updates sent via careport. [facility] 08-11-2024 Plan of care note Problem: Knowledge [...] Interventions Goal: Assess Nutritional Intake Outcome: Progressing [facility] 08-10-2024 Note Formatting of this n ote might be different from the original. Referral placed to [facility] via Careport per TCC request. Await review and response regarding ability to accept. TCC notified. Electronically signed by Christine Morataya [facility], 08-10-2024 at 9:23AM [facility] 08-10-2024 Note Formatting of this n ote might be different from the original. Referral placed to [facility] via Careport per TCC request. Await review and response regarding ability to accept. TCC notified. Electronically signed by Christine Morataya CMA, 08-10-2024 at 9:23AM [facility] 08-10-2024 Note Referral placed to [facility] via Careport per TCC request. Await review and response regarding ability to accept. TCC notified. Electronically signed by Christine Morataya [facility], 08-10-2024 at 9:23AM [facility] 08-10-2024 Note Formatting of this n ote might be different from the original. Pt was to be DC to [facility]. Found out pt and dtr didn't want to return to [facility]. SNF was made aware. On adm spoke with Dtr Fidel, ok to return. Called Dtr this am, after speaking with pt and things that happened and didn't happen. Fidel requesting a referral to be made to [facility]. ADOPTION COUNSELOR tasked to send. A SNF list was emailed to [email or web address]. She will tour facilities over weekend. CM to follow. [facility] [employer] 08-10-2024 Note Formatting of this n ote might be different from the original. Pt was to be DC to [facility]. Found out pt and dtr didn't want to return to [facility]. SNF was made aware. On adm spoke with Dtr Fidel, ok to return. Called Dtr this am, after speaking with pt and things that happened and didn't happen. Fidel requesting a referral to be made to [facility]. [facility] tasked to send. A SNF list was emailed to [email or web address]. She will tour facilities over weekend. CM to follow. [facility] [employer] 08-10-2024 Plan of care note Problem: Knowledge [...] Interventions Goal: Assess Nutritional Intake Outcome: Progressing [facility] 08-09-2024 Note Formatting of this n ote might be different from the original. Discharge summary and med list sent via Careport to [facility] per TCC request. [facility] 08-09-2024 Note Formatting of this n ote might be different from the original. Discharge summary and med list sent via Careport to [facility] per [facility] request. [facility] 08-09-2024 Note Discharge summary an d med list sent via Careport to [facility] per TCC request. [facility] 08-09-2024 Note Formatting of this n ote might be different from the original. Auth received. Patient with active dc orders. Transportation arranged through [employer] with estimated pickling machine operator time of 1930. VM left with daughter Fidel along with 3N phone number to call with questions. Bedside RN aware. Facility updated. [facility] prop making supervisor sent orders to [facility]. [facility] 08-09-2024 Note Formatting of this n ote might be different from the original. Auth received. Patient with active dc orders. Transportation arranged through [employer] with estimated pickling machine operator time of 1930. VM left with milady Stokes along with 3N phone number to call with questions. Bedside RN aware. Facility updated. [facility] prop making supervisor sent orders to [facility]. [facility] 08-09-2024 Note Formatting of this n ote might be different from the original. continuum of care manager was asked to assist with setting up transport back to [facility] this evening. legal administrative secretary had already done so, but this group fitness manager called daughter to inform her of discharge and transport set up. Daughter did not wish patient to return to the SNF. Assistant Chief Train Dispatcher told her that patient is medically stable for dc and that she should continue the discussion with the social insurance adviser and nurse administrator at The snf, and also get options from [employer]. Coordinator was to message the snf about return this evening via CarePort. [facility] 08-09-2024 Note Formatting of this n ote might be different from the original. continuum of care manager was asked to assist with setting up transport back to [facility] this evening. legal administrative secretary had already done so, but this group fitness manager called daughter to inform her of discharge and transport set up. Daughter did not wish patient to return to the SNF. Assistant Chief Train Dispatcher told her that patient is medically stable for dc and that she should continue the discussion with the social insurance adviser and nurse administrator at The snf, and also get options from [employer]. Coordinator was to message the snf about return this evening via [facility]Port. [facility] 08-09-2024 Note [facility] 08-09-2024 Hospital course Narrative Hospitalist Discharge Summary [...] an 83 y/o female who presented to [facility] early this AM from local [place] for vomiting and diarrhea. Patient reported she vomited a large amount early this AM. She didn't realized she [...] (98 F) (Temporal) Resp 16 Ht 5' 3.78 (1.62 m) Wt 165 lb 5.5 oz (75 kg) LMP (LMP Unknown) SpO2 96% BMI 28.58 kg/m Pulse Ox: SpO2 Av % Min: 94 % Max: 96 % Supplemental O2: See daily progress note for PE LABS: No results for input(s): NA, K, CL, CO2, BUN, CREATININE, GLUCOSE, CALCIUM in the last 72 hours. No results for input(s): WBC, RBC, HGB, HCT, MCV, MCH, MCHC, RDW, PLT, MPV in the last 72 hours. Discharge Medications: [...] Ellipta 100-62.5-25 MCG/ACT aerosol powder Generic drug: Dwucowgowzq-Ofdxyhfiz-Befmtl STOP taking these medications enoxaparin 80 MG/0.8ML [...] Complexity: follow up within 7-14 calendar days (10173) [x] Severe Complexity: follow up within 7 calendar days (09181) Follow up Testing, Pending results or Referrals [...] Hayward DO Division of Hospitalist Medicine [facility] [email or web address] 08/09/2024, 4:23 PM documented in this encounter [facility] 08-09-2024 Note Formatting of this n ote might be different from the original. Updated PT/OT notes placed to [facility] Ashu Tomlin via Careport per TCC request. Await review and response regarding ability to accept. TCC notified. Electronically signed by ADOPTION COUNSELOR Aracelis Gardiner [employer] 08-09-2024 Note Formatting of this n ote might be different from the original. Updated PT/OT notes placed to SNF [facility] via Careport per TCC request. Await review and response regarding ability to accept. TCC notified. Electronically signed by [facility] Aracelis Gardiner [employer] 08-09-2024 Note Formatting of this n ote might be different from the original. Patient is medically ready for dc. PT/OT both continuing to recommend SNF. [facility] group fitness manager asked to start auth. Plan to dc back to [facility] pending auth [employer] 08-09-2024 Note Formatting of this n ote might be different from the original. Patient is medically ready for dc. PT/OT both continuing to recommend SNF. [facility] group fitness manager asked to start auth. Plan to dc back to [facility] pending auth [employer] 08-08-2024 Note Formatting of this n ote might be different from the original. I was off Yesterday, PT note was in from Tuesday. Therapy to see today was sent out to OT Tuesday to see yesterday. Pt was not seen. I did sent a therapy to see today to PT/OT so an auth can be started. Pt will Be Dc'd to [facility]. CM to follow. [employer] 08-08-2024 Note Formatting of this n ote might be different from the original. I was off Yesterday, PT note was in from Tuesday. Therapy to see today was sent out to OT Tuesday to see yesterday. Pt was not seen. I did sent a therapy to see today to PT/OT so an auth can be started. Pt will Be Dc'd to [facility]. CM to follow. [employer] 08-07-2024 Plan of care note Problem: Knowledge Deficit Goal: Patient/family/caregiver demonstrates understanding of disease process, treatment plan, medications, and discharge instructions Outcome: Progressing Problem: Potential for Compromised Skin Integrity Goal: Skin Integrity is Maintained or Improved Outcome: Progressing Goal: Nutritional status is improving Outcome: Progressing [employer] 08-07-2024 Plan of care note Problem: Knowledge [...] Interventions Goal: Assess Nutritional Intake Outcome: Progressing [employer] 08-07-2024 Note Formatting of this n ote might be different from the original. Case Management Progress Note: Patient remains on 5N for concern with aspiration 2/2 vomiting. Discharge Plan: Return to [facility]. Therapy eval needed for precert. TCC to assist and follow as needed. [employer] 08-07-2024 Note Formatting of this n ote might be different from the original. Case Management Progress Note: Patient remains on 5N for concern with aspiration 2/2 vomiting. Discharge Plan: Return to [facility]. Therapy eval needed for precert. TCC to assist and follow as needed. [facility] [employer] 08-07-2024 Plan of care note Problem: Knowledge [...] Interventions Goal: Assess Nutritional Intake Outcome: Progressing [facility] [employer] 08-06-2024 Plan of care note Problem: Knowledge [...] Interventions Goal: Assess Nutritional Intake Outcome: Progressing [facility] [employer] 08-06-2024 Note Formatting of this n ote might be different from the original. Pt cont's on IV AtBs'. Plan is for pt to return to [facility]. Auth and HECTOR needed prior to DC. CM to follow. [facility] [employer] 08-06-2024 Note Formatting of this n ote might be different from the original. Pt cont's on IV AtBs'. Plan is for pt to return to [facility]. Auth and HECTOR needed prior to DC. CM to follow. [facility] 08-06-2024 Note Formatting of this n ote might be different from the original. Per attending pt ready for DC. Pt will return to [facility]. Pt needs PT/OT to start auth Therapy to see put in for alistair so auth can be started. HECTOR will need completed. CM to follow. [facility] 08-06-2024 Note Formatting of this n ote might be different from the original. Per attending pt ready for DC. Pt will return to [facility]. Pt needs PT/OT to start auth Therapy to see put in for alistair so auth can be started. HECTOR will need completed. CM to follow. [facility] [employer] 08-06-2024 Consult note Associated Order (s): IP [...] assess Fluid Accumulation: No significant fluid accumulation Consumer Product Advisor Strength: Not Performed Nutrition Assessment: Pt hx HTN, stroke, COPD, CKD, IBS. Admitted w/ vomiting and diarrhea. +norovirus. Started on abx for concern of aspiration pna. Pt's symptoms have improved during admission. Consuming and tolerating CLD. Medically stable for discharge back to SNF per notes. Estimated Daily Nutrient Needs: Energy Requirements Based On: Kcal/kg Weight Used for Energy Requirements: [place] Weight for Energy Calculation (kg): 54 kg Total Energy Requirements (kcals/day): 8300-0960 Weight Used for Protein Requirements: [place] Weight in Kg Used for Protein Requirements: [...] Ordered Anthropometric Measures: Height: 162 cm (5' 3.78) Current Body Weight: 74.8 kg (165 lb) (08/03) Weight Source: Bed Scale Usual Body Weight: 66.7 kg (147 lb) (per Epic 05/14; 160# 07/05) % Weight Change (Calculated): 12.2 [place] Body Weight (lbs) (Calculated): 119 lbs [place] Body Weight (Kg) (Calculated): 54 kg BMI [...] to determine Gabriella Michelle RD, LD Contact: [phone] [facility] 08-06-2024 Consult note Associated Order (s): IP [...] assess Fluid Accumulation: No significant fluid accumulation Consumer Product Advisor Strength: Not Performed Nutrition Assessment: Pt hx HTN, stroke, COPD, CKD, IBS. Admitted w/ vomiting and diarrhea. +norovirus. Started on abx for concern of aspiration pna. Pt's symptoms have improved during admission. Consuming and tolerating CLD. Medically stable for discharge back to SNF per notes. Estimated Daily Nutrient Needs: Energy Requirements Based On: Kcal/kg Weight Used for Energy Requirements: [place] Weight for Energy Calculation (kg): 54 kg Total Energy Requirements (kcals/day): 6621-0312 Weight Used for Protein Requirements: [place] Weight in Kg Used for Protein Requirements: [...] Ordered Anthropometric Measures: Height: 162 cm (5' 3.78) Current Body Weight: 74.8 kg (165 lb) (08/03) Weight Source: Bed Scale Usual Body Weight: 66.7 kg (147 lb) (per Epic 05/14; 160# 07/05) % Weight Change (Calculated): 12.2 [place] Body Weight (lbs) (Calculated): 119 lbs [place] Body Weight (Kg) (Calculated): 54 kg BMI [...] to determine Gabriella Michelle RD, LD Contact: [phone] documented in this encounter [facility] 08-06-2024 Plan of care note Problem: Knowledge Deficit Goal: Patient/family/caregiver demonstrates understanding of disease process, treatment plan, medications, and discharge instructions Outcome: Progressing Problem: Potential for Compromised Skin Integrity Goal: Skin Integrity is Maintained or Improved Outcome: Progressing Goal: Nutritional status is improving Outcome: Progressing Problem: Urinary Incontinence Goal: Perineal skin integrity is maintained or improved Outcome: Progressing [employer] 08-05-2024 Plan of care note Problem: Knowledge Deficit Goal: Patient/family/caregiver demonstrates understanding of disease process, treatment plan, medications, and discharge instructions Outcome: Progressing Problem: Potential for Compromised Skin Integrity Goal: Skin Integrity is Maintained or Improved Outcome: Progressing Goal: Nutritional status is improving Outcome: Progressing Problem: Urinary Incontinence Goal: Perineal skin integrity is maintained or improved Outcome: Progressing [employer] 08-04-2024 Plan of care note Problem: Knowledge Deficit Goal: Patient/family/caregiver demonstrates understanding of disease process, treatment plan, medications, and discharge instructions Outcome: Progressing Problem: Potential for Compromised Skin Integrity Goal: Skin Integrity is Maintained or Improved Outcome: Progressing Goal: Nutritional status is improving Outcome: Progressing Problem: Urinary Incontinence Goal: Perineal skin integrity is maintained or improved Outcome: Progressing [employer] 08-04-2024 Nurse Note Bedside swallow completed. Pt passed and tolerated well tolerated well. [employer] 08-04-2024 Plan of care note Problem: Knowledge Deficit Goal: Patient/family/caregiver demonstrates understanding of disease process, treatment plan, medications, and discharge instructions Outcome: Progressing Problem: Potential for Compromised Skin Integrity Goal: Skin Integrity is Maintained or Improved Outcome: Progressing Goal: Nutritional status is improving Outcome: Progressing Problem: Urinary Incontinence Goal: Perineal skin integrity is maintained or improved Outcome: Progressing [employer] 08-03-2024 Plan of care note Problem: Knowledge [...] 0842 by Lima Saenz RN Outcome: Progressing [facility] 08-03-2024 Note Formatting of this n ote might be different from the original. Return referral placed to [facility] via [facility] per TCC request. Await review and response regarding ability to accept. TCC notified. [facility] 08-03-2024 Note Formatting of this n ote might be different from the original. Return referral placed to [facility] via [facility] per TCC request. Await review and response regarding ability to accept. TCC notified. [facility] 08-03-2024 Note Return referral plac ed to [facility] via [facility] per TCC request. Await review and response regarding ability to accept. TCC notified. [facility] 08-03-2024 Note Formatting of this n ote might be different from the original. Pt to ED w N/V/Diarrhea, was Dx w Aspiration pneumonitis. Started on IV ATB's. Called pt's Dtr, Fidel, . Pt is from [facility]. Plan on returning. [facility] tasked to send a return referral. Personally [facility] [employer] 08-03-2024 Note Formatting of this n ote might be different from the original. Pt to ED w N/V/Diarrhea, was Dx w Aspiration pneumonitis. Started on IV ATB's. Called pt's Dtr, Fidel, . Pt is from [facility]. Plan on returning. [facility] tasked to send a return referral. [employer] 08-03-2024 History and physical note Attending History and Physical Admit Date: 08/03/2024 PCP: Jared Evans MD CHIEF COMPLAINT: vomiting/diarrhea Reason for Admission: aspiration pneumonitis History Obtained From: patient HISTORY OF PRESENT ILLNESS: Mle is a 83 y.o. female with past medical history below who presents with chief complaint listed above.Patient is an 83 y/o female who presented to [facility] early this AM from local [place] for vomiting and diarrhea. Patient reported she vomited a large amount early this AM. She didn't realized she [...] Resource Strain: Low Risk (06/20/2024) Received from [facility] Medical Overall Financial Resource Strain [...] min Stress: Patient Unable To Answer (08/03/2024) [place] [employer] Occupational Health - Occupational Stress Questionnaire Feeling of Stress : Patient unable to answer Social Connections: Unknown (08/03/2024) Social Connection and Isolation Panel [NHANES] Frequency of Communication with Friends and Family: Patient unable to answer Frequency of Social Gatherings with Friends and Family: Patient unable to answer Attends Anglican Services: Patient unable to answer Active Member of Clubs or Organizations: Patient unable to answer Attends Club or Organization Meetings: Never Marital Status: Patient unable to answer Recent Concern: Social Connections - Moderately Isolated (06/20/2024) Received from [facility] Medical Social Connection and Isolation Panel [NHANES] Frequency of Communication with Friends and Family: More than three times a week Frequency of Social Gatherings with Friends and Family: Once a week Attends Anglican Services: More than 4 times per year [...] (97.3 F) (Temporal) Resp 20 Ht 5' 3.78 (1.62 m) Wt 165 lb 5.5 oz [...] bowel dilatation PT/INR: No results for input(s): PROTIME, INR in the last 72 hours. CARDIAC ENZYMES: No results for input(s): TROPONINI in the last 72 hours. Procalcitonin: No results found for: PROCAL Urine Culture: No results found for this or any previous visit. COVID-19 PCR: No results for input(s): COVID19 in the last 72 hours. I reviewed: [...] mgmt was pursued: - inpatient admission to [facility] tele - check stool studies and [...] - DO NOT do CPR, intubation] [_] [DNR-CROP RESEARCH SCIENTIST - Comfort care only] [_] DNR form [...] Hospitalist Medicine [facility] Cosigned by Abbi Long DO at 08/03/2024 2:29 PM EST Associated attestation - Abbi Long, - 08/03/2024 2:29 PM EST Patient seen [...] sounds present no guarding or regular rigidity [employer] Work Phone: 08-03-2024 Note [employer] [facility] 08-03-2024 History and physical note Attending History and Physical Admit Date: 08/03/2024 PCP: Jared Evans MD CHIEF COMPLAINT: vomiting/diarrhea Reason for Admission: aspiration pneumonitis History Obtained From: patient HISTORY OF PRESENT ILLNESS: Mel is a 83 y.o. female with past medical history below who presents with chief complaint listed above.Patient is an 83 y/o female who presented to [facility] early this AM from local [place] for vomiting and diarrhea. Patient reported she vomited a large amount early this AM. She didn't realized she [...] Resource Strain: Low Risk (06/20/2024) Received from [facility] Medical Overall Financial Resource Strain [...] min Stress: Patient Unable To Answer (08/03/2024) [place] [employer] Occupational Health - Occupational Stress Questionnaire Feeling of Stress : Patient unable to answer Social Connections: Unknown (08/03/2024) Social Connection and Isolation Panel [NHANES] Frequency of Communication with Friends and Family: Patient unable to answer Frequency of Social Gatherings with Friends and Family: Patient unable to answer Attends Anglican Services: Patient unable to answer Active Member of Clubs or Organizations: Patient unable to answer Attends Club or Organization Meetings: Never Marital Status: Patient unable to answer Recent Concern: Social Connections - Moderately Isolated (06/20/2024) Received from [facility] Medical Social Connection and Isolation Panel [NHANES] Frequency of Communication with Friends and Family: More than three times a week Frequency of Social Gatherings with Friends and Family: Once a week Attends Anglican Services: More than 4 times per year [...] (97.3 F) (Temporal) Resp 20 Ht 5' 3.78 (1.62 m) Wt 165 lb 5.5 oz [...] bowel dilatation PT/INR: No results for input(s): PROTIME, INR in the last 72 hours. CARDIAC ENZYMES: No results for input(s): TROPONINI in the last 72 hours. Procalcitonin: No results found for: PROCAL Urine Culture: No results found for this or any previous visit. COVID-19 PCR: No results for input(s): COVID19 in the last 72 hours. I reviewed: [...] mgmt was pursued: - inpatient admission to [facility] tele - check stool studies and [...] Fidel Mobile Relation: Mother Secondary Emergency Contact: aDmaris Villafana DO NOT CALL-TERMINALLY ILL Mobile Relation: Friend [employer] Mel Pop : [phone] Primary Care Physician: Jared Evans MD The patient and/or family/surrogate voluntarily agreed to participate in ACP services. Patient s cognitive capacity: A&O x 3 Code Status: [_] [FULL CODE - Continue all advanced life support: CPR,intubation,invasive procedures] [x_] [DNR-CCA - DO NOT do CPR, intubation] [_] [DNR-CROP RESEARCH SCIENTIST - Comfort care only] [_] DNR form [...] Hospitalist Medicine [facility] Cosigned by Abbi Long DO at 08/03/2024 [...] or regular rigidity documented in this encounter [facility] 08-03-2024 Plan of care note Problem: Potential for Compromised Skin Integrity Goal: Skin Integrity is Maintained or Improved 08/03/2024 0842 by Lima Saenz RN Outcome: Progressing 08/03/2024 0842 by Lima Saenz RN Outcome: Progressing Problem: Potential for Compromised Skin Integrity Goal: Nutritional status is improving 08/03/2024 08 by Lima Saenz RN Outcome: Progressing 08/03/2024 08 by Lima Saenz RN Outcome: Progressing [facility] 08-03-2024 Plan of care note Problem: Knowledge Deficit Goal: Patient/family/caregiver demonstrates understanding of disease process, treatment plan, medications, and discharge instructions Outcome: Progressing Problem: Potential for Compromised Skin Integrity Goal: Skin Integrity is Maintained or Improved Outcome: Progressing [facility] 08-03-2024 Emergency department Note Pt placed in roundtrip [facility] 08-03-2024 Emergency department Note Pt placed in [...] who presents to the emergency department from [facility] for acute onset nausea/vomiting/diarrhea x [...] minutes prior to ED transport for correction. shelter reports a second resident with similar symptoms earlier today. No known flu or COVID exposures. Patient denying other flu or COVID symptoms such as headache, myalgias, fevers, congestion, cough. Nursing Notes were reviewed. Limitations to history: None Outside historians: shelter staff (Jabari) REVIEW OF SYSTEMS Review of [...] Resource Strain: Low Risk (06/20/2024) Received from [facility] Overall Financial Resource Strain (CARDIA) Difficulty of Paying Living Expenses: Not very hard Food Insecurity: No Food Insecurity (07/09/2024) Received from [facility] Hunger Vital Sign Worried About Running Out of Food in the Last Year: Never true Ran Out of Food in the Last Year: Never true Transportation Needs: No Transportation Needs (07/09/2024) Received from [facility] PRAPARE - Transportation Lack of Transportation (Medical): No Lack of Transportation (Non-Medical): No Physical Activity: Inactive (04/04/2024) Exercise Vital Sign Days of Exercise per Week: 0 days Minutes of Exercise per Session: 0 min Stress: No Stress Concern Present (06/19/2024) Received from [facility] [employer] of Occupational Health - Occupational Stress Questionnaire Feeling of Stress : Not at all Social Connections: Moderately Isolated (06/20/2024) Received from [facility] Medical Social Connection and Isolation Panel [NHANES] Frequency of Communication with Friends and Family: More than three times a week Frequency of Social Gatherings with Friends and Family: Once a week Attends Anglican Services: More than 4 times per year Active Member of Clubs or Organizations: No Attends Club or Organization Meetings: Never Marital Status: Intimate Partner Violence: Not At Risk (06/19/2024) Received from [facility] Medical Domestic Abuse Assessment Do you feel safe in your relationships at home?: Yes Physical Abuse: Denies Verbal Abuse: Denies Housing Stability: Low Risk (07/09/2024) Received from [facility] Housing Stability Vital Sign Unable to [...] (Oral) Resp 18 Ht 1.626 m (5' 4) Wt 72.6 kg (160 lb) LMP (LMP [...] In compliance with this authorization, please visit www.fda.gov/media/403646/download or www.fda.gov/media/748116/download to access the applicable information sheets. LIPASE [...] kg (160 lb) Height: 1.626 m (5' 4) 83 y.o. female medical history of blindness, IBS with diarrhea, CKD 3, history of hysterectomy, atrial fibrillation/history of DVT on Eliquis who presents to the emergency department from [facility] for acute onset nausea/vomiting/diarrhea x [...] minutes prior to ED transport for correction. shelter reports a second resident with similar symptoms [...] baseline. Patient admitted to medical service at [facility] under Dr. Parrish. ED Medications managed: Medications ondansetron (Zofran) injection 4 mg (4 mg IntraVENous Given 08/03/24254) famotidine (Pepcid) 20 mg in sodium chloride (PF) 0.9 % 10 mL injection (20 mg IntraVENous Given 08/03/24254) morphine injection 2 mg (2 mg IntraVENous Given 08/03/24254) promethazine (Phenergan) injection 25 mg (25 mg IntraMUSCular Given 08/03/24 0406) FINAL IMPRESSION 1. Aspiration pneumonitis (CMS/HCC) ([facility]) 2. Vomiting and diarrhea 3. LORENZA (acute kidney injury) ([facility]) DISPOSITION Observation 08/03/2024 04:20:39 AM PATIENT REFERRED [...] DO 08/03/24 0422 documented in this encounter [facility] 08-03-[address] and ED xray notified that patient is ready [facility] 08-03-2024 Physician Emergency department Note EMERGENCY [...] who presents to the emergency department from [facility] for acute onset nausea/vomiting/diarrhea x [...] minutes prior to ED transport for correction. shelter reports a second resident with similar symptoms earlier today. No known flu or COVID exposures. Patient denying other flu or COVID symptoms such as headache, myalgias, fevers, congestion, cough. Nursing Notes were reviewed. Limitations to history: None Outside historians: shelter staff (Jabari) REVIEW OF SYSTEMS Review of Systems Negative except per HPI PAST MEDICAL HISTORY Past Medical History: Diagnosis Date Arrhythmia PAF Asthma Chronic kidney disease COPD (chronic obstructive pulmonary disease) (HCC) DVT (deep venous thrombosis) (HCC) Essential hypertension 03/07/2020 GERD (gastroesophageal reflux disease) Hiatal hernia IBS (irritable bowel syndrome) Pure hypercholesterolemia 03/07/2020 PVD (peripheral vascular disease) ([facility]) Stroke (HCC) SURGICAL HISTORY Past Surgical History: [...] Resource Strain: Low Risk (06/20/2024) Received from [facility] Overall Financial Resource Strain (CARDIA) Difficulty of Paying Living Expenses: Not very hard Food Insecurity: No Food Insecurity (07/09/2024) Received from [facility] Hunger Vital Sign Worried About Running Out of Food in the Last Year: Never true Ran Out of Food in the Last Year: Never true Transportation Needs: No Transportation Needs (07/09/2024) Received from [facility] PRAPARE - Transportation Lack of Transportation (Medical): No Lack of Transportation (Non-Medical): No Physical Activity: Inactive (04/04/2024) Exercise Vital Sign Days of Exercise per Week: 0 days Minutes of Exercise per Session: 0 min Stress: No Stress Concern Present (06/19/2024) Received from [facility] [employer]ational Health - Occupational Stress Questionnaire Feeling of Stress : Not at all Social Connections: Moderately Isolated (06/20/2024) Received from [facility] Social Connection and Isolation Panel [NHANES] Frequency of Communication with Friends and Family: More than three times a week Frequency of Social Gatherings with Friends and Family: Once a week Attends Anglican Services: More than 4 times per year Active Member of Clubs or Organizations: No Attends Club or Organization Meetings: Never Marital Status: Intimate Partner Violence: Not At Risk (06/19/2024) Received from [facility] Domestic Abuse Assessment Do you feel safe in your relationships at home?: Yes Physical Abuse: Denies Verbal Abuse: Denies Housing Stability: Low Risk (07/09/2024) Received from [facility] Housing Stability Vital Sign Unable to [...] (Oral) Resp 18 Ht 1.626 m (5' 4) Wt 72.6 kg (160 lb) LMP (LMP [...] No bowel dilatation Report Dictated on Workstation: [employer] Electronically Signed By: Ming Fry MD Electronically Signed Date/Time: 08/03/2024 4:05 AM EST XR chest 1 view Final Result No acute abnormality Report Dictated on Workstation: [employer] Electronically Signed By: Ming Fry MD Electronically [...] In compliance with this authorization, please visit www.fda.gov/media/732547/download or www.fda.gov/media/421307/download to access the applicable information sheets. LIPASE [...] kg (160 lb) Height: 1.626 m (5' 4) 83 y.o. female medical history of blindness, IBS with diarrhea, CKD 3, history of hysterectomy, atrial fibrillation/history of DVT on Eliquis who presents to the emergency department from [facility] for acute onset nausea/vomiting/diarrhea x [...] minutes prior to ED transport for correction. shelter reports a second resident with similar symptoms [...] baseline. Patient admitted to medical service at [facility] under Dr. Parrish. ED Medications managed: Medications [...] 0406) FINAL IMPRESSION 1. Aspiration pneumonitis (CMS/HCC) ([facility]) 2. Vomiting and diarrhea 3. LORENZA (acute kidney injury) ([facility]) DISPOSITION Observation 08/03/2024 04:20:39 AM PATIENT REFERRED [...] Medicine Provider Mariana King DO 08/03/24 0422 [facility] 08-01-2024 Instructions Savana Lopez MD - 08/01/2024 1:06 PM EST - Continue Pred forte 4x / day right eye - Stop Cipro - Stop Brimonidine - Continue erythromycin antibiotic ointment as needed - Continue Atropine daily RIGHT eye - Continue Timolol 2x / day RIGHT EYE documented in this encounter [facility] 08-01-2024 Note HNO ID: [id number] Author: SAVANA LOPEZ MD Service: ? Author [...] choroidals (not yet appositional) - Evaluated at [facility] 07/12/24 with intense nausea and multiple episodes [...] to HTN (SBP 199/99 at presentation to [facility]) and anticoagulation that led to angle closure [...] agree with all of its relevant components. [facility] 08-01-2024 History of Present illness Narrative POW [...] choroidals (not yet appositional) - Evaluated at [facility] 07/12/24 with intense nausea and multiple episodes [...] to HTN (SBP 199/99 at presentation to [facility]) and anticoagulation that led to angle closure [...] documented in this encounter [facility] 07-30-2024 Note HNO ID: [id number] Author: JOHN PHELAN MD Service: ? Author [...] agree with all of its relevant components. [facility] 07-30-2024 Note HNO ID: [id number] Author: JOHN PHELAN MD Service: ? Author [...] agree with all of its relevant components. 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 Savana Lopez [phone] from 8am-5pm During non-business hours, please call [phone] or ext [phone] and ask for the eye doctor orthopaedic surgeon. documented in this encounter [facility] 07-27-2024 Note HNO ID: [id number] Author: NICOLAS SAHU MD Service: ? Author [...] scheduled Nicolas Sahu MD Vitreoretinal Surgery Fellow [facility] 07-27-2024 History of Present illness Narrative Post-op [...] documented in this encounter [facility] 07-27-2024 Note HNO ID: [id number] Author: MIKHAIL NICHOLS APRN.DIRECTOR OF MARKETING OPERATIONS Service: ? Author Type: Nurse Datastage Consultant Type: Anesthesia Procedure Notes Filed: 07/27/2024 11:25 Note Text: ANESTHESIOLOGY PROCEDURE NOTE Airway General Information Procedure Start Time/Medication Administration: 07/27/2024 11:21 AM Procedure End Time: 07/27/2024 11:24 AM Staffing Anesthesiologist: Robinson Brunner MD DIRECTOR OF MARKETING OPERATIONS: Mikhail Nichols APRN.DIRECTOR OF MARKETING OPERATIONS Performed by: anesthesiologist and DIRECTOR OF MARKETING OPERATIONS Indications and Patient Condition Indications for airway management: anesthesia Preoxygenated: yes Patient position: sniffing Method: asleep Final Airway Details Final airway type: supraglottic airway Number of attempts at approach: 1 Final Supraglottic Airway: LMA Classic Size 4 Seal Adequate: yes Failed airway: no Unrecognized esophageal intubation: no SIGNATURE: Mikhail Nichols APRN.DIRECTOR OF MARKETING OPERATIONS PATIENT NAME: Mel Castillo DATE: July 27, 2024 TIME: 11:24 AM CSN: [id number] [facility] 07-24-2024 Note Date of Procedure 07/23/2024. Principal Electrical Engineer Information Journalism Professor: WESLEY. Start time: 10:44 AM. No view. In wheelchair. Unable to get low enough for photo in downgaze without discomfort. Notes Hazy view, VH; choroidals; possible RD [facility] 07-24-2024 Note Date of Procedure 07/23/2024. Principal Electrical Engineer Information STEWART Donovan 07/23/2024 11:24 AM Reviewed [...] 20mg - Decrease atropine daily right eye (reducing salon attendant) - Continue prednisolone QID right eye (pink [...] than 30 days before your surgery. My rn surgical pcu will be contacting you to schedule this appointment. Your exact time of surgery will not be determined until the day before surgery. My rn surgical pcu will call you the day before your surgery to advise you what time to arrive at the [facility] on the first floor at the [facility]. My rn surgical pcu is Gaston, her number is [phone] Please do no wear contact lenses. We [...] meet you. Your appointment sheet may say 8 AM but this is usually a placeholder and exact time in the morning will be given to you by the retina fellow. It will be at the [facility] on the 2nd floor. We will [...] Regine Gan in the Pre-anesthesia Consultation Clinic ([phone]) to get instructions on their use before [...] call Regine Gan or a Pre-Anesthesia Testing team cdl driver at [phone]. documented in this encounter [facility] 07-23-2024 Note HNO ID: [id number] Author: SAVANA LOPEZ MD Service: ? Author [...] choroidals (not yet appositional) - Evaluated at [facility] 07/12/24 with intense nausea and multiple episodes [...] to HTN (SBP 199/99 at presentation to [facility]) and anticoagulation that led to angle closure [...] agree with all of its relevant components. [facility] 07-23-2024 History of Present illness Narrative Interval: [...] choroidals (not yet appositional) - Evaluated at [facility] 07/12/24 with intense nausea and multiple episodes [...] to HTN (SBP 199/99 at presentation to [facility]) and anticoagulation that led to angle closure [...] documented in this encounter [facility] 07-18-2024 Note HNO ID: [id number] Author: JACI JUAREZ RN Service: Nursing Author Type: Registered Nurse Type: Progress Notes Filed: 07/18/2024 14:08 Note Text: Report given to nurse at [facility]. Transport running behind schedule. [facility] 07-16-2024 Note HNO ID: [id number] Author: MICHAEL SOARES MD Service: Ophthalmology Author Type: Resident Type: Plan of Care Filed: 07/16/2024 21:02 Note Text: Patient evaluated today at [facility] by retina attending Dr. Lopez. Assessment/plan [...] choroidals (not yet appositional) - Evaluated at [facility] 07/12/24 with intense nausea and multiple episodes [...] for repeat B-scan OD / Optos OD [facility] 07-16-2024 Note HNO ID: [id number] Author: ALAINA TIPTON RN Service: ? Author [...] Doctor Josep, on the division, and aware. [facility] 07-16-2024 Note HNO ID: [id number] Author: TRACEY NANCE RN Service: Care Management Author Type: Registered Nurse Type: Care Mgt Progress Note Filed: 07/16/2024 16:49 Note Text: CARE MANAGEMENT PROGRESS NOTE SERVICE DATE: 07/16/2024 SERVICE TIME: 1:04 PM LOS: 9 days Post-Acute Discharge Planning Patient Goal(s): Increase strength [place] of Choice Explained: Discharge Planning Participant(s): Patient/Family Comments: Anticipated # of Days Until Discharge: 0 Transport at Discharge: Needs Prior to Discharge: Needs Prior to Discharge: OT/PT Evaluation Post-Acute Discharge Plan: Discharge to [facility] per FOC. Await updated PT for pre cert initiation. SIGNATURE: Tracey Nance RN PATIENT NAME: Mel Castillo DATE: July 16, 2024 TIME: 1:04 PM [facility] 07-16-2024 Note Date of Procedure 07/16/2024. Principal Electrical Engineer Information Journalism Professor: Arin Vital. Start time: 8:56 AM. Stop time: 8:56 AM. Notes OD only; Hard view 360 hemorrhagic choroidals [facility] 07-16-2024 Note Date of Procedure 07/16/2024. Principal Electrical Engineer Information STEWART Donovan 07/16/2024 9:34 AM . [...] choroidals (not yet appositional) - Evaluated at [facility] 07/12/24 with intense nausea and multiple episodes [...] documented in this encounter [facility] 07-16-2024 Note HNO ID: [id number] Author: SAVANA LOPEZ MD Service: ? Author [...] choroidals (not yet appositional) - Evaluated at [facility] 07/12/24 with intense nausea and multiple episodes [...] to HTN (SBP 199/99 at presentation to [facility]) and anticoagulation that led to angle closure [...] of its relev (more content not included)... [facility] 07-16-2024 Note HNO ID: [id number] Author: BRIANA PRITCHARD MD Service: General Internal Medicine Author Type: Physician Type: Progress Notes Filed: 07/16/2024 14:26 Note Text: Internal Medicine - Dae Chaudhry Progress Note Patient Name: Mel Castillo Patient Location: [facility] 031/H060-31 Admission Date: 07/07/2024 Length of Stay: 9 Primary Service: DAE Chaudhry Staff: Briana Pritchard MD Primary Service: Dae Chaudhry INTERVAL HISTORY: - No acute events overnight. Bradycardic to 50s overnight but this AM HDS and afebrile - This AM seen by ophthalmology at [facility] Optho appointment Objective MEDICATIONS: Current [...] Drain Duration External Collection Device 07/15/24 1000 [facility] <1 day Intake/Output 07/12/24 0700 - 07/13/24 [...] PMH of COPD (more content not included)... [facility] 07-15-2024 Note HNO ID: [id number] Author: OTILIO GERBER MD Service: Ophthalmology Author [...] to HTN (SBP 199/99 at presentation to [facility]) that caused angle closure and elevated IOP [...] PATIENT DOWN FOR FOLLOW UP AT [facility] - Post-op precautions reviewed, including: Signs and symptoms of endophthalmitis, and retinal detachment warning signs reviewed, including increasing floaters, flashes or changes in peripheral vision. [facility] 07-15-2024 Note HNO ID: [id number] Author: BRIANA PRITCHARD MD Service: General Internal Medicine Author Type: Physician Type: Progress Notes Filed: 07/15/2024 12:59 Note Text: Internal Medicine - Dae Chaudhry Progress Note Patient Name: Mel Castillo Patient Location: [place] [id number] Admission Date: 07/07/2024 Length of Stay: 8 [...] 9.1 9.3 9.3 (more content not included)... [facility] 07-14-2024 Note HNO ID: [id number] Author: BRIANA PRITCHARD MD Service: Hospital Medicine Author Type: Physician Type: Progress Notes Filed: 07/14/2024 13:37 Note Text: Internal Medicine - Dae Chaudhry Progress Note Patient Name: Mel Castillo Patient Location: [place] [id number] Admission Date: 07/07/2024 Length of Stay: 7 [...] Castillo is a (more content not included)... [facility] 07-14-2024 Note HNO ID: [id number] Author: NICOLAS SAHU MD Service: Ophthalmology Author [...] to HTN (SBP 199/99 at presentation to [facility]) that caused angle closure and elevated IOP [...] vision. Nicolas Sahu MD Vitreoretinal Surgery Fellow [facility] 07-13-2024 Note HNO ID: [id number] Author: MARCIA MARTINS APRN.DIRECTOR OF MARKETING OPERATIONS Service: ? Author Type: Nurse Datastage Consultant Type: Anesthesia Procedure Notes Filed: 07/13/2024 12:43 Note Text: ANESTHESIOLOGY PROCEDURE NOTE Airway General Information Procedure Start Time/Medication Administration: 07/13/2024 12:28 PM Procedure End Time: 07/13/2024 12:42 PM Patient location during procedure: OR Timeout Performed Pre-procedure: timeout performed Consent Obtained: Yes Patient identity confirmed: arm band, care team cdl driver and patient Staffing DIRECTOR OF MARKETING OPERATIONS: Marcia Martins APRN.DIRECTOR OF MARKETING OPERATIONS Performed by: CARIE Indications and Patient Condition Indications for airway management: anesthesia Preoxygenated: yes anesthesia circuit Method: sleep Difficult Mask: No Final Airway Details Final airway type: supraglottic airway Number of attempts at approach: 1 Final Supraglottic Airway: Supraglottic airway: ambu auraonce. Size 4 Seal Adequate: yes Failed airway: no Unrecognized esophageal intubation: no Airway not difficult Comments atraumatic SIGNATURE: Marcia Martins APRN.DIRECTOR OF MARKETING OPERATIONS PATIENT NAME: Mel Castillo DATE: July 13, 2024 TIME: 12:42 PM CSN: [id number] [facility] 07-13-2024 Note HNO ID: [id number] Author: FELICIA LEVY MD Service: General Internal [...] of vision now s/p laser iridotomy at [facility] then trasnferred to [facility] for further management. S/p multiple [...] 07/13/2024 Time: 2:31 PM Internal Medicine - Dea Chaudhry Progress Note Patient Name: Mel Castillo Patient Location: [address] [facility]/H060-31 Admission Date: 07/07/2024 Length of Stay: 6 Primary Service: DAE Chaudhry Staff: Felicia Levy* Primary Service: Dae Chaduhry INTERVAL HISTORY: - NAEO. - Afebrile. VSS. [...] mg ORAL DAILY (more content not included)... [facility] 07-12-2024 Note HNO ID: [id number] Author: TRACEY NANCE RN Service: Care Management Author Type: Registered Nurse Type: Care Mgt Progress Note Filed: 07/12/2024 16:50 Note Text: CARE MANAGEMENT PROGRESS NOTE SERVICE DATE: 07/12/2024 SERVICE TIME: 4:46 PM LOS: 5 days Post-Acute Discharge Planning Patient Goal(s): Increase strength [place] of Choice Explained: Discharge Planning Participant(s): Patient/Family Comments: Anticipated # of Days Until Discharge: 0 Transport at Discharge: Needs Prior to Discharge: Post-Acute Discharge Plan: Await SNF choices spoke w/ daughter in law Fidel Garcia sent to Mya JOSH yesterday. This CM reached out to Mya via email for choices. Daughter In law cannot recall selections. covering CM will need to reach out to Mya tomorrow for selections that were emailed to her. SIGNATURE: Tracey Nance RN PATIENT NAME: Mel Castillo DATE: July 12, 2024 TIME: 4:46 PM [facility] 07-12-2024 Note Date of Procedure 07/12/2024. Principal Electrical Engineer Information CHAR Veliz ROUB 07/12/2024 12:15 PM . Notes B scan OD: From wheelchair. Patient vomiting during this visit. Best images possible. 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 Possible increased height maximum now at 12:00 measuring 10.0 mm. 2) Not able to assess for mobility today due to patient discomfort 3) SRF over choroidals in three quadrants. [facility] 07-12-2024 Note Date of Procedure 07/12/2024. Principal Electrical Engineer Information Journalism Professor: JACQUELINE. Imaging Comments: Limited exam due to patient discomfort-best images possible . Notes Worsening choroid detachments [facility] 07-12-2024 Note HNO ID: [id number] Author: THOMAS SCHMITZ MD Service: ? Author [...] to HTN (SBP 199/99 at presentation to [facility]) that caused angle closure and elevated IOP [...] Resident, PGY-[address] Phelan [facility] 07-12-2024 History of Present illness Narrative Interval [...] choroidals (not yet appositional) - Evaluated at [facility] 07/12/24 with intense nausea and multiple episodes [...] to HTN (SBP 199/99 at presentation to [facility]) that caused angle closure and elevated IOP [...] documented in this encounter [facility] 07-12-2024 Note HNO ID: [id number] Author: FELICIA LEVY MD Service: General Internal [...] of vision now s/p laser iridotomy at [facility] then trasnferred to [facility] for further management. S/p multiple [...] dispo to SNF or home with [facility] (challenging given multiple daily eye drops and medications) - Rest per excellent note by resident Signature: Felicia Levy MD Date: 07/12/2024 Time: 1:27 PM Internal Medicine - Dae Chaudhry Progress Note Patient Name: Mel Castillo [address] Admission Date: 07/07/2024 Length of Stay: 5 [...] ORAL BID HYDROmorpho (more content not included)... [facility] 07-11-2024 Note HNO ID: [id number] Author: FELICIA LEVY MD Service: General Internal [...] of vision now s/p laser iridotomy at [facility] then trasnferred to [facility] for further management. S/p multiple [...] Note Patient Name: Mel Castillo [address] Admission Date: 07/07/2024 Length of Stay: [...] H PRN [place] (more content not included)... [facility] 07-10-2024 Note HNO ID: [id number] Author: FELICIA LEVY MD Service: General Internal [...] of vision now s/p laser iridotomy at [facility] then trasnferred to [facility] for further management. S/p multiple [...] Stay: 3 Primary Service: DAE Chaudhry Staff: Felciia Levy* Primary Service: Dae Chaudhry INTERVAL HISTORY: [...] Range in last (more content not included)... [facility] 07-09-2024 Note HNO ID: [id number] Author: TRACEY NANCE RN Service: Care Management [...] Relation: Other Admission Status: Inpatient Insurance Provider[facility] MED[facility] Discharge Planning requested by: Per Department Practice Potential Transition Plans Home Care Advance Directives Current Advance Directive: Health Care Power of Potato Sorter In Chart: Yes Up To Date and Valid: Yes Current Living Arrangements and Support Lives with: Alone Type of Residence: Mobile Home Support: Friends/neighbors, Family members How do you manage to accomplish the following: Independent: Ambulation;Bathe/Shower;Dress;Angélica g to the bathroom Needs Assistance: Meals/Meal Prep;Medication Management;Transportation to appointments/community Current Services/Equipment Discharge Planning Patient Goal(s): Increase strength [place] of Choice Explained: [place] of Choice Given: Yes Level of Care Discussed: Home Care Are you interested in bedside delivery of your medications? Yes Discharge Planning Participant(s): Caregiver;Family Patient/Family Comments: Fidel Hdez (Other) Caregiver Assessment: Caregiver is ready, willing and able to meet the patient's needs as recommended by the inter-professional team: (friends) Transport at Discharge: Transportation Arrangements: Car Destination: [address] [address] [facility] [address] [place] [address] Needs Prior to Discharge: Post-Acute Discharge Plan: Anticipate DC home with [facility] 24-48 hours. HC referrals placed . Await OT evaluation. Patient lives alone in trailer , There are 4 steps to entrance, Using rolator prior to admission. Patient independent with ADL and assist with iADL prior to admission.Patient receives meals on wheels. Family transport to appointments and can provide art department head assist. Family transport home. This CM spoke with sister in law for initial assessment. Per sister in law. Family is concerned with DC home with current vision status as patient does not have / supervision. Concerned with patient seeing her meds . Concerned for falls. Family works during day . Request medical team to follow up with Fidel regarding medical plans and possible future surgery. SIGNATURE: Tracey Nance RN PATIENT NAME: Mel Castillo DATE: July 09, 2024 TIME: 4:07 PM [facility] 07-09-2024 Note HNO ID: [id number] Author: NADIA VIDAL ? Service: Pharmacy Author Type: Horse Show Judge Type: Plan of Care Filed: 07/09/2024 12:31 Note Text: Insurance investigation completed Patient has active prescription insurance: Yes - Patient's insurance is in-network with [facility] Insurance loaded into [place]: Yes Test claim was completed to verify insurance is active: Successful Any questions, please reach out to your medication backup administrative coordinator. [facility] 07-09-2024 Note HNO ID: [id number] Author: GISSELL POPE RPh Service: Pharmacy Author Type: Pharmacist Type: Plan of Care Filed: 07/09/2024 12:32 Note Text: PHARMACY MEDICATION REVIEW Patient Name: Mel Castillo : 1940 The following medications were updated within the EDUCATIONAL COORDINATOR medication list: Medications ADDED to EDUCATIONAL COORDINATOR medication list Furosemide 40 mg prn swelling Medications CHANGED on EDUCATIONAL COORDINATOR medication list Lisinopril 10 mg changed to 40 mg Increased from 5 mg daily to 40 mg daily on last hospital discharge Medications REMOVED from EDUCATIONAL COORDINATOR medication list Albuterol HFA PRN Lidocaine 4% [...] Yes Completed by: Gissell Pope RPh All EDUCATIONAL COORDINATOR medications addressed by LIP Patient interested in Bedside Delivery Services or using OP Pharmacy at discharge? Yes. Discharge Pharmacy Updated Preferred outpatient pharmacy: [id number] [place] [address] [address] [facility] [phone] [facility] Allergies: Percocet [Oxycodone* Itching [...] Inject 0.7 mL subcutaneously every 12 hours. mvjrtkkumix-ufmbmakgj-bmodjgyb (TRELEGY ELLIPTA) 100-62.5-25 mcg inhalation powder 07/06/2024 [...] Drop (MYDRIACYL) None recorded 1 Gissell Pope [facility] 07/09/2024 [facility] 07-09-2024 Note HNO ID: [id number] Author: OTILIO GERBER MD Service: ? Author [...] Follow up with Dr. Lopez Monday 07/16 [facility] eye clinic -Can continue anticoagulation -Patient [...] NLP vision Otilio Gerber MD Ophthalmology Resident [facility] Patient seen and discussed with Dr. Phelan [facility] 07-09-2024 History of Present illness Narrative OPHTHALMOLOGY CONSULT PROGRESS NOTE Patient Name: Mel Castillo Patient Admission Date: 07/07/2024 Today's Date: 07/09/24 Interval history: - CT orbits reviewed with good globe contour no evidence of open globe, known choroidal detachments present -Still with 8 pain OD improved form 04/26 on presentation [...] Follow up with Dr. Lopez Monday 07/16 [facility] eye clinic -Can continue anticoagulation -Patient [...] NLP vision Otilio Gerber MD Ophthalmology Resident [facility] Patient seen and discussed with Dr. Phelan documented in this encounter [facility] 07-09-2024 Note HNO ID: [id number] Author: FELICIA LEVY MD Service: General Internal [...] [facility] then trasnferred to [facility] for further management. S/p multiple [...] (ml) -2 350 (more content not included)... [facility] 07-08-2024 Note HNO ID: [id number] Author: FELICIA LEVY MD Service: Hospital Medicine [...] [facility] then trasnferred to [facility] for further management. Plan: - [...] Note Patient Name: Mel Castillo [id number] Admission Date: 07/07/2024 Length of Stay: 1 Primary Service: DAE Chaudhry Staff: Felicai Levy* Primary Service: Dae Chaudhry INTERVAL HISTORY: [...] 07/07/24 1853 12/ (more content not included)... [facility] 07-07-2024 Note HNO ID: [id number] Author: JARED GILMORE MD Service: ? Author [...] components. Jared Gilmore MD Vitreoretinal Surgery Fellow [facility] 07-07-2024 History of Present illness Narrative New [...] documented in this encounter [facility] 07-07-2024 Note [facility] 07-07-2024 Hospital course Narrative Discharge Summary [...] kidney disease COPD (chronic obstructive pulmonary disease) ([facility]) DVT (deep venous thrombosis) ([facility]) Essential hypertension 03/07/2020 GERD (gastroesophageal reflux disease) Hiatal hernia IBS (irritable bowel syndrome) Pure hypercholesterolemia 03/07/2020 PVD (peripheral vascular disease) ([facility]) Stroke ([facility]) Procedures: multiple peripheral iridotomies Hospital Course: See [...] (97.7 F) (Temporal) Resp 12 Ht 5' 4 (1.626 m) Wt 160 lb (72.6 kg) [...] Ellipta 100-62.5-25 MCG/ACT aerosol powder Generic drug: Vqfzjstvwgg-Nqcedkrmn-Kgiiqv STOP taking these medications albuterol 108 (90 [...] ophthalmic solution Recommended Follow-up: Tre Lombardi MD [address] [place] [address] [address] [facility] [address] Call in 2 month(s) Need follow up in December 2024 for aneurysm surveillence Complexity of Follow up: [] Moderate Complexity: follow up within 7-14 calendar days (47833) [x] Severe Complexity: follow up within 7 calendar days (90867) - after DC from [facility] Follow up [...] Red Henderson DO Division of Hospitalist Medicine [facility] 07/07/2024, 11:08 AM documented in this encounter [facility] 07-07-2024 Nurse Note Report called to [facility]. [facility] 07-07-2024 Nurse Note Report called to [facility]. This RN called Protective Services to try and locate pts lost glasses from 07/05/2024. Glasses that match the description are in lost and found. Will attempt to see if glasses are a match. documented in this encounter [facility] 07-07-2024 Note Formatting of this n [...] Length of Stay (Days): 0 GMLOS: 2.3 [facility] 07-07-2024 Note Formatting of this n [...] Length of Stay (Days): 0 GMLOS: 2.3 [facility] 07-07-2024 Miscellaneous Notes Care Management Progress Note [...] in mobile home. Consults in progress. Need [facility] to follow - does have pcp [...] working on this . With staff. [facility] she is agreeable to it if [...] - DO NOT do CPR, intubation] [_] [DNR-CROP RESEARCH SCIENTIST - Comfort care only] [_] DNR form [...] patient and/or family/surrogate. Silvio Peres MD [facility] 07/05/2024, 1:18 PM documented in this encounter [facility] 07-07-2024 History of Present illness Narrative Nutrition rescreen completed. Chart reviewed. Patient to be monitored and followed by the diet air analysis technician. Images from the original note were not included. PHYSICAL THERAPY [facility] Initial Evaluation Name/MRN: Mel Pop ([id number]) Evaluation Date: 07/06/2024 Date of : 1940 Admission Date: 07/05/2024 4:21 AM Age: 83 y.o. Room/Bed: W3324/W3324 A Discharge Recommendation: Custodial Facility Equipment Needed: [...] kidney disease COPD (chronic obstructive pulmonary disease) ([facility]) DVT (deep venous thrombosis) ([facility]) Essential hypertension 03/07/2020 GERD (gastroesophageal reflux disease) Hiatal hernia IBS (irritable bowel syndrome) Pure hypercholesterolemia 03/07/2020 PVD (peripheral vascular disease) ([facility]) Stroke ([facility]) Past Surgical History: Past Surgical History: Procedure [...] of deep vessels of proximal lower extremity ([facility]) 04/14/2024 Peripheral arterial disease ([facility]) 04/03/2024 Immunodeficiency due to conditions classified elsewhere ([facility]) 07/27/2023 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 ([facility]) 07/27/2023 Bilateral pneumonia 06/16/2022 COVID-19 06/16/2022 Hypothyroidism 06/16/2022 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[facility]) 06/16/2022 Cellulitis 05/18/2022 Nicotine use disorder 05/18/2022 Acute venous embolism and thrombosis of deep vessels of proximal end of right lower extremity ([facility]) 04/19/2024 Atrial fibrillation, unspecified type ([facility]) 04/19/2024 Irritable bowel syndrome with diarrhea 03/07/2020 Microscopic hematuria 03/07/2020 Left retinal detachment 03/07/2020 Hyperglycemia 03/07/2020 Osteopenia of left femoral neck 03/07/2020 senior care current use of anticoagulant therapy 03/07/2020 Seasonal allergies 03/07/2020 Chronic renal insufficiency, stage III (moderate) ([facility]) 03/07/2020 Major depression, single episode, in complete remission ([facility]) 03/07/2020 Gastroesophageal reflux disease without esophagitis 03/07/2020 Essential hypertension 03/07/2020 Pure hypercholesterolemia 03/07/2020 Overweight 03/07/2020 Psoriasis 03/07/2020 History of cerebrovascular accident 03/07/2020 Atrial fibrillation ([facility]) 03/07/2020 Chronic obstructive pulmonary disease ([facility]) 03/07/2020 Finger osteomyelitis, right ([facility]) 03/06/2020 Medical Precautions: No active isolations Proper [...] support system of friends and family Active Technical Manager: Prior Level of Function Prior Level of [...] to a [facility] Therapy Services Physical Therapist. Goals and/or treatment plan was established in collaboration with patient/family/other representatives. Hospitalist Progress Note 07/06/2024 Subjective: Admit Date: 07/05/2024 PCP: Jared Evans MD [facility] BRIEF HOSPITAL COURSE: Per admitting hospitalist's [...] Will admit for further evaluation and management. Interval History: Patient seen and examined. Chart [...] kidney disease COPD (chronic obstructive pulmonary disease) ([facility]) DVT (deep venous thrombosis) ([facility]) Essential hypertension 03/07/2020 GERD (gastroesophageal reflux disease) Hiatal hernia IBS (irritable bowel syndrome) Pure hypercholesterolemia 03/07/2020 PVD (peripheral vascular disease) ([facility]) Stroke ([facility]) LABS: CBC: Recent Labs 07/05/24 0435 07/06/24 [...] 1.0 CARDIAC ENZYMES: No results for input(s): TROPONINI in the last 72 hours. Procalcitonin: No results found for: PROCAL COVID-19 PCR: No results for input(s): COVID19 in the last 72 hours. Objective: Vitals: BP 144/57 (BP Location: Right arm, Patient Position: Lying) Pulse 65 Temp 36.8 C (98.3 F) (Temporal) Resp 18 Ht 5' 4 (1.626 m) Wt 160 lb (72.6 kg) [...] Henderson DO Division of Hospitalist Medicine Acute [facility] documented in this encounter [facility] 07-06-2024 Nurse Note This RN called Protective Services to try and locate pts lost glasses from 07/05/2024. Glasses that match the description are in lost and found. Will attempt to see if glasses are a match. [facility] 07-06-2024 Telephone encounter Note TELEPHONE ENCOUNTER 07/06/2024 Patient with recent stroke and admitted to [facility] where she was noted to have elevated IOP with retinal detachment of the right eye by consult railroad brakeman. She has a history of RD in [...] Elizondo MD Ophthalmology Resident [facility] Work Phone: 07-06-2024 Miscellaneous Notes TELEPHONE ENCOUNTER 07/06/2024 Patient with recent stroke and admitted to [facility] where she was noted to have elevated IOP with retinal detachment of the right eye by consult railroad brakeman. She has a history of RD in [...] documented in this encounter [facility] 07-06-2024 Note Formatting of this n [...] working on this . With staff. [facility] she is agreeable to it if goes home . [employer] 07-06-2024 Note Formatting of this n ote might be different from the original. Complicated discharge , live alone, poor vision - PT/OT now ordered- live in mobile home. Consults in progress. Need [facility] to follow - does have pcp [...] working on this . With staff. [facility] she is agreeable to it if goes home . [employer] 07-06-2024 Consult note Formatting of th is [...] referral to a retinal subspecialist at either [facility] or [facility] for repair of retinal detachment right eye (OD). Continue ophthalmic pressure lowering ophthalmic meds right eye (OD) until seen by retinal subspecialist. [employer] Work Phone: 07-06-2024 Consult note Formatting of [...] referral to a retinal subspecialist at either [facility] or [facility] for repair of retinal detachment right [...] Associated Order(s): Inpatient consult to Endovascular Neurology--[facility] Inpatient consult to Endovascular Neurology--[facility] Consult performed by: Helga Naik APRN - NON PROFIT FINANCIAL CONTROLLER Consult ordered by: Wm Nunes DO Reason [...] kidney disease, COPD (chronic obstructive pulmonary disease) ([facility]), DVT (deep venous thrombosis) ([facility]), Essential hypertension (03/07/2020), GERD (gastroesophageal reflux disease), Hiatal hernia, IBS (irritable bowel syndrome), Pure hypercholesterolemia (03/07/2020), PVD (peripheral vascular disease) ([facility]), and Stroke ([facility]). She has no past medical history of Cancer ([facility]) ([facility]), Cerebral artery occlusion with cerebral infarction ([facility]), CHF (congestive heart failure) ([facility]), Diabetes mellitus ([facility]), Hemodialysis patient ([facility]) ([facility]), blood clots, or MDRO (multiple drug resistant [...] resp. rate 14, height 1.626 m (5' 4), weight 72.6 kg (160 lb), SpO2 97%. [...] Name: Mel Pop Patient : 1940 Acct: [id number] Date of Admission: 07/05/2024 Room/Bed: 60/60 PCP: [...] kidney disease COPD (chronic obstructive pulmonary disease) ([facility]) DVT (deep venous thrombosis) ([facility]) Essential hypertension 03/07/2020 GERD (gastroesophageal reflux disease) Hiatal hernia IBS (irritable bowel syndrome) Pure hypercholesterolemia 03/07/2020 PVD (peripheral vascular disease) ([facility]) Stroke ([facility]) Past Surgical History: Past Surgical History: Procedure [...] Historical Provider, ergocalciferol (Vitamin D2) 1.25 MG (19078 UT) capsule Take 1.25 mg by mouth [...] 5 MG tablet Take as directed by [facility] Anticoagulation Clinic (90 tablets = 90 [...] , Rfl: ergocalciferol (Vitamin D2) 1.25 MG (87393 UT) capsule, Take 1.25 mg by mouth [...] 5 MG tablet, Take as directed by [facility]tico[facility] (90 tablets = 90 [...] 0434 (!) 197/99 65 99 % -- 07/05/24428 -- -- -- 160 lb (72.6 kg) 07/05/248 (!) 160/105 63 -- -- No intake/output [...] reflex present -X Palate:intact -XI Shoulder shrug: intactnormal -XII Tongue movement: normal Funduscopic Exam: normal, [...] - 5.20 mg/dl No results for input(s): PH, PO2, PCO2, HCO3, O2SAT in the last 72 hours. No lab exists for component: BE No results for input(s): INR in the last 72 hours. Radiology: CT [...] this patient's care. documented in this encounter [facility] 07-05-2024 Consult note Formatting of th [...] drops are started. Will continue to follow. [facility] 07-05-[address] Carlson at bedside. [facility] 07-05-[address] Carlson [...] to Maritza FRAGA Emergency Department Encounter Location: [facility] EMERGENCY DEPT Patient: Mel Pop : [...] 423 ms QTC Interval 418 ms P [place] 0 degrees QRS [place] 37 degrees T Wave [place] 29 degrees AL Interval 0 ms Troponin, High Sensitivity, Serial, [...] Given 07/05/24 0517) I am not the market asset protection manager of record. Dr. Nunes is the market asset protection manager of record. Final Impression 1. Vision loss [...] MD 07/05/24 1322 documented in this encounter [facility] 07-05-2024 Note Formatting of this n [...] - DO NOT do CPR, intubation] [_] [DNR-CROP RESEARCH SCIENTIST - Comfort care only] [_] DNR form [...] patient and/or family/surrogate. Silvio Peres MD [facility] 07/05/2024, 1:18 PM [facility] 07-05-2024 Note Formatting of this n ote [...] - DO NOT do CPR, intubation] [_] [DNR-CROP RESEARCH SCIENTIST - Comfort care only] [_] DNR form [...] and/or family/surrogate. Silvio Peres MD Acute care 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 History Obtained From: patient and patient's [id number] HISTORY OF PRESENT ILLNESS: Mel is a [...] Resource Strain: Low Risk (06/20/2024) Received from [facility] Overall Financial Resource Strain (CARDIA) Difficulty of Paying Living Expenses: Not very hard Food Insecurity: No Food Insecurity (06/20/2024) Received from [facility] Hunger Vital Sign Worried About Running Out of Food in the Last Year: Never true Ran Out of Food in the Last Year: Never true Transportation Needs: No Transportation Needs (07/02/2024) Received from [facility] Transportation Source Has lack of transportation [...] Present (06/19/2024) Received from [facility] [place] of Occupational Health - Occupational Stress Questionnaire Feeling of Stress : Not at all Social Connections: Moderately Isolated (06/20/2024) Received from [facility] Medical Social Connection and Isolation Panel [NHANES] Frequency of Communication with Friends and Family: More than three times a week Frequency of Social Gatherings with Friends and Family: Once a week Attends Anglican Services: More than 4 times per year Active Member of Clubs or Organizations: No Attends Club or Organization Meetings: Never Marital Status: Intimate Partner Violence: Not At Risk (06/19/2024) Received from [facility] Medical Domestic Abuse Assessment Do you feel safe in your relationships at home?: Yes Physical Abuse: Denies [facility] Domestic Abuse - Type of Abuse: Not on file [facility] Domestic Abuse - Time Frame: Not on file [facility] Domestic Abuse - Signs and Symptoms: Not on file Verbal Abuse: Denies [facility] Domestic Abuse - Reported To: Not on file Housing Stability: Low Risk (06/20/2024) Received from [facility] Medical Housing Stability Vital Sign [...] the evening. ergocalciferol (Vitamin D2) 1.25 MG (23350 UT) capsule Take 1.25 mg by mouth [...] 5 MG tablet Take as directed by [facility] Anticoagulation [facility] (90 tablets = 90 day supply). Current dose: 5 mg daily. 90 tablet 0 Allergies: Allergies Allergen Reactions Advair Hfa [Fluticasone-Salmeterol] Arm numbness Amoxicillin Vomiting and diarrhea Percocet [Oxycodone-Acetaminophen] Itching REVIEW OF SYSTEMS: ROS negative except for what is mentioned in HPI Vitals: BP (!) 185/53 Pulse 68 Temp 36.4 C (97.6 F) (Axillary) Resp 18 Ht 5' 4 (1.626 m) Wt 160 lb (72.6 kg) [...] 1.0 CARDIAC ENZYMES: No results for input(s): TROPONINI in the last 72 hours. Procalcitonin: No results found for: PROCAL Urine Culture: No results found for this or any previous visit. COVID-19 PCR: No results for input(s): COVID19 in the last 72 hours. I reviewed: [...] [facility] 1940 [id number] Exam Date/Time: 07/05/2024 11:45 Procedure: MR BRAIN [...] 07/05/2024 Patient Name: MEL POP : 1940 [facility]#: [id number] Exam Date/Time: 07/05/2024 04:36 Procedure: CT HEAD [...] 07/05/2024 Patient Name: MEL POP : 1940 [facility]#: [id number] Exam Date/Time: 07/05/2024 04:36 Procedure: CT HEAD [...] : 1940 [id number] Exam Date/Time: 07/05/2024 04:36 Procedure: CT PERFUSION [...] glucose meter Result Date: 07/05/2024 Performed by: [facility], [address] [place] [address] CLIA ID: [id number] Assessment / Plan Discussed management with the [...] Hospitalist Medicine [employer] [facility] [employer] Dictated using [employer] Medical Version 2.4 Proof read however unrecognized voice recognition errors may have occurred [employer] Work Phone: 07-05-2024 Note [employer] [facility] 07-05-2024 History and physical note Attending History and Physical Admit Date: 07/05/2024 PCP: Jared Evans MD CHIEF COMPLAINT: Loss of vision right eye, headache/eye pain, nausea, eye swelling Reason for Admission: 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 History Obtained From: patient and patient's [id number] HISTORY OF PRESENT ILLNESS: Mel is a [...] Resource Strain: Low Risk (06/20/2024) Received from [facility] Medical Overall Financial Resource Strain (CARDIA) Difficulty of Paying Living Expenses: Not very hard Food Insecurity: No Food Insecurity (06/20/2024) Received from [facility] Medical Hunger Vital Sign Worried About Running Out of Food in the Last Year: Never true Ran Out of Food in the Last Year: Never true Transportation Needs: No Transportation Needs (07/02/2024) Received from [facility] Medical SDIA Transportation Source Has lack of transportation kept [...] Present (06/19/2024) Received from [facility] [place] of Occupational Health - Occupational Stress Questionnaire Feeling of Stress : Not at all Social Connections: Moderately Isolated (06/20/2024) Received from [facility] Medical Social Connection and Isolation Panel [NHANES] Frequency of Communication with Friends and Family: More than three times a week Frequency of Social Gatherings with Friends and Family: Once a week Attends Anglican Services: More than 4 times per year Active Member of Clubs or Organizations: No Attends Club or Organization Meetings: Never Marital Status: Intimate Partner Violence: Not At Risk (06/19/2024) Received from [facility] Medical Domestic Abuse Assessment Do you feel safe in your relationships at home?: Yes Physical Abuse: Denies [facility] Domestic Abuse - Type of Abuse: Not on file [facility] Domestic Abuse - Time Frame: Not on file [facility] Domestic Abuse - Signs and Symptoms: Not on file Verbal Abuse: Denies [facility] Domestic Abuse - Reported To: Not on file Housing Stability: Low Risk (06/20/2024) Received from [facility] Housing Stability Vital Sign Unable to [...] the evening. ergocalciferol (Vitamin D2) 1.25 MG (23531 UT) capsule Take 1.25 mg by mouth [...] 5 MG tablet Take as directed by [facility] Anticoagulation Clinic (90 tablets = 90 day supply). Current dose: 5 mg daily. 90 tablet 0 Allergies: Allergies Allergen Reactions Advair Hfa [Fluticasone-Salmeterol] Arm numbness Amoxicillin Vomiting and diarrhea Percocet [Oxycodone-Acetaminophen] Itching REVIEW OF SYSTEMS: ROS negative except for what is mentioned in HPI Vitals: BP (!) 185/53 Pulse 68 Temp 36.4 C (97.6 F) (Axillary) Resp 18 Ht 5' 4 (1.626 m) Wt 160 lb (72.6 kg) [...] 1.0 CARDIAC ENZYMES: No results for input(s): TROPONINI in the last 72 hours. Procalcitonin: No results found for: PROCAL Urine Culture: No results found for this or any previous visit. COVID-19 PCR: No results for input(s): COVID19 in the last 72 hours. I reviewed: [...] : 1940 [id number] Exam Date/Time: 07/05/2024 04:36 Procedure: CT HEAD [...] 07/05/2024 Patient Name: MEL POP : 1940 [facility]#: [id number] Exam Date/Time: 07/05/2024 04:36 Procedure: CT PERFUSION [...] glucose meter Result Date: 07/05/2024 Performed by: [facility], [address] [place] [address] CLIA ID: [id number] Assessment / Plan Discussed management with the [...] Friend Secondary Emergency Contact: José Miguel Castillo/ [employer] Relation: Child Silvio Peres MD Division of Hospitalist Medicine [employer] Dictated using [employer] Version 2.4 Proof read however unrecognized voice recognition errors may have occurred documented in this encounter [facility] [employer] 07-05-2024 Emergency department Note Provider notified of patient request for pain meds. [facility] [employer] 07-05-2024 Consult note Associated Order (s): IP [...] drops to be discontinued after 4 days. [facility] 07-05-2024 Consult note Associated Order (s): Inpatient consult to Endovascular Neurology--[facility] Inpatient consult to Endovascular Neurology--[facility] Consult performed by: Helga Naik APRN - [facility] Consult ordered by: Wm Nunes DO [...] kidney disease, COPD (chronic obstructive pulmonary disease) ([facility]), DVT (deep venous thrombosis) ([facility]), Essential hypertension (03/07/2020), GERD (gastroesophageal reflux disease), Hiatal hernia, IBS (irritable bowel syndrome), Pure hypercholesterolemia (03/07/2020), PVD (peripheral vascular disease) ([facility]), and Stroke ([facility]). She has no past medical history of Cancer (CMS/HCC) ([facility]), Cerebral artery occlusion with cerebral infarction ([facility]), CHF (congestive heart failure) ([facility]), Diabetes mellitus ([facility]), Hemodialysis patient ([facility]) ([facility]), blood clots, or MDRO (multiple drug resistant [...] resp. rate 14, height 1.626 m (5' 4), weight 72.6 kg (160 lb), SpO2 97%. [...] ., . Personal review of: Imaging,Labs,Old Records},.},. [email or web address] Phone: 07-05-[address] Carlson at bedside [facility] 07-05-2024 Emergency department Note Patient is returning back to room 32 at this time with Jose, Medic. [facility] 07-05-2024 Emergency department Note Pt currently at eye clinic with RADHA Hinkle for emergent eye laser procedure. [facility] 07-05-2024 Note Pt currently at eye clinic with RADHA Hinkle for emergent eye laser procedure. [facility] 07-05-2024 Emergency department Note Pt emergently going to eye clinic. Pt being transported in wheelchair with trauma float RADHA Hinkle and Maritza FRAGA Pt being transported on zoll monitor and acls kit. [facility] 07-05-2024 Emergency department Note Ophthalmology at bedside [facility] 07-05-2024 Emergency department Note Report to Maritza FRAGA [facility] 07-05-2024 Consult note Associated Order (s): IP CONSULT TO STROKE TEAM STROKE TEAM NOTE Patient Name: Mel Pop Patient : 1940 Acct: [id number] Date of Admission: 07/05/2024 Room/Bed: 60/60 PCP: [...] Historical Provider, ergocalciferol (Vitamin D2) 1.25 MG (37073 UT) capsule Take 1.25 mg by mouth [...] 5 MG tablet Take as directed by [facility] Anticoagulation Clinic (90 tablets = 90 [...] , Rfl: ergocalciferol (Vitamin D2) 1.25 MG (11068 UT) capsule, Take 1.25 mg by mouth [...] 5 MG tablet, Take as directed by [facility] Anticoagulation [facility] (90 tablets = 90 [...] reflex present -X Palate:intact -XI Shoulder shrug: intactnormal -XII Tongue movement: normal Funduscopic Exam: normal, [...] - 5.20 mg/dl No results for input(s): PH, PO2, PCO2, HCO3, O2SAT in the last 72 hours. No lab exists for component: BE No results for input(s): INR in the last 72 hours. Radiology: CT [...] 4:46 AM EST. Report Dictated on Workstation: [employer] Electronically Signed By: Cirilo Ray DR Electronically [...] 4:46 AM EST. Report Dictated on Workstation: [employer] Electronically Signed By: Cirilo Ray DR Electronically [...] to be involved in this patient's care. [employer] Phone: 07-05-2024 Physician Emergency department Note Emergency Department Encounter Location: [facility] EMERGENCY DEPT Patient: Mel Pop : [...] 423 ms QTC Interval 418 ms P [place] 0 degrees QRS [place] 37 degrees T Wave [place] 29 degrees AL Interval 0 ms Troponin, High Sensitivity, Serial, [...] Given 07/05/24 0517) I am not the market asset protection manager of record. Dr. Nunes is the market asset protection manager of record. Final Impression 1. Vision loss of right eye 2. Acute intractable headache, unspecified headache type DISPOSITION Observation 07/05/2024 01:21:52 PM (Please note that portions of this note may have been completed with a voice recognition program. Efforts were made to edit the dictations but occasionally words are mis-transcribed.) Jhonatan Hernandez MD [employer] Jhonatan Hernandez MD 07/05/24 1322 [facility] 06-19-2024 Note HNO ID: [id number] Author: JOSE GONZALEZ [facility] ED Service: Pharmacy Author Type: Pharmacist Type: Plan [...] with neuroendovascular for ICA aneurysm Jose Gonzalez [facility] ED Pager: Nora/Hailey cervantes 06/19/2024 1:31 PM Medication [...] ELLIPTA 100-62.5-25 mcg inhalation powder Generic drug: cwocpevfifu-tctsxpqsa-[id number] VITAMIN C 500 mg tablet Generic drug: [...] as: COUMADIN zinc oxide 20 % ointment [facility] 06-19-2024 Note HNO ID: [id number] Author: ROSLYN ROSE RN Service: Care Management Author Type: Registered Nurse Type: Care Mgt Progress Note Filed: 06/19/2024 13:11 Note Text: CARE MANAGEMENT DISCHARGE NOTE SERVICE DATE: June 19, 2024 SERVICE TIME: 1:10 PM Admission Date: 06/10/2024 LOS: 8 days Discharge Arrangement Discharge Arrangement: Acute Rehabilitation Facility Services Arranged Provider Name: [facility] Caregiver Assessment Caregiver is ready, willing and able to meet the patient's needs as recommended by the inter-professional team: Yes Name of Caregiver: Taylor Muir Transportation Arrangements Transportation Arrangements: Ambulance Transportation Agency and Phone #:: [facility] ) [phone] / [phone] Date of Trip: 06/19/24 Time of Trip: 1800 Type of Service: BLS Non-emergency Electroformer Location: [facility] Destination: [facility] Financial Care Management Responsibility: None Handoff Communication: Handoff to: Specialty Breaker Oiler Specialty Breaker Oiler [facility] Additional Information: Patient has insurance precert and is discharging to [facility] today via [facility] at 6:00 PM. Spoke with patient at bedside and son José Migeul via phone who are aware and agreeable. Transfer envelope with chart. Care team aware via [employer] chat. Discharge Information Row Name ED to Hosp-Admission (Current) from 06/10/2024 in [place] [address] NEURO/CARD Rehab Facility Agency [facility] SIGNATURE: Roslyn Rose RN PATIENT NAME: Mel Castillo DATE: June 19, 2024 TIME: 1:10 PM CONTACT #: [phone] [facility] 06-19-2024 Note HNO ID: [id number] Author: DON EDWARDS DO Service: Hospital Medicine Author Type: Physician Type: Progress Notes Filed: 06/19/2024 12:53 Note Text: DEPARTMENT OF HOSPITAL MEDICINE PROGRESS NOTE SERVICE DATE: 06/19/2024 SERVICE TIME: 10:10 AM Hospital Medicine/Primary Attending: Don Edwards DO NIGHT AND WEEKEND COVERAGE: JENNIE COVERAGE: From 7am - 7pm, please call [phone] After 7pm, please call cross cover pager #[phone] Subjective INTERVAL HPI: Pt seen and examined. EPIC reviewed. Diarrhea yest morning. None documented yesterday afternoon, evening. No further episodes of diarrhea. Ready to go! MEDICATIONS: Reviewed Objective PHYSICAL EXAM: BP 146/61 Pulse 61 Temp (Src) 97.9 (Oral) Resp 18 Ht 5' 4 (1.63m) Wt 152 lb 1.9 oz (69.0kg) [...] 22 Gauge -- days Peripheral 06/12/24 0427 [facility] Short Right Forearm 20 Gauge 7 days Reviewed lines and needs to be continued: REASONS: Difficulty in obtaining/maintaining access DATA: Diagnostic tests reviewed for today's visit: Most recent labs and imaging results. 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 [place]. Will need to follow up with neurology [...] -- 06/11/24 0730 vte current anticoag therapy ([place] 06/11/24 0730 activity - mobilize patient ([place] VTE Prophylaxis: VTE prophylaxis appropriate Disposition: Acute Rehab Plan of care discussed with: Provider, RN, Patient SIGNATURE: Don Edwards DO PATIENT NAME: Mel Castillo DATE: June 19, 2024 TIME: 10:10 AM etx [id number] [facility] 06-18-2024 Note HNO ID: [id number] Author: ANABEL VEGA, Mabel Service: Care Management Author Type: ? Type: Care Mgt Progress Note Filed: 06/18/2024 17:18 Note Text: [facility] PRECERT NOTE [employer] MEDICARE PPO approved Inpatient Rehab Facility for [facility]. Precert approved for dates: - 06/26/2024. For any additional questions regarding approvals, transport or care management needs, please contact the CM assigned to this patient in the Treatment Team. SIGNATURE: Anabel Vega DATE: June 18, 2024 TIME: 5:17 PM [facility] 06-18-2024 Note HNO ID: [id number] Author: MARK MINOR DO Service: Hospital Medicine Author Type: Physician Type: Progress Notes Filed: 06/18/2024 16:17 Note Text: DEPARTMENT OF HOSPITAL MEDICINE PROGRESS NOTE SERVICE DATE: 06/18/2024 SERVICE TIME: 4:06 PM Hospital Medicine/Primary Attending: Mark Minor DO NIGHT AND WEEKEND COVERAGE: After 7pm please page [phone] SUBJECTIVE: Patient seen examined at bedside. No new acute complaints or concerns reported, no events reported overnight. This morning has had diarrhea with 5 episodes prior to lunchtime no further episodes since lunch. Denies any abdominal pain. OBJECTIVE: PHYSICAL EXAM: BP 156/62 Pulse 61 Temp (Src) 98.9 (Oral) Resp 17 Ht 5' 4 (1.63m) Wt 152 lb 1.9 oz (69.0kg) [...] MPV 10.0 Coags: No results for input(s): PT, INR, APTT in the last 24 hours. BMP: Recent [...] 10 Cardiac Enzymes: No results for input(s): CK, MB, CKMB, TROPT in the last 24 hours. Liver Function, Amylase, Lipase: Recent Labs 06/18/24 0600 TPROT 6.0* ALB 3.5* ALT 16 AST 20 ALKPHOS 80 TBILI 0.3 MG/PHOS: Recent Labs 06/18/24 0600 MG 1.9 Renal Panel: Recent Labs 06/18/24 0600 CREAT 0.96 BUN 22* GLUC 112* CA 8.9 CHLOR 110* K 4.4 CO2 21* NA 141 Heme: No results for input(s): RETICP, ABSRETIC, LD, MIKALA, FE, TIBC,TRANSFERSAT in the last 24 hours. No results found for: UALBCR Assessment/Plan This is a 83 year old female with: #Diarrhea-5 episodes today none since noon -Monitor-if continues to have a need to send for stool studies/c.dif -Hold laxatives #Acute embolic stroke with subtherapeutic INR and cardiac mass: lovenox weight based BID as patient has had clots on eliquis in past and now event with subtherapeutic coumadin. [place]. Will need to follow up with neurology [...] Yes) Chronic atrial (more content not included)... [facility] 06-18-2024 Note HNO ID: [id number] Author: ROSLYN ROSE RN Service: Care Management Author Type: Registered Nurse Type: Care Mgt Progress Note Filed: 06/18/2024 12:32 Note Text: CARE MANAGEMENT PROGRESS NOTE SERVICE DATE: 06/18/2024 SERVICE TIME: 9:01 AM LOS: 7 days Chart reviewed. Insurance precert is pending for [facility]. Will need precert and cot transport. CM to follow for transitional care planning. ADDENDUM at 10:20 AM- Spoke with patient at bedside and provided update on pending precert. Received message from [facility] that insurance is requesting updated PT/OT evals and notified therapy. SIGNATURE: Roslyn Rose RN PATIENT NAME: Mel Castillo DATE: June 18, 2024 TIME: 9:01 AM PAGER/CONTACT #: [phone] [facility] 06-17-2024 Note HNO ID: [id number] Author: DON EDWARDS DO Service: Hospital Medicine Author Type: Physician Type: Progress Notes Filed: 06/17/2024 13:52 Note Text: DEPARTMENT OF HOSPITAL MEDICINE PROGRESS NOTE SERVICE DATE: 06/17/2024 SERVICE TIME: 11:15 AM Hospital Medicine/Primary Attending: Don Edwards DO NIGHT AND WEEKEND COVERAGE: [place] COVERAGE: From 7am - 7pm, please call [phone] After 7pm, please call cross cover pager #[phone] Subjective INTERVAL HPI: Pt seen and examined. EPIC reviewed. Dizziness still about the same. Angry about not being discharged yet. MEDICATIONS: Reviewed Objective PHYSICAL EXAM: BP 178/84 Pulse 61 Temp (Src) 96.2 (Oral) Resp 19 Ht 5' 4 (1.63m) Wt 152 lb 1.9 oz (69.0kg) [...] 22 Gauge -- days Peripheral 06/12/24 0427 [facility] Short Right Forearm 20 Gauge 5 days [...] now event with subtherapeutic coumadin. [place] Will need to follow up with neurology [...] -- 06/11/24 0730 vte current anticoag therapy ([place]) 06/11/24 0730 activity - mobilize patient ([place] VTE Prophylaxis: VTE prophylaxis appropriate Disposition: Acute Rehab Plan of care discussed with: Provider, RN, Patient SIGNATURE: Don Edwards DO PATIENT NAME: Mel Castillo DATE: June 17, 2024 TIME: 11:15 AM etx [id number] [facility] 06-16-2024 Note HNO ID: [id number] Author: DON EDWARDS DO Service: Hospital Medicine Author Type: Physician Type: Progress Notes Filed: 06/16/2024 13:06 Note Text: DEPARTMENT OF HOSPITAL MEDICINE PROGRESS NOTE SERVICE DATE: 06/16/2024 SERVICE TIME: 11:00 AM Hospital Medicine/Primary Attending: Don Edwards DO NIGHT AND WEEKEND COVERAGE: [place] COVERAGE: From 7am - 7pm, please call [phone] After 7pm, please call cross cover pager #[phone] Subjective INTERVAL HPI: Pt seen and examined. EPIC reviewed. Still with dizziness when she moves her head certain ways. And speech is still off. Slurred and sometimes things come out wrong. She is waiting for rehab and hoping it will be today. MEDICATIONS: Reviewed Objective PHYSICAL EXAM: BP 174/70 Pulse 59 Temp (Src) 97.5 (Oral) Resp 17 Ht 5' 4 (1.63m) Wt 152 lb 1.9 oz (69.0kg) [...] 22 Gauge -- days Peripheral 06/12/24 0427 [facility] Short Right Forearm 20 Gauge 4 days Drain Duration Indwelling Urinary Catheter 06/11/24 1535 [facility] Ceballos 16 Fr 4 days Reviewed lines and needs to be continued: REASONS: Difficulty in obtaining/maintaining access DATA: Diagnostic tests reviewed for today's visit: Most recent labs and imaging results. 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 [place] Will need to follow up with neurology [...] -- 06/11/24 0730 vte current anticoag therapy ([place]) 06/11/24 0730 activity - mobilize patient ([place] VTE Prophylaxis: VTE prophylaxis appropriate Disposition: Acute Rehab Plan of care discussed with: Provider, RN, Patient SIGNATURE: Don Edwards DO PATIENT NAME: Mel Castillo DATE: June 16, 2024 TIME: 11:00 AM etx [id number] [facility] 06-15-2024 Note HNO ID: [id number] Author: ERA TELLES MD Service: Hospital Medicine [...] (Src) 97.5 (Oral) Resp 17 Ht 5' 4 (1.63m) Wt 152 lb 1.9 oz (69.0kg) [...] on oxygen Plan for acute rehab at [place] [facility] able to accept. Await precert Plan of care discussed with: Provider, RN, Patient. SIGNATURE: Era Telles MD PATIENT NAME: Mel Castillo DATE: June 15, 2024 TIME: 2:40 PM PAGER: [facility] 06-15-2024 Note HNO ID: [id number] Author: ISHAN October,N.NON PROFIT FINANCIAL CONTROLLER Service: Urology Author Type: Nurse Practitioner Type: Plan of Care Filed: 06/15/2024 12:16 Note Text: Urology Plan of Care Note RN reached out asking about a void trial today. Notes pt has bloody urine. Pt seen at bedside. Pt eating lunch. Vanessa urine in tubing at this time. Will place PRN irrigation orders if urine is bloody again. Page urology resident orthopaedic surgeon if urine is grade 4 or higher. Plan was to void trial prior to [place]. Pt currently states she is unsure when [...] Ariana Mercer APRN 06/15/2024 12:11 PM Page orthopaedic surgeon resident with questions [facility] 06-15-2024 Note HNO ID: [id number] Author: ROSLYN ROSE RN Service: Care Management Author Type: Registered Nurse Type: Care Mgt Progress Note Filed: 06/15/2024 09:38 Note Text: CARE MANAGEMENT PROGRESS NOTE SERVICE DATE: 06/15/2024 SERVICE TIME: 9:36 AM LOS: 4 days Chart reviewed. [facility] Will need precert and cot transport. Will place transfer envelope with chart that has signed portable DNR form attached. CM to follow for transitional care planning. SIGNATURE: Roslyn Rose RN PATIENT NAME: Mel Castillo DATE: June 15, 2024 TIME: 9:36 AM PAGER/CONTACT #: [phone] [facility] 06-14-2024 Note HNO ID: [id number] Author: JENNIFER FERNANDEZ RN Service: Nursing Author Type: Registered Nurse Type: Nursing Progress Note Filed: 06/14/2024 17:35 Note Text: 1610: paged urology for voiding trial awaiting response [facility] 06-14-2024 Note HNO ID: [id number] Author: ERA TELLES MD Service: Hospital Medicine Author Type: Physician Type: Progress Notes Filed: 06/14/2024 14:57 Note Text: INPATIENT PROGRESS NOTE CHIEF COMPLAINT: vertigo, R shoulder pain INTERVAL HPI: Pt c/o pain in her right shoulder . Still with dizziness on sitting up/walking No GABRIEL No fever/chills PHYSICAL EXAM: BP 141/70 Pulse 64 Temp (Src) 98.8 (Oral) Resp 18 Ht 5' 4 (1.63m) Wt 152 lb 1.9 oz (69.0kg) [...] on oxygen Plan for acute rehab [place] [facility] able to accept. Await precert Plan of care discussed with: Provider, RN, Patient. SIGNATURE: Era Telles MD PATIENT NAME: Mel Castillo DATE: June 14, 2024 TIME: 2:47 PM PAGER: [facility] 06-13-2024 Note HNO ID: [id number] Author: EDIE CASTAÑEDA MD Service: Hospital Medicine Author Type: Physician Type: Progress Notes Filed: 06/13/2024 14:18 Note Text: DEPARTMENT OF HOSPITAL MEDICINE Hospital Medicine/Primary Attending: Edie Castañeda MD NIGHT AND WEEKEND COVERAGE: After 7pm please page [phone] MEDICATIONS: Current Facility-Administered Medications Medication Dose Route [...] visit: Lab data: CBC: Recent Labs 06/13/2413606/12/2435006/11/24 1353 06/10/24 2330 WBC 4.79 5.17 7.45 [...] 0450 06/12/24 03506/11/24202106/11/24 1353 06/10/24 2330 APTT 51.3* 89.0* 56.1* 79.0* 123.9* 117.3* 28.2 28.9 -- INR -- -- -- -- -- -- -- 1.2 1.3 BMP: Recent Labs 06/13/2413606/12/24 0351 06/10/24 2330 GLUC 95 109* 157* NA 136 [...] 0-5 /HPF CARDIAC: No results for input(s): PBNP in the last 168 hours. Problem List [...] (Src) 99 (Oral) Resp 16 Ht 5' 4 (1.63m) Wt 152 lb 1.9 oz (69.0kg) SpO2 93% BMI 26.10 kg/(m2). O2 Therapy: Room Air Follow up : Pt seen and examined. She reports right arm/shoulder pain and dizziness/vertigo with head movements and sitting up. She called her daughter in a panic this morning stating she was ready to give up but she is feeling better now. Tolerating [...] interatrial septum. Patient sees Dr. Padilla at [facility]. Cardiology saw patient in hospital, recommended Lovenox at discharge for lifelong. 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 Continue heparin drip. Will transition to therapeutic lovenox tonight (discussed patel and affordability with patient, lin (more content not included)... [facility] 06-13-2024 Note HNO ID: [id number] Author: CARLYLE GUZMÁN RN Service: Care Management Author Type: Registered Nurse Type: Care Mgt Progress Note Filed: 06/13/2024 13:00 Note Text: CARE MANAGEMENT PROGRESS NOTE SERVICE DATE: 06/13/2024 SERVICE TIME: 12:54 PM LOS: 2 days Needs Prior to Discharge: To Be Determined;Precertification;Discha rge Transportation [facility] and copy placed in patient's chart. Spoke with the patient and CHERYL Stokes about accepting facilities. [facility] is [facility]. Precert started for [facility]. Cot transport is on standby. Will to continue to follow for transitional care planning. SIGNATURE: Carlyle Guzmán RN PATIENT NAME: Mel Castillo DATE: June 13, 2024 TIME: 12:54 PM PAGER/CONTACT #: [phone] [facility] 06-12-2024 Note HNO ID: [id number] Author: SHARONA MCDERMOTT MD Service: Hospital Medicine [...] 1156 06/12/24 0450 06/12/24 0351 06/11/24202106/11/24 1353 06/10/242329 APTT 79.0* 123.9* 117.3* 28.2 [...] 0-5 /HPF CARDIAC: No results for input(s): PBNP in the last 168 hours. Problem List [...] (Src) 97.9 (Oral) Resp 18 Ht 5' 4 (1.63m) Wt 152 lb 8.9 oz (69.2kg) [...] interatrial septum. Patient sees Dr. Padilla at [facility]. Cardiology saw patient in [...] COPD Smoker Not (more content not included)... [facility] 06-12-2024 Note HNO ID: [id number] Author: DEBORAH PEACE RN Service: Care Management Author Type: Registered Nurse Type: Care Mgt Progress Note Filed: 06/12/2024 16:10 Note Text: CARE MANAGEMENT PROGRESS NOTE SERVICE DATE: 06/12/2024 SERVICE TIME: 4:09 PM LOS: 1 day [place] of Choice Given: Yes Level of Care Discussed: Inpatient Rehab Facility Financial Disclosure Provided: Yes Provider List: Rehab Facility Provider list within the patient's requested geographic area shared with the patient/family: Yes within: 15 miles of zip code: [address] Quality and resource use metrics shared with the patient that are relevant to the patient's goals of care and treatment preferences:: Yes Spoke with pt about pt/ot recs for acute rehab, pt agreeable to list , [facility] but pt would like to discuss acute rehab with her ; referral sent to [facility] SIGNATURE: Deborah Peace RN PATIENT NAME: Mel Castillo DATE: June 12, 2024 TIME: 4:09 PM PAGER/CONTACT #: [phone] [facility] 06-12-2024 Note HNO ID: [id number] Author: ANDREEA KING LSW Service: Care Management Author Type: Property Portfolio Officer Type: Care Mgt Progress Note Filed: 06/12/2024 [...] 12, 2024 TIME: 3:20 PM PAGER/CONTACT #: [phone] [facility] 06-11-2024 Note HNO ID: [id number] Author: CARLYLE GUZMÁN RN Service: Care Management [...] Home Advance Directives Current Advance Directive: None [employer] Attempted to Assist with AD Completion: Yes [...] General wellness, Be able to go home [place] Explained: [place] of [place] Given: No Reason Not Given: [...] family who said 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 +PCP, +DME, +RX coverage, family to provide DC transportation. Will to continue to follow for transitional care planning. SIGNATURE: Carlyle Guzmán RN PATIENT NAME: Mel Castillo DATE: June 11, 2024 TIME: 3:41 PM CONTACT #: [phone] [facility] 06-11-2024 Note Spoke with Melany Evans's office and she stated that patient is scheduled in their office tomorrow, 06/12 for INR check. I faxed her out last progress note. I will inactivate patient from our service. [facility] 05-21-2024 History of Present illness Narrative INR reported on by Christin with [facility]. Christin can be reached at [phone] with questions. Images from the original note were not included. [facility] Anticoagulation Management Service ([facility]) Anticoagulation Clinic [address] [place] [address], [address], [place] [id number] Subjective HPI Mel (1940) had INR completed [...] PharmD, BCACP, CACP documented in this encounter [facility] 05-09-2024 History of Present illness Narrative Graciela from [facility] called in results. Images from the original note were not included. [facility] Anticoagulation Management Service ([facility]) Anticoagulation Clinic [address] [place] [address], [address], [place] [address] Megan Choi (1940) had INR completed by [...] back method. Time spent 10 Minutes STEFFEN Perez PharmD, BCPS documented in this encounter [facility] 05-01-2024 History of Present illness Narrative Tia- [facility]- [phone] Images from the original note were not included. [facility] Anticoagulation Management Service ([facility]) Anticoagulation Clinic [address] [place] [address], [address], [place] [id number] Subjective HPI Mel (1940) had INR completed [...] Tolbert, BCACP, CACP documented in this encounter [facility] 04-27-2024 Telephone encounter Note Pt requested refill on warfarin 5mg. Sent to [facility]. Receipt confirmed by pharmacy. [facility] 04-27-2024 Miscellaneous Notes Pt requested refill on warfarin 5mg. Sent to [facility]. Receipt confirmed by pharmacy. documented in this encounter [facility] 04-25-2024 History of Present illness Narrative [...] any significant pain. She is following with [facility] clinic for Warfarin, switched from Eliquis. [...] tablet (5mg) on 04/15 Follow up with [facility] pharmacy for further dosing 04/13/24 Jordin [...] min Stress: No Stress Concern Present (04/04/2024) [employer] [employer] - Occupational Stress Questionnaire Feeling of Stress : Not at all Social Connections: Moderately Isolated (04/04/2024) Social Connection and Isolation Panel [NHANES] Frequency of Communication with Friends and Family: More than three times a week Frequency of Social Gatherings with Friends and Family: More than three times a week Attends [employer] Services: 1 to 4 times per year [...] 56.1 (A) 04/16/2024 No results found for: VLDL Physical Exam Vitals reviewed. Constitutional: Appearance: Normal [...] thrombectomy -Recovering well -Recommend continuing warfarin per [facility] clinic -Continue to elevate as needed. [...] (around 07/26/2024). . documented in this encounter [facility] 04-19-2024 History of Present illness Narrative Garciela with [facility] reports INR on vm Graciela can be reached at [phone] with any questions. Images from the original note were not included. [facility] Anticoagulation Management Service ([facility]) Anticoagulation Clinic [address] [place] [address], [address], [place] [address] Subjective TYSON Rizoda (1940) had INR completed by homecare, visit [...] and then she is not buying anymore (she feels too good). Any falls or head trauma: no Any [...] Perez, PharmD, BCPS documented in this encounter [facility] 04-14-2024 History of Present illness Narrative Placed new order for POCT INR, [facility] had not received. documented in this encounter [facility] 04-14-2024 Miscellaneous Notes Addended by: PATTY DUGGAN on: 04/16/2024 07:01 AM Modules accepted: Orders Addended by: HARMONY GREY on: 04/16/2024 08:41 AM Modules accepted: Orders documented in this encounter [facility] 04-14-2024 Note Addended by: PATTY DUGGAN on: 04/16/2024 07:01 AM Modules accepted: Orders [facility] 04-14-2024 Note Addended by: HARMONY GREY on: 04/16/2024 08:41 AM Modules accepted: Orders [facility] 04-14-2024 Note Addended by: PATTY DUGGAN on: 04/16/2024 07:01 AM Modules accepted: Orders [facility] 04-14-2024 Note Addended by: HARMONY GREY on: 04/16/2024 08:41 AM Modules accepted: Orders [facility] 04-14-2024 Note Addended by: PATTY DUGGAN on: 04/16/2024 07:01 AM Modules accepted: [facility] 04-14-2024 Note Addended by: HARMONY GREY on: 04/16/2024 08:41 AM Modules accepted: [facility] 04-13-2024 Nurse Note AVS explained. Discharged patient on stable condition. [facility] 04-13-2024 Nurse Note AVS explained. Discharged patient on stable condition. Instructed patient on warfarin dosing, she will take 7.5mg tomorrow, and 5mg Tuesday, and then we will check INR with home care on Tuesday as instructed. NO changes to heparin infusion at this time. documented in this encounter [facility] 04-13-2024 Nurse Note Instructed patient on warfarin dosing, she will take 7.5mg tomorrow, and 5mg Tuesday, and then we will check INR with home care on Tuesday as instructed. [facility] 04-13-2024 Note Formatting of this n ote might be different from the original. Phone conversation with the patient at their request from the [facility] regarding her established home care. Patient was wondering what services were being provided and what expectations to have for [facility]. I explained her current ordered services and she stated she understood. Patient then asked if she could have meals delivered. I explained I would reach out to her social insurance adviser here at the hospital for further guidance on resources when she gets home. Secure chat sent to KEESHA Basilio regarding this. [facility] 04-13-2024 Note Formatting of this n ote might be different from the original. Phone conversation with the patient at their request from the [facility] regarding her established home care. Patient was wondering what services were being provided and what expectations to have for [facility]. I explained her current ordered services and she stated she understood. Patient then asked if she could have meals delivered. I explained I would reach out to her social insurance adviser here at the hospital for further guidance on resources when she gets home. Secure chat sent to KEESHA Basilio regarding this. [facility] 04-13-2024 Miscellaneous Notes Phone conversation with the patient at their request from the [facility] regarding her established home care. Patient was wondering what services were being provided and what expectations to have for [facility]. I explained her current ordered services and she stated she understood. Patient then asked if she could have meals delivered. I explained I would reach out to her social insurance adviser here at the hospital for further guidance on resources when she gets home. Secure chat sent to KEESHA Basilio regarding this. Images from the original note were not included. Care Management Progress Note INR 2.3 today. Hep drip continued, plan to DC to [facility] today. Plan to have PT seen patient today per her request. Patient is active with [facility]. Await treatment plan and clinical progress. vitamin manager will continue to follow for transitional [...] AM hep gtt- transitioning to coumadin, INR 2.3 04/13/2024 Cathi Avila RN 04/12/2024 8:02 AM hep gtt- transitioning to coumadin, INR 1.9 04/11/2024 Cathi Avila RN 04/11/2024 8:03 AM 04/11/2024 Cathi Avila RN 04/10/2024 8:41 AM hep gtt- transitioning to coumadin 04/10/2024 Virginia Rehman RN 04/09/2024 8:13 AM 04/08/2024 Virginia Rehman RN 04/06/2024 8:13 AM hep gtt, poss thrombectomy 04/07/2024 Virginia Rehman RN 04/05/2024 8:03 AM hep gtt, poss thrombectomy tomorrow 04/06/2024 Virginia Rehman RN 04/04/2024 8:48 AM hep gtt, oliva lower US, vasc consult 04/06/2024 Bernie Cutler APRN - NON PROFIT FINANCIAL CONTROLLER 04/04/2024 4:04 AM 04/06/2024 Bernie Cutler APRN - NON PROFIT FINANCIAL CONTROLLER 04/03/2024 11:17 PM Length of Stay (Days): [...] discharge. Await treatment plan and clinical progress. vitamin manager will continue to follow for transitional care needs for discharge planning. Discharge Milestones and Delays Expected date/time: 04/13/2024 Expected discharge disposition: Home Health Services Discharge Milestones Place discharge order Complete med reconciliation Case mgmt discharge readiness Clinical Stability Diagnostic Workup Solution Consultant Recommendations Facility Choice Selection Imaging Results PT discharge readiness OT discharge readiness Patient Education Complete Expected Discharge History Expected Date/Time Set By Reviewed At 04/13/2024 Cathi Avila RN 04/12/2024 8:02 AM hep gtt- transitioning to coumadin, INR 1.9 04/11/2024 Cathi Avila RN 04/11/2024 8:03 AM 04/11/2024 Cathi Avila RN 04/10/2024 8:41 AM hep gtt- transitioning to coumadin 04/10/2024 Virginia Rehman, RADHA 04/09/2024 8:13 AM 04/08/2024 Virginia Rehman, RADHA 04/06/2024 8:13 AM hep gtt, poss thrombectomy 04/07/2024 Virginia Rehman, RADHA 04/05/2024 8:03 AM hep gtt, poss thrombectomy tomorrow 04/06/2024 Virginia Rehman RN 04/04/2024 8:48 AM hep gtt, oliva lower US, vasc consult 04/06/2024 SEBASTIAN Herrera CNP 04/04/2024 4:04 AM [...] to oral when appropriate. [facility]- will continue services at discharge. Await treatment plan and clinical progress. vitamin manager will continue to follow for transitional [...] AM hep gtt- transitioning to coumadin, INR 1.9 04/11/2024 Cathi Avila RN 04/10/2024 8:41 AM hep gtt- transitioning to coumadin 04/10/2024 Virginia Rehman RN 04/09/2024 8:13 AM 04/08/2024 Virginia Rehman RN 04/06/2024 8:13 AM hep gtt, poss thrombectomy 04/07/2024 Virginia Rehman RN 04/05/2024 8:03 AM hep gtt, poss thrombectomy tomorrow 04/06/2024 Virginia Rehman RN 04/04/2024 8:48 AM hep gtt, oliva lower US, vasc consult 04/06/2024 SEBASTIAN Herrera CNP 04/04/2024 4:04 AM [...] discharge. Await treatment plan and clinical progress. vitamin manager will continue to follow for transitional care needs for discharge planning. Discharge Milestones and Delays Expected date/time: 04/11/2024 Expected discharge disposition: Home or Self Care Discharge Milestones Place discharge order Complete med reconciliation Case mgmt discharge readiness Clinical Stability Diagnostic Workup Solution Consultant Recommendations Facility Choice Selection Imaging Results Patient Education Complete Expected Discharge History Expected Date/Time Set By Reviewed At 04/11/2024 Cathi Avila RN 04/10/2024 8:41 AM hep gtt- transitioning to coumadin 04/10/2024 Virginia Rehman RN 04/09/2024 8:13 AM 04/08/2024 Virginia Rehman RN 04/06/2024 8:13 AM hep gtt, poss thrombectomy 04/07/2024 Virginia Rehman RN 04/05/2024 8:03 AM hep gtt, poss thrombectomy tomorrow 04/06/2024 Virginia Rehman RN 04/04/2024 8:48 AM hep gtt, oliva lower US, vasc consult 04/06/2024 SEBASTIAN Herrera CNP 04/04/2024 4:04 AM 04/06/2024 SEBASTIAN Herrera CNP 04/03/2024 11:17 PM Length of Stay (Days): 7 GMLOS: 4 Images from the original note were not included. Care Management Progress Note Remains on heparin gtt while transitioning to coumadin. Consult Hemology. Pt active with [facility]- will continue services at discharge. Await treatment plan and clinical progress. vitamin manager will continue to follow for transitional care needs for discharge planning. Discharge Milestones and Delays Expected date/time: 04/10/2024 Expected discharge disposition: Home or Self Care Discharge Milestones Place discharge order Complete med reconciliation Case mgmt discharge readiness Clinical Stability Diagnostic Workup Solution Consultant Recommendations Facility Choice Selection Imaging Results Patient Education Complete Expected Discharge History Expected Date/Time Set By Reviewed At 04/10/2024 Virginia Rehman RN 04/09/2024 8:13 AM hep gtt- transitioning to coumadin 04/08/2024 Virginia Rehman RN 04/06/2024 8:13 AM hep gtt, poss thrombectomy 04/07/2024 Virginia Rehman RN 04/05/2024 8:03 AM hep gtt, poss thrombectomy tomorrow 04/06/2024 Virginia Rehman RN 04/04/2024 8:48 AM hep gtt, oliva lower US, vasc consult 04/06/2024 SEBASTIAN Herrera CNP 04/04/2024 4:04 AM [...] transitioning to coumadin. Pt active with [facility]- will continue services at discharge. Discharge Milestones [...] 04/05/2024 8:03 AM hep gtt, poss thrombectomy tomorrow 04/06/2024 Virginia Rehman RN 04/04/2024 8:48 AM hep gtt, oliva lower US, vasc consult 04/06/2024 SEBASTIAN Herrera CNP 04/04/2024 4:04 AM [...] with completion of Health Care Power of Potato Sorter. One copy placed in patient chart, one copy sent to medical records and two copies given to patient. Requested by patient, while at bedside this SW spoke to patient's son via patients phone to explain that HCPOA was being completed by patient. Patients son José Miguel Castillo ([phone]) agreed to be this patients agent on [...] technique was used to place a 5 Turkish sheath. A Bentson wire was able to be advanced in the inferior vena cava without difficulty. The 5 Turkish sheath was then upsized to a 16 Turkish sheath and the penumbra flash suction thrombectomy device was prepared per engraver hand hard metals's instructions. The patient was also given 5000 units of heparin for systemic anticoagulation at this time. The Penumbra device was then inserted through the 16 Turkish sheath and a suction thrombectomy was performed [...] device was removed as was the 16 Turkish sheath and an 0 silk suture was [...] Blankenship MD Vascular Surgery Date: 04/06/2024 Location: [facility] OR Name: Mel Pop, : 1940, Diagnosis Pre-op Diagnosis * Right leg DVT (HCC) [I82.401] Post-op Diagnosis * Right leg DVT (HCC) [I82.401] Procedures RIGHT LOWER EXTREMITY VENOUS MECHANICAL THROMBECTOMY 93599 - AL PRQ TRANSLUMINAL MECHANICAL THROMBECTOMY VEIN Surgeons * Kristyn Blankenship - Primary Procedure Summary Anesthesia: General ASA: III Estimated Blood Loss: 300 mL Drains: * None in log * Staff: Sweater Designer: Negrita lEizabeth RN; Amira Burton RN Scrub Person: Linnette [...] home alone- indep and active with [facility]- will return. Discharge Milestones and Delays Expected date/time: 04/07/2024 Expected discharge disposition: Home or Self Care Discharge Milestones Place discharge order Complete med reconciliation Case mgmt discharge readiness Clinical Stability Diagnostic Workup Facility Choice Selection Patient Education Complete Expected Discharge History Expected Date/Time Set By Reviewed At 04/07/2024 Virginia Rehman RN 04/05/2024 8:03 AM hep gtt, poss thrombectomy tomorrow 04/06/2024 Virginia Rehman RN 04/04/2024 8:48 AM hep gtt, oliva lower US, vasc consult 04/06/2024 Bernie Cutler APRN - NON PROFIT FINANCIAL CONTROLLER 04/04/2024 4:04 AM 04/06/2024 Bernie Cutler APRN [...] Limits Permission given to speak with patient containers sales representative/caregiver as indicated: Confirmation of Payer with patient/family: Yes Payer Name: humana [place]: No Confirmation of Primary Care Physician: Confirmed [...] Home Health Services Care Services Provider Name: [facility] Dialysis Type: NA Durable Medical Equipment: [...] home alone and indep. Pt active with [facility]- liaison following for continued services. Pt uses walker/cane at baseline. Pt has insurance, PCP and able to obtain meds. Pt's friends help with transportation. No needs antic at discharge. Virginia Rehman RN Start PACC Note Home Health Referral Educated patient on Home Care and services available. Patient offered choice of available HHC and agreeable to SN/PT services with [facility] - [facility] Care. Care [...] is noted as yes - consider a BAGGAGE AND MAIL AGENT evaluation once the patient returns home. START PATIENT REGISTRATION INFORMATION Order Information Order Signing Physician: Robert Vigil MD Service Ordered RN ?: Yes Service Ordered PT ?: Yes Service Ordered OT ?: No Service Ordered ST ?: No Service Ordered BAGGAGE AND MAIL AGENT?:No Service Ordered TELEMARKETING REPRESENTATIVE?: No Following Physician: Jared Evans MD Following Physician Overseeing Physician: Jared Evans MD (Required for Residents only) Agreeable to Follow? Yes Date/Time of Call 04/04/24 11:36 AM, Spoke with: Patient is a DEB. Care Coordination Same Day SOC?: No Primary Care Physician: Jared Evans MD Primary Care Physician Primary Care Physician Address: [address] [place] [address] Visit Instructions: N/A Service Discharge Location Type: Home with Home Care Service Facility Name: N/A Service Floor Facility: N/A Service Room No: N/A Demographics Patient Last Name: Jose Alberto Patient First Name: Mel Language/Communication Barrier: none Service Address: [address] [place] [address] [facility] Service City: [place] Service ST: [place] Service ZIP: [address] Service Other phone numbers: Telephone Information: Emergency [...] Caregiver Phone Number: na Caregiver Notes: N/A Activism.com-Finomial List No END PATIENT REGISTRATION INFORMATION Pt [...] therapeutic aptt Patient is currently active with [facility]. The patients current certification period will on 05/18/24. The patient is currently receiving PT services through the agency. Loan Services Professional to continue to follow. ADVANCED CARE PLANNING Mel Pop : 1940 Primary Care Physician: Jared Evans MD The patient and/or family/surrogate voluntarily agreed to participate in ACP services. Patient s cognitive capacity: intact Code Status: [ ] [FULL CODE - Continue all advanced life support: CPR,intubation,invasive procedures] [X] [DNR-CCA - DO NOT do CPR, intubation] [_] [DNR-CROP RESEARCH SCIENTIST - Comfort care only] [_] DNR form [...] patient and/or family/surrogate. Pratibha Avelar DO [facility] 04/04/2024, 5:40 AM The patient [...] barriers include . documented in this encounter [facility] 04-13-2024 Note [facility] 04-13-2024 Hospital course Narrative Discharge Summary Mel Pop : 1940 ADMIT DATE: 04/03/2024 DISCHARGE DATE: 04/13/2024 PRIMARY CARE PHYSICIAN: Jared Evans VISIT STATUS: Admission CODE STATUS: DNR-CCA DISCHARGE DIAGNOSES: Principal Problem: Peripheral arterial disease (HCC) Bilateral lower extremity DVTs RLE thrombectomy HOSPITAL COURSE: 83-year-old woman with history of A-fib on Eliquis, tobacco use, hypertension, hyperlipidemia, asthma, hiatal hernia, GERD presented to [facility] on 04/03 with right leg pain, numbness, tingling causing difficulty ambulating. CTA of lower extremity showed severe atherosclerotic disease with bilateral superficial femoral artery occlusion and transferred to [facility]. She underwent venous thrombectomy with vascular surgery and was initiated on warfarin bridging with heparin. [facility] followed and managed bridging anticoagulation. Pt reported feeling improvement from day to day. Though she was concerned that being stuck in the hospital will debilitate her.Her INR was therapeutic on 04/13. [facility] recommended transition to Warfarin alternating 5mg/7.5mg dosing and close OP follow up for INR check. SIGNIFICANT DIAGNOSTIC STUDIES: BLE Duplex CONSULTANTS: Vascular surgery Pharmacy RECOMMENDED NEXT STEPS: Follow up with [facility] clinic and vascular DISCHARGE MEDICATIONS: Medication [...] tablet (5mg) on 04/15 Follow up with [facility] pharmacy for further dosing CONTINUE taking these medications albuterol 108 (90 Base) MCG/ACT inhaler ascorbic acid 500 MG tablet Commonly known as: Vitamin C lisinopril 5 MG tablet pantoprazole 40 MG EC tablet Commonly known as: ProtoNix Trelegy Ellipta 100-62.5-25 MCG/ACT aerosol powder Generic drug: Fvamzpnwwsi-Ccngnnymy-Sybsuz STOP taking these medications Eliquis 5 MG tablet Generic drug: apixaban Where to Get Your Medications These medications were sent to [facility] [address] [place], [place] [id number] Hours: Tuesday to Tuesday 10 am to 6 pm oxyCODONE 5 MG immediate release tablet warfarin 5 MG tablet DIET: Adult diet Regular ACTIVITY: No restriction. COMPLEXITY OF FOLLOW UP: [x] Moderate Complexity: follow up within 7-14 calendar days (03623) [] Severe Complexity: follow up within 7 calendar days (38518) FOLLOW UP TESTING, PENDING RESULTS OR REFERRALS AT TRANSITIONAL CARE VISIT: [] Yes [x] No PENDING STUDIES: none DISPOSITION: Home with Home Health Care FACILITY/HOME CARE AGENCY NAME: [facility] Follow up with Kristyn Blankenship MD [address] [place] [id number] Schedule an appointment as soon as possible [...] 04/13/2024, 2:20 PM documented in this encounter [facility] 04-13-2024 History of Present illness Narrative Images from the original note were not included. PHYSICAL THERAPY [facility] Treatment Note Name/MRN: Mel Pop ([id number]) Date of : 1940 Age: 83 y.o. [...] Gu PT [facility] Anticoagulation Management Service ([facility]) Inpatient Warfarin Consult HPI: Mel Pop is a 83 y.o. female admitted on 04/03/2024 for Peripheral arterial disease (HCC). Past Medical History: Diagnosis Date Asthma Essential hypertension 03/07/2020 GERD (gastroesophageal reflux disease) Hiatal hernia Pure hypercholesterolemia 03/07/2020 Patient is newly referred to the [facility] clinic for warfarin management. Pt was [...] follow-up upon discharge. Patient is agreeable to [facility] follow up. If discharged today, recommend sending home with 5mg tablets with instructions to take 5mg Tuesday (if not already received in hospital), 7.5mg Tuesday, 5mg Tuesday, and will recheck INR Tuesday via home care. 4. Provided warfarin education. Marybeth Rahman RPh, PharmD [facility] Consult Service is available daily [phone] via [employer] Secure Ge[employer]. If no response, please page [phone]. Hospitalist Progress Note 04/13/2024 Subjective: Admit Date: 04/03/2024 PCP: Jared Evans MD Room#: N4-461/[id number] B BRIEF HOSPITAL COURSE: 83-year-old woman with history of A-fib on Eliquis, tobacco use, hypertension, hyperlipidemia, asthma, hiatal hernia, GERD presented to [facility] on 04/03 with right leg pain, numbness, tingling causing difficulty ambulating. CTA of lower extremity showed severe atherosclerotic disease with bilateral superficial femoral artery occlusion and transferred to [facility]. She underwent venous thrombectomy with vascular surgery and was initiated on warfarin bridging with heparin. [facility] followed and managed bridging anticoagulation. Pt reported feeling improvement from day to day. Though she was concerned that being stuck in the hospital will debilitate her.Her INR was therapeutic on 04/13. [facility] recommended transition to Warfarin alternating 5mg/7.5mg [...] Pure hypercholesterolemia 03/07/2020 LABS: CBC: Recent Labs 04/11/242604/12/2451804/13/24358 WBC 4.5 4.1 4.2 RBC 2.72* 3.06* [...] 3 2* LIVER PROFILE:No results for input(s): AST, ALT, BILITOT, ALKPHOS, PROT in the last 72 hours. No lab exists for component: LABALBU PT/INR: Recent Labs 04/11/242604/12/2451804/13/24358 PROTIME 20.9* 20.3* 24.2* INR 1.9* 1.9* 2.3* CARDIAC ENZYMES: No results for input(s): TROPONINI in the last 72 hours. Procalcitonin: No results found for: PROCAL COVID-19 PCR: No results for input(s): COVID19 in the last 72 hours. Objective: Vitals: BP 154/86 (BP Location: Left arm) Pulse 82 Temp 36 C (96.8 F) Resp 16 Ht 5' 4 (1.626 m) Wt 159 lb 8 oz [...] person, place, and time. Medications: Scheduled PRN Kncndkzogry-Kwtzsslko-Gadivu, 1 puff, Inhalation, Daily influenza, 0.5 mL, [...] 04/13 - 5mg dose warfarin today, 7.5mg 9/28, 5mg 04/15 and follow up with [facility] [...] Extended Emergency Contact Information Primary Emergency Contact: VasuDamaris ferrell Mobile Relation: Friend Secondary Emergency Contact: José Miguel Castillo/ Fidel Mobile Relation: Child Jordin Roldan MD Division of Hospitalist Medicine Acute [facility] Hospitalist Progress Note 04/12/2024 Subjective: Admit Date: 04/03/2024 PCP: Jared Evans MD Room#: N4461/N4-674 B BRIEF HOSPITAL COURSE: 83-year-old woman with history of A-fib on Eliquis, tobacco use, hypertension, hyperlipidemia, asthma, hiatal hernia, GERD presented to [facility] on 04/03 with right leg pain, numbness, tingling causing difficulty ambulating. CTA of lower extremity showed severe atherosclerotic disease with bilateral superficial femoral artery occlusion and transferred to [facility]. She underwent venous thrombectomy with vascular [...] Recent Labs 04/10/24 0601 04/11/24 0027 04/12/24 05 WBC 4.3 4.5 4.1 RBC 2.86* 2.72* 3.06* HGB 8.6* 8.3* 9.3* HCT 26.0* 24.6* 28.3* MCV 90.9 90.4 92.5 RDW 14.7 14.8 14.8 PLT 238 244 307 BMP: Recent Labs 04/10/24 0601 04/11/24 0027 04/12/24 05 NA 136 134* 135 K 3.8 4.0 3.9 CL 111* 108* 108* CO2 21* 22 24 BUN 15 16 16 CREATININE 1.00 1.01 0.99 GLUCOSE 101* 112* 101* CALCIUM 9.0 8.8 9.3 ANIONGAP 3 4 3 LIVER PROFILE:No results for input(s): AST, ALT, BILITOT, ALKPHOS, PROT in the last 72 hours. No lab exists for component: LABALBU PT/INR: Recent Labs 04/10/24 0601 04/11/24 0027 04/12/24518 PROTIME 17.7* 20.9* 20.3* INR 1.6* 1.9* 1.9* CARDIAC ENZYMES: No results for input(s): TROPONINI in the last 72 hours. Procalcitonin: No results found for: PROCAL COVID-19 PCR: No results for input(s): COVID19 in the last 72 hours. Objective: Vitals: BP 135/76 Pulse 80 Temp 36.3 C (97.4 F) (Temporal) Resp 18 Ht 5' 4 (1.626 m) Wt 159 lb 8 oz [...] person, place, and time. Medications: Scheduled PRN Feiwmlcmzra-Yfuentjdm-Tnrcfk, 1 puff, Inhalation, Daily influenza, 0.5 mL, [...] Hospitalist Medicine [facility] Anticoagulation Management Service ([facility]) Inpatient Warfarin Consult HPI: Mel Pop is a 83 y.o. female admitted on 04/03/2024 for Peripheral arterial disease (HCC). Past Medical History: Diagnosis Date Asthma Essential hypertension 03/07/2020 GERD (gastroesophageal reflux disease) Hiatal hernia Pure hypercholesterolemia 03/07/2020 Patient is newly referred to the [facility] clinic for warfarin management. Pt was [...] PharmD [facility] Consult Service is available daily [phone] via [employer] Secure Chat. If no response, please page [phone]. Images from the original note were not included. 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 Cellulitis 05/18/2022 Nicotine use disorder 05/18/2022 Irritable bowel syndrome with diarrhea 03/07/2020 Microscopic hematuria 03/07/2020 Left retinal detachment 03/07/2020 Hyperglycemia 03/07/2020 Osteopenia of left femoral neck 03/07/2020 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 03/07/2020 Seasonal allergies 03/07/2020 Chronic renal insufficiency, stage III (moderate) ([facility]) 03/07/2020 Major depression, single episode, in complete remission ([facility]) 03/07/2020 Gastroesophageal reflux disease without esophagitis 03/07/2020 Essential hypertension 03/07/2020 Pure hypercholesterolemia 03/07/2020 Overweight 03/07/2020 Psoriasis 03/07/2020 History of cerebrovascular accident 03/07/2020 Atrial fibrillation (HCC) 03/07/2020 Chronic obstructive pulmonary disease ([facility]) 03/07/2020 Finger osteomyelitis, right (HCC) 03/06/2020 Medical [...] Responsibilities: Independent Receives Help From: None Active Technical Manager: Yes Prior Level of Function ADL Assistance: [...] to a [facility] Therapy Services Occupational Therapist. Goals and/or treatment plan was established in collaboration with patient/family/other representatives. Hospitalist Progress Note 04/11/2024 Subjective: Admit Date: 04/03/2024 PCP: Jared Evans MD Room#: N4461/[id number] B BRIEF HOSPITAL COURSE: 83-year-old woman with history of A-fib on Eliquis, tobacco use, hypertension, hyperlipidemia, asthma, hiatal hernia, GERD presented to [facility] on 04/03 with right leg pain, numbness, tingling causing difficulty ambulating. CTA of lower extremity showed severe atherosclerotic disease with bilateral superficial femoral artery occlusion and transferred to [facility]. She underwent venous thrombectomy with vascular [...] 3 4 LIVER PROFILE:No results for input(s): AST, ALT, BILITOT, ALKPHOS, PROT in the last 72 hours. No lab exists for component: LABALBU PT/INR: Recent Labs 04/09/24 0153 04/10/2460004/11/24 002 PROTIME 13.8* 17.7* 20.9* INR 1.2* 1.6* 1.9* CARDIAC ENZYMES: No results for input(s): TROPONINI in the last 72 hours. Procalcitonin: No results found for: PROCAL COVID-19 PCR: No results for input(s): COVID19 in the last 72 hours. Objective: Vitals: BP 158/62 (BP Location: Right arm, Patient Position: Sitting) Pulse 101 Temp 36.1 C (96.9 F) (Temporal) Resp 16 Ht 5' 4 (1.626 m) Wt 159 lb 8 oz [...] person, place, and time. Medications: Scheduled PRN Tppocbqjikv-Ukserkqya-Eyzpmz, 1 puff, Inhalation, Daily influenza, 0.5 mL, [...] Hospitalist Medicine [facility] Images from the original note were not included. 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 Cellulitis 05/18/2022 Nicotine use disorder 05/18/2022 Irritable bowel syndrome with diarrhea 03/07/2020 Microscopic hematuria 03/07/2020 Left retinal detachment 03/07/2020 Hyperglycemia 03/07/2020 Osteopenia of left femoral neck 03/07/2020 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 03/07/2020 Seasonal allergies 03/07/2020 Chronic renal insufficiency, stage III (moderate) ([facility]) 03/07/2020 Major depression, single episode, in complete remission ([facility]) 03/07/2020 Gastroesophageal reflux disease without esophagitis 03/07/2020 Essential hypertension 03/07/2020 Pure hypercholesterolemia 03/07/2020 Overweight 03/07/2020 Psoriasis 03/07/2020 History of cerebrovascular accident 03/07/2020 Atrial fibrillation ([facility]) 03/07/2020 Chronic obstructive pulmonary disease ([facility]) 03/07/2020 Finger osteomyelitis, right ([facility]) 03/06/2020 Medical Precautions: No active isolations Proper [...] Raw Score (No Stairs) : 19 [facility] Score: Walked 10 steps or [...] to a [facility] Therapy Services Physical Therapist. Goals and/or treatment plan was established in collaboration with patient/family/other representatives. [facility] Anticoagulation Management Service ([facility]) Inpatient Warfarin Consult HPI: Mel Pop is a 83 y.o. female admitted on 04/03/2024 for Peripheral arterial disease (HCC). Past Medical History: Diagnosis Date Asthma Essential hypertension 03/07/2020 GERD (gastroesophageal reflux disease) Hiatal hernia Pure hypercholesterolemia 03/07/2020 Patient is newly referred to the [facility] clinic for warfarin management. Pt was [...] PharmD [facility] Consult Service is available daily [phone] via [employer]. If no response, please page [phone]. Hospitalist Progress Note 04/10/2024 Subjective: Admit Date: 04/03/2024 PCP: Jared Evans MD Room#: N4-461/N4-461 B BRIEF HOSPITAL COURSE: 83-year-old woman with history of A-fib on Eliquis, tobacco use, hypertension, hyperlipidemia, asthma, hiatal hernia, GERD presented to [facility] on 04/03 with right leg pain, numbness, tingling causing difficulty ambulating. CTA of lower extremity showed severe atherosclerotic disease with bilateral superficial femoral artery occlusion and transferred to [facility]. She underwent venous thrombectomy with vascular [...] 5 3 LIVER PROFILE:No results for input(s): AST, ALT, BILITOT, ALKPHOS, PROT in the last 72 hours. No lab exists for component: LABALBU PT/INR: Recent Labs 04/08/24 0020 04/09/24 0153 04/10/24 0601 PROTIME 11.2 13.8* 17.7* INR 1.0 1.2* 1.6* CARDIAC ENZYMES: No results for input(s): TROPONINI in the last 72 hours. Procalcitonin: No results found for: PROCAL COVID-19 PCR: No results for input(s): COVID19 in the last 72 hours. Objective: Vitals: BP 142/67 (BP Location: Left arm) Pulse 79 Temp 36.7 C (98.1 F) (Temporal) Resp 16 Ht 5' 4 (1.626 m) Wt 159 lb 8 oz [...] Hospitalist Medicine [facility] Nutrition update completed. Chart reviewed. Patient to be monitored and followed by the diet air analysis technician. FADI Farrar [facility] Anticoagulation Management Service ([facility]) Inpatient Warfarin Consult HPI: Mel Pop is a 83 y.o. female admitted on 04/03/2024 for Peripheral arterial disease (HCC). Past Medical History: Diagnosis Date Asthma Essential hypertension 03/07/2020 GERD (gastroesophageal reflux disease) Hiatal hernia Pure hypercholesterolemia 03/07/2020 Patient is newly referred to the [facility] clinic for warfarin management. Pt was [...] PharmD [facility] Consult Service is available daily [phone] via [employer]. If no response, please page [phone]. Hospitalist Progress Note 04/09/2024 Assessment/Plan: Data: (CAT1) [...] asthma, hiatal hernia, GERD who presented to [place] 04/03 with right leg pain, numbness, tingling causing difficulty ambulating. CTA of LE, showing severe LE atherosclerotic disease with bilateral superficial femoral artery occlusion, and was transferred to [facility] for admission. Interval History: Mild shortness [...] 5 LIVER PROFILE: No results for input(s): AST, ALT, BILITOT, ALKPHOS, PROT in the last 72 hours. No lab exists for component: LABALBU PT/INR: Recent Labs 04/07/24 0251 04/08/24 0020 04/09/24 0153 PROTIME 11.1 11.2 13.8* INR 1.0 1.0 1.2* CARDIAC ENZYMES: No results for input(s): TROPONINI in the last 72 hours. Procalcitonin: No results found for: PROCAL COVID-19 PCR: No results for input(s): COVID19 in the last 72 hours. Objective: Vitals: BP (!) 169/82 (BP Location: Left arm, Patient Position: Lying) Pulse 77 Temp 36.6 C (97.9 F) (Temporal) Resp 16 Ht 5' 4 (1.626 m) Wt 159 lb 8 oz [...] Robert Vigil MD Division of Hospitalist Medicine [facility] Anticoagulation Management Service ([facility]) Inpatient Warfarin Consult HPI: Mel F Pop is a 83 y.o. female admitted on 04/03/2024 for Peripheral arterial disease (HCC). Past Medical History: Diagnosis Date Asthma Essential hypertension 03/07/2020 GERD (gastroesophageal reflux disease) Hiatal hernia Pure hypercholesterolemia 03/07/2020 Patient is newly referred to the [facility] clinic for warfarin management. Pt was [...] Will determine if pt is agreeable to [facility] follow-up. 4. Will provide warfarin education. Marybeth Rahman RPh, PharmD [facility] Consult Service is available daily [phone] via [employer] Secure Chat. If no response, please page [phone]. Hospitalist Progress Note 04/08/2024 Assessment/Plan: Data: (CAT1) [...] asthma, hiatal hernia, GERD who presented to [place] 04/03 with right leg pain, numbness, tingling causing difficulty ambulating. CTA of LE, showing severe LE atherosclerotic disease with bilateral superficial femoral artery occlusion, and was transferred to [facility] for admission. Interval History: Pain continues [...] 5 LIVER PROFILE: No results for input(s): AST, ALT, BILITOT, ALKPHOS, PROT in the last 72 hours. No lab exists for component: LABALBU PT/INR: Recent Labs 04/05/24 2307 04/07/24 0251 04/08/24 0020 PROTIME 11.4 11.1 11.2 INR 1.0 1.0 1.0 CARDIAC ENZYMES: No results for input(s): TROPONINI in the last 72 hours. Procalcitonin: No results found for: PROCAL COVID-19 PCR: No results for input(s): COVID19 in the last 72 hours. Objective: Vitals: BP 154/70 (BP Location: Left arm, Patient Position: Sitting) Pulse 76 Temp 36.7 C (98.1 F) (Temporal) Resp 16 Ht 5' 4 (1.626 m) Wt 159 lb 8 oz [...] Robert Vigil MD Division of Hospitalist Medicine [facility] Anticoagulation Management Service ([facility]) Inpatient Warfarin Consult HPI: Mel Pop is a 83 y.o. female admitted on 04/03/2024 for Peripheral arterial disease (HCC). Past Medical History: Diagnosis Date Asthma Essential hypertension 03/07/2020 GERD (gastroesophageal reflux disease) Hiatal hernia Pure hypercholesterolemia 03/07/2020 Patient is newly referred to the [facility] clinic for warfarin management. Pt was [...] PharmD [facility] Consult Service is available daily [phone] via [employer] Secure [employer]. If no response, please page [phone]. Hospitalist Progress Note 04/07/2024 Assessment/Plan: Data: (CAT1) [...] Anticipate DC pending clinical improvement and pain., Solution Consultant recommendations, Coumadin bridge with heparin Total time [...] asthma, hiatal hernia, GERD who presented to [place] 04/03 with right leg pain, numbness, tingling causing difficulty ambulating. CTA of LE, showing severe LE atherosclerotic disease with bilateral superficial femoral artery occlusion, and was transferred to [facility] for admission. Interval History: Pain improved [...] 4 LIVER PROFILE: No results for input(s): AST, ALT, BILITOT, ALKPHOS, PROT in the last 72 hours. No lab exists for component: LABALBU PT/INR: Recent Labs 04/05/24 0739 04/05/24 2307 04/07/24 0251 PROTIME 11.9 11.4 11.1 INR 1.1 1.0 1.0 CARDIAC ENZYMES: No results for input(s): TROPONINI in the last 72 hours. Procalcitonin: No results found for: PROCAL COVID-19 PCR: No results for input(s): COVID19 in the last 72 hours. Objective: Vitals: BP 121/59 (BP Location: Right arm, Patient Position: Sitting) Pulse 65 Temp 36.5 C (97.7 F) (Temporal) Resp 16 Ht 5' 4 (1.626 m) Wt 159 lb 8 oz [...] Robert Vigil MD Division of Hospitalist Medicine [facility] Anticoagulation Management Service ([facility]) Inpatient Warfarin Consult HPI: Mel Pop is a 83 y.o. female admitted on 04/03/2024 for Peripheral arterial disease (HCC). Past Medical History: Diagnosis Date Asthma Essential hypertension 03/07/2020 GERD (gastroesophageal reflux disease) Hiatal hernia Pure hypercholesterolemia 03/07/2020 Patient is newly referred to the [facility] clinic for warfarin management. Pt was [...] PharmD [facility] Consult Service is available daily [phone] via [employer]. If no response, please page [phone]. Department of General Surgery Daily Progress Note Vascular Service ADMIT DATE: 04/03/2024 TODAY'S DATE: 04/07/2024 SUBJECTIVE: NAEON. POD1 RLE venous thrombectomy. Feeling better this am. Edema much better OBJECTIVE: VITALS: BP 137/63 (BP Location: Right arm, Patient Position: Sitting) Pulse 81 Temp 36.8 C (98.3 F) (Temporal) Resp 14 Ht 1.626 m (5' 4) Wt 72.3 kg (159 lb 8 oz) [...] 102* 97 Hepatic: No results for input(s): AST, ALT, BILITOT, ALKPHOS in the last 72 hours. No lab exists for component: ALB Current Inpatient Medications Scheduled Meds:influenza, 0.5 mL, [...] George Sarah MD PGY5, General Surgery Pager #[phone] CDI Query Response: Acute thrombus within the [...] Anticipate DC pending clinical improvement and pain., Solution Consultant recommendations, Coumadin bridge with heparin Total time [...] asthma, hiatal hernia, GERD who presented to [place] 04/03 with right leg pain, numbness, tingling causing difficulty ambulating. CTA of LE, showing severe LE atherosclerotic disease with bilateral superficial femoral artery occlusion, and was transferred to [facility] for admission. Interval History: Has significant [...] Pure hypercholesterolemia 03/07/2020 LABS: CBC: Recent Labs 04/04/2408 04/05/24 0739 04/06/24 0711 WBC 8.1 6.1 [...] TROPONINI 0.014 Procalcitonin: No results found for: PROCAL COVID-19 PCR: No results for input(s): COVID19 in the last 72 hours. Objective: Vitals: BP 147/71 Pulse 73 Temp 36.3 C (97.4 F) (Temporal) Resp 18 Ht 5' 4 (1.626 m) Wt 159 lb 8 oz [...] Robert Vigil MD Division of Hospitalist Medicine [facility] Department of General Surgery Daily Progress Note Vascular Service ADMIT DATE: 04/03/2024 TODAY'S DATE: 04/06/2024 SUBJECTIVE: NAEON. Patient endorses RLE pain that she states she is unable to live with. Notes that she walks fairly often at home. OBJECTIVE: VITALS: BP 136/56 (BP Location: Left arm, Patient Position: Sitting) Pulse 77 Temp 36.3 C (97.4 F) (Temporal) Resp 14 Ht 5' 4 (1.626 m) Wt 159 lb 8 oz [...] their satisfaction. [facility] Anticoagulation Management Service ([facility]) Inpatient Warfarin Consult HPI: Mel Pop is a 83 y.o. female admitted on 04/03/2024 for Peripheral arterial disease (HCC). Past Medical History: Diagnosis Date Asthma Essential hypertension 03/07/2020 GERD (gastroesophageal reflux disease) Hiatal hernia Pure hypercholesterolemia 03/07/2020 Patient is newly referred to the [facility] clinic for warfarin management. Pt was [...] PharmD [facility] Consult Service is available daily [phone] via [employer]. If no response, please page [phone]. Hospitalist Progress Note 04/05/2024 Assessment/Plan: Data: (CAT1) [...] Discharge Disposition: Anticipate DC pending clinical improvement, marketing operations consultant recommendations Total time spent (which include [...] asthma, hiatal hernia, GERD who presented to [place] 04/03 with right leg pain, numbness, tingling causing difficulty ambulating. CTA of LE, showing severe LE atherosclerotic disease with bilateral superficial femoral artery occlusion, and was transferred to [facility] for admission. Interval History: Had more [...] TROPONINI 0.014 Procalcitonin: No results found for: PROCAL COVID-19 PCR: No results for input(s): COVID19 in the last 72 hours. Objective: Vitals: BP 112/73 (BP Location: Left arm, Patient Position: Sitting) Pulse 73 Temp 36.7 C (98 F) (Temporal) Resp 16 Ht 5' 4 (1.626 m) Wt 159 lb 8 oz [...] Robert Vigil MD Division of Hospitalist Medicine [facility] Nutrition rescreen completed. Chart reviewed. Patient to be monitored and followed by the diet air analysis technician. FADI Harmon [facility] Anticoagulation Management Service ([facility]) Inpatient Warfarin Consult HPI: Mel Pop is a 83 y.o. female admitted on 04/03/2024 for Peripheral arterial disease (HCC). Past Medical History: Diagnosis Date Asthma Essential hypertension 03/07/2020 GERD (gastroesophageal reflux disease) Hiatal hernia Pure hypercholesterolemia 03/07/2020 Patient is newly referred to the [facility] clinic for warfarin management. Pt was [...] PharmD [facility] Consult Service is available daily [phone] via [employer]. If no response, please page [phone]. Department of General Surgery Daily Progress Note [...] (Temporal) Resp 18 Ht 1.626 m (5' 4) Wt 72.3 kg (159 lb 8 oz) [...] 5-30 Units/kg/hr, Last Rate: 14 Units/kg/hr (04/05/24 012) sodium chloride, 125 mL/hr, Last Rate: 125 [...] Naik MD General Surgery PGY-4 Pager # [phone] Associated attestation - Kristyn Blankenship MD - [...] thrombectomy tomorrow. [facility] Anticoagulation Management Service ([facility]) Inpatient Warfarin Consult HPI: Mel Pop is a 83 y.o. female admitted on 04/03/2024 for Peripheral arterial disease (HCC). Past Medical History: Diagnosis Date Asthma Essential hypertension 03/07/2020 GERD (gastroesophageal reflux disease) Hiatal hernia Pure hypercholesterolemia 03/07/2020 Patient is newly referred to the [facility] clinic for warfarin management. Pt was [...] Will determine if pt is agreeable to [facility] follow-up 4. Will provide warfarin education. Thank you for this consult Marybeth Rahman RPh, PharmD [facility] Consult Service is available daily [phone] via [employer]. If no response, please page [phone]. Nonbillable encounter. Patient was seen by provider earlier today Patient is an 83-year-old female with history of A-fib on Eliquis, significant tobacco use, HTN, HLD, asthma, hiatal hernia, GERD who presented to [place] 04/03 with right leg pain, numbness, tingling causing difficulty ambulating. CTA of LE, showing severe LE atherosclerotic disease with bilateral superficial femoral artery occlusion, and was transferred to [facility] for admission. Severe bilateral LE atherosclerotic [...] Eliquis -Smoking cessation documented in this encounter [facility] 04-13-2024 Note Formatting of this n ote is different from the original. Images from the original note were not included. Care Management Progress Note INR 2.3 today. Hep drip continued, plan to DC to [facility]als today. Plan to have PT seen patient today per her request. Patient is active with [facility]. Await treatment plan and clinical progress. vitamin manager will continue to follow for transitional [...] AM hep gtt- transitioning to coumadin, INR 2.3 04/13/2024 Cathi Avila RN 04/12/2024 8:02 AM hep gtt- transitioning to coumadin, INR 1.9 04/11/2024 Cathi Avila RN 04/11/2024 8:03 AM 04/11/2024 Cathi Avila RN 04/10/2024 8:41 AM hep gtt- transitioning to coumadin 04/10/2024 Virginia Rehman RN 04/09/2024 8:13 AM 04/08/2024 Virginia Rehman RN 04/06/2024 8:13 AM hep gtt, poss thrombectomy 04/07/2024 Virginia Rehman RN 04/05/2024 8:03 AM hep gtt, poss thrombectomy tomorrow 04/06/2024 Virginia Rehman RN 04/04/2024 8:48 AM hep gtt, oliva lower US, vasc consult 04/06/2024 Bernie Cutler APRN - NON PROFIT FINANCIAL CONTROLLER 04/04/2024 4:04 AM 04/06/2024 Bernie Cutler APRN - NON PROFIT FINANCIAL CONTROLLER 04/03/2024 11:17 PM Length of Stay (Days): 10 GMLOS: 4 [facility] 04-13-2024 Note Formatting of this n ote is different from the original. Images from the original note were not included. Care Management Progress Note INR 2.3 today. Hep drip continued, plan to DC to [facility] today. Plan to have PT seen patient today per her request. Patient is active with [facility]. Await treatment plan and clinical progress. vitamin manager will continue to follow for transitional [...] AM hep gtt- transitioning to coumadin, INR 2.3 04/13/2024 Cathi Avila RN 04/12/2024 8:02 AM hep gtt- transitioning to coumadin, INR 1.9 04/11/2024 Cathi Avila RN 04/11/2024 8:03 AM 04/11/2024 Cathi Avila RN 04/10/2024 8:41 AM hep gtt- transitioning to coumadin 04/10/2024 Virginia Rehman RN 04/09/2024 8:13 AM 04/08/2024 Virginia Rehman RN 04/06/2024 8:13 AM hep gtt, poss thrombectomy 04/07/2024 Virginia Rehman RN 04/05/2024 8:03 AM hep gtt, poss thrombectomy tomorrow 04/06/2024 Virginia Rehman RN 04/04/2024 8:48 AM hep gtt, oliva lower US, vasc consult 04/06/2024 Bernie Cutler APRN - NON PROFIT FINANCIAL CONTROLLER 04/04/2024 4:04 AM 04/06/2024 Bernie Cutler APRN - NON PROFIT FINANCIAL CONTROLLER 04/03/2024 11:17 PM Length of Stay (Days): 10 GMLOS: 4 [facility] 04-13-2024 Plan of care note [...] plan, medications, and discharge instructions Outcome: Progressing [facility] 04-12-2024 Plan of care note [...] risk of patient condition declining or worsening [facility] 04-12-2024 Note Formatting of this n ote is different from the original. Images from the original note were not included. Care Management Progress Note Patent currently still on Hep Drip, INR 1.9. Will convert to oral when appropriate. Pt active with [facility]- will continue services at discharge. Await treatment plan and clinical progress. vitamin manager will continue to follow for transitional care needs for discharge planning. Discharge Milestones and Delays Expected date/time: 04/13/2024 Expected discharge disposition: Home Health Services Discharge Milestones Place discharge order Complete med reconciliation Case mgmt discharge readiness Clinical Stability Diagnostic Workup Solution Consultant Recommendations Facility Choice Selection Imaging Results PT discharge readiness OT discharge readiness Patient Education Complete Expected Discharge History Expected Date/Time Set By Reviewed At 04/13/2024 Cathi Avila RN 04/12/2024 8:02 AM hep gtt- transitioning to coumadin, INR 1.9 04/11/2024 Cathi Avila RN 04/11/2024 8:03 AM 04/11/2024 Cathi Avila RN 04/10/2024 8:41 AM hep gtt- transitioning to coumadin 04/10/2024 Virginia Rehman RN 04/09/2024 8:13 AM 04/08/2024 Virginia Rehman RN 04/06/2024 8:13 AM hep gtt, poss thrombectomy 04/07/2024 Virginia Rehman RN 04/05/2024 8:03 AM hep gtt, poss thrombectomy tomorrow 04/06/2024 Virginia Rehman RN 04/04/2024 8:48 AM hep gtt, oliva lower US, vasc consult 04/06/2024 Bernie Cutler, PROFESSOR OF SPECIAL EDUCATION - NON PROFIT FINANCIAL CONTROLLER 04/04/2024 4:04 AM 04/06/2024 Bernie Cutler PROFESSOR OF SPECIAL EDUCATION - NON PROFIT FINANCIAL CONTROLLER 04/03/2024 11:17 PM Length of Stay (Days): 9 GMLOS: 4 [facility] 04-12-2024 Note Formatting of this n ote is different from the original. Images from the original note were not included. Care Management Progress Note Patent currently still on Hep Drip, INR 1.9. Will convert to oral when appropriate. Pt active with [facility]- will continue services at discharge. Await treatment plan and clinical progress. vitamin manager will continue to follow for transitional care needs for discharge planning. Discharge Milestones and Delays Expected date/time: 04/13/2024 Expected discharge disposition: Home Health Services Discharge Milestones Place discharge order Complete med reconciliation Case mgmt discharge readiness Clinical Stability Diagnostic Workup Solution Consultant Recommendations Facility Choice Selection Imaging Results PT discharge readiness OT discharge readiness Patient Education Complete Expected Discharge History Expected Date/Time Set By Reviewed At 04/13/2024 Cathi Avila RN 04/12/2024 8:02 AM hep gtt- transitioning to coumadin, INR 1.9 04/11/2024 Cathi Avila RN 04/11/2024 8:03 AM 04/11/2024 Cathi Avila RN 04/10/2024 8:41 AM hep gtt- transitioning to coumadin 04/10/2024 Virginia Rehman RN 04/09/2024 8:13 AM 04/08/2024 Virginia Rehman RN 04/06/2024 8:13 AM hep gtt, poss thrombectomy 04/07/2024 Virginia Rehman RN 04/05/2024 8:03 AM hep gtt, poss thrombectomy tomorrow 04/06/2024 Virginia Rehman RN 04/04/2024 8:48 AM hep gtt, oliva lower US, vasc consult 04/06/2024 Bernie Cutler, PROFESSOR OF SPECIAL EDUCATION - NON PROFIT FINANCIAL CONTROLLER 04/04/2024 4:04 AM 04/06/2024 Bernie Cutler APRN - NON PROFIT FINANCIAL CONTROLLER 04/03/2024 11:17 PM Length of Stay (Days): 9 GMLOS: 4 T [facility] 04-12-2024 Plan of care note The [...] medications, and discharge instructions Outcome: Progressing T [facility] 04-11-2024 Note Formatting of this n ote is different from the original. Images from the original note were not included. Care Management Progress Note Patent currently still on Hep Drip, INR 1.9. Will convert to oral when appropriate. Pt active with [facility]- will continue services at discharge. Await treatment plan and clinical progress. vitamin manager will continue to follow for transitional [...] AM hep gtt- transitioning to coumadin, INR 1.9 04/11/2024 Cathi Avila RN 04/10/2024 8:41 AM hep gtt- transitioning to coumadin 04/10/2024 Virginia Rehman RN 04/09/2024 8:13 AM 04/08/2024 Virginia Rehman RN 04/06/2024 8:13 AM hep gtt, poss thrombectomy 04/07/2024 Virginia Rehman RN 04/05/2024 8:03 AM hep gtt, poss thrombectomy tomorrow 04/06/2024 Virginia Rehman RN 04/04/2024 8:48 AM hep gtt, oliva lower US, vasc consult 04/06/2024 Bernie Cutler APRN - NON PROFIT FINANCIAL CONTROLLER 04/04/2024 4:04 AM 04/06/2024 Bernie Cutler APRN - NON PROFIT FINANCIAL CONTROLLER 04/03/2024 11:17 PM Length of Stay (Days): 8 GMLOS: 4 [facility] 04-11-2024 Note Formatting of this n ote is different from the original. Images from the original note were not included. Care Management Progress Note Patent currently still on Hep Drip, INR 1.9. Will convert to oral when appropriate. Pt active with [facility]- will continue services at discharge. Await treatment plan and clinical progress. vitamin manager will continue to follow for transitional [...] AM hep gtt- transitioning to coumadin, INR 1.9 04/11/2024 Cathi Avila RN 04/10/2024 8:41 AM hep gtt- transitioning to coumadin 04/10/2024 Virginia Rehman RN 04/09/2024 8:13 AM 04/08/2024 Virginia Rehman RN 04/06/2024 8:13 AM hep gtt, poss thrombectomy 04/07/2024 Virginia Rehman RN 04/05/2024 8:03 AM hep gtt, poss thrombectomy tomorrow 04/06/2024 Virginia Rehman RN 04/04/2024 8:48 AM hep gtt, oliva lower US, vasc consult 04/06/2024 Bernie Cutler APRN - NON PROFIT FINANCIAL CONTROLLER 04/04/2024 4:04 AM 04/06/2024 Bernie Cutler APRN - NON PROFIT FINANCIAL CONTROLLER 04/03/2024 11:17 PM Length of Stay (Days): 8 GMLOS: 4 [facility] 04-11-2024 Plan of care note [...] risk of patient condition declining or worsening [facility] 04-11-2024 Plan of care note [...] or baseline comfort level Outcome: Progressing T [facility] 04-10-2024 Plan of care note Problem: [...] risk of patient condition declining or worsening [facility] 04-10-2024 Note Formatting of this n ote is different from the original. Images from the original note were not included. Care Management Progress Note Patient currently still on Heparin Drip, INR 1.6 today.Will convert to oral when appropriate. Pt active with [facility]- will continue services at discharge. Await treatment plan and clinical progress. vitamin manager will continue to follow for transitional care needs for discharge planning. Discharge Milestones and Delays Expected date/time: 04/11/2024 Expected discharge disposition: Home or Self Care Discharge Milestones Place discharge order Complete med reconciliation Case mgmt discharge readiness Clinical Stability Diagnostic Workup Solution Consultant Recommendations Facility Choice Selection Imaging Results Patient Education Complete Expected Discharge History Expected Date/Time Set By Reviewed At 04/11/2024 Cathi Avila RN 04/10/2024 8:41 AM hep gtt- transitioning to coumadin 04/10/2024 Virginia Rehman RN 04/09/2024 8:13 AM 04/08/2024 Virginia Rehman RN 04/06/2024 8:13 AM hep gtt, poss thrombectomy 04/07/2024 Virginia Rehman RN 04/05/2024 8:03 AM hep gtt, poss thrombectomy tomorrow 04/06/2024 Virginia Rehman RN 04/04/2024 8:48 AM hep gtt, oliva lower US, vasc consult 04/06/2024 Bernie Cutler APRN - NON PROFIT FINANCIAL CONTROLLER 04/04/2024 4:04 AM 04/06/2024 Bernie Cutler APRN - NON PROFIT FINANCIAL CONTROLLER 04/03/2024 11:17 PM Length of Stay (Days): 7 GMLOS: 4 [facility] 04-10-2024 Note Formatting of this n ote is different from the original. Images from the original note were not included. Care Management Progress Note Patient currently still on Heparin Drip, INR 1.6 today.Will convert to oral when appropriate. Pt active with [facility]- will continue services at discharge. Await treatment plan and clinical progress. vitamin manager will continue to follow for transitional care needs for discharge planning. Discharge Milestones and Delays Expected date/time: 04/11/2024 Expected discharge disposition: Home or Self Care Discharge Milestones Place discharge order Complete med reconciliation Case mgmt discharge readiness Clinical Stability Diagnostic Workup Solution Consultant Recommendations Facility Choice Selection Imaging Results Patient Education Complete Expected Discharge History Expected Date/Time Set By Reviewed At 04/11/2024 Cathi Avila RN 04/10/2024 8:41 AM hep gtt- transitioning to coumadin 04/10/2024 Virginia Rehman RN 04/09/2024 8:13 AM 04/08/2024 Virginia Rehman RN 04/06/2024 8:13 AM hep gtt, poss thrombectomy 04/07/2024 Virginia Rehman RN 04/05/2024 8:03 AM hep gtt, poss thrombectomy tomorrow 04/06/2024 Virginia Rehman RN 04/04/2024 8:48 AM hep gtt, oliva lower US, vasc consult 04/06/2024 SEBASTIAN Herrera CNP 04/04/2024 4:04 AM 04/06/2024 SEBASTIAN Herrera CNP 04/03/2024 11:17 PM Length of Stay (Days): 7 GMLOS: 4 [facility] 04-09-2024 Note Formatting of this n ote is different from the original. Images from the original note were not included. Care Management Progress Note Remains on heparin gtt while transitioning to coumadin. Consult Hemology. Pt active with [facility]- will continue services at discharge. Await treatment plan and clinical progress. vitamin manager will continue to follow for transitional care needs for discharge planning. Discharge Milestones and Delays Expected date/time: 04/10/2024 Expected discharge disposition: Home or Self Care Discharge Milestones Place discharge order Complete med reconciliation Case mgmt discharge readiness Clinical Stability Diagnostic Workup Solution Consultant Recommendations Facility Choice Selection Imaging Results Patient Education Complete Expected Discharge History Expected Date/Time Set By Reviewed At 04/10/2024 Virginia Rehman RN 04/09/2024 8:13 AM hep gtt- transitioning to coumadin 04/08/2024 Virginia Rehman RN 04/06/2024 8:13 AM hep gtt, poss thrombectomy 04/07/2024 Virginia Rehman RN 04/05/2024 8:03 AM hep gtt, poss thrombectomy tomorrow 04/06/2024 Virginia Rehman RN 04/04/2024 8:48 AM hep gtt, oliva lower US, vasc consult 04/06/2024 SEBASTIAN Herrera CNP 04/04/2024 4:04 AM 04/06/2024 Bernie Cutler APRN - SHAMIKA 04/03/2024 11:17 PM Length of Stay (Days): 6 GMLOS: 3.1 [facility] 04-09-2024 Note Formatting of this n ote is different from the original. Images from the original note were not included. Care Management Progress Note Remains on heparin gtt while transitioning to coumadin. Consult Hemology. Pt active with [facility]- will continue services at discharge. Await treatment plan and clinical progress. vitamin manager will continue to follow for transitional care needs for discharge planning. Discharge Milestones and Delays Expected date/time: 04/10/2024 Expected discharge disposition: Home or Self Care Discharge Milestones Place discharge order Complete med reconciliation Case mgmt discharge readiness Clinical Stability Diagnostic Workup Solution Consultant Recommendations Facility Choice Selection Imaging Results Patient Education Complete Expected Discharge History Expected Date/Time Set By Reviewed At 04/10/2024 Virginia Rehman RN 04/09/2024 8:13 AM hep gtt- transitioning to coumadin 04/08/2024 Virginia Rehman RN 04/06/2024 8:13 AM hep gtt, poss thrombectomy 04/07/2024 Virginia Rehman RN 04/05/2024 8:03 AM hep gtt, poss thrombectomy tomorrow 04/06/2024 Virginia Rehman RN 04/04/2024 8:48 AM hep gtt, oliva lower US, vasc consult 04/06/2024 Bernie Cutler APRN - NON PROFIT FINANCIAL CONTROLLER 04/04/2024 4:04 AM 04/06/2024 Bernie Cutler APRN - NON PROFIT FINANCIAL CONTROLLER 04/03/2024 11:17 PM Length of Stay (Days): 6 GMLOS: 3.1 [facility] 04-08-2024 Plan of care note Progressing T [facility] 04-07-2024 Plan of care note The patient [...] or baseline comfort level Outcome: Progressing . [facility] 04-07-2024 Hospital Discharge instructions Lolita [...] Rahman RPh - 04/13/2024 1:07 PM EDT [facility] Clinic will monitor your warfarin after you go home. [facility] Phone number: [phone]. 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 Seasonal allergies [...] (Temporal) Resp 18 Ht 1.626 m (5' 4) Wt 72.3 kg (159 lb 8 oz) SpO2 98% BMI 27.38 kg/m Last documented pain score (0-10 scale): Last Weight: Wt Readings from Last 1 Encounters: 04/03/24 72.3 kg (159 lb 8 oz) Mental Status: {HECTOR Patient Mental Status:96849} IV Access: {HECTOR IV Access:07161} Nursing Mobility/ADLs: Walking {MAHESH ADL:20882::Independent} Transfer {MAHESH ADL:66924::Independent} Bathing {MAHESH ADL:42075::Independent} Dressing {MAHESH ADL:51295::Independent} Toileting {MAHESH ADL:01905::Independent} Feeding {MAHESH ADL:74811::Independent} Scratch Finisher {MAHESH ADL:65095::Independent} Med Delivery {yes/no:55864} Wound Care Documentation and Therapy: Elimination: Continence: Bowel: {yes/no:23747} Bladder: {yes/no:12935} Urinary Catheter: {HECTOR Urinary Catheter:83978} Colostomy/Ileostomy/Ileal Conduit: {YES / NO:} Date of Last BM: Intake/Output Summary (Last 24 hours) at 04/04/2024 1135 Last data filed at 04/03/20242056 Gross per 24 hour Intake 500 ml Output -- Net 500 ml I/O last 3 completed shifts: In: 500 (6.9 mL/kg) [IV Piggyback:500] Out: - (0 mL/kg) Weight: 72.3 kg Safety Concerns: {HECTOR Safety Concerns:57148} Impairments/Disabilities: {HECTOR Impairments/Disabilities:56125} Nutrition Therapy: Current Nutrition Therapy: {HECTOR Diet List:53738} Routes of Feeding: {routes of feedin} Liquids: {liquid consistency:89421} Daily Fluid Restriction: {daily fluid restriction:83981} Last Modified Barium Swallow with Video (Video Swallowing Test): {done not done:49257} Treatments at the Time of Hospital Discharge: Respiratory Treatments: Oxygen Therapy: {Therapy; copd oxygen:68359} Ventilator: {HECTOR Ventilator:01584} Rehab Therapies: {GEN THERAPY DISCIPLINE SCAL:9851758} Weight Bearing Status/Restrictions: {POD WEIGHT BEARIN} Other Medical Equipment (for information only, NOT a DME order): {Assistive Devices DME:22010} Other Treatments: Patient's personal belongings (please select all that are sent with patient): {HECTOR Patient Belongings:49599} RN SIGNATURE: {E-signature:82496} CASE MANAGEMENT/SOCIAL WORK SECTION Inpatient Status Date: Discharging to Facility/ Agency Name: [facility] at Home Address: [address] [place] [address] Dialysis Facility (if applicable) Name: Address: Dialysis Schedule: Phone: Fax: Synchro Assembler/Property Portfolio Officer signature: {E-signature:82114} PHYSICIAN SECTION Name: Mel Pop Prognosis: {Rehab Prognosis:14876} Condition at Discharge: {Patient Condition:01506} Rehab Potential (if transferring to Rehab): {Rehab Prognosis:13658} Recommended Labs or Other Treatments After Discharge: The individual is being admitted to a nursing facility directly from an [facility] or a unit of a [place] [facility] that is not operated by or [...] and that she requires {HECTOR Level of Care:00021} for {greater less than:82360} 30 days. Update Admission H&P: {HECTOR Changes in H&P:66427} PHYSICIAN SIGNATURE: {E-signature:23403} documented in this encounter [facility] 04-07-2024 Nurse Note NO changes to heparin infusion at this time. [facility] 04-06-2024 Note Formatting of this n ote is different from the original. Images from the original note were not included. Care Management Progress Note Pt s/p thrombectomy this am with vascular. Remains on heparin gtt while transitioning to coumadin. Pt active with [facility]- will continue services at discharge. Discharge [...] 04/05/2024 8:03 AM hep gtt, poss thrombectomy tomorrow 04/06/2024 Virginia Rehman RN 04/04/2024 8:48 AM hep gtt, oliva lower US, vasc consult 04/06/2024 SEBASTIAN Herrera CNP 04/04/2024 4:04 AM 04/06/2024 SEBASTIAN Herrera CNP 04/03/2024 11:17 PM Length of Stay (Days): 3 GMLOS: 3.1 [facility] 04-06-2024 Note Formatting of this n ote is different from the original. Images from the original note were not included. Care Management Progress Note Pt s/p thrombectomy this am with vascular. Remains on heparin gtt while transitioning to coumadin. Pt [facility]- will continue services at discharge. [...] 04/05/2024 8:03 AM hep gtt, poss thrombectomy tomorrow 04/06/2024 Virginia Rehman RN 04/04/2024 8:48 AM hep gtt, oliva lower US, vasc consult 04/06/2024 Bernie Cutler APRN - NON PROFIT FINANCIAL CONTROLLER 04/04/2024 4:04 AM 04/06/2024 Bernie Cutler APRN - SHAMIKA 04/03/2024 11:17 PM Length of Stay (Days): 3 GMLOS: 3.1 [facility] 04-06-2024 Note Formatting of this n ote might be different from the original. Patient report called to 4N RN and denies any further questions. Patient resting comfortably and no signs of distress. Per resident patient to lay flat for 2 hours and restart heparin GTT at 1215. Transport notified. [facility] 04-06-2024 Note Formatting of this n ote might be different from the original. Patient report called to 4N RN and denies any further questions. Patient resting comfortably and no signs of distress. Per resident patient to lay flat for 2 hours and restart heparin GTT at 1215. Transport notified. [facility] 04-06-2024 Note Formatting of this n ote might be different from the original. SW assisted patient with completion of Health Care Power of Potato Sorter. One copy placed in patient chart, one copy sent to medical records and two copies given to patient. Requested by patient, while at bedside this SW spoke to patient's son via patients phone to explain that HCPOA was being completed by patient. Patients son José Miguel Castillo ([phone]) agreed to be this patients agent on the HCPOA and confirmed understanding. [facility] 04-06-2024 Note Formatting of this n ote might be different from the original. SW assisted patient with completion of Health Care Power of Potato Sorter. One copy placed in patient chart, one copy sent to medical records and two copies given to patient. Requested by patient, while at bedside this SW spoke to patient's son via patients phone to explain that HCPOA was being completed by patient. Patients danny Castillo ([phone]) agreed to be this patients agent on the HCPOA and confirmed understanding. [facility] 04-06-2024 Note Formatting of this n ote [...] technique was used to place a 5 Turkish sheath. A Bentson wire was able to be advanced in the inferior vena cava without difficulty. The 5 Turkish sheath was then upsized to a 16 Turkish sheath and the penumbra flash suction thrombectomy device was prepared per engraver hand hard metals's instructions. The patient was also given 5000 units of heparin for systemic anticoagulation at this time. The Penumbra device was then inserted through the 16 Turkish sheath and a suction thrombectomy was performed [...] device was removed as was the 16 Turkish sheath and an 0 silk suture was [...] the case. Kristyn Blankenship MD Vascular Surgery [facility] 04-06-2024 Note Formatting of this n ote is different from the original. Date: 04/06/2024 Location: [facility] OR Name: Mel Pop, : 1940, Diagnosis Pre-op Diagnosis * Right leg DVT (HCC) [I82.401] Post-op Diagnosis * Right leg DVT (HCC) [I82.401] Procedures RIGHT LOWER EXTREMITY VENOUS MECHANICAL THROMBECTOMY 85654 - AL PRQ TRANSLUMINAL MECHANICAL THROMBECTOMY VEIN Surgeons * Kristyn Blankenship - Primary Procedure Summary Anesthesia: General ASA: III Estimated Blood Loss: 300 mL Drains: * None in log * Staff: Sweater Designer: Negrita Elizabeth RN; Amira Burton RN Scrub [...] antibiotics are not indicated for this procedure. [facility] 04-06-2024 Note Formatting of this [...] technique was used to place a 5 Turkish sheath. A Bentson wire was able to be advanced in the inferior vena cava without difficulty. The 5 Turkish sheath was then upsized to a 16 Turkish sheath and the penumbra flash suction thrombectomy device was prepared per engraver hand hard metals's instructions. The patient was also given 5000 units of heparin for systemic anticoagulation at this time. The Penumbra device was then inserted through the 16 Turkish sheath and a suction thrombectomy was performed [...] device was removed as was the 16 Turkish sheath and an 0 silk suture was [...] the case. Kristyn Blankenship MD Vascular Surgery [facility] 04-06-2024 Note Formatting of this n ote is different from the original. Date: 04/06/2024 Location: [facility] OR Name: Mel Pop, : 1940, Diagnosis Pre-op Diagnosis * Right leg DVT (HCC) [I82.401] Post-op Diagnosis * Right leg DVT (HCC) [I82.401] Procedures RIGHT LOWER EXTREMITY VENOUS MECHANICAL THROMBECTOMY 48992 - AL PRQ TRANSLUMINAL MECHANICAL THROMBECTOMY VEIN Surgeons * Kristyn Blankenship - Primary Procedure Summary Anesthesia: General ASA: III Estimated Blood Loss: 300 mL Drains: * None in log * Staff: Sweater Designer: Negrita Elizabeth RN; Amira Burton RN Scrub [...] antibiotics are not indicated for this procedure. [facility] 04-06-2024 Note Formatting of this n ote might be different from the original. Dr Blankenship at bedside. She called family to update them on procedure time change [facility] 04-06-2024 Note Formatting of this n ote might be different from the original. Dr Blankenship at bedside. She called family to update them on procedure time change [facility] 04-06-[address] Blankenship at bedside. [...] from home alone- indep and active with [facility]- will return. Discharge Milestones and Delays Expected date/time: 04/07/2024 Expected discharge disposition: Home or Self Care Discharge Milestones Place discharge order Complete med reconciliation Case mgmt discharge readiness Clinical Stability Diagnostic Workup Facility Choice Selection Patient Education Complete Expected Discharge History Expected Date/Time Set By Reviewed At 04/07/2024 Virginia Rehman RN 04/05/2024 8:03 AM hep gtt, poss thrombectomy tomorrow 04/06/2024 Virginia Rehman RN 04/04/2024 8:48 AM hep gtt, oliva lower US, vasc consult 04/06/2024 SEBASTIAN Herrera CNP 04/04/2024 4:04 AM 04/06/2024 SEBASTIAN Herrera CNP 04/03/2024 11:17 PM Length of Stay (Days): 2 GMLOS: 3.1 [facility] 04-05-2024 Note Formatting of this n ote is different from the original. Images from the original note were not included. Care Management Progress Note Vascular following with noted plan for possible thrombectomy tomorrow. Remains on heparin gtt while transitioning to coumadin per oncology recommendation. Pt from home alone- indep and active with [facility]- will return. Discharge Milestones and Delays Expected date/time: 04/07/2024 Expected discharge disposition: Home or Self Care Discharge Milestones Place discharge order Complete med reconciliation Case mgmt discharge readiness Clinical Stability Diagnostic Workup Facility Choice Selection Patient Education Complete Expected Discharge History Expected Date/Time Set By Reviewed At 04/07/2024 Virginia Rehman RN 04/05/2024 8:03 AM hep gtt, poss thrombectomy tomorrow 04/06/2024 Virginia Rehman RN 04/04/2024 8:48 AM hep gtt, oliva lower US, vasc consult 04/06/2024 Bernie Cutler APRN - NON PROFIT FINANCIAL CONTROLLER 04/04/2024 4:04 AM 04/06/2024 Bernie Cutler APRN - NON PROFIT FINANCIAL CONTROLLER 04/03/2024 11:17 PM Length of Stay (Days): 2 GMLOS: 3.1 [facility] 04-05-2024 Plan of care note The patient is Moderately Stable - Low risk of patient condition declining or worsening The patient's goals for the shift include met The clinical goals for the shift include met [facility] 04-04-2024 Consult note Formatting of th is note is different from the original. Images from the original note were not included. [facility] Hematology Oncology Inpatient Consultation [facility] Mel Pop : 1940(83 y.o.) Date: [...] afib, hypertension, and GERD who presented to [facility] for right lower extremity pain. [...] trifurcation vessels. Vascular surgery recommended transfer to [facility]. PVR and BLE US results pending [...] called her listed contacts (her friend and [id number] however they do not manage her pill [...] eliquis. I have left a voicemail with [facility] pharmacy in [place] to see if the Eliquis is being [...] min Stress: No Stress Concern Present (04/04/2024) [employer] - Occupational Stress Questionnaire Feeling of Stress : Not at all Social Connections: Moderately Isolated (04/04/2024) Social Connection and Isolation Panel [NHANES] Frequency of Communication with Friends and Family: More than three times a week Frequency of Social Gatherings with Friends and Family: More than three times a week Attends Anglican Services: 1 to 4 times per year [...] [facility] 1940 [id number] Exam Date/Time: 04/03/2024 21:06 Procedure: CT HEAD [...] completing clinical documentation as well as with [id number] patient care, performing a medically appropriate examination, [...] well as answering questions. Andre Patel MD [email or web address] Work Phone: 04-04-2024 Consult note Formatting of th is note is different from the original. Images from the original note were not included. [facility] Hematology Oncology Inpatient Consultation [facility] Mel Pop : 1940(83 y.o.) Date: [...] afib, hypertension, and GERD who presented to [facility] for right lower extremity pain. [...] trifurcation vessels. Vascular surgery recommended transfer to [facility]. PVR and BLE US results pending [...] called her listed contacts (her friend and [id number] however they do not manage her pill [...] left a voicemail with [facility] pharmacy in [place] to see if the Eliquis is being [...] min Stress: No Stress Concern Present (04/04/2024) [employer] - Occupational Stress Questionnaire Feeling of Stress : Not at all Social Connections: Moderately Isolated (04/04/2024) Social Connection and Isolation Panel [NHANES] Frequency of Communication with Friends and Family: More than three times a week Frequency of Social Gatherings with Friends and Family: More than three times a week Attends Anglican Services: 1 to 4 times per year [...] : 1940 [id number] Exam Date/Time: 04/03/2024 21:14 Procedure: CTA AORTA [...] 04/03/2024 Patient Name: MEL POP : 1940 [facility]#: [id number] Exam Date/Time: 04/03/2024 21:06 Procedure: CT HEAD [...] completing clinical documentation as well as with [id number] patient care, performing a medically appropriate examination, [...] Lolita Sarah MD PGY5, General Surgery Pager #[phone] Past Medical History: Diagnosis Date Asthma Essential [...] min Stress: No Stress Concern Present (04/04/2024) [employer] - Occupational Stress Questionnaire Feeling of Stress : Not at all Social Connections: Moderately Isolated (04/04/2024) Social Connection and Isolation Panel [NHANES] Frequency of Communication with Friends and Family: More than three times a week Frequency of Social Gatherings with Friends and Family: More than three times a week Attends Anglican Services: 1 to 4 times per year [...] PROTIME 11.7 04/03/2024 No results found for: VLDL PHYSICAL EXAM: Vitals: 04/04/24 0404 BP: 145/80 [...] TESTING: Patient Name: MEL POP : 1940 [facility]#: [id number] Exam Date/Time: 04/03/2024 21:14 Procedure: CTA AORTA [...] evidence of phlegmasia. Heparin gtt initiated at [facility] prior to transfer and continued here. She notes missed doses of her Eliquis. Recommend compression and elevation of the right lower extremity. Can consider mechanical thrombectomy however given patient's age, this may be more risk than of benefit. Will continue to monitor for symptom improvement on anticoagulation alone. documented in this encounter [facility] 04-04-2024 Note Formatting of this n ote might be different from the original. Care Managment Initial Assessment Date: 04/04/2024 Patient Name: Mel Pop : 1940 Patient Information Source of Information: Patient Cognition/Language: WFL - Within Functional Limits Permission given to speak with patient containers sales representative/caregiver as indicated: Confirmation of Payer [...] home alone and indep. Pt active with [facility]- liaison following for continued services. Pt uses walker/cane at baseline. Pt has insurance, PCP and able to obtain meds. Pt's friends help with transportation. No needs antic at discharge. Virginia Rehman RN [facility] 04-04-2024 Note Formatting of this n ote might be different from the original. Care Managment Initial Assessment Date: 04/04/2024 Patient Name: Mel Pop : 1940 Patient Information Source of Information: Patient Cognition/Language: WFL - Within Functional Limits Permission given to speak with patient containers sales representative/caregiver as indicated: Confirmation of Payer with patient/family: Yes Payer Name: rey [place]: No Confirmation of Primary Care Physician: Confirmed [...] Health Services Care Services Provider Name: inna [facility] Dialysis Type: NA Durable Medical [...] home alone and indep. Pt active with [facility]- liaison following for continued services. Pt uses walker/cane at baseline. Pt has insurance, PCP and able to obtain meds. Pt's friends help with transportation. No needs antic at discharge. Virginia Rehman RN [facility] 04-04-2024 Note Formatting of this n ote is different from the original. Start PACC Note Home Health Referral Educated patient on Home Care and services available. Patient offered choice of available HHC and agreeable to SN/PT services with [facility] at Home - Home Care. Care [...] is noted as yes - consider a BAGGAGE AND MAIL AGENT evaluation once the patient returns home. START PATIENT REGISTRATION INFORMATION Order Information Order Signing Physician: Robert Vigil MD Service Ordered RN ?: Yes Service Ordered PT ?: Yes Service Ordered OT ?: No Service Ordered ST ?: No Service Ordered BAGGAGE AND MAIL AGENT?:No Service Ordered TELEMARKETING REPRESENTATIVE?: No Following Physician: Jared Evans MD Following Physician Overseeing Physician: Jared Evans MD (Required for Residents only) Agreeable to Follow? Yes Date/Time of Call 04/04/24 11:36 AM, Spoke with: Patient is a DEB. Care Coordination Same Day SOC?: No Primary Care Physician: Jared Evans MD Primary Care Physician Primary Care Physician Address: [address] [place] [id number] Visit Instructions: N/A Service Discharge Location Type: Home with Home Care Service Facility Name: N/A Service Floor Facility: N/A Service Room No: N/A Demographics Patient Last Name: Jose Alberto Patient First Name: Mel Language/Communication Barrier: none Service Address: [address] [place] [address] Dr Scar Veliz Service City: [place] Service ST: [place] Service ZIP: [address] Service Other phone numbers: Telephone Information: Emergency [...] Caregiver Phone Number: na Caregiver Notes: N/A [employer] List No END PATIENT REGISTRATION INFORMATION Pt [...] Complex / N4-461/N4-461 B End PACC Note [facility] 04-04-2024 Note Formatting of this n ote is different from the original. Start PACC Note Home Health Referral Educated patient on Home Care and services available. Patient offered choice of available HHC and agreeable to SN/PT services with [facility] - [facility] Care. Care Types: [...] is noted as yes - consider a BAGGAGE AND MAIL AGENT evaluation once the patient returns home. START PATIENT REGISTRATION INFORMATION Order Information Order Signing Physician: Robert Vigil MD Service Ordered RN ?: Yes Service Ordered PT ?: Yes Service Ordered OT ?: No Service Ordered ST ?: No Service Ordered BAGGAGE AND MAIL AGENT?:No Service Ordered TELEMARKETING REPRESENTATIVE?: No Following Physician: Jared Evans MD Following Physician Overseeing Physician: Jared Evans MD (Required for Residents only) Agreeable to Follow? Yes Date/Time of Call 04/04/24 11:36 AM, Spoke with: Patient is a DEB. Care Coordination Same Day SOC?: No Primary Care Physician: Jared Eavns MD Primary Care Physician Primary Care Physician Address: [address] [place] [address] / [facility] [id number] Visit Instructions: N/A Service Discharge Location Type: Home with Home Care Service Facility Name: N/A Service Floor Facility: N/A Service Room No: N/A Demographics Patient Last Name: Jose Alberto Patient First Name: Mel Language/Communication Barrier: none Service Address: [address] Service City: [place] Service ST: [place] Service ZIP: [address] Service Other phone numbers: Telephone Information: Emergency [...] Caregiver Phone Number: na Caregiver Notes: N/A [employer] List No END PATIENT REGISTRATION INFORMATION [...] Complex / N4-461/N4-461 B End PACC Note [facility] 04-04-2024 Plan of care note The patient is Moderately Stable - Low risk of patient condition declining or worsening The patient's goals for the shift include safety The clinical goals for the shift include therapeutic aptt [facility] 04-04-2024 Note Formatting of this n ote might be different from the original. Patient is currently active with [facility]. The patients current certification period will on 05/18/24. The patient is currently receiving PT services through the agency. [employer] to continue to follow. [facility] 04-04-2024 Note Formatting of this n ote might be different from the original. Patient is currently active with [facility]. The patients current certification period will on 05/18/24. The patient is currently receiving PT services through the agency. [employer] to continue to follow. [facility] 04-04-2024 Consult note Associated Order (s): IP [...] Lolita Sarah MD PGY5, General Surgery Pager #[phone] Past Medical History: Diagnosis Date Asthma Essential [...] min Stress: No Stress Concern Present (04/04/2024) [place] [employer] of Occupational Health - Occupational Stress Questionnaire Feeling of Stress : Not at all Social Connections: Moderately Isolated (04/04/2024) Social Connection and Isolation Panel [NHANES] Frequency of Communication with Friends and Family: More than three times a week Frequency of Social Gatherings with Friends and Family: More than three times a week Attends Anglican Services: 1 to 4 times per year [...] PROTIME 11.7 04/03/2024 No results found for: VLDL PHYSICAL EXAM: Vitals: 04/04/24 0404 BP: 145/80 [...] TESTING: Patient Name: MEL POP : 1940 [facility]#: [id number] Exam Date/Time: 04/03/2024 21:14 Procedure: CTA AORTA [...] PM EDT . Associated attestation - Kristyn Blaknenship MD - 04/04/2024 4:47 PM EDT I [...] evidence of phlegmasia. Heparin gtt initiated at [facility] prior to transfer and continued here. She notes missed doses of her Eliquis. Recommend compression and elevation of the right lower extremity. Can consider mechanical thrombectomy however given patient's age, this may be more risk than of benefit. Will continue to monitor for symptom improvement on anticoagulation alone. [facility] Work Phone: 04-04-2024 Note Formatting of this [...] - DO NOT do CPR, intubation] [_] [DNR-CROP RESEARCH SCIENTIST - Comfort care only] [_] DNR form [...] DO [facility] 04/04/2024, 5:40 AM [email or web address] 04-04-2024 Note Formatting of this n ote [...] - DO NOT do CPR, intubation] [_] [DNR-CROP RESEARCH SCIENTIST - Comfort care only] [_] DNR form [...] patient and/or family/surrogate. Pratibha Avelar DO [facility] 04/04/2024, 5:40 AM T [facility] 04-04-2024 History and physical note Attending [...] min Stress: No Stress Concern Present (04/04/2024) [place] [employer] of Occupational Health - Occupational Stress Questionnaire Feeling of Stress : Not at all Social Connections: Moderately Isolated (04/04/2024) Social Connection and Isolation Panel [NHANES] Frequency of Communication with Friends and Family: More than three times a week Frequency of Social Gatherings with Friends and Family: More than three times a week Attends Anglican Services: 1 to 4 times per year [...] (97.6 F) (Temporal) Resp 16 Ht 5' 4 (1.626 m) Wt 159 lb 8 oz [...] TROPONINI 0.014 Procalcitonin: No results found for: PROCAL Urine Culture: No results found for this or any previous visit. COVID-19 PCR: No results for input(s): COVID19 in the last 72 hours. I reviewed: [...] Services/[facility] Work Phone: 04-04-2024 Note [facility] 04-04-2024 History and physical note Attending History [...] min Stress: No Stress Concern Present (04/04/2024) [place] [employer] of Occupational Health - Occupational Stress Questionnaire Feeling of Stress : Not at all Social Connections: Moderately Isolated (04/04/2024) Social Connection and Isolation Panel [NHANES] Frequency of Communication with Friends and Family: More than three times a week Frequency of Social Gatherings with Friends and Family: More than three times a week Attends Anglican Services: 1 to 4 times per year [...] (97.6 F) (Temporal) Resp 16 Ht 5' 4 (1.626 m) Wt 159 lb 8 oz [...] TROPONINI 0.014 Procalcitonin: No results found for: PROCAL Urine Culture: No results found for this or any previous visit. COVID-19 PCR: No results for input(s): COVID19 in the last 72 hours. I reviewed: [...] Relation: Child Pratibha Avelar DO [facility] documented in this encounter [facility] 04-04-2024 Plan of care note The patient is Moderately Stable - Low risk of patient condition declining or worsening The patient's goals for the shift include met The clinical goals for the shift include met Over the shift, the patient did not make progress toward the following goals. Barriers to progression include . Recommendations to address these barriers include . [facility] 04-04-2024 Emergency department Note Report to Delia Bond RN 04/04/24 034 [facility] 04-04-2024 Emergency department Note Report to Delia Bond RN 04/04/24 034 Multiple attempts made to call report to [facility] with phone number provided by tractor 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 Will try again. Shannon Bond RN 04/04/24 033 [facility] at bedside to transport pt to [facility]. Paperwork with EMS Shannon Bond RN 04/04/24 6705 EMERGENCY DEPARTMENT ENCOUNTER Pt Name: Mel Pop [...] Resource Strain: Low Risk (05/18/2022) Received from [facility] Overall Financial Resource Strain (CARDIA) Difficulty of Paying Living Expenses: Not hard at all Food Insecurity: No Food Insecurity (05/18/2022) Received from [facility] Hunger Vital Sign Worried About Running Out of Food in the Last Year: Never true Ran Out of Food in the Last Year: Never true Transportation Needs: No Transportation Needs (05/18/2022) Received from [facility] PRAPARE - Transportation Lack of Transportation (Medical): No Lack of Transportation (Non-Medical): No Housing Stability: Unknown (05/18/2022) Received from [facility] Housing Stability Vital Sign Unable to [...] Physician EKG interpretation can be found in [facility] RADIOLOGY (Per Emergency Physician): Interpretation per [...] DEPARTMENT COURSE and DIFFERENTIAL DIAGNOSIS/MDM: Vitals: Vitals: 09/203204/03/24204504/03/24220204/03/242203 BP: (!) 142/63 (!) 142/63 (!) 151/86 [...] extremities will heparinize or admit her to [facility] in case she needs an emergent [...] sepsis, or septic shock (If yes use .sepsiscoremeasure): no FINAL IMPRESSION 1. 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 Patient admitted to [facility]. Patient in agreement with plan. Diagnostics [...] or other complaints. documented in this encounter [facility] 04-04-2024 Emergency department Note Multiple attempts made to call report to [facility] with phone number provided by tractor 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 Will try again. Shannon Bond RN 04/04/24 0331 [facility] 04-04-2024 Emergency department Note [facility] at bedside to transport pt to [facility]. Paperwork with EMS Shannon Bond RN 04/04/24 0314 [facility] 04-03-2024 Emergency department Triage note Pt [...] upon arrival. No SOB or other complaints. [facility] 04-03-2024 Physician Emergency department Note EMERGENCY [...] Resource Strain: Low Risk (05/18/2022) Received from [facility] Overall Financial Resource Strain (CARDIA) Difficulty of Paying Living Expenses: Not hard at all Food Insecurity: No Food Insecurity (05/18/2022) Received from [facility] Hunger Vital Sign Worried About Running Out of Food in the Last Year: Never true Ran Out of Food in the Last Year: Never true Transportation Needs: No Transportation Needs (05/18/2022) Received from [facility] PRAPARE - Transportation Lack of Transportation (Medical): No Lack of Transportation (Non-Medical): No Housing Stability: Unknown (05/18/2022) Received from [facility] Housing Stability Vital Sign Unable to [...] 82. I also reviewed external records from [facility]. I discussed their care with [facility]. Consideration for escalation of care with: Admission/observation discussed case with Dr. Blankenship, will place her on heparin, she does have reconstitution past the mid femoral occlusion and she has normal range of motion to the lower extremities but she has severe disease to the lower extremities will heparinize or admit her to [facility] in case she needs an emergent [...] sepsis, or septic shock (If yes use .sepsiscoremeasure): no FINAL IMPRESSION 1. 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 Patient admitted to [facility]. Patient in agreement with plan. Diagnostics [...] [facility] Winifred Cornell DO 04/06/24 1625 [facility] 07-27-2023 History of Present illness Narrative [facility] [address] [place] [address] [place] [phone] Dept: [phone] Dept Mel Pop 1940 [id number] 07/27/2023 HISTORY OF PRESENT ILLNESS: Mel is [...] Percocet [Oxycodone-Acetaminophen] Itching PHYSICAL EXAM: Ht 5' 4 (1.626 m) Wt 159 lb (72.1 kg) [...] improve. Electronically signed by Ming Weinberg MD [facility] Medical [facility] Department of Orthopedic surgery 07/27/2023 5:21 PM Voice recognition was used for portions of this note and although it was reviewed prior to signing some incorrect words or phrases could be present. documented in this encounter [facility] 07-06-2022 Miscellaneous Notes PATIENT INFORMATION Record ID: [id number] Patient Name: Mel [facility]: [facility] Rodessa: [facility] Attending: Iwona Chu Center: Internal Medicine and Geriatrics INSTRUCTIONS All Clear SN to remind patient of next upcoming appointment date, time, location All Clear All Clear All Clear SURVEY INFORMATION Medical/Nurse Photocopier Technician: Inés Tubbs 1. Your discharge instructions [...] documented in this encounter [facility] 06-29-2022 Note HNO ID: [id number] Author: Joana Tolbert RPh Service: Pharmacy Author [...] Post discharge follow up instruction Joana Tolbert [facility] ED June 29, 2022 3:32 PM Medication List [...] Your Medications These medications were sent to [facility] [address] [place] [address] Hours: Tuesday-Tuesday, 8am-4:30pm apixaban 5 mg (74 tabs) ascorbic acid (vitamin C) 500 mg tablet bacitracin 500 unit/gram ointment guaiFENesin 600 mg 12 hr tablet HYDROcodone-acetaminophen 5-325 mg per tablet lactobacillus rhamnosus 10 billion cell capsule metoprolol tartrate (short acting) [address] 40 mg tablet sucralfate 1 gram tablet [facility] 06-29-2022 Note HNO ID: [id number] Author: Kassidy Mejia RN Service: Care Management [...] needs and plan for meeting these needs: [facility] HANDOFF COMMUNICATION: TRANSPORTATION ARRANGEMENTS: Transportation Arrangements: Car ADDITIONAL CONTACT RESOURCES: [facility] was able to approve and deliver home O2. SIGNATURE: Kassidy eMjia RN PATIENT NAME: Mel Castillo DATE: June 29, 2022 TIME: 12:38 PM PAGER/CONTACT #: [phone] [facility] 06-28-2022 Note HNO ID: [id number] Author: Iwona Chu DO Service: Hospital Medicine Author Type: Physician Type: Progress Notes Filed: 06/28/2022 8:58 PM Note Text: Needs O2 arranged before discharge [facility] 06-28-2022 Note HNO ID: [id number] Author: Irene Han RN Service: Care Management [...] In Person (verbalized understanding) Referral sent to [facility] for home going O2. Awaiting ambulatory pox to be completed. Plan to return home with family support and HHC through [facility]. Family to transport. Will need home O2/HC orders, prior to dc. IMM completed. UPDATE @ 1435: [facility] is outside of the patient's service area. Additional DMR referrals sent to [facility] and [facility]; awaiting response. Will need accepting DMR provider and home O2 delivery, prior to discharge. Oxygen/HC orders in [facility]. SIGNATURE: Irene Han RN PATIENT NAME: Mel Castillo DATE: June 28, 2022 TIME: 1:58 PM PAGER/CONTACT #: [phone] [facility] 06-28-2022 Note HNO ID: [id number] Author: Iwona Chu DO Service: Hospital Medicine [...] (Src) 97.2 (Oral) Resp 20 Ht 5' 4 (1.63m) Wt 156 lb 15.5 oz (71.2kg) [...] micropuncture needle and serially upsized to a 5-Turkish sheath. A venogram was then performed, which [...] time, the sheath was upsized to an 8-Turkish sheath. An intravascular ultrasound was performed. This [...] of overt GI (more content not included)... [facility] 06-27-2022 Note HNO ID: [id number] Author: Iwona Chu DO Service: Hospital Medicine [...] (Src) 97.5 (Oral) Resp 18 Ht 5' 4 (1.63m) Wt 156 lb 15.5 oz (71.2kg) [...] micropuncture needle and serially upsized to a 5-Turkish sheath. A venogram was then performed, which [...] time, the sheath was upsized to an 8-Turkish sheath. An intravascular ultrasound was performed. This [...] accept for hh (more content not included)... [facility] 06-26-2022 Note HNO ID: [id number] Author: Iwona Chu DO Service: Hospital Medicine [...] (Src) 97.7 (Oral) Resp 18 Ht 5' 4 (1.63m) Wt 156 lb 15.5 oz (71.2kg) [...] micropuncture needle and serially upsized to a 5-Turkish sheath. A venogram was then performed, which [...] time, the sheath was upsized to an 8-Turkish sheath. An intravascular ultrasound was performed. This [...] 06/22/22 rec subacute/SNF (more content not included)... [facility] 06-25-2022 Note HNO ID: [id number] Author: Heron Ayers MD Service: Hospital Medicine [...] (Src) 97.9 (Oral) Resp 20 Ht 5' 4 (1.63m) Wt 156 lb 15.5 oz (71.2kg) [...] TIMES DAILY Ordered 06/24/22 181 -- 06/25/22 09 apixaban 10 mg tab(s) (ELIQUIS) (apixaban tab(s) (ELIQUIS)) See Hyperspace for full Linked Orders Report. 10 mg ORAL 2 TIMES DAILY Given, 06/25 0841 06/24/22 18107/02/22 0859 06/16/221944 vte current anticoag therapy (mt,ne) 11/30/22 1945 activity - mobilize patient (mt,oh) VTE Prophylaxis: VTE prophylaxis appropriate Disposition: Home Plan of care discussed with: Provider, RN, Patient SIGNATURE: Heron Ayers MD PATIENT NAME: Mel Castillo DATE: June 25, 2022 TIME: 12:03 PM etx [id number] [facility] 06-25-2022 Note HNO ID: [id number] Author: Kassidy Mejia RN Service: Care Management [...] 25, 2022 TIME: 11:30 AM PAGER/CONTACT #: [phone] [facility] 06-24-2022 Note HNO ID: [id number] Author: Richie Yi MD Service: General Internal Medicine Author Type: Physician Type: Progress Notes Filed: 06/24/2022 6:34 PM Note Text: DEPARTMENT OF HOSPITAL MEDICINE PROGRESS NOTE SERVICE DATE: 06/23/2022 SERVICE TIME: 7:19 PM Hospital Medicine/Primary Attending: Richie Yi MD NIGHT AND WEEKEND COVERAGE: [place] COVERAGE: After 7pm, please call cross cover pager #[phone] Subjective Patient was seen today. She is still short of breath, but overall better, other review of systes is unremarkable. MEDICATIONS: Reviewed Objective PHYSICAL EXAM: BP 127/60 Pulse 92 Temp (Src) 97.7 (Axillary) Resp 20 Ht 5' 4 (1.63m) Wt 156 lb 15.5 oz (71.2kg) [...] 0300 06/16/22 194 vte current anticoag therapy ([place], [place]) 06/16/221944 activity - mobilize patient ([place]) VTE Prophylaxis: VTE prophylaxis appropriate Disposition: To be determined Plan of care discussed with: Provider, RN, Patient SIGNATURE: Richie Yi MD PATIENT NAME: Mel Castillo DATE: June 23, 2022 TIME: 7:19 PM etx [id number] [facility] 06-24-2022 Note HNO ID: [id number] Author: SHAQUILLE Kaye Service: Care Management Author Type: Property Portfolio Officer Type: Care Mgt Progress Note Filed: 06/24/2022 [...] 24, 2022 TIME: 1:02 PM PAGER/CONTACT #: [phone] [facility] 06-23-2022 Note HNO ID: [id number] Author: Richie Yi MD Service: General Internal Medicine Author Type: Physician Type: Progress Notes Filed: 06/23/2022 7:28 PM Note Text: DEPARTMENT OF HOSPITAL MEDICINE PROGRESS NOTE SERVICE DATE: 06/23/2022 SERVICE TIME: 7:19 PM Hospital Medicine/Primary Attending: Richie Yi MD NIGHT AND WEEKEND COVERAGE: [place] COVERAGE: After 7pm, please call cross cover pager #[phone] Subjective Patient was seen today. She is still short of breath, stated that she started to smoke more after her a year ago. MEDICATIONS: Reviewed Objective PHYSICAL EXAM: BP 117/51 Pulse 80 Temp (Src) 97.3 (Oral) Resp 18 Ht 5' 4 (1.63m) Wt 156 lb 15.5 oz (71.2kg) [...] Bolus for Subtherapeutic PTTAC) 0-30 mL/hr See [facility] for full Linked Orders Report. 0-3,000 Units/hr INTRAVENOUS CONTINUOUS Rate Verify, 06/23 1617 06/22/22 1028 -- 06/16/221944 vte current anticoag therapy ([place], [place]) 06/16/221944 activity - mobilize patient ([place]) VTE Prophylaxis: VTE prophylaxis appropriate Disposition: To be determined Plan of care discussed with: Provider, RN, Patient SIGNATURE: Richie Yi MD PATIENT NAME: Mel Castillo DATE: June 23, 2022 TIME: 7:19 PM etx [id number] [facility] 06-23-2022 Note HNO ID: [id number] Author: Kassidy Mejia RN Service: Care Management Author Type: Registered Nurse Type: Care Mgt Progress Note Filed: 06/23/2022 4:00 PM Note Text: CARE MANAGEMENT PROGRESS NOTE SERVICE DATE: 06/23/2022 SERVICE TIME: 3:55 PM LOS: 7 days Spoke with pt at the bedside. Discussed SNF placement. Auth obtained for [facility]- pt would be responsible for copay 50% of cost per day for days 1-100. Pt refusing SNF at this time. Pt would like to d/c home with her son and dtr-in-law to ([address] [place] [address]). Pt would agreeable to [facility]- Referrals sent. Pt may need home O2- await ambulatory pulse ox. Family likely able to transport at d/c. CM to follow. SIGNATURE: Kassidy Mejia RN PATIENT NAME: Mel Castillo DATE: June 23, 2022 TIME: 3:53 PM PAGER/CONTACT #: [phone] [facility] 06-22-2022 Note HNO ID: [id number] Author: Dwayne Zaidi MD Service: Hospital Medicine Author Type: Physician Type: Progress Notes Filed: 06/22/2022 6:47 PM Note Text: DEPARTMENT OF HOSPITAL MEDICINE PROGRESS NOTE SERVICE DATE: 06/22/2022 SERVICE TIME: 6:42 PM Hospital Medicine/Primary Attending: Dwayne Zaidi MD NIGHT AND WEEKEND COVERAGE: After 7pm please page [phone] CHIEF COMPLAINT: Follow-up for acute left lower [...] (Src) 97.5 (Oral) Resp 20 Ht 5' 4 (1.63m) Wt 156 lb 15.5 oz (71.2kg) SpO2 95% BMI 26.93 kg/(m2). O2 Therapy: Nasal Cannula, Liters: 2 Constitutional - Vitals as above, not in acute distress Resp - Clear to auscultate both sides, no wheezes, crackles or rales, no labored breathing CVS- RRR. No murmur, gallop or rub, pulse 2+ GI - NTND, bowel sounds normally heard, no mass palpable FIELD HUMAN RESOURCES MANAGER- cranial nerves 2 to 12 grossly [...] TPROT 5.3* -- (more content not included)... [facility] 06-22-2022 Note HNO ID: [id number] Author: Kassidy Mejia RN Service: Care Management Author Type: Registered Nurse Type: Care Mgt Progress Note Filed: 06/22/2022 10:15 AM Note Text: CARE MANAGEMENT PROGRESS NOTE SERVICE DATE: 06/22/2022 SERVICE TIME: 10:15 AM LOS: 6 days IMM Follow Up Copy Given: Yes Copy given to:: Patient Method: In Person (verbal) [facility] is able to accept pt. Precert tasked. Pt will need cot for transport. CM to follow. SIGNATURE: Kassidy Mejia RN PATIENT NAME: Mel Castillo DATE: June 22, 2022 TIME: 10:14 AM PAGER/CONTACT #: [phone] [facility] 06-21-2022 Note HNO ID: [id number] Author: Dwayne Zaidi MD Service: Hospital Medicine Author Type: Physician Type: Progress Notes Filed: 06/21/2022 4:10 PM Note Text: DEPARTMENT OF HOSPITAL MEDICINE PROGRESS NOTE SERVICE DATE: 06/21/2022 SERVICE TIME: 4:04 PM Hospital Medicine/Primary Attending: Dwayne Zaidi MD NIGHT AND WEEKEND COVERAGE: After 7pm please page [phone] CHIEF COMPLAINT: Follow-up for acute left lower extremity DVT. SUBJECTIVE: Pt seen and examined. Just returned from EGD. Asking for food. OBJECTIVE: PHYSICAL EXAM: BP 123/53 Pulse 77 Temp (Src) 97.7 (Oral) Resp 18 Ht 5' 4 (1.63m) Wt 156 lb 15.5 oz (71.2kg) SpO2 97% BMI 26.93 kg/(m2). O2 Therapy: Nasal Cannula, Liters: 2 Constitutional - Vitals as above, not in acute distress Resp - Clear to auscultate both sides, no wheezes, crackles or rales, no labored breathing CVS- RRR. No murmur, gallop or rub, pulse 2+ GI - NTND, bowel sounds normally heard, no mass palpable FIELD HUMAN RESOURCES MANAGER- cranial nerves 2 to 12 grossly [...] on file COPD (chronic obstructive pulmonary disease) ([facility]) POA: Status not on file Tobacco abuse [...] by weight. Has (more content not included)... [facility] 06-21-2022 Note HNO ID: [id number] Author: Kassidy Mejia RN Service: Care Management Author Type: Registered Nurse Type: Care Mgt Progress Note Filed: 06/21/2022 3:44 PM Note Text: CARE MANAGEMENT PROGRESS NOTE SERVICE DATE: 06/21/2022 SERVICE TIME: 3:41 PM LOS: 5 days Spoke with pt at the bedside. Pt states that she lives at home alone. PT/OT rec SNF. Pt would like [facility]- referral sent. Await acceptance. Pt will need precert when medically stable. Pt will need cot for transport. Cm to follow. SIGNATURE: Kassidy Mejia RN PATIENT NAME: Mel Castillo DATE: June 21, 2022 TIME: 3:41 PM PAGER/CONTACT #: [phone] [facility] 06-21-2022 Note HNO ID: [id number] Author: Primo Dodd APRN.SHAMIKA Service: Gastroenterology Author [...] (Src) 98.4 (Oral) Resp 18 Ht 5' 4 (1.63m) Wt 156 lb 15.5 oz (71.2kg) [...] evaluation given evidence (more content not included)... [facility] 06-20-2022 Note HNO ID: [id number] Author: Acacia Hardin DO Service: General Surgery Author Type: Resident Type: Plan of Care Filed: 06/20/2022 1:40 PM Note Text: Plan of Care Dr. 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 Spoke with Dr. Ferrell, orthopaedic surgeon for Dr. Rodriguez, and she states these [...] (Oral) Resp 16 Ht 162.6 cm (5' 4) Wt 71.2 kg (156 lb 15.5 oz) SpO2 97% BMI 26.94 kg/m? 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 Updated regarding plan of care. All questions answered and concerns addressed. Patient still having diarrheal stools that are black. OBJECTIVE: PHYSICAL EXAM: BP 118/56 Pulse 92 Temp (Src) 97.3 (Oral) Resp 16 Ht 5' 4 (1.63m) Wt 156 lb 15.5 oz (71.2kg) SpO2 97% BMI 26.93 kg/(m2). O2 Therapy: Nasal Cannula, Liters: 2 Constitutional - Vitals as above, not in acute distress Resp - Clear to auscultate both sides, no wheezes, crackles or rales, no labored breathing CVS- RRR. No murmur, gallop or rub, pulse 2+ GI - NTND, bowel sounds normally heard, no mass palpable FIELD HUMAN RESOURCES MANAGER- cranial nerves 2 to 12 grossly [...] previous IVC tahmina (more content not included)... [facility] 06-19-2022 Note HNO ID: [id number] Author: Dwayne Zaidi MD Service: Hospital Medicine Author Type: Physician Type: Progress Notes Filed: 06/19/2022 4:33 PM Note Text: DEPARTMENT OF HOSPITAL MEDICINE PROGRESS NOTE SERVICE DATE: 06/19/2022 SERVICE TIME: 4:29 PM Hospital Medicine/Primary Attending: Dwayne Zaidi MD NIGHT AND WEEKEND COVERAGE: After 7pm please page [phone] CHIEF COMPLAINT: Follow-up for acute left lower extremity DVT SUBJECTIVE: Pt seen and examined. Nursing staff reports passage of black tarry stools. Patient having diarrhea as well. OBJECTIVE: PHYSICAL EXAM: BP 135/56 Pulse 82 Temp (Src) 97.2 (Oral) Resp 18 Ht 5' 4 (1.63m) Wt 156 lb 15.5 oz (71.2kg) SpO2 99% BMI 26.93 kg/(m2). O2 Therapy: Nasal Cannula, Liters: 2 Constitutional - Vitals as above, not in acute distress Resp - Clear to auscultate both sides, no wheezes, crackles or rales, no labored breathing CVS- RRR. No murmur, gallop or rub, pulse 2+ GI - NTND, bowel sounds normally heard, no mass palpable FIELD HUMAN RESOURCES MANAGER- cranial nerves 2 to 12 grossly [...] interval not displayed. BMP: Recent Labs 06/19/22 0506/18/2241506/17/22 0506/16/22 034 GLUC 115* 112* 84 122* [...] stools and andrew (more content not included)... [facility] 06-18-2022 Note HNO ID: [id number] Author: Emanuel Hull MD Service: General Surgery [...] Surgery PGY-3 June 18, 2022 5:39 PM [facility] 06-18-2022 Note HNO ID: [id number] Author: Dwayne Zaidi MD Service: Hospital Medicine Author Type: Physician Type: Progress Notes Filed: 06/18/2022 5:37 PM Note Text: DEPARTMENT OF HOSPITAL MEDICINE PROGRESS NOTE SERVICE DATE: 06/18/2022 SERVICE TIME: 5:35 PM Hospital Medicine/Primary Attending: Dwayne Zaidi MD NIGHT AND WEEKEND COVERAGE: After 7pm please page [phone] CHIEF COMPLAINT: Follow-up for acute left lower extremity DVT and acute left lower extremity ischemia SUBJECTIVE: Pt seen and examined. Sleeping at this time. OBJECTIVE: PHYSICAL EXAM: BP 112/51 Pulse 77 Temp (Src) 98.2 (Oral) Resp 18 Ht 5' 4 (1.63m) Wt 156 lb 15.5 oz (71.2kg) SpO2 97% BMI 26.93 kg/(m2). O2 Therapy: Room Air Constitutional - Vitals as above, not in acute distress Resp -nonlabored breathing CVS- RRR. 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 [facility] 06-18-2022 Note HNO ID: [id number] Author: Kassidy Mejia RN Service: Care Management [...] PT/OT debbie- no currently order for therapy, MD notified. Cm to follow clinical progress. SIGNATURE: Kassidy Mejia RN PATIENT NAME: Mel Castillo DATE: June 18, 2022 TIME: 3:46 PM PAGER/CONTACT #: [phone] [facility] 06-17-2022 Note HNO ID: [id number] Author: Eliza Parikh RN Service: Nursing Author Type: Registered Nurse Type: Nursing Progress Note Filed: 06/17/2022 7:24 PM Note Text: Pt to 4200 via bed. Pt tolerated well. [facility] 06-17-2022 Note HNO ID: [id number] Author: Eliza Parikh RN Service: Nursing Author Type: Registered Nurse Type: Nursing Progress Note Filed: 06/17/2022 4:35 PM Note Text: Report to 4[address] Jayne FRAGA [facility] 06-17-2022 Note HNO ID: [id number] Author: Efrain Ivey (Adjunct Professor Of Law) Service: Pharmacy Author Type: Principal Electrical Engineer Type: Plan of Care Filed: 06/17/2022 2:16 PM Note Text: PHARMACY MEDICATION REVIEW Patient Name: Mel Castillo : 1940 The following medications were updated within the EDUCATIONAL COORDINATOR medication list: Medications ADDED to EDUCATIONAL COORDINATOR medication list amLODIPine (NORVASC) 10 mg tablet OTHER Yes Yes dexAMETHasone (DECADRON) 4 mg tablet OTHER Yes Yes lisinopril (ZESTRIL, PRINIVIL) 5 mg tablet OTHER Yes Yes RX filled via [employer] and verified with pt. herself Medications CHANGED on EDUCATIONAL COORDINATOR medication list na Medications REMOVED from EDUCATIONAL COORDINATOR medication list na Additional comments: I was able to talk with the pt. about her home medications. She states she takes the 3 RX medications recorded below. These 3 medications were added to her EDUCATIONAL COORDINATOR list. She has finished Paxlovid and a physician stopped Augmentin per pt. interview Required follow up for nursing. Medication history completed by Historian. No nursing follow up required. The below information represents the best possible medication history: Yes Medication history completed by: Principal Electrical Engineer: Efrain Ivey ([employer]) Source of history: Patient: Reliability of source: Appears reliable, clearly identified: Medication name, Medication dose, Medication route, and Medication frequency and Pharmacy records: Epic e-script [facility] Medication nonadherence identified: No barriers noted Reconciliation completed: No, pharmacist not yet reviewed Patient interested in Bedside Delivery Services or using OP Pharmacy at discharge? No Preferred outpatient pharmacy: [id number] [place] [address] - [address] [phone] Allergies: Percocet [Oxycodone* Itching Prior to Admission [...] once daily. Facility-Administered Medications: None Efrain Ivey ([employer]) phone [phone] 06/17/2022 [facility] 06-17-2022 Note HNO ID: [id number] Author: Ladan Adame RN Service: Care Management [...] 17, 2022 TIME: 12:37 PM PAGER/CONTACT #: [phone] [facility] 06-17-2022 Note HNO ID: [id number] Author: Eliza Parikh RN Service: Nursing Author Type: Registered Nurse Type: Nursing Progress Note Filed: 06/17/2022 10:40 AM Note Text: Echo at bedside [facility] 06-16-2022 Note HNO ID: [id number] Author: Cirilo Alaniz APRN.CRNA Service: Anesthesiology Author Type: Nurse Datastage Consultant Type: Anesthesia Procedure Notes Filed: 06/16/2022 5:04 PM Note Text: ANESTHESIOLOGY PROCEDURE NOTE Airway General Information Procedure Start Time/Medication Administration: 06/16/2022 4:29 PM Patient location during procedure: OR Timeout Performed Pre-procedure: timeout performed Consent Obtained: Yes Patient identity confirmed: arm band and patient Staffing DIRECTOR OF MARKETING OPERATIONS: Cirilo Alainz APRN.DIRECTOR OF MARKETING OPERATIONS Indications and Patient Condition Indications for airway management: anesthesia Preoxygenated: yes anesthesia circuit Method: asleep Difficult Mask: No Final Airway Details Final airway type: endotracheal airway Final Endotracheal Airway: ETT Cuffed: yes Successful intubation technique: video laryngoscopy Devices used: Contour Endotracheal tube insertion site: oral Blade: Kit Blade size: #3 ETT size (mm): 7.0 Measured from: lips Measurement (cm): 21 Placement verified by: chest auscultation and capnometry Cormack-Lehane Classification: grade I - full view of glottis Number of attempts at approach: 1 Airway not difficult SIGNATURE: Cirilo Alaniz APRN.CRNA PATIENT NAME: Mel Castillo DATE: June 16, 2022 TIME: 5:03 PM CSN: [id number] [facility] 06-16-2022 Note HNO ID: [id number] Author: Jean Pierre Gamboa RPh Service: Pharmacy [...] patient. Signature: Jean Pierre Gamboa tali Pager/Extension: [phone] [facility] 05-17-2022 History of Present illness [...] be seen in the emergency room at [facility] for probable admission for IV antibiotics and airway concern. Patient understands this and will leave shortly. Josiah Barnes MD Findings will be communicated to the referring physician via mail or electronic medical record. documented in this encounter [facility] 05-14-2022 Instructions Jared Velazquez PA-C - [...] documented in this encounter [facility] 05-14-2022 History of Present illness Narrative [...] 71 Resp 16 Ht 162.6 cm (5' 4) Wt 72.6 kg (160 lb) SpO2 98% [...] which included preparing to see the patient, [id number] patient care, completing clinical documentation, performing a medically appropriate examination, counseling and educating the patient/family/caregiver, and ordering medications, tests, or procedures. documented in this encounter 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 Diagnosis Acute bacterial sialadenitis- Primary Bashir's, angina [facility] Diagnosis Localized swelling, mass and lump, neck Swelling, mass, or lump in head and neck [facility] Diagnosis Localized swelling, mass and lump, neck Swelling, mass, or lump in head and neck [facility] Diagnosis Localized swelling, mass and lump, neck- Primary Swelling, mass, or lump in head and neck Localized swelling, mass and lump, neck Swelling, mass, or lump in head and neck [facility] Diagnosis Other specified soft tissue disorders [facility] Diagnosis Localized swelling, mass and lump, neck- Primary Swelling, mass, or lump in head and neck Localized swelling, mass and lump, neck Swelling, mass, or lump in head and neck [facility] Diagnosis Abnormal findings on diagnostic imaging of other specified body structures Pain in left leg documented in this encounter [facility]* 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documented in this encounter [facility]* Diagnosis Other specified soft tissue disorders- Primary Other specified soft tissue disorders documented in this encounter [facility]* Diagnosis Abnormal findings on diagnostic imaging of other specified body structures- Primary Pain in left leg Abnormal findings on diagnostic imaging of other specified body structures Pain in left leg documented in this encounter [facility]* Diagnosis Peripheral arterial disease (HCC)- Primary Unspecified peripheral vascular disease Right leg pain Pain in soft tissues of limb Peripheral arterial disease (HCC) Unspecified peripheral vascular disease Right leg weakness Muscle weakness (generalized) Atrial fibrillation, unspecified type (HCC) Ischemic leg Unspecified circulatory system disorder documented in this encounter [facility]* Diagnosis Deep vein thrombosis (DVT) of lower extremity, unspecified chronicity, unspecified laterality, unspecified vein (HCC)- Primary [facility] Diagnosis Atrial fibrillation, unspecified type (HCC) Acute venous embolism and thrombosis of deep vessels of proximal end of right lower extremity (HCC) [facility] Diagnosis Acute deep vein thrombosis (DVT) of iliac vein of right lower extremity (HCC)- Primary PAD (peripheral artery disease) (HCC) Unspecified peripheral vascular disease documented in this encounter [facility]* Diagnosis Deep vein thrombosis (DVT) of lower extremity, unspecified chronicity, unspecified laterality, unspecified vein (HCC) Atrial fibrillation, unspecified type (HCC) Acute venous embolism and thrombosis of deep vessels of proximal end of right lower extremity (HCC) [facility] Diagnosis Atrial fibrillation, unspecified type (HCC) Acute venous embolism and thrombosis of deep vessels of proximal end of right lower extremity (HCC) [facility]* Diagnosis Atrial fibrillation, unspecified type (HCC) Acute venous embolism and thrombosis of deep vessels of proximal end of right lower extremity (HCC) documented in this encounter [facility] note* Diagnosis Paroxysmal atrial fibrillation (HCC) Atrial fibrillation documented in this encounter [facility] note* Diagnosis Atrial fibrillation, unspecified type (HCC) [...] or 3b CKD (HCC) 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 (HCC) 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 Nicotine use disorder Tobacco use disorder Abnormal echocardiogram Nonspecific (abnormal) findings on radiological and other examination of other intrathoracic organs Left atrial mass documented in this encounter [facility] note* Diagnosis Retinal detachment, right- Primary Unspecified retinal detachment Vision loss of right eye Unqualified visual loss, one eye Acute intractable headache, unspecified headache type Visual disturbance, subjective Unspecified subjective visual disturbance Vision loss of right eye Unqualified visual loss, one eye Visual disturbance, subjective Unspecified subjective visual disturbance documented in this encounter [facility] note* Diagnosis 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 note* Diagnosis Postoperative eye state- Primary Other states following surgery of eye and adnexa Hemorrhagic choroidal detachment of right eye Hemorrhagic choroidal detachment Pseudophakia, right eye Lens replaced by other means Subluxation of right lens Subluxation of lens documented in this encounter [facility] note* Diagnosis Paroxysmal atrial fibrillation (HCC)- Primary Atrial fibrillation Paroxysmal atrial fibrillation (HCC) Atrial fibrillation documented in this encounter [facility] note* Diagnosis Postoperative eye state Other states following surgery of eye and adnexa Hemorrhagic choroidal detachment of right eye Hemorrhagic choroidal detachment Pseudophakia, right eye Lens replaced by other means Subluxation of right lens Subluxation of lens Hemorrhagic choroidal detachment of right eye Hemorrhagic choroidal detachment [facility] Diagnosis Post-operative state- Primary Other postprocedural status [facility] Diagnosis Postoperative eye state Other states following surgery of eye and adnexa Hemorrhagic choroidal detachment of right eye Hemorrhagic choroidal detachment Pseudophakia, right eye Lens replaced by other means Subluxation of right lens Subluxation of lens [facility] Diagnosis Aspiration pneumonitis (CMS/HCC) (HCC)- Primary Pneumonitis due to inhalation of food or vomitus Aspiration pneumonitis (CMS/HCC) (HCC) Pneumonitis due to inhalation of food or vomitus Vomiting and diarrhea LORENZA (acute kidney injury) (HCC) [facility] Diagnosis Acute deep vein thrombosis (DVT) of iliac vein of right lower extremity (HCC)- Primary PAD (peripheral artery disease) (HCC) Unspecified peripheral vascular disease [facility]* Diagnosis Postoperative eye state Other states following surgery of eye and adnexa Hemorrhagic choroidal detachment of right eye Hemorrhagic choroidal detachment Pseudophakia, right eye Lens replaced by other means Subluxation of right lens Subluxation of lens [facility] Diagnosis 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 Hemorrhagic choroidal detachment Right retinal detachment Unspecified retinal detachment Postoperative eye state Other states following surgery of eye and adnexa Pseudophakia, right eye Lens replaced by other means Subluxation of right lens Subluxation of lens [facility] noteNo assessment information availableWWVUMedicine [facility] Work Phone: Evaluation note* Diagnosis PAD (peripheral artery disease) (HCC)- Primary Unspecified peripheral vascular disease Skin ulcer of toe of right foot, limited to breakdown of skin (HCC) [facility] Diagnosis Critical limb ischemia of right lower extremity (HCC)- Primary [facility]* Diagnosis Pre-op evaluation- Primary Skin ulcer [...] circulatory system, NEC [facility] Diagnosis Skin ulcer of toe of right foot, limited to breakdown of skin (HCC) PAD (peripheral artery disease) (HCC) Unspecified peripheral vascular disease Aftercare following surgery of the circulatory system Aftercare following surgery of the circulatory system, NEC [facility] Diagnosis Aftercare following surgery of the circulatory system- Primary Aftercare following surgery of the circulatory system, NEC PAD (peripheral artery disease) (HCC) Unspecified peripheral vascular disease [facility] Diagnosis 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 note* Diagnosis Acute deep vein thrombosis (DVT) of proximal vein of lower extremity, unspecified laterality (HCC)- Primary [facility] (narrative)No reason for referral information availableWWVUMedicine [facility] Work Phone: Reason for visit Narrative* Imaging (Routine) - Closed Specialty Diagnoses / Procedures Referred By Elvin leyva Referred To Contact Cardiology Diagnoses Paroxysmal atrial fibrillation (HCC) Procedures Transthoracic echocardiogram (TTE) complete with contrast, bubble, strain, and 3D PRN AL ECHO TTHRC R-T 2D W/WOM-MODE COMPL SPEC&COLR D AL TTE W OR WO FOL WCNICK,Jared De La Garza MD [address] [place] [phone] Phone: tel: fax: Referral ID Status Reason Start Date Expiration Date Visits Re quested Visits Authorized [id number] Closed 04/20/2024 04/20/2025 1 1 [facility] for visit Narrative* Auth/Cert (Routine) Specialty Diagnoses / Procedures Referred By Elvin leyva Referred To Contact Diagnoses Aspiration pneumonitis (CMS/HCC) (HCC) LORENZA (acute kidney injury) (HCC) Vomiting and diarrhea Procedures . Abbi Long DO [address] [place] [address] Phone: tel: fax: [facility] [address] [place] [address] Phone: tel: Referral ID Status Reason Start Date Expiration Date Visits Re quested Visits Authorized [id number] 1 1 [facility] [employer] for visit Narrative* Auth/Cert (Routine) Specialty Diagnoses [...] CATH RS&I CHG AORTOGRAPHY ABDOMINAL SERIALOGRAPHY RS&I AL INTRODUCTION CATHETER AORTA AL REVSC OPN/PRG FEM/POP W/ANGIOPLASTY UNI AL REVSC OPN/PRQ TIB/PAMELA W/ANGIOPLASTY UNI AL REVSC OPN/PRQ TIB/PAMELA W/STNT/ANGIOP SM VSL AL REVSC OPN/PRQ FEM/POP W/STNT/ANGIOP SM VSL AORTOILIAC ANGIOGRAPHY, RIGHT LOWER EXTREMITY ANGIOGRAPHY WITH RUNOFF, POSSIBLE SUPERFICIAL FEMORAL ARTERY/POPLITEAL/TIBIAL ANGIOPLASTY/STENTING Kristyn Blankenship MD [address] [place] [address] Phone: tel: fax: [facility] MAIN OR [address] [place] [address] Phone: tel: Referral ID Status Reason Start Date Expiration Date Visits Re quested Visits Authorized [id number] 1 1 [facility] for visit Narrative* Imaging (Routine) - Closed Specialty Diagnoses / Procedures Referred By Elvin leyva Referred To Contact Vascular Surgery / Radiology Diagnoses Skin ulcer of toe of right foot, limited to breakdown of skin (HCC) PAD (peripheral artery disease) (HCC) Aftercare following surgery of the circulatory system Procedures Vascular US lower extremity arterial duplex right with MICHELLE Kristyn Blankenship MD [address] [place] [address] Phone: tel: fax: [facility] [address] [place] [address] Phone: tel: fax: Referral ID Status Reason Start Date Expiration Date Visits Re quested Visits Authorized [id number] Closed 12/05/2024 12/05/2025 1 1 [facility] Discharge Instructions * Attachments The following [...] Documents on File Type Date Recorded Patient [employer] Expl anation Power of Potato Sorter 04/06/2024 10:04 AM Date Activated Date Inactivated [...] Documents on File Type Date Recorded Patient [employer] Expl anation Power of Potato Sorter 04/16/2024 1:26 PM Power of Potato Sorter 04/06/2024 10:04 AM Healthcare Agents on File [...] Documents on File Type Date Recorded Patient [employer] Expl anation Power of Potato Sorter 04/16/2024 1:26 PM Power of Potato Sorter 04/06/2024 10:04 AM Date Activated Date Inactivated [...] Documents on File Type Date Recorded Patient [employer] Expl anation Advance Directive(s) 06/27/2024 12:58 PM [...] Documents on File Type Date Recorded Patient [employer] Expl anation Advance Directive(s) 06/27/2024 12:58 PM [...] Documents on File Type Date Recorded Patient [employer] Expl anation DNR (Do Not Resuscitate) 07/13/2024 10:35 AM Power of Potato Sorter 04/16/2024 1:26 PM Power of Potato Sorter 04/06/2024 10:04 AM Date Activated Date Inactivated [...] Documents on File Type Date Recorded Patient [employer] Expl anation DNR (Do Not Resuscitate) 07/13/2024 10:35 AM Power of Potato Sorter 04/16/2024 1:26 PM Power of Potato Sorter 04/06/2024 10:04 AM Date Activated Date Inactivated [...] First Alternate Health Care Agent Nadira Castillo [id number]-ugz First Alternat e Health Care Agent Healthcare Agents on File Name Relationship Healthcare Agent Relationship Communication Damaris DO NOT CALL-TERMINALLY ILL [place] Friend First Alternate Health Care Agent Nadira Castillo Qfixbrab-[id number] First Alternat e Health Care Agent Healthcare Agents on File Name Relationship Healthcare Agent Relationship Communication Damaris DO NOT CALL-TERMINALLY ILL [place] Friend First Alternate Health Care Agent Nadira Castillo Dsuckuxx-[id number] First Alternat e Health Care Agent Date Activated Date Inactivated Comments 08/03/2024 10:17 AM 08/16/2024 4:47 PM Healthcare Agents on File Name Relationship Healthcare Agent Relationship Communication Damaris DO NOT CALL-TERMINALLY ILL [place] Friend First Alternate Health Care Agent Nadira Castillo Sljsnxjy-ad-xhv First Alternat e Health Care Agent Healthcare Agents on File Name Relationship Healthcare Agent Relationship Communication Damaris DO NOT CALL-TERMINALLY ILL [place] Friend First Alternate Health Care Agent Nadira Castillo Itxtfocf-oh-gnt First Alternat e Health Care Agent Healthcare Agents on File Name Relationship Healthcare Agent Relationship Communication Damaris DO NOT CALL-TERMINALLY ILL [place] Friend First Alternate Health Care Agent Nadira Castillo Fpkdcozd-ks-rpl First Alternat e Health Care Agent Healthcare Agents on File Name Relationship Healthcare Agent Relationshi p Communication Nadira Castillo Qumbbnfo-ck-oqn First Alternat e Health Care Agent Healthcare Agents on File Name Relationship Healthcare Agent Relationshi p Communication Nadira Castillo Xtakgwia-wo-usa First Alternat e Health Care Agent Summary [...] CENTER 60-74 MINUTES Jared Velazquez PA-C [address] [place] [address] Referral ID Status Reason Start Date Expiration Date Visits Requested Visits Authorized [id number] Authorized PCP Requested Referral 2 05/14/2023 1 1 Specialty Diagnoses / Procedures Referred By Elvin leyva Referred To Contact Radiology Diagnoses Localized swelling, mass and lump, neck Procedures CT soft tissue neck w IV contrast Jared Evans MD [address] [place] [phone] Referral ID Status Reason Start Date Expiration Date Visits Re quested Visits Authorized [id number] Closed 03/08/2023 04/07/2023 1 1 Specialty Diagnoses / Procedures Referred By Elvin leyva Referred To Contact Cardiology Diagnoses Other specified soft tissue disorders Procedures Vascular US lower extremity venous duplex left Jared Evans MD [address] [place] [phone] Referral ID Status Reason Start Date Expiration Date V isits Requested Visits Authorized [id number] Pending Review 05/24/2023 05/23/2024 1 1 Specialty Diagnoses / Procedures Referred By Elvin leyva Referred To Contact Radiology Diagnoses Abnormal findings on diagnostic imaging of other specified body structures Pain in left leg Procedures MR tibia fibula left w and wo IV contrast Jared Evans MD [address] [place] [phone] Referral ID Status Reason Start Date Expiration Date Visits Re quested Visits Authorized [id number] Closed 06/01/2023 05/31/2024 1 1 Health Concerns Infection Onset Date Last Indicated Resolved Time COVID-19 Confirmed Comment:First positive per [facility] system 06/02/2022. 06/16/2022 06/16/2022 06/19/2022 5:[address] Chief Complaint and Reason for Visit Chief Complaint Admit Date LABWORK August 20, 2024 5 :22am LABWORK September 03, 2024 5:00am CUSTODIAL LAB WORK September 03 8:18am CUSTODIAL LAB WORK September 10 5:00am Chief Complaint Admit Date LABWORK August 20, 2024 5 :22am LABWORK September 03, 2024 5:00am CUSTODIAL LAB WORK September 03 8:18am CUSTODIAL LAB WORK September 10 5:00am CUSTODIAL LAB WORK September 17, 2024 4: 00am Chief Complaint Admit Date LABWORK August 20, 2024 5 :22am LABWORK September 03, 2024 5:00am CUSTODIAL LAB WORK September 03 8:18am CUSTODIAL LAB WORK September 10 5:00am CUSTODIAL LAB WORK September 17, 2024 4: 00am CUSTODIAL LAB WORK October 08, 2024 5 :00am Additional Source Comments Reason for Visit (unrecogniz ed section and content) Reason Comments Post-op (Ophthalmology) Right Eye Specialty Diagnoses / Procedures Referred By Elvin leyva Referred To Contact HOSP INPATIENT Diagnoses Retinal detachment Acute retinal detachment Retinal detachment Procedures [facility]AL [facility] TRE[facility] [address] [place] [address] Referral ID Status Reason Start Date Expiration Date Visits Re quested Visits Authorized [id number] 1 1 Reason Comments Hemorrhagic choroidal detachment [...] CENTER 60-74 MINUTES Jared Velazquez PA-C [address] [place] [address] Referral ID Status Reason Start Date Expiration Date V isits Requested Visits Authorized [id number] Closed PCP Requested Referral 05/14/2022 05/14/2023 1 1 Reason Comments Follow Up Gyant interaction - F/U - attempt made. No answer. Reason Comments Follow Up Phone Call All Clear Specialty Diagnoses / Procedures Referred By Elvin leyva Referred To Contact Radiology Diagnoses Localized swelling, mass and lump, neck Procedures CT soft tissue neck w IV contrast Jared Evans MD [address] [place] [phone] Referral ID Status Reason Start Date Expiration Date Visits Re quested Visits Authorized [id number] Closed 03/08/2023 04/07/2023 1 1 Specialty Diagnoses / Procedures Referred By Elvin lyeva Referred To Contact Cardiology Diagnoses Other specified soft tissue disorders Procedures Vascular US lower extremity venous duplex left Jared Evans MD [address] [place] [phone] Referral ID Status Reason Start Date Expiration Date V isits Requested Visits Authorized [id number] Pending Review 05/24/2023 05/23/2024 1 1 Specialty Diagnoses / Procedures Referred By Contac t Referred To Contact Radiology Diagnoses Abnormal findings on diagnostic imaging of other specified body structures Pain in left leg Procedures MR tibia fibula left w and wo IV contrast Jared Evans MD [address] [place] [phone] Referral ID Status Reason Start Date Expiration Date Visits Re quested Visits Authorized [id number] Closed 06/01/2023 05/31/2024 1 1 Reason Comments New Patient Mass left LE Specialty Diagnoses / Procedures Referred By Contac t Referred To Contact Sports Medicine Diagnoses Pain in leg, unspecified Jared Evans MD [address] [place] [phone] [place] [address] Referral ID Status Reason Start Date Expiration Date Visits Re quested Visits Authorized [id number] Closed 07/06/2023 07/05/2024 1 1 Reason Comments Numbness Leg Swelling Specialty Diagnoses / Procedures Referred By Contac t Referred To Contact Diagnoses Right leg pain Peripheral arterial disease (HCC) Right leg weakness Atrial fibrillation, unspecified type (HCC) Procedures . Pratibha Avelar, [address] [place] [address] [phone] Referral ID Status Reason Start Date Expiration Date Visits Re quested Visits Authorized [id number] 1 1 Reason Comments Follow-up 1st follow up RLE me chanical thrombectomy 04/06/24 (Krzysztof) Reason Onset Date Comments Med Refill 04/27/2024 Specialty Diagnoses / Procedures Referred By Contac t Referred To Contact Diagnoses [I63.9] - Cerebral infarction [facility] [address] [place] [address] Referral ID Status Reason Start Date Expiration Date V isits Requested Visits Authorized [id number] New Request 06/20/2024 08/19/2024 Reason Comments Eye Problem Pt reports blurred v ision, dizziness, and headache. LNW 07/04/24 @ 2130. Hx of strokes x 2, HTN, Afib, and right eye retinal detachment. Specialty Diagnoses / Procedures Referred By Elvin leyva Referred To Contact Diagnoses Retinal detachment, right Vision loss of right eye Procedures . Silvio Peres MD [address] [place] [address] Phone: tel: fax: [facility] EMERGENCY DEPT [address] [place] [phone] Phone: tel: Referral ID Status Reason Start Date Expiration Date Visits Re quested Visits Authorized [id number] 1 1 Reason Comments Eye Pain Right [...] OF VITREOUS, CHOROIDAL FLUID, PARS PLANA APPROACH [facility] [address] [address] Referral ID Status Reason Start Date Expiration Date Visits Re quested Visits Authorized [id number] 1 1 Reason Comments 1 week post [...] and diarrhea Procedures . Abbi Long DO [address] [place] [address] Phone: tel: fax: [facility] [address] [place] [address] Phone: tel: Referral ID Status Reason Start Date Expiration Date Visits Re quested Visits Authorized [id number] 1 1 Reason Comments Follow-up 3 month follow up, P AD check ([facility] [place] [facility] [place]) Reason Comments Post-op (Ophthalmology) Right Eye 1 marisela h Reason Comments Post op OD Reason Comments Follow-up R leg pain with grea t toe wound-PVR and CTA w runoff 03/2024 Reason Comments Follow-up 1st follow up RLE an juliana, possible SFA/pop/tib angioplasty/stenting 11/22/24 Reason Comments 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; 2nd follow up RLE angio, SFA/pop/tib angioplasty/stenting 11/22/24 ([place] [facility] [phone]) Reason Comments Post-op (Ophthalmology) Right Eye Retinal Detachment OD Eye Crusting OD In the mornings Reason Comments Follow-up INFORMATION SOURCE (unrecogn ized section and content) DATE CREATED AUTHOR 03/13/2020 [facility] DATE CREATED AUTHOR AUTHOR'S ORGANIZ ATION 06/30/2022 [facility] DATE CREATED AUTHOR AUTHOR'S ORGANIZ ATION 07/10/2024 [facility] DATE CREATED AUTHOR AUTHOR'S ORGANIZ ATION 12/14/2024 [facility] DATE CREATED AUTHOR AUTHOR'S ORGANIZ ATION 01/05/2025 [facility] DATE CREATED AUTHOR AUTHOR'S ORGANIZ ATION 03/17/2025 [facility] DATE CREATED AUTHOR AUTHOR'S ORGANIZ ATION 05/29/2025 [facility] Source Comments (unrecognize d section and content) In the event this informatio n is protected by the Federal Confidentiality of Alcohol and Drug Abuse Patient Records regulations: The Federal rules restrict any use of the information to criminally investigate or prosecute any alcohol or drug abuse patient.[facility] the event this information is protected by the Federal Confidentiality of Alcohol and Drug Abuse Patient Records regulations: The Federal rules restrict any use of the information to criminally investigate or prosecute any alcohol or drug abuse patient.[facility] the event this information is protected by the Federal Confidentiality of Alcohol and Drug Abuse Patient Records regulations: The Federal rules restrict any use of the information to criminally investigate or prosecute any alcohol or drug abuse patient.[facility] the event this information is protected by the Federal Confidentiality of Alcohol and Drug Abuse Patient Records regulations: The Federal rules restrict any use of the information to criminally investigate or prosecute any alcohol or drug abuse patient.[facility] the event this information is protected by the Federal Confidentiality of Alcohol and Drug Abuse Patient Records regulations: The Federal rules restrict any use of the information to criminally investigate or prosecute any alcohol or drug abuse patient.[facility] the event this information is protected by the Federal Confidentiality of Alcohol and Drug Abuse Patient Records regulations: The Federal rules restrict any use of the information to criminally investigate or prosecute any alcohol or drug abuse patient.[facility] the event this information is protected by the Federal Confidentiality of Alcohol and Drug Abuse Patient Records regulations: The Federal rules restrict any use of the information to criminally investigate or prosecute any alcohol or drug abuse patient.[facility] the event this information is protected by the Federal Confidentiality of Alcohol and Drug Abuse Patient Records regulations: The Federal rules restrict any use of the information to criminally investigate or prosecute any alcohol or drug abuse patient.[facility] the event this information is protected by the Federal Confidentiality of Alcohol and Drug Abuse Patient Records regulations: The Federal rules restrict any use of the information to criminally investigate or prosecute any alcohol or drug abuse patient.[facility] the event this information is protected by the Federal Confidentiality of Alcohol and Drug Abuse Patient Records regulations: The Federal rules restrict any use of the information to criminally investigate or prosecute any alcohol or drug abuse patient.[facility] the event this information is protected by the Federal Confidentiality of Alcohol and Drug Abuse Patient Records regulations: The Federal rules restrict any use of the information to criminally investigate or prosecute any alcohol or drug abuse patient.[facility] the event this information is protected by the Federal Confidentiality of Alcohol and Drug Abuse Patient Records regulations: The Federal rules restrict any use of the information to criminally investigate or prosecute any alcohol or drug abuse patient.[facility] the event this information is protected by the Federal Confidentiality of Alcohol and Drug Abuse Patient Records regulations: The Federal rules restrict any use of the information to criminally investigate or prosecute any alcohol or drug abuse patient.[facility] the event this information is protected by the Federal Confidentiality of Alcohol and Drug Abuse Patient Records regulations: The Federal rules restrict any use of the information to criminally investigate or prosecute any alcohol or drug abuse patient.[facility] HospitalIn the event this information is protected by the Federal Confidentiality of Alcohol and Drug Abuse Patient Records regulations: The Federal rules restrict any use of the information to criminally investigate or prosecute any alcohol or drug abuse patient.[facility] Hospital[facility] the event this information is protected by the Federal Confidentiality of Alcohol and Drug Abuse Patient Records regulations: The Federal rules restrict any use of the information to criminally investigate or prosecute any alcohol or drug abuse patient.[facility] HospitalIn the event this information is protected by the Federal Confidentiality of Alcohol and Drug Abuse Patient Records regulations: The Federal rules restrict any use of the information to criminally investigate or prosecute any alcohol or drug abuse patient.[facility] HospitalIn the event this information is protected by the Federal Confidentiality of Alcohol and Drug Abuse Patient Records regulations: The Federal rules restrict any use of the information to criminally investigate or prosecute any alcohol or drug abuse patient.[facility] HospitalIn the event this information is protected by the Federal Confidentiality of Alcohol and Drug Abuse Patient Records regulations: The Federal rules restrict any use of the information to criminally investigate or prosecute any alcohol or drug abuse patient.[facility] Care Teams (unrecognized sec tion and content) Manager Ed Relationship Specialty Start Date End Date Pcp, No PCP - General 01/30/22 08/17/22 Manager Ed Relationship Specialty Start Date End Date Pcp, No PCP - General 01/30/22 08/17/22 Manager Ed Relationship Specialty Start Date End Date Jared Evans MD [address] [place] [phone] PCP - General Family Medicine 05/18/22 Manager Ed Relationship Specialty Start Date End Date Jared Evans MD [address] [place] [address] PCP - General Family Medicine 05/18/22 Manager Ed Relationship Specialty Start Date End Date Jared Evans MD [address] [place] [address] PCP - General Family Medicine 05/18/22 Manager Ed Relationship Specialty Start Date End Date Jared Evans MD [address] [place] [address] PCP - General 03/06/20 Manager Ed Relationship Specialty Start Date End Date Jared Evans MD [address] [place] [address] PCP - General 03/06/20 Manager Ed Relationship Specialty Start Date End Date Jared Evans MD [address] [place] [address] PCP - General 03/06/20 Manager Ed Relationship Specialty Start Date End Date Jared Evans MD [address] [place] [address] PCP - General 03/06/20 Manager Ed Relationship Specialty Start Date End Date Jared Evans MD [address] [place] [address] PCP - General 03/06/20 Manager Ed Relationship Specialty Start Date End Date Jared Evans MD [address] [place] [address] PCP - General 03/06/20 Manager Ed Relationship Specialty Start Date End Date Jared Evans MD [address] [place] [address] PCP - General 03/06/20 Manager Ed Relationship Specialty Start Date End Date Jared Evans MD [address] [place] [address] PCP - General 03/06/20 Manager Ed Relationship Specialty Start Date End Date Jared Evans MD [address] [place] [address] PCP - General 03/06/20 Manager Ed Relationship Specialty Start Date End Date Jared Evans MD [address] [place] [address] PCP - General 03/06/20 Manager Ed Relationship Specialty Start Date End Date Jared Evans MD [address] [place] [address] PCP - General 03/06/20 Manager Ed Relationship Specialty Start Date End Date Jared Evans MD [address] [place] [address] PCP - General 03/06/20 Manager Ed Relationship Specialty Start Date End Date Jared Evans MD [address] [place] [address] PCP - General 03/06/20 Henok Hernandez PA-C [address] [place] [address] Physician Photocopier Technician Physician Photocopier Technician 04/19/24 Manager Ed Relationship Specialty Start Date End Date Jared Evans MD [address] [place] [address] PCP - General 03/06/20 Henok Hernandez PA-C [address] [place] [address] Physician Photocopier Technician Physician Photocopier Technician 04/19/24 Manager Ed Relationship Specialty Start Date End Date Jared Evans MD [address] [place] [address] PCP - General 03/06/20 Henok Hernandez PA-C [address] [place] [address] Physician Photocopier Technician Physician Photocopier Technician 04/19/24 Manager Ed Relationship Specialty Start Date End Date Jared Evans MD [address] [place] [address] PCP - General 03/06/20 Henok Hernandez PA-C [address] [place] [address] Physician Photocopier Technician Physician Photocopier Technician 04/19/24 Manager Ed Relationship Specialty Start Date End Date Jared Evans MD [address] [place] [address] PCP - General 03/06/20 Henok Hernandez PA-C [address] [place] [address] Physician Photocopier Technician Physician Photocopier Technician 04/19/24 Manager Ed Relationship Specialty Start Date End Date Jared Evans MD [address] [place] [address] PCP - General 03/06/20 Henok Lantigua PA-C [address] [place] [address] Physician Photocopier Technician Physician Photocopier Technician 04/19/24 Manager Ed Relationship Specialty Start Date End Date Jared Evans MD [address] [place] [address] PCP - General 03/06/20 Henok Lantigua PA-C [address] [place] [address] Physician Photocopier Technician Physician Photocopier Technician 04/19/24 Manager Ed Relationship Specialty Start Date End Date Jared Evans MD [address] [place] [address] PCP - General Family Medicine 05/18/22 Manager Ed Relationship Specialty Start Date End Date Jared Evans MD [address] [place] [address] PCP - General Family Medicine 05/18/22 Manager Ed Relationship Specialty Start Date End Date Jared Evans MD [facility] [place] [address] PCP - General 03/06/20 Henok Lantigua PA-C [address] [place] [address] Physician Photocopier Technician Physician Photocopier Technician 04/19/24 Manager Ed Relationship Specialty Start Date End Date Jared Evans MD [address] [place] [address] PCP - General Family Medicine 05/18/22 Manager Ed Relationship Specialty Start Date End Date Jared Evans MD [address] [place] [address] PCP - General Family Medicine 05/18/22 Manager Ed Relationship Specialty Start Date End Date Jared Evans MD [address] [place] [address] PCP - General Family Medicine 05/18/22 Manager Ed Relationship Specialty Start Date End Date Jared Evans MD [address] [place] [address] PCP - General Family Medicine 05/18/22 Manager Ed Relationship Specialty Start Date End Date Jared Evans MD [address] [place] [address] PCP - General Family Medicine 05/18/22 Manager Ed Relationship Specialty Start Date End Date Jared Evans MD [address] [place] [address] PCP - General 03/06/20 Henok Lantigua PA-C [address] [place] [address] Physician Photocopier Technician Physician Photocopier Technician 04/19/24 Manager Ed Relationship Specialty Start Date End Date Jared Evans MD [address] [place] [address] PCP - General Family Medicine 05/18/22 Manager Ed Relationship Specialty Start Date End Date Jared Evans MD [address] [place] [address] PCP - General Family Medicine 05/18/22 Manager Ed Relationship Specialty Start Date End Date Jared Evans MD [address] [place] [address] PCP - General Family Medicine 05/18/22 Manager Ed Relationship Specialty Start Date End Date Jared Evans MD [address] [place] [address] PCP - General 03/06/20 Henok Lantigua PA-C [address] [place] [address] Physician Photocopier Technician Physician Photocopier Technician 04/19/24 Manager Ed Relationship Specialty Start Date End Date Jared Evans MD [address] [place] [address] PCP - General 03/06/20 Henok Lantigua PA-C [address] [place] [address] Physician Photocopier Technician Physician Photocopier Technician 04/19/24 Manager Ed Relationship Specialty Start Date End Date Jared Evans MD [address] [place] [address] PCP - General 03/06/20 Henok Lantigua PA-C [address] [place] [address] Physician Photocopier Technician Physician Photocopier Technician 04/19/24 [facility] [address] Custodial Facility 08/22/24 Manager Ed Relationship Specialty Start Date End Date Jared Evans MD [address] [place] [address] PCP - General Family Medicine 05/18/22 Manager Ed Relationship Specialty Start Date End Date Jared Evans MD [address] [place] [address] PCP - General Family Medicine 05/18/22 Team [...] October 08, 2024 End: October 08, 2024 Manager Ed Relationship Specialty Start Date End Date Jared Evans MD [address] [facility] [place] [address] PCP - General 03/06/20 Henok Lantigua PA-C [address] [address] Physician Photocopier Technician Physician Photocopier Technician 04/19/24 [facility] [address] [place] [address] Custodial Facility 08/22/24 Manager Ed Relationship Specialty Start Date End Date Jared Evans MD [address] [facility] [address] PCP - General 03/06/20 Henok Lantigua PA-C [address] [address] Physician Photocopier Technician Physician Photocopier Technician 04/19/24 [facility] [address] [place] [address] Custodial Facility 08/22/24 Manager Ed Relationship Specialty Start Date End Date Jared Evans MD [address] [facility] [place] [address] PCP - General 03/06/20 Henok Lantigua PA-C [address] [address] Physician Photocopier Technician Physician Photocopier Technician 04/19/24 [facility] [address] [place] [address] Custodial Facility 08/22/24 Manager Ed Relationship Specialty Start Date End Date Jared Evans MD [address] [place] [address] PCP - General 03/06/20 Henok Lantigua PA-C [address] [place] [address] Physician Photocopier Technician Physician Photocopier Technician 04/19/24 [facility] [address] [place] [address] Custodial Facility 08/22/24 Manager Ed Relationship Specialty Start Date End Date Jared Evans MD [address] [place] [address] PCP - General 03/06/20 Henok Lantigua PA-C [address] [address] Physician Photocopier Technician Physician Photocopier Technician 04/19/24 [facility] [address] [place] [address] Custodial Facility 08/22/24 Manager Ed Relationship Specialty Start Date End Date Megan Montoya [facility] [place] [phone] PCP - General Internal Medicine 12/13/24 Henok Lantigua PA-C [address] [address] Physician Photocopier Technician Physician Photocopier Technician 04/19/24 [facility] [address] [place] [address] Custodial Facility 08/22/24 Manager Ed Relationship Specialty Start Date End Date Megan Montoya [address] [place] [phone] PCP - General Internal Medicine 12/13/24 Henok Lantigua PA-C [address] [place] [address] Physician Photocopier Technician Physician Photocopier Technician 04/19/24 Kristyn Blankenship MD [address] [facility] [address] [place] [address] Consulting Physician Vascular Surgery 12/24/24 [facility] [address] [place] [address] Custodial Facility 08/22/24 Manager Ed Relationship Specialty Start Date End Date Jared Evans MD [address] [place] [address] PCP - General Family Medicine 05/18/22 Manager Ed Relationship Specialty Start Date End Date Jared Evans MD [address] [place] [address] PCP - General Family Medicine 05/18/22 Manager Ed Relationship Specialty Start Date End Date Megan Montoya [address] [place] [address] PCP - General Internal Medicine 12/13/24 Henok Lantigua PA-C [address] [place] [address] Physician Photocopier Technician Physician Photocopier Technician 04/19/24 Kristyn Blankenship MD [address] [place] [address] Consulting Physician Vascular Surgery 12/24/24 [facility] [address] [place], [place] [address] Custodial Facility 08/22/24 Manager Ed Relationship Specialty Start Date End Date LuanneMegan pastrana [address] [place] [phone] PCP - General Internal Medicine 12/13/24 Henok Lantigua PA-C [address] [place] [address] Physician Photocopier Technician Physician Photocopier Technician 04/19/24 Kristyn Blankenship MD [address] [place] [address] Consulting Physician Vascular Surgery 12/24/24 Andre Patel MD [address] [place] [address] Consulting Physician Hematology and Oncology 03/15/25 [facility] [address] [place] [address] Custodial Facility 08/22/24 Scheduled Active and Recently Administ [...] (COMPLETED) 7.5 mg, Oral, Once Warfarin, On Tue04/12/24 at 1700, For 1 dose 1722 (Given [...] Norma Davis RN)0625 (Rate/Dose Verify - Provider: Nroma Davis RN)0700 (Handoff - Provider: Norma Davis [...] sedation for opioid reversal - MUST notify orthopaedic surgeon provider immediately after first dose, may give [...] 0936 (Given - Provider: La Avila RN) mometasone-formoterol (Dulera 200) 200-5 MCG/ACT inhaler 2 [...] Luis Murry, RADHA)0908 (Given - Provider: Cecilia Lopes RN)1303 (Given - Provider: Cecilia Lopes RN)1627 (Given - Provider: Cecilia Lopes RN)2106 (Given - Provider: Luis Murry RN) 0000 (Given - Provider: Luis Murry RN)0349 (Given - Provider: Luis Murry RN)0936 (Given - Provider: La Avila, RADHA)1200 (Canceled [...] Provider: Aurea Castellon RN)2029 (Given - Provider: Lusi Murry RN) 0914 (Given - Provider: Cecilia Lopes, RADHA)2105 (Given - Provider: Luis Murry RN) 0936 [...] mg from all sources in 24 hours. 09 (See Alternative - Provider: Cecilia Lopes RN) [...] hours PRN, moderate pain (4-6), Starting on Amida 07/05/24 at 0540, If oral and IV [...] Tue08/03/24 at 1700 1014 (Given - Provider: pM Fallon RN)1709 (Given - Provider: Mp Fallon [...] BE BASED ON THE PRIMARY CLINICAL RECORDS. [employer] provides no warranty or guarantee of the accuracy or completeness of information in this document.
[2025-07-04 09:32] LABS: Hematocrit 34.4 % (37-47); Hemoglobin 11.1 g/dL (12.0-15.0); Mean Corp Hgb Conc 32.3 g/dL (32-36); Mean Corpuscular Volume 94.0 fL (81-99); Mean Platelet Vol. 10.5 fl (6.2-12.0); Platelet Count 202 K/mm3 (150-450); RBC Distribution Width CV 15.2 % (11.6-14.6); RBC Distribution Width SD 53.1 fl (35.1-43.9); Red Blood Count 3.66 M/mm3 (4.2-5.4); White Blood Count 4.1 K/mm3 (4.4-11.0)
[2025-07-04 09:54] LABS: Anion Gap 9 (5-15); BUN 21 mg/dL (4-19); BUN/Creat Ratio 19.7 RATIO (10-20); Calcium,Total 9.0 mg/dL (7.6-11.0); Carbon Dioxide 20.9 mmol/L (21.0-32.0); Chloride 108 mmol/L (98-108); Glucose 89 mg/dL (70-99); Potassium 5.4 mmol/L (3.3-5.1)
== END ==
LOC: OLS.SANC 05:00
PROVIDERS: Visit Provider Internal Medicine
DX: I48.91 Unspecified atrial fibrillation (principal); J44.9 Chronic obstructive pulmonary disease, unspecified; I10 Essential (primary) hypertension; Z79.01 Long term (current) use of anticoagulants
CPT/HCPCS: 36415; 80048; 85027

== ENCOUNTER → 2025-07-05 05:00 | Outpatient (REF) | payer MEDICARE, SELFPAY ==
--- OUTSIDE RECORDS SUMMARY | 2025-07-05 04:32 | XMS RPT_ITS | CCD ---
Author Organization [facility] Care Team Providers Care Neon Electrician Name Role Phone Maryuri King Primary Care Provider [phone] Jared Evans Primary Care Provider [phone] Pcp, No Primary Care Provider UnavailJared Mckinnon MD Primary Care Provider BERNIE BIRD Admitting Unavailable IWONA CHU Attending Unavailable MING OLSON Consulting Unavailable SIM ELIZABETH Attending Unavailable PRIMO DODD Referring Unavailable Jared Evans MD Primary Care Provider [phone] Jraed Evans MD Primary Care Provider Henok Hernandez PA-C Unavailable [phone] Henok Lantigua PA-C Unavailable [phone] Jared Evans MD Primary Care Provider SYSTEM, PROVIDER NOT IN Referring Unavaila Megan Rice Attending Provider Unavailab Megan Porras Referring Provider Unavailab Megan Porras Attending Provider Unavailab Megan Porras Referring Provider Unavailab TORSTEN Hernandez Consulting Unavailable JARED EVANS Primary Care Unavailable FELICIA COREAS Admitting Unavailable DON EDWARDS Attending Unavailable Megan Montoya Primary Care Provider [phone] Krzysztof BROWNE, Kristyn Unavailable RED HENDERSON Referring [...] Primary Care Unavailable SELF Referring Unavailable EVANS, KERNERSVILLE N Primary Care Unavailable SELF Referring Unavailable EVANS, KERNERSVILLE N Primary Care Unavailable MAMMO, SAVANA A [...] Facility (20 sources) Amoxicillin Drug Allergy 0 [place] (20 sources) fluticasone / salmeterol Drug Allergy 0 Intolerance [place] (20 sources) Acetaminophen / oxyCODONE; Translations: [OXYCODONE-ACETAM INOPHEN] Drug Allergy 2 Itching [facility] (9 sources) Ampicillin; Translations: [AMPICILLIN] Drug Allergy 4 Unknown [facility] (13 sources) Amoxicillin-Pot Clavulanate Drug Allergy 5 [facility] (1 source) FLUTICASONE PROPION-SALMETERO L; Translations: [FLUTICASONE PROPION-SALMETERO L] Propensity to adverse reactions to drug (disorder) 0 [facility] Repository Medications Current Medications Medication Drug [...] above: Take 1 tablet by [facility] every 8 hours as needed for pain for up to 3 days. [id number] 200 actuat albuterol 0.09 mg/actuat metered dose [...] the event of a Fluress shortage, administer Roodhouse-Fluor 1 drop into both eyes as directed for applanation tonometry, [facility] MED ORDERS Start: 07-12-2024 End: 07-12-2024 fluorescein-benoxinate 0.3-0 .4 % 1 Drop (FLURESS) bisacodyl 5 mg delayed release oral tablet (4 sources) Stimulant Laxative bisacodyl (Du lcolax) 10 MG suppository Insert into the rectum Daily as needed for constipation. Active take 1 tablet by [facility] every twenty-four hours as needed for constipation [...] Comment on above: Take 2 tablets by [facility] every 12 hours for 3 days, [...] above: Take 1 tablet by [facility] every 12 hours for 7 days. 0.5 [...] for dry skin. Active lactobacillus rhamnosus gg [id number] unt oral capsule (2 sources) Start: 06-29-20 End: 07-29-19 take 1 capsule by mouth once daily lactobacillus rhamnosus (CULTURELLE) 10 billion cell capsule Take 1 capsule by mouth once daily. 30 capsule 0 06/29/2022 07/29/2022 Active Comment on above: Take 1 capsule by [facility] once daily. lidocaine 0.04 mg/mg medicated [...] 0059, Administer for dilation PROTECT FROM LIGHT, [facility] Start: 07-16-2024 End: 07-16-2024 PHENYLephrine 2.5 % 1 Drop ( AK-DILATE, KEL-SYNEPHRINE) Start: 07-16-2024 End: 07-16-2024 1 Drop, RIGHT EYE, DIRECT ED, Starting on Tue07/16/24 at 0900, Until Tue07/16/24 at 2059, Administer for dilation PROTECT FROM LIGHT Start: 07-09-2024 End: 07-09-2024 PHENYLephrine 2.5 % 1 Drop ( AK-DILATE, KEL-SYNEPHRINE) polyethylene glycol 3350 21052 mg powder for oral solution (11 sources) [...] extremity (HCC) Take as directed by [facility]tico[facility] (90 tablets = 90 [...] extremity (HCC) Take as directed by [facility]tico[facility] (45 tablets= 30 day supply) 45 tablet 1 04/27/2024 Active Start: 04-09-2024 7.5 mg, Oral, Once Warfarin, On Maida 04/12/24 at 1700, For 1 dose Start: 04-07-2024 warfarin (Coum jay jay) 5 MG tablet Take 1 tablet (5mg) on 04/13 in the evening Take 1.5 tablets (7.5mg) on 04/14 Take 1 tablet (5mg) on 04/15 Follow up with [facility] pharmacy for further dosing 30 tablet [...] sodium chloride 0.9 % 100 mL IVPB (Add-Memphis) (2 sources) Start: End: take 3000 mg intravenously every six hours 3,000 mg, IntraVENous, at 200 mL/hr, Administer over 30 Minutes, Every 6 hours, First dose on Tue08/03/24 at 1200, For 18 doses, ADD-[place] bag, Suspected Indication (Select all that apply): [...] Anesthetic Start: 03-07-2020 End: 03-07-2020 lidocaine-EPINEPHrine 1 percent-1:[id number] injection 8 mL ergocalciferol 1.25 mg oral capsule (3 sources) Provitamin D2 Compound End: 07-05-2024 take 1 capsule by mouth every week ergocalciferol (Vitamin D2) 1.25 MG (13705 UT) capsule Take 1.25 mg by mouth [...] above: Take 1 tablet by [facility] twice daily before meals (0600/1600). 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; Translations: [senior living [...] 5 Episodic Other aftercare (1 source) Other exterminator (current) drug therapy; Translations: [Other [facility] (current) drug therapy] Onset: 5 Episodic Other [...] limited to breakdown of skin ([facility]) 12-05-2024 Unclassified (4 sources) PAD (peripheral artery disease) ([facility]) 12-05-2024 Viral infection (20 sources) Disease caused by 2019-nCoV; Translations: [COVID-19] Onset: 2 06-16-2022 Episodic Results Test Name Value Interpretation Reference Range Facility Protime w/INR Fingerstickon 05-27-2025 INR Coag (PPP) [Relative time] 2.0 {INR} Normal [facility] Comment on above: Result Comment: Crit ical Value > 4.0 Performed By: #### L 300.3900 #### [facility] [address] [place], [place], [id number] Protime Coagsen 22.2 SEC High 11.7-14.9 [facility] Comment on above: Performed By: #### L 300.3900 #### [facility] [address] [place], [address] Prothrombin Time w/INRon INR Coag (PPP) [Relative time] 2.0 {INR} Normal [facility] Comment on above: Order Comment: 104-1 Performed By: #### L 9200.0000 #### [facility] [address] [place], [address] PT Coag (PPP) [Time] 23.2 s High 11.7-14.9 [facility] Comment on above: Order Comment: 104-1 Performed By: #### L 9200.0000 #### [facility] [address] [place], [address] Protime w/INR Fingerstickon 05-09-2025 INR Coag (PPP) [Relative time] 2.4 {INR} Normal [facility] Comment on above: Result Comment: Crit ical Value > 4.0 Performed By: #### L 300.3900 #### [facility] [address] [place], [address] Protime Coagsen 25.6 SEC High 11.7-14.9 [facility] Comment on above: Performed By: #### L 300.3900 #### [facility] [address] [place], [address] Prothrombin Time w/INRon INR Coag (PPP) [Relative time] 4.8 {INR} Invalid Interpretation Code [facility] Comment on above: Order Comment: 104-1 Performed By: #### L 300.3900 #### [facility] [address] [place], [address] PT Coag (PPP) [Time] 46.2 s High 11.7-14.9 [facility] Comment on above: Order Comment: 104-1 Performed By: #### L 300.3900 #### [facility] [address] [place], [address] Protime w/INR Fingerstickon 05-06-2025 INR Coag (PPP) [Relative time] 5.5 {INR} Invalid Interpretation Code [facility] Comment on above: Result Comment: Crit ical Value > 4.0 Performed By: #### L 9200.0000 #### [facility] [address] [place], [address] Protime Coagsen 53.4 SEC High 11.7-14.9 [facility] Comment on above: Performed By: #### L 9200.0000 #### [facility] [address] [place], [address] Prothrombin Time w/INRon INR Coag (PPP) [Relative time] 3.9 {INR} Normal [facility] Comment on above: Order Comment: 104-1 Performed By: #### L 300.3900 #### [facility] [address] [place], [address] PT Coag (PPP) [Time] 39.5 s High 11.7-14.9 [facility] Comment on above: Order Comment: 104-1 Performed By: #### L 300.3900 #### [facility] [address] [place], [address] Protime w/INR Fingerstickon 04-29-2025 INR Coag (PPP) [Relative time] 4.1 {INR} Invalid Interpretation Code [facility] Comment on above: Result Comment: Crit ical Value > 4.0 Performed By: #### L 300.3900 #### [facility] [address] [place], [address] Protime Coagsen 41.7 SEC High 11.7-14.9 [facility] Comment on above: Performed By: #### L 300.3900 #### [facility] [address] [place], [address] Basic Metabolic Profile (BMP )on 04-04-2025 BUN/CRE 19.9 RATIO Normal 10-20 [facility] Comment on above: Order Comment: 104-1 Performed By: #### L 300.3900 #### [facility] [address] [place], [address] Calcium [Mass/Vol] 8.9 mg/dL Normal 7.6-11.0 [facility] Comment on above: Order Comment: 104-1 Performed By: #### L 300.3900 #### [facility] [address] [place], [address] Chloride [Moles/Vol] 109 mmol/L High 98-108 [facility] Comment on above: Order Comment: 104-1 Performed By: #### L 300.3900 #### [facility] [address] [place], [address] CO2 [Moles/Vol] 20.4 mmol/L Low 21.0-32.0 [facility] Comment on above: Order Comment: 104-1 Performed By: #### L 300.3900 #### [facility] [address] [place], [address] Creatinine [Mass/Vol] 0.98 mg/dL Normal 0.70-1.20 [facility] Comment on above: Order Comment: 104-1 Performed By: #### L 300.3900 #### [facility] [address] [place], [address] GAP 10 Normal 5-15 [facility] Comment on above: Order Comment: 104-1 Performed By: #### L 300.3900 #### [facility] [address] [place], [address] GFR/1.73 sq M.predicted among non-blacks MDRD (S/P/Bld) [Vol rate/Area] 56 mL/min/{1.73_m2} Low >60 [facility] Comment on above: Order Comment: 104-1 Result Comment: mL/m in/1.73m2 CKD-EPI Creatinine Equation (2020) Performed By: #### L 300.3900 #### [facility] [address] [place], [address] Glucose [Mass/Vol] 87 mg/dL Normal 70-99 [facility] Comment on above: Order Comment: 104-1 Performed By: #### L 300.3900 #### [facility] [address] [place], [address] Potassium [Moles/Vol] 5.0 mmol/L Normal 3.3-5.1 [facility] Comment on above: Order Comment: 104-1 Performed By: #### L 300.3900 #### [facility] [address] [place], [address] Sodium [Moles/Vol] 139 mmol/L Normal 133-145 [facility] Comment on above: Order Comment: 104-1 Performed By: #### L 300.3900 #### [facility] [address] [place], [address] Urea nitrogen [Mass/Vol] 20 mg/dL High 4-19 [facility] Comment on above: Order Comment: 104-1 Performed By: #### L 300.3900 #### [facility] [address] [place], [address] CBC-Complete Blood Cnt No Di ffon 04-04-2025 Erythrocyte distribution width (RBC) [Ratio] 13.6 % Normal 11.6-14.6 [facility] Comment on above: Order Comment: 104-1 Performed By: #### L 300.3900 #### [facility] [address] [place], [address] Hematocrit (Bld) [Volume fraction] 32.6 % Low 37-47 [facility] Comment on above: Order Comment: 104-1 Performed By: #### L 300.3900 #### [facility] [address] [place], [address] Hemoglobin (Bld) [Mass/Vol] 10.7 g/dL Low 12.0-15.0 [facility] Comment on above: Order Comment: 104-1 Performed By: #### L 300.3900 #### [facility] [address] [place], [address] MCH (RBC) [Entitic mass] 30.0 pg Normal 27.0-32.0 [facility] Comment on above: Order Comment: 104-1 Performed By: #### L 300.3900 #### [facility] [address] [place], [address] MCHC (RBC) [Mass/Vol] 32.8 g/dL Normal 32-36 [facility] Comment on above: Order Comment: 104-1 Performed By: #### L 300.3900 #### [facility] [address] [place], [address] MCV (RBC) [Entitic vol] 91.3 fL Normal 81-99 [facility] Comment on above: Order Comment: 104-1 Performed By: #### L 300.3900 #### [facility] [address] [place], [address] Platelet mean volume (Bld) [Entitic vol] 9.8 fL Normal 6.2-12.0 [facility] Comment on above: Order Comment: 104-1 Performed By: #### L 300.3900 #### [facility] [address] [place], [address] Platelets (Bld) [#/Vol] 259 10*3/uL Normal 150-450 [facility] Comment on above: Order Comment: 104-1 Performed By: #### L 300.3900 #### [facility] [address] [place], [address] RBC (Bld) [#/Vol] 3.57 10*6/uL Low 4.2-5.4 [facility] Comment on above: Order Comment: 104-1 Performed By: #### L 300.3900 #### [facility] [address] [place], [address] RDW SD 46.1 fl High 35.1-43.9 [facility] Comment on above: Order Comment: 104-1 Performed By: #### L 300.3900 #### [facility] [address] [place], [address] WBC (Bld) [#/Vol] 4.2 10*3/uL Low 4.4-11.0 [facility] Comment on above: Order Comment: 104-1 Performed By: #### L 300.3900 #### [facility] [address] [place], [address] Potassiumon 04-02-2025 Potassium [Moles/Vol] 5.3 mmol/L High 3.3-5.1 [facility] Comment on above: Order Comment: 104-1 Performed By: #### L 300.3900 #### [facility] [address] [place], [address] Basic Metabolic Profile (BMP )on 03-28-2025 BUN/CRE 17.4 RATIO Normal 10-20 [facility] Comment on above: Order Comment: 104.1 Performed By: #### L 9200.0000 #### [facility] [address] [place], [address] Calcium [Mass/Vol] 9.0 mg/dL Normal 7.6-11.0 [facility] Comment on above: Order Comment: 104.1 Performed By: #### L 9200.0000 #### [facility] [address] [place], [address] Chloride [Moles/Vol] 108 mmol/L Normal 98-108 [facility] Comment on above: Order Comment: 104.1 Performed By: #### L 9200.0000 #### [facility] [address] [place], [address] CO2 [Moles/Vol] 21.1 mmol/L Normal 21.0-32.0 [facility] Comment on above: Order Comment: 104.1 Performed By: #### L 9200.0000 #### [facility] [address] [place], [address] Creatinine [Mass/Vol] 0.99 mg/dL Normal 0.70-1.20 [facility] Comment on above: Order Comment: 104.1 Performed By: #### L 9200.0000 #### [facility] [address] [place], [address] GAP 9 Normal 5-15 [facility] Comment on above: Order Comment: 104.1 Performed By: #### L 9200.0000 #### [facility] [address] [place], [address] GFR/1.73 sq M.predicted among non-blacks MDRD (S/P/Bld) [Vol rate/Area] 56 mL/min/{1.73_m2} Low >60 [facility] Comment on above: Order Comment: 104.1 Result Comment: mL/m in/1.73m2 CKD-EPI Creatinine Equation (2020) Performed By: #### L 9200.0000 #### [facility] [address] [place], [address] Glucose [Mass/Vol] 88 mg/dL Normal 70-99 [facility] Comment on above: Order Comment: 104.1 Performed By: #### L 9200.0000 #### [facility] [address] [place], [address] Potassium [Moles/Vol] 5.2 mmol/L High 3.3-5.1 [facility] Comment on above: Order Comment: 104.1 Performed By: #### L 9200.0000 #### [facility] [address] [place], [address] Sodium [Moles/Vol] 138 mmol/L Normal 133-145 [facility] Comment on above: Order Comment: 104.1 Performed By: #### L 9200.0000 #### [facility] [address] [place], [address] Urea nitrogen [Mass/Vol] 17 mg/dL Normal 4-19 [facility] Comment on above: Order Comment: 104.1 Performed By: #### L 9200.0000 #### [facility] [address] [place], [address] CBC-Complete Blood Cnt No Di ffon 03-28-2025 Erythrocyte distribution width (RBC) [Ratio] 13.7 % Normal 11.6-14.6 [facility] Comment on above: Order Comment: 104.1 Performed By: #### L 9200.0000 #### [facility] [address] [place], [address] Hematocrit (Bld) [Volume fraction] 31.6 % Low 37-47 [facility] Comment on above: Order Comment: 104.1 Performed By: #### L 9200.0000 #### [facility] [address] [place], [address] Hemoglobin (Bld) [Mass/Vol] 10.3 g/dL Low 12.0-15.0 [facility] Comment on above: Order Comment: 104.1 Performed By: #### L 9200.0000 #### [facility] [address] [place], [address] MCH (RBC) [Entitic mass] 29.7 pg Normal 27.0-32.0 [facility] Comment on above: Order Comment: 104.1 Performed By: #### L 9200.0000 #### [facility] [address] [place], [address] MCHC (RBC) [Mass/Vol] 32.6 g/dL Normal 32-36 [facility] Comment on above: Order Comment: 104.1 Performed By: #### L 9200.0000 #### [facility] [address] [place], [address] MCV (RBC) [Entitic vol] 91.1 fL Normal 81-99 [facility] Comment on above: Order Comment: 104.1 Performed By: #### L 9200.0000 #### [facility] [address] [place], [address] Platelet mean volume (Bld) [Entitic vol] 10.0 fL Normal 6.2-12.0 [facility] Comment on above: Order Comment: 104.1 Performed By: #### L 9200.0000 #### [facility] [address] [place], [address] Platelets (Bld) [#/Vol] 265 10*3/uL Normal 150-450 [facility] Comment on above: Order Comment: 104.1 Performed By: #### L 9200.0000 #### [facility] [address] [place], [address] RBC (Bld) [#/Vol] 3.47 10*6/uL Low 4.2-5.4 [facility] Comment on above: Order Comment: 104.1 Performed By: #### L 9200.0000 #### [facility] [address] [place], [address] RDW SD 45.8 fl High 35.1-43.9 [facility] Comment on above: Order Comment: 104.1 Performed By: #### L 9200.0000 #### [facility] [address] [place], [address] WBC (Bld) [#/Vol] 5.3 10*3/uL Normal 4.4-11.0 [facility] Comment on above: Order Comment: 104.1 Performed By: #### L 9200.0000 #### [facility] [address] [place], [address] Prothrombin Time w/INRon INR Coag (PPP) [Relative time] 2.2 {INR} Normal [facility] Comment on above: Order Comment: 104.1 Performed By: #### L 9200.0000 #### [facility] [address] [place], [address] PT Coag (PPP) [Time] 24.5 s High 11.7-14.9 [facility] Comment on above: Order Comment: 104.1 Performed By: #### L 9200.0000 #### [facility] [address] [place], [address] Progress Noteon 03-15-2025 Progress Note Normal [facility] Protime w/INR Fingerstickon 03-04-2025 INR Coag (PPP) [Relative time] 2.3 {INR} Normal [facility] Comment on above: Result Comment: Crit ical Value > 4.0 Performed By: #### L 9200.0000 #### [facility] [address] [place], [address] Protime Coagsen 24.7 SEC High 11.7-14.9 [facility] Comment on above: Performed By: #### L 9200.0000 #### [facility] [address] [place], [address] 36on 02-27-2025 36 Letter mailed to patient [facility] 36on 02-26-2025 36 Normal [facility] Protime w/INR Fingerstickon 02-25-2025 INR Coag (PPP) [Relative time] 2.1 {INR} Normal [facility] Comment on above: Result Comment: Crit ical Value > 4.0 Performed By: #### L 9200.0000 #### [facility] [address] [place], [address] Protime Coagsen 23.3 SEC High 11.7-14.9 [facility] Comment on above: Performed By: #### L 9200.0000 #### [facility] [address] [place], [address] Basic Metabolic Profile (BMP )on 02-18-2025 BUN/CRE 22.7 RATIO High 10-20 [facility] Comment on above: Performed By: #### L 9200.0000 #### [facility] [address] [place], [address] Calcium [Mass/Vol] 9.2 mg/dL Normal 7.6-11.0 [facility] Comment on above: Performed By: #### L 9200.0000 #### [facility] [address] [place], [address] Chloride [Moles/Vol] 108 mmol/L Normal 98-108 [facility] Comment on above: Performed By: #### L 9200.0000 #### [facility] [address] [place], [address] CO2 [Moles/Vol] 21.6 mmol/L Normal 21.0-32.0 [facility] Comment on above: Performed By: #### L 9200.0000 #### [facility] [address] [place], [address] Creatinine [Mass/Vol] 1.03 mg/dL Normal 0.70-1.20 [facility] Comment on above: Performed By: #### L 9200.0000 #### [facility] [address] [place], [address] GAP 9 Normal 5-15 [facility] Comment on above: Performed By: #### L 9200.0000 #### [facility] [address] [place], [address] GFR/1.73 sq M.predicted among non-blacks MDRD (S/P/Bld) [Vol rate/Area] 53 mL/min/{1.73_m2} Low >60 [facility] Comment on above: Result Comment: mL/m in/1.73m2 CKD-EPI Creatinine Equation (2020) Performed By: #### L 9200.0000 #### [facility] [address] [place], [address] Glucose [Mass/Vol] 91 mg/dL Normal 70-99 [facility] Comment on above: Performed By: #### L 9200.0000 #### [facility] [address] [place], [address] Potassium [Moles/Vol] 5.2 mmol/L High 3.3-5.1 [facility] Comment on above: Performed By: #### L 9200.0000 #### [facility] [address] [place], [address] Sodium [Moles/Vol] 138 mmol/L Normal 133-145 [facility] Comment on above: Performed By: #### L 9200.0000 #### [facility] [address] [place], [address] Urea nitrogen [Mass/Vol] 23 mg/dL High 4-19 [facility] Comment on above: Performed By: #### L 9200.0000 #### [facility] [address] [place], [address] CBC-Complete Blood Cnt No Di ffon 02-18-2025 Erythrocyte distribution width (RBC) [Ratio] 14.0 % Normal 11.6-14.6 [facility] Comment on above: Performed By: #### L 9200.0000 #### [facility] [address] [place], [address] Hematocrit (Bld) [Volume fraction] 31.6 % Low 37-47 [facility] Comment on above: Performed By: #### L 9200.0000 #### [facility] [address] [place], [address] Hemoglobin (Bld) [Mass/Vol] 10.2 g/dL Low 12.0-15.0 [facility] Comment on above: Performed By: #### L 9200.0000 #### [facility] [address] [place], [address] MCH (RBC) [Entitic mass] 30.0 pg Normal 27.0-32.0 [facility] Comment on above: Performed By: #### L 9200.0000 #### [facility] [address] [place], [address] MCHC (RBC) [Mass/Vol] 32.3 g/dL Normal 32-36 [facility] Comment on above: Performed By: #### L 9200.0000 #### [facility] [address] [place], [address] MCV (RBC) [Entitic vol] 92.9 fL Normal 81-99 [facility] Comment on above: Performed By: #### L 9200.0000 #### [facility] [address] [place], [address] Platelet mean volume (Bld) [Entitic vol] 9.9 fL Normal 6.2-12.0 [facility] Comment on above: Performed By: #### L 9200.0000 #### [facility] [address] [place], [address] Platelets (Bld) [#/Vol] 257 10*3/uL Normal 150-450 [facility] Comment on above: Performed By: #### L 9200.0000 #### [facility] [address] [place], [address] RBC (Bld) [#/Vol] 3.40 10*6/uL Low 4.2-5.4 [facility] Comment on above: Performed By: #### L 9200.0000 #### [facility] [address] [place], [address] RDW SD 47.2 fl High 35.1-43.9 [facility] Comment on above: Performed By: #### L 9200.0000 #### [facility] [address] [place], [address] WBC (Bld) [#/Vol] 4.3 10*3/uL Low 4.4-11.0 [facility] Comment on above: Performed By: #### L 9200.0000 #### [facility] [address] [place], [address] Prothrombin Time w/INRon INR Coag (PPP) [Relative time] 2.5 {INR} Normal [facility] Comment on above: Performed By: #### L 9200.0000 #### [facility] [address] [place], [address] PT Coag (PPP) [Time] 27.6 s High 11.7-14.9 [facility] Comment on above: Performed By: #### L 9200.0000 #### [facility] [address] [place], [address] Basic Metabolic Profile (BMP )on 02-15-2025 BUN/CRE 18.4 RATIO Normal 10-20 [facility] Comment on above: Order Comment: 104.1 Performed By: #### L 9200.0000 #### [facility] [address] [place], [address] Calcium [Mass/Vol] 9.4 mg/dL Normal 7.6-11.0 [facility] Comment on above: Order Comment: 104.1 Performed By: #### L 9200.0000 #### [facility] [address] [place], [address] Chloride [Moles/Vol] 107 mmol/L Normal 98-108 [facility] Comment on above: Order Comment: 104.1 Performed By: #### L 9200.0000 #### [facility] [address] [place], [address] CO2 [Moles/Vol] 16.1 mmol/L Low 21.0-32.0 [facility] Comment on above: Order Comment: 104.1 Performed By: #### L 9200.0000 #### [facility] [address] [place], [address] Creatinine [Mass/Vol] 1.12 mg/dL Normal 0.70-1.20 [facility] Comment on above: Order Comment: 104.1 Performed By: #### L 9200.0000 #### [facility] [address] [place], [address] GAP 11 Normal 5-15 [facility] Comment on above: Order Comment: 104.1 Performed By: #### L 9200.0000 #### [facility] [address] [place], [address] GFR/1.73 sq M.predicted among non-blacks MDRD (S/P/Bld) [Vol rate/Area] 48 mL/min/{1.73_m2} Low >60 [facility] Comment on above: Order Comment: 104.1 Result Comment: mL/m in/1.73m2 CKD-EPI Creatinine Equation (2020) Performed By: #### L 9200.0000 #### [facility] [address] [place], [address] Glucose [Mass/Vol] 90 mg/dL Normal 70-99 [facility] Comment on above: Order Comment: 104.1 Performed By: #### L 9200.0000 #### [facility] [address] [place], [address] Potassium [Moles/Vol] 6.1 mmol/L Invalid Interpretation Code 3.3-5.1 [facility] Comment on above: Order Comment: 104.1 Result Comment: Crit ical result called 02/15/2025-09:30 by Cirilo Bird to Shannen Christianson. Hemolysis present, Results??could be affected. ?? Critical Result(s) Called at: by:??Results read back by same. Performed By: #### L 9200.0000 #### [facility] [address] [place], [address] Sodium [Moles/Vol] 134 mmol/L Normal 133-145 [facility] Comment on above: Order Comment: 104.1 Performed By: #### L 9200.0000 #### [facility] [address] [place], [address] Urea nitrogen [Mass/Vol] 21 mg/dL High 4-19 [facility] Comment on above: Order Comment: 104.1 Performed By: #### L 9200.0000 #### [facility] [address] [place], [address] CBC-Complete Blood Cnt No Di ffon 02-15-2025 Erythrocyte distribution width (RBC) [Ratio] 13.8 % Normal 11.6-14.6 [facility] Comment on above: Order Comment: 104.1 Performed By: #### L 500.2500, L100.0500 #### [facility] [address] [place], [address] Hematocrit (Bld) [Volume fraction] 34.2 % Low 37-47 [facility] Comment on above: Order Comment: 104.1 Performed By: #### L 500.2500, L100.0500 #### [facility] [address] [place], [address] Hemoglobin (Bld) [Mass/Vol] 10.8 g/dL Low 12.0-15.0 [facility] Comment on above: Order Comment: 104.1 Performed By: #### L 500.2500, L100.0500 #### [facility] [address] [place], [address] MCH (RBC) [Entitic mass] 30.4 pg Normal 27.0-32.0 [facility] Comment on above: Order Comment: 104.1 Performed By: #### L 500.2500, L100.0500 #### [facility] [address] [place], [address] MCHC (RBC) [Mass/Vol] 31.6 g/dL Low 32-36 [facility] Comment on above: Order Comment: 104.1 Performed By: #### L 500.2500, L100.0500 #### [facility] [address] [place], [address] MCV (RBC) [Entitic vol] 96.3 fL Normal 81-99 [facility] Comment on above: Order Comment: 104.1 Performed By: #### L 500.2500, L100.0500 #### [facility] [address] [place], [address] Platelet mean volume (Bld) [Entitic vol] 10.4 fL Normal 6.2-12.0 [facility] Comment on above: Order Comment: 104.1 Performed By: #### L 500.2500, L100.0500 #### [facility] [address] [place], [address] Platelets (Bld) [#/Vol] 239 10*3/uL Normal 150-450 [facility] Comment on above: Order Comment: 104.1 Performed By: #### L 500.2500, L100.0500 #### [facility] [address] [place], [address] RBC (Bld) [#/Vol] 3.55 10*6/uL Low 4.2-5.4 [facility] Comment on above: Order Comment: 104.1 Performed By: #### L 500.2500, L100.0500 #### [facility] [address] [place], [address] RDW SD 49.1 fl High 35.1-43.9 [facility] Comment on above: Order Comment: 104.1 Performed By: #### L 500.2500, L100.0500 #### [facility] [address] [place], [address] WBC (Bld) [#/Vol] 4.3 10*3/uL Low 4.4-11.0 [facility] Comment on above: Order Comment: 104.1 Performed By: #### L 500.2500, L100.0500 #### [facility] [address] [place], [address] Prothrombin Time w/INRon INR Normal [facility] Comment on above: Order Comment: 104-1 Result Comment: FING ERSTICK Performed By: #### L 9200.0000 #### [facility] [address] [place], [address] PROTIME Normal 11.7-14.9 [facility] Comment on above: Order Comment: 104-1 Result Comment: FING ERSTICK Performed By: #### L 9200.0000 #### [facility] [address] [place], [address] Protime w/INR Fingerstickon 02-11-2025 INR Coag (PPP) [Relative time] 2.5 {INR} Normal [facility] Comment on above: Result Comment: Crit ical Value > 4.0 Performed By: #### L 9200.0000 #### [facility] [address] [place], [address] Protime Coagsen 26.4 SEC High 11.7-14.9 [facility] Comment on above: Performed By: #### L 9200.0000 #### [facility] [address] [place], [address] Protime w/INR Fingerstickon 02-07-2025 INR Coag (PPP) [Relative time] 2.2 {INR} Normal [facility] Comment on above: Result Comment: Crit ical Value > 4.0 Performed By: #### L 9200.0000 #### [facility] [address] [place], [address] Protime [place]agsen 23.6 SEC High 11.7-14.9 [facility] Comment on above: Performed By: #### L 9200.0000 #### [facility] [address] [place], [address] Protime w/INR Fingerstickon 02-04-2025 INR Coag (PPP) [Relative time] 3.6 {INR} Normal [facility] Comment on above: Result Comment: Crit ical Value > 4.0 Performed By: #### L 9200.0000 #### [facility] [address] [place], [address] Protime [place]agsen 36.4 SEC High 11.7-14.9 [facility] Comment on above: Performed By: #### L 9200.0000 #### [facility] [address] [place], [address] Prothrombin Time w/INRon INR Coag (PPP) [Relative time] 3.3 {INR} Normal [facility] Comment on above: Order Comment: 104-1 Performed By: #### L 300.3900 #### [facility] [address] [place], [address] PT Coag (PPP) [Time] 34.2 s High 11.7-14.9 [facility] Comment on above: Order Comment: 104-1 Performed By: #### L 300.3900 #### [facility] [address] [place], [address] Protime w/INR Fingerstickon 01-28-2025 INR Coag (PPP) [Relative time] 2.8 {INR} Normal [facility] Comment on above: Result Comment: Crit ical Value > 4.0 Performed By: #### L 9200.0000 #### [facility] [address] [place], [address] Protime Coagsen 29.1 SEC High 11.7-14.9 [facility] Comment on above: Performed By: #### L 9200.0000 #### [facility] [address] [place], [address] Protime w/INR Fingerstickon 01-25-2025 INR Coag (PPP) [Relative time] 3.4 {INR} Normal [facility] Comment on above: Result Comment: Crit ical Value > 4.0 Performed By: #### L 9200.0000 #### [facility] [address] [place], [address] Protime Coagsen 34.5 SEC High 11.7-14.9 [facility] Comment on above: Performed By: #### L 9200.0000 #### [facility] [address] [place], [address] Prothrombin Time w/INRon INR Coag (PPP) [Relative time] 2.8 {INR} Normal [facility] Comment on above: Order Comment: 104- Performed By: #### L 300.3900 #### [facility] [address] [place], [address] PT Coag (PPP) [Time] 30.5 s High 11.7-14.9 [facility] Comment on above: Order Comment: 104-1 Performed By: #### L 300.3900 #### [facility] [address] [place], [address] Prothrombin Time w/INRon INR Coag (PPP) [Relative time] 2.5 {INR} Normal [facility] Comment on above: Order Comment: 104.1 Performed By: #### L 9200.0000 #### [facility] [address] [place], [address] PT Coag (PPP) [Time] 27.1 s High 11.7-14.9 [facility] Comment on above: Order Comment: 104.1 Performed By: #### L 9200.0000 #### [facility] [address] [place], [address] Prothrombin Time w/INRon INR Coag (PPP) [Relative time] 2.4 {INR} Normal [facility] Comment on above: Order Comment: DID F INGERSTICK TWICE, BOTH TIMES GOT A 'NO CLOT DETECTED'MESSAGE, SO VA A VENOUS SAMPLE. SPOKE WITH NURSE RIVKA Performed By: #### L 9200.0000 #### [facility] [address] [place], [address] PT Coag (PPP) [Time] 26.9 s High 11.7-14.9 [facility] Comment on above: Order Comment: DID F INGERSTICK TWICE, BOTH TIMES GOT A 'NO CLOT DETECTED'MESSAGE, SO VA A VENOUS SAMPLE. SPOKE WITH NURSE RIVKA Performed By: #### L 9200.0000 #### [facility] [address] [place], [address] Protime w/INR Fingerstickon 01-17-2025 INR Coag (PPP) [Relative time] 1.9 {INR} Normal [facility] Comment on above: Result Comment: Crit ical Value > 4.0 Performed By: #### L 9200.0000 #### [facility] [address] [place], [address] Protime Coagsen 20.8 SEC High 11.7-14.9 [facility] Comment on above: Performed By: #### L 9200.0000 #### [facility] [address] [place], [address] Protime w/INR Fingerstickon 01-16-2025 INR Coag (PPP) [Relative time] 1.5 {INR} Normal [facility] Comment on above: Result Comment: Crit ical Value > 4.0 Performed By: #### L 9200.0000 #### [facility] [address] [place], [address] Protime Coagsen 17.2 SEC High 11.7-14.9 [facility] Comment on above: Performed By: #### L 9200.0000 #### [facility] [address] [place], [address] Prothrombin Time w/INRon INR Coag (PPP) [Relative time] 1.2 {INR} Normal [facility] Comment on above: Performed By: #### L 9200.0000 #### [facility] [address] [place], [address] PT Coag (PPP) [Time] 15.4 s High 11.7-14.9 [facility] Comment on above: Performed By: #### L 9200.0000 #### [facility] [address] [place], [address] 36on 01-08-2025 36 Normal [facility] Basic Metabolic Profile (BMP )on 01-07-2025 BUN/CRE 17.7 RATIO Normal 10-20 [facility] Comment on above: Order Comment: 104.1 Performed By: #### L 9200.0000 #### [facility] [address] [place], [address] Calcium [Mass/Vol] 9.1 mg/dL Normal 7.6-11.0 [facility] Comment on above: Order Comment: 104.1 Performed By: #### L 9200.0000 #### [facility] [address] [place], [address] Chloride [Moles/Vol] 109 mmol/L High 98-108 [facility] Comment on above: Order Comment: 104.1 Performed By: #### L 9200.0000 #### [facility] [address] [place], [address] CO2 [Moles/Vol] 19.7 mmol/L Low 21.0-32.0 [facility] Comment on above: Order Comment: 104.1 Performed By: #### L 9200.0000 #### [facility] [address] [place], [address] Creatinine [Mass/Vol] 1.15 mg/dL Normal 0.70-1.20 [facility] Comment on above: Order Comment: 104.1 Performed By: #### L 9200.0000 #### [facility] [address] [place], [address] GAP 10 Normal 5-15 [facility] Comment on above: Order Comment: 104.1 Performed By: #### L 9200.0000 #### [facility] [address] [place], [address] GFR/1.73 sq M.predicted among non-blacks MDRD (S/P/Bld) [Vol rate/Area] 47 mL/min/{1.73_m2} Low >60 [facility] Comment on above: Order Comment: 104.1 Result Comment: mL/m in/1.73m2 CKD-EPI Creatinine Equation (2020) Performed By: #### L 9200.0000 #### [facility] [address] [place], [address] Glucose [Mass/Vol] 87 mg/dL Normal 70-99 [facility] Comment on above: Order Comment: 104.1 Performed By: #### L 9200.0000 #### [facility] [address] [place], [address] Potassium [Moles/Vol] 5.0 mmol/L Normal 3.3-5.1 [facility] Comment on above: Order Comment: 104.1 Performed By: #### L 9200.0000 #### [facility] [address] [place], [address] Sodium [Moles/Vol] 138 mmol/L Normal 133-145 [facility] Comment on above: Order Comment: 104.1 Performed By: #### L 9200.0000 #### [facility] [address] [place], [address] Urea nitrogen [Mass/Vol] 20 mg/dL High 4-19 [facility] Comment on above: Order Comment: 104.1 Performed By: #### L 9200.0000 #### [facility] [address] [place], [address] CBC-Complete Blood Cnt No Di ffon 01-07-2025 Erythrocyte distribution width (RBC) [Ratio] 16.5 % High 11.6-14.6 [facility] Comment on above: Order Comment: 104.1 Performed By: #### L 9200.0000 #### [facility] [address] [place], [address] Hematocrit (Bld) [Volume fraction] 30.4 % Low 37-47 [facility] Comment on above: Order Comment: 104.1 Performed By: #### L 9200.0000 #### [facility] [address] [place], [address] Hemoglobin (Bld) [Mass/Vol] 9.8 g/dL Low 12.0-15.0 [facility] Comment on above: Order Comment: 104.1 Performed By: #### L 9200.0000 #### [facility] [address] [place], [address] MCH (RBC) [Entitic mass] 29.9 pg Normal 27.0-32.0 [facility] Comment on above: Order Comment: 104.1 Performed By: #### L 9200.0000 #### [facility] [address] [place], [address] MCHC (RBC) [Mass/Vol] 32.2 g/dL Normal 32-36 [facility] Comment on above: Order Comment: 104.1 Performed By: #### L 9200.0000 #### [facility] [address] [place], [address] MCV (RBC) [Entitic vol] 92.7 fL Normal 81-99 [facility] Comment on above: Order Comment: 104.1 Performed By: #### L 9200.0000 #### [facility] [address] [place], [address] Platelet mean volume (Bld) [Entitic vol] 10.0 fL Normal 6.2-12.0 [facility] Comment on above: Order Comment: 104.1 Performed By: #### L 9200.0000 #### [facility] [address] [place], [address] Platelets (Bld) [#/Vol] 254 10*3/uL Normal 150-450 [facility] Comment on above: Order Comment: 104.1 Performed By: #### L 9200.0000 #### [facility] [address] [place], [address] RBC (Bld) [#/Vol] 3.28 10*6/uL Low 4.2-5.4 [facility] Comment on above: Order Comment: 104.1 Performed By: #### L 9200.0000 #### [facility] [address] [place], [address] RDW SD 55.9 fl High 35.1-43.9 [facility] Comment on above: Order Comment: 104.1 Performed By: #### L 9200.0000 #### [facility] [address] [place], [address] WBC (Bld) [#/Vol] 4.5 10*3/uL Normal 4.4-11.0 [facility] Comment on above: Order Comment: 104.1 Performed By: #### L 9200.0000 #### [facility] [address] [place], [address] 36on 01-04-2025 36 Normal [facility] 36 Normal [facility] Progress Noteon 12-24-2024 Progress Note Normal [facility] No Panel Informationon 12-13 Left MICHELLE 0.71 [facility] Left arm BP 121 mmHg [facility] Left Dist Outflow EDV 6.5 cm/s [facility] Left Dist Outflow PSV 51.5 cm/s [facility] Left dorsalis pedis BP 67 mmHg [facility] Left Graft 1 Proximal Popliteal Stent [facility] Left Inflow Artery EDV 8.5 cm/s [facility] Left Inflow Artery PSV 46.5 cm/s [facility] Left Mid Outflow EDV 6.5 cm/s [facility] Left Mid Outflow PSV 58.1 cm/s [facility] Left Outflow Vessel EDV 9.8 cm/s S [facility] Left Outflow Vessel PSV 89.9 cm/s S [facility] Left posterior tibial 94 mmHg [facility] Left Prox Outflow EDV 6.5 cm/s [facility] Left Prox Outflow PSV 51.5 cm/s [facility] Right MICHELLE 0.96 [facility] Right arm BP 133 mmHg [facility] Right YARITZA dist PSV 53.6 cm/s [facility] Right FA[employer] WORKER dist PSV 144.6 cm/s [facility] Right FA[employer] WORKER mid AP diameter 0.92 cm [facility] 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 diameter 0.89 cm [facility] Right FAST FOODS WORKER prox PSV 133.7 cm/s [facility] Right Dist Outflow EDV 0 cm/s [facility] Right Dist Outflow PSV 45.3 cm/s [facility] Right dorsalis pedis BP 107 mmHg S [facility] Right EIA dist PSV 144.6 cm/s [facility] Right Graft 1 Distal SFA Stent [facility] Right Inflow Artery EDV 4.6 cm/s S [facility] Right Inflow Artery PSV 100.7 cm/s S [facility] Right Mid Outflow EDV 2.3 cm/s [...] popliteal artery mid TR diameter 0.6 cm [facility] Right posterior tibial 128 mmHg [facility] Right Prox Outflow EDV 0 cm/s [facility] Right Prox Outflow PSV 68.6 cm/s [facility] 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 IMAGING Nursing Noteon 11-22-2024 Nursing Note Patient arrived on unit. Name and date verified. Attached to monitors. Vital signs stable. Normal [facility] Op Noteon 11-22-2024 Op Note Normal [facility] Progress Noteon 11-22-2024 Progress Note POA called to bedsid e and discharge instructions reviewed. Groin site remains intact and LE distal pulses unchanged via assessment with doppler. 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 Made aware of patient's orders to lay flat until 1325. Daughter in law stated that she will call care facility later to make arrangements for transportation back. Normal [facility] Anesthesia Noteon 11-21-2024 Anesthesia Note Normal [facility] Basic Metabolic Profile (BMP )on 11-15-2024 BUN/CRE 18.3 RATIO Normal - [facility] Comment on above: Order Comment: 104-1 Performed By: #### L 9200.0000 #### [facility] [facility] [place], [address] Calcium [Mass/Vol] 9.0 mg/dL Normal 7.6-11.0 [facility] Comment on above: Order Comment: 104-1 Performed By: #### L 9200.0000 #### [facility] [address] [place], [address] Chloride [Moles/Vol] 108 mmol/L Normal 98-108 [facility] Comment on above: Order Comment: 104-1 Performed By: #### L 9200.0000 #### [facility] [address] [place], [address] CO2 [Moles/Vol] 22.1 mmol/L Normal 21.0-32.0 [facility] Comment on above: Order Comment: 104-1 Performed By: #### L 9200.0000 #### [facility] [address] [place], [address] Creatinine [Mass/Vol] 1.03 mg/dL Normal 0.70-1.20 [facility] Comment on above: Order Comment: 104-1 Performed By: #### L 9200.0000 #### [facility] [address] [place], [address] GAP 9 Normal 5-15 [facility] Comment on above: Order Comment: 104-1 Performed By: #### L 9200.0000 #### [facility] [address] [place], [address] GFR/1.73 sq M.predicted among non-blacks MDRD (S/P/Bld) [Vol rate/Area] 53 mL/min/{1.73_m2} Low >60 [facility] Comment on above: Order Comment: 104-1 Result Comment: mL/m in/1.73m2 CKD-EPI Creatinine Equation (2020) Performed By: #### L 9200.0000 #### [facility] [address] [place], [address] Glucose [Mass/Vol] 91 mg/dL Normal 70-99 [facility] Comment on above: Order Comment: 104-1 Performed By: #### L 9200.0000 #### [facility] [address] [place], [address] Potassium [Moles/Vol] 4.8 mmol/L Normal 3.3-5.1 [facility] Comment on above: Order Comment: 104-1 Performed By: #### L 9200.0000 #### [facility] [address] [place], [address] Sodium [Moles/Vol] 138 mmol/L Normal 133-145 [facility] Comment on above: Order Comment: 104-1 Performed By: #### L 9200.0000 #### [facility] [address] [place], [address] Urea nitrogen [Mass/Vol] 19 mg/dL Normal 4-19 [facility] Comment on above: Order Comment: 104-1 Performed By: #### L 9200.0000 #### [facility] [address] [place], [address] CBC W/Diff, Automatedon 05-0 1-5 Absolute Lymph 1.77 X10 3/uL Normal 0.83-4.51 [facility] Comment on above: Order Comment: 104-1 Performed By: #### L 9200.0000 #### [facility] [address] [place], [address] Absolute Neut 3.2 X10 3/uL Normal 2.0-7.7 [facility] Comment on above: Order Comment: 104-1 Performed By: #### L 9200.0000 #### [facility] [address] [place], [address] Basophils/100 WBC (Bld) 0.7 % Normal 0-1 [facility] Comment on above: Order Comment: 104-1 Performed By: #### L 9200.0000 #### [facility] [address] [place], [address] Eosinophils/100 WBC (Bld) 2.9 % Normal 0-5 [facility] Comment on above: Order Comment: 104-1 Performed By: #### L 9200.0000 #### [facility] [address] [place], [address] Erythrocyte distribution width (RBC) [Ratio] 18.8 % High 11.6-14.6 [facility] Comment on above: Order Comment: 104-1 Performed By: #### L 9200.0000 #### [facility] [address] [place], [address] Hematocrit (Bld) [Volume fraction] 30.9 % Low 37-47 [facility] Comment on above: Order Comment: 104-1 Performed By: #### L 9200.0000 #### [facility] [address] [place], [address] Hemoglobin (Bld) [Mass/Vol] 9.8 g/dL Low 12.0-15.0 [facility] Comment on above: Order Comment: 104-1 Performed By: #### L 9200.0000 #### [facility] [address] [place], [address] IG% 0.200 Normal 0.0-0.9 [facility] Comment on above: Order Comment: 104-1 Result Comment: IG% - Immature Granulocytes (promyelocytes, myelocytes and metamyelocytes) > 1% indicates that a LEFT SHIFT is Present. Performed By: #### L 9200.0000 #### [facility] [address] [place], [address] Lymphocytes/100 WBC (Bld) 30.3 % Normal 19-41 [facility] Comment on above: Order Comment: 104-1 Performed By: #### L 9200.0000 #### [facility] [address] [place], [address] MCH (RBC) [Entitic mass] 28.4 pg Normal 27.0-32.0 [facility] Comment on above: Order Comment: 104-1 Performed By: #### L 9200.0000 #### [facility] [address] [place], [address] MCHC (RBC) [Mass/Vol] 31.7 g/dL Low 32-36 [facility] Comment on above: Order Comment: 104-1 Performed By: #### L 9200.0000 #### [facility] [address] [place], [address] MCV (RBC) [Entitic vol] 89.6 fL Normal 81-99 [facility] Comment on above: Order Comment: 104-1 Performed By: #### L 9200.0000 #### [facility] [address] [place], [address] Monocytes/100 WBC (Bld) 11.3 % High 0-10 [facility] Comment on above: Order Comment: 104-1 Performed By: #### L 9200.0000 #### [facility] [address] [place], [address] Neutrophils/100 WBC (Bld) 54.6 % Normal 47-70 [facility] Comment on above: Order Comment: 104-1 Performed By: #### L 9200.0000 #### [facility] [address] [place], [address] Nucleated RBC (Bld) [#/Vol] 0 10*3/uL Normal 0-5 [facility] Comment on above: Order Comment: 104-1 Performed By: #### L 9200.0000 #### [facility] [address] [place], [address] Platelet mean volume (Bld) [Entitic vol] 10.2 fL Normal 6.2-12.0 [facility] Comment on above: Order Comment: 104-1 Performed By: #### L 9200.0000 #### [facility] [address] [place], [address] Platelets (Bld) [#/Vol] 303 10*3/uL Normal 150-450 [facility] Comment on above: Order Comment: 104-1 Performed By: #### L 9200.0000 #### [facility] [address] [place], [address] RBC (Bld) [#/Vol] 3.45 10*6/uL Low 4.2-5.4 [facility] Comment on above: Order Comment: 104-1 Performed By: #### L 9200.0000 #### [facility] [address] [place], [address] RDW SD 61.8 fl High 35.1-43.9 [facility] Comment on above: Order Comment: 104-1 Performed By: #### L 9200.0000 #### [facility] [address] [place], [address] WBC (Bld) [#/Vol] 5.8 10*3/uL Normal 4.4-11.0 [facility] Comment on above: Order Comment: 104-1 Performed By: #### L 9200.0000 #### [facility] [address] [place], [address] 36on 11-14-2024 36 Normal [facility] 36on 11-08-2024 36 Fidel called to state that she spoke with Mel and she would like to proceed with angio. Normal [facility] Progress Noteon 11-05-2024 Progress Note Normal [facility] Anion gap in Serum or Plasma Ordered By: Megan Montoya on 10-08-2024 Anion gap [Moles/Vol] 12 mmol/L 5-15 [facility] BUN/creatinine ratioOrdered By: Megan Montoya on 10-08-2024 Urea nitrogen/Creatinine [Mass ratio] 16.5 mg/mg 10-20 [facility] Basic Metabolic Profile (BMP )on 10-08-2024 BUN/CRE 16.5 RATIO Normal - [facility] Comment on above: Order Comment: 104.1 Performed By: #### L 500.2500, L100.0500 #### [facility] [address] [place], [address] Calcium [Mass/Vol] 9.0 mg/dL Normal 7.6-11.0 [facility] Comment on above: Order Comment: 104.1 Performed By: #### L 500.2500, L100.0500 #### [facility] [address] [place], [address] Chloride [Moles/Vol] 106 mmol/L Normal 98-108 [facility] Comment on above: Order Comment: 104.1 Performed By: #### L 500.2500, L100.0500 #### [facility] [address] [place], [address] CO2 [Moles/Vol] 20.0 mmol/L Low 21.0-32.0 [facility] Comment on above: Order Comment: 104.1 Performed By: #### L 500.2500, L100.0500 #### [facility] [address] [place], [address] Creatinine [Mass/Vol] 1.05 mg/dL Normal 0.70-1.20 [facility] Comment on above: Order Comment: 104.1 Performed By: #### L 500.2500, L100.0500 #### [facility] [address] [place], [address] GAP 12 Normal 5-15 [facility] Comment on above: Order Comment: 104.1 Performed By: #### L 500.2500, L100.0500 #### [facility] [address] [place], [address] GFR/1.73 sq M.predicted among non-blacks MDRD (S/P/Bld) [Vol rate/Area] 52 mL/min/{1.73_m2} Low >60 [facility] Comment on above: Order Comment: 104.1 Result Comment: mL/m in/1.73m2 CKD-EPI Creatinine Equation (2020) Performed By: #### L 500.2500, L100.0500 #### [facility] [address] [place], [address] Glucose [Mass/Vol] 98 mg/dL Normal 70-99 [facility] Comment on above: Order Comment: 104.1 Performed By: #### L 500.2500, L100.0500 #### [facility] [address] [place], [address] Potassium [Moles/Vol] 4.3 mmol/L Normal 3.3-5.1 [facility] Comment on above: Order Comment: 104.1 Result Comment: Hemo lysis present, Results??could be affected. ?? Performed By: #### L 500.2500, L100.0500 #### [facility] [address] [place], [address] Sodium [Moles/Vol] 137 mmol/L Normal 133-145 [facility] Comment on above: Order Comment: 104.1 Performed By: #### L 500.2500, L100.0500 #### [facility] [address] [place], [address] Urea nitrogen [Mass/Vol] 17 mg/dL Normal 4-19 [facility] Comment on above: Order Comment: 104.1 Performed By: #### L 500.2500, L100.0500 #### [facility] [address] [place], [address] CBC-Complete Blood Cnt No Di ffon 10-08-2024 Erythrocyte distribution width (RBC) [Ratio] 17.5 % High 11.6-14.6 [facility] Comment on above: Order Comment: 104.1 Performed By: #### L 500.2500, L100.0500 #### [facility] [address] [place], [address] Hematocrit (Bld) [Volume fraction] 30.4 % Low 37-47 [facility] Comment on above: Order Comment: 104.1 Performed By: #### L 500.2500, L100.0500 #### [facility] [address] [place], [address] Hemoglobin (Bld) [Mass/Vol] 9.6 g/dL Low 12.0-15.0 [facility] Comment on above: Order Comment: 104.1 Performed By: #### L 500.2500, L100.0500 #### [facility] [address] [place], [address] MCH (RBC) [Entitic mass] 27.4 pg Normal 27.0-32.0 [facility] Comment on above: Order Comment: 104.1 Performed By: #### L 500.2500, L100.0500 #### [facility] [address] [place], [address] MCHC (RBC) [Mass/Vol] 31.6 g/dL Low 32-36 [facility] Comment on above: Order Comment: 104.1 Performed By: #### L 500.2500, L100.0500 #### [facility] [address] [place], [address] MCV (RBC) [Entitic vol] 86.9 fL Normal 81-99 [facility] Comment on above: Order Comment: 104.1 Performed By: #### L 500.2500, L100.0500 #### [facility] [address] [place], [address] Platelet mean volume (Bld) [Entitic vol] 10.3 fL Normal 6.2-12.0 [facility] Comment on above: Order Comment: 104.1 Performed By: #### L 500.2500, L100.0500 #### [facility] [address] [place], [address] Platelets (Bld) [#/Vol] 408 10*3/uL Normal 150-450 [facility] Comment on above: Order Comment: 104.1 Performed By: #### L 500.2500, L100.0500 #### [facility] [address] [place], [address] RBC (Bld) [#/Vol] 3.50 10*6/uL Low 4.2-5.4 [facility] Comment on above: Order Comment: 104.1 Performed By: #### L 500.2500, L100.0500 #### [facility] [address] [place], [address] RDW SD 56.2 fl High 35.1-43.9 [facility] Comment on above: Order Comment: 104.1 Performed By: #### L 500.2500, L100.0500 #### [facility] [address] [place], [address] WBC (Bld) [#/Vol] 6.4 10*3/uL Normal 4.4-11.0 [facility] Comment on above: Order Comment: 104.1 Performed By: #### L 500.2500, L100.0500 #### [facility] [address] [place], [address] Carbon dioxide, total [Moles /volume] in Central venous bloodOrdered By: Megan Montoya on 10-08-2024 CO2 [Moles/Vol] 20.0 mmol/L Low 21.0-32.0 [facility] Chloride assayOrdered By: Johnathan Guzman on 10-08-2024 Chloride [Moles/Vol] 106 mmol/L 98-108 [facility] Erythrocyte distribution wid th ratioOrdered By: Megan Montoya on 10-08-2024 Erythrocyte distribution width (RBC) [Ratio] 17.5 % High 11.6-14.6 [facility] Erythrocyte distribution wid th standard deviationOrdered By: Megan Montoya on 10-08-2024 Erythrocyte distribution width (RBC) [Entitic vol] 56.2 fL High 35.1-43.9 [facility] GFR/1.73 sq M.predicted gricelda g non-blacks MDRD (S/P/Bld) [Vol rate/Area]Ordered By: Megan Montoya on 10-08-2024 Estimated GFR (MDRD) Non-Af Amer 52 Low >60 [facility] Comment on above: mL/min/1.73m2 CKD-EP I Creatinine Equation (2020) Hematocrit Auto (Bld) [Volum e fraction]Ordered By: Megan Montoya on 10-08-2024 Hematocrit (Bld) [Volume fraction] 30.4 % Low 37-47 [facility] Hemoglobin measurementOrdere d By: Megan Montoya on 10-08-2024 Hemoglobin (Bld) [Mass/Vol] 9.6 g/dL Low 12.0-15.0 [facility] MCV (mean corpuscular volume ) determinationOrdered By: Megan Montoya on 10-08-2024 MCV (RBC) [Entitic vol] 86.9 fL 81-99 [facility] Mean corpuscular hemoglobin (MCH) determinationOrdered By: Megan Montoya on 10-08-2024 MCH (RBC) [Entitic mass] 27.4 pg 27.0-32.0 [facility] Mean corpuscular hemoglobin concentration (MCHC) determinationOrdered By: Megan Montoya on 10-08-2024 MCHC (RBC) [Mass/Vol] 31.6 g/dL Low 32-36 [facility] Mean platelet volume determi nationOrdered By: Megan Montoya on 10-08-2024 Platelet mean volume (Bld) [Entitic vol] 10.3 fL 6.2-12.0 [facility] Platelet countOrdered By: Johnathan Guzman on 10-08-2024 Platelets (Bld) [#/Vol] 408 10*3/uL 150-450 [facility] Potassium (Unsp spec) [Mass/ Vol]Ordered By: Megan Montoya on 10-08-2024 Potassium [Moles/Vol] 4.3 mmol/L 3.3-5.1 [facility] Comment on above: Hemolysis present, R esults could be affected. RBC Auto (Bld) [#/Vol]Ordere d By: Megan Montoya on 10-08-2024 RBC (Bld) [#/Vol] 3.50 10*6/uL Low 4.2-5.4 [facility] Serum creatinine measurement (mass/volume)Ordered By: Megan Montoya on 10-08-2024 Creatinine [Mass/Vol] 1.05 mg/dL 0.70-1.20 [facility] Serum glucose measurement (m ass/volume)Ordered By: Megan Montoya on 10-08-2024 Glucose [Mass/Vol] 98 mg/dL 70-99 [facility] Serum or plasma calcium reyna urement (mass/volume)Ordered By: Megan Montoya on 10-08-2024 Calcium [Mass/Vol] 9.0 mg/dL 7.6-11.0 [facility] Serum or plasma urea nitroge n measurement (mass/volume)Ordered By: Megan Montoya on 10-08-2024 Urea nitrogen [Mass/Vol] 17 mg/dL 4-19 [facility] Sodium levelOrdered By: Juan C Montoya on 10-08-2024 Sodium [Moles/Vol] 137 mmol/L 133-145 [facility] White blood cell (WBC) count Ordered By: Megan Montoya on 10-08-2024 WBC (Bld) [#/Vol] 6.4 10*3/uL 4.4-11.0 [facility] BSCAN OD (RIGHT EYE)on 10-01 [facility] Radiology Study observation (narrative) [facility] BUN/creatinine ratioOrdered By: Megan Montoya on 09-17-2024 Urea nitrogen/Creatinine [Mass ratio] 15.7 mg/mg 10-20 [facility] Basic Metabolic Profile (BMP )on 09-17-2024 Anion gap [Moles/Vol] 10 mmol/L Normal 5-15 [facility] Comment on above: Order Comment: 104-1 Performed By: #### L 300.6070 #### [facility] [address] [place], [address] BUN/CRE 15.7 RATIO Normal 10-20 [facility] Comment on above: Order Comment: 104-1 Performed By: #### L 300.3900 #### [facility] [address] [place], [address] Calcium [Mass/Vol] 9.0 mg/dL Normal 7.6-11.0 [facility] Comment on above: Order Comment: 104-1 Performed By: #### L 300.3900 #### [facility] [address] [place], [address] Chloride [Moles/Vol] 108 mmol/L Normal 96-108 [facility] Comment on above: Order Comment: 104-1 Performed By: #### L 300.3900 #### [facility] [address] [place], [address] CO2 [Moles/Vol] 21.6 mmol/L Low 22.0-29.0 [facility] Comment on above: Order Comment: 104-1 Performed By: #### L 300.3900 #### [facility] [address] [place], [address] Creatinine [Mass/Vol] 1.03 mg/dL Normal 0.70-1.20 [facility] Comment on above: Order Comment: 104-1 Performed By: #### L 300.3900 #### [facility] [address] [place], [address] GFR/1.73 sq M.predicted among non-blacks MDRD (S/P/Bld) [Vol rate/Area] 54 mL/min/{1.73_m2} Low >60 [facility] Comment on above: Order Comment: 104-1 Result Comment: mL/m in/1.73m2 CKD-EPI Creatinine Equation (2020) Performed By: #### L 300.3900 #### [facility] [address] [place], [address] Glucose [Mass/Vol] 90 mg/dL Normal 70-99 [facility] Comment on above: Order Comment: 104-1 Performed By: #### L 300.3900 #### [facility] [address] [place], [address] Potassium [Moles/Vol] 4.5 mmol/L Normal 3.3-5.1 [facility] Comment on above: Order Comment: 104-1 Performed By: #### L 300.3900 #### [facility] [address] [place], [address] Sodium [Moles/Vol] 140 mmol/L Normal 133-145 [facility] Comment on above: Order Comment: 104-1 Performed By: #### L 300.3900 #### [facility] [address] [place], [address] Urea nitrogen [Mass/Vol] 16 mg/dL Normal 4-19 [facility] Comment on above: Order Comment: 104-1 Performed By: #### L 300.3900 #### [facility] [address] [place], [address] Carbon dioxide measurementOr dered By: Megan Montoya on 09-17-2024 CO2 [Moles/Vol] 21.6 mmol/L Low 22.0-29.0 [facility] Chloride measurementOrdered By: Megan Montoya on 09-17-2024 Chloride [Moles/Vol] 108 mmol/L 96-108 [facility] GFR/1.73 sq M.predicted gricelda g non-blacks MDRD (S/P/Bld) [Vol rate/Area]Ordered By: Megan Montoya on 09-17-2024 Estimated GFR (MDRD) Non-Af Amer 54 Low >60 [facility] Comment on above: mL/min/1.73m2 CKD-EP I Creatinine Equation (2020) Serum creatinine measurement (mass/volume)Ordered By: Megan Montoya on 09-17-2024 Creatinine [Mass/Vol] 1.03 mg/dL 0.70-1.20 [facility] Serum glucose measurement (m ass/volume)Ordered By: Megan Montoya on 09-17-2024 Glucose [Mass/Vol] 90 mg/dL 70-99 [facility] Serum or plasma anion gap de termination (moles/volume)Ordered By: Megan Montoya on 09-17-2024 Anion gap [Moles/Vol] 10 mmol/L 5-15 [facility] Serum or plasma calcium reyna urement (mass/volume)Ordered By: Megan Montoya on 09-17-2024 Calcium [Mass/Vol] 9.0 mg/dL 7.6-11.0 [facility] Serum or plasma potassium me asurementOrdered By: Megan Montoya on 09-17-2024 Potassium [Moles/Vol] 4.5 mmol/L 3.3-5.1 [facility] Serum or plasma sodium measu rement (moles/volume)Ordered By: Megan Montoya on 09-17-2024 Sodium [Moles/Vol] 140 mmol/L 133-145 [facility] Serum or plasma urea nitroge n measurement (mass/volume)Ordered By: Megan Montoya on 09-17-2024 Urea nitrogen [Mass/Vol] 16 mg/dL 4-19 [facility] Basic Metabolic Profile (BMP )on 09-10-2024 BUN/CRE 17.9 RATIO Normal 10-20 [facility] Comment on above: Order Comment: 104.1 Performed By: #### L 9200.0000 #### [facility] [address] [place], [place], [id number] CA,Total 9.0 mg/dL Normal 8.5-10.1 [facility] Comment on above: Order Comment: 104.1 Performed By: #### L 9200.0000 #### [facility] [address] [place], [place], [address] Chloride [Moles/Vol] 108 mmol/L High 98-107 [facility] Comment on above: Order Comment: 104.1 Performed By: #### L 9200.0000 #### [facility] [address] [place], [address] CO2 [Moles/Vol] 24.0 mmol/L Normal 21.0-32.0 [facility] Comment on above: Order Comment: 104.1 Performed By: #### L 9200.0000 #### [facility] [address] [place], [address] Creatinine [Mass/Vol] 1.23 mg/dL High 0.55-1.02 [facility] Comment on above: Order Comment: 104.1 Result Comment: The validity of the calculated GFR GFRAA in patients over 70 years has not been determined. Clinical correlation is essential. Performed By: #### L 9200.0000 #### [facility] [address] [place], [address] EST GFR - AA 53 mL/min Low >60 [facility] Comment on above: Order Comment: 104.1 Result Comment: Afri can Japanese GFR Calc Performed By: #### L 9200.0000 #### [facility] [address] [place], [address] GAP 5 Normal 5-15 [facility] Comment on above: Order Comment: 104.1 Performed By: #### L 9200.0000 #### [facility] [address] [place], [address] GFR/1.73 sq M.predicted among non-blacks MDRD (S/P/Bld) [Vol rate/Area] 44 mL/min/{1.73_m2} Low >60 [facility] Comment on above: Order Comment: 104.1 Result Comment: Non- GFR Calc Performed By: #### L 9200.0000 #### [facility] [address] [place], [address] Glucose [Mass/Vol] 98 mg/dL Normal 74-106 [facility] Comment on above: Order Comment: 104.1 Performed By: #### L 9200.0000 #### [facility] [address] [place], [address] Potassium [Moles/Vol] 4.5 mmol/L Normal 3.5-5.1 [facility] Comment on above: Order Comment: 104.1 Performed By: #### L 9200.0000 #### [facility] [address] [place], [address] Sodium [Moles/Vol] 137 mmol/L Normal 136-145 [facility] Comment on above: Order Comment: 104.1 Performed By: #### L 9200.0000 #### [facility] [address] [place], [address] Urea nitrogen [Mass/Vol] 22 mg/dL High 7-18 [facility] Comment on above: Order Comment: 104.1 Performed By: #### L 9200.0000 #### [facility] [address] [place], [address] Blood urea nitrogen (BUN)/cr eatinine ratioOrdered By: Megan Montoya on 09-10-2024 Urea nitrogen/Creatinine [Mass ratio] 17.9 mg/mg 10-20 [facility] CBC-Complete Blood Cnt No Di ffon 09-10-2024 Erythrocyte distribution width (RBC) [Ratio] 17.8 % High 11.6-14.6 [facility] Comment on above: Order Comment: 104.1 Performed By: #### L [id number] #### [facility] [address] [place], [address] Hematocrit (Bld) [Volume fraction] 31.9 % Low 37-47 [facility] Comment on above: Order Comment: 104.1 Performed By: #### L [id number] #### [facility] [address] [place], [address] Hemoglobin (Bld) [Mass/Vol] 9.7 g/dL Low 12.0-15.0 [facility] Comment on above: Order Comment: 104.1 Performed By: #### L 9200.0000 #### [facility] [address] [place], [address] MCH (RBC) [Entitic mass] 26.1 pg Low 27.0-32.0 [facility] Comment on above: Order Comment: 104.1 Performed By: #### L [id number] #### [facility] [address] [place], [address] MCHC (RBC) [Mass/Vol] 30.4 g/dL Low 32-36 [facility] Comment on above: Order Comment: 104.1 Performed By: #### L 9200.0000 #### [facility] [address] [place], [address] MCV (RBC) [Entitic vol] 85.8 fL Normal 81-99 [facility] Comment on above: Order Comment: 104.1 Performed By: #### L [id number] #### [facility] [address] [place], [address] Platelet mean volume (Bld) [Entitic vol] 9.5 fL Normal 6.2-12.0 [facility] Comment on above: Order Comment: 104.1 Performed By: #### L [id number] #### [facility] [address] [place], [address] Platelets (Bld) [#/Vol] 485 10*3/uL High 150-450 [facility] Comment on above: Order Comment: 104.1 Performed By: #### L [id number] #### [facility] [address] [place], [address] RBC (Bld) [#/Vol] 3.72 10*6/uL Low 4.2-5.4 [facility] Comment on above: Order Comment: 104.1 Performed By: #### L [id number] #### [facility] [address] [place], [place], [id number] RDW SD 55.2 fl High 35.1-43.9 [facility] Comment on above: Order Comment: 104.1 Performed By: #### L [id number] #### [facility] [address] [place], [place], [address] WBC (Bld) [#/Vol] 7.7 10*3/uL Normal 4.4-11.0 [facility] Comment on above: Order Comment: 104.1 Performed By: #### L [id number] #### [facility] [address] [place], [place], [address] Carbon dioxide measurementOr dered By: Megan Montoya on 09-10-2024 CO2 [Moles/Vol] 24.0 mmol/L 21.0-32.0 [facility] Chloride measurementOrdered By: Megan Montoya on 09-10-2024 Chloride [Moles/Vol] 108 mmol/L High 98-107 [facility] Erythrocyte distribution wid th ratioOrdered By: Megan Montoya on 09-10-2024 Erythrocyte distribution width (RBC) [Ratio] 17.8 % High 11.6-14.6 [facility] Erythrocyte distribution wid th standard deviationOrdered By: Megan Montoya on 09-10-2024 Erythrocyte distribution width (RBC) [Entitic vol] 55.2 fL High 35.1-43.9 [facility] Estimated glomerular filtrat ion rate (GFR) AmericanOrdered By: Megan Montoya on 09-10-2024 Estimated GFR (MDRD) Amer 53 mL/min Low >60 [facility] Comment on above: GFR Calc Glomerular filtration rate ( GFR) estimationOrdered By: Megan Montoya on 09-10-2024 Estimated GFR (MDRD) Non-Af Amer 44 mL/min Low >60 [facility] Comment on above: Non- GFR Calc Glucose measurementOrdered B y: Megan Montoya on 09-10-2024 Glucose [Mass/Vol] 98 mg/dL 74-106 [facility] Hematocrit Auto (Bld) [Volum e fraction]Ordered By: Megan Montoya on 09-10-2024 Hematocrit (Bld) [Volume fraction] 31.9 % Low 37-47 [facility] Hemoglobin measurementOrdere d By: Megan Montoya on 09-10-2024 Hemoglobin (Bld) [Mass/Vol] 9.7 g/dL Low 12.0-15.0 [facility] MCV (mean corpuscular volume ) determinationOrdered By: Megan Montoya on 09-10-2024 MCV (RBC) [Entitic vol] 85.8 fL 81-99 [facility] Mean corpuscular hemoglobin (MCH) determinationOrdered By: Megan Montoya on 09-10-2024 MCH (RBC) [Entitic mass] 26.1 pg Low 27.0-32.0 [facility] Mean corpuscular hemoglobin concentration (MCHC) determinationOrdered By: Megan Montoya on 09-10-2024 MCHC (RBC) [Mass/Vol] 30.4 g/dL Low 32-36 [facility] Mean platelet volume determi nationOrdered By: Megan Montoya on 09-10-2024 Platelet mean volume (Bld) [Entitic vol] 9.5 fL 6.2-12.0 [facility] Platelet countOrdered By: Johnathan Guzman on 09-10-2024 Platelets (Bld) [#/Vol] 485 10*3/uL High 150-450 [facility] Potassium measurementOrdered By: Megan Montoya on 09-10-2024 Potassium [Moles/Vol] 4.5 mmol/L 3.5-5.1 [facility] RBC Auto (Bld) [#/Vol]Ordere d By: Megan Montoya on 09-10-2024 RBC (Bld) [#/Vol] 3.72 10*6/uL Low 4.2-5.4 [facility] Serum anion gap measurementO rdered By: Megan Montoya on 09-10-2024 Anion gap [Moles/Vol] 5 mmol/L 5-15 [facility] Serum or plasma calcium reyna urement (mass/volume)Ordered By: Megan Montoya on 09-10-2024 Calcium [Mass/Vol] 9.0 mg/dL 8.5-10.1 [facility] Serum or plasma creatinine m easurement (mass/volume)Ordered By: Megan Montoya on 09-10-2024 Creatinine [Mass/Vol] 1.23 mg/dL High 0.55-1.02 [facility] Comment on above: The validity of the calculated GFR & GFRAA in patients over 70 years has not been determined. Clinical correlation is essential. Serum or plasma urea nitroge n measurement (mass/volume)Ordered By: Megan Montoya on 09-10-2024 Urea nitrogen [Mass/Vol] 22 mg/dL High 7-18 [facility] Sodium levelOrdered By: Juan C Montoya on 09-10-2024 Sodium [Moles/Vol] 137 mmol/L 136-145 [facility] White blood cell (WBC) count Ordered By: Megan Montoya on 09-10-2024 WBC (Bld) [#/Vol] 7.7 10*3/uL 4.4-11.0 [facility] Urine Cultureon 09-06-2024 URC UNKNOWN METHOD OF COLLECTION Proteus mirabilis [place] Count 50,000-80,000 Klebsiella pneumoniae sp pneum Klebsiella [...] SMX Islt AGATA <=20 S Normal [facility] Comment on above: Performed By: #### L [id number] #### [facility] [address] [place], [address] Urinalysis, Completeon 09-04 BACTERIA 4+ /hpf Normal None Seen [facility] Comment on above: Order Comment: UNKNO WN METHOD OF COLLECTIONCLEAN CATCH Performed By: #### L [id number] #### [facility] [address] [place], [address] EPI,SQUAMOUS 10-25 SEEN Normal 5-10 [facility] Comment on above: Order Comment: UNKNO WN METHOD OF COLLECTIONCLEAN CATCH Performed By: #### L [id number] #### [facility] [address] [place], [address] Mucus Ql (Urine sed) 1+ /hpf Normal [facility] Comment on above: Order Comment: UNKNO WN METHOD OF COLLECTIONCLEAN CATCH Performed By: #### L [id number] #### [facility] [address] [place], [address] RBC 5-10 SEEN Normal 0-5 [facility] Comment on above: Order Comment: UNKNO WN METHOD OF COLLECTIONCLEAN CATCH Performed By: #### L [id number] #### [facility] [address] [place], [address] WBC 50-100 SEEN Normal 0-5 [facility] Comment on above: Order Comment: UNKNO WN METHOD OF COLLECTIONCLEAN CATCH Performed By: #### L [id number] #### [facility] [address] [place], [address] Basic Metabolic Profile (BMP )on 09-03-2024 BUN/CRE 20.7 RATIO High 10-20 [facility] Comment on above: Order Comment: 104-1 Performed By: #### L [id number] #### [facility] [address] [place], [address] CA,Total 9.4 mg/dL Normal 8.5-10.1 [facility] Comment on above: Order Comment: 104-1 Performed By: #### L [id number] #### [facility] [address] [place], [address] Chloride [Moles/Vol] 109 mmol/L High 98-107 [facility] Comment on above: Order Comment: 104-1 Performed By: #### L [id number] #### [facility] [address] [place], [address] CO2 [Moles/Vol] 21.0 mmol/L Normal 21.0-32.0 [facility] Comment on above: Order Comment: 104-1 Performed By: #### L 9200.0000 #### [facility] [address] [place], [address] Creatinine [Mass/Vol] 0.92 mg/dL Normal 0.55-1.02 [facility] Comment on above: Order Comment: 104-1 Result Comment: The validity of the calculated GFR GFRAA in patients over 70 years has not been determined. Clinical correlation is essential. Performed By: #### L [id number] #### [facility] [address] [place], [address] EST GFR - AA 75 mL/min Normal >60 [facility] Comment on above: Order Comment: 104-1 Result Comment: Afri can Japanese GFR Calc Performed By: #### L [id number] #### [facility] [address] [place], [address] GAP 9 Normal 5-15 [facility] Comment on above: Order Comment: 104-1 Performed By: #### L [id number] #### [facility] [address] [place], [address] GFR/1.73 sq M.predicted among non-blacks MDRD (S/P/Bld) [Vol rate/Area] 62 mL/min/{1.73_m2} Normal >60 [facility] Comment on above: Order Comment: 104-1 Result Comment: Non- GFR Calc Performed By: #### L 9200.0000 #### [facility] [address] [place], [address] Glucose [Mass/Vol] 115 mg/dL High 74-106 [facility] Comment on above: Order Comment: 104-1 Result Comment: Fast ing Glucose result from 100 to 125 mg/dL suggests IMPAIRED HOMEOSTASIS per A.D.A. criteria. Performed By: #### L 9200.0000 #### [facility] [address] [place], [address] Potassium [Moles/Vol] 4.4 mmol/L Normal 3.5-5.1 [facility] Comment on above: Order Comment: 104-1 Performed By: #### L [id number] #### [facility] [address] [place], [address] Sodium [Moles/Vol] 139 mmol/L Normal 136-145 [facility] Comment on above: Order Comment: 104-1 Performed By: #### L [id number] #### [facility] [address] [place], [address] Urea nitrogen [Mass/Vol] 19 mg/dL High 7-18 [facility] Comment on above: Order Comment: 104-1 Performed By: #### L [id number] #### [facility] [address] [place], [address] Bilirubin Test strip Ql (U)O rdered By: Megan Montoya on 09-03-2024 Bilirubin Ql (U) Negative Negative [facility] Blood urea nitrogen (BUN)/cr eatinine ratioOrdered By: Megan Montoya on 09-03-2024 Urea nitrogen/Creatinine [Mass ratio] 20.7 mg/mg High 10-20 [facility] CBC-Complete Blood Cnt No Di ffon 09-03-2024 Erythrocyte distribution width (RBC) [Ratio] 17.9 % High 11.6-14.6 [facility] Comment on above: Order Comment: 104-1 Performed By: #### L [id number] #### [facility] [address] [place], [address] Hematocrit (Bld) [Volume fraction] 30.8 % Low 37-47 [facility] Comment on above: Order Comment: 104-1 Performed By: #### L [id number] #### [facility] [address] [place], [address] Hemoglobin (Bld) [Mass/Vol] 9.5 g/dL Low 12.0-15.0 [facility] Comment on above: Order Comment: 104-1 Performed By: #### L [id number] #### [facility] [address] [place], [address] MCH (RBC) [Entitic mass] 25.7 pg Low 27.0-32.0 [facility] Comment on above: Order Comment: 104-1 Performed By: #### L [id number] #### [facility] [address] [place], [address] MCHC (RBC) [Mass/Vol] 30.8 g/dL Low 32-36 [facility] Comment on above: Order Comment: 104-1 Performed By: #### L [id number] #### [facility] [address] [place], [address] MCV (RBC) [Entitic vol] 83.5 fL Normal 81-99 [facility] Comment on above: Order Comment: 104-1 Performed By: #### L [id number] #### [facility] [address] [place], [address] Platelet mean volume (Bld) [Entitic vol] 10.2 fL Normal 6.2-12.0 [facility] Comment on above: Order Comment: 104-1 Performed By: #### L [id number] #### [facility] [address] [place], [address] Platelets (Bld) [#/Vol] 431 10*3/uL Normal 150-450 [facility] Comment on above: Order Comment: 104-1 Performed By: #### L [id number] #### [facility] [address] [place], [address] RBC (Bld) [#/Vol] 3.69 10*6/uL Low 4.2-5.4 [facility] Comment on above: Order Comment: 104-1 Performed By: #### L [id number] #### [facility] [address] [place], [address] RDW SD 54.3 fl High 35.1-43.9 [facility] Comment on above: Order Comment: 104-1 Performed By: #### L [id number] #### [facility] [address] [place], [address] WBC (Bld) [#/Vol] 10.6 10*3/uL Normal 4.4-11.0 [facility] Comment on above: Order Comment: 104-1 Performed By: #### L [id number] #### [facility] [address] [place], [address] Carbon dioxide measurementOr dered By: Megan Montoya on 09-03-2024 CO2 [Moles/Vol] 21.0 mmol/L 21.0-32.0 [facility] Chloride measurementOrdered By: Megan Montoya on 09-03-2024 Chloride [Moles/Vol] 109 mmol/L High 98-107 [facility] Epithelial cells.squamous LM Ql (Urine sed)Ordered By: Megan Montoya on 09-03-2024 Epithelial cells.squamous LM.HPF (Urine sed) [#/Area] 10 /[HPF] 5-10 [facility] Erythrocyte distribution wid th ratioOrdered By: Megan Montoya on 09-03-2024 Erythrocyte distribution width (RBC) [Ratio] 17.9 % High 11.6-14.6 [facility] Erythrocyte distribution wid th standard deviationOrdered By: Megan Montoya on 09-03-2024 Erythrocyte distribution width (RBC) [Entitic vol] 54.3 fL High 35.1-43.9 [facility] Estimated glomerular filtrat ion rate (GFR) AmericanOrdered By: Megan Montoya on 09-03-2024 Estimated GFR (MDRD) Amer 75 mL/min >60 [facility] Comment on above: GFR Calc Glomerular filtration rate ( GFR) estimationOrdered By: Megan Montoya on 09-03-2024 Estimated GFR (MDRD) Non-Af Amer 62 mL/min >60 [facility] Comment on above: Non- GFR Calc Glucose Ql (U)Ordered By: Johnathan Guzman on 09-03-2024 Urine Glucose (UA) Normal mg/dl Normal [facility] Glucose measurementOrdered B y: Megan Montoya on 09-03-2024 Glucose [Mass/Vol] 115 mg/dL High 74-106 [facility] Comment on above: Fasting Glucose resu lt from 100 to 125 mg/dL suggests IMPAIRED HOMEOSTASIS per A.D.A. criteria. Hematocrit Auto (Bld) [Volum e fraction]Ordered By: Megan Montoya on 09-03-2024 Hematocrit (Bld) [Volume fraction] 30.8 % Low 37-47 [facility] Hemoglobin measurementOrdere d By: Megan Montoya on 09-03-2024 Hemoglobin (Bld) [Mass/Vol] 9.5 g/dL Low 12.0-15.0 [facility] Ketones Test strip Ql (U)Ord ered By: Megan Montoya on 09-03-2024 Ketones Ql (U) 5 mg/dl High Negative [facility] MCV (mean corpuscular volume ) determinationOrdered By: Megan Montoya on 09-03-2024 MCV (RBC) [Entitic vol] 83.5 fL 81-99 [facility] Mean corpuscular hemoglobin (MCH) determinationOrdered By: Megan Montoya on 09-03-2024 MCH (RBC) [Entitic mass] 25.7 pg Low 27.0-32.0 [facility] Mean corpuscular hemoglobin concentration (MCHC) determinationOrdered By: Megan Montoya on 09-03-2024 MCHC (RBC) [Mass/Vol] 30.8 g/dL Low 32-36 [facility] Mean platelet volume determi nationOrdered By: Megan Montoya on 09-03-2024 Platelet mean volume (Bld) [Entitic vol] 10.2 fL 6.2-12.0 [facility] Microscopic analysis of urin e for red blood cells (RBC)Ordered By: Megan Montoya on 09-03-2024 Urine RBC 5-10 SEEN /hpf 0-5 [facility] Mucus LM Ql (Urine sed)Order ed By: Megan Montoya on 09-03-2024 Mucus Ql (Urine sed) 1+ /hpf [facility] Nitrite Test strip Ql (U)Ord ered By: Megan Montoya on 09-03-2024 Nitrite Ql (U) Positive High Negative [facility] Platelet countOrdered By: Johnathan Guzman on 09-03-2024 Platelets (Bld) [#/Vol] 431 10*3/uL 150-450 [facility] Potassium measurementOrdered By: Megan Montoya on 09-03-2024 Potassium [Moles/Vol] 4.4 mmol/L 3.5-5.1 [facility] Protein Test strip Ql (U)Ord ered By: Megan Montoya on 09-03-2024 Protein Ql (U) 100 mg/dl High Negative [facility] RBC Auto (Bld) [#/Vol]Ordere d By: Megan Montoya on 09-03-2024 RBC (Bld) [#/Vol] 3.69 10*6/uL Low 4.2-5.4 [facility] Serum anion gap measurementO rdered By: Megan Montoya on 09-03-2024 Anion gap [Moles/Vol] 9 mmol/L 5-15 [facility] Serum or plasma calcium reyna urement (mass/volume)Ordered By: Megan Montoya on 09-03-2024 Calcium [Mass/Vol] 9.4 mg/dL 8.5-10.1 [facility] Serum or plasma creatinine m easurement (mass/volume)Ordered By: Megan Montoya on 09-03-2024 Creatinine [Mass/Vol] 0.92 mg/dL 0.55-1.02 [facility] Comment on above: The validity of the calculated GFR & GFRAA in patients over 70 years has not been determined. Clinical correlation is essential. Serum or plasma urea nitroge n measurement (mass/volume)Ordered By: Megan Montoya on 09-03-2024 Urea nitrogen [Mass/Vol] 19 mg/dL High 7-18 [facility] Sodium levelOrdered By: Juan C Montoya on 09-03-2024 Sodium [Moles/Vol] 139 mmol/L 136-145 [facility] Urine blood detectionOrdered By: Megan Montoya on 09-03-2024 Urine Occult Blood 150 /ul High Negative [facility] Urine clarityOrdered By: Pola Montoya on 09-03-2024 Clarity (U) Cloudy Clear [facility] Urine color determinationOrd ered By: Megan Montoya on 09-03-2024 Color (U) Yellow Yellow [facility] Urine cultureOrdered By: Pola Montoya on 09-03-2024 Bacteria identified Cx Nom (U) Proteus mirabilis Abnormal [facility] Bacteria identified Cx Nom (U) Klebsiella pneumoniae sp pneum Abnormal [facility] Bacteria identified Cx Nom (U) Proteus mirabilis Abnormal [facility] Bacteria identified Cx Nom (U) Klebsiella pneumoniae sp pneum Abnormal [facility] Urine leukocyte esterase det ection by dipstickOrdered By: Megan Montoya on 09-03-2024 Leukocyte esterase Test strip Ql (U) 500 /ul High Negative [facility] Urine pHOrdered By: Megan jimenez on 09-03-2024 pH (U) 6.0 [pH] 5.0 - 8.0 [facility] Urine sediment bacteria coun t by microscopy (number/high power field)Ordered By: Megan Montoya on 09-03-2024 Bacteria LM.HPF (Urine sed) [#/Area] 4 /[HPF] None Seen [facility] Urine specific gravity measu rementOrdered By: Megan Montoya on 09-03-2024 Specific gravity (U) [Rel density] 1.020 1.002-1.030 [facility] Urobilinogen Ql (U)Ordered B y: Megan Montoya on 09-03-2024 Urine Urobilinogen Normal mg/dl Normal [facility] White blood cell (WBC) count Ordered By: Megan Montoya on 09-03-2024 WBC (Bld) [#/Vol] 10.6 10*3/uL 4.4-11.0 [facility] White blood cell countOrdere d By: Megan Montoya on 09-03-2024 Urine WBC 50-100 SEEN /hpf 0-5 [facility] [id number] 08-27-2024 [id number] Patient Choice Patient Name: MEL POP Date of : 1940 Normal [facility] Progress Noteon 08-22-2024 Progress Note Normal [facility] Albumin to globulin ratioOrd ered By: Megan Montoya on 08-20-2024 Albumin/Globulin [Mass ratio] 0.7 {ratio} Low 0.9-2.4 [facility] Bilirubin, totalOrdered By: Megan Montoya on 08-20-2024 Bilirubin [Mass/Vol] 0.60 mg/dL 0.20-1.00 [facility] Comment on above: For patients on eltr ombopag therapy, use of Dimension [place] TBIL is not recommended. Blood urea nitrogen (BUN)/cr eatinine ratioOrdered By: Megan Montoya on 08-20-2024 Urea nitrogen/Creatinine [Mass ratio] 11.2 mg/mg 10-20 [facility] CBC-Complete Blood Cnt No Di ffon 08-20-2024 Erythrocyte distribution width (RBC) [Ratio] 19.2 % High 11.6-14.6 [facility] Comment on above: Performed By: #### L 100.0500, [id number] #### [facility] [address] [place], [address] Hematocrit (Bld) [Volume fraction] 33.4 % Low 37-47 [facility] Comment on above: Performed By: #### L 100.0500, [id number] #### [facility] [address] [place], [address] Hemoglobin (Bld) [Mass/Vol] 10.4 g/dL Low 12.0-15.0 [facility] Comment on above: Performed By: #### L 100.0500, [id number] #### [facility] [address] [place], [address] MCH (RBC) [Entitic mass] 26.3 pg Low 27.0-32.0 [facility] Comment on above: Performed By: #### L 100.0500, [id number] #### [facility] [address] [place], [address] MCHC (RBC) [Mass/Vol] 31.1 g/dL Low 32-36 [facility] Comment on above: Performed By: #### L 100.0500, [id number] #### [facility] [address] [place], [address] MCV (RBC) [Entitic vol] 84.6 fL Normal 81-99 [facility] Comment on above: Performed By: #### L 100.0500, [id number] #### [facility] [address] [place], [address] Platelet mean volume (Bld) [Entitic vol] 9.7 fL Normal 6.2-12.0 [facility] Comment on above: Performed By: #### L 100.0500, [id number] #### [facility] [address] [place], [address] Platelets (Bld) [#/Vol] 405 10*3/uL Normal 150-450 [facility] Comment on above: Performed By: #### L 100.0500, [id number] #### [facility] [address] [place], [address] RBC (Bld) [#/Vol] 3.95 10*6/uL Low 4.2-5.4 [facility] Comment on above: Performed By: #### L 100.0500, [id number] #### [facility] [address] [place], [address] RDW SD 58.9 fl High 35.1-43.9 [facility] Comment on above: Performed By: #### L 100.0500, [id number] #### [facility] [address] [place], [address] WBC (Bld) [#/Vol] 5.9 10*3/uL Normal 4.4-11.0 [facility] Comment on above: Performed By: #### L 100.0500, [id number] #### [facility] [address] [place], [address] Carbon dioxide measurementOr dered By: Megan Montoya on 08-20-2024 CO2 [Moles/Vol] 22.0 mmol/L 21.0-32.0 [facility] Chloride measurementOrdered By: Megan Montoya on 08-20-2024 Chloride [Moles/Vol] 109 mmol/L High 98-107 [facility] Comprehensive Metabolic Prof ilon 08-20-2024 Albumin [Mass/Vol] 2.7 g/dL Low 3.2-5.0 [facility] Comment on above: Performed By: #### L 100.0500, [id number] #### [facility] [address] [place], [address] Albumin/Globulin [Mass ratio] 0.7 {ratio} Low 0.9-2.4 [facility] Comment on above: Performed By: #### L 100.0500, [id number] #### [facility] [address] [place], [address] ALK P 117 U/L Normal 45-117 [facility] Comment on above: Performed By: #### L 100.0500, [id number] #### [facility] Laboratory [address] [place], [address] ALT [Catalytic activity/Vol] 18 U/L Normal 13-56 [facility] Comment on above: Performed By: #### L 100.0500, L500.4050 #### [facility] Laboratory [address] [place], [address] AST [Catalytic activity/Vol] 18 U/L Normal 15-37 [facility] Comment on above: Result Comment: Slig ht Hemolysis, Result may be falsely increased. Performed By: #### L 100.0500, L500.4050 #### [facility] Laboratory [address] [place], [address] Bilirubin [Mass/Vol] 0.60 mg/dL Normal 0.20-1.00 [facility] Comment on above: Result Comment: For patients on eltrombopag therapy, use of Dimension Jackson TBIL is not recommended. Performed By: #### L 100.0500, L500.4050 #### [facility] Laboratory [address] [place], [address] BUN/CRE 11.2 RATIO Normal 10-20 [facility] Comment on above: Performed By: #### L 100.0500, L500.4050 #### [facility] Laboratory [address] [place], [address] CA,Total 9.0 mg/dL Normal 8.5-10.1 [facility] Comment on above: Performed By: #### L 100.0500, L500.4050 #### [facility] Laboratory [address] [place], [address] Chloride [Moles/Vol] 109 mmol/L High 98-107 [facility] Comment on above: Performed By: #### L 100.0500, L500.4050 #### [facility] Laboratory [address] [place], [address] CO2 [Moles/Vol] 22.0 mmol/L Normal 21.0-32.0 [facility] Comment on above: Performed By: #### L 100.0500, L500.4050 #### [facility] Laboratory [address] [place], [address] Creatinine [Mass/Vol] 0.98 mg/dL Normal 0.55-1.02 [facility] Comment on above: Result Comment: The validity of the calculated GFR GFRAA in patients over 70 years has not been determined. Clinical correlation is essential. Performed By: #### L 100.0500, L500.4050 #### [facility] Laboratory [address] [place], [address] EST GFR - AA 69 mL/min Normal >60 [facility] Comment on above: Result Comment: Afri can Japanese GFR Calc Performed By: #### L 100.0500, L500.4050 #### [facility] Laboratory [address] [place], [address] GAP 7 Normal 5-15 [facility] Comment on above: Performed By: #### L 100.0500, L500.4050 #### [facility] Laboratory [address] [place], [address] GFR/1.73 sq M.predicted among non-blacks MDRD (S/P/Bld) [Vol rate/Area] 57 mL/min/{1.73_m2} Low >60 [facility] Comment on above: Result Comment: Non- GFR Calc Performed By: #### L 100.0500, L500.4050 #### [facility] Laboratory [address] [place], [address] Globulin (S) [Mass/Vol] 4.1 g/dL Normal 2.2-4.2 [facility] Comment on above: Performed By: #### L 100.0500, L500.4050 #### [facility] Laboratory [address] [place], [address] Glucose [Mass/Vol] 97 mg/dL Normal 74-106 [facility] Comment on above: Performed By: #### L 100.0500, L500.4050 #### [facility] Laboratory [address] [place], [address] Potassium [Moles/Vol] 4.2 mmol/L Normal 3.5-5.1 [facility] Comment on above: Result Comment: Slig ht Hemolysis, Result may be falsely increased. Performed By: #### L 100.0500, L500.4050 #### [facility] [address] [place], [address] Sodium [Moles/Vol] 138 mmol/L Normal 136-145 [facility] Comment on above: Performed By: #### L 100.0500, L500.4050 #### [facility] Laboratory [address] [place], [address] T PROT 6.8 g/dL Normal 6.4-8.2 [facility] Comment on above: Performed By: #### L 100.0500, L500.4050 #### [facility] Laboratory [address] [place], [address] Urea nitrogen [Mass/Vol] 11 mg/dL Normal 7-18 [facility] Comment on above: Performed By: #### L 100.0500, L500.4050 #### [facility] Laboratory [address] [place], [address] Erythrocyte distribution wid th ratioOrdered By: Megan Montoya on 08-20-2024 Erythrocyte distribution width (RBC) [Ratio] 19.2 % High 11.6-14.6 [facility] Erythrocyte distribution wid th standard deviationOrdered By: Megan Montoya on 08-20-2024 Erythrocyte distribution width (RBC) [Entitic vol] 58.9 fL High 35.1-43.9 [facility] Estimated glomerular filtrat ion rate (GFR) AmericanOrdered By: Megan Montoya on 08-20-2024 Estimated GFR (MDRD) Amer 69 mL/min >60 [facility] Comment on above: GFR Calc Glomerular filtration rate ( GFR) estimationOrdered By: Megan Montoya on 08-20-2024 Estimated GFR (MDRD) Non-Af Amer 57 mL/min Low >60 [facility] Comment on above: Non- GFR Calc Glucose measurementOrdered B y: Megan Montoya on 08-20-2024 Glucose [Mass/Vol] 97 mg/dL 74-106 [facility] Hematocrit Auto (Bld) [Volum e fraction]Ordered By: Megan Montoya on 08-20-2024 Hematocrit (Bld) [Volume fraction] 33.4 % Low 37-47 [facility] Hemoglobin measurementOrdere d By: Megan Montoya on 08-20-2024 Hemoglobin (Bld) [Mass/Vol] 10.4 g/dL Low 12.0-15.0 [facility] Laboratory - Chemistry and C hemistry - challengeOrdered By: Megan Montoya on 08-20-2024 AST [Catalytic activity/Vol] 18 U/L 15-37 [facility] Comment on above: Slight Hemolysis, Re sult may be falsely increased. MCV (mean corpuscular volume ) determinationOrdered By: eMgan Montoya on 08-20-2024 MCV (RBC) [Entitic vol] 84.6 fL 81-99 [facility] Mean corpuscular hemoglobin (MCH) determinationOrdered By: Megan Montoya on 08-20-2024 MCH (RBC) [Entitic mass] 26.3 pg Low 27.0-32.0 [facility] Mean corpuscular hemoglobin concentration (MCHC) determinationOrdered By: Megan Montoya on 08-20-2024 MCHC (RBC) [Mass/Vol] 31.1 g/dL Low 32-36 [facility] Mean platelet volume determi nationOrdered By: Megan Montoya on 08-20-2024 Platelet mean volume (Bld) [Entitic vol] 9.7 fL 6.2-12.0 [facility] Platelet countOrdered By: Johnathan Guzman on 08-20-2024 Platelets (Bld) [#/Vol] 405 10*3/uL 150-450 [facility] Potassium measurementOrdered By: Megan Montoya on 08-20-2024 Potassium [Moles/Vol] 4.2 mmol/L 3.5-5.1 [facility] Comment on above: Slight Hemolysis, Re sult may be falsely increased. RBC Auto (Bld) [#/Vol]Ordere d By: Megan Montoya on 08-20-2024 RBC (Bld) [#/Vol] 3.95 10*6/uL Low 4.2-5.4 [facility] Serum anion gap measurementO rdered By: Megan Montoya on 08-20-2024 Anion gap [Moles/Vol] 7 mmol/L 5-15 [facility] Serum globulin measurementOr dered By: Megan Montoya on 08-20-2024 Globulin (S) [Mass/Vol] 4.1 g/dL 2.2-4.2 [facility] Serum or plasma alanine hinojosa otransferase (ALT) measurementOrdered By: Megan Montoya on 08-20-2024 ALT [Catalytic activity/Vol] 18 U/L 13-56 [facility] Serum or plasma albumin reyna urement (mass/volume)Ordered By: Megan Montoya on 08-20-2024 Albumin [Mass/Vol] 2.7 g/dL Low 3.2-5.0 [facility] Serum or plasma alkaline silvia sphatase measurementOrdered By: Megan Montoya on 08-20-2024 ALP [Catalytic activity/Vol] 117 U/L 45-117 [facility] Serum or plasma calcium reyna urement (mass/volume)Ordered By: Megan Montoya on 08-20-2024 Calcium [Mass/Vol] 9.0 mg/dL 8.5-10.1 [facility] Serum or plasma creatinine m easurement (mass/volume)Ordered By: Megan Montoya on 08-20-2024 Creatinine [Mass/Vol] 0.98 mg/dL 0.55-1.02 [facility] Comment on above: The validity of the calculated GFR & GFRAA in patients over 70 years has not been determined. Clinical correlation is essential. Serum or plasma urea nitroge n measurement (mass/volume)Ordered By: Megan Montoya on 08-20-2024 Urea nitrogen [Mass/Vol] 11 mg/dL 7-18 [facility] Sodium levelOrdered By: Juan C Montoya on 08-20-2024 Sodium [Moles/Vol] 138 mmol/L 136-145 [facility] Total proteinOrdered By: Pola Montoya on 08-20-2024 Protein [Mass/Vol] 6.8 g/dL 6.4-8.2 [facility] White blood cell (WBC) count Ordered By: Megan Montoya on 08-20-2024 WBC (Bld) [#/Vol] 5.9 10*3/uL 4.4-11.0 [facility] [id number] 08-16-2024 [id number] Normal [facility] [id number] Normal [facility] [id number] MAR & Discharge med list transmitted to [facility] via [employer] per TCC request. Electronically signed by JESSICA Leone Normal [facility] [id number] Normal [facility] Laboratory - Chemistry and C hemistry - challengeon 08-16-2024 Glucose [Mass/Vol] 120 mg/dL High 70 - 100 mg/dL [facility] No Panel Informationon 08-16 Interpretation and review of laboratory results Abnormal [facility] Performed by: [facility], [address] [place] [address], [place] [id number] CLIA ID: [id number] [facility] Nursing Noteon 08-16-2024 Nursing Note Patient picked up fo r transfer to [facility] by stretcher. Report already called to GENET Garcia. Normal [facility] Nursing Note Telephone report erin led to GENET Garcia at [facility]. Normal [facility] Progress Noteon 08-16-2024 Progress Note Normal [facility] 30on 08-15-2024 30 Normal [facility] [id number] 08-15-2024 [id number] Authorization is pending with [employer]. Ref# [id number] to be DC'd to [facility]. Dtr Fidel Sharma. CM to follow. Normal [facility] Progress Noteon 08-15-2024 Progress Note Normal [facility] 30on 08-14-2024 30 Normal [facility] [id number] 08-14-2024 [id number] Normal [facility] Progress Noteon 08-14-2024 Progress Note Normal [facility] Progress Note Normal [facility] Progress Note Normal [facility] 30on 08-13-2024 30 Normal [facility] 30 Normal [facility] [id number] 08-13-2024 [id number] Normal [facility] Progress Noteon 08-13-2024 Progress Note Normal [facility] Progress Note Normal [facility] 08-12-2024 30 Normal [facility] Progress Noteon 08-12-2024 Progress Note Normal [facility] 30on 08-11-2024 30 Normal [facility] 30 Normal [facility] [id number] 08-11-2024 [id number] CM noted DC orders i n place, Dgt touring facilities over the weekend. [facility] pending acceptance, updates sent via [employer]. Normal [facility] Progress Noteon 08-11-2024 Progress Note Normal [facility] 30on 08-10-2024 30 Normal [facility] [id number] 08-10-2024 [id number] Normal [facility] Progress Noteon 08-10-2024 Progress Note Normal [facility] [id number] 08-09-2024 [id number] Normal [facility] [id number] Normal [facility] [id number] Updated PT/OT notes placed to [facility] via [employer] per TCC request. Await review and response regarding ability to accept. TCC notified. Electronically signed by [employer] MANAGER Aracelis Gardiner [facility] [id number] Patient is medically ready for dc. PT/OT both continuing to recommend SNF. 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 Plan to dc back to [facility] pending auth [facility] Progress Noteon 08-09-2024 Progress Note Normal [facility] [id number] 08-08-2024 [id number] [facility] Progress Noteon 08-08-2024 Progress Note Normal [facility] Progress Note Normal [facility] Progress Note Normal [facility] 30on 08-07-2024 30 Normal [facility] 30 Normal [facility] 30 Normal [facility] [id number] 08-07-2024 [id number] [facility] Progress Noteon 08-07-2024 Progress Note Normal [facility] 30on 08-06-2024 30 Normal [facility] 30 Normal [facility] [id number] 08-06-2024 [id number] Pt cont's on IV AtBs '. Plan is for pt to return to [facility]. Auth and HECTOR needed prior to DC. CM to follow. [facility] [id number] [facility] Comprehensive metabolic 1998 panelon 08-06-2024 Albumin [Mass/Vol] 2.4 g/dL Low 3.4 - 4.8 g/dL [facility] ALP [Catalytic activity/Vol] 72 U/L 40 - 150 U/L [facility] ALT [Catalytic activity/Vol] 24 U/L NINF - 30 U/L [facility] Anion gap [Moles/Vol] 7 mmol/L 3 - 13 mmol/L [facility] AST [Catalytic activity/Vol] 21 U/L NINF - 34 U/L [facility] Bilirubin [Mass/Vol] 0.9 mg/dL NINF - 1.2 mg/dL [facility] Calcium [Mass/Vol] 8.4 mg/dL Low 8.8 - 10. 0 mg/dL [facility] Chloride [Moles/Vol] 115 mmol/L High 98 - 10 7 mmol/L [facility] CO2 [Moles/Vol] 17 mmol/L Low 23 - 31 mmol/L [facility] Creatinine [Mass/Vol] 0.91 mg/dL 0.57 - 1.11 mg/dL [facility] GFR/1.73 sq M.predicted (S/P/Bld) [Vol rate/Area] 62.3 mL/min - PINF [facility] Comment on above: Calculation based on the Chronic Kidney Disease Epidemiology Collaboration (CKD-EPI) equation refit without adjustment for race Glucose [Mass/Vol] 92 mg/dL 82 - 115 mg/dL [facility] Interpretation and review of laboratory results Abnormal [facility] Potassium [Moles/Vol] 3.8 mmol/L 3.5 - 5.1 mmol/L [facility] Comment on above: Plasma potassium chris ues may be up to 0.5 mmol/L lower than serum values. Protein [Mass/Vol] 5.5 g/dL Low 6.4 - 8.3 g/dL [facility] Sodium [Moles/Vol] 139 mmol/L 136 - 145 mmol/L [facility] Urea nitrogen [Mass/Vol] 9 mg/dL 9 - 23 mg/dL [facility] Consulton 08-06-2024 Consult Normal [facility] Progress Noteon 08-06-2024 Progress Note Normal [facility] Progress Note Normal [facility] 30on 08-05-2024 30 Normal [facility] CBC W Auto Differential pane l (Bld)Ordered By: Frank Milligan on 08-05-2024 Basophils (Bld) [#/Vol] 0 10*3/uL 0.0 - 0.2 10*3/uL [facility] Basophils/100 WBC (Bld) 0.3 % 0.0 - 2.0 % [facility] Eosinophils (Bld) [#/Vol] 0.1 10*3/uL 0.0 - 0.5 10*3/uL [facility] Eosinophils/100 WBC (Bld) 1.6 % 0.0 - 6.0 % [facility] [employer] Erythrocyte distribution width (RBC) [Ratio] 18.9 % High 11.5 - 15.0 % [facility] Hematocrit (Bld) [Volume fraction] 33.3 % Low 35.0 - 47.0 % [facility] Hemoglobin (Bld) [Mass/Vol] 10.3 g/dL Low 11.7 - 16.0 g/dL [facility] Immature granulocytes (Bld) [#/Vol] 0.1 10*3/uL High NINF - 0.1 10*3/uL [facility] Immature granulocytes/100 WBC (Bld) 0.7 % 0.0 - 2.0 % [facility] Interpretation and review of laboratory results Abnormal [facility] Lymphocytes (Bld) [#/Vol] 1.1 10*3/uL 1.0 - 4.3 10*3/uL [facility] Lymphocytes/100 WBC (Bld) 15.6 % 15.0 - 45.0 % [facility] MCH (RBC) [Entitic mass] 26 pg 26.0 - 34.0 pg [facility] MCHC (RBC) [Mass/Vol] 30.9 % 30.5 - 36.0 % [facility] MCV (RBC) [Entitic vol] 84.1 fL 77.0 - 99.0 fL [facility] Monocytes (Bld) [#/Vol] 0.7 10*3/uL 0.0 - 0.9 10*3/uL [facility] Monocytes/100 WBC (Bld) 9.9 % 5.0 - 13.0 % [facility] Neutrophils (Bld) [#/Vol] 5.3 10*3/uL 1.8 - 7.5 10*3/uL [facility] Neutrophils/100 WBC (Bld) 71.9 % 38.0 - 82.0 % [facility] Nucleated RBC/100 WBC (Bld) [Ratio] 0 % [facility] Platelet mean volume (Bld) [Entitic vol] 9.2 fL 9.0 - 12.7 fL [facility] [employer] Platelets (Bld) [#/Vol] 235 10*3/uL 140 - 440 10*3/uL [facility] RBC (Bld) [#/Vol] 3.96 10*6/uL 3.80 - 5.2 0 10*6/uL [facility] WBC (Bld) [#/Vol] 7.3 10*3/uL 3.6 - 10.7 10*3/uL [facility] CBC W Auto Differential pane l (Bld)Ordered By: Aden Baires on 08-05-2024 Basophils (Bld) [#/Vol] 0 10*3/uL 0.0 - 0.2 10*3/uL [facility] Basophils/100 WBC (Bld) 0.3 % 0.0 - 2.0 % [facility] Eosinophils (Bld) [#/Vol] 0.1 10*3/uL 0.0 - 0.5 10*3/uL [facility] Eosinophils/100 WBC (Bld) 1.5 % 0.0 - 6.0 % [facility] Erythrocyte distribution width (RBC) [Ratio] 19.2 % High 11.5 - 15.0 % [facility] Hematocrit (Bld) [Volume fraction] 31.9 % Low 35.0 - 47.0 % [facility] Hemoglobin (Bld) [Mass/Vol] 9.9 g/dL Low 11.7 - 16.0 g/dL [facility] Immature granulocytes (Bld) [#/Vol] 0 10*3/uL NINF - 0.1 10*3/uL [facility] Immature granulocytes/100 WBC (Bld) 0.5 % 0.0 - 2.0 % [facility] Interpretation and review of laboratory results Abnormal [facility] Lymphocytes (Bld) [#/Vol] 1.1 10*3/uL 1.0 - 4.3 10*3/uL [facility] Lymphocytes/100 WBC (Bld) 16.6 % 15.0 - 45.0 % [facility] MCH (RBC) [Entitic mass] 26.2 pg 26.0 - 34.0 pg [facility] MCHC (RBC) [Mass/Vol] 31 % 30.5 - 36.0 % [facility] MCV (RBC) [Entitic vol] 84.4 fL 77.0 - 99.0 fL [facility] Monocytes (Bld) [#/Vol] 0.6 10*3/uL 0.0 - 0.9 10*3/uL [facility] Monocytes/100 WBC (Bld) 9.1 % 5.0 - 13.0 % [facility] Neutrophils (Bld) [#/Vol] 4.7 10*3/uL 1.8 - 7.5 10*3/uL [facility] Neutrophils/100 WBC (Bld) 72 % 38.0 - 82.0 % [facility] Nucleated RBC/100 WBC (Bld) [Ratio] 0 % [facility] Platelet mean volume (Bld) [Entitic vol] 10 fL 9.0 - 12.7 fL [facility] Platelets (Bld) [#/Vol] 242 10*3/uL 140 - 440 10*3/uL [facility] RBC (Bld) [#/Vol] 3.78 10*6/uL Low 3.80 - 5.2 0 10*6/uL [facility] WBC (Bld) [#/Vol] 6.5 10*3/uL 3.6 - 10.7 10*3/uL [facility] CBC WITH AUTO DIFFERENTIALon 08-05-2024 Basophils (Bld) [#/Vol] 0.0 10*3/uL Normal 0.0-0.2 [facility] Comment on above: Performed By: #### L [id number] ####Crabber: VELMA VALADEZ ([phone])[facility])[address] [place] [address] Basophils/100 WBC (Bld) 0.3 % Normal 0.0-2.0 [facility] Comment on above: Performed By: #### L [id number] ####Crabber: VELMA VALADEZ ([id number])[facility])[address] [place] [address] [place] Eosinophils (Bld) [#/Vol] 0.1 10*3/uL Normal 0.0-0.5 [facility] Comment on above: Performed By: #### L [id number] ####Crabber: VELMA VALADEZ ([id number])[facility] ([facility])[address] [place] [address] [place] Eosinophils/100 WBC (Bld) 1.6 % Normal 0.0-6.0 [facility] Comment on above: Performed By: #### L [id number] ####Crabber: VELMA VALADEZ ([id number])[address] Erythrocyte distribution width (RBC) [Ratio] 18.9 % High 11.5-15.0 [facility] Comment on above: Performed By: #### L [id number] ####Crabber: VELMA VALADEZ ([phone])[address] Hematocrit (Bld) [Volume fraction] 33.3 % Low 35.0-47.0 [facility] Comment on above: Performed By: #### L [id number] ####Crabber: VELMA VALADEZ ([id number])[address] Hemoglobin (Bld) [Mass/Vol] 10.3 g/dL Low 11.7-16.0 [facility] Comment on above: Performed By: #### L [id number] ####Crabber: VELMA VALADEZ ([id number])[address] IMMATURE GRANS % 0.7 % Normal 0.0-2.0 [facility] Comment on above: Performed By: #### L [id number] ####Crabber: VELMA VALADEZ ([id number])[address] IMMATURE GRANS ABSOLUTE 0.1 10*3/uL High <0.1 [facility] Comment on above: Performed By: #### L [id number] ####Crabber: VELMA VALADEZ ([id number])[address] Lymphocytes (Bld) [#/Vol] 1.1 10*3/uL Normal 1.0-4.3 [facility] Comment on above: Performed By: #### L [id number] ####Crabber: VELMA VALADEZ ([id number])[facility])[address] [place] [address] Lymphocytes/100 WBC (Bld) 15.6 % Normal 15.0-45.0 [facility] Comment on above: Performed By: #### L [id number] ####Crabber: VELMA VALADEZ ([id number])[facility])[address] [place] [address] MCH (RBC) [Entitic mass] 26.0 pg Normal 26.0-34.0 [facility] Comment on above: Performed By: #### L [id number] ####Crabber: VELMA VALADEZ ([id number])[facility])[address] [place] [address] MCHC 30.9 % Normal 30.5-36.0 [facility] Comment on above: Performed By: #### L [id number] ####Crabber: VELMA VALADEZ ([id number])[facility] ([facility])[address] [place] [address] MCV (RBC) [Entitic vol] 84.1 fL Normal 77.0-99.0 [facility] Comment on above: Performed By: #### L [id number] ####Crabber: VELMA VALADEZ ([id number])[facility])[address] [place] [address] Monocytes (Bld) [#/Vol] 0.7 10*3/uL Normal 0.0-0.9 [facility] Comment on above: Performed By: #### L [id number] ####Crabber: VELMA VALADEZ ([id number])[facility])[address] [place] [address] Monocytes/100 WBC (Bld) 9.9 % Normal 5.0-13.0 [facility] Comment on above: Performed By: #### L [id number] ####Crabber: VELMA VALADEZ ([id number])[facility])[address] [place] [address] NEUTROPHILS ABSOLUTE 5.3 10*3/uL Normal 1.8-7.5 [facility] Comment on above: Performed By: #### L [id number] ####Crabber: VELMA VALADEZ ([id number])[facility] ([facility])[address] [place] [address] Neutrophils/100 WBC (Bld) 71.9 % Normal 38.0-82.0 [facility] Comment on above: Performed By: #### L [id number] ####Crabber: VELMA VALADEZ ([id number])[facility] ([facility])[address] [place] [address] NRBC 0.0 /100 WBCs Normal 0.0-2.0 [facility] Comment on above: Performed By: #### L [id number] ####Crabber: VELMA VALADEZ ([id number])[facility] ([facility])[address] [place] [address] Platelet mean volume (Bld) [Entitic vol] 9.2 fL Normal 9.0-12.7 [facility] Comment on above: Performed By: #### L [id number] ####Crabber: VELMA VALADEZ ([id number])[facility] ([facility])[address] [place] [address] Platelets (Bld) [#/Vol] 235 10*3/uL Normal 140-440 [facility] Comment on above: Performed By: #### L [id number] ####Crabber: EVLMA VALADEZ ([id number])[facility] ([facility])[address] [place] [address] RBC (Bld) [#/Vol] 3.96 10*6/uL Normal 3.80-5.20 [facility] Comment on above: Performed By: #### L [id number] ####Crabber: VELMA VALADEZ ([id number])[facility] ([facility])[address] [place] [address] [place] WBC (Bld) [#/Vol] 7.3 10*3/uL Normal 3.6-10.7 [facility] Comment on above: Performed By: #### L [id number] ####Crabber: VELMA VALADEZ ([phone])[facility])[address] [place] [address] Basophils (Bld) [#/Vol] 0.0 10*3/uL Normal 0.0-0.2 [facility] Comment on above: Performed By: #### L [id number] ####Crabber: VELMA VALADEZ ([id number])[facility] ([facility])[address] [place] [address] Basophils/100 WBC (Bld) 0.3 % Normal 0.0-2.0 [facility] Comment on above: Performed By: #### L [id number] ####Crabber: VELMA VALADEZ ([phone])[facility])[address] [place] [address] Eosinophils (Bld) [#/Vol] 0.1 10*3/uL Normal 0.0-0.5 [facility] Comment on above: Performed By: #### L [id number] ####Crabber: VELMA VALADEZ ([phone])[facility])[address] [place] [address] Eosinophils/100 WBC (Bld) 1.5 % Normal 0.0-6.0 [facility] Comment on above: Performed By: #### L [id number] ####Crabber: VELMA VALADEZ ([phone])[facility])[address] [place] [address] Erythrocyte distribution width (RBC) [Ratio] 19.2 % High 11.5-15.0 [facility] Comment on above: Performed By: #### L [id number] ####Crabber: VELMA VALADEZ ([phone])[facility])[address] [place] [address] Hematocrit (Bld) [Volume fraction] 31.9 % Low 35.0-47.0 [facility] Comment on above: Performed By: #### L [id number] ####Crabber: VELMA VALADEZ ([phone])[facility])[address] [place] [address] Hemoglobin (Bld) [Mass/Vol] 9.9 g/dL Low 11.7-16.0 [facility] Comment on above: Performed By: #### L [id number] ####Crabber: VELMA VALADEZ ([phone])[facility])[address] [place] [address] IMMATURE GRANS % 0.5 % Normal 0.0-2.0 [facility] Comment on above: Performed By: #### L [id number] ####Crabber: VELMA VALADEZ ([phone])[facility])[address] [place] [address] IMMATURE GRANS ABSOLUTE 0.0 10*3/uL Normal <0.1 [facility] Comment on above: Performed By: #### L [id number] ####Crabber: VELMA VALADEZ ([phone])[facility])[address] [place] [address] Lymphocytes (Bld) [#/Vol] 1.1 10*3/uL Normal 1.0-4.3 [facility] Comment on above: Performed By: #### L [id number] ####Crabber: VELMA VALADEZ ([phone])[facility])[address] [place] [address] Lymphocytes/100 WBC (Bld) 16.6 % Normal 15.0-45.0 [facility] Comment on above: Performed By: #### L [id number] ####Crabber: VELMA VALADEZ ([phone])[facility])[address] [place] [address] MCH (RBC) [Entitic mass] 26.2 pg Normal 26.0-34.0 [facility] Comment on above: Performed By: #### L [id number] ####Crabber: VELMA [id number])[facility] ([facility])[address] [place] [address] MCHC 31.0 % Normal 30.5-36.0 [facility] Comment on above: Performed By: #### L [id number] ####Crabber: VELMA VALADEZ ([phone])[facility] ([facility])[address] [place] [address] MCV (RBC) [Entitic vol] 84.4 fL Normal 77.0-99.0 [facility] Comment on above: Performed By: #### L [id number] ####Crabber: VELMA VALADEZ ([id number])[facility] ([facility])[address] [place] [address] Monocytes (Bld) [#/Vol] 0.6 10*3/uL Normal 0.0-0.9 [facility] Comment on above: Performed By: #### L [id number] ####Crabber: VELMA VALADEZ ([id number])[facility] ([facility])[address] [place] [address] Monocytes/100 WBC (Bld) 9.1 % Normal 5.0-13.0 [facility] Comment on above: Performed By: #### L [id number] ####Crabber: VELMA VALADEZ ([phone])[facility] ([facility])[address] [place] [address] NEUTROPHILS ABSOLUTE 4.7 10*3/uL Normal 1.8-7.5 [facility] Comment on above: Performed By: #### L [id number] ####Crabber: VELMA VALADEZ ([phone])[facility] ([facility])[address] [place] [address] Neutrophils/100 WBC (Bld) 72.0 % Normal 38.0-82.0 [facility] Comment on above: Performed By: #### L [id number] ####Crabber: VELMA VALADEZ ([phone])[facility] ([facility])[address] [place] [address] NRBC 0.0 /100 WBCs Normal 0.0-2.0 [facility] Comment on above: Performed By: #### L [id number] ####Crabber: VELMA VALADEZ ([phone])[facility])[address] [place] [address] Platelet mean volume (Bld) [Entitic vol] 10.0 fL Normal 9.0-12.7 [facility] Comment on above: Performed By: #### L [id number] ####Crabber: VELMA VALADEZ ([phone])[facility] ([facility])[address] [place] [address] Platelets (Bld) [#/Vol] 242 10*3/uL Normal 140-440 [facility] Comment on above: Performed By: #### L [id number] ####Crabber: VELMA VALADEZ ([phone])[facility])[address] [place] [address] RBC (Bld) [#/Vol] 3.78 10*6/uL Low 3.80-5.20 [facility] Comment on above: Performed By: #### L [id number] ####Crabber: VELMA VALADEZ ([phone])[facility])[address] [place] [address] WBC (Bld) [#/Vol] 6.5 10*3/uL Normal 3.6-10.7 [facility] Comment on above: Performed By: #### L [id number] ####Crabber: VELMA VALADEZ ([phone])[facility] ([facility])[address] [place] [address] COMPREHENSIVE METABOLIC PANE Gilberto 08-05-2024 Albumin [Mass/Vol] 2.4 g/dL Low 3.4-4.8 [facility] Comment on above: Performed By: #### L [id number] ####Crabber: VELMA VALADEZ ([phone])[facility])[address] [place] [address] ALP [Catalytic activity/Vol] 72 U/L Normal 40-150 [facility] Comment on above: Performed By: #### L [id number] ####Crabber: VELMA VALADEZ ([id number])[facility])[address] [place] [address] ALT [Catalytic activity/Vol] 24 U/L Normal <30 [facility] Comment on above: Performed By: #### L [id number] ####Crabber: EVLMA VALADEZ ([phone])[facility])[address] [place] [address] Anion gap [Moles/Vol] 7 mmol/L Normal 3-13 [facility] Comment on above: Performed By: #### L [id number] ####Crabber: VELMA VALADEZ ([id number])[facility])[address] [place] [address] AST [Catalytic activity/Vol] 21 U/L Normal <34 [facility] Comment on above: Performed By: #### L [id number] ####Crabber: VELMA VALADEZ ([phone])[facility] ([facility])[address] [place] [address] Bilirubin [Mass/Vol] 0.9 mg/dL Normal <1.2 [facility] Comment on above: Performed By: #### L [id number] ####Crabber: VELMA VALADEZ ([phone])[facility] ([facility])[address] [place] [address] Calcium [Mass/Vol] 8.4 mg/dL Low 8.8-10.0 [facility] Comment on above: Performed By: #### L [id number] ####Crabber: VELMA VALADEZ ([phone])[facility] ([facility])[address] [place] [address] [place] Chloride [Moles/Vol] 115 mmol/L High 98-107 [facility] Comment on above: Performed By: #### L [id number] ####Crabber: VELMA VALADEZ ([phone])[facility] ([facility])[address] [place] [address] [place] CO2 [Moles/Vol] 17 mmol/L Low 23-31 [facility] Comment on above: Performed By: #### L [id number] ####Crabber: VELMA VALADEZ ([phone])[facility])[address] [place] [address] Creatinine [Mass/Vol] 0.91 mg/dL Normal 0.57-1.11 [facility] Comment on above: Performed By: #### L [id number] ####Crabber: VELMA VALADEZ ([phone])[facility])[address] [place] [address] [place] GLOMERULAR FILTRATION RATE ML/MIN/1.73 SQ M.PREDICTED 62.3 mL/min/1.73m*2 Normal >60.0 [facility] Comment on above: Result Comment: Calc ulation based on the Chronic Kidney Disease Epidemiology Collaboration (CKD-EPI) equation refit without adjustment for race Performed By: #### L [id number] ####Crabber: VELMA VALADEZ ([phone])[facility] ([facility])[address] [place] [address] [place] Glucose [Mass/Vol] 92 mg/dL Normal 82-115 [facility] Comment on above: Performed By: #### L [id number] ####Crabber: VELMA VALADEZ ([phone])[facility])[address] [place] [address] [place] Potassium [Moles/Vol] 3.8 mmol/L Normal 3.5-5.1 [facility] Comment on above: Result Comment: [facility] potassium values may be up to 0.5 mmol/L lower than serum values. Performed By: #### L [id number] ####Crabber: VELMA VALADEZ ([phone])[facility] ([facility])[address] [place] [address] [place] Protein [Mass/Vol] 5.5 g/dL Low 6.4-8.3 [facility] Comment on above: Performed By: #### L [id number] ####Crabber: VELMA VALADEZ ([phone])[facility])[address] [place] [address] Sodium [Moles/Vol] 139 mmol/L Normal 136-145 [facility] Comment on above: Performed By: #### L [id number] ####Crabber: VELMA VALADEZ ([id number])[facility])[address] [place] [address] Urea nitrogen [Mass/Vol] 9 mg/dL Normal 9-23 [facility] Comment on above: Performed By: #### L [id number] ####Crabber: VELMA VALADEZ ([id number])[facility] ([facility])[address] [place] [address] Albumin [Mass/Vol] 2.3 g/dL Low 3.4-4.8 [facility] Comment on above: Performed By: #### L [id number] ####Crabber: VELMA VALADEZ ([phone])[facility] ([facility])[address] [place] [address] ALP [Catalytic activity/Vol] 74 U/L Normal 40-150 [facility] Comment on above: Performed By: #### L [id number] ####Crabber: VELMA VALADEZ ([id number])[facility])[address] [place] [address] ALT [Catalytic activity/Vol] 27 U/L Normal <30 [facility] Comment on above: Performed By: #### L [id number] ####Crabber: VELMA VALADEZ ([phone])[facility])[address] [place] [address] Anion gap [Moles/Vol] 5 mmol/L Normal 3-13 [facility] Comment on above: Performed By: #### L [id number] ####Crabber: VELMA VALADEZ ([phone])[facility])[address] [place] [address] AST [Catalytic activity/Vol] 24 U/L Normal <34 [facility] Comment on above: Performed By: #### L [id number] ####Crabber: VELMA [id number])[facility] [place] [address] Bilirubin [Mass/Vol] 0.6 mg/dL Normal <1.2 [facility] Comment on above: Performed By: #### L [id number] ####Crabber: VELMA VALADEZ ([phone])[facility] ([facility])[address] [place] [address] Calcium [Mass/Vol] 8.1 mg/dL Low 8.8-10.0 [facility] Comment on above: Performed By: #### L [id number] ####Crabber: VELMA VALADEZ ([phone])[facility] ([facility])[address] [place] [address] Chloride [Moles/Vol] 108 mmol/L High 98-107 [facility] Comment on above: Performed By: #### L [id number] ####Crabber: VELMA VALADEZ ([phone])[facility] ([facility])[address] [place] [address] CO2 [Moles/Vol] 21 mmol/L Low 23-31 [facility] Comment on above: Performed By: #### L [id number] ####Crabber: VELMA VALADEZ ([phone])[facility] ([facility])[address] [place] [address] Creatinine [Mass/Vol] 0.89 mg/dL Normal 0.57-1.11 [facility] Comment on above: Performed By: #### L [id number] ####Crabber: VELMA VALADEZ ([phone])[facility] ([facility])[address] [place] [address] GLOMERULAR FILTRATION RATE ML/MIN/1.73 SQ M.PREDICTED 64.0 mL/min/1.73m*2 Normal >60.0 [facility] Comment on above: Result Comment: Calc ulation based on the Chronic Kidney Disease Epidemiology Collaboration (CKD-EPI) equation refit without adjustment for race Performed By: #### L [id number] ####Crabber: VELMA VALADEZ ([phone])[facility] ([facility])[address] [place] [address] Glucose [Mass/Vol] 85 mg/dL Normal 82-115 [facility] Comment on above: Performed By: #### L [id number] ####Crabber: VELMA VALADEZ ([phone])[facility])[address] [place] [address] Potassium [Moles/Vol] 3.8 mmol/L Normal 3.5-5.1 [facility] Comment on above: Result Comment: [facility] potassium values may be up to 0.5 mmol/L lower than serum values. Performed By: #### L [id number] ####Crabber: VELMA VALADEZ ([phone])[facility])[address] [place] [address] Protein [Mass/Vol] 5.2 g/dL Low 6.4-8.3 [facility] Comment on above: Performed By: #### L [id number] ####Crabber: VELMA VALADEZ ([id number])[facility] ([facility])[address] [place] [address] Sodium [Moles/Vol] 134 mmol/L Low 136-145 [facility] Comment on above: Performed By: #### L [id number] ####Crabber: VELMA VALADEZ ([phone])[facility])[address] [place] [address] Urea nitrogen [Mass/Vol] 13 mg/dL Normal 9-23 [facility] Comment on above: Performed By: #### L [id number] ####Crabber: VELMA VALADEZ ([phone])[facility])[address] [place] [address] Comprehensive metabolic 1998 panelon 08-05-2024 Albumin [Mass/Vol] 2.3 g/dL Low 3.4 - 4.8 g/dL [facility] ALP [Catalytic activity/Vol] 74 U/L 40 - 150 U/L [facility] ALT [Catalytic activity/Vol] 27 U/L NINF - 30 U/L [facility] Anion gap [Moles/Vol] 5 mmol/L 3 - 13 mmol/L [facility] AST [Catalytic activity/Vol] 24 U/L NINF - 34 U/L [facility] Bilirubin [Mass/Vol] 0.6 mg/dL NINF - 1.2 mg/dL [facility] Calcium [Mass/Vol] 8.1 mg/dL Low 8.8 - 10. 0 mg/dL [facility] Chloride [Moles/Vol] 108 mmol/L High 98 - 10 7 mmol/L [facility] CO2 [Moles/Vol] 21 mmol/L Low 23 - 31 mmol/L [facility] Creatinine [Mass/Vol] 0.89 mg/dL 0.57 - 1.11 mg/dL [facility] GFR/1.73 sq M.predicted (S/P/Bld) [Vol rate/Area] 64 mL/min - PINF [facility] Comment on above: Calculation based on the Chronic Kidney Disease Epidemiology Collaboration (CKD-EPI) equation refit without adjustment for race Glucose [Mass/Vol] 85 mg/dL 82 - 115 mg/dL [facility] Interpretation and review of laboratory results Abnormal [facility] Potassium [Moles/Vol] 3.8 mmol/L 3.5 - 5.1 mmol/L [facility] Comment on above: Plasma potassium chris ues may be up to 0.5 mmol/L lower than serum values. Protein [Mass/Vol] 5.2 g/dL Low 6.4 - 8.3 g/dL [facility] Sodium [Moles/Vol] 134 mmol/L Low 136 - 145 mmol/L [facility] Urea nitrogen [Mass/Vol] 13 mg/dL 9 - 23 mg/dL [facility] Progress Noteon 08-05-2024 Progress Note Normal [facility] Progress Note Normal [facility] 30on 08-04-2024 30 Normal [facility] 30 Normal [facility] CBC W Auto Differential pane l (Bld)Ordered By: Devika Eisenberg on 08-04-2024 Basophils (Bld) [#/Vol] 0 10*3/uL 0.0 - 0.2 10*3/uL [facility] Basophils/100 WBC (Bld) 0.2 % 0.0 - 2.0 % [facility] Eosinophils (Bld) [#/Vol] 0.1 10*3/uL 0.0 - 0.5 10*3/uL [facility] Eosinophils/100 WBC (Bld) 1.4 % 0.0 - 6.0 % [facility] [employer] Erythrocyte distribution width (RBC) [Ratio] 19.3 % High 11.5 - 15.0 % [facility] Hematocrit (Bld) [Volume fraction] 33 % Low 35.0 - 47.0 % [facility] Hemoglobin (Bld) [Mass/Vol] 10 g/dL Low 11.7 - 16.0 g/dL [facility] [employer] Immature granulocytes (Bld) [#/Vol] 0 10*3/uL NINF - 0.1 10*3/uL [facility] Immature granulocytes/100 WBC (Bld) 0.5 % 0.0 - 2.0 % [facility] Interpretation and review of laboratory results Abnormal [facility] Lymphocytes (Bld) [#/Vol] 1 10*3/uL 1.0 - 4.3 10*3/uL [facility] Lymphocytes/100 WBC (Bld) 17.7 % 15.0 - 45.0 % [facility] MCH (RBC) [Entitic mass] 25.8 pg Low 26.0 - 34.0 pg [facility] MCHC (RBC) [Mass/Vol] 30.3 % Low 30.5 - 36.0 % [facility] MCV (RBC) [Entitic vol] 85.1 fL 77.0 - 99.0 fL [facility] Monocytes (Bld) [#/Vol] 0.5 10*3/uL 0.0 - 0.9 10*3/uL [facility] Monocytes/100 WBC (Bld) 9.5 % 5.0 - 13.0 % [facility] Neutrophils (Bld) [#/Vol] 3.9 10*3/uL 1.8 - 7.5 10*3/uL [facility] Neutrophils/100 WBC (Bld) 70.7 % 38.0 - 82.0 % [facility] Nucleated RBC/100 WBC (Bld) [Ratio] 0 % [facility] Platelet mean volume (Bld) [Entitic vol] 9.8 fL 9.0 - 12.7 fL [facility] Platelets (Bld) [#/Vol] 280 10*3/uL 140 - 440 10*3/uL [facility] RBC (Bld) [#/Vol] 3.88 10*6/uL 3.80 - 5.2 0 10*6/uL [facility] WBC (Bld) [#/Vol] 5.6 10*3/uL 3.6 - 10.7 10*3/uL [facility] CBC WITH AUTO DIFFERENTIALon 08-04-2024 Basophils (Bld) [#/Vol] 0.0 10*3/uL Normal 0.0-0.2 [facility] Comment on above: Performed By: #### L [id number] ####Crabber: VELMA VALADEZ ([phone])[facility] ([facility])[address] [place] [address] Basophils/100 WBC (Bld) 0.2 % Normal 0.0-2.0 [facility] Comment on above: Performed By: #### L [id number] ####Crabber: VELMA VALADEZ ([phone])[facility])[address] [place] [address] Eosinophils (Bld) [#/Vol] 0.1 10*3/uL Normal 0.0-0.5 [facility] Comment on above: Performed By: #### L [id number] ####Crabber: VELMA VALADEZ ([phone])[facility])[address] [place] [address] Eosinophils/100 WBC (Bld) 1.4 % Normal 0.0-6.0 [facility] Comment on above: Performed By: #### L [id number] ####Crabber: VELMA VALADEZ ([phone])[facility])[address] [place] [address] Erythrocyte distribution width (RBC) [Ratio] 19.3 % High 11.5-15.0 [facility] Comment on above: Performed By: #### L [id number] ####Crabber: VELMA VALADEZ ([phone])[facility])[address] [place] [address] Hematocrit (Bld) [Volume fraction] 33.0 % Low 35.0-47.0 [facility] Comment on above: Performed By: #### L [id number] ####Crabber: VELMA VALADEZ ([phone])[facility])[address] [place] [address] Hemoglobin (Bld) [Mass/Vol] 10.0 g/dL Low 11.7-16.0 [facility] Comment on above: Performed By: #### L [id number] ####Crabber: VELMA VALADEZ ([phone])[facility])[address] [place] [address] IMMATURE GRANS % 0.5 % Normal 0.0-2.0 [facility] Comment on above: Performed By: #### L [id number] ####Crabber: VELMA VALADEZ ([phone])[facility])[address] [place] [address] IMMATURE GRANS ABSOLUTE 0.0 10*3/uL Normal <0.1 [facility] Comment on above: Performed By: #### L [id number] ####Crabber: VELMA VALADEZ ([phone])[facility])[address] [place] [address] Lymphocytes (Bld) [#/Vol] 1.0 10*3/uL Normal 1.0-4.3 [facility] Comment on above: Performed By: #### L [id number] ####Crabber: VELMA VALADEZ ([phone])[facility])[address] [place] [address] Lymphocytes/100 WBC (Bld) 17.7 % Normal 15.0-45.0 [facility] Comment on above: Performed By: #### L [id number] ####Crabber: VELMA VALADEZ ([id number])[facility])[address] [place] [address] MCH (RBC) [Entitic mass] 25.8 pg Low 26.0-34.0 [facility] Comment on above: Performed By: #### L [id number] ####Crabber: VELMA [id number])[facility] ([facility])[address] [place] [address] MCHC 30.3 % Low 30.5-36.0 [facility] Comment on above: Performed By: #### L [id number] ####Crabber: VELMA VALADEZ ([phone])[facility] ([facility])[address] [place] [address] MCV (RBC) [Entitic vol] 85.1 fL Normal 77.0-99.0 [facility] Comment on above: Performed By: #### L [id number] ####Crabber: VELMA VALADEZ ([phone])[facility] ([facility])[address] [place] [address] Monocytes (Bld) [#/Vol] 0.5 10*3/uL Normal 0.0-0.9 [facility] Comment on above: Performed By: #### L [id number] ####Crabber: VELMA VALADEZ ([phone])[facility] ([facility])[address] [place] [address] Monocytes/100 WBC (Bld) 9.5 % Normal 5.0-13.0 S [facility] Comment on above: Performed By: #### L [id number] ####Crabber: VELMA VALADEZ ([phone])[facility] ([facility])[address] [place] [address] NEUTROPHILS ABSOLUTE 3.9 10*3/uL Normal 1.8-7.5 [facility] Comment on above: Performed By: #### L [id number] ####Crabber: VELMA VALADEZ ([phone])[facility] ([facility])[address] [place] [address] Neutrophils/100 WBC (Bld) 70.7 % Normal 38.0-82.0 [facility] Comment on above: Performed By: #### L [id number] ####Crabber: VELMA VALADEZ ([phone])[facility] ([facility])[address] [place] [address] NRBC 0.0 /100 WBCs Normal 0.0-2.0 [facility] Comment on above: Performed By: #### L [id number] ####Crabber: VELMA VALADEZ ([phone])[facility])[address] [place] [address] Platelet mean volume (Bld) [Entitic vol] 9.8 fL Normal 9.0-12.7 [facility] Comment on above: Performed By: #### L [id number] ####Crabber: VELMA VALADEZ ([phone])[facility] ([facility])[address] [place] [address] Platelets (Bld) [#/Vol] 280 10*3/uL Normal 140-440 [facility] Comment on above: Performed By: #### L [id number] ####Crabber: VELMA VALADEZ ([phone])[facility])[address] [place] [address] RBC (Bld) [#/Vol] 3.88 10*6/uL Normal 3.80-5.20 [facility] Comment on above: Performed By: #### L [id number] ####Crabber: VELMA VALADEZ ([phone])[facility])[address] [place] [address] WBC (Bld) [#/Vol] 5.6 10*3/uL Normal 3.6-10.7 [facility] Comment on above: Performed By: #### L [id number] ####Crabber: VELMA VALADEZ ([phone])[facility] ([facility])[address] [place] [address] COMPREHENSIVE METABOLIC PANE Gilberto 08-04-2024 Albumin [Mass/Vol] 2.3 g/dL Low 3.4-4.8 [facility] Comment on above: Performed By: #### L [id number] ####Crabber: VELMA VALADEZ ([phone])[facility])[address] [place] [address] ALP [Catalytic activity/Vol] 68 U/L Normal 40-150 [facility] Comment on above: Performed By: #### L [id number] ####Crabber: VELMA VALADEZ ([phone])[facility] ([facility])[address] [place] [address] ALT [Catalytic activity/Vol] 26 U/L Normal <30 [facility] Comment on above: Performed By: #### L [id number] ####Crabber: VELMA VALADEZ ([phone])[facility] [facility] ([facility])[address] [place] [address] Anion gap [Moles/Vol] 6 mmol/L Normal 3-13 [facility] Comment on above: Performed By: #### L [id number] ####Crabber: VELMA VALADEZ ([phone])[facility])[address] [place] [address] AST [Catalytic activity/Vol] 25 U/L Normal <34 [facility] Comment on above: Performed By: #### L AB17 ####Crabber: VELMA VALADEZ ([phone])[facility] ([facility])[address] [place] [address] Bilirubin [Mass/Vol] 0.5 mg/dL Normal <1.2 [facility] Comment on above: Performed By: #### L AB17 ####Crabber: VELMA VALADEZ ([phone])[facility] ([facility])[address] [place] [address] Calcium [Mass/Vol] 8.2 mg/dL Low 8.8-10.0 [facility] Comment on above: Performed By: #### L AB17 ####Crabber: VELMA VALADEZ ([phone])[facility] ([facility])[address] [place] [address] [place] Chloride [Moles/Vol] 112 mmol/L High 98-107 [facility] Comment on above: Performed By: #### L AB17 ####Crabber: VELMA VALADEZ ([phone])[facility] ([facility])[address] [place] [address] [place] CO2 [Moles/Vol] 21 mmol/L Low 23-31 [facility] Comment on above: Performed By: #### L AB17 ####Crabber: VLEMA VALADEZ ([phone])[facility])[address] [place] [address] Creatinine [Mass/Vol] 1.13 mg/dL High 0.57-1.11 [facility] Comment on above: Performed By: #### L AB17 ####Crabber: VELMA VALADEZ ([phone])[facility])[address] [place] [address] GLOMERULAR FILTRATION RATE ML/MIN/1.73 SQ M.PREDICTED 48.1 mL/min/1.73m*2 Low >60.0 [facility] Comment on above: Result Comment: Calc ulation based on the Chronic Kidney Disease Epidemiology Collaboration (CKD-EPI) equation refit without adjustment for race Performed By: #### L AB17 ####Crabber: VELMA VALADEZ ([phone])[facility] ([facility])[address] [place] [address] Glucose [Mass/Vol] 153 mg/dL High 82-115 [facility] Comment on above: Performed By: #### L AB17 ####Crabber: VELMA VALADEZ ([phone])[facility])[address] [place] [address] Potassium [Moles/Vol] 3.9 mmol/L Normal 3.5-5.1 [facility] Comment on above: Result Comment: [facility] potassium values may be up to 0.5 mmol/L lower than serum values. Performed By: #### L AB17 ####Crabber: VELMA VALADEZ ([phone])[facility] ([facility])[address] [place] [address] Protein [Mass/Vol] 5.2 g/dL Low 6.4-8.3 [facility] Comment on above: Performed By: #### L AB17 ####Crabber: VELMA VALADEZ ([phone])[facility] ([facility])[address] [place] [address] Sodium [Moles/Vol] 139 mmol/L Normal 136-145 [facility] Comment on above: Performed By: #### L AB17 ####Crabber: VELMA VALADEZ ([phone])[facility] ([facility] [place] [address] Urea nitrogen [Mass/Vol] 26 mg/dL High 9-23 [facility] Comment on above: Performed By: #### L AB17 ####Crabber: VELMA VALADEZ ([phone])[facility] ([facility])[address] [place] [address] Comprehensive metabolic 1998 panelon 08-04-2024 Albumin [Mass/Vol] 2.3 g/dL Low 3.4 - 4.8 g/dL [facility] ALP [Catalytic activity/Vol] 68 U/L 40 - 150 U/L [facility] ALT [Catalytic activity/Vol] 26 U/L NINF - 30 U/L [facility] Anion gap [Moles/Vol] 6 mmol/L 3 - 13 mmol/L [facility] AST [Catalytic activity/Vol] 25 U/L NINF - 34 U/L [facility] Bilirubin [Mass/Vol] 0.5 mg/dL NINF - 1.2 mg/dL [facility] Calcium [Mass/Vol] 8.2 mg/dL Low 8.8 - 10. 0 mg/dL [facility] Chloride [Moles/Vol] 112 mmol/L High 98 - 10 7 mmol/L [facility] CO2 [Moles/Vol] 21 mmol/L Low 23 - 31 mmol/L [facility] Creatinine [Mass/Vol] 1.13 mg/dL High 0.57 - 1.11 mg/dL [facility] GFR/1.73 sq M.predicted (S/P/Bld) [Vol rate/Area] 48.1 mL/min Low - PINF [facility] Comment on above: Calculation based on the Chronic Kidney Disease Epidemiology Collaboration (CKD-EPI) equation refit without adjustment for race Glucose [Mass/Vol] 153 mg/dL High 82 - 115 mg/dL [facility] Interpretation and review of laboratory results Abnormal [facility] Potassium [Moles/Vol] 3.9 mmol/L 3.5 - 5.1 mmol/L [facility] Comment on above: Plasma potassium chris ues may be up to 0.5 mmol/L lower than serum values. Protein [Mass/Vol] 5.2 g/dL Low 6.4 - 8.3 g/dL [facility] Sodium [Moles/Vol] 139 mmol/L 136 - 145 mmol/L [facility] Urea nitrogen [Mass/Vol] 26 mg/dL High 9 - 23 mg/dL [facility] Nursing Noteon 08-04-2024 Nursing Note Bedside swallow completed. Pt passed and tolerated well tolerated well. Normal [facility] Progress Noteon 08-04-2024 Progress Note Normal [facility] 30on 08-03-2024 30 Normal [facility] 30 Normal [facility] 30 Normal [facility] [id number] 08-03-2024 [id number] Normal [facility] BASIC METABOLIC PANELon 07-18 Anion gap [Moles/Vol] 6 mmol/L Normal 3-13 [facility] Comment on above: Performed By: #### L AB15 ####Crabber: VELMA VALADEZ ([phone])[facility] ([facility])[address] [place] [address] Calcium [Mass/Vol] 8.5 mg/dL Low 8.8-10.0 [facility] Comment on above: Performed By: #### L AB15 ####Crabber: VELMA VALADEZ ([phone])[facility] ([facility])[address] [place] [address] [place] Chloride [Moles/Vol] 105 mmol/L Normal 98-107 [facility] Comment on above: Performed By: #### L AB15 ####Crabber: VELMA VALADEZ ([phone])[facility] ([facility])[address] [place] [address] [place] CO2 [Moles/Vol] 27 mmol/L Normal 23-31 [facility] Comment on above: Performed By: #### L AB15 ####Crabber: VELMA VALADEZ ([phone])[facility] ([address] Creatinine [Mass/Vol] 1.18 mg/dL High 0.57-1.11 [facility] Comment on above: Performed By: #### L AB15 ####Crabber: VELMA VALADEZ ([phone])[facility])[address] [place] [address] GLOMERULAR FILTRATION RATE ML/MIN/1.73 SQ M.PREDICTED 45.6 mL/min/1.73m*2 Low >60.0 [facility] Comment on above: Result Comment: Calc ulation based on the Chronic Kidney Disease Epidemiology Collaboration (CKD-EPI) equation refit without adjustment for race Performed By: #### L AB15 ####Crabber: VELMA VALADEZ ([phone])[address] Glucose [Mass/Vol] 100 mg/dL Normal 82-115 [facility] Comment on above: Performed By: #### L AB15 ####Crabber: VELMA VALADEZ ([phone])[address] Potassium [Moles/Vol] 4.7 mmol/L Normal 3.5-5.1 [facility] Comment on above: Result Comment: [facility] potassium values may be up to 0.5 mmol/L lower than serum values. Performed By: #### L AB15 ####Crabber: VELMA VALADEZ ([phone])[facility])[address] [place] [address] Sodium [Moles/Vol] 138 mmol/L Normal 136-145 [facility] Comment on above: Performed By: #### L AB15 ####Crabber: VELMA [id number])[address] Urea nitrogen [Mass/Vol] 33 mg/dL High 9-23 [facility] Comment on above: Performed By: #### L AB15 ####Crabber: VELMA [id number])[facility] [place] [address] Basic metabolic 1998 panelOr dered By: Juni Millard on 08-03-2024 Anion gap [Moles/Vol] 6 mmol/L 3 - 13 mmol/L [facility] Calcium [Mass/Vol] 8.5 mg/dL Low 8.8 - 10. 0 mg/dL [facility] Chloride [Moles/Vol] 105 mmol/L 98 - 10 7 mmol/L [facility] CO2 [Moles/Vol] 27 mmol/L 23 - 31 mmol/L [facility] Creatinine [Mass/Vol] 1.18 mg/dL High 0.57 - 1.11 mg/dL [facility] GFR/1.73 sq M.predicted (S/P/Bld) [Vol rate/Area] 45.6 mL/min Low - PINF [facility] Comment on above: Calculation based on the Chronic Kidney Disease Epidemiology Collaboration (CKD-EPI) equation refit without adjustment for race Glucose [Mass/Vol] 100 mg/dL 82 - 115 mg/dL [facility] Interpretation and review of laboratory results Abnormal [facility] Potassium [Moles/Vol] 4.7 mmol/L 3.5 - 5.1 mmol/L [facility] Comment on above: Plasma potassium chris ues may be up to 0.5 mmol/L lower than serum values. Sodium [Moles/Vol] 138 mmol/L 136 - 145 mmol/L [facility] Urea nitrogen [Mass/Vol] 33 mg/dL High 9 - 23 mg/dL [facility] CBC W Auto Differential pane l (Bld)Ordered By: Christin Mayes on 08-03-2024 Erythrocyte distribution width (RBC) [Ratio] 19.4 % High 11.5 - 15.0 % [facility] Hematocrit (Bld) [Volume fraction] 38.7 % 35.0 - 47.0 % [facility] Hemoglobin (Bld) [Mass/Vol] 12.1 g/dL 11.7 - 16.0 g/dL [facility] MCH (RBC) [Entitic mass] 26 pg 26.0 - 34.0 pg [facility] MCHC (RBC) [Mass/Vol] 31.3 % 30.5 - 36.0 % [facility] MCV (RBC) [Entitic vol] 83.2 fL 77.0 - 99.0 fL [facility] Nucleated RBC/100 WBC (Bld) [Ratio] 0 % [facility] Platelet mean volume (Bld) [Entitic vol] 9.8 fL 9.0 - 12.7 fL [facility] Comment on above: MPV is a calculated measurement using platelet volume ratio Platelets (Bld) [#/Vol] 303 10*3/uL 140 - 440 10*3/uL [facility] RBC (Bld) [#/Vol] 4.65 10*6/uL 3.80 - 5.2 0 10*6/uL [facility] WBC (Bld) [#/Vol] 9.1 10*3/uL 3.6 - 10.7 10*3/uL [facility] CBC WITH AUTO DIFFERENTIALon 08-03-2024 Erythrocyte distribution width (RBC) [Ratio] 19.4 % High 11.5-15.0 [facility] Comment on above: Performed By: #### [place] [id number], [id number] ####Crabber: VELMA VALADEZ ([phone])[facility] ROSANGELA [facility] ([facility])[address] [place] [address] Hematocrit (Bld) [Volume fraction] 38.7 % Normal 35.0-47.0 [facility] Comment on above: Performed By: #### [place] [id number], [id number] ####Crabber: VELMA VALADEZ ([phone])[facility] ROSANGELA [employer] ([facility])[address] [place] [address] Hemoglobin (Bld) [Mass/Vol] 12.1 g/dL Normal 11.7-16.0 [facility] Comment on above: Performed By: #### L [id number], [id number] ####Crabber: VELMA VALADEZ ([phone])[facility] ROSANGELA [employer] ([facility])[address] [place] [address] MCH (RBC) [Entitic mass] 26.0 pg Normal 26.0-34.0 [facility] Comment on above: Performed By: #### L [id number], [id number] ####Crabber: VELMA VALADEZ ([phone])[facility] HOSPITAL[facility] ADAMES RITTMAN ([facility])[address] MCHC 31.3 % Normal 30.5-36.0 [facility] Comment on above: Performed By: #### L [id number], [id number] ####Crabber: VELMA VALADEZ ([phone])IN[facility] ([facility])[address] [place] [address] MCV (RBC) [Entitic vol] 83.2 fL Normal 77.0-99.0 [facility] Comment on above: Performed By: #### L [id number], [id number] ####Crabber: VELMA VALADEZ ([phone])[facility] ([facility])[address] [place] [address] NRBC 0.0 /100 WBCs Normal 0.0-2.0 [facility] Comment on above: Performed By: #### L [id number], [id number] ####Crabber: VELMA VALADEZ ([phone])[facility]ITALSim[facility] ADAMES RITTM[facility] ([facility])[address] [place] [address] Platelet mean volume (Bld) [Entitic vol] 9.8 fL Normal 9.0-12.7 [facility] Comment on above: Result Comment: MPV is a calculated measurement using platelet volume ratio Performed By: #### L [id number], [id number] ####Crabber: VELMA VALADEZ ([phone])[facility] HOSPITALSimran ADAMES RITTMAN ([facility])[address] [place] [address] [place] Platelets (Bld) [#/Vol] 303 10*3/uL Normal 140-440 [facility] Comment on above: Performed By: #### L [id number], [id number] ####Crabber: VELMA VALADEZ ([phone])[facility]OSPITALSim[facility] ADAMES RITTMAN ([facility])[address] [place] [address] [place] RBC (Bld) [#/Vol] 4.65 10*6/uL Normal 3.80-5.20 [facility] Comment on above: Performed By: #### L [id number], [id number] ####Crabber: VELMA VALADEZ ([phone])[facility] HOSPITALSimran VERDINTMAN (SWRL[facility])[address] WBC (Bld) [#/Vol] 9.1 10*3/uL Normal 3.6-10.7 [facility] Comment on above: Performed By: #### [place] [id number], [id number] ####Crabber: VELMA VALADEZ ([phone])[facility] HOSPITALSimran VERDINTMAN (SW[facility])[address] [place] [address] COMPREHENSIVE METABOLIC PANE Gilberto 08-03-2024 Albumin [Mass/Vol] 2.8 g/dL Low 3.4-4.8 [facility] Comment on above: Performed By: #### [place] AB17, [id number], LAB99 ####Crabber: VELMA VALADEZ ([phone])[facility] HOSPITALSimran VERDINTMAN ([facility])[address] [place] [address] ALP [Catalytic activity/Vol] 82 U/L Normal 40-150 [facility] Comment on above: Performed By: #### L AB17, [id number], LAB99 ####Crabber: VELMA VALADEZ ([phone])[facility] HOSPITALSimran ADAMES RITTMAN ([facility])[address] ALT [Catalytic activity/Vol] 26 U/L Normal <30 [facility] Comment on above: Performed By: #### L AB17, [id number], LAB99 ####Crabber: VELMA VALADEZ ([phone])[facility]OS[facility]ITALSimran ADAMES RITTMAN ([facility])[address] Anion gap [Moles/Vol] 9 mmol/L Normal 3-13 [facility] Comment on above: Performed By: #### L AB17, [id number], LAB99 ####Crabber: VELMA VALADEZ ([phone])[facility]ITALA ROSANGELA RITTMAN (SWRL[facility])[address] [place] [address] [place] AST [Catalytic activity/Vol] 36 U/L High <34 [facility] Comment on above: Result Comment: TCSi gnificant interference from hemolysis. Result integrity compromised. Interpret with caution. Performed By: #### [place] AB17, [id number], LAB99 ####Crabber: VELMA VALADEZ ([phone])[facility]ITALA ROSANGELA RITTMAN ([facility])[address] Bilirubin [Mass/Vol] 0.7 mg/dL Normal <1.2 [facility] Comment on above: Performed By: #### [place] REIS17, [id number], LAB99 ####Crabber: VELMA VALADEZ ([phone])[facility] HOSPITALSimran SANCHEZROSANGELA RITTMAN ([facility])[address] [place] [address] [place] Calcium [Mass/Vol] 9.0 mg/dL Normal 8.8-10.0 [facility] Comment on above: Performed By: #### Weston HOLLY, [id number], LAB99 ####Crabber: VELMA VALADEZ ([phone])[facility]ITALA ROSANGELA RITTMAN ([facility])[address] [place] [address] [place] Chloride [Moles/Vol] 109 mmol/L High 98-107 [facility] Comment on above: Performed By: #### [place] REIS17, [id number], LAB99 ####Crabber: VELMA VALADEZ ([phone])[facility]ITALA ROSANGELA RITTMAN (SW[facility])[address] [place] [address] [place] CO2 [Moles/Vol] 21 mmol/L Low 23-31 [facility] Comment on above: Performed By: #### L AB17, OZP009, LAB99 ####Crabber: VELMA VALADEZ ([phone])[facility]ITALA ROSANGELA RITTMAN ([facility])[address] [place] [address] [place] Creatinine [Mass/Vol] 1.30 mg/dL High 0.57-1.11 [facility] Comment on above: Performed By: #### Weston HOLLY, [id number], LAB99 ####Crabber: VELMA VALADEZ ([phone])[facility]ITALSimran VERDINTMAN ([facility])[address] [place] [address] GLOMERULAR FILTRATION RATE ML/MIN/1.73 SQ M.PREDICTED 40.6 mL/min/1.73m*2 Low >60.0 [facility] Comment on above: Result Comment: Calc ulation based on the Chronic Kidney Disease Epidemiology Collaboration (CKD-EPI) equation refit without adjustment for race Performed By: #### Weston HOLLY, [id number], LAB99 ####Crabber: VELMA VALADEZ ([phone])[facility]OSPITALSimran VERDINTMAN ([facility])[address] [place] [address] Glucose [Mass/Vol] 103 mg/dL Normal 82-115 [facility] Comment on above: Performed By: #### Weston HOLLY, [id number], LAB99 ####Crabber: VELMA VALADEZ ([phone])[facility]ITALSimran ADAMES RITTMAN ([facility])[address] [place] [address] Potassium [Moles/Vol] 5.9 mmol/L High 3.5-5.1 [facility] Comment on above: Result Comment: TCSi gnificant interference from hemolysis. Result integrity compromised. Interpret with caution. Performed By: #### Weston HOLLY, [id number], LAB99 ####Crabber: VELMA VALADEZ ([phone])[facility]OSPITALSimran VERDINTMAN ([facility])[address] [place] [address] Protein [Mass/Vol] 6.7 g/dL Normal 6.4-8.3 [facility] Comment on above: Result Comment: TCPo tential interference from hemolysis Performed By: #### [place] REIS17, [id number], LAB99 ####Crabber: VELMA VALADEZ ([phone])[facility]OSPITALSim[facility] ADAMES RITTMAN ([facility])[address] [place] [address] Sodium [Moles/Vol] 139 mmol/L Normal 136-145 [facility] Comment on above: Performed By: #### L AB17, [id number], LAB99 ####Crabber: VELMA VALADEZ ([phone])[facility] [employer] ([facility])[address] Urea nitrogen [Mass/Vol] 34 mg/dL High 9-23 [facility] Comment on above: Performed By: #### L AB17, [id number], LAB99 ####Crabber: VELMA VALADEZ ([phone])[facility] RIT[employer]AN (SW[facility])[address] ABDOMEN PELVIS WO IV CONT RASTon 08-03-2024 CT ABDOMEN PELVIS WO IV CONTRAST Normal [facility] CT Abdomen and Pelvis WO con traston 08-03-2024 1. Extensive colonic diverticulosis without evidence of diverticulitis 2. Consolidation in the medial left lower lobe, possibly pneumonia 3. No bowel dilatation Report Dictated on Electronically Signed By: Ming Fry MD Electronically Signed Date/Time: 08/03/2024 4:05 AM [facility] Patient Name: [facility]EL CARVER RD : 1940 [id number] Exam Date/Time: 08/03/2024 03:05 Procedure: CT ABDOMEN [...] 08/03/2024 Patient Name: [facility]EL POP : 1940 [id number] Exam Date/Time: 08/03/2024 03:05 Procedure: CT ABDOMEN [...] Electronically Signed Date/Time: 08/03/2024 4:05 AM EST [facility] [employer] Radiology Study observation (narrative) [facility] alth CT Abdomen and Pelvis WO con trastOrdered By: Ming Fry on 08-03-2024 [facility] [employer] Work Phone: Comprehensive metabolic 1998 panelon 08-03-2024 Albumin [Mass/Vol] 2.8 g/dL Low 3.4 - 4.8 g/dL [facility] [employer] ALP [Catalytic activity/Vol] 82 U/L 40 - 150 U/L [facility] [employer] ALT [Catalytic activity/Vol] 26 U/L NINF - 30 U/L [facility] [employer] Anion gap [Moles/Vol] 9 mmol/L 3 - 13 mmol/L [facility] [employer] AST [Catalytic activity/Vol] 36 U/[facility]/L [facility] [employer] Comment on above: TC Significant interference from hemolysis. Result integrity compromised. Interpret with caution. Bilirubin [Mass/Vol] 0.7 mg/dL NINF - 1.2 mg/dL [facility] [employer] Calcium [Mass/Vol] 9 mg/dL 8.8 - 10. 0 mg/dL [facility] Chloride [Moles/Vol] 109 mmol/L High 98 - 10 7 mmol/L [facility] CO2 [Moles/Vol] 21 mmol/L Low 23 - 31 mmol/L [facility] Creatinine [Mass/Vol] 1.3 mg/dL High 0.57 - 1.11 mg/dL [facility] GFR/1.73 sq M.predicted (S/P/Bld) [Vol rate/Area] 40.6 mL/min Low - PINF [facility] Comment on above: Calculation based on the Chronic Kidney Disease Epidemiology Collaboration (CKD-EPI) equation refit without adjustment for race Glucose [Mass/Vol] 103 mg/dL 82 - 115 mg/dL [facility] Interpretation and review of laboratory results Abnormal [facility] Potassium [Moles/Vol] 5.9 mmol/L High 3.5 - 5.1 mmol/L [facility] Comment on above: TC Significant interference from hemolysis. Result integrity compromised. Interpret with caution. Protein [Mass/Vol] 6.7 g/dL 6.4 - 8.3 g/dL [facility] Comment on above: TC Potential interference from hemolysis Sodium [Moles/Vol] 139 mmol/L 136 - 145 mmol/L [facility] Urea nitrogen [Mass/Vol] 34 mg/dL High 9 - 23 mg/dL [facility] ED Nursing Noteon 08-03-2024 ED Nursing Note Pt placed in roundtrip Normal [facility] ED Nursing Note ED CT and ED xray notified that patient is ready Normal [facility] ED Provider Noteon ED Provider Note Normal [facility] GASTROINTESTINAL PCR PANELon 08-03-2024 GASTROINTESTINAL PCR PANEL Normal [facility] Comment on above: Performed By: #### L [id number] ####Crabber: VELMA VALADEZ ([phone])[facility] ([facility])[address] [place] [address] Gastrointestinal pathogens p masoud OXANA+probe (Stl)Ordered By: Maximus Dimas on 08-03-2024 Adenovirus F 40/41 Not detected Not Detected [facility] Astrovirus Not detected Not Detected [facility] Campylobacter Not detected Not Detected [facility] Cryptosporidium Not detected Not Detected [facility] Cyclospora cayetanensis Not detected Not Detected [facility] Entamoeba histolytica Not detected Not Detected [facility] Enterotoxigenic E coli (ETEC) Not detected Not Detected [facility] Giardia lamblia Not detected Not Detected [facility] Interpretation and review of laboratory results Abnormal [facility] Norovirus GI/GII Detected Abnormal Not Detected [facility] Plesiomonas shigelloides Not detected Not Detected [facility] Rotavirus A Not detected Not Detected [facility] Salmonella Not detected Not Detected [facility] Sapovirus Not detected Not Detected [facility] Shiga toxin-producing E coli (STEC) Not detected Not Detected [facility] Shigella/Enteroinvasive E coli (EIEC) Not detected Not Detected [facility] Vibrio cholerae Not detected Not Detected [facility] Vibrio species Not detected Not Detected [facility] Yersinia enterocolitica Not detected Not Detected [facility] A positive Norovirus result on the Film Array GI panel should be interpreted in the context of the patient's history and clinical picture. If results are not consistent, result should be confirmed with a Norovirus specific assay. Methodology: Multiplex PCR [facility] LACTIC ACID WITH REFLEXon Lactate [Moles/Vol] 1.9 mmol/L Normal 0.5-2.2 [facility] Comment on above: Performed By: #### L [id number] ####Crabber: VELMA VALADEZ ([phone])[facility] (SACLAB[address] LIPASEon 08-03-2024 Lipase [Catalytic activity/Vol] 8 U/L Normal <55 [facility] Comment on above: Performed By: #### L [id number], [id number], LAB99 ####Crabber: VELMA VALADEZ ([phone])[facility] (SWRLAB)[address] [place] [address] Laboratory - Chemistry and C hemistry - challengeon 08-03-2024 Lactate [Moles/Vol] 1.9 mmol/L 0.5 - 2. 2 mmol/L [facility] Anion gap (Bld) [Moles/Vol] 8 mmol/L 3.00 - 13.00 [facility] Calcium.ionized (Bld) [Moles/Vol] 4.7 mg/dl 4.30 - 5.20 mg/dl [facility] Chloride [Moles/Vol] 107 mmol/L 98 - 11 4 mmol/L [facility] CO2 [Moles/Vol] 23 mmol/L 21 - 29 mmol/L [facility] Creatinine [Mass/Vol] 1.3 mg/dL 0.6 - 1.3 mg/dL [facility] GFR/1.73 sq M.predicted CKD-EPI (S/P/Bld) [Vol rate/Area] 40.6 [facility] Comment on above: KDIGO guidelines pro [...] 118 mg/dL High 70 - 100 mg/dL [facility] Potassium [Moles/Vol] 4.3 mmol/L 3.4 - 5.1 mmol/L [facility] Sodium [Moles/Vol] 138 mmol/L 133 - 145 mmol/L [facility] Urea (Bld) [Mass/Vol] 33 mg/dL High 4 - 22 mg/dL [facility] Lipase [Catalytic activity/Vol] 8 U/L NINF - 55 U/L [facility] Magnesium [Mass/Vol] 1.9 mg/dL 1.6 - 2 .6 mg/dL [facility] Laboratory - Microbiology an d Antimicrobial susceptibilityon 08-03-2024 FLUAV RNA OXANA+probe Ql (Resp) Not detected Not Detected [facility] FLUBV RNA OXANA+probe Ql (Resp) Not detected Not Detected [facility] RSV RNA OXANA+probe Ql (Resp) Not detected Not Detected [facility] SARS-CoV-2 (COVID-19) RNA OXANA+probe Ql (Resp) Not detected Not Detected [facility] SARS-CoV-2 (COVID-19) RNA OXANA+probe Ql (Unsp spec) Methodology: real-time, RT-PCR The SARS-CoV-2, Flu A/B, and RSV Combo assay is intended for in vitro diagnostic use under the FDA Emergency Use Authorization (EUA). This test has not been FDA cleared or approved. In compliance with this authorization, please visit www.fda.gov/media/34996 5/download or www.fda.gov/media/32819 6/download to access the applicable information sheets. [facility] MAGNESIUMon 08-03-2024 Magnesium [Mass/Vol] 1.9 mg/dL Normal 1.6-2.6 [facility] Comment on above: Result Comment: BUBBA R COMMENTS:Higher values can be expected in females during menses. Performed By: #### L AB17, [id number], LAB99 ####Crabber: VELMA VALADEZ ([phone])[facility] [employer] (SWRLAB)[address] [place] [address] MANUAL DIFFERENTIALon 2024 BASOPHILS (10*3/UL) IN BLOOD BY MANUAL COUNT 0.0 10*3/uL Normal 0.0-0.2 [facility] Comment on above: Performed By: #### L [id number], [id number] ####Crabber: VELMA VALADEZ ([phone])[facility]ITAL[facility]ides[facility] (SWRL[facility])[address] [place] [address] [place] BASOPHILS TOTAL PER COUNTED LEUKOCYTES BY MANUAL COUNT 0 Normal [facility] Comment on above: Performed By: #### L [id number], [id number] ####Crabber: VELMA VALADEZ ([phone])[facility] [employer] (SWRLAB)[address] [place] [address] [place] BASOPHILS/100 LEUKOCYTES IN BLOOD BY MANUAL COUNT 0 % Normal 0-2 [facility] Comment on above: Performed By: #### L [id number], [id number] ####Crabber: VELMA VALADEZ ([phone])[facility] [place] (SWRLAB)[address] [place], [place] [address] [place] CELLS COUNTED TOTAL (#) IN BLOOD 100 Normal [facility] Comment on above: Performed By: #### L [id number], [id number] ####Crabber: VELMA VALADEZ ([phone])TI[facility] [place] [facility] (SWRLAB)[address] [place] [address] [place] DIFFERENTIAL METHOD Automated differenti al reported after manual slide review Normal [facility] Comment on above: Performed By: #### L [id number], [id number] ####Crabber: VELMA VALADEZ ([phone])[facility] [place] [facility] (SWRLAB)[address] [place] [address] [place] EOSINOPHILS (10*3/UL) IN BLOOD BY MANUAL COUNT 0.1 10*3/uL Normal 0.0-0.5 [facility] Comment on above: Performed By: #### Weston [id number], [id number] ####Crabber: VELMA VALADEZ ([phone])[facility] [place] (SWRL[facility])[address] [place] [address] [place] EOSINOPHILS TOTAL PER COUNTED LEUKOCYTES BY MANUAL COUNT 1 Normal 0-1 [facility] Comment on above: Performed By: #### Weston [id number], [id number] ####Crabber: VELMA VALADEZ ([phone])[facility] [place] [facility] (SWRLAB)[address] [place] [address] [place] EOSINOPHILS/100 LEUKOCYTES IN BLOOD BY MANUAL COUNT 1 % Normal 0-6 [facility] Comment on above: Performed By: #### L [id number], [id number] ####Crabber: VELMA VALADEZ ([phone])[facility] [place] (SWRL[facility])[address] [place] [address] [place] LEUKOCYTE MORPHOLOGY FINDING IN BLOOD Normal Normal [facility] Comment on above: Performed By: #### L [id number], [id number] ####Crabber: VELMA VALADEZ ([phone])[facility] [place] [facility] (SWRL[facility])[address] [place] [address] [place] LEUKOCYTES (10*3/UL) NUCLEATED ERYTHROCYTE ADJUST 9.1 10*3/uL Normal 3.6-10.7 [facility] Comment on above: Performed By: #### L [id number], [id number] ####Crabber: VELMA VALADEZ ([phone])[facility] [place] (SWRL[facility])[address] [place] [address] [place] LYMPHOCYTES (10*3/UL) IN BLOOD BY MANUAL COUNT 0.5 10*3/uL Low 1.0-4.3 [facility] Comment on above: Performed By: #### L [id number], [id number] ####Crabber: VELMA VALADEZ ([phone])[facility] [place] (SWRL[facility])[address] [place] [address] [place] LYMPHOCYTES TOTAL PER COUNTED LEUKOCYTES BY MANUAL COUNT 5 Normal [facility] Comment on above: Performed By: #### [place] [id number], [id number] ####Crabber: VELMA VALADEZ ([phone])[facility] [place] (SWRL[facility])[address] [place] [address] [place] LYMPHOCYTES/100 LEUKOCYTES IN BLOOD BY MANUAL COUNT 5 % Low 15-45 [facility] Comment on above: Performed By: #### L [id number], [id number] ####Crabber: VELMA VALADEZ ([phone])[facility] HOSPITALSimran SANCHEZROSANGELA [facility] ([facility])[address] [place] [address] [place] MONOCYTES (10*3/UL) IN BLOOD BY MANUAL COUNT 0.5 10*3/uL Normal 0.0-0.9 [facility] Comment on above: Performed By: #### L [id number], [id number] ####Crabber: VELMA VALADEZ ([phone])[facility] [place] (SWRLAB)[address] [place] [address] [place] MONOCYTES TOTAL PER COUNTED LEUKOCYTES BY MANUAL COUNT 6 Normal [facility] Comment on above: Performed By: #### L [id number], [id number] ####Crabber: VELMA VALADEZ ([phone])[facility] (SWRLAB)[address] [place] [address] [place] MONOCYTES/100 LEUKOCYTES IN BLOOD BY MANUAL COUNT 6 % Normal 5-13 [facility] Comment on above: Performed By: #### L [id number], [id number] ####Crabber: VELMA VALADEZ ([phone])TIFFANY[facility] [place] [facility] (SW[facility])[address] [place] [address] [place] NEUTROPHILS (SEGS+BANDS) (10*3/UL) BY MANUAL COUNT 7.9 10*3/uL High 1.8-7.0 [facility] Comment on above: Performed By: #### L [id number], [id number] ####Crabber: VELMA VALADEZ ([phone])[facility] HOSPITALSimran ADAMES [place] (SW[facility])[address] [place] [address] [place] NEUTROPHILS TOTAL PER COUNTED LEUKOCYTES BY MANUAL COUNT 87 Normal [facility] Comment on above: Performed By: #### L [id number], [id number] ####Crabber: VELMA VALADEZ ([phone])[facility] HOSPITALSimran SANCHEZROSANGELA [place] (SWRL[facility])[address] [place] [address] [place] PLATELET MORPHOLOGY IN BLOOD Normal Normal [facility] Comment on above: Performed By: #### L [id number], [id number] ####Crabber: VELMA VALADEZ ([phone])[facility]A [place] (SWRL[facility])[address] [place] [address] [place] RBC MORPHOLOGY IN BLOOD Normal Normal [facility] Comment on above: Performed By: #### L [id number], [id number] ####Crabber: VELMA VALADEZ ([phone])[facility] HOSPITALSimran SANCHEZROSANGELA [facility] (SWRL[facility])[address] [place] [address] [place] SEGEMENTED NEUTROPHILS/100 LEUKOCYTES BY MANUAL COUNT 87 % High 38-82 [facility] Comment on above: Performed By: #### L [id number], [id number] ####Crabber: VELMA VALADEZ ([phone])[facility] [place] (SWRL[facility])[address] [place] [address] [place] UNCLASSIFIED CELLS (10*3/UL) IN BLOOD BY MANUAL COUNT 0.1 10*3/uL Normal [facility] Comment on above: Performed By: #### L [id number], [id number] ####Crabber: VELMA VALADEZ ([phone])[facility] [place] (SWRLAB)[address] [place] [address] [place] UNCLASSIFIED CELLS/100 LEUKOCYTES IN BLOOD 1.00 % Normal [facility] Comment on above: Performed By: #### L [id number], [id number] ####Crabber: VELMA VALADEZ ([phone])[facility] [place] (SWRL[facility])[address] [place] [address] [place] Magnesium [Mass/Vol]on 08-03 Higher values can be expected in females during menses. [employer] Manual differential performe d Ql (Bld)on 08-03-2024 Basophils (Bld) [#/Vol] 0 10*3/uL 0.0 - 0.2 10*3/uL [employer] Basophils Manual 0 [facility] alth Basophils/100 WBC (Bld) 0 % 0 - 2 % S [facility] Cells Counted Total (Bld) [#] 100 {cells} [facility] [employer] Differential Method Automated differenti al reported after manual slide review [facility] [employer] Eosinophils (Bld) [#/Vol] 0.1 10*3/uL 0.0 - 0.5 10*3/uL [employer] Eosinophils Manual 1 0 - 1 [facility] [employer] Eosinophils/100 WBC (Bld) 1 % 0 - 6 % [facility] [employer] Leukocyte morphology finding Nom (Bld) Normal [facility] [employer] Lymphocytes (Bld) [#/Vol] 0.5 10*3/uL Low 1.0 - 4.3 10*3/uL [facility] [employer] Lymphocytes Manual 5 [facility] [employer] Lymphocytes/100 WBC (Bld) 5 % Low 15 - 45 % [facility] [employer] Monocytes (Bld) [#/Vol] 0.5 10*3/uL 0.0 - 0.9 10*3/uL [facility] Monocytes Manual 6 [facility] alth Monocytes/100 WBC (Bld) 6 % 5 - 13 % S [facility] Neutrophils (Bld) [#/Vol] 7.9 10*3/uL High 1.8 - 7.0 10*3/uL [facility] Neutrophils Manual 87 [facility] Platelet morphology finding Nom (Bld) Normal [facility] RBC morphology finding Nom (Bld) Normal [facility] Segmented neutrophils/100 WBC (Bld) 87 % High 38 - 82 % [facility] Unclassified Cells % 1 % [facility] Unclassified Cells, Abs. 0.1 10*3/uL [facility] WBC corrected for nucl RBC (Bld) [#/Vol] 9.1 10*3/uL 3.6 - 10.7 10*3/uL [facility] No Panel Informationon 08-03 Interpretation and review of laboratory results Normal [facility] Interpretation and review of laboratory results Abnormal [facility] Performed by: [facility], [address] [place] [address] CLIA ID: [id number] [facility] Interpretation and review of laboratory results Normal [facility] No Panel InformationOrdered By: Christin Mayes on 08-03-2024 Interpretation and review of laboratory results Abnormal [facility] SARS-COV-2, FLU A/B, AND RSV COMBOon 08-03-2024 SARS-CoV-2 (COVID-19) RNA OXANA+probe Ql (Unsp spec) Normal [facility] Comment on above: Performed By: #### L [id number] ####Crabber: VELMA VALADEZ ([phone])[facility] HOSPITALSimran BAUTISTA (SWRLAB)[address] [place] [address] SARS-CoV-2, Flu A/B, and RSV Comboon 08-03-2024 Interpretation and review of laboratory results Normal [facility] XR Chest Single viewon 08-03 No acute abnormality Report Dictated on Electronically Signed By: Ming Fry MD Electronically Signed Date/Time: 08/03/2024 3:33 AM [facility] Patient Name: MEL CARVER RD [...] within the right humerus. No acute fracture. [facility] Ming Fry MD - 08/03/2024 Patient [...] Date/Time: 08/03/2024 3:33 AM EST [facility] Radiology Study observation (narrative) [facility] alth XR Chest Single viewOrdered By: Ming Fry on 08-03-2024 [facility] Work Phone: ANES POSTPROC EVALon 025 ANES POSTPROC EVAL HNO ID: [id number] Author: ROBINSON BRUNNER MD Service: ? Author Type: Anesthesiologist Type: Anesthesia Postprocedure Evaluation Filed: 07/31/2024 12:48 Note Text: POST ANESTHESIA EVALUATION NOTE : 1940 Procedure Summary Date: 07/27/24 Room / Location: [address] Anesthesia Start: 1114 Anesthesia Stop: 1322 [...] with this procedure. Documented by Mikhail Nichols APRN.CENTRAL OFFICE REPAIRER SUPERVISOR 07/27/2024 1:22 PM EST SIGNATURE: Robinson Pizano MD PATIENT NAME: Mel Castillo DATE: July 31, 2024 TIME: 12:46 PM CSN: [id number] [facility] ANES PRE-OPon 07-27-2024 ANES PRE-OP HNO ID: [id number] Author: ROBINSON BRUNNER MD Service: ? Author Type: Anesthesiologist Type: Anesthesia Preprocedure Evaluation Filed: 07/27/2024 11:10 Note Text: ANESTHESIOLOGY DAY OF SURGERY NOTE : 1940 Procedure Information Date/Time: 07/27/24 1110 Procedures: VITRECTOMY 25G [facility] PARS PLANA APPROACH W/ REMOVAL OF PRERETINAL CELLULAR MEMBRANE (Right: Eye) RELEASE OF VITREOUS, CHOROIDAL FLUID, PARS PLANA APPROACH (Right: Eye) Location: [place] [address] / [facility] Surgeons: Savana Lopez MD Estimated [...] tiotropium 2.5 (more content not included)... Normal [facility] OPERATIVE NOon 07-27-2024 OPERATIVE NO HNO ID: [id number] Author: SAVANA LOPEZ MD Service: Ophthalmology Author Type: Physician Type: Operative Report Filed: 07/27/2024 13:20 Note Text: [place] [address] [place] [facility] OPERATIVE REPORT LOG ID: [id number] Surgery/Procedure Date: 07/27/2024 Incision/Procedure Start Time: 11:39 AM Incision Close/Procedure End Time: 1:07 PM NAME: Mel Serna [facility] #: [id number] SURGEON(S) AND CUSTOMER SERVICE ANALYST(S): Surgeons and Role: Panel 1: * Savana [...] was repaired by the use of max cigar packer and shader forceps and vitreous cutter. This was a [...] times thro (more content not included)... Normal [facility] BSCAN OD (RIGHT EYE)on 07-24 [facility] Right eye Photo documentatio non 07-24-2024 [facility] BSCAN OD (RIGHT EYE)on 07-23 Radiology Study observation (narrative) [facility] Right eye Photo documentatio non 07-23-2024 Radiology Study observation (narrative) [facility] CASE MANAGEMon 07-18-2024 CASE MANAGEM HNO ID: [id number] Author: DOMINIQUE RAMSAY LSW Service: ? Author Type: Comic Illustrator Type: Care Mgt Progress Note Filed: 07/18/2024 11:21 Note Text: CARE MANAGEMENT DISCHARGE NOTE SERVICE DATE: July 18, 2024 SERVICE TIME: 11:19 AM Admission Date: 07/07/2024 LOS: 11 days Discharge Arrangement Discharge Arrangement: Care Home Facility Services Arranged Medical Services: Other: See Comment (N/A) Caregiver Assessment Caregiver is ready, willing and able to meet the patient's needs as recommended by the inter-professional team: Yes Name of Caregiver: Rosangela Tomlin Transportation Arrangements Transportation Arrangements: Ambulance Transportation Agency and Phone #:: [facility] [phone] Date of Trip: 07/18/24 Time of Trip: 1100 Type of Service: BLS Non-emergency Handoff Communication: Handoff to: Primary Care Physician Primary Care Physician Name/Phone: Jared Evans Additional Information: Discharge Information Row Name Admission (Current) from 07/07/2024 in [facility] H060 Care Home Facility Agency [address] [address] Patient d/c ready to [facility] via [facility] with picker machine operator scheduled for 11am today by Stretcher. Patient aware of plan. Bedside RN aware of plan and provided number to call report for nurse report; call [phone] :) Cashier Associate can transfer you to the 2nd floor. . 7000 and DC instructions sent to [facility] via [employer] and are in DC packet. DC packet in chart to go with patient. SIGNATURE: SHAQUILLE Garay PATIENT NAME: Mel Castillo DATE: July 18, 2024 TIME: 11:19 AM Normal [facility] CBC panel Auto (Bld)on 07-18 Erythrocyte distribution width (RBC) [Ratio] 17.5 % High 11.5-15.0 [facility] Comment on above: Order Comment: Speci men Type: BLOOD SPECIMEN Ordering Facility: [facility] Address: [address] [place] [address] Performed By: #### 5 8410-2 #### [facility] CLIA [id number] [address] [place] [address] [place] Hematocrit (Bld) [Volume fraction] 33.8 % Low 36.0-46.0 [facility] Comment on above: Order Comment: Speci men Type: BLOOD SPECIMEN Ordering Facility: [facility] Address: [address] [place] [address] Performed By: #### 5 8410-2 #### [facility] CLIA [id number] [address] [place] [address] [place] Hemoglobin (Bld) [Mass/Vol] 10.5 g/dL Low 11.5-15.5 [facility] Comment on above: Order Comment: Speci men Type: BLOOD SPECIMEN Ordering Facility: [facility] Address: [address] [place] [address] Performed By: #### 5 8410-2 #### [facility] CLIA [id number] [address] [place] [address] [place] MCH (RBC) [Entitic mass] 26.0 pg Normal 26.0-34.0 [facility] Comment on above: Order Comment: Speci men Type: BLOOD SPECIMEN Ordering Facility: [facility] Address: [address] [place] [address] Performed By: #### 5 8410-2 #### [facility] CLIA [id number] [address] [place] [address] [place] MCHC (RBC) [Mass/Vol] 31.1 g/dL Normal 30.5-36.0 [facility] Comment on above: Order Comment: Speci men Type: BLOOD SPECIMEN Ordering Facility: [facility] Address: [address] [place] [address] Performed By: #### 5 8410-2 #### [facility] CLIA [id number] [address] [place] [address] [place] MCV (RBC) [Entitic vol] 83.7 fL Normal 80.0-100.0 [facility] Comment on above: Order Comment: Speci men Type: BLOOD SPECIMEN Ordering Facility: [facility] Address: [address] [place] [address] Performed By: #### 5 8410-2 #### [facility] CLIA [id number] [address] [place] [address] [place] Nucleated RBC (Bld) [#/Vol] 10*3/uL Normal <0.01 [facility] Comment on above: Order Comment: Speci men Type: BLOOD SPECIMEN Ordering Facility: [facility] Address: [address] [place] [address] Performed By: #### 5 8410-2 #### [facility] CLIA [id number] [address] [place] [address] [place] Platelet mean volume (Bld) [Entitic vol] 9.3 fL Normal 9.0-12.7 [facility] Comment on above: Order Comment: Speci men Type: BLOOD SPECIMEN Ordering Facility: [facility] Address: [address] [place] [address] Performed By: #### 5 8410-2 #### [facility] CLIA [id number] [address] [place] [address] [place] Platelets (Bld) [#/Vol] 386 10*3/uL Normal 150-400 [facility] Comment on above: Order Comment: Speci men Type: BLOOD SPECIMEN Ordering Facility: [facility] Address: [address] [place] [address] Performed By: #### 5 8410-2 #### [facility] CLIA [id number] [address] [place] [address] [place] RBC (Bld) [#/Vol] 4.04 10*6/uL Normal 3.90-5.20 [facility] Comment on above: Order Comment: Speci men Type: BLOOD SPECIMEN Ordering Facility: [facility] Address: [address] [place] [address] Performed By: #### 5 8410-2 #### [facility] CLIA [id number] [address] [place] [address] [place] WBC (Bld) [#/Vol] 10.81 10*3/uL Normal 3.70-11.00 [facility] Comment on above: Order Comment: Speci men Type: BLOOD SPECIMEN Ordering Facility: [facility] Address: [address] [place] [address] Performed By: #### 5 8410-2 #### [facility] CLIA [id number] [address] [place] [address] [place] CNDSon 07-18-2024 CNDS HNO ID: [id number] Author: BRIANA PRITCHARD MD Service: General Internal [...] May 2024 who presents to OSH from [facility] for further evaluation of R [...] hemorraghic cho (more content not included)... Normal [facility] Renal function 2000 panelon 07-18-2024 Albumin [Mass/Vol] 3.2 g/dL Low 3.9-4.9 [facility] Comment on above: Order Comment: Speci men Type: BLOOD SPECIMEN Ordering Facility: [facility] Address: [address] [place] [address] Performed By: #### 2 4362-6 #### [facility] CLIA [id number] [address] [place] [address] [place] Anion gap [Moles/Vol] 11 mmol/L Normal 8-15 [facility] Comment on above: Order Comment: Speci men Type: BLOOD SPECIMEN Ordering Facility: [facility] Address: [address] [place] [address] Performed By: #### 2 4362-6 #### [facility] CLIA [id number] [address] [place] [address] [place] Calcium [Mass/Vol] 9.3 mg/dL Normal 8.5-10.2 [facility] Comment on above: Order Comment: Speci men Type: BLOOD SPECIMEN Ordering Facility: [facility] Address: [address] [place] [address] Performed By: #### 2 4362-6 #### [facility] CLIA [id number] [address] [place] [address] [place] Chloride [Moles/Vol] 102 mmol/L Normal 98-107 [facility] Comment on above: Order Comment: Speci men Type: BLOOD SPECIMEN Ordering Facility: [facility] Address: [address] [place] [address] Performed By: #### 2 4362-6 #### [facility] CLIA [id number] [address] [place] [address] [place] CO2 [Moles/Vol] 25 mmol/L Normal 22-30 [facility] Comment on above: Order Comment: Speci men Type: BLOOD SPECIMEN Ordering Facility: [facility] Address: [address] [place] [address] Performed By: #### 2 4362-6 #### [facility] CLIA [id number] [address] [place] [address] [place] Creatinine [Mass/Vol] 0.90 mg/dL Normal 0.58-0.96 [facility] Comment on above: Order Comment: Speci men Type: BLOOD SPECIMEN Ordering Facility: [facility] Address: [address] [place] [address] Performed By: #### 2 4362-6 #### [facility] CLIA [id number] [address] [place] [address] [place] Creatinine and Glomerular filtration rate.predicted panel (S/P/Bld) 63 mL/min/1.73m??? Normal >=60 [facility] Comment on above: Order Comment: Speci men Type: BLOOD SPECIMEN Ordering Facility: [facility] Address: [address] [place] [address] Result Comment: Isa mated Glomerular Filtration Rate [...] GFR. Performed By: #### 2 4362-6 #### [facility] CLIA [id number] [address] [place] [address] [place] Glucose [Mass/Vol] 105 mg/dL High 74-99 [facility] Comment on above: Order Comment: Speci men Type: BLOOD SPECIMEN Ordering Facility: [facility] Address: [address] [place] [address] Result Comment: The [employer] Diabetes Association (ADA) provides guidance for cutoff [...] Standards of Medical Care in Diabetes 2016, [employer] Diabetes [employer]. Diabetes Care. 2016.39(Suppl 1). Performed By: #### 2 4362-6 #### [facility] CLIA [id number] [address] [place] [address] [place] Phosphate [Mass/Vol] 3.0 mg/dL Normal 2.7-4.8 [facility] Comment on above: Order Comment: Rhina mason Type: BLOOD SPECIMEN Ordering Facility: [facility] Address: [address] [place] [address] Performed By: #### 2 4362-6 #### [facility] CLIA [id number] [address] [place] [address] [place] Potassium [Moles/Vol] 4.5 mmol/L Normal 3.7-5.1 [facility] Comment on above: Order Comment: Rhina mason Type: BLOOD SPECIMEN Ordering Facility: [facility] Address: [address] [place] [address] Performed By: #### 2 4362-6 #### [facility] CLIA [id number] [address] [place] [address] [place] Sodium [Moles/Vol] 138 mmol/L Normal 136-144 [facility] Comment on above: Order Comment: Speci men Type: BLOOD SPECIMEN Ordering Facility: [facility] Address: [address] [place] [address] Performed By: #### 2 4362-6 #### [facility] CLIA [id number] [address] [place] [address] [place] Urea nitrogen [Mass/Vol] 17 mg/dL Normal 7-21 [facility] Comment on above: Order Comment: Speci men Type: BLOOD SPECIMEN Ordering Facility: [facility] Address: [address] [place] [address] Performed By: #### 2 4362-6 #### [facility] CLIA [id number] [address] [place] [address] [place] CASE MANAGEMon 07-17-2024 CASE MANAGEM HNO ID: [id number] Author: ?, ?, ? Service: ? Author Type: ? Type: Care Mgt Progress Note Filed: 07/17/2024 14:07 Note Text: CARE MANAGEMENT PROGRESS NOTE SERVICE DATE: 07/17/2024 SERVICE TIME: 2:07 PM LOS: 10 days Discharge packet completed and dropped off by distribution center assistant Tamiko Holley. Packet is missing AVS/DC forms, please reach out to field nurse case manager with any discharge related questions. SIGNATURE: Tamiko Holley PATIENT NAME: Mel Castillo DATE: July 17, 2024 TIME: 2:07 PM Normal [facility] CASE MANAGEM HNO ID: [id number] Author: DOMINIQUE RAMSAY LSW Service: ? Author Type: Comic Illustrator Type: Care Mgt Progress Note Filed: 07/17/2024 13:44 Note Text: CARE MANAGEMENT HOLIDAY PLANNING NOTE DISCHARGE OR POSSIBLE DISCHARGE Date/Time: 07/18 at 11am Disposition: Care Home Facility - Precert Obtained: Yes Facility Name: [facility] Facility Phone #: Transport: Mode of Transportation: Ambulance Transportation Agency and Phone #: [facility] [phone] . Date of Trip: 07/18/2024 at 11am Other Concerns: 11 am DC via [facility] trip# #[id number] to take Pt to [facility]. Pre-cert is approved, a bed is available, and Pt is medically ready. 7000 has been tasked. DC packet has been tasked. DNR form is on green chart. Weekend Easement Worker Pager #: Please see Treatment Team for Care Management Weekend/Holiday coverage. SIGNATURE: SHAQUILLE Garay PATIENT NAME: Mel Castillo DATE: July 17, 2024 TIME: 1:42 PM PAGER/CONTACT #: [facility] CASE MANAGEM HNO ID: [id number] Author: BASILIA CAPPS, ? Service: ? Author Type: ? Type: Care Mgt Progress Note Filed: 07/17/2024 13:14 Note Text: [facility] PRECERT NOTE [employer] MEDICARE PPO approved Care Home Facility for [facility] . Precert approved through 07/19/2024. For any additional questions regarding approvals, transport or care management needs, please contact the CM assigned to this patient in the Treatment Team. SIGNATURE: Basilia Capps DATE: July 17, 2024 TIME: 1:14 PM [facility] CASE MANAGEM HNO ID: [id number] Author: DOMINIQUE RAMSAY LSW Service: General Internal Medicine Author Type: Comic Illustrator Type: Care Mgt Progress Note Filed: 07/17/2024 11:29 Note Text: Attestation signed by Thomas Car DO at 07/17/2024 11:37 AM Thomas Car D.O. PGY-2 Internal Medicine Resident [facility] Click here to page July 17, [...] * Attending Physician: Briana Pritchard MD Normal [facility] CBC panel Auto (Bld)on 07-17 Erythrocyte distribution width (RBC) [Ratio] 17.2 % High 11.5-15.0 [facility] Comment on above: Order Comment: Rhina mason Type: BLOOD SPECIMEN Ordering Facility: [facility] [place] Address: [address] [place] [address] Performed By: #### 2 276-4 #### [facility] CLIA [id number] [address] [place] [address] [place] Hematocrit (Bld) [Volume fraction] 32.3 % Low 36.0-46.0 [facility] Comment on above: Order Comment: Rhina mason Type: BLOOD SPECIMEN Ordering Facility: [facility] [place] Address: [address] [place] [address] Performed By: #### 2 276-4 #### [facility] CLIA [id number] [address] [place] [address] [place] Hemoglobin (Bld) [Mass/Vol] 10.2 g/dL Low 11.5-15.5 [facility] Comment on above: Order Comment: Speci men Type: BLOOD SPECIMEN Ordering Facility: [facility] [place] Address: [address] [place] [address] Performed By: #### 2 276-4 #### [facility] CLIA [id number] [address] [place] [address] STATES [facility] MCH (RBC) [Entitic mass] 26.5 pg Normal 26.0-34.0 [facility] Comment on above: Order Comment: Speci men Type: BLOOD SPECIMEN Ordering Facility: [facility] [place] Address: [address] [place] [address] Performed By: #### 2 276-4 #### [facility] CLIA [id number] [address] [place] [address] [place] MCHC (RBC) [Mass/Vol] 31.6 g/dL Normal 30.5-36.0 [facility] Comment on above: Order Comment: Speci men Type: BLOOD SPECIMEN Ordering Facility: [facility] [place] Address: [address] [place] [address] Performed By: #### 2 276-4 #### [facility] CLIA [id number] [address] [place] [address] [place] MCV (RBC) [Entitic vol] 83.9 fL Normal 80.0-100.0 [facility] Comment on above: Order Comment: Speci men Type: BLOOD SPECIMEN Ordering Facility: [facility] [place] Address: [address] [place] [address] Performed By: #### 2 276-4 #### [facility] CLIA [id number] [address] [place] [address] [place] Nucleated RBC (Bld) [#/Vol] 10*3/uL Normal <0.01 [facility] Comment on above: Order Comment: Speci men Type: BLOOD SPECIMEN Ordering Facility: [facility] [place] Address: [address] [place] [address] Performed By: #### 2 276-4 #### [facility] CLIA [id number] [address] [place] [address] [place] Platelet mean volume (Bld) [Entitic vol] 9.7 fL Normal 9.0-12.7 [facility] Comment on above: Order Comment: Speci men Type: BLOOD SPECIMEN Ordering Facility: [facility] [place] Address: [address] [place] [address] Performed By: #### 2 276-4 #### [facility] CLIA [id number] [address] [place] [address] [place] Platelets (Bld) [#/Vol] 362 10*3/uL Normal 150-400 [facility] Comment on above: Order Comment: Speci men Type: BLOOD SPECIMEN Ordering Facility: [facility] [place] Address: [address] [place] [address] Performed By: #### 2 276-4 #### [facility] CLIA [id number] [address] [place] [address] [place] RBC (Bld) [#/Vol] 3.85 10*6/uL Low 3.90-5.20 [facility] Comment on above: Order Comment: Speci men Type: BLOOD SPECIMEN Ordering Facility: [facility] [place] Address: [address] [place] [address] Performed By: #### 2 276-4 #### [facility] CLIA [id number] [address] [place] [address] [place] WBC (Bld) [#/Vol] 9.41 10*3/uL Normal 3.70-11.00 [facility] Comment on above: Order Comment: Speci men Type: BLOOD SPECIMEN Ordering Facility: [facility] [place] Address: [address] [place] [address] Performed By: #### 2 276-4 #### [facility] CLIA [id number] [address] [place] [address] [place] Renal function 2000 panelon 07-17-2024 Albumin [Mass/Vol] 3.3 g/dL Low 3.9-4.9 [facility] Comment on above: Order Comment: Speci men Type: BLOOD SPECIMENOrdering Facility: [facility] Address: [address] [place] [id number] Performed By: #### 2 4362-6 ####[facility]CLIA [id number] [address] [address] [place] Anion gap [Moles/Vol] 10 mmol/L Normal 8-15 [facility] Comment on above: Order Comment: Speci men Type: BLOOD SPECIMENOrdering Facility: [facility] Address: [address] [place], [place] [address] Performed By: #### 2 4362-6 ####[facility]CLIA [id number] [place] [address] [place] Calcium [Mass/Vol] 9.0 mg/dL Normal 8.5-10.2 [facility] Comment on above: Order Comment: Speci men Type: BLOOD SPECIMENOrdering Facility: [facility] Address: [address] [place], [place] [address] Performed By: #### 2 4362-6 ####[facility] LABCLIA [id number] [place] [address] [place] Chloride [Moles/Vol] 101 mmol/L Normal 98-107 [facility] Comment on above: Order Comment: Speci men Type: BLOOD SPECIMENOrdering Facility: [facility] Address: [address] [place], [place] [address] Performed By: #### 2 4362-6 ####[facility]CLIA [id number] [place] [address] [place] CO2 [Moles/Vol] 25 mmol/L Normal 22-30 [facility] Comment on above: Order Comment: Speci men Type: BLOOD SPECIMENOrdering Facility: [facility] Address: [address] [place], [place] [address] Performed By: #### 2 4362-6 ####[facility] LABCLIA [id number] [place] [address] [place] Creatinine [Mass/Vol] 0.94 mg/dL Normal 0.58-0.96 [facility] Comment on above: Order Comment: Rhina mason Type: BLOOD SPECIMENOrdering Facility: [facility] Address: [address] [place] [address] Performed By: #### 2 4362-6 ####[facility] LABCLIA [id number] [address] [facility] Creatinine and Glomerular filtration rate.predicted panel (S/P/Bld) 60 mL/min/1.73m??? Normal >=60 [facility] Comment on above: Order Comment: Rhina mason Type: BLOOD SPECIMENOrdering Facility: [facility] Address: [address] [place] [address] Result Comment: Isa mated Glomerular Filtration Rate [...] actual GFR. Performed By: #### 2 4362-6 ####[facility] LABCLIA [id number] [place] [address] [place] Glucose [Mass/Vol] 112 mg/dL High 74-99 [facility] Comment on above: Order Comment: Rhina mason Type: BLOOD SPECIMENOrdering Facility: [facility] Address: [address] [place] [address] Result Comment: The [place] Diabetes Association (ADA) provides guidance for cutoff [...] Standards of Medical Care in Diabetes 2016, [place] Diabetes [employer]. Diabetes Care. 2016.39(Suppl 1). Performed By: #### 2 4362-6 ####[facility] LABCLIA [id number] [address] [address] [place] Phosphate [Mass/Vol] 2.2 mg/dL Low 2.7-4.8 [facility] Comment on above: Order Comment: Speci men Type: BLOOD SPECIMENOrdering Facility: [facility] Address: [address] [place] [address] Performed By: #### 2 4362-6 ####[facility] LABIA [id number] [place] [address] [place] Potassium [Moles/Vol] 4.6 mmol/L Normal 3.7-5.1 [facility] Comment on above: Order Comment: Speci men Type: BLOOD SPECIMENOrdering Facility: [facility] Address: [address] [place] [address] Performed By: #### 2 4362-6 ####[facility]IA [id number] [place] [address] [place] Sodium [Moles/Vol] 136 mmol/L Normal 136-144 [facility] Comment on above: Order Comment: Speci men Type: BLOOD SPECIMENOrdering Facility: [facility] Address: [address] [place] [address] Performed By: #### 2 4362-6 ####[facility] LABIA [id number] [place] [address] [place] Urea nitrogen [Mass/Vol] 20 mg/dL Normal 7-21 [facility] Comment on above: Order Comment: Speci men Type: BLOOD SPECIMENOrdering Facility: [facility] Address: [address] [place] [address] Performed By: #### 2 4362-6 ####[facility] LABRITAIA [id number] [address] [address] [place] THERAPY NTon 07-17-2024 THERAPY NT HNO ID: [id number] Author: SANTIAGO GUZMAN, OT/L Service: Occupational Therapy Author Type: Occupational Therapist Type: Therapy (PT/OT/Speech/Resp) Filed: 07/17/2024 15:14 Note Text: Occupational Therapy Treatment Summary SERVICE DATE: 07/17/2024 SERVICE TIME: 1425 to 1504 ROOM: [place] [address] OT 6 Clicks Score: 15 DISCHARGE RECOMMENDATIONS [...] Weakness (generalized) TREATMENT INTERVENTIONS Self Mcfp Management (73626) Timed Code Treatment (minutes): 39 Skilled Treatment [...] Sit to Stand, Standing Balance to Improve [place] with ADLs/Self-Care, Sitting Balance to Improve [place] with ADLs/Self-Care, Life Roles/Routines/Habits THERAPEUTIC SKILLS USED [...] to Sit Contact Guard Assistance Bed to [facility] (more content not included)... Normal [facility] THERAPY NT HNO ID: [id number] Author: GABRIELLA DALEY, PT Service: Physical Therapy Author Type: Physical Therapist Type: Therapy (PT/OT/Speech/Resp) Filed: 07/17/2024 09:31 Note Text: Physical Therapy Evaluation Summary SERVICE DATE: 07/17/2024 SERVICE TIME: 832 to 911 ROOM: [place] [address] PT 6 Clicks Score: 18 DISCHARGE RECOMMENDATIONS [...] DIAGNOSIS Reduced mobility-other TREATMENT INTERVENTIONS $ Evaluation-Moderate (27596) Billed Units: 1 unit Therapeutic Activity (85608) Treatment Minutes: 10 $ Therapeutic Activity (38920) Billed Units: 1 unit Gait Training (09867) Treatment Minutes: 14 $ Gait Training (69142) Billed Units: 1 unit Evaluation, Therapeutic Activity (37187), Gait Training (11893) Timed Code Treatment (minutes): 24 Skilled Treatment [...] Conservation Training, (more content not included)... Normal [facility] BSCAN OD (RIGHT EYE)on 07-16 [facility] Radiology Study observation (narrative) [facility] CBC panel Auto (Bld)on 07-16 Erythrocyte distribution width (RBC) [Ratio] 17.8 % High 11.5-15.0 [facility] Comment on above: Order Comment: Speci men Type: BLOOD SPECIMEN Ordering Facility: [facility] Address: [address] [place] [address] Performed By: #### 5 8410-2 #### [facility] CLIA [id number] [address] [place] [address] [place] Hematocrit (Bld) [Volume fraction] 33.2 % Low 36.0-46.0 [facility] Comment on above: Order Comment: Speci men Type: BLOOD SPECIMEN Ordering Facility: [facility] Address: [address] [place] [address] Performed By: #### 5 8410-2 #### [facility] CLIA [id number] [address] [place] [address] [place] Hemoglobin (Bld) [Mass/Vol] 10.3 g/dL Low 11.5-15.5 [facility] Comment on above: Order Comment: Speci men Type: BLOOD SPECIMEN Ordering Facility: [facility] Address: [address] [place] [address] Performed By: #### 5 8410-2 #### [facility] CLIA [id number] [address] [place] [address] [place] MCH (RBC) [Entitic mass] 25.6 pg Low 26.0-34.0 [facility] Comment on above: Order Comment: Speci men Type: BLOOD SPECIMEN Ordering Facility: [facility] Address: [address] [place] [address] Performed By: #### 5 8410-2 #### [facility] CLIA [id number] [address] [place] [address] [place] MCHC (RBC) [Mass/Vol] 31.0 g/dL Normal 30.5-36.0 [facility] Comment on above: Order Comment: Speci men Type: BLOOD SPECIMEN Ordering Facility: [facility] Address: [address] [place] [address] Performed By: #### 5 8410-2 #### [facility] CLIA [id number] [address] [place] [address] [place] MCV (RBC) [Entitic vol] 82.4 fL Normal 80.0-100.0 [facility] Comment on above: Order Comment: Speci men Type: BLOOD SPECIMEN Ordering Facility: [facility] Address: [address] [place] [address] Performed By: #### 5 8410-2 #### [facility] CLIA [id number] [address] [place] [address] [place] Nucleated RBC (Bld) [#/Vol] 10*3/uL Normal <0.01 [facility] Comment on above: Order Comment: Speci men Type: BLOOD SPECIMEN Ordering Facility: [facility] Address: [address] [place] [address] Performed By: #### 5 8410-2 #### [facility] CLIA [id number] [address] [place] [address] [place] Platelet mean volume (Bld) [Entitic vol] 9.8 fL Normal 9.0-12.7 [facility] Comment on above: Order Comment: Speci men Type: BLOOD SPECIMEN Ordering Facility: [facility] Address: [address] [place] [address] Performed By: #### 5 8410-2 #### [facility] CLIA [id number] [address] [place] [address] [place] Platelets (Bld) [#/Vol] 348 10*3/uL Normal 150-400 [facility] Comment on above: Order Comment: Speci men Type: BLOOD SPECIMEN Ordering Facility: [facility] Address: [address] [place] [address] Performed By: #### 5 8410-2 #### [facility] CLIA [id number] [address] [place] [address] [place] RBC (Bld) [#/Vol] 4.03 10*6/uL Normal 3.90-5.20 [facility] Comment on above: Order Comment: Speci men Type: BLOOD SPECIMEN Ordering Facility: [facility] Address: [address] [place] [address] Performed By: #### 5 8410-2 #### [facility] CLIA [id number] [address] [place] [address] [place] WBC (Bld) [#/Vol] 11.15 10*3/uL High 3.70-11.00 [facility] Comment on above: Order Comment: Speci men Type: BLOOD SPECIMEN Ordering Facility: [facility] Address: [address] [place] [address] Performed By: #### 5 8410-2 #### [facility] CLIA [id number] [address] [place] [address] [place] FUNDUS PHOTOS OU (BOTH EYES) on 07-16-2024 [facility] Radiology Study observation (narrative) Amarjit Harris Renal function 2000 panelon 07-16-2024 Albumin [Mass/Vol] 3.1 g/dL Low 3.9-4.9 [facility] Comment on above: Order Comment: Speci men Type: BLOOD SPECIMENOrdering Facility: [facility] Address: [address] [place] [address] Performed By: #### 2 4362-6 ####[facility] LABCLIA [id number] [place] [address] [place] Anion gap [Moles/Vol] 12 mmol/L Normal 8-15 [facility] Comment on above: Order Comment: Speci men Type: BLOOD SPECIMENOrdering Facility: [facility] Address: [address] [place] [id number] Performed By: #### 2 4362-6 ####[facility] LABCLIA [id number] [address] [address] [place] Calcium [Mass/Vol] 9.0 mg/dL Normal 8.5-10.2 [facility] Comment on above: Order Comment: Speci men Type: BLOOD SPECIMENOrdering Facility: [facility] Address: [address] [place] [address] Performed By: #### 2 4362-6 ####[facility] LABCLIA [id number] [place] [address] [place] Chloride [Moles/Vol] 103 mmol/L Normal 98-107 [facility] Comment on above: Order Comment: Speci men Type: BLOOD SPECIMENOrdering Facility: [facility] Address: [address] [place], [place] [address] Performed By: #### 2 4362-6 ####[facility] LABCLIA [id number] [place] [address] [place] CO2 [Moles/Vol] 23 mmol/L Normal 22-30 [facility] Comment on above: Order Comment: Speci men Type: BLOOD SPECIMENOrdering Facility: [facility] Address: [address] [place], [place] [address] Performed By: #### 2 4362-6 ####[facility] LABCLIA [id number] [place] [id number] [place] Creatinine [Mass/Vol] 1.09 mg/dL High 0.58-0.96 [facility] Comment on above: Order Comment: Speci men Type: BLOOD SPECIMENOrdering Facility: [facility] Address: [address] [place], [place] [address] Performed By: #### 2 4362-6 ####[facility] LABCLIA [id number] [place] [address] [place] Creatinine and Glomerular filtration rate.predicted panel (S/P/Bld) 50 mL/min/1.73m??? Low >=60 [facility] Comment on above: Order Comment: Rhina mason Type: BLOOD SPECIMENOrdering Facility: [facility] Address: [address] [place] [address] Result Comment: Isa mated Glomerular Filtration Rate [...] actual GFR. Performed By: #### 2 4362-6 ####[facility] LABCLIA [id number] [place] [address] [place] Glucose [Mass/Vol] 103 mg/dL High 74-99 [facility] Comment on above: Order Comment: Rhina mason Type: BLOOD SPECIMENOrdering Facility: [facility] Address: [address] [place] [address] Result Comment: The [employer] Diabetes Association (ADA) provides guidance for cutoff [...] Standards of Medical Care in Diabetes 2016, [employer] Diabetes [employer]. Diabetes Care. 2016.39(Suppl 1). Performed By: #### 2 4362-6 ####[facility] LABCLIA [id number] [place] [address] [place] Phosphate [Mass/Vol] 2.9 mg/dL Normal 2.7-4.8 [facility] Comment on above: Order Comment: Speci men Type: BLOOD SPECIMENOrdering Facility: [facility] Address: [address] [place] [address] Performed By: #### 2 4362-6 ####[facility] LABCLIA [id number] [place] [address] [place] Potassium [Moles/Vol] 4.5 mmol/L Normal 3.7-5.1 [facility] Comment on above: Order Comment: Speci men Type: BLOOD SPECIMENOrdering Facility: [facility] Address: [address] [place] [address] Performed By: #### 2 4362-6 ####[facility] LABIA [id number] [place] [address] [place] Sodium [Moles/Vol] 138 mmol/L Normal 136-144 [facility] Comment on above: Order Comment: Speci men Type: BLOOD SPECIMENOrdering Facility: [facility] Address: [address] [place] [address] Performed By: #### 2 4362-6 ####[facility] LABCLIA [id number] [place] [address] [place] Urea nitrogen [Mass/Vol] 22 mg/dL High 7-21 [facility] Comment on above: Order Comment: Speci men Type: BLOOD SPECIMENOrdering Facility: [facility] Address: [address] [place] [address] Performed By: #### 2 4362-6 ####[facility] LABIA [id number] [place] [address] [place] THERAPY NTon 07-16-2024 THERAPY NT HNO ID: [id number] Author: SANTIAGO GUZMAN OT/L Service: Occupational Therapy Author Type: Occupational Therapist Type: Therapy (PT/OT/Speech/Resp) Filed: 07/16/2024 15:10 Note Text: Occupational Therapy Treatment Summary SERVICE DATE: 07/16/2024 SERVICE TIME: 1415 to 1500 ROOM: H060[facility] OT 6 Clicks Score: 15 DISCHARGE [...] Weakness (generalized) TREATMENT INTERVENTIONS Self Mcfp Management (74798) Timed Code Treatment (minutes): 45 Skilled Treatment [...] Sit to Stand, Standing Balance to Improve [place] with ADLs/Self-Care, Sitting Balance to Improve [place] with ADLs/Self-Care, Life Roles/Routines/Habits THERAPEUTIC SKILLS USED [...] Assistance Sit (more content not included)... Normal [facility] CBC panel Auto (Bld)on 07-15 Erythrocyte distribution width (RBC) [Ratio] 17.8 % High 11.5-15.0 [facility] Comment on above: Order Comment: Speci men Type: BLOOD SPECIMEN [facility] Address: [address] [place] [address] Performed By: #### 2 4362-6 #### [facility] LAB CLIA [id number] [address] [place] [address] [place] Hematocrit (Bld) [Volume fraction] 34.4 % Low 36.0-46.0 [facility] Comment on above: Order Comment: Speci men Type: BLOOD SPECIMEN [facility]ing [facility] Address: [address] [place] [address] Performed By: #### 2 4362-6 #### [facility] LAB CLIA [id number] [address] [place] [address] [place] Hemoglobin (Bld) [Mass/Vol] 10.7 g/dL Low 11.5-15.5 [facility] Comment on above: Order Comment: Speci men Type: BLOOD SPECIMEN [facility]ing [facility] Address: [address] [place] [address] Performed By: #### 2 4362-6 #### [facility] LAB CLIA [id number] [address] [place] [address] [place] MCH (RBC) [Entitic mass] 26.2 pg Normal 26.0-34.0 [facility] Comment on above: Order Comment: Speci men Type: BLOOD SPECIMEN [facility]ing [facility] Address: [address] [place] [address] Performed By: #### 2 4362-6 #### [facility] LAB CLIA [id number] [address] [place] [address] [place] MCHC (RBC) [Mass/Vol] 31.1 g/dL Normal 30.5-36.0 [facility] Comment on above: Order Comment: Speci men Type: BLOOD SPECIMEN [facility] Address: [address] [place] [address] Performed By: #### 2 4362-6 #### [facility] LAB CLIA [id number] [address] [place] [address] [place] MCV (RBC) [Entitic vol] 84.1 fL Normal 80.0-100.0 [facility] Comment on above: Order Comment: Speci men Type: BLOOD SPECIMEN [facility] Address: [address] [place] [address] Performed By: #### 2 4362-6 #### [facility] LAB CLIA [id number] [address] [place] [address] [place] Nucleated RBC (Bld) [#/Vol] 10*3/uL Normal <0.01 [facility] Comment on above: Order Comment: Speci men Type: BLOOD SPECIMEN [facility]ing [facility] Address: [address] [place] [address] Performed By: #### 2 4362-6 #### [facility] LAB CLIA [id number] [address] [place] [address] [place] Platelet mean volume (Bld) [Entitic vol] 10.1 fL Normal 9.0-12.7 [facility] Comment on above: Order Comment: Speci men Type: BLOOD SPECIMEN [facility] Address: [address] [place] [address] Performed By: #### 2 4362-6 #### [facility] LAB CLIA [id number] [address] [place] [address] [place] Platelets (Bld) [#/Vol] 386 10*3/uL Normal 150-400 [facility] Comment on above: Order Comment: Speci men Type: BLOOD SPECIMEN [facility] Address: [address] [place] [address] Performed By: #### 2 4362-6 #### [facility] LAB CLIA [id number] [address] [place] [address] [place] RBC (Bld) [#/Vol] 4.09 10*6/uL Normal 3.90-5.20 [facility] Comment on above: Order Comment: Speci men Type: BLOOD SPECIMEN [facility] Address: [address] [place] [address] Performed By: #### 2 4362-6 #### [facility] LAB CLIA [id number] [address] [place] [address] [place] WBC (Bld) [#/Vol] 10.20 10*3/uL Normal 3.70-11.00 [facility] Comment on above: Order Comment: Speci men Type: BLOOD SPECIMEN [facility] Address: [address] [place] [address] Performed By: #### 2 4362-6 #### [facility] LAB CLIA [id number] [address] [place] [address] [place] Renal function 2000 panelon 07-15-2024 Albumin [Mass/Vol] 3.5 g/dL Low 3.9-4.9 [facility] Comment on above: Order Comment: Speci men Type: BLOOD SPECIMENOrdering Facility: [facility] Address: [address] [place] [address] Performed By: #### 2 4362-6 ####[facility] LABCLIA [id number] [place] [address] [place] Anion gap [Moles/Vol] 12 mmol/L Normal 8-15 [facility] Comment on above: Order Comment: Speci men Type: BLOOD SPECIMENOrdering Facility: [facility] Address: [address] [place] [address] Performed By: #### 2 4362-6 ####[facility] LABCLIA [id number] [place] [address] [place] Calcium [Mass/Vol] 9.1 mg/dL Normal 8.5-10.2 [facility] Comment on above: Order Comment: Speci men Type: BLOOD SPECIMENOrdering Facility: [facility] Address: [address] [place] [address] Performed By: #### 2 4362-6 ####[facility] LABCLIA [id number] [place] [address] [place] Chloride [Moles/Vol] 101 mmol/L Normal 98-107 [facility] Comment on above: Order Comment: Speci men Type: BLOOD SPECIMENOrdering Facility: [facility] Address: [address] [place] [address] Performed By: #### 2 4362-6 ####[facility] LABCLIA [id number] [place] [address] [place] CO2 [Moles/Vol] 24 mmol/L Normal 22-30 [facility] Comment on above: Order Comment: Speci men Type: BLOOD SPECIMENOrdering Facility: [facility] Address: [address] [place] [address] Performed By: #### 2 4362-6 ####[facility] LABCLIA [id number] [place] [address] [place] Creatinine [Mass/Vol] 0.96 mg/dL Normal 0.58-0.96 [facility] Comment on above: Order Comment: Speci men Type: BLOOD SPECIMENOrdering Facility: [facility] Address: [address] [place] [address] Performed By: #### 2 4362-6 ####[facility] LABIA [id number] [place] [address] [place] Creatinine and Glomerular filtration rate.predicted panel (S/P/Bld) 58 mL/min/1.73m??? Low >=60 [facility] Comment on above: Order Comment: Speci men Type: BLOOD SPECIMENOrdering Facility: [facility] Address: [address] [place] [address] Result Comment: Isa mated Glomerular Filtration Rate [...] actual GFR. Performed By: #### 2 4362-6 ####[facility] LABCLIA [id number] [address] [address] [place] Glucose [Mass/Vol] 93 mg/dL Normal 74-99 [facility] Comment on above: Order Comment: Rhina mason Type: BLOOD SPECIMENOrdering Facility: [facility] Address: [address] [place] [id number] Result Comment: The [employer] Diabetes Association (ADA) provides guidance for cutoff [...] Standards of Medical Care in Diabetes 2016, [employer] Diabetes Association. Diabetes Care. 2016.39(Suppl 1). Performed By: #### 2 4362-6 ####[facility] LABCLIA [id number] [place] [id number] [place] Phosphate [Mass/Vol] 3.1 mg/dL Normal 2.7-4.8 [facility] Comment on above: Order Comment: Rhina mason Type: BLOOD SPECIMENOrdering Facility: [facility] Address: [address] [place] [address] Performed By: #### 2 4362-6 ####[facility] LABCLIA [id number] [address] [address] [place] Potassium [Moles/Vol] 4.3 mmol/L Normal 3.7-5.1 [facility] Comment on above: Order Comment: Speci men Type: BLOOD SPECIMENOrdering Facility: [facility] Address: [address] [place] [address] Performed By: #### 2 4362-6 ####[facility] LABCLIA [id number] [place] [address] [place] Sodium [Moles/Vol] 137 mmol/L Normal 136-144 [facility] Comment on above: Order Comment: Speci men Type: BLOOD SPECIMENOrdering Facility: [facility] Address: [address] [place] [address] Performed By: #### 2 4362-6 ####[facility] LABCLIA [id number] [place] [address] [place] Urea nitrogen [Mass/Vol] 19 mg/dL Normal 7-21 [facility] Comment on above: Order Comment: Speci men Type: BLOOD SPECIMENOrdering Facility: [facility] Address: [address] [place] [address] Performed By: #### 2 4362-6 ####[facility] LABCLIA [id number] [place] [address] [place] CBC panel Auto (Bld)on 07-14 Erythrocyte distribution width (RBC) [Ratio] 17.9 % High 11.5-15.0 [facility] Comment on above: Order Comment: Speci men Type: BLOOD SPECIMEN [facility] Address: [address] [place] [address] Performed By: #### 2 4362-6 #### [facility] LAB CLIA [id number] [address] [place] [address] [place] Hematocrit (Bld) [Volume fraction] 33.8 % Low 36.0-46.0 [facility] Comment on above: Order Comment: Speci men Type: BLOOD SPECIMEN [facility] Address: [address] [place] [address] Performed By: #### 2 4362-6 #### [facility] LAB CLIA [id number] [address] [place] [address] [place] Hemoglobin (Bld) [Mass/Vol] 10.7 g/dL Low 11.5-15.5 [facility] Comment on above: Order Comment: Speci men Type: BLOOD SPECIMEN [facility] Address: [address] [place] [address] Performed By: #### 2 4362-6 #### [facility] LAB CLIA [id number] [address] [place] [address] [place] MCH (RBC) [Entitic mass] 26.4 pg Normal 26.0-34.0 [facility] Comment on above: Order Comment: Speci men Type: BLOOD SPECIMEN [facility] Address: [address] [place] [address] Performed By: #### 2 4362-6 #### [facility] CLIA [id number] [address] [place] [address] [place] MCHC (RBC) [Mass/Vol] 31.7 g/dL Normal 30.5-36.0 [facility] Comment on above: Order Comment: Speci men Type: BLOOD SPECIMEN [facility] Address: [address] [place] [address] Performed By: #### 2 4362-6 #### [facility] CLIA [id number] [address] [place] [address] [place] MCV (RBC) [Entitic vol] 83.5 fL Normal 80.0-100.0 [facility] Comment on above: Order Comment: Speci men Type: BLOOD SPECIMEN [facility] Address: [address] [place] [address] Performed By: #### 2 4362-6 #### [facility] CLIA [id number] [address] [id number] [address] [place] Nucleated RBC (Bld) [#/Vol] 10*3/uL Normal <0.01 [facility] Comment on above: Order Comment: Speci men Type: BLOOD SPECIMEN [facility] Address: [address] [place] [address] Performed By: #### 2 4362-6 #### [facility] CLIA [id number] [address] [place] [address] [place] Platelet mean volume (Bld) [Entitic vol] 10.3 fL Normal 9.0-12.7 [facility] Comment on above: Order Comment: Speci men Type: BLOOD SPECIMEN [facility] Address: [address] [place] [address] Performed By: #### 2 4362-6 #### [facility] CLIA [id number] [address] [place] [address] [place] Platelets (Bld) [#/Vol] 345 10*3/uL Normal 150-400 [facility] Comment on above: Order Comment: Speci men Type: BLOOD SPECIMEN [facility] Address: [address] [place] [address] Performed By: #### 2 4362-6 #### [facility] CLIA [id number] [address] [place] [address] [place] RBC (Bld) [#/Vol] 4.05 10*6/uL Normal 3.90-5.20 [facility] Comment on above: Order Comment: Speci men Type: BLOOD SPECIMEN [facility] Address: [address] [place] [address] Performed By: #### 2 4362-6 #### [facility] CLIA [id number] [address] [place] [address] [place] WBC (Bld) [#/Vol] 11.07 10*3/uL High 3.70-11.00 [facility] Comment on above: Order Comment: Speci men Type: BLOOD SPECIMEN [facility] Address: [address] [place], [place] [address] Performed By: #### 2 4362-6 #### [facility] CLIA [id number] [address] [place] [address] [place] Renal function 2000 panelon 07-14-2024 Albumin [Mass/Vol] 3.5 g/dL Low 3.9-4.9 [facility] Comment on above: Order Comment: Speci men Type: BLOOD SPECIMEN [facility] Address: [address] [place] [address] Performed By: #### 2 4362-6 #### [facility] CLIA [id number] [address] [place] [address] [place] Anion gap [Moles/Vol] 14 mmol/L Normal 8-15 [facility] Comment on above: Order Comment: Speci men Type: BLOOD SPECIMEN [facility]ing [facility] Address: [address] [place] [address] Performed By: #### 2 4362-6 #### [facility] CLIA [id number] [address] [place] [address] [place] Calcium [Mass/Vol] 9.1 mg/dL Normal 8.5-10.2 [facility] Comment on above: Order Comment: Speci men Type: BLOOD SPECIMEN Ordering Facility[facility] Address: [address] [place], [place] [address] Performed By: #### 2 4362-6 #### [facility] CLIA [id number] [address] [place] [address] [place] Chloride [Moles/Vol] 98 mmol/L Normal 98-107 [facility] Comment on above: Order Comment: Speci men Type: BLOOD SPECIMEN [facility]ing [facility] Address: [address] [place] [address] Performed By: #### 2 4362-6 #### [facility] CLIA [id number] [address] [place] [address] [place] CO2 [Moles/Vol] 22 mmol/L Normal 22-30 [facility] Comment on above: Order Comment: Speci men Type: BLOOD SPECIMEN [facility]ing [facility] Address: [address] [place] [address] Performed By: #### 2 4362-6 #### [facility] CLIA [id number] [address] [place] [address] [place] Creatinine [Mass/Vol] 1.01 mg/dL High 0.58-0.96 [facility] Comment on above: Order Comment: Speci men Type: BLOOD SPECIMEN [facility]ing [facility]: [facility] Address: [address] [place] [address] Performed By: #### 2 4362-6 #### [facility] CLIA [id number] [address] [place] [address] [place] Creatinine and Glomerular filtration rate.predicted panel (S/P/Bld) 55 mL/min/1.73m??? Low >=60 [facility] Comment on above: Order Comment: Speci men Type: BLOOD SPECIMEN [facility]ing [facility]: [facility] Address: [address] [place] [address] Result Comment: Isa mated Glomerular Filtration Rate [...] GFR. Performed By: #### 2 4362-6 #### [facility] CLIA [id number] [address] [place] [address] [place] Glucose [Mass/Vol] 131 mg/dL High 74-99 [facility] Comment on above: Order Comment: Speci men Type: BLOOD SPECIMEN Ordering Facility: [facility] Address: [address] [place], [place] [id number] Result Comment: The [employer] Diabetes Association (ADA) provides guidance for cutoff [...] Standards of Medical Care in Diabetes 2016, [employer]. Diabetes Care. 2016.39(Suppl 1). Performed By: #### 2 4362-6 #### [facility] CLIA [id number] [address] [place] [address] [place] Phosphate [Mass/Vol] 3.5 mg/dL Normal 2.7-4.8 [facility] Comment on above: Order Comment: Speci men Type: BLOOD SPECIMEN Ordering Facility: [facility] Address: [address] [place] [address] Performed By: #### 2 4362-6 #### [facility] CLIA [id number] [address] [place] [address] [place] Potassium [Moles/Vol] 4.1 mmol/L Normal 3.7-5.1 [facility] Comment on above: Order Comment: Speci men Type: BLOOD SPECIMEN Ordering Facility: [facility] Address: [address] [place] [address] Performed By: #### 2 4362-6 #### [facility] CLIA [id number] [address] [place] [address] [place] Sodium [Moles/Vol] 134 mmol/L Low 136-144 [facility] Comment on above: Order Comment: Speci men Type: BLOOD SPECIMEN Ordering Facility: [facility] Address: [address] [place], [place] [id number] Performed By: #### 2 4362-6 #### [facility] CLIA [id number] [address] [place] [address] [place] Urea nitrogen [Mass/Vol] 19 mg/dL Normal 7-21 [facility] Comment on above: Order Comment: Speci men Type: BLOOD SPECIMEN Ordering Facility: [facility] Address: [address] [place] [address] Performed By: #### 2 4362-6 #### [facility] [facility] CLIA [id number] [address] [place] [address] [place] ANES POSTPROC EVALon 024 ANES POSTPROC EVAL HNO ID: [id number] Author: SIERRA FALK MD Service: ? Author Type: Anesthesiologist Type: Anesthesia Postprocedure Evaluation Filed: 07/13/2024 15:57 Note Text: POST ANESTHESIA EVALUATION NOTE : 1940 Procedure Summary Date: 07/13/24 Room / Location: [address] Anesthesia Start: 1222 Anesthesia Stop: 1337 [...] July 13, 2024 TIME: 3:57 PM CSN: [id number] Normal [facility] ANES PRE-OPon 07-13-2024 ANES PRE-OP HNO ID: [id number] Author: SIERRA FALK MD Service: ? Author Type: Anesthesiologist Type: Anesthesia Preprocedure Evaluation Filed: 07/13/2024 09:44 Note Text: ANESTHESIOLOGY DAY OF SURGERY NOTE : 1940 Procedure Information Date/Time: 07/13/241403 Procedure: ASPIRATION VITREOUS, CHOROIDAL FLUID, PARS PLANA APPROACH (Right: Eye) Location: [place] [address] / [facility] Surgeons: Savana Lopez MD Estimated body mass [...] 0.5 tablets by mouth every 12 hours. fdbbtkjgogb-ptixehjem-r ilanter (TRELEGY ELLIPTA) 100-62.5-25 mcg inhalation powder Inhale 1 Puff as instructed once daily. acetaminophen (TYLENOL) 325 mg tablet Take 2 tablets by mouth every 6 hours as needed for pain. ascorbic acid (more content not included)... [facility]NAGEM HNO ID: [id number] Author: REBECA BELLE LSW Service: ? Author Type: Comic Illustrator Type: Care Mgt Progress Note Filed: 07/13/2024 16:25 Note Text: CARE MANAGEMENT WEEKEND PLANNING NOTE NO WEEKEND DISCHARGE Disposition: Care Home Facility Anticipated Discharge Date: TBD CM followed up with pt's daughter for SNF choices. Pt is currently in the OR- unable to send referrals in careport or complete edit note side bar. 1)[facility] 2)[facility] 3)[facility] 4)[facility] 5)[facility] Will need accepting SNF and precert prior to dc. UPDATE 4:24pm: Referrals sent; awaiting response. Weekend Easement Worker Pager #: Please see Treatment Team for Care Management Weekend/Holiday coverage. SIGNATURE: SHAQUILLE Nuñez PATIENT NAME: Mel Castillo DATE: July 13, 2024 TIME: 3:09 PM PAGER/CONTACT #: [phone] Normal [facility] CBC panel Auto (Bld)on 07-13 Erythrocyte distribution width (RBC) [Ratio] 17.6 % High 11.5-15.0 [facility] Comment on above: Order Comment: Speci men Type: BLOOD SPECIMENOrdering Facility: [facility] Address: [address] [place] [address] Performed By: #### 5 8410-2 ####[facility] LABCLIA [id number] [place] [address] [place] Hematocrit (Bld) [Volume fraction] 34.5 % Low 36.0-46.0 [facility] Comment on above: Order Comment: Speci men Type: BLOOD SPECIMENOrdering Facility: [facility] Address: [address] [place] [address] Performed By: #### 5 8410-2 ####[facility] LABCLIA [id number] [place] [address] [place] Hemoglobin (Bld) [Mass/Vol] 10.8 g/dL Low 11.5-15.5 [facility] Comment on above: Order Comment: Speci men Type: BLOOD SPECIMENOrdering Facility: [facility] Address: [address] [place] [address] Performed By: #### 5 8410-2 ####[facility] LABCLIA [id number] [place] [address] [place] MCH (RBC) [Entitic mass] 26.1 pg Normal 26.0-34.0 [facility] Comment on above: Order Comment: Speci men Type: BLOOD SPECIMENOrdering Facility: [facility] Address: [address] [place] [address] Performed By: #### 5 8410-2 ####[facility] LABCLIA [id number] [place] [address] [place] MCHC (RBC) [Mass/Vol] 31.3 g/dL Normal 30.5-36.0 [facility] Comment on above: Order Comment: Speci men Type: BLOOD SPECIMENOrdering Facility: [facility] Address: [address] [place] [address] Performed By: #### 5 8410-2 ####[facility] LABCLIA [id number] [place] [address] [place] MCV (RBC) [Entitic vol] 83.3 fL Normal 80.0-100.0 [facility] Comment on above: Order Comment: Speci men Type: BLOOD SPECIMENOrdering Facility: [facility] Address: [address] [place] [address] Performed By: #### 5 8410-2 ####[facility] LABCLIA [id number] [place] [address] [place] Nucleated RBC (Bld) [#/Vol] 10*3/uL Normal <0.01 [facility] Comment on above: Order Comment: Speci men Type: BLOOD SPECIMENOrdering Facility: [facility] Address: [address] [place] [address] Performed By: #### 5 8410-2 ####[facility] LABCLIA [id number] [place] [address] [place] Platelet mean volume (Bld) [Entitic vol] 9.7 fL Normal 9.0-12.7 [facility] Comment on above: Order Comment: Speci men Type: BLOOD SPECIMENOrdering Facility: [facility] Address: [address] [place] [address] Performed By: #### 5 8410-2 ####[facility] LABCLIA [id number] [place] [address] [place] Platelets (Bld) [#/Vol] 334 10*3/uL Normal 150-400 [facility] Comment on above: Order Comment: Speci men Type: BLOOD SPECIMENOrdering Facility: [facility] Address: [address] [place] [address] Performed By: #### 5 8410-2 ####[facility] LABIA [id number] [place] [address] [place] RBC (Bld) [#/Vol] 4.14 10*6/uL Normal 3.90-5.20 [facility] Comment on above: Order Comment: Speci men Type: BLOOD SPECIMENOrdering Facility: [facility] Address: [address] [place] [address] Performed By: #### 5 8410-2 ####[facility] LABIA [id number] [place] [address] [place] WBC (Bld) [#/Vol] 10.74 10*3/uL Normal 3.70-11.00 [facility] Comment on above: Order Comment: Speci men Type: BLOOD SPECIMENOrdering Facility: [facility] Address: [address] [place] [address] Performed By: #### 5 8410-2 ####[facility] LABIA [id number] [place] [address] [place] ECHO WITH AGITATED SALINE CO NTRASTon 07-13-2024 ECHO WITH AGITATED SALINE CONTRAST Echocardiography Report: Transthoracic Echo [facility] Date of service: 07/13/2024 3:54:27 PM DIRECTOR Ordering physician: FELICIA LEVY Indication: Limited KYLE [...] * * Final * * * [employer] - The Simple, Fast and Elegant Tablet Sales App Medical Image : [id number] [id number] Normal [facility] NUTRITIONon 07-13-2024 NUTRITION HNO ID: [id number] Author: PAWAN PRESLEY DTR Service: Nutrition Therapy Author Type: Chopped Strand Operator Type: Nutrition Filed: 07/13/2024 11:50 Note Text: NUTRITION THERAPY DESKTOP ARCHITECT NOTE SERVICE DATE: 07/13/2024 SERVICE TIME: 1045 Visit Type: Length of Stay Evaluation Goals Met: Not Met The patient was not available at time of visit. Per [facility], she has not met nutritional goals. Will start nutritional supplement and follow up for intake improvements and tolerance of nutritional supplements. Plan of Care: Supplements: Ensure Plus High Protein Follow-Up: [facility] Reassessment Nursing Admission Assessment Malnutrition Score: Nutrition [...] supplements Allergies: No food allergies noted per [facility]. MNT Billing: $ Routine Care : 1-15 minutes SIGNATURE: Pawan Presley DTR PATIENT NAME: Mel Castillo DATE: July 13, 2024 TIME: 11:49 AM Normal [facility] OPERATIVE NOon 07-13-2024 OPERATIVE NO HNO ID: [id number] Author: SAVANA LOPEZ MD Service: Ophthalmology Author Type: Physician Type: Operative Report Filed: 07/13/2024 13:32 Note Text: [place] [address] [place] [facility] OPERATIVE REPORT LOG ID: [id number] Surgery/Procedure Date: 07/13/2024 Incision/Procedure Start Time: 12:43 PM Incision Close/Procedure End Time: 1:32 PM NAME: Mel Pop [facility] #: [id number] SURGEON(S) AND CUSTOMER SERVICE ANALYST(S): Surgeons and Role: * Savana Lopez MD [...] MD Vitreoretinal Surgery AND Ocular Inflammatory Diseases [facility] [place] Normal [facility] Renal function 2000 panelon 07-13-2024 Albumin [Mass/Vol] 3.5 g/dL Low 3.9-4.9 [facility] Comment on above: Order Comment: Rhina mason Type: BLOOD SPECIMENOrdering Facility: [facility] Address: [address] [place] [address] Performed By: #### 2 4362-6 ####[facility] LABCLIA [id number] [address] [address] [place] Anion gap [Moles/Vol] 10 mmol/L Normal 8-15 [facility] Comment on above: Order Comment: Rhina mason Type: BLOOD SPECIMENOrdering Facility: [facility] Address: [address] [place] [address] Performed By: #### 2 4362-6 ####[facility] LABCLIA [id number] [address] [address] [place] Calcium [Mass/Vol] 9.3 mg/dL Normal 8.5-10.2 [facility] Comment on above: Order Comment: Speci men Type: BLOOD SPECIMENOrdering Facility: [facility] Address: [address] [place], [place] [address] Performed By: #### 2 4362-6 ####[facility] LABCLIA [id number] [place] [address] [place] Chloride [Moles/Vol] 100 mmol/L Normal 98-107 [facility] Comment on above: Order Comment: Speci men Type: BLOOD SPECIMENOrdering Facility: [facility] Address: [address] [place] [address] Performed By: #### 2 4362-6 ####[facility] LABCLIA [id number] [place] [address] [place] CO2 [Moles/Vol] 27 mmol/L Normal 22-30 [facility] Comment on above: Order Comment: Speci men Type: BLOOD SPECIMENOrdering Facility: [facility] Address: [address] [place], [place] [address] Performed By: #### 2 4362-6 ####[facility] LABCLIA [id number] [place] [id number] [place] Creatinine [Mass/Vol] 0.92 mg/dL Normal 0.58-0.96 [facility] Comment on above: Order Comment: Speci men Type: BLOOD SPECIMENOrdering Facility: [facility] Address: [address] [place], [place] [address] Performed By: #### 2 4362-6 ####[facility] LABCLIA [id number] [place] [id number] [place] Creatinine and Glomerular filtration rate.predicted panel (S/P/Bld) 62 mL/min/1.73m??? Normal >=60 [facility] Comment on above: Order Comment: Rhina mason Type: BLOOD SPECIMENOrdering Facility: [facility] Address: [address] [place] [address] Result Comment: Isa mated Glomerular Filtration Rate [...] actual GFR. Performed By: #### 2 4362-6 ####[facility] LABIA [id number] [place] [address] [place] Glucose [Mass/Vol] 103 mg/dL High 74-99 [facility] Comment on above: Order Comment: Rhina mason Type: BLOOD SPECIMENOrdering Facility: [facility] Address: [address] [place] [address] Result Comment: The [place] Diabetes Association (ADA) provides guidance for cutoff [...] Standards of Medical Care in Diabetes 2016, [employer] Diabetes Association. Diabetes Care. 2016.39(Suppl 1). Performed By: #### 2 4362-6 ####[facility] LABIA [id number] [place] [address] [place] Phosphate [Mass/Vol] 3.5 mg/dL Normal 2.7-4.8 [facility] Comment on above: Order Comment: Speci men Type: BLOOD SPECIMENOrdering Facility: [facility] Address: [address] [place], [place] [address] Performed By: #### 2 4362-6 ####[facility] LABCLIA [id number] [address] [address] [place] Potassium [Moles/Vol] 4.2 mmol/L Normal 3.7-5.1 [facility] Comment on above: Order Comment: Speci men Type: BLOOD SPECIMENOrdering Facility: [facility] Address: [address] [place] [address] Performed By: #### 2 4362-6 ####[facility] LABCLIA [id number] [place] [address] [place] Sodium [Moles/Vol] 137 mmol/L Normal 136-144 [facility] Comment on above: Order Comment: Speci men Type: BLOOD SPECIMENOrdering Facility: [facility] Address: [address] [place] [address] Performed By: #### 2 4362-6 ####[facility] LABCLIA [id number] [place] [address] [place] Urea nitrogen [Mass/Vol] 12 mg/dL Normal 7-21 [facility] Comment on above: Order Comment: Speci men Type: BLOOD SPECIMENOrdering Facility: [facility] Address: [address] [place], [place] [address] Performed By: #### 2 4362-6 ####[facility] LABCLIA [id number] [place] [id number] [place] BSCAN OD (RIGHT EYE)on 07-12 [facility] Radiology Study observation (narrative) [facility] CBC panel Auto (Bld)on 07-12 Erythrocyte distribution width (RBC) [Ratio] 17.8 % High 11.5-15.0 [facility] Comment on above: Order Comment: Speci men Type: BLOOD SPECIMENOrdering Facility: [facility] Address: [address] [place] [address] Performed By: #### 5 8410-2 ####[facility] LABCLIA [id number] [place] [address] [place] Hematocrit (Bld) [Volume fraction] 34.7 % Low 36.0-46.0 [facility] Comment on above: Order Comment: Speci men Type: BLOOD SPECIMENOrdering Facility: [facility] Address: [address] [place] [address] Performed By: #### 5 8410-2 ####[facility] LABCLIA [id number] [place] [address] [place] Hemoglobin (Bld) [Mass/Vol] 10.6 g/dL Low 11.5-15.5 [facility] Comment on above: Order Comment: Speci men Type: BLOOD SPECIMENOrdering Facility: [facility] Address: [address] [place] [address] Performed By: #### 5 8410-2 ####[facility] LABCLIA [id number] [place] [address] [place] MCH (RBC) [Entitic mass] 26.4 pg Normal 26.0-34.0 [facility] Comment on above: Order Comment: Speci men Type: BLOOD SPECIMENOrdering Facility: [facility] Address: [address] [place] [address] Performed By: #### 5 8410-2 ####[facility] LABCLIA [id number] [place] [address] [place] MCHC (RBC) [Mass/Vol] 30.5 g/dL Normal 30.5-36.0 [facility] Comment on above: Order Comment: Speci men Type: BLOOD SPECIMENOrdering Facility: [facility] Address: [address] [place] [address] Performed By: #### 5 8410-2 ####[facility] LABCLIA [id number] [place] [address] [place] MCV (RBC) [Entitic vol] 86.3 fL Normal 80.0-100.0 [facility] Comment on above: Order Comment: Speci men Type: BLOOD SPECIMENOrdering Facility: [facility] Address: [address] [place] [address] Performed By: #### 5 8410-2 ####[facility] LABIA [id number] [place] [address] [place] Nucleated RBC (Bld) [#/Vol] 10*3/uL Normal <0.01 [facility] Comment on above: Order Comment: Speci men Type: BLOOD SPECIMENOrdering Facility: [facility] Address: [address] [place] [address] Performed By: #### 5 8410-2 ####[facility] LABIA [id number] [place] [address] [place] Platelet mean volume (Bld) [Entitic vol] 9.9 fL Normal 9.0-12.7 [facility] Comment on above: Order Comment: Speci men Type: BLOOD SPECIMENOrdering Facility: [facility] Address: [address] [place] [address] Performed By: #### 5 8410-2 ####[facility] LABIA [id number] [place] [address] [place] Platelets (Bld) [#/Vol] 301 10*3/uL Normal 150-400 [facility] Comment on above: Order Comment: Speci men Type: BLOOD SPECIMENOrdering Facility: [facility] Address: [address] [place] [address] Performed By: #### 5 8410-2 ####[facility] LABIA [id number] [place] [address] [place] RBC (Bld) [#/Vol] 4.02 10*6/uL Normal 3.90-5.20 [facility] Comment on above: Order Comment: Speci men Type: BLOOD SPECIMENOrdering Facility: [facility] Address: [address] [place] [address] Performed By: #### 5 8410-2 ####[facility] LABCLIA [id number] [place] [address] [place] WBC (Bld) [#/Vol] 10.07 10*3/uL Normal 3.70-11.00 [facility] Comment on above: Order Comment: Speci men Type: BLOOD SPECIMENOrdering Facility: [facility] Address: [address] [place] [address] Performed By: #### 5 8410-2 ####[facility] LABCLIA [id number] [place] [address] [place] PT EDon 07-12-2024 PT ED HNO ID: [id number] Author: GISSELL POPE RPh Service: Pharmacy Author [...] inpatient anticoagulant education. Gissell Pope RPh Normal [facility] Renal function 2000 panelon 07-12-2024 Albumin [Mass/Vol] 3.4 g/dL Low 3.9-4.9 [facility] Comment on above: Order Comment: Speci men Type: BLOOD SPECIMENOrdering Facility: [facility] Address: [address] [place], [place] [address] Performed By: #### 2 4362-6 ####[facility] LABCLIA [id number] [place] [id number] [place] Anion gap [Moles/Vol] 14 mmol/L Normal 8-15 [facility] Comment on above: Order Comment: Speci men Type: BLOOD SPECIMENOrdering Facility: [facility] Address: [address] [place] [address] Performed By: #### 2 4362-6 ####[facility] LABCLIA [id number] [place] [address] [place] Calcium [Mass/Vol] 9.3 mg/dL Normal 8.5-10.2 [facility] Comment on above: Order Comment: Speci men Type: BLOOD SPECIMENOrdering Facility: [facility] Address: [address] [place] [address] Performed By: #### 2 4362-6 ####[facility] LABCLIA [id number] [place] [address] [place] Chloride [Moles/Vol] 101 mmol/L Normal 98-107 [facility] Comment on above: Order Comment: Speci men Type: BLOOD SPECIMENOrdering Facility: [facility] Address: [address] [place] [address] Performed By: #### 2 4362-6 ####[facility] LABCLIA [id number] [place] [id number] [place] CO2 [Moles/Vol] 21 mmol/L Low 22-30 [facility] Comment on above: Order Comment: Speci men Type: BLOOD SPECIMENOrdering Facility: [facility] Address: [address] [place], [place] [address] Performed By: #### 2 4362-6 ####[facility] LABCLIA [id number] [place] [address] [place] Creatinine [Mass/Vol] 0.81 mg/dL Normal 0.58-0.96 [facility] Comment on above: Order Comment: Rhina mason Type: BLOOD SPECIMENOrdering Facility: [facility] Address: [address] [place] [address] Performed By: #### 2 4362-6 ####[facility] LABIA [id number] [address] [facility] Creatinine and Glomerular filtration rate.predicted panel (S/P/Bld) 72 mL/min/1.73m??? Normal >=60 [facility] Comment on above: Order Comment: Rhina mason Type: BLOOD SPECIMENOrdering Facility: [facility] Address: [address] [place] [address] Result Comment: Isa mated Glomerular Filtration Rate [...] actual GFR. Performed By: #### 2 4362-6 ####[facility] LABIA [id number] [place] [address] [place] Glucose [Mass/Vol] 100 mg/dL High 74-99 [facility] Comment on above: Order Comment: Rhina mason Type: BLOOD SPECIMENOrdering Facility: [facility] Address: [address] [place] [address] Result Comment: The [place] Diabetes Association (ADA) provides guidance for cutoff [...] Standards of Medical Care in Diabetes 2016, [place] Diabetes Association. Diabetes Care. 2016.39(Suppl 1). Performed By: #### 2 4362-6 ####[facility] LABCLIA [id number] [address] [address] [place] Phosphate [Mass/Vol] 2.7 mg/dL Normal 2.7-4.8 [facility] Comment on above: Order Comment: Speci men Type: BLOOD SPECIMENOrdering Facility: [facility] Address: [address] [place] [address] Performed By: #### 2 4362-6 ####[facility] LABIA [id number] [place] [address] [place] Potassium [Moles/Vol] 4.0 mmol/L Normal 3.7-5.1 [facility] Comment on above: Order Comment: Speci men Type: BLOOD SPECIMENOrdering Facility: [facility] Address: [address] [place], [place] [address] Performed By: #### 2 4362-6 ####[facility] LABIA [id number] [place] [id number] [place] Sodium [Moles/Vol] 136 mmol/L Normal 136-144 [facility] Comment on above: Order Comment: Speci men Type: BLOOD SPECIMENOrdering Facility: [facility] Address: [address] [place] [address] Performed By: #### 2 4362-6 ####[facility] LABIA [id number] [place] [id number] [place] Urea nitrogen [Mass/Vol] 12 mg/dL Normal 7-21 [facility] Comment on above: Order Comment: Speci men Type: BLOOD SPECIMENOrdering Facility: [facility] Address: [address] [place] [address] Performed By: #### 2 4362-6 ####[facility] LABCLIA [id number] [place] [address] [place] Right eye Photo documentatio non 07-12-2024 [facility] Radiology Study observation (narrative) Amarjit chaudhry [facility] THERAPY NTon 07-12-2024 THERAPY NT HNO ID: [id number] Author: RYANN GUZMÁN OT/L Service: Occupational Therapy Author Type: Occupational Therapist Type: Therapy (PT/OT/Speech/Resp) Filed: 07/12/2024 12:26 Note Text: OCCUPATIONAL THERAPY MISSED VISIT SERVICE DATE: 07/12/2024 SERVICE TIME: 1226 ROOM: [place] [address] ([facility] OPHTHALMOLOGY) Patient not seen due to Test / Procedure. SIGNATURE: JUANY Willett PATIENT NAME: Mel Castillo DATE: July 12, 2024 TIME: 12:26 PM Normal [facility] CBC panel Auto (Bld)on 07-11 Erythrocyte distribution width (RBC) [Ratio] 17.6 % High 11.5-15.0 [facility] Comment on above: Order Comment: Speci men Type: BLOOD SPECIMEN Ordering Facility: [facility] Address: [address] [place] [address] Performed By: #### 5 8410-2 #### [facility] CLIA [id number] [address] [place] [address] [place] Hematocrit (Bld) [Volume fraction] 32.3 % Low 36.0-46.0 [facility] Comment on above: Order Comment: Speci men Type: BLOOD SPECIMEN Ordering Facility: [facility] Address: [address] [place] [address] Performed By: #### 5 8410-2 #### [facility] CLIA [id number] [address] [place] [address] [place] Hemoglobin (Bld) [Mass/Vol] 10.5 g/dL Low 11.5-15.5 [facility] Comment on above: Order Comment: Speci men Type: BLOOD SPECIMEN Ordering Facility: [facility] Address: [address] [place] [address] Performed By: #### 5 8410-2 #### [facility] CLIA [id number] [address] [place] [address] [place] MCH (RBC) [Entitic mass] 27.0 pg Normal 26.0-34.0 [facility] Comment on above: Order Comment: Speci men Type: BLOOD SPECIMEN Ordering Facility: [facility] Address: [address] [place] [address] Performed By: #### 5 8410-2 #### [facility] CLIA [id number] [address] [place] [address] [place] MCHC (RBC) [Mass/Vol] 32.5 g/dL Normal 30.5-36.0 [facility] Comment on above: Order Comment: Speci men Type: BLOOD SPECIMEN Ordering Facility: [facility] Address: [address] [place] [address] Performed By: #### 5 8410-2 #### [facility] CLIA [id number] [address] [place] [address] [place] MCV (RBC) [Entitic vol] 83.0 fL Normal 80.0-100.0 [facility] Comment on above: Order Comment: Speci men Type: BLOOD SPECIMEN Ordering Facility: [facility] Address: [address] [place] [address] Performed By: #### 5 8410-2 #### [facility] CLIA [id number] [address] [place] [address] [place] Nucleated RBC (Bld) [#/Vol] 10*3/uL Normal <0.01 [facility] Comment on above: Order Comment: Speci men Type: BLOOD SPECIMEN Ordering Facility: [facility] Address: [address] [place] [address] Performed By: #### 5 8410-2 #### [facility] CLIA [id number] [address] [place], [place] [id number] [place] Platelet mean volume (Bld) [Entitic vol] 9.9 fL Normal 9.0-12.7 [facility] Comment on above: Order Comment: Speci men Type: BLOOD SPECIMEN Ordering Facility: [facility] Address: [address] [place] [address] Performed By: #### 5 8410-2 #### [facility] CLIA [id number] [address] [place] [address] [place] Platelets (Bld) [#/Vol] 289 10*3/uL Normal 150-400 [facility] Comment on above: Order Comment: Speci men Type: BLOOD SPECIMEN Ordering Facility: [facility] Address: [address] [place] [address] Performed By: #### 5 8410-2 #### [facility] CLIA [id number] [address] [place] [address] [place] RBC (Bld) [#/Vol] 3.89 10*6/uL Low 3.90-5.20 [facility] Comment on above: Order Comment: Speci men Type: BLOOD SPECIMEN Ordering Facility: [facility] Address: [address] [place] [address] Performed By: #### 5 8410-2 #### [facility] CLIA [id number] [address] [place] [address] [place] WBC (Bld) [#/Vol] 8.32 10*3/uL Normal 3.70-11.00 [facility] Comment on above: Order Comment: Speci men Type: BLOOD SPECIMEN Ordering Facility: [facility] Address: [address] [place] [address] Performed By: #### 5 8410-2 #### [facility] CLIA [id number] [address] [place] [address] [place] Renal function 2000 panelon 07-11-2024 Albumin [Mass/Vol] 3.4 g/dL Low 3.9-4.9 [facility] Comment on above: Order Comment: Speci men Type: BLOOD SPECIMENOrdering Facility: [facility] Address: [address] [place] [address] Performed By: #### 2 4362-6 ####[facility] [id number] [place] [address] [place] Anion gap [Moles/Vol] 11 mmol/L Normal 8-15 [facility] Comment on above: Order Comment: Speci men Type: BLOOD SPECIMENOrdering Facility: [facility] Address: [address] [place] [address] Performed By: #### 2 4362-6 ####[facility] [id number] [place] [address] [place] Calcium [Mass/Vol] 8.9 mg/dL Normal 8.5-10.2 [facility] Comment on above: Order Comment: Speci men Type: BLOOD SPECIMENOrdering Facility: [facility] Address: [address] [place] [address] Performed By: #### 2 4362-6 ####[facility] [id number] [place] [address] [place] Chloride [Moles/Vol] 103 mmol/L Normal 98-107 [facility] Comment on above: Order Comment: Speci men Type: BLOOD SPECIMENOrdering Facility: [facility] Address: [address] [place] [address] Performed By: #### 2 4362-6 ####[facility]IA [id number] [place] [id number] [place] CO2 [Moles/Vol] 23 mmol/L Normal 22-30 [facility] Comment on above: Order Comment: Speci men Type: BLOOD SPECIMENOrdering Facility: [facility] Address: [address] [place] [id number] Performed By: #### 2 4362-6 ####[facility] [id number] [place] [address] [place] Creatinine [Mass/Vol] 0.91 mg/dL Normal 0.58-0.96 [facility] Comment on above: Order Comment: Speci men Type: BLOOD SPECIMENOrdering Facility: [facility] Address: [address] [place] [address] Performed By: #### 2 4362-6 ####[facility]IA [id number] [place] [address] [place] Creatinine and Glomerular filtration rate.predicted panel (S/P/Bld) 62 mL/min/1.73m??? Normal >=60 [facility] Comment on above: Order Comment: Samiri men Type: BLOOD SPECIMENOrdering Facility: [facility] Address: [address] [place] [address] Result Comment: Isa mated Glomerular Filtration Rate [...] actual GFR. Performed By: #### 2 4362-6 ####[facility]IA [id number] [place] [id number] [place] Glucose [Mass/Vol] 98 mg/dL Normal 74-99 [facility] Comment on above: Order Comment: Samiri men Type: BLOOD SPECIMENOrdering Facility: [facility] Address: [address] [place] [address] Result Comment: The [employer] Diabetes Association (ADA) provides guidance for cutoff [...] Standards of Medical Care in Diabetes 2016, [employer]. Diabetes Care. 2016.39(Suppl 1). Performed By: #### 2 4362-6 ####[facility]IA [id number] [place] [address] [place] Phosphate [Mass/Vol] 2.8 mg/dL Normal 2.7-4.8 [facility] Comment on above: Order Comment: Speci men Type: BLOOD SPECIMENOrdering Facility: [facility] Address: [address] [place] [address] Performed By: #### 2 4362-6 ####[facility] [id number] [place] [address] [place] Potassium [Moles/Vol] 3.6 mmol/L Low 3.7-5.1 [facility] Comment on above: Order Comment: Speci men Type: BLOOD SPECIMENOrdering Facility: [facility] Address: [address] [place] [address] Performed By: #### 2 4362-6 ####[facility]IA [id number] [place] [address] [place] Sodium [Moles/Vol] 137 mmol/L Normal 136-144 [facility] Comment on above: Order Comment: Speci men Type: BLOOD SPECIMENOrdering Facility: [facility] Address: [address] [place] [address] Performed By: #### 2 4362-6 ####[facility]IA [id number] [place] [address] [place] Urea nitrogen [Mass/Vol] 15 mg/dL Normal 7-21 [facility] Comment on above: Order Comment: Rhina mason Type: BLOOD SPECIMENOrdering Facility: [facility] Address: [address] [place] [address] Performed By: #### 2 4362-6 ####[facility]CLIA [id number] [address] [place] CASE MANAGEMon 07-10-2024 CASE MANAGEM HNO ID: [id number] Author: MYA HUGHES LSW Service: Social Work Author Type: Comic Illustrator Type: Care Mgt Progress Note Filed: 07/10/2024 14:42 Note Text: CARE MANAGEMENT PROGRESS NOTE SERVICE DATE: 07/10/2024 SERVICE TIME: 2:38 PM LOS: 3 days Post-Acute Discharge Planning Patient Goal(s): Increase strength [place] Explained: [place] Given: Yes Post-Acute Discharge Plan: [...] July 10, 2024 TIME: 2:38 PM Normal [facility] CBC panel Auto (Bld)on 07-10 Erythrocyte distribution width (RBC) [Ratio] 17.5 % High 11.5-15.0 [facility] Comment on above: Order Comment: Rhina mason Type: BLOOD SPECIMEN Ordering Facility: [facility] [place] Address: [address] [place] [address] Performed By: #### 2 276-4 #### [facility] CLIA [id number] [address] [place] [address] [place] Hematocrit (Bld) [Volume fraction] 31.7 % Low 36.0-46.0 [facility] Comment on above: Order Comment: Rhina masno Type: BLOOD SPECIMEN Ordering Facility: [facility] [place] Address: [address] [place] [address] Performed By: #### 2 276-4 #### [facility] CLIA [id number] [address] [place] [address] [place] Hemoglobin (Bld) [Mass/Vol] 9.9 g/dL Low 11.5-15.5 [facility] Comment on above: Order Comment: Speci men Type: BLOOD SPECIMEN Ordering Facility: [facility] [place] Address: [address] [place] [address] Performed By: #### 2 276-4 #### [facility] CLIA [id number] [address] [place] [address] [place] MCH (RBC) [Entitic mass] 26.0 pg Normal 26.0-34.0 [facility] Comment on above: Order Comment: Speci men Type: BLOOD SPECIMEN Ordering Facility: [facility] [place] Address: [address] [place] [address] Performed By: #### 2 276-4 #### [facility] CLIA [id number] [address] [place] [address] [place] MCHC (RBC) [Mass/Vol] 31.2 g/dL Normal 30.5-36.0 [facility] Comment on above: Order Comment: Speci men Type: BLOOD SPECIMEN Ordering Facility: [facility] [place] Address: [address] [place] [address] Performed By: #### 2 276-4 #### [facility] CLIA [id number] [address] [place] [address] [place] MCV (RBC) [Entitic vol] 83.2 fL Normal 80.0-100.0 [facility] Comment on above: Order Comment: Speci men Type: BLOOD SPECIMEN Ordering Facility: [facility] [place] Address: [address] [place] [address] Performed By: #### 2 276-4 #### [facility] CLIA [id number] [address] [place] [address] [place] Nucleated RBC (Bld) [#/Vol] 10*3/uL Normal <0.01 [facility] Comment on above: Order Comment: Speci men Type: BLOOD SPECIMEN Ordering Facility: [facility] [place] Address: [address] [place] [address] Performed By: #### 2 276-4 #### [facility] CLIA [id number] [address] [place] [address] [place] Platelet mean volume (Bld) [Entitic vol] 10.3 fL Normal 9.0-12.7 [facility] Comment on above: Order Comment: Speci men Type: BLOOD SPECIMEN Ordering Facility: [facility] [place] Address: [address] [place] [address] Performed By: #### 2 276-4 #### [facility] CLIA [id number] [address] [place] [address] [place] Platelets (Bld) [#/Vol] 336 10*3/uL Normal 150-400 [facility] Comment on above: Order Comment: Speci men Type: BLOOD SPECIMEN Ordering Facility: [facility] [place] Address: [address] [place] [address] Performed By: #### 2 276-4 #### [facility] CLIA [id number] [address] [place] [address] [place] RBC (Bld) [#/Vol] 3.81 10*6/uL Low 3.90-5.20 [facility] Comment on above: Order Comment: Speci men Type: BLOOD SPECIMEN Ordering Facility: [facility] [place] Address: [address] [place] [address] Performed By: #### 2 276-4 #### [facility] CLIA [id number] [address] [place] [address] [place] WBC (Bld) [#/Vol] 6.35 10*3/uL Normal 3.70-11.00 [facility] Comment on above: Order Comment: Speci men Type: BLOOD SPECIMEN Ordering Facility: [facility] [place] Address: [address] [place] [address] Performed By: #### 2 276-4 #### [facility] CLIA [id number] [address] [place] [address] [place] Renal function 2000 panelon 07-10-2024 Albumin [Mass/Vol] 3.5 g/dL Low 3.9-4.9 [facility] Comment on above: Order Comment: Speci men Type: BLOOD SPECIMEN Ordering Facility: [facility] Address: [address] [place] [address] Performed By: #### 2 4362-6 #### [facility] CLIA [id number] [address] [place] [address] [place] Anion gap [Moles/Vol] 12 mmol/L Normal 8-15 [facility] Comment on above: Order Comment: Speci men Type: BLOOD SPECIMEN Ordering Facility: [facility] Address: [address] [place] [address] Performed By: #### 2 4362-6 #### [facility] CLIA [id number] [address] [place] [address] [place] Calcium [Mass/Vol] 9.0 mg/dL Normal 8.5-10.2 [facility] Comment on above: Order Comment: Speci men Type: BLOOD SPECIMEN Ordering Facility: [facility] Address: [address] [place] [address] Performed By: #### 2 4362-6 #### [facility] CLIA [id number] [address] [place] [address] [place] Chloride [Moles/Vol] 104 mmol/L Normal 98-107 [facility] Comment on above: Order Comment: Speci men Type: BLOOD SPECIMEN Ordering Facility: [facility] Address: [address] [place] [address] Performed By: #### 2 4362-6 #### [facility] CLIA [id number] [address] [place], [place] [address] [place] CO2 [Moles/Vol] 22 mmol/L Normal 22-30 [facility] Comment on above: Order Comment: Speci men Type: BLOOD SPECIMEN Ordering Facility: [facility] Address: [address] [place] [address] Performed By: #### 2 4362-6 #### [facility] CLIA [id number] [address] [place] [address] [place] Creatinine [Mass/Vol] 0.93 mg/dL Normal 0.58-0.96 [facility] Comment on above: Order Comment: Speci men Type: BLOOD SPECIMEN Ordering Facility: [facility] Address: [address] [place] [address] Performed By: #### 2 4362-6 #### [facility] CLIA [id number] [address] [place] [address] [place] Creatinine and Glomerular filtration rate.predicted panel (S/P/Bld) 61 mL/min/1.73m??? Normal >=60 [facility] Comment on above: Order Comment: Speci men Type: BLOOD SPECIMEN Ordering Facility: [facility] Address: [address] [place] [address] Result Comment: Isa mated Glomerular Filtration Rate [...] GFR. Performed By: #### 2 4362-6 #### [facility] CLIA [id number] [address] [place] [address] [place] Glucose [Mass/Vol] 102 mg/dL High 74-99 [facility] Comment on above: Order Comment: Speci men Type: BLOOD SPECIMEN Ordering Facility: [facility] Address: [address] [place] [address] Result Comment: The [place] Diabetes Association (ADA) provides guidance for cutoff [...] Standards of Medical Care in Diabetes 2016, [place] Diabetes [employer]. Diabetes Care. 2016.39(Suppl 1). Performed By: #### 2 4362-6 #### [facility] CLIA [id number] [address] [place] [address] [place] Phosphate [Mass/Vol] 2.6 mg/dL Low 2.7-4.8 [facility] Comment on above: Order Comment: Speci men Type: BLOOD SPECIMEN Ordering Facility: [facility] Address: [address] [place] [address] Performed By: #### 2 4362-6 #### [facility] CLIA [id number] [address] [place] [address] [place] Potassium [Moles/Vol] 3.9 mmol/L Normal 3.7-5.1 [facility] Comment on above: Order Comment: Speci men Type: BLOOD SPECIMEN Ordering Facility: [facility] Address: [address] [place] [address] Performed By: #### 2 4362-6 #### [facility] CLIA [id number] [address] [place] [address] [place] Sodium [Moles/Vol] 138 mmol/L Normal 136-144 [facility] Comment on above: Order Comment: Speci men Type: BLOOD SPECIMEN Ordering Facility: [facility] Address: [address] [place] [address] Performed By: #### 2 4362-6 #### [facility] CLIA [id number] [address] [place] [address] [place] Urea nitrogen [Mass/Vol] 21 mg/dL Normal 7-21 [facility] Comment on above: Order Comment: Speci men Type: BLOOD SPECIMEN Ordering Facility: [facility] Address: [address] [place] [address] Performed By: #### 2 4362-6 #### [facility] CLIA [id number] [address] [place] [address] [place] THERAPY NTon 07-10-2024 THERAPY NT HNO ID: [id number] Author: SANTIAGO GUZMAN OT/L Service: Occupational Therapy Author Type: Occupational Therapist Type: Therapy (PT/OT/Speech/Resp) Filed: 07/10/2024 10:00 Note Text: Occupational Therapy Evaluation Summary SERVICE DATE: 07/10/2024 SERVICE TIME: 0840 to 0920 ROOM: [place] [address] OT 6 Clicks Score: 15 DISCHARGE RECOMMENDATIONS [...] shadows 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 SNF rec at this time pending [...] (generalized) TREATMENT INTERVENTIONS Evaluation, Self Mcfp Management (53427) Timed Code Treatment (minutes): 25 Skilled Treatment [...] Sit to Stand, Standing Balance to Improve [place] with ADLs/Self-Care, Sitting Balance to Improve [place] with ADLs/Self-Care, Life Roles/Routines/Habits THERAPEUTIC SKILLS USED Therapeutic Use of Self, Physical Assist, Movement Facilitation, Management of Critical Lines, Tubes and/or Drains FUNCTIONAL STATUS Activities of Daily Living Assist Level Additional Information Feeding Minimal Assistance Grooming Moderate Assistance Bathing Upper Body Minimal Assistance Bathing Lower Body Ma (more content not included)... Normal [facility] CBC panel Auto (Bld)on 07-09 Erythrocyte distribution width (RBC) [Ratio] 17.7 % High 11.5-15.0 [facility] Comment on above: Order Comment: Speci isabella Type: BLOOD SPECIMEN Ordering Facility: [facility] Address: [address] [place] [address] Performed By: #### 2 4362-6 #### [facility] CLIA [id number] [address] [place] [address] [place] Hematocrit (Bld) [Volume fraction] 33.9 % Low 36.0-46.0 [facility] Comment on above: Order Comment: Rhina mason Type: BLOOD SPECIMEN Ordering Facility: [facility] Address: [address] [place] [address] Performed By: #### 2 4362-6 #### [facility] CLIA [id number] [address] [place] [address] [place] Hemoglobin (Bld) [Mass/Vol] 10.5 g/dL Low 11.5-15.5 [facility] Comment on above: Order Comment: Samiri men Type: BLOOD SPECIMEN Ordering Facility: [facility] Address: [address] [place] [address] Performed By: #### 2 4362-6 #### [facility] CLIA [id number] [address] [place] [address] [place] MCH (RBC) [Entitic mass] 26.6 pg Normal 26.0-34.0 [facility] Comment on above: Order Comment: Speci men Type: BLOOD SPECIMEN Ordering Facility: [facility] Address: [address] [place] [address] Performed By: #### 2 4362-6 #### [facility] CLIA [id number] [address] [place] [address] [place] MCHC (RBC) [Mass/Vol] 31.0 g/dL Normal 30.5-36.0 [facility] Comment on above: Order Comment: Speci men Type: BLOOD SPECIMEN Ordering Facility: [facility] Address: [address] [place] [address] Performed By: #### 2 4362-6 #### [facility] CLIA [id number] [address] [place] [address] [place] MCV (RBC) [Entitic vol] 86.0 fL Normal 80.0-100.0 [facility] Comment on above: Order Comment: Speci men Type: BLOOD SPECIMEN [facility] [facility] Address: [address] [place] [address] Performed By: #### 2 4362-6 #### [facility] CLIA [id number] [address] [place] [address] [place] Nucleated RBC (Bld) [#/Vol] 10*3/uL Normal <0.01 [facility] Comment on above: Order Comment: Speci men Type: BLOOD SPECIMEN Ordering Facility: [facility] Address: [address] [place] [address] Performed By: #### 2 4362-6 #### [facility] CLIA [id number] [address] [place] [address] [place] Platelet mean volume (Bld) [Entitic vol] 10.4 fL Normal 9.0-12.7 [facility] Comment on above: Order Comment: Speci men Type: BLOOD SPECIMEN Ordering Facility: [facility] Address: [address] [place] [address] Performed By: #### 2 4362-6 #### [facility] CLIA [id number] [address] [place] [address] [place] Platelets (Bld) [#/Vol] 346 10*3/uL Normal 150-400 [facility] Comment on above: Order Comment: Speci men Type: BLOOD SPECIMEN Ordering Facility: [facility] Address: [address] [place] [address] Performed By: #### 2 4362-6 #### [facility] CLIA [id number] [address] [place] [address] [place] RBC (Bld) [#/Vol] 3.94 10*6/uL Normal 3.90-5.20 [facility] Comment on above: Order Comment: Speci men Type: BLOOD SPECIMEN Ordering Facility: [facility] Address: [address] [place] [address] Performed By: #### 2 4362-6 #### [facility] CLIA [id number] [address] [place] [address] [place] WBC (Bld) [#/Vol] 8.22 10*3/uL Normal 3.70-11.00 [facility] Comment on above: Order Comment: Speci men Type: BLOOD SPECIMEN Ordering Facility: [facility] Address: [address] [place] [address] Performed By: #### 2 4362-6 #### [facility] CLIA [id number] [address] [place] [address] [place] Renal function 2000 panelon 07-09-2024 Albumin [Mass/Vol] 3.6 g/dL Low 3.9-4.9 [facility] Comment on above: Order Comment: Speci men Type: BLOOD SPECIMEN Ordering Facility: [facility] Address: [address] [place] [address] Performed By: #### 2 4362-6 #### [facility] CLIA [id number] [address] [address] [place] Anion gap [Moles/Vol] 11 mmol/L Normal 8-15 [facility] Comment on above: Order Comment: Speci men Type: BLOOD SPECIMEN Ordering Facility: [facility] Address: [address] [place], [place] [address] Performed By: #### 2 4362-6 #### [facility] CLIA [id number] [address] [place] [address] [place] Calcium [Mass/Vol] 8.8 mg/dL Normal 8.5-10.2 [facility] Comment on above: Order Comment: Speci men Type: BLOOD SPECIMEN Ordering Facility: [facility] Address: [address] [place] [address] Performed By: #### 2 4362-6 #### [facility] CLIA [id number] [address] [place], [place] [address] [place] Chloride [Moles/Vol] 103 mmol/L Normal 98-107 [facility] Comment on above: Order Comment: Speci men Type: BLOOD SPECIMEN Ordering Facility: [facility] Address: [address] [place], [place] [address] Performed By: #### 2 4362-6 #### [facility] CLIA [id number] [address] [place], [place] [address] [place] CO2 [Moles/Vol] 22 mmol/L Normal 22-30 [facility] Comment on above: Order Comment: Speci men Type: BLOOD SPECIMEN Ordering Facility: [facility] Address: [address] [place], [place] [address] Performed By: #### 2 4362-6 #### [facility] CLIA [id number] [address] [place], [place] [address] [place] Creatinine [Mass/Vol] 0.94 mg/dL Normal 0.58-0.96 [facility] Comment on above: Order Comment: Rhina mason Type: BLOOD SPECIMEN Ordering Facility: [facility] Address: [address] [place] [address] Performed By: #### 2 4362-6 #### [facility] CLIA [id number] [address] [place] [address] [place] Creatinine and Glomerular filtration rate.predicted panel (S/P/Bld) 60 mL/min/1.73m??? Normal >=60 [facility] Comment on above: Order Comment: Rhina mason Type: BLOOD SPECIMEN Ordering Facility: [facility] Address: [address] [place] [address] Result Comment: Isa mated Glomerular Filtration Rate [...] GFR. Performed By: #### 2 4362-6 #### [facility] CLIA [id number] [address] [place] [address] [place] Glucose [Mass/Vol] 158 mg/dL High 74-99 [facility] Comment on above: Order Comment: Rhina mason Type: BLOOD SPECIMEN Ordering Facility: [facility] Address: [address] [place] [address] Result Comment: The [place] Diabetes Association (ADA) provides guidance for cutoff [...] Standards of Medical Care in Diabetes 2016, [place] Diabetes Association. Diabetes Care. 2016.39(Suppl 1). Performed By: #### 2 4362-6 #### [facility] CLIA [id number] [address] [place] [address] [place] Phosphate [Mass/Vol] 2.0 mg/dL Low 2.7-4.8 [facility] Comment on above: Order Comment: Speci men Type: BLOOD SPECIMEN Ordering Facility: [facility] Address: [address] [place] [address] Performed By: #### 2 4362-6 #### [facility] CLIA [id number] [address] [place] [address] [place] Potassium [Moles/Vol] 4.1 mmol/L Normal 3.7-5.1 [facility] Comment on above: Order Comment: Speci men Type: BLOOD SPECIMEN Ordering Facility: [facility] Address: [address] [place] [address] Performed By: #### 2 4362-6 #### [facility] CLIA [id number] [address] [place] [address] [place] Sodium [Moles/Vol] 136 mmol/L Normal 136-144 [facility] Comment on above: Order Comment: Speci men Type: BLOOD SPECIMEN Ordering Facility: [facility] Address: [address] [place] [address] Performed By: #### 2 4362-6 #### [facility] CLIA [id number] [address] [place] [address] [place] Urea nitrogen [Mass/Vol] 18 mg/dL Normal 7-21 [facility] Comment on above: Order Comment: Speci men Type: BLOOD SPECIMEN Ordering Facility: [facility] Address: [address] [place] [address] Performed By: #### 2 4362-6 #### [facility] CLIA [id number] [address] [place] [address] [place] CONSULTon 12-22-2024 CONSULT HNO ID: [id number] Author: JARED GILMORE MD Service: Ophthalmology Author [...] Mon-Tue, 7 am - 5 pm, page [phone] Mon-Tue, 5 pm - 7 am, page [phone] Weekends (Fri 5 pm to Mon 7 am), page [phone] EXAM: Base Eye Exam Visual Acuity Right Left Dist sc CF at 3' Tonometry (Applanation, 8:30 AM) Right Left Pressure 14 Pupils Dark Light Shape React Right 6 (more content not included)... Normal [facility] [id number] 07-07-2024 [id number] Normal [facility] BASIC METABOLIC PANELon - Anion gap [Moles/Vol] 4 mmol/L Normal 3-13 [facility] Comment on above: Performed By: #### L AB15 ####Crabber: VELMA VALADEZ ([phone])[facility])[address] [place] [address] Calcium [Mass/Vol] 8.7 mg/dL Low 8.8-10.0 [facility] Comment on above: Performed By: #### L AB15 ####Crabber: VELMA VALADEZ ([phone])[facility])[address] [place] [address] Chloride [Moles/Vol] 111 mmol/L High 98-107 [facility] Comment on above: Performed By: #### L AB15 ####Crabber: VELMA VALADEZ ([phone])[facility])[address] [place] [address] CO2 [Moles/Vol] 23 mmol/L Normal 23-31 [facility] Comment on above: Performed By: #### L AB15 ####Crabber: VELMA VALADEZ ([phone])[facility])[address] [place] [address] Creatinine [Mass/Vol] 0.84 mg/dL Normal 0.57-1.11 [facility] Comment on above: Performed By: #### L AB15 ####Crabber: VELMA VALADEZ ([phone])[facility])[address] [place] [address] GLOMERULAR FILTRATION RATE ML/MIN/1.73 SQ M.PREDICTED 68.6 mL/min/1.73m*2 Normal >60.0 [facility] Comment on above: Result Comment: Calc ulation based on the Chronic Kidney Disease Epidemiology Collaboration (CKD-EPI) equation refit without adjustment for race Performed By: #### L AB15 ####Crabber: VELMA VALADEZ ([phone])[facility])[address] [place] [address] Glucose [Mass/Vol] 102 mg/dL Normal 82-115 [facility] Comment on above: Performed By: #### L AB15 ####Crabber: VELMA VALADEZ ([phone])[facility])[address] [place] [address] Potassium [Moles/Vol] 4.0 mmol/L Normal 3.5-5.1 [facility] Comment on above: Result Comment: [facility] potassium values may be up to 0.5 mmol/L lower than serum values. Performed By: #### L AB15 ####Crabber: VELMA VALADEZ ([phone])[facility])[address] [place] [address] Sodium [Moles/Vol] 138 mmol/L Normal 136-145 [facility] Comment on above: Performed By: #### L AB15 ####Crabber: VELMA VALADEZ ([phone])[facility])[address] [place] [address] Urea nitrogen [Mass/Vol] 19 mg/dL Normal 9-23 [facility] [employer] [facility] Comment on above: Performed By: #### L AB15 ####Crabber: VELMA VALADEZ ([phone])[facility])[address] [place] [address] Basic metabolic 1998 panelon 07-07-2024 Anion gap [Moles/Vol] 4 mmol/L 3 - 13 mmol/L [facility] [employer] Calcium [Mass/Vol] 8.7 mg/dL Low 8.8 - 10. 0 mg/dL [facility] [employer] Chloride [Moles/Vol] 111 mmol/L High 98 - 10 7 mmol/L [facility] [employer] CO2 [Moles/Vol] 23 mmol/L 23 - 31 mmol/L [facility] [employer] Creatinine [Mass/Vol] 0.84 mg/dL 0.57 - 1.11 mg/dL [facility] [employer] GFR/1.73 sq M.predicted (S/P/Bld) [Vol rate/Area] 68.6 mL/min - PINF [facility] [employer] Comment on above: Calculation based on the Chronic Kidney Disease Epidemiology Collaboration (CKD-EPI) equation refit without adjustment for race Glucose [Mass/Vol] 102 mg/dL 82 - 115 mg/dL [facility] Interpretation and review of laboratory results Abnormal [facility] Potassium [Moles/Vol] 4 mmol/L 3.5 - 5.1 mmol/L [facility] Comment on above: Plasma potassium chris ues may be up to 0.5 mmol/L lower than serum values. Sodium [Moles/Vol] 138 mmol/L 136 - 145 mmol/L [facility] [employer] Urea nitrogen [Mass/Vol] 19 mg/dL 9 - 23 mg/dL [facility] CBC W Auto Differential pane l (Bld)Ordered By: Devika Eisenberg on 07-07-2024 Basophils (Bld) [#/Vol] 0 10*3/uL 0.0 - 0.2 10*3/uL [facility] [employer] Basophils/100 WBC (Bld) 0.4 % 0.0 - 2.0 % [facility] Eosinophils (Bld) [#/Vol] 0.1 10*3/uL 0.0 - 0.5 10*3/uL [facility] Eosinophils/100 WBC (Bld) 1.3 % 0.0 - 6.0 % [facility] Erythrocyte distribution width (RBC) [Ratio] 17.6 % High 11.5 - 15.0 % [facility] Hematocrit (Bld) [Volume fraction] 29.9 % Low 35.0 - 47.0 % [facility] Hemoglobin (Bld) [Mass/Vol] 9.1 g/dL Low 11.7 - 16.0 g/dL [facility] Immature granulocytes (Bld) [#/Vol] 0 10*3/uL NINF - 0.1 10*3/uL [facility] Immature granulocytes/100 WBC (Bld) 0.2 % 0.0 - 2.0 % [facility] Interpretation and review of laboratory results Abnormal [facility] Lymphocytes (Bld) [#/Vol] 1.2 10*3/uL 1.0 - 4.3 10*3/uL [facility] Lymphocytes/100 WBC (Bld) 22 % 15.0 - 45.0 % [facility] MCH (RBC) [Entitic mass] 25.9 pg Low 26.0 - 34.0 pg [facility] MCHC (RBC) [Mass/Vol] 30.4 % Low 30.5 - 36.0 % [facility] MCV (RBC) [Entitic vol] 84.9 fL 77.0 - 99.0 fL [facility] Monocytes (Bld) [#/Vol] 0.6 10*3/uL 0.0 - 0.9 10*3/uL [facility] Monocytes/100 WBC (Bld) 10 % 5.0 - 13.0 % [facility] Neutrophils (Bld) [#/Vol] 3.7 10*3/uL 1.8 - 7.5 10*3/uL [facility] Neutrophils/100 WBC (Bld) 66.1 % 38.0 - 82.0 % [facility] Nucleated RBC/100 WBC (Bld) [Ratio] 0 % [facility] Platelet mean volume (Bld) [Entitic vol] 9.8 fL 9.0 - 12.7 fL [facility] Platelets (Bld) [#/Vol] 301 10*3/uL 140 - 440 10*3/uL [facility] RBC (Bld) [#/Vol] 3.52 10*6/uL Low 3.80 - 5.2 0 10*6/uL [facility] WBC (Bld) [#/Vol] 5.6 10*3/uL 3.6 - 10.7 10*3/uL [facility] CBC WITH AUTO DIFFERENTIALon 07-07-2024 Basophils (Bld) [#/Vol] 0.0 10*3/uL Normal 0.0-0.2 [facility] Comment on above: Performed By: #### L [id number] ####Crabber: VELMA VALADEZ ([phone])[facility])[address] [place] [address] Basophils/100 WBC (Bld) 0.4 % Normal 0.0-2.0 [facility] Comment on above: Performed By: #### L [id number] ####Crabber: VELMA VALADEZ ([phone])[facility])[address] [place] [address] Eosinophils (Bld) [#/Vol] 0.1 10*3/uL Normal 0.0-0.5 [facility] Comment on above: Performed By: #### L [id number] ####Crabber: VELMA VALADEZ ([phone])[facility])[address] [place] [address] Eosinophils/100 WBC (Bld) 1.3 % Normal 0.0-6.0 [facility] Comment on above: Performed By: #### L [id number] ####Crabber: VELMA VALADEZ ([phone])[facility])[address] [place] [address] Erythrocyte distribution width (RBC) [Ratio] 17.6 % High 11.5-15.0 [facility] Comment on above: Performed By: #### L [id number] ####Crabber: VELMA VALADEZ ([phone])[facility])[address] [place] [address] Hematocrit (Bld) [Volume fraction] 29.9 % Low 35.0-47.0 [facility] Comment on above: Performed By: #### L [id number] ####Crabber: VELMA VALADEZ ([phone])[facility])[address] [place] [address] Hemoglobin (Bld) [Mass/Vol] 9.1 g/dL Low 11.7-16.0 [facility] Comment on above: Performed By: #### L [id number] ####Crabber: VELMA VALADEZ ([phone])[facility])[address] [place] [address] IMMATURE GRANS % 0.2 % Normal 0.0-2.0 [facility] Comment on above: Performed By: #### L [id number] ####Crabber: VELMA VALADEZ ([id number])[facility])[address] [place] [address] IMMATURE GRANS ABSOLUTE 0.0 10*3/uL Normal <0.1 [facility] Comment on above: Performed By: #### L [id number] ####Crabber: VELMA VALADEZ ([phone])[facility])[address] [place] [address] Lymphocytes (Bld) [#/Vol] 1.2 10*3/uL Normal 1.0-4.3 [facility] Comment on above: Performed By: #### L [id number] ####Crabber: VELMA VALADEZ ([phone])[facility])[address] [place] [address] Lymphocytes/100 WBC (Bld) 22.0 % Normal 15.0-45.0 [facility] Comment on above: Performed By: #### L [id number] ####Crabber: VELMA VALADEZ ([phone])[facility])[address] [place] [address] MCH (RBC) [Entitic mass] 25.9 pg Low 26.0-34.0 [facility] Comment on above: Performed By: #### L [id number] ####Crabber: VELMA VALADEZ ([id number])[facility])[address] [place] [address] MCHC 30.4 % Low 30.5-36.0 [facility] Comment on above: Performed By: #### L [id number] ####Crabber: VELMA VALADEZ ([phone])[facility])[address] [place] [address] MCV (RBC) [Entitic vol] 84.9 fL Normal 77.0-99.0 [facility] Comment on above: Performed By: #### L [id number] ####Crabber: VELMA VALADEZ ([phone])[facility])[address] [place] [address] Monocytes (Bld) [#/Vol] 0.6 10*3/uL Normal 0.0-0.9 [facility] Comment on above: Performed By: #### L [id number] ####Crabber: VELMA VALADEZ ([phone])[facility])[address] [place] [address] Monocytes/100 WBC (Bld) 10.0 % Normal 5.0-13.0 [facility] Comment on above: Performed By: #### L [id number] ####Crabber: VELMA VALADEZ ([phone])[facility])[address] [place] [address] NEUTROPHILS ABSOLUTE 3.7 10*3/uL Normal 1.8-7.5 [facility] Comment on above: Performed By: #### L [id number] ####Crabber: VELMA VALADEZ ([phone])[facility])[address] [place] [address] Neutrophils/100 WBC (Bld) 66.1 % Normal 38.0-82.0 [facility] Comment on above: Performed By: #### L [id number] ####Crabber: VELMA [id number])[facility])[address] [place] [address] NRBC 0.0 /100 WBCs Normal 0.0-2.0 [facility] Comment on above: Performed By: #### L [id number] ####Crabber: VELMA VALADEZ ([phone])[facility])[address] [place] [address] Platelet mean volume (Bld) [Entitic vol] 9.8 fL Normal 9.0-12.7 [facility] Comment on above: Performed By: #### L [id number] ####Crabber: VELMA VALADEZ ([phone])[facility])[address] [place] [address] Platelets (Bld) [#/Vol] 301 10*3/uL Normal 140-440 [facility] Comment on above: Performed By: #### L [id number] ####Crabber: VELMA VALADEZ ([phone])[facility])[address] [place] [address] RBC (Bld) [#/Vol] 3.52 10*6/uL Low 3.80-5.20 [facility] Comment on above: Performed By: #### L [id number] ####Crabber: VELMA VALADEZ ([phone])[facility])[address] [place] [address] WBC (Bld) [#/Vol] 5.6 10*3/uL Normal 3.6-10.7 [facility] Comment on above: Performed By: #### L [id number] ####Crabber: VELMA VALADEZ ([phone])[facility])[address] [place] [address] CBC panel Auto (Bld)on 07-07 Erythrocyte distribution width (RBC) [Ratio] 17.5 % High 11.5-15.0 [facility] Comment on above: Order Comment: Speci men Type: BLOOD SPECIMEN Ordering Facility: [facility] Address: [address] [place] [address] Performed By: #### 2 4362-6 #### [facility] CLIA [id number] [address] [place] [address] [place] Hematocrit (Bld) [Volume fraction] 32.7 % Low 36.0-46.0 [facility] Comment on above: Order Comment: Speci men Type: BLOOD SPECIMEN Ordering Facility: [facility] Address: [address] [place] [address] Performed By: #### 2 4362-6 #### [facility] CLIA [id number] [address] [place] [address] [place] Hemoglobin (Bld) [Mass/Vol] 10.2 g/dL Low 11.5-15.5 [facility] Comment on above: Order Comment: Speci men Type: BLOOD SPECIMEN Ordering Facility: [facility] Address: [address] [place] [address] Performed By: #### 2 4362-6 #### [facility] CLIA [id number] [address] [place] [address] [place] MCH (RBC) [Entitic mass] 26.8 pg Normal 26.0-34.0 [facility] Comment on above: Order Comment: Speci men Type: BLOOD SPECIMEN Ordering Facility: [facility] Address: [address] [place] [address] Performed By: #### 2 4362-6 #### [facility] CLIA [id number] [address] [place] [address] [place] MCHC (RBC) [Mass/Vol] 31.2 g/dL Normal 30.5-36.0 [facility] Comment on above: Order Comment: Speci men Type: BLOOD SPECIMEN Ordering Facility: [facility] Address: [address] [place] [address] Performed By: #### 2 4362-6 #### [facility] CLIA [id number] [address] [place] [address] [place] MCV (RBC) [Entitic vol] 86.1 fL Normal 80.0-100.0 [facility] Comment on above: Order Comment: Speci men Type: BLOOD SPECIMEN Ordering Facility: [facility] Address: [address] [place] [address] Performed By: #### 2 4362-6 #### [facility] CLIA [id number] [address] [place] [address] [place] Nucleated RBC (Bld) [#/Vol] 10*3/uL Normal <0.01 [facility] Comment on above: Order Comment: Speci men Type: BLOOD SPECIMEN Ordering Facility: [facility] Address: [address] [place] [address] Performed By: #### 2 4362-6 #### [facility] CLIA [id number] [address] [place] [address] [place] Platelet mean volume (Bld) [Entitic vol] 9.8 fL Normal 9.0-12.7 [facility] Comment on above: Order Comment: Speci men Type: BLOOD SPECIMEN Ordering Facility: [facility] Address: [address] [place] [address] Performed By: #### 2 4362-6 #### [facility] CLIA [id number] [address] [place] [address] [place] Platelets (Bld) [#/Vol] 284 10*3/uL Normal 150-400 [facility] Comment on above: Order Comment: Speci men Type: BLOOD SPECIMEN Ordering Facility: [facility] Address: [address] [place] [address] Performed By: #### 2 4362-6 #### [facility] CLIA [id number] [address] [place] [address] [place] RBC (Bld) [#/Vol] 3.80 10*6/uL Low 3.90-5.20 [facility] Comment on above: Order Comment: Speci men Type: BLOOD SPECIMEN Ordering Facility: [facility] Address: [address] [place] [address] Performed By: #### 2 4362-6 #### [facility] CLIA [id number] [address] [place], [place] [id number] [place] [address] [place] WBC (Bld) [#/Vol] 5.72 10*3/uL Normal 3.70-11.00 [facility] Comment on above: Order Comment: Speci men Type: BLOOD SPECIMEN Ordering Facility: [facility] Address: [address] [place] [address] Performed By: #### 2 4362-6 #### [facility] CLIA [id number] [address] [place] [address] [place] ORBITS WO IVCONon -21-[address] ORBITS WO IVCON * * *Final Report* * * DATE OF EXAM: Jul 07 2024 8:21PM [facility] [place] WO IVCON / [...] changes. Unchanged appearance of left globe/phthisis bulbi. Research Environmental Scientist: PSCB Transcribe Date/Time: Jul 07 2024 8:24P Dictated by : ULICES LEBLANC MD This examination was interpreted and the report reviewed and electronically signed by: DE JAIN MD on Jul 07 2024 9:18PM EST [id number] Normal [facility] HISTORY PHYSICALon HISTORY PHYSICAL HNO ID: [id number] Author: FELICIA LEVY MD Service: General Internal [...] 3pm to 7am): Please page on-call resident [phone] (Jonathan Chaudhry Subjective CHIEF COMPLAINT: Acute angle closure glaucoma HPI: Mel Castillo is a 83 year old female with a PMH of COPD, HTN, Afib (on Lovenox), CKD Stage 3, L retinal detachment, recurrent embolic events, and 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 She was subsequently taken by the cream tester for peripheral iridotomy's, which helped to reduce elevated intraocular pressure down to 10.2 mmHg in the R eye. Furthermore, was evaluated by stroke team at [place] who reviewed her images and believed her headache and severe vision loss was secondary to the acute closure glaucoma and not stroke. Ultimately, it was determined that due to vision now being reduced to only one eye she required retinal specialist at [place] for repair of acute retinal detachment on [...] of breath., Disp: , Rfl: , 07/06/2024 uiiskybrvwy-gcvryopxq-a ilanter (TRELEGY ELLIPTA) 100-62.5-25 mcg inhalation powder, Inhale 1 (more content not included)... Normal [facility] NURSING PROGon 07-07-2024 NURSING PROG HNO ID: [id number] Author: SONNY CASTILLO, RADHA Service: Nursing Author [...] notify nurse if she experiences pain. Normal [facility] NURSING PROG HNO ID: [id number] Author: WINIFRED HILLS, RADHA Service: ? Author Type: Registered Nurse Type: Nursing Progress Note Filed: 07/07/2024 12:15 Note Text: Transfer Note: PATIENT NAME: Mel Castillo Patient Location: [place] [address]258/60-31 Room: [place] [address] Patient transferred into room/unit H60-31 in stable condition. Actions taken: Team notified. Patient belongings with patient. Pt oriented to the floor policy and fall prevention protocol. Call light within reach. Normal [facility] Nursing Noteon 07-07-2024 Nursing Note Report called to [facility]. Normal [facility] Progress Noteon 07-07-2024 Progress Note Nutrition rescreen completed. Chart reviewed. Patient to be monitored and followed by the diet repair technician. Normal [facility] Renal function 2000 panelon 07-07-2024 Albumin [Mass/Vol] 3.7 g/dL Low 3.9-4.9 [facility] Comment on above: Order Comment: Speci men Type: BLOOD SPECIMEN Ordering Facility: [facility] Address: [address] [place] [address] Performed By: #### 2 4362-6 #### [facility] CLIA [id number] [address] [place] [address] [place] Anion gap [Moles/Vol] 12 mmol/L Normal 8-15 [facility] Comment on above: Order Comment: Speci men Type: BLOOD SPECIMEN Ordering Facility: [facility] Address: [address] [place] [address] Performed By: #### 2 4362-6 #### [facility] CLIA [id number] [address] [place] [address] [place] Calcium [Mass/Vol] 9.2 mg/dL Normal 8.5-10.2 [facility] Comment on above: Order Comment: Speci men Type: BLOOD SPECIMEN Ordering Facility: [facility] Address: [address] [place] [address] Performed By: #### 2 4362-6 #### [facility] CLIA [id number] [address] [place] [address] [place] Chloride [Moles/Vol] 107 mmol/L Normal 98-107 [facility] Comment on above: Order Comment: Speci men Type: BLOOD SPECIMEN Ordering Facility: [facility] Address: [address] [place] [address] Performed By: #### 2 4362-6 #### [facility] CLIA [id number] [address] [place] [address] [place] CO2 [Moles/Vol] 20 mmol/L Low 22-30 [facility] Comment on above: Order Comment: Speci men Type: BLOOD SPECIMEN Ordering Facility: [facility] Address: [address] [place] [address] Performed By: #### 2 4362-6 #### [facility] CLIA [id number] [address] [place] [address] [place] Creatinine [Mass/Vol] 0.82 mg/dL Normal 0.58-0.96 [facility] Comment on above: Order Comment: Speci men Type: BLOOD SPECIMEN Ordering Facility: [facility] Address: [address] [place] [address] Performed By: #### 2 4362-6 #### [facility] CLIA [id number] [address] [place] [address] [place] Creatinine and Glomerular filtration rate.predicted panel (S/P/Bld) 71 mL/min/1.73m??? Normal >=60 [facility] Comment on above: Order Comment: Rhina mason Type: BLOOD SPECIMEN Ordering Facility: [facility] Address: [address] [place] [address] Result Comment: Isa mated Glomerular Filtration Rate [...] GFR. Performed By: #### 2 4362-6 #### [facility] CLIA [id number] [address] [place] [address] [place] Glucose [Mass/Vol] 106 mg/dL High 74-99 [facility] Comment on above: Order Comment: Rhina mason Type: BLOOD SPECIMEN Ordering Facility: [facility] Address: [address] [place] [address] Result Comment: The [place] Diabetes Association (ADA) provides guidance for cutoff [...] Standards of Medical Care in Diabetes 2016, [place] Diabetes Association. Diabetes Care. 2016.39(Suppl 1). Performed By: #### 2 4362-6 #### [facility] CLIA [id number] [address] [place] [address] [place] Phosphate [Mass/Vol] 3.0 mg/dL Normal 2.7-4.8 [facility] Comment on above: Order Comment: Speci men Type: BLOOD SPECIMEN Ordering Facility: [facility] Address: [address] [place], [place] [address] Performed By: #### 2 4362-6 #### [facility] CLIA [id number] [address] [place], [place] [id number] [place] Potassium [Moles/Vol] 4.3 mmol/L Normal 3.7-5.1 [facility] Comment on above: Order Comment: Speci men Type: BLOOD SPECIMEN Ordering Facility: [facility] Address: [address] [place] [address] Performed By: #### 2 4362-6 #### [facility] CLIA [id number] [address] [place] [address] [place] Sodium [Moles/Vol] 139 mmol/L Normal 136-144 [facility] Comment on above: Order Comment: Speci men Type: BLOOD SPECIMEN Ordering Facility: [facility] Address: [address] [place], [place] [address] Performed By: #### 2 4362-6 #### [facility] CLIA [id number] [address] [place], [place] [address] [place] Urea nitrogen [Mass/Vol] 16 mg/dL Normal 7-21 [facility] Comment on above: Order Comment: Speci men Type: BLOOD SPECIMEN Ordering Facility: [facility] Address: [address] [place], [place] [address] Performed By: #### 2 4362-6 #### [facility] CLIA [id number] [address] [place], [place] [address] [place] [id number] 07-06-2024 [id number] Normal [facility] BASIC METABOLIC PANELon 12-2 0-2023 Anion gap [Moles/Vol] 9 mmol/L Normal 3-13 [facility] Comment on above: Performed By: #### L AB15 ####Crabber: VELMA VALADEZ ([phone])[facility] [place] [address] Calcium [Mass/Vol] 8.9 mg/dL Normal 8.8-10.0 [facility] Comment on above: Performed By: #### L AB15 ####Crabber: VELMA VALADEZ ([phone])[facility] [place] [address] Chloride [Moles/Vol] 113 mmol/L High 98-107 [facility] Comment on above: Performed By: #### L AB15 ####Crabber: VELMA VALADEZ ([id number])[facility] [place] [address] CO2 [Moles/Vol] 18 mmol/L Low 23-31 [facility] Comment on above: Performed By: #### L AB15 ####Crabber: VELMA VALADEZ ([phone])[facility] [place] [address] Creatinine [Mass/Vol] 0.86 mg/dL Normal 0.57-1.11 [facility] Comment on above: Performed By: #### L AB15 ####Crabber: VELMA VALADEZ ([phone])[facility] ([facility])[address] [place] [address] GLOMERULAR FILTRATION RATE ML/MIN/1.73 SQ M.PREDICTED 66.7 mL/min/1.73m*2 Normal >60.0 [facility] Comment on above: Result Comment: Calc ulation based on the Chronic Kidney Disease Epidemiology Collaboration (CKD-EPI) equation refit without adjustment for race Performed By: #### L AB15 ####Crabber: VELMA VALADEZ ([id number])[facility] [place] [address] [place] Glucose [Mass/Vol] 74 mg/dL Low 82-115 [facility] Comment on above: Performed By: #### L AB15 ####Crabber: VELMA VALADEZ ([phone])[facility] ([facility])[address] [place] [address] Potassium [Moles/Vol] 4.5 mmol/L Normal 3.5-5.1 [facility] Comment on above: Result Comment: [facility] potassium values may be up to 0.5 mmol/L lower than serum values. Performed By: #### L AB15 ####Crabber: VELMA VALADEZ ([phone])[facility] ([facility])[address] [place] [address] Sodium [Moles/Vol] 140 mmol/L Normal 136-145 [facility] Comment on above: Performed By: #### L AB15 ####Crabber: VELMA VALADEZ ([id number])[facility] ([facility])[address] [place] [address] Urea nitrogen [Mass/Vol] 16 mg/dL Normal 9-23 [facility] Comment on above: Performed By: #### L AB15 ####Crabber: VELMA VALADEZ ([id number])[facility] ([facility])[address] [place] [address] Basic metabolic 1998 panelon 07-06-2024 Anion gap [Moles/Vol] 9 mmol/L 3 - 13 mmol/L [facility] Calcium [Mass/Vol] 8.9 mg/dL 8.8 - 10. 0 mg/dL [facility] Chloride [Moles/Vol] 113 mmol/L High 98 - 10 7 mmol/L [facility] CO2 [Moles/Vol] 18 mmol/L Low 23 - 31 mmol/L [facility] Creatinine [Mass/Vol] 0.86 mg/dL 0.57 - 1.11 mg/dL [facility] GFR/1.73 sq M.predicted (S/P/Bld) [Vol rate/Area] 66.7 mL/min - PINF [facility] Comment on above: Calculation based on the Chronic Kidney Disease Epidemiology Collaboration (CKD-EPI) equation refit without adjustment for race Glucose [Mass/Vol] 74 mg/dL Low 82 - 115 mg/dL [facility] Interpretation and review of laboratory results Abnormal [facility] Potassium [Moles/Vol] 4.5 mmol/L 3.5 - 5.1 mmol/L [facility] Comment on above: Plasma potassium chris ues may be up to 0.5 mmol/L lower than serum values. Sodium [Moles/Vol] 140 mmol/L 136 - 145 mmol/L [facility] Urea nitrogen [Mass/Vol] 16 mg/dL 9 - 23 mg/dL [facility] CBC W Auto Differential pane l (Bld)Ordered By: Daija Doran on 07-06-2024 Basophils (Bld) [#/Vol] 0 10*3/uL 0.0 - 0.2 10*3/uL [facility] Basophils/100 WBC (Bld) 0.5 % 0.0 - 2.0 % [facility] Eosinophils (Bld) [#/Vol] 0 10*3/uL 0.0 - 0.5 10*3/uL [facility] [employer] Eosinophils/100 WBC (Bld) 0.3 % 0.0 - 6.0 % [facility] Erythrocyte distribution width (RBC) [Ratio] 17.8 % High 11.5 - 15.0 % [facility] Hematocrit (Bld) [Volume fraction] 31.8 % Low 35.0 - 47.0 % [facility] Hemoglobin (Bld) [Mass/Vol] 9.7 g/dL Low 11.7 - 16.0 g/dL [facility] Immature granulocytes (Bld) [#/Vol] 0 10*3/uL NINF - 0.1 10*3/uL [facility] [employer] Immature granulocytes/100 WBC (Bld) 0.3 % 0.0 - 2.0 % [facility] Interpretation and review of laboratory results Abnormal [facility] Lymphocytes (Bld) [#/Vol] 1.2 10*3/uL 1.0 - 4.3 10*3/uL [facility] [employer] Lymphocytes/100 WBC (Bld) 18.9 % 15.0 - 45.0 % [facility] MCH (RBC) [Entitic mass] 26.4 pg 26.0 - 34.0 pg [facility] [employer] MCHC (RBC) [Mass/Vol] 30.5 % 30.5 - 36.0 % [facility] MCV (RBC) [Entitic vol] 86.4 fL 77.0 - 99.0 fL [facility] Monocytes (Bld) [#/Vol] 0.5 10*3/uL 0.0 - 0.9 10*3/uL [facility] Monocytes/100 WBC (Bld) 8.2 % 5.0 - 13.0 % [facility] Neutrophils (Bld) [#/Vol] 4.4 10*3/uL 1.8 - 7.5 10*3/uL [facility] Neutrophils/100 WBC (Bld) 71.8 % 38.0 - 82.0 % [facility] Nucleated RBC/100 WBC (Bld) [Ratio] 0 % [facility] Platelet mean volume (Bld) [Entitic vol] 10.9 fL 9.0 - 12.7 fL [facility] Platelets (Bld) [#/Vol] 278 10*3/uL 140 - 440 10*3/uL [facility] RBC (Bld) [#/Vol] 3.68 10*6/uL Low 3.80 - 5.2 0 10*6/uL [facility] WBC (Bld) [#/Vol] 6.1 10*3/uL 3.6 - 10.7 10*3/uL [facility] CBC WITH AUTO DIFFERENTIALon 07-06-2024 Basophils (Bld) [#/Vol] 0.0 10*3/uL Normal 0.0-0.2 [facility] Comment on above: Performed By: #### L [id number] ####Crabber: VELMA VALADEZ ([phone])[facility] ([facility])[address] [place] [address] Basophils/100 WBC (Bld) 0.5 % Normal 0.0-2.0 [facility] Comment on above: Performed By: #### L [id number] ####Crabber: VELMA VALADEZ ([id number])[facility] ([facility])[address] [place] [address] Eosinophils (Bld) [#/Vol] 0.0 10*3/uL Normal 0.0-0.5 [facility] Comment on above: Performed By: #### L [id number] ####Crabber: VELMA VALADEZ ([id number])[facility])[address] [place] [address] Eosinophils/100 WBC (Bld) 0.3 % Normal 0.0-6.0 [facility] Comment on above: Performed By: #### L [id number] ####Crabber: VELMA VALADEZ ([id number])[facility])[address] [place] [address] Erythrocyte distribution width (RBC) [Ratio] 17.8 % High 11.5-15.0 [facility] Comment on above: Performed By: #### L [id number] ####Crabber: VELMA VALADEZ ([id number])[address] Hematocrit (Bld) [Volume fraction] 31.8 % Low 35.0-47.0 [facility] Comment on above: Performed By: #### L [id number] ####Crabber: VELMA VALADEZ ([id number])[address] Hemoglobin (Bld) [Mass/Vol] 9.7 g/dL Low 11.7-16.0 [facility] Comment on above: Performed By: #### L [id number] ####Crabber: VELMA VALADEZ ([phone])[facility])[address] [place] [address] IMMATURE GRANS % 0.3 % Normal 0.0-2.0 [facility] Comment on above: Performed By: #### L [id number] ####Crabber: VELMA VALADEZ ([id number])[address] IMMATURE GRANS ABSOLUTE 0.0 10*3/uL Normal <0.1 [facility] Comment on above: Performed By: #### L [id number] ####Crabber: VELMA VALADEZ ([id number])[facility])[address] [place] [address] Lymphocytes (Bld) [#/Vol] 1.2 10*3/uL Normal 1.0-4.3 [facility] Comment on above: Performed By: #### L [id number] ####Crabber: VELMA VALADEZ ([id number])[facility])[address] [place] [address] Lymphocytes/100 WBC (Bld) 18.9 % Normal 15.0-45.0 [facility] Comment on above: Performed By: #### L [id number] ####Crabber: VELMA VALADEZ ([id number])[facility])[address] [place] [address] MCH (RBC) [Entitic mass] 26.4 pg Normal 26.0-34.0 [facility] Comment on above: Performed By: #### L [id number] ####Crabber: VELMA VALADEZ ([id number])[facility])[address] [place] [address] MCHC 30.5 % Normal 30.5-36.0 [facility] Comment on above: Performed By: #### L [id number] ####Crabber: VELMA VALADEZ ([id number])[facility])[address] [place] [address] MCV (RBC) [Entitic vol] 86.4 fL Normal 77.0-99.0 [facility] Comment on above: Performed By: #### L [id number] ####Crabber: VELMA VALADEZ ([id number])[facility])[address] [place] [address] Monocytes (Bld) [#/Vol] 0.5 10*3/uL Normal 0.0-0.9 [facility] Comment on above: Performed By: #### L [id number] ####Crabber: VELMA VALADEZ ([id number])[facility])[address] [place] [address] Monocytes/100 WBC (Bld) 8.2 % Normal 5.0-13.0 [facility] Comment on above: Performed By: #### L [id number] ####Crabber: VELMA VALADEZ ([id number])[facility] ([facility])[address] [place] [address] NEUTROPHILS ABSOLUTE 4.4 10*3/uL Normal 1.8-7.5 [facility] Comment on above: Performed By: #### L [id number] ####Crabber: VELMA VALADEZ ([id number])[facility] ([facility])[address] [place] [address] Neutrophils/100 WBC (Bld) 71.8 % Normal 38.0-82.0 [facility] Comment on above: Performed By: #### L [id number] ####Crabber: VELMA VALADEZ ([phone])[facility] ([facility])[address] [place] [address] NRBC 0.0 /100 WBCs Normal 0.0-2.0 [facility] Comment on above: Performed By: #### L [id number] ####Crabber: VELMA VALADEZ ([id number])[facility] ([facility])[address] [place] [address] Platelet mean volume (Bld) [Entitic vol] 10.9 fL Normal 9.0-12.7 [facility] Comment on above: Performed By: #### L [id number] ####Crabber: VELMA VALADEZ ([phone])[facility] ([facility])[address] [place] [address] Platelets (Bld) [#/Vol] 278 10*3/uL Normal 140-440 [facility] Comment on above: Performed By: #### L [id number] ####Crabber: VELMA VALADEZ ([id number])[facility] ([facility])[address] [place] [address] RBC (Bld) [#/Vol] 3.68 10*6/uL Low 3.80-5.20 [facility] Comment on above: Performed By: #### L [id number] ####Crabber: VELMA VALADEZ ([id number])[facility] ([facility])[address] [place] [address] WBC (Bld) [#/Vol] 6.1 10*3/uL Normal 3.6-10.7 [facility] Comment on above: Performed By: #### L [id number] ####Crabber: VELMA VALADEZ ([phone])[facility] ([facility])[address] [place] [address] 07-06-2024 CNPN Telephone (OPHTMN) MEL GUADARRAMA ([id number]) [address] [facility] Date Time Provider Department 07/06/24 RYAN ELIZONDO During your visit today, we recorded the following information about you: Ryan Elizondo MD 07/06/2024 2:42 PM Signed TELEPHONE ENCOUNTER 07/06/2024 Patient with recent stroke and admitted to [facility] where she was noted to have elevated IOP with retinal detachment of the right eye by consult cream tester. 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 Was contacted about potential transfer to [facility] to be evaluated by retinal specialist. Discussed [...] as needed for wheezing/shortness of breath. - alnlebrphue-ejcygeysq-s ilanter (TRELEGY ELLIPTA) 100-62.5-25 mcg inhalation powder [...] Status:Closed by RYAN ELIZONDO on 07/06/24 Normal [facility] Consulton 07-06-2024 Consult Normal [facility] Nursing Noteon 07-06-2024 Nursing Note This RN called Protective Services to try and locate pts lost glasses from 07/05/2024. Glasses that match the description are in lost and found. Will attempt to see if glasses are a match. Normal [facility] Progress Noteon 07-06-2024 Progress Note Normal [facility] Progress Note Normal [facility] CBC (HEMOGRAM)on 07-05-2024 Erythrocyte distribution width (RBC) [Ratio] 17.2 % High 11.5-15.0 [facility] Comment on above: Performed By: #### L [id number] ####Crabber: VELMA VALADEZ ([id number])[address] Hematocrit (Bld) [Volume fraction] 32.8 % Low 35.0-47.0 [facility] Comment on above: Performed By: #### L [id number] ####Crabber: VELMA VALADEZ ([phone])[facility])[address] [place] [address] Hemoglobin (Bld) [Mass/Vol] 10.6 g/dL Low 11.7-16.0 [facility] Comment on above: Performed By: #### L [id number] ####Crabber: VELMA VAALDEZ ([phone])[facility])[address] [place] [address] MCH (RBC) [Entitic mass] 26.4 pg Normal 26.0-34.0 [facility] Comment on above: Performed By: #### L [id number] ####Crabber: VEMLA VALADEZ ([id number])[facility])[address] [place] [address] MCHC 32.3 % Normal 30.5-36.0 [facility] Comment on above: Performed By: #### L [id number] ####Crabber: VELMA VALADEZ ([phone])[facility] ([facility])[address] [place] [address] MCV (RBC) [Entitic vol] 81.8 fL Normal 77.0-99.0 [facility] Comment on above: Performed By: #### L [id number] ####Crabber: VELMA VALADEZ ([id number])[facility])[address] [place] [address] Platelet mean volume (Bld) [Entitic vol] 9.6 fL Normal 9.0-12.7 [facility] Comment on above: Performed By: #### L [id number] ####Crabber: VELMA VALADEZ ([phone])[facility] ([facility])[address] [place] [address] Platelets (Bld) [#/Vol] 349 10*3/uL Normal 140-440 [facility] Comment on above: Performed By: #### L [id number] ####Crabber: VELMA VALADEZ ([id number])[facility])[address] [place] [address] RBC (Bld) [#/Vol] 4.01 10*6/uL Normal 3.80-5.20 [facility] Comment on above: Performed By: #### L [id number] ####Crabber: VELMA VALADEZ ([id number])[facility])[address] [place] [address] WBC (Bld) [#/Vol] 5.5 10*3/uL Normal 3.6-10.7 [facility] Comment on above: Performed By: #### L [id number] ####Crabber: VELMA VALADEZ ([phone])[facility] ([facility])[address] [place] [address] CBC panel Auto (Bld)on 07-05 Erythrocyte distribution width (RBC) [Ratio] 17.2 % High 11.5 - 15.0 % [facility] Hematocrit (Bld) [Volume fraction] 32.8 % Low 35.0 - 47.0 % [facility] Hemoglobin (Bld) [Mass/Vol] 10.6 g/dL Low 11.7 - 16.0 g/dL [facility] Interpretation and review of laboratory results Abnormal [facility] MCH (RBC) [Entitic mass] 26.4 pg 26.0 - 34.0 pg [facility] MCHC (RBC) [Mass/Vol] 32.3 % 30.5 - 36.0 % [facility] MCV (RBC) [Entitic vol] 81.8 fL 77.0 - 99.0 fL [facility] Platelet mean volume (Bld) [Entitic vol] 9.6 fL 9.0 - 12.7 fL [facility] Platelets (Bld) [#/Vol] 349 10*3/uL 140 - 440 10*3/uL [facility] RBC (Bld) [#/Vol] 4.01 10*6/uL 3.80 - 5.2 0 10*6/uL [facility] WBC (Bld) [#/Vol] 5.5 10*3/uL 3.6 - 10.7 10*3/uL [facility] COMPREHENSIVE METABOLIC PANE Gilberto 07-05-2024 Albumin [Mass/Vol] 3.6 g/dL Normal 3.4-4.8 [facility] Comment on above: Performed By: #### L [id number], LAB17 ####Crabber: VELMA VALADEZ ([phone])[facility] ([facility])[address] [place] [address] ALP [Catalytic activity/Vol] 94 U/L Normal 40-150 [facility] Comment on above: Performed By: #### L [id number], LAB17 ####Crabber: VELMA [id number])[facility] ([facility] [place] [address] [place] ALT [Catalytic activity/Vol] 23 U/L Normal <30 [facility] Comment on above: Performed By: #### L [id number], LAB17 ####Crabber: VELMA VALADEZ ([phone])[facility] ([facility])[address] [place] [address] Anion gap [Moles/Vol] 10 mmol/L Normal 3-13 [facility] Comment on above: Performed By: #### L [id number], LAB17 ####Crabber: VELMA VALADEZ ([phone])[facility] ([facility])[address] [place] [address] AST [Catalytic activity/Vol] 26 U/L Normal <34 [facility] Comment on above: Performed By: #### L [id number], LAB17 ####Crabber: VELMA VALADEZ ([phone])[facility] ([facility])[address] [place] [address] Bilirubin [Mass/Vol] 0.7 mg/dL Normal <1.2 [facility] Comment on above: Performed By: #### L [id number], LAB17 ####Crabber: VELMA VALADEZ ([phone])[facility] ([facility])[address] [place] [address] Calcium [Mass/Vol] 9.2 mg/dL Normal 8.8-10.0 [facility] Comment on above: Performed By: #### L [id number], LAB17 ####Crabber: VELMA VALADEZ ([phone])[facility] ([facility])[address] [place] [address] [place] Chloride [Moles/Vol] 107 mmol/L Normal 98-107 [facility] Comment on above: Performed By: #### L [id number], LAB17 ####Crabber: VELMA VALADEZ ([phone])[facility] ([facility])[address] [place] [address] [place] CO2 [Moles/Vol] 22 mmol/L Low 23-31 [facility] Comment on above: Performed By: #### L [id number], LAB17 ####Crabber: VELMA VALADEZ ([phone])[facility])[address] [place] [address] Creatinine [Mass/Vol] 0.82 mg/dL Normal 0.57-1.11 [facility] Comment on above: Performed By: #### L [id number], LAB17 ####Crabber: VELMA VALADEZ ([phone])[facility])[address] [place] [address] GLOMERULAR FILTRATION RATE ML/MIN/1.73 SQ M.PREDICTED 70.6 mL/min/1.73m*2 Normal >60.0 [facility] Comment on above: Result Comment: Calc ulation based on the Chronic Kidney Disease Epidemiology Collaboration (CKD-EPI) equation refit without adjustment for race Performed By: #### L [id number], LAB17 ####Crabber: VELMA VALADEZ ([phone])[facility] ([facility])[address] [place] [address] Glucose [Mass/Vol] 118 mg/dL High 82-115 [facility] Comment on above: Performed By: #### L [id number], LAB17 ####Crabber: VELMA VALADEZ ([phone])[facility])[address] [place] [address] Potassium [Moles/Vol] 4.3 mmol/L Normal 3.5-5.1 [facility] Comment on above: Result Comment: [facility] potassium values may be up to 0.5 mmol/L lower than serum values. Performed By: #### L [id number], LAB17 ####Crabber: VELMA VALADEZ ([phone])[facility])[address] [place] [address] Protein [Mass/Vol] 7.0 g/dL Normal 6.4-8.3 [facility] Comment on above: Performed By: #### L [id number], LAB17 ####Crabber: VELMA VALADEZ ([id number])[address] Sodium [Moles/Vol] 139 mmol/L Normal 136-145 [facility] Comment on above: Performed By: #### L [id number], LAB17 ####Crabber: VELMA VALADEZ ([phone])[address] Urea nitrogen [Mass/Vol] 13 mg/dL Normal 9-23 [facility] Comment on above: Performed By: #### L [id number], LAB17 ####Crabber: VELMA VALADEZ ([phone])[address] HEAD NECK ANGIO W AND WO IV CONTRASTon 07-05-2024 CT HEAD NECK ANGIO W AND WO IV CONTRAST Normal [facility] CT HEAD WO IV CONTRASTon CT HEAD WO IV CONTRAST Normal [facility] CT Head WO contraston 2023 Patient Name: MEL CARVER RD : 1940 [facility]#: [id number] Exam Date/Time: 07/05/2024 04:36 Procedure: CT HEAD [...] : 1940 [facility]#: [id number] Exam Date/Time: 07/05/2024 04:36 Procedure: CT HEAD [...] acute consolidative process (more content not included)... [facility] CT PERFUSIONon 07-05-2024 CT PERFUSION Normal [facility] CTA Head vessels and Neck ve ssels WO and W contrast Cheryl 07-05-2024 Patient Name: MEL CARVER RD : 1940 [facility]#: [id number] Exam Date/Time: 07/05/2024 04:36 Procedure: CT HEAD [...] : 1940 [facility]#: [id number] Exam Date/Time: 07/05/2024 04:36 Procedure: CT HEAD [...] no acute conso (more content not included)... [facility] metabolic 1998 panelon 07-05-2024 Albumin [Mass/Vol] 3.6 g/dL 3.4 - 4.8 g/dL [facility] ALP [Catalytic activity/Vol] 94 U/L 40 - 150 U/L [facility] ALT [Catalytic activity/Vol] 23 U/L NINF - 30 U/L [facility] Anion gap [Moles/Vol] 10 mmol/L 3 - 13 mmol/L [facility] AST [Catalytic activity/Vol] 26 U/L NINF - 34 U/L [facility] Bilirubin [Mass/Vol] 0.7 mg/dL NINF - 1.2 mg/dL [facility] Calcium [Mass/Vol] 9.2 mg/dL 8.8 - 10. 0 mg/dL [facility] Chloride [Moles/Vol] 107 mmol/L 98 - 10 7 mmol/L [facility] CO2 [Moles/Vol] 22 mmol/L Low 23 - 31 mmol/L [facility] Creatinine [Mass/Vol] 0.82 mg/dL 0.57 - 1.11 mg/dL [facility] GFR/1.73 sq M.predicted (S/P/Bld) [Vol rate/Area] 70.6 mL/min - PINF [facility] Comment on above: Calculation based on the Chronic Kidney Disease Epidemiology Collaboration (CKD-EPI) equation refit without adjustment for race Glucose [Mass/Vol] 118 mg/dL High 82 - 115 mg/dL [facility] Interpretation and review of laboratory results Abnormal [facility] Potassium [Moles/Vol] 4.3 mmol/L 3.5 - 5.1 mmol/L [facility] Comment on above: Plasma potassium chris ues may be up to 0.5 mmol/L lower than serum values. Protein [Mass/Vol] 7 g/dL 6.4 - 8.3 g/dL [facility] Sodium [Moles/Vol] 139 mmol/L 136 - 145 mmol/L [facility] Urea nitrogen [Mass/Vol] 13 mg/dL 9 - 23 mg/dL [facility] Consulton 07-05-2024 Consult Normal [facility] Consult Normal [facility] Consult Normal [facility] Consult Normal [facility] ECG 12-LEADon 07-05-2024 ECG 12-LEAD IMPRESSION: Atrial fibrillation Electronically Signed On 07-05-2024 12:39:21 EST by Jhonatan Hernandez [facility] ED Nursing Noteon 07-05-[address] Carlson at bedside. Normal [facility] ED Nursing Note Provider notified of patient request for pain meds. Normal [facility] ED Nursing Note Dr. Carlson at bedside [facility] ED Nursing Note Patient is returning back to room 32 at this time with Jose, Wil. [facility] ED Nursing Note Pt emergently going to eye clinic. Pt being transported in wheelchair with trauma float RADHA Hinkle and Maritza RN Pt being transported on zoll monitor and acls kit. Normal [facility] ED Nursing Note Ophthalmology at bedside [facility] ED Nursing Note Report to Maritza FRAGA [facility] ED Provider Noteon ED Provider Note [facility] HEMOGLOBIN A1Con 07-05-2024 Glucose [Mass/Vol] 120 mg/dL [facility] Comment on above: Result Comment: BUBBA Garcia COMMENTS:HbA1c values of 5.7-6.4 percent indicate an increased risk for developing diabetes mellitus. HbA1c values greater than or equal to 6.5 percent are diagnostic of diabetes mellitus. For diagnosis of diabetes in individuals without unequivocal hyperglycemia, results should be confirmed by repeat testing. Performed By: #### L [id number] ####Crabber: VELMA VALADEZ ([phone])[facility] ([facility])[address] [place] [address] HEMOGLOBIN A1C 5.8 %HbA1C High <5.7 [facility] Comment on above: Result Comment: Norm al less than 5.7%Prediabetes 5.7% to 6.4%Diabetes 6.5% or higher--HgbA1C levels may not be accurate in patients who have renal disease, received recent blood transfusions, are anemic, or who have dyshemoglobinemia. Performed By: #### L [id number] ####Crabber: VELMA VALADEZ ([phone])[facility] ([facility])[address] [place] [address] HIGH SENSITIVITY TROPONIN, S ERIAL BASELINEon 07-05-2024 TROPONIN HIGH SENSITIVITY BASELINE 14 ng/L Normal <=14 [facility] Comment on above: Performed By: #### L [id number] ####Crabber: VELMA VALADEZ ([phone])[facility] ([facility])[address] [place] [address] HIGH SENSITIVITY TROPONIN, S ERIAL, SECOND TESTon 07-05-2024 TROPONIN HS DELTA, BASELINE TO SECOND -5 ng/L Normal <=2 [facility] Comment on above: Result Comment: This [...] further clinical guidance. Performed By: #### L [id number], LAB17 ####Crabber: VELMA VALADEZ ([phone])[facility] ([facility])[address] [place] [address] TROPONIN HS, SERIAL REFLEX, TEST TWO 9 ng/L Normal <=14 [facility] Comment on above: Performed By: #### L [id number], LAB17 ####Crabber: VELMA VALADEZ ([phone])[facility] ([facility])[address] [place] [address] Laboratory - Chemistry and C hemistry - challengeon 07-05-2024 Average glucose Estimated from glycated hemoglobin (Bld) [Mass/Vol] 120 mg/dL [facility] Anion gap (Bld) [Moles/Vol] 8 mmol/L 3.00 - 13.00 [facility] Calcium.ionized (Bld) [Moles/Vol] 4.5 mg/dl 4.30 - 5.20 mg/dl [facility] [employer] Comment on above: Performed by [employer] CLIA ID:[id number] [place], [place] Device: [id number] Tile Grader ID: [id number] Chloride [Moles/Vol] 108 mmol/L 98 - 11 4 mmol/L [facility] [employer] CO2 [Moles/Vol] 23 mmol/L 21 - 29 mmol/L [facility] [employer] Creatinine [Mass/Vol] 0.9 mg/dL 0.6 - 1.3 mg/dL [facility] [employer] GFR/1.73 sq M.predicted CKD-EPI (S/P/Bld) [Vol rate/Area] 63.2 [facility] Comment on above: KDIGO guidelines pro [...] mg/dL High 70 - 100 mg/dL [facility] [employer] Potassium [Moles/Vol] 4.5 mmol/L 3.4 - 5.1 mmol/L [facility] [employer] Sodium [Moles/Vol] 139 mmol/L 133 - 145 mmol/L [facility] [employer] Urea (Bld) [Mass/Vol] 14 mg/dL 4 - 22 mg/dL [facility] Glucose [Mass/Vol] 104 mg/dL High 70 - 100 mg/dL [facility] Laboratory - Coagulationon 1 09-05-2023 aPTT Coag (PPP) [Time] 30.4 s 20.0 - 30.5 s [facility] INR Coag (PPP) [Relative time] 1 {INR} 0.9 - 1.1 [facility] Comment on above: Recommended Anticoag ulant [...] 11.7 s 9.0 - 1 2.0 s [facility] Laboratory - Hematology and Cell countson 07-05-2024 HbA1c (Bld) [Mass fraction] 5.8 % High NINF [facility] Comment on above: Normal less than [...] MD Electronically Signed Date/Time: 07/05/2024 12:13 PM [facility] [employer] [facility] Patient Name: MEL CARVER RD : 1940 [id number] Exam Date/Time: 07/05/2024 11:45 Procedure: MR BRAIN [...] There is artifact within the right globe. [facility] Ming Fry MD - 07/05/2024 Patient Name: MEL POP : 1940 [facility]#: [id number] Exam Date/Time: 07/05/2024 11:45 Procedure: MR BRAIN [...] Electronically Signed Date/Time: 07/05/2024 12:13 PM EST [facility] [employer] Radiology Study observation (narrative) [facility] Brain WO contrastOrdered By: Ming Fry on 07-05-2024 [employer] Work Phone: No Panel Informationon 07-05 Heart Rate 59 bpm [employer] P Luke 0 degrees [facility] [employer] [place] Interval 0 ms [facility] Health QRS Luke 37 degrees [facility] QRSD Interval 98 ms [facility] h QT Interval 423 ms [facility] QTC Interval 418 ms [facility] T Wave Luke 29 degrees [facility] Atrial fibrillation Electronically Signed On 07-05-2024 12:39:21 EST by Jhonatan Hernandez CV Jhonatan Abdi MD - 07/05/2024 IMPRESSION: Atrial fibrillation Electronically Signed On 07-05-2024 12:39:21 EST by Jhonatan Hernandez [facility] Interpretation and review of laboratory results Abnormal [facility] HbA1c values of 5.7- 6.4 percent indicate an increased risk for developing diabetes mellitus. HbA1c values greater than or equal to 6.5 percent are diagnostic of diabetes mellitus. For diagnosis of diabetes in individuals without unequivocal hyperglycemia, results should be confirmed by repeat testing. [facility] Troponin HS Delta, Baseline to Second -5 ng/L NINF - 2 ng/L [facility] Comment on above: This specimen was [...] Second 9 ng/L NINF - 14 ng/L [facility] 1. No acute intracranial hemorrhage or [...] : 1940 [facility]#: [id number] Exam Date/Time: 07/05/2024 04:36 Procedure: CT PERFUSION [...] not included)... [facility], Cirilo Khalil MD - 07/05/2024 Patient Name: MEL POP : 1940 [id number] Exam Date/Time: 07/05/2024 04:36 Procedure: CT PERFUSION [...] process or suspici (more content not included)... [facility] Interpretation and review of laboratory results Normal [facility] Troponin HS, Serial Baseline 14 ng/L NINF - 14 ng/L [facility] Interpretation and review of laboratory results Normal [facility] Interpretation and review of laboratory results Abnormal [facility] Performed by: [email or web address], [address] [place] [address] CLIA ID: [id number] [facility] Radiology Study observation (narrative) [facility] Interpretation and review of laboratory results Abnormal [facility] Performed by: [email or web address], [address] [place] [address] CLIA ID: [id number] [facility] Panel InformationOrdered By: Cirilo Ray on 07-05-2024 [facility] [employer] Work Phone: PROTIME AND APTTon aPTT Coag (Bld) [Time] 30.4 s Normal 20.0-30.5 [facility] Comment on above: Performed By: #### L [id number] ####Crabber: VELMA VALADEZ ([phone])[facility] ([facility])[address] [place] [address] INR Coag (PPP) [Relative time] 1.0 {INR} Normal 0.9-1.1 [facility] Comment on above: Result Comment: Timothy [...] prevent Myocardial Infarction Performed By: #### L [id number] ####Crabber: VELMA VALADEZ ([phone])[facility] ([facility])[address] [place] [address] PT Coag (PPP) [Time] 11.7 s Normal 9.0-12.0 [facility] Comment on above: Performed By: #### L [id number] ####Crabber: VELMA VALADEZ ([phone])[facility] ([facility])[address] [place] [address] Progress Noteon 07-05-2024 Progress Note Normal [facility] CBC panel Auto (Bld)on 07-02 Erythrocyte distribution width (RBC) [Ratio] 16.9 % High 11.5 - 15.0 % [facility] Hematocrit (Bld) [Volume fraction] 29.6 % Low 36.0 - 46.0 % [facility] Hemoglobin (Bld) [Mass/Vol] 9.3 g/dL Low 11.5 - 15.5 g/dL [facility] Interpretation and review of laboratory results Abnormal [facility] MCH (RBC) [Entitic mass] 26.7 pg 26.0 - 34.0 pg [facility] MCHC (RBC) [Mass/Vol] 31.4 g/dL 30.5 - 36.0 g/dL [facility] MCV (RBC) [Entitic vol] 85.1 fL 80.0 - 100.0 fL [facility] Nucleated RBC (Bld) [#/Vol] NINF [facility] Platelet mean volume (Bld) [Entitic vol] 10.2 fL 9.0 - 12.7 fL [facility] Platelets (Bld) [#/Vol] 324 10*3/uL [facility] RBC (Bld) [#/Vol] 3.48 10*6/uL Low 3.90 - 5.2 0 m/uL [facility] WBC (Bld) [#/Vol] 5.12 10*3/uL [facility] Erythrocyte distribution width (RBC) [Ratio] 16.9 % High 11.5-15.0 [facility] Comment on above: Order Comment: Speci men Type: BLOOD SPECIMENOrdering Facility: [facility] [place] Address: [address] [place] [address] Performed By: #### 5 8410-2 ####[facility] LABORATORYCLIA [id number] [address] [place] Hematocrit (Bld) [Volume fraction] 29.6 % Low 36.0-46.0 [facility] Comment on above: Order Comment: Speci men Type: BLOOD SPECIMENOrdering Facility: [facility] [place] Address: [address] [place] [address] Performed By: #### 5 8410-2 ####[facility] LABORATORYCLIA [id number] [place] [address] [place] Hemoglobin (Bld) [Mass/Vol] 9.3 g/dL Low 11.5-15.5 [facility] Comment on above: Order Comment: Speci men Type: BLOOD SPECIMENOrdering Facility: [facility] [place] Address: [address] [place] [address] Performed By: #### 5 8410-2 ####[facility] LABORATORYCLIA [id number] [address] MCH (RBC) [Entitic mass] 26.7 pg Normal 26.0-34.0 [facility] Comment on above: Order Comment: Speci men Type: BLOOD SPECIMENOrdering Facility: [facility], [place] Address: [address] [place] [address] Performed By: #### 5 8410-2 ####[facility] LABORATORYCLIA [id number] [address] MCHC (RBC) [Mass/Vol] 31.4 g/dL Normal 30.5-36.0 [facility] Comment on above: Order Comment: Speci men Type: BLOOD SPECIMENOrdering Facility: [facility] [place] Address: [address] [place] [address] Performed By: #### 5 8410-2 ####[facility] LABORATORYCLIA [id number] [address] [place] MCV (RBC) [Entitic vol] 85.1 fL Normal 80.0-100.0 [facility] Comment on above: Order Comment: Speci men Type: BLOOD SPECIMENOrdering Facility: [facility], [place] Address: [address] [place] [address] Performed By: #### 5 8410-2 ####[facility] LABORATORYCLIA [id number] [address] [place] Nucleated RBC (Bld) [#/Vol] 10*3/uL Normal <0.01 [facility] Comment on above: Order Comment: Speci men Type: BLOOD SPECIMENOrdering Facility: [facility] [place] Address: [address] [place] [address] Performed By: #### 5 8410-2 ####[facility] LABORATORYCLIA [id number] [address] Platelet mean volume (Bld) [Entitic vol] 10.2 fL Normal 9.0-12.7 [facility] Comment on above: Order Comment: Speci men Type: BLOOD SPECIMENOrdering Facility: [facility], [place] Address: [address] [place] [address] Performed By: #### 5 8410-2 ####[facility] LABORATORYCLIA [id number] [address] [place] Platelets (Bld) [#/Vol] 324 10*3/uL Normal 150-400 [facility] Comment on above: Order Comment: Speci men Type: BLOOD SPECIMENOrdering Facility: [facility], [place] Address: [address] [place] [address] Performed By: #### 5 8410-2 ####[facility] LABORATORYCLIA [id number] [place] [address] [place] RBC (Bld) [#/Vol] 3.48 10*6/uL Low 3.90-5.20 [facility] Comment on above: Order Comment: Speci men Type: BLOOD SPECIMENOrdering Facility: [facility], [place] Address: [address] [place] [address] Performed By: #### 5 8410-2 ####[facility] LABORATORYCLIA [id number] [address] [place] WBC (Bld) [#/Vol] 5.12 10*3/uL Normal 3.70-11.00 [facility] Comment on above: Order Comment: Speci men Type: BLOOD SPECIMENOrdering Facility: [facility] [place] Address: [address] [place] [address] Performed By: #### 5 8410-2 ####[facility] LABORATORYCLIA [id number] [place] [id number] [facility] [place] CBC panel Auto (Bld)on 06-28 Erythrocyte distribution width (RBC) [Ratio] 16.6 % High 11.5 - 15.0 % [facility] Hematocrit (Bld) [Volume fraction] 28.8 % Low 36.0 - 46.0 % [facility] Hemoglobin (Bld) [Mass/Vol] 9.0 g/dL Low 11.5 - 15.5 g/dL [facility] Interpretation and review of laboratory results Abnormal [facility] MCH (RBC) [Entitic mass] 26.8 pg 26.0 - 34.0 pg [facility] MCHC (RBC) [Mass/Vol] 31.3 g/dL 30.5 - 36.0 g/dL [facility] MCV (RBC) [Entitic vol] 85.7 fL 80.0 - 100.0 fL [facility] Nucleated RBC (Bld) [#/Vol] NINF [facility] Platelet mean volume (Bld) [Entitic vol] 10.5 fL 9.0 - 12.7 fL [facility] Platelets (Bld) [#/Vol] 316 10*3/uL [facility] RBC (Bld) [#/Vol] 3.36 10*6/uL Low 3.90 - 5.2 0 m/uL [facility] WBC (Bld) [#/Vol] 5.27 10*3/uL [facility] Erythrocyte distribution width (RBC) [Ratio] 16.6 % High 11.5-15.0 [facility] Comment on above: Order Comment: Samiri isabella Type: BLOOD SPECIMEN Ordering Facility: [facility], [place] Address: [address] [place] [address] Performed By: #### 2 276-4 #### [facility] CLIA [id number] [address] [place] [address] [place] Hematocrit (Bld) [Volume fraction] 28.8 % Low 36.0-46.0 [facility] Comment on above: Order Comment: Rhina mason Type: BLOOD SPECIMEN Ordering Facility: [facility], [place] Address: [address] [place] [address] Performed By: #### 2 276-4 #### [facility] CLIA [id number] [address] [place] [address] [place] Hemoglobin (Bld) [Mass/Vol] 9.0 g/dL Low 11.5-15.5 [facility] Comment on above: Order Comment: Rhina mason Type: BLOOD SPECIMEN Ordering Facility: [facility], [place] Address: [address] [place] [address] Performed By: #### 2 276-4 #### [facility] CLIA [id number] [address] [place] [address] [place] MCH (RBC) [Entitic mass] 26.8 pg Normal 26.0-34.0 [facility] Comment on above: Order Comment: Speci men Type: BLOOD SPECIMEN Ordering Facility: [facility], [place] Address: [address] [place] [address] Performed By: #### 2 276-4 #### [facility] CLIA [id number] [address] [place] [address] [place] MCHC (RBC) [Mass/Vol] 31.3 g/dL Normal 30.5-36.0 [facility] Comment on above: Order Comment: Speci men Type: BLOOD SPECIMEN Ordering Facility: [facility], [place] Address: [address] [place] [address] Performed By: #### 2 276-4 #### [facility] CLIA [id number] [address] [place] [address] [place] MCV (RBC) [Entitic vol] 85.7 fL Normal 80.0-100.0 [facility] Comment on above: Order Comment: Speci men Type: BLOOD SPECIMEN Ordering Facility: [facility], [place] Address: [address] [place] [address] Performed By: #### 2 276-4 #### [facility] CLIA [id number] [address] [place] [address] [place] Nucleated RBC (Bld) [#/Vol] 10*3/uL Normal <0.01 [facility] Comment on above: Order Comment: Speci men Type: BLOOD SPECIMEN Ordering Facility: [facility], [place] Address: [address] [place] [address] Performed By: #### 2 276-4 #### [facility] CLIA [id number] [address] [place] [address] [place] Platelet mean volume (Bld) [Entitic vol] 10.5 fL Normal 9.0-12.7 [facility] Comment on above: Order Comment: Speci men Type: BLOOD SPECIMEN Ordering Facility: [facility], [place] Address: [address] [place] [address] Performed By: #### 2 276-4 #### [facility] CLIA [id number] [address] [place] [address] [place] Platelets (Bld) [#/Vol] 316 10*3/uL Normal 150-400 [facility] Comment on above: Order Comment: Speci men Type: BLOOD SPECIMEN Ordering Facility: [facility], [place] Address: [address] [place] [address] Performed By: #### 2 276-4 #### [facility] CLIA [id number] [address] [place] [address] [place] RBC (Bld) [#/Vol] 3.36 10*6/uL Low 3.90-5.20 [facility] Comment on above: Order Comment: Speci men Type: BLOOD SPECIMEN Ordering Facility: [facility], [place] Address: [address] [place] [address] Performed By: #### 2 276-4 #### [facility] CLIA [id number] [address] [place] [address] [place] WBC (Bld) [#/Vol] 5.27 10*3/uL Normal 3.70-11.00 [facility] Comment on above: Order Comment: Speci men Type: BLOOD SPECIMEN Ordering Facility: [facility], [place] Address: [address] [place] [address] Performed By: #### 2 276-4 #### [facility] CLIA [id number] [address] [place] [address] [place] FERRITINon 06-27-2024 Ferritin [Mass/Vol] 67.5 ng/mL 14.7 - 205.1 ng/mL [facility] Ferritin SerPl-mCncon 2023 Ferritin [Mass/Vol] 67.5 ng/mL Normal 14.7-205.1 [facility] Comment on above: Order Comment: Speci men Type: BLOOD SPECIMEN Ordering Facility: [facility], [place] Address: [address] [place] [address] Performed By: #### 2 276-4 #### [facility] CLIA [id number] [address] [place] [address] [place] Ferritin [Mass/Vol]on 2023 Interpretation and review of laboratory results Normal [facility] Iron and Iron binding capaci ty panelon 06-27-2024 Interpretation and review of laboratory results Abnormal [facility] Iron [Mass/Vol] 30 ug/dL Low 41 - 186 ug/dL [facility] Iron binding capacity [Mass/Vol] 298 ug/dL 232 - 386 ug/dL [facility] Iron/TIBC [Molar ratio] 10.1 % Low 15.0 - 57.0 % [facility] Iron [Mass/Vol] 30 ug/dL Low 41-186 [facility] Comment on above: Order Comment: Speci men Type: BLOOD SPECIMEN Ordering Facility: [facility], [place] Address: [address] [place] [address] Performed By: #### 2 276-4 #### [facility] CLIA [id number] [address] [place] [address] [place] Iron binding capacity [Mass/Vol] 298 ug/dL Normal 232-386 [facility] Comment on above: Order Comment: Speci men Type: BLOOD SPECIMEN Ordering Facility: [facility], [place] Address: [address] [place] [address] Performed By: #### 2 276-4 #### [facility] CLIA [id number] [address] [place] [address] [place] Iron/TIBC [Molar ratio] 10.1 % Low 15.0-57.0 [facility] Comment on above: Order Comment: Speci men Type: BLOOD SPECIMEN Ordering Facility: [facility], [place] Address: [address] [place] [address] Performed By: #### 2 276-4 #### [facility] CLIA [id number] [address] [place] [address] [place] CBC panel Auto (Bld)on 06-25 Erythrocyte distribution width (RBC) [Ratio] 15.9 % High 11.5 - 15.0 % [facility] Hematocrit (Bld) [Volume fraction] 28.7 % Low 36.0 - 46.0 % [facility] Hemoglobin (Bld) [Mass/Vol] 9.0 g/dL Low 11.5 - 15.5 g/dL [facility] Interpretation and review of laboratory results Abnormal [facility] MCH (RBC) [Entitic mass] 26.7 pg 26.0 - 34.0 pg [facility] MCHC (RBC) [Mass/Vol] 31.4 g/dL 30.5 - 36.0 g/dL [facility] MCV (RBC) [Entitic vol] 85.2 fL 80.0 - 100.0 fL [facility] Nucleated RBC (Bld) [#/Vol] NINF [facility] Platelet mean volume (Bld) [Entitic vol] 10.8 fL 9.0 - 12.7 fL [facility] Platelets (Bld) [#/Vol] 315 10*3/uL [facility] RBC (Bld) [#/Vol] 3.37 10*6/uL Low 3.90 - 5.2 0 m/uL [facility] WBC (Bld) [#/Vol] 4.96 10*3/uL [facility] Erythrocyte distribution width (RBC) [Ratio] 15.9 % High 11.5-15.0 [facility] Comment on above: Order Comment: Speci isabella Type: BLOOD SPECIMEN Ordering Facility: [facility] Address: [address] [place] [address] Performed By: #### 2 4362-6 #### [facility] CLIA [id number] [address] [place] [address] [place] Hematocrit (Bld) [Volume fraction] 28.7 % Low 36.0-46.0 [facility] Comment on above: Order Comment: Speci men Type: BLOOD SPECIMEN Ordering Facility: [facility] Address: [address] [place] [address] Performed By: #### 2 4362-6 #### [facility] CLIA [id number] [address] [place] [address] [place] Hemoglobin (Bld) [Mass/Vol] 9.0 g/dL Low 11.5-15.5 [facility] Comment on above: Order Comment: Speci men Type: BLOOD SPECIMEN Ordering Facility: [facility] Address: [address] [place] [address] Performed By: #### 2 4362-6 #### [facility] CLIA [id number] [address] [place] [address] [place] MCH (RBC) [Entitic mass] 26.7 pg Normal 26.0-34.0 [facility] Comment on above: Order Comment: Speci men Type: BLOOD SPECIMEN Ordering Facility: [facility] Address: [address] [place] [address] Performed By: #### 2 4362-6 #### [facility] CLIA [id number] [address] [place] [address] [place] MCHC (RBC) [Mass/Vol] 31.4 g/dL Normal 30.5-36.0 [facility] Comment on above: Order Comment: Speci men Type: BLOOD SPECIMEN Ordering Facility: [facility] Address: [address] [place] [address] Performed By: #### 2 4362-6 #### [facility] CLIA [id number] [address] [place] [address] [place] MCV (RBC) [Entitic vol] 85.2 fL Normal 80.0-100.0 [facility] Comment on above: Order Comment: Speci men Type: BLOOD SPECIMEN Ordering Facility: [facility] Address: [address] [place] [address] Performed By: #### 2 4362-6 #### [facility] CLIA [id number] [address] [place] [address] [place] Nucleated RBC (Bld) [#/Vol] 10*3/uL Normal <0.01 [facility] Comment on above: Order Comment: Speci men Type: BLOOD SPECIMEN Ordering Facility: [facility] Address: [address] [place] [address] Performed By: #### 2 4362-6 #### [facility] CLIA [id number] [address] [place] [address] [place] Platelet mean volume (Bld) [Entitic vol] 10.8 fL Normal 9.0-12.7 [facility] Comment on above: Order Comment: Speci men Type: BLOOD SPECIMEN Ordering Facility: [facility] Address: [address] [place] [address] Performed By: #### 2 4362-6 #### [facility] CLIA [id number] [address] [place] [address] [place] Platelets (Bld) [#/Vol] 315 10*3/uL Normal 150-400 [facility] Comment on above: Order Comment: Speci men Type: BLOOD SPECIMEN Ordering Facility: [facility] Address: [address] [place] [address] Performed By: #### 2 4362-6 #### [facility] CLIA [id number] [address] [place] [address] [place] RBC (Bld) [#/Vol] 3.37 10*6/uL Low 3.90-5.20 [facility] Comment on above: Order Comment: Speci men Type: BLOOD SPECIMEN Ordering Facility: [facility] Address: [address] [place] [address] Performed By: #### 2 4362-6 #### [facility] CLIA [id number] [address] [place] [address] [place] WBC (Bld) [#/Vol] 4.96 10*3/uL Normal 3.70-11.00 [facility] Comment on above: Order Comment: Speci men Type: BLOOD SPECIMEN Ordering Facility: [facility] Address: [address] [place] [address] Performed By: #### 2 4362-6 #### [facility] CLIA [id number] [address] [place] [address] [place] Basic metabolic 2000 panelon 06-21-2024 Anion gap [Moles/Vol] 12 mmol/L 8 - 15 mmol/L [facility] Calcium [Mass/Vol] 9.3 mg/dL 8.5 - 10. 2 mg/dL [facility] Chloride [Moles/Vol] 108 mmol/L High 98 - 10 7 mmol/L [facility] CO2 [Moles/Vol] 21 mmol/L Low 22 - 30 mmol/L [facility] Creatinine [Mass/Vol] 0.92 mg/dL 0.58 - 0.96 mg/dL [facility] GFR/1.73 sq M.predicted among non-blacks MDRD (S/P/Bld) [Vol rate/Area] 62 mL/min/{1.73_m2} - PINF [facility] Comment on above: Estimated Glomerular Filtration [...] 101 mg/dL High 74 - 99 mg/dL [facility] Comment on above: The [place] Diab[employer] s Association (ADA) provides guidance for [...] Standards of Medical Care in Diabetes 2016, [employer] Diabetes Association. Diabetes Care. 2016.39(Suppl 1). Interpretation and review of laboratory results Abnormal [facility] Potassium [Moles/Vol] 4.6 mmol/L 3.7 - 5.1 mmol/L [facility] Sodium [Moles/Vol] 141 mmol/L 136 - 144 mmol/L [facility] Urea nitrogen [Mass/Vol] 22 mg/dL High 7 - 21 mg/dL [facility] Anion gap [Moles/Vol] 12 mmol/L Normal 8-15 [facility] Comment on above: Order Comment: Speci men Type: BLOOD SPECIMEN Ordering Facility: [facility] Address: [address] [place] [address] Performed By: #### 2 4362-6 #### [facility] CLIA [id number] [address] [place] [address] [place] Calcium [Mass/Vol] 9.3 mg/dL Normal 8.5-10.2 [facility] Comment on above: Order Comment: Speci men Type: BLOOD SPECIMEN Ordering Facility: [facility] Address: [address] [place] [address] Performed By: #### 2 4362-6 #### [facility] CLIA [id number] [address] [place] [address] [place] Chloride [Moles/Vol] 108 mmol/L High 98-107 [facility] Comment on above: Order Comment: Speci men Type: BLOOD SPECIMEN Ordering Facility: [facility] Address: [address] [place] [address] Performed By: #### 2 4362-6 #### [facility] CLIA [id number] [address] [place] [address] [place] CO2 [Moles/Vol] 21 mmol/L Low 22-30 [facility] Comment on above: Order Comment: Speci men Type: BLOOD SPECIMEN Ordering Facility: [facility] Address: [address] [place] [address] Performed By: #### 2 4362-6 #### [facility] CLIA [id number] [address] [place] [address] [place] Creatinine [Mass/Vol] 0.92 mg/dL Normal 0.58-0.96 [facility] Comment on above: Order Comment: Rhina mason Type: BLOOD SPECIMEN Ordering Facility: [facility] Address: [address] [place] [address] Performed By: #### 2 4362-6 #### [facility] CLIA [id number] [address] [place] [address] [place] Creatinine and Glomerular filtration rate.predicted panel (S/P/Bld) 62 mL/min/1.73m??? Normal >=60 [facility] Comment on above: Order Comment: Rhina mason Type: BLOOD SPECIMEN Ordering Facility: [facility] Address: [address] [place] [address] Result Comment: Isa mated Glomerular Filtration Rate [...] GFR. Performed By: #### 2 4362-6 #### [facility] CLIA [id number] [address] [place] [address] [place] Glucose [Mass/Vol] 101 mg/dL High 74-99 [facility] Comment on above: Order Comment: Rhina mason Type: BLOOD SPECIMEN Ordering Facility: [facility] Address: [address] [place] [address] Result Comment: The [place] Diabetes Association (ADA) provides guidance for cutoff [...] Standards of Medical Care in Diabetes 2016, [place] Diabetes Association. Diabetes Care. 2016.39(Suppl 1). Performed By: #### 2 4362-6 #### [facility] CLIA [id number] [address] [place] [address] [place] Potassium [Moles/Vol] 4.6 mmol/L Normal 3.7-5.1 [facility] Comment on above: Order Comment: Speci men Type: BLOOD SPECIMEN Ordering Facility: [facility] Address: [address] [place] [address] Performed By: #### 2 4362-6 #### [facility] CLIA [id number] [address] [place] [address] [place] Sodium [Moles/Vol] 141 mmol/L Normal 136-144 [facility] Comment on above: Order Comment: Speci men Type: BLOOD SPECIMEN Ordering Facility: [facility] Address: [address] [place] [address] Performed By: #### 2 4362-6 #### [facility] CLIA [id number] [address] [place] [address] [place] Urea nitrogen [Mass/Vol] 22 mg/dL High 7-21 [facility] Comment on above: Order Comment: Speci men Type: BLOOD SPECIMEN Ordering Facility: [facility] Address: [address] [place] [address] Performed By: #### 2 4362-6 #### [facility] CLIA [id number] [address] [place] [address] [place] CBC panel Auto (Bld)on 06-21 Erythrocyte distribution width (RBC) [Ratio] 15.8 % High 11.5 - 15.0 % [facility] Hematocrit (Bld) [Volume fraction] 34.2 % Low 36.0 - 46.0 % [facility] Hemoglobin (Bld) [Mass/Vol] 10.6 g/dL Low 11.5 - 15.5 g/dL [facility] Interpretation and review of laboratory results Abnormal [facility] MCH (RBC) [Entitic mass] 26.4 pg 26.0 - 34.0 pg [facility] MCHC (RBC) [Mass/Vol] 31.0 g/dL 30.5 - 36.0 g/dL [facility] MCV (RBC) [Entitic vol] 85.3 fL 80.0 - 100.0 fL [facility] Nucleated RBC (Bld) [#/Vol] NINF [facility] Platelet mean volume (Bld) [Entitic vol] 10.7 fL 9.0 - 12.7 fL [facility] Platelets (Bld) [#/Vol] 300 10*3/uL [facility] RBC (Bld) [#/Vol] 4.01 10*6/uL 3.90 - 5.2 0 m/uL [facility] WBC (Bld) [#/Vol] 5.52 10*3/uL [facility] Erythrocyte distribution width (RBC) [Ratio] 15.8 % High 11.5-15.0 [facility] Comment on above: Order Comment: Speci men Type: BLOOD SPECIMEN Ordering Facility: [facility] Address: [address] [place] [address] Performed By: #### 2 4362-6 #### [facility] CLIA [id number] [address] [place] [address] [place] Hematocrit (Bld) [Volume fraction] 34.2 % Low 36.0-46.0 [facility] Comment on above: Order Comment: Speci men Type: BLOOD SPECIMEN Ordering Facility: [facility] Address: [address] [place] [address] Performed By: #### 2 4362-6 #### [facility] CLIA [id number] [address] [place] [address] [place] Hemoglobin (Bld) [Mass/Vol] 10.6 g/dL Low 11.5-15.5 [facility] Comment on above: Order Comment: Speci men Type: BLOOD SPECIMEN Ordering Facility: [facility] Address: [address] [place] [address] Performed By: #### 2 4362-6 #### [facility] CLIA [id number] [address] [place] [address] [place] MCH (RBC) [Entitic mass] 26.4 pg Normal 26.0-34.0 [facility] Comment on above: Order Comment: Speci men Type: BLOOD SPECIMEN Ordering Facility: [facility] Address: [address] [place] [address] Performed By: #### 2 4362-6 #### [facility] CLIA [id number] [address] [place] [address] [place] MCHC (RBC) [Mass/Vol] 31.0 g/dL Normal 30.5-36.0 [facility] Comment on above: Order Comment: Speci men Type: BLOOD SPECIMEN Ordering Facility: [facility] Address: [address] [place] [address] Performed By: #### 2 4362-6 #### [facility] CLIA [id number] [address] [place] [address] [place] MCV (RBC) [Entitic vol] 85.3 fL Normal 80.0-100.0 [facility] Comment on above: Order Comment: Speci men Type: BLOOD SPECIMEN Ordering Facility: [facility] Address: [address] [place] [address] Performed By: #### 2 4362-6 #### [facility] CLIA [id number] [address] [place] [address] [place] Nucleated RBC (Bld) [#/Vol] 10*3/uL Normal <0.01 [facility] Comment on above: Order Comment: Speci men Type: BLOOD SPECIMEN Ordering Facility: [facility] Address: [address] [place] [address] Performed By: #### 2 4362-6 #### [facility] CLIA [id number] [address] [place] [address] [place] Platelet mean volume (Bld) [Entitic vol] 10.7 fL Normal 9.0-12.7 [facility] Comment on above: Order Comment: Speci men Type: BLOOD SPECIMEN Ordering Facility: [facility] Address: [address] [place] [address] Performed By: #### 2 4362-6 #### [facility] CLIA [id number] [address] [place] [address] [place] Platelets (Bld) [#/Vol] 300 10*3/uL Normal 150-400 [facility] Comment on above: Order Comment: Speci men Type: BLOOD SPECIMEN Ordering Facility: [facility] Address: [address] [place] [address] Performed By: #### 2 4362-6 #### [facility] CLIA [id number] [address] [place] [address] [place] RBC (Bld) [#/Vol] 4.01 10*6/uL Normal 3.90-5.20 [facility] Comment on above: Order Comment: Speci men Type: BLOOD SPECIMEN Ordering Facility: [facility] Address: [address] [place] [address] Performed By: #### 2 4362-6 #### [facility] CLIA [id number] [address] [place] [address] [place] WBC (Bld) [#/Vol] 5.52 10*3/uL Normal 3.70-11.00 [facility] Comment on above: Order Comment: Speci men Type: BLOOD SPECIMEN Ordering Facility: [facility] Address: [address] [place] [address] Performed By: #### 2 4362-6 #### [facility] CLIA [id number] [address] [place] [address] [place] Basic metabolic 2000 panelon 06-19-2024 Anion gap [Moles/Vol] 10 mmol/L Normal 8-15 [facility] Comment on above: Order Comment: Speci men Type: BLOOD SPECIMEN Ordering Facility: [facility] Address: [address] [place] [address] Performed By: #### 2 4321-2, 02493-6, #### [facility] CLIA [id number] [address] [place] [address] [place] Calcium [Mass/Vol] 8.9 mg/dL Normal 8.5-10.2 [facility] Comment on above: Order Comment: Speci men Type: BLOOD SPECIMEN Ordering Facility: [facility] Address: [address] [place] [address] Performed By: #### 2 4321-2, 43543-4, #### [facility] CLIA [id number] [address] [place] [address] [place] Chloride [Moles/Vol] 109 mmol/L High 98-107 [facility] Comment on above: Order Comment: Speci men Type: BLOOD SPECIMEN Ordering Facility: [facility] Address: [address] [place] [address] Performed By: #### 2 4321-2, 74551-9, #### [facility] CLIA [id number] [address] [place] [address] [place] CO2 [Moles/Vol] 21 mmol/L Low 22-30 [facility] Comment on above: Order Comment: Speci men Type: BLOOD SPECIMEN Ordering Facility: [facility] Address: [address] [place] [address] Performed By: #### 2 4321-2, 79175-6, #### [facility] CLIA [id number] 1 [place] [address] [place] Creatinine [Mass/Vol] 1.04 mg/dL High 0.58-0.96 [facility] Comment on above: Order Comment: Speci men Type: BLOOD SPECIMEN Ordering Facility: [facility] Address: [address] [place] [address] Performed By: #### 2 4321-2, 51755-1, #### [facility] CLIA [id number] [address] Creatinine and Glomerular filtration rate.predicted panel (S/P/Bld) 53 mL/min/1.73m??? Low >=60 [facility] Comment on above: Order Comment: Rhina mason Type: BLOOD SPECIMEN Ordering Facility: [facility] Address: [address] [place] [address] Result Comment: Isa mated Glomerular Filtration Rate [...] actual GFR. Performed By: #### 2 4321-2, 18873-6, #### [facility] CLIA [id number] [address] Glucose [Mass/Vol] 103 mg/dL High 74-99 [facility] Comment on above: Order Comment: Rhina mason Type: BLOOD SPECIMEN Ordering Facility: [facility] Address: [address] [place] [address] Result Comment: The [employer] Diabetes Association (ADA) provides guidance for cutoff [...] Standards of Medical Care in Diabetes 2016, [employer] Diabetes Association. Diabetes Care. 2016.39(Suppl 1). Performed By: #### 2 4321-2, 23938-7, #### [facility] CLIA [id number] [address] STATES OF [facility] Potassium [Moles/Vol] 4.8 mmol/L Normal 3.7-5.1 [facility] Comment on above: Order Comment: Speci men Type: BLOOD SPECIMEN Ordering Facility: [facility] Address: [address] [place] [address] Performed By: #### 2 4321-2, 56093-4, #### [facility] CLIA [id number] [address] STATES OF [facility] Sodium [Moles/Vol] 140 mmol/L Normal 136-144 [facility] Comment on above: Order Comment: Speci men Type: BLOOD SPECIMEN Ordering Facility: [facility] Address: [address] [place] [address] Performed By: #### 2 4321-2, 95668-8, #### [facility] CLIA [id number] [address] STATES [facility] Urea nitrogen [Mass/Vol] 25 mg/dL High 7-21 [facility] Comment on above: Order Comment: Speci men Type: BLOOD SPECIMEN Ordering Facility: [facility] Address: [address] [place] [address] Performed By: #### 2 4321-2, 46465-1, #### [facility] CLIA [id number] [address] STATES OF [facility] CBC panel Auto (Bld)on 06-19 Erythrocyte distribution width (RBC) [Ratio] 15.9 % High 11.5-15.0 [facility] Comment on above: Order Comment: Speci men Type: BLOOD SPECIMEN Ordering Facility: [facility] Address: [address] [place] [address] Performed By: #### 2 4321-2, 11599-5, #### [facility] CLIA [id number] [address] [place] Hematocrit (Bld) [Volume fraction] 30.6 % Low 36.0-46.0 [facility] Comment on above: Order Comment: Speci men Type: BLOOD SPECIMEN Ordering Facility: [facility] Address: [address] [place] [address] Performed By: #### 2 4321-2, 16335-2, #### [facility] CLIA [id number] [address] OF [facility] Hemoglobin (Bld) [Mass/Vol] 9.5 g/dL Low 11.5-15.5 [facility] Comment on above: Order Comment: Speci men Type: BLOOD SPECIMEN Ordering Facility: [facility] Address: [address] [place] [address] Performed By: #### 2 4321-2, 98922-7, #### [facility] CLIA [id number] [address] OF [facility] MCH (RBC) [Entitic mass] 26.5 pg Normal 26.0-34.0 [facility] Comment on above: Order Comment: Speci men Type: BLOOD SPECIMEN Ordering Facility: [facility] Address: [address] [place] [address] Performed By: #### 2 4321-2, 47037-8, #### [facility] CLIA [id number] [address] OF [facility] MCHC (RBC) [Mass/Vol] 31.0 g/dL Normal 30.5-36.0 [facility] Comment on above: Order Comment: Speci men Type: BLOOD SPECIMEN Ordering Facility: [facility] Address: [address] [place] [address] Performed By: #### 2 4321-2, 03754-9, #### [facility] CLIA [id number] [address] MCV (RBC) [Entitic vol] 85.5 fL Normal 80.0-100.0 [facility] Comment on above: Order Comment: Speci men Type: BLOOD SPECIMEN Ordering Facility: [facility] Address: [address] [place] [address] Performed By: #### 2 4321-2, 11745-2, #### [facility] CLIA [id number] [address] [place] Nucleated RBC (Bld) [#/Vol] 10*3/uL Normal <0.01 [facility] Comment on above: Order Comment: Speci men Type: BLOOD SPECIMEN Ordering Facility: [facility] Address: [address] [place] [address] Performed By: #### 2 4321-2, 81743-1, #### [facility] CLIA [id number] [address] Platelet mean volume (Bld) [Entitic vol] 10.4 fL Normal 9.0-12.7 [facility] Comment on above: Order Comment: Speci men Type: BLOOD SPECIMEN Ordering Facility: [facility] Address: [address] [place] [address] Performed By: #### 2 1-2, 34345-5, #### [facility] CLIA [id number] [address] Platelets (Bld) [#/Vol] 245 10*3/uL Normal 150-400 [facility] Comment on above: Order Comment: Speci men Type: BLOOD SPECIMEN Ordering Facility: [facility] Address: [address] [place] [address] Performed By: #### 2 4321-2, 90560-8, #### [facility] CLIA [id number] [address] [place] RBC (Bld) [#/Vol] 3.58 10*6/uL Low 3.90-5.20 [facility] Comment on above: Order Comment: Speci men Type: BLOOD SPECIMEN Ordering Facility: [facility] Address: [address] [place] [address] Performed By: #### 2 4321-2, 22072-4, #### [facility] CLIA [id number] 1 [place] [address] [place] WBC (Bld) [#/Vol] 4.67 10*3/uL Normal 3.70-11.00 [facility] Comment on above: Order Comment: Speci men Type: BLOOD SPECIMEN Ordering Facility: [facility] Address: [address] [place] [address] [place] [address] Performed By: #### 2 4321-2, 26607-0, 32578-2 #### [facility] CLIA [id number] [address] [place] [id number] [facility] [place] CNDSon 06-19-2024 CNDS HNO ID: [id number] Author: DON EDWARDS DO Service: Hospital Medicine [...] eliquis. She was seen by therapy and [facility]p facility was recommended. He slowly was improving. She was discharged to [facility] facility in stable condition. OTHER PROBLEMS/DIAGNOSIS: Principal [...] call for appointment?: Yes Jared Evans MD [phone] [address] [facility] [address] PCP Requested Referral Follow-Up Appointment When: In 2 weeks Patient/Parents to call for appointment?: Yes Hermila Padilla MD [phone] [place] [address] PCP Requested Referral Follow-Up Appointment For hydronephrosis and renal lesion When: In 2 weeks Patient/Parents to call for appointment?: Yes Mikhail Vuong Jr., MD [phone] [address] [place] [address] PCP Requested Referral Follow-Up Appointment With: neurology When: In 4 weeks Patient/Parents to call for appointment?: Yes Additional Provider to Provider Information: Treatment Team: Attending Provider: Don Edwards DO Consulting: Pratibha Logan MD Consulting: Torsten Silva MD Primary Service: BLAS ALVAREZ [facility] Critical Issues: SPECIALIST FOLLOW-UP: urology, cardiology, neurology LABS AND PROCEDURES PENDING AT DISCHARGE: No pending results. FOLLOW-UP APPOINTMENTS ALREADY SCHEDULED WITH A [facility] PROVIDER: No future appointments. Discharge Information Row Name ED to Hosp-Admission (Current) from 06/10/2024 in [place] 81 NEURO/CARD Rehab Facility Agency [facility] ALLERGIES Allergen Reactions Percocet [Oxycodone* Itching DISCHARGE MEDICA (more content not included)... Normal [facility] Basic metabolic 2000 panelon 06-18-2024 Anion gap [Moles/Vol] 10 mmol/L Normal 8-15 [facility] Comment on above: Order Comment: Speci men Type: BLOOD SPECIMEN Ordering Facility: [facility] Address: [address] [place] [address] Performed By: #### 2 4321-2, 51018-0, #### [facility] CLIA [id number] 1 [place] [address] [place] Calcium [Mass/Vol] 8.9 mg/dL Normal 8.5-10.2 [facility] Comment on above: Order Comment: Speci men Type: BLOOD SPECIMEN Ordering Facility: [facility] Address: [address] [place] [address] Performed By: #### 2 4321-2, 33463-4, #### [facility] CLIA [id number] 1 [place] [address] [place] Chloride [Moles/Vol] 110 mmol/L High 98-107 [facility] Comment on above: Order Comment: Speci men Type: BLOOD SPECIMEN Ordering Facility: [facility] Address: [address] [place] [address] Performed By: #### 2 4321-2, 15719-0, #### [facility] CLIA [id number] 1 [place] [address] [place] CO2 [Moles/Vol] 21 mmol/L Low 22-30 [facility] Comment on above: Order Comment: Specrobson mason Type: BLOOD SPECIMEN Ordering Facility: [facility] Address: [address] [place] [address] Performed By: #### 2 4321-2, 01934-4, #### [facility] CLIA [id number] [address] OF [facility] Creatinine [Mass/Vol] 0.96 mg/dL Normal 0.58-0.96 [facility] Comment on above: Order Comment: Rhina mason Type: BLOOD SPECIMEN Ordering Facility: [facility] Address: [address] [place] [address] Performed By: #### 2 4321-2, 92494-5, #### [facility] CLIA [id number] [address] Creatinine and Glomerular filtration rate.predicted panel (S/P/Bld) 58 mL/min/1.73m??? Low >=60 [facility] Comment on above: Order Comment: Specrobson mason Type: BLOOD SPECIMEN Ordering Facility: [facility] Address: [address] [place] [address] Result Comment: Isa mated Glomerular Filtration Rate [...] actual GFR. Performed By: #### 2 4321-2, 52398-7, #### [facility] CLIA [id number] [address] [place] Glucose [Mass/Vol] 112 mg/dL High 74-99 [facility] Comment on above: Order Comment: Samiri men Type: BLOOD SPECIMEN Ordering Facility: [facility] Address: [address] [place] [address] Result Comment: The [employer] Diabetes Association (ADA) provides guidance for cutoff [...] Standards of Medical Care in Diabetes 2016, [place] Diabetes Association. Diabetes Care. 2016.39(Suppl 1). Performed By: #### 2 4321-2, 23361-4, #### [facility] CLIA [id number] 1 [place] [address] [place] Potassium [Moles/Vol] 4.4 mmol/L Normal 3.7-5.1 [facility] Comment on above: Order Comment: Speci men Type: BLOOD SPECIMEN Ordering Facility: [facility] Address: [address] [place] [address] Performed By: #### 2 4321-2, 59794-6, #### [facility] CLIA [id number] 1 [place] [address] [place] Sodium [Moles/Vol] 141 mmol/L Normal 136-144 [facility] Comment on above: Order Comment: Speci men Type: BLOOD SPECIMEN Ordering Facility: [facility] Address: [address] [place] [address] Performed By: #### 2 4321-2, 33139-4, #### [facility] CLIA [id number] 1 [place] [address] [place] Urea nitrogen [Mass/Vol] 22 mg/dL High 7-21 [facility] Comment on above: Order Comment: Speci men Type: BLOOD SPECIMEN Ordering Facility: [facility] Address: [address] [place] [id number] Performed By: #### 2 4321-2, 31987-2, 92868-9 #### [facility] CLIA [id number] [address] [place] CBC panel Auto (Bld)on 06-18 Erythrocyte distribution width (RBC) [Ratio] 15.9 % High 11.5-15.0 [facility] Comment on above: Order Comment: Speci men Type: BLOOD SPECIMENOrdering Facility: [facility] Address: [address] [place] [address] Performed By: #### 5 8410-2 ####[facility] [id number] [address] [place] Hematocrit (Bld) [Volume fraction] 34.3 % Low 36.0-46.0 [facility] Comment on above: Order Comment: Speci men Type: BLOOD SPECIMENOrdering Facility: [facility] Address: [address] [place] [address] Performed By: #### 5 8410-2 ####[facility] [id number] [address] [place] Hemoglobin (Bld) [Mass/Vol] 10.7 g/dL Low 11.5-15.5 [facility] Comment on above: Order Comment: Speci men Type: BLOOD SPECIMENOrdering Facility: [facility] Address: [address] [place] [address] Performed By: #### 5 8410-2 ####[facility]IA [id number] [address] [place] MCH (RBC) [Entitic mass] 26.7 pg Normal 26.0-34.0 [facility] Comment on above: Order Comment: Speci men Type: BLOOD SPECIMENOrdering Facility: [facility] Address: [address] [place] [address] Performed By: #### 5 8410-2 ####[facility]ORY[facility]IA [id number] [address] [place] MCHC (RBC) [Mass/Vol] 31.2 g/dL Normal 30.5-36.0 [facility] Comment on above: Order Comment: Speci men Type: BLOOD SPECIMENOrdering Facility: [facility] Address: [address] [place] [address] Performed By: #### 5 8410-2 ####[facility]ORY[facility]IA [id number] [address] MCV (RBC) [Entitic vol] 85.5 fL Normal 80.0-100.0 [facility] Comment on above: Order Comment: Speci men Type: BLOOD SPECIMENOrdering Facility: [facility] Address: [address] [place] [address] Performed By: #### 5 8410-2 ####[facility]ORYCLIA [id number] [address] Nucleated RBC (Bld) [#/Vol] 10*3/uL Normal <0.01 [facility] Comment on above: Order Comment: Speci men Type: BLOOD SPECIMENOrdering Facility: [facility] Address: [address] [place] [address] Performed By: #### 5 8410-2 ####[facility]ORYCLIA [id number] [address] Platelet mean volume (Bld) [Entitic vol] 10.0 fL Normal 9.0-12.7 [facility] Comment on above: Order Comment: Speci men Type: BLOOD SPECIMENOrdering Facility: [facility] Address: [address] [place] [address] Performed By: #### 5 8410-2 ####[facility]ORYCLIA [id number] [address] Platelets (Bld) [#/Vol] 273 10*3/uL Normal 150-400 [facility] Comment on above: Order Comment: Speci men Type: BLOOD SPECIMENOrdering Facility: [facility] Address: [address] [place] [address] Performed By: #### 5 8410-2 ####[facility]ORYCLIA [id number] [address] [place] RBC (Bld) [#/Vol] 4.01 10*6/uL Normal 3.90-5.20 [facility] Comment on above: Order Comment: Speci men Type: BLOOD SPECIMENOrdering Facility: [facility] Address: [address] [place] [address] Performed By: #### 5 8410-2 ####[facility]ORYCLIA [id number] [address] OF [facility] WBC (Bld) [#/Vol] 5.29 10*3/uL Normal 3.70-11.00 [facility] Comment on above: Order Comment: Speci men Type: BLOOD SPECIMENOrdering Facility: [facility] Address: [address] [place] [address] Performed By: #### 5 8410-2 ####[facility]ORYCLIA [id number] [address] Hepatic function 2000 panelo n 06-18-2024 Albumin [Mass/Vol] 3.5 g/dL Low 3.9-4.9 [facility] Comment on above: Order Comment: Speci men Type: BLOOD SPECIMEN Ordering Facility: [facility] Address: [address] [place] [address] Performed By: #### 2 4321-2, 82998-8, #### [facility] CLIA [id number] [address] ALP [Catalytic activity/Vol] 80 U/L Normal 34-123 [facility] Comment on above: Order Comment: Speci men Type: BLOOD SPECIMEN Ordering Facility: [facility] Address: [address] [place] [address] Performed By: #### 2 4321-2, 13353-4, #### [facility] CLIA [id number] [address] ALT With P-5'-P [Catalytic activity/Vol] 16 U/L Normal 7-38 [facility] Comment on above: Order Comment: Speci men Type: BLOOD SPECIMEN Ordering Facility: [facility] Address: [address] [place] [address] Performed By: #### 2 4321-2, 92239-4, #### [facility] CLIA [id number] [address] OF [facility] AST With P-5'-P [Catalytic activity/Vol] 20 U/L Normal 13-35 [facility] Comment on above: Order Comment: Speci men Type: BLOOD SPECIMEN Ordering Facility: [facility] Address: [address] [place] [address] Performed By: #### 2 4321-2, 00878-5, #### [facility] CLIA [id number] [address] STATES OF [facility] Bilirubin [Mass/Vol] 0.3 mg/dL Normal 0.2-1.3 [facility] Comment on above: Order Comment: Speci men Type: BLOOD SPECIMEN Ordering Facility: [facility] Address: [address] [place] [address] Performed By: #### 2 4321-2, 38138-4, #### [facility] CLIA [id number] [address] Bilirubin.conjugated [Mass/Vol] mg/dL Normal <0.2 [facility] Comment on above: Order Comment: Speci men Type: BLOOD SPECIMEN Ordering Facility: [facility] Address: [address] [place] [address] Performed By: #### 2 4321-2, 49105-4, #### [facility] CLIA [id number] [address] STATES OF [facility] Protein [Mass/Vol] 6.0 g/dL Low 6.3-8.0 [facility] Comment on above: Order Comment: Speci men Type: BLOOD SPECIMEN Ordering Facility: [facility] Address: [address] [place] [address] Performed By: #### 2 4321-2, 86696-8, 83679-8 #### [facility] CLIA [id number] [address] [place] [id number] [facility] Magnesium SerPl-mCncon 06-18 Magnesium [Mass/Vol] 1.9 mg/dL Normal 1.7-2.3 [facility] Comment on above: Order Comment: Speci men Type: BLOOD SPECIMEN Ordering Facility: [facility] Address: [address] [place] [id number] Performed By: #### 2 4321-2, 60233-1, 28759-3 #### [facility] CLIA [id number] [address] NUTRITIONon 06-18-2024 NUTRITION HNO ID: [id number] Author: NELSON AVIL[address] Service: Nutrition Therapy [...] Obtained From: Patient Weight Change: 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(s) ([employer]; 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) MNT Billing: $ Initial Assessment: 1-15 minutes SIGNATURE: Nelson Avila RD PATIENT NAME: Mel Castillo DATE: June 18, 2024 TIME: 11:18 AM Normal [facility] THERAPY NTon 06-18-2024 THERAPY NT HNO ID: [id number] Author: SELENA BARR, PT Service: Physical Therapy Author Type: Physical Therapist Type: Therapy (PT/OT/Speech/Resp) Filed: 06/18/2024 12:53 Note Text: Physical Therapy Treatment Summary SERVICE DATE: 06/18/2024 SERVICE TIME: 1056 to 1129 ROOM: [place] [address] PT 6 Clicks Score: 16 DISCHARGE RECOMMENDATIONS [...] Lack of coordination-other TREATMENT INTERVENTIONS Therapeutic Activity (56549) Therapeutic Activity (44048) Treatment Minutes: 25 $ Therapeutic Activity (69353) Billed Units: 2 units Timed Code Treatment [...] Balance, Non-func (more content not included)... Normal [facility] THERAPY NT HNO ID: [id number] Author: ULI JEFFERSON OTR/L Service: Occupational Therapy Author Type: Occupational Therapist Type: Therapy (PT/OT/Speech/Resp) Filed: 06/18/2024 13:34 Note Text: Occupational Therapy Treatment Summary SERVICE DATE: 06/18/2024 SERVICE TIME: 1130 to 1154 ROOM: [place] [address] OT 6 Clicks Score: 15 DISCHARGE RECOMMENDATIONS [...] and signs-other TREATMENT INTERVENTIONS Self Mcfp Management (08234), Cognitive Training (65649 and 90196) Timed Code Treatment (minutes): 24 Skilled Treatment Time (minutes): 24 Self Mcfp Management (34501) Treatment Minutes: 11 $ Self Mcfp Management (86197) Billed Units: 1 unit Minimal assist with meal set-up. Cueing for physical assist with maintaining functional grasp on packaging to tear open. Pt demonstrated impaired hand-eye coordination/visual spatial awareness with bringing food to mouth. Provided further cueing and tactile awareness/sequencing to maximize ease with self feeding. Cognitive Training First 15 Minutes (74690) : 13 $ Cognitive Training First 15 Minutes (29467) Billed Units: 1 unit Facilitated completion of [facility] Mental Examination (UMS) to screen performance with [...] Occupational Therapy, Safety/Judgment, Sitting Balance to Improve [place] with ADLs/Self-Care, Cognitive Skills, Command Following, Expected Functional Level, Feeding Tasks, Low Vision Strategies, Positioning, Visual Scanning/Attention Activities THERAPEUTIC SKILLS USED Activity Dosing, Cues for (more content not included)... Normal [facility] CBC panel Auto (Bld)on 06-17 Erythrocyte distribution width (RBC) [Ratio] 15.7 % High 11.5-15.0 [facility] Comment on above: Order Comment: Speci isabella Type: BLOOD SPECIMEN Ordering Facility: [facility] Address: [address] [place] [address] Performed By: #### 2 4321-2, 09281-3, #### [facility] CLIA [id number] [address] OF [facility] Hematocrit (Bld) [Volume fraction] 35.1 % Low 36.0-46.0 [facility] Comment on above: Order Comment: Speci isabella Type: BLOOD SPECIMEN [facility]ing [facility] Address: [address] [place] [address] Performed By: #### 2 4321-2, 10265-1, #### [facility] CLIA [id number] [address] [facility] Hemoglobin (Bld) [Mass/Vol] 11.0 g/dL Low 11.5-15.5 [facility] Comment on above: Order Comment: Speci men Type: BLOOD SPECIMEN Ordering Facility: [facility] Address: [address] [place] [address] Performed By: #### 2 4321-2, 77709-9, #### [facility] CLIA [id number] [address] MCH (RBC) [Entitic mass] 26.4 pg Normal 26.0-34.0 [facility] Comment on above: Order Comment: Speci men Type: BLOOD SPECIMEN Ordering Facility: [facility] Address: [address] [place] [address] Performed By: #### 2 4321-2, 37348-3, #### [facility] CLIA [id number] [address] MCHC (RBC) [Mass/Vol] 31.3 g/dL Normal 30.5-36.0 [facility] Comment on above: Order Comment: Speci men Type: BLOOD SPECIMEN Ordering Facility: [facility] Address: [address] [place] [address] Performed By: #### 2 4321-2, 21709-3, #### [facility] CLIA [id number] [address] [place] MCV (RBC) [Entitic vol] 84.4 fL Normal 80.0-100.0 [facility] Comment on above: Order Comment: Speci men Type: BLOOD SPECIMEN Ordering Facility: [facility] Address: [address] [place] [address] Performed By: #### 2 4321-2, 75473-4, #### [facility] CLIA [id number] [address] [place] Nucleated RBC (Bld) [#/Vol] 10*3/uL Normal <0.01 [facility] Comment on above: Order Comment: Speci men Type: BLOOD SPECIMEN Ordering Facility: [facility] Address: [address] [place] [address] Performed By: #### 2 1-2, 20877-7, #### [facility] CLIA [id number] [address] [place] Platelet mean volume (Bld) [Entitic vol] 10.1 fL Normal 9.0-12.7 [facility] Comment on above: Order Comment: Speci men Type: BLOOD SPECIMEN Ordering Facility: [facility] Address: [address] [place] [address] Performed By: #### 2 4321-2, 88531-3, #### [facility] CLIA [id number] 1 [place] [address] [place] Platelets (Bld) [#/Vol] 294 10*3/uL Normal 150-400 [facility] Comment on above: Order Comment: Speci men Type: BLOOD SPECIMEN Ordering Facility: [facility] Address: [address] [place] [address] Performed By: #### 2 4321-2, 42869-7, #### [facility] CLIA [id number] [address] [place] RBC (Bld) [#/Vol] 4.16 10*6/uL Normal 3.90-5.20 [facility] Comment on above: Order Comment: Speci men Type: BLOOD SPECIMEN Ordering Facility: [facility] Address: [address] [place] [address] Performed By: #### 2 4321-2, 98851-7, #### [facility] CLIA [id number] [address] [place] WBC (Bld) [#/Vol] 5.63 10*3/uL Normal 3.70-11.00 [facility] Comment on above: Order Comment: Speci men Type: BLOOD SPECIMEN Ordering Facility: [facility] Address: [address] [place] [address] Performed By: #### 2 4321-2, 66367-9, #### [facility] CLIA [id number] [address] [place] CBC panel Auto (Bld)on 06-16 Erythrocyte distribution width (RBC) [Ratio] 15.4 % High 11.5-15.0 [facility] Comment on above: Order Comment: Speci men Type: BLOOD SPECIMEN Ordering Facility: [facility] Address: [address] [place] [address] Performed By: #### 2 4321-2, 25336-6, #### [facility] CLIA [id number] [address] [place] Hematocrit (Bld) [Volume fraction] 34.9 % Low 36.0-46.0 [facility] Comment on above: Order Comment: Speci men Type: BLOOD SPECIMEN Ordering Facility: [facility] Address: [address] [place] [address] Performed By: #### 2 4321-2, 43822-7, #### [facility] CLIA [id number] [address] Hemoglobin (Bld) [Mass/Vol] 10.9 g/dL Low 11.5-15.5 [facility] Comment on above: Order Comment: Speci men Type: BLOOD SPECIMEN Ordering Facility: [facility] Address: [address] [place] [address] Performed By: #### 2 4321-2, 74252-9, #### [facility] CLIA [id number] [address] MCH (RBC) [Entitic mass] 26.4 pg Normal 26.0-34.0 [facility] Comment on above: Order Comment: Speci men Type: BLOOD SPECIMEN Ordering Facility: [facility] Address: [address] [place] [address] Performed By: #### 2 4320-2, 11683-7, #### [facility] CLIA [id number] [address] MCHC (RBC) [Mass/Vol] 31.2 g/dL Normal 30.5-36.0 [facility] Comment on above: Order Comment: Speci men Type: BLOOD SPECIMEN Ordering Facility: [facility] Address: [address] [place] [address] Performed By: #### 2 4321-2, 20564-7, #### [facility] CLIA [id number] [address] MCV (RBC) [Entitic vol] 84.5 fL Normal 80.0-100.0 [facility] Comment on above: Order Comment: Speci men Type: BLOOD SPECIMEN Ordering Facility: [facility] Address: [address] [place] [address] Performed By: #### 2 4321-2, 54527-4, #### [facility] CLIA [id number] [address] [place] Nucleated RBC (Bld) [#/Vol] 10*3/uL Normal <0.01 [facility] Comment on above: Order Comment: Speci men Type: BLOOD SPECIMEN Ordering Facility: [facility] Address: [address] [place] [address] Performed By: #### 2 4321-2, 50479-2, #### [facility] CLIA [id number] [address] [place] Platelet mean volume (Bld) [Entitic vol] 9.8 fL Normal 9.0-12.7 [facility] Comment on above: Order Comment: Speci men Type: BLOOD SPECIMEN Ordering Facility: [facility] Address: [address] [place] [address] Performed By: #### 2 432-2, 48287-4, #### [facility] CLIA [id number] [address] [place] Platelets (Bld) [#/Vol] 274 10*3/uL Normal 150-400 [facility] Comment on above: Order Comment: Speci men Type: BLOOD SPECIMEN Ordering Facility: [facility] Address: [address] [place] [address] Performed By: #### 2 1-2, 67123-0, #### [facility] CLIA [id number] [address] [place] RBC (Bld) [#/Vol] 4.13 10*6/uL Normal 3.90-5.20 [facility] Comment on above: Order Comment: Speci men Type: BLOOD SPECIMEN Ordering Facility: [facility] Address: [address] [place] [address] Performed By: #### 2 4321-2, 40117-5, #### [facility] CLIA [id number] [address] [place] WBC (Bld) [#/Vol] 6.06 10*3/uL Normal 3.70-11.00 [facility] Comment on above: Order Comment: Speci men Type: BLOOD SPECIMEN Ordering Facility: [facility] Address: [address] [place] [address] Performed By: #### 2 4321-2, 62164-3, #### [facility] CLIA [id number] [address] [place] CBC panel Auto (Bld)on 06-15 Erythrocyte distribution width (RBC) [Ratio] 15.4 % High 11.5-15.0 [facility] Comment on above: Order Comment: Speci men Type: BLOOD SPECIMEN Ordering Facility: [facility] Address: [address] [place] [address] Performed By: #### 2 4321-2, 59771-1, #### [facility] CLIA [id number] [address] Hematocrit (Bld) [Volume fraction] 33.9 % Low 36.0-46.0 [facility] Comment on above: Order Comment: Speci men Type: BLOOD SPECIMEN Ordering Facility: [facility] Address: [address] [place] [address] Performed By: #### 2 4321-2, 15255-2, #### [facility] CLIA [id number] [address] [place] Hemoglobin (Bld) [Mass/Vol] 10.6 g/dL Low 11.5-15.5 [facility] Comment on above: Order Comment: Speci men Type: BLOOD SPECIMEN Ordering Facility: [facility] Address: [address] [place] [address] Performed By: #### 2 4321-2, 08500-9, #### [facility] CLIA [id number] [address] [place] MCH (RBC) [Entitic mass] 26.2 pg Normal 26.0-34.0 [facility] Comment on above: Order Comment: Speci men Type: BLOOD SPECIMEN Ordering Facility: [facility] Address: [address] [place] [address] Performed By: #### 2 1-2, 78840-4, #### [facility] CLIA [id number] [address] MCHC (RBC) [Mass/Vol] 31.3 g/dL Normal 30.5-36.0 [facility] Comment on above: Order Comment: Speci men Type: BLOOD SPECIMEN Ordering Facility: [facility] Address: [address] [place] [address] Performed By: #### 2 1-2, 50359-3, #### [facility] CLIA [id number] [address] [place] MCV (RBC) [Entitic vol] 83.9 fL Normal 80.0-100.0 [facility] Comment on above: Order Comment: Speci men Type: BLOOD SPECIMEN Ordering Facility: [facility] Address: [address] [place] [address] Performed By: #### 2 4320-2, 24876-4, #### [facility] CLIA [id number] [address] Nucleated RBC (Bld) [#/Vol] 10*3/uL Normal <0.01 [facility] Comment on above: Order Comment: Speci men Type: BLOOD SPECIMEN Ordering Facility: [facility] Address: [address] [place] [address] Performed By: #### 2 1-2, 55230-0, #### [facility] CLIA [id number] [address] Platelet mean volume (Bld) [Entitic vol] 9.9 fL Normal 9.0-12.7 [facility] Comment on above: Order Comment: Speci men Type: BLOOD SPECIMEN Ordering Facility: [facility] Address: [address] [place], [place] [address] Performed By: #### 2 4321-2, 91263-6, 84919-6 #### [facility] CLIA [id number] [address] Platelets (Bld) [#/Vol] 280 10*3/uL Normal 150-400 [facility] Comment on above: Order Comment: Speci men Type: BLOOD SPECIMEN Ordering Facility: [facility] Address: [address] [place] [address] Performed By: #### 2 4321-2, 45822-3, #### [facility] CLIA [id number] [address] RBC (Bld) [#/Vol] 4.04 10*6/uL Normal 3.90-5.20 [facility] Comment on above: Order Comment: Speci men Type: BLOOD SPECIMEN Ordering Facility: [facility] Address: [address] [place] [address] Performed By: #### 2 4321-2, 63719-0, #### [facility] CLIA [id number] [address] WBC (Bld) [#/Vol] 5.80 10*3/uL Normal 3.70-11.00 [facility] Comment on above: Order Comment: Speci men Type: BLOOD SPECIMEN Ordering Facility: [facility] Address: [address] [place] [address] Performed By: #### 2 4321-2, 09743-1, #### [facility] CLIA [id number] [address] THERAPY NTon 06-15-2024 THERAPY NT HNO ID: [id number] Author: MEHREEN MANCERA PT Service: Physical Therapy Author Type: Physical Therapist Type: Therapy (PT/OT/Speech/Resp) Filed: 06/15/2024 16:13 Note Text: Physical Therapy Treatment Summary SERVICE DATE: 06/15/2024 SERVICE TIME: 1518 to 1547 ROOM: [id number] PT 6 Clicks Score: 13 DISCHARGE RECOMMENDATIONS [...] Lack of coordination-other TREATMENT INTERVENTIONS Therapeutic Activity (12156), Neuromuscular Reeducation (40263) Timed Code Treatment (minutes): 29 Skilled Treatment Time (minutes): 29 Therapeutic Activity (47380) Treatment Minutes: 10 $ Therapeutic Activity (35880) Billed Units: 1 unit Neuromuscular Reeducation (23478) Treatment Minutes: 19 $ Neuromuscular Reeducation (97143) Billed Units: 1 unit Sitting balance and [...] to control (more content not included)... Normal [facility] CBC panel Auto (Bld)on 06-14 Erythrocyte distribution width (RBC) [Ratio] 15.5 % High 11.5-15.0 [facility] Comment on above: Order Comment: Speci men Type: BLOOD SPECIMENOrdering Facility: [facility] Address: [address] [place] [address] Performed By: #### 5 8410-2 ####[facility] [id number] [address] Hematocrit (Bld) [Volume fraction] 34.8 % Low 36.0-46.0 [facility] Comment on above: Order Comment: Speci men Type: BLOOD SPECIMENOrdering Facility: [facility] Address: [address] [place] [address] Performed By: #### 5 8410-2 ####[facility]IA [id number] [address] [facility] Hemoglobin (Bld) [Mass/Vol] 11.0 g/dL Low 11.5-15.5 [facility] Comment on above: Order Comment: Speci men Type: BLOOD SPECIMENOrdering Facility: [facility] Address: [address] [place] [address] Performed By: #### 5 8410-2 ####[facility]IA [id number] [address] MCH (RBC) [Entitic mass] 26.6 pg Normal 26.0-34.0 [facility] Comment on above: Order Comment: Speci men Type: BLOOD SPECIMENOrdering Facility: [facility] Address: [address] [place] [address] Performed By: #### 5 8410-2 ####[facility]IA [id number] [address] [place] MCHC (RBC) [Mass/Vol] 31.6 g/dL Normal 30.5-36.0 [facility] Comment on above: Order Comment: Speci men Type: BLOOD SPECIMENOrdering Facility: [facility] Address: [address] [place] [address] Performed By: #### 5 8410-2 ####[facility]ORYCLIA [id number] [place] [address] [place] MCV (RBC) [Entitic vol] 84.3 fL Normal 80.0-100.0 [facility] Comment on above: Order Comment: Speci men Type: BLOOD SPECIMENOrdering Facility: [facility] Address: [address] [place] [address] Performed By: #### 5 8410-2 ####[facility]ORYCLIA [id number] [address] [place] Nucleated RBC (Bld) [#/Vol] 10*3/uL Normal <0.01 [facility] Comment on above: Order Comment: Speci men Type: BLOOD SPECIMENOrdering Facility: [facility] Address: [address] [place] [address] Performed By: #### 5 8410-2 ####[facility]CLIA [id number] [address] [place] Platelet mean volume (Bld) [Entitic vol] 9.7 fL Normal 9.0-12.7 [facility] Comment on above: Order Comment: Speci men Type: BLOOD SPECIMENOrdering Facility: [facility] Address: [address] [place] [address] Performed By: #### 5 8410-2 ####[facility]ORYCLIA [id number] [address] [place] Platelets (Bld) [#/Vol] 278 10*3/uL Normal 150-400 [facility] Comment on above: Order Comment: Speci men Type: BLOOD SPECIMENOrdering Facility: [facility] Address: [address] [place] [address] Performed By: #### 5 8410-2 ####[facility]ORYCLIA [id number] [address] [place] RBC (Bld) [#/Vol] 4.13 10*6/uL Normal 3.90-5.20 [facility] Comment on above: Order Comment: Speci men Type: BLOOD SPECIMENOrdering Facility: [facility] Address: [address] [place] [address] Performed By: #### 5 8410-2 ####[facility]ORYCLIA [id number] [place] [address] [place] WBC (Bld) [#/Vol] 4.70 10*3/uL Normal 3.70-11.00 [facility] Comment on above: Order Comment: Speci men Type: BLOOD SPECIMENOrdering Facility: [facility] Address: [facility] [place] [id number] Performed By: #### 5 8410-2 ####[facility]ORYCLIA [id number] [place] [address] [facility] NURSING PROGon 06-14-2024 NURSING PROG HNO ID: [id number] Author: JOSE JERNIGAN RN Service: Nursing Author [...] - ordered XR and lidocaine patch Normal [facility] XR SHLDR >/=3V AP/JASON AP/OTH R [...] portions of the right lung are clear. Research Environmental Scientist: DEVEN Transcribe Date/Time: Jun 14 2024 1:33P Dictated by : DEV WELCH MD This examination was interpreted and the report reviewed and electronically signed by: DEV WELCH MD on Jun 14 2024 1:35PM EST [id number] Normal [facility] ALLIED HEALTHon 06-13-2024 ALLIED HEALTH HNO ID: [id number] Author: ALFRED DALEY Chaplain Service: ? Author Type: Cambering Machine Operator Type: Allied Health Filed: 06/13/2024 14:38 Note Text: SPIRITUAL CARE ASSESSMENT SERVICE DATE: 06/13/2024 SERVICE TIME: 11:53 Visit with: Patient Length of visit (minutes): 5 Orthodoxy / Spirituality: Pt did not Disc. Reason: [...] TIME: 2:31 PM PAGER/CONTACT #: [phone] Normal [facility] Basic metabolic 2000 panelon 06-13-2024 Anion gap [Moles/Vol] 11 mmol/L Normal 8-15 [facility] Comment on above: Order Comment: Speci men Type: BLOOD SPECIMEN Ordering Facility: [facility] Address: [address] [place] [address] Performed By: #### 2 4321-2, 76260-8, #### [facility] CLIA [id number] [address] [place] [address] [place] Calcium [Mass/Vol] 8.9 mg/dL Normal 8.5-10.2 [facility] Comment on above: Order Comment: Speci men Type: BLOOD SPECIMEN Ordering Facility: [facility] Address: [address] [place] [address] Performed By: #### 2 4321-2, 36269-7, #### [facility] CLIA [id number] [address] [place] [address] [place] Chloride [Moles/Vol] 101 mmol/L Normal 98-107 [facility] Comment on above: Order Comment: Speci men Type: BLOOD SPECIMEN Ordering Facility: [facility] Address: [facility] [place] [address] Performed By: #### 2 4321-2, 55817-3, #### [facility] CLIA [id number] [address] [facility] CO2 [Moles/Vol] 24 mmol/L Normal 22-30 [facility] Comment on above: Order Comment: Speci men Type: BLOOD SPECIMEN Ordering Facility: [facility] Address: [address] [place] [address] Performed By: #### 2 4321-2, 31487-6, #### [facility] CLIA [id number] [address] [facility] Creatinine [Mass/Vol] 1.04 mg/dL High 0.58-0.96 [facility] Comment on above: Order Comment: Speci men Type: BLOOD SPECIMEN Ordering Facility: [facility] Address: [address] [place] [address] Performed By: #### 2 4321-2, 94150-8, #### [facility] CLIA [id number] [address] Creatinine and Glomerular filtration rate.predicted panel (S/P/Bld) 53 mL/min/1.73m??? Low >=60 [facility] Comment on above: Order Comment: Speci men Type: BLOOD SPECIMEN Ordering Facility: [facility] Address: [address] [place] [address] Result Comment: Isa mated Glomerular Filtration Rate [...] actual GFR. Performed By: #### 2 4321-2, 68488-1, #### [facility] CLIA [id number] [address] [place] [address] [place] Glucose [Mass/Vol] 95 mg/dL Normal 74-99 [facility] Comment on above: Order Comment: Rhina mason Type: BLOOD SPECIMEN Ordering Facility: [facility] Address: [address] [place] [address] Result Comment: The [employer] Diabetes [employer] (ADA) provides guidance for cutoff [...] Standards of Medical Care in Diabetes 2016, [employer]. Diabetes Care. 2016.39(Suppl 1). Performed By: #### 2 4321-2, 75845-5, #### [facility] CLIA [id number] [address] [place] [address] [place] Potassium [Moles/Vol] 3.8 mmol/L Normal 3.7-5.1 [facility] Comment on above: Order Comment: Rhina mason Type: BLOOD SPECIMEN Ordering Facility: [facility] Address: [address] [place] [address] Performed By: #### 2 4321-2, 23718-9, #### [facility] CLIA [id number] [address] [place] [address] [place] Sodium [Moles/Vol] 136 mmol/L Normal 136-144 [facility] Comment on above: Order Comment: Rhina mason Type: BLOOD SPECIMEN Ordering Facility: [facility] Address: [address] [place], [place] [address] Performed By: #### 2 4321-2, 74514-6, #### [facility] CLIA [id number] [address] [place] Urea nitrogen [Mass/Vol] 16 mg/dL Normal 7-21 [facility] Comment on above: Order Comment: Speci men Type: BLOOD SPECIMEN Ordering Facility: [facility] Address: [address] [place] [address] Performed By: #### 2 4321-2, 06583-5, 35323-9 #### [place] [facility] CLIA [id number] [address] [place] CBC panel Auto (Bld)on 06-13 Erythrocyte distribution width (RBC) [Ratio] 15.5 % High 11.5-15.0 [facility] Comment on above: Order Comment: Speci men Type: BLOOD SPECIMENOrdering Facility: [facility] Address: [address] [place] [address] Performed By: #### 5 8410-2 ####[place] [facility] [id number] [address] [place] Hematocrit (Bld) [Volume fraction] 33.1 % Low 36.0-46.0 [facility] Comment on above: Order Comment: Speci men Type: BLOOD SPECIMENOrdering Facility: [facility] Address: [address] [place] [address] Performed By: #### 5 8410-2 ####[place] [facility] [id number] [address] [place] Hemoglobin (Bld) [Mass/Vol] 10.2 g/dL Low 11.5-15.5 [facility] Comment on above: Order Comment: Speci men Type: BLOOD SPECIMENOrdering Facility: [facility] Address: [address] [place] [address] Performed By: #### 5 8410-2 ####[facility] LABORATORYCLIA [id number] [address] [place] MCH (RBC) [Entitic mass] 26.5 pg Normal 26.0-34.0 [facility] Comment on above: Order Comment: Speci men Type: BLOOD SPECIMENOrdering Facility: [facility] Address: [address] [place] [address] Performed By: #### 5 8410-2 ####[facility] LABORATORYCLIA [id number] [address] MCHC (RBC) [Mass/Vol] 30.8 g/dL Normal 30.5-36.0 [facility] Comment on above: Order Comment: Speci men Type: BLOOD SPECIMENOrdering Facility: [facility] Address: [address] [place] [address] Performed By: #### 5 8410-2 ####[facility] LABORATORYCLIA [id number] [address] OF [facility] MCV (RBC) [Entitic vol] 86.0 fL Normal 80.0-100.0 [facility] Comment on above: Order Comment: Speci men Type: BLOOD SPECIMENOrdering Facility: [facility] Address: [address] [place] [address] Performed By: #### 5 8410-2 ####[facility] LABORATORYCLIA [id number] [address] Nucleated RBC (Bld) [#/Vol] 10*3/uL Normal <0.01 [facility] Comment on above: Order Comment: Speci men Type: BLOOD SPECIMENOrdering Facility: [facility] Address: [address] [place] [address] Performed By: #### 5 8410-2 ####[facility] LABORATORYCLIA [id number] [address] Platelet mean volume (Bld) [Entitic vol] 9.6 fL Normal 9.0-12.7 [facility] Comment on above: Order Comment: Speci men Type: BLOOD SPECIMENOrdering Facility: [facility] Address: [address] [place] [address] Performed By: #### 5 8410-2 ####[facility] LABORATORYCLIA [id number] [address] [place] Platelets (Bld) [#/Vol] 287 10*3/uL Normal 150-400 [facility] Comment on above: Order Comment: Speci men Type: BLOOD SPECIMENOrdering Facility: [facility] Address: [address] [place] [address] Performed By: #### 5 8410-2 ####[facility] LABORATORYCLIA [id number] [place] [address] [place] RBC (Bld) [#/Vol] 3.85 10*6/uL Low 3.90-5.20 [facility] Comment on above: Order Comment: Speci men Type: BLOOD SPECIMENOrdering Facility: [facility] Address: [address] [place] [address] Performed By: #### 5 8410-2 ####[facility] LABORATORYCLIA [id number] [place] [address] [place] [facility] WBC (Bld) [#/Vol] 4.79 10*3/uL Normal 3.70-11.00 [facility] Comment on above: Order Comment: Speci men Type: BLOOD SPECIMENOrdering Facility: [facility] Address: [address] [place] [address] Performed By: #### 5 8410-2 ####[facility] LABORATORYCLIA [id number] [address] [place] aPTT PPPon 06-13-2024 aPTT Coag (PPP) [Time] 51.3 s High 23.0-32.4 [facility] Comment on above: Order Comment: Speci men Type: BLOOD SPECIMEN [facility] Address: [address] [place] [address] Performed By: #### 2 4321-2, 20326-0, 97917-2 #### [facility] CLIA [id number] [address] OF [facility] aPTT Coag (PPP) [Time] 89.0 s High 23.0-32.4 [facility] Comment on above: Order Comment: Speci men Type: BLOOD SPECIMEN [facility] Address: [address] [place], [place] [address] Performed By: #### 2 4321-2, 65214-4, #### [facility] CLIA [id number] [address] [place] ALLIED HEALTHon 06-12-2024 ALLIED HEALTH HNO ID: [id number] Author: HELLEN SEVILLA RT(R) Service: Radiology Author [...] PATIENT PRESENTS WITH AN IMPLANTABLE OR ATTACHED OFFAL WORKER: No RADIOLOGY DEPARTMENT: CT; Exam(s) Completed: Brain PERIPHERAL IV DATA: Not applicable SIGNED BY: RT Reji(R) June 12, 2024 9:13 AM Normal [facility] CBC W Auto Differential pane l (Bld)on 06-12-2024 Basophils (Bld) [#/Vol] 0.03 10*3/uL Normal <0.11 [facility] Comment on above: Order Comment: Speci isabella Type: BLOOD SPECIMEN [facility] Address: [address] [place] [address] Performed By: #### 2 4321-2, 94574-3, #### [facility] CLIA [id number] [address] Basophils/100 WBC (Bld) 0.6 % Normal [facility] Comment on above: Order Comment: Speci men Type: BLOOD SPECIMEN [facility] Address: [address] [place] [address] Performed By: #### 2 4321-2, 34422-7, #### [facility] CLIA [id number] [address] Differential cell count method Nom (Bld) Auto Normal [facility] Comment on above: Order Comment: Speci men Type: BLOOD SPECIMEN [facility] Address: [address] [place] [address] Performed By: #### 2 4321-2, 34168-7, #### [facility] CLIA [id number] [address] [place] Eosinophils (Bld) [#/Vol] 0.05 10*3/uL Normal <0.46 [facility] Comment on above: Order Comment: Speci men Type: BLOOD SPECIMEN [facility] Address: [address] [place] [address] Performed By: #### 2 1-2, 94014-0, #### [facility] CLIA [id number] [address] [place] Eosinophils/100 WBC (Bld) 1.0 % Normal [facility] Comment on above: Order Comment: Speci men Type: BLOOD SPECIMEN [facility] Address: [address] [place] [address] Performed By: #### 2 4321-2, 17421-4, #### [facility] CLIA [id number] [address] [place] Erythrocyte distribution width (RBC) [Ratio] 15.6 % High 11.5-15.0 [facility] Comment on above: Order Comment: Speci men Type: BLOOD SPECIMEN [facility] Address: [address] [place] [address] Performed By: #### 2 4321-2, 37000-7, #### [facility] CLIA [id number] [address] [place] [address] [place] Hematocrit (Bld) [Volume fraction] 34.6 % Low 36.0-46.0 [facility] Comment on above: Order Comment: Speci men Type: BLOOD SPECIMEN [facility] Address: [address] [place] [address] Performed By: #### 2 4321-2, 10751-4, #### [facility] CLIA [id number] [address] [place] [address] [place] Hemoglobin (Bld) [Mass/Vol] 10.6 g/dL Low 11.5-15.5 [facility] Comment on above: Order Comment: Speci men Type: BLOOD SPECIMEN [facility] Address: [address] [place] [address] Performed By: #### 2 4321-2, 91113-5, #### [facility] CLIA [id number] [address] [place] Immature granulocytes (Bld) [#/Vol] 10*3/uL Normal <0.10 [facility] Comment on above: Order Comment: Speci men Type: BLOOD SPECIMEN [facility] Address: [address] [place] [address] Performed By: #### 2 4321-2, 80475-9, #### [facility] CLIA [id number] [address] [place] Immature granulocytes/100 WBC (Bld) 0.2 % Normal [facility] Comment on above: Order Comment: Speci men Type: BLOOD SPECIMEN [facility] Address: [address] [place] [address] Performed By: #### 2 4321-2, 29878-2, #### [facility] CLIA [id number] [address] [place] [address] [place] Lymphocytes (Bld) [#/Vol] 1.65 10*3/uL Normal 1.00-4.00 [facility] Comment on above: Order Comment: Speci men Type: BLOOD SPECIMEN [facility] Address: [address] [place] [address] Performed By: #### 2 4321-2, 05350-1, #### [facility] CLIA [id number] [address] Lymphocytes/100 WBC (Bld) 31.9 % Normal [facility] Comment on above: Order Comment: Speci men Type: BLOOD SPECIMEN [facility] Address: [address] [place] [address] Performed By: #### 2 1-2, 65497-6, #### [facility] CLIA [id number] [address] [place] MCH (RBC) [Entitic mass] 26.2 pg Normal 26.0-34.0 [facility] Comment on above: Order Comment: Speci men Type: BLOOD SPECIMEN [facility] Address: [address] [place] [address] Performed By: #### 2 4321-2, 53438-3, #### [facility] CLIA [id number] [address] OF [facility] MCHC (RBC) [Mass/Vol] 30.6 g/dL Normal 30.5-36.0 [facility] Comment on above: Order Comment: Speci men Type: BLOOD SPECIMEN [facility] Address: [address] [place] [address] Performed By: #### 2 4321-2, 38316-8, #### [facility] CLIA [id number] [address] MCV (RBC) [Entitic vol] 85.6 fL Normal 80.0-100.0 [facility] Comment on above: Order Comment: Speci men Type: BLOOD SPECIMEN [facility] Address: [address] [place] [address] Performed By: #### 2 4321-2, 30832-6, #### [facility] CLIA [id number] [address] [place] Monocytes (Bld) [#/Vol] 0.46 10*3/uL Normal <0.87 [facility] Comment on above: Order Comment: Speci men Type: BLOOD SPECIMEN [facility] Address: [address] [place] [address] Performed By: #### 2 4321-2, 56823-6, #### [facility] CLIA [id number] [address] [facility] Monocytes/100 WBC (Bld) 8.9 % Normal [facility] Comment on above: Order Comment: Speci men Type: BLOOD SPECIMEN [facility] Address: [address] [place] [address] Performed By: #### 2 1-2, 33048-8, #### [facility] CLIA [id number] [address] STATES OF [facility] Neutrophils (Bld) [#/Vol] 2.97 10*3/uL Normal 1.45-7.50 [facility] Comment on above: Order Comment: Speci men Type: BLOOD SPECIMEN [facility] Address: [address] [place] [address] Performed By: #### 2 4321-2, 40825-7, #### [facility] CLIA [id number] [address] STATES OF [facility] Neutrophils/100 WBC (Bld) 57.4 % Normal [facility] Comment on above: Order Comment: Speci men Type: BLOOD SPECIMEN [facility] Address: [address] [place] [address] Performed By: #### 2 4321-2, 54592-5, #### [facility] CLIA [id number] [address] [place] Nucleated RBC (Bld) [#/Vol] 10*3/uL Normal <0.01 [facility] Comment on above: Order Comment: Speci men Type: BLOOD SPECIMEN [facility] Address: [address] [place] [address] Performed By: #### 2 4321-2, 68118-1, #### [facility] CLIA [id number] [address] [place] Nucleated RBC/100 WBC (Bld) [Ratio] 0.0 /100 WBC Normal [facility] Comment on above: Order Comment: Speci men Type: BLOOD SPECIMEN [facility] Address: [address] [place] [address] Performed By: #### 2 4321-2, 98219-1, #### [facility] CLIA [id number] [address] Platelet mean volume (Bld) [Entitic vol] 9.6 fL Normal 9.0-12.7 [facility] Comment on above: Order Comment: Speci men Type: BLOOD SPECIMEN [facility] Address: [address] [place] [address] Performed By: #### 2 4321-2, 34563-7, #### [facility] CLIA [id number] [address] [place] Platelets (Bld) [#/Vol] 314 10*3/uL Normal 150-400 [facility] Comment on above: Order Comment: Speci men Type: BLOOD SPECIMEN [facility] Address: [address] [place] [address] Performed By: #### 2 4321-2, 25868-0, #### [facility] CLIA [id number] [address] [place] RBC (Bld) [#/Vol] 4.04 10*6/uL Normal 3.90-5.20 [facility] Comment on above: Order Comment: Speci men Type: BLOOD SPECIMEN [facility] Address: [address] [place], [place] [address] Performed By: #### 2 4321-2, 93829-4, #### [facility] CLIA [id number] 1 [place] [address] [place] WBC (Bld) [#/Vol] 5.17 10*3/uL Normal 3.70-11.00 [facility] Comment on above: Order Comment: Speci men Type: BLOOD SPECIMEN [facility] Address: [address] [place], [place] [address] Performed By: #### 2 4321-2, 03803-4, #### [facility] CLIA [id number] [address] [place] CONSULTon 06-12-2024 CONSULT HNO ID: [id number] Author: MINA TALBERT MD Service: Cardiovascular Disease Author Type: Physician Type: Consults Filed: 06/12/2024 10:40 Note Text: CARDIOLOGY CONSULTATION- [facility] Patient Name: Mel Castillo : 1940 PRIMARY CARE PHYSICIAN: Jared Evans MD [address] [place] [address] REFERRING PHYSICIAN No referring provider defined for [...] presumptive 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[facility] with history of prior stroke PAD [...] the hospital a few months ago at [facility] she was taking her Eliquis and [...] Orthostatic Pulse (more content not included)... Normal [facility] CONSULT PROGon 06-12-2024 CONSULT PROG HNO ID: [id number] Author: NICOLAS TESFAYE APRN.SHAMIKA Service: Neurology General [...] Score: 1 (06/12/24 0945 : Nicolas Tesfaye, SUBWAY CAR REPAIRER.SOAP TENDER) 1 MENTAL STATUS: Alert, oriented to person, [...] and Prevention (personally reviewed by Nicolas Tesfaye APRN.SOAP TENDER): Daily Rounding Date: 06/12/24 Daily Rounding Time: [...] Mel Hernandez (more content not included)... Normal [facility] CT BRAIN WO IVCONon 06-12-20 CT BRAIN WO IVCON * * *Final Report* * * DATE OF EXAM: Jun 12 2024 9:25AM [facility] 0504 - CT BRAIN WO [...] intracranial hemorrhage. Chronic changes, as detailed above. Research Environmental Scientist: DEVEN Transcribe Date/Time: Jun 12 2024 9:42A Dictated by : LYDIA EVANS MD This examination was interpreted and the report reviewed and electronically signed by: LYDIA EVANS MD on Jun 12 2024 9:47AM EST [id number] Normal [facility] Comprehensive metabolic 2000 panelon 06-12-2024 Albumin [Mass/Vol] 3.6 g/dL Low 3.9-4.9 [facility] Comment on above: Order Comment: Speci men Type: BLOOD SPECIMEN [facility] Address: [address] [place] [address] Performed By: #### 2 4321-2, 84735-8, #### [facility] CLIA [id number] [address] STATES OF [facility] ALP [Catalytic activity/Vol] 88 U/L Normal 34-123 [facility] Comment on above: Order Comment: Speci men Type: BLOOD SPECIMEN [facility] Address: [address] [place] [address] Performed By: #### 2 4321-2, 66534-5, #### [facility] CLIA [id number] [address] [place] ALT With P-5'-P [Catalytic activity/Vol] 6 U/L Low 7-38 [facility] Comment on above: Order Comment: Speci men Type: BLOOD SPECIMEN [facility] Address: [address] [place] [address] Performed By: #### 2 4321-2, 81970-5, #### [facility] CLIA [id number] [address] [place] Anion gap [Moles/Vol] 13 mmol/L Normal 8-15 [facility] Comment on above: Order Comment: Speci men Type: BLOOD SPECIMEN [facility] Address: [address] [place] [address] Performed By: #### 2 4321-2, 45222-0, #### [facility] CLIA [id number] 1 [place] [address] [place] AST With P-5'-P [Catalytic activity/Vol] 9 U/L Low 13-35 [facility] Comment on above: Order Comment: Speci men Type: BLOOD SPECIMEN [facility] Address: [address] [place] [address] Performed By: #### 2 4321-2, 55713-0, #### [facility] CLIA [id number] 1 [place] [address] [place] Bilirubin [Mass/Vol] 0.6 mg/dL Normal 0.2-1.3 [facility] Comment on above: Order Comment: Speci men Type: BLOOD SPECIMEN [facility] Address: [address] [place] [address] Performed By: #### 2 4321-2, 77267-6, #### [facility] CLIA [id number] 1 [place] [address] [place] Calcium [Mass/Vol] 9.2 mg/dL Normal 8.5-10.2 [facility] Comment on above: Order Comment: Speci men Type: BLOOD SPECIMEN [facility] Address: [address] [place] [address] Performed By: #### 2 4321-2, 26418-2, #### [facility] CLIA [id number] 1 [place] [address] [place] Chloride [Moles/Vol] 101 mmol/L Normal 98-107 [facility] Comment on above: Order Comment: Speci men Type: BLOOD SPECIMEN [facility] Address: [address] [place] [address] Performed By: #### 2 4321-2, 17970-5, #### [facility] CLIA [id number] 1 [place] [address] [place] CO2 [Moles/Vol] 23 mmol/L Normal 22-30 [facility] Comment on above: Order Comment: Speci men Type: BLOOD SPECIMEN [facility] Address: [address] [place] [address] Performed By: #### 2 4321-2, 73241-5, #### [facility] CLIA [id number] [address] [place] Creatinine [Mass/Vol] 1.02 mg/dL High 0.58-0.96 [facility] Comment on above: Order Comment: Speci men Type: BLOOD SPECIMEN [facility] Address: [address] [place] [address] Performed By: #### 2 4321-2, 34270-1, #### [facility] CLIA [id number] [address] Creatinine and Glomerular filtration rate.predicted panel (S/P/Bld) 54 mL/min/1.73m??? Low >=60 [facility] Comment on above: Order Comment: Specrobson men Type: BLOOD SPECIMEN [facility] Address: [address] [place] [address] Result Comment: Isa mated Glomerular Filtration Rate [...] actual GFR. Performed By: #### 2 4321-2, 08583-0, #### [facility] CLIA [id number] 1 [place] [address] [place] Glucose [Mass/Vol] 109 mg/dL High 74-99 [facility] Comment on above: Order Comment: Speci men Type: BLOOD SPECIMEN [facility]ing [facility] Address: [address] [place] [address] Result Comment: The [employer] Diabetes Association (ADA) provides guidance for cutoff [...] Standards of Medical Care in Diabetes 2016, [employer] Diabetes Association. Diabetes Care. 2016.39(Suppl 1). Performed By: #### 2 4321-2, 19331-3, #### [facility] CLIA [id number] 1 [place] [address] [place] Potassium [Moles/Vol] 4.0 mmol/L Normal 3.7-5.1 [facility] Comment on above: Order Comment: Rhina mason Type: BLOOD SPECIMEN [facility] Address: [address] [place] [address] Performed By: #### 2 4321-2, 83816-3, #### [facility] CLIA [id number] 1 [place] [address] [place] Protein [Mass/Vol] 6.4 g/dL Normal 6.3-8.0 [facility] Comment on above: Order Comment: Rhina mason Type: BLOOD SPECIMEN [facility] Address: [address] [place] [address] Performed By: #### 2 4321-2, 74217-2, #### [facility] CLIA [id number] 1 [place] [address] [place] Sodium [Moles/Vol] 137 mmol/L Normal 136-144 [facility] Comment on above: Order Comment: Samiri isabella Type: BLOOD SPECIMEN [facility] Facility[facility] Address: [address] [place] [address] Performed By: #### 2 4321-2, 77226-2, #### [facility] CLIA [id number] [address] [place] [address] Urea nitrogen [Mass/Vol] 12 mg/dL Normal 7-21 [facility] Comment on above: Order Comment: Rhina mason Type: BLOOD SPECIMEN [facility] Address: [address] [place] [address] Performed By: #### 2 4321-2, 14572-1, 14751-1 #### [facility] CLIA [id number] [address] Magnesium SerPl-mCncon 06-12 Magnesium [Mass/Vol] 2.3 mg/dL Normal 1.7-2.3 [facility] Comment on above: Order Comment: Rhina mason Type: BLOOD SPECIMEN [facility] Address: [address] [place] [address] Performed By: #### 2 4321-2, 75253-7, 69904-0 #### [facility] CLIA [id number] [address] OF [facility] NURSING PROGon 06-12-2024 NURSING PROG HNO ID: [id number] Author: ROBINSON VELÁSQUEZ, RADHA Service: ? Author [...] Next PTT draw due at 1900 Normal [facility] PT EDon 06-12-2024 PT ED HNO ID: [id number] Author: DOT PETERSON tali Service: Pharmacy Author Type: ? Type: Patient Education Filed: 06/12/2024 16:17 Note Text: Attestation signed by Dot Peterson [facility] at 06/12/2024 4:17 PM I have [...] questions. Patient aware of copay. Nayana Rowan, Core Inserter [facility] THERAPY NTon 06-12-2024 THERAPY NT HNO ID: [id number] Author: LATOYA LONG PT Service: Physical Therapy Author Type: Physical Therapist Type: Therapy (PT/OT/Speech/Resp) Filed: 06/12/2024 15:33 Note Text: Physical Therapy Treatment Summary SERVICE DATE: 06/12/2024 SERVICE TIME: 1445 to 1509 ROOM: [place] [id number] PT 6 Clicks Score: 13 DISCHARGE RECOMMENDATIONS [...] Lack of coordination-other TREATMENT INTERVENTIONS Therapeutic Activity (91069), Neuromuscular Reeducation (07821) Timed Code Treatment (minutes): 23 Skilled Treatment Time (minutes): 23 Therapeutic Activity (54663) Treatment Minutes: 10 $ Therapeutic Activity (98507) Billed Units: 1 unit Training and assist with bed mobility, transfers and taking steps in place and side steps along the EOB with the walker. Neuromuscular Reeducation (61109) Treatment Minutes: 13 $ Neuromuscular Reeducation (03106) Billed Units: 1 unit Instructed pt in [...] position andrea (more content not included)... Normal [facility] THERAPY NT HNO ID: [id number] Author: SAMI WEINBERG OTR/L Service: Occupational Therapy Author Type: Occupational Therapist Type: Therapy (PT/OT/Speech/Resp) Filed: 06/12/2024 08:50 Note Text: Occupational Therapy Evaluation Summary SERVICE DATE: 06/12/2024 SERVICE TIME: 810 to 833 ROOM: [place] [address] OT 6 Clicks Score: 15 DISCHARGE RECOMMENDATIONS [...] and signs-other TREATMENT INTERVENTIONS Evaluation, Therapeutic Activity (31807) Timed Code Treatment (minutes): 8 Skilled Treatment Time (minutes): 23 $ Evaluation - Moderate (30800) Billed Units: 1 unit Therapeutic Activity (95560) Treatment Minutes: 8 $ Therapeutic Activity (92636) Billed Units: 1 unit TRAINING AND EDUCATION PROVIDED Assistive Device Use, Bed Mobility, Benefits of In-Hospital Mobility, Cognitive Stimulation Activities, Discharge Planning, Disease Specific Education, Role of Occupational Therapy, Safety/Judgment, Sitting Balance to Improve [place] with ADLs/Self-Care THERAPEUTIC SKILLS USED Activity Dosing, [...] Stand By (more content not included)... Normal [facility] aPTT PPPon 06-12-2024 aPTT Coag (PPP) [Time] 56.1 s High 23.0-32.4 [facility] Comment on above: Order Comment: Speci men Type: BLOOD SPECIMEN Ordering Facility: [facility] Address: [address] [place] [address] [place] [address] Performed By: #### 2 4321-2, 07504-0, 27689-4 #### [facility] CLIA [id number] [address] aPTT Coag (PPP) [Time] 79.0 s High 23.0-32.4 [facility] Comment on above: Order Comment: Speci men Type: BLOOD SPECIMEN Ordering Facility: [facility] Address: [address] [place], [place] [id number] Performed By: #### 1 4979-9 #### [facility] CLIA [id number] [address] aPTT Coag (PPP) [Time] 123.9 s High 23.0-32.4 [facility] Comment on above: Order Comment: Speci men Type: BLOOD SPECIMEN Ordering Facility: [facility] Address: [address] [place], [place] [address] Performed By: #### 2 4321-2, 99255-6, #### [facility] CLIA [id number] [address] aPTT Coag (PPP) [Time] 117.3 s High 23.0-32.4 [facility] Comment on above: Order Comment: Speci men Type: BLOOD SPECIMEN Ordering Facility: [facility] Address: [address] [place], [place] [address] Performed By: #### 2 4321-2, 61982-3, 54420-4 #### [facility] CLIA [id number] [address] [place] 36on 06-11-[address] [place] [address] [facility] HNO ID: [id number] Author: FABIO KERR Tech Service: ? Author Type: Ore Buyer Type: Allied Health Filed: 06/11/2024 14:16 Note [...] PATIENT PRESENTS WITH AN IMPLANTABLE OR ATTACHED OFFAL WORKER: No RADIOLOGY DEPARTMENT: MR; Exam(s) Completed: Head: Routine Brain [place] MRA MRA Carotid PERIPHERAL IV DATA: Not applicable SIGNED BY: Anne Marie Carrillo June 11, 2024 2:15 PM Normal [facility] CBC W Auto Differential pane l (Bld)on 06-11-2024 Basophils (Bld) [#/Vol] 0.03 10*3/uL Normal <0.11 [facility] Comment on above: Order Comment: Rhina mason Type: BLOOD SPECIMEN Ordering Facility: [facility] Address: [address] [place] [address] Performed By: #### 2 4321-2, 36980-9, #### [facility] CLIA [id number] [address] [place] Basophils/100 WBC (Bld) 0.4 % Normal [facility] Comment on above: Order Comment: Rhina mason Type: BLOOD SPECIMEN Ordering Facility: [facility] Address: [address] [place] [address] Performed By: #### 2 4321-2, 32335-6, #### [facility] CLIA [id number] [address] [place] Differential cell count method Nom (Bld) Auto Normal [facility] Comment on above: Order Comment: Samiri isabella Type: BLOOD SPECIMEN Ordering Facility: [facility] Address: [address] [place] [address] Performed By: #### 2 4321-2, 84159-1, #### [facility] CLIA [id number] [address] [place] Eosinophils (Bld) [#/Vol] 10*3/uL Normal <0.46 [facility] Comment on above: Order Comment: Speci men Type: BLOOD SPECIMEN Ordering Facility: [facility] Address: [address] [place] [address] Performed By: #### 2 4321-2, 11339-7, #### [facility] CLIA [id number] [address] [place] Eosinophils/100 WBC (Bld) 0.3 % Normal [facility] Comment on above: Order Comment: Speci men Type: BLOOD SPECIMEN Ordering Facility: [facility] Address: [address] [place] [address] Performed By: #### 2 4321-2, 02685-4, #### [facility] CLIA [id number] [address] [place] Erythrocyte distribution width (RBC) [Ratio] 15.6 % High 11.5-15.0 [facility] Comment on above: Order Comment: Speci men Type: BLOOD SPECIMEN Ordering Facility: [facility] Address: [address] [place] [address] Performed By: #### 2 4321-2, 28632-8, #### [facility] CLIA [id number] [address] [place] Hematocrit (Bld) [Volume fraction] 37.6 % Normal 36.0-46.0 [facility] Comment on above: Order Comment: Speci men Type: BLOOD SPECIMEN Ordering Facility: [facility] Address: [address] [place] [address] Performed By: #### 2 4321-2, 89993-8, #### [facility] CLIA [id number] [address] [place] Hemoglobin (Bld) [Mass/Vol] 11.5 g/dL Normal 11.5-15.5 [facility] Comment on above: Order Comment: Speci men Type: BLOOD SPECIMEN Ordering Facility: [facility] Address: [address] [place] [address] Performed By: #### 2 4321-2, 75461-8, #### [facility] CLIA [id number] 1 [place] [address] [place] Immature granulocytes (Bld) [#/Vol] 0.03 10*3/uL Normal <0.10 [facility] Comment on above: Order Comment: Speci men Type: BLOOD SPECIMEN Ordering Facility: [facility] Address: [address] [place] [address] Performed By: #### 2 4321-2, 92073-6, #### [facility] CLIA [id number] [address] [place] Immature granulocytes/100 WBC (Bld) 0.4 % Normal [facility] Comment on above: Order Comment: Speci men Type: BLOOD SPECIMEN Ordering Facility: [facility] Address: [address] [place] [address] Performed By: #### 2 1-2, 78105-2, #### [facility] CLIA [id number] 1 [place] [address] [place] Lymphocytes (Bld) [#/Vol] 1.26 10*3/uL Normal 1.00-4.00 [facility] Comment on above: Order Comment: Speci men Type: BLOOD SPECIMEN Ordering Facility: [facility] Address: [address] [place] [address] Performed By: #### 2 4321-2, 67375-6, #### [facility] CLIA [id number] [address] [place] Lymphocytes/100 WBC (Bld) 16.9 % Normal [facility] Comment on above: Order Comment: Speci men Type: BLOOD SPECIMEN Ordering Facility: [facility] Address: [address] [place] [address] Performed By: #### 2 4321-2, , #### [facility] CLIA [id number] [address] MCH (RBC) [Entitic mass] 26.6 pg Normal 26.0-34.0 [facility] Comment on above: Order Comment: Speci men Type: BLOOD SPECIMEN Ordering Facility: [facility] Address: [address] [place] [address] Performed By: #### 2 4320-2, 96680-7, #### [facility] CLIA [id number] [address] MCHC (RBC) [Mass/Vol] 30.6 g/dL Normal 30.5-36.0 [facility] Comment on above: Order Comment: Speci men Type: BLOOD SPECIMEN Ordering Facility: [facility] Address: [address] [place] [address] Performed By: #### 2 4320-2, , #### [facility] CLIA [id number] [address] MCV (RBC) [Entitic vol] 87.0 fL Normal 80.0-100.0 [facility] Comment on above: Order Comment: Speci men Type: BLOOD SPECIMEN Ordering Facility: [facility] Address: [address] [place] [address] Performed By: #### 2 4320-2, 32734-7, #### [facility] CLIA [id number] [address] Monocytes (Bld) [#/Vol] 0.68 10*3/uL Normal <0.87 [facility] Comment on above: Order Comment: Speci men Type: BLOOD SPECIMEN Ordering Facility: [facility] Address: [address] [place] [address] Performed By: #### 2 432-2, 57453-1, #### [facility] CLIA [id number] [address] [place] [address] [place] Monocytes/100 WBC (Bld) 9.1 % Normal [facility] Comment on above: Order Comment: Speci men Type: BLOOD SPECIMEN Ordering Facility: [facility] Address: [address] [place] [address] Performed By: #### 2 4321-2, 12870-3, #### [facility] CLIA [id number] 1 [place] [address] [place] Neutrophils (Bld) [#/Vol] 5.43 10*3/uL Normal 1.45-7.50 [facility] Comment on above: Order Comment: Speci men Type: BLOOD SPECIMEN Ordering Facility: [facility] Address: [address] [place] [address] Performed By: #### 2 4321-2, 45008-7, #### [facility] CLIA [id number] [address] [place] Neutrophils/100 WBC (Bld) 72.9 % Normal [facility] Comment on above: Order Comment: Speci men Type: BLOOD SPECIMEN Ordering Facility: [facility] Address: [address] [place] [address] Performed By: #### 2 4321-2, 99471-0, #### [facility] CLIA [id number] 1 [place] [address] [place] Nucleated RBC (Bld) [#/Vol] 10*3/uL Normal <0.01 [facility] Comment on above: Order Comment: Speci men Type: BLOOD SPECIMEN Ordering Facility: [facility] Address: [address] [place] [address] Performed By: #### 2 4321-2, 36078-1, #### [facility] CLIA [id number] [address] [place] Nucleated RBC/100 WBC (Bld) [Ratio] 0.0 /100 WBC Normal [facility] Comment on above: Order Comment: Speci men Type: BLOOD SPECIMEN Ordering Facility: [facility] Address: [address] [place] [address] Performed By: #### 2 4321-2, 36650-2, #### [facility] CLIA [id number] [address] [place] Platelet mean volume (Bld) [Entitic vol] 9.5 fL Normal 9.0-12.7 [facility] Comment on above: Order Comment: Speci men Type: BLOOD SPECIMEN Ordering Facility: [facility] Address: [address] [place] [address] Performed By: #### 2 4321-2, 86316-1, #### [facility] CLIA [id number] [address] [place] Platelets (Bld) [#/Vol] 329 10*3/uL Normal 150-400 [facility] Comment on above: Order Comment: Speci men Type: BLOOD SPECIMEN Ordering Facility: [facility] Address: [address] [place] [address] Performed By: #### 2 4321-2, 75576-7, #### [facility] CLIA [id number] [address] [place] RBC (Bld) [#/Vol] 4.32 10*6/uL Normal 3.90-5.20 [facility] Comment on above: Order Comment: Speci men Type: BLOOD SPECIMEN Ordering Facility: [facility] Address: [address] [place] [address] Performed By: #### 2 4321-2, 14248-8, #### [facility] CLIA [id number] [address] [place] [address] [place] WBC (Bld) [#/Vol] 7.45 10*3/uL Normal 3.70-11.00 [facility] Comment on above: Order Comment: Speci men Type: BLOOD SPECIMEN Ordering Facility: [facility] Address: [address] [place] [address] Performed By: #### 2 4321-2, 19397-0, 19229-6 #### [facility] [place] [id number] [address] OF [facility] CONSULTon 06-11-2024 CONSULT HNO ID: [id number] Author: JENNY WALLACE MD Service: Neurology General [...] cannot ambulate. Pre-admission Pre-morbid mRS: Premorbid Modified Melbeta Score: 0 - No symptoms at all [...] Vital Signs: (more content not included)... Normal [facility] CONSULT HNO ID: [id number] Author: TOÑO MANZO MD Service: Urology Author [...] discussed with the Patient or Patient's Authorized Project Manager Process Development. As applicable, any other physician, advance practice provider, medical student, or other health professional student that will be observing or involved in the sensitive examination for educational or training purposes was discussed with the Patient or Authorized Project Manager Process Development. The Patient or Authorized Project Manager Process Development has agreed to proceed with the sensitive [...] lesion. Consider follow-up renal CT/MR for characterization. Research Environmental Scientist: DEVEN Transcribe D (more content not included)... Normal [facility] CONSULT PROGon 06-11-2024 CONSULT PROG HNO ID: [id number] Author: CARL PERSAUD RPh Service: Pharmacy Author [...] [facility] CONSULT PROG HNO ID: [id number] Author: CARL PERSAUD RPh Service: Pharmacy Author [...] 06/10/24. Patient was being managed by [facility] but was recently released due to [...] education: No Signature: Carl Persaud RPh Normal [facility] CT ABD/PEL W IVCONon 024 CT ABD/PEL W IVCON * * *Final Report* * * DATE OF EXAM: Jun 11 2024 3:07AM [facility] 0530 - CT ABD/PEL W [...] to bilateral greater trochanters, similar to prior. Sound Technician Supervisor (topogram) images: No additional findings. IMPRESSION: 1. Mild bilateral hydroureteronephrosis to the pelvic brim without evidence of ureterolithiasis. 2. Indeterminate left renal lesion. Consider follow-up renal CT/MR for characterization. Research Environmental Scientist: [facility] Transcribe Date/Time: Jun 11 2024 3:09A Dictated by : RAF AYALA MD This examination was interpreted and the report reviewed and electronically signed by: RAF AYALA MD on Jun 11 2024 3:40AM EST [id number] Normal [facility] CT BRAIN WO IVCONon 06-11-20 CT BRAIN WO IVCON * * *Final Report* * * DATE OF EXAM: Jun 11 2024 3:05AM [facility] 0504 - CT BRAIN WO [...] changes and small remote right occipital infarct. Research Environmental Scientist: DEVEN Transcribe Date/Time: Jun 11 2024 3:05A Dictated by : RIN LANE MD This examination was interpreted and the report reviewed and electronically signed by: RIN LANE MD on Jun 11 2024 3:16AM EST [id number] Normal [facility] ECHO WITH AGITATED SALINE CO NTRASTon 06-11-2024 ECHO WITH AGITATED SALINE CONTRAST Echocardiography Report: Transthoracic Echo [facility] Date of service: 06/11/2024 11:20:46 AM [...] * * * Final * * * [employer] The Simple, Fast and Elegant Tablet [employer] App Medical Image : [id number] Normal [facility] ED NOTEon 06-11-2024 ED NOTE HNO ID: [id number] Author: GISSELL CARRINGTON RN Service: Emergency Medicine Author Type: Registered Nurse Type: ED Notes Filed: 06/11/2024 05:58 Note Text: Gave report to assigned RN on 2099. Assigned RN is ready to receive patient at this time. Normal [facility] ED NOTE HNO ID: [id number] Author: GISSELL CARRINGTON RN Service: Emergency Medicine Author Type: Registered Nurse Type: ED Notes Filed: 06/11/2024 00:40 Note Text: Dr. Mendoza at bedside placing a US IV at this time. Normal [facility] HIGH SENSITIVITY TROPONIN T (SECOND)on 06-11-2024 Troponin T.cardiac High sensitivity method [Mass/Vol] 14 ng/L High <12 [facility] Comment on above: Order Comment: Speci men Type: BLOOD SPECIMEN Ordering Facility: [facility] Address: [address] [id number] Performed By: #### 2 4321-2, 88524-2, 53549-4 #### [facility] CLIA [id number] [address] HIGH SENSITIVITY TROPONIN T (THIRD) 3 HRS AFTER INITIALon 06-11-2024 Troponin T.cardiac High sensitivity method [Mass/Vol] 14 ng/L High <12 [facility] Comment on above: Order Comment: Speci men Type: BLOOD SPECIMEN Ordering Facility: [facility] Address: [address] [place] [id number] Performed By: #### 2 4321-2, 72925-0, 19456-1 #### [facility] CLIA [id number] [address] HISTORY PHYSICALon HISTORY PHYSICAL HNO ID: [id number] Author: DON EDWARDS DO Service: Hospital Medicine Author Type: Physician Type: H&P Filed: 06/11/2024 14:14 Note Text: DEPARTMENT OF HOSPITAL MEDICINE HISTORY AND PHYSICAL EXAM SERVICE DATE: 06/11/2024 SERVICE TIME: 10:25 AM Primary Care Physician: Jared Evans MD, MD NIGHT AND WEEKEND COVERAGE: [facility] COVERAGE: From 7am - 7pm, please call [phone] After 7pm, please call cross cover pager #[phone] Subjective CHIEF COMPLAINT: dizziness with vomiting, slurred [...] Hypothyroidism PAST SURGICAL HISTORY Procedure Laterality Date DANWA, DIAG AND/OR THERAPEUTIC NASAL ENDOS,DIAG,UNI/ BILATERAL TOTAL [...] Drains, and Airways Line Duration Peripheral 06/11/24 [facility] Left Antecubital 20 Gauge <1 day Drain Duration External Collection Device 06/11/24 0250 [facility] <1 day Reviewed lines and needs to be continued: REASONS: Telemetry DATA: Diagnostic tests reviewed for today's visit: Most recent lab (more content not included)... Normal [facility] MRA BRAIN WO IVCONon 024 MRA BRAIN WO IVCON * * *Final Report* * * DATE OF EXAM: Jun 11 2024 3:52PM [facility] 0272 - MRA BRAIN WO IVCON / PROCEDURE REASON: Neuro deficit, acute, stroke suspected * * * * Physician Interpretation * * * * EXAMINATION: MRI BRAIN WO IVCON, MRA BRAIN WO IVCON, MRA CAROTID WO IVCON CLINICAL HISTORY: Neuro deficit, acute, stroke suspected TECHNIQUE: Routine noncontrast MRI brain protocol including diffusion images. Intracranial and carotid 3D tceh-if-okzcdr MRA. 3D maximum intensity projection images were [...] Patency: Bilateral Dominance: Left INTRACRANIAL MRA: [place] is patent without significant stenosis. 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 IMPRESSION: Motion degraded study. 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 No hemorrhagic transformation or significant mass effect. Unremarkable carotid MRA. 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 Research Environmental Scientist[facility] Transcribe Date/Time: Jun 11 2024 3:54P Dictated by : ESTHER MCKEON MD This examination was interpreted and the report reviewed and electronically signed by: ESTHER MCKEON MD on Jun 11 2024 4:13PM EST [id number] Normal [facility] MRA CAROTID WO IVCONon 06-11 MRA CAROTID WO IVCON * * *Final Report* * * DATE OF EXAM: Jun 11 2024 3:52PM [facility] 0275 - MRA CAROTID WO IVCON / PROCEDURE REASON: Neuro deficit, acute, stroke suspected * * * * Physician Interpretation * * * * EXAMINATION: MRI BRAIN WO IVCON, MRA BRAIN WO IVCON, MRA CAROTID WO IVCON CLINICAL HISTORY: Neuro deficit, acute, stroke suspected TECHNIQUE: Routine noncontrast MRI brain protocol including diffusion images. Intracranial and carotid 3D fprs-ev-jfbwvw MRA. 3D maximum intensity projection images were [...] Patency: Bilateral Dominance: Left INTRACRANIAL MRA: [place] is patent without significant stenosis. 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 IMPRESSION: Motion degraded study. 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 No hemorrhagic transformation or significant mass effect. Unremarkable carotid MRA. 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 Research Environmental Scientist: [facility] Transcribe Date/Time: Jun 11 2024 3:54P Dictated by : ESTHER MCEKON MD This examination was interpreted and the report reviewed and electronically signed by: ESTHER MCKEON MD on Jun 11 2024 4:13PM EST [id number] Normal [facility] MRI BRAIN WO IVCONon 024 MRI BRAIN WO IVCON * * *Final Report* * * DATE OF EXAM: Jun 11 2024 3:52PM [facility] 0294 - MRI BRAIN WO IVCON / PROCEDURE REASON: stroke * * * * Physician Interpretation * * * * EXAMINATION: MRI BRAIN WO IVCON, MRA BRAIN WO IVCON, MRA CAROTID WO IVCON CLINICAL HISTORY: Neuro deficit, acute, stroke suspected TECHNIQUE: Routine noncontrast MRI brain protocol including diffusion images. Intracranial and carotid 3D lusb-ww-uvjubp MRA. 3D maximum intensity projection images were [...] Patency: Bilateral Dominance: Left INTRACRANIAL MRA: [place] is patent without significant stenosis. 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 IMPRESSION: Motion degraded study. 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 No hemorrhagic transformation or significant mass effect. Unremarkable carotid MRA. 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 Research Environmental Scientist: DEVEN Transcribe Date/Time: Jun 11 2024 3:54P Dictated by : ESTHER MCKEON MD This examination was interpreted and the report reviewed and electronically signed by: ESTHER MCKEON MD on Jun 11 2024 4:13PM EST [id number] Normal [facility] PT panel Coag (PPP)on 2023 INR Coag (PPP) [Relative time] 1.2 {INR} Normal 0.9-1.3 [facility] Comment on above: Order Comment: Speci men Type: BLOOD SPECIMEN Ordering Facility: [facility] Address: [address] [place] [address] Result Comment: Mayra min K Antagonist (VKA) Therapeutic Range: INR 2 to 3 (Target INR of 2.5) Note: For patients treated with VKA drugs, such as warfarin, the [employer] 2012 Guideline recommends [...] Chest 2012, 141:7S-47S Daren HOYT, et al. [facility] 2017, 70: 252-289 Performed By: #### 2 4321-2, 76259-9, #### [facility] CLIA [id number] [address] [place] PT Coag (PPP) [Time] 12.6 s Normal 9.7-13.0 [facility] Comment on above: Order Comment: Speci men Type: BLOOD SPECIMEN Ordering Facility: [facility] Address: [address] [place] [address] Performed By: #### 2 4321-2, 76331-5, #### [facility] CLIA [id number] [address] [place] THERAPY NTon 06-11-2024 THERAPY NT HNO ID: [id number] Author: BASILIA MAGALLANES CCC-LICENSED [employer]UST[employer]S BROKER Service: Speech/Swallow Author Type: Speech Language Pathologist Type: Therapy (PT/OT/Speech/Resp) Filed: 06/11/2024 09:44 Note Text: Speech Therapy Clinical Swallow Evaluation SERVICE DATE: 06/11/2024 SERVICE TIME: 915 to 930 ROOM: [place] [address] IMPRESSION: Functional oropharyngeal phases of swallowing: without [...] Skilled Need Interventions Provided: Clinical Swallow Evaluation (36977) $ Clinical Swallow Evaluation (38573) Billed Units: 1 unit Training and Education [...] for this therapy evaluation/treatment. SIGNATURE: Basilia Magallanes CCC-LICENSED CUSTOMS BROKER PATIENT NAME: Mel Castillo DATE: June 11, 2024 TIME: 9:39 AM Normal [facility] THERAPY NT HNO ID: [id number] Author: MEHREEN MANCERA, PT Service: Physical Therapy Author Type: Physical Therapist Type: Therapy (PT/OT/Speech/Resp) Filed: 06/11/2024 09:27 Note Text: Physical Therapy Evaluation Summary SERVICE DATE: 06/11/2024 SERVICE TIME: 804 to 841 ROOM: [place] [address] PT 6 Clicks Score: 18 DISCHARGE RECOMMENDATIONS [...] and signs-other TREATMENT INTERVENTIONS Evaluation, Canalith Repositioning (08877) Skilled Treatment Time (minutes): 37 $ Evaluation-Moderate (48218) Billed Units: 1 unit $ Canalith Repositioning (61484) Billed Units: 1 unit Repositioning maneuver for [...] postion. L torsional upbeating nystagmus (very brisk) Barstow-Hallpike, Right: Neg Horizontal Canals, Left: Pt with signs of L posterior canal BPPV in this postion Horizontal Canals, Right: neg GOALS Transfer Sit to/from Stand with: Supervision Ambulate with: Supervision Distance: 100' Device: Wheeled Walker Goal: Pt will not have c/o vertigo or signs of nystagmus with position testing Rehab Potential: Good PLAN PT Frequency: 3 Times (more content not included)... Normal [facility] Urinalysis complete panel (U )on 06-11-2024 Bilirubin Ql (U) Negative Normal Negative [facility] Comment on above: Order Comment: Speci men Type: URINE SPECIMENOrdering Facility: [facility] Address: [address] [place] [address] Performed By: #### 2 4356-8 ####[facility]ORYCLIA [id number] [address] [place] Clarity (Unsp spec) Clear Normal Clear [facility] Comment on above: Order Comment: Speci men Type: URINE SPECIMENOrdering Facility: [facility] Address: [address] [place] [address] Performed By: #### 2 4356-8 ####[facility]ORYCLIA [id number] [address] [place] Color (U) Light Yellow Normal yellow [facility] Comment on above: Order Comment: Speci men Type: URINE SPECIMENOrdering Facility: [facility] Address: [address] [place] [address] Performed By: #### 2 4356-8 ####[facility]ATORYCLIA [id number] [address] [place] Glucose Test strip (U) [Mass/Vol] Negative Normal Trace, Negative [facility] Comment on above: Order Comment: Speci men Type: URINE SPECIMENOrdering Facility: [facility] Address: [address] [place] [address] Performed By: #### 2 4356-8 ####[facility]ATORYCLIA [id number] [address] [place] Hemoglobin Ql (U) Trace Normal Negative, Trace [facility] Comment on above: Order Comment: Speci men Type: URINE SPECIMENOrdering Facility: [facility] Address: [address] [place] [address] Performed By: #### 2 4356-8 ####[facility]ATORYCLIA [id number] [address] OF [facility] Ketones Ql (U) Negative Normal Negative, Trace [facility] Comment on above: Order Comment: Speci men Type: URINE SPECIMENOrdering Facility: [facility] Address: [address] [place] [address] Performed By: #### 2 4356-8 ####[facility]ATORYCLIA [id number] [address] OF [facility] Leukocyte esterase Test strip Ql (U) Negative Normal Negative, 25 Jose Luis/uL [facility] Comment on above: Order Comment: Speci men Type: URINE SPECIMENOrdering Facility: [facility] Address: [address] [place] [address] Performed By: #### 2 4356-8 ####[facility]ATORYCLIA [id number] [address] STATES OF [facility] Nitrite Ql (U) Negative Normal Negative [facility] Comment on above: Order Comment: Speci men Type: URINE SPECIMENOrdering Facility: [facility] Address: [address] [place] [address] Performed By: #### 2 4356-8 ####[facility]ATORYCLIA [id number] [address] [place] pH (U) [pH] High 5.0-8.0 [facility] Comment on above: Order Comment: Speci men Type: URINE SPECIMENOrdering Facility: [facility] Address: [address] [place] [address] Performed By: #### 2 4356-8 ####[facility]ATORYCLIA [id number] [address] [place] Protein (U) [Mass/Vol] 1+ Abnormal Trace , Negative [facility] Comment on above: Order Comment: Speci men Type: URINE SPECIMENOrdering Facility: [facility] Address: [address] [place] [address] Performed By: #### 2 4356-8 ####[facility]ORATORYCLIA [id number] [address] STATES [facility] RBC LM.HPF (Urine sed) [#/Area] 6-10 /HPF Abnormal 0-3 /HPF [facility] Comment on above: Order Comment: Speci men Type: URINE SPECIMENOrdering Facility: [facility] Address: [address] [place] [address] Performed By: #### 2 4356-8 ####[facility]ATORYCLIA [id number] [address] STATES [facility] Specific gravity (U) [Rel density] 1.039 High 1.005-1.030 [facility] Comment on above: Order Comment: Speci men Type: URINE SPECIMENOrdering Facility: [facility] Address: [address] [place] [address] Performed By: #### 2 4356-8 ####[facility]ORATORYCLIA [id number] [address] Urobilinogen Ql (U) Normal Normal Normal [facility] Comment on above: Order Comment: Speci men Type: URINE SPECIMENOrdering Facility: [facility] Address: [address] [place] [address] Performed By: #### 2 4356-8 ####[facility]ATORYCLIA [id number] [address] STATES [facility] WBC LM.HPF (Urine sed) [#/Area] 0-5 /HPF Normal 0-5 /HPF [facility] Comment on above: Order Comment: Speci men Type: URINE SPECIMENOrdering Facility: [facility] Address: [address] [place] [address] Performed By: #### 2 4356-8 ####[facility]ATORYCLIA [id number] [address] aPTT PPPon 06-11-2024 aPTT Coag (PPP) [Time] 28.[address] Normal 23.0-32.4 [facility] Comment on above: Order Comment: Speci men Type: BLOOD SPECIMENOrdering Facility: [facility] Address: [address] [place] [address] Performed By: #### 1 4979-9 ####[facility]ATORYCLIA [id number] [address] aPTT Coag (PPP) [Time] 28.[address] s Normal 23.0-32.4 [facility] Comment on above: Order Comment: Speci men Type: BLOOD SPECIMEN [facility]ing [facility] Address: [address] [place] [address] Performed By: #### 2 4321-2, 16054-0, #### [facility] CLIA [id number] [address] CBC W Auto Differential pane l (Bld)on 06-10-2024 Basophils (Bld) [#/Vol] 0.04 10*3/uL Normal <0.11 [facility] Comment on above: Order Comment: Speci men Type: BLOOD SPECIMEN [facility] Address: [address] [place] [address] Performed By: #### 2 4321-2, 59402-8, #### [facility] CLIA [id number] [address] Basophils/100 WBC (Bld) 0.7 % Normal [facility] Comment on above: Order Comment: Speci men Type: BLOOD SPECIMEN [facility] Address: [address] [place] [address] Performed By: #### 2 4321-2, 93485-9, #### [facility] CLIA [id number] [address] Differential cell count method Nom (Bld) Auto Normal [facility] Comment on above: Order Comment: Speci men Type: BLOOD SPECIMEN [facility] Address: [address] [place] [address] Performed By: #### 2 4321-2, 07599-6, #### [facility] CLIA [id number] [address] [place] Eosinophils (Bld) [#/Vol] 10*3/uL Normal <0.46 [facility] Comment on above: Order Comment: Speci men Type: BLOOD SPECIMEN [facility] Address: [address] [place] [address] Performed By: #### 2 1-2, 89348-6, #### [facility] CLIA [id number] [address] [place] Eosinophils/100 WBC (Bld) 0.2 % Normal [facility] Comment on above: Order Comment: Speci men Type: BLOOD SPECIMEN [facility] Address: [address] [place] [address] Performed By: #### 2 4320-2, 87334-4, #### [facility] CLIA [id number] [address] [place] Erythrocyte distribution width (RBC) [Ratio] 15.6 % High 11.5-15.0 [facility] Comment on above: Order Comment: Speci men Type: BLOOD SPECIMEN [facility] Address: [address] [place] [address] Performed By: #### 2 4320-2, 04270-4, #### [facility] CLIA [id number] [address] [place] Hematocrit (Bld) [Volume fraction] 37.5 % Normal 36.0-46.0 [facility] Comment on above: Order Comment: Speci men Type: BLOOD SPECIMEN [facility] Address: [address] [place] [address] Performed By: #### 2 1-2, 26472-9, #### [facility] CLIA [id number] [address] [place] Hemoglobin (Bld) [Mass/Vol] 11.4 g/dL Low 11.5-15.5 [facility] Comment on above: Order Comment: Speci men Type: BLOOD SPECIMEN [facility] Address: [address] [place] [address] Performed By: #### 2 4321-2, 55797-6, #### [facility] CLIA [id number] 1 [place] [address] [place] Immature granulocytes (Bld) [#/Vol] 10*3/uL Normal <0.10 [facility] Comment on above: Order Comment: Speci men Type: BLOOD SPECIMEN [facility]ing [facility] Address: [address] [place] [address] Performed By: #### 2 1-2, 58041-9, #### [facility] CLIA [id number] [address] [place] Immature granulocytes/100 WBC (Bld) 0.4 % Normal [facility] Comment on above: Order Comment: Speci men Type: BLOOD SPECIMEN [facility]ing [facility] Address: [address] [place] [address] Performed By: #### 2 4320-2, 07724-9, #### [facility] CLIA [id number] [address] [place] Lymphocytes (Bld) [#/Vol] 0.61 10*3/uL Low 1.00-4.00 [facility] Comment on above: Order Comment: Speci men Type: BLOOD SPECIMEN [facility] Facility[facility] Address: [address] [place] [address] Performed By: #### 2 1-2, 77546-9, #### [facility] CLIA [id number] [address] [place] Lymphocytes/100 WBC (Bld) 10.8 % Normal [facility] Comment on above: Order Comment: Speci men Type: BLOOD SPECIMEN [facility] Address: [address] [place] [address] Performed By: #### 2 4321-2, 54262-8, #### [facility] CLIA [id number] [address] MCH (RBC) [Entitic mass] 26.2 pg Normal 26.0-34.0 [facility] Comment on above: Order Comment: Speci men Type: BLOOD SPECIMEN [facility] Address: [address] [place] [address] Performed By: #### 2 1-2, 40754-9, #### [facility] CLIA [id number] [address] MCHC (RBC) [Mass/Vol] 30.4 g/dL Low 30.5-36.0 [facility] Comment on above: Order Comment: Speci men Type: BLOOD SPECIMEN [facility] Address: [address] [place] [address] Performed By: #### 2 4320-2, 88056-3, #### [facility] CLIA [id number] [address] MCV (RBC) [Entitic vol] 86.2 fL Normal 80.0-100.0 [facility] Comment on above: Order Comment: Speci men Type: BLOOD SPECIMEN [facility] Address: [address] [place] [address] Performed By: #### 2 4320-2, 34239-0, #### [facility] CLIA [id number] [address] Monocytes (Bld) [#/Vol] 0.21 10*3/uL Normal <0.87 [facility] Comment on above: Order Comment: Speci men Type: BLOOD SPECIMEN [facility] Address: [address] [place] [address] Performed By: #### 2 4321-2, 58346-4, #### [facility] CLIA [id number] 1 [place] [address] [place] Monocytes/100 WBC (Bld) 3.7 % Normal [facility] Comment on above: Order Comment: Speci men Type: BLOOD SPECIMEN [facility] Address: [address] [place] [address] Performed By: #### 2 4321-2, 30965-3, #### [facility] CLIA [id number] 1 [place] [address] [place] Neutrophils (Bld) [#/Vol] 4.78 10*3/uL Normal 1.45-7.50 [facility] Comment on above: Order Comment: Speci men Type: BLOOD SPECIMEN [facility] Address: [address] [place] [address] Performed By: #### 2 4321-2, 07272-7, #### [facility] CLIA [id number] [address] [place] Neutrophils/100 WBC (Bld) 84.2 % Normal [facility] Comment on above: Order Comment: Speci men Type: BLOOD SPECIMEN [facility] Address: [address] [place] [address] Performed By: #### 2 4321-2, 14064-9, #### [facility] CLIA [id number] 1 [place] [address] [place] Nucleated RBC (Bld) [#/Vol] 10*3/uL Normal <0.01 [facility] Comment on above: Order Comment: Speci men Type: BLOOD SPECIMEN [facility] Address: [address] [place] [address] Performed By: #### 2 4321-2, 90111-6, #### [facility] CLIA [id number] 1 [place] [address] [place] Nucleated RBC/100 WBC (Bld) [Ratio] 0.0 /100 WBC Normal [facility] Comment on above: Order Comment: Speci men Type: BLOOD SPECIMEN [facility] Address: [address] [place] [address] Performed By: #### 2 4321-2, 79573-4, #### [facility] CLIA [id number] [address] [place] Platelet mean volume (Bld) [Entitic vol] 9.4 fL Normal 9.0-12.7 [facility] Comment on above: Order Comment: Speci men Type: BLOOD SPECIMEN [facility]ing [facility] Address: [address] [place] [address] Performed By: #### 2 4321-2, 46071-9, #### [facility] CLIA [id number] [address] [place] Platelets (Bld) [#/Vol] 330 10*3/uL Normal 150-400 [facility] Comment on above: Order Comment: Speci men Type: BLOOD SPECIMEN [facility]ing [facility] Address: [address] [place] [address] Performed By: #### 2 4321-2, 72070-6, #### [facility] CLIA [id number] 1 [place] [address] [place] RBC (Bld) [#/Vol] 4.35 10*6/uL Normal 3.90-5.20 [facility] Comment on above: Order Comment: Speci men Type: BLOOD SPECIMEN [facility] Address: [address] [place] [address] Performed By: #### 2 4321-2, 24729-8, #### [facility] CLIA [id number] 1 [place] [address] [place] WBC (Bld) [#/Vol] 5.67 10*3/uL Normal 3.70-11.00 [facility] Comment on above: Order Comment: Speci men Type: BLOOD SPECIMEN [facility]: [facility] Address: [address] [place] [address] Performed By: #### 2 4321-2, 92969-0, 49608-4 #### [facility] CLIA [id number] [address] Comprehensive metabolic 2000 panelon 06-10-2024 Albumin [Mass/Vol] 4.2 g/dL Normal 3.9-4.9 [facility] Comment on above: Order Comment: Speci men Type: BLOOD SPECIMENOrdering Facility: [facility] Address: [address] [place] [address] Performed By: #### 3 016-3, 84651-2, 302-7, 28278-7 ####[facility]ATORYCLIA [id number] [address] STATES OF [facility] ALP [Catalytic activity/Vol] 99 U/L Normal 34-123 [facility] Comment on above: Order Comment: Speci men Type: BLOOD SPECIMENOrdering Facility: [facility] Address: [address] [place] [address] Performed By: #### 3 016-3, 75715-6, 3023-7, 55485-4 ####[facility]ATORYCLIA [id number] [address] OF [facility] ALT With P-5'-P [Catalytic activity/Vol] 8 U/L Normal 7-38 [facility] Comment on above: Order Comment: Speci men Type: BLOOD SPECIMENOrdering Facility: [facility] Address: [address] [place] [address] Performed By: #### 3 016-3, 17302-6, 302-7, 40437-1 ####[facility]ORATORYCLIA [id number] [place] [id number] [place] [facility] Anion gap [Moles/Vol] 12 mmol/L Normal 8-15 [facility] Comment on above: Order Comment: Speci men Type: BLOOD SPECIMENOrdering Facility: [facility] Address: [address] [place] [address] Performed By: #### 3 016-3, 77241-9, 302-7, 38815-6 ####[facility]ORATORYCLIA [id number] [place] [address] [place] AST With P-5'-P [Catalytic activity/Vol] 12 U/L Low 13-35 [facility] Comment on above: Order Comment: Speci men Type: BLOOD SPECIMENOrdering Facility: [facility] Address: [address] [place] [address] Performed By: #### 3 016-3, 71024-4, 3024-01, 03306-1 ####[facility]ORATORYCLIA [id number] [place] [address] [place] Bilirubin [Mass/Vol] 0.4 mg/dL Normal 0.2-1.3 [facility] Comment on above: Order Comment: Speci men Type: BLOOD SPECIMENOrdering Facility: [facility] Address: [address] [place] [address] Performed By: #### 3 016-3, 58598-9, 3024-01, ####[facility] [id number] [place] [address] [place] Calcium [Mass/Vol] 9.5 mg/dL Normal 8.5-10.2 [facility] Comment on above: Order Comment: Speci men Type: BLOOD SPECIMENOrdering Facility: [facility] Address: [address] [place] [address] Performed By: #### 3 016-3, 86211-8, 3024-01, ####[facility]ATORYCLIA [id number] [place] [address] [place] Chloride [Moles/Vol] 101 mmol/L Normal 98-107 [facility] Comment on above: Order Comment: Speci men Type: BLOOD SPECIMENOrdering Facility: [facility] Address: [address] [place] [address] Performed By: #### 3 016-3, 85956-7, 3024-01, 93270-9 ####[facility]ORYCLIA [id number] [address] [place] CO2 [Moles/Vol] 23 mmol/L Normal 22-30 [facility] Comment on above: Order Comment: Rhina mason Type: BLOOD SPECIMENOrdering Facility: [facility] Address: [address] [place] [address] Performed By: #### 3 016-3, 60405-7, 3024-7, 57161-5 ####[facility]ATORYCLIA [id number] [address] [place] Creatinine [Mass/Vol] 0.87 mg/dL Normal 0.58-0.96 [facility] Comment on above: Order Comment: Rhina mason Type: BLOOD SPECIMENOrdering Facility: [facility] Address: [address] [place] [address] Performed By: #### 3 016-3, 69592-9, 3024-7, 32834-8 ####[facility] [id number] [address] Creatinine and Glomerular filtration rate.predicted panel (S/P/Bld) 66 mL/min/1.73m??? Normal >=60 [facility] Comment on above: Order Comment: Rhina mason Type: BLOOD SPECIMENOrdering Facility: [facility] Address: [address] [place] [address] Result Comment: Isa mated Glomerular Filtration Rate [...] actual GFR. Performed By: #### 3 016-3, 63020-0, 3024-7, 58011-2 ####[facility]ORYCLIA [id number] [address] [place] Glucose [Mass/Vol] 157 mg/dL High 74-99 [facility] Comment on above: Order Comment: Rhina mason Type: BLOOD SPECIMENOrdering Facility: [facility] Address: [address] [place] [id number] Result Comment: The [employer] Diabetes [employer] (ADA) provides guidance for cutoff [...] Standards of Medical Care in Diabetes 2016, [employer]. Diabetes Care. 2016.39(Suppl 1). Performed By: #### 3 016-3, 27094-2, 3023-7, 28538-6 ####[facility]ATORYCLIA [id number] [place] [address] [place] Potassium [Moles/Vol] 4.3 mmol/L Normal 3.7-5.1 [facility] Comment on above: Order Comment: Speci men Type: BLOOD SPECIMENOrdering Facility: [facility] Address: [address] [place] [address] Performed By: #### 3 016-3, 72384-4, 7, 07562-5 ####[facility] LABORATORYCLIA [id number] [place] [address] [place] Protein [Mass/Vol] 7.1 g/dL Normal 6.3-8.0 [facility] Comment on above: Order Comment: Speci men Type: BLOOD SPECIMENOrdering Facility: [facility] Address: [address] [id number] Performed By: #### 3 016-3, 31331-3, 7, 72236-6 ####[facility] LABORATORYCLIA [id number] [place] [address] [place] Sodium [Moles/Vol] 136 mmol/L Normal 136-144 [facility] Comment on above: Order Comment: Speci men Type: BLOOD SPECIMENOrdering Facility: [facility] Address: [address] [place], [place] [address] Performed By: #### 3 016-3, 14178-4, 3024-7, 66439-6 ####[facility] LABORATORYCLIA [id number] [place] [id number] [place] [facility] Urea nitrogen [Mass/Vol] 14 mg/dL Normal 7-21 [facility] Comment on above: Order Comment: Speci men Type: BLOOD SPECIMENOrdering Facility: [facility] Address: [address] [place], [place] [address] Performed By: #### 3 016-3, 47033-9, 3024-7, 15667-1 ####[facility] LABORATORYCLIA [id number] [address] OF [facility] ECG COMPLETEon 06-10-2024 ECG COMPLETE Ventricular Rate : 6 4 BPM QRS Duration : 90 ms Q-T Interval : 424 ms QTC Calculation(Bazett) : 437 ms Calculated R Luke : 56 degrees Calculated T Luke : 20 degrees ATRIAL FIBRILLATION ABNORMAL ECG NO PREVIOUS ECGS AVAILABLE Confirmed by SAKINA MELLO MD ([id number]) on 12/07/2024 10:44:28 PM NAME : MEL GUADARRAMA PID : [id number] : 1940 Gender : Female Race : ORD : [id number] Procedure Date : Jun 10 2024 23:35:14 Edit Date : Dec 07 2024 22:44:32 Diagnosis: ATRIAL FIBRILLATION ABNORMAL ECG NO PREVIOUS ECGS AVAILABLE Confirmed by SAKINA MELLO MD ([id number]) on 12/07/2024 10:44:28 PM Test Reason : Chest Pain Location : 4 : AKED EM Overread By : SAKINA MELLO MD Edited By : SAKINA MELLO MD Referred By : , Acquired by : REGAN RODRIGES [facility] ED NOTEon 06-10-2024 ED NOTE HNO ID: [id number] Author: DAMARIS HERNANDEZ RN Service: ? Author Type: Registered Nurse Type: ED Notes Filed: 06/10/2024 23:06 Note Text: Bed: 36-ED Expected date: Expected time: Means of arrival: Comments: RAMESH Barrett [facility] ED PROV NOTEon 06-10-2024 ED PROV NOTE HNO ID: [id number] Author: THOMAS SERNA MD Service: Emergency Medicine [...] nausea vomiting. THOMAS SERNA 06/11/24 0519 Normal [facility] ED PROV NOTE HNO ID: [id number] Author: THOMAS SERNA MD Service: Emergency Medicine [...] Labs Ord (more content not included)... Normal [facility] HIGH SENSITIVITY TROPONIN T (INITIAL)on 06-10-2024 Troponin T.cardiac High sensitivity method [Mass/Vol] 14 ng/L High <12 [facility] Comment on above: Order Comment: Rhina mason Type: BLOOD SPECIMENOrdering Facility: [facility] Address: [address] [place] [address] Performed By: #### L [id number] ####[facility] LABORATORYCLIA [id number] [place] [address] [place] HbA1c (Bld)on 06-10-2024 Average glucose Estimated from glycated hemoglobin (Bld) [Mass/Vol] 120 mg/dL Normal [facility] Comment on above: Order Comment: Rhina mason Type: BLOOD SPECIMEN [facility] Address: [address] [place] [id number] Result Comment: eAG: (Estimated average glucose) is a calculated value from HgbA1c and is loss prevention representative of the average blood glucose level in the last 2-3 month period. Performed By: #### 2 4321-2, 09994-4, #### [facility] CLIA [id number] [address] [place] HbA1c (Bld) [Mass fraction] 5.8 % High 4.3-5.6 [facility] Comment on above: Order Comment: Rhnia mason Type: BLOOD SPECIMEN [facility] Address: [address] [place] [address] Result Comment: [facility] Diabetes Association guidelines indicate that patients with HgbA1c in the range 5.7-6.4% are at increased risk for development of diabetes, and intervention by lifestyle modification may be beneficial. HgbA1c greater or equal to 6.5% is considered diagnostic of diabetes. Performed By: #### 2 4321-2, 64925-1, #### [facility] CLIA [id number] [address] [place] Lipid 1996 panelon 4 Cholesterol [Mass/Vol] 227 mg/dL High <200 [facility] Comment on above: Order Comment: Rhina mason Type: BLOOD SPECIMENOrdering Facility: [facility] Address: [address] [place] [address] Result Comment: <200 mg/dL, Desirable 200-239 mg/dL, Borderline high >239 mg/dL, High Performed By: #### 3 016-3, 10737-3, 3024-7, 85978-7 ####[facility] LABORATORYCLIA [id number] [address] [place] Cholesterol in HDL [Mass/Vol] 78 mg/dL Normal >39 [facility] Comment on above: Order Comment: Rhina mason Type: BLOOD SPECIMENOrdering Facility: [facility] Address: [address] [place] [address] Result Comment: 40-5 9 mg/dL, Acceptable >59 mg/dL, High: Negative risk factor for coronary heart disease <40 mg/dL, Low: Positive risk factor for coronary heart disease Performed By: #### 3 016-3, 80254-0, 3024-7, 05111-2 ####[facility] LABORATORYCLIA [id number] [place] [address] [place] [facility] Cholesterol in LDL [Mass/Vol] 139 mg/dL High <100 [facility] Comment on above: Order Comment: Speci men Type: BLOOD SPECIMENOrdering Facility: [facility] Address: [address] [place] [address] Result Comment: <100 mg/dL, Optimal 100-129 mg/dL, Near optimal/above optimal 130-159 mg/dL, Borderline high 160-189 mg/dL, High >189 mg/dL, Very high Secondary prevention optimal LDL Cholesterol levels are recommended to be < 70 mg/dL Performed By: #### 3 016-3, 57460-7, 3023-7, 22875-1 ####[facility]ITALCL[facility] [id number] [address] Cholesterol in LDL/Cholesterol in HDL [Mass ratio] 1.78 {ratio} Normal <2.54 [facility] Comment on above: Order Comment: Speci men Type: BLOOD SPECIMENOrdering Facility: [facility] Address: [address] [place] [address] Result Comment: Refe rence: 1. National Cholesterol Education Program ATP III Guideline At-A-Glance Quick Desk Reference: National Heart, Lung, and Blood [place]. National Institutes of Health. 2001: NIH Publication No. 01-3305. 2. An International Atherosclerosis Society position paper: global recommendations for the management of dyslipidemia: executive summary, Atherosclerosis. 2014: 232(2):410-413. Performed By: #### 3 016-3, 27503-7, 302-7, 20896-0 ####[facility] LABORATORYCLIA [id number] [place] [id number] [facility] Cholesterol in VLDL [Mass/Vol] 10 mg/dL Normal <30 [facility] Comment on above: Order Comment: Speci men Type: BLOOD SPECIMENOrdering Facility: [facility] Address: [address] [place] [address] Performed By: #### 3 016-3, 47146-8, 7, 99105-8 ####[facility] LABORATORYCLIA [id number] [address] [place] Cholesterol non HDL [Mass/Vol] 149 mg/dL High <130 [facility] Comment on above: Order Comment: Speci men Type: BLOOD SPECIMENOrdering Facility: [facility] Address: [address] [place] [address] Result Comment: <130 mg/dL, Optimal 130-159 mg/dL, Near optimal/above optimal 160-189 mg/dL, Borderline high 190-219 mg/dL, High >219 mg/dL, Very high Secondary prevention optimal non HDL Cholesterol levels are recommended to be <100 mg/dL Performed By: #### 3 016-3, 41771-3, 7, 67643-3 ####[facility] LABORATORYCLIA [id number] [address] Cholesterol.total/Pastora sterol in HDL [Mass ratio] 2.91 {ratio} Normal <5.10 [facility] Comment on above: Order Comment: Speci men Type: BLOOD SPECIMENOrdering Facility: [facility] Address: [address] [place] [address] Performed By: #### 3 016-3, 88169-1, 3024-01, 95396-2 ####[facility] LABORATORYCLIA [id number] [address] [place] FASTING TIME Normal [facility] Comment on above: Order Comment: Speci men Type: BLOOD SPECIMENOrdering Facility: [facility] Address: [address] [place] [address] Result Comment: Unkn own Performed By: #### 3 016-3, 17570-7, 3024-01, 58685-4 ####[facility] LABORATORYCLIA [id number] [address] [place] Triglyceride [Mass/Vol] 49 mg/dL Normal <150 [facility] Comment on above: Order Comment: Speci men Type: BLOOD SPECIMENOrdering Facility: [facility] Address: [address] [place] [address] Result Comment: <150 mg/dL, Normal 150-199 mg/dL, Borderline high 200-499 mg/dL, High >499 mg/dL, Very high Performed By: #### 3 016-3, 23388-3, 3024-7, 00035-8 ####[facility] LABORATORYCLIA [id number] [place] [address] [place] [facility] PT panel Coag (PPP)on 2023 INR Coag (PPP) [Relative time] 1.3 {INR} Normal 0.9-1.3 [facility] Comment on above: Order Comment: Rhina mason Type: BLOOD SPECIMENOrdering Facility: [facility] Address: [address] [place] [address] Result Comment: Mayra min K Antagonist (VKA) Therapeutic Range: INR 2 to 3 (Target INR of 2.5) Note: For patients treated with VKA drugs, such as warfarin, the [place] College [employer] 2012 Guideline recommends [...] Chest 2012, 141:7S-47S Daren RA, et al. [facility] 2017, 70: 252-289 Performed By: #### 3 4528-0 ####[facility] LABORATORYCLIA [id number] [place] [id number] [place] PT Coag (PPP) [Time] 13.2 s High 9.7-13.0 [facility] Comment on above: Order Comment: Rhina mason Type: BLOOD SPECIMENOrdering Facility: [facility] Address: [address] [place] [address] Performed By: #### 3 4528-0 ####[facility] LABORATORYCLIA [id number] [place] [address] [facility] T4 Free SerPl-mCncon 024 Free T4 [Mass/Vol] 1.3 ng/dL Normal 0.9-1.7 [facility] Comment on above: Order Comment: Speci men Type: BLOOD SPECIMENOrdering Facility: [facility] Address: [address] [place] [address] Performed By: #### 3 016-3, 22672-6, 3024-7, 53294-7 ####[facility] LABORATORYCLIA [id number] [address] OF [facility] TSH SerPl-aCncon 06-10-2024 TSH Qn 1.620 m[IU]/L Normal 0.270-4.200 [facility] Comment on above: Order Comment: Speci men Type: BLOOD SPECIMENOrdering Facility: [facility] Address: [address] [place] [address] Performed By: #### 3 016-3, 37533-6, 3024-7, 44908-5 ####[facility] LABORATORYCLIA [id number] [address] 36on 06-04-2024 36 Normal [facility] 36on 06-01-2024 36 Normal [facility] Progress Noteon 05-22-2024 Progress Note Normal [facility] PT Coag (Bld) [Time]on 05-21 INR Coag (PPP) [Relative time] 2.8 {INR} Abnormal 0.9 - 1.1 [facility] Interpretation and review of laboratory results Abnormal [facility] Progress Noteon 05-21-2024 Progress Note Normal [facility] Progress Note INR reported on b y Christin with [facility]. Christin can be reached at [phone] with questions. Normal [facility] Protime-INRon 05-21-2024 PT Coag (Bld) [Time] 33.9 s Abnormal 9.0 - 12.0 [facility] Heart TransthoracicOrdere d By: Davain Landrum on 05-14-2024 Ao Root Index 1.63 cm/m2 [facility] Work Phone: Aortic Arch 2.6 cm [facility] Work Phone: Aortic Root 2.8 cm [facility] Work Phone: Aortic Sinus Valsalva 2.8 cm [facility] Work Phone: Aortic Sinus Valsalva Index 1.63 cm/m2 [facility] Work Phone: Ascending Aorta 2.7 cm [facility] Work Phone: Ascending Aorta Index 1.57 cm/m2 [facility] Work Phone: AV Area by Peak Velocity 1.4 cm2 [facility] Work Phone: AV Area by VTI 1.4 cm2 [facility] Work Phone: AV Mean Gradient 3 mmHg [facility] Work Phone: AV Mean Velocity 0.9 m/s [facility] Work Phone: AV Peak Gradient 7 mmHg [facility] Work Phone: AV Peak Velocity 1.3 m/s [facility] Work Phone: AV Velocity Ratio 0.62 [facility] Work Phone: AV VTI 30 cm [facility] Work Phone: POLA/BSA Peak Velocity 0.8 cm2/m2 [facility] Work Phone: POLA/BSA VTI 0.8 cm2/m2 [facility] Work Phone: E/E' Lateral 14 [facility] Work Phone: E/E' Ratio (Averaged) 18 [facility] Work Phone: E/E' Septal 22 [facility] Work Phone: EF BP 61 % 55 - 100 % [facility] Work Phone: Est. RA Pressure 3 mmHg [facility] Work Phone: [phone] Fractional Shortening 2D 30 % 28 - 44 % [facility] [employer] Work Phone: [phone] Global Longitudinal Strain -15.3 % [facility] [employer] Work Phone: Interpretation and review of laboratory results Abnormal [facility] [employer] Work Phone: [phone] IVC Diameter 1.8 cm [facility] [employer] Work Phone: [phone] IVSd 1 cm Abnormal 0.6 - 0.9 cm [facility] [employer] Work Phone: [phone] LA Diameter 4.1 cm [facility] [employer] Work Phone: [phone] LA Size Index 2.38 cm/m2 [facility] [employer] Work Phone: [phone] LA Volume 2C 63 mL Abnormal 22 - 52 mL [facility] [employer] Work Phone: [phone] LA Volume 4C 80 mL Abnormal 22 - 52 mL [facility] [employer] Work Phone: [phone] LA Volume A/L 76 mL [facility] Work Phone: [phone] LA Volume BP 72 mL Abnormal 22 - 52 mL [facility] [employer] Work Phone: [phone] LA Volume Index 2C 37 mL/m2 Abnormal 16 - 34 mL/m2 [facility] [employer] Work Phone: [phone] LA Volume Index 4C 47 mL/m2 Abnormal 16 - 34 mL/m2 [facility] [employer] Work Phone: [phone] LA Volume Index A/L 44 mL/m2 16 - 34 mL/m2 [facility] [employer] Work Phone: [phone] LA Volume Index BP 42 ml/m2 Abnormal 16 - 34 ml/m2 [facility] [employer] Work Phone: [phone] LA/AO Root Ratio 1.46 [facility] Work Phone: LV E' Lateral Velocity 11 cm/s [facility] Work Phone: LV E' Septal Velocity 7 cm/s [facility] Work Phone: LV EDV A2C 45 mL [facility] Work Phone: LV EDV A4C 48 mL [facility] Work Phone: LV EDV BP 47 mL Abnormal 56 - 104 mL [facility] Work Phone: [phone] LV EDV Index A2C 26 mL/m2 [facility] Work Phone: LV EDV Index A4C 28 mL/m2 [facility] Work Phone: LV EDV Index BP 27 mL/m2 [facility] Work Phone: LV Ejection Fraction A2C 68 % [facility] Work Phone: [phone] LV Ejection Fraction A4C 55 % [facility] Work Phone: LV ESV A2C 14 mL [facility] Work Phone: LV ESV A4C 21 mL [facility] Work Phone: LV ESV BP 18 mL Abnormal 19 - 49 mL [facility] Work Phone: LV ESV Index A2C 8 mL/m2 [facility] Work Phone: LV ESV Index A4C 12 mL/m2 [facility] Work Phone: LV ESV Index BP 10 mL/m2 [facility] Work Phone: LV Mass 2D 142.5 g 67 - 162 g [facility] Work Phone: LV Mass 2D Index 82.8 g/m2 43 - 95 g/m2 [facility] Work Phone: LV RWT Ratio 0.47 [facility] Work Phone: LVIDd 4.3 cm 3.9 - 5.3 cm [facility] Work Phone: LVIDd Index 2.5 cm/m2 [facility] Work Phone: LVIDs 3 cm [facility] Work Phone: LVIDs Index 1.74 cm/m2 [facility] Work Phone: LVOT Area 2.5 cm2 [facility] Work Phone: LVOT Cardiac Output 3.2 liter/mi nut e [facility] Work Phone: LVOT Diameter 1.8 cm [facility] Work Phone: LVOT Mean Gradient 1 mmHg [facility] Work Phone: LVOT Peak Gradient 2 mmHg [facility] Work Phone: LVOT Peak Velocity 0.8 m/s [facility] Work Phone: LVOT Stroke Volume Index 25.1 mL/m2 [facility] Work Phone: LVOT SV 43.2 ml [facility] Work Phone: LVOT VTI 17 cm [facility] Work Phone: LVOT:AV VTI Index 0.57 [facility] ealth Work Phone: LVPWd 1 cm Abnormal 0.6 - 0.9 cm [facility] Work Phone: MV A Velocity 0.41 m/s [facility] Work Phone: MV Area by PHT 3.3 cm2 [facility] Work Phone: MV Area by VTI 1.2 cm2 [facility] Work Phone: MV E Velocity 1.54 m/s [facility] Work Phone: MV E Wave Deceleration Time 180.9 ms [facility] Work Phone: MV E/A 3.76 [facility] Work Phone: MV Max Velocity 1.7 m/s [facility] Work Phone: MV Mean Gradient 4 mmHg [facility] Work Phone: MV Mean Velocity 0.9 m/s [facility] Work Phone: MV Peak Gradient 11 mmHg [facility] Work Phone: MV PHT 66.9 ms [facility] Work Phone: MV VTI 35.1 cm [facility] Work Phone: MV:LVOT VTI Index 2.06 [facility] Work Phone: [phone] RA Area 4C 55.1 mL [facility] Work Phone: [phone] RV Basal Dimension 2.7 cm [facility] Work Phone: [phone] RV Free Wall Peak S' 11 cm/s [facility] Work Phone: [phone] RV Longitudinal Dimension 4.9 cm [facility] Work Phone: [phone] RV Mid Dimension 2.1 cm [facility] alth Work Phone: [phone] RVSP 54 mmHg [facility] Work Phone: [phone] Sinotubular Junction 2.7 cm [facility] Work Phone: [phone] TAPSE 1.5 cm Abnormal 1.7 cm [facility] Work Phone: [phone] TR Max Velocity 3.56 m/s [facility] Work Phone: [phone] TR Peak Gradient 51 mmHg [facility] alth Work Phone: [phone] TR Peak Velocity PISA 3.6 m/s [facility] Work Phone: TR VTI 120.8 cm [facility] Work Phone: [phone] TV EROA 0.2 cm2 [facility] Work Phone: TV Nyquist Velocity 39 cm/s [facility] Work Phone: [phone] [facility] Work Phone: [phone] Heart Transthoracicon [...] time] 2.7 {INR} Abnormal 0.9 - 1.1 [facility] Interpretation and review of laboratory results Abnormal [facility] Progress Noteon 05-09-2024 Progress Note Graciela from [facility] call ed in results. Normal [facility] Progress Note Normal [facility] Protime-INRon 05-09-2024 PT Coag (Bld) [Time] 32.1 s Abnormal 9.0 - 12.0 [facility] PT Coag (Bld) [Time]on 05-01 INR Coag (PPP) [Relative time] 2.7 {INR} Abnormal 0.9 - 1.1 [facility] Interpretation and review of laboratory results Abnormal [facility] Progress Noteon 05-01-2024 Progress Note Normal [facility] Progress Note Tia- [facility]- [phone] Normal [facility] Protime-INRon 05-01-2024 PT Coag (Bld) [Time] 32.4 s Abnormal 9.0 - 12.0 [facility] 36on 04-27-2024 36 Pt requested refill on warfarin 5mg. Sent to [facility]. Receipt confirmed by pharmacy. Normal [facility] Progress Noteon 04-27-2024 Progress Note Normal [facility] Progress Note Tia- [facility]- [phone] Normal [facility] Progress Noteon 04-25-2024 Progress Note Normal [facility] Progress Noteon 04-23-2024 Progress Note Normal [facility] Progress Note Christin [facility] called any questions or concerns [phone]. Normal [facility] PT Coag (Bld) [Time]on 04-19 INR Coag (PPP) [Relative time] 2.1 {INR} Abnormal 0.9 - 1.1 [facility] Interpretation and review of laboratory results Abnormal [facility] Progress Noteon 04-19-2024 Progress Note Normal [facility] Progress Note Graciela with [facility] repo rts INR on Graciela can be reached at [phone] with any questions. Normal [facility] Protime-INRon 04-19-2024 PT Coag (Bld) [Time] 24.9 s Abnormal 9.0 - 12.0 [facility] Progress Noteon 04-16-2024 Progress Note Christin- [facility]- [phone] Normal [facility] Progress Note Normal [facility] Progress Noteon 04-14-2024 Progress Note Placed new order for POCT INR, [facility] had not received. Normal [facility] [id number] 04-13-2024 [id number] Normal [facility] APTTon 04-13-2024 aPTT Coag (Bld) [Time] 132.2 s Critically high 20.0-30. 5 [facility] Comment on above: Result Comment: ORDE R COMMENTS:NOTE: The therapeutic time for Heparin anticoagulation, based on Xa activity inhibition, is an APTT of 46-80 seconds. Performed By: #### L AB320, TLA180 ####Crabber: VELMA VALADEZ ([phone])[facility])[address] [place] [address] BASIC METABOLIC PANELon 09-2 Anion gap [Moles/Vol] 2 mmol/L Low 3-13 [facility] Comment on above: Performed By: #### L AB15 ####Crabber: VELMA VALADEZ ([id number])[facility] ([facility])[address] [place] [address] Calcium [Mass/Vol] 9.0 mg/dL Normal 8.4-10.4 [facility] Comment on above: Performed By: #### L AB15 ####Crabber: VELMA VALADEZ ([phone])[facility] ([facility])[address] [place] [address] Chloride [Moles/Vol] 108 mmol/L High 98-107 [facility] Comment on above: Performed By: #### L AB15 ####Crabber: VELMA VALADEZ ([id number])[facility] ([facility])[address] [place] [address] CO2 [Moles/Vol] 25 mmol/L Normal 22-30 [facility] Comment on above: Performed By: #### L AB15 ####Crabber: VELMA VALADEZ ([phone])[facility])[address] [place] [address] Creatinine [Mass/Vol] 1.00 mg/dL Normal 0.52-1.04 [facility] Comment on above: Performed By: #### L AB15 ####Crabber: VELMA VALADEZ ([id number])[facility])[address] [place] [address] GLOMERULAR FILTRATION RATE ML/MIN/1.73 SQ M.PREDICTED 55.7 mL/min/1.73m*2 Low >60.0 [facility] Comment on above: Result Comment: Calc ulation based on the Chronic Kidney Disease Epidemiology Collaboration (CKD-EPI) equation refit without adjustment for race Performed By: #### L [id number] ####Crabber: VELMA VALADEZ ([phone])[facility])[address] [place] [address] Glucose [Mass/Vol] 98 mg/dL Normal 70-100 [facility] Comment on above: Performed By: #### L [id number] ####Crabber: VELMA VALADEZ ([phone])[facility])[address] [place] [address] Potassium [Moles/Vol] 4.3 mmol/L Normal 3.5-5.1 [facility] Comment on above: Performed By: #### L [id number] ####Crabber: VELMA VALADEZ ([phone])[facility] ([facility])[address] [place] [address] Sodium [Moles/Vol] 135 mmol/L Normal 135-145 [facility] Comment on above: Performed By: #### L [id number] ####Crabber: VELMA VALADEZ ([id number])[facility] ([facility])[address] [place] [address] Urea nitrogen [Mass/Vol] 18 mg/dL High 7-17 [facility] Comment on above: Performed By: #### L [id number] ####Crabber: VELMA VALADEZ ([phone])[facility])[address] [place] [address] Basic metabolic 1998 panelon 04-13-2024 Anion gap [Moles/Vol] 2 mmol/L Low 3 - 13 mmol/L [facility] Calcium [Mass/Vol] 9.0 mg/dL 8.4 - 10. 4 mg/dL [facility] Chloride [Moles/Vol] 108 mmol/L High 98 - 10 7 mmol/L [facility] CO2 [Moles/Vol] 25 mmol/L 22 - 30 mmol/L [facility] Creatinine [Mass/Vol] 1.00 mg/dL 0.52 - 1.04 mg/dL [facility] GFR/1.73 sq M.predicted (S/P/Bld) [Vol rate/Area] 55.7 mL/min Low - PINF [facility] Comment on above: Calculation based on the Chronic Kidney Disease Epidemiology Collaboration (CKD-EPI) equation refit without adjustment for race Glucose [Mass/Vol] 98 mg/dL 70 - 100 mg/dL [facility] Interpretation and review of laboratory results Abnormal [facility] Potassium [Moles/Vol] 4.3 mmol/L 3.5 - 5.1 mmol/L [facility] Sodium [Moles/Vol] 135 mmol/L 135 - 145 mmol/L [facility] Urea nitrogen [Mass/Vol] 18 mg/dL High 7 - 17 mg/dL [facility] CARECOORDon 04-13-2024 [facility] Normal [facility] Normal [facility] CBC W Auto Differential pane l (Bld)on 04-13-2024 Basophils (Bld) [#/Vol] 0.0 10*3/uL 0.0 - 0.2 10*3/uL [facility] Basophils/100 WBC (Bld) 0.7 % 0.0 - 2.0 % [facility] Eosinophils (Bld) [#/Vol] 0.1 10*3/uL 0.0 - 0.5 10*3/uL [facility] Eosinophils/100 WBC (Bld) 2.6 % 0.0 - 6.0 % [facility] Erythrocyte distribution width (RBC) [Ratio] 14.5 % 11.5 - 15.0 % [facility] Hematocrit (Bld) [Volume fraction] 26.3 % Low 35.0 - 47.0 % [facility] Hemoglobin (Bld) [Mass/Vol] 8.6 g/dL Low 11.7 - 16.0 g/dL [facility] Immature granulocytes (Bld) [#/Vol] 0.0 10*3/uL NINF - 0.1 10*3/uL [facility] Immature granulocytes/100 WBC (Bld) 0.2 % 0.0 - 2.0 % [facility] Interpretation and review of laboratory results Abnormal [facility] Lymphocytes (Bld) [#/Vol] 1.4 10*3/uL 1.0 - 4.3 10*3/uL [facility] Lymphocytes/100 WBC (Bld) 33.5 % 15.0 - 45.0 % [facility] MCH (RBC) [Entitic mass] 29.8 pg 26.0 - 34.0 pg [facility] MCHC (RBC) [Mass/Vol] 32.7 % 30.5 - 36.0 % [facility] MCV (RBC) [Entitic vol] 91.0 fL 77.0 - 99.0 fL [facility] Monocytes (Bld) [#/Vol] 0.5 10*3/uL 0.0 - 0.9 10*3/uL [facility] Monocytes/100 WBC (Bld) 11.3 % 5.0 - 13.0 % [facility] Neutrophils (Bld) [#/Vol] 2.2 10*3/uL 1.8 - 7.5 10*3/uL [facility] Neutrophils/100 WBC (Bld) 51.7 % 38.0 - 82.0 % [facility] Nucleated RBC/100 WBC (Bld) [Ratio] 0.0 % [facility] Platelet mean volume (Bld) [Entitic vol] 9.4 fL 9.0 - 12.7 fL [facility] Platelets (Bld) [#/Vol] 317 10*3/uL 140 - 440 10*3/uL [facility] RBC (Bld) [#/Vol] 2.89 10*6/uL Low 3.80 - 5.2 0 10*6/uL [facility] WBC (Bld) [#/Vol] 4.2 10*3/uL 3.6 - 10.7 10*3/uL [facility] CBC WITH AUTO DIFFERENTIALon 04-13-2024 Basophils (Bld) [#/Vol] 0.0 10*3/uL Normal 0.0-0.2 [facility] Comment on above: Performed By: #### L [id number] ####Crabber: VELMA VALADEZ ([phone])[facility] ([facility])[address] [place] [address] Basophils/100 WBC (Bld) 0.7 % Normal 0.0-2.0 [facility] Comment on above: Performed By: #### L [id number] ####Crabber: VELMA VALADEZ ([phone])[facility] ([facility])[address] [place] [address] Eosinophils (Bld) [#/Vol] 0.1 10*3/uL Normal 0.0-0.5 [facility] Comment on above: Performed By: #### L [id number] ####Crabber: VELMA VALADEZ ([phone])[facility])[address] [place] [address] Eosinophils/100 WBC (Bld) 2.6 % Normal 0.0-6.0 [facility] Comment on above: Performed By: #### L [id number] ####Crabber: VELMA VALADEZ ([id number])[facility])[address] [place] [address] Erythrocyte distribution width (RBC) [Ratio] 14.5 % Normal 11.5-15.0 [facility] Comment on above: Performed By: #### L [id number] ####Crabber: VELMA VALADEZ ([id number])[facility])[address] [place] [address] Hematocrit (Bld) [Volume fraction] 26.3 % Low 35.0-47.0 [facility] Comment on above: Performed By: #### L [id number] ####Crabber: VELMA VALAEDZ ([phone])[address] Hemoglobin (Bld) [Mass/Vol] 8.6 g/dL Low 11.7-16.0 [facility] Comment on above: Performed By: #### L [id number] ####Crabber: VELMA VALADEZ ([phone])[facility])[address] [place] [address] IMMATURE GRANS % 0.2 % Normal 0.0-2.0 [facility] Comment on above: Performed By: #### L [id number] ####Crabber: VELMA VALADEZ ([phone])[facility])[address] [place] [address] IMMATURE GRANS ABSOLUTE 0.0 10*3/uL Normal <0.1 [facility] Comment on above: Performed By: #### L [id number] ####Crabber: VELMA VALADEZ ([phone])[facility])[address] [place] [address] Lymphocytes (Bld) [#/Vol] 1.4 10*3/uL Normal 1.0-4.3 [facility] Comment on above: Performed By: #### L [id number] ####Crabber: VELMA VALADEZ ([id number])[facility])[address] [place] [address] Lymphocytes/100 WBC (Bld) 33.5 % Normal 15.0-45.0 [facility] Comment on above: Performed By: #### L [id number] ####Crabber: VELMA VALADEZ ([id number])[facility])[address] [place] [address] MCH (RBC) [Entitic mass] 29.8 pg Normal 26.0-34.0 [facility] Comment on above: Performed By: #### L [id number] ####Crabber: VELMA VALADEZ ([id number])[facility])[address] [place] [address] MCHC 32.7 % Normal 30.5-36.0 [facility] Comment on above: Performed By: #### L [id number] ####Crabber: VELMA VALADEZ ([phone])[facility])[address] [place] [address] MCV (RBC) [Entitic vol] 91.0 fL Normal 77.0-99.0 [facility] Comment on above: Performed By: #### L [id number] ####Crabber: VELMA VALADEZ ([id number])[facility])[address] [place] [address] Monocytes (Bld) [#/Vol] 0.5 10*3/uL Normal 0.0-0.9 [facility] Comment on above: Performed By: #### L [id number] ####Crabber: VELMA VALADEZ ([id number])[facility] ([facility])[address] [place] [address] Monocytes/100 WBC (Bld) 11.3 % Normal 5.0-13.0 [facility] Comment on above: Performed By: #### L [id number] ####Crabber: VELMA VALADEZ ([id number])[facility] ([facility])[address] [place] [address] NEUTROPHILS ABSOLUTE 2.2 10*3/uL Normal 1.8-7.5 [facility] Comment on above: Performed By: #### L [id number] ####Crabber: VELMA VALADEZ ([id number])[facility] ([facility])[address] [place] [address] Neutrophils/100 WBC (Bld) 51.7 % Normal 38.0-82.0 [facility] Comment on above: Performed By: #### L [id number] ####Crabber: VELMA VALADEZ ([phone])[facility] ([facility])[address] [place] [address] NRBC 0.0 /100 WBCs Normal 0.0-2.0 [facility] Comment on above: Performed By: #### L [id number] ####Crabber: VELMA VALADEZ ([id number])[facility] ([facility])[address] [place] [address] Platelet mean volume (Bld) [Entitic vol] 9.4 fL Normal 9.0-12.7 [facility] Comment on above: Performed By: #### L [id number] ####Crabber: VELMA VALADEZ ([id number])[facility] ([facility])[address] [place] [address] [place] Platelets (Bld) [#/Vol] 317 10*3/uL Normal 140-440 [facility] Comment on above: Performed By: #### L [id number] ####Crabber: VELMA VALADEZ ([id number])[facility] ([facility])[address] [place] [address] [place] RBC (Bld) [#/Vol] 2.89 10*6/uL Low 3.80-5.20 [facility] Comment on above: Performed By: #### L [id number] ####Crabber: VELMA VALADEZ ([id number])[facility])[address] [place] [address] WBC (Bld) [#/Vol] 4.2 10*3/uL Normal 3.6-10.7 [facility] Comment on above: Performed By: #### L [id number] ####Crabber: VELMA VALADEZ ([id number])[facility])[address] [place] [address] IDNon 04-13-2024 IDN Normal [facility] Laboratory - Coagulationon 0 04-13-2024 PT Coag (Bld) [Time] 24.2 s High 9.0 - 1 2.0 s [facility] Nursing Noteon 04-13-2024 Nursing Note AVS explained. Discharged patient on stable condition. Normal [facility] Nursing Note Instructed patient o n warfarin dosing, she will take 7.5mg tomorrow, and 5mg Tuesday, and then we will check INR with home care on Tuesday as instructed. Normal [facility] PROTHROMBIN TIMEon INR Coag (PPP) [Relative time] 2.3 {INR} High 0.9-1.1 [facility] Comment on above: Result Comment: Timothy [...] Myocardial Infarction Performed By: #### L [id number], [id number] ####Crabber: VELMA VALADEZ ([id number])[facility] ([facility])[address] [place] [address] PT Coag (PPP) [Time] 24.2 s High 9.0-12.0 [facility] Comment on above: Performed By: #### L [id number], [id number] ####Crabber: VELMA VALADEZ ([phone])[facility] ([facility])[address] [place] [address] PT Coag (Bld) [Time]on 04-13 INR Coag (PPP) [Relative time] 2.3 {INR} High 0.9 - 1.1 [facility] Comment on above: Recommended Anticoag ulant [...] Interpretation and review of laboratory results Abnormal [facility] Progress Noteon 04-13-2024 Progress Note Normal [facility] Progress Note Normal [facility] Progress Note Normal [facility] aPTT Coag (Bld) [Time]Ordere d By: Melany Tejeda on 04-13-2024 aPTT Coag (PPP) [Time] 132.2 s Critically high 20 .0 - 30.5 s [facility] Interpretation and review of laboratory results Abnormal [facility] NOTE: The therapeuti c time for Heparin anticoagulation, based on Xa activity inhibition, is an APTT of 46-80 seconds. [facility] BASIC METABOLIC PANELon 03-19 Anion gap [Moles/Vol] 3 mmol/L Normal 3-13 [facility] Comment on above: Performed By: #### L [id number] ####Crabber: VELMA VALADEZ ([phone])[facility] ([facility])[address] [place] [address] Calcium [Mass/Vol] 9.3 mg/dL Normal 8.4-10.4 [facility] Comment on above: Performed By: #### L [id number] ####Crabber: VELMA VALADEZ ([phone])[facility] ([facility])[address] [place] [address] Chloride [Moles/Vol] 108 mmol/L High 98-107 [facility] Comment on above: Performed By: #### L [id number] ####Crabber: VELMA VALADEZ ([phone])[facility] ([facility])[address] [place] [address] CO2 [Moles/Vol] 24 mmol/L Normal 22-30 [facility] Comment on above: Performed By: #### L [id number] ####Crabber: VELMA VALADEZ ([phone])[facility])[address] [place] [address] Creatinine [Mass/Vol] 0.99 mg/dL Normal 0.52-1.04 [facility] Comment on above: Performed By: #### L [id number] ####Crabber: VELMA VALADEZ ([phone])[facility] ([facility])[address] [place] [address] GLOMERULAR FILTRATION RATE ML/MIN/1.73 SQ M.PREDICTED 56.3 mL/min/1.73m*2 Low >60.0 [facility] Comment on above: Result Comment: Calc ulation based on the Chronic Kidney Disease Epidemiology Collaboration (CKD-EPI) equation refit without adjustment for race Performed By: #### L [id number] ####Crabber: VELMA VALADEZ ([phone])[facility] ([facility])[address] [place] [address] Glucose [Mass/Vol] 101 mg/dL High 70-100 [facility] Comment on above: Performed By: #### L [id number] ####Crabber: VELMA AVLADEZ ([phone])[facility])[address] [place] [address] Potassium [Moles/Vol] 3.9 mmol/L Normal 3.5-5.1 [facility] Comment on above: Performed By: #### L [id number] ####Crabber: VELMA [id number])[facility] ([facility])[address] [place] [address] Sodium [Moles/Vol] 135 mmol/L Normal 135-145 [facility] Comment on above: Performed By: #### L [id number] ####Crabber: VELMA VALADEZ ([phone])[facility] ([facility])[address] [place] [address] Urea nitrogen [Mass/Vol] 16 mg/dL Normal 7-17 [facility] Comment on above: Performed By: #### L [id number] ####Crabber: VELMA VALADEZ ([id number])[facility] ([facility])[address] [place] [address] Basic metabolic 1998 panelon 04-12-2024 Anion gap [Moles/Vol] 3 mmol/L 3 - 13 mmol/L [facility] Calcium [Mass/Vol] 9.3 mg/dL 8.4 - 10. 4 mg/dL [facility] Chloride [Moles/Vol] 108 mmol/L High 98 - 10 7 mmol/L [facility] CO2 [Moles/Vol] 24 mmol/L 22 - 30 mmol/L [facility] Creatinine [Mass/Vol] 0.99 mg/dL 0.52 - 1.04 mg/dL [facility] GFR/1.73 sq M.predicted (S/P/Bld) [Vol rate/Area] 56.3 mL/min Low - PINF [facility] Comment on above: Calculation based on the Chronic Kidney Disease Epidemiology Collaboration (CKD-EPI) equation refit without adjustment for race Glucose [Mass/Vol] 101 mg/dL High 70 - 100 mg/dL [facility] Interpretation and review of laboratory results Abnormal [facility] Potassium [Moles/Vol] 3.9 mmol/L 3.5 - 5.1 mmol/L [facility] Sodium [Moles/Vol] 135 mmol/L 135 - 145 mmol/L [facility] Urea nitrogen [Mass/Vol] 16 mg/dL 7 - 17 mg/dL [facility] CARECOORDon 04-12-2024 CARECOORD Normal [facility] CBC W Auto Differential pane l (Bld)on 04-12-2024 Basophils (Bld) [#/Vol] 0.0 10*3/uL 0.0 - 0.2 10*3/uL [facility] Basophils/100 WBC (Bld) 0.5 % 0.0 - 2.0 % [facility] Eosinophils (Bld) [#/Vol] 0.1 10*3/uL 0.0 - 0.5 10*3/uL [facility] Eosinophils/100 WBC (Bld) 2.4 % 0.0 - 6.0 % [facility] Erythrocyte distribution width (RBC) [Ratio] 14.8 % 11.5 - 15.0 % [facility] Hematocrit (Bld) [Volume fraction] 28.3 % Low 35.0 - 47.0 % [facility] Hemoglobin (Bld) [Mass/Vol] 9.3 g/dL Low 11.7 - 16.0 g/dL [facility] Immature granulocytes (Bld) [#/Vol] 0.0 10*3/uL NINF - 0.1 10*3/uL [facility] Immature granulocytes/100 WBC (Bld) 0.2 % 0.0 - 2.0 % [facility] Interpretation and review of laboratory results Abnormal [facility] Lymphocytes (Bld) [#/Vol] 1.4 10*3/uL 1.0 - 4.3 10*3/uL [facility] Lymphocytes/100 WBC (Bld) 33.0 % 15.0 - 45.0 % [facility] MCH (RBC) [Entitic mass] 30.4 pg 26.0 - 34.0 pg [facility] MCHC (RBC) [Mass/Vol] 32.9 % 30.5 - 36.0 % [facility] MCV (RBC) [Entitic vol] 92.5 fL 77.0 - 99.0 fL [facility] Monocytes (Bld) [#/Vol] 0.5 10*3/uL 0.0 - 0.9 10*3/uL [facility] Monocytes/100 WBC (Bld) 11.9 % 5.0 - 13.0 % [facility] Neutrophils (Bld) [#/Vol] 2.1 10*3/uL 1.8 - 7.5 10*3/uL [facility] Neutrophils/100 WBC (Bld) 52.0 % 38.0 - 82.0 % [facility] Nucleated RBC/100 WBC (Bld) [Ratio] 0.0 % [facility] Platelet mean volume (Bld) [Entitic vol] 9.5 fL 9.0 - 12.7 fL [facility] Platelets (Bld) [#/Vol] 307 10*3/uL 140 - 440 10*3/uL [facility] RBC (Bld) [#/Vol] 3.06 10*6/uL Low 3.80 - 5.2 0 10*6/uL [facility] WBC (Bld) [#/Vol] 4.1 10*3/uL 3.6 - 10.7 10*3/uL [facility] CBC WITH AUTO DIFFERENTIALon 04-12-2024 Basophils (Bld) [#/Vol] 0.0 10*3/uL Normal 0.0-0.2 [facility] Comment on above: Performed By: #### L [id number] ####Crabber: VELMA VALADEZ ([phone])[facility])[address] [place] [address] Basophils/100 WBC (Bld) 0.5 % Normal 0.0-2.0 [facility] Comment on above: Performed By: #### L [id number] ####Crabber: VELMA VALADEZ ([phone])[facility])[address] [place] [address] Eosinophils (Bld) [#/Vol] 0.1 10*3/uL Normal 0.0-0.5 [facility] Comment on above: Performed By: #### L [id number] ####Crabber: VELMA VALADEZ ([phone])[facility])[address] [place] [address] Eosinophils/100 WBC (Bld) 2.4 % Normal 0.0-6.0 [facility] Comment on above: Performed By: #### L [id number] ####Crabber: VELMA VALADEZ ([phone])[facility])[address] [place] [address] Erythrocyte distribution width (RBC) [Ratio] 14.8 % Normal 11.5-15.0 [facility] Comment on above: Performed By: #### L [id number] ####Crabber: VELMA VALADEZ ([id number])[facility] ([facility])[address] [place] [address] Hematocrit (Bld) [Volume fraction] 28.3 % Low 35.0-47.0 [facility] Comment on above: Performed By: #### L [id number] ####Crabber: VELMA VALADEZ ([phone])[facility] ([facility])[address] [place] [address] Hemoglobin (Bld) [Mass/Vol] 9.3 g/dL Low 11.7-16.0 [facility] Comment on above: Performed By: #### L [id number] ####Crabber: VELMA VALADEZ ([id number])[facility])[address] [place] [address] IMMATURE GRANS % 0.2 % Normal 0.0-2.0 [facility] Comment on above: Performed By: #### L [id number] ####Crabber: VELMA VALADEZ ([id number])[facility] ([facility])[address] [place] [address] IMMATURE GRANS ABSOLUTE 0.0 10*3/uL Normal <0.1 [facility] Comment on above: Performed By: #### L [id number] ####Crabber: VELMA VALADEZ ([phone])[facility])[address] [place] [address] Lymphocytes (Bld) [#/Vol] 1.4 10*3/uL Normal 1.0-4.3 [facility] Comment on above: Performed By: #### L [id number] ####Crabber: VELMA VALADEZ ([phone])[facility])[address] [place] [address] Lymphocytes/100 WBC (Bld) 33.0 % Normal 15.0-45.0 [facility] Comment on above: Performed By: #### L [id number] ####Crabber: VELMA VALADEZ ([phone])[facility])[address] [place] [address] MCH (RBC) [Entitic mass] 30.4 pg Normal 26.0-34.0 [facility] Comment on above: Performed By: #### L [id number] ####Crabber: VELMA VALADEZ ([id number])[facility])[address] [place] [address] MCHC 32.9 % Normal 30.5-36.0 [facility] Comment on above: Performed By: #### L [id number] ####Crabber: VELMA VALADEZ ([phone])[facility])[address] [place] [address] MCV (RBC) [Entitic vol] 92.5 fL Normal 77.0-99.0 [facility] Comment on above: Performed By: #### L [id number] ####Crabber: VELMA VALADEZ ([phone])[facility] ([facility])[address] [place] [address] Monocytes (Bld) [#/Vol] 0.5 10*3/uL Normal 0.0-0.9 [facility] Comment on above: Performed By: #### L [id number] ####Crabber: VELMA VALADEZ ([phone])[facility] ([facility])[address] [place] [address] Monocytes/100 WBC (Bld) 11.9 % Normal 5.0-13.0 [facility] Comment on above: Performed By: #### L [id number] ####Crabber: VELMA VALADEZ ([phone])[facility] ([facility])[address] [place] [address] NEUTROPHILS ABSOLUTE 2.1 10*3/uL Normal 1.8-7.5 [facility] Comment on above: Performed By: #### L [id number] ####Crabber: VELMA VALADEZ ([phone])[facility])[address] [place] [address] Neutrophils/100 WBC (Bld) 52.0 % Normal 38.0-82.0 [facility] Comment on above: Performed By: #### L [id number] ####Crabber: VELMA VALADEZ ([phone])[facility])[address] [place] [address] NRBC 0.0 /100 WBCs Normal 0.0-2.0 Formerly [facility] Comment on above: Performed By: #### L [id number] ####Crabber: VELMA VALADEZ ([id number])[facility] ([facility])[address] [place] [address] Platelet mean volume (Bld) [Entitic vol] 9.5 fL Normal 9.0-12.7 [facility] Comment on above: Performed By: #### L [id number] ####Crabber: VELMA VALADEZ ([phone])[facility] ([facility])[address] [place] [address] Platelets (Bld) [#/Vol] 307 10*3/uL Normal 140-440 [facility] Comment on above: Performed By: #### L [id number] ####Crabber: VELMA VALADEZ ([phone])[facility] ([facility])[address] [place] [address] RBC (Bld) [#/Vol] 3.06 10*6/uL Low 3.80-5.20 [facility] Comment on above: Performed By: #### L [id number] ####Crabber: VELMA VALADEZ ([phone])[facility] ([facility])[address] [place] [address] WBC (Bld) [#/Vol] 4.1 10*3/uL Normal 3.6-10.7 [facility] Comment on above: Performed By: #### L [id number] ####Crabber: VELMA VALADEZ ([phone])[facility] ([facility])[address] [place] [address] [place] IDNon 04-12-2024 IDN Normal [facility] IDN Normal [facility] - Coagulationon 0 04-12-2024 PT Coag (Bld) [Time] 20.3 s High 9.0 - 1 2.0 s [facility] PROTHROMBIN TIMEon INR Coag (PPP) [Relative time] 1.9 {INR} High 0.9-1.1 [facility] Comment on above: Result Comment: Timothy [...] Myocardial Infarction Performed By: #### L [id number] ####Crabber: VELMA VALADEZ ([id number])[address] PT Coag (PPP) [Time] 20.3 s High 9.0-12.0 [facility] Comment on above: Performed By: #### L [id number] ####Crabber: VELMA VALADEZ ([phone])[facility] ([facility])[address] [place] [address] PT Coag (Bld) [Time]on 04-12 INR Coag (PPP) [Relative time] 1.9 {INR} High 0.9 - 1.1 [facility] Comment on above: Recommended Anticoag ulant [...] Interpretation and review of laboratory results Abnormal [place] Hospital Progress Noteon 04-12-2024 Progress Note Normal [facility] Normal [facility] APTTon 04-11-2024 aPTT Coag (Bld) [Time] 62.7 s High 20.0-30.5 [facility] Comment on above: Result Comment: BUBBA Garcia COMMENTS:NOTE: The therapeutic time for Heparin anticoagulation, based on Xa activity inhibition, is an APTT of 46-80 seconds. Performed By: #### L [id number] ####Crabber: VELMA VALADEZ ([phone])[facility] ([facility])[address] [place] [address] aPTT Coag (Bld) [Time] 69.0 s High 20.0-30.5 [facility] Comment on above: Result Comment: BUBBA Garcia COMMENTS:NOTE: The therapeutic time for Heparin anticoagulation, based on Xa activity inhibition, is an APTT of 46-80 seconds. Performed By: #### L [id number], [id number] ####Crabber: VELMA VALADEZ ([phone])[facility] ([facility])[address] [place] [address] BASIC METABOLIC PANELon 03-19 Anion gap [Moles/Vol] 4 mmol/L Normal 3-13 [facility] Comment on above: Performed By: #### L [id number] ####Crabber: VELMA VALADEZ ([phone])[facility] ([facility])[address] [place] [address] Calcium [Mass/Vol] 8.8 mg/dL Normal 8.4-10.4 [facility] Comment on above: Performed By: #### L [id number] ####Crabber: VELMA VALADEZ ([phone])[facility] ([facility])[address] [place] [address] [place] Chloride [Moles/Vol] 108 mmol/L High 98-107 [facility] Comment on above: Performed By: #### L [id number] ####Crabber: VELMA VALADEZ ([phone])[facility] ([facility])[address] [place] [address] CO2 [Moles/Vol] 22 mmol/L Normal 22-30 [facility] Comment on above: Performed By: #### L [id number] ####Crabber: VELMA VALADEZ ([phone])[facility])[address] [place] [address] Creatinine [Mass/Vol] 1.01 mg/dL Normal 0.52-1.04 [facility] Comment on above: Performed By: #### L [id number] ####Crabber: VELMA VALADEZ ([phone])[facility])[address] [place] [address] GLOMERULAR FILTRATION RATE ML/MIN/1.73 SQ M.PREDICTED 55.0 mL/min/1.73m*2 Low >60.0 [facility] Comment on above: Result Comment: Calc ulation based on the Chronic Kidney Disease Epidemiology Collaboration (CKD-EPI) equation refit without adjustment for race Performed By: #### L [id number] ####Crabber: VELMA VALADEZ ([phone])[facility])[address] [place] [address] Glucose [Mass/Vol] 112 mg/dL High 70-100 [facility] Comment on above: Performed By: #### L [id number] ####Crabber: VELMA VALADEZ ([phone])[facility])[address] [place] [address] Potassium [Moles/Vol] 4.0 mmol/L Normal 3.5-5.1 [facility] Comment on above: Performed By: #### L [id number] ####Crabber: VELMA VALADEZ ([phone])[facility])[address] [place] [address] [place] Sodium [Moles/Vol] 134 mmol/L Low 135-145 [facility] Comment on above: Performed By: #### L [id number] ####Crabber: VELMA VALADEZ ([id number])[facility])[address] [place] [address] Urea nitrogen [Mass/Vol] 16 mg/dL Normal 7-17 [facility] Comment on above: Performed By: #### L [id number] ####Crabber: VELMA [id number])[facility] ([facility])[address] [place] [address] Basic metabolic 1998 panelon 04-11-2024 Anion gap [Moles/Vol] 4 mmol/L 3 - 13 mmol/L [facility] Calcium [Mass/Vol] 8.8 mg/dL 8.4 - 10. 4 mg/dL [facility] Chloride [Moles/Vol] 108 mmol/L High 98 - 10 7 mmol/L [facility] CO2 [Moles/Vol] 22 mmol/L 22 - 30 mmol/L [facility] Creatinine [Mass/Vol] 1.01 mg/dL 0.52 - 1.04 mg/dL [facility] GFR/1.73 sq M.predicted (S/P/Bld) [Vol rate/Area] 55.0 mL/min Low - PINF [facility] Comment on above: Calculation based on the Chronic Kidney Disease Epidemiology Collaboration (CKD-EPI) equation refit without adjustment for race Glucose [Mass/Vol] 112 mg/dL High 70 - 100 mg/dL [facility] Interpretation and review of laboratory results Abnormal [facility] Potassium [Moles/Vol] 4.0 mmol/L 3.5 - 5.1 mmol/L [facility] Sodium [Moles/Vol] 134 mmol/L Low 135 - 145 mmol/L [facility] Urea nitrogen [Mass/Vol] 16 mg/dL 7 - 17 mg/dL [facility] CARECOORDon 04-11-2024 [facility] Normal [facility] CBC W Auto Differential pane l (Bld)on 04-11-2024 Basophils (Bld) [#/Vol] 0.0 10*3/uL 0.0 - 0.2 10*3/uL [facility] Basophils/100 WBC (Bld) 0.9 % 0.0 - 2.0 % [facility] Eosinophils (Bld) [#/Vol] 0.1 10*3/uL 0.0 - 0.5 10*3/uL [facility] Eosinophils/100 WBC (Bld) 2.0 % 0.0 - 6.0 % [facility] Erythrocyte distribution width (RBC) [Ratio] 14.8 % 11.5 - 15.0 % [facility] Hematocrit (Bld) [Volume fraction] 24.6 % Low 35.0 - 47.0 % [facility] Hemoglobin (Bld) [Mass/Vol] 8.3 g/dL Low 11.7 - 16.0 g/dL [facility] [employer] Immature granulocytes (Bld) [#/Vol] 0.0 10*3/uL NINF - 0.1 10*3/uL [facility] Immature granulocytes/100 WBC (Bld) 0.2 % 0.0 - 2.0 % [facility] Interpretation and review of laboratory results Abnormal [facility] Lymphocytes (Bld) [#/Vol] 1.4 10*3/uL 1.0 - 4.3 10*3/uL [facility] Lymphocytes/100 WBC (Bld) 31.9 % 15.0 - 45.0 % [facility] MCH (RBC) [Entitic mass] 30.5 pg 26.0 - 34.0 pg [facility] MCHC (RBC) [Mass/Vol] 33.7 % 30.5 - 36.0 % [facility] MCV (RBC) [Entitic vol] 90.4 fL 77.0 - 99.0 fL [facility] Monocytes (Bld) [#/Vol] 0.5 10*3/uL 0.0 - 0.9 10*3/uL [facility] Monocytes/100 WBC (Bld) 11.2 % 5.0 - 13.0 % [facility] Neutrophils (Bld) [#/Vol] 2.4 10*3/uL 1.8 - 7.5 10*3/uL [facility] Neutrophils/100 WBC (Bld) 53.8 % 38.0 - 82.0 % [facility] Nucleated RBC/100 WBC (Bld) [Ratio] 0.0 % [facility] Platelet mean volume (Bld) [Entitic vol] 10.0 fL 9.0 - 12.7 fL [facility] Platelets (Bld) [#/Vol] 244 10*3/uL 140 - 440 10*3/uL [facility] RBC (Bld) [#/Vol] 2.72 10*6/uL Low 3.80 - 5.2 0 10*6/uL [facility] WBC (Bld) [#/Vol] 4.5 10*3/uL 3.6 - 10.7 10*3/uL [facility] CBC WITH AUTO DIFFERENTIALon 04-11-2024 Basophils (Bld) [#/Vol] 0.0 10*3/uL Normal 0.0-0.2 [facility] Comment on above: Performed By: #### L [id number] ####Crabber: VELMA VALADEZ ([id number])[facility] ([facility])[address] [place] [address] Basophils/100 WBC (Bld) 0.9 % Normal 0.0-2.0 [facility] Comment on above: Performed By: #### L [id number] ####Crabber: VELMA VALADEZ ([phone])[facility])[address] [place] [address] Eosinophils (Bld) [#/Vol] 0.1 10*3/uL Normal 0.0-0.5 [facility] Comment on above: Performed By: #### L [id number] ####Crabber: VELMA VALADEZ ([phone])[facility])[address] [place] [address] Eosinophils/100 WBC (Bld) 2.0 % Normal 0.0-6.0 [facility] Comment on above: Performed By: #### L [id number] ####Crabber: VELMA VALADEZ ([phone])[facility])[address] [place] [address] Erythrocyte distribution width (RBC) [Ratio] 14.8 % Normal 11.5-15.0 [facility] Comment on above: Performed By: #### L [id number] ####Crabber: VELMA VALADEZ ([phone])[facility] ([facility])[address] [place] [address] Hematocrit (Bld) [Volume fraction] 24.6 % Low 35.0-47.0 [facility] Comment on above: Performed By: #### L [id number] ####Crabber: VELMA VALADEZ ([phone])[facility])[address] [place] [address] Hemoglobin (Bld) [Mass/Vol] 8.3 g/dL Low 11.7-16.0 [facility] Comment on above: Performed By: #### L [id number] ####Crabber: VELMA VALADEZ ([id number])[facility])[address] [place] [address] IMMATURE GRANS % 0.2 % Normal 0.0-2.0 [facility] Comment on above: Performed By: #### L [id number] ####Crabber: VELMA VALADEZ ([phone])[facility])[address] [place] [address] IMMATURE GRANS ABSOLUTE 0.0 10*3/uL Normal <0.1 [facility] Comment on above: Performed By: #### L [id number] ####Crabber: VELMA VALADEZ ([phone])[address] Lymphocytes (Bld) [#/Vol] 1.4 10*3/uL Normal 1.0-4.3 [facility] Comment on above: Performed By: #### L [id number] ####Crabber: VELMA VALADEZ ([id number])[address] Lymphocytes/100 WBC (Bld) 31.9 % Normal 15.0-45.0 [facility] Comment on above: Performed By: #### L [id number] ####Crabber: VELMA VALADEZ ([phone])[facility])[address] [place] [address] MCH (RBC) [Entitic mass] 30.5 pg Normal 26.0-34.0 [facility] Comment on above: Performed By: #### L [id number] ####Crabber: VELMA VALADEZ ([id number])[facility])[address] [place] [address] MCHC 33.7 % Normal 30.5-36.0 [facility] Comment on above: Performed By: #### L [id number] ####Crabber: VELMA VALADEZ ([id number])[facility] ([facility])[address] [place] [address] MCV (RBC) [Entitic vol] 90.4 fL Normal 77.0-99.0 [facility] Comment on above: Performed By: #### L [id number] ####Crabber: VELMA VALADEZ ([phone])[facility] ([facility])[address] [place] [address] [place] Monocytes (Bld) [#/Vol] 0.5 10*3/uL Normal 0.0-0.9 [facility] Comment on above: Performed By: #### L [id number] ####Crabber: VELMA VALADEZ ([phone])[facility] ([facility])[address] [place] [address] Monocytes/100 WBC (Bld) 11.2 % Normal 5.0-13.0 [facility] Comment on above: Performed By: #### L [id number] ####Crabber: VELMA VALADEZ ([phone])[facility] ([facility])[address] [place] [address] [place] NEUTROPHILS ABSOLUTE 2.4 10*3/uL Normal 1.8-7.5 [facility] Comment on above: Performed By: #### L [id number] ####Crabber: VELMA VALADEZ ([phone])[facility] ([facility])[address] [place] [address] [place] Neutrophils/100 WBC (Bld) 53.8 % Normal 38.0-82.0 [facility] Comment on above: Performed By: #### L [id number] ####Crabber: VELMA VALADEZ ([phone])[facility] ([facility])[address] [place] [address] [place] NRBC 0.0 /100 WBCs Normal 0.0-2.0 [facility] Comment on above: Performed By: #### L [id number] ####Crabber: VELMA VALADEZ ([phone])[facility] ([facility])[address] [place] [address] Platelet mean volume (Bld) [Entitic vol] 10.0 fL Normal 9.0-12.7 [facility] Comment on above: Performed By: #### L [id number] ####Crabber: VELMA VALADEZ ([phone])[facility] ([facility])[address] [place] [address] Platelets (Bld) [#/Vol] 244 10*3/uL Normal 140-440 [facility] Comment on above: Performed By: #### L [id number] ####Crabber: VELMA VALADEZ ([phone])[facility] ([facility])[address] [place] [address] RBC (Bld) [#/Vol] 2.72 10*6/uL Low 3.80-5.20 [facility] Comment on above: Performed By: #### L [id number] ####Crabber: VELMA VALADEZ ([phone])[facility] ([facility])[address] [place] [address] WBC (Bld) [#/Vol] 4.5 10*3/uL Normal 3.6-10.7 [facility] Comment on above: Performed By: #### L [id number] ####Crabber: VELMA VALADEZ ([phone])[facility] ([facility])[address] [place] [address] IDNon 04-11-2024 IDN Normal [facility] IDN Normal [facility] Laboratory - Coagulationon 0 04-11-2024 PT Coag (Bld) [Time] 20.9 s High 9.0 - 1 2.0 s [facility] No Panel Informationon 04-11 Interpretation and review of laboratory results Abnormal [facility] PROTHROMBIN TIMEon INR Coag (PPP) [Relative time] 1.9 {INR} High 0.9-1.1 [facility] Comment on above: Result Comment: Timothy [...] Myocardial Infarction Performed By: #### [place] [id number], [id number] ####Crabber: VELMA VALADEZ ([phone])[facility])[address] [place] [address] PT Coag (PPP) [Time] 20.9 s High 9.0-12.0 [facility] [employer] [facility] Comment on above: Performed By: #### [place] [id number], [id number] ####Crabber: VELMA VALADEZ ([phone])[facility] ([facility])[address] [place] [address] PT Coag (Bld) [Time]on 04-11 INR Coag (PPP) [Relative time] 1.9 {INR} High 0.9 - 1.1 [facility] Comment on above: Recommended Anticoag ulant [...] Infarction Progress Noteon 04-11-2024 Progress Note Normal [facility] Progress Note Normal [facility] Progress Note Normal [facility] Progress Note Normal [facility] aPTT Coag (Bld) [Time]on aPTT Coag (PPP) [Time] 62.7 s High 20.0 - 30.5 s [facility] Interpretation and review of laboratory results Abnormal [facility] NOTE: The therapeuti c time for Heparin anticoagulation, based on Xa activity inhibition, is an APTT of 46-80 seconds. [facility] aPTT Coag (PPP) [Time] 69.0 s High 20.0 - 30.5 s [facility] NOTE: The therapeuti c time for Heparin anticoagulation, based on Xa activity inhibition, is an APTT of 46-80 seconds. [facility] APTTon 04-10-2024 aPTT Coag (Bld) [Time] 59.0 s High 20.0-30.5 [facility] Comment on above: Result Comment: BUBBA Garcia COMMENTS:NOTE: The therapeutic time for Heparin anticoagulation, based on Xa activity inhibition, is an APTT of 46-80 seconds. Performed By: #### L [id number] ####Crabber: VELMA VALADEZ ([phone])[facility] ([facility])[address] [place] [address] aPTT Coag (Bld) [Time] 77.3 s High 20.0-30.5 [facility] Comment on above: Result Comment: BUBBA Garcia COMMENTS:NOTE: The therapeutic time for Heparin anticoagulation, based on Xa activity inhibition, is an APTT of 46-80 seconds. Performed By: #### L [id number], [id number] ####Crabber: VELMA VALADEZ ([phone])[facility] ([facility])[address] [place] [address] BASIC METABOLIC PANELon 03-19 Anion gap [Moles/Vol] 3 mmol/L Normal 3-13 [facility] Comment on above: Performed By: #### L [id number] ####Crabber: VELMA VALADEZ ([phone])[facility] ([facility])[address] [place] [address] Calcium [Mass/Vol] 9.0 mg/dL Normal 8.4-10.4 [facility] Comment on above: Performed By: #### L AB15 ####Crabber: VELMA VALADEZ ([phone])[facility])[address] [place] [address] Chloride [Moles/Vol] 111 mmol/L High 98-107 [facility] Comment on above: Performed By: #### L AB15 ####Crabber: VELMA [id number])[facility])[address] [place] [address] CO2 [Moles/Vol] 21 mmol/L Low 22-30 [facility] Comment on above: Performed By: #### L AB15 ####Crabber: VELMA VALADEZ ([id number])[facility] ([facility] [place] [address] Creatinine [Mass/Vol] 1.00 mg/dL Normal 0.52-1.04 [facility] Comment on above: Performed By: #### L AB15 ####Crabber: VELMA VALADEZ ([id number])[facility] ([facility])[address] [place] [address] GLOMERULAR FILTRATION RATE ML/MIN/1.73 SQ M.PREDICTED 55.7 mL/min/1.73m*2 Low >60.0 [facility] Comment on above: Result Comment: Calc ulation based on the Chronic Kidney Disease Epidemiology Collaboration (CKD-EPI) equation refit without adjustment for race Performed By: #### L AB15 ####Crabber: VELMA VALADEZ ([phone])[facility] ([facility])[address] [place] [address] Glucose [Mass/Vol] 101 mg/dL High 70-100 [facility] Comment on above: Performed By: #### L AB15 ####Crabber: VELMA VALADEZ ([phone])[facility] ([facility])[address] [place] [address] Potassium [Moles/Vol] 3.8 mmol/L Normal 3.5-5.1 [facility] Comment on above: Performed By: #### L [id number] ####Crabber: VELMA VALADEZ ([phone])[facility] ([facility])[address] [place] [address] Sodium [Moles/Vol] 136 mmol/L Normal 135-145 [facility] Comment on above: Performed By: #### L AB15 ####Crabber: VELMA VALADEZ ([phone])[facility] ([facility])[address] [place] [address] Urea nitrogen [Mass/Vol] 15 mg/dL Normal 7-17 [facility] Comment on above: Performed By: #### L AB15 ####Crabber: VELMA VALADEZ ([phone])[facility] ([facility])[address] Basic metabolic 1998 panelon 04-10-2024 Anion gap [Moles/Vol] 3 mmol/L 3 - 13 mmol/L [facility] Calcium [Mass/Vol] 9.0 mg/dL 8.4 - 10. 4 mg/dL [facility] Chloride [Moles/Vol] 111 mmol/L High 98 - 10 7 mmol/L [facility] CO2 [Moles/Vol] 21 mmol/L Low 22 - 30 mmol/L [facility] Creatinine [Mass/Vol] 1.00 mg/dL 0.52 - 1.04 mg/dL [facility] GFR/1.73 sq M.predicted (S/P/Bld) [Vol rate/Area] 55.7 mL/min Low - PINF [facility] Comment on above: Calculation based on the Chronic Kidney Disease Epidemiology Collaboration (CKD-EPI) equation refit without adjustment for race Glucose [Mass/Vol] 101 mg/dL High 70 - 100 mg/dL [facility] Interpretation and review of laboratory results Abnormal [facility] Potassium [Moles/Vol] 3.8 mmol/L 3.5 - 5.1 mmol/L [facility] Sodium [Moles/Vol] 136 mmol/L 135 - 145 mmol/L [facility] Urea nitrogen [Mass/Vol] 15 mg/dL 7 - 17 mg/dL [facility] CARECOORDon 04-10-2024 CARECOORD Normal [facility] CBC W Auto Differential pane l (Bld)on 04-10-2024 Basophils (Bld) [#/Vol] 0.0 10*3/uL 0.0 - 0.2 10*3/uL [facility] Basophils/100 WBC (Bld) 0.7 % 0.0 - 2.0 % [facility] Eosinophils (Bld) [#/Vol] 0.1 10*3/uL 0.0 - 0.5 10*3/uL [facility] Eosinophils/100 WBC (Bld) 2.1 % 0.0 - 6.0 % [facility] Erythrocyte distribution width (RBC) [Ratio] 14.7 % 11.5 - 15.0 % [facility] Hematocrit (Bld) [Volume fraction] 26.0 % Low 35.0 - 47.0 % [facility] Hemoglobin (Bld) [Mass/Vol] 8.6 g/dL Low 11.7 - 16.0 g/dL [facility] Immature granulocytes (Bld) [#/Vol] 0.0 10*3/uL NINF - 0.1 10*3/uL [facility] Immature granulocytes/100 WBC (Bld) 0.2 % 0.0 - 2.0 % [facility] Interpretation and review of laboratory results Abnormal [facility] Lymphocytes (Bld) [#/Vol] 1.4 10*3/uL 1.0 - 4.3 10*3/uL [facility] Lymphocytes/100 WBC (Bld) 32.9 % 15.0 - 45.0 % [facility] MCH (RBC) [Entitic mass] 30.1 pg 26.0 - 34.0 pg [facility] MCHC (RBC) [Mass/Vol] 33.1 % 30.5 - 36.0 % [facility] MCV (RBC) [Entitic vol] 90.9 fL 77.0 - 99.0 fL [facility] Monocytes (Bld) [#/Vol] 0.6 10*3/uL 0.0 - 0.9 10*3/uL [facility] Monocytes/100 WBC (Bld) 13.6 % High 5.0 - 13.0 % [facility] Neutrophils (Bld) [#/Vol] 2.1 10*3/uL 1.8 - 7.5 10*3/uL [facility] Neutrophils/100 WBC (Bld) 50.5 % 38.0 - 82.0 % [facility] Nucleated RBC/100 WBC (Bld) [Ratio] 0.0 % [facility] Platelet mean volume (Bld) [Entitic vol] 10.0 fL 9.0 - 12.7 fL [facility] Platelets (Bld) [#/Vol] 238 10*3/uL 140 - 440 10*3/uL [facility] RBC (Bld) [#/Vol] 2.86 10*6/uL Low 3.80 - 5.2 0 10*6/uL [facility] WBC (Bld) [#/Vol] 4.3 10*3/uL 3.6 - 10.7 10*3/uL [facility] CBC WITH AUTO DIFFERENTIALon 04-10-2024 Basophils (Bld) [#/Vol] 0.0 10*3/uL Normal 0.0-0.2 [facility] Comment on above: Performed By: #### L [id number] ####Crabber: VELMA VALADEZ ([phone])[facility])[address] [place] [address] Basophils/100 WBC (Bld) 0.7 % Normal 0.0-2.0 [facility] Comment on above: Performed By: #### L [id number] ####Crabber: VELMA VALADEZ ([phone])[facility])[address] [place] [address] Eosinophils (Bld) [#/Vol] 0.1 10*3/uL Normal 0.0-0.5 [facility] Comment on above: Performed By: #### L [id number] ####Crabber: VELMA VALADEZ ([phone])[facility])[address] [place] [address] Eosinophils/100 WBC (Bld) 2.1 % Normal 0.0-6.0 [facility] Comment on above: Performed By: #### L [id number] ####Crabber: VELMA VALADEZ ([phone])[facility])[address] [place] [address] Erythrocyte distribution width (RBC) [Ratio] 14.7 % Normal 11.5-15.0 [facility] Comment on above: Performed By: #### L [id number] ####Crabber: VELMA VALADEZ ([phone])[facility])[address] [place] [address] Hematocrit (Bld) [Volume fraction] 26.0 % Low 35.0-47.0 [facility] Comment on above: Performed By: #### L [id number] ####Crabber: VELMA VALADEZ ([id number])[facility])[address] [place] [address] Hemoglobin (Bld) [Mass/Vol] 8.6 g/dL Low 11.7-16.0 [facility] Comment on above: Performed By: #### L [id number] ####Crabber: VELMA VALADEZ ([id number])[facility])[address] [place] [address] IMMATURE GRANS % 0.2 % Normal 0.0-2.0 [facility] Comment on above: Performed By: #### L [id number] ####Crabber: VELMA VALADEZ ([id number])[address] IMMATURE GRANS ABSOLUTE 0.0 10*3/uL Normal <0.1 [facility] Comment on above: Performed By: #### L [id number] ####Crabber: VELMA VALADEZ ([phone])[facility])[address] [place] [address] Lymphocytes (Bld) [#/Vol] 1.4 10*3/uL Normal 1.0-4.3 [facility] Comment on above: Performed By: #### L [id number] ####Crabber: VELMA VALADEZ ([id number])[address] Lymphocytes/100 WBC (Bld) 32.9 % Normal 15.0-45.0 [facility] Comment on above: Performed By: #### L [id number] ####Crabber: VELMA VALADEZ ([id number])[facility])[address] [place] [address] MCH (RBC) [Entitic mass] 30.1 pg Normal 26.0-34.0 [facility] Comment on above: Performed By: #### L [id number] ####Crabber: VELMA VALADEZ ([id number])[facility])[address] [place] [address] MCHC 33.1 % Normal 30.5-36.0 [facility] Comment on above: Performed By: #### L [id number] ####Crabber: VELMA VALADEZ ([phone])[facility])[address] [place] [address] MCV (RBC) [Entitic vol] 90.9 fL Normal 77.0-99.0 [facility] Comment on above: Performed By: #### L [id number] ####Crabber: VELMA VALADEZ ([phone])[facility] ([facility])[address] [place] [address] Monocytes (Bld) [#/Vol] 0.6 10*3/uL Normal 0.0-0.9 [facility] Comment on above: Performed By: #### L [id number] ####Crabber: VELMA VALADEZ ([phone])[facility] ([facility])[address] [place] [address] Monocytes/100 WBC (Bld) 13.6 % High 5.0-13.0 [facility] Comment on above: Performed By: #### L [id number] ####Crabber: VELMA VALADEZ ([phone])[facility] ([facility])[address] [place] [address] NEUTROPHILS ABSOLUTE 2.1 10*3/uL Normal 1.8-7.5 [facility] Comment on above: Performed By: #### L [id number] ####Crabber: VELMA VALADEZ ([phone])[facility] ([facility])[address] [place] [address] Neutrophils/100 WBC (Bld) 50.5 % Normal 38.0-82.0 [facility] Comment on above: Performed By: #### L [id number] ####Crabber: VELMA VALADEZ ([id number])[facility] ([facility])[address] [place] [address] [place] NRBC 0.0 /100 WBCs Normal 0.0-2.0 [facility] Comment on above: Performed By: #### L [id number] ####Crabber: VELMA VALADEZ ([phone])[facility])[address] [place] [address] Platelet mean volume (Bld) [Entitic vol] 10.0 fL Normal 9.0-12.7 [facility] Comment on above: Performed By: #### L [id number] ####Crabber: VELMA VALADEZ ([phone])[facility] ([facility])[address] [place] [address] Platelets (Bld) [#/Vol] 238 10*3/uL Normal 140-440 [facility] Comment on above: Performed By: #### L [id number] ####Crabber: VELMA VALADEZ ([phone])[facility])[address] [place] [address] RBC (Bld) [#/Vol] 2.86 10*6/uL Low 3.80-5.20 [facility] Comment on above: Performed By: #### L [id number] ####Crabber: VELMA VALADEZ ([phone])[facility])[address] [place] [address] WBC (Bld) [#/Vol] 4.3 10*3/uL Normal 3.6-10.7 [facility] Comment on above: Performed By: #### L [id number] ####Crabber: VELMA VALADEZ ([phone])[facility])[address] [place] [address] IDNon 04-10-2024 IDN Normal [facility] Laboratory - Coagulationon 0 04-10-2024 PT Coag (Bld) [Time] 17.7 s High 9.0 - 1 2.0 s [facility] No Panel Informationon 04-10 Interpretation and review of laboratory results Abnormal [facility] PROTHROMBIN TIMEon INR Coag (PPP) [Relative time] 1.6 {INR} High 0.9-1.1 [facility] Comment on above: Result Comment: Timothy [...] Myocardial Infarction Performed By: #### [place] [id number], [id number] ####Crabber: VELMA VALADEZ ([phone])[facility] ([facility])[address] [place] [address] PT Coag (PPP) [Time] 17.7 s High 9.0-12.0 [facility] Comment on above: Performed By: #### [place]on AB325, [id number] ####Crabber: VELMA VALADEZ ([phone])[facility] ([facility])[address] [place] [address] PT Coag (Bld) [Time]on 04-10 INR Coag (PPP) [Relative time] 1.6 {INR} High 0.9 - 1.1 [facility] Comment on above: Recommended Anticoag ulant [...] Infarction Progress Noteon 04-10-2024 Progress Note Normal [facility] Progress Note Nutrition update completed. Chart reviewed. Patient to be monitored and followed by the diet repair technician. FADI Farrar Normal [facility] Progress Note Normal [facility] aPTT Coag (Bld) [Time]on aPTT Coag (PPP) [Time] 59.0 s High 20.0 - 30.5 s [facility] Interpretation and review of laboratory results Abnormal [facility] NOTE: The therapeuti c time for Heparin anticoagulation, based on Xa activity inhibition, is an APTT of 46-80 seconds. [facility] aPTT Coag (PPP) [Time] 77.3 s High 20.0 - 30.5 s [facility] NOTE: The therapeuti c time for Heparin anticoagulation, based on Xa activity inhibition, is an APTT of 46-80 seconds. [facility] APTTon 04-09-2024 aPTT Coag (Bld) [Time] 58.9 s High 20.0-30.5 [facility] Comment on above: Result Comment: BUBBA R COMMENTS:NOTE: The therapeutic time for Heparin anticoagulation, based on Xa activity inhibition, is an APTT of 46-80 seconds. Performed By: #### L [id number] ####Crabber: VELAM VALADEZ ([phone])[address] aPTT Coag (Bld) [Time] 64.6 s High 20.0-30.5 [facility] Comment on above: Result Comment: BUBBA Garcia COMMENTS:NOTE: The therapeutic time for Heparin anticoagulation, based on Xa activity inhibition, is an APTT of 46-80 seconds. Performed By: #### L [id number] ####Crabber: VELMA VALADEZ ([id number])[address] aPTT Coag (Bld) [Time] 82.3 s High 20.0-30.5 [facility] Comment on above: Result Comment: BUBBA Garcia COMMENTS:NOTE: The therapeutic time for Heparin anticoagulation, based on Xa activity inhibition, is an APTT of 46-80 seconds. Performed By: #### L [id number], [id number] ####Crabber: VELMA VALADEZ ([id number])[address] BASIC METABOLIC PANELon - Anion gap [Moles/Vol] 5 mmol/L Normal 3-13 [facility] Comment on above: Performed By: #### L [id number] ####Crabber: VELMA VALADEZ ([phone])[facility] ([facility])[address] [place] [address] Calcium [Mass/Vol] 8.9 mg/dL Normal 8.4-10.4 [facility] Comment on above: Performed By: #### L [id number] ####Crabber: VELMA VALADEZ ([phone])[facility] ([facility])[address] [place] [address] [place] Chloride [Moles/Vol] 116 mmol/L High 98-107 [facility] Comment on above: Performed By: #### L [id number] ####Crabber: VELMA VALADEZ ([phone])[facility] ([facility])[address] [place] [address] CO2 [Moles/Vol] 16 mmol/L Low 22-30 [facility] Comment on above: Performed By: #### L [id number] ####Crabber: VELMA VALADEZ ([id number])[facility] ([facility])[address] [place] [address] Creatinine [Mass/Vol] 0.93 mg/dL Normal 0.52-1.04 [facility] Comment on above: Performed By: #### L [id number] ####Crabber: VELMA VALADEZ ([phone])[facility] ([facility])[address] [place] [address] [place] GLOMERULAR FILTRATION RATE ML/MIN/1.73 SQ M.PREDICTED 60.7 mL/min/1.73m*2 Normal >60.0 [facility] Comment on above: Result Comment: Calc ulation based on the Chronic Kidney Disease Epidemiology Collaboration (CKD-EPI) equation refit without adjustment for race Performed By: #### L AB15 ####Crabber: VELMA VALADEZ ([id number])[facility] ([facility])[address] [place] [address] [place] Glucose [Mass/Vol] 119 mg/dL High 70-100 [facility] Comment on above: Performed By: #### L [id number] ####Crabber: VELMA VALADEZ ([id number])[facility] ([facility])[address] [place] [address] Potassium [Moles/Vol] 4.4 mmol/L Normal 3.5-5.1 [facility] Comment on above: Performed By: #### L [id number] ####Crabber: VELMA VALADEZ ([phone])[facility] ([facility])[address] [place] [address] Sodium [Moles/Vol] 136 mmol/L Normal 135-145 [facility] Comment on above: Performed By: #### L [id number] ####Crabber: VELMA VALADEZ ([id number])[facility] ([facility])[address] [place] [address] Urea nitrogen [Mass/Vol] 16 mg/dL Normal 7-17 [facility] Comment on above: Performed By: #### L [id number] ####Crabber: VELMA VALADEZ ([id number])[facility] ([facility])[address] [place] [address] Basic metabolic 1998 panelon 04-09-2024 Anion gap [Moles/Vol] 5 mmol/L 3 - 13 mmol/L [facility] Calcium [Mass/Vol] 8.9 mg/dL 8.4 - 10. 4 mg/dL [facility] Chloride [Moles/Vol] 116 mmol/L High 98 - 10 7 mmol/L [facility] CO2 [Moles/Vol] 16 mmol/L Low 22 - 30 mmol/L [facility] Creatinine [Mass/Vol] 0.93 mg/dL 0.52 - 1.04 mg/dL [facility] GFR/1.73 sq M.predicted (S/P/Bld) [Vol rate/Area] 60.7 mL/min - PINF [facility] Comment on above: Calculation based on the Chronic Kidney Disease Epidemiology Collaboration (CKD-EPI) equation refit without adjustment for race Glucose [Mass/Vol] 119 mg/dL High 70 - 100 mg/dL [facility] Interpretation and review of laboratory results Abnormal [facility] Potassium [Moles/Vol] 4.4 mmol/L 3.5 - 5.1 mmol/L [facility] Sodium [Moles/Vol] 136 mmol/L 135 - 145 mmol/L [facility] Urea nitrogen [Mass/Vol] 16 mg/dL 7 - 17 mg/dL [facility] CARECOORDon 04-09-2024 CARECOORD Normal [facility] CBC W Auto Differential pane l (Bld)on 04-09-2024 Basophils (Bld) [#/Vol] 0.0 10*3/uL 0.0 - 0.2 10*3/uL [facility] Basophils/100 WBC (Bld) 0.6 % 0.0 - 2.0 % [facility] Eosinophils (Bld) [#/Vol] 0.1 10*3/uL 0.0 - 0.5 10*3/uL [facility] Eosinophils/100 WBC (Bld) 0.9 % 0.0 - 6.0 % [facility] Erythrocyte distribution width (RBC) [Ratio] 14.8 % 11.5 - 15.0 % [facility] Hematocrit (Bld) [Volume fraction] 28.2 % Low 35.0 - 47.0 % [facility] Hemoglobin (Bld) [Mass/Vol] 9.0 g/dL Low 11.7 - 16.0 g/dL [facility] Immature granulocytes (Bld) [#/Vol] 0.0 10*3/uL NINF - 0.1 10*3/uL [facility] Immature granulocytes/100 WBC (Bld) 0.4 % 0.0 - 2.0 % [facility] Interpretation and review of laboratory results Abnormal [facility] Lymphocytes (Bld) [#/Vol] 2.2 10*3/uL 1.0 - 4.3 10*3/uL [facility] Lymphocytes/100 WBC (Bld) 31.2 % 15.0 - 45.0 % [facility] MCH (RBC) [Entitic mass] 29.8 pg 26.0 - 34.0 pg [facility] MCHC (RBC) [Mass/Vol] 31.9 % 30.5 - 36.0 % [facility] MCV (RBC) [Entitic vol] 93.4 fL 77.0 - 99.0 fL [facility] Monocytes (Bld) [#/Vol] 0.7 10*3/uL 0.0 - 0.9 10*3/uL [facility] Monocytes/100 WBC (Bld) 10.7 % 5.0 - 13.0 % [facility] Neutrophils (Bld) [#/Vol] 3.9 10*3/uL 1.8 - 7.5 10*3/uL [facility] Neutrophils/100 WBC (Bld) 56.2 % 38.0 - 82.0 % [facility] Nucleated RBC/100 WBC (Bld) [Ratio] 0.0 % [facility] Platelet mean volume (Bld) [Entitic vol] 10.2 fL 9.0 - 12.7 fL [facility] Platelets (Bld) [#/Vol] 235 10*3/uL 140 - 440 10*3/uL [facility] RBC (Bld) [#/Vol] 3.02 10*6/uL Low 3.80 - 5.2 0 10*6/uL [facility] WBC (Bld) [#/Vol] 6.9 10*3/uL 3.6 - 10.7 10*3/uL [facility] CBC WITH AUTO DIFFERENTIALon 04-09-2024 Basophils (Bld) [#/Vol] 0.0 10*3/uL Normal 0.0-0.2 [facility] Comment on above: Performed By: #### L [id number] ####Crabber: VELMA VALADEZ ([phone])[address] Basophils/100 WBC (Bld) 0.6 % Normal 0.0-2.0 [facility] Comment on above: Performed By: #### L [id number] ####Crabber: VELMA VALADEZ ([phone])[facility] ([facility])[address] [place] [address] Eosinophils (Bld) [#/Vol] 0.1 10*3/uL Normal 0.0-0.5 [facility] Comment on above: Performed By: #### L [id number] ####Crabber: VELMA VALADEZ ([phone])[facility])[address] [place] [address] Eosinophils/100 WBC (Bld) 0.9 % Normal 0.0-6.0 [facility] Comment on above: Performed By: #### L [id number] ####Crabber: VELMA VALADEZ ([id number])[address] Erythrocyte distribution width (RBC) [Ratio] 14.8 % Normal 11.5-15.0 [facility] Comment on above: Performed By: #### L [id number] ####Crabber: VELMA VALADEZ ([id number])[facility])[address] [place] [address] Hematocrit (Bld) [Volume fraction] 28.2 % Low 35.0-47.0 [facility] Comment on above: Performed By: #### L [id number] ####Crabber: VELMA VALADEZ ([id number])[address] Hemoglobin (Bld) [Mass/Vol] 9.0 g/dL Low 11.7-16.0 [facility] Comment on above: Performed By: #### L [id number] ####Crabber: VELMA VALADEZ ([phone])[facility])[address] [place] [address] IMMATURE GRANS % 0.4 % Normal 0.0-2.0 [facility] Comment on above: Performed By: #### L [id number] ####Crabber: VELMA VALADEZ ([id number])[address] IMMATURE GRANS ABSOLUTE 0.0 10*3/uL Normal <0.1 [facility] Comment on above: Performed By: #### L [id number] ####Crabber: VELMA VALADEZ ([id number])[address] Lymphocytes (Bld) [#/Vol] 2.2 10*3/uL Normal 1.0-4.3 [facility] Comment on above: Performed By: #### L [id number] ####Crabber: VELMA VALADEZ ([id number])[facility])[address] [place] [address] Lymphocytes/100 WBC (Bld) 31.2 % Normal 15.0-45.0 [facility] Comment on above: Performed By: #### L [id number] ####Crabber: VELMA VALADEZ ([id number])[facility])[address] [place] [address] MCH (RBC) [Entitic mass] 29.8 pg Normal 26.0-34.0 [facility] Comment on above: Performed By: #### L [id number] ####Crabber: VELMA VALADEZ ([phone])[facility])[address] [place] [address] MCHC 31.9 % Normal 30.5-36.0 [facility] Comment on above: Performed By: #### L [id number] ####Crabber: EVLMA VALADEZ ([phone])[facility])[address] [place] [address] MCV (RBC) [Entitic vol] 93.4 fL Normal 77.0-99.0 [facility] Comment on above: Performed By: #### L [id number] ####Crabber: VELMA VALADEZ ([phone])[facility])[address] [place] [address] Monocytes (Bld) [#/Vol] 0.7 10*3/uL Normal 0.0-0.9 [facility] Comment on above: Performed By: #### L [id number] ####Crabber: VELMA VALADEZ ([phone])[facility])[address] [place] [address] Monocytes/100 WBC (Bld) 10.7 % Normal 5.0-13.0 [facility] Comment on above: Performed By: #### L [id number] ####Crabber: VELMA VALADEZ ([phone])[facility])[address] [place] [address] NEUTROPHILS ABSOLUTE 3.9 10*3/uL Normal 1.8-7.5 [facility] Comment on above: Performed By: #### L [id number] ####Crabber: VELMA VALADEZ ([id number])[facility] ([facility])[address] [place] [address] Neutrophils/100 WBC (Bld) 56.2 % Normal 38.0-82.0 [facility] Comment on above: Performed By: #### L [id number] ####Crabber: VELMA VALADEZ ([id number])[facility] ([facility])[address] [place] [address] NRBC 0.0 /100 WBCs Normal 0.0-2.0 [facility] Comment on above: Performed By: #### L [id number] ####Crabber: VELMA VALADEZ ([phone])[facility] ([facility])[address] [place] [address] Platelet mean volume (Bld) [Entitic vol] 10.2 fL Normal 9.0-12.7 [facility] Comment on above: Performed By: #### L [id number] ####Crabber: VELMA VALADEZ ([phone])[facility] ([facility])[address] [place] [address] [place] Platelets (Bld) [#/Vol] 235 10*3/uL Normal 140-440 [facility] Comment on above: Performed By: #### L [id number] ####Crabber: VELMA VALADEZ ([id number])[facility] ([facility])[address] [place] [address] [place] RBC (Bld) [#/Vol] 3.02 10*6/uL Low 3.80-5.20 [facility] Comment on above: Performed By: #### L [id number] ####Crabber: VELMA VALADEZ ([phone])[facility] ([facility])[address] [place] [address] [place] WBC (Bld) [#/Vol] 6.9 10*3/uL Normal 3.6-10.7 [facility] Comment on above: Performed By: #### [place]on [id number] ####Crabber: VELMA VALADEZ ([phone])[facility])[address] [place] [address] Laboratory - Coagulationon 0 04-09-2024 PT Coag (Bld) [Time] 13.8 s High 9.0 - 1 2.0 s [facility] No Panel Informationon 04-09 Interpretation and review of laboratory results Abnormal [facility] PROTHROMBIN TIMEon INR Coag (PPP) [Relative time] 1.2 {INR} High 0.9-1.1 [facility] Comment on above: Result Comment: Timothy [...] Myocardial Infarction Performed By: #### [place]on [id number], [id number] ####Crabber: VELMA VALADEZ ([phone])[facility])[address] [place] [address] PT Coag (PPP) [Time] 13.8 s High 9.0-12.0 [facility] Comment on above: Performed By: #### L [id number], [id number] ####Crabber: VELMA VALADEZ ([phone])[facility])[address] [place] [address] PT Coag (Bld) [Time]on 04-09 INR Coag (PPP) [Relative time] 1.2 {INR} High 0.9 - 1.1 [facility] Comment on above: Recommended Anticoag ulant [...] Infarction Progress Noteon 04-09-2024 Progress Note Normal [facility] Progress Note Normal [facility] XR CHEST 1 VIEWon 04-09-2024 XR CHEST 1 VIEW [facility] XR Chest Single viewon 04-09 Mild cardiomegaly and pulmonary venous congestion with small pleural effusions. Report Dictated on Electronically Signed By: Di Leggett MD Electronically Signed Date/Time: 04/09/2024 1:42 PM EDT [facility] Patient Name: MEL CARVER RD : [...] the left shoulder. No acute osseous findings. [facility] Di Leggett M D - 04/09/2024 Patient [...] Electronically Signed Date/Time: 04/09/2024 1:42 PM EDT [facility] Radiology Study observation (narrative) [facility] alth XR Chest Single viewOrdered By: Di Leggett on 04-09-2024 [facility] Work Phone: aPTT Coag (Bld) [Time]on aPTT Coag (PPP) [Time] 58.9 s High 20.0 - 30.5 s [facility] Interpretation and review of laboratory results Abnormal [facility] NOTE: The therapeuti c time for Heparin anticoagulation, based on Xa activity inhibition, is an APTT of 46-80 seconds. [facility] aPTT Coag (PPP) [Time] 64.6 s High 20.0 - 30.5 s [facility] Interpretation and review of laboratory results Abnormal [facility] NOTE: The therapeuti c time for Heparin anticoagulation, based on Xa activity inhibition, is an APTT of 46-80 seconds. [facility] aPTT Coag (PPP) [Time] 82.3 s High 20.0 - 30.5 s [facility] NOTE: The therapeuti c time for Heparin anticoagulation, based on Xa activity inhibition, is an APTT of 46-80 seconds. [facility] APTTon 04-08-2024 aPTT Coag (Bld) [Time] 51.5 s High 20.0-30.5 [facility] Comment on above: Result Comment: BUBBA Garcia COMMENTS:NOTE: The therapeutic time for Heparin anticoagulation, based on Xa activity inhibition, is an APTT of 46-80 seconds. Performed By: #### L [id number] ####Crabber: VELMA VALADEZ ([phone])[facility] ([facility] aPTT Coag (Bld) [Time] 59.8 s High 20.0-30.5 [facility] Comment on above: Result Comment: BUBBA Garcia COMMENTS:NOTE: The therapeutic time for Heparin anticoagulation, based on Xa activity inhibition, is an APTT of 46-80 seconds. Performed By: #### L [id number] ####Crabber: VELMA VALADEZ ([phone])[facility] ([facility])[address] [place] [address] aPTT Coag (Bld) [Time] 41.4 s High 20.0-30.5 [facility] Comment on above: Result Comment: BUBBA Garcia COMMENTS:NOTE: The therapeutic time for Heparin anticoagulation, based on Xa activity inhibition, is an APTT of 46-80 seconds. Performed By: #### L [id number], [id number] ####Crabber: VELMA VALADEZ ([phone])[facility] ([facility])[address] [place] [address] BASIC METABOLIC PANELon 09-2 Anion gap [Moles/Vol] 5 mmol/L Normal 3-13 [facility] Comment on above: Performed By: #### L AB15 ####Crabber: VELMA VALADEZ ([phone])[facility] ([facility])[address] [place] [address] Calcium [Mass/Vol] 8.9 mg/dL Normal 8.4-10.4 [facility] Comment on above: Performed By: #### L AB15 ####Crabber: VELMA VALADEZ ([phone])[facility] ([facility])[address] [place] [address] Chloride [Moles/Vol] 113 mmol/L High 98-107 [facility] Comment on above: Performed By: #### L AB15 ####Crabber: VELMA VALADEZ ([phone])[facility] ([facility])[address] [place] [address] CO2 [Moles/Vol] 17 mmol/L Low 22-30 [facility] Comment on above: Performed By: #### L AB15 ####Crabber: VELMA [id number])[facility] ([facility])[address] [place] [address] Creatinine [Mass/Vol] 0.98 mg/dL Normal 0.52-1.04 [facility] Comment on above: Performed By: #### L AB15 ####Crabber: VELMA VALADEZ ([phone])[facility] ([facility])[address] [place] [address] [place] GLOMERULAR FILTRATION RATE ML/MIN/1.73 SQ M.PREDICTED 57.0 mL/min/1.73m*2 Low >60.0 [facility] Comment on above: Result Comment: Calc ulation based on the Chronic Kidney Disease Epidemiology Collaboration (CKD-EPI) equation refit without adjustment for race Performed By: #### L AB15 ####Crabber: VELMA VALADEZ ([phone])[facility] ([facility])[address] [place] [address] Glucose [Mass/Vol] 116 mg/dL High 70-100 [facility] Comment on above: Performed By: #### L AB15 ####Crabber: VELMA VALADEZ ([id number])[facility] ([facility])[address] [place] [address] Potassium [Moles/Vol] 4.5 mmol/L Normal 3.5-5.1 [facility] Comment on above: Performed By: #### L AB15 ####Crabber: VELMA VALADEZ ([phone])[facility] ([facility])[address] [place] [address] [place] Sodium [Moles/Vol] 135 mmol/L Normal 135-145 [facility] Comment on above: Performed By: #### L AB15 ####Crabber: VELMA VALADEZ ([id number])[facility] ([facility])[address] [place] [address] [place] Urea nitrogen [Mass/Vol] 18 mg/dL High 7-17 [facility] Comment on above: Performed By: #### L AB15 ####Crabber: VELMA VALADEZ ([id number])[facility] ([facility])[address] [place] [address] Basic metabolic 1998 panelon 04-08-2024 Anion gap [Moles/Vol] 5 mmol/L 3 - 13 mmol/L [facility] Calcium [Mass/Vol] 8.9 mg/dL 8.4 - 10. 4 mg/dL [facility] Chloride [Moles/Vol] 113 mmol/L High 98 - 10 7 mmol/L [facility] CO2 [Moles/Vol] 17 mmol/L Low 22 - 30 mmol/L [facility] Creatinine [Mass/Vol] 0.98 mg/dL 0.52 - 1.04 mg/dL [facility] GFR/1.73 sq M.predicted (S/P/Bld) [Vol rate/Area] 57.0 mL/min Low - PINF [facility] Comment on above: Calculation based on the Chronic Kidney Disease Epidemiology Collaboration (CKD-EPI) equation refit without adjustment for race Glucose [Mass/Vol] 116 mg/dL High 70 - 100 mg/dL [facility] Interpretation and review of laboratory results Abnormal [facility] Potassium [Moles/Vol] 4.5 mmol/L 3.5 - 5.1 mmol/L [facility] Sodium [Moles/Vol] 135 mmol/L 135 - 145 mmol/L [facility] Urea nitrogen [Mass/Vol] 18 mg/dL High 7 - 17 mg/dL [facility] CBC W Auto Differential pane l (Bld)on 04-08-2024 Basophils (Bld) [#/Vol] 0.0 10*3/uL 0.0 - 0.2 10*3/uL [facility] Basophils/100 WBC (Bld) 0.5 % 0.0 - 2.0 % [facility] Eosinophils (Bld) [#/Vol] 0.1 10*3/uL 0.0 - 0.5 10*3/uL [facility] Eosinophils/100 WBC (Bld) 0.9 % 0.0 - 6.0 % [facility] Erythrocyte distribution width (RBC) [Ratio] 14.8 % 11.5 - 15.0 % [facility] Hematocrit (Bld) [Volume fraction] 27.0 % Low 35.0 - 47.0 % [facility] Hemoglobin (Bld) [Mass/Vol] 8.6 g/dL Low 11.7 - 16.0 g/dL [facility] Immature granulocytes (Bld) [#/Vol] 0.0 10*3/uL NINF - 0.1 10*3/uL [facility] [employer] Immature granulocytes/100 WBC (Bld) 0.4 % 0.0 - 2.0 % [facility] Interpretation and review of laboratory results Abnormal [facility] Lymphocytes (Bld) [#/Vol] 1.7 10*3/uL 1.0 - 4.3 10*3/uL [facility] Lymphocytes/100 WBC (Bld) 23.3 % 15.0 - 45.0 % [facility] MCH (RBC) [Entitic mass] 30.2 pg 26.0 - 34.0 pg [facility] MCHC (RBC) [Mass/Vol] 31.9 % 30.5 - 36.0 % [facility] MCV (RBC) [Entitic vol] 94.7 fL 77.0 - 99.0 fL [facility] Monocytes (Bld) [#/Vol] 0.8 10*3/uL 0.0 - 0.9 10*3/uL [facility] Monocytes/100 WBC (Bld) 10.2 % 5.0 - 13.0 % [facility] Neutrophils (Bld) [#/Vol] 4.8 10*3/uL 1.8 - 7.5 10*3/uL [facility] Neutrophils/100 WBC (Bld) 64.7 % 38.0 - 82.0 % [facility] Nucleated RBC/100 WBC (Bld) [Ratio] 0.0 % [facility] Platelet mean volume (Bld) [Entitic vol] 10.1 fL 9.0 - 12.7 fL [facility] Platelets (Bld) [#/Vol] 223 10*3/uL 140 - 440 10*3/uL [facility] RBC (Bld) [#/Vol] 2.85 10*6/uL Low 3.80 - 5.2 0 10*6/uL [facility] WBC (Bld) [#/Vol] 7.5 10*3/uL 3.6 - 10.7 10*3/uL [facility] CBC WITH AUTO DIFFERENTIALon 04-08-2024 Basophils (Bld) [#/Vol] 0.0 10*3/uL Normal 0.0-0.2 [facility] Comment on above: Performed By: #### L [id number] ####Crabber: VELMA VALADEZ ([phone])[facility])[address] [place] [address] Basophils/100 WBC (Bld) 0.5 % Normal 0.0-2.0 [facility] Comment on above: Performed By: #### L [id number] ####Crabber: VELMA VALADEZ ([phone])[facility])[address] [place] [address] Eosinophils (Bld) [#/Vol] 0.1 10*3/uL Normal 0.0-0.5 [facility] Comment on above: Performed By: #### L [id number] ####Crabber: VELMA VALADEZ ([phone])[facility])[address] [place] [address] Eosinophils/100 WBC (Bld) 0.9 % Normal 0.0-6.0 [facility] Comment on above: Performed By: #### L [id number] ####Crabber: VELMA VALADEZ ([phone])[facility])[address] [place] [address] Erythrocyte distribution width (RBC) [Ratio] 14.8 % Normal 11.5-15.0 [facility] Comment on above: Performed By: #### L [id number] ####Crabber: VELMA VALADEZ ([phone])[facility])[address] [place] [address] Hematocrit (Bld) [Volume fraction] 27.0 % Low 35.0-47.0 [facility] Comment on above: Performed By: #### L [id number] ####Crabber: VELMA VALADEZ ([phone])[facility])[address] [place] [address] Hemoglobin (Bld) [Mass/Vol] 8.6 g/dL Low 11.7-16.0 [facility] Comment on above: Performed By: #### L [id number] ####Crabber: VELMA VALADEZ ([phone])[facility] ([facility])[address] [place] [address] IMMATURE GRANS % 0.4 % Normal 0.0-2.0 [facility] Comment on above: Performed By: #### L [id number] ####Crabber: VELMA VALADEZ ([phone])[facility])[address] [place] [address] IMMATURE GRANS ABSOLUTE 0.0 10*3/uL Normal <0.1 [facility] Comment on above: Performed By: #### L [id number] ####Crabber: VELMA VALADEZ ([phone])[facility])[address] [place] [address] Lymphocytes (Bld) [#/Vol] 1.7 10*3/uL Normal 1.0-4.3 [facility] Comment on above: Performed By: #### L [id number] ####Crabber: VELMA VALADEZ ([phone])[facility])[address] [place] [address] Lymphocytes/100 WBC (Bld) 23.3 % Normal 15.0-45.0 [facility] Comment on above: Performed By: #### L [id number] ####Crabber: VELMA VALADEZ ([phone])[facility])[address] [place] [address] MCH (RBC) [Entitic mass] 30.2 pg Normal 26.0-34.0 [facility] Comment on above: Performed By: #### L [id number] ####Crabber: VELMA VALADEZ ([phone])[facility])[address] [place] [address] MCHC 31.9 % Normal 30.5-36.0 [facility] Comment on above: Performed By: #### L [id number] ####Crabber: VELMA VALADEZ ([phone])[facility])[address] [place] [address] MCV (RBC) [Entitic vol] 94.7 fL Normal 77.0-99.0 [facility] Comment on above: Performed By: #### L [id number] ####Crabber: VELMA VALADEZ ([id number])[facility] ([facility])[address] [place] [address] Monocytes (Bld) [#/Vol] 0.8 10*3/uL Normal 0.0-0.9 [facility] Comment on above: Performed By: #### L [id number] ####Crabber: VELMA VALADEZ ([phone])[facility] ([facility])[address] [place] [address] Monocytes/100 WBC (Bld) 10.2 % Normal 5.0-13.0 [facility] Comment on above: Performed By: #### L [id number] ####Crabber: VELMA VALADEZ ([phone])[facility] ([facility])[address] [place] [address] NEUTROPHILS ABSOLUTE 4.8 10*3/uL Normal 1.8-7.5 [facility] Comment on above: Performed By: #### L [id number] ####Crabber: VELMA VALADEZ ([phone])[facility] ([facility])[address] [place] [address] Neutrophils/100 WBC (Bld) 64.7 % Normal 38.0-82.0 [facility] Comment on above: Performed By: #### L [id number] ####Crabber: VELMA VALADEZ ([phone])[facility] ([facility])[address] [place] [address] NRBC 0.0 /100 WBCs Normal 0.0-2.0 [facility] Comment on above: Performed By: #### L [id number] ####Crabber: VELMA VALADEZ ([phone])[facility])[address] [place] [address] Platelet mean volume (Bld) [Entitic vol] 10.1 fL Normal 9.0-12.7 [facility] Comment on above: Performed By: #### L [id number] ####Crabber: VELMA VALADEZ ([phone])[facility] ([facility])[address] [place] [address] Platelets (Bld) [#/Vol] 223 10*3/uL Normal 140-440 [facility] Comment on above: Performed By: #### L [id number] ####Crabber: VELMA VALADEZ ([phone])[facility] ([facility])[address] [place] [address] RBC (Bld) [#/Vol] 2.85 10*6/uL Low 3.80-5.20 [facility] Comment on above: Performed By: #### L [id number] ####Crabber: VELMA VALADEZ ([phone])[facility] ([facility])[address] [place] [address] WBC (Bld) [#/Vol] 7.5 10*3/uL Normal 3.6-10.7 [facility] Comment on above: Performed By: #### L [id number] ####Crabber: VELMA VALADEZ ([phone])[facility] ([facility])[address] [place] [address] IDNon 04-08-2024 IDN Progressing Normal [facility] - Coagulationon 0 04-08-2024 PT Coag (Bld) [Time] 11.2 s 9.0 - 1 2.0 s [facility] No Panel Informationon 04-08 [facility] PROTHROMBIN TIMEon INR Coag (PPP) [Relative time] 1.0 {INR} Normal 0.9-1.1 [facility] Comment on above: Result Comment: Timothy [...] Myocardial Infarction Performed By: #### L [id number], [id number] ####Crabber: VELMA VALADEZ ([phone])[facility] ([facility])[address] [place] [address] PT Coag (PPP) [Time] 11.2 s Normal 9.0-12.0 [facility] [employer] [facility] Comment on above: Performed By: #### L [id number], [id number] ####Crabber: VELMA VALADEZ ([phone])[facility] ([facility])[address] [place] [address] PT Coag (Bld) [Time]on 04-08 INR Coag (PPP) [Relative time] 1.0 {INR} 0.9 - 1.1 [facility] Comment on above: Recommended Anticoag ulant [...] Interpretation and review of laboratory results Normal [facility] Progress Noteon 04-08-2024 Progress Note Normal [facility] Progress Note Normal [facility] aPTT Coag (Bld) [Time]on aPTT Coag (PPP) [Time] 51.5 s High 20.0 - 30.5 s [facility] Interpretation and review of laboratory results Abnormal [facility] NOTE: The therapeuti c time for Heparin anticoagulation, based on Xa activity inhibition, is an APTT of 46-80 seconds. [facility] aPTT Coag (PPP) [Time] 59.8 s High 20.0 - 30.5 s [facility] Interpretation and review of laboratory results Abnormal [facility] NOTE: The therapeuti c time for Heparin anticoagulation, based on Xa activity inhibition, is an APTT of 46-80 seconds. [facility] aPTT Coag (PPP) [Time] 41.4 s High 20.0 - 30.5 s [facility] Interpretation and review of laboratory results Abnormal [facility] NOTE: The therapeuti c time for Heparin anticoagulation, based on Xa activity inhibition, is an APTT of 46-80 seconds. [facility] APTTon 04-07-2024 aPTT Coag (Bld) [Time] 54.7 s High 20.0-30.5 [facility] Comment on above: Result Comment: BUBBA Garcia COMMENTS:NOTE: The therapeutic time for Heparin anticoagulation, based on Xa activity inhibition, is an APTT of 46-80 seconds. Performed By: #### L [id number] ####Crabber: VELMA VLAADEZ ([phone])[facility])[address] [place] [address] aPTT Coag (Bld) [Time] 77.7 s High 20.0-30.5 [facility] Comment on above: Result Comment: BUBBA Garcia COMMENTS:NOTE: The therapeutic time for Heparin anticoagulation, based on Xa activity inhibition, is an APTT of 46-80 seconds. Performed By: #### L [id number], [id number] ####Crabber: VELMA VALADEZ ([phone])[facility])[address] [place] [address] BASIC METABOLIC PANELon 03-19 Anion gap [Moles/Vol] 4 mmol/L Normal 3-13 [facility] Comment on above: Performed By: #### L [id number] ####Crabber: VELMA VALADEZ ([phone])[facility] ([facility])[address] [place] [address] Calcium [Mass/Vol] 8.8 mg/dL Normal 8.4-10.4 [facility] Comment on above: Performed By: #### L [id number] ####Crabber: VELMA [id number])[facility])[address] [place] [address] Chloride [Moles/Vol] 115 mmol/L High 98-107 [facility] Comment on above: Performed By: #### L [id number] ####Crabber: VELMA [id number])[facility] ([facility] [place] [address] [place] CO2 [Moles/Vol] 17 mmol/L Low 22-30 [facility] Comment on above: Performed By: #### L [id number] ####Crabber: VELMA VALADEZ ([phone])[facility] ([facility])[address] [place] [address] Creatinine [Mass/Vol] 0.90 mg/dL Normal 0.52-1.04 [facility] Comment on above: Performed By: #### L [id number] ####Crabber: VELMA VALADEZ ([phone])[facility])[address] [place] [address] GLOMERULAR FILTRATION RATE ML/MIN/1.73 SQ M.PREDICTED 63.2 mL/min/1.73m*2 Normal >60.0 [facility] Comment on above: Result Comment: Calc ulation based on the Chronic Kidney Disease Epidemiology Collaboration (CKD-EPI) equation refit without adjustment for race Performed By: #### L [id number] ####Crabber: VELMA VALADEZ ([phone])[facility] ([facility])[address] [place] [address] Glucose [Mass/Vol] 139 mg/dL High 70-100 [facility] Comment on above: Performed By: #### L [id number] ####Crabber: VLEMA VALADEZ ([phone])[facility] ([facility])[address] [place] [address] [place] Potassium [Moles/Vol] 4.7 mmol/L Normal 3.5-5.1 [facility] Comment on above: Performed By: #### L [id number] ####Crabber: VELMA VALADEZ ([phone])[facility])[address] [place] [address] Sodium [Moles/Vol] 136 mmol/L Normal 135-145 [facility] Comment on above: Performed By: #### L [id number] ####Crabber: VELMA VALADEZ ([phone])[facility] ([facility])[address] [place] [address] Urea nitrogen [Mass/Vol] 16 mg/dL Normal 7-17 [facility] Comment on above: Performed By: #### L [id number] ####Crabber: VELMA VALADEZ ([phone])[facility] ([facility])[address] [place] [address] Basic metabolic 1998 panelon 04-07-2024 Anion gap [Moles/Vol] 4 mmol/L 3 - 13 mmol/L [facility] Calcium [Mass/Vol] 8.8 mg/dL 8.4 - 10. 4 mg/dL [facility] Chloride [Moles/Vol] 115 mmol/L High 98 - 10 7 mmol/L [facility] CO2 [Moles/Vol] 17 mmol/L Low 22 - 30 mmol/L [facility] Creatinine [Mass/Vol] 0.90 mg/dL 0.52 - 1.04 mg/dL [facility] GFR/1.73 sq M.predicted (S/P/Bld) [Vol rate/Area] 63.2 mL/min - PINF [facility] Comment on above: Calculation based on the Chronic Kidney Disease Epidemiology Collaboration (CKD-EPI) equation refit without adjustment for race Glucose [Mass/Vol] 139 mg/dL High 70 - 100 mg/dL [facility] Interpretation and review of laboratory results Abnormal [facility] Potassium [Moles/Vol] 4.7 mmol/L 3.5 - 5.1 mmol/L [facility] Sodium [Moles/Vol] 136 mmol/L 135 - 145 mmol/L [facility] Urea nitrogen [Mass/Vol] 16 mg/dL 7 - 17 mg/dL [facility] CBC W Auto Differential pane l (Bld)on 04-07-2024 Basophils (Bld) [#/Vol] 0.0 10*3/uL 0.0 - 0.2 10*3/uL [facility] Basophils/100 WBC (Bld) 0.2 % 0.0 - 2.0 % [facility] Eosinophils (Bld) [#/Vol] 0.0 10*3/uL 0.0 - 0.5 10*3/uL [facility] Eosinophils/100 WBC (Bld) 0.0 % 0.0 - 6.0 % [facility] Erythrocyte distribution width (RBC) [Ratio] 14.3 % 11.5 - 15.0 % [facility] Hematocrit (Bld) [Volume fraction] 27.0 % Low 35.0 - 47.0 % [facility] Hemoglobin (Bld) [Mass/Vol] 8.6 g/dL Low 11.7 - 16.0 g/dL [facility] Immature granulocytes (Bld) [#/Vol] 0.0 10*3/uL NINF - 0.1 10*3/uL [facility] Immature granulocytes/100 WBC (Bld) 0.5 % 0.0 - 2.0 % [facility] Interpretation and review of laboratory results Abnormal [facility] Lymphocytes (Bld) [#/Vol] 0.8 10*3/uL Low 1.0 - 4.3 10*3/uL [facility] Lymphocytes/100 WBC (Bld) 19.2 % 15.0 - 45.0 % [facility] MCH (RBC) [Entitic mass] 30.1 pg 26.0 - 34.0 pg [facility] MCHC (RBC) [Mass/Vol] 31.9 % 30.5 - 36.0 % [facility] MCV (RBC) [Entitic vol] 94.4 fL 77.0 - 99.0 fL [facility] Monocytes (Bld) [#/Vol] 0.3 10*3/uL 0.0 - 0.9 10*3/uL [facility] Monocytes/100 WBC (Bld) 7.5 % 5.0 - 13.0 % [facility] Neutrophils (Bld) [#/Vol] 2.9 10*3/uL 1.8 - 7.5 10*3/uL [facility] Neutrophils/100 WBC (Bld) 72.6 % 38.0 - 82.0 % [facility] Nucleated RBC/100 WBC (Bld) [Ratio] 0.0 % [facility] Platelet mean volume (Bld) [Entitic vol] 10.5 fL 9.0 - 12.7 fL [facility] Platelets (Bld) [#/Vol] 202 10*3/uL 140 - 440 10*3/uL [facility] RBC (Bld) [#/Vol] 2.86 10*6/uL Low 3.80 - 5.2 0 10*6/uL [facility] WBC (Bld) [#/Vol] 4.0 10*3/uL 3.6 - 10.7 10*3/uL [facility] CBC WITH AUTO DIFFERENTIALon 04-07-2024 Basophils (Bld) [#/Vol] 0.0 10*3/uL Normal 0.0-0.2 [facility] Comment on above: Performed By: #### L [id number] ####Crabber: VELMA VALADEZ ([phone])[facility])[address] [place] [address] Basophils/100 WBC (Bld) 0.2 % Normal 0.0-2.0 [facility] Comment on above: Performed By: #### L [id number] ####Crabber: VELMA VALADEZ ([phone])[facility])[address] [place] [address] Eosinophils (Bld) [#/Vol] 0.0 10*3/uL Normal 0.0-0.5 [facility] Comment on above: Performed By: #### L [id number] ####Crabber: VELMA VALADEZ ([phone])[facility])[address] [place] [address] Eosinophils/100 WBC (Bld) 0.0 % Normal 0.0-6.0 [facility] Comment on above: Performed By: #### L [id number] ####Crabber: VELMA VALADEZ ([phone])[facility])[address] [place] [address] Erythrocyte distribution width (RBC) [Ratio] 14.3 % Normal 11.5-15.0 [facility] Comment on above: Performed By: #### L [id number] ####Crabber: VELMA [id number])[facility])[address] [place] [address] Hematocrit (Bld) [Volume fraction] 27.0 % Low 35.0-47.0 [facility] Comment on above: Performed By: #### L [id number] ####Crabber: VELMA [id number])[facility])[address] [place] [address] Hemoglobin (Bld) [Mass/Vol] 8.6 g/dL Low 11.7-16.0 [facility] Comment on above: Performed By: #### L [id number] ####Crabber: VELMA VALADEZ ([phone])[facility])[address] [place] [address] IMMATURE GRANS % 0.5 % Normal 0.0-2.0 [facility] Comment on above: Performed By: #### L [id number] ####Crabber: VELMA VALADEZ ([phone])[facility])[address] [place] [address] IMMATURE GRANS ABSOLUTE 0.0 10*3/uL Normal <0.1 [facility] Comment on above: Performed By: #### L [id number] ####Crabber: VELMA VALADEZ ([phone])[facility])[address] [place] [address] Lymphocytes (Bld) [#/Vol] 0.8 10*3/uL Low 1.0-4.3 [facility] Comment on above: Performed By: #### L [id number] ####Crabber: VELMA VALADEZ ([phone])[address] Lymphocytes/100 WBC (Bld) 19.2 % Normal 15.0-45.0 [facility] Comment on above: Performed By: #### L [id number] ####Crabber: VELMA VALADEZ ([phone])[facility])[address] [place] [address] MCH (RBC) [Entitic mass] 30.1 pg Normal 26.0-34.0 [facility] Comment on above: Performed By: #### L [id number] ####Crabber: VELMA VALADEZ ([phone])[facility])[address] [place] [address] MCHC 31.9 % Normal 30.5-36.0 [facility] Comment on above: Performed By: #### L [id number] ####Crabber: VELMA VALADEZ ([phone])[facility])[address] [place] [address] MCV (RBC) [Entitic vol] 94.4 fL Normal 77.0-99.0 [facility] Comment on above: Performed By: #### L [id number] ####Crabber: VELMA VALADEZ ([phone])[facility] ([facility])[address] [place] [address] Monocytes (Bld) [#/Vol] 0.3 10*3/uL Normal 0.0-0.9 [facility] Comment on above: Performed By: #### L [id number] ####Crabber: VELMA VALADEZ ([phone])[facility])[address] [place] [address] Monocytes/100 WBC (Bld) 7.5 % Normal 5.0-13.0 [facility] Comment on above: Performed By: #### L [id number] ####Crabber: VELMA VALADEZ ([phone])[facility])[address] [place] [address] NEUTROPHILS ABSOLUTE 2.9 10*3/uL Normal 1.8-7.5 [facility] Comment on above: Performed By: #### L [id number] ####Crabber: VELMA VALADEZ ([phone])[facility])[address] [place] [address] Neutrophils/100 WBC (Bld) 72.6 % Normal 38.0-82.0 [facility] Comment on above: Performed By: #### L [id number] ####Crabber: VELMA VALADEZ ([phone])[facility])[address] [place] [address] NRBC 0.0 /100 WBCs Normal 0.0-2.0 [facility] Comment on above: Performed By: #### L [id number] ####Crabber: VELMA VALADEZ ([phone])[facility] ([facility])[address] [place] [address] Platelet mean volume (Bld) [Entitic vol] 10.5 fL Normal 9.0-12.7 [facility] Comment on above: Performed By: #### L [id number] ####Crabber: VELMA VALADEZ ([phone])[facility] ([facility])[address] [place] [address] Platelets (Bld) [#/Vol] 202 10*3/uL Normal 140-440 [facility] Comment on above: Performed By: #### L [id number] ####Crabber: VELMA VALADEZ ([phone])[facility] ([facility])[address] [place] [address] RBC (Bld) [#/Vol] 2.86 10*6/uL Low 3.80-5.20 [facility] Comment on above: Performed By: #### L [id number] ####Crabber: VELMA VALADEZ ([phone])[facility])[address] [place] [address] WBC (Bld) [#/Vol] 4.0 10*3/uL Normal 3.6-10.7 [facility] Comment on above: Performed By: #### L [id number] ####Crabber: VELMA VALADEZ ([phone])[facility] ([facility])[address] [place] [address] IDNon 04-07-2024 IDN Normal [facility] Laboratory - Coagulationon 0 04-07-2024 PT Coag (Bld) [Time] 11.1 s 9.0 - 1 2.0 s [facility] No Panel Informationon 04-07 [facility] Nursing Noteon 04-07-2024 Nursing Note NO changes to hepari n infusion at this time. Normal [facility] PROTHROMBIN TIMEon INR Coag (PPP) [Relative time] 1.0 {INR} Normal 0.9-1.1 [facility] Comment on above: Result Comment: Timothy [...] Myocardial Infarction Performed By: #### [place] [id number], [id number] ####Crabber: VELMA VALADEZ ([id number])[address] PT Coag (PPP) [Time] 11.1 s Normal 9.0-12.0 [facility] Comment on above: Performed By: #### [place] [id number], [id number] ####Crabber: VELMA VALADEZ ([phone])[facility] [employer] PT Coag (Bld) [Time]on 04-07 INR Coag (PPP) [Relative time] 1.0 {INR} 0.9 - 1.1 [facility] Comment on above: Recommended Anticoag ulant [...] Interpretation and review of laboratory results Normal [facility] Progress Noteon 04-07-2024 Progress Note Normal [facility] Progress Note Normal [facility] Progress Note Normal [facility] aPTT Coag (Bld) [Time]on aPTT Coag (PPP) [Time] 54.7 s High 20.0 - 30.5 s [facility] Interpretation and review of laboratory results Abnormal [facility] NOTE: The therapeuti c time for Heparin anticoagulation, based on Xa activity inhibition, is an APTT of 46-80 seconds. [facility] aPTT Coag (PPP) [Time] 77.7 s High 20.0 - 30.5 s [facility] Interpretation and review of laboratory results Abnormal [facility] NOTE: The therapeuti c time for Heparin anticoagulation, based on Xa activity inhibition, is an APTT of 46-80 seconds. [facility] [id number] 04-06-2024 [id number] Normal [facility] APTTon 04-06-2024 aPTT Coag (Bld) [Time] 43.3 s High 20.0-30.5 [facility] Comment on above: Result Comment: BUBBA Garcia COMMENTS:NOTE: The therapeutic time for Heparin anticoagulation, based on Xa activity inhibition, is an APTT of 46-80 seconds. Performed By: #### L [id number] ####Crabber: VELMA VALADEZ ([phone])[facility] ([facility])[address] [place] [address] aPTT Coag (Bld) [Time] 97.6 s High 20.0-30.5 [facility] Comment on above: Result Comment: BUBBA Garcia COMMENTS:NOTE: The therapeutic time for Heparin anticoagulation, based on Xa activity inhibition, is an APTT of 46-80 seconds. Performed By: #### L [id number] ####Crabber: VELMA VALADEZ ([phone])[facility] ([facility])[address] [place] [address] Anesthesia Noteon 04-06-2024 Anesthesia Note Normal [facility] Anesthesia Note Normal [facility] BASIC METABOLIC PANELon 03-19 Anion gap [Moles/Vol] 4 mmol/L Normal 3-13 [facility] Comment on above: Performed By: #### L [id number] ####Crabber: VELMA VALADEZ ([phone])[facility] ([facility])[address] [place] [address] Calcium [Mass/Vol] 8.9 mg/dL Normal 8.4-10.4 [facility] Comment on above: Performed By: #### L [id number] ####Crabber: VELMA VALADEZ ([phone])[facility] ([facility])[address] [place] [address] Chloride [Moles/Vol] 114 mmol/L High 98-107 [facility] Comment on above: Performed By: #### L [id number] ####Crabber: VELMA VALADEZ ([phone])[facility])[address] [place] [address] CO2 [Moles/Vol] 18 mmol/L Low 22-30 [facility] Comment on above: Performed By: #### L AB15 ####Crabber: VELMA VALADEZ ([id number])[facility])[address] [place] [address] Creatinine [Mass/Vol] 0.96 mg/dL Normal 0.52-1.04 [facility] Comment on above: Performed By: #### L AB15 ####Crabber: VELMA VALADEZ ([phone])[facility])[address] [place] [address] GLOMERULAR FILTRATION RATE ML/MIN/1.73 SQ M.PREDICTED 58.5 mL/min/1.73m*2 Low >60.0 [facility] Comment on above: Result Comment: Calc ulation based on the Chronic Kidney Disease Epidemiology Collaboration (CKD-EPI) equation refit without adjustment for race Performed By: #### L AB15 ####Crabber: VELMA VALADEZ ([phone])[facility])[address] [place] [address] Glucose [Mass/Vol] 97 mg/dL Normal 70-100 [facility] Comment on above: Performed By: #### L AB15 ####Crabber: VELMA VALADEZ ([phone])[facility])[address] [place] [address] Potassium [Moles/Vol] 4.6 mmol/L Normal 3.5-5.1 [facility] Comment on above: Performed By: #### L [id number] ####Crabber: VELMA VALADEZ ([phone])[facility] ([facility])[address] [place] [address] Sodium [Moles/Vol] 135 mmol/L Normal 135-145 [facility] Comment on above: Performed By: #### L AB15 ####Crabber: VELMA VALADEZ ([phone])[facility] ([facility])[address] [place] [address] Urea nitrogen [Mass/Vol] 17 mg/dL Normal 7-17 [facility] Comment on above: Performed By: #### L AB15 ####Crabber: VELMA VALADEZ ([id number])[facility] ([facility])[address] [place] [address] BLOOD TYPE AND SCREEN GELon 04-06-2024 ABO GROUPING AB Normal [facility] Comment on above: Performed By: #### L [id number] ####Crabber: VELMA VALADEZ ([phone])[facility] ([facility])[address] [place] [address] RH TYPE IN BLOOD Positive Normal [facility] Comment on above: Performed By: #### L [id number] ####Crabber: VELMA VALADEZ ([phone])[facility] ([facility])[address] [place] [address] Basic metabolic 1998 panelon 04-06-2024 Anion gap [Moles/Vol] 4 mmol/L 3 - 13 mmol/L [facility] Calcium [Mass/Vol] 8.9 mg/dL 8.4 - 10. 4 mg/dL [facility] Chloride [Moles/Vol] 114 mmol/L High 98 - 10 7 mmol/L [facility] CO2 [Moles/Vol] 18 mmol/L Low 22 - 30 mmol/L [facility] Creatinine [Mass/Vol] 0.96 mg/dL 0.52 - 1.04 mg/dL [facility] GFR/1.73 sq M.predicted (S/P/Bld) [Vol rate/Area] 58.5 mL/min Low - PINF [facility] Comment on above: Calculation based on the Chronic Kidney Disease Epidemiology Collaboration (CKD-EPI) equation refit without adjustment for race Glucose [Mass/Vol] 97 mg/dL 70 - 100 mg/dL [facility] Interpretation and review of laboratory results Abnormal [facility] Potassium [Moles/Vol] 4.6 mmol/L 3.5 - 5.1 mmol/L [facility] Sodium [Moles/Vol] 135 mmol/L 135 - 145 mmol/L [facility] Urea nitrogen [Mass/Vol] 17 mg/dL 7 - 17 mg/dL [facility] Blood type and Crossmatch pa juan (Bld)on 04-06-2024 ABO group Nom (Bld) AB [facility] Blood group antibody screen GEL Ql Negative [facility] D Ag Ql (RBC) Positive [facility] CARECOORDon 04-06-2024 CARECOORD Normal [facility] Normal [facility] CBC W Auto Differential pane l (Bld)on 04-06-2024 Basophils (Bld) [#/Vol] 0.1 10*3/uL 0.0 - 0.2 10*3/uL [facility] Basophils/100 WBC (Bld) 1.1 % 0.0 - 2.0 % [facility] Eosinophils (Bld) [#/Vol] 0.1 10*3/uL 0.0 - 0.5 10*3/uL [facility] Eosinophils/100 WBC (Bld) 2.7 % 0.0 - 6.0 % [facility] Erythrocyte distribution width (RBC) [Ratio] 14.3 % 11.5 - 15.0 % [facility] Hematocrit (Bld) [Volume fraction] 29.8 % Low 35.0 - 47.0 % [facility] Hemoglobin (Bld) [Mass/Vol] 9.7 g/dL Low 11.7 - 16.0 g/dL [facility] Immature granulocytes (Bld) [#/Vol] 0.0 10*3/uL NINF - 0.1 10*3/uL [facility] Immature granulocytes/100 WBC (Bld) 0.2 % 0.0 - 2.0 % [facility] Interpretation and review of laboratory results Abnormal [facility] Lymphocytes (Bld) [#/Vol] 1.5 10*3/uL 1.0 - 4.3 10*3/uL [facility] Lymphocytes/100 WBC (Bld) 33.0 % 15.0 - 45.0 % [facility] MCH (RBC) [Entitic mass] 30.3 pg 26.0 - 34.0 pg [facility] MCHC (RBC) [Mass/Vol] 32.6 % 30.5 - 36.0 % [facility] MCV (RBC) [Entitic vol] 93.1 fL 77.0 - 99.0 fL [facility] Monocytes (Bld) [#/Vol] 0.5 10*3/uL 0.0 - 0.9 10*3/uL [facility] Monocytes/100 WBC (Bld) 10.5 % 5.0 - 13.0 % [facility] Neutrophils (Bld) [#/Vol] 2.4 10*3/uL 1.8 - 7.5 10*3/uL [facility] Neutrophils/100 WBC (Bld) 52.5 % 38.0 - 82.0 % [facility] Nucleated RBC/100 WBC (Bld) [Ratio] 0.0 % [facility] Platelet mean volume (Bld) [Entitic vol] 10.4 fL 9.0 - 12.7 fL [facility] Platelets (Bld) [#/Vol] 207 10*3/uL 140 - 440 10*3/uL [facility] RBC (Bld) [#/Vol] 3.20 10*6/uL Low 3.80 - 5.2 0 10*6/uL [facility] WBC (Bld) [#/Vol] 4.5 10*3/uL 3.6 - 10.7 10*3/uL [facility] CBC WITH AUTO DIFFERENTIALon 04-06-2024 Basophils (Bld) [#/Vol] 0.1 10*3/uL Normal 0.0-0.2 [facility] Comment on above: Performed By: #### L [id number] ####Crabber: VELMA VALADEZ ([id number])[address] Basophils/100 WBC (Bld) 1.1 % Normal 0.0-2.0 [facility] Comment on above: Performed By: #### L [id number] ####Crabber: VELMA VALADEZ ([id number])[facility] Eosinophils (Bld) [#/Vol] 0.1 10*3/uL Normal 0.0-0.5 [facility] Comment on above: Performed By: #### L [id number] ####Crabber: VELMA VALADEZ ([phone])[facility])[address] [place] [address] Eosinophils/100 WBC (Bld) 2.7 % Normal 0.0-6.0 [facility] Comment on above: Performed By: #### L [id number] ####Crabber: VELMA VALADEZ ([id number])[address] Erythrocyte distribution width (RBC) [Ratio] 14.3 % Normal 11.5-15.0 [facility] Comment on above: Performed By: #### L [id number] ####Crabber: VELMA VALADEZ ([id number])[facility])[address] [place] [address] Hematocrit (Bld) [Volume fraction] 29.8 % Low 35.0-47.0 [facility] Comment on above: Performed By: #### L [id number] ####Crabber: VELMA VALADEZ ([id number])[address] Hemoglobin (Bld) [Mass/Vol] 9.7 g/dL Low 11.7-16.0 [facility] Comment on above: Performed By: #### L [id number] ####Crabber: VELMA VALADEZ ([id number])[facility])[address] [place] [address] IMMATURE GRANS % 0.2 % Normal 0.0-2.0 [facility] Comment on above: Performed By: #### L [id number] ####Crabber: VELMA VALADEZ ([phone])[address] IMMATURE GRANS ABSOLUTE 0.0 10*3/uL Normal <0.1 [facility] Comment on above: Performed By: #### L [id number] ####Crabber: VELMA VALADEZ ([id number])[facility])[address] [place] [address] Lymphocytes (Bld) [#/Vol] 1.5 10*3/uL Normal 1.0-4.3 [facility] Comment on above: Performed By: #### L [id number] ####Crabber: VELMA VALADEZ ([phone])[facility])[address] [place] [address] Lymphocytes/100 WBC (Bld) 33.0 % Normal 15.0-45.0 [facility] Comment on above: Performed By: #### L [id number] ####Crabber: VELMA VALADEZ ([id number])[facility])[address] [place] [address] MCH (RBC) [Entitic mass] 30.3 pg Normal 26.0-34.0 [facility] Comment on above: Performed By: #### L [id number] ####Crabber: VELMA VALADEZ ([phone])[facility])[address] [place] [address] MCHC 32.6 % Normal 30.5-36.0 [facility] Comment on above: Performed By: #### L [id number] ####Crabber: VELMA VALADEZ ([id number])[facility])[address] [place] [address] MCV (RBC) [Entitic vol] 93.1 fL Normal 77.0-99.0 [facility] Comment on above: Performed By: #### L [id number] ####Crabber: VELMA VALADEZ ([id number])[facility])[address] [place] [address] Monocytes (Bld) [#/Vol] 0.5 10*3/uL Normal 0.0-0.9 [facility] Comment on above: Performed By: #### L [id number] ####Crabber: VELMA VALADEZ ([id number])[facility] ([facility])[address] [place] [address] Monocytes/100 WBC (Bld) 10.5 % Normal 5.0-13.0 [facility] Comment on above: Performed By: #### L [id number] ####Crabber: VELMA VALADEZ ([phone])[facility] ([facility])[address] [place] [address] NEUTROPHILS ABSOLUTE 2.4 10*3/uL Normal 1.8-7.5 [facility] Comment on above: Performed By: #### L [id number] ####Crabber: VELMA VALADEZ ([id number])[facility] ([facility])[address] [place] [address] Neutrophils/100 WBC (Bld) 52.5 % Normal 38.0-82.0 [facility] Comment on above: Performed By: #### L [id number] ####Crabber: VELMA VALADEZ ([phone])[facility] ([facility])[address] [place] [address] NRBC 0.0 /100 WBCs Normal 0.0-2.0 [facility] Comment on above: Performed By: #### L [id number] ####Crabber: VELMA VALADEZ ([id number])[facility] ([facility])[address] [place] [address] Platelet mean volume (Bld) [Entitic vol] 10.4 fL Normal 9.0-12.7 [facility] Comment on above: Performed By: #### L [id number] ####Crabber: VELMA VALADEZ ([phone])[facility] ([facility])[address] [place] [address] [place] Platelets (Bld) [#/Vol] 207 10*3/uL Normal 140-440 [facility] Comment on above: Performed By: #### L [id number] ####Crabber: VELMA VALADEZ ([phone])[facility] ([facility])[address] [place] [address] RBC (Bld) [#/Vol] 3.20 10*6/uL Low 3.80-5.20 [facility] Comment on above: Performed By: #### L [id number] ####Crabber: VELMA VALADEZ ([phone])[facility] ([facility])[address] [place] [address] WBC (Bld) [#/Vol] 4.5 10*3/uL Normal 3.6-10.7 [facility] Comment on above: Performed By: #### L [id number] ####Crabber: VELMA VALADEZ ([phone])[facility] ([facility])[address] [place] [address] No Panel Informationon 04-06 There is no interpretation needed for this exam. IMAGING Nursing Noteon 04-06-2024 Nursing Note Patient report rader d to 4N RN and denies any further questions. Patient resting comfortably and no signs of distress. Per resident patient to lay flat for 2 hours and restart heparin GTT at 1215. Transport notified. Normal [facility] Op Noteon 04-06-2024 Op Note Normal [facility] Progress Noteon 04-06-2024 Progress Note Normal [facility] Progress Note Normal [facility] Progress Note Normal [facility] aPTT Coag (Bld) [Time]on aPTT Coag (PPP) [Time] 43.3 s High 20.0 - 30.5 s [facility] Interpretation and review of laboratory results Abnormal [facility] NOTE: The therapeuti c time for Heparin anticoagulation, based on Xa activity inhibition, is an APTT of 46-80 seconds. [facility] aPTT Coag (PPP) [Time] 97.6 s High 20.0 - 30.5 s [facility] Interpretation and review of laboratory results Abnormal [facility] NOTE: The therapeuti c time for Heparin anticoagulation, based on Xa activity inhibition, is an APTT of 46-80 seconds. [facility] 36on 04-05-2024 36 Surgery: Inpatient R LE venous mechanical thrombectomy Date of surgery: 04/06/24 Pre-testing: inpatient CPT codes: 51636 ICD 10: I82.401 Post-op or OV: Adriane to schedule Reps: Selvin Elaine) notified 04/05/24 Normal [facility] APTTon 04-05-2024 aPTT Coag (Bld) [Time] 76.6 s High 20.0-30.5 [facility] Comment on above: Result Comment: BUBBA Garcia COMMENTS:NOTE: The therapeutic time for Heparin anticoagulation, based on Xa activity inhibition, is an APTT of 46-80 seconds. Performed By: #### L [id number], [id number] ####Crabber: VELMA VALADEZ ([phone])[address] aPTT Coag (Bld) [Time] 69.9 s High 20.0-30.5 [facility] Comment on above: Result Comment: BUBBA Garcia COMMENTS:NOTE: The therapeutic time for Heparin anticoagulation, based on Xa activity inhibition, is an APTT of 46-80 seconds. Performed By: #### L [id number] ####Crabber: VELMA VALADEZ ([id number])[address] aPTT Coag (Bld) [Time] 88.8 s High 20.0-30.5 [facility] Comment on above: Result Comment: BUBBA Garcia COMMENTS:NOTE: The therapeutic time for Heparin anticoagulation, based on Xa activity inhibition, is an APTT of 46-80 seconds. Performed By: #### L [id number], [id number] ####Crabber: VELMA VALADEZ ([id number])[address] aPTT Coag (Bld) [Time] 109.7 s High 20.0-30.5 [facility] Comment on above: Result Comment: BUBBA Garcia COMMENTS:NOTE: The therapeutic time for Heparin anticoagulation, based on Xa activity inhibition, is an APTT of 46-80 seconds. Performed By: #### L [id number] ####Crabber: VELMA VALADEZ ([id number])[facility] ([facility])[address] [place] [address] BASIC METABOLIC PANELon 03-18 Anion gap [Moles/Vol] 3 mmol/L Normal 3-13 [facility] Comment on above: Performed By: #### L [id number] ####Crabber: VELMA VALADEZ ([id number])[facility] ([facility])[address] [place] [address] Calcium [Mass/Vol] 8.7 mg/dL Normal 8.4-10.4 [facility] Comment on above: Performed By: #### L [id number] ####Crabber: VELMA VALADEZ ([id number])[facility] ([facility])[address] [place] [address] Chloride [Moles/Vol] 113 mmol/L High 98-107 [facility] Comment on above: Performed By: #### L [id number] ####Crabber: VELMA VALADEZ ([phone])[facility] ([facility])[address] [place] [address] [place] CO2 [Moles/Vol] 17 mmol/L Low 22-30 [facility] Comment on above: Performed By: #### L [id number] ####Crabber: VELMA VALADEZ ([phone])[facility] ([facility])[address] [place] [address] Creatinine [Mass/Vol] 1.12 mg/dL High 0.52-1.04 [facility] Comment on above: Performed By: #### L [id number] ####Crabber: VELMA VALADEZ ([phone])[facility] ([facility])[address] [place] [address] [place] GLOMERULAR FILTRATION RATE ML/MIN/1.73 SQ M.PREDICTED 48.6 mL/min/1.73m*2 Low >60.0 [facility] Comment on above: Result Comment: Calc ulation based on the Chronic Kidney Disease Epidemiology Collaboration (CKD-EPI) equation refit without adjustment for race Performed By: #### L [id number] ####Crabber: VELMA VALADEZ ([id number])[facility] ([facility])[address] [place] [address] Glucose [Mass/Vol] 102 mg/dL High 70-100 [facility] Comment on above: Performed By: #### L AB15 ####Crabber: VELMA VALADEZ ([id number])[facility] ([facility])[address] [place] [address] Potassium [Moles/Vol] 4.8 mmol/L Normal 3.5-5.1 [facility] Comment on above: Performed By: #### L [id number] ####Crabber: VELMA VALADEZ ([phone])[facility] ([facility])[address] [place] [address] Sodium [Moles/Vol] 133 mmol/L Low 135-145 [facility] Comment on above: Performed By: #### L AB15 ####Crabber: VELMA VALADEZ ([phone])[facility] ([facility])[address] [place] [address] Urea nitrogen [Mass/Vol] 25 mg/dL High 7-17 [facility] Comment on above: Performed By: #### L [id number] ####Crabber: VELMA VALADEZ ([phone])[facility] ([facility])[address] [place] [address] Basic metabolic 1998 panelon 04-05-2024 Anion gap [Moles/Vol] 3 mmol/L 3 - 13 mmol/L [facility] Calcium [Mass/Vol] 8.7 mg/dL 8.4 - 10. 4 mg/dL [facility] Chloride [Moles/Vol] 113 mmol/L High 98 - 10 7 mmol/L [facility] CO2 [Moles/Vol] 17 mmol/L Low 22 - 30 mmol/L [facility] Creatinine [Mass/Vol] 1.12 mg/dL High 0.52 - 1.04 mg/dL [facility] GFR/1.73 sq M.predicted (S/P/Bld) [Vol rate/Area] 48.6 mL/min Low - PINF [facility] Comment on above: Calculation based on the Chronic Kidney Disease Epidemiology Collaboration (CKD-EPI) equation refit without adjustment for race Glucose [Mass/Vol] 102 mg/dL High 70 - 100 mg/dL [facility] Interpretation and review of laboratory results Abnormal [facility] Potassium [Moles/Vol] 4.8 mmol/L 3.5 - 5.1 mmol/L [facility] Sodium [Moles/Vol] 133 mmol/L Low 135 - 145 mmol/L [facility] Urea nitrogen [Mass/Vol] 25 mg/dL High 7 - 17 mg/dL [facility] CARECOORDon 04-05-2024 CARECOORD Normal [facility] CBC W Auto Differential pane l (Bld)on 04-05-2024 Basophils (Bld) [#/Vol] 0.1 10*3/uL 0.0 - 0.2 10*3/uL [facility] Basophils/100 WBC (Bld) 1.0 % 0.0 - 2.0 % [facility] Eosinophils (Bld) [#/Vol] 0.2 10*3/uL 0.0 - 0.5 10*3/uL [facility] Eosinophils/100 WBC (Bld) 2.9 % 0.0 - 6.0 % [facility] Erythrocyte distribution width (RBC) [Ratio] 14.4 % 11.5 - 15.0 % [facility] Hematocrit (Bld) [Volume fraction] 32.3 % Low 35.0 - 47.0 % [facility] Hemoglobin (Bld) [Mass/Vol] 10.6 g/dL Low 11.7 - 16.0 g/dL [facility] Immature granulocytes (Bld) [#/Vol] 0.0 10*3/uL NINF - 0.1 10*3/uL [facility] Immature granulocytes/100 WBC (Bld) 0.3 % 0.0 - 2.0 % [facility] Interpretation and review of laboratory results Abnormal [facility] Lymphocytes (Bld) [#/Vol] 1.7 10*3/uL 1.0 - 4.3 10*3/uL [facility] Lymphocytes/100 WBC (Bld) 27.5 % 15.0 - 45.0 % [facility] MCH (RBC) [Entitic mass] 30.7 pg 26.0 - 34.0 pg [facility] MCHC (RBC) [Mass/Vol] 32.8 % 30.5 - 36.0 % [facility] MCV (RBC) [Entitic vol] 93.6 fL 77.0 - 99.0 fL [facility] Monocytes (Bld) [#/Vol] 0.6 10*3/uL 0.0 - 0.9 10*3/uL [facility] Monocytes/100 WBC (Bld) 9.0 % 5.0 - 13.0 % [facility] Neutrophils (Bld) [#/Vol] 3.6 10*3/uL 1.8 - 7.5 10*3/uL [facility] Neutrophils/100 WBC (Bld) 59.3 % 38.0 - 82.0 % [facility] Nucleated RBC/100 WBC (Bld) [Ratio] 0.0 % [facility] Platelet mean volume (Bld) [Entitic vol] 10.1 fL 9.0 - 12.7 fL [facility] Platelets (Bld) [#/Vol] 204 10*3/uL 140 - 440 10*3/uL [facility] RBC (Bld) [#/Vol] 3.45 10*6/uL Low 3.80 - 5.2 0 10*6/uL [facility] WBC (Bld) [#/Vol] 6.1 10*3/uL 3.6 - 10.7 10*3/uL [facility] CBC WITH AUTO DIFFERENTIALon 04-05-2024 Basophils (Bld) [#/Vol] 0.1 10*3/uL Normal 0.0-0.2 [facility] Comment on above: Performed By: #### L [id number] ####Crabber: VELMA VALADEZ ([phone])[address] Basophils/100 WBC (Bld) 1.0 % Normal 0.0-2.0 [facility] Comment on above: Performed By: #### L [id number] ####Crabber: VELMA VALADEZ ([id number])[facility])[address] [place] [address] Eosinophils (Bld) [#/Vol] 0.2 10*3/uL Normal 0.0-0.5 [facility] Comment on above: Performed By: #### L [id number] ####Crabber: VELMA VALADEZ ([id number])[facility])[address] [place] [address] Eosinophils/100 WBC (Bld) 2.9 % Normal 0.0-6.0 [facility] Comment on above: Performed By: #### L [id number] ####Crabber: VELMA VALADEZ ([id number])[facility])[address] [place] [address] Erythrocyte distribution width (RBC) [Ratio] 14.4 % Normal 11.5-15.0 [facility] Comment on above: Performed By: #### L [id number] ####Crabber: VELMA VALADEZ ([id number])[address] Hematocrit (Bld) [Volume fraction] 32.3 % Low 35.0-47.0 [facility] Comment on above: Performed By: #### L [id number] ####Crabber: VELMA VALADEZ ([id number])[address] Hemoglobin (Bld) [Mass/Vol] 10.6 g/dL Low 11.7-16.0 [facility] Comment on above: Performed By: #### L [id number] ####Crabber: VELMA VALADEZ ([phone])[address] IMMATURE GRANS % 0.3 % Normal 0.0-2.0 [facility] Comment on above: Performed By: #### L [id number] ####Crabber: VELMA VALADEZ ([id number])[address] IMMATURE GRANS ABSOLUTE 0.0 10*3/uL Normal <0.1 [facility] Comment on above: Performed By: #### L [id number] ####Crabber: VELMA VALADEZ ([id number])[facility] ([facility])[address] [place] [address] Lymphocytes (Bld) [#/Vol] 1.7 10*3/uL Normal 1.0-4.3 [facility] Comment on above: Performed By: #### L [id number] ####Crabber: VELMA VALADEZ ([id number])[facility])[address] [place] [address] Lymphocytes/100 WBC (Bld) 27.5 % Normal 15.0-45.0 [facility] Comment on above: Performed By: #### L [id number] ####Crabber: VELMA VALADEZ ([phone])[facility])[address] [place] [address] MCH (RBC) [Entitic mass] 30.7 pg Normal 26.0-34.0 [facility] Comment on above: Performed By: #### L [id number] ####Crabber: VELMA VALADEZ ([id number])[facility])[address] [place] [address] MCHC 32.8 % Normal 30.5-36.0 [facility] Comment on above: Performed By: #### L [id number] ####Crabber: VELMA VALADEZ ([id number])[facility])[address] [place] [address] MCV (RBC) [Entitic vol] 93.6 fL Normal 77.0-99.0 [facility] Comment on above: Performed By: #### L [id number] ####Crabber: VELMA VALADEZ ([id number])[facility])[address] [place] [address] Monocytes (Bld) [#/Vol] 0.6 10*3/uL Normal 0.0-0.9 [facility] [facility] Comment on above: Performed By: #### L [id number] ####Crabber: VELMA VALADEZ ([phone])[facility])[address] [place] [address] Monocytes/100 WBC (Bld) 9.0 % Normal 5.0-13.0 [facility] Comment on above: Performed By: #### L [id number] ####Crabber: VELMA VALADEZ ([id number])[facility] ([facility])[address] [place] [address] NEUTROPHILS ABSOLUTE 3.6 10*3/uL Normal 1.8-7.5 [facility] Comment on above: Performed By: #### L [id number] ####Crabber: VELMA VALADEZ ([phone])[facility] ([facility])[address] [place] [address] Neutrophils/100 WBC (Bld) 59.3 % Normal 38.0-82.0 [facility] Comment on above: Performed By: #### L [id number] ####Crabber: VELMA VALADEZ ([phone])[facility] ([facility])[address] [place] [address] NRBC 0.0 /100 WBCs Normal 0.0-2.0 Formerly [facility] Comment on above: Performed By: #### L [id number] ####Crabber: VELMA VALADEZ ([phone])[facility] ([facility])[address] [place] [address] Platelet mean volume (Bld) [Entitic vol] 10.1 fL Normal 9.0-12.7 [facility] Comment on above: Performed By: #### L [id number] ####Crabber: VELMA VALADEZ ([phone])[facility] ([facility])[address] [place] [address] Platelets (Bld) [#/Vol] 204 10*3/uL Normal 140-440 [facility] Comment on above: Performed By: #### L [id number] ####Crabber: VELMA VALADEZ ([phone])[facility] ([facility])[address] [place] [address] RBC (Bld) [#/Vol] 3.45 10*6/uL Low 3.80-5.20 [facility] Comment on above: Performed By: #### L [id number] ####Crabber: VELMA VALADEZ ([phone])[facility])[address] [place] [address] WBC (Bld) [#/Vol] 6.1 10*3/uL Normal 3.6-10.7 [facility] Comment on above: Performed By: #### L [id number] ####Crabber: VELMA VALADEZ ([phone])[facility])[address] [place] [address] IDNon 04-05-2024 IDN The patient is Moderately Stable - Low risk of patient condition declining or worsening The patient's goals for the shift include met The clinical goals for the shift include met Normal [facility] Laboratory - Coagulationon 0 04-05-2024 PT Coag (Bld) [Time] 11.4 s 9.0 - 1 2.0 s [facility] PT Coag (Bld) [Time] 11.9 s 9.0 - 1 2.0 s [facility] No Panel Informationon 04-05 [facility] PROTHROMBIN TIMEon INR Coag (PPP) [Relative time] 1.0 {INR} Normal 0.9-1.1 [facility] Comment on above: Performed By: #### L [id number], [id number] ####Crabber: VELMA VALADEZ ([phone])[facility])[address] [place] [address] PT Coag (PPP) [Time] 11.4 s Normal 9.0-12.0 [facility] Comment on above: Performed By: #### L [id number], [id number] ####Crabber: VELMA VALADEZ ([phone])[facility])[address] [place] [address] INR Coag (PPP) [Relative time] 1.1 {INR} Normal 0.9-1.1 [facility] Comment on above: Result Comment: Timothy [...] Myocardial Infarction Performed By: #### Weston [id number], [id number] ####Crabber: VELMA VALADEZ ([phone])[facility] ([facility])[address] [place] [address] PT Coag (PPP) [Time] 11.9 s Normal 9.0-12.0 [facility] [employer] [facility] Comment on above: Performed By: #### Weston [id number], [id number] ####Crabber: VELMA VALADEZ ([phone])[facility] ([facility])[address] [place] [address] PT Coag (Bld) [Time]on 04-05 INR Coag (PPP) [Relative time] 1.0 {INR} 0.9 - 1.1 [facility] Interpretation and review of laboratory results Normal [facility] INR Coag (PPP) [Relative time] 1.1 {INR} 0.9 - 1.1 [facility] Comment on above: Recommended Anticoag ulant [...] Interpretation and review of laboratory results Normal [facility] Progress Noteon 04-05-2024 Progress Note Normal [facility] [employer] [facility] Progress Note Nutrition rescreen completed. Chart reviewed. Patient to be monitored and followed by the diet repair technician. FADI Harmon Normal [facility] Progress Note Normal [facility] Progress Note Normal [facility] aPTT Coag (Bld) [Time]on aPTT Coag (PPP) [Time] 76.6 s High 20.0 - 30.5 s [facility] Interpretation and review of laboratory results Abnormal [facility] NOTE: The therapeuti c time for Heparin anticoagulation, based on Xa activity inhibition, is an APTT of 46-80 seconds. [facility] aPTT Coag (PPP) [Time] 69.9 s High 20.0 - 30.5 s [facility] Interpretation and review of laboratory results Abnormal [facility] NOTE: The therapeuti c time for Heparin anticoagulation, based on Xa activity inhibition, is an APTT of 46-80 seconds. [facility] aPTT Coag (PPP) [Time] 88.8 s High 20.0 - 30.5 s [facility] Interpretation and review of laboratory results Abnormal [facility] NOTE: The therapeuti c time for Heparin anticoagulation, based on Xa activity inhibition, is an APTT of 46-80 seconds. [facility] aPTT Coag (Bld) [Time]Ordere d By: Juni Millard on 04-05-2024 aPTT Coag (PPP) [Time] 109.7 s High 20.0 - 30.5 s [facility] Interpretation and review of laboratory results Abnormal [facility] NOTE: The therapeuti c time for Heparin anticoagulation, based on Xa activity inhibition, is an APTT of 46-80 seconds. [facility] [id number] 04-04-2024 [id number] Normal [facility] [id number] Normal [facility] APTTon 04-04-2024 aPTT Coag (Bld) [Time] 81.8 s High 20.0-30.5 [facility] Comment on above: Result Comment: BUBBA Garcia COMMENTS:NOTE: The therapeutic time for Heparin anticoagulation, based on Xa activity inhibition, is an APTT of 46-80 seconds. Performed By: #### L [id number] ####Crabber: VELMA VALADEZ ([phone])[address] aPTT Coag (Bld) [Time] 81.4 s High 20.0-30.5 [facility] Comment on above: Result Comment: BUBBA Garcia COMMENTS:NOTE: The therapeutic time for Heparin anticoagulation, based on Xa activity inhibition, is an APTT of 46-80 seconds. Performed By: #### L [id number] ####Crabber: VELAM VALADEZ ([phone])[facility] ([facility])[address] [place] [address] aPTT Coag (Bld) [Time] 132.2 s Critically high 20.0-30. 5 [facility] Comment on above: Result Comment: BUBBA Garcia COMMENTS:NOTE: The therapeutic time for Heparin anticoagulation, based on Xa activity inhibition, is an APTT of 46-80 seconds. Performed By: #### L [id number] ####Crabber: VELMA VALADEZ ([phone])[facility] ([facility])[address] [place] [address] BASIC METABOLIC PANELon - Anion gap [Moles/Vol] 8 mmol/L Normal 3-13 [facility] Comment on above: Performed By: #### L [id number] ####Crabber: VELMA VALADEZ ([id number])[facility] ([facility])[address] [place] [address] Calcium [Mass/Vol] 9.3 mg/dL Normal 8.4-10.4 [facility] Comment on above: Performed By: #### L [id number] ####Crabber: VELMA VALADEZ ([phone])[facility] ([facility])[address] [place] [address] Chloride [Moles/Vol] 110 mmol/L High 98-107 [facility] Comment on above: Performed By: #### L AB15 ####Crabber: VELMA VALADEZ ([phone])[facility] ([facility])[address] [place] [address] CO2 [Moles/Vol] 18 mmol/L Low 22-30 [facility] Comment on above: Performed By: #### L AB15 ####Crabber: VELMA VALADEZ ([id number])[facility] ([facility])[address] [place] [address] Creatinine [Mass/Vol] 1.45 mg/dL High 0.52-1.04 [facility] Comment on above: Performed By: #### L AB15 ####Crabber: VELMA VALADEZ ([phone])[facility])[address] [place] [address] GLOMERULAR FILTRATION RATE ML/MIN/1.73 SQ M.PREDICTED 35.6 mL/min/1.73m*2 Low >60.0 [facility] Comment on above: Result Comment: Calc ulation based on the Chronic Kidney Disease Epidemiology Collaboration (CKD-EPI) equation refit without adjustment for race Performed By: #### L AB15 ####Crabber: VELMA VALADEZ ([id number])[facility] ([facility])[address] [place] [address] Glucose [Mass/Vol] 100 mg/dL Normal 70-100 [facility] Comment on above: Performed By: #### L AB15 ####Crabber: VELMA VALADEZ ([phone])[facility])[address] [place] [address] Potassium [Moles/Vol] 4.5 mmol/L Normal 3.5-5.1 [facility] Comment on above: Performed By: #### L AB15 ####Crabber: VELMA VALADEZ ([phone])[facility] ([facility])[address] [place] [address] Sodium [Moles/Vol] 135 mmol/L Normal 135-145 [facility] Comment on above: Performed By: #### L AB15 ####Crabber: VELMA VALADEZ ([phone])[facility])[address] [place] [address] Urea nitrogen [Mass/Vol] 30 mg/dL High 7-17 [facility] Comment on above: Performed By: #### L AB15 ####Crabber: VELMA VALADEZ ([phone])[facility])[address] [place] [address] Basic metabolic 1998 panelOr dered By: Marielle Garcia on 04-04-2024 Anion gap [Moles/Vol] 8 mmol/L 3 - 13 mmol/L [facility] Calcium [Mass/Vol] 9.3 mg/dL 8.4 - 10. 4 mg/dL [facility] Chloride [Moles/Vol] 110 mmol/L High 98 - 10 7 mmol/L [facility] CO2 [Moles/Vol] 18 mmol/L Low 22 - 30 mmol/L [facility] Creatinine [Mass/Vol] 1.45 mg/dL High 0.52 - 1.04 mg/dL [facility] GFR/1.73 sq M.predicted (S/P/Bld) [Vol rate/Area] 35.6 mL/min Low - PINF [facility] Comment on above: Calculation based on the Chronic Kidney Disease Epidemiology Collaboration (CKD-EPI) equation refit without adjustment for race Glucose [Mass/Vol] 100 mg/dL 70 - 100 mg/dL [facility] Interpretation and review of laboratory results Abnormal [facility] Potassium [Moles/Vol] 4.5 mmol/L 3.5 - 5.1 mmol/L [facility] Sodium [Moles/Vol] 135 mmol/L 135 - 145 mmol/L [facility] Urea nitrogen [Mass/Vol] 30 mg/dL High 7 - 17 mg/dL [facility] CARECOORDon 04-04-2024 CARECOORD Normal [facility] CBC W Auto Differential pane l (Bld)on 04-04-2024 Basophils (Bld) [#/Vol] 0.1 10*3/uL 0.0 - 0.2 10*3/uL [facility] Basophils/100 WBC (Bld) 0.7 % 0.0 - 2.0 % [facility] Eosinophils (Bld) [#/Vol] 0.3 10*3/uL 0.0 - 0.5 10*3/uL [facility] Eosinophils/100 WBC (Bld) 3.2 % 0.0 - 6.0 % [facility] Erythrocyte distribution width (RBC) [Ratio] 14.2 % 11.5 - 15.0 % [facility] Hematocrit (Bld) [Volume fraction] 38.8 % 35.0 - 47.0 % [facility] Hemoglobin (Bld) [Mass/Vol] 12.5 g/dL 11.7 - 16.0 g/dL [facility] Immature granulocytes (Bld) [#/Vol] 0.1 10*3/uL High NINF - 0.1 10*3/uL [facility] Immature granulocytes/100 WBC (Bld) 0.6 % 0.0 - 2.0 % [facility] Interpretation and review of laboratory results Abnormal [facility] Lymphocytes (Bld) [#/Vol] 1.6 10*3/uL 1.0 - 4.3 10*3/uL [facility] Lymphocytes/100 WBC (Bld) 19.2 % 15.0 - 45.0 % [facility] MCH (RBC) [Entitic mass] 29.7 pg 26.0 - 34.0 pg [facility] MCHC (RBC) [Mass/Vol] 32.2 % 30.5 - 36.0 % [facility] MCV (RBC) [Entitic vol] 92.2 fL 77.0 - 99.0 fL [facility] Monocytes (Bld) [#/Vol] 0.8 10*3/uL 0.0 - 0.9 10*3/uL [facility] Monocytes/100 WBC (Bld) 9.9 % 5.0 - 13.0 % [facility] Neutrophils (Bld) [#/Vol] 5.3 10*3/uL 1.8 - 7.5 10*3/uL [facility] Neutrophils/100 WBC (Bld) 66.4 % 38.0 - 82.0 % [facility] Nucleated RBC/100 WBC (Bld) [Ratio] 0.0 % [facility] Platelet mean volume (Bld) [Entitic vol] 10.0 fL 9.0 - 12.7 fL [facility] Platelets (Bld) [#/Vol] 266 10*3/uL 140 - 440 10*3/uL [facility] RBC (Bld) [#/Vol] 4.21 10*6/uL 3.80 - 5.2 0 10*6/uL [facility] WBC (Bld) [#/Vol] 8.1 10*3/uL 3.6 - 10.7 10*3/uL [facility] CBC WITH AUTO DIFFERENTIALon 04-04-2024 Basophils (Bld) [#/Vol] 0.1 10*3/uL Normal 0.0-0.2 [facility] Comment on above: Performed By: #### L [id number] ####Crabber: VELMA [id number])[facility] ([facility])[address] [place] [address] Basophils/100 WBC (Bld) 0.7 % Normal 0.0-2.0 [facility] Comment on above: Performed By: #### L [id number] ####Crabber: VELMA VALADEZ ([phone])[facility])[address] [place] [address] Eosinophils (Bld) [#/Vol] 0.3 10*3/uL Normal 0.0-0.5 [facility] Comment on above: Performed By: #### L [id number] ####Crabber: VELMA VALADEZ ([phone])[facility])[address] [place] [address] Eosinophils/100 WBC (Bld) 3.2 % Normal 0.0-6.0 [facility] Comment on above: Performed By: #### L [id number] ####Crabber: VELMA VALADEZ ([phone])[facility] ([facility])[address] [place] [address] Erythrocyte distribution width (RBC) [Ratio] 14.2 % Normal 11.5-15.0 [facility] Comment on above: Performed By: #### L [id number] ####Crabber: VELMA VALADEZ ([phone])[address] Hematocrit (Bld) [Volume fraction] 38.8 % Normal 35.0-47.0 [facility] Comment on above: Performed By: #### L [id number] ####Crabber: VELMA VALADEZ ([phone])[facility])[address] [place] [address] Hemoglobin (Bld) [Mass/Vol] 12.5 g/dL Normal 11.7-16.0 [facility] Comment on above: Performed By: #### L [id number] ####Crabber: VELMA VALADEZ ([phone])[facility])[address] [place] [address] IMMATURE GRANS % 0.6 % Normal 0.0-2.0 [facility] Comment on above: Performed By: #### L [id number] ####Crabber: VELMA VALADEZ ([phone])[facility])[address] [place] [address] IMMATURE GRANS ABSOLUTE 0.1 10*3/uL High <0.1 [facility] Comment on above: Performed By: #### L [id number] ####Crabber: VELMA VALADEZ ([phone])[facility])[address] [place] [address] Lymphocytes (Bld) [#/Vol] 1.6 10*3/uL Normal 1.0-4.3 [facility] Comment on above: Performed By: #### L [id number] ####Crabber: VELMA VALADEZ ([phone])[facility])[address] [place] [address] Lymphocytes/100 WBC (Bld) 19.2 % Normal 15.0-45.0 [facility] Comment on above: Performed By: #### L [id number] ####Crabber: VELMA VALADEZ ([id number])[facility])[address] [place] [address] MCH (RBC) [Entitic mass] 29.7 pg Normal 26.0-34.0 [facility] Comment on above: Performed By: #### L [id number] ####Crabber: VELMA VALADEZ ([phone])[facility])[address] [place] [address] MCHC 32.2 % Normal 30.5-36.0 [facility] Comment on above: Performed By: #### L [id number] ####Crabber: VELMA VALADEZ ([phone])[facility])[address] [place] [address] MCV (RBC) [Entitic vol] 92.2 fL Normal 77.0-99.0 [facility] Comment on above: Performed By: #### L [id number] ####Crabber: VELMA VALADEZ ([phone])[facility] ([facility])[address] [place] [address] Monocytes (Bld) [#/Vol] 0.8 10*3/uL Normal 0.0-0.9 [facility] Comment on above: Performed By: #### L [id number] ####Crabber: VELMA VALADEZ ([phone])[facility] ([facility])[address] [place] [address] Monocytes/100 WBC (Bld) 9.9 % Normal 5.0-13.0 [facility] Comment on above: Performed By: #### L [id number] ####Crabber: VELMA VALADEZ ([phone])[facility])[address] [place] [address] NEUTROPHILS ABSOLUTE 5.3 10*3/uL Normal 1.8-7.5 [facility] Comment on above: Performed By: #### L [id number] ####Crabber: VELMA VALADEZ ([phone])[facility] ([facility])[address] [place] [address] Neutrophils/100 WBC (Bld) 66.4 % Normal 38.0-82.0 [facility] Comment on above: Performed By: #### L [id number] ####Crabber: VELMA VALADEZ ([phone])[facility])[address] [place] [address] NRBC 0.0 /100 WBCs Normal 0.0-2.0 [facility] Comment on above: Performed By: #### L [id number] ####Crabber: VELMA VALADEZ ([phone])[facility])[address] [place] [address] Platelet mean volume (Bld) [Entitic vol] 10.0 fL Normal 9.0-12.7 [facility] Comment on above: Performed By: #### L [id number] ####Crabber: VELMA [id number])[facility] ([facility])[address] [place] [address] Platelets (Bld) [#/Vol] 266 10*3/uL Normal 140-440 [facility] Comment on above: Performed By: #### L [id number] ####Crabber: VELMA VALADEZ ([phone])[facility] ([facility])[address] [place] [address] RBC (Bld) [#/Vol] 4.21 10*6/uL Normal 3.80-5.20 [facility] Comment on above: Performed By: #### L [id number] ####Crabber: VELMA VALADEZ ([phone])[facility] ([facility])[address] [place] [address] WBC (Bld) [#/Vol] 8.1 10*3/uL Normal 3.6-10.7 [facility] Comment on above: Performed By: #### L [id number] ####Crabber: VELMA VALADEZ ([phone])[facility] ([facility])[address] [place] [address] Consulton 04-04-2024 Consult [facility] Consult Normal [facility] ECG 12-LEADon 04-04-2024 ECG 12-LEAD IMPRESSION: Atrial fibrillation Borderline T abnormalities, inferior leads Compared to ECG 08/28/11 Sinus rhythm no longer noted Electronically Signed On 04-04-2024 03:48:37 EDT by Sourav Swenson [facility] ED Nursing Noteon 04-04-2024 ED Nursing Note Report to Delia Bond RN 04/04/24 0342 [facility] ED Nursing Note Multiple attempts steffen wdae to call report to [facility] with phone number provided by power nut runner operator, but when phone number dialed RN only gets busy tone. Will try again. Shannon Bond RN 04/04/24 0331 [facility] ED Nursing Note [facility] at bedside to transport pt to [facility]. Paperwork with EMS Shannon Bond RN 04/04/24 3546 [facility] IDNon 04-04-2024 IDN The patient is Moderately Stable - Low risk of patient condition declining or worsening The patient's goals for the shift include safety The clinical goals for the shift include therapeutic aptt Normal [facility] IDN Normal [facility] No Panel Informationon 04-04 Left Pop Rfx 1.1 s [facility] Acute extensive DVT in the right [...] popliteal vein. History of DVT in 2021 [employer] Insulation Details A george scale, color Doppler imaging, spectral Doppler analysis and B-flow ultrasound was performed. During the study 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 and transverse views were obtained. Pulsed wave doppler was performed. The exam was performed with the patient in the supine position. Overall the study quality was adequate. Study was technically difficult due to: bowel gas. CV CPACS Left MICHELLE 0.62 [facility] Left dorsalis pedis BP 78 mmHg [facility] Left posterior tibial 86 mmHg [facility] Right MICHELLE 0.55 [facility] Right arm BP 139 mmHg [facility] Right dorsalis pedis BP 65 mmHg [facility] Right posterior tibial 76 mmHg [facility] Right side findings: Resting MICHELLE [...] of RLE discovered just before PVR testing. [employer] Details A spectral Doppler analysis ultrasound was [...] On 04-04-2024 03:48:37 EDT by Sourav Swenson [facility] [employer] No Panel InformationOrdered By: Sourav Swenson on 04-04-2024 P Luke 0 degrees [facility] [employer] Work Phone: [place] Interval 0 ms [facility] [employer] Work Phone: QRS Luke 40 degrees [facility] [employer] Work Phone: QRSD Interval 86 ms [employer] Work Phone: QT Interval 352 ms [employer] Work Phone: QTC Interval 411 ms [employer] Work Phone: T Wave Luke -3 degrees [employer] Work Phone: [employer] Work Phone: Progress Noteon 04-04-2024 Progress Note Normal [employer] [facility] Progress Note Normal [employer] [facility] Progress [facility] Vital signsOrdered By: Cathy Swenson on 04-04-2024 Heart rate 82 /min bpm [employer] Work Phone: aPTT Coag (Bld) [Time]on aPTT Coag (PPP) [Time] 81.8 s High 20.0 - 30.5 s [facility] Interpretation and review of laboratory results Abnormal [facility] NOTE: The therapeuti c time for Heparin anticoagulation, based on Xa activity inhibition, is an APTT of 46-80 seconds. [facility] aPTT Coag (PPP) [Time] 81.4 s High 20.0 - 30.5 s [facility] Interpretation and review of laboratory results Abnormal [facility] NOTE: The therapeuti c time for Heparin anticoagulation, based on Xa activity inhibition, is an APTT of 46-80 seconds. [facility] aPTT Coag (Bld) [Time]Ordere d By: Devika Eisenberg on 04-04-2024 aPTT Coag (PPP) [Time] 132.2 s Critically high 20 .0 - 30.5 s [facility] Interpretation and review of laboratory results Abnormal [facility] NOTE: The therapeuti c time for Heparin anticoagulation, based on Xa activity inhibition, is an APTT of 46-80 seconds. [facility] [employer] APTTon 04-03-2024 aPTT Coag (Bld) [Time] 25.6 s Normal 20.0-30.5 [facility] Comment on above: Result Comment: BUBBA Garcia COMMENTS:NOTE: The therapeutic time for Heparin anticoagulation, based on Xa activity inhibition, is an APTT of 46-80 seconds. Performed By: #### L [id number] ####Crabber: MARYLOU SEGURAPerriJHONATHAN ([phone])[facility] ([facility] [place] [address] CBC (HEMOGRAM)on 04-03-2024 Erythrocyte distribution width (RBC) [Ratio] 14.4 % Normal 11.5-15.0 [facility] Comment on above: Performed By: #### L [id number] ####Crabber: MARYLOU LALO ([phone])[facility] ([facility])[address] Hematocrit (Bld) [Volume fraction] 38.6 % Normal 35.0-47.0 [facility] Comment on above: Performed By: #### L [id number] ####Crabber: MARYLOUSVEN MAY ([phone])[facility] ([facility])[address] [place] [address] Hemoglobin (Bld) [Mass/Vol] 12.7 g/dL Normal 11.7-16.0 [facility] Comment on above: Performed By: #### L [id number] ####Crabber: MARYLOU SEGURAPerriJHONATHAN ([id number])[facility] ([facility])04 [place] [address] MCH (RBC) [Entitic mass] 30.4 pg Normal 26.0-34.0 [facility] Comment on above: Performed By: #### L [id number] ####Crabber: MARYLOU KUMARIJHONATHAN ([id number])[facility] ([facility])[address] [place] [address] MCHC 32.9 % Normal 30.5-36.0 [facility] Comment on above: Performed By: #### L AB294 ####Crabber: MARYLOU KUMARIJHONATHAN ([id number])[facility] ([facility])[address] [place] [address] MCV (RBC) [Entitic vol] 92.3 fL Normal 77.0-99.0 [facility] Comment on above: Performed By: #### L AB294 ####Crabber: MARYLOU MAY ([id number])[facility] HOSPITALSimran [facility]PLA[facility] CENTERBossman (SBHLAB)[address] Platelet mean volume (Bld) [Entitic vol] 10.0 fL Normal 9.0-12.7 [facility] Comment on above: Performed By: #### L AB294 ####Crabber: MARYLOU MAY ([id number])[facility] HOSPITALSimran [facility] CENTERBossman (SBHLAB)[address] Platelets (Bld) [#/Vol] 283 10*3/uL Normal 140-440 [facility] Comment on above: Performed By: #### L AB294 ####Crabber: MARYLOU MAY ([id number])[facility] ([facility])[address] [place] [address] RBC (Bld) [#/Vol] 4.18 10*6/uL Normal 3.80-5.20 [facility] Comment on above: Performed By: #### L AB294 ####Crabber: MARYLOU MAY ([id number])[facility] ([facility])[address] WBC (Bld) [#/Vol] 9.3 10*3/uL Normal 3.6-10.7 [facility] Comment on above: Performed By: #### L AB294 ####Crabber: MARYLOU MAY ([id number])[facility] (SBHLAB)[address] CBC panel Auto (Bld)on 04-03 Erythrocyte distribution width (RBC) [Ratio] 14.4 % 11.5 - 15.0 % [facility] Hematocrit (Bld) [Volume fraction] 38.6 % 35.0 - 47.0 % [facility] Hemoglobin (Bld) [Mass/Vol] 12.7 g/dL 11.7 - 16.0 g/dL [facility] Interpretation and review of laboratory results Normal [facility] MCH (RBC) [Entitic mass] 30.4 pg 26.0 - 34.0 pg [facility] MCHC (RBC) [Mass/Vol] 32.9 % 30.5 - 36.0 % [facility] MCV (RBC) [Entitic vol] 92.3 fL 77.0 - 99.0 fL [facility] Platelet mean volume (Bld) [Entitic vol] 10.0 fL 9.0 - 12.7 fL [facility] Platelets (Bld) [#/Vol] 283 10*3/uL 140 - 440 10*3/uL [facility] RBC (Bld) [#/Vol] 4.18 10*6/uL 3.80 - 5.2 0 10*6/uL [facility] WBC (Bld) [#/Vol] 9.3 10*3/uL 3.6 - 10.7 10*3/uL [facility] COMPREHENSIVE METABOLIC PANE Gilberto 04-03-2024 Albumin [Mass/Vol] 4.3 g/dL Normal 3.5-5.0 [facility] Comment on above: Performed By: #### Weston AB103, [id number], LAB17 ####Crabber: MARYLOU MAY ([phone])[facility] (SBHLAB)[address] ALP [Catalytic activity/Vol] 91 U/L Normal 38-126 [facility] Comment on above: Performed By: #### Weston REIS103, RMA456, LAB17 ####Crabber: MARYLOU MAY ([id number])[facility] (SBHLAB)[address] ALT [Catalytic activity/Vol] 10 U/L Normal 0-34 [facility] Comment on above: Performed By: #### L AB103, VUG810, LAB17 ####Crabber: MARYLOU MAY ([id number])[facility] (SBHLAB)[address] Anion gap [Moles/Vol] 9 mmol/L Normal 3-13 [facility] Comment on above: Performed By: #### L AB103, ART434, LAB17 ####Crabber: MARYLOU LALO ([id number])[facility] HOSPITALSimran CARRILLON (SBHLAB)[address] [place] [address] [place] AST [Catalytic activity/Vol] 19 U/L Normal 15-46 [facility] Comment on above: Performed By: #### L AB103, [id number], LAB17 ####Crabber: MARYLOU LALO ([id number])[facility] HOSPITALSimran CARRILLON (SBHLAB)[address] Bilirubin [Mass/Vol] 1.1 mg/dL Normal 0.2-1.3 [facility] Comment on above: Performed By: #### L AB103, DXC187, LAB17 ####Crabber: MARYLOU LALO ([id number])[facility] HOSPITALSimran SERRATO (SBHLAB)[address] Calcium [Mass/Vol] 9.3 mg/dL Normal 8.4-10.4 [facility] Comment on above: Performed By: #### L AB103, KYR106, LAB17 ####Crabber: MARYLOU SEGURAPAIGEJHONATHAN ([phone])[facility] HOSPITALSimran [facility]ENTERN (SBHLAB)[address] [place] [address] [place] Chloride [Moles/Vol] 107 mmol/L Normal 98-107 [facility] Comment on above: Performed By: #### L AB103, FGH390, LAB17 ####Crabber: MARYLOU KUMARIJHONATHAN ([id number])[facility] HOSPITALSimran CARRILLON (SBHLAB)[address] [place] [address] [place] CO2 [Moles/Vol] 20 mmol/L Low 22-30 [facility] Comment on above: Performed By: #### L AB103, MFZ137, LAB17 ####Crabber: MARYLOU MAY ([id number])[facility] HOSPITALSimran CARRILLON (SBHLAB)[address] [place] [address] [place] Creatinine [Mass/Vol] 1.54 mg/dL High 0.52-1.04 [facility] Comment on above: Performed By: #### L AB103, WPY575, LAB17 ####Crabber: MARYLOU MAY ([id number])[facility] ([facility])[address] GLOMERULAR FILTRATION RATE ML/MIN/1.73 SQ M.PREDICTED 33.2 mL/min/1.73m*2 Low >60.0 [facility] Comment on above: Result Comment: Calc ulation based on the Chronic Kidney Disease Epidemiology Collaboration (CKD-EPI) equation refit without adjustment for race Performed By: #### L AB103, IZK586, LAB17 ####Crabber: MARYLOU AMY ([phone])[facility] ([facility])[address] [place] [address] Glucose [Mass/Vol] 115 mg/dL High 70-100 [facility] Comment on above: Performed By: #### Weston DAWSON, MTK973, LAB17 ####Crabber: MARYLOU MAY ([id number])[facility] ([facility])[address] Potassium [Moles/Vol] 5.7 mmol/L High 3.5-5.1 [facility] Comment on above: Performed By: #### Weston REIS103, YPD204, LAB17 ####Crabber: MARYLOU MAY ([id number])[facility] ([facility])[address] Protein [Mass/Vol] 7.7 g/dL Normal 6.3-8.2 [facility] Comment on above: Performed By: #### L AB103, KMC979, LAB17 ####Crabber: MARYLOU MAY ([id number])[facility] ([facility])[address] [place] [address] [place] Sodium [Moles/Vol] 135 mmol/L Normal 135-145 [facility] Comment on above: Performed By: #### L AB103, EBR740, LAB17 ####Crabber: MARYLOU MAY ([id number])[facility] ([facility])[address] Urea nitrogen [Mass/Vol] 29 mg/dL High 7-17 [facility] Comment on above: Performed By: #### L AB103, MGC225, LAB17 ####Crabber: MARYLOU MAY ([id number])[facility] (SBHLAB)[address] HEAD WO IV CONTRASTon CT HEAD WO IV CONTRAST Normal [facility] CT Head WO contraston 2023 1. No acute finding. Chronic left cerebellar infarct.. Report Dictated on Electronically Signed By: Toño Tang MD Electronically Signed Date/Time: 04/03/2024 9:21 PM EDT [facility] Patient Name: MEL CARVER RD : [...] midline shift. No hydrocephalus. Left globe prosthesis. [facility] Toño Tang MD - 04/03/2024 Patient Name: [...] Electronically Signed Date/Time: 04/03/2024 9:21 PM EDT [facility] Radiology Study observation (narrative) [facility] CT Head WO contrastOrdered B y: Toño Tang on 04-03-2024 [employer] Work Phone: CTA AORTA BL ILIOFEMORAL W W Oon 04-03-2024 CTA AORTA BL ILIOFEMORAL W WO Normal [facility] CTA Thoracic and Abdominal A zachary and Bilateral Runoff Vessels WO and W contrast Cheryl 04-03-2024 1. Severe lower extremity atherosclerotic disease. 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 2. 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 3. Severe diverticulosis. Report Dictated on Electronically Signed By: Toño Tang MD Electronically Signed Date/Time: 04/03/2024 9:36 PM EDT [facility] [employer] Patient Name: MEL CARVER RD : 1940 [id number] Exam Date/Time: 04/03/2024 21:14 Procedure: CTA AORTA [...] lower leg. [facility] Tooñ Tang MD - 04/03/2024 Patient Name: MEL [...] Electronically Signed Date/Time: 04/03/2024 9:36 PM EDT [facility] Radiology Study observation (narrative) [facility] metabolic 1998 panelon 04-03-2024 Albumin [Mass/Vol] 4.3 g/dL 3.5 - 5.0 g/dL [facility] ALP [Catalytic activity/Vol] 91 U/L 38 - 126 U/L [facility] ALT [Catalytic activity/Vol] 10 U/L 0 - 34 U/L [facility] Anion gap [Moles/Vol] 9 mmol/L 3 - 13 mmol/L [facility] AST [Catalytic activity/Vol] 19 U/L 15 - 46 U/L [facility] Bilirubin [Mass/Vol] 1.1 mg/dL 0.2 - 1 .3 mg/dL [facility] Calcium [Mass/Vol] 9.3 mg/dL 8.4 - 10. 4 mg/dL [facility] Chloride [Moles/Vol] 107 mmol/L 98 - 10 7 mmol/L [facility] CO2 [Moles/Vol] 20 mmol/L Low 22 - 30 mmol/L [facility] Creatinine [Mass/Vol] 1.54 mg/dL High 0.52 - 1.04 mg/dL [facility] GFR/1.73 sq M.predicted (S/P/Bld) [Vol rate/Area] 33.2 mL/min Low - PINF [facility] Comment on above: Calculation based on the Chronic Kidney Disease Epidemiology Collaboration (CKD-EPI) equation refit without adjustment for race Glucose [Mass/Vol] 115 mg/dL High 70 - 100 mg/dL [facility] Interpretation and review of laboratory results Abnormal [facility] Potassium [Moles/Vol] 5.7 mmol/L High 3.5 - 5.1 mmol/L [facility] Protein [Mass/Vol] 7.7 g/dL 6.3 - 8.2 g/dL [facility] Sodium [Moles/Vol] 135 mmol/L 135 - 145 mmol/L [facility] Urea nitrogen [Mass/Vol] 29 mg/dL High 7 - 17 mg/dL [facility] ED Nursing Noteon 04-03-2024 ED Nursing Note Normal [facility] ED Provider Noteon ED Provider Note Normal [facility] Laboratory - Chemistry and C hemistry - challengeon 04-03-2024 Troponin I.cardiac [Mass/Vol] 0.014 ng/mL NINF - 0.034 ng/mL [facility] Magnesium [Mass/Vol] 2.3 mg/dL 1.6 - 2 .3 mg/dL [facility] Laboratory - Coagulationon 0 04-03-2024 aPTT Coag (PPP) [Time] 26.7 s 20.0 - 30.5 s [facility] INR Coag (PPP) [Relative time] 1.0 {INR} 0.9 - 1.1 [facility] Comment on above: Recommended Anticoag ulant [...] 11.7 s 9.0 - 1 2.0 s [facility] MAGNESIUMon 04-03-2024 Magnesium [Mass/Vol] 2.3 mg/dL Normal 1.6-2.3 [facility] Comment on above: Performed By: #### L AB103, NHW057, LAB17 ####Crabber: MARYLOU MAY ([phone])[facility] ROJELIO ([facility])[address] [place] [address] Magnesium [Mass/Vol]on 04-03 Interpretation and review of laboratory results Normal [facility] No Panel Informationon 04-03 [facility] Interpretation and review of laboratory results Normal [facility] PROTIME AND APTTon aPTT Coag (Bld) [Time] 26.7 s Normal 20.0-30.5 [facility] Comment on above: Performed By: #### L [id number] ####Crabber: MARYLOU MAY ([id number])[facility] ([facility])[address] [place] [address] INR Coag (PPP) [Relative time] 1.0 {INR} Normal 0.9-1.1 [facility] Comment on above: Result Comment: Timothy [...] prevent Myocardial Infarction Performed By: #### L [id number] ####Crabber: MARYLOU MAY ([id number])[facility] ([facility])[address] [place] [address] PT Coag (PPP) [Time] 11.7 s Normal 9.0-12.0 [facility] Comment on above: Performed By: #### L [id number] ####Crabber: MARYLOU MAY ([id number])[facility] ([facility])[address] [place] [address] TROPONIN Ion 04-03-2024 Troponin I.cardiac [Mass/Vol] 0.014 ng/mL Normal <0.034 [facility] Comment on above: Result Comment: BUBBA Garcia COMMENTS:Patients with high levels of Biotin oral intake (ie >5 mg/day) may have falsely decreased Troponin levels. Performed By: #### L AB103, KZP992, LAB17 ####Crabber: MARYLOU MAY ([id number])[facility] ([facility])[address] [place] [address] Troponin I.cardiac [Mass/Vol ]on 04-03-2024 Interpretation and review of laboratory results Normal [facility] Patients with high levels of Biotin oral intake (ie >5 mg/day) may have falsely decreased Troponin levels. [facility] aPTT Coag (Bld) [Time]on aPTT Coag (PPP) [Time] 25.6 s 20.0 - 30.5 s [facility] Interpretation and review of laboratory results Normal [facility] NOTE: The therapeuti c time for Heparin anticoagulation, based on Xa activity inhibition, is an APTT of 46-80 seconds. [facility] MR Lower leg - left WO [...] MD Electronically Signed Date/Time: 06/16/2023 8:10 AM [facility] [employer] [facility] Patient Name: MEL CARVER RD : 1940 [facility] [id number] Exam Date/Time: 06/15/2023 16:21 Procedure: MR TIBIA [...] and lateral ankle resulting from ORIF hardware. [facility] Dimas Woodward MD - 06/16/2023 Patient Name: MEL POP : 1940 [facility]#: [id number] Exam Date/Time: 06/15/2023 16:21 Procedure: MR TIBIA [...] Electronically Signed Date/Time: 06/16/2023 8:10 AM EST [employer] MR Lower leg - left WO and W contrast IVOrdered By: Dimas Woodward on 06-16-2023 [employer] Work Phone: MR Lower leg - left WO and W contrast Cheryl 06-15-2023 Radiology Study [facility]narrative[facility] Panel Informationon 05-24 No evidence of venous thrombus in the left lower extremity. Report Dictated on Electronically Signed By: Yasmany Whyte MD Electronically Signed Date/Time: 05/24/2023 11:42 AM [facility] Patient Name: MEL CARVER [...] augmentation and normal response to Valsalva maneuver. [facility] Yasmany Whyte MD - 05/24/2023 Patient Name: [...] Electronically Signed Date/Time: 05/24/2023 11:42 AM EST [facility] Neck W contrast Cheryl 02-16 Patient [...] MD Electronically Signed Date/Time: 03/11/2023 10:28 AM [facility] Efrain Yi MD - 03/11/2023 [...] Electronically Signed Date/Time: 03/11/2023 10:28 AM EDT [facility] Neck W contrast IVOrdered By: Efrain Yi on 03-11-2023 [employer] Work Phone: CT Neck W contrast Cheryl 02-16 Radiology Study observation (narrative) [facility] alth US Head and neck [...] Electronically Signed Date/Time: 02/24/2023 8:23 AM EDT [employer] [facility] Patient Name: MEL CARVER RD [...] measuring 1.8 x 1.6 x 1.4 cm. [employer] [facility] Ryan Mccollum MD - 02/24/2023 Patient Name: MEL POP : 1940 [facility]#: [id number] Exam Date/Time: 02/22/2023 13:44 Procedure: US HEAD [...] Electronically Signed Date/Time: 02/24/2023 8:23 AM EDT [facility] US Head and neck soft tissue Ordered By: Ryan Mccollum on 02-24-2023 [employer] Work Phone: US Head and neck soft tissue on 02-22-2023 Radiology Study observation (narrative) [facility] CONSULT PROGon 06-29-2022 CONSULT PROG HNO ID: [id number] Author: Nemo Petty APRN.SOAP TENDER Service: Wound/Ostomy Author Type: Nurse Practitioner Type: Consult Progress Note Filed: 06/29/2022 12:51 PM Note Text: WOUND CARE SERVICE PROGRESS SUBWAY CAR REPAIRER NOTE SERVICE DATE: 06/29/2022 SERVICE TIME: 10:20 TIME SPENT (minutes): 30 REASON FOR CONSULT: follow up wound care visit to reassess skin/wounds CHIEF COMPLAINT: right finger wound Subjective HISTORY OF PRESENT ILLNESS: Ms. Jose Alberto Castillo is a 81 year old female who is seen today with Delia Bruno, Wound/leather cleaner, as a follow up wound care visit [...] Wound Image Site Assessment Red;Intact Allie-Wound Assessment [place] Drainage Amount None Treatments Protective Barrier Ointment Dressing Foam- Adhesive Active Orders Date Order Priority Status Authorizing Provider 06/28/22 1423 zinc oxide 20 % ointment Active Iwona Chu DO 06/21/22 1248 DRESSING CARE (SPECIFY) ([place]) Routine Active Fidel Carmen APRN.SOAP TENDER - Specify:: Apply allevyn foam to coccyx, peel down every shift to assess skin and to apply zinc oxide, change every 3 days or if soiled. 06/21/22 1248 zinc oxide 20 % Active Fidel Carmen APRN.SOAP TENDER Wound 06/16/22 Incision Knee Left;Posterior (Active) Assessments 06/29/2022 10:27 AM Wound Image Site Assessment Dry;Intact Allie-Wound Assessment Intact Closure Sutures Drainage Amount None Treatments Open to Air No Linked orders to display Wound 06/21/22 0948 Atypical Wound Finger (Comment which one) Right (Active) Assessments 06/29/2022 10:23 AM Wound Image Site Assessment Red;[place] Allie-Wound Assessment Intact Wound Length (cm) 2 cm Wound Width (cm) 2.5 cm Wound Surface Area (cm2) 5 cm2 Wound Depth (cm) 0.1 cm Wound Volume (cm3) 0.5 (more content not included)... Normal [facility] NUTRITIONon 06-29-2022 NUTRITION HNO ID: [id number] Author: Iwona Pelayo RD Service: Nutrition Therapy Author Type: Registered Dietitian Type: Nutrition Filed: 06/29/2022 1:38 PM Note Text: NUTRITION THERAPY PROGRESS NOTE SERVICE DATE: 06/29/2022 SERVICE TIME: 13:30 Nutrition Assessment: Recommended Malnutrition Diagnosis: No Malnutrition Identified (06/23/22 1109 : Parul Mcallister RD) Estimated kilocalorie needs: 4005-5450 Calorie Calculation Method: 25-30 kcals/kg Estimated protein [...] June 29, 2022 TIME: 10:17 AM Normal [facility] PT EDon 06-29-2022 PT ED HNO ID: [id number] Author: Joana Tolbert RPh Service: Pharmacy Author [...] information Outcomes not met: N/A Joana Tolbert [facility] 06-28-2022 [facility] HNO ID: [id number] Author: Iwona Chu DO Service: Hospital Medicine [...] micropuncture needle and serially upsized to a 5-Senegalese sheath. A venogram was then performed, which [...] time, the sheath was upsized to an 8-Senegalese sheath. An intravascular ultrasound was performed. This [...] educational literat (more content not included)... Normal [facility] NURSING PROGon 06-28-2022 NURSING PROG HNO ID: [id number] Author: John Castro RN Service: Nursing Author Type: Registered Nurse Type: Nursing Progress Note Filed: 06/28/2022 2:28 PM Note Text: Other: Ambulatory pulse ox per Dr. hCu SpO2 on Room air at rest: 91% SpO2 while ambulating on Room air: 83% SpO2 while ambulating on 2 liters of oxygen: 91% Normal [facility] Bacteria Spec Resp Culton Bacteria identified Respiratory culture Nom (Unsp spec) CULTURE, RESPIRATORY: Few Normal respiratory radha present ORGANISM ID: 1 Few Lactose fermenting gram negative rods Insignificant colony count. No further workup. GRAM STAIN: Rare Gram positive cocci Few Polymorphonuclear leukocytes Few Epithelial cells Abnormal [facility] Comment on above: Performed By: #### 3 2355-0 #### [facility] CLIA [id number] [address] [place] CONSULT PROGon 06-25-2022 CONSULT PROG HNO ID: [id number] Author: Cirilo Yip RPh Service: Pharmacy Author Type: Pharmacist Type: Consult Progress Note Filed: 06/25/2022 1:49 PM Note Text: PHARMACY ORAL ANTICOAGULATION PATIENT EDUCATION NOTE Oral anticoagulant: apixaban Indication: DVT/PE Patient New to medication: Yes LEARNERS Persons Present: Patient Primary Learner: Patient Home Visit Field Care Manager Present: No Patient educated on the followin. [...] June 25, 2022 TIME: 1:48 PM Normal [facility] Bacteria Spec Resp Culton Bacteria identified Respiratory culture Nom (Unsp spec) CULTURE, RESPIRATORY: Moderate Normal respiratory radha present GRAM STAIN: Moderate Mixed oral radha Few Polymorphonuclear leukocytes Few Epithelial cells Abnormal [facility] Comment on above: Performed By: #### 3 2355-0 ####[facility] LABORATORYCLIA [id number] [place] [address] [place] Basic metabolic 2000 panelon 06-24-2022 Anion gap [Moles/Vol] 10 mmol/L Normal 9-18 [facility] Comment on above: Order Comment: Speci men Type: BLOOD SPECIMENOrdering Facility: [facility] Address: [address] [place] [address] Performed By: #### 2 4321-2, 75147-5 ####[facility] LABORATORYCLIA [id number] [place] [address] [place] Calcium [Mass/Vol] 9.0 mg/dL Normal 8.5-10.2 [facility] Comment on above: Order Comment: Speci men Type: BLOOD SPECIMENOrdering Facility: [facility] Address: [address] [place] [address] Performed By: #### 2 4321-2, 31904-3 ####[facility] LABORATORYCLIA [id number] [place] [address] [place] Chloride [Moles/Vol] 103 mmol/L Normal 97-105 [facility] Comment on above: Order Comment: Speci men Type: BLOOD SPECIMENOrdering Facility: [facility] Address: [address] [place] [address] Performed By: #### 2 4321-2, 85359-6 ####[facility] LABORATORYCLIA [id number] [place] [address] [place] CO2 [Moles/Vol] 23 mmol/L Normal 22-30 [facility] Comment on above: Order Comment: Speci men Type: BLOOD SPECIMENOrdering Facility: [facility] Address: [address] [place] [address] Performed By: #### 2 4321-2, 38995-3 ####[facility] LABORATORYCLIA [id number] [address] [place] [facility] Creatinine [Mass/Vol] 0.73 mg/dL Normal 0.58-0.96 [facility] Comment on above: Order Comment: Rhina mason Type: BLOOD SPECIMENOrdering Facility: [facility] Address: [address] [address] Performed By: #### 2 4321-2, 37008-0 ####[facility]ITAL[facility] [id number] [address] ESTIMATED GLOMERULAR FILTRATION RATE 82 mL/min/1.73m??? Normal >=60 [facility] Comment on above: Order Comment: Rhina mason Type: BLOOD SPECIMENOrdering Facility: [facility] Address: [address] [place] [address] Result Comment: Isa mated Glomerular Filtration Rate [...] actual GFR. Performed By: #### 2 4321-2, 49344-5 ####[facility] HOSPITALIA [id number] [address] [place] [facility] Glucose [Mass/Vol] 165 mg/dL High 74-99 [facility] Comment on above: Order Comment: Rhina isabella Type: BLOOD SPECIMENOrdering Facility: [facility] Address: [address] [place] [address] Result Comment: The [place] Diabetes Association (ADA) provides guidance for cutoff [...] Standards of Medical Care in Diabetes 2016, [place] Diabetes Association. Diabetes Care. 2016.39(Suppl 1). Performed By: #### 2 4321-2, 50040-9 ####[facility] [facility]ORYCLIA [id number] [address] STATES OF [facility] Potassium [Moles/Vol] 5.0 mmol/L Normal 3.7-5.1 [facility] Comment on above: Order Comment: Speci men Type: BLOOD SPECIMENOrdering Facility: [facility] Address: [address] [address] Performed By: #### 2 4321-2, 04160-8 ####[facility] LABORATORYCLIA [id number] [address] STATES [facility] Sodium [Moles/Vol] 136 mmol/L Normal 136-144 [facility] Comment on above: Order Comment: Speci men Type: BLOOD SPECIMENOrdering Facility: [facility] Address: [address] [address] Performed By: #### 2 4321-2, 66510-5 ####[facility] LABORATORYCLIA [id number] [address] STATES [facility] Urea nitrogen [Mass/Vol] 14 mg/dL Normal 7-21 [facility] Comment on above: Order Comment: Speci men Type: BLOOD SPECIMENOrdering Facility: [facility] Address: [address] [address] Performed By: #### 2 4321-2, 00460-9 ####[facility] LABORATORYCLIA [id number] [address] [place] CBC panel Auto (Bld)on 06-24 Erythrocyte distribution width (RBC) [Ratio] 17.0 % High 11.5-15.0 [facility] Comment on above: Order Comment: Speci men Type: BLOOD SPECIMENOrdering Facility: [facility] Address: [address] [address] Performed By: #### 5 8410-2 ####[facility] LABORATORYCLIA [id number] [address] OF [facility] Hematocrit (Bld) [Volume fraction] 27.2 % Low 36.0-46.0 [facility] Comment on above: Order Comment: Speci men Type: BLOOD SPECIMENOrdering Facility: [facility] Address: [address] [place] [address] Performed By: #### 5 8410-2 ####[facility] LABORATORYCLIA [id number] [address] OF [facility] Hemoglobin (Bld) [Mass/Vol] 8.9 g/dL Low 11.5-15.5 [facility] Comment on above: Order Comment: Speci men Type: BLOOD SPECIMENOrdering Facility: [facility] Address: [address] [place] [address] Performed By: #### 5 8410-2 ####[facility]ORATORYCLIA [id number] [address] MCH (RBC) [Entitic mass] 30.9 pg Normal 26.0-34.0 [facility] Comment on above: Order Comment: Speci men Type: BLOOD SPECIMENOrdering Facility: [facility] Address: [address] [place] [address] Performed By: #### 5 8410-2 ####[facility]ORATORYCLIA [id number] [address] [place] MCHC (RBC) [Mass/Vol] 32.7 g/dL Normal 30.5-36.0 [facility] Comment on above: Order Comment: Speci men Type: BLOOD SPECIMENOrdering Facility: [facility] Address: [address] [place] [address] Performed By: #### 5 8410-2 ####[facility]ORATORYCLIA [id number] [address] MCV (RBC) [Entitic vol] 94.4 fL Normal 80.0-100.0 [facility] Comment on above: Order Comment: Speci men Type: BLOOD SPECIMENOrdering Facility: [facility] Address: [address] [address] Performed By: #### 5 8410-2 ####[facility]ORATORYCLIA [id number] [address] [place] Nucleated RBC (Bld) [#/Vol] 0.03 10*3/uL High <0.01 [facility] Comment on above: Order Comment: Speci men Type: BLOOD SPECIMENOrdering Facility: [facility] Address: [address] [address] Performed By: #### 5 8410-2 ####[facility] LABORATORYCLIA [id number] [address] [place] Platelet mean volume (Bld) [Entitic vol] 9.8 fL Normal 9.0-12.7 [facility] Comment on above: Order Comment: Speci men Type: BLOOD SPECIMENOrdering Facility: [facility] Address: [address] [place] [address] Performed By: #### 5 8410-2 ####[facility]ATORYCLIA [id number] [address] [place] Platelets (Bld) [#/Vol] 241 10*3/uL Normal 150-400 [facility] Comment on above: Order Comment: Speci men Type: BLOOD SPECIMENOrdering Facility: [facility] Address: [address] [address] Performed By: #### 5 8410-2 ####[facility]ORATORYCLIA [id number] [address] [place] RBC (Bld) [#/Vol] 2.88 10*6/uL Low 3.90-5.20 [facility] Comment on above: Order Comment: Speci men Type: BLOOD SPECIMENOrdering Facility: [facility] Address: [address] [place] [address] Performed By: #### 5 8410-2 ####[facility]ATORYCLIA [id number] [address] [place] WBC (Bld) [#/Vol] 6.37 10*3/uL Normal 3.70-11.00 [facility] Comment on above: Order Comment: Speci men Type: BLOOD SPECIMENOrdering Facility: [facility] Address: [address] [place] [address] Performed By: #### 5 8410-2 ####[facility]ORATORYCLIA [id number] [address] NT-proBNP SerPl-mCncon 06-24 Natriuretic peptide.B prohormone N-Terminal [Mass/Vol] 2971 pg/mL High <450 [facility] Comment on above: Order Comment: Speci men Type: BLOOD SPECIMENOrdering Facility: [facility] Address: [address] [place] [address] Performed By: #### 2 4321-2, 40039-2 ####[facility]ATORYCLIA [id number] [address] aPTT PPPon 06-24-2022 aPTT Coag (PPP) [Time] 64.2 s High 23.0-32.4 [facility] Comment on above: Order Comment: Speci men Type: BLOOD SPECIMEN [facility] Address: [address] [place] [address] Performed By: #### T SCR #### [facility] CLIA [id number] [address] OF [facility] aPTT Coag (PPP) [Time] 45.8 s High 23.0-32.4 [facility] Comment on above: Order Comment: Speci men Type: BLOOD SPECIMENOrdering Facility: [facility] Address: [address] [place] [address] Performed By: #### 3 2355-0 #### [facility] CLIA [id number] [address] aPTT Coag (PPP) [Time] 116.8 s High 28.5-34.0 [facility] Comment on above: Order Comment: Speci men Type: BLOOD SPECIMENOrdering Facility: [facility] Address: [address] [place] [address] Performed By: #### 1 4979-9 ####[facility]ATORYCLIA [id number] [place] [address] [place] ALLIED HEALTHon 06-23-2022 ALLIED HEALTH HNO ID: [id number] Author: Mikel Coronado RT(R) Service: Radiology Author [...] RT(R) June 23, 2022 9:41 PM Normal [facility] CBC panel Auto (Bld)on 06-23 Erythrocyte distribution width (RBC) [Ratio] 16.6 % High 11.5-15.0 [facility] Comment on above: Order Comment: Speci men Type: BLOOD SPECIMENOrdering Facility: [facility] Address: [address] [place] [address] Performed By: #### 5 8410-2 ####[facility]ATORYCLIA [id number] [address] [place] Hematocrit (Bld) [Volume fraction] 29.6 % Low 36.0-46.0 [facility] Comment on above: Order Comment: Speci men Type: BLOOD SPECIMENOrdering Facility: [facility] Address: [address] [place] [address] Performed By: #### 5 8410-2 ####[facility]ATORYCLIA [id number] [address] Hemoglobin (Bld) [Mass/Vol] 9.5 g/dL Low 11.5-15.5 [facility] Comment on above: Order Comment: Speci men Type: BLOOD SPECIMENOrdering Facility: [facility] Address: [address] [place] [address] Performed By: #### 5 8410-2 ####[facility]ATORYCLIA [id number] [address] MCH (RBC) [Entitic mass] 30.4 pg Normal 26.0-34.0 [facility] Comment on above: Order Comment: Speci men Type: BLOOD SPECIMENOrdering Facility: [facility] Address: [address] [place] [address] Performed By: #### 5 8410-2 ####[facility]ATORYCLIA [id number] [address] MCHC (RBC) [Mass/Vol] 32.1 g/dL Normal 30.5-36.0 [facility] Comment on above: Order Comment: Speci men Type: BLOOD SPECIMENOrdering Facility: [facility] Address: [address] [place] [address] Performed By: #### 5 8410-2 ####[facility]ORATORYCLIA [id number] [address] STATES [facility] MCV (RBC) [Entitic vol] 94.6 fL Normal 80.0-100.0 [facility] Comment on above: Order Comment: Speci men Type: BLOOD SPECIMENOrdering Facility: [facility] Address: [address] [place] [address] Performed By: #### 5 8410-2 ####[facility]ORATORYCLIA [id number] [place] [address] [place] Nucleated RBC (Bld) [#/Vol] 0.07 10*3/uL High <0.01 [facility] Comment on above: Order Comment: Speci men Type: BLOOD SPECIMENOrdering Facility: [facility] Address: [address] [place] [address] Performed By: #### 5 8410-2 ####[facility]ATORYCLIA [id number] [place] [address] [place] Platelet mean volume (Bld) [Entitic vol] 9.9 fL Normal 9.0-12.7 [facility] Comment on above: Order Comment: Speci men Type: BLOOD SPECIMENOrdering Facility: [facility] Address: [address] [place] [address] Performed By: #### 5 8410-2 ####[facility]ATORYCLIA [id number] [place] [address] [place] Platelets (Bld) [#/Vol] 241 10*3/uL Normal 150-400 [facility] Comment on above: Order Comment: Speci men Type: BLOOD SPECIMENOrdering Facility: [facility] Address: [address] [place] [address] Performed By: #### 5 8410-2 ####[facility]ATORYCLIA [id number] [place] [address] [place] RBC (Bld) [#/Vol] 3.13 10*6/uL Low 3.90-5.20 [facility] Comment on above: Order Comment: Speci men Type: BLOOD SPECIMENOrdering Facility: [facility] Address: [address] [place] [address] Performed By: #### 5 8410-2 ####[facility]ORATORYCLIA [id number] [place] [address] [place] WBC (Bld) [#/Vol] 6.86 10*3/uL Normal 3.70-11.00 [facility] Comment on above: Order Comment: Speci men Type: BLOOD SPECIMENOrdering Facility: [facility] Address: [address] [place] [address] Performed By: #### 5 8410-2 ####[facility] LABORATORYCLIA [id number] [place] [address] [facility] NUTRITIONon 06-23-2022 NUTRITION HNO ID: [id number] Author: Parul Mcallister RD Service: Nutrition Therapy Author Type: Registered Dietitian Type: Nutrition Filed: 06/23/2022 2:28 PM Note Text: NUTRITION THERAPY INITIAL ASSESSMENT SERVICE DATE: 06/23/2022 SERVICE TIME: 11:09 AM Nutrition Assessment: Recommended Malnutrition Diagnosis: No Malnutrition Identified Nutrition Diagnosis: Problem: Suboptimal protein/energy intake Related to: Inability to consume sufficient nutrients As evidenced by: Patient/family self-report;Intake records Estimated kilocalorie needs: [id number] Calorie Calculation Method: 25-30 kcals/kg Estimated protein [...] June 23, 2022 TIME: 11:09 AM Normal [facility] XR CHEST 2V FRONTAL/LATon XR CHEST [...] sites of pneumonia. Small bilateral pleural effusions. Research Environmental Scientist: PSCB Transcribe Date/Time: Jun 24 2022 6:34A Dictated by : DI MINER MD This examination was interpreted and the report reviewed and electronically signed by: DI MINER MD on Jun 24 2022 6:36AM EST [id number] Normal [facility] aPTT PPPon 06-23-2022 aPTT Coag (PPP) [Time] 46.7 s High 23.0-32.4 [facility] Comment on above: Order Comment: Speci men Type: BLOOD SPECIMENOrdering Facility: [facility] Address: [address] [place] [address] Performed By: #### 1 4979-9 ####[facility] LABORATORYCLIA [id number] [address] aPTT Coag (PPP) [Time] 53.8 s High 23.0-32.4 [facility] Comment on above: Order Comment: Speci men Type: BLOOD SPECIMENOrdering Facility: [facility] Address: [address] [place] [address] Performed By: #### 1 4979-9 ####[facility] LABORATORYCLIA [id number] [address] aPTT Coag (PPP) [Time] 114.5 s High 23.0-32.4 [facility] Comment on above: Order Comment: Speci men Type: BLOOD SPECIMEN [facility] Address: [address] [place] [address] Performed By: #### T SCR #### [facility] CLIA [id number] [address] CBC W Auto Differential pane l (Bld)on 06-22-2022 Basophils (Bld) [#/Vol] 0.03 10*3/uL Normal <0.11 [facility] Comment on above: Order Comment: Speci men Type: BLOOD SPECIMENOrdering Facility: [facility] Address: [address] [place] [address] Result Comment: Diff erential confirmed by visual scan of peripheral blood smear slide Performed By: #### 5 7021-8 ####[facility] LABORATORYCLIA [id number] [address] Basophils/100 WBC (Bld) 0.5 % Normal [facility] Comment on above: Order Comment: Speci men Type: BLOOD SPECIMENOrdering Facility: [facility] Address: [address] [place] [address] Performed By: #### 5 7021-8 ####[facility]ORATORYCLIA [id number] [address] Differential cell count method Nom (Bld) Auto Normal [facility] Comment on above: Order Comment: Speci men Type: BLOOD SPECIMENOrdering Facility: [facility] Address: [address] [place] [address] Performed By: #### 5 7021-8 ####[facility] LABORATORYCLIA [id number] [address] [place] Eosinophils (Bld) [#/Vol] 10*3/uL Normal <0.46 [facility] Comment on above: Order Comment: Speci men Type: BLOOD SPECIMENOrdering Facility: [facility] Address: [address] [place] [address] Performed By: #### 5 7021-8 ####[facility] LABORATORYCLIA [id number] [address] Eosinophils/100 WBC (Bld) 0.0 % Normal [facility] Comment on above: Order Comment: Speci men Type: BLOOD SPECIMENOrdering Facility: [facility] Address: [address] [place] [address] Performed By: #### 5 7021-8 ####[facility] LABORATORYCLIA [id number] [address] [place] Erythrocyte distribution width (RBC) [Ratio] 16.2 % High 11.5-15.0 [facility] Comment on above: Order Comment: Speci men Type: BLOOD SPECIMENOrdering Facility: [facility] Address: [address] [place] [address] Performed By: #### 5 7021-8 ####[facility] LABORATORYCLIA [id number] [address] [place] Hematocrit (Bld) [Volume fraction] 25.1 % Low 36.0-46.0 [facility] Comment on above: Order Comment: Speci men Type: BLOOD SPECIMENOrdering Facility: [facility] Address: [address] [place] [address] Performed By: #### 5 7021-8 ####[facility] LABORATORYCLIA [id number] [address] [place] Hemoglobin (Bld) [Mass/Vol] 8.4 g/dL Low 11.5-15.5 [facility] Comment on above: Order Comment: Speci men Type: BLOOD SPECIMENOrdering Facility: [facility] Address: [address] [place] [address] Performed By: #### 5 7021-8 ####[facility] LABORATORYCLIA [id number] [address] [place] Immature granulocytes (Bld) [#/Vol] 0.60 10*3/uL High <0.10 [facility] Comment on above: Order Comment: Speci men Type: BLOOD SPECIMENOrdering Facility: [facility] Address: [address] [place] [address] Performed By: #### 5 7021-8 ####[facility] LABORATORYCLIA [id number] [address] [place] Immature granulocytes/100 WBC (Bld) 10.3 % Normal [facility] Comment on above: Order Comment: Speci men Type: BLOOD SPECIMENOrdering Facility: [facility] Address: [address] [place] [address] Performed By: #### 5 7021-8 ####[facility] LABORATORYCLIA [id number] [place] [address] [place] Lymphocytes (Bld) [#/Vol] 1.38 10*3/uL Normal 1.00-4.00 [facility] Comment on above: Order Comment: Speci men Type: BLOOD SPECIMENOrdering Facility: [facility] Address: [address] [place] [address] Performed By: #### 5 7021-8 ####[facility] LABORATORYCLIA [id number] [address] [place] Lymphocytes/100 WBC (Bld) 23.7 % Normal [facility] Comment on above: Order Comment: Speci men Type: BLOOD SPECIMENOrdering Facility: [facility] Address: [address] [place] [address] Performed By: #### 5 7021-8 ####[facility] LABORATORYCLIA [id number] [address] MCH (RBC) [Entitic mass] 31.2 pg Normal 26.0-34.0 [facility] Comment on above: Order Comment: Speci men Type: BLOOD SPECIMENOrdering Facility: [facility] Address: [address] [place] [address] Performed By: #### 5 7021-8 ####[facility] LABORATORYCLIA [id number] [address] MCHC (RBC) [Mass/Vol] 33.5 g/dL Normal 30.5-36.0 [facility] Comment on above: Order Comment: Speci men Type: BLOOD SPECIMENOrdering Facility: [facility] Address: [address] [place] [address] Performed By: #### 5 7021-8 ####[facility] LABORATORYCLIA [id number] [address] MCV (RBC) [Entitic vol] 93.3 fL Normal 80.0-100.0 [facility] Comment on above: Order Comment: Speci men Type: BLOOD SPECIMENOrdering Facility: [facility] Address: [address] [place] [address] Performed By: #### 5 7021-8 ####[facility] LABORATORYCLIA [id number] [address] Monocytes (Bld) [#/Vol] 0.50 10*3/uL Normal <0.87 [facility] Comment on above: Order Comment: Speci men Type: BLOOD SPECIMENOrdering Facility: [facility] Address: [address] [place] [address] Performed By: #### 5 7021-8 ####[facility] LABORATORYCLIA [id number] [address] [place] Monocytes/100 WBC (Bld) 8.6 % Normal [facility] Comment on above: Order Comment: Speci men Type: BLOOD SPECIMENOrdering Facility: [facility] Address: [address] [place] [address] Performed By: #### 5 7021-8 ####[facility]ORATORYCLIA [id number] [address] [place] Neutrophils (Bld) [#/Vol] 3.31 10*3/uL Normal 1.45-7.50 [facility] Comment on above: Order Comment: Speci men Type: BLOOD SPECIMENOrdering Facility: [facility] Address: [address] [place] [address] Performed By: #### 5 7021-8 ####[facility]ORATORYCLIA [id number] [address] Neutrophils/100 WBC (Bld) 56.9 % Normal [facility] Comment on above: Order Comment: Speci men Type: BLOOD SPECIMENOrdering Facility: [facility] Address: [address] [place] [address] Performed By: #### 5 7021-8 ####[facility]ORATORYCLIA [id number] [address] [place] Nucleated RBC (Bld) [#/Vol] 0.10 10*3/uL High <0.01 [facility] Comment on above: Order Comment: Speci men Type: BLOOD SPECIMENOrdering Facility: [facility] Address: [address] [place] [address] Performed By: #### 5 7021-8 ####[facility]ORATORYCLIA [id number] [address] [place] Nucleated RBC/100 WBC (Bld) [Ratio] 1.7 /100 WBC Normal [facility] Comment on above: Order Comment: Speci men Type: BLOOD SPECIMENOrdering Facility: [facility] Address: [address] Performed By: #### 5 7021-8 ####[facility] LABORATORYCLIA [id number] [address] STATES [facility] Platelet mean volume (Bld) [Entitic vol] 9.7 fL Normal 9.0-12.7 [facility] Comment on above: Order Comment: Speci men Type: BLOOD SPECIMENOrdering Facility: [facility] Address: [address] [place] [address] Performed By: #### 5 7021-8 ####[facility] LABORATORYCLIA [id number] [address] [place] Platelets (Bld) [#/Vol] 209 10*3/uL Normal 150-400 [facility] Comment on above: Order Comment: Speci men Type: BLOOD SPECIMENOrdering Facility: [facility] Address: [address] [place] [address] Performed By: #### 5 7021-8 ####[facility] LABORATORYCLIA [id number] [place] [address] [place] RBC (Bld) [#/Vol] 2.69 10*6/uL Low 3.90-5.20 [facility] Comment on above: Order Comment: Speci men Type: BLOOD SPECIMENOrdering Facility: [facility] Address: [address] [place] [address] Performed By: #### 5 7021-8 ####[facility] LABORATORYCLIA [id number] [address] [place] WBC (Bld) [#/Vol] 5.82 10*3/uL Normal 3.70-11.00 [facility] Comment on above: Order Comment: Speci men Type: BLOOD SPECIMENOrdering Facility: [facility] Address: [address] [place] [address] Performed By: #### 5 7021-8 ####[facility] LABORATORYCLIA [id number] [address] [place] CONSULT PROGon 06-22-2022 CONSULT PROG HNO ID: [id number] Author: Eliza Martin APRN.SPONGE DIVER Service: Gastroenterology Author Type: Nurse Specialist Type: [...] stool softene (more content not included)... Normal [facility] Comprehensive metabolic 2000 panelon 06-22-2022 Albumin [Mass/Vol] 2.4 g/dL Low 3.9-4.9 [facility] Comment on above: Order Comment: Speci men Type: BLOOD SPECIMENOrdering Facility: [facility] Address: [address] [address] Performed By: #### 2 4323-8 ####[facility] LABORATORYCLIA [id number] [place] [address] [place] ALP [Catalytic activity/Vol] 129 U/L High 34-123 [facility] Comment on above: Order Comment: Speci men Type: BLOOD SPECIMENOrdering Facility: [facility] Address: [address] [address] Performed By: #### 2 4323-8 ####[facility] LABORATORYCLIA [id number] [place] [address] [place] ALT With P-5'-P [Catalytic activity/Vol] 21 U/L Normal 7-38 [facility] [facility] Comment on above: Order Comment: Speci men Type: BLOOD SPECIMENOrdering Facility: [facility] Address: [address] [place] [address] Performed By: #### 2 4323-8 ####[facility] LABORATORYCLIA [id number] [address] [place] Anion gap [Moles/Vol] 10 mmol/L Normal 9-18 [facility] Comment on above: Order Comment: Speci men Type: BLOOD SPECIMENOrdering Facility: [facility] Address: [address] [place] [address] Performed By: #### 2 4323-8 ####[facility] LABORATORYCLIA [id number] [address] AST With P-5'-P [Catalytic activity/Vol] 19 U/L Normal 13-35 [facility] Comment on above: Order Comment: Speci men Type: BLOOD SPECIMENOrdering Facility: [facility] Address: [address] [place] [address] Performed By: #### 2 4323-8 ####[facility] LABORATORYCLIA [id number] [address] [place] Bilirubin [Mass/Vol] 0.6 mg/dL Normal 0.2-1.3 [facility] Comment on above: Order Comment: Speci men Type: BLOOD SPECIMENOrdering Facility: [facility] Address: [address] [place] [address] Performed By: #### 2 4323-8 ####[facility] LABORATORYCLIA [id number] [address] OF [facility] Calcium [Mass/Vol] 8.6 mg/dL Normal 8.5-10.2 [facility] Comment on above: Order Comment: Speci men Type: BLOOD SPECIMENOrdering Facility: [facility] Address: [address] [address] Performed By: #### 2 4323-8 ####[facility] LABORATORYCLIA [id number] [address] [place] Chloride [Moles/Vol] 105 mmol/L Normal 97-105 [facility] Comment on above: Order Comment: Speci men Type: BLOOD SPECIMENOrdering Facility: [facility] Address: [address] [place] [address] Performed By: #### 2 4323-8 ####[facility] LABORATORYCLIA [id number] [address] [place] CO2 [Moles/Vol] 21 mmol/L Low 22-30 [facility] Comment on above: Order Comment: Speci men Type: BLOOD SPECIMENOrdering Facility: [facility] Address: [address] [place] [address] Performed By: #### 2 4323-8 ####[facility] LABORATORYCLIA [id number] [address] [facility] Creatinine [Mass/Vol] 0.88 mg/dL Normal 0.58-0.96 [facility] Comment on above: Order Comment: Speci men Type: BLOOD SPECIMENOrdering Facility: [facility] Address: [address] [place] [address] Performed By: #### 2 4323-8 ####[facility] LABORATORYCLIA [id number] [address] ESTIMATED GLOMERULAR FILTRATION RATE 66 mL/min/1.73m??? Normal >=60 [facility] Comment on above: Order Comment: Speci men Type: BLOOD SPECIMENOrdering Facility: [facility] Address: [address] [place] [address] Result Comment: Isa mated Glomerular Filtration Rate [...] By: #### 2 4323-8 ####[facility] LABORATORYCLIA [id number] [place] [address] [place] Glucose [Mass/Vol] 95 mg/dL Normal 74-99 [facility] Comment on above: Order Comment: Rhina mason Type: BLOOD SPECIMENOrdering Facility: [facility] Address: [address] [place] [address] Result Comment: The [place] Diabetes Association (ADA) provides guidance for cutoff [...] Standards of Medical Care in Diabetes 2016, [place] [employer]. Diabetes Care. 2016.39(Suppl 1). Performed By: #### 2 4323-8 ####[facility] LABORATORYCLIA [id number] [place] [address] [place] Potassium [Moles/Vol] 4.7 mmol/L Normal 3.7-5.1 [facility] Comment on above: Order Comment: Rhina mason Type: BLOOD SPECIMENOrdering Facility: [facility] Address: [address] [place] [address] Performed By: #### 2 4323-8 ####[facility] LABORATORYCLIA [id number] [place] [address] [place] Protein [Mass/Vol] 5.3 g/dL Low 6.3-8.0 [facility] Comment on above: Order Comment: Rhina mason Type: BLOOD SPECIMENOrdering Facility: [facility] Address: [address] [place] [address] Performed By: #### 2 4323-8 ####[facility]ITAL[facility] [id number] [address] [place] Sodium [Moles/Vol] 136 mmol/L Normal 136-144 [facility] Comment on above: Order Comment: Rhina mason Type: BLOOD SPECIMENOrdering Facility: [facility] Address: [address] [place] [address] Performed By: #### 2 4323-8 ####[facility] LABORATORYCLIA [id number] [address] STATES [facility] Urea nitrogen [Mass/Vol] 7 mg/dL Normal 7-21 [facility] Comment on above: Order Comment: Rhina mason Type: BLOOD SPECIMENOrdering Facility: [facility] Address: [address] [place] [address] Performed By: #### 2 4323-8 ####[facility] LABORATORYCLIA [id number] [address] [place] H. pylori IgG IA Qlon 2021 H. PYLORI IGG, QUAL Negative Normal Negative [facility] Comment on above: Order Comment: Rhina mason Type: BLOOD SPECIMENOrdering Facility: [facility] Address: [address] [place] [address] Result Comment: Shakeel ot exclude H. pylori infection if the specimen collected 3-4 weeks after onset of symptoms. Performed By: #### 1 7859-0 ####[facility] LABCLIA [id number] [facility] [id number] [place] PT panel Coag (PPP)on 2021 INR Coag (PPP) [Relative time] {INR} Low 0.9-1.3 [facility] Comment on above: Order Comment: Rhina mason Type: BLOOD SPECIMEN [facility] Address: [address] [place] [address] Result Comment: Mayra min K Antagonist (VKA) Therapeutic Range: INR 2 to 3 (Target INR of 2.5) Note: For patients treated with VKA drugs, such as warfarin, the [employer] 2012 Guideline recommends [...] Chest 2012, 141:7S-47S Daren RA, et al. [facility] 2017, 70: 252-289 Performed By: #### T SCR #### [facility] [place] [id number] [address] OF [facility] PT Coag (PPP) [Time] 9.9 s Normal 9.7-13.0 [facility] Comment on above: Order Comment: Speci men Type: BLOOD SPECIMEN [facility] Address: [address] [place], [place] [address] Performed By: #### T SCR #### [facility] CLIA [id number] [address] OF [facility] THERAPY NTon 06-22-2022 THERAPY NT HNO ID: [id number] Author: MAMIE Mortensen/Weston Service: Occupational Therapy Author Type: Occupational Therapist Type: Therapy (PT/OT/Speech/Resp) Filed: 06/22/2022 11:27 AM Note Text: Occupational Therapy Evaluation SERVICE DATE: 06/22/2022 SERVICE TIME: 1037 to 1105 ROOM: [place] [address] Recommended Discharge Disposition: Subacute/SNF Recommended Discharge Disposition [...] time Occupational Factors Life 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 Normal [facility] US ARTERIAL PVR LOWERon 12-0 US ARTERIAL PVR LOWER * * *Final Report* * * DATE OF EXAM: Jun 22 2022 7:43AM A2U 1107 - US ARTERIAL PVR LOWER / PROCEDURE REASON: Arterial embolism * * * * Physician Interpretation * * * * Non-Invasive Vascular Laboratory [facility] Lower Extremity Arterial Physiology Study Bilateral/Complete [...] all veins 06/16/22. Dopplers study was done. 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 Technologist: Azar Holcomb Gosia Ordering physician: DWAYNE ZAIDI Interpreting physician: Supriya Ponce MD Final (Updated) RP Research Environmental Scientist: IRENE Transcriarley Date/Time: Jun 22 2022 7:12A Dictated by : SUPRIYA PONCE MD This examination was interpreted and the report reviewed and electronically signed by: SUPRIYA PONCE MD on Jun 24 2022 1:27PM EST [id number] Normal [facility] aPTT PPPon 06-22-2022 aPTT Coag (PPP) [Time] 43.[address] High 23.0-32.4 [facility] Comment on above: Order Comment: Speci men Type: BLOOD SPECIMENOrdering Facility: [facility] Address: [address] [place] [phone] Performed By: #### 1 4979-9 ####[facility] LABORATORYCLIA [id number] [place] [address] [place] aPTT Coag (PPP) [Time] 25.6 s Normal 23.0-32.4 [facility] Comment on above: Order Comment: Speci men Type: BLOOD SPECIMEN [facility] Address: [place] [address] Performed By: #### T SCR #### [facility] CLIA [id number] 1 [place] [address] [place] ANES POSTPROC EVALon 022 ANES POSTPROC EVAL HNO ID: [id number] Author: Olu Vasquez MD Service: Anesthesiology Author Type: Physician Type: Anesthesia Postprocedure Evaluation Filed: 06/21/2022 3:20 PM Note Text: POST ANESTHESIA EVALUATION NOTE : 1940 Procedure Summary Date: 06/21/22 Room / Location: [facility] Anesthesia Start: 1134 Anesthesia Stop: 1158 Procedure: [...] June 21, 2022 TIME: 3:19 PM CSN: [id number] Normal [facility] ANES PRE-OPon 12-05-2022 [facility] PRE-OP HNO ID: [id number] Author: Olu Vasquez MD Service: Anesthesiology Author [...] Olu Dietrich (more content not included)... Normal [facility] CONSULT PROGon 06-21-2022 CONSULT PROG HNO ID: [id number] Author: Fidel Carmen APRN.SOAP TENDER Service: Wound/Ostomy Author Type: Nurse Practitioner Type: Consult Progress Note Filed: 06/21/2022 1:41 PM Note Text: WOUND CARE SERVICE CONSULT SUBWAY CAR REPAIRER NOTE SERVICE DATE: 06/21/2022 SERVICE TIME: 941 TIME SPENT (minutes): 30 REASON FOR CONSULT: MAD buttocks, atypical wound Right middle finger. CHIEF COMPLAINT: Right middle finger Subjective HISTORY OF PRESENT ILLNESS: Ms. Jose Alberto Castillo is a 81 year old female who is seen today with Delia Bruno, Wound/leather cleaner, and presented to hospital with complaints of [...] 06/21/2022 9:57 AM Wound Image Site Assessment [place];Red (small open area noted) Allie-Wound Assessment [place];Intact Drainage Amount None Odor None Treatments Cleansed;Protective Barrier Ointment Dressing Foam- Adhesive Dressing Changed Changed Dressing Status Clean;Dry;Intact Active Orders Date Order Priority Status Authorizing Provider 06/21/22 1248 DRESSING CARE (SPECIFY) ([place]) Routine Active Fidel Carmen APRN.SOAP TENDER - Specify:: Apply allevyn foam to coccyx, peel down every shift to assess skin and to apply zinc oxide, change every 3 days or if soiled. 06/21/22 1248 zinc oxide 20 % Active Fidel Carmen APRN.SOAP TENDER Wound 06/21/22 0948 Atypical Wound Finger (Comment which one) Right (Active) Assessments 06/21/2022 9:48 AM Wound Image Site Assessment [place];White (shiney) Allie-Wound Assessment Intact Shape irregular Drainage Description Sanguineous (intermittent, per pt.) Drainage Amount None Odor None Treatments Cleansed Dressing Xeroform;Gauze (more content not included)... [facility] Hemoglobin (Bld) [Mass/Vol] 6.9 g/dL Low 11.5-15.5 [facility] Comment on above: Order Comment: Speci men Type: BLOOD SPECIMENOrdering Facility: [facility] Address: [place] [address] Performed By: #### 3 2355-0 #### [facility] CLIA [id number] [address] [id number] [facility] OPERATIVE NOon 06-21-2022 OPERATIVE NO HNO ID: [id number] Author: Sim Elizabeth MD Service: Gastroenterology Author Type: Physician Type: Operative Report Filed: 06/21/2022 12:01 PM Note Text: OPERATIVE/PROCEDURE REPORT LOG ID: [id number] Surgery/Procedure Date: 06/21/2022 Incision/Procedure Start Time: 11:44 AM Incision Close/Procedure End Time: 11:49 AM Surgeon(s)/Proceduralis t(s) and Turf Sales Person(s): Surgeon(s) and Role: * Sim Elizabeth MD [...] 21, 2022 TIME: 11:53 AM PAGER/CONTACT #: [phone] Normal [facility] THERAPY NTon 06-21-2022 THERAPY NT HNO ID: [id number] Author: Miranda Burroughs PT Service: Physical Therapy Author Type: Physical Therapist Type: Therapy (PT/OT/Speech/Resp) Filed: 06/21/2022 10:12 AM Note Text: Physical Therapy Evaluation SERVICE DATE: 06/21/2022 SERVICE TIME: 32 to 0855 ROOM: [place] [address] Recommended Discharge Disposition: Subacute/SNF Recommended Discharge Disposition [...] gait and mobility-other Interventions Provided: Evaluation;Therapeutic Activity (69476) $ Evaluation-Moderate (90134) Billed Units: 1 unit Therapeutic Activity (62594) Treatment Minutes: 8 $ Therapeutic Activity (72916) Billed Units: 1 unit Educated pt on [...] therapeutic skills (more content not included)... Normal [facility] TYPE + SCREENon 06-21-2022 ABO AB Normal [facility] Comment on above: Order Comment: Speci men Type: BLOOD SPECIMEN [facility] Address: [address] [place] [address] Performed By: #### T SCR #### [facility] CLIA [id number] [address] [place] [address] HISTORICAL AB SCR STATUS Negative [facility] Comment on above: Order Comment: Speci men Type: BLOOD SPECIMEN [facility] Address: [address] [place] [address] Performed By: #### T SCR #### [facility] CLIA [id number] [address] [place] [address] Rh Nom (Bld) Positive [facility] Comment on above: Order Comment: Speci men Type: BLOOD SPECIMEN [facility] Address: [address] [address] Performed By: #### T SCR #### [facility] CLIA [id number] [address] TYPE AND SCREEN EXPIRATION 06/24/2022 23:59 [facility] Comment on above: Order Comment: Speci men Type: BLOOD SPECIMEN [facility] Address: [address] [address] Performed By: #### T SCR #### [facility] CLIA [id number] [address] [facility] ALLIED HEALTHon 06-20-2022 ALLIED HEALTH HNO ID: [id number] Author: RT Tamica(Tiffanie) Service: Radiology Author Type: [...] June 20, 2022 TIME: 3:15 PM Normal [facility] Basic metabolic 2000 panelon 06-20-2022 Anion gap [Moles/Vol] 8 mmol/L Low 9-18 [facility] Comment on above: Order Comment: Speci men Type: BLOOD SPECIMENOrdering Facility: [facility] Address: [address] [place] [address] Performed By: #### 2 4321-2 ####[facility]ORATORYCLIA [id number] [address] [place] Calcium [Mass/Vol] 8.5 mg/dL Normal 8.5-10.2 [facility] Comment on above: Order Comment: Speci men Type: BLOOD SPECIMENOrdering Facility: [facility] Address: [address] [place] [address] Performed By: #### 2 4321-2 ####[facility] LABORATORYCLIA [id number] [address] [place] Chloride [Moles/Vol] 106 mmol/L High 97-105 [facility] Comment on above: Order Comment: Speci men Type: BLOOD SPECIMENOrdering Facility: [facility] Address: [address] [place] [address] Performed By: #### 2 4321-2 ####[facility]ORATORYCLIA [id number] [address] [place] CO2 [Moles/Vol] 22 mmol/L Normal 22-30 [facility] Comment on above: Order Comment: Speci men Type: BLOOD SPECIMENOrdering Facility: [facility] Address: [address] [place] [address] Performed By: #### 2 4321-2 ####[facility]ORATORYCLIA [id number] [address] [place] Creatinine [Mass/Vol] 0.84 mg/dL Normal 0.58-0.96 [facility] Comment on above: Order Comment: Speci men Type: BLOOD SPECIMENOrdering Facility: [facility] Address: [address] [place], [place] [address] Performed By: #### 2 4321-2 ####[facility] LABORATORYCLIA [id number] [place] [address] [place] ESTIMATED GLOMERULAR FILTRATION RATE 69 mL/min/1.73m??? Normal >=60 [facility] Comment on above: Order Comment: Speci isabella Type: BLOOD SPECIMENOrdering Facility: [facility] Address: [address] [place] [place] [address] Result Comment: Isa mated Glomerular Filtration Rate [...] actual GFR. Performed By: #### 2 4321-2 ####[facility]ITAL[facility] [id number] [place] [address] [place] Glucose [Mass/Vol] 92 mg/dL Normal 74-99 [facility] Comment on above: Order Comment: Rhina mason Type: BLOOD SPECIMENOrdering Facility: [facility] Address: [address] [place] [address] Result Comment: The [place] Diabetes Association (ADA) provides guidance for cutoff [...] Standards of Medical Care in Diabetes 2016, [place] [employer] Association. Diabetes Care. 2016.39(Suppl 1). Performed By: #### 2 4321-2 ####[facility] LABORATORYCLIA [id number] [place] [id number] [place] Potassium [Moles/Vol] 4.7 mmol/L Normal 3.7-5.1 [facility] Comment on above: Order Comment: Speci men Type: BLOOD SPECIMENOrdering Facility: [facility] Address: [address] [address] Performed By: #### 2 4321-2 ####[facility]ORATORYCLIA [id number] [address] STATES OF [facility] Sodium [Moles/Vol] 136 mmol/L Normal 136-144 [facility] Comment on above: Order Comment: Speci men Type: BLOOD SPECIMENOrdering Facility: [facility] Address: [address] [place] [address] Performed By: #### 2 4321-2 ####[facility] LABORATORYCLIA [id number] [address] STATES OF [facility] Urea nitrogen [Mass/Vol] 16 mg/dL Normal 7-21 [facility] Comment on above: Order Comment: Speci men Type: BLOOD SPECIMENOrdering Facility: [facility] Address: [address] [place] [address] Performed By: #### 2 4321-2 ####[facility] LABORATORYCLIA [id number] [address] STATES OF [facility] CBC panel Auto (Bld)on 06-20 Erythrocyte distribution width (RBC) [Ratio] 15.9 % High 11.5-15.0 [facility] Comment on above: Order Comment: Speci men Type: BLOOD SPECIMENOrdering Facility: [facility] Address: [address] [place] [address] Performed By: #### 3 2355-0 #### [facility] CLIA [id number] [address] Hematocrit (Bld) [Volume fraction] 23.9 % Low 36.0-46.0 [facility] Comment on above: Order Comment: Speci men Type: BLOOD SPECIMENOrdering Facility: [facility] Address: [address] [place] [address] Performed By: #### 3 2355-0 #### [facility] CLIA [id number] [address] Hemoglobin (Bld) [Mass/Vol] 7.8 g/dL Low 11.5-15.5 [facility] Comment on above: Order Comment: Speci men Type: BLOOD SPECIMENOrdering Facility: [facility] Address: [address] [place] [address] Performed By: #### 3 2355-0 #### [facility] CLIA [id number] [address] MCH (RBC) [Entitic mass] 30.7 pg Normal 26.0-34.0 [facility] Comment on above: Order Comment: Speci men Type: BLOOD SPECIMENOrdering Facility: [facility] Address: [address] [place] [address] Performed By: #### 3 2355-0 #### [facility] CLIA [id number] [address] MCHC (RBC) [Mass/Vol] 32.6 g/dL Normal 30.5-36.0 [facility] Comment on above: Order Comment: Speci men Type: BLOOD SPECIMENOrdering Facility: [facility] Address: [address] [place] [address] Performed By: #### 3 2355-0 #### [facility] CLIA [id number] [address] MCV (RBC) [Entitic vol] 94.1 fL Normal 80.0-100.0 [facility] Comment on above: Order Comment: Speci men Type: BLOOD SPECIMENOrdering Facility: [facility] Address: [address] [place] [address] Performed By: #### 3 2355-0 #### [facility] CLIA [id number] [address] Nucleated RBC (Bld) [#/Vol] 0.09 10*3/uL High <0.01 [facility] Comment on above: Order Comment: Speci men Type: BLOOD SPECIMENOrdering Facility: [facility] Address: [address] [place] [address] Performed By: #### 3 2355-0 #### [facility] CLIA [id number] [address] [place] Platelet mean volume (Bld) [Entitic vol] 9.8 fL Normal 9.0-12.7 [facility] Comment on above: Order Comment: Speci men Type: BLOOD SPECIMENOrdering Facility: [facility] Address: [address] [place] [address] Performed By: #### 3 2355-0 #### [facility] CLIA [id number] [address] [place] Platelets (Bld) [#/Vol] 233 10*3/uL Normal 150-400 [facility] Comment on above: Order Comment: Speci men Type: BLOOD SPECIMENOrdering Facility: [facility] Address: [address] [place] [address] Performed By: #### 3 2354-0 #### [facility] CLIA [id number] [address] [place] RBC (Bld) [#/Vol] 2.54 10*6/uL Low 3.90-5.20 [facility] Comment on above: Order Comment: Speci men Type: BLOOD SPECIMENOrdering Facility: [facility] Address: [address] [place] [address] Performed By: #### 3 5-0 #### [facility] CLIA [id number] [address] [place] WBC (Bld) [#/Vol] 9.90 10*3/uL Normal 3.70-11.00 [facility] Comment on above: Order Comment: Speci men Type: BLOOD SPECIMENOrdering Facility: [facility] Address: [address] [place] [address] Performed By: #### 3 2355-0 #### [facility] CLIA [id number] 1 [place] [address] [place] CONSULTon 06-20-2022 CONSULT HNO ID: [id number] Author: Christine Edouard MD Service: ? Author [...] needed woul (more content not included)... Normal [facility] CT ABD/PEL W IVCONon 022 CT ABD/PEL W IVCON * * *Final Report* * * DATE OF EXAM: Jun 20 2022 2:57PM [facility] 0530 - CT ABD/PEL W [...] bilateral pleural effusions, larger on the right. Sound Technician Supervisor (topogram) images: No additional findings. IMPRESSION: Acute sigmoid diverticulitis. No evidence of perforation or diverticular abscess. Consolidation and volume loss with bronchial wall thickening in both lower lobes and right middle lobe. Small bilateral pleural effusions, larger on the right. Diffuse subcutaneous edema of the left flank extending into the thigh. Bilateral renal cortical scarring and small cysts. Atherosclerotic arterial and aortic calcifications. Research Environmental Scientist: DEVEN Transcribe Date/Time: Jun 20 2022 3:18P Dictated by : DI MAYES MD This examination was interpreted and the report reviewed and electronically signed by: DI MAYES MD on Jun 20 2022 3:24PM EST [id number] Normal [facility] Hgb Bld-mCncon 06-20-2022 Hemoglobin (Bld) [Mass/Vol] 7.0 g/dL Low 11.5-15.5 [facility] Comment on above: Order Comment: Speci men Type: BLOOD SPECIMEN Ordering Facility: [facility] Address: [address] [place] [id number] Performed By: #### T SCR #### [facility] CLIA [id number] 1 [place] [address] [facility] 06-19-2022 ALLIED HEALTH HNO ID: [id number] Author: Parul Ryan RN Service: Infection Prevention Author Type: ? Type: Allied Health Filed: 06/19/2022 5:49 PM Note Text: INFECTION PREVENTION NOTE Admission Date: 06/16/2022 Patient meets ?COVID Resolved? criteria and isolation has been discontinued as per [facility] guidance. SIGNATURE: Parul Ryan RN PATIENT NAME: Mel Castillo DATE: June 19, 2022 TIME: 5:49 PM PAGER/CONTACT #: Infection Prevention, [id number] Infection Prevention after hours/weekend pager: [phone] Normal [facility] Basic metabolic 2000 panelon 06-19-2022 Anion gap [Moles/Vol] 5 mmol/L Low 9-18 [facility] Comment on above: Order Comment: Speci men Type: BLOOD SPECIMENOrdering Facility: [facility] Address: [address] [place] [address] Performed By: #### 3 2355-0 #### [facility] CLIA [id number] 1 [place] [address] [place] Calcium [Mass/Vol] 8.1 mg/dL Low 8.5-10.2 [facility] Comment on above: Order Comment: Speci men Type: BLOOD SPECIMENOrdering Facility: [facility] Address: [address] [place] [address] Performed By: #### 3 2355-0 #### [facility] CLIA [id number] 1 [place] [address] [place] Chloride [Moles/Vol] 105 mmol/L Normal 97-105 [facility] Comment on above: Order Comment: Speci men Type: BLOOD SPECIMENOrdering Facility: [facility] Address: [address] [place] [address] Performed By: #### 3 2355-0 #### [facility] CLIA [id number] 1 [place] [address] [place] CO2 [Moles/Vol] 23 mmol/L Normal 22-30 [facility] Comment on above: Order Comment: Speci men Type: BLOOD SPECIMENOrdering Facility: [facility] Address: [address] [address] Performed By: #### 3 2355-0 #### [facility] CLIA [id number] [address] Creatinine [Mass/Vol] 0.94 mg/dL Normal 0.58-0.96 [facility] Comment on above: Order Comment: Speci men Type: BLOOD SPECIMENOrdering Facility: [facility] Address: [address] [address] Performed By: #### 3 2355-0 #### [facility] CLIA [id number] [address] ESTIMATED GLOMERULAR FILTRATION RATE 61 mL/min/1.73m??? Normal >=60 [facility] Comment on above: Order Comment: Speci men Type: BLOOD SPECIMENOrdering Facility: [facility] Address: [address] [place] [address] Result Comment: Isa mated Glomerular Filtration Rate [...] GFR. Performed By: #### 3 2355-0 #### [facility] CLIA [id number] [address] Glucose [Mass/Vol] 115 mg/dL High 74-99 [facility] Comment on above: Order Comment: Speci isabella Type: BLOOD SPECIMENOrdering Facility: [facility] Address: [address] [place] [address] Result Comment: The [employer] Diabetes Association (ADA) provides guidance for cutoff [...] Standards of Medical Care in Diabetes 2016, [employer] Diabetes Association. Diabetes Care. 2016.39(Suppl 1). Performed By: #### 3 2355-0 #### [facility] CLIA [id number] [address] Potassium [Moles/Vol] 4.4 mmol/L Normal 3.7-5.1 [facility] Comment on above: Order Comment: Speci men Type: BLOOD SPECIMENOrdering Facility: [facility] Address: [address] [place] [address] Performed By: #### 3 2355-0 #### [facility] CLIA [id number] [address] Sodium [Moles/Vol] 133 mmol/L Low 136-144 [facility] Comment on above: Order Comment: Speci men Type: BLOOD SPECIMENOrdering Facility: [facility] Address: [address] [place] [address] Performed By: #### 3 2355-0 #### [facility] CLIA [id number] [address] Urea nitrogen [Mass/Vol] 22 mg/dL High 7-21 [facility] Comment on above: Order Comment: Speci men Type: BLOOD SPECIMENOrdering Facility: [facility] Address: [address] [place] [address] Performed By: #### 3 2355-0 #### [facility] CLIA [id number] [address] CBC panel Auto (Bld)on 06-19 Erythrocyte distribution width (RBC) [Ratio] 15.6 % High 11.5-15.0 [facility] Comment on above: Order Comment: Speci men Type: BLOOD SPECIMENOrdering Facility: [facility] Address: [address] [address] Performed By: #### 5 8410-2 ####[facility] LABORATORYCLIA [id number] [address] Hematocrit (Bld) [Volume fraction] 24.0 % Low 36.0-46.0 [facility] Comment on above: Order Comment: Speci men Type: BLOOD SPECIMENOrdering Facility: [facility] Address: [address] [place] [address] Performed By: #### 5 8410-2 ####[facility] LABORATORYCLIA [id number] [address] OF [facility] Hemoglobin (Bld) [Mass/Vol] 7.6 g/dL Low 11.5-15.5 [facility] Comment on above: Order Comment: Speci men Type: BLOOD SPECIMENOrdering Facility: [facility] Address: [address] [place] [address] Performed By: #### 5 8410-2 ####[facility] LABORATORYCLIA [id number] [address] STATES OF [facility] MCH (RBC) [Entitic mass] 29.9 pg Normal 26.0-34.0 [facility] Comment on above: Order Comment: Speci men Type: BLOOD SPECIMENOrdering Facility: [facility] Address: [address] [place] [address] Performed By: #### 5 8410-2 ####[facility] LABORATORYCLIA [id number] [address] [place] MCHC (RBC) [Mass/Vol] 31.7 g/dL Normal 30.5-36.0 [facility] Comment on above: Order Comment: Speci men Type: BLOOD SPECIMENOrdering Facility: [facility] Address: [address] [place] [address] Performed By: #### 5 8410-2 ####[facility] LABORATORYCLIA [id number] [place] [address] [place] MCV (RBC) [Entitic vol] 94.5 fL Normal 80.0-100.0 [facility] Comment on above: Order Comment: Speci men Type: BLOOD SPECIMENOrdering Facility: [facility] Address: [address] [place] [address] Performed By: #### 5 8410-2 ####[facility] LABORATORYCLIA [id number] [place] [address] [place] Nucleated RBC (Bld) [#/Vol] 0.04 10*3/uL High <0.01 [facility] Comment on above: Order Comment: Speci men Type: BLOOD SPECIMENOrdering Facility: [facility] Address: [address] [place] [address] Performed By: #### 5 8410-2 ####[facility] LABORATORYCLIA [id number] [place] [address] [place] Platelet mean volume (Bld) [Entitic vol] 10.0 fL Normal 9.0-12.7 [facility] Comment on above: Order Comment: Speci men Type: BLOOD SPECIMENOrdering Facility: [facility] Address: [address] [address] Performed By: #### 5 8410-2 ####[facility] LABORATORYCLIA [id number] [address] [place] Platelets (Bld) [#/Vol] 219 10*3/uL Normal 150-400 [facility] Comment on above: Order Comment: Speci men Type: BLOOD SPECIMENOrdering Facility: [facility] Address: [address] [address] Performed By: #### 5 8410-2 ####[facility] LABORATORYCLIA [id number] [place] [address] [place] RBC (Bld) [#/Vol] 2.54 10*6/uL Low 3.90-5.20 [facility] Comment on above: Order Comment: Speci men Type: BLOOD SPECIMENOrdering Facility: [facility] Address: [address] [address] Performed By: #### 5 8410-2 ####[facility] LABORATORYCLIA [id number] [address] WBC (Bld) [#/Vol] 8.55 10*3/uL Normal 3.70-11.00 [facility] Comment on above: Order Comment: Speci men Type: BLOOD SPECIMENOrdering Facility: [facility] Address: [address] [place] [address] Performed By: #### 5 8410-2 ####[facility] LABORATORYCLIA [id number] [address] [place] Hemoccult Stl Ql IAon 2021 Lower GI hemoglobin IA Ql (Stl) Positive Abnormal Negative [facility] Comment on above: Order Comment: Speci men Type: BLOOD SPECIMEN Ordering Facility: [facility] Address: [address] [place] [address] Performed By: #### T SCR #### [facility] CLIA [id number] [address] [place] Hgb Bld-mCncon 06-19-2022 Hemoglobin (Bld) [Mass/Vol] 7.6 g/dL Low 11.5-15.5 [facility] Comment on above: Order Comment: Speci men Type: BLOOD SPECIMENOrdering Facility: [facility] Address: [address] [place] [address] Performed By: #### 7 18-7 ####[facility] LABORATORYCLIA [id number] [address] [place] Magnesium SerPl-mCncon 06-19 Magnesium [Mass/Vol] 1.9 mg/dL Normal 1.7-2.3 [facility] Comment on above: Order Comment: Speci men Type: BLOOD SPECIMENOrdering Facility: [facility] Address: [address] [place] [address] Performed By: #### 3 2355-0 #### [facility] CLIA [id number] [address] [place] OPERATIVE NOon 06-19-2022 OPERATIVE NO HNO ID: [id number] Author: Frida Rodriguez MD Service: Vascular Surgery Author Type: Physician Type: Operative Report Filed: 06/19/2022 2:59 PM Note Text: [facility] - Operative Report MEL GUADARRAMA : 1940 AGE: 81. SEX: F PATIENT TYPE: I HOSP SVC: ICU LOCATION: [facility] ATTENDING PHYSICIAN: DWAYNE ZAIDI [facility] NUMBER: [id number] DATE OF SURGERY/PROCEDURE: 06/16/2022 INCISION/PROCEDURE START TIME: 5:01 PM INCISION CLOSE/PROCEDURE END TIME: 6:58 PM PREOPERATIVE DIAGNOSIS: Left lower extremity deep vein thrombosis. POSTOPERATIVE DIAGNOSIS: Left lower extremity deep vein thrombosis. SURGEON: Frida Rodriguez MD CUSTOMER SERVICE ANALYST: Resident, Emanuel Hull SURGERY/PROCEDURE: Venogram with intravascular [...] micropuncture needle and serially upsized to a 5-Senegalese sheath. A venogram was then performed, which [...] time, the sheath was upsized to an 8-Senegalese sheath. An intravascular ultrasound was performed. This [...] unit for further monitoring. Frida Rodriguez MD LM:[id number] /[id number] Normal [facility] Phosphate SerPl-mCncon 06-19 Phosphate [Mass/Vol] 2.4 mg/dL Low 2.7-4.8 [facility] Comment on above: Order Comment: Speci men Type: BLOOD SPECIMENOrdering Facility: [facility] Address: [address] [place] [address] Performed By: #### 3 2355-0 #### [facility] CLIA [id number] [address] [place] [address] aPTT PPPon 06-19-2022 aPTT Coag (PPP) [Time] 46.9 s High 23.0-32.4 [facility] Comment on above: Order Comment: Speci men Type: BLOOD SPECIMENOrdering Facility: [facility] Address: [address] [place] [address] Performed By: #### 1 4979-9 ####[facility] LABORATORYCLIA [id number] [address] aPTT Coag (PPP) [Time] 83.8 s High 23.0-32.4 [facility] Comment on above: Order Comment: Speci men Type: BLOOD SPECIMENOrdering Facility: [facility] Address: [address] [address] Performed By: #### 3 2355-0 #### [facility] CLIA [id number] [address] [place] [address] OF [facility] Basic metabolic 2000 panelon 06-18-2022 Anion gap [Moles/Vol] 10 mmol/L Normal 9-18 [facility] Comment on above: Order Comment: Speci men Type: BLOOD SPECIMENOrdering Facility: [facility] Address: [address] [place], [place] [phone] Performed By: #### 2 4321-2, 17064-5, , 2776-07 ####[facility] LABORATORYCLIA [id number] [place] [address] [place] Calcium [Mass/Vol] 8.0 mg/dL Low 8.5-10.2 [facility] Comment on above: Order Comment: Speci men Type: BLOOD SPECIMENOrdering Facility: [facility] Address: [address] [address] Performed By: #### 2 4321-2, 65310-5, , 2776-07 ####[facility] LABORATORYCLIA [id number] [place] [address] [place] Chloride [Moles/Vol] 102 mmol/L Normal 97-105 [facility] Comment on above: Order Comment: Speci men Type: BLOOD SPECIMENOrdering Facility: [facility] Address: [address] [place] [address] Performed By: #### 2 4321-2, 63942-4, , 2776-07 ####[facility] LABORATORYCLIA [id number] [place] [address] [place] CO2 [Moles/Vol] 21 mmol/L Low 22-30 [facility] Comment on above: Order Comment: Speci men Type: BLOOD SPECIMENOrdering Facility: [facility] Address: [address] [address] Performed By: #### 2 4321-2, 14913-6, , 2776-07 ####[facility] LABORATORYCLIA [id number] [place] [address] [place] Creatinine [Mass/Vol] 1.17 mg/dL High 0.58-0.96 [facility] Comment on above: Order Comment: Speci men Type: BLOOD SPECIMENOrdering Facility: [facility] Address: [address] [place] [address] Performed By: #### 2 4321-2, 53765-2, , 2776-07 ####[facility] [id number] [address] OF [facility] ESTIMATED GLOMERULAR FILTRATION RATE 47 mL/min/1.73m??? Low >=60 [facility] Comment on above: Order Comment: Rhina mason Type: BLOOD SPECIMENOrdering Facility: [facility] Address: [address] [place] [address] Result Comment: Isa mated Glomerular Filtration Rate [...] actual GFR. Performed By: #### 2 4321-2, 59276-8, , 2776-07 ####[facility]ITALIA [id number] [address] OF [facility] Glucose [Mass/Vol] 112 mg/dL High 74-99 [facility] Comment on above: Order Comment: Rhina mason Type: BLOOD SPECIMENOrdering Facility: [facility] Address: [address] [place] [address] Result Comment: The [place] Diabetes Association (ADA) provides guidance for cutoff [...] Standards of Medical Care in Diabetes 2016, [place] Diabetes Association. Diabetes Care. 2016.39(Suppl 1). Performed By: #### 2 4321-2, 73226-6, , 2776-07 ####[facility] LABORATORYCLIA [id number] [address] [place] Potassium [Moles/Vol] 4.4 mmol/L Normal 3.7-5.1 [facility] Comment on above: Order Comment: Speci men Type: BLOOD SPECIMENOrdering Facility: [facility] Address: [address] [place] [address] Performed By: #### 2 4321-2, 38987-0, , 2776- ####[facility] LABORATORYCLIA [id number] [address] STATES OF [facility] Sodium [Moles/Vol] 133 mmol/L Low 136-144 [facility] Comment on above: Order Comment: Speci men Type: BLOOD SPECIMENOrdering Facility: [facility] Address: [address] [place] [address] Performed By: #### 2 4321-2, 20503-8, , 2776- ####[facility]ITALCL[facility] [id number] [address] STATES [facility] Urea nitrogen [Mass/Vol] 25 mg/dL High 7-21 [facility] Comment on above: Order Comment: Speci men Type: BLOOD SPECIMENOrdering Facility: [facility] Address: [address] [place] [address] Performed By: #### 2 4321-2, 06018-8, , 2776-1 ####[facility] LABORATORYCLIA [id number] [address] STATES OF [facility] CBC panel Auto (Bld)on 06-18 Erythrocyte distribution width (RBC) [Ratio] 15.6 % High 11.5-15.0 [facility] Comment on above: Order Comment: Speci men Type: BLOOD SPECIMENOrdering Facility: [facility] Address: [address] [place] [address] Performed By: #### 5 8410-2 ####[facility] LABORATORYCLIA [id number] [address] Hematocrit (Bld) [Volume fraction] 26.8 % Low 36.0-46.0 [facility] Comment on above: Order Comment: Speci men Type: BLOOD SPECIMENOrdering Facility: [facility] Address: [address] [place] [address] Performed By: #### 5 8410-2 ####[facility] LABORATORYCLIA [id number] [address] STATES OF [facility] Hemoglobin (Bld) [Mass/Vol] 8.5 g/dL Low 11.5-15.5 [facility] Comment on above: Order Comment: Speci men Type: BLOOD SPECIMENOrdering Facility: [facility] Address: [address] [place] [address] Performed By: #### 5 8410-2 ####[facility] LABORATORYCLIA [id number] [address] [place] MCH (RBC) [Entitic mass] 30.1 pg Normal 26.0-34.0 [facility] Comment on above: Order Comment: Speci men Type: BLOOD SPECIMENOrdering Facility: [facility] Address: [address] [place] [address] Performed By: #### 5 8410-2 ####[facility] LABORATORYCLIA [id number] [address] [place] MCHC (RBC) [Mass/Vol] 31.7 g/dL Normal 30.5-36.0 [facility] Comment on above: Order Comment: Speci men Type: BLOOD SPECIMENOrdering Facility: [facility] Address: [address] [place] [address] Performed By: #### 5 8410-2 ####[facility] LABORATORYCLIA [id number] [address] [place] MCV (RBC) [Entitic vol] 95.0 fL Normal 80.0-100.0 [facility] Comment on above: Order Comment: Speci men Type: BLOOD SPECIMENOrdering Facility: [facility] Address: [address] [place] [address] Performed By: #### 5 8410-2 ####[facility] LABORATORYCLIA [id number] [place] [address] [place] Nucleated RBC (Bld) [#/Vol] 0.03 10*3/uL High <0.01 [facility] Comment on above: Order Comment: Speci men Type: BLOOD SPECIMENOrdering Facility: [facility] Address: [address] [place] [address] Performed By: #### 5 8410-2 ####[facility] LABORATORYCLIA [id number] [address] [place] Platelet mean volume (Bld) [Entitic vol] 10.2 fL Normal 9.0-12.7 [facility] Comment on above: Order Comment: Speci men Type: BLOOD SPECIMENOrdering Facility: [facility] Address: [address] [place] [address] Performed By: #### 5 8410-2 ####[facility] LABORATORYCLIA [id number] [address] [place] Platelets (Bld) [#/Vol] 234 10*3/uL Normal 150-400 [facility] Comment on above: Order Comment: Speci men Type: BLOOD SPECIMENOrdering Facility: [facility] Address: [address] [place] [address] Performed By: #### 5 8410-2 ####[facility] LABORATORYCLIA [id number] [address] [place] RBC (Bld) [#/Vol] 2.82 10*6/uL Low 3.90-5.20 [facility] Comment on above: Order Comment: Speci men Type: BLOOD SPECIMENOrdering Facility: [facility] Address: [address] [place] [address] Performed By: #### 5 8410-2 ####[facility] LABORATORYCLIA [id number] [address] [place] WBC (Bld) [#/Vol] 8.77 10*3/uL Normal 3.70-11.00 [facility] Comment on above: Order Comment: Speci men Type: BLOOD SPECIMENOrdering Facility: [facility] Address: [facility] [address] [id number] Performed By: #### 5 8410-2 ####[facility] LABORATORYCLIA [id number] [place] [address] [place] [facility] CONSULT PROGon 06-18-2022 CONSULT PROG HNO ID: [id number] Author: Jessica Colmenares APRN.SOAP TENDER Service: Cardiovascular Medicine Author Type: Nurse Practitioner Type: Consult Progress Note Filed: 06/18/2022 2:46 PM Note Text: The ECHO reviewed, EF 59%. No significant valvular abnormalities. Chart reviewed, no further recommendations. Thank you, Jessica Colmenares APRN.SOAP TENDER Normal [facility] CONSULT PROG HNO ID: [id number] Author: Cirilo Yip RPh Service: Pharmacy Author [...] [facility] CONSULT PROG HNO ID: [id number] Author: Nimo Arzola MD Service: General Surgery [...] 06/17/22699 - 06/18/2265806/18/22699 - 06/19/22 0659 Shift 3729-0424 5668-2432 1614-6347 24 Hour Total 6892-6133 6422-4587 2715-0399 24 Hour Total INTAKE IV 350 15 365 Volume (mL) 15 15 Volume (mL) (lactated ringers iv infusion) 350 350 Shift Total 350 15 365 OUTPUT Urine 5230 101 8526 Void (ml) 1450 1450 Output ( External Collection Device 06/16/22 2331) 400 400 # of BMs Stool Incontinence 1 x 1 x Number of BMs 1 x 1 x Shift Total 6146 845 9595 Weight (kg) 71.2 71.2 71.2 71.2 71.2 [...] Hospital Course/Operatio (more content not included)... Normal [facility] Lipid 1996 panelon Cholesterol [Mass/Vol] 139 mg/dL Normal <200 [facility] Comment on above: Order Comment: Rhina mason Type: BLOOD SPECIMENOrdering Facility: [facility] Address: [address] [place] [address] Result Comment: <200 mg/dL, Desirable 200-239 mg/dL, Borderline high >239 mg/dL, High Performed By: #### 2 4321-2, 47318-9, , 2776-07 ####[facility] LABORATORYCLIA [id number] [address] OF [facility] Cholesterol in HDL [Mass/Vol] 56 mg/dL Normal >39 [facility] Comment on above: Order Comment: Rhina mason Type: BLOOD SPECIMENOrdering Facility: [facility] Address: [address] [place] [address] Result Comment: 40-5 9 mg/dL, Acceptable >59 mg/dL, High: Negative risk factor for coronary heart disease <40 mg/dL, Low: Positive risk factor for coronary heart disease Performed By: #### 2 4321-2, 43821-1, , 2776-07 ####[facility] LABORATORYCLIA [id number] [address] OF [facility] Cholesterol in LDL [Mass/Vol] 64 mg/dL Normal <100 [facility] Comment on above: Order Comment: Rhina mason Type: BLOOD SPECIMENOrdering Facility: [facility] Address: [address] [place] [address] Result Comment: <100 mg/dL, Optimal 100-129 mg/dL, Near optimal/above optimal 130-159 mg/dL, Borderline high 160-189 mg/dL, High >189 mg/dL, Very high Secondary prevention optimal LDL Cholesterol levels are recommended to be < 70 mg/dL Performed By: #### 2 4321-2, 26548-6, , 2776-07 ####[facility] LABORATORYCLIA [id number] [address] STATES OF [facility] Cholesterol in LDL/Cholesterol in HDL [Mass ratio] 1.14 {ratio} Normal <2.54 [facility] Comment on above: Order Comment: Speci men Type: BLOOD SPECIMENOrdering Facility: [facility] Address: [address] [place] [address] Result Comment: Refe rence: 1. National Cholesterol Education Program ATP III Guideline At-A-Glance Quick Desk Reference: National Heart, Lung, and Blood [place]. National Institutes of Health. 2001: NIH Publication No. 01-3305. 2. An International Atherosclerosis Society position paper: global recommendations for the management of dyslipidemia: executive summary, Atherosclerosis. 2014: 232(2):410-413. Performed By: #### 2 4321-2, 62581-1, , 2776-07 ####[facility] LABORATORYCLIA [id number] [place] [address] [place] Cholesterol in VLDL [Mass/Vol] 19 mg/dL Normal <30 [facility] Comment on above: Order Comment: Samiri men Type: BLOOD SPECIMENOrdering Facility: [facility] Address: [address] [address] Performed By: #### 2 4321-2, 29336-2, , 2776-07 ####[facility] LABORATORYCLIA [id number] [address] [place] Cholesterol non HDL [Mass/Vol] 83 mg/dL Normal <130 [facility] Comment on above: Order Comment: Samiri men Type: BLOOD SPECIMENOrdering Facility: [facility] Address: [address] [address] Result Comment: <130 mg/dL, Optimal 130-159 mg/dL, Near optimal/above optimal 160-189 mg/dL, Borderline high 190-219 mg/dL, High >219 mg/dL, Very high Secondary prevention optimal non HDL Cholesterol levels are recommended to be <100 mg/dL Performed By: #### 2 4321-2, 78284-0, , 2776-07 ####[facility] LABORATORYCLIA [id number] [address] [place] Cholesterol.total/Pastora sterol in HDL [Mass ratio] 2.48 {ratio} Normal <5.10 [facility] Comment on above: Order Comment: Speci men Type: BLOOD SPECIMENOrdering Facility: [facility] Address: [address] [place] [address] Performed By: #### 2 4321-2, 21517-3, , 2776-07 ####[facility] LABORATORYCLIA [id number] [address] OF [facility] FASTING TIME 8 hrs Normal [facility] Comment on above: Order Comment: Speci men Type: BLOOD SPECIMENOrdering Facility: [facility] Address: [address] [place] [address] Performed By: #### 2 4321-2, 47731-0, , 2776-07 ####[facility] LABORATORYCLIA [id number] [address] [place] Triglyceride [Mass/Vol] 93 mg/dL Normal <150 [facility] Comment on above: Order Comment: Speci men Type: BLOOD SPECIMENOrdering Facility: [facility] Address: [address] [place] [address] Result Comment: <150 mg/dL, Normal 150-199 mg/dL, Borderline high 200-499 mg/dL, High >499 mg/dL, Very high Performed By: #### 2 4321-2, 19975-7, , 2776-07 ####[facility] LABORATORYCLIA [id number] [place] [address] [place] Magnesium SerPl-mCncon 06-18 Magnesium [Mass/Vol] 2.1 mg/dL Normal 1.7-2.3 [facility] Comment on above: Order Comment: Speci men Type: BLOOD SPECIMENOrdering Facility: [facility] Address: [address] [place] [address] Performed By: #### 2 4321-2, 02761-1, 34658-0, 7-1 ####[facility] LABORATORYCLIA [id number] [place] [address] [place] Phosphate SerPl-mCncon 06-18 Phosphate [Mass/Vol] 3.3 mg/dL Normal 2.7-4.8 [facility] Comment on above: Order Comment: Speci men Type: BLOOD SPECIMENOrdering Facility: [facility] Address: [address] [place] [address] Performed By: #### 2 4321-2, 78885-2, , 2776- ####[facility] LABORATORYCLIA [id number] [address] [place] aPTT PPPon 06-18-2022 aPTT Coag (PPP) [Time] 37.[address] High 23.0-32.4 [facility] Comment on above: Order Comment: Speci men Type: BLOOD SPECIMENOrdering Facility: [facility] Address: [address] [place] [address] Performed By: #### 9 4500-6 #### [facility] CLIA [id number] [address] [place] [address] [place] aPTT Coag (PPP) [Time] 58.8 s High 23.0-32.4 [facility] Comment on above: Order Comment: Speci men Type: BLOOD SPECIMENOrdering Facility: [facility] Address: [address] [place] [address] Performed By: #### 1 4979-9 ####[facility] LABORATORYCLIA [id number] [address] [place] aPTT Coag (PPP) [Time] 127.7 s High 23.0-32.4 [facility] Comment on above: Order Comment: Speci men Type: BLOOD SPECIMEN [facility] Address: [place] [address] Performed By: #### T SCR #### [facility] CLIA [id number] [address] OF [facility] ALLIED HEALTHon 06-17-2022 ALLIED HEALTH HNO ID: [id number] Author: RT [place](R) Service: Radiology Author Type: [...] [place]) June 17, 2022 9:30 AM Normal [facility] ALLIED [facility] HNO ID: [id number] Author: Jeremías Bragg II Service: Infection Prevention [...] TIME: 8:27 AM PAGER/CONTACT #: Infection Prevention, [id number] Infection Prevention after hours/weekend pager: [phone] Normal [facility] ANES POSTPROC EVALon 022 ANES POSTPROC EVAL HNO ID: [id number] Author: Larry Moss MD Service: Anesthesiology Author Type: Anesthesiologist Type: Anesthesia Postprocedure Evaluation Filed: 06/17/2022 6:51 AM Note Text: POST ANESTHESIA EVALUATION NOTE : 1940 Procedure Summary Date: 06/16/22 Room / Location: [address] [place] Anesthesia Start: 1609 Anesthesia Stop: [...] June 17, 2022 TIME: 6:50 AM CSN: [id number] Normal [facility] Basic metabolic 2000 panelon 06-17-2022 Anion gap [Moles/Vol] 9 mmol/L Normal 9-18 [facility] Comment on above: Order Comment: Speci men Type: BLOOD SPECIMENOrdering Facility: [facility] Address: [address] [place] [address] Performed By: #### 2 4321-2, , 2776-07 ####[facility] LABORATORYCLIA [id number] [place] [address] [place] Calcium [Mass/Vol] 7.9 mg/dL Low 8.5-10.2 [facility] Comment on above: Order Comment: Speci men Type: BLOOD SPECIMENOrdering Facility: [facility] Address: [address] [place] [address] Performed By: #### 2 4321-2, , 2776-07 ####[facility] LABORATORYCLIA [id number] [place] [address] [place] Chloride [Moles/Vol] 107 mmol/L High 97-105 [facility] Comment on above: Order Comment: Speci men Type: BLOOD SPECIMENOrdering Facility: [facility] Address: [address] [address] Performed By: #### 2 4321-2, , 2776-07 ####[facility] LABORATORYCLIA [id number] [place] [address] [place] CO2 [Moles/Vol] 21 mmol/L Low 22-30 [facility] Comment on above: Order Comment: Speci men Type: BLOOD SPECIMENOrdering Facility: [facility] Address: [address] [address] Performed By: #### 2 4321-2, 97378-52776-07 ####[facility] LABORATORYCLIA [id number] [place] [address] [place] Creatinine [Mass/Vol] 0.99 mg/dL High 0.58-0.96 [facility] Comment on above: Order Comment: Rhina mason Type: BLOOD SPECIMENOrdering Facility: [facility] Address: [address] [address] Performed By: #### 2 4321-2, , 2776-07 ####[facility] LABORATORYCLIA [id number] [place] [address] [place] ESTIMATED GLOMERULAR FILTRATION RATE 57 mL/min/1.73m??? Low >=60 [facility] Comment on above: Order Comment: Rhina mason Type: BLOOD SPECIMENOrdering Facility: [facility] Address: [address] [place] [address] Result Comment: Isa mated Glomerular Filtration Rate [...] Performed By: #### 2 4321-2, , 2776-07 ####[facility] LABORATORYCLIA [id number] [place] [address] [place] [facility] Glucose [Mass/Vol] 84 mg/dL Normal 74-99 [facility] Comment on above: Order Comment: Rhina isabella Type: BLOOD SPECIMENOrdering Facility: [facility] Address: [address] [address] Result Comment: The [place] Diabetes Association (ADA) provides guidance for cutoff [...] Standards of Medical Care in Diabetes 2016, [place] Diabetes Association. Diabetes Care. 2016.39(Suppl 1). Performed By: #### 2 4321-2, , 2776-07 ####[facility] LABORATORYCLIA [id number] [place] [address] [place] Potassium [Moles/Vol] 4.3 mmol/L Normal 3.7-5.1 [facility] Comment on above: Order Comment: Speci isabella Type: BLOOD SPECIMENOrdering Facility: [facility] Address: [address] [address] Performed By: #### 2 4321-2, , 2776-07 ####[facility] [id number] [address] STATES OF [facility] Sodium [Moles/Vol] 137 mmol/L Normal 136-144 [facility] Comment on above: Order Comment: Speci isabella Type: BLOOD SPECIMENOrdering Facility: [facility] Address: [address] [place] [address] Performed By: #### 2 4321-2, , 2776-07 ####[facility] LABORATORYCLIA [id number] [address] [place] Urea nitrogen [Mass/Vol] 27 mg/dL High 7-21 [facility] Comment on above: Order Comment: Speci men Type: BLOOD SPECIMENOrdering Facility: [facility] Address: [address] [address] Performed By: #### 2 4321-2, , 2776-07 ####[facility] LABORATORYCLIA [id number] [address] [place] CBC panel Auto (Bld)on 06-17 Erythrocyte distribution width (RBC) [Ratio] 15.5 % High 11.5-15.0 [facility] Comment on above: Order Comment: Speci men Type: BLOOD SPECIMENOrdering Facility: [facility] Address: [address] [place] [address] Performed By: #### 5 8410-2 ####[facility] LABORATORYCLIA [id number] [address] OF [facility] Hematocrit (Bld) [Volume fraction] 26.6 % Low 36.0-46.0 [facility] Comment on above: Order Comment: Speci men Type: BLOOD SPECIMENOrdering Facility: [facility] Address: [address] [place] [address] Performed By: #### 5 8410-2 ####[facility] LABORATORYCLIA [id number] [address] OF [facility] Hemoglobin (Bld) [Mass/Vol] 8.5 g/dL Low 11.5-15.5 [facility] Comment on above: Order Comment: Speci men Type: BLOOD SPECIMENOrdering Facility: [facility] Address: [address] [place] [address] Performed By: #### 5 8410-2 ####[facility] LABORATORYCLIA [id number] [address] OF [facility] MCH (RBC) [Entitic mass] 30.0 pg Normal 26.0-34.0 [facility] Comment on above: Order Comment: Speci men Type: BLOOD SPECIMENOrdering Facility: [facility] Address: [address] [address] Performed By: #### 5 8410-2 ####[facility] LABORATORYCLIA [id number] [address] [place] MCHC (RBC) [Mass/Vol] 32.0 g/dL Normal 30.5-36.0 [facility] Comment on above: Order Comment: Speci men Type: BLOOD SPECIMENOrdering Facility: [facility] Address: [address] [place] [address] Performed By: #### 5 8410-2 ####[facility] LABORATORYCLIA [id number] [address] OF [facility] MCV (RBC) [Entitic vol] 94.0 fL Normal 80.0-100.0 [facility] Comment on above: Order Comment: Speci men Type: BLOOD SPECIMENOrdering Facility: [facility] Address: [address] [place] [address] Performed By: #### 5 8410-2 ####[facility] LABORATORYCLIA [id number] [address] [place] Nucleated RBC (Bld) [#/Vol] 0.02 10*3/uL High <0.01 [facility] Comment on above: Order Comment: Speci men Type: BLOOD SPECIMENOrdering Facility: [facility] Address: [address] [place] [address] Performed By: #### 5 8410-2 ####[facility] LABORATORYCLIA [id number] [address] Platelet mean volume (Bld) [Entitic vol] 9.5 fL Normal 9.0-12.7 [facility] Comment on above: Order Comment: Speci men Type: BLOOD SPECIMENOrdering Facility: [facility] Address: [address] [place] [address] Performed By: #### 5 8410-2 ####[facility] LABORATORYCLIA [id number] [address] Platelets (Bld) [#/Vol] 223 10*3/uL Normal 150-400 [facility] Comment on above: Order Comment: Speci men Type: BLOOD SPECIMENOrdering Facility: [facility] Address: [address] [place] [address] Performed By: #### 5 8410-2 ####[facility] LABORATORYCLIA [id number] [address] [place] RBC (Bld) [#/Vol] 2.83 10*6/uL Low 3.90-5.20 [facility] Comment on above: Order Comment: Speci men Type: BLOOD SPECIMENOrdering Facility: [facility] Address: [place] [address] Performed By: #### 5 8410-2 ####[facility] LABORATORYCLIA [id number] [place] [id number] [facility] WBC (Bld) [#/Vol] 8.61 10*3/uL Normal 3.70-11.00 [facility] Comment on above: Order Comment: Speci men Type: BLOOD SPECIMENOrdering Facility: [facility] Address: [address] [id number] Performed By: #### 5 8410-2 ####[facility] LABORATORYCLIA [id number] [place] [id number] [facility] CONSULTon 06-17-2022 CONSULT HNO ID: [id number] Author: García Monique MD Service: Cardiovascular Medicine Author Type: Physician Type: Consults Filed: 06/17/2022 11:14 AM Note Text: [facility]IOVASCULAR INTENSIVE [facility]ARE UNIT ([facility]) History AND Physical Note PATIENT NAME: Mel Castillo DATE: June 17, 2022 ADMITTED FOR: Subjective HPI Ms. Mel Castillo is a 81 year old female with PMH: - Paroxysmal Afib - GERD - HTN - Hypothyroidism Patient presented to [facility] on 06/16/2022 for evaluation of [...] her covid symptoms. States doesnot see a technology resource teacher and has no other past cardiac history [...] Procedure Component Value Units Date/Time Expedited COVID19 [[id number]] (Abnormal) Collected: 06/16/22826 Order Status: Completed Specimen: Nasal Swab from UPPER RESPIRATORY TRACT SWAB Updated: 06/16/22 1108 COVID 19 Result SARS-CoV-2 (Agent of COVID-19) Detected by RT-PCR or equivalent method. Comment: This test has been authorized by FDA under an Emergency Use Authorization (EUA). IMAGING: CT chest: No results found for: (more content not included)... Normal [facility] CONSULT PROGon 06-17-2022 CONSULT PROG HNO ID: [id number] Author: Dominique Lauren RPh Service: Pharmacy Author [...] any questions or concerns. SIGNATURE: Dominique Lauren [facility] DATE/TIME: 06/17/2022 3:47 PM Normal [facility] CONSULT PROG HNO ID: [id number] Author: Emanuel Hull MD Service: General Surgery [...] questions or concerns Tue-Tue 6a-5p please page [phone]. After 5pm and on Weekends and Holidays, please page [phone] if in ICU or [phone] if on RNF. 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 Normal [facility] ECHOon 06-17-2022 Echocardiography Echocardiography Report: Transthoracic Echo [facility] Date of service: 06/17/2022 10:27:19 AM [...] * * Final * * * CC [employer] The Simple, Fast and Elegant Tablet Sales App Medical Image : [id number] [id number] Normal [facility] Magnesium SerPl-mCncon 06-17 Magnesium [Mass/Vol] 2.1 mg/dL Normal 1.7-2.3 [facility] Comment on above: Order Comment: Rhina mason Type: BLOOD SPECIMENOrdering Facility: [facility] Address: [address] [place], [place] [phone] Performed By: #### 2 4321-2, , 2776-07 ####[facility] LABORATORYCLIA [id number] [place] [address] [place] Phosphate SerPl-mCncon 06-17 Phosphate [Mass/Vol] 3.8 mg/dL Normal 2.7-4.8 [facility] Comment on above: Order Comment: Rhina mason Type: BLOOD SPECIMENOrdering Facility: [facility] Address: [address] [place], [place] [phone] Performed By: #### 2 4321-2, , 2776-07 ####[facility] LABORATORYCLIA [id number] [address] STATES OF [facility] XR CHEST 1V FRONTALon 2021 XR CHEST [...] Comparison: None. RESULT: Lines, tubes, and devices: quality assurance monitor chassis leads. Hardware noted in the proximal right [...] in both lungs suspicious for multifocal pneumonia. Research Environmental Scientist: DEVEN Transcribe Date/Time: Jun 17 2022 10:41A Dictated by : DI MINER MD This examination was interpreted and the report reviewed and electronically signed by: DI MINER MD on Jun 17 2022 10:43AM EST [id number] Normal [facility] aPTT PPPon 06-17-2022 aPTT Coag (PPP) [Time] 48.4 s High 23.0-32.4 [facility] Comment on above: Order Comment: Speci men Type: BLOOD SPECIMENOrdering Facility: [facility] Address: [address] [address] Performed By: #### 9 4500-6 #### [facility] CLIA [id number] [address] aPTT Coag (PPP) [Time] 29.4 s Normal 23.0-32.4 [facility] Comment on above: Order Comment: Speci men Type: BLOOD SPECIMENOrdering Facility: [facility] Address: [address] [address] Performed By: #### 3 2355-0 #### [facility] CLIA [id number] [address] aPTT Coag (PPP) [Time] 125.1 s High 23.0-32.4 [facility] Comment on above: Order Comment: Speci men Type: BLOOD SPECIMEN [facility] Address: [address] [place] [address] Performed By: #### T SCR #### [facility] CLIA [id number] [address] aPTT Coag (PPP) [Time] s High 23.0-32.4 [facility] Comment on above: Order Comment: Speci men Type: BLOOD SPECIMENOrdering Facility: [facility] Address: [address] [place] [address] Performed By: #### 3 2355-0 #### [facility] CLIA [id number] [address] aPTT Coag (PPP) [Time] 28.5 s Normal 23.0-32.4 [facility] Comment on above: Order Comment: Speci men Type: BLOOD SPECIMENOrdering Facility: [facility] Address: [address] [place] [address] Performed By: #### 1 4979-9 ####[facility] LABORATORYCLIA [id number] [address] ANES PRE-OPon 06-16-2022 ANES PRE-OP HNO ID: [id number] Author: Olu Winn MD Service: Anesthesiology Author [...] June 16, 2022 TIME: 3:44 PM CSN: [id number] [facility] BRIEF OP NOTon 06-16-2022 BRIEF OP NOT HNO ID: [id number] Author: Emanuel Hull MD Service: General Surgery [...] BRIEF OPERATIVE / PROCEDURE NOTE LOG ID: [id number] Surgery/Procedure Date: 06/16/2022 Incision/Procedure Start Time: 5:01 PM Incision Close/Procedure End Time: 6:58 PM Surgeon(s)/Proceduralis t(s) and Turf Sales Person(s): Surgeon(s) and Role: * Frida Rodriguez MD [...] and on weekends, please page surgery on-call [phone] (RNF) or [phone] (ICU) SIGNATURE: Emanuel Hull MD PATIENT NAME: Mel Castillo DATE: June 16, 2022 TIME: 7:19 PM PAGER/CONTACT #: [phone] Normal [facility] CBC W Auto Differential pane l (Bld)on 06-16-2022 Anisocytosis Ql (Bld) Present Normal [facility] Comment on above: Order Comment: Speci men Type: BLOOD SPECIMENOrdering Facility: [facility] Address: [address] [place] [address] Performed By: #### 5 7021-8 ####[facility] LABORATORYCLIA [id number] [place] [address] [place] Basophils (Bld) [#/Vol] 0.00 10*3/uL Normal <0.11 [facility] Comment on above: Order Comment: Speci men Type: BLOOD SPECIMENOrdering Facility: [facility] Address: [address] [address] Performed By: #### 5 7021-8 ####[facility] LABORATORYCLIA [id number] [place] [address] [place] Basophils/100 WBC (Bld) 0.0 % Normal [facility] Comment on above: Order Comment: Speci men Type: BLOOD SPECIMENOrdering Facility: [facility] Address: [address] [place] [address] Performed By: #### 5 7021-8 ####[facility] LABORATORYCLIA [id number] [address] OF [facility] Differential cell count method Nom (Bld) Manual Normal [facility] Comment on above: Order Comment: Speci men Type: BLOOD SPECIMENOrdering Facility: [facility] Address: [address] [place] [address] Performed By: #### 5 7021-8 ####[facility] LABORATORYCLIA [id number] [address] [place] Eosinophils (Bld) [#/Vol] 0.00 10*3/uL Normal <0.46 [facility] Comment on above: Order Comment: Speci men Type: BLOOD SPECIMENOrdering Facility: [facility] Address: [address] [place] [address] Performed By: #### 5 7021-8 ####[facility] LABORATORYCLIA [id number] [address] Eosinophils/100 WBC (Bld) 0.0 % Normal [facility] Comment on above: Order Comment: Speci men Type: BLOOD SPECIMENOrdering Facility: [facility] Address: [address] [place] [address] Performed By: #### 5 7021-8 ####[place] [facility] LABORATORYCLIA [id number] [address] [place] Erythrocyte distribution width (RBC) [Ratio] 15.6 % High 11.5-15.0 [facility] Comment on above: Order Comment: Speci men Type: BLOOD SPECIMENOrdering Facility: [facility] Address: [address] [place] [address] Performed By: #### 5 7021-8 ####[facility]ORATORYCLIA [id number] [address] [place] Hematocrit (Bld) [Volume fraction] 35.3 % Low 36.0-46.0 [facility] Comment on above: Order Comment: Speci men Type: BLOOD SPECIMENOrdering Facility: [facility] Address: [address] [place] [address] Performed By: #### 5 7021-8 ####[place] [facility] LABORATORYCLIA [id number] [place] [address] [place] Hemoglobin (Bld) [Mass/Vol] 11.4 g/dL Low 11.5-15.5 [facility] Comment on above: Order Comment: Speci men Type: BLOOD SPECIMENOrdering Facility: [facility] Address: [address] [place] [address] Performed By: #### 5 7021-8 ####[place] [facility] LABORATORYCLIA [id number] [address] [place] Lymphocytes (Bld) [#/Vol] 1.27 10*3/uL Normal 1.00-4.00 [facility] Comment on above: Order Comment: Speci men Type: BLOOD SPECIMENOrdering Facility: [facility] Address: [address] [place] [address] Performed By: #### 5 7021-8 ####[place] [facility] LABORATORYCLIA [id number] [address] [place] Lymphocytes/100 WBC (Bld) 8.0 % Normal [facility] Comment on above: Order Comment: Speci men Type: BLOOD SPECIMENOrdering Facility: [facility] Address: [address] [place] [address] Performed By: #### 5 7021-8 ####[place] [facility] LABORATORYCLIA [id number] [address] [place] MCH (RBC) [Entitic mass] 30.2 pg Normal 26.0-34.0 [facility] Comment on above: Order Comment: Speci men Type: BLOOD SPECIMENOrdering Facility: [facility] Address: [address] [place] [address] Performed By: #### 5 7021-8 ####[place] [facility] LABORATORYCLIA [id number] [address] [place] MCHC (RBC) [Mass/Vol] 32.3 g/dL Normal 30.5-36.0 [facility] Comment on above: Order Comment: Speci men Type: BLOOD SPECIMENOrdering Facility: [facility] Address: [address] [place] [address] Performed By: #### 5 7021-8 ####[place] [facility] LABORATORYCLIA [id number] [address] [place] MCV (RBC) [Entitic vol] 93.6 fL Normal 80.0-100.0 [facility] Comment on above: Order Comment: Speci men Type: BLOOD SPECIMENOrdering Facility: [facility] Address: [address] [place] [address] Performed By: #### 5 7021-8 ####[place] [facility] LABORATORYCLIA [id number] [address] STATES OF [facility] Monocytes (Bld) [#/Vol] 1.74 10*3/uL High <0.87 [facility] Comment on above: Order Comment: Speci men Type: BLOOD SPECIMENOrdering Facility: [facility] Address: [address] [place] [address] Performed By: #### 5 7021-8 ####[place] [facility] LABORATORYCLIA [id number] [address] Monocytes/100 WBC (Bld) 11.0 % Normal [facility] Comment on above: Order Comment: Speci men Type: BLOOD SPECIMENOrdering Facility: [facility] Address: [address] [place] [address] Performed By: #### 5 7021-8 ####[place] [facility] LABORATORYCLIA [id number] [address] [place] MYELO% 4.0 % Normal [facility] Comment on above: Order Comment: Speci men Type: BLOOD SPECIMENOrdering Facility: [facility] Address: [address] [address] Performed By: #### 5 7021-8 ####[facility] LABORATORYCLIA [id number] [address] [place] Neutrophils (Bld) [#/Vol] 12.02 10*3/uL High 1.45-7.50 [facility] Comment on above: Order Comment: Speci men Type: BLOOD SPECIMENOrdering Facility: [facility] Address: [address] [place] [address] Performed By: #### 5 7021-8 ####[facility]ORATORYCLIA [id number] [address] Neutrophils/100 WBC (Bld) 76.0 % Normal [facility] Comment on above: Order Comment: Speci men Type: BLOOD SPECIMENOrdering Facility: [facility] Address: [address] [place] [address] Performed By: #### 5 7021-8 ####[facility]ORATORYCLIA [id number] [address] [place] Nucleated RBC (Bld) [#/Vol] 10*3/uL Normal <0.01 [facility] Comment on above: Order Comment: Speci men Type: BLOOD SPECIMENOrdering Facility: [facility] Address: [address] [place] [address] Performed By: #### 5 7021-8 ####[facility]ORATORYCLIA [id number] [address] Nucleated RBC/100 WBC (Bld) [Ratio] 0.0 /100 WBC Normal [facility] Comment on above: Order Comment: Speci men Type: BLOOD SPECIMENOrdering Facility: [facility] Address: [address] [place] [address] Performed By: #### 5 7021-8 ####[facility] LABORATORYCLIA [id number] [address] [place] Platelet mean volume (Bld) [Entitic vol] 9.7 fL Normal 9.0-12.7 [facility] Comment on above: Order Comment: Speci men Type: BLOOD SPECIMENOrdering Facility: [facility] Address: [address] [address] Performed By: #### 5 7021-8 ####[place] [facility] LABORATORYCLIA [id number] [address] [place] Platelets (Bld) [#/Vol] 373 10*3/uL Normal 150-400 [facility] Comment on above: Order Comment: Speci men Type: BLOOD SPECIMENOrdering Facility: [facility] Address: [address] [address] Performed By: #### 5 7021-8 ####[place] [facility] LABORATORYCLIA [id number] [address] Platelets Estimate (Bld) [#/Vol] Adequate Normal [facility] Comment on above: Order Comment: Speci men Type: BLOOD SPECIMENOrdering Facility: [facility] Address: [address] [place] [address] Performed By: #### 5 7021-8 ####[place] [facility] LABORATORYCLIA [id number] [address] PROMYL% 1.0 % Normal [facility] Comment on above: Order Comment: Speci men Type: BLOOD SPECIMENOrdering Facility: [facility] Address: [address] [address] Performed By: #### 5 7021-8 ####[place] [facility] LABORATORYCLIA [id number] [address] [place] RBC (Bld) [#/Vol] 3.77 10*6/uL Low 3.90-5.20 [facility] Comment on above: Order Comment: Speci men Type: BLOOD SPECIMENOrdering Facility: [facility] Address: [address] [place] [address] Performed By: #### 5 7021-8 ####[facility]ORATORYCLIA [id number] [address] RED CELL MORPH Normal Normal [facility] Comment on above: Order Comment: Speci men Type: BLOOD SPECIMENOrdering Facility: [facility] Address: [address] [place] [address] Performed By: #### 5 7021-8 ####[place] [facility] LABORATORYCLIA [id number] [address] SPHEROCYTES Few Normal [facility] Comment on above: Order Comment: Speci men Type: BLOOD SPECIMENOrdering Facility: [facility] Address: [address] [address] Performed By: #### 5 7021-8 ####[place] [facility] LABORATORYCLIA [id number] [address] WBC (Bld) [#/Vol] 15.82 10*3/uL High 3.70-11.00 [facility] Comment on above: Order Comment: Speci men Type: BLOOD SPECIMENOrdering Facility: [facility] Address: [address] [place] [address] Result Comment: Resu lts checked and verified. Performed By: #### 5 7021-8 ####[place] [facility] LABORATORYCLIA [id number] [address] CBC panel Auto (Bld)on 06-16 Erythrocyte distribution width (RBC) [Ratio] 15.5 % High 11.5-15.0 [facility] Comment on above: Order Comment: Speci men Type: BLOOD SPECIMENOrdering Facility: [facility] Address: [address] [place] [address] Performed By: #### 5 8410-2 ####[place] [facility] LABORATORYCLIA [id number] [address] Hematocrit (Bld) [Volume fraction] 30.1 % Low 36.0-46.0 [facility] Comment on above: Order Comment: Speci men Type: BLOOD SPECIMENOrdering Facility: [facility] Address: [address] [place] [address] Performed By: #### 5 8410-2 ####[place] LABORATORYCLIA [id number] [address] Hemoglobin (Bld) [Mass/Vol] 9.8 g/dL Low 11.5-15.5 [facility] Comment on above: Order Comment: Speci men Type: BLOOD SPECIMENOrdering Facility: [facility] Address: [address] [place] [address] Performed By: #### 5 8410-2 ####[facility] LABORATORYCLIA [id number] [address] MCH (RBC) [Entitic mass] 30.8 pg Normal 26.0-34.0 [facility] Comment on above: Order Comment: Speci men Type: BLOOD SPECIMENOrdering Facility: [facility] Address: [address] [place] [address] Performed By: #### 5 8410-2 ####[place] [facility] LABORATORYCLIA [id number] [address] MCHC (RBC) [Mass/Vol] 32.6 g/dL Normal 30.5-36.0 [facility] Comment on above: Order Comment: Speci men Type: BLOOD SPECIMENOrdering Facility: [facility] Address: [address] [place] [address] Performed By: #### 5 8410-2 ####[place] [facility] LABORATORYCLIA [id number] [address] MCV (RBC) [Entitic vol] 94.7 fL Normal 80.0-100.0 [facility] Comment on above: Order Comment: Speci men Type: BLOOD SPECIMENOrdering Facility: [facility] Address: [address] [place] [address] Performed By: #### 5 8410-2 ####[place] [facility] LABORATORYCLIA [id number] [address] Nucleated RBC (Bld) [#/Vol] 0.08 10*3/uL High <0.01 [facility] Comment on above: Order Comment: Speci men Type: BLOOD SPECIMENOrdering Facility: [facility] Address: [address] [place] [address] Performed By: #### 5 8410-2 ####[place] LABORATORYCLIA [id number] [address] [place] Platelet mean volume (Bld) [Entitic vol] 9.6 fL Normal 9.0-12.7 [facility] Comment on above: Order Comment: Speci men Type: BLOOD SPECIMENOrdering Facility: [facility] Address: [address] [address] Performed By: #### 5 8410-2 ####[place] [facility] LABORATORYCLIA [id number] [address] [place] Platelets (Bld) [#/Vol] 277 10*3/uL Normal 150-400 [facility] Comment on above: Order Comment: Speci men Type: BLOOD SPECIMENOrdering Facility: [facility] Address: [address] [address] Performed By: #### 5 8410-2 ####[place] LABORATORYCLIA [id number] [place] [address] [place] RBC (Bld) [#/Vol] 3.18 10*6/uL Low 3.90-5.20 [facility] Comment on above: Order Comment: Speci men Type: BLOOD SPECIMENOrdering Facility: [facility] Address: [address] [address] Performed By: #### 5 8410-2 ####[place] LABORATORYCLIA [id number] [place] [address] [place] WBC (Bld) [#/Vol] 10.43 10*3/uL Normal 3.70-11.00 [facility] Comment on above: Order Comment: Speci men Type: BLOOD SPECIMENOrdering Facility: [facility] Address: [address] [place] [address] Performed By: #### 5 8410-2 ####[place] [facility] LABORATORYCLIA [id number] [address] STATES OF [facility] CONSULTon 06-16-2022 CONSULT HNO ID: [id number] Author: Iman Saldana DO Service: General Surgery [...] or co (more content not included)... Normal [facility] CTA ABD/PEL/LOWER EXT W IVCO Non 06-16-2022 CTA ABD/PEL/LOWER EXT W IVCON * * *Final Report* * * DATE OF EXAM: Jun 16 2022 7:33AM [facility] 0122 - CTA ABD/PEL/LOWER EXT [...] lobe consolidation may represent pneumonia or atelectasis. Research Environmental Scientist: PSCB Transcribe Date/Time: Jun 16 2022 7:54A Dictated by : ESTHER MCKEON MD This examination was interpreted and the report reviewed and electronically signed by: ESTHER MCKEON MD on Jun 16 2022 8:22AM EST [id number] Normal [facility] Comprehensive metabolic 2000 panelon 06-16-2022 Albumin [Mass/Vol] 3.2 g/dL Low 3.9-4.9 [facility] Comment on above: Order Comment: Speci men Type: BLOOD SPECIMENOrdering Facility: [facility] Address: [address] [place] [address] Performed By: #### 3 3959-8, 54932-0, 68402-8, 22652-0 ####[place] LABORATORYCLIA [id number] [address] STATES OF [facility] ALP [Catalytic activity/Vol] 111 U/L Normal 34-123 [facility] Comment on above: Order Comment: Speci men Type: BLOOD SPECIMENOrdering Facility: [facility] Address: [address] [place] [address] Performed By: #### 3 3959-8, 71823-5, 44133-6, 51586-6 ####[place] LABORATORYCLIA [id number] [address] STATES OF [facility] ALT With P-5'-P [Catalytic activity/Vol] 20 U/L Normal 7-38 [facility] Comment on above: Order Comment: Speci men Type: BLOOD SPECIMENOrdering Facility: [facility] Address: [address] [place] [address] Performed By: #### 3 3959-8, 88030-4, 35066-1, 69866-2 ####[place] [facility] LABORATORYCLIA [id number] [address] STATES [facility] Anion gap [Moles/Vol] 17 mmol/L Normal 9-18 [facility] Comment on above: Order Comment: Speci men Type: BLOOD SPECIMENOrdering Facility: [facility] Address: [address] [place] [address] Performed By: #### 3 3959-8, 33220-6, 25703-0, 16675-0 ####[place] [facility] LABORATORYCLIA [id number] [address] [place] AST With P-5'-P [Catalytic activity/Vol] 13 U/L Normal 13-35 [facility] Comment on above: Order Comment: Speci men Type: BLOOD SPECIMENOrdering Facility: [facility] Address: [address] [address] Performed By: #### 3 3959-8, 32544-5, 78812-9, 36025-8 ####[place] LABORATORYCLIA [id number] [place] [address] [place] Bilirubin [Mass/Vol] 0.3 mg/dL Normal 0.2-1.3 [facility] Comment on above: Order Comment: Speci men Type: BLOOD SPECIMENOrdering Facility: [facility] Address: [address] [place] [address] Performed By: #### 3 3959-8, 15104-9, , 09772-9 ####[place] LABORATORYCLIA [id number] [place] [address] [place] Calcium [Mass/Vol] 9.1 mg/dL Normal 8.5-10.2 [facility] Comment on above: Order Comment: Speci men Type: BLOOD SPECIMENOrdering Facility: [facility] Address: [address] [place] [address] Performed By: #### 3 3959-8, 97079-9, 95525-5, 00164-2 ####[place] LABORATORYCLIA [id number] [place] [address] [place] Chloride [Moles/Vol] 104 mmol/L Normal 97-105 [facility] Comment on above: Order Comment: Speci men Type: BLOOD SPECIMENOrdering Facility: [facility] Address: [address] [address] Performed By: #### 3 3959-8, 63912-6, 56514-2, 64260-9 ####[place] LABORATORYCLIA [id number] [place] [address] [place] CO2 [Moles/Vol] 18 mmol/L Low 22-30 [facility] Comment on above: Order Comment: Speci men Type: BLOOD SPECIMENOrdering Facility: [facility] Address: [address] [address] Performed By: #### 3 3959-8, 75170-2, 61722-0, 42031-8 ####[facility]CL[facility] [id number] [address] [place] Creatinine [Mass/Vol] 1.14 mg/dL High 0.58-0.96 [facility] Comment on above: Order Comment: Speci men Type: BLOOD SPECIMENOrdering Facility: [facility] Address: [address] [address] Performed By: #### 3 3959-8, 31957-6, 20973-3, 69989-9 ####[facility]ITAL[facility] [id number] [address] [place] ESTIMATED GLOMERULAR FILTRATION RATE 48 mL/min/1.73m??? Low >=60 [facility] Comment on above: Order Comment: Rhina mason Type: BLOOD SPECIMENOrdering Facility: [facility] Address: [address] [address] Result Comment: Isa mated Glomerular Filtration Rate [...] actual GFR. Performed By: #### 3 3959-8, 55580-0, 91450-7, 01495-6 ####[facility] LABORATORYIA [id number] [address] [place] Glucose [Mass/Vol] 122 mg/dL High 74-99 [facility] Comment on above: Order Comment: Speci men Type: BLOOD SPECIMENOrdering Facility: [facility] Address: [address] [place] [address] Result Comment: The [employer] Diabetes Association (ADA) provides guidance for cutoff [...] Standards of Medical Care in Diabetes 2016, [place] Diabetes Association. Diabetes Care. 2016.39(Suppl 1). Performed By: #### 3 3959-8, 14045-1, 27455-5, 25095-1 ####[facility] LABORATORYCLIA [id number] [place] [address] [place] Potassium [Moles/Vol] 4.4 mmol/L Normal 3.7-5.1 [facility] Comment on above: Order Comment: Speci [facility] Type: BLOOD SPECIMENOrdering Facility: [facility] Address: [address] [place] [address] Performed By: #### 3 3959-8, 22882-0, 97182-4, 83986-7 ####[facility]PITALCLIA [id number] [place] [address] [place] Protein [Mass/Vol] 6.6 g/dL Normal 6.3-8.0 [facility] Comment on above: Order Comment: Speci [facility] Type: BLOOD SPECIMENOrdering Facility: [facility] Address: [address] [place] [address] Performed By: #### 3 3959-8, 58214-3, 52592-1, 98965-1 ####[facility] LABORATORYCLIA [id number] [place] [address] [place] Sodium [Moles/Vol] 139 mmol/L Normal 136-144 [facility] Comment on above: Order Comment: Speci men Type: BLOOD SPECIMENOrdering Facility: [facility] Address: [address] [place] [address] Performed By: #### 3 3959-8, 99543-5, 56115-9, 22207-0 ####[facility] LABORATORYCLIA [id number] [place] [address] [place] Urea nitrogen [Mass/Vol] 35 mg/dL High 7-21 [facility] Comment on above: Order Comment: Speci men Type: BLOOD SPECIMENOrdering Facility: [facility] Address: [address] [place], [place] [id number] Performed By: #### 3 3959-8, 81089-3, 78733-7, 59220-9 ####[facility] LABORATORYCLIA [id number] [place] [address] [facility] ED NOTEon 06-16-2022 ED NOTE HNO ID: [id number] Author: Adela Cortez RN Service: Emergency Medicine Author Type: Registered Nurse Type: ED Notes Filed: 06/16/2022 11:27 AM Note Text: Pts aptt is >139. Nongram states to hold dose and let MD know. Vascular resident made aware, MD ordered to hold dose x1 hour and then redraw aptt. Normal [facility] ED NOTE HNO ID: [id number] Author: Nancy Scott RN Service: Emergency Medicine Author Type: Registered Nurse Type: ED Notes Filed: 06/16/2022 7:13 AM Note Text: CT notified that pt has been moved to new room and is ready for testing [facility] ED NOTE HNO ID: [id number] Author: Marleen Blank RN Service: ? Author Type: Registered Nurse Type: ED Notes Filed: 06/16/2022 6:59 AM Note Text: Bed: 19-ED Expected date: Expected time: Means of arrival: Comments: Normal [facility] ED NOTE HNO ID: [id number] Author: Nancy Scott RN Service: Emergency Medicine Author Type: Registered Nurse Type: ED Notes Filed: 06/16/2022 6:44 AM Note Text: CT delayed due to pt needing to move rooms because of bed bugs. Normal [facility] ED NOTE HNO ID: [id number] Author: Nancy Scott RN Service: Emergency Medicine Author Type: Registered Nurse Type: ED Notes Filed: 06/16/2022 3:09 AM Note Text: CT form faxed, ptt sent Normal [facility] ED NOTE HNO ID: [id number] Author: Nancy Scott RN Service: Emergency Medicine Author Type: Registered Nurse Type: ED Notes Filed: 06/16/2022 3:02 AM Note Text: US notified Normal [facility] ED NOTE HNO ID: [id number] Author: Nancy Scott RN Service: Emergency Medicine Author Type: Registered Nurse Type: ED Notes Filed: 06/16/2022 2:48 AM Note Text: CT notified [facility] ED NOTE HNO ID: [id number] Author: Nancy Scott RN Service: Emergency Medicine Author Type: Registered Nurse Type: ED Notes Filed: 06/16/2022 2:43 AM Note Text: Labs sent Normal [facility] ED NOTE HNO ID: [id number] Author: Davian Chen RN Service: ? Author Type: Registered Nurse Type: ED Notes Filed: 06/16/2022 2:06 AM Note Text: Bed: 15-ED Expected date: Expected time: Means of arrival: Comments: squad [facility] ED PROV NOTEon 06-16-2022 ED PROV NOTE HNO ID: [id number] Author: Vanessa Trevizo DO Service: Emergency Medicine [...] Abnormal; Notable (more content not included)... Normal [facility] ED PROV NOTE HNO ID: [id number] Author: Vanessa Trevizo DO Service: Emergency Medicine [...] diagnosis. Vanessa Trevizo DO 06/16/22 0323 Normal [facility] EKGon 06-16-2022 Electrocardiogram Ventricular Rate : 1 13 BPM Atrial Rate : 122 BPM QRS Duration : 100 ms Q-T Interval : 282 ms QTC Calculation(Bazett) : 386 ms Calculated R Luke : 46 degrees Calculated T Luke : -40 degrees ATRIAL FIBRILLATION WITH RAPID VENTRICULAR RESPONSE ABNORMAL QRS-T ANGLE, CONSIDER PRIMARY T WAVE ABNORMALITY ABNORMAL ECG NO PREVIOUS ECGS AVAILABLE Confirmed by MD LEONE CAROL ([id number]) on 06/16/2022 6:43:12 PM NAME : MEL GUADARRAMA PID : [id number] : 1940 Gender : Female Race : ORD : Procedure Date : Jun 16 2022 07:37:07 Edit Date : Jun 16 2022 18:43:17 Diagnosis: ATRIAL FIBRILLATION WITH RAPID VENTRICULAR RESPONSE ABNORMAL QRS-T ANGLE, CONSIDER PRIMARY T WAVE ABNORMALITY ABNORMAL ECG NO PREVIOUS ECGS AVAILABLE Confirmed by MD LEONE CAROL ([id number]) on 06/16/2022 6:43:12 PM Test Reason : Location : 4 : AKED 19 Overread By : MD LEONE CAROL Edited By : MD LEONE CAROL Referred By : , Acquired by : PATRICIA MOE Normal [facility] HIGH SENSITIVITY TROPONIN T (INITIAL)on 06-16-2022 HIGH SENSITIVITY CHRISTOPHER 34 ng/L High <12 [facility] Comment on above: Order Comment: Rhina mason Type: BLOOD SPECIMENOrdering Facility: [facility] Address: [address] [place] [address] Result Comment: When assessing risk for acute [...] #### 3 2355-0 #### [facility] CLIA [id number] [address] [place] HIGH SENSITIVITY TROPONIN T (SECOND)on 06-16-2022 HIGH SENSITIVITY CHRISTOPHER 28 ng/L High <12 [facility] Comment on above: Order Comment: Rhina mason Type: BLOOD SPECIMENOrdering Facility: [facility] Address: [address] [place] [address] Result Comment: When assessing risk for acute [...] 30 day MACE. Performed By: #### L [id number] ####[facility]ORATORYCLIA [id number] [place] [address] [place] HIGH SENSITIVITY TROPONIN T (THIRD) 3 HRS AFTER INITIALon 06-16-2022 HIGH SENSITIVITY CHRISTOPHER 23 ng/L High <12 [facility] Comment on above: Order Comment: Rhina mason Type: BLOOD SPECIMENOrdering Facility: [facility] Address: [address] [place] [address] Result Comment: When assessing risk for acute [...] 30 day MACE. Performed By: #### L [id number] ####[facility] LABORATORYCLIA [id number] [place] [address] [place] HISTORY PHYSICALon HISTORY PHYSICAL HNO ID: [id number] Author: Kristen Jones APRN.CNP Service: Hospital Medicine Author Type: Nurse Practitioner Type: HANDP Filed: 06/16/2022 1:27 PM Note Text: DEPARTMENT OF HOSPITAL MEDICINE HISTORY AND PHYSICAL EXAM SERVICE DATE: 06/16/2022 SERVICE TIME: 12:02 PM Primary Care Physician: Dr. Evans Admitting Provider: Kristen Jones APRN.CNP NIGHT AND WEEKEND COVERAGE: After 7pm, please call cross cover pager #[phone] Subjective CHIEF COMPLAINT: Left leg pain, discoloration [...] this patient has 2 charts. Mel Garcia [id number] and Mel Castillo [id number]. 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 Normal [facility] Magnesium [Mass/Vol] 2.4 mg/dL High 1.7-2.3 [facility] Comment on above: Order Comment: Speci men Type: BLOOD SPECIMENOrdering Facility: [facility] Address: [address] [place] [address] Performed By: #### 3 3959-8, 55458-2, 84578-5, 69709-4 ####[facility]ATORYCLIA [id number] [address] [place] NT-proBNP [facility] Natriuretic peptide.B prohormone N-Terminal [Mass/Vol] 4156 pg/mL High <450 [facility] Comment on above: Order Comment: Speci men Type: BLOOD SPECIMEN [facility] Address: [address] [place] [address] Performed By: #### T SCR #### [facility] CLIA [id number] 1 [place] [address] [place] NURSING PROGon 06-16-2022 NURSING PROG HNO ID: [id number] Author: Kayden José RN Service: Trauma Author [...] TO THE RECEIVING NURSE. NIKKY FRAGA. Normal [facility] PT panel Coag (PPP)on 2021 INR Coag (PPP) [Relative time] 1.1 {INR} Normal 0.9-1.3 [facility] Comment on above: Order Comment: Rhina mason Type: BLOOD SPECIMENOrdering Facility: [facility] Address: [address] [place] [address] Result Comment: Mayra min K Antagonist (VKA) Therapeutic Range: INR 2 to 3 (Target INR of 2.5) Note: For patients treated with VKA drugs, such as warfarin, the [employer] 2012 Guideline recommends [...] Chest 2012, 141:7S-47S Daren RA, et al. [facility] 2017, 70: 252-289 Performed By: #### 3 4528-0, 63603-5 ####[facility]ATORYCLIA [id number] [place] [address] [place] [facility] PT Coag (PPP) [Time] 11.3 s Normal 9.7-13.0 [facility] Comment on above: Order Comment: Rhina mason Type: BLOOD SPECIMENOrdering Facility: [facility] Address: [address] [id number] Performed By: #### 3 4528-0, 80955-4 ####[facility]ORATORYCLIA [id number] [address] [place] Procalcitonin SerPl-mCncon 1 08-16-2021 Procalcitonin [Mass/Vol] 0.19 ng/mL High <0.09 [facility] Comment on above: Order Comment: Speci men Type: BLOOD SPECIMEN [facility] Address: [place] [address] Result Comment: For a guided interpretation of test results, please visit the Change in Procalcitonin Calculator, [email or web address]. Performed By: #### T SCR #### [facility] CLIA [id number] SARS-CoV-2 RNA Resp Ql OXANA+p robeon 06-16-2022 SARS-CoV-2 (COVID-19) RNA OXANA+probe Ql (Resp) COVID 19 RESULT: SARS-CoV-2 (Agent of COVID-19) Detected by RT-PCR or equivalent method. This test has been authorized by FDA under an Emergency Use Authorization (EUA). Normal [facility] Comment on above: Performed By: #### 9 4500-6 #### [facility] CLIA [id number] [address] [place] [address] OF [facility] US DVT LOWER LTon 06-16-2022 US DVT [...] Torres MD on 0516 via verbal communication. Research Environmental Scientist: DEVEN Transcribe Date/Time: Jun 16 2022 5:07A Dictated by : SKIP NOEL MD This examination was interpreted and the report reviewed and electronically signed by: SKIP NOEL MD on Jun 16 2022 5:17AM EST [id number] Normal [facility] aPTT PPPon 06-16-2022 aPTT Coag (PPP) [Time] 74.[address] 23.0-32.4 [facility] Comment on above: Order Comment: Rhina mason Type: BLOOD SPECIMENOrdering Facility: [facility] Address: [address] [place] [address] Performed By: #### 1 4979-9 ####[facility]ATORYCLIA [id number] [address] STATES OF [facility] aPTT Coag (PPP) [Time] 134.7 s High 23.0-32.4 [facility] Comment on above: Order Comment: Rhina mason Type: BLOOD SPECIMENOrdering Facility: [facility] Address: [address] [place] [address] Performed By: #### 1 4979-9 ####[facility]ATORYCLIA [id number] [address] aPTT Coag (PPP) [Time] s High 23.0-32.4 [facility] Comment on above: Order Comment: Specrobson isabella Type: BLOOD SPECIMENOrdering Facility: [facility] Address: [address] [address] Performed By: #### 1 4979-9 ####[facility] [id number] [address] aPTT Coag (PPP) [Time] 21.[address] Low 23.0-32.4 [facility] Comment on above: Order Comment: Rhina isabella Type: BLOOD SPECIMENOrdering Facility: [facility] Address: [address] [address] Performed By: #### 3 4528-0, 88297-4 ####[facility] [id number] [address] CULTURE AND STAIN - TISSUEon 03-10-2020 [...] 0.12 S Rifampin(AGATA) <= 0.5 S Normal [facility] Comment on above: Performed By: #### C XTIS #### [address] [place] [address] [address] [place], [place] [id number] #### C/DAMIÁN #### [address] [address] [place], [place] CR Finger(s) Min 2 Views Rig hton 03-07-2020 CR Finger(s) Min 2 Views Right Patient Name: MEL POP Diagnostic Radiology Exam Date/Time 03/06/2020 10:30:00 EDT Exam CR Finger(s) Min 2 Views Right Ordering Physician MD GUSTAVO, JAYLA Stoll Accession Number [id number] CPT4 Codes 16048 () Reason For Exam pain Report Right [...] was communicated to JAYLA MCMAHAN via the [employer] Critical Result system on 03/07/2020 8:07 PM EDT, Message ID [id number]. Report Dictated on Final Dictating Physician: MD PERRY DIANE Signed Date and Time: 03/07/2020 8:07 pm Signed by: MD PERRY DIANE Transcribed Date and Time: 03/07/2020 8:08 Normal [facility] CULTURE ANAEROBEon 0 CULTURE ANAEROBE CULTURE ANAEROBE --> Status: F No growth of anaerobes at 5 days. STAIN GRAM --> Status: F Few polymorphonuclear cells/lpf. No organisms seen. No organisms seen. Normal [facility] Comment on above: Performed By: #### C XTIS #### [facility] [address] [place] [address] [facility] [address] [place], [place] [id number] #### C/DAMIÁN #### [facility] [address] [place] [address] Vital Signs Date Time Vital Sign Value Performing Clinician Facility 03-15-2025 11:06-0400 Body height 160 cm Andre Berry MD Work Phone: [facility] 03-15-2025 11:06-0400 Body mass index (BMI) [Ratio] 27.1 kg/m2 Andre Berry MD Work Phone: [facility] 03-15-2025 11:06-0400 Body temperature 97.39 [degF] Andre Berry MD Work Phone: [facility] 03-15-2025 11:06-0400 Body weight 69.4 kg Andre Berry MD Work Phone: [facility] Comment on above: unable to stand for ht and wt today 03-15-2025 11:06-0400 Diastolic blood pressure 48 mm[Hg] Andre Berry MD Work Phone: [facility] 03-15-2025 11:06-0400 Heart rate 45 /min Andre Berry MD Work Phone: [facility] 03-15-2025 11:06-0400 SaO2% (BldA) [Mass fraction] 100 % Andre Berry MD Work Phone: [facility] 03-15-2025 11:06-0400 Systolic blood pressure 97 mm[Hg] Andre Berry MD Work Phone: [facility] 12-24-2024 14:45-0400 Body mass index (BMI) [Ratio] 27.1 kg/m2 Kristyn Blankenship MD Work Phone: [facility] 12-24-2024 14:45-0400 Body weight 69.4 kg Kristyn Blankenship MD Work Phone: [facility] 12-05-2024 10:20-0400 Body height 160 cm Kristyn Blankenship MD Work Phone: [facility] 12-05-2024 10:20-0400 Body mass index (BMI) [Ratio] 29.23 kg/m2 Kristyn Blankenship MD Work Phone: [facility] 12-05-2024 10:20-0400 Body weight 74.84 kg Kristyn Blankenship MD Work Phone: [facility] 12-05-2024 10:20-0400 Diastolic blood pressure 78 mm[Hg] Kristyn Blankenship MD Work Phone: [facility] 12-05-2024 10:20-0400 Heart rate 78 /min Kristyn Blankenship MD Work Phone: [facility] 12-05-2024 10:20-0400 Respiratory rate 18 /min Kristyn Blankenship MD Work Phone: [facility] 12-05-2024 10:20-0400 SaO2% (BldA) [Mass fraction] 94 % Kristyn Blankenship MD Work Phone: [facility] 12-05-2024 10:20-0400 Systolic blood pressure 102 mm[Hg] Kristyn Blankenship MD Work Phone: [facility] 11-22-2024 13:45-0400 Diastolic blood pressure 54 mm[Hg] Kristyn Blankenship MD Work Phone: [facility] 11-22-2024 13:45-0400 Heart rate 58 /min Kristyn Blankenship MD Work Phone: [facility] 11-22-2024 13:45-0400 Respiratory rate 18 /min Kristyn Blankenship MD Work Phone: [facility] 11-22-2024 13:45-0400 SaO2% (BldA) [Mass fraction] 95 % Kristyn Blankenship MD Work Phone: [facility] 11-22-2024 13:45-0400 Systolic blood pressure 139 mm[Hg] Kristyn Blankenship MD Work Phone: [facility] 11-22-2024 13:15-0400 Body temperature 97.11 [degF] Kristyn Blankenship MD Work Phone: [facility] 11-22-2024 08:25-0400 Body height 160 cm Kristyn Blankenship MD Work Phone: [facility] 11-22-2024 08:25-0400 Body mass index (BMI) [Ratio] 29.23 kg/m2 Kristyn Blankenship MD Work Phone: [facility] 11-22-2024 08:25-0400 Body weight 74.84 kg Kristyn Blankenship MD Work Phone: [facility] 11-05-2024 15:42-0400 Body height 160 cm Kristyn Blankenship MD Work Phone: [facility] 11-05-2024 15:42-0400 Body mass index (BMI) [Ratio] 29.23 kg/m2 Kristyn Blankenship MD Work Phone: [facility] 11-05-2024 15:42-0400 Body weight 74.84 kg Kristyn Blankenship MD Work Phone: [facility] 11-05-2024 15:42-0400 Diastolic blood pressure 64 mm[Hg] Kristyn Blankenship MD Work Phone: [facility] 11-05-2024 15:42-0400 Heart rate 65 /min Kristyn Blankenship MD Work Phone: [facility] 11-05-2024 15:42-0400 Respiratory rate 18 /min Kristyn Blankenship MD Work Phone: [facility] 11-05-2024 15:42-0400 SaO2% (BldA) [Mass fraction] 98 % Kristyn Blankenship MD Work Phone: [employer] 11-05-2024 15:42-0400 Systolic blood pressure 122 mm[Hg] Kristyn Blankenship MD Work Phone: [employer] 08-22-2024 10:32-0500 Body height 160 cm Henok Darlyn PA-C Work Phone: [employer] 08-22-2024 10:32-0500 Body mass index (BMI) [Ratio] 29.23 kg/m2 Henok Darlyn PA-C Work Phone: [employer] 08-22-2024 10:32-0500 Body weight 74.84 kg Henok Darlyn PA-C Work Phone: [employer] 08-22-2024 10:32-0500 Diastolic blood pressure 62 mm[Hg] Henok Darlyn PA-C Work Phone: [employer] 08-22-2024 10:32-0500 Respiratory rate 18 /min Henok Darlyn PA-C Work Phone: [employer] 08-22-2024 10:32-0500 Systolic blood pressure 104 mm[Hg] Henok Darlyn PA-C Work Phone: [employer] 08-16-2024 07:19-0500 Body temperature 97.59 [degF] Mariana King DO Work Phone: [employer] 08-16-2024 07:19-0500 Diastolic blood pressure 66 mm[Hg] Mariana King DO Work Phone: [employer] 08-16-2024 07:19-0500 Heart rate 85 /min Mariana King DO Work Phone: [employer] 08-16-2024 07:19-0500 Respiratory rate 18 /min Mariana Kign DO Work Phone: [employer] 08-16-2024 07:19-0500 SaO2% (BldA) [Mass fraction] 94 % Mariana King DO Work Phone: [employer] 08-16-2024 07:19-0500 Systolic blood pressure 135 mm[Hg] Mariana King DO Work Phone: [employer] 08-03-2024 08:32-0500 Body height 162 cm Mariana King DO Work Phone: [employer] 08-03-2024 08:32-0500 Body mass index (BMI) [Ratio] 28.58 kg/m2 Mariana King DO Work Phone: [facility] [facility] 08-03-2024 08:32-0500 Body weight 75 kg Mariana King DO Work Phone: [employer] 07-07-2024 06:03-0500 Body temperature 97.7 [degF] Wm Aracelirakola DO Work Phone: [employer] 07-07-2024 06:03-0500 Diastolic blood pressure 67 mm[Hg] Wm Mudrakola DO [facility] 07-07-2024 06:03-0500 Heart rate 69 /min Wm Mudrakola DO Work Phone: [employer] 07-07-2024 06:03-0500 Respiratory rate 12 /min Wm Mudrakola DO Work Phone: [employer] 07-07-2024 06:03-0500 SaO2% (BldA) [Mass fraction] 94 % Wm Mudrakola DO Work Phone[facility] 07-07-2024 06:03-0500 Systolic blood pressure 149 mm[Hg] Wm Mudrakola DO Work Phone: [employer] 07-05-2024 10:00-0500 Body height 162.6 cm Wm Aracelirakola DO Work Phone: [employer] 07-05-2024 10:00-0500 Body mass index (BMI) [Ratio] 27.46 kg/m2 Wm Mudrakola DO Work Phone: [employer] 07-05-2024 10:00-0500 Body weight 72.58 kg Wm Nunes DO Work Phone: [facility] [facility] 05-14-2024 15:34-0400 Body height 162.6 cm Jared Evans MD Work Phone: [facility] 05-14-2024 15:34-0400 Body mass index (BMI) [Ratio] 25.23 kg/m2 Jared Evans MD Work Phone: [facility] 05-14-2024 15:34-0400 Body weight 66.68 kg Jared Evans MD Work Phone: [facility] 04-25-2024 13:39-0400 Body height 162.6 cm Henok Mary PA-C Work Phone: [facility] 04-25-2024 13:39-0400 Body mass index (BMI) [Ratio] 25.23 kg/m2 Henok Hernandez PA-C Work Phone: [facility] 04-25-2024 13:39-0400 Body weight 66.68 kg Henok Pipernes PA-C Work Phone: [facility] 04-25-2024 13:39-0400 Diastolic blood pressure 66 mm[Hg] Henok Sunflower PA-C Work Phone: [facility] 04-25-2024 13:39-0400 Heart rate 98 /min Henok Hernandez PA-C Work Phone: [facility] 04-25-2024 13:39-0400 Respiratory rate 18 /min Henok Pipernes PA-C Work Phone: [facility] [facility] 04-25-2024 13:39-0400 SaO2% (BldA) [Mass fraction] 95 % Henok Sunflower PA-C Work Phone: [facility] [facility] 04-25-2024 13:39-0400 Systolic blood pressure 110 mm[Hg] Henok Hernandez PA-C Work Phone: [facility] [facility] 04-13-2024 08:04-0400 Heart rate 92 /min Winifred Cornell DO Work Phone: [employer] 04-13-2024 07:49-0400 Body temperature 97.2 [degF] Winifred Cornell DO Work Phone: [employer] 04-13-2024 07:49-0400 Diastolic blood pressure 89 mm[Hg] Winifred Cornell DO Work Phone: [employer] 04-13-2024 07:49-0400 Respiratory rate 20 /min Winifred Cornell DO Work Phone: [employer] 04-13-2024 07:49-0400 SaO2% (BldA) [Mass fraction] 98 % Winifred Cornell DO Work Phone: [employer] 04-13-2024 07:49-0400 Systolic blood pressure 156 mm[Hg] Winifred Cornell DO Work Phone: [employer] 04-03-2024 17:52-0400 Body height 162.6 cm Winifred Cornell DO Work Phone: [employer] 04-03-2024 17:52-0400 Body mass index (BMI) [Ratio] 27.38 kg/m2 Winifred Cornell DO Work Phone: [employer] 04-03-2024 17:52-0400 Body weight 72.35 kg Winifred Cornell DO Work Phone: [employer] 07-27-2023 14:23-0500 Body height 162.6 cm Ming Weinberg MD Work Phone: [employer] 07-27-2023 14:23-0500 Body mass index (BMI) [Ratio] 27.29 kg/m2 Ming Weinberg MD Work Phone: [employer] 07-27-2023 14:23-0500 Body weight 72.12 kg Ming Weinberg MD Work Phone: [employer] 05-14-2022 15:01-0400 Diastolic blood pressure 84 mm[Hg] Jared Velazquez PA-C Work Phone: [facility] 05-14-2022 15:01-0400 Systolic blood pressure 154 mm[Hg] Jared Velazquez PA-C Work Phone: [facility] 05-14-2022 14:32-0400 Body height 162.6 cm Jared Velazquez PA-C Work Phone: [facility] 05-14-2022 14:32-0400 Body weight 72.58 kg Jared Velazquez PA-C Work Phone: [facility] 05-14-2022 14:32-0400 Heart rate 71 /min Jared Velazquez PA-C Work Phone: [facility] 05-14-2022 14:32-0400 Respiratory rate 16 /min Jared Velazquez PA-C Work Phone: [facility] 05-14-2022 14:32-0400 SaO2% (BldA) [Mass fraction] 98 % Jared Velazquez PA-C Work Phone: [facility] 03-07-2020 09:57-0400 Body Temperature 98.71 [degF] TRA- O , [place] 03-07-2020 09:57-0400 BP Diastolic 64 mm[Hg] [facility] [place] 03-07-2020 09:57-0400 BP Systolic 161 mm[Hg] [facility]la [facility] [place] 03-07-2020 09:57-0400 Pulse (Heart Rate) 77 /min Jayla [facility] [place] 03-07-2020 09:57-0400 Pulse Oximetry 96 % JaylaGreenTrapOnlineSA[facility] [place] 03-07-2020 08:32-0400 Respiratory Rate 14 /min JaylaGreenTrapOnline- [facility], [place] 02-08-2020 20:50-0400 Body Temperature 97.5 [degF] [place] , [place] 02-08-2020 20:50-0400 BP Diastolic 81 mm[Hg] Mary[place]Trustlook- [place] , [place] 02-08-2020 20:50-0400 BP Systolic 193 mm[Hg] Maryuri King [facility] , [place] 02-08-2020 20:50-0400 Pulse (Heart Rate) 68 /min [facility] King [facility], [place] 02-08-2020 20:50-0400 Pulse Oximetry 97 % Maryuri King [facility] , [place] 02-08-2020 20:50-0400 Respiratory Rate 16 /min Maryuri King [facility] [place] Encounters Encounter Date Encounter Type Care Provider Facility Start: 05-27-2025 ambulatory Megan EVERETT Faci lity:[facility] Start: 05-13-2025 ambulatory Megan EVERETT Faci lity:[facility] Start: 05-09-2025 ambulatory Megan EVERETT Faci lity:[facility] Start: 05-06-2025 ambulatory Megan EVERETT Faci lity:[facility] Start: 04-29-2025 End: 04-29-2025 ambulatory Megan EVERETT Facility:[facility] Start: 04-04-2025 End: 04-04-2025 ambulatory Megan EVERETT Facility:[facility] Start: 04-02-2025 ambulatory Megan Luannevictoriano EVERETT Faci lity:[facility] Start: 03-28-2025 End: 03-28-2025 ambulatory Megan EVERETT Facility:[facility] Start: 03-15-2025 End: 03-15-2025 Office outpatient visit 25 minutes Andre Patel MD Work Phone: [facility] Comment on above: Acute deep vein thro mbosis (DVT) of proximal vein of lower extremity, unspecified laterality (HCC) (Primary Dx) Start: 03-15-2025 End: 03-15-2025 ambulatory MEGAN LUANNEVICTORIANO [facility] Start: 03-04-2025 End: 03-04-2025 ambulatory Megan EVERETT Facility:[facility] Start: 02-25-2025 ambulatory Megan EVERETT Faci lity:[facility] Start: 02-18-2025 ambulatory Megan EVERETT Faci lity:[facility] Start: 02-15-2025 ambulatory Megan EVREETT Faci lity:[facility] Start: 02-11-2025 End: 02-11-2025 ambulatory Megan Luannesaros OLS Facility:[facility] Start: 02-07-2025 End: 02-07-2025 ambulatory Megan Luannesaros OLS Facility:[facility] Start: 02-04-2025 ambulatory Megan Luannesaros OLS Faci lity:[facility] Start: 01-31-2025 ambulatory Megan Luannesaros OLS Faci lity:[facility] Start: 01-28-2025 ambulatory Megan Luannesaros OLS Faci lity:[facility] Start: 01-25-2025 ambulatory Megan Stroudsaros OLS Faci lity:[facility] Start: 01-22-2025 End: 01-23-2025 ambulatory Megan Luannesaros OLS Facility:[facility] Start: 01-21-2025 End: 01-21-2025 ambulatory Megan Luannesaros OLS Facility:[facility] Start: 01-17-2025 End: 01-17-2025 ambulatory Megan Luannesaros OLS Facility:[facility] Start: 01-16-2025 End: 01-16-2025 ambulatory Megan Luannesaros OLS Facility:[facility] Start: 01-15-2025 End: 01-15-2025 ambulatory Megan Luannesaros OLS Facility:[facility] Start: 01-07-2025 ambulatory Megan Luannesaros OLS Faci lity:[facility] Start: 01-02-2025 End: 01-02-2025 Orders Only [facility] Comment on above: 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) Right retinal detach ment (Primary Dx); Hemorrhagic choroidal detachment of right eye; Pseudophakia, right eye Start: 12-24-2024 End: 12-24-2024 ambulatory MEGAN MONTOYA [facility] Start: 12-24-2024 End: 12-24-2024 Office outpatient visit 15 minutes Kristyn Blankenship MD Work Phone: [facility] [place] Comment on above: Aftercare following surgery of the circulatory system (Primary Dx); PAD (peripheral artery disease) [facility] Start: 12-13-2024 End: 02-12-2025 Follow-up encounter Shivani Rayo CNP Work Phone: [facility] - [place] Comment on above: Vascular US lower ex tremity arterial duplex right with MICHELLE Start: 12-13-2024 End: 12-13-2024 ambulatory MEGAN TIDWELLFOZIA [facility] Start: 12-13-2024 End: 12-13-2024 Subsequent hospital visit by physician Kristyn Blankenship MD Work Phone: [facility] Comment on above: Skin ulcer of toe of right foot, limited to breakdown of skin (HCC); PAD (peripheral artery disease) (HCC); Aftercare following surgery of the circulatory system Start: 12-05-2024 End: 12-05-2024 ambulatory [facility] Start: 12-05-2024 End: 12-05-2024 Office outpatient visit 10 minutes Kristyn Blankenship MD Work Phone: [facility] [place] Comment on above: Skin ulcer of toe of right foot, limited to breakdown of skin (HCC) (Primary Dx); PAD (peripheral artery disease) (HCC); Aftercare following surgery of the circulatory system Start: 11-22-2024 End: 11-22-2024 ambulatory [facility] Start: 11-22-2024 End: 11-22-2024 Subsequent hospital visit by physician Kristyn Blankenship MD Work Phone: [facility] OR Start: 11-15-2024 End: 11-15-2024 ambulatory Megan Montoya [facility] Facility:[facility] Start: 11-09-2024 End: 11-13-2024 ambulatory Henok Lantigua PA-C Work Phone: [facility] [place] Comment on above: 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) (Primary Dx) Pre-op evaluation (P rimary Dx) Start: 11-09-2024 End: 11-13-2024 Preprocedural examination done Henok Lantigua PA-C Work Phone: [facility] [employer] Work Phone: Start: 11-05-2024 End: 11-05-2024 ambulatory [facility] Start: 11-05-2024 End: 11-05-2024 Office outpatient visit 25 minutes Kristyn Blankenship MD Work Phone: [facility] Comment on above: PAD (peripheral aidee ry disease) (HCC) (Primary Dx); Skin ulcer of toe of right foot, limited to breakdown of skin (HCC) Start: 10-08-2024 End: 10-08-2024 ambulatory Megan EVERETT [facility] Work Phone: Start: 10-08-2024 End: 10-08-2024 Departed Referred Megan BISWAS Start: 10-08-2024 Registered Referred Megan BISWAS Start: 10-08-2024 End: 10-08-2024 ambulatory Megan EVERETT Facility:[facility] Start: 10-01-2024 End: 10-01-2024 Patient encounter procedure Savana Lopez MD Work Phone: Ophthalmology Comment on above: 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); Right retinal detachment; Postoperative eye state; Pseudophakia, right eye; Subluxation of right lens Start: 10-01-2024 End: 10-01-2024 ambulatory SAVANA LOPEZ Facility:[facility] Start: 09-17-2024 End: 09-17-2024 ambulatory Megan EVERETT [facility] Work Phone: Start: 09-17-2024 End: 09-17-2024 Departed Referred Megan BISWAS Start: 09-17-2024 Registered Referred Megan BISWAS Start: 09-17-2024 End: 09-17-2024 ambulatory Megan EVERETT Facility:[facility] Start: 09-10-2024 End: 09-10-2024 ambulatory Megan EVERETT [facility] Work Phone: Start: 09-10-2024 End: 09-10-2024 Departed Referred Megan BISWAS Start: 09-10-2024 Registered Referred Megan BISWAS Start: 09-10-2024 End: 09-10-2024 ambulatory Megan EVERETT Facility:[facility] Start: 09-05-2024 End: 09-05-2024 ambulatory SAVANA LOPEZ Facility:[facility] Start: 09-05-2024 End: 09-05-2024 Patient encounter procedure Savana Lopez MD Work Phone: Ophthalmology Comment on above: Postoperative eye st ate; Hemorrhagic choroidal detachment of right eye; Pseudophakia, right eye; Subluxation of right lens Start: 09-03-2024 End: 09-03-2024 ambulatory Megan EVERETT [facility] Work Phone: Start: 09-03-2024 End: 09-03-2024 Departed Referred Megan BISWAS Start: 09-03-2024 Registered Referred Megan BISWAS Start: 09-03-2024 End: 09-03-2024 ambulatory Megan EVERETT Facility:[facility] Start: 08-22-2024 End: 08-22-2024 ambulatory [facility] Start: 08-22-2024 End: 08-22-2024 Office outpatient visit 15 minutes Henok Lantigua PA-C Work Phone: [facility] [place] Comment on above: Acute deep vein thro mbosis (DVT) of iliac vein of right lower extremity (HCC) (Primary Dx); PAD (peripheral artery disease) (HCC) Start: 08-20-2024 End: 08-20-2024 ambulatory Megan Luannevictoriano EVERETT [facility] Work Phone: Start: 08-20-2024 End: 08-20-2024 Departed Referred Megan BISWAS Start: 08-20-2024 End: 08-20-2024 ambulatory Megan EVERETT Facility:[facility] Start: 08-03-2024 End: 08-03-2024 Subsequent hospital visit by physician [facility] Exam Room [address] [facility] [address] Comment on above: Arrived Start: 08-03-2024 End: 08-16-2024 ambulatory [facility] Start: 08-03-2024 End: 08-16-2024 Emergency department patient visit Mariana Eduardo GARZA Work Phone: [facility] Comment on above: Aspiration pneumonit is (CMS/HCC) ([facility]) (Primary Dx); Vomiting and diarrhea; LORENZA (acute kidney injury) (HCC) Start: 08-01-2024 End: 08-01-2024 ambulatory SAVANA A MAMMO Facility:[facility] Start: 08-01-2024 End: 08-01-2024 Patient encounter procedure [...] Start: 07-27-2024 ambulatory SAVANA A MAMMO Facility: [facility] Start: 07-23-2024 End: 07-23-2024 ambulatory SAVANA A MAMMO Facility:[facility] Start: 07-23-2024 End: 07-23-2024 Patient encounter procedure [...] 07-12-2024 Evaluation and management of inpatient SELF Facility:[facility] Start: 07-12-2024 End: 07-12-2024 Orders Only Namrata [...] 07-09-2024 Evaluation and management of inpatient SELF Facility:[facility] Start: 07-09-2024 End: 07-09-2024 Unlisted evaluation and [...] End: 07-18-2024 Evaluation and management of inpatient [facility] Facility:[facility] Start: 07-07-2024 Emergency department patient visit PROVIDER NOT IN SYSTEM Facility:[facility] Start: 07-06-2024 End: 07-06-2024 Telephone encounter Ryan Elizondo MD Work Phone: Ophthalmology Start: 07-05-2024 End: 07-07-2024 ambulatory [facility] Start: 07-05-2024 End: 07-07-2024 Emergency department patient visit Wm Nunes DO Work Phone: [facility] Trauma Neuro Progressive Care Unit PCU 3W Comment on above: Vision loss of right eye (Primary Dx); Acute intractable headache, unspecified headache type; Visual disturbance, subjective Start: 06-19-2024 End: 07-03-2024 ambulatory DEVIKA LEUNG Facility:[facility] Start: 06-19-2024 End: 07-03-2024 Subsequent hospital visit by physician Devika Leung DO Work Phone: [facility] Comment on above: [I63.9] - Cerebral i nfarction Start: 06-10-2024 End: 06-19-2024 Evaluation and management of inpatient TORSTEN SILVA Facility:[facility] Start: 05-22-2024 End: 05-22-2024 ambulatory [facility] Start: 05-21-2024 End: 05-21-2024 ambulatory HARMONY GREY [facility] Start: 05-21-2024 End: 05-21-2024 Anticoagulant drug monitoring Harmony Grey [facility] Work Phone: [facility] Comment on above: Atrial fibrillation, unspecified type (HCC); Acute venous embolism and thrombosis of deep vessels of proximal end of right lower extremity (HCC) Start: 05-14-2024 End: 05-14-2024 Subsequent hospital visit by physician Jared Evans MD Work Phone: [facility] Non-Invasive Cardiology Comment on above: Paroxysmal atrial fi brillation (HCC) Start: 05-14-2024 End: 05-14-2024 ambulatory [facility] Start: 05-09-2024 End: 05-09-2024 ambulatory [facility] Start: 05-09-2024 End: 05-09-2024 Anticoagulant drug monitoring Patty Duggan [facility] Work Phone: [facility] Comment on above: Atrial fibrillation, unspecified type (HCC); Acute venous embolism and thrombosis of deep vessels of proximal end of right lower extremity (HCC) Start: 05-01-2024 End: 05-01-2024 ambulatory [facility] Start: 05-01-2024 End: 05-01-2024 Anticoagulant drug monitoring Won Tipton RN [facility] Comment on above: Atrial fibrillation, unspecified type (HCC); Acute venous embolism and thrombosis of deep vessels of proximal end of right lower extremity (HCC) Start: 04-27-2024 End: 04-27-2024 Refill Phyllis Aguilera RN Work Phone: [facility] Comment on above: Deep vein thrombosis (DVT) of lower extremity, unspecified chronicity, unspecified laterality, unspecified vein (HCC); Atrial fibrillation, unspecified type (HCC); Acute venous embolism and thrombosis of deep vessels of proximal end of right lower extremity (HCC) Start: 04-25-2024 End: 04-25-2024 Office outpatient visit 15 minutes Henok Hernandez PA-C Work Phone: [facility] [place] Comment on above: Acute deep vein thro mbosis (DVT) of iliac vein of right lower extremity (HCC) (Primary Dx); PAD (peripheral artery disease) (HCC) Start: 04-25-2024 End: 04-25-2024 ambulatory [facility] Start: 04-23-2024 End: 04-23-2024 ambulatory [facility] Start: 04-20-2024 End: 07-20-2024 Transcribe Orders Jared Evans MD Work Phone: [facility] Central Scheduling Comment on above: Paroxysmal atrial fi brillation (HCC) (Primary Dx) Start: 04-19-2024 End: 04-19-2024 ambulatory [facility] Start: 04-19-2024 End: 04-19-2024 Anticoagulant drug monitoring Marybeth Rahman [facility]tico[facility] Management Service Comment on above: Atrial fibrillation, unspecified type (HCC); Acute venous embolism and thrombosis of deep vessels of proximal end of right lower extremity (HCC) Start: 04-16-2024 End: 04-16-2024 ambulatory ANTHONY YEE [facility] Start: 04-14-2024 End: 04-14-2024 Anticoagulant drug monitoring Ulices Orr PharmD [facility] Comment on above: Deep vein thrombosis (DVT) of lower extremity, unspecified chronicity, unspecified laterality, unspecified vein (HCC) (Primary Dx) Start: 04-03-2024 End: 04-13-2024 Evaluation and management of inpatient Winifred Cornell DO Work Phone: [facility] Medical Unit 4N Comment on above: Ischemic leg (Primar y Dx); Right leg pain; Peripheral arterial disease (HCC); Right leg weakness; Atrial fibrillation, unspecified type (HCC) Start: 07-27-2023 End: 01-10-2024 Office outpatient new 30 minutes Ming Weinberg MD Work Phone: [facility] Comment on above: 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) Start: 06-15-2023 End: 06-15-2023 Subsequent hospital visit by physician Jared Evans MD Work Phone: [facility] MRI Comment on above: Abnormal findings on diagnostic imaging of other specified body structures; Pain in left leg Start: 06-01-2023 Transcribe Orders Jared [facility] MD [facility] Comment on above: Abnormal findings on diagnostic imaging of other specified body structures (Primary Dx); Pain in left leg Start: 05-24-2023 End: 05-24-2023 Subsequent hospital visit by physician Jared Evans MD Work Phone: [facility] US Comment on above: Other specified soft tissue disorders Start: 05-23-2023 Transcribe Orders Jared Evans MD Work Phone[facility] Comment on above: Other specified soft tissue disorders (Primary Dx) Start: 03-08-2023 End: 03-08-2023 Subsequent hospital visit by physician Jared Evans MD Work Phone: [facility] CT Comment on above: Localized swelling, mass and lump, neck Start: 02-28-2023 Transcribe Orders Jared Evans MD Work Phone[facility] Comment on above: Localized swelling, mass and lump, neck (Primary Dx) Start: 02-22-2023 End: 02-22-2023 Subsequent hospital visit by physician Jared Evans MD Work Phone: [facility] US Comment on above: Localized swelling, mass and lump, neck Start: 02-17-2023 Transcribe Orders Jared Evans MD Work Phone[facility] Comment on above: Localized swelling, mass and lump, neck (Primary Dx) Start: 07-06-2022 Telephone encounter Inés ENCINAS Comment on above: Follow Up Phone Call (All Clear) Start: 06-21-2022 End: 06-21-2022 Evaluation and management of inpatient SIM ELIZABETH Facility:[facility] Start: 06-19-2022 ambulatory Tamara Olivares [facility] [place] [address] CARD/HF/PD Start: 06-16-2022 End: 06-29-2022 Evaluation and management of inpatient BERNIE BIRD Facility:[facility] Start: 05-27-2022 Telephone encounter Jared pennington MD [...] metabolic pane l calcium total Devika A Maduh DO Work Phone: Start: 06-10-2024 Thyrotropin [Units/v olume] in Serum or Plasma Wm Revert.IOla DO Work Phone: Start: 05-22-2024 Follow-up visit [...] on above: Performed By: #### L [id number] ####Crabber: VELMA VALADEZ ([phone])[facility] ([facility])[address] [place] [address] Start: 04-06-2024 Blood typing serologic abo Kristyn [...] abdl aorta&bi il iofem w/contrast&postp Bernie Doner [employer] Work Phone: Start: 04-03-2024 Ct head/brain w/o co ntrast material Bernie Doner [employer] Work Phone: Start: 04-03-2024 Comprehensive metabo lic panel Bernie Doner [employer] Work Phone: Start: 04-03-2024 Ecg routine ecg w/le ast 12 lds trcg only w/o i&r Bernie He [employer] Work Phone: Start: 06-15-2023 Mri lower extrem oth /thn jt w/o & w/contr matr Jared Evans MD Work Phone: Start: 05-24-2023 Dup-scan xtr veins unilateral/limited study Jared Evans MD Work Phone: Start: 06-21-2022 Antibody screen BERNIE BIRD Comment on above: Order Comment: Speci men Type: BLOOD SPECIMEN Ordering Facility: [facility] Address: [address] [place], [place] [id number] Performed By: #### T SCR #### [facility] [id number] [address] [place] [address] [place] Start: 03-07-2020 OPERATIVE REPORT 3m Sca nning Start: 02-08-2020 INCISION AND DRAINAGE R mona Mora Work Phone: Plan of Treatment Date Care Activity Detail Author Start: 02-15-2029 DTaP/Tdap/Td vaccine (2 - Td) DTaP/Tdap/Td vaccine (2 - Td) [facility] [place] Start: 02-15-2029 DTaP/Tdap/Td Vaccines (2 - Td or Tdap) DTaP/Tdap/Td Vaccines (2 - Td or Tdap) [facility] Start: 02-15-2029 Urine microalbumin profile DTaP,Tdap,Td Vaccine (2 - Td or Tdap) [facility] Start: 08-05-2027 Diabetes Screening Diabetes Screening [facility] Start: 07-07-2027 Diabetes Screening Diabetes Screening [facility] Start: 07-06-2027 Diabetes Screening Diabetes Screening [facility] Start: 06-21-2027 Diabetes Screening Diabetes Screening [facility] Start: 08-16-2025 End: 01-23-2026 OCT MACULA CIRRUS OD (RIGHT EYE) OCT MACULA CIRRUS OD (RIGHT EYE) [facility] Imaging Routine Postoperative eye state 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, right eye Subluxation of right lens Expected: 08/16/2025, Expires: 01/23/2026 [facility] Work Phone: Comment on above: Expected: 08/16/2025, Expires: Start: 08-05-2025 Diabetes: Estimated Glomerular Filtration Rate for Kidney Health Diabetes: Estimated Glomerular Filtration Rate for Kidney Health [facility] Start: 08-04-2025 Diabetes: Estimated Glomerular Filtration Rate for Kidney Health Diabetes: Estimated Glomerular Filtration Rate for Kidney Health [facility] Start: 07-31-2025 End: 01-07-2026 Right eye Photo documentation FUNDUS PHOTOS OD (RIGHT EYE) [facility] Imaging Routine Postoperative eye state 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, right eye Subluxation of right lens Expected: 07/31/2025, Expires: 01/07/2026 [facility] Work Phone: Comment on above: Expected: 07/31/2025, Expires: Start: 07-07-2025 Diabetes: Estimated Glomerular Filtration Rate for [facility]ney Health Diabetes: Estimated Glomerular Filtration Rate for Kidney Health [facility] Start: 06-24-2025 DIABETES SCREEN DIABETES SCREEN [facility] Start: 06-10-2025 Thyroid stimulating hormone measurement TSH Level [facility] Start: 05-18-2025 DIABETES SCREEN DIABETES SCREEN [facility] Start: 03-18-2025 Influenza vaccination [facility] Start: 03-15-2025 End: 03-15-2025 Patient encounter procedure 03/15/2025 11:15 AM EDT Office Visit [facility] [place] [address] [place] [phone] Andre Patel MD [address] [facility] [address] [place] [address] [facility] [place] Start: 01-02-2025 End: 01-02-2025 Patient encounter procedure 01/02/2025 9:45 AM EDT Office Visit [facility] [address] [place] [address] Savana Lopez MD [address] [place] [address] *3 M, DFE Ophthalmology Comment on above: *3 M, DFE Start: 12-24-2024 End: 12-24-2024 Patient encounter procedure 12/24/2024 2:30 PM EDT Office Visit [facility] [place] [address] [place] [phone] Kristyn Blankenship MD [address] [place] [address] [facility] [place] Start: 12-05-2024 End: 12-05-2024 Patient encounter procedure 12/05/2024 10:00 AM EDT Office Visit [facility] [place] [address] [place] [phone] Kristyn Blankenship MD [address] [place] [address] [facility] [place] Start: 11-22-2024 End: 11-22-2024 Admission to same day surgery center 11/22/2024 9:30 AM EDT - 11/22/2024 11:30 AM EDT Surgery [facility] OR [address] [facility] [place] [address] Kristyn Blankenship MD [address] [place] [address] AORTOILIAC ANGIOGRAPHY, RIGHT LOWER EXTREMITY ANGIOGRAPHY WITH RUNOFF, POSSIBLE SUPERFICIAL FEMORAL ARTERY/POPLITEAL/TIBIAL ANGIOPLASTY/STENTING [04017 (CPT )] [facility] MAIN OR Comment on above: AORTOILIAC ANGIOGRAPHY, RIGHT LOWER EXTR EMITY ANGIOGRAPHY WITH RUNOFF, POSSIBLE SUPERFICIAL FEMORAL ARTERY/POPLITEAL/TIBIAL ANGIOPLASTY/STENTING [59497 (CPT )] Start: 11-22-2024 End: 11-22-2024 Angiography extremity unilateral rs&i ANGIOGRAM, EXTREMITY Skin ulcer of right great toe (HCC) Critical limb ischemia of right lower extremity (HCC) 11/22/2024 9:30 AM EDT [facility] Operating Room Start: 11-22-2024 Subsequent hospital visit by physician 11/22/2024 9:30 AM EDT Hospital Encounter [facility] [address] [place] [address] Kristyn Blankenship MD [address] [place] [phone] [facility] Start: 11-20-2024 Subsequent hospital visit by physician 11/20/2024 Hospital Encounter [facility] [address] [place] [address] Kristyn Blankenship MD [address] [place] [id number] [facility] MA[facility] OR Start: 11-13-2024 End: 11-13-2025 Basic metabolic 1998 panel - Serum or Plasma Basic metabolic panel Lab Routine Pre-op evaluation Expected: 11/13/2024 (Approximate), Expires: 11/13/2025 [facility] Comment on above: Expected: 11/13/2024 (Approximate), Expi res: 11/13/2025 Start: 11-13-2024 End: 11-13-2025 CBC W Auto Differential panel - Blood CBC auto differential Lab Routine Pre-op evaluation Expected: 11/13/2024 (Approximate), Expires: 11/13/2025 [facility] Work Phone: Comment on above: Expected: 11/13/2024 (Approximate), Expi res: 11/13/2025 Start: 10-01-2024 End: 10-01-2024 Patient encounter procedure 10/01/2024 10:30 AM EDT Office Visit [facility] [address] [address] Savana Lopez MD [address] [place] [address] 26 Day F/U ~ DFE OD bscan OD . Ophthalmology Comment on above: 26 Day F/U ~ DFE OD bscan OD . Start: 08-22-2024 End: 08-22-2024 Patient encounter procedure 08/22/2024 10:30 AM EST Office Visit [facility] [place] [address] [place] [phone] Henok Lantigua PA-C [address] [place] [phone] [facility] [place] Start: 08-15-2024 End: 08-15-2024 Patient encounter procedure 08/15/2024 9:45 AM EST Office Visit [facility] [address] [place] [address] Savana Lopez MD [address] [place] [address] *1 month post op Ophthalmology Comment on above: *1 month post op Start: 08-06-2024 End: 08-06-2024 Patient encounter procedure 08/06/2024 11:00 AM EST Office Visit [facility] [place] [address] [place] [phone] Henok Lantigua PA-C [address] [place] [phone] [facility] [place] Start: 08-01-2024 End: 08-01-2024 Patient encounter procedure Ophthalmology Comment on above: *1 week post op Start: 07-31-2024 End: 07-31-2024 Patient encounter procedure [facility] Start: 07-27-2024 End: 07-27-2024 Admission to same day surgery center 07/27/2024 10:50 AM EST - 07/27/2024 12:40 PM EST Surgery Ophthalmology [address] [address] Savana Lopez MD [address] [place] [address] VITRECTOMY 25G [facility] PARS PLANA APPROACH W/ REMOVAL OF PRERETINAL CELLULAR MEMBRANE Ophthalmology Comment on above: VITRECTOMY 25G [facility] PARS PLANA APPROACH W/ REMOVAL OF PRERETINAL CELLULAR MEMBRANE Start: 07-27-2024 End: 07-27-2024 Aspiration/release vitreous subretinal/choroidal RELEASE OF VITREOUS, CHOROIDAL FLUID, PARS PLANA APPROACH Hemorrhagic choroidal detachment of right eye 07/27/2024 10:50 AM EST [facility] Start: 07-27-2024 Subsequent hospital visit by physician 07/27/2024 10:50 AM EST Hospital Encounter Ophthalmology [address] [address] Savana Lopez MD [address] [place] [address] 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] Ophthalmology Comment on above: Hemorrhagic choroidal detachment of righ t eye [H31.411] Start: 07-27-2024 End: 07-27-2024 Vitrectomy pars plana remove preretinal membrane VITRECTOMY 25G [facility] PARS PLANA APPROACH W/ REMOVAL OF PRERETINAL CELLULAR MEMBRANE Hemorrhagic choroidal detachment of right eye 07/27/2024 10:50 AM EST [facility] Start: 07-23-2024 End: 07-23-2024 Patient encounter procedure 07/23/2024 10:45 AM EST Office Visit [facility] [address] [address] Savana Lopez MD [address] [place] [address] *1 W, DFE OD/BSCAN OD/OPTOS OD Ophthalmology Comment on above: *1 W, DFE OD/BSCAN OD/OPTOS OD Start: 07-18-2024 Advance Directive Discussion Advance Directive Discussion [facility] Start: 07-18-2024 Medicare Advantage Annual Wellness Visit Medicare Advantage Annual Wellness Visit [facility] [employer] Start: 07-16-2024 End: 07-16-2024 Patient encounter procedure Ophthalmology Comment on above: Please schedule this patient with Dr. Steffen grey Tuesday07/16/24. Ok to over book per Dr. Lopez *NEW, HEMORRHAGIC CH OROIDALS/MONOCULAR, DFE OD/g SCAN OD ok per DM Start: 07-13-2024 End: 07-13-2024 Aspiration/release vitreous subretinal/choroidal ASPIRATION VITREOUS, CHOROIDAL FLUID, PARS PLANA APPROACH Hemorrhagic choroidal detachment of right eye 07/13/2024 2:04 PM EST [facility] Start: 07-13-2024 End: 07-13-2024 Evaluation and management of inpatient 07/13/2024 2:04 PM EST - 07/13/2024 3:24 PM EST Surgery Ophthalmology [address] [address] Savana Lopez MD [address] [place] [address] ASPIRATION VITREOUS, CHOROIDAL FLUID, PARS PLANA APPROACH Ophthalmology Comment on above: ASPIRATION VITREOUS, CHOROIDAL FLUID, PA RS PLANA APPROACH Start: 06-04-2024 End: 05-21-2025 POCT Prothrombin Time INR ([facility]) POCT Prothrombin Time INR ([facility]) Lab Routine Atrial fibrillation, unspecified type (HCC) Acute venous embolism and thrombosis of deep vessels of proximal end of right lower extremity (HCC) Expected: 06/04/2024, Expires: 05/21/2025 [facility] [employer] [facility] Work Phone: Comment on above: Expected: 06/04/2024, Expires: Start: 06-04-2024 End: 06-04-2024 Anticoagulant drug monitoring 06/04/2024 1:15 AM EST Anticoagulation - Warfarin Visit [facility] [id number] [place] [address] [facility] Start: 05-22-2024 End: 05-22-2024 Patient encounter procedure 05/22/2024 3:00 PM EST Office Visit [facility] Cardiology - [place] [address] [place] [address] [address] [place] [phone] Hermila Padilla MD [address] [facility] [address] [place], [place] [phone] [facility] Cardiology - [place] Godinez Start: 05-22-2024 End: 05-22-2024 Anticoagulant drug monitoring 05/22/2024 12:45 AM EST Anticoagulation - Warfarin Visit [facility] [address] [phone] [facility] Start: 05-14-2024 End: 05-14-2024 Patient encounter procedure 05/14/2024 2:00 PM EDT Appointment [facility] Non-Invasive Cardiology [address] [place] [phone] [facility] Non-Invasive Cardiology Start: 05-08-2024 End: 05-01-2025 POCT Prothrombin Time INR ([facility]) POCT Prothrombin Time INR ([facility]) Lab Routine Atrial fibrillation, unspecified type (HCC) Acute venous embolism and thrombosis of deep vessels of proximal end of right lower extremity (HCC) Expected: 05/08/2024 (Approximate), Expires: 05/01/2025 [facility] Work Phone: Comment on above: Expected: 05/08/2024 (Approximate), Expi res: 05/01/2025 Start: 05-08-2024 End: 05-08-2024 Anticoagulant drug monitoring 05/08/2024 1:30 AM EDT Anticoagulation - Other Visit [facility] [address] [phone] [facility] Start: 05-01-2024 End: 05-01-2024 Anticoagulant drug monitoring 05/01/2024 Anticoagulation - Warfarin Visit [facility] [address] [phone] [facility] Start: 04-23-2024 End: 04-19-2025 POCT Prothrombin Time INR ([facility]) POCT Prothrombin Time INR ([facility]) Lab Routine Atrial fibrillation, unspecified type (HCC) Acute venous embolism and thrombosis of deep vessels of proximal end of right lower extremity (HCC) Expected: 04/23/2024 (Approximate), Expires: 04/19/2025 [employer] Work Phone: Comment on above: Expected: 04/23/2024 (Approximate), Expi res: 04/19/2025 Start: 04-23-2024 End: 04-23-2024 Patient encounter procedure 04/23/2024 9:15 AM EDT [facility] [place] [address] [place] [phone] Henok Hernandez PA-C [address] [place], [place] [phone] [facility] [place] Start: 04-23-2024 End: 04-23-2024 Anticoagulant drug monitoring 04/23/2024 1:15 AM EDT Anticoagulation - Warfarin [facility] [address] [place] [phone] [facility] Start: 04-19-2024 End: 04-19-2024 Anticoagulant drug monitoring 04/19/2024 1:00 AM EDT Anticoagulation - Warfarin [facility] [address] [place] [phone] [facility] Start: 04-16-2024 End: 04-16-2025 POCT Prothrombin Time INR ([facility]) POCT Prothrombin Time INR ([facility]) Lab Routine Deep vein thrombosis (DVT) of lower extremity, unspecified chronicity, unspecified laterality, unspecified vein (HCC) Expected: 04/16/2024, Expires: 04/16/2025 [employer] Work Phone: Comment on above: Expected: 04/16/2024, Expires: Start: 03-18-2024 Covid-19 Vaccine ( season) Covid-19 Vaccine ( season) [facility] Start: 03-18-2024 Influenza vaccination Influenza Vaccine (#1) [facility] [employer] Start: 07-18-2023 Advance Directive Discussion Advance Directive Discussion [facility] Start: 07-18-2023 Medicare Advantage Annual Wellness Visit Medicare Advantage Annual Wellness Visit [facility] Start: 03-18-2023 Influenza vaccination Influenza Vaccine (#1) [facility] Start: 03-18-2022 Influenza vaccination INFLUENZA (#1) [facility] Start: 07-18-2021 ADVANCE DIRECTIVE DISCUSSION ADVANCE DIRECTIVE DISCUSSION [facility] Start: 07-18-2021 DEPRESSION ASSESSMENT DEPRESSION ASSESSMENT [facility] Start: 03-18-2020 Influenza vaccination Flu vaccine (#1) [place] Start: 03-13-2020 End: 03-13-2020 Office Visit 03/13/2020 Office Visit Orthopedic Surgery Jayla Mcmahan MD [address] [facility] [address] [place] [address] [phone] [facility] Medical [facility] [place] Start: 03-07-2020 Hospital Encounter 03/07/2020 Hospital Encounter IP Unit Jayla Mcmahan MD [address] [facility] [address] [place], [place] [phone] [facility] Serrato Dept Start: 03-06-2020 Annual Wellness Visit (AWV) Annual Wellness Visit (AWV) [place] Start: 04-12-2019 Pneumococcal Vaccine: 50+ Years (2 of 2 - PPSV23) Pneumococcal Vaccine: 50+ Years (2 of 2 - PPSV23) [facility] Start: 04-12-2019 Pneumococcal Vaccine: 65+ Years (2 - PPSV23 if available, else PCV20) Pneumococcal Vaccine: 65+ Years (2 - PPSV23 if available, else PCV20) [facility] Start: 04-12-2019 Pneumococcal Vaccine: 65+ Years (2 - PPSV23 or PCV20) Pneumococcal Vaccine: 65+ Years (2 - PPSV23 or PCV20) [facility] Start: 04-12-2019 Pneumococcal Vaccine: 65+ Years (2 of 2 - PPSV23 or PCV20) Pneumococcal Vaccine: 65+ Years (2 of 2 - PPSV23 or PCV20) [facility] Start: 02-13-2016 DIABETES SCREEN DIABETES SCREEN [facility] Start: 09-24-2014 RSV Immunization for Adults (1 - 1-dose 75+ series) RSV Immunization for Adults (1 - 1-dose 75+ series) [facility] Start: 04-23-2010 DIABETES SCREEN DIABETES SCREEN [facility] Start: 09-24-2004 BONE DENSITY BONE DENSITY [facility] Start: 09-24-2004 Pneumococcal 65+ years Vaccine (2 of 2 - PPSV23) Pneumococcal 65+ years Vaccine (2 of 2 - PPSV23) [place] Start: 09-24-2004 PNEUMOCOCCAL: 65+ (1 - PCV) PNEUMOCOCCAL: 65+ (1 - PCV) [facility] Start: 09-24-2004 Screening for osteoporosis Bone Density Screening [facility] Start: 1999 RSV Immunization aged 60 or older (1 - 1-dose 60+ series) RSV Immunization aged 60 or older (1 - 1-dose 60+ series) [facility] Start: 09-24-1994 Screening for osteoporosis DEXA (modify frequency per FRAX score) [place] Start: 09-24-1989 Shingles Vaccine (1 of 2) Shingles Vaccine (1 of 2) [place] Start: 09-24-1989 SHINGRIX VACCINE (1 of 2) SHINGRIX VACCINE (1 of 2) [facility] Start: 09-24-1989 Zoster Vaccines (1 of 2) Zoster Vaccines (1 of 2) [facility] Start: 09-24-1958 Urine microalbumin profile DTAP,TDAP,TD (1 - Tdap) [facility] Start: 09-24-1958 Zoster Vaccines (1 of 2) Zoster Vaccines (1 of 2) [facility] Start: 09-24-1957 Anxiety Screening Anxiety Screening [facility] Start: 09-24-1957 Depression Screening Depression Screening [facility] Start: 09-24-1957 Diabetes: Urine Albumin-Creatinine Ratio for Kidney Health Diabetes: Urine Albumin-Creatinine Ratio for Kidney Health [facility] Start: 09-24-1957 SPIROMETRY SPIROMETRY [facility] Start: 1951 Depression Monitoring Depression Monitoring [facility] Start: 1951 Depresssion Monitoring Depresssion Monitoring [facility] Start: 09-24-1945 PNEUMOCOCCAL: 65+ (1 - PCV) PNEUMOCOCCAL: 65+ (1 - PCV) [facility] Start: 09-24-1944 COVID-19 Vaccine (#1) COVID-19 Vaccine (#1) [facility] Start: 03-27-1940 COVID-19 VACCINE (#1) COVID-19 VACCINE (#1) [facility] Start: 1939 Creatinine measurement Creatinine monitoring Aneumed [facility] [place] Start: 1939 Lipid panel Lipid Panel [facility] Start: 1939 Medicare Advantage Annual Wellness Visit (AWV) Medicare Advantage Annual Wellness Visit (AWV) [facility] Start: 1939 Potassium monitoring Potassium monitoring [facility] [place], [place] Start: 1939 Screening for osteoporosis Bone Density Scan [facility] Start: 1939 Thyroid stimulating hormone measurement TSH Level [facility] Angiography extremit y unilateral rs&i AORTOGRAM, WITH SERIALOGRAPHY Critical limb ischemia of right lower extremity (HCC) [facility] Operating Room Aortography abdomina l serialography rs&i AORTOGRAM, WITH SERIALOGRAPHY Critical limb ischemia of right lower extremity (HCC) [facility] Operating Room BSCAN OD (RIGHT EYE) BSCAN OD (R IGHT EYE) OPHT Imaging Routine Hemorrhagic choroidal detachment of right eye 07/09/2024 9:09 AM EST [facility] Work Phone: End: 01-03-2026 BSCAN OD (RIGHT EYE) BSCAN OD (RIGHT EYE) OPHT Imaging Routine Hemorrhagic choroidal detachment of right eye Dislocation of intraocular lens, initial encounter 1 Occurrences starting 07/12/2024 until 01/03/2026 [facility] Work Phone: Comment on above: 1 Occurrences starting 07/12/2024 until 01/03/2026 End: 01-07-2026 BSCAN OD (RIGHT EYE) BSCAN OD (RIGHT EYE) OPHT Imaging Routine Postoperative eye state 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, right eye Subluxation of right lens 1 Occurrences starting 07/16/2024 until 01/07/2026 [facility] Comment on above: 1 Occurrences starting 07/16/2024 until 01/07/2026 End: 02-27-2026 BSCAN OD (RIGHT EYE) BSCAN OD (RIGHT EYE) OPHT Imaging Routine Postoperative eye state 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, right eye Subluxation of right lens 1 Occurrences starting 09/05/2024 until 02/27/2026 [facility] Work Phone: Comment on above: 1 Occurrences starting 09/05/2024 until 02/27/2026 Camera fundoscopy FUNDUS PHOTOS OU (BOTH EYES) [facility] Imaging Routine Hemorrhagic choroidal detachment of right eye 07/09/2024 8:35 AM [facility] End: 03-08-2023 CT Neck W contrast IV [employer] Work Phone: Comment on above: Once for 1 Occurrences starting 03/08/20 until 03/08/2023 Incision/Drainage Incision/Drain age Procedures Routine 02/08/2020 7:17 PM EDT [facility] OUTSIDE PROCEDURE SCAN OUTSIDE P ROCEDURE SCAN Procedures Ordered: 02/21/2023 [employer] Comment on above: Ordered: 02/21/2023 OUTSIDE PROCEDURE SCAN OUTSIDE P ROCEDURE SCAN Procedures Ordered: 03/07/2023 [employer] Comment on above: Ordered: 03/07/2023 OUTSIDE PROCEDURE SCAN OUTSIDE P ROCEDURE SCAN Procedures Ordered: 05/24/2023 [employer] Comment on above: Ordered: 05/24/2023 OUTSIDE PROCEDURE SCAN OUTSIDE P ROCEDURE SCAN Procedures Ordered: 06/14/2023 [employer] Comment on above: Ordered: 06/14/2023 Oxygen therapy [Minimum Data Set] Initiate Oxygen Therapy Protocol Respiratory Care Routine Daily until discontinued starting 03/07/2020 [facility] Comment on above: Daily until discontinued starting 2019 End: 02-22-2023 US Head and neck soft tissue [employer] Work Phone: Comment on above: Once for 1 Occurrences starting 02/23/20 until 02/22/2023 End: 03-06-2020 XR FINGER RIGHT (MIN 2 VIEWS) XR FINGER RIGHT (MIN 2 VIEWS) Imaging Routine Once for 1 Occurrences starting 03/06/2020 until 03/06/2020 [facility] Comment on above: Once for 1 Occurrences starting 03/06/20 until 03/06/2020 XR FINGER RIGHT (MIN 2 VIEWS) XR FINGER RIGHT (MIN 2 VIEWS) Imaging Routine 03/06/2020 10:20 AM EDT [facility] Immunizations Immunization Date Immunization Notes Care Provider Abe faustin 05-19-2021 Influenza, High-dose Seasonal, Quadrivalent, Preservative Free Ming Weinberg MD Work Phone: [employer] 05-19-2021 influenza virus vaccine, unspecified formulation Jared Evans MD Work Phone: [facility] [employer] 02-15-2019 pneumococcal conjuga te vaccine, 13 valent Ming Weinberg MD Work Phone: [employer] 02-15-2019 tetanus toxoid, redu larissa diphtheria toxoid, and acellular pertussis vaccine, adsorbed Ming Weinberg MD Work Phone: [employer] 06-29-2013 influenza, high dose seasonal, preservative-free Ming Weinberg MD Work Phone: [employer] NEGATED: Highlighted row has not occurred!04-05-2024 Seasonal trivalent influenza vaccine, adjuvanted, preservative free Winifred Cornell DO Work Phone: [employer] Comment on above: Deferred: Patient Re fused Payers Date Payer Category Payer Unknown [id number] 2024 Self-pay 2023 Private Health Insurance HUMANA HUMANA MEDICARE SUPPLEMENT [id number] 2023-[address] [place] [phone] Commercial [id number] 2017 Medicare [id number] 2017 Medicare (Managed Care) JURGENA M EDMIKERE [id number] 2017 Medicare HMO HUMANA MEDICARE [id number] 2017 Medicare [id number] [id number]. 2.7.3.600713.315 1940 Unknown [id number] 2.16.840.1.237999.3.579. 2.594 Unknown [id number]. 1.13.159. 2.7.3.001472.315 Unknown [id number] 2.16.840.1.315422.3.579. 2.462 Unknown [id number] 2.16.840.1.119678.3.579. 2.462 Unknown [id number] 2.16.840.1.228051.3.579. 2.462 Unknown [id number] 2.16.840.1.106078.3.579. 2.462 Unknown [id number] 2.16.840.1.089453.3.579. 2.462 Unknown [id number] 2.16.840.1.826129.3.579. 2.462 Unknown [id number] 2.16.840.1.056268.3.579. 2.462 Unknown [id number] 2.16.840.1.053245.3.579. 2.462 Unknown [id number] 2.16.840.1.352361.3.579. 2.462 Unknown [id number] 2.16.840.1.786713.3.579. 2.462 Unknown [id number] 2.16.840.1.584933.3.579. 2.462 Unknown [id number] 2.16.840.1.909805.3.579. 2.462 Unknown [id number] 2.16840.1.426117.3.579. 2.462 Unknown [id number] 2.16.840.1.661482.3.579. 2.462 Unknown [id number] 2.840.1.159683.3.579. 2.462 Unknown [id number] 2.840.1.990071.3.579. 2.462 Unknown [id number] 2.840.1.375132.3.579. 2.462 Unknown [id number] 2.840.1.932842.3.579. 2.462 Unknown [id number] 2.840.1.828554.3.579. 2.462 Unknown [id number] 2.840.1.260833.3.579. 2.462 Unknown [id number] 2.840.1.833124.3.579. 2.462 Unknown [id number] 2.840.1.742113.3.579. 2.462 Unknown [id number] 2.840.1.082126.3.579. 2.462 Unknown [id number] 2.840.1.311282.3.579. 2.462 Unknown [id number] 2.840.1.315142.3.579. 2.462 Unknown [id number] 2.840.1.578533.3.579. 2.462 Unknown [id number] 2.840.1.160618.3.579. 2.462 Unknown [id number] 2.16.840.1.266464.3.579. 2.462 Unknown [id number] 2.16.840.1.154905.3.579. 2.462 Unknown [id number] 2.16.840.1.045787.3.579. 2.462 Unknown [id number] 2.16.840.1.423413.3.579. 2.462 Unknown [id number] 2.16.840.1.298716.3.579. 2.462 Unknown [id number] 2.16.840.1.279103.3.579. 2.462 Social History Date Type Detail Facility Start: 02-08-2020 Tobacco smoking stat [facility] Current some day smoker [place] Start: 02-08-2020 End: 04-20-2024 Alcohol intake Current drinker of alcohol (finding) [place] Start: 02-08-2020 End: 05-22-2024 Alcohol Comment occ [place], [place] Start: 1940 Sex Assigned At Not on file [place] Start: 05-04-2022 End: 03-08-2023 Exposure to SARS-CoV-2 (event) Not sure [place] Start: 03-06-2020 End: 04-25-2024 Tobacco smoking status NHIS Former smoker [place] Start: 03-06-2020 End: 04-25-2024 Tobacco use and exposure Never used [place] Tobacco smoking stat [facility] Tobacco smoking consumption unknown [facility] Start: 05-17-2022 End: 04-04-2024 Tobacco smoking status FLIS Smokes tobacco daily [facility] History of tobacco use Cigarette Smoker [facility] Start: 05-17-2022 End: 08-11-2024 Cigarettes smoked current (pack per day) - Reported 0.5 [facility] Start: 05-18-2022 History SDOH Financial 5 [facility] Start: 05-18-2022 History SDOH Food Worry 1 [facility] Start: 05-18-2022 History SDOH Transpo rt Med 2 [facility] Start: 07-05-2022 End: 03-15-2025 Alcohol intake Ex-drinker (finding) [facility] History of tobacco use Current smoker [facility] Start: 07-27-2023 End: 08-11-2024 Gender identity Not on file [facility] How often do you nee d to have someone help you when you read instructions, pamphlets, or other written material from your doctor or pharmacy [SILS] Never [facility] Has the [employer], [employer], or [employer] threatened to shut off services in your home in past 12Mo No [facility] Are you now , , , , never or living with a partner? [facility] How often to you hav e a drink containing alcohol? Monthly or less [facility] How often do you hav e 6 or more drinks on 1 occasion? Never [facility] How hard is it for y ou to pay for the very basics like food, housing, medical care, and heating Not very hard [facility] Do you feel stress - tense, restless, nervous, or anxious, or unable to sleep at night because your mind is troubled all the time - these days [OSQ] Not at all [facility] (I/We) worried wheth er (my/our) food would run out before (I/we) got money to buy more. Never true [facility] Start: 02-15-2022 End: 10-25-2024 Sex Female (finding) [facility] Start: 1940 Sex assigned at Female S [facility] Start: 08-03-2024 Gender identity Identifies as female gender (finding) [facility] Start: 08-03-2024 Sexual orientation Heterosexual (fin ding) [facility] NEGATED: Highlighted rowStart: NINF History of tobacco use Passive smoker [facility] Medical Equipment Procedure Code Equipment Code Equipment Origin al Text Equipment Identifier Dates Gas [employer] Intraocular Vision System [id number] - [id number] Start: 07-27-2024 Stent Vasc 6x40x 125 6f [employer] - Sna - [id number] Start: 11-22-2024 Stent Oliva 5x40x1 25 6f [employer] - Sna - [id number] Start: 11-22-2024 Functional Status Date Assessment Result Facility 07-18-2024 Are you deaf, or do you have serious difficulty hearing No 07/18/2024 12:17 PM Jaci Umana RN No [facility] 07-18-2024 Are you blind, or do you have serious difficulty seeing, even when wearing glasses Yes 07/18/2024 12:17 PM Jaci Umana, RADHA Yes [facility] 07-18-2024 Do you have serious difficulty walking or climbing stairs Yes 07/18/2024 12:17 PM Jaci Umana RN Yes [facility] 07-18-2024 Do you have difficul ty dressing or bathing Yes 07/18/2024 12:17 PM Jaci Umana RN Yes [facility] 07-18-2024 Because of a physica l, mental, or emotional condition, do you have difficulty doing errands alone such as visiting a physician's office or shopping Yes 07/18/2024 12:17 PM Jaci Umana RN Yes [facility] Mental Status Date Assessment Result Facility 07-18-2024 Because of a physica l, mental, or emotional condition, do you have serious difficulty concentrating, remembering, or making decisions No 07/18/2024 12:17 PM Jaci Umana RN No [facility] Clinical Notes 05-14-2022 to 03-15-2025 Andre Berry MD - 03/15/2025 11:15 AM Savana Triana MD - 01/02/2025 9:45 AM Cindy Blankenship MD - 12/24/2024 2:30 PM Cindy Blankenship MD - 12/05/2024 10:00 AM EDTDischarge Instructions Note Date & Type Note Facility 03-15-2025 History of Present illness Narrative Images from the original note were not included. Andre Patel MD [facility] Hematology/Oncology - [facility] [address] [facility] [address] [facility] [address] Dept: [phone] Dept PROBLEM LIST: 1. Recurrent DVT: Initially [...] completing clinical documentation as well as with [id number] patient care, performing a medically appropriate examination, counseling / educating the patient/family/caregiver, and ordering medications, tests, or procedures. HPI: Mel Pop is a 84 y.o. female who presents here today with VTE Pt w/ history of severe atherosclerosis, COPD, former smoker, diverticulosis, afib, hypertension, and GERD who presented to [facility] for right lower extremity [...] trifurcation vessels. Vascular surgery recommended transfer to [facility]. PVR and BLE US results pending [...] to Coumadin. Here today w/ Lavelle (social science teacher from [employer]) as well as Fidel STAPLETON Pt reports [...] Resource Strain: Low Risk (06/20/2024) Received from [facility] Overall Financial Resource Strain (CARDIA) [...] min Stress: Patient Unable To Answer (08/03/2024) [employer] - Occupational Stress Questionnaire Feeling of Stress : Patient unable to answer Social Connections: Unknown (08/03/2024) Social Connection and Isolation Panel [NHANES] Frequency of Communication with Friends and Family: Patient unable to answer Frequency of Social Gatherings with Friends and Family: Patient unable to answer Attends Scientologist Services: Patient unable to answer Active Member of Clubs or Organizations: Patient unable to answer Attends Club or Organization Meetings: Never Marital Status: Patient unable to answer Recent Concern: Social Connections - Moderately Isolated (06/20/2024) Received from [facility] Social Connection and Isolation Panel [NHANES] Frequency of Communication with Friends and Family: More than three times a week Frequency of Social Gatherings with Friends and Family: Once a week Attends [employer] Services: More than 4 times per year [...] recognition and may contain minor errors in insurance sales professional. [1] Past Medical History: Diagnosis Date Arrhythmia PAF Asthma Chronic kidney disease COPD (chronic obstructive pulmonary disease) ([facility]) DVT (deep venous thrombosis) ([facility]) Essential hypertension 03/07/2020 GERD (gastroesophageal reflux disease) Hiatal hernia IBS (irritable bowel syndrome) Pure hypercholesterolemia 03/07/2020 PVD (peripheral vascular disease) ([facility]) Stroke ([facility]) [2] Past Surgical History: Procedure Laterality Date ANKLE SURGERY ARM SURGERY (HISTORICAL) Right COLONOSCOPY ESOPHAGEAL DILATION EYE SURGERY Right 07/05/2024 [facility] EYE SURGERY Right 06/2024 x2, [facility] FINGER AMPUTATION Right 03/07/2020 right index [...] Percocet [Oxycodone-Acetaminophen] Itching documented in this encounter [facility] 01-02-2025 History of Present illness Narrative [...] 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 documented in this encounter [facility] 01-02-2025 Note HNO ID: [id number] Author: SAVANA LOPEZ MD Service: ? 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 [facility] 12-24-2024 History of Present illness Narrative 12/24/2024 Mel Pop 1940 Chief Complaint Patient presents with Follow-up Discuss Arterial Duplex Right 12/13/24; 2nd follow up RLE angio, SFA/pop/tib angioplasty/stenting 11/22/24 ([facility] [phone]) Patient returns for post operative evaluation s/p [...] femoral angiography (Krzysztof) documented in this encounter [facility] [employer] 12-05-2024 History of Present illness Narrative 12/05/2024 [...] MICHELLE PAD (peripheral artery disease) ([facility]) Relevant Orders Vascular US lower extremity arterial [...] I reviewed the images with the patient's kvnbansi-xw-gmc who was present for today's visit as the patient is blind. Follow up after arterial duplex to discuss the results. 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 Groin site remains intact and LE distal pulses unchanged via assessment with doppler. Transportation called for picker machine operator [facility] 11-22-2024 Miscellaneous Notes POA called to [...] the patient as well as the patient's nujjgopx-ss-gmv Fidel. They have elected to proceed. PROCEDURE [...] technique was used to place a 5 Senegalese sheath. The Bentson wire was positioned in [...] catheter and the catheter removed. The 5 Senegalese sheath was exchanged for a long 6 Senegalese Ansell sheath which was positioned with its [...] of this, a 5 x 40 mm [employer] Zilver self-expanding stent was placed across the [...] sheath was exchanged for a short 6 [place]egalese sheath. A Vascade closure device was deployed [...] MD Vascular Surgery documented in this encounter [facility] 11-22-2024 Procedure note POA given updated via phone call. Made aware of patient's orders to lay flat until 1325. Daughter in law stated that she will call care facility later to make arrangements for transportation back. [facility] 11-22-2024 Hospital Discharge instructions Mehreen Khanna [...] the office l documented in this encounter [facility] 11-22-2024 Nurse Note Patient arrived on unit. Name and date verified. Attached to monitors. Vital signs stable. [facility] Procedure note OPERATIVE REPORT DATE [...] the patient as well as the patient's zhrrnnbc-ja-wcr Fidel. They have elected to proceed. PROCEDURE [...] technique was used to place a 5 Senegalese sheath. The Bentson wire was positioned in [...] catheter and the catheter removed. The 5 [place]eg[place]e sheath was exchanged for a long 6 Senegalese Ansell sheath which was positioned with its [...] sheath was exchanged for a short 6 Senegalese sheath. A Vascade closure device was deployed [...] preoperative examination. Kristyn Blankenship MD Vascular Surgery [facility] 11-22-2024 Attending History and physical note H&P [...] with a walker with pT at her [facility]p facility. She is on Eliquis and statin. She is a former smoker. PastMedical History: Past Medical History: Diagnosis Date Arrhythmia PAF Asthma Chronic kidney disease COPD (chronic obstructive pulmonary disease) ([facility]) DVT (deep venous thrombosis) ([facility]) Essential hypertension 03/07/2020 GERD (gastroesophageal reflux disease) Hiatal hernia IBS (irritable bowel syndrome) Pure hypercholesterolemia 03/07/2020 PVD (peripheral vascular disease) ([facility]) Stroke ([facility]) Past Surgical History: Past Surgical History: Procedure [...] mg) by mouth daily. 08/12/24 08/12/25 Kael Haywadr DO apixaban (Eliquis) 5 MG tablet Take [...] min Stress: Patient Unable To Answer (08/03/2024) [employer] - Occupational Stress Questionnaire Feeling of Stress : Patient unable to answer Social Connections: Unknown (08/03/2024) Social Connection and Isolation Panel [NHANES] Frequency of Communication with Friends and Family: Patient unable to answer Frequency of Social Gatherings with Friends and Family: Patient unable to answer Attends Scientologist Services: Patient unable to answer Active Member of Clubs or Organizations: Patient unable to answer Attends Club or Organization Meetings: Never Marital Status: Patient unable to answer Recent Concern: Social Connections - Moderately Isolated (06/20/2024) Received from [facility] Social Connection and Isolation Panel [NHANES] Frequency of Communication with Friends and Family: More than three times a week Frequency of Social Gatherings with Friends and Family: Once a week Attends Scientologist Services: More than 4 times per year [...] like me to discuss this with her mxtfatwq-kn-rwv Fidel Castillo. She states she is her POA. I have contacted Fidel via telephone and explained the above and the recommendations for angiography. She will speak with the patient and call the office to let us know how they would like to proceed. Kristyn Blankenship MD Vascular Surgery [employer] Phone: 11-22-2024 Note [facility] [facility] 11-22-2024 History and physical note [...] with a walker with pT at her usp facility. She is on Eliquis and statin. She is a former smoker. PastMedical History: Past Medical History: Diagnosis Date Arrhythmia PAF Asthma Chronic kidney disease COPD (chronic obstructive pulmonary disease) ([facility]) DVT (deep venous thrombosis) ([facility]) Essential hypertension 03/07/2020 GERD (gastroesophageal reflux disease) Hiatal hernia IBS (irritable bowel syndrome) Pure hypercholesterolemia 03/07/2020 PVD (peripheral vascular disease) ([facility]) Stroke ([facility]) Past Surgical History: Past Surgical History: Procedure Laterality Date ANKLE SURGERY ARM SURGERY (HISTORICAL) Right COLONOSCOPY ESOPHAGEAL DILATION EYE SURGERY Right 07/05/2024 A[facility] EYE SURGERY Right 06/2024 x2, [facility] FINGER AMPUTATION Right 03/07/2020 right index [...] (80 mg) by mouth daily. 08/09/24 09/22/24 Kale Hayward, lisinopril 40 MG tablet Take 40 [...] min Stress: Patient Unable To Answer (08/03/2024) [employer] - Occupational Stress Questionnaire Feeling of Stress : Patient unable to answer Social Connections: Unknown (08/03/2024) Social Connection and Isolation Panel [NHANES] Frequency of Communication with Friends and Family: Patient unable to answer Frequency of Social Gatherings with Friends and Family: Patient unable to answer Attends Scientologist Services: Patient unable to answer Active Member of Clubs or Organizations: Patient unable to answer Attends Club or Organization Meetings: Never Marital Status: Patient unable to answer Recent Concern: Social Connections - Moderately Isolated (06/20/2024) Received from [facility] Social Connection and Isolation Panel [NHANES] Frequency of Communication with Friends and Family: More than three times a week Frequency of Social Gatherings with Friends and Family: Once a week Attends Scientologist Services: More than 4 times per year [...] like me to discuss this with her loywhszn-ju-tic Fidel Castillo. She states she is her POA. I have contacted Fidel via telephone and explained the above and the recommendations for angiography. She will speak with the patient and call the office to let us know how they would like to proceed. Kristyn Blankenship MD Vascular Surgery documented in this encounter [facility] 11-09-2024 Note Tried to reach patie nt to discuss disaster recovery specialist her procedure. Mailbox full & unable to leave voicemail. [facility] 11-05-2024 History of Present illness Narrative [...] with a walker with pT at her usp facility. She is on Eliquis and statin. She is a former smoker. PastMedical History: Past Medical History: Diagnosis Date Arrhythmia PAF Asthma Chronic kidney disease COPD (chronic obstructive pulmonary disease) ([facility]) DVT (deep venous thrombosis) ([facility]) Essential hypertension 03/07/2020 GERD (gastroesophageal reflux disease) Hiatal hernia IBS (irritable bowel syndrome) Pure hypercholesterolemia 03/07/2020 PVD (peripheral vascular disease) ([facility]) Stroke ([facility]) Past Surgical History: Past Surgical History: Procedure Laterality Date ANKLE SURGERY ARM SURGERY (HISTORICAL) Right COLONOSCOPY ESOPHAGEAL DILATION EYE SURGERY Right 07/05/2024 ACH EYE SURGERY Right 06/2024 , [facility] FINGER AMPUTATION Right 03/07/2020 right index [...] Resource Strain: Low Risk (06/20/2024) Received from [facility] Overall Financial Resource Strain (CARDIA) [...] min Stress: Patient Unable To Answer (08/03/2024) [place] [employer] - Occupational Stress Questionnaire Feeling of Stress : Patient unable to answer Social Connections: Unknown (08/03/2024) Social Connection and Isolation Panel [NHANES] Frequency of Communication with Friends and Family: Patient unable to answer Frequency of Social Gatherings with Friends and Family: Patient unable to answer Attends Scientologist Services: Patient unable to answer Active Member of Clubs or Organizations: Patient unable to answer Attends Club or Organization Meetings: Never Marital Status: Patient unable to answer Recent Concern: Social Connections - Moderately Isolated (06/20/2024) Received from [facility] Social Connection and Isolation Panel [NHANES] Frequency of Communication with Friends and Family: More than three times a week Frequency of Social Gatherings with Friends and Family: Once a week Attends Scientologist Services: More than 4 times per year [...] like me to discuss this with her utfjpcim-qh-rfu Fidel Castillo. She states she is her POA. I have contacted Fidel via telephone and explained the above and the recommendations for angiography. She will speak with the patient and call the office to let us know how they would like to proceed. Kristyn Blankenship MD Vascular Surgery documented in this encounter [facility] 11-05-2024 Note [facility]24 Note Date of Procedure 10/01/2024. [employer] CATALINA Donovan CDOS 10/01/2024 10:58 AM [...] drops right eye documented in this encounter [facility] 10-01-2024 Note HNO ID: [id number] Author: SAVANA LOPEZ MD Service: ? Author [...] agree with al (more content not included)... [facility] 10-01-2024 History of Present illness [...] to HTN (SBP 199/99 at presentation to [place]) and anticoagulation that led to angle closure [...] its relevant components. 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 documented in this encounter [facility] 09-05-2024 Note HNO ID: [id number] Author: SAVANA LOPEZ MD Service: ? 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 [facility] 08-22-2024 History of Present illness Narrative [facility] Vascular [facility] Vascular Surgery Follow-up Office Visit CHIEF COMPLAINT: Chief Complaint Patient presents with Follow-up 3 month follow up, PAD check ([facility] HISTORY OF PRESENT ILLNESS: Mel [...] is ambulating with walker with PT at [facility] without difficulty. She denies any rest pain at night or any nonhealing wounds. Currently taking the following medications for vascular risk factor modification: Antiplatelet/Anticoagulant: Eliquis Statin: atorvastatin Smoking Status: not currently smoking Past Medical History: Past Medical History: Diagnosis Date Arrhythmia PAF Asthma Chronic kidney disease COPD (chronic obstructive pulmonary disease) ([facility]) DVT (deep venous thrombosis) ([facility]) Essential hypertension 03/07/2020 GERD (gastroesophageal reflux disease) Hiatal hernia IBS (irritable bowel syndrome) Pure hypercholesterolemia 03/07/2020 PVD (peripheral vascular disease) ([facility]) Stroke ([facility]) Past Surgical History: Past Surgical History: Procedure Laterality Date ANKLE SURGERY ARM SURGERY (HISTORICAL) Right COLONOSCOPY ESOPHAGEAL DILATION EYE SURGERY Right 07/05/2024 ACH EYE SURGERY Right 06/2024 x2, [facility] FINGER AMPUTATION Right 03/07/2020 right index [...] Resource Strain: Low Risk (06/20/2024) Received from [facility] Overall Financial Resource Strain (CARDIA) [...] min Stress: Patient Unable To Answer (08/03/2024) [employer] - Occupational Stress Questionnaire Feeling of Stress : Patient unable to answer Social Connections: Unknown (08/03/2024) Social Connection and Isolation Panel [NHANES] Frequency of Communication with Friends and Family: Patient unable to answer Frequency of Social Gatherings with Friends and Family: Patient unable to answer Attends Scientologist Services: Patient unable to answer Active Member of Clubs or Organizations: Patient unable to answer Attends Club or Organization Meetings: Never Marital Status: Patient unable to answer Recent Concern: Social Connections - Moderately Isolated (06/20/2024) Received from [facility] Social Connection and Isolation Panel [NHANES] Frequency of Communication with Friends and Family: More than three times a week Frequency of Social Gatherings with Friends and Family: Once a week Attends Scientologist Services: More than 4 times per year [...] Follow-Up: prn . documented in this encounter [facility] 08-16-2024 Note [facility] 08-16-2024 Nurse Note Patient picked up for transfer to [facility] by stretcher. Report already called to GENET Garcia. [facility] 08-16-2024 Nurse Note Patient picked up for transfer to [facility] by stretcher. Report already called to GENET Garcia. Telephone report called to GENET Garcia at [facility]. Bedside swallow completed. Pt passed and tolerated well tolerated well. documented in this encounter [facility] 08-16-2024 Nurse Note Telephone report called to GENET Garcia at [facility]. [facility] 08-16-2024 Note Formatting of this n ote might be different from the original. Arranged transport to [facility] via [employer] with pickup at 2pm. Notified snf of transport time via [employer] message; reviewed time with RN, unit secy and TCC. Called pt's daughter to review discharge time., plan; she is agreeable. [facility] 08-16-2024 Note Formatting of this n ote might be different from the original. Arranged transport to [facility] via [employer] with pickup at 2pm. Notified snf of transport time via [employer] message; reviewed time with RN, unit secy and TCC. Called pt's daughter to review discharge time., plan; she is agreeable. [facility] 08-16-2024 Miscellaneous Notes Arranged transport to [facility] via [employer] with pickup at 2pm. Notified snf of transport time via [employer] message; reviewed time with RN, unit secy and TCC. Called pt's daughter to review discharge time., plan; she is agreeable. Patient Choice Patient Name: MEL POP Date of : 1940 All Providers Sent Referral Name: [facility] Phone: [phone] Address: [address] [place], [place] [address] [address] Name: [facility] Phone: [phone] Address: [address] [place] [address] Name: [facility] Phone: [phone] Address: [place] [address] MAR & Discharge med list transmitted to [facility] - [facility] via [employer] per TCC request. Pt has auth to go to [facility]. Dttiffanie Stokes,[phone] was called, message left @DC. Care Team was messaged...place DC orders/MAR. Dar YOUNG, RN complete HECTOR. DENTAL RECEPTIONIST will arrange transport for this am. [employer] PRODUCT MANAGER tasked to sebd DC orders/MAR. Problem: Knowledge [...] met Outcome: Progressing [facility] Ref[id number] to be DC'd to [facility]. Dtr Fidel Updated. CM to [...] Progressing Pt has Been accepted to [facility]. Need PT/OT to see so auth to be started. Therapy to see today was sent. Called and spoke with Dtbraxton Verdin. [facility] tasked w update. CM to follow. Problem: [...] Outcome: Progressing Referral placed to SNF[facility] Await review and response regarding ability to accept. TCC notified. Electronically signed by Christine Morataya [facility], 08-13-2024 at 3:00 PM Called dgt to talk about dc planning. Dgt continues to tour SNFs this evening, since she was sick this weekend. Provided me with two more SNF choices. [facility]. Tasked [facility] to create these referrals. CM to [...] [facility], updates sent via [employer]oo. Problem: Knowledge Deficit Goal: Patient/family/caregiver demonstrates understanding [...] Nutritional Intake Outcome: Progressing Referral placed to [facility] via [facility] per TCC request. Await review and response regarding ability to accept. TCC notified. Electronically signed by Christine Morataya [facility], 08-10-2024 at 9:23AM Pt was to be DC to [facility]. Found out pt and dtr didn't want to return to [facility]. SNF was made aware. On adm spoke with Dtr Fidel, ok to return. Called Dtr this am, after speaking with pt and things that happened and didn't happen. Fidel requesting a referral to be made to [facility]. [facility] tasked to send. A SNF list was emailed to Fidel. [email or web address]. She will tour facilities over weekend. CM [...] active dc orders. Transportation arranged through [facility] with estimated picker machine operator time of 1929. left with daughter Fidel along with 3N phone number to call with questions. Bedside RN aware. Facility updated. [facility] coal handling supervisor sent orders to [facility]. manager editorial was asked to assist with setting up transport back to [facility] this evening. transportation escort had already done so, but this post office manager called daughter to inform her of discharge and transport set up. Daughter did not wish patient to return to the SNF. Stream Control Officer told her that patient is medically stable for dc and that she should continue the discussion with the social science teacher and service administrator at The snf, and also get options from [employer]. Coordinator was to message the snf about return this evening via [employer]. Updated PT/OT notes placed to SNF [facility] via [employer] per TCC request. Await review and response regarding ability to accept. TCC notified. Electronically signed by [facility] Aracelis Gardiner Patient is medically ready for dc. PT/OT both continuing to recommend SNF. 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 Plan to dc back to [facility] pending auth I was off Yesterday, PT note was in from Tuesday. Therapy to see today was sent out to OT Tuesday to see yesterday. Pt was not seen. I did sent a therapy to see today to PT/OT so an auth can be started. Pt will Be Dc'd to [facility]. CM to follow. Problem: Knowledge [...] aspiration 2/2 vomiting. Discharge Plan: Return to [facility]. Therapy eval needed for precert. [...] Plan is for pt to return to [facility]. Auth and HECTOR needed prior to DC. CM to follow. Per attending pt ready for DC. Pt will return to [facility]. Pt needs PT/OT to start [...] RN Outcome: Progressing Return referral placed to [facility] via [facility] per TCC request. Await review and response regarding ability to accept. TCC notified. Pt to ED w N/V/Diarrhea, was Dx w Aspiration pneumonitis. Started on IV ATB's. Called pt's Dtr, Fidel, . Pt is from [facility]. Plan on returning. [facility] tasked to send a return referral. [...] Improved Outcome: Progressing documented in this encounter [facility] 08-16-2024 Note Formatting of this n ote might be different from the original. Patient Choice Patient Name: MEL POP Date of : 1940 All Providers Sent Referral Name: [facility] Phone: [phone] Address: [address] [place] [address] Name: [facility] Phone: [phone] Address: [address] [place] [address] Name: [facility] Phone: [phone] Address: [address] [place] [address] [id number] [facility] 08-16-2024 Note Formatting of this n ote might be different from the original. Patient Choice Patient Name: MEL POP Date of : 1940 All Providers Sent Referral Name: [facility] Phone: [phone] Address: [address] [place] [address] Name: [facility] Phone: [phone] Address: [address] [place] [address] Name: [facility] Phone: [phone] Address: [address] [place] [address] [id number] [facility] 08-16-2024 Note Formatting of this n ote might be different from the original. MAR & Discharge med list transmitted to [facility] via [facility] per TCC request. [facility] 08-16-2024 Note Formatting of this n ote might be different from the original. MAR & Discharge med list transmitted to [facility] via [facility] per TCC request. [facility] 08-16-2024 Note Formatting of this n ote might be different from the original. Pt has auth to go to [facility]. Dtr Fidel,[phone] was called, message left @DC. Care Team was messaged...place DC orders/MAR. Dar YOUNG RN complete HECTOR. DENTAL RECEPTIONIST will arrange transport for this am. [facility] tasked to sebd DC orders/MAR. [facility] 08-16-2024 Note Formatting of this n ote might be different from the original. Pt has auth to go to [facility]. Dtr Fidel,[phone] was called, message left @DC. Care Team was messaged...place DC orders/MAR. Dar YOUNG, RN complete HECTOR. DENTAL RECEPTIONIST will arrange transport for this am. [employer] PRODUCT MANAGER tasked to sebd DC orders/MAR. [facility] 08-16-2024 History of Present illness Narrative Hospitalist Progress Note 08/16/2024 Subjective: Admit Date: 08/03/2024 PCP: Jared Evans MD Room#: [id number] A BRIEF HOSPITAL COURSE: Mel is a 83 y.o. female with past medical history below who presents with chief complaint listed above.Patient is an 83 y/o female who presented to [place] [facility] early this AM from local [place] for vomiting and diarrhea. Patient reported she [...] (HCC) DVT (deep venous thrombosis) ([facility]) Essential hypertension 03/07/2020 GERD (gastroesophageal reflux disease) Hiatal hernia IBS (irritable bowel syndrome) Pure hypercholesterolemia 03/07/2020 PVD (peripheral vascular disease) ([facility]) Stroke ([facility]) LABS: CBC: No results for input(s): WBC, [...] Devika Escobar MD Division of Hospitalist Medicine [facility] Hospitalist Progress Note 08/15/2024 Subjective: Admit Date: 08/03/2024 PCP: Jared Evans MD Room#: [id number] A BRIEF HOSPITAL COURSE: Mel is a 83 y.o. female with past medical history below who presents with chief complaint listed above.Patient is an 83 y/o female who presented to [place] [facility] early this AM from local [place] for vomiting and diarrhea. Patient reported she [...] (HCC) DVT (deep venous thrombosis) ([facility]) Essential hypertension 03/07/2020 GERD (gastroesophageal reflux disease) Hiatal hernia IBS (irritable bowel syndrome) Pure hypercholesterolemia 03/07/2020 PVD (peripheral vascular disease) ([facility]) Stroke ([facility]) LABS: CBC: No results for input(s): WBC, [...] Devika Escobar MD Division of Hospitalist Medicine [facility] Images from the original note were not included. PHYSICAL THERAPY [facility] Treatment Note Name/MRN: Mel Pop ([id number]) Date of : 1940 Age: 83 y.o. [facility] Discharge Recommendation: 24 hour supervision or assist, Care Home Facility Equipment Needed: (pt uses FWW JEWEL SUPERVISOR) Prior Level of Function Prior Level of [...] home health PT, and home health care provider if discharging home due to complete [...] Goal: keep getting up, get back to [place]. Encounter Problems Encounter Problems (Active) Balance Patient [...] Treatment Minutes: 19 Minutes (Gait) Oanh Grimes JEWEL SUPERVISOR Cosigned by Samantha Lora, PT at 08/14/2024 3:14 PM EST Images from the original note were not included. OCCUPATIONAL THERAPY [facility] Treatment Note Name/MRN: Mel Pop ([id number]) Date of : 1940 Age: 83 y.o. [facility] A Discharge Recommendation: Care Home Facility Prior Level of Function Prior [...] home health OT and home health care provider. Pt. ( Who is totally BLIND), Would due better receiving therapy in her home due to familiar environment. If she can not get 24/7 assist at home then OT [place] Subjective Pt. Remains in her recliner eating [...] Date: 08/03/2024 PCP: Jared Evans MD Room#: [id number] A BRIEF HOSPITAL COURSE: Mel is a 83 y.o. female with past medical history below who presents with chief complaint listed above.Patient is an 83 y/o female who presented to [facility] early this AM from local [place] for vomiting and diarrhea. Patient reported she [...] (HCC) DVT (deep venous thrombosis) ([facility]) Essential hypertension 03/07/2020 GERD (gastroesophageal reflux disease) Hiatal hernia IBS (irritable bowel syndrome) Pure hypercholesterolemia 03/07/2020 PVD (peripheral vascular disease) ([facility]) Stroke ([facility]) LABS: CBC: No results for input(s): WBC, [...] Devika Escobar MD Division of Hospitalist Medicine [facility] Hospitalist Progress Note 08/13/2024 Subjective: Admit Date: 08/03/2024 PCP: Jared Evans MD Room#: [id number]/[id number] A BRIEF HOSPITAL COURSE: Mel is a 83 y.o. female with past medical history below who presents with chief complaint listed above.Patient is an 83 y/o female who presented to [place] [facility] early this AM [place] local [place] for [place] diarrhea. Patient reported she [...] 03/07/2020 PVD (peripheral vascular disease) ([facility]) Stroke (HCC) LABS: CBC: No results for [...] Kael Hayward DO Division of Hospitalist Medicine [facility] Nutrition Assessment Type and Reason for [...] No significant fluid accumulation (per flow sheets) Ios Developer Strength: Not Performed Nutrition Assessment: 83 y.o. [...] On: Kcal/kg Weight Used for Energy Requirements: Paia Weight for Energy Calculation (kg): 54 kg Total Energy Requirements (kcals/day): 7962-6392 Weight Used for Protein Requirements: Paia Weight in Kg Used for Protein Requirements: [...] 160# 07/05) % Weight Change (Calculated): 12.2 Paia Body Weight (lbs) (Calculated): 119 lbs Paia Body Weight (Kg) (Calculated): 54 kg BMI [...] soon to determine Janki Fields RD Contact: *[phone] Hospitalist Progress Note 08/12/2024 Subjective: Admit Date: 08/03/2024 PCP: Jared Evans MD Room#: [id number] A BRIEF HOSPITAL COURSE: Mel is a 83 y.o. female with past medical history below who presents with chief complaint listed above.Patient is an 83 y/o female who presented to [place] [facility] early this AM [place] local [place] for vomiting and diarrhea. Patient reported she [...] Kael Hayward DO Division of Hospitalist Medicine [facility] Hospitalist Progress Note 08/11/2024 Subjective: Admit Date: 08/03/2024 PCP: Jared Evans MD Room#: [id number] A BRIEF HOSPITAL COURSE: Mel is a 83 y.o. female with past medical history below who presents with chief complaint listed above.Patient is an 83 y/o female who presented to [place] [facility] early this AM [place] local [place] for [place] and diarrhea. Patient reported she [...] 03/07/2020 PVD (peripheral vascular disease) ([facility]) Stroke ([facility]) LABS: CBC: No results for input(s): WBC, [...] Hayward DO Division of Hospitalist Medicine [facility] Hospitalist Progress Note 08/10/2024 Subjective: Admit Date: 08/03/2024 PCP: Jared Evans MD Room#: [id number] A BRIEF HOSPITAL COURSE: Mel is a 83 y.o. female with past medical history below who presents with chief complaint listed above.Patient is an 83 y/o female who presented to [place] [facility] early this AM [place] local [place] for [place] diarrhea. Patient reported she [...] 03/07/2020 PVD (peripheral vascular disease) ([facility]) Stroke ([facility]) LABS: CBC: No results for input(s): WBC, [...] Kael Hayward DO Division of Hospitalist Medicine [facility] Hospitalist Progress Note 08/09/2024 Subjective: Admit Date: 08/03/2024 PCP: Jared Evans MD Room#: [id number] A BRIEF HOSPITAL COURSE: Mel is a 83 y.o. female with past medical history below who presents with chief complaint listed above.Patient is an 83 y/o female who presented to [place] [facility] early this AM [place] local [place] for [place] diarrhea. Patient reported she [...] (HCC) DVT (deep venous thrombosis) ([facility]) Essential hypertension 03/07/2020 GERD (gastroesophageal reflux disease) Hiatal hernia IBS (irritable bowel syndrome) Pure hypercholesterolemia 03/07/2020 PVD (peripheral vascular disease) ([facility]) Stroke (HCC) LABS: CBC: No results for [...] Kael Hayward DO Division of Hospitalist Medicine [facility] Images from the original note were not included. OCCUPATIONAL THERAPY [facility] Initial Evaluation Name/MRN: Mel Pop ([id number]) Evaluation Date: 08/08/2024 Date of : 1940 Admission Date: 08/03/2024 2:22 AM Age: 83 y.o. Room/Bed: N5[facility]8/N5[facility]8 A Discharge Recommendation: Care Home Facility Assessment IMPRESSION: Pt would benefit [...] 03/07/2020 PVD (peripheral vascular disease) ([facility]) Stroke (HCC) Past Surgical History: Past Surgical History: Procedure Laterality Date ANKLE SURGERY ARM SURGERY (HISTORICAL) Right COLONOSCOPY ESOPHAGEAL DILATION EYE SURGERY 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 HYSTERECTOMY ORTHOPEDIC SURGERY THROMBECTOMY Right 04/06/2024 RLE mechanical thrombectomy (Krzysztof) Admission Diagnosis: Patient Active Problem List Diagnosis Date Noted Aspiration pneumonitis ([facility]/HCC) (HCC) 08/03/2024 Visual disturbance, subjective 07/06/2024 Retinal detachment, right 07/05/2024 Vision loss of right eye 07/05/2024 Acute venous embolism and thrombosis of deep vessels of proximal lower extremity ([facility]) 04/14/2024 Peripheral arterial disease ([facility]) 04/03/2024 Immunodeficiency due to conditions classified elsewhere ([facility]) 07/27/2023 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 ([facility]) 07/27/2023 Bilateral pneumonia 06/16/2022 COVID-19 06/16/2022 Hypothyroidism 06/16/2022 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[facility]) 06/16/2022 Cellulitis 05/18/2022 Nicotine use disorder 05/18/2022 Acute venous embolism and thrombosis of deep vessels of proximal end of right lower extremity ([facility]) 04/19/2024 Atrial fibrillation, unspecified type ([facility]) 04/19/2024 Irritable bowel syndrome with diarrhea 03/07/2020 Microscopic hematuria 03/07/2020 Left retinal detachment 03/07/2020 Hyperglycemia 03/07/2020 Osteopenia of left femoral neck 03/07/2020 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 03/07/2020 Seasonal allergies 03/07/2020 Chronic renal insufficiency, stage III (moderate) ([facility]) 03/07/2020 Major depression, single episode, in complete remission ([facility]) 03/07/2020 Gastroesophageal reflux disease without esophagitis 03/07/2020 Essential hypertension 03/07/2020 Pure hypercholesterolemia 03/07/2020 Overweight 03/07/2020 Psoriasis 03/07/2020 History of cerebrovascular accident 03/07/2020 Atrial fibrillation ([facility]) 03/07/2020 Chronic obstructive pulmonary disease ([facility]) 03/07/2020 Finger osteomyelitis, right ([facility]) 03/06/2020 Medical Precautions: Enhanced Contact Proper PPE [...] Daily Activity Raw Score: 14 ADL Inpatient [facility] G-Code Modifier: CK Plan Pt would [...] Care supervision is transferred to a [facility] Therapy Services Occupational Therapist. Goals and/or treatment plan was established in collaboration with patient/family/other representatives. Shannon Fernandez MS, OTR/L Images from the original note were not included. PHYSICAL THERAPY [facility] Treatment Note Name/MRN: Mel Pop ([id number]) Date of : 1940 Age: 83 y.o. [facility] Discharge Recommendation: Care Home Facility Equipment Needed: (pt uses FWW JEWEL SUPERVISOR) Prior Level of Function Prior Level of [...] Goal: keep getting up, get back to [place]. Encounter Problems Encounter Problems (Active) Balance Patient [...] Date: 08/03/2024 PCP: Jared Evans MD Room#: [id number]/[id number] A BRIEF HOSPITAL COURSE: Mel is a 83 y.o. female with past medical history below who presents with chief complaint listed above.Patient is an 83 y/o female who presented to [place] [facility] early this AM [place] for [place] diarrhea. Patient reported she [...] COPD (chronic obstructive pulmonary disease) ([facility]) DVT (deep venous thrombosis) ([facility]) Essential hypertension 03/07/2020 GERD (gastroesophageal reflux disease) Hiatal hernia IBS (irritable bowel syndrome) Pure hypercholesterolemia 03/07/2020 PVD (peripheral vascular disease) ([facility]) Stroke ([facility]) LABS: CBC: Recent Labs 08/05/24 2343 WBC [...] Kael Hayward DO Division of Hospitalist Medicine [facility] Hospitalist Progress Note 08/07/2024 Subjective: Admit Date: 08/03/2024 PCP: Jared Evans MD Room#: [id number]/[id number] A BRIEF HOSPITAL COURSE: Mel is a 83 y.o. female with past medical history below who presents with chief complaint listed above.Patient is an 83 y/o female who presented to [place] [facility] early this AM [place] for [place] diarrhea. Patient reported she [...] 03/07/2020 PVD (peripheral vascular disease) ([facility]) Stroke ([facility]) LABS: CBC: Recent Labs 08/05/24 0358 08/05/24 [...] Kael Hayward DO Division of Hospitalist Medicine [facility] Hospitalist Progress Note 08/06/2024 Subjective: Admit Date: 08/03/2024 PCP: Jared Evans MD Room#: [id number]/[id number] A BRIEF HOSPITAL COURSE: Mel is a 83 y.o. female with past medical history below who presents with chief complaint listed above.Patient is an 83 y/o female who presented to [place] [facility] early this AM [place] for [place] and diarrhea. Patient reported she [...] COPD (chronic obstructive pulmonary disease) ([facility]) DVT (deep venous thrombosis) ([facility]) Essential hypertension 03/07/2020 GERD (gastroesophageal reflux disease) Hiatal hernia IBS (irritable bowel syndrome) Pure hypercholesterolemia 03/07/2020 PVD (peripheral vascular disease) ([facility]) Stroke ([facility]) LABS: CBC: Recent Labs 08/04/24 0447 08/05/24 [...] Kayden Tatum MD Division of Hospitalist Medicine [facility] Images from the original note were not included. PHYSICAL THERAPY [facility] Initial Evaluation Name/MRN: Mel Pop ([id number]) Evaluation Date: 08/06/2024 Date of : 1940 Admission Date: 08/03/2024 2:22 AM Age: 83 y.o. [facility] Discharge Recommendation: Care Home Facility (pt from SNF at baseline) Equipment Needed: (pt uses FWW JEWEL SUPERVISOR) Assessment IMPRESSION: Pt's Vincent scoring has varied [...] to SNF-level care (pt was receiving PT JEWEL SUPERVISOR) Admitting Diagnosis: aspiration pneumonitis, + Norovirus. S/p [...] COPD (chronic obstructive pulmonary disease) ([facility]) DVT (deep venous thrombosis) ([facility]) Essential hypertension 03/07/2020 GERD (gastroesophageal reflux disease) Hiatal hernia IBS (irritable bowel syndrome) Pure hypercholesterolemia 03/07/2020 PVD (peripheral vascular disease) ([facility]) Stroke ([facility]) Past Surgical History: Past Surgical History: Procedure Laterality Date ANKLE SURGERY ARM SURGERY (HISTORICAL) Right COLONOSCOPY ESOPHAGEAL DILATION EYE SURGERY 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 HYSTERECTOMY ORTHOPEDIC SURGERY THROMBECTOMY Right 04/06/2024 RLE mechanical thrombectomy (Krzysztof) Admission Diagnosis: Patient Active Problem List Diagnosis Date Noted Aspiration pneumonitis (CMS/HCC) ([facility]) 08/03/2024 Visual disturbance, subjective 07/06/2024 Retinal detachment, right 07/05/2024 Vision loss of right eye 07/05/2024 Acute venous embolism and thrombosis of deep vessels of proximal lower extremity ([facility]) 04/14/2024 Peripheral arterial disease ([facility]) 04/03/2024 Immunodeficiency due to conditions classified elsewhere ([facility]) 07/27/2023 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 ([facility]) 07/27/2023 Bilateral pneumonia 06/16/2022 COVID-19 06/16/2022 Hypothyroidism 06/16/2022 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[facility]) 06/16/2022 Cellulitis 05/18/2022 Nicotine use disorder 05/18/2022 Acute venous embolism and thrombosis of deep vessels of proximal end of right lower extremity ([facility]) 04/19/2024 Atrial fibrillation, unspecified type ([facility]) 04/19/2024 Irritable bowel syndrome with diarrhea 03/07/2020 Microscopic hematuria 03/07/2020 Left retinal detachment 03/07/2020 Hyperglycemia 03/07/2020 Osteopenia of left femoral neck 03/07/2020 senior living current use of anticoagulant therapy 03/07/2020 Seasonal allergies 03/07/2020 Chronic renal insufficiency, stage III (moderate) ([facility]) 03/07/2020 Major depression, single episode, in complete remission ([facility]) 03/07/2020 Gastroesophageal reflux disease without esophagitis 03/07/2020 Essential hypertension 03/07/2020 Pure hypercholesterolemia 03/07/2020 Overweight 03/07/2020 Psoriasis 03/07/2020 History of cerebrovascular accident 03/07/2020 Atrial fibrillation ([facility]) 03/07/2020 Chronic obstructive pulmonary disease ([facility]) 03/07/2020 Finger osteomyelitis, right ([facility]) 03/06/2020 Medical Precautions: Enhanced Contact Proper PPE [...] OD Hearing: normal Social/Functional History Resident at [facility] at baseline. Goes to therapy [...] Raw Score (No Stairs) : 15 [facility] Score: Walked 10 steps or more (i.e. [...] Goal: keep getting up, get back to [place]. Encounter Problems Encounter Problems (Active) Balance Patient [...] Care supervision is transferred to a [facility] Therapy Services Physical Therapist. Goals and/or treatment plan was established in collaboration with patient/family/other representatives. Hospitalist Progress Note 08/05/2024 Subjective: Admit Date: 08/03/2024 PCP: Jared Evans MD Room#: N5-170/[id number] A BRIEF HOSPITAL COURSE: Mel is a 83 y.o. female with past medical history below who presents with chief complaint listed above.Patient is an 83 y/o female who presented to [place] [facility] early this AM [place]. Patient reported she [...] COPD (chronic obstructive pulmonary disease) ([facility]) DVT (deep venous thrombosis) ([facility]) Essential hypertension 03/07/2020 GERD (gastroesophageal reflux disease) Hiatal hernia IBS (irritable bowel syndrome) Pure hypercholesterolemia 03/07/2020 PVD (peripheral vascular disease) ([facility]) Stroke ([facility]) LABS: CBC: Recent Labs 08/03/24 0251 08/04/24 [...] Kayden Tatum MD Division of Hospitalist Medicine [facility] Images from the original note were not included. PHYSICAL THERAPY [facility] Name/MRN: Mel Pop ([id number]) Date: 08/05/2024 PT orders received per Vincent activity/mobility score. Patient currently with Vincent activity/mobility score greater than 2. Per therapy services guidelines, will discharge PT orders. Please place regular PT eval/treat orders if deemed appropriate. Padmaja Wilson PT Hospitalist Progress Note 08/04/2024 Subjective: Admit Date: 08/03/2024 PCP: Jared Evans MD Room#: N5-125/[id number] A BRIEF HOSPITAL COURSE: Mel is a 83 y.o. female with past medical history below who presents with chief complaint listed above.Patient is an 83 y/o female who presented to [place] [facility] early this AM [place]. Patient reported she [...] COPD (chronic obstructive pulmonary disease) ([facility]) DVT (deep venous thrombosis) ([facility]) Essential hypertension 03/07/2020 GERD (gastroesophageal reflux disease) Hiatal hernia IBS (irritable bowel syndrome) Pure hypercholesterolemia 03/07/2020 PVD (peripheral vascular disease) ([facility]) Stroke ([facility]) LABS: CBC: Recent Labs 08/03/24 02508/04/24 0447 [...] Kayden Tatum MD Division of Hospitalist Medicine [facility] documented in this encounter [facility] 08-15-2024 Plan of care note Problem: [...] needs are met Outcome: Progressing [facility] 08-15-2024 Note Formatting of this n ote might be different from the original. Authorization is pending with [facility]. Ref# [id number] to be DC'd to [facility]. Dtr Fidel Updated. CM to follow. [facility] 08-15-2024 Note Formatting of this n ote might be different from the original. Authorization is pending with [employer]. Ref# [id number] to be DC'd to [facility]. Dtr Fidel Updated. CM to follow. [facility] 08-15-2024 Note Patient progressing toward all goals. [facility] 08-15-2024 Plan of care note Patient progressing toward all goals. [facility] 08-14-2024 Plan of care note Problem: [...] My discharge needs are met Outcome: Progressing [facility] 08-14-2024 Hospital Discharge instructions Devika Escobar [...] detachment Hyperglycemia Osteopenia of left femoral neck 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 Seasonal allergies [...] assistance Toileting Total assistance Feeding Minimal assistance Reversal Print Inspector Minimal assistance Med Delivery yes Wound [...] Date: 08/03/2024 Discharging to Facility/ Agency Name: [facility] Address: [address] [place] [address] Fax: Dialysis Facility (if applicable) Name: Address: Dialysis Schedule: Phone: Fax: Easement Worker/Comic Illustrator signature: ICIAN SECTION Name: Mel Pop Prognosis: good Condition at Discharge: stable Rehab Potential (if transferring to Rehab): good Recommended Labs or Other Treatments After Discharge: none The individual is being admitted to a nursing facility directly from an [facility] or a unit of a [facility] that is not operated by or licensed by [facility] under section 5119.14 or 5160-3-15.1 5 The individual requires the level of services provided by a nursing facility for the condition for which he or she was treated in the hospital and, Physician Certification: I certify the above information and transfer of Mel Pop is necessary for the continuing treatment of the diagnosis listed and that she requires usp facility for less than 30 days. Update Admission H&P: No change in H&P PHYSICIAN SIGNATURE: documented in this encounter [facility] 08-14-2024 Note Formatting of this n ote might be different from the original. Pt has Been accepted to [facility]. Need PT/OT to see so auth to be started. Therapy to see today was sent. Called and spoke with Dtbraxton Verdin updates. SNF tasked w update. CM to follow. [facility] 08-14-2024 Note Formatting of this n ote might be different from the original. Pt has Been accepted to [facility]. Need PT/OT to see so auth to be started. Therapy to see today was sent. Called and spoke with braxton Cardozo. SNF tasked w update. CM to follow. [facility] 08-13-2024 Plan of care note Problem: [...] My discharge needs are met Outcome: Progressing [facility] 08-13-2024 Note Formatting of this n ote might be different from the original. Referral placed to [facility] via [facility] per TCC request. Await review and response regarding ability to accept. TCC notified. Electronically signed by Christine Morataya [facility], 08-13-2024 at 3:[address] [facility] 08-13-2024 Note Formatting of this n ote might be different from the original. Referral placed to SNF- [facility] via Careport per TCC request. Await review and response regarding ability to accept. TCC notified. Electronically signed by Christine Morataya [facility], 08-13-2024 at 3:[address] [facility] 08-13-2024 Note Referral placed to S - [facility] via Careport per TCC request. Await review and response regarding ability to accept. TCC notified. Electronically signed by Christine Morataya [facility], 08-13-2024 at 3:00 PM [facility] 08-13-2024 Note Formatting of this n ote might be different from the original. Called dgt to talk about dc planning. Dgt continues to tour SNFs this evening, since she was sick this weekend. Provided me with two more SNF choices. [facility]. Tasked [facility] to create these referrals. CM to follow. [facility] 08-13-2024 Note Formatting of this n ote might be different from the original. Called dgt to talk about dc planning. Dgt continues to tour SNFs this evening, since she was sick this weekend. Provided me with two more SNF choices. [facility] Tasked [employer] to create these referrals. CM to follow. [facility] 08-13-2024 Plan of care note Problem: [...] My discharge needs are met Outcome: Progressing [facility] 08-12-2024 Note Problem: Knowledge D eficit Goal: Patient/family/caregiver demonstrates understanding of disease process, treatment plan, medications, and discharge instructions Outcome: Progressing [facility] 08-12-2024 Plan of care note Problem: Knowledge Deficit Goal: Patient/family/caregiver demonstrates understanding of disease process, treatment plan, medications, and discharge instructions Outcome: Progressing [facility] 08-12-2024 Plan of care note Problem: [...] My discharge needs are met Outcome: Progressing [facility] 08-11-2024 Plan of care note Problem: Knowledge [...] My discharge needs are met Outcome: Progressing [facility] 08-11-2024 Note Formatting of this n ote might be different from the original. CM noted DC orders in place, Dgt touring facilities over the weekend. Moira. [facility] pending acceptance, updates sent via careport. [facility] 08-11-2024 Note Formatting of this n ote might be different from the original. CM noted DC orders in place, Dgt touring facilities over the weekend. Moira. [facility] pending acceptance, updates sent via careport. [facility] 08-11-2024 Plan of care note Problem: Knowledge [...] Interventions Goal: Assess Nutritional Intake Outcome: Progressing [facility] 08-10-2024 Note Formatting of this n ote might be different from the original. Referral placed to [facility] via Careport per TCC request. Await review and response regarding ability to accept. TCC notified. Electronically signed by Christine Morataya [facility], 08-10-2024 at 9:23AM [facility] 08-10-2024 Note Formatting of this n ote might be different from the original. Referral placed to [facility] via Careport per TCC request. Await review and response regarding ability to accept. TCC notified. Electronically signed by Christine Morataya CMA, 08-10-2024 at 9:23AM [facility] 08-10-2024 Note Referral placed to [facility] via Careport per TCC request. Await review and response regarding ability to accept. TCC notified. Electronically signed by Christine Morataya [facility], 08-10-2024 at 9:23AM [facility] 08-10-2024 Note Formatting of this n ote might be different from the original. Pt was to be DC to [facility]. Found out pt and dtr didn't want to return to [facility]. SNF was made aware. On adm spoke with Dtr Fidel, ok to return. Called Dtr this am, after speaking with pt and things that happened and didn't happen. Fidel requesting a referral to be made to [facility]. [employer] tasked to send. A SNF list was emailed to [email or web address]. She will tour facilities over weekend. CM to follow. [facility] 08-10-2024 Note Formatting of this n ote might be different from the original. Pt was to be DC to [facility]. Found out pt and dtr didn't want to return to [facility]. SNF was made aware. On adm spoke with Dtr Fidel, ok to return. Called Dtr this am, after speaking with pt and things that happened and didn't happen. Fidel requesting a referral to be made to [facility]. [facility] tasked to send. A SNF list was emailed to [email or web address]. She will tour facilities over weekend. CM to follow. [facility] 08-10-2024 Plan of care note Problem: Knowledge [...] Interventions Goal: Assess Nutritional Intake Outcome: Progressing [facility] 08-09-2024 Note Formatting of this n ote might be different from the original. Discharge summary and med list sent via Careport to [facility] per TCC request. [facility] 08-09-2024 Note Formatting of this n ote might be different from the original. Discharge summary and med list sent via Careport to [facility] 08-09-2024 Note Discharge summary an d med list sent via Careport to [facility] per TCC request. [facility] 08-09-2024 Note Formatting of this n ote might be different from the original. Auth received. Patient with active dc orders. Transportation arranged through [employer] with estimated picker machine operator time of 1930. VM left with daughter Fidel along with 3N phone number to call with questions. Bedside RN aware. Facility updated. [facility] coal handling supervisor sent orders to [facility]. [facility] 08-09-2024 Note Formatting of this n ote might be different from the original. Auth received. Patient with active dc orders. Transportation arranged through [employer] with estimated picker machine operator time of 1930. VM left with milady Stokes along with 3N phone number to call with questions. Bedside RN aware. Facility updated. [facility] coal handling supervisor sent orders to [facility]. [facility] 08-09-2024 Note Formatting of this n ote might be different from the original. manager editorial was asked to assist with setting up transport back to [facility] this evening. transportation escort had already done so, but this post office manager called daughter to inform her of discharge and transport set up. Daughter did not wish patient to return to the SNF. Stream Control Officer told her that patient is medically stable for dc and that she should continue the discussion with the social science teacher and service administrator at The snf, and also get options from [employer]. Coordinator was to message the snf about return this evening via [facility]Port. [facility] 08-09-2024 Note Formatting of this n ote might be different from the original. manager editorial was asked to assist with setting up transport back to [facility] this evening. transportation escort had already done so, but this post office manager called daughter to inform her of discharge and transport set up. Daughter did not wish patient to return to the SNF. Stream Control Officer told her that patient is medically stable for dc and that she should continue the discussion with the social science teacher and service administrator at The snf, and also get options from [employer]. Coordinator was to message the snf about return this evening via [employer]Port. [facility] 08-09-2024 Note [facility] 08-09-2024 Hospital course Narrative Hospitalist [...] an 83 y/o female who presented to [place] early this AM from local [place] for vomiting and diarrhea. Patient reported she [...] Ellipta 100-62.5-25 MCG/ACT aerosol powder Generic drug: [id number]-[id number]-Gngeoz STOP taking these medications enoxaparin 80 MG/0.8ML [...] Complexity: follow up within 7-14 calendar days (50669) [x] Severe Complexity: follow up within 7 calendar days (48382) Follow up Testing, Pending results or Referrals [...] Hayward DO Division of Hospitalist Medicine [facility] [employer] [facility] 08/09/2024, 4:23 PM documented in this encounter [facility] 08-09-2024 Note Formatting of this n ote might be different from the original. Updated PT/OT notes placed to [facility] Ashu Tomlin via Careport per TCC request. Await review and response regarding ability to accept. TCC notified. Electronically signed by [employer] MANAGER Aracelis Gardiner [facility] 08-09-2024 Note Formatting of this n ote might be different from the original. Updated PT/OT notes placed to SNF [facility] via Careport per TCC request. Await review and response regarding ability to accept. TCC notified. Electronically signed by [facility] Aracelis Gardiner [employer] [facility] 08-09-2024 Note Formatting of this n ote might be different from the original. Patient is medically ready for dc. PT/OT both continuing to recommend SNF. 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 Plan to dc back to [facility] pending auth [employer] [facility] 08-09-2024 Note Formatting of this n ote might be different from the original. Patient is medically ready for dc. PT/OT both continuing to recommend SNF. 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 Plan to dc back to [facility] pending auth [employer] [facility] 08-08-2024 Note Formatting of this n ote might be different from the original. I was off Yesterday, PT note was in from Tuesday. Therapy to see today was sent out to OT Tuesday to see yesterday. Pt was not seen. I did sent a therapy to see today to PT/OT so an auth can be started. Pt will Be Dc'd to [facility]. CM to follow. [facility] 08-08-2024 Note Formatting of this n ote might be different from the original. I was off Yesterday, PT note was in from Tuesday. Therapy to see today was sent out to OT Tuesday to see yesterday. Pt was not seen. I did sent a therapy to see today to PT/OT so an auth can be started. Pt will Be Dc'd to [facility]. CM to follow. [facility] 08-07-2024 Plan of care note Problem: Knowledge Deficit Goal: Patient/family/caregiver demonstrates understanding of disease process, treatment plan, medications, and discharge instructions Outcome: Progressing Problem: Potential for Compromised Skin Integrity Goal: Skin Integrity is Maintained or Improved Outcome: Progressing Goal: Nutritional status is improving Outcome: Progressing [facility] 08-07-2024 Plan of care note Problem: Knowledge [...] Interventions Goal: Assess Nutritional Intake Outcome: Progressing [facility] 08-07-2024 Note Formatting of this n ote might be different from the original. Case Management Progress Note: Patient remains on 5N for concern with aspiration 2/2 vomiting. Discharge Plan: Return to [facility]. Therapy eval needed for precert. TCC to assist and follow as needed. [facility] 08-07-2024 Note Formatting of this n ote might be different from the original. Case Management Progress Note: Patient remains on 5N for concern with aspiration 2/2 vomiting. Discharge Plan: Return to [facility]. Therapy eval needed for precert. TCC to assist and follow as needed. [facility] 08-07-2024 Plan of care note Problem: Knowledge [...] Interventions Goal: Assess Nutritional Intake Outcome: Progressing [facility] 08-06-2024 Plan of care note Problem: Knowledge [...] Interventions Goal: Assess Nutritional Intake Outcome: Progressing [facility] 08-06-2024 Note Formatting of this n ote might be different from the original. Pt cont's on IV AtBs'. Plan is for pt to return to [facility]. Auth and HECTOR needed prior to DC. CM to follow. [facility] 08-06-2024 Note Formatting of this n ote might be different from the original. Pt cont's on IV AtBs'. Plan is for pt to return to [facility]. Auth and HECTOR needed prior to DC. CM to follow. [facility] 08-06-2024 Note Formatting of this n ote might be different from the original. Per attending pt ready for DC. Pt will return to [facility]. Pt needs PT/OT to start auth Therapy to see put in for alistair so auth can be started. HECTOR will need completed. CM to follow. [facility] 08-06-2024 Note Formatting of this n ote might be different from the original. Per attending pt ready for DC. Pt will return to [facility]. Pt needs PT/OT to start auth Therapy to see put in for alistair so auth can be started. HECTOR will need completed. CM to follow. [facility] 08-06-2024 Consult note Associated Order (s): IP [...] assess Fluid Accumulation: No significant fluid accumulation Ios Developer Strength: Not Performed Nutrition Assessment: Pt hx HTN, stroke, COPD, CKD, IBS. Admitted w/ vomiting and diarrhea. +norovirus. Started on abx for concern of aspiration pna. Pt's symptoms have improved during admission. Consuming and tolerating CLD. Medically stable for discharge back to SNF per notes. Estimated Daily Nutrient Needs: Energy Requirements Based On: Kcal/kg Weight Used for Energy Requirements: Paia Weight for Energy Calculation (kg): 54 kg Total Energy Requirements (kcals/day): 2403-2485 Weight Used for Protein Requirements: Paia Weight in Kg Used for Protein Requirements: [...] 160# 07/05) % Weight Change (Calculated): 12.2 Paia Body Weight (lbs) (Calculated): 119 lbs Paia Body Weight (Kg) (Calculated): 54 kg BMI [...] to determine Gabriella Michelle RD, LD Contact: [phone] [facility] 08-06-2024 Consult note Associated Order (s): [...] assess Fluid Accumulation: No significant fluid accumulation Ios Developer Strength: Not Performed Nutrition Assessment: Pt hx HTN, stroke, COPD, CKD, IBS. Admitted w/ vomiting and diarrhea. +norovirus. Started on abx for concern of aspiration pna. Pt's symptoms have improved during admission. Consuming and tolerating CLD. Medically stable for discharge back to SNF per notes. Estimated Daily Nutrient Needs: Energy Requirements Based On: Kcal/kg Weight Used for Energy Requirements: Paia Weight for Energy Calculation (kg): 54 kg Total Energy Requirements (kcals/day): 3293-9684 Weight Used for Protein Requirements: Paia Weight in Kg Used for Protein Requirements: [...] 160# 07/05) % Weight Change (Calculated): 12.2 Paia Body Weight (lbs) (Calculated): 119 lbs Paia Body Weight (Kg) (Calculated): 54 kg BMI [...] to determine Gabriella Michelle RD, LD Contact: [phone] documented in this encounter [facility] 08-06-2024 Plan of care note Problem: Knowledge Deficit Goal: Patient/family/caregiver demonstrates understanding of disease process, treatment plan, medications, and discharge instructions Outcome: Progressing Problem: Potential for Compromised Skin Integrity Goal: Skin Integrity is Maintained or Improved Outcome: Progressing Goal: Nutritional status is improving Outcome: Progressing Problem: Urinary Incontinence Goal: Perineal skin integrity is maintained or improved Outcome: Progressing [facility] 08-05-2024 Plan of care note Problem: Knowledge Deficit Goal: Patient/family/caregiver demonstrates understanding of disease process, treatment plan, medications, and discharge instructions Outcome: Progressing Problem: Potential for Compromised Skin Integrity Goal: Skin Integrity is Maintained or Improved Outcome: Progressing Goal: Nutritional status is improving Outcome: Progressing Problem: Urinary Incontinence Goal: Perineal skin integrity is maintained or improved Outcome: Progressing [facility] 08-04-2024 Plan of care note Problem: Knowledge Deficit Goal: Patient/family/caregiver demonstrates understanding of disease process, treatment plan, medications, and discharge instructions Outcome: Progressing Problem: Potential for Compromised Skin Integrity Goal: Skin Integrity is Maintained or Improved Outcome: Progressing Goal: Nutritional status is improving Outcome: Progressing Problem: Urinary Incontinence Goal: Perineal skin integrity is maintained or improved Outcome: Progressing [facility] 08-04-2024 Nurse Note Bedside swallow completed. Pt passed and tolerated well tolerated well. [facility] 08-04-2024 Plan of care note Problem: Knowledge Deficit Goal: Patient/family/caregiver demonstrates understanding of disease process, treatment plan, medications, and discharge instructions Outcome: Progressing Problem: Potential for Compromised Skin Integrity Goal: Skin Integrity is Maintained or Improved Outcome: Progressing Goal: Nutritional status is improving Outcome: Progressing Problem: Urinary Incontinence Goal: Perineal skin integrity is maintained or improved Outcome: Progressing [facility] 08-03-2024 Plan of care note Problem: Knowledge [...] 0842 by Lima Saenz RN Outcome: Progressing [facility] 08-03-2024 Note Formatting of this n ote might be different from the original. Return referral placed to [facility] via Careport per TCC request. Await review and response regarding ability to accept. TCC notified. [facility] 08-03-2024 Note Formatting of this n ote might be different from the original. Return referral placed to [facility] via Careport per TCC request. Await review and response regarding ability to accept. TCC notified. [facility] 08-03-2024 Note Return referral plac ed to [facility] via Careport per TCC request. Await review and response regarding ability to accept. TCC notified. [facility] 08-03-2024 Note Formatting of this n ote might be different from the original. Pt to ED w N/V/Diarrhea, was Dx w Aspiration pneumonitis. Started on IV ATB's. Called pt's Dtr, Fidel, . Pt is from [facility]. Plan on returning. [facility] tasked to send a return referral. [facility] 08-03-2024 Note Formatting of this n ote might be different from the original. Pt to ED w N/V/Diarrhea, was Dx w Aspiration pneumonitis. Started on IV ATB's. Called pt's Dtr, Fidel, . Pt is from [facility]. Plan on returning. [facility] tasked to send a return referral. [facility] 08-03-2024 History and physical note Attending History and Physical Admit Date: 08/03/2024 PCP: Jared Evans MD CHIEF COMPLAINT: vomiting/diarrhea Reason for Admission: aspiration pneumonitis History Obtained From: patient HISTORY OF PRESENT ILLNESS: Mel is a 83 y.o. female with past medical history below who presents with chief complaint listed above.Patient is an 83 y/o female who presented to [facility] early this AM from local [place] for vomiting and diarrhea. Patient reported she [...] Resource Strain: Low Risk (06/20/2024) Received from [facility] Medical Overall Financial Resource Strain (CARDIA) [...] min Stress: Patient Unable To Answer (08/03/2024) [place] [employer] - Occupational Stress Questionnaire Feeling of Stress : Patient unable to answer Social Connections: Unknown (08/03/2024) Social Connection and Isolation Panel [NHANES] Frequency of Communication with Friends and Family: Patient unable to answer Frequency of Social Gatherings with Friends and Family: Patient unable to answer Attends Scientologist Services: Patient unable to answer Active Member of Clubs or Organizations: Patient unable to answer Attends Club or Organization Meetings: Never Marital Status: Patient unable to answer Recent Concern: Social Connections - Moderately Isolated (06/20/2024) Received from [facility] Medical Social Connection and Isolation Panel [NHANES] Frequency of Communication with Friends and Family: More than three times a week Frequency of Social Gatherings with Friends and Family: Once a week Attends Scientologist Services: More than 4 times per year [...] mgmt was pursued: - inpatient admission to [facility] tele - check stool studies and [...] - DO NOT do CPR, intubation] [_] [DNR-SMALL ARMS ARTILLERY REPAIRER - Comfort care only] [_] DNR form [...] Shivani Dimas PA-C Division of Hospitalist Medicine [facility] Cosigned by Abbi Long DO [...] sounds present no guarding or regular rigidity Recite Me Work Phone: 08-03-2024 Note [employer] [employer] Sys tem [facility] 08-03-2024 History and physical note Attending History and Physical Admit Date: 08/03/2024 PCP: Jared Evans MD CHIEF COMPLAINT: vomiting/diarrhea Reason for Admission: aspiration pneumonitis History Obtained From: patient HISTORY OF PRESENT ILLNESS: Mel is a 83 y.o. female with past medical history below who presents with chief complaint listed above.Patient is an 83 y/o female who presented to [place] [facility] early this AM from local [place] for vomiting and diarrhea. Patient reported she [...] Resource Strain: Low Risk (06/20/2024) Received from [facility] Overall Financial Resource Strain (CARDIA) [...] min Stress: Patient Unable To Answer (08/03/2024) [employer] - Occupational Stress Questionnaire Feeling of Stress : Patient unable to answer Social Connections: Unknown (08/03/2024) Social Connection and Isolation Panel [NHANES] Frequency of Communication with Friends and Family: Patient unable to answer Frequency of Social Gatherings with Friends and Family: Patient unable to answer Attends Scientologist Services: Patient unable to answer Active Member of Clubs or Organizations: Patient unable to answer Attends Club or Organization Meetings: Never Marital Status: Patient unable to answer Recent Concern: Social Connections - Moderately Isolated (06/20/2024) Received from [facility] Medical Social Connection and Isolation Panel [NHANES] Frequency of Communication with Friends and Family: More than three times a week Frequency of Social Gatherings with Friends and Family: Once a week Attends Scientologist Services: More than 4 times per year [...] mgmt was pursued: - inpatient admission to [facility] tele - check stool studies and [...] - DO NOT do CPR, intubation] [_] [DNR-SMALL ARMS ARTILLERY REPAIRER - Comfort care only] [_] DNR form [...] Shivani Dimas PA-C Division of Hospitalist Medicine [facility] Cosigned by Abbi Long DO [...] or regular rigidity documented in this encounter [facility] 08-03-2024 Plan of care note Problem: Potential for Compromised Skin Integrity Goal: Skin Integrity is Maintained or Improved 08/03/2024 0842 by Lima Saenz RN Outcome: Progressing 08/03/2024 0842 by Lima Saenz RN Outcome: Progressing Problem: Potential for Compromised Skin Integrity Goal: Nutritional status is improving 08/03/2024 08 by Lima Saenz RN Outcome: Progressing 08/03/2024 08 by Lima Saenz RN Outcome: Progressing [facility] 08-03-2024 Plan of care note Problem: Knowledge Deficit Goal: Patient/family/caregiver demonstrates understanding of disease process, treatment plan, medications, and discharge instructions Outcome: Progressing Problem: Potential for Compromised Skin Integrity Goal: Skin Integrity is Maintained or Improved Outcome: Progressing [facility] 08-03-2024 Emergency department Note Pt placed in roundtrip [facility] 08-03-2024 Emergency department Note Pt placed [...] minutes prior to ED transport for long-term. [facility] reports a second resident with similar symptoms earlier today. No known flu or COVID exposures. Patient denying other flu or COVID symptoms such as headache, myalgias, fevers, congestion, cough. Nursing Notes were reviewed. Limitations to history: None Outside historians: [facility] staff (Jabari) REVIEW OF SYSTEMS Review of [...] Resource Strain: Low Risk (06/20/2024) Received from [facility] Overall Financial Resource Strain (CARDIA) Difficulty of Paying Living Expenses: Not very hard Food Insecurity: No Food Insecurity (07/09/2024) Received from [facility] Hunger Vital Sign Worried About Running Out of Food in the Last Year: Never true Ran Out of Food in the Last Year: Never true Transportation Needs: No Transportation Needs (07/09/2024) Received from [facility] PRAPARE - Transportation Lack of Transportation (Medical): No Lack of Transportation (Non-Medical): No Physical Activity: Inactive (04/04/2024) Exercise Vital Sign Days of Exercise per Week: 0 days Minutes of Exercise per Session: 0 min Stress: No Stress Concern Present (06/19/2024) Received from [facility] [place] of Occupational Health - Occupational Stress Questionnaire Feeling of Stress : Not at all Social Connections: Moderately Isolated (06/20/2024) Received from [facility] Medical Social Connection and Isolation Panel [NHANES] Frequency of Communication with Friends and Family: More than three times a week Frequency of Social Gatherings with Friends and Family: Once a week Attends Scientologist Services: More than 4 times per year Active Member of Clubs or Organizations: No Attends Club or Organization Meetings: Never Marital Status: Intimate Partner Violence: Not At Risk (06/19/2024) Received from [facility] Medical Domestic Abuse Assessment Do you feel safe in your relationships at home?: Yes Physical Abuse: Denies Verbal Abuse: Denies Housing Stability: Low Risk (07/09/2024) Received from [facility] Housing Stability Vital Sign Unable to [...] In compliance with this authorization, please visit www.fda.gov/media/249966/download or www.fda.gov/media/429737/download to access the applicable information sheets. LIPASE [...] minutes prior to ED transport for long-term. [facility] reports a second resident with similar symptoms [...] Patient admitted to medical service at [facility] under Dr. Parrish. ED Medications [...] IMPRESSION 1. Aspiration pneumonitis (CMS/HCC) ([facility]) 2. Vomiting and diarrhea 3. LORENZA (acute kidney injury) ([facility]) DISPOSITION Observation 08/03/2024 04:20:39 AM PATIENT REFERRED [...] DO 08/03/24 0422 documented in this encounter [facility] 08-03-[address] and ED xray notified that patient is ready [facility] 08-03-2024 Physician Emergency department Note EMERGENCY [...] minutes prior to ED transport for long-term. [facility] reports a second resident with similar symptoms earlier today. No known flu or COVID exposures. Patient denying other flu or COVID symptoms such as headache, myalgias, fevers, congestion, cough. Nursing Notes were reviewed. Limitations to history: None Outside historians: [facility] staff (Jabari) REVIEW OF SYSTEMS Review of Systems Negative except per HPI PAST MEDICAL HISTORY Past Medical History: Diagnosis Date Arrhythmia PAF Asthma Chronic kidney disease COPD (chronic obstructive pulmonary disease) (HCC) DVT (deep venous thrombosis) (HCC) Essential hypertension 03/07/2020 GERD (gastroesophageal reflux disease) Hiatal hernia IBS (irritable bowel syndrome) Pure hypercholesterolemia 03/07/2020 PVD (peripheral vascular disease) ([facility]) Stroke (HCC) SURGICAL HISTORY Past Surgical History: [...] Resource Strain: Low Risk (06/20/2024) Received from [facility] Overall Financial Resource Strain (CARDIA) Difficulty of Paying Living Expenses: Not very hard Food Insecurity: No Food Insecurity (07/09/2024) Received from [facility] Hunger Vital Sign Worried About Running Out of Food in the Last Year: Never true Ran Out of Food in the Last Year: Never true Transportation Needs: No Transportation Needs (07/09/2024) Received from [facility] PRAPARE - Transportation Lack of Transportation (Medical): No Lack of Transportation (Non-Medical): No Physical Activity: Inactive (04/04/2024) Exercise Vital Sign Days of Exercise per Week: 0 days Minutes of Exercise per Session: 0 min Stress: No Stress Concern Present (06/19/2024) Received from [facility] [place] of Occupational Health - Occupational Stress Questionnaire Feeling of Stress : Not at all Social Connections: Moderately Isolated (06/20/2024) Received from [facility] Social Connection and Isolation Panel [NHANES] Frequency of Communication with Friends and Family: More than three times a week Frequency of Social Gatherings with Friends and Family: Once a week Attends Scientologist Services: More than 4 times per year Active Member of Clubs or Organizations: No Attends Club or Organization Meetings: Never Marital Status: Intimate Partner Violence: Not At Risk (06/19/2024) Received from [facility] Domestic Abuse Assessment Do you feel safe in your relationships at home?: Yes Physical Abuse: Denies Verbal Abuse: Denies Housing Stability: Low Risk (07/09/2024) Received from [facility] Housing Stability Vital Sign Unable to [...] No bowel dilatation Report Dictated on Workstation: [employer] Electronically Signed By: Ming Fry MD Electronically Signed Date/Time: 08/03/2024 4:05 AM EST XR chest 1 view Final Result No acute abnormality Report Dictated on Workstation: [employer] Electronically Signed By: Ming Fry MD [...] In compliance with this authorization, please visit www.fda.gov/media/897295/download or www.fda.gov/media/343473/download to access the applicable information sheets. LIPASE [...] minutes prior to ED transport for long-term. [facility] reports a second resident with similar symptoms [...] Patient admitted to medical service at [facility] under Dr. Parrish. ED Medications [...] IMPRESSION 1. Aspiration pneumonitis (CMS/HCC) ([facility]) 2. Vomiting and diarrhea 3. OLRENZA (acute kidney injury) ([facility]) DISPOSITION Observation 08/03/2024 04:20:39 AM PATIENT REFERRED [...] Medicine Provider Mariana King DO 08/03/24 0422 [facility] 08-01-2024 Instructions Savana Lopez MD - 08/01/2024 1:06 PM EST - Continue Pred forte 4x / day right eye - Stop Cipro - Stop Brimonidine - Continue erythromycin antibiotic ointment as needed - Continue Atropine daily RIGHT eye - Continue Timolol 2x / day RIGHT EYE documented in this encounter [facility] 08-01-2024 Note HNO ID: [id number] Author: SAVANA LOPEZ MD Service: ? Author [...] choroidals (not yet appositional) - Evaluated at [place] 07/12/24 with intense nausea and multiple episodes [...] to HTN (SBP 199/99 at presentation to [place]) and anticoagulation that led to angle closure [...] agree with all of its relevant components. [facility] 08-01-2024 History of Present illness [...] 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 documented in this encounter [facility] 07-30-2024 Note HNO ID: [id number] Author: JOHN PHELAN MD Service: ? Author [...] agree with all of its relevant components. [facility] 07-30-2024 Note HNO ID: [id number] Author: JOHN PHELAN MD Service: ? Author [...] agree with all of its relevant components. [facility] 07-27-2024 Instructions Nicolas Sahu MD [...] Ciprofloxacin (flores cap) 4x daily Atropine (red cross worker) 1x daily Continue timolol (yellow cap) 2x [...] C Trouble breathing Contact Dr. Savana Lopez [phone] from 8am-5pm During non-business hours, please call [phone] or ext [phone] and ask for the eye doctor network liaison. documented in this encounter [facility] 07-27-2024 Note HNO ID: [id number] Author: NICOLAS SAHU MD Service: ? Author [...] scheduled Nicolas Sahu MD Vitreoretinal Surgery Fellow [facility] 07-27-2024 History of Present illness [...] Vitreoretinal Surgery Fellow documented in this encounter [facility] 07-27-2024 Note HNO ID: [id number] Author: MIKHAIL NICHOLS APRN.CENTRAL OFFICE REPAIRER SUPERVISOR Service: ? Author Type: Nurse Medical Staff Services Manager Type: Anesthesia Procedure Notes Filed: 07/27/2024 11:25 Note Text: ANESTHESIOLOGY PROCEDURE NOTE Airway General Information Procedure Start Time/Medication Administration: 07/27/2024 11:21 AM Procedure End Time: 07/27/2024 11:24 AM Staffing Anesthesiologist: Robinson Brunner MD CENTRAL OFFICE REPAIRER SUPERVISOR: Mikhail Nichols APRN.CENTRAL OFFICE REPAIRER SUPERVISOR Performed by: anesthesiologist and CENTRAL OFFICE REPAIRER SUPERVISOR Indications and Patient Condition Indications for airway management: anesthesia Preoxygenated: yes Patient position: sniffing Method: asleep Final Airway Details Final airway type: supraglottic airway Number of attempts at approach: 1 Final Supraglottic Airway: LMA Classic Size 4 Seal Adequate: yes Failed airway: no Unrecognized esophageal intubation: no SIGNATURE: Mikhail Nichols APRN.CENTRAL OFFICE REPAIRER SUPERVISOR PATIENT NAME: Mel Castillo DATE: July 27, 2024 TIME: 11:24 AM CSN: [id number] [facility] 07-24-2024 Note Date of Procedure 07/23/2024. Ore Buyer Information Accountant Property: WESLEY. Start time: 10:44 AM. No view. In wheelchair. Unable to get low enough for photo in downgaze without discomfort. Notes Hazy view, VH; choroidals; possible RD [facility] 07-24-2024 Note Date of Procedure 07/23/2024. Ore Buyer Information STEWART Donovan 07/23/2024 11:24 AM Reviewed [...] - Decrease atropine daily right eye (red cross worker) - Continue prednisolone QID right eye (pink [...] Pavilion on the first floor at the [facility]. My surgical technology instructor is Gaston, her number is [phone] Please do no wear contact lenses. We [...] retina fellow. It will be at the [facility] on the 2nd floor. We will [...] Regine Gan in the Pre-anesthesia Consultation Clinic ([phone]) to get instructions on their use before [...] call Regine Gan or a Pre-Anesthesia Testing wallpaper remover steam at [phone]. documented in this encounter [facility] 07-23-2024 Note HNO ID: [id number] Author: SAVANA LOPEZ MD Service: ? Author [...] to the ED, evaluated by ophthalmology (Dr. Carlsno) found to have shallow AC with IOP [...] choroidals (not yet appositional) - Evaluated at [place] 07/12/24 with intense nausea and multiple episodes [...] to HTN (SBP 199/99 at presentation to [place]) and anticoagulation that led to angle closure [...] agree with all of its relevant components. [facility] 07-23-2024 History of Present illness [...] 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 documented in this encounter [facility] 07-18-2024 Note HNO ID: [id number] Author: JACI JUAREZ RN Service: Nursing Author Type: Registered Nurse Type: Progress Notes Filed: 07/18/2024 14:08 Note Text: Report given to nurse at [facility]. Transport running behind schedule. [facility] 07-16-2024 Note HNO ID: [id number] Author: MICHAEL SOARES MD Service: Ophthalmology Author Type: Resident Type: Plan of Care Filed: 07/16/2024 21:02 Note Text: Patient evaluated today at [facility] by retina attending Dr. Lopez. [...] choroidals (not yet appositional) - Evaluated at [place] 07/12/24 with intense nausea and multiple episodes [...] be admitted for this but may need usp facility due to limited vision in her monocular eye; she has a very poor prognosis; there is no guarantee surgery will improve her vision but need to wait for any possible surgery for more liquefaction; maybe could do 07/31/24? - I will see her in 1 week for repeat B-scan OD / Optos OD [facility] 07-16-2024 Note HNO ID: [id number] Author: ALAINA TIPTON RN Service: ? Author [...] Doctor Josep, on the division, and aware. [facility] 07-16-2024 Note HNO ID: [id number] Author: TRACEY NANCE RN Service: Care Management Author Type: Registered Nurse Type: Care Mgt Progress Note Filed: 07/16/2024 16:49 Note Text: CARE MANAGEMENT PROGRESS NOTE SERVICE DATE: 07/16/2024 SERVICE TIME: 1:04 PM LOS: 9 days Post-Acute Discharge Planning Patient Goal(s): Increase strength [place] of Choice Explained: Discharge Planning Participant(s): Patient/Family Comments: Anticipated # of Days Until Discharge: 0 Transport at Discharge: Needs Prior to Discharge: Needs Prior to Discharge: OT/PT Evaluation Post-Acute Discharge Plan: Discharge to [facility] per FOC. Await updated PT for pre cert initiation. SIGNATURE: Tracey Nance RN PATIENT NAME: Mel Castillo DATE: July 16, 2024 TIME: 1:04 PM [facility] 07-16-2024 Note Date of Procedure 07/16/2024. Ore Buyer Information Accountant Property: Arin Vital. Start time: 8:56 AM. Stop time: 8:56 AM. Notes OD only; Hard view 360 hemorrhagic choroidals [facility] 07-16-2024 Note Date of Procedure 07/16/2024. Ore Buyer Information STEWART Donovan 07/16/2024 9:34 AM . [...] choroidals (not yet appositional) - Evaluated at [place] 07/12/24 with intense nausea and multiple episodes [...] be admitted for this but may need usp facility due to limited vision in her [...] its relevant components. documented in this encounter [facility] 07-16-2024 Note HNO ID: [id number] Author: SAVANA LOPEZ MD Service: ? Author [...] choroidals (not yet appositional) - Evaluated at [place] 07/12/24 with intense nausea and multiple episodes [...] to HTN (SBP 199/99 at presentation to [place]) and anticoagulation that led to angle closure [...] be admitted for this but may need usp facility due to limited vision in her [...] of its relev (more content not included)... [facility] 07-16-2024 Note HNO ID: [id number] Author: BRIANA PRITCHARD MD Service: General Internal Medicine Author Type: Physician Type: Progress Notes Filed: 07/16/2024 14:26 Note Text: Internal Medicine - Dae Chaudhry Progress Note Patient Name: Mel Castillo Patient Location: [facility] 031/[id number] Admission Date: 07/07/2024 Length of Stay: 9 Primary Service: DAE Chaudhry Staff: Briana Pritchard MD Primary Service: Dae Chaudhry INTERVAL HISTORY: - No acute events overnight. Bradycardic to 50s overnight but this AM HDS and afebrile - This AM seen by ophthalmology at [facility] Optho appointment Objective MEDICATIONS: Current [...] Drain Duration External Collection Device 07/15/24 1000 [facility] <1 day Intake/Output 07/12/24 0700 - [...] PMH of COPD (more content not included)... [facility] 07-15-2024 Note HNO ID: [id number] Author: OTILIO GERBER MD Service: Ophthalmology Author [...] to HTN (SBP 199/99 at presentation to [place]) that caused angle closure and elevated IOP [...] BRING PATIENT DOWN FOR FOLLOW UP AT [facility] - Post-op precautions reviewed, including: Signs and symptoms of endophthalmitis, and retinal detachment warning signs reviewed, including increasing floaters, flashes or changes in peripheral vision. [facility] 07-15-2024 Note HNO ID: [id number] Author: BRIANA PRITCHARD MD Service: General Internal Medicine Author Type: Physician Type: Progress Notes Filed: 07/15/2024 12:59 Note Text: Internal Medicine - Dae Chaudhry Progress Note Patient Name: Mel Castillo Patient Location: [place] [id number] Admission Date: 07/07/2024 Length of [...] 9.1 9.3 9.3 (more content not included)... [facility] 07-14-2024 Note HNO ID: [id number] Author: BRIANA PRITCHARD MD Service: Hospital Medicine Author Type: Physician Type: Progress Notes Filed: 07/14/2024 13:37 Note Text: Internal Medicine - Dae Chaudhry Progress Note Patient Name: Mel Castillo Patient Location: [place] [id number] Admission Date: 07/07/2024 Length of Stay: 7 [...] Castillo is a (more content not included)... [facility] 07-14-2024 Note HNO ID: [id number] Author: NICOLAS SAHU MD Service: Ophthalmology Author [...] to HTN (SBP 199/99 at presentation to [place]) that caused angle closure and elevated IOP [...] vision. Nicolas Sahu MD Vitreoretinal Surgery Fellow [facility] 07-13-2024 Note HNO ID: [id number] Author: MARCIA MARTINS APRN.CENTRAL OFFICE REPAIRER SUPERVISOR Service: ? Author Type: Nurse Medical Staff Services Manager Type: Anesthesia Procedure Notes Filed: 07/13/2024 12:43 Note Text: ANESTHESIOLOGY PROCEDURE NOTE Airway General Information Procedure Start Time/Medication Administration: 07/13/2024 12:28 PM Procedure End Time: 07/13/2024 12:42 PM Patient location during procedure: OR Timeout Performed Pre-procedure: timeout performed Consent Obtained: Yes Patient identity confirmed: arm band, care wallpaper remover steam and patient Staffing CENTRAL OFFICE REPAIRER SUPERVISOR: Marcia Martins APRN.CENTRAL OFFICE REPAIRER SUPERVISOR Performed by: CARIE Indications and Patient Condition Indications for airway management: anesthesia Preoxygenated: yes anesthesia circuit Method: sleep Difficult Mask: No Final Airway Details Final airway type: supraglottic airway Number of attempts at approach: 1 Final Supraglottic Airway: Supraglottic airway: ambu auraonce. Size 4 Seal Adequate: yes Failed airway: no Unrecognized esophageal intubation: no Airway not difficult Comments atraumatic SIGNATURE: Marcia Martins APRN.CENTRAL OFFICE REPAIRER SUPERVISOR PATIENT NAME: Mel Castillo DATE: July 13, 2024 TIME: 12:42 PM CSN: [id number] [facility] 07-13-2024 Note HNO ID: [id number] Author: FELICIA LEVY MD Service: General Internal [...] of vision now s/p laser iridotomy at [place] then trasnferred to [facility] for further management. S/p multiple [...] Patient Name: Mel Castillo Patient Location: [address] [facility]/[id number] Admission Date: 07/07/2024 Length of Stay: 6 [...] mg ORAL DAILY (more content not included)... [facility] 07-12-2024 Note HNO ID: [id number] Author: TRACEY NANCE RN Service: Care Management Author Type: Registered Nurse Type: Care Mgt Progress Note Filed: 07/12/2024 16:50 Note Text: CARE MANAGEMENT PROGRESS NOTE SERVICE DATE: 07/12/2024 SERVICE TIME: 4:46 PM LOS: 5 days Post-Acute Discharge Planning Patient Goal(s): Increase strength [place] of Choice Explained: Discharge Planning Participant(s): Patient/Family [...] DATE: July 12, 2024 TIME: 4:46 PM [facility] 07-12-2024 Note Date of Procedure 07/12/2024. Ore Buyer Information CAHR Veliz ROUB 07/12/2024 12:15 PM . Notes B scan OD: From wheelchair. Patient vomiting during this visit. Best images possible. 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 Possible increased height maximum now at 12:00 measuring 10.0 mm. 2) Not able to assess for mobility today due to patient discomfort 3) SRF over choroidals in three quadrants. [facility] 07-12-2024 Note Date of Procedure 07/12/2024. Ore Buyer Information Accountant Property: JACQUELINE. Imaging Comments: Limited exam due to patient discomfort-best images possible . Notes Worsening choroid detachments [facility] 07-12-2024 Note HNO ID: [id number] Author: THOMAS SCHMITZ MD Service: ? Author [...] to HTN (SBP 199/99 at presentation to [place]) that caused angle closure and elevated IOP [...] Resident, PGY-[address] Phelan [facility] 07-12-2024 History of Present illness [...] choroidals (not yet appositional) - Evaluated at [place] 07/12/24 with intense nausea and multiple episodes [...] to HTN (SBP 199/99 at presentation to [place]) that caused angle closure and elevated IOP [...] with Dr. Phelan documented in this encounter [facility] 07-12-2024 Note HNO ID: [id number] Author: FELICIA LEVY MD Service: General Internal [...] of vision now s/p laser iridotomy at [place] then trasnferred to [facility] for further management. S/p multiple [...] possible dispo to SNF or home with [facility] (challenging given multiple daily eye drops and medications) - Rest per excellent note by resident Signature: Felicia Levy MD Date: 07/12/2024 Time: 1:27 PM Internal Medicine - Dae Chaudhry Progress Note Patient Name: Mel Castillo [id number] Admission Date: 07/07/2024 Length of Stay: [...] ORAL BID HYDROmorpho (more content not included)... [facility] 07-11-2024 Note HNO ID: [id number] Author: FELICIA LEVY MD Service: General Internal [...] of vision now s/p laser iridotomy at [place] then trasnferred to [facility] for further management. S/p multiple [...] Note Patient Name: Mel Castillo [address] Admission Date: 07/07/2024 Length of Stay: [...] H PRN AL (more content not included)... [facility] 07-10-2024 Note HNO ID: [id number] Author: FELICIA LEVY MD Service: General Internal [...] of vision now s/p laser iridotomy at [place] then trasnferred to [facility] for further management. S/p multiple [...] Range in last (more content not included)... [facility] 07-09-2024 Note HNO ID: [id number] Author: TRACEY NANCE RN Service: Care Management [...] Relation: Other Admission Status: Inpatient [facility] Discharge Planning requested by: Per Department Practice Potential Transition Plans Home Care Advance Directives Current Advance Directive: Health Care Power of Marketing Communications Coordinator In Chart: Yes Up To Date and Valid: Yes Current Living Arrangements and Support Lives with: Alone Type of Residence: Mobile Home Support: Friends/neighbors, Family members How do you manage to accomplish the following: Independent: Ambulation;Bathe/Shower;Dress;Angélica g to the bathroom Needs Assistance: Meals/Meal Prep;Medication Management;Transportation to appointments/community Current Services/Equipment Discharge Planning Patient Goal(s): Increase strength [place] of Choice Explained: [place] of Choice Given: Yes Level of Care Discussed: Home Care Are you interested in bedside delivery of your medications? Yes Discharge Planning Participant(s): Caregiver;Family Patient/Family Comments: Fidel Hdez (Other) Caregiver Assessment: Caregiver is ready, willing and able to meet the patient's needs as recommended by the inter-professional team: (friends) Transport at Discharge: Transportation Arrangements: Car Destination: [id number] [address] [facility] [address] [place] [place] [address] Needs Prior to Discharge: Post-Acute Discharge Plan: Anticipate DC home with [facility] 24-48 hours. HC referrals placed . Await OT evaluation. Patient lives alone in trailer , There are 4 steps to entrance, Using rolator prior to admission. Patient independent with ADL and assist with iADL prior to admission.Patient receives meals on wheels. Family transport to appointments and can provide typewriter assembly and parts inspector assist. Family transport home. This CM spoke [...] DATE: July 09, 2024 TIME: 4:07 PM [facility] 07-09-2024 Note HNO ID: [id number] Author: NADIA VIDAL ? Service: Pharmacy Author Type: Hospital Admissions Officer Type: Plan of Care Filed: 07/09/2024 12:31 Note Text: Insurance investigation completed Patient has active prescription insurance: Yes - Patient's insurance is in-network with [facility] Insurance loaded into [employer]: Yes Test claim was completed to verify insurance is active: Successful Any questions, please reach out to your medication clerical coordinator. [facility] 07-09-2024 Note HNO ID: [id number] Author: GISSELL POPE RPh Service: Pharmacy Author Type: Pharmacist Type: Plan of Care Filed: 07/09/2024 12:32 Note Text: PHARMACY MEDICATION REVIEW Patient Name: Mel Castillo : 1940 The following medications were updated within the JEWEL SUPERVISOR medication list: Medications ADDED to JEWEL SUPERVISOR medication list Furosemide 40 mg prn swelling Medications CHANGED on JEWEL SUPERVISOR medication list Lisinopril 10 mg changed to 40 mg Increased from 5 mg daily to 40 mg daily on last hospital discharge Medications REMOVED from JEWEL SUPERVISOR medication list Albuterol HFA PRN Lidocaine 4% [...] Yes Completed by: Gissell Pope RPh All JEWEL SUPERVISOR medications addressed by LIP Patient interested in Bedside Delivery Services or using OP Pharmacy at discharge? Yes. Discharge Pharmacy Updated Preferred outpatient pharmacy: e- [id number] [place] [address] [address] [facility] [phone] [facility] Allergies: Percocet [Oxycodone* Itching [...] Inject 0.7 mL subcutaneously every 12 hours. tmwsaiczrhs-zxhnrncbv-hqgcmlcu (TRELEGY ELLIPTA) 100-62.5-25 mcg inhalation powder 07/06/2024 [...] Drop (MYDRIACYL) None recorded 1 Gissell Pope [facility] 07/09/2024 [facility] 07-09-2024 Note HNO ID: [id number] Author: OTILIO GERBER MD Service: ? Author [...] Follow up with Dr. Lopez Monday 07/16 [facility] eye clinic -Can continue anticoagulation -Patient [...] NLP vision Otilio Gerber MD Ophthalmology Resident [facility] Patient seen and discussed with Dr. Phelan [facility] 07-09-2024 History of Present illness [...] Follow up with Dr. Lopez Monday 07/16 [facility] eye clinic -Can continue anticoagulation -Patient [...] NLP vision Otilio Gerber MD Ophthalmology Resident [facility] Patient seen and discussed with Dr. Phelan documented in this encounter [facility] 07-09-2024 Note HNO ID: [id number] Author: FELICIA LEVY MD Service: General Internal [...] of vision now s/p laser iridotomy at [facility] then trasnferred to [facility] for further management. S/p multiple [...] (ml) -2 350 (more content not included)... [facility] 07-08-2024 Note HNO ID: [id number] Author: FELICIA LEVY MD Service: Hospital Medicine [...] of vision now s/p laser iridotomy at [facility] then trasnferred to [facility] for further management. Plan: - [...] Note Patient Name: Mel Castillo [address] Admission Date: 07/07/2024 Length of Stay: [...] 07/07/24 1853 12/ (more content not included)... [facility] 07-07-2024 Note HNO ID: [id number] Author: JARED GILMORE MD Service: ? Author [...] components. Jared Gilmore MD Vitreoretinal Surgery Fellow [facility] 07-07-2024 History of Present illness [...] with Dr. Gilmore documented in this encounter [facility] 07-07-2024 Note [facility] 07-07-2024 Hospital course Narrative Discharge Summary [...] COPD (chronic obstructive pulmonary disease) ([facility]) DVT (deep venous thrombosis) ([facility]) Essential hypertension 03/07/2020 GERD (gastroesophageal reflux disease) Hiatal hernia IBS (irritable bowel syndrome) Pure hypercholesterolemia 03/07/2020 PVD (peripheral vascular disease) ([facility]) Stroke ([facility]) Procedures: multiple peripheral iridotomies Hospital Course: See [...] Ellipta 100-62.5-25 MCG/ACT aerosol powder Generic drug: Lbhzhfmjabb-Dsbltubma-Emnghg STOP taking these medications albuterol 108 (90 [...] 0.5 % ophthalmic solution Recommended Follow-up: Tre Lobmardi MD [address] [place] [address] [address] [facility] [address] Call in 2 month(s) Need follow up in December 2024 for aneurysm surveillence Complexity of Follow up: [] Moderate Complexity: follow up within 7-14 calendar days (11210) [x] Severe Complexity: follow up within 7 calendar days (20583) - after DC from [facility] Follow up [...] Division of Hospitalist Medicine [facility] 07/07/2024, 11:08 AM documented in this encounter [facility] 07-07-2024 Nurse Note Report called to [facility]. [facility] 07-07-2024 Nurse Note Report called to [facility]. This RN called Protective Services to try and locate pts lost glasses from 07/05/2024. Glasses that match the description are in lost and found. Will attempt to see if glasses are a match. documented in this encounter [facility] 07-07-2024 Note Formatting of this n [...] Length of Stay (Days): 0 GMLOS: 2.3 [facility] 07-07-2024 Note Formatting of this n [...] Length of Stay (Days): 0 GMLOS: 2.3 [facility] 07-07-2024 Miscellaneous Notes Care Management Progress [...] in mobile home. Consults in progress. Need [facility] to follow - does have pcp [...] is working on this . With staff. [facility] she is agreeable to it if [...] - DO NOT do CPR, intubation] [_] [DNR-SMALL ARMS ARTILLERY REPAIRER - Comfort care only] [_] DNR form [...] family/surrogate. Silvio Peres MD [facility] 07/05/2024, 1:18 PM documented in this encounter [facility] 07-07-2024 History of Present illness Narrative Nutrition rescreen completed. Chart reviewed. Patient to be monitored and followed by the diet repair technician. Images from the original note were not included. PHYSICAL THERAPY [facility] Initial Evaluation Name/MRN: Mel Pop ([id number]) Evaluation Date: 07/06/2024 Date of : 1940 Admission Date: 07/05/2024 4:21 AM Age: 83 y.o. Room/Bed: W3324/W3324 A Discharge Recommendation: Care Home Facility Equipment Needed: (tbd) Assessment IMPRESSION: [...] COPD (chronic obstructive pulmonary disease) ([facility]) DVT (deep venous thrombosis) ([facility]) Essential hypertension 03/07/2020 GERD (gastroesophageal reflux disease) Hiatal hernia IBS (irritable bowel syndrome) Pure hypercholesterolemia 03/07/2020 PVD (peripheral vascular disease) ([facility]) Stroke ([facility]) Past Surgical History: Past Surgical History: Procedure [...] vessels of proximal lower extremity ([facility]) 04/14/2024 Peripheral arterial disease ([facility]) 04/03/2024 Immunodeficiency due to conditions classified elsewhere ([facility]) 07/27/2023 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 ([facility]) 07/27/2023 Bilateral pneumonia 06/16/2022 COVID-19 06/16/2022 Hypothyroidism 06/16/2022 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[facility]) 06/16/2022 Cellulitis 05/18/2022 Nicotine use disorder 05/18/2022 Acute venous embolism and thrombosis of deep vessels of proximal end of right lower extremity ([facility]) 04/19/2024 Atrial fibrillation, unspecified type ([facility]) 04/19/2024 Irritable bowel syndrome with diarrhea 03/07/2020 Microscopic hematuria 03/07/2020 Left retinal detachment 03/07/2020 Hyperglycemia 03/07/2020 Osteopenia of left femoral neck 03/07/2020 senior living current use of anticoagulant therapy 03/07/2020 Seasonal allergies 03/07/2020 Chronic renal insufficiency, stage III (moderate) ([facility]) 03/07/2020 Major depression, single episode, in complete remission ([facility]) 03/07/2020 Gastroesophageal reflux disease without esophagitis 03/07/2020 Essential hypertension 03/07/2020 Pure hypercholesterolemia 03/07/2020 Overweight 03/07/2020 Psoriasis 03/07/2020 History of cerebrovascular accident 03/07/2020 Atrial fibrillation ([facility]) 03/07/2020 Chronic obstructive pulmonary disease ([facility]) 03/07/2020 Finger osteomyelitis, right ([facility]) 03/06/2020 Medical Precautions: No active isolations Proper [...] support system of friends and family Active Diabetic Educator: Prior Level of Function Prior Level of [...] Care supervision is transferred to a [facility] Therapy Services Physical Therapist. Goals and/or treatment plan was established in collaboration with patient/family/other representatives. Hospitalist Progress Note 07/06/2024 Subjective: Admit Date: 07/05/2024 PCP: Jared Evans MD Room#: [facility] A BRIEF HOSPITAL COURSE: Per admitting hospitalist's [...] COPD (chronic obstructive pulmonary disease) ([facility]) DVT (deep venous thrombosis) ([facility]) Essential hypertension 03/07/2020 GERD (gastroesophageal reflux disease) Hiatal hernia IBS (irritable bowel syndrome) Pure hypercholesterolemia 03/07/2020 PVD (peripheral vascular disease) ([facility]) Stroke ([facility]) LABS: CBC: Recent Labs 07/05/24 0435 07/06/24 [...] Henderson DO Division of Hospitalist Medicine [facility] documented in this encounter [facility] 07-06-2024 Nurse Note This RN called Protective Services to try and locate pts lost glasses from 07/05/2024. Glasses that match the description are in lost and found. Will attempt to see if glasses are a match. [facility] 07-06-2024 Telephone encounter Note TELEPHONE ENCOUNTER 07/06/2024 Patient with recent stroke and admitted to [facility] where she was noted to have elevated IOP with retinal detachment of the right eye by consult cream tester. She has a history of RD in [...] optos OU Ryan Elizondo MD Ophthalmology Resident [facility] Work Phone: 07-06-2024 Miscellaneous Notes TELEPHONE ENCOUNTER 07/06/2024 Patient with recent stroke and admitted to [facility] where she was noted to have elevated IOP with retinal detachment of the right eye by consult cream tester. She has a history of RD in [...] MD Ophthalmology Resident documented in this encounter [facility] 07-06-2024 Note Formatting of this n [...] is working on this . With staff. [facility] she is agreeable to it if goes home . [employer] 07-06-2024 Note Formatting of this n ote might be different from the original. Complicated discharge , live alone, poor vision - PT/OT now ordered- live in mobile home. Consults in progress. Need [facility] to follow - does have pcp [...] is working on this . With staff. [facility] she is agreeable to it if goes home . [employer] 07-06-2024 Consult note Formatting of th is [...] referral to a retinal subspecialist at either [facility] or [facility] for repair of retinal detachment right eye (OD). Continue ophthalmic pressure lowering ophthalmic meds right eye (OD) until seen by retinal subspecialist. [employer] Work Phone: 07-06-2024 Consult note Formatting of [...] referral to a retinal subspecialist at either [facility] or [facility] at [facility] for repair of retinal detachment right [...] Inpatient consult to Endovascular Neurology--[facility] Inpatient consult to Endovascular Neurology--[facility] Consult performed by: Helga Naik APRN - SOAP TENDER Consult ordered by: Wm Nunes DO Reason [...] COPD (chronic obstructive pulmonary disease) ([facility]), DVT (deep venous thrombosis) ([facility]), Essential hypertension (03/07/2020), GERD (gastroesophageal reflux disease), Hiatal hernia, IBS (irritable bowel syndrome), Pure hypercholesterolemia (03/07/2020), PVD (peripheral vascular disease) ([facility]), and Stroke ([facility]). She has no past medical history of Cancer ([facility]) ([facility]), Cerebral artery occlusion with cerebral infarction ([facility]), CHF (congestive heart failure) ([facility]), Diabetes mellitus ([facility]), Hemodialysis patient ([facility]) ([facility]), blood clots, or MDRO (multiple drug resistant [...] Name: Mel Pop Patient : 1940 Acct: [id number] Date of Admission: 07/05/2024 Room/Bed: 60/60 PCP: [...] COPD (chronic obstructive pulmonary disease) ([facility]) DVT (deep venous thrombosis) ([facility]) Essential hypertension 03/07/2020 GERD (gastroesophageal reflux disease) Hiatal hernia IBS (irritable bowel syndrome) Pure hypercholesterolemia 03/07/2020 PVD (peripheral vascular disease) ([facility]) Stroke ([facility]) Past Surgical History: Past Surgical History: Procedure [...] Historical Provider, ergocalciferol (Vitamin D2) 1.25 MG (16226 UT) capsule Take 1.25 mg by mouth [...] MG tablet Take as directed by [facility] Anticoagulation Clinic (90 tablets = 90 [...] , Rfl: ergocalciferol (Vitamin D2) 1.25 MG (10919 UT) capsule, Take 1.25 mg by mouth [...] MG tablet, Take as directed by [facility] Anticoagulation Clinic (90 tablets = 90 [...] this patient's care. documented in this encounter [facility] 07-05-2024 Consult note Formatting of th [...] started. Will continue to follow. [facility] 07-05-[address] Carlson at bedside. [facility] 07-05-[address] Carlson [...] to Maritza FRAGA Emergency Department Encounter Location: [facility] EMERGENCY DEPT Patient: Mel Pop : [...] 423 ms QTC Interval 418 ms P Luke 0 degrees QRS Luke 37 degrees T Wave Luke 29 degrees W[place] Interval 0 ms Troponin, [...] IV. I discussed with Dr. Peres from [facility] hospitalist service who accepted the admit. Medications [...] Given 07/05/24 0517) I am not the chief informatics officer of record. Dr. Nunes is the chief informatics officer of record. Final Impression 1. Vision loss [...] MD 07/05/24 1322 documented in this encounter [facility] 07-05-2024 Note Formatting of this n [...] - DO NOT do CPR, intubation] [_] [DNR-SMALL ARMS ARTILLERY REPAIRER - Comfort care only] [_] DNR form [...] family/surrogate. Silvio Peres MD [facility] 07/05/2024, 1:[address] [facility] 07-05-2024 Note Formatting of this n [...] - DO NOT do CPR, intubation] [_] [DNR-SMALL ARMS ARTILLERY REPAIRER - Comfort care only] [_] DNR form [...] and/or family/surrogate. Silvio Peres MD Acute care [facility] 07/05/2024, 1:[address] 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 History Obtained From: patient and patient's bwopvern-ei-zxp HISTORY OF PRESENT ILLNESS: Mel is a [...] Resource Strain: Low Risk (06/20/2024) Received from [facility] Overall Financial Resource Strain (CARDIA) Difficulty of Paying Living Expenses: Not very hard Food Insecurity: No Food Insecurity (06/20/2024) Received from [facility] Hunger Vital Sign Worried About Running Out of Food in the Last Year: Never true Ran Out of Food in the Last Year: Never true Transportation Needs: No Transportation Needs (07/02/2024) Received from [facility] Transportation Source Has lack of transportation [...] No Stress Concern Present (06/19/2024) Received from [facility] [place] of Occupational Health - Occupational Stress Questionnaire Feeling of Stress : Not at all Social Connections: Moderately Isolated (06/20/2024) Received from [facility] Social Connection and Isolation Panel [NHANES] Frequency of Communication with Friends and Family: More than three times a week Frequency of Social Gatherings with Friends and Family: Once a week Attends Scientologist Services: More than 4 times per year Active Member of Clubs or Organizations: No Attends Club or Organization Meetings: Never Marital Status: Intimate Partner Violence: Not At Risk (06/19/2024) Received from [facility] Domestic Abuse Assessment Do you feel safe in your relationships at home?: Yes Physical Abuse: Denies [facility] Domestic Abuse - Type of Abuse: Not on file [facility] Domestic Abuse - Time Frame: Not on file [facility] Domestic Abuse - Signs and Symptoms: Not on file Verbal Abuse: Denies [facility] Domestic Abuse - Reported To: Not on file Housing Stability: Low Risk (06/20/2024) Received from [facility] Housing Stability Vital Sign Unable [...] the evening. ergocalciferol (Vitamin D2) 1.25 MG (68521 UT) capsule Take 1.25 mg by mouth [...] MG tablet Take as directed by [facility] Anticoagulation Clinic (90 tablets = 90 [...] 07/05/2024 [facility]: [facility]EL POP : 1940 [id number] Exam Date/Time: 07/05/2024 11:45 Procedure: MR BRAIN [...] : 1940 [facility]#: [id number] Exam Date/Time: 07/05/2024 04:36 Procedure: CT HEAD [...] : 1940 [facility]#: [id number] Exam Date/Time: 07/05/2024 04:36 Procedure: CT HEAD [...] 07/05/2024 Patient Name: MEL POP : 1940 [id number] Exam Date/Time: 07/05/2024 04:36 Procedure: CT PERFUSION [...] glucose meter Result Date: 07/05/2024 Performed by: [facility], [address] [place] [address] CLIA ID: [id number] Assessment / Plan Discussed management with the [...] Hospitalist Medicine [employer] Dictated using [employer] Speaking Medical Version 2.4 Proof read however unrecognized voice recognition errors may have occurred [employer] Work Phone: 07-05-2024 Note [employer] [facility] 07-05-2024 History and physical note Attending History and Physical Admit Date: 07/05/2024 PCP: Jared Evans MD CHIEF COMPLAINT: Loss of vision right eye, headache/eye pain, nausea, eye swelling Reason for Admission: 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 History Obtained From: patient and patient's eaacndxh-mx-hbz HISTORY OF PRESENT ILLNESS: Mel is a [...] Resource Strain: Low Risk (06/20/2024) Received from [facility] Overall Financial Resource Strain (CARDIA) Difficulty of Paying Living Expenses: Not very hard Food Insecurity: No Food Insecurity (06/20/2024) Received from [facility] Hunger Vital Sign Worried About Running Out of Food in the Last Year: Never true Ran Out of Food in the Last Year: Never true Transportation Needs: No Transportation Needs (07/02/2024) Received from [facility] SDMA Transportation Source Has lack of transportation kept you from medical appointments or from getting medications?: No Has lack of transportation kept you from meetings, work, or from getting things needed for daily living?: No Physical Activity: Inactive (04/04/2024) Exercise Vital Sign Days of Exercise per Week: 0 days Minutes of Exercise per Session: 0 min Stress: No Stress Concern Present (06/19/2024) Received from [facility] [place] of [facility]ational Health - Occupational Stress Questionnaire Feeling of Stress : Not at all Social Connections: Moderately Isolated (06/20/2024) Received from [facility] Social Connection and Isolation Panel [NHANES] Frequency of Communication with Friends and Family: More than three times a week Frequency of Social Gatherings with Friends and Family: Once a week Attends Scientologist Services: More than 4 times per year Active Member of Clubs or Organizations: No Attends Club or Organization Meetings: Never Marital Status: Intimate Partner Violence: Not At Risk (06/19/2024) Received from [facility] Domestic Abuse Assessment Do you feel safe in your relationships at home?: Yes Physical Abuse: Denies [facility] Domestic Abuse - Type of Abuse: Not on file [facility] Domestic Abuse - Time Frame: Not on file [facility] Domestic Abuse - Signs and Symptoms: Not on file Verbal Abuse: Denies [facility] Domestic Abuse - Reported To: Not on file Housing Stability: Low Risk (06/20/2024) Received from [facility] Housing Stability Vital Sign Unable to [...] the evening. ergocalciferol (Vitamin D2) 1.25 MG (00422 UT) capsule Take 1.25 mg by mouth [...] MG tablet Take as directed by [facility] Anticoagulation Clinic (90 tablets = 90 [...] 07/05/2024 Patient Name: MEL POP : 1940 [id number] Exam Date/Time: 07/05/2024 04:36 Procedure: CT HEAD [...] : 1940 [facility]#: [id number] Exam Date/Time: 07/05/2024 04:36 Procedure: CT PERFUSION [...] glucose meter Result Date: 07/05/2024 Performed by: [facility], [address] [place] [address] CLIA ID: [id number] Assessment / Plan Discussed management with the [...] Hospitalist Medicine [employer] Dictated using [employer] Version 2.4 Proof read however unrecognized voice recognition errors may have occurred documented in this encounter [facility] [employer] 07-05-2024 Emergency department Note Provider notified of patient request for pain meds. [facility] [employer] 07-05-2024 Consult note Associated Order (s): IP [...] drops to be discontinued after [address] [facility] 07-05-2024 Consult note Associated Order (s): Inpatient consult to Endovascular Neurology--[facility] Inpatient consult to Endovascular Neurology--[facility] Consult performed by: Helga Naik APRN - [facility] Consult ordered by: Wm Nunes DO [...] COPD (chronic obstructive pulmonary disease) ([facility]), DVT (deep venous thrombosis) ([facility]), Essential hypertension (03/07/2020), GERD (gastroesophageal reflux disease), Hiatal hernia, IBS (irritable bowel syndrome), Pure hypercholesterolemia (03/07/2020), PVD (peripheral vascular disease) ([facility]), and Stroke ([facility]). She has no past medical history of Cancer (CMS/HCC) ([facility]), Cerebral artery occlusion with cerebral infarction ([facility]), CHF (congestive heart failure) ([facility]), Diabetes mellitus ([facility]), Hemodialysis patient ([facility]) ([facility]), blood clots, or MDRO (multiple drug resistant [...] ., . Personal review of: Imaging,Labs,Old Records},.},. [employer] Phone: 07-05-[address] Carlson at bedside [facility] 07-05-2024 Emergency department Note Patient is returning back to room 32 at this time with Jose, Medic. [facility] 07-05-2024 Emergency department Note Pt currently at eye clinic with RADHA Hinkle for emergent eye laser procedure. [facility] 07-05-2024 Note Pt currently at eye clinic with RADHA Hinkle for emergent eye laser procedure. [facility] 07-05-2024 Emergency department Note Pt emergently going to eye clinic. Pt being transported in wheelchair with trauma float RADHA Hinkle and Maritza FRAGA Pt being transported on zoll monitor and acls kit. [facility] 07-05-2024 Emergency department Note Ophthalmology at bedside [facility] 07-05-2024 Emergency department Note Report to Maritza FRAGA [facility] 07-05-2024 Consult note Associated Order (s): IP CONSULT TO STROKE TEAM STROKE TEAM NOTE Patient Name: Mel Pop Patient : 1940 Acct: [id number] Date of Admission: 07/05/2024 Room/Bed: 60/60 PCP: [...] Historical Provider, ergocalciferol (Vitamin D2) 1.25 MG (80700 UT) capsule Take 1.25 mg by mouth [...] MG tablet Take as directed by [facility] Anticoagulation Clinic (90 tablets = 90 [...] , Rfl: ergocalciferol (Vitamin D2) 1.25 MG (11745 UT) capsule, Take 1.25 mg by mouth [...] MG tablet, Take as directed by [facility] Anticoagulation Clinic (90 tablets = 90 [...] 4:46 AM EST. Report Dictated on Workstation: [employer] Electronically Signed By: Cirilo Ray DR [...] 4:46 AM EST. Report Dictated on Workstation: [employer] Electronically Signed By: Cirilo Ray DR [...] and patient's plan of care with my MERILN/resident/ Fellow , student and the consulting team [...] to be involved in this patient's care. [employer] Phone: 07-05-2024 Physician Emergency department Note Emergency Department Encounter Location: [facility] EMERGENCY DEPT Patient: Mel Pop : [...] 423 ms QTC Interval 418 ms P Luke 0 degrees QRS Luke 37 degrees T Wave Luke 29 degrees [place] Interval 0 ms Troponin, [...] IV. I discussed with Dr. Peres from [facility] hospitalist service who accepted the admit. Medications [...] Given 07/05/24 0517) I am not the chief informatics officer of record. Dr. Nunes is the chief informatics officer of record. Final Impression 1. Vision loss of right eye 2. Acute intractable headache, unspecified headache type DISPOSITION Observation 07/05/2024 01:21:52 PM (Please note that portions of this note may have been completed with a voice recognition program. Efforts were made to edit the dictations but occasionally words are mis-transcribed.) Jhonatan Hernandez MD [employer] Jhonatan Hernandez MD 07/05/[address] [facility] 06-19-2024 Note HNO ID: [id number] Author: JOSE GONZALEZ [facility] Service: Pharmacy Author Type: Pharmacist Type: [...] with neuroendovascular for ICA aneurysm Jose Gonzalez [facility] Pager: Nora/Hailey cervantes 06/19/2024 1:31 PM [...] ELLIPTA 100-62.5-25 mcg inhalation powder Generic drug: wohmcpwrrri-kcuakasts-mabhuqdx VITAMIN C 500 mg tablet Generic drug: [...] as: COUMADIN zinc oxide 20 % ointment [facility] 06-19-2024 Note HNO ID: [id number] Author: ROSLYN ROSE RN Service: Care Management [...] Arrangements: Ambulance Transportation Agency and Phone #:: 5 CUPS and some sugar [facility] ) [phone] / [phone] Date of Trip: 06/19/24 Time of Trip: 1800 Type of Service: BLS Non-emergency Centralized Traffic Control Operator Location: [facility] Destination: [facility] Financial Care Management Responsibility: None Handoff Communication: Handoff to: Specialty Brush Holder Assembler Specialty Brush Holder Assembler [facility] Additional Information: Patient has insurance precert and is discharging to [facility] today via [facility] at 6:00 PM. Spoke with patient at bedside and son José Miguel via phone who are aware and agreeable. Transfer envelope with chart. Care team aware via [employer] chat. Discharge Information Row Name ED to Hosp-Admission (Current) from 06/10/2024 in [place] [address] NEURO/CARD Rehab Facility Agency [facility] SIGNATURE: Roslyn Rose RN PATIENT NAME: Mel Castillo DATE: June 19, 2024 TIME: 1:10 PM CONTACT #: [phone] [facility] 06-19-2024 Note HNO ID: [id number] Author: DON EDWARDS DO Service: Hospital Medicine Author Type: Physician Type: Progress Notes Filed: 06/19/2024 12:53 Note Text: DEPARTMENT OF HOSPITAL MEDICINE PROGRESS NOTE SERVICE DATE: 06/19/2024 SERVICE TIME: 10:10 AM Hospital Medicine/Primary Attending: Don Edwards DO NIGHT AND WEEKEND COVERAGE: JENNIE COVERAGE: From 7am - 7pm, please call [phone] After 7pm, please call cross cover pager #[phone] Subjective INTERVAL HPI: Pt seen and examined. [...] 22 Gauge -- days Peripheral 06/12/24 0427 [facility] Short Right Forearm 20 Gauge 7 [...] -- 06/11/24 0730 vte current [place]ag therapy ([place] 06/11/24 0730 activity - mobilize patient ([place] VTE Prophylaxis: VTE prophylaxis appropriate Disposition: Acute Rehab Plan of care discussed with: Provider, RN, Patient SIGNATURE: Don Edwards DO PATIENT NAME: Mel Castillo DATE: June 19, 2024 TIME: 10:10 AM etx [id number] [facility] 06-18-2024 Note HNO ID: [id number] Author: ANABEL VEGA, Mabel Service: Care Management Author Type: ? Type: Care Mgt Progress Note Filed: 06/18/2024 17:18 Note Text: [facility] PRECERT NOTE [employer] MEDICARE PPO approved Inpatient Rehab Facility for [facility]. Precert approved for dates: - 06/26/2024. For any additional questions regarding approvals, transport or care management needs, please contact the CM assigned to this patient in the Treatment Team. SIGNATURE: Anabel Vega DATE: June 18, 2024 TIME: 5:17 PM [facility] 06-18-2024 Note HNO ID: [id number] Author: MARK MINOR DO Service: Hospital Medicine Author Type: Physician Type: Progress Notes Filed: 06/18/2024 16:17 Note Text: DEPARTMENT OF HOSPITAL MEDICINE PROGRESS NOTE SERVICE DATE: 06/18/2024 SERVICE TIME: 4:06 PM Hospital Medicine/Primary Attending: Mark Minor DO NIGHT AND WEEKEND COVERAGE: After 7pm please page [phone] SUBJECTIVE: Patient seen examined at bedside. No [...] Yes) Chronic atrial (more content not included)... [facility] 06-18-2024 Note HNO ID: [id number] Author: ROSLYN ROSE RN Service: Care Management Author Type: Registered Nurse Type: Care Mgt Progress Note Filed: 06/18/2024 12:32 Note Text: CARE MANAGEMENT PROGRESS NOTE SERVICE DATE: 06/18/2024 SERVICE TIME: 9:01 AM LOS: 7 days Chart reviewed. Insurance precert is pending for [facility] Rehab. Will need precert and cot transport. CM to follow for transitional care planning. ADDENDUM at 10:20 AM- Spoke with patient at bedside and provided update on pending precert. Received message from [facility] that insurance is requesting updated PT/OT evals and notified therapy. SIGNATURE: Roslyn Rose RN PATIENT NAME: Mel Castillo DATE: June 18, 2024 TIME: 9:01 AM PAGER/CONTACT #: [phone] [facility] 06-17-2024 Note HNO ID: [id number] Author: DON EDWARDS DO Service: Hospital Medicine Author Type: Physician Type: Progress Notes Filed: 06/17/2024 13:52 Note Text: DEPARTMENT OF HOSPITAL MEDICINE PROGRESS NOTE SERVICE DATE: 06/17/2024 SERVICE TIME: 11:15 AM Hospital Medicine/Primary Attending: Don Edwards DO NIGHT AND WEEKEND COVERAGE: [place] COVERAGE: From 7am - 7pm, please call [phone] After 7pm, please call cross cover pager #[phone] Subjective INTERVAL HPI: Pt seen and examined. [...] 22 Gauge -- days Peripheral 06/12/24 0427 [facility] Short Right Forearm 20 Gauge 5 [...] eliquis. She was seen by therapy and [facility] facility was recommended. Acute embolic stroke with [...] -- 06/11/24 0730 vte current anticoag therapy ([place]) 06/11/24 0730 activity - mobilize [place] ([place] VTE Prophylaxis: VTE prophylaxis appropriate Disposition: Acute Rehab Plan of care discussed with: Provider, RN, Patient SIGNATURE: Don Edwards DO PATIENT NAME: Mel Castillo DATE: June 17, 2024 TIME: 11:15 AM etx [id number] [facility] 06-16-2024 Note HNO ID: [id number] Author: DON EDWARDS DO Service: Hospital Medicine Author Type: Physician Type: Progress Notes Filed: 06/16/2024 13:06 Note Text: DEPARTMENT OF HOSPITAL MEDICINE PROGRESS NOTE SERVICE DATE: 06/16/2024 SERVICE TIME: 11:00 AM Hospital Medicine/Primary Attending: Don Edwards DO NIGHT AND WEEKEND COVERAGE: AMBOY COVERAGE: From 7am - 7pm, please call [phone] After 7pm, please call cross cover pager #[phone] Subjective INTERVAL HPI: Pt seen and examined. [...] 22 Gauge -- days Peripheral 06/12/24 0427 [facility] Short Right Forearm 20 Gauge 4 days Drain Duration Indwelling Urinary Catheter 06/11/24 1535 [facility] Ceballos 16 Fr 4 days Reviewed [...] -- 06/11/24 0730 vte current anticoag therapy ([place]) 06/11/24 0730 activity - mobilize patient ([place] VTE Prophylaxis: VTE prophylaxis appropriate Disposition: Acute Rehab Plan of care discussed with: Provider, RN, Patient SIGNATURE: Don Edwards DO PATIENT NAME: Mel Castillo DATE: June 16, 2024 TIME: 11:00 AM etx [id number] [facility] 06-15-2024 Note HNO ID: [id number] Author: ERA TELLES MD Service: Hospital Medicine [...] June 15, 2024 TIME: 2:40 PM PAGER: [facility] 06-15-2024 Note HNO ID: [id number] Author: ISHAN October,N.SOAP TENDER Service: Urology Author Type: Nurse Practitioner Type: Plan of Care Filed: 06/15/2024 12:16 Note Text: Urology Plan of Care Note RN reached out asking about a void trial today. Notes pt has bloody urine. Pt seen at bedside. Pt eating lunch. Vanessa urine in tubing at this time. Will place PRN irrigation orders if urine is bloody again. [facility] urology resident network liaison if urine is grade 4 or higher. Plan was to void trial prior to [place]. Pt currently states she is unsure when she is going to rehab. CM note from this morning states waiting precert to [facility]. Since it is already after 12pm,, will maintain ceballos catheter. Can void trial tomorrow morning if plan is to DC 06/16. [facility] urology resident at 7am on day of DC for void trial orders. - D/W team. RN sent a secure chat message as she was in with another patient when I was on the unit. Ariana Mercer APRN 06/15/2024 12:11 PM Page network liaison resident with questions [facility] 06-15-2024 Note HNO ID: [id number] Author: ROSLYN ROSE RN Service: Care Management Author Type: Registered Nurse Type: Care Mgt Progress Note Filed: 06/15/2024 09:38 Note Text: CARE MANAGEMENT PROGRESS NOTE SERVICE DATE: 06/15/2024 SERVICE TIME: 9:36 AM LOS: 4 days Chart reviewed. [facility] Will need precert and cot transport. Will place transfer envelope with chart that has signed portable DNR form attached. CM to follow for transitional care planning. SIGNATURE: Roslyn Rose RN PATIENT NAME: Mel Castillo DATE: June 15, 2024 TIME: 9:36 AM PAGER/CONTACT #: [phone] [facility] 06-14-2024 Note HNO ID: [id number] Author: JENNIFER FERNANDEZ RN Service: Nursing Author Type: Registered Nurse Type: Nursing Progress Note Filed: 06/14/2024 17:35 Note Text: 1610: paged urology for voiding trial awaiting response [facility] 06-14-2024 Note HNO ID: [id number] Author: ERA TELLES MD Service: Hospital Medicine [...] June 14, 2024 TIME: 2:47 PM PAGER: [facility] 06-13-2024 Note HNO ID: [id number] Author: EDIE CASTAÑEDA MD Service: Hospital Medicine Author Type: Physician Type: Progress Notes Filed: 06/13/2024 14:18 Note Text: DEPARTMENT OF HOSPITAL MEDICINE Hospital Medicine/Primary Attending: Edie Castañeda MD NIGHT AND WEEKEND COVERAGE: After 7pm please page [phone] MEDICATIONS: Current Facility-Administered Medications Medication Dose Route [...] interatrial septum. Patient sees Dr. Padilla at [facility]. Cardiology saw patient in hospital, recommended Lovenox at discharge for lifelong. 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 Continue heparin drip. Will transition to therapeutic lovenox tonight (discussed patel and affordability with patient, lin (more content not included)... [facility] 06-13-2024 Note HNO ID: [id number] Author: CARLYLE GUZMÁN RN Service: Care Management Author Type: Registered Nurse Type: Care Mgt Progress Note Filed: 06/13/2024 13:00 Note Text: CARE MANAGEMENT PROGRESS NOTE SERVICE DATE: 06/13/2024 SERVICE TIME: 12:54 PM LOS: 2 days Needs Prior to Discharge: To Be Determined;Precertification;Discha rge Transportation [facility] and copy placed in patient's chart. Spoke with the patient and CHERYL Stokes about accepting facilities. [facility]. Precert started for [facility]. Cot transport is on standby. Will to continue to follow for transitional care planning. SIGNATURE: Carlyle Guzmán RN PATIENT NAME: Mel Castillo DATE: June 13, 2024 TIME: 12:54 PM PAGER/CONTACT #: [phone] [facility] 06-12-2024 Note HNO ID: [id number] Author: SHARONA MCDERMOTT MD Service: Hospital Medicine [...] interatrial septum. Patient sees Dr. Padilla at [facility]. Cardiology saw patient in hospital, recommended [...] COPD Smoker Not (more content not included)... [facility] 06-12-2024 Note HNO ID: [id number] Author: DEBORAH PEACE RN Service: Care Management Author Type: Registered Nurse Type: Care Mgt Progress Note Filed: 06/12/2024 16:10 Note Text: CARE MANAGEMENT PROGRESS NOTE SERVICE DATE: 06/12/2024 SERVICE TIME: 4:09 PM LOS: 1 day [place] Choice Given: Yes Level of Care Discussed: Inpatient Rehab Facility Financial Disclosure Provided: Yes Provider List: Rehab Facility Provider list within the patient's requested geographic area shared with the patient/family: Yes within: 15 miles of zip code: [address] Quality and resource use metrics shared with the patient that are relevant to the patient's goals of care and treatment preferences:: Yes Spoke with pt about pt/ot recs for acute rehab, pt agreeable to list , [facility] but pt would like to discuss acute rehab with her ; referral sent to [facility] SIGNATURE: Deborah Peace RN PATIENT NAME: Mel Castillo DATE: June 12, 2024 TIME: 4:09 PM PAGER/CONTACT #: [phone] [facility] 06-12-2024 Note HNO ID: [id number] Author: ANDREEA KING LSW Service: Care Management Author Type: Comic Illustrator Type: Care Mgt Progress Note Filed: 06/12/2024 [...] 12, 2024 TIME: 3:20 PM PAGER/CONTACT #: [phone] [facility] 06-11-2024 Note HNO ID: [id number] Author: CARLYLE GUZMÁN RN Service: Care Management [...] Home Advance Directives Current Advance Directive: None Staff Certified Nurse Midwife Attempted to Assist with AD Completion: Yes [...] General wellness, Be able to go home [place] Choice Explained: [place] of Choice Given: No Reason Not Given: [...] 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 +PCP, +DME, +RX coverage, family to provide DC transportation. Will to continue to follow for transitional care planning. SIGNATURE: Carlyle Guzmán RN PATIENT NAME: Mel Castillo DATE: June 11, 2024 TIME: 3:41 PM CONTACT #: [phone] [facility] 06-11-2024 Note Spoke with Melany Evans's office and she stated that patient is scheduled in their office tomorrow, 06/12 for INR check. I faxed her out last progress note. I will inactivate patient from our service. [facility] 05-21-2024 History of Present illness Narrative INR reported on by Christin with [facility]. Christin can be reached at [phone] with questions. Images from the original note were not included. [facility] Anticoagulation Management Service ([facility]) Anticoagulation Clinic [address] [place] [address], [address], [place] [id number] Subjective HPI Mel (1940) had INR completed [...] PharmD, BCACP, CACP documented in this encounter [facility] 05-09-2024 History of Present illness Narrative Graciela from [facility] called in results. Images from the original note were not included. [facility] Anticoagulation Management Service ([facility] Anticoagulation Clinic [address] [place] [address], [address], [place] [address] Megan Choi (1940) had INR completed by [...] Perez PharmD, BCPS documented in this encounter [facility] 05-01-2024 History of Present illness Narrative Tia- [facility]- [phone] Images from the original note were not included. [facility] Anticoagulation Management Service ([facility] Anticoagulation Clinic [address] [place] [address], [address], [place] [id number] Subjective HPI Mel (1940) had INR completed [...] 5 mg daily Next INR Check: 05/08/2024 [facility] Patient educated on the following: dietary/lifestyle considerations and Vitamin K content and consistency Patient care coordination completed: N/A Patient given verbal instructions. Patient expressed understanding utilizing the teach back method. Time spent 10 Minutes Won Tipton RN staffed with Chalino Tolbert, BCACP, CACP documented in this encounter [facility] 04-27-2024 Telephone encounter Note Pt requested refill on warfarin 5mg. Sent to [facility]. Receipt confirmed by pharmacy. [facility] 04-27-2024 Miscellaneous Notes Pt requested refill on warfarin 5mg. Sent to [facility]. Receipt confirmed by pharmacy. documented in this encounter [facility] 04-25-2024 History of Present illness Narrative [...] significant pain. She is following with [facility] clinic for Warfarin, switched from Eliquis. [...] (5mg) on 04/15 Follow up with [facility] pharmacy for further dosing 04/13/24 Jordin [...] min Stress: No Stress Concern Present (04/04/2024) [employer] - Occupational Stress Questionnaire Feeling of Stress : Not at all Social Connections: Moderately Isolated (04/04/2024) Social Connection and Isolation Panel [NHANES] Frequency of Communication with Friends and Family: More than three times a week Frequency of Social Gatherings with Friends and Family: More than three times a week Attends Scientologist Services: 1 to 4 times per year [...] -Recovering well -Recommend continuing warfarin per [facility] clinic -Continue to elevate as needed. [...] (around 07/26/2024). . documented in this encounter [facility] 04-19-2024 History of Present illness Narrative Graciela with [facility] reports INR on vm Graciela can be reached at [phone] with any questions. Images from the original note were not included. [facility] Anticoagulation Management Service ([facility]) Anticoagulation Clinic [address] [place] [address], [address], [place] [address] Subjective TYSON Rizoda (1940) had INR completed [...] Perez, PharmD, BCPS documented in this encounter [facility] 04-14-2024 History of Present illness Narrative Placed new order for POCT INR, [facility] had not received. documented in this encounter [facility] 04-14-2024 Miscellaneous Notes Addended by: PATTY DUGGAN on: 04/16/2024 07:01 AM Modules accepted: Orders Addended by: HARMONY GREY on: 04/16/2024 08:41 AM Modules accepted: Orders documented in this encounter [facility] 04-14-2024 Note Addended by: PATTY DUGGAN on: 04/16/2024 07:01 AM Modules accepted: Orders [facility] 04-14-2024 Note Addended by: HARMONY GREY on: 04/16/2024 08:41 AM Modules accepted: Orders [facility] 04-14-2024 Note Addended by: PATTY DUGGAN on: 04/16/2024 07:01 AM Modules accepted: Orders [facility] 04-14-2024 Note Addended by: HARMONY GREY on: 04/16/2024 08:41 AM Modules accepted: Orders [facility] 04-14-2024 Note Addended by: PATTY DUGGAN on: 04/16/2024 07:01 AM Modules accepted: [facility] 04-14-2024 Note Addended by: HARMONY GREY on: 04/16/2024 08:41 AM Modules accepted: [facility] 04-13-2024 Nurse Note AVS explained. Discharged patient on stable condition. [facility] 04-13-2024 Nurse Note AVS explained. Discharged patient on stable condition. Instructed patient on warfarin dosing, she will take 7.5mg tomorrow, and 5mg Tuesday, and then we will check INR with home care on Tuesday as instructed. NO changes to heparin infusion at this time. documented in this encounter [facility] 04-13-2024 Nurse Note Instructed patient on warfarin dosing, she will take 7.5mg tomorrow, and 5mg Tuesday, and then we will check INR with home care on Tuesday as instructed. [facility] 04-13-2024 Note Formatting of this n ote might be different from the original. Phone conversation with the [facility]. Patient was wondering what services were being provided and what expectations to have for [facility]. I explained her current ordered services and she stated she understood. Patient then asked if she could have meals delivered. I explained I would reach out to her social science teacher here at the hospital for further guidance on resources when she gets home. Secure chat sent to KEESHA Basilio regarding this. [facility] 04-13-2024 Note Formatting of this n ote might be different from the original. Phone conversation with the patient [facility]. Patient was wondering what services were being provided and what expectations to have for [facility]. I explained her current ordered services and she stated she understood. Patient then asked if she could have meals delivered. I explained I would reach out to her social science teacher here at the hospital for further guidance on resources when she gets home. Secure chat sent to KEESHA Basilio regarding this. [facility] 04-13-2024 Miscellaneous Notes Phone conversation with the patient [facility] the [facility] her [facility] care. Patient was wondering what services were being provided and what expectations to have for [facility]. I explained her current ordered services and she stated she understood. Patient then asked if she could have meals delivered. I explained I would reach out to her social science teacher here at the hospital for further guidance on resources when she gets home. Secure chat sent to KEESHA Basilio regarding this. Images from the original note were not included. Care Management Progress Note INR 2.3 today. Hep drip continued, plan to DC to [facility] today. Plan to have PT seen patient today per her request. Patient is active with [facility]. Await treatment plan and clinical progress. talent program manager will continue to follow for transitional [...] vasc consult 04/06/2024 Bernie Cutler APRN - SOAP TENDER 04/04/2024 4:04 AM 04/06/2024 Bernie Cutler APRN - SOAP TENDER 04/03/2024 11:17 PM Length of Stay (Days): [...] discharge. Await treatment plan and clinical progress. talent program manager will continue to follow for transitional care needs for discharge planning. Discharge Milestones and Delays Expected date/time: 04/13/2024 Expected discharge disposition: Home Health Services Discharge Milestones Place discharge order Complete med reconciliation Case mgmt discharge readiness Clinical Stability Diagnostic Workup Coating Manager Recommendations Facility Choice Selection Imaging Results PT [...] to oral when appropriate. [facility]- will continue services at discharge. Await treatment plan and clinical progress. talent program manager will continue to follow for transitional [...] discharge. Await treatment plan and clinical progress. talent program manager will continue to follow for transitional care needs for discharge planning. Discharge Milestones and Delays Expected date/time: 04/11/2024 Expected discharge disposition: Home or Self Care Discharge Milestones Place discharge order Complete med reconciliation Case mgmt discharge readiness Clinical Stability Diagnostic Workup Coating Manager Recommendations Facility Choice Selection Imaging Results Patient [...] coumadin. Consult Hemology. Pt active with [facility]- will continue services at discharge. Await treatment plan and clinical progress. talent program manager will continue to follow for transitional care needs for discharge planning. Discharge Milestones and Delays Expected date/time: 04/10/2024 Expected discharge disposition: Home or Self Care Discharge Milestones Place discharge order Complete med reconciliation Case mgmt discharge readiness Clinical Stability Diagnostic Workup Coating Manager Recommendations Facility Choice Selection Imaging Results Patient [...] with completion of Health Care Power of Marketing Communications Coordinator. One copy placed in patient chart, one copy sent to medical records and two copies given to patient. Requested by patient, while at bedside this SW spoke to patient's son via patients phone to explain that HCPOA was being completed by patient. Patients son José Miguel Castilol ([phone]) agreed to be this patients agent on [...] technique was used to place a 5 Senegalese sheath. A Bentson wire was able to be advanced in the inferior vena cava without difficulty. The 5 Senegalese sheath was then upsized to a 16 Senegalese sheath and the penumbra flash suction thrombectomy device was prepared per tallier's instructions. The patient was also given 5000 units of heparin for systemic anticoagulation at this time. The Penumbra device was then inserted through the 16 Senegalese sheath and a suction thrombectomy was performed [...] device was removed as was the 16 Senegalese sheath and an 0 silk suture was [...] Blankenship MD Vascular Surgery Date: 04/06/2024 Location: [facility] OR Name: Mel Pop, : 1940, Diagnosis Pre-op Diagnosis * Right leg DVT (HCC) [I82.401] Post-op Diagnosis * Right leg DVT (HCC) [I82.401] Procedures RIGHT LOWER EXTREMITY VENOUS MECHANICAL THROMBECTOMY 00809 - [place] PRQ TRANSLUMINAL MECHANICAL THROMBECTOMY VEIN Surgeons * Kristyn Blankenship - Primary Procedure Summary Anesthesia: General ASA: III Estimated Blood Loss: 300 mL Drains: * None in log * Staff: Hepatologist: Negrita Elizabeth RN; Amira Burton RN Scrub [...] vasc consult 04/06/2024 Bernie Cutler APRN - SOAP TENDER 04/04/2024 4:04 AM 04/06/2024 Bernie Cutler APRN [...] Limits Permission given to speak with patient loss prevention representative/caregiver as indicated: Confirmation of Payer with patient/family: Yes Payer Name: humana [place]: No Confirmation of Primary Care Physician: Confirmed [...] Health Services Care Services Provider Name: [facility] Dialysis Type: NA Durable Medical [...] alone and indep. Pt active with [facility]- liaison following for continued services. Pt uses walker/cane at baseline. Pt has insurance, PCP and able to obtain meds. Pt's friends help with transportation. No needs antic at discharge. Virginia Rehman RN Start PACC Note Home Health Referral Educated patient on Home Care and services available. Patient offered choice of available HHC and agreeable to SN/PT services with [facility]. Care [...] is noted as yes - consider a FLOOR REPRESENTATIVE evaluation once the patient returns home. START PATIENT REGISTRATION INFORMATION Order Information Order Signing Physician: Robert Vigil MD Service Ordered RN ?: Yes Service Ordered PT ?: Yes Service Ordered OT ?: No Service Ordered ST ?: No Service Ordered FLOOR REPRESENTATIVE?:No Service Ordered COLLAR PACKER?: No Following Physician: Jared Evans MD Following Physician Overseeing Physician: Jared Evans MD (Required for Residents only) Agreeable to Follow? Yes Date/Time of Call 04/04/24 11:36 AM, Spoke with: Patient is a DEB. Care Coordination Same Day SOC?: No Primary Care Physician: Jared Evans MD Primary Care Physician Primary Care Physician Address: [address] [place] [address] Visit Instructions: N/A Service Discharge Location Type: Home with Home Care Service Facility Name: N/A Service Floor Facility: N/A Service Room No: N/A Demographics Patient Last Name: Jose Alberto Patient First Name: Mel Language/Communication Barrier: none Service Address: [address] [place] [address] [facility] Service City: [place] Service ST: [place] Service ZIP: [address] Service Other phone numbers: Telephone Information: Emergency [...] Caregiver Phone Number: na Caregiver Notes: N/A [place]ogy List No END PATIENT REGISTRATION INFORMATION Pt [...] therapeutic aptt Patient is currently active with [facility]. The patients current certification period will on 05/18/24. The patient is currently receiving PT services through the agency. Soccer Coach to continue to follow. ADVANCED CARE PLANNING Mel Pop : 1940 Primary Care Physician: Jared Evans MD The patient and/or family/surrogate voluntarily agreed to participate in ACP services. Patient s cognitive capacity: intact Code Status: [ ] [FULL CODE - Continue all advanced life support: CPR,intubation,invasive procedures] [X] [DNR-CCA - DO NOT do CPR, intubation] [_] [DNR-SMALL ARMS ARTILLERY REPAIRER - Comfort care only] [_] DNR form [...] family/surrogate. Pratibha Avelar DO [facility] 04/04/2024, 5:40 AM The patient is Moderately Stable - Low risk of patient condition declining or worsening The patient's goals for the shift include met The clinical goals for the shift include met Over the shift, the patient did not make progress toward the following goals. Barriers to progression include . Recommendations to address these barriers include . documented in this encounter [facility] 04-13-2024 Note [facility] 04-13-2024 Hospital course Narrative Discharge Summary Mel Pop : 1940 ADMIT DATE: 04/03/2024 DISCHARGE DATE: 04/13/2024 PRIMARY CARE PHYSICIAN: Jared Evans VISIT STATUS: Admission CODE STATUS: DNR-CCA DISCHARGE DIAGNOSES: Principal Problem: Peripheral arterial disease (HCC) Bilateral lower extremity DVTs RLE thrombectomy HOSPITAL COURSE: 83-year-old woman with history of A-fib on Eliquis, tobacco use, hypertension, hyperlipidemia, asthma, hiatal hernia, GERD presented to [facility] on 04/03 with right leg pain, numbness, tingling causing difficulty ambulating. CTA of lower extremity showed severe atherosclerotic disease with bilateral superficial femoral artery occlusion and transferred to [facility]. She underwent venous thrombectomy with vascular surgery and was initiated on warfarin bridging with heparin. [facility] followed and managed bridging anticoagulation. Pt reported feeling improvement from day to day. Though she was concerned that being stuck in the hospital will debilitate her.Her INR was therapeutic on 04/13. [facility] recommended transition to Warfarin alternating 5mg/7.5mg dosing and close OP follow up for INR check. SIGNIFICANT DIAGNOSTIC STUDIES: BLE Duplex CONSULTANTS: Vascular surgery Pharmacy RECOMMENDED NEXT STEPS: Follow up with [facility] clinic and vascular DISCHARGE MEDICATIONS: Medication List [...] (5mg) on 04/15 Follow up with [facility] pharmacy for further dosing CONTINUE taking these medications albuterol 108 (90 Base) MCG/ACT inhaler ascorbic acid 500 MG tablet Commonly known as: Vitamin C lisinopril 5 MG tablet pantoprazole 40 MG EC tablet Commonly known as: ProtoNix Trelegy Ellipta 100-62.5-25 MCG/ACT aerosol powder Generic drug: Qscaqawdokp-Vwptynaxo-Mhhdye STOP taking these medications Eliquis 5 MG tablet Generic drug: apixaban Where to Get Your Medications These medications were sent to [facility] [address] [place], [place] [id number] Hours: Tuesday to Tuesday 10 am to 6 pm oxyCODONE 5 MG immediate release tablet warfarin 5 MG tablet DIET: Adult diet Regular ACTIVITY: No restriction. COMPLEXITY OF FOLLOW UP: [x] Moderate Complexity: follow up within 7-14 calendar days (13466) [] Severe Complexity: follow up within 7 calendar days (23504) FOLLOW UP TESTING, PENDING RESULTS OR REFERRALS AT TRANSITIONAL CARE VISIT: [] Yes [x] No PENDING STUDIES: none DISPOSITION: Home with Home Health Care FACILITY/HOME CARE AGENCY NAME: [facility] Follow up with Kristyn Blankenship MD [address] [place] [id number] Schedule an appointment as soon as possible [...] 04/13/2024, 2:20 PM documented in this encounter [facility] 04-13-2024 History of Present illness Narrative Images from the original note were not included. PHYSICAL THERAPY [facility] Treatment Note Name/MRN: Mel Pop ([id number]) Date of : 1940 Age: 83 y.o. [...] Minutes 13 (Gait) Christin Gu PT [facility] Anticoagulation Management Service ([facility]) Inpatient Warfarin Consult HPI: Mel Pop is a 83 y.o. female admitted on 04/03/2024 for Peripheral arterial disease (HCC). Past Medical History: Diagnosis Date Asthma Essential hypertension 03/07/2020 GERD (gastroesophageal reflux disease) Hiatal hernia Pure hypercholesterolemia 03/07/2020 Patient is newly referred to the [facility] clinic for warfarin management. Pt was [...] upon discharge. Patient is agreeable to [facility] follow up. If discharged today, recommend sending home with 5mg tablets with instructions to take 5mg Tuesday (if not already received in hospital), 7.5mg Tuesday, 5mg Tuesday, and will recheck INR Tuesday via home care. 4. Provided warfarin education. Marybeth Rahman RPh, PharmD [facility] Consult Service is available daily [phone] via [employer] Secure [email or web address]. If no response, please page [phone]. Hospitalist Progress Note 04/13/2024 Subjective: Admit Date: 04/03/2024 PCP: Jared Evans MD Room#: N4-461/[id number] B BRIEF HOSPITAL COURSE: 83-year-old woman with history of A-fib on Eliquis, tobacco use, hypertension, hyperlipidemia, asthma, hiatal hernia, GERD presented to [facility] on 04/03 with right leg pain, numbness, tingling causing difficulty ambulating. CTA of lower extremity showed severe atherosclerotic disease with bilateral superficial femoral artery occlusion and transferred to [facility]. She underwent venous thrombectomy with vascular surgery and was initiated on warfarin bridging with heparin. [facility] followed and managed bridging anticoagulation. Pt reported feeling improvement from day to day. Though she was concerned that being stuck in the hospital will debilitate her.Her INR was therapeutic on 04/13. [facility] recommended transition to Warfarin alternating 5mg/7.5mg dosing [...] person, place, and time. Medications: Scheduled PRN Ubefeiaagnn-Jizdkmebn-Wlqfki, 1 puff, Inhalation, Daily influenza, 0.5 mL, [...] Roldan MD Division of Hospitalist Medicine [facility] Hospitalist Progress Note 04/12/2024 Subjective: Admit Date: 04/03/2024 PCP: Jared Evans MD Room#: N4461/[id number] B BRIEF HOSPITAL COURSE: 83-year-old woman with history of A-fib on Eliquis, tobacco use, hypertension, hyperlipidemia, asthma, hiatal hernia, GERD presented to [facility] on 04/03 with right leg pain, numbness, tingling causing difficulty ambulating. CTA of lower extremity showed severe atherosclerotic disease with bilateral superficial femoral artery occlusion and transferred to [facility]. She underwent venous thrombectomy with vascular [...] person, place, and time. Medications: Scheduled PRN Dodeksjdrfc-Fsrbujnzr-Criivz, 1 puff, Inhalation, Daily influenza, 0.5 mL, [...] Jordin Roldan MD Division of Hospitalist Medicine [facility] Anticoagulation Management Service ([facility]) Inpatient Warfarin Consult HPI: Mel Pop is a 83 y.o. female admitted on 04/03/2024 for Peripheral arterial disease (HCC). Past Medical History: Diagnosis Date Asthma Essential hypertension 03/07/2020 GERD (gastroesophageal reflux disease) Hiatal hernia Pure hypercholesterolemia 03/07/2020 Patient is newly referred to the [facility] clinic for warfarin management. Pt was [...] PharmD [facility] Consult Service is available daily [phone] via [employer] Secure Chat. If no response, please page [phone]. Images from the original note were not included. 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[facility]) 06/16/2022 Cellulitis 05/18/2022 Nicotine use disorder 05/18/2022 Irritable bowel syndrome with diarrhea 03/07/2020 Microscopic hematuria 03/07/2020 Left retinal detachment 03/07/2020 Hyperglycemia 03/07/2020 Osteopenia of left femoral neck 03/07/2020 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 03/07/2020 Seasonal allergies 03/07/2020 Chronic renal insufficiency, stage III (moderate) ([facility]) 03/07/2020 Major depression, single episode, in complete remission ([facility]) 03/07/2020 Gastroesophageal reflux disease without esophagitis 03/07/2020 Essential hypertension 03/07/2020 Pure hypercholesterolemia 03/07/2020 Overweight 03/07/2020 Psoriasis 03/07/2020 History of cerebrovascular accident 03/07/2020 Atrial fibrillation (HCC) 03/07/2020 Chronic obstructive pulmonary disease ([facility]) 03/07/2020 Finger osteomyelitis, right (HCC) 03/06/2020 Medical [...] Responsibilities: Independent Receives Help From: None Active Diabetic Educator: Yes Prior Level of Function ADL Assistance: [...] Care supervision is transferred to a [facility] Therapy Services Occupational Therapist. Goals and/or treatment plan was established in collaboration with patient/family/other representatives. Hospitalist Progress Note 04/11/2024 Subjective: Admit Date: 04/03/2024 PCP: Jared Evans MD Room#: N4461/[id number] B BRIEF HOSPITAL COURSE: 83-year-old woman with history of A-fib on Eliquis, tobacco use, hypertension, hyperlipidemia, asthma, hiatal hernia, GERD presented to [facility] on 04/03 with right leg pain, numbness, tingling causing difficulty ambulating. CTA of lower extremity showed severe atherosclerotic disease with bilateral superficial femoral artery occlusion and transferred to [facility]. She underwent venous thrombectomy with vascular [...] person, place, and time. Medications: Scheduled PRN Rwgjnkngmhi-Ftozzbrob-Ksjgef, 1 puff, Inhalation, Daily influenza, 0.5 mL, [...] Jordin Roldan MD Division of Hospitalist Medicine [facility] Images from the original note were not included. 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[facility]) 06/16/2022 Cellulitis 05/18/2022 Nicotine use disorder 05/18/2022 Irritable bowel syndrome with diarrhea 03/07/2020 Microscopic hematuria 03/07/2020 Left retinal detachment 03/07/2020 Hyperglycemia 03/07/2020 Osteopenia of left femoral neck 03/07/2020 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 03/07/2020 Seasonal allergies 03/07/2020 Chronic renal insufficiency, stage III (moderate) ([facility]) 03/07/2020 Major depression, single episode, in complete remission ([facility]) 03/07/2020 Gastroesophageal reflux disease without esophagitis 03/07/2020 Essential hypertension 03/07/2020 Pure hypercholesterolemia 03/07/2020 Overweight 03/07/2020 Psoriasis 03/07/2020 History of cerebrovascular accident 03/07/2020 Atrial fibrillation ([facility]) 03/07/2020 Chronic obstructive pulmonary disease ([facility]) 03/07/2020 Finger osteomyelitis, right ([facility]) 03/06/2020 Medical Precautions: No active isolations Proper [...] Raw Score (No Stairs) : 19 [facility] Score: Walked 10 steps or more (i.e. [...] Care supervision is transferred to a [facility] Therapy Services Physical Therapist. Goals and/or treatment plan was established in collaboration with patient/family/other representatives. [facility] Anticoagulation Management Service ([facility]) Inpatient Warfarin Consult HPI: Mel Pop is a 83 y.o. female admitted on 04/03/2024 for Peripheral arterial disease (HCC). Past Medical History: Diagnosis Date Asthma Essential hypertension 03/07/2020 GERD (gastroesophageal reflux disease) Hiatal hernia Pure hypercholesterolemia 03/07/2020 Patient is newly referred to the [facility] clinic for warfarin management. Pt was [...] PharmD [facility] Consult Service is available daily [phone] via [employer] Secure [email or web address]. If no response, please page [phone]. Hospitalist Progress Note 04/10/2024 Subjective: Admit Date: 04/03/2024 PCP: Jared Evans MD Room#: N4-461/[id number] B BRIEF HOSPITAL COURSE: 83-year-old woman with history of A-fib on Eliquis, tobacco use, hypertension, hyperlipidemia, asthma, hiatal hernia, GERD presented to [facility] on 04/03 with right leg pain, numbness, tingling causing difficulty ambulating. CTA of lower extremity showed severe atherosclerotic disease with bilateral superficial femoral artery occlusion and transferred to [facility]. She underwent venous thrombectomy with vascular [...] Miguel Castillo/ Fidel Mobile Relation: Child Jordin Roldna MD Division of Hospitalist Medicine [facility] Nutrition update completed. Chart reviewed. Patient to be monitored and followed by the diet repair technician. FADI Farrar [facility] Anticoagulation Management Service ([facility]) Inpatient Warfarin Consult HPI: Mel Pop is a 83 y.o. female admitted on 04/03/2024 for Peripheral arterial disease (HCC). Past Medical History: Diagnosis Date Asthma Essential hypertension 03/07/2020 GERD (gastroesophageal reflux disease) Hiatal hernia Pure hypercholesterolemia 03/07/2020 Patient is newly referred to the [facility] clinic for warfarin management. Pt was [...] PharmD [facility] Consult Service is available daily [phone] via [employer]. If no response, please page [phone]. Hospitalist Progress Note 04/09/2024 Assessment/Plan: Data: (CAT1) [...] asthma, hiatal hernia, GERD who presented to [place] 04/03 with right leg pain, numbness, tingling causing difficulty ambulating. CTA of LE, showing severe LE atherosclerotic disease with bilateral superficial femoral artery occlusion, and was transferred to [facility] for admission. Interval History: Mild shortness [...] Robert Vigil MD Division of Hospitalist Medicine [facility] Anticoagulation Management Service ([facility]) Inpatient Warfarin Consult HPI: Mel F Pop is a 83 y.o. female admitted on 04/03/2024 for Peripheral arterial disease (HCC). Past Medical History: Diagnosis Date Asthma Essential hypertension 03/07/2020 GERD (gastroesophageal reflux disease) Hiatal hernia Pure hypercholesterolemia 03/07/2020 Patient is newly referred to the [facility] clinic for warfarin management. Pt was [...] determine if pt is agreeable to [facility] follow-up. 4. Will provide warfarin education. Marybeth Rahman RPh, PharmD [facility] Consult Service is available daily [phone] via [employer] Secure Chat. If no response, please page [phone]. Hospitalist Progress Note 04/08/2024 Assessment/Plan: Data: (CAT1) [...] asthma, hiatal hernia, GERD who presented to [place] 04/03 with right leg pain, numbness, tingling causing difficulty ambulating. CTA of LE, showing severe LE atherosclerotic disease with bilateral superficial femoral artery occlusion, and was transferred to [facility] for admission. Interval History: Pain continues [...] Robert Vigil MD Division of Hospitalist Medicine [facility] Anticoagulation Management Service ([facility]) Inpatient Warfarin Consult HPI: Mel Pop is a 83 y.o. female admitted on 04/03/2024 for Peripheral arterial disease (HCC). Past Medical History: Diagnosis Date Asthma Essential hypertension 03/07/2020 GERD (gastroesophageal reflux disease) Hiatal hernia Pure hypercholesterolemia 03/07/2020 Patient is newly referred to the [facility] clinic for warfarin management. Pt was [...] PharmD [facility] Consult Service is available daily [phone] via [employer] Secure Chat. If no response, please page [phone]. Hospitalist Progress Note 04/07/2024 Assessment/Plan: Data: (CAT1) [...] Anticipate DC pending clinical improvement and pain., Coating Manager recommendations, Coumadin bridge with heparin Total time [...] asthma, hiatal hernia, GERD who presented to [place] 04/03 with right leg pain, numbness, tingling causing difficulty ambulating. CTA of LE, showing severe LE atherosclerotic disease with bilateral superficial femoral artery occlusion, and was transferred to [facility] for admission. Interval History: Pain improved [...] Robert Vigil MD Division of Hospitalist Medicine [facility] Anticoagulation Management Service ([facility]) Inpatient Warfarin Consult HPI: Mel Pop is a 83 y.o. female admitted on 04/03/2024 for Peripheral arterial disease (HCC). Past Medical History: Diagnosis Date Asthma Essential hypertension 03/07/2020 GERD (gastroesophageal reflux disease) Hiatal hernia Pure hypercholesterolemia 03/07/2020 Patient is newly referred to the [facility] clinic for warfarin management. Pt was [...] PharmD [facility] Consult Service is available daily [phone] via [employer] Secure [email or web address]. If no response, please page [phone]. Department of General Surgery Daily Progress Note [...] George Sarah MD PGY5, General Surgery Pager #[phone] CDI Query Response: Acute thrombus within the [...] Anticipate DC pending clinical improvement and pain., Coating Manager recommendations, Coumadin bridge with heparin Total time [...] asthma, hiatal hernia, GERD who presented to [place] 04/03 with right leg pain, numbness, tingling causing difficulty ambulating. CTA of LE, showing severe LE atherosclerotic disease with bilateral superficial femoral artery occlusion, and was transferred to [facility] for admission. Interval History: Has significant [...] Robert Vigil MD Division of Hospitalist Medicine [facility] Department of General Surgery Daily [...] have been answered to their satisfaction. [facility] Anticoagulation Management Service ([facility]) Inpatient Warfarin Consult HPI: Mel Pop is a 83 y.o. female admitted on 04/03/2024 for Peripheral arterial disease (HCC). Past Medical History: Diagnosis Date Asthma Essential hypertension 03/07/2020 GERD (gastroesophageal reflux disease) Hiatal hernia Pure hypercholesterolemia 03/07/2020 Patient is newly referred to the [facility] clinic for warfarin management. Pt was [...] PharmD G[facility]ELLA Consult Service is available daily [phone] via [employer] Secure [email or web address]. If no response, please page [phone]. Hospitalist Progress Note 04/05/2024 Assessment/Plan: Data: (CAT1) [...] Discharge Disposition: Anticipate DC pending clinical improvement, storage consultant recommendations Total time spent (which include [...] asthma, hiatal hernia, GERD who presented to [place] 04/03 with right leg pain, numbness, tingling causing difficulty ambulating. CTA of LE, showing severe LE atherosclerotic disease with bilateral superficial femoral artery occlusion, and was transferred to [facility] for admission. Interval History: Had more [...] José Miguel Castillo/ Fidel Mobile Relation: Child Rboert Vigil MD Division of Hospitalist Medicine [facility] Nutrition rescreen completed. Chart reviewed. Patient to be monitored and followed by the diet repair technician. FADI Harmon [facility] Anticoagulation Management Service ([facility]) Inpatient Warfarin Consult HPI: Mel Pop is a 83 y.o. female admitted on 04/03/2024 for Peripheral arterial disease (HCC). Past Medical History: Diagnosis Date Asthma Essential hypertension 03/07/2020 GERD (gastroesophageal reflux disease) Hiatal hernia Pure hypercholesterolemia 03/07/2020 Patient is newly referred to the [facility] clinic for warfarin management. Pt was [...] PharmD GABRIELLA Consult Service is available daily [phone] via [employer] Secure Chat. If no response, please page [phone]. Department of General Surgery Daily Progress Note [...] Naik MD General Surgery PGY-4 Pager # [phone] Associated attestation - Kristyn Blankenship MD - [...] at midnight for possible thrombectomy tomorrow. [facility] Anticoagulation Management Service ([facility]) Inpatient Warfarin Consult HPI: Mel Pop is a 83 y.o. female admitted on 04/03/2024 for Peripheral arterial disease (HCC). Past Medical History: Diagnosis Date Asthma Essential hypertension 03/07/2020 GERD (gastroesophageal reflux disease) Hiatal hernia Pure hypercholesterolemia 03/07/2020 Patient is newly referred to the [facility] clinic for warfarin management. Pt was [...] determine if pt is agreeable to [facility] follow-up 4. Will provide warfarin education. Thank you for this consult Marybeth Rahman RPh, PharmD [facility]A Consult Service is available daily [phone] via [employer] Secure Chat. If no response, please page [phone]. Nonbillable encounter. Patient was seen by provider earlier today Patient is an 83-year-old female with history of A-fib on Eliquis, significant tobacco use, HTN, HLD, asthma, hiatal hernia, GERD who presented to [place] 04/03 with right leg pain, numbness, tingling causing difficulty ambulating. CTA of LE, showing severe LE atherosclerotic disease with bilateral superficial femoral artery occlusion, and was transferred to [facility] for admission. Severe bilateral LE atherosclerotic [...] Eliquis -Smoking cessation documented in this encounter [facility] 04-13-2024 Note Formatting of this n ote is different from the original. Images from the original note were not included. Care Management Progress Note INR 2.3 today. Hep drip continued, plan to DC to [facility] today. Plan to have PT seen patient today per her request. Patient is active with [facility]. Await treatment plan and clinical progress. talent program manager will continue to follow for transitional [...] vasc consult 04/06/2024 Bernie Cutler APRN - SOAP TENDER 04/04/2024 4:04 AM 04/06/2024 Bernie Cutler APRN - SOAP TENDER 04/03/2024 11:17 PM Length of Stay (Days): 10 GMLOS: 4 [facility] 04-13-2024 Note Formatting of this n ote is different from the original. Images from the original note were not included. Care Management Progress Note INR 2.3 today. Hep drip continued, plan to DC to [facility] today. Plan to have PT seen patient today per her request. Patient is active with [facility]. Await treatment plan and clinical progress. talent program manager will continue to follow for transitional [...] vasc consult 04/06/2024 Bernie Cutler APRN - SOAP TENDER 04/04/2024 4:04 AM 04/06/2024 Bernie Cutler APRN - SOAP TENDER 04/03/2024 11:17 PM Length of Stay (Days): 10 GMLOS: 4 [facility] 04-13-2024 Plan of care note The patient [...] plan, medications, and discharge instructions Outcome: Progressing [facility] 04-12-2024 Plan of care note Problem: Pain [...] patient condition declining or worsening [facility] 04-12-2024 Note Formatting of this n ote is different from the original. Images from the original note were not included. Care Management Progress Note Patent currently still on Hep Drip, INR 1.9. Will convert to oral when appropriate. Pt active with [facility]- will continue services at discharge. Await treatment plan and clinical progress. talent program manager will continue to follow for transitional care needs for discharge planning. Discharge Milestones and Delays Expected date/time: 04/13/2024 Expected discharge disposition: Home Health Services Discharge Milestones Place discharge order Complete med reconciliation Case mgmt discharge readiness Clinical Stability Diagnostic Workup Coating Manager Recommendations Facility Choice Selection Imaging Results PT [...] lower US, vasc consult 04/06/2024 Bernie Cutler, SUBWAY CAR REPAIRER - SOAP TENDER 04/04/2024 4:04 AM 04/06/2024 Bernie Cutler SUBWAY CAR REPAIRER - SOAP TENDER 04/03/2024 11:17 PM Length of Stay (Days): 9 GMLOS: 4 [facility] 04-12-2024 Note Formatting of this n ote is different from the original. Images from the original note were not included. Care Management Progress Note Patent currently still on Hep Drip, INR 1.9. Will convert to oral when appropriate. Pt active with [facility]- will continue services at discharge. Await treatment plan and clinical progress. talent program manager will continue to follow for transitional care needs for discharge planning. Discharge Milestones and Delays Expected date/time: 04/13/2024 Expected discharge disposition: Home Health Services Discharge Milestones Place discharge order Complete med reconciliation Case mgmt discharge readiness Clinical Stability Diagnostic Workup Coating Manager Recommendations Facility Choice Selection Imaging Results PT [...] lower US, vasc consult 04/06/2024 Bernie Cutler, SUBWAY CAR REPAIRER - SOAP TENDER 04/04/2024 4:04 AM 04/06/2024 Bernie Cutler APRN - SOAP TENDER 04/03/2024 11:17 PM Length of Stay (Days): 9 GMLOS: 4 T [facility] 04-12-2024 Plan of care note The [...] medications, and discharge instructions Outcome: Progressing T [facility] 04-11-2024 Note Formatting of this n ote is different from the original. Images from the original note were not included. Care Management Progress Note Patent currently still on Hep Drip, INR 1.9. Will convert to oral when appropriate. Pt active with [facility]- will continue services at discharge. Await treatment plan and clinical progress. talent program manager will continue to follow for transitional [...] hep gtt, poss thrombectomy tomorrow 04/06/2024 Virginia Rheman RN 04/04/2024 8:48 AM hep gtt, oliva lower US, vasc consult 04/06/2024 Bernie Cutler APRN - SOAP TENDER 04/04/2024 4:04 AM 04/06/2024 Bernie Cutler APRN - SOAP TENDER 04/03/2024 11:17 PM Length of Stay (Days): 8 GMLOS: 4 [facility] 04-11-2024 Note Formatting of this n ote is different from the original. Images from the original note were not included. Care Management Progress Note Patent currently still on Hep Drip, INR 1.9. Will convert to oral when appropriate. Pt active with [facility]- will continue services at discharge. Await treatment plan and clinical progress. talent program manager will continue to follow for transitional [...] vasc consult 04/06/2024 Bernie Cutler APRN - SOAP TENDER 04/04/2024 4:04 AM 04/06/2024 Bernie Cutler APRN - SOAP TENDER 04/03/2024 11:17 PM Length of Stay (Days): 8 GMLOS: 4 [facility] 04-11-2024 Plan of care note Problem: Pain [...] patient condition declining or worsening [facility] 04-11-2024 Plan of care note The patient [...] or baseline comfort level Outcome: Progressing T [facility] 04-10-2024 Plan of care note Problem: [...] patient condition declining or worsening [facility] 04-10-2024 Note Formatting of this n ote is different from the original. Images from the original note were not included. Care Management Progress Note Patient currently still on Heparin Drip, INR 1.6 today.Will convert to oral when appropriate. Pt active with [facility]- will continue services at discharge. Await treatment plan and clinical progress. talent program manager will continue to follow for transitional care needs for discharge planning. Discharge Milestones and Delays Expected date/time: 04/11/2024 Expected discharge disposition: Home or Self Care Discharge Milestones Place discharge order Complete med reconciliation Case mgmt discharge readiness Clinical Stability Diagnostic Workup Coating Manager Recommendations Facility Choice Selection Imaging Results Patient [...] vasc consult 04/06/2024 Bernie Cutler APRN - SOAP TENDER 04/04/2024 4:04 AM 04/06/2024 Bernie Cutler APRN - SOAP TENDER 04/03/2024 11:17 PM Length of Stay (Days): 7 GMLOS: 4 [facility] 04-10-2024 Note Formatting of this n ote is different from the original. Images from the original note were not included. Care Management Progress Note Patient currently still on Heparin Drip, INR 1.6 today.Will convert to oral when appropriate. Pt active with [facility]- will continue services at discharge. Await treatment plan and clinical progress. talent program manager will continue to follow for transitional care needs for discharge planning. Discharge Milestones and Delays Expected date/time: 04/11/2024 Expected discharge disposition: Home or Self Care Discharge Milestones Place discharge order Complete med reconciliation Case mgmt discharge readiness Clinical Stability Diagnostic Workup Coating Manager Recommendations Facility Choice Selection Imaging Results Patient [...] Length of Stay (Days): 7 GMLOS: 4 [facility] 04-09-2024 Note Formatting of this n ote is different from the original. Images from the original note were not included. Care Management Progress Note Remains on heparin gtt while transitioning to coumadin. Consult Hemology. Pt active with [facility]- will continue services at discharge. Await treatment plan and clinical progress. talent program manager will continue to follow for transitional care needs for discharge planning. Discharge Milestones and Delays Expected date/time: 04/10/2024 Expected discharge disposition: Home or Self Care Discharge Milestones Place discharge order Complete med reconciliation Case mgmt discharge readiness Clinical Stability Diagnostic Workup Coating Manager Recommendations Facility Choice Selection Imaging Results Patient [...] Length of Stay (Days): 6 GMLOS: 3.1 [facility] 04-09-2024 Note Formatting of this n ote is different from the original. Images from the original note were not included. Care Management Progress Note Remains on heparin gtt while transitioning to coumadin. Consult Hemology. Pt active with [facility]- will continue services at discharge. Await treatment plan and clinical progress. talent program manager will continue to follow for transitional care needs for discharge planning. Discharge Milestones and Delays Expected date/time: 04/10/2024 Expected discharge disposition: Home or Self Care Discharge Milestones Place discharge order Complete med reconciliation Case mgmt discharge readiness Clinical Stability Diagnostic Workup Coating Manager Recommendations Facility Choice Selection Imaging Results Patient [...] vasc consult 04/06/2024 Bernie Cutler APRN - SOAP TENDER 04/04/2024 4:04 AM 04/06/2024 Bernie Cutler APRN - SOAP TENDER 04/03/2024 11:17 PM Length of Stay (Days): 6 GMLOS: 3.1 [facility] 04-08-2024 Plan of care note Progressing T [facility] 04-07-2024 Plan of care note The [...] or baseline comfort level Outcome: Progressing . [facility] 04-07-2024 Hospital Discharge instructions Lolita Sarah MD [...] RPh - 04/13/2024 1:07 PM EDT [facility] Clinic will monitor your warfarin after you go home. [facility] Phone number: [phone]. 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 Seasonal allergies [...] 8 oz) Mental Status: {HECTOR Patient Mental Status:10559} IV Access: {HECTOR IV Access:58124} Nursing Mobility/ADLs: Walking {MAHESH ADL:90219::Independent} Transfer {MAHESH ADL:62994::Independent} Bathing {MAHESH ADL:97325::Independent} Dressing {MAHESH ADL:15922::Independent} Toileting {MAHESH ADL:46686::Independent} Feeding {MAHESH ADL:93846::Independent} Reversal Print Inspector {MAHESH ADL:52094::Independent} Med Delivery {yes/no:88689} Wound Care Documentation and Therapy: Elimination: Continence: Bowel: {yes/no:09477} Bladder: {yes/no:98238} Urinary Catheter: {HECTOR Urinary Catheter:55357} Colostomy/Ileostomy/Ileal Conduit: {YES / NO:} Date of Last BM: Intake/Output Summary (Last 24 hours) at 04/04/2024 1135 Last data filed at 04/03/20242056 Gross per 24 hour Intake 500 ml Output -- Net 500 ml I/O last 3 completed shifts: In: 500 (6.9 mL/kg) [IV Piggyback:500] Out: - (0 mL/kg) Weight: 72.3 kg Safety Concerns: {HECTOR Safety Concerns:00740} Impairments/Disabilities: {HECTOR Impairments/Disabilities:40997} Nutrition Therapy: Current Nutrition Therapy: {HECTOR Diet List:26445} Routes of Feeding: {routes of feedin} Liquids: {liquid consistency:56535} Daily Fluid Restriction: {daily fluid restriction:13110} Last Modified Barium Swallow with Video (Video Swallowing Test): {done not done:36747} Treatments at the Time of Hospital Discharge: Respiratory Treatments: Oxygen Therapy: {Therapy; copd oxygen:09271} Ventilator: {HECTOR Ventilator:17577} Rehab Therapies: {GEN THERAPY DISCIPLINE SCAL:4449267} Weight Bearing Status/Restrictions: {POD WEIGHT BEARIN} Other Medical Equipment (for information only, NOT a DME order): {Assistive Devices DME:97006} Other Treatments: Patient's personal belongings (please select all that are sent with patient): {HECTOR Patient Belongings:55266} RN SIGNATURE: {E-signature:93881} CASE MANAGEMENT/SOCIAL WORK SECTION Inpatient Status Date: Discharging to Facility/ Agency Name: [facility] Address: [address] [place] [address] Dialysis Facility (if applicable) Name: Address: Dialysis Schedule: Phone: Fax: Easement Worker/Comic Illustrator signature: {E-signature:81342} PHYSICIAN SECTION Name: Mel Pop Prognosis: {Rehab Prognosis:28648} Condition at Discharge: {Patient Condition:92897} Rehab Potential (if transferring to Rehab): {Rehab Prognosis:58611} Recommended Labs or Other Treatments After Discharge: The individual is being admitted to a nursing facility directly from an [facility] or a unit of a [facility] that is not operated by or licensed by [facility] under section 5119.14 or [...] and that she requires {HECTOR Level of Care:05336} for {greater less than:13087} 30 days. Update Admission H&P: {HECTOR Changes in H&P:72939} PHYSICIAN SIGNATURE: {E-signature:90273} documented in this encounter [facility] 04-07-2024 Nurse Note NO changes to heparin infusion at this time. [facility] 04-06-2024 Note Formatting of this n ote is different from the original. Images from the original note were not included. Care Management Progress Note Pt s/p thrombectomy this am with vascular. Remains on heparin gtt while transitioning to coumadin. Pt active with [facility]- will continue services at discharge. Discharge [...] Stay (Days): 3 GMLOS: 3.1 [facility] 04-06-2024 Note Formatting of this n ote is different from the original. Images from the original note were not included. Care Management Progress Note Pt s/p thrombectomy this am with vascular. Remains on heparin gtt while transitioning to coumadin. Pt active with [facility]- will continue services at [...] vasc consult 04/06/2024 Bernie Cutler APRN - SOAP TENDER 04/04/2024 4:04 AM 04/06/2024 Bernie Cutler APRN - SHAMIKA 04/03/2024 11:17 PM Length of Stay (Days): 3 GMLOS: 3.1 [facility] 04-06-2024 Note Formatting of this n ote might be different from the original. Patient report called to 4N RN and denies any further questions. Patient resting comfortably and no signs of distress. Per resident patient to lay flat for 2 hours and restart heparin GTT at 1215. Transport notified. [facility] 04-06-2024 Note Formatting of this n ote might be different from the original. Patient report called to 4N RN and denies any further questions. Patient resting comfortably and no signs of distress. Per resident patient to lay flat for 2 hours and restart heparin GTT at 1215. Transport notified. [facility] 04-06-2024 Note Formatting of this n ote might be different from the original. SW assisted patient with completion of Health Care Power of Marketing Communications Coordinator. One copy placed in patient chart, one copy sent to medical records and two copies given to patient. Requested by patient, while at bedside this SW spoke to patient's son via patients phone to explain that HCPOA was being completed by patient. Patients son José Miguel Castillo ([phone]) agreed to be this patients agent on the HCPOA and confirmed understanding. [employer] [facility] 04-06-2024 Note Formatting of this n ote might be different from the original. SW assisted patient with completion of Health Care Power of Marketing Communications Coordinator. One copy placed in patient chart, one copy sent to medical records and two copies given to patient. Requested by patient, while at bedside this SW spoke to patient's son via patients phone to explain that HCPOA was being completed by patient. Patients danny Castillo ([phone]) agreed to be this patients agent on the HCPOA and confirmed understanding. [facility] 04-06-2024 Note Formatting of this n ote [...] technique was used to place a 5 Senegalese sheath. A Bentson wire was able to be advanced in the inferior vena cava without difficulty. The 5 Senegalese sheath was then upsized to a 16 Senegalese sheath and the penumbra flash suction thrombectomy device was prepared per tallier's instructions. The patient was also given 5000 units of heparin for systemic anticoagulation at this time. The Penumbra device was then inserted through the 16 Senegalese sheath and a suction thrombectomy was performed [...] device was removed as was the 16 Senegalese sheath and an 0 silk suture was [...] Vascular Surgery [facility] 04-06-2024 Note Formatting of this n ote is different from the original. Date: 04/06/2024 Location: [facility] OR Name: Mel Pop, : 1940, Diagnosis Pre-op Diagnosis * Right leg DVT (HCC) [I82.401] Post-op Diagnosis * Right leg DVT (HCC) [I82.401] Procedures RIGHT LOWER EXTREMITY VENOUS MECHANICAL THROMBECTOMY 04049 - [place] PRQ TRANSLUMINAL MECHANICAL THROMBECTOMY VEIN Surgeons * Kristyn Blankenship - Primary Procedure Summary Anesthesia: General ASA: III Estimated Blood Loss: 300 mL Drains: * None in log * Staff: Hepatologist: Negrita Elizabeth RN; Amira Burton RN Scrub [...] this procedure. [facility] 04-06-2024 Note Formatting of this n ote [...] technique was used to place a 5 Senegalese sheath. A Bentson wire was able to be advanced in the inferior vena cava without difficulty. The 5 Senegalese sheath was then upsized to a 16 Senegalese sheath and the penumbra flash suction thrombectomy device was prepared per tallier's instructions. The patient was also given 5000 units of heparin for systemic anticoagulation at this time. The Penumbra device was then inserted through the 16 Senegalese sheath and a suction thrombectomy was performed [...] device was removed as was the 16 Senegalese sheath and an 0 silk suture was [...] Vascular Surgery [facility] 04-06-2024 Note Formatting of this n ote is different from the original. Date: 04/06/2024 Location: [facility] OR Name: Mel Pop, : 1940, Diagnosis Pre-op Diagnosis * Right leg DVT (HCC) [I82.401] Post-op Diagnosis * Right leg DVT (HCC) [I82.401] Procedures RIGHT LOWER EXTREMITY VENOUS MECHANICAL THROMBECTOMY 20460 - [place] PRQ TRANSLUMINAL MECHANICAL THROMBECTOMY VEIN Surgeons * Kristyn Blankenship - Primary Procedure Summary Anesthesia: General ASA: III Estimated Blood Loss: 300 mL Drains: * None in log * Staff: Hepatologist: Negrita Elizabeth RN; Amira Burton RN Scrub [...] not indicated for this procedure. [facility] 04-06-2024 Note Formatting of this n ote might be different from the original. Dr Blankenship at bedside. She called family to update them on procedure time change [facility] 04-06-2024 Note Formatting of this n ote might be different from the original. Dr Blankenship at bedside. She called family to update them on procedure time change [facility] 04-06-[address] Blankenship at bedside. She called family to update them on procedure time change [facility] 04-05-2024 Note Formatting of this n ote is different from the original. Images from the original note were not included. Care Management Progress Note Vascular following with noted plan for possible thrombectomy tomorrow. Remains on heparin gtt while transitioning to coumadin per oncology recommendation. Pt from home alone- indep and active with [facility]- will return. Discharge Milestones and [...] Length of Stay (Days): 2 GMLOS: 3.1 [facility] 04-05-2024 Note Formatting of this n ote is different from the original. Images from the original note were not included. Care Management Progress Note Vascular following with noted plan for possible thrombectomy tomorrow. Remains on heparin gtt while transitioning to coumadin per oncology recommendation. Pt from home alone- indep and active with [facility]- will return. Discharge Milestones and [...] vasc consult 04/06/2024 Bernie Cutler APRN - SOAP TENDER 04/04/2024 4:04 AM 04/06/2024 Bernie Cutler APRN - SOAP TENDER 04/03/2024 11:17 PM Length of Stay (Days): 2 GMLOS: 3.1 [facility] 04-05-2024 Plan of care note The patient is Moderately Stable - Low risk of patient condition declining or worsening The patient's goals for the shift include met The clinical goals for the shift include met [facility] 04-04-2024 Consult note Formatting of th is note is different from the original. Images from the original note were not included. [facility] Hematology Oncology Inpatient Consultation [facility] Mel Pop : 1940(83 y.o.) [...] afib, hypertension, and GERD who presented to [facility] for right lower extremity [...] trifurcation vessels. Vascular surgery recommended transfer to [facility]. PVR and BLE US results pending [...] called her listed contacts (her friend and lnuzlgya-qf-ram however they do not manage her pill [...] eliquis. I have left a voicemail with [facility] pharmacy in [place] to see if the Eliquis is being [...] min Stress: No Stress Concern Present (04/04/2024) [place] [employer] - Occupational Stress Questionnaire Feeling of Stress : Not at all Social Connections: Moderately Isolated (04/04/2024) Social Connection and Isolation Panel [NHANES] Frequency of Communication with Friends and Family: More than three times a week Frequency of Social Gatherings with Friends and Family: More than three times a week Attends Scientologist Services: 1 to 4 times per year [...] 04/03/2024 [facility] Name: [facility]EL POP : 1940 [id number] Exam Date/Time: 04/03/2024 21:06 Procedure: CT HEAD [...] completing clinical documentation as well as with sxsf-ki-swyj patient care, performing a medically appropriate examination, [...] well as answering questions. Andre Patel MD [employer] Work Phone: 04-04-2024 Consult note Formatting of th is note is different from the original. Images from the original note were not included. [facility] Hematology Oncology Inpatient Consultation [facility] Mel Pop : 1940(83 y.o.) [...] afib, hypertension, and GERD who presented to [facility] for right lower extremity [...] trifurcation vessels. Vascular surgery recommended transfer to [facility]. PVR and BLE US results pending [...] called her listed contacts (her friend and irdprkff-fy-zbw however they do not manage her pill [...] left a voicemail with [facility] in [place] to see if the Eliquis is being [...] min Stress: No Stress Concern Present (04/04/2024) [place] [employer] - Occupational Stress Questionnaire Feeling of Stress : Not at all Social Connections: Moderately Isolated (04/04/2024) Social Connection and Isolation Panel [NHANES] Frequency of Communication with Friends and Family: More than three times a week Frequency of Social Gatherings with Friends and Family: More than three times a week Attends Scientologist Services: 1 to 4 times per year [...] wo Result Date: 04/03/2024 Patient Name: MEL OPP : 1940 [id number] Exam Date/Time: 04/03/2024 21:14 Procedure: CTA AORTA [...] : 1940 [facility]#: [id number] Exam Date/Time: 04/03/2024 21:06 Procedure: CT HEAD [...] completing clinical documentation as well as with wlkx-vo-qjka patient care, performing a medically appropriate examination, [...] Lolita Sarah MD PGY5, General Surgery Pager #[phone] Past Medical History: Diagnosis Date Asthma Essential [...] min Stress: No Stress Concern Present (04/04/2024) [place] [employer] - Occupational Stress Questionnaire Feeling of Stress : Not at all Social Connections: Moderately Isolated (04/04/2024) Social Connection and Isolation Panel [NHANES] Frequency of Communication with Friends and Family: More than three times a week Frequency of Social Gatherings with Friends and Family: More than three times a week Attends Scientologist Services: 1 to 4 times per year [...] : 1940 [facility]#: [id number] Exam Date/Time: 04/03/2024 21:14 Procedure: CTA AORTA [...] evidence of phlegmasia. Heparin gtt initiated at [facility] prior to transfer and continued here. She notes missed doses of her Eliquis. Recommend compression and elevation of the right lower extremity. Can consider mechanical thrombectomy however given patient's age, this may be more risk than of benefit. Will continue to monitor for symptom improvement on anticoagulation alone. documented in this encounter [facility] 04-04-2024 Note Formatting of this n ote might be different from the original. Care Managment Initial Assessment Date: 04/04/2024 Patient Name: Mel Pop : 1940 Patient Information Source of Information: Patient Cognition/Language: WFL - Within Functional Limits Permission given to speak with patient loss prevention representative/caregiver as indicated: Confirmation of Payer with [...] alone and indep. [facility]- liaison following for continued services. Pt uses walker/cane at baseline. Pt has insurance, PCP and able to obtain meds. Pt's friends help with transportation. No needs antic at discharge. Virginia Rehman RN [facility] 04-04-2024 Note Formatting of this n ote might be different from the original. Care Managment Initial Assessment Date: 04/04/2024 Patient Name: Mel Pop : 1940 Patient Information Source of Information: Patient Cognition/Language: WFL - Within Functional Limits Permission given to speak with patient loss prevention representative/caregiver as indicated: Confirmation of Payer with patient/family: Yes Payer Name: rey [place]: No Confirmation of Primary Care Physician: Confirmed [...] Health Services Care Services Provider Name: inna [facility] Dialysis Type: NA Durable Medical Equipment: [...] needs antic at discharge. Virginia Rehman RN [facility] 04-04-2024 Note Formatting of this n ote is different from the original. Start PACC Note Home Health Referral Educated patient on Home Care and services available. Patient offered choice of available HHC and agreeable to SN/PT services with [facility] at Home - Home Care. Care [...] is noted as yes - consider a FLOOR REPRESENTATIVE evaluation once the patient returns home. START PATIENT REGISTRATION INFORMATION Order Information Order Signing Physician: Robert Vigil MD Service Ordered RN ?: Yes Service Ordered PT ?: Yes Service Ordered OT ?: No Service Ordered ST ?: No Service Ordered FLOOR REPRESENTATIVE?:No Service Ordered COLLAR PACKER?: No Following Physician: Jared Evans MD Following Physician Overseeing Physician: Jared Evans MD (Required for Residents only) Agreeable to Follow? Yes Date/Time of Call 04/04/24 11:36 AM, Spoke with: Patient is a DEB. Care Coordination Same Day SOC?: No Primary Care Physician: Jared Evans MD Primary Care Physician Primary Care Physician Address: [address] [place] [id number] Visit Instructions: N/A Service Discharge Location Type: Home with Home Care Service Facility Name: N/A Service Floor Facility: N/A Service Room No: N/A Demographics Patient Last Name: Jose Alberto Patient First Name: Mel Language/Communication Barrier: none Service Address: [address] [place] [address] Dr Scar Veliz Service City: [place] Service ST: [place] Service ZIP: [address] Service Other phone numbers: Telephone Information: Emergency [...] Caregiver Phone Number: na Caregiver Notes: N/A [employer] List No END PATIENT REGISTRATION INFORMATION Pt [...] Center / N4-461/N4-461 B End PACC Note [facility] 04-04-2024 Note Formatting of this n ote is different from the original. Start PACC Note Home Health Referral Educated patient on Home Care and services available. Patient offered choice of available HHC and agreeable to SN/PT services with [facility]. Care Types: [...] is noted as yes - consider a FLOOR REPRESENTATIVE evaluation once the patient returns home. START PATIENT REGISTRATION INFORMATION Order Information Order Signing Physician: Robert Vigil MD Service Ordered RN ?: Yes Service Ordered PT ?: Yes Service Ordered OT ?: No Service Ordered ST ?: No Service Ordered FLOOR REPRESENTATIVE?:No Service Ordered COLLAR PACKER?: No Following Physician: Jared Evans MD Following Physician Overseeing Physician: Jared Evans MD (Required for Residents only) Agreeable to Follow? Yes Date/Time of Call 04/04/24 11:36 AM, Spoke with: Patient is a DEB. Care Coordination Same Day SOC?: No Primary Care Physician: Jared Evans MD Primary Care Physician Primary Care Physician Address: [address] [place] [address] / [facility] [address] Visit Instructions: N/A Service Discharge Location Type: Home with Home Care Service Facility Name: N/A Service Floor Facility: N/A Service Room No: N/A Demographics Patient Last Name: Jose Alberto Patient First Name: Mel Language/Communication Barrier: none Service Address: [address] Service City: [place] Service ST: [place] Service ZIP: [address] Service Other phone numbers: Telephone Information: Emergency [...] Caregiver Phone Number: na Caregiver Notes: N/A [employer] List No END PATIENT REGISTRATION INFORMATION [...] Center / N4-461/N4-461 B End PACC Note [facility] 04-04-2024 Plan of care note The patient is Moderately Stable - Low risk of patient condition declining or worsening The patient's goals for the shift include safety The clinical goals for the shift include therapeutic aptt [facility] 04-04-2024 Note Formatting of this n ote might be different from the original. Patient is currently active with [facility]. The patients current certification period will on 05/18/24. The patient is currently receiving PT services through the agency. Soccer Coach to continue to follow. [facility] 04-04-2024 Note Formatting of this n ote might be different from the original. Patient is currently active with [facility]. The patients current certification period will on 05/18/24. The patient is currently receiving PT services through the agency. Soccer Coach to continue to follow. [facility] 04-04-2024 Consult note Associated Order (s): IP [...] Lolita Sarah MD PGY5, General Surgery Pager #[phone] Past Medical History: Diagnosis Date Asthma Essential [...] min Stress: No Stress Concern Present (04/04/2024) [place] [employer] - Occupational Stress Questionnaire Feeling of Stress : Not at all Social Connections: Moderately Isolated (04/04/2024) Social Connection and Isolation Panel [NHANES] Frequency of Communication with Friends and Family: More than three times a week Frequency of Social Gatherings with Friends and Family: More than three times a week Attends Scientologist Services: 1 to 4 times per year [...] : 1940 [facility]#: [id number] Exam Date/Time: 04/03/2024 21:14 Procedure: CTA AORTA [...] evidence of phlegmasia. Heparin gtt initiated at [facility] prior to transfer and continued here. She notes missed doses of her Eliquis. Recommend compression and elevation of the right lower extremity. Can consider mechanical thrombectomy however given patient's age, this may be more risk than of benefit. Will continue to monitor for symptom improvement on anticoagulation alone. [facility] Work Phone: 04-04-2024 Note Formatting of this [...] - DO NOT do CPR, intubation] [_] [DNR-SMALL ARMS ARTILLERY REPAIRER - Comfort care only] [_] DNR form [...] DO [facility] 04/04/2024, 5:40 AM [employer] 04-04-2024 Note Formatting of this n ote [...] - DO NOT do CPR, intubation] [_] [DNR-SMALL ARMS ARTILLERY REPAIRER - Comfort care only] [_] DNR form [...] family/surrogate. Pratibha Avelar DO [facility] 04/04/2024, 5:40 AM T [facility] 04-04-2024 History and physical note Attending [...] min Stress: No Stress Concern Present (04/04/2024) [place] [employer] - Occupational Stress Questionnaire Feeling of Stress : Not at all Social Connections: Moderately Isolated (04/04/2024) Social Connection and Isolation Panel [NHANES] Frequency of Communication with Friends and Family: More than three times a week Frequency of Social Gatherings with Friends and Family: More than three times a week Attends Scientologist Services: 1 to 4 times per year [...] DO Division of Hospitalist Medicine Inpatient Medical Services/[facility] Work Phone: 04-04-2024 Note [facility] 04-04-2024 History and physical note [...] min Stress: No Stress Concern Present (04/04/2024) [place] [employer] - Occupational Stress Questionnaire Feeling of Stress : Not at all Social Connections: Moderately Isolated (04/04/2024) Social Connection and Isolation Panel [NHANES] Frequency of Communication with Friends and Family: More than three times a week Frequency of Social Gatherings with Friends and Family: More than three times a week Attends Scientologist Services: 1 to 4 times per year [...] Relation: Child Pratibha Avelar DO [facility] documented in this encounter [facility] 04-04-2024 Plan of care note The patient is Moderately Stable - Low risk of patient condition declining or worsening The patient's goals for the shift include met The clinical goals for the shift include met Over the shift, the patient did not make progress toward the following goals. Barriers to progression include . Recommendations to address these barriers include . [facility] 04-04-2024 Emergency department Note Report to Delia Bond RN 04/04/24 034 [facility] 04-04-2024 Emergency department Note Report to Delia Bond RN 04/04/24 034 Multiple attempts made to call report to [facility] with phone number provided by power nut runner operator, but when phone number dialed RN only gets busy tone. Will try again. Shannon Bond RN 04/04/24 033 [facility] at bedside to transport pt to [facility]. Paperwork with EMS Shannon Bond RN 04/04/24 9131 EMERGENCY DEPARTMENT ENCOUNTER Pt Name: Mel Pop [...] Resource Strain: Low Risk (05/18/2022) Received from [facility] Overall Financial Resource Strain (CARDIA) Difficulty of Paying Living Expenses: Not hard at all Food Insecurity: No Food Insecurity (05/18/2022) Received from [facility] Hunger Vital Sign Worried About Running Out of Food in the Last Year: Never true Ran Out of Food in the Last Year: Never true Transportation Needs: No Transportation Needs (05/18/2022) Received from [facility] PRAPARE - Transportation Lack of Transportation (Medical): No Lack of Transportation (Non-Medical): No Housing Stability: Unknown (05/18/2022) Received from [facility] Housing Stability Vital Sign Unable to Pay [...] Physician EKG interpretation can be found in [facility] RADIOLOGY (Per Emergency Physician): Interpretation [...] heparinize or admit her to [facility] in case she needs an emergent [...] SEBASTIAN Herrera CNP 04/03/242237 Emergency Department Encounter [facility] Patient: Mel Pop [...] consulted recommends heparin drip and transferred to [facility], 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 Patient admitted to [facility]. Patient in agreement with plan. Diagnostics [...] or other complaints. documented in this encounter [facility] 04-04-2024 Emergency department Note Multiple attempts made to call report to [facility] with phone number provided by power nut runner operator, but when phone number dialed RN only gets busy tone. Will try again. Shannon Bond RN 04/04/24 0331 [facility] 04-04-2024 Emergency department Note [facility] bedside to transport pt to [facility]. Paperwork with EMS Shannon Bond RN 04/04/24 0314 [facility] 04-03-2024 Emergency department Triage note Pt [...] upon arrival. No SOB or other complaints. [facility] 04-03-2024 Physician Emergency department Note EMERGENCY [...] Resource Strain: Low Risk (05/18/2022) Received from [facility] Overall Financial Resource Strain (CARDIA) Difficulty of Paying Living Expenses: Not hard at all Food Insecurity: No Food Insecurity (05/18/2022) Received from [facility] Hunger Vital Sign Worried About Running Out of Food in the Last Year: Never true Ran Out of Food in the Last Year: Never true Transportation Needs: No Transportation Needs (05/18/2022) Received from [facility] PRAPARE - Transportation Lack of Transportation (Medical): No Lack of Transportation (Non-Medical): No Housing Stability: Unknown (05/18/2022) Received from [facility] Housing Stability Vital Sign Unable to Pay [...] 82. I also reviewed external records from [facility]. I discussed their care with [facility]. Consideration for escalation of care with: Admission/observation discussed case with Dr. Blankenship, will place her on heparin, she does have reconstitution past the mid femoral occlusion and she has normal range of motion to the lower extremities but she has severe disease to the lower extremities will heparinize or admit her to [facility] in case she needs an emergent [...] Emergency Medicine Provider SEBASTIAN Herrera CNP 04/03/241 [facility] 04-03-2024 Physician Emergency department Note Emergency Department Encounter [facility] Patient: Mel Pop [...] consulted recommends heparin drip and transferred to [facility], 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 Patient admitted to [facility]. Patient in agreement with plan. Diagnostics [...] Cornell DO 04/06/24 1625 [facility] Work Phone: 07-27-2023 History of Present illness Narrative [facility] [address] [place] [address] [place] [id number] Dept: [phone] Dept Mel Pop 1940 [id number] 07/27/2023 HISTORY OF PRESENT ILLNESS: Mel is [...] improve. Electronically signed by Ming Weinberg MD [facility] Medical [facility] Department of Orthopedic surgery 07/27/2023 5:21 PM Voice recognition was used for portions of this note and although it was reviewed prior to signing some incorrect words or phrases could be present. documented in this encounter [facility] 07-06-2022 Miscellaneous Notes PATIENT INFORMATION Record ID: [id number] Patient Name: Mel [facility]: [facility] [place]: [facility] Attending: Iwona Chu Center: Internal Medicine and Geriatrics INSTRUCTIONS All Clear SN to remind patient of next upcoming appointment date, time, location All Clear All Clear All Clear SURVEY INFORMATION Medical/Nurse Turf Sales Person: Inés Tubbs 1. Your discharge instructions are [...] (Standard Question) No documented in this encounter [facility] 06-29-2022 Note HNO ID: [id number] Author: Joana Tolbert RPh Service: Pharmacy Author [...] Post discharge follow up instruction Joana Tolbert [facility] June 29, 2022 3:32 PM Medication [...] Your Medications These medications were sent to [facility] [address] [place] [address] Hours: Tuesday-Tuesday, 8am-4:30pm apixaban 5 mg (74 tabs) ascorbic acid (vitamin C) 500 mg tablet bacitracin 500 unit/gram ointment guaiFENesin 600 mg 12 hr tablet HYDROcodone-acetaminophen 5-325 mg per tablet lactobacillus rhamnosus 10 billion cell capsule metoprolol tartrate (short acting) [address] 40 mg tablet sucralfate 1 gram tablet [facility] 06-29-2022 Note HNO ID: [id number] Author: Kassidy Mejia RN Service: Care Management [...] needs and plan for meeting these needs: [facility] HANDOFF COMMUNICATION: TRANSPORTATION ARRANGEMENTS: Transportation Arrangements: Car ADDITIONAL CONTACT RESOURCES: [facility] was able to approve and deliver home O2. SIGNATURE: Kassidy Mejia RN PATIENT NAME: Mel Castillo DATE: June 29, 2022 TIME: 12:38 PM PAGER/CONTACT #: [phone] [facility] 06-28-2022 Note HNO ID: [id number] Author: Iwona Chu DO Service: Hospital Medicine Author Type: Physician Type: Progress Notes Filed: 06/28/2022 8:58 PM Note Text: Needs O2 arranged before discharge [facility] 06-28-2022 Note HNO ID: [id number] Author: Irene Han RN Service: Care Management [...] In Person (verbalized understanding) Referral sent to [facility] for home going O2. Awaiting ambulatory pox to be completed. Plan to return home with family support and HHC through [facility]. Family to transport. Will need home O2/HC orders, prior to dc. IMM completed. UPDATE @ 1435: [facility] is outside of the patient's service area. Additional DMR referrals sent to [facility] and [facility]; awaiting response. Will need accepting DMR provider and home O2 delivery, prior to discharge. Oxygen/HC orders in [facility]. SIGNATURE: Irene Han RN PATIENT NAME: Mel Castillo DATE: June 28, 2022 TIME: 1:58 PM PAGER/CONTACT #: [phone] [facility] 06-28-2022 Note HNO ID: [id number] Author: Iwona Chu DO Service: Hospital Medicine [...] micropuncture needle and serially upsized to a 5-Senegalese sheath. A venogram was then performed, which [...] time, the sheath was upsized to an 8-Senegalese sheath. An intravascular ultrasound was performed. This [...] of overt GI (more content not included)... [facility] 06-27-2022 Note HNO ID: [id number] Author: Iwona Chu DO Service: Hospital Medicine [...] micropuncture needle and serially upsized to a 5-Senegalese sheath. A venogram was then performed, which [...] time, the sheath was upsized to an 8-Senegalese sheath. An intravascular ultrasound was performed. This [...] accept for hh (more content not included)... [facility] 06-26-2022 Note HNO ID: [id number] Author: Iwona Chu DO Service: Hospital Medicine [...] micropuncture needle and serially upsized to a 5-Senegalese sheath. A venogram was then performed, which [...] time, the sheath was upsized to an 8-Senegalese sheath. An intravascular ultrasound was performed. This [...] 06/22/22 rec subacute/SNF (more content not included)... [facility] 06-25-2022 Note HNO ID: [id number] Author: Heron Ayers MD Service: Hospital Medicine [...] 18107/02/22 0859 06/16/221944 vte current anticoag therapy (ok,wa) 11/30/22 1945 activity - mobilize patient (ok,oh) VTE Prophylaxis: VTE prophylaxis appropriate Disposition: Home Plan of care discussed with: Provider, RN, Patient SIGNATURE: Heron Ayers MD PATIENT NAME: Mel Castillo DATE: June 25, 2022 TIME: 12:03 PM etx [id number] [facility] 06-25-2022 Note HNO ID: [id number] Author: Kassidy Mejia RN Service: Care Management [...] 25, 2022 TIME: 11:30 AM PAGER/CONTACT #: [phone] [facility] 06-24-2022 Note HNO ID: [id number] Author: Richie Yi MD Service: General Internal Medicine Author Type: Physician Type: Progress Notes Filed: 06/24/2022 6:34 PM Note Text: DEPARTMENT OF HOSPITAL MEDICINE PROGRESS NOTE SERVICE DATE: 06/23/2022 SERVICE TIME: 7:19 PM Hospital Medicine/Primary Attending: Richie Yi MD NIGHT AND WEEKEND COVERAGE: AMBOY COVERAGE: After 7pm, please call cross cover pager #[id number] Subjective Patient was seen today. She is [...] 0300 06/16/22 194 vte current anticoag therapy ([place], [place]) 06/16/221944 activity - mobilize patient ([place]) VTE Prophylaxis: VTE prophylaxis appropriate Disposition: To be determined Plan of care discussed with: Provider, RN, Patient SIGNATURE: Richie Yi MD PATIENT NAME: Mel Castillo DATE: June 23, 2022 TIME: 7:19 PM etx [id number] [facility] 06-24-2022 Note HNO ID: [id number] Author: SHAQUILLE Kaye Service: Care Management Author Type: Comic Illustrator Type: Care Mgt Progress Note Filed: 06/24/2022 [...] 24, 2022 TIME: 1:02 PM PAGER/CONTACT #: [phone] [facility] 06-23-2022 Note HNO ID: [id number] Author: Richie Yi MD Service: General Internal Medicine Author Type: Physician Type: Progress Notes Filed: 06/23/2022 7:28 PM Note Text: DEPARTMENT OF HOSPITAL MEDICINE PROGRESS NOTE SERVICE DATE: 06/23/2022 SERVICE TIME: 7:19 PM Hospital Medicine/Primary Attending: Richie Yi MD NIGHT AND WEEKEND COVERAGE: [place] COVERAGE: After 7pm, please call cross cover pager #[phone] Subjective Patient was seen today. She is [...] Subtherapeutic PTTAC) 0-30 mL[facility] Orders Report. 0-3,000 Units/hr INTRAVENOUS CONTINUOUS Rate Verify, 06/23 1617 06/22/22 1028 -- 06/16/221944 vte current anticoag therapy ([place], [place]) 06/16/221944 activity - mobilize patient ([place]) VTE Prophylaxis: VTE prophylaxis appropriate Disposition: To be determined Plan of care discussed with: Provider, RN, Patient SIGNATURE: Richie Yi MD PATIENT NAME: Mel Castillo DATE: June 23, 2022 TIME: 7:19 PM etx [id number] [facility] 06-23-2022 Note HNO ID: [id number] Author: Kassidy Mejia RN Service: Care Management Author Type: Registered Nurse Type: Care Mgt Progress Note Filed: 06/23/2022 4:00 PM Note Text: CARE MANAGEMENT PROGRESS NOTE SERVICE DATE: 06/23/2022 SERVICE TIME: 3:55 PM LOS: 7 days Spoke with pt at the bedside. Discussed SNF placement. Auth obtained for [facility]- pt would be responsible for copay 50% of cost per day for days 1-100. Pt refusing SNF at this time. Pt would like to d/c home with her son and dtr-in-law to ([address] [place] [address]). [facility]. Pt may need home O2- await ambulatory pulse ox. Family likely able to transport at d/c. CM to follow. SIGNATURE: Kassidy Mejia RN PATIENT NAME: Mel Castillo DATE: June 23, 2022 TIME: 3:53 PM PAGER/CONTACT #: [phone] [facility] 06-22-2022 Note HNO ID: [id number] Author: Dwayne Zaidi MD Service: Hospital Medicine Author Type: Physician Type: Progress Notes Filed: 06/22/2022 6:47 PM Note Text: DEPARTMENT OF HOSPITAL MEDICINE PROGRESS NOTE SERVICE DATE: 06/22/2022 SERVICE TIME: 6:42 PM Hospital Medicine/Primary Attending: Dwayne Zaidi MD NIGHT AND WEEKEND COVERAGE: After 7pm please page [phone] CHIEF COMPLAINT: Follow-up for acute left lower [...] bowel sounds normally heard, no mass palpable SPONGE DIVER- cranial nerves 2 to 12 grossly intact, [...] TPROT 5.3* -- (more content not included)... [facility] 06-22-2022 Note HNO ID: [id number] Author: Kassidy Mejia RN Service: Care Management Author Type: Registered Nurse Type: Care Mgt Progress Note Filed: 06/22/2022 10:15 AM Note Text: CARE MANAGEMENT PROGRESS NOTE SERVICE DATE: 06/22/2022 SERVICE TIME: 10:15 AM LOS: 6 days IMM Follow Up Copy Given: Yes Copy given to:: Patient Method: In Person (verbal) [facility] is able to accept pt. Precert tasked. Pt will need cot for transport. CM to follow. SIGNATURE: Kassidy Mejia RN PATIENT NAME: Mel Castillo DATE: June 22, 2022 TIME: 10:14 AM PAGER/CONTACT #: [phone] [facility] 06-21-2022 Note HNO ID: [id number] Author: Dwayne Zaidi MD Service: Hospital Medicine Author Type: Physician Type: Progress Notes Filed: 06/21/2022 4:10 PM Note Text: DEPARTMENT OF HOSPITAL MEDICINE PROGRESS NOTE SERVICE DATE: 06/21/2022 SERVICE TIME: 4:04 PM Hospital Medicine/Primary Attending: Dwayne Zaidi MD NIGHT AND WEEKEND COVERAGE: After 7pm please page [phone] CHIEF COMPLAINT: Follow-up for acute left lower [...] bowel sounds normally heard, no mass palpable SPONGE DIVER- cranial nerves 2 to 12 grossly intact, [...] COPD (chronic obstructive pulmonary disease) ([facility]) POA: Status not on file Tobacco abuse [...] by weight. Has (more content not included)... [facility] 06-21-2022 Note HNO ID: [id number] Author: Kassidy Mejia RN Service: Care Management Author Type: Registered Nurse Type: Care Mgt Progress Note Filed: 06/21/2022 3:44 PM Note Text: CARE MANAGEMENT PROGRESS NOTE SERVICE DATE: 06/21/2022 SERVICE TIME: 3:41 PM LOS: 5 days Spoke with pt at the bedside. Pt states that she lives at home alone. PT/OT rec SNF. Pt would like [facility] referral sent. Await acceptance. Pt will need precert when medically stable. Pt will need cot for transport. Cm to follow. SIGNATURE: Kassidy Mejia RN PATIENT NAME: Mel Castillo DATE: June 21, 2022 TIME: 3:41 PM PAGER/CONTACT #: [phone] [facility] 06-21-2022 Note HNO ID: [id number] Author: Primo Dodd APRN.SHAMIKA Service: Gastroenterology Author [...] evaluation given evidence (more content not included)... [facility] 06-20-2022 Note HNO ID: [id number] Author: Acacia Hardin DO Service: General Surgery Author Type: Resident Type: Plan of Care Filed: 06/20/2022 1:40 PM Note Text: Plan of Care Dr. 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 Spoke with Dr. Ferrell, network liaison for Dr. Rodriguez, and she states these [...] kg/m? Acacia Hardin DO 06/20/2022 1:36 PM [facility] 06-20-2022 Note HNO ID: [id number] Author: Dwayne Zaidi MD Service: Hospital Medicine Author Type: Physician Type: Progress Notes Filed: 06/20/2022 12:39 PM Note Text: DEPARTMENT OF HOSPITAL MEDICINE PROGRESS NOTE SERVICE DATE: 06/20/2022 SERVICE TIME: 12:35 PM Hospital Medicine/Primary Attending: Dwayne Zaidi MD NIGHT AND WEEKEND COVERAGE: After 7pm please page [phone] CHIEF COMPLAINT: Follow-up for acute left lower [...] bowel sounds normally heard, no mass palpable SPONGE DIVER- cranial nerves 2 to 12 grossly intact, [...] previous IVC tahmina (more content not included)... [facility] 06-19-2022 Note HNO ID: [id number] Author: Dwayne Zaidi MD Service: Hospital Medicine Author Type: Physician Type: Progress Notes Filed: 06/19/2022 4:33 PM Note Text: DEPARTMENT OF HOSPITAL MEDICINE PROGRESS NOTE SERVICE DATE: 06/19/2022 SERVICE TIME: 4:29 PM Hospital Medicine/Primary Attending: Dwayne Zaidi MD NIGHT AND WEEKEND COVERAGE: After 7pm please page [phone] CHIEF COMPLAINT: Follow-up for acute left lower [...] bowel sounds normally heard, no mass palpable SPONGE DIVER- cranial nerves 2 to 12 grossly intact, [...] stools and andrew (more content not included)... [facility] 06-18-2022 Note HNO ID: [id number] Author: Emanuel Hull MD Service: General Surgery [...] Surgery PGY-3 June 18, 2022 5:39 PM [facility] 06-18-2022 Note HNO ID: [id number] Author: Dwayne Zaidi MD Service: Hospital Medicine Author Type: Physician Type: Progress Notes Filed: 06/18/2022 5:37 PM Note Text: DEPARTMENT OF HOSPITAL MEDICINE PROGRESS NOTE SERVICE DATE: 06/18/2022 SERVICE TIME: 5:35 PM Hospital Medicine/Primary Attending: Dwayne Zaidi MD NIGHT AND WEEKEND COVERAGE: After 7pm please page [phone] CHIEF COMPLAINT: Follow-up for acute left lower [...] bowel sounds normally heard, no mass palpable SPONGE DIVER- cranial nerves 2 to 12 grossly intact, [...] + Bolus for (more content not included)... [facility] 06-18-2022 Note HNO ID: [id number] Author: Kassidy Mejia RN Service: Care Management [...] 18, 2022 TIME: 3:46 PM PAGER/CONTACT #: [phone] [facility] 06-17-2022 Note HNO ID: [id number] Author: Eliza Parikh RN Service: Nursing Author Type: Registered Nurse Type: Nursing Progress Note Filed: 06/17/2022 7:24 PM Note Text: Pt to 4200 via bed. Pt tolerated well. [facility] 06-17-2022 Note HNO ID: [id number] Author: Eliza Parikh RN Service: Nursing Author Type: Registered Nurse Type: Nursing Progress Note Filed: 06/17/2022 4:35 PM Note Text: Report to 4[address] Jayne FRAGA [facility] 06-17-2022 Note HNO ID: [id number] Author: Efrain Ivey (Gear Setter) Service: Pharmacy Author Type: Ore Buyer Type: Plan of Care Filed: 06/17/2022 2:16 PM Note Text: PHARMACY MEDICATION REVIEW Patient Name: Mel Castillo : 1940 The following medications were updated within the JEWEL SUPERVISOR medication list: Medications ADDED to JEWEL SUPERVISOR medication list amLODIPine (NORVASC) 10 mg tablet OTHER Yes Yes dexAMETHasone (DECADRON) 4 mg tablet OTHER Yes Yes lisinopril (ZESTRIL, PRINIVIL) 5 mg tablet OTHER Yes Yes RX filled via [employer] and verified with pt. herself Medications CHANGED on JEWEL SUPERVISOR medication list na Medications REMOVED from JEWEL SUPERVISOR medication list na Additional comments: I was able to talk with the pt. about her home medications. She states she takes the 3 RX medications recorded below. These 3 medications were added to her JEWEL SUPERVISOR list. She has finished Paxlovid and a physician stopped Augmentin per pt. interview Required follow up for nursing. Medication history completed by Historian. No nursing follow up required. The below information represents the best possible medication history: Yes Medication history completed by: Ore Buyer: Efrain Ivey ([employer]) Source of history: Patient: Reliability of source: Appears reliable, clearly identified: Medication name, Medication dose, Medication route, and Medication frequency and Pharmacy records: Epic e-script [facility] Medication nonadherence identified: No barriers noted Reconciliation completed: No, pharmacist not yet reviewed Patient interested in Bedside Delivery Services or using OP Pharmacy at discharge? No Preferred outpatient pharmacy: [id number] [place] [address] - [phone] [phone] Allergies: Percocet [Oxycodone* Itching Prior to Admission [...] once daily. Facility-Administered Medications: None Efrain Ivey ([employer]) phone [phone] 06/17/2022 [facility] 06-17-2022 Note HNO ID: [id number] Author: Ladan Adame RN Service: Care Management [...] 17, 2022 TIME: 12:37 PM PAGER/CONTACT #: [phone] [facility] 06-17-2022 Note HNO ID: [id number] Author: Eliza Parikh RN Service: Nursing Author Type: Registered Nurse Type: Nursing Progress Note Filed: 06/17/2022 10:40 AM Note Text: Echo at bedside [facility] 06-16-2022 Note HNO ID: [id number] Author: Cirilo Alaniz APRN.CRNA Service: Anesthesiology Author Type: Nurse Medical Staff Services Manager Type: Anesthesia Procedure Notes Filed: 06/16/2022 5:04 PM Note Text: ANESTHESIOLOGY PROCEDURE NOTE Airway General Information Procedure Start Time/Medication Administration: 06/16/2022 4:29 PM Patient location during procedure: OR Timeout Performed Pre-procedure: timeout performed Consent Obtained: Yes Patient identity confirmed: arm band and patient Staffing CENTRAL OFFICE REPAIRER SUPERVISOR: Cirilo Alaniz APRN.CENTRAL OFFICE REPAIRER SUPERVISOR Indications and Patient Condition Indications for airway management: anesthesia Preoxygenated: yes anesthesia circuit Method: asleep Difficult Mask: No Final Airway Details Final airway type: endotracheal airway Final Endotracheal Airway: ETT Cuffed: yes Successful intubation technique: video laryngoscopy Devices used: [employer] Endotracheal tube insertion site: oral Blade: Kit Blade size: #3 ETT size (mm): 7.0 Measured from: lips Measurement (cm): 21 Placement verified by: chest auscultation and capnometry Cormack-Lehane Classification: grade I - full view of glottis Number of attempts at approach: 1 Airway not difficult SIGNATURE: Cirilo Alaniz APRN.CRNA PATIENT NAME: Mel Castillo DATE: June 16, 2022 TIME: 5:03 PM CSN: [id number] [facility] 06-16-2022 Note HNO ID: [id number] Author: Jean Pierre Gamboa RPh Service: Pharmacy [...] patient. Signature: Jean Pierre Gamboa tali Pager/Extension: [phone] [facility] 05-17-2022 History of Present illness Narrative [...] be seen in the emergency room at [facility] for probable admission for IV antibiotics and airway concern. Patient understands this and will leave shortly. Josiah Barnes MD Findings will be communicated to the referring physician via mail or electronic medical record. documented in this encounter [facility] 05-14-2022 Instructions Jared Velazquez PA-C - [...] Jared Velazquez PA-C documented in this encounter [facility] 05-14-2022 History of Present illness Narrative [...] which included preparing to see the patient, [id number] patient care, completing clinical documentation, performing a medically appropriate examination, counseling and educating the patient/family/caregiver, and ordering medications, tests, or procedures. 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 [facility] Diagnosis Acute bacterial sialadenitis- Primary Bashir's, angina [facility] Diagnosis Localized swelling, mass and lump, neck Swelling, mass, or lump in head and neck [facility] Diagnosis Localized swelling, mass and lump, neck Swelling, mass, or lump in head and neck [facility] Diagnosis Localized swelling, mass and lump, neck- Primary Swelling, mass, or lump in head and neck Localized swelling, mass and lump, neck Swelling, mass, or lump in head and neck [facility] Diagnosis Other specified soft tissue disorders [facility] Diagnosis Localized swelling, mass and lump, neck- Primary Swelling, mass, or lump in head and neck Localized swelling, mass and lump, neck Swelling, mass, or lump in head and neck [facility] Diagnosis Abnormal findings on diagnostic imaging of other specified body structures Pain in left leg [facility]* 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[facility]* Diagnosis Other specified soft tissue disorders- Primary Other specified soft tissue disorders [facility]* Diagnosis Abnormal findings on diagnostic imaging of other specified body structures- Primary Pain in left leg Abnormal findings on diagnostic imaging of other specified body structures Pain in left leg documented [facility]* Diagnosis Peripheral arterial disease (HCC)- Primary Unspecified peripheral vascular disease Right leg pain Pain in soft tissues of limb Peripheral arterial disease (HCC) Unspecified peripheral vascular disease Right leg weakness Muscle weakness (generalized) Atrial fibrillation, unspecified type (HCC) Ischemic leg Unspecified circulatory system disorder documented [facility]* Diagnosis Deep vein thrombosis (DVT) of lower extremity, unspecified chronicity, unspecified laterality, unspecified vein (HCC)- Primary [facility] Diagnosis Atrial fibrillation, unspecified type (HCC) Acute venous embolism and thrombosis of deep vessels of proximal end of right lower extremity (HCC) [facility] Diagnosis Acute deep vein thrombosis (DVT) of iliac vein of right lower extremity (HCC)- Primary PAD (peripheral artery disease) (HCC) Unspecified peripheral vascular disease documented [facility]* Diagnosis Deep vein thrombosis (DVT) of lower extremity, unspecified chronicity, unspecified laterality, unspecified vein (HCC) Atrial fibrillation, unspecified type (HCC) Acute venous embolism and thrombosis of deep vessels of proximal end of right lower extremity (HCC) [facility] Diagnosis Atrial fibrillation, unspecified type (HCC) Acute venous embolism and thrombosis of deep vessels of proximal end of right lower extremity (HCC) [facility]* Diagnosis Atrial fibrillation, unspecified type (HCC) Acute venous embolism and thrombosis of deep vessels of proximal end of right lower extremity (HCC) documented in this encounter [facility] note* Diagnosis Paroxysmal atrial fibrillation (HCC) Atrial fibrillation documented in this encounter [facility] note* Diagnosis Atrial fibrillation, unspecified type (HCC) [...] or 3b CKD (HCC) 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 (HCC) 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 Nicotine use disorder Tobacco use disorder Abnormal echocardiogram Nonspecific (abnormal) findings on radiological and other examination of other intrathoracic organs Left atrial mass documented in this encounter [facility] note* Diagnosis Retinal detachment, right- Primary Unspecified retinal detachment Vision loss of right eye Unqualified visual loss, one eye Acute intractable headache, unspecified headache type Visual disturbance, subjective Unspecified subjective visual disturbance Vision loss of right eye Unqualified visual loss, one eye Visual disturbance, subjective Unspecified subjective visual disturbance documented in this encounter [facility] note* Diagnosis 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 Hemorrhagic choroidal detachment Dislocation of intraocular lens, initial encounter documented in this encounter [facility] note* Diagnosis 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 Hemorrhagic choroidal detachment documented in this encounter [facility] note* Diagnosis 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 Hemorrhagic choroidal detachment Dislocation of intraocular lens, initial encounter Hemorrhagic choroidal detachment of right eye Hemorrhagic choroidal detachment documented in this encounter [facility] note* Diagnosis 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 Hemorrhagic choroidal detachment Hemorrhagic choroidal detachment of right eye Hemorrhagic choroidal detachment documented in this encounter [facility] note* Diagnosis Postoperative eye state- Primary Other states following surgery of eye and adnexa Hemorrhagic choroidal detachment of right eye Hemorrhagic choroidal detachment Pseudophakia, right eye Lens replaced by other means Subluxation of right lens Subluxation of lens documented in this encounter [facility] note* Diagnosis Paroxysmal atrial fibrillation (HCC)- Primary Atrial fibrillation Paroxysmal atrial fibrillation (HCC) Atrial fibrillation documented in this encounter [facility] note* Diagnosis Postoperative eye state Other states following surgery of eye and adnexa Hemorrhagic choroidal detachment of right eye Hemorrhagic choroidal detachment Pseudophakia, right eye Lens replaced by other means Subluxation of right lens Subluxation of lens Hemorrhagic choroidal detachment of right eye Hemorrhagic choroidal detachment [facility]* Diagnosis Post-operative state- Primary Other postprocedural status [facility]* Diagnosis Postoperative eye state Other states following surgery of eye and adnexa Hemorrhagic choroidal detachment of right eye Hemorrhagic choroidal detachment Pseudophakia, right eye Lens replaced by other means Subluxation of right lens Subluxation of lens [facility]* Diagnosis Aspiration pneumonitis (CMS/HCC) (HCC)- Primary Pneumonitis due to inhalation of food or vomitus Aspiration pneumonitis (CMS/HCC) (HCC) Pneumonitis due to inhalation of food or vomitus Vomiting and diarrhea LORENZA (acute kidney injury) (HCC) [facility]* Diagnosis Acute deep vein thrombosis (DVT) of iliac vein of right lower extremity (HCC)- Primary PAD (peripheral artery disease) (HCC) Unspecified peripheral vascular disease [facility]* Diagnosis Postoperative eye state Other states following surgery of eye and adnexa Hemorrhagic choroidal detachment of right eye Hemorrhagic choroidal detachment Pseudophakia, right eye Lens replaced by other means Subluxation of right lens Subluxation of lens [facility]* Diagnosis 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 Hemorrhagic choroidal detachment Right retinal detachment Unspecified retinal detachment Postoperative eye state Other states following surgery of eye and adnexa Pseudophakia, right eye Lens replaced by other means Subluxation of right lens Subluxation of lens [facility] noteNo assessment information availableWPremier [facility] Work Phone: Evaluation note* Diagnosis PAD (peripheral artery disease) (HCC)- Primary Unspecified peripheral vascular disease Skin ulcer of toe of right foot, limited to breakdown of skin (HCC) [facility]* Diagnosis Critical limb ischemia of right lower extremity (HCC)- Primary [facility]* Diagnosis Pre-op evaluation- Primary Skin ulcer [...] NEC [facility] Diagnosis Skin ulcer of toe of right foot, limited to breakdown of skin (HCC) PAD (peripheral artery disease) (HCC) Unspecified peripheral vascular disease Aftercare following surgery of the circulatory system Aftercare following surgery of the circulatory system, NEC [facility] Diagnosis Aftercare following surgery of the circulatory system- Primary Aftercare following surgery of the circulatory system, NEC PAD (peripheral artery disease) (HCC) Unspecified peripheral vascular disease [facility]* Diagnosis 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 Hemorrhagic choroidal detachment [facility]* Diagnosis Right retinal detachment- Primary Unspecified retinal detachment Hemorrhagic choroidal detachment of right eye Hemorrhagic choroidal detachment Pseudophakia, right eye Lens replaced by other means documented in this encounter [facility] note* Diagnosis Acute deep vein thrombosis (DVT) of proximal vein of lower extremity, unspecified laterality (HCC)- Primary documented in this [facility] (narrative)No reason for referral information availableWPremier Health [facility] Work Phone: Reason for visit Narrative* Imaging (Routine) - Closed Specialty Diagnoses / Procedures Referred By Elvin leyva Referred To Contact Cardiology Diagnoses Paroxysmal atrial fibrillation (HCC) Procedures Transthoracic echocardiogram (TTE) complete with contrast, bubble, strain, and 3D PRN WY ECHO TTHRC R-T 2D W/WOM-MODE COMPL SPEC&COLR D WY TTE W OR WO FOL WCNICK,Jared De La Garza MD [address] [place] [phone] Phone: tel: fax: Referral ID Status Reason Start Date Expiration Date Visits Re quested Visits Authorized [id number] Closed 04/20/2024 04/20/2025 1 1 [facility] for visit Narrative* Auth/Cert (Routine) Specialty Diagnoses / Procedures Referred By Elvin leyva Referred To Contact Diagnoses Aspiration pneumonitis (CMS/HCC) (HCC) LORENZA (acute kidney injury) (HCC) Vomiting and diarrhea Procedures . Abbi Long DO [address] [place] [address] Phone: tel: fax: [facility] [address] [place] [address] Phone: tel: Referral ID Status Reason Start Date Expiration Date Visits Re quested Visits Authorized [id number] 1 1 [facility] [employer] for visit Narrative* Auth/Cert (Routine) Specialty Diagnoses [...] RUNOFF, POSSIBLE SUPERFICIAL FEMORAL ARTERY/POPLITEAL/TIBIAL ANGIOPLASTY/STENTING Kristyn Blankensihp MD [address] [place] [address] Phone: tel: fax: [facility] MAIN OR [address] [place] [address] Phone: tel: Referral ID Status Reason Start Date Expiration Date Visits Re quested Visits Authorized [id number] 1 1 [id number] for visit Narrative* Imaging (Routine) - Closed [...] Kristyn Blankenship MD [address] [place] [address] Phone: tel: fax: [facility] [address] [place] [address] Phone: tel: fax: Referral ID Status Reason Start Date Expiration Date Visits Re quested Visits Authorized [id number] Closed 12/05/2024 12/05/2025 1 1 [facility] Discharge Instructions * Attachments The following attachments cannot be sent through Care Everywhere. * Pulp-Space Infection (Khmer) documented in this encounter* Instructions* Tiffany Zhu [...] Documents on File Type Date Recorded Patient Project Manager Process Development Expl anation Power of Marketing Communications Coordinator 04/06/2024 10:04 AM Date Activated Date Inactivated [...] Documents on File Type Date Recorded Patient Project Manager Process Development Expl anation Power of Marketing Communications Coordinator 04/16/2024 1:26 PM Power of Marketing Communications Coordinator 04/06/2024 10:04 AM Healthcare Agents on File [...] Documents on File Type Date Recorded Patient Project Manager Process Development Expl anation Power of Marketing Communications Coordinator 04/16/2024 1:26 PM Power of Marketing Communications Coordinator 04/06/2024 10:04 AM Date Activated Date Inactivated [...] Documents on File Type Date Recorded Patient Project Manager Process Development Expl anation Advance Directive(s) 06/27/2024 12:58 PM [...] Documents on File Type Date Recorded Patient Project Manager Process Development Expl anation Advance Directive(s) 06/27/2024 12:58 PM [...] Documents on File Type Date Recorded Patient Project Manager Process Development Expl anation DNR (Do Not Resuscitate) 07/13/2024 10:35 AM Power of Marketing Communications Coordinator 04/16/2024 1:26 PM Power of Marketing Communications Coordinator 04/06/2024 10:04 AM Date Activated Date Inactivated [...] Documents on File Type Date Recorded Patient Project Manager Process Development Expl anation DNR (Do Not Resuscitate) 07/13/2024 10:35 AM Power of Marketing Communications Coordinator 04/16/2024 1:26 PM Power of Marketing Communications Coordinator 04/06/2024 10:04 AM Date Activated Date Inactivated [...] First Alternate Health Care Agent Nadira Castillo Pdathonz-ls-qug First Alternat e Health Care Agent Healthcare Agents on File Name Relationship Healthcare Agent Relationship Communication Damaris DO NOT CALL-TERMINALLY ILL [place] Friend First Alternate Health Care Agent Nadira Castillo Jsslpcfm-cv-dww First Alternat e Health Care Agent Healthcare Agents on File Name Relationship Healthcare Agent Relationship Communication Damaris DO NOT CALL-TERMINALLY ILL [place] Friend First Alternate Health Care Agent Nadira Castillo Qlrvsuts-sb-rpg First Alternat e Health Care Agent Date Activated Date Inactivated Comments 08/03/2024 10:17 AM 08/16/2024 4:47 PM Healthcare Agents on File Name Relationship Healthcare Agent Relationship Communication Damaris DO NOT CALL-TERMINALLY ILL [place] Friend First Alternate Health Care Agent Nadira Castillo Lfdqsyov-[id number] First Alternat e Health Care Agent Healthcare Agents on File Name Relationship Healthcare Agent Relationship Communication Damaris DO NOT CALL-TERMINALLY ILL [place] Friend First Alternate Health Care Agent Nadira Castillo Cdppozda-yw-mmq First Alternat e Health Care Agent Healthcare Agents on File Name Relationship Healthcare Agent Relationship Communication Damaris DO NOT CALL-TERMINALLY ILL [place] Friend First Alternate Health Care Agent Nadira Castillo Utjomicx-wi-zpj First Alternat e Health Care Agent Healthcare Agents on File Name Relationship Healthcare Agent Relationshi p Communication Nadira Castillo Qvdndqxn-jy-ylg First Alternat e Health Care Agent Healthcare Agents on File Name Relationship Healthcare Agent Relationshi p Communication Nadira Castillo Ortmiepd-ks-ewu First Alternat e Health Care Agent Summary [...] gland swelling Procedures CONSULT TO ENT OFFICE/OUTPATIENT [facility] 60-74 MINUTES Jared Velazquez PA-C [address] [place] [address] Referral ID Status Reason Start Date Expiration Date Visits Requested Visits Authorized [id number] Authorized PCP Requested Referral 2 05/14/2023 1 1 Specialty Diagnoses / Procedures Referred By Elvin leyva Referred To Contact Radiology Diagnoses Localized swelling, mass and lump, neck Procedures CT soft tissue neck w IV contrast Jared Evans MD [address] [place] [phone] Referral ID Status Reason Start Date Expiration Date Visits Re quested Visits Authorized [id number] Closed 03/08/2023 04/07/2023 1 1 Specialty Diagnoses / Procedures Referred By Elvin leyva Referred To Contact Cardiology Diagnoses Other specified soft tissue disorders Procedures Vascular US lower extremity venous duplex left Jared Evans MD [address] [place] [phone] Referral ID Status Reason Start Date Expiration Date V isits Requested Visits Authorized [id number] Pending Review 05/24/2023 05/23/2024 1 1 Specialty Diagnoses / Procedures Referred By Elvin leyva Referred To Contact Radiology Diagnoses Abnormal findings on diagnostic imaging of other specified body structures Pain in left leg Procedures MR tibia fibula left w and wo IV contrast Jared Evans MD [address] [place] [phone] Referral ID Status Reason Start Date Expiration Date Visits Re quested Visits Authorized [id number] Closed 06/01/2023 05/31/2024 1 1 Health Concerns Infection Onset Date Last Indicated Resolved Time COVID-19 Confirmed Comment:First positive per [facility] system 06/02/2022. 06/16/2022 06/16/2022 06/19/2022 5:[address] Chief Complaint and Reason for Visit Chief Complaint Admit Date LABWORK August 20, 2024 5 :22am LABWORK September 03, 2024 5:00am SENIOR CARE LAB WORK September 03 8:18am SENIOR CARE LAB WORK September 10 5:00am Chief Complaint Admit Date LABWORK August 20, 2024 5 :22am LABWORK September 03, 2024 5:00am SENIOR CARE LAB WORK September 03 8:18am SENIOR CARE LAB WORK September 10 5:00am SENIOR CARE LAB WORK September 17, 2024 4: 00am Chief Complaint Admit Date LABWORK August 20, 2024 5 :22am LABWORK September 03, 2024 5:00am SENIOR CARE LAB WORK September 03 8:18am SENIOR CARE LAB WORK September 10 5:00am SENIOR CARE LAB WORK September 17, 2024 4: 00am SENIOR CARE LAB WORK October 08, 2024 5 :00am Additional Source Comments Reason for Visit (unrecogniz ed section and content) Reason Comments Post-op (Ophthalmology) Right Eye Specialty Diagnoses / Procedures Referred By Elvin leyva Referred To Contact HOSP INPATIENT Diagnoses Retinal detachment Acute retinal detachment Retinal detachment Procedures [facility]AL [facility] TREAT OT [facility] [address] [place] [address] Referral ID Status Reason Start Date Expiration Date Visits Re quested Visits Authorized [id number] 1 1 Reason Comments Hemorrhagic choroidal detachment [...] gland swelling Procedures CONSULT TO ENT OFFICE/OUTPATIENT [facility] 60-74 MINUTES Jared Velazquez PA-C [address] [place] [address] Referral ID Status Reason Start Date Expiration Date V isits Requested Visits Authorized [id number] Closed PCP Requested Referral 05/14/2022 05/14/2023 1 1 Reason Comments Follow Up Gyant interaction - F/U - attempt made. No answer. Reason Comments Follow Up Phone Call All Clear Specialty Diagnoses / Procedures Referred By Elvin leyva Referred To Contact Radiology Diagnoses Localized swelling, mass and lump, neck Procedures CT soft tissue neck w IV contrast Jared Evans MD [address] [place] [phone] Referral ID Status Reason Start Date Expiration Date Visits Re quested Visits Authorized [id number] Closed 03/08/2023 04/07/2023 1 1 Specialty Diagnoses / Procedures Referred By Elvin leyva Referred To Contact Cardiology Diagnoses Other specified soft tissue disorders Procedures Vascular US lower extremity venous duplex left Jared Evans MD [address] [place] [phone] Referral ID Status Reason Start Date Expiration Date V isits Requested Visits Authorized [id number] Pending Review 05/24/2023 05/23/2024 1 1 Specialty Diagnoses / Procedures Referred By Contac t Referred To Contact Radiology Diagnoses Abnormal findings on diagnostic imaging of other specified body structures Pain in left leg Procedures MR tibia fibula left w and wo IV contrast Jared Evans MD [address] [place] [phone] Referral ID Status Reason Start Date Expiration Date Visits Re quested Visits Authorized [id number] Closed 06/01/2023 05/31/2024 1 1 Reason Comments New Patient Mass left LE Specialty Diagnoses / Procedures Referred By Contac t Referred To Contact Sports Medicine Diagnoses Pain in leg, unspecified Jared Evans MD [address] [place] [phone] [place] [address] Referral ID Status Reason Start Date Expiration Date Visits Re quested Visits Authorized [id number] Closed 07/06/2023 07/05/2024 1 1 Reason Comments Numbness Leg Swelling Specialty Diagnoses / Procedures Referred By Contac t Referred To Contact Diagnoses Right leg pain Peripheral arterial disease (HCC) Right leg weakness Atrial fibrillation, unspecified type (HCC) Procedures . Pratibha Avelar, [address] [place] [address] [phone] Referral ID Status Reason Start Date Expiration Date Visits Re quested Visits Authorized [id number] 1 1 Reason Comments Follow-up 1st follow up RLE me chanical thrombectomy 04/06/24 (Krzysztof) Reason Onset Date Comments Med Refill 04/27/2024 Specialty Diagnoses / Procedures Referred By Contac t Referred To Contact Diagnoses [I63.9] - Cerebral infarction [facility] [address] [place] [address] Referral ID Status Reason Start Date Expiration Date V isits Requested Visits Authorized [id number] New Request 06/20/2024 08/19/2024 Reason Comments Eye Problem Pt reports blurred v ision, dizziness, and headache. LNW 07/04/24 @ 2130. Hx of strokes x 2, HTN, Afib, and right eye retinal detachment. Specialty Diagnoses / Procedures Referred By Elvin leyva Referred To Contact Diagnoses Retinal detachment, right Vision loss of right eye Procedures . Silvio Peres MD [address] [place] [address] Phone: tel: fax: [facility] EMERGENCY DEPT [address] [place] [phone] Phone: tel: Referral ID Status Reason Start Date Expiration Date Visits Re quested Visits Authorized [id number] 1 1 Reason Comments Eye Pain Right [...] OF VITREOUS, CHOROIDAL FLUID, PARS PLANA APPROACH [facility] [address] [address] Referral ID Status Reason Start Date Expiration Date Visits Re quested Visits Authorized [id number] 1 1 Reason Comments 1 week post [...] and diarrhea Procedures . Abbi Long DO [address] [place] [address] Phone: tel: fax: [facility] [address] [place] [address] Phone: tel: Referral ID Status Reason Start Date Expiration Date Visits Re quested Visits Authorized [id number] 1 1 Reason Comments Follow-up 3 month follow up, P AD check ([facility] [place]) Reason Comments Post-op (Ophthalmology) Right Eye 1 marisela h Reason Comments Post op OD Reason Comments Follow-up R leg pain with grea t toe wound-PVR and CTA w runoff 03/2024 Reason Comments Follow-up 1st follow up RLE an juliana, possible SFA/pop/tib angioplasty/stenting 11/22/24 Reason Comments 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; 2nd follow up RLE angio, SFA/pop/tib angioplasty/stenting 11/22/24 ([facility] [phone]) Reason Comments Post-op (Ophthalmology) Right Eye Retinal Detachment OD Eye Crusting OD In the mornings Reason Comments Follow-up INFORMATION SOURCE (unrecogn ized section and content) DATE CREATED AUTHOR 03/13/2020 [facility] DATE CREATED AUTHOR AUTHOR'S ORGANIZ ATION 06/30/2022 [facility] DATE CREATED AUTHOR AUTHOR'S ORGANIZ ATION 07/10/2024 [facility] DATE CREATED AUTHOR AUTHOR'S ORGANIZ ATION 12/14/2024 [facility] DATE CREATED AUTHOR AUTHOR'S ORGANIZ ATION 01/05/2025 [facility] DATE CREATED AUTHOR AUTHOR'S ORGANIZ ATION 03/17/2025 [facility] DATE CREATED AUTHOR AUTHOR'S ORGANIZ ATION 05/29/2025 [facility] Source Comments (unrecognize d section and content) In the event this informatio n is protected by the Federal Confidentiality of Alcohol and Drug Abuse Patient Records regulations: The Federal rules restrict any use of the information to criminally investigate or prosecute any alcohol or drug abuse patient.[facility] the event this information is protected by the Federal Confidentiality of Alcohol and Drug Abuse Patient Records regulations: The Federal rules restrict any use of the information to criminally investigate or prosecute any alcohol or drug abuse patient.[facility] Hospital[facility] the event this information is protected by the Federal Confidentiality of Alcohol and Drug Abuse Patient Records regulations: The Federal rules restrict any use of the information to criminally investigate or prosecute any alcohol or drug abuse patient.[facility] Hospital[facility] the event this information is protected by the Federal Confidentiality of Alcohol and Drug Abuse Patient Records regulations: The Federal rules restrict any use of the information to criminally investigate or prosecute any alcohol or drug abuse patient.[facility] Hospital[facility] the event this information is protected by the Federal Confidentiality of Alcohol and Drug Abuse Patient Records regulations: The Federal rules restrict any use of the information to criminally investigate or prosecute any alcohol or drug abuse patient.[facility] Hospital[facility] the event this information is protected by the Federal Confidentiality of Alcohol and Drug Abuse Patient Records regulations: The Federal rules restrict any use of the information to criminally investigate or prosecute any alcohol or drug abuse patient.[facility] Hospital[facility] the event this information is protected by the Federal Confidentiality of Alcohol and Drug Abuse Patient Records regulations: The Federal rules restrict any use of the information to criminally investigate or prosecute any alcohol or drug abuse patient.[facility] Hospital[facility] the event this information is protected by the Federal Confidentiality of Alcohol and Drug Abuse Patient Records regulations: The Federal rules restrict any use of the information to criminally investigate or prosecute any alcohol or drug abuse patient.[facility] HospitalIn the event this information is protected by the Federal Confidentiality of Alcohol and Drug Abuse Patient Records regulations: The Federal rules restrict any use of the information to criminally investigate or prosecute any alcohol or drug abuse patient.[facility] HospitalIn the event this information is protected by the Federal Confidentiality of Alcohol and Drug Abuse Patient Records regulations: The Federal rules restrict any use of the information to criminally investigate or prosecute any alcohol or drug abuse patient.[facility] HospitalIn the event this information is protected by the Federal Confidentiality of Alcohol and Drug Abuse Patient Records regulations: The Federal rules restrict any use of the information to criminally investigate or prosecute any alcohol or drug abuse patient.[facility] HospitalIn the event this information is protected by the Federal Confidentiality of Alcohol and Drug Abuse Patient Records regulations: The Federal rules restrict any use of the information to criminally investigate or prosecute any alcohol or drug abuse patient.[facility] HospitalIn the event this information is protected by the Federal Confidentiality of Alcohol and Drug Abuse Patient Records regulations: The Federal rules restrict any use of the information to criminally investigate or prosecute any alcohol or drug abuse patient.[facility] HospitalIn the event this information is protected by the Federal Confidentiality of Alcohol and Drug Abuse Patient Records regulations: The Federal rules restrict any use of the information to criminally investigate or prosecute any alcohol or drug abuse patient.[facility] HospitalIn the event this information is protected by the Federal Confidentiality of Alcohol and Drug Abuse Patient Records regulations: The Federal rules restrict any use of the information to criminally investigate or prosecute any alcohol or drug abuse patient.[facility] HospitalIn the event this information is protected by the Federal Confidentiality of Alcohol and Drug Abuse Patient Records regulations: The Federal rules restrict any use of the information to criminally investigate or prosecute any alcohol or drug abuse patient.[facility] HospitalIn the event this information is protected by the Federal Confidentiality of Alcohol and Drug Abuse Patient Records regulations: The Federal rules restrict any use of the information to criminally investigate or prosecute any alcohol or drug abuse patient.[facility] HospitalIn the event this information is protected by the Federal Confidentiality of Alcohol and Drug Abuse Patient Records regulations: The Federal rules restrict any use of the information to criminally investigate or prosecute any alcohol or drug abuse patient.[facility] HospitalIn the event this information is protected by the Federal Confidentiality of Alcohol and Drug Abuse Patient Records regulations: The Federal rules restrict any use of the information to criminally investigate or prosecute any alcohol or drug abuse patient.[facility] Care Teams (unrecognized sec tion and content) Neon Electrician Relationship Specialty Start Date End Date Pcp, No PCP - General 01/30/22 08/17/22 Neon Electrician Relationship Specialty Start Date End Date Pcp, No PCP - General 01/30/22 08/17/22 Neon Electrician Relationship Specialty Start Date End Date Jared Evans MD [address] [place] [phone] PCP - General Family Medicine 05/18/22 Neon Electrician Relationship Specialty Start Date End Date Jared Evans MD [address] [place] [phone] PCP - General Family Medicine 05/18/22 Neon Electrician Relationship Specialty Start Date End Date Jared Evans MD [address] [place] [phone] PCP - General Family Medicine 05/18/22 Neon Electrician Relationship Specialty Start Date End Date Jared Evans MD [address] [place] [address] PCP - General 03/06/20 Neon Electrician Relationship Specialty Start Date End Date Jared Evans MD [address] [place] [address] PCP - General 03/06/20 Neon Electrician Relationship Specialty Start Date End Date Jared Evans MD [address] [place] [address] PCP - General 03/06/20 Neon Electrician Relationship Specialty Start Date End Date Jared Evans MD [address] [place] [address] PCP - General 03/06/20 Neon Electrician Relationship Specialty Start Date End Date Jared Evans MD [address] [place] [address] PCP - General 03/06/20 Neon Electrician Relationship Specialty Start Date End Date Jared Evans MD [address] [place] [address] PCP - General 03/06/20 Neon Electrician Relationship Specialty Start Date End Date Jared Evans MD [address] [place] [address] PCP - General 03/06/20 Neon Electrician Relationship Specialty Start Date End Date Jared Evans MD [address] [place] [address] PCP - General 03/06/20 Neon Electrician Relationship Specialty Start Date End Date Jared Evans MD [address] [place] [address] PCP - General 03/06/20 Neon Electrician Relationship Specialty Start Date End Date Jared Evans MD [address] [place] [address] PCP - General 03/06/20 Neon Electrician Relationship Specialty Start Date End Date Jared Evans MD [address] [place] [address] PCP - General 03/06/20 Neon Electrician Relationship Specialty Start Date End Date Jared Evans MD [address] [place] [address] PCP - General 03/06/20 Neon Electrician Relationship Specialty Start Date End Date Jared Evans MD [address] [place] [address] PCP - General 03/06/20 Henok Hernandez PA-C [address] [place] [address] Physician Turf Sales Person Physician Turf Sales Person 04/19/24 Neon Electrician Relationship Specialty Start Date End Date Jared Evans MD [address] [place] [address] PCP - General 03/06/20 Henok Hernandez PA-C [address] [place] [address] Physician Turf Sales Person Physician Turf Sales Person 04/19/24 Neon Electrician Relationship Specialty Start Date End Date Jared Evans MD [address] [place] [address] PCP - General 03/06/20 Henok Hernandez PA-C [address] [place] [address] Physician Turf Sales Person Physician Turf Sales Person 04/19/24 Neon Electrician Relationship Specialty Start Date End Date Jared Evans MD [address] [place] [address] PCP - General 03/06/20 Henok Hernandez PA-C [address] [place] [address] Physician Turf Sales Person Physician Turf Sales Person 04/19/24 Neon Electrician Relationship Specialty Start Date End Date Jared Evans MD [address] [place] [address] PCP - General 03/06/20 Henok Hernandez PA-C [address] [place] [address] Physician Turf Sales Person Physician Turf Sales Person 04/19/24 Neon Electrician Relationship Specialty Start Date End Date Jared Evans MD [address] [place] [place] [address] PCP - General 03/06/20 Henok Lantigua PA-C [address] [place] [address] Physician Turf Sales Person Physician Turf Sales Person 04/19/24 Neon Electrician Relationship Specialty Start Date End Date Jared Evans MD [address] [place] [address] PCP - General 03/06/20 Henok Lantigua PA-C [address] [place] [address] Physician Turf Sales Person Physician Turf Sales Person 04/19/24 Neon Electrician Relationship Specialty Start Date End Date Jared Evans MD [address] [place] [address] PCP - General Family Medicine 05/18/22 [employer] Relationship Specialty Start Date End Date Jared Evans MD [address] [place] [address] PCP - General Family Medicine 05/18/22 [employer] Electrician Relationship Specialty Start Date End Date Jared Evans MD [facility] [place] [address] PCP - General 03/06/20 Henok Lantigua PA-C [address] [place] [address] Physician Turf Sales Person Physician Turf Sales Person 04/19/24 [employer] Electrician Relationship Specialty Start Date End Date Jared Evans MD [address] [place] [address] PCP - General Family Medicine 05/18/22 Neon Electrician Relationship Specialty Start Date End Date Jared Evans MD [address] [place] [address] PCP - General Family Medicine 05/18/22 Neon Electrician Relationship Specialty Start Date End Date Jared Evans MD [address] [place] [address] PCP - General Family Medicine 05/18/22 Neon Electrician Relationship Specialty Start Date End Date Jared Evans MD [address] [place] [address] PCP - General Family Medicine 05/18/22 Neon Electrician Relationship Specialty Start Date End Date Jared Evans MD [address] [place] [address] PCP - General Family Medicine 05/18/22 Neon Electrician Relationship Specialty Start Date End Date Jared Evans MD [address] [place] [address] PCP - General 03/06/20 Henok Lantigua PA-C [address] [place] [address] Physician Turf Sales Person Physician Turf Sales Person 04/19/24 Neon Electrician Relationship Specialty Start Date End Date Jared Evans MD [address] [place] [address] PCP - General Family Medicine 05/18/22 Neon Electrician Relationship Specialty Start Date End Date Jared Evans MD [address] [place] [address] PCP - General Family Medicine 05/18/22 Neon Electrician Relationship Specialty Start Date End Date Jared Evans MD [address] [place] [address] PCP - General Family Medicine 05/18/22 Neon Electrician Relationship Specialty Start Date End Date Jared Evans MD [address] [place] [address] PCP - General 03/06/20 Henok Lantigua PA-C [address] [place] [address] Physician Turf Sales Person Physician Turf Sales Person 04/19/24 Neon Electrician Relationship Specialty Start Date End Date Jared Evans MD [address] [place] [address] PCP - General 03/06/20 Henok Lantigua PA-C [address] [place] [address] Physician Turf Sales Person Physician Turf Sales Person 04/19/24 Neon Electrician Relationship Specialty Start Date End Date Jared Evans MD [address] [place] [address] PCP - General 03/06/20 Henok Lantigua PA-C [address] [place] [address] Physician Turf Sales Person Physician Turf Sales Person 04/19/[address] [address] Care Home Facility 08/22/24 Neon Electrician Relationship Specialty Start Date End Date Jared vEans MD [address] [place] [address] PCP - General Family Medicine 05/18/22 Neon Electrician Relationship Specialty Start Date End Date Jared Evans MD [address] [place] [address] PCP - General Family Medicine 05/18/22 Team [...] October 08, 2024 End: October 08, 2024 Neon Electrician Relationship Specialty Start Date End Date Jared Evans MD [address] [facility] [place] [address] PCP - General 03/06/20 Henok Lantigua PA-C [address] [address] Physician Turf Sales Person Physician Turf Sales Person 04/19/24 [facility] [address] [place] [address] Care Home Facility 08/22/24 Neon Electrician Relationship Specialty Start Date End Date Jared Evans MD [address] [facility] [place] [address] PCP - General 03/06/20 Henok Lantigua PA-C [address] [address] Physician Turf Sales Person Physician Turf Sales Person 04/19/24 [facility] [address] [place] [address] Care Home Facility 08/22/24 Neon Electrician Relationship Specialty Start Date End Date Jared Evans MD [address] [facility] [place] [address] PCP - General 03/06/20 Henok Lantigua PA-C [address] [address] Physician Turf Sales Person Physician Turf Sales Person 04/19/24 [facility] [address] [place] [address] Care Home Facility 08/22/24 Neon Electrician Relationship Specialty Start Date End Date Jared Evans MD [address] [place] [address] PCP - General 03/06/20 Henok Lantigua PA-C [address] [place] [address] Physician Turf Sales Person Physician Turf Sales Person 04/19/24 [facility] [address] [place] [address] Care Home Facility 08/22/24 Neon Electrician Relationship Specialty Start Date End Date Jared Evans MD [address] [place] [address] PCP - General 03/06/20 Henok Lantigua PA-C [address] [address] Physician Turf Sales Person Physician Turf Sales Person 04/19/24 [facility] [address] [place] [address] Care Home Facility 08/22/24 Neon Electrician Relationship Specialty Start Date End Date Megan Montoya [facility] [place] [phone] PCP - General Internal Medicine 12/13/24 Henok Lantigua PA-C [address] [address] Physician Turf Sales Person Physician Turf Sales Person 04/19/24 [facility] [address] [place] [address] Care Home Facility 08/22/24 Neon Electrician Relationship Specialty Start Date End Date Megan Montoya [address] [place] [phone] PCP - General Internal Medicine 12/13/24 Henok Lantigua PA-C [address] [place] [address] Physician Turf Sales Person Physician Turf Sales Person 04/19/24 Kristyn Blankenship MD [address] [facility] [address] [place] [address] Consulting Physician Vascular Surgery 12/24/24 [facility] [address] [place] [address] Care Home Facility 08/22/24 Neon Electrician Relationship Specialty Start Date End Date Jared Evans MD [address] [place] [address] PCP - General Family Medicine 05/18/22 Neon Electrician Relationship Specialty Start Date End Date Jared Evans MD [address] [place] [address] PCP - General Family Medicine 05/18/22 Neon Electrician Relationship Specialty Start Date End Date Megan Montoya [address] [place] [address] PCP - General Internal Medicine 12/13/24 Henok Lantigua PA-C [address] [place] [address] Physician Turf Sales Person Physician Turf Sales Person 04/19/24 Kristyn Blankenship MD [address] [place] [address] Consulting Physician Vascular Surgery 12/24/24 [facility] [address] [place], [place] [address] Care Home Facility 08/22/24 Neon Electrician Relationship Specialty Start Date End Date LuanneMegan pastrana [address] [place] [phone] PCP - General Internal Medicine 12/13/24 Henok Lantigua PA-C [address] [place] [address] Physician Turf Sales Person Physician Turf Sales Person 04/19/24 Kristyn Blankenship MD [address] [place] [address] Consulting Physician Vascular Surgery 12/24/24 Andre Patel MD [address] [place] [address] Consulting Physician Hematology and Oncology 03/15/25 [facility] [address] [place] [address] Care Home Facility 08/22/24 Scheduled Active and Recently [...] sedation for opioid reversal - MUST notify network liaison provider immediately after first dose, may give [...] 6 hours PRN, nausea, vomiting, Starting on Madia 07/05/24 at 0523, 1st Line. Give IV [...] BE BASED ON THE PRIMARY CLINICAL RECORDS. [employer] provides no warranty or guarantee of the accuracy or completeness of information in this document.
[2025-07-05 11:52] LABS: INR Fingerstick 1.7
== END ==
LOC: OLS.SANC 05:00
PROVIDERS: Visit Provider Internal Medicine
DX: Z79.01 Long term (current) use of anticoagulants (principal)
CPT/HCPCS: 36416; 85610

== ENCOUNTER → 2025-07-12 04:00 | Outpatient (REF) | payer MEDICARE, SELFPAY ==
--- OUTSIDE RECORDS SUMMARY | 2025-07-12 03:51 | XMS RPT_ITS | CCD ---
Author Organization [facility] Care Team Providers Care Project Buyer Name Role Phone Maryuri King Primary Care Provider [phone] Jared Evans Primary Care Provider Pcp, No Primary Care Provider UnavailJared Mckinnon MD Primary Care Provider BERNIE BIRD Admitting Unavailable IWONA CHU Attending Unavailable MING OLSON Consulting Unavailable SIM ELIZABETH Attending Unavailable PRIMO DODD Referring Unavailable Jared Evans MD Primary Care Provider [phone] Jared Evans MD Primary Care Provider [phone] Henok Hernandez PA-C Unavailable Henok Lantigua PA-C [...] Primary Care Unavailable SELF Referring Unavailable EVANS, HOMINY N Primary Care Unavailable SELF Referring Unavailable EVANS, HOMINY N Primary Care Unavailable MAMMO, SAVANA A [...] Facility (20 sources) Amoxicillin Drug Allergy 0 [place] (20 sources) fluticasone / salmeterol Drug Allergy 0 Intolerance [place] (20 sources) Acetaminophen / oxyCODONE; Translations: [OXYCODONE-ACETAM INOPHEN] Drug Allergy 2 Itching [facility] (9 sources) Ampicillin; Translations: [AMPICILLIN] Drug Allergy 4 Unknown [facility] (13 sources) Amoxicillin-Pot Clavulanate Drug Allergy 5 [facility] (1 source) FLUTICASONE PROPION-SALMETERO L; Translations: [FLUTICASONE PROPION-SALMETERO L] Propensity to adverse reactions to drug (disorder) 0 [facility] Repository Medications Current Medications Medication Drug [...] Comment on above: Take 1 tablet by [facility] every 8 hours as needed for pain for up to 3 days. [id number] 200 actuat albuterol 0.09 mg/actuat metered dose [...] the event of a Fluress shortage, administer [place]-Fluor 1 drop into both eyes as directed for applanation tonometry, [facility] MED ORDERS Start: 07-12-2024 End: 07-12-2024 fluorescein-benoxinate 0.3-0 .4 % 1 Drop (FLURESS) bisacodyl 5 mg delayed release oral tablet (4 sources) Stimulant Laxative bisacodyl (Du lcolax) 10 MG suppository Insert into the rectum Daily as needed for constipation. Active take 1 tablet by [facility] every twenty-four hours as needed for constipation [...] Comment on above: Take [address] [facility] every 12 hours for 3 days, THEN [...] Comment on above: Take 1 tablet by [facility] every 12 hours for 7 days. [...] for dry skin. Active lactobacillus rhamnosus gg [id number] unt oral capsule (2 sources) Start: 06-29-20 End: 07-29-19 take 1 capsule by mouth once daily lactobacillus rhamnosus (CULTURELLE) 10 billion cell capsule Take 1 capsule by mouth once daily. 30 capsule 0 06/29/2022 07/29/2022 Active Comment on above: Take [address] [facility] once daily. lidocaine 0.04 mg/mg medicated patch [...] 0059, Administer for dilation [facility] L[facility] Start: 07-16-2024 End: 07-16-2024 PHENYLephrine 2.5 % 1 Drop ( AK-DILATE, KEL-SYNEPHRINE) Start: 07-16-2024 End: 07-16-2024 1 Drop, RIGHT EYE, DIRECT ED, Starting on Tue07/16/24 at 0900, Until Tue07/16/24 at 2059, Administer for dilation PROTECT FROM LIGHT Start: 07-09-2024 End: 07-09-2024 PHENYLephrine 2.5 % 1 Drop ( AK-DILATE, KEL-SYNEPHRINE) polyethylene glycol 3350 09705 mg powder for oral solution (11 sources) [...] lower extremity (HCC) Take as directed by [facility] (90 tablets = 90 [...] lower extremity (HCC) Take as directed by [facility] (45 tablets= 30 day supply) 45 tablet 1 04/27/2024 Active Start: 04-09-2024 7.5 mg, Oral, Once Warfarin, On Maida 04/12/24 at 1700, For 1 dose Start: 04-07-2024 warfarin (Coum jay jay) 5 MG tablet Take 1 tablet (5mg) on 04/13 in the evening Take 1.5 tablets (7.5mg) on 04/14 Take 1 tablet (5mg) on 04/15 Follow up with [facility] pharmacy for further dosing 30 tablet [...] sodium chloride 0.9 % 100 mL IVPB ([place]) (2 sources) Start: End: take 3000 mg intravenously every six hours 3,000 mg, IntraVENous, at 200 mL/hr, Administer over 30 Minutes, Every 6 hours, First dose on Tue08/03/24 at 1200, For 18 doses, [place] bag, Suspected Indication (Select all that apply): [...] Anesthetic Start: 03-07-2020 End: 03-07-2020 lidocaine-EPINEPHrine 1 percent-1:[id number] injection 8 mL ergocalciferol 1.25 mg oral capsule (3 sources) Provitamin D2 Compound End: 07-05-2024 take 1 capsule by mouth every week ergocalciferol (Vitamin D2) 1.25 MG (63412 UT) capsule Take 1.25 mg by mouth [...] Comment on above: Take 1 tablet by [facility] twice daily before meals (0600/1600). prochlorperazine [...] on Tue04/03/24 at 1820 sodium zirconium cyclosilicate 68005 mg powder for oral suspension (2 sources) [...] system] 12-05-2024 Episodic Other aftercare (4 sources) half-way (current) use of anticoagulants; Translations: [half-way (current) use of anticoagulants] Onset: 2 Episodic [...] sources) Long-term current use of anticoagulant; Translations: [half-way (current) use of anticoagulants] Onset: 0 03-07-2020 Episodic Other aftercare (2 sources) Encounter for surgical aftercare following surgery on the circulatory system; Translations: [Encounter for surgical aftercare following surgery on the circulatory system] Onset: 5 Episodic Other aftercare (1 source) Other central processing tech (current) drug therapy; Translations: [Other nursing home (current) drug therapy] Onset: 5 Episodic Other [...] right foot, limited to breakdown of skin ([facility]) 12-05-2024 Unclassified (4 sources) PAD (peripheral artery disease) ([facility]) 12-05-2024 Viral infection (20 sources) Disease caused by 2019-nCoV; Translations: [COVID-19] Onset: 2 06-16-2022 Episodic Results Test Name Value Interpretation Reference Range Facility Protime w/INR Fingerstickon 05-27-2025 INR Coag (PPP) [Relative time] 2.0 {INR} Normal [facility] Comment on above: Result Comment: Crit ical Value > 4.0 Performed By: #### L 300.3900 #### [facility] [address] [place], [place], [id number] Protime Coagsen 22.2 SEC High 11.7-14.9 [facility] Comment on above: Performed By: #### L 300.3900 #### [facility] [address] [place], [address] Prothrombin Time w/INRon INR Coag (PPP) [Relative time] 2.0 {INR} Normal [facility] Comment on above: Order Comment: 104-1 Performed By: #### L 9200.0000 #### [facility] [address] [place], [address] PT Coag (PPP) [Time] 23.2 s High 11.7-14.9 [facility] Comment on above: Order Comment: 104-1 Performed By: #### L 9200.0000 #### [facility] [address] [place], [address] Protime w/INR Fingerstickon 05-09-2025 INR Coag (PPP) [Relative time] 2.4 {INR} Normal [facility] Comment on above: Result Comment: Crit ical Value > 4.0 Performed By: #### L 300.3900 #### [facility] [address] [place], [address] Protime Coagsen 25.6 SEC High 11.7-14.9 [facility] Comment on above: Performed By: #### L 300.3900 #### [facility] [address] [place], [address] Prothrombin Time w/INRon INR Coag (PPP) [Relative time] 4.8 {INR} Invalid Interpretation Code [facility] Comment on above: Order Comment: 104-1 Performed By: #### L 300.3900 #### [facility] [address] [place], [address] PT Coag (PPP) [Time] 46.2 s High 11.7-14.9 [facility] Comment on above: Order Comment: 104-1 Performed By: #### L 300.3900 #### [facility] [address] [place], [address] Protime w/INR Fingerstickon 05-06-2025 INR Coag (PPP) [Relative time] 5.5 {INR} Invalid Interpretation Code [facility] Comment on above: Result Comment: Crit ical Value > 4.0 Performed By: #### L 9200.0000 #### [facility] [address] [place], [address] Protime Coagsen 53.4 SEC High 11.7-14.9 [facility] Comment on above: Performed By: #### L 9200.0000 #### [facility] [address] [place], [address] Prothrombin Time w/INRon INR Coag (PPP) [Relative time] 3.9 {INR} Normal [facility] Comment on above: Order Comment: 104-1 Performed By: #### L 300.3900 #### [facility] [address] [place], [address] PT Coag (PPP) [Time] 39.5 s High 11.7-14.9 [facility] Comment on above: Order Comment: 104-1 Performed By: #### L 300.3900 #### [facility] [address] [place], [address] Protime w/INR Fingerstickon 04-29-2025 INR Coag (PPP) [Relative time] 4.1 {INR} Invalid Interpretation Code [facility] Comment on above: Result Comment: Crit ical Value > 4.0 Performed By: #### L 300.3900 #### [facility] [address] [place], [address] Protime Coagsen 41.7 SEC High 11.7-14.9 [facility] Comment on above: Performed By: #### L 300.3900 #### [facility] [address] [place], [address] Basic Metabolic Profile (BMP )on 04-04-2025 BUN/CRE 19.9 RATIO Normal 10-20 [facility] Comment on above: Order Comment: 104-1 Performed By: #### L 300.3900 #### [facility] [address] [place], [address] Calcium [Mass/Vol] 8.9 mg/dL Normal 7.6-11.0 [facility] Comment on above: Order Comment: 104-1 Performed By: #### L 300.3900 #### [facility] [address] [place], [address] Chloride [Moles/Vol] 109 mmol/L High 98-108 [facility] Comment on above: Order Comment: 104-1 Performed By: #### L 300.3900 #### [facility] [address] [place], [address] CO2 [Moles/Vol] 20.4 mmol/L Low 21.0-32.0 [facility] Comment on above: Order Comment: 104-1 Performed By: #### L 300.3900 #### [facility] [address] [place], [address] Creatinine [Mass/Vol] 0.98 mg/dL Normal 0.70-1.20 [facility] Comment on above: Order Comment: 104-1 Performed By: #### L 300.3900 #### [facility] [address] [place], [address] GAP 10 Normal 5-15 [facility] Comment on above: Order Comment: 104-1 Performed By: #### L 300.3900 #### [facility] [address] [place], [address] GFR/1.73 sq M.predicted among non-blacks MDRD (S/P/Bld) [Vol rate/Area] 56 mL/min/{1.73_m2} Low >60 [facility] Comment on above: Order Comment: 104-1 Result Comment: mL/m in/1.73m2 CKD-EPI Creatinine Equation (2020) Performed By: #### L 300.3900 #### [facility] [address] [place], [address] Glucose [Mass/Vol] 87 mg/dL Normal 70-99 [facility] Comment on above: Order Comment: 104-1 Performed By: #### L 300.3900 #### [facility] [address] [place], [address] Potassium [Moles/Vol] 5.0 mmol/L Normal 3.3-5.1 [facility] Comment on above: Order Comment: 104-1 Performed By: #### L 300.3900 #### [facility] [address] [place], [address] Sodium [Moles/Vol] 139 mmol/L Normal 133-145 [facility] Comment on above: Order Comment: 104-1 Performed By: #### L 300.3900 #### [facility] [address] [place], [address] Urea nitrogen [Mass/Vol] 20 mg/dL High 4-19 [facility] Comment on above: Order Comment: 104-1 Performed By: #### L 300.3900 #### [facility] [address] [place], [address] CBC-Complete Blood Cnt No Di ffon 04-04-2025 Erythrocyte distribution width (RBC) [Ratio] 13.6 % Normal 11.6-14.6 [facility] Comment on above: Order Comment: 104-1 Performed By: #### L 300.3900 #### [facility] [address] [place], [address] Hematocrit (Bld) [Volume fraction] 32.6 % Low 37-47 [facility] Comment on above: Order Comment: 104-1 Performed By: #### L 300.3900 #### [facility] [address] [place], [address] Hemoglobin (Bld) [Mass/Vol] 10.7 g/dL Low 12.0-15.0 [facility] Comment on above: Order Comment: 104-1 Performed By: #### L 300.3900 #### [facility] [address] [place], [address] MCH (RBC) [Entitic mass] 30.0 pg Normal 27.0-32.0 [facility] Comment on above: Order Comment: 104-1 Performed By: #### L 300.3900 #### [facility] [address] [place], [address] MCHC (RBC) [Mass/Vol] 32.8 g/dL Normal 32-36 [facility] Comment on above: Order Comment: 104-1 Performed By: #### L 300.3900 #### [facility] [address] [place], [address] MCV (RBC) [Entitic vol] 91.3 fL Normal 81-99 [facility] Comment on above: Order Comment: 104-1 Performed By: #### L 300.3900 #### [facility] [address] [place], [address] Platelet mean volume (Bld) [Entitic vol] 9.8 fL Normal 6.2-12.0 [facility] Comment on above: Order Comment: 104-1 Performed By: #### L 300.3900 #### [facility] [address] [place], [address] Platelets (Bld) [#/Vol] 259 10*3/uL Normal 150-450 [facility] Comment on above: Order Comment: 104-1 Performed By: #### L 300.3900 #### [facility] [address] [place], [address] RBC (Bld) [#/Vol] 3.57 10*6/uL Low 4.2-5.4 [facility] Comment on above: Order Comment: 104-1 Performed By: #### L 300.3900 #### [facility] [address] [place], [address] RDW SD 46.1 fl High 35.1-43.9 [facility] Comment on above: Order Comment: 104-1 Performed By: #### L 300.3900 #### [facility] [address] [place], [address] WBC (Bld) [#/Vol] 4.2 10*3/uL Low 4.4-11.0 [facility] Comment on above: Order Comment: 104-1 Performed By: #### L 300.3900 #### [facility] [address] [place], [address] Potassiumon 04-02-2025 Potassium [Moles/Vol] 5.3 mmol/L High 3.3-5.1 [facility] Comment on above: Order Comment: 104-1 Performed By: #### L 300.3900 #### [facility] [address] [place], [address] Basic Metabolic Profile (BMP )on 03-28-2025 BUN/CRE 17.4 RATIO Normal 10-20 [facility] Comment on above: Order Comment: 104.1 Performed By: #### L 9200.0000 #### [facility] [address] [place], [address] Calcium [Mass/Vol] 9.0 mg/dL Normal 7.6-11.0 [facility] Comment on above: Order Comment: 104.1 Performed By: #### L 9200.0000 #### [facility] [address] [place], [address] Chloride [Moles/Vol] 108 mmol/L Normal 98-108 [facility] Comment on above: Order Comment: 104.1 Performed By: #### L 9200.0000 #### [facility] [address] [place], [address] CO2 [Moles/Vol] 21.1 mmol/L Normal 21.0-32.0 [facility] Comment on above: Order Comment: 104.1 Performed By: #### L 9200.0000 #### [facility] [address] [place], [address] Creatinine [Mass/Vol] 0.99 mg/dL Normal 0.70-1.20 [facility] Comment on above: Order Comment: 104.1 Performed By: #### L 9200.0000 #### [facility] [address] [place], [address] GAP 9 Normal 5-15 [facility] Comment on above: Order Comment: 104.1 Performed By: #### L 9200.0000 #### [facility] [address] [place], [address] GFR/1.73 sq M.predicted among non-blacks MDRD (S/P/Bld) [Vol rate/Area] 56 mL/min/{1.73_m2} Low >60 [facility] Comment on above: Order Comment: 104.1 Result Comment: mL/m in/1.73m2 CKD-EPI Creatinine Equation (2020) Performed By: #### L 9200.0000 #### [facility] [address] [place], [address] Glucose [Mass/Vol] 88 mg/dL Normal 70-99 [facility] Comment on above: Order Comment: 104.1 Performed By: #### L 9200.0000 #### [facility] [address] [place], [address] Potassium [Moles/Vol] 5.2 mmol/L High 3.3-5.1 [facility] Comment on above: Order Comment: 104.1 Performed By: #### L 9200.0000 #### [facility] [address] [place], [address] Sodium [Moles/Vol] 138 mmol/L Normal 133-145 [facility] Comment on above: Order Comment: 104.1 Performed By: #### L 9200.0000 #### [facility] [address] [place], [address] Urea nitrogen [Mass/Vol] 17 mg/dL Normal 4-19 [facility] Comment on above: Order Comment: 104.1 Performed By: #### L 9200.0000 #### [facility] [address] [place], [address] CBC-Complete Blood Cnt No Di ffon 03-28-2025 Erythrocyte distribution width (RBC) [Ratio] 13.7 % Normal 11.6-14.6 [facility] Comment on above: Order Comment: 104.1 Performed By: #### L 9200.0000 #### [facility] [address] [place], [address] Hematocrit (Bld) [Volume fraction] 31.6 % Low 37-47 [facility] Comment on above: Order Comment: 104.1 Performed By: #### L 9200.0000 #### [facility] [address] [place], [address] Hemoglobin (Bld) [Mass/Vol] 10.3 g/dL Low 12.0-15.0 [facility] Comment on above: Order Comment: 104.1 Performed By: #### L 9200.0000 #### [facility] [address] [place], [address] MCH (RBC) [Entitic mass] 29.7 pg Normal 27.0-32.0 [facility] Comment on above: Order Comment: 104.1 Performed By: #### L 9200.0000 #### [facility] [address] [place], [address] MCHC (RBC) [Mass/Vol] 32.6 g/dL Normal 32-36 [facility] Comment on above: Order Comment: 104.1 Performed By: #### L 9200.0000 #### [facility] [address] [place], [address] MCV (RBC) [Entitic vol] 91.1 fL Normal 81-99 [facility] Comment on above: Order Comment: 104.1 Performed By: #### L 9200.0000 #### [facility] [address] [place], [address] Platelet mean volume (Bld) [Entitic vol] 10.0 fL Normal 6.2-12.0 [facility] Comment on above: Order Comment: 104.1 Performed By: #### L 9200.0000 #### [facility] [address] [place], [address] Platelets (Bld) [#/Vol] 265 10*3/uL Normal 150-450 [facility] Comment on above: Order Comment: 104.1 Performed By: #### L 9200.0000 #### [facility] [address] [place], [address] RBC (Bld) [#/Vol] 3.47 10*6/uL Low 4.2-5.4 [facility] Comment on above: Order Comment: 104.1 Performed By: #### L 9200.0000 #### [facility] [address] [place], [address] RDW SD 45.8 fl High 35.1-43.9 [facility] Comment on above: Order Comment: 104.1 Performed By: #### L 9200.0000 #### [facility] [address] [place], [address] WBC (Bld) [#/Vol] 5.3 10*3/uL Normal 4.4-11.0 [facility] Comment on above: Order Comment: 104.1 Performed By: #### L 9200.0000 #### [facility] [address] [place], [address] Prothrombin Time w/INRon INR Coag (PPP) [Relative time] 2.2 {INR} Normal [facility] Comment on above: Order Comment: 104.1 Performed By: #### L 9200.0000 #### [facility] [address] [place], [address] PT Coag (PPP) [Time] 24.5 s High 11.7-14.9 [facility] Comment on above: Order Comment: 104.1 Performed By: #### L 9200.0000 #### [facility] [address] [place], [address] Progress Noteon 03-15-2025 Progress Note Normal [facility] Protime w/INR Fingerstickon 03-04-2025 INR Coag (PPP) [Relative time] 2.3 {INR} Normal [facility] Comment on above: Result Comment: Crit ical Value > 4.0 Performed By: #### L 9200.0000 #### [facility] [address] [place], [address] Protime Coagsen 24.7 SEC High 11.7-14.9 [facility] Comment on above: Performed By: #### L 9200.0000 #### [facility] [address] [place], [address] 36on 02-27-2025 36 Letter mailed to patient [facility] 36on 02-26-2025 36 Normal [facility] Protime w/INR Fingerstickon 02-25-2025 INR Coag (PPP) [Relative time] 2.1 {INR} Normal [facility] Comment on above: Result Comment: Crit ical Value > 4.0 Performed By: #### L 9200.0000 #### [facility] [address] [place], [address] Protime Coagsen 23.3 SEC High 11.7-14.9 [facility] Comment on above: Performed By: #### L 9200.0000 #### [facility] [address] [place], [address] Basic Metabolic Profile (BMP )on 02-18-2025 BUN/CRE 22.7 RATIO High 10-20 [facility] Comment on above: Performed By: #### L 9200.0000 #### [facility] [address] [place], [address] Calcium [Mass/Vol] 9.2 mg/dL Normal 7.6-11.0 [facility] Comment on above: Performed By: #### L 9200.0000 #### [facility] [address] [place], [address] Chloride [Moles/Vol] 108 mmol/L Normal 98-108 [facility] Comment on above: Performed By: #### L 9200.0000 #### [facility] [address] [place], [address] CO2 [Moles/Vol] 21.6 mmol/L Normal 21.0-32.0 [facility] Comment on above: Performed By: #### L 9200.0000 #### [facility] [address] [place], [address] Creatinine [Mass/Vol] 1.03 mg/dL Normal 0.70-1.20 [facility] Comment on above: Performed By: #### L 9200.0000 #### [facility] [address] [place], [address] GAP 9 Normal 5-15 [facility] Comment on above: Performed By: #### L 9200.0000 #### [facility] [address] [place], [address] GFR/1.73 sq M.predicted among non-blacks MDRD (S/P/Bld) [Vol rate/Area] 53 mL/min/{1.73_m2} Low >60 [facility] Comment on above: Result Comment: mL/m in/1.73m2 CKD-EPI Creatinine Equation (2020) Performed By: #### L 9200.0000 #### [facility] [address] [place], [address] Glucose [Mass/Vol] 91 mg/dL Normal 70-99 [facility] Comment on above: Performed By: #### L 9200.0000 #### [facility] [address] [place], [address] Potassium [Moles/Vol] 5.2 mmol/L High 3.3-5.1 [facility] Comment on above: Performed By: #### L 9200.0000 #### [facility] [address] [place], [address] Sodium [Moles/Vol] 138 mmol/L Normal 133-145 [facility] Comment on above: Performed By: #### L 9200.0000 #### [facility] [address] [place], [address] Urea nitrogen [Mass/Vol] 23 mg/dL High 4-19 [facility] Comment on above: Performed By: #### L 9200.0000 #### [facility] [address] [place], [address] CBC-Complete Blood Cnt No Di ffon 02-18-2025 Erythrocyte distribution width (RBC) [Ratio] 14.0 % Normal 11.6-14.6 [facility] Comment on above: Performed By: #### L 9200.0000 #### [facility] [address] [place], [address] Hematocrit (Bld) [Volume fraction] 31.6 % Low 37-47 [facility] Comment on above: Performed By: #### L 9200.0000 #### [facility] [address] [place], [address] Hemoglobin (Bld) [Mass/Vol] 10.2 g/dL Low 12.0-15.0 [facility] Comment on above: Performed By: #### L 9200.0000 #### [facility] [address] [place], [address] MCH (RBC) [Entitic mass] 30.0 pg Normal 27.0-32.0 [facility] Comment on above: Performed By: #### L 9200.0000 #### [facility] [address] [place], [address] MCHC (RBC) [Mass/Vol] 32.3 g/dL Normal 32-36 [facility] Comment on above: Performed By: #### L 9200.0000 #### [facility] [address] [place], [address] MCV (RBC) [Entitic vol] 92.9 fL Normal 81-99 [facility] Comment on above: Performed By: #### L 9200.0000 #### [facility] [address] [place], [address] Platelet mean volume (Bld) [Entitic vol] 9.9 fL Normal 6.2-12.0 [facility] Comment on above: Performed By: #### L 9200.0000 #### [facility] [address] [place], [address] Platelets (Bld) [#/Vol] 257 10*3/uL Normal 150-450 [facility] Comment on above: Performed By: #### L 9200.0000 #### [facility] [address] [place], [address] RBC (Bld) [#/Vol] 3.40 10*6/uL Low 4.2-5.4 [facility] Comment on above: Performed By: #### L 9200.0000 #### [facility] [address] [place], [address] RDW SD 47.2 fl High 35.1-43.9 [facility] Comment on above: Performed By: #### L 9200.0000 #### [facility] [address] [place], [address] WBC (Bld) [#/Vol] 4.3 10*3/uL Low 4.4-11.0 [facility] Comment on above: Performed By: #### L 9200.0000 #### [facility] [address] [place], [address] Prothrombin Time w/INRon INR Coag (PPP) [Relative time] 2.5 {INR} Normal [facility] Comment on above: Performed By: #### L 9200.0000 #### [facility] [address] [place], [address] PT Coag (PPP) [Time] 27.6 s High 11.7-14.9 [facility] Comment on above: Performed By: #### L 9200.0000 #### [facility] [address] [place], [address] Basic Metabolic Profile (BMP )on 02-15-2025 BUN/CRE 18.4 RATIO Normal 10-20 [facility] Comment on above: Order Comment: 104.1 Performed By: #### L 9200.0000 #### [facility] [address] [place], [address] Calcium [Mass/Vol] 9.4 mg/dL Normal 7.6-11.0 [facility] Comment on above: Order Comment: 104.1 Performed By: #### L 9200.0000 #### [facility] [address] [place], [address] Chloride [Moles/Vol] 107 mmol/L Normal 98-108 [facility] Comment on above: Order Comment: 104.1 Performed By: #### L 9200.0000 #### [facility] [address] [place], [address] CO2 [Moles/Vol] 16.1 mmol/L Low 21.0-32.0 [facility] Comment on above: Order Comment: 104.1 Performed By: #### L 9200.0000 #### [facility] [address] [place], [address] Creatinine [Mass/Vol] 1.12 mg/dL Normal 0.70-1.20 [facility] Comment on above: Order Comment: 104.1 Performed By: #### L 9200.0000 #### [facility] [address] [place], [address] GAP 11 Normal 5-15 [facility] Comment on above: Order Comment: 104.1 Performed By: #### L 9200.0000 #### [facility] [address] [place], [address] GFR/1.73 sq M.predicted among non-blacks MDRD (S/P/Bld) [Vol rate/Area] 48 mL/min/{1.73_m2} Low >60 [facility] Comment on above: Order Comment: 104.1 Result Comment: mL/m in/1.73m2 CKD-EPI Creatinine Equation (2020) Performed By: #### L 9200.0000 #### [facility] [address] [place], [address] Glucose [Mass/Vol] 90 mg/dL Normal 70-99 [facility] Comment on above: Order Comment: 104.1 Performed By: #### L 9200.0000 #### [facility] [address] [place], [address] Potassium [Moles/Vol] 6.1 mmol/L Invalid Interpretation Code 3.3-5.1 [facility] Comment on above: Order Comment: 104.1 Result Comment: Crit ical result called 02/15/2025-09:30 by Cirilo Bird to Shannen Christianson. Hemolysis present, Results??could be affected. ?? Critical Result(s) Called at: by:??Results read back by same. Performed By: #### L 9200.0000 #### [facility] [address] [place], [address] Sodium [Moles/Vol] 134 mmol/L Normal 133-145 [facility] Comment on above: Order Comment: 104.1 Performed By: #### L 9200.0000 #### [facility] [address] [place], [address] Urea nitrogen [Mass/Vol] 21 mg/dL High 4-19 [facility] Comment on above: Order Comment: 104.1 Performed By: #### L 9200.0000 #### [facility] [address] [place], [address] CBC-Complete Blood Cnt No Di ffon 02-15-2025 Erythrocyte distribution width (RBC) [Ratio] 13.8 % Normal 11.6-14.6 [facility] Comment on above: Order Comment: 104.1 Performed By: #### L 500.2500, L100.0500 #### [facility] [address] [place], [address] Hematocrit (Bld) [Volume fraction] 34.2 % Low 37-47 [facility] Comment on above: Order Comment: 104.1 Performed By: #### L 500.2500, L100.0500 #### [facility] [address] [place], [address] Hemoglobin (Bld) [Mass/Vol] 10.8 g/dL Low 12.0-15.0 [facility] Comment on above: Order Comment: 104.1 Performed By: #### L 500.2500, L100.0500 #### [facility] [address] [place], [address] MCH (RBC) [Entitic mass] 30.4 pg Normal 27.0-32.0 [facility] Comment on above: Order Comment: 104.1 Performed By: #### L 500.2500, L100.0500 #### [facility] [address] [place], [address] MCHC (RBC) [Mass/Vol] 31.6 g/dL Low 32-36 [facility] Comment on above: Order Comment: 104.1 Performed By: #### L 500.2500, L100.0500 #### [facility] [address] [place], [address] MCV (RBC) [Entitic vol] 96.3 fL Normal 81-99 [facility] Comment on above: Order Comment: 104.1 Performed By: #### L 500.2500, L100.0500 #### [facility] [address] [place], [address] Platelet mean volume (Bld) [Entitic vol] 10.4 fL Normal 6.2-12.0 [facility] Comment on above: Order Comment: 104.1 Performed By: #### L 500.2500, L100.0500 #### [facility] [address] [place], [address] Platelets (Bld) [#/Vol] 239 10*3/uL Normal 150-450 [facility] Comment on above: Order Comment: 104.1 Performed By: #### L 500.2500, L100.0500 #### [facility] [address] [place], [address] RBC (Bld) [#/Vol] 3.55 10*6/uL Low 4.2-5.4 [facility] Comment on above: Order Comment: 104.1 Performed By: #### L 500.2500, L100.0500 #### [facility] [address] [place], [address] RDW SD 49.1 fl High 35.1-43.9 [facility] Comment on above: Order Comment: 104.1 Performed By: #### L 500.2500, L100.0500 #### [facility] [address] [place], [address] WBC (Bld) [#/Vol] 4.3 10*3/uL Low 4.4-11.0 [facility] Comment on above: Order Comment: 104.1 Performed By: #### L 500.2500, L100.0500 #### [facility] [address] [place], [address] Prothrombin Time w/INRon INR Normal [facility] Comment on above: Order Comment: 104-1 Result Comment: FING ERSTICK Performed By: #### L 9200.0000 #### [facility] [address] [place], [address] PROTIME Normal 11.7-14.9 [facility] Comment on above: Order Comment: 104-1 Result Comment: FING ERSTICK Performed By: #### L 9200.0000 #### [facility] [address] [place], [address] Protime w/INR Fingerstickon 02-11-2025 INR Coag (PPP) [Relative time] 2.5 {INR} Normal [facility] Comment on above: Result Comment: Crit ical Value > 4.0 Performed By: #### L 9200.0000 #### [facility] [address] [place], [address] Protime Coagsen 26.4 SEC High 11.7-14.9 [facility] Comment on above: Performed By: #### L 9200.0000 #### [facility] [address] [place], [address] Protime w/INR Fingerstickon 02-07-2025 INR Coag (PPP) [Relative time] 2.2 {INR} Normal [facility] Comment on above: Result Comment: Crit ical Value > 4.0 Performed By: #### L 9200.0000 #### [facility] [address] [place], [address] Protime Coagsen 23.6 SEC High 11.7-14.9 [facility] Comment on above: Performed By: #### L 9200.0000 #### [facility] [address] [place], [address] Protime w/INR Fingerstickon 02-04-2025 INR Coag (PPP) [Relative time] 3.6 {INR} Normal [facility] Comment on above: Result Comment: Crit ical Value > 4.0 Performed By: #### L 9200.0000 #### [facility] [address] [place], [address] Protime Coagsen 36.4 SEC High 11.7-14.9 [facility] Comment on above: Performed By: #### L 9200.0000 #### [facility] [address] [place], [address] Prothrombin Time w/INRon INR Coag (PPP) [Relative time] 3.3 {INR} Normal [facility] Comment on above: Order Comment: 104-1 Performed By: #### L 300.3900 #### [facility] [address] [place], [address] PT Coag (PPP) [Time] 34.2 s High 11.7-14.9 [facility] Comment on above: Order Comment: 104-1 Performed By: #### L 300.3900 #### [facility] [address] [place], [address] Protime w/INR Fingerstickon 01-28-2025 INR Coag (PPP) [Relative time] 2.8 {INR} Normal [facility] Comment on above: Result Comment: Crit ical Value > 4.0 Performed By: #### L 9200.0000 #### [facility] [address] [place], [address] Protime Coagsen 29.1 SEC High 11.7-14.9 [facility] Comment on above: Performed By: #### L 9200.0000 #### [facility] [address] [place], [address] Protime w/INR Fingerstickon 01-25-2025 INR Coag (PPP) [Relative time] 3.4 {INR} Normal [facility] Comment on above: Result Comment: Crit ical Value > 4.0 Performed By: #### L 9200.0000 #### [facility] [address] [place], [address] Protime Coagsen 34.5 SEC High 11.7-14.9 [facility] Comment on above: Performed By: #### L 9200.0000 #### [facility] [address] [place], [address] Prothrombin Time w/INRon INR Coag (PPP) [Relative time] 2.8 {INR} Normal [facility] Comment on above: Order Comment: 104- Performed By: #### L 300.3900 #### [facility] [address] [place], [address] PT Coag (PPP) [Time] 30.5 s High 11.7-14.9 [facility] Comment on above: Order Comment: 104-1 Performed By: #### L 300.3900 #### [facility] [address] [place], [address] Prothrombin Time w/INRon INR Coag (PPP) [Relative time] 2.5 {INR} Normal [facility] Comment on above: Order Comment: 104.1 Performed By: #### L 9200.0000 #### [facility] [address] [place], [address] PT Coag (PPP) [Time] 27.1 s High 11.7-14.9 [facility] Comment on above: Order Comment: 104.1 Performed By: #### L 9200.0000 #### [facility] [address] [place], [address] Prothrombin Time w/INRon INR Coag (PPP) [Relative time] 2.4 {INR} Normal [facility] Comment on above: Order Comment: DID F INGERSTICK TWICE, BOTH TIMES GOT A 'NO CLOT DETECTED'MESSAGE, SO VA A VENOUS SAMPLE. SPOKE WITH NURSE RIVKA Performed By: #### L 9200.0000 #### [facility] [address] [place], [address] PT Coag (PPP) [Time] 26.9 s High 11.7-14.9 [facility] Comment on above: Order Comment: DID F INGERSTICK TWICE, BOTH TIMES GOT A 'NO CLOT DETECTED'MESSAGE, SO VA A VENOUS SAMPLE. SPOKE WITH NURSE RIVKA Performed By: #### L 9200.0000 #### [facility] [address] [place], [address] Protime w/INR Fingerstickon 01-17-2025 INR Coag (PPP) [Relative time] 1.9 {INR} Normal [facility] Comment on above: Result Comment: Crit ical Value > 4.0 Performed By: #### L 9200.0000 #### [facility] [address] [place], [address] Protime Coagsen 20.8 SEC High 11.7-14.9 [facility] Comment on above: Performed By: #### L 9200.0000 #### [facility] [address] [place], [address] Protime w/INR Fingerstickon 01-16-2025 INR Coag (PPP) [Relative time] 1.5 {INR} Normal [facility] Comment on above: Result Comment: Crit ical Value > 4.0 Performed By: #### L 9200.0000 #### [facility] [address] [place], [address] Protime Coagsen 17.2 SEC High 11.7-14.9 [facility] Comment on above: Performed By: #### L 9200.0000 #### [facility] [address] [place], [address] Prothrombin Time w/INRon INR Coag (PPP) [Relative time] 1.2 {INR} Normal [facility] Comment on above: Performed By: #### L 9200.0000 #### [facility] [address] [place], [address] PT Coag (PPP) [Time] 15.4 s High 11.7-14.9 [facility] Comment on above: Performed By: #### L 9200.0000 #### [facility] [address] [place], [address] 36on 01-08-2025 36 Normal [facility] Basic Metabolic Profile (BMP )on 01-07-2025 BUN/CRE 17.7 RATIO Normal 10-20 [facility] Comment on above: Order Comment: 104.1 Performed By: #### L 9200.0000 #### [facility] [address] [place], [address] Calcium [Mass/Vol] 9.1 mg/dL Normal 7.6-11.0 [facility] Comment on above: Order Comment: 104.1 Performed By: #### L 9200.0000 #### [facility] [address] [place], [address] Chloride [Moles/Vol] 109 mmol/L High 98-108 [facility] Comment on above: Order Comment: 104.1 Performed By: #### L 9200.0000 #### [facility] [address] [place], [address] CO2 [Moles/Vol] 19.7 mmol/L Low 21.0-32.0 [facility] Comment on above: Order Comment: 104.1 Performed By: #### L 9200.0000 #### [facility] [address] [place], [address] Creatinine [Mass/Vol] 1.15 mg/dL Normal 0.70-1.20 [facility] Comment on above: Order Comment: 104.1 Performed By: #### L 9200.0000 #### [facility] [address] [place], [address] GAP 10 Normal 5-15 [facility] Comment on above: Order Comment: 104.1 Performed By: #### L 9200.0000 #### [facility] [address] [place], [address] GFR/1.73 sq M.predicted among non-blacks MDRD (S/P/Bld) [Vol rate/Area] 47 mL/min/{1.73_m2} Low >60 [facility] Comment on above: Order Comment: 104.1 Result Comment: mL/m in/1.73m2 CKD-EPI Creatinine Equation (2020) Performed By: #### L 9200.0000 #### [facility] [address] [place], [address] Glucose [Mass/Vol] 87 mg/dL Normal 70-99 [facility] Comment on above: Order Comment: 104.1 Performed By: #### L 9200.0000 #### [facility] [address] [place], [address] Potassium [Moles/Vol] 5.0 mmol/L Normal 3.3-5.1 [facility] Comment on above: Order Comment: 104.1 Performed By: #### L 9200.0000 #### [facility] [address] [place], [address] Sodium [Moles/Vol] 138 mmol/L Normal 133-145 [facility] Comment on above: Order Comment: 104.1 Performed By: #### L 9200.0000 #### [facility] [address] [place], [address] Urea nitrogen [Mass/Vol] 20 mg/dL High 4-19 [facility] Comment on above: Order Comment: 104.1 Performed By: #### L 9200.0000 #### [facility] [address] [place], [address] CBC-Complete Blood Cnt No Di ffon 01-07-2025 Erythrocyte distribution width (RBC) [Ratio] 16.5 % High 11.6-14.6 [facility] Comment on above: Order Comment: 104.1 Performed By: #### L 9200.0000 #### [facility] [address] [place], [address] Hematocrit (Bld) [Volume fraction] 30.4 % Low 37-47 [facility] Comment on above: Order Comment: 104.1 Performed By: #### L 9200.0000 #### [facility] [address] [place], [address] Hemoglobin (Bld) [Mass/Vol] 9.8 g/dL Low 12.0-15.0 [facility] Comment on above: Order Comment: 104.1 Performed By: #### L 9200.0000 #### [facility] [address] [place], [address] MCH (RBC) [Entitic mass] 29.9 pg Normal 27.0-32.0 [facility] Comment on above: Order Comment: 104.1 Performed By: #### L 9200.0000 #### [facility] [address] [place], [address] MCHC (RBC) [Mass/Vol] 32.2 g/dL Normal 32-36 [facility] Comment on above: Order Comment: 104.1 Performed By: #### L 9200.0000 #### [facility] [address] [place], [address] MCV (RBC) [Entitic vol] 92.7 fL Normal 81-99 [facility] Comment on above: Order Comment: 104.1 Performed By: #### L 9200.0000 #### [facility] [address] [place], [address] Platelet mean volume (Bld) [Entitic vol] 10.0 fL Normal 6.2-12.0 [facility] Comment on above: Order Comment: 104.1 Performed By: #### L 9200.0000 #### [facility] [address] [place], [address] Platelets (Bld) [#/Vol] 254 10*3/uL Normal 150-450 [facility] Comment on above: Order Comment: 104.1 Performed By: #### L 9200.0000 #### [facility] [address] [place], [address] RBC (Bld) [#/Vol] 3.28 10*6/uL Low 4.2-5.4 [facility] Comment on above: Order Comment: 104.1 Performed By: #### L 9200.0000 #### [facility] [address] [place], [address] RDW SD 55.9 fl High 35.1-43.9 [facility] Comment on above: Order Comment: 104.1 Performed By: #### L 9200.0000 #### [facility] [address] [place], [address] WBC (Bld) [#/Vol] 4.5 10*3/uL Normal 4.4-11.0 [facility] Comment on above: Order Comment: 104.1 Performed By: #### L 9200.0000 #### [facility] [address] [place], [address] 36on 01-04-2025 36 Normal [facility] 36 Normal [facility] Progress Noteon 12-24-2024 Progress Note Normal [facility] No Panel Informationon 12-13 Left MICHELLE 0.71 [facility] Left arm BP 121 mmHg [facility] Left Dist Outflow EDV 6.5 cm/s [facility] Left Dist Outflow PSV 51.5 cm/s [facility] Left dorsalis pedis BP 67 mmHg [facility] Left Graft 1 Proximal Popliteal Stent [facility] Left Inflow Artery EDV 8.5 cm/s [facility] Left Inflow Artery PSV 46.5 cm/s [facility] Left Mid Outflow EDV 6.5 cm/s [facility] Left Mid Outflow PSV 58.1 cm/s [facility] Left Outflow Vessel EDV 9.8 cm/s S [facility] Left Outflow Vessel PSV 89.9 cm/s S [facility] Left posterior tibial 94 mmHg [facility] Left Prox Outflow EDV 6.5 cm/s [facility] Left Prox Outflow PSV 51.5 cm/s [facility] Right MICHELLE 0.96 [facility] Right arm BP 133 mmHg [facility] Right YARITZA dist PSV 53.6 cm/s [facility] Right SKIVER MACHINE OPERATOR dist PSV 144.6 cm/s [facility] SKIVER MACHINE OPERATOR mid AP diameter 0.92 cm [facility] Right SKIVER MACHINE OPERATOR mid TR diameter 0.89 cm [facility] Right SKIVER MACHINE OPERATOR prox PSV 133.7 cm/s [facility] Right Dist Outflow EDV 0 cm/s [facility] Right Dist Outflow PSV 45.3 cm/s [facility] Right dorsalis pedis BP 107 mmHg [facility] Right EIA dist PSV 144.6 cm/s [facility] Right Graft 1 Distal SFA Stent [facility] Right Inflow Artery EDV 4.6 cm/s S [facility] Right Inflow Artery PSV 100.7 cm/s S [facility] Right Mid Outflow EDV 2.3 [...] popliteal artery mid TR diameter 0.6 cm [facility] Right posterior tibial 128 mmHg [facility] Right Prox Outflow EDV 0 cm/s [facility] Right Prox Outflow PSV 68.6 cm/s [facility] Right BINDING NICKER dist PSV 48.1 cm/s [facility] Right SFA dist PSV 100.7 cm/s [facility] Right SFA distal AP diameter 0.71 [...] CPACS Progress Noteon 12-05-2024 Progress Note Normal [facility] 36on 11-23-2024 36 Normal [facility] 36 Normal [facility] 36 Normal [facility] [id number] 11-22-2024 [id number] Normal [facility] Anesthesia Noteon 11-22-2024 Anesthesia Note Normal [facility] No Panel Informationon 11-22 There is no interpretation needed for this exam. IMAGING Nursing Noteon 11-22-2024 Nursing Note Patient arrived on unit. Name and date verified. Attached to monitors. Vital signs stable. Normal [facility] Op Noteon 11-22-2024 Op Note Normal [facility] Progress Noteon 11-22-2024 Progress Note POA called to bedsid e and discharge instructions reviewed. Groin site remains intact and LE distal pulses unchanged via assessment with doppler. 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 Made aware of patient's orders to lay flat until 1325. Daughter in law stated that she will call care facility later to make arrangements for transportation back. Normal [facility] Anesthesia Noteon 11-21-2024 Anesthesia Note Normal [facility] Basic Metabolic Profile (BMP )on 11-15-2024 BUN/CRE 18.3 RATIO Normal - [facility] Comment on above: Order Comment: 104-1 Performed By: #### L 9200.0000 #### [facility] [place], [address] Calcium [Mass/Vol] 9.0 mg/dL Normal 7.6-11.0 [facility] Comment on above: Order Comment: 104-1 Performed By: #### L 9200.0000 #### [facility] [address] [place], [address] Chloride [Moles/Vol] 108 mmol/L Normal 98-108 [facility] Comment on above: Order Comment: 104-1 Performed By: #### L 9200.0000 #### [facility] [address] [place], [address] CO2 [Moles/Vol] 22.1 mmol/L Normal 21.0-32.0 [facility] Comment on above: Order Comment: 104-1 Performed By: #### L 9200.0000 #### [facility] [address] [place], [address] Creatinine [Mass/Vol] 1.03 mg/dL Normal 0.70-1.20 [facility] Comment on above: Order Comment: 104-1 Performed By: #### L 9200.0000 #### [facility] [address] [place], [address] GAP 9 Normal 5-15 [facility] Comment on above: Order Comment: 104-1 Performed By: #### L 9200.0000 #### [facility] [address] [place], [address] GFR/1.73 sq M.predicted among non-blacks MDRD (S/P/Bld) [Vol rate/Area] 53 mL/min/{1.73_m2} Low >60 [facility] Comment on above: Order Comment: 104-1 Result Comment: mL/m in/1.73m2 CKD-EPI Creatinine Equation (2020) Performed By: #### L 9200.0000 #### [facility] [address] [place], [address] Glucose [Mass/Vol] 91 mg/dL Normal 70-99 [facility] Comment on above: Order Comment: 104-1 Performed By: #### L 9200.0000 #### [facility] [address] [place], [address] Potassium [Moles/Vol] 4.8 mmol/L Normal 3.3-5.1 [facility] Comment on above: Order Comment: 104-1 Performed By: #### L 9200.0000 #### [facility] [address] [place], [address] Sodium [Moles/Vol] 138 mmol/L Normal 133-145 [facility] Comment on above: Order Comment: 104-1 Performed By: #### L 9200.0000 #### [facility] [address] [place], [address] Urea nitrogen [Mass/Vol] 19 mg/dL Normal 4-19 [facility] Comment on above: Order Comment: 104-1 Performed By: #### L 9200.0000 #### [facility] [address] [place], [address] CBC W/Diff, Automatedon 05-0 1-5 Absolute Lymph 1.77 X10 3/uL Normal 0.83-4.51 [facility] Comment on above: Order Comment: 104-1 Performed By: #### L 9200.0000 #### [facility] [address] [place], [address] Absolute Neut 3.2 X10 3/uL Normal 2.0-7.7 [facility] Comment on above: Order Comment: 104-1 Performed By: #### L 9200.0000 #### [facility] [address] [place], [address] Basophils/100 WBC (Bld) 0.7 % Normal 0-1 [facility] Comment on above: Order Comment: 104-1 Performed By: #### L 9200.0000 #### [facility] [address] [place], [address] Eosinophils/100 WBC (Bld) 2.9 % Normal 0-5 [facility] Comment on above: Order Comment: 104-1 Performed By: #### L 9200.0000 #### [facility] [address] [place], [address] Erythrocyte distribution width (RBC) [Ratio] 18.8 % High 11.6-14.6 [facility] Comment on above: Order Comment: 104-1 Performed By: #### L 9200.0000 #### [facility] [address] [place], [address] Hematocrit (Bld) [Volume fraction] 30.9 % Low 37-47 [facility] Comment on above: Order Comment: 104-1 Performed By: #### L 9200.0000 #### [facility] [address] [place], [address] Hemoglobin (Bld) [Mass/Vol] 9.8 g/dL Low 12.0-15.0 [facility] Comment on above: Order Comment: 104-1 Performed By: #### L 9200.0000 #### [facility] [address] [place], [address] IG% 0.200 Normal 0.0-0.9 [facility] Comment on above: Order Comment: 104-1 Result Comment: IG% - Immature Granulocytes (promyelocytes, myelocytes and metamyelocytes) > 1% indicates that a LEFT SHIFT is Present. Performed By: #### L 9200.0000 #### [facility] [address] [place], [address] Lymphocytes/100 WBC (Bld) 30.3 % Normal 19-41 [facility] Comment on above: Order Comment: 104-1 Performed By: #### L 9200.0000 #### [facility] [address] [place], [address] MCH (RBC) [Entitic mass] 28.4 pg Normal 27.0-32.0 [facility] Comment on above: Order Comment: 104-1 Performed By: #### L 9200.0000 #### [facility] [address] [place], [address] MCHC (RBC) [Mass/Vol] 31.7 g/dL Low 32-36 [facility] Comment on above: Order Comment: 104-1 Performed By: #### L 9200.0000 #### [facility] [address] [place], [address] MCV (RBC) [Entitic vol] 89.6 fL Normal 81-99 [facility] Comment on above: Order Comment: 104-1 Performed By: #### L 9200.0000 #### [facility] [address] [place], [address] Monocytes/100 WBC (Bld) 11.3 % High 0-10 [facility] Comment on above: Order Comment: 104-1 Performed By: #### L 9200.0000 #### [facility] [address] [place], [address] Neutrophils/100 WBC (Bld) 54.6 % Normal 47-70 [facility] Comment on above: Order Comment: 104-1 Performed By: #### L 9200.0000 #### [facility] [address] [place], [address] Nucleated RBC (Bld) [#/Vol] 0 10*3/uL Normal 0-5 [facility] Comment on above: Order Comment: 104-1 Performed By: #### L 9200.0000 #### [facility] [address] [place], [address] Platelet mean volume (Bld) [Entitic vol] 10.2 fL Normal 6.2-12.0 [facility] Comment on above: Order Comment: 104-1 Performed By: #### L 9200.0000 #### [facility] [address] [place], [address] Platelets (Bld) [#/Vol] 303 10*3/uL Normal 150-450 [facility] Comment on above: Order Comment: 104-1 Performed By: #### L 9200.0000 #### [facility] [address] [place], [address] RBC (Bld) [#/Vol] 3.45 10*6/uL Low 4.2-5.4 [facility] Comment on above: Order Comment: 104-1 Performed By: #### L 9200.0000 #### [facility] [address] [place], [address] RDW SD 61.8 fl High 35.1-43.9 [facility] Comment on above: Order Comment: 104-1 Performed By: #### L 9200.0000 #### [facility] [address] [place], [address] WBC (Bld) [#/Vol] 5.8 10*3/uL Normal 4.4-11.0 [facility] Comment on above: Order Comment: 104-1 Performed By: #### L 9200.0000 #### [facility] [address] [place], [address] 36on 11-14-2024 36 Normal [facility] 36on 11-08-2024 36 Fidel called to state that she spoke with Mel and she would like to proceed with angio. Normal [facility] Progress Noteon 11-05-2024 Progress Note Normal [facility] Anion gap in Serum or Plasma Ordered By: Megan Montoya on 10-08-2024 Anion gap [Moles/Vol] 12 mmol/L 5-15 [facility] BUN/creatinine ratioOrdered By: Megan Montoya on 10-08-2024 Urea nitrogen/Creatinine [Mass ratio] 16.5 mg/mg 10-20 [facility] Basic Metabolic Profile (BMP )on 10-08-2024 BUN/CRE 16.5 RATIO Normal - [facility] Comment on above: Order Comment: 104.1 Performed By: #### L 500.2500, L100.0500 #### [facility] [address] [place], [address] Calcium [Mass/Vol] 9.0 mg/dL Normal 7.6-11.0 [facility] Comment on above: Order Comment: 104.1 Performed By: #### L 500.2500, L100.0500 #### [facility] [address] [place], [address] Chloride [Moles/Vol] 106 mmol/L Normal 98-108 [facility] Comment on above: Order Comment: 104.1 Performed By: #### L 500.2500, L100.0500 #### [facility] [address] [place], [address] CO2 [Moles/Vol] 20.0 mmol/L Low 21.0-32.0 [facility] Comment on above: Order Comment: 104.1 Performed By: #### L 500.2500, L100.0500 #### [facility] [address] [place], [address] Creatinine [Mass/Vol] 1.05 mg/dL Normal 0.70-1.20 [facility] Comment on above: Order Comment: 104.1 Performed By: #### L 500.2500, L100.0500 #### [facility] [address] [place], [address] GAP 12 Normal 5-15 [facility] Comment on above: Order Comment: 104.1 Performed By: #### L 500.2500, L100.0500 #### [facility] [address] [place], [address] GFR/1.73 sq M.predicted among non-blacks MDRD (S/P/Bld) [Vol rate/Area] 52 mL/min/{1.73_m2} Low >60 [facility] Comment on above: Order Comment: 104.1 Result Comment: mL/m in/1.73m2 CKD-EPI Creatinine Equation (2020) Performed By: #### L 500.2500, L100.0500 #### [facility] [address] [place], [address] Glucose [Mass/Vol] 98 mg/dL Normal 70-99 [facility] Comment on above: Order Comment: 104.1 Performed By: #### L 500.2500, L100.0500 #### [facility] [address] [place], [address] Potassium [Moles/Vol] 4.3 mmol/L Normal 3.3-5.1 [facility] Comment on above: Order Comment: 104.1 Result Comment: Hemo lysis present, Results??could be affected. ?? Performed By: #### L 500.2500, L100.0500 #### [facility] [address] [place], [address] Sodium [Moles/Vol] 137 mmol/L Normal 133-145 [facility] Comment on above: Order Comment: 104.1 Performed By: #### L 500.2500, L100.0500 #### [facility] [address] [place], [address] Urea nitrogen [Mass/Vol] 17 mg/dL Normal 4-19 [facility] Comment on above: Order Comment: 104.1 Performed By: #### L 500.2500, L100.0500 #### [facility] [address] [place], [address] CBC-Complete Blood Cnt No Di ffon 10-08-2024 Erythrocyte distribution width (RBC) [Ratio] 17.5 % High 11.6-14.6 [facility] Comment on above: Order Comment: 104.1 Performed By: #### L 500.2500, L100.0500 #### [facility] [address] [place], [address] Hematocrit (Bld) [Volume fraction] 30.4 % Low 37-47 [facility] Comment on above: Order Comment: 104.1 Performed By: #### L 500.2500, L100.0500 #### [facility] [address] [place], [address] Hemoglobin (Bld) [Mass/Vol] 9.6 g/dL Low 12.0-15.0 [facility] Comment on above: Order Comment: 104.1 Performed By: #### L 500.2500, L100.0500 #### [facility] [address] [place], [address] MCH (RBC) [Entitic mass] 27.4 pg Normal 27.0-32.0 [facility] Comment on above: Order Comment: 104.1 Performed By: #### L 500.2500, L100.0500 #### [facility] [address] [place], [address] MCHC (RBC) [Mass/Vol] 31.6 g/dL Low 32-36 [facility] Comment on above: Order Comment: 104.1 Performed By: #### L 500.2500, L100.0500 #### [facility] [address] [place], [address] MCV (RBC) [Entitic vol] 86.9 fL Normal 81-99 [facility] Comment on above: Order Comment: 104.1 Performed By: #### L 500.2500, L100.0500 #### [facility] [address] [place], [address] Platelet mean volume (Bld) [Entitic vol] 10.3 fL Normal 6.2-12.0 [facility] Comment on above: Order Comment: 104.1 Performed By: #### L 500.2500, L100.0500 #### [facility] [address] [place], [address] Platelets (Bld) [#/Vol] 408 10*3/uL Normal 150-450 [facility] Comment on above: Order Comment: 104.1 Performed By: #### L 500.2500, L100.0500 #### [facility] [address] [place], [address] RBC (Bld) [#/Vol] 3.50 10*6/uL Low 4.2-5.4 [facility] Comment on above: Order Comment: 104.1 Performed By: #### L 500.2500, L100.0500 #### [facility] [address] [place], [address] RDW SD 56.2 fl High 35.1-43.9 [facility] Comment on above: Order Comment: 104.1 Performed By: #### L 500.2500, L100.0500 #### [facility] [address] [place], [address] WBC (Bld) [#/Vol] 6.4 10*3/uL Normal 4.4-11.0 [facility] Comment on above: Order Comment: 104.1 Performed By: #### L 500.2500, L100.0500 #### [facility] [address] [place], [address] Carbon dioxide, total [Moles /volume] in Central venous bloodOrdered By: Megan Montoya on 10-08-2024 CO2 [Moles/Vol] 20.0 mmol/L Low 21.0-32.0 [facility] Chloride assayOrdered By: Johnathan Guzman on 10-08-2024 Chloride [Moles/Vol] 106 mmol/L 98-108 [facility] Erythrocyte distribution wid th ratioOrdered By: Megan Montoya on 10-08-2024 Erythrocyte distribution width (RBC) [Ratio] 17.5 % High 11.6-14.6 [facility] Erythrocyte distribution wid th standard deviationOrdered By: Megan Montoya on 10-08-2024 Erythrocyte distribution width (RBC) [Entitic vol] 56.2 fL High 35.1-43.9 [facility] GFR/1.73 sq M.predicted gricelda g non-blacks MDRD (S/P/Bld) [Vol rate/Area]Ordered By: Megan Montoya on 10-08-2024 Estimated GFR (MDRD) Non-Af Amer 52 Low >60 [facility] Comment on above: mL/min/1.73m2 CKD-EP I Creatinine Equation (2020) Hematocrit Auto (Bld) [Volum e fraction]Ordered By: Megan Montoya on 10-08-2024 Hematocrit (Bld) [Volume fraction] 30.4 % Low 37-47 [facility] Hemoglobin measurementOrdere d By: Megan Montoya on 10-08-2024 Hemoglobin (Bld) [Mass/Vol] 9.6 g/dL Low 12.0-15.0 [facility] MCV (mean corpuscular volume ) determinationOrdered By: Megan Montoya on 10-08-2024 MCV (RBC) [Entitic vol] 86.9 fL 81-99 [facility] Mean corpuscular hemoglobin (MCH) determinationOrdered By: Megan Montoya on 10-08-2024 MCH (RBC) [Entitic mass] 27.4 pg 27.0-32.0 [facility] Mean corpuscular hemoglobin concentration (MCHC) determinationOrdered By: Megan Montoya on 10-08-2024 MCHC (RBC) [Mass/Vol] 31.6 g/dL Low 32-36 [facility] Mean platelet volume determi nationOrdered By: Megan Montoya on 10-08-2024 Platelet mean volume (Bld) [Entitic vol] 10.3 fL 6.2-12.0 [facility] Platelet countOrdered By: Johnathan Guzman on 10-08-2024 Platelets (Bld) [#/Vol] 408 10*3/uL 150-450 [facility] Potassium (Unsp spec) [Mass/ Vol]Ordered By: Megan Montoya on 10-08-2024 Potassium [Moles/Vol] 4.3 mmol/L 3.3-5.1 [facility] Comment on above: Hemolysis present, R esults could be affected. RBC Auto (Bld) [#/Vol]Ordere d By: Megan Montoya on 10-08-2024 RBC (Bld) [#/Vol] 3.50 10*6/uL Low 4.2-5.4 [facility] Serum creatinine measurement (mass/volume)Ordered By: Megan Montoya on 10-08-2024 Creatinine [Mass/Vol] 1.05 mg/dL 0.70-1.20 [facility] Serum glucose measurement (m ass/volume)Ordered By: Megan Montoya on 10-08-2024 Glucose [Mass/Vol] 98 mg/dL 70-99 [facility] Serum or plasma calcium reyna urement (mass/volume)Ordered By: Megan Montoya on 10-08-2024 Calcium [Mass/Vol] 9.0 mg/dL 7.6-11.0 [facility] Serum or plasma urea nitroge n measurement (mass/volume)Ordered By: Megan Montoya on 10-08-2024 Urea nitrogen [Mass/Vol] 17 mg/dL 4-19 [facility] Sodium levelOrdered By: Juan C Montoya on 10-08-2024 Sodium [Moles/Vol] 137 mmol/L 133-145 [facility] White blood cell (WBC) count Ordered By: Megan Montoya on 10-08-2024 WBC (Bld) [#/Vol] 6.4 10*3/uL 4.4-11.0 [facility] BSCAN OD (RIGHT EYE)on 10-01 [facility] Radiology Study observation (narrative) [facility] BUN/creatinine ratioOrdered By: Megan Montoya on 09-17-2024 Urea nitrogen/Creatinine [Mass ratio] 15.7 mg/mg 10-20 [facility] Basic Metabolic Profile (BMP )on 09-17-2024 Anion gap [Moles/Vol] 10 mmol/L Normal 5-15 [facility] Comment on above: Order Comment: 104-1 Performed By: #### L 300.1900 #### [facility] [address] [place], [address] BUN/CRE 15.7 RATIO Normal 10-20 [facility] Comment on above: Order Comment: 104-1 Performed By: #### L 300.3900 #### [facility] [address] [place], [address] Calcium [Mass/Vol] 9.0 mg/dL Normal 7.6-11.0 [facility] Comment on above: Order Comment: 104-1 Performed By: #### L 300.3900 #### [facility] [address] [place], [address] Chloride [Moles/Vol] 108 mmol/L Normal 96-108 [facility] Comment on above: Order Comment: 104-1 Performed By: #### L 300.3900 #### [facility] [address] [place], [address] CO2 [Moles/Vol] 21.6 mmol/L Low 22.0-29.0 [facility] Comment on above: Order Comment: 104-1 Performed By: #### L 300.3900 #### [facility] [address] [place], [address] Creatinine [Mass/Vol] 1.03 mg/dL Normal 0.70-1.20 [facility] Comment on above: Order Comment: 104-1 Performed By: #### L 300.3900 #### [facility] [address] [place], [address] GFR/1.73 sq M.predicted among non-blacks MDRD (S/P/Bld) [Vol rate/Area] 54 mL/min/{1.73_m2} Low >60 [facility] Comment on above: Order Comment: 104-1 Result Comment: mL/m in/1.73m2 CKD-EPI Creatinine Equation (2020) Performed By: #### L 300.3900 #### [facility] [address] [place], [address] Glucose [Mass/Vol] 90 mg/dL Normal 70-99 [facility] Comment on above: Order Comment: 104-1 Performed By: #### L 300.3900 #### [facility] [address] [place], [address] Potassium [Moles/Vol] 4.5 mmol/L Normal 3.3-5.1 [facility] Comment on above: Order Comment: 104-1 Performed By: #### L 300.3900 #### [facility] [address] [place], [address] Sodium [Moles/Vol] 140 mmol/L Normal 133-145 [facility] Comment on above: Order Comment: 104-1 Performed By: #### L 300.3900 #### [facility] [address] [place], [address] Urea nitrogen [Mass/Vol] 16 mg/dL Normal 4-19 [facility] Comment on above: Order Comment: 104-1 Performed By: #### L 300.3900 #### [facility] [address] [place], [address] Carbon dioxide measurementOr dered By: Megan Montoya on 09-17-2024 CO2 [Moles/Vol] 21.6 mmol/L Low 22.0-29.0 [facility] Chloride measurementOrdered By: Megan Montoya on 09-17-2024 Chloride [Moles/Vol] 108 mmol/L 96-108 [facility] GFR/1.73 sq M.predicted gricelda g non-blacks MDRD (S/P/Bld) [Vol rate/Area]Ordered By: Megan Montoya on 09-17-2024 Estimated GFR (MDRD) Non-Af Amer 54 Low >60 [facility] Comment on above: mL/min/1.73m2 CKD-EP I Creatinine Equation (2020) Serum creatinine measurement (mass/volume)Ordered By: Megan Montoya on 09-17-2024 Creatinine [Mass/Vol] 1.03 mg/dL 0.70-1.20 [facility] Serum glucose measurement (m ass/volume)Ordered By: Megan Montoya on 09-17-2024 Glucose [Mass/Vol] 90 mg/dL 70-99 [facility] Serum or plasma anion gap de termination (moles/volume)Ordered By: Megan Montoya on 09-17-2024 Anion gap [Moles/Vol] 10 mmol/L 5-15 [facility] Serum or plasma calcium reyna urement (mass/volume)Ordered By: Megan Montoya on 09-17-2024 Calcium [Mass/Vol] 9.0 mg/dL 7.6-11.0 [facility] Serum or plasma potassium me asurementOrdered By: eMgan Montoya on 09-17-2024 Potassium [Moles/Vol] 4.5 mmol/L 3.3-5.1 [facility] Serum or plasma sodium measu rement (moles/volume)Ordered By: Megan Montoya on 09-17-2024 Sodium [Moles/Vol] 140 mmol/L 133-145 [facility] Serum or plasma urea nitroge n measurement (mass/volume)Ordered By: Megan Montoya on 09-17-2024 Urea nitrogen [Mass/Vol] 16 mg/dL 4-19 [facility] Basic Metabolic Profile (BMP )on 09-10-2024 BUN/CRE 17.9 RATIO Normal 10-20 [facility] Comment on above: Order Comment: 104.1 Performed By: #### L 9200.0000 #### [facility] [address] [place], [place], [id number] CA,Total 9.0 mg/dL Normal 8.5-10.1 [facility] Comment on above: Order Comment: 104.1 Performed By: #### L 9200.0000 #### [facility] [address] [place], [place], [address] Chloride [Moles/Vol] 108 mmol/L High 98-107 [facility] Comment on above: Order Comment: 104.1 Performed By: #### L 9200.0000 #### [facility] [address] [place], [address] CO2 [Moles/Vol] 24.0 mmol/L Normal 21.0-32.0 [facility] Comment on above: Order Comment: 104.1 Performed By: #### L 9200.0000 #### [facility] [address] [place], [address] Creatinine [Mass/Vol] 1.23 mg/dL High 0.55-1.02 [facility] Comment on above: Order Comment: 104.1 Result Comment: The validity of the calculated GFR GFRAA in patients over 70 years has not been determined. Clinical correlation is essential. Performed By: #### L 9200.0000 #### [facility] [address] [place], [address] EST GFR - AA 53 mL/min Low >60 [facility] Comment on above: Order Comment: 104.1 Result Comment: Afri can [place] GFR Calc Performed By: #### L 9200.0000 #### [facility] [address] [place], [address] GAP 5 Normal 5-15 [facility] Comment on above: Order Comment: 104.1 Performed By: #### L 9200.0000 #### [facility] [address] [place], [address] GFR/1.73 sq M.predicted among non-blacks MDRD (S/P/Bld) [Vol rate/Area] 44 mL/min/{1.73_m2} Low >60 [facility] Comment on above: Order Comment: 104.1 Result Comment: Non- GFR Calc Performed By: #### L 9200.0000 #### [facility] [address] [place], [address] Glucose [Mass/Vol] 98 mg/dL Normal 74-106 [facility] Comment on above: Order Comment: 104.1 Performed By: #### L 9200.0000 #### [facility] [address] [place], [address] Potassium [Moles/Vol] 4.5 mmol/L Normal 3.5-5.1 [facility] Comment on above: Order Comment: 104.1 Performed By: #### L 9200.0000 #### [facility] [address] [place], [address] Sodium [Moles/Vol] 137 mmol/L Normal 136-145 [facility] Comment on above: Order Comment: 104.1 Performed By: #### L 9200.0000 #### [facility] [address] [place], [address] Urea nitrogen [Mass/Vol] 22 mg/dL High 7-18 [facility] Comment on above: Order Comment: 104.1 Performed By: #### L 9200.0000 #### [facility] [address] [place], [address] Blood urea nitrogen (BUN)/cr eatinine ratioOrdered By: Megan Montoya on 09-10-2024 Urea nitrogen/Creatinine [Mass ratio] 17.9 mg/mg 10-20 [facility] CBC-Complete Blood Cnt No Di ffon 09-10-2024 Erythrocyte distribution width (RBC) [Ratio] 17.8 % High 11.6-14.6 [facility] Comment on above: Order Comment: 104.1 Performed By: #### L 9200.0000 #### [facility] [address] [place], [address] Hematocrit (Bld) [Volume fraction] 31.9 % Low 37-47 [facility] [facility] Comment on above: Order Comment: 104.1 Performed By: #### L [id number] #### [facility] [address] [place], [address] Hemoglobin (Bld) [Mass/Vol] 9.7 g/dL Low 12.0-15.0 [facility] Comment on above: Order Comment: 104.1 Performed By: #### L [id number] #### [facility] [address] [place], [address] MCH (RBC) [Entitic mass] 26.1 pg Low 27.0-32.0 [facility] Comment on above: Order Comment: 104.1 Performed By: #### L [id number] #### [facility] [address] [place], [address] MCHC (RBC) [Mass/Vol] 30.4 g/dL Low 32-36 [facility] Comment on above: Order Comment: 104.1 Performed By: #### L [id number] #### [facility] [address] [place], [address] MCV (RBC) [Entitic vol] 85.8 fL Normal 81-99 [facility] Comment on above: Order Comment: 104.1 Performed By: #### L [id number] #### [facility] [address] [place], [address] Platelet mean volume (Bld) [Entitic vol] 9.5 fL Normal 6.2-12.0 [facility] Comment on above: Order Comment: 104.1 Performed By: #### L [id number] #### [facility] [address] [place], [address] Platelets (Bld) [#/Vol] 485 10*3/uL High 150-450 [facility] Comment on above: Order Comment: 104.1 Performed By: #### L [id number] #### [facility] [address] [place], [address] RBC (Bld) [#/Vol] 3.72 10*6/uL Low 4.2-5.4 [facility] Comment on above: Order Comment: 104.1 Performed By: #### L [id number] #### [facility] [address] [place], [place], [id number] RDW SD 55.2 fl High 35.1-43.9 [facility] Comment on above: Order Comment: 104.1 Performed By: #### L [id number] #### [facility] [address] [place], [place], [address] WBC (Bld) [#/Vol] 7.7 10*3/uL Normal 4.4-11.0 [facility] Comment on above: Order Comment: 104.1 Performed By: #### L [id number] #### [facility] [address] [place], [place], [address] Carbon dioxide measurementOr dered By: Megan Montoya on 09-10-2024 CO2 [Moles/Vol] 24.0 mmol/L 21.0-32.0 [facility] Chloride measurementOrdered By: Megan Montoya on 09-10-2024 Chloride [Moles/Vol] 108 mmol/L High 98-107 [facility] Erythrocyte distribution wid th ratioOrdered By: Megan Montoya on 09-10-2024 Erythrocyte distribution width (RBC) [Ratio] 17.8 % High 11.6-14.6 [facility] Erythrocyte distribution wid th standard deviationOrdered By: Megan Montoya on 09-10-2024 Erythrocyte distribution width (RBC) [Entitic vol] 55.2 fL High 35.1-43.9 [facility] Estimated glomerular filtrat ion rate (GFR) AmericanOrdered By: Megan Montoya on 09-10-2024 Estimated GFR (MDRD) Amer 53 mL/min Low >60 [facility] Comment on above: GFR Calc Glomerular filtration rate ( GFR) estimationOrdered By: Megan Montoya on 09-10-2024 Estimated GFR (MDRD) Non-Af Amer 44 mL/min Low >60 [facility] Comment on above: Non- GFR Calc Glucose measurementOrdered B y: Megan Montoya on 09-10-2024 Glucose [Mass/Vol] 98 mg/dL 74-106 [facility] Hematocrit Auto (Bld) [Volum e fraction]Ordered By: Megan Montoya on 09-10-2024 Hematocrit (Bld) [Volume fraction] 31.9 % Low 37-47 [facility] Hemoglobin measurementOrdere d By: Megan Montoya on 09-10-2024 Hemoglobin (Bld) [Mass/Vol] 9.7 g/dL Low 12.0-15.0 [facility] MCV (mean corpuscular volume ) determinationOrdered By: Megan Montoya on 09-10-2024 MCV (RBC) [Entitic vol] 85.8 fL 81-99 [facility] Mean corpuscular hemoglobin (MCH) determinationOrdered By: Megan Montoya on 09-10-2024 MCH (RBC) [Entitic mass] 26.1 pg Low 27.0-32.0 [facility] Mean corpuscular hemoglobin concentration (MCHC) determinationOrdered By: Megan Montoya on 09-10-2024 MCHC (RBC) [Mass/Vol] 30.4 g/dL Low 32-36 [facility] Mean platelet volume determi nationOrdered By: Megan Montoya on 09-10-2024 Platelet mean volume (Bld) [Entitic vol] 9.5 fL 6.2-12.0 [facility] Platelet countOrdered By: Johnathan Guzman on 09-10-2024 Platelets (Bld) [#/Vol] 485 10*3/uL High 150-450 [facility] Potassium measurementOrdered By: Megan Montoya on 09-10-2024 Potassium [Moles/Vol] 4.5 mmol/L 3.5-5.1 [facility] RBC Auto (Bld) [#/Vol]Ordere d By: Megan Montoya on 09-10-2024 RBC (Bld) [#/Vol] 3.72 10*6/uL Low 4.2-5.4 [facility] Serum anion gap measurementO rdered By: Megan Montoya on 09-10-2024 Anion gap [Moles/Vol] 5 mmol/L 5-15 [facility] Serum or plasma calcium reyna urement (mass/volume)Ordered By: Megan Montoya on 09-10-2024 Calcium [Mass/Vol] 9.0 mg/dL 8.5-10.1 [facility] Serum or plasma creatinine m easurement (mass/volume)Ordered By: Megan Montoya on 09-10-2024 Creatinine [Mass/Vol] 1.23 mg/dL High 0.55-1.02 [facility] Comment on above: The validity of the calculated GFR & GFRAA in patients over 70 years has not been determined. Clinical correlation is essential. Serum or plasma urea nitroge n measurement (mass/volume)Ordered By: Megan Montoya on 09-10-2024 Urea nitrogen [Mass/Vol] 22 mg/dL High 7-18 [facility] Sodium levelOrdered By: Juan C Montoya on 09-10-2024 Sodium [Moles/Vol] 137 mmol/L 136-145 [facility] White blood cell (WBC) count Ordered By: Megan Montoya on 09-10-2024 WBC (Bld) [#/Vol] 7.7 10*3/uL 4.4-11.0 [facility] Urine Cultureon 09-06-2024 [facility]RC UNKNOWN METHOD OF COLLECTION Proteus mirabilis Rice Count 50,000-80,000 Klebsiella pneumoniae sp pneum Klebsiella [...] TMP SMX Islt AGATA <=20 S Normal [facility] Comment on above: Performed By: #### L [id number] #### [facility] [address] [place], [address] Urinalysis, Completeon 09-04 BACTERIA 4+ /hpf Normal None Seen [facility] Comment on above: Order Comment: UNKNO WN METHOD OF COLLECTIONCLEAN CATCH Performed By: #### L [id number] #### [facility] [address] [place], [address] EPI,SQUAMOUS 10-25 SEEN Normal 5-10 [facility] Comment on above: Order Comment: UNKNO WN METHOD OF COLLECTIONCLEAN CATCH Performed By: #### L [id number] #### [facility] [address] [place], [address] Mucus Ql (Urine sed) 1+ /hpf Normal [facility] Comment on above: Order Comment: UNKNO WN METHOD OF COLLECTIONCLEAN CATCH Performed By: #### L [id number] #### [facility] [address] [place], [address] RBC 5-10 SEEN Normal 0-5 [facility] Comment on above: Order Comment: UNKNO WN METHOD OF COLLECTIONCLEAN CATCH Performed By: #### L [id number] #### [facility] [address] [place], [address] WBC 50-100 SEEN Normal 0-5 [facility] Comment on above: Order Comment: UNKNO WN METHOD OF COLLECTIONCLEAN CATCH Performed By: #### L [id number] #### [facility] [address] [place], [address] Basic Metabolic Profile (BMP )on 09-03-2024 BUN/CRE 20.7 RATIO High 10-20 [facility] Comment on above: Order Comment: 104-1 Performed By: #### L [id number] #### [facility] [address] [place], [address] CA,Total 9.4 mg/dL Normal 8.5-10.1 [facility] Comment on above: Order Comment: 104-1 Performed By: #### L [id number] #### [facility] [address] [place], [address] Chloride [Moles/Vol] 109 mmol/L High 98-107 [facility] Comment on above: Order Comment: 104-1 Performed By: #### L [id number] #### [facility] [address] [place], [address] CO2 [Moles/Vol] 21.0 mmol/L Normal 21.0-32.0 [facility] Comment on above: Order Comment: 104-1 Performed By: #### L [id number] #### [facility] [address] [place], [address] Creatinine [Mass/Vol] 0.92 mg/dL Normal 0.55-1.02 [facility] Comment on above: Order Comment: 104-1 Result Comment: The validity of the calculated GFR GFRAA in patients over 70 years has not been determined. Clinical correlation is essential. Performed By: #### L [id number] #### [facility] [address] [place], [address] EST GFR - AA 75 mL/min Normal >60 [facility] Comment on above: Order Comment: 104-1 Result Comment: Afri can Andorran GFR Calc Performed By: #### L [id number] #### [facility] [address] [place], [address] GAP 9 Normal 5-15 [facility] Comment on above: Order Comment: 104-1 Performed By: #### L [id number] #### [facility] [address] [place], [address] GFR/1.73 sq M.predicted among non-blacks MDRD (S/P/Bld) [Vol rate/Area] 62 mL/min/{1.73_m2} Normal >60 [facility] Comment on above: Order Comment: 104-1 Result Comment: Non- GFR Calc Performed By: #### L [id number] #### [facility] [address] [place], [address] Glucose [Mass/Vol] 115 mg/dL High 74-106 [facility] Comment on above: Order Comment: 104-1 Result Comment: Fast ing Glucose result from 100 to 125 mg/dL suggests IMPAIRED HOMEOSTASIS per A.D.A. criteria. Performed By: #### L [id number] #### [facility] [address] [place], [address] Potassium [Moles/Vol] 4.4 mmol/L Normal 3.5-5.1 [facility] Comment on above: Order Comment: 104-1 Performed By: #### L [id number] #### [facility] [address] [place], [address] Sodium [Moles/Vol] 139 mmol/L Normal 136-145 [facility] Comment on above: Order Comment: 104-1 Performed By: #### L [id number] #### [facility] [address] [place], [address] Urea nitrogen [Mass/Vol] 19 mg/dL High 7-18 [facility] Comment on above: Order Comment: 104-1 Performed By: #### L [id number] #### [facility] [address] [place], [address] Bilirubin Test strip Ql (U)O rdered By: Megan Montoya on 09-03-2024 Bilirubin Ql (U) Negative Negative [facility] Blood urea nitrogen (BUN)/cr eatinine ratioOrdered By: Megan Montoya on 09-03-2024 Urea nitrogen/Creatinine [Mass ratio] 20.7 mg/mg High 10-20 [facility] CBC-Complete Blood Cnt No Di ffon 09-03-2024 Erythrocyte distribution width (RBC) [Ratio] 17.9 % High 11.6-14.6 [facility] Comment on above: Order Comment: 104-1 Performed By: #### L [id number] #### [facility] [address] [place], [address] Hematocrit (Bld) [Volume fraction] 30.8 % Low 37-47 [facility] Comment on above: Order Comment: 104-1 Performed By: #### L [id number] #### [facility] [address] [place], [address] Hemoglobin (Bld) [Mass/Vol] 9.5 g/dL Low 12.0-15.0 [facility] Comment on above: Order Comment: 104-1 Performed By: #### L [id number] #### [facility] [address] [place], [address] MCH (RBC) [Entitic mass] 25.7 pg Low 27.0-32.0 [facility] Comment on above: Order Comment: 104-1 Performed By: #### L [id number] #### [facility] [address] [place], [address] MCHC (RBC) [Mass/Vol] 30.8 g/dL Low 32-36 [facility] Comment on above: Order Comment: 104-1 Performed By: #### L [id number] #### [facility] [address] [place], [address] MCV (RBC) [Entitic vol] 83.5 fL Normal 81-99 [facility] Comment on above: Order Comment: 104-1 Performed By: #### L [id number] #### [facility] [address] [place], [address] Platelet mean volume (Bld) [Entitic vol] 10.2 fL Normal 6.2-12.0 [facility] Comment on above: Order Comment: 104-1 Performed By: #### L [id number] #### [facility] [address] [place], [address] Platelets (Bld) [#/Vol] 431 10*3/uL Normal 150-450 [facility] Comment on above: Order Comment: 104-1 Performed By: #### L [id number] #### [facility] [address] [place], [address] RBC (Bld) [#/Vol] 3.69 10*6/uL Low 4.2-5.4 [facility] Comment on above: Order Comment: 104-1 Performed By: #### L [id number] #### [facility] [address] [place], [address] RDW SD 54.3 fl High 35.1-43.9 [facility] Comment on above: Order Comment: 104-1 Performed By: #### L [id number] #### [facility] [address] [place], [address] WBC (Bld) [#/Vol] 10.6 10*3/uL Normal 4.4-11.0 [facility] Comment on above: Order Comment: 104-1 Performed By: #### L [id number] #### [facility] [address] [place], [address] Carbon dioxide measurementOr dered By: Megan Montoya on 09-03-2024 CO2 [Moles/Vol] 21.0 mmol/L 21.0-32.0 [facility] Chloride measurementOrdered By: Megan Montoya on 09-03-2024 Chloride [Moles/Vol] 109 mmol/L High 98-107 [facility] Epithelial cells.squamous LM Ql (Urine sed)Ordered By: Megan Montoya on 09-03-2024 Epithelial cells.squamous LM.HPF (Urine sed) [#/Area] 10 /[HPF] 5-10 [facility] Erythrocyte distribution wid th ratioOrdered By: Megan Montoya on 09-03-2024 Erythrocyte distribution width (RBC) [Ratio] 17.9 % High 11.6-14.6 [facility] Erythrocyte distribution wid th standard deviationOrdered By: Megan Montoya on 09-03-2024 Erythrocyte distribution width (RBC) [Entitic vol] 54.3 fL High 35.1-43.9 [facility] Estimated glomerular filtrat ion rate (GFR) AmericanOrdered By: Megan Montoya on 09-03-2024 Estimated GFR (MDRD) Amer 75 mL/min >60 [facility] Comment on above: GFR Calc Glomerular filtration rate ( GFR) estimationOrdered By: Megan Montoya on 09-03-2024 Estimated GFR (MDRD) Non-Af Amer 62 mL/min >60 [facility] Comment on above: Non- GFR Calc Glucose Ql (U)Ordered By: Johnathan Guzman on 09-03-2024 Urine Glucose (UA) Normal mg/dl Normal [facility] Glucose measurementOrdered B y: Megan Montoya on 09-03-2024 Glucose [Mass/Vol] 115 mg/dL High 74-106 [facility] Comment on above: Fasting Glucose resu lt from 100 to 125 mg/dL suggests IMPAIRED HOMEOSTASIS per A.D.A. criteria. Hematocrit Auto (Bld) [Volum e fraction]Ordered By: Megan Montoya on 09-03-2024 Hematocrit (Bld) [Volume fraction] 30.8 % Low 37-47 [facility] Hemoglobin measurementOrdere d By: Megan Montoya on 09-03-2024 Hemoglobin (Bld) [Mass/Vol] 9.5 g/dL Low 12.0-15.0 [facility] Ketones Test strip Ql (U)Ord ered By: Megan Montoya on 09-03-2024 Ketones Ql (U) 5 mg/dl High Negative [facility] MCV (mean corpuscular volume ) determinationOrdered By: Megan Montoya on 09-03-2024 MCV (RBC) [Entitic vol] 83.5 fL 81-99 [facility] Mean corpuscular hemoglobin (MCH) determinationOrdered By: Megan Montoya on 09-03-2024 MCH (RBC) [Entitic mass] 25.7 pg Low 27.0-32.0 [facility] Mean corpuscular hemoglobin concentration (MCHC) determinationOrdered By: Megan Montoya on 09-03-2024 MCHC (RBC) [Mass/Vol] 30.8 g/dL Low 32-36 [facility] Mean platelet volume determi nationOrdered By: Megan Montoya on 09-03-2024 Platelet mean volume (Bld) [Entitic vol] 10.2 fL 6.2-12.0 [facility] Microscopic analysis of urin e for red blood cells (RBC)Ordered By: Megan Montoya on 09-03-2024 Urine RBC 5-10 SEEN /hpf 0-5 [facility] Mucus LM Ql (Urine sed)Order ed By: Megan Montoya on 09-03-2024 Mucus Ql (Urine sed) 1+ /hpf [facility] Nitrite Test strip Ql (U)Ord ered By: eMgan Montoya on 09-03-2024 Nitrite Ql (U) Positive High Negative [facility] Platelet countOrdered By: Johnathan Guzman on 09-03-2024 Platelets (Bld) [#/Vol] 431 10*3/uL 150-450 [facility] Potassium measurementOrdered By: Megan Montoya on 09-03-2024 Potassium [Moles/Vol] 4.4 mmol/L 3.5-5.1 [facility] Protein Test strip Ql (U)Ord ered By: Megan Montoya on 09-03-2024 Protein Ql (U) 100 mg/dl High Negative [facility] RBC Auto (Bld) [#/Vol]Ordere d By: Megan Montoya on 09-03-2024 RBC (Bld) [#/Vol] 3.69 10*6/uL Low 4.2-5.4 [facility] Serum anion gap measurementO rdered By: Megan Montoya on 09-03-2024 Anion gap [Moles/Vol] 9 mmol/L 5-15 [facility] Serum or plasma calcium reyna urement (mass/volume)Ordered By: Megan Montoya on 09-03-2024 Calcium [Mass/Vol] 9.4 mg/dL 8.5-10.1 [facility] Serum or plasma creatinine m easurement (mass/volume)Ordered By: Megan Montoya on 09-03-2024 Creatinine [Mass/Vol] 0.92 mg/dL 0.55-1.02 [facility] Comment on above: The validity of the calculated GFR & GFRAA in patients over 70 years has not been determined. Clinical correlation is essential. Serum or plasma urea nitroge n measurement (mass/volume)Ordered By: Megan Montoya on 09-03-2024 Urea nitrogen [Mass/Vol] 19 mg/dL High 7-18 [facility] Sodium levelOrdered By: Juan C Montoya on 09-03-2024 Sodium [Moles/Vol] 139 mmol/L 136-145 [facility] Urine blood detectionOrdered By: Megan Montoya on 09-03-2024 Urine Occult Blood 150 /ul High Negative [facility] Urine clarityOrdered By: Pola Montoya on 09-03-2024 Clarity (U) Cloudy Clear [facility] Urine color determinationOrd ered By: Megan Montoya on 09-03-2024 Color (U) Yellow Yellow [facility] Urine cultureOrdered By: Pola Montoya on 09-03-2024 Bacteria identified Cx Nom (U) Proteus mirabilis Abnormal [facility] Bacteria identified Cx Nom (U) Klebsiella pneumoniae sp pneum Abnormal [facility] Bacteria identified Cx Nom (U) Proteus mirabilis Abnormal [facility] Bacteria identified Cx Nom (U) Klebsiella pneumoniae sp pneum Abnormal [facility] Urine leukocyte esterase det ection by dipstickOrdered By: Megan Montoya on 09-03-2024 Leukocyte esterase Test strip Ql (U) 500 /ul High Negative [facility] Urine pHOrdered By: Megan jimenez on 09-03-2024 pH (U) 6.0 [pH] 5.0 - 8.0 [facility] Urine sediment bacteria coun t by microscopy (number/high power field)Ordered By: Megan Montoya on 09-03-2024 Bacteria LM.HPF (Urine sed) [#/Area] 4 /[HPF] None Seen [facility] Urine specific gravity measu rementOrdered By: Megan Montoya on 09-03-2024 Specific gravity (U) [Rel density] 1.020 1.002-1.030 [facility] Urobilinogen Ql (U)Ordered B y: Megan Montoya on 09-03-2024 Urine Urobilinogen Normal mg/dl Normal [facility] White blood cell (WBC) count Ordered By: Megan Montoya on 09-03-2024 WBC (Bld) [#/Vol] 10.6 10*3/uL 4.4-11.0 [facility] White blood cell countOrdere d By: Megan Montoya on 09-03-2024 Urine WBC 50-100 SEEN /hpf 0-5 [facility] [id number] 08-27-2024 [id number] Patient Choice Patient Name: MEL POP Date of : 1940 Normal [facility] Progress Noteon 08-22-2024 Progress Note Normal [facility] Albumin to globulin ratioOrd ered By: Megan Montoya on 08-20-2024 Albumin/Globulin [Mass ratio] 0.7 {ratio} Low 0.9-2.4 [facility] Bilirubin, totalOrdered By: Megan Montoya on 08-20-2024 Bilirubin [Mass/Vol] 0.60 mg/dL 0.20-1.00 [facility] Comment on above: For patients on eltr ombopag therapy, use of Dimension Big Pool TBIL is not recommended. Blood urea nitrogen (BUN)/cr eatinine ratioOrdered By: Megan Montoya on 08-20-2024 Urea nitrogen/Creatinine [Mass ratio] 11.2 mg/mg 10-20 [facility] CBC-Complete Blood Cnt No Di ffon 08-20-2024 Erythrocyte distribution width (RBC) [Ratio] 19.2 % High 11.6-14.6 [facility] Comment on above: Performed By: #### L 100.0500, [id number] #### [facility] [address] [place], [address] Hematocrit (Bld) [Volume fraction] 33.4 % Low 37-47 [facility] Comment on above: Performed By: #### L 100.0500, [id number] #### [facility] [address] [place], [address] Hemoglobin (Bld) [Mass/Vol] 10.4 g/dL Low 12.0-15.0 [facility] Comment on above: Performed By: #### L 100.0500, [id number] #### [facility] [address] [place], [address] MCH (RBC) [Entitic mass] 26.3 pg Low 27.0-32.0 [facility] Comment on above: Performed By: #### L 100.0500, [id number] #### [facility] [address] [place], [address] MCHC (RBC) [Mass/Vol] 31.1 g/dL Low 32-36 [facility] Comment on above: Performed By: #### L 100.0500, [id number] #### [facility] [address] [place], [address] MCV (RBC) [Entitic vol] 84.6 fL Normal 81-99 [facility] Comment on above: Performed By: #### L 100.0500, [id number] #### [facility] [address] [place], [address] Platelet mean volume (Bld) [Entitic vol] 9.7 fL Normal 6.2-12.0 [facility] Comment on above: Performed By: #### L 100.0500, [id number] #### [facility] [address] [place], [address] Platelets (Bld) [#/Vol] 405 10*3/uL Normal 150-450 [facility] Comment on above: Performed By: #### L 100.0500, [id number] #### [facility] [address] [place], [address] RBC (Bld) [#/Vol] 3.95 10*6/uL Low 4.2-5.4 [facility] Comment on above: Performed By: #### L 100.0500, [id number] #### [facility] [address] [place], [address] RDW SD 58.9 fl High 35.1-43.9 [facility] Comment on above: Performed By: #### L 100.0500, [id number] #### [facility] [address] [place], [address] WBC (Bld) [#/Vol] 5.9 10*3/uL Normal 4.4-11.0 [facility] Comment on above: Performed By: #### L 100.0500, [id number] #### [facility] [address] [place], [address] Carbon dioxide measurementOr dered By: Megan Montoya on 08-20-2024 CO2 [Moles/Vol] 22.0 mmol/L 21.0-32.0 [facility] Chloride measurementOrdered By: Megan Montoya on 08-20-2024 Chloride [Moles/Vol] 109 mmol/L High 98-107 [facility] Comprehensive Metabolic Prof ilon 08-20-2024 Albumin [Mass/Vol] 2.7 g/dL Low 3.2-5.0 [facility] Comment on above: Performed By: #### L 100.0500, [id number] #### [facility] [address] [place], [address] Albumin/Globulin [Mass ratio] 0.7 {ratio} Low 0.9-2.4 [facility] Comment on above: Performed By: #### L 100.0500, [id number] #### [facility] [address] [place], [address] ALK P 117 U/L Normal 45-117 [facility] Comment on above: Performed By: #### L 100.0500, [id number] #### [facility] [address] [place], [address] ALT [Catalytic activity/Vol] 18 U/L Normal 13-56 [facility] Comment on above: Performed By: #### L 100.0500, [id number] #### [facility] [address] [place], [address] AST [Catalytic activity/Vol] 18 U/L Normal 15-37 [facility] Comment on above: Result Comment: Slig ht Hemolysis, Result may be falsely increased. Performed By: #### L 100.0500, L500.4050 #### [facility] [address] [place], [address] Bilirubin [Mass/Vol] 0.60 mg/dL Normal 0.20-1.00 [facility] Comment on above: Result Comment: For patients on eltrombopag therapy, use of Dimension Big Pool TBIL is not recommended. Performed By: #### L 100.0500, L500.4050 #### [facility] [address] [place], [address] BUN/CRE 11.2 RATIO Normal 10-20 [facility] Comment on above: Performed By: #### L 100.0500, L500.4050 #### [facility] [address] [place], [address] CA,Total 9.0 mg/dL Normal 8.5-10.1 [facility] Comment on above: Performed By: #### L 100.0500, L500.4050 #### [facility] [address] [place], [address] Chloride [Moles/Vol] 109 mmol/L High 98-107 [facility] Comment on above: Performed By: #### L 100.0500, L500.4050 #### [facility] [address] [place], [address] CO2 [Moles/Vol] 22.0 mmol/L Normal 21.0-32.0 [facility] Comment on above: Performed By: #### L 100.0500, L500.4050 #### [facility] [address] [place], [address] Creatinine [Mass/Vol] 0.98 mg/dL Normal 0.55-1.02 [facility] Comment on above: Result Comment: The validity of the calculated GFR GFRAA in patients over 70 years has not been determined. Clinical correlation is essential. Performed By: #### L 100.0500, L500.4050 #### [facility] [address] [place], [address] EST GFR - AA 69 mL/min Normal >60 [facility] Comment on above: Result Comment: Afri can Andorran GFR Calc Performed By: #### L 100.0500, L500.4050 #### [facility] [address] [place], [address] GAP 7 Normal 5-15 [facility] Comment on above: Performed By: #### L 100.0500, L500.4050 #### [facility] [address] [place], [address] GFR/1.73 sq M.predicted among non-blacks MDRD (S/P/Bld) [Vol rate/Area] 57 mL/min/{1.73_m2} Low >60 [facility] Comment on above: Result Comment: Non- GFR Calc Performed By: #### L 100.0500, L500.4050 #### [facility] [address] [place], [address] Globulin (S) [Mass/Vol] 4.1 g/dL Normal 2.2-4.2 [facility] Comment on above: Performed By: #### L 100.0500, L500.4050 #### [facility] [address] [place], [address] Glucose [Mass/Vol] 97 mg/dL Normal 74-106 [facility] Comment on above: Performed By: #### L 100.0500, L500.4050 #### [facility] [address] [place], [address] Potassium [Moles/Vol] 4.2 mmol/L Normal 3.5-5.1 [facility] Comment on above: Result Comment: Slig ht Hemolysis, Result may be falsely increased. Performed By: #### L 100.0500, L500.4050 #### [facility] [address] [place], [address] Sodium [Moles/Vol] 138 mmol/L Normal 136-145 [facility] Comment on above: Performed By: #### L 100.0500, L500.4050 #### [facility] [address] [place], [address] T PROT 6.8 g/dL Normal 6.4-8.2 [facility] Comment on above: Performed By: #### L 100.0500, L500.4050 #### [facility] [address] [place], [address] Urea nitrogen [Mass/Vol] 11 mg/dL Normal 7-18 [facility] Comment on above: Performed By: #### L 100.0500, L500.4050 #### [facility] [address] [place], [address] Erythrocyte distribution wid th ratioOrdered By: Megan Montoya on 08-20-2024 Erythrocyte distribution width (RBC) [Ratio] 19.2 % High 11.6-14.6 [facility] Erythrocyte distribution wid th standard deviationOrdered By: Megan Montoya on 08-20-2024 Erythrocyte distribution width (RBC) [Entitic vol] 58.9 fL High 35.1-43.9 [facility] Estimated glomerular filtrat ion rate (GFR) AmericanOrdered By: Megan Montoya on 08-20-2024 Estimated GFR (MDRD) Amer 69 mL/min >60 [facility] Comment on above: GFR Calc Glomerular filtration rate ( GFR) estimationOrdered By: Megan Montoya on 08-20-2024 Estimated GFR (MDRD) Non-Af Amer 57 mL/min Low >60 [facility] Comment on above: Non- GFR Calc Glucose measurementOrdered B y: Megan Montoya on 08-20-2024 Glucose [Mass/Vol] 97 mg/dL 74-106 [facility] Hematocrit Auto (Bld) [Volum e fraction]Ordered By: Megan Montoya on 08-20-2024 Hematocrit (Bld) [Volume fraction] 33.4 % Low 37-47 [facility] Hemoglobin measurementOrdere d By: Megan Montoya on 08-20-2024 Hemoglobin (Bld) [Mass/Vol] 10.4 g/dL Low 12.0-15.0 [facility] - Chemistry and C hemistry - challengeOrdered By: Megan Montoya on 08-20-2024 AST [Catalytic activity/Vol] 18 U/L 15-37 [facility] Comment on above: Slight Hemolysis, Re sult may be falsely increased. MCV (mean corpuscular volume ) determinationOrdered By: Megan Montoya on 08-20-2024 MCV (RBC) [Entitic vol] 84.6 fL 81-99 [facility] Mean corpuscular hemoglobin (MCH) determinationOrdered By: Megan Montoya on 08-20-2024 MCH (RBC) [Entitic mass] 26.3 pg Low 27.0-32.0 [facility] Mean corpuscular hemoglobin concentration (MCHC) determinationOrdered By: Megan Montoya on 08-20-2024 MCHC (RBC) [Mass/Vol] 31.1 g/dL Low 32-36 [facility] Mean platelet volume determi nationOrdered By: Megan Montoya on 08-20-2024 Platelet mean volume (Bld) [Entitic vol] 9.7 fL 6.2-12.0 [facility] Platelet countOrdered By: Johnathan Guzman on 08-20-2024 Platelets (Bld) [#/Vol] 405 10*3/uL 150-450 [facility] Potassium measurementOrdered By: Megan Montoya on 08-20-2024 Potassium [Moles/Vol] 4.2 mmol/L 3.5-5.1 [facility] Comment on above: Slight Hemolysis, Re sult may be falsely increased. RBC Auto (Bld) [#/Vol]Ordere d By: Megan Montoya on 08-20-2024 RBC (Bld) [#/Vol] 3.95 10*6/uL Low 4.2-5.4 [facility] Serum anion gap measurementO rdered By: Megan Montoya on 08-20-2024 Anion gap [Moles/Vol] 7 mmol/L 5-15 [facility] Serum globulin measurementOr dered By: Megan Montoya on 08-20-2024 Globulin (S) [Mass/Vol] 4.1 g/dL 2.2-4.2 [facility] Serum or plasma alanine hinojosa otransferase (ALT) measurementOrdered By: Megan Montoya on 08-20-2024 ALT [Catalytic activity/Vol] 18 U/L 13-56 [facility] Serum or plasma albumin reyna urement (mass/volume)Ordered By: Megan Montoya on 08-20-2024 Albumin [Mass/Vol] 2.7 g/dL Low 3.2-5.0 [facility] Serum or plasma alkaline silvia sphatase measurementOrdered By: Megan Montoya on 08-20-2024 ALP [Catalytic activity/Vol] 117 U/L 45-117 [facility] Serum or plasma calcium reyna urement (mass/volume)Ordered By: Megan Montoya on 08-20-2024 Calcium [Mass/Vol] 9.0 mg/dL 8.5-10.1 [facility] Serum or plasma creatinine m easurement (mass/volume)Ordered By: Megan Montoya on 08-20-2024 Creatinine [Mass/Vol] 0.98 mg/dL 0.55-1.02 [facility] Comment on above: The validity of the calculated GFR & GFRAA in patients over 70 years has not been determined. Clinical correlation is essential. Serum or plasma urea nitroge n measurement (mass/volume)Ordered By: Megan Montoya on 08-20-2024 Urea nitrogen [Mass/Vol] 11 mg/dL 7-18 [facility] Sodium levelOrdered By: Juan C Montoya on 08-20-2024 Sodium [Moles/Vol] 138 mmol/L 136-145 [facility] Total proteinOrdered By: Pola Montoya on 08-20-2024 Protein [Mass/Vol] 6.8 g/dL 6.4-8.2 [facility] White blood cell (WBC) count Ordered By: Megan Montoya on 08-20-2024 WBC (Bld) [#/Vol] 5.9 10*3/uL 4.4-11.0 [facility] [id number] 08-16-2024 [id number] Normal [facility] [id number] Normal [facility] [id number] MAR & Discharge med list transmitted to [facility] via [employer] per TCC request. Electronically signed by JESSICA Leone Normal [facility] [id number] Normal [facility] - Chemistry and C hemistry - challengeon 08-16-2024 Glucose [Mass/Vol] 120 mg/dL High 70 - 100 mg/dL [facility] No Panel Informationon 08-16 Interpretation and review of laboratory results Abnormal [facility] Performed by: [facility], [address] [place] [address], [place] [id number] CLIA ID: [id number] [facility] Nursing Noteon 08-16-2024 Nursing Note Patient picked up fo r transfer to [facility] by stretcher. Report already called to GENET Garcia. Normal [facility] Nursing Note Telephone report erin led to GENET Garcia at [facility]. Normal [facility] Progress Noteon 08-16-2024 Progress Note Normal [facility] 30on 08-15-2024 30 Normal [facility] [id number] 08-15-2024 [id number] Authorization is pending with [employer]. Ref# [id number] to be DC'd to [facility]. Dtr Fidel Sharma. CM to follow. Normal [facility] Progress Noteon 08-15-2024 Progress Note Normal [facility] 30on 08-14-2024 30 Normal [facility] [id number] 08-14-2024 [id number] Normal [facility] Progress Noteon 08-14-2024 Progress Note Normal [facility] Progress Note Normal [facility] Progress Note Normal [facility] 30on 08-13-2024 30 Normal [facility] 30 Normal [facility] [id number] 08-13-2024 [id number] Normal [facility] Progress Noteon 08-13-2024 Progress Note Normal [facility] Progress Note Normal [facility] 08-12-2024 30 Normal [facility] Progress Noteon 08-12-2024 Progress Note Normal [facility] 30on 08-11-2024 30 Normal [facility] 30 Normal [facility] [id number] 08-11-2024 [id number] CM noted DC orders i n place, Dgt touring facilities over the weekend. [facility] pending acceptance, updates sent via [employer]. Normal [facility] 08-11-2024 Progress Note Normal [facility] 30on 08-10-2024 30 Normal [facility] [id number] 08-10-2024 [id number] [facility] Progress Noteon 08-10-2024 Progress Note Normal [facility] [id number] 08-09-2024 [id number] Normal [facility] [id number] Normal [facility] [id number] Updated PT/OT notes placed to [facility] via [employer] per TCC request. Await review and response regarding ability to accept. TCC notified. Electronically signed by MANHOLE BUILDER Aracelis Gardiner [facility] [id number] Patient is medically ready for dc. PT/OT both continuing to recommend SNF. [facility] esthetician and manager medical spa asked to start auth. Plan to dc back to [facility] pending auth [facility] Progress Noteon 08-09-2024 Progress [facility] [id number] 08-08-2024 [id number] [facility] Progress Noteon 08-08-2024 Progress Note Normal [facility] Progress Note Normal [facility] Progress Note Normal [facility] 30on 08-07-2024 30 Normal [facility] 30 Normal [facility] 30 Normal [facility] [id number] 08-07-2024 [id number] [facility] Progress Noteon 08-07-2024 Progress Note Normal [facility] 30on 08-06-2024 30 Normal [facility] 30 Normal [facility] [id number] 08-06-2024 [id number] Pt cont's on IV AtBs '. Plan is for pt to return to [facility]. Auth and HECTOR needed prior to DC. CM to follow. [facility] [id number] [facility] Comprehensive metabolic 1998 panelon 08-06-2024 Albumin [Mass/Vol] 2.4 g/dL Low 3.4 - 4.8 g/dL [facility] ALP [Catalytic activity/Vol] 72 U/L 40 - 150 U/L [facility] ALT [Catalytic activity/Vol] 24 U/L NINF - 30 U/L [facility] Anion gap [Moles/Vol] 7 mmol/L 3 - 13 mmol/L [facility] AST [Catalytic activity/Vol] 21 U/L NINF - 34 U/L [facility] Bilirubin [Mass/Vol] 0.9 mg/dL NINF - 1.2 mg/dL [facility] Calcium [Mass/Vol] 8.4 mg/dL Low 8.8 - 10. 0 mg/dL [facility] Chloride [Moles/Vol] 115 mmol/L High 98 - 10 7 mmol/L [facility] CO2 [Moles/Vol] 17 mmol/L Low 23 - 31 mmol/L [facility] Creatinine [Mass/Vol] 0.91 mg/dL 0.57 - 1.11 mg/dL [facility] GFR/1.73 sq M.predicted (S/P/Bld) [Vol rate/Area] 62.3 mL/min - PINF [facility] Comment on above: Calculation based on the Chronic Kidney Disease Epidemiology Collaboration (CKD-EPI) equation refit without adjustment for race Glucose [Mass/Vol] 92 mg/dL 82 - 115 mg/dL [facility] Interpretation and review of laboratory results Abnormal [facility] Potassium [Moles/Vol] 3.8 mmol/L 3.5 - 5.1 mmol/L [facility] Comment on above: Plasma potassium chris ues may be up to 0.5 mmol/L lower than serum values. Protein [Mass/Vol] 5.5 g/dL Low 6.4 - 8.3 g/dL [facility] Sodium [Moles/Vol] 139 mmol/L 136 - 145 mmol/L [facility] Urea nitrogen [Mass/Vol] 9 mg/dL 9 - 23 mg/dL [facility] Consulton 08-06-2024 Consult Normal [facility] Progress Noteon 08-06-2024 Progress Note Normal [facility] Progress Note Normal [facility] 30on 08-05-2024 30 Normal [facility] CBC W Auto Differential pane l (Bld)Ordered By: Frank Milligan on 08-05-2024 Basophils (Bld) [#/Vol] 0 10*3/uL 0.0 - 0.2 10*3/uL [facility] Basophils/100 WBC (Bld) 0.3 % 0.0 - 2.0 % [facility] Eosinophils (Bld) [#/Vol] 0.1 10*3/uL 0.0 - 0.5 10*3/uL [facility] Eosinophils/100 WBC (Bld) 1.6 % 0.0 - 6.0 % [facility] [employer] Erythrocyte distribution width (RBC) [Ratio] 18.9 % High 11.5 - 15.0 % [facility] Hematocrit (Bld) [Volume fraction] 33.3 % Low 35.0 - 47.0 % [facility] Hemoglobin (Bld) [Mass/Vol] 10.3 g/dL Low 11.7 - 16.0 g/dL [facility] Immature granulocytes (Bld) [#/Vol] 0.1 10*3/uL High NINF - 0.1 10*3/uL [facility] Immature granulocytes/100 WBC (Bld) 0.7 % 0.0 - 2.0 % [facility] Interpretation and review of laboratory results Abnormal [facility] Lymphocytes (Bld) [#/Vol] 1.1 10*3/uL 1.0 - 4.3 10*3/uL [facility] Lymphocytes/100 WBC (Bld) 15.6 % 15.0 - 45.0 % [facility] MCH (RBC) [Entitic mass] 26 pg 26.0 - 34.0 pg [facility] MCHC (RBC) [Mass/Vol] 30.9 % 30.5 - 36.0 % [facility] MCV (RBC) [Entitic vol] 84.1 fL 77.0 - 99.0 fL [facility] Monocytes (Bld) [#/Vol] 0.7 10*3/uL 0.0 - 0.9 10*3/uL [facility] Monocytes/100 WBC (Bld) 9.9 % 5.0 - 13.0 % [facility] Neutrophils (Bld) [#/Vol] 5.3 10*3/uL 1.8 - 7.5 10*3/uL [facility] Neutrophils/100 WBC (Bld) 71.9 % 38.0 - 82.0 % [facility] Nucleated RBC/100 WBC (Bld) [Ratio] 0 % [facility] Platelet mean volume (Bld) [Entitic vol] 9.2 fL 9.0 - 12.7 fL [facility] [employer] Platelets (Bld) [#/Vol] 235 10*3/uL 140 - 440 10*3/uL [facility] RBC (Bld) [#/Vol] 3.96 10*6/uL 3.80 - 5.2 0 10*6/uL [facility] Health WBC (Bld) [#/Vol] 7.3 10*3/uL 3.6 - 10.7 10*3/uL [facility] CBC W Auto Differential pane l (Bld)Ordered By: Aden Baires on 08-05-2024 Basophils (Bld) [#/Vol] 0 10*3/uL 0.0 - 0.2 10*3/uL [facility] Basophils/100 WBC (Bld) 0.3 % 0.0 - 2.0 % [facility] Eosinophils (Bld) [#/Vol] 0.1 10*3/uL 0.0 - 0.5 10*3/uL [facility] Eosinophils/100 WBC (Bld) 1.5 % 0.0 - 6.0 % [facility] Erythrocyte distribution width (RBC) [Ratio] 19.2 % High 11.5 - 15.0 % [facility] Hematocrit (Bld) [Volume fraction] 31.9 % Low 35.0 - 47.0 % [facility] Hemoglobin (Bld) [Mass/Vol] 9.9 g/dL Low 11.7 - 16.0 g/dL [facility] Immature granulocytes (Bld) [#/Vol] 0 10*3/uL NINF - 0.1 10*3/uL [facility] Immature granulocytes/100 WBC (Bld) 0.5 % 0.0 - 2.0 % [facility] Interpretation and review of laboratory results Abnormal [facility] Lymphocytes (Bld) [#/Vol] 1.1 10*3/uL 1.0 - 4.3 10*3/uL [facility] Lymphocytes/100 WBC (Bld) 16.6 % 15.0 - 45.0 % [facility] MCH (RBC) [Entitic mass] 26.2 pg 26.0 - 34.0 pg [facility] MCHC (RBC) [Mass/Vol] 31 % 30.5 - 36.0 % [facility] MCV (RBC) [Entitic vol] 84.4 fL 77.0 - 99.0 fL [facility] Monocytes (Bld) [#/Vol] 0.6 10*3/uL 0.0 - 0.9 10*3/uL [facility] Monocytes/100 WBC (Bld) 9.1 % 5.0 - 13.0 % [facility] Neutrophils (Bld) [#/Vol] 4.7 10*3/uL 1.8 - 7.5 10*3/uL [facility] Neutrophils/100 WBC (Bld) 72 % 38.0 - 82.0 % [facility] Nucleated RBC/100 WBC (Bld) [Ratio] 0 % [facility] Platelet mean volume (Bld) [Entitic vol] 10 fL 9.0 - 12.7 fL [facility] Platelets (Bld) [#/Vol] 242 10*3/uL 140 - 440 10*3/uL [facility] RBC (Bld) [#/Vol] 3.78 10*6/uL Low 3.80 - 5.2 0 10*6/uL [facility] WBC (Bld) [#/Vol] 6.5 10*3/uL 3.6 - 10.7 10*3/uL [facility] CBC WITH AUTO DIFFERENTIALon 08-05-2024 Basophils (Bld) [#/Vol] 0.0 10*3/uL Normal 0.0-0.[address] [facility] Comment on above: Performed By: #### L [id number] ####Drapery Counselor: VELMA VALADEZ ([phone])[facility])[address] [place] [address] Basophils/100 WBC (Bld) 0.3 % Normal 0.0-2.0 [facility] Comment on above: Performed By: #### L [id number] ####Drapery Counselor: VELMA VALADEZ ([phone])[facility] ([facility])[address] [place] [address] [place] Eosinophils (Bld) [#/Vol] 0.1 10*3/uL Normal 0.0-0.5 [facility] Comment on above: Performed By: #### L [id number] ####Drapery Counselor: VELMA VALADEZ ([phone])[facility] ([facility])[address] [place] [address] [place] Eosinophils/100 WBC (Bld) 1.6 % Normal 0.0-6.0 [facility] Comment on above: Performed By: #### L [id number] ####Drapery Counselor: VELMA VALADEZ ([phone])[address] Erythrocyte distribution width (RBC) [Ratio] 18.9 % High 11.5-15.0 [facility] Comment on above: Performed By: #### L [id number] ####Drapery Counselor: VELMA VALADEZ ([phone])[address] Hematocrit (Bld) [Volume fraction] 33.3 % Low 35.0-47.0 [facility] Comment on above: Performed By: #### L [id number] ####Drapery Counselor: VELMA VALADEZ ([phone])[address] Hemoglobin (Bld) [Mass/Vol] 10.3 g/dL Low 11.7-16.0 [facility] Comment on above: Performed By: #### L [id number] ####Drapery Counselor: VELMA VALADEZ ([phone])[address] IMMATURE GRANS % 0.7 % Normal 0.0-2.0 [facility] Comment on above: Performed By: #### L [id number] ####Drapery Counselor: VELMA VALADEZ ([phone])[address] IMMATURE GRANS ABSOLUTE 0.1 10*3/uL High <0.1 [facility] Comment on above: Performed By: #### L [id number] ####Drapery Counselor: VELMA VALADEZ ([phone])[address] Lymphocytes (Bld) [#/Vol] 1.1 10*3/uL Normal 1.0-4.[address] [facility] Comment on above: Performed By: #### L [id number] ####Drapery Counselor: VELMA VALADEZ ([phone])[facility])[address] [place] [address] Lymphocytes/100 WBC (Bld) 15.6 % Normal 15.0-45.0 [facility] Comment on above: Performed By: #### L [id number] ####Drapery Counselor: VELMA VALADEZ ([phone])[facility])[address] [place] [address] MCH (RBC) [Entitic mass] 26.0 pg Normal 26.0-34.0 [facility] Comment on above: Performed By: #### L [id number] ####Drapery Counselor: VELMA VALADEZ ([phone])[facility])[address] [place] [address] MCHC 30.9 % Normal 30.5-36.0 [facility] Comment on above: Performed By: #### L [id number] ####Drapery Counselor: VELMA VALADEZ ([phone])[facility] ([facility])[address] [place] [address] MCV (RBC) [Entitic vol] 84.1 fL Normal 77.0-99.0 [facility] Comment on above: Performed By: #### L [id number] ####Drapery Counselor: VELMA VALADEZ ([phone])[facility])[address] [place] [address] Monocytes (Bld) [#/Vol] 0.7 10*3/uL Normal 0.0-0.9 [facility] Comment on above: Performed By: #### L [id number] ####Drapery Counselor: VELMA VALADEZ ([phone])[facility])[address] [place] [address] Monocytes/100 WBC (Bld) 9.9 % Normal 5.0-13.0 [facility] Comment on above: Performed By: #### L [id number] ####Drapery Counselor: VELMA VALADEZ ([phone])[facility])[address] [place] [address] NEUTROPHILS ABSOLUTE 5.3 10*3/uL Normal 1.8-7.5 [facility] Comment on above: Performed By: #### L [id number] ####Drapery Counselor: VELMA VALADEZ ([phone])[facility] ([facility])[address] [place] [address] Neutrophils/100 WBC (Bld) 71.9 % Normal 38.0-82.0 [facility] Comment on above: Performed By: #### L [id number] ####Drapery Counselor: VELMA VALADEZ ([phone])[facility] ([facility])[address] [place] [address] NRBC 0.0 /100 WBCs Normal 0.0-2.0 [facility] Comment on above: Performed By: #### L [id number] ####Drapery Counselor: VELMA VALADEZ ([phone])[facility] ([facility])[address] [place] [address] Platelet mean volume (Bld) [Entitic vol] 9.2 fL Normal 9.0-12.7 [facility] Comment on above: Performed By: #### L [id number] ####Drapery Counselor: VELMA VALADEZ ([phone])[facility] ([facility])[address] [place] [address] Platelets (Bld) [#/Vol] 235 10*3/uL Normal 140-440 [facility] Comment on above: Performed By: #### L [id number] ####Drapery Counselor: VELMA VALADEZ ([phone])[facility] ([facility])[address] [place] [address] RBC (Bld) [#/Vol] 3.96 10*6/uL Normal 3.80-5.20 [facility] Comment on above: Performed By: #### L [id number] ####Drapery Counselor: VELMA VALADEZ ([phone])[facility] ([facility])[address] [place] [address] [place] WBC (Bld) [#/Vol] 7.3 10*3/uL Normal 3.6-10.[address] [facility] Comment on above: Performed By: #### L [id number] ####Drapery Counselor: VELMA VALADEZ ([phone])[facility])[address] [place] [address] Basophils (Bld) [#/Vol] 0.0 10*3/uL Normal 0.0-0.[address] [facility] Comment on above: Performed By: #### L [id number] ####Drapery Counselor: VELMA VALADEZ ([phone])[facility] ([facility])[address] [place] [address] Basophils/100 WBC (Bld) 0.3 % Normal 0.0-2.0 [facility] Comment on above: Performed By: #### L [id number] ####Drapery Counselor: VLEMA VALADEZ ([phone])[facility])[address] [place] [address] Eosinophils (Bld) [#/Vol] 0.1 10*3/uL Normal 0.0-0.5 [facility] Comment on above: Performed By: #### L [id number] ####Drapery Counselor: VELMA VALADEZ ([phone])[facility])[address] [place] [address] Eosinophils/100 WBC (Bld) 1.5 % Normal 0.0-6.0 [facility] Comment on above: Performed By: #### L [id number] ####Drapery Counselor: VELMA VALADEZ ([phone])[facility])[address] [place] [address] Erythrocyte distribution width (RBC) [Ratio] 19.2 % High 11.5-15.0 [facility] Comment on above: Performed By: #### L [id number] ####Drapery Counselor: VELMA VALADEZ ([phone])[facility])[address] [place] [address] Hematocrit (Bld) [Volume fraction] 31.9 % Low 35.0-47.0 [facility] Comment on above: Performed By: #### L [id number] ####Drapery Counselor: VELMA VALADEZ ([phone])[facility])[address] [place] [address] Hemoglobin (Bld) [Mass/Vol] 9.9 g/dL Low 11.7-16.0 [facility] Comment on above: Performed By: #### L [id number] ####Drapery Counselor: VELMA VALADEZ ([phone])[facility])[address] [place] [address] IMMATURE GRANS % 0.5 % Normal 0.0-2.0 [facility] Comment on above: Performed By: #### L [id number] ####Drapery Counselor: VELMA VALADEZ ([phone])[facility])[address] [place] [address] IMMATURE GRANS ABSOLUTE 0.0 10*3/uL Normal <0.1 [facility] Comment on above: Performed By: #### L [id number] ####Drapery Counselor: VELMA VALADEZ ([phone])[facility])[address] [place] [address] Lymphocytes (Bld) [#/Vol] 1.1 10*3/uL Normal 1.0-4.3 [facility] Comment on above: Performed By: #### L [id number] ####Drapery Counselor: VELMA VALADEZ ([phone])[facility])[address] [place] [address] Lymphocytes/100 WBC (Bld) 16.6 % Normal 15.0-45.0 [facility] Comment on above: Performed By: #### L [id number] ####Drapery Counselor: VELMA VALADEZ ([phone])[facility])[address] [place] [address] MCH (RBC) [Entitic mass] 26.2 pg Normal 26.0-34.0 [facility] Comment on above: Performed By: #### L [id number] ####Drapery Counselor: VELMA [phone])[facility] ([facility])[address] [place] [address] MCHC 31.0 % Normal 30.5-36.0 [facility] Comment on above: Performed By: #### L [id number] ####Drapery Counselor: VELMA VALADEZ ([phone])[facility] ([facility])[address] [place] [address] MCV (RBC) [Entitic vol] 84.4 fL Normal 77.0-99.0 [facility] Comment on above: Performed By: #### L [id number] ####Drapery Counselor: VELMA VALADEZ ([phone])[facility] ([facility])[address] [place] [address] Monocytes (Bld) [#/Vol] 0.6 10*3/uL Normal 0.0-0.9 [facility] Comment on above: Performed By: #### L [id number] ####Drapery Counselor: VELMA VALADEZ ([phone])[facility])[address] [place] [address] Monocytes/100 WBC (Bld) 9.1 % Normal 5.0-13.0 [facility] Comment on above: Performed By: #### L [id number] ####Drapery Counselor: VELMA VALADEZ ([phone])[facility] ([facility])[address] [place] [address] NEUTROPHILS ABSOLUTE 4.7 10*3/uL Normal 1.8-7.5 [facility] Comment on above: Performed By: #### L [id number] ####Drapery Counselor: VELMA VALADEZ ([phone])[facility])[address] [place] [address] Neutrophils/100 WBC (Bld) 72.0 % Normal 38.0-82.0 [facility] Comment on above: Performed By: #### L [id number] ####Drapery Counselor: VELMA VALADEZ ([phone])[facility])[address] [place] [address] NRBC 0.0 /100 WBCs Normal 0.0-2.0 [facility] Comment on above: Performed By: #### L [id number] ####Drapery Counselor: VELMA VALADEZ ([phone])[facility])[address] [place] [address] Platelet mean volume (Bld) [Entitic vol] 10.0 fL Normal 9.0-12.7 [facility] Comment on above: Performed By: #### L [id number] ####Drapery Counselor: VELMA VALADEZ ([phone])[facility])[address] [place] [address] Platelets (Bld) [#/Vol] 242 10*3/uL Normal 140-440 [facility] Comment on above: Performed By: #### L [id number] ####Drapery Counselor: VELMA VALADEZ ([phone])[facility])[address] [place] [address] RBC (Bld) [#/Vol] 3.78 10*6/uL Low 3.80-5.20 [facility] Comment on above: Performed By: #### L [id number] ####Drapery Counselor: VELMA VALADEZ ([phone])[facility])[address] [place] [address] WBC (Bld) [#/Vol] 6.5 10*3/uL Normal 3.6-10.7 [facility] Comment on above: Performed By: #### L [id number] ####Drapery Counselor: VELMA VALADEZ ([phone])[facility] ([facility])[address] [place] [address] COMPREHENSIVE METABOLIC PANE Gilberto 08-05-2024 Albumin [Mass/Vol] 2.4 g/dL Low 3.4-4.8 [facility] Comment on above: Performed By: #### L [id number] ####Drapery Counselor: VELMA VALADEZ ([phone])[facility])[address] [place] [address] ALP [Catalytic activity/Vol] 72 U/L Normal 40-150 [facility] Comment on above: Performed By: #### L [id number] ####Drapery Counselor: VELMA VALADEZ ([phone])[facility])[address] [place] [address] ALT [Catalytic activity/Vol] 24 U/L Normal <30 [facility] Comment on above: Performed By: #### L [id number] ####Drapery Counselor: VELMA VALADEZ ([phone])[facility])[address] [place] [address] Anion gap [Moles/Vol] 7 mmol/L Normal 3-13 [facility] Comment on above: Performed By: #### L [id number] ####Drapery Counselor: VELMA VALADEZ ([phone])[facility])[address] [place] [address] AST [Catalytic activity/Vol] 21 U/L Normal <34 [facility] Comment on above: Performed By: #### L [id number] ####Drapery Counselor: VELMA VALADEZ ([phone])[facility] ([facility])[address] [place] [address] Bilirubin [Mass/Vol] 0.9 mg/dL Normal <1.2 [facility] Comment on above: Performed By: #### L [id number] ####Drapery Counselor: VELMA VALADEZ ([phone])[facility] ([facility])[address] [place] [address] Calcium [Mass/Vol] 8.4 mg/dL Low 8.8-10.0 [facility] Comment on above: Performed By: #### L [id number] ####Drapery Counselor: VELMA VALADEZ ([phone])[facility] ([facility])[address] [place] [address] [place] Chloride [Moles/Vol] 115 mmol/L High 98-107 [facility] Comment on above: Performed By: #### L [id number] ####Drapery Counselor: VELMA VALADEZ ([phone])[facility] ([facility])[address] [place] [address] [place] CO2 [Moles/Vol] 17 mmol/L Low 23-31 [facility] Comment on above: Performed By: #### L [id number] ####Drapery Counselor: VELMA VALADEZ ([phone])[facility])[address] [place] [address] Creatinine [Mass/Vol] 0.91 mg/dL Normal 0.57-1.11 [facility] Comment on above: Performed By: #### L [id number] ####Drapery Counselor: VELMA VALADEZ ([phone])[facility])[address] [place] [address] [place] GLOMERULAR FILTRATION RATE ML/MIN/1.73 SQ M.PREDICTED 62.3 mL/min/1.73m*2 Normal >60.0 [facility] Comment on above: Result Comment: Calc ulation based on the Chronic Kidney Disease Epidemiology Collaboration (CKD-EPI) equation refit without adjustment for race Performed By: #### L [id number] ####Drapery Counselor: VELMA VALADEZ ([phone])[facility])[address] [place] [address] [place] Glucose [Mass/Vol] 92 mg/dL Normal 82-115 [facility] Comment on above: Performed By: #### L [id number] ####Drapery Counselor: VELMA VALADEZ ([phone])[facility])[address] [place] [address] [place] Potassium [Moles/Vol] 3.8 mmol/L Normal 3.5-5.1 [facility] Comment on above: Result Comment: [facility] potassium values may be up to 0.5 mmol/L lower than serum values. Performed By: #### L [id number] ####Drapery Counselor: VELMA VALADEZ ([phone])[facility] ([facility])[address] [place] [address] [place] Protein [Mass/Vol] 5.5 g/dL Low 6.4-8.3 [facility] Comment on above: Performed By: #### L [id number] ####Drapery Counselor: VELMA VALADEZ ([phone])[facility])[address] [place] [address] Sodium [Moles/Vol] 139 mmol/L Normal 136-145 [facility] Comment on above: Performed By: #### L [id number] ####Drapery Counselor: VELMA VALADEZ ([phone])[facility])[address] [place] [address] Urea nitrogen [Mass/Vol] 9 mg/dL Normal 9-23 [facility] Comment on above: Performed By: #### L [id number] ####Drapery Counselor: VELMA VALDAEZ ([phone])[facility] ([facility])[address] [place] [address] Albumin [Mass/Vol] 2.3 g/dL Low 3.4-4.8 [facility] Comment on above: Performed By: #### L [id number] ####Drapery Counselor: VELMA VALADEZ ([phone])[facility] ([facility])[address] [place] [address] ALP [Catalytic activity/Vol] 74 U/L Normal 40-150 [facility] Comment on above: Performed By: #### L [id number] ####Drapery Counselor: VELMA VALADEZ ([phone])[facility])[address] [place] [address] ALT [Catalytic activity/Vol] 27 U/L Normal <30 [facility] Comment on above: Performed By: #### L [id number] ####Drapery Counselor: VELMA VALADEZ ([phone])[facility])[address] [place] [address] Anion gap [Moles/Vol] 5 mmol/L Normal 3-13 [facility] Comment on above: Performed By: #### L [id number] ####Drapery Counselor: VELMA VALADEZ ([phone])[facility])[address] [place] [address] AST [Catalytic activity/Vol] 24 U/L Normal <34 [facility] Comment on above: Performed By: #### L [id number] ####Drapery Counselor: VELMA [phone])[facility] [place] [address] Bilirubin [Mass/Vol] 0.6 mg/dL Normal <1.2 [facility] Comment on above: Performed By: #### L [id number] ####Drapery Counselor: VELMA VALADEZ ([phone])[facility])[address] [place] [address] Calcium [Mass/Vol] 8.1 mg/dL Low 8.8-10.0 [facility] Comment on above: Performed By: #### L [id number] ####Drapery Counselor: VELMA VALADEZ ([phone])[facility] [place] [address] Chloride [Moles/Vol] 108 mmol/L High 98-107 [facility] Comment on above: Performed By: #### L [id number] ####Drapery Counselor: VELMA VALADEZ ([phone])[facility] [place] [address] CO2 [Moles/Vol] 21 mmol/L Low 23-31 [facility] Comment on above: Performed By: #### L [id number] ####Drapery Counselor: VELMA VALADEZ ([phone])[facility] [place] [address] Creatinine [Mass/Vol] 0.89 mg/dL Normal 0.57-1.11 [facility] Comment on above: Performed By: #### L [id number] ####Drapery Counselor: VELMA VALADEZ ([phone])[facility])[address] [place] [address] GLOMERULAR FILTRATION RATE ML/MIN/1.73 SQ M.PREDICTED 64.0 mL/min/1.73m*2 Normal >60.0 [facility] Comment on above: Result Comment: Calc ulation based on the Chronic Kidney Disease Epidemiology Collaboration (CKD-EPI) equation refit without adjustment for race Performed By: #### L [id number] ####Drapery Counselor: VELMA VALADEZ ([phone])[facility])[address] [place] [address] Glucose [Mass/Vol] 85 mg/dL Normal 82-115 [facility] Comment on above: Performed By: #### L [id number] ####Drapery Counselor: VELMA VALADEZ ([phone])[facility])[address] [place] [address] Potassium [Moles/Vol] 3.8 mmol/L Normal 3.5-5.1 [facility] Comment on above: Result Comment: [facility] potassium values may be up to 0.5 mmol/L lower than serum values. Performed By: #### L [id number] ####Drapery Counselor: VELMA VALADEZ ([phone])[facility])[address] [place] [address] Protein [Mass/Vol] 5.2 g/dL Low 6.4-8.3 [facility] Comment on above: Performed By: #### L [id number] ####Drapery Counselor: VELMA VALADEZ ([phone])[facility])[address] [place] [address] Sodium [Moles/Vol] 134 mmol/L Low 136-145 [facility] Comment on above: Performed By: #### L [id number] ####Drapery Counselor: VELMA VALADEZ ([phone])[facility])[address] [place] [address] Urea nitrogen [Mass/Vol] 13 mg/dL Normal 9-23 [facility] Comment on above: Performed By: #### L [id number] ####Drapery Counselor: VELMA VALADEZ ([phone])[facility])[address] [place] [address] Comprehensive metabolic 1998 panelon 08-05-2024 Albumin [Mass/Vol] 2.3 g/dL Low 3.4 - 4.8 g/dL [facility] ALP [Catalytic activity/Vol] 74 U/L 40 - 150 U/L [facility] ALT [Catalytic activity/Vol] 27 U/L NINF - 30 U/L [facility] Anion gap [Moles/Vol] 5 mmol/L 3 - 13 mmol/L [facility] AST [Catalytic activity/Vol] 24 U/L NINF - 34 U/L [facility] Bilirubin [Mass/Vol] 0.6 mg/dL NINF - 1.2 mg/dL [facility] Calcium [Mass/Vol] 8.1 mg/dL Low 8.8 - 10. 0 mg/dL [facility] Chloride [Moles/Vol] 108 mmol/L High 98 - 10 7 mmol/L [facility] CO2 [Moles/Vol] 21 mmol/L Low 23 - 31 mmol/L [facility] Creatinine [Mass/Vol] 0.89 mg/dL 0.57 - 1.11 mg/dL [facility] GFR/1.73 sq M.predicted (S/P/Bld) [Vol rate/Area] 64 mL/min - PINF [facility] Comment on above: Calculation based on the Chronic Kidney Disease Epidemiology Collaboration (CKD-EPI) equation refit without adjustment for race Glucose [Mass/Vol] 85 mg/dL 82 - 115 mg/dL [facility] Interpretation and review of laboratory results Abnormal [facility] Potassium [Moles/Vol] 3.8 mmol/L 3.5 - 5.1 mmol/L [facility] Comment on above: Plasma potassium chris ues may be up to 0.5 mmol/L lower than serum values. Protein [Mass/Vol] 5.2 g/dL Low 6.4 - 8.3 g/dL [facility] Sodium [Moles/Vol] 134 mmol/L Low 136 - 145 mmol/L [facility] Urea nitrogen [Mass/Vol] 13 mg/dL 9 - 23 mg/dL [facility] Progress Noteon 08-05-2024 Progress Note Normal [facility] Progress Note Normal [facility] 30on 08-04-2024 30 Normal [facility] 30 Normal [facility] CBC W Auto Differential pane l (Bld)Ordered By: Devika Eisenberg on 08-04-2024 Basophils (Bld) [#/Vol] 0 10*3/uL 0.0 - 0.2 10*3/uL [facility] Basophils/100 WBC (Bld) 0.2 % 0.0 - 2.0 % [facility] Eosinophils (Bld) [#/Vol] 0.1 10*3/uL 0.0 - 0.5 10*3/uL [facility] Eosinophils/100 WBC (Bld) 1.4 % 0.0 - 6.0 % [facility] [employer] Erythrocyte distribution width (RBC) [Ratio] 19.3 % High 11.5 - 15.0 % [facility] Hematocrit (Bld) [Volume fraction] 33 % Low 35.0 - 47.0 % [facility] Hemoglobin (Bld) [Mass/Vol] 10 g/dL Low 11.7 - 16.0 g/dL [facility] [employer] Immature granulocytes (Bld) [#/Vol] 0 10*3/uL NINF - 0.1 10*3/uL [facility] Immature granulocytes/100 WBC (Bld) 0.5 % 0.0 - 2.0 % [facility] Interpretation and review of laboratory results Abnormal [facility] Lymphocytes (Bld) [#/Vol] 1 10*3/uL 1.0 - 4.3 10*3/uL [facility] Lymphocytes/100 WBC (Bld) 17.7 % 15.0 - 45.0 % [facility] MCH (RBC) [Entitic mass] 25.8 pg Low 26.0 - 34.0 pg [facility] MCHC (RBC) [Mass/Vol] 30.3 % Low 30.5 - 36.0 % [facility] MCV (RBC) [Entitic vol] 85.1 fL 77.0 - 99.0 fL [facility] Monocytes (Bld) [#/Vol] 0.5 10*3/uL 0.0 - 0.9 10*3/uL [facility] Monocytes/100 WBC (Bld) 9.5 % 5.0 - 13.0 % [facility] Neutrophils (Bld) [#/Vol] 3.9 10*3/uL 1.8 - 7.5 10*3/uL [facility] Neutrophils/100 WBC (Bld) 70.7 % 38.0 - 82.0 % [facility] Nucleated RBC/100 WBC (Bld) [Ratio] 0 % [facility] Platelet mean volume (Bld) [Entitic vol] 9.8 fL 9.0 - 12.7 fL [facility] Platelets (Bld) [#/Vol] 280 10*3/uL 140 - 440 10*3/uL [facility] RBC (Bld) [#/Vol] 3.88 10*6/uL 3.80 - 5.2 0 10*6/uL [facility] WBC (Bld) [#/Vol] 5.6 10*3/uL 3.6 - 10.7 10*3/uL [facility] CBC WITH AUTO DIFFERENTIALon 08-04-2024 Basophils (Bld) [#/Vol] 0.0 10*3/uL Normal 0.0-0.2 [facility] Comment on above: Performed By: #### L [id number] ####Drapery Counselor: VELMA VALADEZ ([phone])[facility])[address] [place] [address] Basophils/100 WBC (Bld) 0.2 % Normal 0.0-2.0 [facility] Comment on above: Performed By: #### L [id number] ####Drapery Counselor: VELMA VALADEZ ([phone])[facility])[address] [place] [address] Eosinophils (Bld) [#/Vol] 0.1 10*3/uL Normal 0.0-0.5 [facility] Comment on above: Performed By: #### L [id number] ####Drapery Counselor: VELMA VALADEZ ([phone])[facility])[address] [place] [address] Eosinophils/100 WBC (Bld) 1.4 % Normal 0.0-6.0 [facility] Comment on above: Performed By: #### L [id number] ####Drapery Counselor: VELMA VALADEZ ([phone])[facility])[address] [place] [address] Erythrocyte distribution width (RBC) [Ratio] 19.3 % High 11.5-15.0 [facility] Comment on above: Performed By: #### L [id number] ####Drapery Counselor: VELMA VALADEZ ([phone])[facility])[address] [place] [address] Hematocrit (Bld) [Volume fraction] 33.0 % Low 35.0-47.0 [facility] Comment on above: Performed By: #### L [id number] ####Drapery Counselor: VELMA VALADEZ ([phone])[facility])[address] [place] [address] Hemoglobin (Bld) [Mass/Vol] 10.0 g/dL Low 11.7-16.0 [facility] Comment on above: Performed By: #### L [id number] ####Drapery Counselor: VELMA VALADEZ ([phone])[facility])[address] [place] [address] IMMATURE GRANS % 0.5 % Normal 0.0-2.0 [facility] Comment on above: Performed By: #### L [id number] ####Drapery Counselor: VELMA VALADEZ ([phone])[facility])[address] [place] [address] IMMATURE GRANS ABSOLUTE 0.0 10*3/uL Normal <0.1 [facility] Comment on above: Performed By: #### L [id number] ####Drapery Counselor: VELMA VALADEZ ([phone])[facility])[address] [place] [address] Lymphocytes (Bld) [#/Vol] 1.0 10*3/uL Normal 1.0-4.3 [facility] Comment on above: Performed By: #### L [id number] ####Drapery Counselor: VELMA VALADEZ ([phone])[facility])[address] [place] [address] Lymphocytes/100 WBC (Bld) 17.7 % Normal 15.0-45.0 [facility] Comment on above: Performed By: #### L [id number] ####Drapery Counselor: VELMA VALADEZ ([phone])[facility])[address] [place] [address] MCH (RBC) [Entitic mass] 25.8 pg Low 26.0-34.0 [facility] Comment on above: Performed By: #### L [id number] ####Drapery Counselor: VELMA [phone])[facility])[address] [place] [address] MCHC 30.3 % Low 30.5-36.0 [facility] Comment on above: Performed By: #### L [id number] ####Drapery Counselor: VELMA VALADEZ ([phone])[facility] ([facility])[address] [place] [address] MCV (RBC) [Entitic vol] 85.1 fL Normal 77.0-99.0 [facility] Comment on above: Performed By: #### L [id number] ####Drapery Counselor: VELMA VALADEZ ([phone])[facility] ([facility])[address] [place] [address] Monocytes (Bld) [#/Vol] 0.5 10*3/uL Normal 0.0-0.9 [facility] Comment on above: Performed By: #### L [id number] ####Drapery Counselor: VELMA VALADEZ ([phone])[facility] ([facility])[address] [place] [address] Monocytes/100 WBC (Bld) 9.5 % Normal 5.0-13.0 [facility] Comment on above: Performed By: #### L [id number] ####Drapery Counselor: VELMA VALADEZ ([phone])[facility] ([facility])[address] [place] [address] NEUTROPHILS ABSOLUTE 3.9 10*3/uL Normal 1.8-7.5 [facility] Comment on above: Performed By: #### L [id number] ####Drapery Counselor: VELMA VALADEZ ([phone])[facility] ([facility])[address] [place] [address] Neutrophils/100 WBC (Bld) 70.7 % Normal 38.0-82.0 [facility] Comment on above: Performed By: #### L [id number] ####Drapery Counselor: VELMA VALADEZ ([phone])[facility] ([facility])[address] [place] [address] NRBC 0.0 /100 WBCs Normal 0.0-2.0 [facility] Comment on above: Performed By: #### L [id number] ####Drapery Counselor: VELMA VALADEZ ([phone])[facility])[address] [place] [address] Platelet mean volume (Bld) [Entitic vol] 9.8 fL Normal 9.0-12.7 [facility] Comment on above: Performed By: #### L [id number] ####Drapery Counselor: VELMA VALADEZ ([phone])[facility] ([facility])[address] [place] [address] Platelets (Bld) [#/Vol] 280 10*3/uL Normal 140-440 [facility] Comment on above: Performed By: #### L [id number] ####Drapery Counselor: VELMA VALADEZ ([phone])[facility])[address] [place] [address] RBC (Bld) [#/Vol] 3.88 10*6/uL Normal 3.80-5.20 [facility] Comment on above: Performed By: #### L [id number] ####Drapery Counselor: VELMA VALADEZ ([phone])[facility])[address] [place] [address] WBC (Bld) [#/Vol] 5.6 10*3/uL Normal 3.6-10.7 [facility] Comment on above: Performed By: #### L [id number] ####Drapery Counselor: VELMA VALADEZ ([phone])[facility] ([facility])[address] [place] [address] COMPREHENSIVE METABOLIC PANE Gilberto 08-04-2024 Albumin [Mass/Vol] 2.3 g/dL Low 3.4-4.8 [facility] Comment on above: Performed By: #### L AB17 ####Drapery Counselor: VELMA VALADEZ ([phone])[facility])[address] [place] [address] ALP [Catalytic activity/Vol] 68 U/L Normal 40-150 [facility] Comment on above: Performed By: #### L AB17 ####Drapery Counselor: VELMA VALADEZ ([phone])[facility] ([facility])[address] [place] [address] ALT [Catalytic activity/Vol] 26 U/L Normal <30 [facility] Comment on above: Performed By: #### L AB17 ####Drapery Counselor: VELMA VALADEZ ([phone])[facility] ([facility])[address] [place] [address] Anion gap [Moles/Vol] 6 mmol/L Normal 3-13 [facility] Comment on above: Performed By: #### L AB17 ####Drapery Counselor: VELMA VALADEZ ([phone])[facility])[address] [place] [address] AST [Catalytic activity/Vol] 25 U/L Normal <34 [facility] Comment on above: Performed By: #### L AB17 ####Drapery Counselor: VELMA VALADEZ ([phone])[facility] ([facility])[address] [place] [address] Bilirubin [Mass/Vol] 0.5 mg/dL Normal <1.2 [facility] Comment on above: Performed By: #### L AB17 ####Drapery Counselor: VELMA VALADEZ ([phone])[facility] ([facility])[address] [place] [address] Calcium [Mass/Vol] 8.2 mg/dL Low 8.8-10.0 [facility] Comment on above: Performed By: #### L AB17 ####Drapery Counselor: VELMA VALADEZ ([phone])[facility] ([facility])[address] [place] [address] [place] Chloride [Moles/Vol] 112 mmol/L High 98-107 [facility] Comment on above: Performed By: #### L AB17 ####Drapery Counselor: VELMA VALADEZ ([phone])[facility] ([facility])[address] [place] [address] [place] CO2 [Moles/Vol] 21 mmol/L Low 23-31 [facility] Comment on above: Performed By: #### L AB17 ####Drapery Counselor: VELMA VALADEZ ([phone])[facility])[address] [place] [address] Creatinine [Mass/Vol] 1.13 mg/dL High 0.57-1.11 [facility] Comment on above: Performed By: #### L AB17 ####Drapery Counselor: VELMA VALADEZ ([phone])[facility])[address] [place] [address] GLOMERULAR FILTRATION RATE ML/MIN/1.73 SQ M.PREDICTED 48.1 mL/min/1.73m*2 Low >60.0 [facility] Comment on above: Result Comment: Calc ulation based on the Chronic Kidney Disease Epidemiology Collaboration (CKD-EPI) equation refit without adjustment for race Performed By: #### L AB17 ####Drapery Counselor: VELMA VALADEZ ([phone])[facility] ([facility])[address] [place] [address] Glucose [Mass/Vol] 153 mg/dL High 82-115 [facility] Comment on above: Performed By: #### L AB17 ####Drapery Counselor: VELMA VALADEZ ([phone])[facility])[address] [place] [address] Potassium [Moles/Vol] 3.9 mmol/L Normal 3.5-5.1 [facility] Comment on above: Result Comment: [facility] potassium values may be up to 0.5 mmol/L lower than serum values. Performed By: #### L AB17 ####Drapery Counselor: VELMA VALADEZ ([phone])[facility] ([facility])[address] [place] [address] Protein [Mass/Vol] 5.2 g/dL Low 6.4-8.3 [facility] Comment on above: Performed By: #### L AB17 ####Drapery Counselor: VELMA VALADEZ ([phone])[facility] ([facility])[address] [place] [address] Sodium [Moles/Vol] 139 mmol/L Normal 136-145 [facility] Comment on above: Performed By: #### L AB17 ####Drapery Counselor: VELMA VALADEZ ([phone])[facility] [place] [address] Urea nitrogen [Mass/Vol] 26 mg/dL High 9-23 [facility] Comment on above: Performed By: #### L AB17 ####Drapery Counselor: VELMA VALADEZ ([phone])[facility] ([facility])[address] [place] [address] Comprehensive metabolic 1998 panelon 08-04-2024 Albumin [Mass/Vol] 2.3 g/dL Low 3.4 - 4.8 g/dL [facility] ALP [Catalytic activity/Vol] 68 U/L 40 - 150 U/L [facility] ALT [Catalytic activity/Vol] 26 U/L NINF - 30 U/L [facility] Anion gap [Moles/Vol] 6 mmol/L 3 - 13 mmol/L [facility] AST [Catalytic activity/Vol] 25 U/L NINF - 34 U/L [facility] Bilirubin [Mass/Vol] 0.5 mg/dL NINF - 1.2 mg/dL [facility] Calcium [Mass/Vol] 8.2 mg/dL Low 8.8 - 10. 0 mg/dL [facility] Chloride [Moles/Vol] 112 mmol/L High 98 - 10 7 mmol/L [facility] CO2 [Moles/Vol] 21 mmol/L Low 23 - 31 mmol/L [facility] Creatinine [Mass/Vol] 1.13 mg/dL High 0.57 - 1.11 mg/dL [facility] GFR/1.73 sq M.predicted (S/P/Bld) [Vol rate/Area] 48.1 mL/min Low - PINF [facility] Comment on above: Calculation based on the Chronic Kidney Disease Epidemiology Collaboration (CKD-EPI) equation refit without adjustment for race Glucose [Mass/Vol] 153 mg/dL High 82 - 115 mg/dL [facility] Interpretation and review of laboratory results Abnormal [facility] Potassium [Moles/Vol] 3.9 mmol/L 3.5 - 5.1 mmol/L [facility] Comment on above: Plasma potassium chris ues may be up to 0.5 mmol/L lower than serum values. Protein [Mass/Vol] 5.2 g/dL Low 6.4 - 8.3 g/dL [facility] Sodium [Moles/Vol] 139 mmol/L 136 - 145 mmol/L [facility] Urea nitrogen [Mass/Vol] 26 mg/dL High 9 - 23 mg/dL [facility] Nursing Noteon 08-04-2024 Nursing Note Bedside swallow completed. Pt passed and tolerated well tolerated well. Normal [facility] Progress Noteon 08-04-2024 Progress Note Normal [facility] 30on 08-03-2024 30 Normal [facility] 30 Normal [facility] 30 Normal [facility] [id number] 08-03-2024 [id number] Normal [facility] BASIC METABOLIC PANELon 07-18 Anion gap [Moles/Vol] 6 mmol/L Normal 3-13 [facility] Comment on above: Performed By: #### L AB15 ####Drapery Counselor: VELMA VALADEZ ([phone])[facility] ([facility])[address] [place] [address] Calcium [Mass/Vol] 8.5 mg/dL Low 8.8-10.0 [facility] Comment on above: Performed By: #### L AB15 ####Drapery Counselor: VELMA VALADEZ ([phone])[facility] ([facility])[address] [place] [address] [place] Chloride [Moles/Vol] 105 mmol/L Normal 98-107 [facility] Comment on above: Performed By: #### L AB15 ####Drapery Counselor: VELMA VALADEZ ([phone])[facility] ([facility])[address] [place] [address] [place] CO2 [Moles/Vol] 27 mmol/L Normal 23-31 [facility] Comment on above: Performed By: #### L AB15 ####Drapery Counselor: VELMA VALADEZ ([phone])[facility] ([address] Creatinine [Mass/Vol] 1.18 mg/dL High 0.57-1.11 [facility] Comment on above: Performed By: #### L AB15 ####Drapery Counselor: VELMA VALADEZ ([phone])[facility])[address] [place] [address] GLOMERULAR FILTRATION RATE ML/MIN/1.73 SQ M.PREDICTED 45.6 mL/min/1.73m*2 Low >60.0 [facility] Comment on above: Result Comment: Calc ulation based on the Chronic Kidney Disease Epidemiology Collaboration (CKD-EPI) equation refit without adjustment for race Performed By: #### L AB15 ####Drapery Counselor: VELMA VALADEZ ([phone])[address] Glucose [Mass/Vol] 100 mg/dL Normal 82-115 [facility] Comment on above: Performed By: #### L AB15 ####Drapery Counselor: VELMA VALADEZ ([phone])[address] Potassium [Moles/Vol] 4.7 mmol/L Normal 3.5-5.1 [facility] Comment on above: Result Comment: [facility] potassium values may be up to 0.5 mmol/L lower than serum values. Performed By: #### L AB15 ####Drapery Counselor: VELMA VALADEZ ([phone])[facility])[address] [place] [address] Sodium [Moles/Vol] 138 mmol/L Normal 136-145 [facility] Comment on above: Performed By: #### L AB15 ####Drapery Counselor: VELMA [phone])[address] Urea nitrogen [Mass/Vol] 33 mg/dL High 9-23 [facility] Comment on above: Performed By: #### L AB15 ####Drapery Counselor: VELMA [phone])[facility] [place] [address] Basic metabolic 1998 panelOr dered By: Juni Millard on 08-03-2024 Anion gap [Moles/Vol] 6 mmol/L 3 - 13 mmol/L [facility] Calcium [Mass/Vol] 8.5 mg/dL Low 8.8 - 10. 0 mg/dL [facility] Chloride [Moles/Vol] 105 mmol/L 98 - 10 7 mmol/L [facility] CO2 [Moles/Vol] 27 mmol/L 23 - 31 mmol/L [facility] Creatinine [Mass/Vol] 1.18 mg/dL High 0.57 - 1.11 mg/dL [facility] GFR/1.73 sq M.predicted (S/P/Bld) [Vol rate/Area] 45.6 mL/min Low - PINF [facility] Comment on above: Calculation based on the Chronic Kidney Disease Epidemiology Collaboration (CKD-EPI) equation refit without adjustment for race Glucose [Mass/Vol] 100 mg/dL 82 - 115 mg/dL [facility] Interpretation and review of laboratory results Abnormal [facility] Potassium [Moles/Vol] 4.7 mmol/L 3.5 - 5.1 mmol/L [facility] Comment on above: Plasma potassium chris ues may be up to 0.5 mmol/L lower than serum values. Sodium [Moles/Vol] 138 mmol/L 136 - 145 mmol/L [facility] Urea nitrogen [Mass/Vol] 33 mg/dL High 9 - 23 mg/dL [facility] CBC W Auto Differential pane l (Bld)Ordered By: Christin Mayes on 08-03-2024 Erythrocyte distribution width (RBC) [Ratio] 19.4 % High 11.5 - 15.0 % [facility] Hematocrit (Bld) [Volume fraction] 38.7 % 35.0 - 47.0 % [facility] Hemoglobin (Bld) [Mass/Vol] 12.1 g/dL 11.7 - 16.0 g/dL [facility] MCH (RBC) [Entitic mass] 26 pg 26.0 - 34.0 pg [facility] MCHC (RBC) [Mass/Vol] 31.3 % 30.5 - 36.0 % [facility] MCV (RBC) [Entitic vol] 83.2 fL 77.0 - 99.0 fL [facility] Nucleated RBC/100 WBC (Bld) [Ratio] 0 % [facility] Platelet mean volume (Bld) [Entitic vol] 9.8 fL 9.0 - 12.7 fL [facility] Comment on above: MPV is a calculated measurement using platelet volume ratio Platelets (Bld) [#/Vol] 303 10*3/uL 140 - 440 10*3/uL [facility] RBC (Bld) [#/Vol] 4.65 10*6/uL 3.80 - 5.2 0 10*6/uL [facility] WBC (Bld) [#/Vol] 9.1 10*3/uL 3.6 - 10.7 10*3/uL [facility] CBC WITH AUTO DIFFERENTIALon 08-03-2024 Erythrocyte distribution width (RBC) [Ratio] 19.4 % High 11.5-15.0 [facility] Comment on above: Performed By: #### [place] [id number], [id number] ####Drapery Counselor: VELMA VALADEZ ([phone])[facility] ROSANGELA RITTMAN ([facility])[address] [place] [address] Hematocrit (Bld) [Volume fraction] 38.7 % Normal 35.0-47.0 [facility] Comment on above: Performed By: #### West[place] [id number], [id number] ####Drapery Counselor: VELMA VALADEZ ([phone])[facility] ROSANGELA [place] [employer] ([facility])[address] [place] [address] Hemoglobin (Bld) [Mass/Vol] 12.1 g/dL Normal 11.7-16.0 [facility] Comment on above: Performed By: #### L [id number], [id number] ####Drapery Counselor: VELMA VALADEZ ([phone])[facility] ROSANGELA [place] [employer] ([facility])[address] [place] [address] MCH (RBC) [Entitic mass] 26.0 pg Normal 26.0-34.0 [facility] Comment on above: Performed By: #### L [id number], [id number] ####Drapery Counselor: VELMA VALADEZ ([phone])[facility]ITAL[facility] ADAMES RITTM[facility] ([facility])[address] MCHC 31.3 % Normal 30.5-36.0 [facility] Comment on above: Performed By: #### L [id number], [id number] ####Drapery Counselor: VELMA VALADEZ ([phone])[facility] ([facility])[address] [place] [address] MCV (RBC) [Entitic vol] 83.2 fL Normal 77.0-99.0 S [facility] Comment on above: Performed By: #### L [id number], [id number] ####Drapery Counselor: VELMA VALADEZ ([phone])[facility] ([facility])[address] [place] [address] NRBC 0.0 /100 WBCs Normal 0.0-2.0 [facility] Comment on above: Performed By: #### L [id number], [id number] ####Drapery Counselor: VELMA VALADEZ ([phone])[facility]ITALSim[facility] ADAMES RITTM[facility] ([facility])[address] [place] [address] Platelet mean volume (Bld) [Entitic vol] 9.8 fL Normal 9.0-12.7 [facility] Comment on above: Result Comment: MPV is a calculated measurement using platelet volume ratio Performed By: #### L [id number], [id number] ####Drapery Counselor: VELMA VALADEZ ([phone])[facility]OSPITALSim[facility] ADAMES R[facility]TM[facility] ([facility])[address] [place] [address] [place] Platelets (Bld) [#/Vol] 303 10*3/uL Normal 140-440 [facility] Comment on above: Performed By: #### L [id number], [id number] ####Drapery Counselor: VELMA VALADEZ ([phone])[facility]PITALSim[facility] ADAMES [facility] ([facility])[address] [place] [address] [place] RBC (Bld) [#/Vol] 4.65 10*6/uL Normal 3.80-5.20 [facility] Comment on above: Performed By: #### L [id number], [id number] ####Drapery Counselor: VELMA VALADEZ ([phone])[facility]OSPITALSimran VERDINTMAN ([facility])[address] WBC (Bld) [#/Vol] 9.1 10*3/uL Normal 3.6-10.7 [facility] Comment on above: Performed By: #### West[place] [id number], [id number] ####Drapery Counselor: VELMA VALADEZ ([phone])[facility]PITALSim[facility] VERDINTMAN ([facility])[address] [place] [address] COMPREHENSIVE METABOLIC PANE Gilberto 08-03-2024 Albumin [Mass/Vol] 2.8 g/dL Low 3.4-4.8 [facility] Comment on above: Performed By: #### Weston AB17, [id number], LAB99 ####Drapery Counselor: VELMA VALADEZ ([phone])[facility]ITALSim[facility] VERDINTMAN ([facility])[address] [place] [address] ALP [Catalytic activity/Vol] 82 U/L Normal 40-150 [facility] Comment on above: Performed By: #### L AB17, [id number], LAB99 ####Drapery Counselor: VELMA VALADEZ ([phone])[facility]ITAL[facility] ADAMES RITTMAN ([facility])[address] ALT [Catalytic activity/Vol] 26 U/L Normal <30 [facility] Comment on above: Performed By: #### L AB17, [id number], LAB99 ####Drapery Counselor: VELMA VALADEZ ([phone])[facility]ITAL[facility] ADAMES RITTMAN ([facility])[address] Anion gap [Moles/Vol] 9 mmol/L Normal 3-13 [facility] Comment on above: Performed By: #### L AB17, [id number], LAB99 ####Drapery Counselor: VELMA VALADEZ ([phone])[facility] HOSPITALA ROSANGELA RITTMAN ([facility])[address] [place] [address] [place] AST [Catalytic activity/Vol] 36 U/L High <34 [facility] Comment on above: Result Comment: TCSi gnificant interference from hemolysis. Result integrity compromised. Interpret with caution. Performed By: #### [place]on AB17, [id number], LAB99 ####Drapery Counselor: VELMA VALADEZ ([phone])[facility]ITALA ROSANGELA RITTMAN ([facility])[address] Bilirubin [Mass/Vol] 0.7 mg/dL Normal <1.2 [facility] Comment on above: Performed By: #### [place]on REIS17, [id number], LAB99 ####Drapery Counselor: VELMA VALADEZ ([phone])[facility] HOSPITALSimran SANCHEZROSANGELA RITTMAN ([facility])[address] [place] [address] [place] Calcium [Mass/Vol] 9.0 mg/dL Normal 8.8-10.0 [facility] Comment on above: Performed By: #### Weston HOLLY, [id number], LAB99 ####Drapery Counselor: VELMA VALADEZ ([phone])[facility]A ROSANGELA RITTMAN ([facility])[address] [place] [address] [place] Chloride [Moles/Vol] 109 mmol/L High 98-107 [facility] Comment on above: Performed By: #### [place]on REIS17, [id number], LAB99 ####Drapery Counselor: VELMA VALADEZ ([phone])[facility]A ROSANGELA RITTMAN ([facility])[address] [place] [address] [place] CO2 [Moles/Vol] 21 mmol/L Low 23-31 [facility] Comment on above: Performed By: #### L AB17, [id number], LAB99 ####Drapery Counselor: VELMA VALADEZ ([phone])[facility]A ROSANGELA RITTMAN ([facility])[address] [place] [address] [place] Creatinine [Mass/Vol] 1.30 mg/dL High 0.57-1.11 [facility] Comment on above: Performed By: #### Weston HOLLY, [id number], LAB99 ####Drapery Counselor: VELMA VALADEZ ([phone])[facility]ITALSim[facility] VERDINTMAN ([facility])[address] [place] [address] GLOMERULAR FILTRATION RATE ML/MIN/1.73 SQ M.PREDICTED 40.6 mL/min/1.73m*2 Low >60.0 [facility] Comment on above: Result Comment: Calc ulation based on the Chronic Kidney Disease Epidemiology Collaboration (CKD-EPI) equation refit without adjustment for race Performed By: #### Weston HOLLY, [id number], LAB99 ####Drapery Counselor: VELMA VALADEZ ([phone])[facility]ITALSim[facility] VERDINTMAN ([facility])[address] [place] [address] Glucose [Mass/Vol] 103 mg/dL Normal 82-115 [facility] Comment on above: Performed By: #### Weston HOLLY, [id number], LAB99 ####Drapery Counselor: VELMA VALADEZ ([phone])[facility]ITAL[facility] ADAMES RITTMAN ([facility])[address] [place] [address] Potassium [Moles/Vol] 5.9 mmol/L High 3.5-5.1 [facility] Comment on above: Result Comment: TCSi gnificant interference from hemolysis. Result integrity compromised. Interpret with caution. Performed By: #### Weston HOLLY, [id number], LAB99 ####Drapery Counselor: VELMA VALADEZ ([phone])[facility]ITALSim[facility] VERDINT[facility] ([facility])[address] [place] [address] Protein [Mass/Vol] 6.7 g/dL Normal 6.4-8.3 [facility] Comment on above: Result Comment: TCPo tential interference from hemolysis Performed By: #### [place]on REIS17, [id number], LAB99 ####Drapery Counselor: VELMA VALADEZ ([phone])[facility]ITALSim[facility] ADAMES RITTMAN ([facility])[address] [place] [address] Sodium [Moles/Vol] 139 mmol/L Normal 136-145 [facility] Comment on above: Performed By: #### L AB17, [id number], LAB99 ####Drapery Counselor: VELMA VALADEZ ([phone])[facility] RITTMAN (SWRL[facility])[address] Urea nitrogen [Mass/Vol] 34 mg/dL High 9-23 [facility] Comment on above: Performed By: #### L AB17, [id number], LAB99 ####Drapery Counselor: VELMA VALADEZ ([phone])[facility] RITTMAN (SW[facility])[address] ABDOMEN PELVIS WO IV CONT RASTon 08-03-2024 CT ABDOMEN PELVIS WO IV CONTRAST Normal [facility] CT Abdomen and Pelvis WO con traston 08-03-2024 1. Extensive colonic diverticulosis without evidence of diverticulitis 2. Consolidation in the medial left lower lobe, possibly pneumonia 3. No bowel dilatation Report Dictated on Electronically Signed By: Ming Fry MD Electronically Signed Date/Time: 08/03/2024 4:05 AM [facility] Patient Name: MEL CARVER RD : 1940 [id number] Exam Date/Time: 08/03/2024 03:05 Procedure: CT ABDOMEN [...] Lymph nodes: Unremarkable. No enlarged lymph nodes. [facility] Ming Fry MD - 08/03/2024 Patient Name: MEL POP : 1940 [facility] [id number] Exam Date/Time: 08/03/2024 03:05 Procedure: CT ABDOMEN [...] Electronically Signed Date/Time: 08/03/2024 4:05 AM EST [facility] [email or web address] Radiology Study observation (narrative) [facility] alth CT Abdomen and Pelvis WO con trastOrdered By: Ming Fry on 08-03-2024 [facility] [email or web address] Work Phone: Comprehensive metabolic 1998 panelon 08-03-2024 Albumin [Mass/Vol] 2.8 g/dL Low 3.4 - 4.8 g/dL [facility] [email or web address] ALP [Catalytic activity/Vol] 82 U/L 40 - 150 U/L [facility] [email or web address] ALT [Catalytic activity/Vol] 26 U/L NINF - 30 U/L [facility] [email or web address] Anion gap [Moles/Vol] 9 mmol/L 3 - 13 mmol/L [facility] [email or web address] AST [Catalytic activity/Vol] 36 U[facility]/L [facility] [email or web address] Comment on above: TC Significant interference from hemolysis. Result integrity compromised. Interpret with caution. Bilirubin [Mass/Vol] 0.7 mg/dL NINF - 1.2 mg/dL [facility] [email or web address] Calcium [Mass/Vol] 9 mg/dL 8.8 - 10. 0 mg/dL [facility] Chloride [Moles/Vol] 109 mmol/L High 98 - 10 7 mmol/L [facility] CO2 [Moles/Vol] 21 mmol/L Low 23 - 31 mmol/L [facility] Creatinine [Mass/Vol] 1.3 mg/dL High 0.57 - 1.11 mg/dL [facility] GFR/1.73 sq M.predicted (S/P/Bld) [Vol rate/Area] 40.6 mL/min Low - PINF [facility] Comment on above: Calculation based on the Chronic Kidney Disease Epidemiology Collaboration (CKD-EPI) equation refit without adjustment for race Glucose [Mass/Vol] 103 mg/dL 82 - 115 mg/dL [facility] Interpretation and review of laboratory results Abnormal [facility] Potassium [Moles/Vol] 5.9 mmol/L High 3.5 - 5.1 mmol/L [facility] Comment on above: TC Significant interference from hemolysis. Result integrity compromised. Interpret with caution. Protein [Mass/Vol] 6.7 g/dL 6.4 - 8.3 g/dL [facility] Comment on above: TC Potential interference from hemolysis Sodium [Moles/Vol] 139 mmol/L 136 - 145 mmol/L [facility] Urea nitrogen [Mass/Vol] 34 mg/dL High 9 - 23 mg/dL [facility] ED Nursing Noteon 08-03-2024 ED Nursing Note Pt placed in roundtrip Normal [facility] ED Nursing Note ED CT and ED xray notified that patient is ready Normal [facility] ED Provider Noteon ED Provider Note Normal [facility] GASTROINTESTINAL PCR PANELon 08-03-2024 GASTROINTESTINAL PCR PANEL Normal [facility] Comment on above: Performed By: #### L [id number] ####Drapery Counselor: VELMA VALADEZ ([phone])[facility] ([facility])[address] [place] [address] Gastrointestinal pathogens p masoud OXANA+probe (Stl)Ordered By: Maximus Dimas on 08-03-2024 Adenovirus F 40/41 Not detected Not Detected [facility] Astrovirus Not detected Not Detected [facility] Campylobacter Not detected Not Detected [facility] Cryptosporidium Not detected Not Detected [facility] Cyclospora cayetanensis Not detected Not Detected [facility] Entamoeba histolytica Not detected Not Detected [facility] Enterotoxigenic E coli (ETEC) Not detected Not Detected [facility] Giardia lamblia Not detected Not Detected [facility] Interpretation and review of laboratory results Abnormal [facility] Norovirus GI/GII Detected Abnormal Not Detected [facility] Plesiomonas shigelloides Not detected Not Detected [facility] Rotavirus A Not detected Not Detected [facility] Salmonella Not detected Not Detected [facility] Sapovirus Not detected Not Detected [facility] Shiga toxin-producing E coli (STEC) Not detected Not Detected [facility] Shigella/Enteroinvasive E coli (EIEC) Not detected Not Detected [facility] Vibrio cholerae Not detected Not Detected [facility] Vibrio species Not detected Not Detected [facility] Yersinia enterocolitica Not detected Not Detected [facility] A positive Norovirus result on the Film Array GI panel should be interpreted in the context of the patient's history and clinical picture. If results are not consistent, result should be confirmed with a Norovirus specific assay. Methodology: Multiplex PCR [facility] LACTIC ACID WITH REFLEXon Lactate [Moles/Vol] 1.9 mmol/L Normal 0.5-2.2 [facility] Comment on above: Performed By: #### L [id number] ####Drapery Counselor: VELMA VALADEZ ([phone])[facility] (SAC[facility] LIPASEon 08-03-2024 Lipase [Catalytic activity/Vol] 8 U/L Normal <55 [facility] Comment on above: Performed By: #### L AB17, [id number], LAB99 ####Drapery Counselor: VELMA VALADEZ ([phone])[facility] (SWRLAB)[address] [place] [address] Laboratory - Chemistry and C hemistry - challengeon 08-03-2024 Lactate [Moles/Vol] 1.9 mmol/L 0.5 - 2. 2 mmol/L [facility] Anion gap (Bld) [Moles/Vol] 8 mmol/L 3.00 - 13.00 [facility] Calcium.ionized (Bld) [Moles/Vol] 4.7 mg/dl 4.30 - 5.20 mg/dl [facility] Chloride [Moles/Vol] 107 mmol/L 98 - 11 4 mmol/L [facility] CO2 [Moles/Vol] 23 mmol/L 21 - 29 mmol/L [facility] Creatinine [Mass/Vol] 1.3 mg/dL 0.6 - 1.3 mg/dL [facility] GFR/1.73 sq M.predicted CKD-EPI (S/P/Bld) [Vol rate/Area] 40.6 [facility] Comment on above: KDIGO guidelines pro [...] 118 mg/dL High 70 - 100 mg/dL [facility] Potassium [Moles/Vol] 4.3 mmol/L 3.4 - 5.1 mmol/L [facility] Sodium [Moles/Vol] 138 mmol/L 133 - 145 mmol/L [facility] Urea (Bld) [Mass/Vol] 33 mg/dL High 4 - 22 mg/dL [facility] Lipase [Catalytic activity/Vol] 8 U/L NINF - 55 U/L [facility] Magnesium [Mass/Vol] 1.9 mg/dL 1.6 - 2 .6 mg/dL [facility] Laboratory - Microbiology an d Antimicrobial susceptibilityon 08-03-2024 FLUAV RNA OXANA+probe Ql (Resp) Not detected Not Detected [facility] FLUBV RNA OXANA+probe Ql (Resp) Not detected Not Detected [facility] RSV RNA OXANA+probe Ql (Resp) Not detected Not Detected [facility] SARS-CoV-2 (COVID-19) RNA OXANA+probe Ql (Resp) Not detected Not Detected [facility] SARS-CoV-2 (COVID-19) RNA OXANA+probe Ql (Unsp spec) Methodology: real-time, RT-PCR The SARS-CoV-2, Flu A/B, and RSV Combo assay is intended for in vitro diagnostic use under the FDA Emergency Use Authorization (EUA). This test has not been FDA cleared or approved. In compliance with this authorization, please visit www.fda.gov/media/51596 5/download or www.fda.gov/media/90673 6/download to access the applicable information sheets. [facility] MAGNESIUMon 08-03-2024 Magnesium [Mass/Vol] 1.9 mg/dL Normal 1.6-2.6 [facility] Comment on above: Result Comment: BUBBA R COMMENTS:Higher values can be expected in females during menses. Performed By: #### L AB17, [id number], LAB99 ####Drapery Counselor: VELMA VALADEZ ([phone])[facility] Lab42 [facility] (SWRLAB)[address] [place] [address] MANUAL DIFFERENTIALon 2024 BASOPHILS (10*3/UL) IN BLOOD BY MANUAL COUNT 0.0 10*3/uL Normal 0.0-0.2 [facility] Comment on above: Performed By: #### L [id number], [id number] ####Drapery Counselor: VELMA VALADEZ ([phone])[facility]ITAL[facility] ([facility])[address] [place] [address] [place] BASOPHILS TOTAL PER COUNTED LEUKOCYTES BY MANUAL COUNT 0 Normal [facility] Comment on above: Performed By: #### L [id number], [id number] ####Drapery Counselor: VELMA VALADEZ ([phone])[facility] ROS[place]ELA [facility] (SWRL[facility])[address] [place] [address] [place] BASOPHILS/100 LEUKOCYTES IN BLOOD BY MANUAL COUNT 0 % Normal 0-2 [facility] Comment on above: Performed By: #### L [id number], [id number] ####Drapery Counselor: VELMA VALADEZ ([phone])[facility] ROSANGELA [facility] ([facility]RL[facility])[address] [place], [place] [address] [place] CELLS COUNTED TOTAL (#) IN BLOOD 100 Normal [facility] Comment on above: Performed By: #### L [id number], [id number] ####Drapery Counselor: VELMA VALADEZ ([phone])[facility] [place] [facility] (SWRL[facility])[address] [place] [address] [place] DIFFERENTIAL METHOD Automated differenti al reported after manual slide review Normal [facility] Comment on above: Performed By: #### L [id number], [id number] ####Drapery Counselor: VELMA VALADEZ ([phone])[facility] ROS[place]ELA [facility] (SWRL[facility])[address] [place] [address] [place] EOSINOPHILS (10*3/UL) IN BLOOD BY MANUAL COUNT 0.1 10*3/uL Normal 0.0-0.5 [facility] Comment on above: Performed By: #### Weston [id number], [id number] ####Drapery Counselor: VELMA VALADEZ ([phone])[facility] ([facility])[address] [place] [address] [place] EOSINOPHILS TOTAL PER COUNTED LEUKOCYTES BY MANUAL COUNT 1 Normal 0-1 [facility] Comment on above: Performed By: #### Weston [id number], [id number] ####Drapery Counselor: VELMA VALADEZ ([phone])[facility] [place] [facility] (SWRL[facility])[address] [place] [address] [place] EOSINOPHILS/100 LEUKOCYTES IN BLOOD BY MANUAL COUNT 1 % Normal 0-6 [facility] Comment on above: Performed By: #### L [id number], [id number] ####Drapery Counselor: VELMA VALADEZ ([phone])[facility] [place] ([facility])[address] [place] [address] [place] LEUKOCYTE MORPHOLOGY FINDING IN BLOOD Normal Normal [facility] Comment on above: Performed By: #### L [id number], [id number] ####Drapery Counselor: VELMA VALADEZ ([phone])[facility] [place] [facility] ([facility])[address] [place] [address] [place] LEUKOCYTES (10*3/UL) NUCLEATED ERYTHROCYTE ADJUST 9.1 10*3/uL Normal 3.6-10.7 [facility] Comment on above: Performed By: #### L [id number], [id number] ####Drapery Counselor: VELMA VALADEZ ([phone])[facility] [place] ([facility])[address] [place] [address] [place] LYMPHOCYTES (10*3/UL) IN BLOOD BY MANUAL COUNT 0.5 10*3/uL Low 1.0-4.3 [facility] Comment on above: Performed By: #### L [id number], [id number] ####Drapery Counselor: VELMA VALADEZ ([phone])[facility] [place] (SWRL[facility])[address] [place] [address] [place] LYMPHOCYTES TOTAL PER COUNTED LEUKOCYTES BY MANUAL COUNT 5 Normal [facility] Comment on above: Performed By: #### Weston [id number], [id number] ####Drapery Counselor: VELMA VALADEZ ([phone])[facility] [place] (SW[facility])[address] [place] [address] [place] LYMPHOCYTES/100 LEUKOCYTES IN BLOOD BY MANUAL COUNT 5 % Low 15-45 [facility] Comment on above: Performed By: #### L [id number], [id number] ####Drapery Counselor: VELMA VALADEZ ([phone])[facility] HOSPITALSimran SANCHEZROSANGELA [facility] ([facility])[address] [place] [address] [place] MONOCYTES (10*3/UL) IN BLOOD BY MANUAL COUNT 0.5 10*3/uL Normal 0.0-0.9 [facility] Comment on above: Performed By: #### L [id number], [id number] ####Drapery Counselor: VELMA VALADEZ ([phone])[facility] [place]A [place] (SWRL[facility])[address] [place] [address] [place] MONOCYTES TOTAL PER COUNTED LEUKOCYTES BY MANUAL COUNT 6 Normal [facility] Comment on above: Performed By: #### L [id number], [id number] ####Drapery Counselor: VELMA VALADEZ ([phone])[facility] (SW[facility])[address] [place] [address] [place] MONOCYTES/100 LEUKOCYTES IN BLOOD BY MANUAL COUNT 6 % Normal 5-13 [facility] Comment on above: Performed By: #### L [id number], [id number] ####Drapery Counselor: VELMA VALADEZ ([phone])TIFF[facility] [place] [facility] ([facility])[address] [place] [address] [place] NEUTROPHILS (SEGS+BANDS) (10*3/UL) BY MANUAL COUNT 7.9 10*3/uL High 1.8-7.0 [facility] Comment on above: Performed By: #### L [id number], [id number] ####Drapery Counselor: VELMA VALADEZ ([phone])[facility] HOSPITALSimran ADAMES [facility] ([facility])[address] [place] [address] [place] NEUTROPHILS TOTAL PER COUNTED LEUKOCYTES BY MANUAL COUNT 87 Normal [facility] Comment on above: Performed By: #### L [id number], [id number] ####Drapery Counselor: VELMA VALADEZ ([phone])[facility]ITALSimran SANCHEZROSANGELA [facility] ([facility])[address] [place] [address] [place] PLATELET MORPHOLOGY IN BLOOD Normal Normal [facility] Comment on above: Performed By: #### L [id number], [id number] ####Drapery Counselor: VELMA VALADEZ ([phone])[facility] [place] ([facility])[address] [place] [address] [place] RBC MORPHOLOGY IN BLOOD Normal Normal [facility] Comment on above: Performed By: #### L [id number], [id number] ####Drapery Counselor: VELMA VALADEZ ([phone])[facility]ITALSimran SANCHEZROSANGELA [facility] ([facility])[address] [place] [address] [place] SEGEMENTED NEUTROPHILS/100 LEUKOCYTES BY MANUAL COUNT 87 % High 38-82 [facility] Comment on above: Performed By: #### L [id number], [id number] ####Drapery Counselor: VELMA VALADEZ ([phone])[facility] ROSANGELA [place] ([facility])[address] [place] [address] [place] UNCLASSIFIED CELLS (10*3/UL) IN BLOOD BY MANUAL COUNT 0.1 10*3/uL Normal [facility] Comment on above: Performed By: #### L [id number], [id number] ####Drapery Counselor: VELMA VALADEZ ([phone])[facility] [place] ([facility])[address] [place] [address] [place] UNCLASSIFIED CELLS/100 LEUKOCYTES IN BLOOD 1.00 % Normal [facility] Comment on above: Performed By: #### L [id number], [id number] ####Drapery Counselor: VELMA VALADEZ ([phone])[facility] ROSANGELA [place] ([facility])[address] [place] [address] [place] Magnesium [Mass/Vol]on 08-03 Higher values can be expected in females during menses. [employer] Manual differential performe d Ql (Bld)on 08-03-2024 Basophils (Bld) [#/Vol] 0 10*3/uL 0.0 - 0.2 10*3/uL [employer] Basophils Manual 0 [facility] alth Basophils/100 WBC (Bld) 0 % 0 - 2 % [facility] Cells Counted Total (Bld) [#] 100 {cells} [facility] [employer] Differential Method Automated differenti al reported after manual slide review [facility] [employer] Eosinophils (Bld) [#/Vol] 0.1 10*3/uL 0.0 - 0.5 10*3/uL [employer] Eosinophils Manual 1 0 - 1 [facility] [employer] Eosinophils/100 WBC (Bld) 1 % 0 - 6 % [facility] [employer] Leukocyte morphology finding Nom (Bld) Normal [facility] [employer] Lymphocytes (Bld) [#/Vol] 0.5 10*3/uL Low 1.0 - 4.3 10*3/uL [facility] [employer] Lymphocytes Manual 5 [facility] [employer] Lymphocytes/100 WBC (Bld) 5 % Low 15 - 45 % [facility] [employer] Monocytes (Bld) [#/Vol] 0.5 10*3/uL 0.0 - 0.9 10*3/uL [facility] Monocytes Manual 6 [facility] alth Monocytes/100 WBC (Bld) 6 % 5 - 13 % [facility] Neutrophils (Bld) [#/Vol] 7.9 10*3/uL High 1.8 - 7.0 10*3/uL [facility] Neutrophils Manual 87 [facility] Platelet morphology finding Nom (Bld) Normal [facility] RBC morphology finding Nom (Bld) Normal [facility] Segmented neutrophils/100 WBC (Bld) 87 % High 38 - 82 % [facility] Unclassified Cells % 1 % [facility] Unclassified Cells, Abs. 0.1 10*3/uL [facility] WBC corrected for nucl RBC (Bld) [#/Vol] 9.1 10*3/uL 3.6 - 10.7 10*3/uL [facility] No Panel Informationon 08-03 Interpretation and review of laboratory results Normal [facility] Interpretation and review of laboratory results Abnormal [facility] Performed by: [facility], [address] [place] [address] CLIA ID: [id number] [facility] Interpretation and review of laboratory results Normal [facility] No Panel InformationOrdered By: Christin Mayes on 08-03-2024 Interpretation and review of laboratory results Abnormal [facility] SARS-COV-2, FLU A/B, AND RSV COMBOon 08-03-2024 SARS-CoV-2 (COVID-19) RNA OXANA+probe Ql (Unsp spec) Normal [facility] Comment on above: Performed By: #### L [id number] ####Drapery Counselor: VELMA VALADEZ ([phone])[facility]ITAL[facility] BAUTISTA (SWRLAB)[address] [place] [address] SARS-CoV-2, Flu A/B, and RSV Comboon 08-03-2024 Interpretation and review of laboratory results Normal [facility] XR Chest Single viewon 08-03 No acute abnormality Report Dictated on Electronically Signed By: Ming Fry MD Electronically Signed Date/Time: 08/03/2024 3:33 AM [facility] Patient Name: MEL [...] within the right humerus. No acute fracture. [facility] Ming Fry MD - 08/03/2024 Patient [...] Electronically Signed Date/Time: 08/03/2024 3:33 AM EST [facility] Radiology Study observation (narrative) [facility] alth XR Chest Single viewOrdered By: Ming Fry on 08-03-2024 [facility] Work Phone: ANES POSTPROC EVALon 025 ANES POSTPROC EVAL HNO ID: [id number] Author: ROBINSON BRUNNER MD Service: ? Author Type: Anesthesiologist Type: Anesthesia Postprocedure Evaluation Filed: 07/31/2024 12:48 Note Text: POST ANESTHESIA EVALUATION NOTE : 1940 Procedure Summary Date: 07/27/24 Room / Location: [address] Anesthesia Start: 1114 Anesthesia Stop: 1322 [...] with this procedure. Documented by Mikhail Nichols APRN.RN OPERATING ROOM 07/27/2024 1:22 PM EST SIGNATURE: Robinson Pizano MD PATIENT NAME: Mel Castillo DATE: July 31, 2024 TIME: 12:46 PM CSN: [id number] [facility] ANES PRE-OPon 07-27-2024 ANES PRE-OP HNO ID: [id number] Author: ROBINSON BRUNNER MD Service: ? Author Type: Anesthesiologist Type: Anesthesia Preprocedure Evaluation Filed: 07/27/2024 11:10 Note Text: ANESTHESIOLOGY DAY OF SURGERY NOTE : 1940 Procedure Information Date/Time: 07/27/24 1110 Procedures: VITRECTOMY 25G [facility] PARS PLANA APPROACH W/ REMOVAL OF PRERETINAL CELLULAR MEMBRANE (Right: Eye) RELEASE OF VITREOUS, CHOROIDAL FLUID, PARS PLANA APPROACH (Right: Eye) Location: [place] [address] / [facility] Surgeons: Savana Lopez MD Estimated [...] tiotropium 2.5 (more content not included)... Normal [facility] OPERATIVE NOon 07-27-2024 OPERATIVE NO HNO ID: [id number] Author: SAVANA LOPEZ MD Service: Ophthalmology Author Type: Physician Type: Operative Report Filed: 07/27/2024 13:20 Note Text: [place] [address] [place] [facility] OPERATIVE REPORT LOG ID: [id number] Surgery/Procedure Date: 07/27/2024 Incision/Procedure Start Time: 11:39 AM Incision Close/Procedure End Time: 1:07 PM NAME: Mel Serna [facility] #: [id number] SURGEON(S) AND ROCKET SCIENTIST(S): Surgeons and Role: Panel 1: * Savana [...] was repaired by the use of max first aid director forceps and vitreous cutter. This was a [...] times thro (more content not included)... Normal [facility] BSCAN OD (RIGHT EYE)on 07-24 [facility] Right eye Photo documentatio non 07-24-2024 [facility] BSCAN OD (RIGHT EYE)on 07-23 Radiology Study observation (narrative) [facility] Right eye Photo documentatio non 07-23-2024 Radiology Study observation (narrative) [facility] CASE MANAGEMon 07-18-2024 CASE MANAGEM HNO ID: [id number] Author: DOMINIQUE RAMSAY LSW Service: ? Author Type: Senior Technical Recruiter Type: Care Mgt Progress Note Filed: 07/18/2024 11:21 Note Text: CARE MANAGEMENT DISCHARGE NOTE SERVICE DATE: July 18, 2024 SERVICE TIME: 11:19 AM Admission Date: 07/07/2024 LOS: 11 days Discharge Arrangement Discharge Arrangement: Assisted Facility Services Arranged Medical Services: Other: See Comment (N/A) Caregiver Assessment Caregiver is ready, willing and able to meet the patient's needs as recommended by the inter-professional team: Yes Name of Caregiver: Rosangela Tomlin Transportation Arrangements Transportation Arrangements: Ambulance Transportation Agency and Phone #:: [facility] [phone] Date of Trip: 07/18/24 Time of Trip: 1100 Type of Service: BLS Non-emergency Handoff Communication: Handoff to: Primary Care Physician Primary Care Physician Name/Phone: Jared Evans Additional Information: Discharge Information Row Name Admission (Current) from 07/07/2024 in HOSP MAIN H060 Assisted Facility Agency [address] [address] Patient d/c ready to [facility] via [facility] with picked edge sewing machine operator scheduled for 11am today by Stretcher. Patient aware of plan. Bedside RN aware of plan and provided number to call report for nurse report; call [phone] :) Cabin Equipment Supervisor can transfer you to the 2nd floor. . 7000 and DC instructions sent to [facility] via [employer] and are in DC packet. DC packet in chart to go with patient. SIGNATURE: SHAQUILLE Garay PATIENT NAME: Mel Castillo DATE: July 18, 2024 TIME: 11:19 AM Normal [facility] CBC panel Auto (Bld)on 07-18 Erythrocyte distribution width (RBC) [Ratio] 17.5 % High 11.5-15.0 [facility] Comment on above: Order Comment: Speci men Type: BLOOD SPECIMEN Ordering Facility: [facility] Address: [address] [place] [address] Performed By: #### 5 8410-2 #### [facility] CLIA [id number] [address] [place] [address] [place] Hematocrit (Bld) [Volume fraction] 33.8 % Low 36.0-46.0 [facility] Comment on above: Order Comment: Speci men Type: BLOOD SPECIMEN Ordering Facility: [facility] Address: [address] [place] [address] Performed By: #### 5 8410-2 #### [facility] CLIA [id number] [address] [place] [address] [place] Hemoglobin (Bld) [Mass/Vol] 10.5 g/dL Low 11.5-15.5 [facility] Comment on above: Order Comment: Speci men Type: BLOOD SPECIMEN Ordering Facility: [facility] Address: [address] [place] [address] Performed By: #### 5 8410-2 #### [facility] CLIA [id number] [address] [place] [address] [place] MCH (RBC) [Entitic mass] 26.0 pg Normal 26.0-34.0 [facility] Comment on above: Order Comment: Speci men Type: BLOOD SPECIMEN Ordering Facility: [facility] Address: [address] [place] [address] Performed By: #### 5 8410-2 #### [facility] CLIA [id number] [address] [place] [address] [place] MCHC (RBC) [Mass/Vol] 31.1 g/dL Normal 30.5-36.0 [facility] Comment on above: Order Comment: Speci men Type: BLOOD SPECIMEN Ordering Facility: [facility] Address: [address] [place] [address] Performed By: #### 5 8410-2 #### [facility] CLIA [id number] [address] [place] [address] [place] MCV (RBC) [Entitic vol] 83.7 fL Normal 80.0-100.0 [facility] Comment on above: Order Comment: Speci men Type: BLOOD SPECIMEN Ordering Facility: [facility] Address: [address] [place] [address] Performed By: #### 5 8410-2 #### [facility] CLIA [id number] [address] [place] [address] [place] Nucleated RBC (Bld) [#/Vol] 10*3/uL Normal <0.01 [facility] Comment on above: Order Comment: Speci men Type: BLOOD SPECIMEN Ordering Facility: [facility] Address: [address] [place] [address] Performed By: #### 5 8410-2 #### [facility] CLIA [id number] [address] [place] [address] [place] Platelet mean volume (Bld) [Entitic vol] 9.3 fL Normal 9.0-12.7 [facility] Comment on above: Order Comment: Speci men Type: BLOOD SPECIMEN Ordering Facility: [facility] Address: [address] [place] [address] Performed By: #### 5 8410-2 #### [facility] CLIA [id number] [address] [place] [address] [place] Platelets (Bld) [#/Vol] 386 10*3/uL Normal 150-400 [facility] Comment on above: Order Comment: Speci men Type: BLOOD SPECIMEN Ordering Facility: [facility] Address: [address] [place] [address] Performed By: #### 5 8410-2 #### [facility] CLIA [id number] [address] [place] [address] [place] RBC (Bld) [#/Vol] 4.04 10*6/uL Normal 3.90-5.20 [facility] Comment on above: Order Comment: Speci men Type: BLOOD SPECIMEN Ordering Facility: [facility] Address: [address] [place] [address] Performed By: #### 5 8410-2 #### [facility] CLIA [id number] [address] [place] [address] [place] WBC (Bld) [#/Vol] 10.81 10*3/uL Normal 3.70-11.00 [facility] Comment on above: Order Comment: Speci men Type: BLOOD SPECIMEN Ordering Facility: [facility] Address: [address] [place] [address] Performed By: #### 5 8410-2 #### [facility] CLIA [id number] [address] [place] [address] [place] CNDSon 07-18-2024 CNDS HNO ID: [id number] Author: BRIANA PRITCHARD MD Service: General Internal [...] May 2024 who presents to OSH from [facility] for further evaluation of R [...] hemorraghic cho (more content not included)... Normal [facility] Renal function 2000 panelon 07-18-2024 Albumin [Mass/Vol] 3.2 g/dL Low 3.9-4.9 [facility] Comment on above: Order Comment: Samiri isabella Type: BLOOD SPECIMEN Ordering Facility: [facility] Address: [address] [place] [address] Performed By: #### 2 4362-6 #### [facility] CLIA [id number] [address] [place] [address] [place] Anion gap [Moles/Vol] 11 mmol/L Normal 8-15 [facility] Comment on above: Order Comment: Speci men Type: BLOOD SPECIMEN Ordering Facility: [facility] Address: [address] [place] [address] Performed By: #### 2 4362-6 #### [facility] CLIA [id number] [address] [place] [address] [place] Calcium [Mass/Vol] 9.3 mg/dL Normal 8.5-10.2 [facility] Comment on above: Order Comment: Speci men Type: BLOOD SPECIMEN Ordering Facility: [facility] Address: [address] [place] [address] Performed By: #### 2 4362-6 #### [facility] CLIA [id number] [address] [place] [address] [place] Chloride [Moles/Vol] 102 mmol/L Normal 98-107 [facility] Comment on above: Order Comment: Speci men Type: BLOOD SPECIMEN Ordering Facility: [facility] Address: [address] [place] [address] Performed By: #### 2 4362-6 #### [facility] CLIA [id number] [address] [place] [address] [place] CO2 [Moles/Vol] 25 mmol/L Normal 22-30 [facility] Comment on above: Order Comment: Speci men Type: BLOOD SPECIMEN Ordering Facility: [facility] Address: [address] [place] [address] Performed By: #### 2 4362-6 #### [facility] CLIA [id number] [address] [place] [address] [place] Creatinine [Mass/Vol] 0.90 mg/dL Normal 0.58-0.96 [facility] Comment on above: Order Comment: Speci men Type: BLOOD SPECIMEN Ordering Facility: [facility] Address: [address] [place] [address] Performed By: #### 2 4362-6 #### [facility] CLIA [id number] [address] [place] [address] [place] Creatinine and Glomerular filtration rate.predicted panel (S/P/Bld) 63 mL/min/1.73m??? Normal >=60 [facility] Comment on above: Order Comment: Speci men Type: BLOOD SPECIMEN Ordering Facility: [facility] Address: [address] [place] [address] Result Comment: Isa mated Glomerular Filtration Rate [...] GFR. Performed By: #### 2 4362-6 #### [facility] CLIA [id number] [address] [place] [address] [place] Glucose [Mass/Vol] 105 mg/dL High 74-99 [facility] Comment on above: Order Comment: Speci men Type: BLOOD SPECIMEN Ordering Facility: [facility] Address: [address] [place] [address] Result Comment: The [place] [employer] (ADA) [...] 1). Performed By: #### 2 4362-6 #### [facility] CLIA [id number] [address] [place] [address] [place] Phosphate [Mass/Vol] 3.0 mg/dL Normal 2.7-4.8 [facility] Comment on above: Order Comment: Rhina mason Type: BLOOD SPECIMEN Ordering Facility: [facility] Address: [address] [place] [address] Performed By: #### 2 4362-6 #### [facility] CLIA [id number] [address] [place] [address] [place] Potassium [Moles/Vol] 4.5 mmol/L Normal 3.7-5.1 [facility] Comment on above: Order Comment: Samiri men Type: BLOOD SPECIMEN Ordering Facility: [facility] Address: [address] [place] [address] Performed By: #### 2 4362-6 #### [facility] CLIA [id number] [address] [place] [address] [place] Sodium [Moles/Vol] 138 mmol/L Normal 136-144 [facility] Comment on above: Order Comment: Speci men Type: BLOOD SPECIMEN Ordering Facility: [facility] Address: [address] [place] [address] Performed By: #### 2 4362-6 #### [facility] CLIA [id number] [address] [place] [address] [place] Urea nitrogen [Mass/Vol] 17 mg/dL Normal 7-21 [facility] Comment on above: Order Comment: Speci men Type: BLOOD SPECIMEN Ordering Facility: [facility] Address: [address] [place] [address] Performed By: #### 2 4362-6 #### [facility] CLIA [id number] [address] [place] [address] OF [place] CASE MANAGEMon 07-17-2024 CASE MANAGEM HNO ID: [id number] Author: ?, ?, ? Service: ? Author Type: ? Type: Care Mgt Progress Note Filed: 07/17/2024 14:07 Note Text: CARE MANAGEMENT PROGRESS NOTE SERVICE DATE: 07/17/2024 SERVICE TIME: 2:07 PM LOS: 10 days Discharge packet completed and dropped off by administrative assistant receptionist Tamiko Holley. Packet is missing AVS/DC forms, please reach out to case briefer with any discharge related questions. SIGNATURE: Tamiko Holley PATIENT NAME: Mel Castillo DATE: July 17, 2024 TIME: 2:07 PM Normal [facility] CASE MANAGEM HNO ID: [id number] Author: DOMINIQUE RAMSAY LSW Service: ? Author Type: Senior Technical Recruiter Type: Care Mgt Progress Note Filed: 07/17/2024 13:44 Note Text: CARE MANAGEMENT HOLIDAY PLANNING NOTE DISCHARGE OR POSSIBLE DISCHARGE Date/Time: 07/18 at 11am Disposition: Assisted Facility - Precert Obtained: Yes Facility Name: [facility] Facility Phone #: Transport: Mode of Transportation: Ambulance Transportation Agency and Phone #: [facility] [phone] . Date of Trip: 07/18/2024 at 11am Other Concerns: 11 am DC via [facility] trip# #[id number] to take Pt to [facility]. Pre-cert is approved, a bed is available, and Pt is medically ready. 7000 has been tasked. DC packet has been tasked. DNR form is on green chart. Weekend Reclaimer Pager #: Please see Treatment Team for Care Management Weekend/Holiday coverage. SIGNATURE: SHAQUILLE Garay PATIENT NAME: Mel Castillo DATE: July 17, 2024 TIME: 1:42 PM PAGER/CONTACT #: [facility] CASE MANAGEM HNO ID: [id number] Author: BASILIA CAPPS, ? Service: ? Author Type: ? Type: Care Mgt Progress Note Filed: 07/17/2024 13:14 Note Text: [facility] PRECERT NOTE [employer] MEDICARE PPO approved Assisted Facility for [facility] . Precert approved through 07/19/2024. For any additional questions regarding approvals, transport or care management needs, please contact the CM assigned to this patient in the Treatment Team. SIGNATURE: Basilia Capps DATE: July 17, 2024 TIME: 1:14 PM [facility] CASE MANAGEM HNO ID: [id number] Author: DOMINIQUE RAMSAY LSW Service: General Internal Medicine Author Type: Senior Technical Recruiter Type: Care Mgt Progress Note Filed: 07/17/2024 11:29 Note Text: Attestation signed by Thomas Car DO at 07/17/2024 11:37 AM Thomas Car D.O. PGY-2 Internal Medicine Resident [facility] Click here to page July 17, [...] * Attending Physician: Briana Pritchard MD Normal [facility] CBC panel Auto (Bld)on 07-17 Erythrocyte distribution width (RBC) [Ratio] 17.2 % High 11.5-15.0 [facility] Comment on above: Order Comment: Rhina mason Type: BLOOD SPECIMEN Ordering Facility: [facility] Address: [address] [place] [address] Performed By: #### 2 276-4 #### [facility] CLIA [id number] [address] [place] [address] [place] Hematocrit (Bld) [Volume fraction] 32.3 % Low 36.0-46.0 [facility] Comment on above: Order Comment: Rhina mason Type: BLOOD SPECIMEN Ordering Facility: [facility] Address: [address] [place] [address] Performed By: #### 2 276-4 #### [facility] CLIA [id number] [address] [place] [address] [place] Hemoglobin (Bld) [Mass/Vol] 10.2 g/dL Low 11.5-15.5 [facility] Comment on above: Order Comment: Speci men Type: BLOOD SPECIMEN Ordering Facility: [facility] Address: [address] [place] [address] Performed By: #### 2 276-4 #### [facility] CLIA [id number] [address] [place] [address] STATES [facility] MCH (RBC) [Entitic mass] 26.5 pg Normal 26.0-34.0 [facility] Comment on above: Order Comment: Speci men Type: BLOOD SPECIMEN Ordering Facility: [facility] Address: [address] [place] [address] Performed By: #### 2 276-4 #### [facility] CLIA [id number] [address] [place] [address] [place] MCHC (RBC) [Mass/Vol] 31.6 g/dL Normal 30.5-36.0 [facility] Comment on above: Order Comment: Speci men Type: BLOOD SPECIMEN Ordering Facility: [facility] Address: [address] [place] [address] Performed By: #### 2 276-4 #### [facility] CLIA [id number] [address] [place] [address] [place] MCV (RBC) [Entitic vol] 83.9 fL Normal 80.0-100.0 [facility] Comment on above: Order Comment: Speci men Type: BLOOD SPECIMEN Ordering Facility: [facility] Address: [address] [place] [address] Performed By: #### 2 276-4 #### [facility] CLIA [id number] [address] [place] [address] [place] Nucleated RBC (Bld) [#/Vol] 10*3/uL Normal <0.01 [facility] Comment on above: Order Comment: Speci men Type: BLOOD SPECIMEN Ordering Facility: [facility] Address: [address] [place] [address] Performed By: #### 2 276-4 #### [facility] CLIA [id number] [address] [place] [address] [place] Platelet mean volume (Bld) [Entitic vol] 9.7 fL Normal 9.0-12.7 [facility] Comment on above: Order Comment: Speci men Type: BLOOD SPECIMEN Ordering Facility: [facility] Address: [address] [place] [address] Performed By: #### 2 276-4 #### [facility] CLIA [id number] [address] [place] [address] [place] Platelets (Bld) [#/Vol] 362 10*3/uL Normal 150-400 [facility] Comment on above: Order Comment: Speci men Type: BLOOD SPECIMEN Ordering Facility: [facility] Address: [address] [place] [address] Performed By: #### 2 276-4 #### [facility] CLIA [id number] [address] [place] [address] [place] RBC (Bld) [#/Vol] 3.85 10*6/uL Low 3.90-5.20 [facility] Comment on above: Order Comment: Speci men Type: BLOOD SPECIMEN Ordering Facility: [facility] Address: [address] [place] [address] Performed By: #### 2 276-4 #### [facility] CLIA [id number] [address] [place] [address] [place] WBC (Bld) [#/Vol] 9.41 10*3/uL Normal 3.70-11.00 [facility] Comment on above: Order Comment: Speci men Type: BLOOD SPECIMEN Ordering Facility: [facility] Address: [address] [place] [address] Performed By: #### 2 276-4 #### [facility] CLIA [id number] [address] [place] [address] [place] Renal function 2000 panelon 07-17-2024 Albumin [Mass/Vol] 3.3 g/dL Low 3.9-4.9 [facility] Comment on above: Order Comment: Speci men Type: BLOOD SPECIMENOrdering Facility: [facility] Address: [address] [place], [place] [address] Performed By: #### 2 4362-6 ####[facility] [id number] [address] [address] [place] Anion gap [Moles/Vol] 10 mmol/L Normal 8-15 [facility] Comment on above: Order Comment: Speci men Type: BLOOD SPECIMENOrdering Facility: [facility] Address: [address] [place], [place] [address] Performed By: #### 2 4362-6 ####[facility] [id number] [place] [address] [place] Calcium [Mass/Vol] 9.0 mg/dL Normal 8.5-10.2 [facility] Comment on above: Order Comment: Speci men Type: BLOOD SPECIMENOrdering Facility: [facility] Address: [address] [place], [place] [address] Performed By: #### 2 4362-6 ####[facility] [id number] [place] [address] [place] Chloride [Moles/Vol] 101 mmol/L Normal 98-107 [facility] Comment on above: Order Comment: Speci men Type: BLOOD SPECIMENOrdering Facility: [facility] Address: [address] [place], [place] [address] Performed By: #### 2 4362-6 ####[facility] [id number] [place] [id number] [place] CO2 [Moles/Vol] 25 mmol/L Normal 22-30 [facility] Comment on above: Order Comment: Speci men Type: BLOOD SPECIMENOrdering Facility: [facility] Address: [address] [place], [place] [address] Performed By: #### 2 4362-6 ####[facility] [id number] [place] [address] [place] Creatinine [Mass/Vol] 0.94 mg/dL Normal 0.58-0.96 [facility] Comment on above: Order Comment: Rhina mason Type: BLOOD SPECIMENOrdering Facility: [facility] Address: [address] [place] [address] Performed By: #### 2 4362-6 ####[facility] [id number] [place] [address] [place] Creatinine and Glomerular filtration rate.predicted panel (S/P/Bld) 60 mL/min/1.73m??? Normal >=60 [facility] Comment on above: Order Comment: Rhina mason Type: BLOOD SPECIMENOrdering Facility: [facility] Address: [address] [place] [address] Result Comment: Isa mated Glomerular Filtration Rate [...] actual GFR. Performed By: #### 2 4362-6 ####[facility] [id number] [place] [address] [place] Glucose [Mass/Vol] 112 mg/dL High 74-99 [facility] Comment on above: Order Comment: Rhina mason Type: BLOOD SPECIMENOrdering Facility: [facility] Address: [address] [place] [address] Result Comment: The [place] Diabetes [employer] (ADA) [...] 2016.39(Suppl 1). Performed By: #### 2 4362-6 ####[facility] [id number] [place] [address] [place] Phosphate [Mass/Vol] 2.2 mg/dL Low 2.7-4.8 [facility] Comment on above: Order Comment: Speci men Type: BLOOD SPECIMENOrdering Facility: [facility] Address: [address] [place] [address] Performed By: #### 2 4362-6 ####[facility] [id number] [place] [address] [place] Potassium [Moles/Vol] 4.6 mmol/L Normal 3.7-5.1 [facility] Comment on above: Order Comment: Speci men Type: BLOOD SPECIMENOrdering Facility: [facility] Address: [address] [place] [address] Performed By: #### 2 4362-6 ####[facility] [id number] [place] [address] [place] Sodium [Moles/Vol] 136 mmol/L Normal 136-144 [facility] Comment on above: Order Comment: Speci men Type: BLOOD SPECIMENOrdering Facility: [facility] Address: [address] [place] [address] Performed By: #### 2 4362-6 ####[facility] [id number] [place] [id number] [place] Urea nitrogen [Mass/Vol] 20 mg/dL Normal 7-21 [facility] Comment on above: Order Comment: Speci men Type: BLOOD SPECIMENOrdering Facility: [facility] Address: [address] [place] [address] Performed By: #### 2 4362-6 ####[facility]IA [id number] [facility] [place] [address] [place] THERAPY NTon 07-17-2024 THERAPY NT HNO ID: [id number] Author: SANTIAGO GUZMAN, OT/L Service: Occupational Therapy Author Type: Occupational Therapist Type: Therapy (PT/OT/Speech/Resp) Filed: 07/17/2024 15:14 Note Text: Occupational Therapy Treatment Summary SERVICE DATE: 07/17/2024 SERVICE TIME: 1425 to 1504 ROOM: [place] [address] OT 6 Clicks Score: 15 DISCHARGE RECOMMENDATIONS [...] Weakness (generalized) TREATMENT INTERVENTIONS Self Mcc Management (86171) Timed Code Treatment (minutes): 39 Skilled Treatment [...] Sit to Stand, Standing Balance to Improve [place] with ADLs/Self-Care, Sitting Balance to Improve [place] with ADLs/Self-Care, Life Roles/Routines/Habits THERAPEUTIC SKILLS USED [...] to Sit Contact Guard Assistance Bed to [facility] (more content not included)... Normal [facility] THERAPY NT HNO ID: [id number] Author: GABRIELLA DALEY, PT Service: Physical Therapy Author Type: Physical Therapist Type: Therapy (PT/OT/Speech/Resp) Filed: 07/17/2024 09:31 Note Text: Physical Therapy Evaluation Summary SERVICE DATE: 07/17/2024 SERVICE TIME: 832 to 911 ROOM: [place] [address] PT 6 Clicks Score: 18 DISCHARGE RECOMMENDATIONS [...] DIAGNOSIS Reduced mobility-other TREATMENT INTERVENTIONS $ Evaluation-Moderate (16604) Billed Units: 1 unit Therapeutic Activity (08943) Treatment Minutes: 10 $ Therapeutic Activity (81818) Billed Units: 1 unit Gait Training (05955) Treatment Minutes: 14 $ Gait Training (68861) Billed Units: 1 unit Evaluation, Therapeutic Activity (51991), Gait Training (82629) Timed Code Treatment (minutes): 24 Skilled Treatment [...] Conservation Training, (more content not included)... Normal [facility] BSCAN OD (RIGHT EYE)on 07-16 [facility] Radiology Study observation (narrative) [facility] CBC panel Auto (Bld)on 07-16 Erythrocyte distribution width (RBC) [Ratio] 17.8 % High 11.5-15.0 [facility] Comment on above: Order Comment: Speci men Type: BLOOD SPECIMEN Ordering Facility: [facility] Address: [address] [place] [address] Performed By: #### 5 8410-2 #### [facility] CLIA [id number] [address] [place] [address] [place] Hematocrit (Bld) [Volume fraction] 33.2 % Low 36.0-46.0 [facility] Comment on above: Order Comment: Speci men Type: BLOOD SPECIMEN Ordering Facility: [facility] Address: [address] [place] [address] Performed By: #### 5 8410-2 #### [facility] CLIA [id number] [address] [place] [address] [place] Hemoglobin (Bld) [Mass/Vol] 10.3 g/dL Low 11.5-15.5 [facility] Comment on above: Order Comment: Speci men Type: BLOOD SPECIMEN Ordering Facility: [facility] Address: [address] [place] [address] Performed By: #### 5 8410-2 #### [facility] CLIA [id number] [address] [place] [address] [place] MCH (RBC) [Entitic mass] 25.6 pg Low 26.0-34.0 [facility] Comment on above: Order Comment: Speci men Type: BLOOD SPECIMEN Ordering Facility: [facility] Address: [address] [place] [address] Performed By: #### 5 8410-2 #### [facility] CLIA [id number] [address] [place], [place] [address] [place] MCHC (RBC) [Mass/Vol] 31.0 g/dL Normal 30.5-36.0 [facility] Comment on above: Order Comment: Speci men Type: BLOOD SPECIMEN Ordering Facility: [facility] Address: [address] [place] [address] Performed By: #### 5 8410-2 #### [facility] CLIA [id number] [address] [place] [address] [place] MCV (RBC) [Entitic vol] 82.4 fL Normal 80.0-100.0 [facility] Comment on above: Order Comment: Speci men Type: BLOOD SPECIMEN Ordering Facility: [facility] Address: [address] [place] [address] Performed By: #### 5 8410-2 #### [facility] CLIA [id number] [address] [place] [address] [place] Nucleated RBC (Bld) [#/Vol] 10*3/uL Normal <0.01 [facility] Comment on above: Order Comment: Speci men Type: BLOOD SPECIMEN Ordering Facility: [facility] Address: [address] [place] [address] Performed By: #### 5 8410-2 #### [facility] CLIA [id number] [address] [place] [address] [place] Platelet mean volume (Bld) [Entitic vol] 9.8 fL Normal 9.0-12.7 [facility] Comment on above: Order Comment: Speci men Type: BLOOD SPECIMEN Ordering Facility: [facility] Address: [address] [place] [address] Performed By: #### 5 8410-2 #### [facility] CLIA [id number] [address] [place] [address] [place] Platelets (Bld) [#/Vol] 348 10*3/uL Normal 150-400 [facility] Comment on above: Order Comment: Speci men Type: BLOOD SPECIMEN Ordering Facility: [facility] Address: [address] [place] [address] Performed By: #### 5 8410-2 #### [facility] CLIA [id number] [address] [place] [address] [place] RBC (Bld) [#/Vol] 4.03 10*6/uL Normal 3.90-5.20 [facility] Comment on above: Order Comment: Speci men Type: BLOOD SPECIMEN Ordering Facility: [facility] Address: [address] [place] [address] Performed By: #### 5 8410-2 #### [facility] CLIA [id number] [address] [place] [address] [place] WBC (Bld) [#/Vol] 11.15 10*3/uL High 3.70-11.00 [facility] Comment on above: Order Comment: Speci men Type: BLOOD SPECIMEN Ordering Facility: [facility] Address: [address] [place] [address] Performed By: #### 5 8410-2 #### [facility] CLIA [id number] [address] [place] [address] [place] FUNDUS PHOTOS OU (BOTH EYES) on 07-16-2024 [facility] Radiology Study observation (narrative) Amarjit chaudhry [facility] Renal function 2000 panelon 07-16-2024 Albumin [Mass/Vol] 3.1 g/dL Low 3.9-4.9 [facility] Comment on above: Order Comment: Speci men Type: BLOOD SPECIMENOrdering Facility: [facility] Address: [address] [place] [address] Performed By: #### 2 4362-6 ####[facility] [id number] [place] [address] [place] Anion gap [Moles/Vol] 12 mmol/L Normal 8-15 [facility] Comment on above: Order Comment: Speci men Type: BLOOD SPECIMENOrdering Facility: [facility] Address: [address] [place] [id number] Performed By: #### 2 4362-6 ####[facility] [id number] [address] [address] [place] Calcium [Mass/Vol] 9.0 mg/dL Normal 8.5-10.2 [facility] Comment on above: Order Comment: Speci men Type: BLOOD SPECIMENOrdering Facility: [facility] Address: [address] [place], [place] [address] Performed By: #### 2 4362-6 ####[facility] [id number] [place] [address] [place] Chloride [Moles/Vol] 103 mmol/L Normal 98-107 [facility] Comment on above: Order Comment: Speci men Type: BLOOD SPECIMENOrdering Facility: [facility] Address: [address] [place], [place] [address] Performed By: #### 2 4362-6 ####[facility] [id number] [place] [address] [place] CO2 [Moles/Vol] 23 mmol/L Normal 22-30 [facility] Comment on above: Order Comment: Speci men Type: BLOOD SPECIMENOrdering Facility: [facility] Address: [address] [address] [place], [place] [address] Performed By: #### 2 4362-6 ####[facility] LABCLIA [id number] [place] [id number] [place] Creatinine [Mass/Vol] 1.09 mg/dL High 0.58-0.96 [facility] Comment on above: Order Comment: Speci men Type: BLOOD SPECIMENOrdering Facility: [facility] Address: [address] [place], [place] [address] Performed By: #### 2 4362-6 ####[facility] LABCLIA [id number] [place] [address] [place] Creatinine and Glomerular filtration rate.predicted panel (S/P/Bld) 50 mL/min/1.73m??? Low >=60 [facility] Comment on above: Order Comment: Rhina mason Type: BLOOD SPECIMENOrdering Facility: [facility] Address: [address] [place] [address] Result Comment: Isa mated Glomerular Filtration Rate [...] actual GFR. Performed By: #### 2 4362-6 ####[facility] [id number] [place] [address] [place] Glucose [Mass/Vol] 103 mg/dL High 74-99 [facility] Comment on above: Order Comment: Rhina mason Type: BLOOD SPECIMENOrdering Facility: [facility] Address: [address] [place] [address] Result Comment: The [place] [employer] (ADA) [...] 2016.39(Suppl 1). Performed By: #### 2 4362-6 ####[facility] LABIA [id number] [place] [address] [place] Phosphate [Mass/Vol] 2.9 mg/dL Normal 2.7-4.8 [facility] Comment on above: Order Comment: Speci men Type: BLOOD SPECIMENOrdering Facility: [facility] Address: [address] [place] [address] Performed By: #### 2 4362-6 ####[facility] LABCLIA [id number] [place] [address] [place] Potassium [Moles/Vol] 4.5 mmol/L Normal 3.7-5.1 [facility] Comment on above: Order Comment: Speci men Type: BLOOD SPECIMENOrdering Facility: [facility] Address: [address] [place] [address] Performed By: #### 2 4362-6 ####[facility] LABIA [id number] [place] [address] [place] Sodium [Moles/Vol] 138 mmol/L Normal 136-144 [facility] Comment on above: Order Comment: Speci men Type: BLOOD SPECIMENOrdering Facility: [facility] Address: [address] [place] [address] Performed By: #### 2 4362-6 ####[facility] LABCLIA [id number] [place] [address] [place] Urea nitrogen [Mass/Vol] 22 mg/dL High 7-21 [facility] Comment on above: Order Comment: Speci men Type: BLOOD SPECIMENOrdering Facility: [facility] Address: [address] [place] [address] Performed By: #### 2 4362-6 ####[facility] LABIA [id number] [place] [address] [place] THERAPY NTon 07-16-2024 THERAPY NT HNO ID: [id number] Author: SANTIAGO GUZMAN OT/L Service: Occupational Therapy Author Type: Occupational Therapist Type: Therapy (PT/OT/Speech/Resp) Filed: 07/16/2024 15:10 Note Text: Occupational Therapy Treatment Summary SERVICE DATE: 07/16/2024 SERVICE TIME: 1415 to 1500 [facility]: [facility] OT 6 Clicks Score: 15 DISCHARGE RECOMMENDATIONS [...] Weakness (generalized) TREATMENT INTERVENTIONS Self M[facility] Management (04969) Timed Code Treatment (minutes): 45 Skilled Treatment [...] Sit to Stand, Standing Balance to Improve [place] with ADLs/Self-Care, Sitting Balance to Improve [place] with ADLs/Self-Care, Life Roles/Routines/Habits THERAPEUTIC SKILLS USED [...] Assistance Sit (more content not included)... Normal [facility] CBC panel Auto (Bld)on 07-15 Erythrocyte distribution width (RBC) [Ratio] 17.8 % High 11.5-15.0 [facility] Comment on above: Order Comment: Speci men Type: BLOOD SPECIMEN Ordering Facility: [facility] Address: [address] [place] [address] Performed By: #### 2 4362-6 #### [facility] CLIA [id number] [address] [place] [address] [place] Hematocrit (Bld) [Volume fraction] 34.4 % Low 36.0-46.0 [facility] Comment on above: Order Comment: Speci men Type: BLOOD SPECIMEN Ordering Facility: [facility] Address: [address] [place] [address] Performed By: #### 2 4362-6 #### [facility] CLIA [id number] [address] [place] [address] [place] Hemoglobin (Bld) [Mass/Vol] 10.7 g/dL Low 11.5-15.5 [facility] Comment on above: Order Comment: Speci men Type: BLOOD SPECIMEN Ordering Facility: [facility] Address: [address] [place] [address] Performed By: #### 2 4362-6 #### [facility] CLIA [id number] [address] [place] [address] [place] MCH (RBC) [Entitic mass] 26.2 pg Normal 26.0-34.0 [facility] Comment on above: Order Comment: Speci men Type: BLOOD SPECIMEN Ordering Facility: [facility] Address: [address] [place] [address] Performed By: #### 2 4362-6 #### [facility] CLIA [id number] [address] [place] [address] [place] MCHC (RBC) [Mass/Vol] 31.1 g/dL Normal 30.5-36.0 [facility] Comment on above: Order Comment: Speci men Type: BLOOD SPECIMEN Ordering Facility: [facility] Address: [address] [place] [address] Performed By: #### 2 4362-6 #### [facility] CLIA [id number] [address] [place] [address] [place] MCV (RBC) [Entitic vol] 84.1 fL Normal 80.0-100.0 [facility] Comment on above: Order Comment: Speci men Type: BLOOD SPECIMEN Ordering Facility: [facility] Address: [address] [place] [address] Performed By: #### 2 4362-6 #### [facility] CLIA [id number] [address] [place] [address] [place] Nucleated RBC (Bld) [#/Vol] 10*3/uL Normal <0.01 [facility] Comment on above: Order Comment: Speci men Type: BLOOD SPECIMEN Ordering Facility: [facility] Address: [address] [place] [address] Performed By: #### 2 4362-6 #### [facility] CLIA [id number] [address] [place] [address] [place] Platelet mean volume (Bld) [Entitic vol] 10.1 fL Normal 9.0-12.7 [facility] Comment on above: Order Comment: Speci men Type: BLOOD SPECIMEN Ordering Facility: [facility] Address: [address] [place] [address] Performed By: #### 2 4362-6 #### [facility] CLIA [id number] [address] [place] [address] [place] Platelets (Bld) [#/Vol] 386 10*3/uL Normal 150-400 [facility] Comment on above: Order Comment: Speci men Type: BLOOD SPECIMEN Ordering Facility: [facility] Address: [address] [place] [address] Performed By: #### 2 4362-6 #### [facility] CLIA [id number] [address] [place] [address] [place] RBC (Bld) [#/Vol] 4.09 10*6/uL Normal 3.90-5.20 [facility] Comment on above: Order Comment: Speci men Type: BLOOD SPECIMEN Ordering Facility: [facility] Address: [address] [place] [address] Performed By: #### 2 4362-6 #### [facility] CLIA [id number] [address] [place] [address] [place] WBC (Bld) [#/Vol] 10.20 10*3/uL Normal 3.70-11.00 [facility] Comment on above: Order Comment: Speci men Type: BLOOD SPECIMEN Ordering Facility: [facility] Address: [address] [place] [address] Performed By: #### 2 4362-6 #### [facility] CLIA [id number] [address] [place] [address] [place] Renal function 2000 panelon 07-15-2024 Albumin [Mass/Vol] 3.5 g/dL Low 3.9-4.9 [facility] Comment on above: Order Comment: Speci men Type: BLOOD SPECIMENOrdering Facility: [facility] Address: [address] [place] [address] Performed By: #### 2 4362-6 ####[facility] LABCLIA [id number] [place] [address] [place] Anion gap [Moles/Vol] 12 mmol/L Normal 8-15 [facility] Comment on above: Order Comment: Speci men Type: BLOOD SPECIMENOrdering Facility: [facility] Address: [address] [place] [address] Performed By: #### 2 4362-6 ####[facility] LABCLIA [id number] [place] [address] [place] Calcium [Mass/Vol] 9.1 mg/dL Normal 8.5-10.2 [facility] Comment on above: Order Comment: Speci men Type: BLOOD SPECIMENOrdering Facility: [facility] Address: [address] [place] [address] Performed By: #### 2 4362-6 ####[facility] LABCLIA [id number] [place] [address] [place] Chloride [Moles/Vol] 101 mmol/L Normal 98-107 [facility] Comment on above: Order Comment: Speci men Type: BLOOD SPECIMENOrdering Facility: [facility] Address: [address] [place] [address] Performed By: #### 2 4362-6 ####[facility] LABCLIA [id number] [place] [address] [place] CO2 [Moles/Vol] 24 mmol/L Normal 22-30 [facility] Comment on above: Order Comment: Speci men Type: BLOOD SPECIMENOrdering Facility: [facility] Address: [address] [place] [address] Performed By: #### 2 4362-6 ####[facility] LABIA [id number] [place] [address] [place] Creatinine [Mass/Vol] 0.96 mg/dL Normal 0.58-0.96 [facility] Comment on above: Order Comment: Speci men Type: BLOOD SPECIMENOrdering Facility: [facility] Address: [address] [place] [address] Performed By: #### 2 4362-6 ####[facility] LABIA [id number] [place] [address] [place] Creatinine and Glomerular filtration rate.predicted panel (S/P/Bld) 58 mL/min/1.73m??? Low >=60 [facility] Comment on above: Order Comment: Speci men Type: BLOOD SPECIMENOrdering Facility: [facility] Address: [address] [place] [address] Result Comment: Isa mated Glomerular Filtration Rate [...] actual GFR. Performed By: #### 2 4362-6 ####[facility] LABCLIA [id number] [address] [address] [place] Glucose [Mass/Vol] 93 mg/dL Normal 74-99 [facility] Comment on above: Order Comment: Rhina mason Type: BLOOD SPECIMENOrdering Facility: [facility] Address: [address] [place] [address] Result Comment: The [place] [employer] (ADA) [...] 2016.39(Suppl 1). Performed By: #### 2 4362-6 ####[facility] LABCLIA [id number] [place] [id number] [place] Phosphate [Mass/Vol] 3.1 mg/dL Normal 2.7-4.8 [facility] Comment on above: Order Comment: Specrobson mason Type: BLOOD SPECIMENOrdering Facility: [facility] Address: [address] [place] [address] Performed By: #### 2 4362-6 ####[facility] LABCLIA [id number] [address] [address] [place] Potassium [Moles/Vol] 4.3 mmol/L Normal 3.7-5.1 [facility] Comment on above: Order Comment: Speci men Type: BLOOD SPECIMENOrdering Facility: [facility] Address: [address] [place] [address] Performed By: #### 2 4362-6 ####[facility] LABCLIA [id number] [place] [id number] [place] Sodium [Moles/Vol] 137 mmol/L Normal 136-144 [facility] Comment on above: Order Comment: Speci men Type: BLOOD SPECIMENOrdering Facility: [facility] Address: [address] [place] [address] Performed By: #### 2 4362-6 ####[facility] LABCLIA [id number] [place] [address] [place] Urea nitrogen [Mass/Vol] 19 mg/dL Normal 7-21 [facility] Comment on above: Order Comment: Speci men Type: BLOOD SPECIMENOrdering Facility: [facility] Address: [address] [place] [address] Performed By: #### 2 4362-6 ####[facility] LABCLIA [id number] [place] [address] [place] CBC panel Auto (Bld)on 07-14 Erythrocyte distribution width (RBC) [Ratio] 17.9 % High 11.5-15.0 [facility] Comment on above: Order Comment: Speci men Type: BLOOD SPECIMEN Ordering Facility: [facility] Address: [address] [place] [address] Performed By: #### 2 4362-6 #### [facility] CLIA [id number] [address] [place] [address] [place] Hematocrit (Bld) [Volume fraction] 33.8 % Low 36.0-46.0 [facility] Comment on above: Order Comment: Speci men Type: BLOOD SPECIMEN Ordering Facility: [facility] Address: [address] [place] [address] Performed By: #### 2 4362-6 #### [facility] CLIA [id number] [address] [place] [address] [place] Hemoglobin (Bld) [Mass/Vol] 10.7 g/dL Low 11.5-15.5 [facility] Comment on above: Order Comment: Speci men Type: BLOOD SPECIMEN Ordering Facility: [facility] Address: [address] [place] [address] Performed By: #### 2 4362-6 #### [facility] CLIA [id number] [address] [place] [address] [place] MCH (RBC) [Entitic mass] 26.4 pg Normal 26.0-34.0 [facility] Comment on above: Order Comment: Speci men Type: BLOOD SPECIMEN Ordering Facility: [facility] Address: [address] [place] [address] Performed By: #### 2 4362-6 #### [facility] CLIA [id number] [address] [place] [address] [place] MCHC (RBC) [Mass/Vol] 31.7 g/dL Normal 30.5-36.0 [facility] Comment on above: Order Comment: Speci men Type: BLOOD SPECIMEN Ordering Facility: [facility] Address: [address] [place] [address] Performed By: #### 2 4362-6 #### [facility] CLIA [id number] [address] [place] [address] [place] MCV (RBC) [Entitic vol] 83.5 fL Normal 80.0-100.0 [facility] Comment on above: Order Comment: Speci men Type: BLOOD SPECIMEN Ordering Facility: [facility] Address: [address] [place] [address] Performed By: #### 2 4362-6 #### [facility] CLIA [id number] [id number] [address] [place] Nucleated RBC (Bld) [#/Vol] 10*3/uL Normal <0.01 [facility] Comment on above: Order Comment: Speci men Type: BLOOD SPECIMEN Ordering Facility: [facility] Address: [address] [place] [address] Performed By: #### 2 4362-6 #### [facility] CLIA [id number] [address] [place] [address] [place] Platelet mean volume (Bld) [Entitic vol] 10.3 fL Normal 9.0-12.7 [facility] Comment on above: Order Comment: Speci men Type: BLOOD SPECIMEN Ordering Facility: [facility] Address: [address] [place] [address] Performed By: #### 2 4362-6 #### [facility] CLIA [id number] [address] [place] [address] [place] Platelets (Bld) [#/Vol] 345 10*3/uL Normal 150-400 [facility] Comment on above: Order Comment: Speci men Type: BLOOD SPECIMEN Ordering Facility: [facility] Address: [address] [place] [address] Performed By: #### 2 4362-6 #### [facility] CLIA [id number] [address] [place] [address] [place] RBC (Bld) [#/Vol] 4.05 10*6/uL Normal 3.90-5.20 [facility] Comment on above: Order Comment: Speci men Type: BLOOD SPECIMEN Ordering Facility: [facility] Address: [address] [place] [address] Performed By: #### 2 4362-6 #### [facility] CLIA [id number] [address] [place] [address] [place] WBC (Bld) [#/Vol] 11.07 10*3/uL High 3.70-11.00 [facility] Comment on above: Order Comment: Speci men Type: BLOOD SPECIMEN Ordering Facility: [facility] Address: [address] [place] [address] Performed By: #### 2 4362-6 #### [facility] CLIA [id number] [address] [place] [address] [place] Renal function 2000 panelon 07-14-2024 Albumin [Mass/Vol] 3.5 g/dL Low 3.9-4.9 [facility] Comment on above: Order Comment: Speci men Type: BLOOD SPECIMEN Ordering Facility: [facility] Address: [address] [place] [address] Performed By: #### 2 4362-6 #### [facility] CLIA [id number] [address] [place] [address] [place] Anion gap [Moles/Vol] 14 mmol/L Normal 8-15 [facility] Comment on above: Order Comment: Speci men Type: BLOOD SPECIMEN Ordering Facility: [facility] Address: [address] [place] [address] Performed By: #### 2 4362-6 #### [facility] CLIA [id number] [address] [place] [address] [place] Calcium [Mass/Vol] 9.1 mg/dL Normal 8.5-10.2 [facility] Comment on above: Order Comment: Speci men Type: BLOOD SPECIMEN Ordering Facility: [facility] Address: [address] [place] [address] Performed By: #### 2 4362-6 #### [facility] CLIA [id number] [address] [place] [address] [place] Chloride [Moles/Vol] 98 mmol/L Normal 98-107 [facility] Comment on above: Order Comment: Speci men Type: BLOOD SPECIMEN Ordering Facility: [facility] Address: [address] [place] [address] Performed By: #### 2 4362-6 #### [facility] CLIA [id number] [address] [place] [address] [place] CO2 [Moles/Vol] 22 mmol/L Normal 22-30 [facility] Comment on above: Order Comment: Speci men Type: BLOOD SPECIMEN Ordering Facility: [facility] Address: [address] [place] [address] Performed By: #### 2 4362-6 #### [facility] CLIA [id number] [address] [place] [address] [place] Creatinine [Mass/Vol] 1.01 mg/dL High 0.58-0.96 [facility] Comment on above: Order Comment: Speci men Type: BLOOD SPECIMEN Ordering Facility: [facility] Address: [address] [place] [address] Performed By: #### 2 4362-6 #### [facility] CLIA [id number] [address] [place] [address] [place] Creatinine and Glomerular filtration rate.predicted panel (S/P/Bld) 55 mL/min/1.73m??? Low >=60 [facility] Comment on above: Order Comment: Speci men Type: BLOOD SPECIMEN Ordering Facility: [facility] Address: [address] [place] [address] Result Comment: Isa mated Glomerular Filtration Rate [...] GFR. Performed By: #### 2 4362-6 #### [facility] CLIA [id number] [address] [place] [address] [place] Glucose [Mass/Vol] 131 mg/dL High 74-99 [facility] Comment on above: Order Comment: Speci men Type: BLOOD SPECIMEN Ordering Facility: [facility] Address: [address] [place], [place] [id number] Result Comment: The [place] [employer] (ADA) [...] 1). Performed By: #### 2 4362-6 #### [facility] CLIA [id number] [address] [place] [address] [place] Phosphate [Mass/Vol] 3.5 mg/dL Normal 2.7-4.8 [facility] Comment on above: Order Comment: Speci men Type: BLOOD SPECIMEN Ordering Facility: [facility] Address: [address] [place] [address] Performed By: #### 2 4362-6 #### [facility] CLIA [id number] [address] [place] [address] [place] Potassium [Moles/Vol] 4.1 mmol/L Normal 3.7-5.1 [facility] Comment on above: Order Comment: Speci men Type: BLOOD SPECIMEN Ordering Facility: [facility] Address: [address] [place] [address] Performed By: #### 2 4362-6 #### [facility] CLIA [id number] [address] [place] [address] [place] Sodium [Moles/Vol] 134 mmol/L Low 136-144 [facility] Comment on above: Order Comment: Speci men Type: BLOOD SPECIMEN Ordering Facility: [facility] Address: [address] [place], [place] [address] Performed By: #### 2 4362-6 #### [facility] CLIA [id number] [address] [place] [address] [place] Urea nitrogen [Mass/Vol] 19 mg/dL Normal 7-21 [facility] Comment on above: Order Comment: Speci men Type: BLOOD SPECIMEN Ordering Facility: [facility] Address: [address] [place] [address] Performed By: #### 2 4362-6 #### [facility] CLIA [id number] [address] [place] [address] [place] ANES POSTPROC EVALon 024 ANES POSTPROC EVAL HNO ID: [id number] Author: SIERRA FALK MD Service: ? Author Type: Anesthesiologist Type: Anesthesia Postprocedure Evaluation Filed: 07/13/2024 15:57 Note Text: POST ANESTHESIA EVALUATION NOTE : 1940 Procedure Summary Date: 07/13/24 Room / Location: [address] Anesthesia Start: 1222 Anesthesia Stop: 1337 [...] July 13, 2024 TIME: 3:57 PM CSN: [id number] Normal [facility] ANES PRE-OPon 07-13-2024 ANES PRE-OP HNO ID: [id number] Author: SIERRA FALK MD Service: ? Author Type: Anesthesiologist Type: Anesthesia Preprocedure Evaluation Filed: 07/13/2024 09:44 Note Text: ANESTHESIOLOGY DAY OF SURGERY NOTE : 1940 Procedure Information Date/Time: 07/13/241403 Procedure: ASPIRATION VITREOUS, CHOROIDAL FLUID, PARS PLANA APPROACH (Right: Eye) Location: [place] [address] / [facility] Surgeons: Savana Lopez MD Estimated [...] 0.5 tablets by mouth every 12 hours. grcqgcakxwe-iafsqsteh-h ilanter (TRELEGY ELLIPTA) 100-62.5-25 mcg inhalation powder Inhale 1 Puff as instructed once daily. acetaminophen (TYLENOL) 325 mg tablet Take 2 tablets by mouth every 6 hours as needed for pain. ascorbic acid (more content not included)... Normal [facility] CASE MANAG[place]ox [place] 07-13-2024 CASE MANAGEM HNO ID: [id number] Author: REBECA BELLE LSW Service: ? Author Type: Senior Technical Recruiter Type: Care Mgt Progress Note Filed: 07/13/2024 16:25 Note Text: CARE MANAGEMENT WEEKEND PLANNING NOTE NO WEEKEND DISCHARGE Disposition: Assisted Facility Anticipated Discharge Date: TBD CM followed up with pt's daughter for SNF choices. Pt is currently in the OR- unable to send referrals in careport or complete "edit note" side bar. 1)[facility] Tomlin 2)[facility] Botello 3)[facility] 4)[facility] 5)[facility] Will need accepting SNF and precert prior to dc. UPDATE 4:24pm: Referrals sent; awaiting response. Weekend Reclaimer Pager #: Please see Treatment Team for Care Management Weekend/Holiday coverage. SIGNATURE: SHAQUILLE Nuñez PATIENT NAME: Mel Castillo DATE: July 13, 2024 TIME: 3:09 PM PAGER/CONTACT #: [phone] Normal [facility] CBC panel Auto (Bld)on 07-13 Erythrocyte distribution width (RBC) [Ratio] 17.6 % High 11.5-15.0 [facility] Comment on above: Order Comment: Speci men Type: BLOOD SPECIMENOrdering Facility: [facility] Address: [address] [place] [address] Performed By: #### 5 8410-2 ####[facility] LABCLIA [id number] [place] [address] [place] Hematocrit (Bld) [Volume fraction] 34.5 % Low 36.0-46.0 [facility] Comment on above: Order Comment: Speci men Type: BLOOD SPECIMENOrdering Facility: [facility] Address: [address] [place] [address] Performed By: #### 5 8410-2 ####[facility] LABCLIA [id number] [place] [address] [place] Hemoglobin (Bld) [Mass/Vol] 10.8 g/dL Low 11.5-15.5 [facility] Comment on above: Order Comment: Speci men Type: BLOOD SPECIMENOrdering Facility: [facility] Address: [address] [place] [address] Performed By: #### 5 8410-2 ####[facility] LABCLIA [id number] [place] [address] [place] MCH (RBC) [Entitic mass] 26.1 pg Normal 26.0-34.0 [facility] Comment on above: Order Comment: Speci men Type: BLOOD SPECIMENOrdering Facility: [facility] Address: [address] [place] [address] Performed By: #### 5 8410-2 ####[facility] LABCLIA [id number] [place] [address] [place] MCHC (RBC) [Mass/Vol] 31.3 g/dL Normal 30.5-36.0 [facility] Comment on above: Order Comment: Speci men Type: BLOOD SPECIMENOrdering Facility: [facility] Address: [address] [place] [address] Performed By: #### 5 8410-2 ####[facility] LABCLIA [id number] [place] [address] [place] MCV (RBC) [Entitic vol] 83.3 fL Normal 80.0-100.0 [facility] Comment on above: Order Comment: Speci men Type: BLOOD SPECIMENOrdering Facility: [facility] Address: [address] [place] [address] Performed By: #### 5 8410-2 ####[facility] LABCLIA [id number] [place] [address] [place] Nucleated RBC (Bld) [#/Vol] 10*3/uL Normal <0.01 [facility] Comment on above: Order Comment: Speci men Type: BLOOD SPECIMENOrdering Facility: [facility] Address: [address] [place] [address] Performed By: #### 5 8410-2 ####[facility] LABCLIA [id number] [place] [address] [place] Platelet mean volume (Bld) [Entitic vol] 9.7 fL Normal 9.0-12.7 [facility] Comment on above: Order Comment: Speci men Type: BLOOD SPECIMENOrdering Facility: [facility] Address: [address] [place] [address] Performed By: #### 5 8410-2 ####[facility] LABCLIA [id number] [place] [address] [place] Platelets (Bld) [#/Vol] 334 10*3/uL Normal 150-400 [facility] Comment on above: Order Comment: Speci men Type: BLOOD SPECIMENOrdering Facility: [facility] Address: [address] [place] [address] Performed By: #### 5 8410-2 ####[facility] LABIA [id number] [place] [address] [place] RBC (Bld) [#/Vol] 4.14 10*6/uL Normal 3.90-5.20 [facility] Comment on above: Order Comment: Speci men Type: BLOOD SPECIMENOrdering Facility: [facility] Address: [address] [place] [address] Performed By: #### 5 8410-2 ####[facility] LABIA [id number] [place] [address] [place] WBC (Bld) [#/Vol] 10.74 10*3/uL Normal 3.70-11.00 [facility] Comment on above: Order Comment: Speci men Type: BLOOD SPECIMENOrdering Facility: [facility] Address: [address] [place] [address] Performed By: #### 5 8410-2 ####[facility] LABIA [id number] [place] [address] [place] ECHO WITH AGITATED SALINE CO NTRASTon 07-13-2024 ECHO WITH AGITATED SALINE CONTRAST Echocardiography Report: Transthoracic Echo [facility] Bedside Date of service: 07/13/2024 3:54:27 PM [...] * * Final * * * CC [facility] Image : [id number] Normal [facility] NUTRITIONon 07-13-2024 NUTRITION HNO ID: [id number] Author: PAWAN PRESLEY DTR Service: Nutrition Therapy Author Type: Supervisor Electric Motor Testing Type: Nutrition Filed: 07/13/2024 11:50 Note Text: NUTRITION THERAPY CONSUMER LOAN PROCESSOR NOTE SERVICE DATE: 07/13/2024 SERVICE TIME: 1045 [...] July 13, 2024 TIME: 11:49 AM Normal [facility] OPERATIVE NOon 07-13-2024 OPERATIVE NO HNO ID: [id number] Author: SAVANA LOPEZ MD Service: Ophthalmology Author Type: Physician Type: Operative Report Filed: 07/13/2024 13:32 Note Text: [place] [id number] [place] [facility] OPERATIVE REPORT LOG ID: [id number] Surgery/Procedure Date: 07/13/2024 Incision/Procedure Start Time: 12:43 PM Incision Close/Procedure End Time: 1:32 PM NAME: Mel Pop [facility] #: [id number] SURGEON(S) AND ROCKET SCIENTIST(S): Surgeons and Role: * Savana Lopez MD [...] MD Vitreoretinal Surgery AND Ocular Inflammatory Diseases [facility] [place] Normal [facility] Renal function 2000 panelon 07-13-2024 Albumin [Mass/Vol] 3.5 g/dL Low 3.9-4.9 [facility] Comment on above: Order Comment: Speci men Type: BLOOD SPECIMENOrdering Facility: [facility] Address: [address] [place] [address] Performed By: #### 2 4362-6 ####[facility] LABCLIA [id number] [place] [address] [place] Anion gap [Moles/Vol] 10 mmol/L Normal 8-15 [facility] Comment on above: Order Comment: Speci men Type: BLOOD SPECIMENOrdering Facility: [facility] Address: [address] [place] [id number] Performed By: #### 2 4362-6 ####[facility] LABCLIA [id number] [place] [address] [place] Calcium [Mass/Vol] 9.3 mg/dL Normal 8.5-10.2 [facility] Comment on above: Order Comment: Speci men Type: BLOOD SPECIMENOrdering Facility: [facility] Address: [address] [place] [address] Performed By: #### 2 4362-6 ####[facility] LABCLIA [id number] [place] [address] [place] Chloride [Moles/Vol] 100 mmol/L Normal 98-107 [facility] Comment on above: Order Comment: Speci men Type: BLOOD SPECIMENOrdering Facility: [facility] Address: [address] [place] [address] Performed By: #### 2 4362-6 ####[facility] LABCLIA [id number] [place] [address] [place] CO2 [Moles/Vol] 27 mmol/L Normal 22-30 [facility] Comment on above: Order Comment: Speci men Type: BLOOD SPECIMENOrdering Facility: [facility] Address: [address] [place], [place] [address] Performed By: #### 2 4362-6 ####[facility] LABCLIA [id number] [place] [id number] [place] Creatinine [Mass/Vol] 0.92 mg/dL Normal 0.58-0.96 [facility] Comment on above: Order Comment: Speci men Type: BLOOD SPECIMENOrdering Facility: [facility] Address: [address] [place], [place] [address] Performed By: #### 2 4362-6 ####[facility] LABCLIA [id number] [place] [id number] [place] Creatinine and Glomerular filtration rate.predicted panel (S/P/Bld) 62 mL/min/1.73m??? Normal >=60 [facility] Comment on above: Order Comment: Rhina mason Type: BLOOD SPECIMENOrdering Facility: [facility] Address: [address] [place] [address] Result Comment: Isa mated Glomerular Filtration Rate [...] actual GFR. Performed By: #### 2 4362-6 ####[facility] LABCLIA [id number] [place] [address] [place] Glucose [Mass/Vol] 103 mg/dL High 74-99 [facility] Comment on above: Order Comment: Rhina mason Type: BLOOD SPECIMENOrdering Facility: [facility] Address: [address] [place] [address] Result Comment: The [place] [employer] (ADA) [...] 2016.39(Suppl 1). Performed By: #### 2 4362-6 ####[facility] LABCLIA [id number] [place] [address] [place] Phosphate [Mass/Vol] 3.5 mg/dL Normal 2.7-4.8 [facility] Comment on above: Order Comment: Speci men Type: BLOOD SPECIMENOrdering Facility: [facility] Address: [address] [place] [address] Performed By: #### 2 4362-6 ####[facility] LABCLIA [id number] [place] [address] [place] Potassium [Moles/Vol] 4.2 mmol/L Normal 3.7-5.1 [facility] Comment on above: Order Comment: Speci men Type: BLOOD SPECIMENOrdering Facility: [facility] Address: [address] [place] [address] Performed By: #### 2 4362-6 ####[facility] LABCLIA [id number] [place] [address] [place] Sodium [Moles/Vol] 137 mmol/L Normal 136-144 [facility] Comment on above: Order Comment: Speci men Type: BLOOD SPECIMENOrdering Facility: [facility] Address: [address] [place] [address] Performed By: #### 2 4362-6 ####[facility] LABCLIA [id number] [place] [address] [place] Urea nitrogen [Mass/Vol] 12 mg/dL Normal 7-21 [facility] Comment on above: Order Comment: Speci men Type: BLOOD SPECIMENOrdering Facility: [facility] Address: [address] [place] [address] Performed By: #### 2 4362-6 ####[facility] LABCLIA [id number] [place] [address] [place] BSCAN OD (RIGHT EYE)on 07-12 [facility] Radiology Study observation (narrative) [facility] CBC panel Auto (Bld)on 07-12 Erythrocyte distribution width (RBC) [Ratio] 17.8 % High 11.5-15.0 [facility] Comment on above: Order Comment: Speci men Type: BLOOD SPECIMENOrdering Facility: [facility] Address: [address] [place] [address] Performed By: #### 5 8410-2 ####[facility] LABIA [id number] [place] [address] [place] Hematocrit (Bld) [Volume fraction] 34.7 % Low 36.0-46.0 [facility] Comment on above: Order Comment: Speci men Type: BLOOD SPECIMENOrdering Facility: [facility] Address: [address] [place] [address] Performed By: #### 5 8410-2 ####[facility] LABIA [id number] [place] [address] [place] Hemoglobin (Bld) [Mass/Vol] 10.6 g/dL Low 11.5-15.5 [facility] Comment on above: Order Comment: Speci men Type: BLOOD SPECIMENOrdering Facility: [facility] Address: [address] [place] [address] Performed By: #### 5 8410-2 ####[facility] LABIA [id number] [place] [address] [place] MCH (RBC) [Entitic mass] 26.4 pg Normal 26.0-34.0 [facility] Comment on above: Order Comment: Speci men Type: BLOOD SPECIMENOrdering Facility: [facility] Address: [address] [place] [address] Performed By: #### 5 8410-2 ####[facility] LABIA [id number] [place] [address] [place] MCHC (RBC) [Mass/Vol] 30.5 g/dL Normal 30.5-36.0 [facility] Comment on above: Order Comment: Speci men Type: BLOOD SPECIMENOrdering Facility: [facility] Address: [address] [place] [address] Performed By: #### 5 8410-2 ####[facility] LABCLIA [id number] [place] [address] [place] MCV (RBC) [Entitic vol] 86.3 fL Normal 80.0-100.0 [facility] Comment on above: Order Comment: Speci men Type: BLOOD SPECIMENOrdering Facility: [facility] Address: [address] [place] [address] Performed By: #### 5 8410-2 ####[facility] LABIA [id number] [place] [address] [place] Nucleated RBC (Bld) [#/Vol] 10*3/uL Normal <0.01 [facility] Comment on above: Order Comment: Speci men Type: BLOOD SPECIMENOrdering Facility: [facility] Address: [address] [place] [address] Performed By: #### 5 8410-2 ####[facility] LABIA [id number] [place] [address] [place] Platelet mean volume (Bld) [Entitic vol] 9.9 fL Normal 9.0-12.7 [facility] Comment on above: Order Comment: Speci men Type: BLOOD SPECIMENOrdering Facility: [facility] Address: [address] [place] [address] Performed By: #### 5 8410-2 ####[facility] LABIA [id number] [place] [address] [place] Platelets (Bld) [#/Vol] 301 10*3/uL Normal 150-400 [facility] Comment on above: Order Comment: Speci men Type: BLOOD SPECIMENOrdering Facility: [facility] Address: [address] [place] [address] Performed By: #### 5 8410-2 ####[facility] LABIA [id number] [place] [address] [place] RBC (Bld) [#/Vol] 4.02 10*6/uL Normal 3.90-5.20 [facility] Comment on above: Order Comment: Speci men Type: BLOOD SPECIMENOrdering Facility: [facility] Address: [address] [place] [address] Performed By: #### 5 8410-2 ####[facility] LABCLIA [id number] [place] [address] [place] WBC (Bld) [#/Vol] 10.07 10*3/uL Normal 3.70-11.00 [facility] Comment on above: Order Comment: Speci men Type: BLOOD SPECIMENOrdering Facility: [facility] Address: [address] [place] [address] Performed By: #### 5 8410-2 ####[facility] LABCLIA [id number] [place] [address] [place] PT EDon 07-12-2024 PT ED HNO ID: [id number] Author: GISSELL POPE RPh Service: Pharmacy Author [...] inpatient anticoagulant education. Gissell Pope RPh Normal [facility] Renal function 2000 panelon 07-12-2024 Albumin [Mass/Vol] 3.4 g/dL Low 3.9-4.9 [facility] Comment on above: Order Comment: Speci men Type: BLOOD SPECIMENOrdering Facility: [facility] Address: [address] [place], [place] [address] Performed By: #### 2 4362-6 ####[facility] LABCLIA [id number] [address] [address] [place] Anion gap [Moles/Vol] 14 mmol/L Normal 8-15 [facility] Comment on above: Order Comment: Speci men Type: BLOOD SPECIMENOrdering Facility: [facility] Address: [address] [place], [place] [address] Performed By: #### 2 4362-6 ####[facility] LABCLIA [id number] [place] [address] [place] Calcium [Mass/Vol] 9.3 mg/dL Normal 8.5-10.2 [facility] Comment on above: Order Comment: Speci men Type: BLOOD SPECIMENOrdering Facility: [facility] Address: [address] [place], [place] [address] Performed By: #### 2 4362-6 ####[facility] LABCLIA [id number] [place] [address] [place] Chloride [Moles/Vol] 101 mmol/L Normal 98-107 [facility] Comment on above: Order Comment: Speci men Type: BLOOD SPECIMENOrdering Facility: [facility] Address: [address] [place], [place] [address] Performed By: #### 2 4362-6 ####[facility] LABCLIA [id number] [place] [id number] [place] CO2 [Moles/Vol] 21 mmol/L Low 22-30 [facility] Comment on above: Order Comment: Speci men Type: BLOOD SPECIMENOrdering Facility: [facility] Address: [address] [place], [place] [address] Performed By: #### 2 4362-6 ####[facility] LABCLIA [id number] [place] [address] [place] Creatinine [Mass/Vol] 0.81 mg/dL Normal 0.58-0.96 [facility] Comment on above: Order Comment: Rhina mason Type: BLOOD SPECIMENOrdering Facility: [facility] Address: [address] [place] [address] Performed By: #### 2 4362-6 ####[facility] LABIA [id number] [place] [address] [place] Creatinine and Glomerular filtration rate.predicted panel (S/P/Bld) 72 mL/min/1.73m??? Normal >=60 [facility] Comment on above: Order Comment: Rhina mason Type: BLOOD SPECIMENOrdering Facility: [facility] Address: [address] [place] [address] Result Comment: Isa mated Glomerular Filtration Rate [...] actual GFR. Performed By: #### 2 4362-6 ####[facility] LABIA [id number] [place] [address] [place] Glucose [Mass/Vol] 100 mg/dL High 74-99 [facility] Comment on above: Order Comment: Rhina mason Type: BLOOD SPECIMENOrdering Facility: [facility] Address: [address] [place] [address] Result Comment: The [place] [employer] (ADA) [...] 2016.39(Suppl 1). Performed By: #### 2 4362-6 ####[facility] LABCLIA [id number] [place] [address] [place] Phosphate [Mass/Vol] 2.7 mg/dL Normal 2.7-4.8 [facility] Comment on above: Order Comment: Speci men Type: BLOOD SPECIMENOrdering Facility: [facility] Address: [address] [place] [address] Performed By: #### 2 4362-6 ####[facility] LABIA [id number] [place] [address] [place] Potassium [Moles/Vol] 4.0 mmol/L Normal 3.7-5.1 [facility] Comment on above: Order Comment: Speci men Type: BLOOD SPECIMENOrdering Facility: [facility] Address: [address] [place] [address] Performed By: #### 2 4362-6 ####[facility] LABIA [id number] [place] [address] [place] Sodium [Moles/Vol] 136 mmol/L Normal 136-144 [facility] Comment on above: Order Comment: Speci men Type: BLOOD SPECIMENOrdering Facility: [facility] Address: [address] [place] [address] Performed By: #### 2 4362-6 ####[facility] LABIA [id number] [place] [id number] [place] Urea nitrogen [Mass/Vol] 12 mg/dL Normal 7-21 [facility] Comment on above: Order Comment: Speci men Type: BLOOD SPECIMENOrdering Facility: [facility] Address: [address] [place] [address] Performed By: #### 2 4362-6 ####[facility] LABCLIA [id number] [place] [address] [place] Right eye Photo documentatio non 07-12-2024 [facility] Radiology Study observation (narrative) Amarjit chaudhry [facility] THERAPY NTon 07-12-2024 THERAPY NT HNO ID: [id number] Author: RYANN GUZMÁN OT/L Service: Occupational Therapy Author Type: Occupational Therapist Type: Therapy (PT/OT/Speech/Resp) Filed: 07/12/2024 12:26 Note Text: OCCUPATIONAL THERAPY MISSED VISIT SERVICE DATE: 07/12/2024 SERVICE TIME: 1226 ROOM: [place] [id number] ([facility] OPHTHALMOLOGY) Patient not seen due to Test / Procedure. SIGNATURE: JUANY Willett PATIENT NAME: Mel Castillo DATE: July 12, 2024 TIME: 12:26 PM Normal [facility] CBC panel Auto (Bld)on 07-11 Erythrocyte distribution width (RBC) [Ratio] 17.6 % High 11.5-15.0 [facility] Comment on above: Order Comment: Speci men Type: BLOOD SPECIMEN Ordering Facility: [facility] Address: [address] [place] [address] Performed By: #### 5 8410-2 #### [facility] CLIA [id number] [address] [place] [address] [place] Hematocrit (Bld) [Volume fraction] 32.3 % Low 36.0-46.0 [facility] Comment on above: Order Comment: Speci men Type: BLOOD SPECIMEN Ordering Facility: [facility] Address: [address] [place] [address] Performed By: #### 5 8410-2 #### [facility] CLIA [id number] [address] [place] [address] [place] Hemoglobin (Bld) [Mass/Vol] 10.5 g/dL Low 11.5-15.5 [facility] Comment on above: Order Comment: Speci men Type: BLOOD SPECIMEN Ordering Facility: [facility] Address: [address] [place] [address] Performed By: #### 5 8410-2 #### [facility] CLIA [id number] [address] [place] [address] [place] MCH (RBC) [Entitic mass] 27.0 pg Normal 26.0-34.0 [facility] Comment on above: Order Comment: Speci men Type: BLOOD SPECIMEN Ordering Facility: [facility] Address: [address] [place] [address] Performed By: #### 5 8410-2 #### [facility] CLIA [id number] [address] [place] [address] [place] MCHC (RBC) [Mass/Vol] 32.5 g/dL Normal 30.5-36.0 [facility] Comment on above: Order Comment: Speci men Type: BLOOD SPECIMEN Ordering Facility: [facility] Address: [address] [place] [address] Performed By: #### 5 8410-2 #### [facility] CLIA [id number] [address] [place] [address] [place] MCV (RBC) [Entitic vol] 83.0 fL Normal 80.0-100.0 [facility] Comment on above: Order Comment: Speci men Type: BLOOD SPECIMEN Ordering Facility: [facility] Address: [address] [place] [address] Performed By: #### 5 8410-2 #### [facility] CLIA [id number] [address] [place] [address] [place] Nucleated RBC (Bld) [#/Vol] 10*3/uL Normal <0.01 [facility] Comment on above: Order Comment: Speci men Type: BLOOD SPECIMEN Ordering Facility: [facility] Address: [address] [place] [address] Performed By: #### 5 8410-2 #### [facility] CLIA [id number] [address] [place], [place] [id number] [place] Platelet mean volume (Bld) [Entitic vol] 9.9 fL Normal 9.0-12.7 [facility] Comment on above: Order Comment: Speci men Type: BLOOD SPECIMEN Ordering Facility: [facility] Address: [address] [place] [address] Performed By: #### 5 8410-2 #### [facility] CLIA [id number] [address] [place] [address] [place] Platelets (Bld) [#/Vol] 289 10*3/uL Normal 150-400 [facility] Comment on above: Order Comment: Speci men Type: BLOOD SPECIMEN Ordering Facility: [facility] Address: [address] [place] [address] Performed By: #### 5 8410-2 #### [facility] CLIA [id number] [address] [place] [address] [place] RBC (Bld) [#/Vol] 3.89 10*6/uL Low 3.90-5.20 [facility] Comment on above: Order Comment: Speci men Type: BLOOD SPECIMEN Ordering Facility: [facility] Address: [address] [place] [address] Performed By: #### 5 8410-2 #### [facility] CLIA [id number] [address] [place], [place] [address] [place] WBC (Bld) [#/Vol] 8.32 10*3/uL Normal 3.70-11.00 [facility] Comment on above: Order Comment: Speci men Type: BLOOD SPECIMEN Ordering Facility: [facility] Address: [address] [place] [address] Performed By: #### 5 8410-2 #### [facility] CLIA [id number] [address] [place], [place] [address] [place] Renal function 2000 panelon 07-11-2024 Albumin [Mass/Vol] 3.4 g/dL Low 3.9-4.9 [facility] Comment on above: Order Comment: Speci men Type: BLOOD SPECIMENOrdering Facility: [facility] Address: [address] [place] [address] Performed By: #### 2 4362-6 ####[facility] [id number] [place] [address] [place] Anion gap [Moles/Vol] 11 mmol/L Normal 8-15 [facility] Comment on above: Order Comment: Speci men Type: BLOOD SPECIMENOrdering Facility: [facility] Address: [address] [place] [address] Performed By: #### 2 4362-6 ####[facility] [id number] [place] [address] [place] Calcium [Mass/Vol] 8.9 mg/dL Normal 8.5-10.2 [facility] Comment on above: Order Comment: Speci men Type: BLOOD SPECIMENOrdering Facility: [facility] Address: [address] [place] [address] Performed By: #### 2 4362-6 ####[facility] [id number] [place] [address] [place] Chloride [Moles/Vol] 103 mmol/L Normal 98-107 [facility] Comment on above: Order Comment: Speci men Type: BLOOD SPECIMENOrdering Facility: [facility] Address: [address] [id number] Performed By: #### 2 4362-6 ####[facility] [id number] [place] [address] [place] CO2 [Moles/Vol] 23 mmol/L Normal 22-30 [facility] Comment on above: Order Comment: Speci men Type: BLOOD SPECIMENOrdering Facility: [facility] Address: [address] [place] [address] Performed By: #### 2 4362-6 ####[facility]IA [id number] [address] STATES OF [facility] Creatinine [Mass/Vol] 0.91 mg/dL Normal 0.58-0.96 [facility] Comment on above: Order Comment: Rhina men Type: BLOOD SPECIMENOrdering Facility: [facility] Address: [address] [place] [address] Performed By: #### 2 4362-6 ####[facility] [id number] [address] STATES OF [facility] Creatinine and Glomerular filtration rate.predicted panel (S/P/Bld) 62 mL/min/1.73m??? Normal >=60 [facility] Comment on above: Order Comment: Rhina mason Type: BLOOD SPECIMENOrdering Facility: [facility] Address: [address] [place] [address] Result Comment: Isa mated Glomerular Filtration Rate [...] actual GFR. Performed By: #### 2 4362-6 ####[facility] [id number] [place] [address] [place] Glucose [Mass/Vol] 98 mg/dL Normal 74-99 [facility] Comment on above: Order Comment: Rhina men Type: BLOOD SPECIMENOrdering Facility: [facility] Address: [address] [place] [address] Result Comment: The [place] [employer] (ADA) [...] 2016.39(Suppl 1). Performed By: #### 2 4362-6 ####[facility] [id number] [place] [address] [place] Phosphate [Mass/Vol] 2.8 mg/dL Normal 2.7-4.8 [facility] Comment on above: Order Comment: Speci men Type: BLOOD SPECIMENOrdering Facility: [facility] Address: [address] [place] [address] Performed By: #### 2 4362-6 ####[facility]IA [id number] [place] [address] [place] Potassium [Moles/Vol] 3.6 mmol/L Low 3.7-5.1 [facility] Comment on above: Order Comment: Speci men Type: BLOOD SPECIMENOrdering Facility: [facility] Address: [address] [place] [address] Performed By: #### 2 4362-6 ####[facility]IA [id number] [place] [address] [place] Sodium [Moles/Vol] 137 mmol/L Normal 136-144 [facility] Comment on above: Order Comment: Speci men Type: BLOOD SPECIMENOrdering Facility: [facility] Address: [address] [place] [address] Performed By: #### 2 4362-6 ####[facility]IA [id number] [place] [address] [place] Urea nitrogen [Mass/Vol] 15 mg/dL Normal 7-21 [facility] Comment on above: Order Comment: Rhina mason Type: BLOOD SPECIMENOrdering Facility: [facility] Address: [address] [place] [address] Performed By: #### 2 4362-6 ####[facility]CLIA [id number] [facility] [id number] [id number] [place] CASE MANAGEMon 07-10-2024 CASE MANAGEM HNO ID: [id number] Author: TREY HUGHES LSW Service: Social Work Author Type: Senior Technical Recruiter Type: Care Mgt Progress Note Filed: 07/10/2024 14:42 Note Text: CARE MANAGEMENT PROGRESS NOTE SERVICE DATE: 07/10/2024 SERVICE TIME: 2:38 PM LOS: 3 days Post-Acute Discharge Planning Patient Goal(s): Increase strength Chester of Choice Explained: [place] of Choice Given: Yes Post-Acute Discharge Plan: [...] July 10, 2024 TIME: 2:38 PM Normal [facility] CBC panel Auto (Bld)on 07-10 Erythrocyte distribution width (RBC) [Ratio] 17.5 % High 11.5-15.0 [facility] Comment on above: Order Comment: Rhina mason Type: BLOOD SPECIMEN Ordering Facility: [facility] Address: [address] [place] [address] Performed By: #### 2 276-4 #### [facility] CLIA [id number] [address] [place] [address] [place] Hematocrit (Bld) [Volume fraction] 31.7 % Low 36.0-46.0 [facility] Comment on above: Order Comment: Rhina mason Type: BLOOD SPECIMEN Ordering Facility: [facility] Address: [address] [place] [address] Performed By: #### 2 276-4 #### [facility] CLIA [id number] [address] [place] [address] [place] Hemoglobin (Bld) [Mass/Vol] 9.9 g/dL Low 11.5-15.5 [facility] Comment on above: Order Comment: Speci men Type: BLOOD SPECIMEN Ordering Facility: [facility] Address: [address] [place] [address] Performed By: #### 2 276-4 #### [facility] CLIA [id number] [address] [place] [address] [place] MCH (RBC) [Entitic mass] 26.0 pg Normal 26.0-34.0 [facility] Comment on above: Order Comment: Speci men Type: BLOOD SPECIMEN Ordering Facility: [facility] Address: [address] [place] [address] Performed By: #### 2 276-4 #### [facility] CLIA [id number] [address] [place] [address] [place] MCHC (RBC) [Mass/Vol] 31.2 g/dL Normal 30.5-36.0 [facility] Comment on above: Order Comment: Speci men Type: BLOOD SPECIMEN Ordering Facility: [facility] Address: [address] [place] [address] Performed By: #### 2 276-4 #### [facility] CLIA [id number] [address] [place] [address] [place] MCV (RBC) [Entitic vol] 83.2 fL Normal 80.0-100.0 [facility] Comment on above: Order Comment: Speci men Type: BLOOD SPECIMEN Ordering Facility: [facility] Address: [address] [place] [address] Performed By: #### 2 276-4 #### [facility] CLIA [id number] [address] [place] [address] [place] Nucleated RBC (Bld) [#/Vol] 10*3/uL Normal <0.01 [facility] Comment on above: Order Comment: Speci men Type: BLOOD SPECIMEN Ordering Facility: [facility] Address: [address] [place] [address] Performed By: #### 2 276-4 #### [facility] CLIA [id number] [address] [place] [address] [place] Platelet mean volume (Bld) [Entitic vol] 10.3 fL Normal 9.0-12.7 [facility] Comment on above: Order Comment: Speci men Type: BLOOD SPECIMEN Ordering Facility: [facility] Address: [address] [place] [address] Performed By: #### 2 276-4 #### [facility] CLIA [id number] [address] [place] [address] [place] Platelets (Bld) [#/Vol] 336 10*3/uL Normal 150-400 [facility] Comment on above: Order Comment: Speci men Type: BLOOD SPECIMEN Ordering Facility: [facility] Address: [address] [place] [address] Performed By: #### 2 276-4 #### [facility] CLIA [id number] [address] [place] [address] [place] RBC (Bld) [#/Vol] 3.81 10*6/uL Low 3.90-5.20 [facility] Comment on above: Order Comment: Speci men Type: BLOOD SPECIMEN Ordering Facility: [facility] Address: [address] [place] [address] Performed By: #### 2 276-4 #### [facility] CLIA [id number] [address] [place] [address] [place] WBC (Bld) [#/Vol] 6.35 10*3/uL Normal 3.70-11.00 [facility] Comment on above: Order Comment: Speci men Type: BLOOD SPECIMEN Ordering Facility: [facility] Address: [address] [place] [address] Performed By: #### 2 276-4 #### [facility] CLIA [id number] [address] [place] [address] [place] Renal function 2000 panelon 07-10-2024 Albumin [Mass/Vol] 3.5 g/dL Low 3.9-4.9 [facility] Comment on above: Order Comment: Speci men Type: BLOOD SPECIMEN Ordering Facility: [facility] Address: [address] [place] [address] Performed By: #### 2 4362-6 #### [facility] CLIA [id number] [address] [place] [address] [place] Anion gap [Moles/Vol] 12 mmol/L Normal 8-15 [facility] Comment on above: Order Comment: Speci men Type: BLOOD SPECIMEN Ordering Facility: [facility] Address: [address] [place] [address] Performed By: #### 2 4362-6 #### [facility] CLIA [id number] [address] [place] [address] [place] Calcium [Mass/Vol] 9.0 mg/dL Normal 8.5-10.2 [facility] Comment on above: Order Comment: Speci men Type: BLOOD SPECIMEN Ordering Facility: [facility] Address: [address] [place] [address] Performed By: #### 2 4362-6 #### [facility] CLIA [id number] [address] [place] [address] [place] Chloride [Moles/Vol] 104 mmol/L Normal 98-107 [facility] Comment on above: Order Comment: Speci men Type: BLOOD SPECIMEN Ordering Facility: [facility] Address: [address] [place] [address] Performed By: #### 2 4362-6 #### [facility] CLIA [id number] [address] [place] [address] [place] CO2 [Moles/Vol] 22 mmol/L Normal 22-30 [facility] Comment on above: Order Comment: Speci men Type: BLOOD SPECIMEN Ordering Facility: [facility] Address: [address] [place] [address] Performed By: #### 2 4362-6 #### [facility] CLIA [id number] [address] [place] [address] [place] Creatinine [Mass/Vol] 0.93 mg/dL Normal 0.58-0.96 [facility] Comment on above: Order Comment: Speci men Type: BLOOD SPECIMEN Ordering Facility: [facility] Address: [address] [place] [address] Performed By: #### 2 4362-6 #### [facility] CLIA [id number] [address] [place] [address] [place] Creatinine and Glomerular filtration rate.predicted panel (S/P/Bld) 61 mL/min/1.73m??? Normal >=60 [facility] Comment on above: Order Comment: Speci men Type: BLOOD SPECIMEN Ordering Facility: [facility] Address: [address] [place] [address] Result Comment: Isa mated Glomerular Filtration Rate [...] GFR. Performed By: #### 2 4362-6 #### [facility] CLIA [id number] [address] [place] [address] [place] Glucose [Mass/Vol] 102 mg/dL High 74-99 [facility] Comment on above: Order Comment: Speci men Type: BLOOD SPECIMEN Ordering Facility: [facility] Address: [address] [place] [address] Result Comment: The [place] [employer] (ADA) [...] 1). Performed By: #### 2 4362-6 #### [facility] CLIA [id number] [address] [place] [address] [place] Phosphate [Mass/Vol] 2.6 mg/dL Low 2.7-4.8 [facility] Comment on above: Order Comment: Speci men Type: BLOOD SPECIMEN Ordering Facility: [facility] Address: [address] [place] [address] Performed By: #### 2 4362-6 #### [facility] CLIA [id number] [address] [place] [address] [place] Potassium [Moles/Vol] 3.9 mmol/L Normal 3.7-5.1 [facility] Comment on above: Order Comment: Speci men Type: BLOOD SPECIMEN Ordering Facility: [facility] Address: [address] [place] [address] Performed By: #### 2 4362-6 #### [facility] CLIA [id number] [address] [place] [address] [place] Sodium [Moles/Vol] 138 mmol/L Normal 136-144 [facility] Comment on above: Order Comment: Speci men Type: BLOOD SPECIMEN Ordering Facility: [facility] Address: [address] [place] [address] Performed By: #### 2 4362-6 #### [facility] CLIA [id number] [address] [place] [address] [place] Urea nitrogen [Mass/Vol] 21 mg/dL Normal 7-21 [facility] Comment on above: Order Comment: Speci men Type: BLOOD SPECIMEN Ordering Facility: [facility] Address: [address] [place] [address] Performed By: #### 2 4362-6 #### [facility] CLIA [id number] [address] [place] [address] [place] THERAPY NTon 07-10-2024 THERAPY NT HNO ID: [id number] Author: SANTIAGO GUZMAN OT/L Service: Occupational Therapy Author Type: Occupational Therapist Type: Therapy (PT/OT/Speech/Resp) Filed: 07/10/2024 10:00 Note Text: Occupational Therapy Evaluation Summary SERVICE DATE: 07/10/2024 SERVICE TIME: 0840 to 0920 ROOM: [place] [address] OT 6 Clicks Score: 15 DISCHARGE RECOMMENDATIONS [...] "shadows" and occasionally the color while / ore digger colors. SNF rec at this time pending [...] (generalized) TREATMENT INTERVENTIONS Evaluation, Self Mcc Management (72168) Timed Code Treatment (minutes): 25 Skilled Treatment [...] Sit to Stand, Standing Balance to Improve [place] with ADLs/Self-Care, Sitting Balance to Improve [place] with ADLs/Self-Care, Life Roles/Routines/Habits THERAPEUTIC SKILLS USED Therapeutic Use of Self, Physical Assist, Movement Facilitation, Management of Critical Lines, Tubes and/or Drains FUNCTIONAL STATUS Activities of Daily Living Assist Level Additional Information Feeding Minimal Assistance Grooming Moderate Assistance Bathing Upper Body Minimal Assistance Bathing Lower Body Ma (more content not included)... Normal [facility] CBC panel Auto (Bld)on 07-09 Erythrocyte distribution width (RBC) [Ratio] 17.7 % High 11.5-15.0 [facility] Comment on above: Order Comment: Rhina mason Type: BLOOD SPECIMEN Ordering Facility: [facility] Address: [address] [place] [address] Performed By: #### 2 4362-6 #### [facility] CLIA [id number] [address] [place] [address] [place] Hematocrit (Bld) [Volume fraction] 33.9 % Low 36.0-46.0 [facility] Comment on above: Order Comment: Rhina mason Type: BLOOD SPECIMEN Ordering Facility: [facility] Address: [address] [place] [address] Performed By: #### 2 4362-6 #### [facility] CLIA [id number] [address] [place] [address] [place] Hemoglobin (Bld) [Mass/Vol] 10.5 g/dL Low 11.5-15.5 [facility] Comment on above: Order Comment: Samiri isabella Type: BLOOD SPECIMEN Ordering Facility: [facility] Address: [address] [place] [address] Performed By: #### 2 4362-6 #### [facility] CLIA [id number] [address] [place] [address] [place] MCH (RBC) [Entitic mass] 26.6 pg Normal 26.0-34.0 [facility] Comment on above: Order Comment: Speci men Type: BLOOD SPECIMEN Ordering Facility: [facility] Address: [address] [place] [address] Performed By: #### 2 4362-6 #### [facility] CLIA [id number] [address] [place] [address] [place] MCHC (RBC) [Mass/Vol] 31.0 g/dL Normal 30.5-36.0 [facility] Comment on above: Order Comment: Speci men Type: BLOOD SPECIMEN Ordering Facility: [facility] Address: [address] [place] [address] Performed By: #### 2 4362-6 #### [facility] CLIA [id number] [address] [place] [address] [place] MCV (RBC) [Entitic vol] 86.0 fL Normal 80.0-100.0 [facility] Comment on above: Order Comment: Speci men Type: BLOOD SPECIMEN Ordering Facility: [facility] Address: [address] [place] [address] Performed By: #### 2 4362-6 #### [facility] CLIA [id number] [address] [place] [address] [place] Nucleated RBC (Bld) [#/Vol] 10*3/uL Normal <0.01 [facility] Comment on above: Order Comment: Speci men Type: BLOOD SPECIMEN Ordering Facility: [facility] Address: [address] [place] [address] Performed By: #### 2 4362-6 #### [facility] CLIA [id number] [address] [place] [address] [place] Platelet mean volume (Bld) [Entitic vol] 10.4 fL Normal 9.0-12.7 [facility] Comment on above: Order Comment: Speci men Type: BLOOD SPECIMEN Ordering Facility: [facility] Address: [address] [place] [address] Performed By: #### 2 4362-6 #### [facility] CLIA [id number] [address] [place] [address] [place] Platelets (Bld) [#/Vol] 346 10*3/uL Normal 150-400 [facility] Comment on above: Order Comment: Speci men Type: BLOOD SPECIMEN Ordering Facility: [facility] Address: [address] [place] [address] Performed By: #### 2 4362-6 #### [facility] CLIA [id number] [address] [place] [address] [place] RBC (Bld) [#/Vol] 3.94 10*6/uL Normal 3.90-5.20 [facility] Comment on above: Order Comment: Speci men Type: BLOOD SPECIMEN Ordering Facility: [facility] Address: [address] [place] [address] Performed By: #### 2 4362-6 #### [facility] CLIA [id number] [address] [place] [address] [place] WBC (Bld) [#/Vol] 8.22 10*3/uL Normal 3.70-11.00 [facility] Comment on above: Order Comment: Speci men Type: BLOOD SPECIMEN Ordering Facility: [facility] Address: [address] [place] [address] Performed By: #### 2 4362-6 #### [facility] CLIA [id number] [address] [place] [address] [place] Renal function 2000 panelon 07-09-2024 Albumin [Mass/Vol] 3.6 g/dL Low 3.9-4.9 [facility] Comment on above: Order Comment: Speci men Type: BLOOD SPECIMEN Ordering Facility: [facility] Address: [address] [place] [address] Performed By: #### 2 4362-6 #### [facility] CLIA [id number] [address] [place] [address] [place] Anion gap [Moles/Vol] 11 mmol/L Normal 8-15 [facility] Comment on above: Order Comment: Speci men Type: BLOOD SPECIMEN Ordering Facility: [facility] Address: [address] [place] [address] Performed By: #### 2 4362-6 #### [facility] CLIA [id number] [address] [place] [address] [place] Calcium [Mass/Vol] 8.8 mg/dL Normal 8.5-10.2 [facility] Comment on above: Order Comment: Speci men Type: BLOOD SPECIMEN Ordering Facility: [facility] Address: [address] [place] [address] Performed By: #### 2 4362-6 #### [facility] CLIA [id number] [address] [place] [address] [place] Chloride [Moles/Vol] 103 mmol/L Normal 98-107 [facility] Comment on above: Order Comment: Speci men Type: BLOOD SPECIMEN Ordering Facility: [facility] Address: [address] [place] [address] Performed By: #### 2 4362-6 #### [facility] LAB CLIA [id number] [address] [place] [address] [place] CO2 [Moles/Vol] 22 mmol/L Normal 22-30 [facility] Comment on above: Order Comment: Speci men Type: BLOOD SPECIMEN Ordering Facility: [facility] Address: [address] [place], [place] [address] Performed By: #### 2 4362-6 #### [facility] CLIA [id number] [address] [place], [place] [address] [place] Creatinine [Mass/Vol] 0.94 mg/dL Normal 0.58-0.96 [facility] Comment on above: Order Comment: Rhina mason Type: BLOOD SPECIMEN Ordering Facility: [facility] Address: [address] [place] [address] Performed By: #### 2 4362-6 #### [facility] CLIA [id number] [address] [place] [address] [place] Creatinine and Glomerular filtration rate.predicted panel (S/P/Bld) 60 mL/min/1.73m??? Normal >=60 [facility] Comment on above: Order Comment: Rhina mason Type: BLOOD SPECIMEN Ordering Facility: [facility] Address: [address] [place] [address] Result Comment: Isa mated Glomerular Filtration Rate [...] GFR. Performed By: #### 2 4362-6 #### [facility] CLIA [id number] [address] [place] [address] [place] Glucose [Mass/Vol] 158 mg/dL High 74-99 [facility] Comment on above: Order Comment: Rhina mason Type: BLOOD SPECIMEN Ordering Facility: [facility] Address: [address] [place] [address] Result Comment: The [place] [employer] (ADA) [...] 1). Performed By: #### 2 4362-6 #### [facility] CLIA [id number] [address] [place] [address] [place] Phosphate [Mass/Vol] 2.0 mg/dL Low 2.7-4.8 [facility] Comment on above: Order Comment: Speci men Type: BLOOD SPECIMEN Ordering Facility: [facility] Address: [address] [place] [address] Performed By: #### 2 4362-6 #### [facility] CLIA [id number] [address] [place] [address] [place] Potassium [Moles/Vol] 4.1 mmol/L Normal 3.7-5.1 [facility] Comment on above: Order Comment: Speci men Type: BLOOD SPECIMEN Ordering Facility: [facility] Address: [address] [place] [address] Performed By: #### 2 4362-6 #### [facility] CLIA [id number] [address] [place] [address] [place] Sodium [Moles/Vol] 136 mmol/L Normal 136-144 [facility] Comment on above: Order Comment: Speci men Type: BLOOD SPECIMEN Ordering Facility: [facility] Address: [address] [place] [address] Performed By: #### 2 4362-6 #### [facility] CLIA [id number] [address] [place] [address] [place] Urea nitrogen [Mass/Vol] 18 mg/dL Normal 7-21 [facility] Comment on above: Order Comment: Speci men Type: BLOOD SPECIMEN Ordering Facility: [facility] Address: [address] [place] [address] Performed By: #### 2 4362-6 #### [facility] CLIA [id number] [address] [place] [address] [place] CONSULTon 07-08-2024 CONSULT HNO ID: [id number] Author: JARED GILMORE MD Service: Ophthalmology Author [...] Mon-Tue, 7 am - 5 pm, page [phone] Mon-Tue, 5 pm - 7 am, page [phone] Weekends (Fri 5 pm to Mon 7 am), page [phone] EXAM: Base Eye Exam Visual Acuity Right Left Dist sc CF at 3' Tonometry (Applanation, 8:30 AM) Right Left Pressure 14 Pupils Dark Light Shape React Right 6 (more content not included)... Normal [facility] [id number] 07-07-2024 [id number] Normal [facility] BASIC METABOLIC PANELon - Anion gap [Moles/Vol] 4 mmol/L Normal 3-13 [facility] Comment on above: Performed By: #### L AB15 ####Drapery Counselor: VELMA VALADEZ ([phone])[facility])[address] [place] [address] Calcium [Mass/Vol] 8.7 mg/dL Low 8.8-10.0 [facility] Comment on above: Performed By: #### L AB15 ####Drapery Counselor: VELMA VALADEZ ([phone])[facility] [place] [address] Chloride [Moles/Vol] 111 mmol/L High 98-107 [facility] Comment on above: Performed By: #### L AB15 ####Drapery Counselor: VELMA VALADEZ ([phone])[facility])[address] [place] [address] CO2 [Moles/Vol] 23 mmol/L Normal 23-31 [facility] Comment on above: Performed By: #### L AB15 ####Drapery Counselor: VELMA VALADEZ ([phone])[facility])[address] [place] [address] Creatinine [Mass/Vol] 0.84 mg/dL Normal 0.57-1.11 [facility] Comment on above: Performed By: #### L AB15 ####Drapery Counselor: VELMA VALADEZ ([phone])[facility])[address] [place] [address] GLOMERULAR FILTRATION RATE ML/MIN/1.73 SQ M.PREDICTED 68.6 mL/min/1.73m*2 Normal >60.0 [facility] Comment on above: Result Comment: Calc ulation based on the Chronic Kidney Disease Epidemiology Collaboration (CKD-EPI) equation refit without adjustment for race Performed By: #### L AB15 ####Drapery Counselor: VELMA VAALDEZ ([phone])[facility])[address] [place] [address] Glucose [Mass/Vol] 102 mg/dL Normal 82-115 [facility] Comment on above: Performed By: #### L AB15 ####Drapery Counselor: VELMA VALADEZ ([phone])[facility])[address] [place] [address] Potassium [Moles/Vol] 4.0 mmol/L Normal 3.5-5.1 [facility] Comment on above: Result Comment: [facility] potassium values may be up to 0.5 mmol/L lower than serum values. Performed By: #### L AB15 ####Drapery Counselor: VELMA VALADEZ ([phone])[facility])[address] [place] [address] Sodium [Moles/Vol] 138 mmol/L Normal 136-145 [facility] Comment on above: Performed By: #### L AB15 ####Drapery Counselor: VELMA VALADEZ ([phone])[facility])[address] [place] [address] Urea nitrogen [Mass/Vol] 19 mg/dL Normal 9-23 [facility] Comment on above: Performed By: #### L AB15 ####Drapery Counselor: VELMA VALADEZ ([phone])[address] Basic metabolic 1998 panelon 07-07-2024 Anion gap [Moles/Vol] 4 mmol/L 3 - 13 mmol/L [facility] Calcium [Mass/Vol] 8.7 mg/dL Low 8.8 - 10. 0 mg/dL [facility] Chloride [Moles/Vol] 111 mmol/L High 98 - 10 7 mmol/L [facility] CO2 [Moles/Vol] 23 mmol/L 23 - 31 mmol/L [facility] Creatinine [Mass/Vol] 0.84 mg/dL 0.57 - 1.11 mg/dL [facility] GFR/1.73 sq M.predicted (S/P/Bld) [Vol rate/Area] 68.6 mL/min - PINF [facility] Comment on above: Calculation based on the Chronic Kidney Disease Epidemiology Collaboration (CKD-EPI) equation refit without adjustment for race Glucose [Mass/Vol] 102 mg/dL 82 - 115 mg/dL [facility] Interpretation and review of laboratory results Abnormal [facility] Potassium [Moles/Vol] 4 mmol/L 3.5 - 5.1 mmol/L [facility] Comment on above: Plasma potassium chris ues may be up to 0.5 mmol/L lower than serum values. Sodium [Moles/Vol] 138 mmol/L 136 - 145 mmol/L [facility] Urea nitrogen [Mass/Vol] 19 mg/dL 9 - 23 mg/dL [facility] CBC W Auto Differential pane l (Bld)Ordered By: Devika Eisenbegr on 07-07-2024 Basophils (Bld) [#/Vol] 0 10*3/uL 0.0 - 0.2 10*3/uL [facility] Basophils/100 WBC (Bld) 0.4 % 0.0 - 2.0 % [facility] Eosinophils (Bld) [#/Vol] 0.1 10*3/uL 0.0 - 0.5 10*3/uL [facility] Eosinophils/100 WBC (Bld) 1.3 % 0.0 - 6.0 % [facility] Erythrocyte distribution width (RBC) [Ratio] 17.6 % High 11.5 - 15.0 % [facility] Hematocrit (Bld) [Volume fraction] 29.9 % Low 35.0 - 47.0 % [facility] Hemoglobin (Bld) [Mass/Vol] 9.1 g/dL Low 11.7 - 16.0 g/dL [facility] Immature granulocytes (Bld) [#/Vol] 0 10*3/uL NINF - 0.1 10*3/uL [facility] Immature granulocytes/100 WBC (Bld) 0.2 % 0.0 - 2.0 % [facility] Interpretation and review of laboratory results Abnormal [facility] Lymphocytes (Bld) [#/Vol] 1.2 10*3/uL 1.0 - 4.3 10*3/uL [facility] Lymphocytes/100 WBC (Bld) 22 % 15.0 - 45.0 % [facility] MCH (RBC) [Entitic mass] 25.9 pg Low 26.0 - 34.0 pg [facility] MCHC (RBC) [Mass/Vol] 30.4 % Low 30.5 - 36.0 % [facility] MCV (RBC) [Entitic vol] 84.9 fL 77.0 - 99.0 fL [facility] Monocytes (Bld) [#/Vol] 0.6 10*3/uL 0.0 - 0.9 10*3/uL [facility] Monocytes/100 WBC (Bld) 10 % 5.0 - 13.0 % [facility] Neutrophils (Bld) [#/Vol] 3.7 10*3/uL 1.8 - 7.5 10*3/uL [facility] Neutrophils/100 WBC (Bld) 66.1 % 38.0 - 82.0 % [facility] Nucleated RBC/100 WBC (Bld) [Ratio] 0 % [facility] [employer] Platelet mean volume (Bld) [Entitic vol] 9.8 fL 9.0 - 12.7 fL [facility] Platelets (Bld) [#/Vol] 301 10*3/uL 140 - 440 10*3/uL [facility] RBC (Bld) [#/Vol] 3.52 10*6/uL Low 3.80 - 5.2 0 10*6/uL [facility] WBC (Bld) [#/Vol] 5.6 10*3/uL 3.6 - 10.7 10*3/uL [facility] CBC WITH AUTO DIFFERENTIALon 07-07-2024 Basophils (Bld) [#/Vol] 0.0 10*3/uL Normal 0.0-0.2 [facility] Comment on above: Performed By: #### L [id number] ####Drapery Counselor: VELMA VALADEZ ([phone])[facility])[address] [place] [address] Basophils/100 WBC (Bld) 0.4 % Normal 0.0-2.0 [facility] Comment on above: Performed By: #### L [id number] ####Drapery Counselor: VELMA VALADEZ ([phone])[facility] ([facility])[address] [place] [address] Eosinophils (Bld) [#/Vol] 0.1 10*3/uL Normal 0.0-0.5 [facility] Comment on above: Performed By: #### L [id number] ####Drapery Counselor: VELMA VALADEZ ([phone])[facility] ([facility])[address] [place] [address] Eosinophils/100 WBC (Bld) 1.3 % Normal 0.0-6.0 [facility] Comment on above: Performed By: #### L [id number] ####Drapery Counselor: VELMA VALADEZ ([phone])[facility] ([facility])[address] [place] [address] Erythrocyte distribution width (RBC) [Ratio] 17.6 % High 11.5-15.0 [facility] Comment on above: Performed By: #### L [id number] ####Drapery Counselor: VELMA [phone])[facility] ([address] Hematocrit (Bld) [Volume fraction] 29.9 % Low 35.0-47.0 [facility] Comment on above: Performed By: #### L [id number] ####Drapery Counselor: VELMA VALADEZ ([phone])[facility])[address] [place] [address] Hemoglobin (Bld) [Mass/Vol] 9.1 g/dL Low 11.7-16.0 [facility] Comment on above: Performed By: #### L [id number] ####Drapery Counselor: VELMA VALADEZ ([phone])[facility])[address] [place] [address] IMMATURE GRANS % 0.2 % Normal 0.0-2.0 [facility] Comment on above: Performed By: #### L [id number] ####Drapery Counselor: VELMA VALADEZ ([phone])[facility])[address] [place] [address] IMMATURE GRANS ABSOLUTE 0.0 10*3/uL Normal <0.1 [facility] Comment on above: Performed By: #### L [id number] ####Drapery Counselor: VELMA VALADEZ ([phone])[facility])[address] [place] [address] Lymphocytes (Bld) [#/Vol] 1.2 10*3/uL Normal 1.0-4.3 [facility] Comment on above: Performed By: #### L [id number] ####Drapery Counselor: VELMA VALADEZ ([phone])[facility])[address] [place] [address] Lymphocytes/100 WBC (Bld) 22.0 % Normal 15.0-45.0 [facility] Comment on above: Performed By: #### L [id number] ####Drapery Counselor: VELMA VALADEZ ([phone])[facility])[address] [place] [address] MCH (RBC) [Entitic mass] 25.9 pg Low 26.0-34.0 [facility] Comment on above: Performed By: #### L [id number] ####Drapery Counselor: VELMA VALADEZ ([phone])[facility])[address] [place] [address] MCHC 30.4 % Low 30.5-36.0 [facility] Comment on above: Performed By: #### L [id number] ####Drapery Counselor: VELMA VALADEZ ([phone])[facility])[address] [place] [address] MCV (RBC) [Entitic vol] 84.9 fL Normal 77.0-99.0 [facility] Comment on above: Performed By: #### L [id number] ####Drapery Counselor: VELMA VALADEZ ([phone])[facility])[address] [place] [address] Monocytes (Bld) [#/Vol] 0.6 10*3/uL Normal 0.0-0.9 [facility] Comment on above: Performed By: #### L [id number] ####Drapery Counselor: VELMA VALADEZ ([phone])[facility])[address] [place] [address] Monocytes/100 WBC (Bld) 10.0 % Normal 5.0-13.0 [facility] Comment on above: Performed By: #### L [id number] ####Drapery Counselor: VELMA VALADEZ ([phone])[facility])[address] [place] [address] NEUTROPHILS ABSOLUTE 3.7 10*3/uL Normal 1.8-7.5 [facility] Comment on above: Performed By: #### L [id number] ####Drapery Counselor: VELMA VALADEZ ([phone])[facility])[address] [place] [address] Neutrophils/100 WBC (Bld) 66.1 % Normal 38.0-82.0 [facility] Comment on above: Performed By: #### L [id number] ####Drapery Counselor: VELMA VALADEZ ([phone])[facility] ([facility])[address] [place] [address] NRBC 0.0 /100 WBCs Normal 0.0-2.0 [facility] Comment on above: Performed By: #### L [id number] ####Drapery Counselor: VELMA VALADEZ ([phone])[facility])[address] [place] [address] Platelet mean volume (Bld) [Entitic vol] 9.8 fL Normal 9.0-12.7 [facility] Comment on above: Performed By: #### L [id number] ####Drapery Counselor: VELMA VALADEZ ([phone])[facility])[address] [place] [address] Platelets (Bld) [#/Vol] 301 10*3/uL Normal 140-440 [facility] Comment on above: Performed By: #### L [id number] ####Drapery Counselor: VELMA VALADEZ ([phone])[facility] ([facility])[address] [place] [address] RBC (Bld) [#/Vol] 3.52 10*6/uL Low 3.80-5.20 [facility] Comment on above: Performed By: #### L [id number] ####Drapery Counselor: VELMA VALADEZ ([phone])[facility])[address] [place] [address] WBC (Bld) [#/Vol] 5.6 10*3/uL Normal 3.6-10.7 [facility] Comment on above: Performed By: #### L [id number] ####Drapery Counselor: EVLMA VALADEZ ([phone])[facility])[address] [place] [address] CBC panel Auto (Bld)on 07-07 Erythrocyte distribution width (RBC) [Ratio] 17.5 % High 11.5-15.0 [facility] Comment on above: Order Comment: Speci men Type: BLOOD SPECIMEN Ordering Facility: [facility] Address: [address] [place] [address] Performed By: #### 2 4362-6 #### [facility] CLIA [id number] [address] [place] [address] [place] Hematocrit (Bld) [Volume fraction] 32.7 % Low 36.0-46.0 [facility] Comment on above: Order Comment: Speci men Type: BLOOD SPECIMEN Ordering Facility: [facility] Address: [address] [place] [address] Performed By: #### 2 4362-6 #### [facility] CLIA [id number] [address] [place] [address] [place] Hemoglobin (Bld) [Mass/Vol] 10.2 g/dL Low 11.5-15.5 [facility] Comment on above: Order Comment: Speci men Type: BLOOD SPECIMEN Ordering Facility: [facility] Address: [address] [place] [address] Performed By: #### 2 4362-6 #### [facility] CLIA [id number] [address] [place] [address] [place] MCH (RBC) [Entitic mass] 26.8 pg Normal 26.0-34.0 [facility] Comment on above: Order Comment: Speci men Type: BLOOD SPECIMEN Ordering Facility: [facility] Address: [address] [place] [address] Performed By: #### 2 4362-6 #### [facility] CLIA [id number] [address] [place] [address] [place] MCHC (RBC) [Mass/Vol] 31.2 g/dL Normal 30.5-36.0 [facility] Comment on above: Order Comment: Speci men Type: BLOOD SPECIMEN Ordering Facility: [facility] Address: [address] [place] [address] Performed By: #### 2 4362-6 #### [facility] CLIA [id number] [address] [place] [address] [place] MCV (RBC) [Entitic vol] 86.1 fL Normal 80.0-100.0 [facility] Comment on above: Order Comment: Speci men Type: BLOOD SPECIMEN Ordering Facility: [facility] Address: [address] [place] [address] Performed By: #### 2 4362-6 #### [facility] CLIA [id number] [address] [place] [address] [place] Nucleated RBC (Bld) [#/Vol] 10*3/uL Normal <0.01 [facility] Comment on above: Order Comment: Speci men Type: BLOOD SPECIMEN Ordering Facility: [facility] Address: [address] [place] [address] Performed By: #### 2 4362-6 #### [facility] CLIA [id number] [address] [place] [address] [place] Platelet mean volume (Bld) [Entitic vol] 9.8 fL Normal 9.0-12.7 [facility] Comment on above: Order Comment: Speci men Type: BLOOD SPECIMEN Ordering Facility: [facility] Address: [address] [place] [address] Performed By: #### 2 4362-6 #### [facility] CLIA [id number] [address] [place] [address] [place] Platelets (Bld) [#/Vol] 284 10*3/uL Normal 150-400 [facility] Comment on above: Order Comment: Speci men Type: BLOOD SPECIMEN Ordering Facility: [facility] Address: [address] [place] [address] Performed By: #### 2 4362-6 #### [facility] CLIA [id number] [address] [place] [address] [place] RBC (Bld) [#/Vol] 3.80 10*6/uL Low 3.90-5.20 [facility] Comment on above: Order Comment: Speci men Type: BLOOD SPECIMEN Ordering Facility: [facility] Address: [address] [place] [address] Performed By: #### 2 4362-6 #### [facility] CLIA [id number] [address] [place] [address] [place] WBC (Bld) [#/Vol] 5.72 10*3/uL Normal 3.70-11.00 [facility] Comment on above: Order Comment: Speci men Type: BLOOD SPECIMEN Ordering Facility: [facility] Address: [address] [place] [address] Performed By: #### 2 4362-6 #### [facility] CLIA [id number] [address] [place] [address] [place] ORBITS WO IVCONon -21-[address] ORBITS WO IVCON * * *Final Report* * * DATE OF EXAM: Jul 07 2024 8:21PM [facility]10 - CT ORBITS WO IVCON / [...] changes. Unchanged appearance of left globe/phthisis bulbi. Grants Analyst: PSCB Transcribe Date/Time: Jul 07 2024 8:24P Dictated by : ULICES LEBLANC MD This examination was interpreted and the report reviewed and electronically signed by: DE JAIN MD on Jul 07 2024 9:18PM EST [id number] Normal [facility] HISTORY PHYSICALon HISTORY PHYSICAL HNO ID: [id number] Author: FELICIA LEVY MD Service: General Internal [...] 3pm to 7am): Please page on-call resident [phone] (Jonathan Chaudhry Subjective CHIEF COMPLAINT: Acute angle closure glaucoma HPI: Mel Castillo is a 83 year old female with a PMH of COPD, HTN, Afib (on Lovenox), CKD Stage 3, L retinal detachment, recurrent embolic events, and 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 She was subsequently taken by the central office mechanic for peripheral iridotomy's, which helped to reduce elevated intraocular pressure down to 10.2 mmHg in the R eye. Furthermore, was evaluated by stroke team at [facility] who reviewed her images and believed her headache and severe vision loss was secondary to the acute closure glaucoma and not stroke. Ultimately, it was determined that due to vision now being reduced to only one eye she required retinal specialist at [place] for repair of acute retinal detachment on [...] of breath., Disp: , Rfl: , 07/06/2024 qnlckzijoqg-vuqjnvbat-n ilanter (TRELEGY ELLIPTA) 100-62.5-25 mcg inhalation powder, Inhale 1 (more content not included)... Normal [facility] NURSING PROGon 07-07-2024 NURSING PROG HNO ID: [id number] Author: SONNY CASTILLO, RADHA Service: Nursing Author [...] notify nurse if she experiences pain. Normal [facility] NURSING PROG HNO ID: [id number] Author: WINIFRED HILLS RN Service: ? Author Type: Registered Nurse Type: Nursing Progress Note Filed: 07/07/2024 12:15 Note Text: Transfer Note: PATIENT NAME: Mel Castillo Patient Location: [place] [id number] Room: [place] [address] Patient transferred into room/unit H60-31 in stable condition. Actions taken: Team notified. Patient belongings with patient. Pt oriented to the floor policy and fall prevention protocol. Call light within reach. Normal [facility] Nursing Noteon 07-07-2024 Nursing Note Report called to [facility]. Normal [facility] Progress Noteon 07-07-2024 Progress Note Nutrition rescreen completed. Chart reviewed. Patient to be monitored and followed by the diet r and d lab technician. Normal [facility] Renal function 2000 panelon 07-07-2024 Albumin [Mass/Vol] 3.7 g/dL Low 3.9-4.9 [facility] Comment on above: Order Comment: Speci men Type: BLOOD SPECIMEN Ordering Facility: [facility] Address: [address] [place] [address] Performed By: #### 2 4362-6 #### [facility] CLIA [id number] [address] [place] [address] [place] Anion gap [Moles/Vol] 12 mmol/L Normal 8-15 [facility] Comment on above: Order Comment: Speci men Type: BLOOD SPECIMEN Ordering Facility: [facility] Address: [address] [place] [address] Performed By: #### 2 4362-6 #### [facility] CLIA [id number] [address] [place] [address] [place] Calcium [Mass/Vol] 9.2 mg/dL Normal 8.5-10.2 [facility] Comment on above: Order Comment: Speci men Type: BLOOD SPECIMEN Ordering Facility: [facility] Address: [address] [place] [address] Performed By: #### 2 4362-6 #### [facility] CLIA [id number] [address] [place] [address] [place] Chloride [Moles/Vol] 107 mmol/L Normal 98-107 [facility] Comment on above: Order Comment: Speci men Type: BLOOD SPECIMEN Ordering Facility: [facility] Address: [address] [place] [address] Performed By: #### 2 4362-6 #### [facility] CLIA [id number] [address] [place] [address] [place] CO2 [Moles/Vol] 20 mmol/L Low 22-30 [facility] Comment on above: Order Comment: Speci men Type: BLOOD SPECIMEN Ordering Facility: [facility] Address: [address] [place], [place] [id number] Performed By: #### 2 4362-6 #### [facility] CLIA [id number] [address] [place] [address] [place] Creatinine [Mass/Vol] 0.82 mg/dL Normal 0.58-0.96 [facility] Comment on above: Order Comment: Speci men Type: BLOOD SPECIMEN Ordering Facility: [facility] Address: [address] [place] [address] Performed By: #### 2 4362-6 #### [facility] CLIA [id number] [address] [place] [address] [place] Creatinine and Glomerular filtration rate.predicted panel (S/P/Bld) 71 mL/min/1.73m??? Normal >=60 [facility] Comment on above: Order Comment: Rhina mason Type: BLOOD SPECIMEN Ordering Facility: [facility] Address: [address] [place] [address] Result Comment: Isa mated Glomerular Filtration Rate [...] GFR. Performed By: #### 2 4362-6 #### [facility] CLIA [id number] [address] [place] [address] [place] Glucose [Mass/Vol] 106 mg/dL High 74-99 [facility] Comment on above: Order Comment: Rhina mason Type: BLOOD SPECIMEN Ordering Facility: [facility] Address: [address] [place] [address] Result Comment: The [place] [employer] (ADA) [...] 1). Performed By: #### 2 4362-6 #### [facility] CLIA [id number] [address] [place], [place] [id number] [place] Phosphate [Mass/Vol] 3.0 mg/dL Normal 2.7-4.8 [facility] Comment on above: Order Comment: Speci men Type: BLOOD SPECIMEN Ordering Facility: [facility] Address: [address] [place] [address] Performed By: #### 2 4362-6 #### [facility] CLIA [id number] [address] [place] [address] [place] Potassium [Moles/Vol] 4.3 mmol/L Normal 3.7-5.1 [facility] Comment on above: Order Comment: Speci men Type: BLOOD SPECIMEN Ordering Facility: [facility] Address: [address] [place] [address] Performed By: #### 2 4362-6 #### [facility] CLIA [id number] [address] [place] [address] [place] Sodium [Moles/Vol] 139 mmol/L Normal 136-144 [facility] Comment on above: Order Comment: Speci men Type: BLOOD SPECIMEN Ordering Facility: [facility] Address: [address] [place] [address] Performed By: #### 2 4362-6 #### [facility] CLIA [id number] [address] [place] [address] [place] Urea nitrogen [Mass/Vol] 16 mg/dL Normal 7-21 [facility] Comment on above: Order Comment: Speci men Type: BLOOD SPECIMEN Ordering Facility: [facility] Address: [address] [place] [address] Performed By: #### 2 4362-6 #### [facility] CLIA [id number] [address] [place], [place] [address] [place] [id number] 07-06-[id number] [facility] BASIC METABOLIC PANELon 12-2 0-2023 Anion gap [Moles/Vol] 9 mmol/L Normal 3-13 [facility] Comment on above: Performed By: #### L AB15 ####Drapery Counselor: VELMA VALADEZ ([phone])[facility] [place] [address] Calcium [Mass/Vol] 8.9 mg/dL Normal 8.8-10.0 [facility] Comment on above: Performed By: #### L AB15 ####Drapery Counselor: VELMA VALADEZ ([phone])[facility] [place] [address] Chloride [Moles/Vol] 113 mmol/L High 98-107 [facility] Comment on above: Performed By: #### L AB15 ####Drapery Counselor: VELMA VALADEZ ([phone])[facility] [place] [address] CO2 [Moles/Vol] 18 mmol/L Low 23-31 [facility] Comment on above: Performed By: #### L AB15 ####Drapery Counselor: VELMA VALADEZ ([phone])[facility] ([facility])[address] [place] [address] Creatinine [Mass/Vol] 0.86 mg/dL Normal 0.57-1.11 [facility] Comment on above: Performed By: #### L AB15 ####Drapery Counselor: VELMA VALADEZ ([phone])[facility] ([facility])[address] [place] [address] GLOMERULAR FILTRATION RATE ML/MIN/1.73 SQ M.PREDICTED 66.7 mL/min/1.73m*2 Normal >60.0 [facility] Comment on above: Result Comment: Calc ulation based on the Chronic Kidney Disease Epidemiology Collaboration (CKD-EPI) equation refit without adjustment for race Performed By: #### L AB15 ####Drapery Counselor: VELMA VALADEZ ([phone])[facility] [place] [address] Glucose [Mass/Vol] 74 mg/dL Low 82-115 [facility] Comment on above: Performed By: #### L AB15 ####Drapery Counselor: VELMA VALADEZ ([phone])[facility])[address] [place] [address] Potassium [Moles/Vol] 4.5 mmol/L Normal 3.5-5.1 [facility] Comment on above: Result Comment: [facility] potassium values may be up to 0.5 mmol/L lower than serum values. Performed By: #### L AB15 ####Drapery Counselor: VELMA VALADEZ ([phone])[facility] ([facility])[address] [place] [address] Sodium [Moles/Vol] 140 mmol/L Normal 136-145 [facility] Comment on above: Performed By: #### L AB15 ####Drapery Counselor: VELMA VALADEZ ([phone])[facility] ([facility])[address] [place] [address] Urea nitrogen [Mass/Vol] 16 mg/dL Normal 9-23 [facility] Comment on above: Performed By: #### L AB15 ####Drapery Counselor: VELMA VALADEZ ([phone])[facility])[address] [place] [address] Basic metabolic 1998 panelon 07-06-2024 Anion gap [Moles/Vol] 9 mmol/L 3 - 13 mmol/L [facility] Calcium [Mass/Vol] 8.9 mg/dL 8.8 - 10. 0 mg/dL [facility] Chloride [Moles/Vol] 113 mmol/L High 98 - 10 7 mmol/L [facility] CO2 [Moles/Vol] 18 mmol/L Low 23 - 31 mmol/L [facility] Creatinine [Mass/Vol] 0.86 mg/dL 0.57 - 1.11 mg/dL [facility] GFR/1.73 sq M.predicted (S/P/Bld) [Vol rate/Area] 66.7 mL/min - PINF [facility] Comment on above: Calculation based on the Chronic Kidney Disease Epidemiology Collaboration (CKD-EPI) equation refit without adjustment for race Glucose [Mass/Vol] 74 mg/dL Low 82 - 115 mg/dL [facility] Interpretation and review of laboratory results Abnormal [facility] Potassium [Moles/Vol] 4.5 mmol/L 3.5 - 5.1 mmol/L [facility] Comment on above: Plasma potassium chris ues may be up to 0.5 mmol/L lower than serum values. Sodium [Moles/Vol] 140 mmol/L 136 - 145 mmol/L [facility] Urea nitrogen [Mass/Vol] 16 mg/dL 9 - 23 mg/dL [facility] CBC W Auto Differential pane l (Bld)Ordered By: Daija Doran on 07-06-2024 Basophils (Bld) [#/Vol] 0 10*3/uL 0.0 - 0.2 10*3/uL [facility] Basophils/100 WBC (Bld) 0.5 % 0.0 - 2.0 % [facility] Eosinophils (Bld) [#/Vol] 0 10*3/uL 0.0 - 0.5 10*3/uL [facility] Eosinophils/100 WBC (Bld) 0.3 % 0.0 - 6.0 % [facility] Erythrocyte distribution width (RBC) [Ratio] 17.8 % High 11.5 - 15.0 % [facility] Hematocrit (Bld) [Volume fraction] 31.8 % Low 35.0 - 47.0 % [facility] Hemoglobin (Bld) [Mass/Vol] 9.7 g/dL Low 11.7 - 16.0 g/dL [facility] Immature granulocytes (Bld) [#/Vol] 0 10*3/uL NINF - 0.1 10*3/uL [facility] [employer] Immature granulocytes/100 WBC (Bld) 0.3 % 0.0 - 2.0 % [facility] Interpretation and review of laboratory results Abnormal [facility] Lymphocytes (Bld) [#/Vol] 1.2 10*3/uL 1.0 - 4.3 10*3/uL [facility] Lymphocytes/100 WBC (Bld) 18.9 % 15.0 - 45.0 % [facility] MCH (RBC) [Entitic mass] 26.4 pg 26.0 - 34.0 pg [facility] MCHC (RBC) [Mass/Vol] 30.5 % 30.5 - 36.0 % [facility] MCV (RBC) [Entitic vol] 86.4 fL 77.0 - 99.0 fL [facility] Monocytes (Bld) [#/Vol] 0.5 10*3/uL 0.0 - 0.9 10*3/uL [facility] Health Monocytes/100 WBC (Bld) 8.2 % 5.0 - 13.0 % [facility] Neutrophils (Bld) [#/Vol] 4.4 10*3/uL 1.8 - 7.5 10*3/uL [facility] Neutrophils/100 WBC (Bld) 71.8 % 38.0 - 82.0 % [facility] Nucleated RBC/100 WBC (Bld) [Ratio] 0 % [facility] Platelet mean volume (Bld) [Entitic vol] 10.9 fL 9.0 - 12.7 fL [facility] Platelets (Bld) [#/Vol] 278 10*3/uL 140 - 440 10*3/uL [facility] RBC (Bld) [#/Vol] 3.68 10*6/uL Low 3.80 - 5.2 0 10*6/uL [facility] WBC (Bld) [#/Vol] 6.1 10*3/uL 3.6 - 10.7 10*3/uL [facility] CBC WITH AUTO DIFFERENTIALon 07-06-2024 Basophils (Bld) [#/Vol] 0.0 10*3/uL Normal 0.0-0.2 [facility] Comment on above: Performed By: #### L [id number] ####Drapery Counselor: VELMA VALADEZ ([phone])[facility] ([facility])[address] [place] [address] Basophils/100 WBC (Bld) 0.5 % Normal 0.0-2.0 [facility] Comment on above: Performed By: #### L [id number] ####Drapery Counselor: VELMA VALADEZ ([phone])[facility])[address] [place] [address] Eosinophils (Bld) [#/Vol] 0.0 10*3/uL Normal 0.0-0.5 [facility] Comment on above: Performed By: #### L [id number] ####Drapery Counselor: VELMA VALADEZ ([phone])[facility])[address] [place] [address] Eosinophils/100 WBC (Bld) 0.3 % Normal 0.0-6.0 [facility] Comment on above: Performed By: #### L [id number] ####Drapery Counselor: VELMA VALADEZ ([phone])[facility])[address] [place] [address] Erythrocyte distribution width (RBC) [Ratio] 17.8 % High 11.5-15.0 [facility] Comment on above: Performed By: #### L [id number] ####Drapery Counselor: VELMA VALADEZ ([phone])[address] Hematocrit (Bld) [Volume fraction] 31.8 % Low 35.0-47.0 [facility] Comment on above: Performed By: #### L [id number] ####Drapery Counselor: VELMA VALADEZ ([phone])[address] Hemoglobin (Bld) [Mass/Vol] 9.7 g/dL Low 11.7-16.0 [facility] Comment on above: Performed By: #### L [id number] ####Drapery Counselor: VELMA VALADEZ ([phone])[facility])[address] [place] [address] IMMATURE GRANS % 0.3 % Normal 0.0-2.0 [facility] Comment on above: Performed By: #### L [id number] ####Drapery Counselor: VELMA VALADEZ ([phone])[address] IMMATURE GRANS ABSOLUTE 0.0 10*3/uL Normal <0.1 [facility] Comment on above: Performed By: #### L [id number] ####Drapery Counselor: VELMA VALADEZ ([phone])[facility] ([facility])[address] [place] [address] Lymphocytes (Bld) [#/Vol] 1.2 10*3/uL Normal 1.0-4.3 [facility] Comment on above: Performed By: #### L [id number] ####Drapery Counselor: VELMA VALADEZ ([phone])[facility])[address] [place] [address] Lymphocytes/100 WBC (Bld) 18.9 % Normal 15.0-45.0 [facility] Comment on above: Performed By: #### L [id number] ####Drapery Counselor: VELMA VALADEZ ([phone])[facility])[address] [place] [address] MCH (RBC) [Entitic mass] 26.4 pg Normal 26.0-34.0 [facility] Comment on above: Performed By: #### L [id number] ####Drapery Counselor: VELMA VALADEZ ([phone])[facility])[address] [place] [address] MCHC 30.5 % Normal 30.5-36.0 [facility] Comment on above: Performed By: #### L [id number] ####Drapery Counselor: VELMA VALADEZ ([phone])[facility])[address] [place] [address] MCV (RBC) [Entitic vol] 86.4 fL Normal 77.0-99.0 [facility] Comment on above: Performed By: #### L [id number] ####Drapery Counselor: VELMA VALADEZ ([phone])[facility])[address] [place] [address] Monocytes (Bld) [#/Vol] 0.5 10*3/uL Normal 0.0-0.9 [facility] Comment on above: Performed By: #### L [id number] ####Drapery Counselor: VELMA VALADEZ ([phone])[facility])[address] [place] [address] Monocytes/100 WBC (Bld) 8.2 % Normal 5.0-13.0 [facility] Comment on above: Performed By: #### L [id number] ####Drapery Counselor: VELMA VALADEZ ([phone])[facility] ([facility])[address] [place] [address] NEUTROPHILS ABSOLUTE 4.4 10*3/uL Normal 1.8-7.5 [facility] Comment on above: Performed By: #### L [id number] ####Drapery Counselor: VELMA VALADEZ ([phone])[facility] ([facility])[address] [place] [address] Neutrophils/100 WBC (Bld) 71.8 % Normal 38.0-82.0 [facility] Comment on above: Performed By: #### L [id number] ####Drapery Counselor: VELMA VALADEZ ([phone])[facility] ([facility])[address] [place] [address] NRBC 0.0 /100 WBCs Normal 0.0-2.0 [facility] Comment on above: Performed By: #### L [id number] ####Drapery Counselor: VELMA VALADEZ ([phone])[facility] ([facility])[address] [place] [address] Platelet mean volume (Bld) [Entitic vol] 10.9 fL Normal 9.0-12.7 [facility] Comment on above: Performed By: #### L [id number] ####Drapery Counselor: VELMA VALADEZ ([phone])[facility] ([facility])[address] [place] [address] Platelets (Bld) [#/Vol] 278 10*3/uL Normal 140-440 [facility] Comment on above: Performed By: #### L [id number] ####Drapery Counselor: VELMA VALADEZ ([phone])[facility] ([facility])[address] [place] [address] RBC (Bld) [#/Vol] 3.68 10*6/uL Low 3.80-5.20 [facility] Comment on above: Performed By: #### L [id number] ####Drapery Counselor: VELMA VALADEZ ([phone])[facility])[address] [place] [address] WBC (Bld) [#/Vol] 6.1 10*3/uL Normal 3.6-10.7 [facility] Comment on above: Performed By: #### L [id number] ####Drapery Counselor: VELMA VALADEZ ([phone])[facility] ([facility])[address] [place] [address] CNPNon 07-06-2024 CNPN Telephone (OPHTMN) MEL GUADARRAMA ([id number]) [facility] Date Time Provider Department 07/06/24 RYAN ELIZONDO During your visit today, we recorded the following information about you: Ryan Elizondo MD 07/06/2024 2:42 PM Signed TELEPHONE ENCOUNTER 07/06/2024 Patient with recent stroke and admitted to [facility] where she was noted to have elevated IOP with retinal detachment of the right eye by consult central office mechanic. 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 - wfwsmulepmc-msuwmhljj-a ilanter (TRELEGY ELLIPTA) 100-62.5-25 mcg inhalation powder [...] Status:Closed by RYAN ELIZONDO on 07/06/24 Normal [facility] Consulton 07-06-2024 Consult Normal [facility] Nursing Noteon 07-06-2024 Nursing Note This RN called Protective Services to try and locate pts lost glasses from 07/05/2024. Glasses that match the description are in lost and found. Will attempt to see if glasses are a match. Normal [facility] Progress Noteon 07-06-2024 Progress Note Normal [facility] Progress Note Normal [facility] CBC (HEMOGRAM)on 07-05-2024 Erythrocyte distribution width (RBC) [Ratio] 17.2 % High 11.5-15.0 [facility] Comment on above: Performed By: #### L [id number] ####Drapery Counselor: VELMA VALADEZ ([phone])[address] Hematocrit (Bld) [Volume fraction] 32.8 % Low 35.0-47.0 [facility] Comment on above: Performed By: #### L [id number] ####Drapery Counselor: VELMA VALADEZ ([phone])[address] Hemoglobin (Bld) [Mass/Vol] 10.6 g/dL Low 11.7-16.0 [facility] Comment on above: Performed By: #### L [id number] ####Drapery Counselor: VELMA VALADEZ ([phone])[facility])[address] [place] [address] MCH (RBC) [Entitic mass] 26.4 pg Normal 26.0-34.0 [facility] Comment on above: Performed By: #### L [id number] ####Drapery Counselor: VELMA VALADEZ ([phone])[facility] ([facility])[address] [place] [address] MCHC 32.3 % Normal 30.5-36.[address] [facility] Comment on above: Performed By: #### L [id number] ####Drapery Counselor: VELMA VALADEZ ([phone])[facility] ([facility])[address] [place] [address] MCV (RBC) [Entitic vol] 81.8 fL Normal 77.0-99.0 [facility] Comment on above: Performed By: #### L [id number] ####Drapery Counselor: VELMA VALADEZ ([phone])[facility] ([facility])[address] [place] [address] Platelet mean volume (Bld) [Entitic vol] 9.6 fL Normal 9.0-12.[address] [facility] Comment on above: Performed By: #### L [id number] ####Drapery Counselor: VELMA VALADEZ ([phone])[facility] ([facility])[address] [place] [address] Platelets (Bld) [#/Vol] 349 10*3/uL Normal 140-440 [facility] Comment on above: Performed By: #### L [id number] ####Drapery Counselor: VELMA VALADEZ ([phone])[facility] ([facility])[address] [place] [address] RBC (Bld) [#/Vol] 4.01 10*6/uL Normal 3.80-5.[address] [facility] Comment on above: Performed By: #### L [id number] ####Drapery Counselor: VELMA VALADEZ ([phone])[facility] ([facility])[address] [place] [address] WBC (Bld) [#/Vol] 5.5 10*3/uL Normal 3.6-10.7 [facility] Comment on above: Performed By: #### L [id number] ####Drapery Counselor: VELMA VALADEZ ([phone])[facility] ([facility])[address] [place] [address] CBC panel Auto (Bld)on 07-05 Erythrocyte distribution width (RBC) [Ratio] 17.2 % High 11.5 - 15.0 % [facility] Hematocrit (Bld) [Volume fraction] 32.8 % Low 35.0 - 47.0 % [facility] Hemoglobin (Bld) [Mass/Vol] 10.6 g/dL Low 11.7 - 16.0 g/dL [facility] Interpretation and review of laboratory results Abnormal [facility] MCH (RBC) [Entitic mass] 26.4 pg 26.0 - 34.0 pg [facility] MCHC (RBC) [Mass/Vol] 32.3 % 30.5 - 36.0 % [facility] MCV (RBC) [Entitic vol] 81.8 fL 77.0 - 99.0 fL [facility] Platelet mean volume (Bld) [Entitic vol] 9.6 fL 9.0 - 12.7 fL [facility] Platelets (Bld) [#/Vol] 349 10*3/uL 140 - 440 10*3/uL [facility] RBC (Bld) [#/Vol] 4.01 10*6/uL 3.80 - 5.2 0 10*6/uL [facility] WBC (Bld) [#/Vol] 5.5 10*3/uL 3.6 - 10.7 10*3/uL [facility] COMPREHENSIVE METABOLIC PANE Gilberto 07-05-2024 Albumin [Mass/Vol] 3.6 g/dL Normal 3.4-4.8 [facility] Comment on above: Performed By: #### L [id number], [id number] ####Drapery Counselor: VELMA VALADEZ ([phone])[facility] ([facility])[address] [place] [address] ALP [Catalytic activity/Vol] 94 U/L Normal 40-150 [facility] Comment on above: Performed By: #### L [id number], LAB17 ####Drapery Counselor: VELMA VALADEZ ([phone])[facility] [place] [address] ALT [Catalytic activity/Vol] 23 U/L Normal <30 [facility] Comment on above: Performed By: #### L [id number], LAB17 ####Drapery Counselor: VELMA VALADEZ ([phone])[facility] ([facility])[address] [place] [address] Anion gap [Moles/Vol] 10 mmol/L Normal 3-13 [facility] Comment on above: Performed By: #### L [id number], [id number] ####Drapery Counselor: VELMA VALADEZ ([phone])[facility] ([facility])[address] [place] [address] AST [Catalytic activity/Vol] 26 U/L Normal <34 [facility] Comment on above: Performed By: #### L [id number], [id number] ####Drapery Counselor: VELMA VALADEZ ([phone])[facility] ([facility])[address] [place] [address] Bilirubin [Mass/Vol] 0.7 mg/dL Normal <1.2 [facility] Comment on above: Performed By: #### L [id number], LAB17 ####Drapery Counselor: VELMA VALADEZ ([phone])[facility] ([facility])[address] [place] [address] Calcium [Mass/Vol] 9.2 mg/dL Normal 8.8-10.0 [facility] Comment on above: Performed By: #### L [id number], LAB17 ####Drapery Counselor: VELMA VALADEZ ([phone])[facility] ([facility])[address] [place] [address] [place] Chloride [Moles/Vol] 107 mmol/L Normal 98-107 [facility] Comment on above: Performed By: #### L [id number], [id number] ####Drapery Counselor: VELMA VALADEZ ([phone])[facility] ([facility])[address] [place] [address] [place] CO2 [Moles/Vol] 22 mmol/L Low 23-31 [facility] Comment on above: Performed By: #### L [id number], [id number] ####Drapery Counselor: VELMA VALADEZ ([phone])[facility] ([facility])[address] [place] [address] Creatinine [Mass/Vol] 0.82 mg/dL Normal 0.57-1.11 [facility] Comment on above: Performed By: #### L [id number], [id number] ####Drapery Counselor: VELMA VALADEZ ([phone])[facility])[address] [place] [address] GLOMERULAR FILTRATION RATE ML/MIN/1.73 SQ M.PREDICTED 70.6 mL/min/1.73m*2 Normal >60.0 [facility] Comment on above: Result Comment: Calc ulation based on the Chronic Kidney Disease Epidemiology Collaboration (CKD-EPI) equation refit without adjustment for race Performed By: #### L [id number], [id number] ####Drapery Counselor: VELMA VALADEZ ([phone])[facility] ([facility])[address] [place] [address] Glucose [Mass/Vol] 118 mg/dL High 82-115 [facility] Comment on above: Performed By: #### L [id number], LAB17 ####Drapery Counselor: VELMA VALADEZ ([phone])[facility] ([facility])[address] [place] [address] [place] Potassium [Moles/Vol] 4.3 mmol/L Normal 3.5-5.1 [facility] Comment on above: Result Comment: [facility] potassium values may be up to 0.5 mmol/L lower than serum values. Performed By: #### L [id number], LAB17 ####Drapery Counselor: VELMA VALADEZ ([phone])[facility])[address] [place] [address] Protein [Mass/Vol] 7.0 g/dL Normal 6.4-8.3 [facility] Comment on above: Performed By: #### L [id number], LAB17 ####Drapery Counselor: VELMA VALADEZ ([phone])[address] Sodium [Moles/Vol] 139 mmol/L Normal 136-145 [facility] Comment on above: Performed By: #### L [id number], LAB17 ####Drapery Counselor: VELMA VALADEZ ([phone])[address] Urea nitrogen [Mass/Vol] 13 mg/dL Normal 9-23 [facility] Comment on above: Performed By: #### L [id number], LAB17 ####Drapery Counselor: VELMA VALADEZ ([phone])[address] HEAD NECK ANGIO W AND WO IV CONTRASTon 07-05-2024 CT HEAD NECK ANGIO W AND WO IV CONTRAST Normal [facility] CT HEAD WO IV CONTRASTon CT HEAD WO IV CONTRAST Normal [facility] CT Head WO contraston 2023 Patient Name: MEL CARVER RD : 1940 [facility]#: [id number] Exam Date/Time: 07/05/2024 04:36 Procedure: CT HEAD [...] the cervica (more content not included)... [facility] RADIOLOGY SYSTEM [facility], Cirilo Khalil MD - 07/05/2024 Patient Name: MEL POP : 1940 [facility]#: [id number] Exam Date/Time: 07/05/2024 04:36 Procedure: CT HEAD [...] acute consolidative process (more content not included)... [facility] CT PERFUSIONon 07-05-2024 CT PERFUSION Normal [facility] CTA Head vessels and Neck ve ssels WO and W contrast Cheryl 07-05-2024 Patient Name: MEL CARVER RD : 1940 [facility]#: [id number] Exam Date/Time: 07/05/2024 04:36 Procedure: CT HEAD [...] degenerative chopra (more content not included)... [facility] RADI[facility] Cory, Cirilo Khalil MD - 07/05/2024 Patient Name: MEL POP : 1940 [facility]#: [id number] Exam Date/Time: 07/05/2024 04:36 Procedure: CT HEAD [...] no acute conso (more content not included)... [facility] Comprehensive metabolic 1998 panelon 07-05-2024 Albumin [Mass/Vol] 3.6 g/dL 3.4 - 4.8 g/dL [facility] ALP [Catalytic activity/Vol] 94 U/L 40 - 150 U/L [facility] ALT [Catalytic activity/Vol] 23 U/L NINF - 30 U/L [facility] Anion gap [Moles/Vol] 10 mmol/L 3 - 13 mmol/L [facility] AST [Catalytic activity/Vol] 26 U/L NINF - 34 U/L [facility] Bilirubin [Mass/Vol] 0.7 mg/dL NINF - 1.2 mg/dL [facility] Calcium [Mass/Vol] 9.2 mg/dL 8.8 - 10. 0 mg/dL [facility] Chloride [Moles/Vol] 107 mmol/L 98 - 10 7 mmol/L [facility] CO2 [Moles/Vol] 22 mmol/L Low 23 - 31 mmol/L [facility] Creatinine [Mass/Vol] 0.82 mg/dL 0.57 - 1.11 mg/dL [facility] GFR/1.73 sq M.predicted (S/P/Bld) [Vol rate/Area] 70.6 mL/min - PINF [facility] Comment on above: Calculation based on the Chronic Kidney Disease Epidemiology Collaboration (CKD-EPI) equation refit without adjustment for race Glucose [Mass/Vol] 118 mg/dL High 82 - 115 mg/dL [facility] Interpretation and review of laboratory results Abnormal [facility] Potassium [Moles/Vol] 4.3 mmol/L 3.5 - 5.1 mmol/L [facility] Comment on above: Plasma potassium chris ues may be up to 0.5 mmol/L lower than serum values. Protein [Mass/Vol] 7 g/dL 6.4 - 8.3 g/dL [facility] Sodium [Moles/Vol] 139 mmol/L 136 - 145 mmol/L [facility] Urea nitrogen [Mass/Vol] 13 mg/dL 9 - 23 mg/dL [facility] Consulton 07-05-2024 Consult Normal [facility] Consult Normal [facility] Consult Normal [facility] Consult Normal [facility] ECG 12-LEADon 07-05-2024 ECG 12-LEAD IMPRESSION: Atrial fibrillation Electronically Signed On 07-05-2024 12:39:21 EST by Jhonatan Hernandez [facility] ED Nursing Noteon 07-05-[address] Carlson at bedside. [facility] ED Nursing Note Provider notified of patient request for pain meds. [facility] ED Nursing Note Dr. Carlson at bedside [facility] ED Nursing Note Patient is returning back to room 32 at this time with Jose, Medic. [facility] ED Nursing Note Pt emergently going to eye clinic. Pt being transported in wheelchair with trauma float Arin RN and Maritza RN Pt being transported on zoll monitor and acls kit. [facility] ED Nursing Note Ophthalmology at bedside [facility] ED Nursing Note Report to Maritza FRAGA [facility] ED Provider Noteon ED Provider Note [facility] HEMOGLOBIN A1Con 07-05-2024 Glucose [Mass/Vol] 120 mg/dL [facility] Comment on above: Result Comment: BUBBA Garcia COMMENTS:HbA1c values of 5.7-6.4 percent indicate an increased risk for developing diabetes mellitus. HbA1c values greater than or equal to 6.5 percent are diagnostic of diabetes mellitus. For diagnosis of diabetes in individuals without unequivocal hyperglycemia, results should be confirmed by repeat testing. Performed By: #### L [id number] ####Drapery Counselor: VELMA VALADEZ ([phone])[facility])[address] [place] [address] HEMOGLOBIN A1C 5.8 %HbA1C High <5.7 [facility] Comment on above: Result Comment: Norm al less than 5.7%Prediabetes 5.7% to 6.4%Diabetes 6.5% or higher--HgbA1C levels may not be accurate in patients who have renal disease, received recent blood transfusions, are anemic, or who have dyshemoglobinemia. Performed By: #### L [id number] ####Drapery Counselor: VELMA VALADEZ ([phone])[facility])[address] [place] [address] [place] HIGH SENSITIVITY TROPONIN, S ERIAL BASELINEon 07-05-2024 TROPONIN HIGH SENSITIVITY BASELINE 14 ng/L Normal <=14 [facility] Comment on above: Performed By: #### L [id number] ####Drapery Counselor: VELMA VALADEZ ([phone])[facility])[address] [place] [address] HIGH SENSITIVITY TROPONIN, S ERIAL, SECOND TESTon 07-05-2024 TROPONIN HS DELTA, BASELINE TO SECOND -5 ng/L Normal <=2 [facility] Comment on above: [...] further clinical guidance. Performed By: #### L [id number], LAB17 ####Drapery Counselor: VELMA VALADEZ ([phone])[facility])[address] [place] [address] TROPONIN HS, SERIAL REFLEX, TEST TWO 9 ng/L Normal <=14 [facility] Comment on above: Performed By: #### L [id number], LAB17 ####Drapery Counselor: VELMA VALADEZ ([phone])[facility])[address] [place] [address] Laboratory - Chemistry and C hemistry - challengeon 07-05-2024 Average glucose Estimated from glycated hemoglobin (Bld) [Mass/Vol] 120 mg/dL [facility] Anion gap (Bld) [Moles/Vol] 8 mmol/L 3.00 - 13.00 [facility] Calcium.ionized (Bld) [Moles/Vol] 4.5 mg/dl 4.30 - 5.20 mg/dl [facility] Comment on above: Performed by [employer] CLIA ID:[id number] [place], [place] Device: [id number] Focuser ID: [id number] Chloride [Moles/Vol] 108 mmol/L 98 - 11 4 mmol/L [facility] [email or web address] CO2 [Moles/Vol] 23 mmol/L 21 - 29 mmol/L [facility] Creatinine [Mass/Vol] 0.9 mg/dL 0.6 - 1.3 mg/dL [facility] GFR/1.73 sq M.predicted CKD-EPI (S/P/Bld) [Vol rate/Area] 63.2 [facility] Comment on above: KDIGO guidelines pro [...] 104 mg/dL High 70 - 100 mg/dL [facility] [email or web address] Potassium [Moles/Vol] 4.5 mmol/L 3.4 - 5.1 mmol/L [facility] [employer] Sodium [Moles/Vol] 139 mmol/L 133 - 145 mmol/L [facility] [employer] Urea (Bld) [Mass/Vol] 14 mg/dL 4 - 22 mg/dL [facility] Glucose [Mass/Vol] 104 mg/dL High 70 - 100 mg/dL [facility] Laboratory - Coagulationon 1 09-05-2023 aPTT Coag (PPP) [Time] 30.4 s 20.0 - 30.5 s [facility] INR Coag (PPP) [Relative time] 1 {INR} 0.9 - 1.1 [facility] Comment on above: Recommended Anticoag ulant [...] 11.7 s 9.0 - 1 2.0 s [facility] Laboratory - Hematology and Cell countson 07-05-2024 HbA1c (Bld) [Mass fraction] 5.8 % High NINF [facility] Comment on above: Normal less than [...] MD Electronically Signed Date/Time: 07/05/2024 12:13 PM [facility] [employer] RADIOLOGY SYSTEM Patient Name: MEL CARVER RD : 1940 [id number] Exam Date/Time: 07/05/2024 11:45 Procedure: MR BRAIN [...] is artifact within the right globe. [facility] RAD[facility] Ming Fry MD - 07/05/2024 Patient Name: MEL POP : 1940 [facility]#: [id number] Exam Date/Time: 07/05/2024 11:45 Procedure: MR BRAIN [...] Electronically Signed Date/Time: 07/05/2024 12:13 PM EST [facility] [email or web address] Radiology Study observation (narrative) [facility] MR Brain WO contrastOrdered By: Ming Fry on 07-05-2024 [employer] Work Phone: No Panel Informationon 07-05 Heart Rate 59 bpm [employer] P [place] 0 degrees [facility] [email or web address] [place] Interval 0 ms [facility] QRS [place] 37 degrees [facility] QRSD Interval 98 ms [facility] Healt h QT Interval 423 ms [facility] QTC Interval 418 ms [facility] T Wave [place] 29 degrees [facility] Atrial fibrillation Electronically Signed On 07-05-2024 12:39:21 EST by Jhonatan Hernandez CV Jhonatan Abdi MD - 07/05/2024 IMPRESSION: Atrial fibrillation Electronically Signed On 07-05-2024 12:39:21 EST by Jhonatan Hernandez [facility] Interpretation and review of laboratory results Abnormal [facility] HbA1c values of 5.7- 6.4 percent indicate an increased risk for developing diabetes mellitus. HbA1c values greater than or equal to 6.5 percent are diagnostic of diabetes mellitus. For diagnosis of diabetes in individuals without unequivocal hyperglycemia, results should be confirmed by repeat testing. [facility] Troponin HS Delta, Baseline to Second -5 ng/L NINF - 2 ng/L [facility] Comment on above: This specimen was [...] Second 9 ng/L NINF - 14 ng/L [facility] 1. No acute intracranial hemorrhage or [...] Signed Date/Time: 07/05/2024 5:03 AM EST [facility] RADIOLOGY [facility] Patient Name: MEL CARVER RD : 1940 [facility]#: [id number] Exam Date/Time: 07/05/2024 04:36 Procedure: CT PERFUSION [...] cervical spine. (more content not included)... [facility] RADI[facility], Cirilo Khalil MD - 07/05/2024 Patient Name: MEL POP : 1940 [facility]#: [id number] Exam Date/Time: 07/05/2024 04:36 Procedure: CT PERFUSION [...] process or suspici (more content not included)... [facility] Interpretation and review of laboratory results Normal [facility] Troponin HS, Serial Baseline 14 ng/L NINF - 14 ng/L [facility] Interpretation and review of laboratory results Normal [facility] Interpretation and review of laboratory results Abnormal [facility] Performed by: [employer] [facility], [address] [place] [address] CLIA ID: [id number] [facility] Radiology Study observation (narrative) [facility] Interpretation and review of laboratory results Abnormal [facility] Performed by: [facility], [address] [place] [address] CLIA ID: [id number] [facility] No Panel InformationOrdered By: Cirilo Ray on 07-05-2024 [facility] [email or web address] Work Phone: PROTIME AND APTTon aPTT Coag (Bld) [Time] 30.4 s Normal 20.0-30.5 [facility] Comment on above: Performed By: #### L [id number] ####Drapery Counselor: VELMA VALADEZ ([phone])[facility])[address] [place] [address] INR Coag (PPP) [Relative time] 1.0 {INR} Normal 0.9-1.1 [facility] Comment on above: [...] prevent Myocardial Infarction Performed By: #### L [id number] ####Drapery Counselor: VELMA VALADEZ ([phone])[facility])[address] [place] [address] PT Coag (PPP) [Time] 11.7 s Normal 9.0-12.0 [facility] Comment on above: Performed By: #### L [id number] ####Drapery Counselor: VELMA VALADEZ ([phone])[facility])[address] [place] [address] Progress Noteon 07-05-2024 Progress Note Normal [facility] CBC panel Auto (Bld)on 07-02 Erythrocyte distribution width (RBC) [Ratio] 16.9 % High 11.5 - 15.0 % [facility] Hematocrit (Bld) [Volume fraction] 29.6 % Low 36.0 - 46.0 % [facility] Hemoglobin (Bld) [Mass/Vol] 9.3 g/dL Low 11.5 - 15.5 g/dL [facility] Interpretation and review of laboratory results Abnormal [facility] MCH (RBC) [Entitic mass] 26.7 pg 26.0 - 34.0 pg [facility] MCHC (RBC) [Mass/Vol] 31.4 g/dL 30.5 - 36.0 g/dL [facility] MCV (RBC) [Entitic vol] 85.1 fL 80.0 - 100.0 fL [facility] Nucleated RBC (Bld) [#/Vol] NINF [facility] Platelet mean volume (Bld) [Entitic vol] 10.2 fL 9.0 - 12.7 fL [facility] Platelets (Bld) [#/Vol] 324 10*3/uL [facility] RBC (Bld) [#/Vol] 3.48 10*6/uL Low 3.90 - 5.2 0 m/uL [facility] WBC (Bld) [#/Vol] 5.12 10*3/uL [facility] Erythrocyte distribution width (RBC) [Ratio] 16.9 % High 11.5-15.0 [facility] Comment on above: Order Comment: Speci men Type: BLOOD SPECIMENOrdering Facility: [facility] Address: [address] [place] [address] Performed By: #### 5 8410-2 ####[facility] LABORATORYCLIA [id number] [place] [address] [place] Hematocrit (Bld) [Volume fraction] 29.6 % Low 36.0-46.0 [facility] Comment on above: Order Comment: Speci men Type: BLOOD SPECIMENOrdering Facility: [facility] Address: [address] [place] [address] Performed By: #### 5 8410-2 ####[facility] LABORATORYCLIA [id number] [place] [address] [place] Hemoglobin (Bld) [Mass/Vol] 9.3 g/dL Low 11.5-15.5 [facility] Comment on above: Order Comment: Speci men Type: BLOOD SPECIMENOrdering Facility: [facility] Address: [address] [place] [address] Performed By: #### 5 8410-2 ####[facility]OR[facility] LABORATORYCLIA [id number] [address] STATES [facility] MCH (RBC) [Entitic mass] 26.7 pg Normal 26.0-34.0 [facility] Comment on above: Order Comment: Speci men Type: BLOOD SPECIMENOrdering Facility: [facility] Address: [address] [place] [address] Performed By: #### 5 8410-2 ####[facility]OR[facility] LABORATORYCLIA [id number] [address] MCHC (RBC) [Mass/Vol] 31.4 g/dL Normal 30.5-36.0 [facility] Comment on above: Order Comment: Speci men Type: BLOOD SPECIMENOrdering Facility: [facility] Address: [address] [place] [address] Performed By: #### 5 8410-2 ####[facility] LABORATORYCLIA [id number] [address] MCV (RBC) [Entitic vol] 85.1 fL Normal 80.0-100.0 [facility] Comment on above: Order Comment: Speci men Type: BLOOD SPECIMENOrdering Facility: [facility] Address: [address] [place] [address] Performed By: #### 5 8410-2 ####[facility] LABORATORYCLIA [id number] [address] Nucleated RBC (Bld) [#/Vol] 10*3/uL Normal <0.01 [facility] Comment on above: Order Comment: Speci men Type: BLOOD SPECIMENOrdering Facility: [facility] Address: [address] [place] [address] Performed By: #### 5 8410-2 ####[facility] LABORATORYCLIA [id number] [address] Platelet mean volume (Bld) [Entitic vol] 10.2 fL Normal 9.0-12.7 [facility] Comment on above: Order Comment: Speci men Type: BLOOD SPECIMENOrdering Facility: [facility] Address: [address] [place] [address] Performed By: #### 5 8410-2 ####[facility] LABORATORYCLIA [id number] [address] Platelets (Bld) [#/Vol] 324 10*3/uL Normal 150-400 [facility] Comment on above: Order Comment: Speci men Type: BLOOD SPECIMENOrdering Facility: [facility] Address: [address] [place] [address] Performed By: #### 5 8410-2 ####MOR[facility] LABORATORYCLIA [id number] [address] [place] RBC (Bld) [#/Vol] 3.48 10*6/uL Low 3.90-5.20 [facility] Comment on above: Order Comment: Speci men Type: BLOOD SPECIMENOrdering Facility: [facility] Address: [address] [place] [address] Performed By: #### 5 8410-2 ####MOR[facility] LABORATORYCLIA [id number] [address] STATES OF [facility] WBC (Bld) [#/Vol] 5.12 10*3/uL Normal 3.70-11.00 [facility] Comment on above: Order Comment: Speci men Type: BLOOD SPECIMENOrdering Facility: [facility] Address: [address] [place] [address] Performed By: #### 5 8410-2 ####MORGAN LABORATORYCLIA [id number] [address] [place] CBC panel Auto (Bld)on 06-28 Erythrocyte distribution width (RBC) [Ratio] 16.6 % High 11.5 - 15.0 % [facility] Hematocrit (Bld) [Volume fraction] 28.8 % Low 36.0 - 46.0 % [facility] Hemoglobin (Bld) [Mass/Vol] 9.0 g/dL Low 11.5 - 15.5 g/dL [facility] Interpretation and review of laboratory results Abnormal [facility] MCH (RBC) [Entitic mass] 26.8 pg 26.0 - 34.0 pg [facility] MCHC (RBC) [Mass/Vol] 31.3 g/dL 30.5 - 36.0 g/dL [facility] MCV (RBC) [Entitic vol] 85.7 fL 80.0 - 100.0 fL [facility] Nucleated RBC (Bld) [#/Vol] NINF [facility] Platelet mean volume (Bld) [Entitic vol] 10.5 fL 9.0 - 12.7 fL [facility] Platelets (Bld) [#/Vol] 316 10*3/uL [facility] RBC (Bld) [#/Vol] 3.36 10*6/uL Low 3.90 - 5.2 0 m/uL [facility] WBC (Bld) [#/Vol] 5.27 10*3/uL [facility] Erythrocyte distribution width (RBC) [Ratio] 16.6 % High 11.5-15.0 [facility] Comment on above: Order Comment: Speci isabella Type: BLOOD SPECIMEN [facility] Address: [address] [place] [address] Performed By: #### 2 276-4 #### [facility] CLIA [id number] [address] [place] [address] [place] Hematocrit (Bld) [Volume fraction] 28.8 % Low 36.0-46.0 [facility] Comment on above: Order Comment: Samiri isabella Type: BLOOD SPECIMEN Ordering Facility: [facility] Address: [address] [place] [address] Performed By: #### 2 276-4 #### [facility] CLIA [id number] [address] [place] [address] [place] Hemoglobin (Bld) [Mass/Vol] 9.0 g/dL Low 11.5-15.5 [facility] Comment on above: Order Comment: Samiri men Type: BLOOD SPECIMEN Ordering Facility: [facility] Address: [address] [place] [address] Performed By: #### 2 276-4 #### [facility] CLIA [id number] [address] [place] [address] [place] MCH (RBC) [Entitic mass] 26.8 pg Normal 26.0-34.0 [facility] Comment on above: Order Comment: Speci men Type: BLOOD SPECIMEN Ordering Facility: [facility] Address: [address] [place] [address] Performed By: #### 2 276-4 #### [facility] CLIA [id number] [address] [place] [address] [place] MCHC (RBC) [Mass/Vol] 31.3 g/dL Normal 30.5-36.0 [facility] Comment on above: Order Comment: Speci men Type: BLOOD SPECIMEN Ordering Facility: [facility] Address: [address] [place] [address] Performed By: #### 2 276-4 #### [facility] CLIA [id number] [address] [place] [address] [place] MCV (RBC) [Entitic vol] 85.7 fL Normal 80.0-100.0 [facility] Comment on above: Order Comment: Speci men Type: BLOOD SPECIMEN Ordering Facility: [facility] Address: [address] [place] [address] Performed By: #### 2 276-4 #### [facility] [place] [id number] [address] [place] [address] [place] Nucleated RBC (Bld) [#/Vol] 10*3/uL Normal <0.01 [facility] Comment on above: Order Comment: Speci men Type: BLOOD SPECIMEN Ordering Facility: [facility] Address: [address] [place] [address] Performed By: #### 2 276-4 #### [facility] CLIA [id number] [address] [place] [address] [place] Platelet mean volume (Bld) [Entitic vol] 10.5 fL Normal 9.0-12.7 [facility] Comment on above: Order Comment: Speci men Type: BLOOD SPECIMEN Ordering Facility: [facility] Address: [address] [place] [address] Performed By: #### 2 276-4 #### [facility] CLIA [id number] [address] [place] [address] [place] Platelets (Bld) [#/Vol] 316 10*3/uL Normal 150-400 [facility] Comment on above: Order Comment: Speci men Type: BLOOD SPECIMEN Ordering Facility: [facility] Address: [address] [place] [address] Performed By: #### 2 276-4 #### [facility] CLIA [id number] [address] [place] [address] [place] RBC (Bld) [#/Vol] 3.36 10*6/uL Low 3.90-5.20 [facility] Comment on above: Order Comment: Speci men Type: BLOOD SPECIMEN Ordering Facility: [facility] Address: [address] [place] [address] Performed By: #### 2 276-4 #### [facility] CLIA [id number] [address] [place] [address] [place] WBC (Bld) [#/Vol] 5.27 10*3/uL Normal 3.70-11.00 [facility] Comment on above: Order Comment: Speci men Type: BLOOD SPECIMEN Ordering Facility: [facility] Address: [address] [place] [address] Performed By: #### 2 276-4 #### [facility] CLIA [id number] [address] [place] [address] [place] FERRITINon 06-27-2024 Ferritin [Mass/Vol] 67.5 ng/mL 14.7 - 205.1 ng/mL [facility] Ferritin SerPl-mCncon 2023 Ferritin [Mass/Vol] 67.5 ng/mL Normal 14.7-205.1 [facility] Comment on above: Order Comment: Speci men Type: BLOOD SPECIMEN [facility]: [facility] Address: [address] [place] [address] Performed By: #### 2 276-4 #### [facility] CLIA [id number] [address] [place] [address] [place] Ferritin [Mass/Vol]on 2023 Interpretation and review of laboratory results Normal [facility] Iron and Iron binding capaci ty panelon 06-27-2024 Interpretation and review of laboratory results Abnormal [facility] Iron [Mass/Vol] 30 ug/dL Low 41 - 186 ug/dL [facility] Iron binding capacity [Mass/Vol] 298 ug/dL 232 - 386 ug/dL [facility] Iron/TIBC [Molar ratio] 10.1 % Low 15.0 - 57.0 % [facility] Iron [Mass/Vol] 30 ug/dL Low 41-186 [facility] Comment on above: Order Comment: Speci men Type: BLOOD SPECIMEN Ordering Facility: [facility] Address: [address] [place] [address] Performed By: #### 2 276-4 #### [facility] CLIA [id number] [address] [place] [address] [place] Iron binding capacity [Mass/Vol] 298 ug/dL Normal 232-386 [facility] Comment on above: Order Comment: Speci men Type: BLOOD SPECIMEN Ordering Facility: [facility] Address: [address] [place] [address] Performed By: #### 2 276-4 #### [facility] CLIA [id number] [address] [place] [address] [place] Iron/TIBC [Molar ratio] 10.1 % Low 15.0-57.0 [facility] Comment on above: Order Comment: Speci men Type: BLOOD SPECIMEN Ordering Facility: [facility] Address: [address] [place] [address] Performed By: #### 2 276-4 #### [facility] CLIA [id number] [address] [place] [address] [place] CBC panel Auto (Bld)on 06-25 Erythrocyte distribution width (RBC) [Ratio] 15.9 % High 11.5 - 15.0 % [facility] Hematocrit (Bld) [Volume fraction] 28.7 % Low 36.0 - 46.0 % [facility] Hemoglobin (Bld) [Mass/Vol] 9.0 g/dL Low 11.5 - 15.5 g/dL [facility] Interpretation and review of laboratory results Abnormal [facility] MCH (RBC) [Entitic mass] 26.7 pg 26.0 - 34.0 pg [facility] MCHC (RBC) [Mass/Vol] 31.4 g/dL 30.5 - 36.0 g/dL [facility] MCV (RBC) [Entitic vol] 85.2 fL 80.0 - 100.0 fL [facility] Nucleated RBC (Bld) [#/Vol] NINF [facility] Platelet mean volume (Bld) [Entitic vol] 10.8 fL 9.0 - 12.7 fL [facility] Platelets (Bld) [#/Vol] 315 10*3/uL [facility] RBC (Bld) [#/Vol] 3.37 10*6/uL Low 3.90 - 5.2 0 m/uL [facility] WBC (Bld) [#/Vol] 4.96 10*3/uL [facility] Erythrocyte distribution width (RBC) [Ratio] 15.9 % High 11.5-15.0 [facility] Comment on above: Order Comment: Speci men Type: BLOOD SPECIMEN Ordering Facility: [facility] Address: [address] [place] [address] Performed By: #### 2 4362-6 #### [facility] CLIA [id number] [address] [place] [address] [place] Hematocrit (Bld) [Volume fraction] 28.7 % Low 36.0-46.0 [facility] Comment on above: Order Comment: Speci men Type: BLOOD SPECIMEN Ordering Facility: [facility] Address: [address] [place] [address] Performed By: #### 2 4362-6 #### [facility] CLIA [id number] [address] [place] [address] [place] Hemoglobin (Bld) [Mass/Vol] 9.0 g/dL Low 11.5-15.5 [facility] Comment on above: Order Comment: Speci men Type: BLOOD SPECIMEN Ordering Facility: [facility] Address: [address] [place] [address] Performed By: #### 2 4362-6 #### [facility] CLIA [id number] [address] [place] [address] [place] MCH (RBC) [Entitic mass] 26.7 pg Normal 26.0-34.0 [facility] Comment on above: Order Comment: Speci men Type: BLOOD SPECIMEN Ordering Facility: [facility] Address: [address] [place] [address] Performed By: #### 2 4362-6 #### [facility] CLIA [id number] [address] [place] [address] [place] MCHC (RBC) [Mass/Vol] 31.4 g/dL Normal 30.5-36.0 [facility] Comment on above: Order Comment: Speci men Type: BLOOD SPECIMEN Ordering Facility: [facility] Address: [address] [place] [address] Performed By: #### 2 4362-6 #### [facility] CLIA [id number] [address] [place] [address] [place] MCV (RBC) [Entitic vol] 85.2 fL Normal 80.0-100.0 [facility] Comment on above: Order Comment: Speci men Type: BLOOD SPECIMEN Ordering Facility: [facility] Address: [address] [place] [address] Performed By: #### 2 4362-6 #### [facility] CLIA [id number] [address] [place] [address] [place] Nucleated RBC (Bld) [#/Vol] 10*3/uL Normal <0.01 [facility] Comment on above: Order Comment: Speci men Type: BLOOD SPECIMEN Ordering Facility: [facility] Address: [address] [place] [address] Performed By: #### 2 4362-6 #### [facility] CLIA [id number] [address] [place] [address] [place] Platelet mean volume (Bld) [Entitic vol] 10.8 fL Normal 9.0-12.7 [facility] Comment on above: Order Comment: Speci men Type: BLOOD SPECIMEN Ordering Facility: [facility] Address: [address] [place] [address] Performed By: #### 2 4362-6 #### [facility] CLIA [id number] [address] [place] [address] [place] Platelets (Bld) [#/Vol] 315 10*3/uL Normal 150-400 [facility] Comment on above: Order Comment: Speci men Type: BLOOD SPECIMEN Ordering Facility: [facility] Address: [address] [place] [address] Performed By: #### 2 4362-6 #### [facility] CLIA [id number] [address] [place] [address] [place] RBC (Bld) [#/Vol] 3.37 10*6/uL Low 3.90-5.20 [facility] Comment on above: Order Comment: Speci men Type: BLOOD SPECIMEN Ordering Facility: [facility] Address: [address] [place] [address] Performed By: #### 2 4362-6 #### [facility] CLIA [id number] [address] [place] [address] [place] WBC (Bld) [#/Vol] 4.96 10*3/uL Normal 3.70-11.00 [facility] Comment on above: Order Comment: Speci men Type: BLOOD SPECIMEN Ordering Facility: [facility] Address: [address] [place] [address] Performed By: #### 2 4362-6 #### [facility] CLIA [id number] [address] [place] [address] [place] Basic metabolic 2000 panelon 06-21-2024 Anion gap [Moles/Vol] 12 mmol/L 8 - 15 mmol/L [facility] Calcium [Mass/Vol] 9.3 mg/dL 8.5 - 10. 2 mg/dL [facility] Chloride [Moles/Vol] 108 mmol/L High 98 - 10 7 mmol/L [facility] CO2 [Moles/Vol] 21 mmol/L Low 22 - 30 mmol/L [facility] Creatinine [Mass/Vol] 0.92 mg/dL 0.58 - 0.96 mg/dL [facility] GFR/1.73 sq M.predicted among non-blacks MDRD (S/P/Bld) [Vol rate/Area] 62 mL/min/{1.73_m2} - PINF [facility] Comment on above: Estimated Glomerular Filtration [...] 101 mg/dL High 74 - 99 mg/dL [facility] Comment on above: [employer] [place] [employer] [...] Interpretation and review of laboratory results Abnormal [facility] Potassium [Moles/Vol] 4.6 mmol/L 3.7 - 5.1 mmol/L [facility] Sodium [Moles/Vol] 141 mmol/L 136 - 144 mmol/L [facility] Urea nitrogen [Mass/Vol] 22 mg/dL High 7 - 21 mg/dL [facility] Anion gap [Moles/Vol] 12 mmol/L Normal 8-15 [facility] Comment on above: Order Comment: Speci men Type: BLOOD SPECIMEN Ordering Facility: [facility] Address: [address] [place] [address] Performed By: #### 2 4362-6 #### [facility] CLIA [id number] [address] [place] [address] [place] Calcium [Mass/Vol] 9.3 mg/dL Normal 8.5-10.2 [facility] Comment on above: Order Comment: Speci men Type: BLOOD SPECIMEN Ordering Facility: [facility] Address: [address] [place] [address] Performed By: #### 2 4362-6 #### [facility] CLIA [id number] [address] [place] [address] [place] Chloride [Moles/Vol] 108 mmol/L High 98-107 [facility] Comment on above: Order Comment: Speci men Type: BLOOD SPECIMEN Ordering Facility: [facility] Address: [address] [place] [address] Performed By: #### 2 4362-6 #### [facility] CLIA [id number] [address] [place] [address] [place] CO2 [Moles/Vol] 21 mmol/L Low 22-30 [facility] Comment on above: Order Comment: Speci men Type: BLOOD SPECIMEN Ordering Facility: [facility] Address: [address] [place] [address] Performed By: #### 2 4362-6 #### [facility] CLIA [id number] [address] [place] [address] [place] Creatinine [Mass/Vol] 0.92 mg/dL Normal 0.58-0.96 [facility] Comment on above: Order Comment: Rhina mason Type: BLOOD SPECIMEN Ordering Facility: [facility] Address: [address] [place] [address] Performed By: #### 2 4362-6 #### [facility] CLIA [id number] [address] [place] [address] [place] Creatinine and Glomerular filtration rate.predicted panel (S/P/Bld) 62 mL/min/1.73m??? Normal >=60 [facility] Comment on above: Order Comment: Rhina mason Type: BLOOD SPECIMEN Ordering Facility: [facility] Address: [address] [place] [address] Result Comment: Isa mated Glomerular Filtration Rate [...] GFR. Performed By: #### 2 4362-6 #### [facility] CLIA [id number] [address] [place] [address] [place] Glucose [Mass/Vol] 101 mg/dL High 74-99 [facility] Comment on above: Order Comment: Rhina mason Type: BLOOD SPECIMEN Ordering Facility: [facility] Address: [address] [place] [address] Result Comment: The [place] [employer] (ADA) [...] 1). Performed By: #### 2 4362-6 #### [facility] CLIA [id number] [address] [place] [address] [place] Potassium [Moles/Vol] 4.6 mmol/L Normal 3.7-5.1 [facility] Comment on above: Order Comment: Speci men Type: BLOOD SPECIMEN Ordering Facility: [facility] Address: [address] [place] [address] Performed By: #### 2 4362-6 #### [facility] CLIA [id number] [address] [place] [address] [place] Sodium [Moles/Vol] 141 mmol/L Normal 136-144 [facility] Comment on above: Order Comment: Samiri men Type: BLOOD SPECIMEN Ordering Facility: [facility] Address: [address] [place] [address] Performed By: #### 2 4362-6 #### [facility] CLIA [id number] [address] [place] [address] [place] Urea nitrogen [Mass/Vol] 22 mg/dL High 7-21 [facility] Comment on above: Order Comment: Speci men Type: BLOOD SPECIMEN Ordering Facility: [facility] Address: [address] [place] [address] Performed By: #### 2 4362-6 #### [facility] CLIA [id number] [address] [place] [address] [place] CBC panel Auto (Bld)on 06-21 Erythrocyte distribution width (RBC) [Ratio] 15.8 % High 11.5 - 15.0 % [facility] Hematocrit (Bld) [Volume fraction] 34.2 % Low 36.0 - 46.0 % [facility] Hemoglobin (Bld) [Mass/Vol] 10.6 g/dL Low 11.5 - 15.5 g/dL [facility] Interpretation and review of laboratory results Abnormal [facility] MCH (RBC) [Entitic mass] 26.4 pg 26.0 - 34.0 pg [facility] MCHC (RBC) [Mass/Vol] 31.0 g/dL 30.5 - 36.0 g/dL [facility] MCV (RBC) [Entitic vol] 85.3 fL 80.0 - 100.0 fL [facility] Nucleated RBC (Bld) [#/Vol] NINF [facility] Platelet mean volume (Bld) [Entitic vol] 10.7 fL 9.0 - 12.7 fL [facility] Platelets (Bld) [#/Vol] 300 10*3/uL [facility] RBC (Bld) [#/Vol] 4.01 10*6/uL 3.90 - 5.2 0 m/uL [facility] WBC (Bld) [#/Vol] 5.52 10*3/uL [facility] Erythrocyte distribution width (RBC) [Ratio] 15.8 % High 11.5-15.0 [facility] Comment on above: Order Comment: Speci men Type: BLOOD SPECIMEN Ordering Facility: [facility] Address: [address] [place] [address] Performed By: #### 2 4362-6 #### [facility] CLIA [id number] [address] [place] [address] [place] Hematocrit (Bld) [Volume fraction] 34.2 % Low 36.0-46.0 [facility] Comment on above: Order Comment: Speci men Type: BLOOD SPECIMEN Ordering Facility: [facility] Address: [address] [place] [address] Performed By: #### 2 4362-6 #### [facility] CLIA [id number] [address] [place] [address] [place] Hemoglobin (Bld) [Mass/Vol] 10.6 g/dL Low 11.5-15.5 [facility] Comment on above: Order Comment: Speci men Type: BLOOD SPECIMEN Ordering Facility: [facility] Address: [address] [place] [address] Performed By: #### 2 4362-6 #### [facility] CLIA [id number] [address] [place] [address] [place] MCH (RBC) [Entitic mass] 26.4 pg Normal 26.0-34.0 [facility] Comment on above: Order Comment: Speci men Type: BLOOD SPECIMEN Ordering Facility: [facility] Address: [address] [place] [address] Performed By: #### 2 4362-6 #### [facility] CLIA [id number] [address] [place] [address] [place] MCHC (RBC) [Mass/Vol] 31.0 g/dL Normal 30.5-36.0 [facility] Comment on above: Order Comment: Speci men Type: BLOOD SPECIMEN Ordering Facility: [facility] Address: [address] [place] [address] Performed By: #### 2 4362-6 #### [facility] CLIA [id number] [address] [place] [address] [place] MCV (RBC) [Entitic vol] 85.3 fL Normal 80.0-100.0 [facility] Comment on above: Order Comment: Speci men Type: BLOOD SPECIMEN Ordering Facility: [facility] Address: [address] [place] [address] Performed By: #### 2 4362-6 #### [facility] CLIA [id number] [address] [place] [address] [place] Nucleated RBC (Bld) [#/Vol] 10*3/uL Normal <0.01 [facility] Comment on above: Order Comment: Speci men Type: BLOOD SPECIMEN Ordering Facility: [facility] Address: [address] [place] [address] Performed By: #### 2 4362-6 #### [facility] CLIA [id number] [id number] [address] [place] Platelet mean volume (Bld) [Entitic vol] 10.7 fL Normal 9.0-12.7 [facility] Comment on above: Order Comment: Speci men Type: BLOOD SPECIMEN Ordering Facility: [facility] Address: [address] [place] [address] Performed By: #### 2 4362-6 #### [facility] CLIA [id number] [address] [place] [address] [place] Platelets (Bld) [#/Vol] 300 10*3/uL Normal 150-400 [facility] Comment on above: Order Comment: Speci men Type: BLOOD SPECIMEN Ordering Facility: [facility] Address: [address] [place] [address] Performed By: #### 2 4362-6 #### [facility] CLIA [id number] [address] [place] [address] [place] RBC (Bld) [#/Vol] 4.01 10*6/uL Normal 3.90-5.20 [facility] Comment on above: Order Comment: Speci men Type: BLOOD SPECIMEN Ordering Facility: [facility] Address: [address] [place] [address] Performed By: #### 2 4362-6 #### [facility] CLIA [id number] [address] [place] [address] [place] WBC (Bld) [#/Vol] 5.52 10*3/uL Normal 3.70-11.00 [facility] Comment on above: Order Comment: Speci men Type: BLOOD SPECIMEN Ordering Facility: [facility] Address: [address] [place] [address] Performed By: #### 2 4362-6 #### [facility] CLIA [id number] [address] [place] [address] [place] Basic metabolic 2000 panelon 06-19-2024 Anion gap [Moles/Vol] 10 mmol/L Normal 8-15 [facility] Comment on above: Order Comment: Speci men Type: BLOOD SPECIMEN Ordering Facility: [facility] Address: [address] [place] [address] Performed By: #### 2 4321-2, 52620-0, #### [facility] CLIA [id number] [address] [place] [address] [place] Calcium [Mass/Vol] 8.9 mg/dL Normal 8.5-10.2 [facility] Comment on above: Order Comment: Speci men Type: BLOOD SPECIMEN Ordering Facility: [facility] Address: [address] [place] [address] Performed By: #### 2 4321-2, 78897-4, #### [facility] CLIA [id number] [address] [place] [address] [place] Chloride [Moles/Vol] 109 mmol/L High 98-107 [facility] Comment on above: Order Comment: Speci men Type: BLOOD SPECIMEN Ordering Facility: [facility] Address: [address] [place] [address] Performed By: #### 2 1-2, 93313-9, #### [facility] CLIA [id number] [address] [place] [address] [place] CO2 [Moles/Vol] 21 mmol/L Low 22-30 [facility] Comment on above: Order Comment: Speci men Type: BLOOD SPECIMEN Ordering Facility: [facility] Address: [address] [place] [address] Performed By: #### 2 4321-2, 13848-0, #### [facility] CLIA [id number] [address] [place] [address] [place] Creatinine [Mass/Vol] 1.04 mg/dL High 0.58-0.96 [facility] Comment on above: Order Comment: Speci men Type: BLOOD SPECIMEN Ordering Facility: [facility] Address: [address] [place] [address] Performed By: #### 2 4321-2, 27385-6, #### [facility] CLIA [id number] [address] Creatinine and Glomerular filtration rate.predicted panel (S/P/Bld) 53 mL/min/1.73m??? Low >=60 [facility] Comment on above: Order Comment: Rhina mason Type: BLOOD SPECIMEN Ordering Facility: [facility] Address: [address] [place] [address] Result Comment: Isa mated Glomerular Filtration Rate [...] actual GFR. Performed By: #### 2 4321-2, 05470-2, #### [facility] CLIA [id number] [address] STATES OF [facility] Glucose [Mass/Vol] 103 mg/dL High 74-99 [facility] Comment on above: Order Comment: Rhina mason Type: BLOOD SPECIMEN Ordering Facility: [facility] Address: [address] [place] [address] Result Comment: The [place] [employer] (ADA) [...] 2016.39(Suppl 1). Performed By: #### 2 4321-2, 17141-4, #### [facility] CLIA [id number] [address] [place] Potassium [Moles/Vol] 4.8 mmol/L Normal 3.7-5.1 [facility] Comment on above: Order Comment: Speci men Type: BLOOD SPECIMEN Ordering Facility: [facility] Address: [address] [place] [address] Performed By: #### 2 4321-2, 09084-7, #### [facility] CLIA [id number] [address] [place] Sodium [Moles/Vol] 140 mmol/L Normal 136-144 [facility] Comment on above: Order Comment: Speci men Type: BLOOD SPECIMEN Ordering Facility: [facility] Address: [address] [place] [address] Performed By: #### 2 4321-2, 90242-4, #### [facility] CLIA [id number] [address] [place] Urea nitrogen [Mass/Vol] 25 mg/dL High 7-21 [facility] Comment on above: Order Comment: Speci men Type: BLOOD SPECIMEN Ordering Facility: [facility] Address: [address] [place] [address] Performed By: #### 2 4321-2, 75217-3, #### [facility] CLIA [id number] [address] [place] CBC panel Auto (Bld)on 06-19 Erythrocyte distribution width (RBC) [Ratio] 15.9 % High 11.5-15.0 [facility] Comment on above: Order Comment: Speci men Type: BLOOD SPECIMEN Ordering Facility: [facility] Address: [address] [place] [address] Performed By: #### 2 4321-2, 34870-3, #### [facility] CLIA [id number] [address] [place] Hematocrit (Bld) [Volume fraction] 30.6 % Low 36.0-46.0 [facility] Comment on above: Order Comment: Speci men Type: BLOOD SPECIMEN Ordering Facility: [facility] Address: [address] [place] [address] Performed By: #### 2 4321-2, 74912-2, #### [facility] CLIA [id number] [address] STATES OF [facility] Hemoglobin (Bld) [Mass/Vol] 9.5 g/dL Low 11.5-15.5 [facility] Comment on above: Order Comment: Speci men Type: BLOOD SPECIMEN Ordering Facility: [facility] Address: [address] [place] [address] Performed By: #### 2 4321-2, 27017-5, #### [facility] CLIA [id number] [address] STATES OF [facility] MCH (RBC) [Entitic mass] 26.5 pg Normal 26.0-34.0 [facility] Comment on above: Order Comment: Speci men Type: BLOOD SPECIMEN Ordering Facility: [facility] Address: [address] [place] [address] Performed By: #### 2 4321-2, 32240-7, #### [facility] CLIA [id number] [address] STATES OF [facility] MCHC (RBC) [Mass/Vol] 31.0 g/dL Normal 30.5-36.0 [facility] Comment on above: Order Comment: Speci men Type: BLOOD SPECIMEN Ordering Facility: [facility] Address: [address] [place] [address] Performed By: #### 2 4321-2, 86333-3, #### [facility] CLIA [id number] [address] MCV (RBC) [Entitic vol] 85.5 fL Normal 80.0-100.0 [facility] Comment on above: Order Comment: Speci men Type: BLOOD SPECIMEN Ordering Facility: [facility] Address: [address] [place] [address] Performed By: #### 2 4321-2, 87559-4, #### [facility] CLIA [id number] [address] [place] Nucleated RBC (Bld) [#/Vol] 10*3/uL Normal <0.01 [facility] Comment on above: Order Comment: Speci men Type: BLOOD SPECIMEN Ordering Facility: [facility] Address: [address] [place] [address] Performed By: #### 2 4321-2, 54476-4, #### [facility] CLIA [id number] [address] [place] Platelet mean volume (Bld) [Entitic vol] 10.4 fL Normal 9.0-12.7 [facility] Comment on above: Order Comment: Speci men Type: BLOOD SPECIMEN Ordering Facility: [facility] Address: [address] [place] [address] Performed By: #### 2 4321-2, 11559-7, #### [facility] CLIA [id number] [address] Platelets (Bld) [#/Vol] 245 10*3/uL Normal 150-400 [facility] Comment on above: Order Comment: Speci men Type: BLOOD SPECIMEN Ordering Facility: [facility] Address: [address] [place] [address] Performed By: #### 2 4321-2, 56998-3, #### [facility] CLIA [id number] [address] [place] RBC (Bld) [#/Vol] 3.58 10*6/uL Low 3.90-5.20 [facility] Comment on above: Order Comment: Speci men Type: BLOOD SPECIMEN Ordering Facility: [facility] Address: [address] [place] [address] Performed By: #### 2 4321-2, 57758-5, #### [facility] CLIA [id number] 1 [place] [address] [place] WBC (Bld) [#/Vol] 4.67 10*3/uL Normal 3.70-11.00 [facility] Comment on above: Order Comment: Speci men Type: BLOOD SPECIMEN Ordering Facility: [facility] Address: [address] [place] [address] Performed By: #### 2 4321-2, 16638-9, 07688-8 #### [facility] CLIA [id number] [address] [place] [id number] [facility] [place] CNDSon 06-19-2024 CNDS HNO ID: [id number] Author: DON EDWARDS DO Service: Hospital Medicine [...] eliquis. She was seen by therapy and [facility] facility was recommended. He slowly was improving. She was discharged to [facility] facility in stable condition. OTHER PROBLEMS/DIAGNOSIS: Principal [...] call for appointment?: Yes Jared Evans MD [phone] [place] [address] PCP Requested Referral Follow-Up Appointment When: In 2 weeks Patient/Parents to call for appointment?: Yes Hermila Padilla MD [phone] [place] [address] PCP Requested Referral Follow-Up Appointment For hydronephrosis and renal lesion When: In 2 weeks Patient/Parents to call for appointment?: Yes Mikhail Vuong Jr., MD [phone] [address] [facility] [place] [address] PCP Requested Referral Follow-Up Appointment With: neurology When: In 4 weeks Patient/Parents to call for appointment?: Yes Additional Provider to Provider Information: Treatment Team: Attending Provider: Don Edwards DO Consulting: Pratibha Logan MD Consulting: Torsten Silva MD Primary Service: BLAS ALVAREZ [facility] Critical Issues: SPECIALIST FOLLOW-UP: urology, cardiology, neurology LABS AND PROCEDURES PENDING AT DISCHARGE: No pending results. FOLLOW-UP APPOINTMENTS ALREADY SCHEDULED WITH A [facility] PROVIDER: No future appointments. Discharge Information Row Name ED to Hosp-Admission (Current) from 06/10/2024 in [place] [address] NEURO/CARD Rehab Facility [facility] ALLERGIES Allergen Reactions Percocet [Oxycodone* Itching DISCHARGE MEDICA (more content not included)... Normal [facility] Basic metabolic 2000 panelon 06-18-2024 Anion gap [Moles/Vol] 10 mmol/L Normal 8-15 [facility] Comment on above: Order Comment: Speci men Type: BLOOD SPECIMEN Ordering Facility: [facility] Address: [address] [place] [address] Performed By: #### 2 4321-2, 70738-9, #### [facility] CLIA [id number] 1 [place] [address] [place] Calcium [Mass/Vol] 8.9 mg/dL Normal 8.5-10.2 [facility] Comment on above: Order Comment: Speci men Type: BLOOD SPECIMEN Ordering Facility: [facility] Address: [address] [place] [address] Performed By: #### 2 4321-2, 14591-9, #### [facility] CLIA [id number] 1 [place] [address] [place] Chloride [Moles/Vol] 110 mmol/L High 98-107 [facility] Comment on above: Order Comment: Speci men Type: BLOOD SPECIMEN Ordering Facility: [facility] Address: [address] [place] [address] Performed By: #### 2 4321-2, 38544-4, #### [facility] CLIA [id number] 1 [place] [address] [place] CO2 [Moles/Vol] 21 mmol/L Low 22-30 [facility] Comment on above: Order Comment: Speci men Type: BLOOD SPECIMEN Ordering Facility: [facility] Address: [address] [place] [address] Performed By: #### 2 4321-2, 51180-7, #### [facility] CLIA [id number] [address] [place] Creatinine [Mass/Vol] 0.96 mg/dL Normal 0.58-0.96 [facility] Comment on above: Order Comment: Speci men Type: BLOOD SPECIMEN Ordering Facility: [facility] Address: [address] [place] [address] Performed By: #### 2 4321-2, 16475-5, #### [facility] CLIA [id number] [address] Creatinine and Glomerular filtration rate.predicted panel (S/P/Bld) 58 mL/min/1.73m??? Low >=60 [facility] Comment on above: Order Comment: Speci isabella Type: BLOOD SPECIMEN Ordering Facility: [facility] Address: [address] [place] [address] Result Comment: Sia mated Glomerular Filtration Rate [...] actual GFR. Performed By: #### 2 4321-2, 00504-5, #### [facility] CLIA [id number] [address] [place] Glucose [Mass/Vol] 112 mg/dL High 74-99 [facility] Comment on above: Order Comment: Speci men Type: BLOOD SPECIMEN Ordering Facility: [facility] Address: [address] [place] [address] Result Comment: The [place] [employer] (ADA) [...] 2016.39(Suppl 1). Performed By: #### 2 4321-2, 74600-8, #### [facility] CLIA [id number] 1 [place] [address] [place] Potassium [Moles/Vol] 4.4 mmol/L Normal 3.7-5.1 [facility] Comment on above: Order Comment: Speci men Type: BLOOD SPECIMEN Ordering Facility: [facility] Address: [address] [place] [address] Performed By: #### 2 4321-2, 10690-4, #### [facility] CLIA [id number] 1 [place] [address] [place] Sodium [Moles/Vol] 141 mmol/L Normal 136-144 [facility] Comment on above: Order Comment: Speci men Type: BLOOD SPECIMEN Ordering Facility: [facility] Address: [address] [place] [address] Performed By: #### 2 4321-2, 92933-2, #### [facility] CLIA [id number] 1 [place] [address] [place] Urea nitrogen [Mass/Vol] 22 mg/dL High 7-21 [facility] Comment on above: Order Comment: Speci men Type: BLOOD SPECIMEN Ordering Facility: [facility] Address: [address] [place] [address] Performed By: #### 2 4321-2, 71712-4, 41356-1 #### [facility] CLIA [id number] [address] CBC panel Auto (Bld)on 06-18 Erythrocyte distribution width (RBC) [Ratio] 15.9 % High 11.5-15.0 [facility] Comment on above: Order Comment: Speci men Type: BLOOD SPECIMENOrdering Facility: [facility] Address: [address] [place] [address] Performed By: #### 5 8410-2 ####[facility] [id number] [address] OF [facility] Hematocrit (Bld) [Volume fraction] 34.3 % Low 36.0-46.0 [facility] Comment on above: Order Comment: Speci men Type: BLOOD SPECIMENOrdering Facility: [facility] Address: [address] [place] [address] Performed By: #### 5 8410-2 ####[facility]IA [id number] [address] OF [facility] Hemoglobin (Bld) [Mass/Vol] 10.7 g/dL Low 11.5-15.5 [facility] Comment on above: Order Comment: Speci men Type: BLOOD SPECIMENOrdering Facility: [facility] Address: [address] [place] [address] Performed By: #### 5 8410-2 ####[facility]IA [id number] [address] STATES [facility] MCH (RBC) [Entitic mass] 26.7 pg Normal 26.0-34.0 [facility] Comment on above: Order Comment: Speci men Type: BLOOD SPECIMENOrdering Facility: [facility] Address: [address] [place] [address] Performed By: #### 5 8410-2 ####[facility]ORY[facility]IA [id number] [place] [address] [place] MCHC (RBC) [Mass/Vol] 31.2 g/dL Normal 30.5-36.0 [facility] Comment on above: Order Comment: Speci men Type: BLOOD SPECIMENOrdering Facility: [facility] Address: [address] [place] [address] Performed By: #### 5 8410-2 ####[facility]IA [id number] [address] [place] MCV (RBC) [Entitic vol] 85.5 fL Normal 80.0-100.0 [facility] Comment on above: Order Comment: Speci men Type: BLOOD SPECIMENOrdering Facility: [facility] Address: [address] [place] [address] Performed By: #### 5 8410-2 ####[facility]IA [id number] [address] Nucleated RBC (Bld) [#/Vol] 10*3/uL Normal <0.01 [facility] Comment on above: Order Comment: Speci men Type: BLOOD SPECIMENOrdering Facility: [facility] Address: [address] [place] [address] Performed By: #### 5 8410-2 ####[facility]IA [id number] [address] STATES OF [facility] Platelet mean volume (Bld) [Entitic vol] 10.0 fL Normal 9.0-12.7 [facility] Comment on above: Order Comment: Speci men Type: BLOOD SPECIMENOrdering Facility: [facility] Address: [address] [place] [address] Performed By: #### 5 8410-2 ####[facility]ORYCLIA [id number] [address] [place] Platelets (Bld) [#/Vol] 273 10*3/uL Normal 150-400 [facility] Comment on above: Order Comment: Speci men Type: BLOOD SPECIMENOrdering Facility: [facility] Address: [address] [place] [address] Performed By: #### 5 8410-2 ####[facility]ORY[facility]IA [id number] [address] [place] RBC (Bld) [#/Vol] 4.01 10*6/uL Normal 3.90-5.20 [facility] Comment on above: Order Comment: Speci men Type: BLOOD SPECIMENOrdering Facility: [facility] Address: [address] [place] [address] Performed By: #### 5 8410-2 ####[facility]ORY[facility]IA [id number] [address] STATES OF [facility] WBC (Bld) [#/Vol] 5.29 10*3/uL Normal 3.70-11.00 [facility] Comment on above: Order Comment: Speci men Type: BLOOD SPECIMENOrdering Facility: [facility] Address: [address] [place] [address] Performed By: #### 5 8410-2 ####[facility]CLIA [id number] [address] Hepatic function 2000 panelo n 06-18-2024 Albumin [Mass/Vol] 3.5 g/dL Low 3.9-4.9 [facility] Comment on above: Order Comment: Speci men Type: BLOOD SPECIMEN Ordering Facility: [facility] Address: [address] [place] [address] Performed By: #### 2 4321-2, 51057-1, #### [facility] CLIA [id number] [address] ALP [Catalytic activity/Vol] 80 U/L Normal 34-123 [facility] Comment on above: Order Comment: Speci men Type: BLOOD SPECIMEN Ordering Facility: [facility] Address: [address] [place] [address] Performed By: #### 2 4321-2, 03467-1, #### [facility] CLIA [id number] [address] ALT With P-5'-P [Catalytic activity/Vol] 16 U/L Normal 7-38 [facility] Comment on above: Order Comment: Speci men Type: BLOOD SPECIMEN Ordering Facility: [facility] Address: [address] [place] [address] Performed By: #### 2 4321-2, 85133-8, #### [facility] CLIA [id number] [address] OF [facility] AST With P-5'-P [Catalytic activity/Vol] 20 U/L Normal 13-35 [facility] Comment on above: Order Comment: Speci men Type: BLOOD SPECIMEN Ordering Facility: [facility] Address: [address] [place] [address] Performed By: #### 2 4321-2, 40511-6, #### [facility] CLIA [id number] [address] OF [facility] Bilirubin [Mass/Vol] 0.3 mg/dL Normal 0.2-1.3 [facility] Comment on above: Order Comment: Speci men Type: BLOOD SPECIMEN Ordering Facility: [facility] Address: [address] [place] [address] Performed By: #### 2 4321-2, 09973-4, #### [facility] CLIA [id number] [address] Bilirubin.conjugated [Mass/Vol] mg/dL Normal <0.2 [facility] Comment on above: Order Comment: Speci men Type: BLOOD SPECIMEN Ordering Facility: [facility] Address: [address] [place] [address] Performed By: #### 2 4321-2, 78648-2, #### [facility] CLIA [id number] [address] OF [facility] Protein [Mass/Vol] 6.0 g/dL Low 6.3-8.0 [facility] Comment on above: Order Comment: Speci men Type: BLOOD SPECIMEN Ordering Facility: [facility] Address: [address] [place], [place] [address], [place] [address] Performed By: #### 2 4321-2, 61392-2, #### [facility] CLIA [id number] [address] [place] [id number] [facility] Magnesium SerPl-mCncon 06-18 Magnesium [Mass/Vol] 1.9 mg/dL Normal 1.7-2.3 [facility] Comment on above: Order Comment: Speci men Type: BLOOD SPECIMEN Ordering Facility: [facility] Address: [address] [place] [id number] Performed By: #### 2 4321-2, 12615-9, #### [facility] CLIA [id number] [address] [place] [id number] [facility] NUTRITIONon 06-18-2024 NUTRITION HNO ID: [id number] Author: NELSON AVILA RD Service: Nutrition Therapy [...] Obtained From: Patient Weight Change: 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(s) (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 THERAPY NTon 06-18-2024 THERAPY NT HNO ID: [id number] Author: SELENA BARR, PT Service: Physical Therapy Author Type: Physical Therapist Type: Therapy (PT/OT/Speech/Resp) Filed: 06/18/2024 12:53 Note Text: Physical Therapy Treatment Summary SERVICE DATE: 06/18/2024 SERVICE TIME: 1056 to 1129 ROOM: [place] [address] PT 6 Clicks Score: 16 DISCHARGE RECOMMENDATIONS [...] Lack of coordination-other TREATMENT INTERVENTIONS Therapeutic Activity (98276) Therapeutic Activity (07139) Treatment Minutes: 25 $ Therapeutic Activity (47156) Billed Units: 2 units Timed Code Treatment [...] [facility] THER[facility] HNO ID: [id number] Author: ULI JEFFERSON OTR/[place] Service: Occupational Therapy Author Type: Occupational Therapist Type: Therapy (PT/OT/Speech/Resp) Filed: 06/18/2024 13:34 Note Text: Occupational Therapy Treatment Summary SERVICE DATE: 06/18/2024 SERVICE TIME: 1130 to 1154 ROOM: [id number] OT 6 Clicks Score: 15 DISCHARGE [...] and signs-other TREATMENT INTERVENTIONS Self Mcc Management (60645), Cognitive Training (34628 and 80432) Timed Code Treatment (minutes): 24 Skilled Treatment Time (minutes): 24 Self Mcc Management (59781) Treatment Minutes: 11 $ Self Mcc Management (23312) Billed Units: 1 unit Minimal assist with meal set-up. Cueing for physical assist with maintaining functional grasp on packaging to tear open. Pt demonstrated impaired hand-eye coordination/visual spatial awareness with bringing food to mouth. Provided further cueing and tactile awareness/sequencing to maximize ease with self feeding. Cognitive Training First 15 Minutes (78842) : 13 $ Cognitive Training First 15 Minutes (00850) Billed Units: 1 unit Facilitated completion of [facility] Mental Examination (UMS) to screen performance with [...] Occupational Therapy, Safety/Judgment, Sitting Balance to Improve [place] with ADLs/Self-Care, Cognitive Skills, Command Following, Expected [...] Speci men Type: BLOOD SPECIMEN Ordering Facility: [facility] Address: [address] [place] [address] Performed By: #### 2 4321-2, 60180-7, #### [facility] CLIA [id number] [address] [place] Hematocrit (Bld) [Volume fraction] 35.1 % Low 36.0-46.0 [facility] Comment on above: Order Comment: Speci men Type: BLOOD SPECIMEN Ordering Facility: [facility] Address: [address] [place] [address] Performed By: #### 2 4321-2, 19056-4, #### [facility] CLIA [id number] [address] [place] Hemoglobin (Bld) [Mass/Vol] 11.0 g/dL Low 11.5-15.5 [facility] Comment on above: Order Comment: Speci men Type: BLOOD SPECIMEN Ordering Facility: [facility] Address: [address] [place] [address] Performed By: #### 2 4321-2, 25236-0, #### [facility] CLIA [id number] [address] [place] MCH (RBC) [Entitic mass] 26.4 pg Normal 26.0-34.0 [facility] Comment on above: Order Comment: Speci men Type: BLOOD SPECIMEN Ordering Facility: [facility] Address: [address] [place] [address] Performed By: #### 2 4321-2, 21015-2, #### [facility] CLIA [id number] [address] [place] MCHC (RBC) [Mass/Vol] 31.3 g/dL Normal 30.5-36.0 [facility] Comment on above: Order Comment: Speci men Type: BLOOD SPECIMEN Ordering Facility: [facility] Address: [address] [place] [address] Performed By: #### 2 4321-2, 80166-7, #### [facility] CLIA [id number] [address] MCV (RBC) [Entitic vol] 84.4 fL Normal 80.0-100.0 [facility] Comment on above: Order Comment: Speci men Type: BLOOD SPECIMEN Ordering Facility: [facility] Address: [address] [place] [address] Performed By: #### 2 4321-2, 26690-9, #### [facility] CLIA [id number] [address] Nucleated RBC (Bld) [#/Vol] 10*3/uL Normal <0.01 [facility] Comment on above: Order Comment: Speci men Type: BLOOD SPECIMEN Ordering Facility: [facility] Address: [address] [place] [address] Performed By: #### 2 4321-2, 40298-1, #### [facility] CLIA [id number] [address] Platelet mean volume (Bld) [Entitic vol] 10.1 fL Normal 9.0-12.7 [facility] Comment on above: Order Comment: Speci men Type: BLOOD SPECIMEN Ordering Facility: [facility] Address: [address] [place] [address] Performed By: #### 2 4321-2, 28620-1, #### [facility] CLIA [id number] [address] [place] Platelets (Bld) [#/Vol] 294 10*3/uL Normal 150-400 [facility] Comment on above: Order Comment: Speci men Type: BLOOD SPECIMEN Ordering Facility: [facility] Address: [address] [place] [address] Performed By: #### 2 4321-2, 64638-1, #### [facility] CLIA [id number] [address] [place] RBC (Bld) [#/Vol] 4.16 10*6/uL Normal 3.90-5.20 [facility] Comment on above: Order Comment: Speci men Type: BLOOD SPECIMEN Ordering Facility: [facility] Address: [address] [place] [address] Performed By: #### 2 4321-2, 08385-2, #### [facility] CLIA [id number] [address] [place] WBC (Bld) [#/Vol] 5.63 10*3/uL Normal 3.70-11.00 [facility] Comment on above: Order Comment: Speci men Type: BLOOD SPECIMEN Ordering Facility: [facility] Address: [address] [place] [address] Performed By: #### 2 4321-2, 74030-2, #### [facility] CLIA [id number] [address] OF [facility] CBC panel Auto (Bld)on 06-16 Erythrocyte distribution width (RBC) [Ratio] 15.4 % High 11.5-15.0 [facility] Comment on above: Order Comment: Speci men Type: BLOOD SPECIMEN Ordering Facility: [facility] Address: [address] [place] [address] Performed By: #### 2 4321-2, 36341-8, #### [facility] CLIA [id number] [address] Hematocrit (Bld) [Volume fraction] 34.9 % Low 36.0-46.0 [facility] Comment on above: Order Comment: Speci men Type: BLOOD SPECIMEN Ordering Facility: [facility] Address: [address] [place] [address] Performed By: #### 2 4321-2, 52920-3, #### [facility] CLIA [id number] [address] Hemoglobin (Bld) [Mass/Vol] 10.9 g/dL Low 11.5-15.5 [facility] Comment on above: Order Comment: Speci men Type: BLOOD SPECIMEN Ordering Facility: [facility] Address: [address] [place] [address] Performed By: #### 2 4321-2, 71285-7, #### [facility] CLIA [id number] [address] MCH (RBC) [Entitic mass] 26.4 pg Normal 26.0-34.0 [facility] Comment on above: Order Comment: Speci men Type: BLOOD SPECIMEN Ordering Facility: [facility] Address: [address] [place] [address] Performed By: #### 2 4321-2, 21395-2, #### [facility] CLIA [id number] [address] MCHC (RBC) [Mass/Vol] 31.2 g/dL Normal 30.5-36.0 [facility] Comment on above: Order Comment: Speci men Type: BLOOD SPECIMEN Ordering Facility: [facility] Address: [address] [place] [address] Performed By: #### 2 4321-2, 68302-3, #### [facility] CLIA [id number] [address] MCV (RBC) [Entitic vol] 84.5 fL Normal 80.0-100.0 [facility] Comment on above: Order Comment: Speci men Type: BLOOD SPECIMEN Ordering Facility: [facility] Address: [address] [place] [address] Performed By: #### 2 4321-2, 32428-3, #### [facility] CLIA [id number] 1 [place] [address] [place] Nucleated RBC (Bld) [#/Vol] 10*3/uL Normal <0.01 [facility] Comment on above: Order Comment: Speci men Type: BLOOD SPECIMEN Ordering Facility: [facility] Address: [address] [place] [address] Performed By: #### 2 1-2, 16785-9, #### [facility] CLIA [id number] 1 [place] [address] [place] Platelet mean volume (Bld) [Entitic vol] 9.8 fL Normal 9.0-12.7 [facility] Comment on above: Order Comment: Speci men Type: BLOOD SPECIMEN Ordering Facility: [facility] Address: [address] [place] [address] Performed By: #### 2 4320-2, 16225-6, #### [facility] CLIA [id number] [address] [place] Platelets (Bld) [#/Vol] 274 10*3/uL Normal 150-400 [facility] Comment on above: Order Comment: Speci men Type: BLOOD SPECIMEN Ordering Facility: [facility] Address: [address] [place] [address] Performed By: #### 2 4320-2, 33008-7, #### [facility] CLIA [id number] 1 [place] [address] [place] RBC (Bld) [#/Vol] 4.13 10*6/uL Normal 3.90-5.20 [facility] Comment on above: Order Comment: Speci men Type: BLOOD SPECIMEN Ordering Facility: [facility] Address: [address] [place] [address] Performed By: #### 2 1-2, 43380-1, #### [facility] CLIA [id number] 1 [place] [address] [place] WBC (Bld) [#/Vol] 6.06 10*3/uL Normal 3.70-11.00 [facility] Comment on above: Order Comment: Speci men Type: BLOOD SPECIMEN Ordering Facility: [facility] Address: [address] [place] [address] Performed By: #### 2 4321-2, 88393-8, #### [facility] CLIA [id number] [address] CBC panel Auto (Bld)on 06-15 Erythrocyte distribution width (RBC) [Ratio] 15.4 % High 11.5-15.0 [facility] Comment on above: Order Comment: Speci men Type: BLOOD SPECIMEN Ordering Facility: [facility] Address: [address] [place] [address] Performed By: #### 2 4321-2, 37814-3, #### [facility] CLIA [id number] [address] Hematocrit (Bld) [Volume fraction] 33.9 % Low 36.0-46.0 [facility] Comment on above: Order Comment: Speci men Type: BLOOD SPECIMEN Ordering Facility: [facility] Address: [address] [place] [address] Performed By: #### 2 4321-2, 12482-7, #### [facility] CLIA [id number] [address] OF [facility] Hemoglobin (Bld) [Mass/Vol] 10.6 g/dL Low 11.5-15.5 [facility] Comment on above: Order Comment: Speci men Type: BLOOD SPECIMEN Ordering Facility: [facility] Address: [address] [place] [address] Performed By: #### 2 4321-2, 06867-2, #### [facility] CLIA [id number] [address] MCH (RBC) [Entitic mass] 26.2 pg Normal 26.0-34.0 [facility] Comment on above: Order Comment: Speci men Type: BLOOD SPECIMEN Ordering Facility: [facility] Address: [address] [place] [address] Performed By: #### 2 1-2, 52664-3, #### [facility] CLIA [id number] [address] MCHC (RBC) [Mass/Vol] 31.3 g/dL Normal 30.5-36.0 [facility] Comment on above: Order Comment: Speci men Type: BLOOD SPECIMEN Ordering Facility: [facility] Address: [address] [place] [address] Performed By: #### 2 4321-2, 80291-8, #### [facility] CLIA [id number] [address] OF [facility] MCV (RBC) [Entitic vol] 83.9 fL Normal 80.0-100.0 [facility] Comment on above: Order Comment: Speci men Type: BLOOD SPECIMEN Ordering Facility: [facility] Address: [address] [place] [address] Performed By: #### 2 1-2, 28090-4, #### [facility] CLIA [id number] [address] OF [facility] Nucleated RBC (Bld) [#/Vol] 10*3/uL Normal <0.01 [facility] Comment on above: Order Comment: Speci men Type: BLOOD SPECIMEN Ordering Facility: [facility] Address: [address] [place] [address] Performed By: #### 2 4321-2, 07884-3, #### [facility] CLIA [id number] [address] Platelet mean volume (Bld) [Entitic vol] 9.9 fL Normal 9.0-12.7 [facility] Comment on above: Order Comment: Speci men Type: BLOOD SPECIMEN Ordering Facility: [facility] Address: [address] [place] [address] Performed By: #### 2 4321-2, 31465-3, 56769-1 #### [facility] CLIA [id number] [address] Platelets (Bld) [#/Vol] 280 10*3/uL Normal 150-400 [facility] Comment on above: Order Comment: Speci men Type: BLOOD SPECIMEN Ordering Facility: [facility] Address: [address] [place] [address] Performed By: #### 2 4321-2, 89452-8, #### [facility] CLIA [id number] [address] RBC (Bld) [#/Vol] 4.04 10*6/uL Normal 3.90-5.20 [facility] Comment on above: Order Comment: Speci men Type: BLOOD SPECIMEN Ordering Facility: [facility] Address: [address] [place] [address] Performed By: #### 2 4321-2, 81141-8, #### [facility] CLIA [id number] [address] WBC (Bld) [#/Vol] 5.80 10*3/uL Normal 3.70-11.00 [facility] Comment on above: Order Comment: Speci men Type: BLOOD SPECIMEN Ordering Facility: [facility] Address: [address] [place] [address] Performed By: #### 2 4321-2, 07388-8, #### [facility] CLIA [id number] [address] THERAPY NTon 06-15-2024 THERAPY NT HNO ID: [id number] Author: MEHREEN MANCERA PT Service: Physical Therapy Author Type: Physical Therapist Type: Therapy (PT/OT/Speech/Resp) Filed: 06/15/2024 16:13 Note Text: Physical Therapy Treatment Summary SERVICE DATE: 06/15/2024 SERVICE TIME: 1518 to 1547 ROOM: [id number] PT 6 Clicks Score: 13 DISCHARGE RECOMMENDATIONS [...] Lack of coordination-other TREATMENT INTERVENTIONS Therapeutic Activity (41903), Neuromuscular Reeducation (03272) Timed Code Treatment (minutes): 29 Skilled Treatment Time (minutes): 29 Therapeutic Activity (64796) Treatment Minutes: 10 $ Therapeutic Activity (32992) Billed Units: 1 unit Neuromuscular Reeducation (75278) Treatment Minutes: 19 $ Neuromuscular Reeducation (82698) Billed Units: 1 unit Sitting balance and [...] Comment: Speci men Type: BLOOD SPECIMENOrdering Facility: [facility] Address: [address] [place] [address] Performed By: #### 5 8410-2 ####[facility] [id number] [address] OF [facility] Hematocrit (Bld) [Volume fraction] 34.8 % Low 36.0-46.0 [facility] Comment on above: Order Comment: Speci men Type: BLOOD SPECIMENOrdering Facility: [facility] Address: [address] [place] [address] Performed By: #### 5 8410-2 ####[facility]IA [id number] [address] OF [facility] Hemoglobin (Bld) [Mass/Vol] 11.0 g/dL Low 11.5-15.5 [facility] Comment on above: Order Comment: Speci men Type: BLOOD SPECIMENOrdering Facility: [facility] Address: [address] [place] [address] Performed By: #### 5 8410-2 ####[facility]IA [id number] [address] MCH (RBC) [Entitic mass] 26.6 pg Normal 26.0-34.0 [facility] Comment on above: Order Comment: Speci men Type: BLOOD SPECIMENOrdering Facility: [facility] Address: [address] [place] [address] Performed By: #### 5 8410-2 ####[facility]ORY[facility]IA [id number] [address] [place] MCHC (RBC) [Mass/Vol] 31.6 g/dL Normal 30.5-36.0 [facility] Comment on above: Order Comment: Speci men Type: BLOOD SPECIMENOrdering Facility: [facility] Address: [address] [place] [address] Performed By: #### 5 8410-2 ####[facility]IA [id number] [address] MCV (RBC) [Entitic vol] 84.3 fL Normal 80.0-100.0 [facility] Comment on above: Order Comment: Speci men Type: BLOOD SPECIMENOrdering Facility: [facility] Address: [address] [place] [address] Performed By: #### 5 8410-2 ####[facility]ORY[facility]IA [id number] [address] [place] Nucleated RBC (Bld) [#/Vol] 10*3/uL Normal <0.01 [facility] Comment on above: Order Comment: Speci men Type: BLOOD SPECIMENOrdering Facility: [facility] Address: [address] [place] [address] Performed By: #### 5 8410-2 ####[facility]ORYCLIA [id number] [address] [place] Platelet mean volume (Bld) [Entitic vol] 9.7 fL Normal 9.0-12.7 [facility] Comment on above: Order Comment: Speci men Type: BLOOD SPECIMENOrdering Facility: [facility] Address: [address] [place] [address] Performed By: #### 5 8410-2 ####[facility]IA [id number] [address] Platelets (Bld) [#/Vol] 278 10*3/uL Normal 150-400 [facility] Comment on above: Order Comment: Speci men Type: BLOOD SPECIMENOrdering Facility: [facility] Address: [address] [place] [address] Performed By: #### 5 8410-2 ####[facility]IA [id number] [address] [place] RBC (Bld) [#/Vol] 4.13 10*6/uL Normal 3.90-5.20 [facility] Comment on above: Order Comment: Speci men Type: BLOOD SPECIMENOrdering Facility: [facility] Address: [address] [place] [address] Performed By: #### 5 8410-2 ####[facility]ORYCLIA [id number] [place] [address] [place] WBC (Bld) [#/Vol] 4.70 10*3/uL Normal 3.70-11.00 [facility] Comment on above: Order Comment: Speci men Type: BLOOD SPECIMENOrdering Facility: [facility] Address: [address] [place] [address] Performed By: #### 5 8410-2 ####[facility]ORY[facility]IA [id number] [place] [address] [place] NURSING PROGon 06-14-2024 NURSING PROG HNO ID: [id number] Author: JOSE JERNIGAN, RN Service: Nursing Author [...] portions of the right lung are clear. Grants Analyst: DEVEN Transcribe Date/Time: Jun 14 2024 1:33P Dictated by : DEV WELCH MD This examination was interpreted and the report reviewed and electronically signed by: DEV WELCH MD on Jun 14 2024 1:35PM EST [id number] Normal [facility] ALLIED HEALTHon 06-13-2024 ALLIED HEALTH HNO ID: [id number] Author: ALFRED DALEY Chaplain Service: ? Author Type: Side Show Entertainer Type: Allied Health Filed: 06/13/2024 14:38 Note Text: SPIRITUAL CARE ASSESSMENT SERVICE DATE: 06/13/2024 SERVICE TIME: 11:53 Visit with: Patient Length of visit (minutes): 5 Baptism / Spirituality: Pt did not Disc. Reason: [...] Speci men Type: BLOOD SPECIMEN Ordering Facility: [facility] Address: [address] [place] [address] Performed By: #### 2 4321-2, 68423-0, #### [facility] CLIA [id number] 1 [place] [address] [place] Calcium [Mass/Vol] 8.9 mg/dL Normal 8.5-10.2 [facility] Comment on above: Order Comment: Speci men Type: BLOOD SPECIMEN Ordering Facility: [facility] Address: [address] [place] [address] Performed By: #### 2 4321-2, 14546-8, #### [facility] CLIA [id number] 1 [place] [address] [place] Chloride [Moles/Vol] 101 mmol/L Normal 98-107 [facility] Comment on above: Order Comment: Rhina mason Type: BLOOD SPECIMEN Ordering Facility: [facility] Address: [address] [place] [address] Performed By: #### 2 4321-2, 57429-3, #### [facility] CLIA [id number] [address] [place] CO2 [Moles/Vol] 24 mmol/L Normal 22-30 [facility] Comment on above: Order Comment: Speci men Type: BLOOD SPECIMEN Ordering Facility: [facility] Address: [address] [place] [address] Performed By: #### 2 4321-2, 94382-3, #### [facility] CLIA [id number] [address] STATES OF [facility] Creatinine [Mass/Vol] 1.04 mg/dL High 0.58-0.96 [facility] Comment on above: Order Comment: Rhina mason Type: BLOOD SPECIMEN Ordering Facility: [facility] Address: [address] [place] [address] Performed By: #### 2 4321-2, 28593-9, #### [facility] CLIA [id number] [address] Creatinine and Glomerular filtration rate.predicted panel (S/P/Bld) 53 mL/min/1.73m??? Low >=60 [facility] Comment on above: Order Comment: Specrobson mason Type: BLOOD SPECIMEN Ordering Facility: [facility] Address: [address] [place] [address] Result Comment: Isa mated Glomerular Filtration Rate [...] actual GFR. Performed By: #### 2 4321-2, 60348-3, #### [facility] CLIA [id number] 1 [place] [address] [place] Glucose [Mass/Vol] 95 mg/dL Normal 74-99 [facility] Comment on above: Order Comment: Rhina mason Type: BLOOD SPECIMEN Ordering Facility: [facility] Address: [address] [place] [address] Result Comment: The [place] [employer] (ADA) [...] 2016.39(Suppl 1). Performed By: #### 2 4321-2, 08150-0, #### [facility] CLIA [id number] [address] [place] [address] [place] Potassium [Moles/Vol] 3.8 mmol/L Normal 3.7-5.1 [facility] Comment on above: Order Comment: Rhina mason Type: BLOOD SPECIMEN Ordering Facility: [facility] Address: [address] [place] [address] Performed By: #### 2 4321-2, 32762-4, #### [facility] CLIA [id number] 1 [place] [address] [place] Sodium [Moles/Vol] 136 mmol/L Normal 136-144 [facility] Comment on above: Order Comment: Rhina mason Type: BLOOD SPECIMEN Ordering Facility: [facility] Address: [address] [place], [place] [address] Performed By: #### 2 4321-2, 49326-5, #### [facility] CLIA [id number] [address] [place] Urea nitrogen [Mass/Vol] 16 mg/dL Normal 7-21 [facility] Comment on above: Order Comment: Speci men Type: BLOOD SPECIMEN Ordering Facility: [facility] Address: [address] [place] [address] Performed By: #### 2 4321-2, 45113-2, #### [facility] CLIA [id number] [address] [place] CBC panel Auto (Bld)on 06-13 Erythrocyte distribution width (RBC) [Ratio] 15.5 % High 11.5-15.0 [facility] Comment on above: Order Comment: Speci men Type: BLOOD SPECIMENOrdering Facility: [facility] Address: [address] [place] [address] Performed By: #### 5 8410-2 ####[facility]ORYCLIA [id number] [address] [place] Hematocrit (Bld) [Volume fraction] 33.1 % Low 36.0-46.0 [facility] Comment on above: Order Comment: Speci men Type: BLOOD SPECIMENOrdering Facility: [facility] Address: [address] [place] [address] Performed By: #### 5 8410-2 ####[facility]ORYCLIA [id number] [address] [place] Hemoglobin (Bld) [Mass/Vol] 10.2 g/dL Low 11.5-15.5 [facility] Comment on above: Order Comment: Speci men Type: BLOOD SPECIMENOrdering Facility: [facility] Address: [address] [place] [address] Performed By: #### 5 8410-2 ####[facility]ORYCLIA [id number] [address] [place] MCH (RBC) [Entitic mass] 26.5 pg Normal 26.0-34.0 [facility] Comment on above: Order Comment: Speci men Type: BLOOD SPECIMENOrdering Facility: [facility] Address: [address] [place] [address] Performed By: #### 5 8410-2 ####[facility]ORYCLIA [id number] [address] MCHC (RBC) [Mass/Vol] 30.8 g/dL Normal 30.5-36.0 [facility] Comment on above: Order Comment: Speci men Type: BLOOD SPECIMENOrdering Facility: [facility] Address: [address] [place] [address] Performed By: #### 5 8410-2 ####[facility]ORYCLIA [id number] [address] MCV (RBC) [Entitic vol] 86.0 fL Normal 80.0-100.0 [facility] Comment on above: Order Comment: Speci men Type: BLOOD SPECIMENOrdering Facility: [facility] Address: [address] [place] [address] Performed By: #### 5 8410-2 ####[facility]ORYCLIA [id number] [address] Nucleated RBC (Bld) [#/Vol] 10*3/uL Normal <0.01 [facility] Comment on above: Order Comment: Speci men Type: BLOOD SPECIMENOrdering Facility: [facility] Address: [address] [place] [address] Performed By: #### 5 8410-2 ####[facility]ORYCLIA [id number] [address] Platelet mean volume (Bld) [Entitic vol] 9.6 fL Normal 9.0-12.7 [facility] Comment on above: Order Comment: Speci men Type: BLOOD SPECIMENOrdering Facility: [facility] Address: [address] [place] [address] Performed By: #### 5 8410-2 ####[facility]ORYCLIA [id number] [address] [place] Platelets (Bld) [#/Vol] 287 10*3/uL Normal 150-400 [facility] Comment on above: Order Comment: Speci men Type: BLOOD SPECIMENOrdering Facility: [facility] Address: [address] [place] [address] Performed By: #### 5 8410-2 ####[facility]ATORYCLIA [id number] [place] [address] [place] RBC (Bld) [#/Vol] 3.85 10*6/uL Low 3.90-5.20 [facility] Comment on above: Order Comment: Speci men Type: BLOOD SPECIMENOrdering Facility: [facility] Address: [address] [place] [address] Performed By: #### 5 8410-2 ####[facility]ATORYCLIA [id number] [address] OF [facility] WBC (Bld) [#/Vol] 4.79 10*3/uL Normal 3.70-11.00 [facility] Comment on above: Order Comment: Speci men Type: BLOOD SPECIMENOrdering Facility: [facility] Address: [address] [place] [address] Performed By: #### 5 8410-2 ####[facility]ATORYCLIA [id number] [address] [place] aPTT PPPon 06-13-2024 aPTT Coag (PPP) [Time] 51.3 s High 23.0-32.4 [facility] Comment on above: Order Comment: Speci men Type: BLOOD SPECIMEN Ordering Facility: [facility] Address: [address] [place] [address] Performed By: #### 2 4321-2, 65657-6, 65322-0 #### [facility] CLIA [id number] [address] [place] aPTT Coag (PPP) [Time] 89.0 s High 23.0-32.4 [facility] Comment on above: Order Comment: Speci men Type: BLOOD SPECIMEN Ordering Facility: [facility] Address: [address] [place], [place] [address] Performed By: #### 2 4321-2, 91354-2, #### [employer] [facility] CLIA [id number] [address] [place] ALLIED HEALTHon 06-12-2024 ALLIED HEALTH HNO ID: [id number] Author: HELLEN SEVILLA RT(R) Service: Radiology Author [...] PATIENT PRESENTS WITH AN IMPLANTABLE OR ATTACHED CHECKOUT OPERATOR: No RADIOLOGY DEPARTMENT: CT; Exam(s) Completed: Brain PERIPHERAL IV DATA: Not applicable SIGNED BY: RT Reji(R) June 12, 2024 9:13 AM Normal [facility] CBC W Auto Differential pane l (Bld)on 06-12-2024 Basophils (Bld) [#/Vol] 0.03 10*3/uL Normal <0.11 [facility] Comment on above: Order Comment: Rhina mason Type: BLOOD SPECIMEN Ordering Facility: [facility] Address: [address] [place] [address] Performed By: #### 2 4321-2, 40289-2, 82262-0 #### [facility] CLIA [id number] [address] [place] Basophils/100 WBC (Bld) 0.6 % Normal [facility] Comment on above: Order Comment: Speci men Type: BLOOD SPECIMEN Ordering Facility: [facility] Address: [address] [place] [address] Performed By: #### 2 4321-2, 10019-2, #### [facility] CLIA [id number] [address] Differential cell count method Nom (Bld) Auto Normal [facility] Comment on above: Order Comment: Speci men Type: BLOOD SPECIMEN Ordering Facility: [facility] Address: [address] [place] [address] Performed By: #### 2 4321-2, 82075-9, #### [facility] CLIA [id number] [address] [place] Eosinophils (Bld) [#/Vol] 0.05 10*3/uL Normal <0.46 [facility] Comment on above: Order Comment: Speci men Type: BLOOD SPECIMEN Ordering Facility: [facility] Address: [address] [place] [address] Performed By: #### 2 1-2, 06259-9, #### [facility] CLIA [id number] [address] STATES OF [facility] Eosinophils/100 WBC (Bld) 1.0 % Normal [facility] Comment on above: Order Comment: Speci men Type: BLOOD SPECIMEN Ordering Facility: [facility] Address: [address] [place] [address] Performed By: #### 2 4321-2, 35155-8, #### [facility] CLIA [id number] [address] [place] Erythrocyte distribution width (RBC) [Ratio] 15.6 % High 11.5-15.0 [facility] Comment on above: Order Comment: Speci men Type: BLOOD SPECIMEN Ordering Facility: [facility] Address: [address] [place] [address] Performed By: #### 2 4321-2, 50331-2, #### [facility] CLIA [id number] [address] [place] Hematocrit (Bld) [Volume fraction] 34.6 % Low 36.0-46.0 [facility] Comment on above: Order Comment: Speci men Type: BLOOD SPECIMEN Ordering Facility: [facility] Address: [address] [place] [address] Performed By: #### 2 1-2, 37748-0, #### [facility] CLIA [id number] [address] [place] Hemoglobin (Bld) [Mass/Vol] 10.6 g/dL Low 11.5-15.5 [facility] Comment on above: Order Comment: Speci men Type: BLOOD SPECIMEN Ordering Facility: [facility] Address: [address] [place] [address] Performed By: #### 2 4320-2, 99791-3, #### [facility] CLIA [id number] [address] [place] Immature granulocytes (Bld) [#/Vol] 10*3/uL Normal <0.10 [facility] Comment on above: Order Comment: Speci men Type: BLOOD SPECIMEN Ordering Facility: [facility] Address: [address] [place] [address] Performed By: #### 2 1-2, 56996-3, #### [facility] CLIA [id number] [address] [place] Immature granulocytes/100 WBC (Bld) 0.2 % Normal [facility] Comment on above: Order Comment: Speci men Type: BLOOD SPECIMEN Ordering Facility: [facility] Address: [address] [place] [address] Performed By: #### 2 1-2, 31798-2, #### [facility] CLIA [id number] 1 [place] [address] [place] Lymphocytes (Bld) [#/Vol] 1.65 10*3/uL Normal 1.00-4.00 [facility] Comment on above: Order Comment: Speci men Type: BLOOD SPECIMEN Ordering Facility: [facility] Address: [address] [place] [address] Performed By: #### 2 4321-2, 68109-8, #### [facility] CLIA [id number] [address] Lymphocytes/100 WBC (Bld) 31.9 % Normal [facility] Comment on above: Order Comment: Speci men Type: BLOOD SPECIMEN Ordering Facility: [facility] Address: [address] [place] [address] Performed By: #### 2 4321-2, 16930-7, #### [facility] CLIA [id number] [address] STATES OF [facility] MCH (RBC) [Entitic mass] 26.2 pg Normal 26.0-34.0 [facility] Comment on above: Order Comment: Speci men Type: BLOOD SPECIMEN Ordering Facility: [facility] Address: [address] [place] [address] Performed By: #### 2 4321-2, 25964-9, #### [facility] CLIA [id number] [address] OF [facility] MCHC (RBC) [Mass/Vol] 30.6 g/dL Normal 30.5-36.0 [facility] Comment on above: Order Comment: Speci men Type: BLOOD SPECIMEN Ordering Facility: [facility] Address: [address] [place] [address] Performed By: #### 2 4321-2, 70137-7, #### [facility] CLIA [id number] [address] MCV (RBC) [Entitic vol] 85.6 fL Normal 80.0-100.0 [facility] Comment on above: Order Comment: Speci men Type: BLOOD SPECIMEN Ordering Facility: [facility] Address: [address] [place] [address] Performed By: #### 2 4321-2, 25014-9, #### [facility] CLIA [id number] 1 [place] [address] [place] Monocytes (Bld) [#/Vol] 0.46 10*3/uL Normal <0.87 [facility] Comment on above: Order Comment: Speci men Type: BLOOD SPECIMEN Ordering Facility: [facility] Address: [address] [place] [address] Performed By: #### 2 4321-2, 76771-9, #### [facility] CLIA [id number] [address] [place] Monocytes/100 WBC (Bld) 8.9 % Normal [facility] Comment on above: Order Comment: Speci men Type: BLOOD SPECIMEN Ordering Facility: [facility] Address: [address] [place] [address] Performed By: #### 2 1-2, 19935-6, #### [facility] CLIA [id number] [address] [place] Neutrophils (Bld) [#/Vol] 2.97 10*3/uL Normal 1.45-7.50 [facility] Comment on above: Order Comment: Speci men Type: BLOOD SPECIMEN Ordering Facility: [facility] Address: [address] [place] [address] Performed By: #### 2 4321-2, 52562-5, #### [facility] CLIA [id number] [address] [place] Neutrophils/100 WBC (Bld) 57.4 % Normal [facility] Comment on above: Order Comment: Speci men Type: BLOOD SPECIMEN Ordering Facility: [facility] Address: [address] [place] [address] Performed By: #### 2 4321-2, 73659-9, #### [facility] CLIA [id number] [address] [place] Nucleated RBC (Bld) [#/Vol] 10*3/uL Normal <0.01 [facility] Comment on above: Order Comment: Speci men Type: BLOOD SPECIMEN Ordering Facility: [facility] Address: [address] [place] [address] Performed By: #### 2 4321-2, 74729-2, #### [facility] CLIA [id number] [address] [place] Nucleated RBC/100 WBC (Bld) [Ratio] 0.0 /100 WBC Normal [facility] Comment on above: Order Comment: Speci men Type: BLOOD SPECIMEN Ordering Facility: [facility] Address: [address] [place] [address] Performed By: #### 2 4321-2, 55331-3, #### [facility] CLIA [id number] [address] [place] Platelet mean volume (Bld) [Entitic vol] 9.6 fL Normal 9.0-12.7 [facility] Comment on above: Order Comment: Speci men Type: BLOOD SPECIMEN Ordering Facility: [facility] Address: [address] [place] [address] Performed By: #### 2 4321-2, 71035-9, #### [facility] CLIA [id number] [address] [place] Platelets (Bld) [#/Vol] 314 10*3/uL Normal 150-400 [facility] Comment on above: Order Comment: Speci men Type: BLOOD SPECIMEN Ordering Facility: [facility] Address: [address] [place] [address] Performed By: #### 2 4321-2, 25270-7, #### [facility] CLIA [id number] [address] [place] RBC (Bld) [#/Vol] 4.04 10*6/uL Normal 3.90-5.20 [facility] Comment on above: Order Comment: Speci men Type: BLOOD SPECIMEN Ordering Facility: [facility] Address: [address] [place], [place] [address] Performed By: #### 2 4321-2, 45055-3, #### [facility] CLIA [id number] 1 [place] [address] [place] WBC (Bld) [#/Vol] 5.17 10*3/uL Normal 3.70-11.00 [facility] Comment on above: Order Comment: Speci men Type: BLOOD SPECIMEN Ordering Facility: [facility] Address: [address] [place] [address] Performed By: #### 2 4321-2, 26317-5, #### [facility] CLIA [id number] [address] [place] CONSULTon 06-12-2024 CONSULT HNO ID: [id number] Author: MINA TALBERT MD Service: Cardiovascular Disease Author Type: Physician Type: Consults Filed: 06/12/2024 10:40 Note Text: CARDIOLOGY CONSULTATION- [facility] Patient Name: Mel Castillo : 1940 PRIMARY CARE PHYSICIAN: Jared Evans MD [address] [place] [address] REFERRING PHYSICIAN No referring provider defined for [...] presumptive 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[facility] with history of prior stroke PAD [...] the hospital a few months ago at [facility] she was taking her Eliquis [...] CONSULT PROGon 06-12-2024 CONSULT PROG HNO ID: [id number] Author: NICOLAS TESFAYE APRN.SHAMIKA Service: Neurology General [...] Score: 1 (06/12/24 0945 : Nicolas Tesfaye APRN.STORES CLERK) 1 MENTAL STATUS: Alert, oriented to person, [...] and Prevention (personally reviewed by Nicolas Tesfaye APRN.STORES CLERK): Daily Rounding Date: 06/12/24 Daily Rounding Time: [...] DATE OF EXAM: Jun 12 2024 9:25AM [facility] 0504 - CT BRAIN WO IVCON [...] intracranial hemorrhage. Chronic changes, as detailed above. Grants Analyst: DEVEN Transcribe Date/Time: Jun 12 2024 9:42A [...] Speci men Type: BLOOD SPECIMEN Ordering Facility: [facility] Address: [address] [place] [address] Performed By: #### 2 4321-2, 26299-9, #### [facility] CLIA [id number] [address] STATES OF [facility] ALP [Catalytic activity/Vol] 88 U/L Normal 34-123 [facility] Comment on above: Order Comment: Speci men Type: BLOOD SPECIMEN Ordering Facility: [facility] Address: [address] [place] [address] Performed By: #### 2 4321-2, 26675-6, #### [facility] CLIA [id number] [address] [place] ALT With P-5'-P [Catalytic activity/Vol] 6 U/L Low 7-38 [facility] Comment on above: Order Comment: Speci men Type: BLOOD SPECIMEN Ordering Facility: [facility] Address: [address] [place] [address] Performed By: #### 2 4321-2, 73104-8, #### [facility] CLIA [id number] [address] STATES [facility] Anion gap [Moles/Vol] 13 mmol/L Normal 8-15 [facility] Comment on above: Order Comment: Speci men Type: BLOOD SPECIMEN Ordering Facility: [facility] Address: [address] [place] [address] Performed By: #### 2 4321-2, 66948-3, #### [facility] CLIA [id number] 1 [place] [address] [place] AST With P-5'-P [Catalytic activity/Vol] 9 U/L Low 13-35 [facility] Comment on above: Order Comment: Speci men Type: BLOOD SPECIMEN Ordering Facility: [facility] Address: [address] [place] [address] Performed By: #### 2 4321-2, 88811-4, #### [facility] CLIA [id number] 1 [place] [address] [place] Bilirubin [Mass/Vol] 0.6 mg/dL Normal 0.2-1.3 [facility] Comment on above: Order Comment: Speci men Type: BLOOD SPECIMEN Ordering Facility: [facility] Address: [address] [place] [address] Performed By: #### 2 4321-2, 97952-7, #### [facility] CLIA [id number] [address] [place] Calcium [Mass/Vol] 9.2 mg/dL Normal 8.5-10.2 [facility] Comment on above: Order Comment: Speci men Type: BLOOD SPECIMEN Ordering Facility: [facility] Address: [address] [place] [address] Performed By: #### 2 4321-2, 87557-2, #### [facility] CLIA [id number] 1 [place] [address] [place] Chloride [Moles/Vol] 101 mmol/L Normal 98-107 [facility] Comment on above: Order Comment: Speci men Type: BLOOD SPECIMEN Ordering Facility: [facility] Address: [address] [place] [address] Performed By: #### 2 4321-2, 32283-9, #### [facility] CLIA [id number] 1 [place] [address] [place] CO2 [Moles/Vol] 23 mmol/L Normal 22-30 [facility] Comment on above: Order Comment: Speci men Type: BLOOD SPECIMEN Ordering Facility: [facility] Address: [address] [place] [address] Performed By: #### 2 4321-2, 18271-0, #### [facility] CLIA [id number] [address] [place] Creatinine [Mass/Vol] 1.02 mg/dL High 0.58-0.96 [facility] Comment on above: Order Comment: Speci men Type: BLOOD SPECIMEN Ordering Facility: [facility] Address: [address] [place] [address] Performed By: #### 2 4321-2, 47782-3, #### [facility] CLIA [id number] [address] OF [facility] Creatinine and Glomerular filtration rate.predicted panel (S/P/Bld) 54 mL/min/1.73m??? Low >=60 [facility] Comment on above: Order Comment: Speci men Type: BLOOD SPECIMEN Ordering Facility: [facility] Address: [address] [place] [address] Result Comment: Isa mated Glomerular Filtration Rate [...] actual GFR. Performed By: #### 2 4321-2, 19114-6, #### [facility] CLIA [id number] [address] [place] Glucose [Mass/Vol] 109 mg/dL High 74-99 [facility] Comment on above: Order Comment: Speci men Type: BLOOD SPECIMEN Ordering Facility: [facility] Address: [address] [place] [address] Result Comment: The [place] [employer] (ADA) [...] 2016.39(Suppl 1). Performed By: #### 2 4321-2, 40227-8, #### [facility] CLIA [id number] 1 [place] [address] [place] Potassium [Moles/Vol] 4.0 mmol/L Normal 3.7-5.1 [facility] Comment on above: Order Comment: Rhina mason Type: BLOOD SPECIMEN Ordering Facility: [facility] Address: [address] [place] [address] Performed By: #### 2 4321-2, 16711-4, #### [facility] CLIA [id number] 1 [place] [address] [place] Protein [Mass/Vol] 6.4 g/dL Normal 6.3-8.0 [facility] Comment on above: Order Comment: Samiri isabella Type: BLOOD SPECIMEN Ordering Facility: [facility] Address: [address] [place] [address] Performed By: #### 2 4321-2, 80938-2, #### [facility] CLIA [id number] 1 [place] [address] [place] Sodium [Moles/Vol] 137 mmol/L Normal 136-144 [facility] Comment on above: Order Comment: Samiri men Type: BLOOD SPECIMEN Ordering Facility: [facility] Address: [address] [place] [address] Performed By: #### 2 4321-2, 68443-4, #### [facility] CLIA [id number] [address] STATES [facility] Urea nitrogen [Mass/Vol] 12 mg/dL Normal 7-21 [facility] Comment on above: Order Comment: Speci men Type: BLOOD SPECIMEN Ordering Facility: [facility] Address: [address] [place] [address] Performed By: #### 2 4321-2, 87333-9, 55298-4 #### [facility] CLIA [id number] [address] Magnesium SerPl-mCncon 06-12 Magnesium [Mass/Vol] 2.3 mg/dL Normal 1.7-2.3 [facility] Comment on above: Order Comment: Specrobson mason Type: BLOOD SPECIMEN Ordering Facility: [facility] Address: [address] [place] [address] Performed By: #### 2 4321-2, 13246-0, 57695-7 #### [facility] CLIA [id number] [address] OF [facility] NURSING PROGon 06-12-2024 NURSING PROG HNO ID: [id number] Author: ROBINSON VELÁSQUEZ RN Service: ? Author [...] PT EDon 06-12-2024 PT ED HNO ID: [id number] Author: DOT PETERSON [facility] Service: Pharmacy Author Type: ? Type: Patient Education Filed: 06/12/2024 16:17 Note Text: Attestation signed by Dot Peterson [facility] at 06/12/2024 4:17 PM I have [...] questions. Patient aware of copay. Nayana Rowan, Reduction Plant Supervisor [facility] THERAPY NTon 06-12-2024 THERAPY NT HNO ID: [id number] Author: LATOYA LONG PT Service: Physical Therapy Author Type: Physical Therapist Type: Therapy (PT/OT/Speech/Resp) Filed: 06/12/2024 15:33 Note Text: Physical Therapy Treatment Summary SERVICE DATE: 06/12/2024 SERVICE TIME: 1445 to 1509 ROOM: [place] [address] PT 6 Clicks Score: 13 DISCHARGE RECOMMENDATIONS [...] Lack of coordination-other TREATMENT INTERVENTIONS Therapeutic Activity (00944), Neuromuscular Reeducation (22171) Timed Code Treatment (minutes): 23 Skilled Treatment Time (minutes): 23 Therapeutic Activity (28340) Treatment Minutes: 10 $ Therapeutic Activity (05653) Billed Units: 1 unit Training and assist with bed mobility, transfers and taking steps in place and side steps along the EOB with the walker. Neuromuscular Reeducation (04454) Treatment Minutes: 13 $ Neuromuscular Reeducation (71036) Billed Units: 1 unit Instructed pt in [...] [facility] THER[facility] HNO ID: [id number] Author: SAMI WEINBERG OTR/L Service: Occupational Therapy Author Type: Occupational Therapist Type: Therapy (PT/OT/Speech/Resp) Filed: 06/12/2024 08:50 Note Text: Occupational Therapy Evaluation Summary SERVICE DATE: 06/12/2024 SERVICE TIME: 810 ROOM: [id number] OT 6 Clicks Score: 15 DISCHARGE RECOMMENDATIONS [...] and signs-other TREATMENT INTERVENTIONS Evaluation, Therapeutic Activity (42083) Timed Code Treatment (minutes): 8 Skilled Treatment Time (minutes): 23 $ Evaluation - Moderate (75285) Billed Units: 1 unit Therapeutic Activity (21885) Treatment Minutes: 8 $ Therapeutic Activity (98708) Billed Units: 1 unit TRAINING AND EDUCATION PROVIDED Assistive Device Use, Bed Mobility, Benefits of In-Hospital Mobility, Cognitive Stimulation Activities, Discharge Planning, Disease Specific Education, Role of Occupational Therapy, Safety/Judgment, Sitting Balance to Improve [place] with ADLs/Self-Care THERAPEUTIC SKILLS USED Activity Dosing, [...] Coag (PPP) [Time] 56.1 s High 23.0-32.4 [facility] Comment on above: Order Comment: Speci men Type: BLOOD SPECIMEN Ordering Facility: [facility] Address: [address] [place] [address] Performed By: #### 2 4321-2, 01108-5, 17731-1 #### [facility] CLIA [id number] [address] aPTT Coag (PPP) [Time] 79.0 s High 23.0-32.4 [facility] Comment on above: Order Comment: Speci men Type: BLOOD SPECIMEN Ordering Facility: [facility] Address: [address] [place], [place] [address] Performed By: #### 1 4979-9 #### [facility] CLIA [id number] [address] aPTT Coag (PPP) [Time] 123.9 s High 23.0-32.4 [facility] Comment on above: Order Comment: Speci men Type: BLOOD SPECIMEN Ordering Facility: [facility] Address: [address] [place] [address] Performed By: #### 2 4321-2, 57987-4, #### [facility] CLIA [id number] [address] aPTT Coag (PPP) [Time] 117.3 s High 23.0-32.4 [facility] Comment on above: Order Comment: Speci men Type: BLOOD SPECIMEN Ordering Facility: [facility] Address: [address] [place], [place] [address] Performed By: #### 2 4321-2, 58016-0, #### [facility] CLIA [id number] [address] OF [facility] 36on 06-11-[address] [place] [address] 06-11-2024 [facility] HNO ID: [id number] Author: FABIO KERR Tech Service: ? Author Type: Drywaller Type: Allied Health Filed: 06/11/2024 14:16 Note [...] PATIENT PRESENTS WITH AN IMPLANTABLE OR ATTACHED CHECKOUT OPERATOR: No RADIOLOGY DEPARTMENT: MR; Exam(s) Completed: Head: Routine Brain [place] MRA MRA Carotid PERIPHERAL IV DATA: Not applicable SIGNED BY: Anne Marie Carrillo June 11, 2024 2:15 PM Normal [facility] CBC W Auto Differential pane l (Bld)on 06-11-2024 Basophils (Bld) [#/Vol] 0.03 10*3/uL Normal <0.11 [facility] Comment on above: Order Comment: Speci men Type: BLOOD SPECIMEN Ordering Facility: [facility] Address: [address] [place] [address] Performed By: #### 2 4321-2, 54969-2, #### [facility] CLIA [id number] [address] [place] Basophils/100 WBC (Bld) 0.4 % Normal [facility] Comment on above: Order Comment: Speci men Type: BLOOD SPECIMEN Ordering Facility: [facility] Address: [address] [place] [address] Performed By: #### 2 4321-2, 78725-2, #### [facility] CLIA [id number] [address] [place] Differential cell count method Nom (Bld) Auto Normal [facility] Comment on above: Order Comment: Speci men Type: BLOOD SPECIMEN Ordering Facility: [facility] Address: [address] [place] [address] Performed By: #### 2 4321-2, 91253-9, #### [facility] CLIA [id number] [address] [place] Eosinophils (Bld) [#/Vol] 10*3/uL Normal <0.46 [facility] Comment on above: Order Comment: Speci men Type: BLOOD SPECIMEN Ordering Facility: [facility] Address: [address] [place] [address] Performed By: #### 2 4321-2, 82852-5, #### [facility] CLIA [id number] [address] [place] Eosinophils/100 WBC (Bld) 0.3 % Normal [facility] Comment on above: Order Comment: Speci men Type: BLOOD SPECIMEN Ordering Facility: [facility] Address: [address] [place] [address] Performed By: #### 2 4321-2, 11311-1, #### [facility] CLIA [id number] [address] [place] Erythrocyte distribution width (RBC) [Ratio] 15.6 % High 11.5-15.0 [facility] Comment on above: Order Comment: Speci men Type: BLOOD SPECIMEN Ordering Facility: [facility] Address: [address] [place] [address] Performed By: #### 2 4321-2, 12107-6, #### [facility] CLIA [id number] [address] [place] Hematocrit (Bld) [Volume fraction] 37.6 % Normal 36.0-46.0 [facility] Comment on above: Order Comment: Speci men Type: BLOOD SPECIMEN Ordering Facility: [facility] Address: [address] [place] [address] Performed By: #### 2 4321-2, 10146-9, #### [facility] CLIA [id number] [address] [place] Hemoglobin (Bld) [Mass/Vol] 11.5 g/dL Normal 11.5-15.5 [facility] Comment on above: Order Comment: Speci men Type: BLOOD SPECIMEN Ordering Facility: [facility] Address: [address] [place] [address] Performed By: #### 2 4321-2, 80427-9, #### [facility] CLIA [id number] [address] [place] [address] [place] Immature granulocytes (Bld) [#/Vol] 0.03 10*3/uL Normal <0.10 [facility] Comment on above: Order Comment: Speci men Type: BLOOD SPECIMEN Ordering Facility: [facility] Address: [address] [place] [address] Performed By: #### 2 4321-2, 83967-1, #### [facility] CLIA [id number] [address] [place] Immature granulocytes/100 WBC (Bld) 0.4 % Normal [facility] Comment on above: Order Comment: Speci men Type: BLOOD SPECIMEN Ordering Facility: [facility] Address: [address] [place] [address] Performed By: #### 2 1-2, 59508-1, #### [facility] CLIA [id number] [address] [place] [address] [place] Lymphocytes (Bld) [#/Vol] 1.26 10*3/uL Normal 1.00-4.00 [facility] Comment on above: Order Comment: Speci men Type: BLOOD SPECIMEN Ordering Facility: [facility] Address: [address] [place] [address] Performed By: #### 2 4321-2, 94153-3, #### [facility] CLIA [id number] [address] [place] Lymphocytes/100 WBC (Bld) 16.9 % Normal [facility] Comment on above: Order Comment: Speci men Type: BLOOD SPECIMEN Ordering Facility: [facility] Address: [address] [place] [address] Performed By: #### 2 4321-2, 83190-6, #### [facility] CLIA [id number] [address] MCH (RBC) [Entitic mass] 26.6 pg Normal 26.0-34.0 [facility] Comment on above: Order Comment: Speci men Type: BLOOD SPECIMEN Ordering Facility: [facility] Address: [address] [place] [address] Performed By: #### 2 1-2, 61527-8, #### [facility] CLIA [id number] [address] MCHC (RBC) [Mass/Vol] 30.6 g/dL Normal 30.5-36.0 [facility] Comment on above: Order Comment: Speci men Type: BLOOD SPECIMEN Ordering Facility: [facility] Address: [address] [place] [address] Performed By: #### 2 4320-2, 92235-7, #### [facility] CLIA [id number] [address] MCV (RBC) [Entitic vol] 87.0 fL Normal 80.0-100.0 [facility] Comment on above: Order Comment: Speci men Type: BLOOD SPECIMEN Ordering Facility: [facility] Address: [address] [place] [address] Performed By: #### 2 4320-2, 70673-5, #### [facility] CLIA [id number] [address] Monocytes (Bld) [#/Vol] 0.68 10*3/uL Normal <0.87 [facility] Comment on above: Order Comment: Speci men Type: BLOOD SPECIMEN Ordering Facility: [facility] Address: [address] [place] [address] Performed By: #### 2 4321-2, 21144-3, #### [facility] CLIA [id number] 1 [place] [address] [place] Monocytes/100 WBC (Bld) 9.1 % Normal [facility] Comment on above: Order Comment: Speci men Type: BLOOD SPECIMEN Ordering Facility: [facility] Address: [address] [place] [address] Performed By: #### 2 4321-2, 99712-8, #### [facility] CLIA [id number] 1 [place] [address] [place] Neutrophils (Bld) [#/Vol] 5.43 10*3/uL Normal 1.45-7.50 [facility] Comment on above: Order Comment: Speci men Type: BLOOD SPECIMEN Ordering Facility: [facility] Address: [address] [place] [address] Performed By: #### 2 4321-2, 91616-6, #### [facility] CLIA [id number] [address] [place] Neutrophils/100 WBC (Bld) 72.9 % Normal [facility] Comment on above: Order Comment: Speci men Type: BLOOD SPECIMEN Ordering Facility: [facility] Address: [address] [place] [address] Performed By: #### 2 4321-2, 65230-3, #### [facility] CLIA [id number] 1 [place] [address] [place] Nucleated RBC (Bld) [#/Vol] 10*3/uL Normal <0.01 [facility] Comment on above: Order Comment: Speci men Type: BLOOD SPECIMEN Ordering Facility: [facility] Address: [address] [place] [address] Performed By: #### 2 4321-2, 34325-2, #### [facility] CLIA [id number] 1 [place] [address] [place] Nucleated RBC/100 WBC (Bld) [Ratio] 0.0 /100 WBC Normal [facility] Comment on above: Order Comment: Speci men Type: BLOOD SPECIMEN Ordering Facility: [facility] Address: [address] [place] [address] Performed By: #### 2 4321-2, 96916-7, #### [facility] CLIA [id number] [address] [place] Platelet mean volume (Bld) [Entitic vol] 9.5 fL Normal 9.0-12.7 [facility] Comment on above: Order Comment: Speci men Type: BLOOD SPECIMEN Ordering Facility: [facility] Address: [address] [place] [address] Performed By: #### 2 4321-2, 95188-3, #### [facility] CLIA [id number] [address] [place] Platelets (Bld) [#/Vol] 329 10*3/uL Normal 150-400 [facility] Comment on above: Order Comment: Speci men Type: BLOOD SPECIMEN Ordering Facility: [facility] Address: [address] [place] [address] Performed By: #### 2 4321-2, 50632-0, #### [facility] CLIA [id number] [address] [place] RBC (Bld) [#/Vol] 4.32 10*6/uL Normal 3.90-5.20 [facility] Comment on above: Order Comment: Speci men Type: BLOOD SPECIMEN Ordering Facility: [facility] Address: [address] [place] [address] Performed By: #### 2 4321-2, 15154-4, #### [facility] CLIA [id number] [address] [place] WBC (Bld) [#/Vol] 7.45 10*3/uL Normal 3.70-11.00 [facility] Comment on above: Order Comment: Speci men Type: BLOOD SPECIMEN Ordering Facility: [facility] Address: [address] [place] [address] Performed By: #### 2 4321-2, 31387-2, 83039-1 #### [facility] CLIA [id number] [address] OF [facility] CONSULTon 06-11-2024 CONSULT HNO ID: [id number] Author: JENNY WALLACE MD Service: Neurology General [...] cannot ambulate. Pre-admission Pre-morbid mRS: Premorbid Modified Stratford Score: 0 - No symptoms at all [...] [facility] CONS[facility] HNO ID: [id number] Author: TOÑO MANZO MD Service: Urology Author [...] discussed with the Patient or Patient's Authorized Battery Parts Assembler. As applicable, any other physician, advance practice provider, medical student, or other health professional student that will be observing or involved in the sensitive examination for educational or training purposes was discussed with the Patient or Authorized Battery Parts Assembler. The Patient or Authorized Battery Parts Assembler has agreed to proceed with the sensitive [...] lesion. Consider follow-up renal CT/MR for characterization. Grants Analyst: DEVEN Chaudhry (more content not included)... Normal [facility] CONSULT PROGon 06-11-2024 CONSULT PROG HNO ID: [id number] Author: CARL PERSAUD RPh Service: Pharmacy Author [...] [facility] CONSULT PROG HNO ID: [id number] Author: CARL PERSAUD RPh Service: Pharmacy Author [...] DATE OF EXAM: Jun 11 2024 3:07AM [facility] 0530 - CT ABD/PEL W IVCON [...] to bilateral greater trochanters, similar to prior. Timber Packer (topogram) images: No additional findings. IMPRESSION: 1. Mild bilateral hydroureteronephrosis to the pelvic brim without evidence of ureterolithiasis. 2. Indeterminate left renal lesion. Consider follow-up renal CT/MR for characterization. Grants Analyst: PSCB Transcribe Date/Time: Jun 11 2024 3:09A Dictated by : RAF AYALA MD This examination was interpreted and the report reviewed and electronically signed by: RAF AYALA MD on Jun 11 2024 3:40AM EST [id number] Normal [facility] CT BRAIN WO IVCONon 06-11-20 CT BRAIN WO IVCON * * *Final Report* * * DATE OF EXAM: Jun 11 2024 3:05AM [facility] 0504 - CT BRAIN WO IVCON [...] changes and small remote right occipital infarct. Grants Analyst: DEVEN Transcribe Date/Time: Jun 11 2024 3:05A [...] DON EDWARDS Indication: TIA Technologist: Dinora Fields [facility] Interpreting physician: Nando Costa MD [...] * * * Final * * * [facility] Image : [id number] [id number] Normal [facility] ED NOTEon 06-11-2024 ED NOTE HNO ID: [id number] Author: GISSELL CARRINGTON RN Service: Emergency Medicine Author Type: Registered Nurse Type: ED Notes Filed: 06/11/2024 05:58 Note Text: Gave report to assigned RN on 2099. Assigned RN is ready to receive patient at this time. Normal [facility] ED NOTE HNO ID: [id number] Author: GISSELL CARRINGTON RN Service: Emergency Medicine [...] Speci men Type: BLOOD SPECIMEN Ordering Facility: [facility] Address: [address] [place] [id number] Performed By: #### 2 4321-2, 83485-1, 71266-3 #### [facility] CLIA [id number] [address] HIGH SENSITIVITY TROPONIN T (THIRD) 3 HRS AFTER INITIALon 06-11-2024 Troponin T.cardiac High sensitivity method [Mass/Vol] 14 ng/L High <12 [facility] Comment on above: Order Comment: Speci men Type: BLOOD SPECIMEN Ordering Facility: [facility] Address: [address] [place] [address] Performed By: #### 2 4321-2, 23184-3, 81133-1 #### [facility] CLIA [id number] [address] HISTORY PHYSICALon HISTORY PHYSICAL HNO ID: [id number] Author: DON EDWARDS DO Service: Hospital Medicine Author Type: Physician Type: H&P Filed: 06/11/2024 14:14 Note Text: DEPARTMENT OF HOSPITAL MEDICINE HISTORY AND PHYSICAL EXAM SERVICE DATE: 06/11/2024 SERVICE TIME: 10:25 AM Primary Care Physician: Jared Evans MD, MD NIGHT AND WEEKEND COVERAGE: [place] COVERAGE: From 7am - 7pm, please call [phone] After 7pm, please call cross cover pager #[phone] Subjective CHIEF COMPLAINT: dizziness with vomiting, slurred [...] Use Topics Alcohol use: Not Currently Comment: [facility] Drug use: Never MEDICATIONS: Reviewed warfarin (COUMADIN) [...] Drains, and Airways Line Duration Peripheral 06/11/24 [facility] Left Antecubital 20 Gauge <1 day Drain Duration External Collection Device 06/11/24 0250 [facility] <1 day Reviewed lines and needs to be continued: REASONS: Telemetry DATA: Diagnostic tests reviewed for today's visit: Most recent lab (more content not included)... Normal [facility] MRA BRAIN WO IVCONon 024 MRA BRAIN WO IVCON * * *Final Report* * * DATE OF EXAM: Jun 11 2024 3:52PM [facility] 0272 - MRA BRAIN WO IVCON / PROCEDURE REASON: Neuro deficit, acute, stroke suspected * * * * Physician Interpretation * * * * EXAMINATION: MRI BRAIN WO IVCON, MRA BRAIN WO IVCON, MRA CAROTID WO IVCON CLINICAL HISTORY: Neuro deficit, acute, stroke suspected TECHNIQUE: Routine noncontrast MRI brain protocol including diffusion images. Intracranial and carotid 3D dknq-mz-mnysvt MRA. 3D maximum intensity projection images were [...] Patency: Bilateral Dominance: Left INTRACRANIAL MRA: The cowl[place] of [place] is patent without significant stenosis. 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 IMPRESSION: Motion degraded study. 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 No hemorrhagic transformation or significant mass effect. Unremarkable carotid MRA. 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 Grants Analyst: DEVEN Transcribe Date/Time: Jun 11 2024 3:54P [...] OF EXAM: Jun 11 2024 3:52PM [facility] 0275 - MRA CAROTID WO IVCON / PROCEDURE REASON: Neuro deficit, acute, stroke suspected * * * * Physician Interpretation * * * * EXAMINATION: MRI BRAIN WO IVCON, MRA BRAIN WO IVCON, MRA CAROTID WO IVCON CLINICAL HISTORY: Neuro deficit, acute, stroke suspected TECHNIQUE: Routine noncontrast MRI brain protocol including diffusion images. Intracranial and carotid 3D uagu-eq-iooxzy MRA. 3D maximum intensity projection images were [...] Patency: Bilateral Dominance: Left INTRACRANIAL MRA: The cow[place] of [place] is patent without significant stenosis. 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 IMPRESSION: Motion degraded study. 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 No hemorrhagic transformation or significant mass effect. Unremarkable carotid MRA. 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 Grants Analyst: PSCB Transcribe Date/Time: Jun 11 2024 3:54P [...] OF EXAM: Jun 11 2024 3:52PM [facility] 0294 - MRI BRAIN WO IVCON / PROCEDURE REASON: stroke * * * * Physician Interpretation * * * * EXAMINATION: MRI BRAIN WO IVCON, MRA BRAIN WO IVCON, MRA CAROTID WO IVCON CLINICAL HISTORY: Neuro deficit, acute, stroke suspected TECHNIQUE: Routine noncontrast MRI brain protocol including diffusion images. Intracranial and carotid 3D wobl-sz-ymshdt MRA. 3D maximum intensity projection images were [...] Patency: Bilateral Dominance: Left INTRACRANIAL MRA: The cowl[place] of [place] is patent without significant stenosis. 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 IMPRESSION: Motion degraded study. 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 No hemorrhagic transformation or significant mass effect. Unremarkable carotid MRA. 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 Grants [facility]st[facility] Transcribe Date/Time: Jun 11 2024 [...] Speci men Type: BLOOD SPECIMEN Ordering Facility: [facility] Address: [address] [place], [place] [id number] Result Comment: Mayra min K Antagonist (VKA) [...] Chest 2012, 141:7S-47S Daren RA, et al. [facility] 2017, 70: 252-289 Performed By: #### 2 4321-2, 73209-8, #### [facility] CLIA [id number] [address] [place] PT Coag (PPP) [Time] 12.6 s Normal 9.7-13.0 [facility] Comment on above: Order Comment: Speci men Type: BLOOD SPECIMEN Ordering Facility: [facility] Address: [address] [place] [address] Performed By: #### 2 4321-2, 18071-0, #### [facility] CLIA [id number] [address] [place] THERAPY NTon 06-11-2024 THERAPY NT HNO ID: [id number] Author: BASILIA MAGALLANES, RUTH-WEB MERCHANDISER Service: Speech/Swallow Author Type: Speech Language Pathologist Type: Therapy (PT/OT/Speech/Resp) Filed: 06/11/2024 09:44 Note Text: Speech Therapy Clinical Swallow Evaluation SERVICE DATE: 06/11/2024 SERVICE TIME: 16 to 0931 ROOM: [place] [address] IMPRESSION: Functional oropharyngeal phases of swallowing: without [...] Skilled Need Interventions Provided: Clinical Swallow Evaluation (33749) $ Clinical Swallow Evaluation (45326) Billed Units: 1 unit Training and Education [...] for this therapy evaluation/treatment. SIGNATURE: Basilia Magallanes CCC-WEB MERCHANDISER PATIENT NAME: Mel Castillo DATE: June 11, 2024 TIME: 9:39 AM Normal [facility] THERAPY NT HNO ID: [id number] Author: MEHREEN MANCERA, PT Service: Physical Therapy Author Type: Physical Therapist Type: Therapy (PT/OT/Speech/Resp) Filed: 06/11/2024 09:27 Note Text: Physical Therapy Evaluation Summary SERVICE DATE: 06/11/2024 SERVICE TIME: 804 to 841 ROOM: [place] [address] PT 6 Clicks Score: 18 DISCHARGE RECOMMENDATIONS [...] and signs-other TREATMENT INTERVENTIONS Evaluation, Canalith Repositioning (02413) Skilled Treatment Time (minutes): 37 $ Evaluation-Moderate (77298) Billed Units: 1 unit $ Canalith Repositioning (19960) Billed Units: 1 unit Repositioning maneuver for [...] due to blind L eye Positional Testing: Mansfield-Hallpike, Left, Horizontal Canals, Left Mansfield-Hallpike, Left: Note: pt with vertigo pattern of L posterior canal when tested in horizontal canal postion. L torsional upbeating nystagmus (very brisk) Mansfield-Hallpike, Right: Neg Horizontal Canals, Left: Pt with [...] Comment: Speci men Type: URINE SPECIMENOrdering Facility: [facility] Address: [address] [place] [address] Performed By: #### 2 4356-8 ####[facility] [id number] [address] [place] Clarity (Unsp spec) Clear Normal Clear [facility] Comment on above: Order Comment: Speci men Type: URINE SPECIMENOrdering Facility: [facility] Address: [address] [place] [address] Performed By: #### 2 4356-8 ####[facility] [id number] [address] [place] Color (U) Light Yellow Normal yellow [facility] Comment on above: Order Comment: Speci men Type: URINE SPECIMENOrdering Facility: [facility] Address: [address] [place] [address] Performed By: #### 2 4356-8 ####[facility] [id number] [address] [place] Glucose Test strip (U) [Mass/Vol] Negative Normal Trace, Negative [facility] Comment on above: Order Comment: Speci men Type: URINE SPECIMENOrdering Facility: [facility] Address: [address] [place] [address] Performed By: #### 2 4356-8 ####[facility] [id number] [address] [place] Hemoglobin Ql (U) Trace Normal Negative, Trace [facility] Comment on above: Order Comment: Speci men Type: URINE SPECIMENOrdering Facility: [facility] Address: [address] [place] [address] Performed By: #### 2 4356-8 ####[facility]IA [id number] [address] Ketones Ql (U) Negative Normal Negative, Trace [facility] Comment on above: Order Comment: Speci men Type: URINE SPECIMENOrdering Facility: [facility] Address: [address] [place] [address] Performed By: #### 2 4356-8 ####[facility]IA [id number] [address] Leukocyte esterase Test strip Ql (U) Negative Normal Negative, 25 Jose Luis/uL [facility] Comment on above: Order Comment: Speci men Type: URINE SPECIMENOrdering Facility: [facility] Address: [address] [place] [address] Performed By: #### 2 4356-8 ####[facility]IA [id number] [address] STATES [facility] Nitrite Ql (U) Negative Normal Negative [facility] Comment on above: Order Comment: Speci men Type: URINE SPECIMENOrdering Facility: [facility] Address: [address] [place] [address] Performed By: #### 2 4356-8 ####[facility]IA [id number] [address] [place] pH (U) [pH] High 5.0-8.0 [facility] Comment on above: Order Comment: Speci men Type: URINE SPECIMENOrdering Facility: [facility] Address: [address] [place] [address] Performed By: #### 2 4356-8 ####[facility]IA [id number] [address] Protein (U) [Mass/Vol] 1+ Abnormal Trace , Negative [facility] Comment on above: Order Comment: Speci men Type: URINE SPECIMENOrdering Facility: [facility] Address: [address] [place] [address] Performed By: #### 2 4356-8 ####[facility]IA [id number] [address] STATES [facility] RBC LM.HPF (Urine sed) [#/Area] 6-10 /HPF Abnormal 0-3 /HPF [facility] Comment on above: Order Comment: Speci men Type: URINE SPECIMENOrdering Facility: [facility] Address: [address] [place] [address] Performed By: #### 2 4356-8 ####[facility]CLIA [id number] [address] [place] Specific gravity (U) [Rel density] 1.039 High 1.005-1.030 [facility] Comment on above: Order Comment: Speci men Type: URINE SPECIMENOrdering Facility: [facility] Address: [address] [place] [address] Performed By: #### 2 4356-8 ####[facility]ORYCLIA [id number] [address] Urobilinogen Ql (U) Normal Normal Normal [facility] Comment on above: Order Comment: Speci men Type: URINE SPECIMENOrdering Facility: [facility] Address: [address] [place] [address] Performed By: #### 2 4356-8 ####[facility]ORYCLIA [id number] [address] STATES [facility] WBC LM.HPF (Urine sed) [#/Area] 0-5 /HPF Normal 0-5 /HPF [facility] Comment on above: Order Comment: Speci men Type: URINE SPECIMENOrdering Facility: [facility] Address: [address] [place] [address] Performed By: #### 2 4356-8 ####[facility]ORYCLIA [id number] [address] [place] aPTT PPPon 06-11-2024 aPTT Coag (PPP) [Time] 28.2 s Normal 23.0-32.4 [facility] Comment on above: Order Comment: Speci men Type: BLOOD SPECIMENOrdering Facility: [facility] Address: [address] [place] [address] Performed By: #### 1 4979-9 ####[facility]ORYCLIA [id number] [address] aPTT Coag (PPP) [Time] 28.9 s Normal 23.0-32.4 [facility] Comment on above: Order Comment: Speci men Type: BLOOD SPECIMEN Ordering Facility: [facility] Address: [address] [place] [address] Performed By: #### 2 4321-2, 39236-5, #### [facility] CLIA [id number] [address] CBC W Auto Differential pane l (Bld)on 06-10-2024 Basophils (Bld) [#/Vol] 0.04 10*3/uL Normal <0.11 [facility] Comment on above: Order Comment: Speci men Type: BLOOD SPECIMEN Ordering Facility: [facility] Address: [address] [place] [address] Performed By: #### 2 4321-2, 66952-8, #### [facility] CLIA [id number] [address] Basophils/100 WBC (Bld) 0.7 % Normal [facility] Comment on above: Order Comment: Speci men Type: BLOOD SPECIMEN Ordering Facility: [facility] Address: [address] [place] [address] Performed By: #### 2 4321-2, 20187-3, #### [facility] CLIA [id number] [address] Differential cell count method Nom (Bld) Auto Normal [facility] Comment on above: Order Comment: Speci men Type: BLOOD SPECIMEN Ordering Facility: [facility] Address: [address] [place] [address] Performed By: #### 2 4321-2, 54802-0, #### [facility] CLIA [id number] [address] [place] Eosinophils (Bld) [#/Vol] 10*3/uL Normal <0.46 [facility] Comment on above: Order Comment: Speci men Type: BLOOD SPECIMEN Ordering Facility: [facility] Address: [address] [place] [address] Performed By: #### 2 4321-2, 58323-5, #### [facility] CLIA [id number] [address] [place] Eosinophils/100 WBC (Bld) 0.2 % Normal [facility] Comment on above: Order Comment: Speci men Type: BLOOD SPECIMEN Ordering Facility: [facility] Address: [address] [place] [address] Performed By: #### 2 4320-2, 95575-7, #### [facility] CLIA [id number] [address] [place] Erythrocyte distribution width (RBC) [Ratio] 15.6 % High 11.5-15.0 [facility] Comment on above: Order Comment: Speci men Type: BLOOD SPECIMEN Ordering Facility: [facility] Address: [address] [place] [address] Performed By: #### 2 1-2, 10887-4, #### [facility] CLIA [id number] [address] [place] Hematocrit (Bld) [Volume fraction] 37.5 % Normal 36.0-46.0 [facility] Comment on above: Order Comment: Speci men Type: BLOOD SPECIMEN Ordering Facility: [facility] Address: [address] [place] [address] Performed By: #### 2 4321-2, 60705-8, #### [facility] CLIA [id number] [address] [place] Hemoglobin (Bld) [Mass/Vol] 11.4 g/dL Low 11.5-15.5 [facility] Comment on above: Order Comment: Speci men Type: BLOOD SPECIMEN Ordering Facility: [facility] Address: [address] [place] [address] Performed By: #### 2 4321-2, 78923-2, #### [facility] CLIA [id number] 1 [place] [address] [place] Immature granulocytes (Bld) [#/Vol] 10*3/uL Normal <0.10 [facility] Comment on above: Order Comment: Speci men Type: BLOOD SPECIMEN Ordering Facility: [facility] Address: [address] [place] [address] Performed By: #### 2 4321-2, 12889-3, #### [facility] CLIA [id number] [address] [place] Immature granulocytes/100 WBC (Bld) 0.4 % Normal [facility] Comment on above: Order Comment: Speci men Type: BLOOD SPECIMEN Ordering Facility: [facility] Address: [address] [place] [address] Performed By: #### 2 1-2, 14084-5, #### [facility] CLIA [id number] 1 [place] [address] [place] Lymphocytes (Bld) [#/Vol] 0.61 10*3/uL Low 1.00-4.00 [facility] Comment on above: Order Comment: Speci men Type: BLOOD SPECIMEN Ordering Facility: [facility] Address: [address] [place] [address] Performed By: #### 2 1-2, 06085-1, #### [facility] CLIA [id number] [address] [place] Lymphocytes/100 WBC (Bld) 10.8 % Normal [facility] Comment on above: Order Comment: Speci men Type: BLOOD SPECIMEN Ordering Facility: [facility] Address: [address] [place] [address] Performed By: #### 2 4321-2, 11255-4, #### [facility] CLIA [id number] [address] MCH (RBC) [Entitic mass] 26.2 pg Normal 26.0-34.0 [facility] Comment on above: Order Comment: Speci men Type: BLOOD SPECIMEN Ordering Facility: [facility] Address: [address] [place] [address] Performed By: #### 2 4321-2, 12401-0, #### [facility] CLIA [id number] [address] MCHC (RBC) [Mass/Vol] 30.4 g/dL Low 30.5-36.0 [facility] Comment on above: Order Comment: Speci men Type: BLOOD SPECIMEN Ordering Facility: [facility] Address: [address] [place] [address] Performed By: #### 2 4320-2, 27163-0, #### [facility] CLIA [id number] [address] MCV (RBC) [Entitic vol] 86.2 fL Normal 80.0-100.0 [facility] Comment on above: Order Comment: Speci men Type: BLOOD SPECIMEN Ordering Facility: [facility] Address: [address] [place] [address] Performed By: #### 2 1-2, 29097-9, #### [facility] CLIA [id number] [address] Monocytes (Bld) [#/Vol] 0.21 10*3/uL Normal <0.87 [facility] Comment on above: Order Comment: Speci men Type: BLOOD SPECIMEN Ordering Facility: [facility] Address: [address] [place] [address] Performed By: #### 2 4321-2, 49232-2, #### [facility] CLIA [id number] 1 [place] [address] [place] Monocytes/100 WBC (Bld) 3.7 % Normal [facility] Comment on above: Order Comment: Speci men Type: BLOOD SPECIMEN Ordering Facility: [facility] Address: [address] [place] [address] Performed By: #### 2 4321-2, 50432-8, #### [facility] CLIA [id number] 1 [place] [address] [place] Neutrophils (Bld) [#/Vol] 4.78 10*3/uL Normal 1.45-7.50 [facility] Comment on above: Order Comment: Speci men Type: BLOOD SPECIMEN Ordering Facility: [facility] Address: [address] [place] [address] Performed By: #### 2 1-2, 85088-5, #### [facility] CLIA [id number] 1 [place] [address] [place] Neutrophils/100 WBC (Bld) 84.2 % Normal [facility] Comment on above: Order Comment: Speci men Type: BLOOD SPECIMEN Ordering Facility: [facility] Address: [address] [place] [address] Performed By: #### 2 1-2, 24561-4, #### [facility] CLIA [id number] 1 [place] [address] [place] Nucleated RBC (Bld) [#/Vol] 10*3/uL Normal <0.01 [facility] Comment on above: Order Comment: Speci men Type: BLOOD SPECIMEN Ordering Facility: [facility] Address: [address] [place] [address] Performed By: #### 2 1-2, 39820-8, #### [facility] CLIA [id number] 1 [place] [address] [place] Nucleated RBC/100 WBC (Bld) [Ratio] 0.0 /100 WBC Normal [facility] Comment on above: Order Comment: Speci men Type: BLOOD SPECIMEN Ordering Facility: [facility] Address: [address] [place] [address] Performed By: #### 2 4321-2, 46930-2, #### [facility] CLIA [id number] [address] [place] Platelet mean volume (Bld) [Entitic vol] 9.4 fL Normal 9.0-12.7 [facility] Comment on above: Order Comment: Speci men Type: BLOOD SPECIMEN Ordering Facility: [facility] Address: [address] [place] [address] Performed By: #### 2 4321-2, 00122-1, #### [facility] CLIA [id number] [address] [place] Platelets (Bld) [#/Vol] 330 10*3/uL Normal 150-400 [facility] Comment on above: Order Comment: Speci men Type: BLOOD SPECIMEN Ordering Facility: [facility] Address: [address] [place] [address] Performed By: #### 2 1-2, 02619-9, #### [facility] CLIA [id number] 1 [place] [address] [place] RBC (Bld) [#/Vol] 4.35 10*6/uL Normal 3.90-5.20 [facility] Comment on above: Order Comment: Speci men Type: BLOOD SPECIMEN Ordering Facility: [facility] Address: [address] [place] [address] Performed By: #### 2 4321-2, 51182-2, #### [facility] CLIA [id number] 1 [place] [address] [place] WBC (Bld) [#/Vol] 5.67 10*3/uL Normal 3.70-11.00 [facility] Comment on above: Order Comment: Speci men Type: BLOOD SPECIMEN Ordering Facility: [facility] Address: [address] [place] [address] Performed By: #### 2 4321-2, 66621-5, 84371-0 #### [facility] CLIA [id number] [address] Comprehensive metabolic 2000 panelon 06-10-2024 Albumin [Mass/Vol] 4.2 g/dL Normal 3.9-4.9 [facility] Comment on above: Order Comment: Speci men Type: BLOOD SPECIMENOrdering Facility: [facility] Address: [address] [place] [address] Performed By: #### 3 016-3, 96300-4, 3024-7, 98708-4 ####[facility]IA [id number] [address] OF [facility] ALP [Catalytic activity/Vol] 99 U/L Normal 34-123 [facility] Comment on above: Order Comment: Speci men Type: BLOOD SPECIMENOrdering Facility: [facility] Address: [address] [place] [address] Performed By: #### 3 016-3, 35708-1, 3024-7, 43867-0 ####[facility]CLIA [id number] [address] OF [facility] ALT With P-5'-P [Catalytic activity/Vol] 8 U/L Normal 7-38 [facility] Comment on above: Order Comment: Speci men Type: BLOOD SPECIMENOrdering Facility: [facility] Address: [address] [place] [address] Performed By: #### 3 016-3, 81659-7, 3024-7, 88344-9 ####[facility]ORYCLIA [id number] [address] Anion gap [Moles/Vol] 12 mmol/L Normal 8-15 [facility] Comment on above: Order Comment: Speci men Type: BLOOD SPECIMENOrdering Facility: [facility] Address: [address] [place] [address] Performed By: #### 3 016-3, 20930-9, 3023-7, 63993-7 ####[facility]ORYCLIA [id number] [place] [address] [place] AST With P-5'-P [Catalytic activity/Vol] 12 U/L Low 13-35 [facility] Comment on above: Order Comment: Speci men Type: BLOOD SPECIMENOrdering Facility: [facility] Address: [address] [place] [address] Performed By: #### 3 016-3, 31446-0, 7, 11216-5 ####[facility]ORYCLIA [id number] [place] [address] [place] Bilirubin [Mass/Vol] 0.4 mg/dL Normal 0.2-1.3 [facility] Comment on above: Order Comment: Speci men Type: BLOOD SPECIMENOrdering Facility: [facility] Address: [address] [place] [address] Performed By: #### 3 016-3, 07964-6, 3024-01, 82708-9 ####[facility]ORYCLIA [id number] [place] [address] [place] Calcium [Mass/Vol] 9.5 mg/dL Normal 8.5-10.2 [facility] Comment on above: Order Comment: Speci men Type: BLOOD SPECIMENOrdering Facility: [facility] Address: [address] [place] [address] Performed By: #### 3 016-3, 74043-3, 7, 89925-7 ####[facility]ORYCLIA [id number] [place] [id number] [place] Chloride [Moles/Vol] 101 mmol/L Normal 98-107 [facility] Comment on above: Order Comment: Speci men Type: BLOOD SPECIMENOrdering Facility: [facility] Address: [address] [place] [address] Performed By: #### 3 016-3, 68391-1, 7, 16972-3 ####[facility]ORYCLIA [id number] [place] [address] [place] CO2 [Moles/Vol] 23 mmol/L Normal 22-30 [facility] Comment on above: Order Comment: Rhina mason Type: BLOOD SPECIMENOrdering Facility: [facility] Address: [address] [place] [address] Performed By: #### 3 016-3, 67739-7, 3024-7, 57636-0 ####[facility]ORYCLIA [id number] [address] STATES OF [facility] Creatinine [Mass/Vol] 0.87 mg/dL Normal 0.58-0.96 [facility] Comment on above: Order Comment: Speci men Type: BLOOD SPECIMENOrdering Facility: [facility] Address: [address] [place] [address] Performed By: #### 3 016-3, 40880-9, 7, 72918-8 ####[facility] [id number] [address] Creatinine and Glomerular filtration rate.predicted panel (S/P/Bld) 66 mL/min/1.73m??? Normal >=60 [facility] Comment on above: Order Comment: Rhina mason Type: BLOOD SPECIMENOrdering Facility: [facility] Address: [address] [place] [address] Result Comment: Isa mated Glomerular Filtration Rate [...] actual GFR. Performed By: #### 3 016-3, 91871-2, 3024-7, 24657-0 ####[facility]ORYCLIA [id number] [place] [address] [place] Glucose [Mass/Vol] 157 mg/dL High 74-99 [facility] Comment on above: Order Comment: Speci men Type: BLOOD SPECIMENOrdering Facility: [facility] Address: [address] [id number] Result Comment: The [place] Diabetes Association (ADA) [...] 2016.39(Suppl 1). Performed By: #### 3 016-3, 16766-4, 3024-7, 57113-7 ####[facility]ORYCLIA [id number] [place] [address] [place] Potassium [Moles/Vol] 4.3 mmol/L Normal 3.7-5.1 [facility] Comment on above: Order Comment: Rhina mason Type: BLOOD SPECIMENOrdering Facility: [facility] Address: [address] [place], [place] [address] Performed By: #### 3 016-3, 93850-7, 4-7, 58214-3 ####[facility]ORYCLIA [id number] [place] [address] [place] Protein [Mass/Vol] 7.1 g/dL Normal 6.3-8.0 [facility] Comment on above: Order Comment: Rhina mason Type: BLOOD SPECIMENOrdering Facility: [facility] Address: [address] [place], [place] [address] Performed By: #### 3 016-3, 52560-2, 3023-7, 76615-6 ####[facility]ORYCLIA [id number] [place] [address] [place] Sodium [Moles/Vol] 136 mmol/L Normal 136-144 [facility] Comment on above: Order Comment: Speci men Type: BLOOD SPECIMENOrdering Facility: [facility] Address: [address] [place], [place] [address] Performed By: #### 3 016-3, 26271-7, 3024-7, 35628-4 ####[facility]ATORYCLIA [id number] [place] [address] [place] [facility] Urea nitrogen [Mass/Vol] 14 mg/dL Normal 7- [facility] Comment on above: Order Comment: Speci men Type: BLOOD SPECIMENOrdering Facility: [facility] Address: [address] [place], [place] [address] Performed By: #### 3 016-3, 76294-1, 3024-7, 11846-3 ####[facility]ORYCLIA [id number] [place] [id number] [place] ECG COMPLETEon 06-10-2024 ECG COMPLETE Ventricular Rate : 6 4 BPM QRS Duration : 90 ms Q-T Interval : 424 ms QTC Calculation(Bazett) : 437 ms Calculated R [place] : 56 degrees Calculated T [place] : 20 degrees ATRIAL FIBRILLATION ABNORMAL ECG NO PREVIOUS ECGS AVAILABLE Confirmed by SAKINA MELLO MD ([id number]) on 12/07/2024 10:44:28 PM NAME : MEL GUADARRAMA PID : [id number] : 1940 Gender : Female Race : ORD : [id number] Procedure Date : Jun 10 2024 23:35:14 Edit Date : Dec 07 2024 22:44:32 Diagnosis: ATRIAL FIBRILLATION ABNORMAL ECG NO PREVIOUS ECGS AVAILABLE Confirmed by SAKINA MELLO MD ([id number]) on 12/07/2024 10:44:28 PM Test Reason : Chest Pain Location : 4 : [facility] EM Overread By : SAKINA MELLO MD Edited By : SAKINA MELLO MD Referred By : , Acquired by : REGAN RODRIGES [facility] ED NOTEon 06-10-2024 ED NOTE HNO ID: [id number] Author: DAMARIS HERNANDEZ RN Service: ? Author Type: Registered Nurse Type: ED Notes Filed: 06/10/2024 23:06 Note Text: Bed: 36-ED Expected date: Expected time: Means of arrival: Comments: RAMESH Barrett [facility] ED PROV NOTEon 06-10-2024 ED PROV NOTE HNO ID: [id number] Author: THOMAS SERNA MD Service: Emergency Medicine [...] [facility] PROV NOTE HNO ID: [id number] Author: THOMAS SERNA MD Service: Emergency Medicine [...] Comment: Rhina mason Type: BLOOD SPECIMENOrdering Facility: [facility] Address: [address] [place] [id number] Performed By: #### L [id number] ####[facility]ATORYCLIA [id number] [place] [address] [place] HbA1c (Bld)on 06-10-2024 Average glucose Estimated from glycated hemoglobin (Bld) [Mass/Vol] 120 mg/dL Normal [facility] Comment on above: Order Comment: Rhina mason Type: BLOOD SPECIMEN Ordering Facility: [facility] Address: [address] [place] [address] Result Comment: eAG: (Estimated average glucose) is a calculated value from HgbA1c and is international account representative of the average blood glucose level in the last 2-3 month period. Performed By: #### 2 4321-2, 21158-6, #### [facility] CLIA [id number] [address] OF [facility] HbA1c (Bld) [Mass fraction] 5.8 % High 4.3-5.6 [facility] Comment on above: Order Comment: Rhina mason Type: BLOOD SPECIMEN Ordering Facility: [facility] Address: [address] [place] [address] Result Comment: Amer ican Diabetes Association guidelines indicate that patients with HgbA1c in the range 5.7-6.4% are at increased risk for development of diabetes, and intervention by lifestyle modification may be beneficial. HgbA1c greater or equal to 6.5% is considered diagnostic of diabetes. Performed By: #### 2 4321-2, 88538-6, #### [facility] CLIA [id number] [address] STATES OF [facility] Lipid 1996 panelon 4 Cholesterol [Mass/Vol] 227 mg/dL High <200 [facility] Comment on above: Order Comment: Rhina mason Type: BLOOD SPECIMENOrdering Facility: [facility] Address: [address] [place] [address] Result Comment: <200 mg/dL, Desirable 200-239 mg/dL, Borderline high >239 mg/dL, High Performed By: #### 3 016-3, 35788-9, 3024-7, 88857-4 ####[facility]ORYCLIA [id number] [address] STATES OF [facility] Cholesterol in HDL [Mass/Vol] 78 mg/dL Normal >39 [facility] Comment on above: Order Comment: Rhina mason Type: BLOOD SPECIMENOrdering Facility: [facility] Address: [address] [place] [address] Result Comment: 40-5 9 mg/dL, Acceptable >59 mg/dL, High: Negative risk factor for coronary heart disease <40 mg/dL, Low: Positive risk factor for coronary heart disease Performed By: #### 3 016-3, 44868-6, 302-7, 79739-6 ####[facility]ORYCLIA [id number] [address] STATES OF [facility] Cholesterol in LDL [Mass/Vol] 139 mg/dL High <100 [facility] Comment on above: Order Comment: Speci men Type: BLOOD SPECIMENOrdering Facility: [facility] Address: [address] [place] [address] Result Comment: <100 mg/dL, Optimal 100-129 mg/dL, Near optimal/above optimal 130-159 mg/dL, Borderline high 160-189 mg/dL, High >189 mg/dL, Very high Secondary prevention optimal LDL Cholesterol levels are recommended to be < 70 mg/dL Performed By: #### 3 016-3, 61606-7, 3023-7, 56560-4 ####[facility]ATORYCLIA [id number] [address] Cholesterol in LDL/Cholesterol in HDL [Mass ratio] 1.78 {ratio} Normal <2.54 [facility] Comment on above: Order Comment: Speci men Type: BLOOD SPECIMENOrdering Facility: [facility] Address: [address] [place] [address] Result Comment: Refe rence: 1. National Cholesterol Education Program ATP III Guideline At-A-Glance Quick Desk Reference: National Heart, Lung, and Blood [place]. National Institutes of Health. 2001: NIH Publication No. 01-3305. 2. An International Atherosclerosis Society position paper: global recommendations for the management of dyslipidemia: executive summary, Atherosclerosis. 2014: 232(2):410-413. Performed By: #### 3 016-3, 22315-8, 3024-7, 80828-7 ####[facility]ATORYCLIA [id number] [address] [place] Cholesterol in VLDL [Mass/Vol] 10 mg/dL Normal <30 [facility] Comment on above: Order Comment: Speci men Type: BLOOD SPECIMENOrdering Facility: [facility] Address: [address] [place] [address] Performed By: #### 3 016-3, 92015-7, 3023-7, 21879-8 ####[facility]ATORYCLIA [id number] [address] Cholesterol non HDL [Mass/Vol] 149 mg/dL High <130 [facility] Comment on above: Order Comment: Speci men Type: BLOOD SPECIMENOrdering Facility: [facility] Address: [address] [place] [address] Result Comment: <130 mg/dL, Optimal 130-159 mg/dL, Near optimal/above optimal 160-189 mg/dL, Borderline high 190-219 mg/dL, High >219 mg/dL, Very high Secondary prevention optimal non HDL Cholesterol levels are recommended to be <100 mg/dL Performed By: #### 3 016-3, 44943-5, 7, 72569-4 ####[facility]ATORYCLIA [id number] [address] Cholesterol.total/Pastora sterol in HDL [Mass ratio] 2.91 {ratio} Normal <5.10 [facility] Comment on above: Order Comment: Speci men Type: BLOOD SPECIMENOrdering Facility: [facility] Address: [address] [place] [address] Performed By: #### 3 016-3, 97911-4, 7, 58654-5 ####[facility]ORATORYCLIA [id number] [address] [place] FASTING TIME Normal [facility] Comment on above: Order Comment: Speci men Type: BLOOD SPECIMENOrdering Facility: [facility] Address: [address] [place] [address] Result Comment: Unkn own Performed By: #### 3 016-3, 66392-0, 7, 29198-5 ####[facility]ORATORYCLIA [id number] [address] [place] Triglyceride [Mass/Vol] 49 mg/dL Normal <150 [facility] Comment on above: Order Comment: Speci men Type: BLOOD SPECIMENOrdering Facility: [facility] Address: [address] [place] [address] Result Comment: <150 mg/dL, Normal 150-199 mg/dL, Borderline high 200-499 mg/dL, High >499 mg/dL, Very high Performed By: #### 3 016-3, 30218-3, 3024-7, 05491-7 ####[facility]ORATORYCLIA [id number] [address] OF [facility] PT panel Coag (PPP)on 2023 INR Coag (PPP) [Relative time] 1.3 {INR} Normal 0.9-1.3 [facility] Comment on above: Order Comment: Rhina mason Type: BLOOD SPECIMENOrdering Facility: [facility] Address: [address] [place] [address] Result Comment: Mayra min K Antagonist (VKA) [...] 70: 252-289 Performed By: #### 3 4528-0 ####[facility]ORATORYCLIA [id number] [place] [id number] [place] PT Coag (PPP) [Time] 13.2 s High 9.7-13.0 [facility] Comment on above: Order Comment: Rhina mason Type: BLOOD SPECIMENOrdering Facility: [facility] Address: [address] [place] [address] Performed By: #### 3 4528-0 ####[facility]ORATORYCLIA [id number] [address] OF [facility] T4 Free SerPl-mCncon 024 Free T4 [Mass/Vol] 1.3 ng/dL Normal 0.9-1.7 [facility] Comment on above: Order Comment: Speci men Type: BLOOD SPECIMENOrdering Facility: [facility] Address: [address] [place] [address] Performed By: #### 3 016-3, 14581-5, 3024-7, 01467-8 ####[facility]ORATORYCLIA [id number] [address] TSH SerPl-aCncon 06-10-2024 TSH Qn 1.620 m[IU]/L Normal 0.270-4.200 [facility] Comment on above: Order Comment: Speci men Type: BLOOD SPECIMENOrdering Facility: [facility] Address: [address] [place] [address] Performed By: #### 3 016-3, 73507-7, 3024-7, 92096-3 ####[facility]ORATORYCLIA [id number] [address] [facility] 36on 06-04-2024 36 Normal [facility] 36on 06-01-2024 36 Normal [facility] Progress Noteon 05-22-2024 Progress Note Normal [facility] PT Coag (Bld) [Time]on 05-21 INR Coag (PPP) [Relative time] 2.8 {INR} Abnormal 0.9 - 1.1 [facility] Interpretation and review of laboratory results Abnormal [facility] Progress Noteon 05-21-2024 Progress Note Normal [facility] Progress Note INR reported on b y Christin with [facility]. Christin can be reached at [phone] with questions. Normal [facility] Protime-INRon 05-21-2024 PT Coag (Bld) [Time] 33.9 s Abnormal 9.0 - 12.0 [facility] Heart TransthoracicOrdere d By: Davian Landrum on 05-14-2024 Ao Root Index 1.63 cm/m2 [facility] Work Phone: Aortic Arch 2.6 cm [facility] Work Phone: Aortic Root 2.8 cm [facility] Work Phone: Aortic Sinus Valsalva 2.8 cm [facility] Work Phone: Aortic Sinus Valsalva Index 1.63 cm/m2 [facility] Work Phone: Ascending Aorta 2.7 cm [facility] Work Phone: Ascending Aorta Index 1.57 cm/m2 [facility] Work Phone: AV Area by Peak Velocity 1.4 cm2 [facility] Work Phone: AV Area by VTI 1.4 cm2 [facility] Work Phone: AV Mean Gradient 3 mmHg [facility] Work Phone: AV Mean Velocity 0.9 m/s [facility] Work Phone: AV Peak Gradient 7 mmHg [facility] Work Phone: AV Peak Velocity 1.3 m/s [facility] Work Phone: AV Velocity Ratio 0.62 [facility] Work Phone: AV VTI 30 cm [facility] Work Phone: POLA/BSA Peak Velocity 0.8 cm2/m2 [facility] Work Phone: POLA/BSA VTI 0.8 cm2/m2 [facility] Work Phone: E/E' Lateral 14 [facility] Work Phone: E/E' Ratio (Averaged) 18 [facility] Work Phone: E/E' Septal 22 [facility] Work Phone: EF BP 61 % 55 - 100 % [facility] [employer] Work Phone: Est. RA Pressure 3 mmHg [facility] Work Phone: [phone] Fractional Shortening 2D 30 % 28 - 44 % [facility] [employer] Work Phone: [phone] Global Longitudinal Strain -15.3 % [facility] [employer] Work Phone: Interpretation and review of laboratory results Abnormal [facility] [employer] Work Phone: IVC Diameter 1.8 cm [facility] [employer] Work Phone: [phone] IVSd 1 cm Abnormal 0.6 - 0.9 cm [facility] [employer] Work Phone: [phone] LA Diameter 4.1 cm [facility] [employer] Work Phone: LA Size Index 2.38 cm/m2 [facility] [employer] Work Phone: LA Volume 2C 63 mL Abnormal 22 - 52 mL [facility] [employer] Work Phone: LA Volume 4C 80 mL Abnormal 22 - 52 mL [facility] [employer] Work Phone: LA Volume A/L 76 mL [facility] Work Phone: LA Volume BP 72 mL Abnormal 22 - 52 mL [facility] [employer] Work Phone: LA Volume Index 2C 37 mL/m2 Abnormal 16 - 34 mL/m2 [facility] [employer] Work Phone: LA Volume Index 4C 47 mL/m2 Abnormal 16 - 34 mL/m2 [facility] [employer] Work Phone: LA Volume Index A/L 44 mL/m2 16 - 34 mL/m2 [facility] [employer] Work Phone: LA Volume Index BP 42 ml/m2 Abnormal 16 - 34 ml/m2 [facility] [employer] Work Phone: LA/AO Root Ratio 1.46 [facility] Work Phone: LV E' Lateral Velocity 11 cm/s [facility] [employer] Work Phone: LV E' Septal Velocity 7 cm/s [facility] [employer] Work Phone: LV EDV A2C 45 mL [facility] [employer] Work Phone: LV EDV A4C 48 mL [facility] Work Phone: LV EDV BP 47 mL Abnormal 56 - 104 mL [facility] Work Phone: LV EDV Index A2C 26 mL/m2 [facility] Work Phone: LV EDV Index A4C 28 mL/m2 [facility] Work Phone: LV EDV Index BP 27 mL/m2 [facility] Work Phone: LV Ejection Fraction A2C 68 % [facility] Work Phone: LV Ejection Fraction A4C 55 % [facility] Work Phone: LV ESV A2C 14 mL [facility] Work Phone: LV ESV A4C 21 mL [facility] Work Phone: LV ESV BP 18 mL Abnormal 19 - 49 mL [facility] Work Phone: LV ESV Index A2C 8 mL/m2 [facility] Work Phone: LV ESV Index A4C 12 mL/m2 [facility] Work Phone: LV ESV Index BP 10 mL/m2 [facility] Work Phone: LV Mass 2D 142.5 g 67 - 162 g [facility] Work Phone: LV Mass 2D Index 82.8 g/m2 43 - 95 g/m2 [facility] Work Phone: LV RWT Ratio 0.47 [facility] Work Phone: LVIDd 4.3 cm 3.9 - 5.3 cm [facility] Work Phone: [phone] LVIDd Index 2.5 cm/m2 [facility] Work Phone: LVIDs 3 cm [facility] Work Phone: LVIDs Index 1.74 cm/m2 [facility] Work Phone: LVOT Area 2.5 cm2 [facility] Work Phone: LVOT Cardiac Output 3.2 liter/mi nut e [facility] Work Phone: LVOT Diameter 1.8 cm [facility] Work Phone: LVOT Mean Gradient 1 mmHg [facility] Work Phone: LVOT Peak Gradient 2 mmHg [facility] Work Phone: LVOT Peak Velocity 0.8 m/s [facility] Work Phone: LVOT Stroke Volume Index 25.1 mL/m2 [facility] Work Phone: LVOT SV 43.2 ml [facility] Work Phone: [phone] LVOT VTI 17 cm [facility] Work Phone: [phone] LVOT:AV VTI Index 0.57 [facility] Work Phone: [phone] LVPWd 1 cm Abnormal 0.6 - 0.9 cm [facility] Work Phone: [phone] MV [facility] Velocity 0.41 [facility] Work Phone: MV Area by PHT 3.3 cm2 [facility] Work Phone: MV Area by VTI 1.2 cm2 [facility] Work Phone: MV E Velocity 1.54 m/s [facility] Work Phone: MV E Wave Deceleration Time 180.9 ms [facility] Work Phone: MV E/A 3.76 [facility] Work Phone: MV Max Velocity 1.7 m/s [facility] Work Phone: MV Mean Gradient 4 mmHg [facility] Work Phone: MV Mean Velocity 0.9 m/s [facility] Work Phone: MV Peak Gradient 11 mmHg [facility] Work Phone: MV PHT 66.9 ms [facility] Work Phone: MV VTI 35.1 cm [facility] Work Phone: MV:LVOT VTI Index 2.06 [facility] Work Phone: [phone] RA Area 4C 55.1 mL [facility] Work Phone: [phone] RV Basal Dimension 2.7 cm [facility] Work Phone: [phone] RV Free Wall Peak S' 11 cm/s [facility] Work Phone: [phone] RV Longitudinal Dimension 4.9 cm [facility] Work Phone: [phone] RV Mid Dimension 2.1 cm [facility] Work Phone: [phone] RVSP 54 mmHg [facility] Work Phone: [phone] Sinotubular Junction 2.7 cm [facility] Work Phone: [phone] TAPSE 1.5 cm Abnormal 1.7 cm [facility] Work Phone: [phone] TR Max Velocity 3.56 m/s [facility] Work Phone: [phone] TR Peak Gradient 51 mmHg [facility] Work Phone: [phone] TR Peak Velocity PISA 3.6 m/s [facility] Work Phone: [phone] TR VTI 120.8 cm [facility] Work Phone: [phone] TV EROA 0.2 cm2 [facility] Work Phone: TV Nyquist Velocity 39 cm/s [facility] Work Phone: [phone] [facility] Work Phone: Heart Transthoracicon [...] time] 2.7 {INR} Abnormal 0.9 - 1.1 [facility] Interpretation and review of laboratory results Abnormal [facility] Progress Noteon 05-09-2024 Progress Note Graciela from [facility] call ed in results. Normal [facility] Progress Note Normal [facility] Protime-INRon 05-09-2024 PT Coag (Bld) [Time] 32.1 s Abnormal 9.0 - 12.0 [facility] PT Coag (Bld) [Time]on 05-01 INR Coag (PPP) [Relative time] 2.7 {INR} Abnormal 0.9 - 1.1 [facility] Interpretation and review of laboratory results Abnormal [facility] Progress Noteon 05-01-2024 Progress Note Normal [facility] Progress Note Tia- [facility]- [phone] Normal [facility] Protime-INRon 05-01-2024 PT Coag (Bld) [Time] 32.4 s Abnormal 9.0 - 12.0 [facility] 36on 04-27-2024 36 Pt requested refill on warfarin 5mg. Sent to [facility]. Receipt confirmed by pharmacy. Normal [facility] Progress Noteon 04-27-2024 Progress Note Normal [facility] Progress Note Tia- [facility]- [phone] Normal [facility] Progress Noteon 04-25-2024 Progress Note Normal [facility] Progress Noteon 04-23-2024 Progress Note Normal [facility] Progress Note Christin [facility] called any questions or concerns [phone]. Normal [facility] PT Coag (Bld) [Time]on 04-19 INR Coag (PPP) [Relative time] 2.1 {INR} Abnormal 0.9 - 1.1 [facility] Interpretation and review of laboratory results Abnormal [facility] Progress Noteon 04-19-2024 Progress Note Normal [facility] Progress Note Graciela with [facility] repo rts INR on Graciela can be reached at [phone] with any questions. Normal [facility] Protime-INRon 04-19-2024 PT Coag (Bld) [Time] 24.9 s Abnormal 9.0 - 12.0 [facility] Progress Noteon 04-16-2024 Progress Note Christin- [facility]- [phone] Normal [facility] Progress Note Normal [facility] Progress Noteon 04-14-2024 Progress Note Placed new order for POCT INR, [facility] had not received. Normal [facility] [id number] 04-13-2024 [id number] Normal [facility] APTTon 04-13-2024 aPTT Coag (Bld) [Time] 132.2 s Critically high 20.0-30. 5 [facility] Comment on above: Result Comment: ORDE R COMMENTS:NOTE: The therapeutic time for Heparin anticoagulation, based on Xa activity inhibition, is an APTT of 46-80 seconds. Performed By: #### L [id number], [id number] ####Drapery Counselor: VELMA VALADEZ ([phone])[facility])[address] [place] [address] BASIC METABOLIC PANELon 09-2 Anion gap [Moles/Vol] 2 mmol/L Low 3-13 [facility] Comment on above: Performed By: #### L [id number] ####Drapery Counselor: VELMA VALADEZ ([phone])[facility] ([facility])[address] [place] [address] Calcium [Mass/Vol] 9.0 mg/dL Normal 8.4-10.4 [facility] Comment on above: Performed By: #### L [id number] ####Drapery Counselor: VELMA VALADEZ ([phone])[facility] ([facility])[address] [place] [address] Chloride [Moles/Vol] 108 mmol/L High 98-107 [facility] Comment on above: Performed By: #### L [id number] ####Drapery Counselor: VELAM VALADEZ ([phone])[facility] ([facility])[address] [place] [address] CO2 [Moles/Vol] 25 mmol/L Normal 22-30 [facility] Comment on above: Performed By: #### L [id number] ####Drapery Counselor: VELMA VALADEZ ([phone])[facility])[address] [place] [address] Creatinine [Mass/Vol] 1.00 mg/dL Normal 0.52-1.04 [facility] Comment on above: Performed By: #### L [id number] ####Drapery Counselor: VELMA VALADEZ ([phone])[facility])[address] [place] [address] GLOMERULAR FILTRATION RATE ML/MIN/1.73 SQ M.PREDICTED 55.7 mL/min/1.73m*2 Low >60.0 [facility] Comment on above: Result Comment: Calc ulation based on the Chronic Kidney Disease Epidemiology Collaboration (CKD-EPI) equation refit without adjustment for race Performed By: #### L [id number] ####Drapery Counselor: VELMA VALADEZ ([phone])[facility] ([facility])[address] [place] [address] Glucose [Mass/Vol] 98 mg/dL Normal 70-100 [facility] Comment on above: Performed By: #### L [id number] ####Drapery Counselor: VELMA VALADEZ ([phone])[facility] ([facility])[address] [place] [address] Potassium [Moles/Vol] 4.3 mmol/L Normal 3.5-5.1 [facility] Comment on above: Performed By: #### L [id number] ####Drapery Counselor: VELMA VALADEZ ([phone])[facility] ([facility])[address] [place] [address] Sodium [Moles/Vol] 135 mmol/L Normal 135-145 [facility] Comment on above: Performed By: #### L [id number] ####Drapery Counselor: VELMA VALADEZ ([phone])[facility] ([facility])[address] [place] [address] Urea nitrogen [Mass/Vol] 18 mg/dL High 7-17 [facility] Comment on above: Performed By: #### L [id number] ####Drapery Counselor: VELMA VALADEZ ([phone])[facility] ([facility])[address] [place] [address] Basic metabolic 1998 panelon 04-13-2024 Anion gap [Moles/Vol] 2 mmol/L Low 3 - 13 mmol/L [facility] Calcium [Mass/Vol] 9.0 mg/dL 8.4 - 10. 4 mg/dL [facility] Chloride [Moles/Vol] 108 mmol/L High 98 - 10 7 mmol/L [facility] CO2 [Moles/Vol] 25 mmol/L 22 - 30 mmol/L [facility] Creatinine [Mass/Vol] 1.00 mg/dL 0.52 - 1.04 mg/dL [facility] GFR/1.73 sq M.predicted (S/P/Bld) [Vol rate/Area] 55.7 mL/min Low - PINF [facility] Comment on above: Calculation based on the Chronic Kidney Disease Epidemiology Collaboration (CKD-EPI) equation refit without adjustment for race Glucose [Mass/Vol] 98 mg/dL 70 - 100 mg/dL [facility] Interpretation and review of laboratory results Abnormal [facility] Potassium [Moles/Vol] 4.3 mmol/L 3.5 - 5.1 mmol/L [facility] Sodium [Moles/Vol] 135 mmol/L 135 - 145 mmol/L [facility] Urea nitrogen [Mass/Vol] 18 mg/dL High 7 - 17 mg/dL [facility] CARECOORDon 04-13-[address] [facility] Normal [facility] Normal [facility] CBC W Auto Differential pane l (Bld)on 04-13-2024 Basophils (Bld) [#/Vol] 0.0 10*3/uL 0.0 - 0.2 10*3/uL [facility] Basophils/100 WBC (Bld) 0.7 % 0.0 - 2.0 % [facility] Eosinophils (Bld) [#/Vol] 0.1 10*3/uL 0.0 - 0.5 10*3/uL [facility] Eosinophils/100 WBC (Bld) 2.6 % 0.0 - 6.0 % [facility] Erythrocyte distribution width (RBC) [Ratio] 14.5 % 11.5 - 15.0 % [facility] Hematocrit (Bld) [Volume fraction] 26.3 % Low 35.0 - 47.0 % [facility] Hemoglobin (Bld) [Mass/Vol] 8.6 g/dL Low 11.7 - 16.0 g/dL [facility] Immature granulocytes (Bld) [#/Vol] 0.0 10*3/uL NINF - 0.1 10*3/uL [facility] Immature granulocytes/100 WBC (Bld) 0.2 % 0.0 - 2.0 % [facility] Interpretation and review of laboratory results Abnormal [facility] Lymphocytes (Bld) [#/Vol] 1.4 10*3/uL 1.0 - 4.3 10*3/uL [facility] Lymphocytes/100 WBC (Bld) 33.5 % 15.0 - 45.0 % [facility] MCH (RBC) [Entitic mass] 29.8 pg 26.0 - 34.0 pg [facility] MCHC (RBC) [Mass/Vol] 32.7 % 30.5 - 36.0 % [facility] MCV (RBC) [Entitic vol] 91.0 fL 77.0 - 99.0 fL [facility] Monocytes (Bld) [#/Vol] 0.5 10*3/uL 0.0 - 0.9 10*3/uL [facility] Monocytes/100 WBC (Bld) 11.3 % 5.0 - 13.0 % [facility] Neutrophils (Bld) [#/Vol] 2.2 10*3/uL 1.8 - 7.5 10*3/uL [facility] Neutrophils/100 WBC (Bld) 51.7 % 38.0 - 82.0 % [facility] Nucleated RBC/100 WBC (Bld) [Ratio] 0.0 % [facility] Platelet mean volume (Bld) [Entitic vol] 9.4 fL 9.0 - 12.7 fL [facility] Platelets (Bld) [#/Vol] 317 10*3/uL 140 - 440 10*3/uL [facility] RBC (Bld) [#/Vol] 2.89 10*6/uL Low 3.80 - 5.2 0 10*6/uL [facility] WBC (Bld) [#/Vol] 4.2 10*3/uL 3.6 - 10.7 10*3/uL [facility] CBC WITH AUTO DIFFERENTIALon 04-13-2024 Basophils (Bld) [#/Vol] 0.0 10*3/uL Normal 0.0-0.[address] [facility] Comment on above: Performed By: #### L [id number] ####Drapery Counselor: VELMA VALADEZ ([phone])[facility] ([facility])[address] [place] [address] Basophils/100 WBC (Bld) 0.7 % Normal 0.0-2.0 [facility] Comment on above: Performed By: #### L [id number] ####Drapery Counselor: VELMA VALADEZ ([id number])[facility] [address] Eosinophils (Bld) [#/Vol] 0.1 10*3/uL Normal 0.0-0.[address] [facility] Comment on above: Performed By: #### L [id number] ####Drapery Counselor: VELMA VALADEZ ([phone])[facility])[address] [place] [address] Eosinophils/100 WBC (Bld) 2.6 % Normal 0.0-6.[address] [facility] Comment on above: Performed By: #### L [id number] ####Drapery Counselor: VELMA VALADEZ ([phone])[address] Erythrocyte distribution width (RBC) [Ratio] 14.5 % Normal 11.5-15.[address] [facility] Comment on above: Performed By: #### L [id number] ####Drapery Counselor: VELMA VALADEZ ([phone])[facility])[address] [place] [address] Hematocrit (Bld) [Volume fraction] 26.3 % Low 35.0-47.0 [facility] Comment on above: Performed By: #### L [id number] ####Drapery Counselor: VELMA VALADEZ ([id number])[address] Hemoglobin (Bld) [Mass/Vol] 8.6 g/dL Low 11.7-16.[address] [facility] Comment on above: Performed By: #### L [id number] ####Drapery Counselor: VELMA VALADEZ ([id number])[facility])[address] [place] [address] IMMATURE GRANS % 0.2 % Normal 0.0-2.0 [facility] Comment on above: Performed By: #### L [id number] ####Drapery Counselor: VELMA VALADEZ ([id number])[address] IMMATURE GRANS ABSOLUTE 0.0 10*3/uL Normal <0.[address] [facility] Comment on above: Performed By: #### L [id number] ####Drapery Counselor: VELMA VALADEZ ([phone])[facility])[address] [place] [address] Lymphocytes (Bld) [#/Vol] 1.4 10*3/uL Normal 1.0-4.[address] [facility] Comment on above: Performed By: #### L [id number] ####Drapery Counselor: VELMA VALADEZ ([phone])[facility])[address] [place] [address] Lymphocytes/100 WBC (Bld) 33.5 % Normal 15.0-45.[address] [facility] Comment on above: Performed By: #### L [id number] ####Drapery Counselor: VELMA VALADEZ ([phone])[facility])[address] [place] [address] MCH (RBC) [Entitic mass] 29.8 pg Normal 26.0-34.[address] [facility] Comment on above: Performed By: #### L [id number] ####Drapery Counselor: VELMA VALADEZ ([phone])[facility])[address] [place] [address] MCHC 32.7 % Normal 30.5-36.[address] [facility] Comment on above: Performed By: #### L [id number] ####Drapery Counselor: VELMA VALADEZ ([phone])[facility])[address] [place] [address] MCV (RBC) [Entitic vol] 91.0 fL Normal 77.0-99.0 [facility] Comment on above: Performed By: #### L [id number] ####Drapery Counselor: VELMA VALADEZ ([phone])[facility])[address] [place] [address] Monocytes (Bld) [#/Vol] 0.5 10*3/uL Normal 0.0-0.9 [facility] Comment on above: Performed By: #### L [id number] ####Drapery Counselor: VELMA VALADEZ ([phone])[facility] [place] [address] Monocytes/100 WBC (Bld) 11.3 % Normal 5.0-13.0 [facility] Comment on above: Performed By: #### L [id number] ####Drapery Counselor: VELMA VALADEZ ([id number])[facility] ([facility])[address] [place] [address] NEUTROPHILS ABSOLUTE 2.2 10*3/uL Normal 1.8-7.5 [facility] Comment on above: Performed By: #### L [id number] ####Drapery Counselor: VELMA VALADEZ ([phone])[facility] ([facility])[address] [place] [address] Neutrophils/100 WBC (Bld) 51.7 % Normal 38.0-82.0 [facility] Comment on above: Performed By: #### L [id number] ####Drapery Counselor: VELMA VALADEZ ([phone])[facility] ([facility])[address] [place] [address] NRBC 0.0 /100 WBCs Normal 0.0-2.0 [facility] Comment on above: Performed By: #### L [id number] ####Drapery Counselor: VELMA VALADEZ ([phone])[facility] ([facility])[address] [place] [address] Platelet mean volume (Bld) [Entitic vol] 9.4 fL Normal 9.0-12.[address] [facility] Comment on above: Performed By: #### L [id number] ####Drapery Counselor: VELMA VALADEZ ([id number])[facility] ([facility])[address] [place] [address] [place] Platelets (Bld) [#/Vol] 317 10*3/uL Normal 140-440 [facility] Comment on above: Performed By: #### L [id number] ####Drapery Counselor: VELMA VALADEZ ([phone])[facility] ([facility])[address] [place] [address] RBC (Bld) [#/Vol] 2.89 10*6/uL Low 3.80-5.20 [facility] Comment on above: Performed By: #### L [id number] ####Drapery Counselor: VELMA VALADEZ ([phone])[facility])[address] [place] [address] WBC (Bld) [#/Vol] 4.2 10*3/uL Normal 3.6-10.7 [facility] Comment on above: Performed By: #### L [id number] ####Drapery Counselor: VELMA VALADEZ ([phone])[address] IDNon 04-13-2024 IDN Normal [facility] Laboratory - Coagulationon 0 04-13-2024 PT Coag (Bld) [Time] 24.2 s High 9.0 - 1 2.0 s [facility] Nursing Noteon 04-13-2024 Nursing Note AVS explained. Discharged patient on stable condition. Normal [facility] Nursing Note Instructed patient o n warfarin dosing, she will take 7.5mg tomorrow, and 5mg Tuesday, and then we will check INR with home care on Tuesday as instructed. Normal [facility] PROTHROMBIN TIMEon INR Coag (PPP) [Relative time] 2.3 {INR} High 0.9-1.1 [facility] Comment on above: [...] Myocardial Infarction Performed By: #### L [id number], [id number] ####Drapery Counselor: VELMA VALADEZ ([phone])[facility])[address] [place] [address] PT Coag (PPP) [Time] 24.2 s High 9.0-12.0 [facility] Comment on above: Performed By: #### L [id number], [id number] ####Drapery Counselor: VELMA VALADEZ ([phone])[facility] ([facility])[address] [place] [address] PT Coag (Bld) [Time]on 04-13 INR Coag (PPP) [Relative time] 2.3 {INR} High 0.9 - 1.1 [facility] Comment on above: Recommended Anticoag ulant [...] Interpretation and review of laboratory results Abnormal [facility] Progress Noteon 04-13-2024 Progress Note Normal [facility] Progress Note Normal [facility] Progress Note Normal [facility] aPTT Coag (Bld) [Time]Ordere d By: Melany Tejeda on 04-13-2024 aPTT Coag (PPP) [Time] 132.2 s Critically high 20 .0 - 30.5 s [facility] Interpretation and review of laboratory results Abnormal [facility] NOTE: The therapeuti c time for Heparin anticoagulation, based on Xa activity inhibition, is an APTT of 46-80 seconds. [facility] BASIC METABOLIC PANELon 03-19 Anion gap [Moles/Vol] 3 mmol/L Normal 3-13 [facility] Comment on above: Performed By: #### L [id number] ####Drapery Counselor: VELMA VALADEZ ([phone])[facility] ([facility])[address] [place] [address] Calcium [Mass/Vol] 9.3 mg/dL Normal 8.4-10.4 [facility] Comment on above: Performed By: #### L AB15 ####Drapery Counselor: VELMA VALADEZ ([phone])[facility] ([facility])[address] [place] [address] Chloride [Moles/Vol] 108 mmol/L High 98-107 [facility] Comment on above: Performed By: #### L AB15 ####Drapery Counselor: VELMA VALADEZ ([phone])[facility] ([facility])[address] [place] [address] CO2 [Moles/Vol] 24 mmol/L Normal 22-30 [facility] Comment on above: Performed By: #### L AB15 ####Drapery Counselor: VELMA VALADEZ ([phone])[facility])[address] [place] [address] Creatinine [Mass/Vol] 0.99 mg/dL Normal 0.52-1.04 [facility] Comment on above: Performed By: #### L AB15 ####Drapery Counselor: VELMA VALADEZ ([phone])[facility] ([facility])[address] [place] [address] GLOMERULAR FILTRATION RATE ML/MIN/1.73 SQ M.PREDICTED 56.3 mL/min/1.73m*2 Low >60.0 [facility] Comment on above: Result Comment: Calc ulation based on the Chronic Kidney Disease Epidemiology Collaboration (CKD-EPI) equation refit without adjustment for race Performed By: #### L AB15 ####Drapery Counselor: VELMA VALADEZ ([phone])[facility] ([facility])[address] [place] [address] Glucose [Mass/Vol] 101 mg/dL High 70-100 [facility] Comment on above: Performed By: #### L AB15 ####Drapery Counselor: VELMA VALADEZ ([phone])[facility])[address] [place] [address] Potassium [Moles/Vol] 3.9 mmol/L Normal 3.5-5.1 [facility] Comment on above: Performed By: #### L AB15 ####Drapery Counselor: VELMA VALADEZ ([phone])[facility] ([facility])[address] [place] [address] Sodium [Moles/Vol] 135 mmol/L Normal 135-145 [facility] Comment on above: Performed By: #### L AB15 ####Drapery Counselor: VELMA VALADEZ ([phone])[facility] ([facility])[address] [place] [address] Urea nitrogen [Mass/Vol] 16 mg/dL Normal 7-17 [facility] Comment on above: Performed By: #### L AB15 ####Drapery Counselor: VELMA VALADEZ ([phone])[facility] ([facility])[address] [place] [address] Basic metabolic 1998 panelon 04-12-2024 Anion gap [Moles/Vol] 3 mmol/L 3 - 13 mmol/L [facility] Calcium [Mass/Vol] 9.3 mg/dL 8.4 - 10. 4 mg/dL [facility] Chloride [Moles/Vol] 108 mmol/L High 98 - 10 7 mmol/L [facility] CO2 [Moles/Vol] 24 mmol/L 22 - 30 mmol/L [facility] Creatinine [Mass/Vol] 0.99 mg/dL 0.52 - 1.04 mg/dL [facility] GFR/1.73 sq M.predicted (S/P/Bld) [Vol rate/Area] 56.3 mL/min Low - PINF [facility] Comment on above: Calculation based on the Chronic Kidney Disease Epidemiology Collaboration (CKD-EPI) equation refit without adjustment for race Glucose [Mass/Vol] 101 mg/dL High 70 - 100 mg/dL [facility] Interpretation and review of laboratory results Abnormal [facility] Potassium [Moles/Vol] 3.9 mmol/L 3.5 - 5.1 mmol/L [facility] Sodium [Moles/Vol] 135 mmol/L 135 - 145 mmol/L [facility] Urea nitrogen [Mass/Vol] 16 mg/dL 7 - 17 mg/dL [facility] CARECOORDon 04-12-2024 CARECOORD Normal [facility] CBC W Auto Differential pane l (Bld)on 04-12-2024 Basophils (Bld) [#/Vol] 0.0 10*3/uL 0.0 - 0.2 10*3/uL [facility] Basophils/100 WBC (Bld) 0.5 % 0.0 - 2.0 % [facility] Eosinophils (Bld) [#/Vol] 0.1 10*3/uL 0.0 - 0.5 10*3/uL [facility] Eosinophils/100 WBC (Bld) 2.4 % 0.0 - 6.0 % [facility] Erythrocyte distribution width (RBC) [Ratio] 14.8 % 11.5 - 15.0 % [facility] Hematocrit (Bld) [Volume fraction] 28.3 % Low 35.0 - 47.0 % [facility] Hemoglobin (Bld) [Mass/Vol] 9.3 g/dL Low 11.7 - 16.0 g/dL [facility] Immature granulocytes (Bld) [#/Vol] 0.0 10*3/uL NINF - 0.1 10*3/uL [facility] Immature granulocytes/100 WBC (Bld) 0.2 % 0.0 - 2.0 % [facility] Interpretation and review of laboratory results Abnormal [facility] Lymphocytes (Bld) [#/Vol] 1.4 10*3/uL 1.0 - 4.3 10*3/uL [facility] Lymphocytes/100 WBC (Bld) 33.0 % 15.0 - 45.0 % [facility] MCH (RBC) [Entitic mass] 30.4 pg 26.0 - 34.0 pg [facility] MCHC (RBC) [Mass/Vol] 32.9 % 30.5 - 36.0 % [facility] MCV (RBC) [Entitic vol] 92.5 fL 77.0 - 99.0 fL [facility] Monocytes (Bld) [#/Vol] 0.5 10*3/uL 0.0 - 0.9 10*3/uL [facility] Monocytes/100 WBC (Bld) 11.9 % 5.0 - 13.0 % [facility] Neutrophils (Bld) [#/Vol] 2.1 10*3/uL 1.8 - 7.5 10*3/uL [facility] Neutrophils/100 WBC (Bld) 52.0 % 38.0 - 82.0 % [facility] Nucleated RBC/100 WBC (Bld) [Ratio] 0.0 % [facility] Platelet mean volume (Bld) [Entitic vol] 9.5 fL 9.0 - 12.7 fL [facility] Platelets (Bld) [#/Vol] 307 10*3/uL 140 - 440 10*3/uL [facility] RBC (Bld) [#/Vol] 3.06 10*6/uL Low 3.80 - 5.2 0 10*6/uL [facility] WBC (Bld) [#/Vol] 4.1 10*3/uL 3.6 - 10.7 10*3/uL [facility] CBC WITH AUTO DIFFERENTIALon 04-12-2024 Basophils (Bld) [#/Vol] 0.0 10*3/uL Normal 0.0-0.2 [facility] Comment on above: Performed By: #### L [id number] ####Drapery Counselor: VELMA VALADEZ ([phone])[facility])[address] [place] [address] Basophils/100 WBC (Bld) 0.5 % Normal 0.0-2.0 [facility] Comment on above: Performed By: #### L [id number] ####Drapery Counselor: VELMA VALADEZ ([phone])[facility])[address] [place] [address] Eosinophils (Bld) [#/Vol] 0.1 10*3/uL Normal 0.0-0.5 [facility] Comment on above: Performed By: #### L [id number] ####Drapery Counselor: VELMA VALADEZ ([phone])[facility] ([facility])[address] [place] [address] [place] Eosinophils/100 WBC (Bld) 2.4 % Normal 0.0-6.0 [facility] Comment on above: Performed By: #### L [id number] ####Drapery Counselor: VELMA VALADEZ ([phone])[facility])[address] [place] [address] Erythrocyte distribution width (RBC) [Ratio] 14.8 % Normal 11.5-15.0 [facility] Comment on above: Performed By: #### L [id number] ####Drapery Counselor: VELMA VALADEZ ([phone])[address] Hematocrit (Bld) [Volume fraction] 28.3 % Low 35.0-47.0 [facility] Comment on above: Performed By: #### L [id number] ####Drapery Counselor: VELMA VALADEZ ([phone])[facility])[address] [place] [address] Hemoglobin (Bld) [Mass/Vol] 9.3 g/dL Low 11.7-16.0 [facility] Comment on above: Performed By: #### L [id number] ####Drapery Counselor: VELMA VALADEZ ([phone])[facility])[address] [place] [address] IMMATURE GRANS % 0.2 % Normal 0.0-2.0 [facility] Comment on above: Performed By: #### L [id number] ####Drapery Counselor: VELMA VALADEZ ([phone])[address] IMMATURE GRANS ABSOLUTE 0.0 10*3/uL Normal <0.1 [facility] Comment on above: Performed By: #### L [id number] ####Drapery Counselor: VELMA VALADEZ ([phone])[facility])[address] [place] [address] Lymphocytes (Bld) [#/Vol] 1.4 10*3/uL Normal 1.0-4.3 [facility] Comment on above: Performed By: #### L [id number] ####Drapery Counselor: VELMA VALADEZ ([phone])[address] Lymphocytes/100 WBC (Bld) 33.0 % Normal 15.0-45.0 [facility] Comment on above: Performed By: #### L [id number] ####Drapery Counselor: VELMA [phone])[facility] ([facility])[address] [place] [address] MCH (RBC) [Entitic mass] 30.4 pg Normal 26.0-34.0 [facility] Comment on above: Performed By: #### L [id number] ####Drapery Counselor: VELMA VALADEZ ([phone])[facility])[address] [place] [address] MCHC 32.9 % Normal 30.5-36.0 [facility] Comment on above: Performed By: #### L [id number] ####Drapery Counselor: VELMA VALADEZ ([phone])[facility])[address] [place] [address] MCV (RBC) [Entitic vol] 92.5 fL Normal 77.0-99.0 S [facility] Comment on above: Performed By: #### L [id number] ####Drapery Counselor: VELMA VALADEZ ([phone])[facility] ([facility])[address] [place] [address] Monocytes (Bld) [#/Vol] 0.5 10*3/uL Normal 0.0-0.9 [facility] Comment on above: Performed By: #### L [id number] ####Drapery Counselor: VELMA VALADEZ ([phone])[facility])[address] [place] [address] Monocytes/100 WBC (Bld) 11.9 % Normal 5.0-13.0 [facility] Comment on above: Performed By: #### L [id number] ####Drapery Counselor: VELMA VALADEZ ([phone])[facility])[address] [place] [address] NEUTROPHILS ABSOLUTE 2.1 10*3/uL Normal 1.8-7.5 [facility] Comment on above: Performed By: #### L [id number] ####Drapery Counselor: VELMA VALADEZ ([phone])[facility])[address] [place] [address] Neutrophils/100 WBC (Bld) 52.0 % Normal 38.0-82.0 [facility] Comment on above: Performed By: #### L [id number] ####Drapery Counselor: VELMA VALADEZ ([phone])[facility] ([facility])[address] [place] [address] NRBC 0.0 /100 WBCs Normal 0.0-2.0 [facility] Comment on above: Performed By: #### L [id number] ####Drapery Counselor: VELMA VALADEZ ([phone])[facility] ([facility])[address] [place] [address] Platelet mean volume (Bld) [Entitic vol] 9.5 fL Normal 9.0-12.7 [facility] Comment on above: Performed By: #### L [id number] ####Drapery Counselor: VELMA VALADEZ ([phone])[facility] ([facility])[address] [place] [address] Platelets (Bld) [#/Vol] 307 10*3/uL Normal 140-440 [facility] Comment on above: Performed By: #### L [id number] ####Drapery Counselor: VELMA VALADEZ ([phone])[facility] ([facility])[address] [place] [address] RBC (Bld) [#/Vol] 3.06 10*6/uL Low 3.80-5.20 [facility] Comment on above: Performed By: #### L [id number] ####Drapery Counselor: VELMA VALADEZ ([phone])[facility] ([facility])[address] [place] [address] WBC (Bld) [#/Vol] 4.1 10*3/uL Normal 3.6-10.7 [facility] Comment on above: Performed By: #### L [id number] ####Drapery Counselor: VELMA VALADEZ ([phone])[facility] ([facility])[address] [place] [address] [place] IDNon 04-12-2024 IDN Normal [facility] IDN Normal [facility] Laboratory - Coagulationon 0 04-12-2024 PT Coag (Bld) [Time] 20.3 s High 9.0 - 1 2.0 s [facility] PROTHROMBIN TIMEon INR Coag (PPP) [Relative time] 1.9 {INR} High 0.9-1.1 [facility] Comment on above: [...] Myocardial Infarction Performed By: #### [place] [id number] ####Drapery Counselor: VELMA VALADEZ ([phone])[facility])[address] [place] [address] PT Coag (PPP) [Time] 20.3 s High 9.0-12.0 [facility] Comment on above: Performed By: #### [place] AB320 ####Drapery Counselor: VELMA VALADEZ ([phone])[address] PT Coag (Bld) [Time]on 04-12 INR Coag (PPP) [Relative time] 1.9 {INR} High 0.9 - 1.1 [facility] Comment on above: Recommended Anticoag ulant [...] Interpretation and review of laboratory results Abnormal [facility] Progress Noteon 04-12-2024 Progress Note Normal [facility] Progress Note Normal [facility] APTTon 04-11-2024 aPTT Coag (Bld) [Time] 62.7 s High 20.0-30.5 [facility] Comment on above: Result Comment: BUBBA Garcia COMMENTS:NOTE: The therapeutic time for Heparin anticoagulation, based on Xa activity inhibition, is an APTT of 46-80 seconds. Performed By: #### L [id number] ####Drapery Counselor: VELMA VALADEZ ([phone])[facility] ([facility])[address] [place] [address] aPTT Coag (Bld) [Time] 69.0 s High 20.0-30.5 [facility] Comment on above: Result Comment: BUBBA Garcia COMMENTS:NOTE: The therapeutic time for Heparin anticoagulation, based on Xa activity inhibition, is an APTT of 46-80 seconds. Performed By: #### L [id number], [id number] ####Drapery Counselor: VELMA VALADEZ ([phone])[facility] ([facility])[address] [place] [address] BASIC METABOLIC PANELon 09- Anion gap [Moles/Vol] 4 mmol/L Normal 3-13 [facility] Comment on above: Performed By: #### L AB15 ####Drapery Counselor: VELMA VALADEZ ([phone])[facility] ([facility])[address] [place] [address] Calcium [Mass/Vol] 8.8 mg/dL Normal 8.4-10.4 [facility] Comment on above: Performed By: #### L AB15 ####Drapery Counselor: VELMA VALADEZ ([phone])[facility] [place] [address] [place] Chloride [Moles/Vol] 108 mmol/L High 98-107 [facility] Comment on above: Performed By: #### L AB15 ####Drapery Counselor: VELMA VALADEZ ([phone])[facility] ([facility])[address] [place] [address] CO2 [Moles/Vol] 22 mmol/L Normal 22-30 [facility] Comment on above: Performed By: #### L AB15 ####Drapery Counselor: VELMA VALADEZ ([phone])[facility])[address] [place] [address] Creatinine [Mass/Vol] 1.01 mg/dL Normal 0.52-1.04 [facility] Comment on above: Performed By: #### L AB15 ####Drapery Counselor: VELMA VALADEZ ([phone])[facility])[address] [place] [address] GLOMERULAR FILTRATION RATE ML/MIN/1.73 SQ M.PREDICTED 55.0 mL/min/1.73m*2 Low >60.0 [facility] Comment on above: Result Comment: Calc ulation based on the Chronic Kidney Disease Epidemiology Collaboration (CKD-EPI) equation refit without adjustment for race Performed By: #### L AB15 ####Drapery Counselor: VELMA VALADEZ ([phone])[facility])[address] [place] [address] Glucose [Mass/Vol] 112 mg/dL High 70-100 [facility] Comment on above: Performed By: #### L AB15 ####Drapery Counselor: VELMA VALADEZ ([phone])[facility])[address] [place] [address] Potassium [Moles/Vol] 4.0 mmol/L Normal 3.5-5.1 [facility] Comment on above: Performed By: #### L AB15 ####Drapery Counselor: VELMA VALADEZ ([phone])[facility])[address] [place] [address] [place] Sodium [Moles/Vol] 134 mmol/L Low 135-145 [facility] Comment on above: Performed By: #### L AB15 ####Drapery Counselor: VELMA VALADEZ ([phone])[facility])[address] [place] [address] Urea nitrogen [Mass/Vol] 16 mg/dL Normal 7-17 [facility] Comment on above: Performed By: #### L AB15 ####Drapery Counselor: VELMA VALADEZ ([phone])[facility] ([address] Basic metabolic 1998 panelon 04-11-2024 Anion gap [Moles/Vol] 4 mmol/L 3 - 13 mmol/L [facility] Calcium [Mass/Vol] 8.8 mg/dL 8.4 - 10. 4 mg/dL [facility] Chloride [Moles/Vol] 108 mmol/L High 98 - 10 7 mmol/L [facility] CO2 [Moles/Vol] 22 mmol/L 22 - 30 mmol/L [facility] Creatinine [Mass/Vol] 1.01 mg/dL 0.52 - 1.04 mg/dL [facility] GFR/1.73 sq M.predicted (S/P/Bld) [Vol rate/Area] 55.0 mL/min Low - PINF [facility] Comment on above: Calculation based on the Chronic Kidney Disease Epidemiology Collaboration (CKD-EPI) equation refit without adjustment for race Glucose [Mass/Vol] 112 mg/dL High 70 - 100 mg/dL [facility] Interpretation and review of laboratory results Abnormal [facility] Potassium [Moles/Vol] 4.0 mmol/L 3.5 - 5.1 mmol/L [facility] Sodium [Moles/Vol] 134 mmol/L Low 135 - 145 mmol/L [facility] Urea nitrogen [Mass/Vol] 16 mg/dL 7 - 17 mg/dL [facility] CARECOORDon 04-11-2024 CARECOHANOVER Normal [facility] CBC W Auto Differential pane l (Bld)on 04-11-2024 Basophils (Bld) [#/Vol] 0.0 10*3/uL 0.0 - 0.2 10*3/uL [facility] Basophils/100 WBC (Bld) 0.9 % 0.0 - 2.0 % [facility] Eosinophils (Bld) [#/Vol] 0.1 10*3/uL 0.0 - 0.5 10*3/uL [facility] Eosinophils/100 WBC (Bld) 2.0 % 0.0 - 6.0 % [facility] Erythrocyte distribution width (RBC) [Ratio] 14.8 % 11.5 - 15.0 % [facility] Hematocrit (Bld) [Volume fraction] 24.6 % Low 35.0 - 47.0 % [facility] Hemoglobin (Bld) [Mass/Vol] 8.3 g/dL Low 11.7 - 16.0 g/dL [facility] Immature granulocytes (Bld) [#/Vol] 0.0 10*3/uL NINF - 0.1 10*3/uL [facility] Immature granulocytes/100 WBC (Bld) 0.2 % 0.0 - 2.0 % [facility] Interpretation and review of laboratory results Abnormal [facility] Lymphocytes (Bld) [#/Vol] 1.4 10*3/uL 1.0 - 4.3 10*3/uL [facility] Lymphocytes/100 WBC (Bld) 31.9 % 15.0 - 45.0 % [facility] MCH (RBC) [Entitic mass] 30.5 pg 26.0 - 34.0 pg [facility] MCHC (RBC) [Mass/Vol] 33.7 % 30.5 - 36.0 % [facility] MCV (RBC) [Entitic vol] 90.4 fL 77.0 - 99.0 fL [facility] Monocytes (Bld) [#/Vol] 0.5 10*3/uL 0.0 - 0.9 10*3/uL [facility] Monocytes/100 WBC (Bld) 11.2 % 5.0 - 13.0 % [facility] Neutrophils (Bld) [#/Vol] 2.4 10*3/uL 1.8 - 7.5 10*3/uL [facility] Neutrophils/100 WBC (Bld) 53.8 % 38.0 - 82.0 % [facility] Nucleated RBC/100 WBC (Bld) [Ratio] 0.0 % [facility] [employer] Platelet mean volume (Bld) [Entitic vol] 10.0 fL 9.0 - 12.7 fL [facility] Platelets (Bld) [#/Vol] 244 10*3/uL 140 - 440 10*3/uL [facility] RBC (Bld) [#/Vol] 2.72 10*6/uL Low 3.80 - 5.2 0 10*6/uL [facility] WBC (Bld) [#/Vol] 4.5 10*3/uL 3.6 - 10.7 10*3/uL [facility] CBC WITH AUTO DIFFERENTIALon 04-11-2024 Basophils (Bld) [#/Vol] 0.0 10*3/uL Normal 0.0-0.2 [facility] Comment on above: Performed By: #### L [id number] ####Drapery Counselor: VELMA VALADEZ ([phone])[facility] ([facility])[address] [place] [address] Basophils/100 WBC (Bld) 0.9 % Normal 0.0-2.0 [facility] Comment on above: Performed By: #### L [id number] ####Drapery Counselor: VELMA VALADEZ ([phone])[facility])[address] [place] [address] Eosinophils (Bld) [#/Vol] 0.1 10*3/uL Normal 0.0-0.5 [facility] Comment on above: Performed By: #### L [id number] ####Drapery Counselor: VELMA VALADEZ ([phone])[facility] ([facility])[address] [place] [address] Eosinophils/100 WBC (Bld) 2.0 % Normal 0.0-6.0 [facility] Comment on above: Performed By: #### L [id number] ####Drapery Counselor: VELMA VALADEZ ([phone])[facility])[address] [place] [address] Erythrocyte distribution width (RBC) [Ratio] 14.8 % Normal 11.5-15.0 [facility] Comment on above: Performed By: #### L [id number] ####Drapery Counselor: VELMA VALADEZ ([phone])[facility])[address] [place] [address] Hematocrit (Bld) [Volume fraction] 24.6 % Low 35.0-47.0 [facility] Comment on above: Performed By: #### L [id number] ####Drapery Counselor: VELMA VALADEZ ([phone])[facility])[address] [place] [address] [place] Hemoglobin (Bld) [Mass/Vol] 8.3 g/dL Low 11.7-16.0 [facility] Comment on above: Performed By: #### L [id number] ####Drapery Counselor: VELMA VALADEZ ([phone])[facility])[address] [place] [address] IMMATURE GRANS % 0.2 % Normal 0.0-2.0 [facility] Comment on above: Performed By: #### L [id number] ####Drapery Counselor: VELMA VALADEZ ([phone])[facility])[address] [place] [address] IMMATURE GRANS ABSOLUTE 0.0 10*3/uL Normal <0.1 [facility] Comment on above: Performed By: #### L [id number] ####Drapery Counselor: VELMA VALADEZ ([phone])[facility])[address] [place] [address] Lymphocytes (Bld) [#/Vol] 1.4 10*3/uL Normal 1.0-4.3 [facility] Comment on above: Performed By: #### L [id number] ####Drapery Counselor: VELMA VALADEZ ([phone])[facility])[address] [place] [address] Lymphocytes/100 WBC (Bld) 31.9 % Normal 15.0-45.0 [facility] Comment on above: Performed By: #### L [id number] ####Drapery Counselor: VELMA VALADEZ ([phone])[facility])[address] [place] [address] MCH (RBC) [Entitic mass] 30.5 pg Normal 26.0-34.0 [facility] Comment on above: Performed By: #### L [id number] ####Drapery Counselor: VELMA VALADEZ ([phone])[facility])[address] [place] [address] MCHC 33.7 % Normal 30.5-36.0 [facility] Comment on above: Performed By: #### L [id number] ####Drapery Counselor: VELMA VALADEZ ([phone])[facility] ([facility])[address] [place] [address] MCV (RBC) [Entitic vol] 90.4 fL Normal 77.0-99.0 [facility] Comment on above: Performed By: #### L [id number] ####Drapery Counselor: VELMA VALADEZ ([phone])[facility] ([facility])[address] [place] [address] Monocytes (Bld) [#/Vol] 0.5 10*3/uL Normal 0.0-0.9 [facility] Comment on above: Performed By: #### L [id number] ####Drapery Counselor: VELMA VALADEZ ([phone])[facility] ([facility])[address] [place] [address] Monocytes/100 WBC (Bld) 11.2 % Normal 5.0-13.0 [facility] Comment on above: Performed By: #### L [id number] ####Drapery Counselor: VELMA VALADEZ ([phone])[facility] ([facility])[address] [place] [address] NEUTROPHILS ABSOLUTE 2.4 10*3/uL Normal 1.8-7.5 [facility] Comment on above: Performed By: #### L [id number] ####Drapery Counselor: VELMA VALADEZ ([phone])[facility] ([facility])[address] [place] [address] Neutrophils/100 WBC (Bld) 53.8 % Normal 38.0-82.0 [facility] Comment on above: Performed By: #### L [id number] ####Drapery Counselor: VELMA VALADEZ ([phone])[facility] ([facility])[address] [place] [address] NRBC 0.0 /100 WBCs Normal 0.0-2.0 [facility] Comment on above: Performed By: #### L [id number] ####Drapery Counselor: VELMA VALADEZ ([phone])[facility] ([facility])[address] [place] [address] Platelet mean volume (Bld) [Entitic vol] 10.0 fL Normal 9.0-12.7 [facility] Comment on above: Performed By: #### L [id number] ####Drapery Counselor: VELMA VALADEZ ([phone])[facility])[address] [place] [address] Platelets (Bld) [#/Vol] 244 10*3/uL Normal 140-440 [facility] Comment on above: Performed By: #### L [id number] ####Drapery Counselor: VELMA VALADEZ ([phone])[facility] ([facility])[address] [place] [address] RBC (Bld) [#/Vol] 2.72 10*6/uL Low 3.80-5.20 [facility] Comment on above: Performed By: #### L [id number] ####Drapery Counselor: VELMA VALADEZ ([phone])[facility] ([facility])[address] [place] [address] WBC (Bld) [#/Vol] 4.5 10*3/uL Normal 3.6-10.7 [facility] Comment on above: Performed By: #### L [id number] ####Drapery Counselor: VELMA VALADEZ ([phone])[facility])[address] [place] [address] IDNon 04-11-2024 IDN Normal [facility] IDN Normal [facility] Laboratory - Coagulationon 0 04-11-2024 PT Coag (Bld) [Time] 20.9 s High 9.0 - 1 2.0 s [facility] No Panel Informationon 04-11 Interpretation and review of laboratory results Abnormal [facility] PROTHROMBIN TIMEon INR Coag (PPP) [Relative time] 1.9 {INR} High 0.9-1.1 [facility] Comment on above: [...] Myocardial Infarction Performed By: #### [place] [id number], [id number] ####Drapery Counselor: VELMA VALADEZ ([phone])[facility])[address] [place] [address] PT Coag (PPP) [Time] 20.9 s High 9.0-12.0 [facility] [employer] [facility] Comment on above: Performed By: #### [place] [id number], [id number] ####Drapery Counselor: VELMA VALADEZ ([phone])[facility] ([facility])[address] [place] [address] PT Coag (Bld) [Time]on 04-11 INR Coag (PPP) [Relative time] 1.9 {INR} High 0.9 - 1.1 [facility] Comment on above: Recommended Anticoag ulant [...] Infarction Progress Noteon 04-11-2024 [facility] [employer] [facility] Progress Note Normal [facility] Progress Note Normal [facility] [employer] [facility] Progress Note Normal [facility] [employer] [facility] aPTT Coag (Bld) [Time]on aPTT Coag (PPP) [Time] 62.7 s High 20.0 - 30.5 s [facility] Interpretation and review of laboratory results Abnormal [facility] NOTE: The therapeuti c time for Heparin anticoagulation, based on Xa activity inhibition, is an APTT of 46-80 seconds. [facility] aPTT Coag (PPP) [Time] 69.0 s High 20.0 - 30.5 s [facility] NOTE: The therapeuti c time for Heparin anticoagulation, based on Xa activity inhibition, is an APTT of 46-80 seconds. [facility] APTTon 04-10-2024 aPTT Coag (Bld) [Time] 59.0 s High 20.0-30.5 [facility] Comment on above: Result Comment: BUBBA Garcia COMMENTS:NOTE: The therapeutic time for Heparin anticoagulation, based on Xa activity inhibition, is an APTT of 46-80 seconds. Performed By: #### L [id number] ####Drapery Counselor: VELMA VALADEZ ([phone])[address] aPTT Coag (Bld) [Time] 77.3 s High 20.0-30.5 [facility] Comment on above: Result Comment: BUBBA Garcia COMMENTS:NOTE: The therapeutic time for Heparin anticoagulation, based on Xa activity inhibition, is an APTT of 46-80 seconds. Performed By: #### L [id number], [id number] ####Drapery Counselor: VELMA VALADEZ ([phone])[address] BASIC METABOLIC PANELon 03-19 Anion gap [Moles/Vol] 3 mmol/L Normal 3-13 [facility] Comment on above: Performed By: #### L AB15 ####Drapery Counselor: VELMA VALADEZ ([phone])[facility])[address] [place] [address] Calcium [Mass/Vol] 9.0 mg/dL Normal 8.4-10.4 [facility] Comment on above: Performed By: #### L AB15 ####Drapery Counselor: VELMA VALADEZ ([phone])[facility])[address] [place] [address] Chloride [Moles/Vol] 111 mmol/L High 98-107 [facility] Comment on above: Performed By: #### L AB15 ####Drapery Counselor: VELMA VALADEZ ([phone])[facility] [place] [address] CO2 [Moles/Vol] 21 mmol/L Low 22-30 [facility] Comment on above: Performed By: #### L AB15 ####Drapery Counselor: VELMA VALADEZ ([phone])[facility] ([facility])[address] [place] [address] Creatinine [Mass/Vol] 1.00 mg/dL Normal 0.52-1.04 [facility] Comment on above: Performed By: #### L AB15 ####Drapery Counselor: VELMA VALADEZ ([phone])[facility] ([facility])[address] [place] [address] GLOMERULAR FILTRATION RATE ML/MIN/1.73 SQ M.PREDICTED 55.7 mL/min/1.73m*2 Low >60.0 [facility] Comment on above: Result Comment: Calc ulation based on the Chronic Kidney Disease Epidemiology Collaboration (CKD-EPI) equation refit without adjustment for race Performed By: #### L AB15 ####Drapery Counselor: VELMA VALADEZ ([phone])[facility] ([facility])[address] [place] [address] Glucose [Mass/Vol] 101 mg/dL High 70-100 [facility] Comment on above: Performed By: #### L AB15 ####Drapery Counselor: VELMA VALADEZ ([phone])[facility] ([facility])[address] [place] [address] Potassium [Moles/Vol] 3.8 mmol/L Normal 3.5-5.1 [facility] Comment on above: Performed By: #### L AB15 ####Drapery Counselor: VELMA VALADEZ ([phone])[facility])[address] [place] [address] Sodium [Moles/Vol] 136 mmol/L Normal 135-145 [facility] Comment on above: Performed By: #### L AB15 ####Drapery Counselor: VELMA VALADEZ ([phone])[facility])[address] [place] [address] Urea nitrogen [Mass/Vol] 15 mg/dL Normal 7-17 [facility] Comment on above: Performed By: #### L AB15 ####Drapery Counselor: VELMA VALADEZ ([phone])[facility] [place] [address] Basic metabolic 1998 panelon 04-10-2024 Anion gap [Moles/Vol] 3 mmol/L 3 - 13 mmol/L [facility] Calcium [Mass/Vol] 9.0 mg/dL 8.4 - 10. 4 mg/dL [facility] Chloride [Moles/Vol] 111 mmol/L High 98 - 10 7 mmol/L [facility] CO2 [Moles/Vol] 21 mmol/L Low 22 - 30 mmol/L [facility] Creatinine [Mass/Vol] 1.00 mg/dL 0.52 - 1.04 mg/dL [facility] GFR/1.73 sq M.predicted (S/P/Bld) [Vol rate/Area] 55.7 mL/min Low - PINF [facility] Comment on above: Calculation based on the Chronic Kidney Disease Epidemiology Collaboration (CKD-EPI) equation refit without adjustment for race Glucose [Mass/Vol] 101 mg/dL High 70 - 100 mg/dL [facility] Interpretation and review of laboratory results Abnormal [facility] Potassium [Moles/Vol] 3.8 mmol/L 3.5 - 5.1 mmol/L [facility] Sodium [Moles/Vol] 136 mmol/L 135 - 145 mmol/L [facility] Urea nitrogen [Mass/Vol] 15 mg/dL 7 - 17 mg/dL [facility] CARECOORDon 04-10-2024 CARECOORD Normal [facility] CBC W Auto Differential pane l (Bld)on 04-10-2024 Basophils (Bld) [#/Vol] 0.0 10*3/uL 0.0 - 0.2 10*3/uL [facility] Basophils/100 WBC (Bld) 0.7 % 0.0 - 2.0 % [facility] Eosinophils (Bld) [#/Vol] 0.1 10*3/uL 0.0 - 0.5 10*3/uL [facility] Eosinophils/100 WBC (Bld) 2.1 % 0.0 - 6.0 % [facility] Erythrocyte distribution width (RBC) [Ratio] 14.7 % 11.5 - 15.0 % [facility] Hematocrit (Bld) [Volume fraction] 26.0 % Low 35.0 - 47.0 % [facility] Hemoglobin (Bld) [Mass/Vol] 8.6 g/dL Low 11.7 - 16.0 g/dL [facility] Immature granulocytes (Bld) [#/Vol] 0.0 10*3/uL NINF - 0.1 10*3/uL [facility] Immature granulocytes/100 WBC (Bld) 0.2 % 0.0 - 2.0 % [facility] Interpretation and review of laboratory results Abnormal [facility] Lymphocytes (Bld) [#/Vol] 1.4 10*3/uL 1.0 - 4.3 10*3/uL [facility] Lymphocytes/100 WBC (Bld) 32.9 % 15.0 - 45.0 % [facility] MCH (RBC) [Entitic mass] 30.1 pg 26.0 - 34.0 pg [facility] MCHC (RBC) [Mass/Vol] 33.1 % 30.5 - 36.0 % [facility] MCV (RBC) [Entitic vol] 90.9 fL 77.0 - 99.0 fL [facility] Monocytes (Bld) [#/Vol] 0.6 10*3/uL 0.0 - 0.9 10*3/uL [facility] Monocytes/100 WBC (Bld) 13.6 % High 5.0 - 13.0 % [facility] Neutrophils (Bld) [#/Vol] 2.1 10*3/uL 1.8 - 7.5 10*3/uL [facility] Neutrophils/100 WBC (Bld) 50.5 % 38.0 - 82.0 % [facility] Nucleated RBC/100 WBC (Bld) [Ratio] 0.0 % [facility] Platelet mean volume (Bld) [Entitic vol] 10.0 fL 9.0 - 12.7 fL [facility] Platelets (Bld) [#/Vol] 238 10*3/uL 140 - 440 10*3/uL [facility] RBC (Bld) [#/Vol] 2.86 10*6/uL Low 3.80 - 5.2 0 10*6/uL [facility] WBC (Bld) [#/Vol] 4.3 10*3/uL 3.6 - 10.7 10*3/uL [facility] CBC WITH AUTO DIFFERENTIALon 04-10-2024 Basophils (Bld) [#/Vol] 0.0 10*3/uL Normal 0.0-0.2 [facility] Comment on above: Performed By: #### L [id number] ####Drapery Counselor: VELMA VALADEZ ([phone])[facility] ([facility])[address] [place] [address] Basophils/100 WBC (Bld) 0.7 % Normal 0.0-2.0 [facility] Comment on above: Performed By: #### L [id number] ####Drapery Counselor: VELMA VALADEZ ([phone])[facility])[address] [place] [address] Eosinophils (Bld) [#/Vol] 0.1 10*3/uL Normal 0.0-0.5 [facility] Comment on above: Performed By: #### L [id number] ####Drapery Counselor: VELMA VALADEZ ([phone])[facility])[address] [place] [address] Eosinophils/100 WBC (Bld) 2.1 % Normal 0.0-6.0 [facility] Comment on above: Performed By: #### L [id number] ####Drapery Counselor: VELMA VALADEZ ([phone])[facility])[address] [place] [address] Erythrocyte distribution width (RBC) [Ratio] 14.7 % Normal 11.5-15.0 [facility] Comment on above: Performed By: #### L [id number] ####Drapery Counselor: VELMA VALADEZ ([phone])[facility])[address] [place] [address] Hematocrit (Bld) [Volume fraction] 26.0 % Low 35.0-47.0 [facility] Comment on above: Performed By: #### L [id number] ####Drapery Counselor: VELMA VALADEZ ([phone])[facility])[address] [place] [address] Hemoglobin (Bld) [Mass/Vol] 8.6 g/dL Low 11.7-16.0 [facility] Comment on above: Performed By: #### L [id number] ####Drapery Counselor: VELMA VALAEDZ ([phone])[facility])[address] [place] [address] IMMATURE GRANS % 0.2 % Normal 0.0-2.0 [facility] Comment on above: Performed By: #### L [id number] ####Drapery Counselor: VELMA VALADEZ ([phone])[facility])[address] [place] [address] IMMATURE GRANS ABSOLUTE 0.0 10*3/uL Normal <0.1 [facility] Comment on above: Performed By: #### L [id number] ####Drapery Counselor: VELMA VALADEZ ([phone])[facility] ([facility])[address] [place] [address] Lymphocytes (Bld) [#/Vol] 1.4 10*3/uL Normal 1.0-4.3 [facility] Comment on above: Performed By: #### L [id number] ####Drapery Counselor: VELMA VLAADEZ ([phone])[facility])[address] [place] [address] Lymphocytes/100 WBC (Bld) 32.9 % Normal 15.0-45.0 [facility] Comment on above: Performed By: #### L [id number] ####Drapery Counselor: VELMA VALADEZ ([phone])[facility])[address] [place] [address] MCH (RBC) [Entitic mass] 30.1 pg Normal 26.0-34.0 [facility] Comment on above: Performed By: #### L [id number] ####Drapery Counselor: VELMA VALADEZ ([phone])[facility] ([facility])[address] [place] [address] MCHC 33.1 % Normal 30.5-36.0 [facility] Comment on above: Performed By: #### L [id number] ####Drapery Counselor: VELMA VALADEZ ([phone])[facility] ([facility])[address] [place] [address] MCV (RBC) [Entitic vol] 90.9 fL Normal 77.0-99.0 [facility] Comment on above: Performed By: #### L [id number] ####Drapery Counselor: VELMA VALADEZ ([phone])[facility] ([facility])[address] [place] [address] Monocytes (Bld) [#/Vol] 0.6 10*3/uL Normal 0.0-0.9 [facility] Comment on above: Performed By: #### L [id number] ####Drapery Counselor: VELMA VALADEZ ([phone])[facility] ([facility])[address] [place] [address] Monocytes/100 WBC (Bld) 13.6 % High 5.0-13.0 [facility] Comment on above: Performed By: #### L [id number] ####Drapery Counselor: VELMA VALADEZ ([phone])[facility] ([facility])[address] [place] [address] NEUTROPHILS ABSOLUTE 2.1 10*3/uL Normal 1.8-7.5 [facility] Comment on above: Performed By: #### L [id number] ####Drapery Counselor: VELMA VALADEZ ([phone])[facility] ([facility])[address] [place] [address] Neutrophils/100 WBC (Bld) 50.5 % Normal 38.0-82.0 [facility] Comment on above: Performed By: #### L [id number] ####Drapery Counselor: VELMA VALADEZ ([phone])[facility] ([facility])[address] [place] [address] NRBC 0.0 /100 WBCs Normal 0.0-2.0 [facility] Comment on above: Performed By: #### L [id number] ####Drapery Counselor: VELMA VALADEZ ([phone])[facility])[address] [place] [address] Platelet mean volume (Bld) [Entitic vol] 10.0 fL Normal 9.0-12.7 [facility] Comment on above: Performed By: #### L [id number] ####Drapery Counselor: VELMA VALADEZ ([phone])[facility] ([facility])[address] [place] [address] Platelets (Bld) [#/Vol] 238 10*3/uL Normal 140-440 [facility] Comment on above: Performed By: #### L [id number] ####Drapery Counselor: VELMA VALADEZ ([phone])[facility])[address] [place] [address] RBC (Bld) [#/Vol] 2.86 10*6/uL Low 3.80-5.20 [facility] Comment on above: Performed By: #### L [id number] ####Drapery Counselor: VELMA VALADEZ ([phone])[facility] ([facility])[address] [place] [address] WBC (Bld) [#/Vol] 4.3 10*3/uL Normal 3.6-10.7 [facility] Comment on above: Performed By: #### L [id number] ####Drapery Counselor: VELMA VALADEZ ([phone])[facility] ([facility])[address] [place] [address] [place] IDNon 04-10-2024 IDN Normal [facility] Laboratory - Coagulationon 0 04-10-2024 PT Coag (Bld) [Time] 17.7 s High 9.0 - 1 2.0 s [facility] No Panel Informationon 04-10 Interpretation and review of laboratory results Abnormal [facility] PROTHROMBIN TIMEon INR Coag (PPP) [Relative time] 1.6 {INR} High 0.9-1.1 [facility] Comment on above: [...] Myocardial Infarction Performed By: #### L [id number], [id number] ####Drapery Counselor: VELMA VALADEZ ([phone])[address] PT Coag (PPP) [Time] 17.7 s High 9.0-12.0 [facility] Comment on above: Performed By: #### [place] AB325, [id number] ####Drapery Counselor: VELMA VALADEZ ([phone])[facility] ([address] PT Coag (Bld) [Time]on 04-10 INR Coag (PPP) [Relative time] 1.6 {INR} High 0.9 - 1.1 [facility] Comment on above: Recommended Anticoag ulant [...] Infarction Progress Noteon 04-10-2024 Progress Note Normal [facility] Progress Note Nutrition update completed. Chart reviewed. Patient to be monitored and followed by the diet r and d lab technician. FADI Farrar Normal [facility] Progress Note Normal [facility] aPTT Coag (Bld) [Time]on aPTT Coag (PPP) [Time] 59.0 s High 20.0 - 30.5 s [facility] Interpretation and review of laboratory results Abnormal [facility] NOTE: The therapeuti c time for Heparin anticoagulation, based on Xa activity inhibition, is an APTT of 46-80 seconds. [facility] aPTT Coag (PPP) [Time] 77.3 s High 20.0 - 30.5 s [facility] NOTE: The therapeuti c time for Heparin anticoagulation, based on Xa activity inhibition, is an APTT of 46-80 seconds. [facility] APTTon 04-09-2024 aPTT Coag (Bld) [Time] 58.9 s High 20.0-30.5 [facility] Comment on above: Result Comment: HARRIETE R COMMENTS:NOTE: The therapeutic time for Heparin anticoagulation, based on Xa activity inhibition, is an APTT of 46-80 seconds. Performed By: #### L [id number] ####Drapery Counselor: VELMA VALADEZ ([phone])[address] aPTT Coag (Bld) [Time] 64.6 s High 20.0-30.5 [facility] Comment on above: Result Comment: BUBBA R COMMENTS:NOTE: The therapeutic time for Heparin anticoagulation, based on Xa activity inhibition, is an APTT of 46-80 seconds. Performed By: #### L [id number] ####Drapery Counselor: VELMA VALADEZ ([phone])[address] aPTT Coag (Bld) [Time] 82.3 s High 20.0-30.5 [facility] Comment on above: Result Comment: BUBBA R COMMENTS:NOTE: The therapeutic time for Heparin anticoagulation, based on Xa activity inhibition, is an APTT of 46-80 seconds. Performed By: #### L [id number], [id number] ####Drapery Counselor: VELMA VALADEZ ([phone])[facility])[address] [place] [address] BASIC METABOLIC PANELon - Anion gap [Moles/Vol] 5 mmol/L Normal 3-13 [facility] Comment on above: Performed By: #### L AB15 ####Drapery Counselor: VELMA VALADEZ ([phone])[facility] ([facility])[address] [place] [address] Calcium [Mass/Vol] 8.9 mg/dL Normal 8.4-10.4 [facility] Comment on above: Performed By: #### L AB15 ####Drapery Counselor: VELMA VALADEZ ([phone])[facility] [place] [address] [place] Chloride [Moles/Vol] 116 mmol/L High 98-107 [facility] Comment on above: Performed By: #### L AB15 ####Drapery Counselor: VELMA VALADEZ ([phone])[facility] ([facility])[address] [place] [address] CO2 [Moles/Vol] 16 mmol/L Low 22-30 [facility] Comment on above: Performed By: #### L AB15 ####Drapery Counselor: VELMA VALADEZ ([phone])[facility] ([facility])[address] [place] [address] Creatinine [Mass/Vol] 0.93 mg/dL Normal 0.52-1.04 [facility] Comment on above: Performed By: #### L AB15 ####Drapery Counselor: VELMA VALADEZ ([phone])[facility] ([facility])[address] [place] [address] [place] GLOMERULAR FILTRATION RATE ML/MIN/1.73 SQ M.PREDICTED 60.7 mL/min/1.73m*2 Normal >60.0 [facility] Comment on above: Result Comment: Calc ulation based on the Chronic Kidney Disease Epidemiology Collaboration (CKD-EPI) equation refit without adjustment for race Performed By: #### L AB15 ####Drapery Counselor: VELMA VALADEZ ([phone])[facility] ([facility])[address] [place] [address] [place] Glucose [Mass/Vol] 119 mg/dL High 70-100 [facility] Comment on above: Performed By: #### L AB15 ####Drapery Counselor: VELMA VALADEZ ([phone])[facility] ([facility])[address] [place] [address] Potassium [Moles/Vol] 4.4 mmol/L Normal 3.5-5.1 [facility] Comment on above: Performed By: #### L AB15 ####Drapery Counselor: VELMA VALADEZ ([phone])[facility])[address] [place] [address] Sodium [Moles/Vol] 136 mmol/L Normal 135-145 [facility] Comment on above: Performed By: #### L AB15 ####Drapery Counselor: VELMA VALADEZ ([phone])[facility] ([facility])[address] [place] [address] Urea nitrogen [Mass/Vol] 16 mg/dL Normal 7-17 [facility] Comment on above: Performed By: #### L AB15 ####Drapery Counselor: VELMA VALADEZ ([phone])[facility])[address] [place] [address] Basic metabolic 1998 panelon 04-09-2024 Anion gap [Moles/Vol] 5 mmol/L 3 - 13 mmol/L [facility] Calcium [Mass/Vol] 8.9 mg/dL 8.4 - 10. 4 mg/dL [facility] Chloride [Moles/Vol] 116 mmol/L High 98 - 10 7 mmol/L [facility] CO2 [Moles/Vol] 16 mmol/L Low 22 - 30 mmol/L [facility] Creatinine [Mass/Vol] 0.93 mg/dL 0.52 - 1.04 mg/dL [facility] GFR/1.73 sq M.predicted (S/P/Bld) [Vol rate/Area] 60.7 mL/min - PINF [facility] Comment on above: Calculation based on the Chronic Kidney Disease Epidemiology Collaboration (CKD-EPI) equation refit without adjustment for race Glucose [Mass/Vol] 119 mg/dL High 70 - 100 mg/dL [facility] Interpretation and review of laboratory results Abnormal [facility] Potassium [Moles/Vol] 4.4 mmol/L 3.5 - 5.1 mmol/L [facility] Sodium [Moles/Vol] 136 mmol/L 135 - 145 mmol/L [facility] Urea nitrogen [Mass/Vol] 16 mg/dL 7 - 17 mg/dL [facility] CARECOORDon 04-09-2024 CAR[place]OORD Normal [facility] CBC W Auto Differential pane l (Bld)on 04-09-2024 Basophils (Bld) [#/Vol] 0.0 10*3/uL 0.0 - 0.2 10*3/uL [facility] Basophils/100 WBC (Bld) 0.6 % 0.0 - 2.0 % [facility] Eosinophils (Bld) [#/Vol] 0.1 10*3/uL 0.0 - 0.5 10*3/uL [facility] Eosinophils/100 WBC (Bld) 0.9 % 0.0 - 6.0 % [facility] Erythrocyte distribution width (RBC) [Ratio] 14.8 % 11.5 - 15.0 % [facility] Hematocrit (Bld) [Volume fraction] 28.2 % Low 35.0 - 47.0 % [facility] [facility] Hem[facility] (Bld) [Mass/Vol] 9.0 g/dL Low 11.7 - 16.0 g/dL [facility] Immature granulocytes (Bld) [#/Vol] 0.0 10*3/uL NINF - 0.1 10*3/uL [facility] Immature granulocytes/100 WBC (Bld) 0.4 % 0.0 - 2.0 % [facility] Interpretation and review of laboratory results Abnormal [facility] Lymphocytes (Bld) [#/Vol] 2.2 10*3/uL 1.0 - 4.3 10*3/uL [facility] Lymphocytes/100 WBC (Bld) 31.2 % 15.0 - 45.0 % [facility] MCH (RBC) [Entitic mass] 29.8 pg 26.0 - 34.0 pg [facility] MCHC (RBC) [Mass/Vol] 31.9 % 30.5 - 36.0 % [facility] MCV (RBC) [Entitic vol] 93.4 fL 77.0 - 99.0 fL [facility] Monocytes (Bld) [#/Vol] 0.7 10*3/uL 0.0 - 0.9 10*3/uL [facility] Monocytes/100 WBC (Bld) 10.7 % 5.0 - 13.0 % [facility] Neutrophils (Bld) [#/Vol] 3.9 10*3/uL 1.8 - 7.5 10*3/uL [facility] Neutrophils/100 WBC (Bld) 56.2 % 38.0 - 82.0 % [facility] Nucleated RBC/100 WBC (Bld) [Ratio] 0.0 % [facility] Platelet mean volume (Bld) [Entitic vol] 10.2 fL 9.0 - 12.7 fL [facility] Platelets (Bld) [#/Vol] 235 10*3/uL 140 - 440 10*3/uL [facility] RBC (Bld) [#/Vol] 3.02 10*6/uL Low 3.80 - 5.2 0 10*6/uL [facility] WBC (Bld) [#/Vol] 6.9 10*3/uL 3.6 - 10.7 10*3/uL [facility] CBC WITH AUTO DIFFERENTIALon 04-09-2024 Basophils (Bld) [#/Vol] 0.0 10*3/uL Normal 0.0-0.2 [facility] Comment on above: Performed By: #### L [id number] ####Drapery Counselor: VELMA VALADEZ ([phone])[address] Basophils/100 WBC (Bld) 0.6 % Normal 0.0-2.0 [facility] Comment on above: Performed By: #### L [id number] ####Drapery Counselor: VELMA VALADEZ ([phone])[facility] ([facility])[address] [place] [address] [place] Eosinophils (Bld) [#/Vol] 0.1 10*3/uL Normal 0.0-0.5 [facility] Comment on above: Performed By: #### L [id number] ####Drapery Counselor: VELMA VALADEZ ([phone])[facility])[address] [place] [address] [place] Eosinophils/100 WBC (Bld) 0.9 % Normal 0.0-6.0 [facility] Comment on above: Performed By: #### L [id number] ####Drapery Counselor: VELMA VALADEZ ([phone])[address] Erythrocyte distribution width (RBC) [Ratio] 14.8 % Normal 11.5-15.0 [facility] Comment on above: Performed By: #### L [id number] ####Drapery Counselor: VELMA VALADEZ ([phone])[address] Hematocrit (Bld) [Volume fraction] 28.2 % Low 35.0-47.0 [facility] Comment on above: Performed By: #### L [id number] ####Drapery Counselor: VELMA VALADEZ ([phone])[address] Hemoglobin (Bld) [Mass/Vol] 9.0 g/dL Low 11.7-16.0 [facility] Comment on above: Performed By: #### L [id number] ####Drapery Counselor: VELMA VALADEZ ([phone])[address] IMMATURE GRANS % 0.4 % Normal 0.0-2.0 [facility] Comment on above: Performed By: #### L [id number] ####Drapery Counselor: VELMA VALADEZ ([phone])[address] IMMATURE GRANS ABSOLUTE 0.0 10*3/uL Normal <0.1 [facility] Comment on above: Performed By: #### L [id number] ####Drapery Counselor: VELMA VALADEZ ([phone])[address] Lymphocytes (Bld) [#/Vol] 2.2 10*3/uL Normal 1.0-4.3 [facility] Comment on above: Performed By: #### L [id number] ####Drapery Counselor: VELMA VALADEZ ([phone])[facility] ([facility])[address] [place] [address] Lymphocytes/100 WBC (Bld) 31.2 % Normal 15.0-45.0 [facility] Comment on above: Performed By: #### L [id number] ####Drapery Counselor: VELMA VALADEZ ([phone])[facility])[address] [place] [address] MCH (RBC) [Entitic mass] 29.8 pg Normal 26.0-34.0 [facility] Comment on above: Performed By: #### L [id number] ####Drapery Counselor: VELMA VALADEZ ([phone])[facility])[address] [place] [address] MCHC 31.9 % Normal 30.5-36.0 [facility] Comment on above: Performed By: #### L [id number] ####Drapery Counselor: VELMA VALADEZ ([phone])[facility] ([facility])[address] [place] [address] MCV (RBC) [Entitic vol] 93.4 fL Normal 77.0-99.0 [facility] Comment on above: Performed By: #### L [id number] ####Drapery Counselor: VELMA VALADEZ ([phone])[facility])[address] [place] [address] Monocytes (Bld) [#/Vol] 0.7 10*3/uL Normal 0.0-0.9 [facility] Comment on above: Performed By: #### L [id number] ####Drapery Counselor: VELMA VALADEZ ([phone])[facility])[address] [place] [address] Monocytes/100 WBC (Bld) 10.7 % Normal 5.0-13.0 [facility] Comment on above: Performed By: #### L [id number] ####Drapery Counselor: VELMA VALADEZ ([phone])[facility])[address] [place] [address] NEUTROPHILS ABSOLUTE 3.9 10*3/uL Normal 1.8-7.5 [facility] Comment on above: Performed By: #### L [id number] ####Drapery Counselor: VELMA VALADEZ ([phone])[facility] ([facility])[address] [place] [address] Neutrophils/100 WBC (Bld) 56.2 % Normal 38.0-82.0 [facility] Comment on above: Performed By: #### L [id number] ####Drapery Counselor: VELMA VALADEZ ([phone])[facility] ([facility])[address] [place] [address] NRBC 0.0 /100 WBCs Normal 0.0-2.0 [facility] Comment on above: Performed By: #### L [id number] ####Drapery Counselor: VELMA VALADEZ ([phone])[facility] ([facility])[address] [place] [address] Platelet mean volume (Bld) [Entitic vol] 10.2 fL Normal 9.0-12.7 [facility] Comment on above: Performed By: #### L [id number] ####Drapery Counselor: VLEMA VALADEZ ([phone])[facility] ([facility])[address] [place] [address] Platelets (Bld) [#/Vol] 235 10*3/uL Normal 140-440 [facility] Comment on above: Performed By: #### L [id number] ####Drapery Counselor: VELMA VALADEZ ([phone])[facility] ([facility])[address] [place] [address] [place] RBC (Bld) [#/Vol] 3.02 10*6/uL Low 3.80-5.20 [facility] Comment on above: Performed By: #### L [id number] ####Drapery Counselor: VELMA VALADEZ ([phone])[facility] ([facility])[address] [place] [address] [place] WBC (Bld) [#/Vol] 6.9 10*3/uL Normal 3.6-10.7 [facility] Comment on above: Performed By: #### [place] [id number] ####Drapery Counselor: VELMA VALADEZ ([phone])[facility])[address] [place] [address] Laboratory - Coagulationon 0 04-09-2024 PT Coag (Bld) [Time] 13.8 s High 9.0 - 1 2.0 s [facility] No Panel Informationon 04-09 Interpretation and review of laboratory results Abnormal [facility] PROTHROMBIN TIMEon INR Coag (PPP) [Relative time] 1.2 {INR} High 0.9-1.1 [facility] Comment on above: [...] Myocardial Infarction Performed By: #### [place] [id number], [id number] ####Drapery Counselor: VELMA VALADEZ ([phone])[facility])[address] [place] [address] PT Coag (PPP) [Time] 13.8 s High 9.0-12.0 [facility] Comment on above: Performed By: #### [place] [id number], [id number] ####Drapery Counselor: VELMA VALADEZ ([phone])[facility])[address] [place] [address] PT Coag (Bld) [Time]on 04-09 INR Coag (PPP) [Relative time] 1.2 {INR} High 0.9 - 1.1 [facility] Comment on above: Recommended Anticoag ulant [...] Infarction Progress Noteon 04-09-2024 Progress Note Normal [facility] Progress Note Normal [facility] XR CHEST 1 VIEWon 04-09-2024 XR CHEST 1 VIEW Normal [facility] XR Chest Single viewon 04-09 Mild cardiomegaly and pulmonary venous congestion with small pleural effusions. Report Dictated on Electronically Signed By: Di Leggett MD Electronically Signed Date/Time: 04/09/2024 1:42 PM EDT [facility] Patient Name: MEL CARVER RD : [...] the left shoulder. No acute osseous findings. [facility] Di Leggett M D - 04/09/2024 [...] Electronically Signed Date/Time: 04/09/2024 1:42 PM EDT [facility] Radiology Study observation (narrative) [facility] XR Chest Single viewOrdered By: Di Leggett on 04-09-2024 [facility] Work Phone: aPTT Coag (Bld) [Time]on aPTT Coag (PPP) [Time] 58.9 s High 20.0 - 30.5 s [facility] Interpretation and review of laboratory results Abnormal [facility] NOTE: The therapeuti c time for Heparin anticoagulation, based on Xa activity inhibition, is an APTT of 46-80 seconds. [facility] aPTT Coag (PPP) [Time] 64.6 s High 20.0 - 30.5 s [facility] Interpretation and review of laboratory results Abnormal [facility] NOTE: The therapeuti c time for Heparin anticoagulation, based on Xa activity inhibition, is an APTT of 46-80 seconds. [facility] aPTT Coag (PPP) [Time] 82.3 s High 20.0 - 30.5 s [facility] NOTE: The therapeuti c time for Heparin anticoagulation, based on Xa activity inhibition, is an APTT of 46-80 seconds. [facility] APTTon 04-08-2024 aPTT Coag (Bld) [Time] 51.5 s High 20.0-30.5 [facility] Comment on above: Result Comment: BUBBA Garcia COMMENTS:NOTE: The therapeutic time for Heparin anticoagulation, based on Xa activity inhibition, is an APTT of 46-80 seconds. Performed By: #### L [id number] ####Drapery Counselor: VELMA VALADEZ ([phone])[facility] ([facility] aPTT Coag (Bld) [Time] 59.8 s High 20.0-30.5 [facility] Comment on above: Result Comment: BUBBA Garcia COMMENTS:NOTE: The therapeutic time for Heparin anticoagulation, based on Xa activity inhibition, is an APTT of 46-80 seconds. Performed By: #### L [id number] ####Drapery Counselor: VELMA VALADEZ ([phone])[facility] ([facility])[address] [place] [address] aPTT Coag (Bld) [Time] 41.4 s High 20.0-30.5 [facility] Comment on above: Result Comment: BUBBA Garcia COMMENTS:NOTE: The therapeutic time for Heparin anticoagulation, based on Xa activity inhibition, is an APTT of 46-80 seconds. Performed By: #### L [id number], [id number] ####Drapery Counselor: VELMA VALADEZ ([phone])[facility] ([facility])[address] [place] [address] BASIC METABOLIC PANELon 09-2 -2023 Anion gap [Moles/Vol] 5 mmol/L Normal 3-13 [facility] Comment on above: Performed By: #### L AB15 ####Drapery Counselor: VELMA VALADEZ ([phone])[facility])[address] [place] [address] Calcium [Mass/Vol] 8.9 mg/dL Normal 8.4-10.4 [facility] Comment on above: Performed By: #### L AB15 ####Drapery Counselor: VELMA VALADEZ ([phone])[facility])[address] [place] [address] Chloride [Moles/Vol] 113 mmol/L High 98-107 [facility] Comment on above: Performed By: #### L AB15 ####Drapery Counselor: VELMA VALADEZ ([phone])[facility] ([facility])[address] [place] [address] CO2 [Moles/Vol] 17 mmol/L Low 22-30 [facility] Comment on above: Performed By: #### L AB15 ####Drapery Counselor: VELMA VALADEZ ([phone])[facility] ([facility])[address] [place] [address] Creatinine [Mass/Vol] 0.98 mg/dL Normal 0.52-1.04 [facility] Comment on above: Performed By: #### L AB15 ####Drapery Counselor: VELMA VALADEZ ([phone])[facility] ([facility])[address] [place] [address] [place] GLOMERULAR FILTRATION RATE ML/MIN/1.73 SQ M.PREDICTED 57.0 mL/min/1.73m*2 Low >60.0 [facility] Comment on above: Result Comment: Calc ulation based on the Chronic Kidney Disease Epidemiology Collaboration (CKD-EPI) equation refit without adjustment for race Performed By: #### L AB15 ####Drapery Counselor: VELMA VALADEZ ([phone])[facility] ([facility])[address] [place] [address] Glucose [Mass/Vol] 116 mg/dL High 70-100 [facility] Comment on above: Performed By: #### L AB15 ####Drapery Counselor: VELMA VALADEZ ([phone])[facility] ([facility])[address] [place] [address] Potassium [Moles/Vol] 4.5 mmol/L Normal 3.5-5.1 [facility] Comment on above: Performed By: #### L AB15 ####Drapery Counselor: VELMA VALADEZ ([phone])[facility])[address] [place] [address] Sodium [Moles/Vol] 135 mmol/L Normal 135-145 [facility] Comment on above: Performed By: #### L AB15 ####Drapery Counselor: VELMA VALADEZ ([phone])[facility])[address] [place] [address] Urea nitrogen [Mass/Vol] 18 mg/dL High 7-17 [facility] Comment on above: Performed By: #### L AB15 ####Drapery Counselor: VELMA VALADEZ ([phone])[facility])[address] [place] [address] Basic metabolic 1998 panelon 04-08-2024 Anion gap [Moles/Vol] 5 mmol/L 3 - 13 mmol/L [facility] Calcium [Mass/Vol] 8.9 mg/dL 8.4 - 10. 4 mg/dL [facility] Chloride [Moles/Vol] 113 mmol/L High 98 - 10 7 mmol/L [facility] CO2 [Moles/Vol] 17 mmol/L Low 22 - 30 mmol/L [facility] Creatinine [Mass/Vol] 0.98 mg/dL 0.52 - 1.04 mg/dL [facility] GFR/1.73 sq M.predicted (S/P/Bld) [Vol rate/Area] 57.0 mL/min Low - PINF [facility] Comment on above: Calculation based on the Chronic Kidney Disease Epidemiology Collaboration (CKD-EPI) equation refit without adjustment for race Glucose [Mass/Vol] 116 mg/dL High 70 - 100 mg/dL [facility] Interpretation and review of laboratory results Abnormal [facility] Potassium [Moles/Vol] 4.5 mmol/L 3.5 - 5.1 mmol/L [facility] Sodium [Moles/Vol] 135 mmol/L 135 - 145 mmol/L [facility] Urea nitrogen [Mass/Vol] 18 mg/dL High 7 - 17 mg/dL [facility] CBC W Auto Differential pane l (Bld)on 04-08-2024 Basophils (Bld) [#/Vol] 0.0 10*3/uL 0.0 - 0.2 10*3/uL [facility] Basophils/100 WBC (Bld) 0.5 % 0.0 - 2.0 % [facility] Eosinophils (Bld) [#/Vol] 0.1 10*3/uL 0.0 - 0.5 10*3/uL [facility] Eosinophils/100 WBC (Bld) 0.9 % 0.0 - 6.0 % [facility] Erythrocyte distribution width (RBC) [Ratio] 14.8 % 11.5 - 15.0 % [facility] Hematocrit (Bld) [Volume fraction] 27.0 % Low 35.0 - 47.0 % [facility] Hemoglobin (Bld) [Mass/Vol] 8.6 g/dL Low 11.7 - 16.0 g/dL [facility] Immature granulocytes (Bld) [#/Vol] 0.0 10*3/uL NINF - 0.1 10*3/uL [facility] Immature granulocytes/100 WBC (Bld) 0.4 % 0.0 - 2.0 % [facility] Interpretation and review of laboratory results Abnormal [facility] Lymphocytes (Bld) [#/Vol] 1.7 10*3/uL 1.0 - 4.3 10*3/uL [facility] Lymphocytes/100 WBC (Bld) 23.3 % 15.0 - 45.0 % [facility] MCH (RBC) [Entitic mass] 30.2 pg 26.0 - 34.0 pg [facility] MCHC (RBC) [Mass/Vol] 31.9 % 30.5 - 36.0 % [facility] MCV (RBC) [Entitic vol] 94.7 fL 77.0 - 99.0 fL [facility] Monocytes (Bld) [#/Vol] 0.8 10*3/uL 0.0 - 0.9 10*3/uL [facility] Monocytes/100 WBC (Bld) 10.2 % 5.0 - 13.0 % [facility] Neutrophils (Bld) [#/Vol] 4.8 10*3/uL 1.8 - 7.5 10*3/uL [facility] Neutrophils/100 WBC (Bld) 64.7 % 38.0 - 82.0 % [facility] Nucleated RBC/100 WBC (Bld) [Ratio] 0.0 % [facility] Platelet mean volume (Bld) [Entitic vol] 10.1 fL 9.0 - 12.7 fL [facility] Platelets (Bld) [#/Vol] 223 10*3/uL 140 - 440 10*3/uL [facility] RBC (Bld) [#/Vol] 2.85 10*6/uL Low 3.80 - 5.2 0 10*6/uL [facility] WBC (Bld) [#/Vol] 7.5 10*3/uL 3.6 - 10.7 10*3/uL [facility] CBC WITH AUTO DIFFERENTIALon 04-08-2024 Basophils (Bld) [#/Vol] 0.0 10*3/uL Normal 0.0-0.2 [facility] Comment on above: Performed By: #### L [id number] ####Drapery Counselor: VELMA VALADEZ ([phone])[facility])[address] [place] [address] Basophils/100 WBC (Bld) 0.5 % Normal 0.0-2.0 [facility] Comment on above: Performed By: #### L [id number] ####Drapery Counselor: VELMA VALADEZ ([phone])[facility])[address] [place] [address] Eosinophils (Bld) [#/Vol] 0.1 10*3/uL Normal 0.0-0.5 [facility] Comment on above: Performed By: #### L [id number] ####Drapery Counselor: VELMA VALADEZ ([phone])[facility])[address] [place] [address] Eosinophils/100 WBC (Bld) 0.9 % Normal 0.0-6.0 [facility] Comment on above: Performed By: #### L [id number] ####Drapery Counselor: VELMA VALADEZ ([phone])[facility])[address] [place] [address] Erythrocyte distribution width (RBC) [Ratio] 14.8 % Normal 11.5-15.0 [facility] Comment on above: Performed By: #### L [id number] ####Drapery Counselor: VELMA VALADEZ ([phone])[facility])[address] [place] [address] Hematocrit (Bld) [Volume fraction] 27.0 % Low 35.0-47.0 [facility] Comment on above: Performed By: #### L [id number] ####Drapery Counselor: VELMA VALADEZ ([phone])[address] Hemoglobin (Bld) [Mass/Vol] 8.6 g/dL Low 11.7-16.0 [facility] Comment on above: Performed By: #### L [id number] ####Drapery Counselor: VELMA VALADEZ ([phone])[facility])[address] [place] [address] IMMATURE GRANS % 0.4 % Normal 0.0-2.[address] [facility] Comment on above: Performed By: #### L [id number] ####Drapery Counselor: VELMA VALADEZ ([phone])[facility])[address] [place] [address] IMMATURE GRANS ABSOLUTE 0.0 10*3/uL Normal <0.1 [facility] Comment on above: Performed By: #### L [id number] ####Drapery Counselor: VELMA VALADEZ ([phone])[facility])[address] [place] [address] Lymphocytes (Bld) [#/Vol] 1.7 10*3/uL Normal 1.0-4.3 [facility] Comment on above: Performed By: #### L [id number] ####Drapery Counselor: VELMA VALADEZ ([phone])[facility])[address] [place] [address] Lymphocytes/100 WBC (Bld) 23.3 % Normal 15.0-45.0 [facility] Comment on above: Performed By: #### L [id number] ####Drapery Counselor: VELMA VALADEZ ([phone])[facility])[address] [place] [address] MCH (RBC) [Entitic mass] 30.2 pg Normal 26.0-34.0 [facility] Comment on above: Performed By: #### L [id number] ####Drapery Counselor: VELMA VALADEZ ([phone])[facility])[address] [place] [address] MCHC 31.9 % Normal 30.5-36.0 [facility] Comment on above: Performed By: #### L [id number] ####Drapery Counselor: VELMA VALADEZ ([phone])[facility])[address] [place] [address] MCV (RBC) [Entitic vol] 94.7 fL Normal 77.0-99.0 [facility] Comment on above: Performed By: #### L [id number] ####Drapery Counselor: VELMA VALADEZ ([phone])[facility] ([facility])[address] [place] [address] Monocytes (Bld) [#/Vol] 0.8 10*3/uL Normal 0.0-0.9 [facility] Comment on above: Performed By: #### L [id number] ####Drapery Counselor: VELMA VALADEZ ([phone])[facility] ([facility])[address] [place] [address] Monocytes/100 WBC (Bld) 10.2 % Normal 5.0-13.0 [facility] Comment on above: Performed By: #### L [id number] ####Drapery Counselor: VELMA VALADEZ ([phone])[facility] ([facility])[address] [place] [address] NEUTROPHILS ABSOLUTE 4.8 10*3/uL Normal 1.8-7.5 [facility] Comment on above: Performed By: #### L [id number] ####Drapery Counselor: VELMA VALADEZ ([phone])[facility] ([facility])[address] [place] [address] Neutrophils/100 WBC (Bld) 64.7 % Normal 38.0-82.0 [facility] Comment on above: Performed By: #### L [id number] ####Drapery Counselor: VELMA VALADEZ ([phone])[facility] ([facility])[address] [place] [address] NRBC 0.0 /100 WBCs Normal 0.0-2.0 [facility] Comment on above: Performed By: #### L [id number] ####Drapery Counselor: VELMA VALADEZ ([phone])[facility] ([facility])[address] [place] [address] [place] Platelet mean volume (Bld) [Entitic vol] 10.1 fL Normal 9.0-12.7 [facility] Comment on above: Performed By: #### L [id number] ####Drapery Counselor: VELMA VALADEZ ([phone])[facility])[address] [place] [address] Platelets (Bld) [#/Vol] 223 10*3/uL Normal 140-440 [facility] Comment on above: Performed By: #### L [id number] ####Drapery Counselor: VELMA VALADEZ ([phone])[facility])[address] [place] [address] RBC (Bld) [#/Vol] 2.85 10*6/uL Low 3.80-5.20 [facility] Comment on above: Performed By: #### L [id number] ####Drapery Counselor: VELMA VALADEZ ([phone])[facility])[address] [place] [address] WBC (Bld) [#/Vol] 7.5 10*3/uL Normal 3.6-10.7 [facility] Comment on above: Performed By: #### L [id number] ####Drapery Counselor: VELMA VALADEZ ([phone])[facility])[address] [place] [address] IDNon 04-08-2024 IDN Progressing Normal [facility] - Coagulationon 0 04-08-2024 PT Coag (Bld) [Time] 11.2 s 9.0 - 1 2.0 s [facility] No Panel Informationon 04-08 [facility] PROTHROMBIN TIMEon INR Coag (PPP) [Relative time] 1.0 {INR} Normal 0.9-1.1 [facility] Comment on above: [...] Myocardial Infarction Performed By: #### L [id number], [id number] ####Drapery Counselor: VELMA VALADEZ ([phone])[facility] ([facility])[address] [place] [address] PT Coag (PPP) [Time] 11.2 s Normal 9.0-12.0 [facility] Comment on above: Performed By: #### L [id number], [id number] ####Drapery Counselor: VELMA VALADEZ ([phone])[facility] ([facility])[address] [place] [address] PT Coag (Bld) [Time]on 04-08 INR Coag (PPP) [Relative time] 1.0 {INR} 0.9 - 1.1 [facility] Comment on above: Recommended Anticoag ulant [...] Interpretation and review of laboratory results Normal [facility] Progress Noteon 04-08-2024 Progress Note Normal [facility] Progress Note Normal [facility] aPTT Coag (Bld) [Time]on aPTT Coag (PPP) [Time] 51.5 s High 20.0 - 30.5 s [facility] Interpretation and review of laboratory results Abnormal [facility] NOTE: The therapeuti c time for Heparin anticoagulation, based on Xa activity inhibition, is an APTT of 46-80 seconds. [facility] aPTT Coag (PPP) [Time] 59.8 s High 20.0 - 30.5 s [facility] Interpretation and review of laboratory results Abnormal [facility] NOTE: The therapeuti c time for Heparin anticoagulation, based on Xa activity inhibition, is an APTT of 46-80 seconds. [facility] aPTT Coag (PPP) [Time] 41.4 s High 20.0 - 30.5 s [facility] Interpretation and review of laboratory results Abnormal [facility] NOTE: The therapeuti c time for Heparin anticoagulation, based on Xa activity inhibition, is an APTT of 46-80 seconds. [facility] APTTon 04-07-2024 aPTT Coag (Bld) [Time] 54.7 s High 20.0-30.5 [facility] Comment on above: Result Comment: BUBBA Garcia COMMENTS:NOTE: The therapeutic time for Heparin anticoagulation, based on Xa activity inhibition, is an APTT of 46-80 seconds. Performed By: #### L [id number] ####Drapery Counselor: VELMA VALADEZ ([phone])[facility])[address] [place] [address] aPTT Coag (Bld) [Time] 77.7 s High 20.0-30.5 [facility] Comment on above: Result Comment: BUBBA Garcia COMMENTS:NOTE: The therapeutic time for Heparin anticoagulation, based on Xa activity inhibition, is an APTT of 46-80 seconds. Performed By: #### L AB325, [id number] ####Drapery Counselor: VELMA VALADEZ ([phone])[facility] ([facility])[address] [place] [address] BASIC METABOLIC PANELon 03-19 Anion gap [Moles/Vol] 4 mmol/L Normal 3-13 [facility] Comment on above: Performed By: #### L AB15 ####Drapery Counselor: VELMA VALADEZ ([phone])[facility] ([facility])[address] [place] [address] Calcium [Mass/Vol] 8.8 mg/dL Normal 8.4-10.4 [facility] Comment on above: Performed By: #### L AB15 ####Drapery Counselor: VELMA VALADEZ ([phone])[facility])[address] [place] [address] Chloride [Moles/Vol] 115 mmol/L High 98-107 [facility] Comment on above: Performed By: #### L AB15 ####Drapery Counselor: VELMA VALADEZ ([phone])[facility] ([facility])[address] [place] [address] CO2 [Moles/Vol] 17 mmol/L Low 22-30 [facility] Comment on above: Performed By: #### L AB15 ####Drapery Counselor: VELMA VALADEZ ([phone])[facility] ([facility])[address] [place] [address] Creatinine [Mass/Vol] 0.90 mg/dL Normal 0.52-1.04 [facility] Comment on above: Performed By: #### L AB15 ####Drapery Counselor: VELMA VALADEZ ([phone])[facility])[address] [place] [address] GLOMERULAR FILTRATION RATE ML/MIN/1.73 SQ M.PREDICTED 63.2 mL/min/1.73m*2 Normal >60.0 [facility] Comment on above: Result Comment: Calc ulation based on the Chronic Kidney Disease Epidemiology Collaboration (CKD-EPI) equation refit without adjustment for race Performed By: #### L AB15 ####Drapery Counselor: VELMA VALADEZ ([phone])[facility] ([facility])[address] [place] [address] Glucose [Mass/Vol] 139 mg/dL High 70-100 [facility] Comment on above: Performed By: #### L AB15 ####Drapery Counselor: VELMA VALADEZ ([phone])[facility])[address] [place] [address] Potassium [Moles/Vol] 4.7 mmol/L Normal 3.5-5.1 [facility] Comment on above: Performed By: #### L AB15 ####Drapery Counselor: VELMA VALADEZ ([phone])[facility])[address] [place] [address] Sodium [Moles/Vol] 136 mmol/L Normal 135-145 [facility] Comment on above: Performed By: #### L AB15 ####Drapery Counselor: VELMA [phone])[facility] ([facility])[address] [place] [address] Urea nitrogen [Mass/Vol] 16 mg/dL Normal 7-17 [facility] Comment on above: Performed By: #### L AB15 ####Drapery Counselor: VELMA VALADEZ ([phone])[facility] [place] [address] Basic metabolic 1998 panelon 04-07-2024 Anion gap [Moles/Vol] 4 mmol/L 3 - 13 mmol/L [facility] Calcium [Mass/Vol] 8.8 mg/dL 8.4 - 10. 4 mg/dL [facility] Chloride [Moles/Vol] 115 mmol/L High 98 - 10 7 mmol/L [facility] CO2 [Moles/Vol] 17 mmol/L Low 22 - 30 mmol/L [facility] Creatinine [Mass/Vol] 0.90 mg/dL 0.52 - 1.04 mg/dL [facility] GFR/1.73 sq M.predicted (S/P/Bld) [Vol rate/Area] 63.2 mL/min - PINF [facility] Comment on above: Calculation based on the Chronic Kidney Disease Epidemiology Collaboration (CKD-EPI) equation refit without adjustment for race Glucose [Mass/Vol] 139 mg/dL High 70 - 100 mg/dL [facility] Interpretation and review of laboratory results Abnormal [facility] Potassium [Moles/Vol] 4.7 mmol/L 3.5 - 5.1 mmol/L [facility] Sodium [Moles/Vol] 136 mmol/L 135 - 145 mmol/L [facility] Urea nitrogen [Mass/Vol] 16 mg/dL 7 - 17 mg/dL [facility] CBC W Auto Differential pane l (Bld)on 04-07-2024 Basophils (Bld) [#/Vol] 0.0 10*3/uL 0.0 - 0.2 10*3/uL [facility] Basophils/100 WBC (Bld) 0.2 % 0.0 - 2.0 % [facility] Eosinophils (Bld) [#/Vol] 0.0 10*3/uL 0.0 - 0.5 10*3/uL [facility] Eosinophils/100 WBC (Bld) 0.0 % 0.0 - 6.0 % [facility] Erythrocyte distribution width (RBC) [Ratio] 14.3 % 11.5 - 15.0 % [facility] Hematocrit (Bld) [Volume fraction] 27.0 % Low 35.0 - 47.0 % [facility] Hemoglobin (Bld) [Mass/Vol] 8.6 g/dL Low 11.7 - 16.0 g/dL [facility] Immature granulocytes (Bld) [#/Vol] 0.0 10*3/uL NINF - 0.1 10*3/uL [facility] Immature granulocytes/100 WBC (Bld) 0.5 % 0.0 - 2.0 % [facility] Interpretation and review of laboratory results Abnormal [facility] Lymphocytes (Bld) [#/Vol] 0.8 10*3/uL Low 1.0 - 4.3 10*3/uL [facility] Lymphocytes/100 WBC (Bld) 19.2 % 15.0 - 45.0 % [facility] MCH (RBC) [Entitic mass] 30.1 pg 26.0 - 34.0 pg [facility] MCHC (RBC) [Mass/Vol] 31.9 % 30.5 - 36.0 % [facility] MCV (RBC) [Entitic vol] 94.4 fL 77.0 - 99.0 fL [facility] Monocytes (Bld) [#/Vol] 0.3 10*3/uL 0.0 - 0.9 10*3/uL [facility] Monocytes/100 WBC (Bld) 7.5 % 5.0 - 13.0 % [facility] Neutrophils (Bld) [#/Vol] 2.9 10*3/uL 1.8 - 7.5 10*3/uL [facility] Neutrophils/100 WBC (Bld) 72.6 % 38.0 - 82.0 % [facility] Nucleated RBC/100 WBC (Bld) [Ratio] 0.0 % [facility] [employer] Platelet mean volume (Bld) [Entitic vol] 10.5 fL 9.0 - 12.7 fL [facility] Platelets (Bld) [#/Vol] 202 10*3/uL 140 - 440 10*3/uL [facility] RBC (Bld) [#/Vol] 2.86 10*6/uL Low 3.80 - 5.2 0 10*6/uL [facility] WBC (Bld) [#/Vol] 4.0 10*3/uL 3.6 - 10.7 10*3/uL [facility] CBC WITH AUTO DIFFERENTIALon 04-07-2024 Basophils (Bld) [#/Vol] 0.0 10*3/uL Normal 0.0-0.2 [facility] Comment on above: Performed By: #### L [id number] ####Drapery Counselor: VELMA VALADEZ ([phone])[facility])[address] [place] [address] Basophils/100 WBC (Bld) 0.2 % Normal 0.0-2.0 [facility] Comment on above: Performed By: #### L [id number] ####Drapery Counselor: VELMA VALADEZ ([phone])[facility])[address] [place] [address] Eosinophils (Bld) [#/Vol] 0.0 10*3/uL Normal 0.0-0.5 [facility] Comment on above: Performed By: #### L [id number] ####Drapery Counselor: VELMA VALADEZ ([phone])[facility])[address] [place] [address] Eosinophils/100 WBC (Bld) 0.0 % Normal 0.0-6.0 [facility] Comment on above: Performed By: #### L [id number] ####Drapery Counselor: VELMA VALADEZ ([phone])[facility])[address] [place] [address] Erythrocyte distribution width (RBC) [Ratio] 14.3 % Normal 11.5-15.0 [facility] Comment on above: Performed By: #### L [id number] ####Drapery Counselor: VELMA VALADEZ ([phone])[facility])[address] [place] [address] Hematocrit (Bld) [Volume fraction] 27.0 % Low 35.0-47.0 [facility] Comment on above: Performed By: #### L [id number] ####Drapery Counselor: VELMA VALADEZ ([phone])[facility])[address] [place] [address] Hemoglobin (Bld) [Mass/Vol] 8.6 g/dL Low 11.7-16.0 [facility] Comment on above: Performed By: #### L [id number] ####Drapery Counselor: VELMA VALADEZ ([phone])[facility])[address] [place] [address] IMMATURE GRANS % 0.5 % Normal 0.0-2.0 [facility] Comment on above: Performed By: #### L [id number] ####Drapery Counselor: VELMA VALADEZ ([phone])[facility])[address] [place] [address] IMMATURE GRANS ABSOLUTE 0.0 10*3/uL Normal <0.1 [facility] Comment on above: Performed By: #### L [id number] ####Drapery Counselor: VELMA VALADEZ ([phone])[facility])[address] [place] [address] Lymphocytes (Bld) [#/Vol] 0.8 10*3/uL Low 1.0-4.3 [facility] Comment on above: Performed By: #### L [id number] ####Drapery Counselor: VELMA VALADEZ ([phone])[facility])[address] [place] [address] Lymphocytes/100 WBC (Bld) 19.2 % Normal 15.0-45.0 [facility] Comment on above: Performed By: #### L [id number] ####Drapery Counselor: VELMA VALADEZ ([phone])[facility])[address] [place] [address] MCH (RBC) [Entitic mass] 30.1 pg Normal 26.0-34.0 [facility] Comment on above: Performed By: #### L [id number] ####Drapery Counselor: VELMA VALADEZ ([phone])[facility])[address] [place] [address] MCHC 31.9 % Normal 30.5-36.0 [facility] Comment on above: Performed By: #### L [id number] ####Drapery Counselor: VELMA VALADEZ ([phone])[facility])[address] [place] [address] MCV (RBC) [Entitic vol] 94.4 fL Normal 77.0-99.0 [facility] Comment on above: Performed By: #### L [id number] ####Drapery Counselor: VELMA VALADEZ ([phone])[facility] ([facility])[address] [place] [address] Monocytes (Bld) [#/Vol] 0.3 10*3/uL Normal 0.0-0.9 [facility] Comment on above: Performed By: #### L [id number] ####Drapery Counselor: VELMA VALADEZ ([phone])[facility] ([facility])[address] [place] [address] Monocytes/100 WBC (Bld) 7.5 % Normal 5.0-13.0 [facility] Comment on above: Performed By: #### L [id number] ####Drapery Counselor: VELMA VALADEZ ([phone])[facility] ([facility])[address] [place] [address] NEUTROPHILS ABSOLUTE 2.9 10*3/uL Normal 1.8-7.5 [facility] Comment on above: Performed By: #### L [id number] ####Drapery Counselor: VELMA VALADEZ ([phone])[facility])[address] [place] [address] Neutrophils/100 WBC (Bld) 72.6 % Normal 38.0-82.0 [facility] Comment on above: Performed By: #### L [id number] ####Drapery Counselor: VELMA VALADEZ ([phone])[facility])[address] [place] [address] NRBC 0.0 /100 WBCs Normal 0.0-2.0 [facility] Comment on above: Performed By: #### L [id number] ####Drapery Counselor: VELMA VALADEZ ([phone])[facility])[address] [place] [address] Platelet mean volume (Bld) [Entitic vol] 10.5 fL Normal 9.0-12.7 [facility] Comment on above: Performed By: #### L [id number] ####Drapery Counselor: VELMA VALADEZ ([phone])[facility] ([facility])[address] [place] [address] Platelets (Bld) [#/Vol] 202 10*3/uL Normal 140-440 [facility] Comment on above: Performed By: #### L [id number] ####Drapery Counselor: VELMA VALADEZ ([phone])[facility])[address] [place] [address] RBC (Bld) [#/Vol] 2.86 10*6/uL Low 3.80-5.20 [facility] Comment on above: Performed By: #### L [id number] ####Drapery Counselor: VELMA VALADEZ ([phone])[facility])[address] [place] [address] WBC (Bld) [#/Vol] 4.0 10*3/uL Normal 3.6-10.7 [facility] Comment on above: Performed By: #### L [id number] ####Drapery Counselor: VELMA VALADEZ ([phone])[facility])[address] [place] [address] IDNon 04-07-2024 IDN Normal [facility] Laboratory - Coagulationon 0 04-07-2024 PT Coag (Bld) [Time] 11.1 s 9.0 - 1 2.0 s [facility] No Panel Informationon 04-07 [facility] Nursing Noteon 04-07-2024 Nursing Note NO changes to hepari n infusion at this time. Normal [facility] PROTHROMBIN TIMEon INR Coag (PPP) [Relative time] 1.0 {INR} Normal 0.9-1.1 [facility] Comment on above: [...] Myocardial Infarction Performed By: #### [place] AB325, [id number] ####Drapery Counselor: VELMA VALADEZ ([phone])[address] PT Coag (PPP) [Time] 11.1 s Normal 9.0-12.0 [facility] Comment on above: Performed By: #### [place] AB325, [id number] ####Drapery Counselor: VELMA VALADEZ ([phone])[facility] ([facility])[address] [place] [address] PT Coag (Bld) [Time]on 04-07 INR Coag (PPP) [Relative time] 1.0 {INR} 0.9 - 1.1 [facility] Comment on above: Recommended Anticoag ulant [...] Interpretation and review of laboratory results Normal [facility] [employer] Progress Noteon 04-07-2024 Progress [facility] Progress Note Normal [facility] [employer] [facility] Progress Note Normal [facility] aPTT Coag (Bld) [Time]on aPTT Coag (PPP) [Time] 54.7 s High 20.0 - 30.5 s [facility] Interpretation and review of laboratory results Abnormal [facility] NOTE: The therapeuti c time for Heparin anticoagulation, based on Xa activity inhibition, is an APTT of 46-80 seconds. [facility] aPTT Coag (PPP) [Time] 77.7 s High 20.0 - 30.5 s [facility] Interpretation and review of laboratory results Abnormal [facility] NOTE: The therapeuti c time for Heparin anticoagulation, based on Xa activity inhibition, is an APTT of 46-80 seconds. [facility] [id number] 04-06-2024 [id number] Normal [facility] APTTon 04-06-2024 aPTT Coag (Bld) [Time] 43.3 s High 20.0-30.5 [facility] Comment on above: Result Comment: BUBBA Garcia COMMENTS:NOTE: The therapeutic time for Heparin anticoagulation, based on Xa activity inhibition, is an APTT of 46-80 seconds. Performed By: #### L [id number] ####Drapery Counselor: VELMA VALADEZ ([phone])[facility] ([address] aPTT Coag (Bld) [Time] 97.6 s High 20.0-30.5 [facility] Comment on above: Result Comment: BUBBA Garcia COMMENTS:NOTE: The therapeutic time for Heparin anticoagulation, based on Xa activity inhibition, is an APTT of 46-80 seconds. Performed By: #### L [id number] ####Drapery Counselor: VELMA VALADEZ ([phone])[facility] ([facility])[address] [place] [address] Anesthesia Noteon 04-06-2024 Anesthesia Note Normal [facility] Anesthesia Note Normal [facility] BASIC METABOLIC PANELon 03-19 Anion gap [Moles/Vol] 4 mmol/L Normal 3-13 [facility] Comment on above: Performed By: #### L [id number] ####Drapery Counselor: VELMA VALADEZ ([phone])[facility] ([facility])[address] [place] [address] Calcium [Mass/Vol] 8.9 mg/dL Normal 8.4-10.4 [facility] Comment on above: Performed By: #### L AB15 ####Drapery Counselor: VELMA VALADEZ ([phone])[facility] ([facility])[address] [place] [address] Chloride [Moles/Vol] 114 mmol/L High 98-107 [facility] Comment on above: Performed By: #### L AB15 ####Drapery Counselor: VELMA VALADEZ ([phone])[facility] ([facility])[address] [place] [address] CO2 [Moles/Vol] 18 mmol/L Low 22-30 [facility] Comment on above: Performed By: #### L AB15 ####Drapery Counselor: VELMA VALADEZ ([phone])[facility])[address] [place] [address] Creatinine [Mass/Vol] 0.96 mg/dL Normal 0.52-1.04 [facility] Comment on above: Performed By: #### L AB15 ####Drapery Counselor: VELMA VALADEZ ([phone])[facility] ([facility])[address] [place] [address] [place] GLOMERULAR FILTRATION RATE ML/MIN/1.73 SQ M.PREDICTED 58.5 mL/min/1.73m*2 Low >60.0 [facility] Comment on above: Result Comment: Calc ulation based on the Chronic Kidney Disease Epidemiology Collaboration (CKD-EPI) equation refit without adjustment for race Performed By: #### L AB15 ####Drapery Counselor: VELMA VALADEZ ([phone])[facility] ([facility])[address] [place] [address] Glucose [Mass/Vol] 97 mg/dL Normal 70-100 [facility] Comment on above: Performed By: #### L AB15 ####Drapery Counselor: VELMA VALADEZ ([phone])[facility])[address] [place] [address] Potassium [Moles/Vol] 4.6 mmol/L Normal 3.5-5.1 [facility] Comment on above: Performed By: #### L AB15 ####Drapery Counselor: VELMA VALADEZ ([phone])[facility] ([facility])[address] [place] [address] Sodium [Moles/Vol] 135 mmol/L Normal 135-145 [facility] Comment on above: Performed By: #### L AB15 ####Drapery Counselor: VELMA VALADEZ ([phone])[facility] ([facility])[address] [place] [address] Urea nitrogen [Mass/Vol] 17 mg/dL Normal 7-17 [facility] Comment on above: Performed By: #### L AB15 ####Drapery Counselor: VELMA VALADEZ ([phone])[facility] ([facility])[address] [place] [address] BLOOD TYPE AND SCREEN GELon 04-06-2024 ABO GROUPING AB Normal [facility] Comment on above: Performed By: #### L [id number] ####Drapery Counselor: VELMA VALADEZ ([phone])[facility] ([facility])[address] [place] [address] RH TYPE IN BLOOD Positive Normal [facility] Comment on above: Performed By: #### L [id number] ####Drapery Counselor: VELMA VALADEZ ([phone])[facility] ([facility])[address] [place] [address] Basic metabolic 1998 panelon 04-06-2024 Anion gap [Moles/Vol] 4 mmol/L 3 - 13 mmol/L [facility] Calcium [Mass/Vol] 8.9 mg/dL 8.4 - 10. 4 mg/dL [facility] Chloride [Moles/Vol] 114 mmol/L High 98 - 10 7 mmol/L [facility] CO2 [Moles/Vol] 18 mmol/L Low 22 - 30 mmol/L [facility] Creatinine [Mass/Vol] 0.96 mg/dL 0.52 - 1.04 mg/dL [facility] GFR/1.73 sq M.predicted (S/P/Bld) [Vol rate/Area] 58.5 mL/min Low - PINF [facility] Comment on above: Calculation based on the Chronic Kidney Disease Epidemiology Collaboration (CKD-EPI) equation refit without adjustment for race Glucose [Mass/Vol] 97 mg/dL 70 - 100 mg/dL [facility] Interpretation and review of laboratory results Abnormal [facility] Potassium [Moles/Vol] 4.6 mmol/L 3.5 - 5.1 mmol/L [facility] Sodium [Moles/Vol] 135 mmol/L 135 - 145 mmol/L [facility] Urea nitrogen [Mass/Vol] 17 mg/dL 7 - 17 mg/dL [facility] Blood type and Crossmatch pa juan (Bld)on 04-06-2024 ABO group Nom (Bld) AB [facility] Blood group antibody screen GEL Ql Negative [facility] D Ag Ql (RBC) Positive [facility] Healt h [facility] CARECOORDon 04-06-2024 CARECOORD Normal [facility] CARECOHANOVER Normal [facility] CBC W Auto Differential pane l (Bld)on 04-06-2024 Basophils (Bld) [#/Vol] 0.1 10*3/uL 0.0 - 0.2 10*3/uL [facility] Basophils/100 WBC (Bld) 1.1 % 0.0 - 2.0 % [facility] Eosinophils (Bld) [#/Vol] 0.1 10*3/uL 0.0 - 0.5 10*3/uL [facility] Eosinophils/100 WBC (Bld) 2.7 % 0.0 - 6.0 % [facility] Erythrocyte distribution width (RBC) [Ratio] 14.3 % 11.5 - 15.0 % [facility] Hematocrit (Bld) [Volume fraction] 29.8 % Low 35.0 - 47.0 % [facility] Hemoglobin (Bld) [Mass/Vol] 9.7 g/dL Low 11.7 - 16.0 g/dL [facility] Immature granulocytes (Bld) [#/Vol] 0.0 10*3/uL NINF - 0.1 10*3/uL [facility] Immature granulocytes/100 WBC (Bld) 0.2 % 0.0 - 2.0 % [facility] Interpretation and review of laboratory results Abnormal [facility] Lymphocytes (Bld) [#/Vol] 1.5 10*3/uL 1.0 - 4.3 10*3/uL [facility] Lymphocytes/100 WBC (Bld) 33.0 % 15.0 - 45.0 % [facility] MCH (RBC) [Entitic mass] 30.3 pg 26.0 - 34.0 pg [facility] MCHC (RBC) [Mass/Vol] 32.6 % 30.5 - 36.0 % [facility] MCV (RBC) [Entitic vol] 93.1 fL 77.0 - 99.0 fL [facility] Monocytes (Bld) [#/Vol] 0.5 10*3/uL 0.0 - 0.9 10*3/uL [facility] Monocytes/100 WBC (Bld) 10.5 % 5.0 - 13.0 % [facility] Neutrophils (Bld) [#/Vol] 2.4 10*3/uL 1.8 - 7.5 10*3/uL [facility] Neutrophils/100 WBC (Bld) 52.5 % 38.0 - 82.0 % [facility] Nucleated RBC/100 WBC (Bld) [Ratio] 0.0 % [facility] Platelet mean volume (Bld) [Entitic vol] 10.4 fL 9.0 - 12.7 fL [facility] Platelets (Bld) [#/Vol] 207 10*3/uL 140 - 440 10*3/uL [facility] RBC (Bld) [#/Vol] 3.20 10*6/uL Low 3.80 - 5.2 0 10*6/uL [facility] WBC (Bld) [#/Vol] 4.5 10*3/uL 3.6 - 10.7 10*3/uL [facility] CBC WITH AUTO DIFFERENTIALon 04-06-2024 Basophils (Bld) [#/Vol] 0.1 10*3/uL Normal 0.0-0.2 [facility] Comment on above: Performed By: #### L [id number] ####Drapery Counselor: VELMA VALADEZ ([phone])[address] Basophils/100 WBC (Bld) 1.1 % Normal 0.0-2.0 S [facility] Comment on above: Performed By: #### L [id number] ####Drapery Counselor: VELMA VALADEZ ([phone])[facility])[address] [place] [address] Eosinophils (Bld) [#/Vol] 0.1 10*3/uL Normal 0.0-0.5 [facility] Comment on above: Performed By: #### L [id number] ####Drapery Counselor: VELMA VALADEZ ([phone])[facility])[address] [place] [address] Eosinophils/100 WBC (Bld) 2.7 % Normal 0.0-6.0 [facility] Comment on above: Performed By: #### L [id number] ####Drapery Counselor: VELMA VALADEZ ([phone])[address] Erythrocyte distribution width (RBC) [Ratio] 14.3 % Normal 11.5-15.0 [facility] Comment on above: Performed By: #### L [id number] ####Drapery Counselor: VELMA VALADEZ ([phone])[facility])[address] [place] [address] Hematocrit (Bld) [Volume fraction] 29.8 % Low 35.0-47.0 [facility] Comment on above: Performed By: #### L [id number] ####Drapery Counselor: VELMA VALADEZ ([phone])[address] Hemoglobin (Bld) [Mass/Vol] 9.7 g/dL Low 11.7-16.0 [facility] Comment on above: Performed By: #### L [id number] ####Drapery Counselor: VELMA VALADEZ ([phone])[facility])[address] [place] [address] IMMATURE GRANS % 0.2 % Normal 0.0-2.0 [facility] Comment on above: Performed By: #### L [id number] ####Drapery Counselor: VELMA VALADEZ ([phone])[address] IMMATURE GRANS ABSOLUTE 0.0 10*3/uL Normal <0.1 [facility] Comment on above: Performed By: #### L [id number] ####Drapery Counselor: VELMA VALADEZ ([phone])[facility])[address] [place] [address] Lymphocytes (Bld) [#/Vol] 1.5 10*3/uL Normal 1.0-4.3 [facility] Comment on above: Performed By: #### L [id number] ####Drapery Counselor: VELMA VALADEZ ([phone])[facility])[address] [place] [address] Lymphocytes/100 WBC (Bld) 33.0 % Normal 15.0-45.0 [facility] Comment on above: Performed By: #### L [id number] ####Drapery Counselor: VELMA VALADEZ ([phone])[facility])[address] [place] [address] MCH (RBC) [Entitic mass] 30.3 pg Normal 26.0-34.0 [facility] Comment on above: Performed By: #### L [id number] ####Drapery Counselor: VELMA VALADEZ ([phone])[facility])[address] [place] [address] MCHC 32.6 % Normal 30.5-36.0 [facility] Comment on above: Performed By: #### L [id number] ####Drapery Counselor: VELMA VALADEZ ([phone])[facility])[address] [place] [address] MCV (RBC) [Entitic vol] 93.1 fL Normal 77.0-99.0 [facility] Comment on above: Performed By: #### L [id number] ####Drapery Counselor: VELMA VALADEZ ([phone])[facility])[address] [place] [address] Monocytes (Bld) [#/Vol] 0.5 10*3/uL Normal 0.0-0.9 [facility] Comment on above: Performed By: #### L [id number] ####Drapery Counselor: VELMA VALADEZ ([phone])[facility] ([facility])[address] [place] [address] Monocytes/100 WBC (Bld) 10.5 % Normal 5.0-13.0 [facility] Comment on above: Performed By: #### L [id number] ####Drapery Counselor: VELMA VALADEZ ([phone])[facility] ([facility])[address] [place] [address] NEUTROPHILS ABSOLUTE 2.4 10*3/uL Normal 1.8-7.5 [facility] Comment on above: Performed By: #### L [id number] ####Drapery Counselor: VELMA VALADEZ ([phone])[facility] ([facility])[address] [place] [address] Neutrophils/100 WBC (Bld) 52.5 % Normal 38.0-82.0 [facility] Comment on above: Performed By: #### L [id number] ####Drapery Counselor: VELMA VALADEZ ([phone])[facility] ([facility])[address] [place] [address] NRBC 0.0 /100 WBCs Normal 0.0-2.0 [facility] Comment on above: Performed By: #### L [id number] ####Drapery Counselor: VELMA VALADEZ ([phone])[facility] ([facility])[address] [place] [address] Platelet mean volume (Bld) [Entitic vol] 10.4 fL Normal 9.0-12.7 [facility] Comment on above: Performed By: #### L [id number] ####Drapery Counselor: VELMA VALADEZ ([phone])[facility] ([facility])[address] [place] [address] Platelets (Bld) [#/Vol] 207 10*3/uL Normal 140-440 [facility] Comment on above: Performed By: #### L [id number] ####Drapery Counselor: VELMA [phone])[facility] ([facility])[address] [place] [address] RBC (Bld) [#/Vol] 3.20 10*6/uL Low 3.80-5.20 [facility] Comment on above: Performed By: #### L [id number] ####Drapery Counselor: VELMA VALADEZ ([phone])[facility] [place] [address] WBC (Bld) [#/Vol] 4.5 10*3/uL Normal 3.6-10.7 [facility] Comment on above: Performed By: #### L [id number] ####Drapery Counselor: VELMA VALADEZ ([phone])[facility])[address] [place] [address] No Panel Informationon 04-06 There is no interpretation needed for this exam. IMAGING Nursing Noteon 04-06-2024 Nursing Note Patient report rader d to 4N RN and denies any further questions. Patient resting comfortably and no signs of distress. Per resident patient to lay flat for 2 hours and restart heparin GTT at 1215. Transport notified. Normal [facility] Op Noteon 04-06-2024 Op Note Normal [facility] Progress Noteon 04-06-2024 Progress Note Normal [facility] Progress [facility] Progress [facility] aPTT Coag (Bld) [Time]on aPTT Coag (PPP) [Time] 43.3 s High 20.0 - 30.5 s [facility] Interpretation and review of laboratory results Abnormal [facility] NOTE: The therapeuti c time for Heparin anticoagulation, based on Xa activity inhibition, is an APTT of 46-80 seconds. [facility] aPTT Coag (PPP) [Time] 97.6 s High 20.0 - 30.5 s [facility] Interpretation and review of laboratory results Abnormal [facility] NOTE: The therapeuti c time for Heparin anticoagulation, based on Xa activity inhibition, is an APTT of 46-80 seconds. [facility] 36on 04-05-2024 36 Surgery: Inpatient R LE venous mechanical thrombectomy Date of surgery: 04/06/24 Pre-testing: inpatient CPT codes: 52072 ICD 10: I82.401 Post-op or OV: Adriane to schedule Reps: Selvin Elaine) notified 04/05/24 Normal [facility] APTTon 04-05-2024 aPTT Coag (Bld) [Time] 76.6 s High 20.0-30.5 [facility] Comment on above: Result Comment: BUBBA Garcia COMMENTS:NOTE: The therapeutic time for Heparin anticoagulation, based on Xa activity inhibition, is an APTT of 46-80 seconds. Performed By: #### L [id number], [id number] ####Drapery Counselor: VELMA VALADEZ ([phone])[address] aPTT Coag (Bld) [Time] 69.9 s High 20.0-30.5 [facility] Comment on above: Result Comment: BUBBA Garcia COMMENTS:NOTE: The therapeutic time for Heparin anticoagulation, based on Xa activity inhibition, is an APTT of 46-80 seconds. Performed By: #### L [id number] ####Drapery Counselor: VELMA VALADEZ ([phone])[address] aPTT Coag (Bld) [Time] 88.8 s High 20.0-30.5 [facility] Comment on above: Result Comment: BUBBA Garcia COMMENTS:NOTE: The therapeutic time for Heparin anticoagulation, based on Xa activity inhibition, is an APTT of 46-80 seconds. Performed By: #### L [id number], [id number] ####Drapery Counselor: VELMA VALADEZ ([phone])[address] aPTT Coag (Bld) [Time] 109.7 s High 20.0-30.5 [facility] Comment on above: Result Comment: BUBBA Garcia COMMENTS:NOTE: The therapeutic time for Heparin anticoagulation, based on Xa activity inhibition, is an APTT of 46-80 seconds. Performed By: #### L [id number] ####Drapery Counselor: VELMA VALADEZ ([phone])[facility] ([facility])[address] [place] [address] BASIC METABOLIC PANELon 03-18 Anion gap [Moles/Vol] 3 mmol/L Normal 3-13 [facility] Comment on above: Performed By: #### L AB15 ####Drapery Counselor: VELMA VALADEZ ([phone])[facility] ([facility])[address] [place] [address] Calcium [Mass/Vol] 8.7 mg/dL Normal 8.4-10.4 [facility] Comment on above: Performed By: #### L AB15 ####Drapery Counselor: VELMA VALADEZ ([phone])[facility] ([facility])[address] [place] [address] Chloride [Moles/Vol] 113 mmol/L High 98-107 [facility] Comment on above: Performed By: #### L AB15 ####Drapery Counselor: VELMA VALADEZ ([phone])[facility])[address] [place] [address] CO2 [Moles/Vol] 17 mmol/L Low 22-30 [facility] Comment on above: Performed By: #### L AB15 ####Drapery Counselor: VELMA VALADEZ ([phone])[facility] ([facility])[address] [place] [address] Creatinine [Mass/Vol] 1.12 mg/dL High 0.52-1.04 [facility] Comment on above: Performed By: #### L AB15 ####Drapery Counselor: VELMA VALADEZ ([phone])[facility] ([facility])[address] [place] [address] [place] GLOMERULAR FILTRATION RATE ML/MIN/1.73 SQ M.PREDICTED 48.6 mL/min/1.73m*2 Low >60.0 [facility] Comment on above: Result Comment: Calc ulation based on the Chronic Kidney Disease Epidemiology Collaboration (CKD-EPI) equation refit without adjustment for race Performed By: #### L AB15 ####Drapery Counselor: VELMA VALADEZ ([phone])[facility] ([facility])[address] [place] [address] Glucose [Mass/Vol] 102 mg/dL High 70-100 [facility] Comment on above: Performed By: #### L AB15 ####Drapery Counselor: VELMA VALADEZ ([phone])[facility] ([facility])[address] [place] [address] Potassium [Moles/Vol] 4.8 mmol/L Normal 3.5-5.1 [facility] Comment on above: Performed By: #### L AB15 ####Drapery Counselor: VELMA VALADEZ ([phone])[facility] ([facility])[address] [place] [address] Sodium [Moles/Vol] 133 mmol/L Low 135-145 [facility] Comment on above: Performed By: #### L AB15 ####Drapery Counselor: VELMA VALADEZ ([phone])[facility] ([facility])[address] [place] [address] Urea nitrogen [Mass/Vol] 25 mg/dL High 7-17 [facility] Comment on above: Performed By: #### L AB15 ####Drapery Counselor: VELMA VALADEZ ([phone])[facility])[address] [place] [address] Basic metabolic 1998 panelon 04-05-2024 Anion gap [Moles/Vol] 3 mmol/L 3 - 13 mmol/L [facility] Calcium [Mass/Vol] 8.7 mg/dL 8.4 - 10. 4 mg/dL [facility] Chloride [Moles/Vol] 113 mmol/L High 98 - 10 7 mmol/L [facility] CO2 [Moles/Vol] 17 mmol/L Low 22 - 30 mmol/L [facility] Creatinine [Mass/Vol] 1.12 mg/dL High 0.52 - 1.04 mg/dL [facility] GFR/1.73 sq M.predicted (S/P/Bld) [Vol rate/Area] 48.6 mL/min Low - PINF [facility] Comment on above: Calculation based on the Chronic Kidney Disease Epidemiology Collaboration (CKD-EPI) equation refit without adjustment for race Glucose [Mass/Vol] 102 mg/dL High 70 - 100 mg/dL [facility] Interpretation and review of laboratory results Abnormal [facility] Potassium [Moles/Vol] 4.8 mmol/L 3.5 - 5.1 mmol/L [facility] Sodium [Moles/Vol] 133 mmol/L Low 135 - 145 mmol/L [facility] Urea nitrogen [Mass/Vol] 25 mg/dL High 7 - 17 mg/dL [facility] CARECOORDon 04-05-[address] [facility] Normal [facility] CBC W Auto Differential pane l (Bld)on 04-05-2024 Basophils (Bld) [#/Vol] 0.1 10*3/uL 0.0 - 0.2 10*3/uL [facility] Basophils/100 WBC (Bld) 1.0 % 0.0 - 2.0 % [facility] Eosinophils (Bld) [#/Vol] 0.2 10*3/uL 0.0 - 0.5 10*3/uL [facility] Eosinophils/100 WBC (Bld) 2.9 % 0.0 - 6.0 % [facility] Erythrocyte distribution width (RBC) [Ratio] 14.4 % 11.5 - 15.0 % [facility] Hematocrit (Bld) [Volume fraction] 32.3 % Low 35.0 - 47.0 % [facility] Hemoglobin (Bld) [Mass/Vol] 10.6 g/dL Low 11.7 - 16.0 g/dL [facility] Immature granulocytes (Bld) [#/Vol] 0.0 10*3/uL NINF - 0.1 10*3/uL [facility] Immature granulocytes/100 WBC (Bld) 0.3 % 0.0 - 2.0 % [facility] Interpretation and review of laboratory results Abnormal [facility] Lymphocytes (Bld) [#/Vol] 1.7 10*3/uL 1.0 - 4.3 10*3/uL [facility] Lymphocytes/100 WBC (Bld) 27.5 % 15.0 - 45.0 % [facility] MCH (RBC) [Entitic mass] 30.7 pg 26.0 - 34.0 pg [facility] MCHC (RBC) [Mass/Vol] 32.8 % 30.5 - 36.0 % [facility] MCV (RBC) [Entitic vol] 93.6 fL 77.0 - 99.0 fL [facility] Monocytes (Bld) [#/Vol] 0.6 10*3/uL 0.0 - 0.9 10*3/uL [facility] Monocytes/100 WBC (Bld) 9.0 % 5.0 - 13.0 % [facility] Neutrophils (Bld) [#/Vol] 3.6 10*3/uL 1.8 - 7.5 10*3/uL [facility] Neutrophils/100 WBC (Bld) 59.3 % 38.0 - 82.0 % [facility] Nucleated RBC/100 WBC (Bld) [Ratio] 0.0 % [facility] Platelet mean volume (Bld) [Entitic vol] 10.1 fL 9.0 - 12.7 fL [facility] Platelets (Bld) [#/Vol] 204 10*3/uL 140 - 440 10*3/uL [facility] RBC (Bld) [#/Vol] 3.45 10*6/uL Low 3.80 - 5.2 0 10*6/uL [facility] WBC (Bld) [#/Vol] 6.1 10*3/uL 3.6 - 10.7 10*3/uL [facility] CBC WITH AUTO DIFFERENTIALon 04-05-2024 Basophils (Bld) [#/Vol] 0.1 10*3/uL Normal 0.0-0.2 [facility] Comment on above: Performed By: #### L [id number] ####Drapery Counselor: VELMA VALADEZ ([phone])[facility])[address] [place] [address] Basophils/100 WBC (Bld) 1.0 % Normal 0.0-2.0 [facility] Comment on above: Performed By: #### L [id number] ####Drapery Counselor: VELMA VALADEZ ([phone])[facility])[address] [place] [address] Eosinophils (Bld) [#/Vol] 0.2 10*3/uL Normal 0.0-0.5 [facility] Comment on above: Performed By: #### L [id number] ####Drapery Counselor: VELMA VALADEZ ([phone])[facility])[address] [place] [address] Eosinophils/100 WBC (Bld) 2.9 % Normal 0.0-6.0 [facility] Comment on above: Performed By: #### L [id number] ####Drapery Counselor: VELMA VALADEZ ([phone])[facility])[address] [place] [address] Erythrocyte distribution width (RBC) [Ratio] 14.4 % Normal 11.5-15.0 [facility] Comment on above: Performed By: #### L [id number] ####Drapery Counselor: VELMA VALADEZ ([phone])[address] Hematocrit (Bld) [Volume fraction] 32.3 % Low 35.0-47.0 [facility] Comment on above: Performed By: #### L [id number] ####Drapery Counselor: VELMA VALADEZ ([phone])[address] Hemoglobin (Bld) [Mass/Vol] 10.6 g/dL Low 11.7-16.0 [facility] Comment on above: Performed By: #### L [id number] ####Drapery Counselor: VELMA VALADEZ ([phone])[facility])[address] [place] [address] IMMATURE GRANS % 0.3 % Normal 0.0-2.0 [facility] Comment on above: Performed By: #### L [id number] ####Drapery Counselor: VELMA VALADEZ ([phone])[address] IMMATURE GRANS ABSOLUTE 0.0 10*3/uL Normal <0.1 [facility] Comment on above: Performed By: #### L [id number] ####Drapery Counselor: VELMA [phone])[facility])[address] [place] [address] Lymphocytes (Bld) [#/Vol] 1.7 10*3/uL Normal 1.0-4.3 [facility] Comment on above: Performed By: #### L [id number] ####Drapery Counselor: VELMA VALADEZ ([phone])[facility])[address] [place] [address] Lymphocytes/100 WBC (Bld) 27.5 % Normal 15.0-45.0 [facility] Comment on above: Performed By: #### L [id number] ####Drapery Counselor: VELMA VALADEZ ([phone])[facility])[address] [place] [address] MCH (RBC) [Entitic mass] 30.7 pg Normal 26.0-34.0 [facility] Comment on above: Performed By: #### L [id number] ####Drapery Counselor: VELMA VALADEZ ([phone])[facility])[address] [place] [address] MCHC 32.8 % Normal 30.5-36.0 [facility] Comment on above: Performed By: #### L [id number] ####Drapery Counselor: VELMA VALADEZ ([phone])[facility])[address] [place] [address] MCV (RBC) [Entitic vol] 93.6 fL Normal 77.0-99.0 [facility] Comment on above: Performed By: #### L [id number] ####Drapery Counselor: VELMA VALADEZ ([phone])[facility])[address] [place] [address] Monocytes (Bld) [#/Vol] 0.6 10*3/uL Normal 0.0-0.9 [facility] Comment on above: Performed By: #### L [id number] ####Drapery Counselor: VELMA VALADEZ ([phone])[facility])[address] [place] [address] [place] Monocytes/100 WBC (Bld) 9.0 % Normal 5.0-13.0 [facility] Comment on above: Performed By: #### L [id number] ####Drapery Counselor: VELMA VALADEZ ([phone])[facility] ([facility])[address] [place] [address] NEUTROPHILS ABSOLUTE 3.6 10*3/uL Normal 1.8-7.5 [facility] Comment on above: Performed By: #### L [id number] ####Drapery Counselor: VELMA VALADEZ ([phone])[facility] ([facility])[address] [place] [address] Neutrophils/100 WBC (Bld) 59.3 % Normal 38.0-82.0 [facility] Comment on above: Performed By: #### L [id number] ####Drapery Counselor: VELMA VALADEZ ([phone])[facility] ([facility])[address] [place] [address] NRBC 0.0 /100 WBCs Normal 0.0-2.0 [facility] Comment on above: Performed By: #### L [id number] ####Drapery Counselor: VELMA VALADEZ ([phone])[facility] ([facility])[address] [place] [address] Platelet mean volume (Bld) [Entitic vol] 10.1 fL Normal 9.0-12.7 [facility] Comment on above: Performed By: #### L [id number] ####Drapery Counselor: VELMA VALADEZ ([phone])[facility] ([facility])[address] [place] [address] Platelets (Bld) [#/Vol] 204 10*3/uL Normal 140-440 [facility] Comment on above: Performed By: #### L [id number] ####Drapery Counselor: VELMA VALADEZ ([phone])[facility] ([facility])[address] [place] [address] RBC (Bld) [#/Vol] 3.45 10*6/uL Low 3.80-5.20 [facility] Comment on above: Performed By: #### L [id number] ####Drapery Counselor: VELMA VALADEZ ([phone])[facility])[address] [place] [address] WBC (Bld) [#/Vol] 6.1 10*3/uL Normal 3.6-10.7 [facility] Comment on above: Performed By: #### L [id number] ####Drapery Counselor: VELMA VALADEZ ([phone])[facility])[address] [place] [address] IDNon 04-05-2024 IDN The patient is Moderately Stable - Low risk of patient condition declining or worsening The patient's goals for the shift include met The clinical goals for the shift include met Normal [facility] - Coagulationon 0 04-05-2024 PT Coag (Bld) [Time] 11.4 s 9.0 - 1 2.0 s [facility] PT Coag (Bld) [Time] 11.9 s 9.0 - 1 2.0 s [facility] No Panel Informationon 04-05 [facility] PROTHROMBIN TIMEon INR Coag (PPP) [Relative time] 1.0 {INR} Normal 0.9-1.1 [facility] Comment on above: Performed By: #### L [id number], [id number] ####Drapery Counselor: VELMA VALADEZ ([phone])[facility])[address] [place] [address] PT Coag (PPP) [Time] 11.4 s Normal 9.0-12.0 [facility] Comment on above: Performed By: #### L [id number], [id number] ####Drapery Counselor: VELMA VALADEZ ([phone])[facility])[address] [place] [address] INR Coag (PPP) [Relative time] 1.1 {INR} Normal 0.9-1.1 [facility] Comment on above: [...] Myocardial Infarction Performed By: #### L [id number], [id number] ####Drapery Counselor: VELMA VALADEZ ([phone])[facility] ([facility])[address] [place] [address] PT Coag (PPP) [Time] 11.9 s Normal 9.0-12.0 [facility] Comment on above: Performed By: #### [place] AB320, [id number] ####Drapery Counselor: VELMA VALADEZ ([phone])[facility] ([facility])[address] [place] [address] PT Coag (Bld) [Time]on 04-05 INR Coag (PPP) [Relative time] 1.0 {INR} 0.9 - 1.1 [facility] Interpretation and review of laboratory results Normal [facility] INR Coag (PPP) [Relative time] 1.1 {INR} 0.9 - 1.1 [facility] Comment on above: Recommended Anticoag ulant [...] Interpretation and review of laboratory results Normal [facility] Progress Noteon 04-05-2024 Progress Note Normal [facility] Nutrition rescreen completed. Chart reviewed. Patient to be monitored and followed by the diet r and d lab technician. FADI Harmon Normal [facility] Progress Note Normal [facility] Progress Note Normal [facility] aPTT Coag (Bld) [Time]on aPTT Coag (PPP) [Time] 76.6 s High 20.0 - 30.5 s [facility] Interpretation and review of laboratory results Abnormal [facility] NOTE: The therapeuti c time for Heparin anticoagulation, based on Xa activity inhibition, is an APTT of 46-80 seconds. [facility] aPTT Coag (PPP) [Time] 69.9 s High 20.0 - 30.5 s [facility] Interpretation and review of laboratory results Abnormal [facility] NOTE: The therapeuti c time for Heparin anticoagulation, based on Xa activity inhibition, is an APTT of 46-80 seconds. [facility] aPTT Coag (PPP) [Time] 88.8 s High 20.0 - 30.5 s [facility] Interpretation and review of laboratory results Abnormal [facility] NOTE: The therapeuti c time for Heparin anticoagulation, based on Xa activity inhibition, is an APTT of 46-80 seconds. [facility] aPTT Coag (Bld) [Time]Ordere d By: Juni Millard on 04-05-2024 aPTT Coag (PPP) [Time] 109.7 s High 20.0 - 30.5 s [facility] Interpretation and review of laboratory results Abnormal [facility] NOTE: The therapeuti c time for Heparin anticoagulation, based on Xa activity inhibition, is an APTT of 46-80 seconds. [facility] [id number] 04-04-2024 [id number] Normal [facility] [id number] Normal [facility] APTTon 04-04-2024 aPTT Coag (Bld) [Time] 81.8 s High 20.0-30.5 [facility] Comment on above: Result Comment: BUBBA Garcia COMMENTS:NOTE: The therapeutic time for Heparin anticoagulation, based on Xa activity inhibition, is an APTT of 46-80 seconds. Performed By: #### L [id number] ####Drapery Counselor: VELMA VALADEZ ([phone])[facility] ([address] aPTT Coag (Bld) [Time] 81.4 s High 20.0-30.5 [facility] Comment on above: Result Comment: BUBBA Garcia COMMENTS:NOTE: The therapeutic time for Heparin anticoagulation, based on Xa activity inhibition, is an APTT of 46-80 seconds. Performed By: #### L [id number] ####Drapery Counselor: VELMA VALADEZ ([phone])[facility])[address] [place] [address] aPTT Coag (Bld) [Time] 132.2 s Critically high 20.0-30. 5 [facility] Comment on above: Result Comment: BUBBA Garcia COMMENTS:NOTE: The therapeutic time for Heparin anticoagulation, based on Xa activity inhibition, is an APTT of 46-80 seconds. Performed By: #### L [id number] ####Drapery Counselor: VELMA VALADEZ ([phone])[facility] ([facility])[address] [place] [address] BASIC METABOLIC PANELon - Anion gap [Moles/Vol] 8 mmol/L Normal 3-13 [facility] Comment on above: Performed By: #### L AB15 ####Drapery Counselor: VELMA VALADEZ ([phone])[facility] ([facility])[address] [place] [address] Calcium [Mass/Vol] 9.3 mg/dL Normal 8.4-10.4 [facility] Comment on above: Performed By: #### L AB15 ####Drapery Counselor: VELMA VALADEZ ([phone])[facility] ([facility])[address] [place] [address] [place] Chloride [Moles/Vol] 110 mmol/L High 98-107 [facility] Comment on above: Performed By: #### L AB15 ####Drapery Counselor: VELMA VALADEZ ([phone])[facility] ([facility])[address] [place] [address] [place] CO2 [Moles/Vol] 18 mmol/L Low 22-30 [facility] Comment on above: Performed By: #### L AB15 ####Drapery Counselor: VELMA VALADEZ ([phone])[facility] ([facility])[address] [place] [address] Creatinine [Mass/Vol] 1.45 mg/dL High 0.52-1.04 [facility] Comment on above: Performed By: #### L AB15 ####Drapery Counselor: VELMA VALADEZ ([phone])[facility])[address] [place] [address] GLOMERULAR FILTRATION RATE ML/MIN/1.73 SQ M.PREDICTED 35.6 mL/min/1.73m*2 Low >60.0 [facility] Comment on above: Result Comment: Calc ulation based on the Chronic Kidney Disease Epidemiology Collaboration (CKD-EPI) equation refit without adjustment for race Performed By: #### L AB15 ####Drapery Counselor: VELMA VALADEZ ([phone])[facility] ([facility])[address] [place] [address] Glucose [Mass/Vol] 100 mg/dL Normal 70-100 [facility] Comment on above: Performed By: #### L AB15 ####Drapery Counselor: VELMA VALADEZ ([phone])[facility] ([facility])[address] [place] [address] Potassium [Moles/Vol] 4.5 mmol/L Normal 3.5-5.1 [facility] Comment on above: Performed By: #### L AB15 ####Drapery Counselor: VELMA VALADEZ ([phone])[facility] ([facility])[address] [place] [address] Sodium [Moles/Vol] 135 mmol/L Normal 135-145 [facility] Comment on above: Performed By: #### L AB15 ####Drapery Counselor: VELMA VALADEZ ([phone])[facility] ([facility])[address] [place] [address] [place] Urea nitrogen [Mass/Vol] 30 mg/dL High 7-17 [facility] Comment on above: Performed By: #### L AB15 ####Drapery Counselor: VELMA VALADEZ ([phone])[facility] ([facility])[address] [place] [address] Basic metabolic 1998 panelOr dered By: Marielle Garcia on 04-04-2024 Anion gap [Moles/Vol] 8 mmol/L 3 - 13 mmol/L [facility] Calcium [Mass/Vol] 9.3 mg/dL 8.4 - 10. 4 mg/dL [facility] Chloride [Moles/Vol] 110 mmol/L High 98 - 10 7 mmol/L [facility] CO2 [Moles/Vol] 18 mmol/L Low 22 - 30 mmol/L [facility] Creatinine [Mass/Vol] 1.45 mg/dL High 0.52 - 1.04 mg/dL [facility] GFR/1.73 sq M.predicted (S/P/Bld) [Vol rate/Area] 35.6 mL/min Low - PINF [facility] Comment on above: Calculation based on the Chronic Kidney Disease Epidemiology Collaboration (CKD-EPI) equation refit without adjustment for race Glucose [Mass/Vol] 100 mg/dL 70 - 100 mg/dL [facility] Interpretation and review of laboratory results Abnormal [facility] Potassium [Moles/Vol] 4.5 mmol/L 3.5 - 5.1 mmol/L [facility] Sodium [Moles/Vol] 135 mmol/L 135 - 145 mmol/L [facility] Urea nitrogen [Mass/Vol] 30 mg/dL High 7 - 17 mg/dL [facility] CARECOORDon 04-04-2024 CARECOHANOVER Normal [facility] CBC W Auto Differential pane l (Bld)on 04-04-2024 Basophils (Bld) [#/Vol] 0.1 10*3/uL 0.0 - 0.2 10*3/uL [facility] Basophils/100 WBC (Bld) 0.7 % 0.0 - 2.0 % [facility] Eosinophils (Bld) [#/Vol] 0.3 10*3/uL 0.0 - 0.5 10*3/uL [facility] Eosinophils/100 WBC (Bld) 3.2 % 0.0 - 6.0 % [facility] Erythrocyte distribution width (RBC) [Ratio] 14.2 % 11.5 - 15.0 % [facility] Hematocrit (Bld) [Volume fraction] 38.8 % 35.0 - 47.0 % [facility] Hemoglobin (Bld) [Mass/Vol] 12.5 g/dL 11.7 - 16.0 g/dL [facility] Immature granulocytes (Bld) [#/Vol] 0.1 10*3/uL High NINF - 0.1 10*3/uL [facility] [employer] Immature granulocytes/100 WBC (Bld) 0.6 % 0.0 - 2.0 % [facility] Interpretation and review of laboratory results Abnormal [facility] Lymphocytes (Bld) [#/Vol] 1.6 10*3/uL 1.0 - 4.3 10*3/uL [facility] Lymphocytes/100 WBC (Bld) 19.2 % 15.0 - 45.0 % [facility] MCH (RBC) [Entitic mass] 29.7 pg 26.0 - 34.0 pg [facility] MCHC (RBC) [Mass/Vol] 32.2 % 30.5 - 36.0 % [facility] MCV (RBC) [Entitic vol] 92.2 fL 77.0 - 99.0 fL [facility] Monocytes (Bld) [#/Vol] 0.8 10*3/uL 0.0 - 0.9 10*3/uL [facility] Monocytes/100 WBC (Bld) 9.9 % 5.0 - 13.0 % [facility] Neutrophils (Bld) [#/Vol] 5.3 10*3/uL 1.8 - 7.5 10*3/uL [facility] Neutrophils/100 WBC (Bld) 66.4 % 38.0 - 82.0 % [facility] Nucleated RBC/100 WBC (Bld) [Ratio] 0.0 % [facility] Platelet mean volume (Bld) [Entitic vol] 10.0 fL 9.0 - 12.7 fL [facility] Platelets (Bld) [#/Vol] 266 10*3/uL 140 - 440 10*3/uL [facility] RBC (Bld) [#/Vol] 4.21 10*6/uL 3.80 - 5.2 0 10*6/uL [facility] WBC (Bld) [#/Vol] 8.1 10*3/uL 3.6 - 10.7 10*3/uL [facility] CBC WITH AUTO DIFFERENTIALon 04-04-2024 Basophils (Bld) [#/Vol] 0.1 10*3/uL Normal 0.0-0.2 [facility] Comment on above: Performed By: #### L [id number] ####Drapery Counselor: VELMA VALADEZ ([phone])[facility])[address] [place] [address] Basophils/100 WBC (Bld) 0.7 % Normal 0.0-2.0 [facility] Comment on above: Performed By: #### L [id number] ####Drapery Counselor: VELMA VALADEZ ([phone])[facility])[address] [place] [address] Eosinophils (Bld) [#/Vol] 0.3 10*3/uL Normal 0.0-0.[address] [facility] Comment on above: Performed By: #### L [id number] ####Drapery Counselor: VELMA VALADEZ ([phone])[facility])[address] [place] [address] Eosinophils/100 WBC (Bld) 3.2 % Normal 0.0-6.0 [facility] Comment on above: Performed By: #### L [id number] ####Drapery Counselor: VELMA VALADEZ ([phone])[facility])[address] [place] [address] Erythrocyte distribution width (RBC) [Ratio] 14.2 % Normal 11.5-15.0 [facility] Comment on above: Performed By: #### L [id number] ####Drapery Counselor: VELMA VALADEZ ([phone])[facility])[address] [place] [address] Hematocrit (Bld) [Volume fraction] 38.8 % Normal 35.0-47.0 [facility] Comment on above: Performed By: #### L [id number] ####Drapery Counselor: VELMA VALADEZ ([phone])[facility])[address] [place] [address] Hemoglobin (Bld) [Mass/Vol] 12.5 g/dL Normal 11.7-16.0 [facility] Comment on above: Performed By: #### L [id number] ####Drapery Counselor: VELMA [phone])[facility] ([facility])[address] [place] [address] IMMATURE GRANS % 0.6 % Normal 0.0-2.0 [facility] Comment on above: Performed By: #### L [id number] ####Drapery Counselor: VELMA VALADEZ ([phone])[facility])[address] [place] [address] IMMATURE GRANS ABSOLUTE 0.1 10*3/uL High <0.1 [facility] Comment on above: Performed By: #### L [id number] ####Drapery Counselor: VELMA VALADEZ ([phone])[facility])[address] [place] [address] Lymphocytes (Bld) [#/Vol] 1.6 10*3/uL Normal 1.0-4.3 [facility] Comment on above: Performed By: #### L [id number] ####Drapery Counselor: VELMA VALADEZ ([phone])[facility])[address] [place] [address] Lymphocytes/100 WBC (Bld) 19.2 % Normal 15.0-45.0 [facility] Comment on above: Performed By: #### L [id number] ####Drapery Counselor: VELMA VALADEZ ([phone])[facility])[address] [place] [address] MCH (RBC) [Entitic mass] 29.7 pg Normal 26.0-34.0 [facility] Comment on above: Performed By: #### L [id number] ####Drapery Counselor: VELMA VALADEZ ([phone])[facility])[address] [place] [address] MCHC 32.2 % Normal 30.5-36.0 [facility] Comment on above: Performed By: #### L [id number] ####Drapery Counselor: VELMA VALADEZ ([phone])[facility])[address] [place] [address] MCV (RBC) [Entitic vol] 92.2 fL Normal 77.0-99.0 [facility] Comment on above: Performed By: #### L [id number] ####Drapery Counselor: VELMA VALADEZ ([phone])[facility])[address] [place] [address] Monocytes (Bld) [#/Vol] 0.8 10*3/uL Normal 0.0-0.9 [facility] Comment on above: Performed By: #### L [id number] ####Drapery Counselor: VELMA VALADEZ ([phone])[facility] ([facility])[address] [place] [address] Monocytes/100 WBC (Bld) 9.9 % Normal 5.0-13.0 S [facility] Comment on above: Performed By: #### L [id number] ####Drapery Counselor: VELMA VALADEZ ([phone])[facility])[address] [place] [address] NEUTROPHILS ABSOLUTE 5.3 10*3/uL Normal 1.8-7.5 [facility] Comment on above: Performed By: #### L [id number] ####Drapery Counselor: VELMA VALADEZ ([phone])[facility])[address] [place] [address] Neutrophils/100 WBC (Bld) 66.4 % Normal 38.0-82.0 [facility] Comment on above: Performed By: #### L [id number] ####Drapery Counselor: VELMA VALADEZ ([phone])[facility] ([facility])[address] [place] [address] NRBC 0.0 /100 WBCs Normal 0.0-2.0 [facility] Comment on above: Performed By: #### L [id number] ####Drapery Counselor: VELMA VALADEZ ([phone])[facility])[address] [place] [address] Platelet mean volume (Bld) [Entitic vol] 10.0 fL Normal 9.0-12.7 [facility] Comment on above: Performed By: #### L [id number] ####Drapery Counselor: VELMA VALADEZ ([phone])[facility] ([facility])[address] [place] [address] Platelets (Bld) [#/Vol] 266 10*3/uL Normal 140-440 [facility] Comment on above: Performed By: #### L [id number] ####Drapery Counselor: VELMA VALADEZ ([phone])[facility] ([facility])[address] [place] [address] RBC (Bld) [#/Vol] 4.21 10*6/uL Normal 3.80-5.20 [facility] Comment on above: Performed By: #### L [id number] ####Drapery Counselor: VELMA VLAADEZ ([phone])[facility] ([facility])[address] [place] [address] WBC (Bld) [#/Vol] 8.1 10*3/uL Normal 3.6-10.7 [facility] Comment on above: Performed By: #### L [id number] ####Drapery Counselor: VELMA VALADEZ ([phone])[facility] ([facility])[address] [place] [address] Consulton 04-04-2024 Consult [facility] Consult [facility] ECG 12-LEADon 04-04-2024 ECG 12-LEAD IMPRESSION: Atrial fibrillation Borderline T abnormalities, inferior leads Compared to ECG 08/28/11 Sinus rhythm no longer noted Electronically Signed On 04-04-2024 03:48:37 EDT by Sourav Swenson [facility] ED Nursing Noteon 04-04-2024 ED Nursing Note Report to Delia Bond RN 04/04/24 1299 [facility] ED Nursing Note Multiple attempts ma sheri to call report to [facility] with phone number provided by hydropress operator, but when phone number dialed RN only gets busy tone. Will try again. Shannon Bond RN 04/04/24 [id number] [facility] ED Nursing Note [facility] at bedside to transport pt to [facility]. Paperwork with EMS Shannon Bond RN 04/04/24 [id number] Normal [facility] IDNon 04-04-2024 IDN The patient is Moderately Stable - Low risk of patient condition declining or worsening The patient's goals for the shift include safety The clinical goals for the shift include therapeutic aptt Normal [facility] IDN Normal [facility] No Panel Informationon 04-04 Left Pop Rfx 1.1 s [facility] Acute extensive DVT in the right [...] popliteal vein. 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 During the study 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 and transverse views were obtained. Pulsed wave doppler was performed. The exam was performed with the patient in the supine position. Overall the study quality was adequate. Study was technically difficult due to: bowel gas. CV CPACS Left MICHELLE 0.62 [facility] Left dorsalis pedis BP 78 mmHg [facility] Left posterior tibial 86 mmHg [facility] Right MICHELLE 0.55 [facility] Right arm BP 139 mmHg [facility] Right dorsalis pedis BP 65 mmHg [facility] Right posterior tibial 76 mmHg [facility] Right side findings: Resting MICHELLE [...] of RLE discovered just before PVR testing. 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 Security Administrator Details A spectral Doppler analysis ultrasound was [...] 04-04-2024 03:48:37 EDT by Sourav Swenson [employer] No Panel InformationOrdered By: Sourav Swenson on 04-04-2024 P [place] 0 degrees [employer] Work Phone: MO Interval 0 ms [employer] Work Phone: QRS [place] 40 degrees [employer] Work Phone: QRSD Interval 86 ms [employer] Work Phone: QT Interval 352 ms [facility] Work Phone: QTC Interval 411 ms [facility] [employer] Work Phone: T Wave [place] -3 degrees [employer] Work Phone: [employer] Work Phone: Progress Noteon 04-04-2024 Progress Note Normal [facility] Progress Note Normal [facility] Progress Note Normal [facility] Vital signsOrdered By: Cathy Swenson on 04-04-2024 Heart rate 82 /min bpm [facility] Work Phone: aPTT Coag (Bld) [Time]on aPTT Coag (PPP) [Time] 81.8 s High 20.0 - 30.5 s [facility] Interpretation and review of laboratory results Abnormal [facility] NOTE: The therapeuti c time for Heparin anticoagulation, based on Xa activity inhibition, is an APTT of 46-80 seconds. [facility] aPTT Coag (PPP) [Time] 81.4 s High 20.0 - 30.5 s [facility] Interpretation and review of laboratory results Abnormal [facility] NOTE: The therapeuti c time for Heparin anticoagulation, based on Xa activity inhibition, is an APTT of 46-80 seconds. [facility] aPTT Coag (Bld) [Time]Ordere d By: Devika Eisenberg on 04-04-2024 aPTT Coag (PPP) [Time] 132.2 s Critically high 20 .0 - 30.5 s [facility] Interpretation and review of laboratory results Abnormal [facility] NOTE: The therapeuti c time for Heparin anticoagulation, based on Xa activity inhibition, is an APTT of 46-80 seconds. [facility] APTTon 04-03-2024 aPTT Coag (Bld) [Time] 25.6 s Normal 20.0-30.5 [facility] Comment on above: Result Comment: ORDE R COMMENTS:NOTE: The therapeutic time for Heparin anticoagulation, based on Xa activity inhibition, is an APTT of 46-80 seconds. Performed By: #### L [id number] ####Drapery Counselor: MARYLOU MAY ([phone])[facility] ([facility])[address] CBC (HEMOGRAM)on 04-03-2024 Erythrocyte distribution width (RBC) [Ratio] 14.4 % Normal 11.5-15.0 [facility] Comment on above: Performed By: #### L [id number] ####Drapery Counselor: MARYLOU MAY ([phone])[facility] HOSPITALSimran VELASQUEZKANU ([facility])[address] Hematocrit (Bld) [Volume fraction] 38.6 % Normal 35.0-47.0 [facility] Comment on above: Performed By: #### L [id number] ####Drapery Counselor: MARYLOU MAY ([phone])[facility] HOSPITALSimran DEETH ([facility])[address] [place] [address] Hemoglobin (Bld) [Mass/Vol] 12.7 g/dL Normal 11.7-16.0 [facility] Comment on above: Performed By: #### L [id number] ####Drapery Counselor: MARYLOU MAY ([phone])[facility] HOSPITALSimran [facility]AL[facility] ([facility])[address] MCH (RBC) [Entitic mass] 30.4 pg Normal 26.0-34.0 [facility] Comment on above: Performed By: #### L [id number] ####Drapery Counselor: MARYLOU MAY ([phone])[facility] HOSPITALSimran [email or web address]][place] (SB[facility]AB)[address] MCHC 32.9 % Normal 30.5-36.0 [facility] Comment on above: Performed By: #### L [id number] ####Drapery Counselor: MARYLOU MAY ([phone])[facility] HOSPITALSimran [facility] [[email or web address]][place] ([facility])[address] [place] [address] MCV (RBC) [Entitic vol] 92.3 fL Normal 77.0-99.0 [facility] Comment on above: Performed By: #### L [id number] ####Drapery Counselor: MARYLOU MAY ([phone])[facility] HOSPITALSimran VELASQUEZKANU ([facility])[address] Platelet mean volume (Bld) [Entitic vol] 10.0 fL Normal 9.0-12.7 [facility] Comment on above: Performed By: #### L [id number] ####Drapery Counselor: MARYLOU MAY ([phone])[facility] HOSPITALSimran [place] ([facility])[address] Platelets (Bld) [#/Vol] 283 10*3/uL Normal 140-440 [facility] Comment on above: Performed By: #### L [id number] ####Drapery Counselor: MARYLOU MAY ([phone])[facility] HOSPITALSimran [facility] ([facility])[address] RBC (Bld) [#/Vol] 4.18 10*6/uL Normal 3.80-5.20 [facility] Comment on above: Performed By: #### L [id number] ####Drapery Counselor: MARYLOU MAY ([phone])[facility] HOSPITALSimran [facility] [[email or web address]]N ([facility])[address] WBC (Bld) [#/Vol] 9.3 10*3/uL Normal 3.6-10.7 [facility] Comment on above: Performed By: #### L [id number] ####Drapery Counselor: MARYLOU MAY ([phone])[facility] HOSPITALA [facility] [[email or web address]]N (SB[facility])[address] CBC panel Auto (Bld)on 04-03 Erythrocyte distribution width (RBC) [Ratio] 14.4 % 11.5 - 15.0 % [facility] Hematocrit (Bld) [Volume fraction] 38.6 % 35.0 - 47.0 % [facility] Hemoglobin (Bld) [Mass/Vol] 12.7 g/dL 11.7 - 16.0 g/dL [facility] Interpretation and review of laboratory results Normal [facility] MCH (RBC) [Entitic mass] 30.4 pg 26.0 - 34.0 pg [facility] MCHC (RBC) [Mass/Vol] 32.9 % 30.5 - 36.0 % [facility] MCV (RBC) [Entitic vol] 92.3 fL 77.0 - 99.0 fL [facility] Platelet mean volume (Bld) [Entitic vol] 10.0 fL 9.0 - 12.7 fL [facility] Platelets (Bld) [#/Vol] 283 10*3/uL 140 - 440 10*3/uL [facility] RBC (Bld) [#/Vol] 4.18 10*6/uL 3.80 - 5.2 0 10*6/uL [facility] WBC (Bld) [#/Vol] 9.3 10*3/uL 3.6 - 10.7 10*3/uL [facility] COMPREHENSIVE METABOLIC PANE Gilberto 04-03-2024 Albumin [Mass/Vol] 4.3 g/dL Normal 3.5-5.0 [facility] Comment on above: Performed By: #### Weston DAWSON, [id number], LAB17 ####Drapery Counselor: MARYLOU MAY ([phone])[facility] ([facility])[address] ALP [Catalytic activity/Vol] 91 U/L Normal 38-126 [facility] Comment on above: Performed By: #### Weston DAWSON [id number], LAB17 ####Drapery Counselor: MARYLOU MAY ([phone])[facility] ([facility])[address] ALT [Catalytic activity/Vol] 10 U/L Normal 0-34 [facility] Comment on above: Performed By: #### L AB103, [id number], LAB17 ####Drapery Counselor: MARYLOU MAY ([phone])[facility] ([facility])[address] Anion gap [Moles/Vol] 9 mmol/L Normal 3-13 [facility] Comment on above: Performed By: #### L AB103, [id number], LAB17 ####Drapery Counselor: MARYLOU MAY ([phone])[facility] HOSPITALA [place] ([facility])[address] [place] [address] [place] AST [Catalytic activity/Vol] 19 U/L Normal 15-46 [facility] Comment on above: Performed By: #### L SAMIR, [id number], LAB17 ####Drapery Counselor: MARYLOU MAY ([phone])[facility] HOS[facility]ITALA [facility] [[email or web address]]N ([facility])[address] Bilirubin [Mass/Vol] 1.1 mg/dL Normal 0.2-1.3 [facility] Comment on above: Performed By: #### Weston DAWSON, [id number], LAB17 ####Drapery Counselor: MARYLOU MAY ([phone])[facility] ([facility])[address] Calcium [Mass/Vol] 9.3 mg/dL Normal 8.4-10.4 [facility] Comment on above: Performed By: #### Weston DAWSON, [id number], LAB17 ####Drapery Counselor: MARYLOU MAY ([phone])[facility] H[facility]ITALA [facility] ([facility])[address] [place] [address] [place] Chloride [Moles/Vol] 107 mmol/L Normal 98-107 [facility] Comment on above: Performed By: #### Weston DAWSON, [id number], LAB17 ####Drapery Counselor: MARYLOU MAY ([phone])[facility]ITALA [place] ([facility])[address] [place] [address] [place] CO2 [Moles/Vol] 20 mmol/L Low 22-30 [facility] Comment on above: Performed By: #### L SAMIR, [id number], LAB17 ####Drapery Counselor: MARYLOU MAY ([phone])[facility] ([facility])[address] [place] [address] [place] Creatinine [Mass/Vol] 1.54 mg/dL High 0.52-1.04 [facility] Comment on above: Performed By: #### Weston DAWSON, [id number], LAB17 ####Drapery Counselor: MARYLOU MAY ([phone])[facility] ([facility])[address] GLOMERULAR FILTRATION RATE ML/MIN/1.73 SQ M.PREDICTED 33.2 mL/min/1.73m*2 Low >60.0 [facility] Comment on above: Result Comment: Calc ulation based on the Chronic Kidney Disease Epidemiology Collaboration (CKD-EPI) equation refit without adjustment for race Performed By: #### Weston DAWSON, [id number], LAB17 ####Drapery Counselor: MARYLOU MAY ([phone])[facility] ([facility])[address] [place] [address] Glucose [Mass/Vol] 115 mg/dL High 70-100 [facility] Comment on above: Performed By: #### Weston DAWSON, [id number], LAB17 ####Drapery Counselor: MARYLOU MAY ([phone])[facility] ([facility])[address] [place] [address] [place] Potassium [Moles/Vol] 5.7 mmol/L High 3.5-5.1 [facility] Comment on above: Performed By: #### Weston DAWSON, [id number], LAB17 ####Drapery Counselor: MARYLOU MAY ([phone])[facility] ([facility])[address] [place] [address] [place] Protein [Mass/Vol] 7.7 g/dL Normal 6.3-8.2 [facility] Comment on above: Performed By: #### Weston DAWSON, [id number], LAB17 ####Drapery Counselor: MARYLOU MAY ([phone])[facility] ([facility])[address] [place] [address] [place] Sodium [Moles/Vol] 135 mmol/L Normal 135-145 [facility] Comment on above: Performed By: #### Weston DAWSON, [id number], LAB17 ####Drapery Counselor: MARYLOU MAY ([phone])[facility] ([facility])[address] Urea nitrogen [Mass/Vol] 29 mg/dL High 7- [facility] Comment on above: Performed By: #### L AB103, [id number], LAB17 ####Drapery Counselor: MARYLOU MAY ([phone])[facility] ([facility])[address] HEAD WO IV CONTRASTon CT HEAD WO IV CONTRAST Normal [facility] CT Head WO contraston 2023 1. No acute finding. Chronic left cerebellar infarct.. Report Dictated on Electronically Signed By: Toño Tang MD Electronically Signed Date/Time: 04/03/2024 9:21 PM EDT [facility] Patient Name: MEL CARVER RD : 1940 [...] midline shift. No hydrocephalus. Left globe prosthesis. [facility] Toño Tang MD - 04/03/2024 Patient Name: EML POP : 1940 Exam Date/Time: 04/03/2024 21:06 [...] Electronically Signed Date/Time: 04/03/2024 9:21 PM EDT [facility] Radiology Study observation (narrative) [facility] CT Head WO contrastOrdered B y: Toño Tang on 04-03-2024 [facility] Work Phone: CTA AORTA BL ILIOFEMORAL W W Oon 04-03-2024 CTA AORTA BL ILIOFEMORAL W WO Normal [facility] CTA Thoracic and Abdominal A zachary and Bilateral Runoff Vessels WO and W contrast Cheryl 04-03-2024 1. Severe lower extremity atherosclerotic disease. 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 2. 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 3. Severe diverticulosis. Report Dictated on Electronically Signed By: Toño Tang MD Electronically Signed Date/Time: 04/03/2024 9:36 PM EDT [facility] convoy [employer] SYSTEM Patient Name: MEL CARVER RD : 1940 [facility]#: [id number] Exam Date/Time: 04/03/2024 21:14 Procedure: CTA AORTA [...] the mid to distal lower leg. [facility] RADIOLOGY SYSTEM Toño Tang MD - 04/03/2024 Patient Name: MEL POP : 1940 [id number] Exam Date/Time: 04/03/2024 21:14 Procedure: CTA AORTA [...] Electronically Signed Date/Time: 04/03/2024 9:36 PM EDT [facility] Radiology Study observation (narrative) [facility] metabolic 1998 panelon 04-03-2024 Albumin [Mass/Vol] 4.3 g/dL 3.5 - 5.0 g/dL [facility] ALP [Catalytic activity/Vol] 91 U/L 38 - 126 U/L [facility] ALT [Catalytic activity/Vol] 10 U/L 0 - 34 U/L [facility] Anion gap [Moles/Vol] 9 mmol/L 3 - 13 mmol/L [facility] AST [Catalytic activity/Vol] 19 U/L 15 - 46 U/L [facility] Bilirubin [Mass/Vol] 1.1 mg/dL 0.2 - 1 .3 mg/dL [facility] Calcium [Mass/Vol] 9.3 mg/dL 8.4 - 10. 4 mg/dL [facility] Chloride [Moles/Vol] 107 mmol/L 98 - 10 7 mmol/L [facility] CO2 [Moles/Vol] 20 mmol/L Low 22 - 30 mmol/L [facility] Creatinine [Mass/Vol] 1.54 mg/dL High 0.52 - 1.04 mg/dL [facility] GFR/1.73 sq M.predicted (S/P/Bld) [Vol rate/Area] 33.2 mL/min Low - PINF [facility] Comment on above: Calculation based on the Chronic Kidney Disease Epidemiology Collaboration (CKD-EPI) equation refit without adjustment for race Glucose [Mass/Vol] 115 mg/dL High 70 - 100 mg/dL [facility] Interpretation and review of laboratory results Abnormal [facility] Potassium [Moles/Vol] 5.7 mmol/L High 3.5 - 5.1 mmol/L [facility] Protein [Mass/Vol] 7.7 g/dL 6.3 - 8.2 g/dL [facility] Sodium [Moles/Vol] 135 mmol/L 135 - 145 mmol/L [facility] Urea nitrogen [Mass/Vol] 29 mg/dL High 7 - 17 mg/dL [facility] ED Nursing Noteon 04-03-2024 ED Nursing Note Normal [facility] ED Provider Noteon ED Provider Note Normal [facility] - Chemistry and C hemistry - challengeon 04-03-2024 Troponin I.cardiac [Mass/Vol] 0.014 ng/mL NINF - 0.034 ng/mL [facility] Magnesium [Mass/Vol] 2.3 mg/dL 1.6 - 2 .3 mg/dL [facility] Laboratory - Coagulationon 0 04-03-2024 aPTT Coag (PPP) [Time] 26.7 s 20.0 - 30.5 s [facility] INR Coag (PPP) [Relative time] 1.0 {INR} 0.9 - 1.1 [facility] Comment on above: Recommended Anticoag ulant [...] 11.7 s 9.0 - 1 2.0 s [facility] MAGNESIUMon 04-03-2024 Magnesium [Mass/Vol] 2.3 mg/dL Normal 1.6-2.3 [facility] Comment on above: Performed By: #### L [id number], [id number], LAB17 ####Drapery Counselor: MARYLOU MAY ([phone])[facility] ROJELIO (SB[facility])[address] [place] [address] Magnesium [Mass/Vol]on 04-03 Interpretation and review of laboratory results Normal [facility] No Panel Informationon 04-03 [facility] Interpretation and review of laboratory results Normal [facility] PROTIME AND APTTon aPTT Coag (Bld) [Time] 26.7 s Normal 20.0-30.5 [facility] Comment on above: Performed By: #### L [id number] ####Drapery Counselor: MARYLOU MAY ([phone])[facility] ([facility])[address] [place] [address] INR Coag (PPP) [Relative time] 1.0 {INR} Normal 0.9-1.1 [facility] Comment on above: [...] prevent Myocardial Infarction Performed By: #### L [id number] ####Drapery Counselor: MARYLOU MAY ([phone])[facility] ([facility])[address] [place] [address] PT Coag (PPP) [Time] 11.7 s Normal 9.0-12.0 [facility] Comment on above: Performed By: #### L [id number] ####Drapery Counselor: MARYLOU MAY ([phone])[facility] ([facility])[address] [place] [address] TROPONIN Ion 04-03-2024 Troponin I.cardiac [Mass/Vol] 0.014 ng/mL Normal <0.034 [facility] Comment on above: Result Comment: BUBBA Garcia COMMENTS:Patients with high levels of Biotin oral intake (ie >5 mg/day) may have falsely decreased Troponin levels. Performed By: #### L AB103, [id number], LAB17 ####Drapery Counselor: MARYLOU MAY ([phone])[facility] ([facility])[address] [place] [address] Troponin I.cardiac [Mass/Vol ]on 04-03-2024 Interpretation and review of laboratory results Normal [facility] Patients with high levels of Biotin oral intake (ie >5 mg/day) may have falsely decreased Troponin levels. [facility] aPTT Coag (Bld) [Time]on aPTT Coag (PPP) [Time] 25.6 s 20.0 - 30.5 s [facility] Interpretation and review of laboratory results Normal [facility] NOTE: The therapeuti c time for Heparin anticoagulation, based on Xa activity inhibition, is an APTT of 46-80 seconds. [facility] MR Lower leg - left WO [...] MD Electronically Signed Date/Time: 06/16/2023 8:10 AM [facility] SYSTEM Patient Name: MEL [...] and lateral ankle resulting from ORIF hardware. [facility] Dimas Woodward MD - 06/16/2023 Patient Name: MEL POP : 1940 [facility]#: [id number] Exam Date/Time: 06/15/2023 16:21 Procedure: MR TIBIA [...] Electronically Signed Date/Time: 06/16/2023 8:10 AM EST [facility] MR Lower leg - left WO and W contrast IVOrdered By: Dimas Woodward on 06-16-2023 [facility] Work Phone: MR Lower leg - left WO and W contrast Cheryl 06-15-2023 Radiology Study observation (narrative) Inna Shannon alth No Panel Informationon 05-24 No evidence of venous thrombus in the left lower extremity. Report Dictated on Electronically Signed By: Yasmany Whyte MD Electronically Signed Date/Time: 05/24/2023 11:42 AM EST [facility] RADIOLOGY SYSTEM Patient [...] augmentation and normal response to Valsalva maneuver. [facility] SYSTEM Yasmany Whyte MD - 05/24/2023 Patient [...] Electronically Signed Date/Time: 05/24/2023 11:42 AM EST [facility] CT Neck W contrast Cheryl 08-2 5-2023 [...] Electronically Signed Date/Time: 03/11/2023 10:28 AM EDT [facility] CT Neck W contrast IVOrdered By: Efrain Yi on 03-11-2023 [facility] Work Phone: CT Neck W contrast Cheryl 02-16 Radiology Study observation (narrative) [facility] alth US Head and neck [...] Electronically Signed Date/Time: 02/24/2023 8:23 AM EDT [place] SYSTEM Patient Name: MEL CARVER RD : 1940 [id number] Exam Date/Time: 02/22/2023 13:44 Procedure: US HEAD [...] measuring 1.8 x 1.6 x 1.4 cm. [place] [facility] Ryan Mccollum MD - 02/24/2023 Patient Name: MEL POP : 1940 [facility] [id number] Exam Date/Time: 02/22/2023 13:44 Procedure: US HEAD [...] Electronically Signed Date/Time: 02/24/2023 8:23 AM EDT [facility] US Head and neck soft tissue Ordered By: Ryan Mccollum on 02-24-2023 [facility] Work Phone: [phone] US Head and neck soft tissue on 02-22-2023 Radiology Study observation (narrative) [facility] CONSULT PROGon 06-29-2022 CONSULT PROG HNO ID: [id number] Author: Nemo Petty APRN.STORES CLERK Service: Wound/Ostomy Author Type: Nurse Practitioner Type: Consult Progress Note Filed: 06/29/2022 12:51 PM Note Text: WOUND CARE SERVICE PROGRESS LINER REROLL TENDER NOTE SERVICE DATE: 06/29/2022 SERVICE TIME: 10:20 TIME SPENT (minutes): 30 REASON FOR CONSULT: follow up wound care visit to reassess skin/wounds CHIEF COMPLAINT: right finger wound Subjective HISTORY OF PRESENT ILLNESS: Ms. Jose Alberto Castillo is a 81 year old female who is seen today with Delia Bruno, Wound/pool manager, as a follow up wound care visit [...] Wound Image Site Assessment Red;Intact Allie-Wound Assessment [place] Drainage Amount None Treatments Protective Barrier Ointment Dressing Foam- Adhesive Active Orders Date Order Priority Status Authorizing Provider 06/28/22 1423 zinc oxide 20 % ointment Active Iwona Chu DO 06/21/22 1248 DRESSING CARE (SPECIFY) ([place]) Routine Active Fidel Carmen APRN.STORES CLERK - Specify:: Apply allevyn foam to coccyx, [...] 06/29/2022 10:23 AM Wound Image Site Assessment Red;[place] Allie-Wound Assessment Intact Wound Length (cm) 2 cm Wound Width (cm) 2.5 cm Wound Surface Area (cm2) 5 cm2 Wound Depth (cm) 0.1 cm Wound Volume (cm3) 0.5 (more content not included)... Normal [facility] NUTRITIONon 06-29-2022 NUTRITION HNO ID: [id number] Author: Iwona Pelayo RD Service: Nutrition Therapy Author Type: Registered Dietitian Type: Nutrition Filed: 06/29/2022 1:38 PM Note Text: NUTRITION THERAPY PROGRESS NOTE SERVICE DATE: 06/29/2022 SERVICE TIME: 13:30 Nutrition Assessment: Recommended Malnutrition Diagnosis: No Malnutrition Identified (06/23/22 1109 : Parul Mcallister RD) Estimated kilocalorie needs: 5433-7884 Calorie Calculation Method: 25-30 kcals/kg Estimated protein [...] PT EDon 06-29-2022 PT ED HNO ID: [id number] Author: Joana Tolbert RPh Service: Pharmacy Author [...] information Outcomes not met: N/A Joana Tolbert [facility] 06-28-2022 [facility] HNO ID: [id number] Author: Iwona Chu DO Service: Hospital Medicine [...] micropuncture needle and serially upsized to a 5-St Lucian sheath. A venogram was then performed, which [...] time, the sheath was upsized to an 8-St Lucian sheath. An intravascular ultrasound was performed. This [...] NURSING PROGon 06-28-2022 NURSING PROG HNO ID: [id number] Author: John Castro RN Service: Nursing Author [...] above: Performed By: #### 3 2355-0 #### [facility] CLIA [id number] [address] CONSULT PROGon 06-25-2022 CONSULT PROG HNO ID: [id number] Author: Cirilo Yip RPh Service: Pharmacy Author Type: Pharmacist Type: Consult Progress Note Filed: 06/25/2022 1:49 PM Note Text: PHARMACY ORAL ANTICOAGULATION PATIENT EDUCATION NOTE Oral anticoagulant: apixaban Indication: DVT/PE Patient New to medication: Yes LEARNERS Persons Present: Patient Primary Learner: Patient Oral Surgery Physician Present: No Patient educated on the [...] (Unsp spec) CULTURE, RESPIRATORY: Moderate Normal respiratory ardha present GRAM STAIN: Moderate Mixed oral radha Few Polymorphonuclear leukocytes Few Epithelial cells Abnormal [facility] Comment on above: Performed By: #### 3 2355-0 ####[facility] LABORATORYCLIA [id number] [place] [address] [place] Basic metabolic 2000 panelon 06-24-2022 Anion gap [Moles/Vol] 10 mmol/L Normal 9-18 [facility] Comment on above: Order Comment: Speci men Type: BLOOD SPECIMENOrdering Facility: [facility] Address: [address] [address] Performed By: #### 2 4321-2, 17968-9 ####[facility] LABORATORYCLIA [id number] [place] [address] [place] Calcium [Mass/Vol] 9.0 mg/dL Normal 8.5-10.2 [facility] Comment on above: Order Comment: Speci men Type: BLOOD SPECIMENOrdering Facility: [facility] Address: [address] [address] Performed By: #### 2 4321-2, 75846-5 ####[facility] LABORATORYCLIA [id number] [place] [address] [place] Chloride [Moles/Vol] 103 mmol/L Normal 97-105 [facility] Comment on above: Order Comment: Speci men Type: BLOOD SPECIMENOrdering Facility: [facility] Address: [address] [address] Performed By: #### 2 4321-2, 77737-1 ####[facility] LABORATORYCLIA [id number] [place] [address] [place] CO2 [Moles/Vol] 23 mmol/L Normal 22-30 [facility] Comment on above: Order Comment: Speci men Type: BLOOD SPECIMENOrdering Facility: [facility] Address: [address] [address] Performed By: #### 2 4321-2, 90051-9 ####[facility] [id number] [address] [place] Creatinine [Mass/Vol] 0.73 mg/dL Normal 0.58-0.96 [facility] Comment on above: Order Comment: Rhina mason Type: BLOOD SPECIMENOrdering Facility: [facility] Address: [address] [place] [address] Performed By: #### 2 4321-2, 47790-9 ####[facility]ITAL[facility] [id number] [address] ESTIMATED GLOMERULAR FILTRATION RATE 82 mL/min/1.73m??? Normal >=60 [facility] Comment on above: Order Comment: Rhina mason Type: BLOOD SPECIMENOrdering Facility: [facility] Address: [address] [place] [address] Result Comment: Isa mated Glomerular Filtration Rate [...] actual GFR. Performed By: #### 2 4321-2, 75480-9 ####[facility]ITAL[facility] [id number] [address] [place] Glucose [Mass/Vol] 165 mg/dL High 74-99 [facility] Comment on above: Order Comment: Rhina mason Type: BLOOD SPECIMENOrdering Facility: [facility] Address: [address] [place] [address] Result Comment: The [place] [employer] (ADA) [...] 2016.39(Suppl 1). Performed By: #### 2 4321-2, 08644-2 ####[facility] LABORATORYCLIA [id number] [address] STATES OF [facility] Potassium [Moles/Vol] 5.0 mmol/L Normal 3.7-5.1 [facility] Comment on above: Order Comment: Speci men Type: BLOOD SPECIMENOrdering Facility: [facility] Address: [address] [address] Performed By: #### 2 4321-2, 36615-4 ####[facility] LABORATORYCLIA [id number] [address] STATES [facility] Sodium [Moles/Vol] 136 mmol/L Normal 136-144 [facility] Comment on above: Order Comment: Samiri isabella Type: BLOOD SPECIMENOrdering Facility: [facility] Address: [address] [address] Performed By: #### 2 4321-2, 60273-7 ####[facility] LABORATORYCLIA [id number] [address] Urea nitrogen [Mass/Vol] 14 mg/dL Normal 7-21 [facility] Comment on above: Order Comment: Samiri men Type: BLOOD SPECIMENOrdering Facility: [facility] Address: [address] [address] Performed By: #### 2 4321-2, 39022-8 ####[facility] LABORATORYCLIA [id number] [address] CBC panel Auto (Bld)on 06-24 Erythrocyte distribution width (RBC) [Ratio] 17.0 % High 11.5-15.0 [facility] Comment on above: Order Comment: Speci men Type: BLOOD SPECIMENOrdering Facility: [facility] Address: [address] [address] Performed By: #### 5 8410-2 ####[facility] LABORATORYCLIA [id number] [address] Hematocrit (Bld) [Volume fraction] 27.2 % Low 36.0-46.0 [facility] Comment on above: Order Comment: Speci men Type: BLOOD SPECIMENOrdering Facility: [facility] Address: [address] [place] [address] Performed By: #### 5 8410-2 ####[facility] LABORATORYCLIA [id number] [address] OF [facility] Hemoglobin (Bld) [Mass/Vol] 8.9 g/dL Low 11.5-15.5 [facility] Comment on above: Order Comment: Speci men Type: BLOOD SPECIMENOrdering Facility: [facility] Address: [address] [place] [address] Performed By: #### 5 8410-2 ####[facility] LABORATORYCLIA [id number] [address] MCH (RBC) [Entitic mass] 30.9 pg Normal 26.0-34.0 [facility] Comment on above: Order Comment: Speci men Type: BLOOD SPECIMENOrdering Facility: [facility] Address: [address] [place] [address] Performed By: #### 5 8410-2 ####[facility] LABORATORYCLIA [id number] [address] [place] MCHC (RBC) [Mass/Vol] 32.7 g/dL Normal 30.5-36.0 [facility] Comment on above: Order Comment: Speci men Type: BLOOD SPECIMENOrdering Facility: [facility] Address: [address] [place] [address] Performed By: #### 5 8410-2 ####[facility] LABORATORYCLIA [id number] [address] [place] MCV (RBC) [Entitic vol] 94.4 fL Normal 80.0-100.0 [facility] Comment on above: Order Comment: Speci men Type: BLOOD SPECIMENOrdering Facility: [facility] Address: [address] [place] [address] Performed By: #### 5 8410-2 ####[facility] LABORATORYCLIA [id number] [address] [place] Nucleated RBC (Bld) [#/Vol] 0.03 10*3/uL High <0.01 [facility] Comment on above: Order Comment: Speci men Type: BLOOD SPECIMENOrdering Facility: [facility] Address: [address] [place] [address] Performed By: #### 5 8410-2 ####[facility] LABORATORYCLIA [id number] [address] [place] Platelet mean volume (Bld) [Entitic vol] 9.8 fL Normal 9.0-12.7 [facility] Comment on above: Order Comment: Speci men Type: BLOOD SPECIMENOrdering Facility: [facility] Address: [address] [place] [address] Performed By: #### 5 8410-2 ####[facility] LABORATORYCLIA [id number] [address] [place] Platelets (Bld) [#/Vol] 241 10*3/uL Normal 150-400 [facility] Comment on above: Order Comment: Speci men Type: BLOOD SPECIMENOrdering Facility: [facility] Address: [address] [address] Performed By: #### 5 8410-2 ####[facility] LABORATORYCLIA [id number] [place] [address] [place] RBC (Bld) [#/Vol] 2.88 10*6/uL Low 3.90-5.20 [facility] Comment on above: Order Comment: Speci men Type: BLOOD SPECIMENOrdering Facility: [facility] Address: [address] [place] [address] Performed By: #### 5 8410-2 ####[facility] LABORATORYCLIA [id number] [address] OF [facility] WBC (Bld) [#/Vol] 6.37 10*3/uL Normal 3.70-11.00 [facility] Comment on above: Order Comment: Speci men Type: BLOOD SPECIMENOrdering Facility: [facility] Address: [address] [place] [address] Performed By: #### 5 8410-2 ####[facility] LABORATORYCLIA [id number] [address] NT-proBNP SerPl-mCncon 06-24 Natriuretic peptide.B prohormone N-Terminal [Mass/Vol] 2971 pg/mL High <450 [facility] Comment on above: Order Comment: Speci men Type: BLOOD SPECIMENOrdering Facility: [facility] Address: [address] [place] [address] Performed By: #### 2 4321-2, 73652-1 ####[facility] LABORATORYCLIA [id number] [address] aPTT PPPon 06-24-2022 aPTT Coag (PPP) [Time] 64.2 s High 23.0-32.4 [facility] Comment on above: Order Comment: Speci men Type: BLOOD SPECIMEN Ordering Facility: [facility] Address: [address] [place] [address] Performed By: #### T SCR #### [facility] CLIA [id number] [address] aPTT Coag (PPP) [Time] 45.8 s High 23.0-32.4 [facility] Comment on above: Order Comment: Speci men Type: BLOOD SPECIMENOrdering Facility: [facility] Address: [address] [place] [address] Performed By: #### 3 2355-0 #### [facility] CLIA [id number] [address] aPTT Coag (PPP) [Time] 116.8 s High 28.5-34.0 [facility] Comment on above: Order Comment: Specrobson mason Type: BLOOD SPECIMENOrdering Facility: [facility] Address: [address] [address] Performed By: #### 1 4979-9 ####[facility] LABORATORYCLIA [id number] [address] [place] ALLIED HEALTHon 06-23-2022 ALLIED HEALTH HNO ID: [id number] Author: Mikel Coronado RT(R) Service: Radiology Author [...] Comment: Rhina mason Type: BLOOD SPECIMENOrdering Facility: [facility] Address: [address] [address] Performed By: #### 5 8410-2 ####[facility] LABORATORYCLIA [id number] [address] OF [facility] Hematocrit (Bld) [Volume fraction] 29.6 % Low 36.0-46.0 [facility] Comment on above: Order Comment: Speci men Type: BLOOD SPECIMENOrdering Facility: [facility] Address: [address] [place] [address] Performed By: #### 5 8410-2 ####[facility] LABORATORYCLIA [id number] [address] STATES OF [facility] Hemoglobin (Bld) [Mass/Vol] 9.5 g/dL Low 11.5-15.5 [facility] Comment on above: Order Comment: Speci men Type: BLOOD SPECIMENOrdering Facility: [facility] Address: [address] [place] [address] Performed By: #### 5 8410-2 ####[facility] LABORATORYCLIA [id number] [address] STATES OF [facility] MCH (RBC) [Entitic mass] 30.4 pg Normal 26.0-34.0 [facility] Comment on above: Order Comment: Speci men Type: BLOOD SPECIMENOrdering Facility: [facility] Address: [address] [place] [address] Performed By: #### 5 8410-2 ####[facility] LABORATORYCLIA [id number] [address] MCHC (RBC) [Mass/Vol] 32.1 g/dL Normal 30.5-36.0 [facility] Comment on above: Order Comment: Speci men Type: BLOOD SPECIMENOrdering Facility: [facility] Address: [address] [place] [address] Performed By: #### 5 8410-2 ####[facility] LABORATORYCLIA [id number] [address] [place] MCV (RBC) [Entitic vol] 94.6 fL Normal 80.0-100.0 [facility] Comment on above: Order Comment: Speci men Type: BLOOD SPECIMENOrdering Facility: [facility] Address: [address] [place] [address] Performed By: #### 5 8410-2 ####[facility] LABORATORYCLIA [id number] [place] [address] [place] Nucleated RBC (Bld) [#/Vol] 0.07 10*3/uL High <0.01 [facility] Comment on above: Order Comment: Speci men Type: BLOOD SPECIMENOrdering Facility: [facility] Address: [address] [place] [address] Performed By: #### 5 8410-2 ####[facility] LABORATORYCLIA [id number] [place] [address] [place] Platelet mean volume (Bld) [Entitic vol] 9.9 fL Normal 9.0-12.7 [facility] [facility] Comment on above: Order Comment: Speci men Type: BLOOD SPECIMENOrdering Facility: [facility] Address: [address] [place] [address] Performed By: #### 5 8410-2 ####[facility] LABORATORYCLIA [id number] [address] [place] Platelets (Bld) [#/Vol] 241 10*3/uL Normal 150-400 [facility] Comment on above: Order Comment: Speci men Type: BLOOD SPECIMENOrdering Facility: [facility] Address: [address] [place] [address] Performed By: #### 5 8410-2 ####[facility] LABORATORYCLIA [id number] [place] [address] [place] RBC (Bld) [#/Vol] 3.13 10*6/uL Low 3.90-5.20 [facility] Comment on above: Order Comment: Speci men Type: BLOOD SPECIMENOrdering Facility: [facility] Address: [address] [place] [address] Performed By: #### 5 8410-2 ####[facility] LABORATORYCLIA [id number] [address] [place] WBC (Bld) [#/Vol] 6.86 10*3/uL Normal 3.70-11.00 [facility] Comment on above: Order Comment: Speci men Type: BLOOD SPECIMENOrdering Facility: [facility] Address: [place] [address] Performed By: #### 5 8410-2 ####[facility] LABORATORYCLIA [id number] [place] [address] [place] [facility] NUTRITIONon 06-23-2022 NUTRITION HNO ID: [id number] Author: Parul Mcallister RD Service: Nutrition Therapy Author Type: Registered Dietitian Type: Nutrition Filed: 06/23/2022 2:28 PM Note Text: NUTRITION THERAPY INITIAL ASSESSMENT SERVICE DATE: 06/23/2022 SERVICE TIME: 11:09 AM Nutrition Assessment: Recommended Malnutrition Diagnosis: No Malnutrition Identified Nutrition Diagnosis: Problem: Suboptimal protein/energy intake Related to: Inability to consume sufficient nutrients As evidenced by: Patient/family self-report;Intake records Estimated kilocalorie needs: 1641-9361 Calorie Calculation Method: 25-30 kcals/kg Estimated protein [...] sites of pneumonia. Small bilateral pleural effusions. Grants Analyst: PSCB Transcribe Date/Time: Jun 24 2022 6:34A Dictated by : DI MINER MD This examination was interpreted and the report reviewed and electronically signed by: DI MINER MD on Jun 24 2022 6:36AM EST [id number] Normal [facility] aPTT PPPon 06-23-2022 aPTT Coag (PPP) [Time] 46.7 s High 23.0-32.4 [facility] Comment on above: Order Comment: Speci men Type: BLOOD SPECIMENOrdering Facility: [facility] Address: [address] [place] [address] Performed By: #### 1 4979-9 ####[facility] LABORATORYCLIA [id number] [address] aPTT Coag (PPP) [Time] 53.8 s High 23.0-32.4 [facility] Comment on above: Order Comment: Speci men Type: BLOOD SPECIMENOrdering Facility: [facility] Address: [address] [place] [address] Performed By: #### 1 4979-9 ####[facility] LABORATORYCLIA [id number] [address] aPTT Coag (PPP) [Time] 114.5 s High 23.0-32.4 [facility] Comment on above: Order Comment: Speci men Type: BLOOD SPECIMEN Ordering Facility: [facility] Address: [address] [place] [address] Performed By: #### T SCR #### [facility] CLIA [id number] [address] CBC W Auto Differential pane l (Bld)on 06-22-2022 Basophils (Bld) [#/Vol] 0.03 10*3/uL Normal <0.11 [facility] Comment on above: Order Comment: Speci men Type: BLOOD SPECIMENOrdering Facility: [facility] Address: [address] [place] [address] Result Comment: Diff erential confirmed by visual scan of peripheral blood smear slide Performed By: #### 5 7021-8 ####[facility] LABORATORYCLIA [id number] [address] Basophils/100 WBC (Bld) 0.5 % Normal [facility] Comment on above: Order Comment: Speci men Type: BLOOD SPECIMENOrdering Facility: [facility] Address: [address] [place] [address] Performed By: #### 5 7021-8 ####[facility] LABORATORYCLIA [id number] [address] Differential cell count method Nom (Bld) Auto Normal [facility] Comment on above: Order Comment: Speci men Type: BLOOD SPECIMENOrdering Facility: [facility] Address: [address] [place] [address] Performed By: #### 5 7021-8 ####[facility] LABORATORYCLIA [id number] [address] Eosinophils (Bld) [#/Vol] 10*3/uL Normal <0.46 [facility] Comment on above: Order Comment: Speci men Type: BLOOD SPECIMENOrdering Facility: [facility] Address: [address] [place] [address] Performed By: #### 5 7021-8 ####[facility] LABORATORYCLIA [id number] [address] Eosinophils/100 WBC (Bld) 0.0 % Normal [facility] Comment on above: Order Comment: Speci men Type: BLOOD SPECIMENOrdering Facility: [facility] Address: [address] [place] [address] Performed By: #### 5 7021-8 ####[facility] LABORATORYCLIA [id number] [address] Erythrocyte distribution width (RBC) [Ratio] 16.2 % High 11.5-15.0 [facility] Comment on above: Order Comment: Speci men Type: BLOOD SPECIMENOrdering Facility: [facility] Address: [address] [place] [address] Performed By: #### 5 7021-8 ####[facility] LABORATORYCLIA [id number] [address] [place] Hematocrit (Bld) [Volume fraction] 25.1 % Low 36.0-46.0 [facility] Comment on above: Order Comment: Speci men Type: BLOOD SPECIMENOrdering Facility: [facility] Address: [address] [place] [address] Performed By: #### 5 7021-8 ####[facility] LABORATORYCLIA [id number] [address] [place] Hemoglobin (Bld) [Mass/Vol] 8.4 g/dL Low 11.5-15.5 [facility] Comment on above: Order Comment: Speci men Type: BLOOD SPECIMENOrdering Facility: [facility] Address: [address] [place] [address] Performed By: #### 5 7021-8 ####[facility] LABORATORYCLIA [id number] [address] [place] Immature granulocytes (Bld) [#/Vol] 0.60 10*3/uL High <0.10 [facility] Comment on above: Order Comment: Speci men Type: BLOOD SPECIMENOrdering Facility: [facility] Address: [address] [place] [address] Performed By: #### 5 7021-8 ####[facility] LABORATORYCLIA [id number] [address] [place] Immature granulocytes/100 WBC (Bld) 10.3 % Normal [facility] Comment on above: Order Comment: Speci men Type: BLOOD SPECIMENOrdering Facility: [facility] Address: [address] [place] [address] Performed By: #### 5 7021-8 ####[facility] LABORATORYCLIA [id number] [place] [address] [place] Lymphocytes (Bld) [#/Vol] 1.38 10*3/uL Normal 1.00-4.00 [facility] Comment on above: Order Comment: Speci men Type: BLOOD SPECIMENOrdering Facility: [facility] Address: [address] [place] [address] Performed By: #### 5 7021-8 ####[facility]ORATORYCLIA [id number] [address] Lymphocytes/100 WBC (Bld) 23.7 % Normal [facility] Comment on above: Order Comment: Speci men Type: BLOOD SPECIMENOrdering Facility: [facility] Address: [address] [place] [address] Performed By: #### 5 7021-8 ####[facility] LABORATORYCLIA [id number] [address] OF [facility] MCH (RBC) [Entitic mass] 31.2 pg Normal 26.0-34.0 [facility] Comment on above: Order Comment: Speci men Type: BLOOD SPECIMENOrdering Facility: [facility] Address: [address] [place] [address] Performed By: #### 5 7021-8 ####[facility] LABORATORYCLIA [id number] [address] [place] MCHC (RBC) [Mass/Vol] 33.5 g/dL Normal 30.5-36.0 [facility] Comment on above: Order Comment: Speci men Type: BLOOD SPECIMENOrdering Facility: [facility] Address: [address] [place] [address] Performed By: #### 5 7021-8 ####[facility] LABORATORYCLIA [id number] [address] [place] MCV (RBC) [Entitic vol] 93.3 fL Normal 80.0-100.0 [facility] Comment on above: Order Comment: Speci men Type: BLOOD SPECIMENOrdering Facility: [facility] Address: [address] [place] [address] Performed By: #### 5 7021-8 ####[facility] LABORATORYCLIA [id number] [address] Monocytes (Bld) [#/Vol] 0.50 10*3/uL Normal <0.87 [facility] Comment on above: Order Comment: Speci men Type: BLOOD SPECIMENOrdering Facility: [facility] Address: [address] [address] Performed By: #### 5 7021-8 ####[facility] LABORATORYCLIA [id number] [address] [place] Monocytes/100 WBC (Bld) 8.6 % Normal [facility] Comment on above: Order Comment: Speci men Type: BLOOD SPECIMENOrdering Facility: [facility] Address: [address] [place] [address] Performed By: #### 5 7021-8 ####[facility] LABORATORYCLIA [id number] [place] [address] [place] Neutrophils (Bld) [#/Vol] 3.31 10*3/uL Normal 1.45-7.50 [facility] Comment on above: Order Comment: Speci men Type: BLOOD SPECIMENOrdering Facility: [facility] Address: [address] [place] [address] Performed By: #### 5 7021-8 ####[facility] LABORATORYCLIA [id number] [address] [place] Neutrophils/100 WBC (Bld) 56.9 % Normal [facility] Comment on above: Order Comment: Speci men Type: BLOOD SPECIMENOrdering Facility: [facility] Address: [address] [place] [address] Performed By: #### 5 7021-8 ####[facility]ORATORYCLIA [id number] [place] [address] [place] Nucleated RBC (Bld) [#/Vol] 0.10 10*3/uL High <0.01 [facility] Comment on above: Order Comment: Speci men Type: BLOOD SPECIMENOrdering Facility: [facility] Address: [address] [place] [address] Performed By: #### 5 7021-8 ####[facility] LABORATORYCLIA [id number] [place] [address] [place] Nucleated RBC/100 WBC (Bld) [Ratio] 1.7 /100 WBC Normal [facility] Comment on above: Order Comment: Speci men Type: BLOOD SPECIMENOrdering Facility: [facility] Address: [address] [address] Performed By: #### 5 7021-8 ####[facility] LABORATORYCLIA [id number] [address] [place] Platelet mean volume (Bld) [Entitic vol] 9.7 fL Normal 9.0-12.7 [facility] Comment on above: Order Comment: Speci men Type: BLOOD SPECIMENOrdering Facility: [facility] Address: [address] [address] Performed By: #### 5 7021-8 ####[facility] LABORATORYCLIA [id number] [place] [address] [place] Platelets (Bld) [#/Vol] 209 10*3/uL Normal 150-400 [facility] Comment on above: Order Comment: Speci men Type: BLOOD SPECIMENOrdering Facility: [facility] Address: [address] [address] Performed By: #### 5 7021-8 ####[facility] LABORATORYCLIA [id number] [place] [address] [place] RBC (Bld) [#/Vol] 2.69 10*6/uL Low 3.90-5.20 [facility] Comment on above: Order Comment: Speci men Type: BLOOD SPECIMENOrdering Facility: [facility] Address: [address] Performed By: #### 5 7021-8 ####[facility] LABORATORYCLIA [id number] [place] [address] [place] WBC (Bld) [#/Vol] 5.82 10*3/uL Normal 3.70-11.00 [facility] Comment on above: Order Comment: Speci men Type: BLOOD SPECIMENOrdering Facility: [facility] Address: [address] [place] [address] Performed By: #### 5 7021-8 ####[facility] LABORATORYCLIA [id number] [place] [address] [place] CONSULT PROGon 06-22-2022 CONSULT PROG HNO ID: [id number] Author: Eliza Martin APRN.SWEEPER DRIVER Service: Gastroenterology Author Type: Nurse Specialist Type: [...] Comment: Specrobson men Type: BLOOD SPECIMENOrdering Facility: [facility] Address: [address] [address] Performed By: #### 2 4323-8 ####[facility] LABORATORYCLIA [id number] [place] [address] [place] ALP [Catalytic activity/Vol] 129 U/L High 34-123 [facility] Comment on above: Order Comment: Rhina men Type: BLOOD SPECIMENOrdering Facility: [facility] Address: [address] [address] Performed By: #### 2 4323-8 ####[facility] LABORATORYCLIA [id number] [place], [place] [address] [place] [address] OF [facility] ALT With P-5'-P [Catalytic activity/Vol] 21 U/L Normal 7-38 [facility] Comment on above: Order Comment: Speci men Type: BLOOD SPECIMENOrdering Facility: [facility] Address: [address] [place] [address] Performed By: #### 2 4323-8 ####[facility] LABORATORYCLIA [id number] [address] OF [facility] Anion gap [Moles/Vol] 10 mmol/L Normal 9-18 [facility] Comment on above: Order Comment: Speci men Type: BLOOD SPECIMENOrdering Facility: [facility] Address: [address] [place] [address] Performed By: #### 2 4323-8 ####[facility] LABORATORYCLIA [id number] [address] AST With P-5'-P [Catalytic activity/Vol] 19 U/L Normal 13-35 [facility] Comment on above: Order Comment: Speci men Type: BLOOD SPECIMENOrdering Facility: [facility] Address: [address] [place] [address] Performed By: #### 2 4323-8 ####[facility] LABORATORYCLIA [id number] [address] OF [facility] Bilirubin [Mass/Vol] 0.6 mg/dL Normal 0.2-1.3 [facility] Comment on above: Order Comment: Speci men Type: BLOOD SPECIMENOrdering Facility: [facility] Address: [address] [place] [address] Performed By: #### 2 4323-8 ####[facility] LABORATORYCLIA [id number] [address] [place] Calcium [Mass/Vol] 8.6 mg/dL Normal 8.5-10.2 [facility] Comment on above: Order Comment: Speci men Type: BLOOD SPECIMENOrdering Facility: [facility] Address: [address] [place] [address] Performed By: #### 2 4323-8 ####[facility] LABORATORYCLIA [id number] [address] [place] Chloride [Moles/Vol] 105 mmol/L Normal 97-105 [facility] Comment on above: Order Comment: Speci men Type: BLOOD SPECIMENOrdering Facility: [facility] Address: [address] [place] [address] Performed By: #### 2 4323-8 ####[facility] LABORATORYCLIA [id number] [address] [place] CO2 [Moles/Vol] 21 mmol/L Low 22-30 [facility] Comment on above: Order Comment: Speci men Type: BLOOD SPECIMENOrdering Facility: [facility] Address: [address] [place] [address] Performed By: #### 2 4323-8 ####[facility] LABORATORYCLIA [id number] [address] OF [facility] Creatinine [Mass/Vol] 0.88 mg/dL Normal 0.58-0.96 [facility] Comment on above: Order Comment: Speci men Type: BLOOD SPECIMENOrdering Facility: [facility] Address: [address] [place] [address] Performed By: #### 2 4323-8 ####[facility] LABORATORYCLIA [id number] [address] ESTIMATED GLOMERULAR FILTRATION RATE 66 mL/min/1.73m??? Normal >=60 [facility] Comment on above: Order Comment: Speci men Type: BLOOD SPECIMENOrdering Facility: [facility] Address: [address] [place] [address] Result Comment: Isa mated Glomerular Filtration Rate [...] Performed By: #### 2 4323-8 ####[facility] [id number] [place] [address] [place] Glucose [Mass/Vol] 95 mg/dL Normal 74-99 [facility] Comment on above: Order Comment: Rhina mason Type: BLOOD SPECIMENOrdering Facility: [facility] Address: [address] [place] [address] Result Comment: The [place] [employer] (ADA) [...] Performed By: #### 2 4323-8 ####[facility] [id number] [place] [address] [place] Potassium [Moles/Vol] 4.7 mmol/L Normal 3.7-5.1 [facility] Comment on above: Order Comment: Rhina mason Type: BLOOD SPECIMENOrdering Facility: [facility] Address: [address] [address] Performed By: #### 2 4323-8 ####[facility] LABORATORYCLIA [id number] [place] [address] [place] Protein [Mass/Vol] 5.3 g/dL Low 6.3-8.0 [facility] Comment on above: Order Comment: Rhina mason Type: BLOOD SPECIMENOrdering Facility: [facility] Address: [address] [place] [address] Performed By: #### 2 4323-8 ####[facility] LABORATORYCLIA [id number] [address] STATES [facility] Sodium [Moles/Vol] 136 mmol/L Normal 136-144 [facility] Comment on above: Order Comment: Rhina mason Type: BLOOD SPECIMENOrdering Facility: [facility] Address: [address] [place] [address] Performed By: #### 2 4323-8 ####[facility] LABORATORYCLIA [id number] [address] [place] Urea nitrogen [Mass/Vol] 7 mg/dL Normal 7-21 [facility] Comment on above: Order Comment: Rhina mason Type: BLOOD SPECIMENOrdering Facility: [facility] Address: [address] [place] [address] Performed By: #### 2 4323-8 ####[facility] LABORATORYCLIA [id number] [address] [place] H. pylori IgG IA Qlon 2021 H. PYLORI IGG, QUAL Negative Normal Negative [facility] Comment on above: Order Comment: Rhina mason Type: BLOOD SPECIMENOrdering Facility: [facility] Address: [address] [place] [address] Result Comment: Shakeel ot exclude H. pylori infection if the specimen collected 3-4 weeks after onset of symptoms. Performed By: #### 1 7859-0 ####[facility] LABCLIA [id number] [facility] [id number] [place] PT panel Coag (PPP)on 2021 INR Coag (PPP) [Relative time] {INR} Low 0.9-1.3 [facility] Comment on above: Order Comment: Rhina mason Type: BLOOD SPECIMEN Ordering Facility: [facility] Address: [address] [place] [address] Result Comment: Mayra min K Antagonist (VKA) [...] [phone] Performed By: #### T SCR #### [facility] CLIA [id number] [address] OF [facility] PT Coag (PPP) [Time] 9.9 s Normal 9.7-13.0 [facility] Comment on above: Order Comment: Speci men Type: BLOOD SPECIMEN Ordering Facility: [facility] Address: [address] [place], [place] [address] Performed By: #### T SCR #### [facility] CLIA [id number] [address] [place] THERAPY NTon 06-22-2022 THERAPY NT HNO ID: [id number] Author: MAMIE Mortensen/Weston Service: Occupational Therapy Author Type: Occupational Therapist Type: Therapy (PT/OT/Speech/Resp) Filed: 06/22/2022 11:27 AM Note Text: Occupational Therapy Evaluation SERVICE DATE: 06/22/2022 SERVICE TIME: 1037 to 1105 ROOM: [place] [address] Recommended Discharge Disposition: Subacute/SNF Recommended Discharge Disposition [...] time Occupational Factors Life Roles: Retired;Parent;Family Member;Friend;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 Dopplers study was done. SKIVER MACHINE OPERATOR - Biphasic BINDING NICKER - Multiphasic - possible stenosis DP - Monophasic Clothier - Biphasic. Technologist: Azar Holcomb [facility] Ordering physician: DWAYNE ZAIDI Interpreting physician: Supriya Ponce MD Final (Updated) RP Grants Analyst: IRENE Transcribe Date/Time: Jun 22 2022 7:12A Dictated by : SUPRIYA PONCE MD This examination was interpreted and the report reviewed and electronically signed by: SUPRIYA PONCE MD on Jun 24 2022 1:27PM EST [id number] Normal [facility] aPTT PPPon 06-22-2022 aPTT Coag (PPP) [Time] 43.0 s High 23.0-32.4 [facility] Comment on above: Order Comment: Speci men Type: BLOOD SPECIMENOrdering Facility: [facility] Address: [address] [place] [address] Performed By: #### 1 4979-9 ####[facility] LABORATORYCLIA [id number] [place] [address] [place] aPTT Coag (PPP) [Time] 25.6 s Normal 23.0-32.4 [facility] Comment on above: Order Comment: Speci men Type: BLOOD SPECIMEN Ordering Facility: [facility] Address: [place] [address] Performed By: #### T SCR #### [facility] CLIA [id number] [address] ANES POSTPROC EVALon 022 ANES POSTPROC EVAL HNO ID: [id number] Author: Olu Vasquez MD Service: Anesthesiology Author Type: Physician Type: Anesthesia Postprocedure Evaluation Filed: 06/21/2022 3:20 PM Note Text: POST ANESTHESIA EVALUATION NOTE : 1940 Procedure Summary Date: 06/21/22 Room / Location: [facility] Anesthesia Start: 1134 Anesthesia Stop: 1158 [...] June 21, 2022 TIME: 3:19 PM CSN: [id number] Normal [facility] ANES PRE-OPon 06-21-2022 ANES PRE-OP HNO ID: [id number] Author: Olu Vasquez MD Service: Anesthesiology Author Type: Physician Type: Anesthesia Preprocedure Evaluation Filed: 06/21/2022 11:32 AM Note Text: ANESTHESIOLOGY DAY OF SURGERY NOTE : 1940 Procedure Information Date/Time: 06/21/22 1130 Scheduled providers: Sim Elizabeth MD Procedure: EGD DIAGNOSTIC Location: [place] [facility] Estimated body mass index is 26.94 [...] CONSULT PROGon 06-21-2022 CONSULT PROG HNO ID: [id number] Author: Fidel Carmen APRN.STORES CLERK Service: Wound/Ostomy Author Type: Nurse Practitioner Type: Consult Progress Note Filed: 06/21/2022 1:41 PM Note Text: WOUND CARE SERVICE CONSULT LINER REROLL TENDER NOTE SERVICE DATE: 06/21/2022 SERVICE TIME: 941 TIME SPENT (minutes): 30 REASON FOR CONSULT: MAD buttocks, atypical wound Right middle finger. CHIEF COMPLAINT: Right middle finger Subjective HISTORY OF PRESENT ILLNESS: Ms. Jose Alberto Castillo is a 81 year old female who is seen today with Delia Bruno, Wound/pool manager, and presented to hospital with complaints of [...] 06/21/2022 9:57 AM Wound Image Site Assessment [place];Red (small open area noted) Allie-Wound Assessment [place];Intact Drainage Amount None Odor None Treatments Cleansed;Protective Barrier Ointment Dressing Foam- Adhesive Dressing Changed Changed Dressing Status Clean;Dry;Intact Active Orders Date Order Priority Status Authorizing Provider 06/21/22 1248 DRESSING CARE (SPECIFY) ([place]) Routine Active Fidel Carmen APRN.STORES CLERK - Specify:: Apply allevyn foam to coccyx, peel down every shift to assess skin and to apply zinc oxide, change every 3 days or if soiled. 06/21/22 1248 zinc oxide 20 % Active Fidel Carmen APRN.STORES CLERK Wound 06/21/22 0948 Atypical Wound Finger (Comment which one) Right (Active) Assessments 06/21/2022 9:48 AM Wound Image Site Assessment [place];White (shiney) Allie-Wound Assessment Intact Shape irregular Drainage Description Sanguineous (intermittent, per pt.) Drainage Amount None Odor None Treatments Cleansed Dressing Xeroform;Gauze (more content not included)... Normal [facility] Hgb Bld-mCncon 06-21-2022 Hemoglobin (Bld) [Mass/Vol] 6.9 g/dL Low 11.5-15.5 [facility] Comment on above: Order Comment: Speci men Type: BLOOD SPECIMENOrdering Facility: [facility] Address: [address] [place] [phone] Performed By: #### 3 2355-0 #### [facility] CLIA [id number] [place] [id number] [facility] OPERATIVE NOon 06-21-2022 OPERATIVE NO HNO ID: [id number] Author: Sim Elizabeth MD Service: Gastroenterology Author Type: Physician Type: Operative Report Filed: 06/21/2022 12:01 PM Note Text: OPERATIVE/PROCEDURE REPORT LOG ID: [id number] Surgery/Procedure Date: 06/21/2022 Incision/Procedure Start Time: 11:44 AM Incision Close/Procedure End Time: 11:49 AM Surgeon(s)/Proceduralis t(s) and Central Service Tech(s): Surgeon(s) and Role: * Sim Elizabeth MD [...] 21, 2022 TIME: 11:53 AM PAGER/CONTACT #: [phone] Normal [facility] THERAPY NTon 06-21-2022 THERAPY NT HNO ID: [id number] Author: Miranda Burroughs PT Service: Physical Therapy Author Type: Physical Therapist Type: Therapy (PT/OT/Speech/Resp) Filed: 06/21/2022 10:12 AM Note Text: Physical Therapy Evaluation SERVICE DATE: 06/21/2022 SERVICE TIME: 0832 to 0855 ROOM: [place] [address] Recommended Discharge Disposition: Subacute/SNF Recommended Discharge Disposition [...] gait and mobility-other Interventions Provided: Evaluation;Therapeutic Activity (30356) $ Evaluation-Moderate (16965) Billed Units: 1 unit Therapeutic Activity (53882) Treatment Minutes: 8 $ Therapeutic Activity (31044) Billed Units: 1 unit Educated pt on [...] Hospital TYPE + SCREENon 06-21-2022 ABO AB [facility] Comment on above: Order Comment: Speci men Type: BLOOD SPECIMEN Ordering Facility: [facility] Address: [address] [place] [address] Performed By: #### T SCR #### [facility] CLIA [id number] [address] [place] [address] HISTORICAL AB SCR STATUS Negative [facility] Comment on above: Order Comment: Speci men Type: BLOOD SPECIMEN Ordering Facility: [facility] Address: [address] [place] [address] Performed By: #### T SCR #### [facility] CLIA [id number] [address] [place] [address] Rh Nom (Bld) Positive [facility] Comment on above: Order Comment: Speci men Type: BLOOD SPECIMEN Ordering Facility: [facility] Address: [address] [place] [address] Performed By: #### T SCR #### [facility] CLIA [id number] [address] [place] [address] TYPE AND SCREEN EXPIRATION 06/24/2022 23:59 [facility] Comment on above: Order Comment: Speci men Type: BLOOD SPECIMEN Ordering Facility: [facility] Address: [address] [place] [address] Performed By: #### T SCR #### [facility] CLIA [id number] [address] ALLIED HEALTHon 06-20-2022 ALLIED HEALTH HNO ID: [id number] Author: RT Tamica(R) Service: Radiology Author Type: [...] Comment: Speci men Type: BLOOD SPECIMENOrdering Facility: [facility] Address: [address] [place] [address] Performed By: #### 2 4321-2 ####[facility] LABORATORYCLIA [id number] [place] [address] [place] Calcium [Mass/Vol] 8.5 mg/dL Normal 8.5-10.2 [facility] Comment on above: Order Comment: Speci men Type: BLOOD SPECIMENOrdering Facility: [facility] Address: [address] [place] [address] Performed By: #### 2 4321-2 ####[facility] LABORATORYCLIA [id number] [place] [address] [place] Chloride [Moles/Vol] 106 mmol/L High 97-105 [facility] Comment on above: Order Comment: Speci men Type: BLOOD SPECIMENOrdering Facility: [facility] Address: [address] [place] [address] Performed By: #### 2 4321-2 ####[facility] LABORATORYCLIA [id number] [place] [address] [place] CO2 [Moles/Vol] 22 mmol/L Normal 22-30 [facility] Comment on above: Order Comment: Speci men Type: BLOOD SPECIMENOrdering Facility: [facility] Address: [address] [place] [address] Performed By: #### 2 4321-2 ####[facility] LABORATORYCLIA [id number] [place] [address] [place] Creatinine [Mass/Vol] 0.84 mg/dL Normal 0.58-0.96 [facility] Comment on above: Order Comment: Speci men Type: BLOOD SPECIMENOrdering Facility: [facility] Address: [place] [address] Performed By: #### 2 4321-2 ####[facility] [id number] [place] [id number] [facility] [place] ESTIMATED GLOMERULAR FILTRATION RATE 69 mL/min/1.73m??? Normal >=60 [facility] Comment on above: Order Comment: Rhina mason Type: BLOOD SPECIMENOrdering Facility: [facility] Address: [address] [place] [address] Result Comment: Isa mated Glomerular Filtration Rate [...] actual GFR. Performed By: #### 2 4321-2 ####[facility]PITALIA [id number] [place] [address] [place] Glucose [Mass/Vol] 92 mg/dL Normal 74-99 [facility] Comment on above: Order Comment: Rhina mason Type: BLOOD SPECIMENOrdering Facility: [facility] Address: [address] [place] [address] Result Comment: The [place] [employer] (ADA) [...] 2016.39(Suppl 1). Performed By: #### 2 4321-2 ####[facility] LABORATORYCLIA [id number] [address] [place] Potassium [Moles/Vol] 4.7 mmol/L Normal 3.7-5.1 [facility] Comment on above: Order Comment: Speci men Type: BLOOD SPECIMENOrdering Facility: [facility] Address: [address] [place] [address] Performed By: #### 2 4321-2 ####[facility] LABORATORYCLIA [id number] [address] [place] Sodium [Moles/Vol] 136 mmol/L Normal 136-144 [facility] Comment on above: Order Comment: Speci men Type: BLOOD SPECIMENOrdering Facility: [facility] Address: [address] [place] [address] Performed By: #### 2 4321-2 ####[facility] LABORATORYCLIA [id number] [address] STATES OF [facility] Urea nitrogen [Mass/Vol] 16 mg/dL Normal 7-21 [facility] Comment on above: Order Comment: Speci men Type: BLOOD SPECIMENOrdering Facility: [facility] Address: [address] [place] [address] Performed By: #### 2 4321-2 ####[facility] LABORATORYCLIA [id number] [address] [place] CBC panel Auto (Bld)on 06-20 Erythrocyte distribution width (RBC) [Ratio] 15.9 % High 11.5-15.0 [facility] Comment on above: Order Comment: Speci men Type: BLOOD SPECIMENOrdering Facility: [facility] Address: [address] [place] [address] Performed By: #### 3 2355-0 #### [facility] CLIA [id number] [address] STATES OF [facility] Hematocrit (Bld) [Volume fraction] 23.9 % Low 36.0-46.0 [facility] Comment on above: Order Comment: Speci men Type: BLOOD SPECIMENOrdering Facility: [facility] Address: [address] [place] [address] Performed By: #### 3 2355-0 #### [facility] CLIA [id number] [address] Hemoglobin (Bld) [Mass/Vol] 7.8 g/dL Low 11.5-15.5 [facility] Comment on above: Order Comment: Speci men Type: BLOOD SPECIMENOrdering Facility: [facility] Address: [address] [place] [address] Performed By: #### 3 5-0 #### [facility] CLIA [id number] [address] MCH (RBC) [Entitic mass] 30.7 pg Normal 26.0-34.0 [facility] Comment on above: Order Comment: Speci men Type: BLOOD SPECIMENOrdering Facility: [facility] Address: [address] [place] [address] Performed By: #### 3 2354-0 #### [facility] CLIA [id number] [address] MCHC (RBC) [Mass/Vol] 32.6 g/dL Normal 30.5-36.0 [facility] Comment on above: Order Comment: Speci men Type: BLOOD SPECIMENOrdering Facility: [facility] Address: [address] [place] [address] Performed By: #### 3 5-0 #### [facility] CLIA [id number] [address] MCV (RBC) [Entitic vol] 94.1 fL Normal 80.0-100.0 [facility] Comment on above: Order Comment: Speci men Type: BLOOD SPECIMENOrdering Facility: [facility] Address: [address] [place] [address] Performed By: #### 3 2355-0 #### [facility] CLIA [id number] [address] Nucleated RBC (Bld) [#/Vol] 0.09 10*3/uL High <0.01 [facility] Comment on above: Order Comment: Speci men Type: BLOOD SPECIMENOrdering Facility: [facility] Address: [address] [place] [address] Performed By: #### 3 2355-0 #### [facility] CLIA [id number] [address] [place] Platelet mean volume (Bld) [Entitic vol] 9.8 fL Normal 9.0-12.7 [facility] Comment on above: Order Comment: Speci men Type: BLOOD SPECIMENOrdering Facility: [facility] Address: [address] [place] [address] Performed By: #### 3 2355-0 #### [facility] CLIA [id number] [address] [place] Platelets (Bld) [#/Vol] 233 10*3/uL Normal 150-400 [facility] Comment on above: Order Comment: Speci men Type: BLOOD SPECIMENOrdering Facility: [facility] Address: [address] [place] [address] Performed By: #### 3 2355-0 #### [facility] CLIA [id number] [address] [place] RBC (Bld) [#/Vol] 2.54 10*6/uL Low 3.90-5.20 [facility] Comment on above: Order Comment: Speci men Type: BLOOD SPECIMENOrdering Facility: [facility] Address: [address] [place] [address] Performed By: #### 3 5-0 #### [facility] CLIA [id number] [address] [place] WBC (Bld) [#/Vol] 9.90 10*3/uL Normal 3.70-11.00 [facility] Comment on above: Order Comment: Speci men Type: BLOOD SPECIMENOrdering Facility: [facility] Address: [address] [place] [address] Performed By: #### 3 2355-0 #### [facility] CLIA [id number] [address] STATES OF [facility] CONSULTon 06-20-2022 CONSULT HNO ID: [id number] Author: Christine Edouard MD Service: ? Author [...] DATE OF EXAM: Jun 20 2022 2:57PM [facility] 0530 - CT ABD/PEL W IVCON [...] bilateral pleural effusions, larger on the right. Timber Packer (topogram) images: No additional findings. IMPRESSION: Acute sigmoid diverticulitis. No evidence of perforation or diverticular abscess. Consolidation and volume loss with bronchial wall thickening in both lower lobes and right middle lobe. Small bilateral pleural effusions, larger on the right. Diffuse subcutaneous edema of the left flank extending into the thigh. Bilateral renal cortical scarring and small cysts. Atherosclerotic arterial and aortic calcifications. Grants Analyst: PSCYoan Transcribe Date/Time: Jun 20 2022 3:18P [...] Speci men Type: BLOOD SPECIMEN Ordering Facility: [facility] Address: [address] [place] [phone] Performed By: #### T SCR #### [facility] CLIA [id number] 1 [place] [address] [place] ALLIED HEALTHon 06-19-2022 ALLIED HEALTH HNO ID: [id number] Author: Parul Ryan RN Service: Infection Prevention Author Type: ? Type: Allied Health Filed: 06/19/2022 5:49 PM Note Text: INFECTION PREVENTION NOTE Admission Date: 06/16/2022 Patient meets ?COVID Resolved? criteria and isolation has been discontinued as per [facility] guidance. SIGNATURE: Parul Ryan RN PATIENT NAME: Mel Castillo DATE: June 19, 2022 TIME: 5:49 PM PAGER/CONTACT #: Infection Prevention, [phone] Infection Prevention after hours/weekend pager: [phone] Normal [facility] Basic metabolic 2000 panelon 06-19-2022 Anion gap [Moles/Vol] 5 mmol/L Low 9-18 [facility] Comment on above: Order Comment: Speci men Type: BLOOD SPECIMENOrdering Facility: [facility] Address: [address] [place] [address] Performed By: #### 3 2355-0 #### [facility] CLIA [id number] [address] [place] Calcium [Mass/Vol] 8.1 mg/dL Low 8.5-10.2 [facility] Comment on above: Order Comment: Speci men Type: BLOOD SPECIMENOrdering Facility: [facility] Address: [address] [place] [address] Performed By: #### 3 2355-0 #### [facility] CLIA [id number] 1 [place] [address] [place] Chloride [Moles/Vol] 105 mmol/L Normal 97-105 [facility] Comment on above: Order Comment: Speci men Type: BLOOD SPECIMENOrdering Facility: [facility] Address: [address] [place] [address] Performed By: #### 3 2355-0 #### [facility] CLIA [id number] 1 [place] [address] [place] CO2 [Moles/Vol] 23 mmol/L Normal 22-30 [facility] Comment on above: Order Comment: Speci men Type: BLOOD SPECIMENOrdering Facility: [facility] Address: [address] [place] [address] Performed By: #### 3 2355-0 #### [facility] CLIA [id number] [address] OF [facility] Creatinine [Mass/Vol] 0.94 mg/dL Normal 0.58-0.96 [facility] Comment on above: Order Comment: Speci men Type: BLOOD SPECIMENOrdering Facility: [facility] Address: [address] [place] [address] Performed By: #### 3 2355-0 #### [facility] CLIA [id number] [address] ESTIMATED GLOMERULAR FILTRATION RATE 61 mL/min/1.73m??? Normal >=60 [facility] Comment on above: Order Comment: Speci men Type: BLOOD SPECIMENOrdering Facility: [facility] Address: [address] [place] [address] Result Comment: Isa mated Glomerular Filtration Rate [...] GFR. Performed By: #### 3 2355-0 #### [facility] CLIA [id number] [address] OF [facility] Glucose [Mass/Vol] 115 mg/dL High 74-99 [facility] Comment on above: Order Comment: Speci men Type: BLOOD SPECIMENOrdering Facility: [facility] Address: [address] [place] [address] Result Comment: The [place] [employer] (ADA) [...] 1). Performed By: #### 3 2355-0 #### [facility] CLIA [id number] [address] [place] Potassium [Moles/Vol] 4.4 mmol/L Normal 3.7-5.1 [facility] Comment on above: Order Comment: Speci men Type: BLOOD SPECIMENOrdering Facility: [facility] Address: [address] [place] [address] Performed By: #### 3 2355-0 #### [facility] CLIA [id number] [address] STATES OF [facility] Sodium [Moles/Vol] 133 mmol/L Low 136-144 [facility] Comment on above: Order Comment: Samiri men Type: BLOOD SPECIMENOrdering Facility: [facility] Address: [address] [place] [address] Performed By: #### 3 2355-0 #### [facility] CLIA [id number] [address] [place] Urea nitrogen [Mass/Vol] 22 mg/dL High 7-21 [facility] Comment on above: Order Comment: Speci men Type: BLOOD SPECIMENOrdering Facility: [facility] Address: [address] [place] [address] Performed By: #### 3 2355-0 #### [facility] CLIA [id number] [address] [place] CBC panel Auto (Bld)on 06-19 Erythrocyte distribution width (RBC) [Ratio] 15.6 % High 11.5-15.0 [facility] Comment on above: Order Comment: Speci men Type: BLOOD SPECIMENOrdering Facility: [facility] Address: [address] [place] [address] Performed By: #### 5 8410-2 ####[facility] LABORATORYCLIA [id number] [address] OF [facility] Hematocrit (Bld) [Volume fraction] 24.0 % Low 36.0-46.0 [facility] Comment on above: Order Comment: Speci men Type: BLOOD SPECIMENOrdering Facility: [facility] Address: [address] [place] [address] Performed By: #### 5 8410-2 ####[facility] LABORATORYCLIA [id number] [address] OF [facility] Hemoglobin (Bld) [Mass/Vol] 7.6 g/dL Low 11.5-15.5 [facility] Comment on above: Order Comment: Speci men Type: BLOOD SPECIMENOrdering Facility: [facility] Address: [address] [place] [address] Performed By: #### 5 8410-2 ####[facility] LABORATORYCLIA [id number] [address] MCH (RBC) [Entitic mass] 29.9 pg Normal 26.0-34.0 [facility] Comment on above: Order Comment: Speci men Type: BLOOD SPECIMENOrdering Facility: [facility] Address: [address] [place] [address] Performed By: #### 5 8410-2 ####[facility] LABORATORYCLIA [id number] [address] [place] MCHC (RBC) [Mass/Vol] 31.7 g/dL Normal 30.5-36.0 [facility] Comment on above: Order Comment: Speci men Type: BLOOD SPECIMENOrdering Facility: [facility] Address: [address] [place] [address] Performed By: #### 5 8410-2 ####[facility] LABORATORYCLIA [id number] [address] [place] MCV (RBC) [Entitic vol] 94.5 fL Normal 80.0-100.0 [facility] Comment on above: Order Comment: Speci men Type: BLOOD SPECIMENOrdering Facility: [facility] Address: [address] [place] [address] Performed By: #### 5 8410-2 ####[facility] LABORATORYCLIA [id number] [address] [place] Nucleated RBC (Bld) [#/Vol] 0.04 10*3/uL High <0.01 [facility] Comment on above: Order Comment: Speci men Type: BLOOD SPECIMENOrdering Facility: [facility] Address: [address] [place] [address] Performed By: #### 5 8410-2 ####[facility] LABORATORYCLIA [id number] [address] Platelet mean volume (Bld) [Entitic vol] 10.0 fL Normal 9.0-12.7 [facility] Comment on above: Order Comment: Speci men Type: BLOOD SPECIMENOrdering Facility: [facility] Address: [address] [place] [address] Performed By: #### 5 8410-2 ####[facility] LABORATORYCLIA [id number] [address] [place] Platelets (Bld) [#/Vol] 219 10*3/uL Normal 150-400 [facility] Comment on above: Order Comment: Speci men Type: BLOOD SPECIMENOrdering Facility: [facility] Address: [address] [place] [address] Performed By: #### 5 8410-2 ####[facility] LABORATORYCLIA [id number] [address] [place] RBC (Bld) [#/Vol] 2.54 10*6/uL Low 3.90-5.20 [facility] Comment on above: Order Comment: Speci men Type: BLOOD SPECIMENOrdering Facility: [facility] Address: [address] [address] Performed By: #### 5 8410-2 ####[facility] LABORATORYCLIA [id number] [address] WBC (Bld) [#/Vol] 8.55 10*3/uL Normal 3.70-11.00 [facility] Comment on above: Order Comment: Speci men Type: BLOOD SPECIMENOrdering Facility: [facility] Address: [address] [place] [address] Performed By: #### 5 8410-2 ####[facility] LABORATORYCLIA [id number] [address] [place] Hemoccult Stl Ql IAon 2021 Lower GI hemoglobin IA Ql (Stl) Positive Abnormal Negative [facility] Comment on above: Order Comment: Speci men Type: BLOOD SPECIMEN Ordering Facility: [facility] Address: [address] [place] [address] Performed By: #### T SCR #### [facility] CLIA [id number] [address] [place] Hgb Bld-mCncon 06-19-2022 Hemoglobin (Bld) [Mass/Vol] 7.6 g/dL Low 11.5-15.5 [facility] Comment on above: Order Comment: Speci men Type: BLOOD SPECIMENOrdering Facility: [facility] Address: [address] [place] [address] Performed By: #### 7 18-7 ####[facility] LABORATORYCLIA [id number] [address] [place] Magnesium SerPl-mCncon 06-19 Magnesium [Mass/Vol] 1.9 mg/dL Normal 1.7-2.3 [facility] Comment on above: Order Comment: Speci men Type: BLOOD SPECIMENOrdering Facility: [facility] Address: [address] [place] [address] Performed By: #### 3 2355-0 #### [facility] CLIA [id number] [address] OF [facility] OPERATIVE NOon 06-19-2022 OPERATIVE NO HNO ID: [id number] Author: Frida Rodriguez MD Service: Vascular Surgery Author Type: Physician Type: Operative Report Filed: 06/19/2022 2:59 PM Note Text: [facility] - Operative Report MEL GUADARRAMA : 1940 AGE: 81. SEX: F PATIENT TYPE: I HOSP SVC: ICU LOCATION: [facility] ATTENDING PHYSICIAN: DWAYNE ZAIDI CSN NUMBER: [id number] DATE OF SURGERY/PROCEDURE: 06/16/2022 INCISION/PROCEDURE START TIME: 5:01 PM INCISION CLOSE/PROCEDURE END TIME: 6:58 PM PREOPERATIVE DIAGNOSIS: Left lower extremity deep vein thrombosis. POSTOPERATIVE DIAGNOSIS: Left lower extremity deep vein thrombosis. SURGEON: Frida Rodriguez MD ROCKET SCIENTIST: Resident, Emanuel Hull SURGERY/PROCEDURE: Venogram with intravascular [...] micropuncture needle and serially upsized to a 5-St Lucian sheath. A venogram was then performed, which [...] time, the sheath was upsized to an 8-[place] Lucian sheath. An intravascular ultrasound was performed. This [...] unit for further monitoring. Frida Rodriguez MD LM:[id number] /[id number] Normal [facility] Phosphate SerPl-mCncon 06-19 Phosphate [Mass/Vol] 2.4 mg/dL Low 2.7-4.8 [facility] Comment on above: Order Comment: Speci men Type: BLOOD SPECIMENOrdering Facility: [facility] Address: [address] [place] [address] Performed By: #### 3 2355-0 #### [facility] CLIA [id number] [address] [place] [address] aPTT PPPon 06-19-2022 aPTT Coag (PPP) [Time] 46.9 s High 23.0-32.4 [facility] Comment on above: Order Comment: Speci men Type: BLOOD SPECIMENOrdering Facility: [facility] Address: [address] [place] [address] Performed By: #### 1 4979-9 ####[facility] LABORATORYCLIA [id number] [address] aPTT Coag (PPP) [Time] 83.8 s High 23.0-32.4 [facility] Comment on above: Order Comment: Speci men Type: BLOOD SPECIMENOrdering Facility: [facility] Address: [address] [place] [address] Performed By: #### 3 2355-0 #### [facility] CLIA [id number] [address] [place] [address] STATES OF [facility] Basic metabolic 2000 panelon 06-18-2022 Anion gap [Moles/Vol] 10 mmol/L Normal 9-18 [facility] Comment on above: Order Comment: Speci men Type: BLOOD SPECIMENOrdering Facility: [facility] Address: [address] [place] [address] Performed By: #### 2 4321-2, 25086-2, , 2776-07 ####[facility] LABORATORYCLIA [id number] [place] [address] [place] Calcium [Mass/Vol] 8.0 mg/dL Low 8.5-10.2 [facility] Comment on above: Order Comment: Speci men Type: BLOOD SPECIMENOrdering Facility: [facility] Address: [address] [place] [address] Performed By: #### 2 4321-2, 06001-9, , 2776-07 ####[facility] LABORATORYCLIA [id number] [place] [address] [place] Chloride [Moles/Vol] 102 mmol/L Normal 97-105 [facility] Comment on above: Order Comment: Speci men Type: BLOOD SPECIMENOrdering Facility: [facility] Address: [address] [place] [address] Performed By: #### 2 4321-2, 82842-1, , 2776-07 ####[facility]ORATORYCLIA [id number] [place] [address] [place] CO2 [Moles/Vol] 21 mmol/L Low 22-30 [facility] Comment on above: Order Comment: Speci men Type: BLOOD SPECIMENOrdering Facility: [facility] Address: [address] [place] [address] Performed By: #### 2 4321-2, 62872-2, , 2776-07 ####[facility] LABORATORYCLIA [id number] [place] [address] [place] Creatinine [Mass/Vol] 1.17 mg/dL High 0.58-0.96 [facility] Comment on above: Order Comment: Speci men Type: BLOOD SPECIMENOrdering Facility: [facility] Address: [address] [place] [address] Performed By: #### 2 4321-2, 38938-3, , 2776-07 ####[facility]ITALIA [id number] [address] [place] ESTIMATED GLOMERULAR FILTRATION RATE 47 mL/min/1.73m??? Low >=60 [facility] Comment on above: Order Comment: Rhina mason Type: BLOOD SPECIMENOrdering Facility: [facility] Address: [address] [place] [address] Result Comment: Isa mated Glomerular Filtration Rate [...] actual GFR. Performed By: #### 2 4321-2, 02904-5, , 2776-07 ####[facility] LABORATORYIA [id number] [place] [address] [place] Glucose [Mass/Vol] 112 mg/dL High 74-99 [facility] Comment on above: Order Comment: Rhina mason Type: BLOOD SPECIMENOrdering Facility: [facility] Address: [address] [place] [address] Result Comment: The [place] Diabetes Association (ADA) [...] 2016.39(Suppl 1). Performed By: #### 2 4321-2, 40621-0, , 2776-07 ####[facility] LABORATORYCLIA [id number] [place] [address] [place] Potassium [Moles/Vol] 4.4 mmol/L Normal 3.7-5.1 [facility] Comment on above: Order Comment: Speci men Type: BLOOD SPECIMENOrdering Facility: [facility] Address: [address] [place] [address] Performed By: #### 2 4321-2, 31415-3, , 2776-07 ####[facility]ORATORYCLIA [id number] [place] [address] [place] Sodium [Moles/Vol] 133 mmol/L Low 136-144 [facility] Comment on above: Order Comment: Speci men Type: BLOOD SPECIMENOrdering Facility: [facility] Address: [address] [place] [address] Performed By: #### 2 4321-2, 39629-7, , 2776-07 ####[facility] [id number] [address] [place] Urea nitrogen [Mass/Vol] 25 mg/dL High 7-21 [facility] Comment on above: Order Comment: Speci men Type: BLOOD SPECIMENOrdering Facility: [facility] Address: [address] [place] [address] Performed By: #### 2 4321-2, 00982-5, , 2776-07 ####[facility]ORATORYCLIA [id number] [address] [place] CBC panel Auto (Bld)on 06-18 Erythrocyte distribution width (RBC) [Ratio] 15.6 % High 11.5-15.0 [facility] Comment on above: Order Comment: Speci men Type: BLOOD SPECIMENOrdering Facility: [facility] Address: [address] [place] [address] Performed By: #### 5 8410-2 ####[facility]ORATORYCLIA [id number] [address] Hematocrit (Bld) [Volume fraction] 26.8 % Low 36.0-46.0 [facility] Comment on above: Order Comment: Speci men Type: BLOOD SPECIMENOrdering Facility: [facility] Address: [address] [place] [address] Performed By: #### 5 8410-2 ####[facility]ORATORYCLIA [id number] [address] OF [facility] Hemoglobin (Bld) [Mass/Vol] 8.5 g/dL Low 11.5-15.5 [facility] Comment on above: Order Comment: Speci men Type: BLOOD SPECIMENOrdering Facility: [facility] Address: [address] [place] [address] Performed By: #### 5 8410-2 ####[facility]ORATORYCLIA [id number] [address] MCH (RBC) [Entitic mass] 30.1 pg Normal 26.0-34.0 [facility] Comment on above: Order Comment: Speci men Type: BLOOD SPECIMENOrdering Facility: [facility] Address: [address] [place] [address] Performed By: #### 5 8410-2 ####[facility]ORATORYCLIA [id number] [address] [place] MCHC (RBC) [Mass/Vol] 31.7 g/dL Normal 30.5-36.0 [facility] Comment on above: Order Comment: Speci men Type: BLOOD SPECIMENOrdering Facility: [facility] Address: [address] [place] [address] Performed By: #### 5 8410-2 ####[facility] LABORATORYCLIA [id number] [address] MCV (RBC) [Entitic vol] 95.0 fL Normal 80.0-100.0 [facility] Comment on above: Order Comment: Speci men Type: BLOOD SPECIMENOrdering Facility: [facility] Address: [address] [address] Performed By: #### 5 8410-2 ####[facility] LABORATORYCLIA [id number] [address] [place] Nucleated RBC (Bld) [#/Vol] 0.03 10*3/uL High <0.01 [facility] Comment on above: Order Comment: Speci men Type: BLOOD SPECIMENOrdering Facility: [facility] Address: [address] [place] [address] Performed By: #### 5 8410-2 ####[facility]ORATORYCLIA [id number] [address] [place] Platelet mean volume (Bld) [Entitic vol] 10.2 fL Normal 9.0-12.7 [facility] Comment on above: Order Comment: Speci men Type: BLOOD SPECIMENOrdering Facility: [facility] Address: [address] [place] [address] Performed By: #### 5 8410-2 ####[facility]ORATORYCLIA [id number] [address] [place] Platelets (Bld) [#/Vol] 234 10*3/uL Normal 150-400 [facility] Comment on above: Order Comment: Speci men Type: BLOOD SPECIMENOrdering Facility: [facility] Address: [address] [place] [address] Performed By: #### 5 8410-2 ####[facility]ORATORYCLIA [id number] [address] [place] RBC (Bld) [#/Vol] 2.82 10*6/uL Low 3.90-5.20 [facility] Comment on above: Order Comment: Speci men Type: BLOOD SPECIMENOrdering Facility: [facility] Address: [address] [place] [address] Performed By: #### 5 8410-2 ####[facility]ORATORYCLIA [id number] [address] [place] WBC (Bld) [#/Vol] 8.77 10*3/uL Normal 3.70-11.00 [facility] Comment on above: Order Comment: Speci men Type: BLOOD SPECIMENOrdering Facility: [facility] Address: [place] [address] Performed By: #### 5 8410-2 ####[facility] LABORATORYCLIA [id number] [place] [address] [facility] CONSULT PROGon 06-18-2022 CONSULT PROG HNO ID: [id number] Author: Jessica Colmenares APRN.STORES CLERK Service: Cardiovascular Medicine Author Type: Nurse Practitioner Type: Consult Progress Note Filed: 06/18/2022 2:46 PM Note Text: The ECHO reviewed, EF 59%. No significant valvular abnormalities. Chart reviewed, no further recommendations. Thank you, Jessica Colmenares APRN.STORES CLERK Normal [facility] CONSULT PROG HNO ID: [id number] Author: Cirilo Yip RPh Service: Pharmacy Author [...] Cirilo Yip RPh DATE/TIME: 06/18/2022 12:02 PM [facility] CONSULT PROG HNO ID: [id number] Author: Nimo Arzola MD Service: General Surgery [...] questions or concerns Mon-Fri 6a-5p please page [phone]. After 5pm and on Weekends and Holidays, please page [phone] if in ICU or [phone] if on RNF. Subjective SUBJECTIVE: No acute [...] 0659 06/18/22 07 - 06/19/22 0659 Shift 6383-2372 2394-0612 0854-2563 24 Hour Total 4495-5212 8356-9591 9900-8874 24 Hour Total INTAKE IV 350 15 365 Volume (mL) 15 15 Volume (mL) (lactated ringers iv infusion) 350 350 Shift Total 350 15 365 OUTPUT Urine 2292 674 5514 Void (ml) 1450 1450 Output ( External Collection Device 06/16/22 2331) 400 400 # of BMs Stool Incontinence 1 x 1 x Number of BMs 1 x 1 x Shift Total 5782 771 8226 Weight (kg) 71.2 71.2 71.2 71.2 71.2 [...] panelon Cholesterol [Mass/Vol] 139 mg/dL Normal <200 [facility] Comment on above: Order Comment: Speci men Type: BLOOD SPECIMENOrdering Facility: [facility] Address: [address] [place] [address] Result Comment: <200 mg/dL, Desirable 200-239 mg/dL, Borderline high >239 mg/dL, High Performed By: #### 2 4321-2, 36543-7, , 2776-07 ####[facility]ATORYCLIA [id number] [address] STATES OF [facility] Cholesterol in HDL [Mass/Vol] 56 mg/dL Normal >39 [facility] Comment on above: Order Comment: Speci [facility] Type: BLOOD SPECIMENOrdering Facility: [facility] Address: [address] [place] [address] Result Comment: 40-5 9 mg/dL, Acceptable >59 mg/dL, High: Negative risk factor for coronary heart disease <40 mg/dL, Low: Positive risk factor for coronary heart disease Performed By: #### 2 4321-2, 93984-4, , 2776-07 ####[facility]ATORYCLIA [id number] [address] [place] Cholesterol in LDL [Mass/Vol] 64 mg/dL Normal <100 [facility] Comment on above: Order Comment: Speci men Type: BLOOD SPECIMENOrdering Facility: [facility] Address: [address] [place], [place] [address] Result Comment: <100 mg/dL, Optimal 100-129 mg/dL, Near optimal/above optimal 130-159 mg/dL, Borderline high 160-189 mg/dL, High >189 mg/dL, Very high Secondary prevention optimal LDL Cholesterol levels are recommended to be < 70 mg/dL Performed By: #### 2 4321-2, 20886-4, , 2776-07 ####[facility]ATORYCLIA [id number] [place] [address] [place] Cholesterol in LDL/Cholesterol in HDL [Mass ratio] 1.14 {ratio} Normal <2.54 [facility] Comment on above: Order Comment: Speci men Type: BLOOD SPECIMENOrdering Facility: [facility] Address: [address] [place] [address] Result Comment: Refe rence: 1. National Cholesterol Education Program ATP III Guideline At-A-Glance Quick Desk Reference: National Heart, Lung, and Blood [place]. National Institutes of Health. 2001: NIH Publication No. 01-3305. 2. An International Atherosclerosis Society position paper: global recommendations for the management of dyslipidemia: executive summary, Atherosclerosis. 2014: 232(2):410-413. Performed By: #### 2 4321-2, 26503-4, , 2776-07 ####[facility]ATORYCLIA [id number] [place] [address] [place] Cholesterol in VLDL [Mass/Vol] 19 mg/dL Normal <30 [facility] Comment on above: Order Comment: Speci isabella Type: BLOOD SPECIMENOrdering Facility: [facility] Address: [address] [place], [place] [address] Performed By: #### 2 4321-2, 79756-5, , 2776-07 ####[facility]ATORYCLIA [id number] [place] [address] [place] Cholesterol non HDL [Mass/Vol] 83 mg/dL Normal <130 [facility] Comment on above: Order Comment: Speci men Type: BLOOD SPECIMENOrdering Facility: [facility] Address: [address] [place] [address] Result Comment: <130 mg/dL, Optimal 130-159 mg/dL, Near optimal/above optimal 160-189 mg/dL, Borderline high 190-219 mg/dL, High >219 mg/dL, Very high Secondary prevention optimal non HDL Cholesterol levels are recommended to be <100 mg/dL Performed By: #### 2 4321-2, 47177-4, , 2776-07 ####[facility]ORATORYCLIA [id number] [address] OF [facility] Cholesterol.total/Pastora sterol in HDL [Mass ratio] 2.48 {ratio} Normal <5.10 [facility] Comment on above: Order Comment: Speci men Type: BLOOD SPECIMENOrdering Facility: [facility] Address: [address] [place] [address] Performed By: #### 2 4321-2, 37352-0, , 2776-07 ####[facility]ORATORYCLIA [id number] [address] OF [facility] FASTING TIME 8 hrs Normal [facility] Comment on above: Order Comment: Speci men Type: BLOOD SPECIMENOrdering Facility: [facility] Address: [address] [place] [address] Performed By: #### 2 4321-2, 92861-4, , 2776-07 ####[facility]ORATORYCLIA [id number] [address] [place] Triglyceride [Mass/Vol] 93 mg/dL Normal <150 [facility] Comment on above: Order Comment: Speci men Type: BLOOD SPECIMENOrdering Facility: [facility] Address: [address] [place] [address] Result Comment: <150 mg/dL, Normal 150-199 mg/dL, Borderline high 200-499 mg/dL, High >499 mg/dL, Very high Performed By: #### 2 4321-2, 83820-2, , 2776-07 ####[facility]ATORYCLIA [id number] [place] [address] [place] Magnesium SerPl-mCncon 06-18 Magnesium [Mass/Vol] 2.1 mg/dL Normal 1.7-2.3 [facility] Comment on above: Order Comment: Speci men Type: BLOOD SPECIMENOrdering Facility: [facility] Address: [address] [place] [address] Performed By: #### 2 4321-2, 24608-0, , 2776-07 ####[facility]ORATORYCLIA [id number] [address] [place] Phosphate SerPl-mCncon 06-18 Phosphate [Mass/Vol] 3.3 mg/dL Normal 2.7-4.8 [facility] Comment on above: Order Comment: Speci men Type: BLOOD SPECIMENOrdering Facility: [facility] Address: [address] [place] [address] Performed By: #### 2 4321-2, 32272-8, , 2776-07 ####[facility]ORATORYCLIA [id number] [address] [place] aPTT PPPon 06-18-2022 aPTT Coag (PPP) [Time] 37.2 s High 23.0-32.4 [facility] Comment on above: Order Comment: Speci men Type: BLOOD SPECIMENOrdering Facility: [facility] Address: [address] [place] [address] Performed By: #### 9 4500-6 #### [facility] CLIA [id number] [address] [place] aPTT Coag (PPP) [Time] 58.8 s High 23.0-32.4 [facility] Comment on above: Order Comment: Speci men Type: BLOOD SPECIMENOrdering Facility: [facility] Address: [address] [place] [address] Performed By: #### 1 4979-9 ####[facility]ORATORYCLIA [id number] [address] [place] aPTT Coag (PPP) [Time] 127.7 s High 23.0-32.4 [facility] Comment on above: Order Comment: Speci men Type: BLOOD SPECIMEN Ordering Facility: [facility] Address: [address] [place] [address] Performed By: #### T SCR #### [facility] CLIA [id number] [address] ALLIED HEALTHon 06-17-2022 ALLIED HEALTH HNO ID: [id number] Author: RT [place](Tiffanie) Service: Radiology Author Type: [...] [place](R) June 17, 2022 9:30 AM Normal [facility] HNO ID: [id number] Author: Jeremías Bragg II Service: Infection Prevention [...] TIME: 8:27 AM PAGER/CONTACT #: Infection Prevention, [id number] Infection Prevention after hours/weekend pager: [phone] Normal [facility] ANES POSTPROC EVALon 022 ANES POSTPROC EVAL HNO ID: [id number] Author: Larry Moss MD Service: Anesthesiology Author Type: Anesthesiologist Type: Anesthesia Postprocedure Evaluation Filed: 06/17/2022 6:51 AM Note Text: POST ANESTHESIA EVALUATION NOTE : 1940 Procedure Summary Date: 06/16/22 Room / Location: [place] OR / [place] Anesthesia Start: 1609 Anesthesia Stop: 1934 [...] June 17, 2022 TIME: 6:50 AM CSN: [id number] Normal [facility] Basic metabolic 2000 panelon 06-17-2022 Anion gap [Moles/Vol] 9 mmol/L Normal 9-18 [facility] Comment on above: Order Comment: Speci men Type: BLOOD SPECIMENOrdering Facility: [facility] Address: [address] [place] [address] Performed By: #### 2 4321-2, , 2776-07 ####[facility] LABORATORYCLIA [id number] [place] [address] [place] Calcium [Mass/Vol] 7.9 mg/dL Low 8.5-10.2 [facility] Comment on above: Order Comment: Speci men Type: BLOOD SPECIMENOrdering Facility: [facility] Address: [address] [address] Performed By: #### 2 4321-2, , 2776-07 ####[facility] LABORATORYCLIA [id number] [place] [address] [place] Chloride [Moles/Vol] 107 mmol/L High 97-105 [facility] Comment on above: Order Comment: Speci men Type: BLOOD SPECIMENOrdering Facility: [facility] Address: [address] [address] Performed By: #### 2 4321-2, , 2776-07 ####[facility] LABORATORYCLIA [id number] [place] [address] [place] CO2 [Moles/Vol] 21 mmol/L Low 22-30 [facility] Comment on above: Order Comment: Speci men Type: BLOOD SPECIMENOrdering Facility: [facility] Address: [address] [address] Performed By: #### 2 4321-2, 03385-8, 2776-07 ####[facility] LABORATORYCLIA [id number] [place] [id number] [place] OF [facility] Creatinine [Mass/Vol] 0.99 mg/dL High 0.58-0.96 [facility] Comment on above: Order Comment: Speci men Type: BLOOD SPECIMENOrdering Facility: [facility] Address: [address] [address] Performed By: #### 2 4321-2, , 2776-07 ####[facility] LABORATORYCLIA [id number] [address] OF [facility] ESTIMATED GLOMERULAR FILTRATION RATE 57 mL/min/1.73m??? Low >=60 [facility] Comment on above: Order Comment: Speci men Type: BLOOD SPECIMENOrdering Facility: [facility] Address: [address] [place] [address] Result Comment: Isa mated Glomerular Filtration Rate [...] Performed By: #### 2 4321-2, , 2776-07 ####[facility] LABORATORYCLIA [id number] [address] STATES OF [facility] Glucose [Mass/Vol] 84 mg/dL Normal 74-99 [facility] Comment on above: Order Comment: Speci men Type: BLOOD SPECIMENOrdering Facility: [facility] Address: [address] [place] [address] Result Comment: The [place] Diabetes Association (ADA) [...] Performed By: #### 2 4321-2, , 2776-07 ####[facility] LABORATORYCLIA [id number] [place] [address] [place] Potassium [Moles/Vol] 4.3 mmol/L Normal 3.7-5.1 [facility] Comment on above: Order Comment: Rhina mason Type: BLOOD SPECIMENOrdering Facility: [facility] Address: [address] [place] [address] Performed By: #### 2 4321-2, , 2776-07 ####[facility]CL[facility] [id number] [address] STATES OF [facility] Sodium [Moles/Vol] 137 mmol/L Normal 136-144 [facility] Comment on above: Order Comment: Rhina mason Type: BLOOD SPECIMENOrdering Facility: [facility] Address: [address] [place] [address] Performed By: #### 2 4321-2, , 2776-07 ####[facility] LABORATORYCLIA [id number] [place] [address] [place] Urea nitrogen [Mass/Vol] 27 mg/dL High 7-21 [facility] Comment on above: Order Comment: Rhina mason Type: BLOOD SPECIMENOrdering Facility: [facility] Address: [address] [place] [address] Performed By: #### 2 4321-2, , 2776-07 ####[facility] LABORATORYCLIA [id number] [place] [address] [place] CBC panel Auto (Bld)on 06-17 Erythrocyte distribution width (RBC) [Ratio] 15.5 % High 11.5-15.0 [facility] Comment on above: Order Comment: Speci men Type: BLOOD SPECIMENOrdering Facility: [facility] Address: [address] [place] [address] Performed By: #### 5 8410-2 ####[facility] LABORATORYCLIA [id number] [address] OF [facility] Hematocrit (Bld) [Volume fraction] 26.6 % Low 36.0-46.0 [facility] Comment on above: Order Comment: Speci men Type: BLOOD SPECIMENOrdering Facility: [facility] Address: [address] [place] [address] Performed By: #### 5 8410-2 ####[facility] LABORATORYCLIA [id number] [address] STATES OF [facility] Hemoglobin (Bld) [Mass/Vol] 8.5 g/dL Low 11.5-15.5 [facility] Comment on above: Order Comment: Speci men Type: BLOOD SPECIMENOrdering Facility: [facility] Address: [address] [place] [address] Performed By: #### 5 8410-2 ####[facility] LABORATORYCLIA [id number] [address] OF [place] MCH (RBC) [Entitic mass] 30.0 pg Normal 26.0-34.0 [facility] Comment on above: Order Comment: Speci men Type: BLOOD SPECIMENOrdering Facility: [facility] Address: [address] [place] [address] Performed By: #### 5 8410-2 ####[facility] LABORATORYCLIA [id number] [address] STATES [facility] MCHC (RBC) [Mass/Vol] 32.0 g/dL Normal 30.5-36.0 [facility] Comment on above: Order Comment: Speci men Type: BLOOD SPECIMENOrdering Facility: [facility] Address: [address] [place] [address] Performed By: #### 5 8410-2 ####[facility] LABORATORYCLIA [id number] [address] [place] MCV (RBC) [Entitic vol] 94.0 fL Normal 80.0-100.0 [facility] Comment on above: Order Comment: Speci men Type: BLOOD SPECIMENOrdering Facility: [facility] Address: [address] [place] [address] Performed By: #### 5 8410-2 ####[facility] LABORATORYCLIA [id number] [address] OF [facility] Nucleated RBC (Bld) [#/Vol] 0.02 10*3/uL High <0.01 [facility] Comment on above: Order Comment: Speci men Type: BLOOD SPECIMENOrdering Facility: [facility] Address: [address] [place] [address] Performed By: #### 5 8410-2 ####[facility] LABORATORYCLIA [id number] [address] Platelet mean volume (Bld) [Entitic vol] 9.5 fL Normal 9.0-12.7 [facility] Comment on above: Order Comment: Speci men Type: BLOOD SPECIMENOrdering Facility: [facility] Address: [address] [place] [address] Performed By: #### 5 8410-2 ####[facility] LABORATORYCLIA [id number] [address] [place] Platelets (Bld) [#/Vol] 223 10*3/uL Normal 150-400 [facility] Comment on above: Order Comment: Speci men Type: BLOOD SPECIMENOrdering Facility: [facility] Address: [address] [place] [address] Performed By: #### 5 8410-2 ####[facility] LABORATORYCLIA [id number] [address] [place] RBC (Bld) [#/Vol] 2.83 10*6/uL Low 3.90-5.20 [facility] Comment on above: Order Comment: Speci men Type: BLOOD SPECIMENOrdering Facility: [facility] Address: [address] [place] [address] Performed By: #### 5 8410-2 ####[facility] LABORATORYCLIA [id number] [address] WBC (Bld) [#/Vol] 8.61 10*3/uL Normal 3.70-11.00 [facility] Comment on above: Order Comment: Speci men Type: BLOOD SPECIMENOrdering Facility: [facility] Address: [address] Performed By: #### 5 8410-2 ####[facility] LABORATORYCLIA [id number] [place] [id number] [facility] CONSULTon 06-17-2022 CONSULT HNO ID: [id number] Author: García Monique MD Service: Cardiovascular Medicine Author Type: Physician Type: Consults Filed: 06/17/2022 11:14 AM Note Text: CARDIOVASCULAR INTENSIVE CARE UNIT (CVICU) History AND Physical Note PATIENT NAME: Mel Castillo DATE: June 17, 2022 ADMITTED FOR: Subjective HPI Ms. Mel Castillo is a 81 year old female with PMH: - Paroxysmal Afib - GERD - HTN - Hypothyroidism Patient presented to [facility] on 06/16/2022 for evaluation of [...] her covid symptoms. States doesnot see a card cutter helper and has no other past cardiac [...] Procedure Component Value Units Date/Time Expedited COVID19 [[id number]] (Abnormal) Collected: 06/16/22826 Order Status: Completed Specimen: [...] CONSULT PROGon 06-17-2022 CONSULT PROG HNO ID: [id number] Author: Dominique Lauren RP Service: Pharmacy Author [...] or concerns. SIGNATURE: Dominique Lauren [facility] DATE/TIME: 06/17/2022 3:47 PM [facility] CONSULT PROG HNO ID: [id number] Author: Emanuel Hull MD Service: General Surgery [...] questions or concerns Tue-Tue 6a-5p please page [phone]. 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 Normal [facility] ECHOon 06-17-2022 Echocardiography Echocardiography Report: Transthoracic Echo [facility] Date of service: 06/17/2022 10:27:19 [facility] Ordering physician: GARCÍA MONIQUE Indication: Nonsustained atrial fibrillation Technologist: Glendy Pena [facility] Interpreting physician: Nando Costa MD [...] * * Final * * * CC Filement Medical Image : [id number] Normal [facility] Magnesium [Mass/Vol] 2.1 mg/dL Normal 1.7-2.3 [facility] Comment on above: Order Comment: Rhina mason Type: BLOOD SPECIMENOrdering Facility: [facility] Address: [address] [id number] Performed By: #### 2 4321-2, , 2776-07 ####[facility] LABORATORYCLIA [id number] [place] [address] [place] Phosphate SerPl-mCncon 06-17 Phosphate [Mass/Vol] 3.8 mg/dL Normal 2.7-4.8 [facility] Comment on above: Order Comment: Rhina mason Type: BLOOD SPECIMENOrdering Facility: [facility] Address: [address] Performed By: #### 2 4321-2, , 7-1 ####[facility] LABORATORYCLIA [id number] [address] STATES OF [facility] XR CHEST 1V FRONTALon 2021 XR CHEST [...] Comparison: None. RESULT: Lines, tubes, and devices: city alderman leads. Hardware noted in the proximal right [...] in both lungs suspicious for multifocal pneumonia. Grants Analyst: DEVEN Transcribe Date/Time: Jun 17 2022 10:41A Dictated by : DI MINER MD This examination was interpreted and the report reviewed and electronically signed by: DI MINRE MD on Jun 17 2022 10:43AM EST [id number] Normal [facility] aPTT PPPon 06-17-2022 aPTT Coag (PPP) [Time] 48.4 s High 23.0-32.4 [facility] Comment on above: Order Comment: Speci men Type: BLOOD SPECIMENOrdering Facility: [facility] Address: [address] [place], [place] [address] Performed By: #### 9 4500-6 #### [facility] CLIA [id number] [address] aPTT Coag (PPP) [Time] 29.4 s Normal 23.0-32.4 [facility] Comment on above: Order Comment: Speci men Type: BLOOD SPECIMENOrdering Facility: [facility] Address: [address] [place] [address] Performed By: #### 3 2355-0 #### [facility] CLIA [id number] [address] aPTT Coag (PPP) [Time] 125.1 s High 23.0-32.4 [facility] Comment on above: Order Comment: Speci men Type: BLOOD SPECIMEN Ordering Facility: [facility] Address: [address] [place] [address] Performed By: #### T SCR #### [facility] CLIA [id number] [address] aPTT Coag (PPP) [Time] s High 23.0-32.4 [facility] Comment on above: Order Comment: Speci men Type: BLOOD SPECIMENOrdering Facility: [facility] Address: [address] [place] [address] Performed By: #### 3 2355-0 #### [facility] CLIA [id number] [address] aPTT Coag (PPP) [Time] 28.5 s Normal 23.0-32.4 [facility] Comment on above: Order Comment: Speci men Type: BLOOD SPECIMENOrdering Facility: [facility] Address: [address] [place] [address] Performed By: #### 1 4979-9 ####[facility] LABORATORYCLIA [id number] [address] OF [facility] ANES PRE-OPon 06-16-2022 ANES PRE-OP HNO ID: [id number] Author: Olu Winn MD Service: Anesthesiology Author [...] adequate. Short neck: no. Thick neck: no Raenas present: no DENTAL Dental findings: edentulous. Dentures, [...] June 16, 2022 TIME: 3:44 PM CSN: [id number] [facility] BRIEF OP NOTon 06-16-2022 BRIEF OP NOT HNO ID: [id number] Author: Emanuel Hull MD Service: General Surgery [...] BRIEF OPERATIVE / PROCEDURE NOTE LOG ID: [id number] Surgery/Procedure Date: 06/16/2022 Incision/Procedure Start Time: 5:01 PM Incision Close/Procedure End Time: 6:58 PM Surgeon(s)/Proceduralis t(s) and Central Service Tech(s): Surgeon(s) and Role: * Frida Rodriguez MD [...] and on weekends, please page surgery on-call [phone] (RNF) or [phone] (ICU) SIGNATURE: Emanuel Hull MD PATIENT NAME: Mel Castillo DATE: June 16, 2022 TIME: 7:19 PM PAGER/CONTACT #: [phone] Normal [facility] CBC W Auto Differential pane l (Bld)on 06-16-2022 Anisocytosis Ql (Bld) Present Normal [facility] Comment on above: Order Comment: Speci men Type: BLOOD SPECIMENOrdering Facility: [facility] Address: [address] [place] [place] [address] Performed By: #### 5 7021-8 ####[facility] LABORATORYCLIA [id number] [place] [address] [place] Basophils (Bld) [#/Vol] 0.00 10*3/uL Normal <0.11 [facility] Comment on above: Order Comment: Speci men Type: BLOOD SPECIMENOrdering Facility: [facility] Address: [address] [place] [address] Performed By: #### 5 7021-8 ####[facility]ORATORYCLIA [id number] [address] Basophils/100 WBC (Bld) 0.0 % Normal [facility] Comment on above: Order Comment: Speci men Type: BLOOD SPECIMENOrdering Facility: [facility] Address: [address] [place] [address] Performed By: #### 5 7021-8 ####[facility] LABORATORYCLIA [id number] [address] Differential cell count method Nom (Bld) Manual Normal [facility] Comment on above: Order Comment: Speci men Type: BLOOD SPECIMENOrdering Facility: [facility] Address: [address] [place] [address] Performed By: #### 5 7021-8 ####[facility] LABORATORYCLIA [id number] [address] OF [facility] Eosinophils (Bld) [#/Vol] 0.00 10*3/uL Normal <0.46 [facility] Comment on above: Order Comment: Speci men Type: BLOOD SPECIMENOrdering Facility: [facility] Address: [address] [place] [address] Performed By: #### 5 7021-8 ####[facility] LABORATORYCLIA [id number] [address] Eosinophils/100 WBC (Bld) 0.0 % Normal [facility] Comment on above: Order Comment: Speci men Type: BLOOD SPECIMENOrdering Facility: [facility] Address: [address] [place] [address] Performed By: #### 5 7021-8 ####[facility] LABORATORYCLIA [id number] [address] Erythrocyte distribution width (RBC) [Ratio] 15.6 % High 11.5-15.0 [facility] Comment on above: Order Comment: Speci men Type: BLOOD SPECIMENOrdering Facility: [facility] Address: [address] [place] [address] Performed By: #### 5 7021-8 ####[facility] LABORATORYCLIA [id number] [address] [place] Hematocrit (Bld) [Volume fraction] 35.3 % Low 36.0-46.0 [facility] Comment on above: Order Comment: Speci men Type: BLOOD SPECIMENOrdering Facility: [facility] Address: [address] [place] [address] Performed By: #### 5 7021-8 ####[facility] LABORATORYCLIA [id number] [address] [place] Hemoglobin (Bld) [Mass/Vol] 11.4 g/dL Low 11.5-15.5 [facility] Comment on above: Order Comment: Speci men Type: BLOOD SPECIMENOrdering Facility: [facility] Address: [address] [place] [address] Performed By: #### 5 7021-8 ####[facility] LABORATORYCLIA [id number] [address] [place] Lymphocytes (Bld) [#/Vol] 1.27 10*3/uL Normal 1.00-4.00 [facility] Comment on above: Order Comment: Speci men Type: BLOOD SPECIMENOrdering Facility: [facility] Address: [address] [place] [address] Performed By: #### 5 7021-8 ####[facility] LABORATORYCLIA [id number] [address] [place] Lymphocytes/100 WBC (Bld) 8.0 % Normal [facility] Comment on above: Order Comment: Speci men Type: BLOOD SPECIMENOrdering Facility: [facility] Address: [address] [place] [address] Performed By: #### 5 7021-8 ####[facility] LABORATORYCLIA [id number] [address] [place] MCH (RBC) [Entitic mass] 30.2 pg Normal 26.0-34.0 [facility] Comment on above: Order Comment: Speci men Type: BLOOD SPECIMENOrdering Facility: [facility] Address: [address] [place] [address] Performed By: #### 5 7021-8 ####[facility] LABORATORYCLIA [id number] [address] MCHC (RBC) [Mass/Vol] 32.3 g/dL Normal 30.5-36.0 [facility] Comment on above: Order Comment: Speci men Type: BLOOD SPECIMENOrdering Facility: [facility] Address: [address] [place] [address] Performed By: #### 5 7021-8 ####[facility] LABORATORYCLIA [id number] [address] MCV (RBC) [Entitic vol] 93.6 fL Normal 80.0-100.0 [facility] Comment on above: Order Comment: Speci men Type: BLOOD SPECIMENOrdering Facility: [facility] Address: [address] [place] [address] Performed By: #### 5 7021-8 ####[facility] LABORATORYCLIA [id number] [address] Monocytes (Bld) [#/Vol] 1.74 10*3/uL High <0.87 [facility] Comment on above: Order Comment: Speci men Type: BLOOD SPECIMENOrdering Facility: [facility] Address: [address] [place] [address] Performed By: #### 5 7021-8 ####[facility] LABORATORYCLIA [id number] [address] Monocytes/100 WBC (Bld) 11.0 % Normal [facility] Comment on above: Order Comment: Speci men Type: BLOOD SPECIMENOrdering Facility: [facility] Address: [address] [place] [address] Performed By: #### 5 7021-8 ####[facility] LABORATORYCLIA [id number] [address] MYELO% 4.0 % Normal [facility] Comment on above: Order Comment: Speci men Type: BLOOD SPECIMENOrdering Facility: [facility] Address: [address] [place] [address] Performed By: #### 5 7021-8 ####[facility] LABORATORYCLIA [id number] [place] [address] [place] Neutrophils (Bld) [#/Vol] 12.02 10*3/uL High 1.45-7.50 [facility] Comment on above: Order Comment: Speci men Type: BLOOD SPECIMENOrdering Facility: [facility] Address: [address] [address] Performed By: #### 5 7021-8 ####[facility] LABORATORYCLIA [id number] [address] [place] Neutrophils/100 WBC (Bld) 76.0 % Normal [facility] Comment on above: Order Comment: Speci men Type: BLOOD SPECIMENOrdering Facility: [facility] Address: [address] [address] Performed By: #### 5 7021-8 ####[facility] LABORATORYCLIA [id number] [place] [address] [place] Nucleated RBC (Bld) [#/Vol] 10*3/uL Normal <0.01 [facility] Comment on above: Order Comment: Speci men Type: BLOOD SPECIMENOrdering Facility: [facility] Address: [address] [place] [address] Performed By: #### 5 7021-8 ####[facility] LABORATORYCLIA [id number] [address] [place] Nucleated RBC/100 WBC (Bld) [Ratio] 0.0 /100 WBC Normal [facility] Comment on above: Order Comment: Speci men Type: BLOOD SPECIMENOrdering Facility: [facility] Address: [address] [address] Performed By: #### 5 7021-8 ####[facility] LABORATORYCLIA [id number] [address] [place] Platelet mean volume (Bld) [Entitic vol] 9.7 fL Normal 9.0-12.7 [facility] Comment on above: Order Comment: Speci men Type: BLOOD SPECIMENOrdering Facility: [facility] Address: [address] [address] Performed By: #### 5 7021-8 ####[facility] LABORATORYCLIA [id number] [address] [place] Platelets (Bld) [#/Vol] 373 10*3/uL Normal 150-400 [facility] Comment on above: Order Comment: Speci men Type: BLOOD SPECIMENOrdering Facility: [facility] Address: [address] [place] [address] Performed By: #### 5 7021-8 ####[facility] LABORATORYCLIA [id number] [address] Platelets Estimate (Bld) [#/Vol] Adequate Normal [facility] Comment on above: Order Comment: Speci men Type: BLOOD SPECIMENOrdering Facility: [facility] Address: [address] [place] [address] Performed By: #### 5 7021-8 ####[facility] LABORATORYCLIA [id number] [address] PROMYL% 1.0 % Normal [facility] Comment on above: Order Comment: Speci men Type: BLOOD SPECIMENOrdering Facility: [facility] Address: [address] [place] [address] Performed By: #### 5 7021-8 ####[facility] LABORATORYCLIA [id number] [place] [address] [place] RBC (Bld) [#/Vol] 3.77 10*6/uL Low 3.90-5.20 [facility] Comment on above: Order Comment: Speci men Type: BLOOD SPECIMENOrdering Facility: [facility] Address: [address] [place] [address] Performed By: #### 5 7021-8 ####[facility] LABORATORYCLIA [id number] [address] RED CELL MORPH Normal Normal [facility] Comment on above: Order Comment: Speci men Type: BLOOD SPECIMENOrdering Facility: [facility] Address: [address] [place] [address] Performed By: #### 5 7021-8 ####[facility] LABORATORYCLIA [id number] [address] SPHEROCYTES Few Normal [facility] Comment on above: Order Comment: Speci men Type: BLOOD SPECIMENOrdering Facility: [facility] Address: [address] [place] [address] Performed By: #### 5 7021-8 ####[facility] LABORATORYCLIA [id number] [address] WBC (Bld) [#/Vol] 15.82 10*3/uL High 3.70-11.00 [facility] Comment on above: Order Comment: Speci men Type: BLOOD SPECIMENOrdering Facility: [facility] Address: [address] [place] [address] Result Comment: Resu lts checked and verified. Performed By: #### 5 7021-8 ####[facility] LABORATORYCLIA [id number] [address] CBC panel Auto (Bld)on 06-16 Erythrocyte distribution width (RBC) [Ratio] 15.5 % High 11.5-15.0 [facility] Comment on above: Order Comment: Speci men Type: BLOOD SPECIMENOrdering Facility: [facility] Address: [address] [place] [address] Performed By: #### 5 8410-2 ####[facility] LABORATORYCLIA [id number] [address] Hematocrit (Bld) [Volume fraction] 30.1 % Low 36.0-46.0 [facility] Comment on above: Order Comment: Speci men Type: BLOOD SPECIMENOrdering Facility: [facility] Address: [address] [place] [address] Performed By: #### 5 8410-2 ####[facility] LABORATORYCLIA [id number] [address] Hemoglobin (Bld) [Mass/Vol] 9.8 g/dL Low 11.5-15.5 [facility] Comment on above: Order Comment: Speci men Type: BLOOD SPECIMENOrdering Facility: [facility] Address: [address] [place] [address] Performed By: #### 5 8410-2 ####[facility] LABORATORYCLIA [id number] [address] MCH (RBC) [Entitic mass] 30.8 pg Normal 26.0-34.0 [facility] Comment on above: Order Comment: Speci men Type: BLOOD SPECIMENOrdering Facility: [facility] Address: [address] [place] [address] Performed By: #### 5 8410-2 ####[facility] LABORATORYCLIA [id number] [address] MCHC (RBC) [Mass/Vol] 32.6 g/dL Normal 30.5-36.0 [facility] Comment on above: Order Comment: Speci men Type: BLOOD SPECIMENOrdering Facility: [facility] Address: [address] [place] [address] Performed By: #### 5 8410-2 ####[facility] LABORATORYCLIA [id number] [address] MCV (RBC) [Entitic vol] 94.7 fL Normal 80.0-100.0 [facility] Comment on above: Order Comment: Speci men Type: BLOOD SPECIMENOrdering Facility: [facility] Address: [address] [place] [address] Performed By: #### 5 8410-2 ####[facility] LABORATORYCLIA [id number] [address] [address] Nucleated RBC (Bld) [#/Vol] 0.08 10*3/uL High <0.01 [facility] Comment on above: Order Comment: Speci men Type: BLOOD SPECIMENOrdering Facility: [facility] Address: [address] [place] [address] Performed By: #### 5 8410-2 ####[facility] LABORATORYCLIA [id number] [address] [place] Platelet mean volume (Bld) [Entitic vol] 9.6 fL Normal 9.0-12.7 [facility] Comment on above: Order Comment: Speci men Type: BLOOD SPECIMENOrdering Facility: [facility] Address: [address] [place] [address] Performed By: #### 5 8410-2 ####[facility] LABORATORYCLIA [id number] [address] [place] Platelets (Bld) [#/Vol] 277 10*3/uL Normal 150-400 [facility] Comment on above: Order Comment: Speci men Type: BLOOD SPECIMENOrdering Facility: [facility] Address: [address] [place] [address] Performed By: #### 5 8410-2 ####[facility] LABORATORYCLIA [id number] [address] [place] RBC (Bld) [#/Vol] 3.18 10*6/uL Low 3.90-5.20 [facility] Comment on above: Order Comment: Speci men Type: BLOOD SPECIMENOrdering Facility: [facility] Address: [address] [place] [address] Performed By: #### 5 8410-2 ####[facility] LABORATORYCLIA [id number] [address] [place] WBC (Bld) [#/Vol] 10.43 10*3/uL Normal 3.70-11.00 [facility] Comment on above: Order Comment: Speci men Type: BLOOD SPECIMENOrdering Facility: [facility] Address: [address] [place] [address] [place] [address] Performed By: #### 5 8410-2 ####[facility] [id number] [address] STATES OF [facility] CONSULTon 06-16-2022 CONSULT HNO ID: [id number] Author: Iman Saldana DO Service: General Surgery [...] lobe consolidation may represent pneumonia or atelectasis. Grants Analyst: DEVEN Transcribe Date/Time: Jun 16 2022 7:54A [...] Comment: Speci men Type: BLOOD SPECIMENOrdering Facility: [facility] Address: [address] [place] [address] Performed By: #### 3 3959-8, 03548-9, 29529-4, 27039-7 ####[facility] LABORATORYCLIA [id number] [address] STATES OF [facility] ALP [Catalytic activity/Vol] 111 U/L Normal 34-123 [facility] Comment on above: Order Comment: Speci men Type: BLOOD SPECIMENOrdering Facility: [facility] Address: [address] [place] [address] Performed By: #### 3 3959-8, 44686-0, 10717-6, 78706-2 ####[facility] LABORATORYCLIA [id number] [address] STATES OF [facility] ALT With P-5'-P [Catalytic activity/Vol] 20 U/L Normal 7-38 [facility] Comment on above: Order Comment: Speci men Type: BLOOD SPECIMENOrdering Facility: [facility] Address: [address] [place] [address] Performed By: #### 3 3959-8, 02268-1, 95422-2, 96498-8 ####[facility] LABORATORYCLIA [id number] [address] Anion gap [Moles/Vol] 17 mmol/L Normal 9-18 [facility] Comment on above: Order Comment: Speci men Type: BLOOD SPECIMENOrdering Facility: [facility] Address: [address] [place] [address] Performed By: #### 3 3959-8, 88161-2, 87719-1, 00021-4 ####[facility] LABORATORYCLIA [id number] [address] AST With P-5'-P [Catalytic activity/Vol] 13 U/L Normal 13-35 [facility] Comment on above: Order Comment: Speci men Type: BLOOD SPECIMENOrdering Facility: [facility] Address: [address] [place] [address] Performed By: #### 3 3959-8, 79145-0, 34950-5, 00292-1 ####[facility] LABORATORYCLIA [id number] [place] [address] [place] Bilirubin [Mass/Vol] 0.3 mg/dL Normal 0.2-1.3 [facility] Comment on above: Order Comment: Speci men Type: BLOOD SPECIMENOrdering Facility: [facility] Address: [address] [place] [address] Performed By: #### 3 3959-8, 74553-5, 34333-0, 23688-6 ####[facility] LABORATORYCLIA [id number] [place] [address] [place] Calcium [Mass/Vol] 9.1 mg/dL Normal 8.5-10.2 [facility] Comment on above: Order Comment: Speci men Type: BLOOD SPECIMENOrdering Facility: [facility] Address: [address] [place] [address] Performed By: #### 3 3959-8, 01230-4, 96044-7, 46950-4 ####[facility] LABORATORYCLIA [id number] [place] [address] [place] Chloride [Moles/Vol] 104 mmol/L Normal 97-105 [facility] Comment on above: Order Comment: Speci men Type: BLOOD SPECIMENOrdering Facility: [facility] Address: [address] [place] [address] Performed By: #### 3 3959-8, 00138-8, 28141-2, 37376-4 ####[facility] LABORATORYCLIA [id number] [place] [address] [place] CO2 [Moles/Vol] 18 mmol/L Low 22-30 [facility] Comment on above: Order Comment: Speci men Type: BLOOD SPECIMENOrdering Facility: [facility] Address: [address] [address] Performed By: #### 3 3959-8, 40508-9, 12291-9, 89182-3 ####[facility] LABORATORYCLIA [id number] [place] [id number] [place] Creatinine [Mass/Vol] 1.14 mg/dL High 0.58-0.96 [facility] Comment on above: Order Comment: Speci men Type: BLOOD SPECIMENOrdering Facility: [facility] Address: [address] [address] Performed By: #### 3 3959-8, 37115-2, 81206-7, 22409-3 ####[facility] [id number] [place] [address] [place] ESTIMATED GLOMERULAR FILTRATION RATE 48 mL/min/1.73m??? Low >=60 [facility] Comment on above: Order Comment: Speci men Type: BLOOD SPECIMENOrdering Facility: [facility] Address: [address] [place] [address] Result Comment: Isa mated Glomerular Filtration Rate [...] actual GFR. Performed By: #### 3 3959-8, 76055-9, 87401-9, 80778-7 ####[facility] LABORATORYCLIA [id number] [place] [address] [place] Glucose [Mass/Vol] 122 mg/dL High 74-99 [facility] Comment on above: Order Comment: Speci men Type: BLOOD SPECIMENOrdering Facility: [facility] Address: [address] [address] Result Comment: The [place] [employer] (ADA) [...] 2016.39(Suppl 1). Performed By: #### 3 3959-8, 52374-2, 57154-2, 90721-1 ####[facility] LABORATORYCLIA [id number] [place] [address] [place] Potassium [Moles/Vol] 4.4 mmol/L Normal 3.7-5.1 [facility] Comment on above: Order Comment: Speci men Type: BLOOD SPECIMENOrdering Facility: [facility] Address: [address] [address] Performed By: #### 3 3959-8, 17456-1, 21108-7, 81154-7 ####[facility] [id number] [place] [address] [place] Protein [Mass/Vol] 6.6 g/dL Normal 6.3-8.0 [facility] Comment on above: Order Comment: Speci men Type: BLOOD SPECIMENOrdering Facility: [facility] Address: [address] [address] Performed By: #### 3 3959-8, 10646-7, 48062-0, 64393-2 ####[facility] LABORATORYCLIA [id number] [place] [address] [place] Sodium [Moles/Vol] 139 mmol/L Normal 136-144 [facility] Comment on above: Order Comment: Speci men Type: BLOOD SPECIMENOrdering Facility: [facility] Address: [address] [address] Performed By: #### 3 3959-8, 29451-3, 76133-1, 73869-2 ####[facility] LABORATORYCLIA [id number] [place] [address] [facility] Urea nitrogen [Mass/Vol] 35 mg/dL High 7- [facility] Comment on above: Order Comment: Speci men Type: BLOOD SPECIMENOrdering Facility: [facility] Address: [address] [place], [place] [address] [id number] Performed By: #### 3 3959-8, 86142-7, 79420-0, 38028-4 ####[facility] LABORATORYCLIA [id number] [place] [address] [facility] ED NOTEon 06-16-2022 ED NOTE HNO ID: [id number] Author: Adela Cortez RN Service: Emergency Medicine Author Type: Registered Nurse Type: ED Notes Filed: 06/16/2022 11:27 AM Note Text: Pts aptt is >139. Nongram states to hold dose and let MD know. Vascular resident made aware, ordered to hold dose x1 hour and then redraw aptt. Normal [facility] ED NOTE HNO ID: [id number] Author: Nancy Scott RN Service: Emergency Medicine Author Type: Registered Nurse Type: ED Notes Filed: 06/16/2022 7:13 AM Note Text: CT notified that pt has been moved to new room and is ready for testing Normal [facility] ED NOTE HNO ID: [id number] Author: Marleen Blank RN Service: ? Author Type: Registered Nurse Type: ED Notes Filed: 06/16/2022 6:59 AM Note Text: Bed: 19-ED Expected date: Expected time: Means of arrival: Comments: Normal [facility] ED NOTE HNO ID: [id number] Author: Nancy Scott RN Service: Emergency Medicine Author Type: Registered Nurse Type: ED Notes Filed: 06/16/2022 6:44 AM Note Text: CT delayed due to pt needing to move rooms because of bed bugs. Normal [facility] ED NOTE HNO ID: [id number] Author: Nancy Scott RN Service: Emergency Medicine Author Type: Registered Nurse Type: ED Notes Filed: 06/16/2022 3:09 AM Note Text: CT form faxed, ptt sent [facility] ED NOTE HNO ID: [id number] Author: Nancy Scott RN Service: Emergency Medicine Author Type: Registered Nurse Type: ED Notes Filed: 06/16/2022 3:02 AM Note Text: US notified [facility] ED NOTE HNO ID: [id number] Author: Nancy Scott RN Service: Emergency Medicine Author Type: Registered Nurse Type: ED Notes Filed: 06/16/2022 2:48 AM Note Text: CT notified [facility] ED NOTE HNO ID: [id number] Author: Nancy Scott RN Service: Emergency Medicine Author Type: Registered Nurse Type: ED Notes Filed: 06/16/2022 2:43 AM Note Text: Labs sent [facility] ED NOTE HNO ID: [id number] Author: Davian Chen RN Service: ? Author Type: Registered Nurse Type: ED Notes Filed: 06/16/2022 2:06 AM Note Text: Bed: 15-ED Expected date: Expected time: Means of arrival: Comments: ramesh [facility] ED PROV NOTEon 06-16-2022 ED PROV NOTE HNO ID: [id number] Author: Vanessa Trevizo DO Service: Emergency Medicine [...] [facility] ED PROV NOTE HNO ID: [id number] Author: Vanessa Trevizo DO Service: Emergency Medicine [...] QTC Calculation(Bazett) : 386 ms Calculated R [place] : 46 degrees Calculated T [place] : -40 degrees ATRIAL FIBRILLATION WITH RAPID VENTRICULAR RESPONSE ABNORMAL QRS-T ANGLE, CONSIDER PRIMARY T WAVE ABNORMALITY ABNORMAL ECG NO PREVIOUS ECGS AVAILABLE Confirmed by MD LEONE CAROL ([id number]) on 06/16/2022 6:43:12 PM NAME : MEL GUADARRAMA PID : [id number] : 1940 Gender : Female Race : ORD : Procedure Date : Jun 16 2022 07:37:07 Edit Date : Jun 16 2022 18:43:17 Diagnosis: ATRIAL FIBRILLATION WITH RAPID VENTRICULAR RESPONSE ABNORMAL QRS-T ANGLE, CONSIDER PRIMARY T WAVE ABNORMALITY ABNORMAL ECG NO PREVIOUS ECGS AVAILABLE Confirmed by MD LEONE CAROL ([id number]) on 06/16/2022 6:43:12 PM Test Reason : Location : 4 : AKED 19 Overread By : MD LEONE CAROL Edited By : MD LEONE CAROL Referred By : , Acquired by : PATRICIA MOE Normal [facility] HIGH SENSITIVITY TROPONIN T (INITIAL)on 06-16-2022 HIGH SENSITIVITY CHRISTOPHER 34 ng/L High <12 [facility] Comment on above: Order Comment: Rhina mason Type: BLOOD SPECIMENOrdering Facility: [facility] Address: [address] [place] [address] Result Comment: When assessing risk for acute [...] MACE. Performed By: #### 3 2355-0 #### [facility] CLIA [id number] [address] STATES OF [facility] HIGH SENSITIVITY TROPONIN T (SECOND)on 06-16-2022 HIGH SENSITIVITY CHRISTOPHER 28 ng/L High <12 [facility] Comment on above: Order Comment: Rhina mason Type: BLOOD SPECIMENOrdering Facility: [facility] Address: [address] [place] [address] Result Comment: When assessing risk for acute [...] 30 day MACE. Performed By: #### L [id number] ####[facility] LABORATORYCLIA [id number] [address] [place] HIGH SENSITIVITY TROPONIN T (THIRD) 3 HRS AFTER INITIALon 06-16-2022 HIGH SENSITIVITY CHRISTOPHER 23 ng/L High <12 [facility] Comment on above: Order Comment: Rhina mason Type: BLOOD SPECIMENOrdering Facility: [facility] Address: [address] [place] [address] Result Comment: When assessing risk for acute [...] 30 day MACE. Performed By: #### L [id number] ####[facility] LABORATORYCLIA [id number] [place] [id number] [place] HISTORY PHYSICALon HISTORY PHYSICAL HNO ID: [id number] Author: Kristen Jones APRN.CNP Service: Hospital Medicine Author Type: Nurse Practitioner Type: HANDP Filed: 06/16/2022 1:27 PM Note Text: DEPARTMENT OF HOSPITAL MEDICINE HISTORY AND PHYSICAL EXAM SERVICE DATE: 06/16/2022 SERVICE TIME: 12:02 PM Primary Care Physician: Dr. Evans Admitting Provider: Kristen Jones APRN.CNP NIGHT AND WEEKEND COVERAGE: After 7pm, please call cross cover pager #[phone] Subjective CHIEF COMPLAINT: Left leg pain, discoloration [...] this patient has 2 charts. Mel Garcia [id number] and Mel Castillo [id number]. 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 Magnesium [Mass/Vol] 2.4 mg/dL High 1.7-2.3 [facility] Comment on above: Order Comment: Speci men Type: BLOOD SPECIMENOrdering Facility: [facility] Address: [address] [place] [address] Performed By: #### 3 3959-8, 86701-3, 89412-7, 58324-8 ####[facility] LABORATORYCLIA [id number] [address] OF [facility] NT-proBNP [facility]16 Natriuretic peptide.B prohormone N-Terminal [Mass/Vol] 4156 pg/mL High <450 [facility] Comment on above: Order Comment: Speci men Type: BLOOD SPECIMEN Ordering Facility: [facility] Address: [address] [place] [address] Performed By: #### T SCR #### [facility] CLIA [id number] [address] [place] NURSING PROGon 06-16-2022 NURSING PROG HNO ID: [id number] Author: Kayden José RN Service: Trauma Author [...] Comment: Specrobson mason Type: BLOOD SPECIMENOrdering Facility: [facility] Address: [address] [place], [place] [id number] Result Comment: Mayra min K Antagonist (VKA) [...] Chest 2012, 141:7S-47S Daren RA et al. [facility] 2017, 70: 252-289 Performed By: #### 3 4528-0, 35750-6 ####[facility] LABORATORYCLIA [id number] [address] [place] PT Coag (PPP) [Time] 11.3 s Normal 9.7-13.0 [facility] Comment on above: Order Comment: Rhina mason Type: BLOOD SPECIMENOrdering Facility: [facility] Address: [address] [place] [address] Performed By: #### 3 4528-0, 80304-6 ####[facility] LABORATORYCLIA [id number] [address] [place] Procalcitonin SerPl-mCncon 1 08-16-2021 Procalcitonin [Mass/Vol] 0.19 ng/mL High <0.09 [facility] Comment on above: Order Comment: Speci men Type: BLOOD SPECIMEN Ordering Facility: [facility] Address: [address] [place], [place] [address] [phone] Result Comment: For a guided interpretation of test results, please visit the Change in Procalcitonin Calculator, [email or web address]. Performed By: #### T SCR #### [facility] CLIA [id number] [address] [place] SARS-CoV-2 RNA Resp Ql OXANA+p robeon 06-16-2022 SARS-CoV-2 (COVID-19) RNA OXANA+probe Ql (Resp) COVID 19 RESULT: SARS-CoV-2 (Agent of COVID-19) Detected by RT-PCR or equivalent method. This test has been authorized by FDA under an Emergency Use Authorization (EUA). Normal [facility] Comment on above: Performed By: #### 9 4500-6 #### [facility] CLIA [id number] [address] [place] [address] [place] US DVT LOWER LTon 06-16-2022 US DVT LOWER LT * * *Final Report* * * DATE OF EXAM: Jun 16 2022 5:04AM [facility] 1006 - US DVT LOWER LT [...] Torres MD on 515 via verbal communication. Grants Analyst: DEVEN Transcribe Date/Time: Jun 16 2022 5:07A Dictated by : SKIP NOEL MD This examination was interpreted and the report reviewed and electronically signed by: SKIP NOEL MD on Jun 16 2022 5:17AM EST [id number] Normal [facility] aPTT PPPon 06-16-2022 aPTT Coag (PPP) [Time] 74.2 s High 23.0-32.4 [facility] Comment on above: Order Comment: Specrobson mason Type: BLOOD SPECIMENOrdering Facility: [facility] Address: [address] [address] Performed By: #### 1 4979-9 ####[facility] LABORATORYCLIA [id number] [address] STATES OF [facility] aPTT Coag (PPP) [Time] 134.7 s High 23.0-32.4 [facility] Comment on above: Order Comment: Rhina mason Type: BLOOD SPECIMENOrdering Facility: [facility] Address: [address] [address] Performed By: #### 1 4979-9 ####[facility] LABORATORYCLIA [id number] [address] aPTT Coag (PPP) [Time] s High 23.0-32.4 [facility] Comment on above: Order Comment: Speci isabella Type: BLOOD SPECIMENOrdering Facility: [facility] Address: [address] [address] Performed By: #### 1 4979-9 ####[facility] LABORATORYCLIA [id number] [address] aPTT Coag (PPP) [Time] 21.7 s Low 23.0-32.4 [facility] Comment on above: Order Comment: Speci men Type: BLOOD SPECIMENOrdering Facility: [facility] Address: [address] [place] [address] Performed By: #### 3 4528-0, 88182-6 ####[facility] [id number] [address] CULTURE AND STAIN - TISSUEon 03-10-2020 [...] 0.12 S Rifampin(AGATA) <= 0.5 S Normal [facility] Comment on above: Performed By: #### C XTIS #### [address] [place], [place] [facility] [address] [place], [place] [id number] #### C/DAMIÁN #### [address] [address] [address] [place], [place] CR Finger(s) Min 2 Views Rig hton 03-07-2020 CR Finger(s) Min 2 Views Right Patient Name: MEL POP Diagnostic Radiology Exam Date/Time 03/06/2020 10:30:00 EDT Exam CR Finger(s) Min 2 Views Right Ordering Physician MD GUSTAVO, JAYLA Stoll Accession Number [id number] CPT4 Codes 51513 () Reason For Exam pain Report Right [...] was communicated to JAYLA MCMAHAN via the [employer] Critical Result system on 03/07/2020 8:07 PM EDT, Message ID [id number]. Report Dictated on Final Dictating Physician: MD PERRY DIANE Signed Date and Time: 03/07/2020 8:07 pm Signed by: MD ORLANDO, SHAHLA Transcribed Date and Time: 03/07/2020 8:08 Normal [facility] CULTURE ANAEROBEon 0 CULTURE ANAEROBE CULTURE ANAEROBE --> Status: F No growth of anaerobes at 5 days. STAIN GRAM --> Status: F Few polymorphonuclear cells/lpf. No organisms seen. No organisms seen. Normal [facility] Comment on above: Performed By: #### C XTIS #### [address] [place] [address] [address] [place], [place] [id number] #### C/DAMIÁN #### [address] [place] [address] Vital Signs Date Time Vital Sign Value Performing Clinician Facility 03-15-2025 11:06-0400 Body height 160 cm Andre Berry MD Work Phone: [facility] 03-15-2025 11:06-0400 Body mass index (BMI) [Ratio] 27.1 kg/m2 Andre Berry MD Work Phone: [facility] 03-15-2025 11:06-0400 Body temperature 97.39 [degF] Andre Berry MD Work Phone: [facility] 03-15-2025 11:06-0400 Body weight 69.4 kg Andre Berry MD Work Phone: [facility] Comment on above: unable to stand for ht and wt today 03-15-2025 11:06-0400 Diastolic blood pressure 48 mm[Hg] Andre Berry MD Work Phone: [facility] 03-15-2025 11:06-0400 Heart rate 45 /min Andre Berry MD Work Phone: [facility] 03-15-2025 11:06-0400 SaO2% (BldA) [Mass fraction] 100 % Andre Berry MD Work Phone: [facility] 03-15-2025 11:06-0400 Systolic blood pressure 97 mm[Hg] Andre Berry MD Work Phone: [facility] [email or web address] 12-24-2024 14:45-0400 Body mass index (BMI) [Ratio] 27.1 kg/m2 Kristyn Blankenship MD Work Phone: [facility] [email or web address] 12-24-2024 14:45-0400 Body weight 69.4 kg Kristyn Blankenship MD Work Phone: [facility] [email or web address] 12-05-2024 10:20-0400 Body height 160 cm Kristyn Blankenship MD Work Phone: [facility] [email or web address] 12-05-2024 10:20-0400 Body mass index (BMI) [Ratio] 29.23 kg/m2 Kristyn Blankenship MD Work Phone: [facility] [email or web address] 12-05-2024 10:20-0400 Body weight 74.84 kg Kristyn Blankenship MD Work Phone: [facility] [email or web address] 12-05-2024 10:20-0400 Diastolic blood pressure 78 mm[Hg] Kristyn Blankenship MD Work Phone: [facility] [employer] 12-05-2024 10:20-0400 Heart rate 78 /min Kristyn Blankenship MD Work Phone: [facility] [email or web address] 12-05-2024 10:20-0400 Respiratory rate 18 /min Kristyn Blankenship MD Work Phone: [facility] [email or web address] 12-05-2024 10:20-0400 SaO2% (BldA) [Mass fraction] 94 % Kristyn Blankenship MD Work Phone: [facility] [email or web address] 12-05-2024 10:20-0400 Systolic blood pressure 102 mm[Hg] Kristyn Blankenship MD Work Phone: [facility] [email or web address] 11-22-2024 13:45-0400 Diastolic blood pressure 54 mm[Hg] Kristyn Blankenship MD Work Phone: [facility] [employer] 11-22-2024 13:45-0400 Heart rate 58 /min Kristyn Blankenship MD Work Phone: [facility] [employer] 11-22-2024 13:45-0400 Respiratory rate 18 /min Kristyn Blankenship MD Work Phone: [facility] [email or web address] 11-22-2024 13:45-0400 SaO2% (BldA) [Mass fraction] 95 % Kristyn Blankenship MD Work Phone: [facility] [email or web address] 11-22-2024 13:45-0400 Systolic blood pressure 139 mm[Hg] Kristyn Blankenship MD Work Phone: [facility] [email or web address] 11-22-2024 13:15-0400 Body temperature 97.11 [degF] Kristyn Blankenship MD Work Phone: [facility] [email or web address] 11-22-2024 08:25-0400 Body height 160 cm Kristyn Blankenship MD Work Phone: [facility] [email or web address] 11-22-2024 08:25-0400 Body mass index (BMI) [Ratio] 29.23 kg/m2 Kristyn Blankenship MD Work Phone: [facility] [email or web address] 11-22-2024 08:25-0400 Body weight 74.84 kg Kristyn Blankenship MD Work Phone: [facility] [email or web address] 11-05-2024 15:42-0400 Body height 160 cm Kristyn Blankenship MD Work Phone: [facility] [email or web address] 11-05-2024 15:42-0400 Body mass index (BMI) [Ratio] 29.23 kg/m2 Kristyn Blankenship MD Work Phone: [facility] [email or web address] 11-05-2024 15:42-0400 Body weight 74.84 kg Kristyn Blankenship MD Work Phone: [facility] [email or web address] 11-05-2024 15:42-0400 Diastolic blood pressure 64 mm[Hg] Kristyn Blankenship MD Work Phone: [facility] [employer] 11-05-2024 15:42-0400 Heart rate 65 /min Kristyn Blankenship MD Work Phone: [facility] [email or web address] 11-05-2024 15:42-0400 Respiratory rate 18 /min Kristyn Blankenship MD Work Phone: [facility] [email or web address] 11-05-2024 15:42-0400 SaO2% (BldA) [Mass fraction] 98 % Kristyn Blankenship MD Work Phone: [employer] 11-05-2024 15:42-0400 Systolic blood pressure 122 mm[Hg] Kristyn Blankenship MD Work Phone: [employer] 08-22-2024 10:32-0500 Body height 160 cm Henok Darlyn PA-C Work Phone: [employer] 08-22-2024 10:32-0500 Body mass index (BMI) [Ratio] 29.23 kg/m2 Henok Darlyn PA-C Work Phone: [employer] 08-22-2024 10:32-0500 Body weight 74.84 kg Henok Darlyn PA-C Work Phone: [facility] 08-22-2024 10:32-0500 Diastolic blood pressure 62 mm[Hg] Henok Darlyn PA-C Work Phone: [employer] 08-22-2024 10:32-0500 Respiratory rate 18 /min Henok Darlyn PA-C Work Phone: [employer] [facility] 08-22-2024 10:32-0500 Systolic blood pressure 104 mm[Hg] Henok Darlyn PA-C Work Phone: [employer] 08-16-2024 07:19-0500 Body temperature 97.59 [degF] Mariana King DO Work Phone: [employer] 08-16-2024 07:19-0500 Diastolic blood pressure 66 mm[Hg] Mariana King DO Work Phone: [employer] [facility] 08-16-2024 07:19-0500 Heart rate 85 /min Mariana King DO Work Phone: [employer] [facility] 08-16-2024 07:19-0500 Respiratory rate 18 /min Mariana King DO Work Phone: [employer] 08-16-2024 07:19-0500 SaO2% (BldA) [Mass fraction] 94 % Mariana King DO Work Phone: [employer] 08-16-2024 07:19-0500 Systolic blood pressure 135 mm[Hg] Mariana King DO Work Phone: [employer] 08-03-2024 08:32-0500 Body height 162 cm Mariana King DO Work Phone: [employer] 08-03-2024 08:32-0500 Body mass index (BMI) [Ratio] 28.58 kg/m2 Mariana King DO Work Phone: [employer] 08-03-2024 08:32-0500 Body weight 75 kg Mariana King DO Work Phone: [employer] 07-07-2024 06:03-0500 Body temperature 97.7 [degF] Wm Mudrakola DO Work Phone: [employer] [facility] 07-07-2024 06:03-0500 Diastolic blood pressure 67 mm[Hg] Wm Mudrakola DO Work Phone: [employer] 07-07-2024 06:03-0500 Heart rate 69 /min Wm Mudrakola DO Work Phone: [facility] 07-07-2024 06:03-0500 Respiratory rate 12 /min Wm Mudrakola DO Work Phone: [facility] 07-07-2024 06:03-0500 SaO2% (BldA) [Mass fraction] 94 % Wm Mudrakola DO Work Phone: [facility] 07-07-2024 06:03-0500 Systolic blood pressure 149 mm[Hg] Wm Mudrakola DO Work Phone: [facility] 07-05-2024 10:00-0500 Body height 162.6 cm Wm Mudrakola DO Work Phone: [employer] 07-05-2024 10:00-0500 Body mass index (BMI) [Ratio] 27.46 kg/m2 Wm Mudrakola DO Work Phone: [facility] [email or web address] 07-05-2024 10:00-0500 Body weight 72.58 kg Wm Nunes DO Work Phone: [facility] [email or web address] 05-14-2024 15:34-0400 Body height 162.6 cm Jared Evans MD Work Phone: [facility] [email or web address] 05-14-2024 15:34-0400 Body mass index (BMI) [Ratio] 25.23 kg/m2 Jared Evans MD Work Phone: [facility] [email or web address] 05-14-2024 15:34-0400 Body weight 66.68 kg Jared Evans MD Work Phone: [facility] [email or web address] 04-25-2024 13:39-0400 Body height 162.6 cm Henok Hernandez PA-C Work Phone: [facility] [email or web address] 04-25-2024 13:39-0400 Body mass index (BMI) [Ratio] 25.23 kg/m2 Henok Hernandez PA-C Work Phone: [facility] [email or web address] 04-25-2024 13:39-0400 Body weight 66.68 kg Henok Mary PA-C Work Phone: [facility] [email or web address] 04-25-2024 13:39-0400 Diastolic blood pressure 66 mm[Hg] Henok Hernandez PA-C Work Phone: [facility] [email or web address] 04-25-2024 13:39-0400 Heart rate 98 /min Henok Hernandez PA-C Work Phone: [facility] [email or web address] 04-25-2024 13:39-0400 Respiratory rate 18 /min Henok Hernandez PA-C Work Phone: [facility] [email or web address] 04-25-2024 13:39-0400 SaO2% (BldA) [Mass fraction] 95 % Henok Hernandez PA-C Work Phone: [facility] [email or web address] 04-25-2024 13:39-0400 Systolic blood pressure 110 mm[Hg] Henok Hernandez PA-C Work Phone: [employer] 04-13-2024 08:04-0400 Heart rate 92 /min Winifred Cornell DO Work Phone: [facility] 04-13-2024 07:49-0400 Body temperature 97.2 [degF] Winifred Cornell DO Work Phone: [facility] 04-13-2024 07:49-0400 Diastolic blood pressure 89 mm[Hg] Winifred Cornell DO Work Phone: [facility] 04-13-2024 07:49-0400 Respiratory rate 20 /min Winifred Cornell DO Work Phone: [facility] 04-13-2024 07:49-0400 SaO2% (BldA) [Mass fraction] 98 % Winifred Cornell DO Work Phone: [facility] 04-13-2024 07:49-0400 Systolic blood pressure 156 mm[Hg] Winifred Cornell DO Work Phone: [employer] 04-03-2024 17:52-0400 Body height 162.6 cm Winifred Cornell DO Work Phone: [facility] 04-03-2024 17:52-0400 Body mass index (BMI) [Ratio] 27.38 kg/m2 Winifred Cornell DO Work Phone: [facility] 04-03-2024 17:52-0400 Body weight 72.35 kg Winifred Cornell DO Work Phone: [facility] 07-27-2023 14:23-0500 Body height 162.6 cm Ming Weinberg MD Work Phone: [facility] 07-27-2023 14:23-0500 Body mass index (BMI) [Ratio] 27.29 kg/m2 Ming Weinberg MD Work Phone: [facility] 07-27-2023 14:23-0500 Body weight 72.12 kg Ming Weinberg MD Work Phone: [email or web address] 05-14-2022 15:01-0400 Diastolic blood pressure 84 mm[Hg] Jared Slabaugh PA-C Work Phone: [facility] 05-14-2022 15:01-0400 Systolic blood pressure 154 mm[Hg] Jaredserina Carlingh PA-C Work Phone: [facility] 05-14-2022 14:32-0400 Body height 162.6 cm Jared Velazquez PA-C Work Phone: [facility] 05-14-2022 14:32-0400 Body weight 72.58 kg Jared Velazquez PA-C Work Phone: [facility] 05-14-2022 14:32-0400 Heart rate 71 /min Jared Velazquez PA-C Work Phone: [facility] 05-14-2022 14:32-0400 Respiratory rate 16 /min Jared Velazquez PA-C Work Phone: [facility] 05-14-2022 14:32-0400 SaO2% (BldA) [Mass fraction] 98 % Jared Velazquez PA-C Work Phone: [facility] 03-07-2020 09:57-0400 Body Temperature 98.71 [degF] [facility] [place] , [place] 03-07-2020 09:57-0400 BP Diastolic 64 mm[Hg] [facility] [place] 03-07-2020 09:57-0400 BP Systolic 161 mm[Hg] [facility] [place] 03-07-2020 09:57-0400 Pulse (Heart Rate) 77 /[facility] [place] 03-07-2020 09:57-0400 Pulse Oximetry 96 % [facility] [place] , [place] 03-07-2020 08:32-0400 Respiratory Rate 14 /min [facility] , [place] 02-08-2020 20:50-0400 Body Temperature 97.5 [degF] Maryuri [facility] , [place] 02-08-2020 20:50-0400 BP Diastolic 81 mm[Hg] [facility] [place] 02-08-2020 20:50-0400 BP Systolic 193 mm[Hg] [facility] [place] 02-08-2020 20:50-0400 Pulse (Heart Rate) 68 /min Maryuri Mcfadden [facility], [place] 02-08-2020 20:50-0400 Pulse Oximetry 97 % [facility] Knig [facility] , [place] 02-08-2020 20:50-0400 Respiratory Rate 16 /min [facility] King [facility] [place] Encounters Encounter Date Encounter Type Care Provider Facility Start: 05-27-2025 ambulatory Megan EVERETT Faci lity:[facility] Start: 05-13-2025 ambulatory Megan EVERETT Faci lity:[facility] Start: 05-09-2025 ambulatory Megan EVERETT Faci lity:[facility] Start: 05-06-2025 ambulatory Megan EVERETT Faci lity:[facility] Start: 04-29-2025 End: 04-29-2025 ambulatory Megan EVERETT Facility:[facility] Start: 04-04-2025 End: 04-04-2025 ambulatory Megan EVERETT Facility:[facility] Start: 04-02-2025 ambulatory Megan EVERETT Faci lity:[facility] Start: 03-28-2025 End: 03-28-2025 ambulatory Megan EVERETT Facility:[facility] Start: 03-15-2025 End: 03-15-2025 Office outpatient visit 25 minutes Andre Patel MD Work Phone: [facility] [place] Comment on above: Acute deep vein thro mbosis (DVT) of proximal vein of lower extremity, unspecified laterality (HCC) (Primary Dx) Start: 03-15-2025 End: 03-15-2025 ambulatory MEGNA MONTOYA [facility] Start: 03-04-2025 End: 03-04-2025 ambulatory Megan EVERETT Facility:[facility] Start: 02-25-2025 ambulatory Megan EVERETT Faci lity:[facility] Start: 02-18-2025 ambulatory Megan EVERETT Faci lity:[facility] Start: 02-15-2025 ambulatory Megan Luanneros OLS Faci lity:[facility] Start: 02-11-2025 End: 02-11-2025 ambulatory Megan Luannesaros OLS Facility:[facility] Start: 02-07-2025 End: 02-07-2025 ambulatory Megan Luannesaros OLS Facility:[facility] Start: 02-04-2025 ambulatory Megan Luannesaros OLS Faci lity:[facility] Start: 01-31-2025 ambulatory Megan Luannesaros OLS Faci lity:[facility] Start: 01-28-2025 ambulatory Megan Luannesaros OLS Faci lity:[facility] Start: 01-25-2025 ambulatory Megan Katsaros OLS Faci lity:[facility] Start: 01-22-2025 End: 01-23-2025 ambulatory Megan Luannesaros OLS Facility:[facility] Start: 01-21-2025 End: 01-21-2025 ambulatory Megan Luannesaros OLS Facility:[facility] Start: 01-17-2025 End: 01-17-2025 ambulatory Megan Luannesaros OLS Facility:[facility] Start: 01-16-2025 End: 01-16-2025 ambulatory Megan Luannesaros OLS Facility:[facility] Start: 01-15-2025 End: 01-15-2025 ambulatory Megan Luannesaros OLS Facility:[facility] Start: 01-07-2025 ambulatory Megan Luannesaros OLS Faci lity:[facility] Start: 01-02-2025 End: 01-02-2025 Orders Only Namrata Christensen [facility] Comment on above: 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) Right retinal detach ment (Primary Dx); Hemorrhagic choroidal detachment of right eye; Pseudophakia, right eye Start: 12-24-2024 End: 12-24-2024 ambulatory MEGAN MONTOYA [facility] Start: 12-24-2024 End: 12-24-2024 Office outpatient visit 15 minutes Kristyn Blankenship MD Work Phone: [facility] [place] Comment on above: Aftercare following surgery of the circulatory system (Primary Dx); PAD (peripheral artery disease) (HCC) Start: 12-13-2024 End: 02-12-2025 Follow-up encounter Shivani Kunz SEBASTIAN Rayo CNP Work Phone: [facility] [place] Comment on above: Vascular US lower ex tremity arterial duplex right with MICHELLE Start: 12-13-2024 End: 12-13-2024 ambulatory MEGAN PARKSFOZIA [facility] Start: 12-13-2024 End: 12-13-2024 Subsequent hospital visit by physician Kristyn Blankenship MD Work Phone: [facility] Comment on above: Skin ulcer of toe of right foot, limited to breakdown of skin (HCC); PAD (peripheral artery disease) (HCC); Aftercare following surgery of the circulatory system Start: 12-05-2024 End: 12-05-2024 [facility] Start: 12-05-2024 End: 12-05-2024 Office outpatient visit 10 minutes Kristyn Blankenship MD Work Phone: [facility] [place] Comment on above: Skin ulcer of toe of right foot, limited to breakdown of skin (HCC) (Primary Dx); PAD (peripheral artery disease) (HCC); Aftercare following surgery of the circulatory system Start: 11-22-2024 End: 11-22-2024 ambulatory [facility] Start: 11-22-2024 End: 11-22-2024 Subsequent hospital visit by physician Kristyn Blankenship MD Work Phone: [facility] Start: 11-15-2024 End: 11-15-2024 ambulatory Megan Montoya [facility] Facility:[facility] Start: 11-09-2024 End: 11-13-2024 ambulatory Henok ARIZMENDI-[facility] Work Phone: [facility] [place] Comment on above: 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) (Primary Dx) Pre-op evaluation (P rimary Dx) Start: 11-09-2024 End: 11-13-2024 Preprocedural examination done Henok [facility]ZMENDI-C [facility] Start: 11-05-2024 End: 11-05-2024 ambulatory JARED EVANS [facility] Start: 11-05-2024 End: 11-05-2024 Office outpatient visit 25 minutes Kristyn Blankenship MD Work Phone: [facility] [place] Comment on above: PAD (peripheral aidee ry disease) (HCC) (Primary Dx); Skin ulcer of toe of right foot, limited to breakdown of skin (HCC) Start: 10-08-2024 End: 10-08-2024 ambulatory Megan EVERETT [facility] Work Phone: Start: 10-08-2024 End: 10-08-2024 Departed Referred Megan BISWAS Start: 10-08-2024 Registered Referred Megan BISWAS Start: 10-08-2024 End: 10-08-2024 ambulatory Megan EVERETT Facility:[facility] Start: 10-01-2024 End: 10-01-2024 Patient encounter procedure Savana Lopez MD Work Phone: Ophthalmology Comment on above: 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); Right retinal detachment; Postoperative eye state; Pseudophakia, right eye; Subluxation of right lens Start: 10-01-2024 End: 10-01-2024 ambulatory SAVANA LOPEZ Facility:[facility] Start: 09-17-2024 End: 09-17-2024 ambulatory Megan EVERETT [facility] Work Phone: Start: 09-17-2024 End: 09-17-2024 Departed Referred Megan BISWAS Start: 09-17-2024 Registered Referred Mgean BISWAS Start: 09-17-2024 End: 09-17-2024 ambulatory Megan EVERETT Facility:[facility] Start: 09-10-2024 End: 09-10-2024 ambulatory Megan EVERETT [facility] Work Phone: Start: 09-10-2024 End: 09-10-2024 Departed Referred Megan BISWAS Start: 09-10-2024 Registered Referred Megan BISWAS Start: 09-10-2024 End: 09-10-2024 ambulatory Megan EVERETT Facility:[facility] Start: 09-05-2024 End: 09-05-2024 ambulatory SAVANA LOPEZ Facility:[facility] Start: 09-05-2024 End: 09-05-2024 Patient encounter procedure Savana Lopez MD Work Phone: Ophthalmology Comment on above: Postoperative eye st ate; Hemorrhagic choroidal detachment of right eye; Pseudophakia, right eye; Subluxation of right lens Start: 09-03-2024 End: 09-03-2024 ambulatory Megan EVERETT [facility] Work Phone: Start: 09-03-2024 End: 09-03-2024 Departed Referred Megan BISWAS Start: 09-03-2024 Registered Referred Megan BISWAS Start: 09-03-2024 End: 09-03-2024 ambulatory Megan EVERETT Facility:[facility] Start: 08-22-2024 End: 08-22-2024 ambulatory [facility] Start: 08-22-2024 End: 08-22-2024 Office outpatient visit 15 minutes Henok Lantigua PA-C Work Phone: [facility] [place] Comment on above: Acute deep vein thro mbosis (DVT) of iliac vein of right lower extremity (HCC) (Primary Dx); PAD (peripheral artery disease) (HCC) Start: 08-20-2024 End: 08-20-2024 ambulatory Megan EVERETT [facility] Work Phone: Start: 08-20-2024 End: 08-20-2024 Departed Referred Megan Luannevictoriano [facility] Start: 08-20-2024 End: 08-20-2024 ambulatory Megan EVERETT Facility:[facility] Start: 08-03-2024 End: 08-03-2024 Subsequent hospital visit by physician [facility] Exam Room [address] [facility] [address] Comment on above: Arrived Start: 08-03-2024 End: 08-16-2024 ambulatory [facility] Start: 08-03-2024 End: 08-16-2024 Emergency department patient visit Mariana King DO Work Phone: [facility] Comment on above: Aspiration pneumonit is (CMS/HCC) (HCC) (Primary Dx); Vomiting and diarrhea; LORENZA (acute kidney injury) (HCC) Start: 08-01-2024 End: 08-01-2024 ambulatory SAVANA A MAMMO Facility:[facility] Start: 08-01-2024 End: 08-01-2024 Patient encounter [...] Start: 07-27-2024 ambulatory SAVANA A MAMMO Facility: [facility] Start: 07-23-2024 End: 07-23-2024 ambulatory SAVANA A MAMMO Facility:[facility] Start: 07-23-2024 End: 07-23-2024 Patient encounter [...] 07-12-2024 Evaluation and management of inpatient SELF Facility:[facility] Start: 07-12-2024 End: 07-12-2024 Orders Only [...] 07-09-2024 Evaluation and management of inpatient SELF Facility:[facility] Start: 07-09-2024 End: 07-09-2024 Unlisted evaluation [...] Evaluation and management of inpatient RED GRESHAMNTIRE Facility:[facility] Start: 07-07-2024 Emergency department patient visit PROVIDER NOT IN SYSTEM Facility:[facility] Start: 07-06-2024 End: 07-06-2024 Telephone encounter Ryan Elizondo MD Work Phone: Ophthalmology Start: 07-05-2024 End: 07-07-2024 ambulatory RED HENDERSON [facility] Start: 07-05-2024 End: 07-07-2024 Emergency department patient visit Wm Nunes DO Work Phone: [facility] Tra[facility] Neuro Progressive [facility] Unit PCU 3W Comment on above: Vision loss of right eye (Primary Dx); Acute intractable headache, unspecified headache type; Visual disturbance, subjective Start: 06-19-2024 End: 07-03-2024 ambulatory DEVIKA LEUNG Facility:[facility] Start: 06-19-2024 End: 07-03-2024 Subsequent hospital visit by physician Devika Leung DO Work Phone: [facility] Comment on above: [I63.9] - Cerebral i nfarction Start: 06-10-2024 End: 06-19-2024 Evaluation and management of inpatient TORSTEN SILVA Facility:[facility] Start: 05-22-2024 End: 05-22-2024 ambulatory [facility] Start: 05-21-2024 End: 05-21-2024 ambulatory HARMONY [facility] Start: 05-21-2024 End: 05-21-2024 Anticoagulant drug monitoring Harmony [facility] Work Phone: [facility] Comment on above: Atrial fibrillation, unspecified type (HCC); Acute venous embolism and thrombosis of deep vessels of proximal end of right lower extremity (HCC) Start: 05-14-2024 End: 05-14-2024 Subsequent hospital visit by physician Jared Evans MD Work Phone: [facility] Comment on above: Paroxysmal atrial fi brillation (HCC) Start: 05-14-2024 End: 05-14-2024 ambulatory [facility] Start: 05-09-2024 End: 05-09-2024 ambulatory [facility] Start: 05-09-2024 End: 05-09-2024 Anticoagulant drug monitoring Patty Duggan [facility] Work Phone: [facility] Comment on above: Atrial fibrillation, unspecified type (HCC); Acute venous embolism and thrombosis of deep vessels of proximal end of right lower extremity (HCC) Start: 05-01-2024 End: 05-01-2024 ambulatory [facility] Start: 05-01-2024 End: 05-01-2024 Anticoagulant drug monitoring Won Tipton RN [facility] Comment on above: Atrial fibrillation, unspecified type (HCC); Acute venous embolism and thrombosis of deep vessels of proximal end of right lower extremity (HCC) Start: 04-27-2024 End: 04-27-2024 Refill Phyllis Aguilera RN Work Phone: [facility] Comment on above: Deep vein thrombosis (DVT) of lower extremity, unspecified chronicity, unspecified laterality, unspecified vein (HCC); Atrial fibrillation, unspecified type (HCC); Acute venous embolism and thrombosis of deep vessels of proximal end of right lower extremity (HCC) Start: 04-25-2024 End: 04-25-2024 Office outpatient visit 15 minutes Henok Hernandez PA-C Work Phone: [facility] [place] Comment on above: Acute deep vein thro mbosis (DVT) of iliac vein of right lower extremity (HCC) (Primary Dx); PAD (peripheral artery disease) (HCC) Start: 04-25-2024 End: 04-25-2024 ambulatory [facility] Start: 04-23-2024 End: 04-23-2024 ambulatory [facility] Start: 04-20-2024 End: 07-20-2024 Transcribe Orders Jared Evans MD Work Phone: [facility] Central Scheduling Comment on above: Paroxysmal atrial fi brillation (HCC) (Primary Dx) Start: 04-19-2024 End: 04-19-2024 ambulatory [facility] Start: 04-19-2024 End: 04-19-2024 Anticoagulant drug monitoring Marybeth Rahman [facility] Comment on above: Atrial fibrillation, unspecified type (HCC); Acute venous embolism and thrombosis of deep vessels of proximal end of right lower extremity (HCC) Start: 04-16-2024 End: 04-16-2024 ambulatory ANTHONY YEE [facility] Start: 04-14-2024 End: 04-14-2024 Anticoagulant drug monitoring Ulices Orr PharmD [facility] Comment on above: Deep vein thrombosis (DVT) of lower extremity, unspecified chronicity, unspecified laterality, unspecified vein (HCC) (Primary Dx) Start: 04-03-2024 End: 04-13-2024 Evaluation and management of inpatient Winifred Cornell DO Work Phone: [facility] Medical Unit 4N Comment on above: Ischemic leg (Primar y Dx); Right leg pain; Peripheral arterial disease (HCC); Right leg weakness; Atrial fibrillation, unspecified type (HCC) Start: 07-27-2023 End: 07-27-2023 Office outpatient new 30 minutes Ming Weinberg MD Work Phone: [facility] Comment on above: 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) Start: 06-15-2023 End: 06-15-2023 Subsequent hospital visit by physician Jared Evans MD Work Phone: [facility] MRI Comment on above: Abnormal findings on diagnostic imaging of other specified body structures; Pain in left leg Start: 06-01-2023 Transcribe Orders Jared Evans MD [facility] Comment on above: Abnormal findings on diagnostic imaging of other specified body structures (Primary Dx); Pain in left leg Start: 05-24-2023 End: 05-24-2023 Subsequent hospital visit by physician Jared Evans MD Work Phone: [facility] US Comment on above: Other specified soft tissue disorders Start: 05-23-2023 Transcribe Orders Jared Evans MD Work [facility]uling Comment on above: Other specified soft tissue disorders (Primary Dx) Start: 03-08-2023 End: 03-08-2023 Subsequent hospital visit by physician Jared Evans MD Work Phone: [facility] Comment on above: Localized swelling, mass and lump, neck Start: 02-28-2023 Transcribe Orders Jared Evans MD Work Phone: [facility] Scheduling Comment on above: Localized swelling, mass and lump, neck (Primary Dx) Start: 02-22-2023 End: 02-22-2023 Subsequent hospital visit by physician Jared Evans MD Work Phone: [facility] US Comment on above: Localized swelling, mass and lump, neck Start: 02-17-2023 Transcribe Orders Jared Evans MD Work Phone: [facility] Scheduling Comment on above: Localized swelling, mass and lump, neck (Primary Dx) Start: 07-06-2022 Telephone encounter Roisin Tubbs RN NOC Comment on above: Follow Up Phone Call (All Clear) Start: 06-21-2022 End: 06-21-2022 Evaluation and management of inpatient SIM ELIZABETH Facility:[facility] Start: 06-19-2022 ambulatory Tamara THOMPSON [place] 41 00 CARD/HF/PD Start: 06-16-2022 End: 06-29-2022 Evaluation and management of inpatient BERNIE BIRD Facility:[facility] Start: 05-27-2022 Telephone encounter Jared pennington [...] 02-08-2020 Emergency department patient visit Maryuri King [facility] ED Comment on above: Felon of [...] gi pth gn multiplex probe tq 12-25 Hsivani Dimas PA-C Work Phone: Start: 08-03-2024 Basic [...] on above: Performed By: #### L [id number] ####Drapery Counselor: VELMA VALADEZ ([phone])[facility] ([facility])[address] [place] [address] Start: 04-06-2024 Blood typing serologic abo Kristyn Blankenship MD Work Phone: Start: 04-06-2024 End: 04-06-2024 Prq transluminal mechanical thrombectomy vein Kristyn Blankenship MD Work Phone: Start: 04-06-2024 Basic metabolic pane l calcium total Robret Vigil MD Work Phone: Start: 04-05-2024 Prothrombin [...] abdl aorta&bi il iofem w/contrast&postp Bernie Patrizia [employer]LL TENDER - STORES CLERK Work Phone: Start: 04-03-2024 Ct head/brain w/o co ntrast material Bernie Patrizia [employer] R[employer]LL TENDER - STORES CLERK Work Phone: Start: 04-03-2024 Comprehensive metabo lic panel Bernie Patrizia [employer] R[employer]LL TENDER - STORES CLERK Work Phone: Start: 04-03-2024 Ecg routine ecg w/le ast 12 lds trcg only w/o i&r Bernie Patrizia [employer] R[employer]LL TENDER - STORES CLERK Work Phone: Start: 06-15-2023 Mri lower extrem oth /thn jt w/o & w/contr matr Jared Evans MD Work Phone: Start: 05-24-2023 Dup-scan xtr veins unilateral/limited study Jared Evans MD Work Phone: Start: 06-21-2022 Antibody screen BERNIE BIRD Comment on above: Order Comment: Speci men Type: BLOOD SPECIMEN Ordering Facility: [facility] Address: [address] [place], [place] [id number] Performed By: #### T SCR #### [facility] CLIA [id number] 1 [place] [address] [place] Start: 03-07-2020 OPERATIVE REPORT 3m Sca nning Start: 02-08-2020 INCISION AND DRAINAGE R mona Mora Work Phone: Plan of Treatment Date Care Activity Detail Author Start: 02-15-2029 DTaP/Tdap/Td vaccine (2 - Td) DTaP/Tdap/Td vaccine (2 - Td) [place] Start: 02-15-2029 DTaP/Tdap/Td Vaccines (2 - Td or Tdap) DTaP/Tdap/Td Vaccines (2 - Td or Tdap) [facility] Start: 02-15-2029 Urine microalbumin profile DTaP,Tdap,Td Vaccine (2 - Td or Tdap) [facility] Start: 08-05-2027 Diabetes Screening Diabetes Screening [facility] Start: 07-07-2027 Diabetes Screening Diabetes Screening [facility] Start: 07-06-2027 Diabetes Screening Diabetes Screening [facility] Start: 06-21-2027 Diabetes Screening Diabetes Screening [facility] Start: 08-16-2025 End: 01-23-2026 OCT MACULA [...] Estimated Glomerular Filtration Rate for Kidney Health [facility] Start: 08-04-2025 Diabetes: Estimated Glomerular Filtration Rate for Kidney Health Diabetes: Estimated Glomerular Filtration Rate for Kidney Health [facility] Start: 07-31-2025 End: 01-07-2026 Right eye [...] Estimated Glomerular Filtration Rate for Kidney Health [facility] Start: 06-24-2025 DIABETES SCREEN DIABETES SCREEN [facility] Start: 06-10-2025 Thyroid stimulating hormone measurement TSH Level [facility] Start: 05-18-2025 DIABETES SCREEN DIABETES SCREEN [facility] Start: 03-18-2025 Influenza vaccination [facility] Start: 03-15-2025 End: 03-15-2025 Patient encounter procedure 03/15/2025 11:15 AM EDT Office Visit [facility] [address] [place] [phone] Andre Patel MD [address] [place] [address] [facility] Start: 01-02-2025 End: 01-02-2025 Patient encounter procedure 01/02/2025 9:45 AM EDT Office Visit [facility] [address] [place] [address] Savana Lopez MD [address] [place] [address] *3 M, DFE Ophthalmology Comment on above: *3 M, DFE Start: 12-24-2024 End: 12-24-2024 Patient encounter procedure 12/24/2024 2:30 PM EDT Office Visit [facility] [address] [place] [address] Kristyn Blankenship MD [address] [place], [place] [phone] [facility] Start: 12-05-2024 End: 12-05-2024 Patient encounter procedure 12/05/2024 10:00 AM EDT Office Visit [facility] [address] [place] [address] Kristyn Blankenship MD [address] [place] [address] [facility] Start: 11-22-2024 End: 11-22-2024 Admission to same day surgery center 11/22/2024 9:30 AM EDT - 11/22/2024 11:30 AM EDT Surgery [facility] MAIN OR [address] [place] [phone] Kristyn Blankenship MD [address] [place] [address] AORTOILIAC ANGIOGRAPHY, RIGHT LOWER EXTREMITY ANGIOGRAPHY WITH RUNOFF, POSSIBLE SUPERFICIAL FEMORAL ARTERY/POPLITEAL/TIBIAL ANGIOPLASTY/STENTING [71144 (CPT )] [facility] MAIN OR Comment on above: AORTOILIAC ANGIOGRAPHY, RIGHT LOWER EXTR EMITY ANGIOGRAPHY WITH RUNOFF, POSSIBLE SUPERFICIAL FEMORAL ARTERY/POPLITEAL/TIBIAL ANGIOPLASTY/STENTING [63243 (CPT )] Start: 11-22-2024 End: 11-22-2024 Angiography extremity unilateral rs&i ANGIOGRAM, EXTREMITY Skin ulcer of right great toe (HCC) Critical limb ischemia of right lower extremity (HCC) 11/22/2024 9:30 AM EDT [facility] Operating Room Start: 11-22-2024 Subsequent hospital visit by physician 11/22/2024 9:30 AM EDT Hospital Encounter [facility] [address] [facility] [place] [address] Kristyn Blankenship MD [address] [place] [address] [facility] OR Start: 11-20-2024 Subsequent hospital visit by physician 11/20/2024 Hospital Encounter [facility] [address] [place] [address] Kristyn Blankenship MD [address] [place] [address] [facility] OR Start: 11-13-2024 End: 11-13-2025 Basic metabolic 1998 panel - Serum or Plasma Basic metabolic panel Lab Routine Pre-op evaluation Expected: 11/13/2024 (Approximate), Expires: 11/13/2025 [facility] Comment on above: Expected: 11/13/2024 (Approximate), Expi res: 11/13/2025 Start: 11-13-2024 End: 11-13-2025 CBC W Auto Differential panel - Blood CBC auto differential Lab Routine Pre-op evaluation Expected: 11/13/2024 (Approximate), Expires: 11/13/2025 [facility] [email or web address] Work Phone: Comment on above: Expected: 11/13/2024 (Approximate), Expi res: 11/13/2025 Start: 10-01-2024 End: 10-01-2024 Patient encounter procedure 10/01/2024 10:30 AM EDT Office Visit [facility] [address] [address] Savana Lopez MD [address] [place] [address] 26 Day F/U ~ DFE OD bscan OD . Ophthalmology Comment on above: 26 Day F/U ~ DFE OD bscan OD . Start: 08-22-2024 End: 08-22-2024 Patient encounter procedure 08/22/2024 10:30 AM EST Office Visit [facility] [address] [place] [phone] Henok Lantigua PA-C [address] [place] [phone] [facility] Start: 08-15-2024 End: 08-15-2024 Patient encounter procedure 08/15/2024 9:45 AM EST Office Visit [facility] [address] [place] [address] Savana Lopez MD [address] [place] [address] *1 month post op Ophthalmology Comment on above: *1 month post op Start: 08-06-2024 End: 08-06-2024 Patient encounter procedure 08/06/2024 11:00 AM EST Office Visit [facility] [address] [place] [address] Henok Lantigua PA-C [address] [place] [address] [facility] Start: 08-01-2024 End: 08-01-2024 Patient encounter procedure Ophthalmology Comment on above: *1 week post op Start: 07-31-2024 End: 07-31-2024 Patient encounter procedure [facility] Start: 07-27-2024 End: 07-27-2024 Admission to same day surgery center 07/27/2024 10:50 AM EST - 07/27/2024 12:40 PM EST Surgery Ophthalmology [address] [address] Savana Lopez MD [address] [place] [address] VITRECTOMY 25G [facility] PARS PLANA APPROACH W/ REMOVAL OF PRERETINAL CELLULAR MEMBRANE Ophthalmology Comment on above: VITRECTOMY 25G [facility] PARS PLANA APPROACH W/ REMOVAL OF PRERETINAL CELLULAR MEMBRANE Start: 07-27-2024 End: 07-27-2024 Aspiration/release vitreous subretinal/choroidal RELEASE OF VITREOUS, CHOROIDAL FLUID, PARS PLANA APPROACH Hemorrhagic choroidal detachment of right eye 07/27/2024 10:50 AM EST [facility] Start: 07-27-2024 Subsequent hospital visit by physician 07/27/2024 10:50 AM EST Hospital Encounter Ophthalmology [address] [address] Savana Lopez MD [address] [place] [address] 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] Ophthalmology Comment on above: Hemorrhagic choroidal detachment of righ t eye [H31.411] Start: 07-27-2024 End: 07-27-2024 Vitrectomy pars plana remove preretinal membrane VITRECTOMY 25G [facility] PARS PLANA APPROACH W/ REMOVAL OF PRERETINAL CELLULAR MEMBRANE Hemorrhagic choroidal detachment of right eye 07/27/2024 10:50 AM EST [facility] Start: 07-23-2024 End: 07-23-2024 Patient encounter procedure 07/23/2024 10:45 AM EST Office Visit [facility] [address] [address] Savana Lopez MD [address] [place] [address] *1 W, DFE OD/BSCAN OD/OPTOS OD Ophthalmology Comment on above: *1 W, DFE OD/BSCAN OD/OPTOS OD Start: 07-18-2024 Advance Directive Discussion Advance Directive Discussion [facility] Start: 07-18-2024 Medicare Advantage Annual Wellness Visit Medicare Advantage Annual Wellness Visit [facility] [email or web address] Start: 07-16-2024 End: 07-16-2024 Patient encounter procedure [...] 07/13/2024 3:24 PM EST Surgery Ophthalmology [address] [address] Savana Lopez MD [address] [place] [address] ASPIRATION VITREOUS, CHOROIDAL FLUID, PARS PLANA APPROACH Ophthalmology Comment on above: ASPIRATION VITREOUS, CHOROIDAL FLUID, PA RS PLANA APPROACH Start: 06-04-2024 End: 05-21-2025 POCT Prothrombin Time INR ([facility]) POCT Prothrombin Time INR ([facility]) Lab Routine Atrial fibrillation, unspecified type (HCC) Acute venous embolism and thrombosis of deep vessels of proximal end of right lower extremity (HCC) Expected: 06/04/2024, Expires: 05/21/2025 [facility] [email or web address] Work Phone: Comment on above: Expected: 06/04/2024, Expires: Start: 06-04-2024 End: 06-04-2024 Anticoagulant drug monitoring 06/04/2024 1:15 AM EST Anticoagulation - Warfarin Visit [facility]tico[facility] Management Service [address] [place] [phone] [facility] Start: 05-22-2024 End: 05-22-2024 Patient encounter procedure 05/22/2024 3:00 PM EST [facility] [address] [facility] [address] [place] [phone] Hermila Padilla MD [address] [facility] [address] [place], [place] [phone] [facility] Start: 05-22-2024 End: 05-22-2024 Anticoagulant drug monitoring 05/22/2024 12:45 AM EST Anticoagulation - Warfarin Visit [facility] Management Service [address] [facility] [address] [place] [address] [facility] Start: 05-14-2024 End: 05-14-2024 Patient encounter procedure 05/14/2024 2:00 PM EDT Appoint[address] [facility] [address] [place] [phone] [facility] Start: 05-08-2024 End: 05-01-2025 POCT Prothrombin Time INR ([facility]) POCT Prothrombin Time INR ([facility]) Lab Routine Atrial fibrillation, unspecified type (HCC) Acute venous embolism and thrombosis of deep vessels of proximal end of right lower extremity (HCC) Expected: 05/08/2024 (Approximate), Expires: 05/01/[address] [facility] Work Phone: Comment on above: Expected: 05/08/2024 (Approximate), Expi res: 05/01/2025 Start: 05-08-2024 End: 05-08-2024 Anticoagulant drug monitoring 05/08/2024 1:30 AM EDT Anticoagulation - Other Visit [facility] [address] [place] [phone] [facility] Start: 05-01-2024 End: 05-01-2024 Anticoagulant drug monitoring 05/01/2024 Anticoagulation - Warfarin Visit [facility] [address] [place] [address] [facility] Start: 04-23-2024 End: 04-19-2025 POCT Prothrombin Time INR ([facility]) POCT Prothrombin Time INR ([facility]) Lab Routine Atrial fibrillation, unspecified type (HCC) Acute venous embolism and thrombosis of deep vessels of proximal end of right lower extremity (HCC) Expected: 04/23/2024 (Approximate), Expires: 04/19/2025 [employer] Work Phone: Comment on above: Expected: 04/23/2024 (Approximate), Expi res: 04/19/2025 Start: 04-23-2024 End: 04-23-2024 Patient encounter procedure 04/23/2024 9:15 AM EDT Office Visit [facility] [address] [place] [phone] Henok Hernandez PA-C [address] [place], [place] [phone] [facility] Start: 04-23-2024 End: 04-23-2024 Anticoagulant drug monitoring 04/23/2024 1:15 AM EDT [facility] [address] [place] [phone] [facility] Start: 04-19-2024 End: 04-19-2024 Anticoagulant drug monitoring 04/19/2024 1:00 AM EDT [facility]tico[facility] [address] [place] [phone] [facility] Start: 04-16-2024 End: 04-16-2025 POCT Prothrombin Time INR ([facility]) POCT Prothrombin Time INR ([facility]) Lab Routine Deep vein thrombosis (DVT) of lower extremity, unspecified chronicity, unspecified laterality, unspecified vein (HCC) Expected: 04/16/2024, Expires: 04/16/2025 [facility] Work Phone: Comment on above: Expected: 04/16/2024, Expires: Start: 03-18-2024 Covid-19 Vaccine ( season) Covid-19 Vaccine () [facility] Start: 03-18-2024 Influenza vaccination Influenza Vaccine (#1) [facility] Start: 07-18-2023 Advance Directive Discussion Advance Directive Discussion [facility] Start: 07-18-2023 Medicare Advantage Annual Wellness Visit Medicare [facility] Annual Wellness Visit [facility] Start: 03-18-2023 Influenza vaccination Influenza Vaccine (#1) [facility] Start: 03-18-2022 Influenza vaccination INFLUENZA (#1) [facility] Start: 07-18-2021 ADVANCE DIRECTIVE DISCUSSION ADVANCE DIRECTIVE DISCUSSION [facility] Start: 07-18-2021 DEPRESSION ASSESSMENT DEPRESSION ASSESSMENT [facility] Start: 03-18-2020 Influenza vaccination Flu vaccine (#1) [place] Start: 03-13-2020 End: 03-13-2020 Office Visit 03/13/2020 Office Visit Orthopedic Surgery Jayla Mcmahan MD [address] [facility] [address] [place] [address] [phone] [facility] [place] Start: 03-07-2020 Hospital Encounter 03/07/2020 Hospital Encounter IP Unit Jayla Mcmahan MD [address] [facility] [address] [place] [address] [phone] [facility] Serrato Dept Start: 03-06-2020 Annual Wellness Visit (AWV) Annual Wellness Visit (AWV) [place] Start: 04-12-2019 Pneumococcal Vaccine: 50+ Years (2 of 2 - PPSV23) Pneumococcal Vaccine: 50+ Years (2 of 2 - PPSV23) [facility] Start: 04-12-2019 Pneumococcal Vaccine: 65+ Years (2 - PPSV23 if available, else PCV20) Pneumococcal Vaccine: 65+ Years (2 - PPSV23 if available, else PCV20) [facility] Start: 04-12-2019 Pneumococcal Vaccine: 65+ Years (2 - PPSV23 or PCV20) Pneumococcal Vaccine: 65+ Years (2 - PPSV23 or PCV20) [facility] Start: 04-12-2019 Pneumococcal Vaccine: 65+ Years (2 of 2 - PPSV23 or PCV20) Pneumococcal Vaccine: 65+ Years (2 of 2 - PPSV23 or PCV20) [facility] Start: 02-13-2016 DIABETES SCREEN DIABETES SCREEN [facility] Start: 09-24-2014 RSV Immunization for Adults (1 - 1-dose 75+ series) RSV Immunization for Adults (1 - 1-dose 75+ series) [facility] Start: 04-23-2010 DIABETES SCREEN DIABETES SCREEN [facility] Start: 09-24-2004 BONE DENSITY BONE DENSITY [facility] Start: 09-24-2004 Pneumococcal 65+ years Vaccine (2 of 2 - PPSV23) Pneumococcal 65+ years Vaccine (2 of 2 - PPSV23) [place] Start: 09-24-2004 PNEUMOCOCCAL: 65+ (1 - PCV) PNEUMOCOCCAL: 65+ (1 - PCV) [facility] Start: 09-24-2004 Screening for osteoporosis Bone Density Screening [facility] Start: 1999 RSV Immunization aged 60 or older (1 - 1-dose 60+ series) RSV Immunization aged 60 or older (1 - 1-dose 60+ series) [facility] Start: 09-24-1994 Screening for osteoporosis DEXA (modify frequency per FRAX score) [place] Start: 09-24-1989 Shingles Vaccine (1 of 2) Shingles Vaccine (1 of 2) [place] Start: 09-24-1989 SHINGRIX VACCINE (1 of 2) SHINGRIX VACCINE (1 of 2) [facility] Start: 09-24-1989 Zoster Vaccines (1 of 2) Zoster Vaccines (1 of 2) [facility] Start: 09-24-1958 Urine microalbumin profile DTAP,TDAP,TD (1 - Tdap) [facility] Start: 09-24-1958 Zoster Vaccines (1 of 2) Zoster Vaccines (1 of 2) [facility] Start: 09-24-1957 Anxiety Screening Anxiety Screening [facility] Start: 09-24-1957 Depression Screening Depression Screening [facility] Start: 09-24-1957 Diabetes: Urine Albumin-Creatinine Ratio for Kidney Health Diabetes: Urine Albumin-Creatinine Ratio for Kidney Health [facility] Start: 09-24-1957 SPIROMETRY SPIROMETRY [facility] Start: 1951 Depression Monitoring Depression Monitoring [facility] Start: 1951 Depresssion Monitoring Depresssion Monitoring [facility] Start: 09-24-1945 PNEUMOCOCCAL: 65+ (1 - PCV) PNEUMOCOCCAL: 65+ (1 - PCV) [facility] Start: 09-24-1944 COVID-19 Vaccine (#1) COVID-19 Vaccine (#1) [facility] Start: 03-27-1940 COVID-19 VACCINE (#1) COVID-19 VACCINE (#1) [facility] Start: 1939 Creatinine measurement Creatinine monitoring [email or web address] [place] Start: 1939 Lipid panel Lipid Panel [facility] Start: 1939 Medicare Advantage Annual Wellness Visit (AWV) Medicare Advantage Annual Wellness Visit (AWV) [facility] Start: 1939 Potassium monitoring Potassium monitoring [facility] [place], [place] Start: 1939 Screening for osteoporosis Bone Density Scan [facility] Start: 1939 Thyroid stimulating hormone measurement TSH Level [facility] Angiography extremit y unilateral rs&i AORTOGRAM, WITH SERIALOGRAPHY Critical limb ischemia of right lower extremity (HCC) [facility] Operating Room Aortography abdomina l serialography rs&i AORTOGRAM, WITH SERIALOGRAPHY Critical limb ischemia of right lower extremity (HCC) [facility] Operating Room BSCAN OD (RIGHT [...] lens 1 Occurrences starting 07/16/2024 until 01/07/2026 [facility] Comment on above: 1 Occurrences starting [...] of right eye 07/09/2024 8:35 AM EST [facility] End: 03-08-2023 CT Neck W contrast IV [employer] Work Phone: Comment on above: Once for 1 Occurrences starting 03/08/20 until 03/08/2023 Incision/Drainage Incision/Drain age Procedures Routine 02/08/2020 7:17 PM EDT [employer] [facility] OUTSIDE PROCEDURE SCAN OUTSIDE P ROCEDURE SCAN Procedures Ordered: 02/21/2023 [facility] Comment on above: Ordered: 02/21/2023 OUTSIDE PROCEDURE SCAN OUTSIDE P ROCEDURE SCAN Procedures Ordered: 03/07/2023 [facility] Comment on above: Ordered: 03/07/2023 OUTSIDE PROCEDURE SCAN OUTSIDE P ROCEDURE SCAN Procedures Ordered: 05/24/2023 [facility] Comment on above: Ordered: 05/24/2023 OUTSIDE PROCEDURE SCAN OUTSIDE P ROCEDURE SCAN Procedures Ordered: 06/14/2023 [facility] Comment on above: Ordered: 06/14/2023 Oxygen therapy [Minimum Data Set] Initiate Oxygen Therapy Protocol Respiratory Care Routine Daily until discontinued starting 03/07/2020 [employer] [facility] Comment on above: Daily until discontinued starting 2019 End: 02-22-2023 US Head and neck soft tissue [employer] Work Phone: Comment on above: Once for 1 Occurrences starting 02/23/20 until 02/22/2023 End: 03-06-2020 XR FINGER RIGHT (MIN 2 VIEWS) XR FINGER RIGHT (MIN 2 VIEWS) Imaging Routine Once for 1 Occurrences starting 03/06/2020 until 03/06/2020 [email or web address] Comment on above: Once for 1 Occurrences starting 03/06/20 until 03/06/2020 XR FINGER RIGHT (MIN 2 VIEWS) XR FINGER RIGHT (MIN 2 VIEWS) Imaging Routine 03/06/2020 10:20 AM EDT [employer] [facility] Immunizations Immunization Date Immunization Notes Care Provider Fa [facility] 05-19-2021 Influenza, High-dose Seasonal, Quadrivalent, Preservative Free Ming Weinberg MD Work Phone: [facility] [email or web address] 05-19-2021 influenza virus vaccine, unspecified formulation Jared Evans MD Work Phone: [email or web address] 02-15-2019 pneumococcal conjuga te vaccine, 13 valent Ming Weinberg MD Work Phone: [facility] [email or web address] 02-15-2019 tetanus toxoid, redu larissa diphtheria toxoid, and acellular pertussis vaccine, adsorbed Ming Weinberg MD Work Phone: [facility] [email or web address] 06-29-2013 influenza, high dose seasonal, preservative-free Ming Weinberg MD Work Phone: [employer] NEGATED: Highlighted row has not occurred!04-05-2024 Seasonal trivalent influenza vaccine, adjuvanted, preservative free Winifred Cornell DO Work Phone: [email or web address] Comment on above: Deferred: Patient Re fused Payers Date Payer Category Payer Unknown [id number] 2024 Self-pay 2023 Private Health Insurance HUMANA HU[employer]NA MEDICARE SUPPLEMENT [id number] 2023-2023 PO [id number] [place] [id number] Commercial [id number] 2017 Medicare [id number]. 1.13.159. [id number] 2017 Medicare (Managed Care) NADEGE ESCOBAR [id number]. [id number] 2017 Medicare HMO HU[employer] MEDICARE [id number]. [id number] 2017 Medicare [id number] 1.2.840.669632.1.13.239. 2.7.3.977390.315 1940 Unknown [id number] 2.16.840.1.989169.3.579. 2.594 Unknown 1.2.840.991039. 1.13.159. 2.7.3.135954.315 Unknown [id number] 2.16.840.1.159137.3.579. 2.462 Unknown [id number] 2.16.840.1.172346.3.579. 2.462 Unknown [id number] 2.16.840.1.285124.3.579. 2.462 Unknown [id number] 2.16.840.1.730883.3.579. 2.462 Unknown [id number] 2.16.840.1.302375.3.579. 2.462 Unknown [id number] 2.16.840.1.532806.3.579. 2.462 Unknown [id number] 2.16.840.1.391650.3.579. 2.462 Unknown [id number] 2.16.840.1.995541.3.579. 2.462 Unknown [id number] 2.16.840.1.067436.3.579. 2.462 Unknown [id number] 2.840.1.233076.3.579. 2.462 Unknown [id number] 2.16840.1.889408.3.579. 2.462 Unknown [id number] 2.840.1.023706.3.579. 2.462 Unknown [id number] 2.840.1.484163.3.579. 2.462 Unknown [id number] 2.840.1.456962.3.579. 2.462 Unknown [id number] 2.840.1.887884.3.579. 2.462 Unknown [id number] 2.840.1.132094.3.579. 2.462 Unknown [id number] 2.840.1.333042.3.579. 2.462 Unknown [id number] 2.840.1.052978.3.579. 2.462 Unknown [id number] 2.840.1.089174.3.579. 2.462 Unknown [id number] 2.840.1.232959.3.579. 2.462 Unknown [id number] 2.840.1.633543.3.579. 2.462 Unknown [id number] 2.840.1.185633.3.579. 2.462 Unknown [id number] .840.1.733459.3.579. 2.462 Unknown [id number] 2.840.1.057117.3.579. 2.462 Unknown [id number] 2.840.1.285711.3.579. 2.462 Unknown [id number] 2.840.1.287852.3.579. 2.462 Unknown [id number] 2.16.840.1.124945.3.579. 2.462 Unknown [id number] 2.16.840.1.542321.3.579. 2.462 Unknown [id number] 2.16.840.1.126271.3.579. 2.462 Unknown [id number] 2.16.840.1.449695.3.579. 2.462 Unknown [id number] 2.16.840.1.444246.3.579. 2.462 Unknown [id number] 2.16.840.1.440837.3.579. 2.462 Unknown [id number] 2.16.840.1.931955.3.579. 2.462 Social History Date Type Detail Facility Start: 02-08-2020 Tobacco smoking stat [facility] Current some day smoker [place] Start: 02-08-2020 End: 04-20-2024 Alcohol intake Current drinker of alcohol (finding) [place] Start: 02-08-2020 End: 05-22-2024 Alcohol Comment occ [place] Start: 1940 Sex Assigned At Not on file [place] Start: 05-04-2022 End: 03-08-2023 Exposure to SARS-CoV-2 (event) Not sure [place] Start: 03-06-2020 End: 04-25-2024 Tobacco smoking status NHIS Former [place] Start: 03-06-2020 End: 04-25-2024 Tobacco use and exposure Never used [place] [facility] consumption unknown [facility] Start: 05-17-2022 End: 04-04-2024 Tobacco smoking status NHIS Smokes tobacco daily [facility] History of tobacco use Cigarette Smoker [facility] Start: 05-17-2022 End: 08-11-2024 Cigarettes smoked current (pack per day) - Reported 0.5 [facility] Start: 05-18-2022 History SDOH Financial 5 [facility] Start: 05-18-2022 History SDOH Food Worry 1 [facility] Start: 05-18-2022 History SDOH Transpo rt Med 2 [facility] Start: 07-05-2022 End: 03-15-2025 Alcohol intake Ex-drinker (finding) [facility] History of tobacco use Current smoker [facility] Start: 07-27-2023 End: 08-11-2024 Gender identity Not on file [facility] How often do you nee d to have someone help you when you read instructions, pamphlets, or other written material from your doctor or pharmacy [SILS] Never [facility] Has the [employer], or water [employer] threatened to shut off services in your home in past 12Mo No [facility] Are you now , , , , never or living with a partner? [facility] How often to you hav e a drink containing alcohol? Monthly or less [facility] How often do you hav e 6 or more drinks on 1 occasion? Never [facility] How hard is it for y ou to pay for the very basics like food, housing, medical care, and heating Not very hard [facility] Do you feel stress - tense, restless, nervous, or anxious, or unable to sleep at night because your mind is troubled all the time - these days [OSQ] Not at all [facility] (I/We) worried wheth er (my/our) food would run out before (I/we) got money to buy more. Never true [facility] Start: 02-15-2022 End: 10-25-2024 Sex Female (finding) [facility] Start: 1940 Sex assigned at Female [facility] Start: 08-03-2024 Gender identity Identifies as female gender (finding) [facility] Start: 08-03-2024 Sexual orientation Heterosexual (fin ding) [facility] NEGATED: Highlighted rowStart: NINF History of tobacco use Passive smoker [facility] Medical Equipment Procedure Code Equipment Code Equipment Origin al Text Equipment Identifier Dates Gas Ispan [employer] Intraocular Vision System [id number] - [id number] Start: 07-27-2024 Stent Vasc 6x40x 125 6f lver [facility] - [id number] Start: 11-22-2024 Stent Oliva [id number] 25 6f [employer] - [facility] - [id number] Start: 11-22-2024 Functional Status Date Assessment Result Facility 07-18-2024 Are you deaf, or do you have serious difficulty hearing No 07/18/2024 12:17 PM Jaci Umana RN No [facility] 07-18-2024 Are you blind, or do you have serious difficulty seeing, even when wearing glasses Yes 07/18/2024 12:17 PM Jaci Umana, RADHA Yes [facility] 07-18-2024 Do you have serious difficulty walking or climbing stairs Yes 07/18/2024 12:17 PM Jaci Umana RN Yes [facility] 07-18-2024 Do you have difficul ty dressing or bathing Yes 07/18/2024 12:17 PM Jaci Umana, RADHA Yes [facility] 07-18-2024 Because of a physica l, mental, or emotional condition, do you have difficulty doing errands alone such as visiting a physician's office or shopping Yes 07/18/2024 12:17 PM Jaci Umana RN Yes [facility] Mental Status Date Assessment Result Facility 07-18-2024 Because of a physica l, mental, or emotional condition, do you have serious difficulty concentrating, remembering, or making decisions No 07/18/2024 12:17 PM Jaci Umana, RADHA No [facility] Clinical Notes 05-14-2022 to 03-15-2025 Andre Berry MD - 03/15/2025 11:15 AM Savana Triana MD - 01/02/2025 9:45 AM Cindy Blankenship MD - 12/24/2024 2:30 PM Cindy Blankenship MD - 12/05/2024 10:00 AM EDTDischarge Instructions Note Date & Type Note Facility 03-15-2025 History of Present illness Narrative Images from the original note were not included. Andre Patel MD [facility] Hematology/Oncology - [facility] [address] [facility] [address] [facility] [address] Dept: [phone] Dept PROBLEM LIST: 1. Recurrent DVT: Initially [...] completing clinical documentation as well as with [id number] patient care, performing a medically appropriate examination, counseling / educating the patient/family/caregiver, and ordering medications, tests, or procedures. HPI: Mel Pop is a 84 y.o. female who presents here today with VTE Pt w/ history of severe atherosclerosis, COPD, former smoker, diverticulosis, afib, hypertension, and GERD who presented to [facility] for right lower extremity pain. [...] trifurcation vessels. Vascular surgery recommended transfer to [facility]. PVR and BLE US results [...] Coumadin. 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 [1] Past Medical History: Diagnosis Date Arrhythmia PAF Asthma Chronic kidney disease COPD (chronic obstructive pulmonary disease) (HCC) DVT (deep venous thrombosis) (HCC) Essential hypertension 03/07/2020 GERD (gastroesophageal reflux disease) Hiatal hernia IBS (irritable bowel syndrome) Pure hypercholesterolemia 03/07/2020 PVD (peripheral vascular disease) ([facility]) Stroke (HCC) [2] Past Surgical History: Procedure Laterality Date ANKLE SURGERY ARM SURGERY (HISTORICAL) Right COLONOSCOPY ESOPHAGEAL DILATION EYE SURGERY Right 07/05/2024 [facility] SURGERY Right 06/2024 x2, [facility] FINGER AMPUTATION Right 03/07/2020 right index [...] Percocet [Oxycodone-Acetaminophen] Itching documented in this encounter [facility] 01-02-2025 History of Present illness Narrative [...] choroidals (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 documented in this encounter [facility] 01-02-2025 Note HNO ID: [id number] Author: SAVANA LOPEZ MD Service: ? 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 Follow up after arterial duplex to discuss the results. 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 Groin site remains intact and LE distal pulses unchanged via assessment with doppler. 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 Groin site remains intact and LE distal pulses unchanged via assessment with doppler. 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 They have elected to proceed. PROCEDURE [...] technique was used to place a 5 [place] sheath. The Bentson wire was positioned in [...] catheter and the catheter removed. The 5 [place]ian sheath was exchanged for a long 6 [place]ian Ansell sheath which was positioned with its [...] sheath was exchanged for a short 6 [place]ian sheath. A Vascade closure device was deployed [...] MD Vascular Surgery documented in this encounter [facility] 11-22-2024 Procedure note POA given updated via phone call. Made aware of patient's orders to lay flat until 1325. Daughter in law stated that she will call care facility later to make arrangements for transportation back. [facility] 11-22-2024 Hospital Discharge instructions Mehreen Khanna [...] the office l documented in this encounter [facility] 11-22-2024 Nurse Note Patient arrived on unit. Name and date verified. Attached to monitors. Vital signs stable. [facility] 11-22-2024 Note [facility] 11-22-2024 Procedure note OPERATIVE REPORT DATE OF [...] the patient as well as the patient's nrydocrs-lx-kjs Fidel. They have elected to proceed. PROCEDURE [...] technique was used to place a 5 [place] Lucian sheath. The Bentson wire was positioned in [...] catheter and the catheter removed. The 5 [place] Lucian sheath was exchanged for a long 6 [place]ian Ansell sheath which was positioned with its [...] sheath was exchanged for a short 6 [place]ian sheath. A Vascade closure device was deployed [...] preoperative examination. Kristyn Blankenship MD Vascular Surgery [facility] 11-22-2024 Attending History and physical note [...] with a walker with pT at her [facility] facility. She is on Eliquis and statin. She is a former smoker. PastMedical History: Past Medical History: Diagnosis Date Arrhythmia PAF Asthma Chronic kidney disease COPD (chronic obstructive pulmonary disease) ([facility]) DVT (deep venous thrombosis) ([facility]) Essential hypertension 03/07/2020 GERD (gastroesophageal reflux disease) Hiatal hernia IBS (irritable bowel syndrome) Pure hypercholesterolemia 03/07/2020 PVD (peripheral vascular disease) ([facility]) Stroke ([facility]) Past Surgical History: Past Surgical History: Procedure Laterality Date ANKLE SURGERY ARM SURGERY (HISTORICAL) Right COLONOSCOPY ESOPHAGEAL DILATION EYE SURGERY Right 07/05/2024 [facility] E[facility] SURGERY Right 06/2024 x2, [facility] FINGER AMPUTATION Right 03/07/2020 right index [...] min Stress: Patient Unable To Answer (08/03/2024) [place] [employer] - Occupational Stress Questionnaire [...] - Moderately Isolated (06/20/2024) Received from [facility] Medical Social Connection and Isolation [...] like me to discuss this with her gifwatgb-le-wyz Fidel Castillo. She states she is her POA. I have contacted Fidel via telephone and explained the above and the recommendations for angiography. She will speak with the patient and call the office to let us know how they would like to proceed. Kristyn Blankenship MD Vascular Surgery [facility] [facility] Phone: 11-22-2024 Note [facility] 11-22-2024 History and physical note [...] with a walker with pT at her [facility] facility. She is on Eliquis and statin. She is a former smoker. PastMedical History: Past Medical History: Diagnosis Date Arrhythmia PAF Asthma Chronic kidney disease COPD (chronic obstructive pulmonary disease) ([facility]) DVT (deep venous thrombosis) ([facility]) Essential hypertension 03/07/2020 GERD (gastroesophageal reflux disease) Hiatal hernia IBS (irritable bowel syndrome) Pure hypercholesterolemia 03/07/2020 PVD (peripheral vascular disease) ([facility]) Stroke ([facility]) Past Surgical History: Past Surgical History: Procedure Laterality Date ANKLE SURGERY ARM SURGERY (HISTORICAL) Right COLONOSCOPY ESOPHAGEAL DILATION EYE SURGERY Right 07/05/2024 [facility] E[facility] SURGERY Right 06/2024 , [facility] FINGER AMPUTATION Right 03/07/2020 right index [...] min Stress: Patient Unable To Answer (08/03/2024) [place] [employer] - Occupational Stress Questionnaire [...] - Moderately Isolated (06/20/2024) Received from [facility] Medical Social Connection and Isolation [...] None Visit Diagnoses PAD (peripheral artery disease) ([facility]) - Primary Skin ulcer of toe of right foot, limited to breakdown of skin ([facility]) Given patient's known peripheral vascular disease and now with development of toe ulceration, I recommend angiography of the right lower extremity with possible intervention. I discussed the procedure with the patient and how it is performed. We discussed the risks of bleeding, infection, damage to surrounding structures, and access site complications. She would like me to discuss this with her krwuhikj-km-ttm Fidel Castillo. She states she is her POA. I have contacted Fidel via telephone and explained the above and the recommendations for angiography. She will speak with the patient and call the office to let us know how they would like to proceed. Kristyn Blankenship MD Vascular Surgery documented in this encounter [facility] 11-09-2024 Note Tried to reach patie nt to discuss fittings tightener her procedure. Mailbox full & unable to leave voicemail. [facility] 11-05-2024 History of Present illness [...] with a walker with pT at her [facility] facility. She is on Eliquis and statin. She is a former smoker. PastMedical History: Past Medical History: Diagnosis Date Arrhythmia PAF Asthma Chronic kidney disease COPD (chronic obstructive pulmonary disease) ([facility]) DVT (deep venous thrombosis) (HCC) Essential hypertension 03/07/2020 GERD (gastroesophageal reflux disease) Hiatal hernia IBS (irritable bowel syndrome) Pure hypercholesterolemia 03/07/2020 PVD (peripheral vascular disease) ([facility]) Stroke (HCC) Past Surgical History: Past Surgical History: Procedure Laterality Date ANKLE SURGERY ARM SURGERY (HISTORICAL) Right COLONOSCOPY ESOPHAGEAL DILATION EYE SURGERY Right 07/05/2024 [facility] E[facility] SURGERY Right 06/2024 x2, [facility] FINGER AMPUTATION Right 03/07/2020 right index [...] Strain: Low Risk (06/20/2024) Received from [facility] Medical Overall Financial Resource Strain [...] min Stress: Patient Unable To Answer (08/03/2024) [place] [employer] - Occupational Stress Questionnaire [...] - Moderately Isolated (06/20/2024) Received from [facility] Medical Social Connection and Isolation [...] like me to discuss this with her fzthzttj-wg-fox Fidel Castillo. She states she is her POA. I have contacted Fidel via telephone and explained the above and the recommendations for angiography. She will speak with the patient and call the office to let us know how they would like to proceed. Kristyn Blankenship MD Vascular Surgery documented in this encounter [facility] 11-05-2024 Note [facility] 10-01-2024 Note Date of Procedure 10/01/2024. Drywaller Information CATALINA Donovan CDOS 10/01/2024 10:58 AM [...] drops right eye documented in this encounter [facility] 10-01-2024 Note HNO ID: [id number] Author: SAVANA LOPEZ MD Service: ? Author [...] choroidals (not yet appositional) - Evaluated at [place] 07/12/24 with intense nausea and multiple episodes [...] to HTN (SBP 199/99 at presentation to [facility]) and anticoagulation that led to angle closure [...] agree with al (more content not included)... [facility] 10-01-2024 History of Present illness Narrative [...] choroidals (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 documented in this encounter [facility] 09-05-2024 Note HNO ID: [id number] Author: SAVANA LOPEZ MD Service: ? 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 [facility] 08-22-2024 History of Present illness Narrative [facility] [place] Vascular Surgery Follow-up Office Visit CHIEF COMPLAINT: Chief Complaint Patient presents with Follow-up 3 month follow up, PAD check ([facility] [place]) HISTORY OF PRESENT ILLNESS: Mel Pop is [...] with PT at [facility] without difficulty. She denies any [...] 07/05/2024 [facility] EYE SURGERY Right 06/2024 x2, [facility] FINGER AMPUTATION Right 03/07/2020 right index [...] Strain: Low Risk (06/20/2024) Received from [facility] Medical Overall Financial Resource Strain [...] min Stress: Patient Unable To Answer (08/03/2024) [place] [employer] - Occupational Stress Questionnaire [...] - Moderately Isolated (06/20/2024) Received from [facility] Medical Social Connection and Isolation [...] Primary PAD (peripheral artery disease) ([facility]) 1. Stable follow up of lower [...] Follow-Up: prn . documented in this encounter [facility] 08-16-2024 Note [facility] 08-16-2024 Nurse Note Patient picked up for transfer to [facility] by stretcher. Report already called to GENET Garcia. [facility] 08-16-2024 Nurse Note Patient picked up for transfer to [facility] by stretcher. Report already called to GENET Garcia. Telephone report called to GENET Garcia at [facility]. Bedside swallow completed. Pt passed and tolerated well tolerated well. documented in this encounter [facility] 08-16-2024 Nurse Note Telephone report called to GENET Garcia at [facility]. [facility] 08-16-2024 Note Formatting of this n ote might be different from the original. Arranged transport to [facility] via [employer] with pickup at 2pm. Notified snf of transport time via [employer] message; reviewed time with RN, refinery operator helper cracking unit and TCC. Called pt's daughter to review discharge time., plan; she is agreeable. [facility] 08-16-2024 Note Formatting of this n ote might be different from the original. Arranged transport to [facility] via [employer] with pickup at 2pm. Notified snf of transport time via [employer] message; reviewed time with RN, refinery operator helper cracking unit and TCC. Called pt's daughter to review discharge time., plan; she is agreeable. [facility] 08-16-2024 Miscellaneous Notes Arranged transport to [facility] via [employer] with pickup at 2pm. Notified snf of transport time via Careport message; reviewed time with RN, refinery operator helper cracking unit and TCC. Called pt's daughter to review discharge time., plan; she is agreeable. Patient Choice Patient Name: MEL POP Date of : 1940 All Providers Sent Referral Name: [facility] Phone: [phone] Address: [address] [place] [address] Name: [facility] Phone: [phone] Address: [address] [place] [address] Name: [facility] Phone: [phone] Address: [address] [place] [address] MAR & Discharge med list transmitted to [facility] via Careport per TCC request. Pt has auth to go to [facility]. Dtr Fidel,[phone] was called, message left @DC. Care Team was messaged...place DC orders/MAR. Dar YOUNG RN complete HECTOR. REGISTERED NURSE AMBULATORY will arrange transport for this am. [facility] tasked to sebd DC orders/MAR. Problem: [...] met Outcome: Progressing Authorization is pending with [facility]. Ref# [id number] [facility] Progressing [facility] [...] placed to SNF[facility] via Careport per [facility] request. Await review and response regarding ability to accept. TCC notified. Electronically signed by Christine Morataya [facility], 08-13-2024 at 3:00 PM Called dgt to talk about dc planning. Dgt continues to tour SNFs this evening, since she was sick this weekend. Provided me with two more SNF choices. [facility]. Tasked [facility] to create these referrals. CM to [...] Dgt touring facilities over the weekend. Moira. [facility] pending acceptance, updates sent via [facility]. Problem: Knowledge Deficit Goal: Patient/family/caregiver demonstrates [...] Nutritional Intake Outcome: Progressing Referral [facility] TCC request. Await review and response regarding ability to accept. TCC notified. Electronically signed by Christine Morataya [facility], 08-10-2024 at 9:23AM Pt was to [...] to be made to [facility]. [facility] tasked to send. A SNF list was emailed to Fidel. [email or web address]. She will tour facilities over weekend. CM [...] and med list sent via Careport to [facility] per TCC request. Auth received. Patient with active dc orders. Transportation arranged through [employer] with estimated picked edge sewing machine operator time of 1929. VM left with daughter Fidel along with 3N phone number to call with questions. Bedside RN aware. Facility updated. [facility] crane crew supervisor sent orders to [facility]. vocational case manager was asked to assist with setting up transport back to [facility] this evening. medical records secretary had already done so, but this esthetician and manager medical spa called daughter to inform her of discharge and transport set up. Daughter did not wish patient to return to the SNF. Plastic Tile Setter told her that patient is medically stable for dc and that she should continue the discussion with the social work associate and it network administrator at The snf, and also get options from [employer]. Coordinator was to message the snf about return this evening via [employer]. Updated PT/OT notes placed to SNF [facility] via Careport per TCC request. Await review and response regarding ability to accept. TCC notified. Electronically signed by [facility] Aracelis Gardiner Patient is medically ready for dc. PT/OT both continuing to recommend SNF. [facility] esthetician and manager medical spa asked to start auth. Plan to dc back to [facility] pending auth I was off Yesterday, PT [...] ready for DC. Pt will return to [facility]. Pt needs PT/OT to start auth [...] RN Outcome: Progressing Return referral placed to [facility] via Careport per TCC request. Await review and response regarding ability to accept. TCC notified. Pt to ED w N/V/Diarrhea, was Dx w Aspiration pneumonitis. Started on IV ATB's. Called pt's Dtr, Fidel, . Pt is from [facility]. Plan on returning. [facility] tasked to send a return referral. [...] Improved Outcome: Progressing documented in this encounter [facility] 08-16-2024 Note Formatting of this n ote might be different from the original. Patient Choice Patient Name: MEL POP Date of : 1940 All Providers Sent Referral Name: [facility] Phone: [phone] Address: [address] [place] [id number] Name: [facility] Phone: [phone] Address: [address] [place], [place] [id number] Name: [facility] Phone: [phone] Address: [address] [place] [address] [facility] 08-16-2024 Note Formatting of this n ote might be different from the original. Patient Choice Patient Name: MEL POP Date of : 1940 All Providers Sent Referral Name: [facility] Phone: [phone] Address: [address] [place] [address] Name: [facility] Phone: [phone] Address: [address] [place] [address] Name: [facility] Phone: [phone] Address: [address] [place] [address] [facility] 08-16-2024 Note Formatting of this n ote might be different from the original. MAR & Discharge med list transmitted to [facility] via Careport per TCC request. [facility] 08-16-2024 Note Formatting of this n ote might be different from the original. MAR & Discharge med list transmitted to [facility] via Careport per TCC request. [facility] 08-16-2024 Note Formatting of this n ote might be different from the original. Pt has auth to go to [facility]. Dtr Fidel,[phone] was called, message left @DC. Care Team was messaged...place DC orders/MAR. Dar YOUNG RN complete HECTOR. REGISTERED NURSE AMBULATORY will arrange transport for this am. [facility] tasked to sebd DC orders/MAR. [employer] 08-16-2024 Note Formatting of this n ote might be different from the original. Pt has auth to go to [facility]. Dttiffanie [phone] was called, message left @DC. Care Team was messaged...place DC orders/MAR. Dar YOUNG, RN complete HECTOR. REGISTERED NURSE AMBULATORY will arrange transport for this am. [employer] tasked to sebd DC orders/MAR. [email or web address] 08-16-2024 History of Present illness Narrative Hospitalist Progress Note 08/16/2024 Subjective: Admit Date: 08/03/2024 PCP: Jared Evans MD Room#: [id number] A BRIEF HOSPITAL COURSE: Mel is a 83 y.o. female with past medical history below who presents with chief complaint listed above.Patient is an 83 y/o female who presented to [place] [facility] early this AM [place] for vomiting and diarrhea. Patient reported she [...] 03/07/2020 PVD (peripheral vascular disease) ([facility]) Stroke ([facility]) LABS: CBC: No results for input(s): [...] Escobar MD Division of Hospitalist Medicine [facility] Hospitalist Progress Note 08/15/2024 Subjective: Admit Date: 08/03/2024 PCP: Jared Evans MD Room#: [id number] A BRIEF HOSPITAL COURSE: Mel is a 83 y.o. female with past medical history below who presents with chief complaint listed above.Patient is an 83 y/o female who presented to [place] early this AM [place] for vomiting and diarrhea. Patient reported she [...] Escobar MD Division of Hospitalist Medicine [facility] Images from the original note were not included. PHYSICAL THERAPY [facility] Treatment Note Name/MRN: Mel Pop ([id number]) Date of : 1940 Age: 83 y.o. 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 [...] Goal: keep getting up, get back to [place]. Encounter Problems Encounter Problems (Active) Balance Patient [...] original note were not included. OCCUPATIONAL THERAPY [facility] Treatment Note Name/MRN: Mel Pop ([id number]) Date of : 1940 Age: 83 y.o. Room[facility]Bed: [facility] A Discharge Recommendation: Assisted Facility Prior Level of Function Prior Level [...] 24/7 assist, home health OT and home office representative. Pt. ( Who is totally BLIND), Would due better receiving therapy in her home due to familiar environment. If she can not get 24/7 assist at home then OT recommend SNF [place]. Subjective Pt. Remains in her recliner eating [...] Date: 08/03/2024 PCP: Jared Evans MD Room#: [id number] A BRIEF HOSPITAL COURSE: Mel is a 83 y.o. female with past medical history below who presents with chief complaint listed above.Patient is an 83 y/o female who presented to [facility] early this [place] for [place] and [place]. Patient reported she [...] (HCC) DVT (deep venous thrombosis) ([facility]) Essential hypertension 03/07/2020 GERD (gastroesophageal reflux disease) Hiatal hernia IBS (irritable bowel syndrome) Pure hypercholesterolemia 03/07/2020 PVD (peripheral vascular disease) ([facility]) Stroke ([facility]) LABS: CBC: No results for input(s): [...] MD Division of Hospitalist Medicine Acute care [facility] Hospitalist Progress Note 08/13/2024 Subjective: Admit Date: 08/03/2024 PCP: Jared Evans MD Room#: [id number] A BRIEF HOSPITAL COURSE: Mel is a 83 y.o. female with past medical history below who presents with chief complaint listed above.Patient is an 83 y/o female who presented to [facility] early this AM [place] for [place] and diarrhea. Patient reported she [...] COPD (chronic obstructive pulmonary disease) ([facility]) DVT (deep venous thrombosis) ([facility]) Essential hypertension 03/07/2020 GERD (gastroesophageal reflux disease) Hiatal hernia IBS (irritable bowel syndrome) Pure hypercholesterolemia 03/07/2020 PVD (peripheral vascular disease) ([facility]) Stroke ([facility]) LABS: CBC: No results for input(s): [...] Anderson DO Division of Hospitalist Medicine [facility] Nutrition Assessment Type and Reason for Visit: [...] No significant fluid accumulation (per flow sheets) Internet Marketing Analyst Strength: Not Performed Nutrition Assessment: 83 y.o. [...] On: Kcal/kg Weight Used for Energy Requirements: [place] Weight for Energy Calculation (kg): 54 kg Total Energy Requirements (kcals/day): 8237-3340 Weight Used for Protein Requirements: [place] Weight in Kg Used for Protein Requirements: [...] 160# 07/05) % Weight Change (Calculated): 12.2 [place] Body Weight (lbs) (Calculated): 119 lbs [place] Body Weight (Kg) (Calculated): 54 kg BMI [...] soon to determine Janki Fields RD Contact: [phone] Hospitalist Progress Note 08/12/2024 Subjective: Admit Date: 08/03/2024 PCP: Jared Evans MD Room#: [id number] A BRIEF HOSPITAL COURSE: Mel is a 83 y.o. female with past medical history below who presents with chief complaint listed above.Patient is an 83 y/o female who presented to [facility] early this AM [place] and diarrhea. Patient reported she [...] 03/07/2020 PVD (peripheral vascular disease) ([facility]) Stroke ([facility]) LABS: CBC: No results for input(s): [...] Anderson DO Division of Hospitalist Medicine [facility] Hospitalist Progress Note 08/11/2024 Subjective: Admit Date: 08/03/2024 PCP: Jared Evans MD Room#: [id number] A BRIEF HOSPITAL COURSE: Mel is a 83 y.o. female with past medical history below who presents with chief complaint listed above.Patient is an 83 y/o female who presented to [place] early this AM [place] for [place] and diarrhea. Patient reported she [...] COPD (chronic obstructive pulmonary disease) ([facility]) DVT (deep venous thrombosis) ([facility]) Essential hypertension 03/07/2020 GERD (gastroesophageal reflux disease) Hiatal hernia IBS (irritable bowel syndrome) Pure hypercholesterolemia 03/07/2020 PVD (peripheral vascular disease) ([facility]) Stroke ([facility]) LABS: CBC: No results for input(s): [...] Kael Anderson DO Division of Hospitalist Medicine [facility] Hospitalist Progress Note 08/10/2024 Subjective: Admit Date: 08/03/2024 PCP: Jared Evans MD Room#: [id number] A BRIEF HOSPITAL COURSE: Mel is a 83 y.o. female with past medical history below who presents with chief complaint listed above.Patient is an 83 y/o female who presented to [facility] early this [place] and [place]. Patient reported she [...] 03/07/2020 PVD (peripheral vascular disease) ([facility]) Stroke ([facility]) LABS: CBC: No results for input(s): [...] Date: 08/03/2024 PCP: Jared Evans MD Room#: [id number] A BRIEF HOSPITAL COURSE: Mel is a 83 y.o. female with past medical history below who presents with chief complaint listed above.Patient is an 83 y/o female who presented to [facility] early this AM [place] for [place] and diarrhea. Patient reported she [...] (HCC) DVT (deep venous thrombosis) ([facility]) Essential hypertension 03/07/2020 GERD (gastroesophageal reflux disease) Hiatal hernia IBS (irritable bowel syndrome) Pure hypercholesterolemia 03/07/2020 PVD (peripheral vascular disease) ([facility]) Stroke ([facility]) LABS: CBC: No results for input(s): [...] Extended Emergency Contact Information Primary Emergency Contact: Jos éMiguel Castillo/ Fidel Mobile Relation: Mother Secondary Emergency Contact: Damaris Villafana DO NOT CALL-TERMINALLY ILL Mobile Relation: Friend Kael Anderson DO Division of Hospitalist Medicine [facility] Images from the original note were not included. OCCUPATIONAL THERAPY [facility] Initial Evaluation Name/MRN: Mel Pop ([id number]) Evaluation Date: 08/08/2024 Date of : 1940 Admission Date: 08/03/2024 2:22 AM Age: 83 y.o. 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[facility]) 07/27/2023 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 ([facility]) 07/27/2023 Bilateral pneumonia 06/16/2022 COVID-19 06/16/2022 Hypothyroidism 06/16/2022 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[facility]) 06/16/2022 Cellulitis 05/18/2022 Nicotine use disorder 05/18/2022 Acute venous embolism and thrombosis of deep vessels of proximal end of right lower extremity ([facility]) 04/19/2024 Atrial fibrillation, unspecified type ([facility]) 04/19/2024 Irritable bowel syndrome with diarrhea 03/07/2020 Microscopic hematuria 03/07/2020 Left retinal detachment 03/07/2020 Hyperglycemia 03/07/2020 Osteopenia of left femoral neck 03/07/2020 half-way current use of anticoagulant therapy 03/07/2020 Seasonal allergies 03/07/2020 Chronic renal insufficiency, stage III (moderate) ([facility]) 03/07/2020 Major depression, single episode, in complete remission ([facility]) 03/07/2020 Gastroesophageal reflux disease without esophagitis 03/07/2020 Essential hypertension 03/07/2020 Pure hypercholesterolemia 03/07/2020 Overweight 03/07/2020 Psoriasis 03/07/2020 History of cerebrovascular accident 03/07/2020 Atrial fibrillation ([facility]) 03/07/2020 Chronic obstructive pulmonary disease ([facility]) 03/07/2020 Finger osteomyelitis, right ([facility]) 03/06/2020 Medical Precautions: Enhanced Contact Proper [...] of Care supervision is transferred to a [facility] Therapy Services Occupational Therapist. Goals and/or treatment plan was established in collaboration with patient/family/other representatives. Shannon Copen MS, OTR/L Images from the original note were not included. PHYSICAL THERAPY [facility] Treatment Note Name/MRN: Mel Pop ([id number]) Date of : 1940 Age: 83 y.o. [facility] A Discharge Recommendation: Assisted Facility Equipment Needed: (pt uses FWW BINDING NICKER) Prior Level of Function Prior Level of [...] Goal: keep getting up, get back to [place]. Encounter Problems Encounter Problems (Active) Balance Patient [...] Date: 08/03/2024 PCP: Jared Evans MD Room#: [id number] A BRIEF HOSPITAL COURSE: Mel is a 83 y.o. female with past medical history below who presents with chief complaint listed above.Patient is an 83 y/o female who presented to [place] early [place] and [place]. Patient reported she [...] COPD (chronic obstructive pulmonary disease) ([facility]) DVT (deep venous thrombosis) ([facility]) Essential hypertension 03/07/2020 GERD (gastroesophageal reflux disease) Hiatal hernia IBS (irritable bowel syndrome) Pure hypercholesterolemia 03/07/2020 PVD (peripheral vascular disease) ([facility]) Stroke ([facility]) LABS: CBC: Recent Labs 08/05/24 2343 [...] Kael Anderson DO Division of Hospitalist Medicine [facility] Hospitalist Progress Note 08/07/2024 Subjective: Admit Date: 08/03/2024 PCP: Jared Evans MD Room#: [id number] A BRIEF HOSPITAL COURSE: Mel is a 83 y.o. female with past medical history below who presents with chief complaint listed above.Patient is an 83 y/o female who presented to [place] [facility] early this AM [place] for [place] and [place]. Patient reported she [...] 03/07/2020 PVD (peripheral vascular disease) ([facility]) Stroke ([facility]) LABS: CBC: Recent Labs 08/05/24 0358 [...] Anderson DO Division of Hospitalist Medicine [facility] Hospitalist Progress Note 08/06/2024 Subjective: Admit Date: 08/03/2024 PCP: Jared Evans MD Room#: [id number] A BRIEF HOSPITAL COURSE: Mel is a 83 y.o. female with past medical history below who presents with chief complaint listed above.Patient is an 83 y/o female who presented to [place] [facility] early this AM [place] for [place] and [place]. Patient reported she [...] (HCC) DVT (deep venous thrombosis) ([facility]) Essential hypertension 03/07/2020 GERD (gastroesophageal reflux disease) Hiatal hernia IBS (irritable bowel syndrome) Pure hypercholesterolemia 03/07/2020 PVD (peripheral vascular disease) ([facility]) Stroke ([facility]) LABS: CBC: Recent Labs 08/04/24 0447 [...] Tatum MD Division of Hospitalist Medicine [facility] Images from the original note were not included. PHYSICAL THERAPY [facility] Initial Evaluation Name/MRN: Mel Pop ([id number]) Evaluation Date: 08/06/2024 Date of : 1940 Admission Date: 08/03/2024 2:22 AM Age: 83 y.o. [facility] Discharge Recommendation: Assisted Facility (pt from SNF at baseline) Equipment Needed: (pt uses FWW BINDING NICKER) Assessment IMPRESSION: Pt's Vincent scoring has varied [...] to SNF-level care (pt was receiving PT BINDING NICKER) Admitting Diagnosis: aspiration pneumonitis, + Norovirus. S/p [...] (HCC) DVT (deep venous thrombosis) ([facility]) Essential hypertension 03/07/2020 GERD (gastroesophageal reflux disease) Hiatal hernia IBS (irritable bowel syndrome) Pure hypercholesterolemia 03/07/2020 PVD (peripheral vascular disease) ([facility]) Stroke ([facility]) Past Surgical History: Past Surgical History: Procedure Laterality Date ANKLE SURGERY ARM SURGERY (HISTORICAL) Right COLONOSCOPY ESOPHAGEAL DILATION EYE SURGERY 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 HYSTERECTOMY ORTHOPEDIC SURGERY THROMBECTOMY Right 04/06/2024 RLE mechanical thrombectomy (Krzysztof) Admission Diagnosis: Patient Active Problem List Diagnosis Date Noted Aspiration pneumonitis (CMS/HCC) ([facility]) 08/03/2024 Visual disturbance, subjective 07/06/2024 Retinal detachment, right 07/05/2024 Vision loss of right eye 07/05/2024 Acute venous embolism and thrombosis of deep vessels of proximal lower extremity ([facility]) 04/14/2024 Peripheral arterial disease ([facility]) 04/03/2024 Immunodeficiency due to conditions classified elsewhere ([facility]) 07/27/2023 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 ([facility]) 07/27/2023 Bilateral pneumonia 06/16/2022 COVID-19 06/16/2022 Hypothyroidism 06/16/2022 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[facility]) 06/16/2022 Cellulitis 05/18/2022 Nicotine use disorder 05/18/2022 Acute venous embolism and thrombosis of deep vessels of proximal end of right lower extremity ([facility]) 04/19/2024 Atrial fibrillation, unspecified type ([facility]) 04/19/2024 Irritable bowel syndrome with diarrhea 03/07/2020 Microscopic hematuria 03/07/2020 Left retinal detachment 03/07/2020 Hyperglycemia 03/07/2020 Osteopenia of left femoral neck 03/07/2020 half-way current use of anticoagulant therapy 03/07/2020 Seasonal allergies 03/07/2020 Chronic renal insufficiency, stage III (moderate) ([facility]) 03/07/2020 Major depression, single episode, in complete remission ([facility]) 03/07/2020 Gastroesophageal reflux disease without esophagitis 03/07/2020 Essential hypertension 03/07/2020 Pure hypercholesterolemia 03/07/2020 Overweight 03/07/2020 Psoriasis 03/07/2020 History of cerebrovascular accident 03/07/2020 Atrial fibrillation ([facility]) 03/07/2020 Chronic obstructive pulmonary disease ([facility]) 03/07/2020 Finger osteomyelitis, right ([facility]) 03/06/2020 Medical Precautions: Enhanced Contact Proper [...] OD Hearing: normal Social/Functional History Resident at [facility] at baseline. Goes to therapy and [...] Goal: keep getting up, get back to [place]. Encounter Problems Encounter Problems (Active) Balance Patient [...] of Care supervision is transferred to a [facility] Therapy Services Physical Therapist. Goals and/or treatment plan was established in collaboration with patient/family/other representatives. Hospitalist Progress Note 08/05/2024 Subjective: Admit Date: 08/03/2024 PCP: Jared Evans MD Room#: N8-261/[id number] A BRIEF HOSPITAL COURSE: Mel is a 83 y.o. female with past medical history below who presents with chief complaint listed above.Patient is an 83 y/o female who presented to [facility] early this AM from local [place] for vomiting and diarrhea. Patient reported she [...] (HCC) DVT (deep venous thrombosis) ([facility]) Essential hypertension 03/07/2020 GERD (gastroesophageal reflux disease) Hiatal hernia IBS (irritable bowel syndrome) Pure hypercholesterolemia 03/07/2020 PVD (peripheral vascular disease) ([facility]) Stroke ([facility]) LABS: CBC: Recent Labs 08/03/24 0251 [...] Tatum MD Division of Hospitalist Medicine [facility] Images from the original note were not included. PHYSICAL THERAPY [facility] Name/MRN: Mel Pop ([id number]) Date: 08/05/2024 PT orders received per Vincent activity/mobility score. Patient currently with Vincent activity/mobility score greater than 2. Per therapy services guidelines, will discharge PT orders. Please place regular PT eval/treat orders if deemed appropriate. Padmaja Wilson PT Hospitalist Progress Note 08/04/2024 Subjective: Admit Date: 08/03/2024 PCP: Jared Evans MD Room#: N5-548/[id number] A BRIEF HOSPITAL COURSE: Mel is a 83 y.o. female with past medical history below who presents with chief complaint listed above.Patient is an 83 y/o female who presented to [facility] early this AM [place] for [place] and diarrhea. Patient reported she [...] COPD (chronic obstructive pulmonary disease) ([facility]) DVT (deep venous thrombosis) ([facility]) Essential hypertension 03/07/2020 GERD (gastroesophageal reflux disease) Hiatal hernia IBS (irritable bowel syndrome) Pure hypercholesterolemia 03/07/2020 PVD (peripheral vascular disease) ([facility]) Stroke ([facility]) LABS: CBC: Recent Labs 08/03/24 [id number] [...] Tatum MD Division of Hospitalist Medicine [facility] documented in this encounter [facility] 08-15-2024 Plan of care note Problem: [...] My discharge needs are met Outcome: Progressing [facility] 08-15-2024 Note Formatting of this n ote might be different from the original. Authorization is pending with [employer]. Ref# [id number] to be DC'd to [facility]. Dtr Fidel Updated. CM to follow. [facility] 08-15-2024 Note Formatting of this n ote might be different from the original. Authorization is pending with [employer]. Ref# [id number] to be DC'd to [facility]. Dtr Fidel Updated. CM to follow. [facility] 08-15-2024 Note Patient progressing toward all goals. [facility] 08-15-2024 Plan of care note Patient progressing toward all goals. [facility] 08-14-2024 Plan of care note Problem: Knowledge [...] My discharge needs are met Outcome: Progressing [facility] 08-14-2024 Hospital Discharge instructions Devika Escobar [...] detachment Hyperglycemia Osteopenia of left femoral neck half-way current use of anticoagulant therapy Seasonal allergies [...] assistance Toileting Total assistance Feeding Minimal assistance Media Relations Specialist Minimal assistance Med Delivery yes Wound Care [...] Date: 08/03/2024 Discharging to Facility/ Agency Name: [facility] Address: [address] [place] [address] Fax: Dialysis Facility (if applicable) Name: Address: Dialysis Schedule: Phone: Fax: Reclaimer/Senior Technical Recruiter signature: ICIAN SECTION Name: Mel Pop Prognosis: good Condition at Discharge: stable Rehab Potential (if transferring to Rehab): good Recommended Labs or Other Treatments After Discharge: none The individual is being admitted to a nursing facility directly from an [facility] or a unit of a [facility] that is not operated by or licensed by [facility] under section 5119.14 or 5160-3-15.1 5 The individual requires the level of services provided by a nursing facility for the condition for which he or she was treated in the hospital and, Physician Certification: I certify the above information and transfer of Mel Pop is necessary for the continuing treatment of the diagnosis listed and that she requires [facility] facility for less than 30 days. Update Admission H&P: No change in H&P PHYSICIAN SIGNATURE: documented in this encounter [facility] 08-14-2024 Note Formatting of this n ote might be different from the original. Pt has Been accepted to [facility]. Need PT/OT to see so auth to be started. Therapy to see today was sent. Called and spoke with braxton Cardozo. SNF tasked w update. CM to follow. [facility] 08-14-2024 Note Formatting of this n ote might be different from the original. Pt has Been accepted to [facility]. Need PT/OT to see so auth to be started. Therapy to see today was sent. Called and spoke with braxton Cardozo. SNF tasked w update. CM to follow. [facility] 08-13-2024 Plan of care note Problem: [...] discharge needs are met Outcome: Progressing [facility] 08-13-2024 Note Formatting of this n ote might be different from the original. Referral placed to [facility] via Careport per TCC request. Await review and response regarding ability to accept. TCC notified. Electronically signed by Christine Morataya [facility], 08-13-2024 at 3:00 PM [facility] 08-13-2024 Note Formatting of this n ote might be different from the original. Referral placed to SNF- [facility] via Careport per TCC request. Await review and response regarding ability to accept. TCC notified. Electronically signed by Christine Morataya CMA, 08-13-2024 at 3:00 PM [facility] 08-13-2024 Note Referral placed to S - [facility] via Careport per TCC request. Await review and response regarding ability to accept. TCC notified. Electronically signed by Christine Morataya [facility], 08-13-2024 at 3:00 PM [facility] 08-13-2024 Note Formatting of this n ote might be different from the original. Called dgt to talk about dc planning. Dgt continues to tour SNFs this evening, since she was sick this weekend. Provided me with two more SNF choices. [facility]. Tasked [facility] to create these referrals. CM to follow. [facility] 08-13-2024 Note Formatting of this n ote might be different from the original. Called dgt to talk about dc planning. Dgt continues to tour SNFs this evening, since she was sick this weekend. Provided me with two more SN[facility] choices. [facility]. Tasked MANHOLE BUILDER to create these referrals. CM to follow. [facility] 08-13-2024 Plan of care note Problem: [...] discharge needs are met Outcome: Progressing [facility] 08-12-2024 Note Problem: Knowledge D eficit Goal: Patient/family/caregiver demonstrates understanding of disease process, treatment plan, medications, and discharge instructions Outcome: Progressing [facility] [email or web address] [facility] 08-12-2024 Plan of care note Problem: Knowledge Deficit Goal: Patient/family/caregiver demonstrates understanding of disease process, treatment plan, medications, and discharge instructions Outcome: Progressing [facility] 08-12-2024 Plan of care note [...] My discharge needs are met Outcome: Progressing [facility] [email or web address] 08-11-2024 Plan of care note Problem: Knowledge [...] discharge needs are met Outcome: Progressing [facility] 08-11-2024 Note Formatting of this n ote might be different from the original. CM noted DC orders in place, Dgt touring facilities over the weekend. Moira. [facility] pending acceptance, updates sent via careport. [facility] 08-11-2024 Note Formatting of this n ote might be different from the original. JOSH noted DC orders in place, Dgt touring facilities over the weekend. Moira. [facility] pending acceptance, updates sent via careport. [facility] 08-11-2024 Plan of care note Problem: Knowledge [...] Goal: Assess Nutritional Intake Outcome: Progressing [facility] 08-10-2024 Note Formatting of this n ote might be different from the original. Referral placed to [facility] via Careport per TCC request. Await review and response regarding ability to accept. TCC notified. Electronically signed by Christine Morataya [facility], 08-10-2024 at 9:23AM [facility] 08-10-2024 Note Formatting of this n ote might be different from the original. Referral placed to [facility] via Careport per TCC request. Await review and response regarding ability to accept. TCC notified. Electronically signed by Christine Morataya CMA, 08-10-2024 at 9:23AM [facility] 08-10-2024 Note Referral placed to [facility] via Careport per TCC request. Await review and response regarding ability to accept. TCC notified. Electronically signed by Christine Morataya CMA, 08-10-2024 at 9:23AM [facility] 08-10-2024 Note Formatting of this [...] to be made to [facility]. MANHOLE BUILDER tasked to send. A SNF list was emailed to [email or web address]. She will tour facilities over weekend. CM to follow. [facility] [email or web address] 08-10-2024 Note Formatting of this n ote [...] to be made to [facility]. MANHOLE BUILDER tasked to send. A SNF list was emailed to Fidel. [email or web address]. She will tour facilities over weekend. CM to follow. [facility] [email or web address] 08-10-2024 Plan of care note Problem: Knowledge [...] Interventions Goal: Assess Nutritional Intake Outcome: Progressing [facility] [email or web address] 08-09-2024 Note Formatting of this n ote might be different from the original. Discharge summary and med list sent via Careport to [facility] per TCC request. [facility] 08-09-2024 Note Formatting of this n ote might be different from the original. Discharge summary and med list sent via Careport to [facility] per [facility] request. [facility] 08-09-2024 Note Discharge summary an d med list sent via Careport to [facility] per [facility] request. [facility] 08-09-2024 Note Formatting of this n ote might be different from the original. Auth received. Patient with active dc orders. Transportation arranged through [employer] with estimated picked edge sewing machine operator time of 1930. VM left with daughter Fidel along with 3N phone number to call with questions. Bedside RN aware. Facility updated. [facility] crane crew supervisor sent orders to [facility]. [facility] 08-09-2024 Note Formatting of this n ote might be different from the original. Auth received. Patient with active dc orders. Transportation arranged through [employer] with estimated picked edge sewing machine operator time of 1930. left with milady Stokes along with 3N phone number to call with questions. Bedside RN aware. Facility updated. [facility] crane crew supervisor sent orders to [facility]. [facility] 08-09-2024 Note Formatting of this n ote might be different from the original. vocational case manager was asked to assist with setting up transport back to [facility] this evening. medical records secretary had already done so, but this esthetician and manager medical spa called daughter to inform her of discharge and transport set up. Daughter did not wish patient to return to the SNF. Plastic Tile Setter told her that patient is medically stable for dc and that she should continue the discussion with the social work associate and it network administrator at The snf, and also get options from [employer]. Coordinator was to message the snf about return this evening via CarePort. [facility] 08-09-2024 Note Formatting of this n ote might be different from the original. vocational case manager was asked to assist with setting up transport back to [facility] this evening. medical records secretary had already done so, but this esthetician and manager medical spa called daughter to inform her of discharge and transport set up. Daughter did not wish patient to return to the SNF. Plastic Tile Setter told her that patient is medically stable for dc and that she should continue the discussion with the social work associate and it network administrator at The snf, and also get options from [employer]. Coordinator was to message the snf about return this evening via [employer]. [facility] 08-09-2024 Note [facility] 08-09-2024 Hospital course Narrative Hospitalist [...] 03/07/2020 PVD (peripheral vascular disease) ([facility]) Stroke ([facility]) Procedures: NA Hospital Course: Mel is a 83 y.o. female with past medical history below who presents with chief complaint listed above.Patient is an 83 y/o female who presented to [facility] early this AM [place] for [place] and diarrhea. Patient reported she [...] Ellipta 100-62.5-25 MCG/ACT aerosol powder Generic drug: Adcajvaonpv-Ynkeqyarg-Twoqha STOP taking these medications enoxaparin 80 MG/0.8ML [...] Complexity: follow up within 7-14 calendar days (81036) [x] Severe Complexity: follow up within 7 calendar days (42372) Follow up Testing, Pending results or Referrals [...] frame. Signed: Kael Anderson DO [facility] 08/09/2024, 4:23 PM documented in this encounter [facility] 08-09-2024 Note Formatting of this n ote might be different from the original. Updated PT/OT notes placed to [facility] via Careport per TCC request. Await review and response regarding ability to accept. TCC notified. Electronically signed by [facility] Aracelis Gardiner [facility] 08-09-2024 Note Formatting of this n ote might be different from the original. Updated PT/OT notes placed to [facility] via Careport per TCC request. Await review and response regarding ability to accept. TCC notified. Electronically signed by [facility] Aracelis Gardiner [facility] 08-09-2024 Note Formatting of this n ote might be different from the original. Patient is medically ready for dc. PT/OT both continuing to recommend SNF. MANHOLE BUILDER esthetician and manager medical spa asked to start auth. Plan to dc back to [facility] pending auth [facility] 08-09-2024 Note Formatting of this n ote might be different from the original. Patient is medically ready for dc. PT/OT both continuing to recommend SNF. MANHOLE BUILDER esthetician and manager medical spa asked to start auth. Plan to dc back to [facility] pending auth [facility] 08-08-2024 Note Formatting of this n ote [...] to [facility]. CM to follow. [email or web address] 08-08-2024 Note Formatting of this n ote might be different from the original. I was off Yesterday, PT note was in from Tuesday. Therapy to see today was sent out to OT Tuesday to see yesterday. Pt was not seen. I did sent a therapy to see today to PT/OT so an auth can be started. [facility] CM to follow. [employer] [facility] [email or web address] 08-07-2024 Plan of care note Problem: Knowledge Deficit Goal: Patient/family/caregiver demonstrates understanding of disease process, treatment plan, medications, and discharge instructions Outcome: Progressing Problem: Potential for Compromised Skin Integrity Goal: Skin Integrity is Maintained or Improved Outcome: Progressing Goal: Nutritional status is improving Outcome: Progressing [email or web address] 08-07-2024 Plan of care note Problem: Knowledge [...] Interventions Goal: Assess Nutritional Intake Outcome: Progressing [email or web address] 08-07-2024 Note Formatting of this n ote might be different from the original. Case Management Progress Note: Patient remains on 5N for concern with aspiration 2/2 vomiting. Discharge Plan: Return to [facility]. Therapy eval needed for precert. TCC to assist and follow as needed. [employer] 08-07-2024 Note Formatting of this n ote might be different from the original. Case Management Progress Note: Patient remains on 5N for concern with aspiration 2/2 vomiting. Discharge Plan: Return to [facility]. Therapy eval needed for precert. TCC to assist and follow as needed. [employer] 08-07-2024 Plan of care note Problem: Knowledge [...] Interventions Goal: Assess Nutritional Intake Outcome: Progressing [employer] 08-06-2024 Plan of care note Problem: Knowledge [...] Interventions Goal: Assess Nutritional Intake Outcome: Progressing [employer] 08-06-2024 Note Formatting of this n ote might be different from the original. Pt cont's on IV AtBs'. Plan is for pt to return to [facility]. Auth and HECTOR needed prior to DC. CM to follow. [facility] 08-06-2024 Note Formatting of this n ote might be different from the original. Pt cont's on IV AtBs'. Plan is for pt to return to [facility]. Auth and HECTOR needed prior to DC. CM to follow. [facility] [email or web address] 08-06-2024 Note Formatting of this n ote might be different from the original. Per attending pt ready for DC. Pt will return to [facility]. Pt needs PT/OT to start auth Therapy to see put in for alistair so auth can be started. HECTOR will need completed. CM to follow. [facility] [email or web address] 08-06-2024 Note Formatting of this n ote might be different from the original. Per attending pt ready for DC. Pt will return to [facility]. Pt needs PT/OT to start auth Therapy to see put in for alistair so auth can be started. HECTOR will need completed. CM to follow. [facility] [email or web address] 08-06-2024 Consult note Associated Order (s): IP [...] assess Fluid Accumulation: No significant fluid accumulation Internet Marketing Analyst Strength: Not Performed Nutrition Assessment: Pt hx HTN, stroke, COPD, CKD, IBS. Admitted w/ vomiting and diarrhea. +norovirus. Started on abx for concern of aspiration pna. Pt's symptoms have improved during admission. Consuming and tolerating CLD. Medically stable for discharge back to SNF per notes. Estimated Daily Nutrient Needs: Energy Requirements Based On: Kcal/kg Weight Used for Energy Requirements: [place] Weight for Energy Calculation (kg): 54 kg Total Energy Requirements (kcals/day): 1096-6528 Weight Used for Protein Requirements: [place] Weight in Kg Used for Protein Requirements: [...] 160# 07/05) % Weight Change (Calculated): 12.2 [place] Body Weight (lbs) (Calculated): 119 lbs [place] Body Weight (Kg) (Calculated): 54 kg BMI [...] to determine Gabriella Michelle RD, LD Contact: [phone] [facility] [email or web address] 08-06-2024 Consult note Associated Order (s): IP [...] assess Fluid Accumulation: No significant fluid accumulation Internet Marketing Analyst Strength: Not Performed Nutrition Assessment: Pt hx HTN, stroke, COPD, CKD, IBS. Admitted w/ vomiting and diarrhea. +norovirus. Started on abx for concern of aspiration pna. Pt's symptoms have improved during admission. Consuming and tolerating CLD. Medically stable for discharge back to SNF per notes. Estimated Daily Nutrient Needs: Energy Requirements Based On: Kcal/kg Weight Used for Energy Requirements: [place] Weight for Energy Calculation (kg): 54 kg Total Energy Requirements (kcals/day): 1915-8946 Weight Used for Protein Requirements: [place] Weight in Kg Used for Protein Requirements: [...] 160# 07/05) % Weight Change (Calculated): 12.2 [place] Body Weight (lbs) (Calculated): 119 lbs [place] Body Weight (Kg) (Calculated): 54 kg BMI [...] to determine Gabriella Michelle RD, LD Contact: [phone] documented in this encounter [facility] 08-06-2024 Plan of care note Problem: Knowledge Deficit Goal: Patient/family/caregiver demonstrates understanding of disease process, treatment plan, medications, and discharge instructions Outcome: Progressing Problem: Potential for Compromised Skin Integrity Goal: Skin Integrity is Maintained or Improved Outcome: Progressing Goal: Nutritional status is improving Outcome: Progressing Problem: Urinary Incontinence Goal: Perineal skin integrity is maintained or improved Outcome: Progressing [facility] 08-05-2024 Plan of care note Problem: Knowledge Deficit Goal: Patient/family/caregiver demonstrates understanding of disease process, treatment plan, medications, and discharge instructions Outcome: Progressing Problem: Potential for Compromised Skin Integrity Goal: Skin Integrity is Maintained or Improved Outcome: Progressing Goal: Nutritional status is improving Outcome: Progressing Problem: Urinary Incontinence Goal: Perineal skin integrity is maintained or improved Outcome: Progressing [facility] 08-04-2024 Plan of care note Problem: Knowledge Deficit Goal: Patient/family/caregiver demonstrates understanding of disease process, treatment plan, medications, and discharge instructions Outcome: Progressing Problem: Potential for Compromised Skin Integrity Goal: Skin Integrity is Maintained or Improved Outcome: Progressing Goal: Nutritional status is improving Outcome: Progressing Problem: Urinary Incontinence Goal: Perineal skin integrity is maintained or improved Outcome: Progressing [facility] 08-04-2024 Nurse Note Bedside swallow completed. Pt passed and tolerated well tolerated well. [facility] 08-04-2024 Plan of care note Problem: Knowledge Deficit Goal: Patient/family/caregiver demonstrates understanding of disease process, treatment plan, medications, and discharge instructions Outcome: Progressing Problem: Potential for Compromised Skin Integrity Goal: Skin Integrity is Maintained or Improved Outcome: Progressing Goal: Nutritional status is improving Outcome: Progressing Problem: Urinary Incontinence Goal: Perineal skin integrity is maintained or improved Outcome: Progressing [facility] 08-03-2024 Plan of care note Problem: [...] by Lima Saenz RN Outcome: Progressing [facility] 08-03-2024 Note Formatting of this n ote might be different from the original. Return referral placed to [facility] via [facility] per TCC request. Await review and response regarding ability to accept. TCC notified. [facility] 08-03-2024 Note Formatting of this n ote might be different from the original. Return referral placed to [facility] via [facility] per TCC request. Await review and response regarding ability to accept. TCC notified. [facility] 08-03-2024 Note Return referral plac ed to [facility] via [facility] per TCC request. Await review and response regarding ability to accept. TCC notified. [facility] 08-03-2024 Note Formatting of this n ote might be different from the original. Pt to ED w N/V/Diarrhea, was Dx w Aspiration pneumonitis. Started on IV ATB's. Called pt's [facility]idel, . Pt is from [facility]. Plan on returning. [facility] tasked to send a return referral. [facility] 08-03-2024 Note Formatting of this n ote might be different from the original. Pt to ED w N/V/Diarrhea, was Dx w Aspiration pneumonitis. Started on IV ATB's. Called pt's [facility]tr[facility]idel, . Pt is from [facility]. Plan on returning. [facility] tasked to send a return referral. [facility] 08-03-2024 History and physical note Attending History and Physical Admit Date: 08/03/2024 PCP: Jared Evans MD CHIEF COMPLAINT: vomiting/diarrhea Reason for Admission: aspiration pneumonitis History Obtained From: patient HISTORY OF PRESENT ILLNESS: Mel is a 83 y.o. female with past medical history below who presents with chief complaint listed above.Patient is an 83 y/o female who presented to [facility] early this AM from local [place] for vomiting and diarrhea. 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 female with past medical history below who presents with chief complaint listed above.Patient is an 83 y/o female who presented to [facility] early this AM from local [place] for vomiting and diarrhea. 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] [_] DNR [...] [place] PA-C Division of Hospitalist Medicine [facility] Cosigned by Abbi Long DO at 08/03/2024 [...] or regular rigidity documented in this encounter [facility] 08-03-2024 Plan of care note Problem: Potential for Compromised Skin Integrity Goal: Skin Integrity is Maintained or Improved 08/03/2024 0842 by Lima Saenz RN Outcome: Progressing 08/03/2024 0842 by Lima Saenz RN Outcome: Progressing Problem: Potential for Compromised Skin Integrity Goal: Nutritional status is improving 08/03/2024 0842 by Lima Saenz RN Outcome: Progressing 08/03/2024 0842 by Lima Saenz RN Outcome: Progressing [facility] 08-03-2024 Plan of care note Problem: Knowledge Deficit Goal: Patient/family/caregiver demonstrates understanding of disease process, treatment plan, medications, and discharge instructions Outcome: Progressing Problem: Potential for Compromised Skin Integrity Goal: Skin Integrity is Maintained or Improved Outcome: Progressing [facility] 08-03-2024 Emergency department Note Pt placed in roundtrip [facility] 08-03-2024 Emergency department Note Pt placed [...] to the emergency department from [facility] for acute onset nausea/vomiting/diarrhea x 3 episodes that began 45 minutes prior to arrival. No blood in emesis or diarrhea. Given single dose of Zofran by half-way staff following first episode but subsequently soon [...] 45 minutes prior to ED transport for half-way. long-term reports a second resident with similar symptoms earlier today. No known flu or COVID exposures. Patient denying other flu or COVID symptoms such as headache, myalgias, fevers, congestion, cough. Nursing Notes were reviewed. Limitations to history: None Outside historians: long-term staff (Jabari) REVIEW OF SYSTEMS Review of [...] Strain: Low Risk (06/20/2024) Received from [facility] Medical Overall Financial Resource Strain (CARDIA) Difficulty of Paying Living Expenses: Not very hard Food Insecurity: No Food Insecurity (07/09/2024) Received from [facility] Hunger Vital Sign Worried About Running Out of Food in the Last Year: Never true Ran Out of Food in the Last Year: Never true Transportation Needs: No Transportation Needs (07/09/2024) Received from [facility] PRAPARE - Transportation Lack of Transportation (Medical): No Lack of Transportation (Non-Medical): No Physical Activity: Inactive (04/04/2024) Exercise Vital Sign Days of Exercise per Week: 0 days Minutes of Exercise per Session: 0 min Stress: No Stress Concern Present (06/19/2024) Received from [facility] [place] of Occupational Health - Occupational Stress Questionnaire Feeling of Stress : Not at all Social Connections: Moderately Isolated (06/20/2024) Received from [facility] Medical Social Connection and Isolation [...] Not At Risk (06/19/2024) Received from [facility] Medical Domestic Abuse Assessment Do you feel safe in your relationships at home?: Yes Physical Abuse: Denies Verbal Abuse: Denies Housing Stability: Low Risk (07/09/2024) Received from [facility] Housing Stability Vital Sign Unable to [...] No bowel dilatation Report Dictated on Workstation: [employer] Electronically Signed By: Ming Fry MD Electronically Signed Date/Time: 08/03/2024 4:05 AM EST XR chest 1 view Final Result No acute abnormality Report Dictated on Workstation: [employer] Electronically Signed By: Ming Fry MD Electronically [...] In compliance with this authorization, please visit www.fda.gov/media/190013/download or www.fda.gov/media/994640/download to access the applicable information sheets. LIPASE [...] to the emergency department from [facility] for acute onset nausea/vomiting/diarrhea x 3 episodes that began 45 minutes prior to arrival. No blood in emesis or diarrhea. Given single dose of Zofran by half-way staff following first episode of emesis but [...] 45 minutes prior to ED transport for half-way. long-term reports a second resident with similar symptoms [...] baseline. Patient admitted to medical service at [facility] under Dr. Parrish. ED Medications managed: [...] IMPRESSION 1. Aspiration pneumonitis (CMS/HCC) ([facility]) 2. Vomiting and diarrhea 3. LORENZA (acute kidney injury) ([facility]) DISPOSITION Observation 08/03/2024 04:20:39 AM PATIENT [...] DO 08/03/24 0422 documented in this encounter [facility] 08-03-[address] and ED xray notified that patient is ready [facility] 08-03-2024 Physician Emergency department Note EMERGENCY [...] to the emergency department from [facility] for acute onset nausea/vomiting/diarrhea x 3 episodes that began 45 minutes prior to arrival. No blood in emesis or diarrhea. Given single dose of Zofran by half-way staff following first episode but subsequently soon [...] 45 minutes prior to ED transport for half-way. long-term reports a second resident with similar symptoms earlier today. No known flu or COVID exposures. Patient denying other flu or COVID symptoms such as headache, myalgias, fevers, congestion, cough. Nursing Notes were reviewed. Limitations to history: None Outside historians: long-term staff (Jabari) REVIEW OF SYSTEMS Review of [...] Strain: Low Risk (06/20/2024) Received from [facility] Medical Overall Financial Resource Strain (CARDIA) Difficulty of Paying Living Expenses: Not very hard Food Insecurity: No Food Insecurity (07/09/2024) Received from [facility] Hunger Vital Sign Worried About Running Out of Food in the Last Year: Never true Ran Out of Food in the Last Year: Never true Transportation Needs: No Transportation Needs (07/09/2024) Received from [facility] PRAPARE - Transportation Lack of Transportation (Medical): No Lack of Transportation (Non-Medical): No Physical Activity: Inactive (04/04/2024) Exercise Vital Sign Days of Exercise per Week: 0 days Minutes of Exercise per Session: 0 min Stress: No Stress Concern Present (06/19/2024) Received from [facility] [place] of Occupational Health - Occupational Stress Questionnaire Feeling of Stress : Not at all Social Connections: Moderately Isolated (06/20/2024) Received from [facility] Medical Social Connection and Isolation [...] Not At Risk (06/19/2024) Received from [facility] Medical Domestic Abuse Assessment Do you feel safe in your relationships at home?: Yes Physical Abuse: Denies Verbal Abuse: Denies Housing Stability: Low Risk (07/09/2024) Received from [facility] Housing Stability Vital Sign Unable to [...] In compliance with this authorization, please visit www.fda.gov/media/435358/download or www.fda.gov/media/763612/download to access the applicable information sheets. LIPASE [...] to the emergency department from [facility] for acute onset nausea/vomiting/diarrhea x 3 episodes that began 45 minutes prior to arrival. No blood in emesis or diarrhea. Given single dose of Zofran by half-way staff following first episode of emesis but [...] 45 minutes prior to ED transport for half-way. long-term reports a second resident with similar symptoms [...] baseline. Patient admitted to medical service at [facility] under Dr. Parrish. ED Medications managed: [...] IMPRESSION 1. Aspiration pneumonitis (CMS/HCC) ([facility]) 2. Vomiting and diarrhea 3. LORENZA (acute kidney injury) ([facility]) DISPOSITION Observation 08/03/2024 04:20:39 AM PATIENT [...] Medicine Provider Mariana King DO 08/03/24 0422 [facility] [email or web address] 08-01-2024 Instructions Savana Lopez MD - 08/01/2024 1:06 PM EST - Continue Pred forte 4x / day right eye - Stop Cipro - Stop Brimonidine - Continue erythromycin antibiotic ointment as needed - Continue Atropine daily RIGHT eye - Continue Timolol 2x / day RIGHT EYE documented in this encounter [facility] 08-01-2024 Note HNO ID: [id number] Author: SAVANA LOPEZ MD Service: ? 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 documented in this encounter [facility] 07-30-2024 Note HNO ID: [id number] Author: JOHN PHELAN MD Service: ? Author [...] agree with all of its relevant components. [facility] 07-30-2024 Note HNO ID: [id number] Author: JOHN PHELAN MD Service: ? Author [...] agree with all of its relevant components. [facility] 07-27-2024 Instructions Nicolas Sahu MD - [...] day Ciprofloxacin (flores cap) 4x daily Atropine (director credit risk) 1x daily Continue timolol (yellow [...] C Trouble breathing Contact Dr. Savana Lopez [phone] weekdays from 8am-5pm During non-business hours, please call [phone] or ext [phone] and ask for the eye doctor principal automation engineer. documented in this encounter [facility] 07-27-2024 Note HNO ID: [id number] Author: NICOLAS SAHU MD Service: ? Author [...] scheduled Nicolas Sahu MD Vitreoretinal Surgery Fellow [facility] 07-27-2024 History of Present illness Narrative [...] Vitreoretinal Surgery Fellow documented in this encounter [facility] 07-27-2024 Note HNO ID: [id number] Author: MIKHAIL NICHOLS APRN.RN OPERATING ROOM Service: ? Author Type: Nurse Program Project Manager Type: Anesthesia Procedure Notes Filed: 07/27/2024 11:25 Note Text: ANESTHESIOLOGY PROCEDURE NOTE Airway General Information Procedure Start Time/Medication Administration: 07/27/2024 11:21 AM Procedure End Time: 07/27/2024 11:24 AM Staffing Anesthesiologist: Robinson Brunner MD RN OPERATING ROOM: Mikhail Nichols APRN.RN OPERATING ROOM Performed by: anesthesiologist and RN OPERATING ROOM Indications and Patient Condition Indications for airway management: anesthesia Preoxygenated: yes Patient position: sniffing Method: asleep Final Airway Details Final airway type: supraglottic airway Number of attempts at approach: 1 Final Supraglottic Airway: LMA Classic Size 4 Seal Adequate: yes Failed airway: no Unrecognized esophageal intubation: no SIGNATURE: Mikhail Nichols APRN.RN OPERATING ROOM PATIENT NAME: Mel Castillo DATE: July 27, 2024 TIME: 11:24 AM CSN: [id number] [facility] 07-24-2024 Note Date of Procedure 07/23/2024. Drywaller Information Integrated Logistics Programs Director: WESLEY. Start time: 10:44 AM. No view. In wheelchair. Unable to get low enough for photo in downgaze without discomfort. Notes Hazy view, VH; choroidals; possible RD ZEISS 07-24-2024 Note Date of Procedure 07/23/2024. Drywaller Information STEWART Donovan CDOS 07/23/2024 11:24 AM [...] 20mg - Decrease atropine daily right eye (director credit risk) - Continue prednisolone QID right [...] Pavilion on the first floor at the [facility] [place]. My surgical technology instructor is Gaston, her number is [phone] Please do no wear contact lenses. We [...] retina fellow. It will be at the [facility] on the 2nd floor. We will review [...] Regine Gan in the Pre-anesthesia Consultation Clinic ([phone]) to get instructions on their use before [...] call Regine Gan or a Pre-Anesthesia Testing steam and power supervisor at [phone]. documented in this encounter [facility] 07-23-2024 Note HNO ID: [id number] Author: SAVANA LOPEZ MD Service: ? 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 [facility] 07-23-2024 History of Present illness Narrative [...] to HTN (SBP 199/99 at presentation to [facility]) and anticoagulation that led to angle closure [...] its relevant components. documented in this encounter [facility] 07-18-2024 Note HNO ID: [id number] Author: JACI JUAREZ RN Service: Nursing Author Type: Registered Nurse Type: Progress Notes Filed: 07/18/2024 14:08 Note Text: Report given to nurse at [facility]. Transport running behind schedule. [facility] 07-16-2024 Note HNO ID: [id number] Author: MICHAEL SOARES MD Service: Ophthalmology Author Type: Resident Type: Plan of Care Filed: 07/16/2024 21:02 Note Text: Patient evaluated today at [facility] by retina attending Dr. Lopez. 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 - I will see her in 1 week for repeat B-scan OD / Optos OD" [facility] 07-16-2024 Note HNO ID: [id number] Author: ALAINA TIPTON RN Service: ? Author [...] Doctor Josep, on the division, and aware. [facility] 07-16-2024 Note HNO ID: [id number] Author: TRACEY NANCE RN Service: Care Management Author Type: Registered Nurse Type: Care Mgt Progress Note Filed: 07/16/2024 16:49 Note Text: CARE MANAGEMENT PROGRESS NOTE SERVICE DATE: 07/16/2024 SERVICE TIME: 1:04 PM LOS: 9 days Post-Acute Discharge Planning Patient Goal(s): Increase strength [place] of Choice Explained: Discharge Planning Participant(s): Patient/Family Comments: Anticipated # of Days Until Discharge: 0 Transport at Discharge: Needs Prior to Discharge: Needs Prior to Discharge: OT/PT Evaluation Post-Acute Discharge Plan: Discharge to [facility] per FOC. Await updated PT for pre cert initiation. SIGNATURE: Tracey Nance RN PATIENT NAME: Mel Castillo DATE: July 16, 2024 TIME: 1:04 PM [facility] 07-16-2024 Note Date of Procedure 07/16/2024. Drywaller Information Integrated Logistics Programs Director: Arin Vital. Start time: 8:56 AM. Stop time: 8:56 AM. 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 Drywaller Information STEWART Donovan 07/16/2024 9:34 AM . 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 documented in this encounter [facility] 07-16-2024 Note HNO ID: [id number] Author: SAVANA LOPEZ MD Service: ? 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 [facility] 07-16-2024 Note HNO ID: [id number] Author: BRIANA PRITCHARD MD Service: General Internal [...] AM seen by ophthalmology at [facility] Optho appointment Objective MEDICATIONS: Current Facility-Administered [...] Drain Duration External Collection Device 07/15/24 1000 [facility] <1 day Intake/Output 07/12/24 0700 [...] PMH of COPD (more content not included)... [facility] 07-15-2024 Note HNO ID: [id number] Author: OTILIO GERBER MD Service: Ophthalmology Author [...] to HTN (SBP 199/99 at presentation to [facility]) that caused angle closure and elevated IOP [...] floaters, flashes or changes in peripheral vision. [facility] 07-15-2024 Note HNO ID: [id number] Author: BRIANA PRITCHARD MD Service: General Internal Medicine Author Type: Physician Type: Progress Notes Filed: 07/15/2024 12:59 Note Text: Internal Medicine - Dae Chaudhry Progress Note Patient Name: Mel Castillo [id number] Admission Date: 07/07/2024 Length of Stay: [...] 9.1 9.3 9.3 (more content not included)... [facility] 07-14-2024 Note HNO ID: [id number] Author: BRIANA PRITCHARD MD Service: Hospital Medicine Author Type: Physician Type: Progress Notes Filed: 07/14/2024 13:37 Note Text: Internal Medicine - Dae Chaudhry Progress Note Patient Name: Mel Castillo [id number] Admission Date: 07/07/2024 Length of Stay: [...] Castillo is a (more content not included)... 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 Nicolas Sahu MD Vitreoretinal Surgery Fellow [facility] 07-13-2024 Note HNO ID: [id number] Author: MARCIA MARTINS APRN.RN OPERATING ROOM Service: ? Author Type: Nurse Program Project Manager Type: Anesthesia Procedure Notes Filed: 07/13/2024 12:43 Note Text: ANESTHESIOLOGY PROCEDURE NOTE Airway General Information Procedure Start Time/Medication Administration: 07/13/2024 12:28 PM Procedure End Time: 07/13/2024 12:42 PM Patient location during procedure: OR Timeout Performed Pre-procedure: timeout performed Consent Obtained: Yes Patient identity confirmed: arm band, care steam and power supervisor and patient Staffing RN OPERATING ROOM: Marcia Martins APRN.RN OPERATING ROOM Performed by: RN OPERATING ROOM Indications and Patient Condition Indications for airway management: anesthesia Preoxygenated: yes anesthesia circuit Method: sleep Difficult Mask: No Final Airway Details Final airway type: supraglottic airway Number of attempts at approach: 1 Final Supraglottic Airway: Supraglottic airway: ambu auraonce. Size 4 Seal Adequate: yes Failed airway: no Unrecognized esophageal intubation: no Airway not difficult Comments atraumatic SIGNATURE: Marcia Martins, LINER REROLL TENDER.RN OPERATING ROOM PATIENT NAME: Mel Castillo DATE: July 13, 2024 TIME: 12:42 PM CSN: [id number] [facility] 07-13-2024 Note HNO ID: [id number] Author: FELICIA LEVY MD Service: General Internal [...] of vision now s/p laser iridotomy at [facility] then trasnferred to [facility] for further management. S/p [...] mg ORAL DAILY (more content not included)... [facility] 07-12-2024 Note HNO ID: [id number] Author: TRACEY NANCE RN Service: Care Management Author Type: Registered Nurse Type: Care Mgt Progress Note Filed: 07/12/2024 16:50 Note Text: CARE MANAGEMENT PROGRESS NOTE SERVICE DATE: 07/12/2024 SERVICE TIME: 4:46 PM LOS: 5 days Post-Acute Discharge Planning Patient Goal(s): Increase strength [place] of Choice Explained: Discharge Planning Participant(s): Patient/Family Comments: Anticipated # of Days Until Discharge: 0 Transport at Discharge: Needs Prior to Discharge: Post-Acute Discharge Plan: Await SNF choices spoke w/ daughter in law Fidel Garcia sent to [facility] yesterday. This CM reached out to [facility] via email for choices. Daughter In law cannot recall selections. covering CM will need to reach out to [facility] tomorrow for selections that were emailed to her. SIGNATURE: Tracey Nance RN PATIENT NAME: Mel Castillo DATE: July 12, 2024 TIME: 4:46 PM [facility] 07-12-2024 Note Date of Procedure 07/12/2024. Drywaller Information CHAR Veliz ROUB 07/12/2024 12:15 PM . Notes B scan OD: From wheelchair. Patient vomiting during this visit. Best images possible. 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 Possible increased height maximum now at 12:00 measuring 10.0 mm. 2) Not able to assess for mobility today due to patient discomfort 3) SRF over choroidals in three quadrants. [facility] 07-12-2024 Note Date of Procedure 07/12/2024. Drywaller Information Integrated Logistics Programs Director: JACQUELINE. Imaging Comments: Limited exam due to patient discomfort-best images possible . Notes Worsening choroid detachments [facility] 07-12-2024 Note HNO ID: [id number] Author: THOMAS SCHMITZ MD Service: ? Author [...] choroidals (not yet appositional) - Evaluated at [place] 07/12/24 with intense nausea and multiple episodes [...] to HTN (SBP 199/99 at presentation to [facility]) that caused angle closure and elevated IOP [...] Resident, PGY-[address] Phelan [facility] 07-12-2024 History of Present illness Narrative [...] choroidals (not yet appositional) - Evaluated at [place] 07/12/24 with intense nausea and multiple episodes [...] to HTN (SBP 199/99 at presentation to [facility]) that caused angle closure and elevated IOP [...] with Dr. Phelan documented in this encounter [facility] 07-12-2024 Note HNO ID: [id number] Author: FELICIA LEVY MD Service: General Internal [...] of vision now s/p laser iridotomy at [facility] then trasnferred to [facility] for further management. S/p [...] possible dispo to SNF or home with [facility] (challenging given multiple daily eye drops and medications) - Rest per excellent note by resident Signature: Felicia Levy MD Date: 07/12/2024 Time: 1:27 PM Internal Medicine - Dae Chaudhry Progress Note Patient Name: Mel Castillo Patient Location: [facility] [place] 031/H060-31 Admission Date: 07/07/2024 Length of Stay: [...] ORAL BID HYDROmorpho (more content not included)... [facility] 07-11-2024 Note HNO ID: [id number] Author: FELICIA LEVY MD Service: General Internal [...] of vision now s/p laser iridotomy at [facility] then trasnferred to [facility] for further management. S/p [...] Note Patient Name: Mel Castillo [address] Admission Date: 07/07/2024 Length of Stay: [...] H PRN AL (more content not included)... [facility] 07-10-2024 Note HNO ID: [id number] Author: FELICIA LEVY MD Service: General Internal [...] of vision now s/p laser iridotomy at [facility] then trasnferred to [facility] for further management. S/p [...] Falls/H060-31 Admission Date: 07/07/2024 Length of Stay: 3 [...] Range in last (more content not included)... [facility] 07-09-2024 Note HNO ID: [id number] Author: TRACEY NANCE RN Service: Care Management [...] Current Advance Directive: Health Care Power of Lead Sql Developer In Chart: Yes Up To Date and Valid: Yes Current Living Arrangements and Support Lives with: Alone Type of Residence: Mobile Home Support: Friends/neighbors, Family members How do you manage to accomplish the following: Independent: Ambulation;Bathe/Shower;Dress;Angélica g to the bathroom Needs Assistance: Meals/Meal Prep;Medication Management;Transportation to appointments/community Current Services/Equipment Discharge Planning Patient Goal(s): Increase strength Chester of Choice Explained: [place] of Choice Given: Yes Level of Care Discussed: Home Care Are you interested in bedside delivery of your medications? Yes Discharge Planning Participant(s): Caregiver;Family Patient/Family Comments: Fidel Hdze (Other) Caregiver Assessment: Caregiver is ready, willing and able to meet the patient's needs as recommended by the inter-professional team: (friends) Transport at Discharge: Transportation Arrangements: Car Destination: [id number] [place] [address] [address] [place] [address] Needs Prior to Discharge: Post-Acute Discharge Plan: Anticipate DC home with C 24-48 hours. HC referrals placed . Await OT evaluation. Patient lives alone in trailer , There are 4 steps to entrance, Using rolator prior to admission. Patient independent with ADL and assist with iADL prior to admission.Patient receives meals on wheels. Family transport to appointments and can provide partner marketing intern assist. Family transport home. This CM spoke [...] DATE: July 09, 2024 TIME: 4:07 PM [facility] 07-09-2024 Note HNO ID: [id number] Author: NADIA VIDAL ? Service: Pharmacy Author Type: Pharmacist Intern Type: Plan of Care Filed: 07/09/2024 12:31 Note Text: Insurance investigation completed Patient has active prescription insurance: Yes - Patient's insurance is in-network with [facility] Insurance loaded into [place]: Yes Test claim was completed to verify insurance is active: Successful Any questions, please reach out to your medication dental coordinator. [facility] 07-09-2024 Note HNO ID: [id number] Author: GISSELL POPE RPh Service: Pharmacy Author Type: Pharmacist Type: Plan of Care Filed: 07/09/2024 12:32 Note Text: PHARMACY MEDICATION REVIEW Patient Name: Mel Castillo : 1940 The following medications were updated within the [facility] medication list: Medications ADDED to [facility] medication list Furosemide 40 mg prn swelling Medications CHANGED on [facility] medication list Lisinopril 10 mg changed to 40 mg Increased from 5 mg daily to 40 mg daily on last hospital discharge Medications REMOVED from [facility] medication list Albuterol HFA PRN Lidocaine 4% [...] Yes Completed by: Gissell Pope RPh All [facility] medications addressed by LIP Patient interested in Bedside Delivery Services or using OP Pharmacy at discharge? Yes. Discharge Pharmacy Updated Preferred outpatient pharmacy: [facility]- [id number] [place] [address] [facility] [phone] General Pharmacy [facility] Allergies: Percocet [Oxycodone* Itching [...] Inject 0.7 mL subcutaneously every 12 hours. ntadgphtqph-mzeflvxmq-odjftgsd (TRELEGY ELLIPTA) 100-62.5-25 mcg inhalation powder 07/06/2024 [...] None recorded 1 Gissell Pope [facility] 07/09/2024 [facility] 07-09-2024 Note HNO ID: [id number] Author: OTILIO GERBER MD Service: ? Author [...] Follow up with Dr. Lopez Monday 07/16 [facility] eye clinic -Can continue anticoagulation [...] NLP vision Otilio Gerber MD Ophthalmology Resident [facility] Patient seen and discussed with Dr. Phelan [facility] 07-09-2024 History of Present illness Narrative [...] to HTN (SBP 199/99 at presentation to [facility]) that caused angle closure and elevated IOP [...] Follow up with Dr. Lopez Monday 07/16 [facility] eye clinic -Can continue anticoagulation [...] NLP vision Otilio Gerber MD Ophthalmology Resident [facility] Patient seen and discussed with Dr. Phelan documented in this encounter [facility] 07-09-2024 Note HNO ID: [id number] Author: FELICIA LEVY MD Service: General Internal [...] of vision now s/p laser iridotomy at [facility] then trasnferred to [facility] for further management. S/p [...] Length of Stay: 2 Primary Service: DAE Chuadhry Staff: Feilcia Levy* Primary Service: Dae Chaudhry INTERVAL HISTORY: [...] (ml) -2 350 (more content not included)... [facility] 07-08-2024 Note HNO ID: [id number] Author: FELICIA LEVY MD Service: Hospital Medicine [...] of vision now s/p laser iridotomy at [facility] then trasnferred to [facility] for further management. Plan: [...] Note Patient Name: Mel Castillo [address] Admission Date: 07/07/2024 Length of Stay: 1 Primary Service: DAE Chaudhry Staff: Fleicia Levy* Primary Service: Dae Chaudhry INTERVAL HISTORY: [...] 07/07/24 1853 12/ (more content not included)... [facility] 07-07-2024 Note HNO ID: [id number] Author: JARED GILMORE MD Service: ? Author [...] components. 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 Gilmore documented in this encounter [facility] 07-07-2024 Note [facility] 07-07-2024 Hospital course Narrative Discharge Summary Hospitalist [...] Ellipta 100-62.5-25 MCG/ACT aerosol powder Generic drug: Aqevxrfdrjt-Bqbkwdikd-Ptssir STOP taking these medications albuterol 108 (90 [...] ophthalmic solution Recommended Follow-up: Tre Lombardi MD [address] [place] [address] [address] [facility] [phone] Call in 2 month(s) Need follow up in December 2024 for aneurysm surveillence Complexity of Follow up: [] Moderate Complexity: follow up within 7-14 calendar days (97877) [x] Severe Complexity: follow up within 7 calendar days (92204) - after DC from [facility] Follow up [...] Red Henderson DO Division of Hospitalist Medicine [facility] 07/07/2024, 11:08 AM documented in this encounter [facility] 07-07-2024 Nurse Note Report called to [facility]. [facility] 07-07-2024 Nurse Note Report called to [facility]. This RN called Protective Services to try and locate pts lost glasses from 07/05/2024. Glasses that match the description are in lost and found. Will attempt to see if glasses are a match. documented in this encounter [facility] 07-07-2024 Note Formatting of this n [...] Length of Stay (Days): 0 GMLOS: 2.3 [facility] 07-07-2024 Note Formatting of this n ote might be different from the original. Care Management Progress Note DC plan - Transfer to [facility]. Received message from RN who reports pt has a bed at the [facility] and dc orders to go today and is requesting transportation be set up AIDAN. Transportation set up through roundtrip via cot with [employer] for 10:30am. RN, pt and pt's dtr Fidel notified of dc plan and transportation time. No add'l needs for dc noted or identified at this time. Length of Stay (Days): 0 GMLOS: 2.3 [facility] 07-07-2024 Miscellaneous Notes Care Management Progress Note DC plan - Transfer to [facility]. Received message from RN who reports pt has a bed at the [facility] and dc orders to go today and is requesting transportation be set up AIDAN. Transportation set up through roundtrip via cot with [employer] for 10:30am. RN, pt and pt's dtr [...] is working on this . With staff. [facility] she is agreeable to it [...] - DO NOT do CPR, intubation] [_] [DNR-ELECTRIC FREIGHT CAR OPERATOR - Comfort care only] [_] DNR [...] and/or family/surrogate. Silvio Peres MD Acute care [facility] 07/05/2024, 1:18 PM documented in this encounter [facility] 07-07-2024 History of Present illness Narrative Nutrition rescreen completed. Chart reviewed. Patient to be monitored and followed by the diet r and d lab technician. Images from the original note were not included. PHYSICAL THERAPY [facility] Initial Evaluation Name/MRN: Mel Pop ([id number]) Evaluation Date: 07/06/2024 Date of : 1940 Admission Date: 07/05/2024 4:21 AM Age: 83 y.o. Room/Bed: W3-324/W3-324 A Discharge Recommendation: Assisted Facility Equipment Needed: (tbd) Assessment IMPRESSION: The [...] COPD (chronic obstructive pulmonary disease) ([facility]) DVT (deep venous thrombosis) ([facility]) Essential hypertension 03/07/2020 GERD (gastroesophageal reflux disease) Hiatal hernia IBS (irritable bowel syndrome) Pure hypercholesterolemia 03/07/2020 PVD (peripheral vascular disease) ([facility]) Stroke ([facility]) Past Surgical History: Past Surgical History: [...] vessels of proximal lower extremity ([facility]) 04/14/2024 Peripheral arterial disease ([facility]) 04/03/2024 Immunodeficiency due to conditions classified elsewhere ([facility]) 07/27/2023 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 ([facility]) 07/27/2023 Bilateral pneumonia 06/16/2022 COVID-19 06/16/2022 Hypothyroidism 06/16/2022 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[facility]) 06/16/2022 Cellulitis 05/18/2022 Nicotine use disorder 05/18/2022 Acute venous embolism and thrombosis of deep vessels of proximal end of right lower extremity ([facility]) 04/19/2024 Atrial fibrillation, unspecified type ([facility]) 04/19/2024 Irritable bowel syndrome with diarrhea 03/07/2020 Microscopic hematuria 03/07/2020 Left retinal detachment 03/07/2020 Hyperglycemia 03/07/2020 Osteopenia of left femoral neck 03/07/2020 salvage repairer current use of anticoagulant therapy 03/07/2020 Seasonal allergies 03/07/2020 Chronic renal insufficiency, stage III (moderate) ([facility]) 03/07/2020 Major depression, single episode, in complete remission ([facility]) 03/07/2020 Gastroesophageal reflux disease without esophagitis 03/07/2020 Essential hypertension 03/07/2020 Pure hypercholesterolemia 03/07/2020 Overweight 03/07/2020 Psoriasis 03/07/2020 History of cerebrovascular accident 03/07/2020 Atrial fibrillation ([facility]) 03/07/2020 Chronic obstructive pulmonary disease ([facility]) 03/07/2020 Finger osteomyelitis, right ([facility]) 03/06/2020 Medical Precautions: No active isolations [...] support system of friends and family Active Spring Intern: Prior Level of Function Prior Level of [...] of Care supervision is transferred to a [facility] Therapy Services Physical Therapist. Goals [...] COPD (chronic obstructive pulmonary disease) ([facility]) DVT (deep venous thrombosis) ([facility]) Essential hypertension 03/07/2020 GERD (gastroesophageal reflux [...] Henderson DO Division of Hospitalist Medicine [facility] documented in this encounter [facility] 07-06-2024 Nurse Note This RN called Protective Services to try and locate pts lost glasses from 07/05/2024. Glasses that match the description are in lost and found. Will attempt to see if glasses are a match. [facility] 07-06-2024 Telephone encounter Note TELEPHONE ENCOUNTER 07/06/2024 Patient with recent stroke and admitted to [facility] where she was noted to have elevated IOP with retinal detachment of the right eye by consult central office mechanic. She has a history of RD in [...] optos OU Ryan Elizondo MD Ophthalmology Resident [facility] Work Phone: 07-06-2024 Miscellaneous Notes TELEPHONE ENCOUNTER 07/06/2024 Patient with recent stroke and admitted to [facility] where she was noted to have elevated IOP with retinal detachment of the right eye by consult central office mechanic. She has a history of RD in [...] MD Ophthalmology Resident documented in this encounter [facility] 07-06-2024 Note Formatting of this n [...] is working on this . With staff. [facility] she is agreeable to it if goes home . [facility] 07-06-2024 Note Formatting of this n ote [...] is working on this . With staff. [facility] she is agreeable to it if goes home . [facility] 07-06-2024 Consult note Formatting of th is [...] to a retinal subspecialist at either [facility] or [facility] for repair of retinal detachment right eye (OD). Continue ophthalmic pressure lowering ophthalmic meds right eye (OD) until seen by retinal subspecialist. [employer] Phone: 07-06-2024 Consult note Formatting of th [...] to a retinal subspecialist at either [facility] or [facility] for repair of retinal detachment right [...] days. Associated Order(s): Inpatient consult to Endovascular Neurology--[facility] Inpatient consult to Endovascular Neurology--[facility] Consult performed by: Helga Naki APRN - STORES CLERK Consult ordered by: Wm Nunes DO Reason [...] COPD (chronic obstructive pulmonary disease) ([facility]), DVT (deep venous thrombosis) ([facility]), Essential hypertension (03/07/2020), GERD (gastroesophageal reflux disease), Hiatal hernia, IBS (irritable bowel syndrome), Pure hypercholesterolemia (03/07/2020), PVD (peripheral vascular disease) ([facility]), and Stroke ([facility]). She has no past medical history of Cancer ([facility]) ([facility]), Cerebral artery occlusion with cerebral infarction ([facility]), CHF (congestive heart failure) ([facility]), Diabetes mellitus ([facility]), Hemodialysis patient ([facility]) ([facility]), blood clots, or MDRO (multiple drug [...] Name: Mel Pop Patient : 1940 Acct: [id number] Date of Admission: 07/05/2024 Room/Bed: 60/60 PCP: [...] Historical Provider, ergocalciferol (Vitamin D2) 1.25 MG (65711 UT) capsule Take 1.25 mg by mouth [...] 5 MG tablet Take as directed by [facility] (90 tablets = 90 [...] , Rfl: ergocalciferol (Vitamin D2) 1.25 MG (79490 UT) capsule, Take 1.25 mg by mouth [...] 5 MG tablet, Take as directed by [facility]tico[facility] (90 tablets = 90 [...] motor function: 0=Normal Total: 2 Pre-admission Modified Stratford Score: 1 __ 0 No symptoms at [...] 4:46 AM EST. Report Dictated on Workstation: [employer] Electronically Signed By: Cirilo Ray DR Electronically [...] 4:46 AM EST. Report Dictated on Workstation: [employer] Electronically Signed By: Cirilo Ray DR Electronically [...] this patient's care. documented in this encounter [facility] 07-05-2024 Consult note Formatting of th [...] drops are started. Will continue to follow. [facility] 07-05-[address] Carlson at bedside. [facility] 07-05-[address] Carlson [...] to Maritza FRAGA Emergency Department Encounter Location: [facility] EMERGENCY DEPT Patient: Mel Pop [...] 423 ms QTC Interval 418 ms P [place] 0 degrees QRS [place] 37 degrees T Wave [place] 29 degrees [place] Interval 0 ms Troponin, High Sensitivity, Serial, [...] IV. I discussed with Dr. Peres from [facility] hospitalist service who accepted the [...] Given 07/05/24 0517) I am not the bulk picker of record. Dr. Nunes is the bulk picker of record. Final Impression 1. Vision loss of right eye 2. Acute intractable headache, unspecified headache type DISPOSITION Observation 07/05/2024 01:21:52 PM (Please note that portions of this note may have been completed with a voice recognition program. Efforts were made to edit the dictations but occasionally words are mis-transcribed.) Jhonatan Hernandez MD [facility] [employer] Jhonatan Hernandez MD 07/05/24 1322 documented in this encounter [facility] 07-05-2024 Note Formatting of this n [...] - DO NOT do CPR, intubation] [_] [DNR-ELECTRIC FREIGHT CAR OPERATOR - Comfort care only] [_] DNR form [was/was not] signed Summary of discussion: The patient health care POA/ surrogate is the following: Fidel STAPLETON ([facility]) I answered all the patient/family questions [...] with patient and/or family/surrogate. Silvio Peres MD [facility] [employer] 07/05/2024, 1:18 PM [facility] 07-05-2024 Note Formatting of this n [...] - DO NOT do CPR, intubation] [_] [DNR-ELECTRIC FREIGHT CAR OPERATOR - Comfort care only] [_] DNR form [was/was not] signed Summary of discussion: The patient health care POA/ surrogate is the following: DAYA Fidel Castillo ([facility]) I answered all the patient/family questions [...] with patient and/or family/surrogate. 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 History Obtained From: patient and patient's [id number] HISTORY OF PRESENT ILLNESS: Mel is a [...] COPD (chronic obstructive pulmonary disease) ([facility]) DVT (deep venous thrombosis) ([facility]) Essential hypertension 03/07/2020 GERD (gastroesophageal reflux disease) Hiatal hernia IBS (irritable bowel syndrome) Pure hypercholesterolemia 03/07/2020 PVD (peripheral vascular disease) ([facility]) Stroke ([facility]) Past Surgical History: Past Surgical History: [...] Strain: Low Risk (06/20/2024) Received from [facility] Medical Overall Financial Resource Strain (CARDIA) Difficulty of Paying Living Expenses: Not very hard Food Insecurity: No Food Insecurity (06/20/2024) Received from [facility] Medical Hunger Vital Sign Worried About Running Out of Food in the Last Year: Never true Ran Out of Food in the Last Year: Never true Transportation Needs: No Transportation Needs (07/02/2024) Received from [facility] Transportation Source Has lack of transportation kept you from medical appointments or from getting medications?: No Has lack of transportation kept you from meetings, work, or from getting things needed for daily living?: No Physical Activity: Inactive (04/04/2024) Exercise Vital Sign Days of Exercise per Week: 0 days Minutes of Exercise per Session: 0 min Stress: No Stress Concern Present (06/19/2024) Received from [facility] [place] of Occupational Health - Occupational Stress Questionnaire Feeling of Stress : Not at all Social Connections: Moderately Isolated (06/20/2024) Received from [facility] Social Connection and Isolation Panel [NHANES] [...] Not At Risk (06/19/2024) Received from [facility] Medical Domestic Abuse Assessment Do you feel safe in your relationships at home?: Yes Physical Abuse: Denies [facility] Domestic Abuse - Type of Abuse: Not on file [facility] Domestic Abuse - Time Frame: Not on file [facility] Domestic Abuse - Signs and Symptoms: Not on file Verbal Abuse: Denies [facility] [facility] Domestic Abuse - Reported To: Not on file Housing Stability: Low Risk (06/20/2024) Received from [facility] Housing Stability Vital Sign Unable [...] the evening. ergocalciferol (Vitamin D2) 1.25 MG (51920 UT) capsule Take 1.25 mg by mouth [...] 5 MG tablet Take as directed by [facility] Anticoagulation Clinic (90 tablets = 90 [...] [facility] 1940 [id number] Exam Date/Time: 07/05/2024 11:45 Procedure: MR BRAIN [...] Patient Name: MEL POP : 1940 [facility]#: [id number] Exam Date/Time: 07/05/2024 04:36 Procedure: CT HEAD [...] POP : 1940 [id number] Exam Date/Time: 07/05/2024 04:36 Procedure: CT HEAD [...] Patient Name: MEL POP : 1940 [facility]#: [id number] Exam Date/Time: 07/05/2024 04:36 Procedure: CT PERFUSION [...] meter Result Date: 07/05/2024 Performed by: [facility], [address] [place] [address] CLIA ID: [id number] Assessment / Plan Discussed management with the [...] MD Division of Hospitalist Medicine Acute care [facility] Dictated using [employer] Version 2.4 Proof read however unrecognized voice recognition errors may have occurred [employer] Phone: 07-05-2024 Note [employer] [facility] 07-05-2024 History and physical note Attending History and Physical Admit Date: 07/05/2024 PCP: Jared Evans MD CHIEF COMPLAINT: Loss of vision right eye, headache/eye pain, nausea, eye swelling Reason for Admission: 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 History Obtained From: patient and patient's etprbbra-xo-opu HISTORY OF PRESENT ILLNESS: Mel is a [...] Strain: Low Risk (06/20/2024) Received from [facility] Medical Overall Financial Resource Strain (CARDIA) Difficulty of Paying Living Expenses: Not very hard Food Insecurity: No Food Insecurity (06/20/2024) Received from [facility] Hunger Vital Sign Worried About Running Out of Food in the Last Year: Never true Ran Out of Food in the Last Year: Never true Transportation Needs: No Transportation Needs (07/02/2024) Received from [facility] Transportation Source Has lack of transportation kept you from medical appointments or from getting medications?: No Has lack of transportation kept you from meetings, work, or from getting things needed for daily living?: No Physical Activity: Inactive (04/04/2024) Exercise Vital Sign Days of Exercise per Week: 0 days Minutes of Exercise per Session: 0 min Stress: No Stress Concern Present (06/19/2024) Received from [facility] of Occupational Health - Occupational Stress Questionnaire [...] Not At Risk (06/19/2024) Received from [facility] Domestic Abuse Assessment Do you feel safe in your relationships at home?: Yes Physical Abuse: Denies [facility] Domestic Abuse - Type of Abuse: Not on file [facility] Domestic Abuse - Time Frame: Not on file [facility] Domestic Abuse - Signs and Symptoms: Not on file Verbal Abuse: Denies [facility] Domestic Abuse - Reported To: Not on file Housing Stability: Low Risk (06/20/2024) Received from [facility] Medical Housing Stability Vital Sign [...] the evening. ergocalciferol (Vitamin D2) 1.25 MG (12679 UT) capsule Take 1.25 mg by mouth [...] 5 MG tablet Take as directed by [facility] Anticoagulation Clinic (90 tablets = 90 [...] POP : 1940 [id number] Exam Date/Time: 07/05/2024 11:45 Procedure: MR BRAIN [...] Patient Name: MEL POP : 1940 [facility]#: [id number] Exam Date/Time: 07/05/2024 04:36 Procedure: CT HEAD [...] POP : 1940 [id number] Exam Date/Time: 07/05/2024 04:36 Procedure: CT PERFUSION [...] glucose meter Result Date: 07/05/2024 Performed by: [facility], [address] [place] [address] CLIA ID: [id number] Assessment / Plan Discussed management with the [...] MD Division of Hospitalist Medicine Acute care [facility] Dictated using [employer] Medical Version 2.4 Proof read however unrecognized voice recognition errors may have occurred documented in this encounter [facility] 07-05-2024 Emergency department Note Provider notified of patient request for pain meds. [facility] 07-05-2024 Consult note Associated Order (s): [...] drops to be discontinued after 4 days. [facility] 07-05-2024 Consult note Associated Order (s): Inpatient consult to Endovascular Neurology--[facility] Inpatient consult to Endovascular Neurology--[facility] Consult performed by: Helga Naik APRN - STORES CLERK Consult ordered by: Wm Nunes DO Reason [...] pulmonary disease) (HCC), DVT (deep venous thrombosis) ([facility]), Essential hypertension (03/07/2020), GERD (gastroesophageal reflux disease), Hiatal hernia, IBS (irritable bowel syndrome), Pure hypercholesterolemia (03/07/2020), PVD (peripheral vascular disease) ([facility]), and Stroke ([facility]). She has no past medical history of Cancer ([facility]) ([facility]), Cerebral artery occlusion with cerebral infarction ([facility]), CHF (congestive heart failure) ([facility]), Diabetes mellitus ([facility]), Hemodialysis patient ([facility]) ([facility]), blood clots, or MDRO (multiple drug [...] ., . Personal review of: Imaging,Labs,Old Records},.},. [facility] [employer] Work Phone: 07-05-[address] Carlson at bedside [facility] 07-05-2024 Emergency department Note Patient is returning back to room 32 at this time with Jose, Medic. [facility] 07-05-2024 Emergency department Note Pt currently at eye clinic with RADHA Hinkle for emergent eye laser procedure. [facility] 07-05-2024 Note Pt currently at eye clinic with RADHA Hinkle for emergent eye laser procedure. [facility] 07-05-2024 Emergency department Note Pt emergently going to eye clinic. Pt being transported in wheelchair with trauma float RADHA Hinkle and Maritza FRAGA Pt being transported on zoll monitor and acls kit. [facility] 07-05-2024 Emergency department Note Ophthalmology at bedside [facility] 07-05-2024 Emergency department Note Report to Maritza FRAGA [facility] 07-05-2024 Consult note Associated Order (s): IP CONSULT TO STROKE TEAM STROKE TEAM NOTE Patient Name: Mel Pop Patient : 1940 Acct: [id number] Date of Admission: 07/05/2024 Room/Bed: 60/60 PCP: [...] 03/07/2020 PVD (peripheral vascular disease) ([facility]) Stroke ([facility]) Past Surgical History: Past Surgical History: [...] Historical Provider, ergocalciferol (Vitamin D2) 1.25 MG (31728 UT) capsule Take 1.25 mg by mouth [...] 5 MG tablet Take as directed by [facility] Anticoagulation Clinic (90 tablets = 90 [...] , Rfl: ergocalciferol (Vitamin D2) 1.25 MG (49326 UT) capsule, Take 1.25 mg by mouth [...] 5 MG tablet, Take as directed by [facility] Anticoagulation Clinic (90 tablets = 90 [...] 4:46 AM EST. Report Dictated on Workstation: [employer] Electronically Signed By: Cirilo Ray DR Electronically [...] to be involved in this patient's care. [employer] Phone: 07-05-2024 Physician Emergency department Note Emergency Department Encounter Location: [facility] EMERGENCY DEPT Patient: Mel Pop [...] 423 ms QTC Interval 418 ms P [place] 0 degrees QRS [place] 37 degrees T Wave [place] 29 degrees [place] Interval 0 ms Troponin, High Sensitivity, Serial, [...] IV. I discussed with Dr. Peres from [facility] hospitalist service who accepted the admit. Medications sodium chloride 0.9% (NS) flush 5-40 mL ( IntraVENous Not Given 07/05/24 0580) sodium chloride 0.9% (NS) flush 5-40 mL (has no administration in time range) sodium chloride 0.9 % infusion (has no administration in time range) sodium chloride 0.9 % infusion (50 mL/hr IntraVENous Rate/Dose Verify 07/05/24 3978) labetalol (Normodyne,Trandate) injection 10 mg (has no [...] Given 07/05/24 0517) I am not the bulk picker of record. Dr. Nunes is the bulk picker of record. Final Impression 1. Vision loss of right eye 2. Acute intractable headache, unspecified headache type DISPOSITION Observation 07/05/2024 01:21:52 PM (Please note that portions of this note may have been completed with a voice recognition program. Efforts were made to edit the dictations but occasionally words are mis-transcribed.) Jhonatan Hernandez MD [employer] Jhonatan Hernandez MD 07/05/24 1322 [facility] 06-19-2024 Note HNO ID: [id number] Author: JOSE GONZALEZ tim Service: Pharmacy Author [...] for ICA aneurysm Jose Gonzalez [facility] Pager: Nora/Hailey chat 06/19/2024 1:31 PM [...] ELLIPTA 100-62.5-25 mcg inhalation powder Generic drug: xrscancqdfd-nytejtbyd-awbjevfg VITAMIN C 500 mg tablet Generic drug: [...] [facility] 06-19-2024 Note HNO ID: [id number] Author: ROSLYN ROSE RN Service: Care Management Author Type: Registered Nurse Type: Care Mgt Progress Note Filed: 06/19/2024 13:11 Note Text: CARE MANAGEMENT DISCHARGE NOTE SERVICE DATE: June 19, 2024 SERVICE TIME: 1:10 PM Admission Date: 06/10/2024 LOS: 8 days Discharge Arrangement Discharge Arrangement: Acute Rehabilitation Facility Services Arranged Provider Name: [facility] Caregiver Assessment Caregiver is ready, willing and able to meet the patient's needs as recommended by the inter-professional team: Yes Name of Caregiver: Taylor Muir Transportation Arrangements Transportation Arrangements: Ambulance Transportation Agency and Phone #:: [facility] ( [facility] ) [phone] / [phone] Date of Trip: 06/19/24 Time of Trip: 1800 Type of Service: BLS Non-emergency Cocoa Room Operator Location: [facility] Destination: [facility] Financial Care Management Responsibility: None Handoff Communication: Handoff to: Specialty Service Cashier Specialty Service Cashier Name/Phone: Taylor Muir Additional Information: Patient has insurance precert and is discharging to [facility] today via [facility] cot at 6:00 PM. Spoke with patient at bedside and son José Miguel via phone who are aware and agreeable. Transfer envelope with chart. Care team aware via Epic chat. Discharge Information Row Name ED to Hosp-Admission (Current) from 06/10/2024 in [place] [address] NEURO/CARD Rehab Facility Agency [facility] SIGNATURE: Roslyn Rose RN PATIENT NAME: Mel Castillo DATE: June 19, 2024 TIME: 1:10 PM CONTACT #: [phone] [facility] 06-19-2024 Note HNO ID: [id number] Author: DON EDWARDS DO Service: Hospital Medicine Author Type: Physician Type: Progress Notes Filed: 06/19/2024 12:53 Note Text: DEPARTMENT OF HOSPITAL MEDICINE PROGRESS NOTE SERVICE DATE: 06/19/2024 SERVICE TIME: 10:10 AM Hospital Medicine/Primary Attending: Don Edwards DO NIGHT AND WEEKEND COVERAGE: [place] COVERAGE: From 7am - 7pm, please call [phone] After 7pm, please call cross cover pager #[phone] Subjective INTERVAL HPI: Pt seen and examined. [...] 22 Gauge -- days Peripheral 06/12/24 0427 [facility] Short Right Forearm 20 Gauge [...] now event with subtherapeutic coumadin. Rehab at [facility]. Will need to follow up with neurology [...] June 19, 2024 TIME: 10:10 AM etx [id number] [facility] 06-18-2024 Note HNO ID: [id number] Author: ANABEL VEGA ? Service: Care Management Author Type: ? Type: Care Mgt Progress Note Filed: 06/18/2024 17:18 Note Text: [facility] PRECERT NOTE [employer] MEDICARE PPO approved Inpatient Rehab Facility for [facility]. Precert approved for dates: - 06/26/2024. For any additional questions regarding approvals, transport or care management needs, please contact the CM assigned to this patient in the Treatment Team. SIGNATURE: Anabel Khalil Page DATE: June 18, 2024 TIME: 5:17 PM [facility] 06-18-2024 Note HNO ID: [id number] Author: MARK MINOR DO Service: Hospital Medicine Author Type: Physician Type: Progress Notes Filed: 06/18/2024 16:17 Note Text: DEPARTMENT OF HOSPITAL MEDICINE PROGRESS NOTE SERVICE DATE: 06/18/2024 SERVICE TIME: 4:06 PM Hospital Medicine/Primary Attending: Mark Minor DO NIGHT AND WEEKEND COVERAGE: After 7pm please page [phone] SUBJECTIVE: Patient seen examined at bedside. No [...] now event with subtherapeutic coumadin. Rehab at [facility]. Will need to follow up with neurology [...] [facility] 06-18[facility]2024 Note HNO ID: [id number] Author: ROSLYN ROSE RN Service: Care Management Author Type: Registered Nurse Type: Care Mgt Progress Note Filed: 06/18/2024 12:32 Note Text: CARE MANAGEMENT PROGRESS NOTE SERVICE DATE: 06/18/2024 SERVICE TIME: 9:01 AM LOS: 7 days Chart reviewed. [facility] Will need precert and cot transport. CM to follow for transitional care planning. ADDENDUM at 10:20 AM- Spoke with patient at bedside and provided update on pending precert. Received message from [facility] that insurance is requesting updated PT/OT evals and notified therapy. SIGNATURE: Roslyn Rose RN PATIENT NAME: Mel Castillo DATE: June 18, 2024 TIME: 9:01 AM PAGER/CONTACT #: [phone] [facility] 06-17-2024 Note HNO ID: [id number] Author: DON EDWARDS DO Service: Hospital Medicine Author Type: Physician Type: Progress Notes Filed: 06/17/2024 13:52 Note Text: DEPARTMENT OF HOSPITAL MEDICINE PROGRESS NOTE SERVICE DATE: 06/17/2024 SERVICE TIME: 11:15 AM Hospital Medicine/Primary Attending: Don Edwards DO NIGHT AND WEEKEND COVERAGE: [place] COVERAGE: From 7am - 7pm, please call [phone] After 7pm, please call cross cover pager #[phone] Subjective INTERVAL HPI: Pt seen and examined. [...] 22 Gauge -- days Peripheral 06/12/24 042 [facility] Short Right Forearm 20 Gauge [...] eliquis. She was seen by therapy and [facility] facility was recommended. 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 Rehab at [facility]. Will need to follow up with neurology [...] -- 06/11/24 0730 vte current anticoag therapy (va,ga) 06/11/24 0730 activity - mobilize patient ([place]) VTE Prophylaxis: VTE prophylaxis appropriate Disposition: Acute Rehab Plan of care discussed with: Provider, RN, Patient SIGNATURE: Don Edwards DO PATIENT NAME: Mel Castillo DATE: June 17, 2024 TIME: 11:15 AM etx [id number] [facility] 06-16-2024 Note HNO ID: [id number] Author: DON EDWARDS DO Service: Hospital Medicine Author Type: Physician Type: Progress Notes Filed: 06/16/2024 13:06 Note Text: DEPARTMENT OF HOSPITAL MEDICINE PROGRESS NOTE SERVICE DATE: 06/16/2024 SERVICE TIME: 11:00 AM Hospital Medicine/Primary Attending: Don Edwards DO NIGHT AND WEEKEND COVERAGE: [place] COVERAGE: From 7am - 7pm, please call [phone] After 7pm, please call cross cover pager #[phone] Subjective INTERVAL HPI: Pt seen and examined. [...] 22 Gauge -- days Peripheral 06/12/24 0427 [facility] Short Right Forearm 20 Gauge 4 days Drain Duration Indwelling Urinary Catheter 06/11/24 1535 [facility] [place] 16 Fr 4 days Reviewed lines and needs to be continued: REASONS: Difficulty in obtaining/maintaining access DATA: Diagnostic tests reviewed for today's visit: Most recent labs and imaging results. 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 Rehab at [facility]. Will need to follow up with neurology [...] -- 06/11/24 0730 vte current anticoag therapy (va,[place]) 06/11/24 0730 activity - mobilize patient (va,ga) VTE Prophylaxis: VTE prophylaxis appropriate Disposition: Acute Rehab Plan of care discussed with: Provider, RN, Patient SIGNATURE: Don Edwards DO PATIENT NAME: Mel Castillo DATE: June 16, 2024 TIME: 11:00 AM etx [id number] [facility] 06-15-2024 Note HNO ID: [id number] Author: ERA TELLES MD Service: Hospital Medicine [...] on oxygen Plan for acute rehab at [facility] able to accept. Await precert Plan of care discussed with: Provider, RN, Patient. SIGNATURE: Era Telles MD PATIENT NAME: Mel Castillo DATE: June 15, 2024 TIME: 2:40 PM PAGER: [facility] 06-15-2024 Note HNO ID: [id number] Author: ARIANA MERCER .STORES CLERK Service: Urology Author Type: Nurse Practitioner Type: Plan of Care Filed: 06/15/2024 12:16 Note Text: Urology Plan of Care Note RN reached out asking about a void trial today. Notes pt has bloody urine. Pt seen at bedside. Pt eating lunch. Vanessa urine in tubing at this time. Will place PRN irrigation orders if urine is bloody again. Page urology resident principal automation engineer if urine is grade 4 or higher. [...] Ariana Mercer APRN 06/15/2024 12:11 PM Page principal automation engineer resident with questions [facility] 06-15-2024 Note HNO ID: [id number] Author: ROSLYN ROSE RN Service: Care Management Author Type: Registered Nurse Type: Care Mgt Progress Note Filed: 06/15/2024 09:38 Note Text: CARE MANAGEMENT PROGRESS NOTE SERVICE DATE: 06/15/2024 SERVICE TIME: 9:36 AM LOS: 4 days Chart reviewed. [facility]. Will need precert and cot transport. Will place transfer envelope with chart that has signed portable DNR form attached. CM to follow for transitional care planning. SIGNATURE: Roslyn Rose RN PATIENT NAME: Mel Castillo DATE: June 15, 2024 TIME: 9:36 AM PAGER/CONTACT #: [phone] [facility] 06-14-2024 Note HNO ID: [id number] Author: JENNIFER FERNANDEZ, RADHA Service: Nursing Author Type: Registered Nurse Type: Nursing Progress Note Filed: 06/14/2024 17:35 Note Text: 1610: paged urology for voiding trial awaiting response [facility] 06-14-2024 Note HNO ID: [id number] Author: ERA TELLES MD Service: Hospital Medicine [...] on oxygen Plan for acute rehab at [facility] able to accept. Await precert Plan of care discussed with: Provider, RN, Patient. SIGNATURE: Era Telles MD PATIENT NAME: Mel Castillo DATE: June 14, 2024 TIME: 2:47 PM PAGER: [facility] 06-13-2024 Note HNO ID: [id number] Author: EDIE CASTAÑEDA MD Service: Hospital Medicine Author Type: Physician Type: Progress Notes Filed: 06/13/2024 14:18 Note Text: DEPARTMENT OF HOSPITAL MEDICINE Hospital Medicine/Primary Attending: Edie Castañeda MD NIGHT AND WEEKEND COVERAGE: After 7pm please page [phone] MEDICATIONS: Current Facility-Administered Medications Medication Dose Route [...] interatrial septum. Patient sees Dr. Padilla at [facility]. Cardiology saw patient in hospital, [...] [facility] 06-13-2024 Note HNO ID: [id number] Author: CARLYLE GUZMÁN RN Service: Care Management [...] 13, 2024 TIME: 12:54 PM PAGER/CONTACT #: [phone] [facility] 06-12-2024 Note HNO ID: [id number] Author: SHARONA MCDERMOTT MD Service: Hospital Medicine Author Type: Physician Type: Progress Notes Filed: 06/12/2024 17:08 Note Text: DEPARTMENT OF HOSPITAL MEDICINE Hospital Medicine/Primary Attending: Sharona Mcdermott MD NIGHT AND WEEKEND COVERAGE: After 7pm please page [phone] Saw patient at bedside with friend visiting. [...] interatrial septum. Patient sees Dr. Padilla at [facility]. Cardiology saw patient in hospital, [...] [facility] 06-12-2024 Note HNO ID: [id number] Author: DEBORAH PEACE RN Service: Care Management Author Type: Registered Nurse Type: Care Mgt Progress Note Filed: 06/12/2024 16:10 Note Text: CARE MANAGEMENT PROGRESS NOTE SERVICE DATE: 06/12/2024 SERVICE TIME: 4:09 PM LOS: 1 day [place] of Choice Given: Yes Level of Care Discussed: Inpatient Rehab Facility Financial Disclosure Provided: Yes Provider List: Rehab Facility Provider list within the patient's requested geographic area shared with the patient/family: Yes within: 15 miles of zip code: [address] Quality and resource use metrics shared with the patient that are relevant to the patient's goals of care and treatment preferences:: Yes Spoke with pt about pt/ot recs for acute rehab, pt agreeable to list , [facility] would be foc but pt would like to discuss acute rehab with her ; referral sent to [facility] SIGNATURE: Deborah Peace RN PATIENT NAME: Mel Castillo DATE: June 12, 2024 TIME: 4:09 PM PAGER/CONTACT #: [phone] [facility] 06-12-2024 Note HNO ID: [id number] Author: ANDREEA KING LSW Service: Care Management Author Type: Senior Technical Recruiter Type: Care Mgt Progress Note Filed: 06/12/2024 [...] 12, 2024 TIME: 3:20 PM PAGER/CONTACT #: [phone] [facility] 06-11-2024 Note HNO ID: [id number] Author: CARLYLE GUZMÁN RN Service: Care Management [...] Home Advance Directives Current Advance Directive: None Diversified Crops Supervisor Attempted to Assist with AD Completion: Yes [...] General wellness, Be able to go home [place] of Choice Explained: [place] of Choice Given: No Reason Not Given: [...] family who said she was mostly IND BINDING NICKER and does not endorse any skilled needs at this time. +PCP, +DME, +RX coverage, family to provide DC transportation. Will to continue to follow for transitional care planning. SIGNATURE: Carlyle Guzmán RN PATIENT NAME: Mel Castillo DATE: June 11, 2024 TIME: 3:41 PM CONTACT #: [phone] [facility] 06-11-2024 Note Spoke with Melany Evans's office and she stated that patient is scheduled in their office tomorrow, 06/12 for INR check. I faxed her out last progress note. I will inactivate patient from our service. [facility] 05-21-2024 History of Present illness Narrative INR reported on by Christin with [facility]. Christin can be reached at [phone] with questions. Images from the original note were not included. [facility] Anticoagulation Management Service ([facility]) Anticoagulation Clinic [address] [place] [address], [address], [place] [address] Subjective TYSON Mel (1940) had INR completed [...] PharmD, BCACP, CACP documented in this encounter [facility] 05-09-2024 History of Present illness Narrative Graciela from [facility] called in results. Images from the original note were not included. [facility] Anticoagulation Management Service ([facility]) Anticoagulation Clinic [address] [place] [address], [address], [place] [address] Subjective HPI Mel (1940) had INR completed [...] positive findings Mel was instructed to notify [facility] of any unusual bruising or active/uncontrollable bleeding, medication changes within 24 hours, missed doses, dietary changes, illnesses or hospitalizations, and upcoming surgeries. Patient given verbal instructions. Patient expressed understanding utilizing the teach back method. Time spent 10 Minutes JOSE ANGEL Perez, PharmD, BCPS documented in this encounter [facility] [employer] 05-01-2024 History of Present illness Narrative [facility]- [phone] Images from the original note were not included. [facility] Anticoagulation Management Service ([facility]) Anticoagulation Clinic [address] [place] [address], [address], [place] [address] Subjective TYSON Choi (1940) had INR completed [...] 5 mg daily Next INR Check: 05/08/2024 [facility] Patient educated on the following: dietary/lifestyle considerations and Vitamin K content and consistency Patient care coordination completed: N/A Patient given verbal instructions. Patient expressed understanding utilizing the teach back method. Time spent 10 Minutes Won Tipton RN staffed with Nidia TolbertD, BCACP, CACP documented in this encounter [facility] 04-27-2024 Telephone encounter Note Pt requested refill on warfarin 5mg. Sent to [facility]. Receipt confirmed by pharmacy. [facility] 04-27-2024 Miscellaneous Notes Pt requested refill on warfarin 5mg. Sent to [facility]. Receipt confirmed by pharmacy. documented in this encounter [facility] 04-25-2024 History of Present illness Narrative [...] any significant pain. She is following with [facility] clinic for Warfarin, switched from Eliquis. [...] tablet (5mg) on 04/15 Follow up with [facility] pharmacy for further dosing 04/13/24 Jordin [...] min Stress: No Stress Concern Present (04/04/2024) [place] [employer] - Occupational Stress Questionnaire [...] thrombectomy -Recovering well -Recommend continuing warfarin per [facility] clinic -Continue to elevate as needed. [...] (around 07/26/2024). . documented in this encounter [facility] 04-19-2024 History of Present illness Narrative Graciela with [facility] reports INR on vm Graciela can be reached at [phone] with any questions. Images from the original note were not included. [facility] Anticoagulation Management Service ([facility]) Anticoagulation Clinic [address], [address], [place] [address] Megan Choi (1940) had INR completed by [...] Perez, PharmD, BCPS documented in this encounter [facility] 04-14-2024 History of Present illness Narrative Placed new order for POCT INR, [facility] had not received. documented in this encounter [facility] 04-14-2024 Miscellaneous Notes Addended by: PATTY DUGGAN on: 04/16/2024 07:01 AM Modules accepted: Orders Addended by: HARMONY GREY on: 04/16/2024 08:41 AM Modules accepted: Orders documented in this encounter [facility] 04-14-2024 Note Addended by: PATTY DUGGAN on: 04/16/2024 07:01 AM Modules accepted: Orders [facility] 04-14-2024 Note Addended by: HARMONY GREY on: 04/16/2024 08:41 AM Modules accepted: Orders [facility] 04-14-2024 Note Addended by: PATTY DUGGAN on: 04/16/2024 07:01 AM Modules accepted: Orders [facility] 04-14-2024 Note Addended by: HARMONY GREY on: 04/16/2024 08:41 AM Modules accepted: Orders [facility] 04-14-2024 Note Addended by: PATTY DUGGAN on: 04/16/2024 07:01 AM Modules accepted: [facility] 04-14-2024 Note Addended by: HARMONY GREY on: 04/16/2024 08:41 AM Modules accepted: [facility] 04-13-2024 Nurse Note AVS explained. Discharged patient on stable condition. [facility] 04-13-2024 Nurse Note AVS explained. Discharged patient on stable condition. Instructed patient on warfarin dosing, she will take 7.5mg tomorrow, and 5mg Tuesday, and then we will check INR with home care on Tuesday as instructed. NO changes to heparin infusion at this time. documented in this encounter [facility] 04-13-2024 Nurse Note Instructed patient on warfarin dosing, she will take 7.5mg tomorrow, and 5mg Tuesday, and then we will check INR with home care on Tuesday as instructed. [facility] 04-13-2024 Note Formatting of this n ote might be different from the original. Phone conversation with the patient at their request from the [facility] regarding her established home care. Patient was wondering what services were being provided and what expectations to have for HHC. I explained her current ordered services and she stated she understood. Patient then asked if she could have meals delivered. I explained I would reach out to her social work associate here at the hospital for further guidance on resources when she gets home. Secure chat sent to [facility] regarding this. [facility] 04-13-2024 Note Formatting of this n ote might be different from the original. Phone conversation with the patient at their request from the [facility] regarding her established home care. Patient was wondering what services were being provided and what expectations to have for HHC. I explained her current ordered services and she stated she understood. Patient then asked if she could have meals delivered. I explained I would reach out to her social work associate here at the hospital for further guidance on resources when she gets home. Secure chat sent to [facility] [place] regarding this. [facility] 04-13-2024 Miscellaneous Notes Phone conversation with the patient at their request from the [facility] regarding her established home care. Patient was wondering what services were being provided and what expectations to have for HHC. I explained her current ordered services and she stated she understood. Patient then asked if she could have meals delivered. I explained I would reach out to her social work associate here at the hospital for further guidance on resources when she gets home. Secure chat sent to [facility] regarding this. Images from the original note were not included. Care Management Progress Note INR 2.3 today. Hep drip continued, plan to DC to [facility] today. Plan to have PT seen patient today per her request. Patient is active with [facility]. Await treatment plan and clinical progress. wildlife manager will continue to follow for transitional [...] discharge. Await treatment plan and clinical progress. wildlife manager will continue to follow for transitional care needs for discharge planning. Discharge Milestones and Delays Expected date/time: 04/13/2024 Expected discharge disposition: Home Health Services Discharge Milestones Place discharge order Complete med reconciliation Case mgmt discharge readiness Clinical Stability Diagnostic Workup Alternative Energy Technician Recommendations Facility Choice Selection Imaging Results PT [...] discharge. Await treatment plan and clinical progress. wildlife manager will continue to follow for transitional [...] discharge. Await treatment plan and clinical progress. wildlife manager will continue to follow for transitional care needs for discharge planning. Discharge Milestones and Delays Expected date/time: 04/11/2024 Expected discharge disposition: Home or Self Care Discharge Milestones Place discharge order Complete med reconciliation Case mgmt discharge readiness Clinical Stability Diagnostic Workup Alternative Energy Technician Recommendations Facility Choice Selection Imaging Results Patient [...] vasc consult" 04/06/2024 Bernie Cutler APRN - STORES CLERK 04/04/2024 4:04 AM 04/06/2024 Bernie Cutler APRN - STORES CLERK 04/03/2024 11:17 PM Length of Stay (Days): 7 GMLOS: 4 Images from the original note were not included. Care Management Progress Note Remains on heparin gtt while transitioning to coumadin. Consult Hemology. Pt active with [facility]- will continue services at discharge. Await treatment plan and clinical progress. wildlife manager will continue to follow for transitional care needs for discharge planning. Discharge Milestones and Delays Expected date/time: 04/10/2024 Expected discharge disposition: Home or Self Care Discharge Milestones Place discharge order Complete med reconciliation Case mgmt discharge readiness Clinical Stability Diagnostic Workup Alternative Energy Technician Recommendations Facility Choice Selection Imaging Results Patient [...] vasc consult" 04/06/2024 Bernie Cutler APRN - STORES CLERK 04/04/2024 4:04 AM 04/06/2024 Bernie Cutler APRN - STORES CLERK 04/03/2024 11:17 PM Length of Stay (Days): [...] vasc consult" 04/06/2024 Bernie Cutler APRN - STORES CLERK 04/04/2024 4:04 AM 04/06/2024 Bernie Cutler APRN - STORES CLERK 04/03/2024 11:17 PM Length of Stay (Days): 3 GMLOS: 3.1 Patient report called to 4N RN and denies any further questions. Patient resting comfortably and no signs of distress. Per resident patient to lay flat for 2 hours and restart heparin GTT at 1215. Transport notified. SW assisted patient with completion of Health Care Power of Lead Sql Developer. One copy placed in patient chart, one copy sent to medical records and two copies given to patient. Requested by patient, while at bedside this SW spoke to patient's son via patients phone to explain that HCPOA was being completed by patient. Patients son José Miguel Castillo ([phone]) agreed to be this patients agent on [...] technique was used to place a 5 [address] Lucian sheath. A Tacit Innovationsson wire was able to be advanced in the inferior vena cava without difficulty. The 5 [place] Lucian sheath was then upsized to a 16 [place] Lucian sheath and the penumbra flash suction thrombectomy device was prepared per returned goods repairer's instructions. The patient was also given 5000 units of heparin for systemic anticoagulation at this time. The Penumbra device was then inserted through the 16 [place] Lucian sheath and a suction thrombectomy was performed [...] device was removed as was the 16 [place] Lucian sheath and an 0 silk suture was [...] Blankenship MD Vascular Surgery Date: 04/06/2024 Location: [facility] OR Name: Mel Pop, : 1940, Diagnosis Pre-op Diagnosis * Right leg DVT (HCC) [I82.401] Post-op Diagnosis * Right leg DVT (HCC) [I82.401] Procedures RIGHT LOWER EXTREMITY VENOUS MECHANICAL THROMBECTOMY 28502 - MO PRQ TRANSLUMINAL MECHANICAL THROMBECTOMY VEIN Surgeons * Kristyn Blankenship - Primary Procedure Summary Anesthesia: General ASA: III Estimated Blood Loss: 300 mL Drains: * None in log * Staff: Sr. Manager: Negrita Elizabeth RN; Amira Burton RN Scrub [...] from home alone- indep and active with [facility]- will return. Discharge Milestones and Delays [...] Limits Permission given to speak with patient international account representative/caregiver as indicated: Confirmation of Payer with [...] home alone and indep. Pt active with [facility]- liaison following for continued services. Pt uses walker/cane at baseline. Pt has insurance, PCP and able to obtain meds. Pt's friends help with transportation. No needs antic at discharge. Virginia Rehman RN Start PACC Note Home Health Referral Educated patient on Home Care and services available. Patient offered choice of available HHC and agreeable to SN/PT services with [facility]. Care [...] is noted as yes - consider a BAIL BOND AGENT evaluation once the patient returns home. START PATIENT REGISTRATION INFORMATION Order Information Order Signing Physician: Robert Vigil MD Service Ordered RN ?: Yes Service Ordered PT ?: Yes Service Ordered OT ?: No Service Ordered ST ?: No Service Ordered BAIL BOND AGENT?:No Service Ordered CUSTOMS INSPECTOR?: No Following Physician: Jared Evans MD Following Physician Overseeing Physician: Jared Evans MD (Required for Residents only) Agreeable to Follow? Yes Date/Time of Call 04/04/24 11:36 AM, Spoke with: Patient is a DEB. Care Coordination Same Day SOC?: No Primary Care Physician: Jared Evans MD Primary Care Physician Primary Care Physician [address] [place] [address] Visit Instructions: N/A Service Discharge Location Type: Home with Home Care Service Facility Name: N/A Service Floor Facility: N/A Service Room No: N/A Demographics Patient Last Name: Jose Alberto Patient First Name: Mel Language/Communication Barrier: none [facility] [address] [address] [address] Service City: [facility] ST: [place] Service ZIP: [address] Service Other phone numbers: Telephone Information: Emergency [...] Caregiver Phone Number: na Caregiver Notes: N/A [employer]-Crowdvance List No END PATIENT REGISTRATION INFORMATION Pt [...] intervention. Discharge Date: pending Referral Source-PACC: (Hospital/Unit): [facility] / N4-461/N4-461 B End PACC Note The patient is Moderately Stable - Low risk of patient condition declining or worsening The patient's goals for the shift include safety The clinical goals for the shift include therapeutic aptt Patient is currently active with [facility]. The patients current certification period will on 05/18/24. The patient is currently receiving PT services through the agency. Air Filler to continue to follow. ADVANCED CARE PLANNING Mel Pop : 1940 Primary Care Physician: Jared Evans MD The patient and/or family/surrogate voluntarily agreed to participate in ACP services. Patient s cognitive capacity: intact Code Status: [ ] [FULL CODE - Continue all advanced life support: CPR,intubation,invasive procedures] [X] [DNR-CCA - DO NOT do CPR, intubation] [_] [DNR-ELECTRIC FREIGHT CAR OPERATOR - Comfort care only] [_] DNR [...] and/or family/surrogate. Pratibha Avelar DO Acute care [facility] 04/04/2024, 5:40 AM The patient is Moderately Stable - Low risk of patient condition declining or worsening The patient's goals for the shift include met The clinical goals for the shift include met Over the shift, the patient did not make progress toward the following goals. Barriers to progression include . Recommendations to address these barriers include . documented in this encounter [facility] 04-13-2024 Note [facility] 04-13-2024 Hospital course Narrative Discharge Summary Mel Pop : 1940 ADMIT DATE: 04/03/2024 DISCHARGE DATE: 04/13/2024 PRIMARY CARE PHYSICIAN: Jared Evans VISIT STATUS: Admission CODE STATUS: DNR-CCA DISCHARGE DIAGNOSES: Principal Problem: Peripheral arterial disease (HCC) Bilateral lower extremity DVTs RLE thrombectomy HOSPITAL COURSE: 83-year-old woman with history of A-fib on Eliquis, tobacco use, hypertension, hyperlipidemia, asthma, hiatal hernia, GERD presented to [facility] on 04/03 with right leg pain, numbness, tingling causing difficulty ambulating. CTA of lower extremity showed severe atherosclerotic disease with bilateral superficial femoral artery occlusion and transferred to [facility]. She underwent venous thrombectomy with vascular surgery and was initiated on warfarin bridging with heparin. [facility] followed and managed bridging anticoagulation. Pt reported feeling improvement from day to day. Though she was concerned that being stuck in the hospital will debilitate her.Her INR was therapeutic on 04/13. [facility] recommended transition to Warfarin alternating 5mg/7.5mg dosing and close OP follow up for INR check. SIGNIFICANT DIAGNOSTIC STUDIES: BLE Duplex CONSULTANTS: Vascular surgery Pharmacy RECOMMENDED NEXT STEPS: Follow up with [facility] clinic and vascular DISCHARGE MEDICATIONS: Medication [...] tablet (5mg) on 04/15 Follow up with [facility] pharmacy for further dosing CONTINUE taking these medications albuterol 108 (90 Base) MCG/ACT inhaler ascorbic acid 500 MG tablet Commonly known as: Vitamin C lisinopril 5 MG tablet pantoprazole 40 MG EC tablet Commonly known as: ProtoNix Trelegy Ellipta 100-62.5-25 MCG/ACT aerosol powder Generic drug: Pyurieblxmb-Dfkbkqamo-Pjpyxe STOP taking these medications Eliquis 5 MG tablet Generic drug: apixaban Where to Get Your Medications These medications were sent to [facility] [address] [place] [id number] Hours: Tuesday to Tuesday 10 am to 6 pm oxyCODONE 5 MG immediate release tablet warfarin 5 MG tablet DIET: Adult diet Regular ACTIVITY: No restriction. COMPLEXITY OF FOLLOW UP: [x] Moderate Complexity: follow up within 7-14 calendar days (57591) [] Severe Complexity: follow up within 7 calendar days (61373) FOLLOW UP TESTING, PENDING RESULTS OR REFERRALS AT TRANSITIONAL CARE VISIT: [] Yes [x] No PENDING STUDIES: none DISPOSITION: Home with Home Health Care FACILITY/HOME CARE AGENCY NAME: [facility] Follow up with Kristyn Blankenship MD [address] [place] [address] [address] [place] [id number] Schedule an appointment as soon as possible for a visit [facility] clinic for INR check next week [...] 04/13/2024, 2:20 PM documented in this encounter [facility] 04-13-2024 History of Present illness Narrative Images from the original note were not included. PHYSICAL THERAPY [facility] Treatment Note Name/MRN: Mel Pop ([id number]) Date of : 1940 Age: 83 y.o. [...] 1045 Minutes 13 (Gait) Christin Gu PT [facility] Anticoagulation Management Service ([facility]) Inpatient Warfarin Consult HPI: Mel Pop is a 83 y.o. female admitted on 04/03/2024 for Peripheral arterial disease (HCC). Past Medical History: Diagnosis Date Asthma Essential hypertension 03/07/2020 GERD (gastroesophageal reflux disease) Hiatal hernia Pure hypercholesterolemia 03/07/2020 Patient is newly referred to the [facility] clinic for warfarin management. Pt was referred by Anthony Yee APRN - STORES CLERK. Pt is on warfarin for DVT and [...] PharmD [facility] Consult Service is available daily [phone] via Doormen. Secure Chat. If no response, please page [phone]. Hospitalist Progress Note 04/13/2024 Subjective: Admit Date: 04/03/2024 PCP: Jared Evans MD Room#: N4-461/N4-461 B BRIEF HOSPITAL COURSE: 83-year-old woman with history of A-fib on Eliquis, tobacco use, hypertension, hyperlipidemia, asthma, hiatal hernia, GERD presented to [facility] on 04/03 with right leg pain, numbness, tingling causing difficulty ambulating. CTA of lower extremity showed severe atherosclerotic disease with bilateral superficial femoral artery occlusion and transferred to [facility]. She underwent venous thrombectomy with vascular surgery and was initiated on warfarin bridging with heparin. [facility] followed and managed bridging anticoagulation. Pt reported [...] person, place, and time. Medications: Scheduled PRN Gnqtkqubtnr-Senkiocwe-Yusnsg, 1 puff, Inhalation, Daily influenza, 0.5 mL, [...] hyperlipidemia, asthma, hiatal hernia, GERD presented to [facility] on 04/03 with right leg pain, numbness, tingling causing difficulty ambulating. CTA of lower extremity showed severe atherosclerotic disease with bilateral superficial femoral artery occlusion and transferred to [facility]. She underwent venous thrombectomy with [...] person, place, and time. Medications: Scheduled PRN Ynksiizreuw-Qklufdxqf-Unjzfq, 1 puff, Inhalation, Daily influenza, 0.5 mL, [...] Roldan MD Division of Hospitalist Medicine [facility] Anticoagulation Management Service ([facility]) Inpatient Warfarin Consult HPI: Mel Pop is a 83 y.o. female admitted on 04/03/2024 for Peripheral arterial disease (HCC). Past Medical History: Diagnosis Date Asthma Essential hypertension 03/07/2020 GERD (gastroesophageal reflux disease) Hiatal hernia Pure hypercholesterolemia 03/07/2020 Patient is newly referred to the [facility] clinic for warfarin management. Pt was [...] PharmD [facility] Consult Service is available daily [phone] via Doormen. Secure Chat. If no response, please page [phone]. Images from the original note were not included. OCCUPATIONAL THERAPY [facility] Initial Evaluation Name/MRN: Mel Pop ([id number]) Evaluation Date: 04/11/2024 Date of : 1940 Admission Date: 04/03/2024 5:47 PM Age: 83 y.o. 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/16/2022 Cellulitis 05/18/2022 Nicotine use disorder 05/18/2022 Irritable bowel syndrome with diarrhea 03/07/2020 Microscopic hematuria 03/07/2020 Left retinal detachment 03/07/2020 Hyperglycemia 03/07/2020 Osteopenia of left femoral neck 03/07/2020 salvage repairer current use of anticoagulant therapy 03/07/2020 Seasonal allergies 03/07/2020 Chronic renal insufficiency, stage III (moderate) ([facility]) 03/07/2020 Major depression, single episode, in complete remission ([facility]) 03/07/2020 Gastroesophageal reflux disease without esophagitis 03/07/2020 Essential hypertension 03/07/2020 Pure hypercholesterolemia 03/07/2020 Overweight 03/07/2020 Psoriasis 03/07/2020 History of cerebrovascular accident 03/07/2020 Atrial fibrillation ([facility]) 03/07/2020 Chronic obstructive pulmonary disease ([facility]) 03/07/2020 Finger osteomyelitis, right ([facility]) 03/06/2020 Medical Precautions: No active isolations [...] Responsibilities: Independent Receives Help From: None Active Spring Intern: Yes Prior Level of Function ADL Assistance: [...] of Care supervision is transferred to a [facility] Therapy Services Occupational Therapist. Goals and/or treatment plan was established in collaboration with patient/family/other representatives. Hospitalist Progress Note 04/11/2024 Subjective: Admit Date: 04/03/2024 PCP: Jared Evans MD Room#: N4-461/N4-461 B BRIEF HOSPITAL COURSE: 83-year-old woman with history of A-fib on Eliquis, tobacco use, hypertension, hyperlipidemia, asthma, hiatal hernia, GERD presented to [facility] on 04/03 with right leg pain, numbness, tingling causing difficulty ambulating. CTA of lower extremity showed severe atherosclerotic disease with bilateral superficial femoral artery occlusion and transferred to [facility]. She underwent venous thrombectomy with [...] person, place, and time. Medications: Scheduled PRN Ikesxxmiyvn-Twdtonkqu-Kophoa, 1 puff, Inhalation, Daily influenza, 0.5 mL, [...] Roldan MD Division of Hospitalist Medicine [facility] Images from the original note were not included. PHYSICAL THERAPY [facility] Initial Evaluation Name/MRN: Mel Pop ([id number]) Evaluation Date: 04/11/2024 Date of : 1940 Admission Date: 04/03/2024 5:47 PM Age: 83 y.o. Room[facility]Bed: N4461/[facility] B Discharge Recommendation: Home with Home [...] 03/07/2020 Osteopenia of left femoral neck 03/07/2020 half-way current use of anticoagulant therapy 03/07/2020 Seasonal allergies 03/07/2020 Chronic renal insufficiency, stage III (moderate) ([facility]) 03/07/2020 Major depression, single episode, in complete remission ([facility]) 03/07/2020 Gastroesophageal reflux disease without esophagitis 03/07/2020 Essential hypertension 03/07/2020 Pure hypercholesterolemia 03/07/2020 Overweight 03/07/2020 Psoriasis 03/07/2020 History of cerebrovascular accident 03/07/2020 Atrial fibrillation ([facility] [facility]2020 Chronic obstructive pulmonary disease ([facility]) 03/07/2020 Finger osteomyelitis, right ([facility]) 03/06/2020 Medical Precautions: No active isolations [...] of Care supervision is transferred to a [facility] Therapy Services Physical Therapist. Goals and/or treatment plan was established in collaboration with patient/family/other representatives. [facility] Anticoagulation Management Service ([facility]) Inpatient [...] and adjust dose accordingly. 3. Will facilitate [facility] follow-up upon discharge. Patient is agreeable to [facility] follow up. 4. Provided warfarin education. Marybeth Rahman RPh, PharmD [facility] Consult Service is available daily [phone] via [employer]. If no response, please page [phone]. Hospitalist Progress Note 04/10/2024 Subjective: Admit Date: 04/03/2024 PCP: Jared Evans MD Room#: N4-461/N4-461 B BRIEF HOSPITAL COURSE: 83-year-old woman with history of A-fib on Eliquis, tobacco use, hypertension, hyperlipidemia, asthma, hiatal hernia, GERD presented to [facility] on 04/03 with right leg pain, numbness, tingling causing difficulty ambulating. CTA of lower extremity showed severe atherosclerotic disease with bilateral superficial femoral artery occlusion and transferred to [facility]. She underwent venous thrombectomy with [...] Roldan MD Division of Hospitalist Medicine [facility] Nutrition update completed. Chart reviewed. Patient to be monitored and followed by the diet r and d lab technician. FADI Farrar [facility] Anticoagulation Management Service ([facility]) Inpatient [...] Will determine if pt is agreeable to [facility] follow-up. 4. Will provide warfarin education. Marybeth Rahman RPh, PharmD [facility] Consult Service is available daily [phone] via [employer] Secure Chat. If no response, please page [phone]. Hospitalist Progress Note 04/09/2024 Assessment/Plan: Data: (CAT1) [...] Date: 04/03/2024 PCP: Jared Evans MD Room#: N4-721/N4-750 B Brief Hospital course: Patient is an 83-year-old female with history of A-fib on Eliquis, significant tobacco use, HTN, HLD, asthma, hiatal hernia, GERD who presented to [facility] 04/03 with right leg pain, numbness, tingling causing difficulty ambulating. CTA of LE, showing severe LE atherosclerotic disease with bilateral superficial femoral artery occlusion, and was transferred to [facility] for admission. Interval History: Mild [...] Vigil MD Division of Hospitalist Medicine [facility] Anticoagulation Management Service ([facility]) Inpatient Warfarin Consult HPI: Mel Pop is a 83 y.o. female admitted on 04/03/2024 for Peripheral arterial disease (HCC). Past Medical History: Diagnosis Date Asthma Essential hypertension 03/07/2020 GERD (gastroesophageal reflux disease) Hiatal hernia Pure hypercholesterolemia 03/07/2020 Patient is newly referred to the [facility] clinic for warfarin management. Pt was [...] PharmD [facility] Consult Service is available daily [phone] via [employer]. If no response, please page [phone]. Hospitalist Progress Note 04/08/2024 Assessment/Plan: Data: (CAT1) [...] asthma, hiatal hernia, GERD who presented to [facility] 04/03 with right leg pain, numbness, tingling causing difficulty ambulating. CTA of LE, showing severe LE atherosclerotic disease with bilateral superficial femoral artery occlusion, and was transferred to [facility] for admission. Interval History: Pain [...] Vigil MD Division of Hospitalist Medicine [facility] Anticoagulation Management Service ([facility]) Inpatient Warfarin Consult HPI: Mel Pop is a 83 y.o. female admitted on 04/03/2024 for Peripheral arterial disease (HCC). Past Medical History: Diagnosis Date Asthma Essential hypertension 03/07/2020 GERD (gastroesophageal reflux disease) Hiatal hernia Pure hypercholesterolemia 03/07/2020 Patient is newly referred to the [facility] clinic for warfarin management. Pt was [...] Will determine if pt is agreeable to [facility] follow-up. 4. Will provide warfarin education. Michelle Lugo RPh, PharmD [facility] Consult Service is available daily [phone] via [employer] Secure Chat. If no response, please page [phone]. Hospitalist Progress Note 04/07/2024 Assessment/Plan: Data: (CAT1) [...] Anticipate DC pending clinical improvement and pain., Alternative Energy Technician recommendations, Coumadin bridge with heparin Total time [...] asthma, hiatal hernia, GERD who presented to [facility] 04/03 with right leg pain, numbness, tingling causing difficulty ambulating. CTA of LE, showing severe LE atherosclerotic disease with bilateral superficial femoral artery occlusion, and was transferred to [facility] for admission. Interval History: Pain [...] Vigil MD Division of Hospitalist Medicine [facility] Anticoagulation Management Service ([facility]) Inpatient Warfarin Consult HPI: Mel Pop is a 83 y.o. female admitted on 04/03/2024 for Peripheral arterial disease (HCC). Past Medical History: Diagnosis Date Asthma Essential hypertension 03/07/2020 GERD (gastroesophageal reflux disease) Hiatal hernia Pure hypercholesterolemia 03/07/2020 Patient is newly referred to the [facility] clinic for warfarin management. Pt was [...] PharmD [facility] Consult Service is available daily [phone] via [employer] Secure Chat. If no response, please page [phone]. Department of General Surgery Daily Progress Note [...] George Sarah MD PGY5, General Surgery Pager #[phone] CDI Query Response: Acute thrombus within the [...] Anticipate DC pending clinical improvement and pain., Alternative Energy Technician recommendations, Coumadin bridge with heparin Total time [...] asthma, hiatal hernia, GERD who presented to [facility] 04/03 with right leg pain, numbness, tingling causing difficulty ambulating. CTA of LE, showing severe LE atherosclerotic disease with bilateral superficial femoral artery occlusion, and was transferred to [facility] for admission. Interval History: Has [...] Emergency Contact Information Primary Emergency Contact: Damaris Villafaan Mobile Relation: Friend Secondary Emergency Contact: José Miguel Castillo/ Fidel Mobile Relation: Child Robert Vigil MD Division of Hospitalist Medicine [facility] Department of General Surgery Daily Progress Note [...] questions have been answered to their satisfaction. [facility] Anticoagulation Management Service ([facility]) Inpatient Warfarin Consult HPI: Mel Pop is a 83 y.o. female admitted on 04/03/2024 for Peripheral arterial disease (HCC). Past Medical History: Diagnosis Date Asthma Essential hypertension 03/07/2020 GERD (gastroesophageal reflux disease) Hiatal hernia Pure hypercholesterolemia 03/07/2020 Patient is newly referred to the [facility] clinic for warfarin management. Pt was [...] Will determine if pt is agreeable to [facility] follow-up 4. Will provide warfarin education. Marybeth Rahman RPh, PharmD [facility] Consult Service is available daily [phone] via Epic Secure Chat. If no response, please page [phone]. Hospitalist Progress Note 04/05/2024 Assessment/Plan: Data: (CAT1) [...] Discharge Disposition: Anticipate DC pending clinical improvement, oim consultant recommendations Total time spent (which include [...] asthma, hiatal hernia, GERD who presented to [facility] 04/03 with right leg pain, numbness, tingling causing difficulty ambulating. CTA of LE, showing severe LE atherosclerotic disease with bilateral superficial femoral artery occlusion, and was transferred to [facility] for admission. Interval History: Had [...] Vigil MD Division of Hospitalist Medicine [facility] Nutrition rescreen completed. Chart reviewed. Patient to be monitored and followed by the diet r and d lab technician. FADI Harmon [facility] Anticoagulation Management Service ([facility]) Inpatient Warfarin Consult HPI: Mel Pop is a 83 y.o. female admitted on 04/03/2024 for Peripheral arterial disease (HCC). Past Medical History: Diagnosis Date Asthma Essential hypertension 03/07/2020 GERD (gastroesophageal reflux disease) Hiatal hernia Pure hypercholesterolemia 03/07/2020 Patient is newly referred to the [facility] clinic for warfarin management. Pt was [...] Will determine if pt is agreeable to [facility] follow-up 4. Will provide warfarin education. Thank you for this consult Patty Duggan RPh, PharmD [facility] Consult Service is available daily [phone] via [employer] Secure Chat. If no response, please page [phone]. Department of General Surgery Daily Progress Note [...] Naik MD General Surgery PGY-4 Pager # [phone] Associated attestation - Kristyn Blankenship MD - [...] NPO at midnight for possible thrombectomy tomorrow. [facility] Anticoagulation Management Service ([facility]) Inpatient Warfarin Consult HPI: Mel Pop is a 83 y.o. female admitted on 04/03/2024 for Peripheral arterial disease (HCC). Past Medical History: Diagnosis Date Asthma Essential hypertension 03/07/2020 GERD (gastroesophageal reflux disease) Hiatal hernia Pure hypercholesterolemia 03/07/2020 Patient is newly referred to the [facility] clinic for warfarin management. Pt was [...] Will determine if pt is agreeable to [facility] follow-up 4. Will provide warfarin education. Thank you for this consult Marybeth Rahman RPh, PharmD [facility] Consult Service is available daily [phone] via [employer] Secure Chat. If no response, please page [phone]. Nonbillable encounter. Patient was seen by provider earlier today Patient is an 83-year-old female with history of A-fib on Eliquis, significant tobacco use, HTN, HLD, asthma, hiatal hernia, GERD who presented to [facility] 04/03 with right leg pain, numbness, tingling causing difficulty ambulating. CTA of LE, showing severe LE atherosclerotic disease with bilateral superficial femoral artery occlusion, and was transferred to [facility] for admission. Severe bilateral LE [...] Eliquis -Smoking cessation documented in this encounter [facility] 04-13-2024 Note Formatting of this n ote is different from the original. Images from the original note were not included. Care Management Progress Note INR 2.3 today. Hep drip continued, plan to DC to [facility] today. Plan to have PT seen patient today per her request. Patient is active with [facility]. Await treatment plan and clinical progress. wildlife manager will continue to follow for transitional [...] [place], vasc consult" 04/06/2024 Bernie Cutler, LINER REROLL TENDER - STORES CLERK 04/04/2024 4:04 AM 04/06/2024 Bernie Cutler APRN - STORES CLERK 04/03/2024 11:17 PM Length of Stay (Days): 10 GMLOS: 4 [facility] 04-13-2024 Note Formatting of this n ote is different from the original. Images from the original note were not included. Care Management Progress Note INR 2.3 today. Hep drip continued, plan to DC to [facility] today. Plan to have PT seen patient today per her request. Patient is active with [facility]. Await treatment plan and clinical progress. wildlife manager will continue to follow for transitional [...] vasc consult" 04/06/2024 Bernie Cutler APRN - STORES CLERK 04/04/2024 4:04 AM 04/06/2024 Bernie Cutler APRN - STORES CLERK 04/03/2024 11:17 PM Length of Stay (Days): 10 GMLOS: 4 [facility] 04-13-2024 Plan of care note The [...] plan, medications, and discharge instructions Outcome: Progressing [facility] 04-12-2024 Plan of care note Problem: [...] patient condition declining or worsening [facility] 04-12-2024 Note Formatting of this n ote is different from the original. Images from the original note were not included. Care Management Progress Note Patent currently still on Hep Drip, INR 1.9. Will convert to oral when appropriate. Pt active with [facility]- will continue services at discharge. Await treatment plan and clinical progress. wildlife manager will continue to follow for transitional care needs for discharge planning. Discharge Milestones and Delays Expected date/time: 04/13/2024 Expected discharge disposition: Home Health Services Discharge Milestones Place discharge order Complete med reconciliation Case mgmt discharge readiness Clinical Stability Diagnostic Workup Alternative Energy Technician Recommendations Facility Choice Selection Imaging Results PT [...] Length of Stay (Days): 9 GMLOS: 4 [facility] 04-12-2024 Note Formatting of this n ote is different from the original. Images from the original note were not included. Care Management Progress Note Patent currently still on Hep Drip, INR 1.9. Will convert to oral when appropriate. Pt active with [facility]- will continue services at discharge. Await treatment plan and clinical progress. wildlife manager will continue to follow for transitional care needs for discharge planning. Discharge Milestones and Delays Expected date/time: 04/13/2024 Expected discharge disposition: Home Health Services Discharge Milestones Place discharge order Complete med reconciliation Case mgmt discharge readiness Clinical Stability Diagnostic Workup Alternative Energy Technician Recommendations Facility Choice Selection Imaging Results PT [...] Length of Stay (Days): 9 GMLOS: 4 [facility] 04-12-2024 Plan of care note The [...] medications, and discharge instructions Outcome: Progressing T [facility] 04-11-2024 Note Formatting of this n ote is different from the original. Images from the original note were not included. Care Management Progress Note Patent currently still on Hep Drip, INR 1.9. Will convert to oral when appropriate. Pt active with [facility]- will continue services at discharge. Await treatment plan and clinical progress. wildlife manager will continue to follow for transitional [...] vasc consult" 04/06/2024 Bernie Cutler APRN - STORES CLERK 04/04/2024 4:04 AM 04/06/2024 Bernie Cutler APRN - STORES CLERK 04/03/2024 11:17 PM Length of Stay (Days): 8 GMLOS: 4 [facility] 04-11-2024 Note Formatting of this n ote is different from the original. Images from the original note were not included. Care Management Progress Note Patent currently still on Hep Drip, INR 1.9. Will convert to oral when appropriate. Pt active with [facility]- will continue services at discharge. Await treatment plan and clinical progress. wildlife manager will continue to follow for transitional [...] vasc consult" 04/06/2024 Bernie Cutler APRN - STORES CLERK 04/04/2024 4:04 AM 04/06/2024 Bernie Cutler APRN - STORES CLERK 04/03/2024 11:17 PM Length of Stay (Days): 8 GMLOS: 4 [facility] 04-11-2024 Plan of care note Problem: [...] risk of patient condition declining or worsening [facility] 04-11-2024 Plan of care note The [...] or baseline comfort level Outcome: Progressing T [facility] 04-10-2024 Plan of care note Problem: [...] risk of patient condition declining or worsening [facility] 04-10-2024 Note Formatting of this n ote is different from the original. Images from the original note were not included. Care Management Progress Note Patient currently still on Heparin Drip, INR 1.6 today.Will convert to oral when appropriate. Pt active with [facility]- will continue services at discharge. Await treatment plan and clinical progress. wildlife manager will continue to follow for transitional care needs for discharge planning. Discharge Milestones and Delays Expected date/time: 04/11/2024 Expected discharge disposition: Home or Self Care Discharge Milestones Place discharge order Complete med reconciliation Case mgmt discharge readiness Clinical Stability Diagnostic Workup Alternative Energy Technician Recommendations Facility Choice Selection Imaging Results Patient [...] vasc consult" 04/06/2024 Bernie Cutler APRN - STORES CLERK 04/04/2024 4:04 AM 04/06/2024 Bernie Cutler APRN - STORES CLERK 04/03/2024 11:17 PM Length of Stay (Days): 7 GMLOS: 4 [facility] 04-10-2024 Note Formatting of this n ote is different from the original. Images from the original note were not included. Care Management Progress Note Patient currently still on Heparin Drip, INR 1.6 today.Will convert to oral when appropriate. Pt active with [facility]- will continue services at discharge. Await treatment plan and clinical progress. wildlife manager will continue to follow for transitional care needs for discharge planning. Discharge Milestones and Delays Expected date/time: 04/11/2024 Expected discharge disposition: Home or Self Care Discharge Milestones Place discharge order Complete med reconciliation Case mgmt discharge readiness Clinical Stability Diagnostic Workup Alternative Energy Technician Recommendations Facility Choice Selection Imaging Results Patient [...] Length of Stay (Days): 7 GMLOS: 4 [facility] 04-09-2024 Note Formatting of this n ote is different from the original. Images from the original note were not included. Care Management Progress Note Remains on heparin gtt while transitioning to coumadin. Consult Hemology. Pt active with [facility]- will continue services at discharge. Await treatment plan and clinical progress. wildlife manager will continue to follow for transitional care needs for discharge planning. Discharge Milestones and Delays Expected date/time: 04/10/2024 Expected discharge disposition: Home or Self Care Discharge Milestones Place discharge order Complete med reconciliation Case mgmt discharge readiness Clinical Stability Diagnostic Workup Alternative Energy Technician Recommendations Facility Choice Selection Imaging Results Patient [...] Length of Stay (Days): 6 GMLOS: 3.1 [facility] 04-09-2024 Note Formatting of this n ote is different from the original. Images from the original note were not included. Care Management Progress Note Remains on heparin gtt while transitioning to coumadin. Consult Hemology. Pt active with [facility]- will continue services at discharge. Await treatment plan and clinical progress. wildlife manager will continue to follow for transitional care needs for discharge planning. Discharge Milestones and Delays Expected date/time: 04/10/2024 Expected discharge disposition: Home or Self Care Discharge Milestones Place discharge order Complete med reconciliation Case mgmt discharge readiness Clinical Stability Diagnostic Workup Alternative Energy Technician Recommendations Facility Choice Selection Imaging Results Patient [...] Length of Stay (Days): 6 GMLOS: 3.1 [facility] 04-08-2024 Plan of care note Progressing [facility] 04-07-2024 Plan of care note The [...] or baseline comfort level Outcome: Progressing . [facility] 04-07-2024 Hospital Discharge instructions Lolita Sarah [...] Rahman RPh - 04/13/2024 1:07 PM EDT [facility] Clinic will monitor your warfarin after you go home. [facility] Phone number: [phone]. 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 therapy Seasonal allergies [...] 8 oz) Mental Status: {HECTOR Patient Mental Status:85774} IV Access: {HECTOR IV Access:59618} Nursing Mobility/ADLs: Walking {MAHESH ADL:::"Independent"} Transfer {MAHESH ADL:21882::"Independent"} Bathing {MAHESH ADL:::"Independent"} Dressing {MAHESH ADL:::"Independent"} Toileting {MAHESH ADL:::"Independent"} Feeding {MAHESH ADL:::"Independent"} Media Relations Specialist {MAHESH ADL:::"Independent"} Med Delivery {yes/no:58718} Wound Care Documentation and Therapy: Elimination: Continence: Bowel: {yes/no:64624} Bladder: {yes/no:00981} Urinary Catheter: {HECTOR Urinary Catheter:23471} Colostomy/Ileostomy/Ileal Conduit: {YES / NO:} Date of Last BM: Intake/Output Summary (Last 24 hours) at 04/04/2024 1135 Last data filed at 04/03/20242056 Gross per 24 hour Intake 500 ml Output -- Net 500 ml I/O last 3 completed shifts: In: 500 (6.9 mL/kg) [IV Piggyback:500] Out: - (0 mL/kg) Weight: 72.3 kg Safety Concerns: {HECTOR Safety Concerns:88504} Impairments/Disabilities: {HECTOR Impairments/Disabilities:03313} Nutrition Therapy: Current Nutrition Therapy: {HECTOR Diet List:61610} Routes of Feeding: {routes of feedin} Liquids: {liquid consistency:28234} Daily Fluid Restriction: {daily fluid restriction:42394} Last Modified Barium Swallow with Video (Video Swallowing Test): {done not done:33866} Treatments at the Time of Hospital Discharge: Respiratory Treatments: Oxygen Therapy: {Therapy; copd oxygen:47792} Ventilator: {HECTOR Ventilator:77796} Rehab Therapies: {GEN THERAPY DISCIPLINE SCAL:7961378} Weight Bearing Status/Restrictions: {POD WEIGHT BEARIN} Other Medical Equipment (for information only, NOT a DME order): {Assistive Devices DME:21893} Other Treatments: Patient's personal belongings (please select all that are sent with patient): {HECTOR Patient Belongings:14858} RN SIGNATURE: {E-signature:82959} CASE MANAGEMENT/SOCIAL WORK SECTION Inpatient Status Date: Discharging to Facility/ Agency Name: [facility] Address: [address] [place] [address] Dialysis Facility (if applicable) Name: Address: Dialysis Schedule: Phone: Fax: Reclaimer/Senior Technical Recruiter signature: {E-signature:01927} PHYSICIAN SECTION Name: Mel Pop Prognosis: {Rehab Prognosis:19631} Condition at Discharge: {Patient Condition:88272} Rehab Potential (if transferring to Rehab): {Rehab Prognosis:70157} Recommended Labs or Other Treatments After Discharge: The individual is being admitted to a nursing facility directly from an [facility] or a unit of a [facility] that is not operated by or licensed by [facility] under section 5119.14 or 5160-3-15.1 5 The individual requires the level of services provided by a nursing facility for the condition for which he or she was treated in the hospital and, Physician Certification: I certify the above information and transfer of Mel Pop is necessary for the continuing treatment of the diagnosis listed and that she requires {HECTOR Level of Care:74411} for {greater less than:55028} 30 days. Update Admission H&P: {HECTOR Changes in H&P:37268} PHYSICIAN SIGNATURE: {E-signature:19407} documented in this encounter [facility] 04-07-2024 Nurse Note NO changes to heparin infusion at this time. [facility] 04-06-2024 Note Formatting of this n ote is different from the original. Images from the original note were not included. Care Management Progress Note Pt s/p thrombectomy this am with vascular. Remains on heparin gtt while transitioning to coumadin. [facility] will continue services at discharge. [...] vasc consult" 04/06/2024 Bernie Cutler APRN - STORES CLERK 04/04/2024 4:04 AM 04/06/2024 Bernie Cutler APRN - STORES CLERK 04/03/2024 11:17 PM Length of Stay (Days): 3 GMLOS: 3.1 [facility] 04-06-2024 Note Formatting of this n ote is different from the original. Images from the original note were not included. Care Management Progress Note Pt s/p thrombectomy this am with vascular. Remains on heparin gtt while transitioning to coumadin. [facility] will continue services at discharge. Discharge [...] vasc consult" 04/06/2024 Bernie Cutler APRN - STORES CLERK 04/04/2024 4:04 AM 04/06/2024 Bernie Cutler APRN - STORES CLERK 04/03/2024 11:17 PM Length of Stay (Days): 3 GMLOS: 3.1 [facility] 04-06-2024 Note Formatting of this n ote might be different from the original. Patient report called to 4N RN and denies any further questions. Patient resting comfortably and no signs of distress. Per resident patient to lay flat for 2 hours and restart heparin GTT at 1215. Transport notified. [facility] 04-06-2024 Note Formatting of this n ote might be different from the original. Patient report called to 4N RN and denies any further questions. Patient resting comfortably and no signs of distress. Per resident patient to lay flat for 2 hours and restart heparin GTT at 1215. Transport notified. [facility] 04-06-2024 Note Formatting of this n ote might be different from the original. SW assisted patient with completion of Health Care Power of Lead Sql Developer. One copy placed in patient chart, one copy sent to medical records and two copies given to patient. Requested by patient, while at bedside this SW spoke to patient's son via patients phone to explain that HCPOA was being completed by patient. Patients son José Miguel Castillo ([phone]) agreed to be this patients agent on the HCPOA and confirmed understanding. [employer] [facility] 04-06-2024 Note Formatting of this n ote might be different from the original. SW assisted patient with completion of Health Care Power of Lead Sql Developer. One copy placed in patient chart, one copy sent to medical records and two copies given to patient. Requested by patient, while at bedside this SW spoke to patient's son via patients phone to explain that HCPOA was being completed by patient. Patients son José Miguel Castillo ([phone]) agreed to be this patients agent on the HCPOA and confirmed understanding. [facility] 04-06-2024 Note Formatting of this n ote [...] technique was used to place a 5 [address] Lucian sheath. A [employer] wire was able to be advanced in the inferior vena cava without difficulty. The 5 [address] Lucian sheath was then upsized to a 16 [place] Lucian sheath and the penumbra flash suction thrombectomy device was prepared per returned goods repairer's instructions. The patient was also given 5000 units of heparin for systemic anticoagulation at this time. The Penumbra device was then inserted through the 16 [address] Lucian sheath and a suction thrombectomy was performed [...] device was removed as was the 16 [place] Lucian sheath and an 0 silk suture was [...] the case. Kristyn Blankenship MD Vascular Surgery [facility] 04-06-2024 Note Formatting of this n ote is different from the original. Date: 04/06/2024 Location: [facility] OR Name: Mel Pop DOB: 1940, Diagnosis Pre-op Diagnosis * Right leg DVT (HCC) [I82.401] Post-op Diagnosis * Right leg DVT (HCC) [I82.401] Procedures RIGHT LOWER EXTREMITY VENOUS MECHANICAL THROMBECTOMY 03187 - [place] PRQ TRANSLUMINAL MECHANICAL THROMBECTOMY VEIN Surgeons * Kristyn Blankenship - Primary Procedure Summary Anesthesia: General ASA: III Estimated Blood Loss: 300 mL Drains: * None in log * Staff: Sr. Manager: Negrita Elizabeth RN; Amira Burton RN Scrub [...] antibiotics are not indicated for this procedure. [facility] 04-06-2024 Note Formatting of this n [...] technique was used to place a 5 [address] Lucian sheath. A Bentson wire was able to be advanced in the inferior vena cava without difficulty. The 5 [address] Lucian sheath was then upsized to a 16 [place] Lucian sheath and the penumbra flash suction thrombectomy device was prepared per returned goods repairer's instructions. The patient was also given 5000 units of heparin for systemic anticoagulation at this time. The Penumbra device was then inserted through the 16 [address] Lucian sheath and a suction thrombectomy was performed [...] device was removed as was the 16 [place] Lucian sheath and an 0 silk suture was [...] case. Kristyn Blankenship MD Vascular Surgery [facility] 04-06-2024 Note Formatting of this n ote is different from the original. Date: 04/06/2024 Location: [facility] OR Name: Mel Pop, : 1940, Diagnosis Pre-op Diagnosis * Right leg DVT (HCC) [I82.401] Post-op Diagnosis * Right leg DVT (HCC) [I82.401] Procedures RIGHT LOWER EXTREMITY VENOUS MECHANICAL THROMBECTOMY 68564 - [place] PRQ TRANSLUMINAL MECHANICAL THROMBECTOMY VEIN Surgeons * Kristyn Blankenship - Primary Procedure Summary Anesthesia: General ASA: III Estimated Blood Loss: 300 mL Drains: * None in log * Staff: Sr. Manager: Negrita Elizabeth RN; Amira Burton RN Scrub [...] antibiotics are not indicated for this procedure. [facility] 04-06-2024 Note Formatting of this n ote might be different from the original. Dr Blankenship at bedside. She called family to update them on procedure time change [facility] 04-06-2024 Note Formatting of this n ote might be different from the original. Dr Blankenship at bedside. She called family to update them on procedure time change [facility] 04-06-[address] Blankenship at bedside. She called family to update them on procedure time change [facility] 04-05-2024 Note Formatting of this n ote is different from the original. Images from the original note were not included. Care Management Progress Note Vascular following with noted plan for possible thrombectomy tomorrow. Remains on heparin gtt while transitioning to coumadin per oncology recommendation. Pt from home alone- indep [facility]- will return. Discharge Milestones and Delays [...] Length of Stay (Days): 2 GMLOS: 3.1 [facility] 04-05-2024 Note Formatting of this n ote is different from the original. Images from the original note were not included. Care Management Progress Note Vascular following with noted plan for possible thrombectomy tomorrow. Remains on heparin gtt while transitioning to coumadin per oncology recommendation. Pt from home alone- indep and active with [facility]- will return. Discharge Milestones and Delays [...] vasc consult" 04/06/2024 Bernie Cutler APRN - STORES CLERK 04/04/2024 4:04 AM 04/06/2024 Bernie Cutler APRN - STORES CLERK 04/03/2024 11:17 PM Length of Stay (Days): 2 GMLOS: 3.1 [facility] 04-05-2024 Plan of care note The patient is Moderately Stable - Low risk of patient condition declining or worsening The patient's goals for the shift include met The clinical goals for the shift include met [facility] 04-04-2024 Consult note Formatting of th is note is different from the original. Images from the original note were not included. [facility] Hematology Oncology Inpatient Consultation [facility] Mel Augustpherd : 1940(83 y.o.) Date: [...] afib, hypertension, and GERD who presented to [facility] for right lower extremity pain. [...] trifurcation vessels. Vascular surgery recommended transfer to [facility]. PVR and BLE US results [...] called her listed contacts (her friend and [id number] however they do not manage her pill [...] eliquis. I have left a voicemail with [facility] pharmacy in [place] to see if the Eliquis is being [...] min Stress: No Stress Concern Present (04/04/2024) [place] [employer] - Occupational Stress Questionnaire [...] POP : 1940 [id number] Exam Date/Time: 04/03/2024 21:14 Procedure: CTA AORTA [...] Patient Name: MEL POP : 1940 [facility]#: [id number] Exam Date/Time: 04/03/2024 21:06 Procedure: CT HEAD [...] completing clinical documentation as well as with [id number] patient care, performing a medically appropriate examination, [...] well as answering questions. Andre Patel MD [employer] Phone: 04-04-2024 Consult note Formatting of th is note is different from the original. Images from the original note were not included. [facility] Hematology Oncology Inpatient Consultation [facility] Mel Pop : 1940(83 y.o.) [...] afib, hypertension, and GERD who presented to [facility] for right lower extremity pain. [...] trifurcation vessels. Vascular surgery recommended transfer to [facility]. PVR and BLE US results [...] called her listed contacts (her friend and [id number] however they do not manage her pill [...] eliquis. I have left a voicemail with [facility] pharmacy in [place] to see if the Eliquis is being [...] min Stress: No Stress Concern Present (04/04/2024) [place] [employer] - Occupational Stress Questionnaire [...] POP : 1940 [id number] Exam Date/Time: 04/03/2024 21:14 Procedure: CTA AORTA [...] POP : 1940 [id number] Exam Date/Time: 04/03/2024 21:06 Procedure: CT HEAD [...] completing clinical documentation as well as with [id number]-vm-[id number] patient care, performing a medically appropriate examination, [...] Lolita Sarah MD PGY5, General Surgery Pager #[phone] Past Medical History: Diagnosis Date Asthma Essential [...] min Stress: No Stress Concern Present (04/04/2024) [place] [employer] - Occupational Stress Questionnaire [...] Patient Name: MEL POP : 1940 [facility]#: [id number] Exam Date/Time: 04/03/2024 21:14 Procedure: CTA AORTA [...] evidence of phlegmasia. Heparin gtt initiated at [facility] prior to transfer and continued here. She notes missed doses of her Eliquis. Recommend compression and elevation of the right lower extremity. Can consider mechanical thrombectomy however given patient's age, this may be more risk than of benefit. Will continue to monitor for symptom improvement on anticoagulation alone. documented in this encounter [facility] 04-04-2024 Note Formatting of this n ote might be different from the original. Care Managment Initial Assessment Date: 04/04/2024 Patient Name: Mel Pop : 1940 Patient Information Source of Information: Patient Cognition/Language: WFL - Within Functional Limits Permission given to speak with patient international account representative/caregiver as indicated: Confirmation of Payer with [...] Home Health Services Care [facility] Dialysis Type: NA Durable Medical Equipment: [...] home alone and indep. Pt active with [facility]- liaison following for continued services. Pt uses walker/cane at baseline. Pt has insurance, PCP and able to obtain meds. Pt's friends help with transportation. No needs antic at discharge. Virginia Rehman RN [facility] 04-04-2024 Note Formatting of this n ote might be different from the original. Care Managment Initial Assessment Date: 04/04/2024 Patient Name: Mel Pop : 1940 Patient Information Source of Information: Patient Cognition/Language: WFL - Within Functional Limits Permission given to speak with patient international account representative/caregiver as indicated: Confirmation of Payer with [...] needs antic at discharge. Virginia Rehman RN [facility] 04-04-2024 Note Formatting of this n ote is different from the original. Start PACC Note Home Health Referral Educated patient on Home Care and services available. Patient offered choice of available HHC and agreeable to SN/PT services with [facility]. Care Types: [...] is noted as yes - consider a BAIL BOND AGENT evaluation once the patient returns home. START PATIENT REGISTRATION INFORMATION Order Information Order Signing Physician: Robert Vigil MD Service Ordered RN ?: Yes Service Ordered PT ?: Yes Service Ordered OT ?: No Service Ordered ST ?: No Service Ordered BAIL BOND AGENT?:No Service Ordered CUSTOMS INSPECTOR?: No Following Physician: Jared Evans MD Following Physician Overseeing Physician: Jared Evans MD (Required for Residents only) Agreeable to Follow? Yes Date/Time of Call 04/04/24 11:36 AM, Spoke with: Patient is a DEB. Care Coordination Same Day SOC?: No Primary Care Physician: Jared Evans MD Primary Care Physician Primary Care Physician Address: [address] [place] [address] Visit Instructions: N/A Service Discharge Location Type: Home with Home Care Service Facility Name: N/A Service Floor Facility: N/A Service Room No: N/A Demographics Patient Last Name: Pop Patient First Name: Mel Language/Communication Barrier: none Service Address: [address] Service City: [place] Service ST: [place] Service ZIP: [address] Service Other phone numbers: Telephone Information: Emergency [...] Caregiver Phone Number: na Caregiver Notes: N/A [employer] List No END PATIENT REGISTRATION INFORMATION Pt [...] intervention. Discharge Date: pending Referral Source-PACC: (Hospital/Unit): [facility] / N4-461/N4-461 B End PACC Note [facility] 04-04-2024 Note Formatting of this n ote is different from the original. Start PACC Note Home Health Referral Educated patient on Home Care and services available. Patient offered choice of available HHC and agreeable to SN/PT services with [email or web address]. Care Types: [...] is noted as yes - consider a BAIL BOND AGENT evaluation once the patient returns home. START PATIENT REGISTRATION INFORMATION Order Information Order Signing Physician: Robert Vigil MD Service Ordered RN ?: Yes Service Ordered PT ?: Yes Service Ordered OT ?: No Service Ordered ST ?: No Service Ordered BAIL BOND AGENT?:No Service Ordered CUSTOMS INSPECTOR?: No Following Physician: Jared Evans MD Following Physician Overseeing Physician: Jared Evans MD (Required for Residents only) Agreeable to Follow? Yes Date/Time of Call 04/04/24 11:36 AM, Spoke with: Patient is a DEB. Care Coordination Same Day SOC?: No Primary Care Physician: Jared Evans MD Primary Care Physician Primary Care Physician Address: [address] [place] [address] Visit Instructions: N/A Service Discharge Location Type: Home with Home Care Service Facility Name: N/A Service Floor Facility: N/A Service Room No: N/A Demographics Patient Last Name: Jose Alberto Patient First Name: Mel Language/Communication Barrier: none Service Address: [address] Service City: [place] Service ST: [place] Service ZIP: [address] Service Other phone numbers: Telephone Information: Emergency [...] Caregiver Phone Number: na Caregiver Notes: N/A [employer] List No END PATIENT REGISTRATION INFORMATION Pt [...] intervention. Discharge Date: pending Referral Source-PACC: (Hospital/Unit): [facility] / N4-461/N4-461 B End PACC Note [facility] 04-04-2024 Plan of care note The patient is Moderately Stable - Low risk of patient condition declining or worsening The patient's goals for the shift include safety The clinical goals for the shift include therapeutic aptt [facility] 04-04-2024 Note Formatting of this n ote might be different from the original. Patient is currently active with [facility]. The patients current certification period will on 05/18/24. The patient is currently receiving PT services through the agency. Air Filler to continue to follow. [facility] 04-04-2024 Note Formatting of this n ote might be different from the original. Patient is currently active with [facility]. The patients current certification period will on 05/18/24. The patient is currently receiving PT services through the agency. Air Filler to continue to follow. [facility] 04-04-2024 Consult note Associated Order (s): IP [...] Lolita Sarah MD PGY5, General Surgery Pager #[phone] Past Medical History: Diagnosis Date Asthma Essential [...] min Stress: No Stress Concern Present (04/04/2024) [place] [employer] - Occupational Stress Questionnaire [...] Patient Name: MEL POP : 1940 [facility]#: [id number] Exam Date/Time: 04/03/2024 21:14 Procedure: CTA AORTA [...] evidence of phlegmasia. Heparin gtt initiated at [facility] prior to transfer and continued here. She notes missed doses of her Eliquis. Recommend compression and elevation of the right lower extremity. Can consider mechanical thrombectomy however given patient's age, this may be more risk than of benefit. Will continue to monitor for symptom improvement on anticoagulation alone. [employer] Phone: 09-18-2024 Note Formatting of this n [...] - DO NOT do CPR, intubation] [_] [DNR-ELECTRIC FREIGHT CAR OPERATOR - Comfort care only] [_] DNR [...] with patient and/or family/surrogate. Pratibha Avelar DO [facility] care [facility] 04/04/2024, 5:40 AM [facility] 04-04-2024 Note Formatting of this n ote is different from the original. [employer] Mle Pop : 1940 Primary Care Physician: Jared Evans MD The patient and/or family/surrogate voluntarily agreed to participate in ACP services. Patient s cognitive capacity: intact Code Status: [ ] [FULL CODE - Continue all advanced life support: CPR,intubation,invasive procedures] [X] [DNR-CCA - DO NOT do CPR, intubation] [_] [DNR-ELECTRIC FREIGHT CAR OPERATOR - Comfort care only] [_] DNR [...] with patient and/or family/surrogate. Pratibha Avelar DO [facility] [employer] 04/04/2024, 5:40 AM [facility] 04-04-2024 History and physical note Attending [...] min Stress: No Stress Concern Present (04/04/2024) [place] [employer] - Occupational Stress Questionnaire [...] DO Division of Hospitalist Medicine Inpatient Medical Services[facility] Work Phone: 04-04-2024 Note [facility] 04-04-2024 History and physical note [...] min Stress: No Stress Concern Present (04/04/2024) [place] [employer] - Occupational Stress Questionnaire [...] Relation: Child Pratibha Avelar DO [facility] documented in this encounter [facility] 04-04-2024 Plan of care note The patient is Moderately Stable - Low risk of patient condition declining or worsening The patient's goals for the shift include met The clinical goals for the shift include met Over the shift, the patient did not make progress toward the following goals. Barriers to progression include . Recommendations to address these barriers include . [facility] 04-04-2024 Emergency department Note Report to Delia Bond RN 04/04/24341 [facility] 04-04-2024 Emergency department Note Report to Delia Bond RN 04/04/24341 Multiple attempts made to call report to [facility] with phone number provided by hydropress operator, but when phone number dialed RN only gets busy tone. Will try again. Shannon Bond RN 04/04/24 0331 [facility] at bedside to transport pt to [facility]. Paperwork with EMS Shannon Bond [...] Resource Strain: Low Risk (05/18/2022) Received from [facility] Overall Financial Resource Strain (CARDIA) Difficulty of Paying Living Expenses: Not hard at all Food Insecurity: No Food Insecurity (05/18/2022) Received from [facility] Hunger Vital Sign Worried About Running Out of Food in the Last Year: Never true Ran Out of Food in the Last Year: Never true Transportation Needs: No Transportation Needs (05/18/2022) Received from [facility] PRAPARE - Transportation Lack of Transportation (Medical): No Lack of Transportation (Non-Medical): No Housing Stability: Unknown (05/18/2022) Received from [facility] Housing Stability Vital Sign Unable [...] extremities will heparinize or admit her to 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 Patient admitted to [facility]. Patient in agreement with plan. [...] or other complaints. documented in this encounter [facility] [email or web address] 04-04-2024 Emergency department Note Multiple attempts made to call report to [facility] with phone number provided by hydropress operator, but when phone number dialed RN only gets busy tone. Will try again. Shanonn Bond RN 04/04/24 0331 [facility] 04-04-2024 Emergency department Note [facility] at bedside to transport pt to [facility]. Paperwork with EMS Shannon Bond RN 04/04/24 0314 [facility] 04-03-2024 Emergency department Triage note Pt [...] upon arrival. No SOB or other complaints. [facility] 04-03-2024 Physician Emergency department Note EMERGENCY [...] Resource Strain: Low Risk (05/18/2022) Received from [facility] Overall Financial Resource Strain (CARDIA) Difficulty of Paying Living Expenses: Not hard at all Food Insecurity: No Food Insecurity (05/18/2022) Received from [facility] Hunger Vital Sign Worried About Running Out of Food in the Last Year: Never true Ran Out of Food in the Last Year: Never true Transportation Needs: No Transportation Needs (05/18/2022) Received from [facility] PRAPARE - Transportation Lack of Transportation (Medical): No Lack of Transportation (Non-Medical): No Housing Stability: Unknown (05/18/2022) Received from [facility] Housing Stability Vital Sign Unable [...] [facility] (Per Emergency Physician): Interpretation [...] I also reviewed external records from [facility]. I discussed their care with none. Consideration for escalation of care with: Admission/observation discussed case with Dr. Blankenship, will place her on heparin, she does have reconstitution past the mid femoral occlusion and she has normal range of motion to the lower extremities but she has severe disease to the lower extremities will heparinize or admit her to [facility] in case she needs an emergent [...] Medicine Provider SEBASTIAN Herrera CNP 04/03/24 2238 [facility] 04-03-2024 Physician Emergency department Note Emergency Department Encounter [facility] Patient: Mel [...] the entirety of this encounter. In brief, Mle Pop is a 83 y.o. 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 Patient admitted to [facility]. Patient in agreement with plan. [...] [employer] Winifred Cornell DO 04/06/24 1625 [facility] [email or web address] Work Phone: 07-27-2023 History of Present illness Narrative [facility] [address] [place] [address] [address] [facility] [address] Dept: [phone] Dept Mel Serna Pop 1940 [id number] 07/27/2023 HISTORY OF PRESENT ILLNESS: Mel is [...] improve. Electronically signed by Ming Weinberg MD [facility] Medical [facility] Department of Orthopedic surgery 07/27/2023 5:21 PM Voice recognition was used for portions of this note and although it was reviewed prior to signing some incorrect words or phrases could be present. documented in this encounter [facility] 07-06-2022 Miscellaneous Notes PATIENT INFORMATION Record ID: [id number] Patient Name: Mel [facility] [place]: [facility] [place]: [facility] Attending: Iwona Chu Center: Internal Medicine and Geriatrics INSTRUCTIONS All Clear SN to remind patient of next upcoming appointment date, time, location All Clear All Clear All Clear SURVEY INFORMATION Medical/Nurse Central Service Tech: Inés Tubbs 1. Your discharge instructions are [...] (Standard Question) No documented in this encounter [facility] 06-29-2022 Note HNO ID: [id number] Author: Joana Tolbert RPh Service: Pharmacy Author [...] Your Medications These medications were sent to [facility] [address] [address] Hours: Tuesday-Tuesday, 8am-4:30pm apixaban 5 mg (74 tabs) ascorbic acid (vitamin C) 500 mg tablet bacitracin 500 unit/gram ointment guaiFENesin 600 mg 12 hr tablet HYDROcodone-acetaminophen 5-325 mg per tablet lactobacillus rhamnosus 10 billion cell capsule metoprolol tartrate (short acting) [address] 40 mg tablet sucralfate 1 gram tablet [facility] 06-29-2022 Note HNO ID: [id number] Author: Kassidy Mejia RN Service: Care Management [...] needs and plan for meeting these needs: [facility] HANDOFF COMMUNICATION: TRANSPORTATION ARRANGEMENTS: Transportation Arrangements: Car ADDITIONAL CONTACT RESOURCES: [facility] was able to approve and deliver home O2. SIGNATURE: Kassidy Mejia RN PATIENT NAME: Mel Castillo DATE: June 29, 2022 TIME: 12:38 PM PAGER/CONTACT #: [phone] [facility] 06-28-2022 Note HNO ID: [id number] Author: Iwona Chu DO Service: Hospital Medicine Author Type: Physician Type: Progress Notes Filed: 06/28/2022 8:58 PM Note Text: Needs O2 arranged before discharge [facility] 06-28-2022 Note HNO ID: [id number] Author: Irene Han RN Service: Care Management [...] prior to dc. IMM completed. UPDATE @ 7415: [facility] is outside of the patient's service area. Additional DMR referrals sent to [facility] and [facility]; awaiting response. Will need accepting DMR provider and home O2 delivery, prior to discharge. Oxygen/HC orders in [facility]. SIGNATURE: Irene Han RN PATIENT NAME: Mel Castillo DATE: June 28, 2022 TIME: 1:58 PM PAGER/CONTACT #: [phone] [facility] 06-28-2022 Note HNO ID: [id number] Author: Iwona Chu DO Service: Hospital Medicine [...] micropuncture needle and serially upsized to a 5-St Lucian sheath. A venogram was then performed, which [...] time, the sheath was upsized to an 8-St Lucian sheath. An intravascular ultrasound was performed. This [...] [facility] 06[facility] Note HNO ID: [id number] Author: Iwona Chu DO Service: Hospital Medicine [...] micropuncture needle and serially upsized to a 5-St Lucian sheath. A venogram was then performed, which [...] time, the sheath was upsized to an 8-St Lucian sheath. An intravascular ultrasound was performed. This [...] [facility] 06-26-2022 Note HNO ID: [id number] Author: Iwona Chu DO Service: Hospital Medicine [...] micropuncture needle and serially upsized to a 5-St Lucian sheath. A venogram was then performed, which [...] time, the sheath was upsized to an 8-St Lucian sheath. An intravascular ultrasound was performed. This [...] [facility] 06-25-2022 Note HNO ID: [id number] Author: Heron Ayers MD Service: Hospital Medicine [...] Given, 06/25 84106/24/22181207/02/2285806/16/221944 vte current anticoag therapy (va,ga) 06/16/221944 activity - mobilize patient (va,ga) VTE Prophylaxis: VTE prophylaxis appropriate Disposition: Home Plan of care discussed with: Provider, RN, Patient SIGNATURE: Heron Ayers MD PATIENT NAME: Mel Castillo DATE: June 25, 2022 TIME: 12:03 PM etx [id number] [facility] 06-25-2022 Note HNO ID: [id number] Author: Kassidy Mejia RN Service: Care Management [...] 25, 2022 TIME: 11:30 AM PAGER/CONTACT #: [phone] [facility] 06-24-2022 Note HNO ID: [id number] Author: Richie Yi MD Service: General Internal Medicine Author Type: Physician Type: Progress Notes Filed: 06/24/2022 6:34 PM Note Text: DEPARTMENT OF HOSPITAL MEDICINE PROGRESS NOTE SERVICE DATE: 06/23/2022 SERVICE TIME: 7:19 PM Hospital Medicine/Primary Attending: Richie Yi MD NIGHT AND WEEKEND COVERAGE: [place] COVERAGE: After 7pm, please call cross cover pager #[phone] Subjective Patient was seen today. She is [...] 0300 06/16/22 194 vte current anticoag therapy (va,ga) 06/16/221944 activity - mobilize patient (va,ga) VTE Prophylaxis: VTE prophylaxis appropriate Disposition: To be determined Plan of care discussed with: Provider, RN, Patient SIGNATURE: Richie Yi MD PATIENT NAME: Mel Castillo DATE: June 23, 2022 TIME: 7:19 PM etx [id number] [facility] 06-24-2022 Note HNO ID: [id number] Author: SHAQUILLE Kaye Service: Care Management Author Type: Senior Technical Recruiter Type: Care Mgt Progress Note Filed: 06/24/2022 [...] 24, 2022 TIME: 1:02 PM PAGER/CONTACT #: [phone] [facility] 06-23-2022 Note HNO ID: [id number] Author: Richie Yi MD Service: General Internal Medicine Author Type: Physician Type: Progress Notes Filed: 06/23/2022 7:28 PM Note Text: DEPARTMENT OF HOSPITAL MEDICINE PROGRESS NOTE SERVICE DATE: 06/23/2022 SERVICE TIME: 7:19 PM Hospital Medicine/Primary Attending: Richie Yi MD NIGHT AND WEEKEND COVERAGE: [place] COVERAGE: After 7pm, please call cross cover pager #[phone] Subjective Patient was seen today. She is [...] 1028 -- 06/16/221944 vte current anticoag therapy ([place]) 06/16/221944 activity - mobilize patient ([place]) VTE Prophylaxis: VTE prophylaxis appropriate Disposition: To be determined Plan of care discussed with: Provider, RN, Patient SIGNATURE: Richie Yi MD PATIENT NAME: Mel Castillo DATE: June 23, 2022 TIME: 7:19 PM etx [id number] [facility] 06-23-2022 Note HNO ID: [id number] Author: Kassidy Mejia RN Service: Care Management Author Type: Registered Nurse Type: Care Mgt Progress Note Filed: 06/23/2022 4:00 PM Note Text: CARE MANAGEMENT PROGRESS NOTE SERVICE DATE: 06/23/2022 SERVICE TIME: 3:55 PM LOS: 7 days Spoke with pt at the bedside. Discussed SNF placement. Auth obtained for [facility]- pt would be responsible for copay 50% of cost per day for days 1-100. Pt refusing SNF at this time. Pt would like to d/c home with her son and dtr-in-law to ([address] [place] [address]). Pt would agreeable to [facility]- Referrals sent. Pt may need home O2- await ambulatory pulse ox. Family likely able to transport at d/c. CM to follow. SIGNATURE: Kassidy Mejia RN PATIENT NAME: Mel Castillo DATE: June 23, 2022 TIME: 3:53 PM PAGER/CONTACT #: [phone] [facility] 06-22-2022 Note HNO ID: [id number] Author: Dwayne Zaidi MD Service: Hospital Medicine Author Type: Physician Type: Progress Notes Filed: 06/22/2022 6:47 PM Note Text: DEPARTMENT OF HOSPITAL MEDICINE PROGRESS NOTE SERVICE DATE: 06/22/2022 SERVICE TIME: 6:42 PM Hospital Medicine/Primary Attending: Dwayne Zaidi MD NIGHT AND WEEKEND COVERAGE: After 7pm please page [phone] CHIEF COMPLAINT: Follow-up for acute left lower [...] bowel sounds normally heard, no mass palpable SWEEPER DRIVER- cranial nerves 2 to 12 grossly intact, [...] [facility] 06[facility]22[facility]2022 Note HNO ID: [id number] Author: Kassidy Mejia RN Service: Care Management Author Type: Registered Nurse Type: Care Mgt Progress Note Filed: 06/22/2022 10:15 AM Note Text: CARE MANAGEMENT PROGRESS NOTE SERVICE DATE: 06/22/2022 SERVICE TIME: 10:15 AM LOS: 6 days IMM Follow Up Copy Given: Yes Copy given to:: Patient Method: In Person (verbal) [facility] is able to accept pt. Precert tasked. Pt will need cot for transport. CM to follow. SIGNATURE: Kassidy Mejia RN PATIENT NAME: Mel Castillo DATE: June 22, 2022 TIME: 10:14 AM PAGER/CONTACT #: [phone] [facility] 06-21-2022 Note HNO ID: [id number] Author: Dwayne Zaidi MD Service: Hospital Medicine Author Type: Physician Type: Progress Notes Filed: 06/21/2022 4:10 PM Note Text: DEPARTMENT OF HOSPITAL MEDICINE PROGRESS NOTE SERVICE DATE: 06/21/2022 SERVICE TIME: 4:04 PM Hospital Medicine/Primary Attending: Dwayne Zaidi MD NIGHT AND WEEKEND COVERAGE: After 7pm please page [phone] CHIEF COMPLAINT: Follow-up for acute left lower [...] bowel sounds normally heard, no mass palpable SWEEPER DRIVER- cranial nerves 2 to 12 grossly intact, [...] on file COPD (chronic obstructive pulmonary disease) ([facility]) POA: Status not on file Tobacco [...] [facility] 06-21[facility]2022 Note HNO ID: [id number] Author: Kassidy Mejia RN Service: Care Management Author Type: Registered Nurse Type: Care Mgt Progress Note Filed: 06/21/2022 3:44 PM Note Text: CARE MANAGEMENT PROGRESS NOTE SERVICE DATE: 06/21/2022 SERVICE TIME: 3:41 PM LOS: 5 days Spoke with pt at the bedside. Pt states that she lives at home alone. PT/OT rec SNF. Pt would like [facility]- referral sent. Await acceptance. Pt will need precert when medically stable. Pt will need cot for transport. Cm to follow. SIGNATURE: Kassidy Mejia RN PATIENT NAME: Mel Castillo DATE: June 21, 2022 TIME: 3:41 PM PAGER/CONTACT #: [phone] [facility] 06-21-2022 Note HNO ID: [id number] Author: Primo Dodd APRN.SHAMIKA Service: Gastroenterology Author [...] [facility] 06-20-2022 Note HNO ID: [id number] Author: Acacia Hardin DO Service: General Surgery Author Type: Resident Type: Plan of Care Filed: 06/20/2022 1:40 PM Note Text: Plan of Care Dr. 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 Spoke with Dr. Wilson, principal automation engineer for Dr. Rodriguez, and she states these [...] [facility] 06-20-2022 Note HNO ID: [id number] Author: Dwayne Zaidi MD Service: Hospital Medicine Author Type: Physician Type: Progress Notes Filed: 06/20/2022 12:39 PM Note Text: DEPARTMENT OF HOSPITAL MEDICINE PROGRESS NOTE SERVICE DATE: 06/20/2022 SERVICE TIME: 12:35 PM Hospital Medicine/Primary Attending: Dwayne Zaidi MD NIGHT AND WEEKEND COVERAGE: After 7pm please page [phone] CHIEF COMPLAINT: Follow-up for acute left lower [...] bowel sounds normally heard, no mass palpable SWEEPER DRIVER- cranial nerves 2 to 12 grossly intact, [...] [facility] 06-19-2022 Note HNO ID: [id number] Author: Dwayne Zaidi MD Service: Hospital Medicine Author Type: Physician Type: Progress Notes Filed: 06/19/2022 4:33 PM Note Text: DEPARTMENT OF HOSPITAL MEDICINE PROGRESS NOTE SERVICE DATE: 06/19/2022 SERVICE TIME: 4:29 PM Hospital Medicine/Primary Attending: Dwayne Zaidi MD NIGHT AND WEEKEND COVERAGE: After 7pm please page [phone] CHIEF COMPLAINT: Follow-up for acute left lower [...] bowel sounds normally heard, no mass palpable SWEEPER DRIVER- cranial nerves 2 to 12 grossly intact, [...] [facility] 06-18-2022 Note HNO ID: [id number] Author: Emanuel Hull MD Service: General Surgery [...] 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 06-18-2022 Note HNO ID: [id number] Author: Kassidy Mejia RN Service: Care Management [...] 18, 2022 TIME: 3:46 PM PAGER/CONTACT #: [phone] [facility] 06-17-2022 Note HNO ID: [id number] Author: Eliza Parikh RN Service: Nursing Author Type: Registered Nurse Type: Nursing Progress Note Filed: 06/17/2022 7:24 PM Note Text: Pt to 4200 via bed. Pt tolerated well. [facility] 06-17-2022 Note HNO ID: [id number] Author: Eliza Parikh RN Service: Nursing Author Type: Registered Nurse Type: Nursing Progress Note Filed: 06/17/2022 4:35 PM Note Text: Report to [address]A [facility] 06-17-2022 Note HNO ID: [id number] Author: Efrain Ivey (Medicaid Specialist) Service: Pharmacy Author Type: Drywaller Type: Plan of Care Filed: 06/17/2022 2:16 PM Note Text: PHARMACY MEDICATION REVIEW Patient Name: Mel Castillo : 1940 The following medications were updated within the [facility] medication list: Medications ADDED to [facility] medication list amLODIPine (NORVASC) 10 mg tablet OTHER Yes Yes dexAMETHasone (DECADRON) 4 mg tablet OTHER Yes Yes lisinopril (ZESTRIL, PRINIVIL) 5 mg tablet OTHER Yes Yes RX filled via [employer] and verified with pt. herself Medications CHANGED on [facility] medication list na Medications REMOVED from [facility] medication list na Additional comments: I was able to talk with the pt. about her home medications. She states she takes the 3 RX medications recorded below. These 3 medications were added to her B[facility]ING [facility]ICK[facility] list. She has finished Paxlovid and a physician stopped Augmentin per pt. interview Required follow up for nursing. Medication history completed by Historian. No nursing follow up required. The below information represents the best possible medication history: Yes Medication history completed by: Drywaller: Efrain Ivey (Medicaid Specialist) Source of history: Patient: Reliability of source: Appears reliable, clearly identified: Medication name, Medication dose, Medication route, and Medication frequency and Pharmacy records: Epic e-script [facility] Medication nonadherence identified: No barriers noted Reconciliation completed: No, pharmacist not yet reviewed Patient interested in Bedside Delivery Services or using OP Pharmacy at discharge? No Preferred outpatient pharmacy: [id number] [place] [address] - [address] [phone] [id number] Allergies: Percocet [Oxycodone* Itching Prior to Admission [...] once daily. Facility-Administered Medications: None Efrain Ivey ([employer]) phone [phone] 06/17/2022 [facility] 06-17-2022 Note HNO ID: [id number] Author: Ladan Adame RN Service: Care Management [...] 17, 2022 TIME: 12:37 PM PAGER/CONTACT #: [phone] [facility] 06-17-2022 Note HNO ID: [id number] Author: Eliza Parikh RN Service: Nursing Author Type: Registered Nurse Type: Nursing Progress Note Filed: 06/17/2022 10:40 AM Note Text: Echo at bedside [facility] 06-16-2022 Note HNO ID: [id number] Author: Cirilo Alaniz APRN.RN OPERATING ROOM Service: Anesthesiology Author Type: Nurse Program Project Manager Type: Anesthesia Procedure Notes Filed: 06/16/2022 5:04 PM Note Text: ANESTHESIOLOGY PROCEDURE NOTE Airway General Information Procedure Start Time/Medication Administration: 06/16/2022 4:29 PM Patient location during procedure: OR Timeout Performed Pre-procedure: timeout performed Consent Obtained: Yes Patient identity confirmed: arm band and patient Staffing RN OPERATING ROOM: Cirilo Alaniz APRN.RN OPERATING ROOM Indications and Patient Condition Indications for airway [...] 1 Airway not difficult SIGNATURE: Cirilo Alaniz APRN.RN OPERATING ROOM PATIENT NAME: Mel Castillo DATE: June 16, 2022 TIME: 5:03 PM CSN: [id number] [facility] 06-16-2022 Note HNO ID: [id number] Author: Jean Pierre Gamboa RPh Service: Pharmacy [...] patient. Signature: Jean Pierre Gamboa tim Pager/Extension: [phone] [facility] 05-17-2022 History [...] be seen in the emergency room at [facility] for probable admission for IV antibiotics and airway concern. Patient understands this and will leave shortly. Josiah Barnes MD Findings will be communicated to the referring physician via mail or electronic medical record. documented in this encounter [facility] 05-14-2022 Instructions Jared Velazquez PA-C - [...] Jared Velazquez PA-C documented in this encounter [facility] 05-14-2022 History of Present illness Narrative [...] which included preparing to see the patient, [id number] patient care, completing clinical documentation, performing a medically appropriate examination, counseling and educating the patient/family/caregiver, and ordering medications, tests, or procedures. 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 [facility] Diagnosis Acute bacterial sialadenitis- Primary Bashir's, angina [facility] Diagnosis Localized swelling, mass and lump, neck Swelling, mass, or lump in head and neck [facility] Localized swelling, mass and lump, neck Swelling, mass, or lump in head and neck [facility] Diagnosis Localized swelling, mass and lump, neck- Primary Swelling, mass, or lump in head and neck Localized swelling, mass and lump, neck Swelling, mass, or lump in head and neck [facility] Diagnosis Other specified soft tissue disorders [facility] Diagnosis Localized swelling, mass and lump, neck- Primary Swelling, mass, or lump in head and neck Localized swelling, mass and lump, neck Swelling, mass, or lump in head and neck [facility] Diagnosis Abnormal findings on diagnostic imaging of other specified body structures Pain in left leg [facility]* 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[facility]* Diagnosis Other specified soft tissue disorders- Primary Other specified soft tissue disorders [facility]* Diagnosis Abnormal findings on diagnostic imaging of other specified body structures- Primary Pain in left leg Abnormal findings on diagnostic imaging of other specified body structures Pain in left leg [facility]* Diagnosis Peripheral arterial disease (HCC)- Primary Unspecified peripheral vascular disease Right leg pain Pain in soft tissues of limb Peripheral arterial disease (HCC) Unspecified peripheral vascular disease Right leg weakness Muscle weakness (generalized) Atrial fibrillation, unspecified type (HCC) Ischemic leg Unspecified circulatory system disorder [facility]* Diagnosis Deep vein thrombosis (DVT) of lower extremity, unspecified chronicity, unspecified laterality, unspecified vein (HCC)- Primary [facility]* Diagnosis Atrial fibrillation, unspecified type (HCC) Acute venous embolism and thrombosis of deep vessels of proximal end of right lower extremity (HCC) [facility]* Diagnosis Acute deep vein thrombosis (DVT) of iliac vein of right lower extremity (HCC)- Primary PAD (peripheral artery disease) (HCC) Unspecified peripheral vascular disease [facility]* Diagnosis Deep vein thrombosis (DVT) of lower extremity, unspecified chronicity, unspecified laterality, unspecified vein (HCC) Atrial fibrillation, unspecified type (HCC) Acute venous embolism and thrombosis of deep vessels of proximal end of right lower extremity (HCC) [facility]* Diagnosis Atrial fibrillation, unspecified type (HCC) Acute venous embolism and thrombosis of deep vessels of proximal end of right lower extremity (HCC) [facility]* Diagnosis Atrial fibrillation, unspecified type (HCC) Acute venous embolism and thrombosis of deep vessels of proximal end of right lower extremity (HCC) [facility]* Diagnosis Paroxysmal atrial fibrillation (HCC) Atrial fibrillation documented in this encounter 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 note* Diagnosis Retinal detachment, right- Primary Unspecified retinal detachment Vision loss of right eye Unqualified visual loss, one eye Acute intractable headache, unspecified headache type Visual disturbance, subjective Unspecified subjective visual disturbance Vision loss of right eye Unqualified visual loss, one eye Visual disturbance, subjective Unspecified subjective visual disturbance documented in this encounter 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 note* Diagnosis Postoperative eye state Other states following surgery of eye and adnexa Hemorrhagic choroidal detachment of right eye Hemorrhagic choroidal detachment Pseudophakia, right eye Lens replaced by other means Subluxation of right lens Subluxation of lens Hemorrhagic choroidal detachment of right eye Hemorrhagic choroidal detachment [facility]* Diagnosis Post-operative state- Primary Other [...] kidney injury) (HCC) documented in this encounter [facility] note* Diagnosis Acute deep vein thrombosis (DVT) of iliac vein of right lower extremity (HCC)- Primary PAD (peripheral artery disease) (HCC) Unspecified peripheral vascular disease documented in this encounter 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 Hemorrhagic choroidal detachment Right retinal detachment Unspecified retinal detachment Postoperative eye state Other states following surgery of eye and adnexa Pseudophakia, right eye Lens replaced by other means Subluxation of right lens Subluxation of lens [facility] [place] noteNo assessment information availableWKindred Hospital L[facility] Work Phone: Evaluation note* Diagnosis PAD (peripheral artery disease) (HCC)- Primary Unspecified peripheral vascular disease Skin ulcer of toe of right foot, limited to breakdown of skin (HCC) [facility] [place] Diagnosis Critical limb ischemia of right lower extremity (HCC)- Primary documented in this encounter [facility] note* Diagnosis Pre-op evaluation- Primary Skin ulcer of right great toe (HCC) Critical limb ischemia of right lower extremity (HCC) documented in this encounter [facility] [place] [facility]* Diagnosis Skin ulcer of toe of right foot, limited to breakdown of skin (HCC)- Primary PAD (peripheral artery disease) (HCC) Unspecified peripheral vascular disease Aftercare following surgery of the circulatory system Aftercare following surgery of the circulatory system, NEC documented in this encounter [facility] [place] Diagnosis Skin ulcer of toe of right foot, limited to breakdown of skin (HCC) PAD (peripheral artery disease) (HCC) Unspecified peripheral vascular disease Aftercare following surgery of the circulatory system Aftercare following surgery of the circulatory system, NEC documented [facility] [place]* Diagnosis Aftercare following surgery of the circulatory system- Primary Aftercare following surgery of the circulatory system, NEC PAD (peripheral artery disease) (HCC) Unspecified peripheral vascular disease [facility] [place] [facility]* Diagnosis Hemorrhagic choroidal detachment [...] Primary documented in this encounter [facility] for referral (narrative)No reason for referral information availableWKindred Hospital [facility] Work Phone: Reason for visit Narrative* Imaging (Routine) - Closed Specialty Diagnoses / Procedures Referred By Elvin leyva Referred To Contact Cardiology Diagnoses Paroxysmal atrial fibrillation (HCC) Procedures Transthoracic echocardiogram (TTE) complete with contrast, bubble, strain, and 3D PRN MO ECHO TTHRC R-T 2D W/WOM-MODE COMPL SPEC&COLR D MO TTE W OR WO FOL WCNICK,Jared De La Garza MD [address] [place] [phone] Phone: tel: fax: Referral ID Status Reason Start Date Expiration Date Visits Re quested Visits Authorized [id number] Closed 04/20/2024 04/20/2025 1 1 [facility] for visit Narrative* Auth/Cert (Routine) Specialty Diagnoses / Procedures Referred By Elvin t Referred To Contact Diagnoses Aspiration pneumonitis (CMS/HCC) (HCC) LORENZA (acute kidney injury) (HCC) Vomiting and diarrhea Procedures . Abbi Long, [address] [place] [address] Phone: tel: fax: [facility] [address] [place] [address] Phone: tel: Referral ID Status Reason Start Date Expiration Date Visits Re quested Visits Authorized [id number] 1 1 [facility] N[facility]* Auth/Cert (Routine) Specialty Diagnoses [...] CATH RS&I CHG AORTOGRAPHY ABDOMINAL SERIALOGRAPHY RS&I MO INTRODUCTION CATHETER AORTA MO REVSC OPN/PRG FEM/POP W/ANGIOPLASTY UNI MO REVSC OPN/PRQ TIB/PAMELA W/ANGIOPLASTY UNI MO REVSC OPN/PRQ TIB/PAMELA W/STNT/ANGIOP SM VSL MO REVSC OPN/PRQ FEM/POP W/STNT/ANGIOP SM VSL AORTOILIAC ANGIOGRAPHY, RIGHT LOWER EXTREMITY ANGIOGRAPHY WITH RUNOFF, POSSIBLE SUPERFICIAL FEMORAL ARTERY/POPLITEAL/TIBIAL ANGIOPLASTY/STENTING Kristyn Blankenship MD [address] [address] Phone: tel: fax: [facility] MAIN OR [address] [place] [address] Phone: tel: Referral ID Status Reason Start Date Expiration Date Visits Re quested Visits Authorized [id number] 1 1 [facility] N[facility]* Imaging (Routine) - Closed Specialty Diagnoses / Procedures Referred By Elvin leyva Referred To Contact Vascular Surgery / Radiology Diagnoses Skin ulcer of toe of right foot, limited to breakdown of skin (HCC) PAD (peripheral artery disease) (HCC) Aftercare following surgery of the circulatory system Procedures Vascular US lower extremity arterial duplex right with MICHELLE Kristyn Blankenship MD [address] [address] Phone: tel: fax: [facility] [address] [place] [address] Phone: tel: fax: Referral ID Status Reason Start Date Expiration Date Visits Re quested Visits Authorized [id number] Closed 12/05/2024 12/05/2025 1 1 [facility] Discharge Instructions * Attachments The following attachments cannot be sent through Care Everywhere. 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 Parts Assembler Expl anation Power of Lead Sql Developer 04/16/2024 1:26 PM Power of Lead Sql Developer 04/06/2024 10:04 AM Date Activated Date Inactivated [...] Documents on File Type Date Recorded Patient Battery Parts Assembler Expl anation Advance Directive(s) 06/27/2024 12:58 PM [...] Documents on File Type Date Recorded Patient Battery Parts Assembler Expl anation Advance Directive(s) 06/27/2024 12:58 PM [...] Documents on File Type Date Recorded Patient Battery Parts Assembler Expl anation DNR (Do Not Resuscitate) 07/13/2024 10:35 AM Power of Lead Sql Developer 04/16/2024 1:26 PM Power of Lead Sql Developer 04/06/2024 10:04 AM Date Activated Date Inactivated [...] Documents on File Type Date Recorded Patient Battery Parts Assembler Expl anation DNR (Do Not Resuscitate) 07/13/2024 10:35 AM Power of Lead Sql Developer 04/16/2024 1:26 PM Power of Lead Sql Developer 04/06/2024 10:04 AM Date Activated Date Inactivated [...] First Alternate Health Care Agent Nadira Castillo Syjwwzys-yd-ebq First Alternat e Health Care Agent Healthcare Agents on File Name Relationship Healthcare Agent Relationship Communication Damaris DO NOT CALL-TERMINALLY ILL [place] Friend First Alternate Health Care Agent Nadira Castillo Uusjhbwp-[id number] First Alternat e Health Care Agent Healthcare Agents on File Name Relationship Healthcare Agent Relationship Communication Damaris DO NOT CALL-TERMINALLY ILL [place] Friend First Alternate Health Care Agent Nadira Castillo Dyshpxwf-xs-gnq First Alternat e Health Care Agent Date Activated Date Inactivated Comments 08/03/2024 10:17 AM 08/16/2024 4:47 PM Healthcare Agents on File Name Relationship Healthcare Agent Relationship Communication Damaris DO NOT CALL-TERMINALLY ILL [place] Friend First Alternate Health Care Agent Nadira Castillo Dxbkuwwq-ul-ogt First Alternat e Health Care Agent Healthcare Agents on File Name Relationship Healthcare Agent Relationship Communication Damaris DO NOT CALL-TERMINALLY ILL [place] Friend First Alternate Health Care Agent Nadira Castillo Hkaxfmjf-fk-pzh First Alternat e Health Care Agent Healthcare Agents on File Name Relationship Healthcare Agent Relationship Communication Damaris DO NOT CALL-TERMINALLY ILL [place] Friend First Alternate Health Care Agent Nadira Castillo Ivahzkyl-nj-lfj First Alternat e Health Care Agent Healthcare Agents on File Name Relationship Healthcare Agent Relationshi p Communication Nadira Castillo Tjvalbio-al-sec First Alternat e Health Care Agent Healthcare Agents on File Name Relationship Healthcare Agent Relationshi p Communication Nadira Castillo Ouoiyzvl-kk-fga First Alternat e Health Care Agent Summary [...] gland swelling Procedures CONSULT TO ENT OFFICE/OUTPATIENT [facility] 60-74 MINUTES Jared Velazquez PA-C [address] [place] [address] Referral ID Status Reason Start Date Expiration Date Visits Requested Visits Authorized [id number] Authorized PCP Requested Referral 2 05/14/2023 1 1 Specialty Diagnoses / Procedures Referred By Elvin leyva Referred To Contact Radiology Diagnoses Localized swelling, mass and lump, neck Procedures CT soft tissue neck w IV contrast Jared Evans MD [address] [place] [phone] Referral ID Status Reason Start Date Expiration Date Visits Re quested Visits Authorized [id number] Closed 03/08/2023 04/07/2023 1 1 Specialty Diagnoses / Procedures Referred By Elvin leyva Referred To Contact Cardiology Diagnoses Other specified soft tissue disorders Procedures Vascular US lower extremity venous duplex left Jared Evans MD [address] [place] [phone] Referral ID Status Reason Start Date Expiration Date V isits Requested Visits Authorized [id number] Pending Review 05/24/2023 05/23/2024 1 1 Specialty Diagnoses / Procedures Referred By Elvin leyva Referred To Contact Radiology Diagnoses Abnormal findings on diagnostic imaging of other specified body structures Pain in left leg Procedures MR tibia fibula left w and wo IV contrast Jared Evans MD [address] [place] [phone] Referral ID Status Reason Start Date Expiration Date Visits Re quested Visits Authorized [id number] Closed 06/01/2023 05/31/2024 1 1 Health Concerns [...] AND TREAT OT H[facility] Main [address] [place] [address] Referral ID Status Reason Start Date Expiration Date Visits Re quested Visits Authorized [id number] 1 1 Reason Comments Hemorrhagic choroidal detachment [...] gland swelling Procedures CONSULT TO ENT OFFICE/OUTPATIENT [facility] 60-74 MINUTES Jared Velazquez PA-C [address] [place] [address] Referral ID Status Reason Start Date Expiration Date V isits Requested Visits Authorized [id number] Closed PCP Requested Referral 05/14/2022 05/14/2023 1 1 Reason Comments Follow Up Gyant interaction - F/U - attempt made. No answer. Reason Comments Follow Up Phone Call All Clear Specialty Diagnoses / Procedures Referred By Elvin leyva Referred To Contact Radiology Diagnoses Localized swelling, mass and lump, neck Procedures CT soft tissue neck w IV contrast Jared Evans MD [address] [place] [phone] Referral ID Status Reason Start Date Expiration Date Visits Re quested Visits Authorized [id number] Closed 03/08/2023 04/07/2023 1 1 Specialty Diagnoses / Procedures Referred By Elvin leyva Referred To Contact Cardiology Diagnoses Other specified soft tissue disorders Procedures Vascular US lower extremity venous duplex left Jared Evans MD [address] [place] [phone] Referral ID Status Reason Start Date Expiration Date V isits Requested Visits Authorized [id number] Pending Review 05/24/2023 05/23/2024 1 1 Specialty Diagnoses / Procedures Referred By Contac t Referred To Contact Radiology Diagnoses Abnormal findings on diagnostic imaging of other specified body structures Pain in left leg Procedures MR tibia fibula left w and wo IV contrast Jared Evans MD [address] [place] [phone] Referral ID Status Reason Start Date Expiration Date Visits Re quested Visits Authorized [id number] Closed 06/01/2023 05/31/2024 1 1 Reason Comments New Patient Mass left LE Specialty Diagnoses / Procedures Referred By Contac t Referred To Contact Sports Medicine Diagnoses Pain in leg, unspecified Jared Evans MD [address] [place] [phone] [place] [address] Referral ID Status Reason Start Date Expiration Date Visits Re quested Visits Authorized [id number] Closed 07/06/2023 07/05/2024 1 1 Reason Comments Numbness Leg Swelling Specialty Diagnoses / Procedures Referred By Contac t Referred To Contact Diagnoses Right leg pain Peripheral arterial disease (HCC) Right leg weakness Atrial fibrillation, unspecified type (HCC) Procedures . Pratibha Avelar, [address] [place] [address] [phone] Referral ID Status Reason Start Date Expiration Date Visits Re quested Visits Authorized [id number] 1 1 Reason Comments Follow-up 1st follow up RLE me chanical thrombectomy 04/06/24 (Krzysztof) Reason Onset Date Comments Med Refill 04/27/2024 Specialty Diagnoses / Procedures Referred By Contac t Referred To Contact Diagnoses [I63.9] - Cerebral infarction [facility] [address] [place] [address] Referral ID Status Reason Start Date Expiration Date V isits Requested Visits Authorized [id number] New Request 06/20/2024 08/19/2024 Reason Comments Eye Problem Pt reports blurred v ision, dizziness, and headache. LNW 07/04/24 @ 2130. Hx of strokes x 2, HTN, Afib, and right eye retinal detachment. Specialty Diagnoses / Procedures Referred By Elvin t Referred To Contact Diagnoses Retinal detachment, right Vision loss of right eye Procedures . Silvio Peres MD [address] [place] [address] Phone: tel: fax: [facility] EMERGENCY DEPT [address] [place] [phone] Phone: tel: Referral ID Status Reason Start Date Expiration Date Visits Re quested Visits Authorized [id number] 1 1 Reason Comments Eye Pain Right [...] OF VITREOUS, CHOROIDAL FLUID, PARS PLANA APPROACH [facility] [address] [address] Referral ID Status Reason Start Date Expiration Date Visits Re quested Visits Authorized [id number] 1 1 Reason Comments 1 week post [...] and diarrhea Procedures . Abbi Long DO [address] [place] [address] Phone: tel: fax: [facility] [address] [place] [phone] Phone: tel: Referral ID Status Reason Start Date Expiration Date Visits Re quested Visits Authorized [id number] 1 1 Reason Comments Follow-up 3 month follow up, P AD check ([facility]) Reason Comments Post-op (Ophthalmology) Right Eye 1 marisela h Reason Comments Post op OD Reason Comments Follow-up R leg pain with grea t toe wound-PVR and CTA w runoff 03/2024 Reason Comments Follow-up 1st follow up RLE an juliana, possible SFA/pop/tib angioplasty/stenting 11/22/24 Reason Comments 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; 2nd follow up RLE angio, SFA/pop/tib angioplasty/stenting 11/22/24 ([facility] [phone]) Reason Comments Post-op (Ophthalmology) Right Eye Retinal Detachment OD Eye Crusting OD In the mornings Reason Comments Follow-up INFORMATION SOURCE (unrecogn ized section and content) DATE CREATED AUTHOR 03/13/2020 [facility] DATE CREATED AUTHOR AUTHOR'S ORGANIZ ATION 06/30/2022 [facility] DATE CREATED AUTHOR AUTHOR'S ORGANIZ ATION 07/10/2024 [facility] DATE CREATED AUTHOR AUTHOR'S ORGANIZ ATION 12/14/2024 [facility] DATE CREATED AUTHOR AUTHOR'S ORGANIZ ATION 01/05/2025 [facility] DATE CREATED AUTHOR AUTHOR'S ORGANIZ ATION 03/17/2025 [facility] DATE CREATED AUTHOR AUTHOR'S ORGANIZ ATION 05/29/2025 [facility] Source Comments (unrecognize d section and content) In the event this informatio n is protected by the Federal Confidentiality of Alcohol and Drug Abuse Patient Records regulations: The Federal rules restrict any use of the information to criminally investigate or prosecute any alcohol or drug abuse patient.[facility] the event this information is protected by the Federal Confidentiality of Alcohol and Drug Abuse Patient Records regulations: The Federal rules restrict any use of the information to criminally investigate or prosecute any alcohol or drug abuse patient.[facility] Hospital[facility] the event this information is protected by the Federal Confidentiality of Alcohol and Drug Abuse Patient Records regulations: The Federal rules restrict any use of the information to criminally investigate or prosecute any alcohol or drug abuse patient.[facility] Hospital[facility] the event this information is protected by the Federal Confidentiality of Alcohol and Drug Abuse Patient Records regulations: The Federal rules restrict any use of the information to criminally investigate or prosecute any alcohol or drug abuse patient.[facility] Hospital[facility] the event this information is protected by the Federal Confidentiality of Alcohol and Drug Abuse Patient Records regulations: The Federal rules restrict any use of the information to criminally investigate or prosecute any alcohol or drug abuse patient.[facility] HospitalIn the event this information is protected by the Federal Confidentiality of Alcohol and Drug Abuse Patient Records regulations: The Federal rules restrict any use of the information to criminally investigate or prosecute any alcohol or drug abuse patient.[facility] HospitalIn the event this information is protected by the Federal Confidentiality of Alcohol and Drug Abuse Patient Records regulations: The Federal rules restrict any use of the information to criminally investigate or prosecute any alcohol or drug abuse patient.[facility] HospitalIn the event this information is protected by the Federal Confidentiality of Alcohol and Drug Abuse Patient Records regulations: The Federal rules restrict any use of the information to criminally investigate or prosecute any alcohol or drug abuse patient.[facility] HospitalIn the event this information is protected by the Federal Confidentiality of Alcohol and Drug Abuse Patient Records regulations: The Federal rules restrict any use of the information to criminally investigate or prosecute any alcohol or drug abuse patient.[facility] HospitalIn the event this information is protected by the Federal Confidentiality of Alcohol and Drug Abuse Patient Records regulations: The Federal rules restrict any use of the information to criminally investigate or prosecute any alcohol or drug abuse patient.[facility] HospitalIn the event this information is protected by the Federal Confidentiality of Alcohol and Drug Abuse Patient Records regulations: The Federal rules restrict any use of the information to criminally investigate or prosecute any alcohol or drug abuse patient.[facility] HospitalIn the event this information is protected by the Federal Confidentiality of Alcohol and Drug Abuse Patient Records regulations: The Federal rules restrict any use of the information to criminally investigate or prosecute any alcohol or drug abuse patient.[facility] HospitalIn the event this information is protected by the Federal Confidentiality of Alcohol and Drug Abuse Patient Records regulations: The Federal rules restrict any use of the information to criminally investigate or prosecute any alcohol or drug abuse patient.[facility] HospitalIn the event this information is protected by the Federal Confidentiality of Alcohol and Drug Abuse Patient Records regulations: The Federal rules restrict any use of the information to criminally investigate or prosecute any alcohol or drug abuse patient.[facility] HospitalIn the event this information is protected by the Federal Confidentiality of Alcohol and Drug Abuse Patient Records regulations: The Federal rules restrict any use of the information to criminally investigate or prosecute any alcohol or drug abuse patient.[facility] HospitalIn the event this information is protected by the Federal Confidentiality of Alcohol and Drug Abuse Patient Records regulations: The Federal rules restrict any use of the information to criminally investigate or prosecute any alcohol or drug abuse patient.[facility] HospitalIn the event this information is protected by the Federal Confidentiality of Alcohol and Drug Abuse Patient Records regulations: The Federal rules restrict any use of the information to criminally investigate or prosecute any alcohol or drug abuse patient.[facility] HospitalIn the event this information is protected by the Federal Confidentiality of Alcohol and Drug Abuse Patient Records regulations: The Federal rules restrict any use of the information to criminally investigate or prosecute any alcohol or drug abuse patient.[facility] HospitalIn the event this information is protected by the Federal Confidentiality of Alcohol and Drug Abuse Patient Records regulations: The Federal rules restrict any use of the information to criminally investigate or prosecute any alcohol or drug abuse patient.[facility] Care Teams (unrecognized sec tion and content) Project Buyer Relationship Specialty Start Date End Date Pcp, No PCP - General 01/30/22 08/17/22 Project Buyer Relationship Specialty Start Date End Date Pcp, No PCP - General 01/30/22 08/17/22 Project Buyer Relationship Specialty Start Date End Date Jared Evans MD [address] [place] [address] PCP - General Family Medicine 05/18/22 Project Buyer Relationship Specialty Start Date End Date Jared Evans MD [address] [place] [address] PCP - General Family Medicine 05/18/22 Project Buyer Relationship Specialty Start Date End Date Jared Evans MD [address] [place] [address] PCP - General Family Medicine 05/18/22 Project Buyer Relationship Specialty Start Date End Date Jared Evans MD [address] [place] [address] PCP - General 03/06/20 Project Buyer Relationship Specialty Start Date End Date Jared Evans MD [address] [place] [address] PCP - General 03/06/20 Project Buyer Relationship Specialty Start Date End Date Jared Evans MD [address] [place] [address] PCP - General 03/06/20 Project Buyer Relationship Specialty Start Date End Date Jared Evans MD [address] [place] [address] PCP - General 03/06/20 Project Buyer Relationship Specialty Start Date End Date Jared Evans MD [address] [place] [address] PCP - General 03/06/20 Project Buyer Relationship Specialty Start Date End Date Jared Evans MD [address] [place] [address] PCP - General 03/06/20 Project Buyer Relationship Specialty Start Date End Date Jared Evans MD [address] [place] [address] PCP - General 03/06/20 Project Buyer Relationship Specialty Start Date End Date Jared Evans MD [address] [place] [address] PCP - General 03/06/20 Project Buyer Relationship Specialty Start Date End Date Jared Evans MD [address] [place] [address] PCP - General 03/06/20 Project Buyer Relationship Specialty Start Date End Date Jared Evans MD [address] [place] [address] PCP - General 03/06/20 Project Buyer Relationship Specialty Start Date End Date Jared Evans MD [address] [place] [address] PCP - General 03/06/20 Project Buyer Relationship Specialty Start Date End Date Jared Evans MD [address] [place] [address] PCP - General 03/06/20 Project Buyer Relationship Specialty Start Date End Date Jared Evans MD [address] [place] [address] PCP - General 03/06/20 Henok Hernandez PA-C [address] [place] [address] Physician Central Service Tech Physician Central Service Tech 04/19/24 Project Buyer Relationship Specialty Start Date End Date Jared Evans MD [address] [place] [address] PCP - General 03/06/20 Henok Hernandez PA-C [address] [place] [address] Physician Central Service Tech Physician Central Service Tech 04/19/24 Project Buyer Relationship Specialty Start Date End Date Jared Evans MD [address] [place] [address] PCP - General 03/06/20 Henok Hernandez PA-C [address] [place] [address] Physician Central Service Tech Physician 04/19/24 Project Buyer Relationship Specialty Start Date End Date Jared Evans MD [address] [place] [address] PCP - General 03/06/20 Henok Hernandez PA-C [address] [place] [address] Physician Central Service Tech Physician Central Service Tech 04/19/24 Project Buyer Relationship Specialty Start Date End Date Jared Evans MD [address] [place] [address] PCP - General 03/06/20 Henok Hernandez PA-C [address] [place] [address] Physician Central Service Tech Physician 04/19/24 Project Buyer Relationship Specialty Start Date End Date Jared Evans MD [address] [place] [address] PCP - General 03/06/20 Henok Lantigua PA-C [address] [address] Physician Central Service Tech Physician Central Service Tech 04/19/24 Project Buyer Relationship Specialty Start Date End Date Jared Evans MD [address] [place] [address] PCP - General 03/06/20 Henok Lantigua PA-C [address] [address] Physician Central Service Tech Physician Central Service Tech 04/19/24 Project Buyer Relationship Specialty Start Date End Date Jared Evans MD [address] [place] [address] PCP - General Family Medicine 05/18/22 Project Buyer Relationship Specialty Start Date End Date Jared Evans MD [address] [place] [address] PCP - General Family Medicine 05/18/22 Project Buyer Relationship Specialty Start Date End Date Jared Evans MD [address] [place] [address] PCP - General 03/06/20 Henok Lantigua PA-C [address] [address] Physician Central Service Tech Physician Central Service Tech 04/19/24 Project Buyer Relationship Specialty Start Date End Date Jared Evans MD [address] [place] [address] PCP - General Family Medicine 05/18/22 Project Buyer Relationship Specialty Start Date End Date Jared Evans MD [address] [place] [address] PCP - General Family Medicine 05/18/22 Project Buyer Relationship Specialty Start Date End Date Jared Evans MD [address] [place] [address] PCP - General Family Medicine 05/18/22 Project Buyer Relationship Specialty Start Date End Date Jared Evans MD [address] [place] [address] PCP - General Family Medicine 05/18/22 Project Buyer Relationship Specialty Start Date End Date Jared Evans MD [address] [place] [address] PCP - General Family Medicine 05/18/22 Project Buyer Relationship Specialty Start Date End Date Jared Evans MD [address] [place] [address] PCP - General 03/06/20 Henok Lantigua PA-C [address] [place] [address] Physician Central Service Tech Physician Central Service Tech 04/19/24 Project Buyer Relationship Specialty Start Date End Date Jared Evans MD [address] [place] [address] PCP - General Family Medicine 05/18/22 Project Buyer Relationship Specialty Start Date End Date Jared Evans MD [address] [place] [address] PCP - General Family Medicine 05/18/22 Project Buyer Relationship Specialty Start Date End Date Jared Evans MD [address] [place] [address] PCP - General Family Medicine 05/18/22 Project Buyer Relationship Specialty Start Date End Date Jared Evans MD [address] [place] [address] PCP - General 03/06/20 Henok Lantigua PA-C [address] [address] Physician Central Service Tech Physician Central Service Tech 04/19/24 Project Buyer Relationship Specialty Start Date End Date Jared Evans MD [address] [place] [address] PCP - General 03/06/20 Henok Lantigua PA-C [address] [address] Physician Central Service Tech Physician Central Service Tech 04/19/24 Project Buyer Relationship Specialty Start Date End Date Jared Evans MD [address] [facility] [place] [address] PCP - General 03/06/20 Henok Lantigua PA-C [address] [address] Physician Central Service Tech Physician Central Service Tech 04/19/24 [facility] [address] Assisted Facility 08/22/24 Project Buyer Relationship Specialty Start Date End Date Jared Evans MD [address] [place] [address] PCP - General Family Medicine 05/18/22 Project Buyer Relationship Specialty Start Date End Date Jared Evans MD [address] [place], [place] [id number] PCP - General Family Medicine 05/18/22 Team [...] October 08, 2024 End: October 08, 2024 Project Buyer Relationship Specialty Start Date End Date Jared Evans MD [address] [place] [address] PCP - General 03/06/20 Henok Lantigua PA-C [address] [address] Physician Central Service Tech Physician Central Service Tech 04/19/24 [facility] [address] [place] [address] Assisted Facility 08/22/24 Project Buyer Relationship Specialty Start Date End Date Jared Evans MD [address] [facility] [place] [address] PCP - General 03/06/20 eHnok Lantigua PA-C [address] [address] Physician Central Service Tech Physician Central Service Tech [facility]/19/[facility] [address] [place] [address] Assisted Facility 08/22/24 Project Buyer Relationship Specialty Start Date End Date Jared Evans MD [address] [facility] [place] [address] PCP - General 03/06/20 Henok Lantigua PA-C [address] [place] [address] Physician Central Service Tech Physician Central Service Tech 04/19/24 [facility] [address] [place], [place] [address] Assisted Facility 08/22/24 Project Buyer Relationship Specialty Start Date End Date Jared Evans MD [address] [facility] [place] [address] PCP - General 03/06/20 Henok Lantigua PA-C [address] [place] [address] Physician Central Service Tech Physician Central Service Tech 04/19/24 [facility] [address] [place] [address] Assisted Facility 08/22/24 Project Buyer Relationship Specialty Start Date End Date Jared Evans MD [address] [place] [address] PCP - General 03/06/20 Henok Lantigua PA-C [address] [address] Physician Central Service Tech Physician Central Service Tech 04/19/24 [facility] [address] [place] [address] Assisted Facility 08/22/24 Project Buyer Relationship Specialty Start Date End Date Megan Montoya [facility] [place] [phone] PCP - General Internal Medicine 12/13/24 Henok Lantigua PA-C [address] [place] [address] Physician Central Service Tech Physician Central Service Tech 04/19/24 [facility] [address] [place] [address] Assisted Facility 08/22/24 Project Buyer Relationship Specialty Start Date End Date Megan Montoya [address] [place] [phone] PCP - General Internal Medicine 12/13/24 Henok Lantigua PA-C [address] [place] [address] Physician Central Service Tech Physician Central Service Tech 04/19/24 Kristyn Blankenship MD [address] [place] [address] Consulting Physician Vascular Surgery 12/24/[address] [address] Assisted Facility 08/22/24 Project Buyer Relationship Specialty Start Date End Date Jared Evans MD [address] [place] [address] PCP - General Family Medicine 05/18/22 Project Buyer Relationship Specialty Start Date End Date Jared Evans MD [address] [place] [address] PCP - General Family Medicine 05/18/22 Project Buyer Relationship Specialty Start Date End Date Megan Montoya [address] [place] [phone] PCP - General Internal Medicine 12/13/24 Henok Lantigua PA-C [address] [place] [address] Physician Central Service Tech Physician Central Service Tech 04/19/24 Kristyn Blankenship MD [address] [place] [address] Consulting Physician Vascular Surgery 12/24/24 [facility] [address] [place] [address] Assisted Facility 08/22/24 Project Buyer Relationship Specialty Start Date End Date Megan Montoya [address] [place] [address] PCP - General Internal Medicine 12/13/24 Henok Lantigua PA-C [address] [facility] [address] [place] [address] Physician Central Service Tech Physician Central Service Tech 04/19/24 Kristyn Blankenship MD [address] [place] [address] Consulting Physician Vascular Surgery 12/24/24 Andre Patel MD [address] [place] [address] Consulting Physician Hematology and Oncology 03/15/25 [facility] [address] [place] [address] Assisted Facility 08/22/24 Scheduled Active and Recently Administ [...] sedation for opioid reversal - MUST notify principal automation engineer provider immediately after first dose, may give [...] Lopes RN) 1103 (Given - Provider: Cecilia oLpes, RADHA) polyethylene glycol (PEG) 3350 (Miralax) packet [...] Wanda Mendoza RN) 0945 (Given - Provider: Ccii Perez RN)214 (Given - Provider: Jessica Bailey [...] BE BASED ON THE PRIMARY CLINICAL RECORDS. [facility] [employer] [facility]. provides no warranty or guarantee of the accuracy or completeness of information in this document.
[2025-07-12 08:32] LABS: Prothrombin Time (Protime)PT. 28.2 SECONDS (11.7-14.9)
== END ==
LOC: OLS.SANC 04:00
PROVIDERS: Referring Provider Internal Medicine; Visit Provider Internal Medicine
DX: Z79.01 Long term (current) use of anticoagulants (principal)
CPT/HCPCS: 36415; 85610

== ENCOUNTER → 2025-07-15 05:00 | Outpatient (REF) | payer MEDICARE, SELFPAY ==
--- OUTSIDE RECORDS SUMMARY | 2025-07-15 04:02 | XMS RPT_ITS | CCD ---
Author Organization [facility] Care Team Providers Care Fringe Weaver Name Role Phone Maryuri King Primary Care Provider [phone] Jared Evans Primary Care Provider [phone] Pcp, No Primary Care Provider UnavailJared Mckinnon MD Primary Care Provider BERNIE BIRD Admitting Unavailable IWONA CHU Attending Unavailable MING LOSON Consulting Unavailable SIM ELIZABETH Attending Unavailable PRIMO DODD Referring Unavailable Jared Evans MD Primary Care Provider [phone] Jared Evans MD Primary Care Provider Henok Hernandez PA-C Unavailable Henok Lantigua PA-C Unavailable [phone] Jared Evans MD Primary Care Provider SYSTEM, PROVIDER NOT IN Referring Unavaila Megan Rice Attending Provider Unavailab Megan Porras Referring Provider Unavailab Megan Porras Attending Provider Unavailab Megan Porras Referring Provider Unavailab TORSTEN Hernandez Consulting Unavailable JARED EVANS Primary Care Unavailable FELICIA COREAS Admitting Unavailable DON EDWARDS Attending Unavailable Megan Montoya Primary Care Provider [phone] Krzysztof BROWNE, Kristyn Unavailable RED HENDERSON Referring [...] Primary Care Unavailable SELF Referring Unavailable EVANS, RUSHVILLE N Primary Care Unavailable SELF Referring Unavailable EVANS, RUSHVILLE N Primary Care Unavailable MAMMO, SAVANA A [...] Facility (20 sources) Amoxicillin Drug Allergy 0 [place] (20 sources) fluticasone / salmeterol Drug Allergy 0 Intolerance [place] (20 sources) Acetaminophen / oxyCODONE; Translations: [OXYCODONE-ACETAM INOPHEN] Drug Allergy 2 Itching [facility] Repository (9 sources) Ampicillin; Translations: [AMPICILLIN] Drug Allergy 4 Unknown [facility] (13 sources) Amoxicillin-Pot Clavulanate Drug Allergy 5 [facility] (1 source) FLUTICASONE PROPION-SALMETERO L; Translations: [FLUTICASONE PROPION-SALMETERO L] Propensity to adverse reactions to drug (disorder) 0 [facility] Repository Medications Current Medications Medication [...] Comment on above: Take 1 tablet by [facility] every 8 hours as needed for pain for up to 3 days. [id number] 200 actuat albuterol 0.09 mg/actuat metered dose [...] the event of a Fluress shortage, administer [place]-Fluor 1 drop into both eyes as directed for applanation tonometry, [facility] MED ORDERS Start: 07-12-2024 End: 07-12-2024 fluorescein-benoxinate 0.3-0 .4 % 1 Drop (FLURESS) bisacodyl 5 mg delayed release oral tablet (4 sources) Stimulant Laxative bisacodyl (Du lcolax) 10 MG suppository Insert into the rectum Daily as needed for constipation. Active take 1 tablet by [facility] every twenty-four hours as needed for [...] Comment on above: Take 2 tablets by [facility] every 12 hours for 3 [...] Comment on above: Take 1 tablet by [facility] every 12 hours for 7 days. [...] for dry skin. Active lactobacillus rhamnosus gg [id number] unt oral capsule (2 sources) Start: 06-29-20 End: 07-29-19 take 1 capsule by mouth once daily lactobacillus rhamnosus (CULTURELLE) 10 billion cell capsule Take 1 capsule by mouth once daily. 30 capsule 0 06/29/2022 07/29/2022 Active Comment on above: Take 1 capsule by [facility] once daily. lidocaine 0.04 mg/mg medicated [...] for dilation PROT[facility] FROM LIGHT, [facility] Start: 07-16-2024 End: 07-16-2024 PHENYLephrine 2.5 % 1 Drop ( AK-DILATE, KEL-SYNEPHRINE) Start: 07-16-2024 End: 07-16-2024 1 Drop, RIGHT EYE, DIRECT ED, Starting on Tue07/16/24 at 0900, Until Tue07/16/24 at 2059, Administer for dilation PROTECT FROM LIGHT Start: 07-09-2024 End: 07-09-2024 PHENYLephrine 2.5 % 1 Drop ( AK-DILATE, KEL-SYNEPHRINE) polyethylene glycol 3350 16424 mg powder for oral solution (11 sources) [...] lower extremity (HCC) Take as directed by [facility] (90 tablets = 90 day [...] lower extremity (HCC) Take as directed by [facility] (45 tablets= 30 day supply) 45 tablet 1 04/27/2024 Active Start: 04-09-2024 7.5 mg, Oral, Once Warfarin, On Maida 04/12/24 at 1700, For 1 dose Start: 04-07-2024 warfarin (Coum jay jay) 5 MG tablet Take 1 tablet (5mg) on 04/13 in the evening Take 1.5 tablets (7.5mg) on 04/14 Take 1 tablet (5mg) on 04/15 Follow up with [facility] pharmacy for further dosing 30 tablet 04/13/2024 [...] sodium chloride 0.9 % 100 mL IVPB (Add-[place]) (2 sources) Start: End: take 3000 mg intravenously every six hours 3,000 mg, IntraVENous, at 200 mL/hr, Administer over 30 Minutes, Every 6 hours, First dose on Tue08/03/24 at 1200, For 18 doses, ADD-[place] bag, Suspected Indication (Select all that apply): [...] Anesthetic Start: 03-07-2020 End: 03-07-2020 lidocaine-EPINEPHrine 1 percent-1:[id number] injection 8 mL ergocalciferol 1.25 mg oral capsule (3 sources) Provitamin D2 Compound End: 07-05-2024 take 1 capsule by mouth every week ergocalciferol (Vitamin D2) 1.25 MG (63879 UT) capsule Take 1.25 mg by mouth [...] Comment on above: Take 1 tablet by [facility] twice daily before meals (0600/1600). 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 anticoagulants; Translations: [prison (current) [...] sources) Long-term current use of anticoagulant; Translations: [prison (current) use of anticoagulants] Onset: 0 03-07-2020 Episodic Other aftercare (2 sources) Encounter for surgical aftercare following surgery on the circulatory system; Translations: [Encounter for surgical aftercare following surgery on the circulatory system] Onset: 5 Episodic Other aftercare (1 source) Other computer terminal 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; Translations: [Other snf (current) drug therapy] Onset: 5 Episodic Other [...] Coag (PPP) [Relative time] 2.0 {INR} Normal [facility] Comment on above: Result Comment: Crit ical Value > 4.0 Performed By: #### L 300.3900 #### [facility] [address] [place], [place], [id number] Protime Coagsen 22.2 SEC High 11.7-14.9 [facility] Comment on above: Performed By: #### L 300.3900 #### [facility] [address] [place], [address] Prothrombin Time w/INRon INR Coag (PPP) [Relative time] 2.0 {INR} Normal [facility] Comment on above: Order Comment: 104-1 Performed By: #### L 9200.0000 #### [facility] [address] [place], [address] PT Coag (PPP) [Time] 23.2 s High 11.7-14.9 [facility] Comment on above: Order Comment: 104-1 Performed By: #### L 9200.0000 #### [facility] [address] [place], [address] Protime w/INR Fingerstickon 05-09-2025 INR Coag (PPP) [Relative time] 2.4 {INR} Normal [facility] Comment on above: Result Comment: Crit ical Value > 4.0 Performed By: #### L 300.3900 #### [facility] [address] [place], [address] Protime Coagsen 25.6 SEC High 11.7-14.9 [facility] Comment on above: Performed By: #### L 300.3900 #### [facility] [address] [place], [address] Prothrombin Time w/INRon INR Coag (PPP) [Relative time] 4.8 {INR} Invalid Interpretation Code [facility] Comment on above: Order Comment: 104-1 Performed By: #### L 300.3900 #### [facility] [address] [place], [address] PT Coag (PPP) [Time] 46.2 s High 11.7-14.9 [facility] Comment on above: Order Comment: 104-1 Performed By: #### L 300.3900 #### [facility] [address] [place], [address] Protime w/INR Fingerstickon 05-06-2025 INR Coag (PPP) [Relative time] 5.5 {INR} Invalid Interpretation Code [facility] Comment on above: Result Comment: Crit ical Value > 4.0 Performed By: #### L 9200.0000 #### [facility] [address] [place], [address] Protime Coagsen 53.4 SEC High 11.7-14.9 [facility] Comment on above: Performed By: #### L 9200.0000 #### [facility] [address] [place], [address] Prothrombin Time w/INRon INR Coag (PPP) [Relative time] 3.9 {INR} Normal [facility] Comment on above: Order Comment: 104-1 Performed By: #### L 300.3900 #### [facility] [address] [place], [address] PT Coag (PPP) [Time] 39.5 s High 11.7-14.9 [facility] Comment on above: Order Comment: 104-1 Performed By: #### L 300.3900 #### [facility] [address] [place], [address] Protime w/INR Fingerstickon 04-29-2025 INR Coag (PPP) [Relative time] 4.1 {INR} Invalid Interpretation Code [facility] Comment on above: Result Comment: Crit ical Value > 4.0 Performed By: #### L 300.3900 #### [facility] [address] [place], [address] Protime Coagsen 41.7 SEC High 11.7-14.9 [facility] Comment on above: Performed By: #### L 300.3900 #### [facility] [address] [place], [address] Basic Metabolic Profile (BMP )on 04-04-2025 BUN/CRE 19.9 RATIO Normal 10-20 [facility] Comment on above: Order Comment: 104-1 Performed By: #### L 300.3900 #### [facility] [address] [place], [address] Calcium [Mass/Vol] 8.9 mg/dL Normal 7.6-11.[address] [facility] Comment on above: Order Comment: 104-1 Performed By: #### L 300.3900 #### [facility] [address] [place], [address] Chloride [Moles/Vol] 109 mmol/L High 98-108 [facility] Comment on above: Order Comment: 104-1 Performed By: #### L 300.3900 #### [facility] [address] [place], [address] CO2 [Moles/Vol] 20.4 mmol/L Low 21.0-32.0 [facility] Comment on above: Order Comment: 104-1 Performed By: #### L 300.3900 #### [facility] [address] [place], [address] Creatinine [Mass/Vol] 0.98 mg/dL Normal 0.70-1.20 [facility] Comment on above: Order Comment: 104-1 Performed By: #### L 300.3900 #### [facility] [address] [place], [address] GAP 10 Normal 5-15 [facility] Comment on above: Order Comment: 104-1 Performed By: #### L 300.3900 #### [facility] [address] [place], [address] GFR/1.73 sq M.predicted among non-blacks MDRD (S/P/Bld) [Vol rate/Area] 56 mL/min/{1.73_m2} Low >60 [facility] Comment on above: Order Comment: 104-1 Result Comment: mL/m in/1.73m2 CKD-EPI Creatinine Equation (2020) Performed By: #### L 300.3900 #### [facility] [address] [place], [address] Glucose [Mass/Vol] 87 mg/dL Normal 70-[address] [facility] Comment on above: Order Comment: 104-1 Performed By: #### L 300.3900 #### [facility] [address] [place], [address] Potassium [Moles/Vol] 5.0 mmol/L Normal 3.3-5.1 [facility] Comment on above: Order Comment: 104-1 Performed By: #### L 300.3900 #### [facility] [address] [place], [address] Sodium [Moles/Vol] 139 mmol/L Normal 133-[address] [facility] Comment on above: Order Comment: 104-1 Performed By: #### L 300.3900 #### [facility] [address] [place], [address] Urea nitrogen [Mass/Vol] 20 mg/dL High 4-19 [facility] Comment on above: Order Comment: 104-1 Performed By: #### L 300.3900 #### [facility] [address] [place], [address] CBC-Complete Blood Cnt No Di ffon 04-04-2025 Erythrocyte distribution width (RBC) [Ratio] 13.6 % Normal 11.6-14.6 [facility] Comment on above: Order Comment: 104-1 Performed By: #### L 300.3900 #### [facility] [address] [place], [address] Hematocrit (Bld) [Volume fraction] 32.6 % Low 37-47 [facility] Comment on above: Order Comment: 104-1 Performed By: #### L 300.3900 #### [facility] [address] [place], [address] Hemoglobin (Bld) [Mass/Vol] 10.7 g/dL Low 12.0-15.0 [facility] Comment on above: Order Comment: 104-1 Performed By: #### L 300.3900 #### [facility] [address] [place], [address] MCH (RBC) [Entitic mass] 30.0 pg Normal 27.0-32.0 [facility] Comment on above: Order Comment: 104-1 Performed By: #### L 300.3900 #### [facility] [address] [place], [address] MCHC (RBC) [Mass/Vol] 32.8 g/dL Normal 32-36 [facility] Comment on above: Order Comment: 104-1 Performed By: #### L 300.3900 #### [facility] [address] [place], [address] MCV (RBC) [Entitic vol] 91.3 fL Normal 81-99 [facility] Comment on above: Order Comment: 104-1 Performed By: #### L 300.3900 #### [facility] [address] [place], [address] Platelet mean volume (Bld) [Entitic vol] 9.8 fL Normal 6.2-12.0 [facility] Comment on above: Order Comment: 104-1 Performed By: #### L 300.3900 #### [facility] [address] [place], [address] Platelets (Bld) [#/Vol] 259 10*3/uL Normal 150-450 [facility] Comment on above: Order Comment: 104-1 Performed By: #### L 300.3900 #### [facility] [address] [place], [address] RBC (Bld) [#/Vol] 3.57 10*6/uL Low 4.2-5.4 [facility] Comment on above: Order Comment: 104-1 Performed By: #### L 300.3900 #### [facility] [address] [place], [address] RDW SD 46.1 fl High 35.1-43.9 [facility] Comment on above: Order Comment: 104-1 Performed By: #### L 300.3900 #### [facility] [address] [place], [address] WBC (Bld) [#/Vol] 4.2 10*3/uL Low 4.4-11.[address] [facility] Comment on above: Order Comment: 104-1 Performed By: #### L 300.3900 #### [facility] [address] [place], [address] Potassiumon 04-02-2025 Potassium [Moles/Vol] 5.3 mmol/L High 3.3-5.1 [facility] Comment on above: Order Comment: 104-1 Performed By: #### L 300.3900 #### [facility] [address] [place], [address] Basic Metabolic Profile (BMP )on 03-28-2025 BUN/CRE 17.4 RATIO Normal 10-20 [facility] Comment on above: Order Comment: 104.1 Performed By: #### L 9200.0000 #### [facility] [address] [place], [address] Calcium [Mass/Vol] 9.0 mg/dL Normal 7.6-11.[address] [facility] Comment on above: Order Comment: 104.1 Performed By: #### L 9200.0000 #### [facility] [address] [place], [address] Chloride [Moles/Vol] 108 mmol/L Normal 98-108 [facility] Comment on above: Order Comment: 104.1 Performed By: #### L 9200.0000 #### [facility] [address] [place], [address] CO2 [Moles/Vol] 21.1 mmol/L Normal 21.0-32.0 [facility] Comment on above: Order Comment: 104.1 Performed By: #### L 9200.0000 #### [facility] [address] [place], [address] Creatinine [Mass/Vol] 0.99 mg/dL Normal 0.70-1.20 [facility] Comment on above: Order Comment: 104.1 Performed By: #### L 9200.0000 #### [facility] [address] [place], [address] GAP 9 Normal 5-15 [facility] Comment on above: Order Comment: 104.1 Performed By: #### L 9200.0000 #### [facility] [address] [place], [address] GFR/1.73 sq M.predicted among non-blacks MDRD (S/P/Bld) [Vol rate/Area] 56 mL/min/{1.73_m2} Low >60 [facility] Comment on above: Order Comment: 104.1 Result Comment: mL/m in/1.73m2 CKD-EPI Creatinine Equation (2020) Performed By: #### L 9200.0000 #### [facility] [address] [place], [address] Glucose [Mass/Vol] 88 mg/dL Normal 70-[address] [facility] Comment on above: Order Comment: 104.1 Performed By: #### L 9200.0000 #### [facility] [address] [place], [address] Potassium [Moles/Vol] 5.2 mmol/L High 3.3-5.1 [facility] Comment on above: Order Comment: 104.1 Performed By: #### L 9200.0000 #### [facility] [address] [place], [address] Sodium [Moles/Vol] 138 mmol/L Normal 133-[address] [facility] Comment on above: Order Comment: 104.1 Performed By: #### L 9200.0000 #### [facility] [address] [place], [address] Urea nitrogen [Mass/Vol] 17 mg/dL Normal 4-19 [facility] Comment on above: Order Comment: 104.1 Performed By: #### L 9200.0000 #### [facility] [address] [place], [address] CBC-Complete Blood Cnt No Di ffon 03-28-2025 Erythrocyte distribution width (RBC) [Ratio] 13.7 % Normal 11.6-14.6 [facility] Comment on above: Order Comment: 104.1 Performed By: #### L 9200.0000 #### [facility] [address] [place], [address] Hematocrit (Bld) [Volume fraction] 31.6 % Low 37-47 [facility] Comment on above: Order Comment: 104.1 Performed By: #### L 9200.0000 #### [facility] [address] [place], [address] Hemoglobin (Bld) [Mass/Vol] 10.3 g/dL Low 12.0-15.0 [facility] Comment on above: Order Comment: 104.1 Performed By: #### L 9200.0000 #### [facility] [address] [place], [address] MCH (RBC) [Entitic mass] 29.7 pg Normal 27.0-32.0 [facility] Comment on above: Order Comment: 104.1 Performed By: #### L 9200.0000 #### [facility] [address] [place], [address] MCHC (RBC) [Mass/Vol] 32.6 g/dL Normal 32-36 [facility] Comment on above: Order Comment: 104.1 Performed By: #### L 9200.0000 #### [facility] [address] [place], [address] MCV (RBC) [Entitic vol] 91.1 fL Normal 81-99 [facility] Comment on above: Order Comment: 104.1 Performed By: #### L 9200.0000 #### [facility] [address] [place], [address] Platelet mean volume (Bld) [Entitic vol] 10.0 fL Normal 6.2-12.0 [facility] Comment on above: Order Comment: 104.1 Performed By: #### L 9200.0000 #### [facility] [address] [place], [address] Platelets (Bld) [#/Vol] 265 10*3/uL Normal 150-450 [facility] Comment on above: Order Comment: 104.1 Performed By: #### L 9200.0000 #### [facility] [address] [place], [address] RBC (Bld) [#/Vol] 3.47 10*6/uL Low 4.2-5.4 [facility] Comment on above: Order Comment: 104.1 Performed By: #### L 9200.0000 #### [facility] [address] [place], [address] RDW SD 45.8 fl High 35.1-43.9 [facility] Comment on above: Order Comment: 104.1 Performed By: #### L 9200.0000 #### [facility] [address] [place], [address] WBC (Bld) [#/Vol] 5.3 10*3/uL Normal 4.4-11.[address] [facility] Comment on above: Order Comment: 104.1 Performed By: #### L 9200.0000 #### [facility] [address] [place], [address] Prothrombin Time w/INRon INR Coag (PPP) [Relative time] 2.2 {INR} Normal [facility] Comment on above: Order Comment: 104.1 Performed By: #### L 9200.0000 #### [facility] [address] [place], [address] PT Coag (PPP) [Time] 24.5 s High 11.7-14.9 [facility] Comment on above: Order Comment: 104.1 Performed By: #### L 9200.0000 #### [facility] [address] [place], [address] Progress Noteon 03-15-2025 Progress Note Normal [facility] Protime w/INR Fingerstickon 03-04-2025 INR Coag (PPP) [Relative time] 2.3 {INR} Normal [facility] Comment on above: Result Comment: Crit ical Value > 4.0 Performed By: #### L 9200.0000 #### [facility] [address] [place], [address] Protime Coagsen 24.7 SEC High 11.7-14.9 [facility] Comment on above: Performed By: #### L 9200.0000 #### [facility] [address] [place], [address] 36on 02-27-2025 36 Letter mailed to patient [facility] 36on 02-26-2025 [address] [facility] Protime w/INR Fingerstickon 02-25-2025 INR Coag (PPP) [Relative time] 2.1 {INR} Normal [facility] Comment on above: Result Comment: Crit ical Value > 4.0 Performed By: #### L 9200.0000 #### [facility] [address] [place], [address] Protime Coagsen 23.3 SEC High 11.7-14.9 [facility] Comment on above: Performed By: #### L 9200.0000 #### [facility] [address] [place], [address] Basic Metabolic Profile (BMP )on 02-18-2025 BUN/CRE 22.7 RATIO High 10-20 [facility] Comment on above: Performed By: #### L 9200.0000 #### [facility] [address] [place], [address] Calcium [Mass/Vol] 9.2 mg/dL Normal 7.6-11.[address] [facility] Comment on above: Performed By: #### L 9200.0000 #### [facility] [address] [place], [address] Chloride [Moles/Vol] 108 mmol/L Normal 98-108 [facility] Comment on above: Performed By: #### L 9200.0000 #### [facility] [address] [place], [address] CO2 [Moles/Vol] 21.6 mmol/L Normal 21.0-32.0 [facility] Comment on above: Performed By: #### L 9200.0000 #### [facility] [address] [place], [address] Creatinine [Mass/Vol] 1.03 mg/dL Normal 0.70-1.20 [facility] Comment on above: Performed By: #### L 9200.0000 #### [facility] [address] [place], [address] GAP 9 Normal 5-15 [facility] Comment on above: Performed By: #### L 9200.0000 #### [facility] [address] [place], [address] GFR/1.73 sq M.predicted among non-blacks MDRD (S/P/Bld) [Vol rate/Area] 53 mL/min/{1.73_m2} Low >60 [facility] Comment on above: Result Comment: mL/m in/1.73m2 CKD-EPI Creatinine Equation (2020) Performed By: #### L 9200.0000 #### [facility] [address] [place], [address] Glucose [Mass/Vol] 91 mg/dL Normal 70-[address] [facility] Comment on above: Performed By: #### L 9200.0000 #### [facility] [address] [place], [address] Potassium [Moles/Vol] 5.2 mmol/L High 3.3-5.1 [facility] Comment on above: Performed By: #### L 9200.0000 #### [facility] [address] [place], [address] Sodium [Moles/Vol] 138 mmol/L Normal 133-[address] [facility] Comment on above: Performed By: #### L 9200.0000 #### [facility] [address] [place], [address] Urea nitrogen [Mass/Vol] 23 mg/dL High 4-19 [facility] Comment on above: Performed By: #### L 9200.0000 #### [facility] [address] [place], [address] CBC-Complete Blood Cnt No Di ffon 02-18-2025 Erythrocyte distribution width (RBC) [Ratio] 14.0 % Normal 11.6-14.6 [facility] Comment on above: Performed By: #### L 9200.0000 #### [facility] [address] [place], [address] Hematocrit (Bld) [Volume fraction] 31.6 % Low 37-47 [facility] Comment on above: Performed By: #### L 9200.0000 #### [facility] [address] [place], [address] Hemoglobin (Bld) [Mass/Vol] 10.2 g/dL Low 12.0-15.0 [facility] Comment on above: Performed By: #### L 9200.0000 #### [facility] [address] [place], [address] MCH (RBC) [Entitic mass] 30.0 pg Normal 27.0-32.0 [facility] Comment on above: Performed By: #### L 9200.0000 #### [facility] [address] [place], [address] MCHC (RBC) [Mass/Vol] 32.3 g/dL Normal 32-36 [facility] Comment on above: Performed By: #### L 9200.0000 #### [facility] [address] [place], [address] MCV (RBC) [Entitic vol] 92.9 fL Normal 81-99 [facility] Comment on above: Performed By: #### L 9200.0000 #### [facility] [address] [place], [address] Platelet mean volume (Bld) [Entitic vol] 9.9 fL Normal 6.2-12.0 [facility] Comment on above: Performed By: #### L 9200.0000 #### [facility] [address] [place], [address] Platelets (Bld) [#/Vol] 257 10*3/uL Normal 150-450 [facility] Comment on above: Performed By: #### L 9200.0000 #### [facility] [address] [place], [address] RBC (Bld) [#/Vol] 3.40 10*6/uL Low 4.2-5.4 [facility] Comment on above: Performed By: #### L 9200.0000 #### [facility] [address] [place], [address] RDW SD 47.2 fl High 35.1-43.9 [facility] Comment on above: Performed By: #### L 9200.0000 #### [facility] [address] [place], [address] WBC (Bld) [#/Vol] 4.3 10*3/uL Low 4.4-11.[address] [facility] Comment on above: Performed By: #### L 9200.0000 #### [facility] [address] [place], [address] Prothrombin Time w/INRon INR Coag (PPP) [Relative time] 2.5 {INR} Normal [facility] Comment on above: Performed By: #### L 9200.0000 #### [facility] [address] [place], [address] PT Coag (PPP) [Time] 27.6 s High 11.7-14.9 [facility] Comment on above: Performed By: #### L 9200.0000 #### [facility] [address] [place], [address] Basic Metabolic Profile (BMP )on 02-15-2025 BUN/CRE 18.4 RATIO Normal 10-20 [facility] Comment on above: Order Comment: 104.1 Performed By: #### L 9200.0000 #### [facility] [address] [place], [address] Calcium [Mass/Vol] 9.4 mg/dL Normal 7.6-11.[address] [facility] Comment on above: Order Comment: 104.1 Performed By: #### L 9200.0000 #### [facility] [address] [place], [address] Chloride [Moles/Vol] 107 mmol/L Normal 98-108 [facility] Comment on above: Order Comment: 104.1 Performed By: #### L 9200.0000 #### [facility] [address] [place], [address] CO2 [Moles/Vol] 16.1 mmol/L Low 21.0-32.0 [facility] Comment on above: Order Comment: 104.1 Performed By: #### L 9200.0000 #### [facility] [address] [place], [address] Creatinine [Mass/Vol] 1.12 mg/dL Normal 0.70-1.20 [facility] Comment on above: Order Comment: 104.1 Performed By: #### L 9200.0000 #### [facility] [address] [place], [address] GAP 11 Normal 5-15 [facility] Comment on above: Order Comment: 104.1 Performed By: #### L 9200.0000 #### [facility] [address] [place], [address] GFR/1.73 sq M.predicted among non-blacks MDRD (S/P/Bld) [Vol rate/Area] 48 mL/min/{1.73_m2} Low >60 [facility] Comment on above: Order Comment: 104.1 Result Comment: mL/m in/1.73m2 CKD-EPI Creatinine Equation (2020) Performed By: #### L 9200.0000 #### [facility] [address] [place], [address] Glucose [Mass/Vol] 90 mg/dL Normal 70-[address] [facility] Comment on above: Order Comment: 104.1 Performed By: #### L 9200.0000 #### [facility] [address] [place], [address] Potassium [Moles/Vol] 6.1 mmol/L Invalid Interpretation Code 3.3-5.1 [facility] Comment on above: Order Comment: 104.1 Result Comment: Crit ical result called 02/15/2025-09:30 by Cirilo Bird to Shannen Christianson. Hemolysis present, Results??could be affected. ?? Critical Result(s) Called at: by:??Results read back by same. Performed By: #### L 9200.0000 #### [facility] [address] [place], [address] Sodium [Moles/Vol] 134 mmol/L Normal 133-[address] [facility] Comment on above: Order Comment: 104.1 Performed By: #### L 9200.0000 #### [facility] [address] [place], [address] Urea nitrogen [Mass/Vol] 21 mg/dL High 4-19 [facility] Comment on above: Order Comment: 104.1 Performed By: #### L 9200.0000 #### [facility] [address] [place], [address] CBC-Complete Blood Cnt No Di ffon 02-15-2025 Erythrocyte distribution width (RBC) [Ratio] 13.8 % Normal 11.6-14.6 [facility] Comment on above: Order Comment: 104.1 Performed By: #### L 500.2500, L100.0500 #### [facility] [address] [place], [address] Hematocrit (Bld) [Volume fraction] 34.2 % Low 37-47 [facility] Comment on above: Order Comment: 104.1 Performed By: #### L 500.2500, L100.0500 #### [facility] [address] [place], [address] Hemoglobin (Bld) [Mass/Vol] 10.8 g/dL Low 12.0-15.0 [facility] Comment on above: Order Comment: 104.1 Performed By: #### L 500.2500, L100.0500 #### [facility] [address] [place], [address] MCH (RBC) [Entitic mass] 30.4 pg Normal 27.0-32.0 [facility] Comment on above: Order Comment: 104.1 Performed By: #### L 500.2500, L100.0500 #### [facility] [address] [place], [address] MCHC (RBC) [Mass/Vol] 31.6 g/dL Low 32-36 [facility] Comment on above: Order Comment: 104.1 Performed By: #### L 500.2500, L100.0500 #### [facility] [address] [place], [address] MCV (RBC) [Entitic vol] 96.3 fL Normal 81-99 [facility] Comment on above: Order Comment: 104.1 Performed By: #### L 500.2500, L100.0500 #### [facility] [address] [place], [address] Platelet mean volume (Bld) [Entitic vol] 10.4 fL Normal 6.2-12.0 [facility] Comment on above: Order Comment: 104.1 Performed By: #### L 500.2500, L100.0500 #### [facility] [address] [place], [address] Platelets (Bld) [#/Vol] 239 10*3/uL Normal 150-450 [facility] Comment on above: Order Comment: 104.1 Performed By: #### L 500.2500, L100.0500 #### [facility] [address] [place], [address] RBC (Bld) [#/Vol] 3.55 10*6/uL Low 4.2-5.4 [facility] Comment on above: Order Comment: 104.1 Performed By: #### L 500.2500, L100.0500 #### [facility] [address] [place], [address] RDW SD 49.1 fl High 35.1-43.9 [facility] Comment on above: Order Comment: 104.1 Performed By: #### L 500.2500, L100.0500 #### [facility] [address] [place], [address] WBC (Bld) [#/Vol] 4.3 10*3/uL Low 4.4-11.[address] [facility] Comment on above: Order Comment: 104.1 Performed By: #### L 500.2500, L100.0500 #### [facility] [address] [place], [address] Prothrombin Time w/INRon INR Normal [facility] Comment on above: Order Comment: 104-1 Result Comment: FING ERSTICK Performed By: #### L 9200.0000 #### [facility] [address] [place], [address] PROTIME Normal 11.7-14.9 [facility] Comment on above: Order Comment: 104-1 Result Comment: FING ERSTICK Performed By: #### L 9200.0000 #### [facility] [address] [place], [address] Protime w/INR Fingerstickon 02-11-2025 INR Coag (PPP) [Relative time] 2.5 {INR} Normal [facility] Comment on above: Result Comment: Crit ical Value > 4.0 Performed By: #### L 9200.0000 #### [facility] [address] [place], [address] Protime Coagsen 26.4 SEC High 11.7-14.9 [facility] Comment on above: Performed By: #### L 9200.0000 #### [facility] [address] [place], [address] Protime w/INR Fingerstickon 02-07-2025 INR Coag (PPP) [Relative time] 2.2 {INR} Normal [facility] Comment on above: Result Comment: Crit ical Value > 4.0 Performed By: #### L 9200.0000 #### [facility] [address] [place], [address] Protime [place] 23.6 SEC High 11.7-14.9 [facility] Comment on above: Performed By: #### L 9200.0000 #### [facility] [address] [place], [address] Protime w/INR Fingerstickon 02-04-2025 INR Coag (PPP) [Relative time] 3.6 {INR} Normal [facility] Comment on above: Result Comment: Crit ical Value > 4.0 Performed By: #### L 9200.0000 #### [facility] [address] [place], [address] Protime [place] 36.4 SEC High 11.7-14.9 [facility] Comment on above: Performed By: #### L 9200.0000 #### [facility] [address] [place], [address] Prothrombin Time w/INRon INR Coag (PPP) [Relative time] 3.3 {INR} Normal [facility] Comment on above: Order Comment: 104-1 Performed By: #### L 300.3900 #### [facility] [address] [place], [address] PT Coag (PPP) [Time] 34.2 s High 11.7-14.9 [facility] Comment on above: Order Comment: 104-1 Performed By: #### L 300.3900 #### [facility] [address] [place], [address] Protime w/INR Fingerstickon 01-28-2025 INR Coag (PPP) [Relative time] 2.8 {INR} Normal [facility] Comment on above: Result Comment: Crit ical Value > 4.0 Performed By: #### L 9200.0000 #### [facility] [address] [place], [address] Protime [place]agsen 29.1 SEC High 11.7-14.9 [facility] Comment on above: Performed By: #### L 9200.0000 #### [facility] [address] [place], [address] Protime w/INR Fingerstickon 01-25-2025 INR Coag (PPP) [Relative time] 3.4 {INR} Normal [facility] Comment on above: Result Comment: Crit ical Value > 4.0 Performed By: #### L 9200.0000 #### [facility] [address] [place], [address] Protime Coagsen 34.5 SEC High 11.7-14.9 [facility] Comment on above: Performed By: #### L 9200.0000 #### [facility] [address] [place], [address] Prothrombin Time w/INRon INR Coag (PPP) [Relative time] 2.8 {INR} Normal [facility] Comment on above: Order Comment: 104- Performed By: #### L 300.3900 #### [facility] [address] [place], [address] PT Coag (PPP) [Time] 30.5 s High 11.7-14.9 [facility] Comment on above: Order Comment: 104-1 Performed By: #### L 300.3900 #### [facility] [address] [place], [address] Prothrombin Time w/INRon INR Coag (PPP) [Relative time] 2.5 {INR} Normal [facility] Comment on above: Order Comment: 104.1 Performed By: #### L 9200.0000 #### [facility] [address] [place], [address] PT Coag (PPP) [Time] 27.1 s High 11.7-14.9 [facility] Comment on above: Order Comment: 104.1 Performed By: #### L 9200.0000 #### [facility] [address] [place], [address] Prothrombin Time w/INRon INR Coag (PPP) [Relative time] 2.4 {INR} Normal [facility] Comment on above: Order Comment: DID F INGERSTICK TWICE, BOTH TIMES GOT A 'NO CLOT DETECTED'MESSAGE, SO VA A VENOUS SAMPLE. SPOKE WITH NURSE RIVKA Performed By: #### L 9200.0000 #### [facility] [address] [place], [address] PT Coag (PPP) [Time] 26.9 s High 11.7-14.9 [facility] Comment on above: Order Comment: DID F INGERSTICK TWICE, BOTH TIMES GOT A 'NO CLOT DETECTED'MESSAGE, SO VA A VENOUS SAMPLE. SPOKE WITH NURSE RIVKA Performed By: #### L 9200.0000 #### [facility] [address] [place], [address] Protime w/INR Fingerstickon 01-17-2025 INR Coag (PPP) [Relative time] 1.9 {INR} Normal [facility] Comment on above: Result Comment: Crit ical Value > 4.0 Performed By: #### L 9200.0000 #### [facility] [address] [place], [address] Protime Coagsen 20.8 SEC High 11.7-14.9 [facility] Comment on above: Performed By: #### L 9200.0000 #### [facility] [address] [place], [address] Protime w/INR Fingerstickon 01-16-2025 INR Coag (PPP) [Relative time] 1.5 {INR} Normal [facility] Comment on above: Result Comment: Crit ical Value > 4.0 Performed By: #### L 9200.0000 #### [facility] [address] [place], [address] Protime [place]agsen 17.2 SEC High 11.7-14.9 [facility] Comment on above: Performed By: #### L 9200.0000 #### [facility] [address] [place], [address] Prothrombin Time w/INRon INR Coag (PPP) [Relative time] 1.2 {INR} Normal [facility] Comment on above: Performed By: #### L 9200.0000 #### [facility] [address] [place], [address] PT Coag (PPP) [Time] 15.4 s High 11.7-14.9 [facility] Comment on above: Performed By: #### L 9200.0000 #### [facility] [address] [place], [address] 36on 01-08-2025 [address] [facility] Basic Metabolic Profile (BMP )on 01-07-2025 BUN/CRE 17.7 RATIO Normal 10-20 [facility] Comment on above: Order Comment: 104.1 Performed By: #### L 9200.0000 #### [facility] [address] [place], [address] Calcium [Mass/Vol] 9.1 mg/dL Normal 7.6-11.[address] [facility] Comment on above: Order Comment: 104.1 Performed By: #### L 9200.0000 #### [facility] [address] [place], [address] Chloride [Moles/Vol] 109 mmol/L High 98-108 [facility] Comment on above: Order Comment: 104.1 Performed By: #### L 9200.0000 #### [facility] [address] [place], [address] CO2 [Moles/Vol] 19.7 mmol/L Low 21.0-32.0 [facility] Comment on above: Order Comment: 104.1 Performed By: #### L 9200.0000 #### [facility] [address] [place], [address] Creatinine [Mass/Vol] 1.15 mg/dL Normal 0.70-1.20 [facility] Comment on above: Order Comment: 104.1 Performed By: #### L 9200.0000 #### [facility] [address] [place], [address] GAP 10 Normal 5-15 [facility] Comment on above: Order Comment: 104.1 Performed By: #### L 9200.0000 #### [facility] [address] [place], [address] GFR/1.73 sq M.predicted among non-blacks MDRD (S/P/Bld) [Vol rate/Area] 47 mL/min/{1.73_m2} Low >60 [facility] Comment on above: Order Comment: 104.1 Result Comment: mL/m in/1.73m2 CKD-EPI Creatinine Equation (2020) Performed By: #### L 9200.0000 #### [facility] [address] [place], [address] Glucose [Mass/Vol] 87 mg/dL Normal 70-[address] [facility] Comment on above: Order Comment: 104.1 Performed By: #### L 9200.0000 #### [facility] [address] [place], [address] Potassium [Moles/Vol] 5.0 mmol/L Normal 3.3-5.1 [facility] Comment on above: Order Comment: 104.1 Performed By: #### L 9200.0000 #### [facility] [address] [place], [address] Sodium [Moles/Vol] 138 mmol/L Normal 133-[address] [facility] Comment on above: Order Comment: 104.1 Performed By: #### L 9200.0000 #### [facility] [address] [place], [address] Urea nitrogen [Mass/Vol] 20 mg/dL High 4-19 [facility] Comment on above: Order Comment: 104.1 Performed By: #### L 9200.0000 #### [facility] [address] [place], [address] CBC-Complete Blood Cnt No Di ffon 01-07-2025 Erythrocyte distribution width (RBC) [Ratio] 16.5 % High 11.6-14.6 [facility] Comment on above: Order Comment: 104.1 Performed By: #### L 9200.0000 #### [facility] [address] [place], [address] Hematocrit (Bld) [Volume fraction] 30.4 % Low 37-47 [facility] Comment on above: Order Comment: 104.1 Performed By: #### L 9200.0000 #### [facility] [address] [place], [address] Hemoglobin (Bld) [Mass/Vol] 9.8 g/dL Low 12.0-15.0 [facility] Comment on above: Order Comment: 104.1 Performed By: #### L 9200.0000 #### [facility] [address] [place], [address] MCH (RBC) [Entitic mass] 29.9 pg Normal 27.0-32.0 [facility] Comment on above: Order Comment: 104.1 Performed By: #### L 9200.0000 #### [facility] [address] [place], [address] MCHC (RBC) [Mass/Vol] 32.2 g/dL Normal 32-36 [facility] Comment on above: Order Comment: 104.1 Performed By: #### L 9200.0000 #### [facility] [address] [place], [address] MCV (RBC) [Entitic vol] 92.7 fL Normal 81-99 [facility] Comment on above: Order Comment: 104.1 Performed By: #### L 9200.0000 #### [facility] [address] [place], [address] Platelet mean volume (Bld) [Entitic vol] 10.0 fL Normal 6.2-12.0 [facility] Comment on above: Order Comment: 104.1 Performed By: #### L 9200.0000 #### [facility] [address] [place], [address] Platelets (Bld) [#/Vol] 254 10*3/uL Normal 150-450 [facility] Comment on above: Order Comment: 104.1 Performed By: #### L 9200.0000 #### [facility] [address] [place], [address] RBC (Bld) [#/Vol] 3.28 10*6/uL Low 4.2-5.4 [facility] Comment on above: Order Comment: 104.1 Performed By: #### L 9200.0000 #### [facility] [address] [place], [address] RDW SD 55.9 fl High 35.1-43.9 [facility] Comment on above: Order Comment: 104.1 Performed By: #### L 9200.0000 #### [facility] [address] [place], [address] WBC (Bld) [#/Vol] 4.5 10*3/uL Normal 4.4-11.[address] [facility] Comment on above: Order Comment: 104.1 Performed By: #### L 9200.0000 #### [facility] [address] [place], [address] 36on 01-04-2025 36 Normal [facility]S [address] [facility] Progress Noteon 12-24-2024 Progress Note Normal [facility] No Panel Informationon 12-13 Left MICHELLE 0.71 [facility] Left arm BP 121 mmHg [facility] Left Dist Outflow EDV 6.5 cm/s [facility] Dist Outflow PSV 51.5 cm/s [facility] Left dorsalis pedis BP 67 mmHg [facility] Left Graft 1 Proximal Popliteal Stent [facility] Left Inflow Artery EDV 8.5 cm/s [facility] Left Inflow Artery PSV 46.5 cm/s [facility] Left Mid Outflow EDV 6.5 cm/s [facility] Left Mid Outflow PSV 58.1 cm/s [facility] Left Outflow Vessel EDV 9.8 cm/s [facility] Left Outflow Vessel PSV 89.9 cm/s S [facility] Left posterior tibial 94 mmHg [facility] Left Prox Outflow EDV 6.5 cm/s [facility] Left Prox Outflow PSV 51.5 cm/s [facility] Right MICHELLE 0.96 [facility] Right arm BP 133 mmHg [facility] Right YARITZA dist PSV 53.6 cm/s [facility] Right PARACHUTE PACKER dist PSV 144.6 cm/s [facility] Right PARACHUTE PACKER mid AP diameter 0.92 cm [facility] Right PARACHUTE PACKER mid TR diameter 0.89 cm [facility] Right PARACHUTE PACKER prox PSV 133.7 cm/s [facility] Right Dist Outflow EDV 0 cm/s [facility] Right Dist Outflow PSV 45.3 cm/s [facility] Right dorsalis pedis BP 107 mmHg [facility] Right EIA dist PSV 144.6 cm/s [facility] Right Graft 1 Distal SFA Stent [facility] Right Inflow Artery EDV 4.6 cm/s S [facility] Right Inflow Artery PSV 100.7 cm/s S [facility] Right Mid Outflow EDV 2.3 cm/s [facility] Right Mid Outflow PSV 66.2 cm/s [facility] Right Outflow Vessel EDV 2.3 cm/s [facility] Right Outflow Vessel PSV 56.4 cm/s [facility] Right PFA AP diameter 0.59 cm [facility] Right PFA TR diameter 0.73 cm [facility] Right Pop A dist PSV 157.6 cm/s [facility] Right Pop A mid PSV 89.9 cm/s [facility] Right popliteal artery mid AP diameter 0.52 cm [facility] Right popliteal artery mid TR diameter 0.6 cm [facility] Right posterior tibial 128 mmHg [facility] Right Prox Outflow EDV 0 cm/s [facility] Right Prox Outflow PSV 68.6 cm/s [facility] Right [employer] dist PSV 48.1 cm/s [facility] Right SFA dist PSV 100.7 cm/s [facility] Right SFA distal AP diameter 0.71 [...] CPACS Progress Noteon 12-05-2024 Progress Note Normal [place] [facility] 11-23-[address]24 [address] [facility] [address] [facility] [address] [facility] [id number] 11-22-2024 [id number] [facility] Anesthesia Noteon 11-22-2024 Anesthesia Note Normal [facility] No Panel Informationon 11-22 There is no interpretation needed for this exam. IMAGING Nursing Noteon 11-22-2024 Nursing Note Patient arrived on unit. Name and date verified. Attached to monitors. Vital signs stable. Normal [facility] Op Noteon 11-22-2024 Op Note Normal [facility] Progress Noteon 11-22-2024 Progress Note POA called to bedsid e and discharge instructions reviewed. Groin site remains intact and LE distal pulses unchanged via assessment with doppler. Transportation called for picker packer Normal [facility] Progress Note POA given updated vi a phone call. Made aware of patient's orders to lay flat until 1325. Daughter in law stated that she will call care facility later to make arrangements for transportation back. Normal [facility] Anesthesia Noteon 11-21-2024 Anesthesia Note Normal [facility] Basic Metabolic Profile (BMP )on 11-15-2024 BUN/CRE 18.3 RATIO Normal - [facility] Comment on above: Order Comment: 104-1 Performed By: #### L 9200.0000 #### [facility] [place], [address] Calcium [Mass/Vol] 9.0 mg/dL Normal 7.6-11.[address] [facility] Comment on above: Order Comment: 104-1 Performed By: #### L 9200.0000 #### [facility] [address] [place], [address] Chloride [Moles/Vol] 108 mmol/L Normal 98-108 [facility] Comment on above: Order Comment: 104-1 Performed By: #### L 9200.0000 #### [facility] [address] [place], [address] CO2 [Moles/Vol] 22.1 mmol/L Normal 21.0-32.0 [facility] Comment on above: Order Comment: 104-1 Performed By: #### L 9200.0000 #### [facility] [address] [place], [address] Creatinine [Mass/Vol] 1.03 mg/dL Normal 0.70-1.20 [facility] Comment on above: Order Comment: 104-1 Performed By: #### L 9200.0000 #### [facility] [address] [place], [address] GAP 9 Normal 5-15 [facility] Comment on above: Order Comment: 104-1 Performed By: #### L 9200.0000 #### [facility] [address] [place], [address] GFR/1.73 sq M.predicted among non-blacks MDRD (S/P/Bld) [Vol rate/Area] 53 mL/min/{1.73_m2} Low >60 [facility] Comment on above: Order Comment: 104-1 Result Comment: mL/m in/1.73m2 CKD-EPI Creatinine Equation (2020) Performed By: #### L 9200.0000 #### [facility] [address] [place], [address] Glucose [Mass/Vol] 91 mg/dL Normal 70-[address] [facility] Comment on above: Order Comment: 104-1 Performed By: #### L 9200.0000 #### [facility] [address] [place], [address] Potassium [Moles/Vol] 4.8 mmol/L Normal 3.3-5.1 [facility] Comment on above: Order Comment: 104-1 Performed By: #### L 9200.0000 #### [facility] [address] [place], [address] Sodium [Moles/Vol] 138 mmol/L Normal 133-[address] [facility] Comment on above: Order Comment: 104-1 Performed By: #### L 9200.0000 #### [facility] [address] [place], [address] Urea nitrogen [Mass/Vol] 19 mg/dL Normal 4-19 [facility] Comment on above: Order Comment: 104-1 Performed By: #### L 9200.0000 #### [facility] [address] [place], [address] CBC W/Diff, Automatedon 05-0 1-5 Absolute Lymph 1.77 X10 3/uL Normal 0.83-4.51 [facility] Comment on above: Order Comment: 104-1 Performed By: #### L 9200.0000 #### [facility] [address] [place], [address] Absolute Neut 3.2 X10 3/uL Normal 2.0-7.7 [facility] Comment on above: Order Comment: 104-1 Performed By: #### L 9200.0000 #### [facility] [address] [place], [address] Basophils/100 WBC (Bld) 0.7 % Normal 0-1 [facility] Comment on above: Order Comment: 104-1 Performed By: #### L 9200.0000 #### [facility] [address] [place], [address] Eosinophils/100 WBC (Bld) 2.9 % Normal 0-5 [facility] Comment on above: Order Comment: 104-1 Performed By: #### L 9200.0000 #### [facility] [address] [place], [address] Erythrocyte distribution width (RBC) [Ratio] 18.8 % High 11.6-14.6 [facility] Comment on above: Order Comment: 104-1 Performed By: #### L 9200.0000 #### [facility] [address] [place], [address] Hematocrit (Bld) [Volume fraction] 30.9 % Low 37-47 [facility] Comment on above: Order Comment: 104-1 Performed By: #### L 9200.0000 #### [facility] [address] [place], [address] Hemoglobin (Bld) [Mass/Vol] 9.8 g/dL Low 12.0-15.0 [facility] Comment on above: Order Comment: 104-1 Performed By: #### L 9200.0000 #### [facility] [address] [place], [address] IG% 0.200 Normal 0.0-0.9 [facility] Comment on above: Order Comment: 104-1 Result Comment: IG% - Immature Granulocytes (promyelocytes, myelocytes and metamyelocytes) > 1% indicates that a LEFT SHIFT is Present. Performed By: #### L 9200.0000 #### [facility] [address] [place], [address] Lymphocytes/100 WBC (Bld) 30.3 % Normal 19-41 [facility] Comment on above: Order Comment: 104-1 Performed By: #### L 9200.0000 #### [facility] [address] [place], [address] MCH (RBC) [Entitic mass] 28.4 pg Normal 27.0-32.0 [facility] Comment on above: Order Comment: 104-1 Performed By: #### L 9200.0000 #### [facility] [address] [place], [address] MCHC (RBC) [Mass/Vol] 31.7 g/dL Low 32-36 [facility] Comment on above: Order Comment: 104-1 Performed By: #### L 9200.0000 #### [facility] [address] [place], [address] MCV (RBC) [Entitic vol] 89.6 fL Normal 81-99 [facility] Comment on above: Order Comment: 104-1 Performed By: #### L 9200.0000 #### [facility] [address] [place], [address] Monocytes/100 WBC (Bld) 11.3 % High 0-10 [facility] Comment on above: Order Comment: 104-1 Performed By: #### L 9200.0000 #### [facility] [address] [place], [address] Neutrophils/100 WBC (Bld) 54.6 % Normal 47-70 [facility] Comment on above: Order Comment: 104-1 Performed By: #### L 9200.0000 #### [facility] [address] [place], [address] Nucleated RBC (Bld) [#/Vol] 0 10*3/uL Normal 0-5 [facility] Comment on above: Order Comment: 104-1 Performed By: #### L 9200.0000 #### [facility] [address] [place], [address] Platelet mean volume (Bld) [Entitic vol] 10.2 fL Normal 6.2-12.0 [facility] Comment on above: Order Comment: 104-1 Performed By: #### L 9200.0000 #### [facility] [address] [place], [address] Platelets (Bld) [#/Vol] 303 10*3/uL Normal 150-450 [facility] Comment on above: Order Comment: 104-1 Performed By: #### L 9200.0000 #### [facility] [address] [place], [address] RBC (Bld) [#/Vol] 3.45 10*6/uL Low 4.2-5.4 [facility] Comment on above: Order Comment: 104-1 Performed By: #### L 9200.0000 #### [facility] [address] [place], [address] RDW SD 61.8 fl High 35.1-43.9 [facility] Comment on above: Order Comment: 104-1 Performed By: #### L 9200.0000 #### [facility] [address] [place], [address] WBC (Bld) [#/Vol] 5.8 10*3/uL Normal 4.4-11.[address] [facility] Comment on above: Order Comment: 104-1 Performed By: #### L 9200.0000 #### [facility] [address] [place], [address] 36on 11-14-2024 36 Normal [facility] 36on 11-08-2024 36 Fidel called to state that she spoke with Mel and she would like to proceed with angio. Normal [facility] Progress Noteon 11-05-2024 Progress Note Normal [facility] Anion gap in Serum or Plasma Ordered By: Megan Montoya on 10-08-2024 Anion gap [Moles/Vol] 12 mmol/L 5-15 [facility] BUN/creatinine ratioOrdered By: Megan Montoya on 10-08-2024 Urea nitrogen/Creatinine [Mass ratio] 16.5 mg/mg 10-20 [facility] Basic Metabolic Profile (BMP )on 10-08-2024 BUN/CRE 16.5 RATIO Normal - [facility] Comment on above: Order Comment: 104.1 Performed By: #### L 500.2500, L100.0500 #### [facility] [address] [place], [address] Calcium [Mass/Vol] 9.0 mg/dL Normal 7.6-11.[address] [facility] Comment on above: Order Comment: 104.1 Performed By: #### L 500.2500, L100.0500 #### [facility] [address] [place], [address] Chloride [Moles/Vol] 106 mmol/L Normal 98-108 [facility] Comment on above: Order Comment: 104.1 Performed By: #### L 500.2500, L100.0500 #### [facility] [address] [place], [address] CO2 [Moles/Vol] 20.0 mmol/L Low 21.0-32.0 [facility] Comment on above: Order Comment: 104.1 Performed By: #### L 500.2500, L100.0500 #### [facility] [address] [place], [address] Creatinine [Mass/Vol] 1.05 mg/dL Normal 0.70-1.20 [facility] Comment on above: Order Comment: 104.1 Performed By: #### L 500.2500, L100.0500 #### [facility] [address] [place], [address] GAP 12 Normal 5-15 [facility] Comment on above: Order Comment: 104.1 Performed By: #### L 500.2500, L100.0500 #### [facility] [address] [place], [address] GFR/1.73 sq M.predicted among non-blacks MDRD (S/P/Bld) [Vol rate/Area] 52 mL/min/{1.73_m2} Low >60 [facility] Comment on above: Order Comment: 104.1 Result Comment: mL/m in/1.73m2 CKD-EPI Creatinine Equation (2020) Performed By: #### L 500.2500, L100.0500 #### [facility] [address] [place], [address] Glucose [Mass/Vol] 98 mg/dL Normal 70-[address] [facility] Comment on above: Order Comment: 104.1 Performed By: #### L 500.2500, L100.0500 #### [facility] [address] [place], [address] Potassium [Moles/Vol] 4.3 mmol/L Normal 3.3-5.1 [facility] Comment on above: Order Comment: 104.1 Result Comment: Hemo lysis present, Results??could be affected. ?? Performed By: #### L 500.2500, L100.0500 #### [facility] [address] [place], [address] Sodium [Moles/Vol] 137 mmol/L Normal 133-[address] [facility] Comment on above: Order Comment: 104.1 Performed By: #### L 500.2500, L100.0500 #### [facility] [address] [place], [address] Urea nitrogen [Mass/Vol] 17 mg/dL Normal 4-19 [facility] Comment on above: Order Comment: 104.1 Performed By: #### L 500.2500, L100.0500 #### [facility] [address] [place], [address] CBC-Complete Blood Cnt No Di ffon 10-08-2024 Erythrocyte distribution width (RBC) [Ratio] 17.5 % High 11.6-14.6 [facility] Comment on above: Order Comment: 104.1 Performed By: #### L 500.2500, L100.0500 #### [facility] [address] [place], [address] Hematocrit (Bld) [Volume fraction] 30.4 % Low 37-47 [facility] Comment on above: Order Comment: 104.1 Performed By: #### L 500.2500, L100.0500 #### [facility] [address] [place], [address] Hemoglobin (Bld) [Mass/Vol] 9.6 g/dL Low 12.0-15.0 [facility] Comment on above: Order Comment: 104.1 Performed By: #### L 500.2500, L100.0500 #### [facility] [address] [place], [address] MCH (RBC) [Entitic mass] 27.4 pg Normal 27.0-32.0 [facility] Comment on above: Order Comment: 104.1 Performed By: #### L 500.2500, L100.0500 #### [facility] [address] [place], [address] MCHC (RBC) [Mass/Vol] 31.6 g/dL Low 32-36 [facility] Comment on above: Order Comment: 104.1 Performed By: #### L 500.2500, L100.0500 #### [facility] [address] [place], [address] MCV (RBC) [Entitic vol] 86.9 fL Normal 81-99 [facility] Comment on above: Order Comment: 104.1 Performed By: #### L 500.2500, L100.0500 #### [facility] [address] [place], [address] Platelet mean volume (Bld) [Entitic vol] 10.3 fL Normal 6.2-12.0 [facility] Comment on above: Order Comment: 104.1 Performed By: #### L 500.2500, L100.0500 #### [facility] [address] [place], [address] Platelets (Bld) [#/Vol] 408 10*3/uL Normal 150-450 [facility] Comment on above: Order Comment: 104.1 Performed By: #### L 500.2500, L100.0500 #### [facility] [address] [place], [address] RBC (Bld) [#/Vol] 3.50 10*6/uL Low 4.2-5.4 [facility] Comment on above: Order Comment: 104.1 Performed By: #### L 500.2500, L100.0500 #### [facility] [address] [place], [address] RDW SD 56.2 fl High 35.1-43.9 [facility] Comment on above: Order Comment: 104.1 Performed By: #### L 500.2500, L100.0500 #### [facility] [address] [place], [address] WBC (Bld) [#/Vol] 6.4 10*3/uL Normal 4.4-11.[address] [facility] Comment on above: Order Comment: 104.1 Performed By: #### L 500.2500, L100.0500 #### [facility] [address] [place], [address] Carbon dioxide, total [Moles /volume] in Central venous bloodOrdered By: eMgan Montoya on 10-08-2024 CO2 [Moles/Vol] 20.0 mmol/L Low 21.0-32.0 [facility] Chloride assayOrdered By: Johnathan Guzman on 10-08-2024 Chloride [Moles/Vol] 106 mmol/L 98-108 [facility] Erythrocyte distribution wid th ratioOrdered By: Megan Montoya on 10-08-2024 Erythrocyte distribution width (RBC) [Ratio] 17.5 % High 11.6-14.6 [facility] Erythrocyte distribution wid th standard deviationOrdered By: Megan Montoya on 10-08-2024 Erythrocyte distribution width (RBC) [Entitic vol] 56.2 fL High 35.1-43.9 [facility] GFR/1.73 sq M.predicted gricelda g non-blacks MDRD (S/P/Bld) [Vol rate/Area]Ordered By: Megan Montoya on 10-08-2024 Estimated GFR (MDRD) Non-Af Amer 52 Low >60 [facility] Comment on above: mL/min/1.73m2 CKD-EP I Creatinine Equation (2020) Hematocrit Auto (Bld) [Volum e fraction]Ordered By: Megan Montoya on 10-08-2024 Hematocrit (Bld) [Volume fraction] 30.4 % Low 37-47 [facility] Hemoglobin measurementOrdere d By: Megan Montoya on 10-08-2024 Hemoglobin (Bld) [Mass/Vol] 9.6 g/dL Low 12.0-15.0 [facility] MCV (mean corpuscular volume ) determinationOrdered By: Megan Montoya on 10-08-2024 MCV (RBC) [Entitic vol] 86.9 fL 81-99 [facility] Mean corpuscular hemoglobin (MCH) determinationOrdered By: Megan Montoya on 10-08-2024 MCH (RBC) [Entitic mass] 27.4 pg 27.0-32.0 [facility] Mean corpuscular hemoglobin concentration (MCHC) determinationOrdered By: Megan Montoya on 10-08-2024 MCHC (RBC) [Mass/Vol] 31.6 g/dL Low 32-36 [facility] Mean platelet volume determi nationOrdered By: Megan Montoya on 10-08-2024 Platelet mean volume (Bld) [Entitic vol] 10.3 fL 6.2-12.0 [facility] Platelet countOrdered By: Johnathan Guzman on 10-08-2024 Platelets (Bld) [#/Vol] 408 10*3/uL 150-450 [facility] Potassium (Unsp spec) [Mass/ Vol]Ordered By: Megan Montoya on 10-08-2024 Potassium [Moles/Vol] 4.3 mmol/L 3.3-5.1 [facility] Comment on above: Hemolysis present, R esults could be affected. RBC Auto (Bld) [#/Vol]Ordere d By: Megan Montoya on 10-08-2024 RBC (Bld) [#/Vol] 3.50 10*6/uL Low 4.2-5.4 [facility] Serum creatinine measurement (mass/volume)Ordered By: Megan Montoya on 10-08-2024 Creatinine [Mass/Vol] 1.05 mg/dL 0.70-1.20 [facility] Serum glucose measurement (m ass/volume)Ordered By: Megan Montoya on 10-08-2024 Glucose [Mass/Vol] 98 mg/dL 70-[address] [facility] Serum or plasma calcium reyna urement (mass/volume)Ordered By: Megan Montoya on 10-08-2024 Calcium [Mass/Vol] 9.0 mg/dL 7.6-11.[address] [facility] Serum or plasma urea nitroge n measurement (mass/volume)Ordered By: Megan Montoya on 10-08-2024 Urea nitrogen [Mass/Vol] 17 mg/dL 4-19 [facility] Sodium levelOrdered By: Juan C Montoya on 10-08-2024 Sodium [Moles/Vol] 137 mmol/L 133-[address] [facility] White blood cell (WBC) count Ordered By: Megan Montoya on 10-08-2024 WBC (Bld) [#/Vol] 6.4 10*3/uL 4.4-11.[address] [facility] BSCAN OD (RIGHT EYE)on 10-01 [facility] Radiology Study observation (narrative) [facility] BUN/creatinine ratioOrdered By: Megan Montoya on 09-17-2024 Urea nitrogen/Creatinine [Mass ratio] 15.7 mg/mg 10-20 [facility] Basic Metabolic Profile (BMP )on 09-17-2024 Anion gap [Moles/Vol] 10 mmol/L Normal 5-15 [facility] Comment on above: Order Comment: 104-1 Performed By: #### L 300.2400 #### [facility] [address] [place], [address] BUN/CRE 15.7 RATIO Normal 10-20 [facility] Comment on above: Order Comment: 104-1 Performed By: #### L 300.3900 #### [facility] [address] [place], [address] Calcium [Mass/Vol] 9.0 mg/dL Normal 7.6-11.[address] [facility] Comment on above: Order Comment: 104-1 Performed By: #### L 300.3900 #### [facility] [address] [place], [address] Chloride [Moles/Vol] 108 mmol/L Normal 96-108 [facility] Comment on above: Order Comment: 104-1 Performed By: #### L 300.3900 #### [facility] [address] [place], [address] CO2 [Moles/Vol] 21.6 mmol/L Low 22.0-29.0 [facility] Comment on above: Order Comment: 104-1 Performed By: #### L 300.3900 #### [facility] [address] [place], [address] Creatinine [Mass/Vol] 1.03 mg/dL Normal 0.70-1.20 [facility] Comment on above: Order Comment: 104-1 Performed By: #### L 300.3900 #### [facility] [address] [place], [address] GFR/1.73 sq M.predicted among non-blacks MDRD (S/P/Bld) [Vol rate/Area] 54 mL/min/{1.73_m2} Low >60 [facility] Comment on above: Order Comment: 104-1 Result Comment: mL/m in/1.73m2 CKD-EPI Creatinine Equation (2020) Performed By: #### L 300.3900 #### [facility] [address] [place], [address] Glucose [Mass/Vol] 90 mg/dL Normal 70-[address] [facility] Comment on above: Order Comment: 104-1 Performed By: #### L 300.3900 #### [facility] [address] [place], [address] Potassium [Moles/Vol] 4.5 mmol/L Normal 3.3-5.1 [facility] Comment on above: Order Comment: 104-1 Performed By: #### L 300.3900 #### [facility] [address] [place], [address] Sodium [Moles/Vol] 140 mmol/L Normal 133-[address] [facility] Comment on above: Order Comment: 104-1 Performed By: #### L 300.3900 #### [facility] [address] [place], [address] Urea nitrogen [Mass/Vol] 16 mg/dL Normal 4-19 [facility] Comment on above: Order Comment: 104-1 Performed By: #### L 300.3900 #### [facility] [address] [place], [address] Carbon dioxide measurementOr dered By: Megan Montoya on 09-17-2024 CO2 [Moles/Vol] 21.6 mmol/L Low 22.0-29.0 [facility] Chloride measurementOrdered By: Megan Montoya on 09-17-2024 Chloride [Moles/Vol] 108 mmol/L 96-108 [facility] GFR/1.73 sq M.predicted gricelda g non-blacks MDRD (S/P/Bld) [Vol rate/Area]Ordered By: Megan Montoya on 09-17-2024 Estimated GFR (MDRD) Non-Af Amer 54 Low >60 [facility] Comment on above: mL/min/1.73m2 CKD-EP I Creatinine Equation (2020) Serum creatinine measurement (mass/volume)Ordered By: Megan Montoya on 09-17-2024 Creatinine [Mass/Vol] 1.03 mg/dL 0.70-1.20 [facility] Serum glucose measurement (m ass/volume)Ordered By: Megan Montoya on 09-17-2024 Glucose [Mass/Vol] 90 mg/dL 70-[address] [facility] Serum or plasma anion gap de termination (moles/volume)Ordered By: Megan Montoya on 09-17-2024 Anion gap [Moles/Vol] 10 mmol/L 5-15 [facility] Serum or plasma calcium reyna urement (mass/volume)Ordered By: Megan Montoya on 09-17-2024 Calcium [Mass/Vol] 9.0 mg/dL 7.6-11.[address] [facility] Serum or plasma potassium me asurementOrdered By: Megan Montoya on 09-17-2024 Potassium [Moles/Vol] 4.5 mmol/L 3.3-5.1 [facility] Serum or plasma sodium measu rement (moles/volume)Ordered By: Megan Montoya on 09-17-2024 Sodium [Moles/Vol] 140 mmol/L 133-[address] [facility] Serum or plasma urea nitroge n measurement (mass/volume)Ordered By: Megan Montoya on 09-17-2024 Urea nitrogen [Mass/Vol] 16 mg/dL 4-19 [facility] Basic Metabolic Profile (BMP )on 09-10-2024 BUN/CRE 17.9 RATIO Normal 10-20 [facility] Comment on above: Order Comment: 104.1 Performed By: #### L 9200.0000 #### [facility] [address] [place], [place], [address] CA,Total 9.0 mg/dL Normal 8.5-10.1 [facility] Comment on above: Order Comment: 104.1 Performed By: #### L 9200.0000 #### [facility] [address] [place], [place], [address] Chloride [Moles/Vol] 108 mmol/L High 98-107 [facility] Comment on above: Order Comment: 104.1 Performed By: #### L 9200.0000 #### [facility] [address] [place], [address] CO2 [Moles/Vol] 24.0 mmol/L Normal 21.0-32.0 [facility] Comment on above: Order Comment: 104.1 Performed By: #### L 9200.0000 #### [facility] [address] [place], [address] Creatinine [Mass/Vol] 1.23 mg/dL High 0.55-1.02 [facility] Comment on above: Order Comment: 104.1 Result Comment: The validity of the calculated GFR GFRAA in patients over 70 years has not been determined. Clinical correlation is essential. Performed By: #### L 9200.0000 #### [facility] [address] [place], [address] EST GFR - AA 53 mL/min Low >60 [facility] Comment on above: Order Comment: 104.1 Result Comment: Afri can [place] GFR Calc Performed By: #### L 9200.0000 #### [facility] [address] [place], [address] GAP 5 Normal 5-15 [facility] Comment on above: Order Comment: 104.1 Performed By: #### L [id number] #### [facility] [address] [place], [address] GFR/1.73 sq M.predicted among non-blacks MDRD (S/P/Bld) [Vol rate/Area] 44 mL/min/{1.73_m2} Low >60 [facility] Comment on above: Order Comment: 104.1 Result Comment: Non- GFR Calc Performed By: #### L 9200.0000 #### [facility] [address] [place], [address] Glucose [Mass/Vol] 98 mg/dL Normal 74-[address] [facility] Comment on above: Order Comment: 104.1 Performed By: #### L [id number] #### [facility] [address] [place], [address] Potassium [Moles/Vol] 4.5 mmol/L Normal 3.5-5.1 [facility] Comment on above: Order Comment: 104.1 Performed By: #### L 9200.0000 #### [facility] [address] [place], [address] Sodium [Moles/Vol] 137 mmol/L Normal 136-[address] [facility] Comment on above: Order Comment: 104.1 Performed By: #### L [id number] #### [facility] [address] [place], [address] Urea nitrogen [Mass/Vol] 22 mg/dL High 7-18 [facility] Comment on above: Order Comment: 104.1 Performed By: #### L 9200.0000 #### [facility] [address] [place], [address] Blood urea nitrogen (BUN)/cr eatinine ratioOrdered By: Megan Montoya on 09-10-2024 Urea nitrogen/Creatinine [Mass ratio] 17.9 mg/mg 10-20 [facility] CBC-Complete Blood Cnt No Di ffon 09-10-2024 Erythrocyte distribution width (RBC) [Ratio] 17.8 % High 11.6-14.6 [facility] Comment on above: Order Comment: 104.1 Performed By: #### L [id number] #### [facility] [address] [place], [address] Hematocrit (Bld) [Volume fraction] 31.9 % Low 37-47 [facility] Comment on above: Order Comment: 104.1 Performed By: #### L [id number] #### [facility] [address] [place], [address] Hemoglobin (Bld) [Mass/Vol] 9.7 g/dL Low 12.0-15.0 [facility] Comment on above: Order Comment: 104.1 Performed By: #### L [id number] #### [facility] [address] [place], [address] MCH (RBC) [Entitic mass] 26.1 pg Low 27.0-32.0 [facility] Comment on above: Order Comment: 104.1 Performed By: #### L [id number] #### [facility] [address] [place], [address] MCHC (RBC) [Mass/Vol] 30.4 g/dL Low 32-36 [facility] Comment on above: Order Comment: 104.1 Performed By: #### L [id number] #### [facility] [address] [place], [address] MCV (RBC) [Entitic vol] 85.8 fL Normal 81-99 [facility] Comment on above: Order Comment: 104.1 Performed By: #### L [id number] #### [facility] [address] [place], [address] Platelet mean volume (Bld) [Entitic vol] 9.5 fL Normal 6.2-12.0 [facility] Comment on above: Order Comment: 104.1 Performed By: #### L [id number] #### [facility] [address] [place], [address] Platelets (Bld) [#/Vol] 485 10*3/uL High 150-450 [facility] Comment on above: Order Comment: 104.1 Performed By: #### L [id number] #### [facility] [address] [place], [address] RBC (Bld) [#/Vol] 3.72 10*6/uL Low 4.2-5.4 [facility] Comment on above: Order Comment: 104.1 Performed By: #### L [id number] #### [facility] [address] [place], [place], [id number] RDW SD 55.2 fl High 35.1-43.9 [facility] Comment on above: Order Comment: 104.1 Performed By: #### L [id number] #### [facility] [address] [place], [place], [address] WBC (Bld) [#/Vol] 7.7 10*3/uL Normal 4.4-11.[address] [facility] Comment on above: Order Comment: 104.1 Performed By: #### L [id number] #### [facility] [address] [place], [place], [address] Carbon dioxide measurementOr dered By: Megan Montoya on 09-10-2024 CO2 [Moles/Vol] 24.0 mmol/L 21.0-32.0 [facility] Chloride measurementOrdered By: Megan Montoya on 09-10-2024 Chloride [Moles/Vol] 108 mmol/L High 98-107 [facility] Erythrocyte distribution wid th ratioOrdered By: Megan Montoya on 09-10-2024 Erythrocyte distribution width (RBC) [Ratio] 17.8 % High 11.6-14.6 [facility] Erythrocyte distribution wid th standard deviationOrdered By: Megan Montoya on 09-10-2024 Erythrocyte distribution width (RBC) [Entitic vol] 55.2 fL High 35.1-43.9 [facility] Estimated glomerular filtrat ion rate (GFR) AmericanOrdered By: Megan Montoya on 09-10-2024 Estimated GFR (MDRD) Amer 53 mL/min Low >60 [facility] Comment on above: GFR Calc Glomerular filtration rate ( GFR) estimationOrdered By: Megan Montoya on 09-10-2024 Estimated GFR (MDRD) Non-Af Amer 44 mL/min Low >60 [facility] Comment on above: Non- GFR Calc Glucose measurementOrdered B y: Megan Montoya on 09-10-2024 Glucose [Mass/Vol] 98 mg/dL 74-[address] [facility] Hematocrit Auto (Bld) [Volum e fraction]Ordered By: Megan Montoya on 09-10-2024 Hematocrit (Bld) [Volume fraction] 31.9 % Low 37-47 [facility] Hemoglobin measurementOrdere d By: Megan Montoya on 09-10-2024 Hemoglobin (Bld) [Mass/Vol] 9.7 g/dL Low 12.0-15.0 [facility] MCV (mean corpuscular volume ) determinationOrdered By: Megan Montoya on 09-10-2024 MCV (RBC) [Entitic vol] 85.8 fL 81-99 [facility] Mean corpuscular hemoglobin (MCH) determinationOrdered By: Megan Montoya on 09-10-2024 MCH (RBC) [Entitic mass] 26.1 pg Low 27.0-32.0 [facility] Mean corpuscular hemoglobin concentration (MCHC) determinationOrdered By: Megan Montoya on 09-10-2024 MCHC (RBC) [Mass/Vol] 30.4 g/dL Low 32-36 [facility] Mean platelet volume determi nationOrdered By: Megan Montoya on 09-10-2024 Platelet mean volume (Bld) [Entitic vol] 9.5 fL 6.2-12.0 [facility] Platelet countOrdered By: Johnathan Guzman on 09-10-2024 Platelets (Bld) [#/Vol] 485 10*3/uL High 150-450 [facility] Potassium measurementOrdered By: Megan Montoya on 09-10-2024 Potassium [Moles/Vol] 4.5 mmol/L 3.5-5.1 [facility] RBC Auto (Bld) [#/Vol]Ordere d By: Megan Montoya on 09-10-2024 RBC (Bld) [#/Vol] 3.72 10*6/uL Low 4.2-5.4 [facility] Serum anion gap measurementO rdered By: Megan Montoya on 09-10-2024 Anion gap [Moles/Vol] 5 mmol/L 5-15 [facility] Serum or plasma calcium reyna urement (mass/volume)Ordered By: Megan Montoya on 09-10-2024 Calcium [Mass/Vol] 9.0 mg/dL 8.5-10.[address] [facility] Serum or plasma creatinine m easurement (mass/volume)Ordered By: Megan Montoya on 09-10-2024 Creatinine [Mass/Vol] 1.23 mg/dL High 0.55-1.02 [facility] Comment on above: The validity of the calculated GFR & GFRAA in patients over 70 years has not been determined. Clinical correlation is essential. Serum or plasma urea nitroge n measurement (mass/volume)Ordered By: Megan Montoya on 09-10-2024 Urea nitrogen [Mass/Vol] 22 mg/dL High 7-18 [facility] Sodium levelOrdered By: Juan C Montoya on 09-10-2024 Sodium [Moles/Vol] 137 mmol/L 136-[address] [facility] White blood cell (WBC) count Ordered By: Megan Montoya on 09-10-2024 WBC (Bld) [#/Vol] 7.7 10*3/uL 4.4-11.[address] [facility] Urine Cultureon 09-06-2024 [facility] UNKNOWN METHOD OF COLLECTION Proteus mirabilis Rosine Count 50,000-80,000 Klebsiella pneumoniae sp pneum Klebsiella [...] Cefepime Islt AGATA <=0.12 S cefTRIAXone Islt AAGTA <=0.25 S Ciprofloxacin Islt AGATA <=0.06 S B-Lactamase Extended Susc Islt NEG Gentamicin Islt AGATA <=1 S levoFLOXacin Islt AGATA <=0.12 S Meropenem Islt AGATA <=0.25 S Nitrofurantoin Islt AGATA 32 S Pip+Tazo Islt AGATA <=4 S TMP SMX Islt AGATA <=20 S Normal [facility] Comment on above: Performed By: #### L 9200.0000 #### [facility] [address] [place], [address] Urinalysis, Completeon 09-04 BACTERIA 4+ /hpf Normal None Seen [facility] Comment on above: Order Comment: UNKNO WN METHOD OF COLLECTIONCLEAN CATCH Performed By: #### L [id number] #### [facility] [address] [place], [address] EPI,SQUAMOUS 10-25 SEEN Normal 5-10 [facility] Comment on above: Order Comment: UNKNO WN METHOD OF COLLECTIONCLEAN CATCH Performed By: #### L [id number] #### [facility] [address] [place], [address] Mucus Ql (Urine sed) 1+ /hpf Normal [facility] Comment on above: Order Comment: UNKNO WN METHOD OF COLLECTIONCLEAN CATCH Performed By: #### L [id number] #### [facility] [address] [place], [address] RBC 5-10 SEEN Normal 0-5 [facility] Comment on above: Order Comment: UNKNO WN METHOD OF COLLECTIONCLEAN CATCH Performed By: #### L [id number] #### [facility] [address] [place], [address] WBC 50-100 SEEN Normal 0-5 [facility] Comment on above: Order Comment: UNKNO WN METHOD OF COLLECTIONCLEAN CATCH Performed By: #### L [id number] #### [facility] [address] [place], [address] Basic Metabolic Profile (BMP )on 09-03-2024 BUN/CRE 20.7 RATIO High 10-20 [facility] Comment on above: Order Comment: 104-1 Performed By: #### L [id number] #### [facility] [address] [place], [address] CA,Total 9.4 mg/dL Normal 8.5-10.1 [facility] Comment on above: Order Comment: 104-1 Performed By: #### L [id number] #### [facility] [address] [place], [address] Chloride [Moles/Vol] 109 mmol/L High 98-107 [facility] Comment on above: Order Comment: 104-1 Performed By: #### L [id number] #### [facility] [address] [place], [address] CO2 [Moles/Vol] 21.0 mmol/L Normal 21.0-32.0 [facility] Comment on above: Order Comment: 104-1 Performed By: #### L [id number] #### [facility] [address] [place], [address] Creatinine [Mass/Vol] 0.92 mg/dL Normal 0.55-1.02 [facility] Comment on above: Order Comment: 104-1 Result Comment: The validity of the calculated GFR GFRAA in patients over 70 years has not been determined. Clinical correlation is essential. Performed By: #### L [id number] #### [facility] [address] [place], [address] EST GFR - AA 75 mL/min Normal >60 [facility] Comment on above: Order Comment: 104-1 Result Comment: Afri can [place] GFR Calc Performed By: #### L [id number] #### [facility] [address] [place], [address] GAP 9 Normal 5-15 [facility] Comment on above: Order Comment: 104-1 Performed By: #### L [id number] #### [facility] [address] [place], [address] GFR/1.73 sq M.predicted among non-blacks MDRD (S/P/Bld) [Vol rate/Area] 62 mL/min/{1.73_m2} Normal >60 [facility] Comment on above: Order Comment: 104-1 Result Comment: Non- GFR Calc Performed By: #### L [id number] #### [facility] [address] [place], [address] Glucose [Mass/Vol] 115 mg/dL High 74-[address] [facility] Comment on above: Order Comment: 104-1 Result Comment: Fast ing Glucose result from 100 to 125 mg/dL suggests IMPAIRED HOMEOSTASIS per A.D.A. criteria. Performed By: #### L [id number] #### [facility] [address] [place], [address] Potassium [Moles/Vol] 4.4 mmol/L Normal 3.5-5.1 [facility] Comment on above: Order Comment: 104-1 Performed By: #### L [id number] #### [facility] [address] [place], [address] Sodium [Moles/Vol] 139 mmol/L Normal 136-[address] [facility] Comment on above: Order Comment: 104-1 Performed By: #### L [id number] #### [facility] [address] [place], [address] Urea nitrogen [Mass/Vol] 19 mg/dL High 7-18 [facility] Comment on above: Order Comment: 104-1 Performed By: #### L [id number] #### [facility] [address] [place], [address] Bilirubin Test strip Ql (U)O rdered By: Megan Montoya on 09-03-2024 Bilirubin Ql (U) Negative Negative [facility] Blood urea nitrogen (BUN)/cr eatinine ratioOrdered By: Megan Montoya on 09-03-2024 Urea nitrogen/Creatinine [Mass ratio] 20.7 mg/mg High 10-20 [facility] CBC-Complete Blood Cnt No Di ffon 09-03-2024 Erythrocyte distribution width (RBC) [Ratio] 17.9 % High 11.6-14.6 [facility] Comment on above: Order Comment: 104-1 Performed By: #### L 9200.0000 #### [facility] [address] [place], [address] Hematocrit (Bld) [Volume fraction] 30.8 % Low 37-47 [facility] Comment on above: Order Comment: 104-1 Performed By: #### L [id number] #### [facility] [address] [place], [address] Hemoglobin (Bld) [Mass/Vol] 9.5 g/dL Low 12.0-15.0 [facility] Comment on above: Order Comment: 104-1 Performed By: #### L [id number] #### [facility] [address] [place], [address] MCH (RBC) [Entitic mass] 25.7 pg Low 27.0-32.0 [facility] Comment on above: Order Comment: 104-1 Performed By: #### L [id number] #### [facility] [address] [place], [address] MCHC (RBC) [Mass/Vol] 30.8 g/dL Low 32-36 [facility] Comment on above: Order Comment: 104-1 Performed By: #### L [id number] #### [facility] [address] [place], [address] MCV (RBC) [Entitic vol] 83.5 fL Normal 81-99 [facility] Comment on above: Order Comment: 104-1 Performed By: #### L [id number] #### [facility] [address] [place], [address] Platelet mean volume (Bld) [Entitic vol] 10.2 fL Normal 6.2-12.0 [facility] Comment on above: Order Comment: 104-1 Performed By: #### L [id number] #### [facility] [address] [place], [address] Platelets (Bld) [#/Vol] 431 10*3/uL Normal 150-450 [facility] Comment on above: Order Comment: 104-1 Performed By: #### L [id number] #### [facility] [address] [place], [address] RBC (Bld) [#/Vol] 3.69 10*6/uL Low 4.2-5.4 [facility] Comment on above: Order Comment: 104-1 Performed By: #### L [id number] #### [facility] [address] [place], [address] RDW SD 54.3 fl High 35.1-43.9 [facility] Comment on above: Order Comment: 104-1 Performed By: #### L [id number] #### [facility] [address] [place], [address] WBC (Bld) [#/Vol] 10.6 10*3/uL Normal 4.4-11.0 [facility] Comment on above: Order Comment: 104-1 Performed By: #### L [id number] #### [facility] [address] [place], [address] Carbon dioxide measurementOr dered By: Megan Montoya on 09-03-2024 CO2 [Moles/Vol] 21.0 mmol/L 21.0-32.0 [facility] Chloride measurementOrdered By: Megan Montoya on 09-03-2024 Chloride [Moles/Vol] 109 mmol/L High 98-107 [facility] Epithelial cells.squamous LM Ql (Urine sed)Ordered By: Megan Montoya on 09-03-2024 Epithelial cells.squamous LM.HPF (Urine sed) [#/Area] 10 /[HPF] 5-10 [facility] Erythrocyte distribution wid th ratioOrdered By: Megan Montoya on 09-03-2024 Erythrocyte distribution width (RBC) [Ratio] 17.9 % High 11.6-14.6 [facility] Erythrocyte distribution wid th standard deviationOrdered By: Megan Montoya on 09-03-2024 Erythrocyte distribution width (RBC) [Entitic vol] 54.3 fL High 35.1-43.9 [facility] Estimated glomerular filtrat ion rate (GFR) AmericanOrdered By: Megan Montoya on 09-03-2024 Estimated GFR (MDRD) Amer 75 mL/min >60 [facility] Comment on above: GFR Calc Glomerular filtration rate ( GFR) estimationOrdered By: Megan Montoya on 09-03-2024 Estimated GFR (MDRD) Non-Af Amer 62 mL/min >60 [facility] Comment on above: Non- GFR Calc Glucose Ql (U)Ordered By: Johnathan Guzman on 09-03-2024 Urine Glucose (UA) Normal mg/dl Normal [facility] Glucose measurementOrdered B y: Megan Montoya on 09-03-2024 Glucose [Mass/Vol] 115 mg/dL High 74-[address] [facility] Comment on above: Fasting Glucose resu lt from 100 to 125 mg/dL suggests IMPAIRED HOMEOSTASIS per A.D.A. criteria. Hematocrit Auto (Bld) [Volum e fraction]Ordered By: Megan Montoya on 09-03-2024 Hematocrit (Bld) [Volume fraction] 30.8 % Low 37-47 [facility] Hemoglobin measurementOrdere d By: Megan Montoya on 09-03-2024 Hemoglobin (Bld) [Mass/Vol] 9.5 g/dL Low 12.0-15.0 [facility] Ketones Test strip Ql (U)Ord ered By: Megan Montoya on 09-03-2024 Ketones Ql (U) 5 mg/dl High Negative [facility] MCV (mean corpuscular volume ) determinationOrdered By: Megan Montoya on 09-03-2024 MCV (RBC) [Entitic vol] 83.5 fL 81-99 [facility] Mean corpuscular hemoglobin (MCH) determinationOrdered By: Megan Montoya on 09-03-2024 MCH (RBC) [Entitic mass] 25.7 pg Low 27.0-32.0 [facility] Mean corpuscular hemoglobin concentration (MCHC) determinationOrdered By: Megan Montoya on 09-03-2024 MCHC (RBC) [Mass/Vol] 30.8 g/dL Low 32-36 [facility] Mean platelet volume determi nationOrdered By: Megan Montoya on 09-03-2024 Platelet mean volume (Bld) [Entitic vol] 10.2 fL 6.2-12.0 [facility] Microscopic analysis of urin e for red blood cells (RBC)Ordered By: Megan Montoya on 09-03-2024 Urine RBC 5-10 SEEN /hpf 0-5 [facility] Mucus LM Ql (Urine sed)Order ed By: Megan Montoya on 09-03-2024 Mucus Ql (Urine sed) 1+ /hpf [facility] Nitrite Test strip Ql (U)Ord ered By: Megan Montoya on 09-03-2024 Nitrite Ql (U) Positive High Negative [facility] Platelet countOrdered By: Johnathan Guzman on 09-03-2024 Platelets (Bld) [#/Vol] 431 10*3/uL 150-450 [facility] Potassium measurementOrdered By: Megan Montoya on 09-03-2024 Potassium [Moles/Vol] 4.4 mmol/L 3.5-5.1 [facility] Protein Test strip Ql (U)Ord ered By: Megan Montoya on 09-03-2024 Protein Ql (U) 100 mg/dl High Negative [facility] RBC Auto (Bld) [#/Vol]Ordere d By: Megan Montoya on 09-03-2024 RBC (Bld) [#/Vol] 3.69 10*6/uL Low 4.2-5.4 [facility] Serum anion gap measurementO rdered By: Megan Montoya on 09-03-2024 Anion gap [Moles/Vol] 9 mmol/L 5-15 [facility] Serum or plasma calcium reyna urement (mass/volume)Ordered By: Megan Montoya on 09-03-2024 Calcium [Mass/Vol] 9.4 mg/dL 8.5-10.[address] [facility] Serum or plasma creatinine m easurement (mass/volume)Ordered By: Megan Montoya on 09-03-2024 Creatinine [Mass/Vol] 0.92 mg/dL 0.55-1.02 [facility] Comment on above: The validity of the calculated GFR & GFRAA in patients over 70 years has not been determined. Clinical correlation is essential. Serum or plasma urea nitroge n measurement (mass/volume)Ordered By: Megan Montoya on 09-03-2024 Urea nitrogen [Mass/Vol] 19 mg/dL High 7-18 [facility] Sodium levelOrdered By: Juan C Montoya on 09-03-2024 Sodium [Moles/Vol] 139 mmol/L 136-[address] [facility] Urine blood detectionOrdered By: Megan Montoya on 09-03-2024 Urine Occult Blood 150 /ul High Negative [facility] Urine clarityOrdered By: Pola Montoya on 09-03-2024 Clarity (U) Cloudy Clear [facility] Urine color determinationOrd ered By: Megan Montoya on 09-03-2024 Color (U) Yellow Yellow [facility] Urine cultureOrdered By: Pola Montoya on 09-03-2024 Bacteria identified Cx Nom (U) Proteus mirabilis Abnormal [facility] Bacteria identified Cx Nom (U) Klebsiella pneumoniae sp pneum Abnormal [facility] Bacteria identified Cx Nom (U) Proteus mirabilis Abnormal [facility] Bacteria identified Cx Nom (U) Klebsiella pneumoniae sp pneum Abnormal [facility] Urine leukocyte esterase det ection by dipstickOrdered By: Megan Montoya on 09-03-2024 Leukocyte esterase Test strip Ql (U) 500 /ul High Negative [facility] Urine pHOrdered By: Megan jimenez on 09-03-2024 pH (U) 6.0 [pH] 5.0 - 8.0 [facility] Urine sediment bacteria coun t by microscopy (number/high power field)Ordered By: Megan Montoya on 09-03-2024 Bacteria LM.HPF (Urine sed) [#/Area] 4 /[HPF] None Seen [facility] Urine specific gravity measu rementOrdered By: Megan Montoya on 09-03-2024 Specific gravity (U) [Rel density] 1.020 1.002-1.030 [facility] Urobilinogen Ql (U)Ordered B y: Megan Montoya on 09-03-2024 Urine Urobilinogen Normal mg/dl Normal [facility] White blood cell (WBC) count Ordered By: Megan Montoya on 09-03-2024 WBC (Bld) [#/Vol] 10.6 10*3/uL 4.4-11.0 [facility] White blood cell countOrdere d By: Megan Montoya on 09-03-2024 Urine WBC 50-100 SEEN /hpf 0-5 [facility] [id number] 08-27-2024 [id number] Patient Choice Patient Name: MEL POP Date of : 1940 Normal [facility] Progress Noteon 08-22-2024 Progress Note Normal [facility] Albumin to globulin ratioOrd ered By: Megan Montoya on 08-20-2024 Albumin/Globulin [Mass ratio] 0.7 {ratio} Low 0.9-2.4 [facility] Bilirubin, totalOrdered By: Megan Montoya on 08-20-2024 Bilirubin [Mass/Vol] 0.60 mg/dL 0.20-1.00 [facility] Comment on above: For patients on eltr ombopag therapy, use of Dimension [place] TBIL is not recommended. Blood urea nitrogen (BUN)/cr eatinine ratioOrdered By: Megan Montoya on 08-20-2024 Urea nitrogen/Creatinine [Mass ratio] 11.2 mg/mg 10-20 [facility] CBC-Complete Blood Cnt No Di ffon 08-20-2024 Erythrocyte distribution width (RBC) [Ratio] 19.2 % High 11.6-14.6 [facility] Comment on above: Performed By: #### L 100.0500, L500.4050 #### [facility] [address] [place], [address] Hematocrit (Bld) [Volume fraction] 33.4 % Low 37-47 [facility] [facility] Comment on above: Performed By: #### L 100.0500, L500.4050 #### [facility] [address] [place], [address] Hemoglobin (Bld) [Mass/Vol] 10.4 g/dL Low 12.0-15.0 [facility] Comment on above: Performed By: #### L 100.0500, L500.4050 #### [facility] [address] [place], [address] MCH (RBC) [Entitic mass] 26.3 pg Low 27.0-32.0 [facility] Comment on above: Performed By: #### L 100.0500, L500.4050 #### [facility] [address] [place], [address] MCHC (RBC) [Mass/Vol] 31.1 g/dL Low 32-36 [facility] Comment on above: Performed By: #### L 100.0500, L500.4050 #### [facility] [address] [place], [address] MCV (RBC) [Entitic vol] 84.6 fL Normal 81-99 [facility] Comment on above: Performed By: #### L 100.0500, L500.4050 #### [facility] [address] [place], [address] Platelet mean volume (Bld) [Entitic vol] 9.7 fL Normal 6.2-12.0 [facility] Comment on above: Performed By: #### L 100.0500, L500.4050 #### [facility] [address] [place], [address] Platelets (Bld) [#/Vol] 405 10*3/uL Normal 150-450 [facility] Comment on above: Performed By: #### L 100.0500, L500.4050 #### [facility] [address] [place], [address] RBC (Bld) [#/Vol] 3.95 10*6/uL Low 4.2-5.4 [facility] Comment on above: Performed By: #### L 100.0500, L500.4050 #### [facility] [address] [place], [address] RDW SD 58.9 fl High 35.1-43.9 [facility] Comment on above: Performed By: #### L 100.0500, L500.4050 #### [facility] [address] [place], [address] WBC (Bld) [#/Vol] 5.9 10*3/uL Normal 4.4-11.[address] [facility] Comment on above: Performed By: #### L 100.0500, L500.4050 #### [facility] [address] [place], [address] Carbon dioxide measurementOr dered By: Megan Montoya on 08-20-2024 CO2 [Moles/Vol] 22.0 mmol/L 21.0-32.0 [facility] Chloride measurementOrdered By: Megan Montoya on 08-20-2024 Chloride [Moles/Vol] 109 mmol/L High 98-107 [facility] Comprehensive Metabolic Prof ilon 08-20-2024 Albumin [Mass/Vol] 2.7 g/dL Low 3.2-5.[address] [facility] Comment on above: Performed By: #### L 100.0500, L500.4050 #### [facility] [address] [place], [address] Albumin/Globulin [Mass ratio] 0.7 {ratio} Low 0.9-2.4 [facility] Comment on above: Performed By: #### L 100.0500, L500.4050 #### [facility] [address] [place], [address] ALK P 117 U/L Normal 45-117 [facility] Comment on above: Performed By: #### L 100.0500, L500.4050 #### [facility] [address] [place], [address] ALT [Catalytic activity/Vol] 18 U/L Normal 13-56 [facility] Comment on above: Performed By: #### L 100.0500, L500.4050 #### [facility] [address] [place], [address] AST [Catalytic activity/Vol] 18 U/L Normal 15-37 [facility] Comment on above: Result Comment: Slig ht Hemolysis, Result may be falsely increased. Performed By: #### L 100.0500, L500.4050 #### [facility] [address] [place], [address] Bilirubin [Mass/Vol] 0.60 mg/dL Normal 0.20-1.00 [facility] Comment on above: Result Comment: For patients on eltrombopag therapy, use of Dimension [place] TBIL is not recommended. Performed By: #### L 100.0500, L500.4050 #### [facility] [address] [place], [address] BUN/CRE 11.2 RATIO Normal 10-20 [facility] Comment on above: Performed By: #### L 100.0500, L500.4050 #### [facility] [address] [place], [address] CA,Total 9.0 mg/dL Normal 8.5-10.1 [facility] Comment on above: Performed By: #### L 100.0500, L500.4050 #### [facility] [address] [place], [address] Chloride [Moles/Vol] 109 mmol/L High 98-107 [facility] Comment on above: Performed By: #### L 100.0500, L500.4050 #### [facility] [address] [place], [address] CO2 [Moles/Vol] 22.0 mmol/L Normal 21.0-32.0 [facility] Comment on above: Performed By: #### L 100.0500, L500.4050 #### [facility] [address] [place], [address] Creatinine [Mass/Vol] 0.98 mg/dL Normal 0.55-1.02 [facility] Comment on above: Result Comment: The validity of the calculated GFR GFRAA in patients over 70 years has not been determined. Clinical correlation is essential. Performed By: #### L 100.0500, L500.4050 #### [facility] [address] [place], [address] EST GFR - AA 69 mL/min Normal >60 [facility] Comment on above: Result Comment: Afri can [place] GFR Calc Performed By: #### L 100.0500, L500.4050 #### [facility] [address] [place], [address] GAP 7 Normal 5-15 [facility] Comment on above: Performed By: #### L 100.0500, L500.4050 #### [facility] [address] [place], [address] GFR/1.73 sq M.predicted among non-blacks MDRD (S/P/Bld) [Vol rate/Area] 57 mL/min/{1.73_m2} Low >60 [facility] Comment on above: Result Comment: Non- GFR Calc Performed By: #### L 100.0500, L500.4050 #### [facility] [address] [place], [address] Globulin (S) [Mass/Vol] 4.1 g/dL Normal 2.2-4.2 [facility] Comment on above: Performed By: #### L 100.0500, L500.4050 #### [facility] [address] [place], [address] Glucose [Mass/Vol] 97 mg/dL Normal 74-[address] [facility] Comment on above: Performed By: #### L 100.0500, L500.4050 #### [facility] [address] [place], [address] Potassium [Moles/Vol] 4.2 mmol/L Normal 3.5-5.1 [facility] Comment on above: Result Comment: Slig ht Hemolysis, Result may be falsely increased. Performed By: #### L 100.0500, L500.4050 #### [facility] [address] [place], [address] Sodium [Moles/Vol] 138 mmol/L Normal 136-[address] [facility] Comment on above: Performed By: #### L 100.0500, L500.4050 #### [facility] [address] [place], [address] T PROT 6.8 g/dL Normal 6.4-8.2 [facility] Comment on above: Performed By: #### L 100.0500, L500.4050 #### [facility] [address] [place], [address] Urea nitrogen [Mass/Vol] 11 mg/dL Normal 7-18 [facility] Comment on above: Performed By: #### L 100.0500, L500.4050 #### [facility] [address] [place], [address] Erythrocyte distribution wid th ratioOrdered By: Megan Montoya on 08-20-2024 Erythrocyte distribution width (RBC) [Ratio] 19.2 % High 11.6-14.6 [facility] Erythrocyte distribution wid th standard deviationOrdered By: Megan Montoya on 08-20-2024 Erythrocyte distribution width (RBC) [Entitic vol] 58.9 fL High 35.1-43.9 [facility] Estimated glomerular filtrat ion rate (GFR) AmericanOrdered By: Megan Montoya on 08-20-2024 Estimated GFR (MDRD) Amer 69 mL/min >60 [facility] Comment on above: GFR Calc Glomerular filtration rate ( GFR) estimationOrdered By: Megan Montoya on 08-20-2024 Estimated GFR (MDRD) Non-Af Amer 57 mL/min Low >60 [facility] Comment on above: Non- GFR Calc Glucose measurementOrdered B y: Megan Montoya on 08-20-2024 Glucose [Mass/Vol] 97 mg/dL 74-[address] [facility] Hematocrit Auto (Bld) [Volum e fraction]Ordered By: Megan Montoya on 08-20-2024 Hematocrit (Bld) [Volume fraction] 33.4 % Low 37-47 [facility] Hemoglobin measurementOrdere d By: Megan Montoya on 08-20-2024 Hemoglobin (Bld) [Mass/Vol] 10.4 g/dL Low 12.0-15.0 [facility] - Chemistry and C hemistry - challengeOrdered By: Megan Montoya on 08-20-2024 AST [Catalytic activity/Vol] 18 U/L 15-37 [facility] Comment on above: Slight Hemolysis, Re sult may be falsely increased. MCV (mean corpuscular volume ) determinationOrdered By: Megan Montoya on 08-20-2024 MCV (RBC) [Entitic vol] 84.6 fL 81-99 [facility] Mean corpuscular hemoglobin (MCH) determinationOrdered By: Megan Montoya on 08-20-2024 MCH (RBC) [Entitic mass] 26.3 pg Low 27.0-32.0 [facility] Mean corpuscular hemoglobin concentration (MCHC) determinationOrdered By: Megan Montoya on 08-20-2024 MCHC (RBC) [Mass/Vol] 31.1 g/dL Low 32-36 [facility] Mean platelet volume determi nationOrdered By: Megan Montoya on 08-20-2024 Platelet mean volume (Bld) [Entitic vol] 9.7 fL 6.2-12.0 [facility] Platelet countOrdered By: Johnathan Guzman on 08-20-2024 Platelets (Bld) [#/Vol] 405 10*3/uL 150-450 [facility] Potassium measurementOrdered By: Megan Montoya on 08-20-2024 Potassium [Moles/Vol] 4.2 mmol/L 3.5-5.1 [facility] Comment on above: Slight Hemolysis, Re sult may be falsely increased. RBC Auto (Bld) [#/Vol]Ordere d By: Megan Montoya on 08-20-2024 RBC (Bld) [#/Vol] 3.95 10*6/uL Low 4.2-5.4 [facility] Serum anion gap measurementO rdered By: Megan Montoya on 08-20-2024 Anion gap [Moles/Vol] 7 mmol/L 5-15 [facility] Serum globulin measurementOr dered By: Megan Montoya on 08-20-2024 Globulin (S) [Mass/Vol] 4.1 g/dL 2.2-4.2 [facility] Serum or plasma alanine hinojosa otransferase (ALT) measurementOrdered By: Megan Montoya on 08-20-2024 ALT [Catalytic activity/Vol] 18 U/L 13-56 [facility] Serum or plasma albumin reyna urement (mass/volume)Ordered By: Megan Montoya on 08-20-2024 Albumin [Mass/Vol] 2.7 g/dL Low 3.2-5.[address] [facility] Serum or plasma alkaline silvia sphatase measurementOrdered By: Megan Montoya on 08-20-2024 ALP [Catalytic activity/Vol] 117 U/L 45-117 [facility] Serum or plasma calcium reyna urement (mass/volume)Ordered By: Megan Montoya on 08-20-2024 Calcium [Mass/Vol] 9.0 mg/dL 8.5-10.[address] [facility] Serum or plasma creatinine m easurement (mass/volume)Ordered By: Megan Montoya on 08-20-2024 Creatinine [Mass/Vol] 0.98 mg/dL 0.55-1.02 [facility] Comment on above: The validity of the calculated GFR & GFRAA in patients over 70 years has not been determined. Clinical correlation is essential. Serum or plasma urea nitroge n measurement (mass/volume)Ordered By: Megan Montoya on 08-20-2024 Urea nitrogen [Mass/Vol] 11 mg/dL 7-18 [facility] Sodium levelOrdered By: Juan C Montoya on 08-20-2024 Sodium [Moles/Vol] 138 mmol/L 136-[address] [facility] Total proteinOrdered By: Pola Montoya on 08-20-2024 Protein [Mass/Vol] 6.8 g/dL 6.4-8.[address] [facility] White blood cell (WBC) count Ordered By: Megan Montoya on 08-20-2024 WBC (Bld) [#/Vol] 5.9 10*3/uL 4.4-11.[address] [facility] [id number] 08-16-2024 [id number] Normal [facility] [id number] Normal [facility] [id number] MAR & Discharge med list transmitted to [facility] via [employer] per TCC request. Electronically signed by JESSICA Leone Normal [facility] [id number] Normal [facility] Laboratory - Chemistry and C hemistry - challengeon 08-16-2024 Glucose [Mass/Vol] 120 mg/dL High 70 - 100 mg/dL [facility] No Panel Informationon 08-16 Interpretation and review of laboratory results Abnormal [facility] Performed by: [facility], [address] [place] [address], [place] [id number] CLIA ID: [id number] [facility] Nursing Noteon 08-16-2024 Nursing Note Patient picked up fo r transfer to [facility] by stretcher. Report already called to GENET Garcia. Normal [facility] Nursing Note Telephone report erin led to GENET Garcia at [facility]. Normal [facility] Progress Noteon 08-16-2024 Progress Note Normal [facility] 30on 08-15-2024 30 Normal [facility] [id number] 08-15-2024 [id number] Authorization is pending with [employer]. Ref# [id number] to be DC'd to [facility]. Dtr Fidel Sharma. CM to follow. Normal [facility] Progress Noteon 08-15-2024 Progress Note Normal [facility] 30on 08-14-2024 30 Normal [facility] [id number] 08-14-2024 [id number] Normal [facility] Progress Noteon 08-14-2024 Progress Note Normal [facility] Progress Note Normal [facility] Progress Note Normal [facility] 30on 08-13-2024 30 Normal [facility] 30 Normal [facility] [id number] 08-13-2024 [id number] Normal [facility] Progress Noteon 08-13-2024 Progress Note Normal [facility] Progress Note Normal [facility] 08-12-2024 30 Normal [facility] Progress Noteon 08-12-2024 Progress Note Normal [facility] 30on 08-11-2024 30 Normal [facility] 30 Normal [facility] [id number] 08-11-2024 [id number] CM noted DC orders i n place, Dgt touring facilities over the weekend. [facility] pending acceptance, updates sent via [employer]. Normal [facility] Progress Noteon 08-11-2024 Progress Note Normal [facility] 30on 08-10-2024 30 Normal [facility] [id number] 08-10-2024 [id number] Normal [facility] Progress Noteon 08-10-2024 Progress Note Normal [facility] [id number] 08-09-2024 [id number] Normal [facility] [id number] Normal [facility] [id number] Updated PT/OT notes placed to SNF [facility] via Careport per TCC request. Await review and response regarding ability to accept. TCC notified. Electronically signed by PROFESSIONAL FEE CODER Aracelis Gardiner [facility] [phone] Patient is medically ready for dc. PT/OT both continuing to recommend SNF. [facility] consulting services manager asked to start auth. Plan to dc back to [facility] pending auth [facility] Progress Noteon 08-09-2024 Progress Note Normal [facility] [id number] 08-08-2024 [id number] [facility] Progress Noteon 08-08-2024 Progress Note Normal [facility] Progress Note Normal [facility] Progress Note Normal [facility] 30on 08-07-2024 [address] [facility] [address] [facility] [address] [facility] [id number] 08-07-2024 [id number] [facility] Progress Noteon 08-07-2024 Progress Note Normal [facility] 30on 08-06-2024 [address] [facility] [address] [facility] [id number] 08-06-2024 [id number] Pt cont's on IV AtBs '. Plan is for pt to return to [facility]. Auth and HECTOR needed prior to DC. CM to follow. [facility] [id number] [facility] Comprehensive metabolic 1998 panelon 08-06-2024 Albumin [Mass/Vol] 2.4 g/dL Low 3.4 - 4.8 g/dL [facility] ALP [Catalytic activity/Vol] 72 U/L 40 - 150 U/L [facility] ALT [Catalytic activity/Vol] 24 U/L NINF - 30 U/L [facility] Anion gap [Moles/Vol] 7 mmol/L 3 - 13 mmol/L [facility] AST [Catalytic activity/Vol] 21 U/L NINF - 34 U/L [facility] Bilirubin [Mass/Vol] 0.9 mg/dL NINF - 1.2 mg/dL [facility] Calcium [Mass/Vol] 8.4 mg/dL Low 8.8 - 10. 0 mg/dL [facility] Chloride [Moles/Vol] 115 mmol/L High 98 - 10 7 mmol/L [facility] CO2 [Moles/Vol] 17 mmol/L Low 23 - 31 mmol/L [facility] Creatinine [Mass/Vol] 0.91 mg/dL 0.57 - 1.11 mg/dL [facility] GFR/1.73 sq M.predicted (S/P/Bld) [Vol rate/Area] 62.3 mL/min - PINF [facility] Comment on above: Calculation based on the Chronic Kidney Disease Epidemiology Collaboration (CKD-EPI) equation refit without adjustment for race Glucose [Mass/Vol] 92 mg/dL 82 - 115 mg/dL [facility] Interpretation and review of laboratory results Abnormal [facility] Potassium [Moles/Vol] 3.8 mmol/L 3.5 - 5.1 mmol/L [facility] Comment on above: Plasma potassium chris ues may be up to 0.5 mmol/L lower than serum values. Protein [Mass/Vol] 5.5 g/dL Low 6.4 - 8.3 g/dL [facility] Sodium [Moles/Vol] 139 mmol/L 136 - 145 mmol/L [facility] Urea nitrogen [Mass/Vol] 9 mg/dL 9 - 23 mg/dL [facility] Consulton 08-06-2024 Consult Normal [facility] Progress Noteon 08-06-2024 Progress Note Normal [facility] Progress Note Normal [facility] 30on 08-05-2024 [address] [facility] CBC W Auto Differential pane l (Bld)Ordered By: Frank Milligan on 08-05-2024 Basophils (Bld) [#/Vol] 0 10*3/uL 0.0 - 0.2 10*3/uL [facility] Basophils/100 WBC (Bld) 0.3 % 0.0 - 2.0 % [facility] Eosinophils (Bld) [#/Vol] 0.1 10*3/uL 0.0 - 0.5 10*3/uL [facility] Eosinophils/100 WBC (Bld) 1.6 % 0.0 - 6.0 % [facility] Erythrocyte distribution width (RBC) [Ratio] 18.9 % High 11.5 - 15.0 % [facility] Hematocrit (Bld) [Volume fraction] 33.3 % Low 35.0 - 47.0 % [facility] Hemoglobin (Bld) [Mass/Vol] 10.3 g/dL Low 11.7 - 16.0 g/dL [facility] Immature granulocytes (Bld) [#/Vol] 0.1 10*3/uL High NINF - 0.1 10*3/uL [facility] Immature granulocytes/100 WBC (Bld) 0.7 % 0.0 - 2.0 % [facility] Interpretation and review of laboratory results Abnormal [facility] Lymphocytes (Bld) [#/Vol] 1.1 10*3/uL 1.0 - 4.3 10*3/uL [facility] Lymphocytes/100 WBC (Bld) 15.6 % 15.0 - 45.0 % [facility] MCH (RBC) [Entitic mass] 26 pg 26.0 - 34.0 pg [facility] MCHC (RBC) [Mass/Vol] 30.9 % 30.5 - 36.0 % [facility] MCV (RBC) [Entitic vol] 84.1 fL 77.0 - 99.0 fL [facility] Monocytes (Bld) [#/Vol] 0.7 10*3/uL 0.0 - 0.9 10*3/uL [facility] Monocytes/100 WBC (Bld) 9.9 % 5.0 - 13.0 % [facility] Neutrophils (Bld) [#/Vol] 5.3 10*3/uL 1.8 - 7.5 10*3/uL [facility] Neutrophils/100 WBC (Bld) 71.9 % 38.0 - 82.0 % [facility] Nucleated RBC/100 WBC (Bld) [Ratio] 0 % [facility] Platelet mean volume (Bld) [Entitic vol] 9.2 fL 9.0 - 12.7 fL [facility] Platelets (Bld) [#/Vol] 235 10*3/uL 140 - 440 10*3/uL [facility] RBC (Bld) [#/Vol] 3.96 10*6/uL 3.80 - 5.2 0 10*6/uL [facility] WBC (Bld) [#/Vol] 7.3 10*3/uL 3.6 - 10.7 10*3/uL [facility] CBC W Auto Differential pane l (Bld)Ordered By: Aden Baires on 08-05-2024 Basophils (Bld) [#/Vol] 0 10*3/uL 0.0 - 0.2 10*3/uL [facility] Basophils/100 WBC (Bld) 0.3 % 0.0 - 2.0 % [facility] Eosinophils (Bld) [#/Vol] 0.1 10*3/uL 0.0 - 0.5 10*3/uL [facility] Eosinophils/100 WBC (Bld) 1.5 % 0.0 - 6.0 % [facility] Erythrocyte distribution width (RBC) [Ratio] 19.2 % High 11.5 - 15.0 % [facility] Hematocrit (Bld) [Volume fraction] 31.9 % Low 35.0 - 47.0 % [facility] Hemoglobin (Bld) [Mass/Vol] 9.9 g/dL Low 11.7 - 16.0 g/dL [facility] Immature granulocytes (Bld) [#/Vol] 0 10*3/uL NINF - 0.1 10*3/uL [facility] Immature granulocytes/100 WBC (Bld) 0.5 % 0.0 - 2.0 % [facility] Interpretation and review of laboratory results Abnormal [facility] Lymphocytes (Bld) [#/Vol] 1.1 10*3/uL 1.0 - 4.3 10*3/uL [facility] Lymphocytes/100 WBC (Bld) 16.6 % 15.0 - 45.0 % [facility] MCH (RBC) [Entitic mass] 26.2 pg 26.0 - 34.0 pg [facility] MCHC (RBC) [Mass/Vol] 31 % 30.5 - 36.0 % [facility] MCV (RBC) [Entitic vol] 84.4 fL 77.0 - 99.0 fL [facility] Monocytes (Bld) [#/Vol] 0.6 10*3/uL 0.0 - 0.9 10*3/uL [facility] Monocytes/100 WBC (Bld) 9.1 % 5.0 - 13.0 % [facility] Neutrophils (Bld) [#/Vol] 4.7 10*3/uL 1.8 - 7.5 10*3/uL [facility] Neutrophils/100 WBC (Bld) 72 % 38.0 - 82.0 % [facility] Nucleated RBC/100 WBC (Bld) [Ratio] 0 % [facility] Platelet mean volume (Bld) [Entitic vol] 10 fL 9.0 - 12.7 fL [facility] Platelets (Bld) [#/Vol] 242 10*3/uL 140 - 440 10*3/uL [facility] RBC (Bld) [#/Vol] 3.78 10*6/uL Low 3.80 - 5.2 0 10*6/uL [facility] WBC (Bld) [#/Vol] 6.5 10*3/uL 3.6 - 10.7 10*3/uL [facility] CBC WITH AUTO DIFFERENTIALon 08-05-2024 Basophils (Bld) [#/Vol] 0.0 10*3/uL Normal 0.0-0.2 [facility] Comment on above: Performed By: #### L [id number] ####Flavor Room Worker: VELMA VALADEZ ([id number])[facility])[address] [place] [address] Basophils/100 WBC (Bld) 0.3 % Normal 0.0-2.0 [facility] Comment on above: Performed By: #### L [id number] ####Flavor Room Worker: VELMA VALADEZ ([id number])[facility] ([facility])[address] [place] [address] [place] Eosinophils (Bld) [#/Vol] 0.1 10*3/uL Normal 0.0-0.5 [facility] Comment on above: Performed By: #### L [id number] ####Flavor Room Worker: VELMA VALADEZ ([id number])[facility] ([facility])[address] [place] [address] [place] Eosinophils/100 WBC (Bld) 1.6 % Normal 0.0-6.0 [facility] Comment on above: Performed By: #### L [id number] ####Flavor Room Worker: VELMA VALADEZ ([id number])[address] Erythrocyte distribution width (RBC) [Ratio] 18.9 % High 11.5-15.0 [facility] Comment on above: Performed By: #### L [id number] ####Flavor Room Worker: VELMA VALADEZ ([id number])[address] Hematocrit (Bld) [Volume fraction] 33.3 % Low 35.0-47.0 [facility] Comment on above: Performed By: #### L [id number] ####Flavor Room Worker: VELMA VALADEZ ([id number])[address] Hemoglobin (Bld) [Mass/Vol] 10.3 g/dL Low 11.7-16.0 [facility] Comment on above: Performed By: #### L [id number] ####Flavor Room Worker: VELMA VALADEZ ([id number])[address] IMMATURE GRANS % 0.7 % Normal 0.0-2.0 [facility] Comment on above: Performed By: #### L [id number] ####Flavor Room Worker: VELMA VALADEZ ([id number])[address] IMMATURE GRANS ABSOLUTE 0.1 10*3/uL High <0.1 [facility] Comment on above: Performed By: #### L [id number] ####Flavor Room Worker: VELMA VALADEZ ([id number])[address] Lymphocytes (Bld) [#/Vol] 1.1 10*3/uL Normal 1.0-4.3 [facility] Comment on above: Performed By: #### L [id number] ####Flavor Room Worker: VELMA VALADEZ ([id number])[facility])[address] [place] [address] Lymphocytes/100 WBC (Bld) 15.6 % Normal 15.0-45.0 [facility] Comment on above: Performed By: #### L [id number] ####Flavor Room Worker: VELMA VALADEZ ([id number])[facility])[address] [place] [address] MCH (RBC) [Entitic mass] 26.0 pg Normal 26.0-34.0 [facility] Comment on above: Performed By: #### L [id number] ####Flavor Room Worker: VELMA VALADEZ ([id number])[facility])[address] [place] [address] MCHC 30.9 % Normal 30.5-36.0 [facility] Comment on above: Performed By: #### L [id number] ####Flavor Room Worker: VELMA VALADEZ ([id number])[facility] ([facility])[address] [place] [address] MCV (RBC) [Entitic vol] 84.1 fL Normal 77.0-99.0 [facility] Comment on above: Performed By: #### L [id number] ####Flavor Room Worker: VELMA VALADEZ ([id number])[facility])[address] [place] [address] Monocytes (Bld) [#/Vol] 0.7 10*3/uL Normal 0.0-0.9 [facility] Comment on above: Performed By: #### L [id number] ####Flavor Room Worker: VELMA VALADEZ ([id number])[facility])[address] [place] [address] Monocytes/100 WBC (Bld) 9.9 % Normal 5.0-13.0 [facility] Comment on above: Performed By: #### L [id number] ####Flavor Room Worker: VELMA VALADEZ ([id number])[facility])[address] [place] [address] NEUTROPHILS ABSOLUTE 5.3 10*3/uL Normal 1.8-7.5 [facility] Comment on above: Performed By: #### L [id number] ####Flavor Room Worker: VELMA VALADEZ ([id number])[facility] ([facility])[address] [place] [address] Neutrophils/100 WBC (Bld) 71.9 % Normal 38.0-82.[address] [facility] Comment on above: Performed By: #### L [id number] ####Flavor Room Worker: VELMA VALADEZ ([id number])[facility] ([facility])[address] [place] [address] NRBC 0.0 /100 WBCs Normal 0.0-2.0 [facility] Comment on above: Performed By: #### L [id number] ####Flavor Room Worker: VELMA VALADEZ ([id number])[facility] ([facility])[address] [place] [address] Platelet mean volume (Bld) [Entitic vol] 9.2 fL Normal 9.0-12.[address] [facility] Comment on above: Performed By: #### L [id number] ####Flavor Room Worker: VELMA VALADEZ ([id number])[facility] ([facility])[address] [place] [address] Platelets (Bld) [#/Vol] 235 10*3/uL Normal 140-[address] [facility] Comment on above: Performed By: #### L [id number] ####Flavor Room Worker: VELMA VALADEZ ([id number])[facility] ([facility])[address] [place] [address] RBC (Bld) [#/Vol] 3.96 10*6/uL Normal 3.80-5.[address] [facility] Comment on above: Performed By: #### L [id number] ####Flavor Room Worker: VELMA VALADEZ ([id number])[facility] ([facility])[address] [place] [address] [place] WBC (Bld) [#/Vol] 7.3 10*3/uL Normal 3.6-10.7 [facility] Comment on above: Performed By: #### L [id number] ####Flavor Room Worker: VELMA VALADEZ ([id number])[facility])[address] [place] [address] Basophils (Bld) [#/Vol] 0.0 10*3/uL Normal 0.0-0.2 [facility] Comment on above: Performed By: #### L [id number] ####Flavor Room Worker: VELMA VALADEZ ([id number])[facility] ([facility])[address] [place] [address] Basophils/100 WBC (Bld) 0.3 % Normal 0.0-2.0 [facility] Comment on above: Performed By: #### L [id number] ####Flavor Room Worker: VELMA VALADEZ ([id number])[facility])[address] [place] [address] Eosinophils (Bld) [#/Vol] 0.1 10*3/uL Normal 0.0-0.5 [facility] Comment on above: Performed By: #### L [id number] ####Flavor Room Worker: VELMA VALADEZ ([id number])[facility])[address] [place] [address] Eosinophils/100 WBC (Bld) 1.5 % Normal 0.0-6.0 [facility] Comment on above: Performed By: #### L [id number] ####Flavor Room Worker: VELMA VALADEZ ([id number])[facility])[address] [place] [address] Erythrocyte distribution width (RBC) [Ratio] 19.2 % High 11.5-15.0 [facility] Comment on above: Performed By: #### L [id number] ####Flavor Room Worker: VELMA VALADEZ ([id number])[facility])[address] [place] [address] Hematocrit (Bld) [Volume fraction] 31.9 % Low 35.0-47.0 [facility] Comment on above: Performed By: #### L [id number] ####Flavor Room Worker: VELMA VALADEZ ([id number])[facility])[address] [place] [address] Hemoglobin (Bld) [Mass/Vol] 9.9 g/dL Low 11.7-16.0 [facility] Comment on above: Performed By: #### L [id number] ####Flavor Room Worker: VELMA VALADEZ ([id number])[facility])[address] [place] [address] IMMATURE GRANS % 0.5 % Normal 0.0-2.0 [facility] Comment on above: Performed By: #### L [id number] ####Flavor Room Worker: VELMA VALADEZ ([id number])[facility])[address] [place] [address] IMMATURE GRANS ABSOLUTE 0.0 10*3/uL Normal <0.1 [facility] Comment on above: Performed By: #### L [id number] ####Flavor Room Worker: VELMA VALADEZ ([id number])[facility])[address] [place] [address] Lymphocytes (Bld) [#/Vol] 1.1 10*3/uL Normal 1.0-4.3 [facility] Comment on above: Performed By: #### L [id number] ####Flavor Room Worker: VELMA VALADEZ ([id number])[facility])[address] [place] [address] Lymphocytes/100 WBC (Bld) 16.6 % Normal 15.0-45.0 [facility] Comment on above: Performed By: #### L [id number] ####Flavor Room Worker: VELMA VALADEZ ([id number])[facility])[address] [place] [address] MCH (RBC) [Entitic mass] 26.2 pg Normal 26.0-34.0 [facility] Comment on above: Performed By: #### L [id number] ####Flavor Room Worker: VELMA [id number])[facility] ([facility])[address] [place] [address] MCHC 31.0 % Normal 30.5-36.[address] [facility] Comment on above: Performed By: #### L [id number] ####Flavor Room Worker: VELMA VALADEZ ([id number])[facility] ([facility])[address] [place] [address] MCV (RBC) [Entitic vol] 84.4 fL Normal 77.0-99.0 [facility] Comment on above: Performed By: #### L [id number] ####Flavor Room Worker: VELMA VALADEZ ([id number])[facility] ([facility])[address] [place] [address] Monocytes (Bld) [#/Vol] 0.6 10*3/uL Normal 0.0-0.[address] [facility] Comment on above: Performed By: #### L [id number] ####Flavor Room Worker: VELMA VALADEZ ([id number])[facility] ([facility])[address] [place] [address] Monocytes/100 WBC (Bld) 9.1 % Normal 5.0-13.0 [facility] Comment on above: Performed By: #### L [id number] ####Flavor Room Worker: VELMA VALADEZ ([id number])[facility] ([facility])[address] [place] [address] NEUTROPHILS ABSOLUTE 4.7 10*3/uL Normal 1.8-7.5 [facility] Comment on above: Performed By: #### L [id number] ####Flavor Room Worker: VELMA VALADEZ ([id number])[facility] ([facility])[address] [place] [address] Neutrophils/100 WBC (Bld) 72.0 % Normal 38.0-82.[address] [facility] Comment on above: Performed By: #### L [id number] ####Flavor Room Worker: VELMA VALADEZ ([id number])[facility] ([facility])[address] [place] [address] NRBC 0.0 /100 WBCs Normal 0.0-2.0 [facility] Comment on above: Performed By: #### L [id number] ####Flavor Room Worker: VELMA VALADEZ ([id number])[facility])[address] [place] [address] Platelet mean volume (Bld) [Entitic vol] 10.0 fL Normal 9.0-12.7 [facility] Comment on above: Performed By: #### L [id number] ####Flavor Room Worker: VELMA VALADEZ ([id number])[facility] ([facility])[address] [place] [address] Platelets (Bld) [#/Vol] 242 10*3/uL Normal 140-[address] [facility] Comment on above: Performed By: #### L [id number] ####Flavor Room Worker: VELMA VALADEZ ([id number])[facility])[address] [place] [address] RBC (Bld) [#/Vol] 3.78 10*6/uL Low 3.80-5.20 [facility] Comment on above: Performed By: #### L [id number] ####Flavor Room Worker: VELMA VALADEZ ([id number])[facility])[address] [place] [address] WBC (Bld) [#/Vol] 6.5 10*3/uL Normal 3.6-10.7 [facility] Comment on above: Performed By: #### L [id number] ####Flavor Room Worker: VELMA VALADEZ ([id number])[facility] ([facility])[address] [place] [address] COMPREHENSIVE METABOLIC PANE Gilberto 08-05-2024 Albumin [Mass/Vol] 2.4 g/dL Low 3.4-4.[address] [facility] Comment on above: Performed By: #### L [id number] ####Flavor Room Worker: VELMA VALADEZ ([id number])[facility])[address] [place] [address] ALP [Catalytic activity/Vol] 72 U/L Normal 40-150 [facility] Comment on above: Performed By: #### L [id number] ####Flavor Room Worker: VELMA VALADEZ ([id number])[facility])[address] [place] [address] ALT [Catalytic activity/Vol] 24 U/L Normal <[address] [facility] Comment on above: Performed By: #### L [id number] ####Flavor Room Worker: VELMA VALADEZ ([id number])[facility])[address] [place] [address] Anion gap [Moles/Vol] 7 mmol/L Normal 3-13 [facility] Comment on above: Performed By: #### L [id number] ####Flavor Room Worker: VELMA VALADEZ ([id number])[facility])[address] [place] [address] AST [Catalytic activity/Vol] 21 U/L Normal <34 [facility] Comment on above: Performed By: #### L [id number] ####Flavor Room Worker: VELMA VALADEZ ([id number])[facility] ([facility])[address] [place] [address] Bilirubin [Mass/Vol] 0.9 mg/dL Normal <1.2 [facility] Comment on above: Performed By: #### L [id number] ####Flavor Room Worker: VELMA VALADEZ ([id number])[facility] ([facility])[address] [place] [address] Calcium [Mass/Vol] 8.4 mg/dL Low 8.8-10.0 [facility] Comment on above: Performed By: #### L [id number] ####Flavor Room Worker: VELMA VALADEZ ([id number])[facility] ([facility])[address] [place] [address] [place] Chloride [Moles/Vol] 115 mmol/L High 98-107 [facility] Comment on above: Performed By: #### L [id number] ####Flavor Room Worker: VELMA VALADEZ ([id number])[facility] ([facility])[address] [place] [address] [place] CO2 [Moles/Vol] 17 mmol/L Low 23-31 [facility] Comment on above: Performed By: #### L [id number] ####Flavor Room Worker: VELMA VALADEZ ([id number])[facility])[address] [place] [address] Creatinine [Mass/Vol] 0.91 mg/dL Normal 0.57-1.11 [facility] Comment on above: Performed By: #### L [id number] ####Flavor Room Worker: VELMA VALADEZ ([id number])[facility])[address] [place] [address] [place] GLOMERULAR FILTRATION RATE ML/MIN/1.73 SQ M.PREDICTED 62.3 mL/min/1.73m*2 Normal >60.[address] [facility] Comment on above: Result Comment: Calc ulation based on the Chronic Kidney Disease Epidemiology Collaboration (CKD-EPI) equation refit without adjustment for race Performed By: #### L [id number] ####Flavor Room Worker: VELMA VALADEZ ([id number])[facility] ([facility])[address] [place] [address] [place] Glucose [Mass/Vol] 92 mg/dL Normal 82-[address] [facility] Comment on above: Performed By: #### L [id number] ####Flavor Room Worker: VELMA VALADEZ ([id number])[facility])[address] [place] [address] [place] Potassium [Moles/Vol] 3.8 mmol/L Normal 3.5-5.1 [facility] Comment on above: Result Comment: [facility] potassium values may be up to 0.5 mmol/L lower than serum values. Performed By: #### L [id number] ####Flavor Room Worker: VELMA VALADEZ ([id number])[facility] ([facility])[address] [place] [address] [place] Protein [Mass/Vol] 5.5 g/dL Low 6.4-8.[address] [facility] Comment on above: Performed By: #### L [id number] ####Flavor Room Worker: VELMA VALADEZ ([id number])[facility])[address] [place] [address] Sodium [Moles/Vol] 139 mmol/L Normal 136-145 [facility] Comment on above: Performed By: #### L [id number] ####Flavor Room Worker: VELMA VALADEZ ([id number])[facility])[address] [place] [address] Urea nitrogen [Mass/Vol] 9 mg/dL Normal 9-23 [facility] Comment on above: Performed By: #### L [id number] ####Flavor Room Worker: VELMA VALADEZ ([id number])[facility] ([facility])[address] [place] [address] Albumin [Mass/Vol] 2.3 g/dL Low 3.4-4.8 [facility] Comment on above: Performed By: #### L [id number] ####Flavor Room Worker: VELMA VALADEZ ([id number])[facility] ([facility])[address] [place] [address] ALP [Catalytic activity/Vol] 74 U/L Normal 40-150 [facility] Comment on above: Performed By: #### L [id number] ####Flavor Room Worker: VELMA VALADEZ ([id number])[facility])[address] [place] [address] ALT [Catalytic activity/Vol] 27 U/L Normal <30 [facility] Comment on above: Performed By: #### L [id number] ####Flavor Room Worker: VELMA VALADEZ ([id number])[facility])[address] [place] [address] Anion gap [Moles/Vol] 5 mmol/L Normal 3-13 [facility] Comment on above: Performed By: #### L [id number] ####Flavor Room Worker: VELMA VALADEZ ([id number])[facility])[address] [place] [address] AST [Catalytic activity/Vol] 24 U/L Normal <34 [facility] Comment on above: Performed By: #### L [id number] ####Flavor Room Worker: VELMA [id number])[facility] [place] [address] Bilirubin [Mass/Vol] 0.6 mg/dL Normal <1.2 [facility] Comment on above: Performed By: #### L [id number] ####Flavor Room Worker: VELMA VALADEZ ([id number])[facility])[address] [place] [address] Calcium [Mass/Vol] 8.1 mg/dL Low 8.8-10.[address] [facility] Comment on above: Performed By: #### L [id number] ####Flavor Room Worker: VELMA VALADEZ ([id number])[facility])[address] [place] [address] Chloride [Moles/Vol] 108 mmol/L High 98-107 [facility] Comment on above: Performed By: #### L [id number] ####Flavor Room Worker: VELMA VALADEZ ([id number])[facility])[address] [place] [address] CO2 [Moles/Vol] 21 mmol/L Low 23-31 [facility] Comment on above: Performed By: #### L [id number] ####Flavor Room Worker: VELMA VALADEZ ([id number])[facility])[address] [place] [address] Creatinine [Mass/Vol] 0.89 mg/dL Normal 0.57-1.11 [facility] Comment on above: Performed By: #### L [id number] ####Flavor Room Worker: VELMA VALADEZ ([id number])[facility] ([facility])[address] [place] [address] GLOMERULAR FILTRATION RATE ML/MIN/1.73 SQ M.PREDICTED 64.0 mL/min/1.73m*2 Normal >60.[address] [facility] Comment on above: Result Comment: Calc ulation based on the Chronic Kidney Disease Epidemiology Collaboration (CKD-EPI) equation refit without adjustment for race Performed By: #### L [id number] ####Flavor Room Worker: VELMA VALADEZ ([id number])[facility] ([facility])[address] [place] [address] Glucose [Mass/Vol] 85 mg/dL Normal 82-[address] [facility] Comment on above: Performed By: #### L [id number] ####Flavor Room Worker: VELMA VALADEZ ([phone])[facility])[address] [place] [address] Potassium [Moles/Vol] 3.8 mmol/L Normal 3.5-5.1 [facility] Comment on above: Result Comment: [facility] potassium values may be up to 0.5 mmol/L lower than serum values. Performed By: #### L [id number] ####Flavor Room Worker: VELMA VALADEZ ([id number])[facility])[address] [place] [address] Protein [Mass/Vol] 5.2 g/dL Low 6.4-8.[address] [facility] Comment on above: Performed By: #### L [id number] ####Flavor Room Worker: VELMA VALADEZ ([id number])[facility] ([facility])[address] [place] [address] Sodium [Moles/Vol] 134 mmol/L Low 136-[address] [facility] Comment on above: Performed By: #### L [id number] ####Flavor Room Worker: VELMA VALADEZ ([id number])[facility])[address] [place] [address] Urea nitrogen [Mass/Vol] 13 mg/dL Normal 9-[address] [facility] Comment on above: Performed By: #### L [id number] ####Flavor Room Worker: VELMA VALADEZ ([id number])[facility])[address] [place] [address] Comprehensive metabolic 1998 panelon 08-05-2024 Albumin [Mass/Vol] 2.3 g/dL Low 3.4 - 4.8 g/dL [facility] ALP [Catalytic activity/Vol] 74 U/L 40 - 150 U/L [facility] ALT [Catalytic activity/Vol] 27 U/L NINF - 30 U/L [facility] Anion gap [Moles/Vol] 5 mmol/L 3 - 13 mmol/L [facility] AST [Catalytic activity/Vol] 24 U/L NINF - 34 U/L [facility] Bilirubin [Mass/Vol] 0.6 mg/dL NINF - 1.2 mg/dL [facility] Calcium [Mass/Vol] 8.1 mg/dL Low 8.8 - 10. 0 mg/dL [facility] Chloride [Moles/Vol] 108 mmol/L High 98 - 10 7 mmol/L [facility] CO2 [Moles/Vol] 21 mmol/L Low 23 - 31 mmol/L [facility] Creatinine [Mass/Vol] 0.89 mg/dL 0.57 - 1.11 mg/dL [facility] GFR/1.73 sq M.predicted (S/P/Bld) [Vol rate/Area] 64 mL/min - PINF [facility] Comment on above: Calculation based on the Chronic Kidney Disease Epidemiology Collaboration (CKD-EPI) equation refit without adjustment for race Glucose [Mass/Vol] 85 mg/dL 82 - 115 mg/dL [facility] Interpretation and review of laboratory results Abnormal [facility] Potassium [Moles/Vol] 3.8 mmol/L 3.5 - 5.1 mmol/L [facility] Comment on above: Plasma potassium chris ues may be up to 0.5 mmol/L lower than serum values. Protein [Mass/Vol] 5.2 g/dL Low 6.4 - 8.3 g/dL [facility] Sodium [Moles/Vol] 134 mmol/L Low 136 - 145 mmol/L [facility] Urea nitrogen [Mass/Vol] 13 mg/dL 9 - 23 mg/dL [facility] Progress Noteon 08-05-2024 Progress Note Normal [facility] Progress Note Normal [facility] 30on 08-04-2024 30 Normal [facility] [address] [facility] CBC W Auto Differential pane l (Bld)Ordered By: Devika Eisenberg on 08-04-2024 Basophils (Bld) [#/Vol] 0 10*3/uL 0.0 - 0.2 10*3/uL [facility] Basophils/100 WBC (Bld) 0.2 % 0.0 - 2.0 % [facility] Eosinophils (Bld) [#/Vol] 0.1 10*3/uL 0.0 - 0.5 10*3/uL [facility] Eosinophils/100 WBC (Bld) 1.4 % 0.0 - 6.0 % [facility] Erythrocyte distribution width (RBC) [Ratio] 19.3 % High 11.5 - 15.0 % [facility] Hematocrit (Bld) [Volume fraction] 33 % Low 35.0 - 47.0 % [facility] Hemoglobin (Bld) [Mass/Vol] 10 g/dL Low 11.7 - 16.0 g/dL [facility] Immature granulocytes (Bld) [#/Vol] 0 10*3/uL NINF - 0.1 10*3/uL [facility] Immature granulocytes/100 WBC (Bld) 0.5 % 0.0 - 2.0 % [facility] Interpretation and review of laboratory results Abnormal [facility] Lymphocytes (Bld) [#/Vol] 1 10*3/uL 1.0 - 4.3 10*3/uL [facility] Lymphocytes/100 WBC (Bld) 17.7 % 15.0 - 45.0 % [facility] MCH (RBC) [Entitic mass] 25.8 pg Low 26.0 - 34.0 pg [facility] MCHC (RBC) [Mass/Vol] 30.3 % Low 30.5 - 36.0 % [facility] MCV (RBC) [Entitic vol] 85.1 fL 77.0 - 99.0 fL [facility] Monocytes (Bld) [#/Vol] 0.5 10*3/uL 0.0 - 0.9 10*3/uL [facility] Monocytes/100 WBC (Bld) 9.5 % 5.0 - 13.0 % [facility] Neutrophils (Bld) [#/Vol] 3.9 10*3/uL 1.8 - 7.5 10*3/uL [facility] Neutrophils/100 WBC (Bld) 70.7 % 38.0 - 82.0 % [facility] Nucleated RBC/100 WBC (Bld) [Ratio] 0 % [facility] Platelet mean volume (Bld) [Entitic vol] 9.8 fL 9.0 - 12.7 fL [facility] Platelets (Bld) [#/Vol] 280 10*3/uL 140 - 440 10*3/uL [facility] RBC (Bld) [#/Vol] 3.88 10*6/uL 3.80 - 5.2 0 10*6/uL [facility] WBC (Bld) [#/Vol] 5.6 10*3/uL 3.6 - 10.7 10*3/uL [facility] CBC WITH AUTO DIFFERENTIALon 08-04-2024 Basophils (Bld) [#/Vol] 0.0 10*3/uL Normal 0.0-0.2 [facility] Comment on above: Performed By: #### L [id number] ####[employer] Worker: VELMA VALADEZ ([phone])[facility] ([facility])[address] [place] [address] Basophils/100 WBC (Bld) 0.2 % Normal 0.0-2.0 [facility] Comment on above: Performed By: #### L [id number] ####[employer] Worker: VELMA VALADEZ ([id number])[facility])[address] [place] [address] Eosinophils (Bld) [#/Vol] 0.1 10*3/uL Normal 0.0-0.5 [facility] Comment on above: Performed By: #### L [id number] ####Flavor Room Worker: VELMA VALADEZ ([id number])[facility])[address] [place] [address] Eosinophils/100 WBC (Bld) 1.4 % Normal 0.0-6.0 [facility] Comment on above: Performed By: #### L [id number] ####Flavor Room Worker: VELMA VALADEZ ([id number])[facility])[address] [place] [address] Erythrocyte distribution width (RBC) [Ratio] 19.3 % High 11.5-15.0 [facility] Comment on above: Performed By: #### L [id number] ####Flavor Room Worker: VELMA VALADEZ ([id number])[facility])[address] [place] [address] Hematocrit (Bld) [Volume fraction] 33.0 % Low 35.0-47.0 [facility] Comment on above: Performed By: #### L [id number] ####Flavor Room Worker: VELMA VALADEZ ([id number])[facility])[address] [place] [address] Hemoglobin (Bld) [Mass/Vol] 10.0 g/dL Low 11.7-16.0 [facility] Comment on above: Performed By: #### L [id number] ####Flavor Room Worker: VELMA VALADEZ ([id number])[facility])[address] [place] [address] IMMATURE GRANS % 0.5 % Normal 0.0-2.0 [facility] Comment on above: Performed By: #### L [id number] ####Flavor Room Worker: VELMA VALADEZ ([id number])[facility])[address] [place] [address] IMMATURE GRANS ABSOLUTE 0.0 10*3/uL Normal <0.1 [facility] Comment on above: Performed By: #### L [id number] ####Flavor Room Worker: VELMA VALADEZ ([id number])[facility])[address] [place] [address] Lymphocytes (Bld) [#/Vol] 1.0 10*3/uL Normal 1.0-4.3 [facility] Comment on above: Performed By: #### L [id number] ####Flavor Room Worker: VELMA VALADEZ ([id number])[facility])[address] [place] [address] Lymphocytes/100 WBC (Bld) 17.7 % Normal 15.0-45.0 [facility] Comment on above: Performed By: #### L [id number] ####Flavor Room Worker: VELMA VALADEZ ([id number])[facility])[address] [place] [address] MCH (RBC) [Entitic mass] 25.8 pg Low 26.0-34.0 [facility] Comment on above: Performed By: #### L [id number] ####Flavor Room Worker: VELMA [id number])[facility] ([facility])[address] [place] [address] MCHC 30.3 % Low 30.5-36.0 [facility] Comment on above: Performed By: #### L [id number] ####Flavor Room Worker: VELMA VALADEZ ([id number])[facility] ([facility])[address] [place] [address] MCV (RBC) [Entitic vol] 85.1 fL Normal 77.0-99.0 [facility] Comment on above: Performed By: #### L [id number] ####Flavor Room Worker: VELMA VALADEZ ([id number])[facility] ([facility])[address] [place] [address] Monocytes (Bld) [#/Vol] 0.5 10*3/uL Normal 0.0-0.9 [facility] Comment on above: Performed By: #### L [id number] ####Flavor Room Worker: VELMA VALADEZ ([id number])[facility] ([facility])[address] [place] [address] Monocytes/100 WBC (Bld) 9.5 % Normal 5.0-13.0 [facility] Comment on above: Performed By: #### L [id number] ####Flavor Room Worker: VELMA VALADEZ ([id number])[facility] ([facility])[address] [place] [address] NEUTROPHILS ABSOLUTE 3.9 10*3/uL Normal 1.8-7.5 [facility] Comment on above: Performed By: #### L [id number] ####Flavor Room Worker: VELMA VALADEZ ([id number])[facility] ([facility])[address] [place] [address] Neutrophils/100 WBC (Bld) 70.7 % Normal 38.0-82.0 [facility] Comment on above: Performed By: #### L [id number] ####Flavor Room Worker: VELMA VALADEZ ([id number])[facility] ([facility])[address] [place] [address] NRBC 0.0 /100 WBCs Normal 0.0-2.0 [facility] Comment on above: Performed By: #### L [id number] ####Flavor Room Worker: VELMA VALDAEZ ([id number])[facility])[address] [place] [address] Platelet mean volume (Bld) [Entitic vol] 9.8 fL Normal 9.0-12.7 [facility] Comment on above: Performed By: #### L [id number] ####Flavor Room Worker: VELMA VALADEZ ([id number])[facility] ([facility])[address] [place] [address] Platelets (Bld) [#/Vol] 280 10*3/uL Normal 140-440 [facility] Comment on above: Performed By: #### L [id number] ####Flavor Room Worker: VELMA VALADEZ ([id number])[facility])[address] [place] [address] RBC (Bld) [#/Vol] 3.88 10*6/uL Normal 3.80-5.20 [facility] Comment on above: Performed By: #### L [id number] ####Flavor Room Worker: VELMA VALADEZ ([id number])[facility])[address] [place] [address] WBC (Bld) [#/Vol] 5.6 10*3/uL Normal 3.6-10.7 [facility] Comment on above: Performed By: #### L [id number] ####Flavor Room Worker: VELMA VALADEZ ([id number])[facility] ([facility])[address] [place] [address] COMPREHENSIVE METABOLIC PANE Gilberto 08-04-2024 Albumin [Mass/Vol] 2.3 g/dL Low 3.4-4.8 [facility] Comment on above: Performed By: #### L [id number] ####Flavor Room Worker: VELMA VALADEZ ([id number])[facility])[address] [place] [address] ALP [Catalytic activity/Vol] 68 U/L Normal 40-[address] [facility] Comment on above: Performed By: #### L [id number] ####Flavor Room Worker: VELMA VALADEZ ([id number])[facility] ([facility])[address] [place] [address] ALT [Catalytic activity/Vol] 26 U/L Normal <30 [facility] Comment on above: Performed By: #### L [id number] ####Flavor Room Worker: VELMA VALADEZ ([id number])[facility] ([facility])[address] [place] [address] Anion gap [Moles/Vol] 6 mmol/L Normal 3-13 [facility] Comment on above: Performed By: #### L [id number] ####Flavor Room Worker: VELMA VALADEZ ([id number])[facility])[address] [place] [address] AST [Catalytic activity/Vol] 25 U/L Normal <34 [facility] Comment on above: Performed By: #### L [id number] ####Flavor Room Worker: VELMA VALADEZ ([id number])[facility] ([facility])[address] [place] [address] Bilirubin [Mass/Vol] 0.5 mg/dL Normal <1.2 [facility] Comment on above: Performed By: #### L [id number] ####Flavor Room Worker: VELMA VALADEZ ([id number])[facility] ([facility])[address] [place] [address] Calcium [Mass/Vol] 8.2 mg/dL Low 8.8-10.0 [facility] Comment on above: Performed By: #### L [id number] ####Flavor Room Worker: VELMA VALADEZ ([id number])[facility] ([facility])[address] [place] [address] [place] Chloride [Moles/Vol] 112 mmol/L High 98-107 [facility] Comment on above: Performed By: #### L AB17 ####Flavor Room Worker: VELMA VALADEZ ([id number])[facility] ([facility])[address] [place] [address] [place] CO2 [Moles/Vol] 21 mmol/L Low 23-31 [facility] Comment on above: Performed By: #### L AB17 ####Flavor Room Worker: VELMA VALADEZ ([id number])[facility])[address] [place] [address] Creatinine [Mass/Vol] 1.13 mg/dL High 0.57-1.11 [facility] Comment on above: Performed By: #### L AB17 ####Flavor Room Worker: VELMA VALADEZ ([id number])[facility])[address] [place] [address] GLOMERULAR FILTRATION RATE ML/MIN/1.73 SQ M.PREDICTED 48.1 mL/min/1.73m*2 Low >60.[address] [facility] Comment on above: Result Comment: Calc ulation based on the Chronic Kidney Disease Epidemiology Collaboration (CKD-EPI) equation refit without adjustment for race Performed By: #### L [id number] ####Flavor Room Worker: VELMA VALADEZ ([id number])[facility] ([facility])[address] [place] [address] Glucose [Mass/Vol] 153 mg/dL High 82-[address] [facility] Comment on above: Performed By: #### L [id number] ####Flavor Room Worker: VELMA VALADEZ ([id number])[facility])[address] [place] [address] Potassium [Moles/Vol] 3.9 mmol/L Normal 3.5-5.1 [facility] Comment on above: Result Comment: [facility] potassium values may be up to 0.5 mmol/L lower than serum values. Performed By: #### L AB17 ####Flavor Room Worker: VELMA VALADEZ ([id number])[facility] ([facility])[address] [place] [address] Protein [Mass/Vol] 5.2 g/dL Low 6.4-8.[address] [facility] Comment on above: Performed By: #### L AB17 ####Flavor Room Worker: VELMA VALADEZ ([id number])[facility] ([facility])[address] [place] [address] Sodium [Moles/Vol] 139 mmol/L Normal 136-145 [facility] Comment on above: Performed By: #### L [id number] ####Flavor Room Worker: VELMA VALADEZ ([id number])[facility])[address] [place] [address] Urea nitrogen [Mass/Vol] 26 mg/dL High 9-[address] [facility] Comment on above: Performed By: #### L [id number] ####Flavor Room Worker: VELMA VALADEZ ([id number])[facility] ([facility])[address] [place] [address] Comprehensive metabolic 1998 panelon 08-04-2024 Albumin [Mass/Vol] 2.3 g/dL Low 3.4 - 4.8 g/dL [facility] ALP [Catalytic activity/Vol] 68 U/L 40 - 150 U/L [facility] ALT [Catalytic activity/Vol] 26 U/L NINF - 30 U/L [facility] Anion gap [Moles/Vol] 6 mmol/L 3 - 13 mmol/L [facility] AST [Catalytic activity/Vol] 25 U/L NINF - 34 U/L [facility] Bilirubin [Mass/Vol] 0.5 mg/dL NINF - 1.2 mg/dL [facility] Calcium [Mass/Vol] 8.2 mg/dL Low 8.8 - 10. 0 mg/dL [facility] Chloride [Moles/Vol] 112 mmol/L High 98 - 10 7 mmol/L [facility] CO2 [Moles/Vol] 21 mmol/L Low 23 - 31 mmol/L [facility] Creatinine [Mass/Vol] 1.13 mg/dL High 0.57 - 1.11 mg/dL [facility] GFR/1.73 sq M.predicted (S/P/Bld) [Vol rate/Area] 48.1 mL/min Low - PINF [facility] Comment on above: Calculation based on the Chronic Kidney Disease Epidemiology Collaboration (CKD-EPI) equation refit without adjustment for race Glucose [Mass/Vol] 153 mg/dL High 82 - 115 mg/dL [facility] Interpretation and review of laboratory results Abnormal [facility] Potassium [Moles/Vol] 3.9 mmol/L 3.5 - 5.1 mmol/L [facility] Comment on above: Plasma potassium chris ues may be up to 0.5 mmol/L lower than serum values. Protein [Mass/Vol] 5.2 g/dL Low 6.4 - 8.3 g/dL [facility] Sodium [Moles/Vol] 139 mmol/L 136 - 145 mmol/L [facility] Urea nitrogen [Mass/Vol] 26 mg/dL High 9 - 23 mg/dL [facility] Nursing Noteon 08-04-2024 Nursing Note Bedside swallow completed. Pt passed and tolerated well tolerated well. Normal [facility] Progress Noteon 08-04-2024 Progress Note Normal [facility] 30on 08-03-2024 [address] [facility] [address] [facility] [address] [facility] [id number] 08-03-2024 [id number] Normal [facility] BASIC METABOLIC PANELon 07-18 Anion gap [Moles/Vol] 6 mmol/L Normal 3-13 [facility] Comment on above: Performed By: #### L AB15 ####Flavor Room Worker: VELMA VALADEZ ([id number])[facility] ([facility])[address] [place] [address] Calcium [Mass/Vol] 8.5 mg/dL Low 8.8-10.[address] [facility] Comment on above: Performed By: #### L AB15 ####Flavor Room Worker: VELMA VALADEZ ([id number])[facility] ([facility])[address] [place] [address] [place] Chloride [Moles/Vol] 105 mmol/L Normal 98-107 [facility] Comment on above: Performed By: #### L AB15 ####Flavor Room Worker: VELMA VALADEZ ([id number])[facility] ([facility])[address] [place] [address] [place] CO2 [Moles/Vol] 27 mmol/L Normal 23-31 [facility] Comment on above: Performed By: #### L AB15 ####Flavor Room Worker: VELMA VALADEZ ([id number])[facility] ([address] Creatinine [Mass/Vol] 1.18 mg/dL High 0.57-1.11 [facility] Comment on above: Performed By: #### L AB15 ####Flavor Room Worker: VELMA VALADEZ ([id number])[facility])[address] [place] [address] GLOMERULAR FILTRATION RATE ML/MIN/1.73 SQ M.PREDICTED 45.6 mL/min/1.73m*2 Low >60.[address] [facility] Comment on above: Result Comment: Calc ulation based on the Chronic Kidney Disease Epidemiology Collaboration (CKD-EPI) equation refit without adjustment for race Performed By: #### L AB15 ####Flavor Room Worker: VELMA VALADEZ ([id number])[address] Glucose [Mass/Vol] 100 mg/dL Normal 82-[address] [facility] Comment on above: Performed By: #### L AB15 ####Flavor Room Worker: VELMA VALADEZ ([id number])[address] Potassium [Moles/Vol] 4.7 mmol/L Normal 3.5-5.1 [facility] Comment on above: Result Comment: [facility] potassium values may be up to 0.5 mmol/L lower than serum values. Performed By: #### L AB15 ####Flavor Room Worker: VELMA VALADEZ ([id number])[facility])[address] [place] [address] Sodium [Moles/Vol] 138 mmol/L Normal 136-[address] [facility] Comment on above: Performed By: #### L AB15 ####Flavor Room Worker: VELMA [id number])[address] Urea nitrogen [Mass/Vol] 33 mg/dL High 9-[address] [facility] Comment on above: Performed By: #### L AB15 ####Flavor Room Worker: VELMA [id number])[facility] [place] [address] Basic metabolic 1998 panelOr dered By: Juni Millard on 08-03-2024 Anion gap [Moles/Vol] 6 mmol/L 3 - 13 mmol/L [facility] Calcium [Mass/Vol] 8.5 mg/dL Low 8.8 - 10. 0 mg/dL [facility] Chloride [Moles/Vol] 105 mmol/L 98 - 10 7 mmol/L [facility] CO2 [Moles/Vol] 27 mmol/L 23 - 31 mmol/L [facility] Creatinine [Mass/Vol] 1.18 mg/dL High 0.57 - 1.11 mg/dL [facility] GFR/1.73 sq M.predicted (S/P/Bld) [Vol rate/Area] 45.6 mL/min Low - PINF [facility] Comment on above: Calculation based on the Chronic Kidney Disease Epidemiology Collaboration (CKD-EPI) equation refit without adjustment for race Glucose [Mass/Vol] 100 mg/dL 82 - 115 mg/dL [facility] Interpretation and review of laboratory results Abnormal [facility] Potassium [Moles/Vol] 4.7 mmol/L 3.5 - 5.1 mmol/L [facility] Comment on above: Plasma potassium chris ues may be up to 0.5 mmol/L lower than serum values. Sodium [Moles/Vol] 138 mmol/L 136 - 145 mmol/L [facility] Urea nitrogen [Mass/Vol] 33 mg/dL High 9 - 23 mg/dL [facility] CBC W Auto Differential pane l (Bld)Ordered By: Christin Mayes on 08-03-2024 Erythrocyte distribution width (RBC) [Ratio] 19.4 % High 11.5 - 15.0 % [facility] Hematocrit (Bld) [Volume fraction] 38.7 % 35.0 - 47.0 % [facility] Hemoglobin (Bld) [Mass/Vol] 12.1 g/dL 11.7 - 16.0 g/dL [facility] MCH (RBC) [Entitic mass] 26 pg 26.0 - 34.0 pg [facility] MCHC (RBC) [Mass/Vol] 31.3 % 30.5 - 36.0 % [facility] MCV (RBC) [Entitic vol] 83.2 fL 77.0 - 99.0 fL [facility] Nucleated RBC/100 WBC (Bld) [Ratio] 0 % [facility] Platelet mean volume (Bld) [Entitic vol] 9.8 fL 9.0 - 12.7 fL [facility] Comment on above: MPV is a calculated measurement using platelet volume ratio Platelets (Bld) [#/Vol] 303 10*3/uL 140 - 440 10*3/uL [facility] RBC (Bld) [#/Vol] 4.65 10*6/uL 3.80 - 5.2 0 10*6/uL [facility] WBC (Bld) [#/Vol] 9.1 10*3/uL 3.6 - 10.7 10*3/uL [facility] CBC WITH AUTO DIFFERENTIALon 08-03-2024 Erythrocyte distribution width (RBC) [Ratio] 19.4 % High 11.5-15.[address] [facility] Comment on above: Performed By: #### [place]on [id number], [id number] ####Flavor Room Worker: VELMA VALADEZ ([id number])[facility] ROSANGELA RITTMAN (RL[facility])[address] [place] [address] Hematocrit (Bld) [Volume fraction] 38.7 % Normal 35.0-47.[address] [facility] Comment on above: Performed By: #### Weston [id number], [id number] ####Flavor Room Worker: VELMA VALADEZ ([id number])[facility] ROSANGELA CalvinTMAN ([facility])[address] [place] [address] Hemoglobin (Bld) [Mass/Vol] 12.1 g/dL Normal 11.7-16.[address] [facility] Comment on above: Performed By: #### L [id number], [id number] ####Flavor Room Worker: VELMA VALADEZ ([id number])[facility] ROSANGELA CalvinTMAN ([facility])[address] [place] [address] MCH (RBC) [Entitic mass] 26.0 pg Normal 26.0-34.[address] [facility] Comment on above: Performed By: #### L [id number], [id number] ####Flavor Room Worker: VELMA VALADEZ ([id number])[facility] ADAMES RITTMAN (SWRLAB)[address] MCHC 31.3 % Normal 30.5-36.[address] [facility] Comment on above: Performed By: #### L [id number], [id number] ####Flavor Room Worker: VELMA VALADEZ ([id number])IN[facility] ADAMES [facility] ([facility])[address] [place] [address] MCV (RBC) [Entitic vol] 83.2 fL Normal 77.0-99.0 [facility] Comment on above: Performed By: #### L [id number], [id number] ####Flavor Room Worker: VELMA VALADEZ ([id number])[facility] ADAMES [facility] ([facility])[address] [place] [address] NRBC 0.0 /100 WBCs Normal 0.0-2.0 [facility] Comment on above: Performed By: #### L [id number], [id number] ####Flavor Room Worker: VELMA VALADEZ ([id number])[facility] ADAMES RITTMAN (SWRL[facility])[address] [place] [address] Platelet mean volume (Bld) [Entitic vol] 9.8 fL Normal 9.0-12.[address] [facility] Comment on above: Result Comment: MPV is a calculated measurement using platelet volume ratio Performed By: #### L [id number], [id number] ####Flavor Room Worker: VELMA VALADEZ ([id number])[facility]ITAL[facility] ADAMES RITTMAN (SWRLAB)[address] [place] [address] [place] Platelets (Bld) [#/Vol] 303 10*3/uL Normal 140-[address] [facility] Comment on above: Performed By: #### L [id number], [id number] ####Flavor Room Worker: VELMA VALADEZ ([id number])[facility] ADAMES RITTMAN (SWRLAB)[address] [place] [address] [place] RBC (Bld) [#/Vol] 4.65 10*6/uL Normal 3.80-5.[address] [facility] Comment on above: Performed By: #### L [id number], [id number] ####Flavor Room Worker: VELMA VALADEZ ([id number])[facility]ITAL[facility] VERDINTMAN (SWRLAB)[address] WBC (Bld) [#/Vol] 9.1 10*3/uL Normal 3.6-10.[address] [facility] Comment on above: Performed By: #### Weston [id number], [id number] ####Flavor Room Worker: VELMA VALADEZ ([id number])[facility]ITAL[facility] VERDINTMAN (SWRLAB)[address] [place] [address] COMPREHENSIVE METABOLIC PANE Gilberto 08-03-2024 Albumin [Mass/Vol] 2.8 g/dL Low 3.4-4.[address] [facility] Comment on above: Performed By: #### Weston AB17, [id number], LAB99 ####Flavor Room Worker: VELMA VALADEZ ([id number])[facility]ITAL[facility] VERDINTMAN (SWRLAB)[address] [place] [address] ALP [Catalytic activity/Vol] 82 U/L Normal 40-[address] [facility] Comment on above: Performed By: #### L AB17, [id number], LAB99 ####Flavor Room Worker: VELMA VALADEZ ([id number])[facility] ADAMES RITTMAN (SWRLAB)[address] ALT [Catalytic activity/Vol] 26 U/L Normal <[address] [facility] Comment on above: Performed By: #### L AB17, [id number], LAB99 ####Flavor Room Worker: VELMA VALADEZ ([id number])[facility] ADAMES RITTMAN (SWRL[facility])[address] Anion gap [Moles/Vol] 9 mmol/L Normal 3-13 [facility] Comment on above: Performed By: #### L AB17, [id number], LAB99 ####Flavor Room Worker: VELMA VALADEZ ([id number])[facility]A ROSANGELA RITTMAN (SWRLAB)[address] [place] [address] [place] AST [Catalytic activity/Vol] 36 U/L High <[address] [facility] Comment on above: Result Comment: TCSi gnificant interference from hemolysis. Result integrity compromised. Interpret with caution. Performed By: #### Weston AB17, [id number], LAB99 ####Flavor Room Worker: VELMA VALADEZ ([id number])[facility] ROSANGELA RITTMAN (SWRLAB)[address] Bilirubin [Mass/Vol] 0.7 mg/dL Normal <1.2 [facility] Comment on above: Performed By: #### Weston REIS17, [id number], LAB99 ####Flavor Room Worker: VELMA VALADEZ ([id number])[facility]ITAL[facility] SANCHEZROSANGELA RITTMAN (SWRLAB)[address] [place] [address] [place] Calcium [Mass/Vol] 9.0 mg/dL Normal 8.8-10.[address] [facility] Comment on above: Performed By: #### Weston HOLLY, [id number], LAB99 ####Flavor Room Worker: VELMA VALADEZ ([id number])[facility] ROSANGELA RITTMAN (SWRLAB)[address] [place] [address] [place] Chloride [Moles/Vol] 109 mmol/L High 98-107 [facility] Comment on above: Performed By: #### Weston RESI17, [id number], LAB99 ####Flavor Room Worker: VELMA VALADEZ ([id number])[facility] ROSANGELA RITTMAN (SWRLAB)[address] [place] [address] [place] CO2 [Moles/Vol] 21 mmol/L Low 23-31 [facility] Comment on above: Performed By: #### L AB17, [id number], LAB99 ####Flavor Room Worker: VELMA VALADEZ ([id number])[facility] ROSANGELA RITTMAN (SWRLAB)[address] [place] [address] [place] Creatinine [Mass/Vol] 1.30 mg/dL High 0.57-1.11 [facility] Comment on above: Performed By: #### Weston HOLLY, [id number], LAB99 ####Flavor Room Worker: VELMA VALADEZ ([id number])[facility]ITAL[facility] VERDINTMAN (SWRLAB)[address] [place] [address] GLOMERULAR FILTRATION RATE ML/MIN/1.73 SQ M.PREDICTED 40.6 mL/min/1.73m*2 Low >60.[address] [facility] Comment on above: Result Comment: Calc ulation based on the Chronic Kidney Disease Epidemiology Collaboration (CKD-EPI) equation refit without adjustment for race Performed By: #### Weston HOLLY, [id number], LAB99 ####Flavor Room Worker: VELMA VALADEZ ([id number])[facility]ITAL[facility] VERDINTMAN (SWRLAB)[address] [place] [address] Glucose [Mass/Vol] 103 mg/dL Normal 82-[address] [facility] Comment on above: Performed By: #### Weston HOLLY, [id number], LAB99 ####Flavor Room Worker: VELMA VALADEZ ([id number])[facility] HOSPITALSim[facility] ADAMES [place] (SWRLAB)[address] [place] [address] Potassium [Moles/Vol] 5.9 mmol/L High 3.5-5.1 [facility] Comment on above: Result Comment: TCSi gnificant interference from hemolysis. Result integrity compromised. Interpret with caution. Performed By: #### Weston HOLLY, [id number], LAB99 ####Flavor Room Worker: VELMA VALADEZ ([id number])[facility] HOSPITALSimran VERDINTMAN (SWRLAB)[address] [place] [address] Protein [Mass/Vol] 6.7 g/dL Normal 6.4-8.[address] [facility] Comment on above: Result Comment: TCPo tential interference from hemolysis Performed By: #### Weston REIS17, [id number], LAB99 ####Flavor Room Worker: VELMA VALADEZ ([id number])[facility] HOSPITALSimran ADAMES [place] (SWRLAB)[address] [place] [address] Sodium [Moles/Vol] 139 mmol/L Normal 136-[address] [facility] Comment on above: Performed By: #### L AB17, IYQ156, LAB99 ####Flavor Room Worker: VELMA VALADEZ ([id number])[facility] [place] (SWRLAB)[address] Urea nitrogen [Mass/Vol] 34 mg/dL High 9-[address] [facility] Comment on above: Performed By: #### L AB17, [id number], LAB99 ####Flavor Room Worker: VELMA VALADEZ ([id number])[facility] (SWRLAB)[address] ABDOMEN PELVIS WO IV CONT RASTon 08-03-2024 CT ABDOMEN PELVIS WO IV CONTRAST Normal [facility] CT Abdomen and Pelvis WO con traston 08-03-2024 1. Extensive colonic diverticulosis without evidence of diverticulitis 2. Consolidation in the medial left lower lobe, possibly pneumonia 3. No bowel dilatation Report Dictated on Electronically Signed By: Ming Fry MD Electronically Signed Date/Time: 08/03/2024 4:05 AM [facility] RADIOLOGY SYSTEM Patient Name: [facility]EL CARVER RD [facility] 1940 [id number] Exam Date/Time: 08/03/2024 03:05 Procedure: CT ABDOMEN [...] 08/03/2024 Patient Name: [facility]EL POP : 1940 [id number] Exam Date/Time: 08/03/2024 03:05 Procedure: CT ABDOMEN [...] Electronically Signed Date/Time: 08/03/2024 4:05 AM EST [facility] Radiology Study observation (narrative) [facility] alth CT Abdomen and Pelvis WO con trastOrdered By: Ming Fry on 08-03-2024 [facility] Work Phone: Comprehensive metabolic 1998 panelon 08-03-2024 Albumin [Mass/Vol] 2.8 g/dL Low 3.4 - 4.8 g/dL [facility] ALP [Catalytic activity/Vol] 82 U/L 40 - 150 U/L [facility] ALT [Catalytic activity/Vol] 26 U/L NINF - 30 U/L [facility] Anion gap [Moles/Vol] 9 mmol/L 3 - 13 mmol/L [facility] AST [Catalytic activity/Vol] 36 U[facility]L [facility]L [facility] Comment on above: TC Significant interference from hemolysis. Result integrity compromised. Interpret with caution. Bilirubin [Mass/Vol] 0.7 mg/dL NINF - 1.2 mg/dL [facility] Calcium [Mass/Vol] 9 mg/dL 8.8 - 10. 0 mg/dL [facility] Chloride [Moles/Vol] 109 mmol/L High 98 - 10 7 mmol/L [facility] CO2 [Moles/Vol] 21 mmol/L Low 23 - 31 mmol/L [facility] Creatinine [Mass/Vol] 1.3 mg/dL High 0.57 - 1.11 mg/dL [facility] GFR/1.73 sq M.predicted (S/P/Bld) [Vol rate/Area] 40.6 mL/min Low - PINF [facility] Comment on above: Calculation based on the Chronic Kidney Disease Epidemiology Collaboration (CKD-EPI) equation refit without adjustment for race Glucose [Mass/Vol] 103 mg/dL 82 - 115 mg/dL [facility] Interpretation and review of laboratory results Abnormal [facility] Potassium [Moles/Vol] 5.9 mmol/L High 3.5 - 5.1 mmol/L [facility] Comment on above: TC Significant interference from hemolysis. Result integrity compromised. Interpret with caution. Protein [Mass/Vol] 6.7 g/dL 6.4 - 8.3 g/dL [facility] Comment on above: TC Potential interference from hemolysis Sodium [Moles/Vol] 139 mmol/L 136 - 145 mmol/L [facility] Urea nitrogen [Mass/Vol] 34 mg/dL High 9 - 23 mg/dL [facility] ED Nursing Noteon 08-03-2024 ED Nursing Note Pt placed in roundtrip Normal [facility] ED Nursing Note ED CT and ED xray notified that patient is ready Normal [facility] ED Provider Noteon ED Provider Note Normal [facility] GASTROINTESTINAL PCR PANELon 08-03-2024 GASTROINTESTINAL PCR PANEL Normal [facility] Comment on above: Performed By: #### L [id number] ####Flavor Room Worker: VELMA VALADEZ ([id number])[facility] (SACLAB)[address] [place] [address] Gastrointestinal pathogens p masoud OXANA+probe (Stl)Ordered By: Maximus Dimas on 08-03-2024 Adenovirus F 40/41 Not detected Not Detected [facility] Astrovirus Not detected Not Detected [facility] Campylobacter Not detected Not Detected [facility] Cryptosporidium Not detected Not Detected [facility] Cyclospora cayetanensis Not detected Not Detected [facility] Entamoeba histolytica Not detected Not Detected [facility] Enterotoxigenic E coli (ETEC) Not detected Not Detected [facility] Giardia lamblia Not detected Not Detected [facility] Interpretation and review of laboratory results Abnormal [facility] Norovirus GI/GII Detected Abnormal Not Detected [facility] Plesiomonas shigelloides Not detected Not Detected [facility] Rotavirus A Not detected Not Detected [facility] Salmonella Not detected Not Detected [facility] Sapovirus Not detected Not Detected [facility] Shiga toxin-producing E coli (STEC) Not detected Not Detected [facility] Shigella/Enteroinvasive E coli (EIEC) Not detected Not Detected [facility] Vibrio cholerae Not detected Not Detected [facility] Vibrio species Not detected Not Detected [facility] Yersinia enterocolitica Not detected Not Detected [facility] A positive Norovirus result on the Film Array GI panel should be interpreted in the context of the patient's history and clinical picture. If results are not consistent, result should be confirmed with a Norovirus specific assay. Methodology: Multiplex PCR [facility] LACTIC ACID WITH REFLEXon Lactate [Moles/Vol] 1.9 mmol/L Normal 0.5-2.[address] [facility] Comment on above: Performed By: #### L [id number] ####Flavor Room Worker: VELMA VALADEZ ([id number])[facility] (SACLAB[address] LIPASEon 08-03-2024 Lipase [Catalytic activity/Vol] 8 U/L Normal <[address] [facility] Comment on above: Performed By: #### L AB17, [id number], LAB99 ####Flavor Room Worker: VELMA VALADEZ ([id number])[facility] (SWRLAB)[address] [place] [address] Laboratory - Chemistry and C hemistry - challengeon 08-03-2024 Lactate [Moles/Vol] 1.9 mmol/L 0.5 - 2. 2 mmol/L [facility] Anion gap (Bld) [Moles/Vol] 8 mmol/L 3.00 - 13.00 [facility] Calcium.ionized (Bld) [Moles/Vol] 4.7 mg/dl 4.30 - 5.20 mg/dl [facility] Chloride [Moles/Vol] 107 mmol/L 98 - 11 4 mmol/L [facility] CO2 [Moles/Vol] 23 mmol/L 21 - 29 mmol/L [facility] Creatinine [Mass/Vol] 1.3 mg/dL 0.6 - 1.3 mg/dL [facility] GFR/1.73 sq M.predicted CKD-EPI (S/P/Bld) [Vol rate/Area] 40.6 [facility] Comment on above: KDIGO guidelines pro [...] 118 mg/dL High 70 - 100 mg/dL [facility] Potassium [Moles/Vol] 4.3 mmol/L 3.4 - 5.1 mmol/L [facility] Sodium [Moles/Vol] 138 mmol/L 133 - 145 mmol/L [facility] Urea (Bld) [Mass/Vol] 33 mg/dL High 4 - 22 mg/dL [facility] Lipase [Catalytic activity/Vol] 8 U/L NINF - 55 U/L [facility] Magnesium [Mass/Vol] 1.9 mg/dL 1.6 - 2 .6 mg/dL [facility] Laboratory - Microbiology an d Antimicrobial susceptibilityon 08-03-2024 FLUAV RNA OXANA+probe Ql (Resp) Not detected Not Detected [facility] FLUBV RNA OXANA+probe Ql (Resp) Not detected Not Detected [facility] RSV RNA OXANA+probe Ql (Resp) Not detected Not Detected [facility] SARS-CoV-2 (COVID-19) RNA OXANA+probe Ql (Resp) Not detected Not Detected [facility] SARS-CoV-2 (COVID-19) RNA OXANA+probe Ql (Unsp spec) Methodology: real-time, RT-PCR The SARS-CoV-2, Flu A/B, and RSV Combo assay is intended for in vitro diagnostic use under the FDA Emergency Use Authorization (EUA). This test has not been FDA cleared or approved. In compliance with this authorization, please visit www.fda.gov/media/24976 5/download or www.fda.gov/media/65102 6/download to access the applicable information sheets. [facility] MAGNESIUMon 08-03-2024 Magnesium [Mass/Vol] 1.9 mg/dL Normal 1.6-2.6 [facility] Comment on above: Result Comment: BUBBA R COMMENTS:Higher values can be expected in females during menses. Performed By: #### L AB17, [id number], LAB99 ####Flavor Room Worker: VELMA VALADEZ ([id number])[facility] [employer] [place] (SWRLAB)[address] [place] [address] MANUAL DIFFERENTIALon 2024 BASOPHILS (10*3/UL) IN BLOOD BY MANUAL COUNT 0.0 10*3/uL Normal 0.0-0.2 [facility] Comment on above: Performed By: #### L [id number], [id number] ####Flavor Room Worker: VELMA VALADEZ ([id number])[facility]PITALUS [employer] [place] (SWRLAB)[address] [place] [address] [place] BASOPHILS TOTAL PER COUNTED LEUKOCYTES BY MANUAL COUNT 0 Normal [facility] Comment on above: Performed By: #### L [id number], [id number] ####Flavor Room Worker: VELMA VALADEZ ([id number])[facility] ROSANGELA [place] (SWRLAB)[address] [place] [address] [place] BASOPHILS/100 LEUKOCYTES IN BLOOD BY MANUAL COUNT 0 % Normal 0-2 [facility] Comment on above: Performed By: #### L [id number], [id number] ####Flavor Room Worker: VELMA VALADEZ ([id number])[facility] ROSANGELA [place] (SWRLAB)[address] [place], [place] [address] [place] CELLS COUNTED TOTAL (#) IN BLOOD 100 Normal [facility] Comment on above: Performed By: #### L [id number], [id number] ####Flavor Room Worker: VELMA VALADEZ ([id number])[facility] [place] [place] (SWRLAB)[address] [place] [address] [place] DIFFERENTIAL METHOD Automated differenti al reported after manual slide review Normal [facility] Comment on above: Performed By: #### L [id number], [id number] ####Flavor Room Worker: VELMA VALADEZ ([id number])[facility] ROSANGELA [place] (SWRLAB)[address] [place] [address] [place] EOSINOPHILS (10*3/UL) IN BLOOD BY MANUAL COUNT 0.1 10*3/uL Normal 0.0-0.[address] [facility] Comment on above: Performed By: #### Weston [id number], HNL9630 ####Flavor Room Worker: VELMA VALADEZ ([id number])[facility] [place] (SWRLAB)[address] [place] [address] [place] EOSINOPHILS TOTAL PER COUNTED LEUKOCYTES BY MANUAL COUNT 1 Normal 0-[address] [facility] Comment on above: Performed By: #### Weston [id number], [id number] ####Flavor Room Worker: VELMA VALADEZ ([id number])[facility] [place] [place] (SWRLAB)[address] [place] [address] [place] EOSINOPHILS/100 LEUKOCYTES IN BLOOD BY MANUAL COUNT 1 % Normal 0-[address] [facility] Comment on above: Performed By: #### L FY9588, [id number] ####Flavor Room Worker: VELMA VALADEZ ([id number])[facility] ROSANGELA [place] (SWRLAB)[address] [place] [address] [place] LEUKOCYTE MORPHOLOGY FINDING IN BLOOD Normal Normal [facility] Comment on above: Performed By: #### L HA3908, IHE2377 ####Flavor Room Worker: VELMA VALADEZ ([id number])[facility] [place] (SWRLAB)[address] [place] [address] [place] LEUKOCYTES (10*3/UL) NUCLEATED ERYTHROCYTE ADJUST 9.1 10*3/uL Normal 3.6-10.7 [facility] Comment on above: Performed By: #### L [id number], [id number] ####Flavor Room Worker: VELMA VALADEZ ([id number])[facility] ROSANGELA [place] (SWRLAB)[address] [place] [address] [place] LYMPHOCYTES (10*3/UL) IN BLOOD BY MANUAL COUNT 0.5 10*3/uL Low 1.0-4.3 [facility] Comment on above: Performed By: #### L [id number], ZOQ0114 ####Flavor Room Worker: VELMA VALADEZ ([id number])[facility] ROSANGELA [place] (SWRLAB)[address] [place] [address] [place] LYMPHOCYTES TOTAL PER COUNTED LEUKOCYTES BY MANUAL COUNT 5 Normal [facility] Comment on above: Performed By: #### Weston [id number], [id number] ####Flavor Room Worker: VELMA VALADEZ ([id number])[facility] ROSANGELA [place] (SWRLAB)[address] [place] [address] [place] LYMPHOCYTES/100 LEUKOCYTES IN BLOOD BY MANUAL COUNT 5 % Low 15-45 [facility] Comment on above: Performed By: #### L [id number], [id number] ####Flavor Room Worker: VELMA VALADEZ ([id number])[facility]ITALSimran SANCHEZROSANGELA [place] (SWRLAB)[address] [place] [address] [place] MONOCYTES (10*3/UL) IN BLOOD BY MANUAL COUNT 0.5 10*3/uL Normal 0.0-0.9 [facility] Comment on above: Performed By: #### L [id number], ZYV1186 ####Flavor Room Worker: VELMA VALADEZ ([id number])[facility] ROSANGELA [place] (SWRLAB)[address] [place] [address] [place] MONOCYTES TOTAL PER COUNTED LEUKOCYTES BY MANUAL COUNT 6 Normal [facility] Comment on above: Performed By: #### L [id number], KNL9100 ####Flavor Room Worker: VELMA VALADEZ ([id number])[facility] [place] (SWRLAB)[address] [place] [address] [place] MONOCYTES/100 LEUKOCYTES IN BLOOD BY MANUAL COUNT 6 % Normal 5-13 [facility] Comment on above: Performed By: #### L MO2512, [id number] ####Flavor Room Worker: VELMA VALADEZ ([id number])[facility] [place] (SWRLAB)[address] [place] [address] [place] NEUTROPHILS (SEGS+BANDS) (10*3/UL) BY MANUAL COUNT 7.9 10*3/uL High 1.8-7.0 [facility] Comment on above: Performed By: #### L [id number], [id number] ####Flavor Room Worker: VELMA VALADEZ ([id number])[facility]ITALSim[facility] ADAMES [place] (SWRLAB)[address] [place] [address] [place] NEUTROPHILS TOTAL PER COUNTED LEUKOCYTES BY MANUAL COUNT 87 Normal [facility] Comment on above: Performed By: #### L [id number], [id number] ####Flavor Room Worker: VELMA VALADEZ ([id number])[facility]ITALSimran SANCHEZROSANGELA [place] (SWRLAB)[address] [place] [address] [place] PLATELET MORPHOLOGY IN BLOOD Normal Normal [facility] Comment on above: Performed By: #### L [id number], [id number] ####Flavor Room Worker: VELMA VALADEZ ([id number])[facility] ROSANGELA [place] (SWRLAB)[address] [place] [address] [place] RBC MORPHOLOGY IN BLOOD Normal Normal [facility] Comment on above: Performed By: #### L [id number], [id number] ####Flavor Room Worker: VELMA VALADEZ ([id number])[facility]ITALSimran SANCHEZROSNAGELA [place] (SWRLAB)[address] [place] [address] [place] SEGEMENTED NEUTROPHILS/100 LEUKOCYTES BY MANUAL COUNT 87 % High 38-82 [facility] Comment on above: Performed By: #### L [id number], [id number] ####Flavor Room Worker: VELMA VALADEZ ([id number])[facility] ROSANGELA [place] (SWRLAB)[address] [place] [address] [place] UNCLASSIFIED CELLS (10*3/UL) IN BLOOD BY MANUAL COUNT 0.1 10*3/uL Normal [facility] Comment on above: Performed By: #### L [id number], KZP2684 ####Flavor Room Worker: VELMA VALADEZ ([id number])[facility] ROSANGELA [place] (SWRLAB)[address] [place] [address] [place] UNCLASSIFIED CELLS/100 LEUKOCYTES IN BLOOD 1.00 % Normal [facility] Comment on above: Performed By: #### L [id number], [id number] ####Flavor Room Worker: VELMA VALADEZ ([id number])[facility] ROSANGELA [place] (SWRLAB)[address] [place] [address] [place] Magnesium [Mass/Vol]on 08-03 Higher values can be expected in females during menses. [facility] Manual differential performe d Ql (Bld)on 08-03-2024 Basophils (Bld) [#/Vol] 0 10*3/uL 0.0 - 0.2 10*3/uL [facility] Basophils Manual 0 [facility]th Basophils/100 WBC (Bld) 0 % 0 - 2 % [facility] Cells Counted Total (Bld) [#] 100 {cells} [facility] Differential Method Automated differenti al reported after manual slide review [facility] Eosinophils (Bld) [#/Vol] 0.1 10*3/uL 0.0 - 0.5 10*3/uL [facility] Eosinophils Manual 1 0 - 1 [facility] Eosinophils/100 WBC (Bld) 1 % 0 - 6 % [facility] Leukocyte morphology finding Nom (Bld) Normal [facility] Lymphocytes (Bld) [#/Vol] 0.5 10*3/uL Low 1.0 - 4.3 10*3/uL [facility] Lymphocytes Manual 5 [facility] Lymphocytes/100 WBC (Bld) 5 % Low 15 - 45 % [facility] Monocytes (Bld) [#/Vol] 0.5 10*3/uL 0.0 - 0.9 10*3/uL [facility] Monocytes Manual 6 [facility] Monocytes/100 WBC (Bld) 6 % 5 - 13 % [facility] Neutrophils (Bld) [#/Vol] 7.9 10*3/uL High 1.8 - 7.0 10*3/uL [facility] Neutrophils Manual 87 [facility] Platelet morphology finding Nom (Bld) Normal [facility] RBC morphology finding Nom (Bld) Normal [facility] Segmented neutrophils/100 WBC (Bld) 87 % High 38 - 82 % [facility] Unclassified Cells % 1 % [facility] Unclassified Cells, Abs. 0.1 10*3/uL [facility] WBC corrected for nucl RBC (Bld) [#/Vol] 9.1 10*3/uL 3.6 - 10.7 10*3/uL [facility] No Panel Informationon 08-03 Interpretation and review of laboratory results Normal [facility] Interpretation and review of laboratory results Abnormal [facility] Performed by: [facility], [address] [place] [address] CLIA ID: [id number] [facility] Interpretation and review of laboratory results Normal [facility] No Panel InformationOrdered By: Christin Mayes on 08-03-2024 Interpretation and review of laboratory results Abnormal [facility] SARS-COV-2, FLU A/B, AND RSV COMBOon 08-03-2024 SARS-CoV-2 (COVID-19) RNA OXANA+probe Ql (Unsp spec) Normal [facility] Comment on above: Performed By: #### L [id number] ####Flavor Room Worker: VELMA VALADEZ ([id number])[facility]ITALSim[facility] BAUTISTA (SWRLAB)[address] [place] [address] SARS-CoV-2, Flu A/B, and RSV Comboon 08-03-2024 Interpretation and review of laboratory results Normal [facility] XR Chest Single viewon 08-03 [...] within the right humerus. No acute fracture. [facility] Ming Fry MD - 08/03/2024 [...] Electronically Signed Date/Time: 08/03/2024 3:33 AM EST [facility] Radiology Study observation (narrative) [facility] XR Chest Single viewOrdered By: Ming Fry on 08-03-2024 [facility] Work Phone: ANES POSTPROC EVALon 025 ANES POSTPROC EVAL HNO ID: [id number] Author: ROBINSON BRUNNER MD Service: ? Author Type: Anesthesiologist Type: Anesthesia Postprocedure Evaluation Filed: 07/31/2024 12:48 Note Text: POST ANESTHESIA EVALUATION NOTE : 1940 Procedure Summary Date: 07/27/24 Room / Location: [address] Anesthesia Start: 1114 Anesthesia Stop: 1322 [...] with this procedure. Documented by Mikhail Nichols APRN.EYELET MAKER 07/27/2024 1:22 PM EST SIGNATURE: Robinson Pizano MD PATIENT NAME: Mel Castillo DATE: July 31, 2024 TIME: 12:46 PM CSN: [id number] [facility] ANES PRE-OPon 07-27-2024 ANES PRE-OP HNO ID: [id number] Author: ROBINSON BRUNNER MD Service: ? Author Type: Anesthesiologist Type: Anesthesia Preprocedure Evaluation Filed: 07/27/2024 11:10 Note Text: ANESTHESIOLOGY DAY OF SURGERY NOTE : 1940 Procedure Information Date/Time: 07/27/24 1110 Procedures: VITRECTOMY 25G [facility] PARS PLANA APPROACH W/ REMOVAL OF PRERETINAL CELLULAR MEMBRANE (Right: Eye) RELEASE OF VITREOUS, CHOROIDAL FLUID, PARS PLANA APPROACH (Right: Eye) Location: [place] [address] / [facility] Surgeons: Savana Lopez MD [...] tiotropium 2.5 (more content not included)... Normal [facility] OPERATIVE NOon 07-27-2024 OPERATIVE NO HNO ID: [id number] Author: SAVANA LOPEZ MD Service: Ophthalmology Author Type: Physician Type: Operative Report Filed: 07/27/2024 13:20 Note Text: [place] [address] [place] [facility] OPERATIVE REPORT LOG ID: [id number] Surgery/Procedure Date: 07/27/2024 Incision/Procedure Start Time: 11:39 AM Incision Close/Procedure End Time: 1:07 PM NAME: Mel Serna [facility] #: [id number] SURGEON(S) AND ASSOCIATE MERCHANDISER(S): Surgeons and Role: Panel 1: * Savana [...] was repaired by the use of max automation control technician forceps and vitreous cutter. This was a [...] times thro (more content not included)... Normal [facility] BSCAN OD (RIGHT EYE)on 07-24 [facility] Right eye Photo documentatio non 07-24-2024 [facility] BSCAN OD (RIGHT EYE)on 07-23 Radiology Study observation (narrative) [facility] Right eye Photo documentatio non 07-23-2024 Radiology Study observation (narrative) [facility] CASE MANAGEMon 07-18-2024 CASE MANAGEM HNO ID: [id number] Author: DOMINIQUE RAMSAY LSW Service: ? Author Type: Medical Dermatologist Type: Care Mgt Progress Note Filed: 07/18/2024 11:21 Note Text: CARE MANAGEMENT DISCHARGE NOTE SERVICE DATE: July 18, 2024 SERVICE TIME: 11:19 AM Admission Date: 07/07/2024 LOS: 11 days Discharge Arrangement Discharge Arrangement: [facility] Arranged Medical Services: Other: See Comment (N/A) Caregiver Assessment Caregiver is ready, willing and able to meet the patient's needs as recommended by the inter-professional team: Yes Name of Caregiver: Rosangela Tomlin Transportation Arrangements Transportation Arrangements: Ambulance Transportation Agency and Phone #:: [facility] [phone] Date of Trip: 07/18/24 Time of Trip: 1100 Type of Service: BLS Non-emergency Handoff Communication: Handoff to: Primary Care Physician Primary Care Physician Name/Phone: Jared Evans Additional Information: Discharge Information Row Name Admission (Current) from 07/07/2024 in [facility] H[facility] [address] [address] Patient d/c ready to [facility] via [facility] with picker packer scheduled for 11am today by Stretcher. Patient aware of plan. Bedside RN aware of plan and provided number to call report for nurse report; call [phone] :) Senior Computer Specialist can transfer you to the 2nd floor. . 7000 and DC instructions sent to [facility] via [facility] and are in DC packet. DC packet in chart to go with patient. SIGNATURE: SHAQUILLE Garay PATIENT NAME: Mel Castillo DATE: July 18, 2024 TIME: 11:19 AM Normal [facility] CBC panel Auto (Bld)on 07-18 Erythrocyte distribution width (RBC) [Ratio] 17.5 % High 11.5-15.0 [facility] Comment on above: Order Comment: Speci men Type: BLOOD SPECIMEN Ordering Facility: [facility] Address: [address] [place] [address] Performed By: #### 5 8410-2 #### [facility] CLIA [id number] [address] [place] [address] [place] Hematocrit (Bld) [Volume fraction] 33.8 % Low 36.0-46.0 [facility] Comment on above: Order Comment: Speci men Type: BLOOD SPECIMEN Ordering Facility: [facility] Address: [address] [place] [address] Performed By: #### 5 8410-2 #### [facility] CLIA [id number] [address] [place] [address] [place] Hemoglobin (Bld) [Mass/Vol] 10.5 g/dL Low 11.5-15.5 [facility] Comment on above: Order Comment: Speci men Type: BLOOD SPECIMEN Ordering Facility: [facility] Address: [address] [place] [address] Performed By: #### 5 8410-2 #### [facility] CLIA [id number] [address] [place] [address] [place] MCH (RBC) [Entitic mass] 26.0 pg Normal 26.0-34.0 [facility] Comment on above: Order Comment: Speci men Type: BLOOD SPECIMEN Ordering Facility: [facility] Address: [address] [place] [address] Performed By: #### 5 8410-2 #### [facility] CLIA [id number] [address] [place] [address] [place] MCHC (RBC) [Mass/Vol] 31.1 g/dL Normal 30.5-36.0 [facility] Comment on above: Order Comment: Speci men Type: BLOOD SPECIMEN Ordering Facility: [facility] Address: [address] [place] [address] Performed By: #### 5 8410-2 #### [facility] CLIA [id number] [address] [place] [address] [place] MCV (RBC) [Entitic vol] 83.7 fL Normal 80.0-100.0 [facility] Comment on above: Order Comment: Speci men Type: BLOOD SPECIMEN Ordering Facility: [facility] Address: [address] [place] [address] Performed By: #### 5 8410-2 #### [facility] CLIA [id number] [address] [place] [address] [place] Nucleated RBC (Bld) [#/Vol] 10*3/uL Normal <0.01 [facility] Comment on above: Order Comment: Speci men Type: BLOOD SPECIMEN Ordering Facility: [facility] Address: [address] [place] [address] Performed By: #### 5 8410-2 #### [facility] CLIA [id number] [address] [place] [address] [place] Platelet mean volume (Bld) [Entitic vol] 9.3 fL Normal 9.0-12.7 [facility] Comment on above: Order Comment: Speci men Type: BLOOD SPECIMEN Ordering Facility: [facility] Address: [address] [place] [address] Performed By: #### 5 8410-2 #### [facility] CLIA [id number] [address] [place] [address] [place] Platelets (Bld) [#/Vol] 386 10*3/uL Normal 150-400 [facility] Comment on above: Order Comment: Speci men Type: BLOOD SPECIMEN Ordering Facility: [facility] Address: [address] [place] [address] Performed By: #### 5 8410-2 #### [facility] CLIA [id number] [address] [place] [address] [place] RBC (Bld) [#/Vol] 4.04 10*6/uL Normal 3.90-5.20 [facility] Comment on above: Order Comment: Speci men Type: BLOOD SPECIMEN Ordering Facility: [facility] Address: [address] [place] [address] Performed By: #### 5 8410-2 #### [facility] CLIA [id number] [address] [place] [address] [place] WBC (Bld) [#/Vol] 10.81 10*3/uL Normal 3.70-11.00 [facility] Comment on above: Order Comment: Speci men Type: BLOOD SPECIMEN Ordering Facility: [facility] Address: [address] [place] [address] Performed By: #### 5 8410-2 #### [facility] CLIA [id number] [address] [place] [address] [place] CNDSon 07-18-2024 CNDS HNO ID: [id number] Author: BRIANA PRITCHARD MD Service: General Internal [...] May 2024 who presents to OSH from [facility] for further evaluation of R acute [...] hemorraghic cho (more content not included)... Normal [facility] Renal function 2000 panelon 07-18-2024 Albumin [Mass/Vol] 3.2 g/dL Low 3.9-4.9 [facility] Comment on above: Order Comment: Speci men Type: BLOOD SPECIMEN Ordering Facility: [facility] Address: [address] [place] [address] Performed By: #### 2 4362-6 #### [facility] CLIA [id number] [address] [place] [address] [place] Anion gap [Moles/Vol] 11 mmol/L Normal 8-15 [facility] Comment on above: Order Comment: Speci men Type: BLOOD SPECIMEN Ordering Facility: [facility] Address: [address] [place] [address] Performed By: #### 2 4362-6 #### [facility] CLIA [id number] [address] [place] [address] [place] Calcium [Mass/Vol] 9.3 mg/dL Normal 8.5-10.2 [facility] Comment on above: Order Comment: Speci men Type: BLOOD SPECIMEN Ordering Facility: [facility] Address: [address] [place] [address] Performed By: #### 2 4362-6 #### [facility] CLIA [id number] [address] [place] [address] [place] Chloride [Moles/Vol] 102 mmol/L Normal 98-107 [facility] Comment on above: Order Comment: Speci men Type: BLOOD SPECIMEN Ordering Facility: [facility] Address: [address] [place] [address] Performed By: #### 2 4362-6 #### [facility] CLIA [id number] [address] [place] [address] [place] CO2 [Moles/Vol] 25 mmol/L Normal 22-30 [facility] Comment on above: Order Comment: Speci men Type: BLOOD SPECIMEN Ordering Facility: [facility] Address: [address] [place] [address] Performed By: #### 2 4362-6 #### [facility] CLIA [id number] [address] [place] [address] [place] Creatinine [Mass/Vol] 0.90 mg/dL Normal 0.58-0.96 [facility] Comment on above: Order Comment: Speci men Type: BLOOD SPECIMEN Ordering Facility: [facility] Address: [address] [place] [address] Performed By: #### 2 4362-6 #### [facility] CLIA [id number] [address] [place] [address] [place] Creatinine and Glomerular filtration rate.predicted panel (S/P/Bld) 63 mL/min/1.73m??? Normal >=60 [facility] Comment on above: Order Comment: Speci men Type: BLOOD SPECIMEN Ordering Facility: [facility] Address: [address] [place] [address] Result Comment: Isa mated Glomerular Filtration Rate [...] GFR. Performed By: #### 2 4362-6 #### [facility] CLIA [id number] [address] [place] [address] [place] Glucose [Mass/Vol] 105 mg/dL High 74-99 [facility] Comment on above: Order Comment: Speci men Type: BLOOD SPECIMEN Ordering Facility: [facility] Address: [address] [place] [address] Result Comment: The [place] Diabetes Association (ADA) provides guidance for cutoff [...] Standards of Medical Care in Diabetes 2016, [place] [employer]. Diabetes Care. 2016.39(Suppl 1). Performed By: #### 2 4362-6 #### [facility] CLIA [id number] [address] [place] [address] [place] Phosphate [Mass/Vol] 3.0 mg/dL Normal 2.7-4.8 [facility] Comment on above: Order Comment: Rhina mason Type: BLOOD SPECIMEN Ordering Facility: [facility] Address: [address] [place] [address] Performed By: #### 2 4362-6 #### [facility] CLIA [id number] [address] [place] [address] [place] Potassium [Moles/Vol] 4.5 mmol/L Normal 3.7-5.1 [facility] Comment on above: Order Comment: Rhina mason Type: BLOOD SPECIMEN Ordering Facility: [facility] Address: [address] [place] [address] Performed By: #### 2 4362-6 #### [facility] CLIA [id number] [address] [place] [address] [place] Sodium [Moles/Vol] 138 mmol/L Normal 136-144 [facility] Comment on above: Order Comment: Speci men Type: BLOOD SPECIMEN Ordering Facility: [facility] Address: [address] [place] [address] Performed By: #### 2 4362-6 #### [facility] CLIA [id number] [address] [place] [address] [place] Urea nitrogen [Mass/Vol] 17 mg/dL Normal 7-21 [facility] Comment on above: Order Comment: Speci men Type: BLOOD SPECIMEN Ordering Facility: [facility] Address: [address] [place] [address] Performed By: #### 2 4362-6 #### [facility] CLIA [id number] [address] [place] [address] [place] CASE MANAGEMon 07-17-2024 CASE MANAGEM HNO ID: [id number] Author: ?, ?, ? Service: ? Author Type: ? Type: Care Mgt Progress Note Filed: 07/17/2024 14:07 Note Text: CARE MANAGEMENT PROGRESS NOTE SERVICE DATE: 07/17/2024 SERVICE TIME: 2:07 PM LOS: 10 days Discharge packet completed and dropped off by transition assistant Tamiko Holley. Packet is missing AVS/DC forms, please reach out to mattress spring encaser with any discharge related questions. SIGNATURE: Tamiko Holley PATIENT NAME: Mel Castillo DATE: July 17, 2024 TIME: 2:07 PM Normal [facility] CASE MANAGEM HNO ID: [id number] Author: DOMINIQUE RAMSAY LSW Service: ? Author Type: Medical Dermatologist Type: Care Mgt Progress Note Filed: 07/17/2024 13:44 Note Text: CARE MANAGEMENT HOLIDAY PLANNING NOTE DISCHARGE OR POSSIBLE DISCHARGE Date/Time: 07/18 at 11am Disposition: Prison Facility - Precert Obtained: Yes Facility Name: [facility] Facility Phone #: Transport: Mode of Transportation: Ambulance Transportation Agency and Phone #: [facility] [phone] . Date of Trip: 07/18/2024 at 11am Other Concerns: [address] [facility] trip# #[id number] to take Pt to [facility]. Pre-cert is approved, a bed is available, and Pt is medically ready. 7000 has been tasked. DC packet has been tasked. DNR form is on green chart. Weekend Charge Loader Pager #: Please see Treatment Team for Care Management Weekend/Holiday coverage. SIGNATURE: SHAQUILLE Garay PATIENT NAME: Mel Castillo DATE: July 17, 2024 TIME: 1:42 PM PAGER/CONTACT #: [facility] CASE MANAGEM HNO ID: [id number] Author: BASILIA CAPPS, ? Service: ? Author Type: ? Type: Care Mgt Progress Note Filed: 07/17/2024 13:14 Note Text: [facility] PRECERT NOTE [employer] MEDICARE PPO approved Prison Facility for [facility] . Precert approved through 07/19/2024. For any additional questions regarding approvals, transport or care management needs, please contact the CM assigned to this patient in the Treatment Team. SIGNATURE: Basilia Capps DATE: July 17, 2024 TIME: 1:14 PM [facility] CASE MANAGEM HNO ID: [id number] Author: DOMINIQUE RAMSAY LSW Service: General Internal Medicine Author Type: Medical Dermatologist Type: Care Mgt Progress Note Filed: 07/17/2024 11:29 Note Text: Attestation signed by Thomas Car DO at 07/17/2024 11:37 AM Thomas Car D.O. PGY-2 Internal Medicine Resident [facility] Click here to page July [...] * Attending Physician: Briana Pritchard MD Normal [facility] CBC panel Auto (Bld)on 07-17 Erythrocyte distribution width (RBC) [Ratio] 17.2 % High 11.5-15.0 [facility] Comment on above: Order Comment: Rhina mason Type: BLOOD SPECIMEN Ordering Facility: [facility] Address: [address] [place] [address] Performed By: #### 2 276-4 #### [facility] CLIA [id number] [address] [place] [address] [place] Hematocrit (Bld) [Volume fraction] 32.3 % Low 36.0-46.0 [facility] Comment on above: Order Comment: Rhina mason Type: BLOOD SPECIMEN Ordering Facility: [facility] Address: [address] [place] [address] Performed By: #### 2 276-4 #### [facility] CLIA [id number] [address] [place] [address] [place] Hemoglobin (Bld) [Mass/Vol] 10.2 g/dL Low 11.5-15.5 [facility] Comment on above: Order Comment: Speci men Type: BLOOD SPECIMEN Ordering Facility: [facility] Address: [address] [place] [address] Performed By: #### 2 276-4 #### [facility] CLIA [id number] [address] [place] [address] [place] [facility] MCH (RBC) [Entitic mass] 26.5 pg Normal 26.0-34.0 [facility] Comment on above: Order Comment: Speci men Type: BLOOD SPECIMEN Ordering Facility: [facility] Address: [address] [place] [address] Performed By: #### 2 276-4 #### [facility] CLIA [id number] [address] [place] [address] [place] MCHC (RBC) [Mass/Vol] 31.6 g/dL Normal 30.5-36.0 [facility] Comment on above: Order Comment: Speci men Type: BLOOD SPECIMEN Ordering Facility: [facility] Address: [address] [place] [address] Performed By: #### 2 276-4 #### [facility] CLIA [id number] [address] [place] [address] [place] MCV (RBC) [Entitic vol] 83.9 fL Normal 80.0-100.0 [facility] Comment on above: Order Comment: Speci men Type: BLOOD SPECIMEN Ordering Facility: [facility] Address: [address] [place] [address] Performed By: #### 2 276-4 #### [facility] CLIA [id number] [address] [place] [address] [place] Nucleated RBC (Bld) [#/Vol] 10*3/uL Normal <0.01 [facility] Comment on above: Order Comment: Speci men Type: BLOOD SPECIMEN Ordering Facility: [facility] Address: [address] [place] [address] Performed By: #### 2 276-4 #### [facility] CLIA [id number] [address] [place] [address] [place] Platelet mean volume (Bld) [Entitic vol] 9.7 fL Normal 9.0-12.7 [facility] Comment on above: Order Comment: Speci men Type: BLOOD SPECIMEN Ordering Facility: [facility] Address: [address] [place] [address] Performed By: #### 2 276-4 #### [facility] CLIA [id number] [address] [place] [address] [place] Platelets (Bld) [#/Vol] 362 10*3/uL Normal 150-400 [facility] Comment on above: Order Comment: Speci men Type: BLOOD SPECIMEN Ordering Facility: [facility] Address: [address] [place] [address] Performed By: #### 2 276-4 #### [facility] CLIA [id number] [address] [place] [address] [place] RBC (Bld) [#/Vol] 3.85 10*6/uL Low 3.90-5.20 [facility] Comment on above: Order Comment: Speci men Type: BLOOD SPECIMEN Ordering Facility: [facility] Address: [address] [place] [address] Performed By: #### 2 276-4 #### [facility] CLIA [id number] [address] [place] [address] [place] WBC (Bld) [#/Vol] 9.41 10*3/uL Normal 3.70-11.00 [facility] Comment on above: Order Comment: Speci men Type: BLOOD SPECIMEN Ordering Facility: [facility] Address: [address] [place] [address] Performed By: #### 2 276-4 #### [facility] CLIA [id number] [address] [place] [address] [place] Renal function 2000 panelon 07-17-2024 Albumin [Mass/Vol] 3.3 g/dL Low 3.9-4.9 [facility] Comment on above: Order Comment: Speci men Type: BLOOD SPECIMENOrdering Facility: [facility] Address: [address] [id number] Performed By: #### 2 4362-6 ####[facility] [id number] [address] [address] [place] Anion gap [Moles/Vol] 10 mmol/L Normal 8-15 [facility] Comment on above: Order Comment: Speci men Type: BLOOD SPECIMENOrdering Facility: [facility] Address: [address] [place], [place] [address] Performed By: #### 2 4362-6 ####[facility] [id number] [place] [address] [place] Calcium [Mass/Vol] 9.0 mg/dL Normal 8.5-10.2 [facility] Comment on above: Order Comment: Speci men Type: BLOOD SPECIMENOrdering Facility: [facility] Address: [address] [place], [place] [address] Performed By: #### 2 4362-6 ####[facility] [id number] [place] [address] [place] Chloride [Moles/Vol] 101 mmol/L Normal 98-107 [facility] Comment on above: Order Comment: Speci men Type: BLOOD SPECIMENOrdering Facility: [facility] Address: [address] [place], [place] [address] Performed By: #### 2 4362-6 ####[facility] [id number] [place] [address] [place] CO2 [Moles/Vol] 25 mmol/L Normal 22-30 [facility] Comment on above: Order Comment: Speci men Type: BLOOD SPECIMENOrdering Facility: [facility] Address: [address] [place], [place] [address] Performed By: #### 2 4362-6 ####[facility] [id number] [place] [address] [place] Creatinine [Mass/Vol] 0.94 mg/dL Normal 0.58-0.96 [facility] Comment on above: Order Comment: Rhina mason Type: BLOOD SPECIMENOrdering Facility: [facility] Address: [address] [place] [address] Performed By: #### 2 4362-6 ####[facility] [id number] [address] [facility] Creatinine and Glomerular filtration rate.predicted panel (S/P/Bld) 60 mL/min/1.73m??? Normal >=60 [facility] Comment on above: Order Comment: Rhina mason Type: BLOOD SPECIMENOrdering Facility: [facility] Address: [address] [place] [address] Result Comment: Isa mated Glomerular Filtration Rate [...] actual GFR. Performed By: #### 2 4362-6 ####[facility] [id number] [place] [address] [place] Glucose [Mass/Vol] 112 mg/dL High 74-99 [facility] Comment on above: Order Comment: Rhina mason Type: BLOOD SPECIMENOrdering Facility: [facility] Address: [address] [place] [address] Result Comment: The [place] Diabetes Association (ADA) provides guidance for cutoff [...] Standards of Medical Care in Diabetes 2016, [place] [employer]. Diabetes Care. 2016.39(Suppl 1). Performed By: #### 2 4362-6 ####[facility] [id number] [address] [address] [place] Phosphate [Mass/Vol] 2.2 mg/dL Low 2.7-4.8 [facility] Comment on above: Order Comment: Speci men Type: BLOOD SPECIMENOrdering Facility: [facility] Address: [address] [place] [address] Performed By: #### 2 4362-6 ####[facility]IA [id number] [place] [address] [place] Potassium [Moles/Vol] 4.6 mmol/L Normal 3.7-5.1 [facility] Comment on above: Order Comment: Speci men Type: BLOOD SPECIMENOrdering Facility: [facility] Address: [address] [place] [address] Performed By: #### 2 4362-6 ####[facility] [id number] [place] [address] [place] Sodium [Moles/Vol] 136 mmol/L Normal 136-144 [facility] Comment on above: Order Comment: Speci men Type: BLOOD SPECIMENOrdering Facility: [facility] Address: [address] [place] [address] Performed By: #### 2 4362-6 ####[facility]IA [id number] [place] [address] [place] Urea nitrogen [Mass/Vol] 20 mg/dL Normal 7-21 [facility] Comment on above: Order Comment: Speci men Type: BLOOD SPECIMENOrdering Facility: [facility] Address: [address] [place] [address] Performed By: #### 2 4362-6 ####[facility] LABRITAIA [id number] [address] [address] [place] THERAPY NTon 07-17-2024 THERAPY NT HNO ID: [id number] Author: SANTIAGO GUZMAN, OT/L Service: Occupational Therapy Author Type: Occupational Therapist Type: Therapy (PT/OT/Speech/Resp) Filed: 07/17/2024 15:14 Note Text: Occupational Therapy Treatment Summary SERVICE DATE: 07/17/2024 SERVICE TIME: 1425 to 1504 ROOM: [place] [address] OT 6 Clicks Score: 15 DISCHARGE RECOMMENDATIONS [...] (ADL), Muscle Weakness (generalized) TREATMENT INTERVENTIONS Self Detention Management (80264) Timed Code Treatment (minutes): 39 Skilled Treatment [...] Sit to Stand, Standing Balance to Improve Am[place] with ADLs/Self-Care, Sitting Balance to Improve [place] with ADLs/Self-Care, Life Roles/Routines/Habits THERAPEUTIC SKILLS USED [...] to Sit Contact Guard Assistance Bed to [facility] (more content not included)... Normal [facility] THERAPY NT HNO ID: [id number] Author: GABRIELLA DALEY, PT Service: Physical Therapy Author Type: Physical Therapist Type: Therapy (PT/OT/Speech/Resp) Filed: 07/17/2024 09:31 Note Text: Physical Therapy Evaluation Summary SERVICE DATE: 07/17/2024 SERVICE TIME: 832 to 911 ROOM: [place] [address] PT 6 Clicks Score: 18 DISCHARGE RECOMMENDATIONS [...] DIAGNOSIS Reduced mobility-other TREATMENT INTERVENTIONS $ Evaluation-Moderate (47295) Billed Units: 1 unit Therapeutic Activity (55920) Treatment Minutes: 10 $ Therapeutic Activity (63348) Billed Units: 1 unit Gait Training (90434) Treatment Minutes: 14 $ Gait Training (50291) Billed Units: 1 unit Evaluation, Therapeutic Activity (27891), Gait Training (98226) Timed Code Treatment (minutes): 24 Skilled Treatment [...] Conservation Training, (more content not included)... Normal [facility] BSCAN OD (RIGHT EYE)on 07-16 [facility] Radiology Study observation (narrative) [facility] CBC panel Auto (Bld)on 07-16 Erythrocyte distribution width (RBC) [Ratio] 17.8 % High 11.5-15.0 [facility] Comment on above: Order Comment: Speci men Type: BLOOD SPECIMEN Ordering Facility: [facility] Address: [address] [place] [address] Performed By: #### 5 8410-2 #### [facility] CLIA [id number] [address] [place] [address] [place] Hematocrit (Bld) [Volume fraction] 33.2 % Low 36.0-46.0 [facility] Comment on above: Order Comment: Speci men Type: BLOOD SPECIMEN Ordering Facility: [facility] Address: [address] [place] [address] Performed By: #### 5 8410-2 #### [facility] CLIA [id number] [address] [place] [address] [place] [place] Hemoglobin (Bld) [Mass/Vol] 10.3 g/dL Low 11.5-15.5 [facility] Comment on above: Order Comment: Speci men Type: BLOOD SPECIMEN Ordering Facility: [facility] Address: [address] [place] [address] Performed By: #### 5 8410-2 #### [facility] CLIA [id number] [address] [place] [address] [place] MCH (RBC) [Entitic mass] 25.6 pg Low 26.0-34.0 [facility] Comment on above: Order Comment: Speci men Type: BLOOD SPECIMEN Ordering Facility: [facility] Address: [address] [place] [address] Performed By: #### 5 8410-2 #### [facility] CLIA [id number] [address] [place] [address] [place] MCHC (RBC) [Mass/Vol] 31.0 g/dL Normal 30.5-36.0 [facility] Comment on above: Order Comment: Speci men Type: BLOOD SPECIMEN Ordering Facility: [facility] Address: [address] [place] [address] Performed By: #### 5 8410-2 #### [facility] CLIA [id number] [address] [place] [address] [place] MCV (RBC) [Entitic vol] 82.4 fL Normal 80.0-100.0 [facility] Comment on above: Order Comment: Speci men Type: BLOOD SPECIMEN Ordering Facility: [facility] Address: [address] [place] [address] Performed By: #### 5 8410-2 #### [facility] CLIA [id number] [address] [place] [address] [place] Nucleated RBC (Bld) [#/Vol] 10*3/uL Normal <0.01 [facility] Comment on above: Order Comment: Speci men Type: BLOOD SPECIMEN Ordering Facility: [facility] Address: [address] [place] [address] Performed By: #### 5 8410-2 #### [facility] CLIA [id number] [address] [place] [address] [place] Platelet mean volume (Bld) [Entitic vol] 9.8 fL Normal 9.0-12.7 [facility] Comment on above: Order Comment: Speci men Type: BLOOD SPECIMEN Ordering Facility: [facility] Address: [address] [place] [address] Performed By: #### 5 8410-2 #### [facility] CLIA [id number] [address] [place] [address] [place] Platelets (Bld) [#/Vol] 348 10*3/uL Normal 150-400 [facility] Comment on above: Order Comment: Speci men Type: BLOOD SPECIMEN Ordering Facility: [facility] Address: [address] [place] [address] Performed By: #### 5 8410-2 #### [facility] CLIA [id number] [address] [place] [address] [place] RBC (Bld) [#/Vol] 4.03 10*6/uL Normal 3.90-5.20 [facility] Comment on above: Order Comment: Speci men Type: BLOOD SPECIMEN Ordering Facility: [facility] Address: [address] [place] [address] Performed By: #### 5 8410-2 #### [facility] CLIA [id number] [address] [place] [address] [place] WBC (Bld) [#/Vol] 11.15 10*3/uL High 3.70-11.00 [facility] Comment on above: Order Comment: Speci men Type: BLOOD SPECIMEN Ordering Facility: [facility] Address: [address] [place] [address] Performed By: #### 5 8410-2 #### [facility] CLIA [id number] [address] [place] [address] [place] FUNDUS PHOTOS OU (BOTH EYES) on 07-16-2024 [facility] Radiology Study observation (narrative) Amarjit Harris Renal function 2000 panelon 07-16-2024 Albumin [Mass/Vol] 3.1 g/dL Low 3.9-4.9 [facility] Comment on above: Order Comment: Speci men Type: BLOOD SPECIMENOrdering Facility: [facility] Address: [address] [place] [address] Performed By: #### 2 4362-6 ####[facility] [id number] [place] [address] [place] Anion gap [Moles/Vol] 12 mmol/L Normal 8-15 [facility] Comment on above: Order Comment: Speci men Type: BLOOD SPECIMENOrdering Facility: [facility] Address: [address] [id number] Performed By: #### 2 4362-6 ####[facility] [id number] [address] [address] [place] Calcium [Mass/Vol] 9.0 mg/dL Normal 8.5-10.2 [facility] Comment on above: Order Comment: Speci men Type: BLOOD SPECIMENOrdering Facility: [facility] Address: [address] [place] [address] Performed By: #### 2 4362-6 ####[facility] [id number] [place] [address] [place] Chloride [Moles/Vol] 103 mmol/L Normal 98-107 [facility] Comment on above: Order Comment: Speci men Type: BLOOD SPECIMENOrdering Facility: [facility] Address: [address] [place], [place] [address] Performed By: #### 2 4362-6 ####[facility] [id number] [place] [address] [place] CO2 [Moles/Vol] 23 mmol/L Normal 22-30 [facility] Comment on above: Order Comment: Speci men Type: BLOOD SPECIMENOrdering Facility: [facility] Address: [address] [place], [place] [address] Performed By: #### 2 4362-6 ####[facility]IA [id number] [place] [id number] [place] Creatinine [Mass/Vol] 1.09 mg/dL High 0.58-0.96 [facility] Comment on above: Order Comment: Speci men Type: BLOOD SPECIMENOrdering Facility: [facility] Address: [address] [place], [place] [address] Performed By: #### 2 4362-6 ####[facility] [id number] [place] [address] [place] Creatinine and Glomerular filtration rate.predicted panel (S/P/Bld) 50 mL/min/1.73m??? Low >=60 [facility] Comment on above: Order Comment: Rhina mason Type: BLOOD SPECIMENOrdering Facility: [facility] Address: [address] [place] [address] Result Comment: Isa mated Glomerular Filtration Rate [...] actual GFR. Performed By: #### 2 4362-6 ####[facility] [id number] [place] [address] [place] Glucose [Mass/Vol] 103 mg/dL High 74-99 [facility] Comment on above: Order Comment: Rhina mason Type: BLOOD SPECIMENOrdering Facility: [facility] Address: [address] [place] [address] Result Comment: The [place] Diabetes [employer] (ADA) provides guidance for cutoff [...] Standards of Medical Care in Diabetes 2016, [place] [employer]. Diabetes Care. 2016.39(Suppl 1). Performed By: #### 2 4362-6 ####[facility] [id number] [place] [address] [place] Phosphate [Mass/Vol] 2.9 mg/dL Normal 2.7-4.8 [facility] Comment on above: Order Comment: Speci men Type: BLOOD SPECIMENOrdering Facility: [facility] Address: [address] [place] [address] Performed By: #### 2 4362-6 ####[facility]IA [id number] [place] [address] [place] Potassium [Moles/Vol] 4.5 mmol/L Normal 3.7-5.1 [facility] Comment on above: Order Comment: Speci men Type: BLOOD SPECIMENOrdering Facility: [facility] Address: [address] [place] [address] Performed By: #### 2 4362-6 ####[facility]IA [id number] [place] [address] [place] Sodium [Moles/Vol] 138 mmol/L Normal 136-144 [facility] Comment on above: Order Comment: Speci men Type: BLOOD SPECIMENOrdering Facility: [facility] Address: [address] [place] [address] Performed By: #### 2 4362-6 ####[facility] [id number] [place] [address] [place] Urea nitrogen [Mass/Vol] 22 mg/dL High 7-21 [facility] Comment on above: Order Comment: Speci men Type: BLOOD SPECIMENOrdering Facility: [facility] Address: [address] [place] [address] Performed By: #### 2 4362-6 ####[facility] LABIA [id number] [place] [address] [place] THERAPY NTon 07-16-2024 THERAPY NT HNO ID: [id number] Author: SANTIAGO GUZMAN OT/L Service: Occupational Therapy Author Type: Occupational Therapist Type: Therapy (PT/OT/Speech/Resp) Filed: 07/16/2024 15:10 Note Text: Occupational Therapy Treatment Summary SERVICE DATE: 07/16/2024 SERVICE TIME: 1415 to 1500 ROOM: H060[facility] OT 6 Clicks Score: 15 DISCHARGE [...] (ADL), Muscle Weakness (generalized) TREATMENT INTERVENTIONS Self Detention Management (98902) Timed Code Treatment (minutes): 45 Skilled Treatment [...] Sit to Stand, Standing Balance to Improve Amelia with ADLs/Self-Care, Sitting Balance to Improve [place] with ADLs/Self-Care, Life Roles/Routines/Habits THERAPEUTIC SKILLS USED [...] Assistance Sit (more content not included)... Normal [facility] CBC panel Auto (Bld)on 07-15 Erythrocyte distribution width (RBC) [Ratio] 17.8 % High 11.5-15.0 [facility] Comment on above: Order Comment: Speci men Type: BLOOD SPECIMEN Ordering Facility: [facility] Address: [address] [place] [address] Performed By: #### 2 4362-6 #### [facility] CLIA [id number] [address] [place] [address] [place] Hematocrit (Bld) [Volume fraction] 34.4 % Low 36.0-46.0 [facility] Comment on above: Order Comment: Speci men Type: BLOOD SPECIMEN Ordering Facility: [facility] Address: [address] [place] [address] Performed By: #### 2 4362-6 #### [facility] CLIA [id number] [address] [place] [address] [place] Hemoglobin (Bld) [Mass/Vol] 10.7 g/dL Low 11.5-15.5 [facility] Comment on above: Order Comment: Speci men Type: BLOOD SPECIMEN Ordering Facility: [facility] Address: [address] [place] [address] Performed By: #### 2 4362-6 #### [facility] CLIA [id number] [address] [place] [address] [place] MCH (RBC) [Entitic mass] 26.2 pg Normal 26.0-34.0 [facility] Comment on above: Order Comment: Speci men Type: BLOOD SPECIMEN Ordering Facility: [facility] Address: [address] [place] [address] Performed By: #### 2 4362-6 #### [facility] CLIA [id number] [address] [place] [address] [place] MCHC (RBC) [Mass/Vol] 31.1 g/dL Normal 30.5-36.0 [facility] Comment on above: Order Comment: Speci men Type: BLOOD SPECIMEN Ordering Facility: [facility] Address: [address] [place] [address] Performed By: #### 2 4362-6 #### [facility] CLIA [id number] [address] [place] [address] [place] MCV (RBC) [Entitic vol] 84.1 fL Normal 80.0-100.0 [facility] Comment on above: Order Comment: Speci men Type: BLOOD SPECIMEN Ordering Facility: [facility] Address: [address] [place] [address] Performed By: #### 2 4362-6 #### [facility] CLIA [id number] [address] [place] [address] [place] Nucleated RBC (Bld) [#/Vol] 10*3/uL Normal <0.01 [facility] Comment on above: Order Comment: Speci men Type: BLOOD SPECIMEN Ordering Facility: [facility] Address: [address] [place] [address] Performed By: #### 2 4362-6 #### [facility] CLIA [id number] [address] [place] [address] [place] Platelet mean volume (Bld) [Entitic vol] 10.1 fL Normal 9.0-12.7 [facility] Comment on above: Order Comment: Speci men Type: BLOOD SPECIMEN Ordering Facility: [facility] Address: [address] [place] [address] Performed By: #### 2 4362-6 #### [facility] CLIA [id number] [address] [place] [address] [place] Platelets (Bld) [#/Vol] 386 10*3/uL Normal 150-400 [facility] Comment on above: Order Comment: Speci men Type: BLOOD SPECIMEN Ordering Facility: [facility] Address: [address] [place] [address] Performed By: #### 2 4362-6 #### [facility] CLIA [id number] [address] [place] [address] [place] RBC (Bld) [#/Vol] 4.09 10*6/uL Normal 3.90-5.20 [facility] Comment on above: Order Comment: Speci men Type: BLOOD SPECIMEN Ordering Facility: [facility] Address: [address] [place] [address] Performed By: #### 2 4362-6 #### [facility] CLIA [id number] [address] [place] [address] [place] WBC (Bld) [#/Vol] 10.20 10*3/uL Normal 3.70-11.00 [facility] Comment on above: Order Comment: Speci men Type: BLOOD SPECIMEN Ordering Facility: [facility] Address: [address] [place] [address] Performed By: #### 2 4362-6 #### [facility] CLIA [id number] [address] [place] [address] [place] Renal function 2000 panelon 07-15-2024 Albumin [Mass/Vol] 3.5 g/dL Low 3.9-4.9 [facility] Comment on above: Order Comment: Speci men Type: BLOOD SPECIMENOrdering Facility: [facility] Address: [address] [place] [address] Performed By: #### 2 4362-6 ####[facility] [id number] [place] [address] [place] Anion gap [Moles/Vol] 12 mmol/L Normal 8-15 [facility] Comment on above: Order Comment: Speci men Type: BLOOD SPECIMENOrdering Facility: [facility] Address: [address] [place] [address] Performed By: #### 2 4362-6 ####[facility] [id number] [place] [address] [place] Calcium [Mass/Vol] 9.1 mg/dL Normal 8.5-10.2 [facility] Comment on above: Order Comment: Speci men Type: BLOOD SPECIMENOrdering Facility: [facility] Address: [address] [place] [address] Performed By: #### 2 4362-6 ####[facility] [id number] [place] [address] [place] Chloride [Moles/Vol] 101 mmol/L Normal 98-107 [facility] Comment on above: Order Comment: Speci men Type: BLOOD SPECIMENOrdering Facility: [facility] Address: [address] [place] [address] Performed By: #### 2 4362-6 ####[facility] [id number] [place] [address] [place] CO2 [Moles/Vol] 24 mmol/L Normal 22-30 [facility] Comment on above: Order Comment: Speci men Type: BLOOD SPECIMENOrdering Facility: [facility] Address: [address] [place] [address] Performed By: #### 2 4362-6 ####[facility]IA [id number] [place] [address] [place] Creatinine [Mass/Vol] 0.96 mg/dL Normal 0.58-0.96 [facility] Comment on above: Order Comment: Speci men Type: BLOOD SPECIMENOrdering Facility: [facility] Address: [address] [place] [address] Performed By: #### 2 4362-6 ####[facility] [id number] [place] [address] [place] Creatinine and Glomerular filtration rate.predicted panel (S/P/Bld) 58 mL/min/1.73m??? Low >=60 [facility] Comment on above: Order Comment: Speci men Type: BLOOD SPECIMENOrdering Facility: [facility] Address: [address] [place] [address] Result Comment: Isa mated Glomerular Filtration Rate [...] actual GFR. Performed By: #### 2 4362-6 ####[facility] [id number] [address] [address] [place] Glucose [Mass/Vol] 93 mg/dL Normal 74-99 [facility] Comment on above: Order Comment: Rhina mason Type: BLOOD SPECIMENOrdering Facility: [facility] Address: [address] [id number] Result Comment: The [place] Diabetes Association (ADA) provides guidance for cutoff [...] Standards of Medical Care in Diabetes 2016, [place] [employer]. Diabetes Care. 2016.39(Suppl 1). Performed By: #### 2 4362-6 ####[facility] [id number] [place] [id number] [place] Phosphate [Mass/Vol] 3.1 mg/dL Normal 2.7-4.8 [facility] Comment on above: Order Comment: Rhina mason Type: BLOOD SPECIMENOrdering Facility: [facility] Address: [address] [place] [address] Performed By: #### 2 4362-6 ####[facility]IA [id number] [address] [address] [place] Potassium [Moles/Vol] 4.3 mmol/L Normal 3.7-5.1 [facility] Comment on above: Order Comment: Speci men Type: BLOOD SPECIMENOrdering Facility: [facility] Address: [address] [place] [address] Performed By: #### 2 4362-6 ####[facility]CLIA [id number] [place] [address] [place] Sodium [Moles/Vol] 137 mmol/L Normal 136-144 [facility] Comment on above: Order Comment: Speci men Type: BLOOD SPECIMENOrdering Facility: [facility] Address: [address] [place] [address] Performed By: #### 2 4362-6 ####[facility]IA [id number] [place] [address] [place] Urea nitrogen [Mass/Vol] 19 mg/dL Normal 7-21 [facility] Comment on above: Order Comment: Speci men Type: BLOOD SPECIMENOrdering Facility: [facility] Address: [address] [place] [address] Performed By: #### 2 4362-6 ####[facility]CLIA [id number] [place] [address] [place] CBC panel Auto (Bld)on 07-14 Erythrocyte distribution width (RBC) [Ratio] 17.9 % High 11.5-15.0 [facility] Comment on above: Order Comment: Speci men Type: BLOOD SPECIMEN Ordering Facility: [facility] Address: [address] [place] [address] Performed By: #### 2 4362-6 #### [facility] CLIA [id number] [address] [place] [address] [place] Hematocrit (Bld) [Volume fraction] 33.8 % Low 36.0-46.0 [facility] Comment on above: Order Comment: Speci men Type: BLOOD SPECIMEN Ordering Facility: [facility] Address: [address] [place] [address] Performed By: #### 2 4362-6 #### [facility] CLIA [id number] [address] [place] [address] [place] Hemoglobin (Bld) [Mass/Vol] 10.7 g/dL Low 11.5-15.5 [facility] Comment on above: Order Comment: Speci men Type: BLOOD SPECIMEN Ordering Facility: [facility] Address: [address] [place] [address] Performed By: #### 2 4362-6 #### [facility] CLIA [id number] [address] [place] [address] [place] MCH (RBC) [Entitic mass] 26.4 pg Normal 26.0-34.0 [facility] Comment on above: Order Comment: Speci men Type: BLOOD SPECIMEN Ordering Facility: [facility] Address: [address] [place] [address] Performed By: #### 2 4362-6 #### [facility] CLIA [id number] [address] [place] [address] [place] MCHC (RBC) [Mass/Vol] 31.7 g/dL Normal 30.5-36.0 [facility] Comment on above: Order Comment: Speci men Type: BLOOD SPECIMEN [facility]ing Facility: [facility] Address: [address] [place] [address] Performed By: #### 2 4362-6 #### [facility] CLIA [id number] [address] [place] [address] [place] MCV (RBC) [Entitic vol] 83.5 fL Normal 80.0-100.0 [facility] Comment on above: Order Comment: Speci men Type: BLOOD SPECIMEN [facility]: [facility] Address: [address] [place] [address] Performed By: #### 2 4362-6 #### [facility] CLIA [id number] [address] [id number] [address] [place] Nucleated RBC (Bld) [#/Vol] 10*3/uL Normal <0.01 [facility] Comment on above: Order Comment: Speci men Type: BLOOD SPECIMEN [facility]ing Facility: [facility] Address: [address] [place] [address] Performed By: #### 2 4362-6 #### [facility] CLIA [id number] [address] [place] [address] [place] Platelet mean volume (Bld) [Entitic vol] 10.3 fL Normal 9.0-12.7 [facility] Comment on above: Order Comment: Speci men Type: BLOOD SPECIMEN Ordering Facility: [facility] Address: [address] [place] [address] Performed By: #### 2 4362-6 #### [facility] CLIA [id number] [address] [place] [address] [place] Platelets (Bld) [#/Vol] 345 10*3/uL Normal 150-400 [facility] Comment on above: Order Comment: Speci men Type: BLOOD SPECIMEN Ordering Facility: [facility] Address: [address] [place] [address] Performed By: #### 2 4362-6 #### [facility] CLIA [id number] [address] [place] [address] [place] RBC (Bld) [#/Vol] 4.05 10*6/uL Normal 3.90-5.20 [facility] Comment on above: Order Comment: Speci men Type: BLOOD SPECIMEN Ordering Facility: [facility] Address: [address] [place] [address] Performed By: #### 2 4362-6 #### [facility] CLIA [id number] [address] [place] [address] [place] WBC (Bld) [#/Vol] 11.07 10*3/uL High 3.70-11.00 [facility] Comment on above: Order Comment: Speci men Type: BLOOD SPECIMEN Ordering Facility: [facility] Address: [address] [place], [place] [address] Performed By: #### 2 4362-6 #### [facility] CLIA [id number] [address] [place] [address] [place] Renal function 2000 panelon 07-14-2024 Albumin [Mass/Vol] 3.5 g/dL Low 3.9-4.9 [facility] Comment on above: Order Comment: Speci men Type: BLOOD SPECIMEN Ordering Facility: [facility] Address: [address] [place] [address] Performed By: #### 2 4362-6 #### [facility] CLIA [id number] [address] [place] [address] [place] Anion gap [Moles/Vol] 14 mmol/L Normal 8-15 [facility] [facility] Comment on above: Order Comment: Speci men Type: BLOOD SPECIMEN Ordering Facility: [facility] Address: [address] [place] [address] Performed By: #### 2 4362-6 #### [facility] CLIA [id number] [address] [place] [address] [place] Calcium [Mass/Vol] 9.1 mg/dL Normal 8.5-10.2 [facility] Comment on above: Order Comment: Speci men Type: BLOOD SPECIMEN Ordering Facility: [facility] Address: [address] [place], [place] [address] Performed By: #### 2 4362-6 #### [facility] CLIA [id number] [address] [place] [address] [place] Chloride [Moles/Vol] 98 mmol/L Normal 98-107 [facility] Comment on above: Order Comment: Speci men Type: BLOOD SPECIMEN Ordering Facility: [facility] Address: [address] [place] [address] Performed By: #### 2 4362-6 #### [facility] CLIA [id number] [address] [place] [address] [place] CO2 [Moles/Vol] 22 mmol/L Normal 22-30 [facility] Comment on above: Order Comment: Speci men Type: BLOOD SPECIMEN Ordering Facility: [facility] Address: [address] [place] [address] Performed By: #### 2 4362-6 #### [facility] CLIA [id number] [address] [place] [address] [place] Creatinine [Mass/Vol] 1.01 mg/dL High 0.58-0.96 [facility] Comment on above: Order Comment: Speci men Type: BLOOD SPECIMEN Ordering Facility: [facility] Address: [address] [place] [address] Performed By: #### 2 4362-6 #### [facility] CLIA [id number] [address] [place] [address] [place] Creatinine and Glomerular filtration rate.predicted panel (S/P/Bld) 55 mL/min/1.73m??? Low >=60 [facility] Comment on above: Order Comment: Speci men Type: BLOOD SPECIMEN Ordering Facility: [facility] Address: [address] [place] [address] Result Comment: Isa mated Glomerular Filtration Rate [...] GFR. Performed By: #### 2 4362-6 #### [facility] CLIA [id number] [address] [place] [address] [place] Glucose [Mass/Vol] 131 mg/dL High 74-99 [facility] Comment on above: Order Comment: Speci men Type: BLOOD SPECIMEN Ordering Facility: [facility] Address: [address] [place], [place] [address] Result Comment: The [place] Diabetes Association (ADA) provides guidance for cutoff [...] Standards of Medical Care in Diabetes 2016, [place] [employer]. Diabetes Care. 2016.39(Suppl 1). Performed By: #### 2 4362-6 #### [facility] CLIA [id number] [address] [place] [address] [place] Phosphate [Mass/Vol] 3.5 mg/dL Normal 2.7-4.8 [facility] Comment on above: Order Comment: Speci men Type: BLOOD SPECIMEN Ordering Facility: [facility] Address: [address] [place] [address] Performed By: #### 2 4362-6 #### [facility] CLIA [id number] [address] [place] [address] [place] Potassium [Moles/Vol] 4.1 mmol/L Normal 3.7-5.1 [facility] Comment on above: Order Comment: Speci men Type: BLOOD SPECIMEN Ordering Facility: [facility] Address: [address] [place] [address] Performed By: #### 2 4362-6 #### [facility] CLIA [id number] [address] [place] [address] [place] Sodium [Moles/Vol] 134 mmol/L Low 136-144 [facility] Comment on above: Order Comment: Speci men Type: BLOOD SPECIMEN Ordering Facility: [facility] Address: [address] [place], [place] [address] Performed By: #### 2 4362-6 #### [facility] CLIA [id number] [address] [place] [address] [place] Urea nitrogen [Mass/Vol] 19 mg/dL Normal 7-21 [facility] Comment on above: Order Comment: Speci men Type: BLOOD SPECIMEN Ordering Facility: [facility] Address: [address] [place] [address] Performed By: #### 2 4362-6 #### [facility] CLIA [id number] [address] [place] [address] [place] ANES POSTPROC EVALon 024 ANES POSTPROC EVAL HNO ID: [id number] Author: SIERRA FALK MD Service: ? Author Type: Anesthesiologist Type: Anesthesia Postprocedure Evaluation Filed: 07/13/2024 15:57 Note Text: POST ANESTHESIA EVALUATION NOTE : 1940 Procedure Summary Date: 07/13/24 Room / Location: [address] Anesthesia Start: 1222 Anesthesia Stop: 1337 [...] July 13, 2024 TIME: 3:57 PM CSN: [id number] Normal [facility] ANES PRE-OPon 07-13-2024 ANES PRE-OP HNO ID: [id number] Author: SIERRA FALK MD Service: ? Author Type: Anesthesiologist Type: Anesthesia Preprocedure Evaluation Filed: 07/13/2024 09:44 Note Text: ANESTHESIOLOGY DAY OF SURGERY NOTE : 1940 Procedure Information Date/Time: 07/13/241403 Procedure: ASPIRATION VITREOUS, CHOROIDAL FLUID, PARS PLANA APPROACH (Right: Eye) Location: [place] [address] / [facility] Surgeons: Savana Lopez MD Estimated body mass [...] 0.5 tablets by mouth every 12 hours. yzwocclghcd-epkyvxxrh-a ilanter (TRELEGY ELLIPTA) 100-62.5-25 mcg inhalation powder Inhale 1 Puff as instructed once daily. acetaminophen (TYLENOL) 325 mg tablet Take 2 tablets by mouth every 6 hours as needed for pain. ascorbic acid (more content not included)... Normal [facility] CASE MANAGEM HNO ID: [id number] Author: REBECA BELLE LSW Service: ? Author Type: Medical Dermatologist Type: Care Mgt Progress Note Filed: 07/13/2024 16:25 Note Text: CARE MANAGEMENT WEEKEND PLANNING NOTE NO WEEKEND DISCHARGE Disposition: [facility] Anticipated Discharge Date: TBD CM followed up with pt's daughter for SNF choices. Pt is currently in the OR- unable to send referrals in careport or complete edit note side bar. 1)[facility] 2)[facility] 3)[facility] 4)[facility] 5)[facility] Will need accepting SNF and precert prior to dc. UPDATE 4:24pm: Referrals sent; awaiting response. Weekend Charge Loader Pager #: Please see Treatment Team for Care Management Weekend/Holiday coverage. SIGNATURE: SHAQUILLE Nuñez PATIENT NAME: Mel Castillo DATE: July 13, 2024 TIME: 3:09 PM PAGER/CONTACT #: [phone] Normal [facility] CBC panel Auto (Bld)on 07-13 Erythrocyte distribution width (RBC) [Ratio] 17.6 % High 11.5-15.0 [facility] Comment on above: Order Comment: Speci men Type: BLOOD SPECIMENOrdering Facility: [facility] Address: [address] [place] [address] Performed By: #### 5 8410-2 ####[facility] [id number] [place] [address] [place] Hematocrit (Bld) [Volume fraction] 34.5 % Low 36.0-46.0 [facility] Comment on above: Order Comment: Speci men Type: BLOOD SPECIMENOrdering Facility: [facility] Address: [address] [place] [address] Performed By: #### 5 8410-2 ####[facility] [id number] [place] [address] [place] Hemoglobin (Bld) [Mass/Vol] 10.8 g/dL Low 11.5-15.5 [facility] Comment on above: Order Comment: Speci men Type: BLOOD SPECIMENOrdering Facility: [facility] Address: [address] [place] [address] Performed By: #### 5 8410-2 ####[facility] [id number] [place] [address] [place] MCH (RBC) [Entitic mass] 26.1 pg Normal 26.0-34.0 [facility] Comment on above: Order Comment: Speci men Type: BLOOD SPECIMENOrdering Facility: [facility] Address: [address] [place] [address] Performed By: #### 5 8410-2 ####[facility] [id number] [place] [address] [place] MCHC (RBC) [Mass/Vol] 31.3 g/dL Normal 30.5-36.0 [facility] Comment on above: Order Comment: Speci men Type: BLOOD SPECIMENOrdering Facility: [facility] Address: [address] [place] [address] Performed By: #### 5 8410-2 ####[facility]IA [id number] [place] [address] [place] MCV (RBC) [Entitic vol] 83.3 fL Normal 80.0-100.0 [facility] Comment on above: Order Comment: Speci men Type: BLOOD SPECIMENOrdering Facility: [facility] Address: [address] [place] [address] Performed By: #### 5 8410-2 ####[facility]IA [id number] [place] [address] [place] Nucleated RBC (Bld) [#/Vol] 10*3/uL Normal <0.01 [facility] Comment on above: Order Comment: Speci men Type: BLOOD SPECIMENOrdering Facility: [facility] Address: [address] [place] [address] Performed By: #### 5 8410-2 ####[facility]IA [id number] [place] [address] [place] Platelet mean volume (Bld) [Entitic vol] 9.7 fL Normal 9.0-12.7 [facility] Comment on above: Order Comment: Speci men Type: BLOOD SPECIMENOrdering Facility: [facility] Address: [address] [place] [address] Performed By: #### 5 8410-2 ####[facility]IA [id number] [place] [address] [place] Platelets (Bld) [#/Vol] 334 10*3/uL Normal 150-400 [facility] Comment on above: Order Comment: Speci men Type: BLOOD SPECIMENOrdering Facility: [facility] Address: [address] [place] [address] Performed By: #### 5 8410-2 ####[facility]IA [id number] [place] [address] [place] RBC (Bld) [#/Vol] 4.14 10*6/uL Normal 3.90-5.20 [facility] Comment on above: Order Comment: Speci men Type: BLOOD SPECIMENOrdering Facility: [facility] Address: [address] [place] [address] Performed By: #### 5 8410-2 ####[facility]IA [id number] [place] [address] [place] WBC (Bld) [#/Vol] 10.74 10*3/uL Normal 3.70-11.00 [facility] Comment on above: Order Comment: Speci men Type: BLOOD SPECIMENOrdering Facility: [facility] Address: [address] [place] [address] Performed By: #### 5 8410-2 ####[facility]IA [id number] [place] [address] [place] ECHO WITH AGITATED SALINE CO NTRASTon 07-13-2024 ECHO WITH AGITATED SALINE CONTRAST Echocardiography Report: Transthoracic Echo [facility] Bedside Date of service: 07/13/2024 3:54:27 PM [facility] Ordering physician: FELICIA LEVY Indication: Limited KYLE [...] * * Final * * * [facility] Image : [id number] ISUID Normal [facility] NUTRITIONon 07-13-2024 NUTRITION HNO ID: [id number] Author: PAWAN PRESLEY DTR Service: Nutrition Therapy Author Type: Vp Biology Type: Nutrition Filed: 07/13/2024 11:50 Note Text: NUTRITION THERAPY DIRECTOR OF GLOBAL MARKETING NOTE SERVICE DATE: 07/13/2024 SERVICE TIME: 1045 Visit Type: Length of Stay Evaluation Goals Met: Not Met The patient was not available at time of visit. Per [facility], she has not met nutritional goals. Will start nutritional supplement and follow up for intake improvements and tolerance of nutritional supplements. Plan of Care: Supplements: Ensure Plus High Protein Follow-Up: [facility] Reassessment Nursing Admission Assessment Malnutrition [...] supplements Allergies: No food allergies noted per [facility]. MNT Billing: $ Routine Care : 1-15 minutes SIGNATURE: Pawan Presley DTR PATIENT NAME: Mel Castillo DATE: July 13, 2024 TIME: 11:49 AM Normal [facility] OPERATIVE NOon 07-13-2024 OPERATIVE NO HNO ID: [id number] Author: SAVANA LOPEZ MD Service: Ophthalmology Author Type: Physician Type: Operative Report Filed: 07/13/2024 13:32 Note Text: [place] [address] [place] [facility] OPERATIVE REPORT LOG ID: [id number] Surgery/Procedure Date: 07/13/2024 Incision/Procedure Start Time: 12:43 PM Incision Close/Procedure End Time: 1:32 PM NAME: Mel Pop [facility] #: [id number] SURGEON(S) AND ASSOCIATE MERCHANDISER(S): Surgeons and Role: * Savana Lopez MD [...] Inflammatory Diseases [facility] Normal [facility] Renal function 2000 panelon 07-13-2024 Albumin [Mass/Vol] 3.5 g/dL Low 3.9-4.9 [facility] Comment on above: Order Comment: Rhina mason Type: BLOOD SPECIMENOrdering Facility: [facility] Address: [address] [place] [address] Performed By: #### 2 4362-6 ####[facility]CLIA [id number] [address] [address] [place] Anion gap [Moles/Vol] 10 mmol/L Normal 8-15 [facility] Comment on above: Order Comment: Rhina mason Type: BLOOD SPECIMENOrdering Facility: [facility] Address: [address] [place] [address] Performed By: #### 2 4362-6 ####[facility]CLIA [id number] [address] [address] [place] Calcium [Mass/Vol] 9.3 mg/dL Normal 8.5-10.2 [facility] Comment on above: Order Comment: Speci men Type: BLOOD SPECIMENOrdering Facility: [facility] Address: [address] [place], [place] [address] Performed By: #### 2 4362-6 ####[facility]CLIA [id number] [place] [address] [place] Chloride [Moles/Vol] 100 mmol/L Normal 98-107 [facility] Comment on above: Order Comment: Speci men Type: BLOOD SPECIMENOrdering Facility: [facility] Address: [address] [place] [address] Performed By: #### 2 4362-6 ####[facility]CLIA [id number] [place] [address] [place] CO2 [Moles/Vol] 27 mmol/L Normal 22-30 [facility] Comment on above: Order Comment: Speci men Type: BLOOD SPECIMENOrdering Facility: [facility] Address: [address] [place], [place] [address] Performed By: #### 2 4362-6 ####[facility] LABCLIA [id number] [place] [address] [place] Creatinine [Mass/Vol] 0.92 mg/dL Normal 0.58-0.96 [facility] Comment on above: Order Comment: Speci men Type: BLOOD SPECIMENOrdering Facility: [facility] Address: [address] [place], [place] [address] Performed By: #### 2 4362-6 ####[facility]CLIA [id number] [place] [address] [place] Creatinine and Glomerular filtration rate.predicted panel (S/P/Bld) 62 mL/min/1.73m??? Normal >=60 [facility] Comment on above: Order Comment: Rhina mason Type: BLOOD SPECIMENOrdering Facility: [facility] Address: [address] [place] [address] Result Comment: Isa mated Glomerular Filtration Rate [...] actual GFR. Performed By: #### 2 4362-6 ####[facility]IA [id number] [place] [address] [place] Glucose [Mass/Vol] 103 mg/dL High 74-99 [facility] Comment on above: Order Comment: Rhina mason Type: BLOOD SPECIMENOrdering Facility: [facility] Address: [address] [place] [address] Result Comment: The [place] Diabetes Association (ADA) provides guidance for cutoff [...] Standards of Medical Care in Diabetes 2016, [place] [employer]. Diabetes Care. 2016.39(Suppl 1). Performed By: #### 2 4362-6 ####[facility] LABIA [id number] [place] [address] [place] Phosphate [Mass/Vol] 3.5 mg/dL Normal 2.7-4.8 [facility] Comment on above: Order Comment: Speci men Type: BLOOD SPECIMENOrdering Facility: [facility] Address: [address] [place], [place] [address] Performed By: #### 2 4362-6 ####[facility] LABCLIA [id number] [address] [address] [place] Potassium [Moles/Vol] 4.2 mmol/L Normal 3.7-5.1 [facility] Comment on above: Order Comment: Speci men Type: BLOOD SPECIMENOrdering Facility: [facility] Address: [address] [place] [address] Performed By: #### 2 4362-6 ####[facility] LABCLIA [id number] [place] [address] [place] Sodium [Moles/Vol] 137 mmol/L Normal 136-144 [facility] Comment on above: Order Comment: Speci men Type: BLOOD SPECIMENOrdering Facility: [facility] Address: [address] [place] [address] Performed By: #### 2 4362-6 ####[facility]CLIA [id number] [place] [address] [place] Urea nitrogen [Mass/Vol] 12 mg/dL Normal 7-21 [facility] Comment on above: Order Comment: Speci men Type: BLOOD SPECIMENOrdering Facility: [facility] Address: [address] [place], [place] [address] Performed By: #### 2 4362-6 ####[facility] LABCLIA [id number] [place] [address] [place] BSCAN OD (RIGHT EYE)on 07-12 [facility] Radiology Study observation (narrative) [facility] CBC panel Auto (Bld)on 07-12 Erythrocyte distribution width (RBC) [Ratio] 17.8 % High 11.5-15.0 [facility] Comment on above: Order Comment: Speci men Type: BLOOD SPECIMENOrdering Facility: [facility] Address: [address] [place] [address] Performed By: #### 5 8410-2 ####[facility]CLIA [id number] [place] [address] [place] Hematocrit (Bld) [Volume fraction] 34.7 % Low 36.0-46.0 [facility] Comment on above: Order Comment: Speci men Type: BLOOD SPECIMENOrdering Facility: [facility] Address: [address] [place] [address] Performed By: #### 5 8410-2 ####[facility] LABCLIA [id number] [place] [address] [place] Hemoglobin (Bld) [Mass/Vol] 10.6 g/dL Low 11.5-15.5 [facility] Comment on above: Order Comment: Speci men Type: BLOOD SPECIMENOrdering Facility: [facility] Address: [address] [place] [address] Performed By: #### 5 8410-2 ####[facility] LABCLIA [id number] [place] [address] [place] MCH (RBC) [Entitic mass] 26.4 pg Normal 26.0-34.0 [facility] Comment on above: Order Comment: Speci men Type: BLOOD SPECIMENOrdering Facility: [facility] Address: [address] [place] [address] Performed By: #### 5 8410-2 ####[facility] LABCLIA [id number] [place] [address] [place] MCHC (RBC) [Mass/Vol] 30.5 g/dL Normal 30.5-36.0 [facility] Comment on above: Order Comment: Speci men Type: BLOOD SPECIMENOrdering Facility: [facility] Address: [address] [place] [address] Performed By: #### 5 8410-2 ####[facility] LABCLIA [id number] [place] [address] [place] MCV (RBC) [Entitic vol] 86.3 fL Normal 80.0-100.0 [facility] Comment on above: Order Comment: Speci men Type: BLOOD SPECIMENOrdering Facility: [facility] Address: [address] [place] [address] Performed By: #### 5 8410-2 ####[facility] LABIA [id number] [place] [address] [place] Nucleated RBC (Bld) [#/Vol] 10*3/uL Normal <0.01 [facility] Comment on above: Order Comment: Speci men Type: BLOOD SPECIMENOrdering Facility: [facility] Address: [address] [place] [address] Performed By: #### 5 8410-2 ####[facility] LABIA [id number] [place] [address] [place] Platelet mean volume (Bld) [Entitic vol] 9.9 fL Normal 9.0-12.7 [facility] Comment on above: Order Comment: Speci men Type: BLOOD SPECIMENOrdering Facility: [facility] Address: [address] [place] [address] Performed By: #### 5 8410-2 ####[facility] LABIA [id number] [place] [address] [place] Platelets (Bld) [#/Vol] 301 10*3/uL Normal 150-400 [facility] Comment on above: Order Comment: Speci men Type: BLOOD SPECIMENOrdering Facility: [facility] Address: [address] [place] [address] Performed By: #### 5 8410-2 ####[facility] LABIA [id number] [place] [address] [place] RBC (Bld) [#/Vol] 4.02 10*6/uL Normal 3.90-5.20 [facility] Comment on above: Order Comment: Speci men Type: BLOOD SPECIMENOrdering Facility: [facility] Address: [address] [place] [address] Performed By: #### 5 8410-2 ####[facility] LABCLIA [id number] [place] [address] [place] WBC (Bld) [#/Vol] 10.07 10*3/uL Normal 3.70-11.00 [facility] Comment on above: Order Comment: Speci men Type: BLOOD SPECIMENOrdering Facility: [facility] Address: [address] [place] [address] Performed By: #### 5 8410-2 ####[facility] LABCLIA [id number] [place] [address] [place] PT EDon 07-12-2024 PT ED HNO ID: [id number] Author: GISSELL POPE RPh Service: Pharmacy Author [...] inpatient anticoagulant education. Gissell Pope RPh Normal [facility] Renal function 2000 panelon 07-12-2024 Albumin [Mass/Vol] 3.4 g/dL Low 3.9-4.9 [facility] Comment on above: Order Comment: Speci men Type: BLOOD SPECIMENOrdering Facility: [facility] Address: [address] [place], [place] [address] Performed By: #### 2 4362-6 ####[facility] LABCLIA [id number] [place] [id number] [place] Anion gap [Moles/Vol] 14 mmol/L Normal 8-15 [facility] Comment on above: Order Comment: Speci men Type: BLOOD SPECIMENOrdering Facility: [facility] Address: [address] [place] [address] Performed By: #### 2 4362-6 ####[facility] LABCLIA [id number] [place] [address] [place] Calcium [Mass/Vol] 9.3 mg/dL Normal 8.5-10.2 [facility] Comment on above: Order Comment: Speci men Type: BLOOD SPECIMENOrdering Facility: [facility] Address: [address] [place] [address] Performed By: #### 2 4362-6 ####[facility] LABCLIA [id number] [place] [address] [place] Chloride [Moles/Vol] 101 mmol/L Normal 98-107 [facility] Comment on above: Order Comment: Speci men Type: BLOOD SPECIMENOrdering Facility: [facility] Address: [address] [place] [address] Performed By: #### 2 4362-6 ####[facility] LABCLIA [id number] [place] [id number] [place] CO2 [Moles/Vol] 21 mmol/L Low 22-30 [facility] Comment on above: Order Comment: Speci men Type: BLOOD SPECIMENOrdering Facility: [facility] Address: [address] [place], [place] [address] Performed By: #### 2 4362-6 ####[facility] LABCLIA [id number] [place] [address] [place] Creatinine [Mass/Vol] 0.81 mg/dL Normal 0.58-0.96 [facility] Comment on above: Order Comment: Rhina mason Type: BLOOD SPECIMENOrdering Facility: [facility] Address: [address] [place] [address] Performed By: #### 2 4362-6 ####[facility] LABIA [id number] [address] [facility] Creatinine and Glomerular filtration rate.predicted panel (S/P/Bld) 72 mL/min/1.73m??? Normal >=60 [facility] Comment on above: Order Comment: Rhina mason Type: BLOOD SPECIMENOrdering Facility: [facility] Address: [address] [place] [address] Result Comment: Isa mated Glomerular Filtration Rate [...] actual GFR. Performed By: #### 2 4362-6 ####[facility] LABIA [id number] [place] [address] [place] Glucose [Mass/Vol] 100 mg/dL High 74-99 [facility] Comment on above: Order Comment: Rhina mason Type: BLOOD SPECIMENOrdering Facility: [facility] Address: [address] [place] [address] Result Comment: The [place] Diabetes Association (ADA) provides guidance for cutoff [...] Standards of Medical Care in Diabetes 2016, [place] [employer]. Diabetes Care. 2016.39(Suppl 1). Performed By: #### 2 4362-6 ####[facility] LABCLIA [id number] [address] [address] [place] Phosphate [Mass/Vol] 2.7 mg/dL Normal 2.7-4.8 [facility] Comment on above: Order Comment: Speci men Type: BLOOD SPECIMENOrdering Facility: [facility] Address: [address] [place] [address] Performed By: #### 2 4362-6 ####[facility] LABIA [id number] [place] [address] [place] Potassium [Moles/Vol] 4.0 mmol/L Normal 3.7-5.1 [facility] Comment on above: Order Comment: Speci men Type: BLOOD SPECIMENOrdering Facility: [facility] Address: [address] [place], [place] [address] Performed By: #### 2 4362-6 ####[facility] LABIA [id number] [place] [id number] [place] Sodium [Moles/Vol] 136 mmol/L Normal 136-144 [facility] Comment on above: Order Comment: Speci men Type: BLOOD SPECIMENOrdering Facility: [facility] Address: [address] [place] [address] Performed By: #### 2 4362-6 ####[facility] LABIA [id number] [place] [address] [place] Urea nitrogen [Mass/Vol] 12 mg/dL Normal 7-21 [facility] Comment on above: Order Comment: Speci men Type: BLOOD SPECIMENOrdering Facility: [facility] Address: [address] [place] [address] Performed By: #### 2 4362-6 ####[facility] LABCLIA [id number] [place] [address] [place] Right eye Photo documentatio non 07-12-2024 [facility] Radiology Study observation (narrative) Amarjit chaudhry [facility] THERAPY NTon 07-12-2024 THERAPY NT HNO ID: [id number] Author: RYANN GUZMÁN OT/L Service: Occupational Therapy Author Type: Occupational Therapist Type: Therapy (PT/OT/Speech/Resp) Filed: 07/12/2024 12:26 Note Text: OCCUPATIONAL THERAPY MISSED VISIT SERVICE DATE: 07/12/2024 SERVICE TIME: 1226 ROOM: [place] [id number] ([facility] OPHTHALMOLOGY) Patient not seen due to Test / Procedure. SIGNATURE: JUANY Willett PATIENT NAME: Mel Castillo DATE: July 12, 2024 TIME: 12:26 PM Normal [facility] CBC panel Auto (Bld)on 07-11 Erythrocyte distribution width (RBC) [Ratio] 17.6 % High 11.5-15.0 [facility] Comment on above: Order Comment: Speci men Type: BLOOD SPECIMEN [facility] Address: [address] [place] [address] Performed By: #### 5 8410-2 #### [facility] CLIA [id number] [address] [place] [address] [place] Hematocrit (Bld) [Volume fraction] 32.3 % Low 36.0-46.0 [facility] Comment on above: Order Comment: Speci men Type: BLOOD SPECIMEN [facility] Address: [address] [place] [address] Performed By: #### 5 8410-2 #### [facility] CLIA [id number] [address] [place] [address] [place] Hemoglobin (Bld) [Mass/Vol] 10.5 g/dL Low 11.5-15.5 [facility] Comment on above: Order Comment: Speci men Type: BLOOD SPECIMEN [facility] Address: [address] [place] [address] Performed By: #### 5 8410-2 #### [facility] CLIA [id number] [address] [place] [address] [place] MCH (RBC) [Entitic mass] 27.0 pg Normal 26.0-34.0 [facility] Comment on above: Order Comment: Speci men Type: BLOOD SPECIMEN [facility] Address: [address] [place] [address] Performed By: #### 5 8410-2 #### [facility] CLIA [id number] [address] [place] [address] [place] MCHC (RBC) [Mass/Vol] 32.5 g/dL Normal 30.5-36.0 [facility] Comment on above: Order Comment: Speci men Type: BLOOD SPECIMEN [facility] Address: [address] [place] [address] Performed By: #### 5 8410-2 #### [facility] CLIA [id number] [address] [place] [address] [place] MCV (RBC) [Entitic vol] 83.0 fL Normal 80.0-100.0 [facility] Comment on above: Order Comment: Speci men Type: BLOOD SPECIMEN [facility] Address: [address] [place] [address] Performed By: #### 5 8410-2 #### [facility] CLIA [id number] [address] [place] [address] [place] Nucleated RBC (Bld) [#/Vol] 10*3/uL Normal <0.01 [facility] Comment on above: Order Comment: Speci men Type: BLOOD SPECIMEN [facility] Address: [address] [place] [address] Performed By: #### 5 8410-2 #### [facility] CLIA [id number] [address] [place], [place] [address] [place] Platelet mean volume (Bld) [Entitic vol] 9.9 fL Normal 9.0-12.7 [facility] Comment on above: Order Comment: Speci men Type: BLOOD SPECIMEN [facility] Address: [address] [place] [address] Performed By: #### 5 8410-2 #### [facility] CLIA [id number] [address] [place] [address] [place] Platelets (Bld) [#/Vol] 289 10*3/uL Normal 150-400 [facility] Comment on above: Order Comment: Speci men Type: BLOOD SPECIMEN [facility] Address: [address] [place] [address] Performed By: #### 5 8410-2 #### [facility] CLIA [id number] [address] [place] [address] [place] RBC (Bld) [#/Vol] 3.89 10*6/uL Low 3.90-5.20 [facility] Comment on above: Order Comment: Speci men Type: BLOOD SPECIMEN [facility] Address: [address] [place] [address] Performed By: #### 5 8410-2 #### [facility] CLIA [id number] [address] [place] [address] [place] WBC (Bld) [#/Vol] 8.32 10*3/uL Normal 3.70-11.00 [facility] Comment on above: Order Comment: Speci men Type: BLOOD SPECIMEN [facility] Address: [address] [place] [address] Performed By: #### 5 8410-2 #### [facility] CLIA [id number] [address] [place] [address] [place] Renal function 2000 panelon 07-11-2024 Albumin [Mass/Vol] 3.4 g/dL Low 3.9-4.9 [facility] Comment on above: Order Comment: Speci men Type: BLOOD SPECIMENOrdering Facility: [facility] Address: [address] [place] [address] Performed By: #### 2 4362-6 ####[facility] LABCLIA [id number] [place] [address] [place] Anion gap [Moles/Vol] 11 mmol/L Normal 8-15 [facility] Comment on above: Order Comment: Speci men Type: BLOOD SPECIMENOrdering Facility: [facility] Address: [address] [place] [address] Performed By: #### 2 4362-6 ####[facility] LABCLIA [id number] [place] [address] [place] Calcium [Mass/Vol] 8.9 mg/dL Normal 8.5-10.2 [facility] Comment on above: Order Comment: Speci men Type: BLOOD SPECIMENOrdering Facility: [facility] Address: [address] [place] [address] Performed By: #### 2 4362-6 ####[facility] LABCLIA [id number] [place] [address] [place] Chloride [Moles/Vol] 103 mmol/L Normal 98-107 [facility] Comment on above: Order Comment: Speci men Type: BLOOD SPECIMENOrdering Facility: [facility] Address: [address] [place] [address] Performed By: #### 2 4362-6 ####[facility] LABCLIA [id number] [place] [address] [place] CO2 [Moles/Vol] 23 mmol/L Normal 22-30 [facility] Comment on above: Order Comment: Speci men Type: BLOOD SPECIMENOrdering Facility: [facility] Address: [address] [place] [id number] Performed By: #### 2 4362-6 ####[facility] LABIA [id number] [place] [address] [place] Creatinine [Mass/Vol] 0.91 mg/dL Normal 0.58-0.96 [facility] Comment on above: Order Comment: Speci men Type: BLOOD SPECIMENOrdering Facility: [facility] Address: [address] [place] [address] Performed By: #### 2 4362-6 ####[facility] LABIA [id number] [place] [address] [place] Creatinine and Glomerular filtration rate.predicted panel (S/P/Bld) 62 mL/min/1.73m??? Normal >=60 [facility] Comment on above: Order Comment: Samiri men Type: BLOOD SPECIMENOrdering Facility: [facility] Address: [address] [place] [address] Result Comment: Isa mated Glomerular Filtration Rate [...] actual GFR. Performed By: #### 2 4362-6 ####[facility] LABIA [id number] [place] [id number] [place] Glucose [Mass/Vol] 98 mg/dL Normal 74-99 [facility] Comment on above: Order Comment: Samiri men Type: BLOOD SPECIMENOrdering Facility: [facility] Address: [address] [place] [address] Result Comment: The [place] Diabetes Association (ADA) provides guidance for cutoff [...] Standards of Medical Care in Diabetes 2016, [place] [employer]. Diabetes Care. 2016.39(Suppl 1). Performed By: #### 2 4362-6 ####[facility] LABIA [id number] [place] [address] [place] Phosphate [Mass/Vol] 2.8 mg/dL Normal 2.7-4.8 [facility] Comment on above: Order Comment: Speci men Type: BLOOD SPECIMENOrdering Facility: [facility] Address: [address] [place] [address] Performed By: #### 2 4362-6 ####[facility] [id number] [place] [address] [place] Potassium [Moles/Vol] 3.6 mmol/L Low 3.7-5.1 [facility] Comment on above: Order Comment: Speci men Type: BLOOD SPECIMENOrdering Facility: [facility] Address: [address] [place] [address] Performed By: #### 2 4362-6 ####[facility] LABIA [id number] [place] [address] [place] Sodium [Moles/Vol] 137 mmol/L Normal 136-144 [facility] Comment on above: Order Comment: Speci men Type: BLOOD SPECIMENOrdering Facility: [facility] Address: [address] [place] [address] Performed By: #### 2 4362-6 ####[facility] LABIA [id number] [place] [address] [place] Urea nitrogen [Mass/Vol] 15 mg/dL Normal 7-21 [facility] Comment on above: Order Comment: Rhina mason Type: BLOOD SPECIMENOrdering Facility: [facility] Address: [address] [place] [address] Performed By: #### 2 4362-6 ####[facility] LABCLIA [id number] [address] [place] CASE MANAGEMon 07-10-2024 CASE MANAGEM HNO ID: [id number] Author: MYA HUGHES LSW Service: Social Work Author Type: Medical Dermatologist Type: Care Mgt Progress Note Filed: 07/10/2024 14:42 Note Text: CARE MANAGEMENT PROGRESS NOTE SERVICE DATE: 07/10/2024 SERVICE TIME: 2:38 PM LOS: 3 days Post-Acute Discharge Planning Patient Goal(s): Increase strength [place] Explained: [place] Given: Yes Post-Acute Discharge Plan: [...] July 10, 2024 TIME: 2:38 PM Normal [facility] CBC panel Auto (Bld)on 07-10 Erythrocyte distribution width (RBC) [Ratio] 17.5 % High 11.5-15.0 [facility] Comment on above: Order Comment: Rhina mason Type: BLOOD SPECIMEN Ordering Facility: [facility] Address: [address] [place] [address] Performed By: #### 2 276-4 #### [facility] CLIA [id number] [address] [place] [address] [place] Hematocrit (Bld) [Volume fraction] 31.7 % Low 36.0-46.0 [facility] Comment on above: Order Comment: Rhina mason Type: BLOOD SPECIMEN Ordering Facility: [facility] Address: [address] [place] [address] Performed By: #### 2 276-4 #### [facility] CLIA [id number] [address] [place] [address] [place] Hemoglobin (Bld) [Mass/Vol] 9.9 g/dL Low 11.5-15.5 [facility] Comment on above: Order Comment: Speci men Type: BLOOD SPECIMEN Ordering Facility: [facility] Address: [address] [place] [address] Performed By: #### 2 276-4 #### [facility] CLIA [id number] [address] [place] [address] [place] MCH (RBC) [Entitic mass] 26.0 pg Normal 26.0-34.0 [facility] Comment on above: Order Comment: Speci men Type: BLOOD SPECIMEN Ordering Facility: [facility] Address: [address] [place] [address] Performed By: #### 2 276-4 #### [facility] CLIA [id number] [address] [place] [address] [place] MCHC (RBC) [Mass/Vol] 31.2 g/dL Normal 30.5-36.0 [facility] Comment on above: Order Comment: Speci men Type: BLOOD SPECIMEN Ordering Facility: [facility] Address: [address] [place] [address] Performed By: #### 2 276-4 #### [facility] CLIA [id number] [address] [place] [address] [place] MCV (RBC) [Entitic vol] 83.2 fL Normal 80.0-100.0 [facility] Comment on above: Order Comment: Speci men Type: BLOOD SPECIMEN Ordering Facility: [facility] Address: [address] [place] [address] Performed By: #### 2 276-4 #### [facility] CLIA [id number] [address] [place] [address] [place] Nucleated RBC (Bld) [#/Vol] 10*3/uL Normal <0.01 [facility] Comment on above: Order Comment: Speci men Type: BLOOD SPECIMEN Ordering Facility: [facility] Address: [address] [place] [address] Performed By: #### 2 276-4 #### [facility] CLIA [id number] [address] [place] [address] [place] Platelet mean volume (Bld) [Entitic vol] 10.3 fL Normal 9.0-12.7 [facility] Comment on above: Order Comment: Speci men Type: BLOOD SPECIMEN Ordering Facility: [facility] Address: [address] [place] [address] Performed By: #### 2 276-4 #### [facility] CLIA [id number] [address] [place] [address] [place] Platelets (Bld) [#/Vol] 336 10*3/uL Normal 150-400 [facility] Comment on above: Order Comment: Speci men Type: BLOOD SPECIMEN Ordering Facility: [facility] Address: [address] [place] [address] Performed By: #### 2 276-4 #### [facility] CLIA [id number] [address] [place] [address] [place] RBC (Bld) [#/Vol] 3.81 10*6/uL Low 3.90-5.20 [facility] Comment on above: Order Comment: Speci men Type: BLOOD SPECIMEN Ordering Facility: [facility] Address: [address] [place] [address] Performed By: #### 2 276-4 #### [facility] CLIA [id number] [address] [place] [address] [place] WBC (Bld) [#/Vol] 6.35 10*3/uL Normal 3.70-11.00 [facility] Comment on above: Order Comment: Speci men Type: BLOOD SPECIMEN Ordering Facility: [facility] Address: [address] [place] [address] Performed By: #### 2 276-4 #### [facility] CLIA [id number] [address] [place] [address] [place] Renal function 2000 panelon 07-10-2024 Albumin [Mass/Vol] 3.5 g/dL Low 3.9-4.9 [facility] Comment on above: Order Comment: Speci men Type: BLOOD SPECIMEN [facility] Address: [address] [place] [address] Performed By: #### 2 4362-6 #### [facility] CLIA [id number] [address] [place] [address] [place] Anion gap [Moles/Vol] 12 mmol/L Normal 8-15 [facility] Comment on above: Order Comment: Speci men Type: BLOOD SPECIMEN [facility] Address: [address] [place] [address] Performed By: #### 2 4362-6 #### [facility] CLIA [id number] [address] [place] [address] [place] Calcium [Mass/Vol] 9.0 mg/dL Normal 8.5-10.2 [facility] Comment on above: Order Comment: Speci men Type: BLOOD SPECIMEN [facility] Address: [address] [place] [address] Performed By: #### 2 4362-6 #### [facility] CLIA [id number] [address] [place] [address] [place] Chloride [Moles/Vol] 104 mmol/L Normal 98-107 [facility] Comment on above: Order Comment: Speci men Type: BLOOD SPECIMEN [facility] Address: [address] [place] [address] Performed By: #### 2 4362-6 #### [facility] CLIA [id number] [address] [place], [place] [address] [place] CO2 [Moles/Vol] 22 mmol/L Normal 22-30 [facility] Comment on above: Order Comment: Speci men Type: BLOOD SPECIMEN [facility] Address: [address] [place] [address] Performed By: #### 2 4362-6 #### [facility] CLIA [id number] [address] [place] [address] [place] Creatinine [Mass/Vol] 0.93 mg/dL Normal 0.58-0.96 [facility] Comment on above: Order Comment: Speci men Type: BLOOD SPECIMEN [facility] Facility: [facility] Address: [address] [place] [address] Performed By: #### 2 4362-6 #### [facility] CLIA [id number] [address] [place] [address] [place] Creatinine and Glomerular filtration rate.predicted panel (S/P/Bld) 61 mL/min/1.73m??? Normal >=60 [facility] Comment on above: Order Comment: Speci men Type: BLOOD SPECIMEN [facility] Address: [address] [place] [address] Result Comment: Isa mated Glomerular Filtration Rate [...] GFR. Performed By: #### 2 4362-6 #### [facility] CLIA [id number] [address] [place] [address] [place] Glucose [Mass/Vol] 102 mg/dL High 74-99 [facility] Comment on above: Order Comment: Speci men Type: BLOOD SPECIMEN [facility] Facility: [facility] Address: [address] [place] [address] Result Comment: The [place] Diabetes Association (ADA) provides guidance for cutoff [...] Standards of Medical Care in Diabetes 2016, [place] [employer]. Diabetes Care. 2016.39(Suppl 1). Performed By: #### 2 4362-6 #### [facility] CLIA [id number] [address] [place] [address] [place] Phosphate [Mass/Vol] 2.6 mg/dL Low 2.7-4.8 [facility] Comment on above: Order Comment: Speci men Type: BLOOD SPECIMEN Ordering Facility: [facility] Address: [address] [place] [address] Performed By: #### 2 4362-6 #### [facility] CLIA [id number] [address] [place] [address] [place] Potassium [Moles/Vol] 3.9 mmol/L Normal 3.7-5.1 [facility] Comment on above: Order Comment: Speci men Type: BLOOD SPECIMEN Ordering Facility: [facility] Address: [address] [place] [address] Performed By: #### 2 4362-6 #### [facility] CLIA [id number] [address] [place] [address] [place] Sodium [Moles/Vol] 138 mmol/L Normal 136-144 [facility] Comment on above: Order Comment: Speci men Type: BLOOD SPECIMEN Ordering Facility: [facility] Address: [address] [place] [address] Performed By: #### 2 4362-6 #### [facility] CLIA [id number] [address] [place] [address] [place] Urea nitrogen [Mass/Vol] 21 mg/dL Normal 7-21 [facility] Comment on above: Order Comment: Speci men Type: BLOOD SPECIMEN Ordering Facility: [facility] Address: [address] [place] [address] Performed By: #### 2 4362-6 #### [facility] CLIA [id number] [address] [place] [address] [place] THERAPY NTon 07-10-2024 THERAPY NT HNO ID: [id number] Author: SANTIAGO GUZMAN OT/L Service: Occupational Therapy Author Type: Occupational Therapist Type: Therapy (PT/OT/Speech/Resp) Filed: 07/10/2024 10:00 Note Text: Occupational Therapy Evaluation Summary SERVICE DATE: 07/10/2024 SERVICE TIME: 0840 to 0920 ROOM: [place] [address] OT 6 Clicks Score: 15 DISCHARGE RECOMMENDATIONS [...] shadows and occasionally the color while / inspector and sorter colors. SNF rec at this time pending [...] Muscle Weakness (generalized) TREATMENT INTERVENTIONS Evaluation, Self Detention Management (96568) Timed Code Treatment (minutes): 25 Skilled Treatment [...] Sit to Stand, Standing Balance to Improve Amelia with ADLs/Self-Care, Sitting Balance to Improve Amelia with ADLs/Self-Care, Life Roles/Routines/Habits THERAPEUTIC SKILLS USED Therapeutic Use of Self, Physical Assist, Movement Facilitation, Management of Critical Lines, Tubes and/or Drains FUNCTIONAL STATUS Activities of Daily Living Assist Level Additional Information Feeding Minimal Assistance Grooming Moderate Assistance Bathing Upper Body Minimal Assistance Bathing Lower Body Ma (more content not included)... Normal [facility] CBC panel Auto (Bld)on 07-09 Erythrocyte distribution width (RBC) [Ratio] 17.7 % High 11.5-15.0 [facility] Comment on above: Order Comment: Speci isabella Type: BLOOD SPECIMEN Ordering Facility: [facility] Address: [address] [place] [address] Performed By: #### 2 4362-6 #### [facility] CLIA [id number] [address] [place] [address] [place] Hematocrit (Bld) [Volume fraction] 33.9 % Low 36.0-46.0 [facility] Comment on above: Order Comment: Rhina mason Type: BLOOD SPECIMEN Ordering Facility: [facility] Address: [address] [place] [address] Performed By: #### 2 4362-6 #### [facility] CLIA [id number] [address] [place] [address] [place] Hemoglobin (Bld) [Mass/Vol] 10.5 g/dL Low 11.5-15.5 [facility] Comment on above: Order Comment: Samiri men Type: BLOOD SPECIMEN Ordering Facility: [facility] Address: [address] [place] [address] Performed By: #### 2 4362-6 #### [facility] CLIA [id number] [address] [place] [address] [place] MCH (RBC) [Entitic mass] 26.6 pg Normal 26.0-34.0 [facility] Comment on above: Order Comment: Speci men Type: BLOOD SPECIMEN Ordering Facility: [facility] Address: [address] [place] [address] Performed By: #### 2 4362-6 #### [facility] CLIA [id number] [address] [place] [address] [place] MCHC (RBC) [Mass/Vol] 31.0 g/dL Normal 30.5-36.0 [facility] Comment on above: Order Comment: Speci men Type: BLOOD SPECIMEN Ordering Facility: [facility] Address: [address] [place] [address] Performed By: #### 2 4362-6 #### [facility] CLIA [id number] [address] [place] [address] [place] MCV (RBC) [Entitic vol] 86.0 fL Normal 80.0-100.0 [facility] Comment on above: Order Comment: Speci men Type: BLOOD SPECIMEN Ordering Facility: [facility] Address: [address] [place] [address] Performed By: #### 2 4362-6 #### [facility] CLIA [id number] [address] [place] [address] [place] Nucleated RBC (Bld) [#/Vol] 10*3/uL Normal <0.01 [facility] Comment on above: Order Comment: Speci men Type: BLOOD SPECIMEN Ordering Facility: [facility] Address: [address] [place] [address] Performed By: #### 2 4362-6 #### [facility] CLIA [id number] [address] [place] [address] [place] Platelet mean volume (Bld) [Entitic vol] 10.4 fL Normal 9.0-12.7 [facility] Comment on above: Order Comment: Speci men Type: BLOOD SPECIMEN Ordering Facility: [facility] Address: [address] [place] [address] Performed By: #### 2 4362-6 #### [facility] CLIA [id number] [address] [place] [address] [place] Platelets (Bld) [#/Vol] 346 10*3/uL Normal 150-400 [facility] Comment on above: Order Comment: Speci men Type: BLOOD SPECIMEN Ordering Facility: [facility] Address: [address] [place] [address] Performed By: #### 2 4362-6 #### [facility] CLIA [id number] [address] [place] [address] [place] RBC (Bld) [#/Vol] 3.94 10*6/uL Normal 3.90-5.20 [facility] Comment on above: Order Comment: Speci men Type: BLOOD SPECIMEN Ordering Facility: [facility] Address: [address] [place] [address] Performed By: #### 2 4362-6 #### [facility] CLIA [id number] [address] [place] [address] [place] WBC (Bld) [#/Vol] 8.22 10*3/uL Normal 3.70-11.00 [facility] Comment on above: Order Comment: Speci men Type: BLOOD SPECIMEN Ordering Facility: [facility] Address: [address] [place] [address] Performed By: #### 2 4362-6 #### [facility] CLIA [id number] [address] [place] [address] [place] Renal function 2000 panelon 07-09-2024 Albumin [Mass/Vol] 3.6 g/dL Low 3.9-4.9 [facility] Comment on above: Order Comment: Speci men Type: BLOOD SPECIMEN Ordering Facility: [facility] Address: [address] [place] [address] Performed By: #### 2 4362-6 #### [facility] CLIA [id number] [address] [place] Anion gap [Moles/Vol] 11 mmol/L Normal 8-15 [facility] Comment on above: Order Comment: Speci men Type: BLOOD SPECIMEN Ordering Facility: [facility] Address: [address] [place], [place] [address] Performed By: #### 2 4362-6 #### [facility] CLIA [id number] [address] [place] [address] [place] Calcium [Mass/Vol] 8.8 mg/dL Normal 8.5-10.2 [facility] Comment on above: Order Comment: Speci men Type: BLOOD SPECIMEN Ordering Facility: [facility] Address: [address] [place] [address] Performed By: #### 2 4362-6 #### [facility] CLIA [id number] [address] [place], [place] [address] [place] Chloride [Moles/Vol] 103 mmol/L Normal 98-107 [facility] Comment on above: Order Comment: Speci men Type: BLOOD SPECIMEN Ordering Facility: [facility] Address: [address] [place], [place] [address] Performed By: #### 2 4362-6 #### [facility] CLIA [id number] [address] [place], [place] [address] [place] CO2 [Moles/Vol] 22 mmol/L Normal 22-30 [facility] Comment on above: Order Comment: Speci men Type: BLOOD SPECIMEN Ordering Facility: [facility] Address: [address] [place], [place] [address] Performed By: #### 2 4362-6 #### [facility] CLIA [id number] [address] [place], [place] [address] [place] Creatinine [Mass/Vol] 0.94 mg/dL Normal 0.58-0.96 [facility] Comment on above: Order Comment: Rhina mason Type: BLOOD SPECIMEN Ordering Facility: [facility] Address: [address] [place] [address] Performed By: #### 2 4362-6 #### [facility] CLIA [id number] [address] [place] [address] [place] Creatinine and Glomerular filtration rate.predicted panel (S/P/Bld) 60 mL/min/1.73m??? Normal >=60 [facility] Comment on above: Order Comment: Rhina mason Type: BLOOD SPECIMEN Ordering Facility: [facility] Address: [address] [place] [address] Result Comment: Isa mated Glomerular Filtration Rate [...] GFR. Performed By: #### 2 4362-6 #### [facility] CLIA [id number] [address] [place] [address] [place] Glucose [Mass/Vol] 158 mg/dL High 74-99 [facility] Comment on above: Order Comment: Rhina mason Type: BLOOD SPECIMEN Ordering Facility: [facility] Address: [address] [place] [address] Result Comment: The [place] [employer] (ADA) provides guidance for cutoff [...] Standards of Medical Care in Diabetes 2016, [place] [employer]. Diabetes Care. 2016.39(Suppl 1). Performed By: #### 2 4362-6 #### [facility] CLIA [id number] [address] [place] [address] [place] Phosphate [Mass/Vol] 2.0 mg/dL Low 2.7-4.8 [facility] Comment on above: Order Comment: Speci men Type: BLOOD SPECIMEN Ordering Facility: [facility] Address: [address] [place] [address] Performed By: #### 2 4362-6 #### [facility] CLIA [id number] [address] [place] [address] [place] Potassium [Moles/Vol] 4.1 mmol/L Normal 3.7-5.1 [facility] Comment on above: Order Comment: Speci men Type: BLOOD SPECIMEN Ordering Facility: [facility] Address: [address] [place] [address] Performed By: #### 2 4362-6 #### [facility] CLIA [id number] [address] [place] [address] [place] Sodium [Moles/Vol] 136 mmol/L Normal 136-144 [facility] Comment on above: Order Comment: Speci men Type: BLOOD SPECIMEN Ordering Facility: [facility] Address: [address] [place] [address] Performed By: #### 2 4362-6 #### [facility] CLIA [id number] [address] [place] [address] [place] Urea nitrogen [Mass/Vol] 18 mg/dL Normal 7-21 [facility] Comment on above: Order Comment: Speci men Type: BLOOD SPECIMEN Ordering Facility: [facility] Address: [address] [place] [address] Performed By: #### 2 4362-6 #### [facility] CLIA [id number] [address] [place] [address] [place] CONSULTon 12-22-2024 CONSULT HNO ID: [id number] Author: JARED GILMORE MD Service: Ophthalmology Author [...] Mon-Tue, 7 am - 5 pm, page [phone] Mon-Tue, 5 pm - 7 am, page [phone] Weekends (Fri 5 pm to Mon 7 am), page [phone] EXAM: Base Eye Exam Visual Acuity Right Left Dist sc CF at 3' Tonometry (Applanation, 8:30 AM) Right Left Pressure 14 Pupils Dark Light Shape React Right 6 (more content not included)... Normal [facility] [id number] 07-07-2024 [id number] Normal [facility] BASIC METABOLIC PANELon - Anion gap [Moles/Vol] 4 mmol/L Normal 3-13 [facility] Comment on above: Performed By: #### L [id number] ####Flavor Room Worker: VELMA VALADEZ ([id number])[facility])[address] [place] [address] Calcium [Mass/Vol] 8.7 mg/dL Low 8.8-10.[address] [facility] Comment on above: Performed By: #### L [id number] ####Flavor Room Worker: VELMA VALADEZ ([id number])[facility] ([facility])[address] [place] [address] Chloride [Moles/Vol] 111 mmol/L High 98-107 [facility] Comment on above: Performed By: #### L AB15 ####Flavor Room Worker: VELMA VALADEZ ([id number])[facility] ([facility])[address] [place] [address] CO2 [Moles/Vol] 23 mmol/L Normal 23-31 [facility] Comment on above: Performed By: #### L AB15 ####Flavor Room Worker: VELMA VALADEZ ([id number])[facility])[address] [place] [address] Creatinine [Mass/Vol] 0.84 mg/dL Normal 0.57-1.11 [facility] Comment on above: Performed By: #### L AB15 ####Flavor Room Worker: VELMA VALADEZ ([id number])[facility])[address] [place] [address] GLOMERULAR FILTRATION RATE ML/MIN/1.73 SQ M.PREDICTED 68.6 mL/min/1.73m*2 Normal >60.[address] [facility] Comment on above: Result Comment: Calc ulation based on the Chronic Kidney Disease Epidemiology Collaboration (CKD-EPI) equation refit without adjustment for race Performed By: #### L [id number] ####Flavor Room Worker: VELMA VALADEZ ([id number])[facility])[address] [place] [address] Glucose [Mass/Vol] 102 mg/dL Normal 82-[address] [facility] Comment on above: Performed By: #### L [id number] ####Flavor Room Worker: VELMA VALADEZ ([id number])[facility])[address] [place] [address] Potassium [Moles/Vol] 4.0 mmol/L Normal 3.5-5.1 [facility] Comment on above: Result Comment: [facility] potassium values may be up to 0.5 mmol/L lower than serum values. Performed By: #### L AB15 ####Flavor Room Worker: VELMA VALADEZ ([id number])[facility])[address] [place] [address] Sodium [Moles/Vol] 138 mmol/L Normal 136-[address] [facility] Comment on above: Performed By: #### L [id number] ####Flavor Room Worker: VELMA VALADEZ ([id number])[facility] ([facility])[address] [place] [address] Urea nitrogen [Mass/Vol] 19 mg/dL Normal 9-23 [facility] Comment on above: Performed By: #### L [id number] ####Flavor Room Worker: VELMA VALADEZ ([id number])[facility] ([facility])[address] [place] [address] Basic metabolic 1998 panelon 07-07-2024 Anion gap [Moles/Vol] 4 mmol/L 3 - 13 mmol/L [facility] Calcium [Mass/Vol] 8.7 mg/dL Low 8.8 - 10. 0 mg/dL [facility] Chloride [Moles/Vol] 111 mmol/L High 98 - 10 7 mmol/L [facility] CO2 [Moles/Vol] 23 mmol/L 23 - 31 mmol/L [facility] Creatinine [Mass/Vol] 0.84 mg/dL 0.57 - 1.11 mg/dL [facility] GFR/1.73 sq M.predicted (S/P/Bld) [Vol rate/Area] 68.6 mL/min - PINF [facility] Comment on above: Calculation based on the Chronic Kidney Disease Epidemiology Collaboration (CKD-EPI) equation refit without adjustment for race Glucose [Mass/Vol] 102 mg/dL 82 - 115 mg/dL [facility] Interpretation and review of laboratory results Abnormal [facility] Potassium [Moles/Vol] 4 mmol/L 3.5 - 5.1 mmol/L [facility] Comment on above: Plasma potassium chris ues may be up to 0.5 mmol/L lower than serum values. Sodium [Moles/Vol] 138 mmol/L 136 - 145 mmol/L [facility] Urea nitrogen [Mass/Vol] 19 mg/dL 9 - 23 mg/dL [facility] CBC W Auto Differential pane l (Bld)Ordered By: Devika Eisenberg on 07-07-2024 Basophils (Bld) [#/Vol] 0 10*3/uL 0.0 - 0.2 10*3/uL [facility] Basophils/100 WBC (Bld) 0.4 % 0.0 - 2.0 % [facility] Eosinophils (Bld) [#/Vol] 0.1 10*3/uL 0.0 - 0.5 10*3/uL [facility] Eosinophils/100 WBC (Bld) 1.3 % 0.0 - 6.0 % [facility] Erythrocyte distribution width (RBC) [Ratio] 17.6 % High 11.5 - 15.0 % [facility] Hematocrit (Bld) [Volume fraction] 29.9 % Low 35.0 - 47.0 % [facility] Hemoglobin (Bld) [Mass/Vol] 9.1 g/dL Low 11.7 - 16.0 g/dL [facility] Immature granulocytes (Bld) [#/Vol] 0 10*3/uL NINF - 0.1 10*3/uL [facility] Immature granulocytes/100 WBC (Bld) 0.2 % 0.0 - 2.0 % [facility] Interpretation and review of laboratory results Abnormal [facility] Lymphocytes (Bld) [#/Vol] 1.2 10*3/uL 1.0 - 4.3 10*3/uL [facility] Lymphocytes/100 WBC (Bld) 22 % 15.0 - 45.0 % [facility] MCH (RBC) [Entitic mass] 25.9 pg Low 26.0 - 34.0 pg [facility] MCHC (RBC) [Mass/Vol] 30.4 % Low 30.5 - 36.0 % [facility] MCV (RBC) [Entitic vol] 84.9 fL 77.0 - 99.0 fL [facility] Monocytes (Bld) [#/Vol] 0.6 10*3/uL 0.0 - 0.9 10*3/uL [facility] Monocytes/100 WBC (Bld) 10 % 5.0 - 13.0 % [facility] Neutrophils (Bld) [#/Vol] 3.7 10*3/uL 1.8 - 7.5 10*3/uL [facility] Neutrophils/100 WBC (Bld) 66.1 % 38.0 - 82.0 % [facility] Nucleated RBC/100 WBC (Bld) [Ratio] 0 % [facility] Platelet mean volume (Bld) [Entitic vol] 9.8 fL 9.0 - 12.7 fL [facility] Platelets (Bld) [#/Vol] 301 10*3/uL 140 - 440 10*3/uL [facility] RBC (Bld) [#/Vol] 3.52 10*6/uL Low 3.80 - 5.2 0 10*6/uL [facility] WBC (Bld) [#/Vol] 5.6 10*3/uL 3.6 - 10.7 10*3/uL [facility] CBC WITH AUTO DIFFERENTIALon 07-07-2024 Basophils (Bld) [#/Vol] 0.0 10*3/uL Normal 0.0-0.2 [facility] Comment on above: Performed By: #### L [id number] ####Flavor Room Worker: VELMA VALADEZ ([id number])[facility])[address] [place] [address] Basophils/100 WBC (Bld) 0.4 % Normal 0.0-2.0 [facility] Comment on above: Performed By: #### L [id number] ####Flavor Room Worker: VELMA VALADEZ ([id number])[facility])[address] [place] [address] Eosinophils (Bld) [#/Vol] 0.1 10*3/uL Normal 0.0-0.5 [facility] Comment on above: Performed By: #### L [id number] ####Flavor Room Worker: VELMA VALADEZ ([id number])[facility])[address] [place] [address] Eosinophils/100 WBC (Bld) 1.3 % Normal 0.0-6.0 [facility] Comment on above: Performed By: #### L [id number] ####Flavor Room Worker: VELMA VALADEZ ([id number])[facility])[address] [place] [address] Erythrocyte distribution width (RBC) [Ratio] 17.6 % High 11.5-15.0 [facility] Comment on above: Performed By: #### L [id number] ####Flavor Room Worker: VELMA VALADEZ ([id number])[facility])[address] [place] [address] Hematocrit (Bld) [Volume fraction] 29.9 % Low 35.0-47.0 [facility] Comment on above: Performed By: #### L [id number] ####Flavor Room Worker: VELMA VALADEZ ([id number])[facility])[address] [place] [address] Hemoglobin (Bld) [Mass/Vol] 9.1 g/dL Low 11.7-16.0 [facility] Comment on above: Performed By: #### L [id number] ####Flavor Room Worker: VELMA VALADEZ ([id number])[facility])[address] [place] [address] IMMATURE GRANS % 0.2 % Normal 0.0-2.0 [facility] Comment on above: Performed By: #### L [id number] ####Flavor Room Worker: VELMA VALADEZ ([id number])[facility])[address] [place] [address] IMMATURE GRANS ABSOLUTE 0.0 10*3/uL Normal <0.1 [facility] Comment on above: Performed By: #### L [id number] ####Flavor Room Worker: VELMA VALADEZ ([id number])[facility])[address] [place] [address] Lymphocytes (Bld) [#/Vol] 1.2 10*3/uL Normal 1.0-4.3 [facility] Comment on above: Performed By: #### L [id number] ####Flavor Room Worker: VELMA VALADEZ ([id number])[facility])[address] [place] [address] Lymphocytes/100 WBC (Bld) 22.0 % Normal 15.0-45.0 [facility] Comment on above: Performed By: #### L [id number] ####Flavor Room Worker: VELMA VALADEZ ([id number])[facility])[address] [place] [address] MCH (RBC) [Entitic mass] 25.9 pg Low 26.0-34.0 [facility] Comment on above: Performed By: #### L [id number] ####Flavor Room Worker: VELMA VALADEZ ([id number])[facility])[address] [place] [address] MCHC 30.4 % Low 30.5-36.0 [facility] Comment on above: Performed By: #### L [id number] ####Flavor Room Worker: VELMA VALADEZ ([id number])[facility])[address] [place] [address] MCV (RBC) [Entitic vol] 84.9 fL Normal 77.0-99.0 [facility] Comment on above: Performed By: #### L [id number] ####Flavor Room Worker: VELMA VALADEZ ([id number])[facility])[address] [place] [address] Monocytes (Bld) [#/Vol] 0.6 10*3/uL Normal 0.0-0.9 [facility] Comment on above: Performed By: #### L [id number] ####Flavor Room Worker: VELMA VALADEZ ([id number])[facility])[address] [place] [address] Monocytes/100 WBC (Bld) 10.0 % Normal 5.0-13.0 [facility] Comment on above: Performed By: #### L [id number] ####Flavor Room Worker: VELMA VALADEZ ([id number])[facility])[address] [place] [address] NEUTROPHILS ABSOLUTE 3.7 10*3/uL Normal 1.8-7.5 [facility] Comment on above: Performed By: #### L [id number] ####Flavor Room Worker: VELMA VALADEZ ([id number])[facility])[address] [place] [address] Neutrophils/100 WBC (Bld) 66.1 % Normal 38.0-82.0 [facility] Comment on above: Performed By: #### L [id number] ####Flavor Room Worker: VELMA [id number])[facility] ([facility])[address] [place] [address] NRBC 0.0 /100 WBCs Normal 0.0-2.0 [facility] Comment on above: Performed By: #### L [id number] ####Flavor Room Worker: VELMA VALADEZ ([id number])[facility])[address] [place] [address] Platelet mean volume (Bld) [Entitic vol] 9.8 fL Normal 9.0-12.[address] [facility] Comment on above: Performed By: #### L [id number] ####Flavor Room Worker: VELMA VALADEZ ([id number])[facility])[address] [place] [address] Platelets (Bld) [#/Vol] 301 10*3/uL Normal 140-[address] [facility] Comment on above: Performed By: #### L [id number] ####Flavor Room Worker: VELMA VALADEZ ([id number])[facility] ([facility])[address] [place] [address] RBC (Bld) [#/Vol] 3.52 10*6/uL Low 3.80-5.[address] [facility] Comment on above: Performed By: #### L [id number] ####Flavor Room Worker: VELMA VALADEZ ([id number])[facility])[address] [place] [address] WBC (Bld) [#/Vol] 5.6 10*3/uL Normal 3.6-10.[address] [facility] Comment on above: Performed By: #### L [id number] ####Flavor Room Worker: VELMA VALADEZ ([id number])[facility])[address] [place] [address] CBC panel Auto (Bld)on 07-07 Erythrocyte distribution width (RBC) [Ratio] 17.5 % High 11.5-15.0 [facility] Comment on above: Order Comment: Speci men Type: BLOOD SPECIMEN Ordering Facility: [facility] Address: [address] [place] [address] Performed By: #### 2 4362-6 #### [facility] CLIA [id number] [address] [place] [address] [place] Hematocrit (Bld) [Volume fraction] 32.7 % Low 36.0-46.0 [facility] Comment on above: Order Comment: Speci men Type: BLOOD SPECIMEN Ordering Facility: [facility] Address: [address] [place] [address] Performed By: #### 2 4362-6 #### [facility] CLIA [id number] [address] [place] [address] [place] Hemoglobin (Bld) [Mass/Vol] 10.2 g/dL Low 11.5-15.5 [facility] Comment on above: Order Comment: Speci men Type: BLOOD SPECIMEN Ordering Facility: [facility] Address: [address] [place] [address] Performed By: #### 2 4362-6 #### [facility] CLIA [id number] [address] [place] [address] [place] MCH (RBC) [Entitic mass] 26.8 pg Normal 26.0-34.0 [facility] Comment on above: Order Comment: Speci men Type: BLOOD SPECIMEN Ordering Facility: [facility] Address: [address] [place] [address] Performed By: #### 2 4362-6 #### [facility] CLIA [id number] [address] [place] [address] [place] MCHC (RBC) [Mass/Vol] 31.2 g/dL Normal 30.5-36.0 [facility] Comment on above: Order Comment: Speci men Type: BLOOD SPECIMEN Ordering Facility: [facility] Address: [address] [place] [address] Performed By: #### 2 4362-6 #### [facility] CLIA [id number] [address] [place] [address] [place] MCV (RBC) [Entitic vol] 86.1 fL Normal 80.0-100.0 [facility] Comment on above: Order Comment: Speci men Type: BLOOD SPECIMEN Ordering Facility: [facility] Address: [address] [place] [address] Performed By: #### 2 4362-6 #### [facility] CLIA [id number] [address] [place] [address] [place] Nucleated RBC (Bld) [#/Vol] 10*3/uL Normal <0.01 [facility] Comment on above: Order Comment: Speci men Type: BLOOD SPECIMEN Ordering Facility: [facility] Address: [address] [place] [address] Performed By: #### 2 4362-6 #### [facility] CLIA [id number] [address] [place] [address] [place] Platelet mean volume (Bld) [Entitic vol] 9.8 fL Normal 9.0-12.7 [facility] Comment on above: Order Comment: Speci men Type: BLOOD SPECIMEN Ordering Facility: [facility] Address: [address] [place] [address] Performed By: #### 2 4362-6 #### [facility] CLIA [id number] [address] [place] [address] [place] Platelets (Bld) [#/Vol] 284 10*3/uL Normal 150-400 [facility] Comment on above: Order Comment: Speci men Type: BLOOD SPECIMEN Ordering Facility: [facility] Address: [address] [place] [address] Performed By: #### 2 4362-6 #### [facility] CLIA [id number] [address] [place] [address] [place] RBC (Bld) [#/Vol] 3.80 10*6/uL Low 3.90-5.20 [facility] Comment on above: Order Comment: Speci men Type: BLOOD SPECIMEN Ordering Facility: [facility] Address: [address] [place] [address] Performed By: #### 2 4362-6 #### [facility] CLIA [id number] [address] [place], [place] [address] [address] [place] WBC (Bld) [#/Vol] 5.72 10*3/uL Normal 3.70-11.00 [facility] Comment on above: Order Comment: Speci men Type: BLOOD SPECIMEN Ordering Facility: [facility] Address: [address] [place] [address] Performed By: #### 2 4362-6 #### [facility] CLIA [id number] [address] [place] [address] [place] [address] ORBITS WO IVCONon -21-[address] ORBITS WO IVCON * * *Final Report* * * DATE OF EXAM: Jul 07 2024 8:21PM [facility]10 - CT ORBITS WO IVCON / [...] changes. Unchanged appearance of left globe/phthisis bulbi. Rerecording Mixer: PSCB Transcribe Date/Time: Jul 07 2024 8:24P Dictated by : ULICES LEBLANC MD This examination was interpreted and the report reviewed and electronically signed by: DE JAIN MD on Jul 07 2024 9:18PM EST [id number] Normal [facility] HISTORY PHYSICALon HISTORY PHYSICAL HNO ID: [id number] Author: FELICIA LEVY MD Service: General Internal [...] 3pm to 7am): Please page on-call resident [phone] (Jonathan Chaudhry Subjective CHIEF COMPLAINT: Acute angle closure glaucoma HPI: Mel Castillo is a 83 year old female with a PMH of COPD, HTN, Afib (on Lovenox), CKD Stage 3, L retinal detachment, recurrent embolic events, and most 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 She was subsequently taken by the meat boner for peripheral iridotomy's, which helped to reduce elevated intraocular pressure down to 10.2 mmHg in the R eye. Furthermore, was evaluated by stroke team at [place] who reviewed her images and believed her headache and severe vision loss was secondary to the acute closure glaucoma and not stroke. Ultimately, it was determined that due to vision now being reduced to only one eye she required retinal specialist at [place] for repair of acute retinal detachment on [...] of breath., Disp: , Rfl: , 07/06/2024 elthroligfj-cusoumefx-s ilanter (TRELEGY ELLIPTA) 100-62.5-25 mcg inhalation powder, Inhale 1 (more content not included)... Normal [facility] NURSING PROGon 07-07-2024 NURSING PROG HNO ID: [id number] Author: SONNY CASTILLO, RADHA Service: Nursing Author [...] notify nurse if she experiences pain. Normal [facility] NURSING PROG HNO ID: [id number] Author: WINIFRED HILLS, RADHA Service: ? Author Type: Registered Nurse Type: Nursing Progress Note Filed: 07/07/2024 12:15 Note Text: Transfer Note: PATIENT NAME: Mel Castillo Patient Location: [place] [address]/60-31 Room: [place] [address] Patient transferred into room/unit H60-31 in stable condition. Actions taken: Team notified. Patient belongings with patient. Pt oriented to the floor policy and fall prevention protocol. Call light within reach. Normal [facility] Nursing Noteon 07-07-2024 Nursing Note Report called to [facility]. Normal [facility] Progress Noteon 07-07-2024 Progress Note Nutrition rescreen completed. Chart reviewed. Patient to be monitored and followed by the diet infrastructure technician. Normal [facility] Renal function 2000 panelon 07-07-2024 Albumin [Mass/Vol] 3.7 g/dL Low 3.9-4.9 [facility] Comment on above: Order Comment: Speci men Type: BLOOD SPECIMEN Ordering Facility: [facility] Address: [address] [place] [address] Performed By: #### 2 4362-6 #### [facility] CLIA [id number] [address] [place] [address] [place] Anion gap [Moles/Vol] 12 mmol/L Normal 8-15 [facility] Comment on above: Order Comment: Speci men Type: BLOOD SPECIMEN Ordering Facility: [facility] Address: [address] [place] [address] Performed By: #### 2 4362-6 #### [facility] CLIA [id number] [address] [place] [address] [place] Calcium [Mass/Vol] 9.2 mg/dL Normal 8.5-10.2 [facility] Comment on above: Order Comment: Speci men Type: BLOOD SPECIMEN Ordering Facility: [facility] Address: [address] [place] [address] Performed By: #### 2 4362-6 #### [facility] CLIA [id number] [address] [place] [address] [place] Chloride [Moles/Vol] 107 mmol/L Normal 98-107 [facility] Comment on above: Order Comment: Speci men Type: BLOOD SPECIMEN Ordering Facility: [facility] Address: [address] [place] [address] Performed By: #### 2 4362-6 #### [facility] CLIA [id number] [address] [place] [address] [place] CO2 [Moles/Vol] 20 mmol/L Low 22-30 [facility] Comment on above: Order Comment: Speci men Type: BLOOD SPECIMEN Ordering Facility: [facility] Address: [address] [place] [address] Performed By: #### 2 4362-6 #### [facility] CLIA [id number] [address] [place] [address] [place] Creatinine [Mass/Vol] 0.82 mg/dL Normal 0.58-0.96 [facility] Comment on above: Order Comment: Speci men Type: BLOOD SPECIMEN Ordering Facility: [facility] Address: [address] [place] [address] Performed By: #### 2 4362-6 #### [facility] CLIA [id number] [address] [place] [address] [place] Creatinine and Glomerular filtration rate.predicted panel (S/P/Bld) 71 mL/min/1.73m??? Normal >=60 [facility] Comment on above: Order Comment: Rhina mason Type: BLOOD SPECIMEN Ordering Facility: [facility] Address: [address] [place] [address] Result Comment: Isa mated Glomerular Filtration Rate [...] GFR. Performed By: #### 2 4362-6 #### [facility] CLIA [id number] [address] [place] [address] [place] Glucose [Mass/Vol] 106 mg/dL High 74-99 [facility] Comment on above: Order Comment: Rhina mason Type: BLOOD SPECIMEN Ordering Facility: [facility] Address: [address] [place] [address] Result Comment: The [place] Diabetes Association (ADA) provides guidance for cutoff [...] Standards of Medical Care in Diabetes 2016, [place] [employer]. Diabetes Care. 2016.39(Suppl 1). Performed By: #### 2 4362-6 #### [facility] CLIA [id number] [address] [place] [address] [place] Phosphate [Mass/Vol] 3.0 mg/dL Normal 2.7-4.8 [facility] Comment on above: Order Comment: Speci men Type: BLOOD SPECIMEN Ordering Facility: [facility] Address: [address] [place], [place] [address] Performed By: #### 2 4362-6 #### [facility] CLIA [id number] [address] [place], [place] [address] [place] Potassium [Moles/Vol] 4.3 mmol/L Normal 3.7-5.1 [facility] Comment on above: Order Comment: Speci men Type: BLOOD SPECIMEN Ordering Facility: [facility] Address: [address] [place] [address] Performed By: #### 2 4362-6 #### [facility] CLIA [id number] [address] [place] [address] [place] Sodium [Moles/Vol] 139 mmol/L Normal 136-144 [facility] Comment on above: Order Comment: Speci men Type: BLOOD SPECIMEN Ordering Facility: [facility] Address: [address] [place], [place] [address] Performed By: #### 2 4362-6 #### [facility] CLIA [id number] [address] [place], [place] [address] [place] Urea nitrogen [Mass/Vol] 16 mg/dL Normal 7-21 [facility] Comment on above: Order Comment: Speci men Type: BLOOD SPECIMEN Ordering Facility: [facility] Address: [address] [place], [place] [address] Performed By: #### 2 4362-6 #### [facility] CLIA [id number] [address] [place], [place] [address] [place] [id number] 07-06-2024 [id number] Normal [facility] BASIC METABOLIC PANELon 12-2 0-2023 Anion gap [Moles/Vol] 9 mmol/L Normal 3-13 [facility] Comment on above: Performed By: #### L AB15 ####Flavor Room Worker: VELMA VALADEZ ([id number])[facility] ([facility] [place] [address] Calcium [Mass/Vol] 8.9 mg/dL Normal 8.8-10.[address] [facility] Comment on above: Performed By: #### L AB15 ####Flavor Room Worker: VELMA VALADEZ ([id number])[facility] ([facility])[address] [place] [address] Chloride [Moles/Vol] 113 mmol/L High 98-107 [facility] Comment on above: Performed By: #### L AB15 ####Flavor Room Worker: VELMA VALADEZ ([id number])[facility] ([facility])[address] [place] [address] CO2 [Moles/Vol] 18 mmol/L Low 23-31 [facility] Comment on above: Performed By: #### L AB15 ####Flavor Room Worker: VELMA VALADEZ ([id number])[facility] ([facility])[address] [place] [address] Creatinine [Mass/Vol] 0.86 mg/dL Normal 0.57-1.11 [facility] Comment on above: Performed By: #### L AB15 ####Flavor Room Worker: VELMA VALADEZ ([id number])[facility] ([facility])[address] [place] [address] GLOMERULAR FILTRATION RATE ML/MIN/1.73 SQ M.PREDICTED 66.7 mL/min/1.73m*2 Normal >60.[address] [facility] Comment on above: Result Comment: Calc ulation based on the Chronic Kidney Disease Epidemiology Collaboration (CKD-EPI) equation refit without adjustment for race Performed By: #### L AB15 ####Flavor Room Worker: VELMA VALADEZ ([id number])[facility] ([facility])[address] [place] [address] [place] Glucose [Mass/Vol] 74 mg/dL Low 82-[address] [facility] Comment on above: Performed By: #### L AB15 ####Flavor Room Worker: VELMA VALADEZ ([id number])[facility] ([facility])[address] [place] [address] Potassium [Moles/Vol] 4.5 mmol/L Normal 3.5-5.1 [facility] Comment on above: Result Comment: [facility] potassium values may be up to 0.5 mmol/L lower than serum values. Performed By: #### L AB15 ####Flavor Room Worker: VELMA VALADEZ ([id number])[facility] ([facility])[address] [place] [address] Sodium [Moles/Vol] 140 mmol/L Normal 136-[address] [facility] Comment on above: Performed By: #### L AB15 ####Flavor Room Worker: VELMA VALADEZ ([id number])[facility] ([facility])[address] [place] [address] Urea nitrogen [Mass/Vol] 16 mg/dL Normal 9-[address] [facility] Comment on above: Performed By: #### L AB15 ####Flavor Room Worker: VELMA VALADEZ ([id number])[facility] ([facility])[address] [place] [address] Basic metabolic 1998 panelon 07-06-2024 Anion gap [Moles/Vol] 9 mmol/L 3 - 13 mmol/L [facility] Calcium [Mass/Vol] 8.9 mg/dL 8.8 - 10. 0 mg/dL [facility] Chloride [Moles/Vol] 113 mmol/L High 98 - 10 7 mmol/L [facility] CO2 [Moles/Vol] 18 mmol/L Low 23 - 31 mmol/L [facility] Creatinine [Mass/Vol] 0.86 mg/dL 0.57 - 1.11 mg/dL [facility] GFR/1.73 sq M.predicted (S/P/Bld) [Vol rate/Area] 66.7 mL/min - PINF [facility] Comment on above: Calculation based on the Chronic Kidney Disease Epidemiology Collaboration (CKD-EPI) equation refit without adjustment for race Glucose [Mass/Vol] 74 mg/dL Low 82 - 115 mg/dL [facility] Interpretation and review of laboratory results Abnormal [facility] Potassium [Moles/Vol] 4.5 mmol/L 3.5 - 5.1 mmol/L [facility] Comment on above: Plasma potassium chris ues may be up to 0.5 mmol/L lower than serum values. Sodium [Moles/Vol] 140 mmol/L 136 - 145 mmol/L [facility] Urea nitrogen [Mass/Vol] 16 mg/dL 9 - 23 mg/dL [facility] CBC W Auto Differential pane l (Bld)Ordered By: Daija Doran on 07-06-2024 Basophils (Bld) [#/Vol] 0 10*3/uL 0.0 - 0.2 10*3/uL [facility] Basophils/100 WBC (Bld) 0.5 % 0.0 - 2.0 % [facility] Eosinophils (Bld) [#/Vol] 0 10*3/uL 0.0 - 0.5 10*3/uL [facility] Eosinophils/100 WBC (Bld) 0.3 % 0.0 - 6.0 % [facility] Erythrocyte distribution width (RBC) [Ratio] 17.8 % High 11.5 - 15.0 % [facility] Hematocrit (Bld) [Volume fraction] 31.8 % Low 35.0 - 47.0 % [facility] Hemoglobin (Bld) [Mass/Vol] 9.7 g/dL Low 11.7 - 16.0 g/dL [facility] Immature granulocytes (Bld) [#/Vol] 0 10*3/uL NINF - 0.1 10*3/uL [facility] Immature granulocytes/100 WBC (Bld) 0.3 % 0.0 - 2.0 % [facility] Interpretation and review of laboratory results Abnormal [facility] Lymphocytes (Bld) [#/Vol] 1.2 10*3/uL 1.0 - 4.3 10*3/uL [facility] Lymphocytes/100 WBC (Bld) 18.9 % 15.0 - 45.0 % [facility] MCH (RBC) [Entitic mass] 26.4 pg 26.0 - 34.0 pg [facility] MCHC (RBC) [Mass/Vol] 30.5 % 30.5 - 36.0 % [facility] MCV (RBC) [Entitic vol] 86.4 fL 77.0 - 99.0 fL [facility] Monocytes (Bld) [#/Vol] 0.5 10*3/uL 0.0 - 0.9 10*3/uL [facility] Monocytes/100 WBC (Bld) 8.2 % 5.0 - 13.0 % [facility] Neutrophils (Bld) [#/Vol] 4.4 10*3/uL 1.8 - 7.5 10*3/uL [facility] Neutrophils/100 WBC (Bld) 71.8 % 38.0 - 82.0 % [facility] Nucleated RBC/100 WBC (Bld) [Ratio] 0 % [facility] Platelet mean volume (Bld) [Entitic vol] 10.9 fL 9.0 - 12.7 fL [facility] Platelets (Bld) [#/Vol] 278 10*3/uL 140 - 440 10*3/uL [facility] RBC (Bld) [#/Vol] 3.68 10*6/uL Low 3.80 - 5.2 0 10*6/uL [facility] WBC (Bld) [#/Vol] 6.1 10*3/uL 3.6 - 10.7 10*3/uL [facility] CBC WITH AUTO DIFFERENTIALon 07-06-2024 Basophils (Bld) [#/Vol] 0.0 10*3/uL Normal 0.0-0.2 [facility] Comment on above: Performed By: #### L [id number] ####Flavor Room Worker: VELMA VALADEZ ([id number])[facility] ([facility])[address] [place] [address] Basophils/100 WBC (Bld) 0.5 % Normal 0.0-2.0 [facility] Comment on above: Performed By: #### L [id number] ####Flavor Room Worker: VELMA VALADEZ ([id number])[facility] ([facility])[address] [place] [address] Eosinophils (Bld) [#/Vol] 0.0 10*3/uL Normal 0.0-0.5 [facility] Comment on above: Performed By: #### L [id number] ####Flavor Room Worker: VELMA VALADEZ ([id number])[facility])[address] [place] [address] Eosinophils/100 WBC (Bld) 0.3 % Normal 0.0-6.0 [facility] Comment on above: Performed By: #### L [id number] ####Flavor Room Worker: VELMA VALADEZ ([id number])[facility])[address] [place] [address] Erythrocyte distribution width (RBC) [Ratio] 17.8 % High 11.5-15.0 [facility] Comment on above: Performed By: #### L [id number] ####Flavor Room Worker: VELMA VALADEZ ([id number])[address] Hematocrit (Bld) [Volume fraction] 31.8 % Low 35.0-47.0 [facility] Comment on above: Performed By: #### L [id number] ####Flavor Room Worker: VELMA VALADEZ ([id number])[address] Hemoglobin (Bld) [Mass/Vol] 9.7 g/dL Low 11.7-16.0 [facility] Comment on above: Performed By: #### L [id number] ####Flavor Room Worker: VELMA VALADEZ ([id number])[facility])[address] [place] [address] IMMATURE GRANS % 0.3 % Normal 0.0-2.0 [facility] Comment on above: Performed By: #### L [id number] ####Flavor Room Worker: VELMA VALADEZ ([id number])[address] IMMATURE GRANS ABSOLUTE 0.0 10*3/uL Normal <0.1 [facility] Comment on above: Performed By: #### L [id number] ####Flavor Room Worker: VELMA VALADEZ ([id number])[facility])[address] [place] [address] Lymphocytes (Bld) [#/Vol] 1.2 10*3/uL Normal 1.0-4.3 [facility] Comment on above: Performed By: #### L [id number] ####Flavor Room Worker: VELMA VALADEZ ([id number])[facility])[address] [place] [address] Lymphocytes/100 WBC (Bld) 18.9 % Normal 15.0-45.0 [facility] Comment on above: Performed By: #### L [id number] ####Flavor Room Worker: VELMA VALADEZ ([id number])[facility])[address] [place] [address] MCH (RBC) [Entitic mass] 26.4 pg Normal 26.0-34.0 [facility] Comment on above: Performed By: #### L [id number] ####Flavor Room Worker: VELMA VALADEZ ([id number])[facility])[address] [place] [address] MCHC 30.5 % Normal 30.5-36.0 [facility] Comment on above: Performed By: #### L [id number] ####Flavor Room Worker: VELMA VALADEZ ([id number])[facility])[address] [place] [address] MCV (RBC) [Entitic vol] 86.4 fL Normal 77.0-99.0 [facility] Comment on above: Performed By: #### L [id number] ####Flavor Room Worker: VELMA VALADEZ ([id number])[facility])[address] [place] [address] Monocytes (Bld) [#/Vol] 0.5 10*3/uL Normal 0.0-0.9 [facility] Comment on above: Performed By: #### L [id number] ####Flavor Room Worker: VELMA VALADEZ ([id number])[facility])[address] [place] [address] Monocytes/100 WBC (Bld) 8.2 % Normal 5.0-13.0 [facility] Comment on above: Performed By: #### L [id number] ####Flavor Room Worker: VELMA VALADEZ ([id number])[facility] ([facility])[address] [place] [address] NEUTROPHILS ABSOLUTE 4.4 10*3/uL Normal 1.8-7.5 [facility] Comment on above: Performed By: #### L [id number] ####Flavor Room Worker: VELMA VALADEZ ([id number])[facility] ([facility])[address] [place] [address] Neutrophils/100 WBC (Bld) 71.8 % Normal 38.0-82.0 [facility] Comment on above: Performed By: #### L [id number] ####Flavor Room Worker: VELMA VALADEZ ([id number])[facility] ([facility])[address] [place] [address] NRBC 0.0 /100 WBCs Normal 0.0-2.0 [facility] Comment on above: Performed By: #### L [id number] ####Flavor Room Worker: VELMA VALADEZ ([id number])[facility] ([facility])[address] [place] [address] Platelet mean volume (Bld) [Entitic vol] 10.9 fL Normal 9.0-12.7 [facility] Comment on above: Performed By: #### L [id number] ####Flavor Room Worker: VELMA VALADEZ ([id number])[facility] ([facility])[address] [place] [address] Platelets (Bld) [#/Vol] 278 10*3/uL Normal 140-440 [facility] Comment on above: Performed By: #### L [id number] ####Flavor Room Worker: VELMA VALADEZ ([id number])[facility] ([facility] [facility])[address] [place] [address] RBC (Bld) [#/Vol] 3.68 10*6/uL Low 3.80-5.20 [facility] Comment on above: Performed By: #### L [id number] ####Flavor Room Worker: VELMA VALADEZ ([id number])[facility] ([facility])[address] [place] [address] WBC (Bld) [#/Vol] 6.1 10*3/uL Normal 3.6-10.7 [facility] Comment on above: Performed By: #### L [id number] ####Flavor Room Worker: VELMA VALADEZ ([id number])[facility] ([facility])[address] [place] [address] 07-06-2024 CNPN Telephone (OPHTMN) MEL GUADARRAMA ([id number]) 1940 [facility] Date Time Provider Department 07/06/24 RYAN ELIZONDO During your visit today, we recorded the following information about you: Ryan Elizondo MD 07/06/2024 2:42 PM Signed TELEPHONE ENCOUNTER 07/06/2024 Patient with recent stroke and admitted to [facility] where she was noted to have elevated IOP with retinal detachment of the right eye by consult meat boner. 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 Was contacted about potential transfer to [facility] to be evaluated by retinal specialist. Discussed [...] as needed for wheezing/shortness of breath. - cbcugdfzkqw-gdptzwwvw-z ilanter (TRELEGY ELLIPTA) 100-62.5-25 mcg inhalation powder [...] RYAN ELIZONDO on 07/06/24 Normal [facility] [place] Consulton 07-06-2024 Consult Normal [facility] Nursing Noteon 07-06-2024 Nursing Note This RN called Protective Services to try and locate pts lost glasses from 07/05/2024. Glasses that match the description are in lost and found. Will attempt to see if glasses are a match. Normal [facility] Progress Noteon 07-06-2024 Progress Note Normal [facility] Progress Note Normal [facility] CBC (HEMOGRAM)on 07-05-2024 Erythrocyte distribution width (RBC) [Ratio] 17.2 % High 11.5-15.[address] [facility] Comment on above: Performed By: #### L [id number] ####Flavor Room Worker: VELMA VALADEZ ([id number])[address] Hematocrit (Bld) [Volume fraction] 32.8 % Low 35.0-47.[address] [facility] Comment on above: Performed By: #### L [id number] ####Flavor Room Worker: VELMA VALADEZ ([phone])[facility])[address] [place] [address] Hemoglobin (Bld) [Mass/Vol] 10.6 g/dL Low 11.7-16.[address] [facility] Comment on above: Performed By: #### L [id number] ####Flavor Room Worker: VELMA VALADEZ ([phone])[facility])[address] [place] [address] MCH (RBC) [Entitic mass] 26.4 pg Normal 26.0-34.0 [facility] Comment on above: Performed By: #### L [id number] ####Flavor Room Worker: VELMA VALADEZ ([id number])[facility])[address] [place] [address] MCHC 32.3 % Normal 30.5-36.0 [facility] Comment on above: Performed By: #### L [id number] ####Flavor Room Worker: VELMA VALADEZ ([id number])[facility] ([facility])[address] [place] [address] MCV (RBC) [Entitic vol] 81.8 fL Normal 77.0-99.0 [facility] Comment on above: Performed By: #### L [id number] ####Flavor Room Worker: VELMA VALADEZ ([id number])[facility])[address] [place] [address] Platelet mean volume (Bld) [Entitic vol] 9.6 fL Normal 9.0-12.[address] [facility] Comment on above: Performed By: #### L [id number] ####Flavor Room Worker: VELMA VALADEZ ([id number])[facility] ([facility])[address] [place] [address] Platelets (Bld) [#/Vol] 349 10*3/uL Normal 140-[address] [facility] Comment on above: Performed By: #### L [id number] ####Flavor Room Worker: VELMA VALADEZ ([id number])[facility])[address] [place] [address] RBC (Bld) [#/Vol] 4.01 10*6/uL Normal 3.80-5.20 [facility] Comment on above: Performed By: #### L [id number] ####Flavor Room Worker: VELMA VALADEZ ([id number])[facility])[address] [place] [address] WBC (Bld) [#/Vol] 5.5 10*3/uL Normal 3.6-10.[address] [facility] Comment on above: Performed By: #### L [id number] ####Flavor Room Worker: VELMA VALADEZ ([id number])[facility] ([facility])[address] [place] [address] CBC panel Auto (Bld)on 07-05 Erythrocyte distribution width (RBC) [Ratio] 17.2 % High 11.5 - 15.0 % [facility] Hematocrit (Bld) [Volume fraction] 32.8 % Low 35.0 - 47.0 % [facility] Hemoglobin (Bld) [Mass/Vol] 10.6 g/dL Low 11.7 - 16.0 g/dL [facility] Interpretation and review of laboratory results Abnormal [facility] MCH (RBC) [Entitic mass] 26.4 pg 26.0 - 34.0 pg [facility] MCHC (RBC) [Mass/Vol] 32.3 % 30.5 - 36.0 % [facility] MCV (RBC) [Entitic vol] 81.8 fL 77.0 - 99.0 fL [facility] Platelet mean volume (Bld) [Entitic vol] 9.6 fL 9.0 - 12.7 fL [facility] Platelets (Bld) [#/Vol] 349 10*3/uL 140 - 440 10*3/uL [facility] RBC (Bld) [#/Vol] 4.01 10*6/uL 3.80 - 5.2 0 10*6/uL [facility] WBC (Bld) [#/Vol] 5.5 10*3/uL 3.6 - 10.7 10*3/uL [facility] COMPREHENSIVE METABOLIC PANE Gilberto 07-05-2024 Albumin [Mass/Vol] 3.6 g/dL Normal 3.4-4.[address] [facility] Comment on above: Performed By: #### L [id number], [id number] ####Flavor Room Worker: VELMA VALADEZ ([id number])[facility] ([facility])[address] [place] [address] ALP [Catalytic activity/Vol] 94 U/L Normal 40-[address] [facility] Comment on above: Performed By: #### L [id number], [id number] ####Flavor Room Worker: VELMA [id number])[facility] ([facility] [place] [address] [place] ALT [Catalytic activity/Vol] 23 U/L Normal <30 [facility] Comment on above: Performed By: #### L [id number], LAB17 ####Flavor Room Worker: VELMA VALADEZ ([id number])[facility] ([facility])[address] [place] [address] Anion gap [Moles/Vol] 10 mmol/L Normal 3-13 [facility] Comment on above: Performed By: #### L [id number], [id number] ####Flavor Room Worker: VELMA VALADEZ ([id number])[facility] ([facility])[address] [place] [address] AST [Catalytic activity/Vol] 26 U/L Normal <34 [facility] Comment on above: Performed By: #### L [id number], [id number] ####Flavor Room Worker: VELMA VALADEZ ([id number])[facility] ([facility])[address] [place] [address] Bilirubin [Mass/Vol] 0.7 mg/dL Normal <1.2 [facility] Comment on above: Performed By: #### L [id number], [id number] ####Flavor Room Worker: VELMA VALADEZ ([id number])[facility] ([facility])[address] [place] [address] Calcium [Mass/Vol] 9.2 mg/dL Normal 8.8-10.0 [facility] Comment on above: Performed By: #### L [id number], [id number] ####Flavor Room Worker: VELMA VALADEZ ([id number])[facility] ([facility])[address] [place] [address] [place] Chloride [Moles/Vol] 107 mmol/L Normal 98-107 [facility] Comment on above: Performed By: #### L [id number], [id number] ####Flavor Room Worker: VELMA VALADEZ ([id number])[facility] ([facility])[address] [place] [address] [place] CO2 [Moles/Vol] 22 mmol/L Low 23-31 [facility] Comment on above: Performed By: #### L [id number], LAB17 ####Flavor Room Worker: VELMA VALADEZ ([id number])[facility])[address] [place] [address] Creatinine [Mass/Vol] 0.82 mg/dL Normal 0.57-1.11 [facility] Comment on above: Performed By: #### L [id number], LAB17 ####Flavor Room Worker: VELMA VALADEZ ([id number])[facility])[address] [place] [address] GLOMERULAR FILTRATION RATE ML/MIN/1.73 SQ M.PREDICTED 70.6 mL/min/1.73m*2 Normal >60.[address] [facility] Comment on above: Result Comment: Calc ulation based on the Chronic Kidney Disease Epidemiology Collaboration (CKD-EPI) equation refit without adjustment for race Performed By: #### L [id number], [id number] ####Flavor Room Worker: VELMA VALADEZ ([id number])[facility] ([facility])[address] [place] [address] Glucose [Mass/Vol] 118 mg/dL High 82-[address] [facility] Comment on above: Performed By: #### L [id number], LAB17 ####Flavor Room Worker: VELMA VALADEZ ([id number])[facility])[address] [place] [address] Potassium [Moles/Vol] 4.3 mmol/L Normal 3.5-5.1 [facility] Comment on above: Result Comment: [facility] potassium values may be up to 0.5 mmol/L lower than serum values. Performed By: #### L [id number], LAB17 ####Flavor Room Worker: VELMA VALADEZ ([id number])[facility])[address] [place] [address] Protein [Mass/Vol] 7.0 g/dL Normal 6.4-8.[address] [facility] Comment on above: Performed By: #### L [id number], LAB17 ####Flavor Room Worker: VELMA VALADEZ ([id number])[address] Sodium [Moles/Vol] 139 mmol/L Normal 136-[address] [facility] Comment on above: Performed By: #### L [id number], LAB17 ####Flavor Room Worker: VELMA VALADEZ ([id number])[address] Urea nitrogen [Mass/Vol] 13 mg/dL Normal 9-[address] [facility] Comment on above: Performed By: #### L [id number], LAB17 ####Flavor Room Worker: VELMA VALADEZ ([id number])[address] HEAD NECK ANGIO W AND WO IV CONTRASTon 07-05-2024 CT HEAD NECK ANGIO W AND WO IV CONTRAST Normal [facility] CT HEAD WO IV CONTRASTon CT HEAD WO IV CONTRAST Normal [facility] CT Head WO contraston 2023 Patient Name: MEL CARVER RD : 1940 [facility]#: [id number] Exam Date/Time: 07/05/2024 04:36 Procedure: CT HEAD [...] 07/05/2024 Patient Name: MEL POP : 1940 [facility]#: [id number] Exam Date/Time: 07/05/2024 04:36 Procedure: CT HEAD [...] acute consolidative process (more content not included)... [facility] CT PERFUSIONon 07-05-2024 CT PERFUSION Normal [facility] CTA Head vessels and Neck ve ssels WO and W contrast Cheryl 07-05-2024 Patient Name: MEL CARVER RD : 1940 [facility]#: [id number] Exam Date/Time: 07/05/2024 04:36 Procedure: CT HEAD [...] 07/05/2024 Patient Name: MEL POP : 1940 [facility]#: [id number] Exam Date/Time: 07/05/2024 04:36 Procedure: CT HEAD [...] no acute conso (more content not included)... [facility] metabolic 1998 panelon 07-05-2024 Albumin [Mass/Vol] 3.6 g/dL 3.4 - 4.8 g/dL [facility] ALP [Catalytic activity/Vol] 94 U/L 40 - 150 U/L [facility] ALT [Catalytic activity/Vol] 23 U/L NINF - 30 U/L [facility] Anion gap [Moles/Vol] 10 mmol/L 3 - 13 mmol/L [facility] AST [Catalytic activity/Vol] 26 U/L NINF - 34 U/L [facility] Bilirubin [Mass/Vol] 0.7 mg/dL NINF - 1.2 mg/dL [facility] Calcium [Mass/Vol] 9.2 mg/dL 8.8 - 10. 0 mg/dL [facility] Chloride [Moles/Vol] 107 mmol/L 98 - 10 7 mmol/L [facility] CO2 [Moles/Vol] 22 mmol/L Low 23 - 31 mmol/L [facility] Creatinine [Mass/Vol] 0.82 mg/dL 0.57 - 1.11 mg/dL [facility] GFR/1.73 sq M.predicted (S/P/Bld) [Vol rate/Area] 70.6 mL/min - PINF [facility] Comment on above: Calculation based on the Chronic Kidney Disease Epidemiology Collaboration (CKD-EPI) equation refit without adjustment for race Glucose [Mass/Vol] 118 mg/dL High 82 - 115 mg/dL [facility] Interpretation and review of laboratory results Abnormal [facility] Potassium [Moles/Vol] 4.3 mmol/L 3.5 - 5.1 mmol/L [facility] Comment on above: Plasma potassium chris ues may be up to 0.5 mmol/L lower than serum values. Protein [Mass/Vol] 7 g/dL 6.4 - 8.3 g/dL [facility] Sodium [Moles/Vol] 139 mmol/L 136 - 145 mmol/L [facility] Urea nitrogen [Mass/Vol] 13 mg/dL 9 - 23 mg/dL [facility] Consulton 07-05-2024 Consult Normal [facility] Consult Normal [facility] Consult Normal [facility] Consult Normal [facility] ECG 12-LEADon 07-05-2024 ECG 12-LEAD IMPRESSION: Atrial fibrillation Electronically Signed On 07-05-2024 12:39:21 EST by Jhonatan Hernandez [facility] ED Nursing Noteon 07-05-[address] Carlson at bedside. Normal [facility] ED Nursing Note Provider notified of patient request for pain meds. Normal [facility] ED Nursing Note Dr. Carlson at bedside [facility] ED Nursing Note Patient is returning back to room 32 at this time with Jose, Wil. [facility] ED Nursing Note Pt emergently going to eye clinic. Pt being transported in wheelchair with trauma float RADHA Hinkle and Maritza RN Pt being transported on zoll monitor and acls kit. Normal [facility] ED Nursing Note Ophthalmology at bedside [facility] ED Nursing Note Report to Maritza FRAGA [facility] ED Provider Noteon ED Provider Note [facility] HEMOGLOBIN A1Con 07-05-2024 Glucose [Mass/Vol] 120 mg/dL [facility] Comment on above: Result Comment: BUBBA Garcia COMMENTS:HbA1c values of 5.7-6.4 percent indicate an increased risk for developing diabetes mellitus. HbA1c values greater than or equal to 6.5 percent are diagnostic of diabetes mellitus. For diagnosis of diabetes in individuals without unequivocal hyperglycemia, results should be confirmed by repeat testing. Performed By: #### L [id number] ####Flavor Room Worker: VELMA VALADEZ ([id number])[facility] ([facility])[address] [place] [address] HEMOGLOBIN A1C 5.8 %HbA1C High <5.7 [facility] Comment on above: Result Comment: Norm al less than 5.7%Prediabetes 5.7% to 6.4%Diabetes 6.5% or higher--HgbA1C levels may not be accurate in patients who have renal disease, received recent blood transfusions, are anemic, or who have dyshemoglobinemia. Performed By: #### L [id number] ####Flavor Room Worker: VELMA VALADEZ ([id number])[facility] ([facility])[address] [place] [address] HIGH SENSITIVITY TROPONIN, S ERIAL BASELINEon 07-05-2024 TROPONIN HIGH SENSITIVITY BASELINE 14 ng/L Normal <=14 [facility] Comment on above: Performed By: #### L [id number] ####Flavor Room Worker: VELMA VALADEZ ([id number])[facility] ([facility])[address] [place] [address] HIGH SENSITIVITY TROPONIN, S ERIAL, SECOND TESTon 07-05-2024 TROPONIN HS DELTA, BASELINE TO SECOND -5 ng/L Normal <=[address] [facility] Comment on above: Result Comment: This [...] further clinical guidance. Performed By: #### L [id number], LAB17 ####Flavor Room Worker: VELMA VALADEZ ([id number])[facility] ([facility])[address] [place] [address] TROPONIN HS, SERIAL REFLEX, TEST TWO 9 ng/L Normal <=[address] [facility] Comment on above: Performed By: #### L [id number], LAB17 ####Flavor Room Worker: VELMA VALADEZ ([id number])[facility] ([facility])[address] [place] [address] Laboratory - Chemistry and C hemistry - challengeon 07-05-2024 Average glucose Estimated from glycated hemoglobin (Bld) [Mass/Vol] 120 mg/dL [facility] Anion gap (Bld) [Moles/Vol] 8 mmol/L 3.00 - 13.00 [facility] Calcium.ionized (Bld) [Moles/Vol] 4.5 mg/dl 4.30 - 5.20 mg/dl [facility] Comment on above: Performed by [employer] CLIA ID:[id number] [place], [place] Device: [id number] Percussion Instrument Repairer ID: [id number] Chloride [Moles/Vol] 108 mmol/L 98 - 11 4 mmol/L [facility] CO2 [Moles/Vol] 23 mmol/L 21 - 29 mmol/L [facility] Creatinine [Mass/Vol] 0.9 mg/dL 0.6 - 1.3 mg/dL [facility] GFR/1.73 sq M.predicted CKD-EPI (S/P/Bld) [Vol rate/Area] 63.2 [facility] Comment on above: KDIGO guidelines pro [...] 104 mg/dL High 70 - 100 mg/dL [facility] Potassium [Moles/Vol] 4.5 mmol/L 3.4 - 5.1 mmol/L [facility] Sodium [Moles/Vol] 139 mmol/L 133 - 145 mmol/L [facility] Urea (Bld) [Mass/Vol] 14 mg/dL 4 - 22 mg/dL [facility] Glucose [Mass/Vol] 104 mg/dL High 70 - 100 mg/dL [facility] Laboratory - Coagulationon 1 09-05-2023 aPTT Coag (PPP) [Time] 30.4 s 20.0 - 30.5 s [facility] INR Coag (PPP) [Relative time] 1 {INR} 0.9 - 1.1 [facility] Comment on above: Recommended Anticoag ulant [...] 11.7 s 9.0 - 1 2.0 s [facility] Laboratory - Hematology and Cell countson 07-05-2024 HbA1c (Bld) [Mass fraction] 5.8 % High NINF [facility] Comment on above: Normal less than [...] MD Electronically Signed Date/Time: 07/05/2024 12:13 PM [facility] RADIOLOGY [facility] Patient Name: MEL CARVER RD [facility] 1940 [id number] Exam Date/Time: 07/05/2024 11:45 Procedure: MR BRAIN [...] 07/05/2024 Patient Name: MEL POP : 1940 [facility]#: [id number] Exam Date/Time: 07/05/2024 11:45 Procedure: MR BRAIN [...] Electronically Signed Date/Time: 07/05/2024 12:13 PM EST [facility] Radiology Study [facility]narrative[facility] WO contrastOrdered By: Ming Fry on 07-05-2024 [facility] Work Phone: No Panel Informationon 07-05 Heart Rate 59 bpm [facility] P [place] 0 degrees [facility] [place] Interval 0 ms [facility] QRS [place] 37 degrees [facility] QRSD Interval 98 ms [facility] h QT Interval 423 ms [facility] QTC Interval 418 ms [facility] T Wave [place] 29 degrees [facility] Atrial fibrillation Electronically Signed On 07-05-2024 12:39:21 EST by Jhonatan Hernandez CV Jhonatan Abdi MD - 07/05/2024 IMPRESSION: Atrial fibrillation Electronically Signed On 07-05-2024 12:39:21 EST by Jhonatan Hernandez [facility] Interpretation and review of laboratory results Abnormal [facility] HbA1c values of 5.7- 6.4 percent indicate an increased risk for developing diabetes mellitus. HbA1c values greater than or equal to 6.5 percent are diagnostic of diabetes mellitus. For diagnosis of diabetes in individuals without unequivocal hyperglycemia, results should be confirmed by repeat testing. [facility] Troponin HS Delta, Baseline to Second -5 ng/L NINF - 2 ng/L [facility] Comment on above: This specimen was [...] Second 9 ng/L NINF - 14 ng/L [facility] 1. No acute intracranial hemorrhage [...] Patient Name: MEL CARVER RD : 1940 [facility]#: [id number] Exam Date/Time: 07/05/2024 04:36 Procedure: CT PERFUSION [...] not included)... [facility], Cirilo Khalil MD - 07/05/2024 [facility] Name: MEL POP : 1940 [id number] Exam Date/Time: 07/05/2024 04:36 Procedure: CT PERFUSION [...] process or suspici (more content not included)... [facility] Interpretation and review of laboratory results Normal [facility] Troponin HS, Serial Baseline 14 ng/L NINF - 14 ng/L [facility] Interpretation and review of laboratory results Normal [facility] Interpretation and review of laboratory results Abnormal [facility] Performed by: [facility], [address] [place] [address] CLIA ID: [id number] [facility] Radiology Study observation (narrative) [facility] Interpretation and review of laboratory results Abnormal [facility] Performed by: [facility], [address] [place] [address]: [id number] [facility] Panel InformationOrdered By: Cirilo Ray on 07-05-2024 [facility] Work Phone: PROTIME AND APTTon aPTT Coag (Bld) [Time] 30.4 s Normal 20.0-30.5 [facility] Comment on above: Performed By: #### L [id number] ####Flavor Room Worker: VELMA VALADEZ ([id number])[facility] ([facility])[address] [place] [address] INR Coag (PPP) [Relative time] 1.0 {INR} Normal 0.9-1.[address] [facility] Comment on above: Result Comment: Timothy [...] prevent Myocardial Infarction Performed By: #### L [id number] ####Flavor Room Worker: VELMA VALADEZ ([id number])[facility] ([facility])[address] [place] [address] PT Coag (PPP) [Time] 11.7 s Normal 9.0-12.0 [facility] Comment on above: Performed By: #### L [id number] ####Flavor Room Worker: VELMA VALADEZ ([id number])[facility] ([facility])[address] [place] [address] Progress Noteon 07-05-2024 Progress Note Normal [facility] CBC panel Auto (Bld)on 07-02 Erythrocyte distribution width (RBC) [Ratio] 16.9 % High 11.5 - 15.0 % [facility] Hematocrit (Bld) [Volume fraction] 29.6 % Low 36.0 - 46.0 % [facility] Hemoglobin (Bld) [Mass/Vol] 9.3 g/dL Low 11.5 - 15.5 g/dL [facility] Interpretation and review of laboratory results Abnormal [facility] MCH (RBC) [Entitic mass] 26.7 pg 26.0 - 34.0 pg [facility] MCHC (RBC) [Mass/Vol] 31.4 g/dL 30.5 - 36.0 g/dL [facility] MCV (RBC) [Entitic vol] 85.1 fL 80.0 - 100.0 fL [facility] Nucleated RBC (Bld) [#/Vol] NINF [facility] Platelet mean volume (Bld) [Entitic vol] 10.2 fL 9.0 - 12.7 fL [facility] Platelets (Bld) [#/Vol] 324 10*3/uL [facility] RBC (Bld) [#/Vol] 3.48 10*6/uL Low 3.90 - 5.2 0 m/uL [facility] WBC (Bld) [#/Vol] 5.12 10*3/uL [facility] Erythrocyte distribution width (RBC) [Ratio] 16.9 % High 11.5-15.0 [facility] Comment on above: Order Comment: Speci men Type: BLOOD SPECIMENOrdering Facility: [facility] Address: [address] [place] [address] Performed By: #### 5 8410-2 ####[facility] LABORATORYCLIA [id number] [address] [place] Hematocrit (Bld) [Volume fraction] 29.6 % Low 36.0-46.0 [facility] Comment on above: Order Comment: Speci men Type: BLOOD SPECIMENOrdering Facility: [facility] Address: [address] [place] [address] Performed By: #### 5 8410-2 ####[facility] LABORATORYCLIA [id number] [place] [address] [place] Hemoglobin (Bld) [Mass/Vol] 9.3 g/dL Low 11.5-15.5 [facility] Comment on above: Order Comment: Speci men Type: BLOOD SPECIMENOrdering Facility: [facility] Address: [address] [place] [address] Performed By: #### 5 8410-2 ####[facility] LABORATORYCLIA [id number] [address] MCH (RBC) [Entitic mass] 26.7 pg Normal 26.0-34.0 [facility] Comment on above: Order Comment: Speci men Type: BLOOD SPECIMENOrdering Facility: [facility] Address: [address] [place] [address] Performed By: #### 5 8410-2 ####[facility] LABORATORYCLIA [id number] [address] MCHC (RBC) [Mass/Vol] 31.4 g/dL Normal 30.5-36.0 [facility] Comment on above: Order Comment: Speci men Type: BLOOD SPECIMENOrdering Facility: [facility] Address: [address] [place] [address] Performed By: #### 5 8410-2 ####M[facility]GAN LABORATORYCLIA [id number] [address] [place] MCV (RBC) [Entitic vol] 85.1 fL Normal 80.0-100.0 [facility] Comment on above: Order Comment: Speci men Type: BLOOD SPECIMENOrdering Facility: [facility] Address: [address] [place] [address] Performed By: #### 5 8410-2 ####[facility] LABORATORYCLIA [id number] [address] [place] Nucleated RBC (Bld) [#/Vol] 10*3/uL Normal <0.01 [facility] Comment on above: Order Comment: Speci men Type: BLOOD SPECIMENOrdering Facility: [facility] Address: [address] [place] [address] Performed By: #### 5 8410-2 ####[facility] LABORATORYCLIA [id number] [address] Platelet mean volume (Bld) [Entitic vol] 10.2 fL Normal 9.0-12.7 [facility] Comment on above: Order Comment: Speci men Type: BLOOD SPECIMENOrdering Facility: [facility] Address: [address] [place] [address] Performed By: #### 5 8410-2 ####MORGAN LABORATORYCLIA [id number] [address] [place] Platelets (Bld) [#/Vol] 324 10*3/uL Normal 150-400 [facility] Comment on above: Order Comment: Speci men Type: BLOOD SPECIMENOrdering Facility: [facility] Address: [address] [place] [address] Performed By: #### 5 8410-2 ####MORGAN LABORATORYCLIA [id number] [place] [address] [place] RBC (Bld) [#/Vol] 3.48 10*6/uL Low 3.90-5.20 [facility] Comment on above: Order Comment: Speci men Type: BLOOD SPECIMENOrdering Facility: [facility] Address: [address] [place] [address] Performed By: #### 5 8410-2 ####MORGAN LABORATORYCLIA [id number] [address] [place] WBC (Bld) [#/Vol] 5.12 10*3/uL Normal 3.70-11.00 [facility] Comment on above: Order Comment: Speci men Type: BLOOD SPECIMENOrdering Facility: [facility] Address: [address] [place] [address] Performed By: #### 5 8410-2 ####MORGAN LABORATORYCLIA [id number] [place] [id number] [facility] [place] CBC panel Auto (Bld)on 06-28 Erythrocyte distribution width (RBC) [Ratio] 16.6 % High 11.5 - 15.0 % [facility] Hematocrit (Bld) [Volume fraction] 28.8 % Low 36.0 - 46.0 % [facility] Hemoglobin (Bld) [Mass/Vol] 9.0 g/dL Low 11.5 - 15.5 g/dL [facility] Interpretation and review of laboratory results Abnormal [facility] MCH (RBC) [Entitic mass] 26.8 pg 26.0 - 34.0 pg [facility] MCHC (RBC) [Mass/Vol] 31.3 g/dL 30.5 - 36.0 g/dL [facility] MCV (RBC) [Entitic vol] 85.7 fL 80.0 - 100.0 fL [facility] Nucleated RBC (Bld) [#/Vol] NINF [facility] Platelet mean volume (Bld) [Entitic vol] 10.5 fL 9.0 - 12.7 fL [facility] Platelets (Bld) [#/Vol] 316 10*3/uL [facility] RBC (Bld) [#/Vol] 3.36 10*6/uL Low 3.90 - 5.2 0 m/uL [facility] WBC (Bld) [#/Vol] 5.27 10*3/uL [facility] Erythrocyte distribution width (RBC) [Ratio] 16.6 % High 11.5-15.0 [facility] Comment on above: Order Comment: Samiri isabella Type: BLOOD SPECIMEN [facility] Address: [address] [place] [address] Performed By: #### 2 276-4 #### [facility] CLIA [id number] [address] [place] [address] [place] Hematocrit (Bld) [Volume fraction] 28.8 % Low 36.0-46.0 [facility] Comment on above: Order Comment: Rhina mason Type: BLOOD SPECIMEN [facility] Address: [address] [place] [address] Performed By: #### 2 276-4 #### [facility] CLIA [id number] [address] [place] [address] [place] Hemoglobin (Bld) [Mass/Vol] 9.0 g/dL Low 11.5-15.5 [facility] Comment on above: Order Comment: Rhina mason Type: BLOOD SPECIMEN [facility] Address: [address] [place] [address] Performed By: #### 2 276-4 #### [facility] CLIA [id number] [address] [place] [address] [place] MCH (RBC) [Entitic mass] 26.8 pg Normal 26.0-34.0 [facility] Comment on above: Order Comment: Speci men Type: BLOOD SPECIMEN [facility] Address: [address] [place] [address] Performed By: #### 2 276-4 #### [facility] CLIA [id number] [address] [place] [address] [place] MCHC (RBC) [Mass/Vol] 31.3 g/dL Normal 30.5-36.0 [facility] Comment on above: Order Comment: Speci men Type: BLOOD SPECIMEN [facility] Address: [address] [place] [address] Performed By: #### 2 276-4 #### [facility] CLIA [id number] [address] [place] [address] [place] MCV (RBC) [Entitic vol] 85.7 fL Normal 80.0-100.0 [facility] Comment on above: Order Comment: Speci men Type: BLOOD SPECIMEN [facility] Address: [address] [place] [address] Performed By: #### 2 276-4 #### [facility] CLIA [id number] [address] [place] [address] [place] Nucleated RBC (Bld) [#/Vol] 10*3/uL Normal <0.01 [facility] Comment on above: Order Comment: Speci men Type: BLOOD SPECIMEN [facility] Address: [address] [place] [address] Performed By: #### 2 276-4 #### [facility] CLIA [id number] [address] [place] [address] [place] Platelet mean volume (Bld) [Entitic vol] 10.5 fL Normal 9.0-12.7 [facility] Comment on above: Order Comment: Speci men Type: BLOOD SPECIMEN [facility] Address: [address] [place] [address] Performed By: #### 2 276-4 #### [facility] CLIA [id number] [address] [place] [address] [place] Platelets (Bld) [#/Vol] 316 10*3/uL Normal 150-400 [facility] Comment on above: Order Comment: Speci men Type: BLOOD SPECIMEN [facility] Address: [address] [place] [address] Performed By: #### 2 276-4 #### [facility] CLIA [id number] [address] [place] [address] [place] RBC (Bld) [#/Vol] 3.36 10*6/uL Low 3.90-5.20 [facility] Comment on above: Order Comment: Speci men Type: BLOOD SPECIMEN [facility] Address: [address] [place] [address] Performed By: #### 2 276-4 #### [facility] CLIA [id number] [address] [place] [address] [place] WBC (Bld) [#/Vol] 5.27 10*3/uL Normal 3.70-11.00 [facility] Comment on above: Order Comment: Speci men Type: BLOOD SPECIMEN [facility] Address: [address] [place] [address] Performed By: #### 2 276-4 #### [facility] CLIA [id number] [address] [place] [address] [place] FERRITINon 06-27-2024 Ferritin [Mass/Vol] 67.5 ng/mL 14.7 - 205.1 ng/mL [facility] Ferritin SerPl-mCncon 2023 Ferritin [Mass/Vol] 67.5 ng/mL Normal 14.7-205.1 [facility] Comment on above: Order Comment: Speci men Type: BLOOD SPECIMEN [facility] Address: [address] [place] [address] Performed By: #### 2 276-4 #### [facility] CLIA [id number] [address] [place] [address] [place] Ferritin [Mass/Vol]on 2023 Interpretation and review of laboratory results Normal [facility] Iron and Iron binding capaci ty panelon 06-27-2024 Interpretation and review of laboratory results Abnormal [facility] Iron [Mass/Vol] 30 ug/dL Low 41 - 186 ug/dL [facility] Iron binding capacity [Mass/Vol] 298 ug/dL 232 - 386 ug/dL [facility] Iron/TIBC [Molar ratio] 10.1 % Low 15.0 - 57.0 % [facility] Iron [Mass/Vol] 30 ug/dL Low 41-186 [facility] Comment on above: Order Comment: Speci men Type: BLOOD SPECIMEN [facility] Address: [address] [place] [address] Performed By: #### 2 276-4 #### [facility] CLIA [id number] [address] [place] [address] [place] Iron binding capacity [Mass/Vol] 298 ug/dL Normal 232-386 [facility] Comment on above: Order Comment: Speci men Type: BLOOD SPECIMEN [facility] Address: [address] [place] [address] Performed By: #### 2 276-4 #### [facility] CLIA [id number] [address] [place] [address] [place] Iron/TIBC [Molar ratio] 10.1 % Low 15.0-57.0 [facility] Comment on above: Order Comment: Speci men Type: BLOOD SPECIMEN [facility] Address: [address] [place] [address] Performed By: #### 2 276-4 #### [facility] CLIA [id number] [address] [place] [address] [place] CBC panel Auto (Bld)on 06-25 Erythrocyte distribution width (RBC) [Ratio] 15.9 % High 11.5 - 15.0 % [facility] Hematocrit (Bld) [Volume fraction] 28.7 % Low 36.0 - 46.0 % [facility] Hemoglobin (Bld) [Mass/Vol] 9.0 g/dL Low 11.5 - 15.5 g/dL [facility] Interpretation and review of laboratory results Abnormal [facility] MCH (RBC) [Entitic mass] 26.7 pg 26.0 - 34.0 pg [facility] MCHC (RBC) [Mass/Vol] 31.4 g/dL 30.5 - 36.0 g/dL [facility] MCV (RBC) [Entitic vol] 85.2 fL 80.0 - 100.0 fL [facility] Nucleated RBC (Bld) [#/Vol] NINF [facility] Platelet mean volume (Bld) [Entitic vol] 10.8 fL 9.0 - 12.7 fL [facility] Platelets (Bld) [#/Vol] 315 10*3/uL [facility] RBC (Bld) [#/Vol] 3.37 10*6/uL Low 3.90 - 5.2 0 m/uL [facility] WBC (Bld) [#/Vol] 4.96 10*3/uL [facility] Erythrocyte distribution width (RBC) [Ratio] 15.9 % High 11.5-15.0 [facility] Comment on above: Order Comment: Speci isabella Type: BLOOD SPECIMEN Ordering Facility: [facility] Address: [address] [place] [address] Performed By: #### 2 4362-6 #### [facility] CLIA [id number] [address] [place] [address] [place] Hematocrit (Bld) [Volume fraction] 28.7 % Low 36.0-46.0 [facility] Comment on above: Order Comment: Speci men Type: BLOOD SPECIMEN Ordering Facility: [facility] Address: [address] [place] [address] Performed By: #### 2 4362-6 #### [facility] CLIA [id number] [address] [place] [address] [place] Hemoglobin (Bld) [Mass/Vol] 9.0 g/dL Low 11.5-15.5 [facility] Comment on above: Order Comment: Speci men Type: BLOOD SPECIMEN Ordering Facility: [facility] Address: [address] [place] [address] Performed By: #### 2 4362-6 #### [facility] CLIA [id number] [address] [place] [address] [place] MCH (RBC) [Entitic mass] 26.7 pg Normal 26.0-34.0 [facility] Comment on above: Order Comment: Speci men Type: BLOOD SPECIMEN Ordering Facility: [facility] Address: [address] [place] [address] Performed By: #### 2 4362-6 #### [facility] CLIA [id number] [address] [place] [address] [place] MCHC (RBC) [Mass/Vol] 31.4 g/dL Normal 30.5-36.0 [facility] Comment on above: Order Comment: Speci men Type: BLOOD SPECIMEN Ordering Facility: [facility] Address: [address] [place] [address] Performed By: #### 2 4362-6 #### [facility] CLIA [id number] [address] [place] [address] [place] MCV (RBC) [Entitic vol] 85.2 fL Normal 80.0-100.0 [facility] Comment on above: Order Comment: Speci men Type: BLOOD SPECIMEN Ordering Facility: [facility] Address: [address] [place] [address] Performed By: #### 2 4362-6 #### [facility] CLIA [id number] [address] [place] [address] [place] Nucleated RBC (Bld) [#/Vol] 10*3/uL Normal <0.01 [facility] Comment on above: Order Comment: Speci men Type: BLOOD SPECIMEN Ordering Facility: [facility] Address: [address] [place] [address] Performed By: #### 2 4362-6 #### [facility] CLIA [id number] [address] [place] [address] [place] Platelet mean volume (Bld) [Entitic vol] 10.8 fL Normal 9.0-12.7 [facility] Comment on above: Order Comment: Speci men Type: BLOOD SPECIMEN Ordering Facility: [facility] Address: [address] [place] [address] Performed By: #### 2 4362-6 #### [facility] CLIA [id number] [address] [place] [address] [place] Platelets (Bld) [#/Vol] 315 10*3/uL Normal 150-400 [facility] Comment on above: Order Comment: Speci men Type: BLOOD SPECIMEN Ordering Facility: [facility] Address: [address] [place] [address] Performed By: #### 2 4362-6 #### [facility] CLIA [id number] [address] [place] [address] [place] RBC (Bld) [#/Vol] 3.37 10*6/uL Low 3.90-5.20 [facility] Comment on above: Order Comment: Speci men Type: BLOOD SPECIMEN Ordering Facility: [facility] Address: [address] [place] [address] Performed By: #### 2 4362-6 #### [facility] CLIA [id number] [address] [place] [address] [place] WBC (Bld) [#/Vol] 4.96 10*3/uL Normal 3.70-11.00 [facility] Comment on above: Order Comment: Speci men Type: BLOOD SPECIMEN Ordering Facility: [facility] Address: [address] [place] [address] Performed By: #### 2 4362-6 #### [facility] CLIA [id number] [address] [place] [address] [place] Basic metabolic 2000 panelon 06-21-2024 Anion gap [Moles/Vol] 12 mmol/L 8 - 15 mmol/L [facility] Calcium [Mass/Vol] 9.3 mg/dL 8.5 - 10. 2 mg/dL [facility] Chloride [Moles/Vol] 108 mmol/L High 98 - 10 7 mmol/L [facility] CO2 [Moles/Vol] 21 mmol/L Low 22 - 30 mmol/L [facility] Creatinine [Mass/Vol] 0.92 mg/dL 0.58 - 0.96 mg/dL [facility] GFR/1.73 sq M.predicted among non-blacks MDRD (S/P/Bld) [Vol rate/Area] 62 mL/min/{1.73_m2} - PINF [facility] Comment on above: Estimated Glomerular Filtration [...] High 74 - 99 mg/dL [facility] Comment on above: The [place] Diab[employer] Association (ADA) provides guidance for [...] Standards of Medical Care in Diabetes 2016, [place] [employer]. Diabetes Care. 2016.39(Suppl 1). Interpretation and review of laboratory results Abnormal [facility] Potassium [Moles/Vol] 4.6 mmol/L 3.7 - 5.1 mmol/L [facility] Sodium [Moles/Vol] 141 mmol/L 136 - 144 mmol/L [facility] Urea nitrogen [Mass/Vol] 22 mg/dL High 7 - 21 mg/dL [facility] Anion gap [Moles/Vol] 12 mmol/L Normal 8-15 [facility] Comment on above: Order Comment: Speci men Type: BLOOD SPECIMEN Ordering Facility: [facility] Address: [address] [place] [address] Performed By: #### 2 4362-6 #### [facility] CLIA [id number] [address] [place] [address] [place] Calcium [Mass/Vol] 9.3 mg/dL Normal 8.5-10.2 [facility] Comment on above: Order Comment: Speci men Type: BLOOD SPECIMEN Ordering Facility: [facility] Address: [address] [place] [address] Performed By: #### 2 4362-6 #### [facility] CLIA [id number] [address] [place] [address] [place] Chloride [Moles/Vol] 108 mmol/L High 98-107 [facility] Comment on above: Order Comment: Speci men Type: BLOOD SPECIMEN [facility] Facility[facility] Address: [address] [place] [address] Performed By: #### 2 4362-6 #### [facility] CLIA [id number] [address] [place] [address] [place] CO2 [Moles/Vol] 21 mmol/L Low 22-30 [facility] Comment on above: Order Comment: Speci men Type: BLOOD SPECIMEN Ordering Facility: [facility] Address: [address] [place] [address] Performed By: #### 2 4362-6 #### [facility] CLIA [id number] [address] [place] [address] [place] Creatinine [Mass/Vol] 0.92 mg/dL Normal 0.58-0.96 [facility] Comment on above: Order Comment: Rhina mason Type: BLOOD SPECIMEN Ordering Facility: [facility] Address: [address] [place] [address] Performed By: #### 2 4362-6 #### [facility] CLIA [id number] [address] [place] [address] [place] Creatinine and Glomerular filtration rate.predicted panel (S/P/Bld) 62 mL/min/1.73m??? Normal >=60 [facility] Comment on above: Order Comment: Rhina mason Type: BLOOD SPECIMEN Ordering Facility: [facility] Address: [address] [place] [address] Result Comment: Isa mated Glomerular Filtration Rate [...] GFR. Performed By: #### 2 4362-6 #### [facility] CLIA [id number] [address] [place] [address] [place] Glucose [Mass/Vol] 101 mg/dL High 74-99 [facility] Comment on above: Order Comment: Rhina mason Type: BLOOD SPECIMEN Ordering Facility: [facility] Address: [address] [place] [address] Result Comment: The [place] Diabetes Association (ADA) provides guidance for cutoff [...] Standards of Medical Care in Diabetes 2016, [place] [employer] Association. Diabetes Care. 2016.39(Suppl 1). Performed By: #### 2 4362-6 #### [facility] CLIA [id number] [address] [place] [address] [place] Potassium [Moles/Vol] 4.6 mmol/L Normal 3.7-5.1 [facility] Comment on above: Order Comment: Speci men Type: BLOOD SPECIMEN Ordering Facility: [facility] Address: [address] [place] [address] Performed By: #### 2 4362-6 #### [facility] CLIA [id number] [address] [place] [address] [place] Sodium [Moles/Vol] 141 mmol/L Normal 136-144 [facility] Comment on above: Order Comment: Speci men Type: BLOOD SPECIMEN Ordering Facility: [facility] Address: [address] [place] [address] Performed By: #### 2 4362-6 #### [facility] CLIA [id number] [address] [place] [address] [place] Urea nitrogen [Mass/Vol] 22 mg/dL High 7-21 [facility] Comment on above: Order Comment: Speci men Type: BLOOD SPECIMEN Ordering Facility: [facility] Address: [address] [place] [address] Performed By: #### 2 4362-6 #### [facility] CLIA [id number] [address] [place] [address] [place] CBC panel Auto (Bld)on 06-21 Erythrocyte distribution width (RBC) [Ratio] 15.8 % High 11.5 - 15.0 % [facility] Hematocrit (Bld) [Volume fraction] 34.2 % Low 36.0 - 46.0 % [facility] Hemoglobin (Bld) [Mass/Vol] 10.6 g/dL Low 11.5 - 15.5 g/dL [facility] Interpretation and review of laboratory results Abnormal [facility] MCH (RBC) [Entitic mass] 26.4 pg 26.0 - 34.0 pg [facility] MCHC (RBC) [Mass/Vol] 31.0 g/dL 30.5 - 36.0 g/dL [facility] MCV (RBC) [Entitic vol] 85.3 fL 80.0 - 100.0 fL [facility] Nucleated RBC (Bld) [#/Vol] NINF [facility] Platelet mean volume (Bld) [Entitic vol] 10.7 fL 9.0 - 12.7 fL [facility] Platelets (Bld) [#/Vol] 300 10*3/uL [facility] RBC (Bld) [#/Vol] 4.01 10*6/uL 3.90 - 5.2 0 m/uL [facility] WBC (Bld) [#/Vol] 5.52 10*3/uL [facility] Erythrocyte distribution width (RBC) [Ratio] 15.8 % High 11.5-15.0 [facility] Comment on above: Order Comment: Speci men Type: BLOOD SPECIMEN Ordering Facility: [facility] Address: [address] [place] [address] Performed By: #### 2 4362-6 #### [facility] CLIA [id number] [address] [place] [address] [place] Hematocrit (Bld) [Volume fraction] 34.2 % Low 36.0-46.0 [facility] Comment on above: Order Comment: Speci men Type: BLOOD SPECIMEN Ordering Facility: [facility] Address: [address] [place] [address] Performed By: #### 2 4362-6 #### [facility] CLIA [id number] [address] [place] [address] [place] Hemoglobin (Bld) [Mass/Vol] 10.6 g/dL Low 11.5-15.5 [facility] Comment on above: Order Comment: Speci men Type: BLOOD SPECIMEN Ordering Facility: [facility] Address: [address] [place] [address] Performed By: #### 2 4362-6 #### [facility] CLIA [id number] [address] [place] [address] [place] MCH (RBC) [Entitic mass] 26.4 pg Normal 26.0-34.0 [facility] Comment on above: Order Comment: Speci men Type: BLOOD SPECIMEN Ordering Facility: [facility] Address: [address] [place] [address] Performed By: #### 2 4362-6 #### [facility] CLIA [id number] [address] [place] [address] [place] MCHC (RBC) [Mass/Vol] 31.0 g/dL Normal 30.5-36.0 [facility] Comment on above: Order Comment: Speci men Type: BLOOD SPECIMEN Ordering Facility: [facility] Address: [address] [place] [address] Performed By: #### 2 4362-6 #### [facility] CLIA [id number] [address] [place] [address] [place] MCV (RBC) [Entitic vol] 85.3 fL Normal 80.0-100.0 [facility] Comment on above: Order Comment: Speci men Type: BLOOD SPECIMEN Ordering Facility: [facility] Address: [address] [place] [address] Performed By: #### 2 4362-6 #### [facility] CLIA [id number] [address] [place] [address] [place] Nucleated RBC (Bld) [#/Vol] 10*3/uL Normal <0.01 [facility] Comment on above: Order Comment: Speci men Type: BLOOD SPECIMEN Ordering Facility: [facility] Address: [address] [place] [address] Performed By: #### 2 4362-6 #### [facility] CLIA [id number] [address] [place] [address] [place] Platelet mean volume (Bld) [Entitic vol] 10.7 fL Normal 9.0-12.7 [facility] Comment on above: Order Comment: Speci men Type: BLOOD SPECIMEN Ordering Facility: [facility] Address: [address] [place] [address] Performed By: #### 2 4362-6 #### [facility] CLIA [id number] [address] [place] [address] [place] Platelets (Bld) [#/Vol] 300 10*3/uL Normal 150-400 [facility] Comment on above: Order Comment: Speci men Type: BLOOD SPECIMEN Ordering Facility: [facility] Address: [address] [place] [address] Performed By: #### 2 4362-6 #### [facility] CLIA [id number] [address] [place] [address] [place] RBC (Bld) [#/Vol] 4.01 10*6/uL Normal 3.90-5.20 [facility] Comment on above: Order Comment: Speci men Type: BLOOD SPECIMEN Ordering Facility: [facility] Address: [address] [place] [address] Performed By: #### 2 4362-6 #### [facility] CLIA [id number] [address] [place] [address] [place] WBC (Bld) [#/Vol] 5.52 10*3/uL Normal 3.70-11.00 [facility] Comment on above: Order Comment: Speci men Type: BLOOD SPECIMEN Ordering Facility: [facility] Address: [address] [place] [address] Performed By: #### 2 4362-6 #### [facility] CLIA [id number] [address] [place] [address] [place] Basic metabolic 2000 panelon 06-19-2024 Anion gap [Moles/Vol] 10 mmol/L Normal 8-15 [facility] Comment on above: Order Comment: Speci men Type: BLOOD SPECIMEN Ordering Facility: [facility] Address: [address] [place] [address] Performed By: #### 2 4321-2, 30774-1, #### [facility] CLIA [id number] [address] [place] [address] [place] Calcium [Mass/Vol] 8.9 mg/dL Normal 8.5-10.2 [facility] Comment on above: Order Comment: Speci men Type: BLOOD SPECIMEN Ordering Facility: [facility] Address: [address] [place] [address] Performed By: #### 2 4321-2, 15756-6, #### [facility] CLIA [id number] [address] [place] [address] [place] Chloride [Moles/Vol] 109 mmol/L High 98-107 [facility] Comment on above: Order Comment: Speci men Type: BLOOD SPECIMEN Ordering Facility: [facility] Address: [address] [place] [address] Performed By: #### 2 4321-2, 20070-7, #### [facility] CLIA [id number] [address] [place] [address] [place] CO2 [Moles/Vol] 21 mmol/L Low 22-30 [facility] Comment on above: Order Comment: Speci men Type: BLOOD SPECIMEN Ordering Facility: [facility] Address: [address] [place] [address] Performed By: #### 2 4321-2, 88351-7, #### [facility] CLIA [id number] [address] [place] [address] [place] Creatinine [Mass/Vol] 1.04 mg/dL High 0.58-0.96 [facility] Comment on above: Order Comment: Speci men Type: BLOOD SPECIMEN Ordering Facility: [facility] Address: [address] [place] [address] Performed By: #### 2 4321-2, 06754-6, #### [facility] CLIA [id number] [address] Creatinine and Glomerular filtration rate.predicted panel (S/P/Bld) 53 mL/min/1.73m??? Low >=60 [facility] Comment on above: Order Comment: Rhina mason Type: BLOOD SPECIMEN Ordering Facility: [facility] Address: [address] [place] [address] Result Comment: Isa mated Glomerular Filtration Rate [...] actual GFR. Performed By: #### 2 4321-2, 26176-9, #### [facility] CLIA [id number] [address] Glucose [Mass/Vol] 103 mg/dL High 74-99 [facility] Comment on above: Order Comment: Rhina mason Type: BLOOD SPECIMEN Ordering Facility: [facility] Address: [address] [place] [address] Result Comment: The [place] Diabetes Association (ADA) provides guidance for cutoff [...] Standards of Medical Care in Diabetes 2016, [place] [employer]. Diabetes Care. 2016.39(Suppl 1). Performed By: #### 2 4321-2, 85256-6, #### [facility] CLIA [id number] [address] [facility] Potassium [Moles/Vol] 4.8 mmol/L Normal 3.7-5.1 [facility] Comment on above: Order Comment: Speci men Type: BLOOD SPECIMEN Ordering Facility: [facility] Address: [address] [place] [address] Performed By: #### 2 4321-2, 08444-0, #### [facility] CLIA [id number] [address] [place] [facility] Sodium [Moles/Vol] 140 mmol/L Normal 136-144 [facility] Comment on above: Order Comment: Speci men Type: BLOOD SPECIMEN Ordering Facility: [facility] Address: [address] [place] [address] Performed By: #### 2 4321-2, 23259-0, #### [facility] CLIA [id number] [address] [place] [facility] Urea nitrogen [Mass/Vol] 25 mg/dL High 7-21 [facility] Comment on above: Order Comment: Speci men Type: BLOOD SPECIMEN Ordering Facility: [facility] Address: [address] [place] [address] Performed By: #### 2 4321-2, 62629-9, #### [facility] CLIA [id number] [address] [place] [facility] CBC panel Auto (Bld)on 06-19 Erythrocyte distribution width (RBC) [Ratio] 15.9 % High 11.5-15.0 [facility] Comment on above: Order Comment: Speci men Type: BLOOD SPECIMEN Ordering Facility: [facility] Address: [address] [place] [address] Performed By: #### 2 4321-2, 31583-0, #### [facility] CLIA [id number] [address] [place] Hematocrit (Bld) [Volume fraction] 30.6 % Low 36.0-46.0 [facility] Comment on above: Order Comment: Speci men Type: BLOOD SPECIMEN Ordering Facility: [facility] Address: [address] [place] [address] Performed By: #### 2 4321-2, 11910-3, #### [facility] CLIA [id number] [address] [facility] Hemoglobin (Bld) [Mass/Vol] 9.5 g/dL Low 11.5-15.5 [facility] Comment on above: Order Comment: Speci men Type: BLOOD SPECIMEN Ordering Facility: [facility] Address: [address] [place] [address] Performed By: #### 2 4321-2, 09188-5, #### [facility] CLIA [id number] [address] [facility] MCH (RBC) [Entitic mass] 26.5 pg Normal 26.0-34.0 [facility] Comment on above: Order Comment: Speci men Type: BLOOD SPECIMEN Ordering Facility: [facility] Address: [address] [place] [address] Performed By: #### 2 4321-2, 53158-2, #### [facility] CLIA [id number] [address] [facility] MCHC (RBC) [Mass/Vol] 31.0 g/dL Normal 30.5-36.0 [facility] Comment on above: Order Comment: Speci men Type: BLOOD SPECIMEN Ordering Facility: [facility] Address: [address] [place] [address] Performed By: #### 2 4321-2, 26737-4, #### [facility] CLIA [id number] [address] MCV (RBC) [Entitic vol] 85.5 fL Normal 80.0-100.0 [facility] Comment on above: Order Comment: Speci men Type: BLOOD SPECIMEN Ordering Facility: [facility] Address: [address] [place] [address] Performed By: #### 2 4321-2, 03692-4, #### [facility] CLIA [id number] [address] [place] Nucleated RBC (Bld) [#/Vol] 10*3/uL Normal <0.01 [facility] Comment on above: Order Comment: Speci men Type: BLOOD SPECIMEN Ordering Facility: [facility] Address: [address] [place] [address] Performed By: #### 2 4321-2, 70529-9, #### [facility] CLIA [id number] [address] Platelet mean volume (Bld) [Entitic vol] 10.4 fL Normal 9.0-12.7 [facility] Comment on above: Order Comment: Speci men Type: BLOOD SPECIMEN Ordering Facility: [facility] Address: [address] [place] [address] Performed By: #### 2 1-2, 58043-1, #### [facility] CLIA [id number] [address] Platelets (Bld) [#/Vol] 245 10*3/uL Normal 150-400 [facility] Comment on above: Order Comment: Speci men Type: BLOOD SPECIMEN Ordering Facility: [facility] Address: [address] [place] [address] Performed By: #### 2 4321-2, 95742-8, #### [facility] CLIA [id number] [address] [place] RBC (Bld) [#/Vol] 3.58 10*6/uL Low 3.90-5.20 [facility] Comment on above: Order Comment: Speci men Type: BLOOD SPECIMEN Ordering Facility: [facility] Address: [address] [place] [address] Performed By: #### 2 4321-2, 93777-9, #### [facility] CLIA [id number] 1 [place] [address] [place] WBC (Bld) [#/Vol] 4.67 10*3/uL Normal 3.70-11.00 [facility] Comment on above: Order Comment: Speci men Type: BLOOD SPECIMEN Ordering Facility: [facility] Address: [address] [place] [address] [place] [address] Performed By: #### 2 4321-2, 03948-4, 71147-6 #### [facility] CLIA [id number] [address] [place] [id number] [facility] [place] CNDSon 06-19-2024 CNDS HNO ID: [id number] Author: DON EDWARDS DO Service: Hospital Medicine [...] eliquis. She was seen by therapy and half-way facility was recommended. He slowly was improving. She was discharged to half-way facility in stable condition. OTHER PROBLEMS/DIAGNOSIS: Principal [...] call for appointment?: Yes Jared Evans MD [phone] [address] [facility] [address] PCP Requested Referral Follow-Up Appointment When: In 2 weeks Patient/Parents to call for appointment?: Yes Hermila Padilla MD [phone] [place] [address] PCP Requested Referral Follow-Up Appointment For hydronephrosis and renal lesion When: In 2 weeks Patient/Parents to call for appointment?: Yes Mikhail Vuong Jr., MD [phone] [address] [place] [address] PCP Requested Referral Follow-Up Appointment With: neurology When: In 4 weeks Patient/Parents to call for appointment?: Yes Additional Provider to Provider Information: Treatment Team: Attending Provider: Don Edwards DO Consulting: Pratibha Logan MD Consulting: Torsten Silva MD Primary Service: BLAS ALVAREZ [facility] Critical Issues: SPECIALIST FOLLOW-UP: urology, cardiology, neurology LABS AND PROCEDURES PENDING AT DISCHARGE: No pending results. FOLLOW-UP APPOINTMENTS ALREADY SCHEDULED WITH A [facility] PROVIDER: No future appointments. Discharge Information Row Name ED to Hosp-Admission (Current) from 06/10/2024 in [place] [facility] NEURO/CARD Rehab Facility Agency [facility] ALLERGIES Allergen Reactions Percocet [Oxycodone* Itching DISCHARGE MEDICA (more content not included)... Normal [facility] Basic metabolic 2000 panelon 06-18-2024 Anion gap [Moles/Vol] 10 mmol/L Normal 8-15 [facility] Comment on above: Order Comment: Speci men Type: BLOOD SPECIMEN Ordering Facility: [facility] Address: [address] [place] [address] Performed By: #### 2 4321-2, 02180-6, #### [facility] CLIA [id number] 1 [place] [address] [place] Calcium [Mass/Vol] 8.9 mg/dL Normal 8.5-10.2 [facility] Comment on above: Order Comment: Speci men Type: BLOOD SPECIMEN Ordering Facility: [facility] Address: [address] [place] [address] Performed By: #### 2 4321-2, 74096-0, #### [facility] CLIA [id number] 1 [place] [address] [place] Chloride [Moles/Vol] 110 mmol/L High 98-107 [facility] Comment on above: Order Comment: Speci men Type: BLOOD SPECIMEN Ordering Facility: [facility] Address: [address] [place] [address] Performed By: #### 2 4321-2, 24984-8, #### [facility] CLIA [id number] 1 [place] [address] [place] CO2 [Moles/Vol] 21 mmol/L Low 22-30 [facility] Comment on above: Order Comment: Specrobson mason Type: BLOOD SPECIMEN Ordering Facility: [facility] Address: [address] [place] [address] Performed By: #### 2 4321-2, 76759-0, #### [facility] CLIA [id number] [address] [facility] Creatinine [Mass/Vol] 0.96 mg/dL Normal 0.58-0.96 [facility] Comment on above: Order Comment: Rhina mason Type: BLOOD SPECIMEN Ordering Facility: [facility] Address: [address] [place] [address] Performed By: #### 2 4321-2, 78072-4, #### [facility] CLIA [id number] [address] Creatinine and Glomerular filtration rate.predicted panel (S/P/Bld) 58 mL/min/1.73m??? Low >=60 [facility] Comment on above: Order Comment: Specrobson mason Type: BLOOD SPECIMEN Ordering Facility: [facility] Address: [address] [place] [address] Result Comment: Isa mated Glomerular Filtration Rate [...] actual GFR. Performed By: #### 2 4321-2, 49533-6, #### [facility] CLIA [id number] [address] [place] Glucose [Mass/Vol] 112 mg/dL High 74-99 [facility] Comment on above: Order Comment: Samiri men Type: BLOOD SPECIMEN Ordering Facility: [facility] Address: [address] [place] [address] Result Comment: The [place] Diabetes Association (ADA) provides guidance for cutoff [...] Standards of Medical Care in Diabetes 2016, [place] [employer]. Diabetes Care. 2016.39(Suppl 1). Performed By: #### 2 4321-2, 03876-3, #### [facility] CLIA [id number] [address] [place] [address] [place] Potassium [Moles/Vol] 4.4 mmol/L Normal 3.7-5.1 [facility] Comment on above: Order Comment: Speci men Type: BLOOD SPECIMEN Ordering Facility: [facility] Address: [address] [place] [address] Performed By: #### 2 4321-2, 23856-5, #### [facility] CLIA [id number] [address] [place] [address] [place] Sodium [Moles/Vol] 141 mmol/L Normal 136-144 [facility] Comment on above: Order Comment: Speci men Type: BLOOD SPECIMEN Ordering Facility: [facility] Address: [address] [place] [address] Performed By: #### 2 4321-2, 56037-3, #### [facility] CLIA [id number] [address] [place] [address] [place] Urea nitrogen [Mass/Vol] 22 mg/dL High 7-21 [facility] Comment on above: Order Comment: Speci men Type: BLOOD SPECIMEN Ordering Facility: [facility] Address: [address] [place] [id number] Performed By: #### 2 4321-2, 68844-1, 18930-7 #### [facility] CLIA [id number] [address] [place] CBC panel Auto (Bld)on 06-18 Erythrocyte distribution width (RBC) [Ratio] 15.9 % High 11.5-15.0 [facility] Comment on above: Order Comment: Speci men Type: BLOOD SPECIMENOrdering Facility: [facility] Address: [address] [place] [address] Performed By: #### 5 8410-2 ####[facility] [id number] [address] [place] Hematocrit (Bld) [Volume fraction] 34.3 % Low 36.0-46.0 [facility] Comment on above: Order Comment: Speci men Type: BLOOD SPECIMENOrdering Facility: [facility] Address: [address] [place] [address] Performed By: #### 5 8410-2 ####[facility] [id number] [address] [place] Hemoglobin (Bld) [Mass/Vol] 10.7 g/dL Low 11.5-15.5 [facility] Comment on above: Order Comment: Speci men Type: BLOOD SPECIMENOrdering Facility: [facility] Address: [address] [place] [address] Performed By: #### 5 8410-2 ####[facility] [id number] [address] [place] MCH (RBC) [Entitic mass] 26.7 pg Normal 26.0-34.0 [facility] Comment on above: Order Comment: Speci men Type: BLOOD SPECIMENOrdering Facility: [facility] Address: [address] [place] [address] Performed By: #### 5 8410-2 ####[facility] [id number] [address] [place] MCHC (RBC) [Mass/Vol] 31.2 g/dL Normal 30.5-36.0 [facility] Comment on above: Order Comment: Speci men Type: BLOOD SPECIMENOrdering Facility: [facility] Address: [address] [place] [address] Performed By: #### 5 8410-2 ####[facility]ORY[facility]IA [id number] [address] MCV (RBC) [Entitic vol] 85.5 fL Normal 80.0-100.0 [facility] Comment on above: Order Comment: Speci men Type: BLOOD SPECIMENOrdering Facility: [facility] Address: [address] [place] [address] Performed By: #### 5 8410-2 ####[facility]ORY[facility]IA [id number] [address] Nucleated RBC (Bld) [#/Vol] 10*3/uL Normal <0.01 [facility] Comment on above: Order Comment: Speci men Type: BLOOD SPECIMENOrdering Facility: [facility] Address: [address] [place] [address] Performed By: #### 5 8410-2 ####[facility]ORY[facility]IA [id number] [address] Platelet mean volume (Bld) [Entitic vol] 10.0 fL Normal 9.0-12.7 [facility] Comment on above: Order Comment: Speci men Type: BLOOD SPECIMENOrdering Facility: [facility] Address: [address] [place] [address] Performed By: #### 5 8410-2 ####[facility]ORY[facility]IA [id number] [address] Platelets (Bld) [#/Vol] 273 10*3/uL Normal 150-400 [facility] Comment on above: Order Comment: Speci men Type: BLOOD SPECIMENOrdering Facility: [facility] Address: [address] [place] [address] Performed By: #### 5 8410-2 ####[facility]ORY[facility]IA [id number] [address] [place] RBC (Bld) [#/Vol] 4.01 10*6/uL Normal 3.90-5.20 [facility] Comment on above: Order Comment: Speci men Type: BLOOD SPECIMENOrdering Facility: [facility] Address: [address] [place] [address] Performed By: #### 5 8410-2 ####[facility]ORYCLIA [id number] [address] [facility] WBC (Bld) [#/Vol] 5.29 10*3/uL Normal 3.70-11.00 [facility] Comment on above: Order Comment: Speci men Type: BLOOD SPECIMENOrdering Facility: [facility] Address: [address] [place] [address] Performed By: #### 5 8410-2 ####[facility]ORYCLIA [id number] [address] Hepatic function 2000 panelo n 06-18-2024 Albumin [Mass/Vol] 3.5 g/dL Low 3.9-4.9 [facility] Comment on above: Order Comment: Speci men Type: BLOOD SPECIMEN Ordering Facility: [facility] Address: [address] [place] [address] Performed By: #### 2 4321-2, 33974-0, #### [facility] CLIA [id number] [address] ALP [Catalytic activity/Vol] 80 U/L Normal 34-123 [facility] Comment on above: Order Comment: Speci men Type: BLOOD SPECIMEN Ordering Facility: [facility] Address: [address] [place] [address] Performed By: #### 2 4321-2, 92973-7, #### [facility] CLIA [id number] [address] ALT With P-5'-P [Catalytic activity/Vol] 16 U/L Normal 7-38 [facility] Comment on above: Order Comment: Speci men Type: BLOOD SPECIMEN Ordering Facility: [facility] Address: [address] [place] [address] Performed By: #### 2 4321-2, 67011-9, #### [facility] CLIA [id number] [address] [facility] AST With P-5'-P [Catalytic activity/Vol] 20 U/L Normal 13-35 [facility] Comment on above: Order Comment: Speci men Type: BLOOD SPECIMEN Ordering Facility: [facility] Address: [address] [place] [address] Performed By: #### 2 4321-2, 69204-9, #### [facility] CLIA [id number] [address] [place] [facility] Bilirubin [Mass/Vol] 0.3 mg/dL Normal 0.2-1.3 [facility] Comment on above: Order Comment: Speci men Type: BLOOD SPECIMEN Ordering Facility: [facility] Address: [address] [place] [address] Performed By: #### 2 4321-2, 14800-8, #### [facility] CLIA [id number] [address] Bilirubin.conjugated [Mass/Vol] mg/dL Normal <0.2 [facility] Comment on above: Order Comment: Speci men Type: BLOOD SPECIMEN Ordering Facility: [facility] Address: [address] [place] [address] Performed By: #### 2 4321-2, 33288-2, #### [facility] CLIA [id number] [address] [facility] Protein [Mass/Vol] 6.0 g/dL Low 6.3-8.0 [facility] Comment on above: Order Comment: Speci men Type: BLOOD SPECIMEN Ordering Facility: [facility] Address: [address] [place] [id number] Performed By: #### 2 4321-2, 80655-6, 52294-1 #### [facility] CLIA [id number] [address] [place] [id number] [facility] Magnesium SerPl-mCncon 06-18 Magnesium [Mass/Vol] 1.9 mg/dL Normal 1.7-2.3 [facility] Comment on above: Order Comment: Speci men Type: BLOOD SPECIMEN Ordering Facility: [facility] Address: [address] [place] [place] [id number] Performed By: #### 2 4321-2, 48459-7, 07437-9 #### [facility] CLIA [id number] [address] NUTRITIONon 06-18-2024 NUTRITION HNO ID: [id number] Author: NELSON AVILA RD Service: Nutrition Therapy [...] Obtained From: Patient Weight Change: 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(s) ([employer]; 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) MNT Billing: $ Initial Assessment: 1-15 minutes SIGNATURE: Nelson Avila RD PATIENT NAME: Mel Castillo DATE: June 18, 2024 TIME: 11:18 AM Normal [facility] THERAPY NTon 06-18-2024 THERAPY NT HNO ID: [id number] Author: SELENA BARR, PT Service: Physical Therapy Author Type: Physical Therapist Type: Therapy (PT/OT/Speech/Resp) Filed: 06/18/2024 12:53 Note Text: Physical Therapy Treatment Summary SERVICE DATE: 06/18/2024 SERVICE TIME: 1056 to 1129 ROOM: [place] [address] PT 6 Clicks Score: 16 DISCHARGE RECOMMENDATIONS [...] Lack of coordination-other TREATMENT INTERVENTIONS Therapeutic Activity (87810) Therapeutic Activity (12679) Treatment Minutes: 25 $ Therapeutic Activity (91878) Billed Units: 2 units Timed Code Treatment [...] [facility] THERAPY NT HNO ID: [id number] Author: ULI JEFFERSON OTR/L Service: Occupational Therapy Author Type: Occupational Therapist Type: Therapy (PT/OT/Speech/Resp) Filed: 06/18/2024 13:34 Note Text: Occupational Therapy Treatment Summary SERVICE DATE: 06/18/2024 SERVICE TIME: 1130 to 1154 ROOM: [place] [address] OT 6 Clicks Score: 15 DISCHARGE RECOMMENDATIONS [...] General symptoms and signs-other TREATMENT INTERVENTIONS Self Detention Management (89990), Cognitive Training (19304 and 59187) Timed Code Treatment (minutes): 24 Skilled Treatment Time (minutes): 24 Self Detention Management (01607) Treatment Minutes: 11 $ Self Detention Management (46316) Billed Units: 1 unit Minimal assist with meal set-up. Cueing for physical assist with maintaining functional grasp on packaging to tear open. Pt demonstrated impaired hand-eye coordination/visual spatial awareness with bringing food to mouth. Provided further cueing and tactile awareness/sequencing to maximize ease with self feeding. Cognitive Training First 15 Minutes (34145) : 13 $ Cognitive Training First 15 Minutes (76225) Billed Units: 1 unit Facilitated completion of [facility] Mental Examination (UMS) to screen performance [...] Occupational Therapy, Safety/Judgment, Sitting Balance to Improve Amelia with ADLs/Self-Care, Cognitive Skills, Command Following, Expected Functional Level, Feeding Tasks, Low Vision Strategies, Positioning, Visual Scanning/Attention Activities THERAPEUTIC SKILLS USED Activity Dosing, Cues for (more content not included)... Normal [facility] CBC panel Auto (Bld)on 06-17 Erythrocyte distribution width (RBC) [Ratio] 15.7 % High 11.5-15.0 [facility] Comment on above: Order Comment: Speci isabella Type: BLOOD SPECIMEN Ordering Facility: [facility] Address: [address] [place] [address] Performed By: #### 2 4321-2, 26473-9, #### [facility] CLIA [id number] [address] [facility] Hematocrit (Bld) [Volume fraction] 35.1 % Low 36.0-46.0 [facility] Comment on above: Order Comment: Speci isabella Type: BLOOD SPECIMEN Ordering Facility: [facility] Address: [address] [place] [address] Performed By: #### 2 4321-2, 56483-9, #### [facility] CLIA [id number] [address] [facility] Hemoglobin (Bld) [Mass/Vol] 11.0 g/dL Low 11.5-15.5 [facility] Comment on above: Order Comment: Speci men Type: BLOOD SPECIMEN Ordering Facility: [facility] Address: [address] [place] [address] Performed By: #### 2 4321-2, 46299-3, #### [facility] CLIA [id number] [address] MCH (RBC) [Entitic mass] 26.4 pg Normal 26.0-34.0 [facility] Comment on above: Order Comment: Speci men Type: BLOOD SPECIMEN Ordering Facility: [facility] Address: [address] [place] [address] Performed By: #### 2 4321-2, 56690-4, #### [facility] CLIA [id number] [address] MCHC (RBC) [Mass/Vol] 31.3 g/dL Normal 30.5-36.0 [facility] Comment on above: Order Comment: Speci men Type: BLOOD SPECIMEN Ordering Facility: [facility] Address: [address] [place] [address] Performed By: #### 2 4321-2, 70214-9, #### [facility] CLIA [id number] [address] [place] MCV (RBC) [Entitic vol] 84.4 fL Normal 80.0-100.0 [facility] Comment on above: Order Comment: Speci men Type: BLOOD SPECIMEN Ordering Facility: [facility] Address: [address] [place] [address] Performed By: #### 2 4321-2, 93198-3, #### [facility] CLIA [id number] [address] [place] Nucleated RBC (Bld) [#/Vol] 10*3/uL Normal <0.01 [facility] Comment on above: Order Comment: Speci men Type: BLOOD SPECIMEN Ordering Facility: [facility] Address: [address] [place] [address] Performed By: #### 2 1-2, 03503-4, #### [facility] CLIA [id number] [address] [place] Platelet mean volume (Bld) [Entitic vol] 10.1 fL Normal 9.0-12.7 [facility] Comment on above: Order Comment: Speci men Type: BLOOD SPECIMEN Ordering Facility: [facility] Address: [address] [place] [address] Performed By: #### 2 4321-2, 91725-2, #### [facility] CLIA [id number] 1 [place] [address] [place] Platelets (Bld) [#/Vol] 294 10*3/uL Normal 150-400 [facility] Comment on above: Order Comment: Speci men Type: BLOOD SPECIMEN Ordering Facility: [facility] Address: [address] [place] [address] Performed By: #### 2 4321-2, 89119-9, #### [facility] CLIA [id number] [address] [place] RBC (Bld) [#/Vol] 4.16 10*6/uL Normal 3.90-5.20 [facility] Comment on above: Order Comment: Speci men Type: BLOOD SPECIMEN Ordering Facility: [facility] Address: [address] [place] [address] Performed By: #### 2 4321-2, 48833-6, #### [facility] CLIA [id number] [address] [place] WBC (Bld) [#/Vol] 5.63 10*3/uL Normal 3.70-11.00 [facility] Comment on above: Order Comment: Speci men Type: BLOOD SPECIMEN Ordering Facility: [facility] Address: [address] [place] [address] Performed By: #### 2 4321-2, 03586-3, #### [facility] CLIA [id number] [address] [place] CBC panel Auto (Bld)on 06-16 Erythrocyte distribution width (RBC) [Ratio] 15.4 % High 11.5-15.0 [facility] Comment on above: Order Comment: Speci men Type: BLOOD SPECIMEN Ordering Facility: [facility] Address: [address] [place] [address] Performed By: #### 2 4321-2, 16801-1, #### [facility] CLIA [id number] [address] [place] Hematocrit (Bld) [Volume fraction] 34.9 % Low 36.0-46.0 [facility] Comment on above: Order Comment: Speci men Type: BLOOD SPECIMEN Ordering Facility: [facility] Address: [address] [place] [address] Performed By: #### 2 4321-2, 94236-6, #### [facility] CLIA [id number] [address] Hemoglobin (Bld) [Mass/Vol] 10.9 g/dL Low 11.5-15.5 [facility] Comment on above: Order Comment: Speci men Type: BLOOD SPECIMEN Ordering Facility: [facility] Address: [address] [place] [address] Performed By: #### 2 4321-2, 54219-9, #### [facility] CLIA [id number] [address] MCH (RBC) [Entitic mass] 26.4 pg Normal 26.0-34.0 [facility] Comment on above: Order Comment: Speci men Type: BLOOD SPECIMEN Ordering Facility: [facility] Address: [address] [place] [address] Performed By: #### 2 4320-2, 85545-5, #### [facility] CLIA [id number] [address] MCHC (RBC) [Mass/Vol] 31.2 g/dL Normal 30.5-36.0 [facility] Comment on above: Order Comment: Speci men Type: BLOOD SPECIMEN Ordering Facility: [facility] Address: [address] [place] [address] Performed By: #### 2 4321-2, 68275-6, #### [facility] CLIA [id number] [address] MCV (RBC) [Entitic vol] 84.5 fL Normal 80.0-100.0 [facility] Comment on above: Order Comment: Speci men Type: BLOOD SPECIMEN Ordering Facility: [facility] Address: [address] [place] [address] Performed By: #### 2 4321-2, 06686-5, #### [facility] CLIA [id number] [address] [place] Nucleated RBC (Bld) [#/Vol] 10*3/uL Normal <0.01 [facility] Comment on above: Order Comment: Speci men Type: BLOOD SPECIMEN Ordering Facility: [facility] Address: [address] [place] [address] Performed By: #### 2 4321-2, 00778-5, #### [facility] CLIA [id number] [address] [place] Platelet mean volume (Bld) [Entitic vol] 9.8 fL Normal 9.0-12.7 [facility] Comment on above: Order Comment: Speci men Type: BLOOD SPECIMEN Ordering Facility: [facility] Address: [address] [place] [address] Performed By: #### 2 432-2, 97940-1, #### [facility] CLIA [id number] [address] [place] Platelets (Bld) [#/Vol] 274 10*3/uL Normal 150-400 [facility] Comment on above: Order Comment: Speci men Type: BLOOD SPECIMEN Ordering Facility: [facility] Address: [address] [place] [address] Performed By: #### 2 1-2, 44177-6, #### [facility] CLIA [id number] [address] [place] RBC (Bld) [#/Vol] 4.13 10*6/uL Normal 3.90-5.20 [facility] Comment on above: Order Comment: Speci men Type: BLOOD SPECIMEN Ordering Facility: [facility] Address: [address] [place] [address] Performed By: #### 2 4321-2, 01631-6, #### [facility] CLIA [id number] [address] [place] WBC (Bld) [#/Vol] 6.06 10*3/uL Normal 3.70-11.00 [facility] Comment on above: Order Comment: Speci men Type: BLOOD SPECIMEN Ordering Facility: [facility] Address: [address] [place] [address] Performed By: #### 2 4321-2, 66908-8, #### [facility] CLIA [id number] [address] [place] CBC panel Auto (Bld)on 06-15 Erythrocyte distribution width (RBC) [Ratio] 15.4 % High 11.5-15.0 [facility] Comment on above: Order Comment: Speci men Type: BLOOD SPECIMEN Ordering Facility: [facility] Address: [address] [place] [address] Performed By: #### 2 4321-2, 34032-1, #### [facility] CLIA [id number] [address] Hematocrit (Bld) [Volume fraction] 33.9 % Low 36.0-46.0 [facility] Comment on above: Order Comment: Speci men Type: BLOOD SPECIMEN Ordering Facility: [facility] Address: [address] [place] [address] Performed By: #### 2 4321-2, 67555-8, #### [facility] CLIA [id number] [address] [place] Hemoglobin (Bld) [Mass/Vol] 10.6 g/dL Low 11.5-15.5 [facility] Comment on above: Order Comment: Speci men Type: BLOOD SPECIMEN Ordering Facility: [facility] Address: [address] [place] [address] Performed By: #### 2 4321-2, 78619-6, #### [facility] CLIA [id number] [address] [place] MCH (RBC) [Entitic mass] 26.2 pg Normal 26.0-34.0 [facility] Comment on above: Order Comment: Speci men Type: BLOOD SPECIMEN Ordering Facility: [facility] Address: [address] [place] [address] Performed By: #### 2 1-2, 42695-2, #### [facility] CLIA [id number] [address] MCHC (RBC) [Mass/Vol] 31.3 g/dL Normal 30.5-36.0 [facility] Comment on above: Order Comment: Speci men Type: BLOOD SPECIMEN Ordering Facility: [facility] Address: [address] [place] [address] Performed By: #### 2 1-2, 11868-1, #### [facility] CLIA [id number] [address] [place] MCV (RBC) [Entitic vol] 83.9 fL Normal 80.0-100.0 [facility] Comment on above: Order Comment: Speci men Type: BLOOD SPECIMEN Ordering Facility: [facility] Address: [address] [place] [address] Performed By: #### 2 4320-2, 79733-1, #### [facility] CLIA [id number] [address] Nucleated RBC (Bld) [#/Vol] 10*3/uL Normal <0.01 [facility] Comment on above: Order Comment: Speci men Type: BLOOD SPECIMEN Ordering Facility: [facility] Address: [address] [place] [address] Performed By: #### 2 1-2, 49992-9, #### [facility] CLIA [id number] [address] Platelet mean volume (Bld) [Entitic vol] 9.9 fL Normal 9.0-12.7 [facility] Comment on above: Order Comment: Speci men Type: BLOOD SPECIMEN Ordering Facility: [facility] Address: [address] [place], [place] [address] Performed By: #### 2 4321-2, 62350-1, 88933-1 #### [facility] CLIA [id number] [address] Platelets (Bld) [#/Vol] 280 10*3/uL Normal 150-400 [facility] Comment on above: Order Comment: Speci men Type: BLOOD SPECIMEN Ordering Facility: [facility] Address: [address] [place] [address] Performed By: #### 2 4321-2, 58214-6, #### [facility] CLIA [id number] [address] RBC (Bld) [#/Vol] 4.04 10*6/uL Normal 3.90-5.20 [facility] Comment on above: Order Comment: Speci men Type: BLOOD SPECIMEN Ordering Facility: [facility] Address: [address] [place] [address] Performed By: #### 2 4321-2, 29180-1, #### [facility] CLIA [id number] [address] WBC (Bld) [#/Vol] 5.80 10*3/uL Normal 3.70-11.00 [facility] Comment on above: Order Comment: Speci men Type: BLOOD SPECIMEN Ordering Facility: [facility] Address: [address] [place] [address] Performed By: #### 2 4321-2, 91550-0, #### [facility] CLIA [id number] [address] THERAPY NTon 06-15-2024 THERAPY NT HNO ID: [id number] Author: MEHREEN MANCERA PT Service: Physical Therapy Author Type: Physical Therapist Type: Therapy (PT/OT/Speech/Resp) Filed: 06/15/2024 16:13 Note Text: Physical Therapy Treatment Summary SERVICE DATE: 06/15/2024 SERVICE TIME: 1518 to 1547 ROOM: [id number] PT 6 Clicks Score: 13 DISCHARGE RECOMMENDATIONS [...] Lack of coordination-other TREATMENT INTERVENTIONS Therapeutic Activity (42929), Neuromuscular Reeducation (41014) Timed Code Treatment (minutes): 29 Skilled Treatment Time (minutes): 29 Therapeutic Activity (18664) Treatment Minutes: 10 $ Therapeutic Activity (98661) Billed Units: 1 unit Neuromuscular Reeducation (48890) Treatment Minutes: 19 $ Neuromuscular Reeducation (80536) Billed Units: 1 unit Sitting balance and [...] Comment: Speci men Type: BLOOD SPECIMENOrdering Facility: [facility] Address: [address] [place] [address] Performed By: #### 5 8410-2 ####[facility] [id number] [address] Hematocrit (Bld) [Volume fraction] 34.8 % Low 36.0-46.0 [facility] Comment on above: Order Comment: Speci men Type: BLOOD SPECIMENOrdering Facility: [facility] Address: [address] [place] [address] Performed By: #### 5 8410-2 ####[facility] [id number] [address] [facility] Hemoglobin (Bld) [Mass/Vol] 11.0 g/dL Low 11.5-15.5 [facility] Comment on above: Order Comment: Speci men Type: BLOOD SPECIMENOrdering Facility: [facility] Address: [address] [place] [address] Performed By: #### 5 8410-2 ####[facility]IA [id number] [address] MCH (RBC) [Entitic mass] 26.6 pg Normal 26.0-34.0 [facility] Comment on above: Order Comment: Speci men Type: BLOOD SPECIMENOrdering Facility: [facility] Address: [address] [place] [address] Performed By: #### 5 8410-2 ####[facility]IA [id number] [address] [place] MCHC (RBC) [Mass/Vol] 31.6 g/dL Normal 30.5-36.0 [facility] Comment on above: Order Comment: Speci men Type: BLOOD SPECIMENOrdering Facility: [facility] Address: [address] [place] [address] Performed By: #### 5 8410-2 ####[facility]ORYCLIA [id number] [place] [address] [place] MCV (RBC) [Entitic vol] 84.3 fL Normal 80.0-100.0 [facility] Comment on above: Order Comment: Speci men Type: BLOOD SPECIMENOrdering Facility: [facility] Address: [address] [place] [address] Performed By: #### 5 8410-2 ####[facility]ORYCLIA [id number] [address] [place] Nucleated RBC (Bld) [#/Vol] 10*3/uL Normal <0.01 [facility] Comment on above: Order Comment: Speci men Type: BLOOD SPECIMENOrdering Facility: [facility] Address: [address] [place] [address] Performed By: #### 5 8410-2 ####[facility]ORYCLIA [id number] [address] [place] Platelet mean volume (Bld) [Entitic vol] 9.7 fL Normal 9.0-12.7 [facility] Comment on above: Order Comment: Speci men Type: BLOOD SPECIMENOrdering Facility: [facility] Address: [address] [place] [address] Performed By: #### 5 8410-2 ####[facility]ORYCLIA [id number] [address] [place] Platelets (Bld) [#/Vol] 278 10*3/uL Normal 150-400 [facility] Comment on above: Order Comment: Speci men Type: BLOOD SPECIMENOrdering Facility: [facility] Address: [address] [place] [address] Performed By: #### 5 8410-2 ####[facility]ORYCLIA [id number] [address] [place] RBC (Bld) [#/Vol] 4.13 10*6/uL Normal 3.90-5.20 [facility] Comment on above: Order Comment: Speci men Type: BLOOD SPECIMENOrdering Facility: [facility] Address: [address] [place] [address] Performed By: #### 5 8410-2 ####[facility]ORYCLIA [id number] [place] [address] [place] WBC (Bld) [#/Vol] 4.70 10*3/uL Normal 3.70-11.00 [facility] Comment on above: Order Comment: Speci men Type: BLOOD SPECIMENOrdering Facility: [facility] Address: [facility] [place] [id number] Performed By: #### 5 8410-2 ####[facility]ORYCLIA [id number] [place] [address] [facility] NURSING PROGon 06-14-2024 NURSING PROG HNO ID: [id number] Author: JOSE JERNIGAN RN Service: Nursing Author [...] portions of the right lung are clear. Rerecording Mixer: DEVEN Transcribe Date/Time: Jun 14 2024 1:33P Dictated by : DEV WELCH MD This examination was interpreted and the report reviewed and electronically signed by: DEV WELCH MD on Jun 14 2024 1:35PM EST [id number] Normal [facility] ALLIED HEALTHon 06-13-2024 ALLIED HEALTH HNO ID: [id number] Author: ALFRED DALEY Chaplain Service: ? Author Type: Stock Supervisor Type: Allied Health Filed: 06/13/2024 14:38 Note Text: SPIRITUAL CARE ASSESSMENT SERVICE DATE: 06/13/2024 SERVICE TIME: 11:53 Visit with: Patient Length of visit (minutes): 5 Shinto / Spirituality: Pt did not Disc. Reason: [...] Anion gap [Moles/Vol] 11 mmol/L Normal 8-15 [facility] Comment on above: Order Comment: Speci men Type: BLOOD SPECIMEN Ordering Facility: [facility] Address: [address] [place] [address] Performed By: #### 2 4321-2, 75348-9, #### [facility] CLIA [id number] [address] [place] [address] [place] Calcium [Mass/Vol] 8.9 mg/dL Normal 8.5-10.2 [facility] Comment on above: Order Comment: Speci men Type: BLOOD SPECIMEN Ordering Facility: [facility] Address: [address] [place] [address] Performed By: #### 2 4321-2, 99815-8, #### [facility] CLIA [id number] [address] [place] [address] [place] Chloride [Moles/Vol] 101 mmol/L Normal 98-107 [facility] Comment on above: Order Comment: Speci men Type: BLOOD SPECIMEN Ordering Facility: [facility] Address: [facility] [place] [address] Performed By: #### 2 4321-2, 82977-7, #### [facility] CLIA [id number] [address] [facility] CO2 [Moles/Vol] 24 mmol/L Normal 22-30 [facility] Comment on above: Order Comment: Speci men Type: BLOOD SPECIMEN Ordering Facility: [facility] Address: [address] [place] [address] Performed By: #### 2 4321-2, 44829-4, #### [facility] CLIA [id number] [address] [facility] Creatinine [Mass/Vol] 1.04 mg/dL High 0.58-0.96 [facility] Comment on above: Order Comment: Speci men Type: BLOOD SPECIMEN Ordering Facility: [facility] Address: [address] [place] [address] Performed By: #### 2 4321-2, 27209-1, #### [facility] CLIA [id number] [address] Creatinine and Glomerular filtration rate.predicted panel (S/P/Bld) 53 mL/min/1.73m??? Low >=60 [facility] Comment on above: Order Comment: Speci men Type: BLOOD SPECIMEN Ordering Facility: [facility] Address: [address] [place] [address] Result Comment: Isa mated Glomerular Filtration Rate [...] actual GFR. Performed By: #### 2 4321-2, 91957-0, #### [facility] CLIA [id number] 1 [place] [address] [place] Glucose [Mass/Vol] 95 mg/dL Normal 74-99 [facility] Comment on above: Order Comment: Rhina mason Type: BLOOD SPECIMEN Ordering Facility: [facility] Address: [address] [place] [address] Result Comment: The [place] [employer] (ADA) provides guidance for cutoff [...] Standards of Medical Care in Diabetes 2016, [place] [employer]. Diabetes Care. 2016.39(Suppl 1). Performed By: #### 2 4321-2, 00810-5, #### [facility] CLIA [id number] 1 [place] [address] [place] Potassium [Moles/Vol] 3.8 mmol/L Normal 3.7-5.1 [facility] Comment on above: Order Comment: Rhina mason Type: BLOOD SPECIMEN [facility] [facility] Address: [address] [place] [address] Performed By: #### 2 4321-2, 85027-5, #### [facility] CLIA [id number] 1 [place] [address] [place] Sodium [Moles/Vol] 136 mmol/L Normal 136-144 [facility] Comment on above: Order Comment: Rhina mason Type: BLOOD SPECIMEN Ordering Facility: [facility] Address: [address] [place], [place] [address] Performed By: #### 2 4321-2, 14652-5, #### [facility] CLIA [id number] [address] [place] Urea nitrogen [Mass/Vol] 16 mg/dL Normal 7-21 [facility] Comment on above: Order Comment: Speci men Type: BLOOD SPECIMEN Ordering Facility: [facility] Address: [address] [place] [address] Performed By: #### 2 4321-2, 88325-7, 88368-7 #### [facility] CLIA [id number] [address] [place] CBC panel Auto (Bld)on 06-13 Erythrocyte distribution width (RBC) [Ratio] 15.5 % High 11.5-15.0 [facility] Comment on above: Order Comment: Speci men Type: BLOOD SPECIMENOrdering Facility: [facility] Address: [address] [place] [address] Performed By: #### 5 8410-2 ####[facility]ORYCLIA [id number] [address] [place] Hematocrit (Bld) [Volume fraction] 33.1 % Low 36.0-46.0 [facility] Comment on above: Order Comment: Speci men Type: BLOOD SPECIMENOrdering Facility: [facility] Address: [address] [place] [address] Performed By: #### 5 8410-2 ####[facility]ORYCLIA [id number] [address] [place] Hemoglobin (Bld) [Mass/Vol] 10.2 g/dL Low 11.5-15.5 [facility] Comment on above: Order Comment: Speci men Type: BLOOD SPECIMENOrdering Facility: [facility] Address: [address] [place] [address] Performed By: #### 5 8410-2 ####[facility]ORYCLIA [id number] [address] [place] MCH (RBC) [Entitic mass] 26.5 pg Normal 26.0-34.0 [facility] Comment on above: Order Comment: Speci men Type: BLOOD SPECIMENOrdering Facility: [facility] Address: [address] [place] [address] Performed By: #### 5 8410-2 ####[facility]ORYCLIA [id number] [address] MCHC (RBC) [Mass/Vol] 30.8 g/dL Normal 30.5-36.0 [facility] Comment on above: Order Comment: Speci men Type: BLOOD SPECIMENOrdering Facility: [facility] Address: [address] [place] [address] Performed By: #### 5 8410-2 ####[facility]ATORYCLIA [id number] [address] [facility] MCV (RBC) [Entitic vol] 86.0 fL Normal 80.0-100.0 [facility] Comment on above: Order Comment: Speci men Type: BLOOD SPECIMENOrdering Facility: [facility] Address: [address] [place] [address] Performed By: #### 5 8410-2 ####[facility]ORYCLIA [id number] [address] Nucleated RBC (Bld) [#/Vol] 10*3/uL Normal <0.01 [facility] Comment on above: Order Comment: Speci men Type: BLOOD SPECIMENOrdering Facility: [facility] Address: [address] [place] [address] Performed By: #### 5 8410-2 ####[facility]ATORYCLIA [id number] [address] Platelet mean volume (Bld) [Entitic vol] 9.6 fL Normal 9.0-12.7 [facility] Comment on above: Order Comment: Speci men Type: BLOOD SPECIMENOrdering Facility: [facility] Address: [address] [place] [address] Performed By: #### 5 8410-2 ####[facility]ORYCLIA [id number] [address] [place] Platelets (Bld) [#/Vol] 287 10*3/uL Normal 150-400 [facility] Comment on above: Order Comment: Speci men Type: BLOOD SPECIMENOrdering Facility: [facility] Address: [address] [place] [address] Performed By: #### 5 8410-2 ####[facility]ATORYCLIA [id number] [place] [address] [place] RBC (Bld) [#/Vol] 3.85 10*6/uL Low 3.90-5.20 [facility] Comment on above: Order Comment: Speci men Type: BLOOD SPECIMENOrdering Facility: [facility] Address: [address] [place] [address] Performed By: #### 5 8410-2 ####[facility]ATORYCLIA [id number] [place] [address] [place] [facility] WBC (Bld) [#/Vol] 4.79 10*3/uL Normal 3.70-11.00 [facility] Comment on above: Order Comment: Speci men Type: BLOOD SPECIMENOrdering Facility: [facility] Address: [address] [place] [address] Performed By: #### 5 8410-2 ####[facility]ATORYCLIA [id number] [address] [place] aPTT PPPon 06-13-2024 aPTT Coag (PPP) [Time] 51.3 s High 23.0-32.4 [facility] Comment on above: Order Comment: Speci men Type: BLOOD SPECIMEN [facility] Address: [address] [place] [address] Performed By: #### 2 4321-2, 45084-5, 78607-9 #### [facility] CLIA [id number] [address] [facility] aPTT Coag (PPP) [Time] 89.0 s High 23.0-32.4 [facility] Comment on above: Order Comment: Speci men Type: BLOOD SPECIMEN [facility]ing Facility: [facility] Address: [address] [place], [place] [address] Performed By: #### 2 4321-2, 32550-6, #### [facility] CLIA [id number] [address] [place] ALLIED HEALTHon 06-12-2024 ALLIED HEALTH HNO ID: [id number] Author: HELLEN SEVILLA RT(R) Service: Radiology Author [...] PATIENT PRESENTS WITH AN IMPLANTABLE OR ATTACHED TRANSPORTATION PROGRAM DIRECTOR: No RADIOLOGY DEPARTMENT: CT; Exam(s) Completed: Brain PERIPHERAL IV DATA: Not applicable SIGNED BY: RT Reji(R) June 12, 2024 9:13 AM Normal [facility] CBC W Auto Differential pane l (Bld)on 06-12-2024 Basophils (Bld) [#/Vol] 0.03 10*3/uL Normal <0.11 [facility] Comment on above: Order Comment: Speci isabella Type: BLOOD SPECIMEN [facility] Address: [address] [place] [address] Performed By: #### 2 4321-2, 64067-9, #### [facility] CLIA [id number] [address] Basophils/100 WBC (Bld) 0.6 % Normal [facility] Comment on above: Order Comment: Speci men Type: BLOOD SPECIMEN [facility] Address: [address] [place] [address] Performed By: #### 2 4321-2, 35348-6, #### [facility] CLIA [id number] [address] Differential cell count method Nom (Bld) Auto Normal [facility] Comment on above: Order Comment: Speci men Type: BLOOD SPECIMEN [facility] Address: [address] [place] [address] Performed By: #### 2 4321-2, 75542-9, #### [facility] CLIA [id number] [address] [place] Eosinophils (Bld) [#/Vol] 0.05 10*3/uL Normal <0.46 [facility] Comment on above: Order Comment: Speci men Type: BLOOD SPECIMEN [facility] Address: [address] [place] [address] Performed By: #### 2 1-2, 40027-3, #### [facility] CLIA [id number] [address] [place] Eosinophils/100 WBC (Bld) 1.0 % Normal [facility] Comment on above: Order Comment: Speci men Type: BLOOD SPECIMEN [facility] Address: [address] [place] [address] Performed By: #### 2 4321-2, 10300-6, #### [facility] CLIA [id number] [address] [place] Erythrocyte distribution width (RBC) [Ratio] 15.6 % High 11.5-15.0 [facility] Comment on above: Order Comment: Speci men Type: BLOOD SPECIMEN [facility] Address: [address] [place] [address] Performed By: #### 2 4321-2, 66466-1, #### [facility] CLIA [id number] 1 [place] [address] [place] Hematocrit (Bld) [Volume fraction] 34.6 % Low 36.0-46.0 [facility] Comment on above: Order Comment: Speci men Type: BLOOD SPECIMEN [facility] Address: [address] [place] [address] Performed By: #### 2 4321-2, 95604-5, #### [facility] CLIA [id number] 1 [place] [address] [place] Hemoglobin (Bld) [Mass/Vol] 10.6 g/dL Low 11.5-15.5 [facility] Comment on above: Order Comment: Speci men Type: BLOOD SPECIMEN [facility] Address: [address] [place] [address] Performed By: #### 2 4321-2, 99154-8, #### [facility] CLIA [id number] [address] [place] Immature granulocytes (Bld) [#/Vol] 10*3/uL Normal <0.10 [facility] Comment on above: Order Comment: Speci men Type: BLOOD SPECIMEN [facility] Address: [address] [place] [address] Performed By: #### 2 4321-2, 35780-3, #### [facility] CLIA [id number] [address] [place] Immature granulocytes/100 WBC (Bld) 0.2 % Normal [facility] Comment on above: Order Comment: Speci men Type: BLOOD SPECIMEN [facility] Address: [address] [place] [address] Performed By: #### 2 4321-2, 31405-2, #### [facility] CLIA [id number] 1 [place] [address] [place] Lymphocytes (Bld) [#/Vol] 1.65 10*3/uL Normal 1.00-4.00 [facility] Comment on above: Order Comment: Speci men Type: BLOOD SPECIMEN [facility] Address: [address] [place] [address] Performed By: #### 2 4321-2, 62383-5, #### [facility] CLIA [id number] [address] Lymphocytes/100 WBC (Bld) 31.9 % Normal [facility] Comment on above: Order Comment: Speci men Type: BLOOD SPECIMEN [facility] Address: [address] [place] [address] Performed By: #### 2 1-2, 46504-8, #### [facility] CLIA [id number] [address] [place] MCH (RBC) [Entitic mass] 26.2 pg Normal 26.0-34.0 [facility] Comment on above: Order Comment: Speci men Type: BLOOD SPECIMEN [facility] Address: [address] [place] [address] Performed By: #### 2 4321-2, 63546-1, #### [facility] CLIA [id number] [address] [facility] MCHC (RBC) [Mass/Vol] 30.6 g/dL Normal 30.5-36.0 [facility] Comment on above: Order Comment: Speci men Type: BLOOD SPECIMEN [facility] Address: [address] [place] [address] Performed By: #### 2 4321-2, 86815-1, #### [facility] CLIA [id number] [address] MCV (RBC) [Entitic vol] 85.6 fL Normal 80.0-100.0 [facility] Comment on above: Order Comment: Speci men Type: BLOOD SPECIMEN [facility] Address: [address] [place] [address] Performed By: #### 2 4321-2, 76788-8, #### [facility] CLIA [id number] [address] [place] Monocytes (Bld) [#/Vol] 0.46 10*3/uL Normal <0.87 [facility] Comment on above: Order Comment: Speci men Type: BLOOD SPECIMEN [facility]: [facility] Address: [address] [place] [address] Performed By: #### 2 4321-2, 16503-3, #### [facility] CLIA [id number] [address] [facility] Monocytes/100 WBC (Bld) 8.9 % Normal [facility] Comment on above: Order Comment: Speci men Type: BLOOD SPECIMEN [facility]ing Facility: [facility] Address: [address] [place] [address] Performed By: #### 2 1-2, 53446-9, #### [facility] CLIA [id number] [address] STATES [place] [facility] Neutrophils (Bld) [#/Vol] 2.97 10*3/uL Normal 1.45-7.50 [facility] Comment on above: Order Comment: Speci men Type: BLOOD SPECIMEN [facility]ing Facility: [facility] Address: [address] [place] [address] Performed By: #### 2 4321-2, 39972-3, #### [facility] CLIA [id number] [address] STATES [place] [facility] Neutrophils/100 WBC (Bld) 57.4 % Normal [facility] Comment on above: Order Comment: Speci men Type: BLOOD SPECIMEN [facility]ing Facility: [facility] Address: [address] [place] [address] Performed By: #### 2 4321-2, 86783-4, #### [facility] CLIA [id number] [address] [place] Nucleated RBC (Bld) [#/Vol] 10*3/uL Normal <0.01 [facility] Comment on above: Order Comment: Speci men Type: BLOOD SPECIMEN Ordering Facility: [facility] Address: [address] [place] [address] Performed By: #### 2 4321-2, 47216-2, #### [facility] CLIA [id number] [address] [place] Nucleated RBC/100 WBC (Bld) [Ratio] 0.0 /100 WBC Normal [facility] Comment on above: Order Comment: Speci men Type: BLOOD SPECIMEN [facility]ing Facility: [facility] Address: [address] [place] [address] Performed By: #### 2 4321-2, 08540-7, #### [facility] CLIA [id number] [address] Platelet mean volume (Bld) [Entitic vol] 9.6 fL Normal 9.0-12.7 [facility] Comment on above: Order Comment: Speci men Type: BLOOD SPECIMEN [facility] Facility: [facility] Address: [address] [place] [address] Performed By: #### 2 4321-2, 45422-1, #### [facility] CLIA [id number] [address] [place] Platelets (Bld) [#/Vol] 314 10*3/uL Normal 150-400 [facility] Comment on above: Order Comment: Speci men Type: BLOOD SPECIMEN [facility] Facility: [facility] Address: [address] [place] [address] Performed By: #### 2 4321-2, 94992-6, #### [facility] CLIA [id number] [address] [place] RBC (Bld) [#/Vol] 4.04 10*6/uL Normal 3.90-5.20 [facility] Comment on above: Order Comment: Speci men Type: BLOOD SPECIMEN Ordering Facility: [facility] Address: [address] [place], [place] [address] Performed By: #### 2 4321-2, 51329-3, #### [facility] CLIA [id number] 1 [place] [address] [place] WBC (Bld) [#/Vol] 5.17 10*3/uL Normal 3.70-11.00 [facility] Comment on above: Order Comment: Speci men Type: BLOOD SPECIMEN Ordering Facility: [facility] Address: [address] [place], [place] [address] Performed By: #### 2 4321-2, 84583-7, #### [facility] CLIA [id number] [address] [place] CONSULTon 06-12-2024 CONSULT HNO ID: [id number] Author: MINA TALBERT MD Service: Cardiovascular Disease Author Type: Physician Type: Consults Filed: 06/12/2024 10:40 Note Text: CARDIOLOGY CONSULTATION- [facility] Patient Name: Mel Castillo : 1940 PRIMARY CARE PHYSICIAN: Jared Evans MD [address] [place] [address] REFERRING PHYSICIAN No referring provider defined for [...] 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[facility] with history of prior stroke [...] the hospital a few months ago at [facility] she was taking her Eliquis and [...] 25 mg ORAL q 12 H Don Edwarsd DO 25 mg at 06/11/24 213 pantoprazole [...] CONSULT PROGon 06-12-2024 CONSULT PROG HNO ID: [id number] Author: NICOLAS TESFAYE APRN.SHAMIKA Service: Neurology General [...] Score: 1 (06/12/24 0945 : Nicolas Tesfaye, PROJECT PORTFOLIO ANALYST.MANDREL MAKER) 1 MENTAL STATUS: Alert, oriented to person, [...] and Prevention (personally reviewed by Nicolas Tesfaye APRN.MANDREL MAKER): Daily Rounding Date: 06/12/24 Daily Rounding Time: [...] DATE OF EXAM: Jun 12 2024 9:25AM [facility] 0504 - CT BRAIN WO IVCON [...] intracranial hemorrhage. Chronic changes, as detailed above. Rerecording Mixer: DEVEN Transcribe Date/Time: Jun 12 2024 9:42A [...] Speci men Type: BLOOD SPECIMEN [facility] Address: [address] [place] [address] Performed By: #### 2 4321-2, 97828-7, #### [facility] CLIA [id number] [address] STATES [facility] ALP [Catalytic activity/Vol] 88 U/L Normal 34-123 [facility] Comment on above: Order Comment: Speci men Type: BLOOD SPECIMEN [facility] Facility[facility] Address: [address] [place] [address] Performed By: #### 2 4321-2, 59807-5, #### [facility] CLIA [id number] [address] [place] ALT With P-5'-P [Catalytic activity/Vol] 6 U/L Low 7-38 [facility] Comment on above: Order Comment: Speci men Type: BLOOD SPECIMEN [facility] Address: [address] [place] [address] Performed By: #### 2 4321-2, 09384-0, #### [facility] CLIA [id number] [address] [place] Anion gap [Moles/Vol] 13 mmol/L Normal 8-15 [facility] Comment on above: Order Comment: Speci men Type: BLOOD SPECIMEN [facility] Address: [address] [place] [address] Performed By: #### 2 4321-2, 96401-9, #### [facility] CLIA [id number] 1 [place] [address] [place] AST With P-5'-P [Catalytic activity/Vol] 9 U/L Low 13-35 [facility] Comment on above: Order Comment: Speci men Type: BLOOD SPECIMEN [facility] Facility: [facility] Address: [address] [place] [address] Performed By: #### 2 4321-2, 88482-7, #### [facility] CLIA [id number] 1 [place] [address] [place] Bilirubin [Mass/Vol] 0.6 mg/dL Normal 0.2-1.3 [facility] Comment on above: Order Comment: Speci men Type: BLOOD SPECIMEN [facility] Facility[facility] Address: [address] [place] [address] Performed By: #### 2 4321-2, 91262-4, #### [facility] CLIA [id number] 1 [place] [address] [place] Calcium [Mass/Vol] 9.2 mg/dL Normal 8.5-10.2 [facility] Comment on above: Order Comment: Speci men Type: BLOOD SPECIMEN [facility] Facility: [facility] Address: [address] [place] [address] Performed By: #### 2 4321-2, 01762-0, #### [facility] CLIA [id number] 1 [place] [address] [place] Chloride [Moles/Vol] 101 mmol/L Normal 98-107 [facility] Comment on above: Order Comment: Speci men Type: BLOOD SPECIMEN [facility]ing Facility: [facility] Address: [address] [place] [address] Performed By: #### 2 4321-2, 58851-6, #### [facility] CLIA [id number] 1 [place] [address] [place] CO2 [Moles/Vol] 23 mmol/L Normal 22-30 [facility] Comment on above: Order Comment: Speci men Type: BLOOD SPECIMEN Ordering Facility: [facility] Address: [address] [place] [address] Performed By: #### 2 4321-2, 39751-0, #### [facility] CLIA [id number] [address] [place] Creatinine [Mass/Vol] 1.02 mg/dL High 0.58-0.96 [facility] Comment on above: Order Comment: Speci men Type: BLOOD SPECIMEN Ordering Facility: [facility] Address: [address] [place] [address] Performed By: #### 2 4321-2, 14172-1, #### [facility] CLIA [id number] [address] Creatinine and Glomerular filtration rate.predicted panel (S/P/Bld) 54 mL/min/1.73m??? Low >=60 [facility] Comment on above: Order Comment: Specrobson men Type: BLOOD SPECIMEN Ordering Facility: [facility] Address: [address] [place] [address] Result Comment: Isa mated Glomerular Filtration Rate [...] actual GFR. Performed By: #### 2 4321-2, 29672-6, #### [facility] CLIA [id number] 1 [place] [address] [place] Glucose [Mass/Vol] 109 mg/dL High 74-99 [facility] Comment on above: Order Comment: Speci men Type: BLOOD SPECIMEN Ordering Facility: [facility] Address: [address] [place] [address] Result Comment: The [place] [employer] (ADA) provides guidance for cutoff [...] Standards of Medical Care in Diabetes 2016, [place] [employer]. Diabetes Care. 2016.39(Suppl 1). Performed By: #### 2 4321-2, 88502-8, #### [facility] CLIA [id number] [address] [place] [address] [place] Potassium [Moles/Vol] 4.0 mmol/L Normal 3.7-5.1 [facility] Comment on above: Order Comment: Rhina mason Type: BLOOD SPECIMEN Ordering Facility: [facility] Address: [address] [place] [address] Performed By: #### 2 4321-2, 54455-6, #### [facility] CLIA [id number] 1 [place] [address] [place] Protein [Mass/Vol] 6.4 g/dL Normal 6.3-8.0 [facility] Comment on above: Order Comment: Rhina mason Type: BLOOD SPECIMEN [facility] Facility: [facility] Address: [address] [place] [address] Performed By: #### 2 4321-2, 30038-6, #### [facility] CLIA [id number] 1 [place] [address] [place] Sodium [Moles/Vol] 137 mmol/L Normal 136-144 [facility] Comment on above: Order Comment: Samiri isabella Type: BLOOD SPECIMEN Ordering Facility: [facility] Address: [address] [place] [address] Performed By: #### 2 4321-2, 70910-3, #### [facility] CLIA [id number] [address] [place] [address] Urea nitrogen [Mass/Vol] 12 mg/dL Normal 7-21 [facility] Comment on above: Order Comment: Rhina mason Type: BLOOD SPECIMEN Ordering Facility: [facility] Address: [address] [place] [address] Performed By: #### 2 4321-2, 32294-5, 39772-7 #### [facility] CLIA [id number] [address] Magnesium SerPl-mCncon 06-12 Magnesium [Mass/Vol] 2.3 mg/dL Normal 1.7-2.3 [facility] Comment on above: Order Comment: Rhina mason Type: BLOOD SPECIMEN Ordering Facility: [facility] Address: [address] [place] [address] Performed By: #### 2 4321-2, 75462-5, 32304-5 #### [facility] CLIA [id number] [address] [facility] NURSING PROGon 06-12-2024 NURSING PROG HNO ID: [id number] Author: ROBINSON VELÁSQUEZ, RADHA Service: ? Author [...] PT EDon 06-12-2024 PT ED HNO ID: [id number] Author: DOT PETERSON tali Service: Pharmacy Author Type: ? Type: Patient Education Filed: 06/12/2024 16:17 Note Text: Attestation signed by Dot Peterson [facility] at 06/12/2024 4:17 PM I have [...] questions. Patient aware of copay. Nayana Rowan, Positive Printer Operator [facility] THERAPY NTon 06-12-2024 THERAPY NT HNO ID: [id number] Author: LATOYA LONG PT Service: Physical Therapy Author Type: Physical Therapist Type: Therapy (PT/OT/Speech/Resp) Filed: 06/12/2024 15:33 Note Text: Physical Therapy Treatment Summary SERVICE DATE: 06/12/2024 SERVICE TIME: 1445 to 1509 ROOM: [place] [address] PT 6 Clicks Score: 13 DISCHARGE RECOMMENDATIONS [...] Lack of coordination-other TREATMENT INTERVENTIONS Therapeutic Activity (33041), Neuromuscular Reeducation (74211) Timed Code Treatment (minutes): 23 Skilled Treatment Time (minutes): 23 Therapeutic Activity (25552) Treatment Minutes: 10 $ Therapeutic Activity (11370) Billed Units: 1 unit Training and assist with bed mobility, transfers and taking steps in place and side steps along the EOB with the walker. Neuromuscular Reeducation (05434) Treatment Minutes: 13 $ Neuromuscular Reeducation (60493) Billed Units: 1 unit Instructed pt in [...] [facility] THERAPY NT HNO ID: [id number] Author: SAMI WEINBERG OTR/L Service: Occupational Therapy Author Type: Occupational Therapist Type: Therapy (PT/OT/Speech/Resp) Filed: 06/12/2024 08:50 Note Text: Occupational Therapy Evaluation Summary SERVICE DATE: 06/12/2024 SERVICE TIME: 810 to 833 ROOM: [place] [address] OT 6 Clicks Score: 15 DISCHARGE RECOMMENDATIONS [...] and signs-other TREATMENT INTERVENTIONS Evaluation, Therapeutic Activity (91116) Timed Code Treatment (minutes): 8 Skilled Treatment Time (minutes): 23 $ Evaluation - Moderate (97751) Billed Units: 1 unit Therapeutic Activity (80267) Treatment Minutes: 8 $ Therapeutic Activity (50472) Billed Units: 1 unit TRAINING AND EDUCATION PROVIDED Assistive Device Use, Bed Mobility, Benefits of In-Hospital Mobility, Cognitive Stimulation Activities, Discharge Planning, Disease Specific Education, Role of Occupational Therapy, Safety/Judgment, Sitting Balance to Improve Amelia with ADLs/Self-Care THERAPEUTIC SKILLS USED Activity Dosing, [...] Coag (PPP) [Time] 56.1 s High 23.0-32.4 [facility] Comment on above: Order Comment: Speci men Type: BLOOD SPECIMEN Ordering Facility: [facility] Address: [address] [place] [address] [place] [address] Performed By: #### 2 4321-2, 30709-2, 94648-4 #### [facility] CLIA [id number] [address] aPTT Coag (PPP) [Time] 79.0 s High 23.0-32.4 [facility] Comment on above: Order Comment: Speci men Type: BLOOD SPECIMEN Ordering Facility: [facility] Address: [address] [place], [place] [address] Performed By: #### 1 4979-9 #### [facility] CLIA [id number] [address] aPTT Coag (PPP) [Time] 123.9 s High 23.0-32.4 [facility] Comment on above: Order Comment: Speci men Type: BLOOD SPECIMEN Ordering Facility: [facility] Address: [address] [place], [place] [address] Performed By: #### 2 4321-2, 25610-3, #### [facility] CLIA [id number] [address] aPTT Coag (PPP) [Time] 117.3 s High 23.0-32.4 [facility] Comment on above: Order Comment: Speci men Type: BLOOD SPECIMEN Ordering Facility: [facility] Address: [address] [place], [place] [address] Performed By: #### 2 4321-2, 75179-5, 85444-1 #### [facility] CLIA [id number] [address] [place] 36on 06-11-[address] [place] [address] [facility] HNO ID: [id number] Author: FABIO KERR Tech Service: ? Author Type: Human Geography Faculty Member Type: Allied Health Filed: 06/11/2024 14:16 Note [...] PATIENT PRESENTS WITH AN IMPLANTABLE OR ATTACHED TRANSPORTATION PROGRAM DIRECTOR: No RADIOLOGY DEPARTMENT: MR; Exam(s) Completed: Head: Routine Brain [place] MRA MRA Carotid PERIPHERAL IV DATA: Not applicable SIGNED BY: Anne Marie Carrillo June 11, 2024 2:15 PM Normal [facility] CBC W Auto Differential pane l (Bld)on 06-11-2024 Basophils (Bld) [#/Vol] 0.03 10*3/uL Normal <0.11 [facility] Comment on above: Order Comment: Rhina mason Type: BLOOD SPECIMEN Ordering Facility: [facility] Address: [address] [place] [address] Performed By: #### 2 4321-2, 55006-8, #### [facility] CLIA [id number] [address] [place] Basophils/100 WBC (Bld) 0.4 % Normal [facility] Comment on above: Order Comment: Rhina mason Type: BLOOD SPECIMEN Ordering Facility: [facility] Address: [address] [place] [address] Performed By: #### 2 4321-2, 26621-2, #### [facility] CLIA [id number] [address] [place] Differential cell count method Nom (Bld) Auto Normal [facility] Comment on above: Order Comment: Samiri isabella Type: BLOOD SPECIMEN Ordering Facility: [facility] Address: [address] [place] [address] Performed By: #### 2 4321-2, 78742-8, #### [facility] CLIA [id number] [address] [place] Eosinophils (Bld) [#/Vol] 10*3/uL Normal <0.46 [facility] Comment on above: Order Comment: Speci men Type: BLOOD SPECIMEN Ordering Facility: [facility] Address: [address] [place] [address] Performed By: #### 2 4321-2, 37030-9, #### [facility] CLIA [id number] [address] [place] Eosinophils/100 WBC (Bld) 0.3 % Normal [facility] Comment on above: Order Comment: Speci men Type: BLOOD SPECIMEN Ordering Facility: [facility] Address: [address] [place] [address] Performed By: #### 2 4321-2, 68787-3, #### [facility] CLIA [id number] [address] [place] Erythrocyte distribution width (RBC) [Ratio] 15.6 % High 11.5-15.0 [facility] Comment on above: Order Comment: Speci men Type: BLOOD SPECIMEN Ordering Facility: [facility] Address: [address] [place] [address] Performed By: #### 2 4321-2, 05658-5, #### [facility] CLIA [id number] [address] [place] Hematocrit (Bld) [Volume fraction] 37.6 % Normal 36.0-46.0 [facility] Comment on above: Order Comment: Speci men Type: BLOOD SPECIMEN Ordering Facility: [facility] Address: [address] [place] [address] Performed By: #### 2 4321-2, 72065-9, #### [facility] CLIA [id number] [address] [place] Hemoglobin (Bld) [Mass/Vol] 11.5 g/dL Normal 11.5-15.5 [facility] Comment on above: Order Comment: Speci men Type: BLOOD SPECIMEN Ordering Facility: [facility] Address: [address] [place] [address] Performed By: #### 2 4321-2, 10345-2, #### [facility] CLIA [id number] 1 [place] [address] [place] Immature granulocytes (Bld) [#/Vol] 0.03 10*3/uL Normal <0.10 [facility] Comment on above: Order Comment: Speci men Type: BLOOD SPECIMEN Ordering Facility: [facility] Address: [address] [place] [address] Performed By: #### 2 4321-2, 39336-9, #### [facility] CLIA [id number] [address] [place] Immature granulocytes/100 WBC (Bld) 0.4 % Normal [facility] Comment on above: Order Comment: Speci men Type: BLOOD SPECIMEN Ordering Facility: [facility] Address: [address] [place] [address] Performed By: #### 2 1-2, 93163-2, #### [facility] CLIA [id number] 1 [place] [address] [place] Lymphocytes (Bld) [#/Vol] 1.26 10*3/uL Normal 1.00-4.00 [facility] Comment on above: Order Comment: Speci men Type: BLOOD SPECIMEN Ordering Facility: [facility] Address: [address] [place] [address] Performed By: #### 2 4321-2, 92339-1, #### [facility] CLIA [id number] [address] [place] Lymphocytes/100 WBC (Bld) 16.9 % Normal [facility] Comment on above: Order Comment: Speci men Type: BLOOD SPECIMEN Ordering Facility: [facility] Address: [address] [place] [address] Performed By: #### 2 4321-2, , #### [facility] CLIA [id number] [address] MCH (RBC) [Entitic mass] 26.6 pg Normal 26.0-34.0 [facility] Comment on above: Order Comment: Speci men Type: BLOOD SPECIMEN Ordering Facility: [facility] Address: [address] [place] [address] Performed By: #### 2 4320-2, 68068-7, #### [facility] CLIA [id number] [address] MCHC (RBC) [Mass/Vol] 30.6 g/dL Normal 30.5-36.0 [facility] Comment on above: Order Comment: Speci men Type: BLOOD SPECIMEN Ordering Facility: [facility] Address: [address] [place] [address] Performed By: #### 2 4320-2, , #### [facility] CLIA [id number] [address] MCV (RBC) [Entitic vol] 87.0 fL Normal 80.0-100.0 [facility] Comment on above: Order Comment: Speci men Type: BLOOD SPECIMEN Ordering Facility: [facility] Address: [address] [place] [address] Performed By: #### 2 4320-2, 78325-4, #### [facility] CLIA [id number] [address] Monocytes (Bld) [#/Vol] 0.68 10*3/uL Normal <0.87 [facility] Comment on above: Order Comment: Speci men Type: BLOOD SPECIMEN Ordering Facility: [facility] Address: [address] [place] [address] Performed By: #### 2 432-2, 48945-9, #### [facility] CLIA [id number] [address] [place] [address] [place] Monocytes/100 WBC (Bld) 9.1 % Normal [facility] Comment on above: Order Comment: Speci men Type: BLOOD SPECIMEN Ordering Facility: [facility] Address: [address] [place] [address] Performed By: #### 2 4321-2, 85534-6, #### [facility] CLIA [id number] [address] [place] [address] [place] Neutrophils (Bld) [#/Vol] 5.43 10*3/uL Normal 1.45-7.50 [facility] Comment on above: Order Comment: Speci men Type: BLOOD SPECIMEN Ordering Facility: [facility] Address: [address] [place] [address] Performed By: #### 2 4321-2, 84144-6, #### [facility] CLIA [id number] [address] [place] Neutrophils/100 WBC (Bld) 72.9 % Normal [facility] Comment on above: Order Comment: Speci men Type: BLOOD SPECIMEN Ordering Facility: [facility] Address: [address] [place] [address] Performed By: #### 2 4321-2, 48008-9, #### [facility] CLIA [id number] [address] [place] [address] [place] Nucleated RBC (Bld) [#/Vol] 10*3/uL Normal <0.01 [facility] Comment on above: Order Comment: Speci men Type: BLOOD SPECIMEN Ordering Facility: [facility] Address: [address] [place] [address] Performed By: #### 2 4321-2, 81529-1, #### [facility] CLIA [id number] [address] [place] Nucleated RBC/100 WBC (Bld) [Ratio] 0.0 /100 WBC Normal [facility] Comment on above: Order Comment: Speci men Type: BLOOD SPECIMEN Ordering Facility: [facility] Address: [address] [place] [address] Performed By: #### 2 4321-2, 81540-8, #### [facility] CLIA [id number] [address] [place] Platelet mean volume (Bld) [Entitic vol] 9.5 fL Normal 9.0-12.7 [facility] Comment on above: Order Comment: Speci men Type: BLOOD SPECIMEN Ordering Facility: [facility] Address: [address] [place] [address] Performed By: #### 2 4321-2, 22488-7, #### [facility] CLIA [id number] [address] [place] Platelets (Bld) [#/Vol] 329 10*3/uL Normal 150-400 [facility] Comment on above: Order Comment: Speci men Type: BLOOD SPECIMEN Ordering Facility: [facility] Address: [address] [place] [address] Performed By: #### 2 4321-2, 89824-0, #### [facility] CLIA [id number] [address] [place] RBC (Bld) [#/Vol] 4.32 10*6/uL Normal 3.90-5.20 [facility] Comment on above: Order Comment: Speci men Type: BLOOD SPECIMEN Ordering Facility: [facility] Address: [address] [place] [address] Performed By: #### 2 4321-2, 30685-0, #### [facility] CLIA [id number] [address] [place] [address] [place] WBC (Bld) [#/Vol] 7.45 10*3/uL Normal 3.70-11.00 [facility] Comment on above: Order Comment: Speci men Type: BLOOD SPECIMEN Ordering Facility: [facility] Address: [address] [place] [address] Performed By: #### 2 4321-2, 33499-7, 01742-3 #### [facility] [place] [id number] [address] [facility] CONSULTon 06-11-2024 CONSULT HNO ID: [id number] Author: JENNY WALLACE MD Service: Neurology General [...] cannot ambulate. Pre-admission Pre-morbid mRS: Premorbid Modified Delanson Score: 0 - No symptoms at all [...] Normal [facility] CONSULT HNO ID: [id number] Author: TOÑO MANZO MD Service: Urology Author [...] discussed with the Patient or Patient's Authorized [employer] Cente[employer] Edger. As applicable, any other physician, advance practice provider, medical student, or other health professional student that will be observing or involved in the sensitive examination for educational or training purposes was discussed with the Patient or Authorized [employer] Edger. The Patient or Authorized [employer] Centerer [employer] Edger has agreed to proceed with the sensitive [...] lesion. Consider follow-up renal CT/MR for characterization. Rerecording Mixer: DEVEN Transcribe D (more content not included)... Normal [facility] CONSULT PROGon 06-11-2024 CONSULT PROG HNO ID: [id number] Author: CARL PERSAUD RPh Service: Pharmacy Author [...] this patient. Carl Persaud RPh [facility] CONSULT PROG HNO ID: [id number] Author: CARL PERSAUD RPh Service: Pharmacy Author [...] on 06/10/24. Patient was being managed by [facility] but was recently released due to insurance [...] DATE OF EXAM: Jun 11 2024 3:07AM [facility] 0530 - CT ABD/PEL W IVCON [...] to bilateral greater trochanters, similar to prior. Manager Telemetry (topogram) images: No additional findings. IMPRESSION: 1. Mild bilateral hydroureteronephrosis to the pelvic brim without evidence of ureterolithiasis. 2. Indeterminate left renal lesion. Consider follow-up renal CT/MR for characterization. Rerecording Mixer: [facility] Transcribe Date/Time: Jun 11 2024 3:09A Dictated by : RAF AYALA MD This examination was interpreted and the report reviewed and electronically signed by: RAF AYALA MD on Jun 11 2024 3:40AM EST [id number] Normal [facility] CT BRAIN WO IVCONon 06-11-20 CT BRAIN WO IVCON * * *Final Report* * * DATE OF EXAM: Jun 11 2024 3:05AM [facility] 0504 - CT BRAIN WO IVCON [...] changes and small remote right occipital infarct. Rerecording Mixer: DEVEN Transcribe Date/Time: Jun 11 2024 3:05A [...] Hospital Date of service: 06/11/2024 11:20:46 AM [facility] Ordering physician: DON EDWARDS Indication: TIA Technologist: Dinora Fields [facility] Interpreting physician: Nando Costa MD PATIENT: Name: [...] * * * Final * * * [employer] Medical Image : [id number] [id number] Normal [facility] ED NOTEon 06-11-2024 ED NOTE HNO ID: [id number] Author: GISSELL CARRINGTON RN Service: Emergency Medicine Author Type: Registered Nurse Type: ED Notes Filed: 06/11/2024 05:58 Note Text: Gave report to assigned RN on 2099. Assigned RN is ready to receive patient at this time. Normal [facility] ED NOTE HNO ID: [id number] Author: GISSELL CARRINGTON RN Service: Emergency Medicine [...] Speci men Type: BLOOD SPECIMEN Ordering Facility: [facility] Address: [address] [place] [address] Performed By: #### 2 4321-2, 70660-7, 24769-9 #### [facility] CLIA [id number] [address] HIGH SENSITIVITY TROPONIN T (THIRD) 3 HRS AFTER INITIALon 06-11-2024 Troponin T.cardiac High sensitivity method [Mass/Vol] 14 ng/L High <12 [facility] Comment on above: Order Comment: Speci men Type: BLOOD SPECIMEN Ordering Facility: [facility] Address: [address] [place] [address] Performed By: #### 2 4321-2, 34691-7, 80537-2 #### [facility] CLIA [id number] [address] HISTORY PHYSICALon HISTORY PHYSICAL HNO ID: [id number] Author: DON EDWARDS DO Service: Hospital Medicine Author Type: Physician Type: H&P Filed: 06/11/2024 14:14 Note Text: DEPARTMENT OF HOSPITAL MEDICINE HISTORY AND PHYSICAL EXAM SERVICE DATE: 06/11/2024 SERVICE TIME: 10:25 AM Primary Care Physician: Jared Evans MD, MD NIGHT AND WEEKEND COVERAGE: [place] COVERAGE: From 7am - 7pm, please call [phone] After 7pm, please call cross cover pager #[phone] Subjective CHIEF COMPLAINT: dizziness with vomiting, slurred [...] Hypothyroidism PAST SURGICAL HISTORY Procedure Laterality Date DANSD, DIAG AND/OR THERAPEUTIC NASAL ENDOS,DIAG,UNI/ BILATERAL TOTAL [...] Drains, and Airways Line Duration Peripheral 06/11/24 [facility] Left Antecubital 20 Gauge <1 day Drain Duration External Collection Device 06/11/24 0250 [facility] <1 day Reviewed lines and needs to be continued: REASONS: Telemetry DATA: Diagnostic tests reviewed for today's visit: Most recent lab (more content not included)... Normal [facility] MRA BRAIN WO IVCONon 024 MRA BRAIN WO IVCON * * *Final Report* * * DATE OF EXAM: Jun 11 2024 3:52PM [facility] 0272 - MRA BRAIN WO IVCON / PROCEDURE REASON: Neuro deficit, acute, stroke suspected * * * * Physician Interpretation * * * * EXAMINATION: MRI BRAIN WO IVCON, MRA BRAIN WO IVCON, MRA CAROTID WO IVCON CLINICAL HISTORY: Neuro deficit, acute, stroke suspected TECHNIQUE: Routine noncontrast MRI brain protocol including diffusion images. Intracranial and carotid 3D dgim-xk-cooill MRA. 3D maximum intensity projection images were [...] Patency: Bilateral Dominance: Left INTRACRANIAL MRA: [place] is patent without significant stenosis. 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 IMPRESSION: Motion degraded study. 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 No hemorrhagic transformation or significant mass effect. Unremarkable carotid MRA. 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 Rerecording Mix[facility] Transcribe Date/Time: Jun 11 2024 3:54P Dictated by : ESTHER MCKEON MD This examination was interpreted and the report reviewed and electronically signed by: ESTHER MCKEON MD on Jun 11 2024 4:13PM EST [id number] Normal [facility] MRA CAROTID WO IVCONon 06-11 MRA CAROTID WO IVCON * * *Final Report* * * DATE OF EXAM: Jun 11 2024 3:52PM [facility] 0275 - MRA CAROTID WO IVCON / PROCEDURE REASON: Neuro deficit, acute, stroke suspected * * * * Physician Interpretation * * * * EXAMINATION: MRI BRAIN WO IVCON, MRA BRAIN WO IVCON, MRA CAROTID WO IVCON CLINICAL HISTORY: Neuro deficit, acute, stroke suspected TECHNIQUE: Routine noncontrast MRI brain protocol including diffusion images. Intracranial and carotid 3D uvyg-sm-rtoqse MRA. 3D maximum intensity projection images were [...] Patency: Bilateral Dominance: Left INTRACRANIAL MRA: [place] is patent without significant stenosis. 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 IMPRESSION: Motion degraded study. 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 No hemorrhagic transformation or significant mass effect. Unremarkable carotid MRA. 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 Rerecording Mixer: [facility] Transcribe Date/Time: Jun 11 2024 3:54P Dictated by : ESTHER MCKEON MD This examination was interpreted and the report reviewed and electronically signed by: ESTHER MCKEON MD on Jun 11 2024 4:13PM EST [id number] Normal [facility] MRI BRAIN WO IVCONon 024 MRI BRAIN WO IVCON * * *Final Report* * * DATE OF EXAM: Jun 11 2024 3:52PM [facility] 0294 - MRI BRAIN WO IVCON / PROCEDURE REASON: stroke * * * * Physician Interpretation * * * * EXAMINATION: MRI BRAIN WO IVCON, MRA BRAIN WO IVCON, MRA CAROTID WO IVCON CLINICAL HISTORY: Neuro deficit, acute, stroke suspected TECHNIQUE: Routine noncontrast MRI brain protocol including diffusion images. Intracranial and carotid 3D ngij-db-rgphie MRA. 3D maximum intensity projection images were [...] Patency: Bilateral Dominance: Left INTRACRANIAL MRA: [place] is patent without significant stenosis. 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 IMPRESSION: Motion degraded study. 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 No hemorrhagic transformation or significant mass effect. Unremarkable carotid MRA. 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 Rerecording Mixer: DEVEN Transcribe Date/Time: Jun 11 2024 3:54P [...] Speci men Type: BLOOD SPECIMEN Ordering Facility: [facility] Address: [address] [place] [address] Result Comment: Mayra min K Antagonist (VKA) Therapeutic Range: INR 2 to 3 (Target INR of 2.5) Note: For patients treated with VKA drugs, such as warfarin, the [place] [employer] 2012 Guideline recommends [...] Chest 2012, 141:7S-47S Daren HOYT, et al. [facility] 2017, 70: 252-289 Performed By: #### 2 4321-2, 35962-1, #### [facility] CLIA [id number] [address] [place] PT Coag (PPP) [Time] 12.6 s Normal 9.7-13.0 [facility] Comment on above: Order Comment: Speci men Type: BLOOD SPECIMEN Ordering Facility: [facility] Address: [address] [place] [address] Performed By: #### 2 4321-2, 72604-0, #### [facility] CLIA [id number] [address] [place] THERAPY NTon 06-11-2024 THERAPY NT HNO ID: [id number] Author: BASILIA MAGALLANES CCC-ASSISTANT PROFESSOR SURGICAL TECHNOLOGY Service: Speech/Swallow Author Type: Speech Language Pathologist Type: Therapy (PT/OT/Speech/Resp) Filed: 06/11/2024 09:44 Note Text: Speech Therapy Clinical Swallow Evaluation SERVICE DATE: 06/11/2024 SERVICE TIME: 915 to 930 ROOM: [place] [address] IMPRESSION: Functional oropharyngeal phases of swallowing: without [...] Skilled Need Interventions Provided: Clinical Swallow Evaluation (48992) $ Clinical Swallow Evaluation (11970) Billed Units: 1 unit Training and Education [...] for this therapy evaluation/treatment. SIGNATURE: Basilia Magallanes CCC-ASSISTANT PROFESSOR SURGICAL TECHNOLOGY PATIENT NAME: Mel Castillo DATE: June 11, 2024 TIME: 9:39 AM Normal [facility] THERAPY NT HNO ID: [id number] Author: MEHREEN MANCERA, PT Service: Physical Therapy Author Type: Physical Therapist Type: Therapy (PT/OT/Speech/Resp) Filed: 06/11/2024 09:27 Note Text: Physical Therapy Evaluation Summary SERVICE DATE: 06/11/2024 SERVICE TIME: 804 to 841 ROOM: [place] [address] PT 6 Clicks Score: 18 DISCHARGE RECOMMENDATIONS [...] and signs-other TREATMENT INTERVENTIONS Evaluation, Canalith Repositioning (71437) Skilled Treatment Time (minutes): 37 $ Evaluation-Moderate (91870) Billed Units: 1 unit $ Canalith Repositioning (16269) Billed Units: 1 unit Repositioning maneuver for [...] postion. L torsional upbeating nystagmus (very brisk) [place], Right: Neg Horizontal Canals, Left: Pt with [...] Comment: Speci men Type: URINE SPECIMENOrdering Facility: [facility] Address: [address] [place] [address] Performed By: #### 2 4356-8 ####[facility] LABORATORYCLIA [id number] [address] [place] Clarity (Unsp spec) Clear Normal Clear [facility] Comment on above: Order Comment: Speci men Type: URINE SPECIMENOrdering Facility: [facility] Address: [address] [place] [address] Performed By: #### 2 4356-8 ####[facility] LABORATORYCLIA [id number] [address] [place] Color (U) Light Yellow Normal yellow [facility] Comment on above: Order Comment: Speci men Type: URINE SPECIMENOrdering Facility: [facility] Address: [address] [place] [address] Performed By: #### 2 4356-8 ####[facility] LABORATORYCLIA [id number] [address] [place] Glucose Test strip (U) [Mass/Vol] Negative Normal Trace, Negative [facility] Comment on above: Order Comment: Speci men Type: URINE SPECIMENOrdering Facility: [facility] Address: [address] [place] [address] Performed By: #### 2 4356-8 ####[facility] LABORATORYCLIA [id number] [address] [place] Hemoglobin Ql (U) Trace Normal Negative, Trace [facility] Comment on above: Order Comment: Speci men Type: URINE SPECIMENOrdering Facility: [facility] Address: [address] [place] [address] Performed By: #### 2 4356-8 ####[facility] LABORATORYCLIA [id number] [address] [facility] Ketones Ql (U) Negative Normal Negative, Trace [facility] Comment on above: Order Comment: Speci men Type: URINE SPECIMENOrdering Facility: [facility] Address: [address] [place] [address] Performed By: #### 2 4356-8 ####[facility] LABORATORYCLIA [id number] [address] [facility] Leukocyte esterase Test strip Ql (U) Negative Normal Negative, 25 Jose Luis/uL [facility] Comment on above: Order Comment: Speci men Type: URINE SPECIMENOrdering Facility: [facility] Address: [address] [place] [address] Performed By: #### 2 4356-8 ####[facility] LABORATORYCLIA [id number] [address] STATES OF [facility] Nitrite Ql (U) Negative Normal Negative [facility] Comment on above: Order Comment: Speci men Type: URINE SPECIMENOrdering Facility: [facility] Address: [address] [place] [address] Performed By: #### 2 4356-8 ####[facility] LABORATORYCLIA [id number] [address] [place] pH (U) [pH] High 5.0-8.0 [facility] Comment on above: Order Comment: Speci men Type: URINE SPECIMENOrdering Facility: [facility] Address: [address] [place] [address] Performed By: #### 2 4356-8 ####[facility] LABORATORYCLIA [id number] [address] [place] Protein (U) [Mass/Vol] 1+ Abnormal Trace , Negative [facility] Comment on above: Order Comment: Speci men Type: URINE SPECIMENOrdering Facility: [facility] Address: [address] [place] [address] Performed By: #### 2 4356-8 ####[facility] LABORATORYCLIA [id number] [address] [place] [facility] RBC LM.HPF (Urine sed) [#/Area] 6-10 /HPF Abnormal 0-3 /HPF [facility] Comment on above: Order Comment: Speci men Type: URINE SPECIMENOrdering Facility: [facility] Address: [address] [place] [address] Performed By: #### 2 4356-8 ####[facility] LABORATORYCLIA [id number] [address] [place] [facility] Specific gravity (U) [Rel density] 1.039 High 1.005-1.030 [facility] Comment on above: Order Comment: Speci men Type: URINE SPECIMENOrdering Facility: [facility] Address: [address] [place] [address] Performed By: #### 2 4356-8 ####[facility] LABORATORYCLIA [id number] [address] Urobilinogen Ql (U) Normal Normal Normal [facility] Comment on above: Order Comment: Speci men Type: URINE SPECIMENOrdering Facility: [facility] Address: [address] [place] [address] Performed By: #### 2 4356-8 ####[facility] LABORATORYCLIA [id number] [address] [place] [facility] WBC LM.HPF (Urine sed) [#/Area] 0-5 /HPF Normal 0-5 /HPF [facility] Comment on above: Order Comment: Speci men Type: URINE SPECIMENOrdering Facility: [facility] Address: [address] [place] [address] Performed By: #### 2 4356-8 ####[facility] LABORATORYCLIA [id number] [address] aPTT PPPon 06-11-2024 aPTT Coag (PPP) [Time] 28.2 s Normal 23.0-32.4 [facility] Comment on above: Order Comment: Speci men Type: BLOOD SPECIMENOrdering Facility: [facility] Address: [address] [place] [address] Performed By: #### 1 4979-9 ####[facility] LABORATORYCLIA [id number] [address] aPTT Coag (PPP) [Time] 28.9 s Normal 23.0-32.4 [facility] Comment on above: Order Comment: Speci men Type: BLOOD SPECIMEN [facility] Address: [address] [place] [address] Performed By: #### 2 4321-2, 82662-9, #### [facility] CLIA [id number] [address] CBC W Auto Differential pane l (Bld)on 06-10-2024 Basophils (Bld) [#/Vol] 0.04 10*3/uL Normal <0.11 [facility] Comment on above: Order Comment: Speci men Type: BLOOD SPECIMEN [facility] Address: [address] [place] [address] Performed By: #### 2 4321-2, 79964-4, #### [facility] CLIA [id number] [address] Basophils/100 WBC (Bld) 0.7 % Normal [facility] Comment on above: Order Comment: Speci men Type: BLOOD SPECIMEN [facility] Address: [address] [place] [address] Performed By: #### 2 4321-2, 34161-9, #### [facility] CLIA [id number] [address] Differential cell count method Nom (Bld) Auto Normal [facility] Comment on above: Order Comment: Speci men Type: BLOOD SPECIMEN [facility] Address: [address] [place] [address] Performed By: #### 2 4321-2, 80548-7, #### [facility] CLIA [id number] [address] [place] Eosinophils (Bld) [#/Vol] 10*3/uL Normal <0.46 [facility] Comment on above: Order Comment: Speci men Type: BLOOD SPECIMEN [facility] Address: [address] [place] [address] Performed By: #### 2 1-2, 68432-4, #### [facility] CLIA [id number] [address] [place] Eosinophils/100 WBC (Bld) 0.2 % Normal [facility] Comment on above: Order Comment: Speci men Type: BLOOD SPECIMEN [facility] Address: [address] [place] [address] Performed By: #### 2 4320-2, 95087-7, #### [facility] CLIA [id number] [address] [place] Erythrocyte distribution width (RBC) [Ratio] 15.6 % High 11.5-15.0 [facility] Comment on above: Order Comment: Speci men Type: BLOOD SPECIMEN [facility] Address: [address] [place] [address] Performed By: #### 2 4320-2, 46754-8, #### [facility] CLIA [id number] [address] [place] Hematocrit (Bld) [Volume fraction] 37.5 % Normal 36.0-46.0 [facility] Comment on above: Order Comment: Speci men Type: BLOOD SPECIMEN [facility] Address: [address] [place] [address] Performed By: #### 2 1-2, 83363-2, #### [facility] CLIA [id number] [address] [place] Hemoglobin (Bld) [Mass/Vol] 11.4 g/dL Low 11.5-15.5 [facility] Comment on above: Order Comment: Speci men Type: BLOOD SPECIMEN [facility] Address: [address] [place] [address] Performed By: #### 2 4321-2, 75811-0, #### [facility] CLIA [id number] [address] [place] [address] [place] Immature granulocytes (Bld) [#/Vol] 10*3/uL Normal <0.10 [facility] Comment on above: Order Comment: Speci men Type: BLOOD SPECIMEN [facility] Address: [address] [place] [address] Performed By: #### 2 1-2, 46072-9, #### [facility] CLIA [id number] [address] [place] Immature granulocytes/100 WBC (Bld) 0.4 % Normal [facility] Comment on above: Order Comment: Speci men Type: BLOOD SPECIMEN [facility] Address: [address] [place] [address] Performed By: #### 2 4320-2, 47300-2, #### [facility] CLIA [id number] [address] [place] Lymphocytes (Bld) [#/Vol] 0.61 10*3/uL Low 1.00-4.00 [facility] Comment on above: Order Comment: Speci men Type: BLOOD SPECIMEN [facility] Address: [address] [place] [address] Performed By: #### 2 1-2, 66691-8, #### [facility] CLIA [id number] [address] [place] Lymphocytes/100 WBC (Bld) 10.8 % Normal [facility] Comment on above: Order Comment: Speci men Type: BLOOD SPECIMEN [facility] Address: [address] [place] [address] Performed By: #### 2 4321-2, 72141-7, #### [facility] CLIA [id number] [address] MCH (RBC) [Entitic mass] 26.2 pg Normal 26.0-34.0 [facility] Comment on above: Order Comment: Speci men Type: BLOOD SPECIMEN [facility] Address: [address] [place] [address] Performed By: #### 2 1-2, 83301-6, #### [facility] CLIA [id number] [address] MCHC (RBC) [Mass/Vol] 30.4 g/dL Low 30.5-36.0 [facility] Comment on above: Order Comment: Speci men Type: BLOOD SPECIMEN [facility] Address: [address] [place] [address] Performed By: #### 2 4320-2, 58010-7, #### [facility] CLIA [id number] [address] MCV (RBC) [Entitic vol] 86.2 fL Normal 80.0-100.0 [facility] Comment on above: Order Comment: Speci men Type: BLOOD SPECIMEN [facility] Address: [address] [place] [address] Performed By: #### 2 4320-2, 97275-1, #### [facility] CLIA [id number] [address] Monocytes (Bld) [#/Vol] 0.21 10*3/uL Normal <0.87 [facility] Comment on above: Order Comment: Speci men Type: BLOOD SPECIMEN [facility] Address: [address] [place] [address] Performed By: #### 2 4321-2, 37266-5, #### [facility] CLIA [id number] [address] [place] [address] [place] Monocytes/100 WBC (Bld) 3.7 % Normal [facility] Comment on above: Order Comment: Speci men Type: BLOOD SPECIMEN [facility] Address: [address] [place] [address] Performed By: #### 2 4321-2, 86285-9, #### [facility] CLIA [id number] [address] [place] [address] [place] Neutrophils (Bld) [#/Vol] 4.78 10*3/uL Normal 1.45-7.50 [facility] Comment on above: Order Comment: Speci men Type: BLOOD SPECIMEN [facility] Address: [address] [place] [address] Performed By: #### 2 4321-2, 86913-0, #### [facility] CLIA [id number] [address] [place] Neutrophils/100 WBC (Bld) 84.2 % Normal [facility] Comment on above: Order Comment: Speci men Type: BLOOD SPECIMEN [facility] Address: [address] [place] [address] Performed By: #### 2 4321-2, 44615-9, #### [facility] CLIA [id number] [address] [place] [address] [place] Nucleated RBC (Bld) [#/Vol] 10*3/uL Normal <0.01 [facility] Comment on above: Order Comment: Speci men Type: BLOOD SPECIMEN [facility] Address: [address] [place] [address] Performed By: #### 2 4321-2, 00412-7, #### [facility] CLIA [id number] [address] [place] [address] [place] Nucleated RBC/100 WBC (Bld) [Ratio] 0.0 /100 WBC Normal [facility] Comment on above: Order Comment: Speci men Type: BLOOD SPECIMEN [facility] Address: [address] [place] [address] Performed By: #### 2 4321-2, 40093-8, #### [facility] CLIA [id number] [address] [place] Platelet mean volume (Bld) [Entitic vol] 9.4 fL Normal 9.0-12.7 [facility] Comment on above: Order Comment: Speci men Type: BLOOD SPECIMEN [facility] Address: [address] [place] [address] Performed By: #### 2 4321-2, 51155-3, #### [facility] CLIA [id number] [address] [place] Platelets (Bld) [#/Vol] 330 10*3/uL Normal 150-400 [facility] Comment on above: Order Comment: Speci men Type: BLOOD SPECIMEN [facility] Address: [address] [place] [address] Performed By: #### 2 4321-2, 06146-3, #### [facility] CLIA [id number] [address] [place] [address] [place] RBC (Bld) [#/Vol] 4.35 10*6/uL Normal 3.90-5.20 [facility] Comment on above: Order Comment: Speci men Type: BLOOD SPECIMEN [facility] Address: [address] [place] [address] Performed By: #### 2 4321-2, 15115-1, #### [facility] CLIA [id number] [address] [place] [address] [place] WBC (Bld) [#/Vol] 5.67 10*3/uL Normal 3.70-11.00 [facility] Comment on above: Order Comment: Speci men Type: BLOOD SPECIMEN [facility] Address: [address] [place] [address] Performed By: #### 2 4321-2, 73025-4, 72122-9 #### [facility] CLIA [id number] [address] Comprehensive metabolic 2000 panelon 06-10-2024 Albumin [Mass/Vol] 4.2 g/dL Normal 3.9-4.9 [facility] Comment on above: Order Comment: Speci men Type: BLOOD SPECIMENOrdering Facility: [facility] Address: [address] [place] [address] Performed By: #### 3 016-3, 82653-9, 302-7, 41983-3 ####[facility] LABORATORYCLIA [id number] [address] STATES [facility] ALP [Catalytic activity/Vol] 99 U/L Normal 34-123 [facility] Comment on above: Order Comment: Speci men Type: BLOOD SPECIMENOrdering Facility: [facility] Address: [address] [place] [address] Performed By: #### 3 016-3, 57665-4, 3023-7, 41443-5 ####[facility] LABORATORYCLIA [id number] [address] [facility] ALT With P-5'-P [Catalytic activity/Vol] 8 U/L Normal 7-38 [facility] Comment on above: Order Comment: Speci men Type: BLOOD SPECIMENOrdering Facility: [facility] Address: [address] [place] [address] Performed By: #### 3 016-3, 07602-1, 302-7, 25184-4 ####[facility] LABORATORYCLIA [id number] [place] [id number] [place] [facility] Anion gap [Moles/Vol] 12 mmol/L Normal 8-15 [facility] Comment on above: Order Comment: Speci men Type: BLOOD SPECIMENOrdering Facility: [facility] Address: [address] [place] [address] Performed By: #### 3 016-3, 49591-1, 302-7, 36011-2 ####[facility] LABORATORYCLIA [id number] [place] [address] [place] AST With P-5'-P [Catalytic activity/Vol] 12 U/L Low 13-35 [facility] Comment on above: Order Comment: Speci men Type: BLOOD SPECIMENOrdering Facility: [facility] Address: [address] [place] [address] Performed By: #### 3 016-3, 07595-9, 3024-01, 41753-5 ####[facility] LABORATORYCLIA [id number] [place] [address] [place] Bilirubin [Mass/Vol] 0.4 mg/dL Normal 0.2-1.3 [facility] Comment on above: Order Comment: Speci men Type: BLOOD SPECIMENOrdering Facility: [facility] Address: [address] [place] [address] Performed By: #### 3 016-3, 48451-3, 3024-01, ####[facility] [id number] [place] [address] [place] Calcium [Mass/Vol] 9.5 mg/dL Normal 8.5-10.2 [facility] Comment on above: Order Comment: Speci men Type: BLOOD SPECIMENOrdering Facility: [facility] Address: [address] [place] [address] Performed By: #### 3 016-3, 28432-0, 3024-01, ####[facility] LABORATORYCLIA [id number] [place] [address] [place] Chloride [Moles/Vol] 101 mmol/L Normal 98-107 [facility] Comment on above: Order Comment: Speci men Type: BLOOD SPECIMENOrdering Facility: [facility] Address: [address] [place] [address] Performed By: #### 3 016-3, 08429-7, 3024-01, 88954-2 ####[facility] LABORATORYCLIA [id number] [address] [place] CO2 [Moles/Vol] 23 mmol/L Normal 22-30 [facility] Comment on above: Order Comment: Rhina mason Type: BLOOD SPECIMENOrdering Facility: [facility] Address: [address] [place] [address] Performed By: #### 3 016-3, 77456-6, 3024-7, 42944-4 ####[facility] LABORATORYCLIA [id number] [address] [place] Creatinine [Mass/Vol] 0.87 mg/dL Normal 0.58-0.96 [facility] Comment on above: Order Comment: Rhina mason Type: BLOOD SPECIMENOrdering Facility: [facility] Address: [address] [place] [address] Performed By: #### 3 016-3, 40673-5, 3024-7, 09612-9 ####[facility] [id number] [address] Creatinine and Glomerular filtration rate.predicted panel (S/P/Bld) 66 mL/min/1.73m??? Normal >=60 [facility] Comment on above: Order Comment: Rhina mason Type: BLOOD SPECIMENOrdering Facility: [facility] Address: [address] [place] [address] Result Comment: Isa mated Glomerular Filtration Rate [...] actual GFR. Performed By: #### 3 016-3, 22695-2, 3024-7, 96785-5 ####[facility] LABORATORYCLIA [id number] [address] [place] Glucose [Mass/Vol] 157 mg/dL High 74-99 [facility] Comment on above: Order Comment: Rhina mason Type: BLOOD SPECIMENOrdering Facility: [facility] Address: [address] [place] [id number] Result Comment: The [place] [employer] (ADA) provides guidance for cutoff [...] Standards of Medical Care in Diabetes 2016, [place] [employer]. Diabetes Care. 2016.39(Suppl 1). Performed By: #### 3 016-3, 32213-7, 3023-7, 69146-6 ####[facility] LABORATORYCLIA [id number] [place] [address] [place] Potassium [Moles/Vol] 4.3 mmol/L Normal 3.7-5.1 [facility] Comment on above: Order Comment: Speci men Type: BLOOD SPECIMENOrdering Facility: [facility] Address: [address] [place] [address] Performed By: #### 3 016-3, 31686-7, 7, 28655-2 ####[facility] LABORATORYCLIA [id number] [place] [address] [place] Protein [Mass/Vol] 7.1 g/dL Normal 6.3-8.0 [facility] Comment on above: Order Comment: Speci men Type: BLOOD SPECIMENOrdering Facility: [facility] Address: [address] [place] [id number] Performed By: #### 3 016-3, 90532-8, 7, 56546-3 ####[facility] LABORATORYCLIA [id number] [place] [address] [place] Sodium [Moles/Vol] 136 mmol/L Normal 136-144 [facility] Comment on above: Order Comment: Speci men Type: BLOOD SPECIMENOrdering Facility: [facility] Address: [address] [place], [place] [address] Performed By: #### 3 016-3, 50245-0, 3024-7, 59589-6 ####[facility] LABORATORYCLIA [id number] [place] [id number] [place] [facility] Urea nitrogen [Mass/Vol] 14 mg/dL Normal 7-21 [facility] Comment on above: Order Comment: Speci men Type: BLOOD SPECIMENOrdering Facility: [facility] Address: [address] [place], [place] [address] Performed By: #### 3 016-3, 16825-6, 3024-7, 02872-2 ####[facility] LABORATORYCLIA [id number] [address] [facility] ECG COMPLETEon 06-10-2024 ECG COMPLETE Ventricular Rate : 6 4 BPM QRS Duration : 90 ms Q-T Interval : 424 ms QTC Calculation(Bazett) : 437 ms Calculated R Sumter : 56 degrees Calculated T Sumter : 20 degrees ATRIAL FIBRILLATION ABNORMAL ECG NO PREVIOUS ECGS AVAILABLE Confirmed by SAKINA MELLO MD ([id number]) on 12/07/2024 10:44:28 PM NAME : MEL GUADARRAMA PID : [id number] : 1940 Gender : Female Race : ORD : [id number] Procedure Date : Jun 10 2024 23:35:14 Edit Date : Dec 07 2024 22:44:32 Diagnosis: ATRIAL FIBRILLATION ABNORMAL ECG NO PREVIOUS ECGS AVAILABLE Confirmed by SAKINA MELLO MD ([id number]) on 12/07/2024 10:44:28 PM Test Reason : Chest Pain Location : 4 : [facility] EM Overread By : SAKINA MELLO MD Edited By : SAKINA MELLO MD Referred By : , Acquired by : REGAN RODRIGES [facility] ED NOTEon 06-10-2024 ED NOTE HNO ID: [id number] Author: DAMARIS HERNANDEZ RN Service: ? Author Type: Registered Nurse Type: ED Notes Filed: 06/10/2024 23:06 Note Text: Bed: 36-ED Expected date: Expected time: Means of arrival: Comments: RAMESH Barrett [facility] ED PROV NOTEon 06-10-2024 ED PROV NOTE HNO ID: [id number] Author: THOMAS SERNA MD Service: [facility] HNO ID: [id number] Author: THOMAS SERNA MD Service: Emergency Medicine [...] Comment: Rhina mason Type: BLOOD SPECIMENOrdering Facility: [facility] Address: [address] [place] [address] Performed By: #### L [id number] ####[facility] LABORATORYCLIA [id number] [place] [address] [place] HbA1c (Bld)on 06-10-2024 Average glucose Estimated from glycated hemoglobin (Bld) [Mass/Vol] 120 mg/dL Normal [facility] Comment on above: Order Comment: Rhina mason Type: BLOOD SPECIMEN Ordering Facility: [facility] Address: [address] [id number] Result Comment: eAG: (Estimated average glucose) is a calculated value from HgbA1c and is community health program representative of the average blood glucose level in the last 2-3 month period. Performed By: #### 2 4321-2, 97763-3, #### [facility] CLIA [id number] [address] [place] HbA1c (Bld) [Mass fraction] 5.8 % High 4.3-5.6 [facility] Comment on above: Order Comment: Rhina mason Type: BLOOD SPECIMEN Ordering Facility: [facility] Address: [address] [place] [address] Result Comment: [facility] Diabetes Association guidelines indicate that patients with HgbA1c in the range 5.7-6.4% are at increased risk for development of diabetes, and intervention by lifestyle modification may be beneficial. HgbA1c greater or equal to 6.5% is considered diagnostic of diabetes. Performed By: #### 2 4321-2, 22258-7, #### [facility] CLIA [id number] [address] [place] Lipid 1996 panelon 4 Cholesterol [Mass/Vol] 227 mg/dL High <200 [facility] Comment on above: Order Comment: Rhina mason Type: BLOOD SPECIMENOrdering Facility: [facility] Address: [address] [place] [address] Result Comment: <200 mg/dL, Desirable 200-239 mg/dL, Borderline high >239 mg/dL, High Performed By: #### 3 016-3, 47180-5, 3024-7, 64294-7 ####[facility]ORYCLIA [id number] [address] [place] Cholesterol in HDL [Mass/Vol] 78 mg/dL Normal >39 [facility] Comment on above: Order Comment: Rhina mason Type: BLOOD SPECIMENOrdering Facility: [facility] Address: [address] [place] [address] Result Comment: 40-5 9 mg/dL, Acceptable >59 mg/dL, High: Negative risk factor for coronary heart disease <40 mg/dL, Low: Positive risk factor for coronary heart disease Performed By: #### 3 016-3, 51227-8, 3024-7, 67491-9 ####[facility]ORYCLIA [id number] [place] [address] [place] [facility] Cholesterol in LDL [Mass/Vol] 139 mg/dL High <100 [facility] Comment on above: Order Comment: Speci men Type: BLOOD SPECIMENOrdering Facility: [facility] Address: [address] [place] [address] Result Comment: <100 mg/dL, Optimal 100-129 mg/dL, Near optimal/above optimal 130-159 mg/dL, Borderline high 160-189 mg/dL, High >189 mg/dL, Very high Secondary prevention optimal LDL Cholesterol levels are recommended to be < 70 mg/dL Performed By: #### 3 016-3, 68099-7, 3023-7, 28558-1 ####[facility] [id number] [address] Cholesterol in LDL/Cholesterol in HDL [Mass ratio] 1.78 {ratio} Normal <2.54 [facility] Comment on above: Order Comment: Speci men Type: BLOOD SPECIMENOrdering Facility: [facility] Address: [address] [place] [address] Result Comment: Refe rence: 1. National Cholesterol Education Program ATP III Guideline At-A-Glance Quick Desk Reference: National Heart, Lung, and Blood Snover. National Institutes of Health. 2001: NIH Publication No. 01-3305. 2. An International Atherosclerosis Society position paper: global recommendations for the management of dyslipidemia: executive summary, Atherosclerosis. 2014: 232(2):410-413. Performed By: #### 3 016-3, 53754-3, 302-7, 48901-0 ####[facility]ORYCLIA [id number] [place] [id number] [facility] Cholesterol in VLDL [Mass/Vol] 10 mg/dL Normal <30 [facility] Comment on above: Order Comment: Speci men Type: BLOOD SPECIMENOrdering Facility: [facility] Address: [address] [place] [address] Performed By: #### 3 016-3, 42491-1, 7, 75278-0 ####[facility]ORYCLIA [id number] [address] [place] Cholesterol non HDL [Mass/Vol] 149 mg/dL High <130 [facility] Comment on above: Order Comment: Speci men Type: BLOOD SPECIMENOrdering Facility: [facility] Address: [address] [place] [address] Result Comment: <130 mg/dL, Optimal 130-159 mg/dL, Near optimal/above optimal 160-189 mg/dL, Borderline high 190-219 mg/dL, High >219 mg/dL, Very high Secondary prevention optimal non HDL Cholesterol levels are recommended to be <100 mg/dL Performed By: #### 3 016-3, 34903-0, 7, 38896-3 ####[facility]ORYCLIA [id number] [address] Cholesterol.total/Pastora sterol in HDL [Mass ratio] 2.91 {ratio} Normal <5.10 [facility] Comment on above: Order Comment: Speci men Type: BLOOD SPECIMENOrdering Facility: [facility] Address: [address] [place] [address] Performed By: #### 3 016-3, 71281-8, 3024-01, 83654-3 ####[facility]ORYCLIA [id number] [address] [place] FASTING TIME Normal [facility] Comment on above: Order Comment: Speci men Type: BLOOD SPECIMENOrdering Facility: [facility] Address: [address] [place] [address] Result Comment: Unkn own Performed By: #### 3 016-3, 30866-6, 3024-01, 78709-3 ####[facility]ORYCLIA [id number] [address] [place] Triglyceride [Mass/Vol] 49 mg/dL Normal <150 [facility] Comment on above: Order Comment: Speci men Type: BLOOD SPECIMENOrdering Facility: [facility] Address: [address] [place] [address] Result Comment: <150 mg/dL, Normal 150-199 mg/dL, Borderline high 200-499 mg/dL, High >499 mg/dL, Very high Performed By: #### 3 016-3, 40823-5, 3024-7, 59282-4 ####[facility]ORYCLIA [id number] [place] [address] [place] [facility] PT panel Coag (PPP)on 2023 INR Coag (PPP) [Relative time] 1.3 {INR} Normal 0.9-1.3 [facility] Comment on above: Order Comment: Rhina mason Type: BLOOD SPECIMENOrdering Facility: [facility] Address: [address] [place] [address] Result Comment: Mayra min K Antagonist (VKA) Therapeutic Range: INR 2 to 3 (Target INR of 2.5) Note: For patients treated with VKA drugs, such as warfarin, the [place] [employer] 2012 Guideline recommends [...] Chest 2012, 141:7S-47S Daren RA, et al. [facility] 2017, 70: 252-289 Performed By: #### 3 4528-0 ####[facility]ORYCLIA [id number] [place] [id number] [place] PT Coag (PPP) [Time] 13.2 s High 9.7-13.0 [facility] Comment on above: Order Comment: Rhina mason Type: BLOOD SPECIMENOrdering Facility: [facility] Address: [address] [place] [address] Performed By: #### 3 4528-0 ####[facility]ATORYCLIA [id number] [place] [address] [facility] T4 Free SerPl-mCncon 024 Free T4 [Mass/Vol] 1.3 ng/dL Normal 0.9-1.7 [facility] Comment on above: Order Comment: Speci men Type: BLOOD SPECIMENOrdering Facility: [facility] Address: [address] [place] [address] Performed By: #### 3 016-3, 75055-3, 3024-7, 85262-6 ####[facility]ATORYCLIA [id number] [address] [facility] TSH SerPl-aCncon 06-10-2024 TSH Qn 1.620 m[IU]/L Normal 0.270-4.200 [facility] Comment on above: Order Comment: Speci men Type: BLOOD SPECIMENOrdering Facility: [facility] Address: [address] [place] [address] Performed By: #### 3 016-3, 11261-5, 3024-7, 93006-8 ####[facility]ORYCLIA [id number] [address] 36on 06-04-2024 [address] [facility] 36on 06-01-2024 [address] [facility] Progress Noteon 05-22-2024 Progress Note Normal [facility] PT Coag (Bld) [Time]on 05-21 INR Coag (PPP) [Relative time] 2.8 {INR} Abnormal 0.9 - 1.1 [facility] Interpretation and review of laboratory results Abnormal [facility] Progress Noteon 05-21-2024 Progress Note Normal [facility] Progress Note INR reported on b y Christin with [facility]. Christin can be reached at [phone] with questions. Normal [facility] Protime-INRon 05-21-2024 PT Coag (Bld) [Time] 33.9 s Abnormal 9.0 - 12.0 [facility] Heart TransthoracicOrdere d By: Davian Landrum on 05-14-2024 Ao Root Index 1.63 cm/m2 [facility] Work Phone: Aortic Arch 2.6 cm [facility] Work Phone: Aortic Root 2.8 cm [facility] Work Phone: Aortic Sinus Valsalva 2.8 cm [facility] Work Phone: Aortic Sinus Valsalva Index 1.63 cm/m2 [facility] Work Phone: Ascending Aorta 2.7 cm [facility] Work Phone: Ascending Aorta Index 1.57 cm/m2 [facility] Work Phone: AV Area by Peak Velocity 1.4 cm2 [facility] Work Phone: AV Area by VTI 1.4 cm2 [facility] Work Phone: AV Mean Gradient 3 mmHg [facility] Work Phone: AV Mean Velocity 0.9 m/s [facility] Work Phone: AV Peak Gradient 7 mmHg [facility] Work Phone: AV Peak Velocity 1.3 m/s [facility] Work Phone: AV Velocity Ratio 0.62 [facility] Work Phone: AV VTI 30 cm [facility] Work Phone: POLA/BSA Peak Velocity 0.8 cm2/m2 [facility] Work Phone: POLA/BSA VTI 0.8 cm2/m2 [facility] Work Phone: E/E' Lateral 14 [facility] Work Phone: E/E' Ratio (Averaged) 18 [facility] Work Phone: E/E' Septal 22 [facility] Work Phone: EF BP 61 % 55 - 100 % [facility] Work Phone: Est. RA Pressure 3 mmHg [facility] Work Phone: [phone] Fractional Shortening 2D 30 % 28 - 44 % [facility] Work Phone: [phone] Global Longitudinal Strain -15.3 % [facility] Work Phone: Interpretation and review of laboratory results Abnormal [facility] Work Phone: [phone] IVC Diameter 1.8 cm [facility] Work Phone: [phone] IVSd 1 cm Abnormal 0.6 - 0.9 cm [facility] Work Phone: [phone] LA Diameter 4.1 cm [facility] Work Phone: [phone] LA Size Index 2.38 cm/m2 [facility] Work Phone: [phone] LA Volume 2C 63 mL Abnormal 22 - 52 mL [facility] Work Phone: [phone] LA Volume 4C 80 mL Abnormal 22 - 52 mL [facility] Work Phone: [phone] LA Volume A/L 76 mL [facility] Work Phone: [phone] LA Volume BP 72 mL Abnormal 22 - 52 mL [facility] Work Phone: [phone] LA Volume Index 2C 37 mL/m2 Abnormal 16 - 34 mL/m2 [facility] Work Phone: [phone] LA Volume Index 4C 47 mL/m2 Abnormal 16 - 34 mL/m2 [facility] Work Phone: [phone] LA Volume Index A/L 44 mL/m2 16 - 34 mL/m2 [facility] Work Phone: [phone] LA Volume Index BP 42 ml/m2 Abnormal 16 - 34 ml/m2 [facility] Work Phone: [phone] LA/AO Root Ratio 1.46 [facility] Work Phone: LV E' Lateral Velocity 11 cm/s [facility] Work Phone: LV E' Septal Velocity 7 cm/s [facility] Work Phone: LV EDV A2C 45 mL [facility] Work Phone: LV EDV A4C 48 mL [facility] Work Phone: LV EDV BP 47 mL Abnormal 56 - 104 mL [facility] Work Phone: [phone] LV EDV Index A2C 26 mL/m2 [facility] Work Phone: LV EDV Index A4C 28 mL/m2 [facility] Work Phone: LV EDV Index BP 27 mL/m2 [facility] Work Phone: LV Ejection Fraction A2C 68 % [facility] Work Phone: [phone] LV Ejection Fraction A4C 55 % [facility] Work Phone: LV ESV A2C 14 mL [facility] Work Phone: LV ESV A4C 21 mL [facility] Work Phone: LV ESV BP 18 mL Abnormal 19 - 49 mL [facility] Work Phone: LV ESV Index A2C 8 mL/m2 [facility] Work Phone: LV ESV Index A4C 12 mL/m2 [facility] Work Phone: LV ESV Index BP 10 mL/m2 [facility] Work Phone: LV Mass 2D 142.5 g 67 - 162 g [facility] Work Phone: LV Mass 2D Index 82.8 g/m2 43 - 95 g/m2 [facility] Work Phone: LV RWT Ratio 0.47 [facility] Work Phone: LVIDd 4.3 cm 3.9 - 5.3 cm [facility] Work Phone: LVIDd Index 2.5 cm/m2 [facility] Work Phone: LVIDs 3 cm [facility] Work Phone: LVIDs Index 1.74 cm/m2 [facility] Work Phone: LVOT Area 2.5 cm2 [facility] Work Phone: LVOT Cardiac Output 3.2 liter/mi nut e [facility] Work Phone: LVOT Diameter 1.8 cm [facility] Work Phone: LVOT Mean Gradient 1 mmHg [facility] Work Phone: LVOT Peak Gradient 2 mmHg [facility] Work Phone: LVOT Peak Velocity 0.8 m/s [facility] Work Phone: LVOT Stroke Volume Index 25.1 mL/m2 [facility] Work Phone: LVOT SV 43.2 ml [facility] Work Phone: LVOT VTI 17 cm [facility] Work Phone: LVOT:AV VTI Index 0.57 [facility] Work Phone: LVPWd 1 cm Abnormal 0.6 - 0.9 cm [facility] Work Phone: MV A Velocity 0.41 m/s [facility] Work Phone: MV Area by PHT 3.3 cm2 [facility] Work Phone: MV Area by VTI 1.2 cm2 [facility] Work Phone: MV E Velocity 1.54 m/s [facility] Work Phone: MV E Wave Deceleration Time 180.9 ms [facility] Work Phone: MV E/A 3.76 [facility] Work Phone: MV Max Velocity 1.7 m/s [facility] Work Phone: MV Mean Gradient 4 mmHg [facility] Work Phone: MV Mean Velocity 0.9 m/s [facility] Work Phone: MV Peak Gradient 11 mmHg [facility] Work Phone: MV PHT 66.9 ms [facility] Work Phone: MV VTI 35.1 cm [facility] Work Phone: MV:LVOT VTI Index 2.06 [facility] Work Phone: [phone] RA Area 4C 55.1 mL [facility] Work Phone: [phone] RV Basal Dimension 2.7 cm [facility] Work Phone: [phone] RV Free Wall Peak S' 11 cm/s [facility] Work Phone: [phone] RV Longitudinal Dimension 4.9 cm [facility] Work Phone: [phone] RV Mid Dimension 2.1 cm [facility] Work Phone: [phone] RVSP 54 mmHg [facility] Work Phone: [phone] Sinotubular Junction 2.7 cm [facility] Work Phone: [phone] TAPSE 1.5 cm Abnormal 1.7 cm [facility] Work Phone: [phone] TR Max Velocity 3.56 m/s [facility] Work Phone: [phone] TR Peak Gradient 51 mmHg [facility] Work Phone: [phone] TR Peak Velocity PISA 3.6 m/s [facility] Work Phone: TR VTI 120.8 cm [facility] Work Phone: [phone] TV EROA 0.2 cm2 [facility] Work Phone: TV Nyquist Velocity 39 cm/s [facility] Work Phone: [phone] [facility] Work Phone: [phone] Heart [...] time] 2.7 {INR} Abnormal 0.9 - 1.1 [facility] Interpretation and review of laboratory results Abnormal [facility] Progress Noteon 05-09-2024 Progress Note Graciela from [facility] call ed in results. Normal [facility] Progress Note Normal [facility] Protime-INRon 05-09-2024 PT Coag (Bld) [Time] 32.1 s Abnormal 9.0 - 12.0 [facility] PT Coag (Bld) [Time]on 05-01 INR Coag (PPP) [Relative time] 2.7 {INR} Abnormal 0.9 - 1.1 [facility] Interpretation and review of laboratory results Abnormal [facility] Progress Noteon 05-01-2024 Progress Note Normal [facility] Progress Note Tia- [facility]- [phone] [facility] Protime-INRon 05-01-2024 PT Coag (Bld) [Time] 32.4 s Abnormal 9.0 - 12.0 [facility] 36on 04-27-2024 36 Pt requested refill on warfarin 5mg. Sent to [facility]. Receipt confirmed by pharmacy. Normal [facility] Progress Noteon 04-27-2024 Progress Note Normal [facility] Progress Note Tia- [facility]- [phone] [facility] Progress Noteon 04-25-2024 Progress Note Normal [facility] Progress Noteon 04-23-2024 Progress Note Normal [facility] Progress Note Christin [facility] called any questions or concerns [phone]. Normal [facility] PT Coag (Bld) [Time]on 04-19 INR Coag (PPP) [Relative time] 2.1 {INR} Abnormal 0.9 - 1.1 [facility] Interpretation and review of laboratory results Abnormal [facility] Progress Noteon 04-19-2024 Progress Note Normal [facility] Progress Note Graciela with [facility] repo rts INR on Graciela can be reached at [phone] with any questions. Normal [facility] Protime-INRon 04-19-2024 PT Coag (Bld) [Time] 24.9 s Abnormal 9.0 - 12.0 [facility] Progress Noteon 04-16-2024 Progress Note Christin- [facility]- [phone] [facility] Progress Note Normal [facility] Progress Noteon 04-14-2024 Progress Note Placed new order for POCT INR, [facility] had not received. Normal [facility] [id number] 04-13-2024 [id number] Normal [facility] APTTon 04-13-2024 aPTT Coag (Bld) [Time] 132.2 s Critically high 20.0-30. [address] [facility] Comment on above: Result Comment: ORDE R COMMENTS:NOTE: The therapeutic time for Heparin anticoagulation, based on Xa activity inhibition, is an APTT of 46-80 seconds. Performed By: #### L AB320, RBT030 ####Flavor Room Worker: VELMA VALADEZ ([id number])[facility])[address] [place] [address] BASIC METABOLIC PANELon 09-2 Anion gap [Moles/Vol] 2 mmol/L Low 3-13 [facility] Comment on above: Performed By: #### L AB15 ####Flavor Room Worker: VELMA VALADEZ ([id number])[facility] ([facility])[address] [place] [address] Calcium [Mass/Vol] 9.0 mg/dL Normal 8.4-10.[address] [facility] Comment on above: Performed By: #### L AB15 ####Flavor Room Worker: VELMA VALADEZ ([id number])[facility] ([facility])[address] [place] [address] Chloride [Moles/Vol] 108 mmol/L High 98-107 [facility] Comment on above: Performed By: #### L AB15 ####Flavor Room Worker: VELMA VALADEZ ([id number])[facility] ([facility])[address] [place] [address] CO2 [Moles/Vol] 25 mmol/L Normal 22-30 [facility] Comment on above: Performed By: #### L AB15 ####Flavor Room Worker: VELMA VALADEZ ([id number])[facility])[address] [place] [address] Creatinine [Mass/Vol] 1.00 mg/dL Normal 0.52-1.04 [facility] Comment on above: Performed By: #### L AB15 ####Flavor Room Worker: VELMA VALADEZ ([id number])[facility])[address] [place] [address] GLOMERULAR FILTRATION RATE ML/MIN/1.73 SQ M.PREDICTED 55.7 mL/min/1.73m*2 Low >60.[address] [facility] Comment on above: Result Comment: Calc ulation based on the Chronic Kidney Disease Epidemiology Collaboration (CKD-EPI) equation refit without adjustment for race Performed By: #### L AB15 ####Flavor Room Worker: VELMA VALADEZ ([id number])[facility])[address] [place] [address] Glucose [Mass/Vol] 98 mg/dL Normal 70-[address] [facility] Comment on above: Performed By: #### L AB15 ####Flavor Room Worker: VELMA VALADEZ ([id number])[facility])[address] [place] [address] Potassium [Moles/Vol] 4.3 mmol/L Normal 3.5-5.1 [facility] Comment on above: Performed By: #### L AB15 ####Flavor Room Worker: VELMA VALADEZ ([id number])[facility] ([facility])[address] [place] [address] Sodium [Moles/Vol] 135 mmol/L Normal 135-[address] [facility] Comment on above: Performed By: #### L AB15 ####Flavor Room Worker: VELMA VALADEZ ([id number])[facility] ([facility])[address] [place] [address] Urea nitrogen [Mass/Vol] 18 mg/dL High 7-[address] [facility] Comment on above: Performed By: #### L AB15 ####Flavor Room Worker: VELMA VALADEZ ([id number])[facility])[address] [place] [address] Basic metabolic 1998 panelon 04-13-2024 Anion gap [Moles/Vol] 2 mmol/L Low 3 - 13 mmol/L [facility] Calcium [Mass/Vol] 9.0 mg/dL 8.4 - 10. 4 mg/dL [facility] Chloride [Moles/Vol] 108 mmol/L High 98 - 10 7 mmol/L [facility] CO2 [Moles/Vol] 25 mmol/L 22 - 30 mmol/L [facility] Creatinine [Mass/Vol] 1.00 mg/dL 0.52 - 1.04 mg/dL [facility] GFR/1.73 sq M.predicted (S/P/Bld) [Vol rate/Area] 55.7 mL/min Low - PINF [facility] Comment on above: Calculation based on the Chronic Kidney Disease Epidemiology Collaboration (CKD-EPI) equation refit without adjustment for race Glucose [Mass/Vol] 98 mg/dL 70 - 100 mg/dL [facility] Interpretation and review of laboratory results Abnormal [facility] Potassium [Moles/Vol] 4.3 mmol/L 3.5 - 5.1 mmol/L [facility] Sodium [Moles/Vol] 135 mmol/L 135 - 145 mmol/L [facility] Urea nitrogen [Mass/Vol] 18 mg/dL High 7 - 17 mg/dL [facility] CARECOORDon 04-13-[address] [facility] Normal [facility] Normal [facility] CBC W Auto Differential pane l (Bld)on 04-13-2024 Basophils (Bld) [#/Vol] 0.0 10*3/uL 0.0 - 0.2 10*3/uL [facility] Basophils/100 WBC (Bld) 0.7 % 0.0 - 2.0 % [facility] Eosinophils (Bld) [#/Vol] 0.1 10*3/uL 0.0 - 0.5 10*3/uL [facility] Eosinophils/100 WBC (Bld) 2.6 % 0.0 - 6.0 % [facility] Erythrocyte distribution width (RBC) [Ratio] 14.5 % 11.5 - 15.0 % [facility] Hematocrit (Bld) [Volume fraction] 26.3 % Low 35.0 - 47.0 % [facility] Hemoglobin (Bld) [Mass/Vol] 8.6 g/dL Low 11.7 - 16.0 g/dL [facility] Immature granulocytes (Bld) [#/Vol] 0.0 10*3/uL NINF - 0.1 10*3/uL [facility] Immature granulocytes/100 WBC (Bld) 0.2 % 0.0 - 2.0 % [facility] Interpretation and review of laboratory results Abnormal [facility] Lymphocytes (Bld) [#/Vol] 1.4 10*3/uL 1.0 - 4.3 10*3/uL [facility] Lymphocytes/100 WBC (Bld) 33.5 % 15.0 - 45.0 % [facility] MCH (RBC) [Entitic mass] 29.8 pg 26.0 - 34.0 pg [facility] MCHC (RBC) [Mass/Vol] 32.7 % 30.5 - 36.0 % [facility] MCV (RBC) [Entitic vol] 91.0 fL 77.0 - 99.0 fL [facility] Monocytes (Bld) [#/Vol] 0.5 10*3/uL 0.0 - 0.9 10*3/uL [facility] [facility]100 WBC (Bld) 11.3 % 5.0 - 13.0 % [facility] Neutrophils (Bld) [#/Vol] 2.2 10*3/uL 1.8 - 7.5 10*3/uL [facility] Neutrophils/100 WBC (Bld) 51.7 % 38.0 - 82.0 % [facility] Nucleated RBC/100 WBC (Bld) [Ratio] 0.0 % [facility] Platelet mean volume (Bld) [Entitic vol] 9.4 fL 9.0 - 12.7 fL [facility] Platelets (Bld) [#/Vol] 317 10*3/uL 140 - 440 10*3/uL [facility] RBC (Bld) [#/Vol] 2.89 10*6/uL Low 3.80 - 5.2 0 10*6/uL [facility] WBC (Bld) [#/Vol] 4.2 10*3/uL 3.6 - 10.7 10*3/uL [facility] CBC WITH AUTO DIFFERENTIALon 04-13-2024 Basophils (Bld) [#/Vol] 0.0 10*3/uL Normal 0.0-0.[address] [facility] Comment on above: Performed By: #### L [id number] ####Flavor Room Worker: VELMA VALADEZ ([id number])[facility] ([facility])[address] [place] [address] Basophils/100 WBC (Bld) 0.7 % Normal 0.0-2.0 [facility] Comment on above: Performed By: #### L [id number] ####Flavor Room Worker: VELMA VALADEZ ([id number])[facility] ([facility])[address] [place] [address] Eosinophils (Bld) [#/Vol] 0.1 10*3/uL Normal 0.0-0.5 [facility] Comment on above: Performed By: #### L [id number] ####Flavor Room Worker: VELMA VALADEZ ([id number])[facility])[address] [place] [address] Eosinophils/100 WBC (Bld) 2.6 % Normal 0.0-6.0 [facility] Comment on above: Performed By: #### L [id number] ####Flavor Room Worker: VELMA VALADEZ ([id number])[facility])[address] [place] [address] Erythrocyte distribution width (RBC) [Ratio] 14.5 % Normal 11.5-15.0 [facility] Comment on above: Performed By: #### L [id number] ####Flavor Room Worker: VELMA VALADEZ ([id number])[facility])[address] [place] [address] Hematocrit (Bld) [Volume fraction] 26.3 % Low 35.0-47.0 [facility] Comment on above: Performed By: #### L [id number] ####Flavor Room Worker: VELMA VALADEZ ([id number])[address] Hemoglobin (Bld) [Mass/Vol] 8.6 g/dL Low 11.7-16.0 [facility] Comment on above: Performed By: #### L [id number] ####Flavor Room Worker: VELMA VALADEZ ([id number])[facility])[address] [place] [address] IMMATURE GRANS % 0.2 % Normal 0.0-2.0 [facility] Comment on above: Performed By: #### L [id number] ####Flavor Room Worker: VELMA VALADEZ ([id number])[facility])[address] [place] [address] IMMATURE GRANS ABSOLUTE 0.0 10*3/uL Normal <0.1 [facility] Comment on above: Performed By: #### L [id number] ####Flavor Room Worker: VELMA VALADEZ ([id number])[facility])[address] [place] [address] Lymphocytes (Bld) [#/Vol] 1.4 10*3/uL Normal 1.0-4.3 [facility] Comment on above: Performed By: #### L [id number] ####Flavor Room Worker: VELMA VALADEZ ([id number])[facility])[address] [place] [address] Lymphocytes/100 WBC (Bld) 33.5 % Normal 15.0-45.0 [facility] Comment on above: Performed By: #### L [id number] ####Flavor Room Worker: VELMA VALADEZ ([id number])[facility])[address] [place] [address] MCH (RBC) [Entitic mass] 29.8 pg Normal 26.0-34.0 [facility] Comment on above: Performed By: #### L [id number] ####Flavor Room Worker: VELMA VALADEZ ([id number])[facility])[address] [place] [address] MCHC 32.7 % Normal 30.5-36.0 [facility] Comment on above: Performed By: #### L [id number] ####Flavor Room Worker: VELMA VALADEZ ([id number])[facility])[address] [place] [address] MCV (RBC) [Entitic vol] 91.0 fL Normal 77.0-99.0 [facility] Comment on above: Performed By: #### L [id number] ####Flavor Room Worker: VELMA VALADEZ ([id number])[facility])[address] [place] [address] Monocytes (Bld) [#/Vol] 0.5 10*3/uL Normal 0.0-0.9 [facility] Comment on above: Performed By: #### L [id number] ####Flavor Room Worker: VELMA VALADEZ ([id number])[facility] [place] [address] Monocytes/100 WBC (Bld) 11.3 % Normal 5.0-13.0 [facility] Comment on above: Performed By: #### L [id number] ####Flavor Room Worker: VELMA VALADEZ ([id number])[facility] ([facility])[address] [place] [address] NEUTROPHILS ABSOLUTE 2.2 10*3/uL Normal 1.8-7.5 [facility] Comment on above: Performed By: #### L [id number] ####Flavor Room Worker: VELMA VALADEZ ([id number])[facility] ([facility])[address] [place] [address] Neutrophils/100 WBC (Bld) 51.7 % Normal 38.0-82.[address] [facility] Comment on above: Performed By: #### L [id number] ####Flavor Room Worker: VELMA VALADEZ ([id number])[facility] ([facility])[address] [place] [address] NRBC 0.0 /100 WBCs Normal 0.0-2.0 [facility] Comment on above: Performed By: #### L [id number] ####Flavor Room Worker: VELMA VALADEZ ([id number])[facility] ([facility])[address] [place] [address] Platelet mean volume (Bld) [Entitic vol] 9.4 fL Normal 9.0-12.7 [facility] Comment on above: Performed By: #### L [id number] ####Flavor Room Worker: VELMA VALADEZ ([id number])[facility] ([facility])[address] [place] [address] [place] Platelets (Bld) [#/Vol] 317 10*3/uL Normal 140-440 [facility] Comment on above: Performed By: #### L [id number] ####Flavor Room Worker: VELMA VALADEZ ([id number])[facility] ([facility])[address] [place] [address] [place] RBC (Bld) [#/Vol] 2.89 10*6/uL Low 3.80-5.[address] [facility] Comment on above: Performed By: #### L [id number] ####Flavor Room Worker: VELMA VALADEZ ([id number])[facility])[address] [place] [address] WBC (Bld) [#/Vol] 4.2 10*3/uL Normal 3.6-10.[address] [facility] Comment on above: Performed By: #### L [id number] ####Flavor Room Worker: VELMA VALADEZ ([id number])[facility])[address] [place] [address] IDNon 04-13-2024 IDN Normal [facility] Laboratory - Coagulationon 0 04-13-2024 PT Coag (Bld) [Time] 24.2 s High 9.0 - 1 2.0 s [facility] Nursing Noteon 04-13-2024 Nursing Note AVS explained. Discharged patient on stable condition. Normal [facility] Nursing Note Instructed patient o n warfarin dosing, she will take 7.5mg tomorrow, and 5mg Tuesday, and then we will check INR with home care on Tuesday as instructed. Normal [facility] PROTHROMBIN TIMEon INR Coag (PPP) [Relative time] 2.3 {INR} High 0.9-1.[address] [facility] Comment on above: Result Comment: Timothy [...] Myocardial Infarction Performed By: #### L [id number], [id number] ####Flavor Room Worker: VELMA VALADEZ ([id number])[facility] ([facility])[address] [place] [address] PT Coag (PPP) [Time] 24.2 s High 9.0-12.0 [facility] Comment on above: Performed By: #### L [id number], [id number] ####Flavor Room Worker: VELMA VALADEZ ([id number])[facility] ([facility])[address] [place] [address] PT Coag (Bld) [Time]on 04-13 INR Coag (PPP) [Relative time] 2.3 {INR} High 0.9 - 1.1 [facility] Comment on above: Recommended Anticoag ulant [...] Interpretation and review of laboratory results Abnormal [facility] Progress Noteon 04-13-2024 Progress Note Normal [facility] Progress Note Normal [facility] Progress Note Normal [facility] aPTT Coag (Bld) [Time]Ordere d By: Melany Tejeda on 04-13-2024 aPTT Coag (PPP) [Time] 132.2 s Critically high 20 .0 - 30.5 s [facility] Interpretation and review of laboratory results Abnormal [facility] NOTE: The therapeuti c time for Heparin anticoagulation, based on Xa activity inhibition, is an APTT of 46-80 seconds. [facility] BASIC METABOLIC PANELon 03-19 Anion gap [Moles/Vol] 3 mmol/L Normal 3-13 [facility] Comment on above: Performed By: #### L [id number] ####Flavor Room Worker: VELMA VALADEZ ([id number])[facility] ([facility])[address] [place] [address] Calcium [Mass/Vol] 9.3 mg/dL Normal 8.4-10.[address] [facility] Comment on above: Performed By: #### L [id number] ####Flavor Room Worker: VELMA VALADEZ ([id number])[facility] ([facility])[address] [place] [address] Chloride [Moles/Vol] 108 mmol/L High 98-107 [facility] Comment on above: Performed By: #### L AB15 ####Flavor Room Worker: VELMA VALADEZ ([id number])[facility] ([facility])[address] [place] [address] CO2 [Moles/Vol] 24 mmol/L Normal 22-30 [facility] Comment on above: Performed By: #### L AB15 ####Flavor Room Worker: VELMA VALADEZ ([id number])[facility])[address] [place] [address] Creatinine [Mass/Vol] 0.99 mg/dL Normal 0.52-1.04 [facility] Comment on above: Performed By: #### L AB15 ####Flavor Room Worker: VELMA VALADEZ ([id number])[facility] ([facility])[address] [place] [address] GLOMERULAR FILTRATION RATE ML/MIN/1.73 SQ M.PREDICTED 56.3 mL/min/1.73m*2 Low >60.[address] [facility] Comment on above: Result Comment: Calc ulation based on the Chronic Kidney Disease Epidemiology Collaboration (CKD-EPI) equation refit without adjustment for race Performed By: #### L AB15 ####Flavor Room Worker: VELMA VALADEZ ([id number])[facility] ([facility])[address] [place] [address] Glucose [Mass/Vol] 101 mg/dL High 70-[address] [facility] Comment on above: Performed By: #### L AB15 ####Flavor Room Worker: VELMA VALADEZ ([id number])[facility])[address] [place] [address] Potassium [Moles/Vol] 3.9 mmol/L Normal 3.5-5.1 [facility] Comment on above: Performed By: #### L AB15 ####Flavor Room Worker: VELMA [id number])[facility] ([facility])[address] [place] [address] Sodium [Moles/Vol] 135 mmol/L Normal 135-[address] [facility] Comment on above: Performed By: #### L AB15 ####Flavor Room Worker: VELMA VALADEZ ([id number])[facility] ([facility])[address] [place] [address] Urea nitrogen [Mass/Vol] 16 mg/dL Normal 7-[address] [facility] Comment on above: Performed By: #### L AB15 ####Flavor Room Worker: VELMA VALADEZ ([id number])[facility] ([facility])[address] [place] [address] Basic metabolic 1998 panelon 04-12-2024 Anion gap [Moles/Vol] 3 mmol/L 3 - 13 mmol/L [facility] Calcium [Mass/Vol] 9.3 mg/dL 8.4 - 10. 4 mg/dL [facility] Chloride [Moles/Vol] 108 mmol/L High 98 - 10 7 mmol/L [facility] CO2 [Moles/Vol] 24 mmol/L 22 - 30 mmol/L [facility] Creatinine [Mass/Vol] 0.99 mg/dL 0.52 - 1.04 mg/dL [facility] GFR/1.73 sq M.predicted (S/P/Bld) [Vol rate/Area] 56.3 mL/min Low - PINF [facility] Comment on above: Calculation based on the Chronic Kidney Disease Epidemiology Collaboration (CKD-EPI) equation refit without adjustment for race Glucose [Mass/Vol] 101 mg/dL High 70 - 100 mg/dL [facility] Interpretation and review of laboratory results Abnormal [facility] Potassium [Moles/Vol] 3.9 mmol/L 3.5 - 5.1 mmol/L [facility] Sodium [Moles/Vol] 135 mmol/L 135 - 145 mmol/L [facility] Urea nitrogen [Mass/Vol] 16 mg/dL 7 - 17 mg/dL [facility] CARECOORDon 04-12-2024 CARECOORD Normal [facility] CBC W Auto Differential pane l (Bld)on 04-12-2024 Basophils (Bld) [#/Vol] 0.0 10*3/uL 0.0 - 0.2 10*3/uL [facility] Basophils/100 WBC (Bld) 0.5 % 0.0 - 2.0 % [facility] Eosinophils (Bld) [#/Vol] 0.1 10*3/uL 0.0 - 0.5 10*3/uL [facility] Eosinophils/100 WBC (Bld) 2.4 % 0.0 - 6.0 % [facility] Erythrocyte distribution width (RBC) [Ratio] 14.8 % 11.5 - 15.0 % [facility] Hematocrit (Bld) [Volume fraction] 28.3 % Low 35.0 - 47.0 % [facility] Hemoglobin (Bld) [Mass/Vol] 9.3 g/dL Low 11.7 - 16.0 g/dL [facility] Immature granulocytes (Bld) [#/Vol] 0.0 10*3/uL NINF - 0.1 10*3/uL [facility] Immature granulocytes/100 WBC (Bld) 0.2 % 0.0 - 2.0 % [facility] Interpretation and review of laboratory results Abnormal [facility] Lymphocytes (Bld) [#/Vol] 1.4 10*3/uL 1.0 - 4.3 10*3/uL [facility] Lymphocytes/100 WBC (Bld) 33.0 % 15.0 - 45.0 % [facility] MCH (RBC) [Entitic mass] 30.4 pg 26.0 - 34.0 pg [facility] MCHC (RBC) [Mass/Vol] 32.9 % 30.5 - 36.0 % [facility] MCV (RBC) [Entitic vol] 92.5 fL 77.0 - 99.0 fL [facility] Monocytes (Bld) [#/Vol] 0.5 10*3/uL 0.0 - 0.9 10*3/uL [facility] Monocytes/100 WBC (Bld) 11.9 % 5.0 - 13.0 % [facility] Neutrophils (Bld) [#/Vol] 2.1 10*3/uL 1.8 - 7.5 10*3/uL [facility] Neutrophils/100 WBC (Bld) 52.0 % 38.0 - 82.0 % [facility] Nucleated RBC/100 WBC (Bld) [Ratio] 0.0 % [facility] Platelet mean volume (Bld) [Entitic vol] 9.5 fL 9.0 - 12.7 fL [facility] Platelets (Bld) [#/Vol] 307 10*3/uL 140 - 440 10*3/uL [facility] RBC (Bld) [#/Vol] 3.06 10*6/uL Low 3.80 - 5.2 0 10*6/uL [facility] WBC (Bld) [#/Vol] 4.1 10*3/uL 3.6 - 10.7 10*3/uL [facility] CBC WITH AUTO DIFFERENTIALon 04-12-2024 Basophils (Bld) [#/Vol] 0.0 10*3/uL Normal 0.0-0.2 [facility] Comment on above: Performed By: #### L [id number] ####Flavor Room Worker: VELMA VALADEZ ([id number])[facility])[address] [place] [address] Basophils/100 WBC (Bld) 0.5 % Normal 0.0-2.0 [facility] Comment on above: Performed By: #### L [id number] ####Flavor Room Worker: VELMA VALADEZ ([id number])[facility])[address] [place] [address] Eosinophils (Bld) [#/Vol] 0.1 10*3/uL Normal 0.0-0.5 [facility] Comment on above: Performed By: #### L [id number] ####Flavor Room Worker: VELMA VALADEZ ([id number])[facility])[address] [place] [address] Eosinophils/100 WBC (Bld) 2.4 % Normal 0.0-6.0 [facility] Comment on above: Performed By: #### L [id number] ####Flavor Room Worker: VELMA VALADEZ ([id number])[facility])[address] [place] [address] Erythrocyte distribution width (RBC) [Ratio] 14.8 % Normal 11.5-15.0 [facility] Comment on above: Performed By: #### L [id number] ####Flavor Room Worker: VELMA VALADEZ ([id number])[facility] ([facility])[address] [place] [address] Hematocrit (Bld) [Volume fraction] 28.3 % Low 35.0-47.0 [facility] Comment on above: Performed By: #### L [id number] ####Flavor Room Worker: VELMA VALADEZ ([id number])[facility] ([facility])[address] [place] [address] Hemoglobin (Bld) [Mass/Vol] 9.3 g/dL Low 11.7-16.0 [facility] Comment on above: Performed By: #### L [id number] ####Flavor Room Worker: VELMA VALADEZ ([id number])[facility])[address] [place] [address] IMMATURE GRANS % 0.2 % Normal 0.0-2.0 [facility] Comment on above: Performed By: #### L [id number] ####Flavor Room Worker: VELMA VALADEZ ([id number])[facility] ([facility])[address] [place] [address] IMMATURE GRANS ABSOLUTE 0.0 10*3/uL Normal <0.1 [facility] Comment on above: Performed By: #### L [id number] ####Flavor Room Worker: VELMA VALADEZ ([id number])[facility])[address] [place] [address] Lymphocytes (Bld) [#/Vol] 1.4 10*3/uL Normal 1.0-4.3 [facility] Comment on above: Performed By: #### L [id number] ####Flavor Room Worker: VELMA VALADEZ ([id number])[facility])[address] [place] [address] Lymphocytes/100 WBC (Bld) 33.0 % Normal 15.0-45.0 [facility] Comment on above: Performed By: #### L [id number] ####Flavor Room Worker: VELMA VALADEZ ([id number])[facility])[address] [place] [address] MCH (RBC) [Entitic mass] 30.4 pg Normal 26.0-34.0 [facility] Comment on above: Performed By: #### L [id number] ####Flavor Room Worker: VELMA VALADEZ ([id number])[facility])[address] [place] [address] MCHC 32.9 % Normal 30.5-36.0 [facility] Comment on above: Performed By: #### L [id number] ####Flavor Room Worker: VELMA VALADEZ ([id number])[facility])[address] [place] [address] MCV (RBC) [Entitic vol] 92.5 fL Normal 77.0-99.0 [facility] Comment on above: Performed By: #### L [id number] ####Flavor Room Worker: VELMA VALADEZ ([id number])[facility] ([facility])[address] [place] [address] Monocytes (Bld) [#/Vol] 0.5 10*3/uL Normal 0.0-0.9 [facility] Comment on above: Performed By: #### L [id number] ####Flavor Room Worker: VELMA VALADEZ ([id number])[facility] ([facility])[address] [place] [address] Monocytes/100 WBC (Bld) 11.9 % Normal 5.0-13.0 [facility] Comment on above: Performed By: #### L [id number] ####Flavor Room Worker: VELMA VALADEZ ([id number])[facility] ([facility])[address] [place] [address] NEUTROPHILS ABSOLUTE 2.1 10*3/uL Normal 1.8-7.5 [facility] Comment on above: Performed By: #### L [id number] ####Flavor Room Worker: VELMA VALADEZ ([id number])[facility])[address] [place] [address] Neutrophils/100 WBC (Bld) 52.0 % Normal 38.0-82.[address] [facility] Comment on above: Performed By: #### L [id number] ####Flavor Room Worker: VELMA VALADEZ ([id number])[facility])[address] [place] [address] NRBC 0.0 /100 WBCs Normal 0.0-2.0 [facility] Comment on above: Performed By: #### L [id number] ####Flavor Room Worker: VELMA VALADEZ ([id number])[facility] ([facility])[address] [place] [address] Platelet mean volume (Bld) [Entitic vol] 9.5 fL Normal 9.0-12.[address] [facility] Comment on above: Performed By: #### L [id number] ####Flavor Room Worker: VELMA VALADEZ ([id number])[facility] ([facility])[address] [place] [address] Platelets (Bld) [#/Vol] 307 10*3/uL Normal 140-[address] [facility] Comment on above: Performed By: #### L [id number] ####Flavor Room Worker: VELMA VALADEZ ([id number])[facility] ([facility])[address] [place] [address] RBC (Bld) [#/Vol] 3.06 10*6/uL Low 3.80-5.[address] [facility] Comment on above: Performed By: #### L [id number] ####Flavor Room Worker: VELMA VALADEZ ([id number])[facility] ([facility])[address] [place] [address] WBC (Bld) [#/Vol] 4.1 10*3/uL Normal 3.6-10.[address] [facility] Comment on above: Performed By: #### L [id number] ####Flavor Room Worker: VELMA VALADEZ ([id number])[facility] ([facility])[address] [place] [address] [place] IDNon 04-12-2024 IDN Normal [facility] IDN Normal [facility] Laboratory - Coagulationon 0 04-12-2024 PT Coag (Bld) [Time] 20.3 s High 9.0 - 1 2.0 s [facility] PROTHROMBIN TIMEon INR Coag (PPP) [Relative time] 1.9 {INR} High 0.9-1.[address] [facility] Comment on above: Result Comment: Timothy [...] Myocardial Infarction Performed By: #### L [id number] ####Flavor Room Worker: VELMA VALADEZ ([id number])[address] PT Coag (PPP) [Time] 20.3 s High 9.0-12.0 [facility] Comment on above: Performed By: #### L [id number] ####Flavor Room Worker: VELMA VALADEZ ([id number])[facility] ([facility])[address] [place] [address] PT Coag (Bld) [Time]on 04-12 INR Coag (PPP) [Relative time] 1.9 {INR} High 0.9 - 1.1 [facility] Comment on above: Recommended Anticoag ulant [...] Interpretation and review of laboratory results Abnormal [facility] Progress Noteon 04-12-2024 Progress Note Normal [facility] Normal [facility] APTTon 04-11-2024 aPTT Coag (Bld) [Time] 62.7 s High 20.0-30.5 [facility] Comment on above: Result Comment: BUBBA Garcia COMMENTS:NOTE: The therapeutic time for Heparin anticoagulation, based on Xa activity inhibition, is an APTT of 46-80 seconds. Performed By: #### L [id number] ####Flavor Room Worker: VELMA VALADEZ ([phone])[facility] ([facility])[address] [place] [address] aPTT Coag (Bld) [Time] 69.0 s High 20.0-30.5 [facility] Comment on above: Result Comment: BUBBA Garcia COMMENTS:NOTE: The therapeutic time for Heparin anticoagulation, based on Xa activity inhibition, is an APTT of 46-80 seconds. Performed By: #### L [id number], [id number] ####Flavor Room Worker: VELMA VALADEZ ([id number])[facility] [place] [address] BASIC METABOLIC PANELon 03-19 Anion gap [Moles/Vol] 4 mmol/L Normal 3-13 [facility] Comment on above: Performed By: #### L [id number] ####Flavor Room Worker: VELMA VALADEZ ([id number])[facility] [place] [address] Calcium [Mass/Vol] 8.8 mg/dL Normal 8.4-10.[address] [facility] Comment on above: Performed By: #### L [id number] ####Flavor Room Worker: VELMA VALADEZ ([id number])[facility] [place] [address] [place] Chloride [Moles/Vol] 108 mmol/L High 98-107 [facility] Comment on above: Performed By: #### L AB15 ####Flavor Room Worker: VELMA VALADEZ ([id number])[facility] C[facility])[address] [place] [address] CO2 [Moles/Vol] 22 mmol/L Normal 22-30 [facility] Comment on above: Performed By: #### L [id number] ####Flavor Room Worker: VELMA VALADEZ ([phone])[facility])[address] [place] [address] Creatinine [Mass/Vol] 1.01 mg/dL Normal 0.52-1.04 [facility] Comment on above: Performed By: #### L [id number] ####Flavor Room Worker: VELMA VALADEZ ([phone])[facility])[address] [place] [address] GLOMERULAR FILTRATION RATE ML/MIN/1.73 SQ M.PREDICTED 55.0 mL/min/1.73m*2 Low >60.[address] [facility] Comment on above: Result Comment: Calc ulation based on the Chronic Kidney Disease Epidemiology Collaboration (CKD-EPI) equation refit without adjustment for race Performed By: #### L [id number] ####Flavor Room Worker: VELMA VALADEZ ([id number])[facility])[address] [place] [address] Glucose [Mass/Vol] 112 mg/dL High 70-[address] [facility] Comment on above: Performed By: #### L [id number] ####Flavor Room Worker: VELMA VALADEZ ([id number])[facility])[address] [place] [address] Potassium [Moles/Vol] 4.0 mmol/L Normal 3.5-5.1 [facility] Comment on above: Performed By: #### L [id number] ####Flavor Room Worker: VELMA VALADEZ ([id number])[facility])[address] [place] [address] [place] Sodium [Moles/Vol] 134 mmol/L Low 135-[address] [facility] Comment on above: Performed By: #### L [id number] ####Flavor Room Worker: VELMA VALADEZ ([id number])[facility])[address] [place] [address] Urea nitrogen [Mass/Vol] 16 mg/dL Normal 7-[address] [facility] Comment on above: Performed By: #### L [id number] ####Flavor Room Worker: VELMA [id number])[facility] ([facility])[address] [place] [address] Basic metabolic 1998 panelon 04-11-2024 Anion gap [Moles/Vol] 4 mmol/L 3 - 13 mmol/L [facility] Calcium [Mass/Vol] 8.8 mg/dL 8.4 - 10. 4 mg/dL [facility] Chloride [Moles/Vol] 108 mmol/L High 98 - 10 7 mmol/L [facility] CO2 [Moles/Vol] 22 mmol/L 22 - 30 mmol/L [facility] Creatinine [Mass/Vol] 1.01 mg/dL 0.52 - 1.04 mg/dL [facility] GFR/1.73 sq M.predicted (S/P/Bld) [Vol rate/Area] 55.0 mL/min Low - PINF [facility] Comment on above: Calculation based on the Chronic Kidney Disease Epidemiology Collaboration (CKD-EPI) equation refit without adjustment for race Glucose [Mass/Vol] 112 mg/dL High 70 - 100 mg/dL [facility] Interpretation and review of laboratory results Abnormal [facility] Potassium [Moles/Vol] 4.0 mmol/L 3.5 - 5.1 mmol/L [facility] Sodium [Moles/Vol] 134 mmol/L Low 135 - 145 mmol/L [facility] Urea nitrogen [Mass/Vol] 16 mg/dL 7 - 17 mg/dL [facility] CARECOORDon 04-11-2024 CARECOWOODMAN Normal [facility] CBC W Auto Differential pane l (Bld)on 04-11-2024 Basophils (Bld) [#/Vol] 0.0 10*3/uL 0.0 - 0.2 10*3/uL [facility] Basophils/100 WBC (Bld) 0.9 % 0.0 - 2.0 % [facility] Eosinophils (Bld) [#/Vol] 0.1 10*3/uL 0.0 - 0.5 10*3/uL [facility] Eosinophils/100 WBC (Bld) 2.0 % 0.0 - 6.0 % [facility] Erythrocyte distribution width (RBC) [Ratio] 14.8 % 11.5 - 15.0 % [facility] Hematocrit (Bld) [Volume fraction] 24.6 % Low 35.0 - 47.0 % [facility] Hemoglobin (Bld) [Mass/Vol] 8.3 g/dL Low 11.7 - 16.0 g/dL [facility] Immature granulocytes (Bld) [#/Vol] 0.0 10*3/uL NINF - 0.1 10*3/uL [facility] Immature granulocytes/100 WBC (Bld) 0.2 % 0.0 - 2.0 % [facility] Interpretation and review of laboratory results Abnormal [facility] Lymphocytes (Bld) [#/Vol] 1.4 10*3/uL 1.0 - 4.3 10*3/uL [facility] Lymphocytes/100 WBC (Bld) 31.9 % 15.0 - 45.0 % [facility] MCH (RBC) [Entitic mass] 30.5 pg 26.0 - 34.0 pg [facility] MCHC (RBC) [Mass/Vol] 33.7 % 30.5 - 36.0 % [facility] MCV (RBC) [Entitic vol] 90.4 fL 77.0 - 99.0 fL [facility] Monocytes (Bld) [#/Vol] 0.5 10*3/uL 0.0 - 0.9 10*3/uL [facility] Monocytes/100 WBC (Bld) 11.2 % 5.0 - 13.0 % [facility] Neutrophils (Bld) [#/Vol] 2.4 10*3/uL 1.8 - 7.5 10*3/uL [facility] Neutrophils/100 WBC (Bld) 53.8 % 38.0 - 82.0 % [facility] Nucleated RBC/100 WBC (Bld) [Ratio] 0.0 % [facility] Platelet mean volume (Bld) [Entitic vol] 10.0 fL 9.0 - 12.7 fL [facility] Platelets (Bld) [#/Vol] 244 10*3/uL 140 - 440 10*3/uL [facility] RBC (Bld) [#/Vol] 2.72 10*6/uL Low 3.80 - 5.2 0 10*6/uL [facility] WBC (Bld) [#/Vol] 4.5 10*3/uL 3.6 - 10.7 10*3/uL [facility] CBC WITH AUTO DIFFERENTIALon 04-11-2024 Basophils (Bld) [#/Vol] 0.0 10*3/uL Normal 0.0-0.2 [facility] Comment on above: Performed By: #### L [id number] ####Flavor Room Worker: VELMA VALADEZ ([id number])[facility] ([facility])[address] [place] [address] Basophils/100 WBC (Bld) 0.9 % Normal 0.0-2.0 [facility] Comment on above: Performed By: #### L [id number] ####Flavor Room Worker: VELMA VALADEZ ([id number])[facility])[address] [place] [address] Eosinophils (Bld) [#/Vol] 0.1 10*3/uL Normal 0.0-0.[address] [facility] Comment on above: Performed By: #### L [id number] ####Flavor Room Worker: VELMA VALADEZ ([id number])[facility])[address] [place] [address] Eosinophils/100 WBC (Bld) 2.0 % Normal 0.0-6.0 [facility] Comment on above: Performed By: #### L [id number] ####Flavor Room Worker: VELMA VALADEZ ([id number])[facility])[address] [place] [address] Erythrocyte distribution width (RBC) [Ratio] 14.8 % Normal 11.5-15.0 [facility] Comment on above: Performed By: #### L [id number] ####Flavor Room Worker: VELMA VALADEZ ([id number])[facility] ([facility])[address] [place] [address] Hematocrit (Bld) [Volume fraction] 24.6 % Low 35.0-47.0 [facility] Comment on above: Performed By: #### L [id number] ####Flavor Room Worker: VELMA VALADEZ ([id number])[facility])[address] [place] [address] Hemoglobin (Bld) [Mass/Vol] 8.3 g/dL Low 11.7-16.0 [facility] Comment on above: Performed By: #### L [id number] ####Flavor Room Worker: VELMA VALADEZ ([id number])[facility])[address] [place] [address] IMMATURE GRANS % 0.2 % Normal 0.0-2.0 [facility] Comment on above: Performed By: #### L [id number] ####Flavor Room Worker: VELMA VALADEZ ([id number])[facility])[address] [place] [address] IMMATURE GRANS ABSOLUTE 0.0 10*3/uL Normal <0.1 [facility] Comment on above: Performed By: #### L [id number] ####Flavor Room Worker: VELMA VALADEZ ([id number])[address] Lymphocytes (Bld) [#/Vol] 1.4 10*3/uL Normal 1.0-4.3 [facility] Comment on above: Performed By: #### L [id number] ####Flavor Room Worker: VELMA VALADEZ ([id number])[address] Lymphocytes/100 WBC (Bld) 31.9 % Normal 15.0-45.0 [facility] Comment on above: Performed By: #### L [id number] ####Flavor Room Worker: VELMA VALADEZ ([phone])[facility])[address] [place] [address] MCH (RBC) [Entitic mass] 30.5 pg Normal 26.0-34.0 [facility] Comment on above: Performed By: #### L [id number] ####Flavor Room Worker: VELMA VALADEZ ([id number])[facility])[address] [place] [address] MCHC 33.7 % Normal 30.5-36.0 [facility] Comment on above: Performed By: #### L [id number] ####Flavor Room Worker: VELMA VALADEZ ([id number])[facility] ([facility])[address] [place] [address] MCV (RBC) [Entitic vol] 90.4 fL Normal 77.0-99.0 [facility] Comment on above: Performed By: #### L [id number] ####Flavor Room Worker: VELMA VALADEZ ([id number])[facility] ([facility])[address] [place] [address] [place] Monocytes (Bld) [#/Vol] 0.5 10*3/uL Normal 0.0-0.9 [facility] Comment on above: Performed By: #### L [id number] ####Flavor Room Worker: VELMA VALADEZ ([id number])[facility] ([facility])[address] [place] [address] Monocytes/100 WBC (Bld) 11.2 % Normal 5.0-13.0 [facility] Comment on above: Performed By: #### L [id number] ####Flavor Room Worker: VELMA VALADEZ ([id number])[facility] ([facility])[address] [place] [address] [place] NEUTROPHILS ABSOLUTE 2.4 10*3/uL Normal 1.8-7.5 [facility] Comment on above: Performed By: #### L [id number] ####Flavor Room Worker: VELMA VALADEZ ([id number])[facility] ([facility])[address] [place] [address] [place] Neutrophils/100 WBC (Bld) 53.8 % Normal 38.0-82.0 [facility] Comment on above: Performed By: #### L [id number] ####Flavor Room Worker: VELMA VALADEZ ([id number])[facility] ([facility])[address] [place] [address] [place] NRBC 0.0 /100 WBCs Normal 0.0-2.0 [facility] Comment on above: Performed By: #### L [id number] ####Flavor Room Worker: VELMA VALADEZ ([id number])[facility] ([facility])[address] [place] [address] Platelet mean volume (Bld) [Entitic vol] 10.0 fL Normal 9.0-12.[address] [facility] Comment on above: Performed By: #### L [id number] ####Flavor Room Worker: VELMA VALADEZ ([id number])[facility] ([facility])[address] [place] [address] Platelets (Bld) [#/Vol] 244 10*3/uL Normal 140-[address] [facility] Comment on above: Performed By: #### L [id number] ####Flavor Room Worker: VELMA VALADEZ ([id number])[facility] ([facility])[address] [place] [address] RBC (Bld) [#/Vol] 2.72 10*6/uL Low 3.80-5.[address] [facility] Comment on above: Performed By: #### L [id number] ####Flavor Room Worker: VELMA VALADEZ ([id number])[facility] ([facility])[address] [place] [address] WBC (Bld) [#/Vol] 4.5 10*3/uL Normal 3.6-10.[address] [facility] Comment on above: Performed By: #### L [id number] ####Flavor Room Worker: VELMA VALADEZ ([id number])[facility] ([facility])[address] [place] [address] IDNon 04-11-2024 IDN Normal [facility] IDN Normal [facility] Laboratory - Coagulationon 0 04-11-2024 PT Coag (Bld) [Time] 20.9 s High 9.0 - 1 2.0 s [facility] No Panel Informationon 04-11 Interpretation and review of laboratory results Abnormal [facility] PROTHROMBIN TIMEon INR Coag (PPP) [Relative time] 1.9 {INR} High 0.9-1.[address] [facility] Comment on above: Result Comment: Timothy [...] Myocardial Infarction Performed By: #### Weston [id number], [id number] ####Flavor Room Worker: VELMA VALADEZ ([id number])[facility])[address] [place] [address] PT Coag (PPP) [Time] 20.9 s High 9.0-12.0 [facility] Comment on above: Performed By: #### Weston [id number], [id number] ####Flavor Room Worker: VELMA VALADEZ ([phone])[facility] ([facility])[address] [place] [address] PT Coag (Bld) [Time]on 04-11 INR Coag (PPP) [Relative time] 1.9 {INR} High 0.9 - 1.1 [facility] Comment on above: Recommended Anticoag ulant [...] Infarction Progress Noteon 04-11-2024 Progress Note Normal [facility] Progress Note Normal [facility] Progress Note Normal [facility] Progress Note Normal [facility] aPTT Coag (Bld) [Time]on aPTT Coag (PPP) [Time] 62.7 s High 20.0 - 30.5 s [facility] Interpretation and review of laboratory results Abnormal [facility] NOTE: The therapeuti c time for Heparin anticoagulation, based on Xa activity inhibition, is an APTT of 46-80 seconds. [facility] aPTT Coag (PPP) [Time] 69.0 s High 20.0 - 30.5 s [facility] NOTE: The therapeuti c time for Heparin anticoagulation, based on Xa activity inhibition, is an APTT of 46-80 seconds. [facility] APTTon 04-10-2024 aPTT Coag (Bld) [Time] 59.0 s High 20.0-30.5 [facility] Comment on above: Result Comment: BUBBA Garcia COMMENTS:NOTE: The therapeutic time for Heparin anticoagulation, based on Xa activity inhibition, is an APTT of 46-80 seconds. Performed By: #### L [id number] ####Flavor Room Worker: VELAM VALADEZ ([id number])[facility] ([facility])[address] [place] [address] aPTT Coag (Bld) [Time] 77.3 s High 20.0-30.5 [facility] Comment on above: Result Comment: BUBBA Garcia COMMENTS:NOTE: The therapeutic time for Heparin anticoagulation, based on Xa activity inhibition, is an APTT of 46-80 seconds. Performed By: #### L [id number], [id number] ####Flavor Room Worker: VELMA VALADEZ ([id number])[facility] ([facility])[address] [place] [address] BASIC METABOLIC PANELon 03-19 Anion gap [Moles/Vol] 3 mmol/L Normal 3-13 [facility] Comment on above: Performed By: #### L [id number] ####Flavor Room Worker: VELMA VALADEZ ([id number])[facility] ([facility])[address] [place] [address] Calcium [Mass/Vol] 9.0 mg/dL Normal 8.4-10.[address] [facility] Comment on above: Performed By: #### L [id number] ####Flavor Room Worker: VELMA VALADEZ ([id number])[facility])[address] [place] [address] Chloride [Moles/Vol] 111 mmol/L High 98-107 [facility] Comment on above: Performed By: #### L [id number] ####Flavor Room Worker: VELMA [id number])[facility])[address] [place] [address] CO2 [Moles/Vol] 21 mmol/L Low 22-30 [facility] Comment on above: Performed By: #### L AB15 ####Flavor Room Worker: VELMA VALADEZ ([phone])[facility] [place] [address] Creatinine [Mass/Vol] 1.00 mg/dL Normal 0.52-1.04 [facility] Comment on above: Performed By: #### L [id number] ####Flavor Room Worker: VELMA VALADEZ ([id number])[facility] ([facility])[address] [place] [address] GLOMERULAR FILTRATION RATE ML/MIN/1.73 SQ M.PREDICTED 55.7 mL/min/1.73m*2 Low >60.[address] [facility] Comment on above: Result Comment: Calc ulation based on the Chronic Kidney Disease Epidemiology Collaboration (CKD-EPI) equation refit without adjustment for race Performed By: #### L [id number] ####Flavor Room Worker: VELMA VALADEZ ([id number])[facility] ([facility])[address] [place] [address] Glucose [Mass/Vol] 101 mg/dL High 70-[address] [facility] Comment on above: Performed By: #### L AB15 ####Flavor Room Worker: VELMA VALADEZ ([phone])[facility] ([facility])[address] [place] [address] Potassium [Moles/Vol] 3.8 mmol/L Normal 3.5-5.1 [facility] Comment on above: Performed By: #### L [id number] ####Flavor Room Worker: VELMA VALADEZ ([id number])[facility] ([facility])[address] [place] [address] Sodium [Moles/Vol] 136 mmol/L Normal 135-[address] [facility] Comment on above: Performed By: #### L [id number] ####Flavor Room Worker: VELMA VALADEZ ([id number])[facility] ([facility])[address] [place] [address] Urea nitrogen [Mass/Vol] 15 mg/dL Normal 7-[address] [facility] Comment on above: Performed By: #### L [id number] ####Flavor Room Worker: VELMA VALADEZ ([phone])[facility] ([facility])[address] Basic metabolic 1998 panelon 04-10-2024 Anion gap [Moles/Vol] 3 mmol/L 3 - 13 mmol/L [facility] Calcium [Mass/Vol] 9.0 mg/dL 8.4 - 10. 4 mg/dL [facility] Chloride [Moles/Vol] 111 mmol/L High 98 - 10 7 mmol/L [facility] CO2 [Moles/Vol] 21 mmol/L Low 22 - 30 mmol/L [facility] Creatinine [Mass/Vol] 1.00 mg/dL 0.52 - 1.04 mg/dL [facility] GFR/1.73 sq M.predicted (S/P/Bld) [Vol rate/Area] 55.7 mL/min Low - PINF [facility] Comment on above: Calculation based on the Chronic Kidney Disease Epidemiology Collaboration (CKD-EPI) equation refit without adjustment for race Glucose [Mass/Vol] 101 mg/dL High 70 - 100 mg/dL [facility] Interpretation and review of laboratory results Abnormal [facility] Potassium [Moles/Vol] 3.8 mmol/L 3.5 - 5.1 mmol/L [facility] Sodium [Moles/Vol] 136 mmol/L 135 - 145 mmol/L [facility] Urea nitrogen [Mass/Vol] 15 mg/dL 7 - 17 mg/dL [facility] CARECOORDon 04-10-2024 CARECOORD Normal [facility] CBC W Auto Differential pane l (Bld)on 04-10-2024 Basophils (Bld) [#/Vol] 0.0 10*3/uL 0.0 - 0.2 10*3/uL [facility] Basophils/100 WBC (Bld) 0.7 % 0.0 - 2.0 % [facility] Eosinophils (Bld) [#/Vol] 0.1 10*3/uL 0.0 - 0.5 10*3/uL [facility] Eosinophils/100 WBC (Bld) 2.1 % 0.0 - 6.0 % [facility] Erythrocyte distribution width (RBC) [Ratio] 14.7 % 11.5 - 15.0 % [facility] Hematocrit (Bld) [Volume fraction] 26.0 % Low 35.0 - 47.0 % [facility] Hemoglobin (Bld) [Mass/Vol] 8.6 g/dL Low 11.7 - 16.0 g/dL [facility] Immature granulocytes (Bld) [#/Vol] 0.0 10*3/uL NINF - 0.1 10*3/uL [facility] Immature granulocytes/100 WBC (Bld) 0.2 % 0.0 - 2.0 % [facility] Interpretation and review of laboratory results Abnormal [facility] Lymphocytes (Bld) [#/Vol] 1.4 10*3/uL 1.0 - 4.3 10*3/uL [facility] Lymphocytes/100 WBC (Bld) 32.9 % 15.0 - 45.0 % [facility] MCH (RBC) [Entitic mass] 30.1 pg 26.0 - 34.0 pg [facility] MCHC (RBC) [Mass/Vol] 33.1 % 30.5 - 36.0 % [facility] MCV (RBC) [Entitic vol] 90.9 fL 77.0 - 99.0 fL [facility] Monocytes (Bld) [#/Vol] 0.6 10*3/uL 0.0 - 0.9 10*3/uL [facility] Monocytes/100 WBC (Bld) 13.6 % High 5.0 - 13.0 % [facility] Neutrophils (Bld) [#/Vol] 2.1 10*3/uL 1.8 - 7.5 10*3/uL [facility] Neutrophils/100 WBC (Bld) 50.5 % 38.0 - 82.0 % [facility] Nucleated RBC/100 WBC (Bld) [Ratio] 0.0 % [facility] Platelet mean volume (Bld) [Entitic vol] 10.0 fL 9.0 - 12.7 fL [facility] Platelets (Bld) [#/Vol] 238 10*3/uL 140 - 440 10*3/uL [facility] RBC (Bld) [#/Vol] 2.86 10*6/uL Low 3.80 - 5.2 0 10*6/uL [facility] WBC (Bld) [#/Vol] 4.3 10*3/uL 3.6 - 10.7 10*3/uL [facility] CBC WITH AUTO DIFFERENTIALon 04-10-2024 Basophils (Bld) [#/Vol] 0.0 10*3/uL Normal 0.0-0.2 [facility] Comment on above: Performed By: #### L [id number] ####Flavor Room Worker: VELMA VALADEZ ([id number])[facility])[address] [place] [address] Basophils/100 WBC (Bld) 0.7 % Normal 0.0-2.0 [facility] Comment on above: Performed By: #### L [id number] ####Flavor Room Worker: VELMA VALADEZ ([id number])[facility])[address] [place] [address] Eosinophils (Bld) [#/Vol] 0.1 10*3/uL Normal 0.0-0.5 [facility] Comment on above: Performed By: #### L [id number] ####Flavor Room Worker: VELMA VALADEZ ([id number])[facility])[address] [place] [address] Eosinophils/100 WBC (Bld) 2.1 % Normal 0.0-6.0 [facility] Comment on above: Performed By: #### L [id number] ####Flavor Room Worker: VELMA VALADEZ ([id number])[facility])[address] [place] [address] Erythrocyte distribution width (RBC) [Ratio] 14.7 % Normal 11.5-15.0 [facility] Comment on above: Performed By: #### L [id number] ####Flavor Room Worker: VELMA VALADEZ ([id number])[facility])[address] [place] [address] Hematocrit (Bld) [Volume fraction] 26.0 % Low 35.0-47.0 [facility] Comment on above: Performed By: #### L [id number] ####Flavor Room Worker: VELMA VALADEZ ([id number])[facility])[address] [place] [address] Hemoglobin (Bld) [Mass/Vol] 8.6 g/dL Low 11.7-16.0 [facility] Comment on above: Performed By: #### L [id number] ####Flavor Room Worker: VELMA VALADEZ ([phone])[facility])[address] [place] [address] IMMATURE GRANS % 0.2 % Normal 0.0-2.0 [facility] Comment on above: Performed By: #### L [id number] ####Flavor Room Worker: VELMA VALADEZ ([id number])[address] IMMATURE GRANS ABSOLUTE 0.0 10*3/uL Normal <0.1 [facility] Comment on above: Performed By: #### L [id number] ####Flavor Room Worker: VELMA VALADEZ ([id number])[facility])[address] [place] [address] Lymphocytes (Bld) [#/Vol] 1.4 10*3/uL Normal 1.0-4.3 [facility] Comment on above: Performed By: #### L [id number] ####Flavor Room Worker: VELMA VALADEZ ([id number])[address] Lymphocytes/100 WBC (Bld) 32.9 % Normal 15.0-45.0 [facility] Comment on above: Performed By: #### L [id number] ####Flavor Room Worker: VELMA VALADEZ ([id number])[facility])[address] [place] [address] MCH (RBC) [Entitic mass] 30.1 pg Normal 26.0-34.0 [facility] Comment on above: Performed By: #### L [id number] ####Flavor Room Worker: VELMA VALADEZ ([id number])[facility])[address] [place] [address] MCHC 33.1 % Normal 30.5-36.0 [facility] Comment on above: Performed By: #### L [id number] ####Flavor Room Worker: VELMA VALADEZ ([id number])[facility])[address] [place] [address] MCV (RBC) [Entitic vol] 90.9 fL Normal 77.0-99.0 [facility] Comment on above: Performed By: #### L [id number] ####Flavor Room Worker: VELMA VALADEZ ([id number])[facility])[address] [place] [address] Monocytes (Bld) [#/Vol] 0.6 10*3/uL Normal 0.0-0.9 [facility] [facility] Comment on above: Performed By: #### L [id number] ####Flavor Room Worker: VELMA VALADEZ ([id number])[facility] ([facility])[address] [place] [address] Monocytes/100 WBC (Bld) 13.6 % High 5.0-13.0 [facility] Comment on above: Performed By: #### L [id number] ####Flavor Room Worker: VELMA VALADEZ ([id number])[facility] ([facility])[address] [place] [address] NEUTROPHILS ABSOLUTE 2.1 10*3/uL Normal 1.8-7.5 [facility] Comment on above: Performed By: #### L [id number] ####Flavor Room Worker: VELMA VALADEZ ([id number])[facility] ([facility])[address] [place] [address] Neutrophils/100 WBC (Bld) 50.5 % Normal 38.0-82.0 [facility] Comment on above: Performed By: #### L [id number] ####Flavor Room Worker: VELMA VALADEZ ([phone])[facility] ([facility])[address] [place] [address] [place] NRBC 0.0 /100 WBCs Normal 0.0-2.0 [facility] Comment on above: Performed By: #### L [id number] ####Flavor Room Worker: VELMA VALADEZ ([id number])[facility])[address] [place] [address] Platelet mean volume (Bld) [Entitic vol] 10.0 fL Normal 9.0-12.[address] [facility] Comment on above: Performed By: #### L [id number] ####Flavor Room Worker: VELMA VALADEZ ([id number])[facility] ([facility])[address] [place] [address] Platelets (Bld) [#/Vol] 238 10*3/uL Normal 140-[address] [facility] Comment on above: Performed By: #### L [id number] ####Flavor Room Worker: VELMA VALADEZ ([id number])[facility])[address] [place] [address] RBC (Bld) [#/Vol] 2.86 10*6/uL Low 3.80-5.[address] [facility] Comment on above: Performed By: #### L [id number] ####Flavor Room Worker: VELMA VALADEZ ([id number])[facility])[address] [place] [address] WBC (Bld) [#/Vol] 4.3 10*3/uL Normal 3.6-10.[address] [facility] Comment on above: Performed By: #### L [id number] ####Flavor Room Worker: VELMA VALADEZ ([id number])[facility])[address] [place] [address] IDNon 04-10-2024 IDN Normal [facility] Laboratory - Coagulationon 0 04-10-2024 PT Coag (Bld) [Time] 17.7 s High 9.0 - 1 2.0 s [facility] No Panel Informationon 04-10 Interpretation and review of laboratory results Abnormal [facility] PROTHROMBIN TIMEon INR Coag (PPP) [Relative time] 1.6 {INR} High 0.9-1.[address] [facility] Comment on above: Result Comment: Timothy [...] Myocardial Infarction Performed By: #### Weston [id number], [id number] ####Flavor Room Worker: VELMA VALADEZ ([phone])[facility] ([facility])[address] [place] [address] PT Coag (PPP) [Time] 17.7 s High 9.0-12.0 [facility] Comment on above: Performed By: #### Weston [id number], [id number] ####Flavor Room Worker: VELMA VALADEZ ([id number])[facility] ([facility])[address] [place] [address] PT Coag (Bld) [Time]on 04-10 INR Coag (PPP) [Relative time] 1.6 {INR} High 0.9 - 1.1 [facility] Comment on above: Recommended Anticoag ulant [...] Infarction Progress Noteon 04-10-2024 Progress Note Normal [facility] Progress Note Nutrition update completed. Chart reviewed. Patient to be monitored and followed by the diet infrastructure technician. FADI Farrar Normal [facility] Progress Note Normal [facility] aPTT Coag (Bld) [Time]on aPTT Coag (PPP) [Time] 59.0 s High 20.0 - 30.5 s [facility] Interpretation and review of laboratory results Abnormal [facility] NOTE: The therapeuti c time for Heparin anticoagulation, based on Xa activity inhibition, is an APTT of 46-80 seconds. [facility] aPTT Coag (PPP) [Time] 77.3 s High 20.0 - 30.5 s [facility] NOTE: The therapeuti c time for Heparin anticoagulation, based on Xa activity inhibition, is an APTT of 46-80 seconds. [facility] APTTon 04-09-2024 aPTT Coag (Bld) [Time] 58.9 s High 20.0-30.5 [facility] Comment on above: Result Comment: BUBBA R COMMENTS:NOTE: The therapeutic time for Heparin anticoagulation, based on Xa activity inhibition, is an APTT of 46-80 seconds. Performed By: #### L [id number] ####Flavor Room Worker: VELMA VALADEZ ([id number])[address] aPTT Coag (Bld) [Time] 64.6 s High 20.0-30.5 [facility] Comment on above: Result Comment: BUBBA Garcia COMMENTS:NOTE: The therapeutic time for Heparin anticoagulation, based on Xa activity inhibition, is an APTT of 46-80 seconds. Performed By: #### L [id number] ####Flavor Room Worker: VELMA VALADEZ ([id number])[address] aPTT Coag (Bld) [Time] 82.3 s High 20.0-30.5 [facility] Comment on above: Result Comment: BUBBA Garcia COMMENTS:NOTE: The therapeutic time for Heparin anticoagulation, based on Xa activity inhibition, is an APTT of 46-80 seconds. Performed By: #### L [id number], [id number] ####Flavor Room Worker: VELMA VALADEZ ([id number])[address] BASIC METABOLIC PANELon - Anion gap [Moles/Vol] 5 mmol/L Normal 3-13 [facility] Comment on above: Performed By: #### L [id number] ####Flavor Room Worker: VELMA VALADEZ ([id number])[facility])[address] [place] [address] Calcium [Mass/Vol] 8.9 mg/dL Normal 8.4-10.[address] [facility] Comment on above: Performed By: #### L [id number] ####Flavor Room Worker: VELMA VALADEZ ([id number])[facility] ([facility])[address] [place] [address] [place] Chloride [Moles/Vol] 116 mmol/L High 98-107 [facility] Comment on above: Performed By: #### L [id number] ####Flavor Room Worker: VELMA VALADEZ ([id number])[facility] ([facility])[address] [place] [address] CO2 [Moles/Vol] 16 mmol/L Low 22-30 [facility] Comment on above: Performed By: #### L [id number] ####Flavor Room Worker: VELMA VALADEZ ([id number])[facility] ([facility])[address] [place] [address] Creatinine [Mass/Vol] 0.93 mg/dL Normal 0.52-1.04 [facility] Comment on above: Performed By: #### L [id number] ####Flavor Room Worker: VELMA VALADEZ ([id number])[facility] ([facility])[address] [place] [address] [place] GLOMERULAR FILTRATION RATE ML/MIN/1.73 SQ M.PREDICTED 60.7 mL/min/1.73m*2 Normal >60.[address] [facility] Comment on above: Result Comment: Calc ulation based on the Chronic Kidney Disease Epidemiology Collaboration (CKD-EPI) equation refit without adjustment for race Performed By: #### L AB15 ####Flavor Room Worker: VELMA VALADEZ ([id number])[facility] ([facility])[address] [place] [address] [place] Glucose [Mass/Vol] 119 mg/dL High 70-[address] [facility] Comment on above: Performed By: #### L AB15 ####Flavor Room Worker: VELMA VALADEZ ([id number])[facility] ([facility])[address] [place] [address] Potassium [Moles/Vol] 4.4 mmol/L Normal 3.5-5.1 [facility] Comment on above: Performed By: #### L AB15 ####Flavor Room Worker: VELMA VALADEZ ([id number])[facility] ([facility])[address] [place] [address] Sodium [Moles/Vol] 136 mmol/L Normal 135-[address] [facility] Comment on above: Performed By: #### L [id number] ####Flavor Room Worker: VELMA VALADEZ ([id number])[facility] ([facility])[address] [place] [address] Urea nitrogen [Mass/Vol] 16 mg/dL Normal 7-[address] [facility] Comment on above: Performed By: #### L [id number] ####Flavor Room Worker: VELMA VALADEZ ([id number])[facility] ([facility])[address] [place] [address] Basic metabolic 1998 panelon 04-09-2024 Anion gap [Moles/Vol] 5 mmol/L 3 - 13 mmol/L [facility] Calcium [Mass/Vol] 8.9 mg/dL 8.4 - 10. 4 mg/dL [facility] Chloride [Moles/Vol] 116 mmol/L High 98 - 10 7 mmol/L [facility] CO2 [Moles/Vol] 16 mmol/L Low 22 - 30 mmol/L [facility] Creatinine [Mass/Vol] 0.93 mg/dL 0.52 - 1.04 mg/dL [facility] GFR/1.73 sq M.predicted (S/P/Bld) [Vol rate/Area] 60.7 mL/min - PINF [facility] Comment on above: Calculation based on the Chronic Kidney Disease Epidemiology Collaboration (CKD-EPI) equation refit without adjustment for race Glucose [Mass/Vol] 119 mg/dL High 70 - 100 mg/dL [facility] Interpretation and review of laboratory results Abnormal [facility] Potassium [Moles/Vol] 4.4 mmol/L 3.5 - 5.1 mmol/L [facility] Sodium [Moles/Vol] 136 mmol/L 135 - 145 mmol/L [facility] Urea nitrogen [Mass/Vol] 16 mg/dL 7 - 17 mg/dL [facility] CARECOORDon 04-09-2024 CARECOORD Normal [facility] CBC W Auto Differential pane l (Bld)on 04-09-2024 Basophils (Bld) [#/Vol] 0.0 10*3/uL 0.0 - 0.2 10*3/uL [facility] Basophils/100 WBC (Bld) 0.6 % 0.0 - 2.0 % [facility] Eosinophils (Bld) [#/Vol] 0.1 10*3/uL 0.0 - 0.5 10*3/uL [facility] Eosinophils/100 WBC (Bld) 0.9 % 0.0 - 6.0 % [facility] Erythrocyte distribution width (RBC) [Ratio] 14.8 % 11.5 - 15.0 % [facility] Hematocrit (Bld) [Volume fraction] 28.2 % Low 35.0 - 47.0 % [facility] Hemoglobin (Bld) [Mass/Vol] 9.0 g/dL Low 11.7 - 16.0 g/dL [facility] Immature granulocytes (Bld) [#/Vol] 0.0 10*3/uL NINF - 0.1 10*3/uL [facility] Immature granulocytes/100 WBC (Bld) 0.4 % 0.0 - 2.0 % [facility] Interpretation and review of laboratory results Abnormal [facility] Lymphocytes (Bld) [#/Vol] 2.2 10*3/uL 1.0 - 4.3 10*3/uL [facility] Lymphocytes/100 WBC (Bld) 31.2 % 15.0 - 45.0 % [facility] MCH (RBC) [Entitic mass] 29.8 pg 26.0 - 34.0 pg [facility] MCHC (RBC) [Mass/Vol] 31.9 % 30.5 - 36.0 % [facility] MCV (RBC) [Entitic vol] 93.4 fL 77.0 - 99.0 fL [facility] Monocytes (Bld) [#/Vol] 0.7 10*3/uL 0.0 - 0.9 10*3/uL [facility] Monocytes/100 WBC (Bld) 10.7 % 5.0 - 13.0 % [facility] Neutrophils (Bld) [#/Vol] 3.9 10*3/uL 1.8 - 7.5 10*3/uL [facility] Neutrophils/100 WBC (Bld) 56.2 % 38.0 - 82.0 % [facility] Nucleated RBC/100 WBC (Bld) [Ratio] 0.0 % [facility] Platelet mean volume (Bld) [Entitic vol] 10.2 fL 9.0 - 12.7 fL [facility] Platelets (Bld) [#/Vol] 235 10*3/uL 140 - 440 10*3/uL [facility] RBC (Bld) [#/Vol] 3.02 10*6/uL Low 3.80 - 5.2 0 10*6/uL [facility] WBC (Bld) [#/Vol] 6.9 10*3/uL 3.6 - 10.7 10*3/uL [facility] CBC WITH AUTO DIFFERENTIALon 04-09-2024 Basophils (Bld) [#/Vol] 0.0 10*3/uL Normal 0.0-0.2 [facility] Comment on above: Performed By: #### L [id number] ####Flavor Room Worker: VELMA VALADEZ ([id number])[address] Basophils/100 WBC (Bld) 0.6 % Normal 0.0-2.0 [facility] Comment on above: Performed By: #### L [id number] ####Flavor Room Worker: VELMA VALADEZ ([phone])[facility] ([facility])[address] [place] [address] Eosinophils (Bld) [#/Vol] 0.1 10*3/uL Normal 0.0-0.5 [facility] Comment on above: Performed By: #### L [id number] ####Flavor Room Worker: VELMA VALADEZ ([id number])[facility])[address] [place] [address] Eosinophils/100 WBC (Bld) 0.9 % Normal 0.0-6.0 [facility] Comment on above: Performed By: #### L [id number] ####Flavor Room Worker: VELMA VALADEZ ([id number])[address] Erythrocyte distribution width (RBC) [Ratio] 14.8 % Normal 11.5-15.0 [facility] Comment on above: Performed By: #### L [id number] ####Flavor Room Worker: VELMA VALADEZ ([id number])[facility])[address] [place] [address] Hematocrit (Bld) [Volume fraction] 28.2 % Low 35.0-47.0 [facility] Comment on above: Performed By: #### L [id number] ####Flavor Room Worker: VELMA VALADEZ ([id number])[address] Hemoglobin (Bld) [Mass/Vol] 9.0 g/dL Low 11.7-16.0 [facility] Comment on above: Performed By: #### L [id number] ####Flavor Room Worker: VELMA VALADEZ ([id number])[facility])[address] [place] [address] IMMATURE GRANS % 0.4 % Normal 0.0-2.0 [facility] Comment on above: Performed By: #### L [id number] ####Flavor Room Worker: VELMA VALADEZ ([id number])[address] IMMATURE GRANS ABSOLUTE 0.0 10*3/uL Normal <0.1 [facility] Comment on above: Performed By: #### L [id number] ####Flavor Room Worker: VELMA VALADEZ ([id number])[address] Lymphocytes (Bld) [#/Vol] 2.2 10*3/uL Normal 1.0-4.3 [facility] Comment on above: Performed By: #### L [id number] ####Flavor Room Worker: VELMA VALADEZ ([id number])[facility])[address] [place] [address] Lymphocytes/100 WBC (Bld) 31.2 % Normal 15.0-45.0 [facility] Comment on above: Performed By: #### L [id number] ####Flavor Room Worker: VELMA VALADEZ ([id number])[facility])[address] [place] [address] MCH (RBC) [Entitic mass] 29.8 pg Normal 26.0-34.0 [facility] Comment on above: Performed By: #### L [id number] ####Flavor Room Worker: VELMA VALADEZ ([id number])[facility])[address] [place] [address] MCHC 31.9 % Normal 30.5-36.0 [facility] Comment on above: Performed By: #### L [id number] ####Flavor Room Worker: VELMA VALADEZ ([id number])[facility])[address] [place] [address] MCV (RBC) [Entitic vol] 93.4 fL Normal 77.0-99.0 [facility] Comment on above: Performed By: #### L [id number] ####Flavor Room Worker: VELMA VALADEZ ([id number])[facility])[address] [place] [address] Monocytes (Bld) [#/Vol] 0.7 10*3/uL Normal 0.0-0.9 [facility] Comment on above: Performed By: #### L [id number] ####Flavor Room Worker: VELMA VALADEZ ([id number])[facility])[address] [place] [address] Monocytes/100 WBC (Bld) 10.7 % Normal 5.0-13.0 [facility] Comment on above: Performed By: #### L [id number] ####Flavor Room Worker: VELMA VALADEZ ([id number])[facility])[address] [place] [address] NEUTROPHILS ABSOLUTE 3.9 10*3/uL Normal 1.8-7.5 [facility] Comment on above: Performed By: #### L [id number] ####Flavor Room Worker: VELMA VALADEZ ([id number])[facility] ([facility])[address] [place] [address] Neutrophils/100 WBC (Bld) 56.2 % Normal 38.0-82.[address] [facility] Comment on above: Performed By: #### L [id number] ####Flavor Room Worker: VELMA VALADEZ ([id number])[facility] ([facility])[address] [place] [address] NRBC 0.0 /100 WBCs Normal 0.0-2.0 [facility] Comment on above: Performed By: #### L [id number] ####Flavor Room Worker: VELMA VALADEZ ([id number])[facility] ([facility])[address] [place] [address] Platelet mean volume (Bld) [Entitic vol] 10.2 fL Normal 9.0-12.[address] [facility] Comment on above: Performed By: #### L [id number] ####Flavor Room Worker: VELMA VALADEZ ([id number])[facility] ([facility])[address] [place] [address] [place] Platelets (Bld) [#/Vol] 235 10*3/uL Normal 140-[address] [facility] Comment on above: Performed By: #### L [id number] ####Flavor Room Worker: VELMA VALADEZ ([id number])[facility] ([facility])[address] [place] [address] [place] RBC (Bld) [#/Vol] 3.02 10*6/uL Low 3.80-5.20 [facility] Comment on above: Performed By: #### L [id number] ####Flavor Room Worker: VELMA VALADEZ ([id number])[facility] ([facility])[address] [place] [address] [place] WBC (Bld) [#/Vol] 6.9 10*3/uL Normal 3.6-10.7 [facility] Comment on above: Performed By: #### Weston [id number] ####Flavor Room Worker: VELMA VALADEZ ([id number])[facility])[address] [place] [address] Laboratory - Coagulationon 0 04-09-2024 PT Coag (Bld) [Time] 13.8 s High 9.0 - 1 2.0 s [facility] No Panel Informationon 04-09 Interpretation and review of laboratory results Abnormal [facility] PROTHROMBIN TIMEon INR Coag (PPP) [Relative time] 1.2 {INR} High 0.9-1.[address] [facility] Comment on above: Result Comment: Timothy [...] Myocardial Infarction Performed By: #### Weston [id number], [id number] ####Flavor Room Worker: VELMA VALADEZ ([id number])[facility])[address] [place] [address] PT Coag (PPP) [Time] 13.8 s High 9.0-12.0 [facility] Comment on above: Performed By: #### L [id number], [id number] ####Flavor Room Worker: VELMA VALADEZ ([phone])[facility])[address] [place] [address] PT Coag (Bld) [Time]on 04-09 INR Coag (PPP) [Relative time] 1.2 {INR} High 0.9 - 1.1 [facility] Comment on above: Recommended Anticoag ulant [...] Infarction Progress Noteon 04-09-2024 Progress Note Normal [facility] Progress Note Normal [facility] XR CHEST 1 VIEWon 04-09-2024 XR CHEST 1 VIEW Normal [facility] XR Chest Single viewon 04-09 Mild cardiomegaly and pulmonary venous congestion with small pleural effusions. Report Dictated on Electronically Signed By: Di Leggett MD Electronically Signed Date/Time: 04/09/2024 1:42 PM EDT [facility] Patient Name: MEL CARVER RD [...] the left shoulder. No acute osseous findings. [facility] Di Leggett M D - 04/09/2024 [...] Electronically Signed Date/Time: 04/09/2024 1:42 PM EDT [facility] Radiology Study observation (narrative) [facility] XR Chest Single viewOrdered By: Di Leggett on 04-09-2024 [facility] Work Phone: aPTT Coag (Bld) [Time]on aPTT Coag (PPP) [Time] 58.9 s High 20.0 - 30.5 s [facility] Interpretation and review of laboratory results Abnormal [facility] NOTE: The therapeuti c time for Heparin anticoagulation, based on Xa activity inhibition, is an APTT of 46-80 seconds. [facility] aPTT Coag (PPP) [Time] 64.6 s High 20.0 - 30.5 s [facility] Interpretation and review of laboratory results Abnormal [facility] NOTE: The therapeuti c time for Heparin anticoagulation, based on Xa activity inhibition, is an APTT of 46-80 seconds. [facility] aPTT Coag (PPP) [Time] 82.3 s High 20.0 - 30.5 s [facility] NOTE: The therapeuti c time for Heparin anticoagulation, based on Xa activity inhibition, is an APTT of 46-80 seconds. [facility] APTTon 04-08-2024 aPTT Coag (Bld) [Time] 51.5 s High 20.0-30.5 [facility] Comment on above: Result Comment: BUBBA Garcia COMMENTS:NOTE: The therapeutic time for Heparin anticoagulation, based on Xa activity inhibition, is an APTT of 46-80 seconds. Performed By: #### L [id number] ####Flavor Room Worker: VELMA VALADEZ ([id number])[facility] ([facility] aPTT Coag (Bld) [Time] 59.8 s High 20.0-30.5 [facility] Comment on above: Result Comment: BUBBA Garcia COMMENTS:NOTE: The therapeutic time for Heparin anticoagulation, based on Xa activity inhibition, is an APTT of 46-80 seconds. Performed By: #### L [id number] ####Flavor Room Worker: VELMA VALADEZ ([id number])[facility] ([facility])[address] [place] [address] aPTT Coag (Bld) [Time] 41.4 s High 20.0-30.5 [facility] Comment on above: Result Comment: BUBBA Garcia COMMENTS:NOTE: The therapeutic time for Heparin anticoagulation, based on Xa activity inhibition, is an APTT of 46-80 seconds. Performed By: #### L [id number], [id number] ####Flavor Room Worker: VELMA VALADEZ ([id number])[facility] ([facility])[address] [place] [address] BASIC METABOLIC PANELon 09-2 Anion gap [Moles/Vol] 5 mmol/L Normal 3-13 [facility] Comment on above: Performed By: #### L AB15 ####Flavor Room Worker: VELMA VALADEZ ([id number])[facility] ([facility])[address] [place] [address] Calcium [Mass/Vol] 8.9 mg/dL Normal 8.4-10.[address] [facility] Comment on above: Performed By: #### L AB15 ####Flavor Room Worker: VELMA VALADEZ ([id number])[facility] ([facility])[address] [place] [address] Chloride [Moles/Vol] 113 mmol/L High 98-107 [facility] Comment on above: Performed By: #### L AB15 ####Flavor Room Worker: VELMA VALADEZ ([id number])[facility] ([facility])[address] [place] [address] CO2 [Moles/Vol] 17 mmol/L Low 22-30 [facility] Comment on above: Performed By: #### L AB15 ####Flavor Room Worker: VELMA [id number])[facility] ([facility] [place] [address] Creatinine [Mass/Vol] 0.98 mg/dL Normal 0.52-1.04 [facility] Comment on above: Performed By: #### L AB15 ####Flavor Room Worker: VELMA VALADEZ ([id number])[facility] ([facility])[address] [place] [address] [place] GLOMERULAR FILTRATION RATE ML/MIN/1.73 SQ M.PREDICTED 57.0 mL/min/1.73m*2 Low >60.[address] [facility] Comment on above: Result Comment: Calc ulation based on the Chronic Kidney Disease Epidemiology Collaboration (CKD-EPI) equation refit without adjustment for race Performed By: #### L AB15 ####Flavor Room Worker: VELMA VALADEZ ([id number])[facility] ([facility])[address] [place] [address] Glucose [Mass/Vol] 116 mg/dL High 70-[address] [facility] Comment on above: Performed By: #### L AB15 ####Flavor Room Worker: VELMA VALADEZ ([id number])[facility] ([facility])[address] [place] [address] Potassium [Moles/Vol] 4.5 mmol/L Normal 3.5-5.1 [facility] Comment on above: Performed By: #### L AB15 ####Flavor Room Worker: VELMA VALADEZ ([id number])[facility] [place] [address] [place] Sodium [Moles/Vol] 135 mmol/L Normal 135-[address] [facility] Comment on above: Performed By: #### L [id number] ####Flavor Room Worker: VELMA VALADEZ ([id number])[facility] ([facility])[address] [place] [address] [place] Urea nitrogen [Mass/Vol] 18 mg/dL High 7-[address] [facility] Comment on above: Performed By: #### L [id number] ####Flavor Room Worker: VELMA VALADEZ ([id number])[facility] ([facility])[address] [place] [address] Basic metabolic 1998 panelon 04-08-2024 Anion gap [Moles/Vol] 5 mmol/L 3 - 13 mmol/L [facility] Calcium [Mass/Vol] 8.9 mg/dL 8.4 - 10. 4 mg/dL [facility] Chloride [Moles/Vol] 113 mmol/L High 98 - 10 7 mmol/L [facility] CO2 [Moles/Vol] 17 mmol/L Low 22 - 30 mmol/L [facility] Creatinine [Mass/Vol] 0.98 mg/dL 0.52 - 1.04 mg/dL [facility] GFR/1.73 sq M.predicted (S/P/Bld) [Vol rate/Area] 57.0 mL/min Low - PINF [facility] Comment on above: Calculation based on the Chronic Kidney Disease Epidemiology Collaboration (CKD-EPI) equation refit without adjustment for race Glucose [Mass/Vol] 116 mg/dL High 70 - 100 mg/dL [facility] Interpretation and review of laboratory results Abnormal [facility] Potassium [Moles/Vol] 4.5 mmol/L 3.5 - 5.1 mmol/L [facility] Sodium [Moles/Vol] 135 mmol/L 135 - 145 mmol/L [facility] Urea nitrogen [Mass/Vol] 18 mg/dL High 7 - 17 mg/dL [facility] CBC W Auto Differential pane l (Bld)on 04-08-2024 Basophils (Bld) [#/Vol] 0.0 10*3/uL 0.0 - 0.2 10*3/uL [facility] Basophils/100 WBC (Bld) 0.5 % 0.0 - 2.0 % [facility] Eosinophils (Bld) [#/Vol] 0.1 10*3/uL 0.0 - 0.5 10*3/uL [facility] Eosinophils/100 WBC (Bld) 0.9 % 0.0 - 6.0 % [facility] Erythrocyte distribution width (RBC) [Ratio] 14.8 % 11.5 - 15.0 % [facility] Hematocrit (Bld) [Volume fraction] 27.0 % Low 35.0 - 47.0 % [facility] Hemoglobin (Bld) [Mass/Vol] 8.6 g/dL Low 11.7 - 16.0 g/dL [facility] Immature granulocytes (Bld) [#/Vol] 0.0 10*3/uL NINF - 0.1 10*3/uL [facility] Immature granulocytes/100 WBC (Bld) 0.4 % 0.0 - 2.0 % [facility] Interpretation and review of laboratory results Abnormal [facility] Lymphocytes (Bld) [#/Vol] 1.7 10*3/uL 1.0 - 4.3 10*3/uL [facility] Lymphocytes/100 WBC (Bld) 23.3 % 15.0 - 45.0 % [facility] MCH (RBC) [Entitic mass] 30.2 pg 26.0 - 34.0 pg [facility] MCHC (RBC) [Mass/Vol] 31.9 % 30.5 - 36.0 % [facility] MCV (RBC) [Entitic vol] 94.7 fL 77.0 - 99.0 fL [facility] Monocytes (Bld) [#/Vol] 0.8 10*3/uL 0.0 - 0.9 10*3/uL [facility] Monocytes/100 WBC (Bld) 10.2 % 5.0 - 13.0 % [facility] Neutrophils (Bld) [#/Vol] 4.8 10*3/uL 1.8 - 7.5 10*3/uL [facility] Neutrophils/100 WBC (Bld) 64.7 % 38.0 - 82.0 % [facility] Nucleated RBC/100 WBC (Bld) [Ratio] 0.0 % [facility] Platelet mean volume (Bld) [Entitic vol] 10.1 fL 9.0 - 12.7 fL [facility] Platelets (Bld) [#/Vol] 223 10*3/uL 140 - 440 10*3/uL [facility] RBC (Bld) [#/Vol] 2.85 10*6/uL Low 3.80 - 5.2 0 10*6/uL [facility] WBC (Bld) [#/Vol] 7.5 10*3/uL 3.6 - 10.7 10*3/uL [facility] CBC WITH AUTO DIFFERENTIALon 04-08-2024 Basophils (Bld) [#/Vol] 0.0 10*3/uL Normal 0.0-0.[address] [facility] Comment on above: Performed By: #### L [id number] ####Flavor Room Worker: VELMA VALADEZ ([id number])[facility])[address] [place] [address] Basophils/100 WBC (Bld) 0.5 % Normal 0.0-2.0 [facility] Comment on above: Performed By: #### L [id number] ####Flavor Room Worker: VELMA VALADEZ ([id number])[facility])[address] [place] [address] Eosinophils (Bld) [#/Vol] 0.1 10*3/uL Normal 0.0-0.5 [facility] Comment on above: Performed By: #### L [id number] ####Flavor Room Worker: VELMA VALADEZ ([id number])[facility])[address] [place] [address] Eosinophils/100 WBC (Bld) 0.9 % Normal 0.0-6.0 [facility] Comment on above: Performed By: #### L [id number] ####Flavor Room Worker: VELMA VALADEZ ([id number])[facility])[address] [place] [address] Erythrocyte distribution width (RBC) [Ratio] 14.8 % Normal 11.5-15.0 [facility] Comment on above: Performed By: #### L [id number] ####Flavor Room Worker: VELMA VALADEZ ([id number])[facility])[address] [place] [address] Hematocrit (Bld) [Volume fraction] 27.0 % Low 35.0-47.0 [facility] Comment on above: Performed By: #### L [id number] ####Flavor Room Worker: VELMA VALADEZ ([id number])[facility])[address] [place] [address] Hemoglobin (Bld) [Mass/Vol] 8.6 g/dL Low 11.7-16.0 [facility] Comment on above: Performed By: #### L [id number] ####Flavor Room Worker: VELMA VALADEZ ([id number])[facility] ([facility])[address] [place] [address] IMMATURE GRANS % 0.4 % Normal 0.0-2.0 [facility] Comment on above: Performed By: #### L [id number] ####Flavor Room Worker: VELMA VALADEZ ([id number])[facility])[address] [place] [address] IMMATURE GRANS ABSOLUTE 0.0 10*3/uL Normal <0.1 [facility] Comment on above: Performed By: #### L [id number] ####Flavor Room Worker: VELMA VALADEZ ([id number])[facility])[address] [place] [address] Lymphocytes (Bld) [#/Vol] 1.7 10*3/uL Normal 1.0-4.3 [facility] Comment on above: Performed By: #### L [id number] ####Flavor Room Worker: VELMA VALADEZ ([id number])[facility])[address] [place] [address] Lymphocytes/100 WBC (Bld) 23.3 % Normal 15.0-45.0 [facility] Comment on above: Performed By: #### L [id number] ####Flavor Room Worker: VELMA VALADEZ ([id number])[facility])[address] [place] [address] MCH (RBC) [Entitic mass] 30.2 pg Normal 26.0-34.0 [facility] Comment on above: Performed By: #### L [id number] ####Flavor Room Worker: VELMA VALADEZ ([id number])[facility])[address] [place] [address] MCHC 31.9 % Normal 30.5-36.0 [facility] Comment on above: Performed By: #### L [id number] ####Flavor Room Worker: VELMA VALADEZ ([id number])[facility])[address] [place] [address] MCV (RBC) [Entitic vol] 94.7 fL Normal 77.0-99.0 [facility] Comment on above: Performed By: #### L [id number] ####Flavor Room Worker: VELMA VALADEZ ([id number])[facility] ([facility])[address] [place] [address] Monocytes (Bld) [#/Vol] 0.8 10*3/uL Normal 0.0-0.9 [facility] Comment on above: Performed By: #### L [id number] ####Flavor Room Worker: VELMA VALADEZ ([id number])[facility] ([facility])[address] [place] [address] Monocytes/100 WBC (Bld) 10.2 % Normal 5.0-13.0 [facility] Comment on above: Performed By: #### L [id number] ####Flavor Room Worker: VELMA VALADEZ ([id number])[facility] ([facility])[address] [place] [address] NEUTROPHILS ABSOLUTE 4.8 10*3/uL Normal 1.8-7.5 [facility] Comment on above: Performed By: #### L [id number] ####Flavor Room Worker: VELMA VALADEZ ([id number])[facility] ([facility])[address] [place] [address] Neutrophils/100 WBC (Bld) 64.7 % Normal 38.0-82.0 [facility] Comment on above: Performed By: #### L [id number] ####Flavor Room Worker: VELMA VALADEZ ([id number])[facility] ([facility])[address] [place] [address] NRBC 0.0 /100 WBCs Normal 0.0-2.0 [facility] Comment on above: Performed By: #### L [id number] ####Flavor Room Worker: VELMA VALADEZ ([id number])[facility])[address] [place] [address] Platelet mean volume (Bld) [Entitic vol] 10.1 fL Normal 9.0-12.7 [facility] Comment on above: Performed By: #### L [id number] ####Flavor Room Worker: VELMA VALADEZ ([id number])[facility] ([facility])[address] [place] [address] Platelets (Bld) [#/Vol] 223 10*3/uL Normal 140-[address] [facility] Comment on above: Performed By: #### L [id number] ####Flavor Room Worker: VELMA VALADEZ ([id number])[facility] ([facility])[address] [place] [address] RBC (Bld) [#/Vol] 2.85 10*6/uL Low 3.80-5.[address] [facility] Comment on above: Performed By: #### L [id number] ####Flavor Room Worker: VELMA VALADEZ ([id number])[facility] ([facility])[address] [place] [address] WBC (Bld) [#/Vol] 7.5 10*3/uL Normal 3.6-10.[address] [facility] Comment on above: Performed By: #### L [id number] ####Flavor Room Worker: VELMA VALADEZ ([id number])[facility] ([facility])[address] [place] [address] IDNon 04-08-2024 IDN Progressing Normal [facility] Laboratory - Coagulationon 0 04-08-2024 PT Coag (Bld) [Time] 11.2 s 9.0 - 1 2.0 s [facility] No Panel Informationon 04-08 [facility] PROTHROMBIN TIMEon INR Coag (PPP) [Relative time] 1.0 {INR} Normal 0.9-1.[address] [facility] Comment on above: Result Comment: Timothy [...] Myocardial Infarction Performed By: #### L [id number], [id number] ####Flavor Room Worker: VELMA VALADEZ ([id number])[facility] ([facility])[address] [place] [address] PT Coag (PPP) [Time] 11.2 s Normal 9.0-12.0 [facility] Comment on above: Performed By: #### L [id number], [id number] ####Flavor Room Worker: VELMA VALADEZ ([id number])[facility] ([facility])[address] [place] [address] PT Coag (Bld) [Time]on 04-08 INR Coag (PPP) [Relative time] 1.0 {INR} 0.9 - 1.1 [facility] Comment on above: Recommended Anticoag ulant [...] Interpretation and review of laboratory results Normal [facility] Progress Noteon 04-08-2024 Progress Note Normal [facility] Progress Note Normal [facility] aPTT Coag (Bld) [Time]on aPTT Coag (PPP) [Time] 51.5 s High 20.0 - 30.5 s [facility] Interpretation and review of laboratory results Abnormal [facility] NOTE: The therapeuti c time for Heparin anticoagulation, based on Xa activity inhibition, is an APTT of 46-80 seconds. [facility] aPTT Coag (PPP) [Time] 59.8 s High 20.0 - 30.5 s [facility] Interpretation and review of laboratory results Abnormal [facility] NOTE: The therapeuti c time for Heparin anticoagulation, based on Xa activity inhibition, is an APTT of 46-80 seconds. [facility] aPTT Coag (PPP) [Time] 41.4 s High 20.0 - 30.5 s [facility] Interpretation and review of laboratory results Abnormal [facility] NOTE: The therapeuti c time for Heparin anticoagulation, based on Xa activity inhibition, is an APTT of 46-80 seconds. [facility] APTTon 04-07-2024 aPTT Coag (Bld) [Time] 54.7 s High 20.0-30.5 [facility] Comment on above: Result Comment: BUBBA Garcia COMMENTS:NOTE: The therapeutic time for Heparin anticoagulation, based on Xa activity inhibition, is an APTT of 46-80 seconds. Performed By: #### L [id number] ####Flavor Room Worker: VELMA VALADEZ ([id number])[facility])[address] [place] [address] aPTT Coag (Bld) [Time] 77.7 s High 20.0-30.5 [facility] Comment on above: Result Comment: BUBBA Garcia COMMENTS:NOTE: The therapeutic time for Heparin anticoagulation, based on Xa activity inhibition, is an APTT of 46-80 seconds. Performed By: #### L [id number], [id number] ####Flavor Room Worker: VELMA VALADEZ ([id number])[facility])[address] [place] [address] BASIC METABOLIC PANELon 03-19 Anion gap [Moles/Vol] 4 mmol/L Normal 3-13 [facility] Comment on above: Performed By: #### L [id number] ####Flavor Room Worker: VELMA VALADEZ ([id number])[facility] ([facility])[address] [place] [address] Calcium [Mass/Vol] 8.8 mg/dL Normal 8.4-10.[address] [facility] Comment on above: Performed By: #### L [id number] ####Flavor Room Worker: VELMA [id number])[facility])[address] [place] [address] Chloride [Moles/Vol] 115 mmol/L High 98-107 [facility] Comment on above: Performed By: #### L [id number] ####Flavor Room Worker: VELMA [id number])[facility] [place] [address] [place] CO2 [Moles/Vol] 17 mmol/L Low 22-30 [facility] Comment on above: Performed By: #### L [id number] ####Flavor Room Worker: VELMA VALADEZ ([id number])[facility] ([facility])[address] [place] [address] Creatinine [Mass/Vol] 0.90 mg/dL Normal 0.52-1.04 [facility] Comment on above: Performed By: #### L [id number] ####Flavor Room Worker: VELMA VALADEZ ([id number])[facility])[address] [place] [address] GLOMERULAR FILTRATION RATE ML/MIN/1.73 SQ M.PREDICTED 63.2 mL/min/1.73m*2 Normal >60.[address] [facility] Comment on above: Result Comment: Calc ulation based on the Chronic Kidney Disease Epidemiology Collaboration (CKD-EPI) equation refit without adjustment for race Performed By: #### L [id number] ####Flavor Room Worker: VELMA VALADEZ ([id number])[facility] ([facility])[address] [place] [address] Glucose [Mass/Vol] 139 mg/dL High 70-[address] [facility] Comment on above: Performed By: #### L [id number] ####Flavor Room Worker: VELMA VALADEZ ([id number])[facility] ([facility])[address] [place] [address] [place] Potassium [Moles/Vol] 4.7 mmol/L Normal 3.5-5.1 [facility] Comment on above: Performed By: #### L [id number] ####Flavor Room Worker: VELMA VALADEZ ([id number])[facility])[address] [place] [address] Sodium [Moles/Vol] 136 mmol/L Normal 135-[address] [facility] Comment on above: Performed By: #### L [id number] ####Flavor Room Worker: VELMA VALADEZ ([id number])[facility] ([facility])[address] [place] [address] Urea nitrogen [Mass/Vol] 16 mg/dL Normal 7-17 [facility] Comment on above: Performed By: #### L [id number] ####Flavor Room Worker: VELMA VALADEZ ([id number])[facility] ([facility])[address] [place] [address] Basic metabolic 1998 panelon 04-07-2024 Anion gap [Moles/Vol] 4 mmol/L 3 - 13 mmol/L [facility] Calcium [Mass/Vol] 8.8 mg/dL 8.4 - 10. 4 mg/dL [facility] Chloride [Moles/Vol] 115 mmol/L High 98 - 10 7 mmol/L [facility] CO2 [Moles/Vol] 17 mmol/L Low 22 - 30 mmol/L [facility] Creatinine [Mass/Vol] 0.90 mg/dL 0.52 - 1.04 mg/dL [facility] GFR/1.73 sq M.predicted (S/P/Bld) [Vol rate/Area] 63.2 mL/min - PINF [facility] Comment on above: Calculation based on the Chronic Kidney Disease Epidemiology Collaboration (CKD-EPI) equation refit without adjustment for race Glucose [Mass/Vol] 139 mg/dL High 70 - 100 mg/dL [facility] Interpretation and review of laboratory results Abnormal [facility] Potassium [Moles/Vol] 4.7 mmol/L 3.5 - 5.1 mmol/L [facility] Sodium [Moles/Vol] 136 mmol/L 135 - 145 mmol/L [facility] Urea nitrogen [Mass/Vol] 16 mg/dL 7 - 17 mg/dL [facility] CBC W Auto Differential pane l (Bld)on 04-07-2024 Basophils (Bld) [#/Vol] 0.0 10*3/uL 0.0 - 0.2 10*3/uL [facility] Basophils/100 WBC (Bld) 0.2 % 0.0 - 2.0 % [facility] Eosinophils (Bld) [#/Vol] 0.0 10*3/uL 0.0 - 0.5 10*3/uL [facility] Eosinophils/100 WBC (Bld) 0.0 % 0.0 - 6.0 % [facility] Erythrocyte distribution width (RBC) [Ratio] 14.3 % 11.5 - 15.0 % [facility] Hematocrit (Bld) [Volume fraction] 27.0 % Low 35.0 - 47.0 % [facility] Hemoglobin (Bld) [Mass/Vol] 8.6 g/dL Low 11.7 - 16.0 g/dL [facility] Immature granulocytes (Bld) [#/Vol] 0.0 10*3/uL NINF - 0.1 10*3/uL [facility] Immature granulocytes/100 WBC (Bld) 0.5 % 0.0 - 2.0 % [facility] Interpretation and review of laboratory results Abnormal [facility] Lymphocytes (Bld) [#/Vol] 0.8 10*3/uL Low 1.0 - 4.3 10*3/uL [facility] Lymphocytes/100 WBC (Bld) 19.2 % 15.0 - 45.0 % [facility] MCH (RBC) [Entitic mass] 30.1 pg 26.0 - 34.0 pg [facility] MCHC (RBC) [Mass/Vol] 31.9 % 30.5 - 36.0 % [facility] MCV (RBC) [Entitic vol] 94.4 fL 77.0 - 99.0 fL [facility] Monocytes (Bld) [#/Vol] 0.3 10*3/uL 0.0 - 0.9 10*3/uL [facility] Monocytes/100 WBC (Bld) 7.5 % 5.0 - 13.0 % [facility] Neutrophils (Bld) [#/Vol] 2.9 10*3/uL 1.8 - 7.5 10*3/uL [facility] Neutrophils/100 WBC (Bld) 72.6 % 38.0 - 82.0 % [facility] Nucleated RBC/100 WBC (Bld) [Ratio] 0.0 % [facility] Platelet mean volume (Bld) [Entitic vol] 10.5 fL 9.0 - 12.7 fL [facility] Platelets (Bld) [#/Vol] 202 10*3/uL 140 - 440 10*3/uL [facility] RBC (Bld) [#/Vol] 2.86 10*6/uL Low 3.80 - 5.2 0 10*6/uL [facility] WBC (Bld) [#/Vol] 4.0 10*3/uL 3.6 - 10.7 10*3/uL [facility] CBC WITH AUTO DIFFERENTIALon 04-07-2024 Basophils (Bld) [#/Vol] 0.0 10*3/uL Normal 0.0-0.2 [facility] Comment on above: Performed By: #### L [id number] ####Flavor Room Worker: VELMA VALADEZ ([id number])[facility])[address] [place] [address] Basophils/100 WBC (Bld) 0.2 % Normal 0.0-2.0 [facility] Comment on above: Performed By: #### L [id number] ####Flavor Room Worker: VELMA VALADEZ ([id number])[facility])[address] [place] [address] Eosinophils (Bld) [#/Vol] 0.0 10*3/uL Normal 0.0-0.5 [facility] Comment on above: Performed By: #### L [id number] ####Flavor Room Worker: VELMA VALADEZ ([id number])[facility])[address] [place] [address] Eosinophils/100 WBC (Bld) 0.0 % Normal 0.0-6.0 [facility] Comment on above: Performed By: #### L [id number] ####Flavor Room Worker: VELMA VALADEZ ([id number])[facility])[address] [place] [address] Erythrocyte distribution width (RBC) [Ratio] 14.3 % Normal 11.5-15.0 [facility] Comment on above: Performed By: #### L [id number] ####Flavor Room Worker: VELMA [id number])[facility])[address] [place] [address] Hematocrit (Bld) [Volume fraction] 27.0 % Low 35.0-47.0 [facility] Comment on above: Performed By: #### L [id number] ####Flavor Room Worker: VELMA [id number])[facility])[address] [place] [address] Hemoglobin (Bld) [Mass/Vol] 8.6 g/dL Low 11.7-16.0 [facility] Comment on above: Performed By: #### L [id number] ####Flavor Room Worker: VELMA VALADEZ ([id number])[facility])[address] [place] [address] IMMATURE GRANS % 0.5 % Normal 0.0-2.0 [facility] Comment on above: Performed By: #### L [id number] ####Flavor Room Worker: VELMA VALADEZ ([id number])[facility])[address] [place] [address] IMMATURE GRANS ABSOLUTE 0.0 10*3/uL Normal <0.1 [facility] Comment on above: Performed By: #### L [id number] ####Flavor Room Worker: VELMA VALADEZ ([id number])[facility])[address] [place] [address] Lymphocytes (Bld) [#/Vol] 0.8 10*3/uL Low 1.0-4.3 [facility] Comment on above: Performed By: #### L [id number] ####Flavor Room Worker: VELMA VALADEZ ([phone])[address] Lymphocytes/100 WBC (Bld) 19.2 % Normal 15.0-45.0 [facility] Comment on above: Performed By: #### L [id number] ####Flavor Room Worker: VELMA VALADEZ ([id number])[facility])[address] [place] [address] MCH (RBC) [Entitic mass] 30.1 pg Normal 26.0-34.0 [facility] Comment on above: Performed By: #### L [id number] ####Flavor Room Worker: VELMA VALADEZ ([id number])[facility])[address] [place] [address] MCHC 31.9 % Normal 30.5-36.0 [facility] Comment on above: Performed By: #### L [id number] ####Flavor Room Worker: VELMA VALADEZ ([id number])[facility])[address] [place] [address] MCV (RBC) [Entitic vol] 94.4 fL Normal 77.0-99.0 [facility] Comment on above: Performed By: #### L [id number] ####Flavor Room Worker: VELMA VALADEZ ([id number])[facility] ([facility])[address] [place] [address] Monocytes (Bld) [#/Vol] 0.3 10*3/uL Normal 0.0-0.9 [facility] Comment on above: Performed By: #### L [id number] ####Flavor Room Worker: VELMA VALADEZ ([id number])[facility])[address] [place] [address] Monocytes/100 WBC (Bld) 7.5 % Normal 5.0-13.0 [facility] Comment on above: Performed By: #### L [id number] ####Flavor Room Worker: VELMA VALADEZ ([id number])[facility])[address] [place] [address] NEUTROPHILS ABSOLUTE 2.9 10*3/uL Normal 1.8-7.5 [facility] Comment on above: Performed By: #### L [id number] ####Flavor Room Worker: VELMA VALADEZ ([id number])[facility])[address] [place] [address] Neutrophils/100 WBC (Bld) 72.6 % Normal 38.0-82.0 [facility] Comment on above: Performed By: #### L [id number] ####Flavor Room Worker: VELMA VALADEZ ([id number])[facility])[address] [place] [address] NRBC 0.0 /100 WBCs Normal 0.0-2.0 [facility] Comment on above: Performed By: #### L [id number] ####Flavor Room Worker: VELMA VALADEZ ([id number])[facility] ([facility])[address] [place] [address] Platelet mean volume (Bld) [Entitic vol] 10.5 fL Normal 9.0-12.[address] [facility] Comment on above: Performed By: #### L [id number] ####Flavor Room Worker: VELMA VALADEZ ([id number])[facility] [facility] ([facility])[address] [place] [address] Platelets (Bld) [#/Vol] 202 10*3/uL Normal 140-[address] [facility] Comment on above: Performed By: #### L [id number] ####Flavor Room Worker: VELMA VALADEZ ([id number])[facility] ([facility])[address] [place] [address] RBC (Bld) [#/Vol] 2.86 10*6/uL Low 3.80-5.[address] [facility] Comment on above: Performed By: #### L [id number] ####Flavor Room Worker: VELMA VALADEZ ([id number])[facility])[address] [place] [address] WBC (Bld) [#/Vol] 4.0 10*3/uL Normal 3.6-10.[address] [facility] Comment on above: Performed By: #### L [id number] ####Flavor Room Worker: VELMA VALADEZ ([id number])[facility] ([facility])[address] [place] [address] IDNon 04-07-2024 IDN Normal [facility] Laboratory - Coagulationon 0 04-07-2024 PT Coag (Bld) [Time] 11.1 s 9.0 - 1 2.0 s [facility] No Panel Informationon 04-07 [facility] Nursing Noteon 04-07-2024 Nursing Note NO changes to hepari n infusion at this time. Normal [facility] PROTHROMBIN TIMEon INR Coag (PPP) [Relative time] 1.0 {INR} Normal 0.9-1.[address] [facility] Comment on above: Result Comment: Timothy [...] Myocardial Infarction Performed By: #### Weston [id number], [id number] ####Flavor Room Worker: VELMA VALADEZ ([id number])[address] PT Coag (PPP) [Time] 11.1 s Normal 9.0-12.0 [facility] Comment on above: Performed By: #### Weston AB325, [id number] ####Flavor Room Worker: VELMA VALADEZ ([id number])[facility] [employer] PT Coag (Bld) [Time]on 04-07 INR Coag (PPP) [Relative time] 1.0 {INR} 0.9 - 1.1 [facility] Comment on above: Recommended Anticoag ulant [...] Interpretation and review of laboratory results Normal [facility] Progress Noteon 04-07-2024 Progress Note Normal [facility] Progress Note Normal [facility] Progress Note Normal [facility] aPTT Coag (Bld) [Time]on aPTT Coag (PPP) [Time] 54.7 s High 20.0 - 30.5 s [facility] Interpretation and review of laboratory results Abnormal [facility] NOTE: The therapeuti c time for Heparin anticoagulation, based on Xa activity inhibition, is an APTT of 46-80 seconds. [facility] aPTT Coag (PPP) [Time] 77.7 s High 20.0 - 30.5 s [facility] Interpretation and review of laboratory results Abnormal [facility] NOTE: The therapeuti c time for Heparin anticoagulation, based on Xa activity inhibition, is an APTT of 46-80 seconds. [facility] [id number] 04-06-2024 [id number] Normal [facility] APTTon 04-06-2024 aPTT Coag (Bld) [Time] 43.3 s High 20.0-30.5 [facility] Comment on above: Result Comment: BUBBA Garcia COMMENTS:NOTE: The therapeutic time for Heparin anticoagulation, based on Xa activity inhibition, is an APTT of 46-80 seconds. Performed By: #### L [id number] ####Flavor Room Worker: VELMA VALADEZ ([id number])[facility] ([facility])[address] [place] [address] aPTT Coag (Bld) [Time] 97.6 s High 20.0-30.5 [facility] Comment on above: Result Comment: BUBBA Garcia COMMENTS:NOTE: The therapeutic time for Heparin anticoagulation, based on Xa activity inhibition, is an APTT of 46-80 seconds. Performed By: #### L [id number] ####Flavor Room Worker: VELMA VALADEZ ([id number])[facility] ([facility])[address] [place] [address] Anesthesia Noteon 04-06-2024 Anesthesia Note Normal [facility] Anesthesia Note Normal [facility] BASIC METABOLIC PANELon 03-19 Anion gap [Moles/Vol] 4 mmol/L Normal 3-13 [facility] Comment on above: Performed By: #### L AB15 ####Flavor Room Worker: VELMA VALADEZ ([id number])[facility] ([facility])[address] [place] [address] Calcium [Mass/Vol] 8.9 mg/dL Normal 8.4-10.[address] [facility] Comment on above: Performed By: #### L AB15 ####Flavor Room Worker: VELMA VALADEZ ([id number])[facility] ([facility])[address] [place] [address] Chloride [Moles/Vol] 114 mmol/L High 98-107 [facility] Comment on above: Performed By: #### L AB15 ####Flavor Room Worker: VELMA VALADEZ ([id number])[facility])[address] [place] [address] CO2 [Moles/Vol] 18 mmol/L Low 22-30 [facility] Comment on above: Performed By: #### L AB15 ####Flavor Room Worker: VELMA VALADEZ ([id number])[facility])[address] [place] [address] Creatinine [Mass/Vol] 0.96 mg/dL Normal 0.52-1.04 [facility] Comment on above: Performed By: #### L AB15 ####Flavor Room Worker: VELMA VALADEZ ([id number])[facility])[address] [place] [address] GLOMERULAR FILTRATION RATE ML/MIN/1.73 SQ M.PREDICTED 58.5 mL/min/1.73m*2 Low >60.[address] [facility] Comment on above: Result Comment: Calc ulation based on the Chronic Kidney Disease Epidemiology Collaboration (CKD-EPI) equation refit without adjustment for race Performed By: #### L AB15 ####Flavor Room Worker: VELMA VALADEZ ([id number])[facility])[address] [place] [address] Glucose [Mass/Vol] 97 mg/dL Normal 70-[address] [facility] Comment on above: Performed By: #### L AB15 ####Flavor Room Worker: VELMA VALADEZ ([id number])[facility])[address] [place] [address] Potassium [Moles/Vol] 4.6 mmol/L Normal 3.5-5.1 [facility] Comment on above: Performed By: #### L AB15 ####Flavor Room Worker: VELMA VALADEZ ([id number])[facility] [place] [address] Sodium [Moles/Vol] 135 mmol/L Normal 135-[address] [facility] Comment on above: Performed By: #### L AB15 ####Flavor Room Worker: VELMA VALADEZ ([id number])[facility] ([facility])[address] [place] [address] Urea nitrogen [Mass/Vol] 17 mg/dL Normal 7-[address] [facility] Comment on above: Performed By: #### L AB15 ####Flavor Room Worker: VELMA VALADEZ ([id number])[facility] ([facility])[address] [place] [address] BLOOD TYPE AND SCREEN GELon 04-06-2024 ABO GROUPING AB Normal [facility] Comment on above: Performed By: #### L [id number] ####Flavor Room Worker: VELMA VALADEZ ([id number])[facility] ([facility])[address] [place] [address] RH TYPE IN BLOOD Positive Normal [facility] Comment on above: Performed By: #### L [id number] ####Flavor Room Worker: VELMA VALADEZ ([id number])[facility] ([facility])[address] [place] [address] Basic metabolic 1998 panelon 04-06-2024 Anion gap [Moles/Vol] 4 mmol/L 3 - 13 mmol/L [facility] Calcium [Mass/Vol] 8.9 mg/dL 8.4 - 10. 4 mg/dL [facility] Chloride [Moles/Vol] 114 mmol/L High 98 - 10 7 mmol/L [facility] CO2 [Moles/Vol] 18 mmol/L Low 22 - 30 mmol/L [facility] Creatinine [Mass/Vol] 0.96 mg/dL 0.52 - 1.04 mg/dL [facility] GFR/1.73 sq M.predicted (S/P/Bld) [Vol rate/Area] 58.5 mL/min Low - PINF [facility] Comment on above: Calculation based on the Chronic Kidney Disease Epidemiology Collaboration (CKD-EPI) equation refit without adjustment for race Glucose [Mass/Vol] 97 mg/dL 70 - 100 mg/dL [facility] Interpretation and review of laboratory results Abnormal [facility] Potassium [Moles/Vol] 4.6 mmol/L 3.5 - 5.1 mmol/L [facility] Sodium [Moles/Vol] 135 mmol/L 135 - 145 mmol/L [facility] Urea nitrogen [Mass/Vol] 17 mg/dL 7 - 17 mg/dL [facility] Blood type and Crossmatch pa juan (Bld)on 04-06-2024 ABO group Nom (Bld) AB [facility] Blood group antibody screen GEL Ql Negative [facility] D Ag Ql (RBC) Positive [facility] CARECOORDon 04-06-2024 CARECOORD [address] [facility] CARECOWOODMAN Normal [facility] CBC W Auto Differential pane l (Bld)on 04-06-2024 Basophils (Bld) [#/Vol] 0.1 10*3/uL 0.0 - 0.2 10*3/uL [facility] Basophils/100 WBC (Bld) 1.1 % 0.0 - 2.0 % [facility] Eosinophils (Bld) [#/Vol] 0.1 10*3/uL 0.0 - 0.5 10*3/uL [facility] Eosinophils/100 WBC (Bld) 2.7 % 0.0 - 6.0 % [facility] Erythrocyte distribution width (RBC) [Ratio] 14.3 % 11.5 - 15.0 % [facility] Hematocrit (Bld) [Volume fraction] 29.8 % Low 35.0 - 47.0 % [facility] Hemoglobin (Bld) [Mass/Vol] 9.7 g/dL Low 11.7 - 16.0 g/dL [facility] Immature granulocytes (Bld) [#/Vol] 0.0 10*3/uL NINF - 0.1 10*3/uL [facility] Immature granulocytes/100 WBC (Bld) 0.2 % 0.0 - 2.0 % [facility] Interpretation and review of laboratory results Abnormal [facility] Lymphocytes (Bld) [#/Vol] 1.5 10*3/uL 1.0 - 4.3 10*3/uL [facility] Lymphocytes/100 WBC (Bld) 33.0 % 15.0 - 45.0 % [facility] MCH (RBC) [Entitic mass] 30.3 pg 26.0 - 34.0 pg [facility] MCHC (RBC) [Mass/Vol] 32.6 % 30.5 - 36.0 % [facility] MCV (RBC) [Entitic vol] 93.1 fL 77.0 - 99.0 fL [facility] Monocytes (Bld) [#/Vol] 0.5 10*3/uL 0.0 - 0.9 10*3/uL [facility] Monocytes/100 WBC (Bld) 10.5 % 5.0 - 13.0 % [facility] Neutrophils (Bld) [#/Vol] 2.4 10*3/uL 1.8 - 7.5 10*3/uL [facility] Neutrophils/100 WBC (Bld) 52.5 % 38.0 - 82.0 % [facility] Nucleated RBC/100 WBC (Bld) [Ratio] 0.0 % [facility] Platelet mean volume (Bld) [Entitic vol] 10.4 fL 9.0 - 12.7 fL [facility] Platelets (Bld) [#/Vol] 207 10*3/uL 140 - 440 10*3/uL [facility] RBC (Bld) [#/Vol] 3.20 10*6/uL Low 3.80 - 5.2 0 10*6/uL [facility] WBC (Bld) [#/Vol] 4.5 10*3/uL 3.6 - 10.7 10*3/uL [facility] CBC WITH AUTO DIFFERENTIALon 04-06-2024 Basophils (Bld) [#/Vol] 0.1 10*3/uL Normal 0.0-0.2 [facility] Comment on above: Performed By: #### L [id number] ####Flavor Room Worker: VELMA VALADEZ ([id number])[address] Basophils/100 WBC (Bld) 1.1 % Normal 0.0-2.0 [facility] Comment on above: Performed By: #### L [id number] ####Flavor Room Worker: VELMA VALADEZ ([id number])[facility] Eosinophils (Bld) [#/Vol] 0.1 10*3/uL Normal 0.0-0.5 [facility] Comment on above: Performed By: #### L [id number] ####Flavor Room Worker: VELMA VALADEZ ([id number])[facility])[address] [place] [address] Eosinophils/100 WBC (Bld) 2.7 % Normal 0.0-6.0 [facility] Comment on above: Performed By: #### L [id number] ####Flavor Room Worker: VELMA VALADEZ ([id number])[address] Erythrocyte distribution width (RBC) [Ratio] 14.3 % Normal 11.5-15.0 [facility] Comment on above: Performed By: #### L [id number] ####Flavor Room Worker: VELMA VALADEZ ([id number])[facility])[address] [place] [address] Hematocrit (Bld) [Volume fraction] 29.8 % Low 35.0-47.0 [facility] Comment on above: Performed By: #### L [id number] ####Flavor Room Worker: VELMA VALADEZ ([id number])[address] Hemoglobin (Bld) [Mass/Vol] 9.7 g/dL Low 11.7-16.0 [facility] Comment on above: Performed By: #### L [id number] ####Flavor Room Worker: VELMA VALADEZ ([id number])[facility])[address] [place] [address] IMMATURE GRANS % 0.2 % Normal 0.0-2.0 [facility] Comment on above: Performed By: #### L [id number] ####Flavor Room Worker: VELMA VALADEZ ([id number])[address] IMMATURE GRANS ABSOLUTE 0.0 10*3/uL Normal <0.1 [facility] Comment on above: Performed By: #### L [id number] ####Flavor Room Worker: VELMA VALADEZ ([id number])[facility])[address] [place] [address] Lymphocytes (Bld) [#/Vol] 1.5 10*3/uL Normal 1.0-4.3 [facility] Comment on above: Performed By: #### L [id number] ####Flavor Room Worker: VELMA VALADEZ ([id number])[facility])[address] [place] [address] Lymphocytes/100 WBC (Bld) 33.0 % Normal 15.0-45.0 [facility] Comment on above: Performed By: #### L [id number] ####Flavor Room Worker: VELMA VALADEZ ([id number])[facility])[address] [place] [address] MCH (RBC) [Entitic mass] 30.3 pg Normal 26.0-34.0 [facility] Comment on above: Performed By: #### L [id number] ####Flavor Room Worker: VELMA VALADEZ ([id number])[facility])[address] [place] [address] MCHC 32.6 % Normal 30.5-36.0 [facility] Comment on above: Performed By: #### L [id number] ####Flavor Room Worker: VELMA VALADEZ ([id number])[facility])[address] [place] [address] MCV (RBC) [Entitic vol] 93.1 fL Normal 77.0-99.0 [facility] Comment on above: Performed By: #### L [id number] ####Flavor Room Worker: VELMA VALADEZ ([id number])[facility])[address] [place] [address] Monocytes (Bld) [#/Vol] 0.5 10*3/uL Normal 0.0-0.9 [facility] Comment on above: Performed By: #### L [id number] ####Flavor Room Worker: VELMA VALADEZ ([id number])[facility] ([facility])[address] [place] [address] Monocytes/100 WBC (Bld) 10.5 % Normal 5.0-13.0 [facility] Comment on above: Performed By: #### L [id number] ####Flavor Room Worker: VELMA VALADEZ ([id number])[facility] ([facility])[address] [place] [address] NEUTROPHILS ABSOLUTE 2.4 10*3/uL Normal 1.8-7.5 [facility] Comment on above: Performed By: #### L [id number] ####Flavor Room Worker: VELMA VALADEZ ([id number])[facility] ([facility])[address] [place] [address] Neutrophils/100 WBC (Bld) 52.5 % Normal 38.0-82.[address] [facility] Comment on above: Performed By: #### L [id number] ####Flavor Room Worker: VELMA VALADEZ ([id number])[facility] ([facility])[address] [place] [address] NRBC 0.0 /100 WBCs Normal 0.0-2.0 [facility] Comment on above: Performed By: #### L [id number] ####Flavor Room Worker: VELMA VALADEZ ([id number])[facility] ([facility])[address] [place] [address] Platelet mean volume (Bld) [Entitic vol] 10.4 fL Normal 9.0-12.[address] [facility] Comment on above: Performed By: #### L [id number] ####Flavor Room Worker: VELMA VALADEZ ([id number])[facility] ([facility])[address] [place] [address] [place] Platelets (Bld) [#/Vol] 207 10*3/uL Normal 140-[address] [facility] Comment on above: Performed By: #### L [id number] ####Flavor Room Worker: VELMA VALADEZ ([id number])[facility] ([facility])[address] [place] [address] RBC (Bld) [#/Vol] 3.20 10*6/uL Low 3.80-5.[address] [facility] Comment on above: Performed By: #### L [id number] ####Flavor Room Worker: VELMA VALADEZ ([id number])[facility] ([facility])[address] [place] [address] WBC (Bld) [#/Vol] 4.5 10*3/uL Normal 3.6-10.[address] [facility] Comment on above: Performed By: #### L [id number] ####Flavor Room Worker: VELMA VALADEZ ([id number])[facility] ([facility])[address] [place] [address] No Panel Informationon 04-06 There is no interpretation needed for this exam. IMAGING Nursing Noteon 04-06-2024 Nursing Note Patient report rader d to 4N RN and denies any further questions. Patient resting comfortably and no signs of distress. Per resident patient to lay flat for 2 hours and restart heparin GTT at 1215. Transport notified. Normal [facility] Op Noteon 04-06-2024 Op Note Normal [facility] Progress Noteon 04-06-2024 Progress Note Normal [facility] Progress Note Normal [facility] Progress Note Normal [facility] aPTT Coag (Bld) [Time]on aPTT Coag (PPP) [Time] 43.3 s High 20.0 - 30.5 s [facility] Interpretation and review of laboratory results Abnormal [facility] NOTE: The therapeuti c time for Heparin anticoagulation, based on Xa activity inhibition, is an APTT of 46-80 seconds. [facility] aPTT Coag (PPP) [Time] 97.6 s High 20.0 - 30.5 s [facility] Interpretation and review of laboratory results Abnormal [facility] NOTE: The therapeuti c time for Heparin anticoagulation, based on Xa activity inhibition, is an APTT of 46-80 seconds. [facility] 36on 04-05-2024 36 Surgery: Inpatient R LE venous mechanical thrombectomy Date of surgery: 04/06/24 Pre-testing: inpatient CPT codes: 13852 ICD 10: I82.401 Post-op or OV: Adriane to schedule Reps: Selvin Elaine) notified 04/05/[address] [facility] APTTon 04-05-2024 aPTT Coag (Bld) [Time] 76.6 s High 20.0-30.5 [facility] Comment on above: Result Comment: BUBBA Garcia COMMENTS:NOTE: The therapeutic time for Heparin anticoagulation, based on Xa activity inhibition, is an APTT of 46-80 seconds. Performed By: #### L [id number], [id number] ####Flavor Room Worker: VELMA VALADEZ ([id number])[address] aPTT Coag (Bld) [Time] 69.9 s High 20.0-30.5 [facility] Comment on above: Result Comment: BUBBA Garcia COMMENTS:NOTE: The therapeutic time for Heparin anticoagulation, based on Xa activity inhibition, is an APTT of 46-80 seconds. Performed By: #### L [id number] ####Flavor Room Worker: VELMA VALADEZ ([id number])[address] aPTT Coag (Bld) [Time] 88.8 s High 20.0-30.5 [facility] Comment on above: Result Comment: BUBBA Garcia COMMENTS:NOTE: The therapeutic time for Heparin anticoagulation, based on Xa activity inhibition, is an APTT of 46-80 seconds. Performed By: #### L [id number], [id number] ####Flavor Room Worker: VELMA VALADEZ ([id number])[address] aPTT Coag (Bld) [Time] 109.7 s High 20.0-30.5 [facility] Comment on above: Result Comment: BUBBA Garcia COMMENTS:NOTE: The therapeutic time for Heparin anticoagulation, based on Xa activity inhibition, is an APTT of 46-80 seconds. Performed By: #### L [id number] ####Flavor Room Worker: VELMA VALADEZ ([id number])[facility] ([facility])[address] [place] [address] BASIC METABOLIC PANELon 03-18 Anion gap [Moles/Vol] 3 mmol/L Normal 3-13 [facility] Comment on above: Performed By: #### L AB15 ####Flavor Room Worker: VELMA VALADEZ ([id number])[facility] ([facility] [place] [address] Calcium [Mass/Vol] 8.7 mg/dL Normal 8.4-10.[address] [facility] Comment on above: Performed By: #### L AB15 ####Flavor Room Worker: VELMA VALADEZ ([id number])[facility] ([facility])[address] [place] [address] Chloride [Moles/Vol] 113 mmol/L High 98-107 [facility] Comment on above: Performed By: #### L AB15 ####Flavor Room Worker: VELMA VALADEZ ([id number])[facility] ([facility] [place] [address] [place] CO2 [Moles/Vol] 17 mmol/L Low 22-30 [facility] Comment on above: Performed By: #### L AB15 ####Flavor Room Worker: VELMA VALADEZ ([id number])[facility] ([facility])[address] [place] [address] Creatinine [Mass/Vol] 1.12 mg/dL High 0.52-1.04 [facility] Comment on above: Performed By: #### L AB15 ####Flavor Room Worker: VELMA VALADEZ ([phone])[facility] ([facility] [place] [address] [place] GLOMERULAR FILTRATION RATE ML/MIN/1.73 SQ M.PREDICTED 48.6 mL/min/1.73m*2 Low >60.[address] [facility] Comment on above: Result Comment: Calc ulation based on the Chronic Kidney Disease Epidemiology Collaboration (CKD-EPI) equation refit without adjustment for race Performed By: #### L AB15 ####Flavor Room Worker: VELMA VALADEZ ([id number])[facility] ([facility])[address] [place] [address] Glucose [Mass/Vol] 102 mg/dL High 70-[address] [facility] Comment on above: Performed By: #### L AB15 ####Flavor Room Worker: VELMA VALADEZ ([id number])[facility] ([facility])[address] [place] [address] Potassium [Moles/Vol] 4.8 mmol/L Normal 3.5-5.1 [facility] Comment on above: Performed By: #### L AB15 ####Flavor Room Worker: VELMA VALADEZ ([id number])[facility] ([facility])[address] [place] [address] Sodium [Moles/Vol] 133 mmol/L Low 135-[address] [facility] Comment on above: Performed By: #### L AB15 ####Flavor Room Worker: VELMA VALADEZ ([id number])[facility] ([facility])[address] [place] [address] Urea nitrogen [Mass/Vol] 25 mg/dL High 7-[address] [facility] Comment on above: Performed By: #### L AB15 ####Flavor Room Worker: VELMA VALADEZ ([id number])[facility] ([facility])[address] [place] [address] Basic metabolic 1998 panelon 04-05-2024 Anion gap [Moles/Vol] 3 mmol/L 3 - 13 mmol/L [facility] Calcium [Mass/Vol] 8.7 mg/dL 8.4 - 10. 4 mg/dL [facility] Chloride [Moles/Vol] 113 mmol/L High 98 - 10 7 mmol/L [facility] CO2 [Moles/Vol] 17 mmol/L Low 22 - 30 mmol/L [facility] Creatinine [Mass/Vol] 1.12 mg/dL High 0.52 - 1.04 mg/dL [facility] GFR/1.73 sq M.predicted (S/P/Bld) [Vol rate/Area] 48.6 mL/min Low - PINF [facility] Comment on above: Calculation based on the Chronic Kidney Disease Epidemiology Collaboration (CKD-EPI) equation refit without adjustment for race Glucose [Mass/Vol] 102 mg/dL High 70 - 100 mg/dL [facility] Interpretation and review of laboratory results Abnormal [facility] Potassium [Moles/Vol] 4.8 mmol/L 3.5 - 5.1 mmol/L [facility] Sodium [Moles/Vol] 133 mmol/L Low 135 - 145 mmol/L [facility] Urea nitrogen [Mass/Vol] 25 mg/dL High 7 - 17 mg/dL [facility] CARECOORDon 04-05-2024 CARECOORD Normal [facility] CBC W Auto Differential pane l (Bld)on 04-05-2024 Basophils (Bld) [#/Vol] 0.1 10*3/uL 0.0 - 0.2 10*3/uL [facility] Basophils/100 WBC (Bld) 1.0 % 0.0 - 2.0 % [facility] Eosinophils (Bld) [#/Vol] 0.2 10*3/uL 0.0 - 0.5 10*3/uL [facility] Eosinophils/100 WBC (Bld) 2.9 % 0.0 - 6.0 % [facility] Erythrocyte distribution width (RBC) [Ratio] 14.4 % 11.5 - 15.0 % [facility] Hematocrit (Bld) [Volume fraction] 32.3 % Low 35.0 - 47.0 % [facility] Hemoglobin (Bld) [Mass/Vol] 10.6 g/dL Low 11.7 - 16.0 g/dL [facility] Immature granulocytes (Bld) [#/Vol] 0.0 10*3/uL NINF - 0.1 10*3/uL [facility] Immature granulocytes/100 WBC (Bld) 0.3 % 0.0 - 2.0 % [facility] Interpretation and review of laboratory results Abnormal [facility] Lymphocytes (Bld) [#/Vol] 1.7 10*3/uL 1.0 - 4.3 10*3/uL [facility] Lymphocytes/100 WBC (Bld) 27.5 % 15.0 - 45.0 % [facility] MCH (RBC) [Entitic mass] 30.7 pg 26.0 - 34.0 pg [facility] MCHC (RBC) [Mass/Vol] 32.8 % 30.5 - 36.0 % [facility] MCV (RBC) [Entitic vol] 93.6 fL 77.0 - 99.0 fL [facility] Monocytes (Bld) [#/Vol] 0.6 10*3/uL 0.0 - 0.9 10*3/uL [facility] Monocytes/100 WBC (Bld) 9.0 % 5.0 - 13.0 % [facility] Neutrophils (Bld) [#/Vol] 3.6 10*3/uL 1.8 - 7.5 10*3/uL [facility] Neutrophils/100 WBC (Bld) 59.3 % 38.0 - 82.0 % [facility] Nucleated RBC/100 WBC (Bld) [Ratio] 0.0 % [facility] Platelet mean volume (Bld) [Entitic vol] 10.1 fL 9.0 - 12.7 fL [facility] Platelets (Bld) [#/Vol] 204 10*3/uL 140 - 440 10*3/uL [facility] RBC (Bld) [#/Vol] 3.45 10*6/uL Low 3.80 - 5.2 0 10*6/uL [facility] WBC (Bld) [#/Vol] 6.1 10*3/uL 3.6 - 10.7 10*3/uL [facility] CBC WITH AUTO DIFFERENTIALon 04-05-2024 Basophils (Bld) [#/Vol] 0.1 10*3/uL Normal 0.0-0.2 [facility] Comment on above: Performed By: #### L [id number] ####Flavor Room Worker: VELMA VALADEZ ([id number])[address] Basophils/100 WBC (Bld) 1.0 % Normal 0.0-2.0 [facility] Comment on above: Performed By: #### L [id number] ####Flavor Room Worker: VELMA VALADEZ ([id number])[facility])[address] [place] [address] Eosinophils (Bld) [#/Vol] 0.2 10*3/uL Normal 0.0-0.5 [facility] Comment on above: Performed By: #### L [id number] ####Flavor Room Worker: VELMA VALADEZ ([id number])[facility])[address] [place] [address] Eosinophils/100 WBC (Bld) 2.9 % Normal 0.0-6.0 [facility] Comment on above: Performed By: #### L [id number] ####Flavor Room Worker: VELMA VALADEZ ([id number])[facility])[address] [place] [address] Erythrocyte distribution width (RBC) [Ratio] 14.4 % Normal 11.5-15.0 [facility] Comment on above: Performed By: #### L [id number] ####Flavor Room Worker: VELMA VALADEZ ([id number])[address] Hematocrit (Bld) [Volume fraction] 32.3 % Low 35.0-47.0 [facility] Comment on above: Performed By: #### L [id number] ####Flavor Room Worker: VELMA VALADEZ ([id number])[address] Hemoglobin (Bld) [Mass/Vol] 10.6 g/dL Low 11.7-16.0 [facility] Comment on above: Performed By: #### L [id number] ####Flavor Room Worker: VELMA VALADEZ ([id number])[address] IMMATURE GRANS % 0.3 % Normal 0.0-2.0 [facility] Comment on above: Performed By: #### L [id number] ####Flavor Room Worker: VELMA VALADEZ ([id number])[address] IMMATURE GRANS ABSOLUTE 0.0 10*3/uL Normal <0.1 [facility] Comment on above: Performed By: #### L [id number] ####Flavor Room Worker: VELMA VALADEZ ([id number])[facility] ([facility])[address] [place] [address] Lymphocytes (Bld) [#/Vol] 1.7 10*3/uL Normal 1.0-4.3 [facility] Comment on above: Performed By: #### L [id number] ####Flavor Room Worker: VELMA VALADEZ ([id number])[facility])[address] [place] [address] Lymphocytes/100 WBC (Bld) 27.5 % Normal 15.0-45.0 [facility] Comment on above: Performed By: #### L [id number] ####Flavor Room Worker: VELMA VALADEZ ([id number])[facility])[address] [place] [address] MCH (RBC) [Entitic mass] 30.7 pg Normal 26.0-34.0 [facility] Comment on above: Performed By: #### L [id number] ####Flavor Room Worker: VELMA VALADEZ ([id number])[facility])[address] [place] [address] MCHC 32.8 % Normal 30.5-36.0 [facility] Comment on above: Performed By: #### L [id number] ####Flavor Room Worker: VELMA VALADEZ ([id number])[facility])[address] [place] [address] MCV (RBC) [Entitic vol] 93.6 fL Normal 77.0-99.0 [facility] Comment on above: Performed By: #### L [id number] ####Flavor Room Worker: VELMA VALADEZ ([id number])[facility])[address] [place] [address] Monocytes (Bld) [#/Vol] 0.6 10*3/uL Normal 0.0-0.9 [facility] Comment on above: Performed By: #### L [id number] ####Flavor Room Worker: VELMA VALADEZ ([id number])[facility])[address] [place] [address] Monocytes/100 WBC (Bld) 9.0 % Normal 5.0-13.0 [facility] Comment on above: Performed By: #### L [id number] ####Flavor Room Worker: VELMA VALADEZ ([id number])[facility] ([facility])[address] [place] [address] NEUTROPHILS ABSOLUTE 3.6 10*3/uL Normal 1.8-7.5 [facility] Comment on above: Performed By: #### L [id number] ####Flavor Room Worker: VELMA VALADEZ ([id number])[facility] ([facility])[address] [place] [address] Neutrophils/100 WBC (Bld) 59.3 % Normal 38.0-82.0 [facility] Comment on above: Performed By: #### L [id number] ####Flavor Room Worker: VELMA VALADEZ ([id number])[facility] ([facility])[address] [place] [address] NRBC 0.0 /100 WBCs Normal 0.0-2.0 [facility] Comment on above: Performed By: #### L [id number] ####Flavor Room Worker: VELMA VALADEZ ([id number])[facility] ([facility])[address] [place] [address] Platelet mean volume (Bld) [Entitic vol] 10.1 fL Normal 9.0-12.7 [facility] Comment on above: Performed By: #### L [id number] ####Flavor Room Worker: VELMA VALADEZ ([id number])[facility] ([facility])[address] [place] [address] Platelets (Bld) [#/Vol] 204 10*3/uL Normal 140-440 [facility] Comment on above: Performed By: #### L [id number] ####Flavor Room Worker: VELMA VALADEZ ([id number])[facility] ([facility])[address] [place] [address] RBC (Bld) [#/Vol] 3.45 10*6/uL Low 3.80-5.20 [facility] Comment on above: Performed By: #### L [id number] ####Flavor Room Worker: VELMA VALADEZ ([id number])[facility])[address] [place] [address] WBC (Bld) [#/Vol] 6.1 10*3/uL Normal 3.6-10.[address] [facility] Comment on above: Performed By: #### L [id number] ####Flavor Room Worker: VELMA VALADEZ ([id number])[facility])[address] [place] [address] IDNon 04-05-2024 IDN The patient is Moderately Stable - Low risk of patient condition declining or worsening The patient's goals for the shift include met The clinical goals for the shift include met Normal [facility] Laboratory - Coagulationon 0 04-05-2024 PT Coag (Bld) [Time] 11.4 s 9.0 - 1 2.0 s [facility] PT Coag (Bld) [Time] 11.9 s 9.0 - 1 2.0 s [facility] No Panel Informationon 04-05 [facility] PROTHROMBIN TIMEon INR Coag (PPP) [Relative time] 1.0 {INR} Normal 0.9-1.[address] [facility] Comment on above: Performed By: #### L [id number], [id number] ####Flavor Room Worker: VELMA VALADEZ ([id number])[facility])[address] [place] [address] PT Coag (PPP) [Time] 11.4 s Normal 9.0-12.0 [facility] Comment on above: Performed By: #### L [id number], [id number] ####Flavor Room Worker: VELMA VALADEZ ([id number])[facility])[address] [place] [address] INR Coag (PPP) [Relative time] 1.1 {INR} Normal 0.9-1.[address] [facility] Comment on above: Result Comment: Timothy [...] Myocardial Infarction Performed By: #### [place] [id number], [id number] ####Flavor Room Worker: VELMA VALADEZ ([id number])[facility] ([facility])[address] [place] [address] PT Coag (PPP) [Time] 11.9 s Normal 9.0-12.0 [facility] Comment on above: Performed By: #### Weston [id number], [id number] ####Flavor Room Worker: VELMA VALADEZ ([id number])[facility] ([facility])[address] [place] [address] PT Coag (Bld) [Time]on 04-05 INR Coag (PPP) [Relative time] 1.0 {INR} 0.9 - 1.1 [facility] Interpretation and review of laboratory results Normal [facility] INR Coag (PPP) [Relative time] 1.1 {INR} 0.9 - 1.1 [facility] Comment on above: Recommended Anticoag ulant [...] Interpretation and review of laboratory results Normal [facility] Progress Noteon 04-05-2024 Progress Note Normal [facility] [employer] [facility] Progress Note Nutrition rescreen completed. Chart reviewed. Patient to be monitored and followed by the diet infrastructure technician. FADI aHrmon Normal [facility] Progress Note Normal [facility] Progress Note Normal [facility] aPTT Coag (Bld) [Time]on aPTT Coag (PPP) [Time] 76.6 s High 20.0 - 30.5 s [facility] Interpretation and review of laboratory results Abnormal [facility] NOTE: The therapeuti c time for Heparin anticoagulation, based on Xa activity inhibition, is an APTT of 46-80 seconds. [facility] aPTT Coag (PPP) [Time] 69.9 s High 20.0 - 30.5 s [facility] Interpretation and review of laboratory results Abnormal [facility] NOTE: The therapeuti c time for Heparin anticoagulation, based on Xa activity inhibition, is an APTT of 46-80 seconds. [facility] aPTT Coag (PPP) [Time] 88.8 s High 20.0 - 30.5 s [facility] Interpretation and review of laboratory results Abnormal [facility] NOTE: The therapeuti c time for Heparin anticoagulation, based on Xa activity inhibition, is an APTT of 46-80 seconds. [facility] aPTT Coag (Bld) [Time]Ordere d By: Juni Millard on 04-05-2024 aPTT Coag (PPP) [Time] 109.7 s High 20.0 - 30.5 s [facility] Interpretation and review of laboratory results Abnormal [facility] NOTE: The therapeuti c time for Heparin anticoagulation, based on Xa activity inhibition, is an APTT of 46-80 seconds. [facility] [id number] 04-04-2024 [id number] Normal [facility] [id number] Normal [facility] APTTon 04-04-2024 aPTT Coag (Bld) [Time] 81.8 s High 20.0-30.5 [facility] Comment on above: Result Comment: BUBBA Garcia COMMENTS:NOTE: The therapeutic time for Heparin anticoagulation, based on Xa activity inhibition, is an APTT of 46-80 seconds. Performed By: #### L [id number] ####Flavor Room Worker: VELMA VALADEZ ([id number])[address] aPTT Coag (Bld) [Time] 81.4 s High 20.0-30.5 [facility] Comment on above: Result Comment: BUBBA Garcia COMMENTS:NOTE: The therapeutic time for Heparin anticoagulation, based on Xa activity inhibition, is an APTT of 46-80 seconds. Performed By: #### L [id number] ####Flavor Room Worker: VELMA VALADEZ ([id number])[facility] ([facility])[address] [place] [address] aPTT Coag (Bld) [Time] 132.2 s Critically high 20.0-30. [address] [facility] Comment on above: Result Comment: BUBBA Garcia COMMENTS:NOTE: The therapeutic time for Heparin anticoagulation, based on Xa activity inhibition, is an APTT of 46-80 seconds. Performed By: #### L [id number] ####Flavor Room Worker: VELMA VALADEZ ([id number])[facility] ([facility])[address] [place] [address] BASIC METABOLIC PANELon - Anion gap [Moles/Vol] 8 mmol/L Normal 3-13 [facility] Comment on above: Performed By: #### L AB15 ####Flavor Room Worker: VELMA VALADEZ ([id number])[facility] ([facility])[address] [place] [address] Calcium [Mass/Vol] 9.3 mg/dL Normal 8.4-10.[address] [facility] Comment on above: Performed By: #### L AB15 ####Flavor Room Worker: VELMA VALADEZ ([id number])[facility] ([facility])[address] [place] [address] Chloride [Moles/Vol] 110 mmol/L High 98-107 [facility] Comment on above: Performed By: #### L AB15 ####Flavor Room Worker: VELMA VALADEZ ([id number])[facility] ([facility])[address] [place] [address] CO2 [Moles/Vol] 18 mmol/L Low 22-30 [facility] Comment on above: Performed By: #### L AB15 ####Flavor Room Worker: VELMA VALADEZ ([id number])[facility] ([facility])[address] [place] [address] Creatinine [Mass/Vol] 1.45 mg/dL High 0.52-1.04 [facility] Comment on above: Performed By: #### L AB15 ####Flavor Room Worker: VELMA VALADEZ ([id number])[facility])[address] [place] [address] GLOMERULAR FILTRATION RATE ML/MIN/1.73 SQ M.PREDICTED 35.6 mL/min/1.73m*2 Low >60.[address] [facility] Comment on above: Result Comment: Calc ulation based on the Chronic Kidney Disease Epidemiology Collaboration (CKD-EPI) equation refit without adjustment for race Performed By: #### L AB15 ####Flavor Room Worker: VELMA VALADEZ ([id number])[facility] ([facility])[address] [place] [address] Glucose [Mass/Vol] 100 mg/dL Normal 70-[address] [facility] Comment on above: Performed By: #### L AB15 ####Flavor Room Worker: VELMA VALADEZ ([id number])[facility])[address] [place] [address] Potassium [Moles/Vol] 4.5 mmol/L Normal 3.5-5.1 [facility] Comment on above: Performed By: #### L AB15 ####Flavor Room Worker: VELMA VALADEZ ([id number])[facility] ([facility])[address] [place] [address] Sodium [Moles/Vol] 135 mmol/L Normal 135-[address] [facility] Comment on above: Performed By: #### L AB15 ####Flavor Room Worker: VELMA VALADEZ ([id number])[facility])[address] [place] [address] Urea nitrogen [Mass/Vol] 30 mg/dL High 7-[address] [facility] Comment on above: Performed By: #### L AB15 ####Flavor Room Worker: VELMA VALADEZ ([id number])[facility])[address] [place] [address] Basic metabolic 1998 panelOr dered By: Marielle Garcia on 04-04-2024 Anion gap [Moles/Vol] 8 mmol/L 3 - 13 mmol/L [facility] Calcium [Mass/Vol] 9.3 mg/dL 8.4 - 10. 4 mg/dL [facility] Chloride [Moles/Vol] 110 mmol/L High 98 - 10 7 mmol/L [facility] CO2 [Moles/Vol] 18 mmol/L Low 22 - 30 mmol/L [facility] Creatinine [Mass/Vol] 1.45 mg/dL High 0.52 - 1.04 mg/dL [facility] GFR/1.73 sq M.predicted (S/P/Bld) [Vol rate/Area] 35.6 mL/min Low - PINF [facility] Comment on above: Calculation based on the Chronic Kidney Disease Epidemiology Collaboration (CKD-EPI) equation refit without adjustment for race Glucose [Mass/Vol] 100 mg/dL 70 - 100 mg/dL [facility] Interpretation and review of laboratory results Abnormal [facility] Potassium [Moles/Vol] 4.5 mmol/L 3.5 - 5.1 mmol/L [facility] Sodium [Moles/Vol] 135 mmol/L 135 - 145 mmol/L [facility] Urea nitrogen [Mass/Vol] 30 mg/dL High 7 - 17 mg/dL [facility] CARECOORDon 04-04-2024 CARECOORD Normal [facility] CBC W Auto Differential pane l (Bld)on 04-04-2024 Basophils (Bld) [#/Vol] 0.1 10*3/uL 0.0 - 0.2 10*3/uL [facility] Basophils/100 WBC (Bld) 0.7 % 0.0 - 2.0 % [facility] Eosinophils (Bld) [#/Vol] 0.3 10*3/uL 0.0 - 0.5 10*3/uL [facility] Eosinophils/100 WBC (Bld) 3.2 % 0.0 - 6.0 % [facility] Erythrocyte distribution width (RBC) [Ratio] 14.2 % 11.5 - 15.0 % [facility] Hematocrit (Bld) [Volume fraction] 38.8 % 35.0 - 47.0 % [facility] Hemoglobin (Bld) [Mass/Vol] 12.5 g/dL 11.7 - 16.0 g/dL [facility] Immature granulocytes (Bld) [#/Vol] 0.1 10*3/uL High NINF - 0.1 10*3/uL [facility] Immature granulocytes/100 WBC (Bld) 0.6 % 0.0 - 2.0 % [facility] Interpretation and review of laboratory results Abnormal [facility] Lymphocytes (Bld) [#/Vol] 1.6 10*3/uL 1.0 - 4.3 10*3/uL [facility] Lymphocytes/100 WBC (Bld) 19.2 % 15.0 - 45.0 % [facility] MCH (RBC) [Entitic mass] 29.7 pg 26.0 - 34.0 pg [facility] MCHC (RBC) [Mass/Vol] 32.2 % 30.5 - 36.0 % [facility] MCV (RBC) [Entitic vol] 92.2 fL 77.0 - 99.0 fL [facility] Monocytes (Bld) [#/Vol] 0.8 10*3/uL 0.0 - 0.9 10*3/uL [facility] Monocytes/100 WBC (Bld) 9.9 % 5.0 - 13.0 % [facility] Neutrophils (Bld) [#/Vol] 5.3 10*3/uL 1.8 - 7.5 10*3/uL [facility] Neutrophils/100 WBC (Bld) 66.4 % 38.0 - 82.0 % [facility] Nucleated RBC/100 WBC (Bld) [Ratio] 0.0 % [facility] Platelet mean volume (Bld) [Entitic vol] 10.0 fL 9.0 - 12.7 fL [facility] Platelets (Bld) [#/Vol] 266 10*3/uL 140 - 440 10*3/uL [facility] RBC (Bld) [#/Vol] 4.21 10*6/uL 3.80 - 5.2 0 10*6/uL [facility] WBC (Bld) [#/Vol] 8.1 10*3/uL 3.6 - 10.7 10*3/uL [facility] CBC WITH AUTO DIFFERENTIALon 04-04-2024 Basophils (Bld) [#/Vol] 0.1 10*3/uL Normal 0.0-0.2 [facility] Comment on above: Performed By: #### L [id number] ####Flavor Room Worker: VELMA [id number])[facility] ([facility])[address] [place] [address] Basophils/100 WBC (Bld) 0.7 % Normal 0.0-2.0 [facility] Comment on above: Performed By: #### L [id number] ####Flavor Room Worker: VELMA VALADEZ ([id number])[facility])[address] [place] [address] Eosinophils (Bld) [#/Vol] 0.3 10*3/uL Normal 0.0-0.5 [facility] Comment on above: Performed By: #### L [id number] ####Flavor Room Worker: VELMA VALADEZ ([id number])[facility])[address] [place] [address] Eosinophils/100 WBC (Bld) 3.2 % Normal 0.0-6.0 [facility] Comment on above: Performed By: #### L [id number] ####Flavor Room Worker: VELMA VALADEZ ([phone])[facility] ([facility])[address] [place] [address] Erythrocyte distribution width (RBC) [Ratio] 14.2 % Normal 11.5-15.0 [facility] Comment on above: Performed By: #### L [id number] ####Flavor Room Worker: VELMA VALADEZ ([id number])[address] Hematocrit (Bld) [Volume fraction] 38.8 % Normal 35.0-47.0 [facility] Comment on above: Performed By: #### L [id number] ####Flavor Room Worker: VELMA VALADEZ ([id number])[facility])[address] [place] [address] Hemoglobin (Bld) [Mass/Vol] 12.5 g/dL Normal 11.7-16.0 [facility] Comment on above: Performed By: #### L [id number] ####Flavor Room Worker: VELMA VALADEZ ([id number])[facility])[address] [place] [address] IMMATURE GRANS % 0.6 % Normal 0.0-2.0 [facility] Comment on above: Performed By: #### L [id number] ####Flavor Room Worker: VELMA VALADEZ ([id number])[facility])[address] [place] [address] IMMATURE GRANS ABSOLUTE 0.1 10*3/uL High <0.1 [facility] Comment on above: Performed By: #### L [id number] ####Flavor Room Worker: VELMA VALADEZ ([id number])[facility])[address] [place] [address] Lymphocytes (Bld) [#/Vol] 1.6 10*3/uL Normal 1.0-4.3 [facility] Comment on above: Performed By: #### L [id number] ####Flavor Room Worker: VELMA VALADEZ ([id number])[facility])[address] [place] [address] Lymphocytes/100 WBC (Bld) 19.2 % Normal 15.0-45.0 [facility] Comment on above: Performed By: #### L [id number] ####Flavor Room Worker: VELMA VALADEZ ([id number])[facility])[address] [place] [address] MCH (RBC) [Entitic mass] 29.7 pg Normal 26.0-34.0 [facility] Comment on above: Performed By: #### L [id number] ####Flavor Room Worker: VELMA VALADEZ ([id number])[facility])[address] [place] [address] MCHC 32.2 % Normal 30.5-36.0 [facility] Comment on above: Performed By: #### L [id number] ####Flavor Room Worker: VELMA VALADEZ ([id number])[facility])[address] [place] [address] MCV (RBC) [Entitic vol] 92.2 fL Normal 77.0-99.0 [facility] Comment on above: Performed By: #### L [id number] ####Flavor Room Worker: VELMA VALADEZ ([id number])[facility] ([facility])[address] [place] [address] Monocytes (Bld) [#/Vol] 0.8 10*3/uL Normal 0.0-0.9 [facility] Comment on above: Performed By: #### L [id number] ####Flavor Room Worker: VELMA VALADEZ ([id number])[facility] ([facility])[address] [place] [address] Monocytes/100 WBC (Bld) 9.9 % Normal 5.0-13.0 [facility] Comment on above: Performed By: #### L [id number] ####Flavor Room Worker: VELMA VALADEZ ([id number])[facility])[address] [place] [address] NEUTROPHILS ABSOLUTE 5.3 10*3/uL Normal 1.8-7.5 [facility] Comment on above: Performed By: #### L [id number] ####Flavor Room Worker: VELMA VALADEZ ([id number])[facility] ([facility])[address] [place] [address] Neutrophils/100 WBC (Bld) 66.4 % Normal 38.0-82.0 [facility] Comment on above: Performed By: #### L [id number] ####Flavor Room Worker: VELMA VALADEZ ([id number])[facility])[address] [place] [address] NRBC 0.0 /100 WBCs Normal 0.0-2.0 [facility] Comment on above: Performed By: #### L [id number] ####Flavor Room Worker: VELMA VALADEZ ([id number])[facility])[address] [place] [address] Platelet mean volume (Bld) [Entitic vol] 10.0 fL Normal 9.0-12.7 [facility] Comment on above: Performed By: #### L [id number] ####Flavor Room Worker: VELMA [id number])[facility] ([facility])[address] [place] [address] Platelets (Bld) [#/Vol] 266 10*3/uL Normal 140-[address] [facility] Comment on above: Performed By: #### L [id number] ####Flavor Room Worker: VELMA VALADEZ ([id number])[facility] ([facility])[address] [place] [address] RBC (Bld) [#/Vol] 4.21 10*6/uL Normal 3.80-5.[address] [facility] Comment on above: Performed By: #### L [id number] ####Flavor Room Worker: VELMA VALADEZ ([id number])[facility] ([facility])[address] [place] [address] WBC (Bld) [#/Vol] 8.1 10*3/uL Normal 3.6-10.[address] [facility] Comment on above: Performed By: #### L [id number] ####Flavor Room Worker: VELMA VALADEZ ([id number])[facility] ([facility])[address] [place] [address] Consulton 04-04-2024 Consult [facility] Consult Normal [facility] ECG 12-LEADon 04-04-2024 ECG 12-LEAD IMPRESSION: Atrial fibrillation Borderline T abnormalities, inferior leads Compared to ECG 08/28/11 Sinus rhythm no longer noted Electronically Signed On 04-04-2024 03:48:37 EDT by Sourav Swenson [facility] ED Nursing Noteon 04-04-2024 ED Nursing Note Report to Delia Bond RN 04/04/24 0342 [facility] ED Nursing Note Multiple attempts steffen wade to call report to [facility] with phone number provided by farm 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 Will try again. Shannon Bond RN 04/04/24 0331 [facility] ED Nursing Note [facility] at bedside to transport pt to [facility]. Paperwork with EMS Shannon Bond RN 04/04/24 1006 [facility] IDNon 04-04-2024 IDN The patient is Moderately Stable - Low risk of patient condition declining or worsening The patient's goals for the shift include safety The clinical goals for the shift include therapeutic aptt Normal [facility] IDN Normal [facility] No Panel Informationon 04-04 Left Pop Rfx 1.1 s [facility] Acute extensive DVT in the right [...] popliteal vein. History of DVT in 2021 Crtt Details A george scale, color Doppler imaging, spectral Doppler analysis and B-flow ultrasound was performed. During the study 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 and transverse views were obtained. Pulsed wave doppler was performed. The exam was performed with the patient in the supine position. Overall the study quality was adequate. Study was technically difficult due to: bowel gas. CV CPACS Left MICHELLE 0.62 [facility] Left dorsalis pedis BP 78 mmHg [facility] Left posterior tibial 86 mmHg [facility] Right MICHELLE 0.55 [facility] Right arm BP 139 mmHg [facility] Right dorsalis pedis BP 65 mmHg [facility] Right posterior tibial 76 mmHg [facility] Right side findings: Resting [...] of RLE discovered just before PVR testing. Crtt Details A spectral Doppler analysis ultrasound was [...] On 04-04-2024 03:48:37 EDT by Sourav Swenson [facility] No Panel InformationOrdered By: Sourav Swenson on 04-04-2024 P Sumter 0 degrees [facility] Work Phone: NV Interval 0 ms [facility] Work Phone: QRS [place] 40 degrees [facility] Work Phone: QRSD Interval 86 ms [employer] Work Phone: QT Interval 352 ms [employer] Work Phone: QTC Interval 411 ms [employer] Work Phone: T Wave Sumter -3 degrees [employer] Work Phone: [employer] Work Phone: Progress Noteon 04-04-2024 Progress Note Normal [employer] [facility] Progress Note Normal [employer] [facility] Progress Note Normal [facility] [facility] Vital signsOrdered By: Cathy Swenson on 04-04-2024 Heart rate 82 /min bpm [employer] Work Phone: aPTT Coag (Bld) [Time]on aPTT Coag (PPP) [Time] 81.8 s High 20.0 - 30.5 s [facility] Interpretation and review of laboratory results Abnormal [facility] NOTE: The therapeuti c time for Heparin anticoagulation, based on Xa activity inhibition, is an APTT of 46-80 seconds. [facility] aPTT Coag (PPP) [Time] 81.4 s High 20.0 - 30.5 s [facility] Interpretation and review of laboratory results Abnormal [facility] NOTE: The therapeuti c time for Heparin anticoagulation, based on Xa activity inhibition, is an APTT of 46-80 seconds. [facility] aPTT Coag (Bld) [Time]Ordere d By: Devika Eisenberg on 04-04-2024 aPTT Coag (PPP) [Time] 132.2 s Critically high 20 .0 - 30.5 s [facility] Interpretation and review of laboratory results Abnormal [facility] NOTE: The therapeuti c time for Heparin anticoagulation, based on Xa activity inhibition, is an APTT of 46-80 seconds. [facility] APTTon 04-03-2024 aPTT Coag (Bld) [Time] 25.6 s Normal 20.0-30.5 [facility] Comment on above: Result Comment: BUBBA Garcia COMMENTS:NOTE: The therapeutic time for Heparin anticoagulation, based on Xa activity inhibition, is an APTT of 46-80 seconds. Performed By: #### L [id number] ####Flavor Room Worker: MARYLOU SEGURAPerriJHONATHAN ([id number])[facility] ([facility])[address] [place] [address] CBC (HEMOGRAM)on 04-03-2024 Erythrocyte distribution width (RBC) [Ratio] 14.4 % Normal 11.5-15.[address] [facility] Comment on above: Performed By: #### L [id number] ####Flavor Room Worker: MARYLOU LALO ([id number])[facility] ([facility])[address] Hematocrit (Bld) [Volume fraction] 38.6 % Normal 35.0-47.[address] [facility] Comment on above: Performed By: #### L [id number] ####Flavor Room Worker: MARYLOUSVEN MAY ([id number])[facility] ([facility])[address] [place] [address] Hemoglobin (Bld) [Mass/Vol] 12.7 g/dL Normal 11.7-16.[address] [facility] Comment on above: Performed By: #### L [id number] ####Flavor Room Worker: MARYLOU SEGURAPerriJHONATHAN ([id number])[facility] ([facility])[address] [place] [address] MCH (RBC) [Entitic mass] 30.4 pg Normal 26.0-34.[address] [facility] Comment on above: Performed By: #### L [id number] ####Flavor Room Worker: MARYLOU KUMARIJHONATHAN ([id number])[facility] ([facility])[address] [place] [address] MCHC 32.9 % Normal 30.5-36.[address] [facility] Comment on above: Performed By: #### L [id number] ####Flavor Room Worker: MARYLOU KUMARIJHONATHAN ([id number])[facility] ([facility])[address] [place] [address] MCV (RBC) [Entitic vol] 92.3 fL Normal 77.0-99.0 [facility] Comment on above: Performed By: #### L [id number] ####Flavor Room Worker: MARYLOU MAY ([id number])[facility]OSPITALSim[facility]COL[facility] CENTERBossman ([facility])[address] Platelet mean volume (Bld) [Entitic vol] 10.0 fL Normal 9.0-12.[address] [facility] Comment on above: Performed By: #### L [id number] ####Flavor Room Worker: MARYLOU MAY ([id number])[facility] HOSPITALSimran [facility]ENTER[facility] ([facility])[address] Platelets (Bld) [#/Vol] 283 10*3/uL Normal 140-[address] [facility] Comment on above: Performed By: #### L [id number] ####Flavor Room Worker: MARYLOU MAY ([id number])[facility] ([facility])[address] [place] [address] RBC (Bld) [#/Vol] 4.18 10*6/uL Normal 3.80-5.[address] [facility] Comment on above: Performed By: #### L [id number] ####Flavor Room Worker: MARYLOU MAY ([id number])[facility] ([facility])[address] WBC (Bld) [#/Vol] 9.3 10*3/uL Normal 3.6-10.[address] [facility] Comment on above: Performed By: #### L [id number] ####Flavor Room Worker: MARYLOU MAY ([id number])[facility] ([facility])[address] CBC panel Auto (Bld)on 04-03 Erythrocyte distribution width (RBC) [Ratio] 14.4 % 11.5 - 15.0 % [facility] Hematocrit (Bld) [Volume fraction] 38.6 % 35.0 - 47.0 % [facility] Hemoglobin (Bld) [Mass/Vol] 12.7 g/dL 11.7 - 16.0 g/dL [facility] Interpretation and review of laboratory results Normal [facility] MCH (RBC) [Entitic mass] 30.4 pg 26.0 - 34.0 pg [facility] MCHC (RBC) [Mass/Vol] 32.9 % 30.5 - 36.0 % [facility] MCV (RBC) [Entitic vol] 92.3 fL 77.0 - 99.0 fL [facility] Platelet mean volume (Bld) [Entitic vol] 10.0 fL 9.0 - 12.7 fL [facility] Platelets (Bld) [#/Vol] 283 10*3/uL 140 - 440 10*3/uL [facility] RBC (Bld) [#/Vol] 4.18 10*6/uL 3.80 - 5.2 0 10*6/uL [facility] WBC (Bld) [#/Vol] 9.3 10*3/uL 3.6 - 10.7 10*3/uL [facility] COMPREHENSIVE METABOLIC PANE Gilberto 04-03-2024 Albumin [Mass/Vol] 4.3 g/dL Normal 3.5-5.[address] [facility] Comment on above: Performed By: #### Weston AB103, [id number], LAB17 ####Flavor Room Worker: MARYLOU MAY ([id number])[facility] ([facility])[address] ALP [Catalytic activity/Vol] 91 U/L Normal 38-[address] [facility] Comment on above: Performed By: #### Weston [id number], [id number], LAB17 ####Flavor Room Worker: MARYLOU MAY ([id number])[facility] ([facility])[address] ALT [Catalytic activity/Vol] 10 U/L Normal 0-[address] [facility] Comment on above: Performed By: #### L AB103, [id number], LAB17 ####Flavor Room Worker: MARYLOU MAY ([id number])[facility] ([facility])[address] Anion gap [Moles/Vol] 9 mmol/L Normal 3-13 [facility] Comment on above: Performed By: #### L AB103, IUV495, LAB17 ####Flavor Room Worker: MARYLOU LALO ([id number])[facility] HOSPITALSimran CARRILLON ([facility])[address] [place] [address] [place] AST [Catalytic activity/Vol] 19 U/L Normal 15-[address] [facility] Comment on above: Performed By: #### L AB103, [id number], LAB17 ####Flavor Room Worker: MARYLOU LALO ([id number])[facility]OSPITALSimran [place] ([facility])[address] Bilirubin [Mass/Vol] 1.1 mg/dL Normal 0.2-1.3 [facility] Comment on above: Performed By: #### L AB103, [id number], LAB17 ####Flavor Room Worker: MARYLOU LALO ([id number])[facility]OSPITALSimran SERRATO ([facility])[address] Calcium [Mass/Vol] 9.3 mg/dL Normal 8.4-10.[address] [facility] Comment on above: Performed By: #### L AB103, [id number], LAB17 ####Flavor Room Worker: MARYLOU SEGURAPAIGEJHONATHAN ([id number])[facility] HOSPITALSimran [facility]AS[facility]ZLINCOLN COUNTY MEDICAL CENTERN ([facility])[address] [place] [address] [place] Chloride [Moles/Vol] 107 mmol/L Normal 98-107 [facility] Comment on above: Performed By: #### L AB103, [id number], LAB17 ####Flavor Room Worker: MARYLOU KUMARIJHONATHAN ([id number])[facility] HOSPITALSimran [place] ([facility])[address] [place] [address] [place] CO2 [Moles/Vol] 20 mmol/L Low 22-30 [facility] Comment on above: Performed By: #### L AB103, EPC325, LAB17 ####Flavor Room Worker: MARYLOU MAY ([id number])[facility] HOSPITALSimran [place] ([facility])[address] [place] [address] [place] Creatinine [Mass/Vol] 1.54 mg/dL High 0.52-1.04 [facility] Comment on above: Performed By: #### L AB103, [id number], LAB17 ####Flavor Room Worker: MARYLOU MAY ([id number])[facility] ([facility])[address] GLOMERULAR FILTRATION RATE ML/MIN/1.73 SQ M.PREDICTED 33.2 mL/min/1.73m*2 Low >60.[address] [facility] Comment on above: Result Comment: Calc ulation based on the Chronic Kidney Disease Epidemiology Collaboration (CKD-EPI) equation refit without adjustment for race Performed By: #### L AB103, [id number], LAB17 ####Flavor Room Worker: MARYLOU MAY ([id number])[facility] ([facility])[address] [place] [address] Glucose [Mass/Vol] 115 mg/dL High 70-[address] [facility] Comment on above: Performed By: #### Weston DAWSON, [id number], LAB17 ####Flavor Room Worker: MARLYOU MAY ([id number])[facility] ([facility])[address] Potassium [Moles/Vol] 5.7 mmol/L High 3.5-5.1 [facility] Comment on above: Performed By: #### Weston REIS103, [id number], LAB17 ####Flavor Room Worker: MARYLOU MAY ([id number])[facility] ([facility])[address] Protein [Mass/Vol] 7.7 g/dL Normal 6.3-8.[address] [facility] Comment on above: Performed By: #### L AB103, [id number], LAB17 ####Flavor Room Worker: MARYLOU MAY ([id number])[facility] ([facility])[address] [place] [address] [place] Sodium [Moles/Vol] 135 mmol/L Normal 135-[address] [facility] Comment on above: Performed By: #### L AB103, URQ754, LAB17 ####Flavor Room Worker: MARYLOU MAY ([id number])[facility] ([facility])[address] Urea nitrogen [Mass/Vol] 29 mg/dL High 7-[address] [facility] Comment on above: Performed By: #### L AB103, VEA031, LAB17 ####Flavor Room Worker: MARYLOU MAY ([id number])[facility] ([facility])[address] HEAD WO IV CONTRASTon CT HEAD WO IV CONTRAST Normal [facility] CT Head WO contraston 2023 1. No acute finding. Chronic left cerebellar infarct.. Report Dictated on Electronically Signed By: Toño Tang MD Electronically Signed Date/Time: 04/03/2024 9:21 PM EDT [facility] Patient Name: MEL CARVER RD [...] midline shift. No hydrocephalus. Left globe prosthesis. [facility] Toño Tang MD - 04/03/2024 Patient [...] Electronically Signed Date/Time: 04/03/2024 9:21 PM EDT [facility] Radiology Study observation (narrative) [facility] CT Head WO contrastOrdered B y: Toño Tang on 04-03-2024 [employer] Work Phone: CTA AORTA BL ILIOFEMORAL W W Oon 04-03-2024 CTA AORTA BL ILIOFEMORAL W WO Normal [facility] CTA Thoracic and Abdominal A zachary [...] Date/Time: 04/03/2024 9:36 PM EDT [facility] SYSTEM Patient Name: MEL CARVER RD : 1940 [id number] Exam Date/Time: 04/03/2024 21:14 Procedure: CTA AORTA [...] Electronically Signed Date/Time: 04/03/2024 9:36 PM EDT [facility] Radiology Study observation (narrative) [facility] metabolic 1998 panelon 04-03-2024 Albumin [Mass/Vol] 4.3 g/dL 3.5 - 5.0 g/dL [facility] ALP [Catalytic activity/Vol] 91 U/L 38 - 126 U/L [facility] ALT [Catalytic activity/Vol] 10 U/L 0 - 34 U/L [facility] Anion gap [Moles/Vol] 9 mmol/L 3 - 13 mmol/L [facility] AST [Catalytic activity/Vol] 19 U/L 15 - 46 U/L [facility] Bilirubin [Mass/Vol] 1.1 mg/dL 0.2 - 1 .3 mg/dL [facility] Calcium [Mass/Vol] 9.3 mg/dL 8.4 - 10. 4 mg/dL [facility] Chloride [Moles/Vol] 107 mmol/L 98 - 10 7 mmol/L [facility] CO2 [Moles/Vol] 20 mmol/L Low 22 - 30 mmol/L [facility] Creatinine [Mass/Vol] 1.54 mg/dL High 0.52 - 1.04 mg/dL [facility] GFR/1.73 sq M.predicted (S/P/Bld) [Vol rate/Area] 33.2 mL/min Low - PINF [facility] Comment on above: Calculation based on the Chronic Kidney Disease Epidemiology Collaboration (CKD-EPI) equation refit without adjustment for race Glucose [Mass/Vol] 115 mg/dL High 70 - 100 mg/dL [facility] Interpretation and review of laboratory results Abnormal [facility] Potassium [Moles/Vol] 5.7 mmol/L High 3.5 - 5.1 mmol/L [facility] Protein [Mass/Vol] 7.7 g/dL 6.3 - 8.2 g/dL [facility] Sodium [Moles/Vol] 135 mmol/L 135 - 145 mmol/L [facility] Urea nitrogen [Mass/Vol] 29 mg/dL High 7 - 17 mg/dL [facility] ED Nursing Noteon 04-03-2024 ED Nursing Note Normal [facility] ED Provider Noteon ED Provider Note Normal [facility] Laboratory - Chemistry and C hemistry - challengeon 04-03-2024 Troponin I.cardiac [Mass/Vol] 0.014 ng/mL NINF - 0.034 ng/mL [facility] Magnesium [Mass/Vol] 2.3 mg/dL 1.6 - 2 .3 mg/dL [facility] Laboratory - Coagulationon 0 04-03-2024 aPTT Coag (PPP) [Time] 26.7 s 20.0 - 30.5 s [facility] INR Coag (PPP) [Relative time] 1.0 {INR} 0.9 - 1.1 [facility] Comment on above: Recommended Anticoag ulant [...] 11.7 s 9.0 - 1 2.0 s [facility] MAGNESIUMon 04-03-2024 Magnesium [Mass/Vol] 2.3 mg/dL Normal 1.6-2.3 [facility] Comment on above: Performed By: #### L AB103, [id number], LAB17 ####Flavor Room Worker: MARYLOU MAY ([id number])[facility] ROJELIO ([facility] [place] [address] Magnesium [Mass/Vol]on 04-03 Interpretation and review of laboratory results Normal [facility] No Panel Informationon 04-03 [facility] Interpretation and review of laboratory results Normal [facility] PROTIME AND APTTon aPTT Coag (Bld) [Time] 26.7 s Normal 20.0-30.5 [facility] Comment on above: Performed By: #### L [id number] ####Flavor Room Worker: MARYLOU MAY ([id number])[facility] ([facility])[address] [place] [address] INR Coag (PPP) [Relative time] 1.0 {INR} Normal 0.9-1.[address] [facility] Comment on above: Result Comment: Timothy [...] prevent Myocardial Infarction Performed By: #### L [id number] ####Flavor Room Worker: MARYLOU MAY ([id number])[facility] ([facility])[address] [place] [address] PT Coag (PPP) [Time] 11.7 s Normal 9.0-12.0 [facility] Comment on above: Performed By: #### L [id number] ####Flavor Room Worker: MARYLOU MAY ([id number])[facility] ([facility])[address] [place] [address] TROPONIN Ion 04-03-2024 Troponin I.cardiac [Mass/Vol] 0.014 ng/mL Normal <0.[address] [facility] Comment on above: Result Comment: BUBBA Garcia COMMENTS:Patients with high levels of Biotin oral intake (ie >5 mg/day) may have falsely decreased Troponin levels. Performed By: #### L AB103, [id number], LAB17 ####Flavor Room Worker: MARYLOU MAY ([id number])[facility] ([facility])[address] [place] [address] Troponin I.cardiac [Mass/Vol ]on 04-03-2024 Interpretation and review of laboratory results Normal [facility] Patients with high levels of Biotin oral intake (ie >5 mg/day) may have falsely decreased Troponin levels. [facility] aPTT Coag (Bld) [Time]on aPTT Coag (PPP) [Time] 25.6 s 20.0 - 30.5 s [facility] Interpretation and review of laboratory results Normal [facility] NOTE: The therapeuti c time for Heparin anticoagulation, based on Xa activity inhibition, is an APTT of 46-80 seconds. [facility] MR Lower leg - left [...] MD Electronically Signed Date/Time: 06/16/2023 8:10 AM [facility] [employer] [facility] Patient Name: MEL CARVER RD : 1940 [id number] Exam Date/Time: 06/15/2023 16:21 Procedure: MR TIBIA [...] and lateral ankle resulting from ORIF hardware. [facility] Dimas Woodward MD - 06/16/2023 Patient Name: MEL POP : 1940 [facility]#: [id number] Exam Date/Time: 06/15/2023 16:21 Procedure: MR TIBIA [...] Electronically Signed Date/Time: 06/16/2023 8:10 AM EST [employer] MR Lower leg - left WO and W contrast IVOrdered By: Dimas Woodward on 06-16-2023 [employer] Work Phone: MR Lower leg - left WO and W contrast Cheryl 06-15-2023 Radiology Study observation (narrative) [facility] No Panel Informationon 05-24 No evidence of venous thrombus in the left lower extremity. Report Dictated on Electronically Signed By: Yasmany Whyte MD Electronically Signed Date/Time: 05/24/2023 11:42 AM [facility] Patient Name: MEL CARVER RD : [...] augmentation and normal response to Valsalva maneuver. [facility] Yasmany Whyte MD - 05/24/2023 Patient [...] Electronically Signed Date/Time: 05/24/2023 11:42 AM EST [facility] CT Neck W contrast Cheryl 02-16 Patient [...] MD Electronically Signed Date/Time: 03/11/2023 10:28 AM [facility] Efrain Yi MD - 03/11/2023 [...] Electronically Signed Date/Time: 03/11/2023 10:[address] [facility] [address] Neck W contrast IVOrdered By: Efrain Yi on 03-11-2023 [employer] Work Phone: CT Neck W contrast Cheryl 02-16 Radiology Study observation (narrative) [facility] US Head and neck soft tissue on 02-24-2023 Indeterminate soft tissue nodules in the patients area of palpable concern in the left neck, which may represent enlarged left submandibular gland with obstructing sialolith and adjacent enlarged lymph node. Recommend further evaluation with contrast-enhanced neck CT. Report Dictated on Electronically Signed By: Ryan Mccollum MD Electronically Signed Date/Time: 02/24/2023 8:23 AM EDT [employer] Patient Name: MEL CARVER RD : [...] measuring 1.8 x 1.6 x 1.4 cm. [employer] Ryan Mccollum MD - 02/24/2023 Patient Name: MEL POP : 1940 [facility]#: [id number] Exam Date/Time: 02/22/2023 13:44 Procedure: US HEAD [...] Electronically Signed Date/Time: 02/24/2023 8:23 [address] [email or web address] US Head and neck soft tissue Ordered By: Ryan Mccollum on 02-24-2023 [employer] Work Phone: US Head and neck soft tissue on 02-22-2023 Radiology Study observation (narrative) [facility] CONSULT PROGon 06-29-2022 CONSULT PROG HNO ID: [id number] Author: Nemo Petty APRN.MANDREL MAKER Service: Wound/Ostomy Author Type: Nurse Practitioner Type: Consult Progress Note Filed: 06/29/2022 12:51 PM Note Text: WOUND CARE SERVICE PROGRESS PROJECT PORTFOLIO ANALYST NOTE SERVICE DATE: 06/29/2022 SERVICE TIME: 10:20 TIME SPENT (minutes): 30 REASON FOR CONSULT: follow up wound care visit to reassess skin/wounds CHIEF COMPLAINT: right finger wound Subjective HISTORY OF PRESENT ILLNESS: Ms. Jose Alberto Castillo is a 81 year old female who is seen today with Delia Bruno, Wound/ship steward, as a follow up wound care visit [...] Wound Image Site Assessment Red;Intact Allie-Wound Assessment Mckinley Drainage Amount None Treatments Protective Barrier Ointment Dressing Foam- Adhesive Active Orders Date Order Priority Status Authorizing Provider 06/28/22 1423 zinc oxide 20 % ointment Active Iwona Chu DO 06/21/22 1248 DRESSING CARE (SPECIFY) ([place]) Routine Active Fidel Carmen APRN.MANDREL MAKER - Specify:: Apply allevyn foam to coccyx, peel down every shift to assess skin and to apply zinc oxide, change every 3 days or if soiled. 06/21/22 1248 zinc oxide 20 % Active Fidel Carmen APRN.[employer]ANDREL MAKER Wound 06/16/22 Incision Knee Left;Posterior (Active) Assessments 06/29/2022 10:27 AM Wound Image Site Assessment Dry;Intact Allie-Wound Assessment Intact Closure Sutures Drainage Amount None Treatments Open to Air No Linked orders to display Wound 06/21/22 0948 Atypical Wound Finger (Comment which one) Right (Active) Assessments 06/29/2022 10:23 AM Wound Image Site Assessment Red;[place]ckinley Allie-Wound Assessment Intact Wound Length (cm) 2 cm Wound Width (cm) 2.5 cm Wound Surface Area (cm2) 5 cm2 Wound Depth (cm) 0.1 cm Wound Volume (cm3) 0.5 (more content not included)... Normal [facility] NUTRITIONon 06-29-2022 NUTRITION HNO ID: [id number] Author: Iwona Pelayo RD Service: Nutrition Therapy Author Type: Registered Dietitian Type: Nutrition Filed: 06/29/2022 1:38 PM Note Text: NUTRITION THERAPY PROGRESS NOTE SERVICE DATE: 06/29/2022 SERVICE TIME: 13:30 Nutrition Assessment: Recommended Malnutrition Diagnosis: No Malnutrition Identified (06/23/22 1109 : Parul Mcallister RD) Estimated kilocalorie needs: 1498-6644 Calorie Calculation Method: 25-30 kcals/kg Estimated protein [...] PT EDon 06-29-2022 PT ED HNO ID: [id number] Author: Joana Tolbert RPh Service: Pharmacy Author [...] information Outcomes not met: N/A Joana Tolbert [facility] 06-28-2022 [facility] HNO ID: [id number] Author: Iwona Chu DO Service: Hospital Medicine [...] micropuncture needle and serially upsized to a 5-Hungarian sheath. A venogram was then performed, which [...] time, the sheath was upsized to an 8-Hungarian sheath. An intravascular ultrasound was performed. This [...] NURSING PROGon 06-28-2022 NURSING PROG HNO ID: [id number] Author: John Castro RN Service: Nursing Author [...] #### 3 2355-0 #### [facility] CLIA [id number] [address] [place] CONSULT PROGon 06-25-2022 CONSULT PROG HNO ID: [id number] Author: Cirilo Yip RPh Service: Pharmacy Author Type: Pharmacist Type: Consult Progress Note Filed: 06/25/2022 1:49 PM Note Text: PHARMACY ORAL ANTICOAGULATION PATIENT EDUCATION NOTE Oral anticoagulant: apixaban Indication: DVT/PE Patient New to medication: Yes LEARNERS Persons Present: Patient Primary Learner: Patient Yarn Dyer Present: No Patient educated on the followin. [...] By: #### 3 2355-0 ####[facility]ATORYCLIA [id number] [place] [address] [place] Basic metabolic 2000 panelon 06-24-2022 Anion gap [Moles/Vol] 10 mmol/L Normal 9-18 [facility] Comment on above: Order Comment: Speci men Type: BLOOD SPECIMENOrdering Facility: [facility] Address: [address] [place] [address] Performed By: #### 2 4321-2, 22659-3 ####[facility]ATORYCLIA [id number] [place] [address] [place] Calcium [Mass/Vol] 9.0 mg/dL Normal 8.5-10.2 [facility] Comment on above: Order Comment: Speci men Type: BLOOD SPECIMENOrdering Facility: [facility] Address: [address] [place] [address] Performed By: #### 2 4321-2, 39387-5 ####[facility]ATORYCLIA [id number] [place] [address] [place] Chloride [Moles/Vol] 103 mmol/L Normal 97-105 [facility] Comment on above: Order Comment: Speci men Type: BLOOD SPECIMENOrdering Facility: [facility] Address: [address] [place] [address] Performed By: #### 2 4321-2, 10269-3 ####[facility]ATORYCLIA [id number] [place] [address] [place] CO2 [Moles/Vol] 23 mmol/L Normal 22-30 [facility] Comment on above: Order Comment: Speci men Type: BLOOD SPECIMENOrdering Facility: [facility] Address: [address] [place] [address] Performed By: #### 2 4321-2, 81757-2 ####[facility]ATORYCLIA [id number] [address] STATES [facility] Creatinine [Mass/Vol] 0.73 mg/dL Normal 0.58-0.96 [facility] Comment on above: Order Comment: Rhina mason Type: BLOOD SPECIMENOrdering Facility: [facility] Address: [address] [address] Performed By: #### 2 4321-2, 91481-2 ####[facility] [id number] [address] ESTIMATED GLOMERULAR FILTRATION RATE 82 mL/min/1.73m??? Normal >=60 [facility] Comment on above: Order Comment: Rhina mason Type: BLOOD SPECIMENOrdering Facility: [facility] Address: [address] [place] [address] Result Comment: Isa mated Glomerular Filtration Rate [...] actual GFR. Performed By: #### 2 4321-2, 49820-9 ####[facility]IA [id number] [address] [place] [facility] Glucose [Mass/Vol] 165 mg/dL High 74-99 [facility] Comment on above: Order Comment: Rhina isabella Type: BLOOD SPECIMENOrdering Facility: [facility] Address: [address] [place] [address] Result Comment: The [place] Diabetes Association (ADA) provides guidance for cutoff [...] Standards of Medical Care in Diabetes 2016, [place] [employer]. Diabetes Care. 2016.39(Suppl 1). Performed By: #### 2 4321-2, 68151-9 ####[facility]ATORYCLIA [id number] [address] [place] [facility] Potassium [Moles/Vol] 5.0 mmol/L Normal 3.7-5.1 [facility] Comment on above: Order Comment: Speci men Type: BLOOD SPECIMENOrdering Facility: [facility] Address: [address] [address] Performed By: #### 2 4321-2, 88069-1 ####[facility]ORATORYCLIA [id number] [address] [place] [facility] Sodium [Moles/Vol] 136 mmol/L Normal 136-144 [facility] Comment on above: Order Comment: Speci men Type: BLOOD SPECIMENOrdering Facility: [facility] Address: [address] [address] Performed By: #### 2 4321-2, 14664-1 ####[facility]ORATORYCLIA [id number] [address] [place] [facility] Urea nitrogen [Mass/Vol] 14 mg/dL Normal 7-21 [facility] Comment on above: Order Comment: Speci men Type: BLOOD SPECIMENOrdering Facility: [facility] Address: [address] [address] Performed By: #### 2 4321-2, 01847-2 ####[facility]ATORYCLIA [id number] [address] [place] CBC panel Auto (Bld)on 06-24 Erythrocyte distribution width (RBC) [Ratio] 17.0 % High 11.5-15.0 [facility] Comment on above: Order Comment: Speci men Type: BLOOD SPECIMENOrdering Facility: [facility] Address: [address] [address] Performed By: #### 5 8410-2 ####[facility]ORATORYCLIA [id number] [address] OF [facility] Hematocrit (Bld) [Volume fraction] 27.2 % Low 36.0-46.0 [facility] Comment on above: Order Comment: Speci men Type: BLOOD SPECIMENOrdering Facility: [facility] Address: [address] [place] [address] Performed By: #### 5 8410-2 ####[facility]ATORYCLIA [id number] [address] [facility] Hemoglobin (Bld) [Mass/Vol] 8.9 g/dL Low 11.5-15.5 [facility] Comment on above: Order Comment: Speci men Type: BLOOD SPECIMENOrdering Facility: [facility] Address: [address] [place] [address] Performed By: #### 5 8410-2 ####[facility]ATORYCLIA [id number] [address] MCH (RBC) [Entitic mass] 30.9 pg Normal 26.0-34.0 [facility] Comment on above: Order Comment: Speci men Type: BLOOD SPECIMENOrdering Facility: [facility] Address: [address] [place] [address] Performed By: #### 5 8410-2 ####[facility]ATORYCLIA [id number] [address] [place] MCHC (RBC) [Mass/Vol] 32.7 g/dL Normal 30.5-36.0 [facility] Comment on above: Order Comment: Speci men Type: BLOOD SPECIMENOrdering Facility: [facility] Address: [address] [place] [address] Performed By: #### 5 8410-2 ####[facility]ATORYCLIA [id number] [address] MCV (RBC) [Entitic vol] 94.4 fL Normal 80.0-100.0 [facility] Comment on above: Order Comment: Speci men Type: BLOOD SPECIMENOrdering Facility: [facility] Address: [address] [address] Performed By: #### 5 8410-2 ####[facility]ATORYCLIA [id number] [address] [place] Nucleated RBC (Bld) [#/Vol] 0.03 10*3/uL High <0.01 [facility] Comment on above: Order Comment: Speci men Type: BLOOD SPECIMENOrdering Facility: [facility] Address: [address] [address] Performed By: #### 5 8410-2 ####[facility]ORATORYCLIA [id number] [address] [place] Platelet mean volume (Bld) [Entitic vol] 9.8 fL Normal 9.0-12.7 [facility] Comment on above: Order Comment: Speci men Type: BLOOD SPECIMENOrdering Facility: [facility] Address: [address] [place] [address] Performed By: #### 5 8410-2 ####[facility]ATORYCLIA [id number] [address] [place] Platelets (Bld) [#/Vol] 241 10*3/uL Normal 150-400 [facility] Comment on above: Order Comment: Speci men Type: BLOOD SPECIMENOrdering Facility: [facility] Address: [address] [address] Performed By: #### 5 8410-2 ####[facility]ATORYCLIA [id number] [address] [place] RBC (Bld) [#/Vol] 2.88 10*6/uL Low 3.90-5.20 [facility] Comment on above: Order Comment: Speci men Type: BLOOD SPECIMENOrdering Facility: [facility] Address: [address] [place] [address] Performed By: #### 5 8410-2 ####[facility]ATORYCLIA [id number] [address] [place] WBC (Bld) [#/Vol] 6.37 10*3/uL Normal 3.70-11.00 [facility] Comment on above: Order Comment: Speci men Type: BLOOD SPECIMENOrdering Facility: [facility] Address: [address] [place] [address] Performed By: #### 5 8410-2 ####[facility]ATORYCLIA [id number] [address] NT-proBNP SerPl-mCncon 06-24 Natriuretic peptide.B prohormone N-Terminal [Mass/Vol] 2971 pg/mL High <450 [facility] Comment on above: Order Comment: Speci men Type: BLOOD SPECIMENOrdering Facility: [facility] Address: [address] [place] [address] Performed By: #### 2 4321-2, 19106-8 ####[facility]ATORYCLIA [id number] [address] aPTT PPPon 06-24-2022 aPTT Coag (PPP) [Time] 64.2 s High 23.0-32.4 [facility] Comment on above: Order Comment: Speci men Type: BLOOD SPECIMEN [facility] Address: [address] [place] [address] Performed By: #### T SCR #### [facility] CLIA [id number] [address] [facility] aPTT Coag (PPP) [Time] 45.8 s High 23.0-32.4 [facility] Comment on above: Order Comment: Speci men Type: BLOOD SPECIMENOrdering Facility: [facility] Address: [address] [place] [address] Performed By: #### 3 2355-0 #### [facility] CLIA [id number] [address] aPTT Coag (PPP) [Time] 116.8 s High 28.5-34.0 [facility] Comment on above: Order Comment: Speci men Type: BLOOD SPECIMENOrdering Facility: [facility] Address: [address] [place] [address] Performed By: #### 1 4979-9 ####[facility]ATORYCLIA [id number] [place] [address] [place] ALLIED HEALTHon 06-23-2022 ALLIED HEALTH HNO ID: [id number] Author: Mikel Coronado RT(R) Service: Radiology Author [...] Comment: Speci men Type: BLOOD SPECIMENOrdering Facility: [facility] Address: [address] [place] [address] Performed By: #### 5 8410-2 ####[facility]ATORYCLIA [id number] [address] [place] Hematocrit (Bld) [Volume fraction] 29.6 % Low 36.0-46.0 [facility] Comment on above: Order Comment: Speci men Type: BLOOD SPECIMENOrdering Facility: [facility] Address: [address] [place] [address] Performed By: #### 5 8410-2 ####[facility]ATORYCLIA [id number] [address] Hemoglobin (Bld) [Mass/Vol] 9.5 g/dL Low 11.5-15.5 [facility] Comment on above: Order Comment: Speci men Type: BLOOD SPECIMENOrdering Facility: [facility] Address: [address] [place] [address] Performed By: #### 5 8410-2 ####[facility]ATORYCLIA [id number] [address] MCH (RBC) [Entitic mass] 30.4 pg Normal 26.0-34.0 [facility] Comment on above: Order Comment: Speci men Type: BLOOD SPECIMENOrdering Facility: [facility] Address: [address] [place] [address] Performed By: #### 5 8410-2 ####[facility]ATORYCLIA [id number] [address] MCHC (RBC) [Mass/Vol] 32.1 g/dL Normal 30.5-36.0 [facility] Comment on above: Order Comment: Speci men Type: BLOOD SPECIMENOrdering Facility: [facility] Address: [address] [place] [address] Performed By: #### 5 8410-2 ####[facility]ATORYCLIA [id number] [address] [place] [facility] MCV (RBC) [Entitic vol] 94.6 fL Normal 80.0-100.0 [facility] Comment on above: Order Comment: Speci men Type: BLOOD SPECIMENOrdering Facility: [facility] Address: [address] [place] [address] Performed By: #### 5 8410-2 ####[facility]ATORYCLIA [id number] [place] [address] [place] Nucleated RBC (Bld) [#/Vol] 0.07 10*3/uL High <0.01 [facility] Comment on above: Order Comment: Speci men Type: BLOOD SPECIMENOrdering Facility: [facility] Address: [address] [place] [address] Performed By: #### 5 8410-2 ####[facility]ATORYCLIA [id number] [place] [address] [place] Platelet mean volume (Bld) [Entitic vol] 9.9 fL Normal 9.0-12.7 [facility] Comment on above: Order Comment: Speci men Type: BLOOD SPECIMENOrdering Facility: [facility] Address: [address] [place] [address] Performed By: #### 5 8410-2 ####[facility]ATORYCLIA [id number] [place] [address] [place] Platelets (Bld) [#/Vol] 241 10*3/uL Normal 150-400 [facility] Comment on above: Order Comment: Speci men Type: BLOOD SPECIMENOrdering Facility: [facility] Address: [address] [place] [address] Performed By: #### 5 8410-2 ####[facility]ATORYCLIA [id number] [place] [address] [place] RBC (Bld) [#/Vol] 3.13 10*6/uL Low 3.90-5.20 [facility] Comment on above: Order Comment: Speci men Type: BLOOD SPECIMENOrdering Facility: [facility] Address: [address] [place] [address] Performed By: #### 5 8410-2 ####[facility]ATORYCLIA [id number] [place] [address] [place] WBC (Bld) [#/Vol] 6.86 10*3/uL Normal 3.70-11.00 [facility] Comment on above: Order Comment: Speci men Type: BLOOD SPECIMENOrdering Facility: [facility] Address: [address] [place] [address] Performed By: #### 5 8410-2 ####[facility]ORATORYCLIA [id number] [place] [address] [facility] NUTRITIONon 06-23-2022 NUTRITION HNO ID: [id number] Author: Parul Mcallister RD Service: Nutrition Therapy Author Type: Registered Dietitian Type: Nutrition Filed: 06/23/2022 2:28 PM Note Text: NUTRITION THERAPY INITIAL ASSESSMENT SERVICE DATE: 06/23/2022 SERVICE TIME: 11:09 AM Nutrition Assessment: Recommended Malnutrition Diagnosis: No Malnutrition Identified Nutrition Diagnosis: Problem: Suboptimal protein/energy intake Related to: Inability to consume sufficient nutrients As evidenced by: Patient/family self-report;Intake records Estimated kilocalorie needs: 1291-9937 Calorie Calculation Method: 25-30 kcals/kg Estimated protein [...] sites of pneumonia. Small bilateral pleural effusions. Rerecording Mixer: PSCB Transcribe Date/Time: Jun 24 2022 6:34A Dictated by : DI MINER MD This examination was interpreted and the report reviewed and electronically signed by: DI MINER MD on Jun 24 2022 6:36AM EST [id number] Normal [facility] aPTT PPPon 06-23-2022 aPTT Coag (PPP) [Time] 46.7 s High 23.0-32.4 [facility] Comment on above: Order Comment: Speci men Type: BLOOD SPECIMENOrdering Facility: [facility] Address: [address] [place] [address] Performed By: #### 1 4979-9 ####[facility]ORATORYCLIA [id number] [address] aPTT Coag (PPP) [Time] 53.8 s High 23.0-32.4 [facility] Comment on above: Order Comment: Speci men Type: BLOOD SPECIMENOrdering Facility: [facility] Address: [address] [place] [address] Performed By: #### 1 4979-9 ####[facility]ATORYCLIA [id number] [address] aPTT Coag (PPP) [Time] 114.5 s High 23.0-32.4 [facility] Comment on above: Order Comment: Speci men Type: BLOOD SPECIMEN [facility] Address: [address] [place] [address] Performed By: #### T SCR #### [facility] CLIA [id number] [address] CBC W Auto Differential pane l (Bld)on 06-22-2022 Basophils (Bld) [#/Vol] 0.03 10*3/uL Normal <0.11 [facility] Comment on above: Order Comment: Speci men Type: BLOOD SPECIMENOrdering Facility: [facility] Address: [address] [place] [address] Result Comment: Diff erential confirmed by visual scan of peripheral blood smear slide Performed By: #### 5 7021-8 ####[facility]ATORYCLIA [id number] [address] Basophils/100 WBC (Bld) 0.5 % Normal [facility] Comment on above: Order Comment: Speci men Type: BLOOD SPECIMENOrdering Facility: [facility] Address: [address] [place] [address] Performed By: #### 5 7021-8 ####[facility]ATORYCLIA [id number] [address] Differential cell count method Nom (Bld) Auto Normal [facility] Comment on above: Order Comment: Speci men Type: BLOOD SPECIMENOrdering Facility: [facility] Address: [address] [place] [address] Performed By: #### 5 7021-8 ####[facility]ORATORYCLIA [id number] [address] [place] Eosinophils (Bld) [#/Vol] 10*3/uL Normal <0.46 [facility] Comment on above: Order Comment: Speci men Type: BLOOD SPECIMENOrdering Facility: [facility] Address: [address] [place] [address] Performed By: #### 5 7021-8 ####[facility]ATORYCLIA [id number] [address] Eosinophils/100 WBC (Bld) 0.0 % Normal [facility] Comment on above: Order Comment: Speci men Type: BLOOD SPECIMENOrdering Facility: [facility] Address: [address] [place] [address] Performed By: #### 5 7021-8 ####[facility]ORATORYCLIA [id number] [address] [place] Erythrocyte distribution width (RBC) [Ratio] 16.2 % High 11.5-15.0 [facility] Comment on above: Order Comment: Speci men Type: BLOOD SPECIMENOrdering Facility: [facility] Address: [address] [place] [address] Performed By: #### 5 7021-8 ####[facility] LABORATORYCLIA [id number] [address] [place] Hematocrit (Bld) [Volume fraction] 25.1 % Low 36.0-46.0 [facility] Comment on above: Order Comment: Speci men Type: BLOOD SPECIMENOrdering Facility: [facility] Address: [address] [place] [address] Performed By: #### 5 7021-8 ####[facility]ORATORYCLIA [id number] [address] [place] Hemoglobin (Bld) [Mass/Vol] 8.4 g/dL Low 11.5-15.5 [facility] Comment on above: Order Comment: Speci men Type: BLOOD SPECIMENOrdering Facility: [facility] Address: [address] [place] [address] Performed By: #### 5 7021-8 ####[facility]ORATORYCLIA [id number] [address] [place] Immature granulocytes (Bld) [#/Vol] 0.60 10*3/uL High <0.10 [facility] Comment on above: Order Comment: Speci men Type: BLOOD SPECIMENOrdering Facility: [facility] Address: [address] [place] [address] Performed By: #### 5 7021-8 ####[facility] LABORATORYCLIA [id number] [address] [place] Immature granulocytes/100 WBC (Bld) 10.3 % Normal [facility] Comment on above: Order Comment: Speci men Type: BLOOD SPECIMENOrdering Facility: [facility] Address: [address] [place] [address] Performed By: #### 5 7021-8 ####[facility] LABORATORYCLIA [id number] [place] [address] [place] Lymphocytes (Bld) [#/Vol] 1.38 10*3/uL Normal 1.00-4.00 [facility] Comment on above: Order Comment: Speci men Type: BLOOD SPECIMENOrdering Facility: [facility] Address: [address] [place] [address] Performed By: #### 5 7021-8 ####[facility] LABORATORYCLIA [id number] [address] [place] Lymphocytes/100 WBC (Bld) 23.7 % Normal [facility] Comment on above: Order Comment: Speci men Type: BLOOD SPECIMENOrdering Facility: [facility] Address: [address] [place] [address] Performed By: #### 5 7021-8 ####[facility]ORATORYCLIA [id number] [address] MCH (RBC) [Entitic mass] 31.2 pg Normal 26.0-34.0 [facility] Comment on above: Order Comment: Speci men Type: BLOOD SPECIMENOrdering Facility: [facility] Address: [address] [place] [address] Performed By: #### 5 7021-8 ####[facility]ORATORYCLIA [id number] [address] MCHC (RBC) [Mass/Vol] 33.5 g/dL Normal 30.5-36.0 [facility] Comment on above: Order Comment: Speci men Type: BLOOD SPECIMENOrdering Facility: [facility] Address: [address] [place] [address] Performed By: #### 5 7021-8 ####[facility] LABORATORYCLIA [id number] [address] MCV (RBC) [Entitic vol] 93.3 fL Normal 80.0-100.0 [facility] Comment on above: Order Comment: Speci men Type: BLOOD SPECIMENOrdering Facility: [facility] Address: [address] [place] [address] Performed By: #### 5 7021-8 ####[facility] LABORATORYCLIA [id number] [address] Monocytes (Bld) [#/Vol] 0.50 10*3/uL Normal <0.87 [facility] Comment on above: Order Comment: Speci men Type: BLOOD SPECIMENOrdering Facility: [facility] Address: [address] [place] [address] Performed By: #### 5 7021-8 ####[facility] LABORATORYCLIA [id number] [address] [place] Monocytes/100 WBC (Bld) 8.6 % Normal [facility] Comment on above: Order Comment: Speci men Type: BLOOD SPECIMENOrdering Facility: [facility] Address: [address] [place] [address] Performed By: #### 5 7021-8 ####[facility] LABORATORYCLIA [id number] [address] [place] Neutrophils (Bld) [#/Vol] 3.31 10*3/uL Normal 1.45-7.50 [facility] Comment on above: Order Comment: Speci men Type: BLOOD SPECIMENOrdering Facility: [facility] Address: [address] [place] [address] Performed By: #### 5 7021-8 ####[facility]ORATORYCLIA [id number] [address] Neutrophils/100 WBC (Bld) 56.9 % Normal [facility] Comment on above: Order Comment: Speci men Type: BLOOD SPECIMENOrdering Facility: [facility] Address: [address] [place] [address] Performed By: #### 5 7021-8 ####[facility]ORATORYCLIA [id number] [address] [place] Nucleated RBC (Bld) [#/Vol] 0.10 10*3/uL High <0.01 [facility] Comment on above: Order Comment: Speci men Type: BLOOD SPECIMENOrdering Facility: [facility] Address: [address] [place] [address] Performed By: #### 5 7021-8 ####[facility]ATORYCLIA [id number] [address] [place] Nucleated RBC/100 WBC (Bld) [Ratio] 1.7 /100 WBC Normal [facility] Comment on above: Order Comment: Speci men Type: BLOOD SPECIMENOrdering Facility: [facility] Address: [address] Performed By: #### 5 7021-8 ####[facility] LABORATORYCLIA [id number] [address] [place] [facility] Platelet mean volume (Bld) [Entitic vol] 9.7 fL Normal 9.0-12.7 [facility] Comment on above: Order Comment: Speci men Type: BLOOD SPECIMENOrdering Facility: [facility] Address: [address] [place] [address] Performed By: #### 5 7021-8 ####[facility] LABORATORYCLIA [id number] [address] [place] Platelets (Bld) [#/Vol] 209 10*3/uL Normal 150-400 [facility] Comment on above: Order Comment: Speci men Type: BLOOD SPECIMENOrdering Facility: [facility] Address: [address] [place] [address] Performed By: #### 5 7021-8 ####[facility] LABORATORYCLIA [id number] [place] [address] [place] RBC (Bld) [#/Vol] 2.69 10*6/uL Low 3.90-5.20 [facility] Comment on above: Order Comment: Speci men Type: BLOOD SPECIMENOrdering Facility: [facility] Address: [address] [place] [address] Performed By: #### 5 7021-8 ####[facility] LABORATORYCLIA [id number] [address] [place] WBC (Bld) [#/Vol] 5.82 10*3/uL Normal 3.70-11.00 [facility] Comment on above: Order Comment: Speci men Type: BLOOD SPECIMENOrdering Facility: [facility] Address: [address] [place] [address] Performed By: #### 5 7021-8 ####[facility] LABORATORYCLIA [id number] [address] [place] CONSULT PROGon 06-22-2022 CONSULT PROG HNO ID: [id number] Author: Eliza Martin APRN.MANAGER SUPPLY CHAIN Service: Gastroenterology Author Type: Nurse Specialist Type: [...] Comment: Speci men Type: BLOOD SPECIMENOrdering Facility: [facility] Address: [address] [address] Performed By: #### 2 4323-8 ####[facility] LABORATORYCLIA [id number] [place] [address] [place] ALP [Catalytic activity/Vol] 129 U/L High 34-123 [facility] Comment on above: Order Comment: Speci men Type: BLOOD SPECIMENOrdering Facility: [facility] Address: [address] [address] Performed By: #### 2 4323-8 ####[facility]ATORYCLIA [id number] [place] [address] [place] ALT With P-5'-P [Catalytic activity/Vol] 21 U/L Normal 7-38 [facility] Comment on above: Order Comment: Speci men Type: BLOOD SPECIMENOrdering Facility: [facility] Address: [address] [place] [address] Performed By: #### 2 4323-8 ####[facility] LABORATORYCLIA [id number] [address] [place] Anion gap [Moles/Vol] 10 mmol/L Normal 9-18 [facility] Comment on above: Order Comment: Speci men Type: BLOOD SPECIMENOrdering Facility: [facility] Address: [address] [place] [address] Performed By: #### 2 4323-8 ####[facility] LABORATORYCLIA [id number] [address] AST With P-5'-P [Catalytic activity/Vol] 19 U/L Normal 13-35 [facility] Comment on above: Order Comment: Speci men Type: BLOOD SPECIMENOrdering Facility: [facility] Address: [address] [place] [address] Performed By: #### 2 4323-8 ####[facility] LABORATORYCLIA [id number] [address] [place] Bilirubin [Mass/Vol] 0.6 mg/dL Normal 0.2-1.3 [facility] Comment on above: Order Comment: Speci men Type: BLOOD SPECIMENOrdering Facility: [facility] Address: [address] [place] [address] Performed By: #### 2 4323-8 ####[facility] LABORATORYCLIA [id number] [address] [facility] Calcium [Mass/Vol] 8.6 mg/dL Normal 8.5-10.2 [facility] Comment on above: Order Comment: Speci men Type: BLOOD SPECIMENOrdering Facility: [facility] Address: [address] [address] Performed By: #### 2 4323-8 ####[facility] LABORATORYCLIA [id number] [address] [place] Chloride [Moles/Vol] 105 mmol/L Normal 97-105 [facility] Comment on above: Order Comment: Speci men Type: BLOOD SPECIMENOrdering Facility: [facility] Address: [address] [place] [address] Performed By: #### 2 4323-8 ####[facility] LABORATORYCLIA [id number] [address] [place] CO2 [Moles/Vol] 21 mmol/L Low 22-30 [facility] Comment on above: Order Comment: Speci men Type: BLOOD SPECIMENOrdering Facility: [facility] Address: [address] [place] [address] Performed By: #### 2 4323-8 ####[facility] LABORATORYCLIA [id number] [address] [facility] Creatinine [Mass/Vol] 0.88 mg/dL Normal 0.58-0.96 [facility] Comment on above: Order Comment: Speci men Type: BLOOD SPECIMENOrdering Facility: [facility] Address: [address] [place] [address] Performed By: #### 2 4323-8 ####[facility] LABORATORYCLIA [id number] [address] ESTIMATED GLOMERULAR FILTRATION RATE 66 mL/min/1.73m??? Normal >=60 [facility] Comment on above: Order Comment: Speci men Type: BLOOD SPECIMENOrdering Facility: [facility] Address: [address] [place] [address] Result Comment: Isa mated Glomerular Filtration Rate [...] By: #### 2 4323-8 ####[facility] LABORATORYCLIA [id number] [place] [address] [place] Glucose [Mass/Vol] 95 mg/dL Normal 74-99 [facility] Comment on above: Order Comment: Rhina mason Type: BLOOD SPECIMENOrdering Facility: [facility] Address: [address] [place] [address] Result Comment: The [place] Diabetes Association (ADA) provides guidance for cutoff [...] Standards of Medical Care in Diabetes 2016, [place] [employer]. Diabetes Care. 2016.39(Suppl 1). Performed By: #### 2 4323-8 ####[facility] LABORATORYCLIA [id number] [place] [address] [place] Potassium [Moles/Vol] 4.7 mmol/L Normal 3.7-5.1 [facility] Comment on above: Order Comment: Rhina mason Type: BLOOD SPECIMENOrdering Facility: [facility] Address: [address] [place] [address] Performed By: #### 2 4323-8 ####[facility] LABORATORYCLIA [id number] [place] [address] [place] Protein [Mass/Vol] 5.3 g/dL Low 6.3-8.0 [facility] Comment on above: Order Comment: Rhina maosn Type: BLOOD SPECIMENOrdering Facility: [facility] Address: [address] [place] [address] Performed By: #### 2 4323-8 ####[facility]ERCLIA [id number] [address] [place] Sodium [Moles/Vol] 136 mmol/L Normal 136-144 [facility] Comment on above: Order Comment: Rhina mason Type: BLOOD SPECIMENOrdering Facility: [facility] Address: [address] [place] [address] Performed By: #### 2 4323-8 ####[facility] LABORATORYCLIA [id number] [address] [place] [facility] Urea nitrogen [Mass/Vol] 7 mg/dL Normal 7-21 [facility] Comment on above: Order Comment: Rhina mason Type: BLOOD SPECIMENOrdering Facility: [facility] Address: [address] [place] [address] Performed By: #### 2 4323-8 ####[facility] LABORATORYCLIA [id number] [address] [place] H. pylori IgG IA Qlon 2021 H. PYLORI IGG, QUAL Negative Normal Negative [facility] Comment on above: Order Comment: Rhina mason Type: BLOOD SPECIMENOrdering Facility: [facility] Address: [address] [place] [address] Result Comment: Shakeel ot exclude H. pylori infection if the specimen collected 3-4 weeks after onset of symptoms. Performed By: #### 1 7859-0 ####[facility] LABCLIA [id number] [facility] [id number] [place] PT panel Coag (PPP)on 2021 INR Coag (PPP) [Relative time] {INR} Low 0.9-1.3 [facility] Comment on above: Order Comment: Rhina mason Type: BLOOD SPECIMEN [facility] Address: [address] [place] [address] Result Comment: Mayra min K Antagonist (VKA) Therapeutic Range: INR 2 to 3 (Target INR of 2.5) Note: For patients treated with VKA drugs, such as warfarin, the [place] [employer] 2012 Guideline recommends [...] Chest 2012, 141:7S-47S Daren RA, et al. [facility] 2017, 70: 252-289 Performed By: #### T SCR #### [facility] [place] [id number] [address] [facility] PT Coag (PPP) [Time] 9.9 s Normal 9.7-13.0 [facility] Comment on above: Order Comment: Speci men Type: BLOOD SPECIMEN [facility] Address: [address] [place], [place] [address] Performed By: #### T SCR #### [facility] CLIA [id number] [address] [facility] THERAPY NTon 06-22-2022 THERAPY NT HNO ID: [id number] Author: MAMIE Mortensen/Weston Service: Occupational Therapy Author Type: Occupational Therapist Type: Therapy (PT/OT/Speech/Resp) Filed: 06/22/2022 11:27 AM Note Text: Occupational Therapy Evaluation SERVICE DATE: 06/22/2022 SERVICE TIME: 1037 to 1105 ROOM: [place] [address] Recommended Discharge Disposition: Subacute/SNF Recommended Discharge Disposition [...] time Occupational Factors 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 Dopplers study was done. 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 Technologist: Azar Holcomb Gosia Ordering physician: DWAYNE ZAIDI Interpreting physician: Supriya Ponce MD Final (Updated) RP Rerecording Mixer: IRENE Transcriarley Date/Time: Jun 22 2022 7:12A Dictated by : SUPRIYA PONCE MD This examination was interpreted and the report reviewed and electronically signed by: SUPRIYA PONCE MD on Jun 24 2022 1:27PM EST [id number] Normal [facility] aPTT PPPon 06-22-2022 aPTT Coag (PPP) [Time] 43.0 s High 23.0-32.4 [facility] Comment on above: Order Comment: Speci men Type: BLOOD SPECIMENOrdering Facility: [facility] Address: [address] [place] [address] Performed By: #### 1 4979-9 ####[facility] LABORATORYCLIA [id number] [place] [address] [place] aPTT Coag (PPP) [Time] 25.6 s Normal 23.0-32.4 [facility] Comment on above: Order Comment: Speci men Type: BLOOD SPECIMEN [facility] Address: [place] [address] Performed By: #### T SCR #### [facility] CLIA [id number] [address] [place] [address] [place] ANES POSTPROC EVALon 022 ANES POSTPROC EVAL HNO ID: [id number] Author: Olu Vasquez MD Service: Anesthesiology Author Type: Physician Type: Anesthesia Postprocedure Evaluation Filed: 06/21/2022 3:20 PM Note Text: POST ANESTHESIA EVALUATION NOTE : 1940 Procedure Summary Date: 06/21/22 Room / Location: [facility] Anesthesia Start: 1134 Anesthesia Stop: 1158 Procedure: [...] June 21, 2022 TIME: 3:19 PM CSN: [id number] Normal [facility] ANES PRE-OPon 12-05-2022 [facility] PRE-OP HNO ID: [id number] Author: Olu Vasquez MD Service: Anesthesiology Author [...] CONSULT PROGon 06-21-2022 CONSULT PROG HNO ID: [id number] Author: Fidel Carmen APRN.MANDREL MAKER Service: Wound/Ostomy Author Type: Nurse Practitioner Type: Consult Progress Note Filed: 06/21/2022 1:41 PM Note Text: WOUND CARE SERVICE CONSULT PROJECT PORTFOLIO ANALYST NOTE SERVICE DATE: 06/21/2022 SERVICE TIME: 941 TIME SPENT (minutes): 30 REASON FOR CONSULT: MAD buttocks, atypical wound Right middle finger. CHIEF COMPLAINT: Right middle finger Subjective HISTORY OF PRESENT ILLNESS: Ms. Jose Alberto Castillo is a 81 year old female who is seen today with Delia Bruno, Wound/ship steward, and presented to hospital with complaints of [...] 06/21/2022 9:57 AM Wound Image Site Assessment Mckinley;Red (small open area noted) Allie-Wound Assessment Mckinley;Intact Drainage Amount None Odor None Treatments Cleansed;Protective Barrier Ointment Dressing Foam- Adhesive Dressing Changed Changed Dressing Status Clean;Dry;Intact Active Orders Date Order Priority Status Authorizing Provider 06/21/22 1248 DRESSING CARE (SPECIFY) ([place]) Routine Active Fidel Carmen APRN.MANDREL MAKER - Specify:: Apply allevyn foam to coccyx, peel down every shift to assess skin and to apply zinc oxide, change every 3 days or if soiled. 06/21/22 1248 zinc oxide 20 % Active Fidel Carmen APRN.MANDREL MAKER Wound 06/21/22 0948 Atypical Wound Finger (Comment which one) Right (Active) Assessments 06/21/2022 9:48 AM Wound Image Site Assessment Mckinley;White (shiney) Allie-Wound Assessment Intact Shape irregular Drainage Description Sanguineous (intermittent, per pt.) Drainage Amount None Odor None Treatments Cleansed Dressing Xeroform;Gauze (more content not included)... [facility] Hemoglobin (Bld) [Mass/Vol] 6.9 g/dL Low 11.5-15.5 [facility] Comment on above: Order Comment: Speci men Type: BLOOD SPECIMENOrdering Facility: [facility] Address: [place] [address] Performed By: #### 3 2355-0 #### [facility] CLIA [id number] [address] [id number] [facility] OPERATIVE NOon 06-21-2022 OPERATIVE NO HNO ID: [id number] Author: Sim Elizabeth MD Service: Gastroenterology Author Type: Physician Type: Operative Report Filed: 06/21/2022 12:01 PM Note Text: OPERATIVE/PROCEDURE REPORT LOG ID: [id number] Surgery/Procedure Date: 06/21/2022 Incision/Procedure Start Time: 11:44 AM Incision Close/Procedure End Time: 11:49 AM Surgeon(s)/Proceduralis t(s) and Supervisor Hard Candy(s): Surgeon(s) and Role: * Sim Elizabeth MD [...] 21, 2022 TIME: 11:53 AM PAGER/CONTACT #: [phone] Normal [facility] THERAPY NTon 06-21-2022 THERAPY NT HNO ID: [id number] Author: Miranda Burroughs PT Service: Physical Therapy Author Type: Physical Therapist Type: Therapy (PT/OT/Speech/Resp) Filed: 06/21/2022 10:12 AM Note Text: Physical Therapy Evaluation SERVICE DATE: 06/21/2022 SERVICE TIME: 32 to 0855 ROOM: [place] [address] Recommended Discharge Disposition: Subacute/SNF Recommended Discharge Disposition [...] gait and mobility-other Interventions Provided: Evaluation;Therapeutic Activity (55685) $ Evaluation-Moderate (37275) Billed Units: 1 unit Therapeutic Activity (57469) Treatment Minutes: 8 $ Therapeutic Activity (76201) Billed Units: 1 unit Educated pt on [...] Speci men Type: BLOOD SPECIMEN [facility] Address: [address] [place] [address] Performed By: #### T SCR #### [facility] CLIA [id number] [address] [place] [address] HISTORICAL AB SCR STATUS Negative [facility] Comment on above: Order Comment: Speci men Type: BLOOD SPECIMEN [facility] Address: [address] [place] [address] Performed By: #### T SCR #### [facility] CLIA [id number] [address] [place] [address] Rh Nom (Bld) Positive [facility] Comment on above: Order Comment: Speci men Type: BLOOD SPECIMEN [facility] Address: [address] [address] Performed By: #### T SCR #### [facility] CLIA [id number] [address] TYPE AND SCREEN EXPIRATION 06/24/2022 23:59 [facility] Comment on above: Order Comment: Speci men Type: BLOOD SPECIMEN [facility] Address: [address] [address] Performed By: #### T SCR #### [facility] CLIA [id number] [address] [facility] ALLIED HEALTHon 06-20-2022 ALLIED HEALTH HNO ID: [id number] Author: RT Tamica(Tiffanie) Service: Radiology Author Type: [...] Anion gap [Moles/Vol] 8 mmol/L Low 9-18 [facility] Comment on above: Order Comment: Speci men Type: BLOOD SPECIMENOrdering Facility: [facility] Address: [address] [place] [address] Performed By: #### 2 4321-2 ####[facility]ATORYCLIA [id number] [address] [place] Calcium [Mass/Vol] 8.5 mg/dL Normal 8.5-10.2 [facility] Comment on above: Order Comment: Speci men Type: BLOOD SPECIMENOrdering Facility: [facility] Address: [address] [place] [address] Performed By: #### 2 4321-2 ####[facility] LABORATORYCLIA [id number] [address] [place] Chloride [Moles/Vol] 106 mmol/L High 97-105 [facility] Comment on above: Order Comment: Speci men Type: BLOOD SPECIMENOrdering Facility: [facility] Address: [address] [place] [address] Performed By: #### 2 4321-2 ####[facility]ORYCLIA [id number] [address] [place] CO2 [Moles/Vol] 22 mmol/L Normal 22-30 [facility] Comment on above: Order Comment: Speci men Type: BLOOD SPECIMENOrdering Facility: [facility] Address: [address] [place] [address] Performed By: #### 2 4321-2 ####[facility]ORYCLIA [id number] [address] [place] Creatinine [Mass/Vol] 0.84 mg/dL Normal 0.58-0.96 [facility] Comment on above: Order Comment: Speci men Type: BLOOD SPECIMENOrdering Facility: [facility] Address: [address] [place], [place] [address] Performed By: #### 2 4321-2 ####[facility] LABORATORYCLIA [id number] [place] [address] [place] ESTIMATED GLOMERULAR FILTRATION RATE 69 mL/min/1.73m??? Normal >=60 [facility] Comment on above: Order Comment: Speci isabella Type: BLOOD SPECIMENOrdering Facility: [facility] Address: [address] [place] [address] Result Comment: Isa mated Glomerular Filtration Rate [...] actual GFR. Performed By: #### 2 4321-2 ####[facility]ENTERIA [id number] [place] [address] [place] Glucose [Mass/Vol] 92 mg/dL Normal 74-99 [facility] Comment on above: Order Comment: Rhina mason Type: BLOOD SPECIMENOrdering Facility: [facility] Address: [address] [place] [address] Result Comment: The [place] Diabetes Association (ADA) provides guidance for cutoff [...] Standards of Medical Care in Diabetes 2016, [place] [employer]. Diabetes Care. 2016.39(Suppl 1). Performed By: #### 2 4321-2 ####[facility] LABORATORYCLIA [id number] [place] [id number] [place] Potassium [Moles/Vol] 4.7 mmol/L Normal 3.7-5.1 [facility] Comment on above: Order Comment: Speci men Type: BLOOD SPECIMENOrdering Facility: [facility] Address: [address] [address] Performed By: #### 2 4321-2 ####[facility]ATORYCLIA [id number] [address] [place] [facility] Sodium [Moles/Vol] 136 mmol/L Normal 136-144 [facility] Comment on above: Order Comment: Speci men Type: BLOOD SPECIMENOrdering Facility: [facility] Address: [address] [place] [address] Performed By: #### 2 4321-2 ####[facility] LABORATORYCLIA [id number] [address] [place] [facility] Urea nitrogen [Mass/Vol] 16 mg/dL Normal 7-21 [facility] Comment on above: Order Comment: Speci men Type: BLOOD SPECIMENOrdering Facility: [facility] Address: [address] [place] [address] Performed By: #### 2 4321-2 ####[facility] LABORATORYCLIA [id number] [address] [place] [facility] CBC panel Auto (Bld)on 06-20 Erythrocyte distribution width (RBC) [Ratio] 15.9 % High 11.5-15.0 [facility] Comment on above: Order Comment: Speci men Type: BLOOD SPECIMENOrdering Facility: [facility] Address: [address] [place] [address] Performed By: #### 3 2355-0 #### [facility] CLIA [id number] [address] Hematocrit (Bld) [Volume fraction] 23.9 % Low 36.0-46.0 [facility] Comment on above: Order Comment: Speci men Type: BLOOD SPECIMENOrdering Facility: [facility] Address: [address] [place] [address] Performed By: #### 3 2355-0 #### [facility] CLIA [id number] [address] Hemoglobin (Bld) [Mass/Vol] 7.8 g/dL Low 11.5-15.5 [facility] Comment on above: Order Comment: Speci men Type: BLOOD SPECIMENOrdering Facility: [facility] Address: [address] [place] [address] Performed By: #### 3 2355-0 #### [facility] CLIA [id number] [address] MCH (RBC) [Entitic mass] 30.7 pg Normal 26.0-34.0 [facility] Comment on above: Order Comment: Speci men Type: BLOOD SPECIMENOrdering Facility: [facility] Address: [address] [place] [address] Performed By: #### 3 2355-0 #### [facility] CLIA [id number] [address] MCHC (RBC) [Mass/Vol] 32.6 g/dL Normal 30.5-36.0 [facility] Comment on above: Order Comment: Speci men Type: BLOOD SPECIMENOrdering Facility: [facility] Address: [address] [place] [address] Performed By: #### 3 2355-0 #### [facility] CLIA [id number] [address] MCV (RBC) [Entitic vol] 94.1 fL Normal 80.0-100.0 [facility] Comment on above: Order Comment: Speci men Type: BLOOD SPECIMENOrdering Facility: [facility] Address: [address] [place] [address] Performed By: #### 3 2355-0 #### [facility] CLIA [id number] [address] Nucleated RBC (Bld) [#/Vol] 0.09 10*3/uL High <0.01 [facility] Comment on above: Order Comment: Speci men Type: BLOOD SPECIMENOrdering Facility: [facility] Address: [address] [address] Performed By: #### 3 2355-0 #### [facility] CLIA [id number] [address] [place] Platelet mean volume (Bld) [Entitic vol] 9.8 fL Normal 9.0-12.7 [facility] Comment on above: Order Comment: Speci men Type: BLOOD SPECIMENOrdering Facility: [facility] Address: [address] [address] Performed By: #### 3 2355-0 #### [facility] CLIA [id number] [address] [place] Platelets (Bld) [#/Vol] 233 10*3/uL Normal 150-400 [facility] Comment on above: Order Comment: Speci men Type: BLOOD SPECIMENOrdering Facility: [facility] Address: [address] [address] Performed By: #### 3 2354-0 #### [facility] CLIA [id number] [address] [place] RBC (Bld) [#/Vol] 2.54 10*6/uL Low 3.90-5.20 [facility] Comment on above: Order Comment: Speci men Type: BLOOD SPECIMENOrdering Facility: [facility] Address: [address] [address] Performed By: #### 3 5-0 #### [facility] CLIA [id number] [address] [place] WBC (Bld) [#/Vol] 9.90 10*3/uL Normal 3.70-11.00 [facility] Comment on above: Order Comment: Speci men Type: BLOOD SPECIMENOrdering Facility: [facility] Address: [address] [address] Performed By: #### 3 2355-0 #### [facility] CLIA [id number] 1 [place] [address] [place] CONSULTon 06-20-2022 CONSULT HNO ID: [id number] Author: Christine Edouard MD Service: ? Author [...] DATE OF EXAM: Jun 20 2022 2:57PM [facility] 0530 - CT ABD/PEL W IVCON [...] bilateral pleural effusions, larger on the right. Manager Telemetry (topogram) images: No additional findings. IMPRESSION: Acute sigmoid diverticulitis. No evidence of perforation or diverticular abscess. Consolidation and volume loss with bronchial wall thickening in both lower lobes and right middle lobe. Small bilateral pleural effusions, larger on the right. Diffuse subcutaneous edema of the left flank extending into the thigh. Bilateral renal cortical scarring and small cysts. Atherosclerotic arterial and aortic calcifications. Rerecording Mixer: DEVEN Transcribe Date/Time: Jun 20 2022 3:18P [...] Speci men Type: BLOOD SPECIMEN [facility] Address: [address] [place] [id number] Performed By: #### T SCR #### [facility] CLIA [id number] 1 [place] [address] [facility] 06-19-2022 ALLIED HEALTH HNO ID: [id number] Author: Parul Ryan RN Service: Infection Prevention Author Type: ? Type: Allied Health Filed: 06/19/2022 5:49 PM Note Text: INFECTION PREVENTION NOTE Admission Date: 06/16/2022 Patient meets ?COVID Resolved? criteria and isolation has been discontinued as per [facility] guidance. SIGNATURE: Parul Ryan RN PATIENT NAME: Mel Castillo DATE: June 19, 2022 TIME: 5:49 PM PAGER/CONTACT #: Infection Prevention, [id number] Infection Prevention after hours/weekend pager: [phone] Normal [facility] Basic metabolic 2000 panelon 06-19-2022 Anion gap [Moles/Vol] 5 mmol/L Low 9-18 [facility] Comment on above: Order Comment: Speci men Type: BLOOD SPECIMENOrdering Facility: [facility] Address: [address] [place] [address] Performed By: #### 3 2355-0 #### [facility] CLIA [id number] 1 [place] [address] [place] Calcium [Mass/Vol] 8.1 mg/dL Low 8.5-10.2 [facility] Comment on above: Order Comment: Speci men Type: BLOOD SPECIMENOrdering Facility: [facility] Address: [address] [place] [address] Performed By: #### 3 2355-0 #### [facility] CLIA [id number] 1 [place] [address] [place] Chloride [Moles/Vol] 105 mmol/L Normal 97-105 [facility] Comment on above: Order Comment: Speci men Type: BLOOD SPECIMENOrdering Facility: [facility] Address: [address] [place] [address] Performed By: #### 3 2355-0 #### [facility] CLIA [id number] 1 [place] [address] [place] CO2 [Moles/Vol] 23 mmol/L Normal 22-30 [facility] Comment on above: Order Comment: Speci men Type: BLOOD SPECIMENOrdering Facility: [facility] Address: [address] [address] Performed By: #### 3 2355-0 #### [facility] CLIA [id number] [address] Creatinine [Mass/Vol] 0.94 mg/dL Normal 0.58-0.96 [facility] Comment on above: Order Comment: Speci men Type: BLOOD SPECIMENOrdering Facility: [facility] Address: [address] [address] Performed By: #### 3 2355-0 #### [facility] CLIA [id number] [address] ESTIMATED GLOMERULAR FILTRATION RATE 61 mL/min/1.73m??? Normal >=60 [facility] Comment on above: Order Comment: Speci men Type: BLOOD SPECIMENOrdering Facility: [facility] Address: [address] [place] [address] Result Comment: Isa mated Glomerular Filtration Rate [...] #### 3 2355-0 #### [facility] CLIA [id number] [address] Glucose [Mass/Vol] 115 mg/dL High 74-99 [facility] Comment on above: Order Comment: Speci isabella Type: BLOOD SPECIMENOrdering Facility: [facility] Address: [address] [place] [address] Result Comment: The [place] Diabetes Association (ADA) provides guidance for cutoff [...] Standards of Medical Care in Diabetes 2016, [place] [employer]. Diabetes Care. 2016.39(Suppl 1). Performed By: #### 3 2355-0 #### [facility] CLIA [id number] [address] Potassium [Moles/Vol] 4.4 mmol/L Normal 3.7-5.1 [facility] Comment on above: Order Comment: Speci men Type: BLOOD SPECIMENOrdering Facility: [facility] Address: [address] [place] [address] Performed By: #### 3 2355-0 #### [facility] CLIA [id number] [address] Sodium [Moles/Vol] 133 mmol/L Low 136-144 [facility] Comment on above: Order Comment: Speci men Type: BLOOD SPECIMENOrdering Facility: [facility] Address: [address] [place] [address] Performed By: #### 3 2355-0 #### [facility] CLIA [id number] [address] Urea nitrogen [Mass/Vol] 22 mg/dL High 7-21 [facility] Comment on above: Order Comment: Speci men Type: BLOOD SPECIMENOrdering Facility: [facility] Address: [address] [place] [address] Performed By: #### 3 2355-0 #### [facility] CLIA [id number] [address] CBC panel Auto (Bld)on 06-19 Erythrocyte distribution width (RBC) [Ratio] 15.6 % High 11.5-15.0 [facility] Comment on above: Order Comment: Speci men Type: BLOOD SPECIMENOrdering Facility: [facility] Address: [address] [address] Performed By: #### 5 8410-2 ####[facility] LABORATORYCLIA [id number] [address] Hematocrit (Bld) [Volume fraction] 24.0 % Low 36.0-46.0 [facility] Comment on above: Order Comment: Speci men Type: BLOOD SPECIMENOrdering Facility: [facility] Address: [address] [place] [address] Performed By: #### 5 8410-2 ####[facility] LABORATORYCLIA [id number] [address] [facility] Hemoglobin (Bld) [Mass/Vol] 7.6 g/dL Low 11.5-15.5 [facility] Comment on above: Order Comment: Speci men Type: BLOOD SPECIMENOrdering Facility: [facility] Address: [address] [place] [address] Performed By: #### 5 8410-2 ####[facility] LABORATORYCLIA [id number] [address] STATES [facility] MCH (RBC) [Entitic mass] 29.9 pg Normal 26.0-34.0 [facility] Comment on above: Order Comment: Speci men Type: BLOOD SPECIMENOrdering Facility: [facility] Address: [address] [place] [address] Performed By: #### 5 8410-2 ####[facility] LABORATORYCLIA [id number] [address] [place] MCHC (RBC) [Mass/Vol] 31.7 g/dL Normal 30.5-36.0 [facility] Comment on above: Order Comment: Speci men Type: BLOOD SPECIMENOrdering Facility: [facility] Address: [address] [place] [address] Performed By: #### 5 8410-2 ####[facility] LABORATORYCLIA [id number] [place] [address] [place] MCV (RBC) [Entitic vol] 94.5 fL Normal 80.0-100.0 [facility] Comment on above: Order Comment: Speci men Type: BLOOD SPECIMENOrdering Facility: [facility] Address: [address] [place] [address] Performed By: #### 5 8410-2 ####[facility] LABORATORYCLIA [id number] [place] [address] [place] Nucleated RBC (Bld) [#/Vol] 0.04 10*3/uL High <0.01 [facility] Comment on above: Order Comment: Speci men Type: BLOOD SPECIMENOrdering Facility: [facility] Address: [address] [place] [address] Performed By: #### 5 8410-2 ####[facility] LABORATORYCLIA [id number] [place] [address] [place] Platelet mean volume (Bld) [Entitic vol] 10.0 fL Normal 9.0-12.7 [facility] Comment on above: Order Comment: Speci men Type: BLOOD SPECIMENOrdering Facility: [facility] Address: [address] [address] Performed By: #### 5 8410-2 ####[facility] LABORATORYCLIA [id number] [address] [place] Platelets (Bld) [#/Vol] 219 10*3/uL Normal 150-400 [facility] Comment on above: Order Comment: Speci men Type: BLOOD SPECIMENOrdering Facility: [facility] Address: [address] [address] Performed By: #### 5 8410-2 ####[facility] LABORATORYCLIA [id number] [place] [address] [place] RBC (Bld) [#/Vol] 2.54 10*6/uL Low 3.90-5.20 [facility] Comment on above: Order Comment: Speci men Type: BLOOD SPECIMENOrdering Facility: [facility] Address: [address] [address] Performed By: #### 5 8410-2 ####[facility] LABORATORYCLIA [id number] [address] WBC (Bld) [#/Vol] 8.55 10*3/uL Normal 3.70-11.00 [facility] Comment on above: Order Comment: Speci men Type: BLOOD SPECIMENOrdering Facility: [facility] Address: [address] [place] [address] Performed By: #### 5 8410-2 ####[facility] LABORATORYCLIA [id number] [address] [place] Hemoccult Stl Ql IAon 2021 Lower GI hemoglobin IA Ql (Stl) Positive Abnormal Negative [facility] Comment on above: Order Comment: Speci men Type: BLOOD SPECIMEN [facility] Address: [address] [place] [address] Performed By: #### T SCR #### [facility] CLIA [id number] [address] [place] Hgb Bld-mCncon 06-19-2022 Hemoglobin (Bld) [Mass/Vol] 7.6 g/dL Low 11.5-15.5 [facility] Comment on above: Order Comment: Speci men Type: BLOOD SPECIMENOrdering Facility: [facility] Address: [address] [place] [address] Performed By: #### 7 18-7 ####[facility] LABORATORYCLIA [id number] [address] [place] Magnesium SerPl-mCncon 06-19 Magnesium [Mass/Vol] 1.9 mg/dL Normal 1.7-2.3 [facility] Comment on above: Order Comment: Speci men Type: BLOOD SPECIMENOrdering Facility: [facility] Address: [address] [place] [address] Performed By: #### 3 2355-0 #### [facility] CLIA [id number] [address] [place] OPERATIVE NOon 06-19-2022 OPERATIVE NO HNO ID: [id number] Author: Frida Rodriguez MD Service: Vascular Surgery Author Type: Physician Type: Operative Report Filed: 06/19/2022 2:59 PM Note Text: [facility] - Operative Report MEL GUADARRAMA : 1940 AGE: 81. SEX: F PATIENT TYPE: I HOSP SVC: ICU LOCATION: [facility] ATTENDING PHYSICIAN: DWAYNE ZAIDI COX BRANSON NUMBER: [id number] DATE OF SURGERY/PROCEDURE: 06/16/2022 INCISION/PROCEDURE START TIME: 5:01 PM INCISION CLOSE/PROCEDURE END TIME: 6:58 PM PREOPERATIVE DIAGNOSIS: Left lower extremity deep vein thrombosis. POSTOPERATIVE DIAGNOSIS: Left lower extremity deep vein thrombosis. SURGEON: Frida Rodriguez MD ASSOCIATE MERCHANDISER: Resident, Emanuel Hull SURGERY/PROCEDURE: Venogram with intravascular [...] micropuncture needle and serially upsized to a 5-Hungarian sheath. A venogram was then performed, which [...] time, the sheath was upsized to an 8-Hungarian sheath. An intravascular ultrasound was performed. This [...] unit for further monitoring. Frida Rodriguez MD LM:[id number] Normal [facility] Phosphate SerPl-mCncon 06-19 Phosphate [Mass/Vol] 2.4 mg/dL Low 2.7-4.8 [facility] Comment on above: Order Comment: Speci men Type: BLOOD SPECIMENOrdering Facility: [facility] Address: [address] [place] [address] Performed By: #### 3 2355-0 #### [facility] CLIA [id number] [address] [place] [address] aPTT PPPon 06-19-2022 aPTT Coag (PPP) [Time] 46.9 s High 23.0-32.4 [facility] Comment on above: Order Comment: Speci men Type: BLOOD SPECIMENOrdering Facility: [facility] Address: [address] [place] [address] Performed By: #### 1 4979-9 ####[facility] LABORATORYCLIA [id number] [address] aPTT Coag (PPP) [Time] 83.8 s High 23.0-32.4 [facility] Comment on above: Order Comment: Speci men Type: BLOOD SPECIMENOrdering Facility: [facility] Address: [address] [address] Performed By: #### 3 2355-0 #### [facility] CLIA [id number] [address] [place] [address] [facility] Basic metabolic 2000 panelon 06-18-2022 Anion gap [Moles/Vol] 10 mmol/L Normal 9-18 [facility] Comment on above: Order Comment: Speci men Type: BLOOD SPECIMENOrdering Facility: [facility] Address: [address] [place], [place] [id number] Performed By: #### 2 4321-2, 93590-5, , 2776-07 ####[facility] LABORATORYCLIA [id number] [place] [address] [place] Calcium [Mass/Vol] 8.0 mg/dL Low 8.5-10.2 [facility] Comment on above: Order Comment: Speci men Type: BLOOD SPECIMENOrdering Facility: [facility] Address: [address] [address] Performed By: #### 2 4321-2, 86076-6, , 2776-07 ####[facility] LABORATORYCLIA [id number] [place] [address] [place] Chloride [Moles/Vol] 102 mmol/L Normal 97-105 [facility] Comment on above: Order Comment: Speci men Type: BLOOD SPECIMENOrdering Facility: [facility] Address: [address] [place] [address] Performed By: #### 2 4321-2, 43845-8, , 2776-07 ####[facility] LABORATORYCLIA [id number] [place] [address] [place] CO2 [Moles/Vol] 21 mmol/L Low 22-30 [facility] Comment on above: Order Comment: Speci men Type: BLOOD SPECIMENOrdering Facility: [facility] Address: [address] [address] Performed By: #### 2 4321-2, 11588-0, , 2776-07 ####[facility] LABORATORYCLIA [id number] [place] [address] [place] Creatinine [Mass/Vol] 1.17 mg/dL High 0.58-0.96 [facility] Comment on above: Order Comment: Speci men Type: BLOOD SPECIMENOrdering Facility: [facility] Address: [address] [place] [address] Performed By: #### 2 4321-2, 46601-5, , 2776-07 ####[facility] [id number] [address] [facility] ESTIMATED GLOMERULAR FILTRATION RATE 47 mL/min/1.73m??? Low >=60 [facility] Comment on above: Order Comment: Rhina mason Type: BLOOD SPECIMENOrdering Facility: [facility] Address: [address] [place] [address] Result Comment: Isa mated Glomerular Filtration Rate [...] actual GFR. Performed By: #### 2 4321-2, 54661-9, , 2776-07 ####[facility] [id number] [address] [facility] Glucose [Mass/Vol] 112 mg/dL High 74-99 [facility] Comment on above: Order Comment: Rhina mason Type: BLOOD SPECIMENOrdering Facility: [facility] Address: [address] [place] [address] Result Comment: The [place] Diabetes Association (ADA) provides guidance for cutoff [...] Standards of Medical Care in Diabetes 2016, [place] [employer]. Diabetes Care. 2016.39(Suppl 1). Performed By: #### 2 4321-2, 70542-1, , 2776-07 ####[facility] LABORATORYCLIA [id number] [address] [place] Potassium [Moles/Vol] 4.4 mmol/L Normal 3.7-5.1 [facility] Comment on above: Order Comment: Speci men Type: BLOOD SPECIMENOrdering Facility: [facility] Address: [address] [place] [address] Performed By: #### 2 4321-2, 46917-7, , 2776- ####[facility] LABORATORYCLIA [id number] [address] STATES [facility] Sodium [Moles/Vol] 133 mmol/L Low 136-144 [facility] Comment on above: Order Comment: Speci men Type: BLOOD SPECIMENOrdering Facility: [facility] Address: [address] [place] [address] Performed By: #### 2 4321-2, 44567-0, , 2776- ####[facility] [id number] [address] STATES [facility] Urea nitrogen [Mass/Vol] 25 mg/dL High 7-21 [facility] Comment on above: Order Comment: Speci men Type: BLOOD SPECIMENOrdering Facility: [facility] Address: [address] [place] [address] Performed By: #### 2 4321-2, 09047-7, , 2776-1 ####[facility] LABORATORYCLIA [id number] [address] STATES [facility] CBC panel Auto (Bld)on 06-18 Erythrocyte distribution width (RBC) [Ratio] 15.6 % High 11.5-15.0 [facility] Comment on above: Order Comment: Speci men Type: BLOOD SPECIMENOrdering Facility: [facility] Address: [address] [place] [address] Performed By: #### 5 8410-2 ####[facility] LABORATORYCLIA [id number] [address] Hematocrit (Bld) [Volume fraction] 26.8 % Low 36.0-46.0 [facility] Comment on above: Order Comment: Speci men Type: BLOOD SPECIMENOrdering Facility: [facility] Address: [address] [place] [address] Performed By: #### 5 8410-2 ####[facility] LABORATORYCLIA [id number] [address] STATES [facility] Hemoglobin (Bld) [Mass/Vol] 8.5 g/dL Low 11.5-15.5 [facility] Comment on above: Order Comment: Speci men Type: BLOOD SPECIMENOrdering Facility: [facility] Address: [address] [place] [address] Performed By: #### 5 8410-2 ####[facility] LABORATORYCLIA [id number] [address] [place] MCH (RBC) [Entitic mass] 30.1 pg Normal 26.0-34.0 [facility] Comment on above: Order Comment: Speci men Type: BLOOD SPECIMENOrdering Facility: [facility] Address: [address] [place] [address] Performed By: #### 5 8410-2 ####[facility] LABORATORYCLIA [id number] [address] [place] MCHC (RBC) [Mass/Vol] 31.7 g/dL Normal 30.5-36.0 [facility] Comment on above: Order Comment: Speci men Type: BLOOD SPECIMENOrdering Facility: [facility] Address: [address] [place] [address] Performed By: #### 5 8410-2 ####[facility] LABORATORYCLIA [id number] [address] [place] MCV (RBC) [Entitic vol] 95.0 fL Normal 80.0-100.0 [facility] Comment on above: Order Comment: Speci men Type: BLOOD SPECIMENOrdering Facility: [facility] Address: [address] [place] [address] Performed By: #### 5 8410-2 ####[facility] LABORATORYCLIA [id number] [place] [address] [place] Nucleated RBC (Bld) [#/Vol] 0.03 10*3/uL High <0.01 [facility] Comment on above: Order Comment: Speci men Type: BLOOD SPECIMENOrdering Facility: [facility] Address: [address] [place] [address] Performed By: #### 5 8410-2 ####[facility] LABORATORYCLIA [id number] [address] [place] Platelet mean volume (Bld) [Entitic vol] 10.2 fL Normal 9.0-12.7 [facility] Comment on above: Order Comment: Speci men Type: BLOOD SPECIMENOrdering Facility: [facility] Address: [address] [place] [address] Performed By: #### 5 8410-2 ####[facility] LABORATORYCLIA [id number] [address] [place] Platelets (Bld) [#/Vol] 234 10*3/uL Normal 150-400 [facility] Comment on above: Order Comment: Speci men Type: BLOOD SPECIMENOrdering Facility: [facility] Address: [address] [place] [address] Performed By: #### 5 8410-2 ####[facility] LABORATORYCLIA [id number] [address] [place] RBC (Bld) [#/Vol] 2.82 10*6/uL Low 3.90-5.20 [facility] Comment on above: Order Comment: Speci men Type: BLOOD SPECIMENOrdering Facility: [facility] Address: [address] [place] [address] Performed By: #### 5 8410-2 ####[facility] LABORATORYCLIA [id number] [address] [place] WBC (Bld) [#/Vol] 8.77 10*3/uL Normal 3.70-11.00 [facility] Comment on above: Order Comment: Speci men Type: BLOOD SPECIMENOrdering Facility: [facility] Address: [facility] [address] [place] [id number] Performed By: #### 5 8410-2 ####[facility] LABORATORYCLIA [id number] [place] [address] [place] [facility] CONSULT PROGon 06-18-2022 CONSULT PROG HNO ID: [id number] Author: Jessica Colmenares APRN.MANDREL MAKER Service: Cardiovascular Medicine Author Type: Nurse Practitioner Type: Consult Progress Note Filed: 06/18/2022 2:46 PM Note Text: The ECHO reviewed, EF 59%. No significant valvular abnormalities. Chart reviewed, no further recommendations. Thank you, Jessica Colmenares APRN.MANDREL MAKER Normal [facility] CONSULT PROG HNO ID: [id number] Author: Cirilo Yip RPh Service: Pharmacy Author [...] RPh DATE/TIME: 06/18/2022 12:02 PM [facility] CONSULT PROG HNO ID: [id number] Author: Nimo Arzola MD Service: General Surgery [...] 06/17/22699 - 06/18/2265806/18/22699 - 06/19/22 0659 Shift 7912-3950 1309-4014 1248-6394 24 Hour Total 3340-0549 9741-9367 2062-8213 24 Hour Total INTAKE IV 350 15 365 Volume (mL) 15 15 Volume (mL) (lactated ringers iv infusion) 350 350 Shift Total 350 15 365 OUTPUT Urine 2217 431 6027 Void (ml) 1450 1450 Output ( External Collection Device 06/16/22 2331) 400 400 # of BMs Stool Incontinence 1 x 1 x Number of BMs 1 x 1 x Shift Total 4595 753 4415 Weight (kg) 71.2 71.2 71.2 71.2 71.2 [...] panelon Cholesterol [Mass/Vol] 139 mg/dL Normal <200 [facility] Comment on above: Order Comment: Rhina mason Type: BLOOD SPECIMENOrdering Facility: [facility] Address: [address] [place] [address] Result Comment: <200 mg/dL, Desirable 200-239 mg/dL, Borderline high >239 mg/dL, High Performed By: #### 2 4321-2, 59330-7, , 2776-07 ####[facility] LABORATORYCLIA [id number] [address] [facility] Cholesterol in HDL [Mass/Vol] 56 mg/dL Normal >39 [facility] Comment on above: Order Comment: Rhina mason Type: BLOOD SPECIMENOrdering Facility: [facility] Address: [address] [place] [address] Result Comment: 40-5 9 mg/dL, Acceptable >59 mg/dL, High: Negative risk factor for coronary heart disease <40 mg/dL, Low: Positive risk factor for coronary heart disease Performed By: #### 2 4321-2, 69841-7, , 2776-07 ####[facility] LABORATORYCLIA [id number] [address] [facility] Cholesterol in LDL [Mass/Vol] 64 mg/dL Normal <100 [facility] Comment on above: Order Comment: Rhina mason Type: BLOOD SPECIMENOrdering Facility: [facility] Address: [address] [place] [address] Result Comment: <100 mg/dL, Optimal 100-129 mg/dL, Near optimal/above optimal 130-159 mg/dL, Borderline high 160-189 mg/dL, High >189 mg/dL, Very high Secondary prevention optimal LDL Cholesterol levels are recommended to be < 70 mg/dL Performed By: #### 2 4321-2, 42648-2, , 2776-07 ####[facility] LABORATORYCLIA [id number] [address] [facility] Cholesterol in LDL/Cholesterol in HDL [Mass ratio] 1.14 {ratio} Normal <2.54 [facility] Comment on above: Order Comment: Speci men Type: BLOOD SPECIMENOrdering Facility: [facility] Address: [address] [place] [address] Result Comment: Refe rence: 1. National Cholesterol Education Program ATP III Guideline At-A-Glance Quick Desk Reference: National Heart, Lung, and Blood Snover. National Institutes of Health. 2001: NIH Publication No. 01-3305. 2. An International Atherosclerosis Society position paper: global recommendations for the management of dyslipidemia: executive summary, Atherosclerosis. 2014: 232(2):410-413. Performed By: #### 2 4321-2, 62603-5, , 2776-07 ####[facility] LABORATORYCLIA [id number] [place] [address] [place] Cholesterol in VLDL [Mass/Vol] 19 mg/dL Normal <30 [facility] Comment on above: Order Comment: Samiri men Type: BLOOD SPECIMENOrdering Facility: [facility] Address: [address] [address] Performed By: #### 2 4321-2, 93569-2, , 2776-07 ####[facility] LABORATORYCLIA [id number] [address] [place] Cholesterol non HDL [Mass/Vol] 83 mg/dL Normal <130 [facility] Comment on above: Order Comment: Samiri men Type: BLOOD SPECIMENOrdering Facility: [facility] Address: [address] [address] Result Comment: <130 mg/dL, Optimal 130-159 mg/dL, Near optimal/above optimal 160-189 mg/dL, Borderline high 190-219 mg/dL, High >219 mg/dL, Very high Secondary prevention optimal non HDL Cholesterol levels are recommended to be <100 mg/dL Performed By: #### 2 4321-2, 38104-5, , 2776-07 ####[facility] LABORATORYCLIA [id number] [address] [place] Cholesterol.total/Pastora sterol in HDL [Mass ratio] 2.48 {ratio} Normal <5.10 [facility] Comment on above: Order Comment: Speci men Type: BLOOD SPECIMENOrdering Facility: [facility] Address: [address] [place] [address] Performed By: #### 2 4321-2, 74408-0, , 2776-07 ####[facility] LABORATORYCLIA [id number] [address] [facility] FASTING TIME 8 hrs Normal [facility] Comment on above: Order Comment: Speci men Type: BLOOD SPECIMENOrdering Facility: [facility] Address: [address] [place] [address] Performed By: #### 2 4321-2, 21783-4, , 2776-07 ####[facility] LABORATORYCLIA [id number] [address] [place] Triglyceride [Mass/Vol] 93 mg/dL Normal <150 [facility] Comment on above: Order Comment: Speci men Type: BLOOD SPECIMENOrdering Facility: [facility] Address: [address] [place] [address] Result Comment: <150 mg/dL, Normal 150-199 mg/dL, Borderline high 200-499 mg/dL, High >499 mg/dL, Very high Performed By: #### 2 4321-2, 85179-3, , 2776-07 ####[facility] LABORATORYCLIA [id number] [place] [address] [place] Magnesium SerPl-mCncon 06-18 Magnesium [Mass/Vol] 2.1 mg/dL Normal 1.7-2.3 [facility] Comment on above: Order Comment: Speci men Type: BLOOD SPECIMENOrdering Facility: [facility] Address: [address] [place] [address] Performed By: #### 2 4321-2, 74912-6, 27730-8, 7-1 ####[facility] LABORATORYCLIA [id number] [place] [address] [place] Phosphate SerPl-mCncon 06-18 Phosphate [Mass/Vol] 3.3 mg/dL Normal 2.7-4.8 [facility] Comment on above: Order Comment: Speci men Type: BLOOD SPECIMENOrdering Facility: [facility] Address: [address] [place] [address] Performed By: #### 2 4321-2, 09078-0, , 2776- ####[facility] LABORATORYCLIA [id number] [address] [place] aPTT PPPon 06-18-2022 aPTT Coag (PPP) [Time] 37.2 s High 23.0-32.4 [facility] Comment on above: Order Comment: Speci men Type: BLOOD SPECIMENOrdering Facility: [facility] Address: [address] [place] [address] Performed By: #### 9 4500-6 #### [facility] CLIA [id number] [address] [place] [address] [place] aPTT Coag (PPP) [Time] 58.8 s High 23.0-32.4 [facility] Comment on above: Order Comment: Speci men Type: BLOOD SPECIMENOrdering Facility: [facility] Address: [address] [place] [address] Performed By: #### 1 4979-9 ####[facility] LABORATORYCLIA [id number] [address] [place] aPTT Coag (PPP) [Time] 127.7 s High 23.0-32.4 [facility] Comment on above: Order Comment: Speci men Type: BLOOD SPECIMEN [facility] Address: [place] [address] Performed By: #### T SCR #### [facility] CLIA [id number] [address] [facility] ALLIED HEALTHon 06-17-2022 ALLIED HEALTH HNO ID: [id number] Author: RT [place](R) Service: Radiology Author Type: [...] 9:30 AM Normal [facility] ALLIED [facility] HNO ID: [id number] Author: Jeremías Bragg II Service: Infection Prevention [...] TIME: 8:27 AM PAGER/CONTACT #: Infection Prevention, [id number] Infection Prevention after hours/weekend pager: [phone] Normal [facility] ANES POSTPROC EVALon 022 ANES POSTPROC EVAL HNO ID: [id number] Author: Larry Moss MD Service: Anesthesiology Author Type: Anesthesiologist Type: Anesthesia Postprocedure Evaluation Filed: 06/17/2022 6:51 AM Note Text: POST ANESTHESIA EVALUATION NOTE : 1940 Procedure Summary Date: 06/16/22 Room / Location: [address] [place] Anesthesia Start: 1609 Anesthesia Stop: [...] June 17, 2022 TIME: 6:50 AM CSN: [id number] Normal [facility] Basic metabolic 2000 panelon 06-17-2022 Anion gap [Moles/Vol] 9 mmol/L Normal 9-18 [facility] Comment on above: Order Comment: Speci men Type: BLOOD SPECIMENOrdering Facility: [facility] Address: [address] [place] [address] Performed By: #### 2 4321-2, , 2776-07 ####[facility] LABORATORYCLIA [id number] [place] [address] [place] Calcium [Mass/Vol] 7.9 mg/dL Low 8.5-10.2 [facility] Comment on above: Order Comment: Speci men Type: BLOOD SPECIMENOrdering Facility: [facility] Address: [address] [place] [address] Performed By: #### 2 4321-2, , 2776-07 ####[facility] LABORATORYCLIA [id number] [place] [address] [place] Chloride [Moles/Vol] 107 mmol/L High 97-105 [facility] Comment on above: Order Comment: Speci men Type: BLOOD SPECIMENOrdering Facility: [facility] Address: [address] [address] Performed By: #### 2 4321-2, , 2776-07 ####[facility] LABORATORYCLIA [id number] [place] [address] [place] CO2 [Moles/Vol] 21 mmol/L Low 22-30 [facility] Comment on above: Order Comment: Speci men Type: BLOOD SPECIMENOrdering Facility: [facility] Address: [address] [address] Performed By: #### 2 4321-2, 14293-92776-07 ####[facility] LABORATORYCLIA [id number] [place] [address] [place] Creatinine [Mass/Vol] 0.99 mg/dL High 0.58-0.96 [facility] Comment on above: Order Comment: Rhina mason Type: BLOOD SPECIMENOrdering Facility: [facility] Address: [address] [address] Performed By: #### 2 4321-2, , 2776-07 ####[facility] LABORATORYCLIA [id number] [place] [address] [place] ESTIMATED GLOMERULAR FILTRATION RATE 57 mL/min/1.73m??? Low >=60 [facility] Comment on above: Order Comment: Rhina mason Type: BLOOD SPECIMENOrdering Facility: [facility] Address: [address] [place] [address] Result Comment: Isa mated Glomerular Filtration Rate [...] 2 4321-2, , 2776-07 ####[facility] LABORATORYCLIA [id number] [place] [address] [place] [facility] Glucose [Mass/Vol] 84 mg/dL Normal 74-99 [facility] Comment on above: Order Comment: Rhina isabella Type: BLOOD SPECIMENOrdering Facility: [facility] Address: [address] [address] Result Comment: The [place] Diabetes Association (ADA) provides guidance for cutoff [...] Standards of Medical Care in Diabetes 2016, [place] [employer] Association. Diabetes Care. 2016.39(Suppl 1). Performed By: #### 2 4321-2, , 2776-07 ####[facility] LABORATORYCLIA [id number] [place] [address] [place] Potassium [Moles/Vol] 4.3 mmol/L Normal 3.7-5.1 [facility] Comment on above: Order Comment: Speci isabella Type: BLOOD SPECIMENOrdering Facility: [facility] Address: [address] [address] Performed By: #### 2 4321-2, , 2776-07 ####[facility] [id number] [address] [place] [facility] Sodium [Moles/Vol] 137 mmol/L Normal 136-144 [facility] Comment on above: Order Comment: Speci isabella Type: BLOOD SPECIMENOrdering Facility: [facility] Address: [address] [place] [address] Performed By: #### 2 4321-2, , 2776-07 ####[facility] LABORATORYCLIA [id number] [address] [place] Urea nitrogen [Mass/Vol] 27 mg/dL High 7-21 [facility] Comment on above: Order Comment: Speci men Type: BLOOD SPECIMENOrdering Facility: [facility] Address: [address] [address] Performed By: #### 2 4321-2, , 2776-07 ####[facility] LABORATORYCLIA [id number] [address] [place] CBC panel Auto (Bld)on 06-17 Erythrocyte distribution width (RBC) [Ratio] 15.5 % High 11.5-15.0 [facility] Comment on above: Order Comment: Speci men Type: BLOOD SPECIMENOrdering Facility: [facility] Address: [address] [place] [address] Performed By: #### 5 8410-2 ####[facility] LABORATORYCLIA [id number] [address] [facility] Hematocrit (Bld) [Volume fraction] 26.6 % Low 36.0-46.0 [facility] Comment on above: Order Comment: Speci men Type: BLOOD SPECIMENOrdering Facility: [facility] Address: [address] [place] [address] Performed By: #### 5 8410-2 ####[facility] LABORATORYCLIA [id number] [address] [facility] Hemoglobin (Bld) [Mass/Vol] 8.5 g/dL Low 11.5-15.5 [facility] Comment on above: Order Comment: Speci men Type: BLOOD SPECIMENOrdering Facility: [facility] Address: [address] [place] [address] Performed By: #### 5 8410-2 ####[facility] LABORATORYCLIA [id number] [address] [facility] MCH (RBC) [Entitic mass] 30.0 pg Normal 26.0-34.0 [facility] Comment on above: Order Comment: Speci men Type: BLOOD SPECIMENOrdering Facility: [facility] Address: [address] [address] Performed By: #### 5 8410-2 ####[facility] LABORATORYCLIA [id number] [address] [place] MCHC (RBC) [Mass/Vol] 32.0 g/dL Normal 30.5-36.0 [facility] Comment on above: Order Comment: Speci men Type: BLOOD SPECIMENOrdering Facility: [facility] Address: [address] [place] [address] Performed By: #### 5 8410-2 ####[facility] LABORATORYCLIA [id number] [address] [facility] MCV (RBC) [Entitic vol] 94.0 fL Normal 80.0-100.0 [facility] Comment on above: Order Comment: Speci men Type: BLOOD SPECIMENOrdering Facility: [facility] Address: [address] [place] [address] Performed By: #### 5 8410-2 ####[facility] LABORATORYCLIA [id number] [address] [place] Nucleated RBC (Bld) [#/Vol] 0.02 10*3/uL High <0.01 [facility] Comment on above: Order Comment: Speci men Type: BLOOD SPECIMENOrdering Facility: [facility] Address: [address] [place] [address] Performed By: #### 5 8410-2 ####[facility] LABORATORYCLIA [id number] [address] Platelet mean volume (Bld) [Entitic vol] 9.5 fL Normal 9.0-12.7 [facility] Comment on above: Order Comment: Speci men Type: BLOOD SPECIMENOrdering Facility: [facility] Address: [address] [place] [address] Performed By: #### 5 8410-2 ####[facility] LABORATORYCLIA [id number] [address] Platelets (Bld) [#/Vol] 223 10*3/uL Normal 150-400 [facility] Comment on above: Order Comment: Speci men Type: BLOOD SPECIMENOrdering Facility: [facility] Address: [address] [place] [address] Performed By: #### 5 8410-2 ####[facility] LABORATORYCLIA [id number] [address] [place] RBC (Bld) [#/Vol] 2.83 10*6/uL Low 3.90-5.20 [facility] Comment on above: Order Comment: Speci men Type: BLOOD SPECIMENOrdering Facility: [facility] Address: [place] [address] Performed By: #### 5 8410-2 ####[facility] LABORATORYCLIA [id number] [place] [id number] [facility] WBC (Bld) [#/Vol] 8.61 10*3/uL Normal 3.70-11.00 [facility] Comment on above: Order Comment: Speci men Type: BLOOD SPECIMENOrdering Facility: [facility] Address: [address] [place] [place] [id number] Performed By: #### 5 8410-2 ####[facility] LABORATORYCLIA [id number] [place] [id number] [facility] CONSULTon 06-17-2022 CONSULT HNO ID: [id number] Author: García Monique MD Service: Cardiovascular Medicine Author Type: Physician Type: Consults Filed: 06/17/2022 11:14 AM Note Text: [facility]IOVASC[facility] INTENSIVE [facility]ARE [facility]IT ([facility]) History AND Physical Note PATIENT NAME: Mel Castillo DATE: June 17, 2022 ADMITTED FOR: Subjective HPI Ms. Mel Castillo is a 81 year old female with PMH: - Paroxysmal Afib - GERD - HTN - Hypothyroidism Patient presented to [facility] on 06/16/2022 for evaluation of left [...] her covid symptoms. States doesnot see a armed security professional and has no other past cardiac history [...] Procedure Component Value Units Date/Time Expedited COVID19 [[id number]] (Abnormal) Collected: 06/16/22826 Order Status: Completed Specimen: [...] CONSULT PROGon 06-17-2022 CONSULT PROG HNO ID: [id number] Author: Dominique Lauren RPh Service: Pharmacy Author [...] any questions or concerns. SIGNATURE: Dominique Lauren [facility] DATE/TIME: 06/17/2022 3:47 PM Normal [facility] CONSULT PROG HNO ID: [id number] Author: Emanuel Hull MD Service: General Surgery [...] questions or concerns Tue-Tue 6a-5p please page [phone]. After 5pm and on Weekends and Holidays, please page [phone] if in ICU or [phone] if on [...] 0659 06/17/22 07 - 06/18/22 0659 Shift 8297-1441 0814-1200 4847-5918 24 Hour Total 6922-6781 6221-1268 8545-7453 24 Hour Total INTAKE IV 600 1000 [...] Estimated Blood loss 100 100 Shift Total 510 825 3478 Weight (kg) 72.6 71.2 71.2 71.2 71.2 [...] Hospital Date of service: 06/17/2022 10:27:19 AM [facility] Ordering physician: GARCÍA MONIQUE Indication: Nonsustained atrial fibrillation Technologist: Glendy Pena [facility] Interpreting physician: Nando Costa MD PATIENT: Name: [...] * * Final * * * CC Space [employer] Medical Image : [id number] Normal [facility] Magnesium SerPl-mCncon 06-17 Magnesium [Mass/Vol] 2.1 mg/dL Normal 1.7-2.3 [facility] Comment on above: Order Comment: Rhina mason Type: BLOOD SPECIMENOrdering Facility: [facility] Address: [address] [place], [place] [address] Performed By: #### 2 4321-2, , 2776-07 ####[facility] LABORATORYCLIA [id number] [place] [address] [place] Phosphate SerPl-mCncon 06-17 Phosphate [Mass/Vol] 3.8 mg/dL Normal 2.7-4.8 [facility] Comment on above: Order Comment: Rhina mason Type: BLOOD SPECIMENOrdering Facility: [facility] Address: [address] [place], [place] [address] Performed By: #### 2 4321-2, , 2776-07 ####[facility] LABORATORYCLIA [id number] [address] [place] [facility] XR CHEST 1V FRONTALon 2021 XR [...] Comparison: None. RESULT: Lines, tubes, and devices: security monitor leads. Hardware noted in the proximal [...] in both lungs suspicious for multifocal pneumonia. Rerecording Mixer: DEVEN Transcribe Date/Time: Jun 17 2022 10:41A Dictated by : DI MINER MD This examination was interpreted and the report reviewed and electronically signed by: DI MINER MD on Jun 17 2022 10:43AM EST [id number] Normal [facility] aPTT PPPon 06-17-2022 aPTT Coag (PPP) [Time] 48.4 s High 23.0-32.4 [facility] Comment on above: Order Comment: Speci men Type: BLOOD SPECIMENOrdering Facility: [facility] Address: [address] [address] Performed By: #### 9 4500-6 #### [facility] CLIA [id number] [address] aPTT Coag (PPP) [Time] 29.4 s Normal 23.0-32.4 [facility] Comment on above: Order Comment: Speci men Type: BLOOD SPECIMENOrdering Facility: [facility] Address: [address] [address] Performed By: #### 3 2355-0 #### [facility] CLIA [id number] [address] aPTT Coag (PPP) [Time] 125.1 s High 23.0-32.4 [facility] Comment on above: Order Comment: Speci men Type: BLOOD SPECIMEN [facility] Address: [address] [place] [address] Performed By: #### T SCR #### [facility] CLIA [id number] [address] aPTT Coag (PPP) [Time] s High 23.0-32.4 [facility] Comment on above: Order Comment: Speci men Type: BLOOD SPECIMENOrdering Facility: [facility] Address: [address] [place] [address] Performed By: #### 3 2355-0 #### [facility] CLIA [id number] [address] aPTT Coag (PPP) [Time] 28.5 s Normal 23.0-32.4 [facility] Comment on above: Order Comment: Speci men Type: BLOOD SPECIMENOrdering Facility: [facility] Address: [address] [place] [address] Performed By: #### 1 4979-9 ####[facility] LABORATORYCLIA [id number] [address] ANES PRE-OPon 06-16-2022 ANES PRE-OP HNO ID: [id number] Author: Olu Winn MD Service: Anesthesiology Author [...] June 16, 2022 TIME: 3:44 PM CSN: [id number] [facility] BRIEF OP NOTon 06-16-2022 BRIEF OP NOT HNO ID: [id number] Author: Emanuel Hull MD Service: General Surgery [...] BRIEF OPERATIVE / PROCEDURE NOTE LOG ID: [id number] Surgery/Procedure Date: 06/16/2022 Incision/Procedure Start Time: 5:01 PM Incision Close/Procedure End Time: 6:58 PM Surgeon(s)/Proceduralis t(s) and Supervisor Hard Candy(s): Surgeon(s) and Role: * Frida Rodriguez MD [...] and on weekends, please page surgery on-call [phone] (RNF) or [phone] (ICU) SIGNATURE: Emanuel Hull MD PATIENT NAME: Mel Castillo DATE: June 16, 2022 TIME: 7:19 PM PAGER/CONTACT #: [phone] Normal [facility] CBC W Auto Differential pane l (Bld)on 06-16-2022 Anisocytosis Ql (Bld) Present Normal [facility] Comment on above: Order Comment: Speci men Type: BLOOD SPECIMENOrdering Facility: [facility] Address: [address] [place] [address] Performed By: #### 5 7021-8 ####[facility] LABORATORYCLIA [id number] [place] [address] [place] Basophils (Bld) [#/Vol] 0.00 10*3/uL Normal <0.11 [facility] Comment on above: Order Comment: Speci men Type: BLOOD SPECIMENOrdering Facility: [facility] Address: [address] [address] Performed By: #### 5 7021-8 ####[facility] LABORATORYCLIA [id number] [place] [address] [place] Basophils/100 WBC (Bld) 0.0 % Normal [facility] Comment on above: Order Comment: Speci men Type: BLOOD SPECIMENOrdering Facility: [facility] Address: [address] [place] [address] Performed By: #### 5 7021-8 ####[facility] LABORATORYCLIA [id number] [address] [facility] Differential cell count method Nom (Bld) Manual Normal [facility] Comment on above: Order Comment: Speci men Type: BLOOD SPECIMENOrdering Facility: [facility] Address: [address] [place] [address] Performed By: #### 5 7021-8 ####[facility] LABORATORYCLIA [id number] [address] [place] Eosinophils (Bld) [#/Vol] 0.00 10*3/uL Normal <0.46 [facility] Comment on above: Order Comment: Speci men Type: BLOOD SPECIMENOrdering Facility: [facility] Address: [address] [place] [address] Performed By: #### 5 7021-8 ####[facility] LABORATORYCLIA [id number] [address] Eosinophils/100 WBC (Bld) 0.0 % Normal [facility] Comment on above: Order Comment: Speci men Type: BLOOD SPECIMENOrdering Facility: [facility] Address: [address] [place] [address] Performed By: #### 5 7021-8 ####[facility] LABORATORYCLIA [id number] [address] [place] Erythrocyte distribution width (RBC) [Ratio] 15.6 % High 11.5-15.0 [facility] Comment on above: Order Comment: Speci men Type: BLOOD SPECIMENOrdering Facility: [facility] Address: [address] [place] [address] Performed By: #### 5 7021-8 ####[facility]ORATORYCLIA [id number] [address] [place] Hematocrit (Bld) [Volume fraction] 35.3 % Low 36.0-46.0 [facility] Comment on above: Order Comment: Speci men Type: BLOOD SPECIMENOrdering Facility: [facility] Address: [address] [place] [address] Performed By: #### 5 7021-8 ####[facility] LABORATORYCLIA [id number] [place] [address] [place] Hemoglobin (Bld) [Mass/Vol] 11.4 g/dL Low 11.5-15.5 [facility] Comment on above: Order Comment: Speci men Type: BLOOD SPECIMENOrdering Facility: [facility] Address: [address] [place] [address] Performed By: #### 5 7021-8 ####[facility] LABORATORYCLIA [id number] [address] [place] Lymphocytes (Bld) [#/Vol] 1.27 10*3/uL Normal 1.00-4.00 [facility] Comment on above: Order Comment: Speci men Type: BLOOD SPECIMENOrdering Facility: [facility] Address: [address] [place] [address] Performed By: #### 5 7021-8 ####[facility] LABORATORYCLIA [id number] [address] [place] Lymphocytes/100 WBC (Bld) 8.0 % Normal [facility] Comment on above: Order Comment: Speci men Type: BLOOD SPECIMENOrdering Facility: [facility] Address: [address] [place] [address] Performed By: #### 5 7021-8 ####[facility] LABORATORYCLIA [id number] [address] [place] MCH (RBC) [Entitic mass] 30.2 pg Normal 26.0-34.0 [facility] Comment on above: Order Comment: Speci men Type: BLOOD SPECIMENOrdering Facility: [facility] Address: [address] [place] [address] Performed By: #### 5 7021-8 ####[facility] LABORATORYCLIA [id number] [address] [place] MCHC (RBC) [Mass/Vol] 32.3 g/dL Normal 30.5-36.0 [facility] Comment on above: Order Comment: Speci men Type: BLOOD SPECIMENOrdering Facility: [facility] Address: [address] [place] [address] Performed By: #### 5 7021-8 ####[facility] LABORATORYCLIA [id number] [address] [place] MCV (RBC) [Entitic vol] 93.6 fL Normal 80.0-100.0 [facility] Comment on above: Order Comment: Speci men Type: BLOOD SPECIMENOrdering Facility: [facility] Address: [address] [place] [address] Performed By: #### 5 7021-8 ####[facility] LABORATORYCLIA [id number] [address] STATES OF [facility] Monocytes (Bld) [#/Vol] 1.74 10*3/uL High <0.87 [facility] Comment on above: Order Comment: Speci men Type: BLOOD SPECIMENOrdering Facility: [facility] Address: [address] [place] [address] Performed By: #### 5 7021-8 ####[facility]ORATORYCLIA [id number] [address] Monocytes/100 WBC (Bld) 11.0 % Normal [facility] Comment on above: Order Comment: Speci men Type: BLOOD SPECIMENOrdering Facility: [facility] Address: [address] [place] [address] Performed By: #### 5 7021-8 ####[facility]ORATORYCLIA [id number] [address] [place] MYELO% 4.0 % Normal [facility] Comment on above: Order Comment: Speci men Type: BLOOD SPECIMENOrdering Facility: [facility] Address: [address] [address] Performed By: #### 5 7021-8 ####[facility] LABORATORYCLIA [id number] [address] [place] Neutrophils (Bld) [#/Vol] 12.02 10*3/uL High 1.45-7.50 [facility] Comment on above: Order Comment: Speci men Type: BLOOD SPECIMENOrdering Facility: [facility] Address: [address] [place] [address] Performed By: #### 5 7021-8 ####[facility]ATORYCLIA [id number] [address] Neutrophils/100 WBC (Bld) 76.0 % Normal [facility] Comment on above: Order Comment: Speci men Type: BLOOD SPECIMENOrdering Facility: [facility] Address: [address] [place] [address] Performed By: #### 5 7021-8 ####[facility]ATORYCLIA [id number] [address] [place] Nucleated RBC (Bld) [#/Vol] 10*3/uL Normal <0.01 [facility] Comment on above: Order Comment: Speci men Type: BLOOD SPECIMENOrdering Facility: [facility] Address: [address] [place] [address] Performed By: #### 5 7021-8 ####[facility]ATORYCLIA [id number] [address] Nucleated RBC/100 WBC (Bld) [Ratio] 0.0 /100 WBC Normal [facility] Comment on above: Order Comment: Speci men Type: BLOOD SPECIMENOrdering Facility: [facility] Address: [address] [place] [address] Performed By: #### 5 7021-8 ####[facility] LABORATORYCLIA [id number] [address] [place] Platelet mean volume (Bld) [Entitic vol] 9.7 fL Normal 9.0-12.7 [facility] Comment on above: Order Comment: Speci men Type: BLOOD SPECIMENOrdering Facility: [facility] Address: [address] [address] Performed By: #### 5 7021-8 ####[facility]ORATORYCLIA [id number] [address] [place] Platelets (Bld) [#/Vol] 373 10*3/uL Normal 150-400 [facility] Comment on above: Order Comment: Speci men Type: BLOOD SPECIMENOrdering Facility: [facility] Address: [address] [address] Performed By: #### 5 7021-8 ####[facility]ORATORYCLIA [id number] [address] Platelets Estimate (Bld) [#/Vol] Adequate Normal [facility] Comment on above: Order Comment: Speci men Type: BLOOD SPECIMENOrdering Facility: [facility] Address: [address] [place] [address] Performed By: #### 5 7021-8 ####[facility]ORATORYCLIA [id number] [address] PROMYL% 1.0 % Normal [facility] Comment on above: Order Comment: Speci men Type: BLOOD SPECIMENOrdering Facility: [facility] Address: [address] [address] Performed By: #### 5 7021-8 ####[facility]ORATORYCLIA [id number] [address] [place] RBC (Bld) [#/Vol] 3.77 10*6/uL Low 3.90-5.20 [facility] Comment on above: Order Comment: Speci men Type: BLOOD SPECIMENOrdering Facility: [facility] Address: [address] [place] [address] Performed By: #### 5 7021-8 ####[facility]ORYCLIA [id number] [address] RED CELL MORPH Normal Normal [facility] Comment on above: Order Comment: Speci men Type: BLOOD SPECIMENOrdering Facility: [facility] Address: [address] [place] [address] Performed By: #### 5 7021-8 ####[facility]ORATORYCLIA [id number] [address] SPHEROCYTES Few Normal [facility] Comment on above: Order Comment: Speci men Type: BLOOD SPECIMENOrdering Facility: [facility] Address: [address] [address] Performed By: #### 5 7021-8 ####[facility]ORATORYCLIA [id number] [address] WBC (Bld) [#/Vol] 15.82 10*3/uL High 3.70-11.00 [facility] Comment on above: Order Comment: Speci men Type: BLOOD SPECIMENOrdering Facility: [facility] Address: [address] [place] [address] Result Comment: Resu lts checked and verified. Performed By: #### 5 7021-8 ####[facility]ORATORYCLIA [id number] [address] CBC panel Auto (Bld)on 06-16 Erythrocyte distribution width (RBC) [Ratio] 15.5 % High 11.5-15.0 [facility] Comment on above: Order Comment: Speci men Type: BLOOD SPECIMENOrdering Facility: [facility] Address: [address] [place] [address] Performed By: #### 5 8410-2 ####[facility]ORATORYCLIA [id number] [address] Hematocrit (Bld) [Volume fraction] 30.1 % Low 36.0-46.0 [facility] Comment on above: Order Comment: Speci men Type: BLOOD SPECIMENOrdering Facility: [facility] Address: [address] [place] [address] Performed By: #### 5 8410-2 ####[facility]ORATORYCLIA [id number] [address] Hemoglobin (Bld) [Mass/Vol] 9.8 g/dL Low 11.5-15.5 [facility] Comment on above: Order Comment: Speci men Type: BLOOD SPECIMENOrdering Facility: [facility] Address: [address] [place] [address] Performed By: #### 5 8410-2 ####[facility]ORATORYCLIA [id number] [address] MCH (RBC) [Entitic mass] 30.8 pg Normal 26.0-34.0 [facility] Comment on above: Order Comment: Speci men Type: BLOOD SPECIMENOrdering Facility: [facility] Address: [address] [place] [address] Performed By: #### 5 8410-2 ####[facility]ORATORYCLIA [id number] [address] MCHC (RBC) [Mass/Vol] 32.6 g/dL Normal 30.5-36.0 [facility] Comment on above: Order Comment: Speci men Type: BLOOD SPECIMENOrdering Facility: [facility] Address: [address] [place] [address] Performed By: #### 5 8410-2 ####[facility]ORATORYCLIA [id number] [address] MCV (RBC) [Entitic vol] 94.7 fL Normal 80.0-100.0 [facility] Comment on above: Order Comment: Speci men Type: BLOOD SPECIMENOrdering Facility: [facility] Address: [address] [place] [address] Performed By: #### 5 8410-2 ####[facility]ATORYCLIA [id number] [address] Nucleated RBC (Bld) [#/Vol] 0.08 10*3/uL High <0.01 [facility] Comment on above: Order Comment: Speci men Type: BLOOD SPECIMENOrdering Facility: [facility] Address: [address] [place] [address] Performed By: #### 5 8410-2 ####[facility]ORATORYCLIA [id number] [address] [place] Platelet mean volume (Bld) [Entitic vol] 9.6 fL Normal 9.0-12.7 [facility] Comment on above: Order Comment: Speci men Type: BLOOD SPECIMENOrdering Facility: [facility] Address: [address] [address] Performed By: #### 5 8410-2 ####[facility]ORATORYCLIA [id number] [address] [place] Platelets (Bld) [#/Vol] 277 10*3/uL Normal 150-400 [facility] Comment on above: Order Comment: Speci men Type: BLOOD SPECIMENOrdering Facility: [facility] Address: [address] [address] Performed By: #### 5 8410-2 ####[facility]ORATORYCLIA [id number] [place] [address] [place] RBC (Bld) [#/Vol] 3.18 10*6/uL Low 3.90-5.20 [facility] Comment on above: Order Comment: Speci men Type: BLOOD SPECIMENOrdering Facility: [facility] Address: [address] [address] Performed By: #### 5 8410-2 ####[facility]ORATORYCLIA [id number] [place] [address] [place] WBC (Bld) [#/Vol] 10.43 10*3/uL Normal 3.70-11.00 [facility] Comment on above: Order Comment: Speci men Type: BLOOD SPECIMENOrdering Facility: [facility] Address: [address] [place] [address] Performed By: #### 5 8410-2 ####[facility]ORATORYCLIA [id number] [address] STATES OF [facility] CONSULTon 06-16-2022 CONSULT HNO ID: [id number] Author: Iman Saldana DO Service: General Surgery [...] DATE OF EXAM: Jun 16 2022 7:33AM [facility] 0122 - CTA ABD/PEL/LOWER EXT W [...] lobe consolidation may represent pneumonia or atelectasis. Rerecording Mixer: PSCB Transcribe Date/Time: Jun 16 2022 7:54A [...] Comment: Speci men Type: BLOOD SPECIMENOrdering Facility: [facility] Address: [address] [place] [address] Performed By: #### 3 3959-8, 71734-7, 08299-0, 57258-8 ####[facility]ORATORYCLIA [id number] [address] STATES OF [facility] ALP [Catalytic activity/Vol] 111 U/L Normal 34-123 [facility] Comment on above: Order Comment: Speci men Type: BLOOD SPECIMENOrdering Facility: [facility] Address: [address] [place] [address] Performed By: #### 3 3959-8, 33216-0, 15530-3, 67542-0 ####[facility]ORATORYCLIA [id number] [address] [place] [facility] ALT With P-5'-P [Catalytic activity/Vol] 20 U/L Normal 7-38 [facility] Comment on above: Order Comment: Speci men Type: BLOOD SPECIMENOrdering Facility: [facility] Address: [address] [place] [address] Performed By: #### 3 3959-8, 27444-3, 14337-4, 70444-7 ####[facility]ORATORYCLIA [id number] [address] STATES [facility] Anion gap [Moles/Vol] 17 mmol/L Normal 9-18 [facility] Comment on above: Order Comment: Speci men Type: BLOOD SPECIMENOrdering Facility: [facility] Address: [address] [place] [address] Performed By: #### 3 3959-8, 75956-8, 70176-0, 96420-9 ####[facility]ATORYCLIA [id number] [address] [place] AST With P-5'-P [Catalytic activity/Vol] 13 U/L Normal 13-35 [facility] Comment on above: Order Comment: Speci men Type: BLOOD SPECIMENOrdering Facility: [facility] Address: [address] [address] Performed By: #### 3 3959-8, 43070-8, 38067-0, 63019-6 ####[facility]ORATORYCLIA [id number] [place] [address] [place] Bilirubin [Mass/Vol] 0.3 mg/dL Normal 0.2-1.3 [facility] Comment on above: Order Comment: Speci men Type: BLOOD SPECIMENOrdering Facility: [facility] Address: [address] [place] [address] Performed By: #### 3 3959-8, 98468-7, , 70290-9 ####[facility]ORATORYCLIA [id number] [place] [address] [place] Calcium [Mass/Vol] 9.1 mg/dL Normal 8.5-10.2 [facility] Comment on above: Order Comment: Speci men Type: BLOOD SPECIMENOrdering Facility: [facility] Address: [address] [place] [address] Performed By: #### 3 3959-8, 30989-5, 32533-4, 42455-0 ####[facility]ORATORYCLIA [id number] [place] [address] [place] Chloride [Moles/Vol] 104 mmol/L Normal 97-105 [facility] Comment on above: Order Comment: Speci men Type: BLOOD SPECIMENOrdering Facility: [facility] Address: [address] [address] Performed By: #### 3 3959-8, 42864-4, 09769-9, 61163-3 ####[facility]ORATORYCLIA [id number] [place] [address] [place] CO2 [Moles/Vol] 18 mmol/L Low 22-30 [facility] Comment on above: Order Comment: Speci men Type: BLOOD SPECIMENOrdering Facility: [facility] Address: [address] [address] Performed By: #### 3 3959-8, 53300-8, 42766-6, 23591-3 ####[facility]CLIA [id number] [address] [place] Creatinine [Mass/Vol] 1.14 mg/dL High 0.58-0.96 [facility] Comment on above: Order Comment: Speci men Type: BLOOD SPECIMENOrdering Facility: [facility] Address: [address] [address] Performed By: #### 3 3959-8, 05999-3, 13875-4, 30035-6 ####[facility]IA [id number] [address] [place] ESTIMATED GLOMERULAR FILTRATION RATE 48 mL/min/1.73m??? Low >=60 [facility] Comment on above: Order Comment: Rhina mason Type: BLOOD SPECIMENOrdering Facility: [facility] Address: [address] [address] Result Comment: Isa mated Glomerular Filtration Rate [...] actual GFR. Performed By: #### 3 3959-8, 76914-2, 62948-5, 79987-8 ####[facility] LABORATORYIA [id number] [address] [place] Glucose [Mass/Vol] 122 mg/dL High 74-99 [facility] Comment on above: Order Comment: Speci men Type: BLOOD SPECIMENOrdering Facility: [facility] Address: [address] [address] Result Comment: The [place] [employer] (ADA) provides guidance for cutoff [...] Standards of Medical Care in Diabetes 2016, [place] [employer]. Diabetes Care. 2016.39(Suppl 1). Performed By: #### 3 3959-8, 82737-3, 15827-8, 70905-8 ####[facility]ORATORYCLIA [id number] [place] [address] [place] Potassium [Moles/Vol] 4.4 mmol/L Normal 3.7-5.1 [facility] Comment on above: Order Comment: Speci [facility] Type: BLOOD SPECIMENOrdering Facility: [facility] Address: [address] [place] [address] Performed By: #### 3 3959-8, 84378-3, 46201-6, 65285-4 ####[facility]ERCLIA [id number] [place] [address] [place] Protein [Mass/Vol] 6.6 g/dL Normal 6.3-8.0 [facility] Comment on above: Order Comment: Speci [facility] Type: BLOOD SPECIMENOrdering Facility: [facility] Address: [address] [place] [address] Performed By: #### 3 3959-8, 91062-6, 26137-5, 68395-0 ####[facility]ATORYCLIA [id number] [place] [address] [place] Sodium [Moles/Vol] 139 mmol/L Normal 136-144 [facility] Comment on above: Order Comment: Speci men Type: BLOOD SPECIMENOrdering Facility: [facility] Address: [address] [place] [address] Performed By: #### 3 3959-8, 86766-0, 58895-8, 10980-4 ####[facility] LABORATORYCLIA [id number] [place] [address] [place] Urea nitrogen [Mass/Vol] 35 mg/dL High 7-21 [facility] Comment on above: Order Comment: Speci men Type: BLOOD SPECIMENOrdering Facility: [facility] Address: [address] [place], [place] [id number] Performed By: #### 3 3959-8, 58733-8, 46226-7, 16068-9 ####[facility] LABORATORYCLIA [id number] [place] [address] [facility] ED NOTEon 06-16-2022 ED NOTE HNO ID: [id number] Author: Adela Cortez RN Service: Emergency Medicine Author Type: Registered Nurse Type: ED Notes Filed: 06/16/2022 11:27 AM Note Text: Pts aptt is >139. Nongram states to hold dose and let MD know. Vascular resident made aware, MD ordered to hold dose x1 hour and then redraw aptt. Normal [facility] ED NOTE HNO ID: [id number] Author: Nancy Scott RN Service: Emergency Medicine Author Type: Registered Nurse Type: ED Notes Filed: 06/16/2022 7:13 AM Note Text: CT notified that pt has been moved to new room and is ready for testing [facility] ED NOTE HNO ID: [id number] Author: Marleen Blank RN Service: ? Author Type: Registered Nurse Type: ED Notes Filed: 06/16/2022 6:59 AM Note Text: Bed: 19-ED Expected date: Expected time: Means of arrival: Comments: Normal [facility] ED NOTE HNO ID: [id number] Author: Nancy Scott RN Service: Emergency Medicine Author Type: Registered Nurse Type: ED Notes Filed: 06/16/2022 6:44 AM Note Text: CT delayed due to pt needing to move rooms because of bed bugs. Normal [facility] ED NOTE HNO ID: [id number] Author: Nancy Scott RN Service: Emergency Medicine Author Type: Registered Nurse Type: ED Notes Filed: 06/16/2022 3:09 AM Note Text: CT form faxed, ptt sent Normal [facility] ED NOTE HNO ID: [id number] Author: Nancy Scott RN Service: Emergency Medicine Author Type: Registered Nurse Type: ED Notes Filed: 06/16/2022 3:02 AM Note Text: US notified Normal [facility] ED NOTE HNO ID: [id number] Author: Nancy Scott RN Service: Emergency Medicine Author Type: Registered Nurse Type: ED Notes Filed: 06/16/2022 2:48 AM Note Text: CT notified [facility] ED NOTE HNO ID: [id number] Author: Nancy Scott RN Service: Emergency Medicine Author Type: Registered Nurse Type: ED Notes Filed: 06/16/2022 2:43 AM Note Text: Labs sent Normal [facility] ED NOTE HNO ID: [id number] Author: Davian Chen RN Service: ? Author Type: Registered Nurse Type: ED Notes Filed: 06/16/2022 2:06 AM Note Text: Bed: 15-ED Expected date: Expected time: Means of arrival: Comments: squad [facility] ED PROV NOTEon 06-16-2022 ED PROV NOTE HNO ID: [id number] Author: Vanessa Trevizo DO Service: [facility] Medicine [facility] HNO ID: [id number] Author: Vanessa Trevizo DO Service: Emergency Medicine [...] QTC Calculation(Bazett) : 386 ms Calculated R Sumter : 46 degrees Calculated T Sum[place] : -40 degrees ATRIAL FIBRILLATION WITH RAPID VENTRICULAR RESPONSE ABNORMAL QRS-T ANGLE, CONSIDER PRIMARY T WAVE ABNORMALITY ABNORMAL ECG NO PREVIOUS ECGS AVAILABLE Confirmed by MD LEONE CAROL ([id number]) on 06/16/2022 6:43:12 PM NAME : MEL GUADARRAMA PID : [id number] : 1940 Gender : Female Race : ORD : Procedure Date : Jun 16 2022 07:37:07 Edit Date : Jun 16 2022 18:43:17 Diagnosis: ATRIAL FIBRILLATION WITH RAPID VENTRICULAR RESPONSE ABNORMAL QRS-T ANGLE, CONSIDER PRIMARY T WAVE ABNORMALITY ABNORMAL ECG NO PREVIOUS ECGS AVAILABLE Confirmed by MD LEONE CAROL ([id number]) on 06/16/2022 6:43:12 PM Test Reason : Location : 4 : AKED 19 Overread By : MD LEONE CAROL Edited By : MD LEONE CAROL Referred By : , Acquired by : PATRICIA MOE Normal [facility] HIGH SENSITIVITY TROPONIN T (INITIAL)on 06-16-2022 HIGH SENSITIVITY CHRISTOPHER 34 ng/L High <12 [facility] Comment on above: Order Comment: Rhina mason Type: BLOOD SPECIMENOrdering Facility: [facility] Address: [address] [place] [address] Result Comment: When assessing risk for acute [...] #### 3 2355-0 #### [facility] CLIA [id number] [address] [place] HIGH SENSITIVITY TROPONIN T (SECOND)on 06-16-2022 HIGH SENSITIVITY CHRISTOPHER 28 ng/L High <12 [facility] Comment on above: Order Comment: Rhina mason Type: BLOOD SPECIMENOrdering Facility: [facility] Address: [address] [place] [address] Result Comment: When assessing risk for acute [...] 30 day MACE. Performed By: #### L [id number] ####[facility] LABORATORYCLIA [id number] [place] [address] [place] HIGH SENSITIVITY TROPONIN T (THIRD) 3 HRS AFTER INITIALon 06-16-2022 HIGH SENSITIVITY CHRISTOPHER 23 ng/L High <12 [facility] Comment on above: Order Comment: Rhina mason Type: BLOOD SPECIMENOrdering Facility: [facility] Address: [address] [place] [address] Result Comment: When assessing risk for acute [...] 30 day MACE. Performed By: #### L [id number] ####[facility] LABORATORYCLIA [id number] [place] [address] [place] HISTORY PHYSICALon HISTORY PHYSICAL HNO ID: [id number] Author: Kristen Jones APRN.CNP Service: Hospital Medicine Author Type: Nurse Practitioner Type: HANDP Filed: 06/16/2022 1:27 PM Note Text: DEPARTMENT OF HOSPITAL MEDICINE HISTORY AND PHYSICAL EXAM SERVICE DATE: 06/16/2022 SERVICE TIME: 12:02 PM Primary Care Physician: Dr. Evans Admitting Provider: Kristen Jones APRN.CNP NIGHT AND WEEKEND COVERAGE: After 7pm, please call cross cover pager #[phone] Subjective CHIEF COMPLAINT: Left leg pain, discoloration [...] this patient has 2 charts. Mel Garcia [phone] and Mel Castillo [phone]. PAST MEDICAL HISTORY Diagnosis Date Acute bacterial [...] chest pain Gastrointestinal: + diarrhea x 1 [employer] Genitourinary: Denies dysuria Musculoskeletal: + left [...] not included)... Normal [facility] Magnesium [facility]on 06-16 Magnesium [Mass/Vol] 2.4 mg/dL High 1.7-2.3 [facility] Comment on above: Order Comment: Speci men Type: BLOOD SPECIMENOrdering Facility: [facility] Address: [address] [place] [address] Performed By: #### 3 3959-8, 27993-7, 05303-5, 32710-7 ####[facility] LABORATORYCLIA [id number] [address] [place] NT-proBNP [facility] Natriuretic peptide.B prohormone N-Terminal [Mass/Vol] 4156 pg/mL High <450 [facility] Comment on above: Order Comment: Speci men Type: BLOOD SPECIMEN [facility] Facility[facility] Address: [address] [place] [address] Performed By: #### T SCR #### [facility] CLIA [id number] 1 [place] [address] [place] NURSING PROGon 06-16-2022 NURSING PROG HNO ID: [id number] Author: Kayden José RN Service: Trauma Author [...] Comment: Rhina mason Type: BLOOD SPECIMENOrdering Facility: [facility] Address: [address] [place] [address] Result Comment: Mayra min K Antagonist (VKA) Therapeutic Range: INR 2 to 3 (Target INR of 2.5) Note: For patients treated with VKA drugs, such as warfarin, the [place] [employer] 2012 Guideline recommends [...] Chest 2012, 141:7S-47S Daren RA, et al. [facility] 2017, 70: 252-289 Performed By: #### 3 4528-0, 96623-6 ####[facility] LABORATORYCLIA [id number] [place] [address] [place] [facility] PT Coag (PPP) [Time] 11.3 s Normal 9.7-13.0 [facility] Comment on above: Order Comment: Rhina mason Type: BLOOD SPECIMENOrdering Facility: [facility] Address: [address] [id number] Performed By: #### 3 4528-0, 82213-0 ####[facility] LABORATORYCLIA [id number] [address] [place] Procalcitonin SerPl-mCncon 1 08-16-2021 Procalcitonin [Mass/Vol] 0.19 ng/mL High <0.09 [facility] Comment on above: Order Comment: Speci men Type: BLOOD SPECIMEN [facility] Address: [place] [address] Result Comment: For a guided interpretation of test results, please visit the Change in Procalcitonin Calculator, [email or web address]. Performed By: #### T SCR #### [facility] CLIA [id number] SARS-CoV-2 RNA Resp Ql OXANA+p robeon 06-16-2022 SARS-CoV-2 (COVID-19) RNA OXANA+probe Ql (Resp) COVID 19 RESULT: SARS-CoV-2 (Agent of COVID-19) Detected by RT-PCR or equivalent method. This test has been authorized by FDA under an Emergency Use Authorization (EUA). Normal [facility] Comment on above: Performed By: #### 9 4500-6 #### [facility] CLIA [id number] [address] [place] [address] OF [facility] US DVT LOWER LTon 06-16-2022 US [...] Torres MD on 0516 via verbal communication. Rerecording Mixer: DEVEN Transcribe Date/Time: Jun 16 2022 5:07A Dictated by : SKIP NOEL MD This examination was interpreted and the report reviewed and electronically signed by: SKIP NOEL MD on Jun 16 2022 5:17AM EST [id number] Normal [facility] aPTT PPPon 06-16-2022 aPTT Coag (PPP) [Time] 74.2 s High 23.0-32.4 [facility] Comment on above: Order Comment: Rhina mason Type: BLOOD SPECIMENOrdering Facility: [facility] Address: [address] [place] [address] Performed By: #### 1 4979-9 ####[facility] LABORATORYCLIA [id number] [address] STATES OF [facility] aPTT Coag (PPP) [Time] 134.7 s High 23.0-32.4 [facility] Comment on above: Order Comment: Rhina mason Type: BLOOD SPECIMENOrdering Facility: [facility] Address: [address] [place] [address] Performed By: #### 1 4979-9 ####[facility] LABORATORYCLIA [id number] [address] aPTT Coag (PPP) [Time] s High 23.0-32.4 [facility] Comment on above: Order Comment: Specrobson isabella Type: BLOOD SPECIMENOrdering Facility: [facility] Address: [address] [address] Performed By: #### 1 4979-9 ####[facility] [id number] [address] aPTT Coag (PPP) [Time] 21.7 s Low 23.0-32.4 [facility] Comment on above: Order Comment: Rhina isabella Type: BLOOD SPECIMENOrdering Facility: [facility] Address: [address] [address] Performed By: #### 3 4528-0, 06958-0 ####[facility] D[facility]ERCLIA [id number] [address] CULTURE AND STAIN - TISSUEon 03-10-2020 [...] 0.12 S Rifampin(AGATA) <= 0.5 S Normal [facility] Comment on above: Performed By: #### C XTIS #### [address] [place] [address] [address] [place], [place] [id number] #### C/DAMIÁN #### [address] [address] [address] [place], [place] CR Finger(s) Min 2 Views Rig hton 03-07-2020 CR Finger(s) Min 2 Views Right Patient Name: MEL POP Diagnostic Radiology Exam Date/Time 03/06/2020 10:30:00 EDT Exam CR Finger(s) Min 2 Views Right Ordering Physician MD GUSTAVO, JAYLA Stoll Accession Number [id number] CPT4 Codes 25242 () Reason For Exam pain Report Right [...] was communicated to JAYLA MCMAHAN via the Motorpaneer Critical Result system on 03/07/2020 8:07 PM EDT, Message ID [id number]. Report Dictated on Final Dictating Physician: MD PERRY DIANE Signed Date and Time: 03/07/2020 8:07 pm Signed by: MD PERRY DIANE Transcribed Date and Time: 03/07/2020 8:08 Normal [facility] CULTURE ANAEROBEon 0 CULTURE ANAEROBE CULTURE ANAEROBE --> Status: F No growth of anaerobes at 5 days. STAIN GRAM --> Status: F Few polymorphonuclear cells/lpf. No organisms seen. No organisms seen. Normal [facility] Comment on above: Performed By: #### C XTIS #### [facility] [address] [place] [address] [facility] [address], [place] [id number] #### C/DAMIÁN #### [facility] [address] [place] [address] Vital Signs Date Time Vital Sign Value Performing Clinician Facility 03-15-2025 11:06-0400 Body height 160 cm Andre Berry MD Work Phone: [facility] 03-15-2025 11:06-0400 Body mass index (BMI) [Ratio] 27.1 kg/m2 Andre Berry MD Work Phone: [facility] 03-15-2025 11:06-0400 Body temperature 97.39 [degF] Andre Berry MD Work Phone: [facility] 03-15-2025 11:06-0400 Body weight 69.4 kg Andre Berry MD Work Phone: [facility] Comment on above: unable to stand for ht and wt today 03-15-2025 11:06-0400 Diastolic blood pressure 48 mm[Hg] Andre Berry MD Work Phone: [facility] 03-15-2025 11:06-0400 Heart rate 45 /min Andre Berry MD Work Phone: [facility] 03-15-2025 11:06-0400 SaO2% (BldA) [Mass fraction] 100 % Andre Berry MD Work Phone: [facility] 03-15-2025 11:06-0400 Systolic blood pressure 97 mm[Hg] Andre Berry MD Work Phone: [facility] 12-24-2024 14:45-0400 Body mass index (BMI) [Ratio] 27.1 kg/m2 Kristyn Blankenship MD Work Phone: [facility] 12-24-2024 14:45-0400 Body weight 69.4 kg Kristyn Blankenship MD Work Phone: [facility] 12-05-2024 10:20-0400 Body height 160 cm Kristyn Blankenship MD Work Phone: [facility] 12-05-2024 10:20-0400 Body mass index (BMI) [Ratio] 29.23 kg/m2 Kristyn Blankenship MD Work Phone: [facility] 12-05-2024 10:20-0400 Body weight 74.84 kg Kristyn Blankenship MD Work Phone: [facility] 12-05-2024 10:20-0400 Diastolic blood pressure 78 mm[Hg] Kristyn Blankenship MD Work Phone: [facility] 12-05-2024 10:20-0400 Heart rate 78 /min Kristyn Blankenship MD Work Phone: [facility] 12-05-2024 10:20-0400 Respiratory rate 18 /min Kristyn Blankenship MD Work Phone: [facility] 12-05-2024 10:20-0400 SaO2% (BldA) [Mass fraction] 94 % Kristyn Blankenship MD Work Phone: [facility] 12-05-2024 10:20-0400 Systolic blood pressure 102 mm[Hg] Kristyn Blankenship MD Work Phone: [facility] 11-22-2024 13:45-0400 Diastolic blood pressure 54 mm[Hg] Kristyn Blankenship MD Work Phone: [facility] 11-22-2024 13:45-0400 Heart rate 58 /min Kristyn Blankenship MD Work Phone: [facility] 11-22-2024 13:45-0400 Respiratory rate 18 /min Kristyn Blankenship MD Work Phone: [facility] 11-22-2024 13:45-0400 SaO2% (BldA) [Mass fraction] 95 % Kristyn Blankenship MD Work Phone: [facility] 11-22-2024 13:45-0400 Systolic blood pressure 139 mm[Hg] Kristyn Blankenship MD Work Phone: [facility] 11-22-2024 13:15-0400 Body temperature 97.11 [degF] Kristyn Blankenship MD Work Phone: [facility] 11-22-2024 08:25-0400 Body height 160 cm Kristyn Blankenship MD Work Phone: [facility] 11-22-2024 08:25-0400 Body mass index (BMI) [Ratio] 29.23 kg/m2 Kristyn Blankenship MD Work Phone: [facility] 11-22-2024 08:25-0400 Body weight 74.84 kg Kristyn Blankenship MD Work Phone: [facility] 11-05-2024 15:42-0400 Body height 160 cm Kristyn Blankenship MD Work Phone: [facility] 11-05-2024 15:42-0400 Body mass index (BMI) [Ratio] 29.23 kg/m2 Kristyn Blankenship MD Work Phone: [facility] 11-05-2024 15:42-0400 Body weight 74.84 kg Kristyn Blankenship MD Work Phone: [facility] 11-05-2024 15:42-0400 Diastolic blood pressure 64 mm[Hg] Kristyn Blankenship MD Work Phone: [facility] 11-05-2024 15:42-0400 Heart rate 65 /min Kristyn Blankenship MD Work Phone: [facility] 11-05-2024 15:42-0400 Respiratory rate 18 /min Kristyn Blankenship MD Work Phone: [facility] 11-05-2024 15:42-0400 SaO2% (BldA) [Mass fraction] 98 % Kristyn Blankenship MD Work Phone: [facility] 11-05-2024 15:42-0400 Systolic blood pressure 122 mm[Hg] Kristyn Blankenship MD Work Phone: [facility] 08-22-2024 10:32-0500 Body height 160 cm Henok Darlyn PA-C Work Phone: [facility] 08-22-2024 10:32-0500 Body mass index (BMI) [Ratio] 29.23 kg/m2 Henok Darlyn PA-C Work Phone: [facility] 08-22-2024 10:32-0500 Body weight 74.84 kg Henok Darlyn PA-C Work Phone: [facility] 08-22-2024 10:32-0500 Diastolic blood pressure 62 mm[Hg] Henok Darlyn PA-C Work Phone: [facility] 08-22-2024 10:32-0500 Respiratory rate 18 /min Henok Darlyn PA-C Work Phone: [facility] 08-22-2024 10:32-0500 Systolic blood pressure 104 mm[Hg] Henok Darlyn PA-C Work Phone: [facility] 08-16-2024 07:19-0500 Body temperature 97.59 [degF] Mariana King DO Work Phone: [facility] 08-16-2024 07:19-0500 Diastolic blood pressure 66 mm[Hg] Mariana King DO Work Phone: [facility] 08-16-2024 07:19-0500 Heart rate 85 /min Mariana King DO Work Phone: [facility] 08-16-2024 07:19-0500 Respiratory rate 18 /min Mariana King DO Work Phone: [facility] 08-16-2024 07:19-0500 SaO2% (BldA) [Mass fraction] 94 % Mariana King DO Work Phone: [facility] 08-16-2024 07:19-0500 Systolic blood pressure 135 mm[Hg] Mariana King DO Work Phone: [facility] 08-03-2024 08:32-0500 Body height 162 cm Mariana King DO Work Phone: [facility] 08-03-2024 08:32-0500 Body mass index (BMI) [Ratio] 28.58 kg/m2 Mariana King DO Work Phone: [facility] 08-03-2024 08:32-0500 Body weight 75 kg Mariana King DO Work Phone: [facility] 07-07-2024 06:03-0500 Body temperature 97.7 [degF] Wm Aracelirakola DO Work Phone: [facility] 07-07-2024 06:03-0500 Diastolic blood pressure 67 mm[Hg] Wm Mudrakola DO Work Phone: [facility] [employer] 07-07-2024 06:03-0500 Heart rate 69 /min Wm Mudrakola DO Work Phone: [facility] 07-07-2024 06:03-0500 Respiratory rate 12 /min Wm Mudrakola DO Work Phone: [facility] 07-07-2024 06:03-0500 SaO2% (BldA) [Mass fraction] 94 % Wm Mudrakola DO Work Phone: [facility] [employer] 07-07-2024 06:03-0500 Systolic blood pressure 149 mm[Hg] Wm Mudrakola DO Work Phone: [facility] 07-05-2024 10:00-0500 Body height 162.6 cm Wm Aracelirakola DO Work Phone: [facility] 07-05-2024 10:00-0500 Body mass index (BMI) [Ratio] 27.46 kg/m2 Wm Mudrakola DO Work Phone: [facility] 07-05-2024 10:00-0500 Body weight 72.58 kg Wm Nunes DO Work Phone: [facility] 05-14-2024 15:34-0400 Body height 162.6 cm Jared Evans MD Work Phone: [facility] 05-14-2024 15:34-0400 Body mass index (BMI) [Ratio] 25.23 kg/m2 Jared Evans MD Work Phone: [facility] 05-14-2024 15:34-0400 Body weight 66.68 kg Jared Evans MD Work Phone: [facility] 04-25-2024 13:39-0400 Body height 162.6 cm Henok Mary PA-C Work Phone: [facility] 04-25-2024 13:39-0400 Body mass index (BMI) [Ratio] 25.23 kg/m2 Henok Hernandez PA-C Work Phone: [facility] 04-25-2024 13:39-0400 Body weight 66.68 kg Henok Pipernes PA-C Work Phone: [facility] 04-25-2024 13:39-0400 Diastolic blood pressure 66 mm[Hg] Henok Fannin PA-C Work Phone: [facility] 04-25-2024 13:39-0400 Heart rate 98 /min Henok Hernandez PA-C Work Phone: [facility] 04-25-2024 13:39-0400 Respiratory rate 18 /min Henok Pipernes PA-C Work Phone: [facility] 04-25-2024 13:39-0400 SaO2% (BldA) [Mass fraction] 95 % Henok Fannin PA-C Work Phone: [facility] 04-25-2024 13:39-0400 Systolic blood pressure 110 mm[Hg] Henok Hernandez PA-C Work Phone: [facility] 04-13-2024 08:04-0400 Heart rate 92 /min Winifred Cornell DO Work Phone: [facility] 04-13-2024 07:49-0400 Body temperature 97.2 [degF] Winifred Cornell DO Work Phone: [facility] 04-13-2024 07:49-0400 Diastolic blood pressure 89 mm[Hg] Winifred Cornell DO Work Phone: [facility] 04-13-2024 07:49-0400 Respiratory rate 20 /min Winifred Cornell DO Work Phone: [facility] 04-13-2024 07:49-0400 SaO2% (BldA) [Mass fraction] 98 % Winifred Cornell DO Work Phone: [facility] 04-13-2024 07:49-0400 Systolic blood pressure 156 mm[Hg] Winifred Cornell DO Work Phone: [facility] 04-03-2024 17:52-0400 Body height 162.6 cm Winifred Cornell DO Work Phone: [facility] 04-03-2024 17:52-0400 Body mass index (BMI) [Ratio] 27.38 kg/m2 Winifred Cornell DO Work Phone: [facility] 04-03-2024 17:52-0400 Body weight 72.35 kg Winifred Cornell DO Work Phone: [facility] 07-27-2023 14:23-0500 Body height 162.6 cm Ming Weinberg MD Work Phone: [facility] 07-27-2023 14:23-0500 Body mass index (BMI) [Ratio] 27.29 kg/m2 Ming Weinberg MD Work Phone: [facility] 07-27-2023 14:23-0500 Body weight 72.12 kg Ming Weinberg MD Work Phone: [facility] 05-14-2022 15:01-0400 Diastolic blood pressure 84 mm[Hg] Jared Velazquez PA-C Work Phone: [facility] 05-14-2022 15:01-0400 Systolic blood pressure 154 mm[Hg] Jared Velazquez PA-C Work Phone: [facility] 05-14-2022 14:32-0400 Body height 162.6 cm Jared Velazquez PA-C Work Phone: [facility] 05-14-2022 14:32-0400 Body weight 72.58 kg Jared Velazquez PA-C Work Phone: [facility] 05-14-2022 14:32-0400 Heart rate 71 /min Jared Velazquez PA-C Work Phone: [facility] 05-14-2022 14:32-0400 Respiratory rate 16 /min Jared Velazquez PA-C Work Phone: [facility] 05-14-2022 14:32-0400 SaO2% (BldA) [Mass fraction] 98 % Jared Velazquez PA-C Work Phone: [facility] 03-07-2020 09:57-0400 Body Temperature 98.71 [degF] [facility] [place] 03-07-2020 09:57-0400 BP Diastolic 64 mm[Hg] [facility] [place] 03-07-2020 09:57-0400 BP Systolic 161 mm[Hg] [facility] [place] 03-07-2020 09:57-0400 Pulse (Heart Rate) 77 /min [facility] [place] 03-07-2020 09:57-0400 Pulse Oximetry 96 % [facility] , [place] 03-07-2020 08:32-0400 Respiratory Rate 14 /min [facility] [employer], [place] 02-08-2020 20:50-0400 Body Temperature 97.5 [degF] [facility] [place] 02-08-2020 20:50-0400 BP Diastolic 81 mm[Hg] [facility] [place] , [place] 02-08-2020 20:50-0400 BP Systolic 193 mm[Hg] Maryuri King [facility] , [place] 02-08-2020 20:50-0400 Pulse (Heart Rate) 68 /min [facility], [place] 02-08-2020 20:50-0400 Pulse Oximetry 97 % [facility] , [place] 02-08-2020 20:50-0400 Respiratory Rate 16 /min [facility] [place], [place] Encounters Encounter Date Encounter Type Care Provider Facility Start: 05-27-2025 ambulatory Megan EVERETT Faci lity:[facility] Start: 05-13-2025 ambulatory Megan EVERETT Faci lity:[facility] Start: 05-09-2025 ambulatory Megan EVERETT Faci lity:[facility] Start: 05-06-2025 ambulatory Megan EVERETT Faci lity:[facility] Start: 04-29-2025 End: 04-29-2025 ambulatory Megan EVERETT Facility:[facility] Start: 04-04-2025 End: 04-04-2025 ambulatory Megan EVERETT Facility:[facility] Start: 04-02-2025 ambulatory Megan Luannevictoriano EVERETT Faci lity:[facility] Start: 03-28-2025 End: 03-28-2025 ambulatory Megan EVERETT Facility:[facility] Start: 03-15-2025 End: 03-15-2025 Office outpatient visit 25 minutes Ander Patel MD Work Phone: [facility] Comment on above: Acute deep vein thro mbosis (DVT) of proximal vein of lower extremity, unspecified laterality (HCC) (Primary Dx) Start: 03-15-2025 End: 03-15-2025 ambulatory MEGAN LUANNEVICTORIANO [facility] Start: 03-04-2025 End: 03-04-2025 ambulatory Megan EVERETT Facility:[facility] Start: 02-25-2025 ambulatory Megan EVERETT Faci lity:[facility] Start: 02-18-2025 ambulatory Megan EVERETT Faci lity:[facility] Start: 02-15-2025 ambulatory Megan EVERETT Faci lity:[facility] Start: 02-11-2025 End: 02-11-2025 ambulatory Megan Luannesaros O[facility] Facility:[facility] Start: 02-07-2025 End: 02-07-2025 ambulatory Megan Luannesaros OLS Facility:[facility] Start: 02-04-2025 ambulatory Megan Luannesaros OLS Faci lity:[facility] Start: 01-31-2025 ambulatory Megan Luannesaros OLS Faci lity:[facility] Start: 01-28-2025 ambulatory Megan Luannesaros OLS Faci lity:[facility] Start: 01-25-2025 ambulatory Megan Stroudsaros OLS Faci lity:[facility] Start: 01-22-2025 End: 01-23-2025 ambulatory Megan Luannesaros OLS Facility:[facility] Start: 01-21-2025 End: 01-21-2025 ambulatory Megan Luannesaros OLS Facility:[facility] Start: 01-17-2025 End: 01-17-2025 ambulatory Megan Luannesaros OLS Facility:[facility] Start: 01-16-2025 End: 01-16-2025 ambulatory Megan Luannesaros OLS Facility:[facility] Start: 01-15-2025 End: 01-15-2025 ambulatory Megan Luannesaros OLS Facility:[facility] Start: 01-07-2025 ambulatory Megan Luannesaros OLS Faci lity:[facility] Start: 01-02-2025 End: 01-02-2025 Orders Only [facility] Comment on above: 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) Right retinal detach ment (Primary Dx); Hemorrhagic choroidal detachment of right eye; Pseudophakia, right eye Start: 12-24-2024 End: 12-24-2024 ambulatory MEGAN MONTOYA [facility] Start: 12-24-2024 End: 12-24-2024 Office outpatient visit 15 minutes Kristyn Blankenship MD Work Phone: [facility] [place] Comment on above: Aftercare following surgery of the circulatory system (Primary Dx); PAD (peripheral artery disease) ([facility]) Start: 12-13-2024 End: 02-12-2025 Follow-up encounter Shivani Rayo CNP Work Phone: [facility] [place] Comment on above: Vascular US lower ex tremity arterial duplex right with MICHELLE Start: 12-13-2024 End: 12-13-2024 ambulatory MEGAN TIDWELLFOZIA [facility] Start: 12-13-2024 End: 12-13-2024 Subsequent hospital visit by physician Kristyn Blankenship MD Work Phone: [facility] Comment on above: Skin ulcer of toe of right foot, limited to breakdown of skin (HCC); PAD (peripheral artery disease) (HCC); Aftercare following surgery of the circulatory system Start: 12-05-2024 End: 12-05-2024 ambulatory [facility] Start: 12-05-2024 End: 12-05-2024 Office outpatient visit 10 minutes Kristyn Blankenship MD Work Phone: [facility] [place] Comment on above: Skin ulcer of toe of right foot, limited to breakdown of skin (HCC) (Primary Dx); PAD (peripheral artery disease) (HCC); Aftercare following surgery of the circulatory system Start: 11-22-2024 End: 11-22-2024 ambulatory [facility] Start: 11-22-2024 End: 11-22-2024 Subsequent hospital visit by physician Kristyn Blankenship MD [facility] Start: 11-15-2024 End: 11-15-2024 ambulatory Megan Montoya [facility] Facility:[facility] Start: 11-09-2024 End: 11-13-2024 ambulatory Henok Lantigua PA-C Work Phone: [facility] [place] Comment on above: 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) (Primary Dx) Pre-op evaluation (P rimary Dx) Start: 11-09-2024 End: 11-13-2024 Preprocedural examination done Henok Lantigua PA-C Work Phone: [facility] Work Phone: Start: 11-05-2024 End: 11-05-2024 ambulatory [facility] Start: 11-05-2024 End: 11-05-2024 Office outpatient visit 25 minutes Kristyn Blankenship MD Work Phone: [facility] Comment on above: PAD (peripheral aidee ry disease) (HCC) (Primary Dx); Skin ulcer of toe of right foot, limited to breakdown of skin (HCC) Start: 10-08-2024 End: 10-08-2024 ambulatory Megan EVERETT [facility] Work Phone: Start: 10-08-2024 End: 10-08-2024 Departed Referred Megan BISWAS Start: 10-08-2024 Registered Referred Megan BISWAS Start: 10-08-2024 End: 10-08-2024 ambulatory Megan EVERETT Facility:[facility] Start: 10-01-2024 End: 10-01-2024 Patient encounter procedure Savana Lopez MD Work Phone: Ophthalmology Comment on above: 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); Right retinal detachment; Postoperative eye state; Pseudophakia, right eye; Subluxation of right lens Start: 10-01-2024 End: 10-01-2024 ambulatory SAVANA LOPEZ Facility:[facility] Start: 09-17-2024 End: 09-17-2024 ambulatory Megan EVERETT [facility] Work Phone: Start: 09-17-2024 End: 09-17-2024 Departed Referred Megan BISWAS Start: 09-17-2024 Registered Referred Megan BISWAS Start: 09-17-2024 End: 09-17-2024 ambulatory Megan EVERETT Facility:[facility] Start: 09-10-2024 End: 09-10-2024 ambulatory eMgan EVERETT [facility] Work Phone: Start: 09-10-2024 End: 09-10-2024 Departed Referred Megan BISWAS Start: 09-10-2024 Registered Referred Megan BISWAS Start: 09-10-2024 End: 09-10-2024 ambulatory Megan EVERETT Facility:[facility] Start: 09-05-2024 End: 09-05-2024 ambulatory SAVANA LOPEZ Facility:[facility] Start: 09-05-2024 End: 09-05-2024 Patient encounter procedure Savana Lopez MD Work Phone: Ophthalmology Comment on above: Postoperative eye st ate; Hemorrhagic choroidal detachment of right eye; Pseudophakia, right eye; Subluxation of right lens Start: 09-03-2024 End: 09-03-2024 ambulatory Megan EVERETT [facility] Work Phone: Start: 09-03-2024 End: 09-03-2024 Departed Referred Megan BISWAS Start: 09-03-2024 Registered Referred Megan BISWAS Start: 09-03-2024 End: 09-03-2024 ambulatory Megan EVERETT Facility:[facility] Start: 08-22-2024 End: 08-22-2024 ambulatory [facility] Start: 08-22-2024 End: 08-22-2024 Office outpatient visit 15 minutes Henok Lantigua PA-C Work Phone: [facility] [place] Comment on above: Acute deep vein thro mbosis (DVT) of iliac vein of right lower extremity (HCC) (Primary Dx); PAD (peripheral artery disease) (HCC) Start: 08-20-2024 End: 08-20-2024 ambulatory Megan Luannevictoriano EVERETT [facility] Work Phone: Start: 08-20-2024 End: 08-20-2024 Departed Referred Megan BISWAS Start: 08-20-2024 End: 08-20-2024 ambulatory Megan EVERETT Facility:[facility] Start: 08-03-2024 End: 08-03-2024 Subsequent hospital visit by physician [facility] Exam Room [address] [facility] [address] Comment on above: Arrived Start: 08-03-2024 End: 08-16-2024 ambulatory [facility] Start: 08-03-2024 End: 08-16-2024 Emergency department patient visit Mariana Eduardo GARZA Work Phone: [facility]N Comment on above: Aspiration pneumonit is (CMS/HCC) ([facility]) (Primary Dx); Vomiting and diarrhea; LORENZA (acute kidney injury) (HCC) Start: 08-01-2024 End: 08-01-2024 ambulatory SAVANA A MAMMO Facility:[facility] Start: 08-01-2024 End: 08-01-2024 Patient [...] Start: 07-27-2024 ambulatory SAVANA A MAMMO Facility: [facility] Start: 07-23-2024 End: 07-23-2024 ambulatory SAVANA A MAMMO Facility:[facility] Start: 07-23-2024 End: 07-23-2024 Patient [...] 07-12-2024 Evaluation and management of inpatient SELF Facility:[facility] Start: 07-12-2024 End: 07-12-2024 Orders [...] 07-09-2024 Evaluation and management of inpatient SELF Facility:[facility] Start: 07-09-2024 End: 07-09-2024 Unlisted [...] End: 07-18-2024 Evaluation and management of inpatient [facility] Facility:[facility] Start: 07-07-2024 Emergency department patient visit PROVIDER NOT IN SYSTEM Facility:[facility] Start: 07-06-2024 End: 07-06-2024 Telephone encounter Ryan Elizondo MD Work Phone: Ophthalmology Start: 07-05-2024 End: 07-07-2024 ambulatory [facility] Start: 07-05-2024 End: 07-07-2024 Emergency department patient visit Wm Nunes DO Work Phone: [facility] Trauma Neuro Progressive Care Unit PCU 3W Comment on above: Vision loss of right eye (Primary Dx); Acute intractable headache, unspecified headache type; Visual disturbance, subjective Start: 06-19-2024 End: 07-03-2024 ambulatory DEVIKA LEUNG Facility:[facility] Start: 06-19-2024 End: 07-03-2024 Subsequent hospital visit by physician Devika Leung DO Work Phone: [facility] MEDICAL TAYLOR PATIÑO Comment on above: [I63.9] - Cerebral i nfarction Start: 06-10-2024 End: 06-19-2024 Evaluation and management of inpatient TORSTEN SILVA Facility:[facility] Start: 05-22-2024 End: 05-22-2024 ambulatory [facility] Start: 05-21-2024 End: 05-21-2024 ambulatory HARMONY GREY [facility] Start: 05-21-2024 End: 05-21-2024 Anticoagulant drug monitoring Harmony Grey [facility] Work Phone: [facility] Comment on above: Atrial fibrillation, unspecified type (HCC); Acute venous embolism and thrombosis of deep vessels of proximal end of right lower extremity (HCC) Start: 05-14-2024 End: 05-14-2024 Subsequent hospital visit by physician Jared Evans MD Work Phone: [facility] Non-Invasive Cardiology Comment on above: Paroxysmal atrial fi brillation (HCC) Start: 05-14-2024 End: 05-14-2024 ambulatory [facility] Start: 05-09-2024 End: 05-09-2024 ambulatory [facility] Start: 05-09-2024 End: 05-09-2024 Anticoagulant drug monitoring Patty Duggan [facility] Work Phone: [facility] Comment on above: Atrial fibrillation, unspecified type (HCC); Acute venous embolism and thrombosis of deep vessels of proximal end of right lower extremity (HCC) Start: 05-01-2024 End: 05-01-2024 ambulatory [facility] Start: 05-01-2024 End: 05-01-2024 Anticoagulant drug monitoring Won Tipton RN [facility] Comment on above: Atrial fibrillation, unspecified type (HCC); Acute venous embolism and thrombosis of deep vessels of proximal end of right lower extremity (HCC) Start: 04-27-2024 End: 04-27-2024 Refill Phyllis Aguilera RN Work Phone: [facility] Comment on above: Deep vein thrombosis (DVT) of lower extremity, unspecified chronicity, unspecified laterality, unspecified vein (HCC); Atrial fibrillation, unspecified type (HCC); Acute venous embolism and thrombosis of deep vessels of proximal end of right lower extremity (HCC) Start: 04-25-2024 End: 04-25-2024 Office outpatient visit 15 minutes Henok Hernandez PA-C Work Phone: [facility] [place] Comment on above: Acute deep vein thro mbosis (DVT) of iliac vein of right lower extremity (HCC) (Primary Dx); PAD (peripheral artery disease) (HCC) Start: 04-25-2024 End: 04-25-2024 ambulatory [facility] Start: 04-23-2024 End: 04-23-2024 ambulatory [facility] Start: 04-20-2024 End: 07-20-2024 Transcribe Orders Jared Evans MD Work Phone: [facility] Central Scheduling Comment on above: Paroxysmal atrial fi brillation (HCC) (Primary Dx) Start: 04-19-2024 End: 04-19-2024 ambulatory [facility] Start: 04-19-2024 End: 04-19-2024 Anticoagulant drug monitoring Marybeth Rahman [facility] Antico[facility] Management Service Comment on above: Atrial fibrillation, unspecified type (HCC); Acute venous embolism and thrombosis of deep vessels of proximal end of right lower extremity (HCC) Start: 04-16-2024 End: 04-16-2024 ambulatory ANTHONY YEE [facility] Start: 04-14-2024 End: 04-14-2024 Anticoagulant drug monitoring Ulices Orr PharmD [facility] Comment on above: Deep vein thrombosis (DVT) of lower extremity, unspecified chronicity, unspecified laterality, unspecified vein (HCC) (Primary Dx) Start: 04-03-2024 End: 04-13-2024 Evaluation and management of inpatient Winifred Cornell DO Work Phone: [facility] Medical Unit 4N Comment on above: Ischemic leg (Primar y Dx); Right leg pain; Peripheral arterial disease (HCC); Right leg weakness; Atrial fibrillation, unspecified type (HCC) Start: 07-27-2023 End: 01-10-2024 Office outpatient new 30 minutes Ming Weinberg MD Work Phone: [facility] Comment on above: 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) Start: 06-15-2023 End: 06-15-2023 Subsequent hospital visit by physician Jared Evans MD Work Phone: [facility] MRI Comment on above: Abnormal findings on diagnostic imaging of other specified body structures; Pain in left leg Start: 06-01-2023 Transcribe Orders Jared Evans MD Work Phone: [facility] [employer] Central Scheduling Comment on above: Abnormal findings on diagnostic imaging of other specified body structures (Primary Dx); Pain in left leg Start: 05-24-2023 End: 05-24-2023 Subsequent hospital visit by physician Jared Evans MD Work Phone: [facility] US Comment on above: Other specified soft tissue disorders Start: 05-23-2023 Transcribe Orders Jared Evans MD Work Phone: [facility] [employer] Central Scheduling Comment on above: Other specified soft tissue disorders (Primary Dx) Start: 03-08-2023 End: 03-08-2023 Subsequent hospital visit by physician Jared Evans MD Work Phone: [facility] CT Comment on above: Localized swelling, mass and lump, neck Start: 02-28-2023 Transcribe Orders Jared Evans MD Work Phone: [facility] [employer] Central Scheduling Comment on above: Localized swelling, mass and lump, neck (Primary Dx) Start: 02-22-2023 End: 02-22-2023 Subsequent hospital visit by physician Jared Evans MD Work Phone: [facility] US Comment on above: Localized swelling, mass and lump, neck Start: 02-17-2023 Transcribe Orders Jared Evans MD Work Phone: [facility] [employer] Central Scheduling Comment on above: Localized swelling, mass and lump, neck (Primary Dx) Start: 07-06-2022 Telephone encounter Inés ENCINAS Comment on above: Follow Up Phone Call (All Clear) Start: 06-21-2022 End: 06-21-2022 Evaluation and management of inpatient SIM ELIZABETH Facility:[facility] Start: 06-19-2022 ambulatory Tamara Olivares [facility] [place] [address] CARD/HF/PD Start: 06-16-2022 End: 06-29-2022 Evaluation and management of inpatient BERNIE BIRD Facility:[facility] Start: 05-27-2022 Telephone encounter Jared pennington [...] [Units/v olume] in Serum or Plasma Wm Dealentrala DO Work Phone: Start: 05-22-2024 Follow-up visit [...] on above: Performed By: #### L [id number] ####Flavor Room Worker: VELMA VALADEZ ([phone])[facility] ([facility])[address] [place] [address] Start: 04-06-2024 Blood typing serologic abo Kristyn [...] abdl aorta&bi il iofem w/contrast&postp Bernie Doner [employer] Work Phone: Start: 04-03-2024 Ct head/brain w/o co ntrast material Bernie Doner [employer] Work Phone: Start: 04-03-2024 Comprehensive metabo lic panel Bernie Doner [employer] - [employer] Work Phone: Start: 04-03-2024 Ecg routine ecg w/le ast 12 lds trcg only w/o i&r Bernie He [employer] - [employer] Work Phone: Start: 06-15-2023 Mri lower extrem oth /thn jt w/o & w/contr matr Jared Evans MD Work Phone: Start: 05-24-2023 Dup-scan xtr veins unilateral/limited study Jared Evans MD Work Phone: Start: 06-21-2022 Antibody screen BERNIE BIRD Comment on above: Order Comment: Speci men Type: BLOOD SPECIMEN Ordering Facility: [facility] Address: [address] [place], [place] [id number] Performed By: #### T SCR #### [facility] [id number] [address] [place] [address] [place] Start: 03-07-2020 OPERATIVE REPORT 3m Sca nning Start: 02-08-2020 INCISION AND DRAINAGE R mona Mora Work Phone: Plan of Treatment Date Care Activity Detail Author Start: 02-15-2029 DTaP/Tdap/Td vaccine (2 - Td) DTaP/Tdap/Td vaccine (2 - Td) [facility] [place] Start: 02-15-2029 DTaP/Tdap/Td Vaccines (2 - Td or Tdap) DTaP/Tdap/Td Vaccines (2 - Td or Tdap) [facility] Start: 02-15-2029 Urine microalbumin profile DTaP,Tdap,Td Vaccine (2 - Td or Tdap) [facility] Start: 08-05-2027 Diabetes Screening Diabetes Screening [facility] Start: 07-07-2027 Diabetes Screening Diabetes Screening [facility] Start: 07-06-2027 Diabetes Screening Diabetes Screening [facility] Start: 06-21-2027 Diabetes Screening Diabetes Screening [facility] Start: 08-16-2025 End: 01-23-2026 OCT MACULA CIRRUS OD (RIGHT EYE) OCT MACULA CIRRUS OD (RIGHT EYE) [facility] Imaging Routine Postoperative eye state 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, right eye Subluxation of right lens Expected: 08/16/2025, Expires: 01/23/2026 [facility] Work Phone: Comment on above: Expected: 08/16/2025, Expires: Start: 08-05-2025 Diabetes: Estimated Glomerular Filtration Rate for Kidney Health Diabetes: Estimated Glomerular Filtration Rate for Kidney Health [facility] Start: 08-04-2025 Diabetes: Estimated Glomerular Filtration Rate for Kidney Health Diabetes: Estimated Glomerular Filtration Rate for Kidney Health [facility] Start: 07-31-2025 End: 01-07-2026 Right eye Photo documentation FUNDUS PHOTOS OD (RIGHT EYE) [facility] Imaging Routine Postoperative eye state 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, right eye Subluxation of right lens Expected: 07/31/2025, Expires: 01/07/2026 [facility] Work Phone: Comment on above: Expected: 07/31/2025, Expires: Start: 07-07-2025 Diabetes: Estimated Glomerular Filtration Rate for Kidney Health Diabetes: Estimated Glomerular Filtration Rate for Kidney Health [facility] Start: 06-24-2025 DIABETES SCREEN DIABETES SCREEN [facility] Start: 06-10-2025 Thyroid stimulating hormone measurement TSH Level [facility] Start: 05-18-2025 DIABETES SCREEN DIABETES SCREEN [facility] Start: 03-18-2025 Influenza vaccination [facility] Start: 03-15-2025 End: 03-15-2025 Patient encounter procedure 03/15/2025 11:15 AM EDT Office Visit [facility] [address] [place] [phone] Andre Patel MD [address] [facility] [address] [place] [address] [facility] Start: 01-02-2025 End: 01-02-2025 Patient encounter procedure 01/02/2025 9:45 AM EDT Office Visit [facility] [address] [place] [address] Savana Lopez MD [address] [place] [address] *3 M, DFE Ophthalmology Comment on above: *3 M, DFE Start: 12-24-2024 End: 12-24-2024 Patient encounter procedure 12/24/2024 2:30 PM EDT Office Visit [facility] [place] [address] [place] [phone] Kristyn Blankenship MD [address] [place] [address] [facility] Start: 12-05-2024 End: 12-05-2024 Patient encounter procedure 12/05/2024 10:00 AM EDT Office Visit [facility] [place] [address] [place] [phone] Kristyn Blankenship MD [address] [place] [address] [facility] [place] Start: 11-22-2024 End: 11-22-2024 Admission to same day surgery center 11/22/2024 9:30 AM EDT - 11/22/2024 11:30 AM EDT Surgery [facility] MA[facility] OR [address] [facility] [place] [address] Kristyn Blankenship MD [address] [place] [address] AORTOILIAC ANGIOGRAPHY, RIGHT LOWER EXTREMITY ANGIOGRAPHY WITH RUNOFF, POSSIBLE SUPERFICIAL FEMORAL ARTERY/POPLITEAL/TIBIAL ANGIOPLASTY/STENTING [71435 (CPT )] [facility] MAIN OR Comment on above: AORTOILIAC ANGIOGRAPHY, RIGHT LOWER EXTR EMITY ANGIOGRAPHY WITH RUNOFF, POSSIBLE SUPERFICIAL FEMORAL ARTERY/POPLITEAL/TIBIAL ANGIOPLASTY/STENTING [48820 (CPT )] Start: 11-22-2024 End: 11-22-2024 Angiography extremity unilateral rs&i ANGIOGRAM, EXTREMITY Skin ulcer of right great toe (HCC) Critical limb ischemia of right lower extremity (HCC) 11/22/2024 9:30 AM EDT [facility] Operating Room Start: 11-22-2024 Subsequent hospital visit by physician 11/22/2024 9:30 AM EDT Hospital Encounter [facility] [address] [place] [address] Kristyn Blankenship MD [address] [place] [id number] [facility] Start: 11-20-2024 Subsequent hospital visit by physician 11/20/2024 Hospital Encounter [facility] OR [address] [place] [phone] Kristyn Blankenship MD [address] [place] [phone] [facility] MAIN OR Start: 11-13-2024 End: 11-13-2025 Basic metabolic 1998 panel - Serum or Plasma Basic metabolic panel Lab Routine Pre-op evaluation Expected: 11/13/2024 (Approximate), Expires: 11/13/2025 [facility] Comment on above: Expected: 11/13/2024 (Approximate), Expi res: 11/13/2025 Start: 11-13-2024 End: 11-13-2025 CBC W Auto Differential panel - Blood CBC auto differential Lab Routine Pre-op evaluation Expected: 11/13/2024 (Approximate), Expires: 11/13/2025 [facility] Work Phone: Comment on above: Expected: 11/13/2024 (Approximate), Expi res: 11/13/2025 Start: 10-01-2024 End: 10-01-2024 Patient encounter procedure 10/01/2024 10:30 AM EDT Office Visit [facility] [address] [address] Savana Lopez MD [address] [place] [address] 26 Day F/U ~ DFE OD bscan OD . Ophthalmology Comment on above: 26 Day F/U ~ DFE OD bscan OD . Start: 08-22-2024 End: 08-22-2024 Patient encounter procedure 08/22/2024 10:30 AM EST Office Visit [facility] [place] [address] [place] [phone] Henok Lantigua PA-C [address] [place] [phone] [facility] [place] Start: 08-15-2024 End: 08-15-2024 Patient encounter procedure 08/15/2024 9:45 AM EST Office Visit [facility] [address] [place] [address] Savana Lopez MD [address] [place] [address] *1 month post op Ophthalmology Comment on above: *1 month post op Start: 08-06-2024 End: 08-06-2024 Patient encounter procedure 08/06/2024 11:00 AM EST Office Visit [facility] [place] [address] [place] [phone] Henok Lantigua PA-C [address] [place] [phone] [facility] [place] Start: 08-01-2024 End: 08-01-2024 Patient encounter procedure Ophthalmology Comment on above: *1 week post op Start: 07-31-2024 End: 07-31-2024 Patient encounter procedure [facility] Start: 07-27-2024 End: 07-27-2024 Admission to same day surgery center 07/27/2024 10:50 AM EST - 07/27/2024 12:40 PM EST Surgery Ophthalmology [address] [address] Savana Lopez MD [address] [place] [address] VITRECTOMY 25G [facility] PARS PLANA APPROACH W/ REMOVAL OF PRERETINAL CELLULAR MEMBRANE Ophthalmology Comment on above: VITRECTOMY 25G [facility] PARS PLANA APPROACH W/ REMOVAL OF PRERETINAL CELLULAR MEMBRANE Start: 07-27-2024 End: 07-27-2024 Aspiration/release vitreous subretinal/choroidal RELEASE OF VITREOUS, CHOROIDAL FLUID, PARS PLANA APPROACH Hemorrhagic choroidal detachment of right eye 07/27/2024 10:50 AM EST [facility] Start: 07-27-2024 Subsequent hospital visit by physician 07/27/2024 10:50 AM EST Hospital Encounter Ophthalmology [address] [address] Savana Lopez MD [address] [place] [address] 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] Ophthalmology Comment on above: Hemorrhagic choroidal detachment of righ t eye [H31.411] Start: 07-27-2024 End: 07-27-2024 Vitrectomy pars plana remove preretinal membrane VITRECTOMY 25G [facility] PARS PLANA APPROACH W/ REMOVAL OF PRERETINAL CELLULAR MEMBRANE Hemorrhagic choroidal detachment of right eye 07/27/2024 10:50 AM EST [facility] Start: 07-23-2024 End: 07-23-2024 Patient encounter procedure 07/23/2024 10:45 AM EST Office Visit [facility] [address] [address] Savana Lopez MD [address] [place] [address] *1 W, DFE OD/BSCAN OD/OPTOS OD Ophthalmology Comment on above: *1 W, DFE OD/BSCAN OD/OPTOS OD Start: 07-18-2024 Advance Directive Discussion Advance Directive Discussion [facility] Start: 07-18-2024 Medicare Advantage Annual Wellness Visit Medicare Advantage Annual Wellness Visit [facility] Start: 07-16-2024 End: 07-16-2024 Patient encounter procedure [...] eye 07/13/2024 2:04 PM EST [facility] Start: 07-13-2024 End: 07-13-2024 Evaluation and management of inpatient 07/13/2024 2:04 PM EST - 07/13/2024 3:24 PM EST Surgery Ophthalmology [address] [address] Savana Lopez MD [address] [place] [address] ASPIRATION VITREOUS, CHOROIDAL FLUID, PARS PLANA APPROACH Ophthalmology Comment on above: ASPIRATION VITREOUS, CHOROIDAL FLUID, PA RS PLANA APPROACH Start: 06-04-2024 End: 05-21-2025 POCT Prothrombin Time INR ([facility]) POCT Prothrombin Time INR ([facility]) Lab Routine Atrial fibrillation, unspecified type (HCC) Acute venous embolism and thrombosis of deep vessels of proximal end of right lower extremity (HCC) Expected: 06/04/2024, Expires: 05/21/2025 [facility] Work Phone: Comment on above: Expected: 06/04/2024, Expires: Start: 06-04-2024 End: 06-04-2024 Anticoagulant drug monitoring 06/04/2024 1:15 AM EST Anticoagulation - Warfarin Visit [facility] [phone] [place] [phone] [facility] Start: 05-22-2024 End: 05-22-2024 Patient encounter procedure 05/22/2024 3:00 PM EST Office Visit [facility] [place] [address] [place] [address] [address] [place] [phone] Hermila Padilla MD [address] [facility] [address] [place], [place] [phone] [facility] Start: 05-22-2024 End: 05-22-2024 Anticoagulant drug monitoring 05/22/2024 12:45 AM EST Anticoagulation - Warfarin Visit [facility] [address] [phone] [facility] Start: 05-14-2024 End: 05-14-2024 Patient encounter procedure 05/14/2024 2:00 PM EDT Appointment [facility] Non-Invasive Cardiology [address] [place] [phone] [facility] Non-Invasive Cardiology Start: 05-08-2024 End: 05-01-2025 POCT Prothrombin Time INR ([facility]) POCT Prothrombin Time INR ([facility]) Lab Routine Atrial fibrillation, unspecified type (HCC) Acute venous embolism and thrombosis of deep vessels of proximal end of right lower extremity (HCC) Expected: 05/08/2024 (Approximate), Expires: 05/01/2025 [facility] Work Phone: Comment on above: Expected: 05/08/2024 (Approximate), Expi res: 05/01/2025 Start: 05-08-2024 End: 05-08-2024 Anticoagulant drug monitoring 05/08/2024 1:30 AM EDT Anticoagulation - Other Visit [facility] [address] [phone] [facility] Start: 05-01-2024 End: 05-01-2024 Anticoagulant drug monitoring 05/01/2024 Anticoagulation - Warfarin Visit [facility] [address] [phone] [facility] Start: 04-23-2024 End: 04-19-2025 POCT Prothrombin Time INR ([facility]) POCT Prothrombin Time INR ([facility]) Lab Routine Atrial fibrillation, unspecified type (HCC) Acute venous embolism and thrombosis of deep vessels of proximal end of right lower extremity (HCC) Expected: 04/23/2024 (Approximate), Expires: 04/19/2025 [employer] Work Phone: Comment on above: Expected: 04/23/2024 (Approximate), Expi res: 04/19/2025 Start: 04-23-2024 End: 04-23-2024 Patient encounter procedure 04/23/2024 9:15 AM EDT Office Visit [facility] [place] [address] [place] [phone] Henok Hernandez PA-C [address] [place], [place] [phone] [facility] [place] Start: 04-23-2024 End: 04-23-2024 Anticoagulant drug monitoring 04/23/2024 1:15 AM EDT Anticoagulation - Warfarin Visit [facility] [address] [place] [address] [facility] Start: 04-19-2024 End: 04-19-2024 Anticoagulant drug monitoring 04/19/2024 1:00 AM EDT Anticoagulation - Warfarin Visit [facility] [address] [place] [address] [facility] Anticoagulation Management Service Start: 04-16-2024 End: 04-16-2025 POCT Prothrombin Time INR ([facility]) POCT Prothrombin Time INR ([facility]) Lab Routine Deep vein thrombosis (DVT) of lower extremity, unspecified chronicity, unspecified laterality, unspecified vein (HCC) Expected: 04/16/2024, Expires: 04/16/2025 [employer] Work Phone: Comment on above: Expected: 04/16/2024, Expires: Start: 03-18-2024 Covid-19 Vaccine ( season) Covid-19 Vaccine ( season) [facility] Start: 03-18-2024 Influenza vaccination Influenza Vaccine (#1) [facility] Start: 07-18-2023 Advance Directive Discussion Advance Directive Discussion [facility] Start: 07-18-2023 Medicare Advantage Annual Wellness Visit Medicare Advantage Annual Wellness Visit [facility] Start: 03-18-2023 Influenza vaccination Influenza Vaccine (#1) [facility] Start: 03-18-2022 Influenza vaccination INFLUENZA (#1) [facility] Start: 07-18-2021 ADVANCE DIRECTIVE DISCUSSION ADVANCE DIRECTIVE DISCUSSION [facility] Start: 07-18-2021 DEPRESSION ASSESSMENT DEPRESSION ASSESSMENT [facility] Start: 03-18-2020 Influenza vaccination Flu vaccine (#1) [place] Start: 03-13-2020 End: 03-13-2020 Office Visit 03/13/2020 Office Visit Orthopedic Surgery Jayla Mcmahan MD [address] [facility] [address] [place] [address] [phone] [facility] [place] Start: 03-07-2020 Hospital Encounter 03/07/2020 Hospital Encounter IP Unit Jayla Mcmahan MD [address] [facility] [address] [place], [place] [address] Yoan Serrato Dept Start: 03-06-2020 Annual Wellness Visit (AWV) Annual Wellness Visit (AWV) [place] Start: 04-12-2019 Pneumococcal Vaccine: 50+ Years (2 of 2 - PPSV23) Pneumococcal Vaccine: 50+ Years (2 of 2 - PPSV23) [facility] Start: 04-12-2019 Pneumococcal Vaccine: 65+ Years (2 - PPSV23 if available, else PCV20) Pneumococcal Vaccine: 65+ Years (2 - PPSV23 if available, else PCV20) [facility] Start: 04-12-2019 Pneumococcal Vaccine: 65+ Years (2 - PPSV23 or PCV20) Pneumococcal Vaccine: 65+ Years (2 - PPSV23 or PCV20) [facility] Start: 04-12-2019 Pneumococcal Vaccine: 65+ Years (2 of 2 - PPSV23 or PCV20) Pneumococcal Vaccine: 65+ Years (2 of 2 - PPSV23 or PCV20) [facility] Start: 02-13-2016 DIABETES SCREEN DIABETES SCREEN [facility] Start: 09-24-2014 RSV Immunization for Adults (1 - 1-dose 75+ series) RSV Immunization for Adults (1 - 1-dose 75+ series) [facility] Start: 04-23-2010 DIABETES SCREEN DIABETES SCREEN [facility] Start: 09-24-2004 BONE DENSITY BONE DENSITY [facility] Start: 09-24-2004 Pneumococcal 65+ years Vaccine (2 of 2 - PPSV23) Pneumococcal 65+ years Vaccine (2 of 2 - PPSV23) [place] Start: 09-24-2004 PNEUMOCOCCAL: 65+ (1 - PCV) PNEUMOCOCCAL: 65+ (1 - PCV) [facility] Start: 09-24-2004 Screening for osteoporosis Bone Density Screening [facility] Start: 1999 RSV Immunization aged 60 or older (1 - 1-dose 60+ series) RSV Immunization aged 60 or older (1 - 1-dose 60+ series) [facility] Start: 09-24-1994 Screening for osteoporosis DEXA (modify frequency per FRAX score) [place] Start: 09-24-1989 Shingles Vaccine (1 of 2) Shingles Vaccine (1 of 2) [place] Start: 09-24-1989 SHINGRIX VACCINE (1 of 2) SHINGRIX VACCINE (1 of 2) [facility] Start: 09-24-1989 Zoster Vaccines (1 of 2) Zoster Vaccines (1 of 2) [facility] Start: 09-24-1958 Urine microalbumin profile DTAP,TDAP,TD (1 - Tdap) [facility] Start: 09-24-1958 Zoster Vaccines (1 of 2) Zoster Vaccines (1 of 2) [facility] Start: 09-24-1957 Anxiety Screening Anxiety Screening [facility] Start: 09-24-1957 Depression Screening Depression Screening [facility] Start: 09-24-1957 Diabetes: Urine Albumin-Creatinine Ratio for Kidney Health Diabetes: Urine Albumin-Creatinine Ratio for Kidney Health [facility] Start: 09-24-1957 SPIROMETRY SPIROMETRY [facility] Start: 1951 Depression Monitoring Depression Monitoring [facility] Start: 1951 Depresssion Monitoring Depresssion Monitoring [facility] Start: 09-24-1945 PNEUMOCOCCAL: 65+ (1 - PCV) PNEUMOCOCCAL: 65+ (1 - PCV) [facility] Start: 09-24-1944 COVID-19 Vaccine (#1) COVID-19 Vaccine (#1) [facility] Start: 03-27-1940 COVID-19 VACCINE (#1) COVID-19 VACCINE (#1) [facility] Start: 1939 Creatinine measurement Creatinine monitoring [facility] / ?.?? [facility] [place] [place] Start: 1939 Lipid panel Lipid Panel [facility] Start: 1939 Medicare Advantage Annual Wellness Visit (AWV) Medicare Advantage Annual Wellness Visit (AWV) [facility] Start: 1939 Potassium monitoring Potassium monitoring [facility] [place] [place] Start: 1939 Screening for osteoporosis Bone Density Scan [facility] Start: 1939 Thyroid stimulating hormone measurement TSH Level [facility] Angiography extremit y unilateral rs&i AORTOGRAM, WITH SERIALOGRAPHY Critical limb ischemia of right lower extremity (HCC) [facility] Operating Room Aortography abdomina l serialography rs&i AORTOGRAM, WITH SERIALOGRAPHY Critical limb ischemia of right lower extremity (HCC) [facility] Operating Room BSCAN OD (RIGHT EYE) BSCAN OD (R IGHT EYE) OPHT Imaging Routine Hemorrhagic choroidal detachment of right eye 07/09/2024 9:09 AM EST [facility] Work Phone: End: 01-03-2026 BSCAN OD (RIGHT EYE) BSCAN OD (RIGHT EYE) OPHT Imaging Routine Hemorrhagic choroidal detachment of right eye Dislocation of intraocular lens, initial encounter 1 Occurrences starting 07/12/2024 until 01/03/2026 [facility] Work Phone: Comment on above: 1 Occurrences starting 07/12/2024 until 01/03/2026 End: 01-07-2026 BSCAN OD (RIGHT EYE) BSCAN OD (RIGHT EYE) OPHT Imaging Routine Postoperative eye state 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, right eye Subluxation of right lens 1 Occurrences starting 07/16/2024 until 01/07/2026 [facility] Comment on above: 1 Occurrences starting 07/16/2024 until 01/07/2026 End: 02-27-2026 BSCAN OD (RIGHT EYE) BSCAN OD (RIGHT EYE) [facility] Imaging Routine Postoperative eye state 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, right eye Subluxation of right lens 1 Occurrences starting 09/05/2024 until 02/27/2026 [facility] Work Phone: Comment on above: 1 Occurrences starting 09/05/2024 until 02/27/2026 Camera fundoscopy FUNDUS PHOTOS OU (BOTH EYES) [facility] Imaging Routine Hemorrhagic choroidal detachment of right eye 07/09/2024 8:35 AM [facility] End: 03-08-2023 CT Neck W contrast IV [employer] Work Phone: Comment on above: Once for 1 Occurrences starting 03/08/20 until 03/08/2023 Incision/Drainage Incision/Drain age Procedures Routine 02/08/2020 7:17 PM EDT [employer] [facility] OUTSIDE PROCEDURE SCAN OUTSIDE P ROCEDURE SCAN Procedures Ordered: 02/21/2023 [employer] Comment on above: Ordered: 02/21/2023 OUTSIDE PROCEDURE SCAN OUTSIDE P ROCEDURE SCAN Procedures Ordered: 03/07/2023 [employer] Comment on above: Ordered: 03/07/2023 OUTSIDE PROCEDURE SCAN OUTSIDE P ROCEDURE SCAN Procedures Ordered: 05/24/2023 [employer] Comment on above: Ordered: 05/24/2023 OUTSIDE PROCEDURE SCAN OUTSIDE P ROCEDURE SCAN Procedures Ordered: 06/14/2023 [employer] Comment on above: Ordered: 06/14/2023 Oxygen therapy [Minimum Data Set] Initiate Oxygen Therapy Protocol Respiratory Care Routine Daily until discontinued starting 03/07/2020 [facility] Comment on above: Daily until discontinued starting 2019 End: 02-22-2023 US Head and neck soft tissue [employer] Work Phone: Comment on above: Once for 1 Occurrences starting 02/23/20 until 02/22/2023 End: 03-06-2020 XR FINGER RIGHT (MIN 2 VIEWS) XR FINGER RIGHT (MIN 2 VIEWS) Imaging Routine Once for 1 Occurrences starting 03/06/2020 until 03/06/2020 [facility] Comment on above: Once for 1 Occurrences starting 03/06/20 until 03/06/2020 XR FINGER RIGHT (MIN 2 VIEWS) XR FINGER RIGHT (MIN 2 VIEWS) Imaging Routine 03/06/2020 10:20 AM EDT [facility] Immunizations Immunization Date Immunization Notes Care Provider Abe faustin 05-19-2021 Influenza, High-dose Seasonal, Quadrivalent, Preservative Free Ming Weinberg MD Work Phone: [facility] 05-19-2021 influenza virus vaccine, unspecified formulation Jared Evans MD Work Phone: [facility] 02-15-2019 pneumococcal conjuga te vaccine, 13 valent Ming Weinberg MD Work Phone: [facility] 02-15-2019 tetanus toxoid, redu larissa diphtheria toxoid, and acellular pertussis vaccine, adsorbed Ming Weinberg MD Work Phone: [facility] 06-29-2013 influenza, high dose seasonal, preservative-free Ming Weinberg MD Work Phone: [facility] NEGATED: Highlighted row has not occurred!04-05-2024 Seasonal trivalent influenza vaccine, adjuvanted, preservative free Winifred Cornell DO Work Phone: [facility] Comment on above: Deferred: Patient Re fused Payers Date Payer Category Payer Unknown [id number] 2024 Self-pay 2023 Private Health Insurance HUMANA HUMANA MEDICARE SUPPLEMENT [id number] 2023-[address] [place] [id number] Commercial [id number] 2017 Medicare [id number] 2017 Medicare (Managed Care) JURGENA M EDMIKERE [id number] 2017 Medicare HMO HUMANA MEDICARE [id number] 2017 Medicare [id number]. [id number] 1940 Unknown [id number] 2.16.840.1.925086.3.579. 2.594 Unknown [id number]. 1.13.159. 2.7.3.567867.315 Unknown [id number] 2.16.840.1.931102.3.579. 2.462 Unknown [id number] 2.16.840.1.231696.3.579. 2.462 Unknown [id number] 2.16.840.1.683909.3.579. 2.462 Unknown [id number] 2.16.840.1.513760.3.579. 2.462 Unknown [id number] 2.16.840.1.701173.3.579. 2.462 Unknown [id number] 2.16.840.1.801021.3.579. 2.462 Unknown [id number] 2.16.840.1.516829.3.579. 2.462 Unknown [id number] 2.16.840.1.117928.3.579. 2.462 Unknown [id number] 2.16.840.1.693519.3.579. 2.462 Unknown [id number] 2.16.840.1.846413.3.579. 2.462 Unknown [id number] 2.16.840.1.753518.3.579. 2.462 Unknown [id number] 2.16.840.1.740328.3.579. 2.462 Unknown [id number] 2.16840.1.769063.3.579. 2.462 Unknown [id number] 2.16.840.1.897821.3.579. 2.462 Unknown [id number] 2.840.1.766852.3.579. 2.462 Unknown [id number] 2.840.1.469959.3.579. 2.462 Unknown [id number] 2.840.1.583795.3.579. 2.462 Unknown [id number] 2.840.1.397467.3.579. 2.462 Unknown [id number] 2.840.1.357082.3.579. 2.462 Unknown [id number] 2.840.1.576339.3.579. 2.462 Unknown [id number] 2.840.1.828282.3.579. 2.462 Unknown [id number] 2.840.1.254293.3.579. 2.462 Unknown [id number] 2.840.1.485794.3.579. 2.462 Unknown [id number] 2.840.1.254775.3.579. 2.462 Unknown [id number] 2.840.1.629966.3.579. 2.462 Unknown [id number] 2.840.1.001912.3.579. 2.462 Unknown [id number] 2.840.1.346300.3.579. 2.462 Unknown [id number] 2.16.840.1.531863.3.579. 2.462 Unknown [id number] 2.16.840.1.280614.3.579. 2.462 Unknown [id number] 2.16.840.1.050378.3.579. 2.462 Unknown [id number] 2.16.840.1.538282.3.579. 2.462 Unknown [id number] 2.16.840.1.510120.3.579. 2.462 Unknown [id number] 2.16.840.1.886227.3.579. 2.462 Social History Date Type Detail Facility Start: 02-08-2020 Tobacco smoking stat [facility] Current some day smoker [place] Start: 02-08-2020 End: 04-20-2024 Alcohol intake Current drinker of alcohol (finding) [place] Start: 02-08-2020 End: 05-22-2024 Alcohol Comment occ [place], [place] Start: 1940 Sex Assigned At Not on file [place] Start: 05-04-2022 End: 03-08-2023 Exposure to SARS-CoV-2 (event) Not sure [place] Start: 03-06-2020 End: 04-25-2024 Tobacco smoking status NHIS Former smoker [place] Start: 03-06-2020 End: 04-25-2024 Tobacco use and exposure Never used [place] Tobacco smoking stat [facility] Tobacco smoking consumption unknown [facility] Start: 05-17-2022 End: 04-04-2024 Tobacco smoking status ORIS Smokes tobacco daily [facility] History of tobacco use Cigarette Smoker [facility] Start: 05-17-2022 End: 08-11-2024 Cigarettes smoked current (pack per day) - Reported 0.5 [facility] Start: 05-18-2022 History SDOH Financial 5 [facility] Start: 05-18-2022 History SDOH Food Worry 1 [facility] Start: 05-18-2022 History SDOH Transpo rt Med 2 [facility] Start: 07-05-2022 End: 03-15-2025 Alcohol intake Ex-drinker (finding) [facility] History of tobacco use Current smoker [facility] Start: 07-27-2023 End: 08-11-2024 Gender identity Not on file [facility] How often do you nee d to have someone help you when you read instructions, pamphlets, or other written material from your doctor or pharmacy [SILS] Never [facility] Has the [email or web address], [employer], or [employer] threatened to shut off services in your home in past 12Mo No [facility] Are you now , , , , never or living with a partner? [facility] How often to you hav e a drink containing alcohol? Monthly or less [facility] How often do you hav e 6 or more drinks on 1 occasion? Never [facility] How hard is it for y ou to pay for the very basics like food, housing, medical care, and heating Not very hard [facility] Do you feel stress - tense, restless, nervous, or anxious, or unable to sleep at night because your mind is troubled all the time - these days [OSQ] Not at all [facility] (I/We) worried wheth er (my/our) food would run out before (I/we) got money to buy more. Never true [facility] Start: 02-15-2022 End: 10-25-2024 Sex Female (finding) [facility] Start: 1940 Sex assigned at Female [facility] Start: 08-03-2024 Gender identity Identifies as female gender (finding) [facility] Start: 08-03-2024 Sexual orientation Heterosexual (fin ding) [facility] NEGATED: Highlighted rowStart: NINF History of tobacco use Passive smoker [facility] Medical Equipment Procedure Code Equipment Code Equipment Origin al Text Equipment Identifier Dates Gas Ispan [employer]ellation Intraocular Vision System [id number] - [id number] Start: 07-27-2024 Stent Vasc 6x40x 125 6f Zilver - Sna - [id number] Start: 11-22-2024 Stent Oliva 5x40x1 25 6f Zilver - Sna - [id number] Start: 11-22-2024 Functional Status Date Assessment Result Facility 07-18-2024 Are you deaf, or do you have serious difficulty hearing No 07/18/2024 12:17 PM Jaci Umana RN No [facility] 07-18-2024 Are you blind, or do you have serious difficulty seeing, even when wearing glasses Yes 07/18/2024 12:17 PM Jaci Umana, RADHA Yes [facility] 07-18-2024 Do you have serious difficulty walking or climbing stairs Yes 07/18/2024 12:17 PM Jaci Umana RN Yes [facility] 07-18-2024 Do you have difficul ty dressing or bathing Yes 07/18/2024 12:17 PM Jaci Umana RN Yes [facility] 07-18-2024 Because of a physica l, mental, or emotional condition, do you have difficulty doing errands alone such as visiting a physician's office or shopping Yes 07/18/2024 12:17 PM Jaci Umana RN Yes [facility] Mental Status Date Assessment Result Facility 07-18-2024 Because of a physica l, mental, or emotional condition, do you have serious difficulty concentrating, remembering, or making decisions No 07/18/2024 12:17 PM Jaci Umana RN No [facility] Clinical Notes 05-14-2022 to 03-15-2025 Andre Berry MD - 03/15/2025 11:15 AM Savana Triana MD - 01/02/2025 9:45 AM Cindy Blankenship MD - 12/24/2024 2:30 PM Cindy Blankenship MD - 12/05/2024 10:00 AM EDTDischarge Instructions Note Date & Type Note Facility 03-15-2025 History of Present illness Narrative Images from the original note were not included. Andre Patel MD [facility] Hematology/Oncology - [facility] [address] [address] [facility] [address] Dept: [phone] Dept PROBLEM LIST: 1. Recurrent DVT: Initially [...] completing clinical documentation as well as with [id number] patient care, performing a medically appropriate examination, counseling / educating the patient/family/caregiver, and ordering medications, tests, or procedures. HPI: Mel Pop is a 84 y.o. female who presents here today with VTE Pt w/ history of severe atherosclerosis, COPD, former smoker, diverticulosis, afib, hypertension, and GERD who presented to [facility] for right lower extremity [...] trifurcation vessels. Vascular surgery recommended transfer to [facility]. PVR and BLE US results pending however [...] transition to Coumadin. Here today w/ Lavelle (executive secretary social welfare from [facility]) as well as Fidel STALPETON Pt reports arterial stent placed in RLE. [...] Resource Strain: Low Risk (06/20/2024) Received from [facility] Overall Financial Resource Strain [...] min Stress: Patient Unable To Answer (08/03/2024) [employer] - Occupational Stress Questionnaire Feeling of Stress : Patient unable to answer Social Connections: Unknown (08/03/2024) Social Connection and Isolation Panel [NHANES] Frequency of Communication with Friends and Family: Patient unable to answer Frequency of Social Gatherings with Friends and Family: Patient unable to answer Attends Sikh Services: Patient unable to answer Active Member of Clubs or Organizations: Patient unable to answer Attends Club or Organization Meetings: Never Marital Status: Patient unable to answer Recent Concern: Social Connections - Moderately Isolated (06/20/2024) Received from [facility] Social Connection and Isolation Panel [NHANES] Frequency of Communication with Friends and Family: More than three times a week Frequency of Social Gatherings with Friends and Family: Once a week Attends Sikh Services: More than 4 times per year [...] recognition and may contain minor errors in special education inclusion teacher. [1] Past Medical History: Diagnosis Date Arrhythmia PAF Asthma Chronic kidney disease COPD (chronic obstructive pulmonary disease) ([facility]) DVT (deep venous thrombosis) ([facility]) Essential hypertension 03/07/2020 GERD (gastroesophageal reflux disease) Hiatal hernia IBS (irritable bowel syndrome) Pure hypercholesterolemia 03/07/2020 PVD (peripheral vascular disease) ([facility]) Stroke ([facility]) [2] Past Surgical History: Procedure Laterality Date ANKLE SURGERY ARM SURGERY (HISTORICAL) Right COLONOSCOPY ESOPHAGEAL DILATION EYE SURGERY Right 07/05/2024 [facility] EYE SURGERY Right 06/2024 x2, [facility] FINGER AMPUTATION Right 03/07/2020 right index [...] Percocet [Oxycodone-Acetaminophen] Itching documented in this encounter [facility] 01-02-2025 History of Present illness Narrative [...] 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 documented in this encounter [facility] 01-02-2025 Note HNO ID: [id number] Author: SAVANA LOPEZ MD Service: ? 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 [facility] 12-24-2024 History of Present illness Narrative 12/24/2024 Mel Pop 1940 Chief Complaint Patient presents with Follow-up Discuss Arterial Duplex Right 12/13/24; 2nd follow up RLE angio, SFA/pop/tib angioplasty/stenting 11/22/24 ([facility] [phone]) Patient returns for post operative evaluation s/p [...] femoral angiography (Krzysztof) documented in this encounter [facility] 12-05-2024 History of Present illness Narrative 12/05/2024 [...] MICHELLE PAD (peripheral artery disease) ([facility]) Relevant Orders Vascular US lower extremity [...] I reviewed the images with the patient's noumhbfx-qy-kwl who was present for today's visit as the patient is blind. Follow up after arterial duplex to discuss the results. 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 Groin site remains intact and LE distal pulses unchanged via assessment with doppler. Transportation called for picker packer [facility] 11-22-2024 Miscellaneous Notes POA called to bedside and discharge instructions reviewed. Groin site remains intact and LE distal pulses unchanged via assessment with doppler. Transportation called for picker packer POA given updated via phone call. Made [...] the patient as well as the patient's [id number] Fidel. They have elected to proceed. PROCEDURE [...] technique was used to place a 5 Hungarian sheath. The Bentson wire was positioned in [...] catheter and the catheter removed. The 5 Hungarian sheath was exchanged for a long 6 Hungarian Ansell sheath which was positioned with its [...] of this, a 5 x 40 mm Prepared Response Zilver self-expanding stent was placed across the [...] sheath was exchanged for a short 6 Hungarian sheath. A Vascade closure device was deployed [...] MD Vascular Surgery documented in this encounter [facility] 11-22-2024 Procedure note POA given updated via phone call. Made aware of patient's orders to lay flat until 1325. Daughter in law stated that she will call care facility later to make arrangements for transportation back. [facility] 11-22-2024 Hospital Discharge instructions Mehreen Khanna [...] the office l documented in this encounter [facility] 11-22-2024 Nurse Note Patient arrived on unit. Name and date verified. Attached to monitors. Vital signs stable. [facility] 11-22-2024 Note [facility] 11-22-2024 Procedure note OPERATIVE REPORT DATE [...] the patient as well as the patient's rfjuvkqk-[id number]-jat Fidel. They have elected to proceed. PROCEDURE [...] technique was used to place a 5 Hungarian sheath. The Bentson wire was positioned in [...] catheter and the catheter removed. The 5 Hungarian sheath was exchanged for a long 6 Hungarian Ansell sheath which was positioned with its [...] sheath was exchanged for a short 6 Hungarian sheath. A Vascade closure device was deployed [...] preoperative examination. Kristyn Blankenship MD Vascular Surgery [facility] [facility] Attending History and physical [...] with a walker with pT at her half-way facility. She is on Eliquis and statin. [...] min Stress: Patient Unable To Answer (08/03/2024) [employer] - Occupational Stress Questionnaire Feeling of Stress : Patient unable to answer Social Connections: Unknown (08/03/2024) Social Connection and Isolation Panel [NHANES] Frequency of Communication with Friends and Family: Patient unable to answer Frequency of Social Gatherings with Friends and Family: Patient unable to answer Attends Sikh Services: Patient unable to answer Active Member of Clubs or Organizations: Patient unable to answer Attends Club or Organization Meetings: Never Marital Status: Patient unable to answer Recent Concern: Social Connections - Moderately Isolated (06/20/2024) Received from [facility] Social Connection and Isolation Panel [NHANES] Frequency of Communication with Friends and Family: More than three times a week Frequency of Social Gatherings with Friends and Family: Once a week Attends Sikh Services: More than 4 times per year [...] like me to discuss this with her lbyjqrxm-fj-faa Fidel Castillo. She states she is her POA. I have contacted Fidel via telephone and explained the above and the recommendations for angiography. She will speak with the patient and call the office to let us know how they would like to proceed. Kristyn Blankenship MD Vascular Surgery [employer] Work Phone: 11-22-2024 Note [facility] 11-22-2024 History and physical note H&P [...] with a walker with pT at her half-way facility. She is on Eliquis and statin. [...] EYE SURGERY Right 06/2024 x2, [facility] FINGER AMPUTATION Right 03/07/2020 right index [...] min Stress: Patient Unable To Answer (08/03/2024) [place] - Occupational Stress Questionnaire Feeling of Stress : Patient unable to answer Social Connections: Unknown (08/03/2024) Social Connection and Isolation Panel [NHANES] Frequency of Communication with Friends and Family: Patient unable to answer Frequency of Social Gatherings with Friends and Family: Patient unable to answer Attends Sikh Services: Patient unable to answer Active Member of Clubs or Organizations: Patient unable to answer Attends Club or Organization Meetings: Never Marital Status: Patient unable to answer Recent Concern: Social Connections - Moderately Isolated (06/20/2024) Received from [facility] Social Connection and Isolation Panel [NHANES] Frequency of Communication with Friends and Family: More than three times a week Frequency of Social Gatherings with Friends and Family: Once a week Attends Sikh Services: More than 4 times per year [...] like me to discuss this with her frcjomrs-sb-wuz Fidel Castillo. She states she is her POA. I have contacted Fidel via telephone and explained the above and the recommendations for angiography. She will speak with the patient and call the office to let us know how they would like to proceed. Kristyn Blankenship MD Vascular Surgery documented in this encounter [facility] 11-09-2024 Note Tried to reach patie nt to discuss pig farmer her procedure. Mailbox full & unable to leave voicemail. [facility] 11-05-2024 History of Present illness Narrative [...] with a walker with pT at her half-way facility. She is on Eliquis and statin. [...] EYE SURGERY Right 06/2024 , [facility] FINGER AMPUTATION Right 03/07/2020 right index [...] Resource Strain: Low Risk (06/20/2024) Received from [facility] Overall Financial Resource Strain [...] min Stress: Patient Unable To Answer (08/03/2024) [place] - Occupational Stress Questionnaire Feeling of Stress : Patient unable to answer Social Connections: Unknown (08/03/2024) Social Connection and Isolation Panel [NHANES] Frequency of Communication with Friends and Family: Patient unable to answer Frequency of Social Gatherings with Friends and Family: Patient unable to answer Attends Sikh Services: Patient unable to answer Active Member of Clubs or Organizations: Patient unable to answer Attends Club or Organization Meetings: Never Marital Status: Patient unable to answer Recent Concern: Social Connections - Moderately Isolated (06/20/2024) Received from [facility] Social Connection and Isolation Panel [NHANES] Frequency of Communication with Friends and Family: More than three times a week Frequency of Social Gatherings with Friends and Family: Once a week Attends Sikh Services: More than 4 times per year [...] like me to discuss this with her qxqrdgmz-wk-vwv Fidel Castillo. She states she is her POA. I have contacted Fidel via telephone and explained the above and the recommendations for angiography. She will speak with the patient and call the office to let us know how they would like to proceed. Kristyn Blankenship MD Vascular Surgery documented in this encounter [facility] 11-05-2024 Note [facility] 10[facility]01[facility]24 Note Date of Procedure 10/01/2024. Human Geography Faculty Member Information CATALINA Donovan CDOS 10/01/2024 10:58 AM [...] eye documented in this encounter [facility] 10-01-2024 Note HNO ID: [id number] Author: SAVANA LOPEZ MD Service: ? Author [...] agree with al (more content not included)... [facility] 10-01-2024 History of Present illness Narrative Can [...] to HTN (SBP 199/99 at presentation to [place]) and anticoagulation that led to angle closure [...] components. 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 documented in this encounter [facility] 09-05-2024 Note HNO ID: [id number] Author: SAVANA LOPEZ MD Service: ? 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 [facility] 08-22-2024 History of Present illness Narrative [facility] [place] [facility] Follow-up Office Visit CHIEF COMPLAINT: Chief Complaint Patient presents with Follow-up 3 month follow up, PAD check ([facility] HISTORY OF PRESENT ILLNESS: Mel [...] is ambulating with walker with PT at [facility] without difficulty. She denies any rest [...] EYE SURGERY Right 06/2024 x2, [facility] FINGER AMPUTATION Right 03/07/2020 right index [...] Resource Strain: Low Risk (06/20/2024) Received from [facility] Overall Financial Resource Strain [...] min Stress: Patient Unable To Answer (08/03/2024) [place] - Occupational Stress Questionnaire Feeling of Stress : Patient unable to answer Social Connections: Unknown (08/03/2024) Social Connection and Isolation Panel [NHANES] Frequency of Communication with Friends and Family: Patient unable to answer Frequency of Social Gatherings with Friends and Family: Patient unable to answer Attends Sikh Services: Patient unable to answer Active Member of Clubs or Organizations: Patient unable to answer Attends Club or Organization Meetings: Never Marital Status: Patient unable to answer Recent Concern: Social Connections - Moderately Isolated (06/20/2024) Received from [facility] Social Connection and Isolation Panel [NHANES] Frequency of Communication with Friends and Family: More than three times a week Frequency of Social Gatherings with Friends and Family: Once a week Attends Sikh Services: More than 4 times per year [...] Follow-Up: prn . documented in this encounter [facility] 08-16-2024 Note [facility] 08-16-2024 Nurse Note Patient picked up for transfer to [facility] by stretcher. Report already called to GENET Garcia. [facility] 08-16-2024 Nurse Note Patient picked up for transfer to [facility] by stretcher. Report already called to GENET Garcia. Telephone report called to GENET Garcia at [facility]. Bedside swallow completed. Pt passed and tolerated well tolerated well. documented in this encounter [facility] 08-16-2024 Nurse Note Telephone report called to GENET Garcia at [facility]. [facility] 08-16-2024 Note Formatting of this n ote might be different from the original. Arranged transport to [facility] via [facility] with pickup at 2pm. Notified snf of transport time via [employer] message; reviewed time with RN, community development director and TCC. Called pt's daughter to review discharge time., plan; she is agreeable. [facility] 08-16-2024 Note Formatting of this n ote might be different from the original. Arranged transport to [facility] via [employer] with pickup at 2pm. Notified snf of transport time via [employer] message; reviewed time with RN, community development director and TCC. Called pt's daughter to review discharge time., plan; she is agreeable. [facility] 08-16-2024 Miscellaneous Notes Arranged transport to [facility] via [employer] with pickup at 2pm. Notified snf of transport time via [employer] message; reviewed time with RN, community development director and TCC. Called pt's daughter to review discharge time., plan; she is agreeable. Patient Choice Patient Name: MEL POP Date of : 1940 All Providers Sent Referral Name: [facility] Phone: [phone] Address: [address] [place], [place] [address] [address] Name: [facility] [place] Phone: [phone] Address: [address] [place] [address] Name: [facility] Phone: [phone] Address: [place] [address] MAR & Discharge med list transmitted to [facility] via [facility] per TCC request. Pt has auth to go to [facility]. Dttiffanie Stokes,[phone] was called, message left @DC. Care Team was messaged...place DC orders/MAR. Dar YOUNG, RN complete HECTOR. CONSTRUCTION PROJECT ASSISTANT will arrange transport for this am. PROFESSIONAL FEE CODER tasked to sebd DC orders/MAR. Problem: [...] met Outcome: Progressing [id number] be [facility] to [facility]. Dtr Fidel Updated. CM to [...] Progressing Pt has Been accepted to [facility]. Need PT/OT to see so auth to be started. Therapy to see today was sent. Called and spoke with Dtbraxton Verdin. [facility] tasked w update. CM to follow. [...] Outcome: Progressing Referral placed to SNF- [facility] via [facility] per [facility] request. Await review and response regarding ability to accept. TCC notified. Electronically signed by Christine Morataya [facility], 08-13-2024 at 3:00 PM Called dgt to talk about dc planning. Dgt continues to tour SNFs this evening, since she was sick this weekend. Provided me with two more SNF choices. [facility]. Tasked [facility] to create these referrals. CM to follow. [...] Dgt touring facilities over the weekend. [place]. [facility] pending acceptance, updates sent via [employer]. Problem: Knowledge Deficit Goal: Patient/family/caregiver demonstrates understanding [...] Nutritional Intake Outcome: Progressing Referral placed to [facility] via [facility] per TCC request. Await review and response regarding ability to accept. TCC notified. Electronically signed by Christine Morataya [facility], 08-10-2024 at 9:23AM Pt was to be DC to [facility]. Found out pt and dtr didn't want to return to [facility]. SNF was made aware. On adm spoke with Dtr Fidel, ok to return. Called Dtr this am, after speaking with pt and things that happened and didn't happen. Fidel requesting a referral to be made to [facility]. [facility] tasked to send. A SNF list was emailed to Fidel. [email or web address]. She will tour facilities over weekend. CM [...] and med list sent via [facility] to [facility] per TCC request. Auth received. Patient with active dc orders. Transportation arranged through [facility] with estimated picker packer time of 1929. left with daughter Fidel along with 3N phone number to call with questions. Bedside RN aware. Facility updated. [facility] call centre supervisor sent orders to [facility]. hatchery manager was asked to assist with setting up transport back to [facility] this evening. power shovel mechanic had already done so, but this consulting services manager called daughter to inform her of discharge and transport set up. Daughter did not wish patient to return to the SNF. Laboratory Worker told her that patient is medically stable for dc and that she should continue the discussion with the executive secretary social welfare and district court administrator at The snf, and also get options from [employer]. Coordinator was to message the snf about return this evening via [employer]. Updated PT/OT notes placed to SNF [facility] via [employer] per TCC request. Await review and response regarding ability to accept. TCC notified. Electronically signed by [facility] Aracelis Gardiner Patient is medically ready for dc. PT/OT both continuing to recommend SNF. [facility] consulting services manager asked to start auth. Plan to [...] be started. Pt will Be Dc'd to [facility]. CM to follow. Problem: Knowledge Deficit [...] aspiration 2/2 vomiting. Discharge Plan: Return to [facility]. Therapy eval needed for precert. TCC [...] Plan is for pt to return to [facility]. Auth and HECTOR needed prior to DC. CM to follow. Per attending pt ready for DC. Pt will return to [facility]. Pt needs PT/OT to start [...] RN Outcome: Progressing Return referral placed to [facility] via [facility] per TCC request. Await review and response regarding ability to accept. TCC notified. Pt to ED w N/V/Diarrhea, was Dx w Aspiration pneumonitis. Started on IV ATB's. Called pt's Dtr, Fidel, . Pt is from [facility]. Plan on returning. [facility] tasked to send a return referral. Problem: [...] Improved Outcome: Progressing documented in this encounter [facility] 08-16-2024 Note Formatting of this n ote might be different from the original. Patient Choice Patient Name: MEL POP Date of : 1940 All Providers Sent Referral Name: [facility] Phone: [phone] Address: [address] [address] Name: [facility] [place]) Phone: [phone] Address: [address] [place] [address] Name: [facility] Phone: [phone] Address: [address] [place] [address] [facility] 08-16-2024 Note Formatting of this n ote might be different from the original. Patient Choice Patient Name: MEL POP Date of : 1940 All Providers Sent Referral Name: [facility] Phone: [phone] Address: [address] [place] [address] Name: [facility] [place]) Phone: [phone] Address: [address] [place] [address] Name: [facility] Phone: [phone] Address: [address] [place] [address] [facility] 08-16-2024 Note Formatting of this n ote might be different from the original. MAR & Discharge med list transmitted to [facility] via [facility] per TCC request. [facility] 08-16-2024 Note Formatting of this n ote might be different from the original. MAR & Discharge med list transmitted to [facility] via [facility] per TCC request. [facility] 08-16-2024 Note Formatting of this n ote might be different from the original. Pt has auth to go to [facility]. Dtr Fidel,[phone] was called, message left @DC. Care Team was messaged...place DC orders/MAR. Dar YOUNG RN complete HECTOR. CONSTRUCTION PROJECT ASSISTANT will arrange transport for this am. [facility] tasked to sebd DC orders/MAR. [facility] 08-16-2024 Note Formatting of this n ote might be different from the original. Pt has auth to go to [facility]. Dtr Fidel,[phone] was called, message left @DC. Care Team was messaged...place DC orders/MAR. Dar YOUNG, RN complete HECTOR. CONSTRUCTION PROJECT ASSISTANT will arrange transport for this am. PROFESSIONAL FEE CODER tasked to sebd DC orders/MAR. [facility] 08-16-2024 History of Present illness Narrative Hospitalist Progress Note 08/16/2024 Subjective: Admit Date: 08/03/2024 PCP: Jared Evans MD Room#: [id number] A BRIEF HOSPITAL COURSE: Mel is a 83 y.o. female with past medical history below who presents with chief complaint listed above.Patient is an 83 y/o female who presented to [facility] early this AM from local OR for vomiting and diarrhea. Patient reported she [...] HOSPITAL) LABS: CBC: No results for input(s): WBC, [...] Devika Escobar MD Division of Hospitalist Medicine [facility] Hospitalist Progress Note 08/15/2024 Subjective: Admit Date: 08/03/2024 PCP: Jared Evans MD Room#: [id number] A BRIEF HOSPITAL COURSE: Mel is a 83 y.o. female with past medical history below who presents with chief complaint listed above.Patient is an 83 y/o female who presented to [facility] early this AM from local OR for vomiting and diarrhea. Patient reported she [...] HOSPITAL) LABS: CBC: No results for input(s): WBC, [...] Devika Escobar MD Division of Hospitalist Medicine [facility] Images from the original note were not included. PHYSICAL THERAPY [facility] Treatment Note Name/MRN: Mel Pop ([id number]) Date of : 1940 Age: 83 y.o. 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 [...] Goal: keep getting up, get back to [place]. Encounter Problems Encounter Problems (Active) Balance Patient [...] Treatment Minutes: 19 Minutes (Gait) Oanh Grimes LEARNING CENTER INSTRUCTOR Cosigned by Samantha Lora, PT at 08/14/2024 3:14 PM EST Images from the original note were not included. OCCUPATIONAL THERAPY [facility] Treatment Note Name/MRN: Mel Pop ([id number]) Date of : 1940 Age: 83 y.o. [facility] Discharge Recommendation: Prison Facility Prior Level of Function Prior Level [...] with 24/7 assist, home health OT and rn homecare. Pt. ( Who is totally BLIND), Would due better receiving therapy in her home due to familiar environment. If she can not get 24/7 assist at home then OT [place] Subjective Pt. Remains in her recliner eating [...] Date: 08/03/2024 PCP: Jared Evans MD Room#: [id number] A BRIEF HOSPITAL COURSE: Mel is a 83 y.o. female with past medical history below who presents with chief complaint listed above.Patient is an 83 y/o female who presented to [facility] early this AM from local OR for vomiting and diarrhea. Patient reported she [...] HOSPITAL) LABS: CBC: No results for input(s): WBC, [...] Devika Escobar MD Division of Hospitalist Medicine [facility] Hospitalist Progress Note 08/13/2024 Subjective: Admit Date: 08/03/2024 PCP: Jared Evans MD Room#: [id number] A BRIEF HOSPITAL COURSE: Mel is a 83 y.o. female with past medical history below who presents with chief complaint listed above.Patient is an 83 y/o female who presented to [facility] early this AM from local OR for vomiting and diarrhea. Patient reported she [...] ([facility]) Stroke (HCC) LABS: CBC: No results for [...] Kael Hayward DO Division of Hospitalist Medicine [facility] Nutrition Assessment Type and Reason for Visit: [...] No significant fluid accumulation (per flow sheets) Dry Cans Operator Strength: Not Performed Nutrition Assessment: 83 [...] On: Kcal/kg Weight Used for Energy Requirements: [place] Weight for Energy Calculation (kg): 54 kg Total Energy Requirements (kcals/day): 3781-5108 Weight Used for Protein Requirements: [place] Weight in Kg Used for Protein Requirements: [...] 160# 07/05) % Weight Change (Calculated): 12.2 [place] Body Weight (lbs) (Calculated): 119 lbs [place] Body Weight (Kg) (Calculated): 54 kg BMI [...] soon to determine Janki Fields RD Contact: *[phone] Hospitalist Progress Note 08/12/2024 Subjective: Admit Date: 08/03/2024 PCP: Jared Evans MD Room#: [id number] A BRIEF HOSPITAL COURSE: Mel is a 83 y.o. female with past medical history below who presents with chief complaint listed above.Patient is an 83 y/o female who presented to [facility] early this AM from local OR for vomiting and diarrhea. Patient reported she [...] Kael Hayward DO Division of Hospitalist Medicine [facility] Hospitalist Progress Note 08/11/2024 Subjective: Admit Date: 08/03/2024 PCP: Jared Evans MD Room#: [id number] A BRIEF HOSPITAL COURSE: Mel is a 83 y.o. female with past medical history below who presents with chief complaint listed above.Patient is an 83 y/o female who presented to [facility] early this AM from local OR for vomiting and diarrhea. Patient reported she [...] HOSPITAL) LABS: CBC: No results for input(s): WBC, [...] Hayward DO Division of Hospitalist Medicine [facility] Hospitalist Progress Note 08/10/2024 Subjective: Admit Date: 08/03/2024 PCP: Jared Evans MD Room#: [id number] A BRIEF HOSPITAL COURSE: Mel is a 83 y.o. female with past medical history below who presents with chief complaint listed above.Patient is an 83 y/o female who presented to [facility] early this AM from local OR for vomiting and diarrhea. Patient reported she [...] HOSPITAL) LABS: CBC: No results for input(s): WBC, [...] Kael Hayward DO Division of Hospitalist Medicine [facility] Hospitalist Progress Note 08/09/2024 Subjective: Admit Date: 08/03/2024 PCP: Jared Evans MD Room#: [id number] A BRIEF HOSPITAL COURSE: Mel is a 83 y.o. female with past medical history below who presents with chief complaint listed above.Patient is an 83 y/o female who presented to [facility] early this AM from local OR for vomiting and diarrhea. Patient reported she [...] ([facility]) Stroke (HCC) LABS: CBC: No results for [...] Kael Hayward DO Division of Hospitalist Medicine [facility] Images from the original note were not included. OCCUPATIONAL THERAPY [facility] Initial Evaluation Name/MRN: Mel Pop ([id number]) Evaluation Date: 08/08/2024 Date of : 1940 Admission Date: 08/03/2024 2:22 AM Age: 83 y.o. Room/Bed: N5[facility]8/N5[facility]8 A Discharge Recommendation: Prison Facility Assessment IMPRESSION: Pt would benefit from [...] Problem List Diagnosis Date Noted Aspiration pneumonitis ([facility]/HCC) (HCC) 08/03/2024 Visual disturbance, subjective 07/06/2024 Retinal [...] 03/07/2020 Osteopenia of left femoral neck 03/07/2020 ocean transportation intermediary current use of anticoagulant therapy 03/07/2020 Seasonal [...] Daily Activity Raw Score: 14 ADL Inpatient [facility] G-Code Modifier: CK Plan Pt would benefit [...] of Care supervision is transferred to a [facility] Therapy Services Occupational Therapist. Goals and/or treatment plan was established in collaboration with patient/family/other representatives. Shannon Fernandez MS, OTR/L Images from the original note were not included. PHYSICAL THERAPY [facility] Treatment Note Name/MRN: Mel Pop ([id number]) Date of : 1940 Age: 83 y.o. [facility] Discharge Recommendation: Prison Facility Equipment Needed: (pt uses [facility] LEARNING CENTER INSTRUCTOR) Prior Level of Function Prior Level [...] Distance (ft): 50 Quality of gait: slow jenin, v/c's for direction, SOB upon ambulation. Gaitbelt [...] Goal: keep getting up, get back to [facility]. Encounter Problems Encounter Problems (Active) Balance Patient [...] Date: 08/03/2024 PCP: Jared Evans MD Room#: N8-805/[id number] A BRIEF HOSPITAL COURSE: Mel is a 83 y.o. female with past medical history below who presents with chief complaint listed above.Patient is an 83 y/o female who presented to [facility] early this AM from local OR for vomiting and diarrhea. Patient reported she [...] Kael Hayward DO Division of Hospitalist Medicine [facility] Hospitalist Progress Note 08/07/2024 Subjective: Admit Date: 08/03/2024 PCP: Jared Evans MD Room#: N7-267/N7-979 A BRIEF HOSPITAL COURSE: Mel is a 83 y.o. female with past medical history below who presents with chief complaint listed above.Patient is an 83 y/o female who presented to [facility] early this AM from local OR for vomiting and diarrhea. Patient reported she [...] Kael Hayward DO Division of Hospitalist Medicine [facility] Hospitalist Progress Note 08/06/2024 Subjective: Admit Date: 08/03/2024 PCP: Jared Evans MD Room#: N5-048/N4-801 A BRIEF HOSPITAL COURSE: Mel is a 83 y.o. female with past medical history below who presents with chief complaint listed above.Patient is an 83 y/o female who presented to [facility] early this AM from local OR for vomiting and diarrhea. Patient reported she [...] Kayden Tatum MD Division of Hospitalist Medicine [facility] Images from the original note were not included. PHYSICAL THERAPY [facility] Initial Evaluation Name/MRN: Mel Pop ([id number]) Evaluation Date: 08/06/2024 Date of : 1940 Admission Date: 08/03/2024 2:22 AM Age: 83 y.o. [facility] Discharge Recommendation: Prison Facility (pt from SNF at baseline) Equipment Needed: (pt uses [facility] LEARNING CENTER INSTRUCTOR) Assessment IMPRESSION: Pt's Vincent scoring has [...] to SNF-level care (pt was receiving PT LEARNING CENTER INSTRUCTOR) Admitting Diagnosis: aspiration pneumonitis, + Norovirus. [...] OD Hearing: normal Social/Functional History Resident at [facility] at baseline. Goes to therapy and ambulates [...] Goal: keep getting up, get back to [facility]. Encounter Problems Encounter Problems (Active) Balance Patient [...] of Care supervision is transferred to a [facility] Therapy Services Physical Therapist. Goals and/or treatment plan was established in collaboration with patient/family/other representatives. Hospitalist Progress Note 08/05/2024 Subjective: Admit Date: 08/03/2024 PCP: Jared Evans MD Room#: N5-877/[id number] A BRIEF HOSPITAL COURSE: Mel is a 83 y.o. female with past medical history below who presents with chief complaint listed above.Patient is an 83 y/o female who presented to [facility] early this AM from local OR for vomiting and diarrhea. Patient reported she [...] Kayden Tatum MD Division of Hospitalist Medicine [facility] Images from the original note were not included. PHYSICAL THERAPY [facility] Name/MRN: Mel Pop ([id number]) Date: 08/05/2024 PT orders received per Vincent activity/mobility score. Patient currently with Vincent activity/mobility score greater than 2. Per therapy services guidelines, will discharge PT orders. Please place regular PT eval/treat orders if deemed appropriate. Padmaja Wilson PT Hospitalist Progress Note 08/04/2024 Subjective: Admit Date: 08/03/2024 PCP: Jared Evans MD Room#: N9-512/[id number] A BRIEF HOSPITAL COURSE: Mel is a 83 y.o. female with past medical history below who presents with chief complaint listed above.Patient is an 83 y/o female who presented to [facility] early this AM from local OR for vomiting and diarrhea. Patient reported she [...] [facility] LABS: CBC: Recent Labs 08/03/24 02508/04/24 [...] Kayden Tatum MD Division of Hospitalist Medicine [facility] documented in this encounter [facility] 08-15-2024 Plan of care note Problem: [...] My discharge needs are met Outcome: Progressing [facility] 08-15-2024 Note Formatting of this n ote might be different from the original. Authorization is pending with [facility]. Ref# [id number] to be DC'd to [facility]. Dtr Fidel Updated. CM to follow. [facility] 08-15-2024 Note Formatting of this n ote might be different from the original. Authorization is pending with [employer]. Ref# [id number] to be DC'd to [facility]. Dtr Fidel Updated. CM to follow. [facility] 08-15-2024 Note Patient progressing toward all goals. [facility] 08-15-2024 Plan of care note Patient progressing toward all goals. [facility] 08-14-2024 Plan of care note Problem: [...] My discharge needs are met Outcome: Progressing [facility] 08-14-2024 Hospital Discharge instructions Devika Escobar [...] detachment Hyperglycemia Osteopenia of left femoral neck ocean transportation intermediary current use of anticoagulant therapy Seasonal allergies [...] assistance Toileting Total assistance Feeding Minimal assistance Cvir Tech Minimal assistance Med Delivery yes Wound Care [...] Date: 08/03/2024 Discharging to Facility/ Agency Name: [facility] Address: [address] [place] [address] Fax: Dialysis Facility (if applicable) Name: Address: Dialysis Schedule: Phone: Fax: Charge Loader/Medical Dermatologist signature: ICIAN SECTION Name: Mel Pop Prognosis: good Condition at Discharge: stable Rehab Potential (if transferring to Rehab): good Recommended Labs or Other Treatments After Discharge: none The individual is being admitted to a nursing facility directly from an [facility] or a unit of a [facility] that is not operated by or licensed by [facility] under section 5119.14 or 5160-3-15.1 5 The individual requires the level of services provided by a nursing facility for the condition for which he or she was treated in the hospital and, Physician Certification: I certify the above information and transfer of Mel Pop is necessary for the continuing treatment of the diagnosis listed and that she requires half-way facility for less than 30 days. Update Admission H&P: No change in H&P PHYSICIAN SIGNATURE: documented in this encounter [facility] 08-14-2024 Note Formatting of this n ote might be different from the original. Pt has Been accepted to [facility]. Need PT/OT to see so auth to be started. Therapy to see today was sent. Called and spoke with Dtbraxton Verdin updates. SNF tasked w update. CM to follow. [facility] 08-14-2024 Note Formatting of this n ote might be different from the original. Pt has Been accepted to [facility]. Need PT/OT to see so auth to be started. Therapy to see today was sent. Called and spoke with braxton Cardozo. SNF tasked w update. CM to follow. [facility] 08-13-2024 Plan of care note Problem: [...] My discharge needs are met Outcome: Progressing [facility] 08-13-2024 Note Formatting of this n ote might be different from the original. Referral placed to [facility] via Careport per TCC request. Await review and response regarding ability to accept. TCC notified. Electronically signed by Christine Morataya [facility], 08-13-2024 at 3:00 PM [facility] 08-13-2024 Note Formatting of this n ote might be different from the original. Referral placed to SNF- [facility] via Careport per TCC request. Await review and response regarding ability to accept. TCC notified. Electronically signed by Christine Morataya [facility], 08-13-2024 at 3:00 PM [facility] 08-13-2024 Note Referral placed to [facility] via Careport per TCC request. Await review and response regarding ability to accept. TCC notified. Electronically signed by Christine Morataya [facility], 08-13-2024 at 3:[address] [facility] 08-13-2024 Note Formatting of this n ote might be different from the original. Called dgt to talk about dc planning. Dgt continues to tour SNFs this evening, since she was sick this weekend. Provided me with two more SNF choices. [facility]. Tasked [facility] to create these referrals. CM to follow. [facility] 08-13-2024 Note Formatting of this n ote might be different from the original. Called dgt to talk about dc planning. Dgt continues to tour SNFs this evening, since she was sick this weekend. Provided me with two more SNF choices. [facility] [place] Tasked PROFESSIONAL FEE CODER to create these referrals. CM to follow. [facility] 08-13-2024 Plan of care note Problem: [...] My discharge needs are met Outcome: Progressing [facility] 08-12-2024 Note Problem: Knowledge D eficit Goal: Patient/family/caregiver demonstrates understanding of disease process, treatment plan, medications, and discharge instructions Outcome: Progressing [facility] 08-12-2024 Plan of care note Problem: Knowledge Deficit Goal: Patient/family/caregiver demonstrates understanding of disease process, treatment plan, medications, and discharge instructions Outcome: Progressing [facility] 08-12-2024 Plan of care note Problem: [...] discharge needs are met Outcome: Progressing [facility] 08-11-2024 Plan of care note Problem: Knowledge [...] discharge needs are met Outcome: Progressing [facility] 08-11-2024 Note Formatting of this n ote might be different from the original. CM noted DC orders in place, Dgt touring facilities over the weekend. Moira. [facility] pending acceptance, updates sent via careport. [facility] 08-11-2024 Note Formatting of this n ote might be different from the original. CM noted DC orders in place, Dgt touring facilities over the weekend. [place]. [facility] pending acceptance, updates sent via careport. [facility] 08-11-2024 Plan of care note Problem: Knowledge [...] Interventions Goal: Assess Nutritional Intake Outcome: Progressing [facility] 08-10-2024 Note Formatting of this n ote might be different from the original. Referral placed to [facility] via Careport per TCC request. Await review and response regarding ability to accept. TCC notified. Electronically signed by Christine Morataya [facility], 08-10-2024 at 9:23AM [facility] 08-10-2024 Note Formatting of this n ote might be different from the original. Referral placed to [facility] via Careport per TCC request. Await review and response regarding ability to accept. TCC notified. Electronically signed by Christine Morataya CMA, 08-10-2024 at 9:23AM [facility] 08-10-2024 Note Referral placed to [facility] via Careport per TCC request. Await review and response regarding ability to accept. TCC notified. Electronically signed by Christine Morataya [facility], 08-10-2024 at 9:23AM [facility] 08-10-2024 Note Formatting of this n ote might be different from the original. Pt was to be DC to [facility]. Found out pt and dtr didn't want to return to [facility]. SNF was made aware. On adm spoke with Dtr Fidel, ok to return. Called Dtr this am, after speaking with pt and things that happened and didn't happen. Fidel requesting a referral to be made to [facility]. PROFESSIONAL FEE CODER tasked to send. A SNF list was emailed to [email or web address]. She will tour facilities over weekend. CM to follow. [facility] 08-10-2024 Note Formatting of this n ote might be different from the original. Pt was to be DC to [facility]. Found out pt and dtr didn't want to return to [facility]. SNF was made aware. On adm spoke with Dtr Fidel, ok to return. Called Dtr this am, after speaking with pt and things that happened and didn't happen. Fidel requesting a referral to be made to [facility]. [facility] tasked to send. A SNF list was emailed to [email or web address]. She will tour facilities over weekend. CM to follow. [facility] 08-10-2024 Plan of care note Problem: Knowledge [...] Interventions Goal: Assess Nutritional Intake Outcome: Progressing [facility] 08-09-2024 Note Formatting of this n ote might be different from the original. Discharge summary and med list sent via Careport to [facility] per TCC request. [facility] 08-09-2024 Note Formatting of this n ote might be different from the original. Discharge summary and med list sent via Careport to [facility] per [facility] request. [facility] 08-09-2024 Note Discharge summary an d med list sent via Careport to [facility] per TCC request. [facility] 08-09-2024 Note Formatting of this n ote might be different from the original. Auth received. Patient with active dc orders. Transportation arranged through [employer] with estimated picker packer time of 1930. VM left with daughter Fidel along with 3N phone number to call with questions. Bedside RN aware. Facility updated. [facility] call centre supervisor sent orders to [facility]. [facility] 08-09-2024 Note Formatting of this n ote might be different from the original. Auth received. Patient with active dc orders. Transportation arranged through [employer] with estimated picker packer time of 1930. VM left with milady Stokes along with 3N phone number to call with questions. Bedside RN aware. Facility updated. [facility] call centre supervisor sent orders to [facility]. [facility] 08-09-2024 Note Formatting of this n ote might be different from the original. hatchery manager was asked to assist with setting up transport back to [facility] this evening. power shovel mechanic had already done so, but this consulting services manager called daughter to inform her of discharge and transport set up. Daughter did not wish patient to return to the SNF. Laboratory Worker told her that patient is medically stable for dc and that she should continue the discussion with the executive secretary social welfare and district court administrator at The snf, and also get options from [employer]. Coordinator was to message the snf about return this evening via CarePort. [facility] 08-09-2024 Note Formatting of this n ote might be different from the original. hatchery manager was asked to assist with setting up transport back to [facility] this evening. power shovel mechanic had already done so, but this consulting services manager called daughter to inform her of discharge and transport set up. Daughter did not wish patient to return to the SNF. Laboratory Worker told her that patient is medically stable for dc and that she should continue the discussion with the executive secretary social welfare and district court administrator at The snf, and also get options from [employer]. Coordinator was to message the snf about return this evening via [facility]Port. [facility] 08-09-2024 Note [facility] 08-09-2024 Hospital course Narrative Hospitalist Discharge [...] an 83 y/o female who presented to [facility] early this AM from local OR for vomiting and diarrhea. Patient reported she [...] Ellipta 100-62.5-25 MCG/ACT aerosol powder Generic drug: Bhhwdcqihee-Xwtpgnyfg-Leetmk STOP taking these medications enoxaparin 80 MG/0.8ML [...] Complexity: follow up within 7-14 calendar days (74761) [x] Severe Complexity: follow up within 7 calendar days (61939) Follow up Testing, Pending results or Referrals [...] Hayward DO Division of Hospitalist Medicine [facility] 08/09/2024, 4:23 PM documented in this encounter [facility] 08-09-2024 Note Formatting of this n ote might be different from the original. Updated PT/OT notes placed to [facility] Ashu Tomlin via Careport per TCC request. Await review and response regarding ability to accept. TCC notified. Electronically signed by PROFESSIONAL FEE CODER Aracelis Gardiner [employer] 08-09-2024 Note Formatting of this n ote might be different from the original. Updated PT/OT notes placed to SNF [facility] via Careport per TCC request. Await review and response regarding ability to accept. TCC notified. Electronically signed by [facility] Aracelis Gardiner [facility] 08-09-2024 Note Formatting of this n ote might be different from the original. Patient is medically ready for dc. PT/OT both continuing to recommend SNF. [facility] consulting services manager asked to start auth. Plan to dc back to [facility] pending auth [facility] 08-09-2024 Note Formatting of this n ote might be different from the original. Patient is medically ready for dc. PT/OT both continuing to recommend SNF. [facility] consulting services manager asked to start auth. Plan to dc back to [facility] pending auth [facility] 08-08-2024 Note Formatting of this n ote might be different from the original. I was off Yesterday, PT note was in from Tuesday. Therapy to see today was sent out to OT Tuesday to see yesterday. Pt was not seen. I did sent a therapy to see today to PT/OT so an auth can be started. Pt will Be Dc'd to [facility]. CM to follow. [facility] 08-08-2024 Note Formatting of this n ote might be different from the original. I was off Yesterday, PT note was in from Tuesday. Therapy to see today was sent out to OT Tuesday to see yesterday. Pt was not seen. I did sent a therapy to see today to PT/OT so an auth can be started. Pt will Be Dc'd to [facility]. CM to follow. [employer] 08-07-2024 Plan of care note Problem: Knowledge Deficit Goal: Patient/family/caregiver demonstrates understanding of disease process, treatment plan, medications, and discharge instructions Outcome: Progressing Problem: Potential for Compromised Skin Integrity Goal: Skin Integrity is Maintained or Improved Outcome: Progressing Goal: Nutritional status is improving Outcome: Progressing [employer] 08-07-2024 Plan of care note Problem: Knowledge [...] Interventions Goal: Assess Nutritional Intake Outcome: Progressing [employer] 08-07-2024 Note Formatting of this n ote might be different from the original. Case Management Progress Note: Patient remains on 5N for concern with aspiration 2/2 vomiting. Discharge Plan: Return to [facility]. Therapy eval needed for precert. TCC to assist and follow as needed. [employer] 08-07-2024 Note Formatting of this n ote might be different from the original. Case Management Progress Note: Patient remains on 5N for concern with aspiration 2/2 vomiting. Discharge Plan: Return to [facility]. Therapy eval needed for precert. TCC to assist and follow as needed. [facility] 08-07-2024 Plan of care note Problem: Knowledge [...] Goal: Assess Nutritional Intake Outcome: Progressing [facility] 08-06-2024 Plan of care note Problem: Knowledge [...] Goal: Assess Nutritional Intake Outcome: Progressing [facility] 08-06-2024 Note Formatting of this n ote might be different from the original. Pt cont's on IV AtBs'. Plan is for pt to return to [facility]. Auth and HECTOR needed prior to DC. CM to follow. [facility] 08-06-2024 Note Formatting of this n ote might be different from the original. Pt cont's on IV AtBs'. Plan is for pt to return to [facility]. Auth and HECTOR needed prior to DC. CM to follow. [facility] 08-06-2024 Note Formatting of this n ote might be different from the original. Per attending pt ready for DC. Pt will return to [facility]. Pt needs PT/OT to start auth Therapy to see put in for alistair so auth can be started. HECTOR will need completed. CM to follow. [facility] 08-06-2024 Note Formatting of this n ote might be different from the original. Per attending pt ready for DC. Pt will return to [facility]. Pt needs PT/OT to start auth Therapy to see put in for alistair so auth can be started. HECTOR will need completed. CM to follow. [facility] 08-06-2024 Consult note Associated Order (s): IP [...] assess Fluid Accumulation: No significant fluid accumulation Dry Cans Operator Strength: Not Performed Nutrition Assessment: Pt hx HTN, stroke, COPD, CKD, IBS. Admitted w/ vomiting and diarrhea. +norovirus. Started on abx for concern of aspiration pna. Pt's symptoms have improved during admission. Consuming and tolerating CLD. Medically stable for discharge back to SNF per notes. Estimated Daily Nutrient Needs: Energy Requirements Based On: Kcal/kg Weight Used for Energy Requirements: [place] Weight for Energy Calculation (kg): 54 kg Total Energy Requirements (kcals/day): 7013-1759 Weight Used for Protein Requirements: [place] Weight in Kg Used for Protein Requirements: [...] 160# 07/05) % Weight Change (Calculated): 12.2 [place] Body Weight (lbs) (Calculated): 119 lbs [place] Body Weight (Kg) (Calculated): 54 kg BMI [...] to determine Gabriella Michelle RD, LD Contact: [phone] [facility] 08-06-2024 Consult note Associated Order (s): [...] assess Fluid Accumulation: No significant fluid accumulation Dry Cans Operator Strength: Not Performed Nutrition Assessment: Pt hx HTN, stroke, COPD, CKD, IBS. Admitted w/ vomiting and diarrhea. +norovirus. Started on abx for concern of aspiration pna. Pt's symptoms have improved during admission. Consuming and tolerating CLD. Medically stable for discharge back to SNF per notes. Estimated Daily Nutrient Needs: Energy Requirements Based On: Kcal/kg Weight Used for Energy Requirements: [place] Weight for Energy Calculation (kg): 54 kg Total Energy Requirements (kcals/day): 7222-3197 Weight Used for Protein Requirements: [place] Weight in Kg Used for Protein Requirements: [...] 160# 07/05) % Weight Change (Calculated): 12.2 [place] Body Weight (lbs) (Calculated): 119 lbs [place] Body Weight (Kg) (Calculated): 54 kg BMI [...] to determine Gabriella Michelle RD, LD Contact: [phone] documented in this encounter [facility] 08-06-2024 Plan of care note Problem: Knowledge Deficit Goal: Patient/family/caregiver demonstrates understanding of disease process, treatment plan, medications, and discharge instructions Outcome: Progressing Problem: Potential for Compromised Skin Integrity Goal: Skin Integrity is Maintained or Improved Outcome: Progressing Goal: Nutritional status is improving Outcome: Progressing Problem: Urinary Incontinence Goal: Perineal skin integrity is maintained or improved Outcome: Progressing [facility] 08-05-2024 Plan of care note Problem: Knowledge Deficit Goal: Patient/family/caregiver demonstrates understanding of disease process, treatment plan, medications, and discharge instructions Outcome: Progressing Problem: Potential for Compromised Skin Integrity Goal: Skin Integrity is Maintained or Improved Outcome: Progressing Goal: Nutritional status is improving Outcome: Progressing Problem: Urinary Incontinence Goal: Perineal skin integrity is maintained or improved Outcome: Progressing [facility] 08-04-2024 Plan of care note Problem: Knowledge Deficit Goal: Patient/family/caregiver demonstrates understanding of disease process, treatment plan, medications, and discharge instructions Outcome: Progressing Problem: Potential for Compromised Skin Integrity Goal: Skin Integrity is Maintained or Improved Outcome: Progressing Goal: Nutritional status is improving Outcome: Progressing Problem: Urinary Incontinence Goal: Perineal skin integrity is maintained or improved Outcome: Progressing [facility] 08-04-2024 Nurse Note Bedside swallow completed. Pt passed and tolerated well tolerated well. [facility] 08-04-2024 Plan of care note Problem: Knowledge Deficit Goal: Patient/family/caregiver demonstrates understanding of disease process, treatment plan, medications, and discharge instructions Outcome: Progressing Problem: Potential for Compromised Skin Integrity Goal: Skin Integrity is Maintained or Improved Outcome: Progressing Goal: Nutritional status is improving Outcome: Progressing Problem: Urinary Incontinence Goal: Perineal skin integrity is maintained or improved Outcome: Progressing [facility] 08-03-2024 Plan of care note Problem: Knowledge [...] 0842 by Lima Saenz RN Outcome: Progressing [facility] 08-03-2024 Note Formatting of this n ote might be different from the original. Return referral placed to [facility] via [facility] per TCC request. Await review and response regarding ability to accept. TCC notified. [facility] 08-03-2024 Note Formatting of this n ote might be different from the original. Return referral placed to [facility] via [facility] per TCC request. Await review and response regarding ability to accept. TCC notified. [facility] 08-03-2024 Note Return referral plac ed to [facility] via [facility] per TCC request. Await review and response regarding ability to accept. TCC notified. [facility] 08-03-2024 Note Formatting of this n ote might be different from the original. Pt to ED w N/V/Diarrhea, was Dx w Aspiration pneumonitis. Started on IV ATB's. Called pt's Dtr, Fidel, . Pt is from [facility]. Plan on returning. [facility] tasked to send a return referral. [facility] 08-03-2024 Note Formatting of this n ote might be different from the original. Pt to ED w N/V/Diarrhea, was Dx w Aspiration pneumonitis. Started on IV ATB's. Called pt's Dtr, Fidel, . Pt is from [facility]. Plan on returning. [facility] tasked to send a return referral. [employer] 08-03-2024 History and physical note Attending History and Physical Admit Date: 08/03/2024 PCP: Jared Evans MD CHIEF COMPLAINT: vomiting/diarrhea Reason for Admission: aspiration pneumonitis History Obtained From: patient HISTORY OF PRESENT ILLNESS: Mel is a 83 y.o. female with past medical history below who presents with chief complaint listed above.Patient is an 83 y/o female who presented to [facility] early this AM from local OR for vomiting and diarrhea. Patient reported she [...] Resource Strain: Low Risk (06/20/2024) Received from [facility] Medical Overall Financial Resource Strain [...] min Stress: Patient Unable To Answer (08/03/2024) [employer] - Occupational Stress Questionnaire Feeling of Stress : Patient unable to answer Social Connections: Unknown (08/03/2024) Social Connection and Isolation Panel [NHANES] Frequency of Communication with Friends and Family: Patient unable to answer Frequency of Social Gatherings with Friends and Family: Patient unable to answer Attends Sikh Services: Patient unable to answer Active Member of Clubs or Organizations: Patient unable to answer Attends Club or Organization Meetings: Never Marital Status: Patient unable to answer Recent Concern: Social Connections - Moderately Isolated (06/20/2024) Received from [facility] Medical Social Connection and Isolation Panel [NHANES] Frequency of Communication with Friends and Family: More than three times a week Frequency of Social Gatherings with Friends and Family: Once a week Attends Sikh Services: More than 4 times per year [...] mgmt was pursued: - inpatient admission to [facility] tele - check stool studies and [...] - DO NOT do CPR, intubation] [_] [DNR-JUNIOR WEB DESIGNER - Comfort care only] [_] DNR form [...] Shivani Dimas PA-C Division of Hospitalist Medicine [facility] Cosigned by Abbi Long DO at 08/03/2024 [...] sounds present no guarding or regular rigidity [employer] Work Phone: 08-03-2024 Note [employer] [facility] 08-03-2024 History and physical note Attending History and Physical Admit Date: 08/03/2024 PCP: Jared Evans MD CHIEF COMPLAINT: vomiting/diarrhea Reason for Admission: aspiration pneumonitis History Obtained From: patient HISTORY OF PRESENT ILLNESS: Mel is a 83 y.o. female with past medical history below who presents with chief complaint listed above.Patient is an 83 y/o female who presented to [facility] early this AM from local OR for vomiting and diarrhea. Patient reported she [...] Resource Strain: Low Risk (06/20/2024) Received from [facility] Medical Overall Financial Resource Strain [...] min Stress: Patient Unable To Answer (08/03/2024) [employer] - Occupational Stress Questionnaire Feeling of Stress : Patient unable to answer Social Connections: Unknown (08/03/2024) Social Connection and Isolation Panel [NHANES] Frequency of Communication with Friends and Family: Patient unable to answer Frequency of Social Gatherings with Friends and Family: Patient unable to answer Attends Sikh Services: Patient unable to answer Active Member of Clubs or Organizations: Patient unable to answer Attends Club or Organization Meetings: Never Marital Status: Patient unable to answer Recent Concern: Social Connections - Moderately Isolated (06/20/2024) Received from [facility] Social Connection and Isolation Panel [NHANES] Frequency of Communication with Friends and Family: More than three times a week Frequency of Social Gatherings with Friends and Family: Once a week Attends Sikh Services: More than 4 times per year [...] mgmt was pursued: - inpatient admission to [facility] tele - check stool studies and [...] - DO NOT do CPR, intubation] [_] [DNR-JUNIOR WEB DESIGNER - Comfort care only] [_] DNR form [...] Shivani Dimas PA-C Division of Hospitalist Medicine [facility] Cosigned by Abbi Long DO at 08/03/2024 [...] or regular rigidity documented in this encounter [facility] 08-03-2024 Plan of care note Problem: Potential for Compromised Skin Integrity Goal: Skin Integrity is Maintained or Improved 08/03/2024 0842 by Lima Saenz RN Outcome: Progressing 08/03/2024 0842 by Lima Saenz RN Outcome: Progressing Problem: Potential for Compromised Skin Integrity Goal: Nutritional status is improving 08/03/2024 08 by Lima Saenz RN Outcome: Progressing 08/03/2024 08 by Lima Saenz RN Outcome: Progressing [facility] 08-03-2024 Plan of care note Problem: Knowledge Deficit Goal: Patient/family/caregiver demonstrates understanding of disease process, treatment plan, medications, and discharge instructions Outcome: Progressing Problem: Potential for Compromised Skin Integrity Goal: Skin Integrity is Maintained or Improved Outcome: Progressing [facility] 08-03-2024 Emergency department Note Pt placed in roundtrip [facility] 08-03-2024 Emergency department Note Pt placed [...] who presents to the emergency department from [facility] for acute onset nausea/vomiting/diarrhea x 3 episodes that began 45 minutes prior to arrival. No blood in emesis or diarrhea. Given single dose of Zofran by [facility] staff following first episode but subsequently soon [...] 45 minutes prior to ED transport for [facility]. [facility] reports a second resident with similar symptoms earlier today. No known flu or COVID exposures. Patient denying other flu or COVID symptoms such as headache, myalgias, fevers, congestion, cough. Nursing Notes were reviewed. Limitations to history: None Outside historians: [facility] staff (Jabari) REVIEW OF SYSTEMS Review of [...] Food Insecurity (07/09/2024) Received from [facility] Hunger Vital Sign Worried About Running Out of Food in the Last Year: Never true Ran Out of Food in the Last Year: Never true Transportation Needs: No Transportation Needs (07/09/2024) Received from [facility] PRAPARE - Transportation Lack of Transportation (Medical): No Lack of Transportation (Non-Medical): No Physical Activity: Inactive (04/04/2024) Exercise Vital Sign Days of Exercise per Week: 0 days Minutes of Exercise per Session: 0 min Stress: No Stress Concern Present (06/19/2024) Received from [facility] [employer] [facility] - Occupational Stress Questionnaire Feeling of Stress : Not at all Social Connections: Moderately Isolated (06/20/2024) Received from [facility] Social Connection and Isolation Panel [NHANES] Frequency of Communication with Friends and Family: More than three times a week Frequency of Social Gatherings with Friends and Family: Once a week Attends Sikh Services: More than 4 times per year Active Member of Clubs or Organizations: No Attends Club or Organization Meetings: Never Marital Status: Intimate Partner Violence: Not At Risk (06/19/2024) Received from [facility] Domestic Abuse Assessment Do you feel safe in your relationships at home?: Yes Physical Abuse: Denies Verbal Abuse: Denies Housing Stability: Low Risk (07/09/2024) Received from [facility] Housing Stability Vital Sign Unable to [...] In compliance with this authorization, please visit www.fda.gov/media/918996/download or www.fda.gov/media/471490/download to access the applicable information sheets. LIPASE [...] who presents to the emergency department from [facility] for acute onset nausea/vomiting/diarrhea x 3 episodes that began 45 minutes prior to arrival. No blood in emesis or diarrhea. Given single dose of Zofran by [facility] staff following first episode of emesis but [...] 45 minutes prior to ED transport for [facility]. [facility] reports a second resident with similar symptoms [...] baseline. Patient admitted to medical service at [facility] under Dr. Parrish. ED Medications managed: [...] DO 08/03/24 0422 documented in this encounter [facility] 08-03-[address] and ED xray notified that patient is ready [facility] 08-03-2024 Physician Emergency department Note EMERGENCY [...] who presents to the emergency department from [facility] for acute onset nausea/vomiting/diarrhea x 3 episodes that began 45 minutes prior to arrival. No blood in emesis or diarrhea. Given single dose of Zofran by [facility] staff following first episode but subsequently soon [...] 45 minutes prior to ED transport for [facility]. [facility] reports a second resident with similar symptoms earlier today. No known flu or COVID exposures. Patient denying other flu or COVID symptoms such as headache, myalgias, fevers, congestion, cough. Nursing Notes were reviewed. Limitations to history: None Outside historians: [facility] staff (Jabari) REVIEW OF SYSTEMS Review of [...] ([facility]) Stroke (HCC) SURGICAL HISTORY Past Surgical History: [...] Food Insecurity (07/09/2024) Received from [facility] Hunger Vital Sign Worried About Running Out of Food in the Last Year: Never true Ran Out of Food in the Last Year: Never true Transportation Needs: No Transportation Needs (07/09/2024) Received from [facility] PRAPARE - Transportation Lack of Transportation (Medical): No Lack of Transportation (Non-Medical): No Physical Activity: Inactive (04/04/2024) Exercise Vital Sign Days of Exercise per Week: 0 days Minutes of Exercise per Session: 0 min Stress: No Stress Concern Present (06/19/2024) Received from [facility] [employer] [employer] [facility] - Occupational Stress Questionnaire Feeling of Stress : Not at all Social Connections: Moderately Isolated (06/20/2024) Received from [facility] Social Connection and Isolation Panel [NHANES] Frequency of Communication with Friends and Family: More than three times a week Frequency of Social Gatherings with Friends and Family: Once a week Attends Sikh Services: More than 4 times per year Active Member of Clubs or Organizations: No Attends Club or Organization Meetings: Never Marital Status: Intimate Partner Violence: Not At Risk (06/19/2024) Received from [facility] Domestic Abuse Assessment Do you feel safe in your relationships at home?: Yes Physical Abuse: Denies Verbal Abuse: Denies Housing Stability: Low Risk (07/09/2024) Received from [facility] Housing Stability Vital Sign Unable to [...] No bowel dilatation Report Dictated on Workstation: [email or web address] Electronically Signed By: Ming Fry MD Electronically Signed Date/Time: 08/03/2024 4:05 AM EST XR chest 1 view Final Result No acute abnormality Report Dictated on Workstation: [email or web address] Electronically Signed By: Ming Fry MD Electronically [...] In compliance with this authorization, please visit www.fda.gov/media/795337/download or www.fda.gov/media/697661/download to access the applicable information sheets. LIPASE [...] who presents to the emergency department from [facility] for acute onset nausea/vomiting/diarrhea x 3 episodes that began 45 minutes prior to arrival. No blood in emesis or diarrhea. Given single dose of Zofran by [facility] staff following first episode of emesis but [...] 45 minutes prior to ED transport for [facility]. [facility] reports a second resident with similar symptoms [...] baseline. Patient admitted to medical service at [facility] under Dr. Parrish. ED Medications managed: [...] Medicine Provider Mariana King DO 08/03/24 0422 [facility] 08-01-2024 Instructions Savana Lopez MD - 08/01/2024 1:06 PM EST - Continue Pred forte 4x / day right eye - Stop Cipro - Stop Brimonidine - Continue erythromycin antibiotic ointment as needed - Continue Atropine daily RIGHT eye - Continue Timolol 2x / day RIGHT EYE documented in this encounter [facility] 08-01-2024 Note HNO ID: [id number] Author: SAVANA LOPEZ MD Service: ? 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 documented in this encounter [facility] 07-30-2024 Note HNO ID: [id number] Author: JOHN PHELAN MD Service: ? Author [...] agree with all of its relevant components. [facility] 07-30-2024 Note HNO ID: [id number] Author: JOHN PHELAN MD Service: ? Author [...] agree with all of its relevant components. [facility] 07-27-2024 Instructions Nicolas Sahu MD - 07/27/2024 [...] day Ciprofloxacin (flores cap) 4x daily Atropine (dredge or barge shore hand) 1x daily Continue timolol (yellow cap) 2x [...] C Trouble breathing Contact Dr. Savana Lopez [phone] from 8am-5pm During non-business hours, please call [phone] or ext [phone] and ask for the eye doctor wallpaper consultant. documented in this encounter [facility] 07-27-2024 Note HNO ID: [id number] Author: NICOLAS SAHU MD Service: ? Author [...] scheduled Nicolas Sahu MD Vitreoretinal Surgery Fellow [facility] 07-27-2024 History of Present illness Narrative Post-op [...] Fellow documented in this encounter [facility] 07-27-2024 Note HNO ID: [id number] Author: MIKHAIL NICHOLS APRN.EYELET MAKER Service: ? Author Type: Nurse Supervisor Tunnel Heading Type: Anesthesia Procedure Notes Filed: 07/27/2024 11:25 Note Text: ANESTHESIOLOGY PROCEDURE NOTE Airway General Information Procedure Start Time/Medication Administration: 07/27/2024 11:21 AM Procedure End Time: 07/27/2024 11:24 AM Staffing Anesthesiologist: Robinson Brunner MD EYELET MAKER: Mikhail Nichols APRN.EYELET MAKER Performed by: anesthesiologist and EYELET MAKER Indications and Patient Condition Indications for airway management: anesthesia Preoxygenated: yes Patient position: sniffing Method: asleep Final Airway Details Final airway type: supraglottic airway Number of attempts at approach: 1 Final Supraglottic Airway: LMA Classic Size 4 Seal Adequate: yes Failed airway: no Unrecognized esophageal intubation: no SIGNATURE: Mikhail Nichols APRN.EYELET MAKER PATIENT NAME: Mel Castillo DATE: July 27, 2024 TIME: 11:24 AM CSN: [id number] [facility] 07-24-2024 Note Date of Procedure 07/23/2024. Human Geography Faculty Member Information Caul Fat Puller: WESLEY. Start time: 10:44 AM. No view. In wheelchair. Unable to get low enough for photo in downgaze without discomfort. Notes Hazy view, VH; choroidals; possible RD ZEISS 07-24-2024 Note Date of Procedure 07/23/2024. Human Geography Faculty Member Information STEWART Donovan 07/23/2024 11:24 AM Reviewed [...] 20mg - Decrease atropine daily right eye (dredge or barge shore hand) - Continue prednisolone QID right eye (pink [...] than 30 days before your surgery. My hand frame surgical elastic knitter will be contacting you to schedule this appointment. Your exact time of surgery will not be determined until the day before surgery. My hand frame surgical elastic knitter will call you the day before your surgery to advise you what time to arrive at the [facility] on the first floor at the [facility]. My hand frame surgical elastic knitter is Gaston, her number is [phone] Please do no wear contact lenses. We [...] retina fellow. It will be at the [facility] on the 2nd floor. We [...] Regine Gan in the Pre-anesthesia Consultation Clinic ([phone]) to get instructions on their use before [...] Regine Gan or a Pre-Anesthesia Testing steam cleaner at [phone]. documented in this encounter [facility] 07-23-2024 Note HNO ID: [id number] Author: SAVANA LOPEZ MD Service: ? 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 documented in this encounter [facility] 07-18-2024 Note HNO ID: [id number] Author: JACI JUAREZ RN Service: Nursing Author Type: Registered Nurse Type: Progress Notes Filed: 07/18/2024 14:08 Note Text: Report given to nurse at [facility]. Transport running behind schedule. [facility] 07-16-2024 Note HNO ID: [id number] Author: MICHAEL SOARES MD Service: Ophthalmology Author Type: Resident Type: Plan of Care Filed: 07/16/2024 21:02 Note Text: Patient evaluated today at [facility] by retina attending Dr. Lopez. 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 - I will see her in 1 week for repeat B-scan OD / Optos OD [facility] 07-16-2024 Note HNO ID: [id number] Author: ALAINA TIPTON RN Service: ? Author [...] Doctor Josep, on the division, and aware. [facility] 07-16-2024 Note HNO ID: [id number] Author: TRACEY NANCE RN Service: Care Management Author Type: Registered Nurse Type: Care Mgt Progress Note Filed: 07/16/2024 16:49 Note Text: CARE MANAGEMENT PROGRESS NOTE SERVICE DATE: 07/16/2024 SERVICE TIME: 1:04 PM LOS: 9 days Post-Acute Discharge Planning Patient Goal(s): Increase strength [place] of Choice Explained: Discharge Planning Participant(s): Patient/Family Comments: Anticipated # of Days Until Discharge: 0 Transport at Discharge: Needs Prior to Discharge: Needs Prior to Discharge: OT/PT Evaluation Post-Acute Discharge Plan: Discharge to [facility] per FOC. Await updated PT for pre cert initiation. SIGNATURE: Tracey Nance RN PATIENT NAME: Mel Castillo DATE: July 16, 2024 TIME: 1:04 PM [facility] 07-16-2024 Note Date of Procedure 07/16/2024. Human Geography Faculty Member Information Caul Fat Puller: Arin Vital. Start time: 8:56 AM. Stop time: 8:56 AM. Notes OD only; Hard view [address] [facility] 07-16-2024 Note Date of Procedure 07/16/2024. Human Geography Faculty Member Information STEWART Donovan 07/16/2024 9:34 AM . [...] choroidals (not yet appositional) - Evaluated at [facility] 07/12/24 with intense nausea and multiple episodes [...] be admitted for this but may need half-way facility due to limited vision in her [...] components. documented in this encounter [facility] 07-16-2024 Note HNO ID: [id number] Author: SAVANA LOPEZ MD Service: ? Author [...] choroidals (not yet appositional) - Evaluated at [facility] 07/12/24 with intense nausea and multiple episodes [...] to HTN (SBP 199/99 at presentation to [facility]) and anticoagulation that led to angle closure [...] be admitted for this but may need half-way facility due to limited vision in her [...] of its relev (more content not included)... [facility] 07-16-2024 Note HNO ID: [id number] Author: BRIANA PRITCHARD MD Service: General Internal Medicine Author Type: Physician Type: Progress Notes Filed: 07/16/2024 14:26 Note Text: Internal Medicine - Dae Chaudhry Progress Note Patient Name: Mel Castillo Patient Location: [facility] 031/H060-31 Admission Date: 07/07/2024 Length of Stay: 9 Primary Service: DAE Chaudrhy Staff: Briana Pritchard MD Primary Service: Dae Chaudhry INTERVAL HISTORY: - No acute events overnight. Bradycardic to 50s overnight but this AM HDS and afebrile - This AM [facility] appointment Objective MEDICATIONS: Current Facility-Administered [...] Drain Duration External Collection Device 07/15/24 1000 [facility] <1 day Intake/Output 07/12/24 0700 - [...] PMH of COPD (more content not included)... [facility] 07-15-2024 Note HNO ID: [id number] Author: OTILIO GERBER MD Service: Ophthalmology Author [...] to HTN (SBP 199/99 at presentation to [facility]) that caused angle closure and elevated IOP [...] BRING PATIENT DOWN FOR FOLLOW UP AT [facility] - Post-op precautions reviewed, including: Signs and symptoms of endophthalmitis, and retinal detachment warning signs reviewed, including increasing floaters, flashes or changes in peripheral vision. [facility] 07-15-2024 Note HNO ID: [id number] Author: BRIANA PRITCHARD MD Service: General Internal Medicine Author Type: Physician Type: Progress Notes Filed: 07/15/2024 12:59 Note Text: Internal Medicine - Dae Chaudhry Progress Note Patient Name: Mel Castillo Patient Location: [place] [id number] Admission Date: 07/07/2024 Length of Stay: [...] 9.1 9.3 9.3 (more content not included)... [facility] 07-14-2024 Note HNO ID: [id number] Author: BRIANA PRITCHARD MD Service: Hospital Medicine Author Type: Physician Type: Progress Notes Filed: 07/14/2024 13:37 Note Text: Internal Medicine - Dae Chaudhry Progress Note Patient Name: Mel Castillo Patient Location: [place] [id number]- Admission Date: 07/07/2024 Length of Stay: 7 [...] Castillo is a (more content not included)... [facility] 07-14-2024 Note HNO ID: [id number] Author: NICOLAS SAHU MD Service: Ophthalmology Author [...] to HTN (SBP 199/99 at presentation to [facility]) that caused angle closure and elevated IOP [...] vision. Nicolas Sahu MD Vitreoretinal Surgery Fellow [facility] 07-13-2024 Note HNO ID: [id number] Author: MARCIA MARTINS APRN.EYELET MAKER Service: ? Author Type: Nurse Supervisor Tunnel Heading Type: Anesthesia Procedure Notes Filed: 07/13/2024 12:43 Note Text: ANESTHESIOLOGY PROCEDURE NOTE Airway General Information Procedure Start Time/Medication Administration: 07/13/2024 12:28 PM Procedure End Time: 07/13/2024 12:42 PM Patient location during procedure: OR Timeout Performed Pre-procedure: timeout performed Consent Obtained: Yes Patient identity confirmed: arm band, care steam cleaner and patient Staffing EYELET MAKER: Marcia Martins APRN.EYELET MAKER Performed by: CARIE Indications and Patient Condition Indications for airway management: anesthesia Preoxygenated: yes anesthesia circuit Method: sleep Difficult Mask: No Final Airway Details Final airway type: supraglottic airway Number of attempts at approach: 1 Final Supraglottic Airway: Supraglottic airway: ambu auraonce. Size 4 Seal Adequate: yes Failed airway: no Unrecognized esophageal intubation: no Airway not difficult Comments atraumatic SIGNATURE: Marcia Martins APRN.EYELET MAKER PATIENT NAME: Mel Castillo DATE: July 13, 2024 TIME: 12:42 PM CSN: [id number] [facility] 07-13-2024 Note HNO ID: [id number] Author: FELICIA LEVY MD Service: General Internal [...] of vision now s/p laser iridotomy at [facility] then trasnferred to [facility] for further management. S/p multiple peripheral iridotomies [...] Patient Name: Mel Castillo Patient Location: [facility]/H060-31 Admission Date: 07/07/2024 Length of Stay: 6 [...] mg ORAL DAILY (more content not included)... [facility] 07-12-2024 Note HNO ID: [id number] Author: TRACEY NANCE RN Service: Care Management Author Type: Registered Nurse Type: Care Mgt Progress Note Filed: 07/12/2024 16:50 Note Text: CARE MANAGEMENT PROGRESS NOTE SERVICE DATE: 07/12/2024 SERVICE TIME: 4:46 PM LOS: 5 days Post-Acute Discharge Planning Patient Goal(s): Increase strength [place] of Choice Explained: Discharge Planning Participant(s): Patient/Family [...] DATE: July 12, 2024 TIME: 4:46 PM [facility] 07-12-2024 Note Date of Procedure 07/12/2024. Human Geography Faculty Member Information CHAR Veliz ROUB 07/12/2024 12:15 PM . Notes B scan OD: From wheelchair. Patient vomiting during this visit. Best images possible. 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 Possible increased height maximum now at 12:00 measuring 10.0 mm. 2) Not able to assess for mobility today due to patient discomfort 3) SRF over choroidals in three quadrants. [facility] 07-12-2024 Note Date of Procedure 07/12/2024. Human Geography Faculty Member Information Caul Fat Puller: JACQUELINE. Imaging Comments: Limited exam due to patient discomfort-best images possible . Notes Worsening choroid detachments [facility] 07-12-2024 Note HNO ID: [id number] Author: THOMAS SCHMITZ MD Service: ? Author [...] to HTN (SBP 199/99 at presentation to [facility]) that caused angle closure and elevated IOP [...] Resident, PGY-[address] Phelan [facility] 07-12-2024 History of Present illness Narrative Interval [...] choroidals (not yet appositional) - Evaluated at [facility] 07/12/24 with intense nausea and multiple episodes [...] to HTN (SBP 199/99 at presentation to [facility]) that caused angle closure and elevated IOP [...] Phelan documented in this encounter [facility] 07-12-2024 Note HNO ID: [id number] Author: FELICIA LEVY MD Service: General Internal [...] of vision now s/p laser iridotomy at [facility] then trasnferred to [facility] for further management. S/p multiple peripheral iridotomies [...] possible dispo to SNF or home with [facility] (challenging given multiple daily eye drops and medications) - Rest per excellent note by resident Signature: Felicia Levy MD Date: 07/12/2024 Time: 1:27 PM Internal Medicine - Dae Chaudhry Progress Note Patient Name: Mel Castillo [address] Admission Date: 07/07/2024 Length of Stay: [...] ORAL BID HYDROmorpho (more content not included)... [facility] 07-11-2024 Note HNO ID: [id number] Author: FELICIA LEVY MD Service: General Internal [...] of vision now s/p laser iridotomy at [facility] then trasnferred to [facility] for further management. S/p multiple peripheral iridotomies [...] Note Patient Name: Mel Castillo [address] Admission Date: 07/07/2024 Length of Stay: [...] H PRN AL (more content not included)... [facility] 07-10-2024 Note HNO ID: [id number] Author: FELICIA LEVY MD Service: General Internal [...] of vision now s/p laser iridotomy at [facility] then trasnferred to [facility] for further management. S/p multiple peripheral iridotomies [...] Range in last (more content not included)... [facility] 07-09-2024 Note HNO ID: [id number] Author: TRACEY NANCE RN Service: Care Management [...] Relation: Other Admission Status: Inpatient Insurance Provider[facility] Discharge Planning requested by: Per Department Practice Potential Transition Plans Home Care Advance Directives Current Advance Directive: Health Care Power of Lead Assembler In Chart: Yes Up To Date and Valid: Yes Current Living Arrangements and Support Lives with: Alone Type of Residence: Mobile Home Support: Friends/neighbors, Family members How do you manage to accomplish the following: Independent: Ambulation;Bathe/Shower;Dress;Angélica g to the bathroom Needs Assistance: Meals/Meal Prep;Medication Management;Transportation to appointments/community Current Services/Equipment Discharge Planning Patient Goal(s): Increase strength [place] of Choice Explained: [place] of Choice Given: Yes Level of Care Discussed: Home Care Are you interested in bedside delivery of your medications? Yes Discharge Planning Participant(s): Caregiver;Family Patient/Family Comments: Fidel Hdez (Other) Caregiver Assessment: Caregiver is ready, willing and able to meet the patient's needs as recommended by the inter-professional team: (friends) Transport at Discharge: Transportation Arrangements: Car Destination: [address] [facility] [address] [place] [address] Needs Prior to Discharge: Post-Acute Discharge Plan: Anticipate DC home with [facility] 24-48 hours. HC referrals placed . Await OT evaluation. Patient lives alone in trailer , There are 4 steps to entrance, Using rolator prior to admission. Patient independent with ADL and assist with iADL prior to admission.Patient receives meals on wheels. Family transport to appointments and can provide purchasing department clerk assist. Family transport home. This CM spoke [...] DATE: July 09, 2024 TIME: 4:07 PM [facility] 07-09-2024 Note HNO ID: [id number] Author: NADIA VIDAL ? Service: Pharmacy Author Type: Practical Nursing Instructor Type: Plan of Care Filed: 07/09/2024 12:31 Note Text: Insurance investigation completed Patient has active prescription insurance: Yes - Patient's insurance is in-network with [facility] Insurance loaded into [place]: Yes Test claim was completed to verify insurance is active: Successful Any questions, please reach out to your medication manager access. [facility] 07-09-2024 Note HNO ID: [id number] Author: GISSELL POPE RPh Service: Pharmacy Author Type: Pharmacist Type: Plan of Care Filed: 07/09/2024 12:32 Note Text: PHARMACY MEDICATION REVIEW Patient Name: Mel Castillo : 1940 The following medications were updated within the LEARNING CENTER INSTRUCTOR medication list: Medications ADDED to LEARNING CENTER INSTRUCTOR medication list Furosemide 40 mg prn swelling Medications CHANGED on LEARNING CENTER INSTRUCTOR medication list Lisinopril 10 mg changed to 40 mg Increased from 5 mg daily to 40 mg daily on last hospital discharge Medications REMOVED from LEARNING CENTER INSTRUCTOR medication list Albuterol HFA PRN Lidocaine [...] Yes Completed by: Gissell Pope RPh All LEARNING CENTER INSTRUCTOR medications addressed by LIP Patient interested in Bedside Delivery Services or using OP Pharmacy at discharge? Yes. Discharge Pharmacy Updated Preferred outpatient pharmacy: [id number] [place] [address] [address] [facility] [phone] [facility] Allergies: Percocet [Oxycodone* Itching [...] Inject 0.7 mL subcutaneously every 12 hours. aktecaofhqo-akcnlijuo-xelmsibb (TRELEGY ELLIPTA) 100-62.5-25 mcg inhalation powder 07/06/2024 [...] Drop (MYDRIACYL) None recorded 1 Gissell Pope [facility] 07/09/2024 [facility] 07-09-2024 Note HNO ID: [id number] Author: OTILIO GERBER MD Service: ? Author [...] Follow up with Dr. Lopez Monday 07/16 [facility] eye clinic -Can continue anticoagulation [...] NLP vision Otilio Gerber MD Ophthalmology Resident [facility] Patient seen and discussed with Dr. Phelan [facility] 07-09-2024 History of Present illness Narrative OPHTHALMOLOGY [...] Follow up with Dr. Lopez Monday 07/16 [facility] eye clinic -Can continue anticoagulation [...] NLP vision Otilio Gerber MD Ophthalmology Resident [facility] Patient seen and discussed with Dr. Phelan documented in this encounter [facility] 07-09-2024 Note HNO ID: [id number] Author: FELICIA LEVY MD Service: General Internal [...] of vision now s/p laser iridotomy at [facility] then trasnferred to [facility] for further management. S/p multiple peripheral iridotomies [...] (ml) -2 350 (more content not included)... [facility] 07-08-2024 Note HNO ID: [id number] Author: FELICIA LEVY MD Service: Hospital Medicine [...] of vision now s/p laser iridotomy at [facility] then trasnferred to [facility] for further management. Plan: - Ophthalmology consult [...] Note Patient Name: Mel Castillo [address] Admission Date: 07/07/2024 Length of Stay: [...] 07/07/24 1853 12/ (more content not included)... [facility] 07-07-2024 Note HNO ID: [id number] Author: JARED GILMORE MD Service: ? Author [...] components. Jared Gilmore MD Vitreoretinal Surgery Fellow [facility] 07-07-2024 History of Present illness Narrative New [...] Gilmore documented in this encounter [facility] 07-07-2024 Note [facility] 07-07-2024 Hospital course Narrative Discharge Summary Hospitalist Discharge Summary Mel oPp : 1940 Admit date: 07/05/2024 Discharge date: [...] Stroke ([facility]) Procedures: multiple peripheral iridotomies Hospital Course: [...] Ellipta 100-62.5-25 MCG/ACT aerosol powder Generic drug: Osdtvwajbvx-Eetvqsywf-Sdfzwl STOP taking these medications albuterol 108 (90 [...] ophthalmic solution Recommended Follow-up: Tre Lombardi MD [address] [place] [address] [address] [facility] [address] Call in 2 month(s) Need follow up in December 2024 for aneurysm surveillence Complexity of Follow up: [] Moderate Complexity: follow up within 7-14 calendar days (30123) [x] Severe Complexity: follow up within 7 calendar days (05837) - after DC from [facility] Follow up [...] Henderson DO Division of Hospitalist Medicine [facility] 07/07/2024, 11:08 AM documented in this encounter [facility] 07-07-2024 Nurse Note Report called to [facility]. [facility] 07-07-2024 Nurse Note Report called to [facility]. This RN called Protective Services to try and locate pts lost glasses from 07/05/2024. Glasses that match the description are in lost and found. Will attempt to see if glasses are a match. documented in this encounter [facility] 07-07-2024 Note Formatting of this n [...] Length of Stay (Days): 0 GMLOS: 2.3 [facility] 07-07-2024 Note Formatting of this n [...] Length of Stay (Days): 0 GMLOS: 2.3 [facility] 07-07-2024 Miscellaneous Notes Care Management Progress [...] in mobile home. Consults in progress. Need [facility] to follow - does have pcp [...] is working on this . With staff. [facility] she is agreeable to it if [...] - DO NOT do CPR, intubation] [_] [DNR-JUNIOR WEB DESIGNER - Comfort care only] [_] DNR form [...] patient and/or family/surrogate. Silvio Peres MD [facility] 07/05/2024, 1:18 PM documented in this encounter [facility] 07-07-2024 History of Present illness Narrative Nutrition rescreen completed. Chart reviewed. Patient to be monitored and followed by the diet infrastructure technician. Images from the original note were not included. PHYSICAL THERAPY [facility] Initial Evaluation Name/MRN: Mel Pop ([id number]) Evaluation Date: 07/06/2024 Date of : 1940 Admission Date: 07/05/2024 4:21 AM Age: 83 y.o. 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 Goals and/or treatment plan was established in collaboration with patient/family/other representatives. Hospitalist Progress Note 07/06/2024 Subjective: Admit Date: 07/05/2024 PCP: Jared Evans MD Room#: W3-324/[facility] A BRIEF HOSPITAL COURSE: Per admitting hospitalist's [...] [facility]) LABS: CBC: Recent Labs 07/05/24 0435 [...] of Hospitalist Medicine Acute [facility] documented in this encounter [facility] 07-06-2024 Nurse Note This RN called Protective Services to try and locate pts lost glasses from 07/05/2024. Glasses that match the description are in lost and found. Will attempt to see if glasses are a match. [facility] 07-06-2024 Telephone encounter Note TELEPHONE ENCOUNTER 07/06/2024 Patient with recent stroke and admitted to [facility] where she was noted to have elevated IOP with retinal detachment of the right eye by consult meat boner. She has a history of RD in [...] Ryan Elizondo MD Ophthalmology Resident [facility] Work Phone: 07-06-2024 Miscellaneous Notes TELEPHONE ENCOUNTER 07/06/2024 Patient with recent stroke and admitted to [facility] where she was noted to have elevated IOP with retinal detachment of the right eye by consult meat boner. She has a history of RD in [...] Resident documented in this encounter [facility] 07-06-2024 Note Formatting of this n [...] is working on this . With staff. [facility] she is agreeable to it if goes home . [employer] 07-06-2024 Note Formatting of this n ote might be different from the original. Complicated discharge , live alone, poor vision - PT/OT now ordered- live in mobile home. Consults in progress. Need [facility] to follow - does have pcp [...] is working on this . With staff. [facility] she is agreeable to it if goes home . [employer] 07-06-2024 Consult note Formatting of th is [...] referral to a retinal subspecialist at either [facility] or [facility] for repair of retinal detachment right eye (OD). Continue ophthalmic pressure lowering ophthalmic meds right eye (OD) until seen by retinal subspecialist. [employer] Work Phone: 07-06-2024 Consult note Formatting of [...] referral to a retinal subspecialist at either [facility] or [facility] for repair of retinal detachment right [...] days. Associated Order(s): Inpatient consult to Endovascular Neurology--[facility] Inpatient consult to Endovascular Neurology--[facility] Consult performed by: Helga Naik APRN - MANDREL MAKER Consult ordered by: Wm Nunes DO Reason [...] has no past medical history of Cancer ([facility]) ([facility]), Cerebral artery occlusion with cerebral infarction ([facility]), CHF (congestive heart failure) ([facility]), Diabetes mellitus ([facility]), Hemodialysis patient ([facility]) ([facility] [...] Name: Mel Pop Patient : 1940 Acct: [id number] Date of Admission: 07/05/2024 Room/Bed: 60/60 PCP: [...] Historical Provider, ergocalciferol (Vitamin D2) 1.25 MG (04056 UT) capsule Take 1.25 mg by mouth [...] 5 MG tablet Take as directed by [facility] (90 tablets = 90 day [...] , Rfl: ergocalciferol (Vitamin D2) 1.25 MG (12337 UT) capsule, Take 1.25 mg by mouth [...] 5 MG tablet, Take as directed by [facility] (90 tablets = 90 day [...] this patient's care. documented in this encounter [facility] 07-05-2024 Consult note Formatting of th [...] drops are started. Will continue to follow. [facility] 07-05-[address] Carlson at bedside. [facility] 07-05-[address] Carlson [...] to Maritza FRAGA Emergency Department Encounter Location: [facility] Patient: Mel Pop : 1940 Date of evaluation: 07/05/2024 ED Provider: Jhonatan Hernandez MD Time received sign-out: 0700 Mel Pop was checked out to me by Dr. Nunes. Please see his/her initial documentation for details of the patient's initial ED presentation, physical exam and completed studies. In brief, Mle Pop is a 83 y.o. adult that [...] 423 ms QTC Interval 418 ms P Sum[place] 0 degrees QRS [place] 37 degrees T Wave [place] 29 degrees NV Interval 0 ms Troponin, High Sensitivity, Serial, [...] EST. Report Dictated on Electronically Signed By: Ciirlo Ray DR Electronically Signed Date/Time: 07/05/2024 5:03 [...] IV. I discussed with Dr. Peres from [facility] hospitalist service who accepted the admit. Medications [...] Given 07/05/24 0517) I am not the utility tender carding of record. Dr. Nunes is the utility tender carding of record. Final Impression 1. Vision loss [...] MD 07/05/24 1322 documented in this encounter [facility] 07-05-2024 Note Formatting of this n [...] - DO NOT do CPR, intubation] [_] [DNR-JUNIOR WEB DESIGNER - Comfort care only] [_] DNR form [...] patient and/or family/surrogate. Silvio Peres MD [facility] 07/05/2024, 1:18 PM [facility] 07-05-2024 Note Formatting of this n [...] - DO NOT do CPR, intubation] [_] [DNR-JUNIOR WEB DESIGNER - Comfort care only] [_] DNR form [was/was not] signed Summary of discussion: The patient health care POA/ surrogate is the following: Fidle STAPLETON (Bacel) I answered all the patient/family [...] and/or family/surrogate. 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 History Obtained From: patient and patient's obihqnvw-rc-rje HISTORY OF PRESENT ILLNESS: Mel is a [...] Needs: No Transportation Needs (07/02/2024) Received from [facility] Transportation Source Has lack of transportation kept you from medical appointments or from getting medications?: No Has lack of transportation kept you from meetings, work, or from getting things needed for daily living?: No Physical Activity: Inactive (04/04/2024) Exercise Vital Sign Days of Exercise per Week: 0 days Minutes of Exercise per Session: 0 min Stress: No Stress Concern Present (06/19/2024) Received from [facility] ([facility] - Occupational Stress Questionnaire Feeling of Stress : Not at all Social Connections: Moderately Isolated (06/20/2024) Received from [facility] Social Connection and Isolation Panel [NHANES] Frequency of Communication with Friends and Family: More than three times a week Frequency of Social Gatherings with Friends and Family: Once a week Attends Sikh Services: More than 4 times per year Active Member of Clubs or Organizations: No Attends Club or Organization Meetings: Never Marital Status: Intimate Partner Violence: Not At Risk (06/19/2024) Received from [facility] Medical Domestic Abuse Assessment Do [...] Housing Stability: Low Risk (06/20/2024) Received from [facility] Housing Stability Vital Sign [...] the evening. ergocalciferol (Vitamin D2) 1.25 MG (20009 UT) capsule Take 1.25 mg by mouth [...] 5 MG tablet Take as directed by [facility] Anticoagulation Clinic (90 tablets = 90 day [...] 07/05/2024 [facility] 1940 [id number] Exam Date/Time: 07/05/2024 11:45 Procedure: MR BRAIN [...] 07/05/2024 Patient Name: MEL POP : 1940 [facility]#: [id number] Exam Date/Time: 07/05/2024 04:36 Procedure: CT HEAD [...] 07/05/2024 Patient Name: MEL POP : 1940 [facility]#: [id number] Exam Date/Time: 07/05/2024 04:36 Procedure: CT HEAD [...] 07/05/2024 Patient Name: MEL POP : 1940 [id number] Exam Date/Time: 07/05/2024 04:36 Procedure: CT PERFUSION [...] Date: 07/05/2024 Performed by: [facility], [address] [place] [address] CLIA ID: [id number] Assessment / Plan Discussed management with the [...] Hospitalist Medicine [facility] [employer] Dictated using NearbyNow Speaking Medical Version 2.4 Proof read however unrecognized voice recognition errors may have occurred [employer] Work Phone: 07-05-2024 Note [employer] [facility] 07-05-2024 History and physical note Attending History and Physical Admit Date: 07/05/2024 PCP: Jared Evans MD CHIEF COMPLAINT: Loss of vision right eye, headache/eye pain, nausea, eye swelling Reason for Admission: 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 History Obtained From: patient and patient's [id number] HISTORY OF PRESENT ILLNESS: Mel is a [...] Resource Strain: Low Risk (06/20/2024) Received from [facility] Overall Financial Resource Strain (CARDIA) Difficulty of Paying Living Expenses: Not very hard Food Insecurity: No Food Insecurity (06/20/2024) Received from [facility] Medical Hunger Vital Sign Worried About Running Out of Food in the Last Year: Never true Ran Out of Food in the Last Year: Never true Transportation Needs: No Transportation Needs (07/02/2024) Received from [facility] SDTX Transportation Source Has lack of transportation kept you from medical appointments or from getting medications?: No Has lack of transportation kept you from meetings, work, or from getting things needed for daily living?: No Physical Activity: Inactive (04/04/2024) Exercise Vital Sign Days of Exercise per Week: 0 days Minutes of Exercise per Session: 0 min Stress: No Stress Concern Present (06/19/2024) Received from [facility] - Occupational Stress Questionnaire Feeling of Stress : Not at all Social Connections: Moderately Isolated (06/20/2024) Received from [facility] Social Connection and Isolation Panel [NHANES] Frequency of Communication with Friends and Family: More than three times a week Frequency of Social Gatherings with Friends and Family: Once a week Attends Sikh Services: More than 4 times per year Active Member of Clubs or Organizations: No Attends Club or Organization Meetings: Never Marital Status: Intimate Partner Violence: Not At Risk (06/19/2024) Received from [facility] Domestic Abuse Assessment Do [...] the evening. ergocalciferol (Vitamin D2) 1.25 MG (68335 UT) capsule Take 1.25 mg by mouth [...] 5 MG tablet Take as directed by [facility] Anticoagulation [facility] (90 tablets = 90 day [...] 07/05/2024 [facility] Name: MEL POP : 1940 [id number] Exam Date/Time: 07/05/2024 04:36 Procedure: CT HEAD [...] 07/05/2024 Patient Name: MEL POP : 1940 [facility]#: [id number] Exam Date/Time: 07/05/2024 04:36 Procedure: CT PERFUSION [...] Date: 07/05/2024 Performed by: [facility], [address] [place] [address] CLIA ID: [id number] Assessment / Plan Discussed management with the [...] Hospitalist Medicine [employer] [facility] [employer] Dictated using Indigeo Virtus Version 2.4 Proof read however unrecognized voice recognition errors may have occurred documented in this encounter [facility] 07-05-2024 Emergency department Note Provider notified of patient request for pain meds. [facility] 07-05-2024 Consult note Associated Order (s): IP [...] drops to be discontinued after 4 days. [facility] 07-05-2024 Consult note Associated Order (s): Inpatient consult to Endovascular Neurology--[facility] Inpatient consult to Endovascular Neurology--[facility] Consult performed by: Helga Naik APRN - [facility] Consult ordered by: Wm Nunes DO [...] no past medical history of Cancer (CMS/HCC) ([facility]), Cerebral artery occlusion with cerebral infarction ([facility]), CHF (congestive heart failure) ([facility]), Diabetes mellitus ([facility]), Hemodialysis patient ([facility]) ([facility] [...] ., . Personal review of: Imaging,Labs,Old Records},.},. [employer] Phone: 07-05-[address] Carlson at bedside [facility] 07-05-2024 Emergency department Note Patient is returning back to room 32 at this time with Jose, Medic. [facility] 07-05-2024 Emergency department Note Pt currently at eye clinic with RADHA Hinkle for emergent eye laser procedure. [facility] 07-05-2024 Note Pt currently at eye clinic with RADHA Hinkle for emergent eye laser procedure. [facility] 07-05-2024 Emergency department Note Pt emergently going to eye clinic. Pt being transported in wheelchair with trauma float RADHA Hinkle and Maritza FRAGA Pt being transported on zoll monitor and acls kit. [facility] 07-05-2024 Emergency department Note Ophthalmology at bedside [facility] 07-05-2024 Emergency department Note Report to Maritza FRAGA [facility] 07-05-2024 Consult note Associated Order (s): IP CONSULT TO STROKE TEAM STROKE TEAM NOTE Patient Name: Mel Pop Patient : 1940 Acct: [id number] Date of Admission: 07/05/2024 Room/Bed: 60/60 PCP: [...] Historical Provider, ergocalciferol (Vitamin D2) 1.25 MG (65678 UT) capsule Take 1.25 mg by mouth [...] 5 MG tablet Take as directed by [facility] (90 tablets = 90 day [...] , Rfl: ergocalciferol (Vitamin D2) 1.25 MG (16350 UT) capsule, Take 1.25 mg by mouth [...] 5 MG tablet, Take as directed by [facility] Anticoagulation [facility] (90 tablets = 90 day [...] RESULT COMMUNICATION: Critical findings discussed with Dr. Shaabzz at 07/05/2024 4:46 AM EST. Report Dictated on Workstation: [email or web address] Electronically Signed By: Cirilo Ray DR Electronically [...] 4:46 AM EST. Report Dictated on Workstation: [email or web address] Electronically Signed By: Cirilo Ray DR Electronically [...] to be involved in this patient's care. [facility] Phone: 07-05-2024 Physician Emergency department Note Emergency Department Encounter Location: [facility] Patient: Mel Pop : 1940 [...] 423 ms QTC Interval 418 ms P [place] 0 degrees QRS [place] 37 degrees T Wave [place] 29 degrees NV Interval 0 ms Troponin, High Sensitivity, Serial, [...] IV. I discussed with Dr. Peres from [facility] hospitalist service who accepted the admit. Medications [...] Given 07/05/24 0517) I am not the utility tender carding of record. Dr. Nunes is the utility tender carding of record. Final Impression 1. Vision loss of right eye 2. Acute intractable headache, unspecified headache type DISPOSITION Observation 07/05/2024 01:21:52 PM (Please note that portions of this note may have been completed with a voice recognition program. Efforts were made to edit the dictations but occasionally words are mis-transcribed.) Jhonatan Hernandez MD [facility] Jhonatan Hernandez MD 07/05/24 1322 [facility] 06-19-2024 Note HNO ID: [id number] Author: JOSE GONZALEZ [facility] Service: Pharmacy Author Type: Pharmacist Type: [...] with neuroendovascular for ICA aneurysm Jose Gonzalez [facility] Pager: Nora/Hailey cervantes 06/19/2024 1:31 PM [...] ELLIPTA 100-62.5-25 mcg inhalation powder Generic drug: pmuwtuheeub-ipsjpdsij-waioiwvp VITAMIN C 500 mg tablet Generic drug: [...] [facility] 06-19-2024 Note HNO ID: [id number] Author: ROSLYN ROSE RN Service: Care Management Author Type: Registered Nurse Type: Care Mgt Progress Note Filed: 06/19/2024 13:11 Note Text: CARE MANAGEMENT DISCHARGE NOTE SERVICE DATE: June 19, 2024 SERVICE TIME: 1:10 PM Admission Date: 06/10/2024 LOS: 8 days Discharge Arrangement Discharge Arrangement: Acute Rehabilitation Facility Services Arranged Provider Name: [facility] Caregiver Assessment Caregiver is ready, willing and able to meet the patient's needs as recommended by the inter-professional team: Yes Name of Caregiver: Taylor Muir Transportation Arrangements Transportation Arrangements: Ambulance Transportation Agency and Phone #:: [employer] [facility] ) [phone] / [phone] Date of Trip: 06/19/24 Time of Trip: 1800 Type of Service: BLS Non-emergency Technology Specialist Location: [facility] Destination: [facility] Financial Care Management Responsibility: None Handoff Communication: Handoff to: Specialty Arboriculturist Specialty Arboriculturist [facility] Additional Information: Patient has insurance precert and is discharging to [facility] today via [facility] at 6:00 PM. Spoke with patient at bedside and son José Miguel via phone who are aware and agreeable. Transfer envelope with chart. Care team aware via [employer] chat. Discharge Information Row Name ED to Hosp-Admission (Current) from 06/10/2024 in [place] [address] NEURO/CARD Rehab Facility Agency [facility] SIGNATURE: Roslyn Rose RN PATIENT NAME: Mel Castillo DATE: June 19, 2024 TIME: 1:10 PM CONTACT #: [phone] [facility] 06-19-2024 Note HNO ID: [id number] Author: DON EDWARDS DO Service: Hospital Medicine Author Type: Physician Type: Progress Notes Filed: 06/19/2024 12:53 Note Text: DEPARTMENT OF HOSPITAL MEDICINE PROGRESS NOTE SERVICE DATE: 06/19/2024 SERVICE TIME: 10:10 AM Hospital Medicine/Primary Attending: Don Edwards DO NIGHT AND WEEKEND COVERAGE: JENNIE COVERAGE: From 7am - 7pm, please call [phone] After 7pm, please call cross cover pager #[phone] Subjective INTERVAL HPI: Pt seen and examined. [...] 22 Gauge -- days Peripheral 06/12/24 0427 [facility] Short Right Forearm 20 Gauge 7 [...] -- 06/11/24 0730 vte current anticoag therapy ([place]) 06/11/24 0730 activity - mobilize patient ([place] VTE Prophylaxis: VTE prophylaxis appropriate Disposition: Acute Rehab Plan of care discussed with: Provider, RN, Patient SIGNATURE: Don Edwards DO PATIENT NAME: Mel Castillo DATE: June 19, 2024 TIME: 10:10 AM etx [id number] [facility] 06-18-2024 Note HNO ID: [id number] Author: ANABEL VEGA, Mabel Service: Care Management Author Type: ? Type: Care Mgt Progress Note Filed: 06/18/2024 17:18 Note Text: [facility] PRECERT NOTE [employer] MEDICARE PPO approved Inpatient Rehab Facility for [facility] - [facility]. Precert approved for dates: - 06/26/2024. For any additional questions regarding approvals, transport or care management needs, please contact the CM assigned to this patient in the Treatment Team. SIGNATURE: Anabel Vega DATE: June 18, 2024 TIME: 5:17 PM [facility] 06-18-2024 Note HNO ID: [id number] Author: MARK MINOR DO Service: Hospital Medicine Author Type: Physician Type: Progress Notes Filed: 06/18/2024 16:17 Note Text: DEPARTMENT OF HOSPITAL MEDICINE PROGRESS NOTE SERVICE DATE: 06/18/2024 SERVICE TIME: 4:06 PM Hospital Medicine/Primary Attending: Mark Minor DO NIGHT AND WEEKEND COVERAGE: After 7pm please page [phone] SUBJECTIVE: Patient seen examined at bedside. No [...] [facility] 06-18-2024 Note HNO ID: [id number] Author: ROSLYN ROSE RN Service: Care Management [...] update on pending precert. Received message from [facility] that insurance is requesting updated PT/OT evals and notified therapy. SIGNATURE: Roslyn Rose RN PATIENT NAME: Mel Castillo DATE: June 18, 2024 TIME: 9:01 AM PAGER/CONTACT #: [phone] [facility] 06-17-2024 Note HNO ID: [id number] Author: DON EDWARDS DO Service: Hospital Medicine [...] 22 Gauge -- days Peripheral 06/12/24 0427 [facility] Short Right Forearm 20 Gauge 5 [...] eliquis. She was seen by therapy and half-way facility was recommended. Acute embolic stroke with [...] -- 06/11/24 0730 vte current anticoag therapy ([place] 06/11/24 0730 activity - mobilize patient ([place] VTE Prophylaxis: VTE prophylaxis appropriate Disposition: Acute Rehab Plan of care discussed with: Provider, RN, Patient SIGNATURE: Don Edwards DO PATIENT NAME: Mel Castillo DATE: June 17, 2024 TIME: 11:15 AM etx [id number] [facility] 06-16-2024 Note HNO ID: [id number] Author: DON EDWARDS DO Service: Hospital Medicine Author Type: Physician Type: Progress Notes Filed: 06/16/2024 13:06 Note Text: DEPARTMENT OF HOSPITAL MEDICINE PROGRESS NOTE SERVICE DATE: 06/16/2024 SERVICE TIME: 11:00 AM Hospital Medicine/Primary Attending: Don Edwards DO NIGHT AND WEEKEND COVERAGE: ANDERSON COVERAGE: From 7am - 7pm, please call [...] 22 Gauge -- days Peripheral 06/12/24 0427 [facility] Short Right Forearm 20 Gauge 4 days Drain Duration Indwelling Urinary Catheter 06/11/24 1535 [facility] Ceballos 16 Fr 4 days Reviewed [...] -- 06/11/24 0730 vte current anticoag therapy ([place] 06/11/24 0730 activity - mobilize patient ([place] VTE Prophylaxis: VTE prophylaxis appropriate Disposition: Acute Rehab Plan of care discussed with: Provider, RN, Patient SIGNATURE: Don Edwards DO PATIENT NAME: Mel Castillo DATE: June 16, 2024 TIME: 11:00 AM etx [id number] [facility] 06-15-2024 Note HNO ID: [id number] Author: ERA TELLES MD Service: Hospital Medicine [...] [facility] 06-15-2024 Note HNO ID: [id number] Author: ISHAN October,N.MANDREL MAKER Service: Urology Author Type: Nurse Practitioner Type: Plan of Care Filed: 06/15/2024 12:16 Note Text: Urology Plan of Care Note RN reached out asking about a void trial today. Notes pt has bloody urine. Pt seen at bedside. Pt eating lunch. Vanessa urine in tubing at this time. Will place PRN irrigation orders if urine is bloody again. Page urology resident wallpaper consultant if urine is grade 4 or higher. Plan was to void trial prior to SD. Pt currently states she is unsure when [...] Ariana Mercer APRN 06/15/2024 12:11 PM Page wallpaper consultant resident with questions [facility] 06-15-2024 Note HNO ID: [id number] Author: ROSLYN ROSE RN Service: Care Management Author Type: Registered Nurse Type: Care Mgt Progress Note Filed: 06/15/2024 09:38 Note Text: CARE MANAGEMENT PROGRESS NOTE SERVICE DATE: 06/15/2024 SERVICE TIME: 9:36 AM LOS: 4 days Chart reviewed. [facility] Will need [facility]ert and cot transport. Will place transfer envelope with chart that has signed portable DNR form attached. CM to follow for transitional care planning. SIGNATURE: Roslyn Rose RN PATIENT NAME: Mel Castillo DATE: June 15, 2024 TIME: 9:36 AM PAGER/CONTACT #: [phone] [facility] 06-14-2024 Note HNO ID: [id number] Author: JENNIFER FERNANDEZ RN Service: Nursing Author Type: Registered Nurse Type: Nursing Progress Note Filed: 06/14/2024 17:35 Note Text: 1610: paged urology for voiding trial awaiting response [facility] 06-14-2024 Note HNO ID: [id number] Author: ERA TELLES MD Service: Hospital Medicine [...] [facility] 06-13-2024 Note HNO ID: [id number] Author: EDIE CASTAÑEDA MD Service: Hospital Medicine Author Type: Physician Type: Progress Notes Filed: 06/13/2024 14:18 Note Text: DEPARTMENT OF HOSPITAL MEDICINE Hospital Medicine/Primary Attending: Edie Castañeda MD NIGHT AND WEEKEND COVERAGE: After 7pm please page [phone] MEDICATIONS: Current Facility-Administered Medications Medication Dose Route [...] interatrial septum. Patient sees Dr. Padilla at [facility]. Cardiology saw patient in hospital, recommended [...] [facility] 06-13-2024 Note HNO ID: [id number] Author: CARLYLE GUZMÁN RN Service: Care Management Author Type: Registered Nurse Type: Care Mgt Progress Note Filed: 06/13/2024 13:00 Note Text: CARE MANAGEMENT PROGRESS NOTE SERVICE DATE: 06/13/2024 SERVICE TIME: 12:54 PM LOS: 2 days Needs Prior to Discharge: To Be Determined;Precertification;Discha rge [facility] and copy placed in patient's chart. Spoke with the patient and CHERYL Stokes about accepting facilities. [facility]. Precert started for [facility]. Cot transport is on standby. Will to continue to follow for transitional care planning. SIGNATURE: Carlyle Guzmán RN PATIENT NAME: Mel Castillo DATE: June 13, 2024 TIME: 12:54 PM PAGER/CONTACT #: [phone] [facility] 06-12-2024 Note HNO ID: [id number] Author: SHARONA MCDERMOTT MD Service: Hospital Medicine [...] interatrial septum. Patient sees Dr. Padilla at [facility]. Cardiology saw patient in hospital, recommended [...] [facility] 06-12-2024 Note HNO ID: [id number] Author: DEBORAH PEACE RN Service: Care Management Author Type: Registered Nurse Type: Care Mgt Progress Note Filed: 06/12/2024 16:10 Note Text: CARE MANAGEMENT PROGRESS NOTE SERVICE DATE: 06/12/2024 SERVICE TIME: 4:09 PM LOS: 1 day [place] Given: Yes Level of Care Discussed: Inpatient Rehab Facility Financial Disclosure Provided: Yes Provider List: Rehab Facility Provider list within the patient's requested geographic area shared with the patient/family: Yes within: 15 miles of zip code: [address] Quality and resource use metrics shared with the patient that are relevant to the patient's goals of care and treatment preferences:: Yes Spoke with pt about pt/ot recs for acute rehab, pt agreeable to list , [facility] be foc but pt would like to discuss acute rehab with her ; referral sent to [facility] SIGNATURE: Deborah Peace RN PATIENT NAME: Mel Castillo DATE: June 12, 2024 TIME: 4:09 PM PAGER/CONTACT #: [phone] [facility] 06-12-2024 Note HNO ID: [id number] Author: ANDREEA KING LSW Service: Care Management Author Type: Medical Dermatologist Type: Care Mgt Progress Note Filed: 06/12/2024 [...] 12, 2024 TIME: 3:20 PM PAGER/CONTACT #: [phone] [facility] 06-11-2024 Note HNO ID: [id number] Author: CARLYLE GUZMÁN RN Service: Care Management [...] Home Advance Directives Current Advance Directive: None Proof Tester Attempted to Assist with AD Completion: Yes [...] General wellness, Be able to go home [place] Explained: [place] Given: No Reason Not Given: [...] family who said she was mostly [employer] and does not endorse any skilled needs at this time. +PCP, +DME, +RX coverage, family to provide DC transportation. Will to continue to follow for transitional care planning. SIGNATURE: Carlyle Guzmán RN PATIENT NAME: Mel Castillo DATE: June 11, 2024 TIME: 3:41 PM CONTACT #: [phone] [facility] 06-11-2024 Note Spoke with Melany Evans's office and she stated that patient is scheduled in their office tomorrow, 06/12 for INR check. I faxed her out last progress note. I will inactivate patient from our service. [facility] 05-21-2024 History of Present illness Narrative INR reported on by Christin with [facility]. Christin can be reached at [phone] with questions. Images from the original note were not included. [facility] ([facility] Anticoagulation Clinic [address] [place] [address], [address], [place] [id number] Subjective HPI Mel (1940) had INR completed [...] PharmD, BCACP, CACP documented in this encounter [facility] 05-09-2024 History of Present illness Narrative Graciela from [facility] called in results. Images from the original note were not included. [facility] ([facility] Anticoagulation Clinic [address] [place] [address], [address], [place] [address] Megan Choi (1940) had INR completed by [...] Perez PharmD, BCPS documented in this encounter [facility] 05-01-2024 History of Present illness Narrative Tia- [facility]- [phone] Images from the original note were not included. [facility] ([facility] Anticoagulation Clinic [address] [place] [address], [address], [place] [phone] Subjective HPI Mel (1940) had INR completed [...] 5 mg daily Next INR Check: 05/08/2024 [facility] Patient educated on the following: dietary/lifestyle considerations and Vitamin K content and consistency Patient care coordination completed: N/A Patient given verbal instructions. Patient expressed understanding utilizing the teach back method. Time spent 10 Minutes Won Tipton RN staffed with Chalino Tolbert, BCACP, CACP documented in this encounter [facility] 04-27-2024 Telephone encounter Note Pt requested refill on warfarin 5mg. Sent to [facility]. Receipt confirmed by pharmacy. [facility] 04-27-2024 Miscellaneous Notes Pt requested refill on warfarin 5mg. Sent to [facility]. Receipt confirmed by pharmacy. documented in this encounter [facility] 04-25-2024 History of Present illness Narrative [...] any significant pain. She is following with [facility] clinic for Warfarin, switched from Eliquis. She [...] tablet (5mg) on 04/15 Follow up with [facility] pharmacy for further dosing 04/13/24 Jordin Roldan [...] min Stress: No Stress Concern Present (04/04/2024) [place] [employer] - Occupational Stress Questionnaire Feeling of Stress : Not at all Social Connections: Moderately Isolated (04/04/2024) Social Connection and Isolation Panel [NHANES] Frequency of Communication with Friends and Family: More than three times a week Frequency of Social Gatherings with Friends and Family: More than three times a week Attends [employer] Services: 1 to 4 times per year [...] thrombectomy -Recovering well -Recommend continuing warfarin per [facility] clinic -Continue to elevate as needed. -Discussed [...] (around 07/26/2024). . documented in this encounter [facility] 04-19-2024 History of Present illness Narrative Graciela with [facility] reports INR on vm Graciela can be reached at [phone] with any questions. Images from the original note were not included. [facility] ([facility]) Anticoagulation Clinic [address] [place] [address], [address], [place] [address] Subjective TYSON Rizoda (1940) had INR completed [...] Perez, PharmD, BCPS documented in this encounter [facility] 04-14-2024 History of Present illness Narrative Placed new order for POCT INR, [facility] had not received. documented in this encounter [facility] 04-14-2024 Miscellaneous Notes Addended by: PATTY DUGGAN on: 04/16/2024 07:01 AM Modules accepted: Orders Addended by: HARMONY GREY on: 04/16/2024 08:41 AM Modules accepted: Orders documented in this encounter [facility] 04-14-2024 Note Addended by: PATTY DUGGAN on: 04/16/2024 07:01 AM Modules accepted: Orders [facility] 04-14-2024 Note Addended by: HARMONY GREY on: 04/16/2024 08:41 AM Modules accepted: Orders [facility] 04-14-2024 Note Addended by: PATTY DUGGAN on: 04/16/2024 07:01 AM Modules accepted: Orders [facility] 04-14-2024 Note Addended by: HARMONY GREY on: 04/16/2024 08:41 AM Modules accepted: Orders [facility] 04-14-2024 Note Addended by: PATTY DUGGAN on: 04/16/2024 07:01 AM Modules accepted: [facility] 04-14-2024 Note Addended by: HARMONY GREY on: 04/16/2024 08:41 AM Modules accepted: [facility] 04-13-2024 Nurse Note AVS explained. Discharged patient on stable condition. [facility] 04-13-2024 Nurse Note AVS explained. Discharged patient on stable condition. Instructed patient on warfarin dosing, she will take 7.5mg tomorrow, and 5mg Tuesday, and then we will check INR with home care on Tuesday as instructed. NO changes to heparin infusion at this time. documented in this encounter [facility] 04-13-2024 Nurse Note Instructed patient on warfarin dosing, she will take 7.5mg tomorrow, and 5mg Tuesday, and then we will check INR with home care on Tuesday as instructed. [facility] 04-13-2024 Note Formatting of this n ote might be different from the original. Phone conversation with the patient at their request from the [facility] regarding her established home care. Patient was wondering what services were being provided and what expectations to have for [facility]. I explained her current ordered services and she stated she understood. Patient then asked if she could have meals delivered. I explained I would reach out to her executive secretary social welfare here at the hospital for further guidance on resources when she gets home. Secure chat sent to KEESHA Basilio regarding this. [facility] 04-13-2024 Note Formatting of this n ote might be different from the original. Phone conversation with the patient at their request from the [facility] regarding her established home care. Patient was wondering what services were being provided and what expectations to have for [facility]. I explained her current ordered services and she stated she understood. Patient then asked if she could have meals delivered. I explained I would reach out to her executive secretary social welfare here at the hospital for further guidance on resources when she gets home. Secure chat sent to KEESHA Basilio regarding this. [facility] 04-13-2024 Miscellaneous Notes Phone conversation with the patient at their request from the [facility] regarding her established home care. Patient was wondering what services were being provided and what expectations to have for [facility]. I explained her current ordered services and she stated she understood. Patient then asked if she could have meals delivered. I explained I would reach out to her executive secretary social welfare here at the hospital for further guidance on resources when she gets home. Secure chat sent to KEESHA Basilio regarding this. Images from the original note were not included. Care Management Progress Note INR 2.3 today. Hep drip continued, plan to DC to [facility] today. Plan to have PT seen patient today per her request. Patient is active with [facility]. Await treatment plan and clinical progress. field service manager will continue to follow for [...] vasc consult 04/06/2024 Bernie Cutler APRN - MANDREL MAKER 04/04/2024 4:04 AM 04/06/2024 Bernie Cutler APRN - MANDREL MAKER 04/03/2024 11:17 PM Length of Stay (Days): [...] discharge. Await treatment plan and clinical progress. field service manager will continue to follow for transitional care needs for discharge planning. Discharge Milestones and Delays Expected date/time: 04/13/2024 Expected discharge disposition: Home Health Services Discharge Milestones Place discharge order Complete med reconciliation Case mgmt discharge readiness Clinical Stability Diagnostic Workup Strip Polisher Recommendations Facility Choice Selection Imaging Results PT [...] to oral when appropriate. [facility]- will continue services at discharge. Await treatment plan and clinical progress. field service manager will continue to follow for [...] discharge. Await treatment plan and clinical progress. field service manager will continue to follow for transitional care needs for discharge planning. Discharge Milestones and Delays Expected date/time: 04/11/2024 Expected discharge disposition: Home or Self Care Discharge Milestones Place discharge order Complete med reconciliation Case mgmt discharge readiness Clinical Stability Diagnostic Workup Strip Polisher Recommendations Facility Choice Selection Imaging Results Patient [...] coumadin. Consult Hemology. Pt active with [facility]- will continue services at discharge. Await treatment plan and clinical progress. field service manager will continue to follow for transitional care needs for discharge planning. Discharge Milestones and Delays Expected date/time: 04/10/2024 Expected discharge disposition: Home or Self Care Discharge Milestones Place discharge order Complete med reconciliation Case mgmt discharge readiness Clinical Stability Diagnostic Workup Strip Polisher Recommendations Facility Choice Selection Imaging Results Patient [...] completion of Health Care Power of Lead Assembler. One copy placed in patient chart, one copy sent to medical records and two copies given to patient. Requested by patient, while at bedside this SW spoke to patient's son via patients phone to explain that HCPOA was being completed by patient. Patients son José Miguel Castillo ([phone]) agreed to be this patients agent on [...] technique was used to place a 5 Hungarian sheath. A Bentson wire was able to be advanced in the inferior vena cava without difficulty. The 5 Hungarian sheath was then upsized to a 16 Hungarian sheath and the penumbra flash suction thrombectomy device was prepared per hat steamer's instructions. The patient was also given 5000 units of heparin for systemic anticoagulation at this time. The Penumbra device was then inserted through the 16 Hungarian sheath and a suction thrombectomy was performed [...] device was removed as was the 16 Hungarian sheath and an 0 silk suture was [...] Blankenship MD Vascular Surgery Date: 04/06/2024 Location: [facility] OR Name: Mel Pop, : 1940, Diagnosis Pre-op Diagnosis * Right leg DVT (HCC) [I82.401] Post-op Diagnosis * Right leg DVT (HCC) [I82.401] Procedures RIGHT LOWER EXTREMITY VENOUS MECHANICAL THROMBECTOMY 30204 - NV PRQ TRANSLUMINAL MECHANICAL THROMBECTOMY VEIN Surgeons * Kristyn Blankenship - Primary Procedure Summary Anesthesia: General ASA: III Estimated Blood Loss: 300 mL Drains: * None in log * Staff: Manager Telemetry: Negrita Elizabeth RN; Amira Bruton RN Scrub Person: Linnette Shukla RN Findings: [...] vasc consult 04/06/2024 Bernie Cutler APRN - MANDREL MAKER 04/04/2024 4:04 AM 04/06/2024 Bernie Cutler APRN [...] Limits Permission given to speak with patient community health program representative/caregiver as indicated: Confirmation of Payer with patient/family: Yes Payer Name: [employer] [place]: No Confirmation of Primary Care Physician: Confirmed [...] Services Care Services Provider Name: [facility] Dialysis Type: NA Durable Medical Equipment: [...] home alone and indep. Pt active with [facility]- liaison following for continued services. Pt uses walker/cane at baseline. Pt has insurance, PCP and able to obtain meds. Pt's friends help with transportation. No needs antic at discharge. Virginia Rehman RN Start PACC Note Home Health Referral Educated patient on Home Care and services available. Patient offered choice of available HHC and agreeable to SN/PT services with [facility]. Care [...] is noted as yes - consider a DIRECTOR OF PULMONARY UNIT evaluation once the patient returns home. START PATIENT REGISTRATION INFORMATION Order Information Order Signing Physician: Robert Vigil MD Service Ordered RN ?: Yes Service Ordered PT ?: Yes Service Ordered OT ?: No Service Ordered ST ?: No Service Ordered DIRECTOR OF PULMONARY UNIT?:No Service Ordered TELEVISION RECEIVER ANALYZER?: No Following Physician: Jared Evans MD Following Physician Overseeing Physician: Jared Evans MD (Required for Residents only) Agreeable to Follow? Yes Date/Time of Call 04/04/24 11:36 AM, Spoke with: Patient is a DEB. Care Coordination Same Day SOC?: No Primary Care Physician: Jared Evans MD Primary Care Physician Primary Care Physician Address: [address] [place] [address] Visit Instructions: N/A Service Discharge Location Type: Home with Home Care Service Facility Name: N/A Service Floor Facility: N/A Service Room No: N/A Demographics Patient Last Name: Jose Alberto Patient First Name: Mel Language/Communication Barrier: none Service Address: [address] [place] [address] [facility] [address] Service City: [place] Service ST: [place] Service ZIP: [address] Service Other phone numbers: Telephone Information: Emergency [...] Caregiver Phone Number: na Caregiver Notes: N/A Exepron-CytRx List No END PATIENT REGISTRATION INFORMATION Pt [...] intervention. Discharge Date: pending Referral Source-PACC: (Hospital/Unit): [facility] / N4-461/N4-461 B End PACC Note The patient is Moderately Stable - Low risk of patient condition declining or worsening The patient's goals for the shift include safety The clinical goals for the shift include therapeutic aptt Patient is currently active with [facility]. The patients current certification period will on 05/18/24. The patient is currently receiving PT services through the agency. Sprinkler Repair Technician to continue to follow. ADVANCED CARE PLANNING Mel Pop : 1940 Primary Care Physician: Jared Evans MD The patient and/or family/surrogate voluntarily agreed to participate in ACP services. Patient s cognitive capacity: intact Code Status: [ ] [FULL CODE - Continue all advanced life support: CPR,intubation,invasive procedures] [X] [DNR-CCA - DO NOT do CPR, intubation] [_] [DNR-JUNIOR WEB DESIGNER - Comfort care only] [_] DNR form [...] patient and/or family/surrogate. Pratibha Avelar DO [facility] 04/04/2024, 5:40 AM The patient is Moderately Stable - Low risk of patient condition declining or worsening The patient's goals for the shift include met The clinical goals for the shift include met Over the shift, the patient did not make progress toward the following goals. Barriers to progression include . Recommendations to address these barriers include . documented in this encounter [facility] 04-13-2024 Note [facility] 04-13-2024 Hospital course Narrative Discharge Summary Mel Pop : 1940 ADMIT DATE: 04/03/2024 DISCHARGE DATE: 04/13/2024 PRIMARY CARE PHYSICIAN: Jared Evans VISIT STATUS: Admission CODE STATUS: DNR-CCA DISCHARGE DIAGNOSES: Principal Problem: Peripheral arterial disease (HCC) Bilateral lower extremity DVTs RLE thrombectomy HOSPITAL COURSE: 83-year-old woman with history of A-fib on Eliquis, tobacco use, hypertension, hyperlipidemia, asthma, hiatal hernia, GERD presented to [facility] on 04/03 with right leg pain, numbness, tingling causing difficulty ambulating. CTA of lower extremity showed severe atherosclerotic disease with bilateral superficial femoral artery occlusion and transferred to [facility]. She underwent venous thrombectomy with vascular surgery and was initiated on warfarin bridging with heparin. [facility] followed and managed bridging anticoagulation. Pt reported feeling improvement from day to day. Though she was concerned that being stuck in the hospital will debilitate her.Her INR was therapeutic on 04/13. [facility] recommended transition to Warfarin alternating 5mg/7.5mg dosing and close OP follow up for INR check. SIGNIFICANT DIAGNOSTIC STUDIES: BLE Duplex CONSULTANTS: Vascular surgery Pharmacy RECOMMENDED NEXT STEPS: Follow up with [facility] clinic and vascular DISCHARGE MEDICATIONS: Medication List [...] tablet (5mg) on 04/15 Follow up with [facility] pharmacy for further dosing CONTINUE taking these medications albuterol 108 (90 Base) MCG/ACT inhaler ascorbic acid 500 MG tablet Commonly known as: Vitamin C lisinopril 5 MG tablet pantoprazole 40 MG EC tablet Commonly known as: ProtoNix Trelegy Ellipta 100-62.5-25 MCG/ACT aerosol powder Generic drug: Zgqeabzsstp-Mtvlkgybn-Kqbolj STOP taking these medications Eliquis 5 MG tablet Generic drug: apixaban Where to Get Your Medications These medications were sent to [facility] [address] [place], [place] [id number] Hours: Tuesday to Tuesday 10 am to 6 pm oxyCODONE 5 MG immediate release tablet warfarin 5 MG tablet DIET: Adult diet Regular ACTIVITY: No restriction. COMPLEXITY OF FOLLOW UP: [x] Moderate Complexity: follow up within 7-14 calendar days (29634) [] Severe Complexity: follow up within 7 calendar days (94690) FOLLOW UP TESTING, PENDING RESULTS OR REFERRALS AT TRANSITIONAL CARE VISIT: [] Yes [x] No PENDING STUDIES: none DISPOSITION: Home with Home Health Care FACILITY/HOME CARE AGENCY NAME: [facility] Follow up with Kristyn Blankenship MD [address] [place] [id number] Schedule an appointment as soon as possible [...] 04/13/2024, 2:20 PM documented in this encounter [facility] 04-13-2024 History of Present illness Narrative Images from the original note were not included. PHYSICAL THERAPY [facility] Treatment Note Name/MRN: Mel Pop ([id number]) Date of : 1940 Age: 83 y.o. [...] 1045 Minutes 13 (Gait) Christin Gu PT [facility] Antico[facility] ([facility]) Inpatient Warfarin Consult HPI: Mel Pop is a 83 y.o. female admitted on 04/03/2024 for Peripheral arterial disease (HCC). Past Medical History: Diagnosis Date Asthma Essential hypertension 03/07/2020 GERD (gastroesophageal reflux disease) Hiatal hernia Pure hypercholesterolemia 03/07/2020 Patient is newly referred to the [facility] clinic for warfarin management. Pt was referred [...] follow-up upon discharge. Patient is agreeable to [facility] follow up. If discharged today, recommend sending home with 5mg tablets with instructions to take 5mg Tuesday (if not already received in hospital), 7.5mg Tuesday, 5mg Tuesday, and will recheck INR Tuesday via home care. 4. Provided warfarin education. Marybeth Rahman RPh, PharmD [facility] Consult Service is available daily [phone] via [employer] Secure [employer]icate[employer]. If no response, please page [phone]. Hospitalist Progress Note 04/13/2024 Subjective: Admit Date: 04/03/2024 PCP: Jared Evans MD Room#: N4-461/N4-461 B BRIEF HOSPITAL COURSE: 83-year-old woman with history of A-fib on Eliquis, tobacco use, hypertension, hyperlipidemia, asthma, hiatal hernia, GERD presented to [facility] on 04/03 with right leg pain, numbness, tingling causing difficulty ambulating. CTA of lower extremity showed severe atherosclerotic disease with bilateral superficial femoral artery occlusion and transferred to [facility]. She underwent venous thrombectomy with vascular surgery and was initiated on warfarin bridging with heparin. [facility] followed and managed bridging anticoagulation. Pt reported feeling improvement from day to day. Though she was concerned that being stuck in the hospital will debilitate her.Her INR was therapeutic on 04/13. [facility] recommended transition to Warfarin alternating 5mg/7.5mg dosing [...] person, place, and time. Medications: Scheduled PRN Lcsriuilnci-Ejpcthwda-Oydxjq, 1 puff, Inhalation, Daily influenza, 0.5 mL, [...] of Hospitalist Medicine [facility] Hospitalist Progress Note 04/12/2024 Subjective: Admit Date: 04/03/2024 PCP: Jared Evans MD Room#: N4461/N4-524 B BRIEF HOSPITAL COURSE: 83-year-old woman with history of A-fib on Eliquis, tobacco use, hypertension, hyperlipidemia, asthma, hiatal hernia, GERD presented to [facility] on 04/03 with right leg pain, numbness, tingling causing difficulty ambulating. CTA of lower extremity showed severe atherosclerotic disease with bilateral superficial femoral artery occlusion and transferred to [facility]. She underwent venous thrombectomy with vascular surgery [...] person, place, and time. Medications: Scheduled PRN Hdnyzscxxnk-Iyxakifvm-Dwnfin, 1 puff, Inhalation, Daily influenza, 0.5 mL, [...] Jordin Roldan MD Division of Hospitalist Medicine [facility] Anticoagulation Management [facility] ([facility]) Inpatient Warfarin Consult HPI: Mel Pop is a 83 y.o. female admitted on 04/03/2024 for Peripheral arterial disease (HCC). Past Medical History: Diagnosis Date Asthma Essential hypertension 03/07/2020 GERD (gastroesophageal reflux disease) Hiatal hernia Pure hypercholesterolemia 03/07/2020 Patient is newly referred to the [facility] clinic for warfarin management. Pt was referred [...] PharmD [facility] Consult Service is available daily [phone] via [employer] Secure Chat. If no response, please page [phone]. Images from the original note were not included. 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 Goals and/or treatment plan was established in collaboration with patient/family/other representatives. Hospitalist Progress Note 04/11/2024 Subjective: Admit Date: 04/03/2024 PCP: Jared Evans MD Room#: N4461/N4461 B BRIEF HOSPITAL COURSE: 83-year-old woman with history of A-fib on Eliquis, tobacco use, hypertension, hyperlipidemia, asthma, hiatal hernia, GERD presented to [facility] on 04/03 with right leg pain, numbness, tingling causing difficulty ambulating. CTA of lower extremity showed severe atherosclerotic disease with bilateral superficial femoral artery occlusion and transferred to [facility]. She underwent venous thrombectomy with vascular surgery [...] person, place, and time. Medications: Scheduled PRN Kbqjdduedkd-Rvtboeojf-Ojngrz, 1 puff, Inhalation, Daily influenza, 0.5 mL, [...] Jordin Roldan MD Division of Hospitalist Medicine [facility] Images from the original note were not included. PHYSICAL THERAPY [facility] Initial Evaluation Name/MRN: Mel Pop ([id number]) Evaluation Date: 04/11/2024 Date of : 1940 [...] 03/07/2020 Osteopenia of left femoral neck 03/07/2020 ocean transportation intermediary current use of anticoagulant therapy 03/07/2020 Seasonal [...] Raw Score (No Stairs) : 19 [facility] Score: Walked [...] of Care supervision is transferred to a [facility] Physical Therapist. Goals and/or treatment plan was established in collaboration with patient/family/other representatives. [facility] Antico[facility] ([facility]) Inpatient Warfarin Consult HPI: Mel Pop is a 83 y.o. female admitted on 04/03/2024 for Peripheral arterial disease (HCC). Past Medical History: Diagnosis Date Asthma Essential hypertension 03/07/2020 GERD (gastroesophageal reflux disease) Hiatal hernia Pure hypercholesterolemia 03/07/2020 Patient is newly referred to the [facility] clinic for warfarin management. Pt was referred [...] PharmD [facility] Consult Service is available daily [phone] via [employer] Secure SyndicateRoom. If no response, please page [phone]. Hospitalist Progress Note 04/10/2024 Subjective: Admit Date: 04/03/2024 PCP: Jared Evans MD Room#: N4-461/N4-461 B BRIEF HOSPITAL COURSE: 83-year-old woman with history of A-fib on Eliquis, tobacco use, hypertension, hyperlipidemia, asthma, hiatal hernia, GERD presented to [facility] on 04/03 with right leg pain, numbness, tingling causing difficulty ambulating. CTA of lower extremity showed severe atherosclerotic disease with bilateral superficial femoral artery occlusion and transferred to [facility]. She underwent venous thrombectomy with vascular surgery [...] Jordin Roldan MD Division of Hospitalist Medicine [facility] Nutrition update completed. Chart reviewed. Patient to be monitored and followed by the diet infrastructure technician. FADI Farrar [facility] Anticoagulation [facility] ([facility]) Inpatient Warfarin Consult HPI: Mel Pop is a 83 y.o. female admitted on 04/03/2024 for Peripheral arterial disease (HCC). Past Medical History: Diagnosis Date Asthma Essential hypertension 03/07/2020 GERD (gastroesophageal reflux disease) Hiatal hernia Pure hypercholesterolemia 03/07/2020 Patient is newly referred to the [facility] clinic for warfarin management. Pt was referred [...] PharmD [facility] Consult Service is available daily [phone] via [employer]. If no response, please page [phone]. Hospitalist Progress Note 04/09/2024 Assessment/Plan: Data: (CAT1) [...] asthma, hiatal hernia, GERD who presented to [facility] 04/03 with right leg pain, numbness, tingling causing difficulty ambulating. CTA of LE, showing severe LE atherosclerotic disease with bilateral superficial femoral artery occlusion, and was transferred to [facility] for admission. Interval History: Mild shortness of [...] Robert Vigil MD Division of Hospitalist Medicine [facility] ([facility]) Inpatient Warfarin Consult HPI: Mel F Pop is a 83 y.o. female admitted on 04/03/2024 for Peripheral arterial disease (HCC). Past Medical History: Diagnosis Date Asthma Essential hypertension 03/07/2020 GERD (gastroesophageal reflux disease) Hiatal hernia Pure hypercholesterolemia 03/07/2020 Patient is newly referred to the [facility] clinic for warfarin management. Pt was referred [...] Will determine if pt is agreeable to [facility] follow-up. 4. Will provide warfarin education. Marybeth Rahman RPh, PharmD [facility] Consult Service is available daily [phone] via [employer] Secure Chat. If no response, please page [phone]. Hospitalist Progress Note 04/08/2024 Assessment/Plan: Data: (CAT1) [...] asthma, hiatal hernia, GERD who presented to [facility] 04/03 with right leg pain, numbness, tingling causing difficulty ambulating. CTA of LE, showing severe LE atherosclerotic disease with bilateral superficial femoral artery occlusion, and was transferred to [facility] for admission. Interval History: Pain continues to [...] Robert Vigil MD Division of Hospitalist Medicine [facility] Anticoagulation Management Service ([facility]) Inpatient Warfarin Consult HPI: Mel Pop is a 83 y.o. female admitted on 04/03/2024 for Peripheral arterial disease (HCC). Past Medical History: Diagnosis Date Asthma Essential hypertension 03/07/2020 GERD (gastroesophageal reflux disease) Hiatal hernia Pure hypercholesterolemia 03/07/2020 Patient is newly referred to the [facility] clinic for warfarin management. Pt was referred [...] PharmD [facility] Consult Service is available daily [phone] via [employer] Secure Chat. If no response, please page [phone]. Hospitalist Progress Note 04/07/2024 Assessment/Plan: Data: (CAT1) [...] Anticipate DC pending clinical improvement and pain., Strip Polisher recommendations, Coumadin bridge with heparin Total time [...] asthma, hiatal hernia, GERD who presented to [facility] 04/03 with right leg pain, numbness, tingling causing difficulty ambulating. CTA of LE, showing severe LE atherosclerotic disease with bilateral superficial femoral artery occlusion, and was transferred to [facility] for admission. Interval History: Pain improved today, [...] Robert Vigil MD Division of Hospitalist Medicine [facility] Anticoagulation Management Service ([facility]) Inpatient Warfarin Consult HPI: Mel Pop is a 83 y.o. female admitted on 04/03/2024 for Peripheral arterial disease (HCC). Past Medical History: Diagnosis Date Asthma Essential hypertension 03/07/2020 GERD (gastroesophageal reflux disease) Hiatal hernia Pure hypercholesterolemia 03/07/2020 Patient is newly referred to the [facility] clinic for warfarin management. Pt was referred [...] PharmD [facility] Consult Service is available daily [phone] via [employer] Secure SyndicateRoom. If no response, please page [phone]. Department of General Surgery Daily Progress Note [...] George Sarah MD PGY5, General Surgery Pager #[phone] CDI Query Response: Acute thrombus within the [...] Anticipate DC pending clinical improvement and pain., Strip Polisher recommendations, Coumadin bridge with heparin Total time [...] asthma, hiatal hernia, GERD who presented to [facility] 04/03 with right leg pain, numbness, tingling causing difficulty ambulating. CTA of LE, showing severe LE atherosclerotic disease with bilateral superficial femoral artery occlusion, and was transferred to [facility] for admission. Interval History: Has significant pain [...] Robert Vigil MD Division of Hospitalist Medicine [facility] Department of General Surgery Daily Progress Note [...] questions have been answered to their satisfaction. [facility] Anticoagulation Management Service ([facility]) Inpatient Warfarin Consult HPI: Mel Pop is a 83 y.o. female admitted on 04/03/2024 for Peripheral arterial disease (HCC). Past Medical History: Diagnosis Date Asthma Essential hypertension 03/07/2020 GERD (gastroesophageal reflux disease) Hiatal hernia Pure hypercholesterolemia 03/07/2020 Patient is newly referred to the [facility] clinic for warfarin management. Pt was referred [...] PharmD [facility] Consult Service is available daily [phone] via [employer] Secure SyndicateRoom. If no response, please page [phone]. Hospitalist Progress Note 04/05/2024 Assessment/Plan: Data: (CAT1) [...] Discharge Disposition: Anticipate DC pending clinical improvement, infrastructure consultant recommendations Total time spent (which include [...] asthma, hiatal hernia, GERD who presented to [facility] 04/03 with right leg pain, numbness, tingling causing difficulty ambulating. CTA of LE, showing severe LE atherosclerotic disease with bilateral superficial femoral artery occlusion, and was transferred to [facility] for admission. Interval History: Had more RLE [...] Robert Vigil MD Division of Hospitalist Medicine [facility] Nutrition rescreen completed. Chart reviewed. Patient to be monitored and followed by the diet infrastructure technician. [facility] Anticoagulation Management Service ([facility]) Inpatient Warfarin Consult HPI: Mel Pop is a 83 y.o. female admitted on 04/03/2024 for Peripheral arterial disease (HCC). Past Medical History: Diagnosis Date Asthma Essential hypertension 03/07/2020 GERD (gastroesophageal reflux disease) Hiatal hernia Pure hypercholesterolemia 03/07/2020 Patient is newly referred to the [facility] clinic for warfarin management. Pt was referred [...] PharmD [facility] Consult Service is available daily [phone] via [employer] Secure Chat. If no response, please page [phone]. Department of General Surgery Daily Progress Note [...] Naik MD General Surgery PGY-4 Pager # [phone] Associated attestation - Kristyn Blankenship MD - [...] NPO at midnight for possible thrombectomy tomorrow. [facility] Anticoagulation Management Service ([facility]) Inpatient Warfarin Consult HPI: Mel Pop is a 83 y.o. female admitted on 04/03/2024 for Peripheral arterial disease (HCC). Past Medical History: Diagnosis Date Asthma Essential hypertension 03/07/2020 GERD (gastroesophageal reflux disease) Hiatal hernia Pure hypercholesterolemia 03/07/2020 Patient is newly referred to the [facility] clinic for warfarin management. Pt was referred [...] Will determine if pt is agreeable to [facility] follow-up 4. Will provide warfarin education. Thank you for this consult Marybeth Rahman RPh, PharmD [facility] Consult Service is available daily [phone] via [employer] Secure Chat. If no response, please page [phone]. Nonbillable encounter. Patient was seen by provider earlier today Patient is an 83-year-old female with history of A-fib on Eliquis, significant tobacco use, HTN, HLD, asthma, hiatal hernia, GERD who presented to [facility] 04/03 with right leg pain, numbness, tingling causing difficulty ambulating. CTA of LE, showing severe LE atherosclerotic disease with bilateral superficial femoral artery occlusion, and was transferred to [facility] for admission. Severe bilateral LE atherosclerotic disease [...] Eliquis -Smoking cessation documented in this encounter [facility] 04-13-2024 Note Formatting of this n ote is different from the original. Images from the original note were not included. Care Management Progress Note INR 2.3 today. Hep drip continued, plan to DC to [facility] today. Plan to have PT seen patient today per her request. Patient is active with [facility]. Await treatment plan and clinical progress. field service manager will continue to follow for [...] vasc consult 04/06/2024 [place] Cutler APRN - MANDREL MAKER 04/04/2024 4:04 AM 04/06/2024 [place] Cutler APRN - MANDREL MAKER 04/03/2024 11:17 PM Length of Stay (Days): 10 GMLOS: 4 [facility] 04-13-2024 Note Formatting of this n ote is different from the original. Images from the original note were not included. Care Management Progress Note INR 2.3 today. Hep drip continued, plan to DC to [facility] today. Plan to have PT seen patient today per her request. Patient is active with [facility]. Await treatment plan and clinical progress. field service manager will continue to follow for [...] vasc consult 04/06/2024 [place] Cutler APRN - MANDREL MAKER 04/04/2024 4:04 AM 04/06/2024 [place] Cutler APRN - MANDREL MAKER 04/03/2024 11:17 PM Length of Stay (Days): 10 GMLOS: 4 [facility] 04-13-2024 Plan of care note The patient [...] medications, and discharge instructions Outcome: Progressing [facility] 04-12-2024 Plan of care note Problem: Pain [...] of patient condition declining or worsening [facility] 04-12-2024 Note Formatting of this n ote is different from the original. Images from the original note were not included. Care Management Progress Note Patent currently still on Hep Drip, INR 1.9. Will convert to oral when appropriate. Pt active with [facility]- will continue services at discharge. Await treatment plan and clinical progress. field service manager will continue to follow for transitional care needs for discharge planning. Discharge Milestones and Delays Expected date/time: 04/13/2024 Expected discharge disposition: Home Health Services Discharge Milestones Place discharge order Complete med reconciliation Case mgmt discharge readiness Clinical Stability Diagnostic Workup Strip Polisher Recommendations Facility Choice Selection Imaging Results PT [...] lower US, vasc consult 04/06/2024 [place] Cutler, PROJECT PORTFOLIO ANALYST - MANDREL MAKER 04/04/2024 4:04 AM 04/06/2024 [place] Cutler PROJECT PORTFOLIO ANALYST - MANDREL MAKER 04/03/2024 11:17 PM Length of Stay (Days): 9 GMLOS: 4 [facility] 04-12-2024 Note Formatting of this n ote is different from the original. Images from the original note were not included. Care Management Progress Note Patent currently still on Hep Drip, INR 1.9. Will convert to oral when appropriate. Pt active with [facility]- will continue services at discharge. Await treatment plan and clinical progress. field service manager will continue to follow for transitional care needs for discharge planning. Discharge Milestones and Delays Expected date/time: 04/13/2024 Expected discharge disposition: Home Health Services Discharge Milestones Place discharge order Complete med reconciliation Case mgmt discharge readiness Clinical Stability Diagnostic Workup Strip Polisher Recommendations Facility Choice Selection Imaging Results PT [...] lower US, vasc consult 04/06/2024 [place] Cutler, PROJECT PORTFOLIO ANALYST - MANDREL MAKER 04/04/2024 4:04 AM 04/06/2024 [place] Cutler APRN - MANDREL MAKER 04/03/2024 11:17 PM Length of Stay (Days): 9 GMLOS: 4 T [facility] 04-12-2024 Plan of care note The [...] medications, and discharge instructions Outcome: Progressing T [facility] 04-11-2024 Note Formatting of this n ote is different from the original. Images from the original note were not included. Care Management Progress Note Patent currently still on Hep Drip, INR 1.9. Will convert to oral when appropriate. Pt active with [facility]- will continue services at discharge. Await treatment plan and clinical progress. field service manager will continue to follow for [...] vasc consult 04/06/2024 [place] Cutler APRN - MANDREL MAKER 04/04/2024 4:04 AM 04/06/2024 [place] Cutler APRN - MANDREL MAKER 04/03/2024 11:17 PM Length of Stay (Days): 8 GMLOS: 4 [facility] 04-11-2024 Note Formatting of this n ote is different from the original. Images from the original note were not included. Care Management Progress Note Patent currently still on Hep Drip, INR 1.9. Will convert to oral when appropriate. Pt active with [facility]- will continue services at discharge. Await treatment plan and clinical progress. field service manager will continue to follow for [...] vasc consult 04/06/2024 [place] Cutler APRN - MANDREL MAKER 04/04/2024 4:04 AM 04/06/2024 [place] Cutler APRN - MANDREL MAKER 04/03/2024 11:17 PM Length of Stay (Days): 8 GMLOS: 4 [facility] 04-11-2024 Plan of care note Problem: Pain [...] of patient condition declining or worsening [facility] 04-11-2024 Plan of care note The patient [...] or baseline comfort level Outcome: Progressing T [facility] 04-10-2024 Plan of care note Problem: [...] of patient condition declining or worsening [facility] 04-10-2024 Note Formatting of this n ote is different from the original. Images from the original note were not included. Care Management Progress Note Patient currently still on Heparin Drip, INR 1.6 today.Will convert to oral when appropriate. Pt active with [facility]- will continue services at discharge. Await treatment plan and clinical progress. field service manager will continue to follow for transitional care needs for discharge planning. Discharge Milestones and Delays Expected date/time: 04/11/2024 Expected discharge disposition: Home or Self Care Discharge Milestones Place discharge order Complete med reconciliation Case mgmt discharge readiness Clinical Stability Diagnostic Workup Strip Polisher Recommendations Facility Choice Selection Imaging Results Patient Education Complete Expected Discharge History Expected Date/Time Set By Reviewed At 04/11/2024 Cathi Avila RN 04/10/2024 8:41 AM hep gtt- transitioning to coumadin 04/10/2024 Virginia Rehman RN 04/09/2024 8:13 AM 04/08/2024 [place] Rehman RN 04/06/2024 8:13 AM hep gtt, poss thrombectomy 04/07/2024 [place] Rehman RN 04/05/2024 8:03 AM hep gtt, poss thrombectomy tomorrow 04/06/2024 [place] eRhman RN 04/04/2024 8:48 AM hep gtt, oliva lower US, vasc consult 04/06/2024 [place] Cutler APRN - MANDREL MAKER 04/04/2024 4:04 AM 04/06/2024 [place] Cutler APRN - MANDREL MAKER 04/03/2024 11:17 PM Length of Stay (Days): 7 GMLOS: 4 [facility] 04-10-2024 Note Formatting of this n ote is different from the original. Images from the original note were not included. Care Management Progress Note Patient currently still on Heparin Drip, INR 1.6 today.Will convert to oral when appropriate. Pt active with [facility]- will continue services at discharge. Await treatment plan and clinical progress. field service manager will continue to follow for transitional care needs for discharge planning. Discharge Milestones and Delays Expected date/time: 04/11/2024 Expected discharge disposition: Home or Self Care Discharge Milestones Place discharge order Complete med reconciliation Case mgmt discharge readiness Clinical Stability Diagnostic Workup Strip Polisher Recommendations Facility Choice Selection Imaging Results Patient [...] Length of Stay (Days): 7 GMLOS: 4 [facility] 04-09-2024 Note Formatting of this n ote is different from the original. Images from the original note were not included. Care Management Progress Note Remains on heparin gtt while transitioning to coumadin. Consult Hemology. Pt active with [facility]- will continue services at discharge. Await treatment plan and clinical progress. field service manager will continue to follow for transitional care needs for discharge planning. Discharge Milestones and Delays Expected date/time: 04/10/2024 Expected discharge disposition: Home or Self Care Discharge Milestones Place discharge order Complete med reconciliation Case mgmt discharge readiness Clinical Stability Diagnostic Workup Strip Polisher Recommendations Facility Choice Selection Imaging Results Patient [...] Length of Stay (Days): 6 GMLOS: 3.1 [facility] 04-09-2024 Note Formatting of this n ote is different from the original. Images from the original note were not included. Care Management Progress Note Remains on heparin gtt while transitioning to coumadin. Consult Hemology. Pt active with [facility]- will continue services at discharge. Await treatment plan and clinical progress. field service manager will continue to follow for transitional care needs for discharge planning. Discharge Milestones and Delays Expected date/time: 04/10/2024 Expected discharge disposition: Home or Self Care Discharge Milestones Place discharge order Complete med reconciliation Case mgmt discharge readiness Clinical Stability Diagnostic Workup Strip Polisher Recommendations Facility Choice Selection Imaging Results Patient [...] vasc consult 04/06/2024 [place] Cutler APRN - MANDREL MAKER 04/04/2024 4:04 AM 04/06/2024 [place] Cutler APRN - MANDREL MAKER 04/03/2024 11:17 PM Length of Stay (Days): 6 GMLOS: 3.1 [facility] 04-08-2024 Plan of care note Progressing T [facility] 04-07-2024 Plan of care note The [...] or baseline comfort level Outcome: Progressing . [facility] 04-07-2024 Hospital Discharge instructions Lolita Sarah MD [...] Rahman RPh - 04/13/2024 1:07 PM EDT [facility] will monitor your warfarin after you go home. [facility] Phone number: [phone]. Home care nurse will check your INR Monday 04/16 and [facility] will contact you with warfarin dosing instructions. 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 current use of anticoagulant therapy Seasonal allergies [...] 8 oz) Mental Status: {HECTOR Patient Mental Status:43327} IV Access: {HECTOR IV Access:07052} Nursing Mobility/ADLs: Walking {MAHESH ADL:28238::Independent} Transfer {MAHESH ADL:06632::Independent} Bathing {MAHESH ADL:30428::Independent} Dressing {MAHESH ADL:05965::Independent} Toileting {MAHESH ADL:85783::Independent} Feeding {MAHESH ADL:53320::Independent} Cvir Tech {MAHESH ADL:84802::Independent} Med Delivery {yes/no:27709} Wound Care Documentation and Therapy: Elimination: Continence: Bowel: {yes/no:22447} Bladder: {yes/no:04368} Urinary Catheter: {HECTOR Urinary Catheter:27076} Colostomy/Ileostomy/Ileal Conduit: {YES / NO:} Date of Last BM: Intake/Output Summary (Last 24 hours) at 04/04/2024 1135 Last data filed at 04/03/20242056 Gross per 24 hour Intake 500 ml Output -- Net 500 ml I/O last 3 completed shifts: In: 500 (6.9 mL/kg) [IV Piggyback:500] Out: - (0 mL/kg) Weight: 72.3 kg Safety Concerns: {HECTOR Safety Concerns:68489} Impairments/Disabilities: {HECTOR Impairments/Disabilities:65695} Nutrition Therapy: Current Nutrition Therapy: {HECTOR Diet List:87542} Routes of Feeding: {routes of feedin} Liquids: {liquid consistency:01239} Daily Fluid Restriction: {daily fluid restriction:39362} Last Modified Barium Swallow with Video (Video Swallowing Test): {done not done:53139} Treatments at the Time of Hospital Discharge: Respiratory Treatments: Oxygen Therapy: {Therapy; copd oxygen:35994} Ventilator: {HECTOR Ventilator:81364} Rehab Therapies: {GEN THERAPY DISCIPLINE SCAL:4622122} Weight Bearing Status/Restrictions: {POD WEIGHT BEARIN} Other Medical Equipment (for information only, NOT a DME order): {Assistive Devices DME:23249} Other Treatments: Patient's personal belongings (please select all that are sent with patient): {HECTOR Patient Belongings:16846} RN SIGNATURE: {E-signature:65985} CASE MANAGEMENT/SOCIAL WORK SECTION Inpatient Status Date: Discharging to Facility/ Agency Name: [facility] Address: [address] [place] [address] Dialysis Facility (if applicable) Name: Address: Dialysis Schedule: Phone: Fax: Charge Loader/Medical Dermatologist signature: {E-signature:87290} PHYSICIAN SECTION Name: Mel Pop Prognosis: {Rehab Prognosis:37822} Condition at Discharge: {Patient Condition:73175} Rehab Potential (if transferring to Rehab): {Rehab Prognosis:43515} Recommended Labs or Other Treatments After Discharge: The individual is being admitted to a nursing facility directly from an [facility] or a unit of a [facility] that is not operated by or licensed by [facility] under section 5119.14 or 5160-3-15.1 5 The individual requires the level of services provided by a nursing facility for the condition for which he or she was treated in the hospital and, Physician Certification: I certify the above information and transfer of Mel Pop is necessary for the continuing treatment of the diagnosis listed and that she requires {HECTOR Level of Care:89144} for {greater less than:29345} 30 days. Update Admission H&P: {HECTOR Changes in H&P:45575} PHYSICIAN SIGNATURE: {E-signature:79095} documented in this encounter [facility] 04-07-2024 Nurse Note NO changes to heparin infusion at this time. [facility] 04-06-2024 Note Formatting of this n ote is different from the original. Images from the original note were not included. Care Management Progress Note Pt s/p thrombectomy this am with vascular. Remains on heparin gtt while transitioning to coumadin. Pt active with [facility]- will continue services at discharge. [...] Length of Stay (Days): 3 GMLOS: 3.1 [facility] 04-06-2024 Note Formatting of this n ote is different from the original. Images from the original note were not included. Care Management Progress Note Pt s/p thrombectomy this am with vascular. Remains on heparin gtt while transitioning to coumadin. Pt active with [facility]- will continue services at [...] vasc consult 04/06/2024 [place] Cutler APRN - MANDREL MAKER 04/04/2024 4:04 AM 04/06/2024 [place] Cutler APRN - SHAMIKA 04/03/2024 11:17 PM Length of Stay (Days): 3 GMLOS: 3.1 [facility] 04-06-2024 Note Formatting of this n ote might be different from the original. Patient report called to 4N RN and denies any further questions. Patient resting comfortably and no signs of distress. Per resident patient to lay flat for 2 hours and restart heparin GTT at 1215. Transport notified. [facility] 04-06-2024 Note Formatting of this n ote might be different from the original. Patient report called to 4N RN and denies any further questions. Patient resting comfortably and no signs of distress. Per resident patient to lay flat for 2 hours and restart heparin GTT at 1215. Transport notified. [facility] 04-06-2024 Note Formatting of this n ote might be different from the original. SW assisted patient with completion of Health Care Power of Lead Assembler. One copy placed in patient chart, one copy sent to medical records and two copies given to patient. Requested by patient, while at bedside this SW spoke to patient's son via patients phone to explain that HCPOA was being completed by patient. Patients son José Miguel Castillo ([phone]) agreed to be this patients agent on the HCPOA and confirmed understanding. [employer] [facility] 04-06-2024 Note Formatting of this n ote might be different from the original. SW assisted patient with completion of Health Care Power of Lead Assembler. One copy placed in patient chart, one copy sent to medical records and two copies given to patient. Requested by patient, while at bedside this SW spoke to patient's son via patients phone to explain that HCPOA was being completed by patient. Patients danny Castillo ([phone]) agreed to be this patients agent on the HCPOA and confirmed understanding. [facility] 04-06-2024 Note Formatting of this n ote [...] technique was used to place a 5 Hungarian sheath. A Bentson wire was able to be advanced in the inferior vena cava without difficulty. The 5 Hungarian sheath was then upsized to a 16 Hungarian sheath and the penumbra flash suction thrombectomy device was prepared per hat steamer's instructions. The patient was also given 5000 units of heparin for systemic anticoagulation at this time. The Penumbra device was then inserted through the 16 Hungarian sheath and a suction thrombectomy was performed [...] device was removed as was the 16 Hungarian sheath and an 0 silk suture was [...] the case. Kristyn Blankenship MD Vascular Surgery [facility] [facility] 04-06-2024 Note Formatting of this n ote is different from the original. Date: 04/06/2024 Location: [facility] [place] Name: Mel Pop, : 1940, Diagnosis Pre-op Diagnosis * Right leg DVT (HCC) [I82.401] Post-op Diagnosis * Right leg DVT (HCC) [I82.401] Procedures RIGHT LOWER EXTREMITY VENOUS MECHANICAL THROMBECTOMY 00932 - NV PRQ TRANSLUMINAL MECHANICAL THROMBECTOMY VEIN Surgeons * Kristyn Blankenship - Primary Procedure Summary Anesthesia: General ASA: III Estimated Blood Loss: 300 mL Drains: * None in log * Staff: Manager Telemetry: Negrita Elizabeth RN; Amira Burton RN Scrub [...] antibiotics are not indicated for this procedure. [facility] 04-06-2024 Note Formatting of [...] technique was used to place a 5 Hungarian sheath. A Bentson wire was able to be advanced in the inferior vena cava without difficulty. The 5 Hungarian sheath was then upsized to a 16 Hungarian sheath and the penumbra flash suction thrombectomy device was prepared per hat steamer's instructions. The patient was also given 5000 units of heparin for systemic anticoagulation at this time. The Penumbra device was then inserted through the 16 Hungarian sheath and a suction thrombectomy was performed [...] device was removed as was the 16 Hungarian sheath and an 0 silk suture was [...] the case. Kristyn Blankenship MD Vascular Surgery [facility] 04-06-2024 Note Formatting of this n ote is different from the original. Date: 04/06/2024 Location: [facility] Name: Mel Pop, : 1940, Diagnosis Pre-op Diagnosis * Right leg DVT (HCC) [I82.401] Post-op Diagnosis * Right leg DVT (HCC) [I82.401] Procedures RIGHT LOWER EXTREMITY VENOUS MECHANICAL THROMBECTOMY 39410 - NV PRQ TRANSLUMINAL MECHANICAL THROMBECTOMY VEIN Surgeons * Kristyn Blankenship - Primary Procedure Summary Anesthesia: General ASA: III Estimated Blood Loss: 300 mL Drains: * None in log * Staff: Manager Telemetry: Negrita Elizabeth RN; Amira Burton RN Scrub [...] antibiotics are not indicated for this procedure. [facility] 04-06-2024 Note Formatting of this n ote might be different from the original. Dr Blankenship at bedside. She called family to update them on procedure time change [facility] 04-06-2024 Note Formatting of this n ote might be different from the original. Dr Blankenship at bedside. She called family to update them on procedure time change [facility] 04-06-[address] Blankenship at bedside. She called family to update them on procedure time change [facility] 04-05-2024 Note Formatting of this n ote is different from the original. Images from the original note were not included. Care Management Progress Note Vascular following with noted plan for possible thrombectomy tomorrow. Remains on heparin gtt while transitioning to coumadin per oncology recommendation. Pt from home alone- indep and active with [facility]- will return. Discharge Milestones and Delays [...] Length of Stay (Days): 2 GMLOS: 3.1 [facility] 04-05-2024 Note Formatting of this n ote is different from the original. Images from the original note were not included. Care Management Progress Note Vascular following with noted plan for possible thrombectomy tomorrow. Remains on heparin gtt while transitioning to coumadin per oncology recommendation. Pt from home alone- indep and active with [facility]- will return. Discharge Milestones and Delays [...] vasc consult 04/06/2024 Bernie Cutler APRN - MANDREL MAKER 04/04/2024 4:04 AM 04/06/2024 Bernie Cutler APRN - MANDREL MAKER 04/03/2024 11:17 PM Length of Stay (Days): 2 GMLOS: 3.1 [facility] 04-05-2024 Plan of care note The patient is Moderately Stable - Low risk of patient condition declining or worsening The patient's goals for the shift include met The clinical goals for the shift include met [facility] 04-04-2024 Consult note Formatting of th is note is different from the original. Images from the original note were not included. [facility] Hematology Oncology Inpatient Consultation [facility] Mel Pop : 1940(83 y.o.) [...] afib, hypertension, and GERD who presented to [facility] for right lower extremity [...] trifurcation vessels. Vascular surgery recommended transfer to [facility]. PVR and BLE US results pending however [...] called her listed contacts (her friend and [id number] however they do not manage her pill [...] eliquis. I have left a voicemail with [facility] pharmacy in [place] to see if the Eliquis is being [...] min Stress: No Stress Concern Present (04/04/2024) [employer] - Occupational Stress Questionnaire Feeling of Stress : Not at all Social Connections: Moderately Isolated (04/04/2024) Social Connection and Isolation Panel [NHANES] Frequency of Communication with Friends and Family: More than three times a week Frequency of Social Gatherings with Friends and Family: More than three times a week Attends Sikh Services: 1 to 4 times per year [...] 04/03/2024 [facility] 1940 [id number] Exam Date/Time: 04/03/2024 21:06 Procedure: CT HEAD [...] completing clinical documentation as well as with [id number] patient care, performing a medically appropriate examination, [...] well as answering questions. Andre Patel MD [facility] Work Phone: 04-04-2024 Consult note Formatting of th is note is different from the original. Images from the original note were not included. [facility] Hematology Oncology Inpatient Consultation [facility] Mel Pop : 1940(83 y.o.) [...] afib, hypertension, and GERD who presented to [facility] for right lower extremity [...] trifurcation vessels. Vascular surgery recommended transfer to [facility]. PVR and BLE US results pending however [...] called her listed contacts (her friend and [id number] however they do not manage her pill [...] left a voicemail with [facility] pharmacy in [place] to see if the Eliquis is being [...] min Stress: No Stress Concern Present (04/04/2024) [employer] - Occupational Stress Questionnaire Feeling of Stress : Not at all Social Connections: Moderately Isolated (04/04/2024) Social Connection and Isolation Panel [NHANES] Frequency of Communication with Friends and Family: More than three times a week Frequency of Social Gatherings with Friends and Family: More than three times a week Attends Sikh Services: 1 to 4 times per year [...] 04/03/2024 [facility]: [facility]EL POP : 1940 [id number] Exam Date/Time: 04/03/2024 21:14 Procedure: CTA AORTA [...] 04/03/2024 Patient Name: MEL POP : 1940 [facility]#: [id number] Exam Date/Time: 04/03/2024 21:06 Procedure: CT HEAD [...] completing clinical documentation as well as with [id number] patient care, performing a medically appropriate examination, [...] Lolita Sarah MD PGY5, General Surgery Pager #[phone] Past Medical History: Diagnosis Date Asthma Essential [...] min Stress: No Stress Concern Present (04/04/2024) [employer] - Occupational Stress Questionnaire Feeling of Stress : Not at all Social Connections: Moderately Isolated (04/04/2024) Social Connection and Isolation Panel [NHANES] Frequency of Communication with Friends and Family: More than three times a week Frequency of Social Gatherings with Friends and Family: More than three times a week Attends Sikh Services: 1 to 4 times per year [...] TESTING: Patient Name: MEL POP : 1940 [facility]#: [id number] Exam Date/Time: 04/03/2024 21:14 Procedure: CTA AORTA [...] evidence of phlegmasia. Heparin gtt initiated at [facility] prior to transfer and continued here. She notes missed doses of her Eliquis. Recommend compression and elevation of the right lower extremity. Can consider mechanical thrombectomy however given patient's age, this may be more risk than of benefit. Will continue to monitor for symptom improvement on anticoagulation alone. documented in this encounter [facility] 04-04-2024 Note Formatting of this n ote might be different from the original. Care Managment Initial Assessment Date: 04/04/2024 Patient Name: Mel Pop : 1940 Patient Information Source of Information: Patient Cognition/Language: WFL - Within Functional Limits Permission given to speak with patient community health program representative/caregiver as indicated: Confirmation of Payer with [...] home alone and indep. Pt active with [facility]- liaison following for continued services. Pt uses walker/cane at baseline. Pt has insurance, PCP and able to obtain meds. Pt's friends help with transportation. No needs antic at discharge. Virginia Rehman RN [facility] 04-04-2024 Note Formatting of this n ote might be different from the original. Care Managment Initial Assessment Date: 04/04/2024 Patient Name: Mel Pop : 1940 Patient Information Source of Information: Patient Cognition/Language: WFL - Within Functional Limits Permission given to speak with patient community health program representative/caregiver as indicated: Confirmation of Payer with patient/family: Yes Payer Name: rey [place]: No Confirmation of Primary Care Physician: Confirmed [...] Health Services Care Services Provider Name: inna [facility] Dialysis Type: NA Durable Medical Equipment: [...] needs antic at discharge. Virginia Rehman RN [facility] 04-04-2024 Note Formatting of this n ote is different from the original. Start PACC Note Home Health Referral Educated patient on Home Care and services available. Patient offered choice of available HHC and agreeable to SN/PT services with [facility]. Care [...] is noted as yes - consider a DIRECTOR OF PULMONARY UNIT evaluation once the patient returns home. START PATIENT REGISTRATION INFORMATION Order Information Order Signing Physician: Robert Vigil MD Service Ordered RN ?: Yes Service Ordered PT ?: Yes Service Ordered OT ?: No Service Ordered ST ?: No Service Ordered DIRECTOR OF PULMONARY UNIT?:No Service Ordered TELEVISION RECEIVER ANALYZER?: No Following Physician: Jared Evans MD Following Physician Overseeing Physician: Jared Evans MD (Required for Residents only) Agreeable to Follow? Yes Date/Time of Call 04/04/24 11:36 AM, Spoke with: Patient is a DEB. Care Coordination Same Day SOC?: No Primary Care Physician: Jared Evans MD Primary Care Physician Primary Care Physician Address: [address] [place] [id number] Visit Instructions: N/A Service Discharge Location Type: Home with Home Care Service Facility Name: N/A Service Floor Facility: N/A Service Room No: N/A Demographics Patient Last Name: Jose Alberto Patient First Name: Mel Language/Communication Barrier: none Service Address: [address] [place] [address] Dr Scar Veliz Service City: [place] Service ST: [place] Service ZIP: [address] Service Other phone numbers: Telephone Information: Emergency [...] Caregiver Phone Number: na Caregiver Notes: N/A Exepron-CytRx List No END PATIENT REGISTRATION INFORMATION Pt [...] intervention. Discharge Date: pending Referral Source-PACC: (Hospital/Unit): [facility] / N4-461/N4-461 B End PACC Note [facility] 04-04-2024 Note Formatting of this n ote is different from the original. Start PACC Note Home Health Referral Educated patient on Home Care and services available. Patient offered choice of available HHC and agreeable to SN/PT services with [facility]. Care Types: [...] is noted as yes - consider a DIRECTOR OF PULMONARY UNIT evaluation once the patient returns home. START PATIENT REGISTRATION INFORMATION Order Information Order Signing Physician: Robert Vigil MD Service Ordered RN ?: Yes Service Ordered PT ?: Yes Service Ordered OT ?: No Service Ordered ST ?: No Service Ordered DIRECTOR OF PULMONARY UNIT?:No Service Ordered TELEVISION RECEIVER ANALYZER?: No Following Physician: Jared Evans MD Following Physician Overseeing Physician: Jared Evans MD (Required for Residents only) Agreeable to Follow? Yes Date/Time of Call 04/04/24 11:36 AM, Spoke with: Patient is a DEB. Care Coordination Same Day SOC?: No Primary Care Physician: Jared Evans MD Primary Care Physician Primary Care Physician Address: [address] [place] [address] / [facility] [id number] Visit Instructions: N/A Service Discharge Location Type: Home with Home Care Service Facility Name: N/A Service Floor Facility: N/A Service Room No: N/A Demographics Patient Last Name: Jose Alberto Patient First Name: Mel Language/Communication Barrier: none Service Address: [address] Service City: [place] Service ST: [place] Service ZIP: [address] Service Other phone numbers: Telephone Information: Emergency [...] Caregiver Phone Number: na Caregiver Notes: N/A Outline App Hi-Tech List No END PATIENT REGISTRATION INFORMATION [...] intervention. Discharge Date: pending Referral Source-PACC: (Hospital/Unit): [facility] / N4-461/N4-461 B End PACC Note [facility] 04-04-2024 Plan of care note The patient is Moderately Stable - Low risk of patient condition declining or worsening The patient's goals for the shift include safety The clinical goals for the shift include therapeutic aptt [facility] 04-04-2024 Note Formatting of this n ote might be different from the original. Patient is currently active with [facility]. The patients current certification period will on 05/18/24. The patient is currently receiving PT services through the agency. Sprinkler Repair Technician to continue to follow. [facility] 04-04-2024 Note Formatting of this n ote might be different from the original. Patient is currently active with [facility]. The patients current certification period will on 05/18/24. The patient is currently receiving PT services through the agency. Sprinkler Repair Technician to continue to follow. [facility] 04-04-2024 Consult note Associated Order (s): IP [...] Lolita Sarah MD PGY5, General Surgery Pager #[phone] Past Medical History: Diagnosis Date Asthma Essential [...] min Stress: No Stress Concern Present (04/04/2024) [employer] - Occupational Stress Questionnaire Feeling of Stress : Not at all Social Connections: Moderately Isolated (04/04/2024) Social Connection and Isolation Panel [NHANES] Frequency of Communication with Friends and Family: More than three times a week Frequency of Social Gatherings with Friends and Family: More than three times a week Attends Sikh Services: 1 to 4 times per year [...] (H) 04/03/2024 VASCULAR TESTING: Patient Name: MEL PPO : 1940 [facility]#: [id number] Exam Date/Time: 04/03/2024 21:14 Procedure: CTA AORTA [...] evidence of phlegmasia. Heparin gtt initiated at [facility] prior to transfer and continued here. She notes missed doses of her Eliquis. Recommend compression and elevation of the right lower extremity. Can consider mechanical thrombectomy however given patient's age, this may be more risk than of benefit. Will continue to monitor for symptom improvement on anticoagulation alone. [facility] Work Phone: 04-04-2024 Note Formatting of this [...] - DO NOT do CPR, intubation] [_] [DNR-JUNIOR WEB DESIGNER - Comfort care only] [_] DNR form [...] DO [facility] 04/04/2024, 5:40 AM [facility] 04-04-2024 Note Formatting of this n ote [...] - DO NOT do CPR, intubation] [_] [DNR-JUNIOR WEB DESIGNER - Comfort care only] [_] DNR form [...] patient and/or family/surrogate. Pratibha Avelar DO [facility] 04/04/2024, 5:40 AM T [facility] 04-04-2024 History and physical note Attending [...] min Stress: No Stress Concern Present (04/04/2024) [place] - Occupational Stress Questionnaire Feeling of Stress : Not at all Social Connections: Moderately Isolated (04/04/2024) Social Connection and Isolation Panel [NHANES] Frequency of Communication with Friends and Family: More than three times a week Frequency of Social Gatherings with Friends and Family: More than three times a week Attends Sikh Services: 1 to 4 times per year [...] DO Division of Hospitalist Medicine Inpatient Medical Services/[facility] Work Phone: 04-04-2024 Note [facility] 04-04-2024 History and physical note Attending [...] min Stress: No Stress Concern Present (04/04/2024) [place] - Occupational Stress Questionnaire Feeling of Stress : Not at all Social Connections: Moderately Isolated (04/04/2024) Social Connection and Isolation Panel [NHANES] Frequency of Communication with Friends and Family: More than three times a week Frequency of Social Gatherings with Friends and Family: More than three times a week Attends Sikh Services: 1 to 4 times per year [...] Relation: Child Pratibha Avelar DO [facility] documented in this encounter [facility] 04-04-2024 Plan of care note The patient is Moderately Stable - Low risk of patient condition declining or worsening The patient's goals for the shift include met The clinical goals for the shift include met Over the shift, the patient did not make progress toward the following goals. Barriers to progression include . Recommendations to address these barriers include . [facility] 04-04-2024 Emergency department Note Report to Delia Bond RN 04/04/24 034 [facility] 04-04-2024 Emergency department Note Report to Delia Bond RN 04/04/24 034 Multiple attempts made to call report to [facility] with phone number provided by farm 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 Will try again. Shannon Bond RN 04/04/24 033 [facility] at bedside to transport pt to [facility]. Paperwork with EMS Shannon Bond RN 04/04/24 3507 EMERGENCY DEPARTMENT ENCOUNTER Pt Name: Mel Pop [...] Resource Strain: Low Risk (05/18/2022) Received from [facility] Overall Financial Resource Strain (CARDIA) Difficulty of Paying Living Expenses: Not hard at all Food Insecurity: No Food Insecurity (05/18/2022) Received from [facility] Hunger Vital Sign Worried About Running Out of Food in the Last Year: Never true Ran Out of Food in the Last Year: Never true Transportation Needs: No Transportation Needs (05/18/2022) Received from [facility] PRAPARE - Transportation Lack of Transportation (Medical): No Lack of Transportation (Non-Medical): No Housing Stability: Unknown (05/18/2022) Received from [facility] Housing Stability Vital Sign Unable to [...] Physician EKG interpretation can be found in [facility] RADIOLOGY (Per Emergency Physician): Interpretation per [...] SEBASTIAN Herrera CNP 04/03/242237 Emergency Department Encounter [facility] Patient: Mel Pop : [...] consulted recommends heparin drip and transferred to [facility], 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 Patient admitted to [facility]. Patient in agreement with plan. Diagnostics interpreted [...] or other complaints. documented in this encounter [facility] 04-04-2024 Emergency department Note Multiple attempts made to call report to [facility] with phone number provided by farm 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 Will try again. Shannon Bond RN 04/04/24 0331 [facility] 04-04-2024 Emergency department Note [facility] at bedside to transport pt to [facility]. Paperwork with EMS Shannon Bond RN 04/04/24 0314 [facility] 04-03-2024 Emergency department Triage note Pt [...] upon arrival. No SOB or other complaints. [facility] 04-03-2024 Physician Emergency department Note EMERGENCY [...] Resource Strain: Low Risk (05/18/2022) Received from [facility] Overall Financial Resource Strain (CARDIA) Difficulty of Paying Living Expenses: Not hard at all Food Insecurity: No Food Insecurity (05/18/2022) Received from [facility] Hunger Vital Sign Worried About Running Out of Food in the Last Year: Never true Ran Out of Food in the Last Year: Never true Transportation Needs: No Transportation Needs (05/18/2022) Received from [facility] PRAPARE - Transportation Lack of Transportation (Medical): No Lack of Transportation (Non-Medical): No Housing Stability: Unknown (05/18/2022) Received from [facility] Housing Stability Vital Sign Unable to [...] signed) Emergency Medicine Provider SEBASTIAN Herrera CNP 04/03/243 [facility] 04-03-2024 Physician Emergency department Note Emergency Department Encounter [facility] Patient: Mel Pop : [...] consulted recommends heparin drip and transferred to [facility], 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 Patient admitted to [facility]. Patient in agreement with plan. Diagnostics interpreted [...] [employer] Winifred Cornell DO 04/06/24 1625 [facility] [employer] Work Phone: 07-27-2023 History of Present illness Narrative [facility] [address] [place] [address] [place] [id number] Dept: [phone] Dept Mel Pop 1940 [id number] 07/27/2023 HISTORY OF PRESENT ILLNESS: Mel is [...] improve. Electronically signed by Ming Weinberg MD [facility] [employer] [employer] Department of Orthopedic surgery 07/27/2023 5:21 PM Voice recognition was used for portions of this note and although it was reviewed prior to signing some incorrect words or phrases could be present. documented in this encounter [facility] 07-06-2022 Miscellaneous Notes PATIENT INFORMATION Record ID: [id number] Patient Name: Mel [facility]: [facility] Snover: [facility] Attending: Iwona Chu Center: Internal Medicine and Geriatrics INSTRUCTIONS All Clear SN to remind patient of next upcoming appointment date, time, location All Clear All Clear All Clear SURVEY INFORMATION Medical/Nurse Supervisor Hard Candy: Inés Tubbs 1. Your discharge instructions are [...] No documented in this encounter [facility] 06-29-2022 Note HNO ID: [id number] Author: Joana Tolbert RPh Service: Pharmacy Author [...] Post discharge follow up instruction Joana Tolbert [facility] June 29, 2022 3:32 PM Medication [...] Medications These medications were sent to [facility] [address] [place] [address] Hours: Tuesday-Tuesday, 8am-4:30pm apixaban 5 mg (74 tabs) ascorbic acid (vitamin C) 500 mg tablet bacitracin 500 unit/gram ointment guaiFENesin 600 mg 12 hr tablet HYDROcodone-acetaminophen 5-325 mg per tablet lactobacillus rhamnosus 10 billion cell capsule metoprolol tartrate (short acting) [address] 40 mg tablet sucralfate 1 gram tablet [facility] 06-29-2022 Note HNO ID: [id number] Author: Kassidy Mejia RN Service: Care Management [...] needs and plan for meeting these needs: [facility] HANDOFF COMMUNICATION: TRANSPORTATION ARRANGEMENTS: Transportation Arrangements: Car ADDITIONAL CONTACT RESOURCES: [facility] was able to approve and deliver home O2. SIGNATURE: Kassidy Mejia RN PATIENT NAME: Mel Castillo DATE: June 29, 2022 TIME: 12:38 PM PAGER/CONTACT #: [phone] [facility] 06-28-2022 Note HNO ID: [id number] Author: Iwona Chu DO Service: Hospital Medicine Author Type: Physician Type: Progress Notes Filed: 06/28/2022 8:58 PM Note Text: Needs O2 arranged before discharge [facility] 06-28-2022 Note HNO ID: [id number] Author: Irene Han RN Service: Care Management [...] In Person (verbalized understanding) Referral sent to [facility] for home going O2. Awaiting ambulatory pox to be completed. Plan to return home with family support and HHC through [facility]. Family to transport. Will need home O2/HC orders, prior to dc. IMM completed. UPDATE @ 1435: [facility] is outside of the patient's service area. Additional DMR referrals sent to [facility] and [facility]; awaiting response. Will need accepting DMR provider and home O2 delivery, prior to discharge. Oxygen/HC orders in [facility]. SIGNATURE: Irene Han RN PATIENT NAME: Mel Castillo DATE: June 28, 2022 TIME: 1:58 PM PAGER/CONTACT #: [phone] [facility] 06-28-2022 Note HNO ID: [id number] Author: Iwona Chu DO Service: Hospital Medicine [...] micropuncture needle and serially upsized to a 5-Hungarian sheath. A venogram was then performed, which [...] time, the sheath was upsized to an 8-Hungarian sheath. An intravascular ultrasound was performed. This [...] [facility] 06-27-2022 Note HNO ID: [id number] Author: Iwona Chu DO Service: Hospital Medicine [...] micropuncture needle and serially upsized to a 5-Hungarian sheath. A venogram was then performed, which [...] time, the sheath was upsized to an 8-Hungarian sheath. An intravascular ultrasound was performed. This [...] [facility] 06-26-2022 Note HNO ID: [id number] Author: Iwona Chu DO Service: Hospital Medicine [...] micropuncture needle and serially upsized to a 5-Hungarian sheath. A venogram was then performed, which [...] time, the sheath was upsized to an 8-Hungarian sheath. An intravascular ultrasound was performed. This [...] [facility] 06-25-2022 Note HNO ID: [id number] Author: Heron Ayers MD Service: Hospital Medicine [...] 18107/02/22 0859 06/16/221944 [place]te [place] 11/30/22 1945 activity - [place]ize [place] VTE Prophylaxis: VTE prophylaxis appropriate Disposition: Home Plan of care discussed with: Provider, RN, Patient SIGNATURE: Heron Ayers MD PATIENT NAME: Mel Castillo DATE: June 25, 2022 TIME: 12:03 PM etx [id number] [facility] 06-25-2022 Note HNO ID: [id number] Author: Kassidy Mejia RN Service: Care Management [...] 25, 2022 TIME: 11:30 AM PAGER/CONTACT #: [phone] [facility] 06-24-2022 Note HNO ID: [id number] Author: Richie Yi MD Service: General Internal Medicine Author Type: Physician Type: Progress Notes Filed: 06/24/2022 6:34 PM Note Text: DEPARTMENT OF HOSPITAL MEDICINE PROGRESS NOTE SERVICE DATE: 06/23/2022 SERVICE TIME: 7:19 PM Hospital Medicine/Primary Attending: Richie Yi MD NIGHT AND WEEKEND COVERAGE: [place] COVERAGE: After 7pm, please call cross cover pager #[phone] Subjective Patient was seen today. She is [...] 0300 06/16/22 194 vte current anticoag therapy ([place]) 06/16/221944 activity - mobilize patient ([place] VTE Prophylaxis: VTE prophylaxis appropriate Disposition: To be determined Plan of care discussed with: Provider, RN, Patient SIGNATURE: Richie Yi MD PATIENT NAME: Mel Castillo DATE: June 23, 2022 TIME: 7:19 PM etx [id number] [facility] 06-24-2022 Note HNO ID: [id number] Author: SHAQUILLE Kaye Service: Care Management Author Type: Medical Dermatologist Type: Care Mgt Progress Note Filed: 06/24/2022 [...] 24, 2022 TIME: 1:02 PM PAGER/CONTACT #: [phone] [facility] 06-23-2022 Note HNO ID: [id number] Author: Richie Yi MD Service: General Internal Medicine Author Type: Physician Type: Progress Notes Filed: 06/23/2022 7:28 PM Note Text: DEPARTMENT OF HOSPITAL MEDICINE PROGRESS NOTE SERVICE DATE: 06/23/2022 SERVICE TIME: 7:19 PM Hospital Medicine/Primary Attending: Richie Yi MD NIGHT AND WEEKEND COVERAGE: [place] COVERAGE: After 7pm, please call cross cover pager #[phone] Subjective Patient was seen today. She is [...] Subtherapeutic PTTAC) 0-30 mL[facility] Report. 0-3,000 Units/hr INTRAVENOUS CONTINUOUS Rate Verify, 06/23 1617 06/22/22 1028 -- 06/16/221944 vte current anticoag therapy ([place]) 06/16/221944 activity - mobilize patient ([place] VTE Prophylaxis: VTE prophylaxis appropriate Disposition: To be determined Plan of care discussed with: Provider, RN, Patient SIGNATURE: Richie Yi MD PATIENT NAME: Mel Castillo DATE: June 23, 2022 TIME: 7:19 PM etx [id number] [facility] 06-23-2022 Note HNO ID: [id number] Author: Kassidy Mejia RN Service: Care Management Author Type: Registered Nurse Type: Care Mgt Progress Note Filed: 06/23/2022 4:00 PM Note Text: CARE MANAGEMENT PROGRESS NOTE SERVICE DATE: 06/23/2022 SERVICE TIME: 3:55 PM LOS: 7 days Spoke with pt at the bedside. Discussed SNF placement. Auth obtained for [facility]- pt would be responsible for copay 50% of cost per day for days 1-100. Pt refusing SNF at this time. Pt would like to d/c home with her son and dtr-in-law to ([address] [place] [address]). [facility] agree[facility]- Referrals sent. Pt may need home O2- await ambulatory pulse ox. Family likely able to transport at d/c. CM to follow. SIGNATURE: Kassidy Mejia RN PATIENT NAME: Mel Castillo DATE: June 23, 2022 TIME: 3:53 PM PAGER/CONTACT #: [phone] [facility] 06-22-2022 Note HNO ID: [id number] Author: Dwayne Zaidi MD Service: Hospital Medicine Author Type: Physician Type: Progress Notes Filed: 06/22/2022 6:47 PM Note Text: DEPARTMENT OF HOSPITAL MEDICINE PROGRESS NOTE SERVICE DATE: 06/22/2022 SERVICE TIME: 6:42 PM Hospital Medicine/Primary Attending: Dwayne Zaidi MD NIGHT AND WEEKEND COVERAGE: After 7pm please page [phone] CHIEF COMPLAINT: Follow-up for acute left lower [...] sounds normally heard, no mass palpable MANAGER SUPPLY CHAIN- cranial nerves 2 to 12 grossly intact, [...] [facility] 06-22-2022 Note HNO ID: [id number] Author: Kassidy Mejia RN Service: Care Management Author Type: Registered Nurse Type: Care Mgt Progress Note Filed: 06/22/2022 10:15 AM Note Text: CARE MANAGEMENT PROGRESS NOTE SERVICE DATE: 06/22/2022 SERVICE TIME: 10:15 AM LOS: 6 days IMM Follow Up Copy Given: Yes Copy given to:: Patient Method: In Person (verbal) [facility] is able to accept pt. Precert tasked. Pt will need cot for transport. CM to follow. SIGNATURE: Kassidy Mejia RN PATIENT NAME: Mel Castillo DATE: June 22, 2022 TIME: 10:14 AM PAGER/CONTACT #: [phone] [facility] 06-21-2022 Note HNO ID: [id number] Author: Dwayne Zaidi MD Service: Hospital Medicine Author Type: Physician Type: Progress Notes Filed: 06/21/2022 4:10 PM Note Text: DEPARTMENT OF HOSPITAL MEDICINE PROGRESS NOTE SERVICE DATE: 06/21/2022 SERVICE TIME: 4:04 PM Hospital Medicine/Primary Attending: Dwayne Zaidi MD NIGHT AND WEEKEND COVERAGE: After 7pm please page [phone] CHIEF COMPLAINT: Follow-up for acute left lower [...] sounds normally heard, no mass palpable MANAGER SUP[employer] CHAIN- cranial nerves 2 to 12 grossly intact, [...] [facility] 06-21-2022 Note HNO ID: [id number] Author: Ksasidy Mejia RN Service: Care Management Author Type: Registered Nurse Type: Care Mgt Progress Note Filed: 06/21/2022 3:44 PM Note Text: CARE MANAGEMENT PROGRESS NOTE SERVICE DATE: 06/21/2022 SERVICE TIME: 3:41 PM LOS: 5 days Spoke with pt at the bedside. Pt states that she lives at home alone. PT/OT rec SNF. Pt would like [facility]- referral sent. Await acceptance. Pt will need precert when medically stable. Pt will need cot for transport. Cm to follow. SIGNATURE: Kassidy Mejia RN PATIENT NAME: Mel Castillo DATE: June 21, 2022 TIME: 3:41 PM PAGER/CONTACT #: [phone] [facility] 06-21-2022 Note HNO ID: [id number] Author: Primo Dodd APRN.SHAMIKA Service: Gastroenterology Author [...] [facility] 06-20-2022 Note HNO ID: [id number] Author: Acacia Hardin DO Service: General Surgery Author Type: Resident Type: Plan of Care Filed: 06/20/2022 1:40 PM Note Text: Plan of Care Dr. 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 Spoke with Dr. Ferrell, wallpaper consultant for Dr. Rodriguez, and she states these [...] [facility] 06-20-2022 Note HNO ID: [id number] Author: Dwayne Zaidi MD Service: Hospital Medicine Author Type: Physician Type: Progress Notes Filed: 06/20/2022 12:39 PM Note Text: DEPARTMENT OF HOSPITAL MEDICINE PROGRESS NOTE SERVICE DATE: 06/20/2022 SERVICE TIME: 12:35 PM Hospital Medicine/Primary Attending: Dwayne Zaidi MD NIGHT AND WEEKEND COVERAGE: After 7pm please page [phone] CHIEF COMPLAINT: Follow-up for acute left lower [...] sounds normally heard, no mass palpable MANAGER SUP[employer] CHAIN- cranial nerves 2 to 12 grossly intact, [...] [facility] 06-19-2022 Note HNO ID: [id number] Author: Dwayne Zaidi MD Service: Hospital Medicine Author Type: Physician Type: Progress Notes Filed: 06/19/2022 4:33 PM Note Text: DEPARTMENT OF HOSPITAL MEDICINE PROGRESS NOTE SERVICE DATE: 06/19/2022 SERVICE TIME: 4:29 PM Hospital Medicine/Primary Attending: Dwayne Zaidi MD NIGHT AND WEEKEND COVERAGE: After 7pm please page [phone] CHIEF COMPLAINT: Follow-up for acute left lower [...] sounds normally heard, no mass palpable MANAGER SUPPLY CHAIN- cranial nerves 2 to 12 grossly intact, [...] [facility] 06-18-2022 Note HNO ID: [id number] Author: Emanuel Hull MD Service: General Surgery [...] [facility] 06-18-2022 Note HNO ID: [id number] Author: Dwayne Zaidi MD Service: Hospital Medicine Author Type: Physician Type: Progress Notes Filed: 06/18/2022 5:37 PM Note Text: DEPARTMENT OF HOSPITAL MEDICINE PROGRESS NOTE SERVICE DATE: 06/18/2022 SERVICE TIME: 5:35 PM Hospital Medicine/Primary Attending: Dwayne Zaidi MD NIGHT AND WEEKEND COVERAGE: After 7pm please page [phone] CHIEF COMPLAINT: Follow-up for acute left lower [...] sounds normally heard, no mass palpable MANAGER SUP[employer] CHAIN- cranial nerves 2 to 12 grossly intact, [...] [facility] 06-18-2022 Note HNO ID: [id number] Author: Kassidy Mejia RN Service: Care Management [...] 18, 2022 TIME: 3:46 PM PAGER/CONTACT #: [phone] [facility] 06-17-2022 Note HNO ID: [id number] Author: Eliza Parikh RN Service: Nursing Author Type: Registered Nurse Type: Nursing Progress Note Filed: 06/17/2022 7:24 PM Note Text: Pt to 4200 via bed. Pt tolerated well. [facility] 06-17-2022 Note HNO ID: [id number] Author: Eliza Parikh RN Service: Nursing Author Type: Registered Nurse Type: Nursing Progress Note Filed: 06/17/2022 4:35 PM Note Text: Report to [address]A [facility] 06-17-2022 Note HNO ID: [id number] Author: Efrain Ivey (Labor Representative) Service: Pharmacy Author Type: Human Geography Faculty Member Type: Plan of Care Filed: 06/17/2022 2:16 PM Note Text: PHARMACY MEDICATION REVIEW Patient Name: Mel Castillo : 1940 The following medications were updated within the [employer] medication list: Medications ADDED to [employer] medication list amLODIPine (NORVASC) 10 mg tablet OTHER Yes Yes dexAMETHasone (DECADRON) 4 mg tablet OTHER Yes Yes lisinopril (ZESTRIL, PRINIVIL) 5 mg tablet OTHER Yes Yes RX filled via [facility] and verified with pt. herself Medications CHANGED on [employer] medication list na Medications REMOVED from [employer] medication list na Additional comments: I was able to talk with the pt. about her home medications. She states she takes the 3 RX medications recorded below. These 3 medications were added to her [employer] list. She has finished Paxlovid and a physician stopped Augmentin per pt. interview Required follow up for nursing. Medication history completed by Historian. No nursing follow up required. The below information represents the best possible medication history: Yes Medication history completed by: Human Geography Faculty Member: Efrain Ivey ([employer]) Source of history: Patient: Reliability of source: Appears reliable, clearly identified: Medication name, Medication dose, Medication route, and Medication frequency and Pharmacy records: Epic e-script [facility] Medication nonadherence identified: No barriers noted Reconciliation completed: No, pharmacist not yet reviewed Patient interested in Bedside Delivery Services or using OP Pharmacy at discharge? No Preferred outpatient pharmacy: [id number] [place] [address] - [address] [phone] [id number] Allergies: Percocet [Oxycodone* Itching Prior to Admission [...] once daily. Facility-Administered Medications: None Efrain Ivey ([employer]) phone [phone] 06/17/2022 [facility] 06-17-2022 Note HNO ID: [id number] Author: Ladan Adame RN Service: Care Management [...] 17, 2022 TIME: 12:37 PM PAGER/CONTACT #: [phone] [facility] 06-17-2022 Note HNO ID: [id number] Author: Eliza Parikh RN Service: Nursing Author Type: Registered Nurse Type: Nursing Progress Note Filed: 06/17/2022 10:40 AM Note Text: Echo at bedside [facility] 06-16-2022 Note HNO ID: [id number] Author: Cirilo Alaniz APRN.CRNA Service: Anesthesiology Author Type: Nurse Supervisor Tunnel Heading Type: Anesthesia Procedure Notes Filed: 06/16/2022 5:04 PM Note Text: ANESTHESIOLOGY PROCEDURE NOTE Airway General Information Procedure Start Time/Medication Administration: 06/16/2022 4:29 PM Patient location during procedure: OR Timeout Performed Pre-procedure: timeout performed Consent Obtained: Yes Patient identity confirmed: arm band and patient Staffing EYELET MAKER: Cirilo Alaniz APRN.EYELET MAKER Indications and Patient Condition Indications for airway management: anesthesia Preoxygenated: yes anesthesia circuit Method: asleep Difficult Mask: No Final Airway Details Final airway type: endotracheal airway Final Endotracheal Airway: ETT Cuffed: yes Successful intubation technique: video laryngoscopy Devices used: [employer] Endotracheal tube insertion site: oral Blade: Kit Blade size: #3 ETT size (mm): 7.0 Measured from: lips Measurement (cm): 21 Placement verified by: chest auscultation and capnometry Cormack-Lehane Classification: grade I - full view of glottis Number of attempts at approach: 1 Airway not difficult SIGNATURE: Cirilo Alaniz APRN.CRNA PATIENT NAME: Mel Castillo DATE: June 16, 2022 TIME: 5:03 PM CSN: [id number] [facility] 06-16-2022 Note HNO ID: [id number] Author: Jean Pierre Gamboa RPh Service: Pharmacy [...] patient. Signature: Jean Pierre Gamboa tali Pager/Extension: [phone] [facility] 05-17-2022 History of Present [...] be seen in the emergency room at [facility] for probable admission for IV antibiotics and airway concern. Patient understands this and will leave shortly. Josiah Barnes MD Findings will be communicated to the referring physician via mail or electronic medical record. documented in this encounter [facility] 05-14-2022 Instructions Jared Velazquez PA-C - [...] in agreement with plan of care. Jared eVlazquez PA-C documented in this encounter [facility] 05-14-2022 History of Present illness Narrative [...] which included preparing to see the patient, [id number] patient care, completing clinical documentation, performing a medically appropriate examination, counseling and educating the patient/family/caregiver, and ordering medications, tests, or procedures. 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 [facility] Diagnosis Acute bacterial sialadenitis- Primary Bashir's, angina [facility] Diagnosis Localized swelling, mass and lump, neck Swelling, mass, or lump in head and neck [facility] Diagnosis Localized swelling, mass and lump, neck Swelling, mass, or lump in head and neck [facility] Diagnosis Localized swelling, mass and lump, neck- Primary Swelling, mass, or lump in head and neck Localized swelling, mass and lump, neck Swelling, mass, or lump in head and neck [facility] Other specified soft tissue disorders [facility] Diagnosis Localized swelling, mass and lump, neck- Primary Swelling, mass, or lump in head and neck Localized swelling, mass and lump, neck Swelling, mass, or lump in head and neck [facility] Diagnosis Abnormal findings on diagnostic imaging of other specified body structures Pain in left leg [facility] 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[facility]* Diagnosis Other specified soft tissue disorders- Primary Other specified soft tissue disorders [facility]* Diagnosis Abnormal findings on diagnostic imaging of other specified body structures- Primary Pain in left leg Abnormal findings on diagnostic imaging of other specified body structures Pain in left leg [facility]* Diagnosis Peripheral arterial disease (HCC)- Primary Unspecified peripheral vascular disease Right leg pain Pain in soft tissues of limb Peripheral arterial disease (HCC) Unspecified peripheral vascular disease Right leg weakness Muscle weakness (generalized) Atrial fibrillation, unspecified type (HCC) Ischemic leg Unspecified circulatory system disorder [facility]* Diagnosis Deep vein thrombosis (DVT) of lower extremity, unspecified chronicity, unspecified laterality, unspecified vein (HCC)- Primary [facility] Diagnosis Atrial fibrillation, unspecified type (HCC) Acute venous embolism and thrombosis of deep vessels of proximal end of right lower extremity (HCC) [facility] Diagnosis Acute deep vein thrombosis (DVT) of iliac vein of right lower extremity (HCC)- Primary PAD (peripheral artery disease) (HCC) Unspecified peripheral vascular disease [facility]* Diagnosis Deep vein thrombosis (DVT) of lower extremity, unspecified chronicity, unspecified laterality, unspecified vein (HCC) Atrial fibrillation, unspecified type (HCC) Acute venous embolism and thrombosis of deep vessels of proximal end of right lower extremity (HCC) [facility] Diagnosis Atrial fibrillation, unspecified type (HCC) Acute venous embolism and thrombosis of deep vessels of proximal end of right lower extremity (HCC) [facility]* Diagnosis Atrial fibrillation, unspecified type (HCC) Acute venous embolism and thrombosis of deep vessels of proximal end of right lower extremity (HCC) documented in this encounter [facility] note* Diagnosis Paroxysmal atrial fibrillation (HCC) Atrial fibrillation documented in this encounter 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 note* Diagnosis Retinal detachment, right- Primary Unspecified retinal detachment Vision loss of right eye Unqualified visual loss, one eye Acute intractable headache, unspecified headache type Visual disturbance, subjective Unspecified subjective visual disturbance Vision loss of right eye Unqualified visual loss, one eye Visual disturbance, subjective Unspecified subjective visual disturbance documented in this encounter 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 Hemorrhagic choroidal detachment Dislocation of intraocular lens, initial encounter Hemorrhagic choroidal detachment of right eye Hemorrhagic choroidal detachment documented in this encounter [facility] note* Diagnosis 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 Hemorrhagic choroidal detachment Hemorrhagic choroidal detachment of right eye Hemorrhagic choroidal detachment documented in this encounter [facility] note* Diagnosis Postoperative eye state- Primary Other states following surgery of eye and adnexa Hemorrhagic choroidal detachment of right eye Hemorrhagic choroidal detachment Pseudophakia, right eye Lens replaced by other means Subluxation of right lens Subluxation of lens documented in this encounter [facility] note* Diagnosis Paroxysmal atrial fibrillation (HCC)- Primary Atrial fibrillation Paroxysmal atrial fibrillation (HCC) Atrial fibrillation documented in this encounter [facility] note* Diagnosis Postoperative eye state Other states following surgery of eye and adnexa Hemorrhagic choroidal detachment of right eye Hemorrhagic choroidal detachment Pseudophakia, right eye Lens replaced by other means Subluxation of right lens Subluxation of lens Hemorrhagic choroidal detachment of right eye Hemorrhagic choroidal detachment [facility] Diagnosis Post-operative state- Primary Other postprocedural status [facility] Diagnosis Postoperative eye state Other states following surgery of eye and adnexa Hemorrhagic choroidal detachment of right eye Hemorrhagic choroidal detachment Pseudophakia, right eye Lens replaced by other means Subluxation of right lens Subluxation of lens [facility] Diagnosis Aspiration pneumonitis (CMS/HCC) (HCC)- Primary Pneumonitis due to inhalation of food or vomitus Aspiration pneumonitis (CMS/HCC) (HCC) Pneumonitis due to inhalation of food or vomitus Vomiting and diarrhea LORENZA (acute kidney injury) (HCC) [facility] Diagnosis Acute deep vein thrombosis (DVT) of iliac vein of right lower extremity (HCC)- Primary PAD (peripheral artery disease) (HCC) Unspecified peripheral vascular disease [facility] Diagnosis Postoperative eye state Other states following surgery of eye and adnexa Hemorrhagic choroidal detachment of right eye Hemorrhagic choroidal detachment Pseudophakia, right eye Lens replaced by other means Subluxation of right lens Subluxation of lens [facility] Diagnosis 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 Hemorrhagic choroidal detachment Right retinal detachment Unspecified retinal detachment Postoperative eye state Other states following surgery of eye and adnexa Pseudophakia, right eye Lens replaced by other means Subluxation of right lens Subluxation of lens documented [facility] noteNo assessment information availableWMercy Memorial Hospital Work Phone: Evaluation note* Diagnosis PAD (peripheral artery disease) (HCC)- Primary Unspecified peripheral vascular disease Skin ulcer of toe of right foot, limited to breakdown of skin (HCC) [facility] Diagnosis Critical limb ischemia of right lower extremity (HCC)- Primary [facility]* Diagnosis Pre-op evaluation- Primary Skin ulcer [...] circulatory system, NEC [facility] Skin ulcer of toe of right foot, limited to breakdown of skin (HCC) PAD (peripheral artery disease) (HCC) Unspecified peripheral vascular disease Aftercare following surgery of the circulatory system Aftercare following surgery of the circulatory system, NEC [facility] Diagnosis Aftercare following surgery of the circulatory system- Primary Aftercare following surgery of the circulatory system, NEC PAD (peripheral artery disease) (HCC) Unspecified peripheral vascular disease [facility] Diagnosis 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 Hemorrhagic choroidal detachment [facility]* Diagnosis Right retinal detachment- Primary Unspecified retinal detachment Hemorrhagic choroidal detachment of right eye Hemorrhagic choroidal detachment Pseudophakia, right eye Lens replaced by other means documented in this encounter [facility] note* Diagnosis Acute deep vein thrombosis (DVT) of proximal vein of lower extremity, unspecified laterality (HCC)- Primary [facility]narrative)No reason for referral information availableWMercy Memorial Hospital Work Phone: Reason for visit Narrative* Imaging (Routine) - Closed Specialty Diagnoses / Procedures Referred By Elvin leyva Referred To Contact Cardiology Diagnoses Paroxysmal atrial fibrillation (HCC) Procedures Transthoracic echocardiogram (TTE) complete with contrast, bubble, strain, and 3D PRN NV ECHO TTHRC R-T 2D W/WOM-MODE COMPL SPEC&COLR D NV TTE W OR WO FOL WCNICK,Jared De La Garza MD [address] [place] [phone] Phone: tel: fax: Referral ID Status Reason Start Date Expiration Date Visits Re quested Visits Authorized [id number] Closed 04/20/2024 04/20/2025 1 1 [facility] for visit Narrative* Auth/Cert (Routine) Specialty Diagnoses / Procedures Referred By Elvin leyva Referred To Contact Diagnoses Aspiration pneumonitis (CMS/HCC) (HCC) LORENZA (acute kidney injury) (HCC) Vomiting and diarrhea Procedures . Abbi Long DO [address] [place] [address] Phone: tel: fax: [facility] [address] [place] [address] Phone: tel: Referral ID Status Reason Start Date Expiration Date Visits Re quested Visits Authorized [id number] 1 1 [facility] FeastieShahab P. Tabatabai, Broker for visit Narrative* Auth/Cert (Routine) Specialty Diagnoses [...] CATH RS&I CHG AORTOGRAPHY ABDOMINAL SERIALOGRAPHY RS&I NV INTRODUCTION CATHETER AORTA NV REVSC OPN/PRG FEM/POP W/ANGIOPLASTY UNI NV REVSC OPN/PRQ TIB/PAMELA W/ANGIOPLASTY UNI NV REVSC OPN/PRQ TIB/PAMELA W/STNT/ANGIOP SM VSL NV REVSC OPN/PRQ FEM/POP W/STNT/ANGIOP SM VSL AORTOILIAC ANGIOGRAPHY, RIGHT LOWER EXTREMITY ANGIOGRAPHY WITH RUNOFF, POSSIBLE SUPERFICIAL FEMORAL ARTERY/POPLITEAL/TIBIAL ANGIOPLASTY/STENTING Kristyn Blankenship MD [address] [place] [id number] Phone: tel: fax: [facility] MA[facility] OR [address] [place] [address] Phone: tel: Referral ID Status Reason Start Date Expiration Date Visits Re quested Visits Authorized [id number] 1 1 [facility] for visit Narrative* Imaging (Routine) - Closed [...] Kristyn Blankenship MD [address] [place] [address] Phone: tel: fax: [facility] [address] [place] [address] Phone: tel: fax: Referral ID Status Reason Start Date Expiration Date Visits Re quested Visits Authorized [id number] Closed 12/05/2024 12/05/2025 1 1 [facility] Discharge Instructions * Attachments The following attachments cannot be sent through Care Everywhere. * Pulp-Space Infection (Turkish) documented in this encounter* Instructions* Tiffany Zhu [...] Documents on File Type Date Recorded Patient [employer] Expl anation Power of Lead Assembler 04/06/2024 10:04 AM Date Activated Date Inactivated [...] Documents on File Type Date Recorded Patient [employer] Expl anation Power of Lead Assembler 04/16/2024 1:26 PM Power of Lead Assembler 04/06/2024 10:04 AM Healthcare Agents on File [...] Documents on File Type Date Recorded Patient [employer] Expl anation Power of Lead Assembler 04/16/2024 1:26 PM Power of Lead Assembler 04/06/2024 10:04 AM Date Activated Date Inactivated [...] Documents on File Type Date Recorded Patient [employer] Expl anation Advance Directive(s) 06/27/2024 12:58 PM [...] Documents on File Type Date Recorded Patient [employer] Expl anation Advance Directive(s) 06/27/2024 12:58 PM [...] Documents on File Type Date Recorded Patient [employer] Expl anation DNR (Do Not Resuscitate) 07/13/2024 10:35 AM Power of Lead Assembler 04/16/2024 1:26 PM Power of Lead Assembler 04/06/2024 10:04 AM Date Activated Date Inactivated [...] Documents on File Type Date Recorded Patient [employer] Expl anation DNR (Do Not Resuscitate) 07/13/2024 10:35 AM Power of Lead Assembler 04/16/2024 1:26 PM Power of Lead Assembler 04/06/2024 10:04 AM Date Activated Date Inactivated [...] First Alternate Health Care Agent Nadira Castillo Ocnvurjk-[id number] First Alternat e Health Care Agent Healthcare Agents on File Name Relationship Healthcare Agent Relationship Communication Damaris DO NOT CALL-TERMINALLY ILL [place] Friend First Alternate Health Care Agent Nadira Castillo Vxhczshq-vw-obw First Alternat e Health Care Agent Healthcare Agents on File Name Relationship Healthcare Agent Relationship Communication Damaris DO NOT CALL-TERMINALLY ILL [place] Friend First Alternate Health Care Agent Nadira Castillo Lbhtsudg-iy-cuh First Alternat e Health Care Agent Date Activated Date Inactivated Comments 08/03/2024 10:17 AM 08/16/2024 4:47 PM Healthcare Agents on File Name Relationship Healthcare Agent Relationship Communication Damaris DO NOT CALL-TERMINALLY ILL [place] Friend First Alternate Health Care Agent Nadira Castillo Qngompxu-[id number] First Alternat e Health Care Agent Healthcare Agents on File Name Relationship Healthcare Agent Relationship Communication Damaris DO NOT CALL-TERMINALLY ILL [place] Friend First Alternate Health Care Agent Nadira Castillo Lmrgnsqb-ur-swy First Alternat e Health Care Agent Healthcare Agents on File Name Relationship Healthcare Agent Relationship Communication Damaris DO NOT CALL-TERMINALLY ILL [place] Friend First Alternate Health Care Agent Nadira Castillo Svygfqtw-ld-sti First Alternat e Health Care Agent Healthcare Agents on File Name Relationship Healthcare Agent Relationshi p Communication Nadira Castillo Yngfztik-qb-wgo First Alternat e Health Care Agent Healthcare Agents on File Name Relationship Healthcare Agent Relationshi p Communication Nadira Castillo Gqbkdtqk-fy-egr First Alternat e Health Care Agent Summary [...] gland swelling Procedures CONSULT TO ENT OFFICE/[facility]IENT [facility] 60-74 MINUTES Jared Velazquez PA-C [address] [place] [address] Referral ID Status Reason Start Date Expiration Date Visits Requested Visits Authorized [id number] Authorized PCP Requested Referral 2 05/14/2023 1 1 Specialty Diagnoses / Procedures Referred By Elvin leyva Referred To Contact Radiology Diagnoses Localized swelling, mass and lump, neck Procedures CT soft tissue neck w IV contrast Jared Evans MD [address] [place] [phone] Referral ID Status Reason Start Date Expiration Date Visits Re quested Visits Authorized [id number] Closed 03/08/2023 04/07/2023 1 1 Specialty Diagnoses / Procedures Referred By Elvin leyva Referred To Contact Cardiology Diagnoses Other specified soft tissue disorders Procedures Vascular US lower extremity venous duplex left Jared Evans MD [address] [place] [phone] Referral ID Status Reason Start Date Expiration Date V isits Requested Visits Authorized [id number] Pending Review 05/24/2023 05/23/2024 1 1 Specialty Diagnoses / Procedures Referred By Elvin leyva Referred To Contact Radiology Diagnoses Abnormal findings on diagnostic imaging of other specified body structures Pain in left leg Procedures MR tibia fibula left w and wo IV contrast Jared Evans MD [address] [place] [phone] Referral ID Status Reason Start Date Expiration Date Visits Re quested Visits Authorized [id number] Closed 06/01/2023 05/31/2024 1 1 Health Concerns Infection Onset Date Last Indicated Resolved Time COVID-19 Confirmed Comment:First positive per [facility] system 06/02/2022. 06/16/2022 06/16/2022 06/19/2022 5:[address] Chief Complaint and Reason for Visit Chief Complaint Admit Date LABWORK August 20, 2024 5 :22am LABWORK September 03, 2024 5:00am [facility] LAB WORK September 03 8:18am [facility] LAB WORK September 10 5:00am Chief Complaint Admit Date LABWORK August 20, 2024 5 :22am LABWORK September 03, 2024 5:00am [facility] LAB WORK September 03 8:18am [facility] LAB WORK September 10 5:00am [facility] LAB WORK September 17, 2024 4: 00am Chief Complaint Admit Date LABWORK August 20, 2024 5 :22am LABWORK September 03, 2024 5:00am [facility] LAB WORK September 03 8:18am [facility] LAB WORK September 10 5:00am [facility] LAB WORK September 17, 2024 4: 00am [facility] LAB WORK October 08, 2024 5 :00am Additional Source Comments Reason for Visit (unrecogniz ed section and content) Reason Comments Post-op (Ophthalmology) Right Eye Specialty Diagnoses / Procedures Referred By Elvin leyva Referred To Contact HOSP INPATIENT Diagnoses Retinal detachment Acute retinal detachment Retinal detachment Procedures [facility] [address] [place] [address] Referral ID Status Reason Start Date Expiration Date Visits Re quested Visits Authorized [id number] 1 1 Reason Comments Hemorrhagic choroidal detachment [...] gland swelling Procedures CONSULT TO ENT OFFICE/[facility]IENT [facility] 60-74 MINUTES Jared Velazquez PA-C [address] [place] [address] Referral ID Status Reason Start Date Expiration Date V isits Requested Visits Authorized [id number] Closed PCP Requested Referral 05/14/2022 05/14/2023 1 1 Reason Comments Follow Up Gyant interaction - F/U - attempt made. No answer. Reason Comments Follow Up Phone Call All Clear Specialty Diagnoses / Procedures Referred By Elvin leyva Referred To Contact Radiology Diagnoses Localized swelling, mass and lump, neck Procedures CT soft tissue neck w IV contrast Jared Evans MD [address] [place] [phone] Referral ID Status Reason Start Date Expiration Date Visits Re quested Visits Authorized [id number] Closed 03/08/2023 04/07/2023 1 1 Specialty Diagnoses / Procedures Referred By Elvin leyva Referred To Contact Cardiology Diagnoses Other specified soft tissue disorders Procedures Vascular US lower extremity venous duplex left Jared Evans MD [address] [place] [phone] Referral ID Status Reason Start Date Expiration Date V isits Requested Visits Authorized [id number] Pending Review 05/24/2023 05/23/2024 1 1 Specialty Diagnoses / Procedures Referred By Contac t Referred To Contact Radiology Diagnoses Abnormal findings on diagnostic imaging of other specified body structures Pain in left leg Procedures MR tibia fibula left w and wo IV contrast Jared Evans MD [address] [place] [phone] Referral ID Status Reason Start Date Expiration Date Visits Re quested Visits Authorized [id number] Closed 06/01/2023 05/31/2024 1 1 Reason Comments New Patient Mass left LE Specialty Diagnoses / Procedures Referred By Contac t Referred To Contact Sports Medicine Diagnoses Pain in leg, unspecified Jared Evans MD [address] [place] [phone] [place] [address] Referral ID Status Reason Start Date Expiration Date Visits Re quested Visits Authorized [id number] Closed 07/06/2023 07/05/2024 1 1 Reason Comments Numbness Leg Swelling Specialty Diagnoses / Procedures Referred By Contac t Referred To Contact Diagnoses Right leg pain Peripheral arterial disease (HCC) Right leg weakness Atrial fibrillation, unspecified type (HCC) Procedures . Pratibha Avelar, [address] [place] [address] [phone] Referral ID Status Reason Start Date Expiration Date Visits Re quested Visits Authorized [id number] 1 1 Reason Comments Follow-up 1st follow up RLE me chanical thrombectomy 04/06/24 (Krzysztof) Reason Onset Date Comments Med Refill 04/27/2024 Specialty Diagnoses / Procedures Referred By Contac t Referred To Contact Diagnoses [I63.9] - Cerebral infarction [facility] [address] [place] [address] Referral ID Status Reason Start Date Expiration Date V isits Requested Visits Authorized [id number] New Request 06/20/2024 08/19/2024 Reason Comments Eye Problem Pt reports blurred v ision, dizziness, and headache. LNW 07/04/24 @ 2130. Hx of strokes x 2, HTN, Afib, and right eye retinal detachment. Specialty Diagnoses / Procedures Referred By Elvin leyva Referred To Contact Diagnoses Retinal detachment, right Vision loss of right eye Procedures . Silvio Peres MD [address] [place] [address] Phone: tel: fax: [facility] [address] [place] [phone] Phone: tel: Referral ID Status Reason Start Date Expiration Date Visits Re quested Visits Authorized [id number] 1 1 Reason Comments Eye Pain Right [...] OF VITREOUS, CHOROIDAL FLUID, PARS PLANA APPROACH [facility] [address] [address] Referral ID Status Reason Start Date Expiration Date Visits Re quested Visits Authorized [id number] 1 1 Reason Comments 1 week post [...] and diarrhea Procedures . Abbi Long DO [address] [place] [address] Phone: tel: fax: [facility] [address] [place] [address] Phone: tel: Referral ID Status Reason Start Date Expiration Date Visits Re quested Visits Authorized [id number] 1 1 Reason Comments Follow-up 3 month follow up, P AD check ([facility] Andrew Musella) Reason Comments Post-op (Ophthalmology) Right Eye 1 marisela h Reason Comments Post op OD Reason Comments Follow-up R leg pain with grea t toe wound-PVR and CTA w runoff 03/2024 Reason Comments Follow-up 1st follow up RLE an juliana, possible SFA/pop/tib angioplasty/stenting 11/22/24 Reason Comments 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; 2nd follow up RLE angio, SFA/pop/tib angioplasty/stenting 11/22/24 ([facility] [phone]) Reason Comments Post-op (Ophthalmology) Right Eye Retinal Detachment OD Eye Crusting OD In the mornings Reason Comments Follow-up INFORMATION SOURCE (unrecogn ized section and content) DATE CREATED AUTHOR 03/13/2020 [facility] DATE CREATED AUTHOR AUTHOR'S ORGANIZ ATION 06/30/2022 [facility] DATE CREATED AUTHOR AUTHOR'S ORGANIZ ATION 07/10/2024 [facility] DATE CREATED AUTHOR AUTHOR'S ORGANIZ ATION 12/14/2024 [facility] DATE CREATED AUTHOR AUTHOR'S ORGANIZ ATION 01/05/2025 [facility] DATE CREATED AUTHOR AUTHOR'S ORGANIZ ATION 03/17/2025 [facility] DATE CREATED AUTHOR AUTHOR'S ORGANIZ ATION 05/29/2025 [facility] Source Comments (unrecognize d section and content) In the event this informatio n is protected by the Federal Confidentiality of Alcohol and Drug Abuse Patient Records regulations: The Federal rules restrict any use of the information to criminally investigate or prosecute any alcohol or drug abuse patient.[facility] the event this information is protected by the Federal Confidentiality of Alcohol and Drug Abuse Patient Records regulations: The Federal rules restrict any use of the information to criminally investigate or prosecute any alcohol or drug abuse patient.[facility] the event this information is protected by the Federal Confidentiality of Alcohol and Drug Abuse Patient Records regulations: The Federal rules restrict any use of the information to criminally investigate or prosecute any alcohol or drug abuse patient.[facility] HospitalIn the event this information is protected by the Federal Confidentiality of Alcohol and Drug Abuse Patient Records regulations: The Federal rules restrict any use of the information to criminally investigate or prosecute any alcohol or drug abuse patient.[facility] Hospital[facility] the event this information is protected by the Federal Confidentiality of Alcohol and Drug Abuse Patient Records regulations: The Federal rules restrict any use of the information to criminally investigate or prosecute any alcohol or drug abuse patient.[facility] Hospital[facility] the event this information is protected by the Federal Confidentiality of Alcohol and Drug Abuse Patient Records regulations: The Federal rules restrict any use of the information to criminally investigate or prosecute any alcohol or drug abuse patient.[facility] Hospital[facility] the event this information is protected by the Federal Confidentiality of Alcohol and Drug Abuse Patient Records regulations: The Federal rules restrict any use of the information to criminally investigate or prosecute any alcohol or drug abuse patient.[facility] Hospital[facility] the event this information is protected by the Federal Confidentiality of Alcohol and Drug Abuse Patient Records regulations: The Federal rules restrict any use of the information to criminally investigate or prosecute any alcohol or drug abuse patient.[facility] HospitalIn the event this information is protected by the Federal Confidentiality of Alcohol and Drug Abuse Patient Records regulations: The Federal rules restrict any use of the information to criminally investigate or prosecute any alcohol or drug abuse patient.[facility] Hospital[facility] the event this information is protected by the Federal Confidentiality of Alcohol and Drug Abuse Patient Records regulations: The Federal rules restrict any use of the information to criminally investigate or prosecute any alcohol or drug abuse patient.[facility] Hospital[facility] the event this information is protected by the Federal Confidentiality of Alcohol and Drug Abuse Patient Records regulations: The Federal rules restrict any use of the information to criminally investigate or prosecute any alcohol or drug abuse patient.[facility] HospitalIn the event this information is protected by the Federal Confidentiality of Alcohol and Drug Abuse Patient Records regulations: The Federal rules restrict any use of the information to criminally investigate or prosecute any alcohol or drug abuse patient.[facility] HospitalIn the event this information is protected by the Federal Confidentiality of Alcohol and Drug Abuse Patient Records regulations: The Federal rules restrict any use of the information to criminally investigate or prosecute any alcohol or drug abuse patient.[facility] HospitalIn the event this information is protected by the Federal Confidentiality of Alcohol and Drug Abuse Patient Records regulations: The Federal rules restrict any use of the information to criminally investigate or prosecute any alcohol or drug abuse patient.[facility] HospitalIn the event this information is protected by the Federal Confidentiality of Alcohol and Drug Abuse Patient Records regulations: The Federal rules restrict any use of the information to criminally investigate or prosecute any alcohol or drug abuse patient.[facility] HospitalIn the event this information is protected by the Federal Confidentiality of Alcohol and Drug Abuse Patient Records regulations: The Federal rules restrict any use of the information to criminally investigate or prosecute any alcohol or drug abuse patient.[facility] HospitalIn the event this information is protected by the Federal Confidentiality of Alcohol and Drug Abuse Patient Records regulations: The Federal rules restrict any use of the information to criminally investigate or prosecute any alcohol or drug abuse patient.[facility] HospitalIn the event this information is protected by the Federal Confidentiality of Alcohol and Drug Abuse Patient Records regulations: The Federal rules restrict any use of the information to criminally investigate or prosecute any alcohol or drug abuse patient.[facility] HospitalIn the event this information is protected by the Federal Confidentiality of Alcohol and Drug Abuse Patient Records regulations: The Federal rules restrict any use of the information to criminally investigate or prosecute any alcohol or drug abuse patient.[facility] Care Teams (unrecognized sec tion and content) Fringe Weaver Relationship Specialty Start Date End Date Pcp, No PCP - General 01/30/22 08/17/22 Fringe Weaver Relationship Specialty Start Date End Date Pcp, No PCP - General 01/30/22 08/17/22 Fringe Weaver Relationship Specialty Start Date End Date Jared vEans MD [address] [place] [phone] PCP - General Family Medicine 05/18/22 Fringe Weaver Relationship Specialty Start Date End Date Jared Evans MD [address] [place] [phone] PCP - General Family Medicine 05/18/22 Fringe Weaver Relationship Specialty Start Date End Date Jared Evans MD [address] [place] [phone] PCP - General Family Medicine 05/18/22 Fringe Weaver Relationship Specialty Start Date End Date Jared Evans MD [address] [place] [address] PCP - General 03/06/20 Fringe Weaver Relationship Specialty Start Date End Date Jared Evans MD [address] [place] [address] PCP - General 03/06/20 Fringe Weaver Relationship Specialty Start Date End Date Jared Evans MD [address] [place] [address] PCP - General 03/06/20 Fringe Weaver Relationship Specialty Start Date End Date Jared Evans MD [address] [place] [address] PCP - General 03/06/20 Fringe Weaver Relationship Specialty Start Date End Date Jared Evans MD [address] [place] [address] PCP - General 03/06/20 Fringe Weaver Relationship Specialty Start Date End Date Jared Evans MD [address] [place] [address] PCP - General 03/06/20 Fringe Weaver Relationship Specialty Start Date End Date Jared Evans MD [address] [place] [address] PCP - General 03/06/20 Fringe Weaver Relationship Specialty Start Date End Date Jared Evans MD [address] [place] [address] PCP - General 03/06/20 Fringe Weaver Relationship Specialty Start Date End Date Jared Evans MD [address] [place] [address] PCP - General 03/06/20 Fringe Weaver Relationship Specialty Start Date End Date Jared Evans MD [address] [place] [address] PCP - General 03/06/20 Fringe Weaver Relationship Specialty Start Date End Date Jared Evans MD [address] [place] [address] PCP - General 03/06/20 Fringe Weaver Relationship Specialty Start Date End Date Jared Evans MD [address] [place] [address] PCP - General 03/06/20 Fringe Weaver Relationship Specialty Start Date End Date Jared Evans MD [address] [place] [address] PCP - General 03/06/20 Henok Hernandez PA-C [address] [place] [address] Physician Supervisor Hard Candy Physician Supervisor Hard Candy 04/19/24 Fringe Weaver Relationship Specialty Start Date End Date Jared Evans MD [address] [place] [address] PCP - General 03/06/20 Henok Hernandez PA-C [address] [place] [address] Physician Supervisor Hard Candy Physician Supervisor Hard Candy 04/19/24 Fringe Weaver Relationship Specialty Start Date End Date Jared Evans MD [address] [place] [address] PCP - General 03/06/20 Henok Hernandez PA-C [address] [place] [address] Physician Supervisor Hard Candy Physician Supervisor Hard Candy 04/19/24 Fringe Weaver Relationship Specialty Start Date End Date Jared Evans MD [address] [place] [address] PCP - General 03/06/20 Henok Hernandez PA-C [address] [place] [address] Physician Supervisor Hard Candy Physician Supervisor Hard Candy 04/19/24 Fringe Weaver Relationship Specialty Start Date End Date Jared Evans MD [address] [place] [address] PCP - General 03/06/20 Henok Hernandez PA-C [address] [place] [address] Physician Supervisor Hard Candy Physician Supervisor Hard Candy 04/19/24 Fringe Weaver Relationship Specialty Start Date End Date Jared Evans MD [address] [place] [address] PCP - General 03/06/20 Henok Lantigua PA-C [address] [place] [address] Physician Supervisor Hard Candy Physician Supervisor Hard Candy 04/19/24 Fringe Weaver Relationship Specialty Start Date End Date Jared Evans MD [address] [place] [address] PCP - General 03/06/20 Henok Lantigua PA-C [address] [place] [address] Physician Supervisor Hard Candy Physician Supervisor Hard Candy 04/19/24 Fringe Weaver Relationship Specialty Start Date End Date Jared Evans MD [address] [place] [address] PCP - General Family Medicine 05/18/22 Fringe Weaver Relationship Specialty Start Date End Date Jared Evans MD [address] [place] [address] PCP - General Family Medicine 05/18/22 Fringe Weaver Relationship Specialty Start Date End Date Jared Evans MD [facility] [place] [address] PCP - General 03/06/20 Henok Lantigua PA-C [address] [place] [address] Physician Supervisor Hard Candy Physician Supervisor Hard Candy 04/19/24 Fringe Weaver Relationship Specialty Start Date End Date Jared Evans MD [address] [place] [address] PCP - General Family Medicine 05/18/22 Fringe Weaver Relationship Specialty Start Date End Date Jared Evans MD [address] [place] [address] PCP - General Family Medicine 05/18/22 Fringe Weaver Relationship Specialty Start Date End Date Jared Evans MD [address] [place] [address] PCP - General Family Medicine 05/18/22 Fringe Weaver Relationship Specialty Start Date End Date Jared Evans MD [address] [place] [address] PCP - General Family Medicine 05/18/22 Fringe Weaver Relationship Specialty Start Date End Date Jared Evans MD [address] [place] [address] PCP - General Family Medicine 05/18/22 Fringe Weaver Relationship Specialty Start Date End Date Jared Evans MD [address] [place] [address] PCP - General 03/06/20 Henok Lantigua PA-C [address] [place] [address] Physician Supervisor Hard Candy Physician Supervisor Hard Candy 04/19/24 Fringe Weaver Relationship Specialty Start Date End Date Jared Evans MD [address] [place] [address] PCP - General Family Medicine 05/18/22 Fringe Weaver Relationship Specialty Start Date End Date Jared Evans MD [address] [place] [address] PCP - General Family Medicine 05/18/22 Fringe Weaver Relationship Specialty Start Date End Date Jared Evans MD [address] [place] [address] PCP - General Family Medicine 05/18/22 Fringe Weaver Relationship Specialty Start Date End Date Jarde Evans MD [address] [place] [address] PCP - General 03/06/20 Henok Lantigua PA-C [address] [place] [address] Physician Supervisor Hard Candy Physician Supervisor Hard Candy 04/19/24 Fringe Weaver Relationship Specialty Start Date End Date Jared Evans MD [address] [place] [address] PCP - General 03/06/20 Henok Lantigua PA-C [address] [place] [address] Physician Supervisor Hard Candy Physician Supervisor Hard Candy 04/19/24 Fringe Weaver Relationship Specialty Start Date End Date Jared Evans MD [address] [place] [address] PCP - General 03/06/20 Henok Lantigua PA-C [address] [place] [address] Physician Supervisor Hard Candy Physician Supervisor Hard Candy 04/19/[address] [address] Prison Facility 08/22/24 Fringe Weaver Relationship Specialty Start Date End Date Jared Evans MD [address] [place] [address] PCP - General Family Medicine 05/18/22 Fringe Weaver Relationship Specialty Start Date End Date Jared Evans MD [address] [place] [address] PCP - General Family Medicine 05/18/22 Team [...] October 08, 2024 End: October 08, 2024 Fringe Weaver Relationship Specialty Start Date End Date Jared Evans MD [address] [facility] [place] [address] PCP - General 03/06/20 Henok Lantigua PA-C [address] [address] Physician Supervisor Hard Candy Physician Supervisor Hard Candy 04/19/24 [facility] [address] [place] [address] Prison Facility 08/22/24 Fringe Weaver Relationship Specialty Start Date End Date Jared Evans MD [address] [facility] [place] [address] PCP - General 03/06/20 Henok Lantigua PA-C [address] [address] Physician Supervisor Hard Candy Physician Supervisor Hard Candy 04/19/24 [facility] [address] [place] [address] Prison Facility 08/22/24 Fringe Weaver Relationship Specialty Start Date End Date Jared Evans MD [address] [facility] [place] [address] PCP - General 03/06/20 Henok Lantigua PA-C [address] [address] Physician Supervisor Hard Candy Physician Supervisor Hard Candy 04/19/24 [facility] [address] [place] [address] Prison Facility 08/22/24 Fringe Weaver Relationship Specialty Start Date End Date Jared Evans MD [address] [place] [address] PCP - General 03/06/20 Henok Lantigua PA-C [address] [place] [address] Physician Supervisor Hard Candy Physician Supervisor Hard Candy 04/19/24 [facility] [address] [place] [address] Prison Facility 08/22/24 Fringe Weaver Relationship Specialty Start Date End Date Jared Evans MD [address] [place] [address] PCP - General 03/06/20 Henok Lantigua PA-C [address] [address] Physician Supervisor Hard Candy Physician Supervisor Hard Candy 04/19/24 [facility] [address] [place] [address] Prison Facility 08/22/24 Fringe Weaver Relationship Specialty Start Date End Date Megan Montoya [facility] [place] [phone] PCP - General Internal Medicine 12/13/24 Henok Lantigua PA-C [address] [address] Physician Supervisor Hard Candy Physician Supervisor Hard Candy 04/19/24 [facility] [address] [place] [address] Prison Facility 08/22/24 Fringe Weaver Relationship Specialty Start Date End Date Megan Montoya [address] [place] [phone] PCP - General Internal Medicine 12/13/24 Henok Lantigua PA-C [address] [place] [address] Physician Supervisor Hard Candy Physician Supervisor Hard Candy 04/19/24 Kristyn Blankenship MD [address] [facility] [address] [place] [address] Consulting Physician Vascular Surgery 12/24/24 [facility] [address] [place] [address] Prison Facility 08/22/24 Fringe Weaver Relationship Specialty Start Date End Date Jared Evans MD [address] [place] [address] PCP - General Family Medicine 05/18/22 Fringe Weaver Relationship Specialty Start Date End Date Jared Evans MD [address] [place] [address] PCP - General Family Medicine 05/18/22 Fringe Weaver Relationship Specialty Start Date End Date Megan Montoya [address] [place] [address] PCP - General Internal Medicine 12/13/24 Henok Lantigua PA-C [address] [place] [address] Physician Supervisor Hard Candy Physician Supervisor Hard Candy 04/19/24 Kristyn Blankenship MD [address] [place] [address] Consulting Physician Vascular Surgery 12/24/24 [facility] [address] [place], [place] [address] Prison Facility 08/22/24 Fringe Weaver Relationship Specialty Start Date End Date LuanneMegan pastrana [address] [place] [phone] PCP - General Internal Medicine 12/13/24 Henok Lantigua PA-C [address] [place] [address] Physician Supervisor Hard Candy Physician Supervisor Hard Candy 04/19/24 Kristyn Blankenship MD [address] [place] [address] Consulting Physician Vascular Surgery 12/24/24 Andre Patel MD [address] [place] [address] Consulting Physician Hematology and Oncology 03/15/25 [facility] [address] [place] [address] Prison Facility 08/22/24 Scheduled Active and Recently Administ [...] sedation for opioid reversal - MUST notify wallpaper consultant provider immediately after first dose, may give [...] BE BASED ON THE PRIMARY CLINICAL RECORDS. [employer] provides no warranty or guarantee of the accuracy or completeness of information in this document.
[2025-07-15 08:04] LABS: Hematocrit 33.5 % (37-47); Hemoglobin 11.1 g/dL (12.0-15.0); Mean Corp Hgb Conc 33.1 g/dL (32-36); Mean Corpuscular Volume 90.1 fL (81-99); Mean Platelet Vol. 9.6 fl (6.2-12.0); Platelet Count 248 K/mm3 (150-450); RBC Distribution Width CV 15.2 % (11.6-14.6); RBC Distribution Width SD 50.1 fl (35.1-43.9); Red Blood Count 3.72 M/mm3 (4.2-5.4); White Blood Count 4.1 K/mm3 (4.4-11.0)
[2025-07-15 08:21] LABS: Anion Gap 7 (7-18); BUN 21 mg/dL (4-19); BUN/Creat Ratio 17.3 RATIO (10-20); Calcium,Total 8.9 mg/dL (7.6-11.0); Carbon Dioxide 23.1 mmol/L (20.0-29.0); Chloride 108 mmol/L (96-106); Glucose 98 mg/dL (70-99); Potassium 5.3 mmol/L (3.5-5.1)
== END ==
LOC: OLS.SANC 05:00
PROVIDERS: Visit Provider Internal Medicine
DX: I48.91 Unspecified atrial fibrillation (principal); J44.9 Chronic obstructive pulmonary disease, unspecified; I10 Essential (primary) hypertension
CPT/HCPCS: 36415; 80048; 85027